=== PATIENT | female | born 1985 | race Caucasian/White ===

== ENCOUNTER 2021-01-24 19:00 | Emergency (ER) | payer MEDICAID, SELFPAY ==
[2021-01-24] VITALS (8 sets, daily range): BP systolic 116–146; BP diastolic 65–97; PULSE 64–110; RESP 13–23; TEMP 36.5; O2SAT 98–100
[2021-01-24] MEDS: Normal Saline 1,000 ML 1000 ML IV ×2 (19:17→20:00)
--- NOTE | 2021-01-24 19:21 | ED.GENADUL_ITS ---
Discharge Plan Disposition Patient Disposition: HOME Condition: Stable Discharge Details Clinical Impression: Vomiting Primary Care Provider: Unknown,Unknown ED Provider: Katiana Adams Home Meds and New Rx's Prescriptions: New ondansetron 4 mg tablet,disintegrating 4 mg PO Q8H PRN5 Days Qty: 15 RF: 0 sucralfate [Carafate] 1 gram tablet 1 g PO QACHS Qty: 7 RF: 0 No Action gabapentin 300 mg Tablet 300 - 900 mg PO DIRECTED RF: 0 lorazepam 0.5 mg Tablet 0.5 mg PO BID PRNRF: 0 metoclopramide HCl [Reglan] 5 mg Tablet 5 mg PO PRN PRNRF: 0 Discharge Instructions Instructions: Dehydration (ED), Gastroparesis (ED) Additional Instructions: Take the medications as directed. Zofran 20 minutes before meals and Carafate before meals. You may alternate the Reglan and Zofran. Follow up with primary care provider in 3-5 days. Return to ED sooner if any worsening or concerns. Increase oral fluids. Medical Decision Making 35-year-old female with history of gastroparesis presents to the ER chief complaint of vomiting which began at 4 this morning. She has not been unable to hold anything down including liquids. She did have an episode of emesis upon arrival after attempting to drink some water and vomited some clear fluid approximately 700 cc. She denies any abdominal pain she does endorse some mild diarrhea and some heartburn-like symptoms with vomiting. Denies any fever or chills. She did take approximately 10 mg of Reglan p.o. prior to arrival but she was unable to hold down. She reports that she has an episode of this nature approximately once a month. At this time work-up ordered including CBC, CMP, magnesium, urinalysis. Normal saline 1 L ordered and 10 mg Reglan IV. CBC shows elevated white blood cell count of 21.04, platelets 417, absolute neutrophils 18.7 anion gap 11.2, urinalysis shows trace protein greater than 160 ketones and many epithelial cells culture is not indicated at this time due to contaminated specimen. Due to elevated white blood cell count will order a CT abdomen pelvis. 2053: Patient returned from CT complaint of increasing nausea and heartburn. Pepcid and Zofran ordered. Imaging protocol: Computed tomography of the abdomen and pelvis with contrast. COMPARISON: No relevant prior studies available. FINDINGS: Mediastinal space: Small sliding hiatal hernia. Liver: Normal. No mass. Gallbladder and bile ducts: Normal. No calcified stones. No ductal dilation. Pancreas: Normal. No ductal dilation. Spleen: Normal. No splenomegaly. Adrenal glands: Normal. No mass. Kidneys and ureters: Punctate non-obstructing left renal calculus. Kidneys and ureters are otherwise unremarkable. Stomach and bowel: Unremarkable. No obstruction. No mucosal thickening. Appendix: Normal appendix. Intraperitoneal space: Unremarkable. No free air. No significant fluid collection. Vasculature: Unremarkable. No abdominal aortic aneurysm. Lymph nodes: Unremarkable. No enlarged lymph nodes. Urinary bladder: Urinary bladder is nondistended. Reproductive: Unremarkable as visualized. Bones/joints: Unremarkable. No acute fracture. Soft tissues: Unremarkable. IMPRESSION: 1. No acute abnormality. 2. Punctate nonobstructing left renal calculus. 3. Small sliding hiatal hernia. Thank you for allowing us to participate in the care of your patient. Dictated and Authenticated by: Broderick Quiñones MD Discussed CT results with patient and family who verbalized understanding. Patient is reporting improvement of her symptoms. Patient was given Zofran and sulcal fate to go. Patient remained hemodynamically stable throughout stay. This text was generated using [employer] dictation system, please disregard any oddities of phrase or misspellings. HPI General Mode of arrival: ambulatory . Date/Time Provider Initiated Documentation: 01/24/21 19:04 . Limitations to Documentation: no limitations . Information obtained by: patient and family (Significant other) . HPI Narrative: 35-year-old female with history of gastroparesis presents to the ER chief complaint of vomiting which began at 4 this morning. She has not been unable to hold anything down including liquids. She did have an episode of emesis upon arrival after attempting to drink some water and vomited some clear fluid approximately 700 cc. She denies any abdominal pain she does endorse some mild diarrhea and some heartburn-like symptoms with vomiting. Denies any fever or chills. She did take approximately 10 mg of Reglan p.o. prior to arrival but she was unable to hold down. She reports that she has an episode of this nature approximately once a month. Related Data Home Medications Medication Instructions Recorded Confirmed gabapentin 300 - 900 mg PO DIRECTED 01/24/21 01/24/21 lorazepam 0.5 mg PO BID PRN 01/24/21 01/24/21 metoclopramide HCl [Reglan] 5 mg PO PRN PRN 01/24/21 01/24/21 ondansetron 4 mg PO Q8H PRN 5 Days #15 tab 01/24/21 sucralfate [Carafate] 1 g PO QACHS #7 tab 01/24/21 Previous Rx's Medication Instructions Recorded ondansetron 4 mg PO Q8H PRN 5 Days #15 tab 01/24/21 sucralfate [Carafate] 1 g PO QACHS #7 tab 01/24/21 Allergies Allergy/AdvReac Type Severity Reaction Status Date / Time ibuprofen [From Advil] Allergy Severe throat Unverified 01/24/21 19:16 closes General Stated Complaint: Nausea/Vomit/Diar ARNOLD: 3 Review of Systems Narrative: Constitutional: Negative for weight loss, alert and oriented, well groomed, normal body habitus, appears comfortable. HEENT: Denies trauma, headaches, blurry vision, nasal discharge, sore throat, trouble swallowing. Chest: Denies chest pain, palpitations, irregular rhythm, hypertension. Respiratory: Denies Shortness of breath, cough, hemoptysis. GI: Denies abdominal pain, constipation. Positive nausea vomiting mild diarrhea. : Denies dysuria, hematuria, flank pain, rectal bleeding. Neuro: Denies dizziness, blurry vision, weakness, syncope, headache or facial numbness. Hematologic: Denies easy bruising, intolerance to heat or cold, hair loss. [facility] Social History Smoking/Tobacco Use Status: Current every day Tobacco Type: cigarettes Smoking risk assessment performed?: Yes Alcohol Intake: never Drug use: Socially Substance use type: marijuana Do you feel safe at home: Yes Do you feel safe in your relationship?: Yes Exam Narrative Exam Narrative: Constitutional: Alert and oriented x3. Appears stated age. Normal body habitus. Head: Normocephalic, no trauma. Eyes: Pupils PERRLA, Red reflex noted, EOM's intact. Eyelids symmetrical without lesions, discharge, or swelling. ENT: Bilateral TM's WNL, External ear normal to inspection, no mastoid TTP, swelling, or erythema, Nasal turbinates WNL, no nasal discharge. Normal dentition, Posterior pharynx WNL, no exudate. Chest: Patient with sinus arrhythmia noted on monitor, normal S1, S2, distal pulses intact. Resp: Lungs clear to auscultation bilaterally, no wheezes, rales, or rhonchi. Abdomen: Soft, nondistended, nontender to palpation all 4 quadrants. Musculoskeletal: Normal gait, 5/5 strength to all four extremities. Skin: No suspicious rashes or lesions. Capillary refill less than 2 sec. Neurologic: Cranial nerves II-XII intact. Alert and oriented x 3. DTR's intact. Hematologic/Lymphatic: No ecchymosis, no lymphadenopathy. Course Vital Signs Vital signs: Vital Signs Temperature 36.5 C 01/24/21 19:06 Pulse 64 01/24/21 19:06 Respiratory Rate 14 01/24/21 19:06 Blood Pressure 116/71 01/24/21 19:06 Pulse Oximetry 100 01/24/21 19:06 Temperature 36.5 C 01/24/21 19:06 Temperature Source Skin 01/24/21 19:06 Pulse 64 01/24/21 19:06 Respiratory Rate 14 01/24/21 19:06 Blood Pressure 116/71 01/24/21 19:06 Pulse Oximetry 100 01/24/21 19:06 Oxygen Delivery Method Room Air 01/24/21 19:06 Oxygen Flow Rate 0 01/24/21 19:06 Pain Level 9 01/24/21 19:06 Comment 01/24/21 19:06
[2021-01-24] MEDS: Metoclopramide 10 MG/2 ML VIAL IVP (19:25)
[2021-01-24 19:30] LABS: Abs Immature Grans 0.09 10^3/uL (0.0-0.06); Absolute Basophil Count 0.04 10^3/uL (0.0-0.2); Absolute Lymphocyte Count 1.54 10^3/uL (1.2-3.4); Absolute Monocyte Count 0.67 10^3/uL (0.1-0.8); Basophils % 0.2; HCT 42.6 % (36.0-46.0); HGB 14.7 g/dL (11.2-15.7); Immature Grans % 0.4; Lymphocytes % 7.3; MCH 31.1 pg (27.0-33.0); MCHC 34.5 % (32.0-36.0); MCV 90.1 fL (80-95); MPV 9.8 fL (8.0-11.0); Monocytes % 3.2; Neutrophils % 88.9; Nucleated RBC 0 %; Platelet Count 417 10^3/uL (130-400); RBC 4.73 10^6/uL (3.93-5.22); RDW 12.1 % (11.7-14.6); WBC 21.04 10^3/uL (4.4-10.8)
[2021-01-24 19:44] LABS: ALT 25 U/L (14-59); AST 11 U/L (15-37); Alkaline Phosphatase 107 U/L (46-116); Anion Gap 11.2 mmol/L (3-11); BUN 16 mg/dL (7-18); Bilirubin, Total 0.4 mg/dL (0.2-1.0); CO2 26.8 mmol/L (21.0-32.0); Calcium 9.6 mg/dL (8.5-10.1); Chloride 102 mmol/L (98-107); Glucose 295 mg/dL (74-106); Magnesium 1.8 mg/dL (1.8-2.4); Potassium 3.7 mmol/L (3.5-5.1); Sodium 140 mmol/L (136-145); Total Protein 8.5 g/dL (6.4-8.2)
[2021-01-24 19:55] LABS: Lipase 105 U/L (73-393)
--- NOTE | 2021-01-24 20:00 | DI.CT_ITS ---
Exam(s) CT ABDOMEN PELVIS W EXAM: CT ABDOMEN PELVIS W CLINICAL HISTORY: Vomiting, hx of gastroparesis,. TECHNIQUE: Imaging Protocol: Axial computed tomography images with coronal and sagittal reformatted images were created and reviewed CONTRAST MATERIAL: Intravenous: Omnipaque 100cc Oral: None COMPARISON: No exams were available for comparison FINDINGS: VISUALIZED LUNG BASES: No nodules nor pleural effusions evident. ABDOMEN: There is no ascites. LIVER: There are no focal hepatic lesions evident . GALLBLADDER/BILIARY: No obvious gallbladder pathology. CBD is not dilated. PANCREAS: No evidence of pancreatic mass nor dilatation of the pancreatic duct. SPLEEN: Spleen is not enlarged. No obvious intrasplenic lesions. Splenic and portal veins are paten t. ADRENALS: There are no significant adrenal masses. KIDNEYS:No cysts evident. No solid renal masses. There is a 3 millimeter nonobstructive calculus in the lower pole of the left kidney. No calculi in the right kidney. No hydronephrosis on either side . No hydroureter. Ureterovesical junctions appear unremarkable. There are no calculi in the nondis tended urinary bladder.. ABDOMINAL AORTA: Abdominal aorta is not enlarged. LYMPH NODES:There is no retroperitineal nor paraaortic adenopathy. ABDOMINAL WALL: No evidence of significant anterior abdominal wall hernia. GI: There is no evidence of bowel obstruction, free air, nor abscess. PELVIS: GI: No evidence of appendicitis.No evidence of sigmoid diverticulitis. LYMPH NODES: There is no intrapelvic nor inguinal adenopathy. REPRODUCTIVE: Uterus and ovaries appear age-appropriate. No free fluid in the pelvis. URINARY BLADDER: No calculi nor obvious masses evident OSSEOUS: No significant osseous lesions. IMPRESSION: 1. There is a nonobstructive 3 millimeter calculus in the lower pole region of the left kidney. The no hydronephrosis. No other significant renal findings. RADIATION DOSE DELIVERED: 1,153.73mGy.cm Total DLP DATA REPOSITORY: All CT scans at this facility are submitted to the National Radiology Data Registry (NRDR) Dose Index Registry (DIR) with the [employer] (ACR). RADIATION OPTIMIZATION: All CT scans at this facility use at least one of these dose optimization te chniques: automated exposure control; mA and/or kV adjustment per patient size (includes targeted exa ms where dose is matched to clinical indication); or iterative reconstruction.
[2021-01-24 20:01] LABS: Bilirubin Negative (Negative); Blood Negative (Negative); Clarity Sl Cloudy (Clear); Glucose 500 mg/dL (Negative); Ketones >=160 mg/dL (Negative); Leukocyte Esterase Negative (Negative); Nitrite Negative (Negative); Specific Gravity >= 1.030 (1.005-1.025); Urobilinogen 0.2 EU/dL (Up TO 0.2); pH 5.5 (5-8)
[2021-01-24 20:07] LABS: Bacteria Many HPF (Negative); C & S Indicated? No/Sq. Contamination; Crystals Negative HPF (Negative); Epithelial Cells Many HPF (Negative); Mucus Negative (Negative); RBC 0-2 HPF (0-2); WBC 0-2 HPF (0-5)
[2021-01-24] MEDS: Omnipaque 350 MG/ML 100 ML BTL IJ (20:34)
[2021-01-24] MEDS: Ondansetron 4 MG/2 ML VIAL IVP (20:57)
[2021-01-24] MEDS: FAMOTIDINE 20 MG/50 ML BAG 200 MG IVPB (20:58)
--- NOTE | 2021-01-24 21:02 | DI.VRAD_ITS ---
PROCEDURE INFORMATION: Exam: CT Abdomen And Pelvis With Contrast Exam date and time: 01/24/2021 8:02 PM Age: 35 years old Clinical indication: Abdominal pain TECHNIQUE: Imaging protocol: Computed tomography of the abdomen and pelvis with contrast. COMPARISON: No relevant prior studies available. FINDINGS: Mediastinal space: Small sliding hiatal hernia. Liver: Normal. No mass. Gallbladder and bile ducts: Normal. No calcified stones. No ductal dilation. Pancreas: Normal. No ductal dilation. Spleen: Normal. No splenomegaly. Adrenal glands: Normal. No mass. Kidneys and ureters: Punctate non-obstructing left renal calculus. Kidneys and ureters are otherwise unremarkable. Stomach and bowel: Unremarkable. No obstruction. No mucosal thickening. Appendix: Normal appendix. Intraperitoneal space: Unremarkable. No free air. No significant fluid collection. Vasculature: Unremarkable. No abdominal aortic aneurysm. Lymph nodes: Unremarkable. No enlarged lymph nodes. Urinary bladder: Urinary bladder is nondistended. Reproductive: Unremarkable as visualized. Bones/joints: Unremarkable. No acute fracture. Soft tissues: Unremarkable. IMPRESSION: 1. No acute abnormality. 2. Punctate nonobstructing left renal calculus. 3. Small sliding hiatal hernia. Dictated and Authenticated by: Broderick Quiñones MD. Ordering:AYANNA Saab MD
[2021-01-24] MEDS: Sucralfate 1 GM TAB PO (21:43)
== END 2021-01-24 21:50 | disposition home or self-care (01) ==
PROVIDERS: Emergency Provider Registered Nurse Emergency
DX: R11.10 Vomiting, unspecified (principal); D72.829 Elevated white blood cell count, unspecified
CPT/HCPCS: 36415; 80053; 81025; 83690; 96361; 96374; 96375; 99285; 74177; 81003; 81015; 83735; 85025; 99284; J2405; J2765; J3490

== ENCOUNTER 2021-01-28 01:52 | Observation (INO) | payer MEDICAID, SELFPAY ==
[2021-01-28] VITALS (9 sets, daily range): BP systolic 117–144; BP diastolic 76–99; PULSE 66–96; RESP 10–24; TEMP 36.1–36.7; O2SAT 97–100
--- NOTE | 2021-01-28 02:00 | DI.CT_ITS ---
Exam(s) CT CHEST/ABD/PEL W EXAM: CT CHEST/ABD/PEL W CLINICAL HISTORY: vomiting, wretching blood, r/o borrahaves. TECHNIQUE: Imaging Protocol: Axial computed tomography images with coronal and sagittal reformatted images were created and reviewed CONTRAST MATERIAL: Intravenous: Omnipaque 350 Contrast volume:100 ml Oral: None COMPARISON: CT CT ABDOMEN PELVIS W from 01/24/2021 FINDINGS: CHEST: LUNGS: Subtle small bilateral nodular infiltrates noted. In the right lung there is a 4 millimeters centrally hypodense nodule in the upper lobe. Another similar centrally hypodense 4 millimeter nodul es noted slightly lower down in the right upper lobe. No findings in the right middle lobe and right lower lobe and no pleural effusion. In the opposite-left lung there is a 3 millimeter nodular infiltrate in the upper lobe, located 7 mil limeters lateral to the distal aorta. There is also a centrally hypodense 6 millimeter nodule latera lly in the upper lobe. Another faint subpleural 2 millimeter nodule is seen in the lateral basal seg ment of the left lower lobe. No pleural effusions on either side. No significant focal findings in trachea and mainstem bronchi. No bronchiectasis.. MEDIASTINUM: There is no hilar nor mediastinal adenopathy. Visualized thyroid unremarkable. CARDIAC: Heart size is normal. There is no pericardial effusion.Caliber of the thoracic aorta is wit hin normal limits. OSSEOUS: No significant osseous lesions.. ABDOMEN: There is no ascites. LIVER: There are no focal hepatic lesions nor dilatation of intrahepatic ducts. GALLBLADDER/BILIARY: No obvious gallbladder pathology. CBD is not dilated. PANCREAS: No evidence of pancreatic mass nor dilatation of the pancreatic duct. SPLEEN: Spleen is not enlarged. There are no intrasplenic lesions. Splenic and portal veins are leiva nt. ADRENALS: There are no significant adrenal masses. KIDNEYS: There is a solitary nonobstructive 2 millimeter calculus in the left kidney. No other renal findings.. No hydronephrosis nor hydroureter. No obvious abnormality in the nondistended urinary b ladder. ABDOMINAL AORTA: Abdominal aorta is not enlarged. LYMPH NODES: There is no retroperitoneal nor paraaortic adenopathy. ABDOMINAL WALL: No evidence of significant anterior abdominal wall hernia. GI: There is no evidence of bowel obstruction. PELVIS: LYMPH NODES: There is no intrapelvic nor inguinal adenopathy. GI: No evidence of appendicitis.No evidence of sigmoid diverticulitis. URINARY BLADDER: No calculi nor masses evident REPRODUCTIVE: Uterus and adnexal regions appear unremarkable. There is a follicular cyst in left ova ry which measures 8-9 millimeters. No free fluid in the pelvis. OSSEOUS: No significant osseous lesions. IMPRESSION: 1. There is a solitary nonobstructive 2 millimeter calculus in left kidney. No other renal findings. 2. Small follicular cyst in left ovary noted. This measures 8-9 millimeters. No extraovarian adnexa l masses nor free fluid in the pelvis. 3. No bowel obstruction. No free air. No abscess. RADIATION DOSE DELIVERED: 1,561.43mGy.cm Total DLP DATA REPOSITORY: All CT scans at this facility are submitted to the National Radiology Data Registry (NRDR) Dose Index Registry (DIR) with the [employer] (ACR). RADIATION OPTIMIZATION: All CT scans at this facility use at least one of these dose optimization te chniques: automated exposure control; mA and/or kV adjustment per patient size (includes targeted exa ms where dose is matched to clinical indication); or iterative reconstruction.
--- NOTE | 2021-01-28 02:00 | RT.EKG_ITS ---
APPROVED REPORT Exam: Resting ECG Reason for Exam: vomiting Patient Location: E HR:64 bpm ECG Measurements Heart Rate 64 AXIS [place] 139 P 41 QRSd 80 QRS 14 QT 398 T 2 QTc 412 Conclusion Sinus arrhythmia...V-rate 51- 78, variation>10% Physician: no stemi
--- NOTE | 2021-01-28 02:00 | DI.CT_ITS ---
Exam(s) CT HEAD WO EXAM: CT HEAD WO CLINICAL HISTORY: vomting 5 days, fhx cancer, r/o mass. TECHNIQUE: Imaging Protocol: Axial computed tomography images with coronal and sagittal reformatted images were created and reviewed COMPARISON: No exams were available for comparison FINDINGS: There are no skull fractures nor fluid in the visualized paranasal sinuses. There is no evidence of intracranial hemorrhage, mass effect, or shift of midline structures. There are no extra-axial fluid collections. The ventricles are not enlarged or shifted and there is no blo od within the ventricular system nor within the basal cisterns. IMPRESSION: No acute intracranial findings on this noninfused CT scan of the brain. RADIATION DOSE DELIVERED: 683.19mGy.cm Total DLP DATA REPOSITORY: All CT scans at this facility are submitted to the National Radiology Data Registry (NRDR) Dose Index Registry (DIR) with the [employer] (ACR). RADIATION OPTIMIZATION: All CT scans at this facility use at least one of these dose optimization te chniques: automated exposure control; mA and/or kV adjustment per patient size (includes targeted exa ms where dose is matched to clinical indication); or iterative reconstruction.
[2021-01-28 02:23] LABS: Abs Immature Grans 0.06 10^3/uL (0.0-0.06); HCT 39.9 % (36.0-46.0); HGB 14.4 g/dL (11.2-15.7); MCH 31.8 pg (27.0-33.0); MCHC 36.1 % (32.0-36.0); MCV 88.1 fL (80-95); MPV 9.5 fL (8.0-11.0); Nucleated RBC 0 %; RBC 4.53 10^6/uL (3.93-5.22); RDW 11.8 % (11.7-14.6); RDW-SD 37.9 fL; WBC 17.21 10^3/uL (4.4-10.8)
[2021-01-28] MEDS: Lactated Ringers 1,000 ML 1000 ML IV (02:23)
[2021-01-28] MEDS: Normal Saline 1,000 ML 1000 ML IV (02:23)
[2021-01-28] MEDS: Ondansetron 4 MG/2 ML VIAL IVP (02:24)
[2021-01-28] MEDS: Pantoprazole 40 MG VIAL IVP ×2 (02:24→07:52)
[2021-01-28] MEDS: FAMOTIDINE 20 MG/50 ML BAG 200 MG IVPB (02:26)
[2021-01-28 02:29] LABS: Absolute Eosinophil Count 0.17 10^3/uL (0.0-0.7)
[2021-01-28 02:34] LABS: Absolute Lymphocyte Count 3.61 10^3/uL (1.2-3.4); Absolute Neutrophil Count 12.22 10^3/uL (1.2-6.7); Atypical Lymphocytes % 4; Diff Comment Manual Differential; RBC Morphology Normal
[2021-01-28 02:35] LABS: Platelet Count 418 10^3/uL (130-400)
[2021-01-28 02:40] LABS: ALT 25 U/L (14-59); AST 25 U/L (15-37); Albumin 3.6 g/dL (3.4-5.0); Alkaline Phosphatase 88 U/L (46-116); Anion Gap 9.9 mmol/L (3-11); BUN 8 mg/dL (7-18); Bilirubin, Total 0.8 mg/dL (0.2-1.0); CO2 29.1 mmol/L (21.0-32.0); CREATININE 0.6 mg/dL (0.55-1.02); Calcium 9.2 mg/dL (8.5-10.1); Chloride 98 mmol/L (98-107); Glucose 216 mg/dL (74-106); Lipase 152 U/L (73-393); Potassium 3.6 mmol/L (3.5-5.1); Sodium 137 mmol/L (136-145); Total Protein 7.5 g/dL (6.4-8.2); Troponin I < 0.05 ng/mL (<0.06)
--- NOTE | 2021-01-28 02:41 | ED.GENADUL_ITS ---
Discharge Plan Disposition Patient Disposition: HOME Condition: Good Discharge Details Clinical Impression: Vomiting, Acute dehydration Primary Care Provider: Unknown,Unknown ED Provider: Mervin Crowell Home Meds and New Rx's Prescriptions: No Action gabapentin 300 mg Tablet 300 - 900 mg PO DIRECTED RF: 0 lorazepam 0.5 mg Tablet 0.5 mg PO BID PRNRF: 0 metoclopramide HCl [Reglan] 5 mg Tablet 5 mg PO PRN PRNRF: 0 ondansetron 4 mg tablet,disintegrating 4 mg PO Q8H PRN5 Days Qty: 15 RF: 0 sucralfate [Carafate] 1 gram tablet 1 g PO QACHS Qty: 7 RF: 0 Lantus U-100 Insulin 100 unit/mL Cartridge 40 unit SUBCUT DAILY RF: 0 Jardiance 10 mg Tablet 10 mg PO DAILY RF: 0 Medical Decision Making 35-year-old female with a past medical history of type 2 diabetes, tubal ligation, and a recent diagnosis of gastroparesis established 1 year ago. Presents today for vomiting. Patient states that for the last 5 days she has been vomiting nonstop, multiple times per day. She was seen here in the emergency department on 01/24/2021. CT scan at that time was unremarkable, she was rehydrated given antiemetics and discharged home. 2 days later she went to the [facility] emergency department was also seen and assessed there for continued vomiting, she was rehydrated and discharged. She presents today f or continued symptoms. She has vomited multiple times throughout the day, she admits to seeing small speckling of blood in her vomit now. She admits to multiple episodes of dry heaving and retching as well. She now states that she is having chest pain in addition to generalized nausea and epigastric pain. She admits to a mild headache. She denies any other complaints at this time. She does admit to a strong family history of breast cancer, but denies any personal history of cancer. She has not yet seen her gastroenterology specialist. Patient has had an episode this severe in the past, and did require admission. No other complaints at this time. No other modifying factors. Physical exam demonstrates mild epigastric tenderness, notably dry mucous membranes. No subcutaneous crepitus of the neck or chest. Differential is concerning for Ericka-Longo tear, less likely for Boerhaave tear. Doubt obstruction especially with negative recent CT scan. I did discuss the risks and benefits of further CT imaging, as well as the fact patient did just have a CAT scan. However patient is notably concerned, and after discussing risks and benefits patient would like to pursue further CT reimaging. We will hydrate, give Protonix and famotidine, plan for admission for failed outpatient management of recurrent vomiting and gastroparesis. Monitor closely and reassess. Screening EKG shows no significant abnormalities. Symptoms inconsistent with ACS. 3:52 AM Patient CAT scans have returned negative for acute process, no evidence of significant abnormality. Nonobstructive bowel gas pattern is noted. Laboratory work-up stable. Patient does have elevated white count likely secondary to vomiting of the reactive process, suspect hemoconcentration with her elevated platelets and white count. Patient is feeling better after fluids and antiemetics. Discussed the case with hospitalist Dr. Davis, she agrees with the assessment and plan. Patient will be admitted for continued IV fluids and antiemetics. I have extensively reviewed the treatment plan with the patient. I have addressed all patient concerns at this time. I have also discussed the plan with the admitting physician and they agree with the current assessment and plan and have agreed to assume responsibility for the patient. All parties demonstrate verbal understanding and agreement with our assessment and plan at this time. The documentation in this chart was dictated using [employer] dictation software. Please excuse any dictation errors. FINDINGS: Brain: Normal. No hemorrhage. Unremarkable white matter. No mass effect. Cerebral ventricles: No ventriculomegaly. Paranasal sinuses: Visualized sinuses are unremarkable. No fluid levels. Mastoid air cells: Visualized mastoid air cells are well aerated. Bones/joints: Unremarkable. No acute fracture. Soft tissues: Unremarkable. IMPRESSION: No acute intracranial abnormality. Thank you for allowing us to participate in the care of your patient. Dictated and Authenticated by: Nomi Martinez MD 01/28/2021 3:15 AM Eastern Time ([place] & [place]) FINDINGS: Liver: Hepatomegaly and diffuse fatty infiltration. No mass. Gallbladder and bile ducts: Normal. No calcified stones. No ductal dilation. Pancreas: Normal. No ductal dilation. Spleen: Normal. No splenomegaly. Adrenal glands: Normal. No mass. Kidneys and ureters: Punctate left renal calculus in the lower pole No hydronephrosis. Stomach and bowel: Unremarkable. No obstruction. No mucosal thickening. Appendix: No evidence of appendicitis. Intraperitoneal space: Unremarkable. No free air. No significant fluid collection. Vasculature: Unremarkable. No abdominal aortic aneurysm. Lymph nodes: Unremarkable. No enlarged lymph nodes. Urinary bladder: Unremarkable as visualized. Reproductive: Unremarkable as visualized. Bones/joints: Mild degenerative changes in the spine. No acute fracture. Soft tissues: Unremarkable. IMPRESSION: Punctate nonobstructing left renal calculus Nonspecific nonobstructed bowel gas pattern Thank you for allowing us to participate in the care of your patient. Dictated and Authenticated by: Nomi Martinez MD 01/28/2021 3:28 AM Eastern Time ([place] & [place]) HPI General Date/Time Provider Initiated Documentation: 01/28/21 01:53 . HPI Narrative: 35-year-old female with a past medical history of type 2 diabetes, tubal ligation, and a recent diagnosis of gastroparesis established 1 year ago. Presents today for vomiting. Patient states that for the last 5 days she has been vomiting nonstop, multiple times per day. She was seen here in the emergency department on 01/24/2021. CT scan at that time was unremarkable, she was rehydrated given antiemetics and discharged home. 2 days later she went to the [facility] emergency department was also seen and assessed there for continued vomiting, she was rehydrated and discharged. She presents today for continued symptoms. She has vomited multiple times throughout the day, she admits to seeing small speckling of blood in her vomit now. She admits to multiple episodes of dry heaving and retching as well. She now states that she is having chest pain in addition to generalized nausea and epigastric pain. She admits to a mild headache. She denies any other complaints at this time. She does admit to a strong family history of breast cancer, but denies any personal history of cancer. She has not yet seen her gastroenterology specialist. Patient has had an episode this severe in the past, and did require admission. No other complaints at this time. No other modifying factors. Related Data Home Medications Medication Instructions Recorded Confirmed gabapentin 300 - 900 mg PO DIRECTED 01/24/21 01/28/21 lorazepam 0.5 mg PO BID PRN 01/24/21 01/28/21 metoclopramide HCl [Reglan] 5 mg PO PRN PRN 01/24/21 01/28/21 ondansetron 4 mg PO Q8H PRN 5 Days #15 tab 01/24/21 01/28/21 sucralfate [Carafate] 1 g PO QACHS #7 tab 01/24/21 01/28/21 empagliflozin [Jardiance] 10 mg PO DAILY 01/28/21 01/28/21 insulin glargine [Lantus U-100 40 unit SUBCUT DAILY 01/28/21 01/28/21 Insulin] Previous Rx's Medication Instructions Recorded ondansetron 4 mg PO Q8H PRN 5 Days #15 tab 01/24/21 sucralfate [Carafate] 1 g PO QACHS #7 tab 01/24/21 Allergies Allergy/AdvReac Type Severity Reaction Status Date / Time ibuprofen [From Advil] Allergy Severe throat Unverified 01/28/21 02:04 closes General Stated Complaint: Nausea/Vomit/Diar ARNOLD: 3 Review of Systems All systems reviewed & are unremarkable except as noted in HPI and below PFSH Medical History Diabetes Gastroparesis Social History Smoking/Tobacco Use Status: Current every day Tobacco Type: cigarettes Smoking risk assessment performed?: Yes Alcohol Intake: never Drug use: Socially Substance use type: marijuana Do you feel safe at home: Yes Do you feel safe in your relationship?: Yes Exam Narrative Exam Narrative: 1.Const: Well-nourished, Well-developed, appearing stated age 2.Eyes: PERRL, no conjunctival injection, and symmetrical lids. 3.ENT: Atraumatic external nose and ears. Notably dry MM. Neck: Symmetric, trachea midline, No thyromegaly. 4.CVS: +S1/S2, No murmurs or gallops. Peripheral pulses 2+ and equal in all extremities. Brisk capillary refill in all extremities. 5.RESP: Unlabored respiratory effort. Clear to auscultation bilaterally. No wheezes rales or rhonchi, no subcutaneous crepitus in the neck or chest. 6.GI: Soft, nondistended, no guarding or rebound. Mild epigastric tenderness. 7.MSK: Normocephalic/Atraumatic, Extremities w/o deformity or ttp No cyanosis or clubbing, Normal movement of all extremities 8.Skin: Warm, Dry. No rashes or lesions. 9.Neuro: merchandiser II-XII grossly intact. Sensation grossly intact, no focal neurologic deficits. 10.Psych: (AAO) x3. Appropriate mood and affect Course Vital Signs Vital signs: Vital Signs Temperature 36.4 C L 01/28/21 02:01 Pulse 71 01/28/21 02:01 Respiratory Rate 18 01/28/21 02:01 Blood Pressure 128/76 01/28/21 02:01 Pulse Oximetry 100 01/28/21 02:01 Temperature 36.4 C L 01/28/21 02:01 Temperature Source Skin 01/28/21 02:01 Pulse 85 01/28/21 02:34 Respiratory Rate 16 01/28/21 02:34 Respiratory Effort Non-Labored 01/28/21 02:08 Blood Pressure 124/81 01/28/21 02:34 Pulse Oximetry 99 01/28/21 02:34 Pain Level 10 01/28/21 02:01 Lab/Test Results Lab/Test Results: Laboratory Tests Range/Units 01/28/21 01/28/21 01/28/21 02:04 02:04 02:04 WBC (4.4-10.8) 10^3/uL 17.21 H RBC (3.93-5.22) 10^6/uL 4.53 Hgb (11.2-15.7) g/dL 14.4 Hct (36.0-46.0) % 39.9 MCV (80-95) fL 88.1 MCH (27.0-33.0) pg 31.8 MCHC (32.0-36.0) % 36.1 H RDW (11.7-14.6) % 11.8 Plt Count (130-400) 10^3/uL 418 H MPV (8.0-11.0) fL 9.5 Immature Gran % 0.0 Neutrophils % 71.0 Lymphocytes % 17.0 Atypical Lymphs % 4 Monocytes % 7.0 Eosinophils % 1.0 Basophils % 0.0 Nucleated RBC % % 0 Absolute Neutrophils (1.2-6.7) 10^3/uL 12.22 H Absolute Lymphocytes (1.2-3.4) 10^3/uL 3.61 H Absolute Monocytes (0.1-0.8) 10^3/uL 1.20 H Absolute Eosinophils (0.0-0.7) 10^3/uL 0.17 Absolute Basophils (0.0-0.2) 10^3/uL 0.00 RBC Morphology Normal VBG Lactate (0.6-1.4) mmol/L 1.0 Sodium (136-145) mmol/L 137 Potassium (3.5-5.1) mmol/L 3.6 Chloride (98-107) mmol/L 98 Carbon Dioxide (21.0-32.0) mmol/L 29.1 Anion Gap (3-11) mmol/L 9.9 BUN (7-18) mg/dL 8 Creatinine (0.55-1.02) mg/dL 0.6 Estimated GFR/1.73 m2 (mL/min/1.73m2) >= 60.00 Glucose (74-106) mg/dL 216 H Calcium (8.5-10.1) mg/dL 9.2 Total Bilirubin (0.2-1.0) mg/dL 0.8 AST (15-37) U/L 25 ALT (14-59) U/L 25 Alkaline Phosphatase (46-116) U/L 88 Troponin I (<0.06) ng/mL < 0.05 Total Protein (6.4-8.2) g/dL 7.5 Albumin (3.4-5.0) g/dL 3.6 Lipase (73-393) U/L 152
[2021-01-28] MEDS: Omnipaque 350 MG/ML 100 ML BTL IJ (03:07)
[2021-01-28 03:13] LABS: Bilirubin Small (Negative); Blood Moderate (Negative); Clarity Clear (Clear); Glucose Negative (Negative); Ketones >=160 mg/dL (Negative); Leukocyte Esterase Negative (Negative); Nitrite Negative (Negative)
--- NOTE | 2021-01-28 03:16 | DI.VRAD_ITS ---
PROCEDURE INFORMATION: Exam: CT Head Without Contrast Exam date and time: 01/28/2021 2:14 AM Age: 35 years old Clinical indication: Patient HX: Vomting 5 days, fhx cancer, R/O mass TECHNIQUE: Imaging protocol: Computed tomography of the head without contrast. Radiation optimization: All CT scans at this facility use at least one of these dose optimization techniques: automated exposure control; mA and/or kV adjustment per patient size (includes targeted exams where dose is matched to clinical indication); or iterative reconstruction. COMPARISON: No relevant prior studies available. FINDINGS: Brain: Normal. No hemorrhage. Unremarkable white matter. No mass effect. Cerebral ventricles: No ventriculomegaly. Paranasal sinuses: Visualized sinuses are unremarkable. No fluid levels. Mastoid air cells: Visualized mastoid air cells are well aerated. Bones/joints: Unremarkable. No acute fracture. Soft tissues: Unremarkable. IMPRESSION: No acute intracranial abnormality. Dictated and Authenticated by: Nomi Martinez MD. Ordering:TRUPTI Jeffries MD
[2021-01-28 03:21] LABS: Bacteria Moderate HPF (Negative); Epithelial Cells Moderate HPF (Negative); WBC 0-2 HPF (0-5)
[2021-01-28 03:22] LABS: C & S Indicated? No; Casts Negative LPF (Negative); Crystals Negative HPF (Negative); Mucus Negative (Negative)
--- NOTE | 2021-01-28 03:28 | DI.VRAD_ITS ---
PROCEDURE INFORMATION: Exam: CT Chest With Contrast; Diagnostic Exam date and time: 01/28/2021 2:14 AM Age: 35 years old Clinical indication: Nausea and vomiting; Abdominal pain; Generalized; Other: Chest discomfort; Other: Not specified; Patient HX: Vomiting, wretching blood, R/O borrahaves TECHNIQUE: Imaging protocol: Diagnostic computed tomography of the chest with contrast. 3D rendering (Not supervised by radiologist): MIP and/or 3D reconstructed images were created by the technologist. Radiation optimization: All CT scans at this facility use at least one of these dose optimization techniques: automated exposure control; mA and/or kV adjustment per patient size (includes targeted exams where dose is matched to clinical indication); or iterative reconstruction. Contrast material: OMNIPAQUE 350; Contrast volume: 100 ml; Contrast route: INTRAVENOUS (IV); COMPARISON: CT ABDOMEN PELVIS W 01/24/2021 8:36 PM FINDINGS: Lungs: Minimal nodule measuring 2 mm in the right upper lobe axial image 25 series 4. No consolidation. No masses. Pleural spaces: Unremarkable. No pneumothorax. No pleural effusion. Heart: Unremarkable. No cardiomegaly. No pericardial effusion. Aorta: Unremarkable. No aortic aneurysm. Lymph nodes: Mild residual thymic tissue in the anterior mediastinum. No enlarged lymph nodes. Bones/joints: Mild degenerative changes in the spine most pronounced at T8-T9. No acute fracture. Soft tissues: Unremarkable. IMPRESSION: No acute findings. Nonurgent findings as described PROCEDURE INFORMATION: Exam: CT Abdomen And Pelvis With Contrast Exam date and time: 01/28/2021 2:14 AM Age: 35 years old Clinical indication: Nausea and vomiting; Abdominal pain; Generalized; Other: Chest discomfort; Other: Not specified; Patient HX: Vomiting, wretching blood, R/O borrahaves TECHNIQUE: Imaging protocol: Computed tomography of the abdomen and pelvis with contrast. 3D rendering (Not supervised by radiologist): MIP and/or 3D reconstructed images were created by the technologist. Contrast material: OMNIPAQUE 350; Contrast volume: 100 ml; Contrast route: INTRAVENOUS (IV); COMPARISON: CT ABDOMEN PELVIS W 01/24/2021 8:36 PM FINDINGS: Liver: Hepatomegaly and diffuse fatty infiltration. No mass. Gallbladder and bile ducts: Normal. No calcified stones. No ductal dilation. Pancreas: Normal. No ductal dilation. Spleen: Normal. No splenomegaly. Adrenal glands: Normal. No mass. Kidneys and ureters: Punctate left renal calculus in the lower pole No hydronephrosis. Stomach and bowel: Unremarkable. No obstruction. No mucosal thickening. Appendix: No evidence of appendicitis. Intraperitoneal space: Unremarkable. No free air. No significant fluid collection. Vasculature: Unremarkable. No abdominal aortic aneurysm. Lymph nodes: Unremarkable. No enlarged lymph nodes. Urinary bladder: Unremarkable as visualized. Reproductive: Unremarkable as visualized. Bones/joints: Mild degenerative changes in the spine. No acute fracture. Soft tissues: Unremarkable. IMPRESSION: Punctate nonobstructing left renal calculus Nonspecific nonobstructed bowel gas pattern Dictated and Authenticated by: Nomi Martinez MD. Ordering:TRUPTI Jeffries MD
[2021-01-28 03:38] LABS: COVID-19 PCR Negative (Negative)
[2021-01-28 04:45] LABS: *AMPHETAMINES SCREEN URINE Negative (Negative); *BARBITURATES SCREEN URINE Negative (Negative); *BENZODIAZEPINES SCREEN URINE Negative (Negative); Cannabinoids THC Positive (Negative); Cocaine Screen,Urine Negative (Negative); METHADONE URINE SCREEN Negative (Negative); OPIATES URINE SCREEN Negative (Negative)
[2021-01-28 04:51] LABS: Tricyclic Antidepressants Negative (Negative)
[2021-01-28] MEDS: Lactated Ringers 1,000 ML 150 ML IV ×2 (05:12→12:04)
--- NOTE | 2021-01-28 06:57 | W.PM.HP.N ---
Date of service: 01/28/21 Time of Service: 06:20 Assessment and Plan Assessment and plan (1) Cannabinoid hyperemesis syndrome: Status: Acute Assessment and plan: Due to patient's description of nausea that gets better with hot showers, I suspect that the patient may have a component of cannabinoid hyperemesis syndrome. Trial ativan prn in addition to the regularly scheduled reglan/prn zofran and showers prn. I had a conversation with the patient in regards to this. (2) Gastroparesis: Status: Chronic Assessment and plan: Increase reglan to 10 mg AC/HS. Referral sent to [facility] per patient's request. (3) Upper GI bleeding: Status: Acute Assessment and plan: Very minimal. Rx protonix IV (40 mg daily) as well as carafate and clear liquids. Avoid chemical DVT ppx. Will need EGD as outpatinet. I think based on the small amount of bleeding described, the patient should be ok to be on clear liquid diet. (4) IDDM (insulin dependent diabetes mellitus): Status: Chronic Assessment and plan: Decrease lantus to 20 units in am. Provide SSI AC/HS. Hold jardiance as it can cause nausea (5) Tobacco abuse: Status: Acute Assessment and plan: Advised to quit. Provide nicotrol inhaler prn. (6) DVT prophylaxis: Status: Acute Assessment and plan: Chemical DVT ppx is contraindicated due to blood in emetic contents (7) Discharge planning issues: Status: Acute Assessment and plan: Full code History of Present Illness History of Present Illness Chief Complaint: intractable nausea/vomiting Narrative: Mr Luo is a 35 year old female with PMHx of IDDM2 with neuropathy and gastroparesis, as well as h/o anxiety/depression w/ h/o suicide attempt in distant past felt to be due to her antidepressant at the time, who presented to [facility] ED this morning with persistent n/v x 5 days. The patient has not been able to eat since Tuesday. She has been trying to drink liquids, but has not been able to keep them down at home either. She normally takes reglan 5 mg AC/HS for her gastroparesis, diagnosed by a gastric emptying study at [facility]. She has not yet had a visit with GI. She describes a feeling of heartburn, but otherwise no abdominal pain. She was just initiated on a PPI by PCP and has taken 2 doses of it so far. Otherwise, she has been relying on tums. There have been small red flecks in her emetic contents which she thought were probably blood.She had an episode of diarrhea on the same day as n/v started, but no BMs since. Endorses chills, but no fevers. No sick contacts. The patient has been seen in our ED on 01/24/21 and discharged home with rx for carafate and zofran. Patient has since been seen at [facility] ED as well and discharged home. She does occasionally smoke marijuana. We discussed that some people can develop n/v due to marijuana use. She does state that hot showers help. Has recently moved to [place] and would like to move all her care as local as possible, including her PCP and referrals to [facility], rather than [facility]. Not vaccinated against COVID-19. COVID-19 PCR negative in the ED. Patient is interested in receiving the vaccine before she leaves the hospital. Review of Systems Narrative: Endorses chronic smoker's cough. Trying to quit. Cough is nonproductive. Denies urinary sx. All systems reviewed & are unremarkable except as noted in HPI and below PFSH Medical History (Updated 01/28/21 @ 07:29 by Yesi Davis MD) Anxiety and depression Diabetes Diabetic neuropathy Gastroparesis Suicide attempt Surgical History (Updated 01/28/21 @ 07:07 by Yesi Davis MD) Amputation of left great toe H/O tubal ligation Family History (Updated 01/28/21 @ 07:09 by Yesi Davis MD) Paternal Grandmother Heart disease Diabetes Maternal Aunt Hypertension Breast cancer maternal great aunt Maternal Grandfather Hypertension Maternal Grandmother Breast cancer Maternal Aunt No problems noted. Maternal Cousin Breast cancer Maternal Cousin Breast cancer Maternal Cousin Breast cancer Social History Smoking/Tobacco Use Status: Current every day Tobacco Type: cigarettes Smoking risk assessment performed?: Yes Alcohol Intake: never Drug use: Socially Substance use type: marijuana Do you feel safe at home: Yes Do you feel safe in your relationship?: Yes Meds Allergies and Home Medications Allergies Allergy/AdvReac Type Severity Reaction Status Date / Time ibuprofen [From Advil] Allergy Severe throat Unverified 01/28/21 02:04 closes Home Medications Medication Instructions Recorded Confirmed Type gabapentin 300 - 900 mg PO DIRECTED 01/24/21 01/28/21 History lorazepam 0.5 mg PO BID PRN 01/24/21 01/28/21 History metoclopramide HCl [Reglan] 5 mg PO PRN PRN 01/24/21 01/28/21 History ondansetron 4 mg PO Q8H PRN 5 Days #15 tab 01/24/21 01/28/21 Rx sucralfate [Carafate] 1 g PO QACHS #7 tab 01/24/21 01/28/21 Rx empagliflozin [Jardiance] 10 mg PO DAILY 01/28/21 01/28/21 History insulin glargine [Lantus U-100 40 unit SUBCUT DAILY 01/28/21 01/28/21 History Insulin] omeprazole 20 mg PO DAILY 01/28/21 01/28/21 History Allergy/Medication Comments:: The patient has not yet picked up her prescription for omeprazole 20 mg but has taken some at home from a family member's prescription for the last two days. Exam Narrative Exam Narrative: General: Pleasant female who does look clinically dehydrated, A&Ox3, cooperative Neurological: A&Ox3, neuropathy B feet - unable to feel touch; no focal deficits noted otherwise Psychiatric: Appropriate speech pattern/content, good mood Skin: Visible skin intact; L great toe amputation site well healed HEENT: Atraumatic, normocephalic, EOMI, dry MM, clear oropharynx, no submandibular or cervical lymphadenopathy, no goiter or JVD Cardiovascular: RRR, no m/r/g Lungs: CTAB Gastrointestinal: soft, nontender, nondistended, + BS Genitourinary: deferred Extremities: no e/c/c BLE's, +1 pedal pulses B, s/p amputation L great toe. No lesions on B feet noted. Results Imaging Additional studies: CT head: No acute intracranial abnormality. CT chest/abdomen/pelvis: No acute findings. Punctate nonobstructing left renal calculus Nonspecific nonobstructed bowel gas pattern Labs Result diagrams: 01/28/21 02:04 01/28/21 02:04 Labs: Laboratory Results - last 24 hr 01/28/21 01/28/21 01/28/21 02:04 02:04 02:04 WBC 17.21 H RBC 4.53 Hgb 14.4 Hct 39.9 MCV 88.1 MCH 31.8 MCHC 36.1 H RDW 11.8 Plt Count 418 H MPV 9.5 Immature Gran % 0.0 Neutrophils % 71.0 Lymphocytes % 17.0 Atypical Lymphs % 4 Monocytes % 7.0 Eosinophils % 1.0 Basophils % 0.0 Nucleated RBC % 0 Absolute Neutrophils 12.22 H Absolute Lymphocytes 3.61 H Absolute Monocytes 1.20 H Absolute Eosinophils 0.17 Absolute Basophils 0.00 RBC Morphology Normal VBG Lactate 1.0 Sodium 137 Potassium 3.6 Chloride 98 Carbon Dioxide 29.1 Anion Gap 9.9 BUN 8 Creatinine 0.6 Estimated GFR/1.73 m2 >= 60.00 Glucose 216 H Calcium 9.2 Total Bilirubin 0.8 AST 25 ALT 25 Alkaline Phosphatase 88 Troponin I < 0.05 Total Protein 7.5 Albumin 3.6 Lipase 152 Urine Color Urine Clarity Urine pH Ur Specific [place] Urine Protein Urine Ketones Urine Blood Urine Nitrite Urine Bilirubin Urine Urobilinogen Ur Leukocyte Esterase Urine RBC Urine WBC Ur Epithelial Cells Urine Crystals Urine Bacteria Urine Casts Urine Mucus Ur Culture Indicated? Urine Glucose Urine Opiates Screen Urine Methadone Screen Ur Barbiturates Screen Ur Tricyclics Screen Ur Amphetamines Screen U Benzodiazepines Scrn Urine Cocaine Screen Ur THC Screen COVID-19 Source SARS-CoV-2 (PCR) 01/28/21 01/28/21 01/28/21 02:40 03:10 03:10 WBC RBC Hgb Hct MCV MCH MCHC RDW Plt Count MPV Immature Gran % Neutrophils % Lymphocytes % Atypical Lymphs % Monocytes % Eosinophils % Basophils % Nucleated RBC % Absolute Neutrophils Absolute Lymphocytes Absolute Monocytes Absolute Eosinophils Absolute Basophils RBC Morphology VBG Lactate Sodium Potassium Chloride Carbon Dioxide Anion Gap BUN Creatinine Estimated GFR/1.73 m2 Glucose Calcium Total Bilirubin AST ALT Alkaline Phosphatase Troponin I Total Protein Albumin Lipase Urine Color Yellow Urine Clarity Clear Urine pH 7.0 Ur Specific [place] 1.020 Urine Protein Negative Urine Ketones >=160 H Urine Blood Moderate H Urine Nitrite Negative Urine Bilirubin Small H Urine Urobilinogen 1.0 H Ur Leukocyte Esterase Negative Urine RBC 3-5 H Urine WBC 0-2 Ur Epithelial Cells Moderate Urine Crystals Negative Urine Bacteria Moderate Urine Casts Negative Urine Mucus Negative Ur Culture Indicated? No Urine Glucose Negative Urine Opiates Screen Negative Urine Methadone Screen Negative Ur Barbiturates Screen Negative Ur Tricyclics Screen Negative Ur Amphetamines Screen Negative U Benzodiazepines Scrn Negative Urine Cocaine Screen Negative Ur THC Screen Positive A COVID-19 Source NASOPHARYX SARS-CoV-2 (PCR) Negative Last Vital Signs Temp 36.7 C 01/28/21 06:52 Pulse 66 01/28/21 06:52 Resp 18 01/28/21 06:52 BP 117/78 01/28/21 06:52 Pulse Ox 98 01/28/21 06:52
[2021-01-28] MEDS: LORazepam 2 MG/ML VIAL 0.5 MG IVP (07:18)
[2021-01-28] MEDS: Sucralfate 1 GM TAB PO ×3 (07:31→16:49)
[2021-01-28] MEDS: Metoclopramide 10 MG TAB PO ×3 (07:31→16:49)
[2021-01-28 07:35] LABS: Abs Immature Grans 0.06 10^3/uL (0.0-0.06); Absolute Basophil Count 0.04 10^3/uL (0.0-0.2); Absolute Eosinophil Count 0.09 10^3/uL (0.0-0.7); Absolute Lymphocyte Count 3.83 10^3/uL (1.2-3.4); Absolute Monocyte Count 1.19 10^3/uL (0.1-0.8); Basophils % 0.3; Eosinophils % 0.6; HCT 35.1 % (36.0-46.0); HGB 12.5 g/dL (11.2-15.7); Immature Grans % 0.4; Lymphocytes % 26.4; MCH 30.9 pg (27.0-33.0); MCHC 35.6 % (32.0-36.0); MCV 86.7 fL (80-95); MPV 9.7 fL (8.0-11.0); Monocytes % 8.2; Neutrophils % 64.1; Nucleated RBC 0 %; Platelet Count 377 10^3/uL (130-400); RBC 4.05 10^6/uL (3.93-5.22); RDW 11.9 % (11.7-14.6); RDW-SD 37.8 fL; WBC 14.51 10^3/uL (4.4-10.8)
[2021-01-28 07:47] LABS: BUN 6 mg/dL (7-18); CREATININE 0.5 mg/dL (0.55-1.02); Calcium 8.3 mg/dL (8.5-10.1); Chloride 100 mmol/L (98-107); Glucose 195 mg/dL (74-106); Lipase 170 U/L (73-393); Sodium 136 mmol/L (136-145)
[2021-01-28] MEDS: Normal Saline Flush 10 ML SYR (07:52)
[2021-01-28 07:57] LABS: Potassium 2.9 mmol/L (3.5-5.1)
[2021-01-28] MEDS: POTASSIUM CHLORIDE 10 MEQ/100 ML BAG 100 MEQ IVPB ×2 (08:18→09:22)
[2021-01-28] MEDS: Insulin Glargine 300 UNITS/3 ML PEN 20 UNITS SC (08:22)
[2021-01-28] MEDS: Insulin Aspart 300 UNITS/3 ML PEN SC ×2 (08:23→11:47)
[2021-01-28 08:35] LABS: HCG Qual (Urine) Negative
--- NOTE | 2021-01-28 08:54 | PDOC.CMIN ---
- If Service Date Differs Date of service: 01/28/21 Time of Service: 08:54 Care Management Initial Assess REASON FOR HOSPITALIZATION:: Intractable n/v, dehydration PAST MEDICAL HISTORY/PAST SURGICAL HISTORY:: Medical History (Updated 01/28/21 @ 07:29 by Yesi Davis MD). Anxiety and depression. Diabetes. Diabetic neuropathy. Gastroparesis. Suicide attempt. Surgical History (Updated 01/28/21 @ 07:07 by Yesi Davis MD). Amputation of left great toe. H/O tubal ligation PREVIOUS FUNCTIONAL STATUS/SOCIAL/FAMILY SUPPORTS:: Cristy recently moved from [place], [place] with her Fermin and 4 children (2 of which are foster children.) They now live in a large [facility] house with her mother in law. 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 Ana is independent at baseline. CURRENT FUNCTIONAL STATUS:: Cristy was sitting up in bed when CM met with her. She denies n/v/d and is tolerating liquids. Cristy is in the process of adopting 2 foster children. She has a virtual adoption appointment with the court tomorrow at 1100 and is really hoping to be discharged home today. ADVANCE DIRECTIVES:: None on file Has patient been provided with info about the portal/API?: Yes Did the patient sign up for the portal?: No CODE STATUS:: Full Code INSURANCE COVERAGE / FINANCIAL ISSUES:: Medicaid CURRENT HOME/COMMUNITY SERVICES/EQUIPMENT:: None PRIMARY CARE PHYSICIAN:: Dr. Bird POTENTIAL DISCHARGE NEEDS:: Cristy would like a referral to [facility]. 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 PATIENT/FAMILY EDUCATION NEEDS:: Review discharge instructions and plan to follow up with outpatient providers, ask me three. ANTICIPATED BARRIERS TO DISCHARGE:: Cristy would like to find a PCP in the area. CM provided patient with a list of local PCP's. TRANSPORTATION:: Via private vehicle with . PLAN:: Discharge home when medically cleared. Follow up with [facility] and out patient providers.
[2021-01-28] MEDS: LORazepam 0.5 MG TAB PO (11:32)
[2021-01-28 12:09] LABS: Magnesium 1.6 mg/dL (1.8-2.4)
--- NOTE | 2021-01-28 16:01 | DSE_ITS ---
Date of service: 01/28/21 Time of Service: 16:02 DS: Diagnosis Discharge Diagnosis (1) Cannabinoid hyperemesis syndrome: Status: Acute (2) Gastroparesis: Status: Chronic (3) Upper GI bleeding: Status: Acute (4) IDDM (insulin dependent diabetes mellitus): Status: Chronic (5) Tobacco abuse: Status: Acute Discharge Plan Disposition Patient Disposition: HOME Condition: Improving Discharge Details Reason For Visit: Intractable N/V,Dehydration Admit Date/Time: 01/28/21 03:51 Admit Provider: Yesi Davis Attending Provider: Yesi Davis Primary Care Provider: Unknown,Unknown Hospital Course Hospital Course: Mr Luo is a 35 year old female with PMHx of IDDM2 with neuropathy and gastroparesis, as well as h/o anxiety/depression w/ h/o suicide attempt in dis tant past felt to be due to her antidepressant at the time, who presented to [facility] ED this morning with persistent n/v x 5 days. The patient has not been able to eat since Tuesday. She has been trying to drink liquids, but has not been able to keep them down at home either. She normally takes reglan 5 mg AC/HS for her gastroparesis, diagnosed by a gastric emptying study at [facility]. She has not yet had a visit with GI. She describes a feeling of heartburn, but otherwise no abdominal pain. She was just initiated on a PPI by PCP and has taken 2 doses of it so far. Otherwise, she has been relying on tums. There have been small red flecks in her emetic contents which she thought were probably blood.She had an episode of diarrhea on the same day as n/v started, but no BMs since. Endorses chills, but no fevers. No sick contacts. The patient has been seen in our ED on 01/24/21 and discharged home with rx for carafate and zofran. Patient has since been seen at [facility] ED as well and discharged home. She does occasionally smoke marijuana. We discussed that some people can develop n/v due to marijuana use. She does state that hot showers help. Has recently moved to [place] and would like to move all her care as local as possible, including her PCP and referrals to [facility], rather than [facility]. She is not vaccinated against COVID-19. COVID-19 PCR negative in the ED. Patient is interested in receiving the vaccine before she leaves the hospital and will receive J&J vaccine as agreed upon. will renew script for zofran and increase omeprazole. she was instructed to avoid THC. she was given referrals to GI, podiatry for neuropathy and endocrine. she was also provided list of local pcp's as this will be imperative to her success in her chronic disease management. discussed with Dr Gay Home Meds and New Rx's Prescriptions: Continued gabapentin 300 mg Tablet 300 - 900 mg PO DIRECTED RF: 0 lorazepam 0.5 mg Tablet 0.5 mg PO BID PRNRF: 0 metoclopramide HCl [Reglan] 5 mg Tablet 5 mg PO PRN PRNRF: 0 sucralfate [Carafate] 1 gram tablet 1 g PO QACHS Qty: 7 RF: 0 insulin glargine 100 unit/mL Cartridge 40 unit SUBCUT DAILY RF: 0 Jardiance 10 mg Tablet 10 mg PO DAILY RF: 0 ondansetron 4 mg tablet,disintegrating 4 mg PO Q8H PRN5 Days Qty: 12 RF: 0 Changed omeprazole 20 mg capsule,delayed release(DR/EC) 40 mg PO DAILY Qty: 60 RF: 0 Discharge Instructions Instructions: Acute Nausea and Vomiting (DC) Additional Instructions: your symptoms are likely due to cannabis use, cannabanoid hyperemesis syndrome. Cannabinoid hyperemesis syndrome (CHS) is a condition that sometimes develops due to the equipment operator [employer] yard use of marijuana (greater than one year typically). The syndrome causes repeated and severe vomiting and nausea, usually relieved by hot showers. These episodes of vomiting can return every few weeks or months. When people with CHS stop using marijuana, their symptoms of nausea and vomiting usually disappear. Nausea and vomiting tend to return if they start using marijuana again. you should establish with primary care provider immediately so you have follow up on your chronic diseases and have access to medication refills and monitoring. Referrals: [facility] [Provider Group] (psychiatric follow up) ENDOCRINOLOGY,[facility] [OTHER] - (T2DM) GASTROENTEROLOGY,[facility] [OTHER] - (gastroparesis) Blake Wright DPM [[facility] STAFF PHYSICIAN] - (diabetic neuropathy) Activity:: Activity as Tolerated Equipment/Supplies:: No Equipment Needed Diet:: Carb Counting Discharge Orders Discharge Orders: Discharge Order (Routine); Ordered 01/28/21 Ordered By: Rosa Rm DS: Summary Time Spent with Patient providing and/or coordinating discharge services: Greater than 30 minutes Status at Discharge Functional status at discharge: independent ambulation Overall status at discharge: patient is back to baseline Mental Status: mental status grossly normal Speech and Movement: speech and movement normal Mood: congruent mood Affect: normal affect Exam Const General: cooperative, comfortable and no acute distress Nutritional Appearance: average body habitus Orientation: alert, awake and oriented x3 HENMT Head: normal to inspection, normocephalic and atraumatic Mouth: oral mucosae normal Resp Effort & Inspection: normal respiratory effort Auscultation: clear to auscultation bilaterally Cardio Rate: regular rate Rhythm: regular rhythm GI Inspection: normal to inspection Palpation: soft Auscultation: normal bowel sounds Skin General skin exam: no rashes or lesions noted Neuro General: patient alert, patient awake and patient oriented x3 Psych Mental Status: mental status grossly normal Speech and Movement: speech and movement normal Affect: normal affect DS: Data Vitals/I&O Vitals and I&O: Vital Signs Temperature 36.6 C 01/28/21 14:31 Temperature Source Tympanic 01/28/21 14:31 Pulse 73 01/28/21 14:31 Pulse Rhythm Regular 01/28/21 08:53 Respiratory Rate 10 L 01/28/21 14:31 Respiratory Effort Non-Labored 01/28/21 08:53 Respiratory Depth Normal 01/28/21 08:53 Respiratory Pattern Normal 01/28/21 08:53 Blood Pressure 144/83 H 01/28/21 14:31 Pulse Oximetry 100 01/28/21 14:31 Oxygen Delivery Method Room Air 01/28/21 14:31 Oxygen Flow Rate 0 01/28/21 14:31 Pain Level 3 01/28/21 14:31 Intake & Output 01/27/21 01/28/21 01/28/21 23:59 11:59 23:59 Intake Total 4150 / 5013 863 / 5013 Balance 4150 / 5013 863 / 5013 Weight 89.358 kg Intake: IV 3260 / 3260 Oral 890 / 1753 863 / 1753 Other: Urine Appearance Clear Stool Characteristics Liquid Emesis Description Bile Data Completed and Pending Labs on day of discharge: Labs from last 24 hours 01/28/21 01/28/21 01/28/21 06:55 06:55 06:55 WBC 14.51 H RBC 4.05 Hgb 12.5 Hct 35.1 L MCV 86.7 MCH 30.9 MCHC 35.6 RDW 11.9 Plt Count 377 MPV 9.7 Immature Gran % 0.4 Neutrophils % 64.1 Lymphocytes % 26.4 Atypical Lymphs % Monocytes % 8.2 Eosinophils % 0.6 Basophils % 0.3 Nucleated RBC % 0 Absolute Neutrophils 9.30 H Absolute Lymphocytes 3.83 H Absolute Monocytes 1.19 H Absolute Eosinophils 0.09 Absolute Basophils 0.04 RBC Morphology VBG Lactate Sodium 136 Potassium 2.9 L Chloride 100 Carbon Dioxide 27.0 Anion Gap 9.0 BUN 6 L Creatinine 0.5 L Estimated GFR/1.73 m2 >= 60.00 Glucose 195 H Calcium 8.3 L Magnesium 1.6 L Total Bilirubin AST ALT Alkaline Phosphatase Troponin I Total Protein Albumin Lipase 170 Urine Color Urine Clarity Urine pH Ur Specific [place] Urine Protein Urine Ketones Urine Blood Urine Nitrite Urine Bilirubin Urine Urobilinogen Ur Leukocyte Esterase Urine RBC Urine WBC Ur Epithelial Cells Urine Crystals Urine Bacteria Urine Casts Urine Mucus Ur Culture Indicated? Urine Glucose Urine HCG, Qual Urine Opiates Screen Urine Methadone Screen Ur Barbiturates Screen Ur Tricyclics Screen Ur Amphetamines Screen U Benzodiazepines Scrn Urine Cocaine Screen Ur THC Screen COVID-19 Source SARS-CoV-2 (PCR) 01/28/21 01/28/21 01/28/21 03:10 03:10 03:10 WBC RBC Hgb Hct MCV MCH MCHC RDW Plt Count MPV Immature Gran % Neutrophils % Lymphocytes % Atypical Lymphs % Monocytes % Eosinophils % Basophils % Nucleated RBC % Absolute Neutrophils Absolute Lymphocytes Absolute Monocytes Absolute Eosinophils Absolute Basophils RBC Morphology VBG Lactate Sodium Potassium Chloride Carbon Dioxide Anion Gap BUN Creatinine Estimated GFR/1.73 m2 Glucose Calcium Magnesium Total Bilirubin AST ALT Alkaline Phosphatase Troponin I Total Protein Albumin Lipase Urine Color Yellow Urine Clarity Clear Urine pH 7.0 Ur Specific [place] 1.020 Urine Protein Negative Urine Ketones >=160 H Urine Blood Moderate H Urine Nitrite Negative Urine Bilirubin Small H Urine Urobilinogen 1.0 H Ur Leukocyte Esterase Negative Urine RBC 3-5 H Urine WBC 0-2 Ur Epithelial Cells Moderate Urine Crystals Negative Urine Bacteria Moderate Urine Casts Negative Urine Mucus Negative Ur Culture Indicated? No Urine Glucose Negative Urine HCG, Qual Negative Urine Opiates Screen Negative Urine Methadone Screen Negative Ur Barbiturates Screen Negative Ur Tricyclics Screen Negative Ur Amphetamines Screen Negative U Benzodiazepines Scrn Negative Urine Cocaine Screen Negative Ur THC Screen Positive A COVID-19 Source SARS-CoV-2 (PCR) 01/28/21 01/28/21 01/28/21 02:40 02:04 02:04 WBC 17.21 H RBC 4.53 Hgb 14.4 Hct 39.9 MCV 88.1 MCH 31.8 MCHC 36.1 H RDW 11.8 Plt Count 418 H MPV 9.5 Immature Gran % 0.0 Neutrophils % 71.0 Lymphocytes % 17.0 Atypical Lymphs % 4 Monocytes % 7.0 Eosinophils % 1.0 Basophils % 0.0 Nucleated RBC % 0 Absolute Neutrophils 12.22 H Absolute Lymphocytes 3.61 H Absolute Monocytes 1.20 H Absolute Eosinophils 0.17 Absolute Basophils 0.00 RBC Morphology Normal VBG Lactate 1.0 Sodium Potassium Chloride Carbon Dioxide Anion Gap BUN Creatinine Estimated GFR/1.73 m2 Glucose Calcium Magnesium Total Bilirubin AST ALT Alkaline Phosphatase Troponin I Total Protein Albumin Lipase Urine Color Urine Clarity Urine pH Ur Specific [place] Urine Protein Urine Ketones Urine Blood Urine Nitrite Urine Bilirubin Urine Urobilinogen Ur Leukocyte Esterase Urine RBC Urine WBC Ur Epithelial Cells Urine Crystals Urine Bacteria Urine Casts Urine Mucus Ur Culture Indicated? Urine Glucose Urine HCG, Qual Urine Opiates Screen Urine Methadone Screen Ur Barbiturates Screen Ur Tricyclics Screen Ur Amphetamines Screen U Benzodiazepines Scrn Urine Cocaine Screen Ur THC Screen COVID-19 Source NASOPHARYX SARS-CoV-2 (PCR) Negative 01/28/21 02:04 WBC RBC Hgb Hct MCV MCH MCHC RDW Plt Count MPV Immature Gran % Neutrophils % Lymphocytes % Atypical Lymphs % Monocytes % Eosinophils % Basophils % Nucleated RBC % Absolute Neutrophils Absolute Lymphocytes Absolute Monocytes Absolute Eosinophils Absolute Basophils RBC Morphology VBG Lactate Sodium 137 Potassium 3.6 Chloride 98 Carbon Dioxide 29.1 Anion Gap 9.9 BUN 8 Creatinine 0.6 Estimated GFR/1.73 m2 >= 60.00 Glucose 216 H Calcium 9.2 Magnesium Total Bilirubin 0.8 AST 25 ALT 25 Alkaline Phosphatase 88 Troponin I < 0.05 Total Protein 7.5 Albumin 3.6 Lipase 152 Urine Color Urine Clarity Urine pH Ur Specific [place] Urine Protein Urine Ketones Urine Blood Urine Nitrite Urine Bilirubin Urine Urobilinogen Ur Leukocyte Esterase Urine RBC Urine WBC Ur Epithelial Cells Urine Crystals Urine Bacteria Urine Casts Urine Mucus Ur Culture Indicated? Urine Glucose Urine HCG, Qual Urine Opiates Screen Urine Methadone Screen Ur Barbiturates Screen Ur Tricyclics Screen Ur Amphetamines Screen U Benzodiazepines Scrn Urine Cocaine Screen Ur THC Screen COVID-19 Source SARS-CoV-2 (PCR) [facility] Medical History (Updated 01/28/21 @ 07:29 by Yesi Davis MD) Anxiety and depression Diabetes Diabetic neuropathy Gastroparesis Suicide attempt Surgical History (Updated 01/28/21 @ 07:07 by Yesi Davis MD) Amputation of left great toe H/O tubal ligation Family History (Updated 01/28/21 @ 07:09 by Yesi Davis MD) Paternal Grandmother Heart disease Diabetes Maternal Aunt Hypertension Breast cancer maternal great aunt Maternal Grandfather Hypertension Maternal Grandmother Breast cancer Maternal Aunt No problems noted. Maternal Cousin Breast cancer Maternal Cousin Breast cancer Maternal Cousin Breast cancer Social History Smoking/Tobacco Use Status: Current every day Tobacco Type: cigarettes Smoking risk assessment performed?: Yes Alcohol Intake: never Drug use: Socially Substance use type: marijuana Do you feel safe at home: Yes Do you feel safe in your relationship?: Yes
--- NOTE | 2021-01-28 16:15 | CMDISCH_ITS ---
- If Service Date Differs Date of service: 01/28/21 Time of Service: 16:15 LACE Index Scoring Tool - Questions: Length of Stay (in days): 2 Acuity (Admit via E.D.?): Yes Comorbidities: Diabetes w/o Complication E.D. Visits: 2 - Answers: Total Score: 8 Risk of Readmission: Low Risk Care Management Discharge Reason for Hospitalization: Intractable n/v, dehydration Discharge Plan: Discharge home with via private vehicle. Cristy should follow up with her PCP and keep her scheduled appontment with [facility]. Referral will also be placed for [facility] (chronic anxiety and depression). Patient/Family Education Needs: Review of discharge instructions and plan to follow up with out patient providers, ask me three.
== END 2021-01-28 17:13 | disposition home or self-care (01) ==
LOC: ER 04:39 → MS 04:41
PROVIDERS: Admitting Provider Internal Medicine; Emergency Provider Student in an Organized Health Care Education/Training Program; Visit Provider Internal Medicine
DX: R11.2 Nausea with vomiting, unspecified (principal); F12.90 Cannabis use, unspecified, uncomplicated; Z20.822 Contact with and (suspected) exposure to COVID-19; K92.0 Hematemesis; E11.43 Type 2 diabetes mellitus with diabetic autonomic (poly)neuropathy; K31.84 Gastroparesis; Z79.4 Long term (current) use of insulin; F17.210 Nicotine dependence, cigarettes, uncomplicated; E11.40 Type 2 diabetes mellitus with diabetic neuropathy, unspecified; F41.9 Anxiety disorder, unspecified; F32.9 Major depressive disorder, single episode, unspecified; Z91.5 Personal history of self-harm
CPT/HCPCS: 36415; 36416; 74177; 80048; 80053; 80307; 82962; 83690; 87635; 93005; 96361; 96365; 96375; 99285; 70450; 71260; 81003; 81015; 81025; 83605; 83735; 84484; 85025; 93010; 99220; J2060; J2405; J3480; J3490

== ENCOUNTER 2021-03-08 12:54 | Emergency (ER) | payer MEDICAID, SELFPAY ==
[2021-03-08 13:18] VITALS: BP 119/79; PULSE 120; RESP 18; TEMP 37.2; O2SAT 98
[2021-03-08] MEDS: Normal Saline 1,000 ML 1000 ML IV ×2 (13:20→14:25)
[2021-03-08 13:34] LABS: Bilirubin Small (Negative); Blood Moderate (Negative); Clarity Cloudy (Clear); Glucose 500 mg/dL (Negative); Ketones >=160 mg/dL (Negative); Leukocyte Esterase Negative (Negative); Nitrite Negative (Negative); Specific Gravity 1.025 (1.005-1.025); Urobilinogen 0.2 EU/dL (Up TO 0.2)
[2021-03-08 13:34] LABS: Abs Immature Grans 0.07 10^3/uL (0.0-0.06); Absolute Basophil Count 0.05 10^3/uL (0.0-0.2); Absolute Eosinophil Count 0.03 10^3/uL (0.0-0.7); Absolute Lymphocyte Count 2.74 10^3/uL (1.2-3.4); Absolute Neutrophil Count 12.08 10^3/uL (1.2-6.7); Basophils % 0.3; Eosinophils % 0.2; HCT 45.8 % (36.0-46.0); HGB 15.6 g/dL (11.2-15.7); Immature Grans % 0.4; Lymphocytes % 16.7; MCH 30.8 pg (27.0-33.0); MCHC 34.1 % (32.0-36.0); MCV 90.5 fL (80-95); MPV 9.7 fL (8.0-11.0); Monocytes % 8.7; Neutrophils % 73.7; Nucleated RBC 0 %; Platelet Count 454 10^3/uL (130-400); RBC 5.06 10^6/uL (3.93-5.22); RDW 12.4 % (11.7-14.6); WBC 16.39 10^3/uL (4.4-10.8)
[2021-03-08 13:37] LABS: Absolute Monocyte Count 1.43 10^3/uL (0.1-0.8)
[2021-03-08 13:50] LABS: WBC >50 HPF (0-5)
[2021-03-08 13:51] LABS: Bacteria Many HPF (Negative); C & S Indicated? Yes
--- NOTE | 2021-03-08 14:00 | RT.EKG_ITS ---
APPROVED REPORT Exam: Resting ECG Reason for Exam: tachycardia Patient Location: E HR:108 bpm ECG Measurements Heart Rate 108 AXIS MD 154 P 79 QRSd 79 QRS 20 QT 350 T -1 QTc 469 Conclusion Sinus tachycardia...rate> 99
[2021-03-08 14:06] LABS: ALT 29 U/L (14-59); AST 27 U/L (15-37); Albumin 4.2 g/dL (3.4-5.0); Alkaline Phosphatase 123 U/L (46-116); Anion Gap 7.8 mmol/L (3-11); BUN 18 mg/dL (7-18); Bilirubin, Total 0.6 mg/dL (0.2-1.0); CO2 34.2 mmol/L (21.0-32.0); CREATININE 0.9 mg/dL (0.55-1.02); Calcium 9.8 mg/dL (8.5-10.1); Chloride 95 mmol/L (98-107); Glucose 310 mg/dL (74-106); Lipase 192 U/L (73-393); Potassium 3.1 mmol/L (3.5-5.1); Sodium 137 mmol/L (136-145)
[2021-03-08 14:18] LABS: BE (Venous) 10 mmol/L (-2-3); HCO3 (Venous) 34 mmol/L (23-28); O2 Sat (Venous) 46 %; TCO2 (Venous) 31 mmol/L (24-29); pCO2 (Venous) 50 mmHg (41-51); pH (Venous) 7.44 (7.31-7.41); pO2 (Venous) 24 mmHg
[2021-03-08 14:18] LABS: HCG Qual (Serum) Negative
[2021-03-08] MEDS: Ondansetron 4 MG/2 ML VIAL IVP (14:25)
[2021-03-08] MEDS: cefTRIAXone 1 GM/50 ML BAG IVPB (14:33)
--- NOTE | 2021-03-08 15:30 | ED.GENADUL_ITS ---
Discharge Plan Disposition Patient Disposition: HOME Condition: Serious Discharge Details Clinical Impression: Vomiting, Acute dehydration, Nausea and vomiting, IDDM (insulin dependent diabetes mellitus), UTI (urinary tract infection) Primary Care Provider: Unknown,Unknown ED Provider: Staci Martin Home Meds and New Rx's Prescriptions: New promethazine 25 mg suppository 25 mg NV ONCE Qty: 12 RF: 0 cephalexin 500 mg tablet 500 mg PO BID 7 Days Qty: 14 RF: 0 potassium chloride 20 mEq tablet extended release 40 meq PO DAILY Qty: 10 RF: 0 Continued gabapentin 300 mg Tablet 300 - 900 mg PO DIRECTED RF: 0 lorazepam 0.5 mg Tablet 0.5 mg PO BID PRNRF: 0 metoclopramide HCl [Reglan] 5 mg Tablet 5 mg PO PRN PRNRF: 0 sucralfate [Carafate] 1 gram tablet 1 g PO QACHS Qty: 7 RF: 0 insulin glargine 100 unit/mL Cartridge 40 unit SUBCUT DAILY RF: 0 Jardiance 10 mg Tablet 10 mg PO DAILY RF: 0 omeprazole 20 mg capsule,delayed release(DR/EC) 40 mg PO DAILY Qty: 60 RF: 0 Discharge Instructions Instructions: Dehydration (ED), Urinary Tract Infection in Women (ED), Acute Nausea and Vomiting (ED) Additional Instructions: Take antibiotics as prescribed, your next dose is in the morning Take potassium as prescribed I am concerned regarding her diabetes and urinary tract infection, you cannot tolerate your oral medication, you must return to the emergency room for reevaluation Take your insulin tonight as prescribed Referrals: Yuridia Jones [Emergency Nurse] - Medical Decision Making Patient a higher risk individual, she has a history of insulin-dependent diabetes although she is alert, oriented of decisional capacity, able to tolerate p.o. I will treat her with 2 L of normal saline, antiemetic, she is feeling symptomatically improved, she is aware that she does have leukocytosis, she is still mildly tachycardic, likely glucose induced, she will take her insulin when she arrives home There is no evidence of diabetic ketoacidosis She is feeling marked improvement I did recommend admission, patient prefers trial at home She was given a dose of IV antibiotics and has prescription for home Have given her suppositories and she have Reglan additionally She is afebrile and otherwise nontoxic in appearance although is mildly persistently tachycardic, she will need close outpatient reassessment given her comorbidities She instructed to take her insulin when she arrives home Low threshold should she have new or worsening complaints, she is discharged home in stable condition at this time potassium supplementation for home, Keflex prescription for home Urine culture pending Phenergan suppository for home She does have greater than 50 white blood cells associated leukocyte esterase and nitrate negative which is interesting, she does have many bacteria, Will Treat with Keflex Medical Records Medical records reviewed: Yes I reviewed the patient's medical records. Lab Data Lab results reviewed: Yes I reviewed the patient's lab results. HPI General Mode of arrival: ambulatory . Date/Time Provider Initiated Documentation: 03/08/21 13:04 . Limitations to Documentation: no limitations . Information obtained by: patient . HPI Narrative: This 35-year-old female presents with nausea and vomiting. She denies any pain complaints. She has a history of insulin-dependent diabetes, long-acting only She is not taking her blood sugar since Tuesday. She states it is a recurrent issue for her. She denies any fever or chills. She denies any pain complaints. She denies any urinary symptoms. She is not been able to hold anything down since Tuesday reportedly. She is not taking her insulin prescribed per patient. Related Data Home Medications Medication Instructions Recorded Confirmed gabapentin 300 - 900 mg PO DIRECTED 01/24/21 03/08/21 lorazepam 0.5 mg PO BID PRN 01/24/21 03/08/21 metoclopramide HCl [Reglan] 5 mg PO PRN PRN 01/24/21 03/08/21 sucralfate [Carafate] 1 g PO QACHS #7 tab 01/24/21 03/08/21 Jardiance 10 mg PO DAILY 01/28/21 03/08/21 insulin glargine 40 unit SUBCUT DAILY 01/28/21 03/08/21 omeprazole 40 mg PO DAILY #60 cap 01/28/21 03/08/21 cephalexin 500 mg PO BID 7 Days #14 tab 03/08/21 potassium chloride 40 meq PO DAILY #10 tab 03/08/21 promethazine 25 mg NV ONCE #12 ea 03/08/21 Previous Rx's Medication Instructions Recorded sucralfate [Carafate] 1 g PO QACHS #7 tab 01/24/21 omeprazole 40 mg PO DAILY #60 cap 01/28/21 cephalexin 500 mg PO BID 7 Days #14 tab 03/08/21 potassium chloride 40 meq PO DAILY #10 tab 03/08/21 promethazine 25 mg NV ONCE #12 ea 03/08/21 Allergies Allergy/AdvReac Type Severity Reaction Status Date / Time ibuprofen [From Advil] Allergy Severe throat Unverified 03/08/21 13:40 closes General Stated Complaint: Nausea/Vomit/Diar ARNOLD: 3 Review of Systems All systems reviewed & are unremarkable except as noted in HPI and below PFSH Medical History (Updated 03/08/21 @ 16:35 by EUNICE Akers) Anxiety and depression Diabetes Diabetic neuropathy Gastroparesis Suicide attempt Surgical History (Updated 01/28/21 @ 07:07 by Yesi Davis MD) Amputation of left great toe H/O tubal ligation Family History (Updated 01/28/21 @ 07:09 by Yesi Davis MD) Paternal Grandmother Heart disease Diabetes Maternal Aunt Hypertension Breast cancer maternal great aunt Maternal Grandfather Hypertension Maternal Grandmother Breast cancer Maternal Aunt No problems noted. Maternal Cousin Breast cancer Maternal Cousin Breast cancer Maternal Cousin Breast cancer Social History Smoking/Tobacco Use Status: Current every day Tobacco Type: cigarettes Smoking risk assessment performed?: Yes Alcohol Intake: never Drug use: Socially Substance use type: marijuana Do you feel safe at home: Yes Do you feel safe in your relationship?: Yes Exam Const General: cooperative and no acute distress HENMT Head: normal to inspection Mouth: oral mucosae normal Other: Moist mucous membrane Eyes Pupils: PERRL Resp Effort & Inspection: normal respiratory effort Auscultation: clear to auscultation bilaterally Cardio Rate: regular rate Rhythm: regular rhythm GI Inspection: normal to inspection Other: No CVA tenderness, nontender abdominal exam Skin General skin exam: no rashes or lesions noted Neuro General: patient alert and patient oriented x3 Extrem General: normal to inspection Other: Distal pulses intact Course Vital Signs Vital signs: Vital Signs Temperature 37.2 C 03/08/21 13:18 Pulse 120 H 03/08/21 13:18 Respiratory Rate 18 03/08/21 13:18 Blood Pressure 119/79 03/08/21 13:18 Pulse Oximetry 98 03/08/21 13:18 Temperature 37.2 C 03/08/21 13:18 Temperature Source Oral 03/08/21 13:18 Pulse 120 H 03/08/21 13:18 Respiratory Rate 18 03/08/21 13:18 Respiratory Effort Non-Labored 03/08/21 13:33 Blood Pressure 119/79 03/08/21 13:18 Blood Pressure Position Supine 03/08/21 13:18 Pulse Oximetry 98 03/08/21 13:18 Lab/Test Results Lab/Test Results: 03/08/21 13:15 Urine - Reflex from Ua Urine Culture - Pending Laboratory Tests Range/Units 03/08/21 03/08/21 03/08/21 13:15 13:20 13:20 WBC (4.4-10.8) 10^3/uL 16.39 H RBC (3.93-5.22) 10^6/uL 5.06 Hgb (11.2-15.7) g/dL 15.6 Hct (36.0-46.0) % 45.8 MCV (80-95) fL 90.5 MCH (27.0-33.0) pg 30.8 MCHC (32.0-36.0) % 34.1 RDW (11.7-14.6) % 12.4 Plt Count (130-400) 10^3/uL 454 H MPV (8.0-11.0) fL 9.7 Immature Gran % 0.4 Neutrophils % 73.7 Lymphocytes % 16.7 Monocytes % 8.7 Eosinophils % 0.2 Basophils % 0.3 Nucleated RBC % % 0 Absolute Neutrophils (1.2-6.7) 10^3/uL 12.08 H Absolute Lymphocytes (1.2-3.4) 10^3/uL 2.74 Absolute Monocytes (0.1-0.8) 10^3/uL 1.43 H Absolute Eosinophils (0.0-0.7) 10^3/uL 0.03 Absolute Basophils (0.0-0.2) 10^3/uL 0.05 VBG pH (7.31-7.41) VBG pCO2 (41-51) mmHg VBG pO2 mmHg VBG HCO3 (23-28) mmol/L VBG Total CO2 (24-29) mmol/L VBG O2 Saturation % VBG Base Excess (-2-3) mmol/L VBG Lactate (0.6-1.4) mmol/L Sodium (136-145) mmol/L 137 Potassium (3.5-5.1) mmol/L 3.1 L Chloride (98-107) mmol/L 95 L Carbon Dioxide (21.0-32.0) mmol/L 34.2 H Anion Gap (3-11) mmol/L 7.8 BUN (7-18) mg/dL 18 Creatinine (0.55-1.02) mg/dL 0.9 Estimated GFR/1.73 m2 (mL/min/1.73m2) >= 60.00 Glucose (74-106) mg/dL 310 H Calcium (8.5-10.1) mg/dL 9.8 Total Bilirubin (0.2-1.0) mg/dL 0.6 AST (15-37) U/L 27 ALT (14-59) U/L 29 Alkaline Phosphatase (46-116) U/L 123 H Total Protein (6.4-8.2) g/dL 9.0 H Albumin (3.4-5.0) g/dL 4.2 Lipase (73-393) U/L 192 Serum HCG, Qual Urine Color (Yellow) Yellow Urine Clarity (Clear) Cloudy Urine pH (5-8) 6.0 Ur Specific [place] (1.005-1.025) 1.025 Urine Protein (Negative) mg/dL 30 H Urine Ketones (Negative) mg/dL >=160 H Urine Blood (Negative) Moderate H Urine Nitrite (Negative) Negative Urine Bilirubin (Negative) Small H Urine Urobilinogen (Up TO 0.2) EU/dL 0.2 Ur Leukocyte Esterase (Negative) Negative Urine RBC (0-2) HPF Urine WBC (0-5) HPF >50 H Ur Epithelial Cells (Negative) HPF Urine Crystals (Negative) HPF Urine Bacteria (Negative) HPF Many Urine Casts (Negative) LPF Urine Mucus (Negative) Ur Culture Indicated? Yes Urine Glucose (Negative) mg/dL 500 H Range/Units 03/08/21 03/08/21 03/08/21 13:20 14:10 14:10 WBC (4.4-10.8) 10^3/uL RBC (3.93-5.22) 10^6/uL Hgb (11.2-15.7) g/dL Hct (36.0-46.0) % MCV (80-95) fL MCH (27.0-33.0) pg MCHC (32.0-36.0) % RDW (11.7-14.6) % Plt Count (130-400) 10^3/uL MPV (8.0-11.0) fL Immature Gran % Neutrophils % Lymphocytes % Monocytes % Eosinophils % Basophils % Nucleated RBC % % Absolute Neutrophils (1.2-6.7) 10^3/uL Absolute Lymphocytes (1.2-3.4) 10^3/uL Absolute Monocytes (0.1-0.8) 10^3/uL Absolute Eosinophils (0.0-0.7) 10^3/uL Absolute Basophils (0.0-0.2) 10^3/uL VBG pH (7.31-7.41) 7.44 H VBG pCO2 (41-51) mmHg 50 VBG pO2 mmHg 24 VBG HCO3 (23-28) mmol/L 34 H VBG Total CO2 (24-29) mmol/L 31 H VBG O2 Saturation % 46 VBG Base Excess (-2-3) mmol/L 10 H VBG Lactate (0.6-1.4) mmol/L 1.0 Sodium (136-145) mmol/L Potassium (3.5-5.1) mmol/L Chloride (98-107) mmol/L Carbon Dioxide (21.0-32.0) mmol/L Anion Gap (3-11) mmol/L BUN (7-18) mg/dL Creatinine (0.55-1.02) mg/dL Estimated GFR/1.73 m2 (mL/min/1.73m2) Glucose (74-106) mg/dL Calcium (8.5-10.1) mg/dL Total Bilirubin (0.2-1.0) mg/dL AST (15-37) U/L ALT (14-59) U/L Alkaline Phosphatase (46-116) U/L Total Protein (6.4-8.2) g/dL Albumin (3.4-5.0) g/dL Lipase (73-393) U/L Serum HCG, Qual Negative Urine Color (Yellow) Urine Clarity (Clear) Urine pH (5-8) Ur Specific [place] (1.005-1.025) Urine Protein (Negative) mg/dL Urine Ketones (Negative) mg/dL Urine Blood (Negative) Urine Nitrite (Negative) Urine Bilirubin (Negative) Urine Urobilinogen (Up TO 0.2) EU/dL Ur Leukocyte Esterase (Negative) Urine RBC (0-2) HPF Urine WBC (0-5) HPF Ur Epithelial Cells (Negative) HPF Urine Crystals (Negative) HPF Urine Bacteria (Negative) HPF Urine Casts (Negative) LPF Urine Mucus (Negative) Ur Culture Indicated? Urine Glucose (Negative) mg/dL POC- Test(urine) Negative
[2021-03-08 15:47] VITALS: BP 141/84; PULSE 111; RESP 18; TEMP 36.8; O2SAT 98
[2021-03-08] MEDS: Ondansetron O.D.T. 4 MG TABEF, 3 TABS/BTL PO (16:45)
[2021-03-08 16:55] VITALS: BP 141/84; PULSE 111; RESP 18; TEMP 36.8; O2SAT 98
== END 2021-03-08 16:53 | disposition home or self-care (01) ==
PROVIDERS: Emergency Provider Physician Assistant
DX: N39.0 Urinary tract infection, site not specified (principal); E86.0 Dehydration; R11.2 Nausea with vomiting, unspecified; E87.6 Hypokalemia; R00.0 Tachycardia, unspecified; E11.9 Type 2 diabetes mellitus without complications; Z79.4 Long term (current) use of insulin
CPT/HCPCS: 36415; 80053; 81025; 82805; 83690; 87077; 93005; 96361; 96365; 96375; 99284; 81003; 81015; 83605; 84703; 85025; 87086; 87186; 93010; J0696; J2405

== ENCOUNTER 2021-03-08 19:39 | Observation (INO) | payer MEDICAID, SELFPAY ==
[2021-03-08 19:47] VITALS: BP 130/81; O2SAT 100
--- NOTE | 2021-03-08 20:00 | DI.RAD_ITS ---
Exam(s) XR ABDOMEN FLAT UPRIGHT EXAM: 2D digital imaging was performed. CLINICAL HISTORY: vomiting, r/o obstruction. COMPARISON: No exams were available for comparison TECHNIQUE: Supine and uprightSupine and Lateral views of the abdomen was performed. FINDINGS: BOWEL GAS PATTERN: Nondistended.No free air. CALCIFICATIONS: No radiopaque calcifications. OSSEOUS STRUCTURES: Normal for age. OTHER FINDINGS: None. Lung bases clear IMPRESSION: 1. Nonobstructive bowel gas pattern. 2. No radiopaque calculi. 3. No free air. DATA REPOSITORY: RADIATION DOSE DELIVERED:
[2021-03-08] MEDS: Lactated Ringers 1,000 ML 1000 ML IV (20:55)
[2021-03-08 20:57] LABS: BE (Venous) 7 mmol/L (-2-3); HCO3 (Venous) 30 mmol/L (23-28); O2 Sat (Venous) 87 %; TCO2 (Venous) 27 mmol/L (24-29); pCO2 (Venous) 41 mmHg (41-51); pH (Venous) 7.47 (7.31-7.41); pO2 (Venous) 49 mmHg
--- NOTE | 2021-03-08 21:19 | DI.VRAD_ITS ---
PROCEDURE INFORMATION: Exam: XR Abdomen Exam date and time: 03/08/2021 8:14 PM Age: 35 years old Clinical indication: Other: Vomiting, R/O obstruction TECHNIQUE: Imaging protocol: XR of the abdomen. Views: 2 Views. Upright and supine views. COMPARISON: CT CHEST/ABD/PEL W 01/28/2021 2:57 AM FINDINGS: Gastrointestinal tract: Normal. No bowel dilation. Intraperitoneal space: Normal. No free air. Bones/joints: Unremarkable for age. IMPRESSION: No acute findings. Dictated and Authenticated by: Josh Miller MD. Ordering:[id number] Jeffries MD
[2021-03-08 21:25] LABS: ALT 25 U/L (14-59); AST 29 U/L (15-37); Albumin 3.6 g/dL (3.4-5.0); Alkaline Phosphatase 104 U/L (46-116); Anion Gap 9.4 mmol/L (3-11); BUN 16 mg/dL (7-18); Bilirubin, Total 0.6 mg/dL (0.2-1.0); CO2 29.6 mmol/L (21.0-32.0); CREATININE 0.6 mg/dL (0.55-1.02); Calcium 8.9 mg/dL (8.5-10.1); Chloride 98 mmol/L (98-107); Glucose 269 mg/dL (74-106); Lipase 130 U/L (73-393); Potassium 3.7 mmol/L (3.5-5.1); Sodium 137 mmol/L (136-145); Total Protein 7.3 g/dL (6.4-8.2)
--- NOTE | 2021-03-08 21:36 | W.ED.GENAD ---
Discharge Plan Disposition Patient Disposition: [facility] INPATIENT Condition: Stable Discharge Details Clinical Impression: Vomiting, Gastroparesis, UTI (urinary tract infection) Primary Care Provider: Unknown,Unknown ED Provider: Mervin Crowell Home Meds and New Rx's Prescriptions: No Action gabapentin 300 mg Tablet 300 - 900 mg PO DIRECTED RF: 0 lorazepam 0.5 mg Tablet 0.5 mg PO BID PRNRF: 0 metoclopramide HCl [Reglan] 5 mg Tablet 5 mg PO PRN PRNRF: 0 sucralfate [Carafate] 1 gram tablet 1 g PO QACHS Qty: 7 RF: 0 insulin glargine 100 unit/mL Cartridge 40 unit SUBCUT DAILY RF: 0 Jardiance 10 mg Tablet 10 mg PO DAILY RF: 0 omeprazole 20 mg capsule,delayed release(DR/EC) 40 mg PO DAILY Qty: 60 RF: 0 promethazine 25 mg suppository 25 mg [place] ONCE Qty: 12 RF: 0 cephalexin 500 mg tablet 500 mg PO BID 7 Days Qty: 14 RF: 0 potassium chloride 20 mEq tablet extended release 40 meq PO DAILY Qty: 10 RF: 0 Medical Decision Making 35-year-old female with a past medical history of gastroparesis, insulin-dependent diabetes, intermittent cannabinoid hyperemesis syndrome, presents for persistent vomiting. Patient has been vomiting for the last day or so, unable to keep anything down. She has also had burning with urination, she was here earlier today and was diagnosed with urinary tract infection stable vital signs. She was rehydrated, no imaging was done at this time as she demonstrated no signs of an acute surgical abdomen or obstruction. Vomiting improved with Zofran, which she has at home as well as Reglan, fortunately at home even with the Zofran and Reglan she had 4-5 more episodes of vomiting and has been unable to keep down any fluids, any pills, issues or she takes Zofran she vomits again. She admits to abdominal nausea, but no significant pain. She denies any fever or chills. No other sick contacts at home. No complaints at this time. She has been also unable to take any of her antibiotics secondary to her vomiting past surgical history is positive for tubal ligation.. Throughout the physical exam demonstrates minimal left upper quadrant upper epigastric tenderness, no pain at McBurney's point, negative Owen sign. Notably dry mucous membranes. Patient is nauseous and dry heaving here. With the patient's failure at home for outpatient management, it was recommended to her by her previous provider that she return if she had persistent vomiting. Patient's laboratory work-up has returned, her electrolytes are stable, renal function good. Glucose stable. No evidence of acidosis, no anion gap. X-ray negative for obstruction. No evidence of an acute surgical abdomen based on exam. No indication for CT scan. Symptoms inconsistent with DKA. The patient's inability to tolerate anything p.o., including her antiemetics or the antibiotics for her infection, I feel that she is appropriate for admission for IV fluids, continued antiemetics, and we will give a dose of IV antibiotics and she has been unable to keep down her Keflex. Discussed the case with Dr. Mccray, he agrees with the assessment and plan. I have extensively reviewed the treatment plan with the patient. I have addressed all patient concerns at this time. I have also discussed the plan with the admitting physician and they agree with the current assessment and plan and have agreed to assume responsibility for the patient. All parties demonstrate verbal understanding and agreement with our assessment and plan at this time. The documentation in this chart was dictated using [employer] dictation software. Please excuse any dictation errors. FINDINGS: Gastrointestinal tract: Normal. No bowel dilation. Intraperitoneal space: Normal. No free air. Bones/joints: Unremarkable for age. IMPRESSION: No acute findings. Thank you for allowing us to participate in the care of your patient. Dictated and Authenticated by: Josh Miller MD 03/08/2021 9:18 PM Eastern Time ([place] & [place]) HPI General Date/Time Provider Initiated Documentation: 03/08/21 19:39. HPI Narrative: 35-year-old female with a past medical history of gastroparesis, insulin-dependent diabetes, intermittent cannabinoid hyperemesis syndrome, presents for persistent vomiting. Patient has been vomiting for the last day or so, unable to keep anything down. She has also had burning with urination, she was here earlier today and was diagnosed with urinary tract infection stable vital signs. She was rehydrated, no imaging was done at this time as she demonstrated no signs of an acute surgical abdomen or obstruction. Vomiting improved with Zofran, which she has at home as well as Reglan, fortunately at home even with the Zofran and Reglan she had 4-5 more episodes of vomiting and has been unable to keep down any fluids, any pills, issues or she takes Zofran she vomits again. She admits to abdominal nausea, but no significant pain. She denies any fever or chills. No other sick contacts at home. No complaints at this time. She has been also unable to take any of her antibiotics secondary to her vomiting past surgical history is positive for tubal ligation.. Related Data Home Medications Medication Instructions Recorded Confirmed gabapentin 300 - 900 mg PO DIRECTED 01/24/21 03/08/21 lorazepam 0.5 mg PO BID PRN 01/24/21 03/08/21 metoclopramide HCl [Reglan] 5 mg PO PRN PRN 01/24/21 03/08/21 sucralfate [Carafate] 1 g PO QACHS #7 tab 01/24/21 03/08/21 Jardiance 10 mg PO DAILY 01/28/21 03/08/21 insulin glargine 40 unit SUBCUT DAILY 01/28/21 03/08/21 omeprazole 40 mg PO DAILY #60 cap 01/28/21 03/08/21 cephalexin 500 mg PO BID 7 Days #14 tab 03/08/21 03/08/21 potassium chloride 40 meq PO DAILY #10 tab 03/08/21 03/08/21 promethazine 25 mg [place] ONCE #12 ea 03/08/21 03/08/21 Previous Rx's Medication Instructions Recorded sucralfate [Carafate] 1 g PO QACHS #7 tab 01/24/21 omeprazole 40 mg PO DAILY #60 cap 01/28/21 cephalexin 500 mg PO BID 7 Days #14 tab 03/08/21 potassium chloride 40 meq PO DAILY #10 tab 03/08/21 promethazine 25 mg AK ONCE #12 ea 03/08/21 Allergies Allergy/AdvReac Type Severity Reaction Status Date / Time ibuprofen [From Advil] Allergy Severe throat Unverified 03/08/21 13:40 closes General Stated Complaint: Nausea/Vomit/Diar ARNOLD: 3 Review of Systems All systems reviewed & are unremarkable except as noted in HPI and below PFSH Medical History Anxiety and depression Diabetes Diabetic neuropathy Gastroparesis Suicide attempt Surgical History Amputation of left great toe H/O tubal ligation Family History Paternal Grandmother Heart disease Diabetes Maternal Aunt Hypertension Breast cancer maternal great aunt Maternal Grandfather Hypertension Maternal Grandmother Breast cancer Maternal Aunt No problems noted. Maternal Cousin Breast cancer Maternal Cousin Breast cancer Maternal Cousin Breast cancer Social History Smoking/Tobacco Use Status: Current every day Tobacco Type: cigarettes Smoking risk assessment performed?: Yes Alcohol Intake: never Drug use: Socially Substance use type: marijuana Do you feel safe at home: Yes Do you feel safe in your relationship?: Yes Exam Narrative Exam Narrative: 1.Const: Well-nourished, Well-developed, appearing stated age 2.Eyes: PERRL, no conjunctival injection, and symmetrical lids. 3.ENT: Atraumatic external nose and ears. Notably dry MM. Neck: Symmetric, trachea midline, No thyromegaly. 4.CVS: +S1/S2, No murmurs or gallops. Peripheral pulses 2+ and equal in all extremities. Brisk capillary refill in all extremities. 5.RESP: Unlabored respiratory effort. Clear to auscultation bilaterally. No wheezes rales or rhonchi 6.GI: Soft, Nontender/Nondistended, No hepatosplenomegaly. No guarding or rebound. Mild left epigastric tenderness which is notably minimal. No evidence of an acute surgical abdomen. Negative Owen sign, no pain at McBurney's point. 7.MSK: Normocephalic/Atraumatic, Extremities w/o deformity or ttp No cyanosis or clubbing, Normal movement of all extremities 8.Skin: Warm, Dry. No rashes or lesions. 9.Neuro: reflow operator II-XII grossly intact. Sensation grossly intact, no focal neurologic deficits. 10.Psych: (AAO) x3. Appropriate mood and affect Course Vital Signs Vital signs: Vital Signs Blood Pressure 130/81 03/08/21 19:47 Pulse Oximetry 100 03/08/21 19:47 Blood Pressure 130/81 03/08/21 19:47 Blood Pressure Position Sitting 10/03/21 19:47 Pulse Oximetry 100 03/08/21 19:47 Oxygen Delivery Method Room Air 03/08/21 19:47 Oxygen Flow Rate 0 03/08/21 19:47 Lab/Test Results Lab/Test Results: Laboratory Tests Range/Units 03/08/21 03/08/21 03/08/21 20:50 20:50 20:50 WBC Cancelled RBC Cancelled Hgb Cancelled Hct Cancelled MCV Cancelled MCH Cancelled MCHC Cancelled RDW Cancelled Plt Count Cancelled MPV Cancelled Immature Gran % Cancelled Neutrophils % Cancelled Band Neutrophils % Cancelled Lymphocytes % Cancelled Atypical Lymphs % Cancelled Monocytes % Cancelled Eosinophils % Cancelled Basophils % Cancelled Metamyelocytes % Cancelled Myelocytes % Cancelled Promyelocytes % Cancelled Other Cells % Cancelled Nucleated RBC % Cancelled Absolute Neutrophils Cancelled Absolute Lymphocytes Cancelled Absolute Monocytes Cancelled Absolute Eosinophils Cancelled Absolute Basophils Cancelled RBC Morphology Cancelled Polychromasia Cancelled Hypochromasia Cancelled Poikilocytosis Cancelled Basophilic Stippling Cancelled Anisocytosis Cancelled Microcytosis Cancelled Macrocytosis Cancelled Spherocytes Cancelled Tear Drop Cells Cancelled Ovalocytes Cancelled Stomatocytes Cancelled [place] Bodies Cancelled Tnea Cells/Echinocytes Cancelled Acanthocytes (Spur) Cancelled Schistocytes Cancelled VBG pH (7.31-7.41) 7.47 H VBG pCO2 (41-51) mmHg 41 VBG pO2 mmHg 49 VBG HCO3 (23-28) mmol/L 30 H VBG Total CO2 (24-29) mmol/L 27 VBG O2 Saturation % 87 VBG Base Excess (-2-3) mmol/L 7 H Sodium (136-145) mmol/L 137 Potassium (3.5-5.1) mmol/L 3.7 Chloride (98-107) mmol/L 98 Carbon Dioxide (21.0-32.0) mmol/L 29.6 Anion Gap (3-11) mmol/L 9.4 BUN (7-18) mg/dL 16 Creatinine (0.55-1.02) mg/dL 0.6 D Estimated GFR/1.73 m2 (mL/min/1.73m2) >= 60.00 Glucose (74-106) mg/dL 269 H Calcium (8.5-10.1) mg/dL 8.9 Total Bilirubin (0.2-1.0) mg/dL 0.6 AST (15-37) U/L 29 ALT (14-59) U/L 25 Alkaline Phosphatase (46-116) U/L 104 Total Protein (6.4-8.2) g/dL 7.3 Albumin (3.4-5.0) g/dL 3.6 Lipase (73-393) U/L 130
[2021-03-08 21:46] LABS: Abs Immature Grans 0.06 10^3/uL (0.0-0.06); Absolute Basophil Count 0.03 10^3/uL (0.0-0.2); Absolute Lymphocyte Count 2.71 10^3/uL (1.2-3.4); Absolute Monocyte Count 1.17 10^3/uL (0.1-0.8); Absolute Neutrophil Count 11.12 10^3/uL (1.2-6.7); Basophils % 0.2; Eosinophils % 0.3; HCT 37.2 % (36.0-46.0); Immature Grans % 0.4; Lymphocytes % 17.9; MCH 31.6 pg (27.0-33.0); MCHC 34.7 % (32.0-36.0); MCV 91.2 fL (80-95); MPV 9.6 fL (8.0-11.0); Monocytes % 7.7; Neutrophils % 73.5; Nucleated RBC 0 %; Platelet Count 364 10^3/uL (130-400); RBC 4.08 10^6/uL (3.93-5.22); RDW 12.4 % (11.7-14.6); RDW-SD 40.9 fL; WBC 15.13 10^3/uL (4.4-10.8)
[2021-03-08 21:47] LABS: Absolute Eosinophil Count 0.05 10^3/uL (0.0-0.7); HGB 12.9 g/dL (11.2-15.7)
--- NOTE | 2021-03-08 21:51 | W.PM.HP.N ---
Date of service: 03/08/21 Time of Service: 21:52 Assessment and Plan Assessment and plan (1) Vomiting: Status: Acute Assessment and plan: Episodic vomiting. Possibly related to cannabis, to gastroparesis, to catamenial migraine equivalent -- or exacerbated by current UTI. Will continue antibiotics, IVF and antiemetics. 1. Vomiting: IVF, prn Zofran or Reglan 2. DM (type 2): SS coverage 3. UTI: Rocephin, await culture History of Present Illness History of Present Illness Chief Complaint: vomiting Narrative: 35 female with h/o episodic vomiting, unclear etiology. Seen here earlier today with several days of vomiting, found to have UTI. Admission advised but declined. After IVF patient sent home on Keflex. Returns with persistent vomiting. No abd pain per se. In ER findings of note for leukocytosis (15), normal electrolytes, negative KUB. Given IVF, Zofran and Reglan. States she feels somewhat better. Is admitted for further management. Interestingly patient notes that at least her most recent episodes seem to correspond with her menstrual period. No BUSH. No h/o migraine. She also does smoke pot regularly. Review of Systems All systems reviewed & are unremarkable except as noted in HPI and below PFSH Medical History Anxiety and depression Diabetes Diabetic neuropathy Gastroparesis Suicide attempt Surgical History Amputation of left great toe H/O tubal ligation Family History Paternal Grandmother Heart disease Diabetes Maternal Aunt Hypertension Breast cancer maternal great aunt Maternal Grandfather Hypertension Maternal Grandmother Breast cancer Maternal Aunt No problems noted. Maternal Cousin Breast cancer Maternal Cousin Breast cancer Maternal Cousin Breast cancer Social History Smoking/Tobacco Use Status: Current every day Tobacco Type: cigarettes Smoking risk assessment performed?: Yes Alcohol Intake: never Drug use: Socially Substance use type: marijuana Do you feel safe at home: Yes Do you feel safe in your relationship?: Yes Meds Allergies and Home Medications Allergies Allergy/AdvReac Type Severity Reaction Status Date / Time ibuprofen [From Advil] Allergy Severe throat Unverified 03/08/21 13:40 closes Home Medications Medication Instructions Recorded Confirmed Type gabapentin 300 - 900 mg PO DIRECTED 01/24/21 03/08/21 History lorazepam 0.5 mg PO BID PRN 01/24/21 03/08/21 History metoclopramide HCl [Reglan] 5 mg PO PRN PRN 01/24/21 03/08/21 History sucralfate [Carafate] 1 g PO QACHS #7 tab 01/24/21 03/08/21 Rx Jardiance 10 mg PO DAILY 01/28/21 03/08/21 History insulin glargine 40 unit SUBCUT DAILY 01/28/21 03/08/21 History omeprazole 40 mg PO DAILY #60 cap 01/28/21 03/08/21 Rx cephalexin 500 mg PO BID 7 Days #14 tab 03/08/21 03/08/21 Rx potassium chloride 40 meq PO DAILY #10 tab 03/08/21 03/08/21 Rx promethazine 25 mg MN ONCE #12 ea 03/08/21 03/08/21 Rx Exam Narrative Exam Narrative: 130/81, 111, 36.8, 18, 100. HEENT atraumatic; neck supple; lungs cleare; heart tachy/regular; abdomen soft with minimal epigastric tenderness; extremities w/o edema; neuro Ox3, moves all 4s Results Labs Result diagrams: 03/08/21 21:37 03/08/21 20:50 Labs: Laboratory Results - last 24 hr 03/08/21 03/08/21 03/08/21 20:50 20:50 20:50 WBC Cancelled RBC Cancelled Hgb Cancelled Hct Cancelled MCV Cancelled MCH Cancelled MCHC Cancelled RDW Cancelled Plt Count Cancelled MPV Cancelled Immature Gran % Cancelled Neutrophils % Cancelled Band Neutrophils % Cancelled Lymphocytes % Cancelled Atypical Lymphs % Cancelled Monocytes % Cancelled Eosinophils % Cancelled Basophils % Cancelled Metamyelocytes % Cancelled Myelocytes % Cancelled Promyelocytes % Cancelled Other Cells % Cancelled Nucleated RBC % Cancelled Absolute Neutrophils Cancelled Absolute Lymphocytes Cancelled Absolute Monocytes Cancelled Absolute Eosinophils Cancelled Absolute Basophils Cancelled RBC Morphology Cancelled Polychromasia Cancelled Hypochromasia Cancelled Poikilocytosis Cancelled Basophilic Stippling Cancelled Anisocytosis Cancelled Microcytosis Cancelled Macrocytosis Cancelled Spherocytes Cancelled Tear Drop Cells Cancelled Ovalocytes Cancelled Stomatocytes Cancelled [place] Bodies Cancelled Tena Cells/Echinocytes Cancelled Acanthocytes (Spur) Cancelled Schistocytes Cancelled VBG pH 7.47 H VBG pCO2 41 VBG pO2 49 VBG HCO3 30 H VBG Total CO2 27 VBG O2 Saturation 87 VBG Base Excess 7 H Sodium 137 Potassium 3.7 Chloride 98 Carbon Dioxide 29.6 Anion Gap 9.4 BUN 16 Creatinine 0.6 D Estimated GFR/1.73 m2 >= 60.00 Glucose 269 H Calcium 8.9 Total Bilirubin 0.6 AST 29 ALT 25 Alkaline Phosphatase 104 Total Protein 7.3 Albumin 3.6 Lipase 130 03/08/21 21:37 WBC 15.13 H RBC 4.08 Hgb 12.9 D Hct 37.2 MCV 91.2 MCH 31.6 MCHC 34.7 RDW 12.4 Plt Count 364 MPV 9.6 Immature Gran % 0.4 Neutrophils % 73.5 Band Neutrophils % Lymphocytes % 17.9 Atypical Lymphs % Monocytes % 7.7 Eosinophils % 0.3 Basophils % 0.2 Metamyelocytes % Myelocytes % Promyelocytes % Other Cells % Nucleated RBC % 0 Absolute Neutrophils 11.12 H Absolute Lymphocytes 2.71 Absolute Monocytes 1.17 H Absolute Eosinophils 0.05 Absolute Basophils 0.03 RBC Morphology Polychromasia Hypochromasia Poikilocytosis Basophilic Stippling Anisocytosis Microcytosis Macrocytosis Spherocytes Tear Drop Cells Ovalocytes Stomatocytes [place] Bodies [place] Cells/Echinocytes Acanthocytes (Spur) Schistocytes VBG pH VBG pCO2 VBG pO2 VBG HCO3 VBG Total CO2 VBG O2 Saturation VBG Base Excess Sodium Potassium Chloride Carbon Dioxide Anion Gap BUN Creatinine Estimated GFR/1.73 m2 Glucose Calcium Total Bilirubin AST ALT Alkaline Phosphatase Total Protein Albumin Lipase Last Vital Signs BP 130/81 03/08/21 19:47 Pulse Ox 100 03/08/21 19:47
[2021-03-08 22:18] LABS: Source Nasal/Nares
[2021-03-08] MEDS: Metoclopramide 10 MG/2 ML VIAL IVP (22:35)
[2021-03-08] MEDS: cefTRIAXone 2 GM/50 ML BAG IVPB (22:37)
[2021-03-08 22:58] VITALS: BP 138/78; PULSE 91; RESP 16; TEMP 36.8; O2SAT 98
[2021-03-08 23:13] VITALS: BP 130/79; PULSE 74; RESP 18; TEMP 36.4; O2SAT 100
[2021-03-08] MEDS: Lactated Ringers 1,000 ML 150 ML IV (23:44)
[2021-03-09] MEDS: Insulin Aspart 300 UNITS/3 ML PEN SC ×3 (00:55→12:45)
[2021-03-09] MEDS: Ondansetron 4 MG/2 ML VIAL IVP (03:19)
[2021-03-09] MEDS: Metoclopramide 10 MG/2 ML VIAL IVP (05:41)
[2021-03-09] MEDS: Lactated Ringers 1,000 ML 150 ML IV (05:41)
[2021-03-09 06:55] LABS: HCT 37.1 % (36.0-46.0); HGB 12.8 g/dL (11.2-15.7); MCH 30.8 pg (27.0-33.0); MCHC 34.5 % (32.0-36.0); MCV 89.4 fL (80-95); MPV 10.9 fL (8.0-11.0); Platelet Count 198 10^3/uL (130-400); RBC 4.15 10^6/uL (3.93-5.22); RDW 12.2 % (11.7-14.6); RDW-SD 39.8 fL; WBC 14.73 10^3/uL (4.4-10.8)
[2021-03-09 07:01] LABS: Anion Gap 11.4 mmol/L (3-11); BUN 14 mg/dL (7-18); CO2 25.6 mmol/L (21.0-32.0); CREATININE 0.6 mg/dL (0.55-1.02); Calcium 8.4 mg/dL (8.5-10.1); Chloride 98 mmol/L (98-107); Glucose 256 mg/dL (74-106); Potassium 3.1 mmol/L (3.5-5.1); Sodium 135 mmol/L (136-145)
[2021-03-09 07:20] VITALS: BP 122/84; PULSE 99; RESP 18; TEMP 36.5; O2SAT 99
[2021-03-09 08:37] LABS: Magnesium 1.7 mg/dL (1.8-2.4)
[2021-03-09] MEDS: MAGNESIUM SULFATE 2 GM/50 ML BAG IVPB (09:10)
[2021-03-09 10:21] LABS: Hemoglobin A1C 8.9 % (<5.7)
--- NOTE | 2021-03-09 10:43 | INITIAL_ITS ---
- If Service Date Differs Date of service: 03/09/21 Time of Service: 10:43 Care Management Initial Assess REASON FOR HOSPITALIZATION:: Vomiting, UTI PAST MEDICAL HISTORY/PAST SURGICAL HISTORY:: Medical History. Anxiety and depression. Diabetes. Diabetic neuropathy. Gastroparesis. Suicide attempt. Surgical History. Amputation of left great toe. H/O tubal ligation PREVIOUS FUNCTIONAL STATUS/SOCIAL/FAMILY SUPPORTS:: Cristy recently moved from [place] to [place], [place] with her Fermin and 4 children (2 of which are foster children.) They now live in a large [facility] house with her mother in law. 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 Cristy is independent at baseline. CURRENT FUNCTIONAL STATUS:: Cristy was sleeping when CM attempted to meet with her. Per report, Cristy's symptoms were managed, and she was able to tolerate food, therefore she will be discharged today. Her will be picking her up. ADVANCE DIRECTIVES:: Not on file. CM will offer forms. Has patient been provided with info about the portal/API?: Yes Did the patient sign up for the portal?: No CODE STATUS:: Full Code INSURANCE COVERAGE / FINANCIAL ISSUES:: [employer] CURRENT HOME/COMMUNITY SERVICES/EQUIPMENT:: No current services or equipment. PRIMARY CARE PHYSICIAN:: Dr. Bird POTENTIAL DISCHARGE NEEDS:: Follow up appointments. PATIENT/FAMILY EDUCATION NEEDS:: Review discharge instructions, discussion of self care needs including ask me three. ANTICIPATED BARRIERS TO DISCHARGE:: None identified at this time. TRANSPORTATION:: Via private vehicle by family. PLAN:: Cristy will return home today, as she has been deemed medically cleared. Her will drive her home via private vehicle. She will follow up with her PCP and discharge plan of care. CM will continue to support discharge planning considerations.
[2021-03-09] MEDS: POTASSIUM CHLORIDE 20 MEQ/100 ML BAG 50 MEQ IVPB ×2 (10:44→12:45)
[2021-03-09] MEDS: Pantoprazole 40 MG VIAL IVP (11:43)
[2021-03-09 15:10] VITALS: BP 144/86; PULSE 101; RESP 18; TEMP 36.9; O2SAT 99
--- NOTE | 2021-03-09 15:15 | W.INDIABCONS ---
Date of service: 03/09/21 Time of Service: 15:16 Diabetes Inpatient Consult DESCRIPTION/ASSESSMENT: 35 year old female admitted with UTI with cannabinoid hyperemesis syndrome with DM, gastroparesis and obesity. Most recent A1C 8.9% indicating poorly controlled DM. Home DM meds include: glargine 40 units qd and 10 mg jardiance qd. Cristy reports blood sugars at home rarely go above 170 mg/dl, however, A1C indicates levels often > 200 mg/dl. Cristy used to have a mitul 2 continuous glucose monitor and is interested in using one again. Provided her with Dexcom 6 free sample, discharge orders to include additional sensors. INTERVENTION: Provided education on how to use Dexcom 6 CGM and encouraged her to follow up in outpatient setting, 10 days after discharge. reviewed carb counting and importance of optimal glycemic control PLAN: Will call Cristy 1 week after discharge. Time Spent in Nutritional Counseling and Treatment: 30
--- NOTE | 2021-03-09 15:21 | PHA.REVIEW ---
Pharmacy Admission Review - Admission Clinical Review (Last Reviewed 03/08/21 @ 21:56 by Broderick Mccray MD) UTI (urinary tract infection) (Acute) Vomiting (Acute) Vomiting (Acute) ibuprofen [From Advil] Allergy (Severe, Unverified 03/08/21 13:40) throat closes Resuscitation Status Full Code Height 5 ft 4 in Weight 90.718 kg - Renal Dosing Renal Dosing: BUN 14 mg/dL (7-18) 03/09/21 06:36 Creatinine 0.6 mg/dL (0.55-1.02) 03/09/21 06:36 Medications needing adjustments: Reviewed (Crcl ~142.8 mL/min using adjusted body weight. Current meds okay.) - Anticoagulation Anticoagulation: Hgb 12.8 g/dL (11.2-15.7) 03/09/21 06:36 Hct 37.1 % (36.0-46.0) 03/09/21 06:36 Plt Count 198 10^3/uL (130-400) D 03/09/21 06:36 Creatinine 0.6 mg/dL (0.55-1.02) 03/09/21 06:36 DVT Prophylaxis: N/A Therapeutic Anticoagulation: N/A - Opiate Usage Evaluate Pain Scale/Pains Meds: N/A - Relevant Labs Sodium 135 mmol/L (136-145) L 03/09/21 06:36 Potassium 3.1 mmol/L (3.5-5.1) L 03/09/21 06:36 Chloride 98 mmol/L (98-107) 03/09/21 06:36 Magnesium 1.7 mg/dL (1.8-2.4) L 03/09/21 06:36 Electrolytes, C-Reactive P, ESR: Reviewed (mag and K+ replacement ordered) - DM Control DM Control: Glucose 256 mg/dL (74-106) H 03/09/21 06:36 Hemoglobin A1c 8.9 % (<5.7) H 03/09/21 06:36 Finger Stick Blood Glucose 264 Finger Stick Blood Glucose 264 Finger Stick Blood Glucose 264 Insulin Dosing: Reviewed (Pt has sliding scale aspart ordered) - Heart Failure/ME EF%, RENAN's, B-Blockers, Diuretics: N/A - BP Control BP Control: Blood Pressure 122/84 If elevated: N/A - Qtc Review If Elevated: N/A - IV to PO Switch IV Medications: Reviewed - Home Meds Home Med List reviewed: Reviewed (It is recommended to avoid using promethazine and metoclopramide together due to increased risk of adverse/toxic effects (such as extrapyramidal reactions or neuroleptic malignant syndrome). Promethazine may increase the ulcerogenic effect of solid potassium dosage forms; consider alternative form.) Relevent Home Meds Not ordered & why?: cephalexin (has other abx ordered), gabapentin, insulin glargine, jardiance, omeprazole, potassium chloride (got IV dose this morning), promethazine (has other antiemetics ordered), sucralfate. - Current meds Current Medication Order Review: Reviewed - Comments Comments/Follow Ups: Watch VS, BG, mag, K+, labs, for culture results and for med changes. Antibiotic Activity - Pharmacy Antibiotic Review Pharmacy Antibiotic Activity: C/S review (Urine culture from 03/08 growing gram negative rods. Ceftriaxone continues (day 2 starts this evening))
[2021-03-09 15:41] LABS: COVID-19 PCR Negative (Negative)
--- NOTE | 2021-03-09 16:10 | DSE_ITS ---
Date of service: 03/09/21 Time of Service: 16:10 DS: Diagnosis Discharge Diagnosis (1) Vomiting: Status: Acute Discharge Plan Disposition Patient Disposition: HOME Condition: Stable Discharge Details Reason For Visit: Vomiting, UTI Admit Date/Time: 03/08/21 22:01 Admit Provider: Broderick Mccray Attending Provider: Broderick Mccray Primary Care Provider: Unknown,Unknown Hospital Course Hospital Course: diabetic patient with history of gastroparesis and cannabinoid use presents with intractable nausea and vomiting for second time to ED for evaluation. she had received IV fluids and emetics earlier in day and was improved and discharged home only to return several hours later with same symptoms. she was given IV fluids again and antiemetics and referred to observation for symptom management. overnight symtpoms improved. in am she was c/o epigastric burning that radiated up her esophagus consistent with history of heartburn. she was given IV pantoprazole and GI cocktail with resolution of those symptoms. Her diet was advanced and she felt well enough for discharge to home. she will continue taking pantoprazole and will f/u with GI specialist at [facility] that was previously scheduled for early April. She is discharged home with no services. discharge discussed with Dr Davis [place] Meds and New Rx's Prescriptions: New pantoprazole [Protonix] 40 mg tablet,delayed release (DR/EC) 40 mg PO DAILY Qty: 30 RF: 0 Continued gabapentin 300 mg Tablet 300 - 900 mg PO DIRECTED RF: 0 lorazepam 0.5 mg Tablet 0.5 mg PO BID PRNRF: 0 metoclopramide HCl [Reglan] 5 mg Tablet 5 mg PO PRN PRNRF: 0 sucralfate [Carafate] 1 gram tablet 1 g PO QACHS Qty: 7 RF: 0 insulin glargine 100 unit/mL Cartridge 40 unit SUBCUT DAILY RF: 0 Jardiance 10 mg Tablet 10 mg PO DAILY RF: 0 omeprazole 20 mg capsule,delayed release(DR/EC) 40 mg PO DAILY Qty: 60 RF: 0 promethazine 25 mg suppository [address] ONCE Qty: 12 RF: 0 potassium chloride 20 mEq tablet extended release 40 meq PO DAILY Qty: 10 RF: 0 Discontinued cephalexin 500 mg tablet 500 mg PO BID 7 Days Qty: 14 RF: 0 Discharge Instructions Instructions: Acute Nausea and Vomiting (DC) Stand Alone Forms: Nursing Discharge Form Referrals: Unknown,Unknown [Primary Care Provider] - (keep scheduled appointment with GI at [facility] for this April as scheduled.) Activity:: Activity as Tolerated Equipment/Supplies:: No Equipment Needed Diet:: As Tolerated Discharge Orders Discharge Orders: Discharge Order (Routine); Ordered 03/09/21 Ordered By: Rosa Rm DS: Summary Time Spent with Patient providing and/or coordinating discharge services: Less than 30 minutes Status at Discharge Functional status at discharge: independent ambulation Overall status at discharge: patient is progressing back to baseline Mental Status: mental status grossly normal Speech and Movement: speech and movement normal Mood: congruent mood Affect: normal affect Exam Const General: cooperative, comfortable and no acute distress Nutritional Appearance: overweight Orientation: alert, awake and oriented x3 HENMT Head: normal to inspection, normocephalic and atraumatic Mouth: oral mucosae normal Resp Effort & Inspection: normal respiratory effort Cardio Rate: regular rate Rhythm: regular rhythm GI Inspection: normal to inspection Palpation: soft and tender in the epigastrum Auscultation: normal bowel sounds Skin General skin exam: no rashes or lesions noted Neuro General: patient alert, patient awake and patient oriented x3 Extrem General: normal to inspection and full ROM Psych Appearance: grossly normal Mental Status: mental status grossly normal Speech and Movement: speech and movement normal Mood: congruent mood Affect: normal affect Attitude: cooperative Thought Process: normal Thought Content: normal Insight: insight good Judgment: judgment good DS: Data Vitals/I&O Vitals and I&O: Vital Signs Temperature 36.5 C 03/09/21 07:20 Temperature Source Tympanic 03/09/21 07:20 Pulse 99 H 03/09/21 07:20 Pulse Rhythm Regular 03/09/21 09:30 Respiratory Rate 18 03/09/21 07:20 Respiratory Effort Non-Labored 03/09/21 09:30 Respiratory Depth Normal 03/09/21 09:30 Respiratory Pattern Normal 03/09/21 09:30 Blood Pressure 122/84 03/09/21 07:20 Blood Pressure Position Sitting 03/08/21 19:47 Pulse Oximetry 99 03/09/21 07:20 Oxygen Delivery Method Room Air 03/09/21 07:20 Oxygen Flow Rate 0 03/09/21 07:20 Pain Level 0 03/09/21 07:20 Intake & Output 03/08/21 03/09/2121 23:59 11:59 23:59 Intake Total 1050 / 1050 892.5 / 1407.5 515 / 1407.5 Output Total 1400 / 1400 Balance 1050 / 1050 -507.5 / 7.5 515 / 7.5 Weight 90.718 kg Intake: IV 1050 / 1050 892.5 / 992.5 100 / 992.5 Oral 415 / 415 Output: Urine 200 / 200 Emesis 1200 / 1200 Other: Urine Color Yellow Urine Appearance Cloudy Urine Odor Normal Comment pT voids independent in toilet Stool Characteristics Liquid Emesis Description Retching Clear/Water Bile Mucous Voiding Methods Toilet Data Completed and Pending Labs on day of discharge: Labs from last 24 hours 03/09/21 03/09/21 03/09/21 06:36 06:36 06:36 WBC 14.73 H RBC 4.15 Hgb 12.8 Hct 37.1 MCV 89.4 MCH 30.8 MCHC 34.5 RDW 12.2 Plt Count 198 D MPV 10.9 Immature Gran % Neutrophils % Band Neutrophils % Lymphocytes % Atypical Lymphs % Monocytes % Eosinophils % Basophils % Metamyelocytes % Myelocytes % Promyelocytes % Other Cells % Nucleated RBC % Absolute Neutrophils Absolute Lymphocytes Absolute Monocytes Absolute Eosinophils Absolute Basophils RBC Morphology Polychromasia Hypochromasia Poikilocytosis Basophilic Stippling Anisocytosis Microcytosis Macrocytosis Spherocytes Tear Drop Cells Ovalocytes Stomatocytes [place] Bodies Tena Cells/Echinocytes Acanthocytes (Spur) Schistocytes VBG pH VBG pCO2 VBG pO2 VBG HCO3 VBG Total CO2 VBG O2 Saturation VBG Base Excess Sodium 135 L Potassium 3.1 L Chloride 98 Carbon Dioxide 25.6 Anion Gap 11.4 H BUN 14 Creatinine 0.6 Estimated GFR/1.73 m2 >= 60.00 Glucose 256 H Hemoglobin A1c 8.9 H Calcium 8.4 L Magnesium 1.7 L Total Bilirubin AST ALT Alkaline Phosphatase Total Protein Albumin Lipase COVID-19 Source SARS-CoV-2 (PCR) 03/08/21 03/08/21 03/08/21 22:15 21:37 20:50 WBC 15.13 H RBC 4.08 Hgb 12.9 D Hct 37.2 MCV 91.2 MCH 31.6 MCHC 34.7 RDW 12.4 Plt Count 364 MPV 9.6 Immature Gran % 0.4 Neutrophils % 73.5 Band Neutrophils % Lymphocytes % 17.9 Atypical Lymphs % Monocytes % 7.7 Eosinophils % 0.3 Basophils % 0.2 Metamyelocytes % Myelocytes % Promyelocytes % Other Cells % Nucleated RBC % 0 Absolute Neutrophils 11.12 H Absolute Lymphocytes 2.71 Absolute Monocytes 1.17 H Absolute Eosinophils 0.05 Absolute Basophils 0.03 RBC Morphology Polychromasia Hypochromasia Poikilocytosis Basophilic Stippling Anisocytosis Microcytosis Macrocytosis Spherocytes Tear Drop Cells Ovalocytes Stomatocytes [place] Bodies Tena Cells/Echinocytes Acanthocytes (Spur) Schistocytes VBG pH 7.47 H VBG pCO2 41 VBG pO2 49 VBG HCO3 30 H VBG Total CO2 27 VBG O2 Saturation 87 VBG Base Excess 7 H Sodium Potassium Chloride Carbon Dioxide Anion Gap BUN Creatinine Estimated GFR/1.73 m2 Glucose Hemoglobin A1c Calcium Magnesium Total Bilirubin AST ALT Alkaline Phosphatase Total Protein Albumin Lipase COVID-19 Source Nasal/Nares SARS-CoV-2 (PCR) Negative 03/08/21 03/08/21 20:50 20:50 WBC Cancelled RBC Cancelled Hgb Cancelled Hct Cancelled MCV Cancelled MCH Cancelled MCHC Cancelled RDW Cancelled Plt Count Cancelled MPV Cancelled Immature Gran % Cancelled Neutrophils % Cancelled Band Neutrophils % Cancelled Lymphocytes % Cancelled Atypical Lymphs % Cancelled Monocytes % Cancelled Eosinophils % Cancelled Basophils % Cancelled Metamyelocytes % Cancelled Myelocytes % Cancelled Promyelocytes % Cancelled Other Cells % Cancelled Nucleated RBC % Cancelled Absolute Neutrophils Cancelled Absolute Lymphocytes Cancelled Absolute Monocytes Cancelled Absolute Eosinophils Cancelled Absolute Basophils Cancelled RBC Morphology Cancelled Polychromasia Cancelled Hypochromasia Cancelled Poikilocytosis Cancelled Basophilic Stippling Cancelled Anisocytosis Cancelled Microcytosis Cancelled Macrocytosis Cancelled Spherocytes Cancelled Tear Drop Cells Cancelled Ovalocytes Cancelled Stomatocytes Cancelled [place] Bodies Cancelled [place] Cells/Echinocytes Cancelled Acanthocytes (Spur) Cancelled Schistocytes Cancelled VBG pH VBG pCO2 VBG pO2 VBG HCO3 VBG Total CO2 VBG O2 Saturation VBG Base Excess Sodium 137 Potassium 3.7 Chloride 98 Carbon Dioxide 29.6 Anion Gap 9.4 BUN 16 Creatinine 0.6 D Estimated GFR/1.73 m2 >= 60.00 Glucose 269 H Hemoglobin A1c Calcium 8.9 Magnesium Total Bilirubin 0.6 AST 29 ALT 25 Alkaline Phosphatase 104 Total Protein 7.3 Albumin 3.6 Lipase 130 COVID-19 Source SARS-CoV-2 (PCR) [facility] Medical History Anxiety and depression Diabetes Diabetic neuropathy Gastroparesis Suicide attempt Surgical History Amputation of left great toe H/O tubal ligation Family History Paternal Grandmother Heart disease Diabetes Maternal Aunt Hypertension Breast cancer maternal great aunt Maternal Grandfather Hypertension Maternal Grandmother Breast cancer Maternal Aunt No problems noted. Maternal Cousin Breast cancer Maternal Cousin Breast cancer Maternal Cousin Breast cancer Social History Smoking/Tobacco Use Status: Current every day Tobacco Type: cigarettes Smoking risk assessment performed?: Yes Alcohol Intake: never Drug use: Socially Substance use type: marijuana Do you feel safe at home: Yes Do you feel safe in your relationship?: Yes
== END 2021-03-09 17:44 | disposition home or self-care (01) ==
LOC: ER 22:15 → MS 23:11
PROVIDERS: Admitting Provider General Practice; Emergency Provider Student in an Organized Health Care Education/Training Program; Visit Provider General Practice
DX: R11.10 Vomiting, unspecified (principal); N39.0 Urinary tract infection, site not specified; F12.90 Cannabis use, unspecified, uncomplicated; F41.8 Other specified anxiety disorders; E11.42 Type 2 diabetes mellitus with diabetic polyneuropathy; E11.43 Type 2 diabetes mellitus with diabetic autonomic (poly)neuropathy; K31.84 Gastroparesis; F17.210 Nicotine dependence, cigarettes, uncomplicated
CPT/HCPCS: 36415; 80048; 80053; 82805; 83690; 85027; 87635; 90686; 96361; 96365; 96375; 99285; 74019; 83036; 83735; 85025; 99217; 99219; G0378; J2405; J2765; J3480

== ENCOUNTER 2021-06-06 10:17 | Emergency (ER) | payer MEDICAID, SELFPAY ==
[2021-06-06 10:35] VITALS: BP 136/101; PULSE 111; RESP 20; TEMP 36.4; O2SAT 98
--- NOTE | 2021-06-06 10:53 | ED.GENADUL_ITS ---
Discharge Plan Disposition Patient Disposition: HOME Condition: Stable Discharge Details Clinical Impression: Gastroparesis, Nausea and vomiting Primary Care Provider: Unknown,Unknown ED Provider: Katiana Adams Home Meds and New Rx's Prescriptions: New ondansetron 4 mg tablet,disintegrating 4 mg PO Q8H PRN (Reason: nausea and vomiting) 5 Days Qty: 15 RF: 0 No Action gabapentin 300 mg Tablet 300 - 900 mg PO DIRECTED RF: 0 lorazepam 0.5 mg Tablet 0.5 mg PO BID PRNRF: 0 metoclopramide HCl [Reglan] 5 mg Tablet 5 mg PO PRN PRNRF: 0 insulin glargine 100 unit/mL Cartridge 40 unit SUBCUT DAILY RF: 0 Jardiance 10 mg Tablet 10 mg PO DAILY RF: 0 omeprazole 20 mg capsule,delayed release(DR/EC) 40 mg PO DAILY Qty: 60 RF: 0 promethazine 25 mg suppository 25 mg AK ONCE Qty: 12 RF: 0 Discharge Instructions Instructions: Acute Nausea and Vomiting (ED) Additional Instructions: Follow up with primary care provider in 3-5 days. Return to ED sooner if any worsening or concerns. Increase oral fluids. Take the nausea medication 20 to 30 minutes prior to eating or drinking anything. Small frequent meals. Try kirsten and or lemon. Discharge Data Discharge Date/Time-TO BE ENTERED AT DEPARTURE: 06/06/21 13:27 Medical Decision Making 36-year-old female presents to the ER with nausea vomiting for the last 2 days. She does have a history of gastroparesis and insulin-dependent diabetes is unable to keep anything down for the last 2 days. She is complaining of some increased acid production. She has had 2 present multiple times to the ER for this intractable vomiting. She reports that she is unable to hold down her home nausea medications. Denies any diarrhea or any other associated symptoms. She is fully vaccinated for Covid. She denies any abdominal pain. CBC shows WBC count of 17.44, Plt 426 1204: Patient reevaluation, reports that nausea slowly getting better. IV is infusing without difficulty. Has received 4 mg of Zofran and 20 mg Pepcid. Will order Reglan. 1245: Patient re-evaluation, reports feeling much better, tolerated PO challenge without vomiting. Requests to be discharged home. Give Zofran ODT to go and discussed follow up and strict return instructions. Lab Data Lab results reviewed: Yes I reviewed the patient's lab results. Lab results narrative: Laboratory Tests Range/Units 06/06/21 06/06/21 06/06/21 10:55 10:55 11:08 WBC Cancelled RBC Cancelled Hgb Cancelled Hct Cancelled MCV Cancelled MCH Cancelled MCHC Cancelled RDW Cancelled Plt Count Cancelled MPV Cancelled Immature Gran % Cancelled Neutrophils % Cancelled Band Neutrophils % Cancelled Lymphocytes % Cancelled Atypical Lymphs % Cancelled Monocytes % Cancelled Eosinophils % Cancelled Basophils % Cancelled Metamyelocytes % Cancelled Myelocytes % Cancelled Promyelocytes % Cancelled Other Cells % Cancelled Nucleated RBC % Cancelled Absolute Neutrophils Cancelled Absolute Lymphocytes Cancelled Absolute Monocytes Cancelled Absolute Eosinophils Cancelled Absolute Basophils Cancelled RBC Morphology Cancelled Polychromasia Cancelled Hypochromasia Cancelled Poikilocytosis Cancelled Basophilic Stippling Cancelled Anisocytosis Cancelled Microcytosis Cancelled Macrocytosis Cancelled Spherocytes Cancelled Tear Drop Cells Cancelled Ovalocytes Cancelled Stomatocytes Cancelled [place] Bodies Cancelled [place] Cells/Echinocytes Cancelled Acanthocytes (Spur) Cancelled Schistocytes Cancelled Sodium Cancelled Potassium Cancelled Chloride Cancelled Carbon Dioxide Cancelled Anion Gap Cancelled BUN Cancelled Creatinine Cancelled Estimated GFR/1.73 m2 Cancelled Glucose Cancelled Calcium Cancelled Magnesium Cancelled Total Bilirubin Cancelled AST Cancelled ALT Cancelled Alkaline Phosphatase Cancelled Total Protein Cancelled Albumin Cancelled Urine Color (Yellow) Yellow Urine Clarity (Clear) Sl Cloudy Urine pH (5-8) 5.5 Ur Specific [place] (1.005-1.025) >= 1.030 H Urine Protein (Negative) mg/dL 30 H Urine Ketones (Negative) mg/dL >=160 H Urine Blood (Negative) Negative Urine Nitrite (Negative) Negative Urine Bilirubin (Negative) Moderate H Urine Urobilinogen (Up TO 0.2) EU/dL 0.2 Ur Leukocyte Esterase (Negative) Negative Urine RBC (0-2) HPF 0-2 Urine WBC (0-5) HPF 0-2 Ur Epithelial Cells (Negative) HPF Moderate Urine Crystals (Negative) HPF Few Amorphous Urine Bacteria (Negative) HPF Few Urine Casts (Negative) LPF 0-2 Hyaline Urine Mucus (Negative) Moderate Ur Culture Indicated? No/Sq. Contamination Urine Glucose (Negative) mg/dL 500 H Range/Units 06/06/21 06/06/21 11:15 11:15 WBC 17.44 H RBC 5.12 Hgb 15.7 Hct 45.0 MCV 87.9 MCH 30.7 MCHC 34.9 RDW 11.7 Plt Count 426 H MPV 9.4 Immature Gran % 0.5 Neutrophils % 67.6 Band Neutrophils % Lymphocytes % 21.0 Atypical Lymphs % Monocytes % 10.4 Eosinophils % 0.2 Basophils % 0.3 Metamyelocytes % Myelocytes % Promyelocytes % Other Cells % Nucleated RBC % 0 Absolute Neutrophils 11.79 H Absolute Lymphocytes 3.66 H Absolute Monocytes 1.81 H Absolute Eosinophils 0.03 Absolute Basophils 0.05 RBC Morphology Normal Polychromasia Hypochromasia Poikilocytosis Basophilic Stippling Anisocytosis Microcytosis Macrocytosis Spherocytes Tear Drop Cells Ovalocytes Stomatocytes [place] Bodies Tena Cells/Echinocytes Acanthocytes (Spur) Schistocytes Sodium 130 L Potassium 3.2 L Chloride 90 L Carbon Dioxide 31.3 Anion Gap 8.7 BUN 18 Creatinine 0.9 Estimated GFR/1.73 m2 >= 60.00 Glucose 318 H Calcium 9.4 Magnesium 1.9 Total Bilirubin 0.7 AST 17 ALT 23 Alkaline Phosphatase 112 Total Protein 8.2 Albumin 4.0 Urine Color (Yellow) Urine Clarity (Clear) Urine pH (5-8) Ur Specific [place] (1.005-1.025) Urine Protein (Negative) mg/dL Urine Ketones (Negative) mg/dL Urine Blood (Negative) Urine Nitrite (Negative) Urine Bilirubin (Negative) Urine Urobilinogen (Up TO 0.2) EU/dL Ur Leukocyte Esterase (Negative) Urine RBC (0-2) HPF Urine WBC (0-5) HPF Ur Epithelial Cells (Negative) HPF Urine Crystals (Negative) HPF Urine Bacteria (Negative) HPF Urine Casts (Negative) LPF Urine Mucus (Negative) Ur Culture Indicated? Urine Glucose (Negative) mg/dL HPI General Mode of arrival: ambulatory . Date/Time Provider Initiated Documentation: 06/06/21 10:46 . Limitations to Documentation: no limitations . Information obtained by: patient, RN notes reviewed and old records reviewed . HPI Narrative: 36-year-old female presents to the ER with nausea vomiting for the last 2 days. She does have a history of gastroparesis and insulin-dependent diabetes is unable to keep anything down for the last 2 days. She is complaining of some increased acid production. She has had 2 present multiple times to the ER for this intractable vomiting. She reports that she is unable to hold down her home nausea medications. Denies any diarrhea or any other associated symptoms. She is fully vaccinated for Covid. She denies any abdominal pain. Related Data Home Medications Medication Instructions Recorded Confirmed gabapentin 300 - 900 mg PO DIRECTED 01/24/21 03/08/21 lorazepam 0.5 mg PO BID PRN 01/24/21 06/06/21 metoclopramide HCl [Reglan] 5 mg PO PRN PRN 01/24/21 06/06/21 Jardiance 10 mg PO DAILY 01/28/21 06/06/21 insulin glargine 40 unit SUBCUT DAILY 01/28/21 06/06/21 omeprazole 40 mg PO DAILY #60 cap 01/28/21 06/06/21 promethazine 25 mg AK ONCE #12 ea 03/08/21 06/06/21 ondansetron 4 mg PO Q8H PRN 5 Days #15 tab 06/06/21 Previous Rx's Medication Instructions Recorded omeprazole 40 mg PO DAILY #60 cap 01/28/21 promethazine 25 mg AK ONCE #12 ea 03/08/21 ondansetron 4 mg PO Q8H PRN 5 Days #15 tab 06/06/21 Allergies Allergy/AdvReac Type Severity Reaction Status Date / Time ibuprofen [From Advil] Allergy Severe throat Unverified 06/06/21 10:37 closes General Stated Complaint: Nausea/Vomit/Diar ARNOLD: 3 Review of Systems All systems reviewed & are unremarkable except as noted in HPI and below Gastrointestinal Gastrointestinal: Denies abdominal pain, Reports nausea and Reports vomiting PFSH All Active Problems (Updated 06/06/21 @ 13:15 by Katiana Adams) UTI (urinary tract infection) (Acute) Gastroparesis (Chronic) Upper GI bleeding (Acute) Discharge planning issues (Acute) DVT prophylaxis (Acute) Cannabinoid hyperemesis syndrome (Acute) Tobacco abuse (Acute) IDDM (insulin dependent diabetes mellitus) (Chronic) Nausea and vomiting (Acute) Vomiting (Acute) Vomiting (Acute) Acute dehydration (Acute) Medical History Anxiety and depression Diabetes Diabetic neuropathy Suicide attempt Surgical History Amputation of left great toe H/O tubal ligation Family History Paternal Grandmother Heart disease Diabetes Maternal Aunt Hypertension Breast cancer maternal great aunt Maternal Grandfather Hypertension Maternal Grandmother Breast cancer Maternal Aunt No problems noted. Maternal Cousin Breast cancer Maternal Cousin Breast cancer Maternal Cousin Breast cancer Social History Smoking/Tobacco Use Status: Current every day Tobacco Type: cigarettes Smoking risk assessment performed?: Yes Alcohol Intake: never Drug use: Socially Substance use type: marijuana Do you feel safe at home: Yes Do you feel safe in your relationship?: Yes Exam Narrative Exam Narrative: Constitutional: Alert and oriented x3. Appears stated age. Normal body habitus. Head: Normocephalic, no trauma. Eyes: Pupils PERRL, Red reflex noted, EOM's intact. Eyelids symmetrical without lesions, discharge, or swelling. ENT: Bilateral TM's WNL, External ear normal to inspection, no mastoid TTP, swelling, or erythema, Nasal turbinates WNL, no nasal discharge. Normal dentition, Posterior pharynx WNL, no exudate. Chest: RRR, Normal S1, S2, distal pulses intact. Resp: Lungs clear to auscultation bilaterally, no wheezes, rales, or rhonchi. Abdomen: Soft, non-distended, Normoactive bowel sounds all 4 quads. Musculoskeletal: Normal gait, 5/5 strength to all four extremities. Skin: No suspicious rashes or lesions. Capillary refill less than 2 sec. Neurologic: Cranial nerves II-XII intact. Alert and oriented x 3. Motor: No deficits noted. Sensory: Intact bilaterally all 4 extremities. Reflexes: DTR's intact bilaterally.. Hematologic/Lymphatic: No ecchymosis, no lymphadenopathy. Course Vital Signs Vital signs: Vital Signs Temperature 36.4 C L 06/06/21 10:35 Pulse 111 H 06/06/21 10:35 Respiratory Rate 20 06/06/21 10:35 Blood Pressure 136/101 H 06/06/21 10:35 Pulse Oximetry 98 06/06/21 10:35 Temperature 36.4 C L 06/06/21 10:35 Temperature Source Temporal Artery Scan 06/06/21 10:35 Pulse 111 H 06/06/21 10:35 Respiratory Rate 20 06/06/21 10:35 Blood Pressure 136/101 H 06/06/21 10:35 Blood Pressure Position Sitting 06/06/21 10:35 Pulse Oximetry 98 06/06/21 10:35 Oxygen Delivery Method Room Air 06/06/21 10:35 Oxygen Flow Rate 0 06/06/21 10:35 Pain Level 0 06/06/21 10:35
[2021-06-06] MEDS: Normal Saline 1,000 ML 1000 ML IV (10:58)
[2021-06-06] MEDS: Ondansetron 4 MG/2 ML VIAL IVP (10:59)
[2021-06-06] MEDS: FAMOTIDINE 20 MG/50 ML BAG 200 MG IVPB (11:14)
[2021-06-06 11:17] LABS: Bilirubin Moderate (Negative); Blood Negative (Negative); Clarity Sl Cloudy (Clear); Glucose 500 mg/dL (Negative); Ketones >=160 mg/dL (Negative); Leukocyte Esterase Negative (Negative); Nitrite Negative (Negative); Specific Gravity >= 1.030 (1.005-1.025); Urobilinogen 0.2 EU/dL (Up TO 0.2); pH 5.5 (5-8)
[2021-06-06 11:23] LABS: Abs Immature Grans 0.08 10^3/uL (0.0-0.06); Absolute Eosinophil Count 0.03 10^3/uL (0.0-0.7); Absolute Monocyte Count 1.81 10^3/uL (0.1-0.8); Absolute Neutrophil Count 11.79 10^3/uL (1.2-6.7); Basophils % 0.3; Eosinophils % 0.2; HGB 15.7 g/dL (11.2-15.7); Immature Grans % 0.5; MCH 30.7 pg (27.0-33.0); MCHC 34.9 % (32.0-36.0); MCV 87.9 fL (80-95); MPV 9.4 fL (8.0-11.0); Monocytes % 10.4; Neutrophils % 67.6; Nucleated RBC 0 %; RBC 5.12 10^6/uL (3.93-5.22); RDW 11.7 % (11.7-14.6); RDW-SD 37.8 fL; WBC 17.44 10^3/uL (4.4-10.8)
[2021-06-06 11:26] LABS: Absolute Basophil Count 0.05 10^3/uL (0.0-0.2); Absolute Lymphocyte Count 3.66 10^3/uL (1.2-3.4)
[2021-06-06 11:28] LABS: Bacteria Few HPF (Negative); Casts 0-2 Hyaline LPF (Negative); Crystals Few Amorphous HPF (Negative); Epithelial Cells Moderate HPF (Negative); Mucus Moderate (Negative); RBC 0-2 HPF (0-2); WBC 0-2 HPF (0-5)
[2021-06-06 11:29] LABS: C & S Indicated? No/Sq. Contamination
[2021-06-06 11:32] LABS: ALT 23 U/L (14-59); AST 17 U/L (15-37); Alkaline Phosphatase 112 U/L (46-116); Anion Gap 8.7 mmol/L (3-11); BUN 18 mg/dL (7-18); Bilirubin, Total 0.7 mg/dL (0.2-1.0); CO2 31.3 mmol/L (21.0-32.0); CREATININE 0.9 mg/dL (0.55-1.02); Calcium 9.4 mg/dL (8.5-10.1); Chloride 90 mmol/L (98-107); Glucose 318 mg/dL (74-106); Magnesium 1.9 mg/dL (1.8-2.4); Potassium 3.2 mmol/L (3.5-5.1); Sodium 130 mmol/L (136-145); Total Protein 8.2 g/dL (6.4-8.2)
[2021-06-06 11:42] LABS: Diff Comment Agrees w/ Instrument; Platelet Count 426 10^3/uL (130-400); RBC Morphology Normal
[2021-06-06] MEDS: Metoclopramide 10 MG/2 ML VIAL IVP (12:10)
[2021-06-06 13:36] VITALS: BP 128/86; PULSE 90; RESP 17; TEMP 36.4; O2SAT 98
[2021-06-06] MEDS: Ondansetron O.D.T. 4 MG TABEF, 3 TABS/BTL PO (13:39)
== END 2021-06-06 13:27 | disposition home or self-care (01) ==
PROVIDERS: Emergency Provider Registered Nurse Emergency
DX: E11.43 Type 2 diabetes mellitus with diabetic autonomic (poly)neuropathy (principal); K31.84 Gastroparesis; Z79.4 Long term (current) use of insulin; R11.2 Nausea with vomiting, unspecified
CPT/HCPCS: 36415; 80053; 81025; 96361; 96374; 96375; 99284; 81003; 81015; 83735; 85025; 99283; J2405; J2765

== ENCOUNTER 2021-09-12 14:00 | Emergency (ER) | payer MEDICAID, SELFPAY ==
[2021-09-12 14:08] VITALS: BP 119/82; PULSE 110; RESP 18; TEMP 36.7; O2SAT 99
--- NOTE | 2021-09-12 14:22 | ED.GENADUL_ITS ---
Discharge Plan Disposition Patient Disposition: HOME Condition: Stable Discharge Details Clinical Impression: Diabetic ulcer of right great toe Primary Care Provider: Unknown,Unknown ED Provider: Katiana Adams Home Meds and New Rx's Prescriptions: New levofloxacin 750 mg tablet 750 mg PO DAILY 7 Days Qty: 7 0RF Rx Instructions: Take with Food Continued gabapentin 300 mg Tablet 300 - 900 mg PO DIRECTED 0RF Rx Instructions: 300 qam 900 hs lorazepam 0.5 mg Tablet 0.5 mg PO BID PRN0RF metoclopramide HCl [Reglan] 5 mg Tablet 5 mg PO DAILY 0RF insulin glargine 100 unit/mL Cartridge 40 unit SUBCUT DAILY 0RF Jardiance 10 mg Tablet 10 mg PO DAILY 0RF omeprazole 20 mg capsule,delayed release(DR/EC) 40 mg PO DAILY Qty: 60 0RF promethazine 25 mg suppository 25 mg SC ONCE Qty: 12 0RF Rx Instructions: may repeat once in 12 hours tramadol 50 mg tablet 50 mg PO PRN PRN0RF Label Comments: TAKE 1 TABLET BY MOUTH EVERY 6 HOURS NEEDED FOR PAIN - DAILY MAX 4 TABLETS (200MG) Discharge Instructions Instructions: Cellulitis (ED), Diabetic Foot Ulcers (ED) Additional Instructions: At this time there is no evidence on the x-rays for bone infection however please discuss obtaining an MRI for further evaluation with your senior technical analyst. Please call your senior technical analyst on Tuesday morning. I did have the x-ray images pushed to [facility]. Please keep clean and dry. Please keep off the foot as much as possible until you are seen by podiatry. Give the antibiotics 3 days. If after 3 days the redness spread or there is any worsening you need to be seen right away. Take the antibiotics once daily as directed for the next 7 days. You were given the first dose here in the department. Follow up with primary care provider/ Cable Assembler in 3-5 days. Return to ED sooner if any worsening or concerns. Increase oral fluids. Please take Tylenol with food every 4-6 hours as needed for pain and swelling. Stand Alone Forms: Work Release Referrals: Elza Navarro [ [facility] STAFF PHYSICIAN] - 3 days (Call Cable Assembler ) Medical Decision Making 36-year-old female with a past medical history of diabetic neuropathy, diabetes, anxiety depression, suicide attempt, amputation of left great toe and history of tubal ligation presents to the ER with chief complaint of right great big toe ulcer which she noted yesterday. Per the he cleaned it today with hydrogen peroxide and dressing and noted that it is draining. Patient has a history of a left great toe amputation approximately 1 year ago. She has not been on antibiotics in the last few months. She does see senior technical analyst in [facility] for stone. She reports that she is able to get in with them within the next week if needed. She denies any fever nausea vomiting diarrhea. Please see physical exam and diagram. 1450: Call made to [facility] transfer center to consult with podiatry if possible. Have images pushed to [facility]. Levofloxacin 750 mg ordered p.o. Received call back from the transfer center they do not have any provider transactional paralegal at this point for podiatry. X-rays show no evidence for osteomyelitis however due to patient's history MRI would be a modality of choice to rule out osteomyelitis. I did discuss follow-up with patient regarding x-ray results recommendation for MRI in the near future. Patient was placed on levofloxacin 750 mg p.o. daily x7 days first dose given here in the ER. Discussed home care, erythema was marked, discussed keeping leg elevated, clean and dry. Instructed patient to stay off the foot as possible. Patient reports she should be continuing with her senior technical analyst. I do recommend that she be seen in the next 3 to 5 days. This text was generated using [employer] dictation system, please disregard any oddities of phrase or misspellings. Medical Records Medical records reviewed: Yes I reviewed the patient's medical records. Imaging Data Radiologic Study: Imaging: X-Ray Radiologist's impression: EXAM: XR FOOT RT COMPLETE CLINICAL HISTORY: Right great toe diabetic ulcer, R/O gas, fluid TECHNIQUE: COMPARISON: No exams were available for comparison FINDINGS: Three views were obtained. Patient reportedly has an ulcer of the great toe. No gross bony defect identified. No gas in the soft tissues. IMPRESSION: No evidence of acute process. If there is a high clinical suspicion of osteomyelitis, additional evaluation with MRI may be considered. HPI General Mode of arrival: ambulatory . Date/Time Provider Initiated Documentation: 09/12/21 14:02 . Limitations to Documentation: no limitations . Information obtained by: patient, family, RN notes reviewed and old records reviewed . HPI Narrative: 36-year-old female with a past medical history of diabetic neuropathy, diabetes, anxiety depression, suicide attempt, amputation of left great toe and history of tubal ligation presents to the ER with chief complaint of right great big toe ulcer which she noted yesterday. Per the he cleaned it today with hydrogen peroxide and dressing and noted that it is draining. Patient has a history of a left great toe amputation approximately 1 year ago. She has not been on antibiotics in the last few months. She does see senior technical analyst in [facility] for stone. She reports that she is able to get in with them within the next week if needed. She denies any fever nausea vomiting diarrhea. Related Data Home Medications Medication Instructions Recorded Confirmed gabapentin 300 mg tablet 300 - 900 mg PO DIRECTED 01/24/21 09/12/21 lorazepam 0.5 mg tablet 0.5 mg PO BID PRN 01/24/21 09/12/21 metoclopramide HCl 5 mg tablet 5 mg PO DAILY 01/24/21 09/12/21 (Reglan) empagliflozin 10 mg tablet 10 mg PO DAILY 01/28/21 09/12/21 (Jardiance) insulin glargine 100 unit/mL 40 unit SUBCUT DAILY 01/28/21 09/12/21 subcutaneous cartridge omeprazole 20 mg capsule,delayed 40 mg PO DAILY #60 cap 01/28/21 09/12/21 release promethazine 25 mg rectal 25 mg SC ONCE #12 ea 03/08/21 09/12/21 suppository levofloxacin 750 mg tablet 750 mg PO DAILY 7 Days #7 tab 09/12/21 tramadol 50 mg tablet 50 mg PO PRN PRN 09/12/21 09/12/21 Previous Rx's Medication Instructions Recorded omeprazole 20 mg capsule,delayed 40 mg PO DAILY #60 cap 01/28/21 release promethazine 25 mg rectal 25 mg SC ONCE #12 ea 03/08/21 suppository levofloxacin 750 mg tablet 750 mg PO DAILY 7 Days #7 tab 09/12/21 Allergies Allergy/AdvReac Type Severity Reaction Status Date / Time ibuprofen [From Advil] Allergy Severe throat Unverified 09/12/21 14:11 closes General Stated Complaint: Cellulitis ARNOLD: 3 Review of Systems All systems reviewed & are unremarkable except as noted in HPI and below Constitutional Constitutional: Denies fever(s) Integumentary/Breasts Skin/Breast: Reports as per HPI, Reports erythema and Reports skin ulcer (Right great toe) PFSH All Active Problems (Updated 09/12/21 @ 15:46 by Katiana Adams) Diabetic ulcer of right great toe (Acute) UTI (urinary tract infection) (Acute) Gastroparesis (Chronic) Upper GI bleeding (Acute) Discharge planning issues (Acute) DVT prophylaxis (Acute) Cannabinoid hyperemesis syndrome (Acute) Tobacco abuse (Acute) IDDM (insulin dependent diabetes mellitus) (Chronic) Nausea and vomiting (Acute) Vomiting (Acute) Vomiting (Acute) Acute dehydration (Acute) Medical History Anxiety and depression Diabetes Diabetic neuropathy Suicide attempt Surgical History Amputation of left great toe H/O tubal ligation Family History Paternal Grandmother Heart disease Diabetes Maternal Aunt Hypertension Breast cancer maternal great aunt Maternal Grandfather Hypertension Maternal Grandmother Breast cancer Maternal Aunt No problems noted. Maternal Cousin Breast cancer Maternal Cousin Breast cancer Maternal Cousin Breast cancer Social History Smoking/Tobacco Use Status: Current every day Tobacco Type: cigarettes Smoking risk assessment performed?: Yes Alcohol Intake: never Drug use: Socially Substance use type: marijuana Do you feel safe at home: Yes Do you feel safe in your relationship?: Yes Exam Extrem Right lower extremity: foot Details: normal capillary refill and warmth Ankle/foot/toe images: 1. Approximately 0.5 x 0.5 cm 2nd stage ulcer noted to bottom of Right Great Toe. 2. Questionable mild erythema, mild warmth Course Vital Signs Vital signs: Vital Signs Temperature 36.7 C 09/12/21 14:08 Pulse 110 H 09/12/21 14:08 Respiratory Rate 18 09/12/21 14:08 Blood Pressure 119/82 09/12/21 14:08 Pulse Oximetry 99 09/12/21 14:08 Temperature 36.7 C 09/12/21 14:08 Temperature Source Temporal Artery Scan 09/12/21 14:08 Pulse 110 H 09/12/21 14:08 Respiratory Rate 18 09/12/21 14:08 Respiratory Effort Non-Labored 09/12/21 14:14 Blood Pressure 119/82 09/12/21 14:08 Blood Pressure Position Sitting 09/12/21 14:08 Pulse Oximetry 99 09/12/21 14:08 Oxygen Delivery Method Room Air 09/12/21 14:08 Oxygen Flow Rate 0 09/12/21 14:08
--- NOTE | 2021-09-12 14:30 | DI.RAD_ITS ---
Exam(s) XR FOOT RT COMPLETE EXAM: XR FOOT RT COMPLETE CLINICAL HISTORY: Right great toe diabetic ulcer, R/O gas, fluid TECHNIQUE: COMPARISON: No exams were available for comparison FINDINGS: Three views were obtained. Patient reportedly has an ulcer of the great toe. No gross bony defect i dentified. No gas in the soft tissues. IMPRESSION: No evidence of acute process. If there is a high clinical suspicion of osteomyelitis, additional elizabeth luation with MRI may be considered. RADIATION DOSE DELIVERED: Total DLP
[2021-09-12] MEDS: levoFLOXacin 500 MG, levoFLOXacin 250 MG 750 MG PO (14:55)
--- NOTE | 2021-09-14 09:12 | NUR.NOTE ---
referral for podiatry sent to [facility] office. DC summary and ed note included. EJC,QUALITY CONTROL SPECIALIST
== END 2021-09-12 16:15 | disposition home or self-care (01) ==
PROVIDERS: Emergency Provider Registered Nurse Emergency
DX: E11.621 Type 2 diabetes mellitus with foot ulcer (principal); L97.519 Non-pressure chronic ulcer of other part of right foot with unspecified severity
CPT/HCPCS: 99283; 73630

== ENCOUNTER 2021-11-16 15:54 | Emergency (ER) | payer MEDICAID, SELFPAY ==
[2021-11-16 16:07] VITALS: BP 136/86; PULSE 125; RESP 20; TEMP 36.9; O2SAT 98
--- NOTE | 2021-11-16 16:34 | ED.GENADUL_ITS ---
Discharge Plan Disposition Patient Disposition: HOME Condition: Improving Discharge Details Clinical Impression: Vomiting, Controlled type 1 diabetes mellitus with cellulitis of toe Primary Care Provider: Unknown,Unknown ED Provider: Katiana Adams Home Meds and New Rx's Prescriptions: New cephalexin 500 mg tablet 500 mg PO BID 10 Days Qty: 20 0RF ondansetron 4 mg tablet,disintegrating 4 mg PO Q8H PRN (Reason: nausea and vomiting) 4 Days Qty: 12 0RF Rx Instructions: Take 20 minutes prior to eating or drinking anything Continued insulin glargine 100 unit/mL Cartridge 40 unit SUBCUT DAILY Jardiance 10 mg Tablet 10 mg PO DAILY omeprazole 20 mg capsule,delayed release(DR/EC) 40 mg PO DAILY Qty: 60 0RF No Action gabapentin 300 mg Tablet 300 - 900 mg PO DIRECTED Rx Instructions: 300 qam 900 hs lorazepam 0.5 mg Tablet 0.5 mg PO BID PRN promethazine 25 mg suppository 25 mg FL ONCE Qty: 12 0RF Rx Instructions: may repeat once in 12 hours tramadol 50 mg tablet 50 mg PO PRN PRN Label Comments: TAKE 1 TABLET BY MOUTH EVERY 6 HOURS NEEDED FOR PAIN - DAILY MAX 4 TABLETS (200MG) Discharge Instructions Instructions: Cellulitis (ED), Gastroparesis (ED) Additional Instructions: Take the nausea vomiting medication as directed. 20 minutes before eating or drinking anything. Then start slow sips of fluid or electrolyte drink of your choice. Advance diet as tolerated slowly with a bland diet. Take the antibiotic as directed with yogurt or probiotics. Please follow-up with podiatry soon as possible. Referrals: Blake Wright DPM [[facility] STAFF PHYSICIAN] - 1 week (Left diabetic toe cellulitis) Discharge Data Discharge Date/Time-TO BE ENTERED AT DEPARTURE: 11/16/21 20:52 Medical Decision Making 36 year old female presents with vomiting for 36 hours, hx of gastroparesis, IDDM, denies fever, Also reports x 2 weeks ago 2nd teonail fell off per with purulent drainage. Now erythema extending to second half of distal digit. Patient actively vomiting upon initial exam, workup ordered to rule out sepsis, gastroparesis flare, DKA, infection, etc Patient had additional episodes of emesis, Zofran 4 mg also ordered for a total of 8 mg She is received a liter of normal saline instruct hospital staff pharmacist to give an additional liter for total of 2 L, Blood cell count shows leukocytosis with a count of 17.33, platelets 438, left shift noted with absolute neutrophils 11.96 potassium 3.0 chloride 94 glucose 290, alk phos is 129, ferritin 160 ketones in the urine small bilirubin, glucose 500 Patient reevaluation, vital signs of improved, she is sleeping she is received a gram of Rocephin and 2 L of saline. We did discuss home care with her and family who verbalized understanding. Patient was given Zofran ODT to go and cephalexin prescription. Referral for podiatry for left diabetic toe cellulitis written. Discussed strict return instructions. This text was generated using [employer] dictation system, please disregard any oddities of phrase or misspellings. Imaging Data Radiologic Study: Imaging: X-Ray Radiologist's impression: Imaging protocol: XR Left foot. Views: 3 or more views. COMPARISON: No relevant prior studies available. FINDINGS: Bones/joints: First toe amputated. No acute bone destruction or lysis. Soft tissues: Soft tissue ulceration distal 2nd toe. No soft tissue gas. IMPRESSION: No evidence of acute osteomyelitis. Thank you for allowing us to participate in the care of your patient. Dictated and Authenticated by: Josh Jordan MD [facility] General Mode of arrival: wheelchair . Date/Time Provider Initiated Documentation: 11/16/21 15:58 . Limitations to Documentation: no limitations . Information obtained by: patient, family (), RN notes reviewed and old records reviewed . HPI Narrative: 36 year old female presents with vomiting for 36 hours, hx of gastroparesis, IDDM, denies fever, Also reports x 2 weeks ago 2nd teonail fell off per with purulent drainage. Now erythema extending to second half of distal digit. Patient actively vomiting upon initial exam. Related Data Home Medications Medication Instructions Recorded Confirmed gabapentin 300 mg tablet 300 - 900 mg PO DIRECTED 01/24/21 11/16/21 lorazepam 0.5 mg tablet 0.5 mg PO BID PRN 01/24/21 11/16/21 empagliflozin 10 mg tablet 10 mg PO DAILY 01/28/21 11/16/21 (Jardiance) insulin glargine 100 unit/mL 40 unit subcut DAILY 01/28/21 11/16/21 subcutaneous cartridge omeprazole 20 mg capsule,delayed 40 mg PO DAILY #60 caps 01/28/21 11/16/21 release promethazine 25 mg rectal 25 mg FL ONCE #12 ea 03/08/21 11/16/21 suppository tramadol 50 mg tablet 50 mg PO PRN PRN 09/12/21 11/16/21 cephalexin 500 mg tablet 500 mg PO BID 10 days #20 tabs 11/16/21 ondansetron 4 mg disintegrating 4 mg PO Q8H PRN nausea and 11/16/21 tablet vomiting 4 days #12 tabs Previous Rx's Medication Instructions Recorded omeprazole 20 mg capsule,delayed 40 mg PO DAILY #60 caps 01/28/21 release promethazine 25 mg rectal 25 mg FL ONCE #12 ea 03/08/21 suppository cephalexin 500 mg tablet 500 mg PO BID 10 days #20 tabs 11/16/21 ondansetron 4 mg disintegrating 4 mg PO Q8H PRN nausea and 11/16/21 tablet vomiting 4 days #12 tabs Allergies Allergy/AdvReac Type Severity Reaction Status Date / Time ibuprofen [From Advil] Allergy Severe throat Unverified 11/16/21 16:11 closes General Stated Complaint: Nausea/Vomit/Diar ARNOLD: 3 Review of Systems All systems reviewed & are unremarkable except as noted in HPI and below Constitutional Constitutional: Reports as per HPI and Reports malaise Cardiovascular Cardiovascular: Denies chest pain and Denies dyspnea Respiratory Respiratory: Denies cough and Denies dyspnea Gastrointestinal Gastrointestinal: Denies abdominal pain, Denies diarrhea, Reports nausea and Reports vomiting Endocrine Endocrine: Reports as per HPI PFSH All Active Problems (Updated 11/16/21 @ 20:24 by Katiana Adams) Controlled type 1 diabetes mellitus with cellulitis of toe (Acute) UTI (urinary tract infection) (Acute) Gastroparesis (Chronic) Upper GI bleeding (Acute) Discharge planning issues (Acute) DVT prophylaxis (Acute) Cannabinoid hyperemesis syndrome (Acute) Tobacco abuse (Acute) IDDM (insulin dependent diabetes mellitus) (Chronic) Nausea and vomiting (Acute) Vomiting (Acute) Vomiting (Acute) Acute dehydration (Acute) Medical History Anxiety and depression Diabetes Diabetic neuropathy Suicide attempt Surgical History Amputation of left great toe H/O tubal ligation Family History Paternal Grandmother Heart disease Diabetes Maternal Aunt Hypertension Breast cancer maternal great aunt Maternal Grandfather Hypertension Maternal Grandmother Breast cancer Maternal Aunt No problems noted. Maternal Cousin Breast cancer Maternal Cousin Breast cancer Maternal Cousin Breast cancer Social History Smoking/Tobacco Use Status: Current every day Tobacco Type: cigarettes Smoking risk assessment performed?: Yes Alcohol Intake: never Drug use: Socially Substance use type: marijuana Do you feel safe at home: Yes Do you feel safe in your relationship?: Yes Exam Narrative Exam Narrative: constitutional: Alert and oriented x3. Appears stated age. Normal body habitus. Patient appears sickly. Uncomfortable. Actively vomiting upon initial examination. Head: Normocephalic, no trauma. Eyes: Pupils PERRL, Red reflex noted, EOM's intact. Eyelids symmetrical without lesions, discharge, or swelling. Chest: RRR, Normal S1, S2, distal pulses intact. Resp: Lungs clear to auscultation bilaterally, no wheezes, rales, or rhonchi. Abdomen: Soft, non-distended, Normoactive bowel sounds all 4 quads. Musculoskeletal: Unable to assess, 5/5 strength to all four extremities. Skin: No suspicious rashes or lesions. Capillary refill less than 2 sec. Neurologic: Cranial nerves II-XII intact. Alert and oriented x 3. Motor: No deficits noted. Sensory: Intact bilaterally all 4 extremities. Hematologic/Lymphatic: No ecchymosis, no lymphadenopathy. Course Vital Signs Vital signs: Vital Signs Temperature 36.9 C 11/16/21 16:07 Pulse 125 H 11/16/21 16:07 Respiratory Rate 20 11/16/21 16:07 Blood Pressure 136/86 11/16/21 16:07 Pulse Oximetry 98 11/16/21 16:07 Temperature 36.9 C 11/16/21 16:07 Pulse 125 H 11/16/21 16:07 Respiratory Rate 20 11/16/21 16:07 Respiratory Effort Non-Labored 11/16/21 16:10 Blood Pressure 136/86 11/16/21 16:07 Blood Pressure Position Sitting 11/16/21 16:07 Pulse Oximetry 98 11/16/21 16:07 Oxygen Delivery Method Room Air 11/16/21 16:07 Oxygen Flow Rate 0 11/16/21 16:07 Pain Level 10 11/16/21 16:07 Lab/Test Results Lab/Test Results: 11/16/21 16:31 Blood Blood Culture - Pending 11/16/21 16:31 Blood Blood Culture - Pending
--- NOTE | 2021-11-16 16:34 | DI.RAD_ITS ---
Exam(s) XR FOOT LT COMPLETE EXAM: XR FOOT LT COMPLETE CLINICAL HISTORY: Left 2nd toe ulcer, wound r/o gas/ osteomyelitis. TECHNIQUE: 2D digital imaging was performed. COMPARISON: CR XR FOOT RT COMPLETE from 09/12/2021 FINDINGS: 3 views There has been amputation of the phalanges of the great toe. There is no gas in the tissues at this level and no radiographic evidence of osteomyelitis in the head of the great toe metatarsal. There i s a skin ulcer over the distal aspect of the 2nd toe. However, the underlying tuft of the distal pha lanx is intact. No radiographic evidence of osteomyelitis incidental note of an ununited apophysis n oted at the navicular tuberosity Large inferior calcaneal spur noted. IMPRESSION: As above but no radiographic evidence of osteomyelitis. Also no soft tissue gas evident DATA REPOSITORY: RADIATION DOSE DELIVERED:
[2021-11-16] MEDS: Ondansetron 4 MG/2 ML VIAL IVP ×2 (17:00→18:45)
[2021-11-16] MEDS: Normal Saline 1,000 ML 1000 ML IV (17:00)
[2021-11-16 17:05] LABS: Bilirubin Small (Negative); Blood Negative (Negative); Clarity Clear (Clear); Glucose 500 mg/dL (Negative); Ketones >=160 mg/dL (Negative); Leukocyte Esterase Negative (Negative); Nitrite Negative (Negative); Specific Gravity 1.025 (1.005-1.025); Urobilinogen 0.2 EU/dL (Up TO 0.2)
[2021-11-16 17:10] LABS: Abs Immature Grans 0.08 10^3/uL (0.0-0.06); Absolute Neutrophil Count 11.96 10^3/uL (1.2-6.7); Basophils % 0.2; HCT 45.7 % (36.0-46.0); HGB 16.2 g/dL (11.2-15.7); Immature Grans % 0.5; Lymphocytes % 20.3; MCH 31.2 pg (27.0-33.0); MCHC 35.4 % (32.0-36.0); MCV 88 fL (80-95); MPV 9.8 fL (8.0-11.0); Platelet Count 438 10^3/uL (130-400); RDW 12.3 % (11.7-14.6); RDW-SD 39.7 fL; WBC 17.33 10^3/uL (4.4-10.8)
[2021-11-16 17:11] LABS: Lactate 1.3 mmol/L (0.6-1.4)
[2021-11-16 17:12] LABS: Bacteria Negative HPF (Negative); C & S Indicated? No; Casts Negative LPF (Negative); Crystals Negative HPF (Negative); Epithelial Cells Few HPF (Negative); Mucus Trace (Negative); RBC 0-2 HPF (0-2); WBC 0-2 HPF (0-5)
[2021-11-16 17:13] LABS: Absolute Basophil Count 0.03 10^3/uL (0.0-0.2); Absolute Lymphocyte Count 3.52 10^3/uL (1.2-3.4); Absolute Monocyte Count 1.73 10^3/uL (0.1-0.8)
[2021-11-16 17:29] LABS: Diff Comment Agrees w/ Instrument; RBC Morphology Normal
--- NOTE | 2021-11-16 17:31 | NUR.NOTE ---
Nursing Note: PT RESTING ON STRETCHER, NO FURTHER VOMITTING SINCE ZOFRAN ADMINISTERED, CONT. TO MONITOR.
[2021-11-16 17:44] LABS: ALT 24 U/L (14-59); AST 20 U/L (15-37); Albumin 4.1 g/dL (3.4-5.0); Alkaline Phosphatase 129 U/L (46-116); BUN 13 mg/dL (7-18); Bilirubin, Total 0.5 mg/dL (0.2-1.0); CREATININE 0.7 mg/dL (0.55-1.02); Calcium 9.8 mg/dL (8.5-10.1); Chloride 94 mmol/L (98-107); Glucose 290 mg/dL (74-106); Magnesium 1.9 mg/dL (1.8-2.4); Sodium 137 mmol/L (136-145); Total Protein 8.6 g/dL (6.4-8.2)
--- NOTE | 2021-11-16 18:01 | DI.VRAD_ITS ---
PROCEDURE INFORMATION: Exam: XR Left Foot Exam date and time: 11/16/2021 5:08 PM Age: 36 years old Clinical indication: Cellulitis; Foot; Prior surgery; Patient HX: Left 2nd toe ulcer, wound R/O gas/ osteomyelitis TECHNIQUE: Imaging protocol: XR Left foot. Views: 3 or more views. COMPARISON: No relevant prior studies available. FINDINGS: Bones/joints: First toe amputated. No acute bone destruction or lysis. Soft tissues: Soft tissue ulceration distal 2nd toe. No soft tissue gas. IMPRESSION: No evidence of acute osteomyelitis. Dictated and Authenticated by: Josh Jordan MD. Ordering:AYANNA Saab MD
[2021-11-16 18:04] VITALS: BP 109/68; PULSE 124; RESP 20; TEMP 36.9; O2SAT 98
[2021-11-16 19:09] VITALS: BP 140/83; PULSE 96; RESP 18; O2SAT 98
--- NOTE | 2021-11-16 20:35 | NUR.NOTE ---
Addendum entered by Mari Ma 11/16/21 20:40: f/u 1-2 weeks. Original Note: Referral faxed to Podiatry Dr. Wright to follow up as soon as possible for diabetic toe cellulitis.Nursing Note:
[2021-11-16] MEDS: Ondansetron O.D.T. 4 MG TABEF, 3 TABS/BTL PO (20:45)
[2021-11-16] MEDS: Cephalexin 500 MG CAP, 2 CAPS/BTL PO (20:45)
== END 2021-11-16 20:52 | disposition home or self-care (01) ==
PROVIDERS: Emergency Provider Registered Nurse Emergency
DX: R11.10 Vomiting, unspecified (principal); E10.628 Type 1 diabetes mellitus with other skin complications; L03.032 Cellulitis of left toe
CPT/HCPCS: 36415; 80053; 87040; 96361; 96365; 96375; 96376; 99284; 73630; 81003; 81015; 83605; 83735; 85025; J0696; J2405

== ENCOUNTER 2021-11-17 19:11 | Emergency (ER) | payer MEDICAID, SELFPAY ==
[2021-11-17] VITALS (17 sets, daily range): BP systolic 125–151; BP diastolic 83–94; PULSE 75–115; RESP 11–28; TEMP 36.8; O2SAT 98–100
--- NOTE | 2021-11-17 19:34 | W.ED.GENAD ---
Discharge Plan Disposition Patient Disposition: HOME Condition: Improving Discharge Details Clinical Impression: Nausea and vomiting, Hypokalemia Primary Care Provider: Unknown,Unknown ED Provider: Mukesh Swift Home Meds and New Rx's Prescriptions: New metoclopramide HCl [Reglan] 10 mg tablet 10 mg PO Q6H PRNQty: 10 0RF Continued gabapentin 300 mg Tablet 300 - 900 mg PO DIRECTED Rx Instructions: 300 qam 900 hs lorazepam 0.5 mg Tablet 0.5 mg PO BID PRN insulin glargine 100 unit/mL Cartridge 40 unit SUBCUT DAILY Jardiance 10 mg Tablet 10 mg PO DAILY omeprazole 20 mg capsule,delayed release(DR/EC) 40 mg PO DAILY Qty: 60 0RF promethazine 25 mg suppository 25 mg AR ONCE Qty: 12 0RF Rx Instructions: may repeat once in 12 hours tramadol 50 mg tablet 50 mg PO PRN PRN Label Comments: TAKE 1 TABLET BY MOUTH EVERY 6 HOURS NEEDED FOR PAIN - DAILY MAX 4 TABLETS (200MG) cephalexin 500 mg tablet 500 mg PO BID 10 Days Qty: 20 0RF ondansetron 4 mg tablet,disintegrating 4 mg PO Q8H PRN (Reason: nausea and vomiting) 4 Days Qty: 12 0RF Rx Instructions: Take 20 minutes prior to eating or drinking anything Discharge Instructions Instructions: Hypokalemia (ED), Acute Nausea and Vomiting (ED) Additional Instructions: Here in the ER today he received potassium supplementation, antiemetics, and IV fluid which you have responded nicely with. You have Zofran at home, I am providing a prescription for Reglan as well to take as directed. During your visit yesterday you were placed on the care management list to help expedite both podiatry and primary care follow-up. Given your low potassium today, be sure over the next couple of days to drink fluids with electrolytes as well as eating bananas which are high in potassium. Please watch for new or worsening symptoms and return to the ER for any concerns. Discharge Data Discharge Date/Time-TO BE ENTERED AT DEPARTURE: 11/17/21 22:40 Medical Decision Making This is a 36-year-old female, past medical history of diabetes, neuropathy, anxiety, depression, gastroparesis, who presents to the ER today for 3-day history of ongoing nausea, vomiting, concern for dehydration. Patient states that she was seen yesterday in the ER for the same, discharged with Keflex for a toe infection as well as Zofran but sometimes she needs both Reglan and Zofran. Clinically she appears well, nontoxic, she has moist mucous membranes, pulse in the 90s, abdomen is soft, nontender and she is afebrile. Plan is to obtain IV access, give IV Zofran, Reglan, GI cocktail as well as 3 L IV fluid, 2 of normal saline, 1 of lactated Ringer's, and obtain routine screening laboratory values. When reviewing her record from yesterday, she presented with tachycardia yesterday and today her heart rate is appropriate. I see no obvious active cellulitis at the site of her toe, she states that she was able to take her Keflex today. Patient tells me that she has gastroparesis and that she does get this fairly regularly, this feels normal for her. She was placed on the care management list to help expedite both primary care follow-up and podiatry follow-up yesterday. Laboratory values reveal a white blood cell count of 15.73 which is actually improving when compared to yesterday. Sodium 132 potassium 2.8, replenished with IV and oral and obtain a EKG. Anion gap minimally elevated 11.2. Glucose of 245, creatinine 0.6 with a GFR greater than 60. LFTs unremarkable lipase 91. Urinalysis reveals greater than 160 ketones, no signs of infection Patient received almost 2 L of IV fluid. She was able to tolerate p.o. intake without difficulty and clinically reports feeling much improved, so much so that she is requesting discharge. I did explain to her that I would like her to receive her third liter of fluid which she does not want to wait for but she is agreeable to awaiting a redraw and recheck of her BMP. Sodium 132, potassium improved to 3.3 anion gap is now normal at 8.5 creatinine 0.6 with a GFR greater than 60. Glucose down to 219. No vomiting while under my care. Based upon her laboratory values and presentation low suspicion for DKA. Patient reports that she is feeling much improved and would like to be discharged. She has a prescription for Zofran and Keflex and I will add on a prescription of the Reglan. Standard discharge and return precautions were provided. Patient understands, is agreeable to this plan, and has no additional questions or concerns upon discharge. This documentation was generated using [employer] system, please disregard any oddities of phrase or misspellings. Medical Records Medical records reviewed: Yes I reviewed the patient's medical records. Lab Data Lab results reviewed: Yes I reviewed the patient's lab results. Labs: Laboratory Tests Range/Units 11/17/21 11/17/21 11/17/21 19:27 19:34 19:34 WBC (4.4-10.8) 10^3/uL 15.73 H RBC (3.93-5.22) 10^6/uL 4.76 Hgb (11.2-15.7) g/dL 14.7 Hct (36.0-46.0) % 41.2 MCV (80-95) fL 87 MCH (27.0-33.0) pg 30.9 MCHC (32.0-36.0) % 35.7 RDW (11.7-14.6) % 12.0 Plt Count (130-400) 10^3/uL 411 H MPV (8.0-11.0) fL 9.6 Immature Gran % 0.4 Neutrophils % 63.0 Lymphocytes % 25.9 Monocytes % 10.0 Eosinophils % 0.3 Basophils % 0.4 Nucleated RBC % (0.0-0.3) % 0.0 Absolute Neutrophils (1.2-6.7) 10^3/uL 9.91 H Absolute Lymphocytes (1.2-3.4) 10^3/uL 4.07 H Absolute Monocytes (0.1-0.8) 10^3/uL 1.57 H Absolute Eosinophils (0.0-0.7) 10^3/uL 0.05 Absolute Basophils (0.0-0.2) 10^3/uL 0.06 RBC Morphology Normal Sodium (136-145) mmol/L 132 L Potassium (3.5-5.1) mmol/L 2.8 L* Chloride (98-107) mmol/L 93 L Carbon Dioxide (21.0-32.0) mmol/L 27.8 Anion Gap (3-11) mmol/L 11.2 H BUN (7-18) mg/dL 10 Creatinine (0.55-1.02) mg/dL 0.6 Estimated GFR/1.73 m2 (mL/min/1.73m2) >= 60.00 Glucose (74-106) mg/dL 245 H Calcium (8.5-10.1) mg/dL 8.9 Total Bilirubin (0.2-1.0) mg/dL 0.7 AST (15-37) U/L 20 ALT (14-59) U/L 28 Alkaline Phosphatase (46-116) U/L 111 Total Protein (6.4-8.2) g/dL 7.5 Albumin (3.4-5.0) g/dL 3.6 Lipase (73-393) U/L 91 Urine Color (Yellow) Yellow Urine Clarity (Clear) Clear Urine pH (5-8) 7.0 Ur Specific [place] (1.005-1.025) 1.020 Urine Protein (Negative) mg/dL Negative Urine Ketones (Negative) mg/dL >=160 H Urine Blood (Negative) Negative Urine Nitrite (Negative) Negative Urine Bilirubin (Negative) Small H Urine Urobilinogen (Up TO 0.2) EU/dL 0.2 Ur Leukocyte Esterase (Negative) Negative Urine Glucose (Negative) mg/dL 500 H Range/Units 11/17/21 22:10 WBC (4.4-10.8) 10^3/uL RBC (3.93-5.22) 10^6/uL Hgb (11.2-15.7) g/dL Hct (36.0-46.0) % MCV (80-95) fL MCH (27.0-33.0) pg MCHC (32.0-36.0) % RDW (11.7-14.6) % Plt Count (130-400) 10^3/uL MPV (8.0-11.0) fL Immature Gran % Neutrophils % Lymphocytes % Monocytes % Eosinophils % Basophils % Nucleated RBC % (0.0-0.3) % Absolute Neutrophils (1.2-6.7) 10^3/uL Absolute Lymphocytes (1.2-3.4) 10^3/uL Absolute Monocytes (0.1-0.8) 10^3/uL Absolute Eosinophils (0.0-0.7) 10^3/uL Absolute Basophils (0.0-0.2) 10^3/uL RBC Morphology Sodium (136-145) mmol/L 132 L Potassium (3.5-5.1) mmol/L 3.3 L Chloride (98-107) mmol/L 96 L Carbon Dioxide (21.0-32.0) mmol/L 27.5 Anion Gap (3-11) mmol/L 8.5 BUN (7-18) mg/dL 8 Creatinine (0.55-1.02) mg/dL 0.6 Estimated GFR/1.73 m2 (mL/min/1.73m2) >= 60.00 Glucose (74-106) mg/dL 219 H Calcium (8.5-10.1) mg/dL 8.4 L Total Bilirubin (0.2-1.0) mg/dL AST (15-37) U/L ALT (14-59) U/L Alkaline Phosphatase (46-116) U/L Total Protein (6.4-8.2) g/dL Albumin (3.4-5.0) g/dL Lipase (73-393) U/L Urine Color (Yellow) Urine Clarity (Clear) Urine pH (5-8) Ur Specific [place] (1.005-1.025) Urine Protein (Negative) mg/dL Urine Ketones (Negative) mg/dL Urine Blood (Negative) Urine Nitrite (Negative) Urine Bilirubin (Negative) Urine Urobilinogen (Up TO 0.2) EU/dL Ur Leukocyte Esterase (Negative) Urine Glucose (Negative) mg/dL ECG Data Attestation: I personally reviewed and interpreted this ECG (s) as follows: Interpretation: Please see official report by Dr. Mera, sinus rhythm, ventricular of 91, no STEMI, no changes consistent with hypokalemia HPI General Mode of arrival: ambulatory. Date/Time Provider Initiated Documentation: 11/17/21 19:16. Limitations to Documentation: no limitations. Information obtained by: patient and family. History of Present Illness 36 year old F presents to the emergency department with the chief complaint of N/V, described as moderate, with intensity rated at 6. Quality is described as burning (acid reflux), and is localized to the abdomen. Patient reports no radiation. Patient started experiencing this day(s) (3) and it has been intermittent. No relieving factors improve symptom(s), Eating worsens symptoms . Patient notes other (dehydration). Patient did receive the following treatments prior to arrival, other (keflex and zofran) Related Data Home Medications Medication Instructions Recorded Confirmed gabapentin 300 mg tablet 300 - 900 mg PO DIRECTED 01/24/21 11/17/21 lorazepam 0.5 mg tablet 0.5 mg PO BID PRN 01/24/21 11/17/21 empagliflozin 10 mg tablet 10 mg PO DAILY 01/28/21 11/17/21 (Jardiance) insulin glargine 100 unit/mL 40 unit subcut DAILY 01/28/21 11/17/21 subcutaneous cartridge omeprazole 20 mg capsule,delayed 40 mg PO DAILY #60 caps 01/28/21 11/17/21 release promethazine 25 mg rectal 25 mg AR ONCE #12 ea 03/08/21 11/17/21 suppository tramadol 50 mg tablet 50 mg PO PRN PRN 09/12/21 11/17/21 cephalexin 500 mg tablet 500 mg PO BID 10 days #20 tabs 11/16/21 11/17/21 ondansetron 4 mg disintegrating 4 mg PO Q8H PRN nausea and 11/16/21 11/17/21 tablet vomiting 4 days #12 tabs metoclopramide HCl 10 mg tablet 10 mg PO Q6H PRN #10 tabs 11/17/21 (Reglan) Previous Rx's Medication Instructions Recorded omeprazole 20 mg capsule,delayed 40 mg PO DAILY #60 caps 01/28/21 release promethazine 25 mg rectal 25 mg AR ONCE #12 ea 03/08/21 suppository cephalexin 500 mg tablet 500 mg PO BID 10 days #20 tabs 11/16/21 ondansetron 4 mg disintegrating 4 mg PO Q8H PRN nausea and 11/16/21 tablet vomiting 4 days #12 tabs metoclopramide HCl 10 mg tablet 10 mg PO Q6H PRN #10 tabs 11/17/21 (Reglan) Allergies Allergy/AdvReac Type Severity Reaction Status Date / Time ibuprofen [From Advil] Allergy Severe throat Unverified 11/17/21 19:20 closes General Stated Complaint: Nausea/Vomit/Diar ARNOLD: 3 Review of Systems Constitutional Constitutional: Denies fever(s) and Denies weakness ENT Ears, Nose, Mouth, and Throat: Denies neck pain Cardiovascular Cardiovascular: Denies chest pain and Denies dyspnea Respiratory Respiratory: Denies cough and Denies dyspnea Gastrointestinal Gastrointestinal: Denies abdominal pain, Reports nausea and Reports vomiting Genitourinary Genitourinary: Denies dysuria Musculoskeletal Musculoskeletal: Denies back pain and Denies neck pain Integumentary/Breasts Skin/Breast: Denies rash Neurologic Neurologic: Denies weakness PFS All Active Problems (Updated 11/17/21 @ 22:31 by EUNICE Mota) Controlled type 1 diabetes mellitus with cellulitis of toe (Acute) Hypokalemia (Acute) UTI (urinary tract infection) (Acute) Gastroparesis (Chronic) Upper GI bleeding (Acute) Discharge planning issues (Acute) DVT prophylaxis (Acute) Cannabinoid hyperemesis syndrome (Acute) Tobacco abuse (Acute) IDDM (insulin dependent diabetes mellitus) (Chronic) Nausea and vomiting (Acute) Vomiting (Acute) Vomiting (Acute) Acute dehydration (Acute) Medical History Anxiety and depression Diabetes Diabetic neuropathy Suicide attempt Surgical History Amputation of left great toe H/O tubal ligation Family History Paternal Grandmother Heart disease Diabetes Maternal Aunt Hypertension Breast cancer maternal great aunt Maternal Grandfather Hypertension Maternal Grandmother Breast cancer Maternal Aunt No problems noted. Maternal Cousin Breast cancer Maternal Cousin Breast cancer Maternal Cousin Breast cancer Social History Smoking/Tobacco Use Status: Current every day Tobacco Type: cigarettes Smoking risk assessment performed?: Yes Alcohol Intake: never Drug use: Socially Substance use type: marijuana Do you feel safe at home: Yes Do you feel safe in your relationship?: Yes Exam Const General: cooperative, healthy appearing, comfortable and no acute distress Orientation: alert and awake [facility] Head: normal to inspection, normocephalic and atraumatic Face and sinus: normal facial exam Mouth: oral mucosae normal and moist mucous membranes Throat: posterior oropharynx normal Eyes General: appearance normal, both eyes and all related structures Conjunctivae: conjunctivae normal Neck Neck: normal visual inspection, full ROM, trachea midline and supple Resp Effort & Inspection: normal respiratory effort and able to speak in complete sentences Auscultation: clear to auscultation bilaterally Cardio Rate: regular rate Rhythm: regular rhythm GI Inspection: normal to inspection and obesity Palpation: soft, not firm, no guarding, no pulsatile masses and nontender Auscultation: normal bowel sounds Back/Spine/Pelvis Back: No back tenderness Skin General skin exam: no rashes or lesions noted Neuro General: patient alert, patient awake, moves all extremities and no focal motor deficits Cognition: normal cognition Speech: speech normal Gait: normal gait Sensory Exam: no sensory deficits noted Psych Appearance: grossly normal Mental Status: mental status grossly normal Course Vital Signs Vital signs: Vital Signs Temperature 36.8 C 11/17/21 19:17 Pulse 96 H 11/17/21 19:17 Blood Pressure 143/87 H 11/17/21 19:17 Pulse Oximetry 98 11/17/21 19:17 Temperature 36.8 C 11/17/21 19:17 Temperature Source Temporal Artery Scan 11/17/21 19:17 Pulse 96 H 11/17/21 19:17 Respiratory Effort Non-Labored 11/17/21 19:22 Blood Pressure 143/87 H 11/17/21 19:17 Blood Pressure Position Sitting 11/17/21 19:17 Pulse Oximetry 98 11/17/21 19:17 Oxygen Delivery Method Room Air 11/17/21 19:17 Oxygen Flow Rate 0 11/17/21 19:17 Lab/Test Results Lab/Test Results: POC- Test(urine) Negative
[2021-11-17 19:37] LABS: Bilirubin Small (Negative); Blood Negative (Negative); Clarity Clear (Clear); Glucose 500 mg/dL (Negative); Ketones >=160 mg/dL (Negative); Leukocyte Esterase Negative (Negative); Nitrite Negative (Negative); Urobilinogen 0.2 EU/dL (Up TO 0.2)
[2021-11-17] MEDS: Ondansetron 4 MG/2 ML VIAL IVP (19:47)
[2021-11-17] MEDS: Normal Saline 1,000 ML 1000 ML IV ×2 (19:47→20:56)
[2021-11-17 19:48] LABS: Abs Immature Grans 0.07 10^3/uL (0.0-0.06); Absolute Basophil Count 0.06 10^3/uL (0.0-0.2); Basophils % 0.4; Eosinophils % 0.3; HCT 41.2 % (36.0-46.0); HGB 14.7 g/dL (11.2-15.7); Immature Grans % 0.4; Lymphocytes % 25.9; MCH 30.9 pg (27.0-33.0); MCHC 35.7 % (32.0-36.0); MCV 87 fL (80-95); MPV 9.6 fL (8.0-11.0); Platelet Count 411 10^3/uL (130-400); RBC 4.76 10^6/uL (3.93-5.22); RDW-SD 38.3 fL; WBC 15.73 10^3/uL (4.4-10.8)
[2021-11-17 19:50] LABS: Absolute Eosinophil Count 0.05 10^3/uL (0.0-0.7); Absolute Lymphocyte Count 4.07 10^3/uL (1.2-3.4); Absolute Monocyte Count 1.57 10^3/uL (0.1-0.8); Absolute Neutrophil Count 9.91 10^3/uL (1.2-6.7)
--- NOTE | 2021-11-17 20:00 | RT.EKG_ITS ---
APPROVED REPORT Exam: Resting ECG Reason for Exam: hypokalemia Patient Location: E HR:91 bpm ECG Measurements Heart Rate 91 AXIS TX 155 P 63 QRSd 88 QRS 15 QT 349 T 4 QTc 430 Conclusion Sinus rhythm...normal P axis, V-rate 60- 99 Probable left atrial enlargement...P >50mS, <-0.10mV V1
[2021-11-17 20:02] LABS: ALT 28 U/L (14-59); AST 20 U/L (15-37); Albumin 3.6 g/dL (3.4-5.0); Alkaline Phosphatase 111 U/L (46-116); Anion Gap 11.2 mmol/L (3-11); BUN 10 mg/dL (7-18); Bilirubin, Total 0.7 mg/dL (0.2-1.0); CO2 27.8 mmol/L (21.0-32.0); CREATININE 0.6 mg/dL (0.55-1.02); Calcium 8.9 mg/dL (8.5-10.1); Chloride 93 mmol/L (98-107); Glucose 245 mg/dL (74-106); Lipase 91 U/L (73-393); Sodium 132 mmol/L (136-145); Total Protein 7.5 g/dL (6.4-8.2)
[2021-11-17 20:04] LABS: Potassium 2.8 mmol/L (3.5-5.1)
--- NOTE | 2021-11-17 20:22 | NUR.NOTE ---
Referral to Care Management establish pcp f/u in 1-2 weeks, diabetic toe cellulitis.Nursing Note:
[2021-11-17] MEDS: Potassium Chloride 20 MEQ TABCR 40 MEQ PO (20:23)
[2021-11-17 20:25] LABS: Diff Comment Agrees w/ Instrument
[2021-11-17] MEDS: POTASSIUM CHLORIDE 10 MEQ/100 ML BAG 100 MEQ IVPB (20:25)
[2021-11-17 20:26] LABS: RBC Morphology Normal
[2021-11-17 22:23] LABS: Anion Gap 8.5 mmol/L (3-11); BUN 8 mg/dL (7-18); CO2 27.5 mmol/L (21.0-32.0); CREATININE 0.6 mg/dL (0.55-1.02); Calcium 8.4 mg/dL (8.5-10.1); Chloride 96 mmol/L (98-107); Glucose 219 mg/dL (74-106); Potassium 3.3 mmol/L (3.5-5.1); Sodium 132 mmol/L (136-145)
--- NOTE | 2021-11-23 16:28 | PDOC.ERCMACT ---
- If Service Date Differs Date of service: 11/23/21 Time of Service: 16:28 Care Management Activity Note Cristy presents in the ED for diabetic toe cellulitis. CM receives a request from ED provider to assist Cristy in establishing care with a PCP. CM telephones Cristy who advises she moved to [place] from [place] approximately one year ago and has not yet transferred her care. She recently went to [facility] to sign releases and complete new patient paperwork. Once her medical records are received, they will be able to schedule her for an appointment. Cristy states she also needs a medical record technician and a therapist. A referral was made to Dr. Wright's office by the ED. CM will follow up on the status of the referral. CM will continue to follow.
== END 2021-11-17 22:40 | disposition home or self-care (01) ==
PROVIDERS: Emergency Provider Physician Assistant
DX: R11.2 Nausea with vomiting, unspecified (principal); E87.6 Hypokalemia
CPT/HCPCS: 36415; 80048; 80053; 81025; 83690; 93005; 96361; 96365; 96375; 99284; 81003; 85025; 93010; J2405; J3480

== ENCOUNTER → 2022-01-13 02:17 | Outpatient (CLI) | payer MEDICAID, SELFPAY ==
--- NOTE | 2022-01-13 | DI.MRI_ITS ---
Exam(s) MR LOWER EXTREMITY LT WO/W EXAM: MR LOWER EXTREMITY LT WO/W CLINICAL HISTORY: DM WITH ULCER L 2ND TOE X 7 MONTHS. TECHNIQUE: Multiplanar multisequence MRI was performed. COMPARISON: No exams were available for comparison FINDINGS: MR examination the forefoot was obtained utilizing multi planar imaging. Additional pre and post con trast multiplanar T1 fat sat imaging was obtained. There is an amputation of the great toe at the 1st MTP joint. Distal phalanx of the 2nd toe shows markedly decreased signal on T1 weighted imaging and increased si gnal on T2 weighted imaging. Although there is no enhancement of the distal phalanx seen on the post contrast imaging, these findings are suggestive of osteomyelitis. No other significant bony signal abnormality seen. No significant ligamentous or tendinous abnormali ty although are there is mild hammertoe deformity of the 2nd through 4th toes. IMPRESSION: The appearance is suggestive of osteomyelitis involving the distal phalanx of the 2nd toe. No other significant findings. DATA REPOSITORY:
[2022-01-13] MEDS: Normal Saline Flush 10 ML SYR 15 ML IVP (08:04)
== END ==
PROVIDERS: Visit Provider Podiatrist
DX: E11.621 Type 2 diabetes mellitus with foot ulcer (principal); M86.8X7 Other osteomyelitis, ankle and foot
CPT/HCPCS: 73720

== ENCOUNTER 2022-01-15 09:25 | Day surgery (SDC) | payer MEDICAID, SELFPAY ==
[2022-01-15 10:15] VITALS: BP 119/85; PULSE 114; RESP 16; TEMP 36.7; O2SAT 100
[2022-01-15] MEDS: Lactated Ringers 1,000 ML 80 ML IV (11:01)
[2022-01-15] MEDS: ceFAZolin 2 GM/50 ML BAG IVPB (11:58)
[2022-01-15] MEDS: Bupivacaine 0.5% Pres-Free 30 ML VIAL (12:10)
--- NOTE | 2022-01-15 12:40 | W.PM.DS.N ---
Date of service: 01/15/22 Time of Service: 12:40 Discharge Plan Disposition Patient Disposition: HOME Condition: Good Discharge Details Reason For Visit: osteomyelitis, left 2nd toe Attending Provider: Blake Wright Primary Care Provider: Jewels,Local Home Meds and New Rx's Prescriptions: New amoxicillin-pot clavulanate 875-125 mg tablet 1 tab PO Q12H Qty: 30 0RF Continued gabapentin 300 mg Tablet 300 - 900 mg PO DIRECTED Rx Instructions: 300 qam 900 hs lorazepam 0.5 mg Tablet 0.5 mg PO BID PRN insulin glargine 100 unit/mL Cartridge 40 unit SUBCUT DAILY Jardiance 10 mg Tablet 10 mg PO DAILY omeprazole 20 mg capsule,delayed release(DR/EC) 40 mg PO DAILY Qty: 60 0RF metoclopramide HCl [Reglan] 10 mg tablet 10 mg PO Q6H PRNQty: 10 0RF sulfamethoxazole-trimethoprim 800-160 mg tablet 1 tab PO Q12H Label Comments: TAKE 1 TABLET BY MOUTH EVERY 12 HOURS UNTIL GONE mupirocin 2 % ointment 1 applic TOPICAL DAILY Label Comments: APPLY OINTMENT TOPICALLY TO AFFECTED TOE ONCE DAILY UNTIL HEALED insulin aspart U-100 [Novolog Flexpen U-100 Insulin] 100 unit/mL (3 mL) insulin pen 9 unit SUBCUT TID Label Comments: INJECT 9 UNITS SUBCUTANEOUSLY THREE TIMES DAILY WITH MEALS insulin glargine [Lantus Solostar U-100 Insulin] 100 unit/mL (3 mL) insulin pen 40 unit SUBCUT HS Label Comments: INJECT 40 UNITS SUBCUTANEOUSLY AT BEDTIME promethazine 25 mg suppository 25 mg NV ONCE Qty: 12 0RF Rx Instructions: may repeat once in 12 hours tramadol 50 mg tablet 50 mg PO PRN PRN Label Comments: TAKE 1 TABLET BY MOUTH EVERY 6 HOURS NEEDED FOR PAIN - DAILY MAX 4 TABLETS (200MG) Discharge Instructions Activity:: Elevate Remove Dressings/Wound Care:: Do Not Remove Shower/Bathe:: Cover Diet:: Carb Counting Discharge Orders Discharge Orders: Discharge Order (Routine); Ordered 01/15/22 Ordered By: Blake Wright DS: Summary Time Spent with Patient providing and/or coordinating discharge services: Less than 30 minutes Status at Discharge Functional status at discharge: independent ambulation Overall status at discharge: patient is back to baseline Mental Status: mental status grossly normal Speech and Movement: speech and movement normal Mood: congruent mood Affect: normal affect Exam Psych Mental Status: mental status grossly normal Speech and Movement: speech and movement normal Mood: congruent mood Affect: normal affect DS: Data Vitals/I&O Vitals and I&O: Vital Signs Temperature 36.7 C 01/15/22 10:15 Pulse 114 H 01/15/22 10:15 Pulse Rhythm Regular 01/15/22 10:15 Respiratory Rate 16 01/15/22 10:15 Respiratory Depth Normal 01/15/22 10:15 Blood Pressure 119/85 01/15/22 10:15 Pulse Oximetry 100 01/15/22 10:15 Oxygen Delivery Method Room Air 01/15/22 10:15 Oxygen Flow Rate 0 01/15/22 10:15 Pain Level 8 01/15/22 10:15 Intake & Output 01/14/22 01/15/22 01/15/22 18:59 06:59 18:59 Weight 94 kg [facility] All Active Problems Vomiting (Acute) Gastroparesis (Chronic) Vomiting (Acute) Acute dehydration (Acute) Nausea and vomiting (Acute) IDDM (insulin dependent diabetes mellitus) (Chronic) Tobacco abuse (Acute) Cannabinoid hyperemesis syndrome (Acute) DVT prophylaxis (Acute) Discharge planning issues (Acute) Upper GI bleeding (Acute) UTI (urinary tract infection) (Acute) Medical History Anxiety and depression Diabetes Type 1 Diabetic neuropathy History of cellulitis toe Suicide attempt Surgical History Amputation of left great toe H/O tubal ligation Family History Paternal Grandmother Heart disease Diabetes Maternal Aunt Hypertension Breast cancer maternal great aunt Maternal Grandfather Hypertension Maternal Grandmother Breast cancer Maternal Aunt No problems noted. Maternal Cousin Breast cancer Maternal Cousin Breast cancer Maternal Cousin Breast cancer Social History Smoking/Tobacco Use Status: Current every day Tobacco Type: cigarettes Smoking risk assessment performed?: Yes Alcohol Intake: never Drug use: Socially Substance use type: marijuana Do you feel safe at home: Yes Do you feel safe in your relationship?: Yes
[2022-01-15 12:43] VITALS: BP 114/77; PULSE 104; RESP 16; TEMP 37; O2SAT 98
--- NOTE | 2022-01-15 12:46 | W.PM.OP ---
Date of service: 01/15/22 Time of Service: 12:46 Operative Note Operative Note DATE OF PROCEDURE: 01/15/22 PRE-OP DIAGNOSIS: Osteomyelitis left second toe PROCEDURE: Amputation left second toe through the proximal phalanx SURGEON: Blake Wright Refer to Anesthesia Record ESTIMATED BLOOD LOSS: 1 PATHOLOGY: none sent COMPLICATIONS: None Patient was transported to: same day Indications: 36-year-old diabetic female with ulceration at the distal tip of the left second toe with radiologic and MRI findings consistent with osteomyelitis affecting the distal phalanx. She is being brought to the OR for amputation of the left second toe. She understands risk and complications of surgery pertaining to pain, scarring, infection, wound dehiscence, neurologic injury, revisional procedures if she fails to thrive. All questions have been answered in detail. Informed consent been obtained. Procedure Description: Girish was brought to the operative suite placed in supine position with a left foot prepped and draped in usual sterile podiatric fashion. Timeout was performed for safe surgery. Anesthesia was achieved with 7 cc 50: 50 mixture 1% lidocaine with epinephrine, 0.5% Marcaine plain. Attention was directed to the second toe where a dorsal and plantar flaps were raised so as to afford an amputation leaving the proximal phalanx. The flaps were raised dorsally and plantarly the extensor and flexor tendons were severed followed by release of the joint capsule at the PIPJ utilizing a #15 scalpel. The distal component of the second toe was removed from the operative field at the level of amputation the tissue appeared healthy there was no purulence identified. The wound was copiously irrigated with normal saline and the extensor and flexor tendons were repaired end-to-end over the proximal phalangeal distal stump with 4-0 Vicryl the skin was then coapted with far near near far suture technique of 3-0 nylon interspersed with simple interrupted suture of 4-0 nylon the skin edges came together nicely without undue stress the wound was subsequently dressed with Xeroform gauze fluff compression dressings. Sharp and sponge counts were correct vital signs remained stable. Cristy left the OR with vital signs stable vascular status intact will be followed by myself in the office next week thank you Dictated with Jany naturally speaking not reviewed for good humor vendor accuracy
--- NOTE | 2022-01-15 13:03 | SUR.INTRAOP ---
pt arrived via stretcher v/s obtained 74 16 96/63 99%RA
== END 2022-01-15 13:14 | disposition home or self-care (01) ==
PROVIDERS: Visit Provider Podiatrist
PROC: (CPT 28825; principal; 2022-01-15 11:00)
DX: E11.621 Type 2 diabetes mellitus with foot ulcer (principal); M86.172 Other acute osteomyelitis, left ankle and foot
CPT/HCPCS: 28825; 81025; J0690

== ENCOUNTER 2022-01-30 06:14 | Emergency (ER) | payer MEDICAID, SELFPAY ==
[2022-01-30 06:21] VITALS: BP 136/73; PULSE 122; RESP 20; TEMP 36.5; O2SAT 96
[2022-01-30] MEDS: Normal Saline Flush 10 ML SYR IVP (06:30)
--- NOTE | 2022-01-30 06:32 | ED.GENADUL_ITS ---
Discharge Plan Disposition Patient Disposition: HOME Condition: Stable Discharge Details Clinical Impression: Nausea and vomiting Primary Care Provider: Unknown,Unknown ED Provider: Carrington Mera Home Meds and New Rx's Prescriptions: Continued gabapentin 300 mg Tablet 300 - 900 mg PO DIRECTED Rx Instructions: 300 qam 900 hs lorazepam 0.5 mg Tablet 0.5 mg PO BID PRN Jardiance 10 mg Tablet 10 mg PO DAILY omeprazole 20 mg capsule,delayed release(DR/EC) 40 mg PO DAILY Qty: 60 0RF metoclopramide HCl [Reglan] 10 mg tablet 10 mg PO Q6H PRNQty: 10 0RF mupirocin 2 % ointment 1 applic TOPICAL DAILY Label Comments: APPLY OINTMENT TOPICALLY TO AFFECTED TOE ONCE DAILY UNTIL HEALED insulin aspart U-100 [Novolog Flexpen U-100 Insulin] 100 unit/mL (3 mL) insulin pen 9 unit SUBCUT TID Label Comments: INJECT 9 UNITS SUBCUTANEOUSLY THREE TIMES DAILY WITH MEALS insulin glargine [Lantus Solostar U-100 Insulin] 100 unit/mL (3 mL) insulin pen 40 unit SUBCUT HS Label Comments: INJECT 40 UNITS SUBCUTANEOUSLY AT BEDTIME amoxicillin-pot clavulanate 875-125 mg tablet 1 tab PO Q12H Qty: 30 0RF promethazine 25 mg suppository 25 mg DE ONCE Qty: 12 0RF Rx Instructions: may repeat once in 12 hours tramadol 50 mg tablet 50 mg PO PRN PRN Label Comments: TAKE 1 TABLET BY MOUTH EVERY 6 HOURS NEEDED FOR PAIN - DAILY MAX 4 TABLETS (200MG) Discharge Instructions Instructions: Acute Nausea and Vomiting (ED) Additional Instructions: follow up with your primary care provider within 1 week if you feel more ill, have severe worsening pain or persistent vomit return to the emergency department Medical Decision Making 36 yo female with hx of iddm, prior frequent episodes of n/v and has been diagnosed with gastroparesis and also in the chart cannabinoid hyperemesis syndrome comes in with n/v since last night around 4pm. She states it feels similar to her prior episodes of n/v. She denies fevers, chest pain, sob. She does have epigastric pain that she has had in the past with similar presentations. She arrives stable, appears tired in no distress. She has a soft abdomen with tenderness to the upper abdomen, no guarding or rebound. Suspect gastroparesis vs cyclic vomit. Has tried taking zofran and reglan at home. Will give ivf and treat with droperidol, and also obtain vbg, cbc, cmp, lipase. Doubt dka but will obtain vbg and urinalysis. She has had similar pain in the past, will hold on ct, if no improvement with droperidol will consider ct to evaluate for surgical pathology such as sbo labs benign other than wbc of 18 and has similar leukocytosis in the past and suspect stress response no acidosis on vbg so doubt dka, no significant electrolyte abnormality, just provided ua. She is feeling better and wants to try taking po, will provide water and reassess. ua still pending but she denies any urinary symptoms, tolerated po and has no n/v requesting d/c. no abdomen tenderness on exam. She is stable for d/c, suspect gastroparesis vs cyclic vomit, advised f/u with pcp and return precautions given Differential Diagnosis Differential Diagnosis: gastroparesis, cyclic vomit Medical Records Medical records reviewed: Yes I reviewed the patient's medical records. Lab Data Lab results reviewed: Yes I reviewed the patient's lab results. HPI General Mode of arrival: ambulatory . Date/Time Provider Initiated Documentation: 01/30/22 06:14 . Limitations to Documentation: no limitations . Information obtained by: patient . History of Present Illness 36 year old F presents to the emergency department with the chief complaint of n/v, described as moderate, Patient started experiencing this day(s) (1) and it has been constant. No relieving factors improve symptom(s), No exacerbating factors reported . Patient notes no other symptoms.. Related Data Home Medications Medication Instructions Recorded Confirmed gabapentin 300 mg tablet 300 - 900 mg PO DIRECTED 01/24/21 01/30/22 lorazepam 0.5 mg tablet 0.5 mg PO BID PRN 01/24/21 01/30/22 empagliflozin 10 mg tablet 10 mg PO DAILY 01/28/21 01/30/22 (Jardiance) omeprazole 20 mg capsule,delayed 40 mg PO DAILY #60 caps 01/28/21 01/30/22 release promethazine 25 mg rectal 25 mg DE ONCE #12 ea 03/08/21 01/30/22 suppository tramadol 50 mg tablet 50 mg PO PRN PRN 09/12/21 01/30/22 metoclopramide HCl 10 mg tablet 10 mg PO Q6H PRN #10 tabs 11/17/21 01/28/22 (Reglan) insulin aspart U-100 100 unit/mL 9 unit subcut TID 01/14/22 01/30/22 (3 mL) subcutaneous pen (Novolog Flexpen U-100 Insulin aspart) insulin glargine 100 unit/mL (3 40 unit subcut HS 01/14/22 01/30/22 mL) subcutaneous pen (Lantus Solostar U-100 Insulin) mupirocin 2 % topical ointment 1 applic topical DAILY 01/14/22 01/28/22 amoxicillin 875 mg-potassium 1 tab PO Q12H infection #30 tabs 01/15/22 01/28/22 clavulanate 125 mg tablet Previous Rx's Medication Instructions Recorded omeprazole 20 mg capsule,delayed 40 mg PO DAILY #60 caps 01/28/21 release promethazine 25 mg rectal 25 mg DE ONCE #12 ea 03/08/21 suppository metoclopramide HCl 10 mg tablet 10 mg PO Q6H PRN #10 tabs 11/17/21 (Reglan) amoxicillin 875 mg-potassium 1 tab PO Q12H infection #30 tabs 01/15/22 clavulanate 125 mg tablet Allergies Allergy/AdvReac Type Severity Reaction Status Date / Time ibuprofen [From Advil] Allergy Severe throat Unverified 01/30/22 06:24 closes pomegranate Allergy Severe Anaphylaxis Verified 01/30/22 06:24 citalopram AdvReac Severe Bodily harm Verified 01/30/22 06:24 General Stated Complaint: Nausea/Vomit/Diar ARNOLD: 3 Review of Systems All systems reviewed & are unremarkable except as noted in HPI and below Constitutional Constitutional: Denies chills, Denies fever(s) and Denies weakness Eyes Eyes: Denies loss of vision ENT Ears, Nose, Mouth, and Throat: Denies change in voice Cardiovascular Cardiovascular: Denies chest pain and Denies dyspnea Respiratory Respiratory: Denies cough and Denies dyspnea Musculoskeletal Musculoskeletal: Denies joint swelling Neurologic Neurologic: Denies loss of vision and Denies weakness PFSH All Active Problems (Updated 01/30/22 @ 07:14 by Carrington Mera MD) Vomiting (Acute) Gastroparesis (Chronic) Vomiting (Acute) Acute dehydration (Acute) Nausea and vomiting (Acute) IDDM (insulin dependent diabetes mellitus) (Chronic) Tobacco abuse (Acute) Cannabinoid hyperemesis syndrome (Acute) DVT prophylaxis (Acute) Discharge planning issues (Acute) Upper GI bleeding (Acute) UTI (urinary tract infection) (Acute) Medical History Anxiety and depression Diabetes Type 1 Diabetic neuropathy History of cellulitis toe Suicide attempt Surgical History Amputation of left great toe H/O tubal ligation Family History Paternal Grandmother Heart disease Diabetes Maternal Aunt Hypertension Breast cancer maternal great aunt Maternal Grandfather Hypertension Maternal Grandmother Breast cancer Maternal Aunt No problems noted. Maternal Cousin Breast cancer Maternal Cousin Breast cancer Maternal Cousin Breast cancer Social History Smoking/Tobacco Use Status: Current every day Tobacco Type: cigarettes Smoking risk assessment performed?: Yes Alcohol Intake: never Drug use: Socially Substance use type: marijuana Do you feel safe at home: Yes Do you feel safe in your relationship?: Yes Exam Const General: no acute distress Orientation: alert HENMT Head: normal to inspection Ears: external ears normal General nose exam: external nose normal Mouth: moist mucous membranes Eyes General: appearance normal, both eyes and all related structures Neck Neck: normal visual inspection Resp Effort & Inspection: normal respiratory effort and able to speak in complete sentences Cardio Rate: regular rate GI Palpation: soft Skin General skin exam: no rashes or lesions noted Neuro General: patient alert and patient oriented x3 Extrem General: normal to inspection Psych Mental Status: mental status grossly normal Course Vital Signs Vital signs: Vital Signs Temperature 36.5 C 01/30/22 06:21 Pulse 122 H 01/30/22 06:21 Respiratory Rate 20 01/30/22 06:21 Blood Pressure 136/73 01/30/22 06:21 Pulse Oximetry 96 01/30/22 06:21 Temperature 36.5 C 01/30/22 06:21 Temperature Source Skin 01/30/22 06:21 Pulse 122 H 01/30/22 06:21 Respiratory Rate 20 01/30/22 06:21 Respiratory Effort Non-Labored 01/30/22 06:27 Blood Pressure 136/73 01/30/22 06:21 Blood Pressure Position Supine 01/30/22 06:21 Pulse Oximetry 96 01/30/22 06:21 Oxygen Delivery Method Room Air 01/30/22 06:21 Oxygen Flow Rate 0 01/30/22 06:21
[2022-01-30] MEDS: Normal Saline 1,000 ML 1000 ML IV (06:40)
[2022-01-30] MEDS: Droperidol 5 MG/2 ML VIAL 2.5 MG IVP (06:40)
[2022-01-30 06:42] LABS: BE (Venous) 8 mmol/L (-2-3); HCO3 (Venous) 32 mmol/L (23-28); O2 Sat (Venous) 80 %; TCO2 (Venous) 27 mmol/L (24-29); pCO2 (Venous) 45 mmHg (41-51); pH (Venous) 7.46 (7.31-7.41); pO2 (Venous) 44 mmHg
[2022-01-30 06:43] LABS: Abs Immature Grans 0.06 10^3/uL (0.0-0.06); Absolute Basophil Count 0.04 10^3/uL (0.0-0.2); Absolute Lymphocyte Count 1.76 10^3/uL (1.2-3.4); Absolute Neutrophil Count 16.13 10^3/uL (1.2-6.7); Basophils % 0.2; HGB 15.7 g/dL (11.2-15.7); Immature Grans % 0.3; Lymphocytes % 9.5; MCHC 34.9 % (32.0-36.0); MCV 89 fL (80-95); MPV 9.6 fL (8.0-11.0); Platelet Count 419 10^3/uL (130-400); RBC 5.06 10^6/uL (3.93-5.22); RDW 11.9 % (11.7-14.6); RDW-SD 38.8 fL; WBC 18.54 10^3/uL (4.4-10.8)
[2022-01-30 06:44] LABS: Absolute Monocyte Count 0.56 10^3/uL (0.1-0.8)
[2022-01-30 06:57] LABS: Lipase 105 U/L (73-393)
[2022-01-30 07:00] LABS: ALT 30 U/L (14-59); AST 14 U/L (15-37); Albumin 4.2 g/dL (3.4-5.0); Alkaline Phosphatase 120 U/L (46-116); Anion Gap 14.2 mmol/L (3-11); BUN 16 mg/dL (7-18); Bilirubin, Total 0.4 mg/dL (0.2-1.0); CO2 30.8 mmol/L (21.0-32.0); CREATININE 0.9 mg/dL (0.55-1.02); Chloride 96 mmol/L (98-107); Glucose 410 mg/dL (74-106); Magnesium 1.9 mg/dL (1.8-2.4); Potassium 3.4 mmol/L (3.5-5.1); Sodium 141 mmol/L (136-145); Total Protein 8.8 g/dL (6.4-8.2)
[2022-01-30 07:29] LABS: Bilirubin Negative (Negative); Blood Negative (Negative); Clarity Sl Cloudy (Clear); Glucose 500 mg/dL (Negative); Ketones >=160 mg/dL (Negative); Leukocyte Esterase Negative (Negative); Nitrite Negative (Negative); Urobilinogen 0.2 EU/dL (Up TO 0.2)
[2022-01-30 07:45] LABS: Bacteria Rare HPF (Negative); C & S Indicated? No/Sq. Contamination; Casts 0-2 Hyaline LPF (Negative); Crystals Negative HPF (Negative); Epithelial Cells Moderate HPF (Negative); Mucus Moderate (Negative); RBC Negative HPF (0-2); WBC Negative HPF (0-5)
[2022-01-30 07:58] VITALS: BP 134/89; PULSE 103; RESP 20; TEMP 36.6
== END 2022-01-30 07:59 | disposition home or self-care (01) ==
PROVIDERS: Emergency Provider Emergency Medicine
DX: E10.43 Type 1 diabetes mellitus with diabetic autonomic (poly)neuropathy (principal); K31.84 Gastroparesis; F12.90 Cannabis use, unspecified, uncomplicated; D72.829 Elevated white blood cell count, unspecified; F17.210 Nicotine dependence, cigarettes, uncomplicated
CPT/HCPCS: 36415; 80053; 81025; 82805; 83690; 96361; 96374; 99284; 81003; 81015; 83735; 85025; J1790

== ENCOUNTER 2022-01-31 21:29 | Inpatient (IN) | payer MEDICAID, SELFPAY ==
[2022-01-31 21:35] VITALS: BP 128/90; PULSE 116; RESP 18; TEMP 37; O2SAT 95
[2022-01-31] MEDS: Normal Saline 1,000 ML 1000 ML IV (21:52)
[2022-01-31 21:58] LABS: Source Nasal/Nares
[2022-01-31 21:58] LABS: Abs Immature Grans 0.09 10^3/uL (0.0-0.06); Absolute Lymphocyte Count 4.06 10^3/uL (1.2-3.4); Absolute Monocyte Count 1.92 10^3/uL (0.1-0.8); Basophils % 0.3; Eosinophils % 0.1; HCO3 (Venous) 39 mmol/L (23-28); HCT 44.6 % (36.0-46.0); HGB 16.1 g/dL (11.2-15.7); Immature Grans % 0.4; Lymphocytes % 19.1; MCH 31.3 pg (27.0-33.0); MCHC 36.1 % (32.0-36.0); MCV 87 fL (80-95); MPV 9.6 fL (8.0-11.0); Neutrophils % 71.1; O2 Sat (Venous) 91 %; Platelet Count 455 10^3/uL (130-400); RBC 5.15 10^6/uL (3.93-5.22); RDW 11.6 % (11.7-14.6); RDW-SD 37.4 fL; TCO2 (Venous) 33 mmol/L (24-29); WBC 21.28 10^3/uL (4.4-10.8); pCO2 (Venous) 46 mmHg (41-51); pH (Venous) 7.54 (7.31-7.41); pO2 (Venous) 57 mmHg
--- NOTE | 2022-01-31 22:00 | DI.CT_ITS ---
Exam(s) CT ABDOMEN PELVIS W EXAM: CT ABDOMEN PELVIS W CLINICAL HISTORY: abdominal pain, n/v TECHNIQUE: Imaging Protocol: Axial computed tomography images with coronal and sagittal reformatted images were created and reviewed CONTRAST MATERIAL: Intravenous: Omnipaque 350 Contrast volume:100 mL COMPARISON: CT CT CHEST/ABD/PEL W from 01/28/2021 FINDINGS: ABDOMEN: Lung Bases: Normal where visualized. There is [id number] thickening of the distal esophagus. Liver: Normal density. No measurable mass. Portal, Superior Mesenteric, and Splenic Veins: Unremarkable. Gallbladder and Biliary Tract: No radiodense calculus or dilation. Pancreas: Normal density, no abnormal calcifications or inflammatory process. Spleen: Normal. Adrenals: No masses seen. Kidneys: Normal size, contour and axis. There is a nonobstructing 2 mm stone in the midpole of the le ft kidney. No masses seen. Abdominal Aorta: Abdominal portion non-dilated. Bowel: No evidence of bowel obstruction. There is mild apparent thickening of the wall of the distal transverse colon. This may be due to underdistention. No significant pericolonic inflammatory haddad ges are seen. Colitis cannot be entirely excluded. Appendix is unremarkable. Peritoneal Cavity: No ascites, collection or mesenteric inflammatory response. No free air. Lymph Nodes: Within normal limits. Bones: Within normal limits for the patient's age. Soft Tissues: Unremarkable. PELVIS: Bladder: Symmetric distention, no gross wall thickening. Reproductive Organs: Unremarkable as visualized. Lymph Nodes: Within normal limits. Bones: Within normal limits for the patient's age. IMPRESSION: 1. Sslr-aj-gbqhojex thickening of the wall of the distal esophagus. This may represent an esophagiti s. Please correlate clinically. 2. Mild thickening of the wall of the distal transverse colon. This may be due to underdistention. Colitis may also be considered. RADIATION DOSE DELIVERED: 1,209.8mGy.cm Total DLP DATA REPOSITORY: All CT scans at this facility are submitted to the National Radiology Data Registry (NRDR) Dose Index Registry (DIR) with the [employer] ([employer]). RADIATION OPTIMIZATION: All CT scans at this facility use at least one of these dose optimization te chniques: automated exposure control; mA and/or kV adjustment per patient size (includes targeted exa ms where dose is matched to clinical indication); or iterative reconstruction.
[2022-01-31 22:02] LABS: Bilirubin Small (Negative); Blood Negative (Negative); Clarity Cloudy (Clear); Glucose 500 mg/dL (Negative); Ketones >=160 mg/dL (Negative); Leukocyte Esterase Negative (Negative); Nitrite Negative (Negative)
--- NOTE | 2022-01-31 22:04 | W.ED.GENAD ---
Discharge Plan Disposition Patient Disposition: [facility] INPATIENT Condition: Stable Discharge Details Clinical Impression: Nausea and vomiting, Hypokalemia, Hypomagnesemia Primary Care Provider: Unknown,Unknown ED Provider: Carrington Mera Home Meds and New Rx's Prescriptions: No Action gabapentin 300 mg Tablet 300 - 900 mg PO DIRECTED Rx Instructions: 300 qam 900 hs lorazepam 0.5 mg Tablet 0.5 mg PO BID PRN Jardiance 10 mg Tablet 10 mg PO DAILY omeprazole 20 mg capsule,delayed release(DR/EC) 40 mg PO DAILY Qty: 60 0RF metoclopramide HCl [Reglan] 10 mg tablet 10 mg PO Q6H PRNQty: 10 0RF mupirocin 2 % ointment 1 applic TOPICAL DAILY Label Comments: APPLY OINTMENT TOPICALLY TO AFFECTED TOE ONCE DAILY UNTIL HEALED insulin aspart U-100 [Novolog Flexpen U-100 Insulin] 100 unit/mL (3 mL) insulin pen 9 unit SUBCUT TID Label Comments: INJECT 9 UNITS SUBCUTANEOUSLY THREE TIMES DAILY WITH MEALS insulin glargine [Lantus Solostar U-100 Insulin] 100 unit/mL (3 mL) insulin pen 40 unit SUBCUT HS Label Comments: INJECT 40 UNITS SUBCUTANEOUSLY AT BEDTIME amoxicillin-pot clavulanate 875-125 mg tablet 1 tab PO Q12H Qty: 30 0RF promethazine 25 mg suppository 25 mg NV ONCE Qty: 12 0RF Rx Instructions: may repeat once in 12 hours tramadol 50 mg tablet 50 mg PO PRN PRN Label Comments: TAKE 1 TABLET BY MOUTH EVERY 6 HOURS NEEDED FOR PAIN - DAILY MAX 4 TABLETS (200MG) Medical Decision Making 36 yo female with hx of iddm and gastroparesis comes in with continued n/v. She has had n/v for several days and was seen yesterday, had labs which showed wbc of 18 and has leukocytosis when she has episodes of n/v and gets this frequently. She felt better after droperidol and was discharged and comes back with return of n/v despite zofran and promethazine. She denies fevers, chills, dyspnea, chest pressure. She denies severe abdominal pain and on exam her abdomen is nondistended but is tender in the mid abdomen, no guarding or rebound. Suspect cyclic vomit vs gastroparesis, will obtain cbc, cmp, lipase and given continued symptoms ct abd/pelvis though suspicion for surgical pathology such as sbo or cholecystitis is low. pt stable though still not tolerating po, labs show k of 2.[address] shows mild colitis, possible esophagitis otherwise no acute findings. Given the electrolyte abnormalities and inability to take po will discuss with hospitalist about admission Differential Diagnosis Differential Diagnosis: gastroparesis, sbo Imaging Data Radiologic Study: Attestation: I personally reviewed and interpreted this imaging study as follows: Imaging: CT Scan Radiologist's impression: IMPRESSION: 1. Suspect mild changes of colitis in the mid and distal colon. No evidence of perforation or abscess. 2. There is moderate distal esophageal wall thickening which could represent reactive changes/edema from clinically described recent vomiting, versus moderate esophagitis. No evidence of perforation. 3. There is a 4 mm nonobstructive left renal stone. No ureteral stones or hydronephrosis. 4. Hepatomegaly and mild fatty infiltration of the liver. 5. Additional nonemergent findings detailed above. Lab Data Lab results reviewed: Yes I reviewed the patient's lab results. HPI General Mode of arrival: ambulatory. Date/Time Provider Initiated Documentation: 01/31/22 21:34. Limitations to Documentation: no limitations. Information obtained by: patient. History of Present Illness 36 year old F presents to the emergency department with the chief complaint of n/v , described as moderate, Patient reports no radiation. Patient started experiencing this day(s) (3) and it has been constant. No relieving factors improve symptom(s), No exacerbating factors reported . Patient notes denies fever/chills. Related Data Home Medications Medication Instructions Recorded Confirmed gabapentin 300 mg tablet 300 - 900 mg PO DIRECTED 01/24/21 01/31/22 lorazepam 0.5 mg tablet 0.5 mg PO BID PRN 01/24/21 01/31/22 empagliflozin 10 mg tablet 10 mg PO DAILY 01/28/21 01/31/22 (Jardiance) omeprazole 20 mg capsule,delayed 40 mg PO DAILY #60 caps 01/28/21 01/31/22 release promethazine 25 mg rectal 25 mg NV ONCE #12 ea 03/08/21 01/31/22 suppository tramadol 50 mg tablet 50 mg PO PRN PRN 09/12/21 01/31/22 metoclopramide HCl 10 mg tablet 10 mg PO Q6H PRN #10 tabs 11/17/21 01/31/22 (Reglan) insulin aspart U-100 100 unit/mL 9 unit subcut TID 01/14/22 01/31/22 (3 mL) subcutaneous pen (Novolog Flexpen U-100 Insulin aspart) insulin glargine 100 unit/mL (3 40 unit subcut HS 01/14/22 01/31/22 mL) subcutaneous pen (Lantus Solostar U-100 Insulin) mupirocin 2 % topical ointment 1 applic topical DAILY 01/14/22 01/31/22 amoxicillin 875 mg-potassium 1 tab PO Q12H infection #30 tabs 01/15/22 01/31/22 clavulanate 125 mg tablet Previous Rx's Medication Instructions Recorded omeprazole 20 mg capsule,delayed 40 mg PO DAILY #60 caps 01/28/21 release promethazine 25 mg rectal 25 mg NV ONCE #12 ea 03/08/21 suppository metoclopramide HCl 10 mg tablet 10 mg PO Q6H PRN #10 tabs 11/17/21 (Reglan) amoxicillin 875 mg-potassium 1 tab PO Q12H infection #30 tabs 01/15/22 clavulanate 125 mg tablet Allergies Allergy/AdvReac Type Severity Reaction Status Date / Time ibuprofen [From Advil] Allergy Severe throat Unverified 01/31/22 21:38 closes pomegranate Allergy Severe Anaphylaxis Verified 01/31/22 21:38 citalopram AdvReac Severe Bodily harm Verified 01/31/22 21:38 General Stated Complaint: Nausea/Vomit/Diar ARNOLD: 3 Review of Systems All systems reviewed & are unremarkable except as noted in HPI and below Constitutional Constitutional: Denies chills, Denies fever(s) and Denies weakness Eyes Eyes: Denies loss of vision Cardiovascular Cardiovascular: Denies chest pain and Denies dyspnea Respiratory Respiratory: Denies cough and Denies dyspnea Genitourinary Genitourinary: Denies dysuria Musculoskeletal Musculoskeletal: Denies joint swelling Integumentary/Breasts Skin/Breast: Denies rash Neurologic Neurologic: Denies loss of vision and Denies weakness PFSH All Active Problems (Updated 01/31/22 @ 23:06 by Carrington Mera MD) Hypokalemia (Acute) Hypomagnesemia (Acute) Vomiting (Acute) Gastroparesis (Chronic) Vomiting (Acute) Acute dehydration (Acute) Nausea and vomiting (Acute) IDDM (insulin dependent diabetes mellitus) (Chronic) Tobacco abuse (Acute) Cannabinoid hyperemesis syndrome (Acute) DVT prophylaxis (Acute) Discharge planning issues (Acute) Upper GI bleeding (Acute) UTI (urinary tract infection) (Acute) Medical History Anxiety and depression Diabetes Type 1 Diabetic neuropathy History of cellulitis toe Suicide attempt Surgical History Amputation of left great toe H/O tubal ligation Family History Paternal Grandmother Heart disease Diabetes Maternal Aunt Hypertension Breast cancer maternal great aunt Maternal Grandfather Hypertension Maternal Grandmother Breast cancer Maternal Aunt No problems noted. Maternal Cousin Breast cancer Maternal Cousin Breast cancer Maternal Cousin Breast cancer Social History Smoking/Tobacco Use Status: Current every day Tobacco Type: cigarettes Smoking risk assessment performed?: Yes Alcohol Intake: never Drug use: Socially Substance use type: marijuana Do you feel safe at home: Yes Do you feel safe in your relationship?: Yes Exam Const General: no acute distress Orientation: alert HENMT Head: normal to inspection Ears: external ears normal General nose exam: external nose normal Mouth: moist mucous membranes Eyes General: appearance normal, both eyes and all related structures Neck Neck: normal visual inspection Resp Effort & Inspection: normal respiratory effort and able to speak in complete sentences Cardio Rate: regular rate GI Palpation: soft, not firm, no guarding and tender Skin General skin exam: no rashes or lesions noted Neuro General: patient alert and patient oriented x3 Extrem General: normal to inspection Psych Mental Status: mental status grossly normal Course Vital Signs Vital signs: Vital Signs Temperature 37.0 C 01/31/22 21:35 Pulse 116 H 01/31/22 21:35 Respiratory Rate 18 01/31/22 21:35 Blood Pressure 128/90 01/31/22 21:35 Pulse Oximetry 95 01/31/22 21:35 Temperature 37.0 C 01/31/22 21:35 Temperature Source Oral 01/31/22 21:35 Pulse 116 H 01/31/22 21:35 Respiratory Rate 18 01/31/22 21:35 Respiratory Effort Non-Labored 01/31/22 21:50 Blood Pressure 128/90 01/31/22 21:35 Pulse Oximetry 95 01/31/22 21:35 Pain Level 8 01/31/22 21:35 Lab/Test Results Lab/Test Results: Laboratory Tests Range/Units 01/31/22 21:56 COVID-19 Source Nasal/Nares
[2022-01-31 22:06] LABS: Absolute Basophil Count 0.06 10^3/uL (0.0-0.2); Absolute Eosinophil Count 0.02 10^3/uL (0.0-0.7); Absolute Neutrophil Count 15.13 10^3/uL (1.2-6.7)
[2022-01-31] MEDS: Ondansetron 4 MG/2 ML VIAL IVP (22:09)
[2022-01-31 22:11] LABS: BE (Venous) > 15 mmol/L (-2-3)
[2022-01-31 22:12] LABS: Bacteria Few HPF (Negative); Casts Negative LPF (Negative); Crystals Negative HPF (Negative); Epithelial Cells Many HPF (Negative); Mucus Negative (Negative); RBC 0-2 HPF (0-2)
[2022-01-31 22:13] LABS: C & S Indicated? No
[2022-01-31 22:23] LABS: Diff Comment Agrees w/ Instrument; RBC Morphology Normal
[2022-01-31 22:28] LABS: ALT 28 U/L (14-59); AST 19 U/L (15-37); Albumin 3.9 g/dL (3.4-5.0); Alkaline Phosphatase 111 U/L (46-116); Anion Gap 8.9 mmol/L (3-11); BUN 17 mg/dL (7-18); Bilirubin, Direct 0.2 mg/dL (0.0-0.2); Bilirubin, Total 0.7 mg/dL (0.2-1.0); CO2 37.1 mmol/L (21.0-32.0); CREATININE 0.9 mg/dL (0.55-1.02); Calcium 9.2 mg/dL (8.5-10.1); Chloride 83 mmol/L (98-107); Glucose 360 mg/dL (74-106); Lipase 135 U/L (73-393); Magnesium 1.5 mg/dL (1.8-2.4); Sodium 129 mmol/L (136-145); TSH (W/Ref FT4) 0.55 uIU/mL (0.36-3.74); Total Protein 8.4 g/dL (6.4-8.2)
[2022-01-31] MEDS: Omnipaque 350 MG/ML 100 ML BTL IJ (22:29)
[2022-01-31 22:32] LABS: Potassium 2.6 mmol/L (3.5-5.1)
[2022-01-31 22:35] LABS: COVID-19 PCR Negative (Negative)
[2022-01-31] MEDS: Normal Saline Flush 10 ML SYR IVP (22:35)
[2022-01-31 22:51] VITALS: BP 128/68; PULSE 88; RESP 16; O2SAT 100
[2022-01-31] MEDS: POTASSIUM CHLORIDE 20 MEQ/100 ML BAG 50 MEQ IVPB (22:52)
[2022-01-31] MEDS: MAGNESIUM SULFATE 2 GM/50 ML BAG IVPB (22:54)
[2022-01-31 23:00] VITALS: BP 132/75; PULSE 115; RESP 16; O2SAT 97
--- NOTE | 2022-01-31 23:02 | DI.VRAD_ITS ---
PROCEDURE INFORMATION: Exam: CT Abdomen And Pelvis With Contrast Exam date and time: 01/31/2022 10:30 PM Age: 36 years old Clinical indication: Abdominal pain; Generalized; Prior surgery; Surgery date: 6+ months; Surgery type: Salpingectomy; Patient HX: Abd pain, nausea and vomiting for several days; Additional info: Diabetic with HX of gastroparesis TECHNIQUE: Imaging protocol: Computed tomography of the abdomen and pelvis with contrast. Radiation optimization: All CT scans at this facility use at least one of these dose optimization techniques: automated exposure control; mA and/or kV adjustment per patient size (includes targeted exams where dose is matched to clinical indication); or iterative reconstruction. Contrast material: OMNIPAQUE 350; Contrast volume: 100 ml; Contrast route: INTRAVENOUS (IV); COMPARISON: CT CHEST/ABD/PEL W 01/28/2021 2:57 AM FINDINGS: Lungs: Visualized lung bases are clear. Heart: Heart size normal. Mediastinal space: Moderate distal esophageal wall thickening which could represent reactive changes from recent vomiting or could represent intrinsic esophagitis. No evidence of perforation. Consider nonemergent endoscopic assessment or esophagram as clinically indicated. Liver: Hepatomegaly measuring 21 cm craniocaudal. Mild generalized fatty infiltration of the liver. Normal contour. No mass lesions. No intrahepatic biliary ductal dilatation. Gallbladder and bile ducts: Normal. No calcified stones. No ductal dilation. Pancreas: Normal. No inflammatory changes or ductal dilation. Spleen: Normal. No splenomegaly. Adrenal glands: Normal. No adrenal mass. Kidneys and ureters: No acute abnormalities. No hydronephrosis or hydroureter. 4 mm nonobstructive left renal stone. No ureteral stones. Stomach and bowel: The stomach is unremarkable. The small bowel is nondilated with no gross abnormality. Question mild colonic wall thickening in the mid and distal colon with faint adjacent stranding, suggesting mild colitis. No evidence of perforation or abscess. Appendix: The appendix is normal in caliber and demonstrates no evidence of appendicitis. Intraperitoneal space: No free fluid or air. Vasculature: No acute process. No abdominal aortic aneurysm. Lymph nodes: No adenopathy. Urinary bladder: Unremarkable as visualized. Reproductive: Unremarkable as visualized. Bones/joints: No acute osseous abnormalities. Chronic broad shallow 4 mm posterior annular protrusion L4-L5 with moderate disc space narrowing and mild canal stenosis unchanged. Soft tissues: Unremarkable. IMPRESSION: 1. Suspect mild changes of colitis in the mid and distal colon. No evidence of perforation or abscess. 2. There is moderate distal esophageal wall thickening which could represent reactive changes/edema from clinically described recent vomiting, versus moderate esophagitis. No evidence of perforation. 3. There is a 4 mm nonobstructive left renal stone. No ureteral stones or hydronephrosis. 4. Hepatomegaly and mild fatty infiltration of the liver. 5. Additional nonemergent findings detailed above. Dictated and Authenticated by: Fermin Marc MD. Ordering:CASS Shultz MD
[2022-01-31 23:30] VITALS: BP 119/68; PULSE 115; RESP 16; O2SAT 96
--- NOTE | 2022-01-31 23:37 | HPE_ITS ---
Date of service: 01/31/22 Time of Service: 23:37 Assessment and Plan Assessment and plan (1) Nausea and vomiting: Start date: 01/31/22 Status: Acute Assessment and plan: Jennifer is a 36-year-old lady with recurrent symptoms of nausea with vomiting with the patient have a history of gastroparesis though she has not had diabetes for very long time by history. She has lost weight and overall is doing well with diabetes control by history. She will have bowel rest with antiemetics and PPI along with IV hydration. She will have her electrolytes repleted. Lab in the morning. (2) Acute dehydration: Start date: 01/31/22 Status: Acute Assessment and plan: IV hydration with normal saline to treat dehydration and hyponatremia. Follow- up labs adjusting as needed. Advance diet from clear fluids as tolerated. (3) Hyponatremia: Start date: 01/31/22 Status: Acute Assessment and plan: IV hydration with normal saline to treat dehydration and hyponatremia. Follow- up labs adjusting as needed. Advance diet from clear fluids as tolerated. (4) Hypokalemia: Start date: 01/31/22 Status: Acute Assessment and plan: Replete with IV supplement and follow-up lab in the morning. (5) Hypomagnesemia: Start date: 01/31/22 Status: Acute Assessment and plan: Replete with IV supplement and follow-up lab in the morning. (6) Type 2 diabetes mellitus: Status: Chronic Assessment and plan: Patient has diagnosis of insulin-dependent diabetes mellitus on her list though she appears to have had pzw-[id number] diabetes mellitus without ketoacidosis and on oral therapy converted to present medical regimen with good control having lost weight. Continue glucometers before meals and at bedtime and short acting insulin coverage while hospitalized and acutely ill. Watch for hypoglycemia. History of Present Illness History of Present Illness Chief Complaint: Nausea and vomiting and unable to keep food or fluids down. Narrative: This is a 36-year-old lady who has flares of nausea and vomiting with fluid loss about every month requiring IV fluids usually in the ED and going home. She has a history of gastroparesis and diabetes which was diagnosed about a year ago with qov-mofocvd-[id number] diabetes mellitus. She lost about 300 pounds weight of 195 pounds presently and is on oral therapy with insulin. She is not truly insulin-dependent. She presented to the ED this time with several days of nausea and vomiting and had leukocytosis which appeared to be worsening. She was seen in the ED prior to admission and was found to have hyponatremia prompting IVF resuscitation with observation. With fluids the patient was feeling slightly better and she was also feeling better with antiemetics. She usually does seem to improve quickly. Patient did receive IV potassium supplement and magnesium supplement in the ED. These labs will be followed up in the morning. She is on clear fluids and this will be advanced as tolerated. Review of Systems Narrative: 13 point review of systems otherwise unrevealing or stable. [facility] All Active Problems (Updated 02/01/22 @ 18:15 by Broderick Rubi) Type 2 diabetes mellitus (Chronic) Hyponatremia (Acute) Hypokalemia (Acute) Hypomagnesemia (Acute) Vomiting (Acute) Gastroparesis (Chronic) Vomiting (Acute) Acute dehydration (Acute) Nausea and vomiting (Acute) IDDM (insulin dependent diabetes mellitus) (Chronic) Tobacco abuse (Acute) Cannabinoid hyperemesis syndrome (Acute) DVT prophylaxis (Acute) Discharge planning issues (Acute) Upper GI bleeding (Acute) UTI (urinary tract infection) (Acute) Medical History Anxiety and depression Diabetes Type 1 Diabetic neuropathy History of cellulitis toe Suicide attempt Surgical History Amputation of left great toe H/O tubal ligation Family History Paternal Grandmother Heart disease Diabetes Maternal Aunt Hypertension Breast cancer maternal great aunt Maternal Grandfather Hypertension Maternal Grandmother Breast cancer Maternal Aunt No problems noted. Maternal Cousin Breast cancer Maternal Cousin Breast cancer Maternal Cousin Breast cancer Social History Smoking/Tobacco Use Status: Current every day Tobacco Type: cigarettes Smoking risk assessment performed?: Yes Alcohol Intake: never Drug use: Socially Substance use type: marijuana Do you feel safe at home: Yes Do you feel safe in your relationship?: Yes Meds Allergies and Home Medications Allergies Allergy/AdvReac Type Severity Reaction Status Date / Time ibuprofen [From Advil] Allergy Severe throat Unverified 01/31/22 21:38 closes pomegranate Allergy Severe Anaphylaxis Verified 01/31/22 21:38 citalopram AdvReac Severe Bodily harm Verified 01/31/22 21:38 Home Medications Medication Instructions Recorded Confirmed Type gabapentin 300 mg tablet 300 - 900 mg PO DIRECTED 01/24/21 01/31/22 History lorazepam 0.5 mg tablet 0.5 mg PO BID PRN 01/24/21 01/31/22 History empagliflozin 10 mg tablet 10 mg PO DAILY 01/28/21 01/31/22 History (Jardiance) omeprazole 20 mg capsule,delayed 40 mg PO DAILY #60 caps 01/28/21 01/31/22 Rx release promethazine 25 mg rectal 25 mg IA ONCE #12 ea 03/08/21 01/31/22 Rx suppository tramadol 50 mg tablet 50 mg PO PRN PRN 09/12/21 01/31/22 History metoclopramide HCl 10 mg tablet 10 mg PO Q6H PRN #10 tabs 11/17/21 01/31/22 Rx (Reglan) insulin aspart U-100 100 unit/mL 9 unit subcut TID 01/14/22 01/31/22 History (3 mL) subcutaneous pen (Novolog Flexpen U-100 Insulin aspart) insulin glargine 100 unit/mL (3 40 unit subcut HS 01/14/22 01/31/22 History mL) subcutaneous pen (Lantus Solostar U-100 Insulin) mupirocin 2 % topical ointment 1 applic topical DAILY 01/14/22 01/31/22 History amoxicillin 875 mg-potassium 1 tab PO Q12H infection #30 tabs 01/15/22 01/31/22 Rx clavulanate 125 mg tablet Exam Narrative Exam Narrative: General: Patient appears appropriate for age moderately obese, in no acute distress, alert and oriented x3. HEENT: Normocephalic, eyes with pupils equal and reactive light symmetrically, extraocular movement intact and sclera anicteric. Neck: Supple without JVD. Lungs: Clear to auscultation and percussion. Back: Stooped posture without CVA tenderness. Breast: Exam deferred. Heart: Regular rate and rhythm with no appreciable murmur or gallop. Abdomen: Obese contour, soft and no focalizing tenderness over the upper abdomen. No palpable hepatosplenomegaly. Bowel sounds positive in all quadrants. Genitalia/rectal: Exam deferred. Extremities: Without clubbing, cyanosis or pitting edema. Skin: Fair turgor, normal color, warm and dry. Neuro: Cranial nerves II through XII grossly intact. No focal motor deficits. Psych: Without abnormal thought processes. Mood slightly depressed and affect flattened. Remote and recent memory intact. Results Imaging Imaging Studies: Exam(s) CT ABDOMEN ? PELVIS W Date of exam: 01/31/2022 EXAM:? CT ABDOMEN ? PELVIS W CLINICAL HISTORY: ? abdominal pain, n/v ? TECHNIQUE:? Imaging Protocol: Axial computed tomography images with coronal and sagittal reformatted images were created and reviewed CONTRAST MATERIAL:? Intravenous: Omnipaque 350 Contrast volume:100 mL COMPARISON:? CT CT CHEST/ABD/PEL W from 01/28/2021 FINDINGS: ABDOMEN: Lung Bases: Normal where visualized. There is [id number] thickening of the distal esophagus. Liver: Normal density. No measurable mass. Portal, Superior Mesenteric, and Splenic Veins: Unremarkable.? Gallbladder and Biliary Tract: No radiodense calculus or dilation. Pancreas: Normal density, no abnormal calcifications or inflammatory process. Spleen: Normal. Adrenals: No masses seen. Kidneys: Normal size, contour and axis. There is a nonobstructing 2 mm stone in the midpole of the left kidney.? No masses seen. Abdominal Aorta: Abdominal portion non-dilated. Bowel: No evidence of bowel obstruction.? There is mild apparent thickening of the wall of the distal transverse colon.? This may be due to underdistention.? No significant pericolonic inflammatory changes are seen.? Colitis cannot be entirely excluded.? Appendix is unremarkable. Peritoneal Cavity: No ascites, collection or mesenteric inflammatory response.? No free air. Lymph Nodes: Within normal limits. Bones: Within normal limits for the patient's age.? Soft Tissues: Unremarkable. PELVIS: Bladder: Symmetric distention, no gross wall thickening. Reproductive Organs: Unremarkable as visualized. Lymph Nodes: Within normal limits. Bones: Within normal limits for the patient's age.? IMPRESSION: 1. Qoya-[id number] thickening of the wall of the distal esophagus.? This may represent an esophagitis.? Please correlate clinically. 2. Mild thickening of the wall of the distal transverse colon.? This may be due to underdistention.? Colitis may also be considered.? Labs Result diagrams: 02/01/22 05:54 02/01/22 14:30 Labs: Laboratory Results - last 24 hr 01/31/22 01/31/22 01/31/22 21:45 21:50 21:50 WBC 21.28 H RBC 5.15 Hgb 16.1 H Hct 44.6 MCV 87 MCH 31.3 MCHC 36.1 H RDW 11.6 L Plt Count 455 H MPV 9.6 Immature Gran % 0.4 Neutrophils % 71.1 Lymphocytes % 19.1 Monocytes % 9.0 Eosinophils % 0.1 Basophils % 0.3 Nucleated RBC % 0.0 Absolute Neutrophils 15.13 H Absolute Lymphocytes 4.06 H Absolute Monocytes 1.92 H Absolute Eosinophils 0.02 Absolute Basophils 0.06 RBC Morphology Normal VBG pH VBG pCO2 VBG pO2 VBG HCO3 VBG Total CO2 VBG O2 Saturation VBG Base Excess Sodium 129 L D Potassium 2.6 L* Chloride 83 L Carbon Dioxide 37.1 H Anion Gap 8.9 BUN 17 Creatinine 0.9 Estimated GFR/1.73 m2 >= 60.00 Glucose 360 H Calcium 9.2 Magnesium 1.5 L Total Bilirubin 0.7 Conjugated Bilirubin 0.2 AST 19 ALT 28 Alkaline Phosphatase 111 Total Protein 8.4 H Albumin 3.9 Lipase 135 TSH 0.55 Urine Color Yellow Urine Clarity Cloudy Urine pH 7.0 Ur Specific [place] 1.020 Urine Protein 30 H Urine Ketones >=160 H Urine Blood Negative Urine Nitrite Negative Urine Bilirubin Small H Urine Urobilinogen 1.0 H Ur Leukocyte Esterase Negative Urine RBC 0-2 Urine WBC 3-5 Ur Epithelial Cells Many Urine Crystals Negative Urine Bacteria Few Urine Casts Negative Urine Mucus Negative Ur Culture Indicated? No Urine Glucose 500 H COVID-19 Source SARS-CoV-2 (PCR) 01/31/22 01/31/22 21:50 21:56 WBC RBC Hgb Hct MCV MCH MCHC RDW Plt Count MPV Immature Gran % Neutrophils % Lymphocytes % Monocytes % Eosinophils % Basophils % Nucleated RBC % Absolute Neutrophils Absolute Lymphocytes Absolute Monocytes Absolute Eosinophils Absolute Basophils RBC Morphology VBG pH 7.54 H VBG pCO2 46 VBG pO2 57 VBG HCO3 39 H VBG Total CO2 33 H VBG O2 Saturation 91 VBG Base Excess > 15 H Sodium Potassium Chloride Carbon Dioxide Anion Gap BUN Creatinine Estimated GFR/1.73 m2 Glucose Calcium Magnesium Total Bilirubin Conjugated Bilirubin AST ALT Alkaline Phosphatase Total Protein Albumin Lipase TSH Urine Color Urine Clarity Urine pH Ur Specific [place] Urine Protein Urine Ketones Urine Blood Urine Nitrite Urine Bilirubin Urine Urobilinogen Ur Leukocyte Esterase Urine RBC Urine WBC Ur Epithelial Cells Urine Crystals Urine Bacteria Urine Casts Urine Mucus Ur Culture Indicated? Urine Glucose COVID-19 Source Nasal/Nares SARS-CoV-2 (PCR) Negative Last Vital Signs Temp 37.0 C 01/31/22 21:35 Pulse 88 01/31/22 22:51 Resp 16 01/31/22 22:51 BP 128/68 01/31/22 22:51 Pulse Ox 100 01/31/22 22:51
[2022-02-01] VITALS (8 sets, daily range): BP systolic 122–135; BP diastolic 83–89; PULSE 93–118; RESP 16–18; TEMP 36.7–37.2; O2SAT 94–100
[2022-02-01] MEDS: MAGNESIUM SULFATE 2 GM/50 ML BAG IVPB (00:42)
[2022-02-01] MEDS: Ondansetron 4 MG/2 ML VIAL IVP (02:26)
[2022-02-01] MEDS: Normal Saline Flush 10 ML SYR IVP ×2 (02:27→07:42)
[2022-02-01] MEDS: Metoclopramide 10 MG TAB PO (02:27)
[2022-02-01] MEDS: LORazepam 0.5 MG TAB PO (02:27)
[2022-02-01] MEDS: Normal Saline 1,000 ML 150 ML IV ×2 (02:59→10:05)
[2022-02-01] MEDS: Pantoprazole 40 MG VIAL IVP ×2 (03:01→07:41)
[2022-02-01] MEDS: Pantoprazole 40 MG VIAL (03:12)
[2022-02-01 06:39] LABS: Abs Immature Grans 0.06 10^3/uL (0.0-0.06); Absolute Lymphocyte Count 4.46 10^3/uL (1.2-3.4); Basophils % 0.3; Eosinophils % 0.5; HCT 39.5 % (36.0-46.0); HGB 14.2 g/dL (11.2-15.7); Immature Grans % 0.4; Lymphocytes % 29.2; MCH 31.1 pg (27.0-33.0); MCHC 35.9 % (32.0-36.0); MCV 86 fL (80-95); MPV 9.6 fL (8.0-11.0); Monocytes % 10.5; Neutrophils % 59.1; Platelet Count 398 10^3/uL (130-400); RBC 4.57 10^6/uL (3.93-5.22); RDW 11.9 % (11.7-14.6); RDW-SD 37.6 fL; WBC 15.28 10^3/uL (4.4-10.8)
[2022-02-01 06:51] LABS: Absolute Basophil Count 0.05 10^3/uL (0.0-0.2); Absolute Eosinophil Count 0.08 10^3/uL (0.0-0.7); Absolute Neutrophil Count 9.03 10^3/uL (1.2-6.7)
[2022-02-01 06:59] LABS: ALT 21 U/L (14-59); AST 13 U/L (15-37); Alkaline Phosphatase 86 U/L (46-116); Anion Gap 6.5 mmol/L (3-11); BUN 10 mg/dL (7-18); Bilirubin, Total 0.5 mg/dL (0.2-1.0); CO2 34.5 mmol/L (21.0-32.0); CREATININE 0.6 mg/dL (0.55-1.02); Calcium 8.2 mg/dL (8.5-10.1); Chloride 93 mmol/L (98-107); Glucose 276 mg/dL (74-106); Magnesium 2.2 mg/dL (1.8-2.4); Sodium 134 mmol/L (136-145); Total Protein 6.7 g/dL (6.4-8.2)
[2022-02-01 07:09] LABS: Potassium 2.6 mmol/L (3.5-5.1)
[2022-02-01] MEDS: Mylanta Suspension 30 ML CUP PO ×2 (07:31→10:11)
[2022-02-01] MEDS: Gabapentin 300 MG CAP PO (07:41)
[2022-02-01] MEDS: Enoxaparin 40 MG/0.4 ML SYR SC (07:42)
[2022-02-01] MEDS: POTASSIUM CHLORIDE 20 MEQ/100 ML BAG 50 MEQ IVPB ×2 (07:54→10:05)
[2022-02-01] MEDS: Insulin Aspart 300 UNITS/3 ML PEN SC ×2 (08:17→11:44)
[2022-02-01 15:25] LABS: Anion Gap 4.8 mmol/L (3-11); BUN 9 mg/dL (7-18); CO2 36.2 mmol/L (21.0-32.0); CREATININE 0.7 mg/dL (0.55-1.02); Calcium 8.4 mg/dL (8.5-10.1); Chloride 96 mmol/L (98-107); Estimated GFR 114.88 (mL/min/1.73m2); Glucose 162 mg/dL (74-106); Potassium 3.1 mmol/L (3.5-5.1); Sodium 137 mmol/L (136-145)
--- NOTE | 2022-02-01 15:30 | DSE_ITS ---
Date of service: 02/01/22 Time of Service: 15:30 DS: Diagnosis Discharge Diagnosis (1) Nausea and vomiting: Status: Acute (2) Acute dehydration: Status: Acute (3) Hyponatremia: Status: Acute (4) Hypokalemia: Status: Acute (5) Hypomagnesemia: Status: Acute (6) Type 2 diabetes mellitus: Status: Chronic Asessment and Plan: on insulin Discharge Plan Disposition Patient Disposition: HOME Condition: Stable Discharge Details Reason For Visit: Hyponatremia,Dehydration,Gastroparesis, N/V Admit Date/Time: 01/31/22 23:39 Admit Provider: Broderick Rubi Attending Provider: Broderick Rubi Primary Care Provider: Unknown,Unknown Hospital Course Hospital Course: This is a 36 year old female with history of type 2 diabetes who is on insulin with history of gastroparesis, cannabinoid hyperemesis syndrome who presents frequently to the ED for intractable nausea and vomiting, typically hydrated and discharged who on this presentation did not respond to normal treatment requiring an observation admission for symptom management and electrolyte repletion. Overnight her symptoms resolved. Her diet was advanced. a recheck of her electrolytes shows they are normalizing. She remains hemodynamically stable and ready for discharge. No new services, no medication changes. discussed Dr Gay. Home Meds and New Rx's Prescriptions: Continued gabapentin 300 mg Tablet 300 - 900 mg PO DIRECTED Rx Instructions: 300 qam 900 hs lorazepam 0.5 mg Tablet 0.5 mg PO BID PRN Jardiance 10 mg Tablet 10 mg PO DAILY omeprazole 20 mg capsule,delayed release(DR/EC) 40 mg PO DAILY Qty: 60 0RF metoclopramide HCl [Reglan] 10 mg tablet 10 mg PO Q6H PRNQty: 10 0RF mupirocin 2 % ointment 1 applic TOPICAL DAILY Label Comments: APPLY OINTMENT TOPICALLY TO AFFECTED TOE ONCE DAILY UNTIL HEALED insulin aspart U-100 [Novolog Flexpen U-100 Insulin] 100 unit/mL (3 mL) insulin pen 9 unit SUBCUT TID Label Comments: INJECT 9 UNITS SUBCUTANEOUSLY THREE TIMES DAILY WITH MEALS insulin glargine [Lantus Solostar U-100 Insulin] 100 unit/mL (3 mL) insulin pen 40 unit SUBCUT HS Label Comments: INJECT 40 UNITS SUBCUTANEOUSLY AT BEDTIME amoxicillin-pot clavulanate 875-125 mg tablet 1 tab PO Q12H Qty: 30 0RF promethazine 25 mg suppository 25 mg NM ONCE Qty: 12 0RF Rx Instructions: may repeat once in 12 hours tramadol 50 mg tablet 50 mg PO PRN PRN Label Comments: TAKE 1 TABLET BY MOUTH EVERY 6 HOURS NEEDED FOR PAIN - DAILY MAX 4 TABLETS (200MG) Discharge Instructions Instructions: Hypokalemia (DC), Acute Nausea and Vomiting (DC) Stand Alone Forms: Nursing Discharge Form Referrals: Jhonatan Joy MD [ [facility] STAFF PHYSICIAN] - 02/12/22 10:30 am Activity:: Activity as Tolerated Equipment/Supplies:: No Equipment Needed Diet:: Carb Counting Discharge Orders Discharge Orders: Discharge Order (Routine); Ordered 02/01/22 Ordered By: Rosa Rm Discharge Data Discharge Date/Time-TO BE ENTERED AT DEPARTURE: 02/01/22 16:25 DS: Summary Time Spent with Patient providing and/or coordinating discharge services: Less than 30 minutes Status at Discharge Functional status at discharge: independent ambulation Overall status at discharge: patient is back to baseline Mental Status: mental status grossly normal Speech and Movement: speech and movement normal Mood: congruent mood Affect: normal affect Exam Const General: cooperative, healthy appearing, comfortable and no acute distress Nutritional Appearance: obese Orientation: alert, awake and oriented x3 HENMT Head: normal to inspection, normocephalic and atraumatic Mouth: oral mucosae normal Neck Neck: normal visual inspection Chest Chest: normal inspection of the chest Resp Effort & Inspection: normal respiratory effort Cardio Rate: regular rate Rhythm: regular rhythm GI Inspection: normal to inspection Auscultation: normal bowel sounds Skin General skin exam: no rashes or lesions noted Neuro General: patient alert, patient awake, patient oriented x3 and no focal motor deficits Extrem General: normal to inspection and full ROM Psych Mental Status: mental status grossly normal Speech and Movement: speech and movement normal Mood: congruent mood Affect: normal affect DS: Data Vitals/I&O Vitals and I&O: Vital Signs Temperature 37.1 C 02/01/22 11:20 Temperature Source Tympanic 02/01/22 11:20 Pulse 101 H 02/01/22 11:20 Pulse Rhythm Regular 02/01/22 07:19 Respiratory Rate 18 02/01/22 11:20 Respiratory Effort Non-Labored 02/01/22 07:19 Respiratory Depth Normal 02/01/22 07:19 Respiratory Pattern Normal 02/01/22 07:19 Blood Pressure 122/84 02/01/22 11:20 Pulse Oximetry 97 02/01/22 11:20 Oxygen Delivery Method Room Air 02/01/22 11:20 Oxygen Flow Rate 0 02/01/22 11:20 Pain Level 0 02/01/22 15:15 Comment 02/01/22 15:15 Intake & Output 01/31/22 02/01/22 02/01/22 23:59 11:59 23:59 Intake Total 51 / 1051 4342.5 / 4682.5 340 / 4682.5 Output Total 1700 / 1800 100 / 1800 Balance 51 / 1051 2642.5 / 2882.5 240 / 2882.5 Weight 88.451 kg 89.1 kg Intake: IV 51 / 1051 2502.5 / 2602.5 100 / 2602.5 Oral 1840 / 2080 240 / 2080 Output: Urine 1700 / 1800 100 / 1800 Other: Urine Color Straw Yellow Urine Appearance Clear Clear Urine Odor Normal Normal Comment pT stated that she had used the toilet. pT goes independently. Void x1 in the toilet. Emesis Description Bile Voiding Methods Toilet Toilet Data Completed and Pending Labs on day of discharge: Labs from last 24 hours 02/01/22 02/01/22 02/01/22 14:30 14:00 05:54 WBC 15.28 H RBC 4.57 Hgb 14.2 Hct 39.5 MCV 86 MCH 31.1 MCHC 35.9 RDW 11.9 Plt Count 398 MPV 9.6 Immature Gran % 0.4 Neutrophils % 59.1 Lymphocytes % 29.2 Monocytes % 10.5 Eosinophils % 0.5 Basophils % 0.3 Nucleated RBC % 0.0 Absolute Neutrophils 9.03 H Absolute Lymphocytes 4.46 H Absolute Monocytes 1.60 H Absolute Eosinophils 0.08 Absolute Basophils 0.05 RBC Morphology VBG pH VBG pCO2 VBG pO2 VBG HCO3 VBG Total CO2 VBG O2 Saturation VBG Base Excess Sodium 137 Potassium 3.1 L Chloride 96 L Carbon Dioxide 36.2 H Anion Gap 4.8 BUN 9 Creatinine 0.7 Estimated GFR/1.73 m2 Pending Est GFR (CKD-EPI 2020) 114.88 Glucose 162 H Calcium 8.4 L Magnesium Total Bilirubin Conjugated Bilirubin AST ALT Alkaline Phosphatase Total Protein Albumin Lipase TSH Urine Color Urine Clarity Urine pH Ur Specific [place] Urine Protein Urine Ketones Urine Blood Urine Nitrite Urine Bilirubin Urine Urobilinogen Ur Leukocyte Esterase Urine RBC Urine WBC Ur Epithelial Cells Urine Crystals Urine Bacteria Urine Casts Urine Mucus Ur Culture Indicated? Urine Glucose COVID-19 Source SARS-CoV-2 (PCR) 02/01/22 01/31/22 01/31/22 05:54 21:56 21:50 WBC RBC Hgb Hct MCV MCH MCHC RDW Plt Count MPV Immature Gran % Neutrophils % Lymphocytes % Monocytes % Eosinophils % Basophils % Nucleated RBC % Absolute Neutrophils Absolute Lymphocytes Absolute Monocytes Absolute Eosinophils Absolute Basophils RBC Morphology VBG pH 7.54 H VBG pCO2 46 VBG pO2 57 VBG HCO3 39 H VBG Total CO2 33 H VBG O2 Saturation 91 VBG Base Excess > 15 H Sodium 134 L Potassium 2.6 L* Chloride 93 L Carbon Dioxide 34.5 H Anion Gap 6.5 BUN 10 Creatinine 0.6 Estimated GFR/1.73 m2 >= 60.00 Est GFR (CKD-EPI 2020) Glucose 276 H Calcium 8.2 L Magnesium 2.2 Total Bilirubin 0.5 Conjugated Bilirubin AST 13 L ALT 21 Alkaline Phosphatase 86 Total Protein 6.7 Albumin 3.0 L Lipase TSH Urine Color Urine Clarity Urine pH Ur Specific [place] Urine Protein Urine Ketones Urine Blood Urine Nitrite Urine Bilirubin Urine Urobilinogen Ur Leukocyte Esterase Urine RBC Urine WBC Ur Epithelial Cells Urine Crystals Urine Bacteria Urine Casts Urine Mucus Ur Culture Indicated? Urine Glucose COVID-19 Source Nasal/Nares SARS-CoV-2 (PCR) Negative 01/31/22 01/31/22 01/31/22 21:50 21:50 21:45 WBC 21.28 H RBC 5.15 Hgb 16.1 H Hct 44.6 MCV 87 MCH 31.3 MCHC 36.1 H RDW 11.6 L Plt Count 455 H MPV 9.6 Immature Gran % 0.4 Neutrophils % 71.1 Lymphocytes % 19.1 Monocytes % 9.0 Eosinophils % 0.1 Basophils % 0.3 Nucleated RBC % 0.0 Absolute Neutrophils 15.13 H Absolute Lymphocytes 4.06 H Absolute Monocytes 1.92 H Absolute Eosinophils 0.02 Absolute Basophils 0.06 RBC Morphology Normal VBG pH VBG pCO2 VBG pO2 VBG HCO3 VBG Total CO2 VBG O2 Saturation VBG Base Excess Sodium 129 L D Potassium 2.6 L* Chloride 83 L Carbon Dioxide 37.1 H Anion Gap 8.9 BUN 17 Creatinine 0.9 Estimated GFR/1.73 m2 >= 60.00 Est GFR (CKD-EPI 2020) Glucose 360 H Calcium 9.2 Magnesium 1.5 L Total Bilirubin 0.7 Conjugated Bilirubin 0.2 AST 19 ALT 28 Alkaline Phosphatase 111 Total Protein 8.4 H Albumin 3.9 Lipase 135 TSH 0.55 Urine Color Yellow Urine Clarity Cloudy Urine pH 7.0 Ur Specific [place] 1.020 Urine Protein 30 H Urine Ketones >=160 H Urine Blood Negative Urine Nitrite Negative Urine Bilirubin Small H Urine Urobilinogen 1.0 H Ur Leukocyte Esterase Negative Urine RBC 0-2 Urine WBC 3-5 Ur Epithelial Cells Many Urine Crystals Negative Urine Bacteria Few Urine Casts Negative Urine Mucus Negative Ur Culture Indicated? No Urine Glucose 500 H COVID-19 Source SARS-CoV-2 (PCR) PFSH All Active Problems (Updated 02/01/22 @ 18:15 by Broderick Rubi) Type 2 diabetes mellitus (Chronic) Hyponatremia (Acute) Hypokalemia (Acute) Hypomagnesemia (Acute) Vomiting (Acute) Gastroparesis (Chronic) Vomiting (Acute) Acute dehydration (Acute) Nausea and vomiting (Acute) IDDM (insulin dependent diabetes mellitus) (Chronic) Tobacco abuse (Acute) Cannabinoid hyperemesis syndrome (Acute) DVT prophylaxis (Acute) Discharge planning issues (Acute) Upper GI bleeding (Acute) UTI (urinary tract infection) (Acute) Medical History Anxiety and depression Diabetes Type 1 Diabetic neuropathy History of cellulitis toe Suicide attempt Surgical History Amputation of left great toe H/O tubal ligation Family History Paternal Grandmother Heart disease Diabetes Maternal Aunt Hypertension Breast cancer maternal great aunt Maternal Grandfather Hypertension Maternal Grandmother Breast cancer Maternal Aunt No problems noted. Maternal Cousin Breast cancer Maternal Cousin Breast cancer Maternal Cousin Breast cancer Social History Smoking/Tobacco Use Status: Current every day Tobacco Type: cigarettes Smoking risk assessment performed?: Yes Alcohol Intake: never Drug use: Socially Substance use type: marijuana Do you feel safe at home: Yes Do you feel safe in your relationship?: Yes
--- NOTE | 2022-02-01 16:57 | PDOC.CMDIS ---
- If Service Date Differs Date of service: 02/01/22 Time of Service: 16:57 LACE Index Scoring Tool - Questions: Length of Stay (in days): 1 Acuity (Admit via E.D.?): Yes E.D. Visits: 8 - Answers: Total Score: 8 Risk of Readmission: Low Risk Care Management Discharge Reason for Hospitalization: Hypokalemia, Dehydration Discharge Plan: Cristy is discharged home via private vehicle with family. Pt with follow up with Dr. Joy on 02/12/22, as scheduled. Cristy will also call to schedule a follow up appointment with the GI specialist in [place] she sees PRN. Patient/Family Education Needs: Review discharge instructions, limitations, medications and plan to follow up with community providers. ask me three.
== END 2022-02-01 16:25 | disposition home or self-care (01) | DRG 74 ==
LOC: ER 02-01 00:37 → MS 02-01 02:00
PROVIDERS: Family Medicine; Admitting Provider Family Medicine; Emergency Provider Emergency Medicine; Visit Provider Family Medicine
DX: E11.43 Type 2 diabetes mellitus with diabetic autonomic (poly)neuropathy (principal); E87.1 Hypo-osmolality and hyponatremia; K31.84 Gastroparesis; E87.6 Hypokalemia; E83.42 Hypomagnesemia; Z79.84 Long term (current) use of oral hypoglycemic drugs; D72.829 Elevated white blood cell count, unspecified; E86.0 Dehydration; F17.210 Nicotine dependence, cigarettes, uncomplicated; F41.8 Other specified anxiety disorders; Z89.412 Acquired absence of left great toe; Z79.4 Long term (current) use of insulin; R11.10 Vomiting, unspecified; F12.90 Cannabis use, unspecified, uncomplicated
CPT/HCPCS: 36415; 80048; 80053; 82805; 83690; 87635; 96361; 96365; 96366; 96367; 96368; 96375; 99285; J1650; 74177; 81003; 81015; 82248; 83735; 84443; 85025; 99223; 99238; J2405; J3480; J3490

== ENCOUNTER 2022-02-06 11:15 | Emergency (ER) | payer MEDICAID, SELFPAY ==
[2022-02-06] VITALS (24 sets, daily range): BP systolic 118–140; BP diastolic 70–87; PULSE 93–122; RESP 10–26; TEMP 36.8; O2SAT 99–100
--- NOTE | 2022-02-06 11:34 | ED.GENADUL_ITS ---
Discharge Plan Disposition Patient Disposition: HOME Condition: Improving Discharge Details Clinical Impression: Nausea and vomiting Primary Care Provider: Unknown,Unknown ED Provider: Katiana Adams Home Meds and New Rx's Prescriptions: New promethazine 25 mg tablet 25 mg PO TID PRN (Reason: nausea and vomiting) Qty: 7 0RF No Action gabapentin 300 mg Tablet 300 - 900 mg PO DIRECTED Rx Instructions: 300 qam 900 hs lorazepam 0.5 mg Tablet 0.5 mg PO BID PRN Jardiance 10 mg Tablet 10 mg PO DAILY omeprazole 20 mg capsule,delayed release(DR/EC) 40 mg PO DAILY Qty: 60 0RF metoclopramide HCl [Reglan] 10 mg tablet 10 mg PO Q6H PRNQty: 10 0RF insulin aspart U-100 [Novolog Flexpen U-100 Insulin] 100 unit/mL (3 mL) insulin pen 9 unit SUBCUT TID Label Comments: INJECT 9 UNITS SUBCUTANEOUSLY THREE TIMES DAILY WITH MEALS insulin glargine [Lantus Solostar U-100 Insulin] 100 unit/mL (3 mL) insulin pen 40 unit SUBCUT HS Label Comments: INJECT 40 UNITS SUBCUTANEOUSLY AT BEDTIME promethazine 25 mg suppository 25 mg [place] ONCE Qty: 12 0RF Rx Instructions: may repeat once in 12 hours tramadol 50 mg tablet 50 mg PO PRN PRN Label Comments: TAKE 1 TABLET BY MOUTH EVERY 6 HOURS NEEDED FOR PAIN - DAILY MAX 4 TABLETS (200MG) Discharge Instructions Instructions: Acute Nausea and Vomiting (ED) Additional Instructions: Take nausea medication as prescribed. Slow small meals. Advance as tolerated. Try lemon or kirsten. Stay away from anything fried fatty or dairy. Follow up with primary care provider in 3-5 days. Return to ED sooner if any worsening or concerns. Increase oral fluids. Discharge Data Discharge Date/Time-TO BE ENTERED AT DEPARTURE: 02/06/22 13:29 Medical Decision Making 36-year-old female presents to the ER with chief complaint of nausea vomiting since being released from the hospital approximately 1 week ago. Patient states that she was released on Tuesday and ever since then over the days she has been throwing up. Labs, liter of normal saline and 12.5 mg Phenergan IV ordered. 1301: Patient re-evaluated she is sleeping upon entering into the room she reports feeling much better after medications and fluids. CBC shows white blood cell count of 14.34, platelets 436, sodium 129 potassium 3.3 chloride 91, glucose 276 magnesium 1.6, urinalysis shows 15 ketones 500 glucose. Patient reports feeling much better after 12 Phenergan IV, a gram of mag and a liter of fluid. Patient is requesting be discharged home. Patient discharged with prescription of Phenergan tablets discussed follow-up care with her PCP. This text was generated using [employer] system, please disregard any oddities of phrase or misspellings. Medical Records Medical records reviewed: Yes I reviewed the patient's medical records. Lab Data Lab results reviewed: Yes I reviewed the patient's lab results. Labs: Laboratory Tests Range/Units 02/06/22 02/06/22 02/06/22 11:41 11:41 12:23 WBC (4.4-10.8) 10^3/uL 14.34 H RBC (3.93-5.22) 10^6/uL 4.70 Hgb (11.2-15.7) g/dL 14.6 Hct (36.0-46.0) % 41.3 MCV (80-95) fL 88 MCH (27.0-33.0) pg 31.1 MCHC (32.0-36.0) % 35.4 RDW (11.7-14.6) % 11.6 L Plt Count (130-400) 10^3/uL 436 H MPV (8.0-11.0) fL 9.2 Immature Gran % 0.4 Neutrophils % 55.1 Lymphocytes % 32.2 Monocytes % 10.5 Eosinophils % 1.5 Basophils % 0.3 Nucleated RBC % (0.0-0.3) % 0.0 Absolute Neutrophils (1.2-6.7) 10^3/uL 7.90 H Absolute Lymphocytes (1.2-3.4) 10^3/uL 4.62 H Absolute Monocytes (0.1-0.8) 10^3/uL 1.51 H Absolute Eosinophils (0.0-0.7) 10^3/uL 0.22 Absolute Basophils (0.0-0.2) 10^3/uL 0.04 RBC Morphology Normal Sodium (136-145) mmol/L 129 L Potassium (3.5-5.1) mmol/L 3.3 L Chloride (98-107) mmol/L 91 L Carbon Dioxide (21.0-32.0) mmol/L 31.5 Anion Gap (3-11) mmol/L 6.5 BUN (7-18) mg/dL 11 Creatinine (0.55-1.02) mg/dL 0.7 Est GFR (CKD-EPI 2020) (mL/min/1.73m2) 114.88 Glucose (74-106) mg/dL 276 H Calcium (8.5-10.1) mg/dL 8.7 Magnesium (1.8-2.4) mg/dL 1.6 L Total Bilirubin (0.2-1.0) mg/dL 0.5 AST (15-37) U/L 12 L ALT (14-59) U/L 23 Alkaline Phosphatase (46-116) U/L 85 Total Protein (6.4-8.2) g/dL 7.3 Albumin (3.4-5.0) g/dL 3.5 Urine Color (Yellow) Yellow Urine Clarity (Clear) Clear Urine pH (5-8) 7.5 Ur Specific [place] (1.005-1.025) 1.015 Urine Protein (Negative) mg/dL Negative Urine Ketones (Negative) mg/dL 15 H Urine Blood (Negative) Negative Urine Nitrite (Negative) Negative Urine Bilirubin (Negative) Negative Urine Urobilinogen (Up TO 0.2) EU/dL 0.2 Ur Leukocyte Esterase (Negative) Negative Urine Glucose (Negative) mg/dL 500 H HPI General Mode of arrival: wheelchair . Date/Time Provider Initiated Documentation: 02/06/22 11:16 . Limitations to Documentation: no limitations . Information obtained by: patient, RN notes reviewed and old records reviewed . HPI Narrative: 36-year-old female presents to the ER with chief complaint of nausea vomiting since being released from the hospital approximately 1 week ago. Patient states that she was released on Tuesday and ever since then over the days she has been throwing up. She denies any fever chills no dysuria or any other associated symptoms. She does have a past medical history of gastroparesis, type 2 diabetes melitis, cannabinoid hyperemesis syndrome. Related Data Home Medications Medication Instructions Recorded Confirmed gabapentin 300 mg tablet 300 - 900 mg PO DIRECTED 01/24/21 02/06/22 lorazepam 0.5 mg tablet 0.5 mg PO BID PRN 01/24/21 02/06/22 empagliflozin 10 mg tablet 10 mg PO DAILY 01/28/21 02/06/22 (Jardiance) omeprazole 20 mg capsule,delayed 40 mg PO DAILY #60 caps 01/28/21 02/06/22 release promethazine 25 mg rectal 25 mg [place] ONCE #12 ea 03/08/21 02/06/22 suppository tramadol 50 mg tablet 50 mg PO PRN PRN 09/12/21 02/06/22 metoclopramide HCl 10 mg tablet 10 mg PO Q6H PRN #10 tabs 11/17/21 02/06/22 (Reglan) insulin aspart U-100 100 unit/mL 9 unit subcut TID 01/14/22 02/06/22 (3 mL) subcutaneous pen (Novolog Flexpen U-100 Insulin aspart) insulin glargine 100 unit/mL (3 40 unit subcut HS 01/14/22 02/06/22 mL) subcutaneous pen (Lantus Solostar U-100 Insulin) promethazine 25 mg tablet 25 mg PO TID PRN nausea and 02/06/22 vomiting #7 tabs Previous Rx's Medication Instructions Recorded omeprazole 20 mg capsule,delayed 40 mg PO DAILY #60 caps 01/28/21 release promethazine 25 mg rectal 25 mg NJ ONCE #12 ea 03/08/21 suppository metoclopramide HCl 10 mg tablet 10 mg PO Q6H PRN #10 tabs 11/17/21 (Reglan) promethazine 25 mg tablet 25 mg PO TID PRN nausea and 02/06/22 vomiting #7 tabs Allergies Allergy/AdvReac Type Severity Reaction Status Date / Time ibuprofen [From Advil] Allergy Severe throat Unverified 02/06/22 11:23 closes pomegranate Allergy Severe Anaphylaxis Verified 02/06/22 11:23 citalopram AdvReac Severe Bodily harm Verified 02/06/22 11:23 General Stated Complaint: Nausea/Vomit/Diar ARNOLD: 3 Review of Systems All systems reviewed & are unremarkable except as noted in HPI and below Gastrointestinal Gastrointestinal: Reports nausea and Reports vomiting Genitourinary Genitourinary: Denies dysuria PFSH All Active Problems (Updated 02/06/22 @ 13:19 by Katiana Adams NP) Type 2 diabetes mellitus (Chronic) Hyponatremia (Acute) Hypokalemia (Acute) Hypomagnesemia (Acute) Vomiting (Acute) Gastroparesis (Chronic) Vomiting (Acute) Acute dehydration (Acute) Nausea and vomiting (Acute) IDDM (insulin dependent diabetes mellitus) (Chronic) Tobacco abuse (Acute) Cannabinoid hyperemesis syndrome (Acute) DVT prophylaxis (Acute) Discharge planning issues (Acute) Upper GI bleeding (Acute) UTI (urinary tract infection) (Acute) Medical History Anxiety and depression Diabetes Type 1 Diabetic neuropathy History of cellulitis toe Suicide attempt Surgical History Amputation of left great toe H/O tubal ligation Family History Paternal Grandmother Heart disease Diabetes Maternal Aunt Hypertension Breast cancer maternal great aunt Maternal Grandfather Hypertension Maternal Grandmother Breast cancer Maternal Aunt No problems noted. Maternal Cousin Breast cancer Maternal Cousin Breast cancer Maternal Cousin Breast cancer Social History Smoking/Tobacco Use Status: Current every day Tobacco Type: cigarettes Smoking risk assessment performed?: Yes Alcohol Intake: never Drug use: Socially Substance use type: marijuana Do you feel safe at home: Yes Do you feel safe in your relationship?: Yes Exam Narrative Exam Narrative: Constitutional: Alert and oriented x3. Appears stated age. Normal body habitus. Head: Normocephalic, no trauma. Eyes: Pupils PERRL, Red reflex noted, EOM's intact. Eyelids symmetrical without lesions, discharge, or swelling. ENT: Bilateral TM's WNL, External ear normal to inspection, no mastoid TTP, swelling, or erythema, Nasal turbinates WNL, no nasal discharge. Normal dentition, Posterior pharynx WNL, no exudate. Chest: RRR, Normal S1, S2, distal pulses intact. Resp: Lungs clear to auscultation bilaterally, no wheezes, rales, or rhonchi. Abdomen: Soft, non-distended, Normoactive bowel sounds all 4 quads. Musculoskeletal: Normal gait, 5/5 strength to all four extremities. Skin: No suspicious rashes or lesions. Capillary refill less than 2 sec. Neurologic: Cranial nerves II-XII intact. Alert and oriented x 3. Motor: No deficits noted. Sensory: Intact bilaterally all 4 extremities. Reflexes: DTR's intact bilaterally.. Hematologic/Lymphatic: No ecchymosis, no lymphadenopathy. Course Vital Signs Vital signs: Vital Signs Temperature 36.8 C 02/06/22 11:20 Pulse 103 H 02/06/22 11:20 Respiratory Rate 18 02/06/22 11:20 Blood Pressure 133/76 02/06/22 11:20 Pulse Oximetry 99 02/06/22 11:20 Temperature 36.8 C 02/06/22 11:20 Temperature Source Temporal Artery Scan 02/06/22 11:20 Pulse 103 H 02/06/22 11:20 Respiratory Rate 18 02/06/22 11:20 Respiratory Effort 02/06/22 11:22 Blood Pressure 133/76 02/06/22 11:20 Blood Pressure Position Sitting 02/06/22 11:20 Pulse Oximetry 99 02/06/22 11:20 Oxygen Delivery Method Room Air 02/06/22 11:20 Oxygen Flow Rate 0 02/06/22 11:20 Pain Level 7 02/06/22 11:20
[2022-02-06 11:48] LABS: Abs Immature Grans 0.06 10^3/uL (0.0-0.06); Absolute Eosinophil Count 0.22 10^3/uL (0.0-0.7); Absolute Lymphocyte Count 4.62 10^3/uL (1.2-3.4); Absolute Monocyte Count 1.51 10^3/uL (0.1-0.8); Basophils % 0.3; Eosinophils % 1.5; HCT 41.3 % (36.0-46.0); HGB 14.6 g/dL (11.2-15.7); Immature Grans % 0.4; Lymphocytes % 32.2; MCH 31.1 pg (27.0-33.0); MCHC 35.4 % (32.0-36.0); MCV 88 fL (80-95); MPV 9.2 fL (8.0-11.0); Monocytes % 10.5; Neutrophils % 55.1; Platelet Count 436 10^3/uL (130-400); RDW 11.6 % (11.7-14.6); RDW-SD 36.9 fL; WBC 14.34 10^3/uL (4.4-10.8)
[2022-02-06 11:53] LABS: Absolute Basophil Count 0.04 10^3/uL (0.0-0.2)
[2022-02-06] MEDS: Normal Saline 1,000 ML 1000 ML IV (11:53)
[2022-02-06 12:02] LABS: ALT 23 U/L (14-59); AST 12 U/L (15-37); Albumin 3.5 g/dL (3.4-5.0); Alkaline Phosphatase 85 U/L (46-116); Anion Gap 6.5 mmol/L (3-11); BUN 11 mg/dL (7-18); Bilirubin, Total 0.5 mg/dL (0.2-1.0); CO2 31.5 mmol/L (21.0-32.0); CREATININE 0.7 mg/dL (0.55-1.02); Calcium 8.7 mg/dL (8.5-10.1); Chloride 91 mmol/L (98-107); Estimated GFR 114.88 (mL/min/1.73m2); Glucose 276 mg/dL (74-106); Magnesium 1.6 mg/dL (1.8-2.4); Potassium 3.3 mmol/L (3.5-5.1); Sodium 129 mmol/L (136-145); Total Protein 7.3 g/dL (6.4-8.2)
[2022-02-06] MEDS: MAGNESIUM SULFATE 1 GM/100 ML BAG IVPB (12:05)
[2022-02-06 12:22] LABS: Diff Comment Agrees w/ Instrument; RBC Morphology Normal
[2022-02-06 12:36] LABS: Bilirubin Negative (Negative); Blood Negative (Negative); Clarity Clear (Clear); Glucose 500 mg/dL (Negative); Ketones 15 mg/dL (Negative); Leukocyte Esterase Negative (Negative); Nitrite Negative (Negative); Specific Gravity 1.015 (1.005-1.025); Urobilinogen 0.2 EU/dL (Up TO 0.2); pH 7.5 (5-8)
== END 2022-02-06 13:29 | disposition home or self-care (01) ==
PROVIDERS: Emergency Provider Registered Nurse Emergency
DX: R11.2 Nausea with vomiting, unspecified (principal); E10.43 Type 1 diabetes mellitus with diabetic autonomic (poly)neuropathy; K31.84 Gastroparesis; E10.40 Type 1 diabetes mellitus with diabetic neuropathy, unspecified; F17.210 Nicotine dependence, cigarettes, uncomplicated; Z79.4 Long term (current) use of insulin
CPT/HCPCS: 36415; 80053; 96361; 96365; 99284; 81003; 83735; 85025; J3475

== ENCOUNTER → 2022-03-18 02:05 | Outpatient (CLI) | payer BC, MEDICAID, SELFPAY ==
--- NOTE | 2022-03-18 | DI.RAD_ITS ---
Exam(s) XR LUMBAR SPINE AP, LAT EXAM: XR LUMBAR SPINE AP, LAT CLINICAL HISTORY: CHRONIC LOW BACK PAIN, NO RESPONSE TO PT,M54.50. TECHNIQUE: 2D digital imaging was performed of the lumbar spine. Two images were obtained. AP and lateral views were obtained. COMPARISON: CR,XR XR ABDOMEN FLAT UPRIGHT from 03/08/2021 FINDINGS: BONES: No fracture or destructive lesion. Endplate osteophytes are seen throughout the lumbar spine. No facet hypertrophy identified. DISKS: Mild disc space narrowing is seen at L4-L5. ALIGNMENT: Lumbar spinal alignment is within normal limits. No spondylolysis or spondylolisthesis. SOFT TISSUE: Normal. IMPRESSION: Moderate lumbar spondylosis. DATA REPOSITORY: RADIATION DOSE DELIVERED:
== END ==
PROVIDERS: Visit Provider Internal Medicine
DX: M47.816 Spondylosis without myelopathy or radiculopathy, lumbar region (principal)
CPT/HCPCS: 72100

== ENCOUNTER 2022-04-09 16:06 | Emergency (ER) | payer BC, MEDICAID, SELFPAY ==
[2022-04-09] VITALS (7 sets, daily range): BP systolic 133–143; BP diastolic 79–97; PULSE 96–111; RESP 10–19; TEMP 36.6–37.5; O2SAT 98–100
--- NOTE | 2022-04-09 16:16 | W.ED.GENAD ---
Discharge Plan Disposition Patient Disposition: HOME Condition: Improving Discharge Details Chief Complaint: Abd Prob Clinical Impression: Nausea and vomiting, Blood glucose elevated Primary Care Provider: Unknown,Unknown ED Provider: Atiya Moody Home Meds and New Rx's Prescriptions: New ondansetron 4 mg tablet,disintegrating 4 mg PO Q6H PRN (Reason: nausea and vomiting) Qty: 10 0RF Continued gabapentin 300 mg Tablet 300 - 900 mg PO DIRECTED Rx Instructions: 300 qam 900 hs lorazepam 0.5 mg Tablet 0.5 mg PO BID PRN Jardiance 10 mg Tablet 10 mg PO DAILY omeprazole 20 mg capsule,delayed release(DR/EC) 40 mg PO DAILY Qty: 60 0RF metoclopramide HCl [Reglan] 10 mg tablet 10 mg PO Q6H PRNQty: 10 0RF insulin aspart U-100 [Novolog Flexpen U-100 Insulin] 100 unit/mL (3 mL) insulin pen 9 unit SUBCUT TID Label Comments: INJECT 9 UNITS SUBCUTANEOUSLY THREE TIMES DAILY WITH MEALS insulin glargine [Lantus Solostar U-100 Insulin] 100 unit/mL (3 mL) insulin pen 40 unit SUBCUT HS Label Comments: INJECT 40 UNITS SUBCUTANEOUSLY AT BEDTIME promethazine 25 mg tablet 25 mg PO TID PRN (Reason: nausea and vomiting) Qty: 7 0RF promethazine 25 mg suppository 25 mg [place] ONCE Qty: 12 0RF Rx Instructions: may repeat once in 12 hours tramadol 50 mg tablet 50 mg PO PRN PRN Label Comments: TAKE 1 TABLET BY MOUTH EVERY 6 HOURS NEEDED FOR PAIN - DAILY MAX 4 TABLETS (200MG) Discharge Instructions Instructions: Ondansetron (By mouth), Acute Nausea and Vomiting (ED), Diabetic Hyperglycemia (ED) Additional Instructions: Please continue to encourage hydration. You may use the Zofran as prescribed to help with any recurrent nausea or vomiting. I am concerned that you continue to have this recurrent issue. Please stop using marijuana as this may be contributing to your recurrent vomiting and abdominal discomfort. I have referred you to general surgery for further evaluation and management. If you develop inability stay hydrated, fever/chills, increased pain or other new/worsening symptoms to seek care urgently with again. Otherwise, please call general surgery to schedule follow-up appointment, number listed below. Referrals: Milvia Collier MD [ [facility] STAFF PHYSICIAN] - Discharge Data Discharge Date/Time-TO BE ENTERED AT DEPARTURE: 04/09/22 19:48 Medical Decision Making Patient is a 37-year-old female, accompanied by significant other, with c/c of nausea and vomiting. Started last night. She has had several recurrent episodes of vomiting for which she has been iseen in the ED. Has had GI bleed historically. She has been taking Pepto today to help with symptoms, no relief. Denies fevers/chills. Past surgical history signifcant for tubal ligation. Denies CP or SOB. States that Zofran typically works well but has run out of this. Has not tried her rectal phenergan. She endorses epigastric and left upper quadrant tenderness. States that she had a few loose stools yesterday but no diarrhea today. These are all nonbloody. The emesis bag that she got on was still obtained for liquid. This was heme-negative. On exam, patient appears uncomfortable. She is questioning emesis bag. Hemodynamically stable, slightly tachycardic with heart rate of 96. Lungs are clear, normal cardiac exam. Abdomen is diffusely tender but no peritoneal or focal area of tenderness. This has been a recurrent issue for the patient, she has had concerns for cannaboid induced hyperemesis in the past. This may be the recurrent iss ue at this time. As she has had multiple imaging in the past and she does not demonstrate any evidence of surgical abdomen at this time. Her hx and exam is not consistent with ACS, dissection. Labs reviewed. Patient does have an elevated white count of 15.8, platelet count of 441. CMP concerning for slight anion gap, glucose of 353. Patient has had elevated glucose historically. Unclear how frequently she checks this. Patient is currently sleeping in the hospital but not sure about this. Her potassium is in the normal limits. She has not yet given a urine suggestive. Lipase within normal limits. We will add on an A1c as well as a VBG as she obtained as symptoms of financial and patient not yet able to give a urine. Urine has no elevated specific gravity. She is not acidotic. While the patient does have ketones, this is likely associated with her nausea/vomiting and limited PO intake. She does not clinically look like DKA, the glucose is baseline for her. As she has normal pH, I do not think she needs to be treated for DKA. However, I did speak with the patient again about the importance fo treating her glucose as she has not been doing this much. We discussed dietary changes, medication management and I encouraged that she discuss this further with her PCP. Reevaluated the patient. Her nausea completely subsided with Zofran. She is drinking kirsten stan currently and able to give a urine. Pain has subsided. She reports that Zofran typically works best for her when she has these recurrent episodes of nausea and vomiting. Will also refer to general surgery. As she has had such an extensive history of nausea/vomiting, unclear if she may benefit from endoscopy for further exploration of her frequent recurrent symptoms. ncouraged hydration. We again discuss the link with the marijuana and encourage that she abstain. Strict return precautions given. All of her queestions and concerns were addressed, sh ei s in agreement with this plan. HPI General Date/Time Provider Initiated Documentation: 04/09/22 16:07. Limitations to Documentation: no limitations. Information obtained by: patient, family, RN notes reviewed and old records reviewed. History of Present Illness 37 year old F presents to the emergency department with the chief complaint of recurrent abdominal pain, nausea/vomiting, described as severe and similar to prior episodes, Quality is described as burning, and is localized to the abdomen. Patient reports no radiation. Patient started experiencing this day(s) and it has been constant. No relieving factors improve symptom(s), No exacerbating factors reported . Patient notes loss of appetite, malaise and nausea/vomiting; denies chest pain, cough, fever/chills, headaches, rash and shortness of breath. Related Data Home Medications Medication Instructions Recorded Confirmed gabapentin 300 mg tablet 300 - 900 mg PO DIRECTED 01/24/21 04/09/22 lorazepam 0.5 mg tablet 0.5 mg PO BID PRN 01/24/21 04/09/22 empagliflozin 10 mg tablet 10 mg PO DAILY 01/28/21 04/09/22 (Jardiance) omeprazole 20 mg capsule,delayed 40 mg PO DAILY #60 caps 01/28/21 04/09/22 release promethazine 25 mg rectal 25 mg [place] ONCE #12 ea 03/08/21 04/09/22 suppository tramadol 50 mg tablet 50 mg PO PRN PRN 09/12/21 04/09/22 metoclopramide HCl 10 mg tablet 10 mg PO Q6H PRN #10 tabs 11/17/21 04/09/22 (Reglan) insulin aspart U-100 100 unit/mL 9 unit subcut TID 01/14/22 04/09/22 (3 mL) subcutaneous pen (Novolog Flexpen U-100 Insulin aspart) insulin glargine 100 unit/mL (3 40 unit subcut HS 01/14/22 04/09/22 mL) subcutaneous pen (Lantus Solostar U-100 Insulin) promethazine 25 mg tablet 25 mg PO TID PRN nausea and 02/06/22 04/09/22 vomiting #7 tabs ondansetron 4 mg disintegrating 4 mg PO Q6H PRN nausea and 04/09/22 tablet vomiting #10 tabs Previous Rx's Medication Instructions Recorded omeprazole 20 mg capsule,delayed 40 mg PO DAILY #60 caps 01/28/21 release promethazine 25 mg rectal 25 mg [place] ONCE #12 ea 03/08/21 suppository metoclopramide HCl 10 mg tablet 10 mg PO Q6H PRN #10 tabs 11/17/21 (Reglan) promethazine 25 mg tablet 25 mg PO TID PRN nausea and 02/06/22 vomiting #7 tabs ondansetron 4 mg disintegrating 4 mg PO Q6H PRN nausea and 04/09/22 tablet vomiting #10 tabs Allergies Allergy/AdvReac Type Severity Reaction Status Date / Time ibuprofen [From Advil] Allergy Severe throat Verified 04/15/22 10:48 closes pomegranate Allergy Severe Anaphylaxis Verified 04/15/22 10:48 citalopram AdvReac Severe Bodily harm Verified 04/15/22 10:48 General ARNOLD: 3 Review of Systems Constitutional Constitutional: Reports as per HPI, Denies chills and Denies fever(s) Cardiovascular Cardiovascular: Reports as per HPI, Denies chest pain and Denies dyspnea Respiratory Respiratory: Reports as per HPI, Denies cough and Denies dyspnea Gastrointestinal Gastrointestinal: Reports as per HPI Musculoskeletal Musculoskeletal: Reports as per HPI and Denies back pain Integumentary/Breasts Skin/Breast: Reports as per HPI and Denies rash Neurologic Neurologic: Reports as per HPI PFSH All Active Problems (Updated 11/04/22 @ 19:32 by EUNICE Butts) Blood glucose elevated (Acute) Infection of toe (Acute) Amputation of toe of left foot (Acute) Ulcer of other part of foot (Acute) Type 2 diabetes mellitus with diabetic neuropathy (Acute) Type 2 diabetes mellitus (Chronic) Hyponatremia (Acute) Hypokalemia (Acute) Hypomagnesemia (Acute) Vomiting (Acute) Gastroparesis (Chronic) Vomiting (Acute) Acute dehydration (Acute) Nausea and vomiting (Acute) IDDM (insulin dependent diabetes mellitus) (Chronic) Tobacco abuse (Acute) Cannabinoid hyperemesis syndrome (Acute) DVT prophylaxis (Acute) Discharge planning issues (Acute) Upper GI bleeding (Acute) UTI (urinary tract infection) (Acute) Medical History Anxiety and depression Diabetes Type 1 Diabetic neuropathy History of cellulitis toe Suicide attempt Surgical History Amputation of left great toe H/O tubal ligation Family History Paternal Grandmother Heart disease Diabetes Maternal Aunt Hypertension Breast cancer maternal great aunt Maternal Grandfather Hypertension Maternal Grandmother Breast cancer Maternal Aunt No problems noted. Maternal Cousin Breast cancer Maternal Cousin Breast cancer Maternal Cousin Breast cancer Social History Smoking/Tobacco Use Status: Current every day Tobacco Type: cigarettes Smoking risk assessment performed?: Yes Alcohol Intake: never Drug use: Socially Substance use type: marijuana Do you feel safe at home: Yes Do you feel safe in your relationship?: Yes Additional Social history: at bedside Exam Const General: cooperative, healthy appearing, uncomfortable, no acute distress and well developed Nutritional Appearance: well nourished and overweight Orientation: alert and awake [facility] Head: normal to inspection Mouth: moist mucous membranes Resp Effort & Inspection: normal respiratory effort, able to speak in complete sentences and no respiratory distress Auscultation: clear to auscultation bilaterally, no rales, no rhonchi and no wheezes Cardio Rate: regular rate Rhythm: regular rhythm Heart Sounds: S1 normal and S2 normal GI Inspection: normal to inspection, no edema and non-distended Palpation: soft, no hepatosplenomegaly and tender (diffusely tender but no peritoneal findigns or focal area of discomfort) Percussion: normal to percussion Auscultation: normal bowel sounds Back/Spine/Pelvis Back: no CVA tenderness Skin General skin exam: no rashes or lesions noted Trauma: no lacerations or abrasions Neuro General: patient alert and patient awake Cognition: normal cognition Speech: speech normal Gait: normal gait Psych Appearance: grossly normal and well kempt Mental Status: mental status grossly normal Speech and Movement: speech and movement normal
--- NOTE | 2022-04-09 16:30 | RT.EKG_ITS ---
APPROVED REPORT Exam: Resting ECG Reason for Exam: N/V Patient Location: E HR:112 bpm ECG Measurements Heart Rate 112 AXIS [place] 171 P 63 QRSd 90 QRS 33 QT 328 T 2 QTc 448 Conclusion Sinus tachycardia...rate> 99 Prominent P waves, nondiagnostic...wide/notched/biphasic P waves Physician: No stemi. Q3T3. Unchanged
[2022-04-09 16:46] LABS: Abs Immature Grans 0.05 10^3/uL (0.0-0.06); Absolute Basophil Count 0.02 10^3/uL (0.0-0.2); Basophils % 0.1; Eosinophils % 0.1; HCT 42.8 % (36.0-46.0); Immature Grans % 0.3; Lymphocytes % 10.9; MCH 31.1 pg (27.0-33.0); MCV 89 fL (80-95); MPV 9.7 fL (8.0-11.0); Monocytes % 6.3; Neutrophils % 82.3; Platelet Count 441 10^3/uL (130-400); RBC 4.82 10^6/uL (3.93-5.22); RDW 12.5 % (11.7-14.6); RDW-SD 41.1 fL
[2022-04-09 16:47] LABS: Absolute Eosinophil Count 0.02 10^3/uL (0.0-0.7); Absolute Lymphocyte Count 1.72 10^3/uL (1.2-3.4)
[2022-04-09] MEDS: Lactated Ringers 1,000 ML 1000 ML IV ×2 (16:48→17:57)
[2022-04-09] MEDS: Ondansetron 4 MG/2 ML VIAL IVP (16:48)
[2022-04-09 17:03] LABS: Troponin I < 50 ng/L (<or=60)
[2022-04-09 17:10] LABS: ALT 20 U/L (14-59); AST 13 U/L (15-37); Albumin 3.9 g/dL (3.4-5.0); Alkaline Phosphatase 104 U/L (46-116); Anion Gap 12.1 mmol/L (3-11); BUN 17 mg/dL (7-18); Bilirubin, Total 0.5 mg/dL (0.2-1.0); CO2 29.9 mmol/L (21.0-32.0); CREATININE 0.9 mg/dL (0.55-1.02); Calcium 9.7 mg/dL (8.5-10.1); Chloride 97 mmol/L (98-107); Estimated GFR 84.44 (mL/min/1.73m2); Glucose 353 mg/dL (74-106); Lipase 115 U/L (73-393); Magnesium 1.7 mg/dL (1.8-2.4); Potassium 3.6 mmol/L (3.5-5.1); Sodium 139 mmol/L (136-145); Total Protein 8.1 g/dL (6.4-8.2)
[2022-04-09 18:00] LABS: BE (Venous) 7 mmol/L (-2-3); HCO3 (Venous) 32 mmol/L (23-28); O2 Sat (Venous) 68 %; TCO2 (Venous) 28 mmol/L (24-29); pCO2 (Venous) 49 mmHg (41-51); pH (Venous) 7.42 (7.31-7.41); pO2 (Venous) 34 mmHg
[2022-04-09 18:12] LABS: Hemoglobin A1C 10.3 % (<5.7)
[2022-04-09 18:45] LABS: Bilirubin Negative (Negative); Blood Negative (Negative); Clarity Clear (Clear); Glucose 500 mg/dL (Negative); Ketones 80 mg/dL (Negative); Leukocyte Esterase Negative (Negative); Nitrite Negative (Negative); Urobilinogen 0.2 EU/dL (Up TO 0.2)
[2022-04-09] MEDS: Pantoprazole 40 MG VIAL IVP (18:56)
[2022-04-09] MEDS: Mylanta Suspension 30 ML CUP PO (18:56)
[2022-04-09 19:02] LABS: *AMPHETAMINES SCREEN URINE Negative (Negative); *BARBITURATES SCREEN URINE Negative (Negative); *BENZODIAZEPINES SCREEN URINE Negative (Negative); Cannabinoids THC Positive (Negative); Cocaine Screen,Urine Negative (Negative); METHADONE URINE SCREEN Negative (Negative); OPIATES URINE SCREEN Negative (Negative); Tricyclic Antidepressants Negative (Negative)
[2022-04-09] MEDS: Sucralfate 1 GM TAB PO (19:22)
--- NOTE | 2022-04-09 19:34 | NUR.NOTE ---
Addendum entered by Mari Ma 04/09/22 19:47: Also referred to Care Management to establish pcp multiple emergency dept visits. Original Note: Referral faxed to [facility] to f/u routinely for recurrent nausea, vomiting, hemetemesis.Nursing Note:
== END 2022-04-09 19:48 | disposition home or self-care (01) ==
PROVIDERS: Emergency Provider Physician Assistant
DX: E10.65 Type 1 diabetes mellitus with hyperglycemia (principal); R11.2 Nausea with vomiting, unspecified
CPT/HCPCS: 36415; 80053; 80307; 82805; 83690; 93005; 96361; 96374; 96375; 99284; 81003; 83036; 83735; 84484; 85025; 93010; 99283; J2405

== ENCOUNTER 2022-04-29 00:02 | Emergency (ER) | payer BC, MEDICAID, SELFPAY ==
[2022-04-29 00:04] VITALS: BP 132/86; PULSE 126; RESP 16; TEMP 36.4; O2SAT 100
--- NOTE | 2022-04-29 00:30 | DI.RAD_ITS ---
Exam(s) XR TOE LT THIRD EXAM: XR TOE LT THIRD CLINICAL HISTORY: distal 3rd toe infection/ulcer, r/o osteomyelitis TECHNIQUE: COMPARISON: CR,XR XR FOOT LT COMPLETE from 11/16/2021 FINDINGS: Three views were obtained. Note is made of prior amputations at the 1st MTP joint and the PIP joint of the 2nd toe. There is reportedly a clinical history suggesting infectious process of the 3rd toe. The tuft of the distal phalanx of the 3rd toe shows significant poorly defined bony resorption cons istent with osteomyelitis. No other significant bony abnormality seen. IMPRESSION: The appearance is suggestive of osteomyelitis of the tuft of the distal phalanx of the 3rd toe. Path ological fracture may be present as well. RADIATION DOSE DELIVERED: Total DLP
--- NOTE | 2022-04-29 00:40 | ED.GENADUL_ITS ---
Discharge Plan Disposition Patient Disposition: Against Medical Advise Condition: Stable Discharge Details Clinical Impression: Cellulitis of third toe, left, Osteomyelitis of third toe of left foot Primary Care Provider: Unknown,Unknown ED Provider: Irene Madden Home Meds and New Rx's Prescriptions: New clindamycin HCl 150 mg capsule 450 mg PO TID 7 Days Qty: 63 0RF Continued gabapentin 300 mg Tablet 300 - 900 mg PO DIRECTED Rx Instructions: 300 qam 900 hs lorazepam 0.5 mg Tablet 0.5 mg PO BID PRN Jardiance 10 mg Tablet 10 mg PO DAILY omeprazole 20 mg capsule,delayed release(DR/EC) 40 mg PO DAILY Qty: 60 0RF metoclopramide HCl [Reglan] 10 mg tablet 10 mg PO Q6H PRNQty: 10 0RF insulin aspart U-100 [Novolog Flexpen U-100 Insulin] 100 unit/mL (3 mL) insulin pen 9 unit SUBCUT TID Label Comments: INJECT 9 UNITS SUBCUTANEOUSLY THREE TIMES DAILY WITH MEALS insulin glargine [Lantus Solostar U-100 Insulin] 100 unit/mL (3 mL) insulin pen 40 unit SUBCUT HS Label Comments: INJECT 40 UNITS SUBCUTANEOUSLY AT BEDTIME promethazine 25 mg tablet 25 mg PO TID PRN (Reason: nausea and vomiting) Qty: 7 0RF promethazine 25 mg suppository 25 mg OR ONCE Qty: 12 0RF Rx Instructions: may repeat once in 12 hours tramadol 50 mg tablet 50 mg PO PRN PRN Label Comments: TAKE 1 TABLET BY MOUTH EVERY 6 HOURS NEEDED FOR PAIN - DAILY MAX 4 TABLETS (200MG) ondansetron 4 mg tablet,disintegrating 4 mg PO Q6H PRN (Reason: nausea and vomiting) Qty: 10 0RF No Action (DME) Dexcom G6 Sensor Device See Rx Instructions .Route Qty: 6 0RF Rx Instructions: As directed Discharge Instructions Instructions: Cellulitis (ED), Osteomyelitis (ED), Abscess (ED) Additional Instructions: You are leaving the hospital AGAINST MEDICAL ADVICE. Your x-ray today shows findings concerning for infection in your bone in your toe. It is recommended to stay in the hospital for IV antibiotics and consideration for possible surgery of your toe. You were given a dose of 3 different IV antibiotics in the emergency department today. You are being sent home with a prescription for oral antibiotics which may not be effective for your toe infection as it is recommended to stay for IV antibiotics. Rest and elevate your left foot as much as possible Stop taking your keflex. Continue to take Tylenol or Tramadol that you have at home as needed and directed for pain. It would be recommended to return to the emergency department tomorrow once you are able to secure childcare for IV antibiotics and likely admission for continued IV antibiotics and involvement of podiatry for possible surgery. Referrals: Ester Gabriel DPM [[facility] STAFF PHYSICIAN] - Discharge Data Discharge Date/Time-TO BE ENTERED AT DEPARTURE: 04/29/22 04:43 Discharge Physician: Irene Madden Medical Decision Making 37-year-old female with a history of obesity and type 2 diabetes presents for worsening left third toe infection for the past 10 days. She has been on Keflex for the past week per podiatry without improvement. Rate 120s on arrival. She appears comfortable and nontoxic. She is afebrile. She has a 1 x 1 cm ulcer on the tip of the left third toe with pus drainage in center and surrounding edema of the toe. There is no significant cellulitis or lymphangitis or evidence of abscess. She is otherwise neurovascular intact. She does have amputation of the left first and second toes. Considering her potential failed outpatient treatment, will obtain screening labs, left foot x- ray and give a dose of IV clindamycin. She would rather go home this evening to spend Thanksgiving with her family tomorrow. Labs and imaging reviewed. White blood cell count 15 which is similar to previous results over the past year. Lactate within normal limits. X-ray notes findings concerning for evidence of osteomyelitis. Results discussed with patient --it is recommended that she stay in the hospital for IV antibiotics but she is declining to stay. it was discussed that the options for oral antibiotics for home may not be effective and she may need surgical amputation of her toe sooner than later. The risks of and disability due to worsening condition such as worsening infection, sepsis, etc. explained and patient understands and would still like to leave. She demonstrates capacity to make decisions. She states she likely can return to the emergency department tomorrow after she is able to secure childcare and will plan to stay for IV antibiotics and likely admission. Discussed with patient that the ideal plan would be for podiatry to evaluate as soon as possible for consideration for amputation. Discussed with the there might be a delay in this plan but she would at minimum stay for IV antibiotics and observation. A dose of IV vancomycin and ceftriaxone ordered to cover for possible osteomyelitis. We will send with clindamycin for home and a prescription for clindamycin sent electronically to her pharmacy if for some reason she is unable to return to the emergency department. We will also place patient on Dr. Gabriel list for evaluation if she does not return tomorrow. Medical Records Medical records reviewed: Yes I reviewed the patient's medical records. Imaging Data Radiologic Study: Radiologist's impression: XR Left Toe(s) Exam date and time: 04/29/2022 12:52 AM Age: 37 years old Clinical indication: Other: Distal 3rd toe infection/ulcer, R/O osteomyelitis; Prior surgery; Surgery date: 6+ months; Surgery type: 1st toe removed TECHNIQUE: Imaging protocol: Radiologic exam of the Left toes. Views: Minimum 2 views. COMPARISON: MR LOWER EXTREMITY LT WO/W 01/13/2022 7:51 AM FINDINGS: Bones/joints:? Patchy lytic changes of the terminal 3rd tuft phalanx possible pathologic fracture 1st phalangeal amputations. Distal? 2nd phalangeal amputation Soft tissues:? Distal 3rd toe swelling and possible ulcer/wound IMPRESSION: Findings suspect for osteomyelitis in the distal 3rd toe/tuft as described.? Underlying pathologic fracture not excluded Lab Data Lab results reviewed: Yes I reviewed the patient's lab results. Labs: Laboratory Tests Range/Units 04/29/22 04/29/22 04/29/22 00:40 00:40 00:40 WBC (4.4-10.8) 10^3/uL 15.24 H RBC (3.93-5.22) 10^6/uL 4.53 Hgb (11.2-15.7) g/dL 14.1 Hct (36.0-46.0) % 41.6 MCV (80-95) fL 92 MCH (27.0-33.0) pg 31.1 MCHC (32.0-36.0) % 33.9 RDW (11.7-14.6) % 12.2 Plt Count (130-400) 10^3/uL 460 H MPV (8.0-11.0) fL 9.2 Immature Gran % 0.0 Neutrophils % 46.0 Lymphocytes % 39.0 Atypical Lymphs % 2 Monocytes % 10.0 Eosinophils % 3.0 Basophils % 0.0 Nucleated RBC % (0.0-0.3) % 0.0 Absolute Neutrophils (1.2-6.7) 10^3/uL 7.01 H Absolute Lymphocytes (1.2-3.4) 10^3/uL 6.25 H Absolute Monocytes (0.1-0.8) 10^3/uL 1.52 H Absolute Eosinophils (0.0-0.7) 10^3/uL 0.46 Absolute Basophils (0.0-0.2) 10^3/uL 0.00 RBC Morphology Normal VBG Lactate (0.6-1.4) mmol/L 0.6 Sodium (136-145) mmol/L 135 L Potassium (3.5-5.1) mmol/L 3.5 Chloride (98-107) mmol/L 98 Carbon Dioxide (21.0-32.0) mmol/L 28.5 Anion Gap (3-11) mmol/L 8.5 BUN (7-18) mg/dL 13 Creatinine (0.55-1.02) mg/dL 0.8 Est GFR (CKD-EPI 2020) (mL/min/1.73m2) 97.26 Glucose (74-106) mg/dL 208 H Calcium (8.5-10.1) mg/dL 9.3 Total Bilirubin (0.2-1.0) mg/dL 0.4 AST (15-37) U/L 14 L ALT (14-59) U/L 21 Alkaline Phosphatase (46-116) U/L 103 Total Protein (6.4-8.2) g/dL 8.1 Albumin (3.4-5.0) g/dL 3.6 Sign Out No HPI General Mode of arrival: ambulatory . Date/Time Provider Initiated Documentation: 04/29/22 00:03 . Limitations to Documentation: no limitations . Information obtained by: patient . HPI Narrative: Patient is a 37-year-old female with history of obesity, diabetes type 2, on oral and insulin medications for her diabetes presents for worsening left third toe infection. Patient states she has bilateral distal lower extremity peripheral neuropathy worse in her feet. She states for the past 10 days she noticed an ulcer on her left third toe which has been progressively worsening. She has had amputation of her left first and second toes previously. She saw her mail order clerk Dr. Gabriel 1 week ago for this left third toe ulcer and was started on Keflex which he has been taking for 1 week. She states the overall swelling and pain around her toe is worsening. She denies any known fever. Related Data Home Medications Medication Instructions Recorded Confirmed gabapentin 300 mg tablet 300 - 900 mg PO DIRECTED 01/24/21 04/29/22 lorazepam 0.5 mg tablet 0.5 mg PO BID PRN 01/24/21 04/29/22 empagliflozin 10 mg tablet 10 mg PO DAILY 01/28/21 04/29/22 (Jardiance) omeprazole 20 mg capsule,delayed 40 mg PO DAILY #60 caps 01/28/21 04/29/22 release promethazine 25 mg rectal 25 mg OR ONCE #12 ea 03/08/21 04/29/22 suppository tramadol 50 mg tablet 50 mg PO PRN PRN 09/12/21 04/29/22 metoclopramide HCl 10 mg tablet 10 mg PO Q6H PRN #10 tabs 11/17/21 04/29/22 (Reglan) insulin aspart U-100 100 unit/mL 9 unit subcut TID 01/14/22 04/29/22 (3 mL) subcutaneous pen (Novolog Flexpen U-100 Insulin aspart) insulin glargine 100 unit/mL (3 40 unit subcut HS 01/14/22 04/29/22 mL) subcutaneous pen (Lantus Solostar U-100 Insulin) promethazine 25 mg tablet 25 mg PO TID PRN nausea and 02/06/22 04/29/22 vomiting #7 tabs ondansetron 4 mg disintegrating 4 mg PO Q6H PRN nausea and 04/09/22 04/29/22 tablet vomiting #10 tabs clindamycin HCl 150 mg capsule 450 mg PO TID 7 days #63 caps 04/29/22 04/29/22 blood-glucose sensor (Dexcom G6 #6 ea 05/03/22 Sensor device) Previous Rx's Medication Instructions Recorded omeprazole 20 mg capsule,delayed 40 mg PO DAILY #60 caps 01/28/21 release promethazine 25 mg rectal 25 mg OR ONCE #12 ea 03/08/21 suppository metoclopramide HCl 10 mg tablet 10 mg PO Q6H PRN #10 tabs 11/17/21 (Reglan) promethazine 25 mg tablet 25 mg PO TID PRN nausea and 02/06/22 vomiting #7 tabs ondansetron 4 mg disintegrating 4 mg PO Q6H PRN nausea and 04/09/22 tablet vomiting #10 tabs clindamycin HCl 150 mg capsule 450 mg PO TID 7 days #63 caps 04/29/22 blood-glucose sensor (Dexcom G6 #6 ea 05/03/22 Sensor device) Allergies Allergy/AdvReac Type Severity Reaction Status Date / Time ibuprofen [From Advil] Allergy Severe throat Verified 04/22/22 13:30 closes pomegranate Allergy Severe Anaphylaxis Verified 04/22/22 13:30 citalopram AdvReac Severe Bodily harm Verified 04/22/22 13:30 General Stated Complaint: GenMedical ARNOLD: 3 Review of Systems All systems reviewed & are unremarkable except as noted in HPI and below Constitutional Constitutional: Reports as per HPI, Denies chills and Denies fever(s) Eyes Eyes: Denies blurry vision ENT Ears, Nose, Mouth, and Throat: Denies dizziness, Denies sore throat and Denies throat swelling Cardiovascular Cardiovascular: Denies chest pain and Denies dyspnea Respiratory Respiratory: Denies cough and Denies dyspnea Gastrointestinal Gastrointestinal: Denies abdominal pain, Denies diarrhea and Denies vomiting Genitourinary Genitourinary: Denies hematuria and Denies dysuria Musculoskeletal Musculoskeletal: Denies back pain and Denies numbness Integumentary/Breasts Skin/Breast: Reports lesions (Left 3rd toe) and Denies rash Neurologic Neurologic: Denies dizziness, Denies localized weakness and Denies numbness Allergic/Immunologic Allergic/Immunologic: Denies throat swelling PFSH All Active Problems (Updated 05/02/22 @ 12:39 by Lara Mcmullen NP) Blood glucose elevated (Acute) Cellulitis of third toe, left (Chronic) Osteomyelitis of third toe of left foot (Acute) Osteomyelitis (Acute) Infection of toe (Acute) Amputation of toe of left foot (Acute) Ulcer of other part of foot (Acute) Type 2 diabetes mellitus with diabetic neuropathy (Chronic) Type 2 diabetes mellitus (Chronic) Hypokalemia (Acute) Hypomagnesemia (Acute) Vomiting (Acute) Gastroparesis (Chronic) Vomiting (Acute) Acute dehydration (Acute) Nausea and vomiting (Acute) IDDM (insulin dependent diabetes mellitus) (Chronic) Tobacco abuse (Acute) Cannabinoid hyperemesis syndrome (Acute) DVT prophylaxis (Acute) Discharge planning issues (Acute) Upper GI bleeding (Acute) UTI (urinary tract infection) (Acute) Medical History Anxiety and depression Diabetes Type 1 Diabetic neuropathy History of cellulitis toe Suicide attempt Surgical History Amputation of left great toe H/O tubal ligation Family History Paternal Grandmother Heart disease Diabetes Maternal Aunt Hypertension Breast cancer maternal great aunt Maternal Grandfather Hypertension Maternal Grandmother Breast cancer Maternal Aunt No problems noted. Maternal Cousin Breast cancer Maternal Cousin Breast cancer Maternal Cousin Breast cancer Social History Smoking/Tobacco Use Status: Current every day Tobacco Type: cigarettes Smoking risk assessment performed?: Yes Alcohol Intake: never Drug use: Socially Substance use type: marijuana Do you feel safe at home: Yes Do you feel safe in your relationship?: Yes Additional Social history: at bedside Exam Const General: cooperative and no acute distress Orientation: alert, awake and oriented x3 HENMT Head: normal to inspection Mouth: oral mucosae normal Eyes General: appearance normal, both eyes and all related structures Neck Neck: normal visual inspection Resp Effort & Inspection: normal respiratory effort and able to speak in complete sentences Auscultation: clear to auscultation bilaterally Cardio Rate: regular rate Rhythm: regular rhythm Skin General skin exam: no rashes or lesions noted Neuro General: patient alert, patient awake and patient oriented x3 Motor: muscle tone normal throughout Extrem Ankle/foot/toe images: 1. 1x1cm ulcer tip of toe with pus drainage within wound. There is scaling of tissue just proximal to ulcer on tip. There is moderate edema of the left third toe. There is no significant surrounding erythema or fluctuance. Other: Left DP/PT pulses intact. Psych Appearance: grossly normal Affect: normal affect Course Vital Signs Vital signs: Vital Signs Temperature 97.5 F L 04/29/22 00:04 Pulse 126 H 04/29/22 00:04 Respiratory Rate 16 04/29/22 00:04 Blood Pressure 132/86 04/29/22 00:04 Pulse Oximetry 100 04/29/22 00:04 Temperature 97.5 F L 04/29/22 00:04 Pulse 126 H 04/29/22 00:04 Respiratory Rate 16 04/29/22 00:04 Respiratory Effort 04/29/22 00:09 Respiratory Depth Normal 04/29/22 00:09 Respiratory Pattern Normal 04/29/22 00:09 Blood Pressure 132/86 04/29/22 00:04 Pulse Oximetry 100 04/29/22 00:04 Oxygen Delivery Method Room Air 04/29/22 00:04 Oxygen Flow Rate 0 04/29/22 00:04 Pain Level 9 04/29/22 00:04
[2022-04-29 00:46] LABS: HCT 41.6 % (36.0-46.0); HGB 14.1 g/dL (11.2-15.7); Lactate 0.6 mmol/L (0.6-1.4); MCH 31.1 pg (27.0-33.0); MCHC 33.9 % (32.0-36.0); MCV 92 fL (80-95); MPV 9.2 fL (8.0-11.0); Platelet Count 460 10^3/uL (130-400); RBC 4.53 10^6/uL (3.93-5.22); RDW 12.2 % (11.7-14.6); RDW-SD 41.2 fL; WBC 15.24 10^3/uL (4.4-10.8)
[2022-04-29] MEDS: ACETAMINOPHEN 1,000 MG/100 ML BTL 400 MG IVPB (00:54)
[2022-04-29] MEDS: Normal Saline 1,000 ML 1000 ML IV (00:54)
[2022-04-29] MEDS: CLINDAMYCIN 600 MG/50 ML BAG 100 MG IVPB (00:54)
[2022-04-29 00:58] LABS: Absolute Eosinophil Count 0.46 10^3/uL (0.0-0.7); Absolute Lymphocyte Count 6.25 10^3/uL (1.2-3.4); Absolute Monocyte Count 1.52 10^3/uL (0.1-0.8); Absolute Neutrophil Count 7.01 10^3/uL (1.2-6.7); Atypical Lymphocytes % 2; Diff Comment Manual Differential; RBC Morphology Normal
[2022-04-29 01:03] LABS: ALT 21 U/L (14-59); AST 14 U/L (15-37); Albumin 3.6 g/dL (3.4-5.0); Alkaline Phosphatase 103 U/L (46-116); Anion Gap 8.5 mmol/L (3-11); BUN 13 mg/dL (7-18); Bilirubin, Total 0.4 mg/dL (0.2-1.0); CO2 28.5 mmol/L (21.0-32.0); CREATININE 0.8 mg/dL (0.55-1.02); Calcium 9.3 mg/dL (8.5-10.1); Chloride 98 mmol/L (98-107); Estimated GFR 97.26 (mL/min/1.73m2); Glucose 208 mg/dL (74-106); Potassium 3.5 mmol/L (3.5-5.1); Sodium 135 mmol/L (136-145); Total Protein 8.1 g/dL (6.4-8.2)
--- NOTE | 2022-04-29 01:39 | DI.VRAD_ITS ---
PROCEDURE INFORMATION: Exam: XR Left Toe(s) Exam date and time: 04/29/2022 12:52 AM Age: 37 years old Clinical indication: Other: Distal 3rd toe infection/ulcer, R/O osteomyelitis; Prior surgery; Surgery date: 6+ months; Surgery type: 1st toe removed TECHNIQUE: Imaging protocol: Radiologic exam of the Left toes. Views: Minimum 2 views. COMPARISON: MR LOWER EXTREMITY LT WO/W 01/13/2022 7:51 AM FINDINGS: Bones/joints: Patchy lytic changes of the terminal 3rd tuft phalanx possible pathologic fracture 1st phalangeal amputations. Distal 2nd phalangeal amputation Soft tissues: Distal 3rd toe swelling and possible ulcer/wound IMPRESSION: Findings suspect for osteomyelitis in the distal 3rd toe/tuft as described. Underlying pathologic fracture not excluded Dictated and Authenticated by: Nomi Martinez MD. Ordering:LUBA Bonilla MD
[2022-04-29] MEDS: cefTRIAXone 2 GM/50 ML BAG IVPB (02:12)
[2022-04-29] MEDS: VANCOMYCIN 2,000 MG in Normal Saline 500 ML 250 MG IVPB (02:35)
[2022-04-29] MEDS: Clindamycin 150 MG CAP, 12 CAPS/BTL 450 MG PO (04:43)
[2022-04-29 04:45] VITALS: BP 142/72; PULSE 93; RESP 12; TEMP 36.3
== END 2022-04-29 04:43 | disposition left against medical advice (07) ==
PROVIDERS: Emergency Provider Physician Assistant
DX: L03.032 Cellulitis of left toe (principal); M86.8X7 Other osteomyelitis, ankle and foot; E11.622 Type 2 diabetes mellitus with other skin ulcer; L97.529 Non-pressure chronic ulcer of other part of left foot with unspecified severity; E11.40 Type 2 diabetes mellitus with diabetic neuropathy, unspecified; F17.210 Nicotine dependence, cigarettes, uncomplicated; Z79.4 Long term (current) use of insulin
CPT/HCPCS: 36415; 80053; 81025; 96361; 96365; 96366; 96367; 96368; 96375; 99284; 73660; 83605; 85025; J0131

== ENCOUNTER 2022-04-29 20:42 | Inpatient (IN) | payer BC, MEDICAID, SELFPAY ==
[2022-04-29 20:46] VITALS: BP 133/81; PULSE 123; RESP 16; TEMP 36.9
--- NOTE | 2022-04-29 21:01 | W.ED.GENAD ---
Discharge Plan Disposition Patient Disposition: Admit to [facility] Condition: Stable Discharge Details Clinical Impression: Osteomyelitis Admit Date/Time: 04/29/22 21:17 Admit Provider: Broderick Rubi Attending Provider: Broderick Rubi Primary Care Provider: Unknown,Unknown ED Provider: Arturo Grigsby Medical Decision Making 37-year-old female seen earlier today for 1 week history of left third toe infection. She has a history of diabetes and earlier this morning was diagnosed with osteomyelitis of the affected toe by x-ray and blood work. Patient has been on Keflex and was given doses of vancomycin and ceftriaxone. She elected to leave AGAINST MEDICAL ADVICE due to childcare considerations and was placed on clindamycin which she has been taking orally. Patient returns now with ongoing pain in the left third toe. She is desirous of admission. She is slightly tachycardic and has an obvious infection of the affected digit, but is otherwise well-appearing. Repeat blood cultures obtained. Lactic acid today is normal at 0.7. Dose of vancomycin ordered. Case discussed with Dr. Rubi and patient to be admitted. Sign Out No HPI General Mode of arrival: ambulatory. Date/Time Provider Initiated Documentation: 04/29/22 20:45. Limitations to Documentation: no limitations. Information obtained by: patient. History of Present Illness 37 year old F presents to the emergency department with the chief complaint of Toe infection, #3 L foot, described as moderate, Quality is described as dull and constant, and is localized to the left and lower extremity. Patient reports no radiation. Patient started experiencing this day(s) and it has been constant. No relieving factors improve symptom(s), No exacerbating factors reported . Patient notes denies fever/chills. Patient did receive the following treatments prior to arrival, none Related Data Home Medications Medication Instructions Recorded Confirmed gabapentin 300 mg tablet 300 - 900 mg PO DIRECTED 01/24/21 04/29/22 lorazepam 0.5 mg tablet 0.5 mg PO BID PRN 01/24/21 04/29/22 empagliflozin 10 mg tablet 10 mg PO DAILY 01/28/21 04/29/22 (Jardiance) omeprazole 20 mg capsule,delayed 40 mg PO DAILY #60 caps 01/28/21 04/29/22 release promethazine 25 mg rectal 25 mg FL ONCE #12 ea 03/08/21 04/29/22 suppository tramadol 50 mg tablet 50 mg PO PRN PRN 09/12/21 04/29/22 metoclopramide HCl 10 mg tablet 10 mg PO Q6H PRN #10 tabs 11/17/21 04/29/22 (Reglan) insulin aspart U-100 100 unit/mL 9 unit subcut TID 01/14/22 04/29/22 (3 mL) subcutaneous pen (Novolog Flexpen U-100 Insulin aspart) insulin glargine 100 unit/mL (3 40 unit subcut HS 01/14/22 04/29/22 mL) subcutaneous pen (Lantus Solostar U-100 Insulin) promethazine 25 mg tablet 25 mg PO TID PRN nausea and 02/06/22 04/29/22 vomiting #7 tabs ondansetron 4 mg disintegrating 4 mg PO Q6H PRN nausea and 04/09/22 04/29/22 tablet vomiting #10 tabs clindamycin HCl 150 mg capsule 450 mg PO TID 7 days #63 caps 04/29/22 04/29/22 Previous Rx's Medication Instructions Recorded omeprazole 20 mg capsule,delayed 40 mg PO DAILY #60 caps 01/28/21 release promethazine 25 mg rectal 25 mg FL ONCE #12 ea 03/08/21 suppository metoclopramide HCl 10 mg tablet 10 mg PO Q6H PRN #10 tabs 11/17/21 (Reglan) promethazine 25 mg tablet 25 mg PO TID PRN nausea and 02/06/22 vomiting #7 tabs ondansetron 4 mg disintegrating 4 mg PO Q6H PRN nausea and 04/09/22 tablet vomiting #10 tabs clindamycin HCl 150 mg capsule 450 mg PO TID 7 days #63 caps 04/29/22 Allergies Allergy/AdvReac Type Severity Reaction Status Date / Time ibuprofen [From Advil] Allergy Severe throat Verified 04/22/22 13:30 closes pomegranate Allergy Severe Anaphylaxis Verified 04/22/22 13:30 citalopram AdvReac Severe Bodily harm Verified 04/22/22 13:30 General Stated Complaint: Diabetes ARNOLD: 3 Review of Systems Narrative: 6 systems reviewed and otherwise negative PFSH All Active Problems Blood glucose elevated (Acute) Cellulitis of third toe, left (Acute) Osteomyelitis of third toe of left foot (Acute) Osteomyelitis (Acute) Infection of toe (Acute) Amputation of toe of left foot (Acute) Ulcer of other part of foot (Acute) Type 2 diabetes mellitus with diabetic neuropathy (Acute) Type 2 diabetes mellitus (Chronic) Hyponatremia (Acute) Hypokalemia (Acute) Hypomagnesemia (Acute) Vomiting (Acute) Gastroparesis (Chronic) Vomiting (Acute) Acute dehydration (Acute) Nausea and vomiting (Acute) IDDM (insulin dependent diabetes mellitus) (Chronic) Tobacco abuse (Acute) Cannabinoid hyperemesis syndrome (Acute) DVT prophylaxis (Acute) Discharge planning issues (Acute) Upper GI bleeding (Acute) UTI (urinary tract infection) (Acute) Medical History Anxiety and depression Diabetes Type 1 Diabetic neuropathy History of cellulitis toe Suicide attempt Surgical History Amputation of left great toe H/O tubal ligation Family History Paternal Grandmother Heart disease Diabetes Maternal Aunt Hypertension Breast cancer maternal great aunt Maternal Grandfather Hypertension Maternal Grandmother Breast cancer Maternal Aunt No problems noted. Maternal Cousin Breast cancer Maternal Cousin Breast cancer Maternal Cousin Breast cancer Social History Smoking/Tobacco Use Status: Current every day Tobacco Type: cigarettes Smoking risk assessment performed?: Yes Alcohol Intake: never Drug use: Socially Substance use type: marijuana Do you feel safe at home: Yes Do you feel safe in your relationship?: Yes Additional Social history: at bedside Exam Narrative Exam Narrative: GEN: awake, alert, oriented 3. Pleasant, well groomed, interactive. HEAD: Normocephalic, atraumatic EYES: PERRL, EOMI NECK: Full ROM, no JULIANNA, no menigismus CHEST/RESP: Nontender, clear to auscultation bilateral, no wheeze/rhonchi/rales CARDIOVASCULAR: Regular and tachycardic, no murmur, rub jessica. 2+ Rad pulse bilateral ABDOMEN: Soft, nontender, no mass. +Bowel sounds EXT: Full ROM, no edema, erosion/ulceration to the distal portion of the left third toe. Surrounding erythema and edema present. Neuro: Grossly normal neurologic exam, conversant, interactive. Psych: Speech fluent, thoughts congruent, affect normal Course Vital Signs Vital signs: Vital Signs Temperature 36.9 C 04/29/22 20:46 Pulse 123 H 04/29/22 20:46 Respiratory Rate 16 04/29/22 20:46 Blood Pressure 133/81 04/29/22 20:46 Temperature 36.9 C 04/29/22 20:46 Temperature Source Tympanic 04/29/22 20:46 Pulse 123 H 04/29/22 20:46 Respiratory Rate 16 04/29/22 20:46 Respiratory Effort 04/29/22 20:50 Blood Pressure 133/81 04/29/22 20:46 Blood Pressure Position Sitting 04/29/22 20:46 Oxygen Delivery Method Room Air 04/29/22 20:46 Oxygen Flow Rate 0 04/29/22 20:46 Pain Level 8 04/29/22 20:46
[2022-04-29 21:15] LABS: Abs Immature Grans 0.04 10^3/uL (0.0-0.06); Absolute Eosinophil Count 0.46 10^3/uL (0.0-0.7); Absolute Lymphocyte Count 5.37 10^3/uL (1.2-3.4); Basophils % 0.5; HCT 38.7 % (36.0-46.0); HGB 13.2 g/dL (11.2-15.7); Immature Grans % 0.3; Lactate 0.7 mmol/L (0.6-1.4); Lymphocytes % 34.9; MCH 31.4 pg (27.0-33.0); MCHC 34.1 % (32.0-36.0); MCV 92 fL (80-95); MPV 9.2 fL (8.0-11.0); Monocytes % 8.1; Neutrophils % 53.2; Platelet Count 435 10^3/uL (130-400); RBC 4.21 10^6/uL (3.93-5.22); RDW 12.2 % (11.7-14.6); RDW-SD 41.2 fL
[2022-04-29 21:24] LABS: Absolute Basophil Count 0.08 10^3/uL (0.0-0.2); Absolute Monocyte Count 1.25 10^3/uL (0.1-0.8); Absolute Neutrophil Count 8.19 10^3/uL (1.2-6.7)
[2022-04-29 21:28] LABS: Source Nasal/Nares
[2022-04-29 21:30] LABS: Anion Gap 3.2 mmol/L (3-11); BUN 11 mg/dL (7-18); CO2 30.8 mmol/L (21.0-32.0); CREATININE 0.8 mg/dL (0.55-1.02); Chloride 98 mmol/L (98-107); Estimated GFR 97.26 (mL/min/1.73m2); Glucose 199 mg/dL (74-106); Potassium 3.5 mmol/L (3.5-5.1); Sodium 132 mmol/L (136-145)
[2022-04-29 21:34] LABS: Diff Comment Agrees w/ Instrument; RBC Morphology Normal
[2022-04-29] MEDS: VANCOMYCIN 1,500 MG in Normal Saline 250 ML 166.6666 MG IVPB (21:36)
[2022-04-29 21:59] LABS: COVID-19 PCR Negative (Negative)
[2022-04-29] MEDS: traMADol 50 MG TAB PO (21:59)
[2022-04-29 22:15] VITALS: BP 115/81; PULSE 107; RESP 16; TEMP 35.4; O2SAT 100
--- NOTE | 2022-04-29 22:51 | HPE_ITS ---
Date of service: 04/29/22 Time of Service: 23:10 Assessment and Plan Assessment and plan (1) Osteomyelitis of third toe of left foot: Start date: 04/29/22 Status: Acute Assessment and plan: This is a 37-year lady with insulin-dependent Type 2 diabetes mellitus and peripheral neuropathy who has recurrent damage to her left foot most likely from trauma. Now she has a left third toe osteomyelitis by plain film imaging and will be seeing podiatry for further evaluation of debridement and possible amputation. She has already had an ablation of her first and second toe in the same foot. She has all of her toes on her right foot. IV antibiotic therapy wi th vancomycin and discontinuation of oral clindamycin. Podiatry consultation for evaluation of wound. (2) Cellulitis of third toe, left: Status: Chronic Assessment and plan: Discontinue oral therapy and start vancomycin/ceftriaxone with evaluation by podiatry for surgical intervention and possible amputation. This is a chronic nonhealing wound. It is most likely being traumatized because of her peripheral neuropathy and she has mild discomfort but not to palpation with tramadol keep ing her comfortable. (3) Type 2 diabetes mellitus with diabetic neuropathy: Status: Chronic Assessment and plan: Patient has had diabetes since age of 15 and is type II but poorly controlled over time with neuropathy. Glucometer will be checked before meals and at bedtime with short acting insulin coverage. (4) Hyponatremia: Status: Chronic Assessment and plan: Possibly associated with acute infection and chronically with hyperglycemia with patient having a history of electrolyte abnormalities as well. IV hydration with normal saline as tolerated and fluid restriction as most of her treatment. Long-term follow-up with PCP on her chronic hyponatremia. History of Present Illness History of Present Illness Chief Complaint: Left third toe swelling with chronic cellulitis Narrative: This is a 37-year-old female patient who was seen earlier the day of admission in the ED with a history of diabetes and left third toe swelling. She was diag nosed with osteomyelitis by plain film imaging and clinical picture. She had been on Keflex as outpatient for treatment and after evaluation in the ED early the day of admission was given a dose of vancomycin and ceftriaxone but left AGAINST MEDICAL ADVICE being given clindamycin for oral therapy. She had to go home to take care of her children. She now returns to the ED for evaluation and initiation of IV antibiotic therapy with podiatry consultation and probable eventual amputation of the third toe. She is not having pain with neuropathy secondary to her diabetes. She denies any fever. She had had slight tachycardia and leukocytosis with elevated WBC as well as mild hyponatremia whic h would be treated with IV fluids. She is a full code. Review of Systems Narrative: 13 point review of systems otherwise unrevealing or stable. FOR[facility]LY [facility] All Active Problems (Updated 04/30/22 @ 07:37 by Broderick Rubi) Blood glucose elevated (Acute) Cellulitis of third toe, left (Chronic) Osteomyelitis of third toe of left foot (Acute) Osteomyelitis (Acute) Infection of toe (Acute) Amputation of toe of left foot (Acute) Ulcer of other part of foot (Acute) Type 2 diabetes mellitus with diabetic neuropathy (Chronic) Type 2 diabetes mellitus (Chronic) Hyponatremia (Chronic) Hypokalemia (Acute) Hypomagnesemia (Acute) Vomiting (Acute) Gastroparesis (Chronic) Vomiting (Acute) Acute dehydration (Acute) Nausea and vomiting (Acute) IDDM (insulin dependent diabetes mellitus) (Chronic) Tobacco abuse (Acute) Cannabinoid hyperemesis syndrome (Acute) DVT prophylaxis (Acute) Discharge planning issues (Acute) Upper GI bleeding (Acute) UTI (urinary tract infection) (Acute) Medical History Anxiety and depression Diabetes Type 1 Diabetic neuropathy History of cellulitis toe Suicide attempt Surgical History Amputation of left great toe H/O tubal ligation Family History Paternal Grandmother Heart disease Diabetes Maternal Aunt Hypertension Breast cancer maternal great aunt Maternal Grandfather Hypertension Maternal Grandmother Breast cancer Maternal Aunt No problems noted. Maternal Cousin Breast cancer Maternal Cousin Breast cancer Maternal Cousin Breast cancer Social History Smoking/Tobacco Use Status: Current every day Tobacco Type: cigarettes Smoking risk assessment performed?: Yes Alcohol Intake: never Drug use: Socially Substance use type: marijuana Do you feel safe at home: Yes Do you feel safe in your relationship?: Yes Additional Social history: at bedside Meds Allergies and Home Medications Allergies Allergy/AdvReac Type Severity Reaction Status Date / Time ibuprofen [From Advil] Allergy Severe throat Verified 04/22/22 13:30 closes pomegranate Allergy Severe Anaphylaxis Verified 04/22/22 13:30 citalopram AdvReac Severe Bodily harm Verified 04/22/22 13:30 Home Medications Medication Instructions Recorded Confirmed Type gabapentin 300 mg tablet 300 - 900 mg PO DIRECTED 01/24/21 04/29/22 History lorazepam 0.5 mg tablet 0.5 mg PO BID PRN 01/24/21 04/29/22 History empagliflozin 10 mg tablet 10 mg PO DAILY 01/28/21 04/29/22 History (Jardiance) omeprazole 20 mg capsule,delayed 40 mg PO DAILY #60 caps 01/28/21 04/29/22 Rx release promethazine 25 mg rectal 25 mg NM ONCE #12 ea 03/08/21 04/29/22 Rx suppository tramadol 50 mg tablet 50 mg PO PRN PRN 09/12/21 04/29/22 History metoclopramide HCl 10 mg tablet 10 mg PO Q6H PRN #10 tabs 11/17/21 04/29/22 Rx (Reglan) insulin aspart U-100 100 unit/mL 9 unit subcut TID 01/14/22 04/29/22 History (3 mL) subcutaneous pen (Novolog Flexpen U-100 Insulin aspart) insulin glargine 100 unit/mL (3 40 unit subcut HS 01/14/22 04/29/22 History mL) subcutaneous pen (Lantus Solostar U-100 Insulin) promethazine 25 mg tablet 25 mg PO TID PRN nausea and 02/06/22 04/29/22 Rx vomiting #7 tabs ondansetron 4 mg disintegrating 4 mg PO Q6H PRN nausea and 04/09/22 04/29/22 Rx tablet vomiting #10 tabs clindamycin HCl 150 mg capsule 450 mg PO TID 7 days #63 caps 04/29/22 04/29/22 Rx Exam Narrative Exam Narrative: General: Patient appears appropriate for age, short stature and moderately obese, alert and oriented x3. She has no acute distress. HEENT: Normocephalic, eyes with pupils equal and react to light symmetrically, extraocular movement intact and sclera anicteric. Oropharynx with moist mucosa. Neck: Supple without JVD. Back: Stooped posture without CVA tenderness. Lungs: Clear to auscultation percussion. Breast: Exam deferred. Heart: Regular rate and rhythm with no appreciable murmur or gallop though at times with fast heart rate she has a slight gallop which appears to be an S4. Abdomen: Obese contour, soft and nontender to palpation with no palpable hepatosplenomegaly. Genitalia/rectal: Exam deferred. Extremity: Moderate nonpitting edema lower extremities with left foot having dry bandage and swollen third toe though not visually inspected without fluctuance to palpation and no tenderness with patient having decreased sensation in both feet. Left first and second toe have been amputated and dressing was not removed to inspect amputation sites. Patient states that these are clean and dry. Fair capillary refill. No clubbing or cyanosis. Skin: Pale, warm and dry. Neuro: Cranial nerves II through XII gross intact, no focalizing motor deficits. Decreased sensation both lower extremities and stocking-like pattern. Psych: Normal affect and mood. Remote and recent memory grossly intact. No abnormal thought processes. Results Imaging Imaging Studies: XR TOE LT THIRD EXAM:? XR TOE LT THIRD CLINICAL HISTORY:? distal 3rd toe infection/ulcer, r/o osteomyelitis TECHNIQUE:? COMPARISON:? CR,XR XR FOOT LT COMPLETE from 11/16/2021 FINDINGS: Three views were obtained.? Note is made of prior amputations at the 1st MTP joint and the PIP joint of the 2nd toe.? There is reportedly a clinical history suggesting infectious process of the 3rd toe.? The tuft of the distal phalanx of the 3rd toe shows significant poorly defined bony resorption consistent with osteomyelitis. No other significant bony abnormality seen. IMPRESSION: The appearance is suggestive of osteomyelitis of the tuft of the distal phalanx of the 3rd toe.? Pathological fracture may be present as well. Labs Result diagrams: 04/29/22 21:10 04/29/22 21:10 Labs: Laboratory Results - last 24 hr 04/29/22 04/29/22 04/29/22 21:10 21:10 21:10 WBC 15.40 H RBC 4.21 Hgb 13.2 Hct 38.7 MCV 92 MCH 31.4 MCHC 34.1 RDW 12.2 Plt Count 435 H MPV 9.2 Immature Gran % 0.3 Neutrophils % 53.2 Lymphocytes % 34.9 Monocytes % 8.1 Eosinophils % 3.0 Basophils % 0.5 Nucleated RBC % 0.0 Absolute Neutrophils 8.19 H Absolute Lymphocytes 5.37 H Absolute Monocytes 1.25 H Absolute Eosinophils 0.46 Absolute Basophils 0.08 RBC Morphology Normal VBG Lactate 0.7 Sodium 132 L Potassium 3.5 Chloride 98 Carbon Dioxide 30.8 Anion Gap 3.2 BUN 11 Creatinine 0.8 Est GFR (CKD-EPI 2020) 97.26 Glucose 199 H Calcium 9.0 COVID-19 Source SARS-CoV-2 (PCR) 04/29/22 21:25 WBC RBC Hgb Hct MCV MCH MCHC RDW Plt Count MPV Immature Gran % Neutrophils % Lymphocytes % Monocytes % Eosinophils % Basophils % Nucleated RBC % Absolute Neutrophils Absolute Lymphocytes Absolute Monocytes Absolute Eosinophils Absolute Basophils RBC Morphology VBG Lactate Sodium Potassium Chloride Carbon Dioxide Anion Gap BUN Creatinine Est GFR (CKD-EPI 2020) Glucose Calcium COVID-19 Source Nasal/Nares SARS-CoV-2 (PCR) Negative Last Vital Signs Temp 35.4 C L 04/29/22 22:15 Pulse 107 H 04/29/22 22:15 Resp 16 04/29/22 22:15 BP 115/81 04/29/22 22:15 Pulse Ox 100 04/29/22 22:15
[2022-04-30] MEDS: Enoxaparin 40 MG/0.4 ML SYR SC ×2 (00:32→21:55)
[2022-04-30] MEDS: Normal Saline 1,000 ML 150 ML IV ×2 (00:32→07:13)
[2022-04-30] MEDS: Normal Saline Flush 10 ML SYR IVP ×3 (00:32→21:56)
[2022-04-30] MEDS: Gabapentin 300 MG CAP 900 MG PO (00:32)
[2022-04-30 02:50] VITALS: BP 106/64; PULSE 76; RESP 18; TEMP 36.1; O2SAT 96
[2022-04-30 07:34] LABS: HCT 36.9 % (36.0-46.0); HGB 12.5 g/dL (11.2-15.7); MCHC 33.9 % (32.0-36.0); MCV 92 fL (80-95); MPV 9.2 fL (8.0-11.0); Platelet Count 408 10^3/uL (130-400); RBC 4.03 10^6/uL (3.93-5.22); RDW 12.1 % (11.7-14.6); WBC 13.35 10^3/uL (4.4-10.8)
[2022-04-30 08:06] VITALS: BP 116/73; PULSE 113; RESP 20; TEMP 36.4; O2SAT 99
[2022-04-30 08:08] LABS: ALT 15 U/L (14-59); AST 10 U/L (15-37); Albumin 2.7 g/dL (3.4-5.0); Alkaline Phosphatase 79 U/L (46-116); BUN 8 mg/dL (7-18); Bilirubin, Total 0.2 mg/dL (0.2-1.0); CREATININE 0.6 mg/dL (0.55-1.02); Calcium 8.4 mg/dL (8.5-10.1); Chloride 104 mmol/L (98-107); Estimated GFR 118.49 (mL/min/1.73m2); Glucose 206 mg/dL (74-106); Magnesium 1.6 mg/dL (1.8-2.4); Potassium 3.8 mmol/L (3.5-5.1); Sodium 137 mmol/L (136-145); Total Protein 6.3 g/dL (6.4-8.2)
[2022-04-30] MEDS: Gabapentin 300 MG CAP PO (08:16)
[2022-04-30] MEDS: Acetaminophen 325 MG TAB PO ×3 (08:16→21:54)
[2022-04-30] MEDS: Omeprazole 20 MG CAPCR 40 MG PO (08:16)
[2022-04-30] MEDS: traMADol 50 MG TAB PO ×3 (08:16→21:54)
[2022-04-30] MEDS: Insulin Aspart 300 UNITS/3 ML PEN SC ×4 (08:16→21:55)
--- NOTE | 2022-04-30 08:42 | PDOC.CMIN ---
- If Service Date Differs Date of service: 04/30/22 Time of Service: 08:42 Care Management Initial Assess REASON FOR HOSPITALIZATION:: osteomyelitis left third toe PAST MEDICAL HISTORY/PAST SURGICAL HISTORY:: All Active Problems (Updated 04/30/22 @ 07:37 by Broderick Rubi). Blood glucose elevated (Acute). Cellulitis of third toe, left (Chronic). Osteomyelitis of third toe of left foot (Acute). Osteomyelitis (Acute). Infection of toe (Acute). Amputation of toe of left foot (Acute). Ulcer of other part of foot (Acute). Type 2 diabetes mellitus with diabetic neuropathy (Chronic). Type 2 diabetes mellitus (Chronic). Hyponatremia (Chronic). Hypokalemia (Acute). Hypomagnesemia (Acute). Vomiting (Acute). Gastroparesis (Chronic). Vomiting (Acute). Acute dehydration (Acute). Nausea and vomiting (Acute). IDDM (insulin dependent diabetes mellitus) (Chronic). Tobacco abuse (Acute). Cannabinoid hyperemesis syndrome (Acute). DVT prophylaxis (Acute). Discharge planning issues (Acute). Upper GI bleeding (Acute). UTI (urinary tract infection) (Acute). Medical History . Anxiety and depression. Diabetes. Type 1. Diabetic neuropathy. History of cellulitis. toe. Suicide attempt. Surgical History . Amputation of left great toe. H/O tubal ligation PREVIOUS FUNCTIONAL STATUS/SOCIAL/FAMILY SUPPORTS:: Stella relocated to [place], [place] from [place] with her Fermin and 4 children about a year ago. They live in a single family [facility] with their children, her [id number] and her [id number]'s sister. Stella has 5 children now. They fostered, then adopted, 7 and 17 year old siblings. They recently took in a 5 year old boy that she is fostering short term and plans to adopt a 13 year old girl she is fostering. She and her have an 11 year old girl of their own. 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 CURRENT FUNCTIONAL STATUS:: Stella was sitting up in bed when CM met with her.She was very pleasant and friendly and engaged easily with CM. Stella talked about her multi-generational family household and the children she has fostered and/or adopted. She shared that she and her were unable to have children on their own and have found fulfillment with fostering and adoption. 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 Stella also talked about her diabetes and challenges with glucose control. She has a CGM but even with that her blood sugars fluctuate from high readings at night to normal or low normal readings during the day. She watches her intake carefully and informed CM that she needs to connect with a new bioinformatics developer for consideration for an insulin pump. ADVANCE DIRECTIVES:: none on file Has patient been provided with info about the portal/API?: Yes Did the patient sign up for the portal?: No CODE STATUS:: Full Code INSURANCE COVERAGE / FINANCIAL ISSUES:: BS. medicaid CURRENT HOME/COMMUNITY SERVICES/EQUIPMENT:: none PRIMARY CARE PHYSICIAN:: None locally. Would like to establish in this area. POTENTIAL DISCHARGE NEEDS:: follow up with PCP and plan of care PATIENT/FAMILY EDUCATION NEEDS:: Review of discharge instructions, medications, glucose monitoring, activity, limitations, follow up gualberto, Ask Me Three TRANSPORTATION:: via private vehicle with family PLAN:: Stella will be discharged home with no new services unless she needs home infusions for IV antibitotics. She will follow up with her PCP and plan of care anfd transport with family. CM will continue to support Stella and assess for ongoing discharge concerns.
[2022-04-30 09:05] LABS: HCG Qual (Serum) Negative
[2022-04-30] MEDS: cefTRIAXone 2 GM/50 ML BAG IVPB (09:22)
[2022-04-30] MEDS: VANCOMYCIN/WATER (PEG) 1.25 GM/250 ML BAG IV ×2 (10:57→18:05)
[2022-04-30 11:19] VITALS: BP 131/89; PULSE 104; RESP 18; TEMP 36.4; O2SAT 96
--- NOTE | 2022-04-30 13:39 | CHAPLAIN ---
I had a brief visit with Cristy who is here with an infected toe. She was sitting up in bed. I introduced myself, explained my role and offered support. According to ED note, Cristy moved to [place] recently with her four children and , and moved into her mother in law's house. Cristy is a stay at home mom for her kids and is independent in the community.
[2022-04-30 15:17] VITALS: BP 119/74; PULSE 95; RESP 16; TEMP 36.6; O2SAT 100
--- NOTE | 2022-04-30 16:48 | W.PM.PROGNOT ---
Date of Service Date of service: 04/30/22 Time of Service: 16:48 Assessment and Plan Assessment and plan (1) Osteomyelitis of third toe of left foot: Start date: 04/29/22 Status: Acute Assessment and plan: failed outpatient treatment now on ceftriaxone and vanco day 2 followed by podiatry follow inflammatory markers (2) Cellulitis of third toe, left: Status: Chronic Assessment and plan: see above (3) Type 2 diabetes mellitus with diabetic neuropathy: Status: Chronic Assessment and plan: poorly controlled over time with neuropathy, A1C 10.3 early April blood sugar checks before meals and at bedtime with short acting insulin coverage. diabetic diet. lantus 10 units at HS (takes 40 units at home), adjust as needed. (4) Hyponatremia: Status: Chronic Assessment and plan: Possibly associated with acute infection and chronically with hyperglycemia with patient having a history of electrolyte abnormalities. resolved after IV hydration. (5) DVT prophylaxis: Status: Acute Assessment and plan: enoxaparin (6) Discharge planning issues: Status: Acute Assessment and plan: home with no services when medically stable. discussed with DR Hodgson Subjective Subjective Patient reports: no new complaints, feels better, tolerating liquids well, tolerating a regular diet, voiding w/o difficulty, bowel movement and afebrile Objective Last Vital Signs Temp 36.6 C 04/30/22 15:17 Pulse 95 H 04/30/22 15:17 Resp 16 04/30/22 15:17 BP 119/74 04/30/22 15:17 Pulse Ox 100 04/30/22 15:17 Laboratory Results - last 24 hr 04/29/22 04/29/22 04/29/22 21:10 21:10 21:10 WBC 15.40 H RBC 4.21 Hgb 13.2 Hct 38.7 MCV 92 MCH 31.4 MCHC 34.1 RDW 12.2 Plt Count 435 H MPV 9.2 Immature Gran % 0.3 Neutrophils % 53.2 Lymphocytes % 34.9 Monocytes % 8.1 Eosinophils % 3.0 Basophils % 0.5 Nucleated RBC % 0.0 Absolute Neutrophils 8.19 H Absolute Lymphocytes 5.37 H Absolute Monocytes 1.25 H Absolute Eosinophils 0.46 Absolute Basophils 0.08 RBC Morphology Normal VBG Lactate 0.7 Sodium 132 L Potassium 3.5 Chloride 98 Carbon Dioxide 30.8 Anion Gap 3.2 BUN 11 Creatinine 0.8 Est GFR (CKD-EPI 2020) 97.26 Glucose 199 H Calcium 9.0 Magnesium Total Bilirubin AST ALT Alkaline Phosphatase Total Protein Albumin Serum HCG, Qual COVID-19 Source SARS-CoV-2 (PCR) 04/29/22 04/30/22 04/30/22 21:25 07:15 07:15 WBC 13.35 H RBC 4.03 Hgb 12.5 Hct 36.9 MCV 92 MCH 31.0 MCHC 33.9 RDW 12.1 Plt Count 408 H MPV 9.2 Immature Gran % Neutrophils % Lymphocytes % Monocytes % Eosinophils % Basophils % Nucleated RBC % Absolute Neutrophils Absolute Lymphocytes Absolute Monocytes Absolute Eosinophils Absolute Basophils RBC Morphology VBG Lactate Sodium 137 Potassium 3.8 Chloride 104 Carbon Dioxide 26.0 Anion Gap 7.0 BUN 8 Creatinine 0.6 Est GFR (CKD-EPI 2020) 118.49 Glucose 206 H Calcium 8.4 L Magnesium 1.6 L Total Bilirubin 0.2 AST 10 L ALT 15 Alkaline Phosphatase 79 Total Protein 6.3 L Albumin 2.7 L Serum HCG, Qual COVID-19 Source Nasal/Nares SARS-CoV-2 (PCR) Negative 04/30/22 07:15 WBC RBC Hgb Hct MCV MCH MCHC RDW Plt Count MPV Immature Gran % Neutrophils % Lymphocytes % Monocytes % Eosinophils % Basophils % Nucleated RBC % Absolute Neutrophils Absolute Lymphocytes Absolute Monocytes Absolute Eosinophils Absolute Basophils RBC Morphology VBG Lactate Sodium Potassium Chloride Carbon Dioxide Anion Gap BUN Creatinine Est GFR (CKD-EPI 2020) Glucose Calcium Magnesium Total Bilirubin AST ALT Alkaline Phosphatase Total Protein Albumin Serum HCG, Qual Negative COVID-19 Source SARS-CoV-2 (PCR)
[2022-04-30 19:05] VITALS: BP 115/73; PULSE 93; RESP 16; TEMP 36.6; O2SAT 93
[2022-04-30] MEDS: LORazepam 0.5 MG TAB PO (21:54)
[2022-04-30 22:55] VITALS: BP 115/76; PULSE 86; RESP 16; TEMP 36.5; O2SAT 97
[2022-05-01] VITALS (7 sets, daily range): BP systolic 103–122; BP diastolic 62–84; PULSE 74–94; RESP 16–20; TEMP 36.3–36.7; O2SAT 98–99
[2022-05-01] MEDS: VANCOMYCIN/WATER (PEG) 1.25 GM/250 ML BAG IV ×3 (01:43→17:35)
[2022-05-01] MEDS: Normal Saline Flush 10 ML SYR IVP ×2 (01:44→21:50)
[2022-05-01] MEDS: Gabapentin 300 MG CAP PO (07:43)
[2022-05-01] MEDS: Omeprazole 20 MG CAPCR 40 MG PO (07:43)
[2022-05-01] MEDS: cefTRIAXone 2 GM/50 ML BAG IVPB (07:43)
[2022-05-01] MEDS: LORazepam 0.5 MG TAB PO ×2 (07:46→21:49)
[2022-05-01] MEDS: Acetaminophen 325 MG TAB PO ×2 (07:46→12:15)
[2022-05-01] MEDS: Insulin Aspart 300 UNITS/3 ML PEN SC ×4 (07:46→21:51)
[2022-05-01] MEDS: traMADol 50 MG TAB PO ×3 (07:46→21:49)
[2022-05-01 09:21] LABS: Vancomycin, Trough 15.7 ug/mL (10.0-20.0)
--- NOTE | 2022-05-01 11:29 | W.PM.PROGNOT ---
Date of Service Date of service: 05/01/22 Time of Service: 11:29 Assessment and Plan Assessment and plan (1) Osteomyelitis of third toe of left foot: Start date: 04/29/22 Status: Acute Assessment and plan: failed outpatient treatment now on ceftriaxone and vanco day 3 followed by podiatry follow inflammatory markers (2) Cellulitis of third toe, left: Status: Chronic Assessment and plan: see above (3) Type 2 diabetes mellitus with diabetic neuropathy: Status: Chronic Assessment and plan: poorly controlled over time with neuropathy, A1C 10.3 early April blood sugar checks before meals and at bedtime with short acting insulin coverage. diabetic diet. lantus 10 units at HS (takes 40 units at home), adjust as needed. (4) Hyponatremia: Status: Chronic Assessment and plan: Possibly associated with acute infection and chronically with hyperglycemia with patient having a history of electrolyte abnormalities. resolved after IV hydration. (5) DVT prophylaxis: Status: Acute Assessment and plan: enoxaparin (6) Discharge planning issues: Status: Acute Assessment and plan: home with no services when medically stable. discussed with DR Hodgson Subjective Subjective Patient reports: no new complaints, feels better, tolerating liquids well, tolerating a regular diet, voiding w/o difficulty and afebrile; denies shortness of breath Exam Const General: cooperative, healthy appearing, comfortable and no acute distress Nutritional Appearance: obese Orientation: alert, awake and oriented x3 HENMT Head: normal to inspection, normocephalic and atraumatic Mouth: oral mucosae normal Neck Neck: normal visual inspection Chest Chest: normal inspection of the chest Resp Effort & Inspection: normal respiratory effort Cardio Rate: regular rate Rhythm: regular rhythm GI Inspection: normal to inspection Auscultation: normal bowel sounds Skin Lesions: lesion noted (distal 3rd toe left foot) Neuro General: patient alert, patient awake, patient oriented x3 and no focal motor deficits Extrem General: normal to inspection and full ROM Psych Mental Status: mental status grossly normal Speech and Movement: speech and movement normal Mood: congruent mood Affect: normal affect Objective Last Vital Signs Temp 36.7 C 05/01/22 11:28 Pulse 91 H 05/01/22 11:28 Resp 16 05/01/22 11:28 BP 103/71 05/01/22 11:28 Pulse Ox 98 05/01/22 11:28 Laboratory Results - last 24 hr 05/01/22 08:57 Vancomycin Trough 15.7
[2022-05-01 11:30] LABS: Abs Immature Grans 0.02 10^3/uL (0.0-0.06); Absolute Basophil Count 0.06 10^3/uL (0.0-0.2); Absolute Eosinophil Count 0.48 10^3/uL (0.0-0.7); Absolute Lymphocyte Count 3.38 10^3/uL (1.2-3.4); Absolute Monocyte Count 0.72 10^3/uL (0.1-0.8); Absolute Neutrophil Count 5.28 10^3/uL (1.2-6.7); Basophils % 0.6; Eosinophils % 4.8; HCT 39.2 % (36.0-46.0); HGB 13.1 g/dL (11.2-15.7); Immature Grans % 0.2; MCH 30.6 pg (27.0-33.0); MCHC 33.4 % (32.0-36.0); MCV 92 fL (80-95); MPV 9.7 fL (8.0-11.0); Monocytes % 7.2; Neutrophils % 53.2; Platelet Count 442 10^3/uL (130-400); RBC 4.28 10^6/uL (3.93-5.22); RDW 12.1 % (11.7-14.6); RDW-SD 40.6 fL; WBC 9.94 10^3/uL (4.4-10.8)
[2022-05-01 11:34] LABS: ESR 38 mm/hr (0-20)
[2022-05-01 11:42] LABS: C-Reactive Protein 0.85 mg/dL (0.0-0.3)
[2022-05-01 11:43] LABS: ALT 15 U/L (14-59); AST 10 U/L (15-37); Alkaline Phosphatase 90 U/L (46-116); BUN 5 mg/dL (7-18); Bilirubin, Total 0.2 mg/dL (0.2-1.0); CREATININE 0.8 mg/dL (0.55-1.02); Calcium 8.9 mg/dL (8.5-10.1); Chloride 102 mmol/L (98-107); Estimated GFR 97.26 (mL/min/1.73m2); Glucose 279 mg/dL (74-106); Magnesium 1.7 mg/dL (1.8-2.4); Potassium 3.9 mmol/L (3.5-5.1); Sodium 136 mmol/L (136-145)
[2022-05-01] MEDS: MAGNESIUM SULFATE 1 GM/100 ML BAG IVPB (16:18)
[2022-05-01] MEDS: Gabapentin 300 MG CAP 900 MG PO (21:49)
[2022-05-01] MEDS: Enoxaparin 40 MG/0.4 ML SYR SC (21:51)
[2022-05-01] MEDS: Insulin Glargine 300 UNITS/3 ML PEN 10 UNITS SC (22:10)
[2022-05-02] MEDS: VANCOMYCIN/WATER (PEG) 1.25 GM/250 ML BAG IV (01:55)
[2022-05-02] MEDS: Normal Saline Flush 10 ML SYR IVP ×2 (01:56→07:45)
[2022-05-02 03:01] VITALS: BP 116/71; PULSE 85; RESP 18; TEMP 36.3; O2SAT 98
[2022-05-02 06:47] VITALS: BP 98/66; PULSE 93; RESP 17; TEMP 36; O2SAT 97
[2022-05-02 06:48] LABS: Abs Immature Grans 0.03 10^3/uL (0.0-0.06); Absolute Basophil Count 0.06 10^3/uL (0.0-0.2); Absolute Eosinophil Count 0.43 10^3/uL (0.0-0.7); Absolute Neutrophil Count 5.91 10^3/uL (1.2-6.7); Basophils % 0.5; Eosinophils % 3.5; HCT 40.1 % (36.0-46.0); HGB 14.1 g/dL (11.2-15.7); Immature Grans % 0.2; Lymphocytes % 40.2; MCH 31.5 pg (27.0-33.0); MCHC 35.2 % (32.0-36.0); MCV 90 fL (80-95); MPV 9.3 fL (8.0-11.0); Monocytes % 7.1; Neutrophils % 48.5; Platelet Count 445 10^3/uL (130-400); RBC 4.47 10^6/uL (3.93-5.22); RDW 12.1 % (11.7-14.6); RDW-SD 39.9 fL; WBC 12.19 10^3/uL (4.4-10.8)
[2022-05-02 06:52] LABS: Absolute Monocyte Count 0.87 10^3/uL (0.1-0.8)
[2022-05-02 07:22] LABS: ALT 18 U/L (14-59); AST 15 U/L (15-37); Albumin 3.2 g/dL (3.4-5.0); Alkaline Phosphatase 87 U/L (46-116); Anion Gap 8.5 mmol/L (3-11); BUN 9 mg/dL (7-18); Bilirubin, Total 0.3 mg/dL (0.2-1.0); CO2 27.5 mmol/L (21.0-32.0); CREATININE 0.6 mg/dL (0.55-1.02); Calcium 9.1 mg/dL (8.5-10.1); Chloride 102 mmol/L (98-107); Estimated GFR 118.49 (mL/min/1.73m2); Glucose 158 mg/dL (74-106); Magnesium 1.7 mg/dL (1.8-2.4); Potassium 4.1 mmol/L (3.5-5.1); Sodium 138 mmol/L (136-145); Total Protein 7.2 g/dL (6.4-8.2)
[2022-05-02] MEDS: Omeprazole 20 MG CAPCR 40 MG PO (07:44)
[2022-05-02] MEDS: Insulin Aspart 300 UNITS/3 ML PEN SC ×4 (07:45→21:59)
[2022-05-02] MEDS: Gabapentin 300 MG CAP PO (07:45)
[2022-05-02] MEDS: cefTRIAXone 2 GM/50 ML BAG IVPB (07:46)
[2022-05-02] MEDS: MAGNESIUM SULFATE 1 GM/100 ML BAG IVPB (09:37)
--- NOTE | 2022-05-02 09:48 | W.PM.PROGNOT ---
Date of Service Date of service: 05/02/22 Time of Service: 09:48 Assessment and Plan Assessment and plan (1) Osteomyelitis of third toe of left foot: Status: Acute Assessment and plan: failed outpatient treatment now on ceftriaxone and vanco day 3 followed by podiatry - will be see on Tuesday05/03/2022 follow inflammatory markers 0.85 05/01/2022 will repeat 05/03/2022 (2) Cellulitis of third toe, left: Status: Chronic Assessment and plan: see above (3) Type 2 diabetes mellitus with diabetic neuropathy: Status: Chronic Assessment and plan: poorly controlled over time with neuropathy, A1C 10.3 early April blood sugar checks before meals and at bedtime with short acting insulin coverage. diabetic diet. lantus 10 units increased to 20 units at HS (takes 40 units at home), adjust as needed; glucose 279, 158, 271, (4) Hyponatremia: Status: Resolved Assessment and plan: Possibly associated with acute infection and chronically with hyperglycemia with patient having a history of electrolyte abnormalities. resolved after IV hydration. (5) Hypomagnesemia: Start date: 05/02/22 Status: Acute Assessment and plan: 1.7 - repleted (6) DVT prophylaxis: Status: Acute Assessment and plan: enoxaparin (7) Discharge planning issues: Status: Acute Assessment and plan: home with no services when medically stable; Infusion center for IV abx per Podiatry discussed with Dr Foley Subjective Subjective Patient reports: no new complaints, tolerating a regular diet, bowel movement and afebrile; denies diarrhea, nausea, vomiting or shortness of breath Interval history since last seen: Cristy states she is feeling better and would like to go home tomorrow with home infusions. Exam Const General: cooperative, healthy appearing, comfortable and no acute distress Nutritional Appearance: obese Orientation: alert, awake and oriented x3 HENMT Head: normal to inspection, normocephalic and atraumatic Mouth: oral mucosae normal Neck Neck: normal visual inspection Chest Chest: normal inspection of the chest Resp Effort & Inspection: normal respiratory effort Cardio Rate: regular rate Rhythm: regular rhythm GI Inspection: normal to inspection Auscultation: normal bowel sounds Skin Lesions: lesion noted (distal 3rd toe left foot) Neuro General: patient alert, patient awake, patient oriented x3 and no focal motor deficits Extrem General: normal to inspection and full ROM Psych Mental Status: mental status grossly normal Speech and Movement: speech and movement normal Mood: congruent mood Affect: normal affect Objective Last Vital Signs Temp 36.0 C L 05/02/22 06:47 Pulse 93 H 05/02/22 06:47 Resp 17 05/02/22 06:47 BP 98/66 L 05/02/22 06:47 Pulse Ox 97 05/02/22 06:47 Laboratory Results - last 24 hr 05/01/22 05/01/22 05/01/22 08:57 08:57 08:57 WBC 9.94 RBC 4.28 Hgb 13.1 Hct 39.2 MCV 92 MCH 30.6 MCHC 33.4 RDW 12.1 Plt Count 442 H MPV 9.7 Immature Gran % 0.2 Neutrophils % 53.2 Lymphocytes % 34.0 Monocytes % 7.2 Eosinophils % 4.8 Basophils % 0.6 Nucleated RBC % 0.0 Absolute Neutrophils 5.28 Absolute Lymphocytes 3.38 Absolute Monocytes 0.72 Absolute Eosinophils 0.48 Absolute Basophils 0.06 ESR Sodium 136 Potassium 3.9 Chloride 102 Carbon Dioxide 25.0 Anion Gap 9.0 BUN 5 L Creatinine 0.8 Est GFR (CKD-EPI 2020) 97.26 Glucose 279 H Calcium 8.9 Magnesium 1.7 L Total Bilirubin 0.2 AST 10 L ALT 15 Alkaline Phosphatase 90 C-Reactive Protein 0.85 H Total Protein 7.0 Albumin 3.0 L 05/01/22 05/02/22 05/02/22 08:57 06:13 06:13 WBC 12.19 H RBC 4.47 Hgb 14.1 Hct 40.1 MCV 90 MCH 31.5 MCHC 35.2 RDW 12.1 Plt Count 445 H MPV 9.3 Immature Gran % 0.2 Neutrophils % 48.5 Lymphocytes % 40.2 Monocytes % 7.1 Eosinophils % 3.5 Basophils % 0.5 Nucleated RBC % 0.0 Absolute Neutrophils 5.91 Absolute Lymphocytes 4.90 H Absolute Monocytes 0.87 H Absolute Eosinophils 0.43 Absolute Basophils 0.06 ESR 38 H Sodium 138 Potassium 4.1 Chloride 102 Carbon Dioxide 27.5 Anion Gap 8.5 BUN 9 Creatinine 0.6 Est GFR (CKD-EPI 2020) 118.49 Glucose 158 H Calcium 9.1 Magnesium 1.7 L Total Bilirubin 0.3 AST 15 ALT 18 Alkaline Phosphatase 87 C-Reactive Protein Total Protein 7.2 Albumin 3.2 L
[2022-05-02] MEDS: VANCOMYCIN 1,250 MG in Normal Saline 250 ML 166.667 MG IV ×2 (10:55→18:22)
[2022-05-02 11:30] VITALS: BP 96/65; PULSE 89; RESP 18; TEMP 37.1; O2SAT 99
[2022-05-02] MEDS: traMADol 50 MG TAB PO (14:18)
[2022-05-02 15:09] VITALS: BP 109/65; PULSE 92; RESP 18; TEMP 35.9; O2SAT 99
[2022-05-02] MEDS: Normal Saline 500 ML 30 ML IV (18:23)
[2022-05-02 19:50] VITALS: BP 104/63; PULSE 88; RESP 18; TEMP 36.7; O2SAT 97
[2022-05-02] MEDS: Enoxaparin 40 MG/0.4 ML SYR SC (21:58)
[2022-05-02] MEDS: Gabapentin 300 MG CAP 900 MG PO (21:59)
[2022-05-02] MEDS: Insulin Glargine 300 UNITS/3 ML PEN 20 UNITS SC (22:00)
[2022-05-02 22:44] VITALS: BP 105/69; PULSE 87; RESP 18; TEMP 36.4; O2SAT 100
[2022-05-03] MEDS: VANCOMYCIN 1,250 MG in Normal Saline 250 ML 166.667 MG IV ×2 (02:20→10:40)
[2022-05-03 03:24] VITALS: BP 107/63; PULSE 85; RESP 18; TEMP 36.7; O2SAT 97
[2022-05-03] MEDS: Normal Saline Flush 10 ML SYR IVP ×2 (04:09→07:51)
[2022-05-03 07:03] VITALS: BP 94/55; PULSE 82; RESP 15; TEMP 36.1; O2SAT 98
[2022-05-03 07:08] LABS: Abs Immature Grans 0.04 10^3/uL (0.0-0.06); Absolute Basophil Count 0.06 10^3/uL (0.0-0.2); Absolute Eosinophil Count 0.43 10^3/uL (0.0-0.7); Absolute Lymphocyte Count 4.39 10^3/uL (1.2-3.4); Absolute Monocyte Count 1.11 10^3/uL (0.1-0.8); Basophils % 0.5; Eosinophils % 3.4; HCT 39.7 % (36.0-46.0); HGB 14.1 g/dL (11.2-15.7); Immature Grans % 0.3; Lymphocytes % 34.4; MCH 31.5 pg (27.0-33.0); MCHC 35.5 % (32.0-36.0); MCV 89 fL (80-95); MPV 9.3 fL (8.0-11.0); Monocytes % 8.7; Neutrophils % 52.7; Platelet Count 450 10^3/uL (130-400); RBC 4.47 10^6/uL (3.93-5.22); RDW 12.2 % (11.7-14.6); RDW-SD 39.7 fL; WBC 12.77 10^3/uL (4.4-10.8)
[2022-05-03 07:10] LABS: Absolute Neutrophil Count 6.73 10^3/uL (1.2-6.7)
[2022-05-03 07:12] LABS: ESR 38 mm/hr (0-20)
[2022-05-03 07:26] LABS: ALT 34 U/L (14-59); AST 30 U/L (15-37); Albumin 3.3 g/dL (3.4-5.0); Alkaline Phosphatase 90 U/L (46-116); Anion Gap 7.9 mmol/L (3-11); BUN 11 mg/dL (7-18); Bilirubin, Total 0.3 mg/dL (0.2-1.0); C-Reactive Protein 0.32 mg/dL (0.0-0.3); CO2 27.1 mmol/L (21.0-32.0); CREATININE 0.7 mg/dL (0.55-1.02); Calcium 9.3 mg/dL (8.5-10.1); Chloride 102 mmol/L (98-107); Estimated GFR 114.16 (mL/min/1.73m2); Glucose 178 mg/dL (74-106); Potassium 4.2 mmol/L (3.5-5.1); Sodium 137 mmol/L (136-145); Total Protein 7.3 g/dL (6.4-8.2)
[2022-05-03] MEDS: Insulin Aspart 300 UNITS/3 ML PEN SC ×2 (07:52→11:42)
[2022-05-03] MEDS: cefTRIAXone 2 GM/50 ML BAG IVPB (07:52)
[2022-05-03] MEDS: Omeprazole 20 MG CAPCR 40 MG PO (07:53)
[2022-05-03] MEDS: Gabapentin 300 MG CAP PO (07:54)
[2022-05-03 10:03] LABS: Vancomycin, Trough 17.4 ug/mL (10.0-20.0)
[2022-05-03 10:54] VITALS: BP 111/67; PULSE 90; RESP 18; TEMP 36.6; O2SAT 99
--- NOTE | 2022-05-03 11:43 | W.INDIABCONS ---
Date of service: 05/03/22 Time of Service: 11:43 Diabetes Inpatient Consult Reason for Visit: DM2 DESCRIPTION/ASSESSMENT: Cristy was admitted with osteo of 3rd left toe- on IV abx. Hx of toe amputations due to same. Has had DM 2 since age 15. Most recent A1C: 10.3% indicates poor glycemic control. Met with Stella today, she reports that she received a dexcom 6 sensors at previous admission but has had no luck getting a script from her PCP in [place]. Home DM meds: 10 mg jardiance, 9 units aspart TID, 40 u glargine HS. Weight stable with BMI of 34. Cristy takes her insulin as prescribed and is knowledgeable about diet and diabetes however continues to have wide fluctuations - would benefit from CGM and endocrinology referral. At high risk for further complications associated with poorly controlled Dm. INTERVENTION: Hospitalist to write scripts for multiple Dexcom 6 sensors at discharge (uses iphone as reader). Referal placed for Lopez Martinez MD at [facility]- Machine Room Operator. PLAN: Provided my contact information if needs further support/education for optimal glycemic management. Time Spent in Nutritional Counseling and Treatment: 20
--- NOTE | 2022-05-03 15:02 | W.ANESVAS ---
Midline Placement Date Performed: 05/03/22 Procedure Time: 14:44 Requesting Provider: Mukesh Foley Procedure Location: Med/Surg Sedation Given (Indicate Dose Given): No Sedation given Patient Mental Status: Awake Sterility: Hand Hygiene, Surgical Cap, Surgical Mask, Sterile Gloves, Sterile Drape/Sheet and Chlorhexidine Laterality: Left Insertion Site: Basilic Midline Device: PowerGlide Pro 18G Catheter Length: 10 cm Midline Procedure Procedure: 1% Lidocaine to skin and subcutaneous tissue with 25g needle, Vessel accessed with catheter over needle, Guidewire placed with ease and Catheter placed without resistance Dressing: Tegaderm Applied and Statlock Applied Blood Return: Present Flushes: Easily Ultrasound: Sterile probe cover and gel used Ultrasound Image Saved?: Yes Number of Attempts (See previous attempts in note section): 1 Procedure Tolerated: No Complications and Patient tolerated well Procedure Outcome: Successful Procedure Comment:: Need vascular access for senior living antibiotics. No difficulty in placement Performed By: Scott Gonzales
[2022-05-03 15:16] VITALS: BP 121/86; PULSE 113; RESP 18; TEMP 36.6; O2SAT 100
--- NOTE | 2022-05-03 16:24 | DSE_ITS ---
Date of service: 05/03/22 Time of Service: 16:00 DS: Diagnosis Discharge Diagnosis (1) Osteomyelitis of third toe of left foot: Status: Acute (2) Type 2 diabetes mellitus with diabetic neuropathy: Status: Chronic Discharge Plan Disposition Patient Disposition: Home Condition: Improving Discharge Details Reason For Visit: Osteomyelitis L 3rd Toe, DM Admit Date/Time: 04/29/22 21:17 Admit Provider: Broderick Rubi Attending Provider: Broderick Rubi Primary Care Provider: Unknown,Unknown Hospital Course Hospital Course: This 37-year-old female patient with a past medical history of insulin-dependent Type 2 diabetes mellitus and peripheral neuropathy who has recurrent damage to her left foot most likely from trauma, presented to the [facility] ED with complaint of possible infected toe. She was diagnosed with osteomyelitis by plain film imaging and clinical picture. Earlier that same day, after evaluation in the ED she was given a dose of vancomycin and ceftriaxone but left AGAINST MEDICAL ADVICE being then given clindamycin for out patient oral thera py.? She had to go home to take care of her children.? She returned to the ED for evaluation and initiation of IV antibiotic therapy with podiatry consultation and probable eventual amputation of the third toe.? She denied pain with the neuropathy she has secondary to her diabetes.? She denied any fever.? She was tachycardic and had leukocytosis with elevated WBC as well as mild hyponatremia which was treated with IV fluids.? She is a full code. She has already had an ablation of her first and second toe on the same foot.? She has all of her toes on her right foot. She was admitted to the medical floor for IV administration. She was evaluated by Podiatry, Dr Gabriel. She has a midline and is being discharged to home with home health services to assist with care of the midline and lab draws. She has had a PICC in the past and did give herself the antibiotics successfully. Daptomycin IV 550mg daily 6 weeks, end date 06/14/22 Ceftriaxone IV 2gm daily 6 weeks, end date 06/14/22 W[address] care orders per Dr. Gabriel Home Meds and New Rx's Prescriptions: New (DME) Dexcom G6 Sensor Device See Rx Instructions .Route Qty: 6 0RF Rx Instructions: As directed tramadol 100 mg tablet 100 mg PO Q12H PRNQty: 60 0RF Continued gabapentin 300 mg Tablet 300 - 900 mg PO DIRECTED Rx Instructions: 300 qam 900 hs lorazepam 0.5 mg Tablet 0.5 mg PO BID PRN Jardiance 10 mg Tablet 10 mg PO DAILY omeprazole 20 mg capsule,delayed release(DR/EC) 40 mg PO DAILY Qty: 60 0RF metoclopramide HCl [Reglan] 10 mg tablet 10 mg PO Q6H PRNQty: 10 0RF insulin aspart U-100 [Novolog Flexpen U-100 Insulin] 100 unit/mL (3 mL) insulin pen 9 unit SUBCUT TID Label Comments: INJECT 9 UNITS SUBCUTANEOUSLY THREE TIMES DAILY WITH MEALS insulin glargine [Lantus Solostar U-100 Insulin] 100 unit/mL (3 mL) insulin pen 40 unit SUBCUT HS Label Comments: INJECT 40 UNITS SUBCUTANEOUSLY AT BEDTIME promethazine 25 mg tablet 25 mg PO TID PRN (Reason: nausea and vomiting) Qty: 7 0RF promethazine 25 mg suppository 25 mg LA ONCE Qty: 12 0RF Rx Instructions: may repeat once in 12 hours tramadol 50 mg tablet 50 mg PO PRN PRN Label Comments: TAKE 1 TABLET BY MOUTH EVERY 6 HOURS NEEDED FOR PAIN - DAILY MAX 4 TABLETS (200MG) ondansetron 4 mg tablet,disintegrating 4 mg PO Q6H PRN (Reason: nausea and vomiting) Qty: 10 0RF Discontinued clindamycin HCl 150 mg capsule 450 mg PO TID 7 Days Qty: 63 0RF Discharge Instructions Instructions: Osteomyelitis (DC), How to Care for Your Midline Catheter (DC) Additional Instructions: Return to the infusion clinic tomorrow, May 04 @ 1 PM for antibiotic infusion. Home Health will contact you to change your midline dressing and draw labs every Tuesday. 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)) Activity:: Activity as Tolerated Equipment/Supplies:: No Equipment Needed Diet:: Carb Counting Discharge Orders Discharge Orders: Discharge Order (Routine); Ordered 05/03/22 Ordered By: Lara Mcmullen Discharge Data Discharge Date/Time-TO BE ENTERED AT DEPARTURE: 05/03/22 17:18 DS: Summary Time Spent with Patient providing and/or coordinating discharge services: Greater than 30 minutes Status at Discharge Functional status at discharge: independent ambulation Overall status at discharge: patient is progressing back to baseline Mental Status: mental status grossly normal Speech and Movement: speech and movement normal Mood: congruent mood Affect: normal affect Exam Const General: cooperative, healthy appearing, comfortable and no acute distress Nutritional Appearance: obese Orientation: alert, awake and oriented x3 HENMT Head: normal to inspection, normocephalic and atraumatic Mouth: oral mucosae normal Neck Neck: normal visual inspection Chest Chest: normal inspection of the chest Resp Effort & Inspection: normal respiratory effort Cardio Rate: regular rate Rhythm: regular rhythm GI Inspection: normal to inspection Auscultation: normal bowel sounds Skin Lesions: lesion noted (distal 3rd toe left foot) Neuro General: patient alert, patient awake, patient oriented x3 and no focal motor deficits Extrem General: normal to inspection and full ROM Psych Mental Status: mental status grossly normal Speech and Movement: speech and movement normal Mood: congruent mood Affect: normal affect DS: Data Vitals/I&O Vitals and I&O: Vital Signs Temperature 36.6 C 05/03/22 15:16 Temperature Source Tympanic 05/03/22 15:16 Pulse 113 H 05/03/22 15:16 Pulse Rhythm Regular 05/03/22 07:15 Respiratory Rate 18 05/03/22 15:16 Respiratory Effort Non-Labored 05/03/22 07:15 Respiratory Depth Normal 05/03/22 07:15 Respiratory Pattern Normal 05/03/22 07:15 Blood Pressure 121/86 05/03/22 15:16 Blood Pressure Position Sitting 04/29/22 20:46 Pulse Oximetry 100 05/03/22 15:16 Oxygen Delivery Method Room Air 05/03/22 10:54 Oxygen Flow Rate 0 05/03/22 10:54 Pain Level 0 05/03/22 03:24 Comment 04/30/22 19:05 Intake & Output 05/02/22 05/03/22 05/03/22 23:59 11:59 23:59 Intake Total 1220 / 1640.000 620 / 800 180 / 800 Balance 1220 / 1640.000 620 / 800 180 / 800 Intake: IV 500 / 920.000 250 / 250 Oral 720 / 720 370 / 550 180 / 550 Other: Urine Color Yellow Urine Appearance Clear Clear Voiding Methods Toilet Toilet Data Completed and Pending Labs on day of discharge: Labs from last 24 hours 05/03/22 05/03/22 05/03/22 09:15 06:30 06:30 WBC 12.77 H RBC 4.47 Hgb 14.1 Hct 39.7 MCV 89 MCH 31.5 MCHC 35.5 RDW 12.2 Plt Count 450 H MPV 9.3 Immature Gran % 0.3 Neutrophils % 52.7 Lymphocytes % 34.4 Monocytes % 8.7 Eosinophils % 3.4 Basophils % 0.5 Nucleated RBC % 0.0 Absolute Neutrophils 6.73 H Absolute Lymphocytes 4.39 H Absolute Monocytes 1.11 H Absolute Eosinophils 0.43 Absolute Basophils 0.06 ESR 38 H Sodium Potassium Chloride Carbon Dioxide Anion Gap BUN Creatinine Est GFR (CKD-EPI 2020) Glucose Calcium Total Bilirubin AST ALT Alkaline Phosphatase C-Reactive Protein Total Protein Albumin Vancomycin Trough 17.4 05/03/22 06:30 WBC RBC Hgb Hct MCV MCH MCHC RDW Plt Count MPV Immature Gran % Neutrophils % Lymphocytes % Monocytes % Eosinophils % Basophils % Nucleated RBC % Absolute Neutrophils Absolute Lymphocytes Absolute Monocytes Absolute Eosinophils Absolute Basophils ESR Sodium 137 Potassium 4.2 Chloride 102 Carbon Dioxide 27.1 Anion Gap 7.9 BUN 11 Creatinine 0.7 Est GFR (CKD-EPI 2020) 114.16 Glucose 178 H Calcium 9.3 Total Bilirubin 0.3 AST 30 ALT 34 Alkaline Phosphatase 90 C-Reactive Protein 0.32 H Total Protein 7.3 Albumin 3.3 L Vancomycin Trough Preliminary micro results at discharge 04/29/22 21:23 Blood Culture - Preliminary Blood NO GROWTH 72 HOURS 04/29/22 21:23 Blood Culture - Preliminary Blood NO GROWTH 72 HOURS PFSH All Active Problems (Updated 05/04/22 @ 00:08 by PHAM JEFFERS) Blood glucose elevated (Acute) Osteomyelitis of third toe of left foot (Acute) Osteomyelitis (Acute) Infection of toe (Acute) Amputation of toe of left foot (Acute) Ulcer of other part of foot (Acute) Type 2 diabetes mellitus with diabetic neuropathy (Chronic) Type 2 diabetes mellitus (Chronic) Hypokalemia (Acute) Vomiting (Acute) Gastroparesis (Chronic) Vomiting (Acute) Acute dehydration (Acute) Nausea and vomiting (Acute) IDDM (insulin dependent diabetes mellitus) (Chronic) Tobacco abuse (Acute) Cannabinoid hyperemesis syndrome (Acute) Upper GI bleeding (Acute) UTI (urinary tract infection) (Acute) Medical History Anxiety and depression Diabetes Type 1 Diabetic neuropathy History of cellulitis toe Suicide attempt Surgical History Amputation of left great toe H/O tubal ligation Family History Paternal Grandmother Heart disease Diabetes Maternal Aunt Hypertension Breast cancer maternal great aunt Maternal Grandfather Hypertension Maternal Grandmother Breast cancer Maternal Aunt No problems noted. Maternal Cousin Breast cancer Maternal Cousin Breast cancer Maternal Cousin Breast cancer Social History Smoking/Tobacco Use Status: Current every day Tobacco Type: cigarettes Smoking risk assessment performed?: Yes Alcohol Intake: never Drug use: Socially Substance use type: marijuana Do you feel safe at home: Yes Do you feel safe in your relationship?: Yes Additional Social history: at bedside
--- NOTE | 2022-05-03 16:59 | CMDISCH_ITS ---
- If Service Date Differs Date of service: 05/03/22 Time of Service: 16:59 LACE Index Scoring Tool - Questions: Length of Stay (in days): 4 - 6 Acuity (Admit via E.D.?): Yes Comorbidities: Diabetes w/o Complication E.D. Visits: 10 - Answers: Total Score: 12 Risk of Readmission: High Risk Care Management Discharge Reason for Hospitalization: osteomyelitis left third toe Discharge Plan: Cristy returned home today with no new services. She will return to the infusion room daily for her IV abx until home IV abx can be coordinated. Podiatry and hospitalist team will determine her antibiotic course. Once this is identified, CM will send the order for home infusion to [facility] and [facility] for consideration. CM contacted [facility] to inform them that she will require HH services for her home IV abx. Stella reported that she has had home IV abx in the past, therefore she is comfortable with the plan, and understands that it can take a few days to coordinate. She is willing to come into the infusion room until this is set up. Her will drive her home via private vehicle. She will follow up with podiatry, her PCP and her discharge plan of care. She is happy to be going home. Patient/Family Education Needs: Review discharge instructions, limitations, and additional needs required for her complex discharge plan. Discussion of self care needs including ask me three. Services Needed at Discharge: Infusion Therapy (Infusion room at [facility] )
--- NOTE | 2022-05-03 17:10 | POCOE_ITS ---
Date of service: 05/03/22 Time of Service: 16:15 Assessment and Plan Assessment and plan (1) Cellulitis of third toe, left: Status: Chronic Assessment and plan: The patient was evaluated at bedside. Treatment options were reviewed: IV Abx vs surgical intervention (distal digital amputation). Being that the toe is with without drainage currently nor signs of deep infection, recommendations were made for continuing with plan made by hospitalist service (IV Abx under the management of [facility] ID). If the toe fails to continue to improve, the distal digital amputation can be scheduled as an outpatient basis. Emphasis was placed on diabetic shoes (she reports she was measured) and avoid walking around the house barefoot. She is to RTC this week for follow up evaluation. Appt will be made tomorrow. All questions were answered (2) Osteomyelitis of third toe of left foot: Status: Acute (3) Type 2 diabetes mellitus with diabetic neuropathy: Status: Chronic History of Present Illness History of Present Illness Chief Complaint: L 3rd toe osteomyelitis Narrative: Cristy is a 37 year old female, with Type II DM, whom I've been asked to evaluate for L 3rd toe wound with concerns present (xray) for underlying osteomyelitis. She is on day 4 of admission, and is scheduled to be discharged home today at 1700 (<1 hour). She was evaluated at bedside with Lara Mcmullen NP who relays a plan of treatment with IV Abx upon discharge, monitored weekly by [facility] Infectious Disease. She was admitted for an infection with cellulitis, but feels the toe looks much improved now. There has been no drainage PFSH All Active Problems (Updated 05/02/22 @ 12:39 by Lara Mcmullen NP) Blood glucose elevated (Acute) Cellulitis of third toe, left (Chronic) Osteomyelitis of third toe of left foot (Acute) Osteomyelitis (Acute) Infection of toe (Acute) Amputation of toe of left foot (Acute) Ulcer of other part of foot (Acute) Type 2 diabetes mellitus with diabetic neuropathy (Chronic) Type 2 diabetes mellitus (Chronic) Hypokalemia (Acute) Hypomagnesemia (Acute) Vomiting (Acute) Gastroparesis (Chronic) Vomiting (Acute) Acute dehydration (Acute) Nausea and vomiting (Acute) IDDM (insulin dependent diabetes mellitus) (Chronic) Tobacco abuse (Acute) Cannabinoid hyperemesis syndrome (Acute) DVT prophylaxis (Acute) Discharge planning issues (Acute) Upper GI bleeding (Acute) UTI (urinary tract infection) (Acute) Medical History Anxiety and depression Diabetes Type 1 Diabetic neuropathy History of cellulitis toe Suicide attempt Surgical History Amputation of left great toe H/O tubal ligation Family History Paternal Grandmother Heart disease Diabetes Maternal Aunt Hypertension Breast cancer maternal great aunt Maternal Grandfather Hypertension Maternal Grandmother Breast cancer Maternal Aunt No problems noted. Maternal Cousin Breast cancer Maternal Cousin Breast cancer Maternal Cousin Breast cancer Social History Smoking/Tobacco Use Status: Current every day Tobacco Type: cigarettes Smoking risk assessment performed?: Yes Alcohol Intake: never Drug use: Socially Substance use type: marijuana Do you feel safe at home: Yes Do you feel safe in your relationship?: Yes Additional Social history: at bedside Exam Cardio Other: DP/PT 2/4, CFT < 3 seconds, pedal hair present Skin Other: L 3rd digit with wound at the distal aspect, and eschar in place today but without erythema, purulence, fluctuance, lymphangitis or signs of deep infection. No probe to bone or exposed bone is noted Neuro Other: protective sensation is absent Extrem Other: L hallux amputation noted with distal L 2nd digital amputation. Remaining digits are with digital contractures Results Last Vital Signs Temp 97.9 F 05/03/22 15:16 Pulse 113 H 05/03/22 15:16 Resp 18 05/03/22 15:16 BP 121/86 05/03/22 15:16 Pulse Ox 100 05/03/22 15:16 Labs Result diagrams: 05/03/22 06:30 05/03/22 06:30 Labs: Laboratory Results - last 24 hr 05/03/22 05/03/22 05/03/22 06:30 06:30 06:30 WBC 12.77 H RBC 4.47 Hgb 14.1 Hct 39.7 MCV 89 MCH 31.5 MCHC 35.5 RDW 12.2 Plt Count 450 H MPV 9.3 Immature Gran % 0.3 Neutrophils % 52.7 Lymphocytes % 34.4 Monocytes % 8.7 Eosinophils % 3.4 Basophils % 0.5 Nucleated RBC % 0.0 Absolute Neutrophils 6.73 H Absolute Lymphocytes 4.39 H Absolute Monocytes 1.11 H Absolute Eosinophils 0.43 Absolute Basophils 0.06 ESR 38 H Sodium 137 Potassium 4.2 Chloride 102 Carbon Dioxide 27.1 Anion Gap 7.9 BUN 11 Creatinine 0.7 Est GFR (CKD-EPI 2020) 114.16 Glucose 178 H Calcium 9.3 Total Bilirubin 0.3 AST 30 ALT 34 Alkaline Phosphatase 90 C-Reactive Protein 0.32 H Total Protein 7.3 Albumin 3.3 L Vancomycin Trough 05/03/22 09:15 WBC RBC Hgb Hct MCV MCH MCHC RDW Plt Count MPV Immature Gran % Neutrophils % Lymphocytes % Monocytes % Eosinophils % Basophils % Nucleated RBC % Absolute Neutrophils Absolute Lymphocytes Absolute Monocytes Absolute Eosinophils Absolute Basophils ESR Sodium Potassium Chloride Carbon Dioxide Anion Gap BUN Creatinine Est GFR (CKD-EPI 2020) Glucose Calcium Total Bilirubin AST ALT Alkaline Phosphatase C-Reactive Protein Total Protein Albumin Vancomycin Trough 17.4
--- NOTE | 2022-05-05 07:09 | PDOC.HHF2F_ITS ---
Home Health Referral Home Health Orders Clinical synopsis of why skilled professionals are needed: This 37-year-old female patient with a past medical history of insulin-dependent Type 2 diabetes mellitus and peripheral neuropathy who has recurrent damage to her left foot most likely from trauma, presented to the [facility] ED with complaint of possible infected toe. She was diagnosed with osteomyelitis by plain film imaging and clinical picture. Earlier that same day, after evaluation in the ED she was given a dose of vancomycin and ceftriaxone but left AGAINST MEDICAL ADVICE being then given clindamycin for out patient oral therapy.? She had to go home to take care of her children.? She returned to the ED for evaluation and initiation of IV antibiotic therapy with podiatry consultation and probable eventual amputation of the third toe.? She denied pain with the neuropathy she has secondary to her diabetes.? She denied any fever.? She was tachycardic and had leukocytosis with elevated WBC as well as mild hyponatremia which was treated with IV fluids.? She is a full code. She has already had an ablation of her first and second toe on the same foot.? She has all of her toes on her right foot. She was admitted to the medical floor for IV administration. She was evaluated by Podiatry, Dr Gabriel. She has a midline and is being discharged to home with home health services to assist with care of the midline and lab draws. She has had a PICC in the past and did give herself the antibiotics IV successfully. She will require wound care; orders per Dr Gabriel. Medical diagnosis necessitation home health referral: Osteomyelitis left foot Registered Nurse: Check all that apply Instruct on new or changed medication(s)/assess compliance: Ordered (IV antibiotic administration; labs; care of midline; wound care) Assess for exacerbation of medical condition, instruct patient/caregivers on signs and symptoms to report for early detection: Ordered IV therapy, consisting of: IV antibiotics: Daptomycin and Ceftriaxone Assess wound for signs and symptoms of infection, instruct on wound care and/or provide skilled wound care consisting of: wound care orders per Dr Gabriel. Construction Economist: Assist with community resources: Ordered (multiple visits to the ED in the past few months) Home Bound Status Use of Special Transportation (Describe transportation and medical necessity): No transportation Describe why leaving home would require a considerable and taxing effort: Safety Concerns: describe (potential for injury; ambulation with toe that has no sensation ) Encounter Date and Reason: I certify that a FTF encounter for this patient was performed on May 05, 2022 and that such encounter was related to the primary reason the patient r equires home health services. The encounter was conducted in the following manner: * By me as the certifying physician, SEPARATOR OPERATOR, PA or * By an inpatient physician, SEPARATOR OPERATOR or PA during an inpatient stay who communicated findings to me, Certification And Authentication I certify that I composed the above information based on my clinical judgment relating to this patient's medical condition and, if applicable, clinical findings communicated to me by the NPP or inpatient physician who performed the FTF encounter. Name of Provider that will be monitoring home health services: Lara Mcmullen
== END 2022-05-03 17:18 | disposition home or self-care (01) | DRG 638 ==
LOC: ER 21:20 → MS 22:09
PROVIDERS: Nurse Practitioner Acute Care; Nurse Practitioner Family; Admitting Provider Family Medicine; Emergency Provider Emergency Medicine; Visit Provider Family Medicine
DX: E11.69 Type 2 diabetes mellitus with other specified complication (principal); E87.1 Hypo-osmolality and hyponatremia; M86.172 Other acute osteomyelitis, left ankle and foot; L03.032 Cellulitis of left toe; E83.42 Hypomagnesemia; E11.42 Type 2 diabetes mellitus with diabetic polyneuropathy; Z79.4 Long term (current) use of insulin; Z89.422 Acquired absence of other left toe(s); E11.65 Type 2 diabetes mellitus with hyperglycemia; E87.6 Hypokalemia; F17.210 Nicotine dependence, cigarettes, uncomplicated; F41.8 Other specified anxiety disorders; R60.0 Localized edema
CPT/HCPCS: 36415; 76942; 80048; 80053; 85027; 85652; 87040; 87635; 96365; 99285; J1650; 80202; 83605; 83735; 84703; 85025; 86140; 99223; 99232; 99233; 99239; J3475

== ENCOUNTER 2022-05-05 03:11 | Outpatient (RCR) | payer BC, MEDICAID, SELFPAY ==
[2022-05-04] MEDS: cefTRIAXone 2 GM/50 ML BAG IVPB (13:24)
[2022-05-04] MEDS: Normal Saline Flush 10 ML SYR IVP (13:25)
[2022-05-04] MEDS: DAPTOmycin 500 MG in Normal Saline 50 ML 100 MG IVPB (14:09)
[2022-05-05] MEDS: cefTRIAXone 2 GM/50 ML BAG IVPB (13:00)
[2022-05-05] MEDS: Normal Saline Flush 10 ML SYR IVP (13:04)
[2022-05-05] MEDS: DAPTOmycin 500 MG in Normal Saline 50 ML 100 MG IVPB (13:36)
== END 2022-05-05 23:59 | disposition home or self-care (01) ==
LOC: INF 03:11
PROVIDERS: Visit Provider Nurse Practitioner Family
DX: M86.172 Other acute osteomyelitis, left ankle and foot (principal)
CPT/HCPCS: 96365; J0878

== ENCOUNTER → 2022-05-26 01:19 | Outpatient (CLI) | payer BC, MEDICAID, SELFPAY ==
--- NOTE | 2022-05-26 07:00 | DI.MRI_ITS ---
Exam(s) MR LOWER EXTREMITY LT WO/W EXAM: MR LOWER EXTREMITY LT WO/W CLINICAL HISTORY: LT 3RD DIGIT OSTEOMYELITIS, INFECTION,L08.9,M86.9 TECHNIQUE: Multiplanar multisequence MRI was performed. Both pre and post contrast infused sequence s were performed. Intravenous contrast injected was 18 mL Dotarem. Field of view of this study was of the distal half of the foot. A single sagittal STIR sequence of t he entire foot was also performed. COMPARISON: MR MR LOWER EXTREMITY LT WO/W from 01/13/2022 CR,XR XR TOE LT THIRD from 04/29/2022 FINDINGS: Plain films of 04/29/2022 reviewed. MARROW: There has been amputation of the phalanges of the great toe as well as the mid and distal pha langes of the 2nd toe. The main finding on today's study is signal abnormality in the distal phalanx of the 3rd-middle toe. On the noninfused non fat sat T1 images there is confluent hypointense signal within the distal phal anx.. There is abnormal bright signal seen within the distal phalanx of this toe evident on the STIR sequence. There is no intraosseous enhancement at this level following contrast injection. There is no abnormal intraosseous signal in the middle and proximal phalanx of the 3rd toe nor in the metatarsal. All the metatarsals appear unremarkable. There are no joint effusions, including the D IP joint of the 3rd toe. Mild increased signal is seen around the head of the remaining proximal pha lanx of the 2nd toe but there is no abnormal hypointense T1 signal seen with in the bone at this leve l and postcontrast enhancement at this level is surrounding but not with in the actual bone itself. Phalanges of the 4th and 5th toes appear unremarkable. MUSCLES: There is no evidence of abnormal signal nor mass in the visualized muscles.No evidence of mu scular abscess. OTHER: On the sagittal STIR sequence of the entire foot we note a multi-septated Ganglion cyst behind the ankle measuring 3 cm length by 1 cm. This appears to be coming off of the p osterior aspect of the tibiotalar joint although this is somewhat difficult to delineate accurately w ith a single Uni planar sequence. There is no signal abnormality in the immediately subjacent superi or aspect of the calcaneus nor in the adjacent posterior aspect of the talus and posterior malleolus of the distal tibia. Some bone edema is noted in the navicular. IMPRESSION: 1. Findings described above are suspicious for osteomyelitis of the distal phalanx of the 3rd toe, de spite absence of intraosseous enhancement at this level. Recommend repeat dedicated plain films of t he 3rd toe to compared to the plain films of 04/29/2022. These most probably will reveal further rad iographic progression of bone resorption. 2. Incidental note of 3 x 1 cm para-articular ganglion cyst off the posterior aspect of the ankle constance nt. 3. Other findings as above. DATA REPOSITORY:
[2022-05-26] MEDS: Gadoterate meglumine 20 ML VIAL 18 ML IVP (10:40)
[2022-05-26] MEDS: Normal Saline Flush 10 ML SYR IVP (10:40)
== END ==
PROVIDERS: Visit Provider Podiatrist Foot & Ankle Surgery
DX: L08.89 Other specified local infections of the skin and subcutaneous tissue (principal); M86.672 Other chronic osteomyelitis, left ankle and foot; M79.675 Pain in left toe(s); M25.872 Other specified joint disorders, left ankle and foot
CPT/HCPCS: 73720

== ENCOUNTER 2022-05-28 06:23 | PSDC | payer BC, MEDICAID, SELFPAY ==
--- NOTE | 2022-05-28 06:28 | W.ANESPRE ---
General Info Date of Service Date Performed: 05/28/22 Height: 5 ft 4 in Weight: 91 kg Body Mass Index (BMI): 34.4 Surgical Procedure: Operation Date: 05/28/22 07:40 Proposed Procedure Side Surgeon p Amputation Distal Lt 3rd Digit Left Ester Gabriel DPM Meds Allergies and Home Medications Allergies Allergy/AdvReac Type Severity Reaction Status Date / Time ibuprofen [From Advil] Allergy Severe throat Verified 05/28/22 06:28 closes pomegranate Allergy Severe Anaphylaxis Verified 05/28/22 06:28 citalopram AdvReac Severe Bodily harm Verified 05/28/22 06:28 Home Medication Medication Instructions Recorded gabapentin 300 mg tablet 300 - 900 mg PO DIRECTED 01/24/21 lorazepam 0.5 mg tablet 0.5 mg PO DAILY 01/24/21 empagliflozin 10 mg tablet 10 mg PO DAILY 01/28/21 (Jardiance) tramadol 50 mg tablet 50 mg PO Q6H PRN 09/12/21 insulin aspart U-100 100 unit/mL 12 unit subcut TID 01/14/22 (3 mL) subcutaneous pen (Novolog Flexpen U-100 Insulin aspart) insulin glargine 100 unit/mL (3 40 unit subcut HS 01/14/22 mL) subcutaneous pen (Lantus Solostar U-100 Insulin) promethazine 25 mg tablet 25 mg PO TID PRN nausea and 02/06/22 vomiting #7 tabs blood-glucose sensor (Dexcom G6 #6 ea 05/03/22 Sensor device) tramadol 100 mg tablet 100 mg PO Q12H PRN #60 tabs 05/03/22 ciprofloxacin HCl 500 mg tablet 500 mg PO BID osteomyelitis 14 05/18/22 days #28 tabs clindamycin HCl 300 mg capsule 300 mg PO Q8H ostemyelitis 14 days 05/18/22 #42 caps lidocaine 5 % topical patch 1 patch topical DIRECTED 05/25/22 (Lidoderm) metoclopramide HCl 10 mg tablet 10 mg PO HS PRN 05/25/22 (Reglan) nicotine 7 mg/24 hr daily 1 patch topical DAILY 05/25/22 transdermal patch nystatin 100,000 unit/gram topical 1 applic topical DAILY 05/25/22 cream omeprazole 20 mg capsule,delayed 20 mg PO DAILY 05/25/22 release ondansetron 4 mg disintegrating 4 mg PO Q8H PRN nausea and vomiting 05/25/22 tablet prochlorperazine 25 mg rectal 25 mg VT Q12H PRN 05/25/22 suppository sitagliptin phosphate 50 mg tablet 50 mg PO DAILY 05/25/22 (Januvia) promethazine 25 mg rectal 25 mg VT ONCE PRN 05/27/22 suppository Current Visit Medications: Current Medications Generic Name Dose Route Start Last Admin Trade Name Bonnie PRN Reason Stop Dose Admin Ringer's Solution 1,000 mls @ 80 mls/hr 05/28/22 06:00 IV 05/28/22 23:59 INFUSION ROXANA Cefazolin Sodium/Dextrose 2 gm in 50 mls @ 100 mls/hr 05/28/22 06:00 Ancef Duplex IVPB 05/28/22 23:59 PREOP ROXANA IV Miscellaneous Supplies 1 each 05/28/22 06:00 Iv Access IV 05/28/22 23:59 DIRECTED ROXANA Sodium Chloride 0 ml 05/28/22 06:00 Normal Saline Flush 10 Ml Syr IV 05/28/22 23:59 PRN PRN Sodium Chloride 0 ml 05/28/22 06:00 Normal Saline 10 Ml Vial IJ 05/28/22 23:59 DIRECTED PRN Sterile Water 0 ml 05/28/22 06:00 Water,Injection,Sterile 10 Ml Vial IJ 05/28/22 23:59 DIRECTED PRN PFSH Active Problems Active Problems: Problem Status Onset Code Vomiting R11.10 Gastroparesis K31.84 Vomiting R11.10 Acute dehydration E86.0 Nausea and vomiting R11.2 IDDM (insulin dependent diabetes mellitus) Tobacco abuse Z72.0 Cannabinoid hyperemesis syndrome R11.2, F12.90 Upper GI bleeding K92.2 UTI (urinary tract infection) N39.0 Diabetic foot ulcer associated with secondary diabetes mellitus E08.621, L97.509 Hypokalemia E87.6 Type 2 diabetes mellitus E11.9 Type 2 diabetes mellitus with diabetic neuropathy E11.40 Ulcer of other part of foot L97.509 Amputation of toe of left foot S98.132A Infection of toe L08.9 Osteomyelitis of third toe of left foot M86.9 Osteomyelitis M86.9 Medical History Medical History Anxiety and depression Back pain Cellulitis of third toe, left Chest pain r/t Anxiety Diabetes Type 1, per patient she said she was told she had diabetes type 2. Diabetic neuropathy History of cellulitis toe History of kidney stones History of osteomyelitis IBS (irritable bowel syndrome) Peripheral neuropathy Suicide attempt Surgical History Surgical History Amputation of left great toe H/O tubal ligation History of amputation 2nd toe left foot Tobacco Smoking/Tobacco Use Status: Current every day Tobacco Type: cigarettes Smoking cigarettes per day: 10 Alcohol Alcohol Intake: never Substance Use Substance use: Socially Substance use type: marijuana Vital Signs and Lab Results Vital Signs Most Recent Vital Signs in EMR: Temp Pulse Resp BP Pulse Ox 36.6 C 105 H 18 109/76 99 05/28/22 06:43 05/28/22 06:43 05/28/22 06:43 05/28/22 06:43 05/28/22 06:43 Lab Results Blood Type / Crossmatch: No Data to Display Complete Blood Count: White Blood Count 12.77 10^3/uL (4.4-10.8) H 05/03/22 06:30 Red Blood Count 4.47 10^6/uL (3.93-5.22) 05/03/22 06:30 Hemoglobin 14.1 g/dL (11.2-15.7) 05/03/22 06:30 Hematocrit 39.7 % (36.0-46.0) 05/03/22 06:30 Platelet Count 450 10^3/uL (130-400) H 05/03/22 06:30 Venous Blood Lactate 0.7 mmol/L (0.6-1.4) 04/29/22 21:10 Complete Metabolic Panel: Sodium 137 mmol/L (136-145) 05/03/22 06:30 Potassium 4.2 mmol/L (3.5-5.1) 05/03/22 06:30 Chloride 102 mmol/L (98-107) 05/03/22 06:30 Carbon Dioxide 27.1 mmol/L (21.0-32.0) 05/03/22 06:30 BUN 11 mg/dL (7-18) 05/03/22 06:30 Creatinine 0.7 mg/dL (0.55-1.02) 05/03/22 06:30 Est GFR (CKD-EPI 2020) 114.16 (mL/min/1.73m2) 05/03/22 06:30 Magnesium 1.7 mg/dL (1.8-2.4) L 05/02/22 06:13 Calcium 9.3 mg/dL (8.5-10.1) 05/03/22 06:30 Albumin 3.3 g/dL (3.4-5.0) L 05/03/22 06:30 Glucose 178 mg/dL (74-106) H 05/03/22 06:30 C-Reactive Protein 0.32 mg/dL (0.0-0.3) H 05/03/22 06:30 Liver Function Panel: Alanine Aminotransferase (ALT/SGPT) 34 U/L (14-59) 05/03/22 06:30 Aspartate Amino Transf (AST/SGOT) 30 U/L (15-37) 05/03/22 06:30 Coagulation Panel: No Data to Display Cardiac Panel: No Data to Display Arterial Blood Gas: No Data to Display Venous Blood Gas: No Data to Display Pancreas Panel: No Data to Display Thyroid Panel: No Data to Display Infectious Disease: Coronavirus (COVID-19)(PCR) Negative (Negative) 04/29/22 21:25 Coronavirus 2019 Source Nasal/Nares 04/29/22 21:25 Blood Cultures: No Data to Display Toxicology Panel: No Data to Display Panel: Serum HCG, Qualitative Negative 04/30/22 07:15 Imaging and Studies Imaging and Studies Study information below may be from another EMR and interpreted by another provider. Please see original notes in EMR for more complete details. EKG Summary: 04/27: sinus tachy. Anesthesia Assessment and Plan Anesthesia History Personal History: No History of Anesthesia Complications Family History: No Family History of Anesthesia Complications Exercise Tolerance Exercise Tolerance: Metabolic Equivalents>4 Cardiac & Pulmonary Exam Cardiac Exam: Normal S1/S2 Heart Sounds Pulmonary Exam: Clear Bilateral Breath Sounds Implantable Cardiac Device Does patient have a Pacemaker or an ICD?: No Airway Exam Known Difficult Airway: No Mallampati Class: 2 Mouth Opening: Normal (> 3cm) Thyromental Distance: Greater than 3 cm Neck Range of Motion: Full ROM Neck Circumference: Normal Teeth Condition: Normal Dentition ASA Classification ASA Score: ASA 3 Emergency Case?: No NPO Status NPO Status: NPO Clears >2 hours, Solids >8 hours Status Status: Negative HCG Anesthesia Plan Resuscitation Status: Full Code Anesthesia Technique: MAC Anesthesia Airway Planned: Natural Airway Monitors Used: Standard Monitors Preoperative Comments:: 37 yo female with osteomyolitis of left 3rd toe. Sig PMHx: gastroparesis/vomiting (metocloprmide, omeprazole, promethazine), poorly controlled DM (with neuropathy (gabapentin), gastroparesis), last A1c 10.3, annetta, melvinginnigel, [place], BS this AM 255), smoker (tobacco/cannabis), anxiety/depression. Appropriatly NPO, but would consider her more on the full stomach side, given her history of gastroparesis. Takes reglan at night feel good and not full this AM. Previous Anes: - [facility] lap salping, mac 3 grade 1. - [facility] toe amp, 100 fent, 50 + 50 prop. Plan: Discussed her risk with her gastroparesis. Plan for light MAC.
[2022-05-28 06:43] VITALS: BP 109/76; PULSE 105; RESP 18; TEMP 36.6; O2SAT 99
[2022-05-28] MEDS: Lactated Ringers 1,000 ML 80 ML IV (06:56)
[2022-05-28 07:17] VITALS: BMI 34.4
[2022-05-28] MEDS: ceFAZolin 2 GM/50 ML BAG IVPB (07:30)
[2022-05-28] MEDS: Bupivacaine 0.5% Pres-Free 30 ML VIAL (07:40)
--- NOTE | 2022-05-28 07:50 | AMP_PTH ---
PATIENT: Cristy Luo LOC: [facility] U#:[id number] AGE/SX: 37/F ROOM: RE05/28/[address]: Ester Gabriel : 1985 BED: DIS: 05/28/2022 SPEC #: [id number] RECD: 05/28/22 12:36 STATUS: SENTHIL REQ #: [id number] CONOR: 05/28/22 07:[address]: Ester Gabriel DEPT: Surgical Specimen RECD BY: Staci Wilburn ENTERED: 05/28/22 12:37 SP TYPE: Amputation OTHR DR: Unknown,Unknown Tissues: 1 - AMPUTATION FINGERS/TOES(NOT TRAUMA) Procedures: GROSS AND MICRO LEVEL 4 DECALCIFICATION Comments: [id number]
[2022-05-28 08:09] VITALS: BP 120/82; PULSE 101; RESP 18; TEMP 36; O2SAT 99
[2022-05-28 08:46] VITALS: BP 120/89; PULSE 101; RESP 18; TEMP 36.6; O2SAT 97
--- NOTE | 2022-05-28 08:50 | W.ANESPOSTOP ---
Postoperative Evaluation Date, Time and Location Date Performed: 05/28/22 Time Performed: 08:50 Patient Location: Day Surgery Unit Vital Signs Most Recent Imported Vital Signs: Most Recent Vital Signs Temp Pulse Resp BP Pulse Ox 36.0 C L 101 H 18 120/82 99 05/28/22 08:09 05/28/22 08:09 05/28/22 08:09 05/28/22 08:09 05/28/22 08:09 Pain Score Most Recent Pain Score: Most Recent Pain Score Pain Level 3 05/28/22 08:09 Assessment Mental Status: Awake (Alert & Oriented to Patient Baseline) Airway and Respiratory Function: Patent airway with normal (patient baseline) respiratory exam Cardiovascular Function: Hemodynamically Stable Hydration Status: Adequately Hydrated Nausea & Vomiting: No Nausea or Vomiting Pain: Pt. Denies Any Pain Peripheral Nerve Block: Patient did not receive a nerve block
--- NOTE | 2022-05-28 15:07 | W.PM.OP ---
Date of service: 05/28/22 Time of Service: 07:30 Operative Note Operative Note DATE OF PROCEDURE: 05/28/22 PRE-OP DIAGNOSIS: osteomyelitis POST-OP DIAGNOSIS: same PROCEDURE: L 3rd digital amputation with disarticulation at the DIPJ SURGEON: Ester Gabriel ANESTHESIA TYPE: Local By Surgeon and MAC Refer to Anesthesia Record ESTIMATED BLOOD LOSS: 5 PATHOLOGY: other COMPLICATIONS: None Patient was transported to: same day Patient's condition: stable Indications: non healing wound, osteomyelitis Procedure Description: The patient was brought in the operating room and placed on the operating table in the supine position. The foot was scrubbed, prepped, and draped. Attention was directed to the L 3rd digit where a modified fishmouth incision was used to disarticulate the distal hallux at the PIPJ. The toe was sent for pathological evaluation. The wound was dressed with sterile normal saline (3 L). Hemostasis was achieved with surgical technique. The incision site was reapproximated with 3-0 and 4-0 nyon, following the use of 3-0 vicryl for deep tissue. The incision site was dressed with xeroform, DSD, well padded RENAN. Instructions were give (as previously discussed with the patient) to keep dressing dry and intact, limit activity, take oral Abx until completion, and follow up with myself in 6 days, sooner as needed
== END 2022-05-28 08:50 | disposition home or self-care (01) ==
PROVIDERS: Visit Provider Podiatrist Foot & Ankle Surgery
PROC: (CPT 28825; principal; 2022-05-28 07:30)
DX: M86.8X8 Other osteomyelitis, other site (principal); E11.40 Type 2 diabetes mellitus with diabetic neuropathy, unspecified; E11.43 Type 2 diabetes mellitus with diabetic autonomic (poly)neuropathy; K31.84 Gastroparesis; Z79.4 Long term (current) use of insulin; M87.378 Other secondary osteonecrosis, left toe(s)
CPT/HCPCS: 28825; 88300; 88305; 88311; J0690; J2250; J2405; J2704

== ENCOUNTER 2022-08-24 16:39 | Outpatient (REF) | payer BC, MEDICAID, SELFPAY | END 2022-08-24 16:40 | disposition home or self-care (01) | LOC: LBN 16:39 | PROVIDERS: Visit Provider Podiatrist Foot & Ankle Surgery | DX: L02.612 Cutaneous abscess of left foot (principal) | CPT/HCPCS: 87077; 87070; 87075; 87186; 87205 ==

== ENCOUNTER 2022-08-24 18:20 | Outpatient (CLI) | payer BC, MEDICAID, SELFPAY ==
[2022-08-24 16:04] LABS: Abs Immature Grans 0.12 10^3/uL (0.0-0.06); Absolute Basophil Count 0.09 10^3/uL (0.0-0.2); Absolute Lymphocyte Count 4.03 10^3/uL (1.2-3.4); Absolute Monocyte Count 2.12 10^3/uL (0.1-0.8); Basophils % 0.4; Eosinophils % 0.8; HCT 41.7 % (36.0-46.0); HGB 14.7 g/dL (11.2-15.7); Immature Grans % 0.5; Lymphocytes % 17.1; MCH 31.4 pg (27.0-33.0); MCHC 35.3 % (32.0-36.0); MCV 89 fL (80-95); MPV 9.3 fL (8.0-11.0); Neutrophils % 72.2; Platelet Count 376 10^3/uL (130-400); RBC 4.68 10^6/uL (3.93-5.22); RDW 12.4 % (11.7-14.6); RDW-SD 40.7 fL; WBC 23.56 10^3/uL (4.4-10.8)
[2022-08-24 16:10] LABS: ESR 50 mm/hr (0-20)
[2022-08-24 16:12] LABS: Absolute Eosinophil Count 0.19 10^3/uL (0.0-0.7); Absolute Neutrophil Count 17.01 10^3/uL (1.2-6.7)
[2022-08-24 16:24] LABS: Anion Gap 8.4 mmol/L (3-11); BUN 7 mg/dL (7-18); C-Reactive Protein 5.53 mg/dL (0.0-0.3); CO2 27.6 mmol/L (21.0-32.0); CREATININE 0.7 mg/dL (0.55-1.02); Calcium 9.2 mg/dL (8.5-10.1); Chloride 100 mmol/L (98-107); Estimated GFR 114.16 (mL/min/1.73m2); Glucose 266 mg/dL (74-106); Sodium 136 mmol/L (136-145)
[2022-08-24 16:32] LABS: Diff Comment Diff Reviewed; RBC Morphology Normal
== END 2022-08-24 18:21 | disposition home or self-care (01) ==
LOC: LBO 18:20
PROVIDERS: Visit Provider Podiatrist Foot & Ankle Surgery
DX: L02.416 Cutaneous abscess of left lower limb (principal); L03.116 Cellulitis of left lower limb; E10.621 Type 1 diabetes mellitus with foot ulcer; R70.0 Elevated erythrocyte sedimentation rate
CPT/HCPCS: 36415; 80048; 85652; 85025; 86140

== ENCOUNTER 2022-08-26 08:22 | Inpatient (IN) | payer BC, MEDICAID, SELFPAY ==
[2022-08-26 08:28] VITALS: BP 119/79; PULSE 116; RESP 18; TEMP 36.5; O2SAT 99
--- NOTE | 2022-08-26 08:30 | RT.EKG_ITS ---
APPROVED REPORT Exam: Resting ECG Reason for Exam: weakness Patient Location: E HR:109 bpm ECG Measurements Heart Rate 109 AXIS KS 158 P 61 QRSd 80 QRS 9 QT 340 T -3 QTc 459 Conclusion Sinus tachycardia...rate> 99 Probable left atrial enlargement...P >50mS, <-0.10mV V1 Borderline T abnormalities, diffuse leads...T flat/neg sinus tachycardia, normal axis, nomral intervals, nonischemic
[2022-08-26 08:34] VITALS: PULSE 93
--- NOTE | 2022-08-26 08:37 | W.ED.GENAD ---
Discharge Plan Disposition Patient Disposition: Admit to [facility] Condition: Serious Discharge Details Clinical Impression: Vomiting, IDDM (insulin dependent diabetes mellitus), Infection of toe, Acute dehydration Admit Date/Time: 08/26/22 11:29 Admit Provider: Mukesh Foley Attending Provider: Mukesh Foley Primary Care Provider: Unknown,Unknown ED Provider: Staci Martin Discharge Data Discharge Date/Time-TO BE ENTERED AT DEPARTURE: 08/26/22 12:06 Medical Decision Making 37-year-old female presents with cellulitic left toe with poorly controlled diabetes, will need diagnostic blood work, diagnostic x-ray imaging, IV fluids, IV antibiotics, and likely admission to the hospital, Labs show evidence of diabetes, hyperglycemia with blood sugar of 340, bicarb elevated, pH within normal limits, ketones in urine, likely dehydration, do not suspect diabetic ketoacidosis clinically, will treat blood sugar 300 with subcutaneous insulin, 10 units We will give 2 L of IV LR resuscitation, IV Vanco, IV Zosyn for suspected sepsis in the presence of infected toe Case was discussed with Dr. Anna, [employer] [facility], where patient is being admitted to the hospital Do not see need for emergent amputation of toe Will need IV antibiotics, Dr. Rogel to admit patient to his service HPI General Date/Time Provider Initiated Documentation: 08/26/22 08:33. HPI Narrative: This insulin-dependent 37-year-old diabetic presents with nausea, vomiting, weakness and infection in left foot. Patient concerned regarding cellulitis and history of prior toe amputations in the past. States her symptoms started 48 hours ago. Denies illicit drug use. Denies blood in vomitus or diarrhea. Denies any chest pain or shortness of breath. States she feels quite weak. Denies chance of . Is not currently on antibiotics per patient. Related Data Home Medications Medication Instructions Recorded Confirmed gabapentin 300 mg tablet 300 - 900 mg PO DIRECTED 01/24/21 08/26/22 lorazepam 0.5 mg tablet 0.5 mg PO DAILY 01/24/21 08/26/22 insulin aspart U-100 100 unit/mL 12 unit subcut TID 01/14/22 08/26/22 (3 mL) subcutaneous pen (Novolog FlexPen U-100 Insulin aspart) insulin glargine 100 unit/mL (3 40 unit subcut HS 01/14/22 08/26/22 mL) subcutaneous pen (Lantus Solostar U-100 Insulin) promethazine 25 mg tablet 25 mg PO TID PRN nausea and 02/06/22 08/25/22 vomiting #7 tabs blood-glucose sensor (Dexcom G6 #6 ea 05/03/22 08/26/22 Sensor device) lidocaine 5 % topical patch 1 patch topical DIRECTED 05/25/22 08/26/22 (Lidoderm) metoclopramide HCl 10 mg tablet 10 mg PO HS PRN 05/25/22 08/26/22 (Reglan) nicotine 7 mg/24 hr daily 1 patch topical DAILY 05/25/22 08/25/22 transdermal patch nystatin 100,000 unit/gram topical 1 applic topical DAILY 05/25/22 08/25/22 cream omeprazole 20 mg capsule,delayed 20 mg PO DAILY 05/25/22 08/25/22 release ondansetron 4 mg disintegrating 4 mg PO Q8H PRN nausea and vomiting 05/25/22 08/26/22 tablet prochlorperazine 25 mg rectal 25 mg VT Q12H PRN 05/25/22 08/26/22 suppository sitagliptin phosphate 50 mg tablet 50 mg PO DAILY 05/25/22 08/26/22 (Januvia) promethazine 25 mg rectal 25 mg VT ONCE PRN 05/27/22 08/26/22 suppository amoxicillin 875 mg-potassium 1 tab PO BID #20 tabs 08/28/22 clavulanate 125 mg tablet empagliflozin 10 mg tablet 10 mg PO DAILY #30 tabs 08/28/22 (Jardiance) tramadol 50 mg tablet 50 mg PO Q6H PRN PRN #30 tabs 08/28/22 Previous Rx's Medication Instructions Recorded promethazine 25 mg tablet 25 mg PO TID PRN nausea and 02/06/22 vomiting #7 tabs blood-glucose sensor (Dexcom G6 #6 ea 05/03/22 Sensor device) amoxicillin 875 mg-potassium 1 tab PO BID #20 tabs 08/28/22 clavulanate 125 mg tablet empagliflozin 10 mg tablet 10 mg PO DAILY #30 tabs 08/28/22 (Jardiance) tramadol 50 mg tablet 50 mg PO Q6H PRN PRN #30 tabs 08/28/22 Allergies Allergy/AdvReac Type Severity Reaction Status Date / Time ibuprofen [From Advil] Allergy Severe throat Verified 08/26/22 08:31 closes pomegranate Allergy Severe Anaphylaxis Verified 08/26/22 08:31 citalopram AdvReac Severe Bodily harm Verified 08/26/22 08:31 General Stated Complaint: Orthopedic ARNOLD: 3 PFSH All Active Problems (Updated 08/31/22 @ 16:04 by EUNICE Akers) Cellulitis of foot (Acute) Diabetic toe ulcer (Acute) Abscess (Acute) Vomiting (Acute) Gastroparesis (Chronic) Vomiting (Acute) Acute dehydration (Acute) Nausea and vomiting (Acute) IDDM (insulin dependent diabetes mellitus) (Chronic) Tobacco abuse (Acute) Cannabinoid hyperemesis syndrome (Acute) Upper GI bleeding (Acute) UTI (urinary tract infection) (Acute) Hypokalemia (Acute) Type 2 diabetes mellitus (Chronic) Type 2 diabetes mellitus with diabetic neuropathy (Chronic) Ulcer of other part of foot (Acute) Amputation of toe of left foot (Acute) Infection of toe (Acute) Osteomyelitis (Acute) Medical History Anxiety and depression Back pain Cellulitis of third toe, left Chest pain r/t Anxiety Diabetes Type 1, per patient she said she was told she had diabetes type 2. Diabetic neuropathy History of cellulitis toe History of kidney stones History of osteomyelitis IBS (irritable bowel syndrome) Peripheral neuropathy Suicide attempt Surgical History Amputation of left great toe H/O tubal ligation History of amputation 2nd toe left foot Family History Paternal Grandmother Heart disease Diabetes Maternal Aunt Hypertension Breast cancer maternal great aunt Maternal Grandfather Hypertension Maternal Grandmother Breast cancer Maternal Aunt No problems noted. Maternal Cousin Breast cancer Maternal Cousin Breast cancer Maternal Cousin Breast cancer Social History Smoking/Tobacco Use Status: Current every day Tobacco Type: cigarettes Smoking risk assessment performed?: Yes Alcohol Intake: former Drug use: Socially Substance use type: former substance user Do you feel safe at home: Yes Do you feel safe in your relationship?: Yes Exam Narrative Exam Narrative: Patient appears chronically unwell, she is alert and oriented, pupils equal round reactive to light and accommodation, no meningismus Rate rhythm regular cardiovascularly, lungs clear to auscultation bilaterally, no abdominal tenderness, left foot with redness at second digit, eschar distally, no open wound, lymphangitis approximately 3 inch region, no crepitus, distal pulses intact, fully alert and oriented, brisk capillary refill distally Course Vital Signs Vital signs: Vital Signs Temperature 36.5 C 08/26/22 08:28 Pulse 116 H 08/26/22 08:28 Respiratory Rate 18 08/26/22 08:28 Blood Pressure 119/79 08/26/22 08:28 Pulse Oximetry 99 08/26/22 08:28 Temperature 36.5 C 08/26/22 08:28 Pulse 93 H 08/26/22 08:34 Respiratory Rate 18 08/26/22 08:28 Respiratory Effort Normal, Non-Labored 08/26/22 08:30 Blood Pressure 119/79 08/26/22 08:28 Pulse Oximetry 99 08/26/22 08:28 Oxygen Delivery Method Room Air 08/26/22 08:28 Oxygen Flow Rate 0 08/26/22 08:28 Critical Care Time Critical Care Time Attestation: Approximately 45 minutes of critical care time with insulin administration, IV antibiotics, IV fluid resuscitation, IV antibiotics, and ultimately admission to the hospital with hospitalist consultation in the presence of an insulin-dependent tabetic with a diabetic toe and hyperglycemia
--- NOTE | 2022-08-26 08:44 | DI.RAD_ITS ---
Exam(s) XR FOOT LT COMPLETE EXAM: XR FOOT LT COMPLETE CLINICAL HISTORY: 2nd toe infection, dm. TECHNIQUE: 2D digital imaging was performed of the left foot. Three images were obtained. AP, obli que and lateral views were obtained. COMPARISON: CR,XR XR FOOT LT COMPLETE from 11/16/2021 CR,XR XR TOE LT THIRD from 04/29/2022 FINDINGS: BONES: No acute fracture is present. No bony destructive lesion is seen. There is a large plantar carin caneal spur. There again seen postsurgical changes of amputation of the distal phalanx of the 3rd to e, the 2nd toe at the level of the PIP joint and the great toe at the level of the MTP joint. No rad iographic findings to suggest osteomyelitis. JOINTS: No dislocation present. SOFT TISSUE: Dystrophic calcifications are seen in the soft tissues. These appear old. IMPRESSION: 1. Postsurgical changes of the left foot. 2. No radiographic evidence to suggest osteomyelitis. DATA REPOSITORY: RADIATION DOSE DELIVERED:
--- NOTE | 2022-08-26 08:45 | DI.RAD_ITS ---
Exam(s) XR CHEST 2V PA LATERAL EXAM: XR CHEST 2V PA LATERAL CLINICAL HISTORY: weakness TECHNIQUE: 2D digital imaging was performed of the chest. Two images were obtained. PA and lateral views were obtained. COMPARISON: No exams were available for comparison FINDINGS: MEDIASTINUM: Normal. HEART: Normal. PULMONARY VASCULATURE: Normal. LUNGS: Clear. PLEURAL SPACE: No pleural effusion or pneumothorax. BONE:Within normal limits for the patient's age. OTHER FINDINGS:Normal. IMPRESSION: No acute pulmonary findings. DATA REPOSITORY: RADIATION DOSE DELIVERED:
[2022-08-26 08:49] LABS: BE (Venous) -1 mmol/L (-2-3); HCO3 (Venous) 25 mmol/L (23-28); O2 Sat (Venous) 68 %; TCO2 (Venous) 22 mmol/L (24-29); pCO2 (Venous) 44 mmHg (41-51); pH (Venous) 7.36 (7.31-7.41); pO2 (Venous) 35 mmHg
[2022-08-26 08:50] LABS: Abs Immature Grans 0.06 10^3/uL (0.0-0.06); Absolute Basophil Count 0.03 10^3/uL (0.0-0.2); Absolute Lymphocyte Count 0.99 10^3/uL (1.2-3.4); Absolute Monocyte Count 0.39 10^3/uL (0.1-0.8); Basophils % 0.2; Eosinophils % 0.1; HCT 43.6 % (36.0-46.0); HGB 15.2 g/dL (11.2-15.7); Immature Grans % 0.4; Lymphocytes % 6.3; MCHC 34.9 % (32.0-36.0); MCV 89 fL (80-95); MPV 9.6 fL (8.0-11.0); Monocytes % 2.5; Neutrophils % 90.5; Platelet Count 359 10^3/uL (130-400); RBC 4.91 10^6/uL (3.93-5.22); RDW 12.3 % (11.7-14.6); RDW-SD 40.3 fL; WBC 15.71 10^3/uL (4.4-10.8)
[2022-08-26 08:51] LABS: Absolute Eosinophil Count 0.02 10^3/uL (0.0-0.7); Absolute Neutrophil Count 14.22 10^3/uL (1.2-6.7)
[2022-08-26 08:52] LABS: Lactate 1.9 mmol/L (0.6-1.4)
[2022-08-26 09:06] LABS: ETHANOL BLOOD < 3.0 mg/dL (<10)
[2022-08-26] MEDS: PIPERACILLIN/TAZO 3.375 GM in Normal Saline 50 ML IVPB (09:07)
[2022-08-26] MEDS: Metoclopramide 10 MG/2 ML VIAL IVP (09:07)
[2022-08-26] MEDS: Lactated Ringers 1,000 ML 1000 ML IV ×2 (09:07→10:35)
[2022-08-26 09:09] LABS: ALT 31 U/L (14-59); AST 25 U/L (15-37); Albumin 3.5 g/dL (3.4-5.0); Alkaline Phosphatase 127 U/L (46-116); Anion Gap 14.5 mmol/L (3-11); BUN 11 mg/dL (7-18); Bilirubin, Total 0.4 mg/dL (0.2-1.0); CO2 25.5 mmol/L (21.0-32.0); CREATININE 0.9 mg/dL (0.55-1.02); Calcium 9.5 mg/dL (8.5-10.1); Chloride 95 mmol/L (98-107); Estimated GFR 84.44 (mL/min/1.73m2); Glucose 384 mg/dL (74-106); Potassium 3.7 mmol/L (3.5-5.1); Sodium 135 mmol/L (136-145); Total Protein 8.5 g/dL (6.4-8.2)
[2022-08-26 09:27] VITALS: BP 150/85; PULSE 115; RESP 18; O2SAT 99
[2022-08-26 09:29] LABS: COVID-19 PCR Negative (Negative); Influenza A PCR Negative (Negative); Influenza B PCR Negative (Negative); RSV PCR Negative (Negative)
[2022-08-26 09:30] LABS: Source Nasopharynx
[2022-08-26 10:12] LABS: Bilirubin Negative (Negative); Blood Trace-lysed (Negative); Clarity Clear (Clear); Glucose 500 mg/dL (Negative); Ketones >=160 mg/dL (Negative); Leukocyte Esterase Negative (Negative); Nitrite Negative (Negative); Specific Gravity >= 1.030 (1.005-1.025); Urobilinogen 0.2 mg/dL (Up to 0.2); pH 5.5 (5-8)
[2022-08-26 10:29] LABS: *AMPHETAMINES SCREEN URINE Negative (Negative); *BARBITURATES SCREEN URINE Negative (Negative); *BENZODIAZEPINES SCREEN URINE Negative (Negative); Cannabinoids THC Positive (Negative); Cocaine Screen,Urine Negative (Negative); METHADONE URINE SCREEN Negative (Negative); OPIATES URINE SCREEN Negative (Negative); RBC 0-2 HPF (0-2); WBC Negative HPF (0-5)
[2022-08-26 10:30] LABS: Bacteria Rare HPF (Negative); C & S Indicated? No; Casts Negative LPF (Negative); Crystals Negative HPF (Negative); Epithelial Cells Few HPF (Negative); Mucus Negative (Negative)
[2022-08-26 10:32] LABS: Tricyclic Antidepressants Negative (Negative)
[2022-08-26] MEDS: FAMOTIDINE 20 MG in Normal Saline 100 ML 400 MG IVPB (11:04)
[2022-08-26] MEDS: Prochlorperazine 10 MG/2 ML VIAL IVP (11:08)
[2022-08-26 11:20] LABS: C-Reactive Protein 9.49 mg/dL (0.0-0.3)
[2022-08-26] MEDS: Insulin REGULAR-Human 100 UNITS/ML UNIT 10 UNITS SC (11:22)
[2022-08-26 11:59] VITALS: BP 115/65; PULSE 116; RESP 18; O2SAT 98
[2022-08-26 12:38] VITALS: BP 101/75; PULSE 118; RESP 16; TEMP 36.4; O2SAT 99
--- NOTE | 2022-08-26 12:52 | HPE_ITS ---
Date of service: 08/26/22 Time of Service: 12:52 Assessment and Plan Assessment and plan (1) Diabetic toe ulcer: Status: Acute Assessment and plan: Broad-spectrum antibiotics including meropenem and vancomycin. Check the sensitivities on her wound cultures from 08/24/2022. Check results of blood cul tures. We will get an MRI scan looking for osteomyelitis of her foot and second toe. We will consult with Dr. Gabriel, podiatry to follow-up with incision and debridement of the left second toe. If the wound cultures do not grow MRSA in her nasal swab for MRSA nares are negative then we could probably discontinue the vancomycin and just treat her with ceftriaxone which would cover both strep and non-MRSA Staph aureus. Patient states that tramadol has been adequate for controlling her pain. (2) Cellulitis of foot: Status: Acute Assessment and plan: As above (3) IDDM (insulin dependent diabetes mellitus): Status: Chronic Assessment and plan: We will treat with basal bolus since. Her on her Jardiance and as well as her Januvia. I talked with her about the need to go on a CGM monitoring as well as insulin pump. Apparently she has been in discussion with her project drilling engineer at [facility] regarding this. She did have a CGM monitor but the new equipment was no longer compatible with her older android phone. History of Present Illness History of Present Illness Chief Complaint: Left foot second toe swelling and pain and drainage Narrative: This 37-year-old female with type 1 diabetes mellitus for last 10 years has been followed by her hand endband cutter Dr. Gabriel for treatment of a diabetic toe ulcer. Patient has previous history of a distal amputation of her left third toe distal phalanx amputation after failure of the toe to improve with antibiotics. This was performed on 05/28/2022. Postoperatively she has been followed by Dr. Gabriel in the office on 06/08/2022 and 06/10/2022. She was then seen in the office on 08/24/2022 and found to have an ulceration with purulence on the left second digit. This was incised and drained and she was put on Augmentin. In spite of that she has had worsening swelling of her foot and left second toe.'s been associated with some fever and chills. Evaluation in the emergency department showed a white count of 15,700 which actually has declined from a high of 23,500 when she was started on antibiotics on 08/24/2022. Patient has had associated nausea and vomiting and generalized weakness. She was directed to the emergency department where she was evaluated and advised to be admitted to the hospital. Hospital service was called to admit the patient for IV antibiotics. Preliminary wound culture from 08/24/2022 demonstrated Staph aureus and group G Streptococcus. Blood cultures were obtained the emergency department and she was given a dose of Zosyn. Patient is admitted to the medical/surgical floor in stable condition. Patient has since been started on meropenem and vancomycin. She did get the first dose of vancomycin in the emergency department. Review of Systems All systems reviewed & are unremarkable except as noted in HPI and below PFSH All Active Problems (Updated 08/26/22 @ 13:15 by Mukesh Foley MD) Cellulitis of foot (Acute) Diabetic toe ulcer (Acute) Abscess (Acute) Vomiting (Acute) Gastroparesis (Chronic) Vomiting (Acute) Acute dehydration (Acute) Nausea and vomiting (Acute) IDDM (insulin dependent diabetes mellitus) (Chronic) Tobacco abuse (Acute) Cannabinoid hyperemesis syndrome (Acute) Upper GI bleeding (Acute) UTI (urinary tract infection) (Acute) Hypokalemia (Acute) Type 2 diabetes mellitus (Chronic) Type 2 diabetes mellitus with diabetic neuropathy (Chronic) Ulcer of other part of foot (Acute) Amputation of toe of left foot (Acute) Infection of toe (Acute) Osteomyelitis (Acute) Medical History Anxiety and depression Back pain Cellulitis of third toe, left Chest pain r/t Anxiety Diabetes Type 1, per patient she said she was told she had diabetes type 2. Diabetic neuropathy History of cellulitis toe History of kidney stones History of osteomyelitis IBS (irritable bowel syndrome) Peripheral neuropathy Suicide attempt Surgical History Amputation of left great toe H/O tubal ligation History of amputation 2nd toe left foot Family History Paternal Grandmother Heart disease Diabetes Maternal Aunt Hypertension Breast cancer maternal great aunt Maternal Grandfather Hypertension Maternal Grandmother Breast cancer Maternal Aunt No problems noted. Maternal Cousin Breast cancer Maternal Cousin Breast cancer Maternal Cousin Breast cancer Social History Smoking/Tobacco Use Status: Current every day Tobacco Type: cigarettes Smoking risk assessment performed?: Yes Alcohol Intake: former Drug use: Socially Substance use type: former substance user Do you feel safe at home: Yes Do you feel safe in your relationship?: Yes Meds Allergies and Home Medications Allergies Allergy/AdvReac Type Severity Reaction Status Date / Time ibuprofen [From Advil] Allergy Severe throat Verified 08/26/22 08:31 closes pomegranate Allergy Severe Anaphylaxis Verified 08/26/22 08:31 citalopram AdvReac Severe Bodily harm Verified 08/26/22 08:31 Home Medications Medication Instructions Recorded Confirmed Type gabapentin 300 mg tablet 300 - 900 mg PO DIRECTED 01/24/21 08/26/22 History lorazepam 0.5 mg tablet 0.5 mg PO DAILY 01/24/21 08/26/22 History empagliflozin 10 mg tablet 10 mg PO DAILY 01/28/21 08/26/22 History (Jardiance) tramadol 50 mg tablet 50 mg PO Q6H PRN 09/12/21 08/26/22 History insulin aspart U-100 100 unit/mL 12 unit subcut TID 01/14/22 08/26/22 History (3 mL) subcutaneous pen (Novolog FlexPen U-100 Insulin aspart) insulin glargine 100 unit/mL (3 40 unit subcut HS 01/14/22 08/26/22 History mL) subcutaneous pen (Lantus Solostar U-100 Insulin) promethazine 25 mg tablet 25 mg PO TID PRN nausea and 02/06/22 08/25/22 Rx vomiting #7 tabs blood-glucose sensor (Dexcom G6 #6 ea 05/03/22 08/26/22 Rx Sensor device) lidocaine 5 % topical patch 1 patch topical DIRECTED 05/25/22 08/26/22 History (Lidoderm) metoclopramide HCl 10 mg tablet 10 mg PO HS PRN 05/25/22 08/26/22 History (Reglan) nicotine 7 mg/24 hr daily 1 patch topical DAILY 05/25/22 08/25/22 History transdermal patch nystatin 100,000 unit/gram topical 1 applic topical DAILY 05/25/22 08/25/22 History cream omeprazole 20 mg capsule,delayed 20 mg PO DAILY 05/25/22 08/25/22 History release ondansetron 4 mg disintegrating 4 mg PO Q8H PRN nausea and vomiting 05/25/22 08/26/22 History tablet prochlorperazine 25 mg rectal 25 mg LA Q12H PRN 05/25/22 08/26/22 History suppository sitagliptin phosphate 50 mg tablet 50 mg PO DAILY 05/25/22 08/26/22 History (Januvia) promethazine 25 mg rectal 25 mg LA ONCE PRN 05/27/22 08/26/22 History suppository amoxicillin 875 mg-potassium 1 tab PO BID L foot infection #20 08/24/22 08/24/22 Rx clavulanate 125 mg tablet tabs Exam Narrative Exam Narrative: Young tattooed female who is alert and oriented person place time circumstance. She does not appear to be in any acute distress. HEENT is unremarkable Neck is supple nontender no JVD normal carotid pulses no bruits Lungs are clear to auscultation Heart is regular rate and rhythm without murmur rub or gallop. Abdomen soft nontender no organomegaly no bruits no masses. Extremities right leg and foot is without edema she has normal pedal pulses left leg shows no calf swelling or tenderness she has some slight edema of the dorsum of her left foot and some slight redness of the dorsal left foot extends down to her left second toe. Tip to the left second toe has a black eschar and is draining some purulent material. She is absent her left great toe which she had previously been amputated and the distal tip of her third toe is also missing. She has palpable pedal pulses. Results Labs 08/26/22 08:42 08/26/22 08:42 Labs: Laboratory Results - last 24 hr 08/26/22 08/26/22 08/26/22 08:42 08:42 08:42 WBC 15.71 H RBC 4.91 Hgb 15.2 Hct 43.6 MCV 89 MCH 31.0 MCHC 34.9 RDW 12.3 Plt Count 359 MPV 9.6 Immature Gran % 0.4 Neutrophils % 90.5 Lymphocytes % 6.3 Monocytes % 2.5 Eosinophils % 0.1 Basophils % 0.2 Nucleated RBC % 0.0 Absolute Neutrophils 14.22 H Absolute Lymphocytes 0.99 L Absolute Monocytes 0.39 Absolute Eosinophils 0.02 Absolute Basophils 0.03 VBG pH VBG pCO2 VBG pO2 VBG HCO3 VBG Total CO2 VBG O2 Saturation VBG Base Excess VBG Lactate 1.9 H Sodium 135 L Potassium 3.7 Chloride 95 L Carbon Dioxide 25.5 Anion Gap 14.5 H BUN 11 Creatinine 0.9 Est GFR (CKD-EPI 2020) 84.44 Glucose 384 H Calcium 9.5 Total Bilirubin 0.4 AST 25 ALT 31 Alkaline Phosphatase 127 H C-Reactive Protein Total Protein 8.5 H Albumin 3.5 Urine Color Urine Clarity Urine pH Ur Specific [place] Urine Protein Urine Ketones Urine Blood Urine Nitrite Urine Bilirubin Urine Urobilinogen Ur Leukocyte Esterase Urine RBC Urine WBC Ur Epithelial Cells Urine Crystals Urine Bacteria Urine Casts Urine Mucus Ur Culture Indicated? Urine Glucose Urine Opiates Screen Urine Methadone Screen Ur Barbiturates Screen Ur Tricyclics Screen Ur Amphetamines Screen U Benzodiazepines Scrn Urine Cocaine Screen Ur THC Screen Ethyl Alcohol COVID-19 Source SARS-CoV-2 (PCR) Influenza Type A (PCR) Influenza Type B (PCR) RSV (PCR) 08/26/22 08/26/22 08/26/22 08:42 08:42 08:42 WBC RBC Hgb Hct MCV MCH MCHC RDW Plt Count MPV Immature Gran % Neutrophils % Lymphocytes % Monocytes % Eosinophils % Basophils % Nucleated RBC % Absolute Neutrophils Absolute Lymphocytes Absolute Monocytes Absolute Eosinophils Absolute Basophils VBG pH 7.36 VBG pCO2 44 VBG pO2 35 VBG HCO3 25 VBG Total CO2 22 L VBG O2 Saturation 68 VBG Base Excess -1 VBG Lactate Sodium Potassium Chloride Carbon Dioxide Anion Gap BUN Creatinine Est GFR (CKD-EPI 2020) Glucose Calcium Total Bilirubin AST ALT Alkaline Phosphatase C-Reactive Protein 9.49 H Total Protein Albumin Urine Color Urine Clarity Urine pH Ur Specific [place] Urine Protein Urine Ketones Urine Blood Urine Nitrite Urine Bilirubin Urine Urobilinogen Ur Leukocyte Esterase Urine RBC Urine WBC Ur Epithelial Cells Urine Crystals Urine Bacteria Urine Casts Urine Mucus Ur Culture Indicated? Urine Glucose Urine Opiates Screen Urine Methadone Screen Ur Barbiturates Screen Ur Tricyclics Screen Ur Amphetamines Screen U Benzodiazepines Scrn Urine Cocaine Screen Ur THC Screen Ethyl Alcohol < 3.0 COVID-19 Source SARS-CoV-2 (PCR) Influenza Type A (PCR) Influenza Type B (PCR) RSV (PCR) 08/26/22 08/26/2208/26/23 08:46 10:04 10:04 WBC RBC Hgb Hct MCV MCH MCHC RDW Plt Count MPV Immature Gran % Neutrophils % Lymphocytes % Monocytes % Eosinophils % Basophils % Nucleated RBC % Absolute Neutrophils Absolute Lymphocytes Absolute Monocytes Absolute Eosinophils Absolute Basophils VBG pH VBG pCO2 VBG pO2 VBG HCO3 VBG Total CO2 VBG O2 Saturation VBG Base Excess VBG Lactate Sodium Potassium Chloride Carbon Dioxide Anion Gap BUN Creatinine Est GFR (CKD-EPI 2020) Glucose Calcium Total Bilirubin AST ALT Alkaline Phosphatase C-Reactive Protein Total Protein Albumin Urine Color Yellow Urine Clarity Clear Urine pH 5.5 Ur Specific [place] >= 1.030 H Urine Protein Negative Urine Ketones >=160 H Urine Blood Trace-lysed H Urine Nitrite Negative Urine Bilirubin Negative Urine Urobilinogen 0.2 Ur Leukocyte Esterase Negative Urine RBC 0-2 Urine WBC Negative Ur Epithelial Cells Few Urine Crystals Negative Urine Bacteria Rare Urine Casts Negative Urine Mucus Negative Ur Culture Indicated? No Urine Glucose 500 H Urine Opiates Screen Negative Urine Methadone Screen Negative Ur Barbiturates Screen Negative Ur Tricyclics Screen Negative Ur Amphetamines Screen Negative U Benzodiazepines Scrn Negative Urine Cocaine Screen Negative Ur THC Screen Positive A Ethyl Alcohol COVID-19 Source Nasopharynx SARS-CoV-2 (PCR) Negative Influenza Type A (PCR) Negative Influenza Type B (PCR) Negative RSV (PCR) Negative Last Vital Signs Temp 36.4 C L 08/26/22 12:38 Pulse 118 H 08/26/22 12:38 Resp 16 08/26/22 12:38 BP 101/75 08/26/22 12:38 Pulse Ox 99 08/26/22 12:38 Time Spent Time spent with Patient: 40-54 minutes Time was spent: preparing to see the patient(eg.review tests), obtaining and/or reviewing separately otained hiistory, ordering medications,tests, procedures, referring, communicating with other health childcare worker, indepentently interpreting results, counseling the patient and care coordination
[2022-08-26 15:16] VITALS: BP 113/75; PULSE 85; RESP 18; TEMP 37.2; O2SAT 100
[2022-08-26] MEDS: traMADol 50 MG TAB PO ×2 (15:21→22:01)
[2022-08-26] MEDS: MEROPENEM 1 GM in Normal Saline 100 ML IVPB (17:13)
[2022-08-26] MEDS: Insulin Aspart 300 UNITS/3 ML PEN SC (17:16)
[2022-08-26] MEDS: Lidocaine 5% Patch 1 PATCH TP (18:12)
[2022-08-26] MEDS: VANCOMYCIN/WATER (PEG) 1 GM/200 ML BAG IVPB (18:24)
[2022-08-26] MEDS: Gabapentin 300 MG CAP 900 MG PO (20:26)
[2022-08-26] MEDS: LORazepam 0.5 MG TAB PO (22:01)
[2022-08-26] MEDS: Insulin Glargine 300 UNITS/3 ML PEN 40 UNITS SC (22:04)
--- NOTE | 2022-08-27 | DI.MRI_ITS ---
Exam(s) MR LOWER EXTREMITY LT WO/W EXAM: MR LOWER EXTREMITY LT WO/W CLINICAL HISTORY: diabetic foot cellulitis, left 2nd toe ulcer. TECHNIQUE: Multiplanar multisequence MRI was performed. CONTRAST MATERIAL: IV Contrast: 18 mL of Dotarem contrast administered. COMPARISON: MR MR LOWER EXTREMITY LT WO/W from 05/26/2022 CR XR FOOT LT COMPLETE from 08/26/2022 FINDINGS: BONES/JOINTS: No evidence of fracture. Postsurgical changes of amputation of the great toe at the le jose of the metatarsophalangeal joint, the 2nd toe at the level of the PIP joint and the 3rd toe at th e level of the DIP joint are noted. There is T1 hypointense and T2 hyperintense signal seen in the p roximal phalanx of the 2nd toe. There is otherwise normal marrow signal. There is edema seen in the soft tissues surrounding the proximal phalanx of the 2nd toe. There is edema seen in the soft tissu es of the 2nd toe which may represent cellulitis. No focal fluid collection is seen to suggest an ab scess. There is fluid seen in the soft tissues around the proximal phalanx. But this shows no perip heral enhancement. MUSCULOTENDINOUS STRUCTURES: Visualized portion of the planar fascia is unremarkable. The visualized intrinsic muscles and tendons of the foot are unremarkable. SOFT TISSUES: There is edema seen in the soft tissues which shows enhancement following contrast admi nistration suggestive of cellulitis. No enhancing focal fluid collection is seen to suggest an absce ss. No soft tissue mass is appreciated. OTHER FINDINGS: None. IMPRESSION: 1. Findings suspicious for osteomyelitis of the proximal phalanx of the 2nd toe. There is associated edema/cellulitis. No enhancing focal fluid collection is seen to suggest an abscess. 2. Postsurgical changes with amputations and partial amputations involving the 1st, 2nd and 3rd toes as described above. DATA REPOSITORY:
[2022-08-27] MEDS: Normal Saline Flush 10 ML SYR IVP ×3 (00:07→12:38)
[2022-08-27] MEDS: MEROPENEM 1 GM in Normal Saline 100 ML IVPB ×3 (00:08→16:09)
[2022-08-27 00:15] VITALS: BP 116/84; PULSE 99; RESP 16; TEMP 36.3; O2SAT 98
[2022-08-27] MEDS: VANCOMYCIN/WATER (PEG) 1 GM/200 ML BAG IVPB ×3 (03:20→18:42)
[2022-08-27 07:06] LABS: Abs Immature Grans 0.03 10^3/uL (0.0-0.06); Absolute Basophil Count 0.05 10^3/uL (0.0-0.2); Absolute Eosinophil Count 0.26 10^3/uL (0.0-0.7); Absolute Lymphocyte Count 4.08 10^3/uL (1.2-3.4); Absolute Monocyte Count 1.61 10^3/uL (0.1-0.8); Basophils % 0.4; Eosinophils % 2.1; HCT 37.7 % (36.0-46.0); HGB 13.2 g/dL (11.2-15.7); Immature Grans % 0.2; Lymphocytes % 33.1; MCV 89 fL (80-95); MPV 9.5 fL (8.0-11.0); Monocytes % 13.1; Neutrophils % 51.1; Platelet Count 326 10^3/uL (130-400); RBC 4.26 10^6/uL (3.93-5.22); RDW 12.1 % (11.7-14.6); RDW-SD 39.3 fL; WBC 12.32 10^3/uL (4.4-10.8)
[2022-08-27 07:12] LABS: Anion Gap 7.2 mmol/L (3-11); BUN 8 mg/dL (7-18); CO2 27.8 mmol/L (21.0-32.0); CREATININE 0.5 mg/dL (0.55-1.02); Calcium 8.6 mg/dL (8.5-10.1); Chloride 98 mmol/L (98-107); Estimated GFR 123.81 (mL/min/1.73m2); Glucose 178 mg/dL (74-106); Magnesium 1.9 mg/dL (1.8-2.4); Potassium 3.4 mmol/L (3.5-5.1); Sodium 133 mmol/L (136-145)
[2022-08-27 07:45] VITALS: BP 102/76; PULSE 92; RESP 18; TEMP 36.4; O2SAT 99
[2022-08-27 08:40] LABS: Diff Comment Diff Reviewed; RBC Morphology Normal
[2022-08-27] MEDS: Empaglifozin 10 MG TAB PO (09:20)
[2022-08-27] MEDS: Gabapentin 300 MG CAP PO (09:21)
[2022-08-27] MEDS: Insulin Aspart 300 UNITS/3 ML PEN SC ×3 (09:23→13:36)
--- NOTE | 2022-08-27 10:43 | PDOC.CMIN ---
- If Service Date Differs Date of service: 08/27/22 Time of Service: 10:43 Care Management Initial Assess REASON FOR HOSPITALIZATION:: Cellulitis, hyperglycemia, IDDM PAST MEDICAL HISTORY/PAST SURGICAL HISTORY:: All Active Problems. Cellulitis of foot (Acute). Diabetic toe ulcer (Acute). Abscess (Acute). Vomiting (Acute). Gastroparesis (Chronic). Vomiting (Acute). Acute dehydration (Acute). Nausea and vomiting (Acute). IDDM (insulin dependent diabetes mellitus) (Chronic). Tobacco abuse (Acute). Cannabinoid hyperemesis syndrome (Acute). Upper GI bleeding (Acute). UTI (urinary tract infection) (Acute). Hypokalemia (Acute). Type 2 diabetes mellitus (Chronic). Type 2 diabetes mellitus with diabetic neuropathy (Chronic). Ulcer of other part of foot (Acute). Amputation of toe of left foot (Acute). Infection of toe (Acute). Osteomyelitis (Acute). Medical History. Anxiety and depression. Back pain. Cellulitis of third toe, left. Chest pain. r/t Anxiety. Diabetes. Type 1, per patient she said she was told she had diabetes type 2. Diabetic neuropathy. History of cellulitis. toe. History of kidney stones. History of osteomyelitis. IBS (irritable bowel syndrome). Peripheral neuropathy. Suicide attempt. Surgical History. Amputation of left great toe. H/O tubal ligation. History of amputation. 2nd toe left foot PREVIOUS FUNCTIONAL STATUS/SOCIAL/FAMILY SUPPORTS:: Stella relocated to [place], [place] from [place] with her Fermin and 4 children about a year ago. They live in a single family [facility] with their children, her [id number] and her [id number]'s sister. Stella has 5 children now. They fostered, then adopted, 7 and 17 year old siblings. They recently took in a 5 year old boy that she is fostering short term and plans to adopt a 13 year old girl she is fostering. She and her have an 11 year old girl of their own. 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 CURRENT FUNCTIONAL STATUS:: Stella was sitting up in bed when CM met with her. She was pleasant and engaged in conversation. She stated that she had an MRI, and is awaiting results. She is also planning to see Dr. Gabriel, who is following her closely. She stated that she may be ready to return home today or tomorrow, depending on the MRI results, and the plan of care. CM will continue to follow. ADVANCE DIRECTIVES:: none on file Has patient been provided with info about the portal/API?: Yes Did the patient sign up for the portal?: No CODE STATUS:: Full Code INSURANCE COVERAGE / FINANCIAL ISSUES:: BCBS/ [employer] CURRENT HOME/COMMUNITY SERVICES/EQUIPMENT:: None. PRIMARY CARE PHYSICIAN:: Stella is currently awaiting an appointment at the [facility]. She is still connected to her PCP in [place], until this change occurs. POTENTIAL DISCHARGE NEEDS:: Follow up appointments PATIENT/FAMILY EDUCATION NEEDS:: Review discharge instructions and limitations, discussion of self care needs including ask me three. ANTICIPATED BARRIERS TO DISCHARGE:: None identified at this time. TRANSPORTATION:: Via private vehicle by family. PLAN:: Anticipate Stella will return home when medically cleared. Her will drive her home via private vehicle. She will follow up with her PCP, if she has established with a local provider, or the computer education professor MD, if not. She will follow her discharge plan of care. CM will continue to follow.
--- NOTE | 2022-08-27 12:12 | W.DIABETESNO ---
Date of service: 08/27/22 Time of Service: 12:12 Diabetes Note Reason for Visit: DM2 NOTE: Diabetes consult received. Will follow up on Tuesday and provide diabetes self management education per need. Time Spent in Nutritional Counseling and Treatment: 0
[2022-08-27] MEDS: Gadoterate meglumine 20 ML SYRINGE 18 ML IVP (12:38)
[2022-08-27] MEDS: traMADol 50 MG TAB PO ×2 (13:34→22:06)
[2022-08-27] MEDS: Enoxaparin 40 MG/0.4 ML SYR SC (13:34)
[2022-08-27] MEDS: Acetaminophen 325 MG TAB PO (13:34)
--- NOTE | 2022-08-27 15:23 | W.PM.PROGNOT ---
Date of Service Date of service: 08/27/22 Time of Service: 15:24 Assessment and Plan Assessment and plan (1) Diabetic toe ulcer: Status: Acute Assessment and plan: Broad-spectrum antibiotics including meropenem and vancomycin. Wound cultures from 08/24/2022 + for staph aureus and group G strep. Neg. blood cultures to date. MRI Left foot: 1. Findings suspicious for osteomyelitis of the proximal phalanx of the 2nd toe.? There is associated edema/cellulitis.? No enhancing focal fluid collection is seen to suggest an abscess. 2. Postsurgical changes with amputations and partial amputations involving the 1st, 2nd and 3rd toes? Consulted Dr. Gabriel, podiatry to follow-up with incision and debridement of the left second toe. If the wound cultures do not grow MRSA and her nasal swab for MRSA nares are negative then we could probably discontinue the vancomycin and just treat her with ceftriaxone which would cover both strep and non-MRSA Staph aureus. Patient states that tramadol has been adequate for controlling her pain. (2) Cellulitis of foot: Status: Acute Assessment and plan: As above (3) IDDM (insulin dependent diabetes mellitus): Status: Chronic Assessment and plan: We will treat with basal bolus since. Cont. Jardiance and as well as her Januvia. Admitting hospitalist discussed CGM monitoring as well as insulin pump. Apparently she has been in discussion with her case management social worker at [facility] regarding this. She did have a CGM monitor but the new equipment was no longer compatible with her older android phone. Subjective Subjective Patient reports: no new complaints, pain is less, tolerating a regular diet and afebrile; denies nausea or vomiting Exam Narrative Exam Narrative: Gen: Pleasant, in NAD. HEENT is unremarkable Lungs are clear to auscultation Heart is regular rate and rhythm without murmur Abdomen soft nontender Extremities right leg and foot is without edema she has normal pedal pulses left leg shows no calf swelling or tenderness. Mild edema of the dorsum of her left foot with mild redness of the dorsal left 2nd toe and foot that has retreated from the proximal line of demarcation. Tip to the left second toe has a black eschar at edges of open area and is draining some nonpurulent material. She is absent her left great toe which she had previously been amputated and the distal tip of her third toe is also missing. She has palpable pedal pulses. Objective Last Vital Signs Temp 36.4 C 08/27/22 07:45 Pulse 92 H 08/27/22 07:45 Resp 18 08/27/22 07:45 BP 102/76 08/27/22 07:45 Pulse Ox 99 08/27/22 07:45 Laboratory Results - last 24 hr 08/27/22 08/27/22 06:36 06:36 WBC 12.32 H RBC 4.26 Hgb 13.2 D Hct 37.7 MCV 89 MCH 31.0 MCHC 35.0 RDW 12.1 Plt Count 326 MPV 9.5 Immature Gran % 0.2 Neutrophils % 51.1 Lymphocytes % 33.1 Monocytes % 13.1 Eosinophils % 2.1 Basophils % 0.4 Nucleated RBC % 0.0 Absolute Neutrophils 6.30 Absolute Lymphocytes 4.08 H Absolute Monocytes 1.61 H Absolute Eosinophils 0.26 Absolute Basophils 0.05 RBC Morphology Normal Sodium 133 L Potassium 3.4 L Chloride 98 Carbon Dioxide 27.8 Anion Gap 7.2 BUN 8 Creatinine 0.5 L Est GFR (CKD-EPI 2020) 123.81 Glucose 178 H Calcium 8.6 Magnesium 1.9 Time Spent with Patient Time Spent with Patient: 25-34 minutes Time was spent: preparing to see the patient(eg.review tests), obtaining and/or reviewing separately otained hiistory, ordering medications,tests, procedures and indepentently interpreting results
[2022-08-27 15:40] VITALS: BP 107/76; PULSE 99; RESP 16; TEMP 36.3; O2SAT 98
[2022-08-27 17:24] LABS: Vancomycin, Trough 13.4 ug/mL (10.0-20.0)
[2022-08-27] MEDS: Lidocaine 5% Patch 1 PATCH TP (18:44)
[2022-08-27] MEDS: LORazepam 0.5 MG TAB PO (22:05)
[2022-08-27] MEDS: Gabapentin 300 MG CAP 900 MG PO (22:06)
[2022-08-27] MEDS: Insulin Glargine 300 UNITS/3 ML PEN 40 UNITS SC (22:06)
[2022-08-28] MEDS: MEROPENEM 1 GM in Normal Saline 100 ML IVPB ×2 (00:53→07:56)
[2022-08-28] MEDS: VANCOMYCIN/WATER (PEG) 1 GM/200 ML BAG IVPB ×2 (01:57→10:36)
[2022-08-28 03:27] VITALS: BP 120/83; PULSE 99; RESP 16; TEMP 36.8; O2SAT 99
[2022-08-28 05:50] VITALS: BP 107/68; PULSE 104; RESP 16; TEMP 36.8; O2SAT 97
[2022-08-28 06:26] LABS: Lactate 0.6 mmol/L (0.6-1.4)
[2022-08-28 06:27] LABS: Abs Immature Grans 0.03 10^3/uL (0.0-0.06); Absolute Basophil Count 0.06 10^3/uL (0.0-0.2); Absolute Eosinophil Count 0.31 10^3/uL (0.0-0.7); Absolute Lymphocyte Count 4.13 10^3/uL (1.2-3.4); Absolute Monocyte Count 1.25 10^3/uL (0.1-0.8); Absolute Neutrophil Count 4.04 10^3/uL (1.2-6.7); Basophils % 0.6; Eosinophils % 3.2; HCT 41.3 % (36.0-46.0); HGB 14.2 g/dL (11.2-15.7); Immature Grans % 0.3; Lymphocytes % 42.1; MCH 31.1 pg (27.0-33.0); MCHC 34.4 % (32.0-36.0); MCV 90 fL (80-95); MPV 9.3 fL (8.0-11.0); Monocytes % 12.7; Neutrophils % 41.1; Platelet Count 320 10^3/uL (130-400); RBC 4.57 10^6/uL (3.93-5.22); RDW 12.5 % (11.7-14.6); RDW-SD 41.2 fL; WBC 9.82 10^3/uL (4.4-10.8)
[2022-08-28 06:49] LABS: Anion Gap 8.1 mmol/L (3-11); BUN 9 mg/dL (7-18); CO2 27.9 mmol/L (21.0-32.0); CREATININE 0.6 mg/dL (0.55-1.02); Calcium 9.2 mg/dL (8.5-10.1); Chloride 104 mmol/L (98-107); Estimated GFR 118.49 (mL/min/1.73m2); Glucose 117 mg/dL (74-106); Potassium 3.9 mmol/L (3.5-5.1); Sodium 140 mmol/L (136-145)
[2022-08-28] MEDS: Empaglifozin 10 MG TAB PO (07:56)
[2022-08-28] MEDS: Gabapentin 300 MG CAP PO (07:56)
[2022-08-28] MEDS: Normal Saline Flush 10 ML SYR IVP (07:57)
[2022-08-28] MEDS: traMADol 50 MG TAB PO (10:27)
[2022-08-28] MEDS: Acetaminophen 325 MG TAB PO (10:27)
--- NOTE | 2022-08-28 10:35 | W.PM.DS.N ---
Date of service: 08/28/22 Time of Service: 10:35 DS: Diagnosis Discharge Diagnosis (1) Diabetic toe ulcer: Status: Acute Asessment and Plan: Follows with Dr Gabriel, Podiatry. See Cellulitis of foot. (2) Cellulitis of foot: Status: Acute Asessment and Plan: The day following admission her cellulitis had improved significantly and there was only serous drainage from the distal toe ulcer. She has an appt with Dr Gabriel this coming week. Growth of staph aureus and Group G strep on tissue culture obtained by Dr Gabriel in her office. MRSA screen (nasal swab) is still pending at time of discharge. Augmentin should cover the above bacteria. This is what she was initiated on and may have just not been given enough time to see improvement before she presented to the ED. Should she see worseing redness, increased purulent drainage, she should return to the ED. MRI of foot showed findings suspicious for osteomyelitis of the proximal phalanx of the 2nd toe.? There is associated edema/cellulitis.? No enhancing focal fluid collection is seen to suggest an abscess. She and Dr Gabriel will decide on amputation, which would likely be curative of the osteomyelitis, or a longer trial of antibiotics, possibly IV. (3) IDDM (insulin dependent diabetes mellitus): Status: Chronic Asessment and Plan: Cont. home regimen. She [place] [facility] [place] Plan Disposition Patient Disposition: Home Condition: Improving Discharge Details Reason For Visit: Cellulitus,Hyperglycemia,IDDM Admit Date/Time: 08/26/22 11:29 Admit Provider: Mukesh Foley Attending Provider: Mukesh Foley Primary Care Provider: Unknown,Unknown Hospital Course Hospital Course: This 37-year-old female with type 1 diabetes mellitus for last 10 years has been followed by her welder assistant Dr. Gabriel for treatment of a diabetic toe ulcer.? Patient has previous history of a distal amputation of her left third toe distal phalanx amputation after failure of the toe to improve with antibiotics.? This was performed on 05/28/2022.? Postoperatively she has been followed by Dr. Gabriel in the office on 06/08/2022 and 06/10/2022.? She was then seen in the office on 08/24/2022 and found to have an ulceration with purulence on the left second digit.? This was incised and drained and she was put on Augmentin.? In spite of that she has had worsening swelling of her foot and left second toe.'s been associated with some fever and chills.? Evaluation in the emergency department showed a white count of 15,700 which actually has declined from a high of 23,500 when she was started on antibiotics on 08/24/2022.? Patient has had associated nausea and vomiting and generalized weakness.? She was directed to the emergency department where she was evaluated and advised to be admitted to the hospital.? Hospital service was called to admit the patient for IV antibiotics.? Preliminary wound culture from 08/24/2022 demonstrated Staph aureus and group G Streptococcus.? Blood cultures were obtained the emergency department and she was given a dose of Zosyn. Her antibiotic coverage was changed to meropenem and vancomycin.? She did get the first dose of vancomycin in the emergency department. See Diagnosis Home Meds and New Rx's Prescriptions: New Jardiance 10 mg Tablet 10 mg PO DAILY Qty: 30 0RF tramadol 50 mg Tablet 50 mg PO Q6H PRN PRNQty: 30 0RF amoxicillin-pot clavulanate 875-125 mg tablet 1 tab PO BID Qty: 20 0RF Continued gabapentin 300 mg Tablet 300 - 900 mg PO DIRECTED Rx Instructions: 300 qam 900 hs lorazepam 0.5 mg Tablet 0.5 mg PO DAILY insulin aspart U-100 [Novolog FlexPen U-100 Insulin] 100 unit/mL (3 mL) insulin pen 12 unit SUBCUT TID Patient Comments: INJECT 9 UNITS SUBCUTANEOUSLY THREE TIMES DAILY WITH MEALS insulin glargine [Lantus Solostar U-100 Insulin] 100 unit/mL (3 mL) insulin pen 40 unit SUBCUT HS Patient Comments: INJECT 40 UNITS SUBCUTANEOUSLY AT BEDTIME promethazine 25 mg tablet 25 mg PO TID PRN (Reason: nausea and vomiting) Qty: 7 0RF Patient Comments: not taking prochlorperazine 25 mg Suppository 25 mg MS Q12H PRN nystatin 100,000 unit/gram Cream 1 applic TOPICAL DAILY Patient Comments: not taking lidocaine [Lidoderm] 5 % adhesive patch,medicated 1 patch topical DIRECTED Patient Comments: PLACE 1 PATCH ONTO THE SKIN DAILY. PATCHE(S) MAY REMAIN IN PLACE FOR UP TO 12 HOURS IN ANY 24-HOUR PERIOD omeprazole 20 mg Capsule,Delayed Release(Dr/Ec) 20 mg PO DAILY Patient Comments: not taking nicotine 7 mg/24 hr patch 24 hour 1 patch topical DAILY Patient Comments: APPLY 1 PATCH DAILY TOPICALLY TO SKIN WITHOUT HAIR. APPLY TO A DIFFERENT SITE AT THE SAME TIME EACH DAY, AFTER COMPLETION OF 14MG PATCHES Januvia 50 mg Tablet 50 mg PO DAILY ondansetron 4 mg tablet,disintegrating 4 mg PO Q8H PRN (Reason: nausea and vomiting) metoclopramide HCl [Reglan] 10 mg tablet 10 mg PO HS PRN promethazine 25 mg suppository 25 mg MS ONCE PRN Rx Instructions: may repeat once in 12 hours Discontinued amoxicillin-pot clavulanate 875-125 mg tablet 1 tab PO BID Qty: 20 0RF Patient Comments: not taking Jardiance 10 mg Tablet 10 mg PO DAILY tramadol 50 mg tablet 50 mg PO Q6H PRN Patient Comments: TAKE 1 TABLET BY MOUTH EVERY 6 HOURS NEEDED FOR PAIN - DAILY MAX 4 TABLETS (200MG) No Action (DME) Dexcom G6 Sensor Device See Rx Instructions .Route Qty: 6 0RF Rx Instructions: As directed Discharge Instructions Instructions: Osteomyelitis (DC) Activity:: Activity as Tolerated Equipment/Supplies:: No Equipment Needed Diet:: Carb Counting Discharge Orders Discharge Orders: Discharge Order (Routine); Ordered 08/28/22 Ordered By: David Gay DS: Summary Time Spent with Patient providing and/or coordinating discharge services: Greater than 30 minutes Status at Discharge Functional status at discharge: independent ambulation Overall status at discharge: patient is progressing back to baseline Mental Status: mental status grossly normal Speech and Movement: speech and movement normal Mood: congruent mood Affect: normal affect Exam Narrative Exam Narrative: Gen: Pleasant, in NAD. Sitting up in bed. HEENT is unremarkable Lungs are clear to auscultation Heart is regular rate and rhythm without murmur Abdomen soft nontender Extremities right leg and foot is without edema she has normal pedal pulses left leg shows no calf swelling or tenderness. Mild edema of the dorsum of her left foot with mild redness of the dorsal left 2nd toe and foot that has retreated from the proximal line of demarcation. Tip to the left second toe has a black eschar at edges of open area and is draining some nonpurulent material. She is absent her left great toe which she had previously been amputated and the distal tip of her third toe is also missing. Psych Mental Status: mental status grossly normal Speech and Movement: speech and movement normal Mood: congruent mood Affect: normal affect DS: Data Vitals/I&O Vitals and I&O: Vital Signs Temperature 36.8 C 08/28/22 05:50 Temperature Source Tympanic 08/28/22 05:50 Pulse 104 H 08/28/22 05:50 Pulse Rhythm Regular 08/27/22 23:23 Respiratory Rate 16 08/28/22 05:50 Respiratory Effort Normal 08/27/22 23:23 Respiratory Depth Normal 08/27/22 23:23 Respiratory Pattern Normal 08/27/22 23:23 Blood Pressure 107/68 08/28/22 05:50 Pulse Oximetry 97 08/28/22 05:50 Oxygen Delivery Method Room Air 08/28/22 05:50 Oxygen Flow Rate 0 08/28/22 05:50 Pain Level 7 08/28/22 10:27 Intake & Output 08/27/22 08/27/22 08/28/22 11:59 23:59 11:59 Intake Total 680 / 980 300 / 980 300 / 300 Balance 680 / 980 300 / 980 300 / 300 Weight 89.9 kg 90.1 kg Intake: IV 680 / 980 300 / 980 300 / 300 Other: Urine Appearance Clear Comment patient voids indendently in br Voiding Methods Toilet Data Completed and Pending Labs on day of discharge: Labs from last 24 hours 08/28/22 08/28/22 08/28/22 06:20 06:20 06:20 WBC 9.82 RBC 4.57 Hgb 14.2 Hct 41.3 MCV 90 MCH 31.1 MCHC 34.4 RDW 12.5 Plt Count 320 MPV 9.3 Immature Gran % 0.3 Neutrophils % 41.1 Lymphocytes % 42.1 Monocytes % 12.7 Eosinophils % 3.2 Basophils % 0.6 Nucleated RBC % 0.0 Absolute Neutrophils 4.04 Absolute Lymphocytes 4.13 H Absolute Monocytes 1.25 H Absolute Eosinophils 0.31 Absolute Basophils 0.06 VBG Lactate 0.6 Sodium 140 Potassium 3.9 Chloride 104 Carbon Dioxide 27.9 Anion Gap 8.1 BUN 9 Creatinine 0.6 Est GFR (CKD-EPI 2020) 118.49 Glucose 117 H Calcium 9.2 Vancomycin Trough 08/27/22 16:59 WBC RBC Hgb Hct MCV MCH MCHC RDW Plt Count MPV Immature Gran % Neutrophils % Lymphocytes % Monocytes % Eosinophils % Basophils % Nucleated RBC % Absolute Neutrophils Absolute Lymphocytes Absolute Monocytes Absolute Eosinophils Absolute Basophils VBG Lactate Sodium Potassium Chloride Carbon Dioxide Anion Gap BUN Creatinine Est GFR (CKD-EPI 2020) Glucose Calcium Vancomycin Trough 13.4 08/27/22 10:30 Nose MRSA Screen - Pending Preliminary micro results at discharge 08/26/22 09:30 Blood Culture - Preliminary Blood NO GROWTH 24 HOURS 08/27/22 10:30 MRSA Screen - Pending Nose 08/26/22 08:42 Blood Culture - Preliminary Blood NO GROWTH 24 HOURS PFSH All Active Problems Cellulitis of foot (Acute) Diabetic toe ulcer (Acute) Abscess (Acute) Vomiting (Acute) Gastroparesis (Chronic) Vomiting (Acute) Acute dehydration (Acute) Nausea and vomiting (Acute) IDDM (insulin dependent diabetes mellitus) (Chronic) Tobacco abuse (Acute) Cannabinoid hyperemesis syndrome (Acute) Upper GI bleeding (Acute) UTI (urinary tract infection) (Acute) Hypokalemia (Acute) Type 2 diabetes mellitus (Chronic) Type 2 diabetes mellitus with diabetic neuropathy (Chronic) Ulcer of other part of foot (Acute) Amputation of toe of left foot (Acute) Infection of toe (Acute) Osteomyelitis (Acute) Medical History Anxiety and depression Back pain Cellulitis of third toe, left Chest pain r/t Anxiety Diabetes Type 1, per patient she said she was told she had diabetes type 2. Diabetic neuropathy History of cellulitis toe History of kidney stones History of osteomyelitis IBS (irritable bowel syndrome) Peripheral neuropathy Suicide attempt Surgical History Amputation of left great toe H/O tubal ligation History of amputation 2nd toe left foot Family History Paternal Grandmother Heart disease Diabetes Maternal Aunt Hypertension Breast cancer maternal great aunt Maternal Grandfather Hypertension Maternal Grandmother Breast cancer Maternal Aunt No problems noted. Maternal Cousin Breast cancer Maternal Cousin Breast cancer Maternal Cousin Breast cancer Social History Smoking/Tobacco Use Status: Current every day Tobacco Type: cigarettes Smoking risk assessment performed?: Yes Alcohol Intake: former Drug use: Socially Substance use type: former substance user Do you feel safe at home: Yes Do you feel safe in your relationship?: Yes Time Spent with Patient Time Spent with Patient: <45 minutes Time was spent: preparing to see the patient(eg.review tests), indepentently interpreting results, counseling the patient and care coordination
--- NOTE | 2022-08-28 19:04 | PDOC.CMDIS ---
- If Service Date Differs Date of service: 08/28/22 Time of Service: 19:04 LACE Index Scoring Tool - Questions: Length of Stay (in days): 2 Acuity (Admit via E.D.?): Yes Comorbidities: Diabetes w/o Complication E.D. Visits: 10 - Answers: Total Score: 10 Risk of Readmission: High Risk Care Management Discharge Reason for Hospitalization: Cellulitis, hyperglycemia, IDDM Discharge Plan: Cristy returned home with no new services. Her picked her up via private vehicle. She will follow up with her PCP, podiatry, and her discharge plan of care. She was happy to be going home. Patient/Family Education Needs: Review discharge instructions and limitations, discussion of self care needs including ask me three.
== END 2022-08-28 12:45 | disposition home or self-care (01) | DRG 638 ==
LOC: ER 11:53 → MS 12:08
PROVIDERS: Family Medicine; Nurse Practitioner Family; Admitting Provider Internal Medicine; Emergency Provider Physician Assistant; Visit Provider Internal Medicine
DX: E10.621 Type 1 diabetes mellitus with foot ulcer (principal); L03.116 Cellulitis of left lower limb; M86.172 Other acute osteomyelitis, left ankle and foot; E10.69 Type 1 diabetes mellitus with other specified complication; Z79.4 Long term (current) use of insulin; E10.628 Type 1 diabetes mellitus with other skin complications; Z89.422 Acquired absence of other left toe(s); L97.529 Non-pressure chronic ulcer of other part of left foot with unspecified severity; B95.61 Methicillin susceptible Staphylococcus aureus infection as the cause of diseases classified elsewhere; B95.4 Other streptococcus as the cause of diseases classified elsewhere; E10.43 Type 1 diabetes mellitus with diabetic autonomic (poly)neuropathy; K31.84 Gastroparesis; R11.2 Nausea with vomiting, unspecified; E86.0 Dehydration; F17.210 Nicotine dependence, cigarettes, uncomplicated; E87.6 Hypokalemia; E10.40 Type 1 diabetes mellitus with diabetic neuropathy, unspecified; F41.8 Other specified anxiety disorders; M54.9 Dorsalgia, unspecified; K58.9 Irritable bowel syndrome, unspecified; Z91.51 Personal history of suicidal behavior
CPT/HCPCS: 36415; 36416; 80048; 80053; 80307; 82805; 82962; 87040; 87081; 87637; 93005; 96365; 96367; 96368; 96372; 96375; 99285; J1650; 71046; 73630; 73720; 80202; 80320; 81003; 81015; 83605; 83735; 85025; 86140; 93010; 99222; 99232; 99239; J0780; J2543; J2765; J3490

== ENCOUNTER 2022-09-10 06:57 | Day surgery (SDC) | payer BC, MEDICAID, SELFPAY ==
[2022-09-10 06:57] VITALS: BP 103/88; PULSE 103; RESP 20; TEMP 36.3; O2SAT 100
[2022-09-10] MEDS: VANCOMYCIN/WATER (PEG) 2 GM/400 ML BAG IVPB (07:20)
[2022-09-10] MEDS: Lactated Ringers 1,000 ML 80 ML IV (07:21)
--- NOTE | 2022-09-10 08:22 | W.ANESPRE ---
General Info Date of Service Date Performed: 09/10/22 Height: 5 ft 4 in Weight: 89.811 kg Body Mass Index (BMI): 34.0 Surgical Procedure: Operation Date: 09/10/22 08:25 Proposed Procedure Side Surgeon p Toe Amputation, 2nd Toe Left Ester Gabriel DPM Meds Allergies and Home Medications Allergies Allergy/AdvReac Type Severity Reaction Status Date / Time ibuprofen [From Advil] Allergy Severe throat Verified 09/10/22 07:03 closes pomegranate Allergy Severe Anaphylaxis Verified 09/10/22 07:03 citalopram AdvReac Severe Bodily harm Verified 09/10/22 07:03 Home Medication Medication Instructions Recorded gabapentin 300 mg tablet 300 - 900 mg PO DIRECTED 01/24/21 lorazepam 0.5 mg tablet 0.5 mg PO DAILY 01/24/21 insulin aspart U-100 100 unit/mL 12 unit subcut TID 01/14/22 (3 mL) subcutaneous pen (Novolog FlexPen U-100 Insulin aspart) insulin glargine 100 unit/mL (3 40 unit subcut HS 01/14/22 mL) subcutaneous pen (Lantus Solostar U-100 Insulin) promethazine 25 mg tablet 25 mg PO TID PRN nausea and 02/06/22 vomiting #7 tabs blood-glucose sensor (Dexcom G6 #6 ea 05/03/22 Sensor device) lidocaine 5 % topical patch 1 patch topical DIRECTED 05/25/22 (Lidoderm) metoclopramide HCl 10 mg tablet 10 mg PO HS PRN 05/25/22 (Reglan) nicotine 7 mg/24 hr daily 1 patch topical DAILY 05/25/22 transdermal patch nystatin 100,000 unit/gram topical 1 applic topical DAILY 05/25/22 cream omeprazole 20 mg capsule,delayed 20 mg PO DAILY 05/25/22 release ondansetron 4 mg disintegrating 4 mg PO Q8H PRN nausea and vomiting 05/25/22 tablet promethazine 25 mg rectal 25 mg HI ONCE PRN 05/27/22 suppository empagliflozin 10 mg tablet 10 mg PO DAILY #30 tabs 08/28/22 (Jardiance) tramadol 50 mg tablet 50 mg PO Q6H PRN PRN #30 tabs 08/28/22 sulfamethoxazole 800 1 tab PO Q12H 10 days #20 tabs 09/01/22 mg-trimethoprim 160 mg tablet (Bactrim DS) Current Visit Medications: Current Medications Generic Name Dose Route Start Last Admin Trade Name Bonnie PRN Reason Stop Dose Admin Ringer's Solution 1,000 mls @ 80 mls/hr 09/10/22 06:00 09/10/22 07:21 IV 10/09/22 23:59 80 mls/hr INFUSION ROXANA Administration Vancomycin/PEG/NADA/Lysine/Water 2 gm in 400 mls @ 200 mls/hr 09/10/22 06:00 09/10/22 07:20 Vancocin Injection IVPB 09/10/22 18:00 200 mls/hr PREOP ROXANA Administration IV Miscellaneous Supplies 1 each 09/10/22 06:00 Iv Access IV 10/09/22 23:59 DIRECTED ROXANA Sodium Chloride 0 ml 09/10/22 06:00 Normal Saline Flush 10 Ml Syr IV 10/09/22 23:59 PRN PRN Sodium Chloride 0 ml 09/10/22 06:00 Normal Saline 10 Ml Vial IJ 10/09/22 23:59 DIRECTED PRN Sterile Water 0 ml 09/10/22 06:00 Water,Injection,Sterile 10 Ml Vial IJ 10/09/22 23:59 DIRECTED PRN PFSH Active Problems Active Problems: Problem Status Onset Code Calf pain M79.669 Cellulitis of foot L03.119 Diabetic toe ulcer E11.621, L97.509 Abscess L02.91 Vomiting R11.10 Gastroparesis K31.84 Vomiting R11.10 Acute dehydration E86.0 Nausea and vomiting R11.2 IDDM (insulin dependent diabetes mellitus) Tobacco abuse Z72.0 Cannabinoid hyperemesis syndrome R11.2, F12.90 Upper GI bleeding K92.2 UTI (urinary tract infection) N39.0 Diabetic foot ulcer associated with secondary diabetes mellitus E08.621, L97.509 Hypokalemia E87.6 Type 2 diabetes mellitus E11.9 Type 2 diabetes mellitus with diabetic neuropathy E11.40 Ulcer of other part of foot L97.509 Amputation of toe of left foot S98.132A Infection of toe L08.9 Osteomyelitis M86.9 Medical History Medical History Anxiety and depression Back pain Cellulitis of third toe, left Chest pain r/t Anxiety Diabetes Type 1, per patient she said she was told she had diabetes type 2. Diabetic neuropathy History of cellulitis toe History of kidney stones History of osteomyelitis IBS (irritable bowel syndrome) Peripheral neuropathy Suicide attempt Surgical History Surgical History Amputation of left great toe H/O tubal ligation History of amputation 2nd toe left foot Tobacco Smoking/Tobacco Use Status: Current every day Tobacco Type: cigarettes Smoking cigarettes per day: 10 Alcohol Alcohol Intake: current Alcohol intake frequency: holidays/special occasions only Substance Use Substance use: Daily Substance use type: marijuana Vital Signs and Lab Results Vital Signs Most Recent Vital Signs in EMR: Most Recent Vital Signs Temp Pulse Resp BP Pulse Ox 36.3 C L 103 H 20 103/88 100 09/10/22 06:57 09/10/22 06:57 09/10/22 06:57 09/10/22 06:57 09/10/22 06:57 Point of Care Results Point of Care Results: POC- Test(urine) Negative 09/10/22 07:33 Finger Stick Blood Glucose 182 09/10/22 07:12 Lab Results Blood Type / Crossmatch: No Data to Display Complete Blood Count: White Blood Count 9.82 10^3/uL (4.4-10.8) 08/28/22 06:20 Red Blood Count 4.57 10^6/uL (3.93-5.22) 08/28/22 06:20 Hemoglobin 14.2 g/dL (11.2-15.7) 08/28/22 06:20 Hematocrit 41.3 % (36.0-46.0) 08/28/22 06:20 Platelet Count 320 10^3/uL (130-400) 08/28/22 06:20 Venous Blood Lactate 0.6 mmol/L (0.6-1.4) 08/28/22 06:20 Complete Metabolic Panel: Sodium 140 mmol/L (136-145) 08/28/22 06:20 Potassium 3.9 mmol/L (3.5-5.1) 08/28/22 06:20 Chloride 104 mmol/L (98-107) 08/28/22 06:20 Carbon Dioxide 27.9 mmol/L (21.0-32.0) 08/28/22 06:20 BUN 9 mg/dL (7-18) 08/28/22 06:20 Creatinine 0.6 mg/dL (0.55-1.02) 08/28/22 06:20 Est GFR (CKD-EPI 2020) 118.49 (mL/min/1.73m2) 08/28/22 06:20 Magnesium 1.9 mg/dL (1.8-2.4) 08/27/22 06:36 Calcium 9.2 mg/dL (8.5-10.1) 08/28/22 06:20 Albumin 3.5 g/dL (3.4-5.0) 08/26/22 08:42 Glucose 117 mg/dL (74-106) H 08/28/22 06:20 C-Reactive Protein 9.49 mg/dL (0.0-0.3) H 08/26/22 08:42 Liver Function Panel: Alanine Aminotransferase (ALT/SGPT) 31 U/L (14-59) 08/26/22 08:42 Aspartate Amino Transf (AST/SGOT) 25 U/L (15-37) 08/26/22 08:42 Coagulation Panel: No Data to Display Cardiac Panel: No Data to Display Arterial Blood Gas: No Data to Display Venous Blood Gas: Venous Blood pH 7.36 (7.31-7.41) 08/26/22 08:42 Venous Blood Partial Pressure O2 35 mmHg 08/26/22 08:42 Venous Blood Partial Pressure CO2 44 mmHg (41-51) 08/26/22 08:42 Venous Blood Oxygen Saturation 68 % 08/26/22 08:42 Venous Blood HCO3 25 mmol/L (23-28) 08/26/22 08:42 Venous Blood Base Excess -1 mmol/L (-2-3) 08/26/22 08:42 Venous Blood Total Carbon Dioxide 22 mmol/L (24-29) L 08/26/22 08:42 Pancreas Panel: No Data to Display Thyroid Panel: No Data to Display Infectious Disease: Coronavirus (COVID-19)(PCR) Negative (Negative) 08/26/22 08:46 Coronavirus 2019 Source Nasopharynx 08/26/22 08:46 Influenza Virus Type A (PCR) Negative (Negative) 08/26/22 08:46 Influenza Virus Type B (PCR) Negative (Negative) 08/26/22 08:46 Respiratory Syncytial Virus (PCR) Negative (Negative) 08/26/22 08:46 Blood Cultures: No Data to Display Toxicology Panel: Ethyl Alcohol Level < 3.0 mg/dL (<10) 08/26/22 08:42 Urine Amphetamines Screen Negative (Negative) 08/26/22 10:04 Urine Benzodiazepines Screen Negative (Negative) 08/26/22 10:04 Urine Barbiturates Screen Negative (Negative) 08/26/22 10:04 Urine Cocaine Screen Negative (Negative) 08/26/22 10:04 Urine Methadone Screen Negative (Negative) 08/26/22 10:04 Urine Opiates Screen Negative (Negative) 08/26/22 10:04 Ur Tricyclic Antidepressants Screen Negative (Negative) 08/26/22 10:04 Ur Tetrahydrocannabinol (THC) Scrn Positive (Negative) A 08/26/22 10:04 Panel: No Data to Display Imaging and Studies Imaging and Studies Study information below may be from another EMR and interpreted by another provider. Please see original notes in EMR for more complete details. EKG Summary: 04/27: sinus tachy. Anesthesia Assessment and Plan Anesthesia History Personal History: No History of Anesthesia Complications Family History: No Family History of Anesthesia Complications Exercise Tolerance Exercise Tolerance: Metabolic Equivalents>4 Cardiac & Pulmonary Exam Cardiac Exam: Normal S1/S2 Heart Sounds Pulmonary Exam: Clear Bilateral Breath Sounds Implantable Cardiac Device Does patient have a Pacemaker or an ICD?: No Airway Exam Known Difficult Airway: No Mallampati Class: 2 Mouth Opening: Normal (> 3cm) Thyromental Distance: Greater than 3 cm Neck Range of Motion: Full ROM Neck Circumference: Normal Teeth Condition: Normal Dentition ASA Classification ASA Score: ASA 2 Emergency Case?: No NPO Status NPO Status: NPO Clears >2 hours, Solids >8 hours Status Status: Negative HCG Anesthesia Plan Resuscitation Status: Full Code Anesthesia Technique: General Anesthesia Airway Planned: Natural Airway Monitors Used: Standard Monitors
[2022-09-10 08:29] VITALS: BMI 34.0
[2022-09-10] MEDS: Bupivacaine 0.5% Pres-Free 30 ML VIAL (09:04)
--- NOTE | 2022-09-10 09:17 | AMP_PTH ---
PATIENT: Cristy Luo LOC: [facility] U#:[id number] AGE/SX: 37/F ROOM: RE09/10/[address]: Ester Gabriel : 1985 BED: DIS: 09/10/2022 SPEC #: [id number] RECD: 09/10/22 12:52 STATUS: SENTHIL RE #: [id number] CONOR: 09/10/22 09:[address]: Ester Gabriel DEPT: Surgical Specimen RECD BY: Staci Wilburn Tissues: 1 - AMPUTATION FINGERS/TOES(NOT TRAUMA) Procedures: GROSS AND MICRO LEVEL 4 DECALCIFICATION Comments: [id number]
[2022-09-10 09:45] VITALS: BP 116/86; PULSE 89; RESP 16; TEMP 36.2; O2SAT 98
--- NOTE | 2022-09-10 09:51 | W.PM.OP ---
Date of service: 09/10/22 Time of Service: 09:15 Operative Note Operative Note DATE OF PROCEDURE: 09/10/22 PRE-OP DIAGNOSIS: L 2nd digit osteomyelitis POST-OP DIAGNOSIS: same PROCEDURE: L 2nd digit amputation with disarticulation at the L 2nd MPJ SURGEON: Ester Gabriel ANESTHESIA TYPE: Local By Surgeon and MAC Refer to Anesthesia Record ESTIMATED BLOOD LOSS: 10 PATHOLOGY: other (L 2nd digit, bone L 2nd metatarsal head sent for microbiological evaluation) COMPLICATIONS: None Patient was transported to: PACU Patient's condition: stable Indications: L 2nd digit osteomyelitis Procedure Description: The patient was brought into the operating room and placed on the operating table in the supine position. Following induction of MAC anesthesia, a local anesthetic block was performed about the L 2nd ray using 10 cc of 0.5 % marcaine plain. The foot was scrubbed, prepped, draped using the usual aseptic manner. Attention was directed to the L 2nd digit where a tennis racquet incision was used, and continued deep to bone, to allow for disarticulation of what remains of the L 2nd digit (proximal phalanx), which was sent for pathological evaluation. The head of the 2nd metatarsal was assessed and noted to be viable, intact and without violation and signs of necrosis. The wound was irrigated with 2.5 L of sterile normal saline and bone ronguer was used to excise a small portion of bone from the dorsolateral L 2nd metatarsal head, and sent for microbiological evalution. The wound was closed using 3-0 vicryl for deep tissue and 3-0 and 4-0 nylon for skin. The wound was dressed with xeroform, DSD, and a well padded Dillon and the patient was transferred to the PACU with vital signs stable and vascular status intact to all remain digits to the left foot. She is to be discharged home with instructions to limit activity, elevate foot, keep dressings intact and follow up with myself next week (pt has appt).
--- NOTE | 2022-09-10 10:00 | W.ANESPOSTOP ---
Postoperative Evaluation Date, Time and Location Date Performed: 09/10/22 Time Performed: 10:00 Patient Location: Day Surgery Unit Vital Signs Most Recent Imported Vital Signs: Most Recent Vital Signs Temp Pulse Resp BP Pulse Ox 36.2 C L 89 16 116/86 98 09/10/22 09:45 09/10/22 09:45 09/10/22 09:45 09/10/22 09:45 09/10/22 09:45 Pain Score Most Recent Pain Score: Most Recent Pain Score Pain Level 0 09/10/22 09:45 Assessment Mental Status: Awake (Alert & Oriented to Patient Baseline) Airway and Respiratory Function: Patent airway with normal (patient baseline) respiratory exam Cardiovascular Function: Hemodynamically Stable Hydration Status: Adequately Hydrated Nausea & Vomiting: No Nausea or Vomiting Pain: Pt. Denies Any Pain Peripheral Nerve Block: Patient did not receive a nerve block
[2022-09-10 10:10] VITALS: BP 128/90; PULSE 83; RESP 18; TEMP 36.2; O2SAT 99
== END 2022-09-10 10:25 | disposition home or self-care (01) ==
PROVIDERS: Visit Provider Podiatrist Foot & Ankle Surgery
PROC: (CPT 28820; principal; 2022-09-10 08:15)
DX: E11.69 Type 2 diabetes mellitus with other specified complication (principal); M86.8X8 Other osteomyelitis, other site; Z79.4 Long term (current) use of insulin; E11.43 Type 2 diabetes mellitus with diabetic autonomic (poly)neuropathy; K31.84 Gastroparesis
CPT/HCPCS: 28820; 81025; 87077; 88300; 88305; 87070; 87075; 87186; 87205; 88311

== ENCOUNTER 2022-09-21 12:13 | Emergency (ER) | payer BC, MEDICAID, SELFPAY ==
[2022-09-21] VITALS (24 sets, daily range): BP systolic 94–158; BP diastolic 49–122; PULSE 71–131; RESP 11–30; TEMP 36.9; O2SAT 89–100
--- NOTE | 2022-09-21 12:15 | RT.EKG_ITS ---
APPROVED REPORT Exam: Resting ECG Reason for Exam: syncope Patient Location: E HR:104 bpm ECG Measurements Heart Rate 104 AXIS AZ 148 P 62 QRSd 90 QRS 14 QT 376 T 5 QTc 495 Conclusion Sinus arrhythmia...V-rate 92-114, variation>10% Atrial premature complex...SV complex w/ short R-R interval Sinus pause...long R-R interval, normal QRSd Note that pauses up to high 40's are new vs. 08/26/22
--- NOTE | 2022-09-21 12:26 | W.ED.GENAD ---
Discharge Plan Disposition Patient Disposition: Home Condition: Good Discharge Details Clinical Impression: Nausea and vomiting, Acute alteration in mental status Primary Care Provider: Unknown,Unknown ED Provider: Angélica Grajeda Home Meds and New Rx's Prescriptions: Continued gabapentin 300 mg Tablet 300 - 900 mg PO DIRECTED Rx Instructions: 300 qam 900 hs lorazepam 0.5 mg Tablet 0.5 mg PO DAILY insulin aspart U-100 [Novolog FlexPen U-100 Insulin] 100 unit/mL (3 mL) insulin pen 12 unit SUBCUT TID Patient Comments: INJECT 9 UNITS SUBCUTANEOUSLY THREE TIMES DAILY WITH MEALS insulin glargine [Lantus Solostar U-100 Insulin] 100 unit/mL (3 mL) insulin pen 40 unit SUBCUT HS Patient Comments: INJECT 40 UNITS SUBCUTANEOUSLY AT BEDTIME promethazine 25 mg tablet 25 mg PO TID PRN (Reason: nausea and vomiting) Qty: 7 0RF Patient Comments: not taking nystatin 100,000 unit/gram Cream 1 applic TOPICAL DAILY Patient Comments: not taking lidocaine [Lidoderm] 5 % adhesive patch,medicated 1 patch topical DIRECTED Patient Comments: PLACE 1 PATCH ONTO THE SKIN DAILY. PATCHE(S) MAY REMAIN IN PLACE FOR UP TO 12 HOURS IN ANY 24-HOUR PERIOD omeprazole 20 mg Capsule,Delayed Release(Dr/Ec) 20 mg PO DAILY Patient Comments: not taking nicotine 7 mg/24 hr patch 24 hour 1 patch topical DAILY Patient Comments: APPLY 1 PATCH DAILY TOPICALLY TO SKIN WITHOUT HAIR. APPLY TO A DIFFERENT SITE AT THE SAME TIME EACH DAY, AFTER COMPLETION OF 14MG PATCHES ondansetron 4 mg tablet,disintegrating 4 mg PO Q8H PRN (Reason: nausea and vomiting) metoclopramide HCl [Reglan] 10 mg tablet 10 mg PO HS PRN promethazine 25 mg suppository 25 mg FL ONCE PRN Rx Instructions: may repeat once in 12 hours (DME) Dexcom G6 Sensor Device See Rx Instructions .Route Qty: 6 0RF Rx Instructions: As directed Jardiance 10 mg Tablet 10 mg PO DAILY Qty: 30 0RF tramadol 50 mg Tablet 50 mg PO Q6H PRN PRNQty: 30 0RF Discharge Instructions Instructions: Acute Nausea and Vomiting (ED), Altered Mental Status (ED) Additional Instructions: Take your Zofran and/or Reglan as needed for nausea and vomiting. Check your fingerstick when you arrive home and also this evening. Clear fluids and bland diet increasing as tolerated. Return to ED for black or bloody stool, fever of 100.4 or above, belly pain localized to 1 area. Recheck with your primary care doctor this week. Stand Alone Forms: Work Release Discharge Data Discharge Date/Time-TO BE ENTERED AT DEPARTURE: 09/21/22 17:38 Medical Decision Making Patient received some IV insulin due to her elevated blood sugar and what I thought was an elevated specific gravity and urine ketones. The elevated specific gravity and urine ketones were from a August 26 UA. Her current UA is pending at this time. Repeat FS is in the 170's. Urine SG from today was identical to prior. Repeat FS after fluids and insulin 175. Suspect elevated WBC related to protracted vomiting. No fever or belly pain. Pt. completely non toxic appearinbg on d/c, taking po, ready to go home. given a work note; they both are under a ton of stress as both his parents are at [facility] and their child is at [facility]. Lab Data Lab results narrative: White blood cell count is 17.2 thousand with 84 polys and 11 lymphs. Platelet count is 427 which is up from normal baseline. Venous blood gas shows a pH of 7.43 with a PCO2 of 43 and bicarb of 28. Lactate is 2.1. 1330 AG is mildly elevated at 12.5 with glucose of 281. Remainder patient's labs are normal except EtOH, ASA, and acetaminophen which are pending. 1430: Salicylate, acetaminophen, and EtOH are all within normal limits. 1605: Urine specific gravity is greater than or equal to 1.030, urine ketones are greater than or equal to 160, and urine glucose is 500 on todays UA. 1625: Pt. is feeling much better and wants to try kirsten stan and crackers. She would like to go home and has Zofran and Reglan at home. She is speaking clearly and acting appropriately. ECG Data Attestation: I personally reviewed and interpreted this ECG (s) as follows: Interpretation: EKG: Sinus arrhythmia at 100 with pauses up to a rate of 50, new vs 08/26/22 HPI General Date/Time Provider Initiated Documentation: 09/21/22 12:22. HPI Narrative: This 37-year-old female patient with a history of gastroparesis presents with a chief complaint of vomiting and diarrhea that began last night. The states that this began on route home from [facility] after dropping her child off. She actually defecated herself in the car and he had to cut her clothes off when they got home. This continued throughout the night and she refused to come to the ED. This morning she finally agreed to come to the ED and on arrival the noticed altered mental status. Patient does shake her head yes or no when I ask her questions. She is at times acting bizarrely. She has had no fever or abdominal pain. She does admit to cramping. She does smoke marijuana and the states she does not have hyperemesis cannabinoid syndrome. She has had issues with dehydration in the past. Patient has not had URI symptoms or chest pain. There has been no difficulty breathing. She is not sure whether she is peeing properly or not. She is retching profusely in front of me. She is a poor historian. Patient is status post recent toe amputation and has a follow-up check tomorrow according to the . There have been no issues from this. Related Data Home Medications Medication Instructions Recorded Confirmed gabapentin 300 mg tablet 300 - 900 mg PO DIRECTED 01/24/21 09/21/22 lorazepam 0.5 mg tablet 0.5 mg PO DAILY 01/24/21 09/21/22 insulin aspart U-100 100 unit/mL 12 unit subcut TID 01/14/22 09/21/22 (3 mL) subcutaneous pen (Novolog FlexPen U-100 Insulin aspart) insulin glargine 100 unit/mL (3 40 unit subcut HS 01/14/22 09/21/22 mL) subcutaneous pen (Lantus Solostar U-100 Insulin) promethazine 25 mg tablet 25 mg PO TID PRN nausea and 02/06/22 09/21/22 vomiting #7 tabs blood-glucose sensor (Dexcom G6 #6 ea 05/03/22 09/13/22 Sensor device) lidocaine 5 % topical patch 1 patch topical DIRECTED 05/25/22 09/21/22 (Lidoderm) metoclopramide HCl 10 mg tablet 10 mg PO HS PRN 05/25/22 09/21/22 (Reglan) nicotine 7 mg/24 hr daily 1 patch topical DAILY 05/25/22 09/13/22 transdermal patch nystatin 100,000 unit/gram topical 1 applic topical DAILY 05/25/22 09/13/22 cream omeprazole 20 mg capsule,delayed 20 mg PO DAILY 05/25/22 09/21/22 release ondansetron 4 mg disintegrating 4 mg PO Q8H PRN nausea and vomiting 05/25/22 09/21/22 tablet promethazine 25 mg rectal 25 mg FL ONCE PRN 05/27/22 09/21/22 suppository empagliflozin 10 mg tablet 10 mg PO DAILY #30 tabs 08/28/22 09/21/22 (Jardiance) tramadol 50 mg tablet 50 mg PO Q6H PRN PRN #30 tabs 08/28/22 09/21/22 Previous Rx's Medication Instructions Recorded promethazine 25 mg tablet 25 mg PO TID PRN nausea and 02/06/22 vomiting #7 tabs blood-glucose sensor (SCRM G6 #6 ea 05/03/22 Sensor device) empagliflozin 10 mg tablet 10 mg PO DAILY #30 tabs 08/28/22 (Jardiance) tramadol 50 mg tablet 50 mg PO Q6H PRN PRN #30 tabs 08/28/22 Allergies Allergy/AdvReac Type Severity Reaction Status Date / Time ibuprofen [From Advil] Allergy Severe throat Verified 09/21/22 13:01 closes pomegranate Allergy Severe Anaphylaxis Verified 09/21/22 13:01 citalopram AdvReac Severe Bodily harm Verified 09/21/22 13:01 General Stated Complaint: Nausea/Vomit/Diar ARNOLD: 3 Review of Systems Constitutional Constitutional: Denies chills, Denies fever(s), Denies headache(s) and Denies weakness Eyes Eyes: Denies diplopia and Reports other (no redness) ENT Ears, Nose, Mouth, and Throat: Denies otalgia, Denies headache(s), Denies nasal congestion, Denies nasal discharge, Denies neck pain and Denies sore throat Cardiovascular Cardiovascular: Denies chest pain, Denies palpitations and Denies dyspnea Respiratory Respiratory: Denies cough and Denies dyspnea Gastrointestinal Gastrointestinal: Denies abdominal pain, Denies diarrhea, Denies nausea and Denies vomiting Genitourinary Genitourinary: Denies dysuria Musculoskeletal Musculoskeletal: Denies myalgias, Denies muscle weakness, Denies neck pain, Denies numbness and Reports other (edema) Integumentary/Breasts Skin/Breast: Denies change in pigmentation and Denies rash Neurologic Neurologic: Reports behavioral changes, Denies headache(s), Denies numbness and Denies weakness Psychiatric Psychiatric: Reports behavioral changes Comments: non verbal but shakes head yes and no, bizarre acting Endocrine Endocrine: Denies palpitations PFSH All Active Problems (Updated 09/21/22 @ 16:57 by Angélica Grajeda MD) Acute alteration in mental status (Acute) Calf pain (Acute) Cellulitis of foot (Acute) Diabetic toe ulcer (Acute) Abscess (Acute) Vomiting (Acute) Gastroparesis (Chronic) Vomiting (Acute) Acute dehydration (Acute) Nausea and vomiting (Acute) IDDM (insulin dependent diabetes mellitus) (Chronic) Tobacco abuse (Acute) Cannabinoid hyperemesis syndrome (Acute) Upper GI bleeding (Acute) UTI (urinary tract infection) (Acute) Hypokalemia (Acute) Type 2 diabetes mellitus (Chronic) Type 2 diabetes mellitus with diabetic neuropathy (Chronic) Ulcer of other part of foot (Acute) Amputation of toe of left foot (Acute) Infection of toe (Acute) Osteomyelitis (Acute) Medical History Anxiety and depression Back pain Cellulitis of third toe, left Chest pain r/t Anxiety Diabetes Type 1, per patient she said she was told she had diabetes type 2. Diabetic neuropathy History of cellulitis toe History of kidney stones History of osteomyelitis IBS (irritable bowel syndrome) Peripheral neuropathy Suicide attempt Surgical History Amputation of left great toe H/O tubal ligation History of amputation 2nd toe left foot Family History Paternal Grandmother Heart disease Diabetes Maternal Aunt Hypertension Breast cancer maternal great aunt Maternal Grandfather Hypertension Maternal Grandmother Breast cancer Maternal Aunt No problems noted. Maternal Cousin Breast cancer Maternal Cousin Breast cancer Maternal Cousin Breast cancer Social History Smoking/Tobacco Use Status: Current every day Tobacco Type: cigarettes Smoking risk assessment performed?: Yes Alcohol Intake: current Alcohol Intake frequency: holidays/special occasions only Drug use: Daily Substance use type: marijuana Do you feel safe at home: Yes Do you feel safe in your relationship?: Yes Exam Const General: no acute distress, well developed and well groomed Nutritional Appearance: well nourished Orientation: alert and awake Other: Will not answer my questions but follows commands and shakes her head yes and no HENMT Head: normocephalic and atraumatic Ears: external ears normal Mouth: oropharynx normal and moist mucous membranes Throat: posterior oropharynx normal Eyes Conjunctivae: conjunctivae normal Neck Neck: full ROM and supple Chest Chest: normal inspection of the chest Resp Effort & Inspection: normal respiratory effort Auscultation: clear to auscultation bilaterally Cardio Rate: regular rate Rhythm: regular rhythm Heart Sounds: no murmurs and no rubs GI Inspection: normal to inspection Palpation: soft, nontender and other (non distended) Auscultation: normal bowel sounds Skin General skin exam: no rashes or lesions noted and other (pink, warm, dry) Neuro General: patient alert, patient awake and patient oriented x3 Cranial Nerves: CN's II-XI intact bilaterally (performed after pt. more appropriate) Speech: speech normal Gait: normal gait (on d/c) Motor: other (MA) Sensory Exam: no sensory deficits noted Pupils: Normal pupillary reactivity/response: bilateral and Mid position: bilateral Extrem General: normal to inspection, full ROM, pedal edema present and other (Left foot with Dillon dressing and splint on status post recent toe amputation) Psych Mental Status: mental status grossly normal Speech and Movement: speech and movement normal Affect: normal affect Course Vital Signs Vital signs: Vital Signs Temperature 36.9 C 09/21/22 12:18 Pulse 97 H 09/21/22 12:18 Respiratory Rate 18 09/21/22 12:18 Blood Pressure 135/82 09/21/22 12:18 Pulse Oximetry 98 09/21/22 12:18 Temperature 36.9 C 09/21/22 12:18 Temperature Source Temporal Artery Scan 09/21/22 12:18 Pulse 97 H 09/21/22 12:18 Respiratory Rate 18 09/21/22 12:18 Blood Pressure 135/82 09/21/22 12:18 Blood Pressure Position Supine 09/21/22 12:18 Pulse Oximetry 98 09/21/22 12:18 Oxygen Delivery Method Room Air 09/21/22 12:18 Oxygen Flow Rate 0 09/21/22 12:18 Pain Level 0 09/21/22 12:18
[2022-09-21 12:42] LABS: Abs Immature Grans 0.08 10^3/uL (0.0-0.06); Absolute Basophil Count 0.05 10^3/uL (0.0-0.2); Absolute Monocyte Count 0.71 10^3/uL (0.1-0.8); Absolute Neutrophil Count 14.48 10^3/uL (1.2-6.7); BE (Venous) 4 mmol/L (-2-3); Basophils % 0.3; HCO3 (Venous) 28 mmol/L (23-28); HCT 44.6 % (36.0-46.0); HGB 15.6 g/dL (11.2-15.7); Immature Grans % 0.5; MCH 31.2 pg (27.0-33.0); MCV 89 fL (80-95); MPV 9.4 fL (8.0-11.0); Monocytes % 4.1; Neutrophils % 84.1; O2 Sat (Venous) 87 %; Platelet Count 427 10^3/uL (130-400); RDW-SD 42.5 fL; TCO2 (Venous) 25 mmol/L (24-29); WBC 17.22 10^3/uL (4.4-10.8); pCO2 (Venous) 43 mmHg (41-51); pH (Venous) 7.43 (7.31-7.41); pO2 (Venous) 50 mmHg
[2022-09-21 12:44] LABS: Absolute Lymphocyte Count 1.89 10^3/uL (1.2-3.4); Lactate 2.1 mmol/L (0.6-1.4)
[2022-09-21] MEDS: Ondansetron 4 MG/2 ML VIAL (12:50)
[2022-09-21] MEDS: Normal Saline 1,000 ML 1000 ML IV ×2 (12:56→14:02)
[2022-09-21 13:02] LABS: ALT 28 U/L (14-59); AST 20 U/L (15-37); Albumin 4.1 g/dL (3.4-5.0); Alkaline Phosphatase 114 U/L (46-116); Anion Gap 12.5 mmol/L (3-11); BUN 13 mg/dL (7-18); Bilirubin, Total 0.4 mg/dL (0.2-1.0); CO2 27.5 mmol/L (21.0-32.0); CREATININE 0.8 mg/dL (0.55-1.02); Calcium 10.1 mg/dL (8.5-10.1); Chloride 98 mmol/L (98-107); Estimated GFR 97.26 (mL/min/1.73m2); Glucose 281 mg/dL (74-106); Magnesium 1.9 mg/dL (1.8-2.4); Potassium 3.7 mmol/L (3.5-5.1); Sodium 138 mmol/L (136-145); Troponin I < 50 ng/L (<or=60)
[2022-09-21 13:03] LABS: ETHANOL BLOOD < 3.0 mg/dL (<10)
[2022-09-21 13:18] LABS: Salicylate 2.8 mg/dL (<2.8)
[2022-09-21 13:20] LABS: Acetaminophen < 2 ug/mL (10-30)
[2022-09-21] MEDS: LORazepam 2 MG/ML VIAL 0.5 MG IVP (13:42)
[2022-09-21] MEDS: Insulin REGULAR-Human 100 UNITS/ML UNIT 8 UNITS IV (13:58)
[2022-09-21 14:31] LABS: Source Nasal/Nares
--- NOTE | 2022-09-21 14:45 | DI.RAD_ITS ---
Exam(s) XR PORTABLE CHEST AP EXAM: XR PORTABLE CHEST AP CLINICAL HISTORY: AMS TECHNIQUE: 2D digital imaging was performed of the chest. One image was obtained. An AP view was ob tained. COMPARISON: CR XR CHEST 2V PA LATERAL from 08/26/2022 FINDINGS: MEDIASTINUM: Normal. HEART: Normal. PULMONARY VASCULATURE: Normal. LUNGS: Clear. PLEURAL SPACE: No pleural effusion or pneumothorax. BONE:Within normal limits for the patient's age. OTHER FINDINGS:Normal. IMPRESSION: No acute pulmonary findings. DATA REPOSITORY: RADIATION DOSE DELIVERED:
--- NOTE | 2022-09-21 15:19 | NUR.NOTE ---
Nursing Note: Report received from Yassine Real
[2022-09-21 15:20] LABS: COVID-19 PCR Negative (Negative)
[2022-09-21 15:34] LABS: *AMPHETAMINES SCREEN URINE Negative (Negative); *BARBITURATES SCREEN URINE Negative (Negative); *BENZODIAZEPINES SCREEN URINE Negative (Negative); Cannabinoids THC Positive (Negative); Cocaine Screen,Urine Negative (Negative); METHADONE URINE SCREEN Negative (Negative); OPIATES URINE SCREEN Negative (Negative)
[2022-09-21 15:35] LABS: Tricyclic Antidepressants Negative (Negative)
[2022-09-21 15:37] LABS: Bilirubin Negative (Negative); Blood Negative (Negative); Clarity Clear (Clear); Glucose 500 mg/dL (Negative); Ketones >=160 mg/dL (Negative); Leukocyte Esterase Negative (Negative); Nitrite Negative (Negative); Specific Gravity >= 1.030 (1.005-1.025); Urobilinogen 0.2 mg/dL (Up to 0.2)
== END 2022-09-21 17:38 | disposition home or self-care (01) ==
PROVIDERS: Emergency Provider Emergency Medicine
DX: R11.2 Nausea with vomiting, unspecified (principal); R41.82 Altered mental status, unspecified; R60.0 Localized edema; E10.65 Type 1 diabetes mellitus with hyperglycemia; E10.42 Type 1 diabetes mellitus with diabetic polyneuropathy; Z79.4 Long term (current) use of insulin; Z20.822 Contact with and (suspected) exposure to COVID-19
CPT/HCPCS: 36415; 36416; 80053; 80307; 81025; 82805; 82962; 87635; 93005; 96361; 96374; 96375; 99284; 71045; 80320; 80329; 81003; 83605; 83735; 84484; 85025; 93010; J2060; J2405

== ENCOUNTER 2022-10-01 09:12 | Emergency (ER) | payer BC, MEDICAID, SELFPAY ==
[2022-10-01] VITALS (30 sets, daily range): BP systolic 119–169; BP diastolic 78–134; PULSE 116–134; RESP 0–26; TEMP 36.8–37.4; O2SAT 98–100
--- NOTE | 2022-10-01 09:15 | RT.EKG_ITS ---
APPROVED REPORT Exam: Resting ECG Reason for Exam: syncope Patient Location: E HR:123 bpm ECG Measurements Heart Rate 123 AXIS NC 145 P 61 QRSd 80 QRS 11 QT 309 T 7 QTc 442 Conclusion Sinus tachycardia...rate> 99 Probable left atrial enlargement...P >50mS, <-0.10mV V1 Narrow complex sinus tachycardia at a rate of 123. Normal axis. Intervals within normal limits. T wave flattening in aVF. No ST segment abnormalities. No acute injury pattern. Appears similar to alvarado burris dated earlier this month.
--- NOTE | 2022-10-01 09:30 | DI.RAD_ITS ---
Exam(s) XR PORTABLE CHEST AP EXAM: XR PORTABLE CHEST AP CLINICAL HISTORY: Chest pain TECHNIQUE: 2D digital imaging was performed. COMPARISON: CR XR PORTABLE CHEST AP from 09/21/2022 FINDINGS: LUNGS: Clear. No pleural abnormality seen. HEART: Normal size. AORTA: Normal diameter. BONES: Unremarkable for age. Soft tissues: Unremarkable. IMPRESSION: No acute findings. DATA REPOSITORY: RADIATION DOSE DELIVERED:
--- NOTE | 2022-10-01 09:32 | ED.GENADUL_ITS ---
Discharge Plan Disposition Patient Disposition: Home Discharge Details Clinical Impression: Nausea and vomiting, Chest pain, unspecified, Sinus tachycardia Primary Care Provider: Unknown,Unknown ED Provider: Fermin Lyons Home Meds and New Rx's Prescriptions: Continued gabapentin 300 mg Tablet 300 - 900 mg PO DIRECTED Rx Instructions: 300 qam 900 hs lorazepam 0.5 mg Tablet 0.5 mg PO DAILY insulin aspart U-100 [Novolog FlexPen U-100 Insulin] 100 unit/mL (3 mL) insulin pen 12 unit SUBCUT TID Patient Comments: INJECT 9 UNITS SUBCUTANEOUSLY THREE TIMES DAILY WITH MEALS insulin glargine [Lantus Solostar U-100 Insulin] 100 unit/mL (3 mL) insulin pe n 40 unit SUBCUT HS Patient Comments: INJECT 40 UNITS SUBCUTANEOUSLY AT BEDTIME promethazine 25 mg tablet 25 mg PO TID PRN (Reason: nausea and vomiting) Qty: 7 0RF Patient Comments: not taking nystatin 100,000 unit/gram Cream 1 applic TOPICAL DAILY Patient Comments: not taking lidocaine [Lidoderm] 5 % adhesive patch,medicated 1 patch topical DIRECTED Patient Comments: PLACE 1 PATCH ONTO THE SKIN DAILY. PATCHE(S) MAY REMAIN IN PLACE FOR UP TO 12 HOURS IN ANY 24-HOUR PERIOD omeprazole 20 mg Capsule,Delayed Release(Dr/Ec) 20 mg PO DAILY Patient Comments: not taking nicotine 7 mg/24 hr patch 24 hour 1 patch topical DAILY Patient Comments: APPLY 1 PATCH DAILY TOPICALLY TO SKIN WITHOUT HAIR. APPLY TO A DIFFERENT SITE AT THE SAME TIME EACH DAY, AFTER COMPLETION OF 14MG PATCHES ondansetron 4 mg tablet,disintegrating 4 mg PO Q8H PRN (Reason: nausea and vomiting) metoclopramide HCl [Reglan] 10 mg tablet 10 mg PO HS PRN promethazine 25 mg suppository 25 mg MA ONCE PRN Rx Instructions: may repeat once in 12 hours (DME) Dexcom G6 Sensor Device See Rx Instructions .Route Qty: 6 0RF Rx Instructions: As directed Jardiance 10 mg Tablet 10 mg PO DAILY Qty: 30 0RF tramadol 50 mg Tablet 50 mg PO Q6H PRN PRNQty: 30 0RF Discharge Instructions Instructions: Acute Nausea and Vomiting (ED) Additional Instructions: Please read all of the information that accompanies these instructions. You were seen in the emergency department for your chest pain. Your blood work showed no sign of heart attack. Please schedule an appointment with your primary care provider next week. Please return to the emergency department if h ave difficulty breathing or chest pain worsens or if you have any other concerns. Medical Decision Making This is a hypertensive and tachycardic but normothermic 37-year-old diabetic with history of gastroparesis and cannabinoid hyperemesis syndrome now with chest pain. Her ECG is nonischemic and given the duration of time since her symptoms began we will be reassured if she has a single negative troponin. There is no tearing quality to the patient's pain to suggest aortic dissection. No rash to chest to suggest zoster. Clear lungs bilaterally so I not concerned for pneumothorax. Furthermore patient has no reported trauma making pneumothorax less likely. Patient has no crepitance so doubt esophageal rupture. Patient is not a dialysis patient nor she is hypotensive to suggest tamponade. No fevers nor cough to suggest pneumonia. Patient did have some hyperglycemia yesterday so we will obtain a venous blood gas to assess for DKA. Will attempt treatment with droperidol, lorazepam, famotidine, and NS bolus. Will obtain chest x-ray to assess for any esophageal abnormalities or abnormalities in the mediastinum. 10 AM CBC showing significant leukocytosis and thrombocytosis but no anemia. Patient did have both leukocytosis and thrombocytosis similar to prior. Venous blood gas without acidemia nor hypercarbia. 10:38 AM Negative troponin. Basic metabolic panel with no anion gap nor any SEAMUS. Mild hyperglycemia but not consistent with DKA given no anion gap. Serum negative. 11:15 AM Patient had had no further emesis in the ED. She requested Mylanta and viscous lidocaine. She still tacky into the low 120s so we will repeat a fluid bolus. She will also begin a p.o. challenge with liquids. 1 PM Patient felt markedly improved in the ED. She was persistently tachycardic in the ED. Her tachycardia was similar to prior episodes of tachycardia. She reports that she is generally tachycardic so I did not give her a third liter of IV fluids as I felt that the risk of iatrogenic harm is greater than the benefit. She is not on a beta-heather. Nor is she on any stimulants. There is certainly possible that her tobacco use and her marijuana use have resulted in her tachycardia. Given that she felt improved I felt that empiric trial of discharge with outpatient expectant management was warranted. I gave patient return indications including any worsening pain, inability to tolerate p.o., or any recurrent nausea or vomiting or fevers. She understood her return indications and I advised PMD follow-up as needed next week. HEART SCORE Chest pain Diagnostic Protocol: - [History/Physical/Gestalt: Slightly Suspicious (0)] - [EKG: Normal and/or unchanged from prior EKG (0)] - [AGE: less than 45 (0)] - [RISK FACTORS: No known risk factors (0)] - [TROPONIN: <= normal limit (0)] - TOTAL SCORE: 0 - Risk Factors: DM, current or recent smoker, HTN, HLD, family hx of CAD, obesity - INTERPRETATION: With a total score of 3 or less, risk of major cardiac event within six weeks 1.7%, likely lower with two negative troponins. [I explained to the patient that the risk of subsequent major cardiac event within 1 month is not 0, however risk predicted to be less than 2%. Patient verbalized understanding, accepts this risk and shared and the decision for discharge with PCP follow-up for further evaluation and management. They understand to return to the ED immediately with any worsening symptoms, new symptoms or other concerns.] Chronic conditions affecting the care of the patient: Gastroparesis diabetes and cannabinoid hyperemesis History obtained from an outside historian: Patient's mother External record review: N/A Diagnostic interpretations performed by me: [Per my independent interpretation chest x-ray shows:] Clear lungs bilaterally. [Per my independent interpretation EKG shows:] Narrow complex sinus tachycardia at a rate of 123. Normal axis. Intervals within normal limits. T wave flattening in aVF. No ST segment abnormalities. No acute injury pattern. Appears similar to prior dated earlier this month. Medications: droperidol, lorazepam, famotidine Social determinants of health affecting disposition: N/A Management discussed with: N/A Treatment/interventions considered: Hospitalization however the patient felt improved Response to therapies provided: [place] improved following treatment in the ED HPI General Date/Time Provider Initiated Documentation: 10/01/22 09:32 . HPI Narrative: This is a 37-year-old female with a history of diabetes gastroparesis and cannabinoid hyperemesis syndrome arriving to the emergency department via private vehicle in the setting of nausea and vomiting. Patient reports that she has been vomiting since last night. She also reports that she has a burning central chest pain which feels similar to prior episodes of acid reflux which have responded well to viscous lidocaine. She has a history of diabetes but denies hyperlipidemia and hypertension. She denies personal history or family history of coronary artery disease. She has not had any cough nor fevers. She is not having any abdominal pain but she has been nauseous and vomiting. She has not taken any falls. She denies dysuria and frequency. She denies rash to her chest. Chest pain occasionally radiates up into her jaw. Related Data Home Medications Medication Instructions Recorded Confirmed gabapentin 300 mg tablet 300 - 900 mg PO DIRECTED 01/24/21 10/01/22 lorazepam 0.5 mg tablet 0.5 mg PO DAILY 01/24/21 10/01/22 insulin aspart U-100 100 unit/mL 12 unit subcut TID 01/14/22 10/01/22 (3 mL) subcutaneous pen (Novolog FlexPen U-100 Insulin aspart) insulin glargine 100 unit/mL (3 40 unit subcut HS 01/14/22 10/01/22 mL) subcutaneous pen (Lantus Solostar U-100 Insulin) promethazine 25 mg tablet 25 mg PO TID PRN nausea and 02/06/22 10/01/22 vomiting #7 tabs blood-glucose sensor (Dexcom G6 #6 ea 05/03/22 10/01/22 Sensor device) lidocaine 5 % topical patch 1 patch topical DIRECTED 05/25/22 10/01/22 (Lidoderm) metoclopramide HCl 10 mg tablet 10 mg PO HS PRN 05/25/22 10/01/22 (Reglan) nicotine 7 mg/24 hr daily 1 patch topical DAILY 05/25/22 10/01/22 transdermal patch nystatin 100,000 unit/gram topical 1 applic topical DAILY 05/25/22 10/01/22 cream omeprazole 20 mg capsule,delayed 20 mg PO DAILY 05/25/22 10/01/22 release ondansetron 4 mg disintegrating 4 mg PO Q8H PRN nausea and vomiting 05/25/22 10/01/22 tablet promethazine 25 mg rectal 25 mg MA ONCE PRN 05/27/22 10/01/22 suppository empagliflozin 10 mg tablet 10 mg PO DAILY #30 tabs 08/28/22 10/01/22 (Jardiance) tramadol 50 mg tablet 50 mg PO Q6H PRN PRN #30 tabs 08/28/22 10/01/22 Previous Rx's Medication Instructions Recorded promethazine 25 mg tablet 25 mg PO TID PRN nausea and 02/06/22 vomiting #7 tabs blood-glucose sensor (Dexcom G6 #6 ea 05/03/22 Sensor device) empagliflozin 10 mg tablet 10 mg PO DAILY #30 tabs 08/28/22 (Jardiance) tramadol 50 mg tablet 50 mg PO Q6H PRN PRN #30 tabs 08/28/22 Allergies Allergy/AdvReac Type Severity Reaction Status Date / Time ibuprofen [From Advil] Allergy Severe throat Verified 10/01/22 09:49 closes pomegranate Allergy Severe Anaphylaxis Verified 10/01/22 09:49 citalopram AdvReac Severe Bodily harm Verified 10/01/22 09:49 General ARNOLD: 3 PFSH All Active Problems (Updated 10/01/22 @ 13:01 by Fermin Lyons MD) Acute alteration in mental status (Acute) Nausea and vomiting (Acute) Chest pain, unspecified (Acute) Sinus tachycardia (Acute) Calf pain (Acute) Cellulitis of foot (Acute) Diabetic toe ulcer (Acute) Abscess (Acute) Vomiting (Acute) Gastroparesis (Chronic) Vomiting (Acute) Acute dehydration (Acute) Nausea and vomiting (Acute) IDDM (insulin dependent diabetes mellitus) (Chronic) Tobacco abuse (Acute) Cannabinoid hyperemesis syndrome (Acute) Upper GI bleeding (Acute) UTI (urinary tract infection) (Acute) Hypokalemia (Acute) Type 2 diabetes mellitus (Chronic) Type 2 diabetes mellitus with diabetic neuropathy (Chronic) Ulcer of other part of foot (Acute) Amputation of toe of left foot (Acute) Infection of toe (Acute) Osteomyelitis (Acute) Medical History Anxiety and depression Back pain Cellulitis of third toe, left Chest pain r/t Anxiety Diabetes Type 1, per patient she said she was told she had diabetes type 2. Diabetic neuropathy History of cellulitis toe History of kidney stones History of osteomyelitis IBS (irritable bowel syndrome) Peripheral neuropathy Suicide attempt Surgical History Amputation of left great toe H/O tubal ligation History of amputation 2nd toe left foot Family History Paternal Grandmother Heart disease Diabetes Maternal Aunt Hypertension Breast cancer maternal great aunt Maternal Grandfather Hypertension Maternal Grandmother Breast cancer Maternal Aunt No problems noted. Maternal Cousin Breast cancer Maternal Cousin Breast cancer Maternal Cousin Breast cancer Social History Smoking/Tobacco Use Status: Current every day Tobacco Type: cigarettes Smoking risk assessment performed?: Yes Alcohol Intake: current Alcohol Intake frequency: holidays/special occasions only Drug use: Daily Substance use type: marijuana Details: last marijuana was last week Do you feel safe at home: Yes Do you feel safe in your relationship?: Yes Exam Narrative Exam Narrative: General: Uncomfortable-appearing in no acute distress speaking in complete sentences. Actively retching. Head: Normocephalic, atraumatic. Eye: Pupils equal, round reactive to light. Extraocular eye movements intact. No conjunctival injection. No scleral icterus. Ear, nose, mouth, throat: Grossly normal inspection. Normal voice, handling secretions normally. Neck: Trachea midline. Cardiovascular: Well-perfused distal extremities. Rapid regular rate. Respiratory: Nonlabored respiration. Clear lungs bilaterally. Gastrointestinal: distended abdomen. Soft. Nontender. Musculoskeletal: No edema. Moving all 4 extremities spontaneously. Skin: Normal for age and race, grossly normal temperature and turgor. No acute rash. Neurologic: Alert and appropriate, no apparent acute deficits. Psychiatric: Mood and manner are appropriate. Grooming and personal hygiene are appropriate.
[2022-10-01 09:57] LABS: BE (Venous) 5 mmol/L (-2-3); HCO3 (Venous) 29 mmol/L (23-28); O2 Sat (Venous) 83 %; TCO2 (Venous) 25 mmol/L (24-29); pCO2 (Venous) 43 mmHg (41-51); pH (Venous) 7.44 (7.31-7.41); pO2 (Venous) 43 mmHg
[2022-10-01 10:00] LABS: Abs Immature Grans 0.12 10^3/uL (0.0-0.06); Absolute Basophil Count 0.04 10^3/uL (0.0-0.2); Absolute Lymphocyte Count 1.89 10^3/uL (1.2-3.4); Absolute Monocyte Count 0.63 10^3/uL (0.1-0.8); Absolute Neutrophil Count 19.81 10^3/uL (1.2-6.7); Basophils % 0.2; HCT 44.1 % (36.0-46.0); HGB 15.2 g/dL (11.2-15.7); Immature Grans % 0.5; Lymphocytes % 8.4; MCH 30.8 pg (27.0-33.0); MCHC 34.5 % (32.0-36.0); MCV 90 fL (80-95); MPV 9.2 fL (8.0-11.0); Monocytes % 2.8; Neutrophils % 88.1; Platelet Count 500 10^3/uL (130-400); RBC 4.93 10^6/uL (3.93-5.22); RDW 12.8 % (11.7-14.6); RDW-SD 42.1 fL; WBC 22.49 10^3/uL (4.4-10.8)
[2022-10-01] MEDS: LORazepam 2 MG/ML VIAL 0.5 MG IVP (10:07)
[2022-10-01] MEDS: Droperidol 5 MG/2 ML VIAL 1.25 MG IVP (10:07)
[2022-10-01] MEDS: Famotidine 20 MG/2 ML VIAL 40 MG IVP (10:07)
[2022-10-01] MEDS: Normal Saline 1,000 ML 1000 ML IV ×2 (10:08→11:15)
[2022-10-01 10:18] LABS: Anion Gap 8.9 mmol/L (3-11); BUN 11 mg/dL (7-18); CO2 29.1 mmol/L (21.0-32.0); CREATININE 0.8 mg/dL (0.55-1.02); Calcium 9.8 mg/dL (8.5-10.1); Chloride 97 mmol/L (98-107); Estimated GFR 97.26 (mL/min/1.73m2); Glucose 260 mg/dL (74-106); Potassium 3.6 mmol/L (3.5-5.1); Sodium 135 mmol/L (136-145); Troponin I < 50 ng/L (<or=60)
[2022-10-01 10:22] LABS: HCG Qual (Serum) Negative
[2022-10-01] MEDS: Lidocaine 2% Viscous 15 ML CUP PO (10:26)
== END 2022-10-01 13:01 | disposition home or self-care (01) ==
PROVIDERS: Emergency Provider Emergency Medicine
DX: R11.2 Nausea with vomiting, unspecified (principal); R07.9 Chest pain, unspecified; R00.0 Tachycardia, unspecified; E10.65 Type 1 diabetes mellitus with hyperglycemia; E10.43 Type 1 diabetes mellitus with diabetic autonomic (poly)neuropathy; E10.40 Type 1 diabetes mellitus with diabetic neuropathy, unspecified; K31.84 Gastroparesis; D72.829 Elevated white blood cell count, unspecified; D75.839 Thrombocytosis, unspecified; Z79.4 Long term (current) use of insulin
CPT/HCPCS: 36415; 80048; 82805; 93005; 96361; 96374; 96375; 99284; 71045; 84484; 84703; 85025; 93010; J1790; J2060

== ENCOUNTER 2022-10-03 00:22 | Emergency (ER) | payer BC, MEDICAID, SELFPAY ==
[2022-10-03] VITALS (8 sets, daily range): BP systolic 132–156; BP diastolic 83–87; PULSE 108–123; RESP 10–22; TEMP 36.7; O2SAT 99–100
--- NOTE | 2022-10-03 00:28 | W.ED.GENAD ---
Discharge Plan Disposition Patient Disposition: Home Condition: Improving Discharge Details Clinical Impression: Chronic vomiting, Right upper quadrant abdominal pain Primary Care Provider: Unknown,Unknown ED Provider: Irene Madden Home Meds and New Rx's Prescriptions: New promethazine 25 mg suppository 25 mg LA Q6H PRN (Reason: nausea and vomiting) Qty: 12 0RF sucralfate [Carafate] 1 gram tablet 1 gm PO QACHS Qty: 14 0RF Continued gabapentin 300 mg Tablet 300 - 900 mg PO DIRECTED Rx Instructions: 300 qam 900 hs lorazepam 0.5 mg Tablet 0.5 mg PO DAILY insulin aspart U-100 [Novolog FlexPen U-100 Insulin] 100 unit/mL (3 mL) insulin pen 12 unit SUBCUT TID Patient Comments: INJECT 9 UNITS SUBCUTANEOUSLY THREE TIMES DAILY WITH MEALS insulin glargine [Lantus Solostar U-100 Insulin] 100 unit/mL (3 mL) insulin pen 40 unit SUBCUT HS Patient Comments: INJECT 40 UNITS SUBCUTANEOUSLY AT BEDTIME promethazine 25 mg tablet 25 mg PO TID PRN (Reason: nausea and vomiting) Qty: 7 0RF Patient Comments: not taking nystatin 100,000 unit/gram Cream 1 applic TOPICAL DAILY Patient Comments: not taking lidocaine [Lidoderm] 5 % adhesive patch,medicated 1 patch topical DIRECTED Patient Comments: PLACE 1 PATCH ONTO THE SKIN DAILY. PATCHE(S) MAY REMAIN IN PLACE FOR UP TO 12 HOURS IN ANY 24-HOUR PERIOD omeprazole 20 mg Capsule,Delayed Release(Dr/Ec) 20 mg PO DAILY Patient Comments: not taking nicotine 7 mg/24 hr patch 24 hour 1 patch topical DAILY Patient Comments: APPLY 1 PATCH DAILY TOPICALLY TO SKIN WITHOUT HAIR. APPLY TO A DIFFERENT SITE AT THE SAME TIME EACH DAY, AFTER COMPLETION OF 14MG PATCHES ondansetron 4 mg tablet,disintegrating 4 mg PO Q8H PRN (Reason: nausea and vomiting) metoclopramide HCl [Reglan] 10 mg tablet 10 mg PO HS PRN promethazine 25 mg suppository 25 mg LA ONCE PRN Rx Instructions: may repeat once in 12 hours (DME) Dexcom G6 Sensor Device See Rx Instructions .Route Qty: 6 0RF Rx Instructions: As directed Jardiance 10 mg Tablet 10 mg PO DAILY Qty: 30 0RF tramadol 50 mg Tablet 50 mg PO Q6H PRN PRNQty: 30 0RF Discharge Instructions Instructions: Acute Nausea and Vomiting (ED), Abdominal Pain (ED) Additional Instructions: Your blood tests today are reassuring and show no evidence of acute concerning or significant findings. Your CT scan today showed that you have thickening of the lower portion of your esophagus which may be from inflammation called esophagitis in addition to inflammation in your small bowel wall called enteritis. These can be reactive in the setting of nausea and vomiting or secondary to a viral process. Drink plenty of fluids and get plenty of rest. Take Tylenol as needed and directed for pain. A prescription for Phenergan suppository for nausea and vomiting and Carafate for your abdominal pain have been sent electronically to your pharmacy to take as directed. Call your chart clerk at [facility] on Tuesday morning to schedule a follow-up appointment for reevaluation. An order for an outpatient gallbladder ultrasound has been placed. You will be contacted by the radiology department for scheduling of this test. Return immediately to the emergency department if you develop any worsening or new concerning symptoms. Discharge Data Discharge Date/Time-TO BE ENTERED AT DEPARTURE: 10/03/22 04:04 Discharge Physician: Irene Madden Medical Decision Making 37-year-old female with a history of obesity, type 2 diabetes, diabetic gastroparesis, cannabinoid hyperemesis syndrome, tubal ligation who presents for nausea and vomiting for the past 2 weeks with right upper quadrant abdominal pain today. Review of records notes that this is patient's fourth visit to the ED in the last month with a complaint of vomiting. She was admitted late last month for vomiting and a left second toe infection and diagnosed with osteomyelitis and treated with IV antibiotics resulting in eventual left 2nd top amputation by Dr. Gabriel on 09/10/22. Patient had been taking antibiotics into the second week of this month. Her heart rate is tachycardic into the 110s. EKG notes a rate of 113, sinus, normal axis and intervals, no acute ischemic findings. Patient initially would not provide history to nursing and would not speak. She is able to answer questions to me but is speaking in a low voice and speaking slowly. She is oriented x3. She answers questions appropriately. Her abdomen is soft, obese, tender in the right upper quadrant. She has no rebound, rigidity or guarding. She has no tearing or ripping sensation, pulsatile mass and has reassuring vital signs so as not to suggest dissection or ruptured aneurysm. Differential diagnosis includes biliary colic, cholecystitis, gastroenteritis, UTI, electrolyte abnormality, dehydration. Review of records notes that her last 2 visits she has had 2 negative chest x-rays. With her right upper quadrant tenderness, will obtain screening labs, CT chest abdomen and pelvis and give IV Tylenol, IV Reglan, IV Ativan and reassess. Urine test negative. Labs and imaging reviewed. White blood cell count 18, this is downtrending from her recent visit with 22. Glucose 302 with normal bicarb and anion gap and normal pH on VBG. Urinalysis notes ketones but no evidence of infection. FLUVID negative. CT chest notes IMPRESSION: 1. ? There is thickening of the distal esophagus consider esophagitis. 2. ? There are diffuse interstitial infiltrates present. This may represent cardiogenic versus noncardiogenic edema. An acute inflammatory process and/or infectious process/pneumonia are not excluded. 3. ? There is no evidence of filling defects within the pulmonary arterial circulation to suggest pulmonary embolism. 4. ? There is heterogeneous attenuation of the pulmonary parenchyma, consistent with air trapping from underlying small airways disease. CT abdomen/pelvis notes: IMPRESSION: Findings are consistent with acute enteritis. She has no fever, hypoxia, cough, shortness of breath, abnormal lung sounds or lower extremity swelling to suggest pneumonia or CHF. Recheck glucose after IV fluids 236. We will give additional IV fluids and attempt p.o. challenge. 0300 --patient reassessed and she states her nausea is improved but still has some right upper quadrant pain. Her heart rate has improved to the low 100s. She appears more comfortable. We will give a dose of Dilaudid and attempt p.o. challenge. If patient continues to improve, will plan for discharge to home. Patient able to tolerate p.o. challenge and pain and nausea improved. Recheck glucose 204. She feels comfortable going home. Outpatient gallbladder ultrasound ordered. Advised to follow up with the primary care doctor for re-evaluation. Usual and customary return precautions given prior to discharge. Medical Records Medical records reviewed: Yes I reviewed the patient's medical records. Imaging Data Radiologic Study: Radiologist's impression: CT Chest With Contrast; Diagnostic Exam date and time: 10/03/2022 1:19 AM Age: 37 years old Clinical indication: Nausea and vomiting; Other: Ruq abd pain, n/v/d, R/O cholecystitis / colitis TECHNIQUE: Imaging protocol: Diagnostic computed tomography of the chest with contrast. 3D rendering (Not supervised by radiologist): MIP and/or 3D reconstructed images were created by the technologist. Contrast material: OMNIPAQUE 350; Contrast volume: 100 ml; Contrast route: INTRAVENOUS (IV);? COMPARISON: CT CHEST/ABD/PEL W 01/28/2021 2:57 AM FINDINGS: Lungs: There is heterogeneous attenuation of the pulmonary parenchyma, consistent with air trapping from underlying small airways disease. There are diffuse interstitial infiltrates present. This may represent cardiogenic versus noncardiogenic edema. An acute inflammatory process and/or infectious process/pneumonia are not excluded. Pleural spaces: There is no evidence of pneumothorax. There are no pleural effusions present. Heart: The cardiac structures are normal. Coronary arteries: No evidence of significant coronary artery atherosclerotic plaque or calcification. Mediastinal space: There is thickening of the distal esophagus consider esophagitis. Lymph nodes: Unremarkable. No enlarged lymph nodes. Vasculature: The aorta is normal. The pulmonary arteries are not enlarged. There is no evidence of filling defects within the pulmonary arterial circulation to suggest pulmonary embolism. Diaphragm: There is a small hiatal hernia present. Intraperitoneal space: Please see CT of the abdomen and pelvis. Bones/joints: Unremarkable. No acute fracture. Soft tissues: Unremarkable. IMPRESSION: 1. ? There is thickening of the distal esophagus consider esophagitis. 2. ? There are diffuse interstitial infiltrates present. This may represent cardiogenic versus noncardiogenic edema. An acute inflammatory process and/or infectious process/pneumonia are not excluded. 3. ? There is no evidence of filling defects within the pulmonary arterial circulation to suggest pulmonary embolism. 4. ? There is heterogeneous attenuation of the pulmonary parenchyma, consistent with air trapping from underlying small airways disease. CT Abdomen And Pelvis With Contrast Exam date and time: 10/03/2022 1:19 AM Age: 37 years old Clinical indication: Nausea and vomiting; Other: Ruq abd pain, n/v/d, R/O cholecystitis / colitis TECHNIQUE: Imaging protocol: Computed tomography of the abdomen and pelvis with contrast. 3D rendering (Not supervised by radiologist): MIP and/or 3D reconstructed images were created by the technologist. Contrast material: OMNIPAQUE 350; Contrast volume: 100 ml; Contrast route: INTRAVENOUS (IV);? COMPARISON: CT ABDOMEN PELVIS W 01/31/2022 10:30 PM FINDINGS: Lungs: The lungs are normal. There is no evidence of focal pulmonary consolidation. Pleural spaces: There is no evidence of pneumothorax. There are no pleural effusions present. Heart: The cardiac structures are normal. Liver: There are no focal liver lesions present. There is no evidence of intrahepatic or extrahepatic biliary ductal dilation. Gallbladder and bile ducts: The gallbladder is normal. There is no cholelitiasis, wall thickening or pericholecystic fluid to suggest cholecystitis. Pancreas: The pancreas is normal. Spleen: The spleen is normal. Adrenal glands: The adrenal glands are normal. Kidneys and ureters: No evidence of hydronephrosis or perinephric fluid collections. The ureters appear normal. Nonobstructing 3 mm calculus present within the inferior pole left kidney. Stomach and bowel: There are fluid-filled loops of small bowel with air-fluid levels. There is mild small bowel wall thickening and mucosal enhancement consistent with inflammatory changes. No evidence of obstruction. Findings are consistent with acute enteritis. There is no evidence of intestinal obstruction. No diverticulitis is present. Appendix: A normal appendix is identified. There is no evidence of distention or periappendiceal inflammation to suggest appendicitis. Intraperitoneal space: There is no free intraperitoneal air. There is no evidence of free intraperitoneal or pelvic fluid. There are no soft tissue masses or fluid collections. Vasculature: The aorta is normal without evidence of significant atherosclerosis or aneurysmal disease. The peripheral arterial vascular system visualized is unremarkable. The portal venous system visualized is unremarkable. The venous system visualized is unremarkable. Lymph nodes: There is no evidence of lymphadenopathy. Urinary bladder: The bladder is normal. Reproductive: The uterus is normal. The ovaries are normal. Bones/joints: The skeletal structures show no evidence of fracture or other acute processes. Soft tissues: The extra-abdominal soft tissues are normal. IMPRESSION: Findings are consistent with acute enteritis. Lab Data Lab results reviewed: Yes I reviewed the patient's lab results. Labs: Laboratory Tests Range/Units 10/03/22 10/03/22 10/03/22 00:30 00:30 00:30 WBC (4.4-10.8) 10^3/uL 18.05 H RBC (3.93-5.22) 10^6/uL 5.26 H Hgb (11.2-15.7) g/dL 16.5 H Hct (36.0-46.0) % 47.5 H MCV (80-95) fL 90 MCH (27.0-33.0) pg 31.4 MCHC (32.0-36.0) % 34.7 RDW (11.7-14.6) % 12.6 Plt Count (130-400) 10^3/uL 508 H MPV (8.0-11.0) fL 9.0 Immature Gran % 0.3 Neutrophils % 79.9 Lymphocytes % 15.6 Monocytes % 3.8 Eosinophils % 0.1 Basophils % 0.3 Nucleated RBC % (0.0-0.3) % 0.0 Absolute Neutrophils (1.2-6.7) 10^3/uL 14.42 H Absolute Lymphocytes (1.2-3.4) 10^3/uL 2.82 Absolute Monocytes (0.1-0.8) 10^3/uL 0.69 Absolute Eosinophils (0.0-0.7) 10^3/uL 0.02 Absolute Basophils (0.0-0.2) 10^3/uL 0.05 VBG pH (7.31-7.41) 7.41 VBG pCO2 (41-51) mmHg 53 H VBG pO2 mmHg 23 VBG HCO3 (23-28) mmol/L 34 H VBG Total CO2 (24-29) mmol/L 30 H VBG O2 Saturation % 46 VBG Base Excess (-2-3) mmol/L 9 H Sodium (136-145) mmol/L 136 Potassium (3.5-5.1) mmol/L 3.5 Chloride (98-107) mmol/L 95 L Carbon Dioxide (21.0-32.0) mmol/L 31.8 Anion Gap (3-11) mmol/L 9.2 BUN (7-18) mg/dL 9 Creatinine (0.55-1.02) mg/dL 0.9 Est GFR (CKD-EPI 2020) (mL/min/1.73m2) 84.44 Glucose (74-106) mg/dL 302 H Calcium (8.5-10.1) mg/dL 9.5 Total Bilirubin (0.2-1.0) mg/dL 0.6 AST (15-37) U/L 17 ALT (14-59) U/L 28 Alkaline Phosphatase (46-116) U/L 98 NT-Pro-B Natriuret Pep (<300) pg/mL Total Protein (6.4-8.2) g/dL 8.1 Albumin (3.4-5.0) g/dL 3.8 Urine Color (Yellow) Urine Clarity (Clear) Urine pH (5-8) Ur Specific [place] (1.005-1.025) Urine Protein (Negative) mg/dL Urine Ketones (Negative) mg/dL Urine Blood (Negative) Urine Nitrite (Negative) Urine Bilirubin (Negative) Urine Urobilinogen (Up to 0.2) mg/dL Ur Leukocyte Esterase (Negative) Urine Glucose (Negative) mg/dL COVID-19 Source SARS-CoV-2 (PCR) (Negative) Influenza Type A (PCR) (Negative) Influenza Type B (PCR) (Negative) RSV (PCR) (Negative) Range/Units 10/03/22 10/03/22 10/03/22 00:30 00:45 00:53 WBC (4.4-10.8) 10^3/uL RBC (3.93-5.22) 10^6/uL Hgb (11.2-15.7) g/dL Hct (36.0-46.0) % MCV (80-95) fL MCH (27.0-33.0) pg MCHC (32.0-36.0) % RDW (11.7-14.6) % Plt Count (130-400) 10^3/uL MPV (8.0-11.0) fL Immature Gran % Neutrophils % Lymphocytes % Monocytes % Eosinophils % Basophils % Nucleated RBC % (0.0-0.3) % Absolute Neutrophils (1.2-6.7) 10^3/uL Absolute Lymphocytes (1.2-3.4) 10^3/uL Absolute Monocytes (0.1-0.8) 10^3/uL Absolute Eosinophils (0.0-0.7) 10^3/uL Absolute Basophils (0.0-0.2) 10^3/uL VBG pH (7.31-7.41) VBG pCO2 (41-51) mmHg VBG pO2 mmHg VBG HCO3 (23-28) mmol/L VBG Total CO2 (24-29) mmol/L VBG O2 Saturation % VBG Base Excess (-2-3) mmol/L Sodium (136-145) mmol/L Potassium (3.5-5.1) mmol/L Chloride (98-107) mmol/L Carbon Dioxide (21.0-32.0) mmol/L Anion Gap (3-11) mmol/L BUN (7-18) mg/dL Creatinine (0.55-1.02) mg/dL Est GFR (CKD-EPI 2020) (mL/min/1.73m2) Glucose (74-106) mg/dL Calcium (8.5-10.1) mg/dL Total Bilirubin (0.2-1.0) mg/dL AST (15-37) U/L ALT (14-59) U/L Alkaline Phosphatase (46-116) U/L NT-Pro-B Natriuret Pep (<300) pg/mL 170 Total Protein (6.4-8.2) g/dL Albumin (3.4-5.0) g/dL Urine Color (Yellow) Yellow Urine Clarity (Clear) Cloudy Urine pH (5-8) 8.5 H Ur Specific [place] (1.005-1.025) 1.020 Urine Protein (Negative) mg/dL Negative Urine Ketones (Negative) mg/dL 80 H Urine Blood (Negative) Negative Urine Nitrite (Negative) Negative Urine Bilirubin (Negative) Negative Urine Urobilinogen (Up to 0.2) mg/dL 0.2 Ur Leukocyte Esterase (Negative) Negative Urine Glucose (Negative) mg/dL 500 H COVID-19 Source Nasopharynx SARS-CoV-2 (PCR) (Negative) Negative Influenza Type A (PCR) (Negative) Negative Influenza Type B (PCR) (Negative) Negative RSV (PCR) (Negative) Negative ECG Data Attestation: I personally reviewed and interpreted this ECG (s) as follows: Interpretation: Rate of 113, sinus, normal axis, normal intervals, no acute ischemic findings, no significant change compared to previous EKG. HPI General Mode of arrival: ambulatory. Date/Time Provider Initiated Documentation: 10/03/22 00:23. Limitations to Documentation: no limitations. Information obtained by: patient. HPI Narrative: Patient is a 37-year-old female with history of obesity, type 2 diabetes, diabetic gastroparesis, tubal ligation presents for nausea and vomiting for the past 2 weeks. She does report loose stools today. Patient has been seen here multiple times recently for the same complaint. She was last seen here 2 days ago for the same complaint and improved with meds and fluids and was discharged home. at bedside reports that patient has had ongoing vomiting for the last 3 years. Patient states she is followed by [facility] gastroenterology for a diagnosis of diabetic gastroparesis treated with Reglan, often in suppository form. She took the Reglan today without significant relief. She also endorses today that she has had intermittent right upper quadrant abdominal pain. Patient cannot describe the quality. She has not taken any medication for pain. She reports that her glucose has both been high and low at times. She has also had a diagnosis of cannabinoid hyperemesis syndrome but she reports she has not smoked any marijuana for the past few weeks. She denies any other drug use. She denies fever, cough, chest pain, difficulty breathing, urinary symptoms, recent travel, recent antibiotics or known sick contacts. She did have a recent surgery when she had her toe amputated on her left foot. Related Data Home Medications Medication Instructions Recorded Confirmed gabapentin 300 mg tablet 300 - 900 mg PO DIRECTED 01/24/21 10/03/22 lorazepam 0.5 mg tablet 0.5 mg PO DAILY 01/24/21 10/03/22 insulin aspart U-100 100 unit/mL 12 unit subcut TID 01/14/22 10/03/22 (3 mL) subcutaneous pen (Novolog FlexPen U-100 Insulin aspart) insulin glargine 100 unit/mL (3 40 unit subcut HS 01/14/22 10/03/22 mL) subcutaneous pen (Lantus Solostar U-100 Insulin) promethazine 25 mg tablet 25 mg PO TID PRN nausea and 02/06/22 10/03/22 vomiting #7 tabs blood-glucose sensor (Dexcom G6 #6 ea 05/03/22 10/01/22 Sensor device) lidocaine 5 % topical patch 1 patch topical DIRECTED 05/25/22 10/03/22 (Lidoderm) metoclopramide HCl 10 mg tablet 10 mg PO HS PRN 05/25/22 10/03/22 (Reglan) nicotine 7 mg/24 hr daily 1 patch topical DAILY 05/25/22 10/03/22 transdermal patch nystatin 100,000 unit/gram topical 1 applic topical DAILY 05/25/22 10/01/22 cream omeprazole 20 mg capsule,delayed 20 mg PO DAILY 05/25/22 10/03/22 release ondansetron 4 mg disintegrating 4 mg PO Q8H PRN nausea and vomiting 05/25/22 10/03/22 tablet promethazine 25 mg rectal 25 mg LA ONCE PRN 05/27/22 10/03/22 suppository empagliflozin 10 mg tablet 10 mg PO DAILY #30 tabs 08/28/22 10/03/22 (Jardiance) tramadol 50 mg tablet 50 mg PO Q6H PRN PRN #30 tabs 08/28/22 10/03/22 promethazine 25 mg rectal 25 mg LA Q6H PRN nausea and 10/03/22 suppository vomiting #12 ea sucralfate 1 gram tablet (Carafate) 1 gm PO QACHS #14 tabs 10/03/22 Previous Rx's Medication Instructions Recorded promethazine 25 mg tablet 25 mg PO TID PRN nausea and 02/06/22 vomiting #7 tabs blood-glucose sensor (Dexcom G6 #6 ea 05/03/22 Sensor device) empagliflozin 10 mg tablet 10 mg PO DAILY #30 tabs 08/28/22 (Jardiance) tramadol 50 mg tablet 50 mg PO Q6H PRN PRN #30 tabs 08/28/22 promethazine 25 mg rectal 25 mg LA Q6H PRN nausea and 10/03/22 suppository vomiting #12 ea sucralfate 1 gram tablet (Carafate) 1 gm PO QACHS #14 tabs 10/03/22 Allergies Allergy/AdvReac Type Severity Reaction Status Date / Time ibuprofen [From Advil] Allergy Severe throat Verified 10/03/22 00:31 closes pomegranate Allergy Severe Anaphylaxis Verified 10/03/22 00:31 citalopram AdvReac Severe Bodily harm Verified 10/03/22 00:31 General Stated Complaint: Nausea/Vomit/Diar ARNOLD: 3 Review of Systems All systems reviewed & are unremarkable except as noted in HPI and below Constitutional Constitutional: Reports as per HPI, Denies chills and Denies fever(s) Eyes Eyes: Denies blurry vision ENT Ears, Nose, Mouth, and Throat: Denies dizziness, Denies sore throat and Denies throat swelling Cardiovascular Cardiovascular: Denies chest pain and Denies dyspnea Respiratory Respiratory: Denies cough and Denies dyspnea Gastrointestinal Gastrointestinal: Reports abdominal pain, Denies diarrhea, Reports nausea and Reports vomiting Genitourinary Genitourinary: Denies hematuria and Denies dysuria Musculoskeletal Musculoskeletal: Denies back pain and Denies numbness Integumentary/Breasts Skin/Breast: Denies lesions and Denies rash Neurologic Neurologic: Denies dizziness, Denies localized weakness and Denies numbness Allergic/Immunologic Allergic/Immunologic: Denies throat swelling PFSH All Active Problems (Updated 10/03/22 @ 03:29 by Irene Madden DO) Acute alteration in mental status (Acute) Nausea and vomiting (Acute) Chest pain, unspecified (Acute) Sinus tachycardia (Acute) Chronic vomiting (Acute) Right upper quadrant abdominal pain (Acute) Calf pain (Acute) Cellulitis of foot (Acute) Diabetic toe ulcer (Acute) Abscess (Acute) Vomiting (Acute) Gastroparesis (Chronic) Vomiting (Acute) Acute dehydration (Acute) Nausea and vomiting (Acute) IDDM (insulin dependent diabetes mellitus) (Chronic) Tobacco abuse (Acute) Cannabinoid hyperemesis syndrome (Acute) Upper GI bleeding (Acute) UTI (urinary tract infection) (Acute) Hypokalemia (Acute) Type 2 diabetes mellitus (Chronic) Type 2 diabetes mellitus with diabetic neuropathy (Chronic) Ulcer of other part of foot (Acute) Amputation of toe of left foot (Acute) Infection of toe (Acute) Osteomyelitis (Acute) Medical History Anxiety and depression Back pain Cellulitis of third toe, left Chest pain r/t Anxiety Diabetes Type 1, per patient she said she was told she had diabetes type 2. Diabetic neuropathy History of cellulitis toe History of kidney stones History of osteomyelitis IBS (irritable bowel syndrome) Peripheral neuropathy Suicide attempt Surgical History Amputation of left great toe H/O tubal ligation History of amputation 2nd toe left foot Family History Paternal Grandmother Heart disease Diabetes Maternal Aunt Hypertension Breast cancer maternal great aunt Maternal Grandfather Hypertension Maternal Grandmother Breast cancer Maternal Aunt No problems noted. Maternal Cousin Breast cancer Maternal Cousin Breast cancer Maternal Cousin Breast cancer Social History Smoking/Tobacco Use Status: Current every day Tobacco Type: cigarettes Smoking risk assessment performed?: Yes Alcohol Intake: current Alcohol Intake frequency: holidays/special occasions only Drug use: Daily Substance use type: marijuana Details: last marijuana was last week Do you feel safe at home: Yes Do you feel safe in your relationship?: Yes Exam Const General: cooperative and no acute distress Orientation: alert, awake and oriented x3 HENMT Head: normal to inspection Face and sinus: normal facial exam Eyes General: appearance normal, both eyes and all related structures Pupils: PERRL EOM: EOM intact bilaterally Neck Neck: normal visual inspection and No submandibular swelling Lymphatic: no lymphadenopathy noted Resp Effort & Inspection: normal respiratory effort and able to speak in complete sentences Auscultation: clear to auscultation bilaterally Cardio Rate: regular rate Rhythm: regular rhythm GI Inspection: normal to inspection and obesity Palpation: soft, not firm, not rigid and tender in the RUQ Auscultation: hypoactive bowel sounds Skin General skin exam: no rashes or lesions noted Neuro General: patient alert, patient awake and patient oriented x3 Cognition: normal cognition Speech: speech normal Motor: muscle tone normal throughout Sensory Exam: no sensory deficits noted Extrem General: normal to inspection, full ROM, capillary refill normal, no calf tenderness bilaterally and no edema Psych Appearance: grossly normal Mental Status: mental status grossly normal Speech and Movement: speech and movement normal Affect: normal affect
--- NOTE | 2022-10-03 00:30 | RT.EKG_ITS ---
APPROVED REPORT Exam: Resting ECG Reason for Exam: lethargic Patient Location: E HR:113 bpm ECG Measurements Heart Rate 113 AXIS [place] 144 P 71 QRSd 81 QRS 48 QT 319 T 33 QTc 439 Conclusion Sinus tachycardia...rate> 99 Abnrm R prog, consider ASMI or lead placement...Q >30mS, diminished R, V1-V2. Sinus. Normal axis. No acute ischemic pattern. No significant change compared to previous EKG dates .
[2022-10-03 00:42] LABS: BE (Venous) 9 mmol/L (-2-3); HCO3 (Venous) 34 mmol/L (23-28); O2 Sat (Venous) 46 %; TCO2 (Venous) 30 mmol/L (24-29); pCO2 (Venous) 53 mmHg (41-51); pH (Venous) 7.41 (7.31-7.41); pO2 (Venous) 23 mmHg
--- NOTE | 2022-10-03 00:45 | DI.CT_ITS ---
Exam(s) CT CHEST/ABD/PEL W EXAM: CT CHEST/ABD/PEL W CLINICAL HISTORY: ruq abd pain,n/v/d,r/o cholecystitis/colitis TECHNIQUE: Imaging Protocol: Axial computed tomography images with coronal and sagittal reformatted images were created and reviewed CONTRAST MATERIAL: Intravenous: Omnipaque 350 contrast volume:100 mL Oral: No COMPARISON: CT CT ABDOMEN PELVIS W from 01/31/2022 FINDINGS: CHEST: Tracheobronchial tree: Patent where visualized. Pulmonary parenchyma: No consolidation or dominant measurable mass. No architectural distortion. Visualized thyroid gland: Unremarkable. Mediastinum and Catalina: No dominant adenopathy or fluid collection. There is mild thickening of the dis zohaib 2/3 of the wall of the esophagus. Pleura: No effusion or pneumothorax. Heart: The heart is not dilated. No coronary artery calcifications are seen. No pericardial effusion. Pulmonary arteries: No large central pulmonary embolus is identified. The segmental and subsegmental pulmonary arteries are poorly opacified. Aorta: Thoracic aorta non-dilated. Lymph nodes: Within normal limits. Soft tissues: Unremarkable. Bones:Within normal limits for the patient's age. ABDOMEN: Liver: Normal density. No measurable mass. Portal, Superior Mesenteric, and Splenic Veins: Unremarkable. Gallbladder and Biliary Tract: No radiodense calculus or dilation. Pancreas: Normal density, no abnormal calcifications or inflammatory process. Spleen: Normal. Adrenals: No masses seen. Kidneys: Normal size, contour and axis. There is a 3 mm nonobstructing stone in the lower pole of the left kidney. There is no hydronephrosis. No masses seen. Abdominal Aorta: Abdominal portion non-dilated. Bowel: There is no evidence of bowel obstruction. There is mild wall thickening seen in the proximal 2/3 of the small bowel which may reflect an enteritis. Appendix is unremarkable. Peritoneal Cavity: No ascites, collection or mesenteric inflammatory response. No free air. Lymph Nodes: Within normal limits. Bones: Within normal limits for the patient's age. Soft Tissues: Unremarkable. PELVIS: Bladder: Symmetric distention, no gross wall thickening. Reproductive Organs: Unremarkable as visualized. Lymph Nodes: Within normal limits. Bones: Within normal limits. IMPRESSION: 1. There is diffuse thickening of the distal 2/3 of the esophagus. Infectious or inflammatory esopha gitis should be considered. Please correlate clinically. 2. No focal consolidating infiltrates. 3. Findings suspicious for an acute enteritis. RADIATION DOSE DELIVERED: 1,659.95mGy.cm Total DLP DATA REPOSITORY: All CT scans at this facility are submitted to the National Radiology Data Registry (NRDR) Dose Index Registry (DIR) with the [employer] (A[employer]). RADIATION OPTIMIZATION: All CT scans at this facility use at least one of these dose optimization te chniques: automated exposure control; mA and/or kV adjustment per patient size (includes targeted exa ms where dose is matched to clinical indication); or iterative reconstruction.
[2022-10-03 00:46] LABS: Abs Immature Grans 0.06 10^3/uL (0.0-0.06); Absolute Basophil Count 0.05 10^3/uL (0.0-0.2); Absolute Eosinophil Count 0.02 10^3/uL (0.0-0.7); Absolute Lymphocyte Count 2.82 10^3/uL (1.2-3.4); Absolute Monocyte Count 0.69 10^3/uL (0.1-0.8); Absolute Neutrophil Count 14.42 10^3/uL (1.2-6.7); Basophils % 0.3; Eosinophils % 0.1; HCT 47.5 % (36.0-46.0); HGB 16.5 g/dL (11.2-15.7); Immature Grans % 0.3; Lymphocytes % 15.6; MCH 31.4 pg (27.0-33.0); MCHC 34.7 % (32.0-36.0); MCV 90 fL (80-95); Monocytes % 3.8; Neutrophils % 79.9; Platelet Count 508 10^3/uL (130-400); RBC 5.26 10^6/uL (3.93-5.22); RDW 12.6 % (11.7-14.6); RDW-SD 41.9 fL; WBC 18.05 10^3/uL (4.4-10.8)
[2022-10-03 00:58] LABS: ALT 28 U/L (14-59); AST 17 U/L (15-37); Albumin 3.8 g/dL (3.4-5.0); Alkaline Phosphatase 98 U/L (46-116); Anion Gap 9.2 mmol/L (3-11); BUN 9 mg/dL (7-18); Bilirubin, Total 0.6 mg/dL (0.2-1.0); CO2 31.8 mmol/L (21.0-32.0); CREATININE 0.9 mg/dL (0.55-1.02); Calcium 9.5 mg/dL (8.5-10.1); Chloride 95 mmol/L (98-107); Estimated GFR 84.44 (mL/min/1.73m2); Glucose 302 mg/dL (74-106); Potassium 3.5 mmol/L (3.5-5.1); Sodium 136 mmol/L (136-145); Total Protein 8.1 g/dL (6.4-8.2)
[2022-10-03] MEDS: Normal Saline 1,000 ML 1000 ML IV ×2 (01:00→02:03)
[2022-10-03 01:02] LABS: Bilirubin Negative (Negative); Blood Negative (Negative); Clarity Cloudy (Clear); Glucose 500 mg/dL (Negative); Ketones 80 mg/dL (Negative); Leukocyte Esterase Negative (Negative); Nitrite Negative (Negative); Urobilinogen 0.2 mg/dL (Up to 0.2); pH 8.5 (5-8)
[2022-10-03] MEDS: ACETAMINOPHEN 1,000 MG/100 ML BTL 400 MG IVPB (01:02)
[2022-10-03] MEDS: Metoclopramide 10 MG/2 ML VIAL IVP (01:03)
[2022-10-03] MEDS: Omnipaque 350 MG/ML 100 ML BTL IJ (01:28)
[2022-10-03] MEDS: Normal Saline - Diluent 50 ML VIAL IJ (01:29)
[2022-10-03] MEDS: Normal Saline Flush 10 ML SYR IVP (01:29)
[2022-10-03] MEDS: LORazepam 2 MG/ML VIAL 0.5 MG IVP (01:29)
[2022-10-03 01:33] LABS: COVID-19 PCR Negative (Negative); Influenza A PCR Negative (Negative); Influenza B PCR Negative (Negative); RSV PCR Negative (Negative)
[2022-10-03 01:41] LABS: Source Nasopharynx
--- NOTE | 2022-10-03 01:55 | DI.VRAD_ITS ---
PROCEDURE INFORMATION: Exam: CT Chest With Contrast; Diagnostic Exam date and time: 10/03/2022 1:19 AM Age: 37 years old Clinical indication: Nausea and vomiting; Other: Ruq abd pain, n/v/d, R/O cholecystitis / colitis TECHNIQUE: Imaging protocol: Diagnostic computed tomography of the chest with contrast. 3D rendering (Not supervised by radiologist): MIP and/or 3D reconstructed images were created by the technologist. Contrast material: OMNIPAQUE 350; Contrast volume: 100 ml; Contrast route: INTRAVENOUS (IV); COMPARISON: CT CHEST/ABD/PEL W 01/28/2021 2:57 AM FINDINGS: Lungs: There is heterogeneous attenuation of the pulmonary parenchyma, consistent with air trapping from underlying small airways disease. There are diffuse interstitial infiltrates present. This may represent cardiogenic versus noncardiogenic edema. An acute inflammatory process and/or infectious process/pneumonia are not excluded. Pleural spaces: There is no evidence of pneumothorax. There are no pleural effusions present. Heart: The cardiac structures are normal. Coronary arteries: No evidence of significant coronary artery atherosclerotic plaque or calcification. Mediastinal space: There is thickening of the distal esophagus consider esophagitis. Lymph nodes: Unremarkable. No enlarged lymph nodes. Vasculature: The aorta is normal. The pulmonary arteries are not enlarged. There is no evidence of filling defects within the pulmonary arterial circulation to suggest pulmonary embolism. Diaphragm: There is a small hiatal hernia present. Intraperitoneal space: Please see CT of the abdomen and pelvis. Bones/joints: Unremarkable. No acute fracture. Soft tissues: Unremarkable. IMPRESSION: 1. There is thickening of the distal esophagus consider esophagitis. 2. There are diffuse interstitial infiltrates present. This may represent cardiogenic versus noncardiogenic edema. An acute inflammatory process and/or infectious process/pneumonia are not excluded. 3. There is no evidence of filling defects within the pulmonary arterial circulation to suggest pulmonary embolism. 4. There is heterogeneous attenuation of the pulmonary parenchyma, consistent with air trapping from underlying small airways disease. PROCEDURE INFORMATION: Exam: CT Abdomen And Pelvis With Contrast Exam date and time: 10/03/2022 1:19 AM Age: 37 years old Clinical indication: Nausea and vomiting; Other: Ruq abd pain, n/v/d, R/O cholecystitis / colitis TECHNIQUE: Imaging protocol: Computed tomography of the abdomen and pelvis with contrast. 3D rendering (Not supervised by radiologist): MIP and/or 3D reconstructed images were created by the technologist. Contrast material: OMNIPAQUE 350; Contrast volume: 100 ml; Contrast route: INTRAVENOUS (IV); COMPARISON: CT ABDOMEN PELVIS W 01/31/2022 10:30 PM FINDINGS: Lungs: The lungs are normal. There is no evidence of focal pulmonary consolidation. Pleural spaces: There is no evidence of pneumothorax. There are no pleural effusions present. Heart: The cardiac structures are normal. Liver: There are no focal liver lesions present. There is no evidence of intrahepatic or extrahepatic biliary ductal dilation. Gallbladder and bile ducts: The gallbladder is normal. There is no cholelitiasis, wall thickening or pericholecystic fluid to suggest cholecystitis. Pancreas: The pancreas is normal. Spleen: The spleen is normal. Adrenal glands: The adrenal glands are normal. Kidneys and ureters: No evidence of hydronephrosis or perinephric fluid collections. The ureters appear normal. Nonobstructing 3 mm calculus present within the inferior pole left kidney. Stomach and bowel: There are fluid-filled loops of small bowel with air-fluid levels. There is mild small bowel wall thickening and mucosal enhancement consistent with inflammatory changes. No evidence of obstruction. Findings are consistent with acute enteritis. There is no evidence of intestinal obstruction. No diverticulitis is present. Appendix: A normal appendix is identified. There is no evidence of distention or periappendiceal inflammation to suggest appendicitis. Intraperitoneal space: There is no free intraperitoneal air. There is no evidence of free intraperitoneal or pelvic fluid. There are no soft tissue masses or fluid collections. Vasculature: The aorta is normal without evidence of significant atherosclerosis or aneurysmal disease. The peripheral arterial vascular system visualized is unremarkable. The portal venous system visualized is unremarkable. The venous system visualized is unremarkable. Lymph nodes: There is no evidence of lymphadenopathy. Urinary bladder: The bladder is normal. Reproductive: The uterus is normal. The ovaries are normal. Bones/joints: The skeletal structures show no evidence of fracture or other acute processes. Soft tissues: The extra-abdominal soft tissues are normal. IMPRESSION: Findings are consistent with acute enteritis. Dictated and Authenticated by: [place] MD. Ordering:LUBA Bonilla MD
[2022-10-03 02:18] LABS: NT-proBNP 170 pg/mL (<300)
[2022-10-03] MEDS: HYDROmorphone 2 MG/ML SYR 0.5 MG IVP (03:26)
--- NOTE | 2022-10-03 03:52 | NUR.NOTE ---
Nursing Note: Pt ambulatory to bathroom without difficulty. Pt provided with food/drink for PO challenge. Pt out of ER ambulatory with discharge papers, all questions answered.
--- NOTE | 2022-10-03 14:35 | NUR.NOTE ---
Accessed chart to determine orders for EKG and to determine whether or not one needs to be cancelled. Nursing Note:
== END 2022-10-03 04:04 | disposition home or self-care (01) ==
PROVIDERS: Emergency Provider Physician Assistant
DX: R10.11 Right upper quadrant pain (principal); R11.2 Nausea with vomiting, unspecified; E11.43 Type 2 diabetes mellitus with diabetic autonomic (poly)neuropathy; R00.0 Tachycardia, unspecified; E66.9 Obesity, unspecified; E11.42 Type 2 diabetes mellitus with diabetic polyneuropathy
CPT/HCPCS: 74177; 80053; 81025; 82805; 87637; 93005; 96361; 96374; 96375; 99284; 99285; 71260; 81003; 83880; 85025; 93010; J0131; J1170; J2060; J2765; J3490

== ENCOUNTER 2022-10-05 04:55 | Emergency (ER) | payer BC, MEDICAID, SELFPAY ==
[2022-10-05 05:01] VITALS: BP 124/91; PULSE 113; RESP 19; TEMP 36.8; O2SAT 99
--- NOTE | 2022-10-05 05:12 | ED.GENADUL_ITS ---
Discharge Plan Disposition Condition: Stable Discharge Details Chief Complaint: Nausea/Vomit/Diar Clinical Impression: Vomiting Primary Care Provider: Unknown,Unknown ED Provider: Carrington Mera Home Meds and New Rx's Prescriptions: No Action gabapentin 300 mg Tablet 300 - 900 mg PO DIRECTED Rx Instructions: 300 qam 900 hs lorazepam 0.5 mg Tablet 0.5 mg PO DAILY insulin aspart U-100 [Novolog FlexPen U-100 Insulin] 100 unit/mL (3 mL) insulin pen 12 unit SUBCUT TID Patient Comments: INJECT 9 UNITS SUBCUTANEOUSLY THREE TIMES DAILY WITH MEALS insulin glargine [Lantus Solostar U-100 Insulin] 100 unit/mL (3 mL) insulin pen 40 unit SUBCUT HS Patient Comments: INJECT 40 UNITS SUBCUTANEOUSLY AT BEDTIME promethazine 25 mg tablet 25 mg PO TID PRN (Reason: nausea and vomiting) Qty: 7 0RF Patient Comments: not taking nystatin 100,000 unit/gram Cream 1 applic TOPICAL DAILY Patient Comments: not taking lidocaine [Lidoderm] 5 % adhesive patch,medicated 1 patch topical DIRECTED Patient Comments: PLACE 1 PATCH ONTO THE SKIN DAILY. PATCHE(S) MAY REMAIN IN PLACE FOR UP TO 12 HOURS IN ANY 24-HOUR PERIOD omeprazole 20 mg Capsule,Delayed Release(Dr/Ec) 20 mg PO DAILY Patient Comments: not taking nicotine 7 mg/24 hr patch 24 hour 1 patch topical DAILY Patient Comments: APPLY 1 PATCH DAILY TOPICALLY TO SKIN WITHOUT HAIR. APPLY TO A DIFFERENT SITE AT THE SAME TIME EACH DAY, AFTER COMPLETION OF 14MG PATCHES ondansetron 4 mg tablet,disintegrating 4 mg PO Q8H PRN (Reason: nausea and vomiting) metoclopramide HCl [Reglan] 10 mg tablet 10 mg PO HS PRN promethazine 25 mg suppository 25 mg DE ONCE PRN Rx Instructions: may repeat once in 12 hours (DME) Dexcom G6 Sensor Device See Rx Instructions .Route Qty: 6 0RF Rx Instructions: As directed Jardiance 10 mg Tablet 10 mg PO DAILY Qty: 30 0RF tramadol 50 mg Tablet 50 mg PO Q6H PRN PRNQty: 30 0RF promethazine 25 mg suppository 25 mg DE Q6H PRN (Reason: nausea and vomiting) Qty: 12 0RF sucralfate [Carafate] 1 gram tablet 1 gm PO QACHS Qty: 14 0RF Medical Decision Making 37 yo female with hx of DM, gastroparesis, recurrent episodes of vomiting, who comes in with continued intermittent vomiting and nausea for 2 weeks despite zofran and promethazine. She was seen last week and had labs and a ct which showed nonspecific inflammation of the esophagus. She states since then she is still vomiting. Denies fevers, chills, chest pain, dyspnea. She can't think of anything that brings the n/v on. She arrives stable caox4 speaking clearly. She has a soft abdomen that is nondistended and has tenderness with palpation to the epigastric region, no rebound or guarding, no lower abdominal tenderness. Suspect cyclic vomiting, will treat with ivf and droperidol, obtain cbc, cmp, lipase, ekg/troponin. Given had a ct last week do not feel repeat CT indicated. If symptoms don't improve will consider ruq u/s. labs show no significant abnormalities from baseline. She states nausea is improved, still has abdominal discomfort now localized to the ruq. Will proceed with ruq u/s Differential Diagnosis Differential Diagnosis: cyclic vomiting, electrolyte abnormality, pancreatitis, cholecystitis Medical Records Medical records reviewed: Yes I reviewed the patient's medical records. Lab Data Lab results reviewed: Yes I reviewed the patient's lab results. HPI General Date/Time Provider Initiated Documentation: 10/05/22 04:56 . Limitations to Documentation: no limitations . Information obtained by: patient and family . History of Present Illness 37 year old F presents to the emergency department with the chief complaint of n/v, described as moderate, and it has been intermittent. No relieving factors improve symptom(s), No exacerbating factors reported . Patient notes denies chest pain and fever/chills. Related Data Home Medications Medication Instructions Recorded Confirmed gabapentin 300 mg tablet 300 - 900 mg PO DIRECTED 01/24/21 10/03/22 lorazepam 0.5 mg tablet 0.5 mg PO DAILY 01/24/21 10/03/22 insulin aspart U-100 100 unit/mL 12 unit subcut TID 01/14/22 10/03/22 (3 mL) subcutaneous pen (Novolog FlexPen U-100 Insulin aspart) insulin glargine 100 unit/mL (3 40 unit subcut HS 01/14/22 10/03/22 mL) subcutaneous pen (Lantus Solostar U-100 Insulin) promethazine 25 mg tablet 25 mg PO TID PRN nausea and 02/06/22 10/03/22 vomiting #7 tabs blood-glucose sensor (Dexcom G6 #6 ea 05/03/22 10/01/22 Sensor device) lidocaine 5 % topical patch 1 patch topical DIRECTED 05/25/22 10/03/22 (Lidoderm) metoclopramide HCl 10 mg tablet 10 mg PO HS PRN 05/25/22 10/03/22 (Reglan) nicotine 7 mg/24 hr daily 1 patch topical DAILY 05/25/22 10/03/22 transdermal patch nystatin 100,000 unit/gram topical 1 applic topical DAILY 05/25/22 10/01/22 cream omeprazole 20 mg capsule,delayed 20 mg PO DAILY 05/25/22 10/03/22 release ondansetron 4 mg disintegrating 4 mg PO Q8H PRN nausea and vomiting 05/25/22 10/03/22 tablet promethazine 25 mg rectal 25 mg DE ONCE PRN 05/27/22 10/03/22 suppository empagliflozin 10 mg tablet 10 mg PO DAILY #30 tabs 08/28/22 10/03/22 (Jardiance) tramadol 50 mg tablet 50 mg PO Q6H PRN PRN #30 tabs 08/28/22 10/03/22 promethazine 25 mg rectal 25 mg DE Q6H PRN nausea and 10/03/22 suppository vomiting #12 ea sucralfate 1 gram tablet (Carafate) 1 gm PO QACHS #14 tabs 10/03/22 Previous Rx's Medication Instructions Recorded promethazine 25 mg tablet 25 mg PO TID PRN nausea and 02/06/22 vomiting #7 tabs blood-glucose sensor (Dexcom G6 #6 ea 05/03/22 Sensor device) empagliflozin 10 mg tablet 10 mg PO DAILY #30 tabs 08/28/22 (Jardiance) tramadol 50 mg tablet 50 mg PO Q6H PRN PRN #30 tabs 08/28/22 promethazine 25 mg rectal 25 mg DE Q6H PRN nausea and 10/03/22 suppository vomiting #12 ea sucralfate 1 gram tablet (Carafate) 1 gm PO QACHS #14 tabs 10/03/22 Allergies Allergy/AdvReac Type Severity Reaction Status Date / Time ibuprofen [From Advil] Allergy Severe throat Verified 10/03/22 00:31 closes pomegranate Allergy Severe Anaphylaxis Verified 10/03/22 00:31 citalopram AdvReac Severe Bodily harm Verified 10/03/22 00:31 General Stated Complaint: Nausea/Vomit/Diar ARNOLD: 3 Review of Systems All systems reviewed & are unremarkable except as noted in HPI and below Constitutional Constitutional: Denies chills and Denies fever(s) Cardiovascular Cardiovascular: Denies chest pain and Denies dyspnea Respiratory Respiratory: Denies cough and Denies dyspnea Gastrointestinal Gastrointestinal: Reports abdominal pain, Reports nausea and Reports vomiting Genitourinary Genitourinary: Denies dysuria Musculoskeletal Musculoskeletal: Denies joint swelling Integumentary/Breasts Skin/Breast: Denies rash PFS All Active Problems (Updated 10/05/22 @ 06:43 by Carrington Mera MD) Acute alteration in mental status (Acute) Nausea and vomiting (Acute) Chest pain, unspecified (Acute) Sinus tachycardia (Acute) Chronic vomiting (Acute) Right upper quadrant abdominal pain (Acute) Calf pain (Acute) Cellulitis of foot (Acute) Diabetic toe ulcer (Acute) Abscess (Acute) Vomiting (Acute) Gastroparesis (Chronic) Vomiting (Acute) Acute dehydration (Acute) Nausea and vomiting (Acute) IDDM (insulin dependent diabetes mellitus) (Chronic) Tobacco abuse (Acute) Cannabinoid hyperemesis syndrome (Acute) Upper GI bleeding (Acute) UTI (urinary tract infection) (Acute) Hypokalemia (Acute) Type 2 diabetes mellitus (Chronic) Type 2 diabetes mellitus with diabetic neuropathy (Chronic) Ulcer of other part of foot (Acute) Amputation of toe of left foot (Acute) Infection of toe (Acute) Osteomyelitis (Acute) Medical History Anxiety and depression Back pain Cellulitis of third toe, left Chest pain r/t Anxiety Diabetes Type 1, per patient she said she was told she had diabetes type 2. Diabetic neuropathy History of cellulitis toe History of kidney stones History of osteomyelitis IBS (irritable bowel syndrome) Peripheral neuropathy Suicide attempt Surgical History Amputation of left great toe H/O tubal ligation History of amputation 2nd toe left foot Family History Paternal Grandmother Heart disease Diabetes Maternal Aunt Hypertension Breast cancer maternal great aunt Maternal Grandfather Hypertension Maternal Grandmother Breast cancer Maternal Aunt No problems noted. Maternal Cousin Breast cancer Maternal Cousin Breast cancer Maternal Cousin Breast cancer Social History Smoking/Tobacco Use Status: Current every day Tobacco Type: cigarettes Smoking risk assessment performed?: Yes Alcohol Intake: current Alcohol Intake frequency: holidays/special occasions only Drug use: Daily Substance use type: marijuana Details: last marijuana was last week Do you feel safe at home: Yes Do you feel safe in your relationship?: Yes Exam Const General: no acute distress Orientation: alert HENMT Head: normal to inspection Ears: external ears normal General nose exam: external nose normal Mouth: moist mucous membranes Eyes General: appearance normal, both eyes and all related structures Neck Neck: normal visual inspection Resp Effort & Inspection: normal respiratory effort and able to speak in complete sentences Cardio Rate: regular rate GI Palpation: soft and tender Skin General skin exam: no rashes or lesions noted Neuro General: patient alert and patient oriented x3 Extrem General: normal to inspection Psych Mental Status: mental status grossly normal Course Vital Signs Vital signs: Vital Signs Temperature 36.8 C 10/05/22 05:01 Pulse 113 H 10/05/22 05:01 Respiratory Rate 19 10/05/22 05:01 Blood Pressure 124/91 H 10/05/22 05:01 Pulse Oximetry 99 10/05/22 05:01 Temperature 36.8 C 10/05/22 05:01 Temperature Source Temporal Artery Scan 10/05/22 05:01 Pulse 113 H 10/05/22 05:01 Respiratory Rate 19 10/05/22 05:01 Respiratory Effort Normal 10/05/22 05:03 Blood Pressure 124/91 H 10/05/22 05:01 Blood Pressure Position Sitting 10/05/22 05:01 Pulse Oximetry 99 10/05/22 05:01 Oxygen Delivery Method Room Air 10/05/22 05:01 Oxygen Flow Rate 0 10/05/22 05:01 Pain Level 0 10/05/22 05:01
[2022-10-05 05:30] LABS: Abs Immature Grans 0.05 10^3/uL (0.0-0.06); Absolute Eosinophil Count 0.08 10^3/uL (0.0-0.7); Absolute Lymphocyte Count 2.85 10^3/uL (1.2-3.4); BE (Venous) 9 mmol/L (-2-3); Basophils % 0.4; Eosinophils % 0.6; HCO3 (Venous) 33 mmol/L (23-28); HCT 45.6 % (36.0-46.0); HGB 16.2 g/dL (11.2-15.7); Immature Grans % 0.4; Lymphocytes % 20.5; MCH 31.3 pg (27.0-33.0); MCHC 35.5 % (32.0-36.0); MCV 88 fL (80-95); MPV 8.7 fL (8.0-11.0); Monocytes % 8.6; Neutrophils % 69.5; O2 Sat (Venous) 52 %; Platelet Count 430 10^3/uL (130-400); RBC 5.18 10^6/uL (3.93-5.22); RDW 12.4 % (11.7-14.6); RDW-SD 40.7 fL; TCO2 (Venous) 29 mmol/L (24-29); WBC 13.91 10^3/uL (4.4-10.8); pCO2 (Venous) 50 mmHg (41-51); pH (Venous) 7.43 (7.31-7.41); pO2 (Venous) 25 mmHg
[2022-10-05 05:31] LABS: Absolute Basophil Count 0.06 10^3/uL (0.0-0.2); Absolute Neutrophil Count 9.67 10^3/uL (1.2-6.7)
[2022-10-05] MEDS: Droperidol 5 MG/2 ML VIAL IVP (05:31)
[2022-10-05] MEDS: Normal Saline 1,000 ML 1000 ML IV (05:32)
[2022-10-05 05:50] LABS: ALT 26 U/L (14-59); AST 13 U/L (15-37); Albumin 3.7 g/dL (3.4-5.0); Alkaline Phosphatase 88 U/L (46-116); Anion Gap 6.3 mmol/L (3-11); BUN 11 mg/dL (7-18); Bilirubin, Direct 0.2 mg/dL (0.0-0.2); Bilirubin, Total 0.5 mg/dL (0.2-1.0); CO2 32.7 mmol/L (21.0-32.0); CREATININE 0.8 mg/dL (0.55-1.02); Calcium 9.3 mg/dL (8.5-10.1); Chloride 95 mmol/L (98-107); Estimated GFR 97.26 (mL/min/1.73m2); Glucose 248 mg/dL (74-106); Lipase 43 U/L (16-77); Magnesium 1.7 mg/dL (1.8-2.4); Potassium 3.4 mmol/L (3.5-5.1); Sodium 134 mmol/L (136-145); Total Protein 7.6 g/dL (6.4-8.2); Troponin I < 50 ng/L (<or=60)
[2022-10-05] MEDS: HYDROmorphone 2 MG/ML SYR 1 MG IVP (06:47)
--- NOTE | 2022-10-05 07:00 | DI.US_ITS ---
Exam(s) US ABDOMEN LIMITED EXAM: US ABDOMEN LIMITED CLINICAL HISTORY: right upper abdominal pain TECHNIQUE: Ultrasound abdomen performed using standard protocol. COMPARISON: US US LOWER EXTREMITY VENOUS LT from 09/06/[address] CHEST/ABD/PEL W from 10/03/2022 FINDINGS: There is no ascites evident. LIVER: There are no hepatic lesions evident nor dilatation of intrahepatic ducts. GALLBLADDER/BILIARY: There are no gallstones. No gallbladder wall edema nor pericholecystic fluid. The common hepatic duct isnot dilated, measuring 3-4mm at the level of ana hepatis. PANCREAS: There is no evidence of pancreatic mass nor dilatation of the pancreatic duct. RIGHT KIDNEY:No evidence of solid mass, calculus, nor hydronephrosis. No cortical cysts evident. Other: Proximal stomach wall appears thickened. IMPRESSION: 1. No evidence of cholelithiasis nor dilatation of the biliary tree. 2. Incidentally noted is thickening the gastric wall. Given this finding on ultrasound plus the rena earance of the lower esophagus-proximal stomach on the recent CT scan, endoscopy is recommended rule out inflammatory versus neoplastic process. 3. There is no ascites. DATA REPOSITORY:
--- NOTE | 2022-10-05 08:19 | ED.PROG_ITS ---
Date of service: 10/05/22 Time of Service: 08:00 Medical Decision Making 0800 --please see Dr. Mera's note for initial presentation, exam and plan. Case endorsed to follow-up on ultrasound and if reassuring and patient able to tolerate p.o., will plan for discharge home. Patient is a 37-year-old female with a history of type 2 diabetes, diabetic gastroparesis, cannabinoid hyperemesis syndrome, irritable bowel syndrome, anxiety and depression who presents with nausea and vomiting for the past 2 weeks. Of note, this is patient's fourth visit in the last month. She was admitted in the end of August for diabetic toe ulcer which was treated with antibiotics. She was last seen here 2 days ago and had a CT abdomen and pelvis which was unremarkable and she was referred for outpatient gallbladder ultrasound. Labs reviewed and noted white blood cell count of 13.91 which has been downtrending over the last few visits. Glucose 248 with no signs of acidosis. Magnesium 1.7, will replete. Troponin and lipase negative. Urine test negative. 0920 --ultrasound reviewed and notes IMPRESSION: 1.? No evidence of cholelithiasis nor dilatation of the biliary tree.? 2.? Incidentally noted is thickening the gastric wall.? Given this finding on ultrasound plus the appearance of the lower esophagus-proximal stomach on the recent CT scan, endoscopy is recommended rule out inflammatory versus neoplastic process. 3.? There is no ascites. Patient is requesting to go home. She was reassessed at bedside and appears comfortable. She denies any nausea or pain and was able to tolerate a p.o. challenge without any further nausea or vomiting. Results of ultrasound discussed with patient. Advised to follow-up with general surgery for reevaluation and for possible endoscopy. Discussed that these findings on ultrasound may be secondary to her chronic vomiting but may need further reassessment. She is requesting additional Phenergan suppository. Patient placed on general surgery follow-up list. Usual and customary return precautions given prior to discharge. Medical Records Medical records reviewed: Yes I reviewed the patient's medical records. Medical records narrative: 10/03/22 CT CHEST/ABD/PEL W -- [facility] CLINICAL HISTORY: ? ruq abd pain,n/v/d,r/o cholecystitis/colitis ? TECHNIQUE:? Imaging Protocol: Axial computed tomography images with coronal and sagittal reformatted images were created and reviewed CONTRAST MATERIAL:? Intravenous: Omnipaque 350 contrast volume:100 mL Oral: No COMPARISON:? CT CT ABDOMEN ? PELVIS W from 01/31/2022 FINDINGS: CHEST: Tracheobronchial tree: Patent where visualized. Pulmonary parenchyma: No consolidation or dominant measurable mass. No architectural distortion. Visualized thyroid gland: Unremarkable. Mediastinum and [place]: No dominant adenopathy or fluid collection. There is mild thickening of the distal 2/3 of the wall of the esophagus.? Pleura: No effusion or pneumothorax. Heart: The heart is not dilated. No coronary artery calcifications are seen. No pericardial effusion. Pulmonary arteries: No large central pulmonary embolus is identified.? The segmental and subsegmental pulmonary arteries are poorly opacified.? Aorta: Thoracic aorta non-dilated. Lymph nodes: Within normal limits. Soft tissues: Unremarkable.? Bones:Within normal limits for the patient's age.? ABDOMEN: Liver: Normal density. No measurable mass. Portal, Superior Mesenteric, and Splenic Veins: Unremarkable.? Gallbladder and Biliary Tract: No radiodense calculus or dilation. Pancreas: Normal density, no abnormal calcifications or inflammatory process. Spleen: Normal. Adrenals: No masses seen. Kidneys: Normal size, contour and axis. There is a 3 mm nonobstructing stone in the lower pole of the left kidney.? There is no hydronephrosis.? No masses seen. Abdominal Aorta: Abdominal portion non-dilated. Bowel: There is no evidence of bowel obstruction.? There is mild wall thickening seen in the proximal 2/3 of the small bowel which may reflect an enteritis.? Appendix is unremarkable. Peritoneal Cavity: No ascites, collection or mesenteric inflammatory response.? No free air.? Lymph Nodes: Within normal limits. Bones: Within normal limits for the patient's age.? Soft Tissues: Unremarkable. PELVIS: Bladder: Symmetric distention, no gross wall thickening. Reproductive Organs: Unremarkable as visualized. Lymph Nodes: Within normal limits. Bones: Within normal limits. IMPRESSION: 1. There is diffuse thickening of the distal 2/3 of the esophagus.? Infectious or inflammatory esophagitis should be considered.? Please correlate clinically. 2. No focal consolidating infiltrates.? 3. Findings suspicious for an acute enteritis.? Imaging Data Radiologic Study: Radiologist's impression: US ABDOMEN LIMITED CLINICAL HISTORY:? right upper abdominal pain TECHNIQUE:? Ultrasound abdomen performed using standard protocol. COMPARISON:? US US LOWER EXTREMITY VENOUS LT from 09/06/[address] CHEST/ABD/PEL W from 10/03/2022 FINDINGS: There is no ascites evident. LIVER: There are no hepatic lesions evident nor dilatation of intrahepatic ducts. GALLBLADDER/BILIARY: There are no gallstones. No gallbladder wall edema nor pericholecystic fluid. The common hepatic duct isnot dilated, measuring 3-4mm at the level of ana hepatis. PANCREAS: There is no evidence of pancreatic mass nor dilatation of the pancreatic duct. RIGHT KIDNEY:No evidence of solid mass, calculus, nor hydronephrosis. No cortical cysts evident. Other: Proximal stomach wall appears thickened. IMPRESSION: 1.? No evidence of cholelithiasis nor dilatation of the biliary tree.? 2.? Incidentally noted is thickening the gastric wall.? Given this finding on ultrasound plus the appearance of the lower esophagus-proximal stomach on the recent CT scan, endoscopy is recommended rule out inflammatory versus neoplastic process. 3.? There is no ascites. Lab Data Lab results reviewed: Yes I reviewed the patient's lab results. Labs: Laboratory Tests Range/Units 10/05/22 10/05/22 10/05/22 05:25 05:25 05:25 WBC (4.4-10.8) 10^3/uL 13.91 H RBC (3.93-5.22) 10^6/uL 5.18 Hgb (11.2-15.7) g/dL 16.2 H Hct (36.0-46.0) % 45.6 MCV (80-95) fL 88 MCH (27.0-33.0) pg 31.3 MCHC (32.0-36.0) % 35.5 RDW (11.7-14.6) % 12.4 Plt Count (130-400) 10^3/uL 430 H MPV (8.0-11.0) fL 8.7 Immature Gran % 0.4 Neutrophils % 69.5 Lymphocytes % 20.5 Monocytes % 8.6 Eosinophils % 0.6 Basophils % 0.4 Nucleated RBC % (0.0-0.3) % 0.0 Absolute Neutrophils (1.2-6.7) 10^3/uL 9.67 H Absolute Lymphocytes (1.2-3.4) 10^3/uL 2.85 Absolute Monocytes (0.1-0.8) 10^3/uL 1.20 H Absolute Eosinophils (0.0-0.7) 10^3/uL 0.08 Absolute Basophils (0.0-0.2) 10^3/uL 0.06 VBG pH (7.31-7.41) 7.43 H VBG pCO2 (41-51) mmHg 50 VBG pO2 mmHg 25 VBG HCO3 (23-28) mmol/L 33 H VBG Total CO2 (24-29) mmol/L 29 VBG O2 Saturation % 52 VBG Base Excess (-2-3) mmol/L 9 H Sodium (136-145) mmol/L 134 L Potassium (3.5-5.1) mmol/L 3.4 L Chloride (98-107) mmol/L 95 L Carbon Dioxide (21.0-32.0) mmol/L 32.7 H Anion Gap (3-11) mmol/L 6.3 BUN (7-18) mg/dL 11 Creatinine (0.55-1.02) mg/dL 0.8 Est GFR (CKD-EPI 2020) (mL/min/1.73m2) 97.26 Glucose (74-106) mg/dL 248 H Calcium (8.5-10.1) mg/dL 9.3 Magnesium (1.8-2.4) mg/dL 1.7 L Total Bilirubin (0.2-1.0) mg/dL 0.5 Conjugated Bilirubin (0.0-0.2) mg/dL 0.2 AST (15-37) U/L 13 L ALT (14-59) U/L 26 Alkaline Phosphatase (46-116) U/L 88 Troponin I (<or=60) ng/L < 50 Total Protein (6.4-8.2) g/dL 7.6 Albumin (3.4-5.0) g/dL 3.7 Lipase (16-77) U/L 43 Urine Color (Yellow) Urine Clarity (Clear) Urine pH (5-8) Ur Specific [place] (1.005-1.025) Urine Protein (Negative) mg/dL Urine Ketones (Negative) mg/dL Urine Blood (Negative) Urine Nitrite (Negative) Urine Bilirubin (Negative) Urine Urobilinogen (Up to 0.2) mg/dL Ur Leukocyte Esterase (Negative) Urine RBC (0-2) HPF Urine WBC (0-5) HPF Ur Epithelial Cells (Negative) HPF Urine Crystals (Negative) HPF Urine Bacteria (Negative) HPF Urine Casts (Negative) LPF Urine Mucus (Negative) Ur Culture Indicated? Urine Glucose (Negative) mg/dL Range/Units 10/05/22 08:26 WBC (4.4-10.8) 10^3/uL RBC (3.93-5.22) 10^6/uL Hgb (11.2-15.7) g/dL Hct (36.0-46.0) % MCV (80-95) fL MCH (27.0-33.0) pg MCHC (32.0-36.0) % RDW (11.7-14.6) % Plt Count (130-400) 10^3/uL MPV (8.0-11.0) fL Immature Gran % Neutrophils % Lymphocytes % Monocytes % Eosinophils % Basophils % Nucleated RBC % (0.0-0.3) % Absolute Neutrophils (1.2-6.7) 10^3/uL Absolute Lymphocytes (1.2-3.4) 10^3/uL Absolute Monocytes (0.1-0.8) 10^3/uL Absolute Eosinophils (0.0-0.7) 10^3/uL Absolute Basophils (0.0-0.2) 10^3/uL VBG pH (7.31-7.41) VBG pCO2 (41-51) mmHg VBG pO2 mmHg VBG HCO3 (23-28) mmol/L VBG Total CO2 (24-29) mmol/L VBG O2 Saturation % VBG Base Excess (-2-3) mmol/L Sodium (136-145) mmol/L Potassium (3.5-5.1) mmol/L Chloride (98-107) mmol/L Carbon Dioxide (21.0-32.0) mmol/L Anion Gap (3-11) mmol/L BUN (7-18) mg/dL Creatinine (0.55-1.02) mg/dL Est GFR (CKD-EPI 2020) (mL/min/1.73m2) Glucose (74-106) mg/dL Calcium (8.5-10.1) mg/dL Magnesium (1.8-2.4) mg/dL Total Bilirubin (0.2-1.0) mg/dL Conjugated Bilirubin (0.0-0.2) mg/dL AST (15-37) U/L ALT (14-59) U/L Alkaline Phosphatase (46-116) U/L Troponin I (<or=60) ng/L Total Protein (6.4-8.2) g/dL Albumin (3.4-5.0) g/dL Lipase (16-77) U/L Urine Color (Yellow) Yellow Urine Clarity (Clear) Sl Cloudy Urine pH (5-8) 7.0 Ur Specific [place] (1.005-1.025) 1.020 Urine Protein (Negative) mg/dL 30 H Urine Ketones (Negative) mg/dL >=160 H Urine Blood (Negative) Negative Urine Nitrite (Negative) Negative Urine Bilirubin (Negative) Small H Urine Urobilinogen (Up to 0.2) mg/dL 1.0 H Ur Leukocyte Esterase (Negative) Negative Urine RBC (0-2) HPF Negative Urine WBC (0-5) HPF Negative Ur Epithelial Cells (Negative) HPF Many Urine Crystals (Negative) HPF Negative Urine Bacteria (Negative) HPF Few Urine Casts (Negative) LPF 0-2 Hyaline Urine Mucus (Negative) Trace Ur Culture Indicated? No Urine Glucose (Negative) mg/dL 500 H Sign Out Sign Out Data: Sign Out Comment: chronic n/v, seen last week with ct showing nonspecific inflammation of the esophagus, pending ruq u/s, feels improved after droperidol Last updated by Carrington Mera MD at 10/05/22 06:44 Discharge Plan Disposition Patient Disposition: Home Condition: Improving Discharge Details Clinical Impression: Chronic vomiting Primary Care Provider: Unknown,Unknown ED Provider: Irene Madden Home Meds and New Rx's Prescriptions: New promethazine 25 mg suppository 25 mg MA Q6H PRN (Reason: nausea and vomiting) Qty: 12 0RF Continued gabapentin 300 mg Tablet 300 - 900 mg PO DIRECTED Rx Instructions: 300 qam 900 hs lorazepam 0.5 mg Tablet 0.5 mg PO DAILY insulin aspart U-100 [Novolog FlexPen U-100 Insulin] 100 unit/mL (3 mL) insulin pen 12 unit SUBCUT TID Patient Comments: INJECT 9 UNITS SUBCUTANEOUSLY THREE TIMES DAILY WITH MEALS insulin glargine [Lantus Solostar U-100 Insulin] 100 unit/mL (3 mL) insulin pen 40 unit SUBCUT HS Patient Comments: INJECT 40 UNITS SUBCUTANEOUSLY AT BEDTIME promethazine 25 mg tablet 25 mg PO TID PRN (Reason: nausea and vomiting) Qty: 7 0RF Patient Comments: not taking nystatin 100,000 unit/gram Cream 1 applic TOPICAL DAILY Patient Comments: not taking lidocaine [Lidoderm] 5 % adhesive patch,medicated 1 patch topical DIRECTED Patient Comments: PLACE 1 PATCH ONTO THE SKIN DAILY. PATCHE(S) MAY REMAIN IN PLACE FOR UP TO 12 HOURS IN ANY 24-HOUR PERIOD omeprazole 20 mg Capsule,Delayed Release(Dr/Ec) 20 mg PO DAILY Patient Comments: not taking nicotine 7 mg/24 hr patch 24 hour 1 patch topical DAILY Patient Comments: APPLY 1 PATCH DAILY TOPICALLY TO SKIN WITHOUT HAIR. APPLY TO A DIFFERENT SITE AT THE SAME TIME EACH DAY, AFTER COMPLETION OF 14MG PATCHES ondansetron 4 mg tablet,disintegrating 4 mg PO Q8H PRN (Reason: nausea and vomiting) metoclopramide HCl [Reglan] 10 mg tablet 10 mg PO HS PRN promethazine 25 mg suppository 25 mg MA ONCE PRN Rx Instructions: may repeat once in 12 hours (DME) Dexcom G6 Sensor Device See Rx Instructions .Route Qty: 6 0RF Rx Instructions: As directed Jardiance 10 mg Tablet 10 mg PO DAILY Qty: 30 0RF tramadol 50 mg Tablet 50 mg PO Q6H PRN PRNQty: 30 0RF promethazine 25 mg suppository 25 mg MA Q6H PRN (Reason: nausea and vomiting) Qty: 12 0RF sucralfate [Carafate] 1 gram tablet 1 gm PO QACHS Qty: 14 0RF Discharge Instructions Instructions: Acute Nausea and Vomiting (ED), Cyclic Vomiting Syndrome (ED) Additional Instructions: Your blood tests today are reassuring and show no evidence of acute concerning findings. Your potassium and magnesium were slightly low which can be seen in the setting of vomiting and decreased oral intake. You can supplement these minerals in the diet with foods such as bananas, spinach, kale, tomatoes, etc. Drink plenty of fluids and get plenty of rest. A prescription for additional Phenergan suppository has been sent electronically to your pharmacy to take as needed and directed for nausea and vomiting. You have been placed on general surgery's follow-up list for reevaluation and for consideration for upper endoscopy for further evaluation of the thickening of your esophagus and stomach wall noted on CAT scan recently and ultrasound today. Follow-up with your primary care doctor in 1 week. Return to the emergency department with any worsening or new concerning symptoms such as fever, persistent vomiting, abdominal pain or any other concerns. Referrals: Tonja Flynn DO [OSTEOPATHIC DOCTOR] - Discharge Data Discharge Physician: Irene Madden
[2022-10-05] MEDS: MAGNESIUM SULFATE 1 GM/100 ML BAG IVPB (08:23)
[2022-10-05 08:32] LABS: Bilirubin Small (Negative); Blood Negative (Negative); Clarity Sl Cloudy (Clear); Glucose 500 mg/dL (Negative); Ketones >=160 mg/dL (Negative); Leukocyte Esterase Negative (Negative); Nitrite Negative (Negative)
[2022-10-05 08:40] LABS: Epithelial Cells Many HPF (Negative); RBC Negative HPF (0-2); WBC Negative HPF (0-5)
[2022-10-05 08:41] LABS: Bacteria Few HPF (Negative); C & S Indicated? No; Casts 0-2 Hyaline LPF (Negative); Crystals Negative HPF (Negative); Mucus Trace (Negative)
--- NOTE | 2022-10-05 09:04 | NUR.NOTE ---
able to tolerate PO intake
[2022-10-05 09:08] VITALS: BP 137/89; PULSE 100; RESP 18; O2SAT 98
== END 2022-10-05 09:52 | disposition home or self-care (01) ==
PROVIDERS: Emergency Medicine; Emergency Provider Physician Assistant
DX: R11.2 Nausea with vomiting, unspecified (principal); E11.9 Type 2 diabetes mellitus without complications; R10.11 Right upper quadrant pain
CPT/HCPCS: 80053; 81025; 82805; 83690; 96361; 96365; 96375; 99284; 76705; 81003; 81015; 82248; 83735; 84484; 85025; 99283; J1170; J1790; J3475

== ENCOUNTER 2022-10-27 09:42 | Day surgery (SDC) | payer BC, MEDICAID, SELFPAY ==
--- NOTE | 2022-10-27 07:11 | PGE_ITS ---
Date of Service Date of service: 10/27/22 Time of Service: 11:03 Assessment and Plan Assessment and plan (1) Chronic nausea: Status: Acute Assessment and plan: Cristy is doing well she has no concerns. She understands the risks and complications. Ms Luo is a pleasant 37-year-old female who was referred by the emergency department to discuss an upper endoscopy.? I suspect that her chronic nausea and vomiting is from her gastroparesis which is not being well treated with the once a day Reglan.? I also think that the abnormalities on the CT scan and ultrasound are from her chronic vomiting, having said that its not unreasonable to do an upper endoscopy to make sure that there is not anything else going on like ulcers.? We discussed the procedure in detail as well as the risks, benefits and complications.? Risks, benefits and complications have been reviewed. Complications include but are not limited to bleeding, pain, perforation, sore throat, aspiration, and adverse reaction to the medications.? Questions were entertained and answered to their satisfaction and they wished to proceed. No guarantees were given or implied. (2) Chronic vomiting: Status: Acute Subjective Subjective Interval history since last seen: Cristy was seen in [facility] prior to her procedure. She has increased her reglan and had no nausea yesterday before dinner. She is hungry this morning. She has no new concerns since I saw her on Tuesday. Exam Resp Effort & Inspection: normal respiratory effort Auscultation: clear to auscultation bilaterally Cardio Rate: regular rate Rhythm: regular rhythm GI Inspection: normal to inspection Palpation: soft and nontender Time Spent with Patient Time Spent with Patient: <25 minutes Time was spent: counseling the patient
--- NOTE | 2022-10-27 07:13 | PDOC.DSDIS_ITS ---
Date of service: 10/27/22 Time of Service: 11:43 Discharge Plan Disposition Patient Disposition: Home Condition: Stable Discharge Details Reason For Visit: Chronic Nausea and Vomiting Attending Provider: Milvia Collier Home Meds and New Rx's Prescriptions: New omeprazole 40 mg capsule,delayed release(DR/EC) 40 mg PO DAILY Qty: 30 0RF metoclopramide HCl [Reglan] 10 mg tablet 10 mg PO Q6H 30 Days Qty: 120 0RF Rx Instructions: take 30 minutes before meals and at bedtime Continued gabapentin 300 mg Tablet 300 - 900 mg PO DIRECTED Rx Instructions: 300 qam 900 hs lorazepam 0.5 mg Tablet 0.5 mg PO DAILY insulin aspart U-100 [Novolog FlexPen U-100 Insulin] 100 unit/mL (3 mL) insulin pen 12 unit SUBCUT TID Patient Comments: INJECT 9 UNITS SUBCUTANEOUSLY THREE TIMES DAILY WITH MEALS insulin glargine [Lantus Solostar U-100 Insulin] 100 unit/mL (3 mL) insulin pen 40 unit SUBCUT HS Patient Comments: INJECT 40 UNITS SUBCUTANEOUSLY AT BEDTIME promethazine 25 mg tablet 25 mg PO TID PRN (Reason: nausea and vomiting) Qty: 7 0RF Patient Comments: not taking lidocaine [Lidoderm] 5 % adhesive patch,medicated 1 patch topical DIRECTED Patient Comments: PLACE 1 PATCH ONTO THE SKIN DAILY. PATCHE(S) MAY REMAIN IN PLACE FOR UP TO 12 HOURS IN ANY 24-HOUR PERIOD nicotine 7 mg/24 hr patch 24 hour 1 patch topical DAILY Patient Comments: APPLY 1 PATCH DAILY TOPICALLY TO SKIN WITHOUT HAIR. APPLY TO A DIFFERENT SITE AT THE SAME TIME EACH DAY, AFTER COMPLETION OF 14MG PATCHES ondansetron 4 mg tablet,disintegrating 4 mg PO Q8H PRN (Reason: nausea and vomiting) metoclopramide HCl [Reglan] 10 mg tablet 10 mg PO HS PRN (DME) Dexcom G6 Sensor Device See Rx Instructions .Route Qty: 6 0RF Rx Instructions: As directed Jardiance 10 mg Tablet 10 mg PO DAILY Qty: 30 0RF tramadol 50 mg Tablet 50 mg PO Q6H PRN PRNQty: 30 0RF promethazine 25 mg suppository 25 mg [place] Q6H PRN (Reason: nausea and vomiting) Qty: 12 0RF Discontinued omeprazole 20 mg Capsule,Delayed Release(Dr/Ec) 20 mg PO BID Patient Comments: not taking sucralfate [Carafate] 1 gram tablet 1 gm PO QACHS Qty: 14 0RF Discharge Instructions Instructions: Esophagitis (DC) Additional Instructions: Findings: inflammation of the small intestine and esophagus Medication: 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 Do not drive or operate dangerous equipment b. Do not drink alcohol beverages or use any recreational drugs for the first 24 hours or while taking pain medications. The medications in your body may have a reaction that can be dangerous. c. Do not make any important decisions or sign any important papers 1. Generally there are no restrictions on your activity after a day or so has gone by, but you may feel a bit fatigued for a few days. 2. After you arrive home you may have a light meal and return to a normal diet as you can tolerate it without feeling sick to your stomach. 3. After surgery, you may feel pain or discomfort. This should be only transient, but if it persists please contact your doctor. 4. If there are any questions regarding the findings of your procedure, please feel free to contact your doctor. 6. If you are unable to contact your doctor with a problem, contact the hospital at [phone]. 7. Continue all your regular medications unless directed otherwise. I understand the above instructions and have no questions. Signature of Patient or Responsible Adult Escort Date/Time Name of Responsible Adult Escort Signature of Nurse Date/Time Referrals: Milvia Collier MD [ [facility] STAFF PHYSICIAN] - 11/09/22 9:00 am Activity:: Activity as Tolerated Diet:: As Tolerated Discharge Orders Discharge Orders: Discharge Order (Routine); Ordered 10/27/22 Ordered By: Milvia Collier DS: Diagnosis Discharge Diagnosis (1) Chronic nausea: Status: Acute Asessment and Plan: Patient is seen and examined after their endoscopy. Patient has minimal sore throat. They have been able to tolerate liquids. They do not have any Nausea or Vomiting. They are not having any chest pain or shortness of breath. They have been able to pass gas and are not having any abdominal pain or distention. they have not vomited any blood. The vital signs have been stable-see nursing notes. We discussed findings on their endoscopy We reviewed the importance of lifestyle modifications- see diet recommendations We reviewed any new medications that the patient may be prescribed- see medicine reconciliation. Patient will either be sent a letter with the biopsy results or follow up in the office- see discharge instructions Patient was given explicit instructions for emergency follow up post endoscopy- see discharge instructions Patient verbalized understanding and was discharged in stable and satisfactory condition. See nursing notes. (2) Chronic vomiting: Status: Acute
--- NOTE | 2022-10-27 07:13 | W.PM.ENDDOP ---
Date of service: 10/27/22 Time of Service: 11:20 Endoscopy Report DATE OF PROCEDURE: 10/27/22 PRE-OP DIAGNOSIS: Chronic Nausea and Vomiting POST-OP DIAGNOSIS: same (and duodenitis and esophagitis) PROCEDURE: EGD with biopsies SURGEON: Milvia Collier ANESTHESIA TYPE: General:No Airway ESTIMATED BLOOD LOSS: 3 PATHOLOGY: other (duodenal bx, stomach bx and GE junction bx) COMPLICATIONS: None DISPOSITION: same day INDICATIONS: Ms Luo is a pleasant 37-year-old female who was referred by the emergency department to discuss an upper endoscopy.? I suspect that her chronic nausea and vomiting is from her gastroparesis which is not being well treated with the once a day Reglan.? I also think that the abnormalities on the CT scan and ultrasound are from her chronic vomiting, having said that its not unreasonable to do an upper endoscopy to make sure that there is not anything else going on like ulcers.? We discussed the procedure in detail as well as the risks, benefits and complications.? Risks, benefits and complications have been reviewed. Complications include but are not limited to bleeding, pain, perforation, sore throat, aspiration, and adverse reaction to the medications.? Questions were entertained and answered to their satisfaction and they wished to proceed. No guarantees were given or implied. FINDINGS: mild duodenitis, reflux esophagitis PROCEDURE DESCRIPTION: After informed consent was obtained the patient was take to the procedure room and placed in a supine position. Monitors were applied and a time out was done. The patients name, date of , procedure type, allergies to medications and metal in their body was reviewed. A bite block was placed and the patient was sedated. Once sedated and comfortable the gastroscope was advanced through the oropharynx which was grossly normal into the esophagus. The proximal and mid-esophagus were normal. In the distal esophagus there was inflammation noted. The scope was advanced into the stomach and through the pylorus into the 3rd portion of the duodenum. The duodenum was noted to bhave some mild inflammation. Biopsies were done. The scope was retracted back into the stomach and biopsies were done to rule out H. pylori. There were no ulcers. The scope was retroflexed. The cardia and fundus were noted to be normal. There was no hiatal hernia noted. The scope was retracted back into the esophagus and biopsies were done of the GE junction to rule out Noyola's. The Z line was regular. The GE junction was at 32 cm. The scope was removed and the patient was woken up and taken back to [facility] in stable condition.
[2022-10-27 09:59] VITALS: BP 110/84; PULSE 112; RESP 16; TEMP 36.1; O2SAT 100
[2022-10-27] MEDS: Lactated Ringers 1,000 ML 80 ML IV (10:14)
--- NOTE | 2022-10-27 10:49 | ANES.PREOP_ITS ---
General Info Date of Service Date Performed: 10/27/22 Height: 5 ft 4 in Weight: 84.2 kg Body Mass Index (BMI): 31.8 Surgical Procedure: Operation Date: 10/27/22 11:05 Proposed Procedure Side Surgeon p Gastroscopy Milvia Collier MD Meds Allergies and Home Medications Allergies Allergy/AdvReac Type Severity Reaction Status Date / Time ibuprofen [From Advil] Allergy Severe throat Verified 10/03/22 00:31 closes pomegranate Allergy Severe Anaphylaxis Verified 10/03/22 00:31 citalopram AdvReac Severe Bodily harm Verified 10/03/22 00:31 Home Medication Medication Instructions Recorded gabapentin 300 mg tablet 300 - 900 mg PO DIRECTED 01/24/21 lorazepam 0.5 mg tablet 0.5 mg PO DAILY 01/24/21 insulin aspart U-100 100 unit/mL 12 unit subcut TID 01/14/22 (3 mL) subcutaneous pen (Novolog FlexPen U-100 Insulin aspart) insulin glargine 100 unit/mL (3 40 unit subcut HS 01/14/22 mL) subcutaneous pen (Lantus Solostar U-100 Insulin) promethazine 25 mg tablet 25 mg PO TID PRN nausea and 02/06/22 vomiting #7 tabs blood-glucose sensor (Dexcom G6 #6 ea 05/03/22 Sensor device) lidocaine 5 % topical patch 1 patch topical DIRECTED 05/25/22 (Lidoderm) metoclopramide HCl 10 mg tablet 10 mg PO HS PRN 05/25/22 (Reglan) nicotine 7 mg/24 hr daily 1 patch topical DAILY 05/25/22 transdermal patch omeprazole 20 mg capsule,delayed 20 mg PO BID 05/25/22 release ondansetron 4 mg disintegrating 4 mg PO Q8H PRN nausea and vomiting 05/25/22 tablet empagliflozin 10 mg tablet 10 mg PO DAILY #30 tabs 08/28/22 (Jardiance) tramadol 50 mg tablet 50 mg PO Q6H PRN PRN #30 tabs 08/28/22 sucralfate 1 gram tablet (Carafate) 1 gm PO QACHS #14 tabs 10/03/22 promethazine 25 mg rectal [address] Q6H PRN nausea and 10/05/22 suppository vomiting #12 ea Current Visit Medications: Current Medications Generic Name Dose Route Start Last Admin Trade Name Freq PRN Reason Stop Dose Admin Ringer's Solution 1,000 mls @ 80 mls/hr 10/27/22 06:00 10/27/22 10:14 IV 11/25/22 23:59 80 mls/hr INFUSION ROXANA Administration IV Miscellaneous Supplies 1 each 10/27/22 06:00 Iv Access IV 11/25/22 23:59 DIRECTED ROXANA Ondansetron HCl 4 mg 10/27/22 07:14 Ondansetron 4 Mg/2 Ml Vial IVP 11/26/22 07:13 Q4H PRN PRN Nausea / Vomiting Sodium Chloride 0 ml 10/27/22 06:00 Normal Saline Flush 10 Ml Syr IV 11/25/22 23:59 PRN PRN Sodium Chloride 0 ml 10/27/22 06:00 Normal Saline 10 Ml Vial IJ 11/25/22 23:59 DIRECTED PRN Sterile Water 0 ml 10/27/22 06:00 Water,Injection,Sterile 10 Ml Vial IJ 11/25/22 23:59 DIRECTED PRN PFSH Active Problems Active Problems: Problem Status Onset Code Chronic nausea R11.0 Nausea and vomiting R11.2 Chest pain, unspecified R07.9 Sinus tachycardia R00.0 Chronic vomiting R11.10 Right upper quadrant abdominal pain R10.11 Calf pain M79.669 Cellulitis of foot L03.119 Diabetic toe ulcer E11.621, L97.509 Abscess L02.91 Vomiting R11.10 Gastroparesis K31.84 Vomiting R11.10 Acute dehydration E86.0 Nausea and vomiting R11.2 IDDM (insulin dependent diabetes mellitus) Tobacco abuse Z72.0 Cannabinoid hyperemesis syndrome R11.2, F12.90 Upper GI bleeding K92.2 UTI (urinary tract infection) N39.0 Diabetic foot ulcer associated with secondary diabetes mellitus E08.621, L97.509 Hypokalemia E87.6 Type 2 diabetes mellitus E11.9 Type 2 diabetes mellitus with diabetic neuropathy E11.40 Ulcer of other part of foot L97.509 Amputation of toe of left foot S98.132A Infection of toe L08.9 Osteomyelitis M86.9 Medical History Medical History Anxiety and depression Back pain Cellulitis of third toe, left Chest pain r/t Anxiety Diabetes Type 1, per patient she said she was told she had diabetes type 2. Diabetic neuropathy History of cellulitis toe History of kidney stones History of osteomyelitis IBS (irritable bowel syndrome) Peripheral neuropathy Suicide attempt Surgical History Surgical History Amputation of left great toe H/O tubal ligation History of amputation 2nd toe left foot Tobacco Smoking/Tobacco Use Status: Current every day Tobacco Type: cigarettes Smoking cigarettes per day: 10 Alcohol Alcohol Intake: current Alcohol intake frequency: holidays/special occasions only Substance Use Substance use: Daily Substance use type: marijuana Details: last marijuana was last week Vital Signs and Lab Results Vital Signs Most Recent Vital Signs in EMR: Most Recent Vital Signs Temp Pulse Resp BP Pulse Ox 36.1 C L 112 H 16 110/84 100 10/27/22 09:59 10/27/22 09:59 10/27/22 09:59 10/27/22 09:59 10/27/22 09:59 Lab Results Blood Type / Crossmatch: No Data to Display Complete Blood Count: White Blood Count 13.91 10^3/uL (4.4-10.8) H 10/05/22 05:25 Red Blood Count 5.18 10^6/uL (3.93-5.22) 10/05/22 05:25 Hemoglobin 16.2 g/dL (11.2-15.7) H 10/05/22 05:25 Hematocrit 45.6 % (36.0-46.0) 10/05/22 05:25 Platelet Count 430 10^3/uL (130-400) H 10/05/22 05:25 Complete Metabolic Panel: Sodium 134 mmol/L (136-145) L 10/05/22 05:25 Potassium 3.4 mmol/L (3.5-5.1) L 10/05/22 05:25 Chloride 95 mmol/L (98-107) L 10/05/22 05:25 Carbon Dioxide 32.7 mmol/L (21.0-32.0) H 10/05/22 05:25 BUN 11 mg/dL (7-18) 10/05/22 05:25 Creatinine 0.8 mg/dL (0.55-1.02) 10/05/22 05:25 Est GFR (CKD-EPI 2020) 97.26 (mL/min/1.73m2) 10/05/22 05:25 Magnesium 1.7 mg/dL (1.8-2.4) L 10/05/22 05:25 Calcium 9.3 mg/dL (8.5-10.1) 10/05/22 05:25 Albumin 3.7 g/dL (3.4-5.0) 10/05/22 05:25 Glucose 248 mg/dL (74-106) H 10/05/22 05:25 Liver Function Panel: Alanine Aminotransferase (ALT/SGPT) 26 U/L (14-59) 10/05/22 05: 25 Aspartate Amino Transf (AST/SGOT) 13 U/L (15-37) L 10/05/22 05: 25 Coagulation Panel: No Data to Display Cardiac Panel: Troponin I < 50 ng/L (<or=60) 10/05/22 NT-Pro-B Natriuret Pep 170 pg/mL (<300) 10/03/22 Arterial Blood Gas: No Data to Display Venous Blood Gas: Venous Blood pH 7.43 (7.31-7.41) H 10/05/22 05:25 Venous Blood Partial Pressure O2 25 mmHg 10/05/22 05:25 Venous Blood Partial Pressure CO2 50 mmHg (41-51) 10/05/22 05:2 5 Venous Blood Oxygen Saturation 52 % 10/05/22 05:25 Venous Blood HCO3 33 mmol/L (23-28) H 10/05/22 05:25 Venous Blood Base Excess 9 mmol/L (-2-3) H 10/05/22 05:25 Venous Blood Total Carbon Dioxide 29 mmol/L (24-29) 10/05/22 05 :25 Pancreas Panel: Lipase 43 U/L (16-77) 10/05/22 05:25 Thyroid Panel: No Data to Display Infectious Disease: Coronavirus (COVID-19)(PCR) Negative (Negative) 10/03/22 00:45 Coronavirus 2019 Source Nasopharynx 10/03/22 00:45 Influenza Virus Type A (PCR) Negative (Negative) 10/03/22 00:4 5 Influenza Virus Type B (PCR) Negative (Negative) 10/03/22 00:4 5 Respiratory Syncytial Virus (PCR) Negative (Negative) 10/03/22 00:45 Blood Cultures: No Data to Display Toxicology Panel: No Data to Display Panel: Serum HCG, Qualitative Negative 10/01/22 09:37 Imaging and Studies Imaging and Studies Study information below may be from another EMR and interpreted by another provider. Please see original notes in EMR for more complete details. EKG Summary: 04/27: sinus tachy. Anesthesia Assessment and Plan Anesthesia History Personal History: No History of Anesthesia Complications Family History: No Family History of Anesthesia Complications Exercise Tolerance Exercise Tolerance: Metabolic Equivalents>4 Pertinent Negatives Pertinent Negatives: No Symptoms of GERD Cardiac & Pulmonary Exam Cardiac Exam: Normal S1/S2 Heart Sounds Pulmonary Exam: Clear Bilateral Breath Sounds Implantable Cardiac Device Does patient have a Pacemaker or an ICD?: No Airway Exam Known Difficult Airway: No Mallampati Class: 2 Mouth Opening: Normal (> 3cm) Thyromental Distance: Greater than 3 cm Neck Range of Motion: Full ROM Neck Circumference: Normal Teeth Condition: Normal Dentition ASA Classification ASA Score: ASA 3 Emergency Case?: No NPO Status NPO Status: NPO Clears >2 hours, Solids >8 hours Status Status: Negative HCG Anesthesia Plan Resuscitation Status: Full Code Anesthesia Technique: General Anesthesia Airway Planned: Natural Airway Monitors Used: Standard Monitors
[2022-10-27 10:51] VITALS: BMI 31.8
--- NOTE | 2022-10-27 11:15 | STOM_PTH ---
PATIENT: Cristy Luo LOC: [facility] U#:[id number] AGE/SX: 37/F ROOM: RE10/27/[address]: Milvia Collier MD : [id number] BED: DIS: 10/27/2022 SPEC #: [id number] RECD: 10/27/22 12:57 STATUS: SENTHIL REAranza #: [id number] CONOR: 10/27/22 11:[address]: Milvia Collier DEPT: Surgical Specimen RECD BY: Staci Wilburn Tissues: 1 - BIOPSY BOWEL 2 - STOMACH BIOPSY 3 - ESOPHAGUS BIOPSY Procedures: GROSS AND MICRO LEVEL 4 SPECIAL STAIN 1 Comments: [id number]
[2022-10-27 11:24] VITALS: BP 102/69; PULSE 104; RESP 20; TEMP 36.1; O2SAT 98
--- NOTE | 2022-10-27 11:35 | W.ANESPOSTOP ---
Postoperative Evaluation Date, Time and Location Date Performed: 10/27/22 Time Performed: 11:35 Patient Location: Day [facility] Unit Vital Signs Most Recent Imported Vital Signs: Most Recent Vital Signs Temp Pulse Resp BP Pulse Ox 36.1 C L 104 H 20 102/69 98 10/27/22 11:24 10/27/22 11:24 10/27/22 11:24 10/27/22 11:24 10/27/22 11:24 Pain Score Most Recent Pain Score: Most Recent Pain Score Pain Level 0 10/27/22 11:24 Assessment Mental Status: Awake (Alert & Oriented to Patient Baseline) Airway and Respiratory Function: Patent airway with normal (patient baseline) respiratory exam Cardiovascular Function: Hemodynamically Stable Hydration Status: Adequately Hydrated Nausea & Vomiting: No Nausea or Vomiting Pain: Pt. Denies Any Pain Peripheral Nerve Block: Patient did not receive a nerve block
[2022-10-27 11:55] VITALS: BP 124/93; PULSE 107; RESP 20; TEMP 36.2; O2SAT 99
== END 2022-10-27 12:30 | disposition home or self-care (01) ==
PROVIDERS: Visit Provider Surgery
PROC: 0DJ68ZZ Inspection of Stomach, Via Natural or Artificial Opening Endoscopic (ICD-10-PCS; CPT 43235; principal; 2022-10-27 11:00)
DX: R11.2 Nausea with vomiting, unspecified; E11.43 Type 2 diabetes mellitus with diabetic autonomic (poly)neuropathy; K31.84 Gastroparesis; Z79.4 Long term (current) use of insulin; K20.90 Esophagitis, unspecified without bleeding; K29.80 Duodenitis without bleeding; K25.9 Gastric ulcer, unspecified as acute or chronic, without hemorrhage or perforation
CPT/HCPCS: 43239; 88305; 88312

== ENCOUNTER 2023-02-18 14:12 | Emergency (ER) | payer BC, MEDICAID, SELFPAY ==
[2023-02-18] VITALS (16 sets, daily range): BP systolic 113–147; BP diastolic 68–84; PULSE 76–123; RESP 12–23; TEMP 36.7; O2SAT 94–100
--- NOTE | 2023-02-18 14:15 | RT.EKG_ITS ---
APPROVED REPORT Exam: Resting ECG Reason for Exam: n/v Patient Location: E HR:89 bpm ECG Measurements Heart Rate 89 AXIS WA 145 P 67 QRSd 90 QRS 35 QT 367 T 34 QTc 446 Conclusion Sinus arrhythmia...V-rate 63-104, variation>10%
[2023-02-18 14:36] LABS: BE (Venous) 7 mmol/L (-2-3); HCO3 (Venous) 31 mmol/L (23-28); O2 Sat (Venous) 51 %; TCO2 (Venous) 28 mmol/L (24-29); pCO2 (Venous) 49 mmHg (41-51); pH (Venous) 7.42 (7.31-7.41); pO2 (Venous) 27 mmHg
[2023-02-18 14:38] LABS: Abs Immature Grans 0.07 10^3/uL (0.0-0.06); Absolute Basophil Count 0.03 10^3/uL (0.0-0.2); Absolute Lymphocyte Count 1.48 10^3/uL (1.2-3.4); Basophils % 0.2; HCT 43.7 % (36.0-46.0); HGB 15.1 g/dL (11.2-15.7); Immature Grans % 0.4; Lymphocytes % 8.6; MCH 30.8 pg (27.0-33.0); MCHC 34.6 % (32.0-36.0); MCV 89 fL (80-95); MPV 9.3 fL (8.0-11.0); Monocytes % 4.1; Neutrophils % 86.7; Platelet Count 439 10^3/uL (130-400); RBC 4.91 10^6/uL (3.93-5.22); RDW 12.3 % (11.7-14.6); WBC 17.25 10^3/uL (4.4-10.8)
[2023-02-18 14:39] LABS: Absolute Monocyte Count 0.71 10^3/uL (0.1-0.8); Absolute Neutrophil Count 14.96 10^3/uL (1.2-6.7)
[2023-02-18] MEDS: Normal Saline 1,000 ML 1000 ML IV (14:40)
--- NOTE | 2023-02-18 14:40 | ED.GENADUL_ITS ---
Discharge Plan Discharge Details Chief Complaint: Nausea/Vomit/Diar Clinical Impression: Vomiting, Abdominal pain Primary Care Provider: None,None ED Provider: Carrington Mera Home Meds and New Rx's Prescriptions: No Action metoclopramide HCl [Reglan] 10 mg tablet 10 mg PO Q6H 30 Days Qty: 120 5RF Rx Instructions: take 30 minutes before meals and at bedtime omeprazole 40 mg capsule,delayed release(DR/EC) 40 mg PO DAILY Qty: 30 5RF gabapentin 300 mg Tablet 300 - 900 mg PO DIRECTED Rx Instructions: 300 qam 900 hs lorazepam 0.5 mg Tablet 0.5 mg PO DAILY insulin aspart U-100 [Novolog FlexPen U-100 Insulin] 100 unit/mL (3 mL) insuli n pen 12 unit SUBCUT TID Patient Comments: INJECT 9 UNITS SUBCUTANEOUSLY THREE TIMES DAILY WITH MEALS insulin glargine [Lantus Solostar U-100 Insulin] 100 unit/mL (3 mL) insulin pen 40 unit SUBCUT HS Patient Comments: INJECT 40 UNITS SUBCUTANEOUSLY AT BEDTIME promethazine 25 mg tablet 25 mg PO TID PRN (Reason: nausea and vomiting) Qty: 7 0RF Patient Comments: not taking lidocaine [Lidoderm] 5 % adhesive patch,medicated 1 patch topical DIRECTED Patient Comments: PLACE 1 PATCH ONTO THE SKIN DAILY. PATCHE(S) MAY REMAIN IN PLACE FOR UP TO 12 HOURS IN ANY 24-HOUR PERIOD nicotine 7 mg/24 hr patch 24 hour 1 patch topical DAILY Patient Comments: APPLY 1 PATCH DAILY TOPICALLY TO SKIN WITHOUT HAIR. APPLY TO A DIFFERENT SITE AT THE SAME TIME EACH DAY, AFTER COMPLETION OF 14MG PATCHES ondansetron 4 mg tablet,disintegrating 4 mg PO Q8H PRN (Reason: nausea and vomiting) metoclopramide HCl [Reglan] 10 mg tablet 10 mg PO HS PRN (DME) Dexcom G6 Sensor Device See Rx Instructions .Route Qty: 6 0RF Rx Instructions: As directed Jardiance 10 mg Tablet 10 mg PO DAILY Qty: 30 0RF tramadol 50 mg Tablet 50 mg PO Q6H PRN PRNQty: 30 0RF promethazine 25 mg suppository 25 mg GA Q6H PRN (Reason: nausea and vomiting) Qty: 12 0RF Medical Decision Making 37 yo female with hx of gastroperesis, dm, frequent marijuana use, who comes in with cc of n/v and abdominal pain since yesterday. Denies fevers, chills, chest pain, has a mild headache. She denies drug use other then marijuana. She is stable on arrival though is drowsy, no focal deficits, soft abdomen with tenderness in the llq and luq. No guarding. Suspect gastroparesis vs cannabinoid hyperemesis, given her abdominal tenderness will proceed with cbc, cmp, lipase and ct abdomen/pelvis and administer iv fluids, dialudid and droperidol. pt signed out to oncoming provider pending ct results and reassessment Differential Diagnosis Differential Diagnosis: sbo, gastoparesis, diverticulitis ECG Data Attestation: I personally reviewed and interpreted this ECG (s) as follows: Prior ECG tracings: available for review Interpretation: sinus rate of 89, pr 145, no stemi HPI General Mode of arrival: ambulatory . Date/Time Provider Initiated Documentation: 02/18/23 14:13 . Limitations to Documentation: no limitations . Information obtained by: patient . History of Present Illness 37 year old F presents to the emergency department with the chief complaint of nause and vomiting, described as moderate, Patient started experiencing this day(s) (1) and it has been constant. No relieving factors improve symptom(s), No exacerbating factors reported . Patient did receive the following treatments prior to arrival, none Related Data Home Medications Medication Instructions Recorded Confirmed gabapentin 300 mg tablet 300 - 900 mg PO DIRECTED 01/24/21 11/09/22 lorazepam 0.5 mg tablet 0.5 mg PO DAILY 01/24/21 11/09/22 insulin aspart U-100 100 unit/mL 12 unit subcut TID 01/14/22 11/09/22 (3 mL) subcutaneous pen (Novolog FlexPen U-100 Insulin aspart) insulin glargine 100 unit/mL (3 40 unit subcut HS 01/14/22 11/09/22 mL) subcutaneous pen (Lantus Solostar U-100 Insulin) promethazine 25 mg tablet 25 mg PO TID PRN nausea and 02/06/22 11/09/22 vomiting #7 tabs blood-glucose sensor (Dexcom G6 #6 ea 05/03/22 11/09/22 Sensor device) lidocaine 5 % topical patch 1 patch topical DIRECTED 05/25/22 11/09/22 (Lidoderm) metoclopramide HCl 10 mg tablet 10 mg PO HS PRN 05/25/22 11/09/22 (Reglan) nicotine 7 mg/24 hr daily 1 patch topical DAILY 05/25/22 11/09/22 transdermal patch ondansetron 4 mg disintegrating 4 mg PO Q8H PRN nausea and vomiting 05/25/22 11/09/22 tablet empagliflozin 10 mg tablet 10 mg PO DAILY #30 tabs 08/28/22 11/09/22 (Jardiance) tramadol 50 mg tablet 50 mg PO Q6H PRN PRN #30 tabs 08/28/22 11/09/22 promethazine 25 mg rectal 25 mg GA Q6H PRN nausea and 10/05/22 11/09/22 suppository vomiting #12 ea metoclopramide HCl 10 mg tablet 10 mg PO Q6H 30 days #120 tabs 11/09/22 11/09/22 (Reglan) omeprazole 40 mg capsule,delayed 40 mg PO DAILY #30 caps 11/09/22 11/09/22 release Previous Rx's Medication Instructions Recorded promethazine 25 mg tablet 25 mg PO TID PRN nausea and 02/06/22 vomiting #7 tabs blood-glucose sensor (Dexcom G6 #6 ea 05/03/22 Sensor device) empagliflozin 10 mg tablet 10 mg PO DAILY #30 tabs 08/28/22 (Jardiance) tramadol 50 mg tablet 50 mg PO Q6H PRN PRN #30 tabs 08/28/22 promethazine 25 mg rectal 25 mg GA Q6H PRN nausea and 10/05/22 suppository vomiting #12 ea metoclopramide HCl 10 mg tablet 10 mg PO Q6H 30 days #120 tabs 11/09/22 (Reglan) omeprazole 40 mg capsule,delayed 40 mg PO DAILY #30 caps 11/09/22 release Allergies Allergy/AdvReac Type Severity Reaction Status Date / Time ibuprofen [From Advil] Allergy Severe throat Verified 11/09/22 09:11 closes pomegranate Allergy Severe Anaphylaxis Verified 11/09/22 09:11 citalopram AdvReac Severe Bodily harm Verified 11/09/22 09:11 General Stated Complaint: Nausea/Vomit/Diar ARNOLD: 3 Review of Systems All systems reviewed & are unremarkable except as noted in HPI and below Constitutional Constitutional: Denies chills, Denies fever(s) and Denies weakness Cardiovascular Cardiovascular: Denies chest pain and Denies dyspnea Respiratory Respiratory: Denies cough and Denies dyspnea Gastrointestinal Gastrointestinal: Reports abdominal pain, Reports nausea and Reports vomiting Musculoskeletal Musculoskeletal: Denies joint swelling Integumentary/Breasts Skin/Breast: Denies rash Neurologic Neurologic: Denies weakness PFSH All Active Problems (Updated 02/18/23 @ 15:04 by Carrington Mera MD) Abdominal pain (Acute) Ulcerative esophagitis (Acute) Chronic nausea (Acute) Calf pain (Acute) Cellulitis of foot (Acute) Diabetic toe ulcer (Acute) Abscess (Acute) Vomiting (Acute) Gastroparesis (Chronic) Vomiting (Acute) Acute dehydration (Acute) Nausea and vomiting (Acute) IDDM (insulin dependent diabetes mellitus) (Chronic) Tobacco abuse (Acute) Cannabinoid hyperemesis syndrome (Acute) Upper GI bleeding (Acute) UTI (urinary tract infection) (Acute) Hypokalemia (Acute) Type 2 diabetes mellitus (Chronic) Type 2 diabetes mellitus with diabetic neuropathy (Chronic) Ulcer of other part of foot (Acute) Amputation of toe of left foot (Acute) Infection of toe (Acute) Osteomyelitis (Acute) Medical History Anxiety and depression Back pain Cellulitis of third toe, left Chest pain r/t Anxiety Diabetes Type 1, per patient she said she was told she had diabetes type 2. Diabetic neuropathy History of cellulitis toe History of kidney stones History of osteomyelitis IBS (irritable bowel syndrome) Peripheral neuropathy Suicide attempt Surgical History Amputation of left great toe H/O tubal ligation History of amputation 2nd toe left foot Family History Paternal Grandmother Heart disease Diabetes Maternal Aunt Hypertension Breast cancer maternal great aunt Maternal Grandfather Hypertension Maternal Grandmother Breast cancer Maternal Aunt No problems noted. Maternal Cousin Breast cancer Maternal Cousin Breast cancer Maternal Cousin Breast cancer Social History Smoking/Tobacco Use Status: Current every day Tobacco Type: cigarettes Smoking risk assessment performed?: Yes Alcohol Intake: current Alcohol Intake frequency: holidays/special occasions only Drug use: Daily Substance use type: marijuana Details: last marijuana was last week Do you feel safe at home: Yes Do you feel safe in your relationship?: Yes Exam Const General: no acute distress Orientation: alert HENMT Head: normal to inspection Ears: external ears normal General nose exam: external nose normal Mouth: moist mucous membranes Eyes General: appearance normal, both eyes and all related structures Neck Neck: normal visual inspection Resp Effort & Inspection: normal respiratory effort and able to speak in complete sentences Auscultation: clear to auscultation bilaterally Cardio Jugular venous pressure: no JVD Rate: regular rate Heart Sounds: no murmurs GI Palpation: soft and tender Skin General skin exam: no rashes or lesions noted Neuro General: patient alert and patient oriented x3 Extrem General: normal to inspection Psych Mental Status: mental status grossly normal Course Vital Signs Vital signs: Vital Signs Temperature 36.7 C 02/18/23 14:18 Pulse 76 02/18/23 14:18 Respiratory Rate 16 02/18/23 14:18 Blood Pressure 147/78 H 02/18/23 14:18 Pulse Oximetry 100 02/18/23 14:18 Temperature 36.7 C 02/18/23 14:18 Temperature Source Skin 02/18/23 14:18 Pulse 76 02/18/23 14:18 Respiratory Rate 16 02/18/23 14:18 Respiratory Effort Normal 02/18/23 14:33 Blood Pressure 147/78 H 02/18/23 14:18 Blood Pressure Position Supine 02/18/23 14:18 Pulse Oximetry 100 02/18/23 14:18 Oxygen Delivery Method Room Air 02/18/23 14:18 Oxygen Flow Rate 0 02/18/23 14:18 Pain Level 6 02/18/23 14:18 Lab/Test Results Lab/Test Results: Laboratory Tests Range/Units 02/18/23 02/18/23 14:25 14:25 WBC (4.4-10.8) 10^3/uL 17.25 H RBC (3.93-5.22) 10^6/uL 4.91 Hgb (11.2-15.7) g/dL 15.1 Hct (36.0-46.0) % 43.7 MCV (80-95) fL 89 MCH (27.0-33.0) pg 30.8 MCHC (32.0-36.0) % 34.6 RDW (11.7-14.6) % 12.3 Plt Count (130-400) 10^3/uL 439 H MPV (8.0-11.0) fL 9.3 Immature Gran % 0.4 Neutrophils % 86.7 Lymphocytes % 8.6 Monocytes % 4.1 Eosinophils % 0.0 Basophils % 0.2 Nucleated RBC % (0.0-0.3) % 0.0 Absolute Neutrophils (1.2-6.7) 10^3/uL 14.96 H Absolute Lymphocytes (1.2-3.4) 10^3/uL 1.48 Absolute Monocytes (0.1-0.8) 10^3/uL 0.71 Absolute Eosinophils (0.0-0.7) 10^3/uL 0.00 Absolute Basophils (0.0-0.2) 10^3/uL 0.03 VBG pH (7.31-7.41) 7.42 H VBG pCO2 (41-51) mmHg 49 VBG pO2 mmHg 27 VBG HCO3 (23-28) mmol/L 31 H VBG Total CO2 (24-29) mmol/L 28 VBG O2 Saturation % 51 VBG Base Excess (-2-3) mmol/L 7 H PAWSS Have you Been Recently Intoxicated or Drunk Within the Last 30 days?: No Result: 0
[2023-02-18] MEDS: Droperidol 5 MG/2 ML VIAL 2.5 MG IVP (14:41)
[2023-02-18 14:53] LABS: PTT Activated 25.6 sec (21.5-31.9); Prothrombin Time 9.8 sec (9.3-11.0)
[2023-02-18 15:04] LABS: Salicylate 3.9 mg/dL (<2.8)
[2023-02-18 15:14] LABS: ALT 24 U/L (14-59); AST 13 U/L (15-37); Acetaminophen < 2 ug/mL (10-30); Albumin 4.2 g/dL (3.4-5.0); Alkaline Phosphatase 116 U/L (46-116); Anion Gap 10.5 mmol/L (3-11); BUN 20 mg/dL (7-18); Bilirubin, Total 0.4 mg/dL (0.2-1.0); CO2 31.5 mmol/L (21.0-32.0); CREATININE 0.9 mg/dL (0.55-1.02); Calcium 10.4 mg/dL (8.5-10.1); Chloride 98 mmol/L (98-107); ETHANOL BLOOD < 3.0 mg/dL (<10); Estimated GFR 84.44 (mL/min/1.73m2); Glucose 335 mg/dL (74-106); Magnesium 1.8 mg/dL (1.8-2.4); Potassium 3.5 mmol/L (3.5-5.1); Sodium 140 mmol/L (136-145); TSH (W/Ref FT4) 0.44 uIU/mL (0.36-3.74); Troponin I < 50 ng/L (<or=60)
[2023-02-18 15:15] LABS: Procalcitonin < 0.1 ng/mL
[2023-02-18] MEDS: Omnipaque 350 MG/ML 100 ML BTL IJ (15:21)
[2023-02-18] MEDS: Normal Saline - Diluent 50 ML VIAL IJ (15:22)
--- NOTE | 2023-02-18 15:33 | DI.CT_ITS ---
Exam(s) CT ABDOMEN PELVIS W EXAM: CT ABDOMEN PELVIS W CLINICAL HISTORY: abdominal pain, n/v TECHNIQUE: Imaging Protocol: Axial computed tomography images with coronal and sagittal reformatted images were created and reviewed CONTRAST MATERIAL: Intravenous: Omnipaque 350 Contrast volume:100 mL Oral: No COMPARISON: CT CT CHEST/ABD/PEL W from 10/03/2022 FINDINGS: The examination is limited due to patient motion artifact. ABDOMEN: Lung Bases: There is fluid seen in the distal esophagus. Liver: Normal density. No measurable mass. Portal, Superior Mesenteric, and Splenic Veins: Unremarkable. Gallbladder and Biliary Tract: No radiodense calculus or dilation. Pancreas: Normal density, no abnormal calcifications or inflammatory process. Spleen: Normal. Adrenals: No masses seen. Kidneys: Normal size, contour and axis. There is again seen a nonobstructing stone in the lower pole of the left kidney. No masses seen. Abdominal Aorta: Abdominal portion non-dilated. Bowel: No obstruction or bowel wall thickening. There is no evidence of appendicitis. Peritoneal Cavity: No ascites, collection or mesenteric inflammatory response. No free air. Lymph Nodes: Within normal limits. Bones: Within normal limits for the patient's age. Soft Tissues: Unremarkable. PELVIS: Bladder: Symmetric distention, no gross wall thickening. Reproductive Organs: Unremarkable as visualized. Lymph Nodes: Within normal limits. Bones: Within normal limits for the patient's age. IMPRESSION: 1. No acute abdominal or pelvic process. 2. Findings were discussed with Dr. Amos at 3:51 p.m. on 02/18/2023. RADIATION DOSE DELIVERED: 1,382.1mGy.cm Total DLP DATA REPOSITORY: All CT scans at this facility are submitted to the National Radiology Data Registry (NRDR) Dose Index Registry (DIR) with the [employer] (A[employer]). RADIATION OPTIMIZATION: All CT scans at this facility use at least one of these dose optimization te chniques: automated exposure control; mA and/or kV adjustment per patient size (includes targeted exa ms where dose is matched to clinical indication); or iterative reconstruction.
[2023-02-18] MEDS: HYDROmorphone 2 MG/ML SYR 1 MG IVP (15:47)
[2023-02-18 17:48] LABS: Troponin I < 50 ng/L (<or=60)
[2023-02-18 17:56] LABS: Bilirubin Negative (Negative); Blood Trace-intact (Negative); Clarity Clear (Clear); Glucose 500 mg/dL (Negative); Ketones 80 mg/dL (Negative); Leukocyte Esterase Negative (Negative); Nitrite Negative (Negative); Urobilinogen 0.2 mg/dL (Up to 0.2)
[2023-02-18 18:03] LABS: Epithelial Cells Many HPF (Negative); WBC 0-2 HPF (0-5)
[2023-02-18 18:04] LABS: Bacteria Rare HPF (Negative); C & S Indicated? No/Sq. Contamination; Casts Negative LPF (Negative); Crystals Negative HPF (Negative); Mucus Negative (Negative)
[2023-02-18 18:11] LABS: *AMPHETAMINES SCREEN URINE Negative (Negative); *BARBITURATES SCREEN URINE Negative (Negative); *BENZODIAZEPINES SCREEN URINE Negative (Negative); Cannabinoids THC Positive (Negative); Cocaine Screen,Urine Negative (Negative); METHADONE URINE SCREEN Negative (Negative); OPIATES URINE SCREEN Positive (Negative); Tricyclic Antidepressants Negative (Negative)
--- NOTE | 2023-02-18 18:20 | W.EDPROG ---
Date of service: 02/18/23 Time of Service: 18:20 Medical Decision Making Patient signed out to me pending CT scan, urine, repeat troponin. She had presented with persistent vomiting, abdominal pain. She is diabetic. While her sugar was elevated her pH was alkalotic and her bicarb was 32 with no anion gap so very unlikely to be DKA. CT scan per radiology negative for any acute pathology. Patient's repeat troponin remains flat. Urinalysis without infection. Urine drug screen positive for THC which she admits to using regularly as well as opiates after receiving Dilaudid here. Patient much better after fluids, droperidol, Dilaudid. She is tolerating p.o. She is comfortable with discharge home at this time. Follow-up with primary care next week. Return precautions provided. Imaging Data Radiologic Study: Imaging: CT Scan (discussed with radiologist - no acute pathology) Lab Data Lab results reviewed: Yes I reviewed the patient's lab results. Sign Out Sign Out Data: Sign Out Comment: n/v and abdominal pain, likely cannabinoid hyperemesis, pending ct Last updated by Carrington Mera MD at 02/18/23 15:21 Discharge Plan Disposition Patient Disposition: Home Discharge Details Chief Complaint: Nausea/Vomit/Diar Clinical Impression: Vomiting, Abdominal pain Primary Care Provider: None,None ED Provider: Rigo Amos [facility] and New Rx's Prescriptions: No Action metoclopramide HCl [Reglan] 10 mg tablet 10 mg PO Q6H 30 Days Qty: 120 5RF Rx Instructions: take 30 minutes before meals and at bedtime omeprazole 40 mg capsule,delayed release(DR/EC) 40 mg PO DAILY Qty: 30 5RF gabapentin 300 mg Tablet 300 - 900 mg PO DIRECTED Rx Instructions: 300 qam 900 hs lorazepam 0.5 mg Tablet 0.5 mg PO DAILY insulin aspart U-100 [Novolog FlexPen U-100 Insulin] 100 unit/mL (3 mL) insulin pen 12 unit SUBCUT TID Patient Comments: INJECT 9 UNITS SUBCUTANEOUSLY THREE TIMES DAILY WITH MEALS insulin glargine [Lantus Solostar U-100 Insulin] 100 unit/mL (3 mL) insulin pen 40 unit SUBCUT HS Patient Comments: INJECT 40 UNITS SUBCUTANEOUSLY AT BEDTIME promethazine 25 mg tablet 25 mg PO TID PRN (Reason: nausea and vomiting) Qty: 7 0RF Patient Comments: not taking lidocaine [Lidoderm] 5 % adhesive patch,medicated 1 patch topical DIRECTED Patient Comments: PLACE 1 PATCH ONTO THE SKIN DAILY. PATCHE(S) MAY REMAIN IN PLACE FOR UP TO 12 HOURS IN ANY 24-HOUR PERIOD nicotine 7 mg/24 hr patch 24 hour 1 patch topical DAILY Patient Comments: APPLY 1 PATCH DAILY TOPICALLY TO SKIN WITHOUT HAIR. APPLY TO A DIFFERENT SITE AT THE SAME TIME EACH DAY, AFTER COMPLETION OF 14MG PATCHES ondansetron 4 mg tablet,disintegrating 4 mg PO Q8H PRN (Reason: nausea and vomiting) metoclopramide HCl [Reglan] 10 mg tablet 10 mg PO HS PRN (DME) Dexcom G6 Sensor Device See Rx Instructions .Route Qty: 6 0RF Rx Instructions: As directed Jardiance 10 mg Tablet 10 mg PO DAILY Qty: 30 0RF tramadol 50 mg Tablet 50 mg PO Q6H PRN PRNQty: 30 0RF promethazine 25 mg suppository 25 mg MS Q6H PRN (Reason: nausea and vomiting) Qty: 12 0RF Discharge Instructions Instructions: Acute Nausea and Vomiting (ED) Additional Instructions: You were seen in the ED for persistent vomiting with abdominal pain. Your work-up overall is reassuring with a CT scan that shows no acute abdominal pathology. Recommend taking it easy over the next day or two, hydrate but stick with clear liquids, bland diet. Follow-up with primary care next week. Return to the ED if you develop fever, recurrent/persistent vomiting, new or worsening abdominal pain, other concerns.
== END 2023-02-18 18:38 | disposition home or self-care (01) ==
PROVIDERS: Emergency Medicine; Emergency Provider Emergency Medicine
DX: R11.10 Vomiting, unspecified (principal); R10.9 Unspecified abdominal pain
CPT/HCPCS: 36416; 80053; 80307; 82805; 82962; 84145; 93005; 96361; 96374; 96375; 99285; 74177; 80320; 80329; 81003; 81015; 83735; 84443; 84484; 85025; 85610; 85730; 93010; 99284; J1170; J1790; J3490

== ENCOUNTER 2023-02-19 20:03 | Inpatient (IN) | payer BC, MEDICAID, SELFPAY ==
[2023-02-19] VITALS (34 sets, daily range): BP systolic 123–153; BP diastolic 70–116; PULSE 85–136; RESP 11–25; TEMP 36.6; O2SAT 76–100
[2023-02-19] MEDS: Normal Saline 1,000 ML 1000 ML IV (20:30)
[2023-02-19] MEDS: Droperidol 5 MG/2 ML VIAL 1.25 MG IVP (20:34)
[2023-02-19 20:42] LABS: Abs Immature Grans 0.08 10^3/uL (0.0-0.06); Absolute Lymphocyte Count 3.14 10^3/uL (1.2-3.4); Basophils % 0.2; Eosinophils % 0.1; HCT 44.2 % (36.0-46.0); HGB 15.6 g/dL (11.2-15.7); Immature Grans % 0.5; Lymphocytes % 18.8; MCH 31.1 pg (27.0-33.0); MCHC 35.3 % (32.0-36.0); MCV 88 fL (80-95); MPV 9.3 fL (8.0-11.0); Monocytes % 7.8; Neutrophils % 72.6; Platelet Count 448 10^3/uL (130-400); RBC 5.02 10^6/uL (3.93-5.22); RDW 12.1 % (11.7-14.6); RDW-SD 39.1 fL; WBC 16.72 10^3/uL (4.4-10.8)
[2023-02-19 20:43] LABS: Absolute Basophil Count 0.03 10^3/uL (0.0-0.2); Absolute Eosinophil Count 0.02 10^3/uL (0.0-0.7); Absolute Neutrophil Count 12.14 10^3/uL (1.2-6.7)
[2023-02-19 20:56] LABS: ALT 21 U/L (14-59); AST 18 U/L (15-37); Albumin 3.9 g/dL (3.4-5.0); Alkaline Phosphatase 103 U/L (46-116); BUN 15 mg/dL (7-18); Bilirubin, Total 0.5 mg/dL (0.2-1.0); CREATININE 0.7 mg/dL (0.55-1.02); Calcium 9.6 mg/dL (8.5-10.1); Chloride 91 mmol/L (98-107); Estimated GFR 114.16 (mL/min/1.73m2); Glucose 267 mg/dL (74-106); Lipase 48 U/L (16-77); Sodium 136 mmol/L (136-145); Total Protein 8.2 g/dL (6.4-8.2)
[2023-02-19 20:58] LABS: Potassium 2.4 mmol/L (3.5-5.1)
[2023-02-19] MEDS: POTASSIUM CHLORIDE 20 MEQ/100 ML BAG 50 MEQ IVPB (21:05)
[2023-02-19 21:16] LABS: HCG Quant, Pregnancy < 1 mIU/mL (1-3)
--- NOTE | 2023-02-19 22:08 | ED.GENADUL_ITS ---
Discharge Plan Disposition Patient Disposition: Admit to [facility] Condition: Serious Discharge Details Chief Complaint: Nausea/Vomit/Diar Clinical Impression: Nausea and vomiting, Hypokalemia Primary Care Provider: None,None ED Provider: Eryn Lamar Home Meds and New Rx's Prescriptions: No Action metoclopramide HCl [Reglan] 10 mg tablet 10 mg PO Q6H 30 Days Qty: 120 5RF Rx Instructions: take 30 minutes before meals and at bedtime omeprazole 40 mg capsule,delayed release(DR/EC) 40 mg PO DAILY Qty: 30 5RF gabapentin 300 mg Tablet 300 - 900 mg PO DIRECTED Rx Instructions: 300 qam 900 hs lorazepam 0.5 mg Tablet 0.5 mg PO DAILY insulin aspart U-100 [Novolog FlexPen U-100 Insulin] 100 unit/mL (3 mL) insulin pen 12 unit SUBCUT TID Patient Comments: INJECT 9 UNITS SUBCUTANEOUSLY THREE TIMES DAILY WITH MEALS insulin glargine [Lantus Solostar U-100 Insulin] 100 unit/mL (3 mL) insulin pen 40 unit SUBCUT HS Patient Comments: INJECT 40 UNITS SUBCUTANEOUSLY AT BEDTIME promethazine 25 mg tablet 25 mg PO TID PRN (Reason: nausea and vomiting) Qty: 7 0RF Patient Comments: not taking lidocaine [Lidoderm] 5 % adhesive patch,medicated 1 patch topical DIRECTED Patient Comments: PLACE 1 PATCH ONTO THE SKIN DAILY. PATCHE(S) MAY REMAIN IN PLACE FOR UP TO 12 HOURS IN ANY 24-HOUR PERIOD nicotine 7 mg/24 hr patch 24 hour 1 patch topical DAILY Patient Comments: APPLY 1 PATCH DAILY TOPICALLY TO SKIN WITHOUT HAIR. APPLY TO A DIFFERENT SITE AT THE SAME TIME EACH DAY, AFTER COMPLETION OF 14MG PATCHES ondansetron 4 mg tablet,disintegrating 4 mg PO Q8H PRN (Reason: nausea and vomiting) metoclopramide HCl [Reglan] 10 mg tablet 10 mg PO HS PRN (DME) Dexcom G6 Sensor Device See Rx Instructions .Route Qty: 6 0RF Rx Instructions: As directed Jardiance 10 mg Tablet 10 mg PO DAILY Qty: 30 0RF tramadol 50 mg Tablet 50 mg PO Q6H PRN PRNQty: 30 0RF promethazine 25 mg suppository 25 mg [place] Q6H PRN (Reason: nausea and vomiting) Qty: 12 0RF Medical Decision Making 37yo F with T2DM, gastroparesis, cannabis use, presenting for 3-4 days of nausea and vomiting. Seen in this ED yesterday for same. History from patient, at bedside; ED visit note reviewed. CT negative yesterday. Unable to keep down fluids at home despite home zofran & reglan, emesis now blood-streaked (likely александр donohue tear). Describes symptoms as similar to prior episodes related to her gastroparesis; may have component of cannaboid hyperemsis as well Reassuring abdominal exam; would not get repeat imaging. Is tachycardiac to 110's and has dry MM; will give fluid bolus, treat with IV droperidol. Labs as below, leukoctyosis to 16, no anemia, markedly hypokalemic to 2.4 and alkalotic to 25 consist with frequent vomiting. Mild hyperglycemia to 267, normal gap; not in DKA. IV and PO potassium ordered; if able to tolerate PO fluids after medication will see if can keep PO potassium down. On reassessment vomiting has improved, still markedly nauseated, able to tolerate sips of fluids but no more. Not likely to be able to tolerate PO potassium. Also complaining of low back pain; palpable left paraspinal spasm on exam, will treat with flexeril and Tylenol. Given degree of hypokalemia, discussed with hospitalist and accepted to the medicine service for overnight hydration, continued IV potassium repletion. Awaiting transfer to the floor. Lab Data Lab results reviewed: Yes I reviewed the patient's lab results. Labs: Laboratory Tests Range/Units 02/19/23 02/19/23 20:22 20:22 WBC (4.4-10.8) 10^3/uL 16.72 H RBC (3.93-5.22) 10^6/uL 5.02 Hgb (11.2-15.7) g/dL 15.6 Hct (36.0-46.0) % 44.2 MCV (80-95) fL 88 MCH (27.0-33.0) pg 31.1 MCHC (32.0-36.0) % 35.3 RDW (11.7-14.6) % 12.1 Plt Count (130-400) 10^3/uL 448 H MPV (8.0-11.0) fL 9.3 Immature Gran % 0.5 Neutrophils % 72.6 Lymphocytes % 18.8 Monocytes % 7.8 Eosinophils % 0.1 Basophils % 0.2 Nucleated RBC % (0.0-0.3) % 0.0 Absolute Neutrophils (1.2-6.7) 10^3/uL 12.14 H Absolute Lymphocytes (1.2-3.4) 10^3/uL 3.14 Absolute Monocytes (0.1-0.8) 10^3/uL 1.30 H Absolute Eosinophils (0.0-0.7) 10^3/uL 0.02 Absolute Basophils (0.0-0.2) 10^3/uL 0.03 Sodium (136-145) mmol/L 136 Potassium (3.5-5.1) mmol/L 2.4 L* D Chloride (98-107) mmol/L 91 L Carbon Dioxide (21.0-32.0) mmol/L 35.0 H Anion Gap (3-11) mmol/L 10.0 BUN (7-18) mg/dL 15 Creatinine (0.55-1.02) mg/dL 0.7 Est GFR (CKD-EPI 2020) (mL/min/1.73m2) 114.16 Glucose (74-106) mg/dL 267 H Calcium (8.5-10.1) mg/dL 9.6 Total Bilirubin (0.2-1.0) mg/dL 0.5 AST (15-37) U/L 18 ALT (14-59) U/L 21 Alkaline Phosphatase (46-116) U/L 103 Total Protein (6.4-8.2) g/dL 8.2 Albumin (3.4-5.0) g/dL 3.9 Lipase (16-77) U/L 48 Beta HCG, Quant (1-3) mIU/mL < 1 L HPI General Mode of arrival: ambulatory . Date/Time Provider Initiated Documentation: 02/19/23 20:04 . Limitations to Documentation: no limitations . Information obtained by: patient and family . HPI Narrative: 37yo F with T2DM, gastroparesis, presenting for 3-4 days of nausea and vomiting. Seen in this ED yesterday for same. Frequent emesis, now streaked with blood. Unable to keep down fluids at home despite home zofran & reglan. Mild diffuse abdominal pain, no focal pain. She is otherwise in her usual state of health with no fevers, chills, rash, dysuria, hematuria, flank pain, headache, recent head injury, or other concerns. Related Data Home Medications Medication Instructions Recorded Confirmed gabapentin 300 mg tablet 300 - 900 mg PO DIRECTED 01/24/21 11/09/22 lorazepam 0.5 mg tablet 0.5 mg PO DAILY 01/24/21 11/09/22 insulin aspart U-100 100 unit/mL 12 unit subcut TID 01/14/22 11/09/22 (3 mL) subcutaneous pen (Novolog FlexPen U-100 Insulin aspart) insulin glargine 100 unit/mL (3 40 unit subcut HS 01/14/22 11/09/22 mL) subcutaneous pen (Lantus Solostar U-100 Insulin) promethazine 25 mg tablet 25 mg PO TID PRN nausea and 02/06/22 11/09/22 vomiting #7 tabs blood-glucose sensor (Dexcom G6 #6 ea 05/03/22 11/09/22 Sensor device) lidocaine 5 % topical patch 1 patch topical DIRECTED 05/25/22 11/09/22 (Lidoderm) metoclopramide HCl 10 mg tablet 10 mg PO HS PRN 05/25/22 11/09/22 (Reglan) nicotine 7 mg/24 hr daily 1 patch topical DAILY 05/25/22 11/09/22 transdermal patch ondansetron 4 mg disintegrating 4 mg PO Q8H PRN nausea and vomiting 05/25/22 11/09/22 tablet empagliflozin 10 mg tablet 10 mg PO DAILY #30 tabs 08/28/22 11/09/22 (Jardiance) tramadol 50 mg tablet 50 mg PO Q6H PRN PRN #30 tabs 08/28/22 11/09/22 promethazine 25 mg rectal 25 mg AK Q6H PRN nausea and 10/05/22 11/09/22 suppository vomiting #12 ea metoclopramide HCl 10 mg tablet 10 mg PO Q6H 30 days #120 tabs 11/09/22 11/09/22 (Reglan) omeprazole 40 mg capsule,delayed 40 mg PO DAILY #30 caps 11/09/22 11/09/22 release Previous Rx's Medication Instructions Recorded promethazine 25 mg tablet 25 mg PO TID PRN nausea and 02/06/22 vomiting #7 tabs blood-glucose sensor (Dexcom G6 #6 ea 05/03/22 Sensor device) empagliflozin 10 mg tablet 10 mg PO DAILY #30 tabs 08/28/22 (Jardiance) tramadol 50 mg tablet 50 mg PO Q6H PRN PRN #30 tabs 08/28/22 promethazine 25 mg rectal 25 mg AK Q6H PRN nausea and 10/05/22 suppository vomiting #12 ea metoclopramide HCl 10 mg tablet 10 mg PO Q6H 30 days #120 tabs 11/09/22 (Reglan) omeprazole 40 mg capsule,delayed 40 mg PO DAILY #30 caps 11/09/22 release Allergies Allergy/AdvReac Type Severity Reaction Status Date / Time ibuprofen [From Advil] Allergy Severe throat Verified 11/09/22 09:11 closes pomegranate Allergy Severe Anaphylaxis Verified 11/09/22 09:11 citalopram AdvReac Severe Bodily harm Verified 11/09/22 09:11 General Stated Complaint: Nausea/Vomit/Diar ARNOLD: 3 Review of Systems Narrative: see HPI PFSH All Active Problems (Updated 02/19/23 @ 23:18 by Eryn Lamar MD) Abdominal pain (Acute) Ulcerative esophagitis (Acute) Chronic nausea (Acute) Calf pain (Acute) Cellulitis of foot (Acute) Diabetic toe ulcer (Acute) Abscess (Acute) Vomiting (Acute) Gastroparesis (Chronic) Vomiting (Acute) Acute dehydration (Acute) Nausea and vomiting (Acute) IDDM (insulin dependent diabetes mellitus) (Chronic) Tobacco abuse (Acute) Cannabinoid hyperemesis syndrome (Acute) Upper GI bleeding (Acute) UTI (urinary tract infection) (Acute) Hypokalemia (Acute) Type 2 diabetes mellitus (Chronic) Type 2 diabetes mellitus with diabetic neuropathy (Chronic) Ulcer of other part of foot (Acute) Amputation of toe of left foot (Acute) Infection of toe (Acute) Osteomyelitis (Acute) Medical History Anxiety and depression Back pain Cellulitis of third toe, left Chest pain r/t Anxiety Diabetes Type 1, per patient she said she was told she had diabetes type 2. Diabetic neuropathy History of cellulitis toe History of kidney stones History of osteomyelitis IBS (irritable bowel syndrome) Peripheral neuropathy Suicide attempt Surgical History Amputation of left great toe H/O tubal ligation History of amputation 2nd toe left foot Family History Paternal Grandmother Heart disease Diabetes Maternal Aunt Hypertension Breast cancer maternal great aunt Maternal Grandfather Hypertension Maternal Grandmother Breast cancer Maternal Aunt No problems noted. Maternal Cousin Breast cancer Maternal Cousin Breast cancer Maternal Cousin Breast cancer Social History Smoking/Tobacco Use Status: Current every day Tobacco Type: cigarettes Smoking risk assessment performed?: Yes Alcohol Intake: current Alcohol Intake frequency: holidays/special occasions only Drug use: Daily Substance use type: marijuana Details: last marijuana was last week Housing: house Do you feel safe at home: Yes Do you feel safe in your relationship?: Yes Exam Narrative Exam Narrative: General: Alert, well appearing, well nourished Head: Normocephalic, atraumatic Neck: Trachea midline, Neck supple. ENT: Dry MM. No oropharygeal lesions or exudate. Cardiac: Tachycardiac, regular,, no murmurs appreciated Resp: No respiratory distress. CTAB. Abd: Soft, non-distended, nontender : No suprapubic tenderness. No CVA tenderness. Extremities: No deformities. No peripheral edema. Neurologic: GCS 15. Moves all extremities freely against gravity Course Vital Signs Vital signs: Vital Signs Temperature 36.6 C 02/19/23 20:06 Pulse 118 H 02/19/23 20:06 Respiratory Rate 16 02/19/23 20:06 Blood Pressure 152/98 H 02/19/23 20:06 Pulse Oximetry 98 02/19/23 20:06 Temperature 36.6 C 02/19/23 20:06 Pulse 118 H 02/19/23 20:06 Respiratory Rate 16 02/19/23 20:06 Respiratory Effort Normal 02/19/23 20:30 Blood Pressure 152/98 H 02/19/23 20:06 Blood Pressure Position Sitting 02/19/23 20:06 Pulse Oximetry 98 02/19/23 20:06 Oxygen Delivery Method Room Air 02/19/23 20:06 Oxygen Flow Rate 0 02/19/23 20:06 Pain Level 8 02/19/23 20:06 Lab/Test Results Lab/Test Results: Laboratory Tests Range/Units 02/19/23 02/19/23 20:22 20:22 WBC (4.4-10.8) 10^3/uL 16.72 H RBC (3.93-5.22) 10^6/uL 5.02 Hgb (11.2-15.7) g/dL 15.6 Hct (36.0-46.0) % 44.2 MCV (80-95) fL 88 MCH (27.0-33.0) pg 31.1 MCHC (32.0-36.0) % 35.3 RDW (11.7-14.6) % 12.1 Plt Count (130-400) 10^3/uL 448 H MPV (8.0-11.0) fL 9.3 Immature Gran % 0.5 Neutrophils % 72.6 Lymphocytes % 18.8 Monocytes % 7.8 Eosinophils % 0.1 Basophils % 0.2 Nucleated RBC % (0.0-0.3) % 0.0 Absolute Neutrophils (1.2-6.7) 10^3/uL 12.14 H Absolute Lymphocytes (1.2-3.4) 10^3/uL 3.14 Absolute Monocytes (0.1-0.8) 10^3/uL 1.30 H Absolute Eosinophils (0.0-0.7) 10^3/uL 0.02 Absolute Basophils (0.0-0.2) 10^3/uL 0.03 Sodium (136-145) mmol/L 136 Potassium (3.5-5.1) mmol/L 2.4 L* D Chloride (98-107) mmol/L 91 L Carbon Dioxide (21.0-32.0) mmol/L 35.0 H Anion Gap (3-11) mmol/L 10.0 BUN (7-18) mg/dL 15 Creatinine (0.55-1.02) mg/dL 0.7 Est GFR (CKD-EPI 2020) (mL/min/1.73m2) 114.16 Glucose (74-106) mg/dL 267 H Calcium (8.5-10.1) mg/dL 9.6 Total Bilirubin (0.2-1.0) mg/dL 0.5 AST (15-37) U/L 18 ALT (14-59) U/L 21 Alkaline Phosphatase (46-116) U/L 103 Total Protein (6.4-8.2) g/dL 8.2 Albumin (3.4-5.0) g/dL 3.9 Lipase (16-77) U/L 48 Beta HCG, Quant (1-3) mIU/mL < 1 L PAWSS Have you Been Recently Intoxicated or Drunk Within the Last 30 days?: No Have you Ever Experienced Previous Episodes of Alcohol Withdrawal?: No Have you ever Experienced Withdrawal Seizures?: No Have you ever Experienced Delirium Tremens(DT)s?: No Have you ever undergone Alcohol Rehabilitation Treatment (i.e, inpt ot outpatient treatment programs)?: No Have you ever Experienced Blackouts?: No Have you ever Combined Alcohol with other Downers within the last 90 days?: No Have you ever Combined Alcohol with any other Substance of Abuse during the last 90 days?: No Positive Blood Alcohol level on Presentation? [PCS.BAL]: No Evidence of Increased Autonomic Activity (i.e. HR>120, tremor, sweating, agitation, nausea)?: No Result: 0
[2023-02-19 23:09] LABS: Bilirubin Negative (Negative); Blood Negative (Negative); Clarity Clear (Clear); Glucose 250 mg/dL (Negative); Ketones >=160 mg/dL (Negative); Leukocyte Esterase Negative (Negative); Nitrite Negative (Negative); Urobilinogen 0.2 mg/dL (Up to 0.2); pH 8.5 (5-8)
[2023-02-19 23:10] LABS: Bacteria Rare HPF (Negative); C & S Indicated? No; Casts Negative LPF (Negative); Crystals Negative HPF (Negative); Epithelial Cells Many HPF (Negative); Mucus Negative (Negative); RBC Negative HPF (0-2); WBC Negative HPF (0-5)
[2023-02-19] MEDS: Acetaminophen 500 MG TAB 1000 MG PO (23:15)
[2023-02-19] MEDS: Cyclobenzaprine 10 MG TAB PO (23:15)
--- NOTE | 2023-02-19 23:20 | W.PM.HP.N ---
Date of service: 02/19/23 Time of Service: 23:20 Assessment and Plan Assessment and plan (1) Emesis, persistent: Start date: 02/19/23 Status: Acute Assessment and plan: Patient does have a history of uncontrolled gastroparesis secondary to diabetes which is poorly controlled. The episodes of emesis and presents with hypokalemia and magnesium will be checked and repleted as well with potassium IV repletion ongoing. Better control diabetes may help this recurrent problem. Maximize symptomatic care with bowel rest and clear fluids while IV hydration take place. Prognosis is poor for improvement unless patient can improve diabetes control and maximize medical therapy for this problem. She is not maximally taken Reglan but her mixture of medications could cause QT prolongation which is a concern. Droperidol was used in the ED and will not be continued because of this concern. Ativan will be maximized to help emesis since he already takes this for anxiety. She is a full code. (2) Hypokalemia: Start date: 02/19/23 Status: Acute Assessment and plan: IV repletion with patient potassium not as severely low with alkalosis and we will watch for over replenishment as we correct her acidosis. (3) Hypochloremic alkalosis: Start date: 02/19/23 Status: Acute Assessment and plan: Secondary to persistent emesis with patient to have IV hydration with normal saline in addition to potassium with normal saline. Follow-up in the morning. (4) Gastroparalysis due to secondary diabetes: Status: Chronic Assessment and plan: Continue follow-up with GI and better control of diabetes. (5) Ulcerative esophagitis: Status: Chronic Assessment and plan: Continue PPI orally. (6) Type 2 diabetes mellitus: Status: Chronic Assessment and plan: Hold outpatient medical regimen with patient to have before meal and bedtime glucometer measurements and moderate dosing of short acting insulin coverage. (7) Diabetic neuropathy: Assessment and plan: Continue gabapentin as at home. Continue tramadol for pain management. (8) Anxiety and depression: Assessment and plan: Ativan will be given more frequently to help with nausea. This is safer than adding other medication which could cause QT prolongation. History of Present Illness History of Present Illness Chief Complaint: Presents with vomiting without diarrhea, history of gastroparesis Narrative: This is a 37-year-old female patient who has severe persistent and recurrent bouts of emesis which is uncontrolled with gastroparesis secondary to poorly controlled diabetes mellitus. Her last diabetic follow-up with hemoglobin A1c revealed a high number and she has not had a recent A1c. This will be repeated. She is overweight and does have psychological issues which may contribute to some of her persistent nausea. She had an ED visit the day prior to admission but failed home therapy with persistent nausea vomiting and presented with hypokalemia and hypochloremic alkalosis needing IV resuscitation. She did receive 1 dose of droperidol which helped her nausea and chronically is on Reglan which could be increased and uses before meals 3 times daily with Zofran usually given in a oral disintegrating tablet which variably works. She also take Compazine suppositories. She is seen by GI and they have done an endoscopy to have not found a medical regimen with help. Control her diabetes would be helpful. She has had sequela of her diabetes with neuropathy and a left large toe amputation secondary to infection with chronic cracks over her feet and poorly controlled diabetes. She has no other new complaints presently and is more comfortable after droperidol. She is on IV fluids. She will receive IV potassium repletion and magnesium will be checked and repleted if low. She is a full code. Review of Systems Narrative: 13 point review of systems otherwise unrevealing or stable. [facility] All Active Problems (Updated 02/20/23 @ 00:03 by Broderick Rubi) Hypochloremic alkalosis (Acute) Emesis, persistent (Acute) Gastroparalysis due to secondary diabetes (Chronic) Abdominal pain (Acute) Ulcerative esophagitis (Chronic) Chronic nausea (Acute) Calf pain (Acute) Cellulitis of foot (Acute) Diabetic toe ulcer (Acute) Abscess (Acute) Vomiting (Acute) Gastroparesis (Chronic) Vomiting (Acute) Acute dehydration (Acute) Nausea and vomiting (Acute) IDDM (insulin dependent diabetes mellitus) (Chronic) Tobacco abuse (Acute) Cannabinoid hyperemesis syndrome (Acute) Upper GI bleeding (Acute) UTI (urinary tract infection) (Acute) Hypokalemia (Acute) Type 2 diabetes mellitus (Chronic) Type 2 diabetes mellitus with diabetic neuropathy (Chronic) Ulcer of other part of foot (Acute) Amputation of toe of left foot (Acute) Infection of toe (Acute) Osteomyelitis (Acute) Medical History Anxiety and depression Back pain Cellulitis of third toe, left Chest pain r/t Anxiety Diabetes Type 1, per patient she said she was told she had diabetes type 2. Diabetic neuropathy History of cellulitis toe History of kidney stones History of osteomyelitis IBS (irritable bowel syndrome) Peripheral neuropathy Suicide attempt Surgical History Amputation of left great toe H/O tubal ligation History of amputation 2nd toe left foot Family History Paternal Grandmother Heart disease Diabetes Maternal Aunt Hypertension Breast cancer maternal great aunt Maternal Grandfather Hypertension Maternal Grandmother Breast cancer Maternal Aunt No problems noted. Maternal Cousin Breast cancer Maternal Cousin Breast cancer Maternal Cousin Breast cancer Social History Smoking/Tobacco Use Status: Current every day Tobacco Type: cigarettes Smoking risk assessment performed?: Yes Alcohol Intake: current Alcohol Intake frequency: holidays/special occasions only Drug use: Daily Substance use type: marijuana Details: last marijuana was last week Housing: house Do you feel safe at home: Yes Do you feel safe in your relationship?: Yes Meds Allergies and Home Medications Allergies Allergy/AdvReac Type Severity Reaction Status Date / Time ibuprofen [From Advil] Allergy Severe throat Verified 11/09/22 09:11 closes pomegranate Allergy Severe Anaphylaxis Verified 11/09/22 09:11 citalopram AdvReac Severe Bodily harm Verified 11/09/22 09:11 Home Medications Medication Instructions Recorded Confirmed Type gabapentin 300 mg tablet 300 - 900 mg PO DIRECTED 01/24/21 11/09/22 History lorazepam 0.5 mg tablet 0.5 mg PO DAILY 01/24/21 11/09/22 History insulin aspart U-100 100 unit/mL 12 unit subcut TID 01/14/22 11/09/22 History (3 mL) subcutaneous pen (Novolog FlexPen U-100 Insulin aspart) insulin glargine 100 unit/mL (3 40 unit subcut HS 01/14/22 11/09/22 History mL) subcutaneous pen (Lantus Solostar U-100 Insulin) promethazine 25 mg tablet 25 mg PO TID PRN nausea and 02/06/22 11/09/22 Rx vomiting #7 tabs blood-glucose sensor (Dexcom G6 #6 ea 05/03/22 11/09/22 Rx Sensor device) lidocaine 5 % topical patch 1 patch topical DIRECTED 05/25/22 11/09/22 History (Lidoderm) metoclopramide HCl 10 mg tablet 10 mg PO HS PRN 05/25/22 11/09/22 History (Reglan) nicotine 7 mg/24 hr daily 1 patch topical DAILY 05/25/22 11/09/22 History transdermal patch ondansetron 4 mg disintegrating 4 mg PO Q8H PRN nausea and vomiting 05/25/22 11/09/22 History tablet empagliflozin 10 mg tablet 10 mg PO DAILY #30 tabs 08/28/22 11/09/22 Rx (Jardiance) tramadol 50 mg tablet 50 mg PO Q6H PRN PRN #30 tabs 08/28/22 11/09/22 Rx promethazine 25 mg rectal 25 mg MS Q6H PRN nausea and 10/05/22 11/09/22 Rx suppository vomiting #12 ea metoclopramide HCl 10 mg tablet 10 mg PO Q6H 30 days #120 tabs 11/09/22 11/09/22 Rx (Reglan) omeprazole 40 mg capsule,delayed 40 mg PO DAILY #30 caps 11/09/22 11/09/22 Rx release Exam Narrative Exam Narrative: General: Patient appears appropriate for age, morbidly obese especially over the trunk, alert and oriented x3 with flattened affect and moderate distress from her nausea. HEENT: Normocephalic, eyes with pupils equal react light symmetrically, extraocular movement tachycardia sclera anicteric. Oropharynx with dry mucosa and poor dentition. Neck: Supple without JVD. Back: Kyphotic without CVA tenderness. Lungs: Fair aeration clear to auscultation and percussion with clear vesicular breath sounds diffusely. Breast: Exam deferred. Heart: Regular rate and rhythm with no murmurs or gallops appreciated. Abdomen: Obese contour, soft nontender to palpation with no palpable hepatosplenomegaly. Bowel sounds positive all quadrants. Genitalia/rectal: Exam deferred. Extremities: Clubbing, cyanosis or pitting edema. Patient does have amputation of her left large toe with clean scar. Cap refill. Skin: Pale, warm and dry. Neuro: Cranial nerves II through XII grossly intact, no focalizing motor deficits. No tremor. Patient does have decreased sensation to fine touch over lower extremities. Psych: Flattened affect with depressed mood. Slow monotonous tone to voice. No abnormal thought processes. Remote and recent memory intact. Results Imaging Imaging Studies: EXAM:? CT ABDOMEN ? PELVIS W CLINICAL HISTORY: ? abdominal pain, n/v ? TECHNIQUE:? Imaging Protocol: Axial computed tomography images with coronal and sagittal reformatted images were created and reviewed CONTRAST MATERIAL:? Intravenous: Omnipaque 350 Contrast volume:100 mL Oral: No COMPARISON:? CT CT CHEST/ABD/PEL W from 10/03/2022 FINDINGS: ?The examination is limited due to patient motion artifact. ABDOMEN: Lung Bases: There is fluid seen in the distal esophagus.? Liver: Normal density. No measurable mass. Portal, Superior Mesenteric, and Splenic Veins: Unremarkable.? Gallbladder and Biliary Tract: No radiodense calculus or dilation. Pancreas: Normal density, no abnormal calcifications or inflammatory process. Spleen: Normal. Adrenals: No masses seen. Kidneys: Normal size, contour and axis. There is again seen a nonobstructing stone in the lower pole of the left kidney.? No masses seen. Abdominal Aorta: Abdominal portion non-dilated. Bowel: No obstruction or bowel wall thickening. There is no evidence of appendicitis.? Peritoneal Cavity: No ascites, collection or mesenteric inflammatory response.? No free air. Lymph Nodes: Within normal limits. Bones: Within normal limits for the patient's age.? Soft Tissues: Unremarkable. PELVIS: Bladder: Symmetric distention, no gross wall thickening. Reproductive Organs: Unremarkable as visualized. Lymph Nodes: Within normal limits. Bones: Within normal limits for the patient's age.? IMPRESSION: 1. No acute abdominal or pelvic process.? Labs 02/19/23 20:22 02/19/23 20:22 Labs: Laboratory Results - last 24 hr 02/19/23 02/19/23 02/19/23 20:22 20:22 22:50 WBC 16.72 H RBC 5.02 Hgb 15.6 Hct 44.2 MCV 88 MCH 31.1 MCHC 35.3 RDW 12.1 Plt Count 448 H MPV 9.3 Immature Gran % 0.5 Neutrophils % 72.6 Lymphocytes % 18.8 Monocytes % 7.8 Eosinophils % 0.1 Basophils % 0.2 Nucleated RBC % 0.0 Absolute Neutrophils 12.14 H Absolute Lymphocytes 3.14 Absolute Monocytes 1.30 H Absolute Eosinophils 0.02 Absolute Basophils 0.03 Sodium 136 Potassium 2.4 L* D Chloride 91 L Carbon Dioxide 35.0 H Anion Gap 10.0 BUN 15 Creatinine 0.7 Est GFR (CKD-EPI 2020) 114.16 Glucose 267 H Calcium 9.6 Total Bilirubin 0.5 AST 18 ALT 21 Alkaline Phosphatase 103 Total Protein 8.2 Albumin 3.9 Lipase 48 Beta HCG, Quant < 1 L Urine Color Yellow Urine Clarity Clear Urine pH 8.5 H Ur Specific [place] 1.020 Urine Protein 100 H Urine Ketones >=160 H Urine Blood Negative Urine Nitrite Negative Urine Bilirubin Negative Urine Urobilinogen 0.2 Ur Leukocyte Esterase Negative Urine RBC Negative Urine WBC Negative Ur Epithelial Cells Many Urine Crystals Negative Urine Bacteria Rare Urine Casts Negative Urine Mucus Negative Ur Culture Indicated? No Urine Glucose 250 H Last Vital Signs Temp 36.6 C 02/19/23 20:06 Pulse 118 H 02/19/23 20:06 Resp 16 02/19/23 20:06 BP 152/98 H 02/19/23 20:06 Pulse Ox 98 02/19/23 20:06 PAWSS Have you Been Recently Intoxicated or Drunk Within the Last 30 days?: No Have you Ever Experienced Previous Episodes of Alcohol Withdrawal?: No Have you ever Experienced Withdrawal Seizures?: No Have you ever Experienced Delirium Tremens(DT)s?: No Have you ever undergone Alcohol Rehabilitation Treatment (i.e, inpt ot outpatient treatment programs)?: No Have you ever Experienced Blackouts?: No Have you ever Combined Alcohol with other Downers within the last 90 days?: No Have you ever Combined Alcohol with any other Substance of Abuse during the last 90 days?: No Positive Blood Alcohol level on Presentation? [PCS.BAL]: No Evidence of Increased Autonomic Activity (i.e. HR>120, tremor, sweating, agitation, nausea)?: No Result: 0 Time Spent Time spent with Patient: >75 minutes Time was spent: preparing to see the patient(eg.review tests), obtaining and/or reviewing separately otained hiistory, ordering medications,tests, procedures, referring, communicating with other health healthcare market consultant, indepentently interpreting results, counseling the patient and care coordination
[2023-02-20] VITALS: BP 132/68; PULSE 113; PULSE 114; RESP 18; O2SAT 99
[2023-02-20 00:02] VITALS: PULSE 109; RESP 23; O2SAT 98
[2023-02-20 00:23] VITALS: BP 137/87; PULSE 109; RESP 16; TEMP 38.2; O2SAT 96
[2023-02-20 00:39] LABS: Magnesium 1.8 mg/dL (1.8-2.4)
[2023-02-20 00:44] LABS: Hemoglobin A1C 8.3 % (<5.7)
[2023-02-20] MEDS: POTASSIUM CHLORIDE 20 MEQ/100 ML BAG 50 MEQ IVPB ×3 (00:55→13:38)
[2023-02-20] MEDS: traMADol 50 MG TAB PO (00:55)
[2023-02-20] MEDS: Patch Removal 1 EACH TP (00:56)
[2023-02-20] MEDS: Enoxaparin 40 MG/0.4 ML SYR SC (01:08)
[2023-02-20] MEDS: POTASSIUM CHLORIDE/0.9% NACL 1,000 ML 150 MEQ IV (03:02)
[2023-02-20 03:23] VITALS: BP 138/85; PULSE 109; RESP 16; TEMP 37.5; O2SAT 96
[2023-02-20 05:40] LABS: COVID-19 PCR Negative (Negative); Influenza A PCR Negative (Negative); Influenza B PCR Negative (Negative); RSV PCR Negative (Negative)
[2023-02-20 05:42] LABS: Source Nasopharynx
[2023-02-20 06:29] VITALS: O2SAT 96
[2023-02-20 07:02] LABS: HCT 40.7 % (36.0-46.0); HGB 14.1 g/dL (11.2-15.7); MCH 30.8 pg (27.0-33.0); MCHC 34.6 % (32.0-36.0); MCV 89 fL (80-95); MPV 9.4 fL (8.0-11.0); Platelet Count 406 10^3/uL (130-400); RBC 4.58 10^6/uL (3.93-5.22); RDW 11.9 % (11.7-14.6); WBC 17.16 10^3/uL (4.4-10.8)
[2023-02-20 07:14] LABS: Lab Add On Test DONE
[2023-02-20] MEDS: Omeprazole 20 MG CAPCR 40 MG PO (07:35)
[2023-02-20] MEDS: Metoclopramide 10 MG TAB PO ×3 (07:35→16:40)
[2023-02-20 07:36] VITALS: BP 132/87; PULSE 96; RESP 16; TEMP 36.9; O2SAT 98
[2023-02-20 07:37] LABS: ALT 24 U/L (14-59); AST 17 U/L (15-37); Albumin 3.4 g/dL (3.4-5.0); Alkaline Phosphatase 94 U/L (46-116); Anion Gap 10.3 mmol/L (3-11); BUN 13 mg/dL (7-18); Bilirubin, Total 0.6 mg/dL (0.2-1.0); CO2 27.7 mmol/L (21.0-32.0); CREATININE 0.7 mg/dL (0.55-1.02); Calcium 8.9 mg/dL (8.5-10.1); Chloride 94 mmol/L (98-107); Estimated GFR 114.16 (mL/min/1.73m2); Glucose 235 mg/dL (74-106); Magnesium 1.6 mg/dL (1.8-2.4); Sodium 132 mmol/L (136-145); Total Protein 7.3 g/dL (6.4-8.2)
[2023-02-20 07:41] LABS: Potassium 2.7 mmol/L (3.5-5.1)
[2023-02-20] MEDS: Gabapentin 300 MG CAP PO (07:46)
[2023-02-20] MEDS: Lidocaine 5% Patch 1 PATCH TP (07:46)
[2023-02-20 07:48] LABS: Procalcitonin < 0.1 ng/mL
[2023-02-20] MEDS: Insulin Aspart 300 UNITS/3 ML PEN SC ×3 (08:15→16:43)
[2023-02-20] MEDS: MAGNESIUM SULFATE 2 GM/50 ML BAG IVPB (08:50)
--- NOTE | 2023-02-20 09:49 | W.PM.PROGNOT ---
Date of Service Date of service: 02/20/23 Time of Service: 09:49 Subjective Subjective Patient reports: no new complaints, pain is less and voiding w/o difficulty; denies diarrhea or vomiting Objective Last Vital Signs Temp 36.9 C 02/20/23 07:36 Pulse 96 H 02/20/23 07:36 Resp 16 02/20/23 07:36 BP 132/87 02/20/23 07:36 Pulse Ox 98 02/20/23 07:36 Laboratory Results - last 24 hr 02/19/23 02/19/23 02/19/23 20:22 20:22 20:22 WBC 16.72 H RBC 5.02 Hgb 15.6 Hct 44.2 MCV 88 MCH 31.1 MCHC 35.3 RDW 12.1 Plt Count 448 H MPV 9.3 Immature Gran % 0.5 Neutrophils % 72.6 Lymphocytes % 18.8 Monocytes % 7.8 Eosinophils % 0.1 Basophils % 0.2 Nucleated RBC % 0.0 Absolute Neutrophils 12.14 H Absolute Lymphocytes 3.14 Absolute Monocytes 1.30 H Absolute Eosinophils 0.02 Absolute Basophils 0.03 Sodium 136 Potassium 2.4 L* D Chloride 91 L Carbon Dioxide 35.0 H Anion Gap 10.0 BUN 15 Creatinine 0.7 Est GFR (CKD-EPI 2020) 114.16 Glucose 267 H Hemoglobin A1c 8.3 H Calcium 9.6 Magnesium Total Bilirubin 0.5 AST 18 ALT 21 Alkaline Phosphatase 103 Total Protein 8.2 Albumin 3.9 Lipase 48 Procalcitonin Beta HCG, Quant < 1 L Urine Color Urine Clarity Urine pH Ur Specific [place] Urine Protein Urine Ketones Urine Blood Urine Nitrite Urine Bilirubin Urine Urobilinogen Ur Leukocyte Esterase Urine RBC Urine WBC Ur Epithelial Cells Urine Crystals Urine Bacteria Urine Casts Urine Mucus Ur Culture Indicated? Urine Glucose COVID-19 Source SARS-CoV-2 (PCR) Influenza Type A (PCR) Influenza Type B (PCR) RSV (PCR) Add-On Test Request 02/19/23 02/19/23 02/20/23 20:22 22:50 04:47 WBC RBC Hgb Hct MCV MCH MCHC RDW Plt Count MPV Immature Gran % Neutrophils % Lymphocytes % Monocytes % Eosinophils % Basophils % Nucleated RBC % Absolute Neutrophils Absolute Lymphocytes Absolute Monocytes Absolute Eosinophils Absolute Basophils Sodium Potassium Chloride Carbon Dioxide Anion Gap BUN Creatinine Est GFR (CKD-EPI 2020) Glucose Hemoglobin A1c Calcium Magnesium 1.8 Total Bilirubin AST ALT Alkaline Phosphatase Total Protein Albumin Lipase Procalcitonin Beta HCG, Quant Urine Color Yellow Urine Clarity Clear Urine pH 8.5 H Ur Specific [place] 1.020 Urine Protein 100 H Urine Ketones >=160 H Urine Blood Negative Urine Nitrite Negative Urine Bilirubin Negative Urine Urobilinogen 0.2 Ur Leukocyte Esterase Negative Urine RBC Negative Urine WBC Negative Ur Epithelial Cells Many Urine Crystals Negative Urine Bacteria Rare Urine Casts Negative Urine Mucus Negative Ur Culture Indicated? No Urine Glucose 250 H COVID-19 Source Nasopharynx SARS-CoV-2 (PCR) Negative Influenza Type A (PCR) Negative Influenza Type B (PCR) Negative RSV (PCR) Negative Add-On Test Request 02/20/23 02/20/23 02/20/23 06:16 06:16 06:16 WBC 17.16 H RBC 4.58 Hgb 14.1 Hct 40.7 MCV 89 MCH 30.8 MCHC 34.6 RDW 11.9 Plt Count 406 H MPV 9.4 Immature Gran % Neutrophils % Lymphocytes % Monocytes % Eosinophils % Basophils % Nucleated RBC % Absolute Neutrophils Absolute Lymphocytes Absolute Monocytes Absolute Eosinophils Absolute Basophils Sodium 132 L Potassium 2.7 L* Chloride 94 L Carbon Dioxide 27.7 Anion Gap 10.3 BUN 13 Creatinine 0.7 Est GFR (CKD-EPI 2020) 114.16 Glucose 235 H Hemoglobin A1c Calcium 8.9 Magnesium 1.6 L Total Bilirubin 0.6 AST 17 ALT 24 Alkaline Phosphatase 94 Total Protein 7.3 Albumin 3.4 Lipase Procalcitonin Beta HCG, Quant Urine Color Urine Clarity Urine pH Ur Specific [place] Urine Protein Urine Ketones Urine Blood Urine Nitrite Urine Bilirubin Urine Urobilinogen Ur Leukocyte Esterase Urine RBC Urine WBC Ur Epithelial Cells Urine Crystals Urine Bacteria Urine Casts Urine Mucus Ur Culture Indicated? Urine Glucose COVID-19 Source SARS-CoV-2 (PCR) Influenza Type A (PCR) Influenza Type B (PCR) RSV (PCR) Add-On Test Request DONE 02/20/23 06:16 WBC RBC Hgb Hct MCV MCH MCHC RDW Plt Count MPV Immature Gran % Neutrophils % Lymphocytes % Monocytes % Eosinophils % Basophils % Nucleated RBC % Absolute Neutrophils Absolute Lymphocytes Absolute Monocytes Absolute Eosinophils Absolute Basophils Sodium Potassium Chloride Carbon Dioxide Anion Gap BUN Creatinine Est GFR (CKD-EPI 2020) Glucose Hemoglobin A1c Calcium Magnesium Total Bilirubin AST ALT Alkaline Phosphatase Total Protein Albumin Lipase Procalcitonin < 0.1 Beta HCG, Quant Urine Color Urine Clarity Urine pH Ur Specific [place] Urine Protein Urine Ketones Urine Blood Urine Nitrite Urine Bilirubin Urine Urobilinogen Ur Leukocyte Esterase Urine RBC Urine WBC Ur Epithelial Cells Urine Crystals Urine Bacteria Urine Casts Urine Mucus Ur Culture Indicated? Urine Glucose COVID-19 Source SARS-CoV-2 (PCR) Influenza Type A (PCR) Influenza Type B (PCR) RSV (PCR) Add-On Test Request PAWSS Have you Been Recently Intoxicated or Drunk Within the Last 30 days?: No Have you Ever Experienced Previous Episodes of Alcohol Withdrawal?: No Have you ever Experienced Withdrawal Seizures?: No Have you ever Experienced Delirium Tremens(DT)s?: No Have you ever undergone Alcohol Rehabilitation Treatment (i.e, inpt ot outpatient treatment programs)?: No Have you ever Experienced Blackouts?: No Have you ever Combined Alcohol with other Downers within the last 90 days?: No Have you ever Combined Alcohol with any other Substance of Abuse during the last 90 days?: No Positive Blood Alcohol level on Presentation? [PCS.BAL]: No Evidence of Increased Autonomic Activity (i.e. HR>120, tremor, sweating, agitation, nausea)?: No Result: 0
[2023-02-20 10:35] LABS: Bilirubin Negative (Negative); Blood Trace-intact (Negative); Clarity Clear (Clear); Glucose >=1000 mg/dL (Negative); Ketones >=160 mg/dL (Negative); Leukocyte Esterase Negative (Negative); Nitrite Negative (Negative); Specific Gravity 1.015 (1.005-1.025); Urobilinogen 0.2 mg/dL (Up to 0.2)
[2023-02-20 10:44] LABS: Bacteria Few HPF (Negative); C & S Indicated? No/Sq. Contamination; Casts Negative LPF (Negative); Crystals Negative HPF (Negative); Epithelial Cells Many HPF (Negative); Mucus Negative (Negative); RBC 0-2 HPF (0-2); WBC 0-2 HPF (0-5)
--- NOTE | 2023-02-20 13:31 | DSE_ITS ---
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 (5) Ulcerative esophagitis: Status: Chronic (6) Type 2 diabetes mellitus: Status: Chronic (7) Diabetic neuropathy: (8) Anxiety and depression: Discharge Plan Disposition Patient Disposition: Home Condition: Improving Discharge Details Reason For Visit: Peristent emesis, Hypokalemia, Diabetic gastropare Admit Date/Time: 02/19/23 23:27 Admit Provider: Broderick Rubi Attending Provider: Broderick Rubi Primary Care Provider: None,None Home Meds and New Rx's Prescriptions: New magnesium chloride 64 mg tablet,delayed release (DR/EC) 64 mg PO DAILY Qty: 30 0RF potassium chloride 20 mEq tablet extended release 20 meq PO BID Qty: 60 0RF Continued metoclopramide HCl [Reglan] 10 mg tablet 10 mg PO Q6H 30 Days Qty: 120 5RF Rx Instructions: take 30 minutes before meals and at bedtime omeprazole 40 mg capsule,delayed release(DR/EC) 40 mg PO DAILY Qty: 30 5RF gabapentin 300 mg Tablet 300 - 900 mg PO DIRECTED Rx Instructions: 300 qam 900 hs lorazepam 0.5 mg Tablet 0.5 mg PO DAILY insulin aspart U-100 [Novolog FlexPen U-100 Insulin] 100 unit/mL (3 mL) insulin pen 12 unit SUBCUT TID Patient Comments: INJECT 9 UNITS SUBCUTANEOUSLY THREE TIMES DAILY WITH MEALS insulin glargine [Lantus Solostar U-100 Insulin] 100 unit/mL (3 mL) insulin pen 40 unit SUBCUT HS Patient Comments: INJECT 40 UNITS SUBCUTANEOUSLY AT BEDTIME promethazine 25 mg tablet 25 mg PO TID PRN (Reason: nausea and vomiting) Qty: 7 0RF Patient Comments: not taking lidocaine [Lidoderm] 5 % adhesive patch,medicated 1 patch topical DIRECTED Patient Comments: PLACE 1 PATCH ONTO THE SKIN DAILY. PATCHE(S) MAY REMAIN IN PLACE FOR UP TO 12 HOURS IN ANY 24-HOUR PERIOD nicotine 7 mg/24 hr patch 24 hour 1 patch topical DAILY Patient Comments: APPLY 1 PATCH DAILY TOPICALLY TO SKIN WITHOUT HAIR. APPLY TO A DIFFERENT SITE AT THE SAME TIME EACH DAY, AFTER COMPLETION OF 14MG PATCHES ondansetron 4 mg tablet,disintegrating 4 mg PO Q8H PRN (Reason: nausea and vomiting) metoclopramide HCl [Reglan] 10 mg tablet 10 mg PO HS PRN (DME) Dexcom G6 Sensor Device See Rx Instructions .Route Qty: 6 0RF Rx Instructions: As directed Jardiance 10 mg Tablet 10 mg PO DAILY Qty: 30 0RF tramadol 50 mg Tablet 50 mg PO Q6H PRN PRNQty: 30 0RF promethazine 25 mg suppository 25 mg FL Q6H PRN (Reason: nausea and vomiting) Qty: 12 0RF Discharge Instructions Stand Alone Forms: Nursing Discharge Form Activity:: Activity as Tolerated Equipment/Supplies:: No Equipment Needed Diet:: Carb Counting DS: Data Vitals/I&O Vitals and I&O: Vital Signs Temperature 36.9 C 02/20/23 07:36 Temperature Source Tympanic 02/20/23 07:36 Pulse 96 H 02/20/23 07:36 Pulse Rhythm Regular 02/20/23 07:30 Pulse 109 H 02/20/23 00:02 Respiratory Rate 16 02/20/23 07:36 Respiratory Effort Normal, Non-Labored 02/20/23 07:30 Respiratory Depth Normal 02/20/23 07:30 Respiratory Pattern Normal 02/20/23 07:30 Blood Pressure 132/87 02/20/23 07:36 Blood Pressure Mean 87 02/20/23 00:00 Blood Pressure Position Sitting 02/19/23 20:06 Pulse Oximetry 98 02/20/23 07:36 Oxygen Delivery Method Room Air 02/20/23 07:36 Oxygen Flow Rate 0 02/20/23 07:36 Pain Level 0 02/20/23 07:36 Intake & Output 02/19/23 02/20/23 02/20/23 23:59 11:59 23:59 Intake Total 1100 / 1100 1495.0 / 1495.0 Balance 1100 / 1100 1495.0 / 1495.0 Weight 83.915 kg 89.811 kg Intake: IV 1100 / 1100 995.0 / 995.0 Oral 500 / 500 Other: Urine Appearance Clear Emesis Description None Data Completed and Pending Labs on day of discharge: Labs from last 24 hours 02/20/23 02/20/23 02/20/23 13:17 10:15 06:16 WBC RBC Hgb Hct MCV MCH MCHC RDW Plt Count MPV Immature Gran % Neutrophils % Lymphocytes % Monocytes % Eosinophils % Basophils % Nucleated RBC % Absolute Neutrophils Absolute Lymphocytes Absolute Monocytes Absolute Eosinophils Absolute Basophils Sodium Potassium Pending Chloride Carbon Dioxide Anion Gap BUN Creatinine Est GFR (CKD-EPI 2020) Glucose Hemoglobin A1c Calcium Magnesium Total Bilirubin AST ALT Alkaline Phosphatase Total Protein Albumin Lipase Procalcitonin < 0.1 Beta HCG, Quant Urine Color Yellow Urine Clarity Clear Urine pH 7.0 Ur Specific [place] 1.015 Urine Protein Negative Urine Ketones >=160 H Urine Blood Trace-intact H Urine Nitrite Negative Urine Bilirubin Negative Urine Urobilinogen 0.2 Ur Leukocyte Esterase Negative Urine RBC 0-2 Urine WBC 0-2 Ur Epithelial Cells Many Urine Crystals Negative Urine Bacteria Few Urine Casts Negative Urine Mucus Negative Ur Culture Indicated? No/Sq. Contamination Urine Glucose >=1000 H COVID-19 Source SARS-CoV-2 (PCR) Influenza Type A (PCR) Influenza Type B (PCR) RSV (PCR) Add-On Test Request 02/20/23 02/20/23 02/20/23 06:16 06:16 06:16 WBC 17.16 H RBC 4.58 Hgb 14.1 Hct 40.7 MCV 89 MCH 30.8 MCHC 34.6 RDW 11.9 Plt Count 406 H MPV 9.4 Immature Gran % Neutrophils % Lymphocytes % Monocytes % Eosinophils % Basophils % Nucleated RBC % Absolute Neutrophils Absolute Lymphocytes Absolute Monocytes Absolute Eosinophils Absolute Basophils Sodium 132 L Potassium 2.7 L* Chloride 94 L Carbon Dioxide 27.7 Anion Gap 10.3 BUN 13 Creatinine 0.7 Est GFR (CKD-EPI 2020) 114.16 Glucose 235 H Hemoglobin A1c Calcium 8.9 Magnesium 1.6 L Total Bilirubin 0.6 AST 17 ALT 24 Alkaline Phosphatase 94 Total Protein 7.3 Albumin 3.4 Lipase Procalcitonin Beta HCG, Quant Urine Color Urine Clarity Urine pH Ur Specific [place] Urine Protein Urine Ketones Urine Blood Urine Nitrite Urine Bilirubin Urine Urobilinogen Ur Leukocyte Esterase Urine RBC Urine WBC Ur Epithelial Cells Urine Crystals Urine Bacteria Urine Casts Urine Mucus Ur Culture Indicated? Urine Glucose COVID-19 Source SARS-CoV-2 (PCR) Influenza Type A (PCR) Influenza Type B (PCR) RSV (PCR) Add-On Test Request DONE 02/20/23 02/19/23 02/19/23 04:47 22:50 20:22 WBC RBC Hgb Hct MCV MCH MCHC RDW Plt Count MPV Immature Gran % Neutrophils % Lymphocytes % Monocytes % Eosinophils % Basophils % Nucleated RBC % Absolute Neutrophils Absolute Lymphocytes Absolute Monocytes Absolute Eosinophils Absolute Basophils Sodium Potassium Chloride Carbon Dioxide Anion Gap BUN Creatinine Est GFR (CKD-EPI 2020) Glucose Hemoglobin A1c Calcium Magnesium 1.8 Total Bilirubin AST ALT Alkaline Phosphatase Total Protein Albumin Lipase Procalcitonin Beta HCG, Quant Urine Color Yellow Urine Clarity Clear Urine pH 8.5 H Ur Specific [place] 1.020 Urine Protein 100 H Urine Ketones >=160 H Urine Blood Negative Urine Nitrite Negative Urine Bilirubin Negative Urine Urobilinogen 0.2 Ur Leukocyte Esterase Negative Urine RBC Negative Urine WBC Negative Ur Epithelial Cells Many Urine Crystals Negative Urine Bacteria Rare Urine Casts Negative Urine Mucus Negative Ur Culture Indicated? No Urine Glucose 250 H COVID-19 Source Nasopharynx SARS-CoV-2 (PCR) Negative Influenza Type A (PCR) Negative Influenza Type B (PCR) Negative RSV (PCR) Negative Add-On Test Request 02/19/23 02/19/23 02/19/23 20:22 20:22 20:22 WBC 16.72 H RBC 5.02 Hgb 15.6 Hct 44.2 MCV 88 MCH 31.1 MCHC 35.3 RDW 12.1 Plt Count 448 H MPV 9.3 Immature Gran % 0.5 Neutrophils % 72.6 Lymphocytes % 18.8 Monocytes % 7.8 Eosinophils % 0.1 Basophils % 0.2 Nucleated RBC % 0.0 Absolute Neutrophils 12.14 H Absolute Lymphocytes 3.14 Absolute Monocytes 1.30 H Absolute Eosinophils 0.02 Absolute Basophils 0.03 Sodium 136 Potassium 2.4 L* D Chloride 91 L Carbon Dioxide 35.0 H Anion Gap 10.0 BUN 15 Creatinine 0.7 Est GFR (CKD-EPI 2020) 114.16 Glucose 267 H Hemoglobin A1c 8.3 H Calcium 9.6 Magnesium Total Bilirubin 0.5 AST 18 ALT 21 Alkaline Phosphatase 103 Total Protein 8.2 Albumin 3.9 Lipase 48 Procalcitonin Beta HCG, Quant < 1 L Urine Color Urine Clarity Urine pH Ur Specific [place] Urine Protein Urine Ketones Urine Blood Urine Nitrite Urine Bilirubin Urine Urobilinogen Ur Leukocyte Esterase Urine RBC Urine WBC Ur Epithelial Cells Urine Crystals Urine Bacteria Urine Casts Urine Mucus Ur Culture Indicated? 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 (Chronic) Abdominal pain (Acute) Ulcerative esophagitis (Chronic) Chronic nausea (Acute) Calf pain (Acute) Cellulitis of foot (Acute) Diabetic toe ulcer (Acute) Abscess (Acute) Vomiting (Acute) Gastroparesis (Chronic) Vomiting (Acute) Acute dehydration (Acute) Nausea and vomiting (Acute) IDDM (insulin dependent diabetes mellitus) (Chronic) Tobacco abuse (Acute) Cannabinoid hyperemesis syndrome (Acute) Upper GI bleeding (Acute) UTI (urinary tract infection) (Acute) Hypokalemia (Acute) Type 2 diabetes mellitus (Chronic) Type 2 diabetes mellitus with diabetic neuropathy (Chronic) Ulcer of other part of foot (Acute) Amputation of toe of left foot (Acute) Infection of toe (Acute) Osteomyelitis (Acute) Medical History Anxiety and depression Back pain Cellulitis of third toe, left Chest pain r/t Anxiety Diabetes Type 1, per patient she said she was told she had diabetes type 2. Diabetic neuropathy History of cellulitis toe History of kidney stones History of osteomyelitis IBS (irritable bowel syndrome) Peripheral neuropathy Suicide attempt Surgical History Amputation of left great toe H/O tubal ligation History of amputation 2nd toe left foot Family History Paternal Grandmother Heart disease Diabetes Maternal Aunt Hypertension Breast cancer maternal great aunt Maternal Grandfather Hypertension Maternal Grandmother Breast cancer Maternal Aunt No problems noted. Maternal Cousin Breast cancer Maternal Cousin Breast cancer Maternal Cousin Breast cancer Social History Smoking/Tobacco Use Status: Current every day Tobacco Type: cigarettes Smoking risk assessment performed?: Yes Alcohol Intake: current Alcohol Intake frequency: holidays/special occasions only Drug use: Daily Substance use type: marijuana Details: last marijuana was last week Housing: house Do you feel safe at home: Yes Do you feel safe in your relationship?: Yes
[2023-02-20 13:35] LABS: Potassium 2.7 mmol/L (3.5-5.1)
--- NOTE | 2023-02-20 13:42 | PDOC.CMIN ---
Date of service: 02/20/23 Time of Service: 13:42 Care Management Initial Assmt Initial Assessment REASON FOR HOSPITALIZATION:: Persistent emesis, hypokalemia, diabetic gastroparalysis PREVIOUS FUNCTIONAL STATUS/SOCIAL/FAMILY SUPPORTS:: Cristy lives in [place] with her , Fermin and their three children. They relocated to [place] from [place] about a year and a half ago. They live in a large [facility] home, which is multi generational, as her mother in law and mother in law's sister also live with them. 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 CURRENT FUNCTIONAL STATUS:: Stella was lying in bed when CM met with her. She stated that things are going well, and she is expecting to be discharged soon. Per report, her potassium remains very low, but Stella is insistent on being discharged as she has plans later this evening. Her potassium is being replaced, and her labs are scheduled to be repeated. CM will continue to follow. ADVANCE DIRECTIVES:: Not on file; CM will offer forms. Has patient been provided with info about the portal/API?: Yes Did the patient sign up for the portal?: No CODE STATUS:: Full Code INSURANCE COVERAGE / FINANCIAL ISSUES:: BC/BS. JYOTI. CURRENT HOME/COMMUNITY SERVICES/EQUIPMENT:: None. PRIMARY CARE PHYSICIAN:: Stella is still connected with her PCP in [place], although she has been trying to get into the [place] [facility]. POTENTIAL DISCHARGE NEEDS:: Follow up appointments. PATIENT/FAMILY EDUCATION NEEDS:: Review discharge instructions and limitations, discussion of self care needs including ask me three. ANTICIPATED BARRIERS TO DISCHARGE:: None. TRANSPORTATION:: Via private vehicle by family. PLAN:: Anticipate Stella will return home once medically cleared. Her will drive her home via private vehicle. She will follow up with her PCP and discharge plan of care. CM will continue to follow. 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 (Chronic) Abdominal pain (Acute) Ulcerative esophagitis (Chronic) Chronic nausea (Acute) Calf pain (Acute) Cellulitis of foot (Acute) Diabetic toe ulcer (Acute) Abscess (Acute) Vomiting (Acute) Gastroparesis (Chronic) Vomiting (Acute) Acute dehydration (Acute) Nausea and vomiting (Acute) IDDM (insulin dependent diabetes mellitus) (Chronic) Tobacco abuse (Acute) Cannabinoid hyperemesis syndrome (Acute) Upper GI bleeding (Acute) UTI (urinary tract infection) (Acute) Hypokalemia (Acute) Type 2 diabetes mellitus (Chronic) Type 2 diabetes mellitus with diabetic neuropathy (Chronic) Ulcer of other part of foot (Acute) Amputation of toe of left foot (Acute) Infection of toe (Acute) Osteomyelitis (Acute) Medical History Anxiety and depression Back pain Cellulitis of third toe, left Chest pain r/t Anxiety Diabetes Type 1, per patient she said she was told she had diabetes type 2. Diabetic neuropathy History of cellulitis toe History of kidney stones History of osteomyelitis IBS (irritable bowel syndrome) Peripheral neuropathy Suicide attempt Surgical History Amputation of left great toe H/O tubal ligation History of amputation 2nd toe left foot Family History Paternal Grandmother Heart disease Diabetes Maternal Aunt Hypertension Breast cancer maternal great aunt Maternal Grandfather Hypertension Maternal Grandmother Breast cancer Maternal Aunt No problems noted. Maternal Cousin Breast cancer Maternal Cousin Breast cancer Maternal Cousin Breast cancer Social History Smoking/Tobacco Use Status: Current every day Tobacco Type: cigarettes Smoking risk assessment performed?: Yes Alcohol Intake: current Alcohol Intake frequency: holidays/special occasions only Drug use: Daily Substance use type: marijuana Details: last marijuana was last week Housing: house Do you feel safe at home: Yes Do you feel safe in your relationship?: Yes
[2023-02-20] MEDS: Potassium Chloride 10 MEQ CAPCR 40 MEQ PO (13:55)
[2023-02-20 17:17] LABS: Potassium 3.4 mmol/L (3.5-5.1)
--- NOTE | 2023-02-20 17:18 | W.PM.DS.N ---
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 (5) Ulcerative esophagitis: Status: Chronic (6) Type 2 diabetes mellitus: Status: Chronic (7) Diabetic neuropathy: (8) Anxiety and depression: Discharge Plan Disposition Patient Disposition: Home Condition: Improving Discharge Details Reason For Visit: Peristent emesis, Hypokalemia, Diabetic gastropare Admit Date/Time: 02/19/23 23:27 Admit Provider: Broderick Rubi Attending Provider: Broderick Rubi Primary Care Provider: None,None Hospital Course Hospital Course: This is a 37 uear old female patient with past medical history of T2DM, gastroparesis, cannabis use, who presented to the [facility] ED for 3-4 days of nausea and vomiting.? She was seen in the [facility] ED yesterday, 02/19, for same. CT of the abdomen on 02/19 negative. Patient reported she was unable? to keep down fluids at home despite home zofran & reglan, question of some small flecks of blood in the emesis.? Described symptoms as similar to prior episodes related to her gastroparesis; may have component of cannaboid hyperemsis as well.? In the ED, patient was in sinus tachycardia to 110's and had dry MM and was given an IV fluid bolus, and IV droperidol for nausea.? Labs: leukoctyosis to 16, no anemia, markedly hypokalemic to 2.4 and alkalotic to 25 consistant with frequent vomiting.? Mild hyperglycemia to 267, normal gap; not in DKA.? IV and PO potassium given in the ED. Patiient was placed on observation status overnight for hydration, continued IV potassium repletion.? Magnesium and potassium were repleted, potassium up to 3.4 on discharge. She was hydrated, taking nourishment, no nausea and no vomiting. She was discharged to home with prescription for potassium 20 meq twice a day, magnesium 64 mg daily with recommendation to have BMP checked in 3 days (results to PCP). Ondansetron per patient request, works for her for nausea. Patient was discharged to home with stable. Home Meds and New Rx's Prescriptions: New magnesium chloride 64 mg tablet,delayed release (DR/EC) 64 mg PO DAILY Qty: 30 0RF potassium chloride 20 mEq tablet extended release 20 meq PO BID Qty: 60 0RF ondansetron 4 mg tablet,disintegrating 4 mg PO Q6H PRNQty: 60 0RF Continued metoclopramide HCl [Reglan] 10 mg tablet 10 mg PO Q6H 30 Days Qty: 120 5RF Rx Instructions: take 30 minutes before meals and at bedtime omeprazole 40 mg capsule,delayed release(DR/EC) 40 mg PO DAILY Qty: 30 5RF gabapentin 300 mg Tablet 300 - 900 mg PO DIRECTED Rx Instructions: 300 qam 900 hs lorazepam 0.5 mg Tablet 0.5 mg PO DAILY insulin aspart U-100 [Novolog FlexPen U-100 Insulin] 100 unit/mL (3 mL) insulin pen 12 unit SUBCUT TID Patient Comments: INJECT 9 UNITS SUBCUTANEOUSLY THREE TIMES DAILY WITH MEALS insulin glargine [Lantus Solostar U-100 Insulin] 100 unit/mL (3 mL) insulin pen 40 unit SUBCUT HS Patient Comments: INJECT 40 UNITS SUBCUTANEOUSLY AT BEDTIME promethazine 25 mg tablet 25 mg PO TID PRN (Reason: nausea and vomiting) Qty: 7 0RF Patient Comments: not taking lidocaine [Lidoderm] 5 % adhesive patch,medicated 1 patch topical DIRECTED Patient Comments: PLACE 1 PATCH ONTO THE SKIN DAILY. PATCHE(S) MAY REMAIN IN PLACE FOR UP TO 12 HOURS IN ANY 24-HOUR PERIOD nicotine 7 mg/24 hr patch 24 hour 1 patch topical DAILY Patient Comments: APPLY 1 PATCH DAILY TOPICALLY TO SKIN WITHOUT HAIR. APPLY TO A DIFFERENT SITE AT THE SAME TIME EACH DAY, AFTER COMPLETION OF 14MG PATCHES ondansetron 4 mg tablet,disintegrating 4 mg PO Q8H PRN (Reason: nausea and vomiting) metoclopramide HCl [Reglan] 10 mg tablet 10 mg PO HS PRN (DME) Dexcom G6 Sensor Device See Rx Instructions .Route Qty: 6 0RF Rx Instructions: As directed Jardiance 10 mg Tablet 10 mg PO DAILY Qty: 30 0RF tramadol 50 mg Tablet 50 mg PO Q6H PRN PRNQty: 30 0RF promethazine 25 mg suppository 25 mg FL Q6H PRN (Reason: nausea and vomiting) Qty: 12 0RF Discharge Instructions Instructions: Hypokalemia (DC), Hypomagnesemia (DC) Stand Alone Forms: Nursing Discharge Form Referrals: None,None [Primary Care Provider] - (Follow up with PCP Hypokalemia/hypomagnesemia - BMP in 3 d results to PCP) Activity:: Activity as Tolerated Equipment/Supplies:: No Equipment Needed Diet:: Carb Counting Discharge Orders Discharge Orders: Discharge Order (Routine); Ordered 02/20/23 Ordered By: Lara Mcmullen Other Ambulatory Orders: Basic Metabolic Panel (Routine) Timeframe: 3 Days Location: None Selected Ordered By: Lara Mcmullen Complete Blood Count w/Diff (Routine) Timeframe: 3 Days Location: None Selected Ordered By: Lara Mcmullen Magnesium (Routine) Timeframe: 3 Days Location: None Selected Ordered By: Lara Mcmullen DS: Summary Time Spent with Patient providing and/or coordinating discharge services: Greater than 30 minutes Status at Discharge Functional status at discharge: independent ambulation Overall status at discharge: patient is back to baseline Mental Status: mental status grossly normal Speech and Movement: speech and movement normal Mood: congruent mood Affect: normal affect Exam Narrative Exam Narrative: General: Patient appears appropriate for age, morbidly obese especially over the trunk, alert and oriented, pleasant HEENT: Normocephalic, eyes with pupils equal react light symmetrically, extraocular movement, sclera anicteric. Oropharynx moist, poor dentition Neck: Supple without JVD. Back: Kyphotic without CVA tenderness. Lungs: Fair aeration clear to auscultation with clear bilat breath sounds Heart: Regular rate and rhythm with no murmurs or gallops appreciated. Abdomen: Obese contour, soft nontender to palpation with no palpable hepatosplenomegaly. Bowel sounds positive all quadrants. Genitalia/rectal: Exam deferred. Extremities: Clubbing, cyanosis or pitting edema. Patient does have amputation of her left large toe with clean scar. Cap refill. Skin: Pale, warm and dry. Neuro: Cranial nerves II through XII grossly intact, no focalizing motor deficits. No tremor. Patient does have decreased sensation to fine touch over lower extremities. Psych: Alert, pleasant, no abnormal thought processes. Remote and recent memory intact. Psych Mental Status: mental status grossly normal Speech and Movement: speech and movement normal Mood: congruent mood Affect: normal affect DS: Data Vitals/I&O Vitals and I&O: Vital Signs Temperature 36.9 C 02/20/23 07:36 Temperature Source Tympanic 02/20/23 07:36 Pulse 96 H 02/20/23 07:36 Pulse Rhythm Regular 02/20/23 16:56 Pulse 109 H 02/20/23 00:02 Respiratory Rate 16 02/20/23 07:36 Respiratory Effort Normal, Non-Labored 02/20/23 16:56 Respiratory Depth Normal 02/20/23 16:56 Respiratory Pattern Normal 02/20/23 16:56 Blood Pressure 132/87 02/20/23 07:36 Blood Pressure Mean 87 02/20/23 00:00 Blood Pressure Position Sitting 02/19/23 20:06 Pulse Oximetry 98 02/20/23 07:36 Oxygen Delivery Method Room Air 02/20/23 07:36 Oxygen Flow Rate 0 02/20/23 07:36 Pain Level 0 02/20/23 07:36 Intake & Output 02/19/23 02/20/23 02/20/23 23:59 11:59 23:59 Intake Total 1100 / 1100 1495.0 / 2090.0 595.0 / 2090.0 Balance 1100 / 1100 1495.0 / 2090.0 595.0 / 2090.0 Weight 83.915 kg 89.811 kg Intake: IV 1100 / 1100 995.0 / 1350.0 355.0 / 1350.0 Oral 500 / 740 240 / 740 Other: Urine Appearance Clear Clear Emesis Description None Data Completed and Pending Labs on day of discharge: Labs from last 24 hours 02/20/23 02/20/23 02/20/23 17:05 13:17 10:15 WBC RBC Hgb Hct MCV MCH MCHC RDW Plt Count MPV Immature Gran % Neutrophils % Lymphocytes % Monocytes % Eosinophils % Basophils % Nucleated RBC % Absolute Neutrophils Absolute Lymphocytes Absolute Monocytes Absolute Eosinophils Absolute Basophils Sodium Potassium 3.4 L 2.7 L* Chloride Carbon Dioxide Anion Gap BUN Creatinine Est GFR (CKD-EPI 2020) Glucose Hemoglobin A1c Calcium Magnesium Total Bilirubin AST ALT Alkaline Phosphatase Total Protein Albumin Lipase Procalcitonin Beta HCG, Quant Urine Color Yellow Urine Clarity Clear Urine pH 7.0 Ur Specific [place] 1.015 Urine Protein Negative Urine Ketones >=160 H Urine Blood Trace-intact H Urine Nitrite Negative Urine Bilirubin Negative Urine Urobilinogen 0.2 Ur Leukocyte Esterase Negative Urine RBC 0-2 Urine WBC 0-2 Ur Epithelial Cells Many Urine Crystals Negative Urine Bacteria Few Urine Casts Negative Urine Mucus Negative Ur Culture Indicated? No/Sq. Contamination Urine Glucose >=1000 H COVID-19 Source SARS-CoV-2 (PCR) Influenza Type A (PCR) Influenza Type B (PCR) RSV (PCR) Add-On Test Request 02/20/23 02/20/23 02/20/23 06:16 06:16 06:16 WBC 17.16 H RBC 4.58 Hgb 14.1 Hct 40.7 MCV 89 MCH 30.8 MCHC 34.6 RDW 11.9 Plt Count 406 H MPV 9.4 Immature Gran % Neutrophils % Lymphocytes % Monocytes % Eosinophils % Basophils % Nucleated RBC % Absolute Neutrophils Absolute Lymphocytes Absolute Monocytes Absolute Eosinophils Absolute Basophils Sodium Potassium Chloride Carbon Dioxide Anion Gap BUN Creatinine Est GFR (CKD-EPI 2020) Glucose Hemoglobin A1c Calcium Magnesium Total Bilirubin AST ALT Alkaline Phosphatase Total Protein Albumin Lipase Procalcitonin < 0.1 Beta HCG, Quant Urine Color Urine Clarity Urine pH Ur Specific [place] Urine Protein Urine Ketones Urine Blood Urine Nitrite Urine Bilirubin Urine Urobilinogen Ur Leukocyte Esterase Urine RBC Urine WBC Ur Epithelial Cells Urine Crystals Urine Bacteria Urine Casts Urine Mucus Ur Culture Indicated? Urine Glucose COVID-19 Source SARS-CoV-2 (PCR) Influenza Type A (PCR) Influenza Type B (PCR) RSV (PCR) Add-On Test Request DONE 02/20/23 02/20/23 02/19/23 06:16 04:47 22:50 WBC RBC Hgb Hct MCV MCH MCHC RDW Plt Count MPV Immature Gran % Neutrophils % Lymphocytes % Monocytes % Eosinophils % Basophils % Nucleated RBC % Absolute Neutrophils Absolute Lymphocytes Absolute Monocytes Absolute Eosinophils Absolute Basophils Sodium 132 L Potassium 2.7 L* Chloride 94 L Carbon Dioxide 27.7 Anion Gap 10.3 BUN 13 Creatinine 0.7 Est GFR (CKD-EPI 2020) 114.16 Glucose 235 H Hemoglobin A1c Calcium 8.9 Magnesium 1.6 L Total Bilirubin 0.6 AST 17 ALT 24 Alkaline Phosphatase 94 Total Protein 7.3 Albumin 3.4 Lipase Procalcitonin Beta HCG, Quant Urine Color Yellow Urine Clarity Clear Urine pH 8.5 H Ur Specific [place] 1.020 Urine Protein 100 H Urine Ketones >=160 H Urine Blood Negative Urine Nitrite Negative Urine Bilirubin Negative Urine Urobilinogen 0.2 Ur Leukocyte Esterase Negative Urine RBC Negative Urine WBC Negative Ur Epithelial Cells Many Urine Crystals Negative Urine Bacteria Rare Urine Casts Negative Urine Mucus Negative Ur Culture Indicated? No Urine Glucose 250 H COVID-19 Source Nasopharynx SARS-CoV-2 (PCR) Negative Influenza Type A (PCR) Negative Influenza Type B (PCR) Negative RSV (PCR) Negative Add-On Test Request 02/19/23 02/19/23 02/19/23 20:22 20:22 20:22 WBC 16.72 H RBC 5.02 Hgb 15.6 Hct 44.2 MCV 88 MCH 31.1 MCHC 35.3 RDW 12.1 Plt Count 448 H MPV 9.3 Immature Gran % 0.5 Neutrophils % 72.6 Lymphocytes % 18.8 Monocytes % 7.8 Eosinophils % 0.1 Basophils % 0.2 Nucleated RBC % 0.0 Absolute Neutrophils 12.14 H Absolute Lymphocytes 3.14 Absolute Monocytes 1.30 H Absolute Eosinophils 0.02 Absolute Basophils 0.03 Sodium Potassium Chloride Carbon Dioxide Anion Gap BUN Creatinine Est GFR (CKD-EPI 2020) Glucose Hemoglobin A1c 8.3 H Calcium Magnesium 1.8 Total Bilirubin AST ALT Alkaline Phosphatase Total Protein Albumin Lipase Procalcitonin Beta HCG, Quant Urine Color Urine Clarity Urine pH Ur Specific [place] Urine Protein Urine Ketones Urine Blood Urine Nitrite Urine Bilirubin Urine Urobilinogen Ur Leukocyte Esterase Urine RBC Urine WBC Ur Epithelial Cells Urine Crystals Urine Bacteria Urine Casts Urine Mucus Ur Culture Indicated? Urine Glucose COVID-19 Source SARS-CoV-2 (PCR) Influenza Type A (PCR) Influenza Type B (PCR) RSV (PCR) Add-On Test Request 02/19/23 20:22 WBC RBC Hgb Hct MCV MCH MCHC RDW Plt Count MPV Immature Gran % Neutrophils % Lymphocytes % Monocytes % Eosinophils % Basophils % Nucleated RBC % Absolute Neutrophils Absolute Lymphocytes Absolute Monocytes Absolute Eosinophils Absolute Basophils Sodium 136 Potassium 2.4 L* D Chloride 91 L Carbon Dioxide 35.0 H Anion Gap 10.0 BUN 15 Creatinine 0.7 Est GFR (CKD-EPI 2020) 114.16 Glucose 267 H Hemoglobin A1c Calcium 9.6 Magnesium Total Bilirubin 0.5 AST 18 ALT 21 Alkaline Phosphatase 103 Total Protein 8.2 Albumin 3.9 Lipase 48 Procalcitonin Beta HCG, Quant < 1 L Urine Color Urine Clarity Urine pH Ur Specific [place] Urine Protein Urine Ketones Urine Blood Urine Nitrite Urine Bilirubin Urine Urobilinogen Ur Leukocyte Esterase Urine RBC Urine WBC Ur Epithelial Cells Urine Crystals Urine Bacteria Urine Casts Urine Mucus Ur Culture Indicated? Urine Glucose COVID-19 Source SARS-CoV-2 (PCR) Influenza Type A (PCR) Influenza Type B (PCR) RSV (PCR) Add-On Test Request PFSH All Active Problems (Updated 02/20/23 @ 17:21 by Lara Mcmullen NP) Leukocytosis (Acute) Hypomagnesemia (Acute) Hypochloremic alkalosis (Acute) Emesis, persistent (Acute) Gastroparalysis due to secondary diabetes (Chronic) Abdominal pain (Acute) Ulcerative esophagitis (Chronic) Chronic nausea (Acute) Calf pain (Acute) Cellulitis of foot (Acute) Diabetic toe ulcer (Acute) Abscess (Acute) Vomiting (Acute) Gastroparesis (Chronic) Vomiting (Acute) Acute dehydration (Acute) Nausea and vomiting (Acute) IDDM (insulin dependent diabetes mellitus) (Chronic) Tobacco abuse (Acute) Cannabinoid hyperemesis syndrome (Acute) Upper GI bleeding (Acute) UTI (urinary tract infection) (Acute) Hypokalemia (Acute) Type 2 diabetes mellitus (Chronic) Type 2 diabetes mellitus with diabetic neuropathy (Chronic) Ulcer of other part of foot (Acute) Amputation of toe of left foot (Acute) Infection of toe (Acute) Osteomyelitis (Acute) Medical History Anxiety and depression Back pain Cellulitis of third toe, left Chest pain r/t Anxiety Diabetes Type 1, per patient she said she was told she had diabetes type 2. Diabetic neuropathy History of cellulitis toe History of kidney stones History of osteomyelitis IBS (irritable bowel syndrome) Peripheral neuropathy Suicide attempt Surgical History Amputation of left great toe H/O tubal ligation History of amputation 2nd toe left foot Family History Paternal Grandmother Heart disease Diabetes Maternal Aunt Hypertension Breast cancer maternal great aunt Maternal Grandfather Hypertension Maternal Grandmother Breast cancer Maternal Aunt No problems noted. Maternal Cousin Breast cancer Maternal Cousin Breast cancer Maternal Cousin Breast cancer Social History Smoking/Tobacco Use Status: Current every day Tobacco Type: cigarettes Smoking risk assessment performed?: Yes Alcohol Intake: current Alcohol Intake frequency: holidays/special occasions only Drug use: Daily Substance use type: marijuana Details: last marijuana was last week Housing: house Do you feel safe at home: Yes Do you feel safe in your relationship?: Yes Time Spent with Patient Time Spent with Patient: 70-84 minutes4 Time was spent: preparing to see the patient(eg.review tests), ordering medications,tests, procedures, referring, communicating with other health district manager primary care sales, indepentently interpreting results, counseling the patient and care coordination
== END 2023-02-20 18:11 | disposition home or self-care (01) | DRG 74 ==
LOC: ER 02-20 → MS 02-20 00:20
PROVIDERS: Internal Medicine; Nurse Practitioner Family; Admitting Provider Family Medicine; Emergency Provider Student in an Organized Health Care Education/Training Program; Visit Provider Family Medicine
DX: E11.43 Type 2 diabetes mellitus with diabetic autonomic (poly)neuropathy (principal); E87.3 Alkalosis; K22.10 Ulcer of esophagus without bleeding; R11.2 Nausea with vomiting, unspecified; E87.6 Hypokalemia; E83.42 Hypomagnesemia; Z79.4 Long term (current) use of insulin; K31.84 Gastroparesis; F12.90 Cannabis use, unspecified, uncomplicated; M54.50 Low back pain, unspecified; E11.65 Type 2 diabetes mellitus with hyperglycemia; F17.210 Nicotine dependence, cigarettes, uncomplicated; E86.0 Dehydration; F41.8 Other specified anxiety disorders; K58.9 Irritable bowel syndrome, unspecified; Z89.422 Acquired absence of other left toe(s); Z87.442 Personal history of urinary calculi; E66.3 Overweight; Z68.34 Body mass index [BMI] 34.0-34.9, adult; D72.829 Elevated white blood cell count, unspecified
CPT/HCPCS: 36415; 80053; 83690; 84145; 85027; 87637; 96361; 96374; 99285; J1650; 81003; 81015; 83036; 83735; 84132; 84702; 85025; 99223; 99239; J1790; J3480; J3490

== ENCOUNTER 2023-02-25 13:15 | Emergency (ER) | payer BC, MEDICAID, SELFPAY ==
--- NOTE | 2023-02-25 13:15 | RT.EKG_ITS ---
APPROVED REPORT Exam: Resting ECG Reason for Exam: chest tightness Patient Location: E HR:106 bpm ECG Measurements Heart Rate 106 AXIS MT 133 P 62 QRSd 83 QRS 25 QT 324 T 37 QTc 430 Conclusion Sinus tachycardia...rate> 99 Narrow complex sinus tachycardia at a rate of 106. Normal axis. Intervals within normal limits. No ST segment abnormalities. No T wave inversions. T wave flattening in lead III. Appears similar to prior with the exception of sinus tachycardia. Prior dated last week. No acute injury pattern.
[2023-02-25 13:37] VITALS: BP 129/95; PULSE 105; RESP 20; O2SAT 100
--- NOTE | 2023-02-25 13:37 | ED.GENADUL_ITS ---
Discharge Plan Discharge Details Chief Complaint: Abd Prob Clinical Impression: Nausea and vomiting, Acute hyponatremia Primary Care Provider: [facility],Local ED Provider: Fermin Lyons [place] Meds and New Rx's Prescriptions: No Action metoclopramide HCl [Reglan] 10 mg tablet 10 mg PO Q6H 30 Days Qty: 120 5RF Rx Instructions: take 30 minutes before meals and at bedtime omeprazole 40 mg capsule,delayed release(DR/EC) 40 mg PO DAILY Qty: 30 5RF gabapentin 300 mg Tablet 300 - 900 mg PO DIRECTED Rx Instructions: 300 qam 900 hs lorazepam 0.5 mg Tablet 0.5 mg PO DAILY insulin aspart U-100 [Novolog FlexPen U-100 Insulin] 100 unit/mL (3 mL) in sulin pen 12 unit SUBCUT TID Patient Comments: INJECT 9 UNITS SUBCUTANEOUSLY THREE TIMES DAILY WITH MEALS insulin glargine [Lantus Solostar U-100 Insulin] 100 unit/mL (3 mL) insulin pen 40 unit SUBCUT HS Patient Comments: INJECT 40 UNITS SUBCUTANEOUSLY AT BEDTIME promethazine 25 mg tablet 25 mg PO TID PRN (Reason: nausea and vomiting) Qty: 7 0RF Patient Comments: not taking lidocaine [Lidoderm] 5 % adhesive patch,medicated 1 patch topical DIRECTED Patient Comments: PLACE 1 PATCH ONTO THE SKIN DAILY. PATCHE(S) MAY REMAIN IN PLACE FOR UP TO 12 HOURS IN ANY 24-HOUR PERIOD nicotine 7 mg/24 hr patch 24 hour 1 patch topical DAILY Patient Comments: APPLY 1 PATCH DAILY TOPICALLY TO SKIN WITHOUT HAIR. APPLY TO A DIFFERENT SITE AT THE SAME TIME EACH DAY, AFTER COMPLETION OF 14MG PATCHES ondansetron 4 mg tablet,disintegrating 4 mg PO Q8H PRN (Reason: nausea and vomiting) metoclopramide HCl [Reglan] 10 mg tablet 10 mg PO HS PRN (DME) Dexcom G6 Sensor Device See Rx Instructions .Route Qty: 6 0RF Rx Instructions: As directed Jardiance 10 mg Tablet 10 mg PO DAILY Qty: 30 0RF tramadol 50 mg Tablet 50 mg PO Q6H PRN PRNQty: 30 0RF promethazine 25 mg suppository 25 mg VT Q6H PRN (Reason: nausea and vomiting) Qty: 12 0RF magnesium chloride 64 mg tablet,delayed release (DR/EC) 64 mg PO DAILY Qty: 30 0RF potassium chloride 20 mEq tablet extended release 20 meq PO BID Qty: 60 0RF ondansetron 4 mg tablet,disintegrating 4 mg PO Q6H PRNQty: 60 0RF Medical Decision Making HPI This is a 37-year-old female with a history of cannabinoid hyperemesis syndrome and diabetes and gastroparesis arrived to the emergency department via private vehicle in the setting of nausea and vomiting. Patient reports that she was hospitalized 8 days ago. She said that she was discharged several days later and was feeling well for several days. 2 nights ago she began vomiting again. She reported that she could not take her potassium and magnesium supplementation. She reports that she has not had anything to eat in the past 2 days. She has been drinking water. She has a discomfort in her throat. She also endorses a squeezing sensation in her chest that feels sharp and burning. She says that she was able to tolerate food earlier this week. She says has not had any fevers burning when she urinates cough nor any shortness of breath. Exam General: Well-appearing in no acute distress speaking in complete sentences. Head: Normocephalic, atraumatic. Eye: Extraocular eye movements intact. No conjunctival injection. No scleral icterus. Ear, nose, mouth, throat: Grossly normal inspection. Normal voice, handling secretions normally. Neck: Trachea midline. Cardiovascular: Well-perfused distal extremities. Rapid regular rate. Respiratory: Nonlabored respiration. Clear lungs bilaterally. Gastrointestinal: Nondistended abdomen. Soft nontender abdomen. Musculoskeletal: No edema. Moving all 4 extremities spontaneously. Skin: Normal for age and race, grossly normal temperature and turgor. No acute rash. Neurologic: Alert and appropriate, no apparent acute deficits. Psychiatric: Mood and manner are appropriate. Grooming and personal hygiene are appropriate. MDM This is a tachycardic 37-year-old female with history of gastroparesis now with nausea vomiting and emesis concerning for recurrent gastroparesis. No epigastric tenderness to suggest pancreatitis. No right upper quadrant tenderness to suggest acute cholecystitis. No right lower quadrant tenderness nor fevers to suggest appendicitis. No left lower quadrant tenderness and no diarrhea so I doubt diverticulitis. No rash to abdomen to suggest zoster. Patient reports that her chest pain is typical with her gastroparesis. Will attempt treatment with viscous lidocaine Mylanta famotidine droperidol and hyd romorphone. No black or bloody stools to suggest GI bleed. Will obtain a single troponin to assess for ACS although patient reports pain is similar to prior episodes of gastroparesis and she has nonischemic twelve-lead ECG. No dysuria no frequency so doubt UTI. I considered PE however the patient is not short of breath and does not have risk factors for PE so I did not send a D- dimer. No fever nor cough to suggest pneumonia. No history of trauma and clear breath sounds so doubt pneumothorax. Given chest discomfort will obtain a two- view chest x-ray. Soft nontender abdomen so doubt SBO. No positional component to chest pain to suggest pericarditis and no recent fevers. 2:47 PM Negative troponin. Comprehensive metabolic panel with no SEAMUS. Hyperglycemia but no anion gap normal bicarbonate. Not consistent with DKA. Hyponatremia more pronounced compared to prior with a serum sodium of 125. Normal potassium. Negative hCG. CBC with leukocytosis and thrombocytosis. No anemia. Reassuring normal lipase. I met with the patient and she was feeling slightly improved. A temperature had not been obtained at triage. We will sign patient out pending repeat sodium level after she passes a p.o. challenge repeat heart rate and assessment of her temperature. I signed patient out to [facility] Rm. Chronic conditions affecting the care of the patient: Cannabinoid hyperemesis syndrome, upper GI bleed and diabetes History obtained from an outside historian: Male support person at bedside External record review: [facility] EMR [Diagnostic interpretations performed by me:] [Per my independent interpretation EKG shows:] Narrow complex sinus tachycardia at a rate of 106. Normal axis. Intervals within normal limits. No ST segment abnormalities. No T wave inversions. T wave flattening in lead III. Appears similar to prior with the exception of sinus tachycardia. Prior dated last week. No acute injury pattern. Medications: Droperidol fluids hydromorphone viscous lidocaine famotidine Mylanta Social determinants of health affecting disposition: N/A Management discussed with: Oncoming EM provider Treatment/interventions considered: Hospitalization but deferred given improving symptoms. Response to therapies provided: Improved following medications HPI General Date/Time Provider Initiated Documentation: 02/25/23 13:31 . Related Data Home Medications Medication Instructions Recorded Confirmed gabapentin 300 mg tablet 300 - 900 mg PO DIRECTED 01/24/21 02/25/23 lorazepam 0.5 mg tablet 0.5 mg PO DAILY 01/24/21 02/25/23 insulin aspart U-100 100 unit/mL 12 unit subcut TID 01/14/22 02/25/23 (3 mL) subcutaneous pen (Novolog FlexPen U-100 Insulin aspart) insulin glargine 100 unit/mL (3 40 unit subcut HS 01/14/22 02/25/23 mL) subcutaneous pen (Lantus Solostar U-100 Insulin) promethazine 25 mg tablet 25 mg PO TID PRN nausea and 02/06/22 02/25/23 vomiting #7 tabs blood-glucose sensor (Dexcom G6 #6 ea 05/03/22 02/20/23 Sensor device) lidocaine 5 % topical patch 1 patch topical DIRECTED 05/25/22 02/25/23 (Lidoderm) metoclopramide HCl 10 mg tablet 10 mg PO HS PRN 05/25/22 02/25/23 (Reglan) nicotine 7 mg/24 hr daily 1 patch topical DAILY 05/25/22 02/20/23 transdermal patch ondansetron 4 mg disintegrating 4 mg PO Q8H PRN nausea and vomiting 05/25/22 02/25/23 tablet empagliflozin 10 mg tablet 10 mg PO DAILY #30 tabs 08/28/22 02/25/23 (Jardiance) tramadol 50 mg tablet 50 mg PO Q6H PRN PRN #30 tabs 08/28/22 02/25/23 promethazine 25 mg rectal 25 mg VT Q6H PRN nausea and 10/05/22 02/25/23 suppository vomiting #12 ea metoclopramide HCl 10 mg tablet 10 mg PO Q6H 30 days #120 tabs 11/09/22 02/25/23 (Reglan) omeprazole 40 mg capsule,delayed 40 mg PO DAILY #30 caps 11/09/22 02/25/23 release magnesium chloride 64 mg 64 mg PO DAILY #30 tabs 02/20/23 02/25/23 (magnesium chloride) tablet,delayed release ondansetron 4 mg disintegrating 4 mg PO Q6H PRN #60 tabs 02/20/23 02/25/23 tablet potassium chloride 20 mEq 20 meq PO BID #60 tabs 02/20/23 02/25/23 tablet,extended release Previous Rx's Medication Instructions Recorded promethazine 25 mg tablet 25 mg PO TID PRN nausea and 02/06/22 vomiting #7 tabs blood-glucose sensor (Dexcom G6 #6 ea 05/03/22 Sensor device) empagliflozin 10 mg tablet 10 mg PO DAILY #30 tabs 08/28/22 (Jardiance) tramadol 50 mg tablet 50 mg PO Q6H PRN PRN #30 tabs 08/28/22 promethazine 25 mg rectal 25 mg VT Q6H PRN nausea and 10/05/22 suppository vomiting #12 ea metoclopramide HCl 10 mg tablet 10 mg PO Q6H 30 days #120 tabs 11/09/22 (Reglan) omeprazole 40 mg capsule,delayed 40 mg PO DAILY #30 caps 11/09/22 release magnesium chloride 64 mg 64 mg PO DAILY #30 tabs 02/20/23 (magnesium chloride) tablet,delayed release ondansetron 4 mg disintegrating 4 mg PO Q6H PRN #60 tabs 02/20/23 tablet potassium chloride 20 mEq 20 meq PO BID #60 tabs 02/20/23 tablet,extended release Allergies Allergy/AdvReac Type Severity Reaction Status Date / Time ibuprofen [From Advil] Allergy Severe throat Verified 02/25/23 13:38 closes pomegranate Allergy Severe Anaphylaxis Verified 02/25/23 13:38 citalopram AdvReac Severe Bodily harm Verified 02/25/23 13:38 General ARNOLD: 3 PFSH All Active Problems (Updated 02/25/23 @ 14:49 by Fermin Lyons MD) Nausea and vomiting (Acute) Acute hyponatremia (Acute) Leukocytosis (Acute) Hypomagnesemia (Acute) Abdominal pain (Acute) Chronic nausea (Acute) Calf pain (Acute) Cellulitis of foot (Acute) Diabetic toe ulcer (Acute) Abscess (Acute) Vomiting (Acute) Gastroparesis (Chronic) Vomiting (Acute) Acute dehydration (Acute) IDDM (insulin dependent diabetes mellitus) (Chronic) Tobacco abuse (Acute) Cannabinoid hyperemesis syndrome (Acute) Upper GI bleeding (Acute) UTI (urinary tract infection) (Acute) Hypokalemia (Acute) Type 2 diabetes mellitus with diabetic neuropathy (Chronic) Ulcer of other part of foot (Acute) Amputation of toe of left foot (Acute) Infection of toe (Acute) Osteomyelitis (Acute) Medical History Anxiety and depression Back pain Cellulitis of third toe, left Chest pain r/t Anxiety Diabetes Type 1, per patient she said she was told she had diabetes type 2. Diabetic neuropathy History of cellulitis toe History of kidney stones History of osteomyelitis IBS (irritable bowel syndrome) Peripheral neuropathy Suicide attempt Surgical History Amputation of left great toe H/O tubal ligation History of amputation 2nd toe left foot Family History Paternal Grandmother Heart disease Diabetes Maternal Aunt Hypertension Breast cancer maternal great aunt Maternal Grandfather Hypertension Maternal Grandmother Breast cancer Maternal Aunt No problems noted. Maternal Cousin Breast cancer Maternal Cousin Breast cancer Maternal Cousin Breast cancer Social History Smoking/Tobacco Use Status: Current every day Tobacco Type: cigarettes Smoking risk assessment performed?: Yes Alcohol Intake: current Alcohol Intake frequency: holidays/special occasions only Drug use: Daily Substance use type: marijuana Details: last marijuana was last week Housing: house Do you feel safe at home: Yes Do you feel safe in your relationship?: Yes
[2023-02-25 14:06] LABS: Abs Immature Grans 0.07 10^3/uL (0.0-0.06); Absolute Monocyte Count 1.54 10^3/uL (0.1-0.8); Basophils % 0.3; Eosinophils % 0.7; HCT 41.4 % (36.0-46.0); HGB 14.4 g/dL (11.2-15.7); Immature Grans % 0.5; Lymphocytes % 23.4; MCH 30.4 pg (27.0-33.0); MCHC 34.8 % (32.0-36.0); MCV 88 fL (80-95); MPV 8.8 fL (8.0-11.0); Monocytes % 10.2; Neutrophils % 64.9; Platelet Count 449 10^3/uL (130-400); RBC 4.73 10^6/uL (3.93-5.22); RDW 11.9 % (11.7-14.6); RDW-SD 38.1 fL; WBC 15.06 10^3/uL (4.4-10.8)
[2023-02-25 14:07] LABS: Absolute Basophil Count 0.05 10^3/uL (0.0-0.2); Absolute Eosinophil Count 0.11 10^3/uL (0.0-0.7); Absolute Lymphocyte Count 3.52 10^3/uL (1.2-3.4); Absolute Neutrophil Count 9.77 10^3/uL (1.2-6.7)
[2023-02-25 14:21] LABS: Diff Comment Agrees w/ Instrument; RBC Morphology Normal
[2023-02-25 14:23] LABS: ALT 21 U/L (14-59); AST 9 U/L (15-37); Albumin 3.6 g/dL (3.4-5.0); Alkaline Phosphatase 94 U/L (46-116); Anion Gap 7.5 mmol/L (3-11); BUN 10 mg/dL (7-18); Bilirubin, Total 0.4 mg/dL (0.2-1.0); CO2 29.5 mmol/L (21.0-32.0); CREATININE 0.7 mg/dL (0.55-1.02); Calcium 9.5 mg/dL (8.5-10.1); Chloride 88 mmol/L (98-107); Estimated GFR 114.16 (mL/min/1.73m2); Glucose 288 mg/dL (74-106); Lipase 71 U/L (16-77); Potassium 3.7 mmol/L (3.5-5.1); Sodium 125 mmol/L (136-145); Total Protein 7.6 g/dL (6.4-8.2); Troponin I < 50 ng/L (<or=60)
--- NOTE | 2023-02-25 14:25 | DI.RAD_ITS ---
Exam(s) XR CHEST 2V PA LATERAL EXAM: XR CHEST 2V PA LATERAL CLINICAL HISTORY: Chest pain TECHNIQUE: 2D digital imaging was performed. COMPARISON: CR XR PORTABLE CHEST AP from 10/01/2022 FINDINGS: HEART: Normal size. Aorta: Not dilated. PULMONARY VASCULATURE: Normal. LUNGS: Clear. PLEURAL SPACE: No pleural effusion or pneumothorax. BONE:Unremarkable for age. IMPRESSION: No acute abnormality. DATA REPOSITORY: RADIATION DOSE DELIVERED:
[2023-02-25 14:27] LABS: HCG Qual (Serum) Negative
[2023-02-25] MEDS: Normal Saline 1,000 ML 1000 ML IV (15:11)
[2023-02-25] MEDS: Droperidol 5 MG/2 ML VIAL 1.25 MG IVP (15:11)
[2023-02-25] MEDS: HYDROmorphone 2 MG/ML SYR 0.5 MG IVP (15:12)
[2023-02-25 15:57] VITALS: TEMP 37.2
[2023-02-25 17:47] LABS: Sodium 129 mmol/L (136-145)
--- NOTE | 2023-02-25 17:59 | ED.GENADUL_ITS ---
Discharge Plan Disposition Patient Disposition: Home Condition: Stable Discharge Details Clinical Impression: Nausea and vomiting, Acute hyponatremia Primary Care Provider: [facility],Local ED Provider: Rosa Rm Home Meds and New Rx's Prescriptions: New prochlorperazine maleate 10 mg tablet 10 mg PO TID PRN (Reason: nausea and vomiting) Qty: 10 0RF Continued metoclopramide HCl [Reglan] 10 mg tablet 10 mg PO Q6H 30 Days Qty: 120 5RF Rx Instructions: take 30 minutes before meals and at bedtime omeprazole 40 mg capsule,delayed release(DR/EC) 40 mg PO DAILY Qty: 30 5RF gabapentin 300 mg Tablet 300 - 900 mg PO DIRECTED Rx Instructions: 300 qam 900 hs lorazepam 0.5 mg Tablet 0.5 mg PO DAILY insulin aspart U-100 [Novolog FlexPen U-100 Insulin] 100 unit/mL (3 mL) insulin pen 12 unit SUBCUT TID Patient Comments: INJECT 9 UNITS SUBCUTANEOUSLY THREE TIMES DAILY WITH MEALS insulin glargine [Lantus Solostar U-100 Insulin] 100 unit/mL (3 mL) insulin pen 40 unit SUBCUT HS Patient Comments: INJECT 40 UNITS SUBCUTANEOUSLY AT BEDTIME promethazine 25 mg tablet 25 mg PO TID PRN (Reason: nausea and vomiting) Qty: 7 0RF Patient Comments: not taking lidocaine [Lidoderm] 5 % adhesive patch,medicated 1 patch topical DIRECTED Patient Comments: PLACE 1 PATCH ONTO THE SKIN DAILY. PATCHE(S) MAY REMAIN IN PLACE FOR UP TO 12 HOURS IN ANY 24-HOUR PERIOD nicotine 7 mg/24 hr patch 24 hour 1 patch topical DAILY Patient Comments: APPLY 1 PATCH DAILY TOPICALLY TO SKIN WITHOUT HAIR. APPLY TO A DIFFERENT SITE AT THE SAME TIME EACH DAY, AFTER COMPLETION OF 14MG PATCHES ondansetron 4 mg tablet,disintegrating 4 mg PO Q8H PRN (Reason: nausea and vomiting) metoclopramide HCl [Reglan] 10 mg tablet 10 mg PO HS PRN (DME) Dexcom G6 Sensor Device See Rx Instructions .Route Qty: 6 0RF Rx Instructions: As directed Jardiance 10 mg Tablet 10 mg PO DAILY Qty: 30 0RF tramadol 50 mg Tablet 50 mg PO Q6H PRN PRNQty: 30 0RF promethazine 25 mg suppository 25 mg [place] Q6H PRN (Reason: nausea and vomiting) Qty: 12 0RF magnesium chloride 64 mg tablet,delayed release (DR/EC) 64 mg PO DAILY Qty: 30 0RF potassium chloride 20 mEq tablet extended release 20 meq PO BID Qty: 60 0RF ondansetron 4 mg tablet,disintegrating 4 mg PO Q6H PRNQty: 60 0RF Discharge Instructions Instructions: Hyponatremia (ED), Acute Nausea and Vomiting (ED) Additional Instructions: Clear liquids advance diet as tolerated Your sodium level has improved. You should follow-up with your primary care provider outpatient. Stand Alone Forms: Work Release Referrals: No,Local [Primary Care Provider] - Discharge Data Discharge Date/Time-TO BE ENTERED AT DEPARTURE: 02/25/23 18:22 Medical Decision Making Medical Records Medical records reviewed: Yes I reviewed the patient's medical records. Medical records narrative: Report and care of patient received from Dr. Lyons. Record has been reviewed patient is tolerating oral intake at this time. Sodium level is repeated and improving from 1 25-1 29. She is stable and ready for discharge to home Lab Data Lab results reviewed: Yes I reviewed the patient's lab results. Lab results narrative: Laboratory Results - last 24 hr 02/25/23 02/25/23 02/25/23 13:58 13:58 13:58 WBC 15.06 H RBC 4.73 Hgb 14.4 Hct 41.4 MCV 88 MCH 30.4 MCHC 34.8 RDW 11.9 Plt Count 449 H MPV 8.8 Immature Gran % 0.5 Neutrophils % 64.9 Lymphocytes % 23.4 Monocytes % 10.2 Eosinophils % 0.7 Basophils % 0.3 Nucleated RBC % 0.0 Absolute Neutrophils 9.77 H Absolute Lymphocytes 3.52 H Absolute Monocytes 1.54 H Absolute Eosinophils 0.11 Absolute Basophils 0.05 RBC Morphology Normal Sodium 125 L Potassium 3.7 Chloride 88 L Carbon Dioxide 29.5 Anion Gap 7.5 BUN 10 Creatinine 0.7 Est GFR (CKD-EPI 2020) 114.16 Glucose 288 H Calcium 9.5 Total Bilirubin 0.4 AST 9 L ALT 21 Alkaline Phosphatase 94 Troponin I < 50 Total Protein 7.6 Albumin 3.6 Lipase 71 Serum HCG, Qual Negative 02/25/23 02/25/23 13:58 17:07 WBC RBC Hgb Hct MCV MCH MCHC RDW Plt Count MPV Immature Gran % Neutrophils % Lymphocytes % Monocytes % Eosinophils % Basophils % Nucleated RBC % Absolute Neutrophils Absolute Lymphocytes Absolute Monocytes Absolute Eosinophils Absolute Basophils RBC Morphology Sodium 129 L Potassium Chloride Carbon Dioxide Anion Gap BUN Creatinine Est GFR (CKD-EPI 2020) Glucose Calcium Total Bilirubin AST ALT Alkaline Phosphatase Troponin I Total Protein Albumin Lipase Cancelled Serum HCG, Qual HPI General Date/Time Provider Initiated Documentation: 02/25/23 13:31 . Related Data Home Medications Medication Instructions Recorded Confirmed gabapentin 300 mg tablet 300 - 900 mg PO DIRECTED 01/24/21 02/25/23 lorazepam 0.5 mg tablet 0.5 mg PO DAILY 01/24/21 02/25/23 insulin aspart U-100 100 unit/mL 12 unit subcut TID 01/14/22 02/25/23 (3 mL) subcutaneous pen (Novolog FlexPen U-100 Insulin aspart) insulin glargine 100 unit/mL (3 40 unit subcut HS 01/14/22 02/25/23 mL) subcutaneous pen (Lantus Solostar U-100 Insulin) promethazine 25 mg tablet 25 mg PO TID PRN nausea and 02/06/22 02/25/23 vomiting #7 tabs blood-glucose sensor (Dexcom G6 #6 ea 05/03/22 02/20/23 Sensor device) lidocaine 5 % topical patch 1 patch topical DIRECTED 05/25/22 02/25/23 (Lidoderm) metoclopramide HCl 10 mg tablet 10 mg PO HS PRN 05/25/22 02/25/23 (Reglan) nicotine 7 mg/24 hr daily 1 patch topical DAILY 05/25/22 02/20/23 transdermal patch ondansetron 4 mg disintegrating 4 mg PO Q8H PRN nausea and vomiting 05/25/22 02/25/23 tablet empagliflozin 10 mg tablet 10 mg PO DAILY #30 tabs 08/28/22 02/25/23 (Jardiance) tramadol 50 mg tablet 50 mg PO Q6H PRN PRN #30 tabs 08/28/22 02/25/23 promethazine 25 mg rectal 25 mg [place] Q6H PRN nausea and 10/05/22 02/25/23 suppository vomiting #12 ea metoclopramide HCl 10 mg tablet 10 mg PO Q6H 30 days #120 tabs 11/09/22 02/25/23 (Reglan) omeprazole 40 mg capsule,delayed 40 mg PO DAILY #30 caps 11/09/22 02/25/23 release magnesium chloride 64 mg 64 mg PO DAILY #30 tabs 02/20/23 02/25/23 (magnesium chloride) tablet,delayed release ondansetron 4 mg disintegrating 4 mg PO Q6H PRN #60 tabs 02/20/23 02/25/23 tablet potassium chloride 20 mEq 20 meq PO BID #60 tabs 02/20/23 02/25/23 tablet,extended release prochlorperazine maleate 10 mg 10 mg PO TID PRN nausea and 02/25/23 tablet vomiting #10 tabs Previous Rx's Medication Instructions Recorded promethazine 25 mg tablet 25 mg PO TID PRN nausea and 02/06/22 vomiting #7 tabs blood-glucose sensor (Dexcom G6 #6 ea 05/03/22 Sensor device) empagliflozin 10 mg tablet 10 mg PO DAILY #30 tabs 08/28/22 (Jardiance) tramadol 50 mg tablet 50 mg PO Q6H PRN PRN #30 tabs 08/28/22 promethazine 25 mg rectal 25 mg [place] Q6H PRN nausea and 10/05/22 suppository vomiting #12 ea metoclopramide HCl 10 mg tablet 10 mg PO Q6H 30 days #120 tabs 11/09/22 (Reglan) omeprazole 40 mg capsule,delayed 40 mg PO DAILY #30 caps 11/09/22 release magnesium chloride 64 mg 64 mg PO DAILY #30 tabs 02/20/23 (magnesium chloride) tablet,delayed release ondansetron 4 mg disintegrating 4 mg PO Q6H PRN #60 tabs 02/20/23 tablet potassium chloride 20 mEq 20 meq PO BID #60 tabs 02/20/23 tablet,extended release prochlorperazine maleate 10 mg 10 mg PO TID PRN nausea and 02/25/23 tablet vomiting #10 tabs Allergies Allergy/AdvReac Type Severity Reaction Status Date / Time ibuprofen [From Advil] Allergy Severe throat Verified 02/25/23 13:38 closes pomegranate Allergy Severe Anaphylaxis Verified 02/25/23 13:38 citalopram AdvReac Severe Bodily harm Verified 02/25/23 13:38 General Stated Complaint: Abd Prob ARNOLD: 3 PFSH All Active Problems (Updated 02/25/23 @ 14:49 by Fermin Lyons MD) Nausea and vomiting (Acute) Acute hyponatremia (Acute) Leukocytosis (Acute) Hypomagnesemia (Acute) Abdominal pain (Acute) Chronic nausea (Acute) Calf pain (Acute) Cellulitis of foot (Acute) Diabetic toe ulcer (Acute) Abscess (Acute) Vomiting (Acute) Gastroparesis (Chronic) Vomiting (Acute) Acute dehydration (Acute) IDDM (insulin dependent diabetes mellitus) (Chronic) Tobacco abuse (Acute) Cannabinoid hyperemesis syndrome (Acute) Upper GI bleeding (Acute) UTI (urinary tract infection) (Acute) Hypokalemia (Acute) Type 2 diabetes mellitus with diabetic neuropathy (Chronic) Ulcer of other part of foot (Acute) Amputation of toe of left foot (Acute) Infection of toe (Acute) Osteomyelitis (Acute) Medical History Anxiety and depression Back pain Cellulitis of third toe, left Chest pain r/t Anxiety Diabetes Type 1, per patient she said she was told she had diabetes type 2. Diabetic neuropathy History of cellulitis toe History of kidney stones History of osteomyelitis IBS (irritable bowel syndrome) Peripheral neuropathy Suicide attempt Surgical History Amputation of left great toe H/O tubal ligation History of amputation 2nd toe left foot Family History Paternal Grandmother Heart disease Diabetes Maternal Aunt Hypertension Breast cancer maternal great aunt Maternal Grandfather Hypertension Maternal Grandmother Breast cancer Maternal Aunt No problems noted. Maternal Cousin Breast cancer Maternal Cousin Breast cancer Maternal Cousin Breast cancer Social History Smoking/Tobacco Use Status: Current every day Tobacco Type: cigarettes Smoking risk assessment performed?: Yes Alcohol Intake: current Alcohol Intake frequency: holidays/special occasions only Drug use: Daily Substance use type: marijuana Details: last marijuana was last week Housing: house Do you feel safe at home: Yes Do you feel safe in your relationship?: Yes Course Vital Signs Vital signs: Vital Signs Pulse 105 H 02/25/23 13:37 Respiratory Rate 20 02/25/23 13:37 Blood Pressure 129/95 H 02/25/23 13:37 Pulse Oximetry 100 02/25/23 13:37 Temperature 37.2 C 02/25/23 15:57 Temperature Source Temporal Artery Scan 02/25/23 15:57 Pulse 105 H 02/25/23 13:37 Respiratory Rate 20 02/25/23 13:37 Respiratory Effort Normal 02/25/23 17:04 Blood Pressure 129/95 H 02/25/23 13:37 Blood Pressure Position Sitting 02/25/23 13:37 Pulse Oximetry 100 02/25/23 13:37 Oxygen Delivery Method Room Air 02/25/23 13:37 Oxygen Flow Rate 0 02/25/23 13:37 Pain Level 8 02/25/23 13:37 Lab/Test Results Lab/Test Results: Laboratory Tests Range/Units 02/25/23 02/25/23 02/25/23 13:58 13:58 13:58 WBC (4.4-10.8) 10^3/uL 15.06 H RBC (3.93-5.22) 10^6/uL 4.73 Hgb (11.2-15.7) g/dL 14.4 Hct (36.0-46.0) % 41.4 MCV (80-95) fL 88 MCH (27.0-33.0) pg 30.4 MCHC (32.0-36.0) % 34.8 RDW (11.7-14.6) % 11.9 Plt Count (130-400) 10^3/uL 449 H MPV (8.0-11.0) fL 8.8 Immature Gran % 0.5 Neutrophils % 64.9 Lymphocytes % 23.4 Monocytes % 10.2 Eosinophils % 0.7 Basophils % 0.3 Nucleated RBC % (0.0-0.3) % 0.0 Absolute Neutrophils (1.2-6.7) 10^3/uL 9.77 H Absolute Lymphocytes (1.2-3.4) 10^3/uL 3.52 H Absolute Monocytes (0.1-0.8) 10^3/uL 1.54 H Absolute Eosinophils (0.0-0.7) 10^3/uL 0.11 Absolute Basophils (0.0-0.2) 10^3/uL 0.05 RBC Morphology Normal Sodium (136-145) mmol/L 125 L Potassium (3.5-5.1) mmol/L 3.7 Chloride (98-107) mmol/L 88 L Carbon Dioxide (21.0-32.0) mmol/L 29.5 Anion Gap (3-11) mmol/L 7.5 BUN (7-18) mg/dL 10 Creatinine (0.55-1.02) mg/dL 0.7 Est GFR (CKD-EPI 2020) (mL/min/1.73m2) 114.16 Glucose (74-106) mg/dL 288 H Calcium (8.5-10.1) mg/dL 9.5 Total Bilirubin (0.2-1.0) mg/dL 0.4 AST (15-37) U/L 9 L ALT (14-59) U/L 21 Alkaline Phosphatase (46-116) U/L 94 Troponin I (<or=60) ng/L < 50 Total Protein (6.4-8.2) g/dL 7.6 Albumin (3.4-5.0) g/dL 3.6 Lipase (16-77) U/L 71 Serum HCG, Qual Negative Range/Units 02/25/23 02/25/23 13:58 17:07 WBC (4.4-10.8) 10^3/uL RBC (3.93-5.22) 10^6/uL Hgb (11.2-15.7) g/dL Hct (36.0-46.0) % MCV (80-95) fL MCH (27.0-33.0) pg MCHC (32.0-36.0) % RDW (11.7-14.6) % Plt Count (130-400) 10^3/uL MPV (8.0-11.0) fL Immature Gran % Neutrophils % Lymphocytes % Monocytes % Eosinophils % Basophils % Nucleated RBC % (0.0-0.3) % Absolute Neutrophils (1.2-6.7) 10^3/uL Absolute Lymphocytes (1.2-3.4) 10^3/uL Absolute Monocytes (0.1-0.8) 10^3/uL Absolute Eosinophils (0.0-0.7) 10^3/uL Absolute Basophils (0.0-0.2) 10^3/uL RBC Morphology Sodium (136-145) mmol/L 129 L Potassium (3.5-5.1) mmol/L Chloride (98-107) mmol/L Carbon Dioxide (21.0-32.0) mmol/L Anion Gap (3-11) mmol/L BUN (7-18) mg/dL Creatinine (0.55-1.02) mg/dL Est GFR (CKD-EPI 2020) (mL/min/1.73m2) Glucose (74-106) mg/dL Calcium (8.5-10.1) mg/dL Total Bilirubin (0.2-1.0) mg/dL AST (15-37) U/L ALT (14-59) U/L Alkaline Phosphatase (46-116) U/L Troponin I (<or=60) ng/L Total Protein (6.4-8.2) g/dL Albumin (3.4-5.0) g/dL Lipase (16-77) U/L Cancelled Serum HCG, Qual Sign Out Sign Out Data: Sign Out Comment: Please follow-up patient and ensure that she is able to tolerate p.o. After she passes a p.o. challenge please order a repeat sodium to ensure that her mild hyponatremia is resolving. Given the patient is not altered no indication for hypertonic saline. Last updated by Fermin Lyons MD at 02/25/23 15:57
[2023-02-25 18:11] VITALS: BP 149/91; PULSE 115; RESP 16; TEMP 36.7; O2SAT 99
== END 2023-02-25 18:22 | disposition home or self-care (01) ==
PROVIDERS: Emergency Medicine; Emergency Provider Nurse Practitioner Acute Care
DX: R11.2 Nausea with vomiting, unspecified (principal); E87.1 Hypo-osmolality and hyponatremia; R00.0 Tachycardia, unspecified; E11.9 Type 2 diabetes mellitus without complications; Z79.4 Long term (current) use of insulin
CPT/HCPCS: 80053; 83690; 93005; 96365; 96366; 96375; 99283; 71046; 84295; 84484; 84703; 85025; 93010; J1170; J1790

== ENCOUNTER 2023-05-24 01:10 | Inpatient (IN) | payer BC, MEDICAID, SELFPAY ==
[2023-05-24] VITALS (45 sets, daily range): BP systolic 115–165; BP diastolic 70–122; PULSE 84–123; RESP 11–23; TEMP 36.7–37.3; O2SAT 92–100
--- NOTE | 2023-05-24 01:23 | ED.GENADUL_ITS ---
Discharge Plan Disposition Patient Disposition: Admit to [facility] Discharge Details Chief Complaint: GenMedical Clinical Impression: Vomiting, Hypomagnesemia, Acute hypokalemia, Hyperglycemia Primary Care Provider: Unknown,Unknown ED Provider: Mervin Crowell Home Meds and New Rx's Prescriptions: No Action metoclopramide HCl [Reglan] 10 mg tablet 10 mg PO Q6H 30 Days Qty: 120 5RF Rx Instructions: take 30 minutes before meals and at bedtime omeprazole 40 mg capsule,delayed release(DR/EC) 40 mg PO DAILY Qty: 30 5RF potassium chloride 20 mEq tablet extended release 20 meq PO BID PRN Rx Instructions: during times of gastroparesis, n/v magnesium chloride 64 mg tablet,delayed release (DR/EC) 64 mg PO DAILY PRN Rx Instructions: during times of gastroparesis, n/v gabapentin 300 mg Tablet 300 - 900 mg PO DIRECTED Rx Instructions: 300 qam 900 hs insulin glargine [Lantus Solostar U-100 Insulin] 100 unit/mL (3 mL) insulin pen 40 unit SUBCUT HS Patient Comments: INJECT 40 UNITS SUBCUTANEOUSLY AT BEDTIME insulin aspart U-100 [Novolog FlexPen U-100 Insulin] 100 unit/mL (3 mL) insulin pen See Rx Instructions SUBCUT TID Patient Comments: adjusted to carbs and pre-meal BS, up to 8u SUBCUTANEOUSLY THREE TIMES DAILY WITH MEALS Rx Instructions: subcutaneously three times a day; promethazine 25 mg tablet 25 mg PO TID PRN (Reason: nausea and vomiting) Qty: 7 0RF Patient Comments: not taking lidocaine [Lidoderm] 5 % adhesive patch,medicated 1 patch topical DIRECTED Patient Comments: PLACE 1 PATCH ONTO THE SKIN DAILY. PATCHE(S) MAY REMAIN IN PLACE FOR UP TO 12 HOURS IN ANY 24-HOUR PERIOD nicotine 7 mg/24 hr patch 24 hour 1 patch topical DAILY Patient Comments: APPLY 1 PATCH DAILY TOPICALLY TO SKIN WITHOUT HAIR. APPLY TO A DIFFERENT SITE AT THE SAME TIME EACH DAY, AFTER COMPLETION OF 14MG PATCHES (DME) Dexcom G6 Sensor Device See Rx Instructions .Route Qty: 6 0RF Rx Instructions: As directed Jardiance 10 mg Tablet 10 mg PO DAILY Qty: 30 0RF tramadol 50 mg Tablet 50 mg PO Q6H PRN PRNQty: 30 0RF promethazine 25 mg suppository 25 mg OK Q6H PRN (Reason: nausea and vomiting) Qty: 12 0RF ondansetron 4 mg tablet,disintegrating 4 mg PO Q6H PRNQty: 60 0RF prochlorperazine maleate 10 mg tablet 10 mg PO TID PRN (Reason: nausea and vomiting) Qty: 10 0RF Medical Decision Making 38-year-old female with a past medical history of insulin-dependent diabetes mellitus, gastroparesis, amputation of her left toe secondary to diabetes and osteomyelitis as well as multiple episodes of vomiting in the past, which they are not certain as to the reason why, who presents today for evaluation of vomiting. Patient and states that she has been vomiting for the last 24 hours. states that it appears that she has vomited around 8 to 10 gallons of fluid. She denies any blood. She admits to feeling generally ill. She denies any focal abdominal pain or headache or neck pain. She admits to feeling extremely weak. She has been taking her medications as directed otherwise. She has been taking the insulin as directed. No other complaints at this time. She states that symptoms feel identical to previous episodes of vomiting that she has had in the past. Exam demonstrates dry mucous membranes, mild tachycardia, slightly groggy but no focal neurologic deficits. GCS still 15. Concern for dehydration, electrolyte abnormality, or potential DKA. Will rehydrate, monitor closely and reassess. Blood sugar over 400. We will give 12 units of subcu insulin. 3:48 AM Laboratory workup shows white count of 17, likely reactive from the vomiting. VBG shows a pH of 7.47, pCO2 53, no evidence of diabetic ketoacidosis. Electrolytes demonstrate a low potassium at 2.9, low magnesium, blood sugar elevated. Lipase normal. Patient is still receiving 40 mg of IV potassium, 2 g of magnesium, and 3 L of fluid total, 2 L of lactated Ringer's and 1 L of normal saline. Despite this and antiemetics patient is still having nausea and gagging. Repeat abdominal exam continues to demonstrate no focal abdominal tenderness. Patient states that symptoms feel identical to previous episodes of cyclic vomiting. Still no current clinical indication of an acute surgical abdomen or evidence of obstruction clinically. No distention. Will hold off on imaging. Patient and also states that she usually does well with admission, however the times that she has been discharged home and scenarios l jessica this that usually come back shortly thereafter with continued vomiting until admission. We will continue to give some additional antiemetics and hydrate with plan for admission for continued electrolyte replacement, fluids and antiemetic use. 4:12 AM Discussed the case with the hospitalist Dr. Stahl, he agrees with the assessment and plan. I have extensively reviewed the treatment plan with the patient. I have addressed all patient concerns at this time. I have also discussed the plan with the admitting physician and they agree with the current assessment and plan and have agreed to assume responsibility for the patient. All parties demonstrate verbal understanding and agreement with our assessment and plan at this time. The documentation in this chart was dictated using Eren[employer] dictation software. Please excuse any dictation errors. I will place bridging orders on his behalf at his request. HPI General Date/Time Provider Initiated Documentation: 05/24/23 01:11 . HPI Narrative: 38-year-old female with a past medical history of insulin-dependent diabetes mellitus, gastroparesis, amputation of her left toe secondary to diabetes and osteomyelitis as well as multiple episodes of vomiting in the past, which they are not certain as to the reason why, who presents today for evaluation of vomiting. Patient and states that she has been vomiting for the last 24 hours. states that it appears that she has vomited around 8 to 10 gallons of fluid. She denies any blood. She admits to feeling generally ill. She denies any focal abdominal pain or headache or neck pain. She admits to feeling extremely weak. She has been taking her medications as directed otherwise. She has been taking the insulin as directed. No other complaints at this time. She states that symptoms feel identical to previous episodes of vomiting that she has had in the past. Related Data Home Medications Medication Instructions Recorded Confirmed gabapentin 300 mg tablet 300 - 900 mg PO DIRECTED 01/24/21 05/24/23 insulin glargine 100 unit/mL (3 40 unit subcut HS 01/14/22 05/24/23 mL) subcutaneous pen (Lantus Solostar U-100 Insulin) promethazine 25 mg tablet 25 mg PO TID PRN nausea and 02/06/22 05/24/23 vomiting #7 tabs blood-glucose sensor (Dexcom G6 #6 ea 05/03/22 05/24/23 Sensor device) lidocaine 5 % topical patch 1 patch topical DIRECTED 05/25/22 05/24/23 (Lidoderm) nicotine 7 mg/24 hr daily 1 patch topical DAILY 05/25/22 05/24/23 transdermal patch empagliflozin 10 mg tablet 10 mg PO DAILY #30 tabs 08/28/22 05/24/23 (Jardiance) tramadol 50 mg tablet 50 mg PO Q6H PRN PRN #30 tabs 08/28/22 05/24/23 promethazine 25 mg rectal 25 mg OK Q6H PRN nausea and 10/05/22 05/24/23 suppository vomiting #12 ea metoclopramide HCl 10 mg tablet 10 mg PO Q6H 30 days #120 tabs 11/09/22 05/24/23 (Reglan) omeprazole 40 mg capsule,delayed 40 mg PO DAILY #30 caps 11/09/22 05/24/23 release ondansetron 4 mg disintegrating 4 mg PO Q6H PRN #60 tabs 02/20/23 05/24/23 tablet prochlorperazine maleate 10 mg 10 mg PO TID PRN nausea and 02/25/23 05/24/23 tablet vomiting #10 tabs insulin aspart U-100 100 unit/mL See Rx Instructions subcut TID 04/14/23 05/24/23 (3 mL) subcutaneous pen (Novolog FlexPen U-100 Insulin aspart) magnesium chloride 64 mg 64 mg PO DAILY PRN 04/14/23 05/24/23 (magnesium chloride) tablet,delayed release potassium chloride 20 mEq 20 meq PO BID PRN 04/14/23 05/24/23 tablet,extended release Previous Rx's Medication Instructions Recorded promethazine 25 mg tablet 25 mg PO TID PRN nausea and 02/06/22 vomiting #7 tabs blood-glucose sensor (Dexcom G6 #6 ea 05/03/22 Sensor device) empagliflozin 10 mg tablet 10 mg PO DAILY #30 tabs 08/28/22 (Jardiance) tramadol 50 mg tablet 50 mg PO Q6H PRN PRN #30 tabs 08/28/22 promethazine 25 mg rectal 25 mg OK Q6H PRN nausea and 10/05/22 suppository vomiting #12 ea metoclopramide HCl 10 mg tablet 10 mg PO Q6H 30 days #120 tabs 11/09/22 (Reglan) omeprazole 40 mg capsule,delayed 40 mg PO DAILY #30 caps 11/09/22 release ondansetron 4 mg disintegrating 4 mg PO Q6H PRN #60 tabs 02/20/23 tablet prochlorperazine maleate 10 mg 10 mg PO TID PRN nausea and 02/25/23 tablet vomiting #10 tabs Allergies Allergy/AdvReac Type Severity Reaction Status Date / Time ibuprofen [From Advil] Allergy Severe throat Verified 05/24/23 01:45 closes pomegranate Allergy Severe Anaphylaxis Verified 05/24/23 01:45 citalopram AdvReac Severe Bodily harm Verified 05/24/23 01:45 General ARNOLD: 3 Review of Systems All systems reviewed & are unremarkable except as noted in HPI and below PFSH All Active Problems (Updated 05/24/23 @ 03:52 by Mervin Crowell DO) Hyperglycemia (Acute) Acute hypokalemia (Acute) Hypomagnesemia (Acute) Corns and callosities (Acute) Leukocytosis (Acute) Hypomagnesemia (Acute) Chronic nausea (Acute) Calf pain (Acute) Cellulitis of foot (Acute) Diabetic toe ulcer (Acute) Abscess (Acute) Vomiting (Acute) Gastroparesis (Chronic) Vomiting (Acute) Acute dehydration (Acute) IDDM (insulin dependent diabetes mellitus) (Chronic) Tobacco abuse (Acute) Cannabinoid hyperemesis syndrome (Acute) Upper GI bleeding (Acute) UTI (urinary tract infection) (Acute) Hypokalemia (Acute) Type 2 diabetes mellitus with diabetic neuropathy (Chronic) Ulcer of other part of foot (Acute) Amputation of toe of left foot (Acute) Infection of toe (Acute) Osteomyelitis (Acute) Medical History Ulcerative esophagitis Peripheral neuropathy History of osteomyelitis IBS (irritable bowel syndrome) History of kidney stones Chest pain r/t Anxiety Back pain Cellulitis of third toe, left Type 2 diabetes mellitus History of cellulitis toe Suicide attempt Anxiety and depression Diabetic neuropathy Diabetes Type 1, per patient she said she was told she had diabetes type 2. 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 Maternal Cousin Breast cancer Maternal Cousin Breast cancer Maternal Cousin Breast cancer Social History Smoking/Tobacco Use Status: Current every day Tobacco Type: cigarettes Smoking risk assessment performed?: Yes Alcohol Intake: current Alcohol Intake frequency: holidays/special occasions only Drug use: Daily Substance use type: marijuana Details: last marijuana was last week Housing: house Do you feel safe at home: Yes Do you feel safe in your relationship?: Yes Exam Narrative Exam Narrative: 1.Const: Well-nourished, Well-developed, appearing stated age 2.Eyes: PERRL, no conjunctival injection, and symmetrical lids. 3.ENT: Atraumatic external nose and ears. Dry MM. Neck: Symmetric, trachea midline, No thyromegaly. 4.CVS: +S1/S2, No murmurs or gallops. Peripheral pulses 2+ and equal in all extremities. Brisk capillary refill in all extremities. 5.RESP: Unlabored respiratory effort. Clear to auscultation bilaterally. No wheezes rales or rhonchi 6.GI: Soft, Nontender/Nondistended, No hepatosplenomegaly. No guarding or rebound. 7.MSK: Normocephalic/Atraumatic, Extremities w/o deformity or ttp No cyanosis or clubbing, Normal movement of all extremities 8.Skin: Warm, Dry. No rashes or lesions. 9.Neuro: finisher special stocks II-XII grossly intact. Sensation grossly intact, no focal neurologic deficits. 10.Psych: (AAO) x3. Appropriate mood and affect, but slightly groggy. GCS 15
[2023-05-24] MEDS: Lactated Ringers 1,000 ML 1000 ML IV ×2 (01:35→02:42)
[2023-05-24] MEDS: Ondansetron 4 MG/2 ML VIAL IVP (01:36)
[2023-05-24 01:39] LABS: Abs Immature Grans 0.08 10^3/uL (0.0-0.06); Absolute Basophil Count 0.04 10^3/uL (0.0-0.2); Absolute Lymphocyte Count 1.93 10^3/uL (1.2-3.4); Absolute Monocyte Count 1.45 10^3/uL (0.1-0.8); BE (Venous) 15 mmol/L (-2-3); Basophils % 0.2; HCO3 (Venous) 38 mmol/L (23-28); Immature Grans % 0.5; MCH 31.3 pg (27.0-33.0); MCHC 34.1 % (32.0-36.0); MCV 92 fL (80-95); MPV 9.4 fL (8.0-11.0); Monocytes % 8.3; O2 Sat (Venous) 57 %; Platelet Count 463 10^3/uL (130-400); RDW 12.6 % (11.7-14.6); RDW-SD 42.9 fL; TCO2 (Venous) 34 mmol/L (24-29); WBC 17.53 10^3/uL (4.4-10.8); pCO2 (Venous) 53 mmHg (41-51); pH (Venous) 7.47 (7.31-7.41); pO2 (Venous) 31 mmHg
[2023-05-24 01:40] LABS: Absolute Neutrophil Count 14.02 10^3/uL (1.2-6.7)
[2023-05-24 01:56] LABS: ALT 22 U/L (14-59); AST 13 U/L (15-37); Albumin 3.9 g/dL (3.4-5.0); Alkaline Phosphatase 114 U/L (46-116); Anion Gap 10.3 mmol/L (3-11); BUN 23 mg/dL (7-18); Bilirubin, Total 0.3 mg/dL (0.2-1.0); CO2 35.7 mmol/L (21.0-32.0); CREATININE 0.9 mg/dL (0.55-1.02); Calcium 10.1 mg/dL (8.5-10.1); Chloride 96 mmol/L (98-107); Estimated GFR 83.92 (mL/min/1.73m2); Glucose 343 mg/dL (74-106); Lipase 31 U/L (16-77); Magnesium 1.7 mg/dL (1.8-2.4); Sodium 142 mmol/L (136-145); Total Protein 8.7 g/dL (6.4-8.2)
[2023-05-24 02:06] LABS: Potassium 2.9 mmol/L (3.5-5.1)
--- OUTSIDE RECORDS SUMMARY | 2023-05-24 02:14 | XMS_ITS | Continuity of Care Document ---
Author Name Unknown Organization [facility] Address [address] [place] [address] [facility] Date[facility] 05/17/22 - 05/17/22 [facility] [address] [place] [address] Discharge Disposition: Home or Self Care Attending Physician: Ester Gabriel DPM Admitting Physician: Ester Gabriel DPM Results Laboratory List Name Date Automated Diff 05/17/22 C-Reactive Protein High Sensitivity 05/06 07/28 CBC w/ Diff 05/17/22 Creatine Kinase 05/17/22 Sedimentation Rate (ESR) 05/17/22 Most recent to oldest [Reference Range]: 1 WBC [5.0-10.0 x10^3/mcL] 12.3 x10^3/mcL *HI* (05/17/22 11:40 AM) RBC [4.1-5.3 x10^6/mcL] 4.5 x10^6/mcL (05/17/22 11:40 AM) Neutro Auto [40.0-75.0 %] 51.3 % (05/17/22 11:40 AM) Lymph Auto [20.0-50.0 %] 36.6 % (05/17/22 11:40 AM) [place] Auto [2.0-15.0 %] 7.5 % (05/17/22 11:40 AM) Basophil Auto [0.0-1.0 %] 0.6 % (05/17/22 11:40 AM) MCV [80.0-96.0] 91.4 (05/17/22 11:40 AM) MCHC [31.0-35.0 g/dL] 34.2 g/dL (05/17/22 11:40 AM) Hct [37.0-47.0 %] 41.2 % (05/17/22 11:40 AM) MCH [26.0-32.0 pg] 31.3 pg (05/17/22 11:40 AM) Neutro Absolute 6.3 x10^3/mcL *NA* (05/17/22 11:40 AM) Hgb [12.0-16.0 g/dL] 14.1 g/dL (05/17/22 11:40 AM) Platelets [130-450 x10^3/mcL] 418 x10^3/ mcL (05/17/22 11:40 AM) RDW-CV [11.7-17.0 %] 12.2 % (05/17/22 11:40 AM) Imm Gran Auto [0.0-0.9 %] 0.2 % (05/17/22 11:40 AM) CRP High Sens [0.00-3.00 mg/L] 5.44 mg/L *HI* (05/17/22 11:40 AM) Eos, Auto [1.0-6.0 %] 3.8 % (05/17/22 11:40 AM) CK [26-192 unit/L] 53 unit/L (05/17/22 11:40 AM) ESR, Westergren [0-30 mm/hr] 42 mm/hr *HI* (05/17/22 11:40 AM) Social History Social History Type Response Sex Female
[2023-05-24] MEDS: MAGNESIUM SULFATE 2 GM/50 ML BAG IVPB (02:16)
[2023-05-24] MEDS: Normal Saline 1,000 ML 1000 ML IV (02:17)
[2023-05-24] MEDS: POTASSIUM CHLORIDE 20 MEQ/100 ML BAG 50 MEQ IVPB ×2 (02:29→02:32)
[2023-05-24] MEDS: Insulin REGULAR-Human 100 UNITS/ML UNIT 10 UNITS SC (02:30)
[2023-05-24 04:01] LABS: Bilirubin Negative (Negative); Blood Negative (Negative); Clarity Sl Cloudy (Clear); Glucose 500 mg/dL (Negative); Ketones 80 mg/dL (Negative); Leukocyte Esterase Negative (Negative); Nitrite Negative (Negative); Urobilinogen 0.2 mg/dL (Up to 0.2)
[2023-05-24] MEDS: Prochlorperazine 10 MG/2 ML VIAL IVP (04:03)
[2023-05-24 04:14] LABS: Bacteria Few HPF (Negative); C & S Indicated? No; Crystals Moderate Amorphous HPF (Negative); Epithelial Cells Moderate HPF (Negative); Mucus Negative (Negative); RBC 0-2 HPF (0-2)
[2023-05-24 04:50] LABS: Abs Immature Grans 0.08 10^3/uL (0.0-0.06); Absolute Basophil Count 0.03 10^3/uL (0.0-0.2); Absolute Lymphocyte Count 2.77 10^3/uL (1.2-3.4); Absolute Monocyte Count 1.66 10^3/uL (0.1-0.8); Basophils % 0.2; Eosinophils % 0.1; HCT 37.1 % (36.0-46.0); HGB 12.6 g/dL (11.2-15.7); Immature Grans % 0.5; Lymphocytes % 16.5; MCH 31.6 pg (27.0-33.0); MCV 93 fL (80-95); MPV 9.5 fL (8.0-11.0); Monocytes % 9.9; Neutrophils % 72.8; Platelet Count 353 10^3/uL (130-400); RBC 3.99 10^6/uL (3.93-5.22); RDW 12.7 % (11.7-14.6); WBC 16.81 10^3/uL (4.4-10.8)
[2023-05-24 04:59] LABS: Absolute Eosinophil Count 0.02 10^3/uL (0.0-0.7); Absolute Neutrophil Count 12.24 10^3/uL (1.2-6.7)
[2023-05-24 05:08] LABS: Anion Gap 6.2 mmol/L (3-11); BUN 17 mg/dL (7-18); CO2 34.8 mmol/L (21.0-32.0); CREATININE 0.9 mg/dL (0.55-1.02); Calcium 8.7 mg/dL (8.5-10.1); Chloride 102 mmol/L (98-107); Estimated GFR 83.92 (mL/min/1.73m2); Glucose 230 mg/dL (74-106); Sodium 143 mmol/L (136-145)
[2023-05-24 05:16] LABS: Diff Comment Agrees w/ Instrument; RBC Morphology Normal
[2023-05-24] MEDS: Normal Saline Flush 10 ML SYR IVP ×2 (05:59→07:55)
--- NOTE | 2023-05-24 06:43 | HPE_ITS ---
Date of service: 05/24/23 Time of Service: 06:43 Assessment and Plan Assessment and plan (1) Acute dehydration: Start date: 05/24/23 Status: Acute Assessment and plan: This is a 38-year-old lady with acute pain and metabolic alkalosis secondary to 12 hours of hyperemesis. She has a history of gastroparesis and possible cannabis hyperemesis though she did have a trial stopping marijuana with continuation of these episodes. Each episode does require hospitalization for rehydration with IV repletion of electrolytes and symptomatic treatment. She is chronically on antiemetics. She does have diabetes which is fairly well- controlled by history. She will be on sliding scale insulin coverage while in the hospital and not on her usual diet. She is a full code. (2) Cannabinoid hyperemesis syndrome: Start date: 05/24/23 Status: Acute Assessment and plan: Patient has stopped marijuana use for 3 months in the past but for episodes of cyclic hyperemesis have not resolved. She will continue follow-up at [facility] with gastroenterology and should long-term avoid marijuana. Continue symptomatic treatment. (3) Hypokalemia due to excessive gastrointestinal loss of potassium: Start date: 05/24/23 Status: Acute Assessment and plan: Continue IV repletion and at discharge will continue potassium orally. (4) Hypomagnesemia: Start date: 05/24/23 Status: Acute Assessment and plan: Continue IV repletion as needed with patient chronically on oral magnesium. (5) Gastroparesis: Status: Chronic Assessment and plan: Recurrent episodes of nausea and vomiting requiring hospitalization for IV rehydration. She may have cannabis hyperemesis and still should avoid smoking marijuana. Continue follow-up with GI at [facility]. (6) IDDM (insulin dependent diabetes mellitus): Status: Chronic Assessment and plan: Patient will be on clear fluids with diabetic diet and sliding scale coverage during her hospital stay. 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 History of Present Illness History of Present Illness Chief Complaint: Vomiting for 24 hours Narrative: This is a 38-year-old lady who has had diabetes for about a decade initially with onset when she weighed 500 pounds but has now lost weight down to 190 pounds. She recently has had episodes of recurrent hyperemesis thought to be cannabis induced and she quit for 3 months but apparently may be still smoking and has recurrent episodes requiring hospitalization for acute dehydration and electrolyte repletion. She presented to the ED with a recurrent episode and was admitted for IV hydration with acute dehydration. She has nausea but not vomiting presently. In the ED she could not stop vomiting requiring IV fluid support. She has no abdominal pain. She is seeing gastroenterology at [facility] and also sees endocrinology at [facility]. She is not on a GLP-1 agonist injection but does take Lantus and NovoLog with Jardiance. She did receive some insulin in the ED. She is tolerating clear fluids presently. She also has a diagnosis of possible gastroparesis which may be secondary to her long-term diabetes. She is not insulin-dependent on her diabetes but this appears to be secondary to her weight but persists even when she lost weight. She did have an elevated WBC but no signs of infection and this may have been reactionary to her distress and vomiting. She was alkalotic which was probably metabolic from her vomiting. She is a full code. Review of Systems Narrative: 13 point review of systems otherwise unrevealing or stable. [facility] All Active Problems (Updated 05/24/23 @ 07:24 by Broderick Rubi) Hypokalemia due to excessive gastrointestinal loss of potassium (Acute) Hyperglycemia (Acute) Acute hypokalemia (Acute) Hypomagnesemia (Acute) Corns and callosities (Acute) Leukocytosis (Acute) Hypomagnesemia (Acute) Chronic nausea (Acute) Calf pain (Acute) Cellulitis of foot (Acute) Diabetic toe ulcer (Acute) Abscess (Acute) Vomiting (Acute) Gastroparesis (Chronic) Vomiting (Acute) Acute dehydration (Acute) IDDM (insulin dependent diabetes mellitus) (Chronic) Tobacco abuse (Acute) Cannabinoid hyperemesis syndrome (Acute) Upper GI bleeding (Acute) UTI (urinary tract infection) (Acute) Hypokalemia (Acute) Type 2 diabetes mellitus with diabetic neuropathy (Chronic) Ulcer of other part of foot (Acute) Amputation of toe of left foot (Acute) Infection of toe (Acute) Osteomyelitis (Acute) Medical History Ulcerative esophagitis Peripheral neuropathy History of osteomyelitis IBS (irritable bowel syndrome) History of kidney stones Chest pain r/t Anxiety Back pain Cellulitis of third toe, left Type 2 diabetes mellitus History of cellulitis toe Suicide attempt Anxiety and depression Diabetic neuropathy Diabetes Type 1, per patient she said she was told she had diabetes type 2. 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 Maternal Cousin Breast cancer Maternal Cousin Breast cancer Maternal Cousin Breast cancer Social History Smoking/Tobacco Use Status: Current every day Tobacco Type: cigarettes Smoking risk assessment performed?: Yes Alcohol Intake: current Alcohol Intake frequency: holidays/special occasions only Drug use: Daily Substance use type: marijuana Details: last marijuana was last week Housing: house Do you feel safe at home: Yes Do you feel safe in your relationship?: Yes Meds Allergies and Home Medications Allergies Allergy/AdvReac Type Severity Reaction Status Date / Time ibuprofen [From Advil] Allergy Severe throat Verified 05/24/23 01:45 closes pomegranate Allergy Severe Anaphylaxis Verified 05/24/23 01:45 citalopram AdvReac Severe Bodily harm Verified 05/24/23 01:45 Home Medications Medication Instructions Recorded Confirmed Type gabapentin 300 mg tablet 300 - 900 mg PO DIRECTED 01/24/21 05/24/23 History insulin glargine 100 unit/mL (3 40 unit subcut HS 01/14/22 05/24/23 History mL) subcutaneous pen (Lantus Solostar U-100 Insulin) promethazine 25 mg tablet 25 mg PO TID PRN nausea and 02/06/22 05/24/23 Rx vomiting #7 tabs blood-glucose sensor (Dexcom G6 #6 ea 05/03/22 05/24/23 Rx Sensor device) lidocaine 5 % topical patch 1 patch topical DIRECTED 05/25/22 05/24/23 History (Lidoderm) nicotine 7 mg/24 hr daily 1 patch topical DAILY 05/25/22 05/24/23 History transdermal patch empagliflozin 10 mg tablet 10 mg PO DAILY #30 tabs 08/28/22 05/24/23 Rx (Jardiance) tramadol 50 mg tablet 50 mg PO Q6H PRN PRN #30 tabs 08/28/22 05/24/23 Rx promethazine 25 mg rectal 25 mg IN Q6H PRN nausea and 10/05/22 05/24/23 Rx suppository vomiting #12 ea metoclopramide HCl 10 mg tablet 10 mg PO Q6H 30 days #120 tabs 11/09/22 05/24/23 Rx (Reglan) omeprazole 40 mg capsule,delayed 40 mg PO DAILY #30 caps 11/09/22 05/24/23 Rx release ondansetron 4 mg disintegrating 4 mg PO Q6H PRN #60 tabs 02/20/23 05/24/23 Rx tablet prochlorperazine maleate 10 mg 10 mg PO TID PRN nausea and 02/25/23 05/24/23 Rx tablet vomiting #10 tabs insulin aspart U-100 100 unit/mL See Rx Instructions subcut TID 04/14/23 05/24/23 History (3 mL) subcutaneous pen (Novolog FlexPen U-100 Insulin aspart) magnesium chloride 64 mg 64 mg PO DAILY PRN 04/14/23 05/24/23 History (magnesium chloride) tablet,delayed release potassium chloride 20 mEq 20 meq PO BID PRN 04/14/23 05/24/23 History tablet,extended release Exam Narrative Exam Narrative: General: Patient is moderately obese, alert and oriented x 3 and in no acute distress. HEENT: Normocephalic, eyes with pupils equal and react to light symmetrically, extraocular movement tachycardia sclera anicteric. Oropharynx with dry mucosa. Neck: Supple without JVD. Back: Stooped posture without CVA tenderness. Lungs: Clear to auscultation percussion. No focalizing rales or rhonchi. Breast: Exam deferred. Heart: Tachycardic rate with regular rhythm with no murmur or gallop appreciated. Abdomen: Obese contour, soft nontender to palpation with no palpable hepatosplenomegaly. Bowel sounds positive in all quadrants. Genitalia/rectal: Exam deferred. Extremities: Without clubbing, cyanosis or pitting edema. Peripheral pulses intact. Patient is status post amputation of toes. Skin: Normal color, warm and dry. Neuro: Cranial nerves II through XII grossly intact, no focal motor deficits. No tremor. Psych: Normal affect and mood. No abnormal thought processes. Remote and recent memory intact. Results Labs 05/24/23 04:45 05/24/23 04:45 Labs: Laboratory Results - last 24 hr 05/24/23 05/24/23 05/24/23 01:35 03:41 04:45 WBC 17.53 H 16.81 H RBC 4.80 3.99 Hgb 15.0 12.6 D Hct 44.0 37.1 MCV 92 93 MCH 31.3 31.6 MCHC 34.1 34.0 RDW 12.6 12.7 Plt Count 463 H 353 MPV 9.4 9.5 Immature Gran % 0.5 0.5 Neutrophils % 80.0 72.8 Lymphocytes % 11.0 16.5 Monocytes % 8.3 9.9 Eosinophils % 0.0 0.1 Basophils % 0.2 0.2 Nucleated RBC % 0.0 0.0 Absolute Neutrophils 14.02 H 12.24 H Absolute Lymphocytes 1.93 2.77 Absolute Monocytes 1.45 H 1.66 H Absolute Eosinophils 0.00 0.02 Absolute Basophils 0.04 0.03 RBC Morphology Normal VBG pH 7.47 H VBG pCO2 53 H VBG pO2 31 VBG HCO3 38 H VBG Total CO2 34 H VBG O2 Saturation 57 VBG Base Excess 15 H Sodium 142 143 Potassium 2.9 L* 3.0 L Chloride 96 L 102 Carbon Dioxide 35.7 H 34.8 H Anion Gap 10.3 6.2 BUN 23 H 17 Creatinine 0.9 0.9 Est GFR (CKD-EPI 2020) 83.92 83.92 Glucose 343 H 230 H Calcium 10.1 8.7 Magnesium 1.7 L Total Bilirubin 0.3 AST 13 L ALT 22 Alkaline Phosphatase 114 Total Protein 8.7 H Albumin 3.9 Lipase 31 Urine Color Yellow Urine Clarity Sl Cloudy Urine pH 8.0 Ur Specific [place] 1.020 Urine Protein 30 H Urine Ketones 80 H Urine Blood Negative Urine Nitrite Negative Urine Bilirubin Negative Urine Urobilinogen 0.2 Ur Leukocyte Esterase Negative Urine RBC 0-2 Urine WBC 3-5 Ur Epithelial Cells Moderate Urine Crystals Moderate Amorphous Urine Bacteria Few Urine Mucus Negative Ur Culture Indicated? No Urine Glucose 500 H Last Vital Signs Temp 37.1 C 05/24/23 05:24 Pulse 111 H 05/24/23 05:24 Resp 16 05/24/23 05:24 BP 127/79 05/24/23 05:24 Pulse Ox 99 05/24/23 05:24 Time Spent Time spent with Patient: >75 minutes Time was spent: preparing to see the patient(eg.review tests), obtaining and/or reviewing separately otained hiistory, ordering medications,tests, procedures, referring, communicating with other health aged or disabled carer, indepentently interpreting results and counseling the patient
[2023-05-24] MEDS: Normal Saline 1,000 ML 150 ML IV ×2 (07:29→14:50)
[2023-05-24] MEDS: Enoxaparin 40 MG/0.4 ML SYR SC (07:53)
[2023-05-24] MEDS: Gabapentin 300 MG CAP PO (07:55)
[2023-05-24] MEDS: traMADol 50 MG TAB PO (07:55)
[2023-05-24] MEDS: Insulin Aspart 300 UNITS/3 ML PEN SC ×2 (08:49→12:56)
--- NOTE | 2023-05-24 10:38 | INITIAL_ITS ---
Date of service: 05/24/23 Time of Service: 10:41 Care Management Initial Assmt Initial Assessment REASON FOR HOSPITALIZATION:: Hyperemesis, hypokalemia PREVIOUS FUNCTIONAL STATUS/SOCIAL/FAMILY SUPPORTS:: Cristy lives in [place] with her , Fermin and their three children. They relocated to [place] from [place] about a year and a half ago. They live in a large [facility] home, which is multi generational, as her mother in law and mother in law's sister also live with them. 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 CURRENT FUNCTIONAL STATUS:: Stella was sitting up in bed when CM met with her. She stated that she is feeling much better today; she reports no nausea or pain. She stated that she is tolerating clear liquids, and she would like to return home. She stated that she is tired from being in the hospital, as she doesn't sleep well here, and would prefer to be home, as her symptoms are resolved. CM discussed this with the MD, who agreed to discharge her home. Stella stated that her would drive her home via private vehicle. CM will continue to follow. ADVANCE DIRECTIVES:: Not of file at [facility]; CM will offer forms. Has patient been provided with info about the portal/API?: Yes Did the patient sign up for the portal?: No CODE STATUS:: Full Code INSURANCE COVERAGE / FINANCIAL ISSUES:: BC/BS. JYOTI. CURRENT HOME/COMMUNITY SERVICES/EQUIPMENT:: None. PRIMARY CARE PHYSICIAN:: Stella is still connected with her PCP in [place], although she has been trying to get into the [place] [facility]. POTENTIAL DISCHARGE NEEDS:: Follow up appointments. PATIENT/FAMILY EDUCATION NEEDS:: Review discharge instructions and limitations, discussion of self care needs including ask me three. ANTICIPATED BARRIERS TO DISCHARGE:: None. TRANSPORTATION:: Via private vehicle by family. PLAN:: Anticipate Stella will return home once medically cleared. Her will drive her home via private vehicle. She will follow up with her PCP and discharge plan of care. CM will continue to follow. PFSH All Active Problems (Updated 05/24/23 @ 07:24 by Broderick Rubi) Hypokalemia due to excessive gastrointestinal loss of potassium (Acute) Hyperglycemia (Acute) Acute hypokalemia (Acute) Hypomagnesemia (Acute) Corns and callosities (Acute) Leukocytosis (Acute) Hypomagnesemia (Acute) Chronic nausea (Acute) Calf pain (Acute) Cellulitis of foot (Acute) Diabetic toe ulcer (Acute) Abscess (Acute) Vomiting (Acute) Gastroparesis (Chronic) Vomiting (Acute) Acute dehydration (Acute) IDDM (insulin dependent diabetes mellitus) (Chronic) Tobacco abuse (Acute) Cannabinoid hyperemesis syndrome (Acute) Upper GI bleeding (Acute) UTI (urinary tract infection) (Acute) Hypokalemia (Acute) Type 2 diabetes mellitus with diabetic neuropathy (Chronic) Ulcer of other part of foot (Acute) Amputation of toe of left foot (Acute) Infection of toe (Acute) Osteomyelitis (Acute) Medical History Ulcerative esophagitis Peripheral neuropathy History of osteomyelitis IBS (irritable bowel syndrome) History of kidney stones Chest pain r/t Anxiety Back pain Cellulitis of third toe, left Type 2 diabetes mellitus History of cellulitis toe Suicide attempt Anxiety and depression Diabetic neuropathy Diabetes Type 1, per patient she said she was told she had diabetes type 2. 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 Maternal Cousin Breast cancer Maternal Cousin Breast cancer Maternal Cousin Breast cancer Social History Smoking/Tobacco Use Status: Current every day Tobacco Type: cigarettes Smoking risk assessment performed?: Yes Alcohol Intake: current Alcohol Intake frequency: holidays/special occasions only Drug use: Daily Substance use type: marijuana Details: last marijuana was last week Housing: house Do you feel safe at home: Yes Do you feel safe in your relationship?: Yes
[2023-05-24 10:48] LABS: ALT 20 U/L (14-59); AST 15 U/L (15-37); Albumin 2.9 g/dL (3.4-5.0); Alkaline Phosphatase 86 U/L (46-116); Anion Gap 5.5 mmol/L (3-11); BUN 13 mg/dL (7-18); Bilirubin, Total 0.3 mg/dL (0.2-1.0); CO2 31.5 mmol/L (21.0-32.0); CREATININE 0.7 mg/dL (0.55-1.02); Calcium 8.5 mg/dL (8.5-10.1); Chloride 99 mmol/L (98-107); Estimated GFR 113.46 (mL/min/1.73m2); Glucose 259 mg/dL (74-106); Sodium 136 mmol/L (136-145); Total Protein 6.6 g/dL (6.4-8.2)
[2023-05-24 10:49] LABS: Potassium 2.9 mmol/L (3.5-5.1)
[2023-05-24] MEDS: Potassium Chloride 20 MEQ TABCR 40 MEQ PO (12:56)
[2023-05-24] MEDS: Metoclopramide 10 MG TAB PO (12:57)
--- NOTE | 2023-05-24 13:45 | PHA.REVIEW2 ---
Pharmacy Admission Review Admission Clinical Review Admission Pharmacy Review: (Updated 05/24/23 @ 07:24 by Broderick Rubi) Hypokalemia due to excessive gastrointestinal loss of potassium (Acute) Hyperglycemia (Acute) Acute hypokalemia (Acute) Hypomagnesemia (Acute) Vomiting (Acute) Acute dehydration (Acute) Cannabinoid hyperemesis syndrome (Acute) ibuprofen [From Advil] Allergy (Severe, Verified 05/24/23 01:45) throat closes pomegranate Allergy (Severe, Verified 05/24/23 01:45) Anaphylaxis citalopram Adverse Reaction (Severe, Verified 05/24/23 01:45) Bodily harm Resuscitation Status Full Code Height 5 ft 4 in Weight 95 kg Pharmacy Admission Review Renal Dosing Renal Dosing: BUN 13 mg/dL (7-18) 05/24/23 10:10 Creatinine 0.7 mg/dL (0.55-1.02) 05/24/23 10:10 Medications needing adjustments: Reviewed (CrCl 121.81 mL/min) Anticoagulation Anticoagulation: Hgb 12.6 g/dL (11.2-15.7) D 05/24/23 04:45 Hct 37.1 % (36.0-46.0) 05/24/23 04:45 Plt Count 353 10^3/uL (130-400) 05/24/23 04:45 Creatinine 0.7 mg/dL (0.55-1.02) 05/24/23 10:10 DVT Prophylaxis: Reviewed Medications: Enoxaparin (40mg q24h) Relevant Labs Relevant Labs: Sodium 136 mmol/L (136-145) 05/24/23 10:10 Potassium 2.9 mmol/L (3.5-5.1) L* 05/24/23 10:10 Chloride 99 mmol/L (98-107) 05/24/23 10:10 Magnesium 1.7 mg/dL (1.8-2.4) L 05/24/23 01:35 Electrolytes, C-Reactive P, ESR: Reviewed (K was 2.9 at 1010, has order for ROXANA potassium 40 MEQ BID and 20 MEQ BID PRN. Repeat labs are pending.) DM Control DM Control: Reviewed Insulin Dosing, Diabetic Medication: Has order for SS insulin. Glucose 222 at 1256 today. Cardiac Review BP, HR, EF%: Reviewed (BP WNL, HR 105) QTc Review QTc: Reviewed (430 EKG on 02/25/23) IV to PO Switch IV Medications: Reviewed Home Meds Home Med List reviewed: Reviewed Relevent Home Meds Not ordered & why?: Patient has multiple antiemetics listed as active on home med list, most of these she has not picked up in quite a while. Discussed with provider, who decided to put patient on Reglan only at this time. Omeprazole and Jardiance (on hold while in hospital) do not have orders. Patient also picked up duloxetine on 04/27/23 but it is not listed as active on med list. Reached out to provider who asked to have orders put in for the omeprazole and duloxetine. Duloxetine was added to patients home med list. Current Meds Current Medication Order Review: Reviewed
--- NOTE | 2023-05-24 16:02 | DSE_ITS ---
Date of service: 05/24/23 Time of Service: 16:20 DS: Diagnosis Discharge Diagnosis (1) Acute dehydration: Status: Acute Asessment and Plan: - Secondary to cannabinoid hyperemesis -Continue home antiemetics at discharge -Was given IV fluids and was able to tolerate liquids prior to discharge (2) Cannabinoid hyperemesis syndrome: Status: Acute Asessment and Plan: - Patient had similar episode in the past -Had stopped for 3 months but may be continuing to use -Recommend continuing to follow-up with [facility] (3) Hypokalemia due to excessive gastrointestinal loss of potassium: Status: Acute Asessment and Plan: - Repleted during hospitalization -Potassium improved -Continue home repletion (4) Hypomagnesemia: Status: Acute Asessment and Plan: - Secondary to hyperemesis as noted above -Repleted during hospitalization, now improved (5) Gastroparesis: Status: Chronic (6) IDDM (insulin dependent diabetes mellitus): Status: Chronic Asessment and Plan: - Continue home insulin regimen Discharge Plan Disposition Patient Disposition: Home Condition: Good Discharge Details Reason For Visit: Hyperemesis, Hypokalemia Admit Date/Time: 05/24/23 04:09 Admit Provider: Broderick Rubi Attending Provider: Broderick Rubi Primary Care Provider: Unknown,Unknown Hospital Course Hospital Course: Patient initially admitted with intractable nausea and vomiting presumed to be secondary to either cyclical vomiting syndrome or marijuana hyperemesis. She was given IV fluids and had electrolytes replaced. However, later in the day the patient stated that she felt significantly better was able to tolerate clear liquids without antiemetics and therefore was determined to be stable for discharge Home Meds and New Rx's Prescriptions: Continued metoclopramide HCl [Reglan] 10 mg tablet 10 mg PO Q6H 30 Days Qty: 120 5RF Rx Instructions: take 30 minutes before meals and at bedtime omeprazole 40 mg capsule,delayed release(DR/EC) 40 mg PO DAILY Qty: 30 5RF potassium chloride 20 mEq tablet extended release 20 meq PO BID PRN Rx Instructions: during times of gastroparesis, n/v magnesium chloride 64 mg tablet,delayed release (DR/EC) 64 mg PO DAILY PRN Rx Instructions: during times of gastroparesis, n/v gabapentin 300 mg Tablet 300 - 900 mg PO DIRECTED Rx Instructions: 300 qam 900 hs insulin glargine [Lantus Solostar U-100 Insulin] 100 unit/mL (3 mL) insulin pen 40 unit SUBCUT HS Patient Comments: INJECT 40 UNITS SUBCUTANEOUSLY AT BEDTIME insulin aspart U-100 [Novolog FlexPen U-100 Insulin] 100 unit/mL (3 mL) insulin pen See Rx Instructions SUBCUT TID Patient Comments: adjusted to carbs and pre-meal BS, up to 8u SUBCUTANEOUSLY THREE TIMES DAILY WITH MEALS Rx Instructions: subcutaneously three times a day; lidocaine [Lidoderm] 5 % adhesive patch,medicated 1 patch topical DIRECTED Patient Comments: PLACE 1 PATCH ONTO THE SKIN DAILY. PATCHE(S) MAY REMAIN IN PLACE FOR UP TO 12 HOURS IN ANY 24-HOUR PERIOD nicotine 7 mg/24 hr patch 24 hour 1 patch topical DAILY Patient Comments: APPLY 1 PATCH DAILY TOPICALLY TO SKIN WITHOUT HAIR. APPLY TO A DIFFERENT SITE AT THE SAME TIME EACH DAY, AFTER COMPLETION OF 14MG PATCHES duloxetine 40 mg capsule,delayed release(DR/EC) 40 mg PO DAILY Patient Comments: TAKE 1 CAPSULE BY MOUTH ONCE DAILY Jardiance 10 mg Tablet 10 mg PO DAILY Qty: 30 0RF tramadol 50 mg Tablet 50 mg PO Q6H PRN PRNQty: 30 0RF ondansetron 4 mg tablet,disintegrating 4 mg PO Q6H PRNQty: 60 0RF Discontinued promethazine 25 mg tablet 25 mg PO TID PRN (Reason: nausea and vomiting) Qty: 7 0RF Patient Comments: not taking promethazine 25 mg suppository 25 mg RI Q6H PRN (Reason: nausea and vomiting) Qty: 12 0RF prochlorperazine maleate 10 mg tablet 10 mg PO TID PRN (Reason: nausea and vomiting) Qty: 10 0RF No Action (DME) Dexcom G6 Sensor Device See Rx Instructions .Route Qty: 6 0RF Rx Instructions: As directed Discharge Instructions Instructions: Hypokalemia (DC), Acute Nausea and Vomiting (DC) Stand Alone Forms: Nursing Discharge Form Referrals: Unknown,Unknown [Primary Care Provider] - (Please call PCP tomorrow to make a follow up appointment for 1-2 week ) Activity:: Activity as Tolerated Equipment/Supplies:: No Equipment Needed Diet:: As Tolerated Discharge Orders Discharge Orders: Discharge Order (Routine); Ordered 05/24/23 Ordered By: Callum Bradford DS: Summary Time Spent with Patient providing and/or coordinating discharge services: Greater than 30 minutes Status at Discharge Functional status at discharge: independent ambulation Overall status at discharge: patient is back to baseline Mental Status: mental status grossly normal Speech and Movement: speech and movement normal Mood: congruent mood Affect: normal affect Exam Narrative Exam Narrative: Well-appearing female sitting up on the edge of the bed in no acute distress, ANO x 4, heart regular rhythm, lungs clear to auscultation bilaterally, abdomen soft, nontender nondistended Psych Mental Status: mental status grossly normal Speech and Movement: speech and movement normal Mood: congruent mood Affect: normal affect DS: Data Vitals/I&O Vitals and I&O: Vital Signs Temperature 98.1 F 05/24/23 15:39 Temperature Source Tympanic 05/24/23 15:39 Pulse 100 H 05/24/23 15:39 Pulse Rhythm Regular 05/24/23 08:54 Pulse 115 H 05/24/23 04:50 Respiratory Rate 18 05/24/23 15:39 Respiratory Effort Normal, Non-Labored 05/24/23 08:54 Respiratory Depth Normal 05/24/23 08:54 Respiratory Pattern Normal 05/24/23 08:54 Blood Pressure 144/93 H 05/24/23 15:39 Blood Pressure Mean 87 05/24/23 04:41 Blood Pressure Position Right Lateral 05/24/23 01:41 Pulse Oximetry 100 05/24/23 15:39 Oxygen Delivery Method Room Air 05/24/23 15:39 Oxygen Flow Rate 0 05/24/23 15:39 Pain Level 0 05/24/23 15:59 Comment vitals called over radio 05/24/23 15:39 Intake & Output 05/23/23 05/24/23 05/24/23 17:59 05:59 17:59 Intake Total 3250 / 3250 3360 / 3360 Balance 3250 / 3250 3360 / 3360 Weight 209 lb 7.026 oz Intake: IV 3250 / 3250 3000 / 3000 Oral 360 / 360 Other: Urine Appearance Clear Comment pt is independent in room, pt denies any issues with voiding at this time Voiding Methods Toilet Data Completed and Pending Labs on day of discharge: Labs from last 24 hours 05/24/23 05/24/23 05/24/23 22:00 16:00 10:10 WBC RBC Hgb Hct MCV MCH MCHC RDW Plt Count MPV Immature Gran % Neutrophils % Lymphocytes % Monocytes % Eosinophils % Basophils % Nucleated RBC % Absolute Neutrophils Absolute Lymphocytes Absolute Monocytes Absolute Eosinophils Absolute Basophils RBC Morphology VBG pH VBG pCO2 VBG pO2 VBG HCO3 VBG Total CO2 VBG O2 Saturation VBG Base Excess Sodium Pending Pending 136 Potassium Pending Pending 2.9 L* Chloride Pending Pending 99 Carbon Dioxide Pending Pending 31.5 Anion Gap Pending Pending 5.5 BUN Pending Pending 13 Creatinine Pending Pending 0.7 Est GFR (CKD-EPI 2020) Pending Pending 113.46 Glucose Pending Pending 259 H Calcium Pending Pending 8.5 Magnesium Total Bilirubin Pending Pending 0.3 AST Pending Pending 15 ALT Pending Pending 20 Alkaline Phosphatase Pending Pending 86 Total Protein Pending Pending 6.6 Albumin Pending Pending 2.9 L Lipase Urine Color Urine Clarity Urine pH Ur Specific [place] Urine Protein Urine Ketones Urine Blood Urine Nitrite Urine Bilirubin Urine Urobilinogen Ur Leukocyte Esterase Urine RBC Urine WBC Ur Epithelial Cells Urine Crystals Urine Bacteria Urine Mucus Ur Culture Indicated? Urine Glucose 05/24/23 05/24/23 05/24/23 04:45 03:41 01:35 WBC 16.81 H 17.53 H RBC 3.99 4.80 Hgb 12.6 D 15.0 Hct 37.1 44.0 MCV 93 92 MCH 31.6 31.3 MCHC 34.0 34.1 RDW 12.7 12.6 Plt Count 353 463 H MPV 9.5 9.4 Immature Gran % 0.5 0.5 Neutrophils % 72.8 80.0 Lymphocytes % 16.5 11.0 Monocytes % 9.9 8.3 Eosinophils % 0.1 0.0 Basophils % 0.2 0.2 Nucleated RBC % 0.0 0.0 Absolute Neutrophils 12.24 H 14.02 H Absolute Lymphocytes 2.77 1.93 Absolute Monocytes 1.66 H 1.45 H Absolute Eosinophils 0.02 0.00 Absolute Basophils 0.03 0.04 RBC Morphology Normal VBG pH 7.47 H VBG pCO2 53 H VBG pO2 31 VBG HCO3 38 H VBG Total CO2 34 H VBG O2 Saturation 57 VBG Base Excess 15 H Sodium 143 142 Potassium 3.0 L 2.9 L* Chloride 102 96 L Carbon Dioxide 34.8 H 35.7 H Anion Gap 6.2 10.3 BUN 17 23 H Creatinine 0.9 0.9 Est GFR (CKD-EPI 2020) 83.92 83.92 Glucose 230 H 343 H Calcium 8.7 10.1 Magnesium 1.7 L Total Bilirubin 0.3 AST 13 L ALT 22 Alkaline Phosphatase 114 Total Protein 8.7 H Albumin 3.9 Lipase 31 Urine Color Yellow Urine Clarity Sl Cloudy Urine pH 8.0 Ur Specific [place] 1.020 Urine Protein 30 H Urine Ketones 80 H Urine Blood Negative Urine Nitrite Negative Urine Bilirubin Negative Urine Urobilinogen 0.2 Ur Leukocyte Esterase Negative Urine RBC 0-2 Urine WBC 3-5 Ur Epithelial Cells Moderate Urine Crystals Moderate Amorphous Urine Bacteria Few Urine Mucus Negative Ur Culture Indicated? No Urine Glucose 500 H PFSH All Active Problems (Updated 05/24/23 @ 07:24 by Broderick Rubi) Hypokalemia due to excessive gastrointestinal loss of potassium (Acute) Hyperglycemia (Acute) Acute hypokalemia (Acute) Hypomagnesemia (Acute) Corns and callosities (Acute) Leukocytosis (Acute) Hypomagnesemia (Acute) Chronic nausea (Acute) Calf pain (Acute) Cellulitis of foot (Acute) Diabetic toe ulcer (Acute) Abscess (Acute) Vomiting (Acute) Gastroparesis (Chronic) Vomiting (Acute) Acute dehydration (Acute) IDDM (insulin dependent diabetes mellitus) (Chronic) Tobacco abuse (Acute) Cannabinoid hyperemesis syndrome (Acute) Upper GI bleeding (Acute) UTI (urinary tract infection) (Acute) Hypokalemia (Acute) Type 2 diabetes mellitus with diabetic neuropathy (Chronic) Ulcer of other part of foot (Acute) Amputation of toe of left foot (Acute) Infection of toe (Acute) Osteomyelitis (Acute) Medical History Ulcerative esophagitis Peripheral neuropathy History of osteomyelitis IBS (irritable bowel syndrome) History of kidney stones Chest pain r/t Anxiety Back pain Cellulitis of third toe, left Type 2 diabetes mellitus History of cellulitis toe Suicide attempt Anxiety and depression Diabetic neuropathy Diabetes Type 1, per patient she said she was told she had diabetes type 2. 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 Maternal Cousin Breast cancer Maternal Cousin Breast cancer Maternal Cousin Breast cancer Social History Smoking/Tobacco Use Status: Current every day Tobacco Type: cigarettes Smoking risk assessment performed?: Yes Alcohol Intake: current Alcohol Intake frequency: holidays/special occasions only Drug use: Daily Substance use type: marijuana Details: last marijuana was last week Housing: house Do you feel safe at home: Yes Do you feel safe in your relationship?: Yes Time Spent with Patient Time Spent with Patient: <45 minutes Time was spent: preparing to see the patient(eg.review tests), obtaining and/or reviewing separately otained hiistory, referring, communicating with other health health care / medical job titles, indepentently interpreting results, counseling the patient and care coordination
[2023-05-24 16:32] LABS: ALT 23 U/L (14-59); AST 23 U/L (15-37); Albumin 3.7 g/dL (3.4-5.0); Alkaline Phosphatase 101 U/L (46-116); Anion Gap 5.2 mmol/L (3-11); BUN 12 mg/dL (7-18); Bilirubin, Total 0.4 mg/dL (0.2-1.0); CO2 30.8 mmol/L (21.0-32.0); CREATININE 0.7 mg/dL (0.55-1.02); Calcium 9.4 mg/dL (8.5-10.1); Chloride 100 mmol/L (98-107); Estimated GFR 113.46 (mL/min/1.73m2); Glucose 144 mg/dL (74-106); Potassium 3.3 mmol/L (3.5-5.1); Sodium 136 mmol/L (136-145); Total Protein 8.1 g/dL (6.4-8.2)
--- NOTE | 2023-05-24 16:45 | CHAPLAIN ---
I had a brief visit with Cristy today. She was resting in bed. She expects her will be in to visit [place]. She was pleasant and polite but did not seem interested in further conversation.
--- NOTE | 2023-05-24 17:51 | CMDISCH_ITS ---
Date of service: 05/24/23 Time of Service: 17:51 LACE Index Scoring Tool Questions: Length of Stay (in days): 1 Was the patient admitted via the E.D.?: Yes Comorbidities: Diabetes w/o Complication E.D. Visits: 8 Answers: Total Score: 9 Risk of Readmission: Low Risk Care Management Discharge Plan Reason for Hospitalization: Hyperemesis, hypokalemia Discharge Plan: Cristy will return home with no new services. Her wi ll drive her home via private vehicle. She will follow up with her PCP and discharge plan of care. She is happy to be going home. Patient/Family Education Needs: Review discharge instructions and limitations, discussion of self care needs including ask me three.
== END 2023-05-24 16:45 | disposition home or self-care (01) | DRG 641 ==
LOC: ER 04:15 → MS 07:01
PROVIDERS: Admitting Provider Family Medicine; Emergency Provider Student in an Organized Health Care Education/Training Program; Visit Provider Family Medicine
DX: E86.0 Dehydration (principal); R11.2 Nausea with vomiting, unspecified; F12.90 Cannabis use, unspecified, uncomplicated; E83.42 Hypomagnesemia; E87.6 Hypokalemia; E11.43 Type 2 diabetes mellitus with diabetic autonomic (poly)neuropathy; K31.84 Gastroparesis; E87.3 Alkalosis; Z79.4 Long term (current) use of insulin; F17.210 Nicotine dependence, cigarettes, uncomplicated; Z89.422 Acquired absence of other left toe(s); E11.42 Type 2 diabetes mellitus with diabetic polyneuropathy; F41.8 Other specified anxiety disorders; Z89.412 Acquired absence of left great toe
CPT/HCPCS: 00123; 36415; 80048; 80053; 82805; 83690; 96365; 96368; 96375; 99285; J1650; 81003; 81015; 83735; 85025; 99236; J0780; J2405; J3480

== ENCOUNTER 2023-05-26 21:52 | Emergency (ER) | payer BC, MEDICAID, SELFPAY ==
[2023-05-26 21:56] VITALS: BP 166/96; PULSE 104; RESP 16; TEMP 37.1; O2SAT 98
[2023-05-26 22:14] VITALS: BP 166/96; PULSE 93; RESP 16; TEMP 37.1; O2SAT 98
--- NOTE | 2023-05-26 22:22 | W.ED.GENAD ---
Discharge Plan Disposition Patient Disposition: Home Condition: Improving Discharge Details Clinical Impression: Gastroenteritis Primary Care Provider: Unknown,Unknown ED Provider: Maulik Monaco Meds and New Rx's Prescriptions: Continued metoclopramide HCl [Reglan] 10 mg tablet 10 mg PO Q6H 30 Days Qty: 120 5RF Rx Instructions: take 30 minutes before meals and at bedtime omeprazole 40 mg capsule,delayed release(DR/EC) 40 mg PO DAILY Qty: 30 5RF magnesium chloride 64 mg tablet,delayed release (DR/EC) 64 mg PO DAILY PRN Rx Instructions: during times of gastroparesis, n/v gabapentin 300 mg Tablet 300 - 900 mg PO DIRECTED Rx Instructions: 300 qam 900 hs insulin glargine [Lantus Solostar U-100 Insulin] 100 unit/mL (3 mL) insulin pen 40 unit SUBCUT HS Patient Comments: INJECT 40 UNITS SUBCUTANEOUSLY AT BEDTIME insulin aspart U-100 [Novolog FlexPen U-100 Insulin] 100 unit/mL (3 mL) insulin pen See Rx Instructions SUBCUT TID Patient Comments: adjusted to carbs and pre-meal BS, up to 8u SUBCUTANEOUSLY THREE TIMES DAILY WITH MEALS Rx Instructions: subcutaneously three times a day; lidocaine [Lidoderm] 5 % adhesive patch,medicated 1 patch topical DIRECTED Patient Comments: PLACE 1 PATCH ONTO THE SKIN DAILY. PATCHE(S) MAY REMAIN IN PLACE FOR UP TO 12 HOURS IN ANY 24-HOUR PERIOD nicotine 7 mg/24 hr patch 24 hour 1 patch topical DAILY Patient Comments: APPLY 1 PATCH DAILY TOPICALLY TO SKIN WITHOUT HAIR. APPLY TO A DIFFERENT SITE AT THE SAME TIME EACH DAY, AFTER COMPLETION OF 14MG PATCHES duloxetine 40 mg capsule,delayed release(DR/EC) 40 mg PO DAILY Patient Comments: TAKE 1 CAPSULE BY MOUTH ONCE DAILY (DME) Dexcom G6 Sensor Device See Rx Instructions .Route Qty: 6 0RF Rx Instructions: As directed Jardiance 10 mg Tablet 10 mg PO DAILY Qty: 30 0RF tramadol 50 mg Tablet 50 mg PO Q6H PRN PRNQty: 30 0RF ondansetron 4 mg tablet,disintegrating 4 mg PO Q6H PRNQty: 60 0RF Discharge Instructions Instructions: Gastroenteritis (ED) Discharge Data Discharge Physician: Maulik Monaco Medical Decision Making MDM: Summary: Patient presents emergency department complaining of nausea and now diarrhea. She was admitted to the hospital 2 days ago with the same symptoms but did not have the diarrhea. In the emergency department she had labs done she has a white count but the patient denies any abdominal pain she received IV fluid hydration and has spent 5 hours in the emergency department feels much improved states that she is not nauseous anymore and would like to be discharged with her . Labs are essentially unremarkable the patient is a type I diabetic but she is not ketotic her blood sugar was mildly elevated and after hydration her vitals are returned to normal Data Review Analysis All the data on this patient was reviewed by me including laboratory and imaging studies as well as bedside studies performed by me Independent review of Studies Imaging No imaging was necessary at this time she denied any abdominal pain Lab: Labs show elevation of the white count but no acidosis no ketosis just hyperglycemia Risk Stratification: Patient who is a diabetic with hyperglycemia and acute diarrheal infection and gastroenteritis who has improved after IV hydration she is no longer nauseous and is able to drink and will be discharged Differential Diagnosis: 1. Acute gastroenteritis 2. Acute diarrheal infection 3. Hyperglycemia 4. DKA 5. Consultants: Shared disposition: Patient states that she is ready to be discharged she spent time in the emergency department with IV fluids and Zofran and as mentioned Impression: Lab Data Lab results reviewed: Yes I reviewed the patient's lab results. HPI General Date/Time Provider Initiated Documentation: 05/26/23 21:53. HPI Narrative: Patient presents emergency department complaining of nausea vomiting diarrhea she was admitted to the hospital for intractable vomiting 2 days ago but went home and states that she was still nauseous presents started having profuse watery diarrhea. She reports cramping and nausea. Denies any significant vomiting. Related Data Home Medications Medication Instructions Recorded Confirmed gabapentin 300 mg tablet 300 - 900 mg PO DIRECTED 01/24/21 05/26/23 insulin glargine 100 unit/mL (3 40 unit subcut HS 01/14/22 05/26/23 mL) subcutaneous pen (Lantus Solostar U-100 Insulin) blood-glucose sensor ([employer] G6 #6 ea 05/03/22 05/26/23 Sensor device) lidocaine 5 % topical patch 1 patch topical DIRECTED 05/25/22 05/26/23 (Lidoderm) nicotine 7 mg/24 hr daily 1 patch topical DAILY 05/25/22 05/26/23 transdermal patch empagliflozin 10 mg tablet 10 mg PO DAILY #30 tabs 08/28/22 05/26/23 (Jardiance) tramadol 50 mg tablet 50 mg PO Q6H PRN PRN #30 tabs 08/28/22 05/26/23 metoclopramide HCl 10 mg tablet 10 mg PO Q6H 30 days #120 tabs 11/09/22 05/26/23 (Reglan) omeprazole 40 mg capsule,delayed 40 mg PO DAILY #30 caps 11/09/22 05/26/23 release ondansetron 4 mg disintegrating 4 mg PO Q6H PRN #60 tabs 02/20/23 05/26/23 tablet insulin aspart U-100 100 unit/mL See Rx Instructions subcut TID 04/14/23 05/26/23 (3 mL) subcutaneous pen (Novolog FlexPen U-100 Insulin aspart) magnesium chloride 64 mg 64 mg PO DAILY PRN 04/14/23 05/26/23 (magnesium chloride) tablet,delayed release duloxetine 40 mg capsule,delayed 40 mg PO DAILY 05/24/23 05/26/23 release Previous Rx's Medication Instructions Recorded blood-glucose sensor (Dexcom G6 #6 ea 05/03/22 Sensor device) empagliflozin 10 mg tablet 10 mg PO DAILY #30 tabs 08/28/22 (Jardiance) tramadol 50 mg tablet 50 mg PO Q6H PRN PRN #30 tabs 08/28/22 metoclopramide HCl 10 mg tablet 10 mg PO Q6H 30 days #120 tabs 11/09/22 (Reglan) omeprazole 40 mg capsule,delayed 40 mg PO DAILY #30 caps 11/09/22 release ondansetron 4 mg disintegrating 4 mg PO Q6H PRN #60 tabs 02/20/23 tablet Allergies Allergy/AdvReac Type Severity Reaction Status Date / Time ibuprofen [From Advil] Allergy Severe throat Verified 05/26/23 22:01 closes pomegranate Allergy Severe Anaphylaxis Verified 05/26/23 22:01 citalopram AdvReac Severe Bodily harm Verified 05/26/23 22:01 General Stated Complaint: Nausea/Vomit/Diar ARNOLD: 3 Review of Systems Narrative: Review of Systems: Constitutional: No fevers, chills, sweats Eye: No recent visual problems ENT: No ear pain, nasal congestion, sore throat Respiratory: No shortness of breath, cough Cardiovascular: No Chest pain, palpitations, syncope Gastrointestinal: No nausea, vomiting, diarrhea Genitourinary: No hematuria Slick/Lymph: Negative for bruising tendency, swollen lymph glands Endocrine: Negative for excessive thirst, excessive hunger Musculoskeletal: No back pain, neck pain, joint pain, muscle pain, decreased range of motion Integumentary: No rash, pruritus, abrasions Neurologic: Alert & oriented X 4 Psychiatric: No anxiety, depression PFSH All Active Problems (Updated 05/27/23 @ 05:52 by Maulik Monaco MD) Gastroenteritis (Acute) Corns and callosities (Acute) Leukocytosis (Acute) Hypomagnesemia (Acute) Chronic nausea (Acute) Calf pain (Acute) Cellulitis of foot (Acute) Diabetic toe ulcer (Acute) Abscess (Acute) Vomiting (Acute) Gastroparesis (Chronic) IDDM (insulin dependent diabetes mellitus) (Chronic) Tobacco abuse (Acute) Cannabinoid hyperemesis syndrome (Acute) Upper GI bleeding (Acute) UTI (urinary tract infection) (Acute) Hypokalemia (Acute) Type 2 diabetes mellitus with diabetic neuropathy (Chronic) Ulcer of other part of foot (Acute) Amputation of toe of left foot (Acute) Infection of toe (Acute) Osteomyelitis (Acute) Medical History Ulcerative esophagitis Peripheral neuropathy History of osteomyelitis IBS (irritable bowel syndrome) History of kidney stones Chest pain r/t Anxiety Back pain Cellulitis of third toe, left Type 2 diabetes mellitus History of cellulitis toe Suicide attempt Anxiety and depression Diabetic neuropathy Diabetes Type 1, per patient she said she was told she had diabetes type 2. 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 Maternal Cousin Breast cancer Maternal Cousin Breast cancer Maternal Cousin Breast cancer Social History Smoking/Tobacco Use Status: Current every day Tobacco Type: cigarettes Smoking risk assessment performed?: Yes Alcohol Intake: current Alcohol Intake frequency: holidays/special occasions only Drug use: Daily Substance use type: marijuana Details: last marijuana was last week Housing: house Do you feel safe at home: Yes Do you feel safe in your relationship?: Yes Exam Narrative Exam Narrative: Exam; vitals signs as reported above normal Constitutional; In no acute distress, afebrile General: cooperative, healthy appearing, comfortable and no acute distress HEENT: Head: normal to inspection, no palpable skull fracture and normocephalic atraumatic Eyes: : appearance normal, both eyes and all related structures EOM intact bilaterally Pupils: PERRL : conjunctiva normal Direct ophthalmoscopy: normal light reflex, normal conjunctiva, normal visual acuity Ears: Normal TM, normal external canal Nose: normal no rhinorreha Neck no JVD, supple non tender Neck: normal visual inspection, full ROM and no lymphadenopathy Chest: normal inspection of the chest Respiratory : normal respiratory effort and able to speak in complete sentences no wheezing no rales Cardio Rate: regular rate, rhythm: regular rhythm normal heart sounds S1 and S2 no murmurs, gallops, or rubs GI : normal to inspection, normal bowel sounds, soft, non tender, non distended, no organomegaly Back/Spine/ no CVA tenderness Thoracic/Lumbar Spine: no tenderness or deformities Skin no rashes or lesions Neuro: patient alert oriented x 4 and no meningeal signs, Cranial Nerves: CN's II-XI intact bilaterally, Cognition: normal cognition, Speech: speech normal, Gait: normal gait, Depp tendon reflexes normal 2+ muscle strength 5/5 bilaterally Extremities, no edema, full range of motion, normal strength Course Vital Signs Vital signs: Vital Signs Temperature 37.1 C 05/26/23 21:56 Pulse 104 H 05/26/23 21:56 Respiratory Rate 16 05/26/23 21:56 Blood Pressure 166/96 H 05/26/23 21:56 Pulse Oximetry 98 05/26/23 21:56 Temperature 37.1 C 05/26/23 22:14 Pulse 93 H 05/26/23 22:14 Respiratory Rate 16 05/26/23 22:14 Respiratory Effort Normal 05/26/23 22:04 Blood Pressure 166/96 H 05/26/23 22:14 Blood Pressure Position Supine 05/26/23 22:14 Pulse Oximetry 98 05/26/23 22:14 Oxygen Delivery Method Room Air 05/26/23 22:14 Pain Level 9 05/26/23 22:14
[2023-05-26] MEDS: Normal Saline 1,000 ML 1000 ML IV ×2 (22:30→23:41)
[2023-05-26] MEDS: Ondansetron 4 MG/2 ML VIAL IVP (22:30)
[2023-05-26 22:36] LABS: Abs Immature Grans 0.08 10^3/uL (0.0-0.06); HCT 42.5 % (36.0-46.0); HGB 14.9 g/dL (11.2-15.7); MCH 31.2 pg (27.0-33.0); MCHC 35.1 % (32.0-36.0); MCV 89 fL (80-95); MPV 9.3 fL (8.0-11.0); Platelet Count 428 10^3/uL (130-400); RBC 4.77 10^6/uL (3.93-5.22); RDW-SD 39.8 fL; WBC 18.82 10^3/uL (4.4-10.8)
[2023-05-26 22:47] LABS: Lipase 37 U/L (16-77)
[2023-05-26 22:50] LABS: Absolute Eosinophil Count 0.19 10^3/uL (0.0-0.7); Absolute Lymphocyte Count 5.83 10^3/uL (1.2-3.4); Absolute Monocyte Count 1.51 10^3/uL (0.1-0.8); Absolute Neutrophil Count 11.29 10^3/uL (1.2-6.7); Atypical Lymphocytes % 5
[2023-05-26 22:51] LABS: Diff Comment Manual Differential; RBC Morphology Normal
[2023-05-26 22:53] LABS: ALT 22 U/L (14-59); AST 14 U/L (15-37); Albumin 3.6 g/dL (3.4-5.0); Alkaline Phosphatase 97 U/L (46-116); Anion Gap 7.1 mmol/L (3-11); BUN 10 mg/dL (7-18); Bilirubin, Total 0.6 mg/dL (0.2-1.0); CO2 32.9 mmol/L (21.0-32.0); CREATININE 0.8 mg/dL (0.55-1.02); Calcium 9.3 mg/dL (8.5-10.1); Chloride 94 mmol/L (98-107); Estimated GFR 96.66 (mL/min/1.73m2); Glucose 302 mg/dL (74-106); Magnesium 1.8 mg/dL (1.8-2.4); Potassium 3.2 mmol/L (3.5-5.1); Sodium 134 mmol/L (136-145); Total Protein 7.6 g/dL (6.4-8.2)
[2023-05-26 22:54] LABS: ETHANOL BLOOD < 3.0 mg/dL (<10)
[2023-05-27] VITALS (50 sets, daily range): BP systolic 116–172; BP diastolic 70–103; PULSE 96–108; O2SAT 93–100
[2023-05-27 00:32] LABS: Bilirubin Negative (Negative); Blood Negative (Negative); Clarity Sl Cloudy (Clear); Glucose 500 mg/dL (Negative); Ketones Negative (Negative); Leukocyte Esterase Negative (Negative); Nitrite Negative (Negative); Specific Gravity 1.015 (1.005-1.025); pH 7.5 (5-8)
[2023-05-27] MEDS: Ondansetron 4 MG/2 ML VIAL IVP (00:52)
[2023-05-27] MEDS: Normal Saline 1,000 ML 1000 ML IV (00:57)
== END 2023-05-27 06:08 | disposition home or self-care (01) ==
PROVIDERS: Emergency Provider Emergency Medicine Emergency Medical Services
DX: K52.9 Noninfective gastroenteritis and colitis, unspecified (principal); R73.09 Other abnormal glucose; R19.7 Diarrhea, unspecified; E11.40 Type 2 diabetes mellitus with diabetic neuropathy, unspecified
CPT/HCPCS: 80053; 82805; 83690; 96361; 96374; 96375; 99284; 80320; 81003; 83735; 85025; 99283; J2405

== ENCOUNTER 2023-08-06 05:46 | Emergency (ER) | payer BC, MEDICAID, SELFPAY ==
--- NOTE | 2023-08-06 05:45 | DI.RAD_ITS ---
Exam(s) XR FOOT LT COMPLETE EXAM: XR FOOT LT COMPLETE CLINICAL HISTORY: eval for osteo at distal 1-3 metatarsals. TECHNIQUE: 2D digital imaging was performed. Three views. COMPARISON: CR XR FOOT LT COMPLETE from 08/26/2022 MR MR LOWER EXTREMITY LT WO/W from 08/27/2022 FINDINGS: BONES: Amputation of the 1st and 2nd toes as well as portion of the 3rd toe again noted. No acute fr acture is present. No bony destructive lesion is seen. Prominent plantar calcaneal spur. JOINTS: No dislocation present. SOFT TISSUE: Soft tissue swelling. No foreign body or gas collection. IMPRESSION: Soft tissue swelling. No bony erosions. DATA REPOSITORY: RADIATION DOSE DELIVERED:
[2023-08-06 05:49] VITALS: BP 110/65; PULSE 94; RESP 20; TEMP 36.6; O2SAT 98
--- NOTE | 2023-08-06 05:56 | W.ED.GENAD ---
Discharge Plan Disposition Patient Disposition: Home Condition: Good Discharge Details Clinical Impression: Cellulitis of foot, left, DVT (deep venous thrombosis) Primary Care Provider: Unknown,Unknown ED Provider: Mervin Crowell Home Meds and New Rx's Prescriptions: New ciprofloxacin HCl [Cipro] 500 mg tablet 500 mg PO BID 14 Days Qty: 28 0RF No Action metoclopramide HCl [Reglan] 10 mg tablet 10 mg PO Q6H 30 Days Qty: 120 5RF Rx Instructions: take 30 minutes before meals and at bedtime omeprazole 40 mg capsule,delayed release(DR/EC) 40 mg PO DAILY Qty: 30 5RF magnesium chloride 64 mg tablet,delayed release (DR/EC) 64 mg PO DAILY PRN Rx Instructions: during times of gastroparesis, n/v gabapentin 300 mg Tablet 300 - 900 mg PO DIRECTED Rx Instructions: 300 qam 900 hs insulin glargine [Lantus Solostar U-100 Insulin] 100 unit/mL (3 mL) insulin pen 40 unit SUBCUT HS Patient Comments: INJECT 40 UNITS SUBCUTANEOUSLY AT BEDTIME insulin aspart U-100 [Novolog FlexPen U-100 Insulin] 100 unit/mL (3 mL) insulin pen See Rx Instructions SUBCUT TID Patient Comments: adjusted to carbs and pre-meal BS, up to 8u SUBCUTANEOUSLY THREE TIMES DAILY WITH MEALS Rx Instructions: subcutaneously three times a day; lidocaine [Lidoderm] 5 % adhesive patch,medicated 1 patch topical DIRECTED Patient Comments: PLACE 1 PATCH ONTO THE SKIN DAILY. PATCHE(S) MAY REMAIN IN PLACE FOR UP TO 12 HOURS IN ANY 24-HOUR PERIOD nicotine 7 mg/24 hr patch 24 hour 1 patch topical DAILY Patient Comments: APPLY 1 PATCH DAILY TOPICALLY TO SKIN WITHOUT HAIR. APPLY TO A DIFFERENT SITE AT THE SAME TIME EACH DAY, AFTER COMPLETION OF 14MG PATCHES duloxetine 40 mg capsule,delayed release(DR/EC) 40 mg PO DAILY Patient Comments: TAKE 1 CAPSULE BY MOUTH ONCE DAILY (DME) Dexcom G6 Sensor Device See Rx Instructions .Route Qty: 6 0RF Rx Instructions: As directed Jardiance 10 mg Tablet 10 mg PO DAILY Qty: 30 0RF tramadol 50 mg Tablet 50 mg PO Q6H PRN PRNQty: 30 0RF ondansetron 4 mg tablet,disintegrating 4 mg PO Q6H PRNQty: 60 0RF Januvia 25 mg tablet 25 mg PO DAILY Discharge Instructions Instructions: Cellulitis (ED), Deep Vein Thrombosis (ED) Additional Instructions: At this time you have 2 main problems that are going on. First: You have an infection in your foot. While there is definitely an infection in the skin, my concern is that there is also an infection in the bone. We are still waiting on the x-ray results, but we will call you later with the findings. In the meantime we are going to start you on the antibiotic that we will treat the organism that you have grown positive cultures for in the past. There is a chance that it could be a different type of skin organism that is causing the infection. If you notice that your symptoms are not improving over the next 72 hours then we will likely need to change the type of antibiotic that you are receiving. If you notice no improvement over the next 72 hours please return immediately for reassessment. Second: You also have evidence of what appears to be a small blood clot in your leg. Please take 10 mg of Eliquis (2 tabs) every 12 hours. Please return here for your ultrasound on Tuesday. Please call them early in the morning at the number provided to schedule the appointment time. Please then follow-up in the ER after the ultrasound for reassessment of your infection, potential discussion of antibiotic change if needed, and discussion on potential anticoagulant needs. If you notice any worsening of your symptoms, or any new symptoms such as vomiting, diarrhea, fever, chills, shortness of breath, chest pain, numbness, weakness, or fainting , please return immediately to the emergency department for reevaluation. Please follow up with your primary care provider as soon as possible for reassessment and reevaluation. As always, it was a pleasure participating in your medical care today. Referrals: Madelin Ojeda DPM [[facility] STAFF PHYSICIAN] - [facility] General Date/Time Provider Initiated Documentation: 08/06/23 05:53. HPI Narrative: 38-year-old female with a past medical history of insulin-dependent diabetes mellitus, previous foot ulcer on the left foot, subsequent osteomyelitis, and eventual amputation of the first second and third toes on the left foot over the last 2 years. She presents today for evaluation of redness tenderness and pain in the left foot. Patient states that for the last 2 to 3 days she has noticed redness and swelling in that area just proximal to the area of amputation. She admits to occasional chills, but denies any fever. Pain is made worse with palpation. It does travel slightly proximally towards the ankle and up towards the calf. She denies any chest pain or shortness of breath. She is notably on any antibiotics. She has not have an appointment with podiatry for until 5 days from now. She has no other complaints at this time. No other modifying factors. Related Data Home Medications Medication Instructions Recorded Confirmed gabapentin 300 mg tablet 300 - 900 mg PO DIRECTED 01/24/21 05/26/23 insulin glargine 100 unit/mL (3 40 unit subcut HS 01/14/22 05/26/23 mL) subcutaneous pen (Lantus Solostar U-100 Insulin) blood-glucose sensor ([employer] G6 #6 ea 05/03/22 05/26/23 Sensor device) lidocaine 5 % topical patch 1 patch topical DIRECTED 05/25/22 05/26/23 (Lidoderm) nicotine 7 mg/24 hr daily 1 patch topical DAILY 05/25/22 05/26/23 transdermal patch empagliflozin 10 mg tablet 10 mg PO DAILY #30 tabs 08/28/22 05/26/23 (Jardiance) tramadol 50 mg tablet 50 mg PO Q6H PRN PRN #30 tabs 08/28/22 05/26/23 metoclopramide HCl 10 mg tablet 10 mg PO Q6H 30 days #120 tabs 11/09/22 05/26/23 (Reglan) omeprazole 40 mg capsule,delayed 40 mg PO DAILY #30 caps 11/09/22 05/26/23 release ondansetron 4 mg disintegrating 4 mg PO Q6H PRN #60 tabs 02/20/23 05/26/23 tablet insulin aspart U-100 100 unit/mL See Rx Instructions subcut TID 04/14/23 05/26/23 (3 mL) subcutaneous pen (Novolog FlexPen U-100 Insulin aspart) magnesium chloride 64 mg 64 mg PO DAILY PRN 04/14/23 05/26/23 (magnesium chloride) tablet,delayed release duloxetine 40 mg capsule,delayed 40 mg PO DAILY 05/24/23 05/26/23 release ciprofloxacin HCl 500 mg tablet 500 mg PO BID 14 days #28 tabs 08/06/23 (Cipro) sitagliptin phosphate 25 mg tablet 25 mg PO DAILY 08/06/23 08/06/23 (Januvia) Previous Rx's Medication Instructions Recorded blood-glucose sensor ([employer] G6 #6 ea 05/03/22 Sensor device) empagliflozin 10 mg tablet 10 mg PO DAILY #30 tabs 08/28/22 (Jardiance) tramadol 50 mg tablet 50 mg PO Q6H PRN PRN #30 tabs 08/28/22 metoclopramide HCl 10 mg tablet 10 mg PO Q6H 30 days #120 tabs 11/09/22 (Reglan) omeprazole 40 mg capsule,delayed 40 mg PO DAILY #30 caps 11/09/22 release ondansetron 4 mg disintegrating 4 mg PO Q6H PRN #60 tabs 02/20/23 tablet ciprofloxacin HCl 500 mg tablet 500 mg PO BID 14 days #28 tabs 08/06/23 (Cipro) Allergies Allergy/AdvReac Type Severity Reaction Status Date / Time ibuprofen [From Advil] Allergy Severe throat Verified 08/06/23 07:27 closes pomegranate Allergy Severe Anaphylaxis Verified 08/06/23 07:27 citalopram AdvReac Severe Bodily harm Verified 08/06/23 07:27 General Stated Complaint: [employer] ARNOLD: 3 Review of Systems All systems reviewed & are unremarkable except as noted in HPI and below Exam Narrative Exam Narrative: 1.Const: Well-nourished, Well-developed, appearing stated age 2.Eyes: PERRL, no conjunctival injection, and symmetrical lids. 3.ENT: Atraumatic external nose and ears. Moist MM. Neck: Symmetric, trachea midline, No thyromegaly. 4.CVS: +S1/S2, No murmurs or gallops. Peripheral pulses 2+ and equal in all extremities. Brisk capillary refill in all extremities. 5.RESP: Unlabored respiratory effort. Clear to auscultation bilaterally. No wheezes rales or rhonchi 6.GI: Soft, Nontender/Nondistended, No hepatosplenomegaly. No guarding or rebound. 7.MSK: Normocephalic. Patient's left foot in the amputation site demonstrates mild redness, mild swelling. Redness travels on the dorsal and medial aspect somewhat proximally towards the heel. Redness stops there, however mild tenderness extends to the medial aspect of the calf. No pitting edema. Capillary refill is brisk. Dorsalis pedis pulse +1 bilaterally. 8.Skin: Warm, please see musculoskeletal. 9.Neuro: cotton weigher II-XII grossly intact. Sensation grossly intact, no focal neurologic deficits. 10.Psych: (AAO) x3. Appropriate mood and affect Course Vital Signs Vital signs: Vital Signs Temperature 36.6 C 08/06/23 05:49 Pulse 94 H 08/06/23 05:49 Respiratory Rate 20 08/06/23 05:49 Blood Pressure 110/65 08/06/23 05:49 Pulse Oximetry 98 08/06/23 05:49 Temperature 36.6 C 08/06/23 05:49 Pulse 94 H 08/06/23 05:49 Respiratory Rate 20 08/06/23 05:49 Respiratory Effort Normal 08/06/23 05:53 Blood Pressure 110/65 08/06/23 05:49 Pulse Oximetry 98 08/06/23 05:49 Lab/Test Results Lab/Test Results: 08/06/23 05:53 Blood Blood Culture - Pending 08/06/23 05:53 Blood Blood Culture - Pending Medical Decision Making 38-year-old female with a past medical history of insulin-dependent diabetes mellitus, previous foot ulcer on the left foot, subsequent osteomyelitis, and eventual amputation of the first second and third toes on the left foot over the last 2 years. She presents today for evaluation of redness tenderness and pain in the left foot. Patient states that for the last 2 to 3 days she has noticed redness and swelling in that area just proximal to the area of amputation. She admits to occasional chills, but denies any fever. Pain is made worse with palpation. It does travel slightly proximally towards the ankle and up towards the calf. She denies any chest pain or shortness of breath. She is notably on any antibiotics. She has not have an appointment with podiatry for until 5 days from now. She has no other complaints at this time. No other modifying factors. Exam demonstrates well-appearing female, mild tachycardia, left foot demonstrates redness and mild swelling to the postoperative area. Suspect potential new underlying infection. Osteomyelitis is certainly on the differential. Pain is not out of proportion. Symptoms appear clinically inconsistent with necrotizing fasciitis. No crepitus. DVT is on the differential as well but less likely due to the location. Will perform portable limited ultrasound. Due to the patient's diabetic nature, and the previous osteomyelitis, slightly elevated heart rate, we will evaluate for infection systemically, will get blood work, gently rehydrate with a liter of normal saline, get an x-ray to rule out osteomyelitis, monitor closely and reassess. Additionally review of the patient's previous cultures from the foot demonstrate that she had staph epidermis that was sensitive to Cipro. We will start treatment with Cipro here IV. 6:19 AM Bedside ultrasound was performed, patient demonstrates evidence of a noncompressible clot and what appears to be the great saphenous vein on the medial aspect of the calf, just distal to the knee. More proximally there does not appear to be any clots, and more distally there also does not appear to be any more clots. It is Tuesday, ultrasound is not available. We will place an order for outpatient ultrasound. Out of an abundance of precaution we will start the patient on anticoagulants until she can get the formal ultrasound. We discussed risks and benefits of anticoagulation, patient understands. She would like to proceed with therapy. Quality:SDOH Health Related Social Needs: No Data to Display PFSH All Active Problems (Updated 08/06/23 @ 07:24 by Mervin Crowell DO) DVT (deep venous thrombosis) (Chronic) Cellulitis of foot, left (Acute) Corns and callosities (Acute) Leukocytosis (Acute) Hypomagnesemia (Acute) Chronic nausea (Acute) Calf pain (Acute) Cellulitis of foot (Acute) Diabetic toe ulcer (Acute) Abscess (Acute) Vomiting (Acute) Gastroparesis (Chronic) IDDM (insulin dependent diabetes mellitus) (Chronic) Tobacco abuse (Acute) Cannabinoid hyperemesis syndrome (Acute) Upper GI bleeding (Acute) UTI (urinary tract infection) (Acute) Hypokalemia (Acute) Type 2 diabetes mellitus with diabetic neuropathy (Chronic) Ulcer of other part of foot (Acute) Amputation of toe of left foot (Acute) Infection of toe (Acute) Osteomyelitis (Acute) Medical History Ulcerative esophagitis Peripheral neuropathy History of osteomyelitis IBS (irritable bowel syndrome) History of kidney stones Chest pain r/t Anxiety Back pain Cellulitis of third toe, left Type 2 diabetes mellitus History of cellulitis toe Suicide attempt Anxiety and depression Diabetic neuropathy Diabetes Type 1, per patient she said she was told she had diabetes type 2. 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 Maternal Cousin Breast cancer Maternal Cousin Breast cancer Maternal Cousin Breast cancer Social History Smoking/Tobacco Use Status: Current every day Tobacco Type: cigarettes Smoking risk assessment performed?: Yes Alcohol Intake: current Alcohol Intake frequency: holidays/special occasions only Drug use: Daily Substance use type: marijuana Details: last marijuana was last week Housing: house Do you feel safe at home: Yes Do you feel safe in your relationship?: Yes POCUS Exam (ED) Limited Vascular Exam DATE OF EXAM: 08/06/23 TIME OF EXAM: 06:16 PROVIDER THAT PERFORMED THE STUDY: Mervin Crowell IS THIS A REPEAT EXAM DURING THIS ENCOUNTER: No Vascular Exam: Left lower extremity REASON FOR EXAM: Concern for DVT left lower extremity VISUALIZED STRUCTURES: Left popliteal vein and Left greater saphenous vein PERTINENT FINDINGS/IMPRESSION: Clot visualized left leg and Left leg DVT Exam Complete
[2023-08-06] MEDS: Normal Saline 1,000 ML 1000 ML IV (06:05)
[2023-08-06] MEDS: CIPROFLOXACIN 400 MG/200 ML BAG 200 MG IVPB (06:06)
[2023-08-06 06:12] LABS: Lactate 0.8 mmol/L (0.6-1.4)
[2023-08-06 06:14] LABS: ESR 33 mm/hr (0-20)
[2023-08-06 06:16] LABS: Abs Immature Grans 0.03 10^3/uL (0.0-0.06); Absolute Basophil Count 0.05 10^3/uL (0.0-0.2); Absolute Eosinophil Count 0.57 10^3/uL (0.0-0.7); Absolute Lymphocyte Count 5.11 10^3/uL (1.2-3.4); Absolute Neutrophil Count 3.85 10^3/uL (1.2-6.7); Basophils % 0.5; Eosinophils % 5.5; HCT 42.4 % (36.0-46.0); HGB 14.3 g/dL (11.2-15.7); Immature Grans % 0.3; Lymphocytes % 49.1; MCH 30.6 pg (27.0-33.0); MCHC 33.7 % (32.0-36.0); MCV 91 fL (80-95); MPV 9.5 fL (8.0-11.0); Monocytes % 7.7; Neutrophils % 36.9; Platelet Count 376 10^3/uL (130-400); RBC 4.67 10^6/uL (3.93-5.22); RDW 12.5 % (11.7-14.6); RDW-SD 41.1 fL; WBC 10.41 10^3/uL (4.4-10.8)
[2023-08-06 06:30] LABS: ALT 23 U/L (14-59); AST 18 U/L (15-37); Albumin 2.8 g/dL (3.4-5.0); Alkaline Phosphatase 108 U/L (46-116); Anion Gap 6.9 mmol/L (3-11); BUN 12 mg/dL (7-18); Bilirubin, Total 0.2 mg/dL (0.2-1.0); C-Reactive Protein 3.13 mg/dL (<or=0.5); CO2 30.1 mmol/L (21.0-32.0); CREATININE 0.6 mg/dL (0.55-1.02); Calcium 9.1 mg/dL (8.5-10.1); Chloride 102 mmol/L (98-107); Estimated GFR 117.75 (mL/min/1.73m2); Glucose 231 mg/dL (74-106); Sodium 139 mmol/L (136-145); Total Protein 7.4 g/dL (6.4-8.2)
[2023-08-06] MEDS: Apixaban 5 MG TAB 60 MG PO (06:32)
[2023-08-06 06:34] LABS: Diff Comment Agrees w/ Instrument; RBC Morphology Normal
[2023-08-06 06:47] LABS: Procalcitonin < 0.1 ng/mL
--- NOTE | 2023-08-06 07:33 | NUR.NOTE ---
Outpatient order to faxed DI for left extremity venous US; evaluation for DVT; to be done EDGARD TuesdayAugust 07; follow up in ED. Nursing Note:
[2023-08-06 07:41] VITALS: BP 139/107; PULSE 83; RESP 18; O2SAT 100
--- NOTE | 2023-08-06 09:06 | DI.VRAD_ITS ---
PROCEDURE INFORMATION: Exam: XR Left Foot Exam date and time: 08/06/2023 6:19 AM Age: 38 years old Clinical indication: Other: Eval for osteo at distal 1-3 metatarsals TECHNIQUE: Imaging protocol: Radiologic exam of the left foot. Views: 3 or more views. COMPARISON: MR LOWER EXTREMITY LT WO/W 08/27/2022 12:21 PM FINDINGS: Bones/joints: Surgical changes of 1st and 2nd metatarsophalangeal joint amputation and 3rd distal interphalangeal joint amputation. No cortical erosions, osteopenia or periosteal reaction to suggest radiographic signs of osteomyelitis. Mild degenerative disease of the midfoot joints with dorsal osteophytes. Tiny linear ossification the dorsal aspect of the metatarsal bones, likely vascular. Inferior calcaneal spur. Achilles enthesophyte. Soft tissues: There soft tissue swelling around the head of the 1st and 2nd metatarsals. IMPRESSION: No radiographic changes osteomyelitis. Dictated and Authenticated by: Gerson Ritchie MD. Ordering:TRUPTI Jeffries MD
== END 2023-08-06 07:43 | disposition home or self-care (01) ==
PROVIDERS: Emergency Provider Student in an Organized Health Care Education/Training Program
DX: L03.116 Cellulitis of left lower limb (principal); E11.40 Type 2 diabetes mellitus with diabetic neuropathy, unspecified; I82.4Z2 Acute embolism and thrombosis of unspecified deep veins of left distal lower extremity; F17.210 Nicotine dependence, cigarettes, uncomplicated; M77.32 Calcaneal spur, left foot; Z79.4 Long term (current) use of insulin; Z89.412 Acquired absence of left great toe; Z89.422 Acquired absence of other left toe(s)
CPT/HCPCS: 36415; 80053; 84145; 85652; 87040; 93971; 96365; 99285; 73630; 83605; 85025; 86140; 99284; J0744

== ENCOUNTER 2023-08-08 12:48 | Emergency (ER) | payer BC, MEDICAID, SELFPAY ==
[2023-08-08 12:51] VITALS: BP 116/87; PULSE 100; RESP 18; TEMP 36.8; O2SAT 98
--- NOTE | 2023-08-08 13:31 | W.ED.GENAD ---
Discharge Plan Disposition Patient Disposition: Home Condition: Good Discharge Details Clinical Impression: Infection of toe Primary Care Provider: CARLY PADGETT ED Provider: Angelika Villar Home Meds and New Rx's Prescriptions: No Action metoclopramide HCl [Reglan] 10 mg tablet 10 mg PO Q6H 30 Days Qty: 120 5RF Rx Instructions: take 30 minutes before meals and at bedtime omeprazole 40 mg capsule,delayed release(DR/EC) 40 mg PO DAILY Qty: 30 5RF magnesium chloride 64 mg tablet,delayed release (DR/EC) 64 mg PO DAILY PRN Rx Instructions: during times of gastroparesis, n/v gabapentin 300 mg Tablet 300 - 900 mg PO DIRECTED Rx Instructions: 300 qam 900 hs insulin glargine [Lantus Solostar U-100 Insulin] 100 unit/mL (3 mL) insulin pen 40 unit SUBCUT HS Patient Comments: INJECT 40 UNITS SUBCUTANEOUSLY AT BEDTIME insulin aspart U-100 [Novolog FlexPen U-100 Insulin] 100 unit/mL (3 mL) insulin pen See Rx Instructions SUBCUT TID Patient Comments: adjusted to carbs and pre-meal BS, up to 8u SUBCUTANEOUSLY THREE TIMES DAILY WITH MEALS Rx Instructions: subcutaneously three times a day; lidocaine [Lidoderm] 5 % adhesive patch,medicated 1 patch topical DIRECTED Patient Comments: PLACE 1 PATCH ONTO THE SKIN DAILY. PATCHE(S) MAY REMAIN IN PLACE FOR UP TO 12 HOURS IN ANY 24-HOUR PERIOD nicotine 7 mg/24 hr patch 24 hour 1 patch topical DAILY Patient Comments: APPLY 1 PATCH DAILY TOPICALLY TO SKIN WITHOUT HAIR. APPLY TO A DIFFERENT SITE AT THE SAME TIME EACH DAY, AFTER COMPLETION OF 14MG PATCHES duloxetine 40 mg capsule,delayed release(DR/EC) 40 mg PO DAILY Patient Comments: TAKE 1 CAPSULE BY MOUTH ONCE DAILY (DME) Dexcom G6 Sensor Device See Rx Instructions .Route Qty: 6 0RF Rx Instructions: As directed Jardiance 10 mg Tablet 10 mg PO DAILY Qty: 30 0RF tramadol 50 mg Tablet 50 mg PO Q6H PRN PRNQty: 30 0RF ondansetron 4 mg tablet,disintegrating 4 mg PO Q6H PRNQty: 60 0RF ciprofloxacin HCl [Cipro] 500 mg tablet 500 mg PO BID 14 Days Qty: 28 0RF Januvia 25 mg tablet 25 mg PO DAILY Discharge Instructions Additional Instructions: Follow-up as scheduled with your supervisor [employer] on for reassessment. You may stop taking the blood thinners, there was no sign of blood clot on ultrasound Continue taking your antibiotics as prescribed. Continue with good wound care and elevation as discussed. Keep good control of your blood sugars and follow up with your diabetes care team for management of your blood sugars. Return to emergency care if you develop new fever/chills, body aches, worsening swelling/redness/pain, pus drainage, or if you are very worried and need to be rechecked again immediately HPI General Date/Time Provider Initiated Documentation: 08/08/23 13:12. HPI Narrative: Cristy is a 38-year-old female with history of T2DM who presents to the emergency department for re-evaluation of the left foot infection. She reports he started with redness and swelling on Tuesday to the distal L foot, was seen in the emergency department and there was concern for possible blood clot as well as infection. She was started on blood thinners and antibiotics, came in today for ultrasound. She reports that she has been elevating her foot over the weekend, has had reduced pain and swelling in the foot. Ultrasound was negative for thrombus. She denies fever/chills, generalized malaise, increasing drainage from wound. She does have scant yellow drainage and occasional blood according to her partner. She has been keeping her blood sugars well-controlled, in the mid 100s controlled with sliding scale insulin. She has had amputation of her first and second toes, as well as half of her third toe. She is followed by podiatry in [facility] Related Data Home Medications Medication Instructions Recorded Confirmed gabapentin 300 mg tablet 300 - 900 mg PO DIRECTED 01/24/21 08/06/23 insulin glargine 100 unit/mL (3 40 unit subcut HS 01/14/22 08/06/23 mL) subcutaneous pen (Lantus Solostar U-100 Insulin) blood-glucose sensor (Dexcom G6 #6 ea 05/03/22 08/06/23 Sensor device) lidocaine 5 % topical patch 1 patch topical DIRECTED 05/25/22 08/06/23 (Lidoderm) nicotine 7 mg/24 hr daily 1 patch topical DAILY 05/25/22 08/06/23 transdermal patch empagliflozin 10 mg tablet 10 mg PO DAILY #30 tabs 03/25/23 03/02/24 (Jardiance) tramadol 50 mg tablet 50 mg PO Q6H PRN PRN #30 tabs 08/28/22 08/06/23 metoclopramide HCl 10 mg tablet 10 mg PO Q6H 30 days #120 tabs 11/09/22 08/06/23 (Reglan) omeprazole 40 mg capsule,delayed 40 mg PO DAILY #30 caps 11/09/22 08/06/23 release ondansetron 4 mg disintegrating 4 mg PO Q6H PRN #60 tabs 02/20/23 08/06/23 tablet insulin aspart U-100 100 unit/mL See Rx Instructions subcut TID 04/14/23 08/06/23 (3 mL) subcutaneous pen (Novolog FlexPen U-100 Insulin aspart) magnesium chloride 64 mg 64 mg PO DAILY PRN 04/14/23 08/06/23 (magnesium chloride) tablet,delayed release duloxetine 40 mg capsule,delayed 40 mg PO DAILY 05/24/23 08/06/23 release ciprofloxacin HCl 500 mg tablet 500 mg PO BID 14 days #28 tabs 08/06/23 (Cipro) sitagliptin phosphate 25 mg tablet 25 mg PO DAILY 08/06/23 08/06/23 (Januvia) Previous Rx's Medication Instructions Recorded blood-glucose sensor ([employer] G6 #6 ea 05/03/22 Sensor device) empagliflozin 10 mg tablet 10 mg PO DAILY #30 tabs 08/28/22 (Jardiance) tramadol 50 mg tablet 50 mg PO Q6H PRN PRN #30 tabs 08/28/22 metoclopramide HCl 10 mg tablet 10 mg PO Q6H 30 days #120 tabs 11/09/22 (Reglan) omeprazole 40 mg capsule,delayed 40 mg PO DAILY #30 caps 11/09/22 release ondansetron 4 mg disintegrating 4 mg PO Q6H PRN #60 tabs 02/20/23 tablet ciprofloxacin HCl 500 mg tablet 500 mg PO BID 14 days #28 tabs 08/06/23 (Cipro) Allergies Allergy/AdvReac Type Severity Reaction Status Date / Time ibuprofen [From Advil] Allergy Severe throat Verified 08/06/23 07:27 closes pomegranate Allergy Severe Anaphylaxis Verified 08/06/23 07:27 citalopram AdvReac Severe Bodily harm Verified 08/06/23 07:27 General Stated Complaint: Cellulitis ARNOLD: 3 Review of Systems Narrative: see HPI Exam Const General: cooperative, healthy appearing, comfortable and no acute distress Resp Effort & Inspection: normal respiratory effort and able to speak in complete sentences Extrem General: full ROM Left lower extremity: foot (amputation offirst two toes plus half of third toe) Details: normal capillary refill, edema (mild) Location: of the dorsal foot and other (wound to plantar aspect of L great toe, no active drainage); no tenderness, no unusual warmth, no lacerations and no ecchymosis Course Vital Signs Vital signs: Vital Signs Temperature 36.8 C 08/08/23 12:51 Pulse 100 H 08/08/23 12:51 Respiratory Rate 18 08/08/23 12:51 Blood Pressure 116/87 08/08/23 12:51 Pulse Oximetry 98 08/08/23 12:51 Temperature 36.8 C 08/08/23 12:51 Temperature Source Temporal Artery Scan 08/08/23 12:51 Pulse 100 H 08/08/23 12:51 Respiratory Rate 18 08/08/23 12:51 Respiratory Effort Normal, Non-Labored 08/08/23 12:55 Blood Pressure 116/87 08/08/23 12:51 Blood Pressure Position Sitting 08/08/23 12:51 Pulse Oximetry 98 08/08/23 12:51 Oxygen Delivery Method Room Air 08/08/23 12:51 Oxygen Flow Rate 0 08/08/23 12:51 Medical Decision Making Cristy is a 38-year-old female with history of T2DM who presents to the emergency department for re-evaluation of the left foot infection. She reports he started with redness and swelling on Tuesday to the distal L foot, was seen in the emergency department and there was concern for possible blood clot as well as infection. She was started on blood thinners and antibiotics, came in today for ultrasound. She reports that she has been elevating her foot over the weekend, has had reduced pain and swelling in the foot. Ultrasound was negative for thrombus. She denies fever/chills, generalized malaise, increasing drainage from wound. She does have scant yellow drainage and occasional blood according to her partner. She has been keeping her blood sugars well-controlled, in the mid 100s controlled with sliding scale insulin. She has had amputation of her first and second toes, as well as half of her third toe. She is followed by podiatry in [facility] Physical exam very reassuring. Patient is alert and interactive, well-appearing. Mild swelling noted to dorsum of left foot, no erythema or warmth. No tenderness to palpation. Ulceration noted on the plantar aspect of great toe, no active drainage. There is no staining on bandage that was replaced this morning. History and presentation consistent with left foot infection that is responding appropriately to treatment. No red flags concerning for treatment resistant infection or extension of infection requiring additional imaging or bloodwork at this time. Reviewed discharge instructions with patient and her partner, including results of ultrasound (negative for DVT), recommendation to continue antibiotics, follow-up with podiatry, and red flags indicate need for return to emergency care. They are agreeable with plan of care Quality:[facility] Health Related Social Needs: No Data to Display PFSH All Active Problems (Updated 08/08/23 @ 13:33 by Angelika Llanos) DVT (deep venous thrombosis) (Chronic) Cellulitis of foot, left (Acute) Corns and callosities (Acute) Leukocytosis (Acute) Hypomagnesemia (Acute) Chronic nausea (Acute) Calf pain (Acute) Cellulitis of foot (Acute) Diabetic toe ulcer (Acute) Abscess (Acute) Vomiting (Acute) Gastroparesis (Chronic) IDDM (insulin dependent diabetes mellitus) (Chronic) Tobacco abuse (Acute) Cannabinoid hyperemesis syndrome (Acute) Upper GI bleeding (Acute) UTI (urinary tract infection) (Acute) Hypokalemia (Acute) Type 2 diabetes mellitus with diabetic neuropathy (Chronic) Ulcer of other part of foot (Acute) Amputation of toe of left foot (Acute) Infection of toe (Acute) Osteomyelitis (Acute) Medical History Ulcerative esophagitis Peripheral neuropathy History of osteomyelitis IBS (irritable bowel syndrome) History of kidney stones Chest pain r/t Anxiety Back pain Cellulitis of third toe, left Type 2 diabetes mellitus History of cellulitis toe Suicide attempt Anxiety and depression Diabetic neuropathy Diabetes Type 1, per patient she said she was told she had diabetes type 2. 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 Maternal Cousin Breast cancer Maternal Cousin Breast cancer Maternal Cousin Breast cancer Social History Smoking/Tobacco Use Status: Current every day Tobacco Type: cigarettes Smoking risk assessment performed?: Yes Alcohol Intake: current Alcohol Intake frequency: holidays/special occasions only Drug use: Daily Substance use type: marijuana Details: last marijuana was last week Housing: house Do you feel safe at home: Yes Do you feel safe in your relationship?: Yes
== END 2023-08-08 13:54 | disposition home or self-care (01) ==
PROVIDERS: Emergency Provider Nurse Practitioner Family; PCP Internal Medicine
DX: L03.116 Cellulitis of left lower limb (principal); E11.40 Type 2 diabetes mellitus with diabetic neuropathy, unspecified
CPT/HCPCS: 99282; 99283

== ENCOUNTER 2023-08-11 15:42 | Outpatient (REF) | payer BC, MEDICAID, SELFPAY | END 2023-08-11 15:43 | disposition home or self-care (01) | LOC: LBN 15:42 | PROVIDERS: PCP Internal Medicine; Visit Provider Podiatrist | DX: L97.522 Non-pressure chronic ulcer of other part of left foot with fat layer exposed (principal); M86.8X8 Other osteomyelitis, other site | CPT/HCPCS: 87077; 87070; 87075; 87186; 87205 ==

== ENCOUNTER → 2023-08-15 02:37 | Outpatient (CLI) | payer BC, MEDICAID, SELFPAY ==
--- NOTE | 2023-08-15 07:30 | DI.RAD_ITS ---
Exam(s) XR FOOT LT COMPLETE EXAM: XR FOOT LT COMPLETE CLINICAL HISTORY: CELLULITIS LT FOOT, OSTEOMYELITIS,L03.116,m86.9. TECHNIQUE: 2D digital imaging was performed of the left foot. Five images were obtained. AP, obliq ue and lateral views were obtained. COMPARISON: CR,XR XR FOOT LT COMPLETE from 08/06/2023 FINDINGS: BONES: No acute fracture is present. No bony destructive lesion is seen. There is again seen an amput ation of the 1st and 2nd toes. There is also been an amputation of the distal phalanx of the 3rd toe . JOINTS: No dislocation present. SOFT TISSUE: Normal. IMPRESSION: No radiographic evidence of osteomyelitis. DATA REPOSITORY: RADIATION DOSE DELIVERED:
== END ==
PROVIDERS: PCP Internal Medicine; Visit Provider Podiatrist
DX: L03.116 Cellulitis of left lower limb
CPT/HCPCS: 73630

== ENCOUNTER 2023-08-23 00:29 | Observation (INO) | payer BC, MEDICAID, SELFPAY ==
[2023-08-23] VITALS (37 sets, daily range): BP systolic 123–197; BP diastolic 84–171; PULSE 83–145; RESP 7–27; TEMP 36.3–37.9; O2SAT 92–100
--- NOTE | 2023-08-23 | DI.US_ITS ---
Exam(s) US ABDOMEN LIMITED EXAM: US ABDOMEN LIMITED CLINICAL HISTORY: Gallblabber sludge on ABD CT TECHNIQUE: Ultrasound abdomen performed using standard protocol. COMPARISON: CT CT ABDOMEN PELVIS WO from 08/23/2023 FINDINGS: LIVER: Mildly enlarged at 18.7 cm in length. Normal echogenicity.. Normalechogenicity. No focal li skyla lesions are seen.. GALLBLADDER: No evidence of cholelithiasis. No sludge visible. No evidence of wall thickening. No p ericholecystic fluid identified. DONALDSON'S SIGN: Negative. BILIARY SYSTEM: No intrahepatic or extrahepatic biliary ductal dilation. RIGHT KIDNEY: Normal size. No evidence of renal calculi. No evidence of hydronephrosis. No suspicious renal mass. No cyst identified. PANCREAS: Normal where visualized. ABDOMINAL AORTA AND IVC: Visualized portions normal caliber. ASCITES: None seen. IMPRESSION: No evidence of gallbladder sludge. No evidence of acute cholecystitis. DATA REPOSITORY:
--- NOTE | 2023-08-23 00:30 | RT.EKG_ITS ---
APPROVED REPORT Exam: Resting ECG Reason for Exam: sob Patient Location: E HR:102 bpm ECG Measurements Heart Rate 102 AXIS VA 145 P 55 QRSd 91 QRS 7 QT 391 T -45 QTc 510 Conclusion Fast sinus arrhythmia...V-rate 80-121, mean> 99 Probable LVH with secondary repol abnrm...multiple LVH criteria I have reviewed and interpreted ECG and agree with software generated interpretation.
--- NOTE | 2023-08-23 00:30 | DI.CT_ITS ---
Exam(s) CT ABDOMEN PELVIS WO EXAM: CT ABDOMEN PELVIS WO CLINICAL HISTORY: vomiting, abdominal pain. TECHNIQUE: Imaging Protocol: Axial computed tomography images with coronal and sagittal reformatted images were created and reviewed CONTRAST MATERIAL: Intravenous: none Oral: None COMPARISON: CT CT ABDOMEN PELVIS W from 02/18/2023 FINDINGS: VISUALIZED LUNG BASES: No nodules nor pleural effusions evident. ABDOMEN: There is circumferential thickening of the lower esophagus. LIVER: There are no obvious focal hepatic lesions evident of this noninfused study. GALLBLADDER/BILIARY: Thin sludge is noted layering in the gallbladder but there are no calcified gall stones nor gallbladder wall edema. No pericholecystic fluid. CBD is not dilated. PANCREAS: No evidence of pancreatic mass nor dilatation of the pancreatic duct. SPLEEN: Spleen is not enlarged. No obvious intrasplenic lesions. ADRENALS: There are no significant adrenal masses. KIDNEYS:No cysts evident. No solid renal masses. No calculi nor hydronephrosis. . ABDOMINAL AORTA: Abdominal aorta is not enlarged. LYMPH NODES: There is no retroperitoneal nor paraaortic adenopathy. ABDOMINAL WALL: No evidence of significant anterior abdominal wall nor inguinal hernia. GI: There is no evidence of bowel obstruction, free air, nor abscess. PELVIS: LYMPH NODES: There is no intrapelvic nor inguinal adenopathy. GI: No evidence of appendicitis.No evidence of sigmoid diverticulitis. URINARY BLADDER: No calculi nor obvious masses evident REPRODUCTIVE: There has an IUD in the uterine canal. Uterus size is normal. No abnormal adnexal mas ses. No free fluid in the pelvis. No ascites. OSSEOUS: No significant osseous lesions. No fractures. Limbus vertebra again noted at the anterosuperior aspect of T12, unchanged. There is moderate disc space narrowing at L4-5 level. IMPRESSION: 1. No significant acute findings in the abdomen pelvis on this noninfused study. 2. IUD is noted to be in satisfactory position in the uterus. 3. Mild sludge noted in the gallbladder. No calcified gallstones nor evidence of acute cholecystitis nor dilatation of the biliary tree. RADIATION DOSE DELIVERED: Total DLP DATA REPOSITORY: All CT scans at this facility are submitted to the National Radiology Data Registry (NRDR) Dose Index Registry (DIR) with the [employer] ([employer]). RADIATION OPTIMIZATION: All CT scans at this facility use at least one of these dose optimization te chniques: automated exposure control; mA and/or kV adjustment per patient size (includes targeted exa ms where dose is matched to clinical indication); or iterative reconstruction.
--- NOTE | 2023-08-23 00:48 | ED.GENADUL_ITS ---
Discharge Plan Disposition Patient Disposition: Admit to [facility] Discharge Details Chief Complaint: GenMedical Clinical Impression: Vomiting, Dehydration Primary Care Provider: CARLY PADGETT ED Provider: Mervin Crowell Home Meds and New Rx's Prescriptions: No Action metoclopramide HCl [Reglan] 10 mg tablet 10 mg PO Q6H 30 Days Qty: 120 5RF Rx Instructions: take 30 minutes before meals and at bedtime omeprazole 40 mg capsule,delayed release(DR/EC) 40 mg PO DAILY Qty: 30 5RF magnesium chloride 64 mg tablet,delayed release (DR/EC) 64 mg PO DAILY PRN Rx Instructions: during times of gastroparesis, n/v ciprofloxacin HCl [Cipro] 500 mg tablet 500 mg PO BID 14 Days Qty: 28 0RF doxycycline hyclate 100 mg capsule 100 mg PO BID Qty: 28 0RF gabapentin 300 mg Tablet 300 - 900 mg PO DIRECTED Rx Instructions: 300 qam 900 hs insulin glargine [Lantus Solostar U-100 Insulin] 100 unit/mL (3 mL) insulin pen 40 unit SUBCUT HS Patient Comments: INJECT 40 UNITS SUBCUTANEOUSLY AT BEDTIME insulin aspart U-100 [Novolog FlexPen U-100 Insulin] 100 unit/mL (3 mL) insulin pen See Rx Instructions SUBCUT TID Patient Comments: adjusted to carbs and pre-meal BS, up to 8u SUBCUTANEOUSLY THREE TIMES DAILY WITH MEALS Rx Instructions: subcutaneously three times a day; lidocaine [Lidoderm] 5 % adhesive patch,medicated 1 patch topical DIRECTED Patient Comments: PLACE 1 PATCH ONTO THE SKIN DAILY. PATCHE(S) MAY REMAIN IN PLACE FOR UP TO 12 HOURS IN ANY 24-HOUR PERIOD nicotine 7 mg/24 hr patch 24 hour 1 patch topical DAILY Patient Comments: APPLY 1 PATCH DAILY TOPICALLY TO SKIN WITHOUT HAIR. APPLY TO A DIFFERENT SITE AT THE SAME TIME EACH DAY, AFTER COMPLETION OF 14MG PATCHES duloxetine 40 mg capsule,delayed release(DR/EC) 40 mg PO DAILY Patient Comments: TAKE 1 CAPSULE BY MOUTH ONCE DAILY (DME) Dexcom G6 Sensor Device See Rx Instructions .Route Qty: 6 0RF Rx Instructions: As directed Jardiance 10 mg Tablet 10 mg PO DAILY Qty: 30 0RF tramadol 50 mg Tablet 50 mg PO Q6H PRN PRNQty: 30 0RF ondansetron 4 mg tablet,disintegrating 4 mg PO Q6H PRNQty: 60 0RF Januvia 25 mg tablet 25 mg PO DAILY HPI General Date/Time Provider Initiated Documentation: 08/23/23 00:30 . HPI Narrative: 38-year-old female with a past medical history of insulin-dependent diabetes mellitus, gastroparesis, amputation of her left toe secondary to diabetes and osteomyelitis as well as multiple episodes of vomiting in the past, which they are not certain as to the reason why, presents today for evaluation of vomiting. Patient was here 2 weeks ago, she did have an infected toe and eventually followed up with podiatry not long after. She is on Cipro and doxycycline and just finishing that prescription at this time. Significant other is at bedside and he states that yesterday the patient began vomiting, she has had 3 to 5 gallons of vomitus over the last 24 hours. She has not been able to keep anything down. The patient significant other is color blind, but states that he thinks he might of seen something that looked like red in the vomitus. Patient states that I feel achy all over, but denies any other complaints. No new medications or changes otherwise. No trauma. No other modifying factors. Patient does not add anything else to the history at this time. Related Data Home Medications Medication Instructions Recorded Confirmed gabapentin 300 mg tablet 300 - 900 mg PO DIRECTED 01/24/21 08/11/23 insulin glargine 100 unit/mL (3 40 unit subcut HS 01/14/22 08/11/23 mL) subcutaneous pen (Lantus Solostar U-100 Insulin) blood-glucose sensor ([employer] G6 #6 ea 05/03/22 08/11/23 Sensor device) lidocaine 5 % topical patch 1 patch topical DIRECTED 05/25/22 08/11/23 (Lidoderm) nicotine 7 mg/24 hr daily 1 patch topical DAILY 05/25/22 08/11/23 transdermal patch empagliflozin 10 mg tablet 10 mg PO DAILY #30 tabs 08/28/22 08/11/23 (Jardiance) tramadol 50 mg tablet 50 mg PO Q6H PRN PRN #30 tabs 08/28/22 08/11/23 metoclopramide HCl 10 mg tablet 10 mg PO Q6H 30 days #120 tabs 11/09/22 08/11/23 (Reglan) omeprazole 40 mg capsule,delayed 40 mg PO DAILY #30 caps 11/09/22 08/11/23 release ondansetron 4 mg disintegrating 4 mg PO Q6H PRN #60 tabs 02/20/23 08/11/23 tablet insulin aspart U-100 100 unit/mL See Rx Instructions subcut TID 04/14/23 08/11/23 (3 mL) subcutaneous pen (Novolog FlexPen U-100 Insulin aspart) magnesium chloride 64 mg 64 mg PO DAILY PRN 04/14/23 08/11/23 (magnesium chloride) tablet,delayed release duloxetine 40 mg capsule,delayed 40 mg PO DAILY 05/24/23 08/11/23 release sitagliptin phosphate 25 mg tablet 25 mg PO DAILY 08/06/23 08/11/23 (Januvia) ciprofloxacin HCl 500 mg tablet 500 mg PO BID 14 days #28 tabs 08/11/23 08/11/23 (Cipro) doxycycline hyclate 100 mg capsule 100 mg PO BID #28 caps 08/11/23 08/11/23 Previous Rx's Medication Instructions Recorded blood-glucose sensor (Dexcom G6 #6 ea 05/03/22 Sensor device) empagliflozin 10 mg tablet 10 mg PO DAILY #30 tabs 08/28/22 (Jardiance) tramadol 50 mg tablet 50 mg PO Q6H PRN PRN #30 tabs 08/28/22 metoclopramide HCl 10 mg tablet 10 mg PO Q6H 30 days #120 tabs 11/09/22 (Reglan) omeprazole 40 mg capsule,delayed 40 mg PO DAILY #30 caps 11/09/22 release ondansetron 4 mg disintegrating 4 mg PO Q6H PRN #60 tabs 02/20/23 tablet ciprofloxacin HCl 500 mg tablet 500 mg PO BID 14 days #28 tabs 08/11/23 (Cipro) doxycycline hyclate 100 mg capsule 100 mg PO BID #28 caps 08/11/23 Allergies Allergy/AdvReac Type Severity Reaction Status Date / Time ibuprofen [From Advil] Allergy Severe throat Verified 08/11/23 14:02 closes pomegranate Allergy Severe Anaphylaxis Verified 08/11/23 14:02 citalopram AdvReac Severe Bodily harm Verified 08/11/23 14:02 General ARNOLD: 3 Review of Systems All systems reviewed & are unremarkable except as noted in HPI and below Exam Narrative Exam Narrative: 1.Const: Well-nourished, Well-developed, appearing stated age 2.Eyes: PERRL, no conjunctival injection, and symmetrical lids. 3.ENT: Atraumatic external nose and ears. Notably dry MM. Neck: Symmetric, trachea midline, No thyromegaly. 4.CVS: +S1/S2, No murmurs or gallops. Peripheral pulses 2+ and equal in all extremities. Brisk capillary refill in all extremities. 5.RESP: Unlabored respiratory effort. Clear to auscultation bilaterally. No wheezes rales or rhonchi 6.GI: Soft, Nontender/Nondistended, No hepatosplenomegaly. No guarding or rebound. 7.MSK: Normocephalic/Atraumatic, Extremities w/o deformity or ttp No cyanosis or clubbing, Normal movement of all extremities 8.Skin: Warm, Dry. No rashes or lesions. 9.Neuro: sheep clipper II-XII grossly intact. Sensation grossly intact, no focal neurologic deficits. 10.Psych: (AAO) x3,, however the patient is notably diminished and affect, it appears extremely weak. t Medical Decision Making 38-year-old female with a past medical history of tubal ligation insulin-dependent diabetes mellitus, gastroparesis, amputation of her left toe secondary to diabetes and osteomyelitis as well as multiple episodes of vomiting in the past, which they are not certain as to the reason why, presents today for evaluation of vomiting. Patient was here 2 weeks ago, she did have an infected toe and eventually followed up with podiatry not long after. She is on Cipro and doxycycline and just finishing that prescription at this time. Significant other is at bedside and he states that yesterday the patient began vomiting, she has had 3 to 5 gallons of vomitus over the last 24 hours. She has not been able to keep anything down. The patient significant other is color blind, but states that he thinks he might of seen something that looked like red in the vomitus. Patient states that I feel achy all over, but denies any other complaints. No new medications or changes otherwise. No trauma. No other modifying factors. Patient does not add anything else to the history at this time. Exam demonstrates extremely dry mucous membranes, patient is notably diminished and affect and energy. She responds to questions, but it is slow and slightly delayed. No evidence of focal neurologic deficits. Concern for DKA/HHNK, severe hydration or electrolyte abnormality. Will evaluate for abnormalities, give Protonix and famotidine for potential upper GI irritation or bleeding, give Zofran, rehydrate with a liter of lactated Ringer's, monitor closely and reassess. 4:26 AM Patient is feeling slightly improved after antiemetics. She was given an additional dose of Zofran and Reglan. Initial labs showed a white count of 21. CT scan was ordered and shows no evidence of acute process per virtual radiology. Electrolytes and VBG showed a metabolic alkalosis, which corresponds with the excessive vomiting. No evidence of diabetic ketoacidosis. Patient has not yet urinated. Blood sugar is 311, 10 units of subcu insulin will be administered. Blood sugar is less than 600, and symptoms appear inconsistent with HHNK initial electrolytes demonstrated stable assessment, however after 2 L of lactated Ringer's repeat assessment shows a dropped potassium to 2.9. Magnesium normal. On reassessment the patient is feeling somewhat better, but still has mild tachycardia and does still appear mildly dehydrated. With a drop in her potassium we will correct this with 20 mill equivalents of IV potassium. No need for magnesium as her magnesium level is normal. With her continued mild nausea, hypokalemia, and her previous episodes where she usually requires prompt return to the ED when discharged with still mild to moderate symptoms, I do feel that overnight observation is indicated. Will continue fluids at 150 an hour of normal saline. I contacted the hospitalist Dr. Rubi, he agrees with the assessment and plan. I have extensively reviewed the treatment plan with the patient. I have addressed all patient concerns at this time. I have also discussed the plan with the admitting physician and they agree with the current assessment and plan and have agreed to assume responsibility for the patient. All parties demonstrate verbal understanding and agreement with our assessment and plan at this time. The documentation in this chart was dictated using hereO dictation software. Please excuse any dictation errors. I will place admission orders on his behalf. FINDINGS: Liver: Normal. No mass. Gallbladder and bile ducts: Large volume gallbladder sludge. No cholecystitis or biliary ductal dilatation. Pancreas: Unremarkable. Spleen: Normal. Adrenal glands: Normal. No mass. Kidneys and ureters: Normal. No hydronephrosis. Stomach and bowel: Unremarkable. No bowel wall thickening or intestinal obstruction. Appendix: Normal appendix. Intraperitoneal space: Unremarkable. No pneumoperitoneum. No abscess. Vasculature: Unremarkable. Lymph nodes: Unremarkable. Urinary bladder: Unremarkable as visualized. Reproductive: IUD in place, appears adequately positioned. Ovaries are normal. Bones/joints: Unremarkable. No acute fracture. Soft tissues: Unremarkable. IMPRESSION: No acute findings. Thank you for allowing us to participate in the care of your patient. Dictated and Authenticated by: Irineo Vanessa MD 08/23/2023 3:05 AM Eastern Time ([place] & [place]) Quality:SDOH Health Related Social Needs: No Data to Display PFSH All Active Problems (Updated 08/23/23 @ 04:31 by Mervin Crowell DO) Dehydration (Acute) Ulcer of left foot with fat layer exposed (Acute) Osteomyelitis of left foot (Acute) DVT (deep venous thrombosis) (Chronic) Cellulitis of foot, left (Acute) Corns and callosities (Acute) Leukocytosis (Acute) Hypomagnesemia (Acute) Chronic nausea (Acute) Calf pain (Acute) Cellulitis of foot (Acute) Diabetic toe ulcer (Acute) Abscess (Acute) Vomiting (Acute) Gastroparesis (Chronic) IDDM (insulin dependent diabetes mellitus) (Chronic) Tobacco abuse (Acute) Cannabinoid hyperemesis syndrome (Acute) Upper GI bleeding (Acute) UTI (urinary tract infection) (Acute) Hypokalemia (Acute) Type 2 diabetes mellitus with diabetic neuropathy (Chronic) Ulcer of other part of foot (Acute) Amputation of toe of left foot (Acute) Infection of toe (Acute) Osteomyelitis (Acute) Medical History Ulcerative esophagitis Peripheral neuropathy History of osteomyelitis IBS (irritable bowel syndrome) History of kidney stones Chest pain r/t Anxiety Back pain Cellulitis of third toe, left Type 2 diabetes mellitus History of cellulitis toe Suicide attempt Anxiety and depression Diabetic neuropathy Diabetes Type 1, per patient she said she was told she had diabetes type 2. 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 Maternal Cousin Breast cancer Maternal Cousin Breast cancer Maternal Cousin Breast cancer Social History Smoking/Tobacco Use Status: Current every day Tobacco Type: cigarettes Smoking risk assessment performed?: Yes Alcohol Intake: current Alcohol Intake frequency: holidays/special occasions only Drug use: Daily Substance use type: marijuana Details: last marijuana was last week Housing: house Do you feel safe at home: Yes Do you feel safe in your relationship?: Yes
[2023-08-23] MEDS: Lactated Ringers 1,000 ML 1000 ML IV ×2 (00:57→02:14)
[2023-08-23] MEDS: Ondansetron 4 MG/2 ML VIAL IVP ×4 (00:57→23:42)
[2023-08-23 01:00] LABS: BE (Venous) 13 mmol/L (-2-3); HCO3 (Venous) 35 mmol/L (23-28); O2 Sat (Venous) 93 %; TCO2 (Venous) 29 mmol/L (24-29); pCO2 (Venous) 37 mmHg (41-51); pH (Venous) 7.57 (7.31-7.41); pO2 (Venous) 68 mmHg
[2023-08-23] MEDS: Pantoprazole 40 MG VIAL IVP (01:01)
[2023-08-23] MEDS: Famotidine 20 MG/2 ML VIAL IVP ×3 (01:02→21:21)
[2023-08-23 01:33] LABS: Abs Immature Grans 0.09 10^3/uL (0.0-0.06); Absolute Basophil Count 0.04 10^3/uL (0.0-0.2); Absolute Monocyte Count 1.67 10^3/uL (0.1-0.8); Basophils % 0.2; HCT 45.1 % (36.0-46.0); HGB 15.8 g/dL (11.2-15.7); Immature Grans % 0.4; Lymphocytes % 13.2; MCH 31.3 pg (27.0-33.0); MCV 89 fL (80-95); MPV 10.3 fL (8.0-11.0); Monocytes % 7.9; Neutrophils % 78.3; Platelet Count 414 10^3/uL (130-400); RBC 5.05 10^6/uL (3.93-5.22); RDW 12.7 % (11.7-14.6); RDW-SD 41.4 fL; WBC 21.09 10^3/uL (4.4-10.8)
[2023-08-23 01:38] LABS: Diff Comment Agrees w/ Instrument; RBC Morphology Normal
[2023-08-23 01:47] LABS: PTT Activated 27.6 sec (23.6-32.8); Prothrombin Time 10.3 sec (9.1-11.1)
[2023-08-23 02:01] LABS: ALT 19 U/L (14-59); AST 30 U/L (15-37); Albumin 3.8 g/dL (3.4-5.0); Alkaline Phosphatase 122 U/L (46-116); Anion Gap 10.7 mmol/L (3-11); BUN 22 mg/dL (7-18); Bilirubin, Total 0.5 mg/dL (0.2-1.0); CO2 33.3 mmol/L (21.0-32.0); CREATININE 0.9 mg/dL (0.55-1.02); Calcium 9.8 mg/dL (8.5-10.1); Chloride 95 mmol/L (98-107); Estimated GFR 83.92 (mL/min/1.73m2); Glucose 332 mg/dL (74-106); Lipase 28 U/L (16-77); Magnesium 1.8 mg/dL (1.8-2.4); Potassium 3.7 mmol/L (3.5-5.1); Sodium 139 mmol/L (136-145); TSH (W/Ref FT4) 0.88 uIU/mL (0.36-3.74); Total Protein 8.8 g/dL (6.4-8.2)
[2023-08-23 02:08] LABS: Absolute Lymphocyte Count 2.78 10^3/uL (1.2-3.4); Absolute Neutrophil Count 16.51 10^3/uL (1.2-6.7)
[2023-08-23] MEDS: Metoclopramide 10 MG/2 ML VIAL IVP (02:45)
--- NOTE | 2023-08-23 03:06 | DI.VRAD_ITS ---
PROCEDURE INFORMATION: Exam: CT Abdomen And Pelvis Without Contrast Exam date and time: 08/23/2023 2:10 AM Age: 38 years old Clinical indication: Abdominal pain; Generalized; Prior surgery; Surgery date: 6+ months; Surgery type: Tubal ligation; Patient HX: Abd pain, vomiting; Additional info: HX of ibs and gastroparesis TECHNIQUE: Imaging protocol: Computed tomography of the abdomen and pelvis without contrast. Radiation optimization: All CT scans at this facility use at least one of these dose optimization techniques: automated exposure control; mA and/or kV adjustment per patient size (includes targeted exams where dose is matched to clinical indication); or iterative reconstruction. COMPARISON: CT ABDOMEN PELVIS W 02/18/2023 3:19 PM FINDINGS: Liver: Normal. No mass. Gallbladder and bile ducts: Large volume gallbladder sludge. No cholecystitis or biliary ductal dilatation. Pancreas: Unremarkable. Spleen: Normal. Adrenal glands: Normal. No mass. Kidneys and ureters: Normal. No hydronephrosis. Stomach and bowel: Unremarkable. No bowel wall thickening or intestinal obstruction. Appendix: Normal appendix. Intraperitoneal space: Unremarkable. No pneumoperitoneum. No abscess. Vasculature: Unremarkable. Lymph nodes: Unremarkable. Urinary bladder: Unremarkable as visualized. Reproductive: IUD in place, appears adequately positioned. Ovaries are normal. Bones/joints: Unremarkable. No acute fracture. Soft tissues: Unremarkable. IMPRESSION: No acute findings. Dictated and Authenticated by: Irineo Vanessa MD. Ordering:[id number] Jeffries MD
[2023-08-23 03:55] LABS: Abs Immature Grans 0.08 10^3/uL (0.0-0.06); Absolute Basophil Count 0.02 10^3/uL (0.0-0.2); Absolute Eosinophil Count 0.02 10^3/uL (0.0-0.7); Absolute Lymphocyte Count 2.51 10^3/uL (1.2-3.4); Absolute Monocyte Count 1.38 10^3/uL (0.1-0.8); Absolute Neutrophil Count 13.69 10^3/uL (1.2-6.7); Basophils % 0.1; Eosinophils % 0.1; HCT 40.7 % (36.0-46.0); HGB 14.1 g/dL (11.2-15.7); Immature Grans % 0.5; Lymphocytes % 14.2; MCH 31.2 pg (27.0-33.0); MCHC 34.6 % (32.0-36.0); MCV 90 fL (80-95); MPV 9.8 fL (8.0-11.0); Monocytes % 7.8; Neutrophils % 77.3; Platelet Count 389 10^3/uL (130-400); RBC 4.52 10^6/uL (3.93-5.22); RDW 12.7 % (11.7-14.6); RDW-SD 41.7 fL; WBC 17.71 10^3/uL (4.4-10.8)
[2023-08-23 04:07] LABS: ALT 16 U/L (14-59); AST 12 U/L (15-37); Albumin 3.4 g/dL (3.4-5.0); Alkaline Phosphatase 107 U/L (46-116); Anion Gap 10.2 mmol/L (3-11); BUN 19 mg/dL (7-18); Bilirubin, Total 0.3 mg/dL (0.2-1.0); CO2 32.8 mmol/L (21.0-32.0); CREATININE 0.9 mg/dL (0.55-1.02); Calcium 8.7 mg/dL (8.5-10.1); Chloride 99 mmol/L (98-107); Estimated GFR 83.92 (mL/min/1.73m2); Glucose 311 mg/dL (74-106); Sodium 142 mmol/L (136-145); Total Protein 6.9 g/dL (6.4-8.2)
[2023-08-23 04:09] LABS: Potassium 2.9 mmol/L (3.5-5.1)
[2023-08-23] MEDS: POTASSIUM CHLORIDE 20 MEQ/100 ML BAG 50 MEQ IVPB ×5 (04:23→23:33)
[2023-08-23] MEDS: Normal Saline 1,000 ML 150 ML IV (04:23)
[2023-08-23 04:49] LABS: Bilirubin Negative (Negative); Blood Negative (Negative); Clarity Sl Cloudy (Clear); Glucose 500 mg/dL (Negative); Ketones >=160 mg/dL (Negative); Leukocyte Esterase Negative (Negative); Nitrite Negative (Negative); Urobilinogen 0.2 mg/dL (Up to 0.2); pH 7.5 (5-8)
[2023-08-23 04:56] LABS: Epithelial Cells Many HPF (Negative); RBC 0-2 HPF (0-2); WBC 0-2 HPF (0-5)
[2023-08-23 04:57] LABS: Bacteria Few HPF (Negative); C & S Indicated? No; Crystals Few Amorphous HPF (Negative); Mucus Negative (Negative)
--- NOTE | 2023-08-23 05:03 | NUR.NOTE ---
report called to [facility] now on med surg
--- NOTE | 2023-08-23 05:58 | HPE_ITS ---
Date of service: 08/23/23 Time of Service: 05:58 Assessment and Plan Assessment and plan (1) Dehydration: Start date: 08/23/23 Status: Acute Assessment and plan: This is a 38-year-old lady with recurrent episodes of intractable emesis and dehydration. She has improved with treatment in the ED but is still dehydrated and requiring IV repletion of potassium. Will continue monitoring lab with IV potassium repletion and magnesium as needed. Continue symptomatic treatment and IV famotidine. She will be on observation with telemetry. She is a full code. (2) Intractable nausea and vomiting: Start date: 08/23/23 Status: Acute Assessment and plan: Continue IV Reglan and Zofran with IV fluid replacement and clear fluid diet. Advance as tolerated. Patient is chronically on these medications orally at home. She does have a history of gastroparesis. (3) Gastroparesis: Status: Chronic Assessment and plan: Recurrent episodes of intractable vomiting with nausea with dehydration. She is seeing GI for this problem. This most likely is secondary to her poorly controlled diabetes. (4) Hypokalemia: Start date: 08/23/23 Status: Acute Assessment and plan: Acute volume loss with hypokalemia and metabolic alkalosis. IV potassium repletion with close monitoring of labs. (5) Diabetic foot ulcer: Start date: 08/23/23 Status: Acute Assessment and plan: Continue oral doxycycline as tolerated and follow-up as scheduled.Blood cultures will be obtained with her acute intractable nausea and vomiting though she has not had a fever, she does have an elevated WBC. Qualifiers: Diabetic foot ulcer location: toe Diabetes mellitus type: type 2 L aterality: left Non-pressure ulcer stage: limited to breakdown of skin Qualified Code(s): E11.621 - Type 2 diabetes mellitus with foot ulcer; L97.521 - Non-pressure chronic ulcer of other part of left foot limited to breakdown of skin (6) Type 2 diabetes mellitus with diabetic neuropathy: Status: Chronic Assessment and plan: Poorly controlled and chronically with peripheral neuropathy and amputations of the left foot. Consider glucometer measurements with moderate sliding scale coverage using correction insulin. Qualifiers: Diabetes mellitus custodial insulin use: with instructional facilitator use Qualified Code(s): E11.40 - Type 2 diabetes mellitus with diabetic neuropathy, unspecified; Z79.4 - shelter (current) use of insulin (7) IBS (irritable bowel syndrome): Assessment and plan: This may be at play with patient's recurrent episodes. Continue to follow-up with GI. Qualifiers: Irritable bowel syndrome type: other Qualified Code(s): K58.8 - Other irritable bowel syndrome (8) Anxiety and depression: Assessment and plan: Continue outpatient medical therapy. History of Present Illness History of Present Illness Chief Complaint: Voluminous, persistent nausea and vomiting day prior to presentation Narrative: This is a 38-year-old female patient who has recurrent episodes of intractable vomiting with fluid loss secondary to gastroparesis and uncontrolled diabetes which she acquired as an adult. She also has peripheral neuropathy with a recurrent ulcer over her left foot status post amputation of the first and second toes and part of the third toe. She has an active ulcer and is on doxycycline actively and was on ciprofloxacin in addition which does not appear on her med list. This regimen should be finishing at the end of this week. She denies any fever or chills and had sudden onset of intractable nausea and vomiting with 3 to 5 gallons of vomitus over the last 24 hours prior to presentation to the ED. did state there may have been some red vomitus but no acute testing was done. This will be done if she vomits and on her stool with patient having a history of DVT and being placed on DVT prophylaxis with enoxaparin, platelet count is normal. She is not having as much nausea and is not vomiting at this time and is now on lactated Ringer's at 150 cc an hour. She had hypokalemia with metabolic alkalosis without vomiting. She has been repleted with potassium IV and follow-up and continue to be repleted with magnesium as needed. She has a history of hypomagnesia in the past as well. These have been recurrent episodes. She is not having abdominal pain at this time and her left foot is not red or swollen. As stated she has not had any fever or chills with her new foot ulcer on the left which is over the sole aspect of the first metatarsal head. Patient is a full code. Review of Systems Narrative: 13 point review of systems otherwise unrevealing or stable. Patient is chronically obese. PFSH All Active Problems (Updated 08/23/23 @ 06:38 by Broderick Rubi) Diabetic foot ulcer (Acute) Intractable nausea and vomiting (Acute) Dehydration (Acute) Ulcer of left foot with fat layer exposed (Acute) Osteomyelitis of left foot (Acute) DVT (deep venous thrombosis) (Chronic) Cellulitis of foot, left (Acute) Corns and callosities (Acute) Leukocytosis (Acute) Hypomagnesemia (Acute) Chronic nausea (Acute) Calf pain (Acute) Cellulitis of foot (Acute) Diabetic toe ulcer (Acute) Abscess (Acute) Vomiting (Acute) Gastroparesis (Chronic) IDDM (insulin dependent diabetes mellitus) (Chronic) Tobacco abuse (Acute) Cannabinoid hyperemesis syndrome (Acute) Upper GI bleeding (Acute) UTI (urinary tract infection) (Acute) Hypokalemia (Acute) Type 2 diabetes mellitus with diabetic neuropathy (Chronic) Ulcer of other part of foot (Acute) Amputation of toe of left foot (Acute) Infection of toe (Acute) Osteomyelitis (Acute) Medical History Ulcerative esophagitis Peripheral neuropathy History of osteomyelitis IBS (irritable bowel syndrome) History of kidney stones Chest pain r/t Anxiety Back pain Cellulitis of third toe, left Type 2 diabetes mellitus History of cellulitis toe Suicide attempt Anxiety and depression Diabetic neuropathy Diabetes Type 1, per patient she said she was told she had diabetes type 2. 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 Maternal Cousin Breast cancer Maternal Cousin Breast cancer Maternal Cousin Breast cancer Social History Smoking/Tobacco Use Status: Current every day Tobacco Type: cigarettes Smoking risk assessment performed?: Yes Alcohol Intake: current Alcohol Intake frequency: holidays/special occasions only Drug use: Daily Substance use type: marijuana Details: last marijuana was last week Housing: house Do you feel safe at home: Yes Do you feel safe in your relationship?: Yes Meds Allergies and Home Medications Allergies Allergy/AdvReac Type Severity Reaction Status Date / Time ibuprofen [From Advil] Allergy Severe throat Verified 08/11/23 14:02 closes pomegranate Allergy Severe Anaphylaxis Verified 08/11/23 14:02 citalopram AdvReac Severe Bodily harm Verified 08/11/23 14:02 Home Medications Medication Instructions Recorded Confirmed Type gabapentin 300 mg tablet 300 - 900 mg PO DIRECTED 01/24/21 08/23/23 History insulin glargine 100 unit/mL (3 40 unit subcut HS 01/14/22 08/23/23 History mL) subcutaneous pen (Lantus Solostar U-100 Insulin) blood-glucose sensor (Dexcom G6 #6 ea 05/03/22 08/23/23 Rx Sensor device) lidocaine 5 % topical patch 1 patch topical DIRECTED 05/25/22 08/23/23 History (Lidoderm) empagliflozin 10 mg tablet 10 mg PO DAILY #30 tabs 08/28/22 08/23/23 Rx (Jardiance) tramadol 50 mg tablet 50 mg PO Q6H PRN PRN #30 tabs 08/28/22 08/23/23 Rx metoclopramide HCl 10 mg tablet 10 mg PO Q6H 30 days #120 tabs 11/09/22 08/23/23 Rx (Reglan) omeprazole 40 mg capsule,delayed 40 mg PO DAILY #30 caps 11/09/22 08/23/23 Rx release ondansetron 4 mg disintegrating 4 mg PO Q6H PRN #60 tabs 02/20/23 08/23/23 Rx tablet insulin aspart U-100 100 unit/mL See Rx Instructions subcut TID 04/14/23 08/23/23 History (3 mL) subcutaneous pen (Novolog FlexPen U-100 Insulin aspart) duloxetine 40 mg capsule,delayed 40 mg PO DAILY 05/24/23 08/23/23 History release sitagliptin phosphate 25 mg tablet 25 mg PO DAILY 08/06/23 08/23/23 History (Januvia) doxycycline hyclate 100 mg capsule 100 mg PO BID #28 caps 08/11/23 08/23/23 Rx Exam Narrative Exam Narrative: General: Patient is moderately obese, alert and oriented x 3 and in no acute distress. She is lying comfortably in bed asleep at the time I approached her for her exam. HEENT: Normocephalic, eyes with pupils equal and reactive light symmetrically, extraocular movement intact and sclera anicteric. Oropharynx with dry mucosa. Neck: Supple without JVD. Back: Stooped posture without CVA tenderness. Lungs: Clear to auscultation percussion with no focalizing rales or rhonchi. No expiratory wheeze. Fair aeration. Breast: Exam deferred. Heart: Tachycardic rate with normal rhythm. No murmurs or gallops appreciated. Abdomen: Obese contour, soft and nontender to palpation of the epigastrium no guarding or rebound. Bowel sounds are active in all quadrants but decreased. No palpable hepatosplenomegaly. Genitalia/rectal: Exam deferred. Extremities: No clubbing, cyanosis or pitting edema. Left foot reveals amputation of the first and second toe at the metatarsal head and partial amputation of left toe. There is a 2 cm dry ulcer through the dermis over the plantar surface of the first metatarsal head. Fair capillary refill. Skin: Normal color, warm and dry. Neuro: Cranial nerves II through XII grossly intact. No focalizing motor deficits. Decreased sensation lower extremities bilaterally, no tremor. Psych: Flattened affect with depressed mood, no normal thought processes. Remote and recent memory intact. Results Imaging Imaging Studies: Exam: CT Abdomen And Pelvis Without Contrast Exam date and time: 08/23/2023 2:10 AM Age: 38 years old Clinical indication: Abdominal pain; Generalized; Prior surgery; Surgery date: 6+ months; Surgery type: Tubal ligation; Patient HX: Abd pain, vomiting; Additional info: HX of ibs and gastroparesis TECHNIQUE: Imaging protocol: Computed tomography of the abdomen and pelvis without contrast. Radiation optimization: All CT scans at this facility use at least one of these dose optimization techniques: automated exposure control; mA and/or kV adjustment per patient size (includes targeted exams where dose is matched to clinical indication); or iterative reconstruction. COMPARISON: CT ABDOMEN PELVIS W 02/18/2023 3:19 PM FINDINGS: Liver: Normal. No mass. Gallbladder and bile ducts: Large volume gallbladder sludge. No cholecystitis or biliary ductal dilatation. Pancreas: Unremarkable. Spleen: Normal. Adrenal glands: Normal. No mass. Kidneys and ureters: Normal. No hydronephrosis. Stomach and bowel: Unremarkable. No bowel wall thickening or intestinal obstruction. Appendix: Normal appendix. Intraperitoneal space: Unremarkable. No pneumoperitoneum. No abscess. Vasculature: Unremarkable. Lymph nodes: Unremarkable. Urinary bladder: Unremarkable as visualized. Reproductive: IUD in place, appears adequately positioned. Ovaries are normal. Bones/joints: Unremarkable. No acute fracture. Soft tissues: Unremarkable. IMPRESSION: No acute findings. Labs 08/23/23 03:45 08/23/23 03:45 Labs: Laboratory Results - last 24 hr 08/23/23 08/23/23 08/23/23 00:55 01:24 03:45 WBC Cancelled 21.09 H 17.71 H RBC Cancelled 5.05 4.52 Hgb Cancelled 15.8 H 14.1 Hct Cancelled 45.1 40.7 MCV Cancelled 89 90 MCH Cancelled 31.3 31.2 MCHC Cancelled 35.0 34.6 RDW Cancelled 12.7 12.7 Plt Count Cancelled 414 H 389 MPV Cancelled 10.3 9.8 Immature Gran % Cancelled 0.4 0.5 Neutrophils % Cancelled 78.3 77.3 Band Neutrophils % Cancelled Lymphocytes % Cancelled 13.2 14.2 Atypical Lymphs % Cancelled Monocytes % Cancelled 7.9 7.8 Eosinophils % Cancelled 0.0 0.1 Basophils % Cancelled 0.2 0.1 Metamyelocytes % Cancelled Myelocytes % Cancelled Promyelocytes % Cancelled Other Cells % Cancelled Nucleated RBC % Cancelled 0.0 0.0 Absolute Neutrophils Cancelled 16.51 H 13.69 H Absolute Lymphocytes Cancelled 2.78 2.51 Absolute Monocytes Cancelled 1.67 H 1.38 H Absolute Eosinophils Cancelled 0.00 0.02 Absolute Basophils Cancelled 0.04 0.02 RBC Morphology Cancelled Normal Polychromasia Cancelled Hypochromasia Cancelled Poikilocytosis Cancelled Basophilic Stippling Cancelled Anisocytosis Cancelled Microcytosis Cancelled Macrocytosis Cancelled Spherocytes Cancelled Tear Drop Cells Cancelled Ovalocytes Cancelled Stomatocytes Cancelled [place] Bodies Cancelled Tena Cells/Echinocytes Cancelled Acanthocytes (Spur) Cancelled Schistocytes Cancelled PT Cancelled 10.3 INR Cancelled 1.0 APTT Cancelled 27.6 VBG pH 7.57 H VBG pCO2 37 L VBG pO2 68 VBG HCO3 35 H VBG Total CO2 29 VBG O2 Saturation 93 VBG Base Excess 13 H Sodium Cancelled 139 142 Potassium Cancelled 3.7 2.9 L* Chloride Cancelled 95 L 99 Carbon Dioxide Cancelled 33.3 H 32.8 H Anion Gap Cancelled 10.7 10.2 BUN Cancelled 22 H 19 H Creatinine Cancelled 0.9 0.9 Est GFR (CKD-EPI 2020) Cancelled 83.92 83.92 Glucose Cancelled 332 H 311 H Calcium Cancelled 9.8 8.7 Magnesium Cancelled 1.8 Total Bilirubin Cancelled 0.5 0.3 AST Cancelled 30 12 L ALT Cancelled 19 16 Alkaline Phosphatase Cancelled 122 H 107 Total Protein Cancelled 8.8 H 6.9 Albumin Cancelled 3.8 3.4 Lipase Cancelled 28 TSH Cancelled 0.88 Urine Color Urine Clarity Urine pH Ur Specific [place] Urine Protein Urine Ketones Urine Blood Urine Nitrite Urine Bilirubin Urine Urobilinogen Ur Leukocyte Esterase Urine RBC Urine WBC Ur Epithelial Cells Urine Crystals Urine Bacteria Urine Mucus Ur Culture Indicated? Urine Glucose 08/23/23 04:43 WBC RBC Hgb Hct MCV MCH MCHC RDW Plt Count MPV Immature Gran % Neutrophils % Band Neutrophils % Lymphocytes % Atypical Lymphs % Monocytes % Eosinophils % Basophils % Metamyelocytes % Myelocytes % Promyelocytes % Other Cells % Nucleated RBC % Absolute Neutrophils Absolute Lymphocytes Absolute Monocytes Absolute Eosinophils Absolute Basophils RBC Morphology Polychromasia Hypochromasia Poikilocytosis Basophilic Stippling Anisocytosis Microcytosis Macrocytosis Spherocytes Tear Drop Cells Ovalocytes Stomatocytes [place] Bodies [place] Cells/Echinocytes Acanthocytes (Spur) Schistocytes PT INR APTT VBG pH VBG pCO2 VBG pO2 VBG HCO3 VBG Total CO2 VBG O2 Saturation VBG Base Excess Sodium Potassium Chloride Carbon Dioxide Anion Gap BUN Creatinine Est GFR (CKD-EPI 2020) Glucose Calcium Magnesium Total Bilirubin AST ALT Alkaline Phosphatase Total Protein Albumin Lipase TSH Urine Color Yellow Urine Clarity Sl Cloudy Urine pH 7.5 Ur Specific [place] 1.020 Urine Protein 30 H Urine Ketones >=160 H Urine Blood Negative Urine Nitrite Negative Urine Bilirubin Negative Urine Urobilinogen 0.2 Ur Leukocyte Esterase Negative Urine RBC 0-2 Urine WBC 0-2 Ur Epithelial Cells Many Urine Crystals Few Amorphous Urine Bacteria Few Urine Mucus Negative Ur Culture Indicated? No Urine Glucose 500 H Last Vital Signs Temp 37.9 C H 08/23/23 05:44 Pulse 100 H 08/23/23 05:44 Resp 18 03/19/24 05:44 BP 137/90 08/23/23 05:44 Pulse Ox 99 08/23/23 05:44 Time Spent Time spent with Patient: >75 minutes Time was spent: preparing to see the patient(eg.review tests), obtaining and/or reviewing separately otained hiistory, ordering medications,tests, procedures, referring, communicating with other health ostomy care nurse, indepentently interpreting results and counseling the patient
[2023-08-23 07:40] LABS: Anion Gap 12.1 mmol/L (3-11); BUN 18 mg/dL (7-18); CO2 31.9 mmol/L (21.0-32.0); CREATININE 0.8 mg/dL (0.55-1.02); Chloride 99 mmol/L (98-107); Estimated GFR 96.66 (mL/min/1.73m2); Glucose 283 mg/dL (74-106); Magnesium 1.6 mg/dL (1.8-2.4); Potassium 3.1 mmol/L (3.5-5.1); Sodium 143 mmol/L (136-145)
[2023-08-23] MEDS: Lidocaine 5% Patch 1 PATCH TP (08:06)
[2023-08-23] MEDS: Insulin Aspart 300 UNITS/3 ML PEN SC ×4 (08:07→23:36)
[2023-08-23] MEDS: Normal Saline Flush 10 ML SYR IVP ×4 (08:07→23:42)
[2023-08-23] MEDS: Doxycycline Hyclate 100 MG CAP PO ×2 (08:08→21:20)
[2023-08-23] MEDS: Gabapentin 300 MG CAP PO (08:08)
[2023-08-23] MEDS: Enoxaparin 40 MG/0.4 ML SYR SC (08:08)
[2023-08-23] MEDS: DULoxetine 20 MG CAP 40 MG PO (08:08)
--- NOTE | 2023-08-23 10:39 | PDOC.CMIN ---
Date of service: 08/23/23 Time of Service: 10:40 Care Management Initial Assmt Initial Assessment REASON FOR HOSPITALIZATION:: dehydration PREVIOUS FUNCTIONAL STATUS/SOCIAL/FAMILY SUPPORTS:: Cristy lives in a large single family home in [place], [place] with her Fermin, 3 children and her [id number]. 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 She is independent at baseline and does not receive any community services. CURRENT FUNCTIONAL STATUS:: Stella was sitting up in bed when CM met with her. She was pleasant and engaged easily with CM. 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 Her middle child is her 's biological child. Stella shared that except for her diabetes and gastroparesis, she is generally in good health. She is feeling somewhat better now and is able to tolerate a clear liquid diet. Stella denied the need for any new services at discharge. ADVANCE DIRECTIVES:: none Has patient been provided with info about the portal/API?: Yes Did the patient sign up for the portal?: No CODE STATUS:: Full Code INSURANCE COVERAGE / FINANCIAL ISSUES:: BC/BS out of state CURRENT HOME/COMMUNITY SERVICES/EQUIPMENT:: none PRIMARY CARE PHYSICIAN:: Carrington Calderon POTENTIAL DISCHARGE NEEDS:: follow up with PCP and 0plan of care PATIENT/FAMILY EDUCATION NEEDS:: Review of discharge instructions, activity, limitations, follow up plan, discuss [employer] TRANSPORTATION:: via private vehicle with family PLAN:: Anticipate Cristy will be discharged home with no new services. She will follow up with her PCP and plan of care and transport with family. CM will follow and continue to assess for discharge needs. PFSH All Active Problems (Updated 08/23/23 @ 15:28 by Cynthia Case APRN) Abnormal CT of the abdomen (Acute) Gallbladder sludge (Acute) Diabetic foot ulcer (Acute) Intractable nausea and vomiting (Acute) Dehydration (Acute) Ulcer of left foot with fat layer exposed (Acute) Osteomyelitis of left foot (Acute) DVT (deep venous thrombosis) (Chronic) Cellulitis of foot, left (Acute) Corns and callosities (Acute) Leukocytosis (Acute) Hypomagnesemia (Acute) Chronic nausea (Acute) Calf pain (Acute) Cellulitis of foot (Acute) Diabetic toe ulcer (Acute) Abscess (Acute) Vomiting (Acute) Gastroparesis (Chronic) IDDM (insulin dependent diabetes mellitus) (Chronic) Tobacco abuse (Acute) Cannabinoid hyperemesis syndrome (Acute) Upper GI bleeding (Acute) UTI (urinary tract infection) (Acute) Hypokalemia (Acute) Type 2 diabetes mellitus with diabetic neuropathy (Chronic) Ulcer of other part of foot (Acute) Amputation of toe of left foot (Acute) Infection of toe (Acute) Osteomyelitis (Acute) Medical History Ulcerative esophagitis Peripheral neuropathy History of osteomyelitis IBS (irritable bowel syndrome) History of kidney stones Chest pain r/t Anxiety Back pain Cellulitis of third toe, left Type 2 diabetes mellitus History of cellulitis toe Suicide attempt Anxiety and depression Diabetic neuropathy Diabetes Type 1, per patient she said she was told she had diabetes type 2. 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 Maternal Cousin Breast cancer Maternal Cousin Breast cancer Maternal Cousin Breast cancer Social History Smoking/Tobacco Use Status: Current every day Tobacco Type: cigarettes Smoking risk assessment performed?: Yes Alcohol Intake: current Alcohol Intake frequency: holidays/special occasions only Drug use: Daily Substance use type: marijuana Details: last marijuana was last week Housing: house Do you feel safe at home: Yes Do you feel safe in your relationship?: Yes SDOH(Care Management) Screening Will the Patient Participate in the Screening?: Yes Do you worry about having a steady place to live?: no In the past 12 months, have you had to go without electric, gas, oil or water in your home?: no Have you or anyone in your house had to go without enough food to eat?: no Has lack of transportation kept you from medical appointments or from doing things needed for daily living?: no Has anyone in your support network made you feel unsafe for any reason?: no
[2023-08-23 13:19] LABS: Anion Gap 11.2 mmol/L (3-11); BUN 15 mg/dL (7-18); CO2 28.8 mmol/L (21.0-32.0); Calcium 8.3 mg/dL (8.5-10.1); Chloride 96 mmol/L (98-107); Estimated GFR 73.95 (mL/min/1.73m2); Glucose 250 mg/dL (74-106); Magnesium 1.6 mg/dL (1.8-2.4); Sodium 136 mmol/L (136-145)
[2023-08-23 13:23] LABS: Potassium 2.8 mmol/L (3.5-5.1)
--- NOTE | 2023-08-23 13:57 | W.PM.PROGNOT ---
Date of Service Date of service: 08/23/23 Time of Service: 15:27 Assessment and Plan Assessment and plan (1) Intractable nausea and vomiting: Status: Acute Assessment and plan: Suspecting gastroparesis on scheduled reglan at home with question of QT prolongation; QTC 0.36 today, will reschedule AC as there is no mechanical obstruction on CT Patient reports having had a diagnosis of gastroparesis but no gastric emptying or scintigraphic gastric emptying to be found Considering the addition of erythromycin with results LFT's pending (2) Abnormal CT of the abdomen: Status: Acute Assessment and plan: The abdominal CT showed gallbladder sludge in the setting of leukocytosis, and low grade fever Limited US abd Considering surgery consult (3) Diabetic foot ulcer: Status: Acute Assessment and plan: On doxycycline oral as per podiatry WBC > 17 on arrival MRI ordered Podiatry consulted Qualifiers: Diabetic foot ulcer location: toe Diabetes mellitus type: type 2 Laterality: left Non-pressure ulcer stage: limited to breakdown of skin Qualified Code(s): E11.621 - Type 2 diabetes mellitus with foot ulcer; L97.521 - Non-pressure chronic ulcer of other part of left foot limited to breakdown of skin (4) Leukocytosis: Status: Acute Assessment and plan: As above procalcitonin added to labs Blood cultures pending CBC in AM Qualifiers: Leukocytosis type: other Qualified Code(s): D72.828 - Other elevated white blood cell count Subjective Subjective Patient reports: pain is less, tolerating liquids well, flatus, no bowel movement, nausea and other (night sweats); denies tolerating a regular diet, diarrhea, vomiting, shortness of breath or fever Exam Resp Effort & Inspection: normal respiratory effort and able to speak in complete sentences Cardio Jugular venous pressure: JVD present Palpation: normal PMI Rate: tachycardic (ST 104 on tele QTC 0.36) Rhythm: regular rhythm Heart Sounds: S1 normal and S2 normal GI Inspection: no edema and large pannus Palpation: soft, no hepatosplenomegaly and tender in the RUQ (right lower epigastric area ) Auscultation: hypoactive bowel sounds Objective Last Vital Signs Temp 37.6 C H 08/23/23 10:49 Pulse 104 H 08/23/23 10:49 Resp 17 08/23/23 10:49 BP 136/87 08/23/23 10:49 Pulse Ox 99 08/23/23 10:49 Laboratory Results - last 24 hr 08/23/23 08/23/23 08/23/23 00:55 01:24 03:45 WBC Cancelled 21.09 H 17.71 H RBC Cancelled 5.05 4.52 Hgb Cancelled 15.8 H 14.1 Hct Cancelled 45.1 40.7 MCV Cancelled 89 90 MCH Cancelled 31.3 31.2 MCHC Cancelled 35.0 34.6 RDW Cancelled 12.7 12.7 Plt Count Cancelled 414 H 389 MPV Cancelled 10.3 9.8 Immature Gran % Cancelled 0.4 0.5 Neutrophils % Cancelled 78.3 77.3 Band Neutrophils % Cancelled Lymphocytes % Cancelled 13.2 14.2 Atypical Lymphs % Cancelled Monocytes % Cancelled 7.9 7.8 Eosinophils % Cancelled 0.0 0.1 Basophils % Cancelled 0.2 0.1 Metamyelocytes % Cancelled Myelocytes % Cancelled Promyelocytes % Cancelled Other Cells % Cancelled Nucleated RBC % Cancelled 0.0 0.0 Absolute Neutrophils Cancelled 16.51 H 13.69 H Absolute Lymphocytes Cancelled 2.78 2.51 Absolute Monocytes Cancelled 1.67 H 1.38 H Absolute Eosinophils Cancelled 0.00 0.02 Absolute Basophils Cancelled 0.04 0.02 RBC Morphology Cancelled Normal Polychromasia Cancelled Hypochromasia Cancelled Poikilocytosis Cancelled Basophilic Stippling Cancelled Anisocytosis Cancelled Microcytosis Cancelled Macrocytosis Cancelled Spherocytes Cancelled Tear Drop Cells Cancelled Ovalocytes Cancelled Stomatocytes Cancelled [place] Bodies Cancelled [place] Cells/Echinocytes Cancelled Acanthocytes (Spur) Cancelled Schistocytes Cancelled PT Cancelled 10.3 INR Cancelled 1.0 APTT Cancelled 27.6 VBG pH 7.57 H VBG pCO2 37 L VBG pO2 68 VBG HCO3 35 H VBG Total CO2 29 VBG O2 Saturation 93 VBG Base Excess 13 H Sodium Cancelled 139 142 Potassium Cancelled 3.7 2.9 L* Chloride Cancelled 95 L 99 Carbon Dioxide Cancelled 33.3 H 32.8 H Anion Gap Cancelled 10.7 10.2 BUN Cancelled 22 H 19 H Creatinine Cancelled 0.9 0.9 Est GFR (CKD-EPI 2020) Cancelled 83.92 83.92 Glucose Cancelled 332 H 311 H Calcium Cancelled 9.8 8.7 Magnesium Cancelled 1.8 Total Bilirubin Cancelled 0.5 0.3 AST Cancelled 30 12 L ALT Cancelled 19 16 Alkaline Phosphatase Cancelled 122 H 107 Total Protein Cancelled 8.8 H 6.9 Albumin Cancelled 3.8 3.4 Lipase Cancelled 28 TSH Cancelled 0.88 Urine Color Urine Clarity Urine pH Ur Specific [place] Urine Protein Urine Ketones Urine Blood Urine Nitrite Urine Bilirubin Urine Urobilinogen Ur Leukocyte Esterase Urine RBC Urine WBC Ur Epithelial Cells Urine Crystals Urine Bacteria Urine Mucus Ur Culture Indicated? Urine Glucose 08/23/23 08/23/23 08/23/23 04:43 06:05 06:55 WBC RBC Hgb Hct MCV MCH MCHC RDW Plt Count MPV Immature Gran % Neutrophils % Band Neutrophils % Lymphocytes % Atypical Lymphs % Monocytes % Eosinophils % Basophils % Metamyelocytes % Myelocytes % Promyelocytes % Other Cells % Nucleated RBC % Absolute Neutrophils Absolute Lymphocytes Absolute Monocytes Absolute Eosinophils Absolute Basophils RBC Morphology Polychromasia Hypochromasia Poikilocytosis Basophilic Stippling Anisocytosis Microcytosis Macrocytosis Spherocytes Tear Drop Cells Ovalocytes Stomatocytes [place] Bodies Tena Cells/Echinocytes Acanthocytes (Spur) Schistocytes PT INR APTT VBG pH VBG pCO2 VBG pO2 VBG HCO3 VBG Total CO2 VBG O2 Saturation VBG Base Excess Sodium 143 Potassium 3.1 L Chloride 99 Carbon Dioxide 31.9 Anion Gap 12.1 H BUN 18 Creatinine 0.8 Est GFR (CKD-EPI 2020) 96.66 Glucose 283 H Calcium 9.0 Magnesium Cancelled 1.6 L Total Bilirubin AST ALT Alkaline Phosphatase Total Protein Albumin Lipase TSH Urine Color Yellow Urine Clarity Sl Cloudy Urine pH 7.5 Ur Specific [place] 1.020 Urine Protein 30 H Urine Ketones >=160 H Urine Blood Negative Urine Nitrite Negative Urine Bilirubin Negative Urine Urobilinogen 0.2 Ur Leukocyte Esterase Negative Urine RBC 0-2 Urine WBC 0-2 Ur Epithelial Cells Many Urine Crystals Few Amorphous Urine Bacteria Few Urine Mucus Negative Ur Culture Indicated? No Urine Glucose 500 H 08/23/23 08/23/23 08/23/23 12:05 13:00 18:05 WBC RBC Hgb Hct MCV MCH MCHC RDW Plt Count MPV Immature Gran % Neutrophils % Band Neutrophils % Lymphocytes % Atypical Lymphs % Monocytes % Eosinophils % Basophils % Metamyelocytes % Myelocytes % Promyelocytes % Other Cells % Nucleated RBC % Absolute Neutrophils Absolute Lymphocytes Absolute Monocytes Absolute Eosinophils Absolute Basophils RBC Morphology Polychromasia Hypochromasia Poikilocytosis Basophilic Stippling Anisocytosis Microcytosis Macrocytosis Spherocytes Tear Drop Cells Ovalocytes Stomatocytes [place] Bodies [place] Cells/Echinocytes Acanthocytes (Spur) Schistocytes PT INR APTT VBG pH VBG pCO2 VBG pO2 VBG HCO3 VBG Total CO2 VBG O2 Saturation VBG Base Excess Sodium 136 Potassium 2.8 L* Chloride 96 L Carbon Dioxide 28.8 Anion Gap 11.2 H BUN 15 Creatinine 1.0 Est GFR (CKD-EPI 2020) 73.95 Glucose 250 H Calcium 8.3 L Magnesium Cancelled 1.6 L Cancelled Total Bilirubin AST ALT Alkaline Phosphatase Total Protein Albumin Lipase TSH Urine Color Urine Clarity Urine pH Ur Specific [place] Urine Protein Urine Ketones Urine Blood Urine Nitrite Urine Bilirubin Urine Urobilinogen Ur Leukocyte Esterase Urine RBC Urine WBC Ur Epithelial Cells Urine Crystals Urine Bacteria Urine Mucus Ur Culture Indicated? Urine Glucose Time Spent with Patient Time Spent with Patient: >50 minutes Time was spent: preparing to see the patient(eg.review tests), obtaining and/or reviewing separately otained hiistory, ordering medications,tests, procedures, referring, communicating with other health director critical care, indepentently interpreting results, counseling the patient and care coordination
[2023-08-23] MEDS: traMADol 50 MG TAB PO (14:27)
[2023-08-23 14:33] LABS: Lab Add On Test DONE
[2023-08-23 14:48] LABS: ALT 17 U/L (14-59); AST 13 U/L (15-37); Alkaline Phosphatase 92 U/L (46-116); Bilirubin, Direct 0.1 mg/dL (0.0-0.2); Bilirubin, Total 0.3 mg/dL (0.2-1.0); Total Protein 6.8 g/dL (6.4-8.2)
[2023-08-23] MEDS: MAGNESIUM SULFATE 4 GM/100 ML BAG IVPB (14:52)
[2023-08-23 15:02] LABS: Procalcitonin < 0.1 ng/mL
--- NOTE | 2023-08-23 15:10 | W.SURGCON ---
Date of service: 08/23/23 Time of Service: 15:10 Assessment and Plan Assessment and plan (1) Gallbladder sludge: Status: Acute Assessment and plan: CT: 08/23/23 Liver: Normal. No mass. Gallbladder and bile ducts: Large volume gallbladder sludge. No cholecystitis or biliary ductal dilatation. Pancreas: Unremarkable. Spleen: Normal. Adrenal glands: Normal. No mass. Kidneys and ureters: Normal. No hydronephrosis. Stomach and bowel: Unremarkable. No bowel wall thickening or intestinal obstruction. Appendix: Normal appendix. US- pd She had an ultrasound done a year ago that was normal. I do not feel that this is her gallbladder.. This is more likely a exacerbation of her gastroparesis. This has been previously diagnosed by GI @ [facility] and managed by them. We are attempting to contact her pharmacy to verify the meds that she is on as the meds she is telling me are inconsistent with a med list that we have [facility] (2) Cannabinoid hyperemesis syndrome: Status: Acute (3) DVT (deep venous thrombosis): Status: Chronic (4) IDDM (insulin dependent diabetes mellitus): Status: Chronic (5) Diabetic foot ulcer associated with secondary diabetes mellitus: Status: Resolved Assessment and plan: MRI foot patient is on oral doxycycline Patient had a wound culture done on 08/11/2023 which did show: Staph aureus and strep B. 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 This document was created with voice activated software and may contain errors. 75 mins spent with the patient today. (10) Infection of toe: Status: Acute (11) Osteomyelitis: Status: Acute (12) Abscess: Status: Acute (13) Osteomyelitis of left foot: Status: Acute (14) Cellulitis of foot, left: Status: Acute (15) Amputation of toe of left foot: Status: Acute (16) Tobacco abuse: Status: Acute (17) Peripheral neuropathy: (18) Diabetic neuropathy: (19) IBS (irritable bowel syndrome): Qualifiers: Irritable bowel syndrome type: other Qualified Code(s): K58.8 - Other irritable bowel syndrome (20) Type 2 diabetes mellitus: (21) Diabetes: (22) Anxiety and depression: History of Present Illness Narrative: Patient is a 38-year-old female well-known to the surgical service. She has a history of poorly controlled diabetes which is resulted in gastroparesis and multiple diabetic foot ulcers. She has had the first and second digits on her left foot amputated. These incision sites have healed well. She has metatarsal ulcer on the bottom of the left foot that has not healed. She has been on chronic doxycycline. She has been having pain and drainage from the ulcer. She has been having fever and chills at home. She has a 17,000 white count and documented fevers. She had wound cultures done on 08/11/2023 that grew out staph and strep B. She has been on chronic doxycycline orally as an outpatient. Her CRP today is 3.3 blood cultures are pending. She has a history of intractable nausea and vomiting. She presented to the ER today chiefly for the nausea and vomiting. She has been diagnosed with gastroparesis by GI at [facility]. She is on daily erythromycin and Zofran for the nausea and as needed Phenergan suppositories for intractable nausea. Her last A1c was 8.1. We only have the liquid EES. Pharmacy is checking on dosing options She presented to the ER today again with intractable nausea and vomiting. She did have a CT scan which showed some mild dilation of her gallbladder. She does have sludge in the gallbladder. There is no pericholecystic fluid, thickened wall or dilated ducts. Her enzymes are normal. She does have an ultrasound that is pending. She having some mild abdominal pain. It is more in the mid anterior abdominal wall. We will see what the ultrasound shows, but I am more concerned that the white count is coming from her foot and not from the gallbladder. US 10/26 MPRESSION: 1. No evidence of cholelithiasis nor dilatation of the biliary tree. 2. Incidentally noted is thickening the gastric wall. Given this finding on ultrasound plus the appearance of the lower esophagus-proximal stomach on the recent CT scan, endoscopy is recommended rule out inflammatory versus neoplastic process. 3. There is no ascites. Endoscopy Report DATE OF PROCEDURE: 10/27/22 PRE-OP DIAGNOSIS: Chronic Nausea and Vomiting POST-OP DIAGNOSIS: same (and duodenitis and esophagitis) PROCEDURE: EGD with biopsies SURGEON: Milvia Collier ANESTHESIA TYPE: General:No Airway ESTIMATED BLOOD LOSS: 3 PATHOLOGY: other (duodenal bx, stomach bx and GE junction bx) COMPLICATIONS: None DISPOSITION: same day INDICATIONS: Ms Luo is a pleasant 37-year-old female who was referred by the emergency department to discuss an upper endoscopy.? I suspect that her chronic nausea and vomiting is from her gastroparesis which is not being well treated with the once a day Reglan.? I also think that the abnormalities on the CT scan and ultrasound are from her chronic vomiting, having said that its not unreasonable to do an upper endoscopy to make sure that there is not anything else going on like ulcers.? We discussed the procedure in detail as well as the risks, benefits and complications.? Risks, benefits and complications have been reviewed. Complications include but are not limited to bleeding, pain, perforation, sore throat, aspiration, and adverse reaction to the medications.? Questions were entertained and answered to their satisfaction and they wished to proceed. No guarantees were given or implied. FINDINGS: mild duodenitis, reflux esophagitis PROCEDURE DESCRIPTION: After informed consent was obtained the patient was take to the procedure room and placed in a supine position. Monitors were applied and a time out was done. The patients name, date of , procedure type, allergies to medications and metal in their body was reviewed. A bite block was placed and the patient was sedated. Once sedated and comfortable the gastroscope was advanced through the oropharynx which was grossly normal into the esophagus. The proximal and mid-esophagus were normal. In the distal esophagus there was inflammation noted. The scope was advanced into the stomach and through the pylorus into the 3rd portion of the duodenum. The duodenum was noted to bhave some mild inflammation. Biopsies were done. The scope was retracted back into the stomach and biopsies were done to rule out H. pylori. There were no ulcers. The scope was retroflexed. The cardia and fundus were noted to be normal. There was no hiatal hernia noted. The scope was retracted back into the esophagus and biopsies were done of the GE junction to rule out Noyola's. The Z line was regular. The GE junction was at 32 cm. The scope was removed and the patient was woken up and taken back to [facility] in stable condition. path: Active esophagitis and esophageal ulcer Review of Systems All systems reviewed & are unremarkable except as noted in HPI and below PFSH All Active Problems (Updated 08/23/23 @ 15:28 by Cynthia Case APRN) Abnormal CT of the abdomen (Acute) Gallbladder sludge (Acute) Diabetic foot ulcer (Acute) Intractable nausea and vomiting (Acute) Dehydration (Acute) Ulcer of left foot with fat layer exposed (Acute) Osteomyelitis of left foot (Acute) DVT (deep venous thrombosis) (Chronic) Cellulitis of foot, left (Acute) Corns and callosities (Acute) Leukocytosis (Acute) Hypomagnesemia (Acute) Chronic nausea (Acute) Calf pain (Acute) Cellulitis of foot (Acute) Diabetic toe ulcer (Acute) Abscess (Acute) Vomiting (Acute) Gastroparesis (Chronic) IDDM (insulin dependent diabetes mellitus) (Chronic) Tobacco abuse (Acute) Cannabinoid hyperemesis syndrome (Acute) Upper GI bleeding (Acute) UTI (urinary tract infection) (Acute) Hypokalemia (Acute) Type 2 diabetes mellitus with diabetic neuropathy (Chronic) Ulcer of other part of foot (Acute) Amputation of toe of left foot (Acute) Infection of toe (Acute) Osteomyelitis (Acute) Medical History Ulcerative esophagitis Peripheral neuropathy History of osteomyelitis IBS (irritable bowel syndrome) History of kidney stones Chest pain r/t Anxiety Back pain Cellulitis of third toe, left Type 2 diabetes mellitus History of cellulitis toe Suicide attempt Anxiety and depression Diabetic neuropathy Diabetes Type 1, per patient she said she was told she had diabetes type 2. 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 Maternal Cousin Breast cancer Maternal Cousin Breast cancer Maternal Cousin Breast cancer Social History Smoking/Tobacco Use Status: Current every day Tobacco Type: cigarettes Smoking risk assessment performed?: Yes Alcohol Intake: current Alcohol Intake frequency: holidays/special occasions only Drug use: Daily Substance use type: marijuana Details: last marijuana was last week Housing: house Do you feel safe at home: Yes Do you feel safe in your relationship?: Yes Exam Narrative Exam Narrative: PHYSICAL EXAM GENERAL APPEARANCE: Alert, healthy appearance, oriented, x 3,? in no acute distress HYDRATION: Well hydrated HEAD, EYES, EARS, NECK, THROAT: Head is normocephalic, pupils equal, round, reactive to light and accommodation, ocular movement intact, sclera clear and no jaundice. ?Dentition - poor LUNGS: normal respiration/normal chest excursion. ?Clear to auscultation bilaterally. ?No wheeze. ?HEART: Regular rate and rhythm. no murmurs EXTREMITY: ? no redness, +swelling she has a 0.5 cm open ulcer on the left #1 metatarsal. It is down to the fat at the minimum. It is draining serous drainage. It does have a significant amount of callus on it. ABIs are unknown ABDOMEN: soft and non-tender to palpation.? Normal bowel sounds. +BS Results Last Vital Signs Temp 36.9 C 08/23/23 15:04 Pulse 110 H 08/23/23 15:04 Resp 17 08/23/23 15:04 BP 139/89 08/23/23 15:04 Pulse Ox 95 08/23/23 15:04 Labs 08/23/23 03:45 08/23/23 13:00 Labs: Laboratory Results - last 24 hr 08/23/23 08/23/23 08/23/23 00:55 01:24 03:45 WBC Cancelled 21.09 H 17.71 H RBC Cancelled 5.05 4.52 Hgb Cancelled 15.8 H 14.1 Hct Cancelled 45.1 40.7 MCV Cancelled 89 90 MCH Cancelled 31.3 31.2 MCHC Cancelled 35.0 34.6 RDW Cancelled 12.7 12.7 Plt Count Cancelled 414 H 389 MPV Cancelled 10.3 9.8 Immature Gran % Cancelled 0.4 0.5 Neutrophils % Cancelled 78.3 77.3 Band Neutrophils % Cancelled Lymphocytes % Cancelled 13.2 14.2 Atypical Lymphs % Cancelled Monocytes % Cancelled 7.9 7.8 Eosinophils % Cancelled 0.0 0.1 Basophils % Cancelled 0.2 0.1 Metamyelocytes % Cancelled Myelocytes % Cancelled Promyelocytes % Cancelled Other Cells % Cancelled Nucleated RBC % Cancelled 0.0 0.0 Absolute Neutrophils Cancelled 16.51 H 13.69 H Absolute Lymphocytes Cancelled 2.78 2.51 Absolute Monocytes Cancelled 1.67 H 1.38 H Absolute Eosinophils Cancelled 0.00 0.02 Absolute Basophils Cancelled 0.04 0.02 RBC Morphology Cancelled Normal Polychromasia Cancelled Hypochromasia Cancelled Poikilocytosis Cancelled Basophilic Stippling Cancelled Anisocytosis Cancelled Microcytosis Cancelled Macrocytosis Cancelled Spherocytes Cancelled Tear Drop Cells Cancelled Ovalocytes Cancelled Stomatocytes Cancelled [place] Bodies Cancelled Tena Cells/Echinocytes Cancelled Acanthocytes (Spur) Cancelled Schistocytes Cancelled PT Cancelled 10.3 INR Cancelled 1.0 APTT Cancelled 27.6 VBG pH 7.57 H VBG pCO2 37 L VBG pO2 68 VBG HCO3 35 H VBG Total CO2 29 VBG O2 Saturation 93 VBG Base Excess 13 H Sodium Cancelled 139 142 Potassium Cancelled 3.7 2.9 L* Chloride Cancelled 95 L 99 Carbon Dioxide Cancelled 33.3 H 32.8 H Anion Gap Cancelled 10.7 10.2 BUN Cancelled 22 H 19 H Creatinine Cancelled 0.9 0.9 Est GFR (CKD-EPI 2020) Cancelled 83.92 83.92 Glucose Cancelled 332 H 311 H Calcium Cancelled 9.8 8.7 Magnesium Cancelled 1.8 Total Bilirubin Cancelled 0.5 0.3 Conjugated Bilirubin AST Cancelled 30 12 L ALT Cancelled 19 16 Alkaline Phosphatase Cancelled 122 H 107 Total Protein Cancelled 8.8 H 6.9 Albumin Cancelled 3.8 3.4 Lipase Cancelled 28 Procalcitonin TSH Cancelled 0.88 Urine Color Urine Clarity Urine pH Ur Specific [place] Urine Protein Urine Ketones Urine Blood Urine Nitrite Urine Bilirubin Urine Urobilinogen Ur Leukocyte Esterase Urine RBC Urine WBC Ur Epithelial Cells Urine Crystals Urine Bacteria Urine Mucus Ur Culture Indicated? Urine Glucose Add-On Test Request 08/23/23 08/23/23 08/23/23 04:43 06:05 06:55 WBC RBC Hgb Hct MCV MCH MCHC RDW Plt Count MPV Immature Gran % Neutrophils % Band Neutrophils % Lymphocytes % Atypical Lymphs % Monocytes % Eosinophils % Basophils % Metamyelocytes % Myelocytes % Promyelocytes % Other Cells % Nucleated RBC % Absolute Neutrophils Absolute Lymphocytes Absolute Monocytes Absolute Eosinophils Absolute Basophils RBC Morphology Polychromasia Hypochromasia Poikilocytosis Basophilic Stippling Anisocytosis Microcytosis Macrocytosis Spherocytes Tear Drop Cells Ovalocytes Stomatocytes [place] Bodies Tena Cells/Echinocytes Acanthocytes (Spur) Schistocytes PT INR APTT VBG pH VBG pCO2 VBG pO2 VBG HCO3 VBG Total CO2 VBG O2 Saturation VBG Base Excess Sodium 143 Potassium 3.1 L Chloride 99 Carbon Dioxide 31.9 Anion Gap 12.1 H BUN 18 Creatinine 0.8 Est GFR (CKD-EPI 2020) 96.66 Glucose 283 H Calcium 9.0 Magnesium Cancelled 1.6 L Total Bilirubin Conjugated Bilirubin AST ALT Alkaline Phosphatase Total Protein Albumin Lipase Procalcitonin TSH Urine Color Yellow Urine Clarity Sl Cloudy Urine pH 7.5 Ur Specific [place] 1.020 Urine Protein 30 H Urine Ketones >=160 H Urine Blood Negative Urine Nitrite Negative Urine Bilirubin Negative Urine Urobilinogen 0.2 Ur Leukocyte Esterase Negative Urine RBC 0-2 Urine WBC 0-2 Ur Epithelial Cells Many Urine Crystals Few Amorphous Urine Bacteria Few Urine Mucus Negative Ur Culture Indicated? No Urine Glucose 500 H Add-On Test Request 08/23/23 08/23/23 08/23/23 12:05 13:00 18:05 WBC RBC Hgb Hct MCV MCH MCHC RDW Plt Count MPV Immature Gran % Neutrophils % Band Neutrophils % Lymphocytes % Atypical Lymphs % Monocytes % Eosinophils % Basophils % Metamyelocytes % Myelocytes % Promyelocytes % Other Cells % Nucleated RBC % Absolute Neutrophils Absolute Lymphocytes Absolute Monocytes Absolute Eosinophils Absolute Basophils RBC Morphology Polychromasia Hypochromasia Poikilocytosis Basophilic Stippling Anisocytosis Microcytosis Macrocytosis Spherocytes Tear Drop Cells Ovalocytes Stomatocytes [place] Bodies [place] Cells/Echinocytes Acanthocytes (Spur) Schistocytes PT INR APTT VBG pH VBG pCO2 VBG pO2 VBG HCO3 VBG Total CO2 VBG O2 Saturation VBG Base Excess Sodium 136 Potassium 2.8 L* Chloride 96 L Carbon Dioxide 28.8 Anion Gap 11.2 H BUN 15 Creatinine 1.0 Est GFR (CKD-EPI 2020) 73.95 Glucose 250 H Calcium 8.3 L Magnesium Cancelled 1.6 L Cancelled Total Bilirubin 0.3 Conjugated Bilirubin 0.1 AST 13 L ALT 17 Alkaline Phosphatase 92 Total Protein 6.8 Albumin 3.0 L Lipase Procalcitonin < 0.1 TSH Urine Color Urine Clarity Urine pH Ur Specific [place] Urine Protein Urine Ketones Urine Blood Urine Nitrite Urine Bilirubin Urine Urobilinogen Ur Leukocyte Esterase Urine RBC Urine WBC Ur Epithelial Cells Urine Crystals Urine Bacteria Urine Mucus Ur Culture Indicated? Urine Glucose Add-On Test Request DONE
--- NOTE | 2023-08-23 15:52 | W.PODCONSULT ---
Date of service: 08/23/23 Time of Service: 15:53 History of Present Illness Narrative: Attempted to see. Patient out for gastric emptying study. Will try again tomorrow PFSH All Active Problems (Updated 08/23/23 @ 15:28 by Cynthia Case APRN) Abnormal CT of the abdomen (Acute) Gallbladder sludge (Acute) Diabetic foot ulcer (Acute) Intractable nausea and vomiting (Acute) Dehydration (Acute) Ulcer of left foot with fat layer exposed (Acute) Osteomyelitis of left foot (Acute) DVT (deep venous thrombosis) (Chronic) Cellulitis of foot, left (Acute) Corns and callosities (Acute) Leukocytosis (Acute) Hypomagnesemia (Acute) Chronic nausea (Acute) Calf pain (Acute) Cellulitis of foot (Acute) Diabetic toe ulcer (Acute) Abscess (Acute) Osteomyelitis (Acute) Infection of toe (Acute) Amputation of toe of left foot (Acute) Ulcer of other part of foot (Acute) Type 2 diabetes mellitus with diabetic neuropathy (Chronic) Hypokalemia (Acute) UTI (urinary tract infection) (Acute) Upper GI bleeding (Acute) Cannabinoid hyperemesis syndrome (Acute) Tobacco abuse (Acute) IDDM (insulin dependent diabetes mellitus) (Chronic) Gastroparesis (Chronic) Vomiting (Acute) Medical History Ulcerative esophagitis Peripheral neuropathy History of osteomyelitis IBS (irritable bowel syndrome) History of kidney stones Chest pain r/t Anxiety Back pain Cellulitis of third toe, left Type 2 diabetes mellitus History of cellulitis toe Suicide attempt Anxiety and depression Diabetic neuropathy Diabetes Type 1, per patient she said she was told she had diabetes type 2. 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 Maternal Cousin Breast cancer Maternal Cousin Breast cancer Maternal Cousin Breast cancer Social History Smoking/Tobacco Use Status: Current every day Tobacco Type: cigarettes Smoking risk assessment performed?: Yes Alcohol Intake: current Alcohol Intake frequency: holidays/special occasions only Drug use: Daily Substance use type: marijuana Details: last marijuana was last week Housing: house Do you feel safe at home: Yes Do you feel safe in your relationship?: Yes Results Last Vital Signs Temp 98.5 F 08/23/23 15:04 Pulse 110 H 08/23/23 15:04 Resp 17 08/23/23 15:04 BP 139/89 08/23/23 15:04 Pulse Ox 95 08/23/23 15:04 Labs 08/23/23 03:45 08/23/23 13:00 Labs: Laboratory Results - last 24 hr 08/23/23 08/23/23 08/23/23 00:55 01:24 03:45 WBC Cancelled 21.09 H 17.71 H RBC Cancelled 5.05 4.52 Hgb Cancelled 15.8 H 14.1 Hct Cancelled 45.1 40.7 MCV Cancelled 89 90 MCH Cancelled 31.3 31.2 MCHC Cancelled 35.0 34.6 RDW Cancelled 12.7 12.7 Plt Count Cancelled 414 H 389 MPV Cancelled 10.3 9.8 Immature Gran % Cancelled 0.4 0.5 Neutrophils % Cancelled 78.3 77.3 Band Neutrophils % Cancelled Lymphocytes % Cancelled 13.2 14.2 Atypical Lymphs % Cancelled Monocytes % Cancelled 7.9 7.8 Eosinophils % Cancelled 0.0 0.1 Basophils % Cancelled 0.2 0.1 Metamyelocytes % Cancelled Myelocytes % Cancelled Promyelocytes % Cancelled Other Cells % Cancelled Nucleated RBC % Cancelled 0.0 0.0 Absolute Neutrophils Cancelled 16.51 H 13.69 H Absolute Lymphocytes Cancelled 2.78 2.51 Absolute Monocytes Cancelled 1.67 H 1.38 H Absolute Eosinophils Cancelled 0.00 0.02 Absolute Basophils Cancelled 0.04 0.02 RBC Morphology Cancelled Normal Polychromasia Cancelled Hypochromasia Cancelled Poikilocytosis Cancelled Basophilic Stippling Cancelled Anisocytosis Cancelled Microcytosis Cancelled Macrocytosis Cancelled Spherocytes Cancelled Tear Drop Cells Cancelled Ovalocytes Cancelled Stomatocytes Cancelled [place] Bodies Cancelled Douglas Cells/Echinocytes Cancelled Acanthocytes (Spur) Cancelled Schistocytes Cancelled PT Cancelled 10.3 INR Cancelled 1.0 APTT Cancelled 27.6 VBG pH 7.57 H VBG pCO2 37 L VBG pO2 68 VBG HCO3 35 H VBG Total CO2 29 VBG O2 Saturation 93 VBG Base Excess 13 H Sodium Cancelled 139 142 Potassium Cancelled 3.7 2.9 L* Chloride Cancelled 95 L 99 Carbon Dioxide Cancelled 33.3 H 32.8 H Anion Gap Cancelled 10.7 10.2 BUN Cancelled 22 H 19 H Creatinine Cancelled 0.9 0.9 Est GFR (CKD-EPI 2020) Cancelled 83.92 83.92 Glucose Cancelled 332 H 311 H Calcium Cancelled 9.8 8.7 Magnesium Cancelled 1.8 Total Bilirubin Cancelled 0.5 0.3 Conjugated Bilirubin AST Cancelled 30 12 L ALT Cancelled 19 16 Alkaline Phosphatase Cancelled 122 H 107 Total Protein Cancelled 8.8 H 6.9 Albumin Cancelled 3.8 3.4 Lipase Cancelled 28 Procalcitonin TSH Cancelled 0.88 Urine Color Urine Clarity Urine pH Ur Specific [place] Urine Protein Urine Ketones Urine Blood Urine Nitrite Urine Bilirubin Urine Urobilinogen Ur Leukocyte Esterase Urine RBC Urine WBC Ur Epithelial Cells Urine Crystals Urine Bacteria Urine Mucus Ur Culture Indicated? Urine Glucose Add-On Test Request 08/23/23 08/23/23 08/23/23 04:43 06:05 06:55 WBC RBC Hgb Hct MCV MCH MCHC RDW Plt Count MPV Immature Gran % Neutrophils % Band Neutrophils % Lymphocytes % Atypical Lymphs % Monocytes % Eosinophils % Basophils % Metamyelocytes % Myelocytes % Promyelocytes % Other Cells % Nucleated RBC % Absolute Neutrophils Absolute Lymphocytes Absolute Monocytes Absolute Eosinophils Absolute Basophils RBC Morphology Polychromasia Hypochromasia Poikilocytosis Basophilic Stippling Anisocytosis Microcytosis Macrocytosis Spherocytes Tear Drop Cells Ovalocytes Stomatocytes [place] Bodies Douglas Cells/Echinocytes Acanthocytes (Spur) Schistocytes PT INR APTT VBG pH VBG pCO2 VBG pO2 VBG HCO3 VBG Total CO2 VBG O2 Saturation VBG Base Excess Sodium 143 Potassium 3.1 L Chloride 99 Carbon Dioxide 31.9 Anion Gap 12.1 H BUN 18 Creatinine 0.8 Est GFR (CKD-EPI 2020) 96.66 Glucose 283 H Calcium 9.0 Magnesium Cancelled 1.6 L Total Bilirubin Conjugated Bilirubin AST ALT Alkaline Phosphatase Total Protein Albumin Lipase Procalcitonin TSH Urine Color Yellow Urine Clarity Sl Cloudy Urine pH 7.5 Ur Specific Fl[place]agan 1.020 Urine Protein 30 H Urine Ketones >=160 H Urine Blood Negative Urine Nitrite Negative Urine Bilirubin Negative Urine Urobilinogen 0.2 Ur Leukocyte Esterase Negative Urine RBC 0-2 Urine WBC 0-2 Ur Epithelial Cells Many Urine Crystals Few Amorphous Urine Bacteria Few Urine Mucus Negative Ur Culture Indicated? No Urine Glucose 500 H Add-On Test Request 08/23/23 08/23/23 08/23/23 12:05 13:00 18:05 WBC RBC Hgb Hct MCV MCH MCHC RDW Plt Count MPV Immature Gran % Neutrophils % Band Neutrophils % Lymphocytes % Atypical Lymphs % Monocytes % Eosinophils % Basophils % Metamyelocytes % Myelocytes % Promyelocytes % Other Cells % Nucleated RBC % Absolute Neutrophils Absolute Lymphocytes Absolute Monocytes Absolute Eosinophils Absolute Basophils RBC Morphology Polychromasia Hypochromasia Poikilocytosis Basophilic Stippling Anisocytosis Microcytosis Macrocytosis Spherocytes Tear Drop Cells Ovalocytes Stomatocytes [place] Bodies Tena Cells/Echinocytes Acanthocytes (Spur) Schistocytes PT INR APTT VBG pH VBG pCO2 VBG pO2 VBG HCO3 VBG Total CO2 VBG O2 Saturation VBG Base Excess Sodium 136 Potassium 2.8 L* Chloride 96 L Carbon Dioxide 28.8 Anion Gap 11.2 H BUN 15 Creatinine 1.0 Est GFR (CKD-EPI 2020) 73.95 Glucose 250 H Calcium 8.3 L Magnesium Cancelled 1.6 L Cancelled Total Bilirubin 0.3 Conjugated Bilirubin 0.1 AST 13 L ALT 17 Alkaline Phosphatase 92 Total Protein 6.8 Albumin 3.0 L Lipase Procalcitonin < 0.1 TSH Urine Color Urine Clarity Urine pH Ur Specific [place] Urine Protein Urine Ketones Urine Blood Urine Nitrite Urine Bilirubin Urine Urobilinogen Ur Leukocyte Esterase Urine RBC Urine WBC Ur Epithelial Cells Urine Crystals Urine Bacteria Urine Mucus Ur Culture Indicated? Urine Glucose Add-On Test Request DONE
[2023-08-23] MEDS: Metoclopramide 10 MG TAB PO ×2 (16:18→21:21)
[2023-08-23 19:27] LABS: Anion Gap 7.8 mmol/L (3-11); BUN 12 mg/dL (7-18); CO2 31.2 mmol/L (21.0-32.0); CREATININE 0.8 mg/dL (0.55-1.02); Calcium 8.7 mg/dL (8.5-10.1); Chloride 97 mmol/L (98-107); Estimated GFR 96.66 (mL/min/1.73m2); Glucose 295 mg/dL (74-106); Magnesium 2.8 mg/dL (1.8-2.4); Potassium 3.3 mmol/L (3.5-5.1); Sodium 136 mmol/L (136-145)
[2023-08-23] MEDS: Gabapentin 300 MG CAP 900 MG PO (21:21)
[2023-08-24 02:14] LABS: HCT 39.5 % (36.0-46.0); HGB 13.7 g/dL (11.2-15.7); MCH 30.8 pg (27.0-33.0); MCHC 34.7 % (32.0-36.0); MCV 89 fL (80-95); Platelet Count 270 10^3/uL (130-400); RBC 4.45 10^6/uL (3.93-5.22); RDW 12.6 % (11.7-14.6); RDW-SD 41.2 fL
[2023-08-24 02:16] LABS: Potassium 4.1 mmol/L (3.5-5.1)
[2023-08-24 03:42] VITALS: BP 143/67; PULSE 104; RESP 18; TEMP 36.7; O2SAT 100
[2023-08-24 07:03] VITALS: BP 136/86; PULSE 110; RESP 24; TEMP 36.2; O2SAT 97
[2023-08-24] MEDS: Lidocaine 5% Patch 1 PATCH TP (07:45)
[2023-08-24] MEDS: Gabapentin 300 MG CAP PO (07:46)
[2023-08-24] MEDS: Enoxaparin 40 MG/0.4 ML SYR SC (07:46)
[2023-08-24] MEDS: Doxycycline Hyclate 100 MG CAP PO (07:46)
[2023-08-24] MEDS: DULoxetine 20 MG CAP 40 MG PO (07:46)
[2023-08-24] MEDS: Metoclopramide 10 MG TAB PO ×2 (07:46→12:16)
[2023-08-24] MEDS: Famotidine 20 MG/2 ML VIAL IVP (07:47)
[2023-08-24] MEDS: Normal Saline Flush 10 ML SYR IVP ×2 (07:47)
[2023-08-24] MEDS: Insulin Aspart 300 UNITS/3 ML PEN SC ×2 (07:58→12:23)
[2023-08-24 08:06] VITALS: PULSE 95
--- NOTE | 2023-08-24 08:19 | PDOC.CMPRO ---
Date of service: 08/24/23 Time of Service: 08:19 Care Management Progress Note Progress Note Text Progress Note Text: S/O; A; Stella is a 38 year old woman admitted on 08/23/23 with dehydration P;Anticipate Cristy will be discharged home with no new services. She will follow up with her PCP and plan of care and transport with family. CM will follow and continue to assess for discharge needs. SDOH(Care Management) Screening Will the Patient Participate in the Screening?: Yes Do you worry about having a steady place to live?: no In the past 12 months, have you had to go without electric, gas, oil or water in your home?: no Have you or anyone in your house had to go without enough food to eat?: no Has lack of transportation kept you from medical appointments or from doing things needed for daily living?: no Has anyone in your support network made you feel unsafe for any reason?: no
--- NOTE | 2023-08-24 08:36 | POCOE_ITS ---
Date of service: 08/24/23 Time of Service: 07:50 Assessment and Plan Assessment and plan (1) Diabetic foot ulcer: Status: Acute Qualifiers: Diabetic foot ulcer location: toe Diabetes mellitus type: type 2 L aterality: left Non-pressure ulcer stage: limited to breakdown of skin Qualified Code(s): E11.621 - Type 2 diabetes mellitus with foot ulcer; L97.521 - Non-pressure chronic ulcer of other part of left foot limited to breakdown of skin (2) Ulcer of left foot with fat layer exposed: Status: Acute (3) Cellulitis of foot: Status: Acute (4) Type 2 diabetes mellitus with diabetic neuropathy: Status: Chronic Qualifiers: Diabetes mellitus salvage determiner insulin use: with salvage determiner use Qualified Code(s): E11.40 - Type 2 diabetes mellitus with diabetic neuropathy, unspecified; 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 X-rays from 3 04/2024 did not demonstrate osteomyelitis at this time. Cultures from left foot wound growing Staph aureus, group B strep, normal candis I recommend an MRI at this time to evaluate for osteomyelitis to the first metatarsal head/sesamoids. Dressings were applied with 4 x 4, Kerlix and an Dillon wrap. Nursing to continue daily dressing changes with 4 x 4, Kerlix and Dillon wrap Will continue to follow and update plan History of Present Illness Narrative: Patient was seen bedside for left foot wound. She presented to the hospital for gastroparesis. States that she has been doing better since she got IV fluids. Denies any pain to her feet since she has neuropathy. States that the right foot second is doing better however she continues to have sanguinous drainage from the wound. Denies any other pedal complaints today. PFSH All Active Problems Abnormal CT of the abdomen (Acute) Gallbladder sludge (Acute) Diabetic foot ulcer (Acute) Intractable nausea and vomiting (Acute) Dehydration (Acute) Ulcer of left foot with fat layer exposed (Acute) Osteomyelitis of left foot (Acute) DVT (deep venous thrombosis) (Chronic) Cellulitis of foot, left (Acute) Corns and callosities (Acute) Leukocytosis (Acute) Hypomagnesemia (Acute) Chronic nausea (Acute) Calf pain (Acute) Cellulitis of foot (Acute) Diabetic toe ulcer (Acute) Abscess (Acute) Osteomyelitis (Acute) Infection of toe (Acute) Amputation of toe of left foot (Acute) Ulcer of other part of foot (Acute) Type 2 diabetes mellitus with diabetic neuropathy (Chronic) Hypokalemia (Acute) UTI (urinary tract infection) (Acute) Upper GI bleeding (Acute) Cannabinoid hyperemesis syndrome (Acute) Tobacco abuse (Acute) IDDM (insulin dependent diabetes mellitus) (Chronic) Gastroparesis (Chronic) Vomiting (Acute) Medical History Ulcerative esophagitis Peripheral neuropathy History of osteomyelitis IBS (irritable bowel syndrome) History of kidney stones Chest pain r/t Anxiety Back pain Cellulitis of third toe, left Type 2 diabetes mellitus History of cellulitis toe Suicide attempt Anxiety and depression Diabetic neuropathy Diabetes Type 1, per patient she said she was told she had diabetes type 2. 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 Maternal Cousin Breast cancer Maternal Cousin Breast cancer Maternal Cousin Breast cancer Social History Smoking/Tobacco Use Status: Current every day Tobacco Type: cigarettes Smoking risk assessment performed?: Yes Alcohol Intake: current Alcohol Intake frequency: holidays/special occasions only Drug use: Daily Substance use type: marijuana Details: last marijuana was last week Housing: house Do you feel safe at home: Yes Do you feel safe in your relationship?: Yes Exam Extrem Other: Cardio Other: DP/PT pulses 2/4 bilaterally, capillary refill time less than 3 seconds, pedal hair present but decreased Musc Other: Left hallux amputation; left second and 3rd digit distal amputation, claw toe deformities noted digits 3 through 5 in the left digits 1 through 5 on the right. Skin Other: Skin is warm dry and supple bilaterally there is heavy hyperkeratotic tissue noted to the first MPJ plantarly bilateral, heavy hyperkeratosis noted to the plantar aspect of the left third metatarsophalangeal joint with an open fissure noted at the plantar sulcus no periwound erythema edema drainage or malodor noted- ulceration is now healed. Full-thickness ulceration noted subleft first metatarsophalangeal joint measuring 14mmx 15mmx 12mm depth, there is no malodor noted there is serosanguineous drainage noted on the dressings, no purulence no fluctuance no crepitus no palpable abscess noted no proximal streaking noted no periwound erythema noted at this time however there is undermining noted circumferentially. Results Last Vital Signs Temp 97.2 F L 08/24/23 07:03 Pulse 95 H 08/24/23 08:06 24 08/24/23 07:03 BP 136/86 08/24/23 07:03 Pulse Ox 97 08/24/23 07:03 Labs 08/24/23 02:00 08/24/23 02:00 Labs: Laboratory Results - last 24 hr 08/23/23 08/23/23 08/24/23 13:00 19:10 02:00 WBC 12.80 H RBC 4.45 Hgb 13.7 Hct 39.5 MCV 89 MCH 30.8 MCHC 34.7 RDW 12.6 Plt Count 270 MPV 10.0 Sodium 136 136 Potassium 2.8 L* 3.3 L 4.1 Chloride 96 L 97 L Carbon Dioxide 28.8 31.2 Anion Gap 11.2 H 7.8 BUN 15 12 Creatinine 1.0 0.8 Est GFR (CKD-EPI 2020) 73.95 96.66 Glucose 250 H 295 H Calcium 8.3 L 8.7 Magnesium 1.6 L 2.8 H Total Bilirubin 0.3 Conjugated Bilirubin 0.1 AST 13 L ALT 17 Alkaline Phosphatase 92 Total Protein 6.8 Albumin 3.0 L Procalcitonin < 0.1 Add-On Test Request DONE
--- NOTE | 2023-08-24 09:21 | DI.RAD_ITS ---
Exam(s) XR FOOT LT COMPLETE EXAM: XR FOOT LT COMPLETE CLINICAL HISTORY: Osteomyelitis left foot. TECHNIQUE: 2D digital imaging was performed. Three views. COMPARISON: CR XR FOOT LT COMPLETE from 08/15/2023 FINDINGS: BONES: Amputation again noted of the 1st and 2nd toes and amputation of the distal phalanx of the 3rd toe. No acute fracture is present. No bony destructive lesion is seen. Prominent heel spur. Acces lc navicular. JOINTS: No dislocation present. SOFT TISSUE: No abnormal gas collection. IMPRESSION: Status post toe amputations. No plain film evidence of osteomyelitis. DATA REPOSITORY: RADIATION DOSE DELIVERED:
[2023-08-24] MEDS: LORazepam 1 MG TAB PO (09:48)
[2023-08-24] MEDS: traMADol 50 MG TAB PO (09:48)
[2023-08-24] MEDS: Gadoterate meglumine 20 ML SYRINGE IVP (11:38)
--- NOTE | 2023-08-24 12:15 | DI.MRI_ITS ---
Exam(s) MR LOWER EXTREMITY LT WO/W CLINICAL HISTORY: non healing diabetic foot ulcer/elevated WBC. TECHNIQUE: Multiplanar multisequence MRI was performed. CONTRAST MATERIAL: IV Contrast: 20 mL of Dotarem contrast administered. COMPARISON: None. FINDINGS: BONES/JOINTS: Amputation of the 1st and 2nd toes. Amputation of the distal phalanx of the 3rd toe. No fracture or contusion pattern. No evidence of osteomyelitis. LIGAMENTS: The tibiofibular, deltoid and calcaneofibular ligaments are intact. The syndesmosis is unr emarkable. Sinus tarsi is normal. MUSCULOTENDINOUS STRUCTURES: The visualized tendons appear intact. No fluid along the tendon sheath or abnormal enhancement. SOFT TISSUES: Wound at plantar aspect of foot beneath the level of the 1st metatarsal head. Soft tis phillip edema with enhancement in the soft tissues adjacent to the 1st and 2nd metatarsal heads, consiste nt with cellulitis.. No drainable abscess or fluid collection. IMPRESSION: Findings consistent with cellulitis around the 1st and 2nd metatarsal heads. No evidence of osteomye litis. DATA REPOSITORY:
[2023-08-24 12:57] VITALS: BP 124/91; PULSE 96; RESP 18; O2SAT 100
--- NOTE | 2023-08-24 14:16 | DSE_ITS ---
Date of service: 08/24/23 Time of Service: 14:16 DS: Diagnosis Discharge Diagnosis (1) Diabetic foot ulcer: Status: Acute (2) Ulcer of left foot with fat layer exposed: Status: Acute (3) Cellulitis of foot: Status: Acute (4) Type 2 diabetes mellitus with diabetic neuropathy: Status: Chronic (5) Diabetic foot ulcer associated with secondary diabetes mellitus: Status: Resolved Discharge Plan Disposition Patient Disposition: Home Condition: Improving Discharge Details Reason For Visit: Dehydration, Intractable nausea and vomiting, Hypo Admit Date/Time: 08/23/23 04:24 Admit Provider: Broderick Rubi Attending Provider: Broderick Rubi Primary Care Provider: CARLY PADGETT Hospital Course Hospital Course: This is a 38-year-old female patient who has recurrent episodes of intractable vomiting with fluid loss secondary to gastroparesis and uncontrolled diabetes which she acquired as an adult. She also has peripheral neuropathy with a recurrent ulcer over her left foot status post amputation of the first and second toes and part of the third toe. She has an active ulcer and being treated with doxycycline and ciprofloxacin. She denies any fever or chills and had sudden onset of intractable nausea and vomiting. She was admitted under hospitalist service for symptom management and IV hydration. Her symptoms slowly improved and diet advanced which she is tolerating well. She was also seen by podiatry for continuity of care. She has been following her diabetic foot ulcer outpatient. She did recommend MRI imaging to evaluate for osteomyelitis. There was no evidence of osteo on scan. Dr Lagos recommends discharge to home with 2 more weeks of antibiotics to complete her course. She will be followed outpatient in the clinic. Prescriptions sent to [facility] patient is discharged to home with no new services Discussed with DR Bradford Home Meds and New Rx's Prescriptions: New sulfamethoxazole-trimethoprim [Bactrim DS] 800-160 mg tablet 1 tab PO BID Qty: 28 0RF amoxicillin-pot clavulanate 875-125 mg tablet 1 tab PO BID Qty: 28 0RF Continued metoclopramide HCl [Reglan] 10 mg tablet 10 mg PO Q6H 30 Days Qty: 120 5RF Rx Instructions: take 30 minutes before meals and at bedtime omeprazole 40 mg capsule,delayed release(DR/EC) 40 mg PO DAILY Qty: 30 5RF gabapentin 300 mg Tablet 300 - 900 mg PO DIRECTED Rx Instructions: 300 qam 900 hs insulin glargine [Lantus Solostar U-100 Insulin] 100 unit/mL (3 mL) insulin pen 40 unit SUBCUT HS Patient Comments: INJECT 40 UNITS SUBCUTANEOUSLY AT BEDTIME insulin aspart U-100 [Novolog FlexPen U-100 Insulin] 100 unit/mL (3 mL) insulin pen See Rx Instructions SUBCUT TID Patient Comments: adjusted to carbs and pre-meal BS, up to 8u SUBCUTANEOUSLY THREE TIMES DAILY WITH MEALS Rx Instructions: subcutaneously three times a day; lidocaine [Lidoderm] 5 % adhesive patch,medicated 1 patch topical DIRECTED Patient Comments: PLACE 1 PATCH ONTO THE SKIN DAILY. PATCHE(S) MAY REMAIN IN PLACE FOR UP TO 12 HOURS IN ANY 24-HOUR PERIOD duloxetine 40 mg capsule,delayed release(DR/EC) 40 mg PO DAILY Patient Comments: TAKE 1 CAPSULE BY MOUTH ONCE DAILY (DME) Dexcom G6 Sensor Device See Rx Instructions .Route Qty: 6 0RF Rx Instructions: As directed Jardiance 10 mg Tablet 10 mg PO DAILY Qty: 30 0RF tramadol 50 mg Tablet 50 mg PO Q6H PRN PRNQty: 30 0RF ondansetron 4 mg tablet,disintegrating 4 mg PO Q6H PRNQty: 60 0RF Januvia 25 mg tablet 25 mg PO DAILY Discontinued doxycycline hyclate 100 mg capsule 100 mg PO BID Qty: 28 0RF Discharge Instructions Instructions: Cellulitis (DC), Acute Nausea and Vomiting (ED) Additional Instructions: dressing to left foot as per podiatry take antibiotics as prescribed for next 2 weeks, please see new prescriptions Stand Alone Forms: Nursing Discharge Form Referrals: CARLY PADGETT MD [Primary Care Provider] - (Please call to make a follow up appointment for 1-2 weeks.) Madelin Ojeda DPM [[facility] STAFF PHYSICIAN] - 09/08/23 10:15 am Activity:: Activity as Tolerated Equipment/Supplies:: No Equipment Needed Diet:: Carb Counting Discharge Orders Discharge Orders: Discharge Order (Routine); Ordered 08/24/23 Ordered By: Rosa Rm Discharge Data Discharge Date/Time-TO BE ENTERED AT DEPARTURE: 08/24/23 16:37 DS: Summary Time Spent with Patient providing and/or coordinating discharge services: Less than 30 minutes Status at Discharge Functional status at discharge: independent ambulation Overall status at discharge: patient is back to baseline Mental Status: mental status grossly normal Speech and Movement: speech and movement normal Mood: congruent mood Affect: normal affect Quality:SDOH Health Related Social Needs: No Data to Display Exam Narrative Exam Narrative: Well-appearing female of stated age in no acute distress head is atraumatic eyes normal appearance noninjected nonicteric oral mucosas moist no exudate neck with full range of motion respirations even and unlabored pulse is strong and regular dressing intact to left lower extremity no erythema extending proximally. There is no drainage on the dressing patient is awake alert oriented no focal deficits Psych Mental Status: mental status grossly normal Speech and Movement: speech and movement normal Mood: congruent mood Affect: normal affect DS: Data Vitals/I&O Vitals and I&O: Vital Signs Temperature 36.2 C L 08/24/23 07:03 Temperature Source Tympanic 08/24/23 07:03 Pulse 96 H 08/24/23 12:57 Pulse Rhythm Regular 08/24/23 10:28 Pulse 94 H 08/23/23 04:20 Respiratory Rate 18 08/24/23 12:57 Respiratory Effort Normal, Non-Labored 08/24/23 10:28 Respiratory Depth Normal 08/24/23 10:28 Respiratory Pattern Normal 08/24/23 10:28 Blood Pressure 124/91 H 08/24/23 12:57 Blood Pressure Mean 178 08/23/23 01:16 Pulse Oximetry 100 08/24/23 12:57 Oxygen Delivery Method Room Air 08/24/23 12:57 Oxygen Flow Rate 0 08/24/23 12:57 Pain Level 6 08/24/23 12:57 Comment Nurse notified about temp. 08/23/23 10:49 Intake & Output 08/23/23 08/24/23 08/24/23 23:59 11:59 23:59 Intake Total 840 / 4440 650 / 871 221 / 871 Balance 840 / 4440 650 / 871 221 / 871 Weight 95.641 kg Intake: IV 300 / 3400 200 / 200 Oral 540 / 1040 450 / 671 221 / 671 Other: Urine Color Yellow Urine Appearance Clear Clear Comment independent to bathroom Voiding Methods Toilet Data Completed and Pending Labs on day of discharge: Labs from last 24 hours 08/24/23 08/23/23 08/23/23 02:00 19:10 13:00 WBC 12.80 H RBC 4.45 Hgb 13.7 Hct 39.5 MCV 89 MCH 30.8 MCHC 34.7 RDW 12.6 Plt Count 270 MPV 10.0 Sodium 136 Potassium 4.1 3.3 L Chloride 97 L Carbon Dioxide 31.2 Anion Gap 7.8 BUN 12 Creatinine 0.8 Est GFR (CKD-EPI 2020) 96.66 Glucose 295 H Calcium 8.7 Magnesium 2.8 H Total Bilirubin 0.3 Conjugated Bilirubin 0.1 AST 13 L ALT 17 Alkaline Phosphatase 92 Total Protein 6.8 Albumin 3.0 L Procalcitonin < 0.1 Add-On Test Request DONE Preliminary micro results at discharge 08/23/23 07:10 Blood Culture - Preliminary Blood NO GROWTH 24 HOURS 08/23/23 06:55 Blood Culture - Preliminary Blood NO GROWTH 24 HOURS PFSH All Active Problems Abnormal CT of the abdomen (Acute) Gallbladder sludge (Acute) Diabetic foot ulcer (Acute) Intractable nausea and vomiting (Acute) Dehydration (Acute) Ulcer of left foot with fat layer exposed (Acute) Osteomyelitis of left foot (Acute) DVT (deep venous thrombosis) (Chronic) Cellulitis of foot, left (Acute) Corns and callosities (Acute) Leukocytosis (Acute) Hypomagnesemia (Acute) Chronic nausea (Acute) Calf pain (Acute) Cellulitis of foot (Acute) Diabetic toe ulcer (Acute) Abscess (Acute) Vomiting (Acute) Gastroparesis (Chronic) IDDM (insulin dependent diabetes mellitus) (Chronic) Tobacco abuse (Acute) Cannabinoid hyperemesis syndrome (Acute) Upper GI bleeding (Acute) UTI (urinary tract infection) (Acute) Hypokalemia (Acute) Type 2 diabetes mellitus with diabetic neuropathy (Chronic) Ulcer of other part of foot (Acute) Amputation of toe of left foot (Acute) Infection of toe (Acute) Osteomyelitis (Acute) Medical History Ulcerative esophagitis Peripheral neuropathy History of osteomyelitis IBS (irritable bowel syndrome) History of kidney stones Chest pain r/t Anxiety Back pain Cellulitis of third toe, left Type 2 diabetes mellitus History of cellulitis toe Suicide attempt Anxiety and depression Diabetic neuropathy Diabetes Type 1, per patient she said she was told she had diabetes type 2. 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 Maternal Cousin Breast cancer Maternal Cousin Breast cancer Maternal Cousin Breast cancer Social History Smoking/Tobacco Use Status: Current every day Tobacco Type: cigarettes Smoking risk assessment performed?: Yes Alcohol Intake: current Alcohol Intake frequency: holidays/special occasions only Drug use: Daily Substance use type: marijuana Details: last marijuana was last week Housing: house Do you feel safe at home: Yes Do you feel safe in your relationship?: Yes Time Spent with Patient Time Spent with Patient: 45-69 minutes Time was spent: preparing to see the patient(eg.review tests), obtaining and/or reviewing separately otained hiistory, ordering medications,tests, procedures, referring, communicating with other health child care lead teacher, indepentently interpreting results and counseling the patient
--- NOTE | 2023-08-24 14:35 | CMDISCH_ITS ---
Date of service: 08/24/23 Time of Service: 14:36 LACE Index Scoring Tool Questions: Length of Stay (in days): 1 Was the patient admitted via the E.D.?: Yes Comorbidities: Diabetes w/o Complication E.D. Visits: 6 Answers: Total Score: 9 Risk of Readmission: Low Risk Care Management Discharge Plan Reason for Hospitalization: dehydration Discharge Plan: Cristy will be discharged home with no new services. She will follow up with her PCP and plan of care and transport with family. Patient/Family Education Needs: Review of discharge instructions, activity, limitations, follow up plan, discuss Ask Me Three [facility] Health Related Social Needs: No Data to Display
--- NOTE | 2023-08-25 12:24 | NUR.NOTE ---
Accessed chart to reconcile EKG orders with EKG's in [facility]. Nursing Note:
== END 2023-08-24 16:37 | disposition home or self-care (01) ==
LOC: ER 05:24 → MS 05:26
PROVIDERS: General Practice; Nurse Practitioner Acute Care; Admitting Provider Family Medicine; Emergency Provider Student in an Organized Health Care Education/Training Program; PCP Internal Medicine; Visit Provider Family Medicine
DX: E86.0 Dehydration (principal); R11.2 Nausea with vomiting, unspecified; E87.6 Hypokalemia; L03.116 Cellulitis of left lower limb; E11.621 Type 2 diabetes mellitus with foot ulcer; E11.65 Type 2 diabetes mellitus with hyperglycemia; E11.42 Type 2 diabetes mellitus with diabetic polyneuropathy; E11.43 Type 2 diabetes mellitus with diabetic autonomic (poly)neuropathy; K31.84 Gastroparesis; L97.521 Non-pressure chronic ulcer of other part of left foot limited to breakdown of skin; Z79.4 Long term (current) use of insulin; F41.9 Anxiety disorder, unspecified; K58.8 Other irritable bowel syndrome; F32.9 Major depressive disorder, single episode, unspecified; R93.5 Abnormal findings on diagnostic imaging of other abdominal regions, including retroperitoneum; K82.8 Other specified diseases of gallbladder; Z79.899 Other long term (current) drug therapy; Z89.422 Acquired absence of other left toe(s); D72.829 Elevated white blood cell count, unspecified; R00.0 Tachycardia, unspecified; F17.210 Nicotine dependence, cigarettes, uncomplicated; R50.9 Fever, unspecified; Z89.412 Acquired absence of left great toe
CPT/HCPCS: 00123; 36410; 36416; 80048; 80053; 80076; 82805; 82962; 83690; 84145; 85027; 87040; 93005; 96361; 96365; 96366; 96367; 96372; 96375; 96376; 99285; J1650; 73630; 73720; 74176; 76705; 81003; 81015; 83735; 84132; 84443; 85025; 85610; 85730; 93010; 99223; 99239; G0378; J1815; J2405; J2470; J2765; J3475; J3480

== ENCOUNTER → 2023-09-08 11:29 | Outpatient (CLI) | payer BC, SELFPAY ==
--- NOTE | 2023-09-08 11:50 | DI.RAD_ITS ---
Exam(s) XR FOOT LT COMPLETE EXAM: XR FOOT LT COMPLETE CLINICAL HISTORY: E11.621, L97.521,M86.9, suspect of osteomyelitis to 1st met-head (ulcer),. TECHNIQUE: 2D digital imaging was performed. Three views. COMPARISON: CR XR FOOT LT COMPLETE from 08/24/2023 MR MR LOWER EXTREMITY LT WO/W from 08/24/2023 FINDINGS: BONES: No acute fracture is present. No bony destructive lesion is seen. Prominent plantar calcaneal spur. Indications of the 1st and 2nd toes. Mutation of the distal phalanx of the 3rd toe. JOINTS: No dislocation present. SOFT TISSUE: Swelling around area 1st metatarsal head. IMPRESSION: No plain film evidence of osteomyelitis. DATA REPOSITORY: RADIATION DOSE DELIVERED:
== END ==
PROVIDERS: PCP Internal Medicine; Visit Provider Podiatrist
DX: M86.8X7 Other osteomyelitis, ankle and foot; E11.621 Type 2 diabetes mellitus with foot ulcer; L97.521 Non-pressure chronic ulcer of other part of left foot limited to breakdown of skin
CPT/HCPCS: 73630

== ENCOUNTER 2023-11-09 08:56 | Outpatient (REF) | payer BC, SELFPAY | END 2023-11-09 08:57 | disposition home or self-care (01) | LOC: LBN 08:56 | PROVIDERS: PCP Internal Medicine; Visit Provider Podiatrist | DX: L97.522 Non-pressure chronic ulcer of other part of left foot with fat layer exposed (principal) | CPT/HCPCS: 87077; 87070; 87075; 87186; 87205 ==

== ENCOUNTER → 2023-11-30 01:11 | Outpatient (CLI) | payer BC, SELFPAY ==
--- NOTE | 2023-11-30 10:25 | DI.RAD_ITS ---
Exam(s) XR FOOT LT COMPLETE EXAM: XR FOOT LT COMPLETE CLINICAL HISTORY: ? OM First metatarsal head/sesamoid.M86.9. TECHNIQUE: 2D digital imaging was performed. Three views. COMPARISON: CR XR FOOT LT COMPLETE from 09/08/2023 FINDINGS: Amputation of the 1st and 2nd toes and portion of the 3rd toe again noted, unchanged. No bony erosio ns. No abnormal gas in the soft tissues. IMPRESSION: No plain film evidence of osteomyelitis. DATA REPOSITORY: RADIATION DOSE DELIVERED:
== END ==
PROVIDERS: PCP Internal Medicine; Visit Provider Podiatrist
DX: M86.9 Osteomyelitis, unspecified (principal)
CPT/HCPCS: 73630

== ENCOUNTER → 2023-12-16 00:16 | Outpatient (CLI) | payer BC, SELFPAY ==
--- OUTSIDE RECORDS SUMMARY | 2023-12-16 00:31 | XMS_ITS | Encounter Summary ---
Author Organization [facility] Address [address] [place] [address] Care Team Providers Care Digital Marketer Name Role Phone Carrington Calderon MD Primary Care Provi anders Abigail Díaz Unavailable [phone] Carmelo Hendrickson Unavailable Unavailable Encounter Details Date Type Department Care Team (Late st Contact Info) Description 12/14/2023 Patient Outreach [facility] Adult Primary Care - [place] [address] [place], [place] [phone] Carmelo Hendrickson Social History Tobacco Use Types Packs/Day Years Used Date Smoking Tobacco: Every Day Cigarettes 0.5 13.1 Started: 11/10/2010 Smokeless Tobacco: Never Comments:06/13/20 actively try ing to quit about 5-8 cigs/day Alcohol Use Standard Drinks/Week Comments Yes 0 (1 standard drink = 0.6 oz pur e alcohol) rarely C Utilities Answer Date Recorded In the past 12 months has [employer], gas, oil, or water [employer] threatened to shut off services in your home? No 11/15/2023 AUDIT-C Answer Date Recorded Q1: How often do you have a drink containing alc ohol? Monthly or less 11/20/2020 Q2: How many drinks containi ng alcohol do you have on a typical day when you are drinking? 1 or 2 11/20/2020 Q3: How often do you have si x or more drinks on one occasion? Never 11/20/2020 Overall Financial Resource Strain (CARDIA) Answe r Date Recorded How hard is it for you to pa y for the very basics like food, housing, medical care, and heating? Hard 11/15/2023 PHQ-2 Answer Date Recorded PHQ-2 SUBTOTAL 2 06/14/2023 Exercise Vital Sign Answer Date Recorde d On average, how many days pe r week do you engage in moderate to strenuous exercise (like a brisk walk)? 3 days 11/15/2023 On average, how many minutes do you engage in exercise at this level? 30 min 11/15/2023 Hunger Vital Sign Answer Date Recorded Within the past 12 months, y ou worried that your food would run out before you got the money to buy more. Never true 11/15/19 24 Within the past 12 months, t he food you bought just didn't last and you didn't have money to get more. Never true 11/15/2023 PRAPARE - Transportation Answer Date Re corded In the past 12 months, has l ack of transportation kept you from medical appointments or from getting medications? No 11/04 In the past 12 months, has l ack of transportation kept you from meetings, work, or from getting things needed for daily living? No 11/15/2023 Housing Stability Vital Sign Answer Norm e Recorded In the last 12 months, was t here a time when you were not able to pay the mortgage or rent on time? No 06/14/2023 In the last 12 months, how many places have you lived? 1 06/14/2023 In the last 12 months, was t here a time when you did not have a steady place to sleep or slept in a correction (including now)? No 06/14/2023 Housing Stability Vital Sign Answer Norm e Recorded In the last 12 months, was t here a time when you were not able to pay the mortgage or rent on time? No 11/15/2023 In the past 12 months, how m any times have you moved where you were living? 1 11/15/2023 At any time in the past 12 m [facility], were you homeless or living in a correction (including now)? No 11/15/2023 Interpersonal Safety Answer Date Record ed How often does anyone, inclu ding family, hit, punch or physically hurt you? 11/15/2023 How often does anyone, inclu ding family, insult, scream, curse or threaten to hurt you? 11/15/2023 Sex and Gender Information Value Date Recorded Sex Assigned at Not on file Gender Identity Female 06/18/2019 8:54 EST Sexual Orientation Not on file documented as of this encounter Functional Status Functional Status Response Date of Assess ment Are you deaf or do you have serious difficulty h earing? No 10/02/2020 Are you blind or do you have serious difficulty seeing, even when wearing glasses? No 10/02/2020 Do you have serious difficul ty walking or climbing stairs? (5 years old or older) No 10/02/2020 Do you have difficulty dress ing or bathing? (5 years old or older) No 10/02/2020 Because of a physical, menta l, or emotional condition, do you have difficulty doing errands alone such as visiting a doctor's office or shopping? (15 years old or older) No 10/02/2020 Cognitive Status Response Date of Assessm ent Because of a physical, menta l, or emotional condition, do you have serious difficulty concentrating, remembering, or making decisions? (5 years old or older) No 10/02/2020 documented as of this encounter Progress Notes * Carmelo Hendrickson - 12/14/2023 1234 EDT [facility] Transporter Driver Follow-up Note Encounter type: Telephone Notes: RC called Stella to follow up again and RC left a voicemail for Stella. Plan / Action Items: RC will send letter to Stella to see if further outreach is desired. RC will follow up in 1 month. Carmelo Hendrickson 12/14/23 12:34 documented in this encounter Plan of Treatment Upcoming Encounters Date Type Department Care Team (Late st Contact Info) Description 02/21/2024 9:45 EDT Office Visit [facility] Adult Primary Care [address] [phone] Carrington Caldreon MD 1 [facility] [address] [place] [phone] 02/27/2024 8:30 EDT Telemedicine [facility] Sleep Program - [address] [phone] Rn, Sleep 02/29/2024 10:30 EDT Appointment [facility] Radiology Nuclear Medicine and PET - [address] [address] 02/29/2024 14:30 EDT Appointment [facility] Radiology Nuclear Medicine and PET - [address] [id number] 03/01/2024 8:00 EDT Appointment [facility] Radiology Nuclear Medicine and PET [address] [phone] 03/01/2024 9:30 EDT Appointment [facility] Radiology Nuclear Medicine and PET [address] [address] documented as of this encounter Visit Diagnoses Not on filedocumented in this encounter Care Teams Digital Marketer Relationship Specialty Start Date End Date Carrington Calderon MD [address] [place] [phone] PCP - General Internal Medicine - Primary Care 12/09/20 Abigail Díaz Genetic Scientist 04/21/23 Carmelo Hendrickson Coordinator 12/01/23 documented as of this encounter
--- OUTSIDE RECORDS SUMMARY | 2023-12-16 00:31 | XMS_ITS | Encounter Summary ---
Author Organization [facility] Address [address] [place] [address] Care Team Providers Care Buckle Stapler Name Role Phone Carrington Calderon MD Primary Care Provi anders Abigail Díaz Unavailable Carmelo Hendrickson Unavailable Unavailable Encounter Details Date Type Department Care Team (Late st Contact Info) Description 12/09/2023 Orders Only [facility] Radiology - [place] [address] [place], [place] [phone] Teresita Fitzpatrick MD [address] [place] [address] Social History Tobacco Use Types Packs/Day Years Used Date Smoking Tobacco: Every Day Cigarettes 0.5 13.1 Started: 11/10/2010 Smokeless Tobacco: Never Comments:06/13/20 actively try ing to quit about 5-8 cigs/day Alcohol Use Standard Drinks/Week Comments Yes 0 (1 standard drink = 0.6 oz pur e alcohol) rarely C Utilities Answer Date Recorded In the past 12 months has [employer], gas, oil, or water company threatened to shut off services in your [...] place to sleep or slept in a halfway (including now)? No 06/14/2023 Housing Stability Vital Sign Answer Norm e Recorded In the last 12 months, was t here a time when you were not able to pay the mortgage or rent on time? No 11/15/2023 In the past 12 months, how m any times have you moved where you were living? 1 11/15/2023 At any time in the past 12 m [facility], were you homeless or living in a halfway (including now)? No 11/15/2023 Interpersonal Safety Answer Date Record ed How often does anyone, audrey waldron family, hit, punch or physically hurt you? 11/15/2023 How often does anyone, audrey waldron family, insult, scream, curse or threaten to [...] No 10/02/2020 documented as of this encounter Plan of Treatment Upcoming Encounters Date Type Department Care Team (Late st Contact Info) Description 02/21/2024 9:45 EDT Office Visit [facility] Adult Primary Care - [address] [phone] Carrington Calderon MD [address] [phone] 02/27/2024 8:30 EDT Telemedicine [facility] Sleep Program - [address] [phone] Rn, Sleep 02/29/2024 10:30 EDT Appointment [facility] Radiology Nuclear Medicine and PET - [address] [phone] 02/29/2024 14:30 EDT Appointment [facility] Radiology Nuclear Medicine and PET - [address] [address] 03/01/2024 8:00 EDT Appointment [facility] Radiology Nuclear Medicine and PET - [address] [address] 03/01/2024 9:30 EDT Appointment [facility] Radiology Nuclear Medicine and PET - [address] [address] documented as of this encounter Visit Diagnoses Not on filedocumented in this encounter Care Teams Buckle Stapler Relationship Specialty Start Date End Date Carrington Calderon MD 1 [facility] [address] [place] [phone] PCP - General Internal Medicine - Primary Care 12/09/20 Abigail Díaz Supervisor [employer]ing [employer] 04/21/23 Carmelo Hendrickson Coordinator 12/01/23 documented as of this encounter
--- OUTSIDE RECORDS SUMMARY | 2023-12-16 00:31 | XMS_ITS | Referral Summary ---
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 Name Role Phone Carrington Calderon MD Primary Care Provi anders Abigail Díaz Unavailable Carmelo Hendrickson Unavailable Unavailable Encounters Date Type Department Care Team Description 12/14/2023 Patient Outreach [facility] [address] [place] [address] Carmelo Hendrickson 12/09/2023 Orders Only [facility] - Main [place] [address] [place] [address] Teresita Fitzpatrick MD 12/07/2023 Patient Outreach [facility] Primary [facility] [address] [place] [address] Carmelo Hendrickson 12/02/2023 Patient Outreach [facility] [address] [place] [address] Carmelo Hendrickson 12/02/2023 Patient Outreach [facility] [address] [place] [address] Abigail Díaz 12/01/2023 Patient Outreach [facility] [address] [place] [address] Carmelo Hendrickson 12/01/2023 15:45 EDT Office Visit [address] [address] Nimisha Clifton NP Neuropathic diabetic ulcer of foot (HCC-CMS) (Primary Dx); Pre-op exam 11/22/[address] [address] Carrington Calderon MD Results 11/18/2023 Community Health Team [address] [address] Care Management, [facility] 11/16/2023 11:00 EDT Telemedicine [facility] Gastroenterology - [address] [address] Scott Arzate MD Cyclic vomiting syndrome (Primary Dx) 11/15/2023 Patient Outreach [address] [address] Abigail Díaz Encounter for screening involving social determinants of health (SDoH) (Primary Dx) 11/11/2023 13:30 EDT Phlebotomy Only [facility] - [address] [address] 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, [facility] Abnormal thyroid blood test; Encounter for screening for other viral diseases 11/11/2023 13:00 EDT Office Visit [address] [address] Carrington Calderon MD Type 2 diabetes mellitus with diabetic polyneuropathy, with long-term current use of insulin (HCC-CMS) (HCC) (Primary Dx); Migraine with aura and without status migrainosus, not intractable; Anxiety and depression; Cyclic vomiting syndrome; Diabetic ulcer of left midfoot associated with type 2 diabetes mellitus, limited to breakdown of skin (HCC-CMS); Primary insomnia; Abnormal thyroid blood test; Encounter for screening for other viral diseases; Primary hypertension; Subclinical hyperthyroidism from Last 3 Months Allergies Active Allergy Reactions Criticality Noted Date Comments Ibuprofen Hives 02/16/2010 Citalopram Other (See Comments) Medium 09/03/2015 suicidal ideation, approx 2013 Other - See Comments Swelling of throat Medium 020 pomergrante Medications Medication Sig Dispensed Refills Start Date End Date Status acetaminophen (TYLENOL) 325 mg tablet Take 2 Tabs by mouth every 4 hours as needed for Pain. 08/20/2020 Active lidocaine 5 % (LIDODERM) 5 % patchIndications:Ch ronic midline low back pain without sciatica Place 1 Patch onto the skin daily. Patch(es) may remain in place for up to 12 hours in any 24-hour period. 30 Patch 2 09/02/2022 Active omeprazole (PRILOSEC) 20 mg capsuleIndications: Gastroparesis Take 1 Capsule by mouth daily. 90 Capsule 3 12/17/2022 Active prochlorperazine (COMPAZINE) 25 mg suppositoryIndicati ons:Cyclic vomiting syndrome Place 1 Suppository rectally every 12 hours as needed for Nausea. 6 Suppository 11 12/17/2022 Active prochlorperazine (COMPAZINE) 10 mg tabletIndications:C yclic vomiting syndrome Take 1 Tablet by mouth every 8 hours as needed for Nausea. 8 Tablet 11 12/17/2022 Active ZOLMitriptan (ZOMIG) 2.5 mg tabletIndications:C atamenial disorder,Migraine with aura and without status migrainosus, not intractable,Cyclic vomiting syndrome Take 1 Tablet by mouth 2 times daily. BID starting 2 days prior to onset of menses, continuing for a total of 5 days (10 doses) 10 Tablet 11 12/17/2022 Active DULoxetine 40 mg capsule,delayed release(DR/EC)Indic ations:Anxiety and depression Take 40 mg by mouth daily. 30 Capsule 11 12/17/2022 Active Blood-Glucose Sensor (DEXCOM G6 SENSOR) deviceIndications:T ype 2 diabetes mellitus with diabetic polyneuropathy, with long-term current use of insulin ([facility]) Inject 1 Each into the skin every 10 days. 9 Each 4 03/16/2023 Active LORazepam (ATIVAN) 0.5 mg tabletIndications:A nxiety Take 1 Tablet by mouth daily as needed for Anxiety. Daily Max: 0.5 mg 30 Tablet 3 06/27/2023 Active ondansetron (ZOFRAN-ODT) 4 mg disintegrating tabletIndications:C yclic vomiting syndrome Take 1 Tablet by mouth every 8 hours as needed for Nausea. 30 Tablet 11 06/27/2023 Active traMADol (ULTRAM) 50 mg tabletIndications:C hronic midline low back pain without sciatica Take 1 Tablet by mouth every 6 hours as needed for Pain. Daily Max: 200 mg 30 Tablet 06/27/2023 Active insulin glargine (LANTUS SOLOSTAR/SEMGLEE) 100 unit/mL (3 mL) injection penIndications:Type 2 diabetes mellitus with diabetic polyneuropathy, with long-term current use of insulin ([facility]) Inject 44 Units into the skin at bedtime. 36 mL 06/27/2023 Active empagliflozin (JARDIANCE) 25 mg tabletIndications:T ype 2 diabetes mellitus with diabetic polyneuropathy, with long-term current use of insulin ([facility]) Take 1 Tablet by mouth daily. 90 Tablet 06/27/2023 Active SITagliptin phosphate (JANUVIA) 100 mg tabletIndications:T ype 2 diabetes mellitus with diabetic polyneuropathy, with long-term current use of insulin ([facility]) Take 1 Tablet by mouth daily. 90 Tablet 06/27/2023 Active metoclopramide HCl (REGLAN) 10 mg tablet Take 1 Tablet by mouth 3 times daily before meals. Starting 3 days before menses and stopping after end of period 270 Tablet 3 06/27/2023 Active gabapentin (NEURONTIN) 300 mg capsuleIndications: Diabetic polyneuropathy associated with type 2 diabetes mellitus ([facility]) Take 1 Capsule by mouth every morning AND 4 Capsules at bedtime. 450 Capsule 06/27/2023 Active SUMAtriptan (IMITREX) 20 mg/actuation nasal spray USE 1 SPRAY(S) INTO RIGHT NOSTRIL NEEDED FOR MIGRAINE HEADACHE 6 Each 06/29/2023 Active Blood-Glucose Transmitter (zandaCOM G6 TRANSMITTER) deviceIndications:T ype 2 diabetes mellitus with diabetic polyneuropathy, with long-term current use of insulin ([facility]) Inject 1 Each into the skin every 3 months. 1 Each 07/07/2023 Active HUMALOG KWIKPEN INSULIN 100 unit/mL injectable penIndications:Type 2 diabetes mellitus with diabetic polyneuropathy, with long-term current use of insulin ([facility]) 8 units with breakfast, 15 units with lunch/dinner 30 mL 11 11/11/2023 Active traZODone (DESYREL) 50 mg tabletIndications:P rimary insomnia Take 1 Tablet by mouth at bedtime. 30 Tablet 4 11/11/2023 Active Hospital, Clinic, or Other Facility Administered Medication Ordered Dose Route Frequency Start Date End Date Status levonorgestreL (MIRENA) 21 mcg/24 hours (8 yrs) 52 mg IUD 1 Each 1 Each INTRAUTERINE CONTINUOUS IUD/LARC 08/05/2023 1 Active Active Problems Patient Care Coordination No te Formatting of this note migh t be different from the original. MFM okay for partner to attend visit on 06/19 Patient has given permission for [facility] to verbally discuss the following information with Fermin Luo who has the following relationship to the patient: Spouse/Partner: Scheduling/Appt/Billing/Payment Information (does not include clinical information unless specifically indicated with separate option) Medical Information including symptoms, diagnosis, medications, test results and treatment plan (does not include Mental Health unless specifically indicated with separate option) Mental Health (Behavioral,Psychiatric,Chemical Dependency) health information, including my symptoms, diagnosis, medications and treatment plan Permission remains in effect until the patient elects to revoke it. Confirmed patient has Traditional Medicaid now. TCN: [id number] Category: P2 Garfield Healy 06/10/2020 19:11 Problem Noted Date Diagnosed Date Tobacco use 12/21/2021 Skin infection 12/21/2021 Pannus, abdominal 12/21/2021 Overview: - as of 01/2022, does not meet criteria for surgical intervention (see 01/29/22 note) Neuropathic diabetic ulcer of foot ([facility]) Gastroparesis 08/10/2020 Overview: - Confirmed on gastric emptying study in 09/2020 -Symptoms reduced from nearly 50% of the time to once every couple of months with addition of daily metoclopramide, avoidance of dietary triggers. - Recommended increasing metoclopramide to TID at symptom recurrence, seek care if persistent N/V x 24+ hours 06/2021 Type 2 diabetes mellitus wit h diabetic polyneuropathy, with long-term current use of insulin ([facility]) 06/05/2020 Overview: - Dx approx age 25, possible mixed physiology (type I/II) - intolerant of MFM (diarrhea) - GLP-1 RA not an option with recurrent gastroparesis Chronic midline low back pain without sciatica 0 11/26/2019 Overview: - Midline low back, no radiation, no response to PT Chronic left ear pain 09/04/2015 Family history of rheumatoid arthritis 6 Overview: Mother, pt with chronic back pain. Told arthritis in spine in teen yrs. Anxiety and depression 05/12/2010 Overview: - Onset teen yrs. Treated with citalopram in approx 2012 - had SI, treated at [facility]. Marijuana prn to help with stress/anxiety sx -Describes paradoxical effect of citalopram, reportedly resulting in the above admission at [facility] Migraine with aura and witho ut status migrainosus, not intractable Overview: Dx approx age 15. Average 2/ month. Chronic left ear ?trigger. Migraine with aura - pt experiences shooting stars mins before onset of leon every time. Resolved Problems Problem Noted Date Diagnosed Date Resolved Date Vomiting 10/03/2020 06/11/2021 Intractable vomiting 10/02/2020 022 Dehydration 08/10/2020 08/10/2020 Abdominal pain 08/09/2020 08/10/2020 Generalized abdominal pain 08/09/2020 0 08/10/2020 Emesis, persistent 08/09/2020 Admission for sterilization 06/27/2020 06/11/2021 Overview: Added automatically from request for surgery [id number] of unknown anatomic location 06/20/2020 06/27/2020 Overview: Clinical Group: MFM Patient HPI: Cristy Luo is an 35 y.o. , patient with history of ectopic and positive HCG during post operative period for unrelated procedure. Reported cramping to [facility] nurse on 06/19. LMP: End of the first week of May Rh status: B- Rhogam: Given by [facility] 06/20/20 Desired : Unknown Ectopic risk factors: hx of ectopic pregnancies and five D&C's . 10/2018: Interstitial treated w/ MTX. HCGs Lab Results Component Value Date HCGPREG 49 (H) 06/25/2020 HCGPREG 111 (H) 06/23/2020 HCGPREG 152 (H) 06/21/2020 HCGPREG 108 (H) 06/19/2020 HCGPREG 2,954 (H) 10/11/2019 HCGPREG 707 (H) 09/02/2019 HCGPREG 316 (H) 08/31/2019 Plan: 06/20/2020: US today and given RhoGham by [facility]. Place in BB per MD Esteban Cade. - Rosa Salazar RN 06/20/20: U/S results: There is no visualized gestational sac either in the uterus or in the adnexa, nor extrauterine mass.The patient does have a hx of a prior interstitial , and there is heterogeneous tissue extending towards the interstitium from the uterine cavity.Clinical correlation is suggested with serial hCG and consider a repeat scan in 5 days and as clinical hx allows.The adnexa appear normal. PLAN: per Dr. Kenyon, repeat HCG 48h (06/21), repeat U/S in 5 days (06/25), give ectopic precautions. Plan (HCG 06/21, U/S 06/25 @ 11am), precautions & contact #'s give to Liz. Suyapa RN 06/23/20: ED today for VB, U/S essentially the same, Plan per Azucena Mederos & Chantale: repeat HCG 06/25 & U/S 06/25 in [facility]. MARCELO Dale 06/25/20: U/S results - 1. of unknown location with findings that are highly suggestive of a failed intrauterine which appears to be passing. There is an area of echogenic and heterogenous material within the uterine cavity which is consistent with material which is being passed. This material is now in the upper cavity and no longer in the angle toward the interstitium. 2. Both ovaries are normal with corpus luteum on the right. 3. No free fluid in cul de sac. PLAN: per Azucena Bran & Felicita - home UPT on Tuesday, if positive then HCG. Results & plan discussed with Stella. MARCELO Dale 06/27/20: Negative home UPT this am, pain & VB improved. Per Dr. Kenyon: no f/u needed, resolve problem & remove from Beta Book. MARCELO Dale Hx of ectopic 06/20/202011/2021 Osteomyelitis of toe of left foot 06/05/2020 06/11/2021 Overview: Added automatically from request for surgery [id number] Type 2 diabetes mellitus wit h left diabetic foot ulcer ([facility]) 05/03/2020 03/27/2021 Osteomyelitis of great toe o f left foot ([facility]) 03/12/2020 06/11/2021 Diabetic foot ulcer associat ed with diabetes mellitus due to underlying condition ([facility]) 03/07/2020 03/27/2021 Diabetic foot infection ([facility]) 03/06/2020 06/11/2021 Diabetic foot ulcer ([facility]) 03/06/2020 06/11/2021 Cellulitis of great toe of left foot 11/26/2019 06/11/2021 Encounter for sterilization 11/20/2019 06/20/2020 Overview: Added automatically from request for surgery [id number] Missed 10/12/2019 10/15/2019 Overview: Clinical Group: ED / UOM HPI: Cristy Luo is an 34 y.o. , presented to the ED with VB, prior US on 09/17/19 with pole and FHR measuring 6+0 (although by LMP would have been 8+3), now with US showing empty gestational sac at 9+4 by prior US dating. LMP: 07/20/19 Rh status: neg Rhogam? Given 10/02 Desired ? Y/N Ectopic risk factors: prior ectopic s/p MTX HCGs Lab Results Component Value Date HCGPREG 2,954 (H) 10/11/2019 HCGPREG 707 (H) 09/02/2019 HCGPREG 316 (H) 08/31/2019 Plan: Patient to discuss expectant mngmt, medication, surgical mngmt with . [ ] RN check in on 10/11- Debi vs. Beta-book RN. 10/12/19: Per Nurse Aiden patient would like in office procedure kimberly & CReid Wolfe is working on scheduling procedure---> procedure scheduled today (10/11) with Dr. Martínez.. Suyapa, MARCELO 10/15/2019 Call to check in with patient just to make sure she is feeling well and then can remove from beta book (sac seen during procedure, no pathology necessary). Nishant Oropeza 10/15/19: Spoke with Catherine, doing well, she is connected to & she will call for talk Appt.. MARCELO Dale with type 2 diabet es mellitus in first trimester 10/01/2019 11/02/2019 Overview: 1. T2DM Datin05/12/2020, by Ultrasound, Patient's last menstrual period was 05/30/2019 (exact date)., not consistent with 6w0d scan labs: Ordered and pending Lab Results Component Value Date BTYP B NEG 02/11/2015 LABANTI Positive 08/31/2015 WBC 10.84 06/18/2019 HGB 14.1 06/18/2019 HCT 40.9 06/18/2019 MCV 89 06/18/2019 PLT 349 06/18/2019 CULTRESULT 11/21/2018 Mod STREPTOCOCCUS, BETA HEMOLYTIC GROUP A (STREPTOCOCCUS PYOGENES) Infection hx: Pap: -/NGCT needs/UCx ordered Screening: CF undecided/Aneuploidy pending Diabetic profile Baseline PreE labs: ordered and pending Lab Results Component Value Date BUN 10 06/18/2019 CREATININE 0.43 (L) 06/18/2019 Lab Results Component Value Date WBC 10.84 06/18/2019 HGB 14.1 06/18/2019 HCT 40.9 06/18/2019 MCV 89 06/18/2019 PLT 349 06/18/2019 Lab Results Component Value Date ALT 22 10/26/2018 AST 14 (L) 10/26/2018 No PCR results found No results found for: [id number] HgA1c [ ] 1T pending [ ] 2T [ ] 3T Fructosamine [ ] 1T pending [ ] 2T [ ] 3T [ ] Optho - Discussed 10/01/19, needs [ ] ASA for preeclampsia prophylaxis - not using due to ibuprofen allergy, description suggestive of anaphylaxis [ ] Flu vax (Apr-October) [ ] 3T TDaP [ ] Early anatomy scan: ordered 10/01/19 [ ] Anatomy scan: needs detailed [ ] echo: need to order [ ] 3T CBC [ ] Rhogam (28w) needed [ ] Growth US [ ] 28w [ ] 32w [ ] 36w [ ] GBS (PCN non-allergic) [ ] HSV ppx? - patient denies history [ ] Contraception Last Assessment & Plan: - We began by discussing the risks of diabetes in . Women with poorly controlled diabetes have an increased risk of miscarriage and increased risk of congenital anomaly, particularly cardiac and neural tube defects, related to the degree of glycemic control. I have prescribed supplemental folic acid 4 mg daily to reduce risk of NTD. Therefore we will plan for a first trimester anatomic survey at 11-13 weeks, detailed anatomy ultrasound at 20 weeks and a echocardiogram at 24 weeks. - Beyond the first trimester, we briefly discussed the implications of poor glycemic control on the . Women with poorly controlled diabetes are at an increased risk of stillbirth later in . We will plan for testing weekly beginning at 32 weeks. We discussed increased risk of macrosomia and associated complications including macrosomia, hypoglycemia, jaundice and trauma, including shoulder dystocia. We will plan for serial monthly growth scans beginning at 28 weeks. We will plan to address issues surrounding third trimester and delivery in more detail at upcoming visits. - We discussed the increased risk of hypertension and in particular, preeclampsia. Typically, her long-standing T2DM and obesity would prompt initiation of prophylactic aspirin according to USPTF guidelines. However, Cristy describes an allergy to Motrin that sounds consistent with anaphylaxis and has avoided aspirin for this reason. It is reasonable to not use aspirin under these circumstances. I have ordered baseline labs including CBC, LFTs, creatinine and 24 hr urine protein to evaluate for underlying nephropathy and establish baseline for future diagnosis. - We discussed the importance of diabetic eye exam. Poor control is associated with proliferative retinopathy. It is believed that tight control will prevent the onset or worsening of retinopathy which has been noted in poorly controlled diabetics during . Paradoxically, during the rapid correction of poorly controlled diabetes is associated with a worsening of retinopathy. We recommended that she schedule an eye exam in the near future. - Her current regimen is Lantus 15 units qhs and metformin 500 mg bid. She describes elevated fastings and pre-prandial glucose levels, not checked consistently, although her highest reported pre-prandial is in the 170s. We reviewed targets for fasting <95 and 2 hr post-prandial <120 and testing recommendations. She will call twice weekly with glucose logs to allow us to quickly optimize her regimen. - Nutrition consult ordered. - HgBA1c and fructosamine ordered with labs. 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 APLS work-up with [facility] was apparently deferred until her comorbid conditions were optimized. Certainly her elevated A1c is her greatest risk factor for miscarriage. However, additional work-up for recurrent loss would be warranted if the current were to conclude in miscarriage. Rh negative status during 10/01/2019 11/02/2019 Last Assessment & Plan: - Precautions for vaginal bleeding reviewed, and reviewed need for Rhogam in the setting of bleeding or miscarriage. Obesity affecting in first trimester 10/01/2019 11/02/2019 High-risk in first trimester 10/01/2019 11/02/2019 Overview: Global updated under problem diabetes. Last Assessment & Plan: - Reviewed MFM group practice and clinic flow. - labs ordered today. - Desires cell free DNA, prior auth submitted today. Undecided on CF/SMA testing. - Patient reports normal Paps but unclear when last performed, will likely need at next visit. Ectopic 10/25/2018 10/12/2019 Overview: Clinical Group: MFM (eg. COGS, ED patient, UOM, MFM, [facility]) HPI: Cristy Luo is an 33 y.o. , 10/14: +home UPT. 10/24: U/S @ E[facility] 10+4 by LMP, + gest/yolk/amnio sacs, no embryo, small gest sac located in right interstitial portion of myometrium & highly concerning for an early interstitial . LMP: 08/11/18 Rh status: Negative Rhogam? Given 10/26 Desired ? Highly desired Ectopic risk factors: none HCGs 10/24/2018: Quant Beta HCG, Preg 1,286 mIU/ml* (Ref range: <5 mIU/ml) 10/26/2018: Quant Beta HCG, Preg 1,531 mIU/ml* (Ref range: <5 mIU/ml) 10/29/2018: Quant Beta HCG, Preg 2,338 mIU/ml* (Ref range: <5 mIU/ml) 11/01/2018: Quant Beta HCG = 1652.8 mIU/ml @ [facility] 11/10/2018: Quant Beta HCG, Preg 1,117 mIU/ml* (Ref range: <5 mIU/ml) 11/21/18: Quant Beta HCG 299.98 mIU/mL at [facility] (ref range <2.39) 12/03/18: Quant Beta HCG, 41.94 mIU/ml at [facility] 12/13/18: Quant Beta HCG, 13.63 mIU/ml at [facility] Plan: 10/24/18: per Dr. Coronado repeat HCG 48hrs (10/26), then 1) if plateaued or rising inappropriately, given location, best to treat with MTX or 2) if rising appropriately, given high concern for interstitial , repeat u/s in one week or less. MARCELO Dale 10/26/18: Per Ivonne/Rina, MTX today. Pt received MTX and rhogam today; will return to lab on day 4 (09/29). MARCELO STOLL 10/29/18: Day 4 s/p MTX - HCG juvencio to 2338, not surprising. Will plan for Day 7 HCG on 11/01/18. Left voicemail for pt to let her know the lab results do not change plan. Deborah Saleh MD 10/29/2018 17:42 11/01/18: HCG 29% drop D4-D7. Plan per Dr. Almeida HCG weekly (next 11/08). Results & plan reviewed with Cristy, will proceed to ER for significant arm pain. MARCELO Dale 11/08/18. Call to pt. Pt states forgot to go to lab 11/08. States will go 11[facility]09/[facility] [place]/10/18: Plan per Dr. Almeida, repeat HCG in 1 week (11/17). Results & plan reviewed with Cristy. MARCELO Dale 11/21/18 Pt plans on going to [facility] today. [facility] 11/21/18. [facility]. Repeat in 1 week. Pt would like to go 11/27/18([facility]) as off from work [facility] 12/01/18: LVM for pt to repeat lab work kimberly. This was the fourth call. MARCELO WEBB 12/03/18: Per Dr. Kenyon, repeat HCG 12/10. LVM for pt with plan (count as 1st attempt). MARCELO WEBB 12/11/18: LVM (second call) re: HCG due. MARCELO Dale 12/12/18: Spoke with Cristy, she will get HCG drawn 7/9 am. NOS MFM consult, will be rescheduled. MARCELO Dale 12/15/18: Plan per Dr. Gill repeat HCG in one week (12/20), MFM CON 03/02/19. LVM for Cristy with plan. MARCELO Dale 12/25/18: Per [facility] [place] last HCG was 710, NOS for 12/20, LVM X3, letter sent, will remove from Beta Book.MARCELO Dale Spontaneous miscarriage 09/04/201510/05 Overview: 02/18, 08/19. Followed by Dr. López/[facility] in [facility] Type 2 diabetes mellitus ([facility]) 09/03/2015 06/11/2021 Overview: - Dx approx age 25, possible mixed physiology (type I/II) - intolerant of MFM (diarrhea) Immunizations Name Administration Dates Next Due Covid-19 Ad26 Vaccine (JANSS EN COVID-19) PF 0.5 ml IM (18 yrs+) 01/28/2021 Covid-19 mRNA Vaccine (MODER NA COVID-19) PF 0.5 ml IM (12 yrs+) 07/06/2021 Covid-19 mRNA-LNP Bivalent V accine (PFIZER BIVALENT VACCINE) PF 0.3 mL IM (12 yrs+) 11/17/2022 Influenza Vaccine Quad (AFLURIA) PF 0.5 ml IM (3 yrs+) 03/09/2021 Pneumococcal Conjugate Vacci ne 20-Valent (PCV20) (PREVNAR-20) 0.5 mL IM (6 wks+) 11/17/2022 Tdap Vaccine =>7YO IM 06/06/2016 Social History Tobacco Use Types Packs/Day Years Used Date Smoking Tobacco: Every Day Cigarettes 0.5 13.1 Started: 11/10/2010 Smokeless Tobacco: Never Tobacco Cessation:Ready to Q uit: Not Asked; Counseling Given: Not Answered Comments:06/13/20 actively trying to quit about 5-8 cigs/day Alcohol Use Standard Drinks/Week Comments Yes 0 (1 standard drink = 0.6 oz pur e alcohol) rarely [employer] Answer Date Recorded In the past 12 months has e [employer], gas, oil, or water [employer] threatened to shut off services in your [...] place to sleep or slept in a intermediate (including now)? No 06/14/2023 Housing Stability Vital Sign Answer Norm e Recorded In the last 12 months, was t here a time when you were not able to pay the mortgage or rent on time? No 11/15/2023 In the past 12 months, how m any times have you moved where you were living? 1 11/15/2023 At any time in the past 12 m [facility], were you homeless or living in a intermediate (including now)? No 11/15/2023 Interpersonal Safety Answer Date Record ed How often does anyone, inclu chivo family, hit, punch or physically hurt you? 11/15/2023 How often does anyone, inclnick waldron family, insult, scream, curse or threaten to hurt you? 11/15/2023 Sex and Gender Information Value Date Recorded Sex Assigned at Not on file Gender Identity Female 06/18/2019 8:54 EST Sexual Orientation Not on file Last Filed Vital Signs Vital Sign Reading Time Taken Comments Blood Pressure 136/80 12/01/2023 1545 EDT Pulse 78 12/01/2023 1545 EDT Temperature 36.9 ??C (98.4 ??F) 12/01/2023 1545 EDT Respiratory Rate 20 12/01/2023 1545 EDT Oxygen Saturation 96% 08/05/2023 1107 EST Inhaled Oxygen Concentration - - Weight 98 kg (216 lb) 12/01/2023 1545 EDT Height 164 cm (5' 4.57) 06/27/2023 1431 EST Body Mass Index 36.43 06/27/2023 1431 EST Functional Status Functional Status Response Date of [...] (5 years old or older) No 10/02/2020 Plan of Treatment Upcoming Encounters Date Type Department Care Team (Late st Contact Info) Description 02/21/2024 9:45 EDT Office Visit [facility] Adult Primary Care - [address] [phone] Carrington Calderon MD [address] [phone] 02/27/2024 8:30 EDT Telemedicine [facility] Sleep Program - [address] [phone] Rn, Sleep 02/29/2024 10:30 EDT [facility] Nuclear Medicine and PET - [place] [address] [place] [address] 02/29/2024 14:30 EDT Appointment [facility] Radiology Nuclear Medicine and [address] [address] 03/01/2024 8:00 EDT Appointment [facility] Radiology Nuclear Medicine and [address] [address] 03/01/2024 9:30 EDT Appointment [facility] Radiology Nuclear Medicine and PET [address] [address] Procedures Procedure Name Priority Date/Time Associated Diagnosis Comments T3, TOTAL Today 11/11/2023 13:53 EDT Abnormal thyroid blood test T4 FREE Today 11/11/2023 13:53 EDT Abnormal thyroid blood test HIV 1/2 ANTIGEN AND ANTIBODY, 4TH GENERATION Routine 11/11/2023 13:53 EDT Encounter for screening for other viral diseases HEPATITIS C AB W REFLEX TO HCV RNA BY PCR Routine 11/11/2023 13:53 EDT Encounter for screening for other viral diseases HEPATITIS B PROFILE Routine 11/11/2023 1 3:53 EDT Encounter for screening for other viral diseases THYROID CASCADE Routine 11/11/2023 13:53 EDT Abnormal thyroid blood test PAP TEST Routine 06/27/2023 16:00 EST Cervical cancer screening HEMOGLOBIN A1C Routine 03/14/2023 15:19 EDT Type 2 diabetes mellitus with diabetic polyneuropathy, with long-term current use of insulin (HCC-CMS) LIPID PROFILE (INCLUDES CHOLESTEROL, TRIGLYCERIDES, HDL, LDL) Routine 11/28/2019 15:56 EDT Type 2 diabetes mellitus with other specified complication, 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 ([facility]) URINE [id number] NE RATIO (ACR) Routine 11/28/2019 15:56 EDT Type 2 diabetes mellitus with other specified complication, 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 Carrington Calderon MD CHEMISTRY & BLOOD GAS ORDERABLES [facility] [address] [place] [address] * HEPATITIS C AB W REFLEX TO HCV RNA BY PCR (11/11/2023 13:53 EDT) [facility] Hep C Antibody Negative Negative 11/11/2023 17:03 EDT [facility] Blood VENOUS BLOOD / Unknown Venipuncture / Unknown 11/11/2023 13:53 EDT 11/11/2023 13:55 EDT Carrington Calderon MD CHEMISTRY & BLOOD GAS ORDERABLES [facility] [address] [place] [address] * HEPATITIS B PROFILE (11/11/2023 13:53 EDT) Pathologist [facility] Hep B Surface Ag Negative Negative 11/11/19 17:04 EDT [facility] Hep B Surface Ab, Quantitative <3.1 See Note mIU/mL 11/11/2023 17:04 EDT [facility] Comment: Reference Range for Hep B Surface Ab, Quant: Positive: >= 10.0 mIU/mL Negative: ??< 10.0 mIU/mL Patient is presumed to not be immune to infection with Hepatitis B Virus. Hep B Surface Ab, Qualitative Negative See Note 11/11/2023 17:04 EDT [facility] Comment: Reference Range for Hep B Surface Ab, Qual: Unvaccinated: ??Negative Vaccinated: ??Positive Hepatitis B Core Ab, Total Negative Negative 11/11/2023 17:04 EDT [facility] Blood VENOUS BLOOD / Unknown Venipuncture / Unknown 11/11/2023 13:53 EDT 11/11/2023 13:55 EDT Carrington Calderon MD CHEMISTRY & BLOOD GAS ORDERABLES Performing Organization Address [facility] Co de Phone Number [facility] [address] [place] [phone] * HIV 1/2 ANTIGEN AND ANTIBODY, 4TH GENERATION (11/11/2023 13:53 EDT) [facility] HIV 1 and 2 Antibody/p24 Antigen, 4th Generation Negative Negative 11/11/2023 17:04 EDT [facility] Comment:If acute HIV-1 infec tion is suspected in a high risk patient, submit plasma specimen for HIV-1 RNA quantitation test. Blood VENOUS BLOOD / Unknown Venipuncture / Unknown 11/11/2023 13:53 EDT 11/11/2023 13:55 EDT Narrative [facility] - 11/11/2023 17:04 EDT Fourth Generation assay performed on the Siemens Adcastaur XPT. Carrington Calderon MD IMMUNOLOGY AND SEROLOGY ORDERABLES Performing Organization Address [facility]/ZIP Co de Phone Number [facility] [address] [place] [phone] * T3, TOTAL (11/11/2023 13:53 EDT) T3, Total 137 97 - 169 ng/dL 11/11/2023 17:27 EDT [facility] Blood VENOUS BLOOD / Unknown Venipuncture / Unknown 11/11/2023 13:53 EDT 11/11/2023 13:55 EDT Carrington Calderon MD CHEMISTRY & BLOOD GAS ORDERABLES Performing Organization Address City/[facility]/ZIP Co de Phone Number [facility] [address] [place] [address] * T4 FREE (11/11/2023 13:53 EDT) T4, Free 1.1 0.8 - 2.2 ng/dL 11/11/2023 16:08 EDT [facility] Blood VENOUS BLOOD / Unknown Venipuncture / Unknown 11/11/2023 13:53 EDT 11/11/2023 13:55 EDT Carrington Calderon MD CHEMISTRY & BLOOD GAS ORDERABLES Performing Organization Address City/[facility]/ZIP Co de Phone Number [facility] [address] [place] [phone] * PAP TEST (06/27/2023 16:00 EST) Specimens A. Cervix and/or Endocervix , ThinPrep Imaging System with Manual Evaluation 07/13/2023 16:25 [facility] Specimen Adequacy Satisfactory for Evaluation - transformation zone component absent 07/13/2023 16:25 EST [facility] General Categorization Negative for intraepithelial lesion or malignancy 07/13/2023 16:25 [facility] Attestation . 07/13/2023 16:25 [facility] at 1625 Clinical History screening 07/13/19 16:25 [facility] HPV The result for the Human Papillomavirus (HPV) Detection-High Risk Types is Negative. No E6 or E7 mRNA is detected from HPV types 16,18,31,33,35,39 ,45,51,52,56,58,5 9,66, and 68 by chemical compounder helper mediated amplification.Lorena ting was performed on specimen [id number] and was resulted on 07/13/2023 1625 EST by JANET, LAB INSTRUMENT RESULTS IN 07/13/2023 16:25 EST [facility] Performing Lab [facility] 07/13/2023 16:25 EST [facility] Scanned Images 07/13/2023 16:25 EST [facility] Pap Test CERVIX UTERI STRUCTURE / Unknown 06/27/2023 16:00 EST 06/27/2023 16:00 EST Carrington Calderon MD PATHOLOGY O RDERABLES Performing Organization Address [facility] Co de Phone Number [facility] [address] [place] [address] * (ABNORMAL) HEMOGLOBIN A1C (03/14/2023 15:19 EDT) Hemoglobin A1c 8.3(H) <5.7 % 03/14/2023 22:02 EDT [facility] Comment: Glycemic Status References: Normal: ??<5.7% Pre-Diabetes: ??5.7% - 6.4% Diagnostic of Diabetes: ??> or = 6.5% (if confirmed) Est Avg Glucose 192 mg/dL 22:02 EDT [facility] Comment:The eAG represents t he A1c result expressed as average glucose in mg/dL. Blood VENOUS BLOOD / Unknown Venipuncture / Unknown 03/14/2023 15:19 EDT 03/14/2023 15:19 EDT Carrington Calderon MD CHEMISTRY & BLOOD GAS ORDERABLES Performing Organization Address [facility] Co de Phone Number [facility] [address] [place] [address] * (ABNORMAL) ALBUMIN, URINE (11/28/2019 15:56 EDT) Albumin, Urine 11.3 See Note mg/dL 2019 16:47 T [facility] Comment: NOTE: Reference range not established Creatinine, Urine 143.1 See Note mg/dL 11/28/2019 16:47 T [facility] Comment: NOTE: Reference range not established Lab Urine Albumin to Creatinine Ratio 79(H) <30 ug/mg Creatinine 11/28/2019 16:47 EDT [facility] Comment: Urine Albumin/Creatinine Ratio: Normal: <30 ug/mg Creatinine Moderately increased albuminuria: 30-300 ug/mg Creatinine Severley increased albuminuria: >300 ug/mg Creatinine Urine URINE SPECIMEN OBTAINED BY CLEAN CATCH PROCEDURE / Unknown Urine Collect / Unknown 11/28/2019 15:56 EDT 11/28/2019 15:56 EDT Tonja Alejandro PA-C CHEMISTRY & BLOOD GAS ORDERABLES [facility] [address] [place] [address] * LIPID PROFILE (INCLUDES CHOLESTEROL, TRIGLYCERIDES, HDL, LDL) (11/28/2019 15:56 EDT) Cholesterol 179 See Note mg/dL 11/28/2019 17:12 T [facility] Comment: Acceptable: ?<200 mg/dL Borderline High: 200-239 mg/dL High: ?> or = 240 mg/dL HDL 38 See Note mg/dL 11/28/2019 17:12 [facility] Comment: Low: ? <40 mg/dL Normal: ??40-60 mg/dL High: ?>60 mg/dL LDL, Calculated 61 See Note mg/dL 11/28/2019 17:12 [facility] Comment: Optimal: ? <100 mg/dL Near Optimal: ?100-129 mg/dL Borderline High: 130-159 mg/dL High: ?160-189 mg/dL Very High: ? > or = 190 mg/dL Triglyceride 398 See Note mg/dL 11/28/2019 17:12 EDT [facility] Comment: Normal: ? <150 mg/dL Borderline High: ??150 - 199 mg/dL High: ? 200 - 499 mg/dL Very High: ?> or = 500 mg/dL Chol/HDL Ratio 4.7 See Note 11/28/2019 17:12 EDT [facility] Comment: No reference range has been established for CHOL/HDL ratio. Non HDL Cholesterol 141 See Note mg/dL 11/28/2019 17:12 EDT [facility] Comment: Desirable: ?<130 mg/dL Borderline High: ??130-159 mg/dL High: ? 160-189 mg/dL Very High: ?> or = 190 mg/dL Blood VENOUS BLOOD / Unknown Venipuncture / Unknown 11/28/2019 15:56 EDT 11/28/2019 15:56 EDT Tonja Alejandro PA-C CHEMISTRY & BLOOD GAS ORDERABLES Performing Organization Address City/State/[facility] Co de Phone Number [facility] [address] [place] [address] from Last 3 Months or Most Recently Relevant to Health Maintenance Administered Medications Advance Directives For more information, please contact: [phone] Documents on File Type Date Recorded Patient Sprinkling System Irrigator Expl anation Advance Directive 11/23/2022 10:36 Appt Of Health Care Agent-Signed * Full Code (Latest Code Status on File) Date Activated Date Inactivated Comments 10/03/2020 0:19 10/03/2020 15:08 Question Answer Comments Reason for decision includes: Full code consistent with overall plan of care Who participated in the discussion? Patient * Full Code Date Activated Date Inactivated Comments 08/20/2020 10:31 08/20/2020 17:45 Question Answer Comments Reason for decision includes: Full code consistent with overall plan of care Who participated in the discussion? Not Discusse d * Full Code Date Activated Date Inactivated Comments 08/09/2020 1:17 08/10/2020 16:01 Question Answer Comments Reason for decision includes: Full code consistent with overall plan of care Who participated in the discussion? Not Discusse d * Full Code Date Activated Date Inactivated Comments 06/16/2020 14:22 06/16/2020 19:10 Question Answer Comments Reason for decision includes: Full code consistent with overall plan of care Who participated in the discussion? Not Discusse d * Full Code Date Activated Date Inactivated Comments 05/04/2020 0:22 05/04/2020 22:33 Question Answer Comments Reason for decision includes: Full code requested by fully informed patient Who participated in the discussion? Patient Care Teams Millinery Salesperson Relationship Specialty Start Date End Date Carrington Calderon MD 1 [facility] 1 [place] [phone] PCP - General Internal Medicine - Primary Care 12/09/20 Abigail Díaz Tool Repairer Bench 04/21/23 Carmelo Hendrickson Coordinator 12/01/23
--- OUTSIDE RECORDS SUMMARY | 2023-12-16 00:31 | XMS_ITS | Encounter Summary ---
Author Organization [facility] Address [address] [place] [address] Care Team Providers Care Mirror Machine Feeder Name Role Phone Carrington Calderon MD Primary Care Provi anders Abigail Díaz Unavailable Carmelo Hendrickson Unavailable Unavailable Encounter Details Date Type Department Care Team (Late st Contact Info) Description 12/02/2023 Patient Outreach [facility] Adult Primary Care - [place] [address] [place], [place] [phone] Carmelo Hendrickson Social History Tobacco Use Types Packs/Day Years Used Date Smoking Tobacco: Every Day Cigarettes 0.5 13.1 Started: 11/10/2010 Smokeless Tobacco: Never Comments:06/13/20 actively try ing to quit about 5-8 cigs/day Alcohol Use Standard Drinks/Week Comments Yes 0 (1 standard drink = 0.6 oz pur e alcohol) rarely C Utilities Answer Date Recorded In the past 12 months has [employer], gas, oil, or water [employer] threatened to shut off services in your [...] any time in the past 12 m [facility], were you homeless or living in a [...] encounter Progress Notes * Carmelo Hendrickson - 12/02/2023 1238 EDT [facility] Salon Customer Experience Specialist Initial Note Referred by: Abigail Díaz [facility] PCP: Carrington Calderon Encounter type: Telephone Reason for Referral: [employer] and other economic programs Notes: This Salon Customer Experience Specialist (RC) called Stella and talked to her about signing up for [employer], as well as about health insurance. Stella reports a change in her family's employment situation and this RC walked her through how to sign up for health insurance through the [place] [employer] website given a potential special enrollment period and ESD website for [employer]. Plan / Action Items: Stella plans to self-attempt signing up for health insurance and [employer] and this RC will call her on 12/07/23 to see if further assistance would be helpful. Carmelo Hendrickson 12/02/23 12:40 documented in this encounter Plan of Treatment Upcoming Encounters Date Type Department Care Team (Late st Contact Info) Description 02/21/2024 9:45 EDT Office Visit [facility] Adult Primary Care - [address] [phone] Carrington Calderon MD [address] [phone] 02/27/2024 8:30 EDT Telemedicine [facility] Sleep Program [address] [phone] Rn, Sleep 02/29/2024 10:30 EDT Appointment [facility] Radiology Nuclear Medicine and PET [address] [phone] 02/29/2024 14:30 EDT Appointment [facility] Radiology Nuclear Medicine and PET [address] [address] 03/01/2024 8:00 EDT Appointment [facility] Radiology Nuclear Medicine and PET [address] [phone] 03/01/2024 9:30 EDT Appointment [facility] Radiology Nuclear Medicine and PET [address] [phone] documented as of this encounter Visit Diagnoses Not on filedocumented in this encounter Care Teams Mirror Machine Feeder Relationship Specialty Start Date End Date Carrington Calderon MD [address] [place] [phone] PCP - General Internal Medicine - Primary Care 12/09/20 Abigail Díaz Compensation Administrator 04/21/23 Carmelo Hendrickson Coordinator 12/01/23 documented as of this encounter
--- OUTSIDE RECORDS SUMMARY | 2023-12-16 00:31 | XMS_ITS | Encounter Summary ---
Author Organization [facility] Address [address] [place] [address] Care Team Providers Care Gis Consultant Name Role Phone Carrington Calderon MD Primary Care Provi anders Abigail Díaz Unavailable Carmelo Hendrickson Unavailable Unavailable Encounter Details Date Type Department Care Team (Late st Contact Info) Description 12/07/2023 Patient Outreach [facility] Adult Primary Care - [place] [address] [place], [place] [phone] Carmelo Hendrickson Social History Tobacco Use Types Packs/Day Years Used Date Smoking Tobacco: Every Day Cigarettes 0.5 13.1 Started: 11/10/2010 Smokeless Tobacco: Never Comments:06/13/20 actively try ing to quit about 5-8 cigs/day Alcohol Use Standard Drinks/Week Comments Yes 0 (1 standard drink = 0.6 oz pur e alcohol) rarely C Utilities Answer Date Recorded In the past 12 months has [employer], gas, oil, or water [employer] threatened to shut off services in your [...] any time in the past 12 m [facility], were you homeless or [...] encounter Progress Notes * Carmelo Hendrickson - 12/07/2023 0957 EDT [facility] Cloud Subject Matter Expert Follow-up Note Encounter type: Telephone Notes: RC left a voicemail for Stella to follow up about resource coordination support. Plan / Action Items: RC will follow up in 1 week. Carmelo Hendrickson 12/07/23 9:57 documented in this encounter Plan of Treatment Upcoming Encounters Date Type Department Care Team (Late st Contact Info) Description 02/21/2024 9:45 EDT Office Visit [facility] Adult Primary Care - [address] [phone] Carrington Calderon MD 1 [facility] [address] [place] [phone] 02/27/2024 8:30 EDT Telemedicine [facility] Sleep Program - [address] [address] Rn, Sleep 02/29/2024 10:30 EDT Appointment [facility] Radiology Nuclear Medicine and PET - [address] [address] 02/29/2024 14:30 EDT Appointment [facility] Radiology Nuclear Medicine and PET - [address] [address] 03/01/2024 8:00 EDT Appointment [facility] Radiology Nuclear Medicine and PET - [address] [address] 03/01/2024 9:30 EDT Appointment [facility] Radiology Nuclear Medicine and PET [address] [address] documented as of this encounter Visit Diagnoses Not on filedocumented in this encounter Care Teams Gis Consultant Relationship Specialty Start Date End Date Carrington Calderon MD [address] [place] [address] 1 [place] [phone] PCP - General Internal Medicine - Primary Care 12/09/20 Abigail Díaz Associate Professor Of Forestry 04/21/23 Carmelo Hendrickson Coordinator 12/01/23 documented as of this encounter
--- OUTSIDE RECORDS SUMMARY | 2023-12-16 00:31 | XMS_ITS | Clinical Summary ---
Author Organization [facility] Address [address] [place] [address] Care Team Providers Care Form Maker Plaster Name Role Phone Carrington Calderon MD Primary Care Provi anders Abigail Díaz Unavailable Carmelo Hendrickson Unavailable Unavailable Allergies Active Allergy Reactions Criticality Noted Date Comments Ibuprofen Hives 02/16/2010 Citalopram Other (See Comments) Medium 09/03/2015 suicidal ideation, approx 2012 Other - See Comments Swelling of throat [...] of 5 days (10 doses) 10 Tablet 12/17/2022 Active DULoxetine 40 mg capsule,delayed release(DR/EC)Indic ations:Anxiety and depression Take 40 mg by mouth daily. 30 Capsule 12/17/2022 Active Blood-Glucose Sensor (DEXCOM G6 SENSOR) deviceIndications:T ype 2 diabetes mellitus with diabetic polyneuropathy, with long-term current use of insulin ([facility]) Inject 1 Each into the [...] hours as needed for Nausea. 30 Tablet 06/27/2023 Active traMADol (ULTRAM) 50 mg tabletIndications:C hronic midline low back pain without sciatica Take 1 Tablet by mouth every 6 hours as needed for Pain. Daily Max: 200 mg 30 Tablet 5 06/27/2023 Active insulin glargine (LANTUS SOLOSTAR/SEMGLEE) 100 unit/mL (3 mL) injection penIndications:Type 2 diabetes mellitus with diabetic polyneuropathy, with long-term current use of insulin ([facility]) Inject 44 Units into the skin at bedtime. 36 mL 4 06/27/2023 Active empagliflozin (JARDIANCE) 25 mg tabletIndications:T ype 2 diabetes mellitus with diabetic polyneuropathy, with long-term current use of insulin ([facility]) Take 1 Tablet by mouth daily. 90 Tablet 4 06/27/2023 Active SITagliptin phosphate (JANUVIA) 100 mg tabletIndications:T ype 2 diabetes mellitus with diabetic polyneuropathy, with long-term current use of insulin ([facility]) Take 1 Tablet by mouth daily. 90 Tablet 4 06/27/2023 Active metoclopramide HCl (REGLAN) 10 mg tablet Take 1 Tablet by mouth 3 times daily before meals. Starting 3 days before menses and stopping after end of period 270 Tablet 3 06/27/2023 Active gabapentin (NEURONTIN) 300 mg capsuleIndications: Diabetic polyneuropathy associated with type 2 diabetes mellitus ([facility]) Take 1 Capsule by mouth every morning AND 4 Capsules at bedtime. 450 Capsule 4 06/27/2023 Active SUMAtriptan (IMITREX) 20 mg/actuation nasal spray USE 1 SPRAY(S) INTO RIGHT NOSTRIL NEEDED FOR MIGRAINE HEADACHE 6 Each 1 06/29/2023 Active Blood-Glucose Transmitter (FEMA Guides G6 TRANSMITTER) deviceIndications:T ype 2 diabetes mellitus with diabetic polyneuropathy, with long-term current use of insulin ([facility]) Inject 1 Each into the skin every 3 months. 1 Each 4 07/07/2023 Active HUMALOG KWIKPEN INSULIN 100 unit/mL injectable penIndications:Type 2 diabetes mellitus with diabetic polyneuropathy, with long-term current use of insulin ([facility]) 8 units with breakfast, 15 [...] 06/19 Patient has given permission for [facility] to verbally discuss the following information with [...] Confirmed patient has Traditional Medicaid now. TCN: [id number] Category: Alla Healy 06/10/2020 19:11 Problem Noted Date Diagnosed Date Tobacco use 12/21/2021 Skin infection 12/21/2021 Pannus, abdominal 12/21/2021 Overview: - as of 01/2022, does not meet criteria for surgical intervention (see 01/29/22 note) Neuropathic diabetic ulcer of foot ([facility]) Gastroparesis 08/10/2020 Overview: - Confirmed on gastric [...] polyneuropathy, with long-term current use of insulin ([facility]) 06/05/2020 Overview: - Dx approx [...] approx 2012 - had SI, treated at [place]. Marijuana prn to help with stress/anxiety sx -Describes paradoxical effect of citalopram, reportedly resulting in the above admission at [place] Migraine with aura and witho ut status [...] Overview: Added automatically from request for surgery [id number] of unknown anatomic location 06/20/2020 06/27/2020 Overview: Clinical Group: [facility] Patient HPI: Cristy Luo is an 35 y.o. , patient with history of ectopic and positive HCG during post operative period for unrelated procedure. Reported cramping to [facility] nurse on 06/19. LMP: End of the first week of May Rh status: B- Rhogam: Given by [facility] 06/20/20 Desired : Unknown Ectopic risk factors: hx of ectopic pregnancies and five D&C's . 10/2018: Interstitial treated w/ MTX. HCGs Lab Results Component Value Date HCGPREG 49 (H) 06/25/2020 HCGPREG 111 (H) 06/23/2020 HCGPREG 152 (H) 06/21/2020 HCGPREG 108 (H) 06/19/2020 HCGPREG 2,954 (H) 10/11/2019 HCGPREG 707 (H) 09/02/2019 HCGPREG 316 (H) 08/31/2019 Plan: 06/20/2020: US today and given RhoGham by [facility]. Place in [place] per MD Esteban [...] repeat HCG 06/25 & U/S 06/25 in [facility]. MARCELO Dale 06/25/20: U/S results - [...] then HCG. Results & plan discussed with Liz. Suyapa RN 06/27/20: Negative home UPT this am, pain & VB improved. Per Dr. Kenyon: no f/u needed, resolve problem & remove from Beta Book. MARCELO Dale Hx of ectopic 06/20/202011/2021 Osteomyelitis of toe of left foot 06/05/2020 06/11/2021 Overview: Added automatically from request for surgery [id number] Type 2 diabetes mellitus wit h left diabetic foot ulcer ([facility]) 05/03/2020 03/27/2021 Osteomyelitis of great toe o f left foot ([facility]) 03/12/2020 06/11/2021 Diabetic foot ulcer associat ed with diabetes mellitus due to underlying condition ([facility]) 03/07/2020 03/27/2021 Diabetic foot infection ([facility]) 03/06/2020 06/11/2021 Diabetic foot ulcer ([facility]) 03/06/2020 06/11/2021 Cellulitis of great toe of left foot 11/26/2019 06/11/2021 Encounter for sterilization 11/20/2019 06/20/2020 Overview: Added automatically from request for surgery [id number] Missed 10/12/2019 10/15/2019 Overview: Clinical Group: ED [...] Debi vs. Beta-book RN. 10/12/19: Per Nurse Wolfe patient would like in office procedure kimberly & CReid Wolfe is working on scheduling procedure---> procedure scheduled today (10/11) with Dr. Martínez.. Suyapa, RN 10/15/2019 Call to check in with patient just to make sure she is feeling well and then can remove from beta book (sac seen during procedure, no pathology necessary). RReid Parad 10/15/19: Spoke with Catherine, doing well, she is connected to & she will call for talk Appt.. 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 Last Assessment & Plan: - Reviewed M group practice and clinic flow. - labs ordered today. - Desires cell free DNA, prior auth submitted today. Undecided on CF/SMA testing. - Patient reports normal Paps but unclear when last performed, will likely need at next visit. Ectopic 10/25/2018 10/12/2019 Overview: Clinical Group: [facility] (eg. COGS, ED patient, UOM, MFM, EDIS) [...] Quant Beta HCG = 1652.8 mIU/ml @ [facility] 11/10/2018: Quant Beta HCG, Preg 1,117 mIU/ml* (Ref range: <5 mIU/ml) 11/21/18: Quant Beta HCG 299.98 mIU/mL at [facility] (ref range <2.39) 12/03/18: Quant Beta HCG, 41.94 mIU/ml at [facility] 12/13/18: Quant Beta HCG, 13.63 mIU/ml at [facility] Plan: 10/24/18: per Dr. Coronado repeat HCG [...] go to lab 11/08. [place] [place]/10/18: Plan per Dr. Almeida, repeat HCG in 1 week (11/17). Results & plan reviewed with Cristy. MARCELO Dale 11/21/18 Pt plans on going to [facility] today. [facility] 11/21/18. BHCG 299.98. Repeat in 1 week. Pt would like to go 11/27/18([facility]) as off from work [facility] 12/01/18: LVM for pt to repeat lab work kimberly. This was the fourth call. JON, RN 12/03/18: Per Dr. Kenyon, repeat HCG 12/10. LVM for pt with plan (count as 1st attempt). JON RN 12/11/18: LVM (second call) re: HCG due. MARCELO Dale 12/12/18: Spoke with Cristy, she will get HCG drawn 7/ am. NOS MFM consult, will be rescheduled. MARCELO Dale 12/15/18: Plan per Dr. Gill repeat HCG in one week (12/20), MFM CON 03/02/19. LVM for Cristy with plan. MARCELO Dale 12/25/18: Per [facility] lab last HCG was 12/13, NOS for 12/20, LVM X3, letter sent, will remove from Beta Book.MARCELO Dale Spontaneous miscarriage 09/04/201510/05 Overview: 02/18, 08/19. Followed by Dr. [facility] in OBGYN Type 2 diabetes mellitus ([facility]) 09/03/2015 06/11/2021 Overview: - Dx approx age 25, possible mixed physiology (type I/II) - intolerant of MFM (diarrhea) Encounters Date Type Department Care Team Description 12/14/2023 Patient Outreach [facility] [address] [place] [address] Carmelo Hendrickson 12/09/2023 Orders Only [facility] Radiology - Main [address] [address] Teresita Fitzpatrick MD 12/07/2023 Patient Outreach [facility] Adult Primary [facility] [address] [place] [address] Carmelo Hendrickson 12/02/2023 Patient Outreach [facility] Adult [facility] [address] [place] [address] Carmelo Hendrickson 12/02/2023 Patient Outreach [facility] [address] [place] [address] Abigail Díaz 12/01/2023 15:45 EDT Office Visit [address] [address] Nimisha Clifton NP Neuropathic diabetic ulcer of foot ([facility]) (Primary Dx); Pre-op exam 12/01/2023 Patient Outreach [address] [address] Carmelo Hendrickson 11/22/[address] [id number] Carrington Calderon MD Results 11/18/2023 Community Health Team [address] [id number] Care Management, [facility] 11/16/2023 11:00 EDT Telemedicine [facility] Gastroenterology - [address] [address] Scott Arzate MD Cyclic vomiting syndrome (Primary Dx) 11/15/2023 Patient Outreach [address] [address] Abigail Díaz Encounter for screening involving social determinants of health (SDoH) (Primary Dx) 11/11/2023 13:30 EDT Phlebotomy Only [facility] Laboratory Services - [address] [address] Buggy Runner, [facility] Abnormal thyroid blood test; Encounter for screening for other viral diseases 11/11/2023 13:00 EDT Office Visit [address] [address] Carrington Calderon MD Type 2 diabetes mellitus with diabetic polyneuropathy, with long-term current use of insulin ([facility]) (HCC) (Primary Dx); Migraine with aura and without status migrainosus, not intractable; Anxiety and depression; Cyclic vomiting syndrome; Diabetic ulcer of left midfoot associated with type 2 diabetes mellitus, limited to breakdown of skin ([facility]); Primary insomnia; Abnormal thyroid blood test; Encounter for screening for other viral diseases; Primary hypertension; Subclinical hyperthyroidism from Last 3 Months Immunizations Name Administration Dates Next Due Covid-19 [...] wks+) 11/17/2022 Tdap Vaccine =>7YO IM 06/06/2016 Surgical History Surgery Date Site/Laterality Comments OTHER SURGICAL HISTORY tailbone (mostlikely pilonidal cyst) DILATION AND CURETTAGE OF UTERUS DILATION AND CURETTAGE OF UTERUS DILATION AND CURETTAGE OF UTERUS DILATION AND CURETTAGE OF UTERUS DILATION AND CURETTAGE OF UTERUS DILATION AND CURETTAGE OF UTERUS PILONIDAL CYST EXCISION unknown was a teenager I think I did fine DILATION AND CURETTAGE OF UTERUS TOE AMPUTATION 06/06/2020 - 07/06/2020 Left Great toe- GA tolerated well. BREAST CYST EXCISION Right lumpectomy- GA tolerated well. Medical History Medical History Date Comments Obesity, unspecified Spontaneous miscarriage 09/04/201502/18, . Followed by Dr. L[facility] in OBGYN History of general anesthesia Osteomyelitis (HCC-CMS) of left great toe-s/p amputation Nausea & vomiting occasionally Diabetes (HCC-CMS) A1c 10.3 on - poorly controlled Hx of ectopic 06/20/2020 Hx of migraines Does not exercise 06/13/2020 due to infecte d toe- typically on a normal basis- walk 3 dogs and hiking- climbing stairs is not an issue. Chest pain r/t anxiety Productive cough pt currently qu itting smoking- clear secretions. Diabetes mellitus, type 2 (HCC-CMS) pt check blood sugars at home- X 7 average BG 95-200- ( was throwing up at the time) Last A1C: History of kidney stones about 1 0 yrs ago- passed on own Irritable bowel syndrome 06/13/2020 Peripheral neuropathy 08/12/20- Bi lateral feet-Takes Gabapentin- pt just started this med. Anxiety comes on fast ty pical c/p CP straight through my back it just happens when it happens - takes Ativan prn Depression pt has a referra l for therapy. Arthritis 12/05/19- Spine- t old years ago Back pain chronic low back pain Abnormal gag reflex pt notes she has a very strong gag reflex Gastroparesis Neuropathic diabetic ulcer o f foot ([facility]) 09/17/2021 Family History Medical History Relation Comments Diabetes Maternal Aunt Cancer Maternal Grandmother Breast Diabetes Paternal Aunt Diabetes Paternal Grandmother Diabetes Paternal Uncle Relation Status Comments Maternal Aunt Maternal Grandmother Paternal Aunt Paternal Grandmother Paternal Uncle Social History Tobacco Use Types Packs/Day Years Used Date Smoking Tobacco: Every Day Cigarettes 0.5 13.1 Started: 11/10/2010 Smokeless Tobacco: Never Tobacco Cessation:Ready to Q uit: Not Asked; Counseling Given: Not Answered Comments:06/13/20 actively trying to quit about 5-8 cigs/day Alcohol Use Standard Drinks/Week Comments Yes 0 (1 standard drink = 0.6 oz pur e alcohol) rarely [employer] Answer Date Recorded In the past 12 months has [employer], gas, oil, or water [employer] threatened to shut off services in your [...] place to sleep or slept in a group home (including now)? No 06/14/2023 Housing Stability Vital Sign Answer Norm e Recorded In the last 12 months, was t here a time when you were not able to pay the mortgage or rent on time? No 11/15/2023 In the past 12 months, how m any times have you moved where you were living? 1 11/15/2023 At any time in the past 12 m [facility], were you homeless or living in a group home (including now)? No 11/15/2023 Interpersonal Safety Answer Date Record ed How often does anyone, inclnick waldron family, hit, punch or physically hurt you? 11/15/2023 How often does anyone, audrey waldron family, insult, scream, curse or threaten to hurt you? 11/15/2023 Sex and Gender Information Value Date Recorded Sex Assigned at Not on file Gender Identity Female 06/18/2019 8:54 EST Sexual Orientation Not on file Obstetrics History Para Term AB IAB SAB Ectopic Multiple Livin g Live Births 9 0 0 0 8 0 7 1 0 0 0 Date Outcome GA Total Labor Labor/2nd/3rd Weight Sex Type Anes PTL Vivian A1 A5 Name Clin 2005 SAB 6w0 d SAB Comments:first pregnan cy; ex ; twin confirmed by US at [facility]; no medical or surgical tx 01/2015 SAB 9w0 d SAB Comments:D&C at [facility]; f irst current 08/2015 SAB 10w 0d SAB Comments:D&C at [facility]; 2 nd with current 02/2017 SAB 6w0 d SAB Comments:D&C at [facility]; t hird with current 06/2017 SAB 6w0 d SAB Comments:D&C at [facility]; nonviable seen on US; fourth with current 01/2018 SAB 6w0 d SAB Comments:D&C at [facility] after nonviable on US; had to have repeat D&C in April for retained POCs 10/2018 Ectopic 10w 4d ECTOPIC Comments:interstitial diagnosed at [facility]; given MTX 10/26/1810/2019 SAB Comments:D+C Last Filed Vital Signs Vital Sign Reading [...] Body Mass Index 36.43 06/27/2023 1431 EST Plan of Treatment Upcoming Encounters Date Type Department Care Team (Late st Contact Info) Description 02/21/2024 9:45 EDT Office Visit [facility] Adult Primary Care - [place] [address] [place], [place] [phone] Carrington Calderon MD [address] [facility] Level [address] [place] [phone] 02/27/2024 8:30 EDT Telemedicine [facility] Sleep Program - [address] [place] [address] [place] [address] Rn, Sleep 02/29/2024 10:[address] [facility] Radiology Nuclear Medicine and PET - [address] [address] 02/29/2024 14:[address] [facility] Radiology Nuclear Medicine and PET - [address] [address] 03/01/2024 8:[address] [facility] Radiology Nuclear Medicine and PET - [address] [address] 03/01/2024 9:[address] [facility] Radiology Nuclear Medicine and PET [address] [address] Health Maintenance Due Date Last Done Comments Hepatitis B Vaccine (1 of 3 - 19+ 3-dose series) 2004 Eye Exam 07/30/2017 07/30/2016 Microalbumin/Creatinine Ratio 11/27/2020 11/28/2019 Lipid Profile Screening (Cholesterol) 11/27/2022 11/28/2019 COVID-19 Vaccine ( season) 2023 11/17/2022, 07/06/2021, 01/28/2021 Hemoglobin A1C (Ha1C) 06/14/2023 03/14/2023 , 07/28/2020, 05/03/2020, Additional history exists Foot Exam 11/18/2023 11/17/2022, 11/04, 09/17/2021 Prescription Agreement 11/18/2023 11/17/2022 Influenza Immunization (Adult) (#1) 2024 03/09/2021 Depression Screening 06/27/2024 06/27/2023, 06/14/2023, 11/17/2022, Additional history exists Social Determinants Of Health (SDOH) 11/14/2024 11/15/2023 Preventive Care Visit 11/17/2024 11/17/2022 Tetanus (Adult) Immunization 06/06/2026 06/06/2016 Pap Smear (Cervical Cancer Screening) 06/27/2026 06/27/2023 Cervical Cancer Screening 06/27/2028 HPV/Cotest (Cervical Cancer Screening) 06/27/2028 06/27/2023, 06/27/2023 Pertussis (Adult) Immunization Completed 06/06/2016 Opioid Informed Consent Discontinued 11/28/2019 Pneumococcal Immunization Completed 11/17/2022 Advance Directive Completed 11/23/2022, 11/17/2022 HIV Screening Completed 11/11/2023 Hepatitis C Screen Completed 11/11/2023 HPV Vaccines Aged Out No longer eligi ble based on patient's age to complete this topic Procedures Procedure Name Priority Date/Time Associated Diagnosis [...] polyneuropathy, with long-term current use of insulin ([facility]) LIPID PROFILE (INCLUDES CHOLESTEROL, TRIGLYCERIDES, HDL, LDL) Routine 11/28/2019 15:56 EDT Type 2 diabetes mellitus with other specified complication, unspecified whether fpc insulin use ([facility]) URINE [id number] NE RATIO (ACR) Routine 11/28/2019 15:56 EDT Type 2 diabetes mellitus with other specified complication, unspecified whether rn long term care insulin use ([facility]) from Last 3 Months or Most Recently Relevant to Health Maintenance Results * (ABNORMAL) THYROID CASCADE (11/11/2023 13:53 EDT) Pathologist [facility] TSH 0.37(L) 0.47 - 4.68 mIU/L 11/11/2023 15:38 EDT [facility] Blood VENOUS BLOOD / Unknown Venipuncture / Unknown 11/11/2023 13:53 EDT 11/11/2023 13:55 EDT Narrative [facility] - 11/11/2023 15:38 EDT NOTE: The results of this assay can be falsely lowered due to the consumption of Biotin. Carrington Calderon MD CHEMISTRY & BLOOD GAS ORDERABLES [facility] [address] [place] [address] * HEPATITIS C AB W REFLEX TO HCV RNA BY PCR (11/11/2023 13:53 EDT) [facility] Hep C Antibody Negative Negative 11/11/2023 17:03 EDT [facility] Blood VENOUS BLOOD / Unknown Venipuncture / Unknown 11/11/2023 13:53 EDT 11/11/2023 13:55 EDT Carrington Calderon MD CHEMISTRY & BLOOD GAS ORDERABLES [facility] [address] [place] [address] * HEPATITIS B PROFILE (11/11/2023 13:53 EDT) [facility] Hep B Surface Ag Negative Negative 11/11/19 17:04 EDT [facility] Hep B Surface Ab, Quantitative <3.1 See Note mIU/mL 11/11/2023 17:04 EDT [facility] Comment: Reference Range for Hep B Surface Ab, Quant: Positive: >= 10.0 mIU/mL Negative: ??< 10.0 mIU/mL Patient is presumed to not be immune to infection with Hepatitis B Virus. Hep B Surface Ab, Qualitative Negative See Note 11/11/2023 17:04 EDT [facility] Comment: Reference Range for Hep B Surface Ab, Qual: Unvaccinated: ??Negative Vaccinated: ??Positive Hepatitis B Core Ab, Total Negative Negative 11/11/2023 17:04 EDT [facility] Blood VENOUS BLOOD / Unknown Venipuncture / Unknown 11/11/2023 13:53 EDT 11/11/2023 13:55 EDT Carrington Calderon MD CHEMISTRY & BLOOD GAS ORDERABLES Performing Organization Address [facility]/ZIP Co de Phone Number [facility] [address] [place] [address] * HIV 1/2 ANTIGEN AND ANTIBODY, 4TH GENERATION (11/11/2023 13:53 EDT) Pathologist [facility] HIV 1 and 2 Antibody/p24 Antigen, 4th Generation Negative Negative 11/11/2023 17:04 EDT [facility] Comment:If acute HIV-1 infec tion is suspected in a high risk patient, submit plasma specimen for HIV-1 RNA quantitation test. Blood VENOUS BLOOD / Unknown Venipuncture / Unknown 11/11/2023 13:53 EDT 11/11/2023 13:55 EDT Narrative [facility] - 11/11/2023 17:04 EDT Fourth Generation assay performed on the Siemens Centaur XPT. Carrington Calderon MD IMMUNOLOGY AND SEROLOGY ORDERABLES Performing Organization Address City/[facility]/ZIP Co de Phone Number [facility] [address] [place], [place] [id number] * T3, TOTAL (11/11/2023 13:53 EDT) T3, Total 137 97 - 169 ng/dL 11/11/2023 17:27 EDT [facility] Blood VENOUS BLOOD / Unknown Venipuncture / Unknown 11/11/2023 13:53 EDT 11/11/2023 13:55 EDT Carrington Calderon MD CHEMISTRY & BLOOD GAS ORDERABLES Performing Organization Address City/[facility]/ZIP Co de Phone Number [facility] [address] [place] [address] * T4 FREE (11/11/2023 13:53 EDT) T4, Free 1.1 0.8 - 2.2 ng/dL 11/11/2023 16:08 EDT [facility] Blood VENOUS BLOOD / Unknown Venipuncture / Unknown 11/11/2023 13:53 EDT 11/11/2023 13:55 EDT Carrington Calderon MD CHEMISTRY & BLOOD GAS ORDERABLES Performing Organization Address City/[facility]/ZIP Co de Phone Number [facility] [address] [place] [address] * PAP TEST (06/27/2023 16:00 EST) Specimens A. Cervix and/or Endocervix , ThinPrep Imaging System with Manual Evaluation 07/13/2023 16:25 EST [facility] Specimen Adequacy Satisfactory for Evaluation - transformation zone component absent 07/13/2023 16:25 EST [facility] General Categorization Negative for intraepithelial lesion or malignancy 07/13/2023 16:25 EST [facility] Attestation . 07/13/2023 16:25 EST [facility] at 1625 Clinical History screening 07/13/19 16:25 EST [facility] HPV The result for the Human Papillomavirus (HPV) Detection-High Risk Types is Negative. No E6 or E7 mRNA is detected from HPV types 16,18,31,33,35,39 ,45,51,52,56,58,5 9,66, and 68 by compressor repairer mediated amplification.Lorena ting was performed on specimen [id number] and was resulted on 07/13/2023 1625 EST by JANET, LAB INSTRUMENT RESULTS IN 07/13/2023 16:25 EST [facility] Performing Lab [facility] 07/13/2023 16:25 EST [facility] Scanned Images 07/13/2023 16:25 EST [facility] Pap Test CERVIX UTERI STRUCTURE / Unknown 06/27/2023 16:00 EST 06/27/2023 16:00 EST Carrington Calderon MD PATHOLOGY O RDERABLES Performing Organization Address [facility] Co de Phone Number [facility] [address] [place] [address] * (ABNORMAL) HEMOGLOBIN A1C (03/14/2023 15:19 EDT) Hemoglobin A1c 8.3(H) <5.7 % 03/14/2023 22:02 EDT [facility] Comment: Glycemic Status References: Normal: ??<5.7% Pre-Diabetes: ??5.7% - 6.4% Diagnostic of Diabetes: ??> or = 6.5% (if confirmed) Est Avg Glucose 192 mg/dL 3 22:02 EDT [facility] Comment:The eAG represents t he A1c result expressed as average glucose in mg/dL. Blood VENOUS BLOOD / Unknown Venipuncture / Unknown 03/14/2023 15:19 EDT 03/14/2023 15:19 EDT Carrington Calderon MD CHEMISTRY & BLOOD GAS ORDERABLES Performing Organization Address [facility] Co de Phone Number [facility] [address] [place] [address] * (ABNORMAL) ALBUMIN, URINE (11/28/2019 15:56 EDT) Albumin, Urine 11.3 See Note mg/dL 2019 16:47 EDT [facility] Comment: NOTE: Reference range not established Creatinine, Urine 143.1 See Note mg/dL 11/28/2019 16:47 T [facility] Comment: NOTE: Reference range not established Lab Urine Albumin to Creatinine Ratio 79(H) <30 ug/mg Creatinine 11/28/2019 16:47 EDT [facility] Comment: Urine Albumin/Creatinine Ratio: Normal: <30 ug/mg Creatinine Moderately increased albuminuria: 30-300 ug/mg Creatinine Severley increased albuminuria: >300 ug/mg Creatinine Urine URINE SPECIMEN OBTAINED BY CLEAN CATCH PROCEDURE / Unknown Urine Collect / Unknown 11/28/2019 15:56 EDT 11/28/2019 15:56 EDT Tonja Alejandro PA-C CHEMISTRY & BLOOD GAS ORDERABLES [facility] [address] [place] [address] * LIPID PROFILE (INCLUDES CHOLESTEROL, TRIGLYCERIDES, HDL, LDL) (11/28/2019 15:56 EDT) Cholesterol 179 See Note mg/dL 11/28/2019 17:12 EDT [facility] Comment: Acceptable: ?<200 mg/dL Borderline High: 200-239 mg/dL High: ?> or = 240 mg/dL HDL 38 See Note mg/dL 11/28/2019 17:12 T [facility] Comment: Low: ? <40 mg/dL Normal: ??40-60 mg/dL High: ?>60 mg/dL LDL, Calculated 61 See Note mg/dL 11/28/2019 17:12 [facility] Comment: Optimal: ? <100 mg/dL Near Optimal: ?100-129 mg/dL Borderline High: 130-159 mg/dL High: ?160-189 mg/dL Very High: ? > or = 190 mg/dL Triglyceride 398 See Note mg/dL 11/28/2019 17:12 EDT [facility] Comment: Normal: ? <150 mg/dL Borderline High: ??150 - 199 mg/dL High: ? 200 - 499 mg/dL Very High: ?> or = 500 mg/dL Chol/HDL Ratio 4.7 See Note 11/28/2019 17:12 EDT [facility] Comment: No reference range has been established for CHOL/HDL ratio. Non HDL Cholesterol 141 See Note mg/dL 11/28/2019 17:12 EDT [facility] Comment: Desirable: ?<130 mg/dL Borderline High: ??130-159 mg/dL High: ? 160-189 mg/dL Very High: ?> or = 190 mg/dL Blood VENOUS BLOOD / Unknown Venipuncture / Unknown 11/28/2019 15:56 EDT 11/28/2019 15:56 EDT Tonja Alejandro PA-C CHEMISTRY & BLOOD GAS ORDERABLES Performing Organization Address [facility] Co de Phone Number [facility] [address] [place] [address] from Last 3 Months or Most Recently Relevant to Health Maintenance Advance Directives For more information, please contact: [phone] Documents on File Type Date Recorded Patient Certified Medical Records Coder Expl anation Advance Directive 11/23/2022 10:36 Appt [...] participated in the discussion? Patient Care Teams Form Maker Plaster Relationship Specialty Start Date End Date Carrington Calderon MD 1 [facility] [address] [place] [phone] PCP - General Internal Medicine - Primary Care 12/09/20 Abigail Díaz Human Resources Consultant 04/21/23 Carmelo Hendrickson Coordinator 12/01/23
--- OUTSIDE RECORDS SUMMARY | 2023-12-16 00:32 | XMS_ITS | Encounter Summary ---
Author Organization [facility] Address [address] [place] [address] Care Team Providers Care Hides Inspector Name Role Phone Carrington Calderon MD Primary Care Provi anders Abigail Díaz Unavailable Carmelo Hendrickson Unavailable Unavailable Reason for Referral * Radiology Services (Routine/Next Available) - Receiving Office to Obtain Authorization Specialty Diagnoses / Procedures Referred By Contac t Referred To Contact Nuclear Medicine Diagnoses Subclinical hyperthyroidism Procedures NM THYROID UPTAKE AND SCAN Carrington Calderon MD [address] [phone] [facility] Referral ID Status Reason Start Date Expiration Date Visits Requested Visits Authorized [id number] Receiving Office to Obtain Authorization 12/06/2023 1 1 Reason for Visit * Reason Onset Date Comments Results 11/22/2023 Encounter Details Date Type Department Care Team (Late st Contact Info) Description 11/22/2023 Telephone [facility] Adult Primary Care - [address] [address] Carrington Calderon MD [address] [phone] Results Social History Tobacco Use Types Packs/Day Years Used Date Smoking Tobacco: Every Day Cigarettes 0.5 13.1 Started: 11/10/2010 Smokeless Tobacco: Never Comments:06/13/20 actively try ing to quit about 5-8 cigs/day Alcohol Use Standard Drinks/Week Comments Yes 0 (1 standard drink = 0.6 oz pur e alcohol) rarely [facility] Utilities Answer Date Recorded In the past 12 months has th e electric, gas, oil, or water company threatened to [...] place to sleep or slept in a nursing home (including now)? No 06/14/2023 Housing Stability [...] any time in the past 12 m ont, were you homeless or living in a nursing home (including now)? No 11/15/2023 Interpersonal Safety [...] No 10/02/2020 documented as of this encounter Miscellaneous Notes * Telephone Encounter - Jackie Madsen RN - 12/02/2023 1420 EDT Pt was actually in the building today and stopped by our office. --she said she does not take any supplements, minerals, vitamins, or biotin Let her know we will have PCP advise what the next step is. Pt was concerned about the abnormal result, let her know generally, a thyroid medication is prescribed, her thyroid may just needs a little help. Pt will call on Tuesday around 4 if she has not heard from us sooner. The patient indicates understanding of these issues and agrees with the plan. No barriers noted. * Telephone Encounter - Jackie Madsen RN - 12/02/2023 1402 EDT Could not reach pt to discuss supplements and labwork. Pt was seen for pre-op yesterday, but does not appear provider knew we were still trying to reach pt regarding if she is taking biotin or mineral supplement. Updating PCP. * Telephone Encounter - Jesi Lua RN - 11/22/2023 1315 EDT ----- Message from Carrington Calderon MD sent at 11/18/2023 15:46 EDT ----- Can someone touch base with Stella to see if she is taking vitamins/supplements that may have biotin? She hasn't responded to my message below. Carrington Calderon MD 11/11/2023 16:13 EDT Stella, Waiting for some of these to come back, but the TSH is low again, which can represent increased/elevated thyroid gland function. Do you take any supplements that might have biotin in them. Most multivitamins have this as well as any B complex. This can throw off the results. If so, we would just want to repeat this without the supplement on board. Enzo Douglas, Waiting for some of these to come back, but the TSH is low again, which can represent increased/elevated thyroid gland function. Do you take any supplements that might have biotin in them. Most multivitamins have this as well as any B complex. This can throw off the results. If so, we would just want to repeat this without the supplement on board. Enzo Written by Carrington Calderon MD on 11/11/2023 16:13 EDT documented in this encounter Plan of Treatment Upcoming Encounters Date Type Department Care Team (Late st Contact Info) Description 02/21/2024 9:45 EDT Office Visit [facility] Adult Primary Care - [address] [phone] Carrington Calderon MD [address] [place] [phone] 02/27/2024 8:30 EDT Telemedicine [facility] Sleep Program - [address] [phone] Rn, Sleep 02/29/2024 10:30 EDT Appointment [facility] Radiology Nuclear Medicine and PET - [address] [id number] 02/29/2024 14:30 EDT Appointment [facility] Radiology Nuclear Medicine and PET [address] [phone] 03/01/2024 8:00 EDT Appointment [facility] Radiology Nuclear Medicine and PET [address] [id number] 03/01/2024 9:30 EDT Appointment [facility] Radiology Nuclear Medicine and PET [address] [phone] Scheduled Orders Name Type Priority Associated Diagnoses Orde r Schedule NM THYROID UPTAKE AND SCAN Imaging Routine Subclinical hyperthyroidism Expected: 12/13/2023 (Approximate), Expires: 06/07/2025 documented as of this encounter Visit Diagnoses Diagnosis Subclinical hyperthyroidism- Primary Thyrotoxicosis without mention of goiter or other cause, without mention of thyrotoxic crisis or storm documented in this encounter Care Teams Hides Inspector Relationship Specialty Start Date End Date Carrington Calderon MD [address] [place] [phone] PCP - General Internal Medicine - Primary Care 12/09/20 Abigail Díaz Office Cleaner 04/21/23 Carmelo Hendrickson Coordinator 12/01/23 documented as of this encounter
--- OUTSIDE RECORDS SUMMARY | 2023-12-16 00:32 | XMS_ITS | Encounter Summary ---
Author Organization [facility] Address [address] [place] [address] Care Team Providers Care Operations Supervisor Name Role Phone Carrington Calderon MD Primary Care Provi anders Abigail Díaz Unavailable [phone] Reason for Visit * Reason Comments Coordination Of Care Encounter Details Date Type Department Care Team (Late st Contact Info) Description 11/18/2023 Community Health Team [facility] Adult Primary Care - [place] [address] [place], [place] [address] Care Management, [facility] Social History Tobacco Use Types Packs/Day Years Used Date Smoking Tobacco: Every Day Cigarettes 0.5 13.1 Started: 11/10/2010 Smokeless Tobacco: Never Comments:06/13/20 actively try ing to quit about 5-8 cigs/day Alcohol Use Standard Drinks/Week Comments Yes 0 (1 standard drink = 0.6 oz pur e alcohol) rarely [facility] Utilities Answer Date Recorded In the past 12 months has [employer], gas, oil, or water [employer] threatened to shut off services in your [...] place to sleep or slept in a [place] health [place] facility (including now)? No 06/14/2023 Housing Stability Vital Sign Answer Norm e Recorded In the last 12 months, was t here a time when you were not able to pay the mortgage or rent on time? No 11/15/2023 In the past 12 months, how m any times have you moved where you were living? 1 11/15/2023 At any time in the past [address] [facility], were you homeless or living in a [place] health [place] facility (including now)? No 11/15/2023 Interpersonal Safety Answer [...] as of this encounter Progress Notes * Nery Stokes - 11/18/2023 0945 EDT [facility] Cornetist Date: 11/18/23 Referred by: Abigail Williamson PCP: Carrington Calderon Encounter type: Phone Reason for Referral: 3 Squ[employer], Financial Notes: This Cornetist called Stella at scheduled date/time and left a voicemail offering to reschedule with direct contact information. Plan / Action Items: This Cornetist sent a [place] message offering to reschedule. Pending reply from Stella. If no response by November 29, this Cornetist will place a call toLiz informing if no reply by 12/16/23, the referral will be closed. Assistance is available with a new referral if the referral is closed. Nery Stokes 11/18/23 9:45 documented in this encounter Plan of Treatment Upcoming Encounters Date Type Department Care Team (Late st Contact Info) Description 02/21/2024 9:45 EDT Office Visit [facility] Adult Primary Care - [address] [phone] Carrington Calderon MD [address] [phone] 02/27/2024 8:30 EDT Telemedicine [facility] Sleep Program - [address] [phone] Rn, Sleep 02/29/2024 10:30 EDT Appointment [facility] Radiology Nuclear Medicine and PET [address] [id number] 02/29/2024 14:30 EDT Appointment [facility] Radiology Nuclear Medicine and PET [address] [id number] 03/01/2024 8:00 EDT Appointment [facility] Radiology Nuclear Medicine and PET [address] [phone] 03/01/2024 9:30 EDT Appointment [facility] Radiology Nuclear Medicine and PET [address] [phone] documented as of this encounter Visit Diagnoses Not on filedocumented in this encounter Care Teams Operations Supervisor Relationship Specialty Start Date End Date Carrington Calderon MD [address] [place] [phone] PCP - General Internal Medicine - Primary Care 12/09/20 Abigail Díaz Torque Tester 04/21/23 documented as of this encounter
--- OUTSIDE RECORDS SUMMARY | 2023-12-16 00:32 | XMS_ITS | Encounter Summary ---
Author Organization [facility] Address [address] [place] [address] Care Team Providers Care Fisher Sponge Hooking Name Role Phone Carrington Calderon MD Primary Care Provi anders Abigail Díaz Unavailable [phone] Carmelo Hendrickson Unavailable Unavailable Reason for Referral * Consult (Routine/Next Available) - Specialty Report Received Specialty Diagnoses / Procedures [facility] Referred To Contact Obstetrics & Gynecology Diagnoses IUD contraception Carrington Calderon MD [address] [phone] [facility] [address] [place] [address] Referral ID Status Reason Start Date Expiration Date Visits Requested Visits Authorized [id number] Specialty Report Received Specialty Services Required 3 1 1 Question Answer Reason for Request: IUD placement Reason for Visit * Reason Onset Date Comments Referral Request 06/01/2023 Encounter Details Date Type Department Care Team (Late st Contact Info) Description 06/01/2023 Telephone [facility] Adult Primary Care - [address] [address] Carrington aClderon MD [address] [phone] Referral Request Social History Tobacco Use Types Packs/Day Years Used Date Smoking Tobacco: Former Cigarettes 0.5 13.1 S tarted: 11/10/2010 Smokeless Tobacco: Never Comments:06/13/20 actively try ing to quit about 5-8 cigs/day Alcohol Use Standard Drinks/Week Comments Yes 0 (1 standard drink = 0.6 oz pur e alcohol) rarely [facility]-[facility] Answer Date Recorded Q1: How often [...] like food, housing, medical care, and heating? Not hard at all 11/17/2022 PHQ-2 Answer Date Recorded PHQ-2 SUBTOTAL 3 11/17/2022 Hunger Vital Sign Answer Date Recorded Within the past 12 months, y ou worried that your food would run out before you got the money to buy more. Never true 11/18/19 23 Within the past 12 months, t he food you bought just didn't last and you didn't have money to get more. Never true 11/17/2022 PRAPARE - Transportation Answer Date Re corded In the past 12 months, has l ack of transportation kept you from medical appointments or from getting medications? No 11/04 In the past 12 months, has l ack of transportation kept you from meetings, work, or from getting things needed for daily living? No 11/17/2022 Housing Stability Vital Sign Answer Norm e Recorded In the last 12 months, was t here a time when you were not able to pay the mortgage or rent on time? No 11/17/2022 Number of Places Lived in the Last Year Not on f ile 11/17/2022 In the last 12 months, was t here a time when you did not have a steady place to sleep or slept in a residential (including now)? No 11/17/2022 Interpersonal Safety Answer Date Record ed How often does anyone, audrey waldron family, hit, punch or physically hurt you? Never 11/17/2022 How often does anyone, audrey waldron family, insult, scream, curse or threaten to hurt you? Never 11/17/2022 Sex and Gender Information Value Date Recorded [...] encounter Miscellaneous Notes * Telephone Encounter - Karen Trujillo - 06/01/2023 1104 EST Patient is calling to get a referral to [facility] for a Kriss placement. documented in this encounter Plan of Treatment Upcoming Encounters Date Type Department Care Team (Late st Contact Info) Description 02/21/2024 9:45 EDT Office Visit [facility] Adult Primary Care - [place] [address] [place], [place] [phone] Carrington Calderon MD 1 [facility] Level [address] [place] [phone] 02/27/2024 8:30 EDT Telemedicine [facility] Sleep Program - [address] [address] Rn, Sleep 02/29/2024 10:30 EDT Appointment [facility] Radiology Nuclear Medicine and PET - [address] [address] 02/29/2024 14:30 EDT Appointment [facility] Radiology Nuclear Medicine and PET [address] [address] 03/01/2024 8:00 EDT Appointment [facility] Radiology Nuclear Medicine and PET [address] [address] 03/01/2024 9:30 EDT Appointment [facility] Radiology Nuclear Medicine and PET [address] [address] Scheduled Referrals Name Type Priority Associated Diagnoses Orde r Schedule AMB CONS/FOLLOW UP GYNECOLOGY Outpatient Referral Routine/Next Available IUD contraception Expected: 06/08/2023 (Approximate), Expires: 06/01/2024 documented as of this encounter Visit Diagnoses Diagnosis IUD contraception- Primary Presence of intrauterine contraceptive device documented in this encounter Care Teams Fisher Sponge Hooking Relationship Specialty Start Date End Date Carrington Calderon MD [address] [place] [phone] PCP - General Internal Medicine - Primary Care 12/09/20 Abigail Díaz Load Dispatcher 04/21/23 Carmelo Hendrickson Coordinator 12/01/23 documented as of this encounter
--- OUTSIDE RECORDS SUMMARY | 2023-12-16 00:32 | XMS_ITS | Encounter Summary ---
Author Organization [facility] Address [address] [place] [address] Care Team Providers Care Immunologist Name Role Phone Carly Calderon MD Primary Care Provi anders Abigail Díaz Unavailable Reason for Referral * Consult (Routine/Next Available) - Closed Specialty Diagnoses / Procedures Referred By Kit goode Referred To Contact Sleep Medicine Diagnoses Primary insomnia Carly Calderon MD [address] [phone] [facility] [address] [place] [address] Referral ID Status Reason Start Date Expiration Date V isits Requested Visits Authorized [id number] Closed Specialty Services Required 06/27/2023 1 1 Question Answer Reason for referral Diffifulty initiating sleep, Difficulty maintaining sleep Patient Type: Adult * Consult (Routine/Next Available) - Specialty Report Received Specialty Diagnoses / Procedures Referred By Kit goode Referred To Contact Hematology Diagnoses Night sweats Lymphocytosis Carly Calderon MD [address] [phone] [facility] Hem/Onc [address] [place] [address] Referral ID Status Reason Start Date Expiration Date Visits Requested Visits Authorized [id number] Specialty Report Received Specialty Services Required 06/27/2023 1 1 Question Answer Reason for Request: night sweats Reason for Visit * Reason Comments Annual Exam Gynecologic Exam Encounter Details Date Type Department Care Team (Late st Contact Info) Description 06/27/2023 14:45 EST Office Visit [facility] Adult Primary Care [facility] [address] [place], [place] [id number] Carly Calderon MD 1 [facility] Level [address] [place] [address] Cyclic vomiting syndrome (Primary Dx); Anxiety; Chronic midline low back pain without sciatica; Type 2 diabetes mellitus with diabetic polyneuropathy, with long-term current use of insulin (HCC-CMS); Primary insomnia; Diabetic polyneuropathy associated with type 2 diabetes mellitus ([facility]-CMS); Night sweats; Lymphocytosis; Cervical cancer screening; Candidal intertrigo Social History Tobacco Use Types Packs/Day Years Used Date Smoking Tobacco: Former Cigarettes 0.5 13.1 S tarted: 11/10/2010 Smokeless Tobacco: Never Tobacco Cessation:Counseling Given: Not Answered Comments:06/13/20 actively trying to [...] care, and heating? Not hard at all 06/14/2023 PHQ-2 Answer Date Recorded PHQ-2 SUBTOTAL 2 06/14/2023 Hunger Vital Sign Answer Date Recorded Within the past 12 months, y ou worried that your food would run out before you got the money to buy more. Never true 06/14/19 24 Within the past 12 months, t he food you bought just didn't last and you didn't have money to get more. Never true 06/14/2023 PRAPARE - Transportation Answer Date Re corded In the past 12 months, has l ack of transportation kept you from medical appointments or from getting medications? No 02/2024 In the past 12 months, has l ack of transportation kept you from meetings, work, or from getting things needed for daily living? No 06/14/2023 Housing Stability Vital Sign Answer [...] place to sleep or slept in a skilled nursing (including now)? No 06/14/2023 Interpersonal Safety Answer Date Record ed How often does anyone, inclu chivo family, hit, punch or physically hurt you? 06/14/2023 How often does anyone, inclu chivo family, insult, scream, curse or threaten to hurt you? 06/14/2023 Sex and Gender Information Value Date Recorded Sex Assigned at Not on file Gender Identity Female 06/18/2019 8:54 EST Sexual Orientation Not on file documented as of this encounter Last Filed Vital Signs Vital Sign Reading Time Taken Comments Blood Pressure 126/87 06/27/2023 1431 EST Pulse 123 06/27/2023 1431 EST Temperature 36.6 ??C (97.8 ??F) 06/27/2023 1431 EST Respiratory Rate 16 06/27/2023 1431 EST Oxygen Saturation - - Inhaled Oxygen Concentration - - Weight 99.8 kg (220 lb) 06/27/2023 1431 EST Height 164 cm (5' 4.57) 06/27/2023 1431 EST Body Mass Index 37.1 06/27/2023 1431 EST documented in this encounter Functional Status Functional Status Response [...] No 10/02/2020 documented as of this encounter Ordered Prescriptions Prescription Sig Dispensed Refills Start Date End Da te gabapentin (NEURONTIN) 300 mg capsuleIndications:Diabe tic polyneuropathy associated with type 2 diabetes mellitus ([facility]) Take 1 Capsule by mouth every morning AND 4 Capsules at bedtime. 450 Capsule 4 06/27/2023 metoclopramide HCl (REGLAN) 10 mg tablet Take 1 Tablet by mouth 3 times daily before meals. Starting 3 days before menses and stopping after end of period 270 Tablet 3 06/27/2023 SITagliptin phosphate (JANUVIA) 100 mg tabletIndications:Type 2 diabetes mellitus with diabetic polyneuropathy, with long-term current use of insulin ([facility]) Take 1 Tablet by mouth daily. 90 Tablet 06/27/2023 empagliflozin (JARDIANCE) 25 mg tabletIndications:Type 2 diabetes mellitus with diabetic polyneuropathy, with long-term current use of insulin ([facility]) Take 1 Tablet by mouth daily. 90 Tablet 06/27/2023 insulin glargine (LANTUS SOLOSTAR/SEMGLEE) 100 unit/mL (3 mL) injection penIndications:Type 2 diabetes mellitus with diabetic polyneuropathy, with long-term current use of insulin ([facility]) Inject 44 Units into the skin at bedtime. 36 mL 06/27/2023 traMADol (ULTRAM) 50 mg tabletIndications:Chroni c midline low back pain without sciatica Take 1 Tablet by mouth every 6 hours as needed for Pain. Daily Max: 200 mg 30 Tablet 5 06/27/2023 ondansetron (ZOFRAN-ODT) 4 mg disintegrating tabletIndications:Cyclic vomiting syndrome Take 1 Tablet by mouth every 8 hours as needed for Nausea. 30 Tablet 11 06/27/2023 LORazepam (ATIVAN) 0.5 mg tabletIndications:Anxiet y Take 1 Tablet by mouth daily as needed for Anxiety. Daily Max: 0.5 mg 30 Tablet 3 06/27/2023 SUMAtriptan (IMITREX) 20 mg/actuation nasal spray Instill 1 Negley into right nostril as needed for Migraine. 6 Each 06/27/2023 06/29/2023 HUMALOG KWIKPEN INSULIN 100 unit/mL injectable penIndications:Type 2 diabetes mellitus with diabetic polyneuropathy, with long-term current use of insulin ([facility]) 8 units with breakfast, 12 units with lunch/dinner 30 mL 11 06/27/2023 11/11/2023 documented in this encounter Progress Notes * Carly Calderno MD - 06/27/2023 9768 EST Images from the original note were not included. Primary Care Office Visit Assessment & Plan Diagnoses and all orders for this visit: Cyclic vomiting syndrome: Symptoms persist. She has not yet tried intranasal sumatriptan. I recommended that she try this at next onset of symptoms. I also recommended that she change her pattern of taking metoclopramide to before and during menses. This may achieve similar results without exposingher unnecessarily to risks and side effects of the medication throughout the month. Tricyclic antidepressant is a consideration and may also provide some benefit for her neuropathy and insomnia. However, this interacts with her tramadol and can increase the risk of seizure or serotonin syndrome. I am reluctant to start this medication today for this reason. I will do some further investigation asto the safety of using this in setting of tramadol use and we can discuss in the next visit. - ondansetron (ZOFRAN-ODT) 4 mg disintegrating tablet Anxiety - LORazepam (ATIVAN) 0.5 mg tablet Chronic midline low back pain without sciatica - traMADol (ULTRAM) 50 mg tablet Type 2 diabetes mellitus with diabetic polyneuropathy, with long-term current use of insulin ([facility]): CGM data reviewed in detail today. GMI is 7.7%, somewhat better than her most recent A1c of 8.3. She has had some low glucose readings, mostly in the middle of the day, but otherwise remains mostly elevated. She does note that her breakfast tends to be light and she sometimes does not eat lunch. In light of this, I recommended that she take 8 units rather than 12 with breakfast, and then 12 units with her other meals, and that she not take short acting insulin if she is not eating a meal, otherwise reduced to 8 if having a light meal other than breakfast. We can increase the glargine to 44 units from 40 units/day, and resume Januvia. She had misunderstood the Januvia was supposed to be stopped when initiating the empagliflozin. Ideally we would consider using a GLP-1 receptor agonist,but with her cyclic vomiting, this could make things worse. If we are ever able to get this under good control, we could consider changing from Sitagliptin to 1 of the more potent GLP-1 receptor agoni sts. - HUMALOG KWIKPEN INSULIN 100 unit/mL injectable pen - insulin glargine (LANTUS SOLOSTAR/SEMGLEE) 100 unit/mL (3 mL) injection pen - empagliflozin (JARDIANCE) 25 mg tablet - SITagliptin phosphate (JANUVIA) 100 mg tablet Primary insomnia: Sleep hygiene discussed in some detail today. Her most significant low hanging fruit is screen time. Even if she is not fully actively watching television, it is likely not helping her sleep to have it on in the background. I suggested that she eliminate any screens within 2 to 3 hours of bedtime. I also suggested that she take no more than 5 mg of melatonin nightly. Mirtazapineis a consideration for the future, which may help with sleep and mood. We did not broach this possibility today. As noted above, TCA is a consideration as well, though presents risks with her tramadol. I recommended she consider referral for CBT. She is amenable. - BEHAVIORAL SLEEP MEDICINE CONSULTATION Diabetic polyneuropathy associated with type 2 diabetes mellitus ([facility]): We discussed considering an increase in her pregabalin dose, she is amenable, prefers to just increase the nighttime dose as that is when she is having symptoms. We can go up from 900 to 1200 mg at night, keep the 300 mg dose in the morning. - gabapentin (NEURONTIN) 300 mg capsule Night sweats: Stella continues to have night sweats, has had persistent lymphocytosis. Flow cytometry somewhat reassuring, though the combination of symptoms and findings is concerning. I recommended that she see hematology. - AMB CONS/FOLLOW UP HEMATOLOGY Lymphocytosis - AMB CONS/FOLLOW UP HEMATOLOGY Cervical cancer screening: Pap done today, Jose Luis Wilson present during the exam as wildland fire operations specialist and physical therapy assistant instructor. - PAP TEST Candidal intertrigo: Rash is not particularly active on today's exam. When she is using nystatin, she only uses it for brief stretches of time. I recommended that she instead use this for 2 to 3 weeks minimum at a time, and that she use it once weekly for suppression otherwise. We can reassess nextvisit. If inadequate response to this, can consider an alternative topical and/or systemic treatment. Other orders - SUMAtriptan (IMITREX) 20 mg/actuation nasal spray - metoclopramide HCl (REGLAN) 10 mg tablet Return in about 8 weeks (around 08/22/2023) for same day ok, F30. Patient education was direct. Barriers were assessed and addressed as needed. I spent a total of 50 minutes on the date of this encounter meeting with the patient and reviewing documentation/coordinating care as described in the above note. Unless otherwise noted, no procedures were performed at the time of the visit. Subjective Stella is a 38 y.o. female presenting with Annual Exam and Gynecologic Exam HPI Last visit with me was in March. Cyclical vomiting had not improved despite trial of abortive migraine therapy. We discussed suppressing menses as the symptoms were very clearly tied to menstrual cycle. She opted to pursue Mirena IUD. She describes night sweats, differential including perimenopause versus thyroid disease or other systemic illness. She was noted to have had lymphocytosis in the past. Repeat CBC at that time was reassuring. She was seen by Dr. Arzate in GI who recommended consideration of TCA if duloxetine ineffective, and for abortive therapy trial of zofran, compazine suppository, sumatriptan nasal. Stella reports that she continues to have episodic vomiting. Her most recent episode was last month with her menses. She has not had any recent menstrual cycles without symptoms. She anticipates menses starting in the next week or so, and that she will have nausea and vomiting with this. She has triedsumatriptan. She was unaware of the nasal sumatriptan and prescription and has not tried this. She continues to take Reglan [id number] and both during and her episodes of menses. Stella today describes that she has had insomnia for years. She takes a cocktail of melatonin 60 mg, NyQuil, and her gabapentin for neuropathy. She has trouble both falling asleep and staying asleep. When she wakes up in the middle of the night, she either finds it difficult or impossible to fall backasleep. Sometimes stress and rumination are contributing. Other times it is less clear that this isthe case. She drinks 1 to 2 cups of coffee in the morning, stopped drinking coffee usually by around 8:30 AM. She drinks alcohol only a few times a year. She has the TV on in her bedroom right up until bedtime most nights or all nights. She states that she is not actively watching this, but it is on the background. Mood lately has been highly variable, though she reports that this seems to have he lped somewhat with her depressed mood. She is doing therapy weekly, makes reference to history of PTSD. She does not have nightmares. She does have significant ongoing stressors with life, health of her , income concerns. Stella reports that her intertrigo has become a real problem. This is flaring up frequently, a few times a month. She will take nystatin topical for a few days, and symptoms will rafal somewhat, and then it will recur. This can be very painful. She finds the pannus to be a nuisance in and of itself, getting in the way, particularly if she is engaging her abdominal muscles at all. She is using the Dexcom. Data is reviewed and on display below. Diabetic neuropathy symptoms have gotten somewhat worse, with increased pain at nighttime. This does not bother her so much during the day. Data reviewed this visit: problem list/past medical history, current medications, and allergies ROS - See HPI Objective BP 126/87 Pulse (!) 123 Temp 36.6 ??C (97.8 ??F) (Tympanic) Resp 16 Ht 164 cm (64.57) Wt99.8 kg (220 lb) BMI 37.10 kg/m?? Physical Exam Constitutional: Appearance: She is well-developed and well-nourished. Genitourinary: Comments: Normal external genitalia. Normal cervical mucus. Cervix appears normal, not friable, oriented downward, making it difficult to fully realize the cervical os Skin: Comments: Intertriginous region with absence of significant erythema. There are scattered areas of very slight irritation with broken skin documented in this encounter Miscellaneous Notes * Result Encounter Note - Carly Calderon MD - 06/27/2023 1445 EST Great news Stella- negative Pap. We can repeat in 5 years. Enzo * Addendum Note - Carly Calderon MD - 06/27/2023 1445 ESTAddended by: CARLY CALDERON on: 06/28/2023 12:47 Modules accepted: Level of Service documented in this encounter Plan of Treatment Upcoming Encounters Date Type Department Care Team (Late st Contact Info) Description 02/21/2024 9:45 EDT Office Visit [facility] Adult Primary Care - [address] [phone] Carly Calderon MD [address] [phone] 02/27/2024 8:30 EDT Telemedicine [facility] Sleep Program - [address] [id number] Rn, Sleep 02/29/2024 10:30 EDT Appointment [facility] Radiology Nuclear Medicine and PET - [address] [phone] 02/29/2024 14:30 EDT Appointment [facility]iology Nuclear Medicine and PET - [address] [id number] 03/01/2024 8:00 EDT Appointment [facility] [address] [place], [place] [phone] 03/01/2024 9:30 EDT Appointment [facility] Nuclear Medicine [facility] [address] [place], [place] [address] Scheduled Referrals Name Type Priority Associated Diagnoses Order Schedule AMB CONS/FOLLOW UP HEMATOLOGY Outpatient Referral Routine/Next Available Night sweats Lymphocytosis Expected: 07/04/2023 (Approximate), Expires: 06/27/2024 BEHAVIORAL SLEEP MEDICINE CONSULTATION Outpatient Referral Routine/Next Available Primary insomnia Expected: 07/04/2023 (Approximate), Expires: 06/27/2024 documented as of this encounter Procedures Procedure Name Priority Date/Time Associated Diagnosis Comments PAP TEST Routine 06/27/2023 16:00 EST Cervical cancer screening HPV DNA DETECTION WITH GENOTYPING, PCR Today 06/27/2023 16:00 EST Cervical cancer screening documented in this encounter Results * HUMAN PAPILLOMAVIRUS (HPV) DETECTION-HIGH RISK TYPES (06/27/2023 16:00 EST) HPV other High Risk types, PCR Negative Negative 07/13/2023 16:25 EST [facility] Comment:No E6 or E7 mRNA is detected from HPV types 16,18,31,33,35,39,45,51,52,56,58,59,66, and 68 by nurse discharge planner mediated amplification. Pap Test CERVIX UTERI STRUCTURE / Unknown 06/27/2023 16:00 EST 07/11/2023 13:44 EST Carly Calderon MD MICROBIOLOG Y - GENERAL ORDERABLES [facility] [address] [place] [address] * PAP TEST (06/27/2023 16:00 EST) Specimens A. Cervix and/or Endocervix , ThinPrep Imaging System with Manual Evaluation 07/13/2023 16:25 [facility] Specimen Adequacy Satisfactory for Evaluation - transformation zone component absent 07/13/2023 16:25 [facility] General Categorization Negative for intraepithelial lesion or malignancy 07/13/2023 16:25 [facility] Attestation . 07/13/2023 16:25 [facility] at 1625 Clinical History screening 07/13/19 16:25 [facility] HPV The result for the Human Papillomavirus (HPV) Detection-High Risk Types is Negative. No E6 or E7 mRNA is detected from HPV types 16,18,31,33,35,39 ,45,51,52,56,58,5 9,66, and 68 by nurse discharge planner mediated amplification.Lorena ting was performed on specimen [id number] and was resulted on 07/13/2023 1625 EST by JANET, LAB INSTRUMENT RESULTS IN 07/13/2023 16:25 [facility] Performing Lab [facility] 07/13/2023 16:25 [facility] Scanned Images 07/13/2023 16:25 [facility] Pap Test CERVIX UTERI STRUCTURE / Unknown 06/27/2023 16:00 EST 06/27/2023 16:00 EST aCrly Calderon MD PATHOLOGY O RDERABLES [facility] [address] [place] [address] documented in this encounter Visit Diagnoses Diagnosis Cyclic vomiting syndrome- Primary Persistent vomiting Anxiety Anxiety state, unspecified Chronic midline low back pain without sciatica Type 2 diabetes mellitus with diabetic polyneuropathy, with long-term current use of insulin (HCC-CMS) Primary insomnia Persistent disorder of initiating or maintaining sleep Diabetic polyneuropathy associated with type 2 diabetes mellitus (HCC-CMS) Night sweats Generalized hyperhidrosis Lymphocytosis Lymphocytosis (symptomatic) Cervical cancer screening Screening for malignant neoplasm of the cervix Candidal intertrigo Candidiasis of skin and nails documented in this encounter Discontinued Medications Medication Sig Discontinue Reason Start Date End Da te LORazepam (ATIVAN) 0.5 mg tabletIndications:Anxi ety Take 1 Tablet by mouth daily as needed for Anxiety. Daily Max: 0.5 mg Reorder 11/17/2022 06/27/2023 ondansetron (ZOFRAN-ODT) 4 mg disintegrating tabletIndications:Warren roparesis Take 1 Tablet by mouth every 8 hours as needed for Nausea. Reorder 11/17/2022 06/27/2023 traMADol (ULTRAM) 50 mg tabletIndications:Box Toe Cementer gordo midline low back pain without sciatica Take 1 Tablet by mouth every 6 hours as needed for Pain. Daily Max: 200 mg Reorder 02/01/2023 06/27/2023 blood glucose test strips One Touch Verio IQ or other brand compatible with meter and covered by patient's insurance. Testing QID. 08/11/2020 06/27/2023 blood glucose test strips Brand: Sante[employer]et Precision [place], use as directed if Freestyle Vignesh censor isnt working 10/06/2020 06/27/2023 blood glucose meterIndications:Type 2 diabetes mellitus with diabetic polyneuropathy, with long-term current use of insulin ([facility]) One Touch Verio Flex meter. 12/21/2021 06/27/2023 empagliflozin (JARDIANCE ORAL) Take by mouth. 06/27/2023 SEMGLEE,INSULIN GLARG-YFGN,PEN 100 unit/mL (3 mL) insulin pen INJECT 40 UNITS SUBCUTANEOUSLY AT BEDTIME 04/01/2023 06/27/2023 SITagliptin phosphate (JANUVIA) 100 mg tabletIndications:Type 2 diabetes mellitus with diabetic polyneuropathy, with long-term current use of insulin ([facility]) Take 1 Tablet by mouth daily. Reorder 11/17/2022 06/27/2023 insulin glargine (LANTUS SOLOSTAR/SEMGLEE) 100 unit/mL (3 mL) injection penIndications:Type 2 diabetes mellitus with diabetic polyneuropathy, with long-term current use of insulin ([facility]) Inject 40 Units into the skin at bedtime. Reorder 11/17/2022 06/27/2023 HUMALOG KWIKPEN INSULIN 100 unit/mL injectable penIndications:Type 2 diabetes mellitus with diabetic polyneuropathy, with long-term current use of insulin ([facility]) Inject 12 Units into the skin 3 times daily with meals. Reorder 04/04/2023 06/27/2023 SUMAtriptan (IMITREX) 20 mg/actuation nasal spray Instill 1 Negley into right nostril as needed for Migraine. Reorder 05/13/2023 06/27/2023 metoclopramide HCl (REGLAN) 10 mg tablet Take 1 Tablet by mouth 3 times daily before meals. Reorder 03/02/2022 06/27/2023 gabapentin (NEURONTIN) 300 mg capsuleIndications:Charo betic polyneuropathy associated with type 2 diabetes mellitus ([facility]) Take 1 Capsule by mouth every morning AND 3 Capsules at bedtime. Reorder 11/17/2022 06/27/2023 documented as of this encounter Care Teams Immunologist Relationship Specialty Start Date End Date Carly Calderon MD 1 [facility] [address] [place] [phone] PCP - General Internal Medicine - Primary Care 12/09/20 Abigail Díaz Director Intelligence Analysis Programs 04/21/23 documented as of this encounter
--- OUTSIDE RECORDS SUMMARY | 2023-12-16 00:32 | XMS_ITS | Encounter Summary ---
Author Organization [facility] Address [address] [place] [address] Care Team Providers Care Certified Diabetes Educator Name Role Phone Carrington Calderon MD Primary Care Provi anders Abigail Díaz Unavailable Reason for Visit * Reason Comments Med Change Request Encounter Details Date Type Department Care Team (Late st Contact Info) Description 06/27/2023 [facility] Adult Primary Care - [address] [address] Carrington Calderon MD [address] [phone] Med Change Request Social History Tobacco Use Types Packs/Day [...] in a intermediate (including now)? No 06/14/2023 Interpersonal Safety Answer Date Record ed How often does anyone, audrey waldron family, hit, punch or physically hurt you? 06/14/2023 How often does anyone, audrey waldron family, [...] encounter Miscellaneous Notes * Telephone Encounter - Sierra Jim, RN - 06/28/2023 1331 EST Medication(s) Requested: sumatriptan Preferred Pharmacy: [facility] Is patient out of medication? No Last Refill Date: 06/27/23 Refills available at pharmacy for requested medication. Request denied. SIERRA JIM RN 06/28/2023 13:31 documented in this encounter Plan of Treatment Upcoming Encounters Date Type Department Care Team (Late st Contact Info) Description 02/21/2024 9:45 EDT Office Visit [facility] Adult Primary Care - [address] [phone] Carrington Calderon MD [address] [phone] 02/27/2024 8:30 EDT Telemedicine [facility] Sleep Program - [address] [phone] Rn, Sleep 02/29/2024 10:30 EDT Appointment [facility] Radiology Nuclear Medicine and PET - [address] [phone] 02/29/2024 14:30 EDT Appointment [facility] Radiology Nuclear Medicine and PET - [address] [id number] 03/01/2024 8:00 EDT Appointment [facility] Radiology Nuclear Medicine and PET - [address] [address] 03/01/2024 9:30 EDT Appointment [facility] Rad[facility] Nuclear Medicine and PET - [address] [address] documented as of this encounter Visit Diagnoses Not on filedocumented in this encounter Care Teams Certified Diabetes Educator Relationship Specialty Start Date End Date Carrington Calderon MD 1 [facility] Level 1 [place] [phone] PCP - General Internal Medicine - Primary Care 12/09/20 Abigail Díaz Trailer Sections Assembler 04/21/23 documented as of this encounter
--- OUTSIDE RECORDS SUMMARY | 2023-12-16 00:32 | XMS_ITS | Encounter Summary ---
Author Organization [facility] Address [address] [place] [address] Care Team Providers Care Solar Photovoltaic Crew Lead Name Role Phone Carrington Calderon MD Primary Care Provi anders Abigail Díaz Unavailable [phone] Carmelo Hendrickson Unavailable Unavailable Reason for Referral * Referral (Routine/Next Available) - Authorization Not Required Specialty Diagnoses / Procedures Referred By Contac t Referred To Contact Multidisciplinary Diagnoses Encounter for screening involving social determinants of health (SDoH) Carrington Calderon MD 1 [facility] 1 [place] [address] [facility] Community Health Team [address] [facility], [address] [place] [address] Referral ID Status Reason Start Date Expiration Date Visits Requested Visits Authorized [id number] Authorization Not Required Specialty Services Required 4 1 1 Question Answer Reason for Request: apply for 3 squares and other relevant economic programs Encounter Details Date Type Department Care Team (Latest Contact Info) Description 11/15/2023 Patient Outreach [facility] Adult Primary Care - [address] [address]71 Abigail Díaz Encounter for screening involving social determinants of health (SDoH) (Primary Dx) Social History Tobacco Use Types Packs/Day Years Used Date Smoking Tobacco: Former Cigarettes 0.5 13.1 S tarted: 11/10/2010 Smokeless Tobacco: Never Comments:06/13/20 actively try ing to quit about 5-8 cigs/day Alcohol Use Standard Drinks/Week Comments Yes 0 (1 standard drink = 0.6 oz pur e alcohol) rarely [facility] Utilities Answer Date Recorded In the past 12 months has th e [employer], gas, oil, or water company threatened to [...] place to sleep or slept in a jail (including now)? No 06/14/2023 Housing Stability Vital Sign Answer Norm e Recorded In the last 12 months, was t here a time when you were not able to pay the mortgage or rent on time? No 11/15/2023 In the past 12 months, how m any times have you moved where you were living? 1 11/15/2023 At any time in the past 12 m [facility], were you homeless or living in a jail (including now)? No 11/15/2023 Interpersonal Safety Answer [...] Info) Description 02/21/2024 9:45 EDT Office Visit [facility] Adult Primary Care - [address] [phone] Carrington Calderon MD [address] [place] [phone] 02/27/2024 8:30 EDT Telemedicine [facility] Sleep Program - [address] [phone] Rn, Sleep 02/29/2024 10:30 EDT Appointment [facility] Radiology Nuclear Medicine and PET [address] [phone] 02/29/2024 14:30 EDT Appointment [facility] Radiology Nuclear Medicine and PET [address] [id number] 03/01/2024 8:00 EDT Appointment [facility] Radiology Nuclear Medicine and PET [address] [id number] 03/01/2024 9:30 EDT Appointment [facility] Radiology Nuclear Medicine and [address] [phone] Scheduled Referrals Name Type Priority Associated Diagnoses Order Schedule AMB CONS/FOLLOW UP OUTPATIENT CARE MANAGEMENT - [facility] Outpatient Referral Routine Consult Encounter for screening involving social determinants of health (SDoH) Expected: 11/22/2023 (Approximate), Expires: 11/14/2024 documented as of this encounter Visit Diagnoses Diagnosis Encounter for screening involving social determinants of health (SDoH)- Primary documented in this encounter Care Teams Solar Photovoltaic Crew Lead Relationship Specialty Start Date End Date Carrington Calderon MD [address] [place] [phone] PCP - General Internal Medicine - Primary Care 12/09/20 Abigail Díaz Living Manager 04/21/23 Carmelo Hendrickson Coordinator 12/01/23 documented as of this encounter
--- OUTSIDE RECORDS SUMMARY | 2023-12-16 00:32 | XMS_ITS | Encounter Summary ---
Author Organization [facility] Address [address] [place] [address] Care Team Providers Care Hematology Nurse Educator Name Role Phone Carrington Calderon MD Primary Care Provi anders Abigail Díaz Unavailable Carmelo Hendrickson Unavailable Unavailable Encounter Details Date Type Department Care Team (Late st Contact Info) Description 12/01/2023 Patient Outreach [facility] Adult Primary Care - [place] 1 [place], [place] [phone] Carmelo Hendrickson Social History Tobacco Use Types Packs/Day Years Used Date Smoking Tobacco: Every Day Cigarettes 0.5 13.1 Started: 11/10/2010 Smokeless Tobacco: Never Comments:06/13/20 actively try ing to quit about 5-8 cigs/day Alcohol Use Standard Drinks/Week Comments Yes 0 (1 standard drink = 0.6 oz pur e alcohol) rarely [facility] Utilities Answer Date Recorded In the past 12 months has [employer], gas, oil, or water [employer] threatened to shut off services in your [...] place to sleep or slept in a detention (including now)? No 06/14/2023 Housing Stability Vital Sign Answer Norm e Recorded In the last 12 months, was t here a time when you were not able to pay the mortgage or rent on time? No 11/15/2023 In the past 12 months, how m any times have you moved where you were living? 1 11/15/2023 At any time in the past 12 m [facility], were you homeless or living in a detention (including now)? No 11/15/2023 Interpersonal Safety Answer [...] encounter Progress Notes * Carmelo Hendrickson - 12/01/2023 1214 EDT [facility] Visual Basic Programmer Initial Note Referred by: Abigail Díaz [facility] PCP: Carrington Calderon Encounter type: Telephone Reason for Referral: Help with [employer] and other economic programs Notes: This head of human resources called Stella who was driving, made plan to call back tomorrow. Plan / Action Items: RC will follow up on 12/02/23 after 11am. Carmelo Hendrickson 12/01/23 12:15 documented in this encounter Plan of Treatment Upcoming Encounters Date Type Department Care Team (Late st Contact Info) Description 02/21/2024 9:45 EDT Office Visit [facility] [place] [address] Carrington Calderon MD 1 [facility] 1 [place] [phone] 02/27/2024 8:30 EDT Telemedicine [facility] Sleep Program - [address] [phone] Rn, Sleep 02/29/2024 10:30 EDT Appointment [facility] Radiology Nuclear Medicine and PET [address] [address] 02/29/2024 14:30 EDT Appointment [facility] Radiology Nuclear Medicine and PET [address] [address] 03/01/2024 8:00 EDT Appointment [facility] Radiology Nuclear Medicine and PET [address] [phone] 03/01/2024 9:30 EDT Appointment [facility] Radiology Nuclear Medicine and PET [address] [address] documented as of this encounter Visit Diagnoses Not on filedocumented in this encounter Care Teams Hematology Nurse Educator Relationship Specialty Start Date End Date Carrington Calderon MD 1 [facility] 1 [place] [phone] PCP - General Internal Medicine - Primary Care 12/09/20 Abigail Díaz Channel Account Manager 04/21/23 Carmelo Hendrickson Coordinator 12/01/23 documented as of this encounter
--- OUTSIDE RECORDS SUMMARY | 2023-12-16 00:32 | XMS_ITS | Encounter Summary ---
Author Organization [facility] Address [address] [place] [address] Care Team Providers Care Horticulture/Floriculture Teacher Name Role Phone Carrington Calderon MD Primary Care Provi anders Abigail Díaz Unavailable Carmelo eHndrickson Unavailable Unavailable Reason for Visit * Reason Comments Pre-op Exam Encounter Details Date Type Department Care Team (Late st Contact Info) Description 12/01/2023 15:45 EDT Office Visit [facility] Adult Primary Care - [place] 1 [place] [address] Nimisha Clifton NP 1 [facility] Level 1 [place] [phone] Neuropathic diabetic ulcer of foot (HCC-CMS) (Primary Dx); Pre-op exam Social History Tobacco Use Types Packs/Day Years Used Date Smoking Tobacco: Every Day Cigarettes 0.5 13.1 Started: 11/10/2010 Smokeless Tobacco: Never Tobacco Cessation:Ready to Q uit: Not Asked; Counseling Given: Not Answered Comments:06/13/20 actively trying to quit about 5-8 cigs/day Alcohol Use Standard Drinks/Week Comments Yes 0 (1 standard drink = 0.6 oz pur e alcohol) rarely [facility] Utilities Answer Date Recorded In the past 12 months has [employer], gas, oil, or water company threatened [...] place to sleep or slept in a fci (including now)? No 06/14/2023 Housing Stability Vital [...] time in the past [address] [facility], were you homeless or living in a fci (including now)? No 11/15/2023 Interpersonal Safety Answer [...] Rate 20 12/01/2023 1545 EDT Oxygen Saturation - - Inhaled Oxygen Concentration - - Weight 98 kg (216 lb) 12/01/2023 1545 EDT Height - - Body Mass Index 36.43 06/27/2023 1431 EST documented in this encounter [...] as of this encounter Progress Notes * Nimisha Clifton NP - 12/01/2023 1545 EDT Preoperative H&P Date of Service: 12/01/2023 Chief Complaint Patient presents with ??? Pre-op Exam Planned Procedure: left foot surgery - bone removal Surgeon: Dr. Ojeda Planned Procedure Date: to be scheduled Problem List Available or Initiated: yes HISTORY OF PRESENT ILLNESS: Cristy Luo is a 38 y.o., female, who presents today for preop exam. Has been followed closely by her court crier for ongoing foot infection, the plan is to try to remove or moved two bones per patient to help with healing of a chronic ulcer. This has not been scheduled, asked to come here forher preop exam first. Anticipate within the next 30 days Alcohol use -none Prior h/o of anesthetic complications no Prior h/o bleeding problems yes -heavy menses bleeding, no postop complications Prior h/o DVT/PE -patient reports blood clot in her leg this past winter, seen at outside emergency room. Believe they were told it was superficial, put on 3 days of anticoagulation with resolutionof symptoms, no follow-up for this. No issues with blood clots in the past related to surgery. Active Problem List Patient Active Problem List Diagnosis ??? Migraine with aura and without status migrainosus, not intractable ??? Anxiety and depression ??? Chronic left ear pain ??? Family history of rheumatoid arthritis ??? Chronic midline low back pain without sciatica ??? Type 2 diabetes mellitus with diabetic polyneuropathy, with long-term current use of insulin ([facility]) ([facility]) ??? Gastroparesis ??? Neuropathic diabetic ulcer of foot ([facility]) ??? Tobacco use ??? Skin infection ??? Pannus, abdominal PMH PSH Past Medical History: Diagnosis Date ??? Abnormal gag reflex pt notes she has a very strong gag reflex ??? Anxiety comes on fast typical c/p CP straight through my back it just happens when it happens - takes Ativan prn ??? Arthritis 12/05/19- Spine- told years ago ??? Back pain chronic low back pain ??? Chest pain r/t anxiety ??? Depression pt has a referral for therapy. ??? Diabetes ([facility]) A1c 10.3 on 11/28/2019 - poorly controlled ??? Diabetes mellitus, type 2 ([facility]) pt check blood sugars at home- X 7 average BG 95-200- ( was throwing up at the time) Last A1C: ??? Does not exercise 06/13/2020 due to infected toe- typically on a normal basis- walk 3 dogs and hiking- climbing stairs is not anissue. ??? Gastroparesis ??? History of general anesthesia ??? History of kidney stones about 10 yrs ago- passed on own ??? Hx of ectopic 06/20/2020 ??? Hx of migraines ??? Irritable bowel syndrome 06/13/2020 ? ? Nausea & vomiting occasionally ??? Neuropathic diabetic ulcer of foot ([facility]) 09/17/2021 ??? Obesity, unspecified ??? Osteomyelitis ([facility]) of left great toe-s/p amputation ??? Peripheral neuropathy 08/12/20- Bilateral feet-Takes Gabapentin- pt just started this med. ??? Productive cough pt currently quitting smoking- clear secretions. ??? Spontaneous miscarriage 09/04/201502/18, 08/19. Followed by Dr. López[facility] Past Surgical History: Procedure Laterality Date ??? BREAST CYST EXCISION Right lumpectomy- GA tolerated well. ??? DILATION AND CURETTAGE OF UTERUS ??? DILATION AND CURETTAGE OF UTERUS ??? DILATION AND CURETTAGE OF UTERUS ??? DILATION AND CURETTAGE OF UTERUS ??? DILATION AND CURETTAGE OF UTERUS ??? DILATION AND CURETTAGE OF UTERUS ??? DILATION AND CURETTAGE OF UTERUS ??? OTHER SURGICAL HISTORY tailbone (mostlikely pilonidal cyst) ??? PILONIDAL CYST EXCISION unknown was a teenager I think I did fine ??? TOE AMPUTATION Left 06/2020 Great toe- GA tolerated well. Social History Family history Social History Tobacco Use ??? Smoking status: Every Day Current packs/day: 0.50 Average packs/day: 0.5 packs/day for 13.1 years (6.5 ttl pk-yrs) Types: Cigarettes Start date: 11/10/2010 ??? Smokeless tobacco: Never ??? Tobacco comments: 06/13/20 actively trying to quit about 5-8 cigs/day Substance Use Topics ??? Alcohol use: Yes Comment: rarely Family History Problem Relation Age of Onset ??? Cancer Maternal Grandmother Breast ??? Diabetes Paternal Grandmother ??? Diabetes Maternal Aunt ??? Diabetes Paternal Aunt ??? Diabetes Paternal Uncle Medications Current Outpatient Medications Medication Sig Dispense Refill ??? acetaminophen (TYLENOL) 325 mg tablet Take 2 Tabs by mouth every 4 hours as needed for Pain. ??? Blood-Glucose Sensor (DEXCOM G6 SENSOR) device Inject 1 Each into the skin every 10 days. 9 Each 4 ??? Blood-Glucose Transmitter (DEXCOM G6 TRANSMITTER) device Inject 1 Each into the skin every 3 months. 1 Each 4 ??? DULoxetine 40 mg capsule,delayed release(DR/EC) Take 40 mg by mouth daily. 30 Capsule 11 ??? empagliflozin (JARDIANCE) 25 mg tablet Take 1 Tablet by mouth daily. 90 Tablet 4 ??? gabapentin (NEURONTIN) 300 mg capsule Take 1 Capsule by mouth every morning AND 4 Capsules at bedtime. 450 Capsule 4 ??? HUMALOG KWIKPEN INSULIN 100 unit/mL injectable pen 8 units with breakfast, 15 units with lunch/dinner 30 mL 11 ??? insulin glargine (LANTUS SOLOSTAR/SEMGLEE) 100 unit/mL (3 mL) injection pen Inject 44 Units into the skin at bedtime. 36 mL 4 ??? lidocaine 5 % (LIDODERM) 5 % patch Place 1 Patch onto the skin daily. Patch(es) may remain in place for up to 12 hours in any 24-hour period. 30 Patch 2 ??? LORazepam (ATIVAN) 0.5 mg tablet Take 1 Tablet by mouth daily as needed for Anxiety. Daily Max:0.5 mg 30 Tablet 3 ??? metoclopramide HCl (REGLAN) 10 mg tablet Take 1 Tablet by mouth 3 times daily before meals. Starting 3 days before menses and stopping after end of period 270 Tablet 3 ??? omeprazole (PRILOSEC) 20 mg capsule Take 1 Capsule by mouth daily. 90 Capsule 3 ??? ondansetron (ZOFRAN-ODT) 4 mg disintegrating tablet Take 1 Tablet by mouth every 8 hours as needed for Nausea. 30 Tablet 11 ??? prochlorperazine (COMPAZINE) 10 mg tablet Take 1 Tablet by mouth every 8 hours as needed for Nausea. 8 Tablet 11 ??? prochlorperazine (COMPAZINE) [address] 1 Suppository rectally every 12 hours as needed for Nausea. 6 Suppository 11 ??? SITagliptin phosphate (JANUVIA) 100 mg tablet Take 1 Tablet by mouth daily. 90 Tablet 4 ??? SUMAtriptan (IMITREX) 20 mg/actuation nasal spray USE 1 SPRAY(S) INTO RIGHT NOSTRIL NEEDED FOR MIGRAINE HEADACHE 6 Each 1 ??? traMADol (ULTRAM) 50 mg tablet Take 1 Tablet by mouth every 6 hours as needed for Pain. Daily Max: 200 mg 30 Tablet 5 ??? traZODone (DESYREL) 50 mg tablet Take 1 Tablet by mouth at bedtime. 30 Tablet 4 ??? ZOLMitriptan (ZOMIG) 2.5 mg tablet Take 1 Tablet by mouth 2 times daily. BID starting 2 days prior to onset of menses, continuing for a total of 5 days (10 doses) 10 Tablet 11 Current Facility-Administered Medications Medication Dose Route Frequency Provider Last Rate Last Admin ??? levonorgestreL (MIRENA) 21 mcg/24 hours (8 yrs) 52 mg IUD 1 Each 1 Each intrauterine CONTINUOUSIUD/LARC Kamini Veag MD 1 Each at 08/05/23 1318 Allergies Allergies Allergen Reactions ??? Citalopram Other (See Comments) suicidal ideation, approx 2012 ??? Other - See Comments Swelling of throat pomergrante ??? Advil [Ibuprofen] Hives Review of Systems Constitutional: Negative. HENT: Negative. Eyes: Negative. Respiratory: Negative. Negative for shortness of breath. Cardiovascular: Negative. Negative for chest pain, palpitations and orthopnea. Gastrointestinal: Negative. Genitourinary: Negative. Musculoskeletal: Negative. Skin: Negative. Neurological: Negative. Negative for loss of consciousness. Endo/Heme/Allergies: Negative. Does not bruise/bleed easily. Psychiatric/Behavioral: Negative. PHYSICAL EXAMINATION: BP 136/80 Pulse 78 Temp 36.9 ??C (98.4 ??F) (Tympanic) Resp 20 Wt 98 kg (216 lb) BMI 36.43 kg/m?? , Body mass index is 36.43 kg/m??. Physical Exam Constitutional: General: She is not in acute distress. HENT: Right Ear: External ear normal. Left Ear: External ear normal. Nose: Nose normal. Eyes: Conjunctiva/sclera: Conjunctivae normal. Pupils: Pupils are equal, round, and reactive to light. Neck: Thyroid: No thyromegaly. Cardiovascular: Rate and Rhythm: Normal rate and regular rhythm. Heart sounds: Normal heart sounds. Pulmonary: Effort: Pulmonary effort is normal. Breath sounds: Normal breath sounds. Abdominal: Palpations: Abdomen is soft. There is no mass. Tenderness: There is no abdominal tenderness. Musculoskeletal: Cervical back: Normal range of motion. Lymphadenopathy: Cervical: No cervical adenopathy. Skin: General: Skin is warm and dry. Neurological: Mental Status: She is alert. EKG: Not repeated IMPRESSION/Plan: Proceed with plan for surgery. Pt instructed to review preop paperwork from surgeon. To call if any questions or new illness symptoms. Nimisha Clifton NP 12/01/2023 16:23 documented in this encounter Plan of Treatment Upcoming Encounters Date Type Department Care Team (Late st Contact Info) Description 02/21/2024 9:45 EDT Office Visit [facility] Adult Primary Care - [address] [phone] Carrington Calderon MD [address] [place] [phone] 02/27/2024 8:30 EDT Telemedicine [facility] Sleep Program - [address] [phone] Rn, Sleep 02/29/2024 10:30 EDT Appointment [facility] Radiology Nuclear Medicine and PET - [address] [phone] 02/29/2024 14:30 EDT Appointment [facility] Radiology Nuclear Medicine and PET [address] [phone] 03/01/2024 8:00 EDT Appointment [facility] Radiology Nuclear Medicine and PET - [address] [address] 03/01/2024 9:30 EDT Appointment [facility] Nuclear Medicine and PET [address] [address] documented as of this encounter Visit Diagnoses Diagnosis Neuropathic diabetic ulcer of foot ([facility])- Primary Type II or unspecified type diabetes mellitus with other specified manifestations, not stated as uncontrolled Pre-op exam Preoperative examination, unspecified documented in this encounter Care Teams Horticulture/Floriculture Teacher Relationship Specialty Start Date End Date Carrington Calderon MD 1 [facility] 1 [place] [phone] PCP - General Internal Medicine - Primary Care 12/09/20 Abigail Díaz Senior Billing Consultant 04/21/23 Carmelo Hendrickson Coordinator 12/01/23 documented as of this encounter
--- OUTSIDE RECORDS SUMMARY | 2023-12-16 00:32 | XMS_ITS | Encounter Summary ---
Author Organization [facility] Address [address] [place] [address] Care Team Providers Care Orchid Grower Name Role Phone Carringotn Calderon MD Primary Care Provi anders Abigail Díaz Unavailable Reason for Visit * Reason Comments New Patient Visit * Consult (Routine/Next Available) - Specialty Report Received Specialty Diagnoses / Procedures [facility] Referred To Contact Hematology Diagnoses Night sweats Lymphocytosis Carrington Calderon MD 1 [facility] 1 [place] [address] [facility] Ep2 Hem/Onc [address] [place] [id number] Referral ID Status Reason Start Date Expiration Date Visits Requested Visits Authorized [id number] Specialty Report Received Specialty Services Required 06/27/2023 1 1 Encounter Details Date Type Department Care Team (Late st Contact Info) Description 08/05/2023 11:00 EST Office Visit [facility] Hematology & Oncology - [address] [phone] Josh Clayton MD 111 [facility] 2 [place] [phone] Bandemia (Primary Dx) Social History Tobacco Use Types [...] place to sleep or slept in a chcf (including now)? No 06/14/2023 Interpersonal Safety Answer Date Record ed How often does anyone, inclu ding family, hit, punch or physically hurt you? 06/14/2023 How often does anyone, inclu ding family, insult, scream, curse or threaten to hurt you? 06/14/2023 Sex and Gender Information Value Date Recorded Sex Assigned at Not on file Gender Identity Female 06/18/2019 8:54 EST Sexual Orientation Not on file documented as of this encounter Last Filed Vital Signs Vital Sign Reading Time Taken Comments Blood Pressure 133/79 08/05/2023 1107 EST Pulse 121 08/05/2023 1107 EST Temperature 36.6 ??C (97.8 ??F) 08/05/2023 1107 EST Respiratory Rate 16 08/05/2023 1107 EST Oxygen Saturation 96% 08/05/2023 1107 EST Inhaled Oxygen Concentration - - Weight 99.2 kg (218 lb 12.8 oz) 08/05/2023 1107 EST Height - - Body Mass Index 36.9 06/27/2023 1431 EST documented in this encounter [...] as of this encounter Progress Notes * Josh Clayton MD - 08/05/2023 1100 EST Patient: Cristy Luo : 1985 AGE: 38 y.o. Chief complaint: consultation for neutrophilia Referring Provider: Carrington Calderon History of present illness: 38 y.o. female who presents for evaluation. The patient is referred for workup of neutrophilia She is referred for the finding of chronically elevated WBC. She notes that she currently has an soft tissue infection in the left foot, with swelling up her leg starting yesterday. 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 In terms of other infections, she has had shingles, pneumonia a few times, and has gotten yeast infections in skin folds multiple times. She reports knee and low back pain from arthritis. ASSESSMENT AND PLAN: #neutrophilia: Review of prior labs shows persistent leukocytosis, neutrophil predominent for years, since 09/30/2020 and largely stable. WBC normal in August of 2020. Platelets flag as abnormal but are < 500 thusstill in the normal range at most labs. Peripheral flow cytometry was negative and smear unrevealing. Of note, she has known poorly controlled diabetes with most recent A1C 8.3, is an active chronic smoker, and has had recurrent diabetic foot ulcers. Medications reviewed, no steroid exposure. Poorly controlled diabetes, smoking, and infections are each independent established causes of leukocytosis and neutrophilia. Given negative flow, I am confident that the cause here is from underlying inflammation from these disorders. No further workup is required. I did encourage her to quit smoking asthis would likely lower the WBC. She also plans to go to urgent care right after this visit for assessment of the diabetic foot ulcer that is active and painful today. The total encounter time was 61 minutes in discussion of the specific disease, discussion of treatment modalities, conversations with collaborating physicians, review of scans and pathology results, and documentation. 08/05/2023 Josh Clayton MD Soda Dry House Operator, Division of Hematology / Oncology [facility] -------- NON FACE TO FACE PROLONGED SERVICES Date of related [id number] encounter 08/05/2023. Pre visit preparation performed on 07/29/23. Amountof Time 37 Minutes. Included: Review of outside records, imaging reports, pathology reports; Coordination of care and discussion with: Dr Calderon PMH, Medications: personally reviewed Family: maternal grandmother: breast cancer; maternal aunts: breast cancer. 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 Current smoker 1/2ppd for 10 years. No etoh. Physical Exam: Patient Vitals for the past 24 hrs: BP Temp Temp src Pulse Resp SpO2 Weight 08/05/23 1107 133/79 36.6 ??C (97.8 ??F) Skin (!) 121 16 96 % 99.2 kg (218 lb 12.8 oz) Gen: NAD HEENT: no oral ulcers Lungs: CTA b/l Heart: RRR Ab: no hepatosplenomegaly Ext: no leg edema Skin: left foot wrapped with pitting edema to ankle documented in this encounter Plan of Treatment Upcoming Encounters Date Type Department Care Team (Late st Contact Info) Description 02/21/2024 9:[address] [facility] Adult Primary Care - [address] [phone] Carrington Calderon MD [address] [place] [phone] 02/27/2024 8:[address] [facility] Sleep Program - [address] [phone] Rn, Sleep 02/29/2024 10:30 EDT Appointment [facility] Radiology Nuclear Medicine and PET [address] [phone] 02/29/2024 14:30 EDT Appointment [facility] Radiology Nuclear Medicine and PET [address] [phone] 03/01/2024 8:00 EDT Appointment [facility] Radiology Nuclear Medicine and PET [address] [phone] 03/01/2024 9:30 EDT Appointment [facility] Radiology Nuclear Medicine and PET [address] [phone] documented as of this encounter Visit Diagnoses Diagnosis Bandemia- Primary documented in this encounter Care Teams Orchid Grower Relationship Specialty Start Date End Date Carrington Calderon MD 1 [facility] 1 [place] [phone] PCP - General Internal Medicine - Primary Care 12/09/20 Abigail Díaz Shellfish Meat Separator Operator 04/21/23 documented as of this encounter
--- OUTSIDE RECORDS SUMMARY | 2023-12-16 00:32 | XMS_ITS | Encounter Summary ---
Author Organization [facility] Address [address] [place] [address] Care Team Providers Care Nurse Instructor Name Role Phone Carrington Calderon MD Primary Care Provi anders Abigail Díaz Unavailable [phone] Reason for Visit * Reason Onset Date Comments Appointment Related 06/20/2023 Encounter Details Date Type Department Care Team (Late st Contact Info) Description 06/20/2023 Telephone [facility] Adult Primary Care - [address] [address] Carrington Calderon MD 1 [facility] Level 1 [place] [phone] Appointment Related Social History Tobacco Use Types Packs/Day Years [...] place to sleep or slept in a fdc (including now)? No 06/14/2023 Interpersonal Safety Answer [...] encounter Miscellaneous Notes * Telephone Encounter - Jose Luis Wilson - 06/20/2023 3475 EST LVM for patient to get blood work done prior to upcoming visit on 06/27/23. Jose Luis Wilson 06/20/2023 15:40 documented in this encounter Plan of Treatment Upcoming Encounters Date Type Department Care Team (Late st Contact Info) Description 02/21/2024 9:45 EDT Office Visit [facility] Adult Primary Care - [address] [phone] Carrington Calderon MD [address] [phone] 02/27/2024 8:30 EDT Telemedicine [facility] Sleep Program - [address] [phone] Rn, Sleep 02/29/2024 10:30 EDT Appointment [facility] Radiology Nuclear Medicine and PET - [address] [address] 02/29/2024 14:30 EDT Appointment [facility] Radiology Nuclear Medicine and PET [address] [phone] 03/01/2024 8:00 EDT Appointment [facility] Radiology Nuclear Medicine and PET [address] [phone] 03/01/2024 9:30 EDT Appointment [facility] Radiology Nuclear Medicine and PET - [address] [phone] documented as of this encounter Visit Diagnoses Not on filedocumented in this encounter Care Teams Nurse Instructor Relationship Specialty Start Date End Date Carrington Calderon MD 1 [facility] 1 [place] [phone] PCP - General Internal Medicine - Primary Care 12/09/20 Abigail Díaz Cruise Consultant 04/21/23 documented as of this encounter
--- OUTSIDE RECORDS SUMMARY | 2023-12-16 00:32 | XMS_ITS | Encounter Summary ---
Author Organization [facility] Address [address] [place] [address] Care Team Providers Care Staff Occupational Therapist Name Role Phone Carrington Calderon MD Primary Care Provi anders Abigail Díaz Unavailable Carmelo Hendrickson Unavailable Unavailable Encounter Details Date Type Department Care Team (Late st Contact Info) Description 12/02/2023 Patient Outreach [facility] Adult Primary Care - [place] 1 [place], [place] [phone] Abigail Díaz Social History Tobacco Use Types Packs/Day Years Used Date Smoking Tobacco: Every Day Cigarettes 0.5 13.1 Started: 11/10/2010 Smokeless Tobacco: Never Comments:06/13/20 actively try ing to quit about 5-8 cigs/day Alcohol Use Standard Drinks/Week Comments Yes 0 (1 standard drink = 0.6 oz pur e alcohol) rarely [facility] Utilities Answer Date Recorded In the past 12 months has [place], gas, oil, or water company threatened to [...] place to sleep or slept in a penitentiary (including now)? No 06/14/2023 Housing Stability Vital Sign Answer Norm e Recorded In the last 12 months, was t here a time when you were not able to pay the mortgage or rent on time? No 11/15/2023 In the past 12 months, how m any times have you moved where you were living? 1 11/15/2023 At any time in the past 12 m [facility], were you homeless or living in a penitentiary (including now)? No 11/15/2023 Interpersonal Safety Answer [...] as of this encounter Progress Notes * Abigail Díaz - 12/02/2023 0905 EDT [facility] Glass Engraver Care Coordination Care management phone consult as scheduled, pt did not answer phone. real estate portfolio manager called and left voicemail requesting call back to reschedule. Additional outreach planned documented in this encounter Plan of Treatment Upcoming Encounters Date Type Department Care Team (Late st Contact Info) Description 02/21/2024 9:45 EDT Office Visit [facility] Adult Primary Care - [address] [phone] Carrington Calderon MD 1 [facility] Level 1 [place] [phone] 02/27/2024 8:30 EDT Telemedicine [facility] Sleep Program - [address] [address] Rn, Sleep 02/29/2024 10:30 EDT Appointment [facility] Radiology Nuclear Medicine and PET - [address] [address] 02/29/2024 14:30 EDT Appointment [facility] Radiology Nuclear Medicine and PET [address] [address] 03/01/2024 8:00 EDT Appointment [facility] Radiology Nuclear Medicine and PET - [address] [address] 03/01/2024 9:30 EDT Appointment [facility] Radiology Nuclear Medicine and PET [address] [phone] documented as of this encounter Visit Diagnoses Not on filedocumented in this encounter Care Teams Staff Occupational Therapist Relationship Specialty Start Date End Date Carrington Calderon MD [address] [place] [address] 1 [place] [phone] PCP - General Internal Medicine - Primary Care 12/09/20 Abigail Díaz Glass Engraver 04/21/23 Carmelo Hendrickson Coordinator 12/01/23 documented as of this encounter
--- OUTSIDE RECORDS SUMMARY | 2023-12-16 00:32 | XMS_ITS | Encounter Summary ---
Author Organization [facility] Address [address] [place] [address] Care Team Providers Care Public Speaking Professor Name Role Phone Carrington Calderon MD Primary Care Provi anders Abigail Díaz Unavailable Reason for Visit * Reason Comments Follow-up EST/ Gastroparesis/ Notes in scans * Consult (Routine) - Receiving Office to Obtain Authorization Specialty Diagnoses / Procedures Referred By Kit goode Referred To Contact Diagnoses Gastroparesis Dale Collier MD [address] [place] [address] [place] [address] [facility] [facility] [address] [place] [id number] Referral ID Status Reason Start Date Expiration Date Visits Requested Visits Authorized [id number] Receiving Office to Obtain Authorization Specialty Services Required 1 1 Encounter Details Date Type Department Care Team (Late st Contact Info) Description 05/13/2023 11:00 EST Office Visit [facility] Gastroenterology - [address] [phone] Scott Arzate MD 111 [facility] Level [address] [place] [phone] Cyclic vomiting syndrome (Primary Dx) Social History Tobacco Use Types [...] slept in a jail (including now)? No 11/17/2022 Interpersonal Safety Answer Date Record ed How often does anyone, inclu ding family, hit, punch or physically hurt you? Never 11/17/2022 How often does anyone, inclu ding family, insult, scream, curse or threaten to hurt you? Never 11/17/2022 Sex and Gender Information Value Date Recorded Sex Assigned at Not on file Gender Identity Female 06/18/2019 8:54 EST Sexual Orientation Not on file documented as of this encounter Last Filed Vital Signs Vital Sign Reading Time Taken Comments Blood Pressure 134/75 05/13/2023 1116 EST Pulse 109 05/13/2023 1116 EST Temperature - - Respiratory Rate - - Oxygen Saturation - - Inhaled Oxygen Concentration - - Weight 98.7 kg (217 lb 9.6 oz) 05/13/[address] Height - - Body Mass Index 35.93 11/17/2022 1026 EDT documented in this encounter Functional Status Functional [...] Dispensed Refills Start Date End Da te SUMAtriptan (IMITREX) 20 mg/actuation nasal spray Instill 1 [place] into right nostril as needed for Migraine. 6 Each 1 05/13/2023 06/27/2023 documented in this encounter Progress Notes * Scott Arzate MD - 05/13/2023 1100 EST Gastroenterology & Hepatology Follow Up Visit Reason for Referral: Chronic vomiting Referring Provider: Carrington Calderon HPI: Cristy Luo is a 36 year old woman with anxiety/depression, migraine, obesity, and diabetes, chronic back pain on tramadol as needed who is seen today in follow up for symptoms that at ourinitial visit sounded most consistent with either [facility] or [facility], in a background of diabetic gastroparesis. Since her last visit she did an extended trial off cannibis but had no improvement in symptoms. Shehas noticed that her symptoms seem to occur in association with menstrual cycles. Essentially she gets sudden vomiting and can't stop. There is really not much of a prodrome. Because of this, at her next appointment she is going to get in IUD. When she has episodes, zofran and the compazine suppository do help but overall it does not stop the cycle. She does not sleep well. She does get migrainesthat are usually associated with the vomiting cycles, where the migraine starts first. She is now on zomig for her migraines around the time of her menstrual cycle but this hasn't had an effect on the vomiting, however she does state it has been a couple of months since her last episode. She is also newly on duloxetine which she is titrating upwards with her PCP. She also has been getting better control of her diabetes recently with a dexcom, and her a1c is coming down. PMH: As stated in HPI. ROS: A 10-point ROS was performed and is negative other than stated in HPI. Current Outpatient Medications: ??? acetaminophen (TYLENOL) 325 mg tablet, Take 2 Tabs by mouth every 4 hours as needed for Pain., Disp: , Rfl: ??? blood glucose meter, One Touch Verio Flex meter., Disp: 1 Each, Rfl: 0 ??? blood glucose test strips, Brand: FreeStyle Precision Cristo, use as directed if Freestyle Vignesh censor isnt working, Disp: 100 Each, Rfl: 3 ??? blood glucose test strips, One Touch Verio IQ or other brand compatible with meter and covered by patient's insurance. Testing QID., Disp: 100 Each, Rfl: 5 ??? Blood-Glucose Sensor (DEXCOM G6 SENSOR) device, Inject 1 Each into the skin every 10 days., Disp: 9 Each, Rfl: 4 ??? Blood-Glucose Transmitter (DEXCOM G6 TRANSMITTER) device, Inject 1 Each into the skin every 3 months., Disp: 1 Each, Rfl: 4 ??? DULoxetine 40 mg capsule,delayed release(DR/EC), Take 40 mg by mouth daily., Disp: 30 Capsule, Rfl: 11 ??? empagliflozin (JARDIANCE ORAL), Take by mouth., Disp: , Rfl: ??? gabapentin (NEURONTIN) 300 mg capsule, Take 1 Capsule by mouth every morning AND 3 Capsules at bedtime., Disp: 360 Capsule, Rfl: 4 ??? HUMALOG KWIKPEN INSULIN 100 unit/mL injectable pen, Inject 12 Units into the skin 3 times dailywith meals., Disp: 30 mL, Rfl: 1 ??? insulin glargine (LANTUS SOLOSTAR/SEMGLEE) 100 unit/mL (3 mL) injection pen, Inject 40 Units into the skin at bedtime., Disp: 36 mL, Rfl: 4 ??? lidocaine 5 % (LIDODERM) 5 % patch, Place 1 Patch onto the skin daily. Patch(es) may remain in place for up to 12 hours in any 24-hour period., Disp: 30 Patch, Rfl: 2 ??? LORazepam (ATIVAN) 0.5 mg tablet, Take 1 Tablet by mouth daily as needed for Anxiety. Daily Max: 0.5 mg, Disp: 30 Tablet, Rfl: 3 ??? metoclopramide HCl (REGLAN) 10 mg tablet, Take 1 Tablet by mouth 3 times daily before meals., Disp: 270 Tablet, Rfl: 3 ??? omeprazole (PRILOSEC) 20 mg capsule, Take 1 Capsule by mouth daily., Disp: 90 Capsule, Rfl: 3 ??? ondansetron (ZOFRAN-ODT) 4 mg disintegrating tablet, Take 1 Tablet by mouth every 8 hours as needed for Nausea., Disp: 30 Tablet, Rfl: 11 ??? prochlorperazine (COMPAZINE) 10 mg tablet, Take 1 Tablet by mouth every 8 hours as needed for Nausea., Disp: 8 Tablet, Rfl: 11 ??? prochlorperazine (COMPAZINE) 25 mg suppository, Place 1 Suppository rectally every 12 hours as needed for Nausea., Disp: 6 Suppository, Rfl: 11 ??? SEMGLEE,INSULIN GLARG-YFGN,PEN 100 unit/mL (3 mL) insulin pen, INJECT 40 UNITS SUBCUTANEOUSLY AT BEDTIME, Disp: 12 mL, Rfl: 3 ??? SITagliptin phosphate (JANUVIA) 100 mg tablet, Take 1 Tablet by mouth daily., Disp: 90 Tablet, Rfl: 4 ??? traMADol (ULTRAM) 50 mg tablet, Take 1 Tablet by mouth every 6 hours as needed for Pain. Daily Max: 200 mg, Disp: 30 Tablet, Rfl: 5 ??? ZOLMitriptan (ZOMIG) 2.5 mg tablet, Take 1 Tablet by mouth 2 times daily. BID starting 2 days prior to onset of menses, continuing for a total of 5 days (10 doses), Disp: 10 Tablet, Rfl: 11 Allergies Allergen Reactions ??? Citalopram Other (See Comments) suicidal ideation, approx 2012 ??? Other - See Comments Swelling of throat pomergrante ??? Advil [Ibuprofen] Hives Social History: Daily use of marijuana, mostly at bedtime Family History: No family history of IBD Physical Exam: VS: BP 134/75 Pulse (!) 109 Wt 98.7 kg (217 lb 9.6 oz) BMI 35.93 kg/m?? General: In NAD, Appropriately conversant HEENT: No scleral icterus, MMM Lungs: Easy work of breathing Extremities: No peripheral edema Skin: No jaundice EKG 12/20/22: QTc 423 Impression: Cristy Luo is a 36 year old woman with uncontrolled diabetes, anxiety/depression. She is seen in follow up for episodic vomiting that is most consistent with cyclic vomiting syndrome. Plan: - Agree with plans for IUD as the symptoms seem to occur around her menstrual cycle - Currently uptitrating duloxetine with PCP. If despite this her symptoms persist then could consider addition of a TCA which has been shown to be effective in [facility] - For aborting an episode recommended taking zofran 8 mg, compazine supp, sumatriptan nasal spray. - Stressed the importance of ongoing good control of diabetes which she is making progress on. - Follow up in 6 months Scott Arzate MD Gastroenterology & Hepatology documented in this encounter Plan of Treatment Upcoming Encounters Date Type Department Care Team (Late st Contact Info) Description 02/21/2024 9:45 EDT Office Visit [facility] Adult Primary Care - [address] [address] Carrington Calderon MD [address] [phone] 02/27/2024 8:30 EDT Telemedicine [facility] Sleep Program - [address] [phone] Rn, Sleep 02/29/2024 10:30 EDT Appointment [facility] Radiology Nuclear Medicine and PET [address] [address] 02/29/2024 14:30 EDT Appointment [facility] Radiology Nuclear Medicine and PET [address] [phone] 03/01/2024 8:00 EDT Appointment [facility] Radiology Nuclear Medicine and PET [address] [phone] 03/01/2024 9:30 EDT Appointment [facility] Radiology Nuclear Medicine and PET [address] [phone] documented as of this encounter Visit Diagnoses Diagnosis Cyclic vomiting syndrome- Primary Persistent vomiting documented in this encounter Care Teams Public Speaking Professor Relationship Specialty Start Date End Date Carrington Calderon MD [address] [phone] PCP - General Internal Medicine - Primary Care 12/09/20 Abigail Díaz Supervisor Fine Grading 04/21/23 documented as of this encounter
--- OUTSIDE RECORDS SUMMARY | 2023-12-16 00:32 | XMS_ITS | Encounter Summary ---
Author Organization [facility] Address [address] [place] [address] Care Team Providers Care Insight Leader Name Role Phone Carrington Calderon MD Primary Care Provi anders Abigail Díaz Unavailable [phone] Carmelo Hendrickson Unavailable Unavailable Reason for Visit * Reason Onset Date Comments Medications Refill 07/06/2023 Encounter Details Date Type Department Care Team (Late st Contact Info) Description 07/06/2023 Refill [facility] Adult Primary Care - [address] [phone] Carrington Calderon MD 1 [facility] Level 1 [place] [phone] Medications Refill Social History Tobacco Use Types Packs/Day Years [...] place to sleep or slept in a alf (including now)? No 06/14/2023 Interpersonal Safety Answer [...] Dispensed Refills Start Date End Da te Blood-Glucose Transmitter (DEXCOM G6 TRANSMITTER) deviceIndications:Type 2 diabetes mellitus with diabetic polyneuropathy, with long-term current use of insulin ([facility]) Inject 1 Each into the skin every 3 months. 1 Each 4 07/07/2023 documented in this encounter Miscellaneous Notes * Telephone Encounter - Berenice Mahan - 07/06/2023 0953 EST Medication(s) Requested/ Last Ordered: Dexcom Transmitter 03/16/23 [address]erred Pharmacy: [facility] [address] [place] [address] Is patient out of medication? Yes Last Visit Date with Ordering Provider: 06/27/2023 Next Non-Acute Visit Date Scheduled with Care Team: 08/15/2023 Berenice Mahan 07/06/2023 9:54 documented in this encounter Plan of Treatment Upcoming Encounters Date Type Department Care Team (Late st Contact Info) Description 02/21/2024 9:45 EDT Office Visit [facility] Adult Primary Care - [address] [phone] Carrington Calderon MD 1 [facility] 1 [place] [phone] 02/27/2024 8:30 EDT Telemedicine [facility] Sleep Program - [address] [phone] Rn, Sleep 02/29/2024 10:30 EDT Appointment [facility] Radiology Nuclear Medicine and PET - [address] [address] 02/29/2024 14:30 EDT Appointment [facility] Radiology Nuclear Medicine and PET - [address] [address] 03/01/2024 8:00 EDT Appointment [facility] Radiology Nuclear Medicine and PET - [address] [address] 03/01/2024 9:30 EDT Appointment [facility] Radiology Nuclear Medicine and PET - [address] [address] documented as of this encounter Visit Diagnoses Diagnosis Type 2 diabetes mellitus with diabetic polyneuropathy, with long-term current use of insulin ([facility]) ([facility]) documented in this encounter Discontinued Medications Medication Sig Discontinue Reason Start Date End Da te Blood-Glucose Transmitter (DEXCOM G6 TRANSMITTER) deviceIndications:Type 2 diabetes mellitus with diabetic polyneuropathy, with long-term current use of insulin ([facility]) Inject 1 Each into the skin every 3 months. Reorder 03/16/2023 07/06/2023 documented as of this encounter Care Teams Insight Leader Relationship Specialty Start Date End Date Carrington Calderon MD 1 [facility] 1 [place] [address] PCP - General Internal Medicine - Primary Care 12/09/20 Abigail Díaz Senior Living Advisor 04/21/23 Carmelo Hendrickson Coordinator 12/01/23 documented as of this encounter
--- OUTSIDE RECORDS SUMMARY | 2023-12-16 00:32 | XMS_ITS | Encounter Summary ---
Author Organization [facility] Address [address] [place] [address] Care Team Providers Care Drum Stenciler Name Role Phone Carrington Calderon MD Primary Care Provi anders Abigail Díaz Unavailable Encounter Details Date Type Department Care Team (Late st Contact Info) Description 05/26/2023 Patient Outreach [facility] Adult Primary Care - [place] 1 [place], [place] [phone] Abigail Díaz Social History Tobacco Use Types [...] place to sleep or slept in a retirement (including now)? No 11/17/2022 Interpersonal Safety Answer [...] encounter Progress Notes * Abigail Díaz - 05/26/2023 1400 EST [facility] Appointment Manager Care Coordination Care management phone consult/visit as scheduled, Stella was not available when called by [facility]. aquaculture farm manager left voicemail requesting call back to reschedule if needed [facility] sent MyCHart Letter, no further outreach will be conducted documented in this encounter Plan of Treatment Upcoming Encounters Date Type Department Care Team (Late st Contact Info) Description 02/21/2024 9:45 EDT Office Visit [facility] Adult Primary Care - [address] [phone] Carrington Calderon MD [address] [phone] 02/27/2024 8:30 EDT Telemedicine [facility] Sleep Program - [address] [address] Rn, Sleep 02/29/2024 10:30 EDT Appointment [facility] Radiology Nuclear Medicine and PET - [address] [address] 02/29/2024 14:30 EDT Appointment [facility] Radiology Nuclear Medicine and PET - [address] [address] 03/01/2024 8:00 EDT Appointment [facility] Radiology Nuclear Medicine and PET - [address] [address] 03/01/2024 9:30 EDT Appointment [facility] Radiology Nuclear Medicine and PET [address] [address] documented as of this encounter Visit Diagnoses Not on filedocumented in this encounter Care Teams Drum Stenciler Relationship Specialty Start Date End Date Carrington Calderon MD 1 [facility] 1 [place] [address] PCP - General Internal Medicine - Primary Care 12/09/20 Abigail Díaz Appointment Manager 04/21/23 documented as of this encounter
--- OUTSIDE RECORDS SUMMARY | 2023-12-16 00:32 | XMS_ITS | Encounter Summary ---
Author Organization [facility] Address [address] [place] [address] Care Team Providers Care Broth Setter Name Role Phone Carrington Calderon MD Primary Care Provi anders NelsyScarsdaleAbigail Unavailable Encounter Details Date Type Department Care Team (Late st Contact Info) Description 11/11/2023 13:30 EDT Phlebotomy Only [facility] Laboratory Services - [address] [address] [employer], [facility] Abnormal thyroid blood test; Encounter for screening for other viral diseases Social History Tobacco Use Types Packs/Day Years Used Date Smoking Tobacco: Former Cigarettes 0.5 13.1 S tarted: 11/10/2010 Smokeless Tobacco: Never Comments:06/13/20 actively try ing to quit about 5-8 cigs/day Alcohol Use Standard Drinks/Week Comments Yes 0 (1 standard drink = 0.6 oz pur e alcohol) rarely [facility] Utilities Answer Date Recorded In the past 12 months has [place], gas, oil, or water [employer] threatened to shut off services in your [...] slept in a residential (including now)? No 06/14/2023 Housing Stability Vital [...] time in the past 12 m [facility], were you homeless or living in a residential (including now)? No 11/15/2023 Interpersonal Safety Answer [...] as of this encounter Miscellaneous Notes * Result Encounter Note - Carrington Calderon MD - 11/11/2023 1330 EDT Stella, Waiting for some of these [...] this without the supplement on board. Enzo * Result Encounter Note - Carrington Calderon MD - 11/11/2023 1330 EDT Can someone touch base with Stella to see if she is taking vitamins/supplements that may have biotin? She hasn't responded to my message below. documented in this encounter Plan of Treatment Upcoming Encounters Date Type Department Care Team (Late st Contact Info) Description 02/21/2024 9:45 EDT Office Visit [facility] Adult Primary Care - [address] [address] Carrington Calderon MD 1 [facility] 1 [place] [address] 02/27/2024 8:30 EDT Telemedicine [facility] Sleep Program - [address] [address] Rn, Sleep 02/29/2024 10:30 EDT Appointment [facility] Radiology Nuclear Medicine and PET [address] [phone] 02/29/2024 14:30 EDT Appointment [facility] Radiology Nuclear Medicine and PET [address] [id number] 03/01/2024 8:00 EDT Appointment [facility] Radiology Nuclear Medicine and PET [address] [address] 03/01/2024 9:30 EDT Appointment [facility] Radiology Nuclear Medicine and PET [address] [address] documented as of this encounter Procedures Procedure Name Priority Date/Time Associated Diagnosis Comments THYROID CASCADE Routine 11/11/2023 13:53 EDT Abnormal thyroid blood test HEPATITIS C AB W REFLEX TO HCV RNA BY PCR Routine 11/11/2023 13:53 EDT Encounter for screening for other viral diseases HEPATITIS B PROFILE Routine 11/11/2023 1 3:53 EDT Encounter for screening for other viral diseases HIV 1/2 ANTIGEN AND ANTIBODY, 4TH GENERATION Routine 11/11/2023 13:53 EDT Encounter for screening for other viral diseases T3, TOTAL Today 11/11/2023 13:53 EDT Abnormal thyroid blood test T4 FREE Today 11/11/2023 13:53 EDT Abnormal thyroid blood test documented in this encounter Results * T3, TOTAL (11/11/2023 13:53 EDT) T3, Total 137 97 - 169 ng/dL 11/11/2023 17:27 EDT [facility] Blood VENOUS BLOOD / Unknown Venipuncture / Unknown 11/11/2023 13:53 EDT 11/11/2023 13:55 EDT Carrington Calderon MD CHEMISTRY & BLOOD GAS ORDERABLES Performing Organization Address City/[facility]/ZIP Co de Phone Number [facility] [address] [place] [address] * T4 FREE (11/11/2023 13:53 EDT) T4, Free 1.1 0.8 - 2.2 ng/dL 11/11/2023 16:08 EDT [facility] Blood VENOUS BLOOD / Unknown Venipuncture / Unknown 11/11/2023 13:53 EDT 11/11/2023 13:55 EDT Carrington Calderon MD CHEMISTRY & BLOOD GAS ORDERABLES [facility] [address] [place] [address] * HIV 1/2 ANTIGEN AND ANTIBODY, 4TH GENERATION (11/11/2023 13:53 EDT) HIV 1 and 2 Antibody/p24 Antigen, 4th Generation Negative Negative 11/11/2023 17:04 EDT [facility] Comment:If acute HIV-1 infec tion is suspected in a high risk patient, submit plasma specimen for HIV-1 RNA quantitation test. Blood VENOUS BLOOD / Unknown Venipuncture / Unknown 11/11/2023 13:53 EDT 11/11/2023 13:55 EDT Narrative [facility] - 11/11/2023 17:04 EDT Fourth Generation assay performed on the Siemens Noahaur XPT. Carrington Calderon MD IMMUNOLOGY AND SEROLOGY ORDERABLES Performing Organization Address City/[facility]/ZIP Co de Phone Number [facility] [address] [place] [address] * HEPATITIS C AB W REFLEX TO HCV RNA BY PCR (11/11/2023 13:53 EDT) Hep C Antibody Negative Negative 11/11/2023 17:03 EDT [facility] Blood VENOUS BLOOD / Unknown Venipuncture / Unknown 11/11/2023 13:53 EDT 11/11/2023 13:55 EDT Carrington Calderon MD CHEMISTRY & BLOOD GAS ORDERABLES Performing Organization Address City/[facility]/ZIP Co de Phone Number [facility] [address] [place] [address] * HEPATITIS B PROFILE (11/11/2023 13:53 EDT) Hep B Surface Ag Negative Negative 11/11/19 17:04 EDT [facility] Hep B Surface Ab, Quantitative <3.1 See Note mIU/mL 11/11/2023 17:04 EDT [facility] Comment: Reference Range for Hep B Surface Ab, Quant: Positive: >= 10.0 mIU/mL Negative: ??< 10.0 mIU/mL Patient is presumed to not be immune to infection with Hepatitis B Virus. Hep B Surface Ab, Qualitative Negative See Note 11/11/2023 17:04 EDT [facility] Comment: Reference Range for Hep B Surface Ab, Qual: Unvaccinated: ??Negative Vaccinated: ??Positive Hepatitis B Core Ab, Total Negative Negative 11/11/2023 17:04 EDT [facility] Blood VENOUS BLOOD / Unknown Venipuncture / Unknown 11/11/2023 13:53 EDT 11/11/2023 13:55 EDT Carrington Calderon MD CHEMISTRY & BLOOD GAS ORDERABLES [facility] [address] [place], [place] [address] * (ABNORMAL) THYROID CASCADE (11/11/2023 13:53 EDT) TSH 0.37(L) 0.47 - 4.68 mIU/L 11/11/2023 15:38 EDT [facility] Blood VENOUS BLOOD / Unknown Venipuncture / Unknown 11/11/2023 13:53 EDT 11/11/2023 13:55 EDT Narrative [facility] - 11/11/2023 15:38 EDT NOTE: The results of this assay can be falsely lowered due to the consumption of Biotin. Carrington Calderon MD CHEMISTRY & BLOOD GAS ORDERABLES Performing Organization Address City/[facility]/ZIP Co de Phone Number [facility] [address] [place], [place] [address] documented in this encounter Visit Diagnoses Diagnosis Abnormal thyroid blood test Nonspecific abnormal results of thyroid function study Encounter for screening for other viral diseases documented in this encounter Care Teams Broth Setter Relationship Specialty Start Date End Date Carrington Calderon MD 1 [facility] 1 [place] [address] PCP - General Internal Medicine - Primary Care 12/09/20 Abigail Díaz Alumni Relations Coordinator 04/21/23 documented as of this encounter
--- OUTSIDE RECORDS SUMMARY | 2023-12-16 00:32 | XMS_ITS | Encounter Summary ---
Author Organization [facility] Address [address] [place] [address] Care Team Providers Care Chief Engineer'S Helper Name Role Phone Carrington Calderon MD Primary Care Provi anders BarahonaJameyOlmitzAbigail Unavailable Reason for Referral * Radiology Services (Routine/Next Available) - Authorization Not Required Specialty Diagnoses / Procedures Referred By Contac t Referred To Contact Diagnoses Pain in right ankle and joints of right foot Procedures XR ANKLE RIGHT 3 OR MORE VIEWS Kylah Vázquez PA [address] [place] [phone] [facility] Referral ID Status Reason Start Date Expiration Date Visits Requested Visits Authorized [id number] Authorization Not Required 07/25/2023 1 1 Reason for Visit * Radiology Services (Routine/Next Available) - Authorization Not Required Specialty Diagnoses / Procedures Referred By Contac t Referred To Contact Diagnoses Pain in right ankle and joints of right foot Procedures XR ANKLE RIGHT 3 OR MORE VIEWS Kylah Vázquez PA [address] [place] [phone] [facility] Referral ID Status Reason Start Date Expiration Date Visits Requested Visits Authorized [id number] Authorization Not Required 07/25/2023 1 1 Encounter Details Date Type Department Care Team (Latest Contact Info) Description 07/25/2023 13:24 EST - 07/25/2023 23:59 EST [facility] Radiology Xray Outpatient - [address] [address] Pain in right ankle and joints of right foot Discharge Disposition: Home or Self Care Social History Tobacco Use Types Packs/Day Years [...] place to sleep or slept in a prison (including now)? No 06/14/2023 Interpersonal Safety Answer [...] No 10/02/2020 documented as of this encounter Medications at Time of Discharge Medication Sig Dispensed Refills Start Date End Date acetaminophen (TYLENOL) 325 mg tablet Take 2 Tabs by mouth every 4 hours as needed for Pain. 08/20/2020 Blood-Glucose Sensor (DEXCOM G6 SENSOR) deviceIndications:Typ e 2 diabetes mellitus with diabetic polyneuropathy, with long-term current use of insulin ([facility]) Inject 1 Each into the skin every 10 days. 9 Each 4 03/16/2023 Blood-Glucose Transmitter (DEXCOM G6 TRANSMITTER) deviceIndications:Typ e 2 diabetes mellitus with diabetic polyneuropathy, with long-term current use of insulin ([facility]) Inject 1 Each into the skin every 3 months. 1 Each 4 07/07/2023 DULoxetine 40 mg capsule,delayed release(DR/EC)Indicat ions:Anxiety and depression Take 40 mg by mouth daily. 30 Capsule 12/17/2022 empagliflozin (JARDIANCE) 25 mg tabletIndications:Typ e 2 diabetes mellitus with diabetic polyneuropathy, with long-term current use of insulin ([facility]) Take 1 Tablet by mouth daily. 90 Tablet 06/27/2023 gabapentin (NEURONTIN) 300 mg capsuleIndications:Di abetic polyneuropathy associated with type 2 diabetes mellitus ([facility]) Take 1 Capsule by mouth every morning AND 4 Capsules at bedtime. 450 Capsule 06/27/2023 insulin glargine (LANTUS SOLOSTAR/SEMGLEE) 100 unit/mL (3 mL) injection penIndications:Type 2 diabetes mellitus with diabetic polyneuropathy, with long-term current use of insulin ([facility]) Inject 44 Units into the skin at bedtime. 36 mL 06/27/2023 lidocaine 5 % (LIDODERM) 5 % patchIndications:Equipment Scheduler gordo midline low back pain without sciatica Place 1 Patch onto the skin daily. Patch(es) may remain in place for up to 12 hours in any 24-hour period. 30 Patch 2 09/02/2022 LORazepam (ATIVAN) 0.5 mg tabletIndications:Anx iety Take 1 Tablet by mouth daily as needed for Anxiety. Daily Max: 0.5 mg 30 Tablet 06/27/2023 metoclopramide HCl (REGLAN) 10 mg tablet Take 1 Tablet by mouth 3 times daily before meals. Starting 3 days before menses and stopping after end of period 270 Tablet 06/27/2023 omeprazole (PRILOSEC) 20 mg capsuleIndications:Ga stroparesis Take 1 Capsule by mouth daily. 90 Capsule 12/17/2022 ondansetron (ZOFRAN-ODT) 4 mg disintegrating tabletIndications:Cyc lic vomiting syndrome Take 1 Tablet by mouth every 8 hours as needed for Nausea. 30 Tablet 06/27/2023 prochlorperazine (COMPAZINE) 10 mg tabletIndications:Cyc lic vomiting syndrome Take 1 Tablet by mouth every 8 hours as needed for Nausea. 8 Tablet 12/17/2022 prochlorperazine (COMPAZINE) 25 mg suppositoryIndication s:Cyclic vomiting syndrome Place 1 Suppository rectally every 12 hours as needed for Nausea. 6 Suppository 11 12/17/2022 SITagliptin phosphate (JANUVIA) 100 mg tabletIndications:Typ e 2 diabetes mellitus with diabetic polyneuropathy, with long-term current use of insulin ([facility]) Take 1 Tablet by mouth daily. 90 Tablet 4 06/27/2023 SUMAtriptan (IMITREX) 20 mg/actuation nasal spray USE 1 SPRAY(S) INTO RIGHT NOSTRIL NEEDED FOR MIGRAINE HEADACHE 6 Each 1 06/29/2023 traMADol (ULTRAM) 50 mg tabletIndications:Chr onic midline low back pain without sciatica Take 1 Tablet by mouth every 6 hours as needed for Pain. Daily Max: 200 mg 30 Tablet 5 06/27/2023 ZOLMitriptan (ZOMIG) 2.5 mg tabletIndications:Cat amenial disorder,Migraine with aura and without status migrainosus, not intractable,Cyclic vomiting syndrome Take 1 Tablet by mouth 2 times daily. BID starting 2 days prior to onset of menses, continuing for a total of 5 days (10 doses) 10 Tablet 11 12/17/2022 HUMALOG KWIKPEN INSULIN 100 unit/mL injectable penIndications:Type 2 diabetes mellitus with diabetic polyneuropathy, with long-term current use of insulin ([facility]) 8 units with breakfast, 12 units with lunch/dinner 30 mL 11 06/27/2023 11/11/2023 documented as of this encounter Discharge Disposition Disposition Code Departure Means Destination Home or Self Care documented in this encounter Plan of Treatment Upcoming Encounters Date Type Department Care Team (Late st Contact Info) Description 02/21/2024 9:45 EDT Office Visit [facility] Adult Primary Care - [address] [phone] Carrington Calderon MD [address] [phone] 02/27/2024 8:30 EDT Telemedicine [facility] Sleep Program - [address] [phone] Rn, Sleep 02/29/2024 10:30 EDT Appointment [facility] Radiology Nuclear Medicine and PET - [address] [address] 02/29/2024 14:30 EDT Appointment [facility] Radiology Nuclear Medicine and PET - [address] [address] 03/01/2024 8:00 EDT Appointment [facility] Radiology Nuclear Medicine and PET - [address] [address] 03/01/2024 9:30 EDT Appointment [facility] Radiology Nuclear Medicine and PET - [address] [address] documented as of this encounter Procedures Procedure Name Priority Date/Time Associated Diagnosis Comments XR ANKLE RIGHT 3 OR MORE VIEWS Routine 07/25/2023 13:43 EST Pain in right ankle and joints of right foot documented in this encounter Results * XR ANKLE RIGHT 3 OR MORE VIEWS (07/25/2023 13:43 EST) Anatomical Region Laterality Modality Lower Extremities, Ankle Right Compute d Radiography 07/25/2023 16:1 2 EST Impressions 07/25/2023 16:12 EST FINDINGS / IMPRESSION: 3 nonweightbearing views of the right ankle show no fracture or malalignment. There are mild degenerative changes and there is a large enthesopathic spur on the plantar surface of the calcaneus. [id number] Narrative 07/25/2023 16:12 EST EXAM/TECHNIQUE: XR ANKLE RIGHT 3 OR MORE VIEWS ??07/25/2023 1:29 PM HISTORY: ?? PAIN IN ANKLE AND JOINTS OF RIGHT FOOT;M25.571:Pain in right ankle and joints of right foot COMPARISON: None. Procedure Note Zak Maya, DO - 07/25/2023 EXAM/TECHNIQUE: XR ANKLE RIGHT 3 OR MORE VIEWS 07/25/2023 1:29 PM HISTORY: PAIN IN ANKLE AND JOINTS OF RIGHT FOOT;M25.571:Pain in right ankle andjoints of right foot COMPARISON: None. IMPRESSION FINDINGS / IMPRESSION: 3 nonweightbearing views of the right ankle show no fracture ormalalignment. There are mild degenerative changes and there is a largeenthesopathic spur on the plantar surface of the calcaneus. [id number] Kylah DAWSON IMG DIAGNOSTIC IMAGI NG ORDERABLES documented in this encounter Visit Diagnoses Diagnosis Pain in right ankle and joints of right foot documented in this encounter Care Teams Chief Engineer'S Helper Relationship Specialty Start Date End Date Carrington Calderon MD 1 [facility] 1 [place] [phone] PCP - General Internal Medicine - Primary Care 12/09/20 Abigail Díaz Toll Collector 04/21/23 documented as of this encounter
--- OUTSIDE RECORDS SUMMARY | 2023-12-16 00:32 | XMS_ITS | Encounter Summary ---
Author Organization [facility] Address [address] [place] [address] Care Team Providers Care Curator [employer] Name Role Phone Carrington Calderon MD Primary Care Provi anders Abigail Díaz Unavailable Reason for Visit * Reason Comments Nicotine Dependence Encounter Details Date Type Department Care Team (Late st Contact Info) Description 05/17/2023 Community Health Team [facility] Adult Primary Care - [place] [address] [place], [place] [phone] Kylah Wilson Social History Tobacco Use Types Packs/Day Years [...] slept in a correction (including now)? No 11/17/2022 Interpersonal Safety Answer [...] No 10/02/2020 Cognitive Status Response Date of Assess ent Because of a physical, menta l, or emotional condition, do you have serious difficulty concentrating, remembering, or making decisions? (5 years old or older) No 10/02/2020 documented as of this encounter Progress Notes * Kylah Wilson - 05/17/2023 0939 EST Outgoing call placed to pt to check in on tobacco cessation support. Stella stated that she was currently with her in the hospital. We agreed to check in next week. Follow up scheduled 05/24/23 documented in this encounter Plan of Treatment Upcoming Encounters Date Type Department Care Team (Late st Contact Info) Description 02/21/2024 9:45 EDT Office Visit [facility] Adult Primary Care - [address] [phone] Carrington Calderon MD [address] [place] [phone] 02/27/2024 8:30 EDT Telemedicine [facility] Sleep Program - [address] [id number] Rn, Sleep 02/29/2024 10:30 EDT Appointment [facility] Radiology Nuclear Medicine and PET [address] [phone] 02/29/2024 14:30 EDT Appointment [facility] Radiology Nuclear Medicine and PET [address] [id number] 03/01/2024 8:00 EDT Appointment [facility] Radiology Nuclear Medicine and [address] [id number] 03/01/2024 9:30 EDT Appointment [facility] Radiology Nuclear Medicine and PET [address] [id number] documented as of this encounter Visit Diagnoses Not on filedocumented in this encounter Care Teams Curator [employer] Relationship Specialty Start Date End Date Carrington Calderon MD 1 [facility] 1 [place] [phone] PCP - General Internal Medicine - Primary Care 12/09/20 Abigail Díaz Global Technical Writer 04/21/23 documented as of this encounter
--- OUTSIDE RECORDS SUMMARY | 2023-12-16 00:32 | XMS_ITS | Encounter Summary ---
Author Organization [facility] Address [address] [place] [address] Care Team Providers Care Tobacco Conditioner Name Role Phone Carrington Calderon MD Primary Care Provi anders Abigail Díaz Unavailable Reason for Visit * Reason Onset Date Comments Master Data Analyst Message 05/26/2023 Encounter Details Date Type Department Care Team (Late st Contact Info) Description 05/26/2023 Telephone [facility] Adult Primary Care - [address] [address] Samantha Hough MD [address] [place] [phone] Master Data Analyst Message Social History Tobacco Use Types Packs/Day Years [...] slept in a alf (including now)? No 11/17/2022 Interpersonal Safety Answer [...] encounter Miscellaneous Notes * Telephone Encounter - Samantha Hough MD - 05/26/20232051 EST Master Data Analyst Provider Documentation Returned to page to mother in law of patient. She states she was not the one who called initially, but probably her son called from work and asked for her to be called. Patient is having uncontrolled vomiting and also defecating on herself repeatedly today. They are wondering if she should got to the hospital. Advised hospital visit given severity of symptoms. Samantha Hough MD * Telephone Encounter - Samantha Hough MD - 05/26/20232022 EST Master Data Analyst Provider Documentation 8:20 pm page to plasma cutting machine operator who states mother in law of patient calling due to concern of patient being sick and vomiting Resistance Welder called back x 2, direct to voicemail with no voicemail set up. Await additional calls. Samantha Hough MD documented in this encounter Plan of Treatment Upcoming Encounters Date Type Department Care Team (Late st Contact Info) Description 02/21/2024 9:45 EDT Office Visit [facility] Adult Primary Care - [place] 1 [place], [place] [address] Carrington Calderon MD 1 [facility] Level 1 [place] [phone] 02/27/2024 8:30 EDT Telemedicine [facility] Sleep Program - [facility] 1 [place], [place] [phone] Rn, Sleep 02/29/2024 10:30 EDT Appointment [facility] Radiology Nuclear Medicine and PET - [address] [address] 02/29/2024 14:30 EDT Appointment [facility] Radiology Nuclear Medicine and PET - [address] [address] 03/01/2024 8:00 EDT Appointment [facility] Radiology Nuclear Medicine and PET - [address] [address] 03/01/2024 9:30 EDT Appointment [facility] Radiology Nuclear Medicine and PET [address] [address] documented as of this encounter Visit Diagnoses Not on filedocumented in this encounter Care Teams Tobacco Conditioner Relationship Specialty Start Date End Date Carrington Calderon MD 1 [facility] 1 [place] [phone] PCP - General Internal Medicine - Primary Care 12/09/20 Abigail Díaz De Icer Installer 04/21/23 documented as of this encounter
--- OUTSIDE RECORDS SUMMARY | 2023-12-16 00:32 | XMS_ITS | Encounter Summary ---
Author Organization [facility] Address [address] [place] [address] Care Team Providers Care Dozer Operator Name Role Phone Carrington Calderon MD Primary Care Provi anders Abigail Díaz Unavailable [phone] Reason for Visit * Reason Comments Follow-up Gastroparesis / 6 Mo [facility] Follow-Up * Consult (Routine) - Receiving Office to Obtain Authorization Specialty Diagnoses / Procedures Referred By Kit goode Referred To Contact Diagnoses Gastroparesis Dale Collier MD [address] [place] [address] [place] [address] [facility] [facility] [address] [place] [id number] Referral ID Status Reason Start Date Expiration Date Visits Requested Visits Authorized [id number] Receiving Office to Obtain Authorization Specialty Services Required 1 1 Encounter Details Date Type Department Care Team (Late st Contact Info) Description 11/16/2023 11:00 EDT Telemedicine [facility] Gastroenterology - [address] [address] Scott Arzate MD 111 [facility], Level [address] [place] [phone] Cyclic vomiting syndrome (Primary Dx) Social History Tobacco Use Types Packs/Day Years Used Date Smoking Tobacco: Every Day Cigarettes 0.5 13.1 Started: 11/10/2010 Smokeless Tobacco: Never Tobacco Cessation:Ready to Q uit: Not Asked; Counseling Given: Not Answered Comments:06/13/20 actively trying to quit about 5-8 cigs/day Alcohol Use Standard Drinks/Week Comments Yes 0 (1 standard drink = 0.6 oz pur e alcohol) rarely [facility] Utilities Answer Date Recorded In the past 12 months has th e [employer], oil, or water [employer] threatened to shut off services in your [...] place to sleep or slept in a custodial (including now)? No 06/14/2023 Housing Stability Vital Sign Answer Norm e Recorded In the last 12 months, was t here a time when you were not able to pay the mortgage or rent on time? No 11/15/2023 In the past 12 months, how m any times have you moved where you were living? 1 11/15/2023 At any time in the past 12 m [facility], were you homeless or living in a custodial (including now)? No 11/15/2023 Interpersonal Safety Answer [...] as of this encounter Progress Notes * Kasi Bishop MA - 11/16/2023 1100 EDT The concept of ???Telemedicine?? has been described to the patient.? Patient has been informed of the anticipated benefits and possible risks.? Patient understands the information provided regardingtelemedicine, has had the opportunity to ask questions about this information, and all questions have been answered to patient???s satisfaction. Patient consents for the use of telemedicine in his/her medical care and authorizes the transmission of any relevant medical information to providers and their staff involved in patient???s medical or mental health care. Patient understands that they maybe responsible for copays, deductible or coinsurance for this service.TELEMEDICINE VIDEO VISIT Today's visit was provided through telemedicine video conferencing: I have reviewed the appropriateness of using video technology with the patient with regards to today's visit. The location of the patient : Home (where patient lives) Patient location state: Visit Location State: [place] The location of the provider: Office Provider location state: Visit Location State: [place] The following people and their roles were present for today's visit: Appointment Provider: Scott Arzate MD BRANDON LAWSON, MA * Myles Reyes DO - 11/16/2023 1100 EDT Gastroenterology & Hepatology Follow Up Visit Reason [...] [facility], in a background of diabetic gastroparesis. She presents for 6 month follow-up. Patient had a mirena IUD placed since last visit with hope that this may help with her symptoms since her symptoms are associated with menstrual cycles. She has noted that she has not recurrent episodes cyclic vomiting episodes since placement IUD. She still uses zofran on occasion. She rarely has to use the compazine suppositories. She continues use cannabis products; she previously tried stopping cannabis products for a while and did not notice any benefit. She recently had a PCP appointment and had some adjustments made to her diabetes management; her A1C has been decreasing over time. She sees a therapist weekly. Her migraines have been reasonably controlled; she has a pending referral to the headache clinic. PMH: As stated in HPI. ROS: A 10-point ROS was performed and is negative other than stated in HPI. Current Outpatient Medications: acetaminophen (TYLENOL) 325 mg tablet, Take 2 Tabs by mouth every 4 hours as needed for Pain., Disp: , Rfl: Blood-Glucose Sensor (DEXCOM G6 SENSOR) device, Inject 1 Each into the skin every 10 days., Disp: 9Each, Rfl: 4 Blood-Glucose Transmitter (DEXCOM G6 TRANSMITTER) device, Inject 1 Each into the skin every 3 months., Disp: 1 Each, Rfl: 4 DULoxetine 40 mg capsule,delayed release(DR/EC), Take 40 mg by mouth daily., Disp: 30 Capsule, Rfl:11 empagliflozin (JARDIANCE) 25 mg tablet, Take 1 Tablet by mouth daily., Disp: 90 Tablet, Rfl: 4 gabapentin (NEURONTIN) 300 mg capsule, Take 1 Capsule by mouth every morning AND 4 Capsules at bedtime., Disp: 450 Capsule, Rfl: 4 HUMALOG KWIKPEN INSULIN 100 unit/mL injectable pen, 8 units with breakfast, 15 units with lunch/dinner, Disp: 30 mL, Rfl: 11 insulin glargine (LANTUS SOLOSTAR/SEMGLEE) 100 unit/mL (3 mL) injection pen, Inject 44 Units into the skin at bedtime., Disp: 36 mL, Rfl: 4 lidocaine 5 % (LIDODERM) 5 % patch, Place 1 Patch onto the skin daily. Patch(es) may remain in place for up to 12 hours in any 24-hour period., Disp: 30 Patch, Rfl: 2 LORazepam (ATIVAN) 0.5 mg tablet, Take 1 Tablet by mouth daily as needed for Anxiety. Daily Max: 0.5 mg, Disp: 30 Tablet, Rfl: 3 metoclopramide HCl (REGLAN) 10 mg tablet, Take 1 Tablet by mouth 3 times daily before meals. Starting 3 days before menses and stopping after end of period, Disp: 270 Tablet, Rfl: 3 omeprazole (PRILOSEC) 20 mg capsule, Take 1 Capsule by mouth daily., Disp: 90 Capsule, Rfl: 3 ondansetron (ZOFRAN-ODT) 4 mg disintegrating tablet, Take 1 Tablet by mouth every 8 hours as neededfor Nausea., Disp: 30 Tablet, Rfl: 11 prochlorperazine (COMPAZINE) 10 mg tablet, Take 1 Tablet by mouth every 8 hours as needed for Nausea., Disp: 8 Tablet, Rfl: 11 prochlorperazine (COMPAZINE) 25 mg suppository, Place 1 Suppository rectally every 12 hours as needed for Nausea., Disp: 6 Suppository, Rfl: 11 SITagliptin phosphate (JANUVIA) 100 mg tablet, Take 1 Tablet by mouth daily., Disp: 90 Tablet, Rfl:4 SUMAtriptan (IMITREX) 20 mg/actuation nasal spray, USE 1 SPRAY(S) INTO RIGHT NOSTRIL NEEDED FOR MIGRAINE HEADACHE, Disp: 6 Each, Rfl: 1 traMADol (ULTRAM) 50 mg tablet, Take 1 Tablet by mouth every 6 hours as needed for Pain. Daily Max:200 mg, Disp: 30 Tablet, Rfl: 5 traZODone (DESYREL) 50 mg tablet, Take 1 Tablet by mouth at bedtime., Disp: 30 Tablet, Rfl: 4 ZOLMitriptan (ZOMIG) 2.5 mg tablet, Take 1 Tablet by mouth 2 times daily. BID starting 2 days priorto onset of menses, continuing for a total of 5 days (10 doses), Disp: 10 Tablet, Rfl: 11 Current Facility-Administered Medications: levonorgestreL (MIRENA) 21 mcg/24 hours (8 yrs) 52 mg IUD 1 Each, 1 Each, intrauterine, CONTINUOUS IUD/LARC, Kamini Vega MD, 1 Each at 08/05/23 1318 Allergies Allergen Reactions Citalopram Other (See Comments) suicidal ideation, approx 2012 Other - See Comments Swelling of throat pomergrante Advil [Ibuprofen] Hives Social History: Daily use of marijuana, mostly at bedtime Family History: No family history of IBD Physical Exam: Well appearing over video feed EKG 12/20/22: QTc 423 Impression: Cristy Luo is a 36 year old woman with uncontrolled diabetes, anxiety/depression. She is seen in follow up for episodic vomiting that is most consistent with cyclic vomiting syndrome. She has had some improvement in symptoms with multi-modal interventions. It seems that recent IUD has been helpful as she hasn't had a severe episode since then. We discussed that she should continue current management. Plan: - continue current therapy as prescribed by her PCP - agree with on-going psychotherapy - agree with evaluation at headache clinic - Stressed the importance of ongoing good control of diabetes which she is making progress on. - Follow up with PCP, can follow-up with our clinic as needed Myles Reyes DO PGY6 Gastroenterology & Hepatology Fellow * Scott Arzate MD - 11/16/2023 1100 EDT Attestation statement: I performed or was present during the pendleton or critical portions of the visit and participated in the management of the patient. I agree with the findings and plan of care documented in the resident's/fellow's note. documented in this encounter Plan of Treatment Upcoming Encounters Date Type Department Care Team (Late st Contact Info) Description 02/21/2024 9:45 EDT Office Visit [facility] Adult Primary Care - [address] [phone] Carrington Calderon MD [address] [place] [phone] 02/27/2024 8:30 EDT Telemedicine [facility] Sleep Program - [address] [phone] Rn, Sleep 02/29/2024 10:30 EDT Appointment [facility] Radiology Nuclear Medicine and PET - [address] [phone] 02/29/2024 14:30 EDT Appointment [facility] Radiology Nuclear Medicine and PET - [address] [phone] 03/01/2024 8:00 EDT Appointment [facility] Radiology Nuclear Medicine and PET - [address] [phone] 03/01/2024 9:30 EDT Appointment [facility] Radiology Nuclear Medicine and PET - [address] [phone] documented as of this encounter Visit Diagnoses Diagnosis Cyclic vomiting syndrome- Primary Persistent vomiting documented in this encounter Care Teams Dozer Operator Relationship Specialty Start Date End Date Carrington Calderon MD 1 [facility] 1 [place] [phone] PCP - General Internal Medicine - Primary Care 12/09/20 Abigail Díaz Net Web Developer 04/21/23 documented as of this encounter
--- OUTSIDE RECORDS SUMMARY | 2023-12-16 00:32 | XMS_ITS | Encounter Summary ---
Author Organization [facility] Address [address] [place] [address] Care Team Providers Care Mining Manager Name Role Phone Carrington Calderon MD Primary Care Provi anders Abigail Díaz Unavailable [phone] Reason for Visit * Reason Comments Consult * Consult (Routine/Next Available) - Specialty Report Received Specialty Diagnoses / Procedures Referred By Kit goode Referred To Contact Obstetrics & Gynecology Diagnoses IUD contraception Carrington Calderon MD 1 [facility] [address] [place] [address] [facility] Obgyn [address] [place] [address] Referral ID Status Reason Start Date Expiration Date Visits Requested Visits Authorized [id number] Specialty Report Received Specialty Services Required 3 1 1 Encounter Details Date Type Department Care Team (Late st Contact Info) Description 08/05/2023 13:00 EST Initial consult [facility] Women's Services - [address] [address] Kamini Vega MD 111 [facility] [address] [place] [address] Encounter for IUD insertion (Primary Dx); Gastroparesis Social History Tobacco Use Types Packs/Day Years [...] in a residential (including now)? No 06/14/2023 Interpersonal Safety Answer [...] as of this encounter Progress Notes * Kamini Vega MD - 08/05/2023 1300 EST Pap normal Jun 2023 Declines STD screen. Discussed IUD benefits and risks. Past Medical History: Diagnosis Date Abnormal gag reflex pt notes she has a very strong gag reflex Anxiety comes on fast typical c/p CP straight through my back it just happens when it happens - takes Ativan prn Arthritis 12/05/19- Spine- told years ago Back pain chronic low back pain Chest pain r/t anxiety Depression pt has a referral for therapy. Diabetes ([facility]) A1c 10.3 on 11/28/2019 - poorly controlled Diabetes mellitus, type 2 ([facility]) pt check blood sugars at home- X 7 average BG 95-200- ( was throwing up at the time) Last A1C: Does not exercise 06/13/2020 due to infected toe- typically on a normal basis- walk 3 dogs and hiking- climbing stairs is not anissue. 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 Productive cough pt currently quitting smoking- clear secretions. Spontaneous miscarriage 09/04/201502/18, 08/19. Followed by Dr. L[facility] Past Surgical History: Procedure Laterality Date BREAST CYST EXCISION Right lumpectomy- GA tolerated well. DILATION AND CURETTAGE OF UTERUS DILATION AND CURETTAGE OF UTERUS DILATION AND CURETTAGE OF UTERUS DILATION AND CURETTAGE OF UTERUS DILATION AND CURETTAGE OF UTERUS DILATION AND CURETTAGE OF UTERUS DILATION AND CURETTAGE OF UTERUS OTHER SURGICAL HISTORY tailbone (mostlikely pilonidal cyst) PILONIDAL CYST EXCISION unknown was a teenager I think I did fine TOE AMPUTATION Left 06/2020 Great toe- GA tolerated well. Current Outpatient Medications on File Prior to Visit Medication Sig Dispense Refill acetaminophen (TYLENOL) 325 mg tablet Take 2 Tabs by mouth every 4 hours as needed for Pain. Blood-Glucose Sensor (DEXCOM G6 SENSOR) device Inject 1 Each into the skin every 10 days. 9 Each 4 Blood-Glucose Transmitter (DEXCOM G6 TRANSMITTER) device Inject 1 Each into the skin every 3 months. 1 Each 4 DULoxetine 40 mg capsule,delayed release(DR/EC) Take 40 mg by mouth daily. 30 Capsule 11 empagliflozin (JARDIANCE) 25 mg tablet Take 1 Tablet by mouth daily. 90 Tablet 4 gabapentin (NEURONTIN) 300 mg capsule Take 1 Capsule by mouth every morning AND 4 Capsules at bedtime. 450 Capsule 4 HUMALOG KWIKPEN INSULIN 100 unit/mL injectable pen 8 units with breakfast, 12 units with lunch/dinner 30 mL 11 insulin glargine (LANTUS SOLOSTAR/SEMGLEE) 100 unit/mL (3 mL) injection pen Inject 44 Units into the skin at bedtime. 36 mL 4 lidocaine 5 % (LIDODERM) 5 % patch Place 1 Patch onto the skin daily. Patch(es) may remain in placefor up to 12 hours in any 24-hour period. 30 Patch 2 LORazepam (ATIVAN) 0.5 mg tablet Take 1 Tablet by mouth daily as needed for Anxiety. Daily Max: 0.5mg 30 Tablet 3 metoclopramide HCl (REGLAN) 10 mg tablet Take 1 Tablet by mouth 3 times daily before meals. Starting 3 days before menses and stopping after end of period 270 Tablet 3 omeprazole (PRILOSEC) 20 mg capsule Take 1 Capsule by mouth daily. 90 Capsule 3 ondansetron (ZOFRAN-ODT) 4 mg disintegrating tablet Take 1 Tablet by mouth every 8 hours as needed for Nausea. 30 Tablet 11 prochlorperazine (COMPAZINE) 10 mg tablet Take 1 Tablet by mouth every 8 hours as needed for Nausea. 8 Tablet 11 prochlorperazine (COMPAZINE) [address] 1 Suppository rectally every 12 hours as needed for Nausea. 6 Suppository 11 SITagliptin phosphate (JANUVIA) 100 mg tablet Take 1 Tablet by mouth daily. 90 Tablet 4 SUMAtriptan (IMITREX) 20 mg/actuation nasal spray USE 1 SPRAY(S) INTO RIGHT NOSTRIL NEEDED FOR MIGRAINE HEADACHE 6 Each 1 traMADol (ULTRAM) 50 mg tablet Take 1 Tablet by mouth every 6 hours as needed for Pain. Daily Max: 200 mg 30 Tablet 5 ZOLMitriptan (ZOMIG) 2.5 mg tablet Take 1 Tablet by mouth 2 times daily. BID starting 2 days prior to onset of menses, continuing for a total of 5 days (10 doses) 10 Tablet 11 No current facility-administered medications on file prior to visit. Allergies Allergen Reactions Citalopram Other (See Comments) suicidal ideation, approx 2012 Other - See Comments Swelling of throat pomergrante Advil [Ibuprofen] Hives Last menstrual period 08/01/2023. A/P) Nausea and vomiting with menses, IUD to help control dysmenorrhea IUD insertion procedure note: Informed written consent obtained Bimanual exam performed to reveal anteverted uterus Speculum inserted, cervix cleansed with betadine x 3 Tenaculum placed on anterior lip of cervix Uterus sounded to 8 cm Mirena IUD package opened. Device prepared. Mirena IUD applicator inserted through os to fundus, withdrawn slightly and arms deployed as per pan washer specifications. Applicator removed Strings trimmed to 3 cm Tenaculum removed. No bleeding from tenaculum sites. Speculum removed. Patient tolerated procedure well. Kamini Vega MD 08/05/2023 13:02 documented in this encounter Plan of Treatment Upcoming Encounters Date Type Department Care Team (Late st Contact Info) Description 02/21/2024 9:45 EDT Office Visit [facility] Adult Primary Care - [address] [id number] Carrington Calderon MD [address] [place] [phone] 02/27/2024 8:30 EDT Telemedicine [facility] Sleep Program - [address] [phone] Rn, Sleep 02/29/2024 10:30 EDT Appointment [facility] Radiology Nuclear Medicine and PET [address] [id number] 02/29/2024 14:30 EDT Appointment [facility] Radiology Nuclear Medicine and PET [address] [id number] 03/01/2024 8:00 EDT Appointment [facility] Radiology Nuclear Medicine and PET [address] [id number] 03/01/2024 9:30 EDT Appointment [facility] Radiology Nuclear Medicine and PET [address] [id number] documented as of this encounter Visit Diagnoses Diagnosis Encounter for IUD insertion- Primary Encounter for insertion of intrauterine contraceptive device Gastroparesis documented in this encounter Administered Medications Active Administered Medications - up to 3 most recent administrations Medication Order MAR Action Action Date Dose Rate Site levonorgestreL (MIRENA) 21 mcg/24 hours (8 yrs) 52 mg IUD 1 Each 1 Each, intrauterine, CONTINUOUS IUD/LARC, Starting on Tue08/05/23 at 1345, Until Tue08/03/30 at 1344, Per [facility] P &T Committee, use is restricted to outpatient clinics and the OR. LARC approved for inpatient use includes Mirena, Nexplanon, and Paragard only for patients covered by [facility] Routine IUD Insertion 08/05/2023 13:18 EST 1 Each documented in this encounter Orders Medications Ordered That Stan ht Not Have Been Administered Count Last Ordered Date First Ordered Date levonorgestreL (MIRENA) 21 m cg/24 hours (8 yrs) 52 mg IUD 1 Each 1 08/05/2023 documented in this encounter Care Teams Mining Manager Relationship Specialty Start Date End Date Carrington Calderon MD 1 [facility] Level [address] [place] [address] PCP - General Internal Medicine - Primary Care 12/09/20 Abigail Díaz Glove Examiner 04/21/23 documented as of this encounter
--- OUTSIDE RECORDS SUMMARY | 2023-12-16 00:32 | XMS_ITS | Encounter Summary ---
Author Organization [facility] Address [address] [place] [address] Care Team Providers Care Information Operator Name Role Phone Carrington Calderon MD Primary Care Provi anders Abigail Díaz Unavailable [phone] Reason for Visit * Reason Comments Nicotine Dependence Encounter Details Date Type Department Care Team (Late st Contact Info) Description 05/24/2023 Community Health Team [facility] Adult Primary Care - [place] [address] [place], [place] [phone] Kylah Wilson Social History Tobacco Use Types [...] slept in a fci (including now)? No 11/17/2022 Interpersonal Safety Answer [...] encounter Progress Notes * Kylah Wilson - 05/24/2023 1040 EST Placed out going call to check in with pt regarding tobacco cessation support. Unable to reach pt by phone LVM will follow up in one week. Follow up call 06/01/23 documented in this encounter Plan of Treatment Upcoming Encounters Date Type Department Care Team (Late st Contact Info) Description 02/21/2024 9:45 EDT Office Visit [facility] Adult Primary Care - [address] [phone] Carrington Calderon MD [address] [place] [phone] 02/27/2024 8:30 EDT Telemedicine [facility] Sleep Program - [address] [phone] Rn, Sleep 02/29/2024 10:30 EDT Appointment [facility] Radiology Nuclear Medicine and [address] [id number] 02/29/2024 14:30 EDT Appointment [facility] Radiology Nuclear Medicine and PET [address] [id number] 03/01/2024 8:00 EDT Appointment [facility] Radiology Nuclear Medicine and [address] [phone] 03/01/2024 9:30 EDT Appointment [facility] Radiology Nuclear Medicine and PET [address] [phone] documented as of this encounter Visit Diagnoses Not on filedocumented in this encounter Care Teams Information Operator Relationship Specialty Start Date End Date Carrington Calderon MD 1 [facility] 1 [place] [address] PCP - General Internal Medicine - Primary Care 12/09/20 Abigail Díaz School Age Program Associate 04/21/23 documented as of this encounter
--- OUTSIDE RECORDS SUMMARY | 2023-12-16 00:32 | XMS_ITS | Encounter Summary ---
Author Organization [facility] Address [address] [place] [address] Care Team Providers Care Wage Adjuster Name Role Phone Carrington Calderon MD Primary Care Provi anders Abigail Díaz Unavailable Reason for Visit * Reason Onset Date Comments Results 07/25/2023 XRAY right ankle Encounter Details Date Type Department Care Team (Late st Contact Info) Description 07/25/2023 Telephone [facility] Adult Primary Care - [address] [address] Carrington Calderon MD 1 [facility] Level [address] [place] [phone] Results (XRAY right ankle) Social History Tobacco Use Types Packs/Day Years [...] place to sleep or slept in a mcc (including now)? No 06/14/2023 Interpersonal Safety Answer Date Record ed How often does anyone, inclu chivo family, hit, punch or physically hurt you? 06/14/2023 How often does anyone, inclnick chivo family, insult, scream, curse or threaten [...] encounter Miscellaneous Notes * Telephone Encounter - Carrington Calderon MD - 07/25/2023 1635 EST No fracture. There is a bone spur on the heel, which can contribute to heel pain, but can be asymptomatic. * Telephone Encounter - Nichole Márquez - 07/25/2023 1357 EST Patient would like to know results of xray taken today of her right ankle. Please advise documented in this encounter Plan of Treatment Upcoming Encounters Date Type Department Care Team (Late st Contact Info) Description 02/21/2024 9:45 EDT Office Visit [facility] Adult Primary Care - [address] [phone] Carrington Calderon MD [address] [phone] 02/27/2024 8:30 EDT Telemedicine [facility] Sleep Program - [address] [phone] Rn, Sleep 02/29/2024 10:30 EDT Appointment [facility] Radiology Nuclear Medicine and PET - [address] [phone] 02/29/2024 14:30 EDT Appointment [facility] Radiology Nuclear Medicine and PET - [address] [address] 03/01/2024 8:00 EDT Appointment [facility] Radiology Nuclear Medicine and PET [address] [address] 03/01/2024 9:30 EDT Appointment [facility] Radiology Nuclear Medicine and PET [address] [address] documented as of this encounter Visit Diagnoses Not on filedocumented in this encounter Care Teams Wage Adjuster Relationship Specialty Start Date End Date Carrington Calderon MD 1 [facility] Level [address] [place] [phone] PCP - General Internal Medicine - Primary Care 12/09/20 Abigail Díaz Blending Kettle Tender 04/21/23 documented as of this encounter
--- OUTSIDE RECORDS SUMMARY | 2023-12-16 00:32 | XMS_ITS | Encounter Summary ---
Author Organization [facility] Address [address] [place] [address] Care Team Providers Care Load Blocker Name Role Phone Carrington Calderon MD Primary Care Provi anders JunJameyAbigail Williamson Unavailable [phone] Reason for Referral * Consult (Routine/Next Available) - Authorization Not Required Specialty Diagnoses / Procedures Referred By Kit goode Referred To Contact Sleep Medicine Diagnoses Primary insomnia Carrington Calderon MD [address] [phone] [facility] [address] [place] [id number] Referral ID Status Reason Start Date Expiration Date Visits Requested Visits Authorized [id number] Authorization Not Required Specialty Services Required 11/11/2023 1 1 Question Answer Reason for referral Diffifulty initiating sleep Patient Type: Adult Comments Schedule via phone, no mychart * Referral (Routine/Next Available) - Specialty Report Received Specialty Diagnoses / Procedures Referred By Kit goode Referred To Contact Multidisciplinary Diagnoses Type 2 diabetes mellitus with diabetic polyneuropathy, with long-term current use of insulin ([facility]) Cyclic vomiting syndrome Carrington Calderon MD [address] [phone] [facility] Team [address] [facility], [address] [place] [address] Referral ID Status Reason Start Date Expiration Date Visits Requested Visits Authorized [id number] Specialty Report Received Specialty Services Required 11/11/2023 1 1 Question Answer Reason for Request: disability paperwork * Referral (Routine/Next Available) - Authorization Not Required Specialty Diagnoses / Procedures Referred By Contac t Referred To Contact Neurology Diagnoses Migraine with aura and without status migrainosus, not intractable Cyclic vomiting syndrome Carrington Calderon MD [address] [address] Kierra lAmeida DO 1 [facility] [address] [place] [address] Referral ID Status Reason Start Date Expiration Date Visits Requested Visits Authorized [id number] Authorization Not Required Specialty Services Required 11/11/2023 1 1 Question Answer Reason for Request: cyclic vomiting and migraine Context of referral: Established Problem Reason for referral: Unsure Is headache attributable to an underlying condition? No Is patient actively missing work or school due to headache? Yes Is patient or lactating? No Has patient had a previous OUTSIDE of [facility] neurology evaluation, neuroimaging (MRI or CT of brain or spine) or electrodiagnostic testing (EMG, NCS, EEG)? No Reason for Visit * Reason Comments Follow-up Foot Pain Encounter Details Date Type Department Care Team (Late st Contact Info) Description 11/11/2023 13:00 EDT Office Visit [facility] Adult Primary [facility] - [place] [address] [place], [place] [address] Carrington Calderon MD [address] [place] [phone] Type 2 diabetes mellitus with diabetic polyneuropathy, with long-term current use of insulin (HCC-CMS) ([facility]) (Primary Dx); Migraine with aura and without status migrainosus, not intractable; Anxiety and depression; Cyclic vomiting syndrome; Diabetic ulcer of left midfoot associated with type 2 diabetes mellitus, limited to breakdown of skin (HCC-CMS); Primary insomnia; Abnormal thyroid blood test; Encounter for screening for other viral diseases; Primary hypertension; Subclinical hyperthyroidism Social History Tobacco Use Types Packs/Day Years [...] in a fci (including now)? No 06/14/2023 Interpersonal Safety Answer [...] Sign Reading Time Taken Comments Blood Pressure 142/90 11/11/2023 1242 EDT Pulse 78 11/11/2023 1242 EDT Temperature 35.9 ??C (96.6 ??F) 11/11/2023 1242 EDT Respiratory Rate 22 11/11/2023 1242 EDT Oxygen Saturation - - Inhaled Oxygen Concentration - - Weight - - Height - - Body Mass Index - - documented in this encounter Functional Status Functional [...] Dispensed Refills Start Date End Da te traZODone (DESYREL) 50 mg tabletIndications:Primary insomnia Take 1 Tablet by mouth at bedtime. 30 Tablet 4 11/11/2023 HUMALOG KWIKPEN INSULIN 100 unit/mL injectable penIndications:Type 2 diabetes mellitus with diabetic polyneuropathy, with long-term current use of insulin ([facility]) 8 units with breakfast, 15 units with lunch/dinner 30 mL 11 11/11/2023 documented in this encounter Progress Notes * Carrington Calderon MD - 11/11/2023 1300 EDT Images from the original note were not included. Primary Care Office Visit Assessment & Plan 1. Type 2 diabetes mellitus with diabetic polyneuropathy, with long-term current use of insulin ([facility]) ([facility]) Reviewed CGM data in detail. GMI reflects good control, though likely with some room for improved numbers in the afternoon. I recommended increasing her lunchtime and dinnertime short acting insulin from 12 units up to 15 units, continue present dose of Lantus, continue the same morning dose of short acting insulin. We discussed eating patterns. I recommended she consider reducing sources of added sugar, but that some foods traditionally labeled as carbohydrate may actually be good for her health (whole grains, legumes etc), and that vegetables are healthy. - HUMALOG KWIKPEN INSULIN 100 unit/mL injectable pen; 8 units with breakfast, 15 units with lunch/dinner Dispense: 30 mL; Refill: 11 - AMB CONS/FOLLOW UP OUTPATIENT CARE MANAGEMENT - [facility]; Future - HEMOGLOBIN A1C; Future - COMPREHENSIVE METABOLIC PANEL (CMP); Future - COMPLETE BLOOD COUNT AND DIFFERENTIAL; Future - LIPID PROFILE (INCLUDES CHOLESTEROL, TRIGLYCERIDES, HDL, LDL); Future - URINE [id number] RATIO (ACR); Future 2. Migraine with aura and without status migrainosus, not intractable Today, I recommended referral to neurology. Unfortunately, abortive therapies that we discussed have not been effective. She may be a candidate for CGRP inhibitor. - AMB CONS/FOLLOW UP HEADACHE; Future 3. Anxiety and depression Duloxetine not changed today. 4. Cyclic vomiting syndrome Headache clinic as advised above. Otherwise, she can continue to try abortive migraine therapies when she experiences this. It is fairly clear that this is catamenial in nature. Stella has not been ableto work for the last couple of years. She is unable to do anything that requires her to be on her feet on a regular basis, and the cyclic vomiting interferes with her ability to work and other capacities. She is interested in applying for temporary disability. I have placed a referral to our socialworker for help with this. - AMB CONS/FOLLOW UP HEADACHE; Future - AMB CONS/FOLLOW UP OUTPATIENT CARE MANAGEMENT - [facility]; Future 5. Diabetic ulcer of left midfoot associated with type 2 diabetes mellitus, limited to breakdown ofskin ([facility]) Continue care with her grain mill products inspector. We did not examine the foot today, as she is getting frequent exams, and we did look at a (albeit low quality) photo from a scanned podiatry note today. 6. Primary insomnia Today I suggested we try trazodone. She is amenable to giving this a try. We also discussed a tricyclic antidepressant, which may help somewhat with sleep, neuropathy and migraine. However, she wouldreally like to prioritize the sleep. We therefore tried the trazodone. Of note, we also discussed the potential interaction between tricyclic antidepressant and tramadol. If we were to pursue this inthe future I think it would be reasonably safe. She only takes the tramadol rarely, 50 mg at a time. - traZODone (DESYREL) 50 mg tablet; Take 1 Tablet by mouth at bedtime. Dispense: 30 Tablet; Refill:4 - BEHAVIORAL SLEEP MEDICINE CONSULTATION; Future 7. Abnormal thyroid blood test Check thyroid cascade - THYROID CASCADE; Future 8. Encounter for screening for other viral diseases Should get hepatitis B vaccine unless she is immune. Hepatitis B profile ordered. - HEPATITIS B PROFILE; Future - HEPATITIS C AB W REFLEX TO HCV RNA BY PCR; Future - HIV 1/2 ANTIGEN AND ANTIBODY, 4TH GENERATION; Future 9. Primary hypertension Blood pressure elevated today. Consider pharmacotherapy for this in future. Other issues prioritized today. Return in about 3 months (around 02/11/2024). Patient education was direct. Barriers were assessed and addressed as needed. I spent a total of 50 minutes on the date of this encounter meeting with the patient and reviewing documentation/coordinating care as described in the above note. Unless otherwise noted, no procedures were performed at the time of the visit. Alejandrina Douglas is a 38 y.o. female presenting with Follow-up and Foot Pain HPI Last visit with me was in June. For cyclic vomiting syndrome I suggested she try intranasal sumatriptan. We discussed the use of tricyclic antidepressant, but preferred to avoid it given risk of lowering seizure threshold when used with tramadol. Januvia was resumed, Lantus was increased from 48up to 44 units daily, and mealtime insulin was reduced for the breakfast dose. For insomnia, I recommended reduction of screen time, and referred for CBT-I. Pregabalin was increased for neuropathy symptoms from 900 mg up to 1200 mg at night, continued 300 mg in the morning. She was seen by Dr. Clayton in the hematology clinic in August for neutrophilia, thought to be from underlying inflammation from various disorders, including smoking, poorly controlled diabetes and diabetic foot ulcer. Today, Stella reports that she has continued to see her grain mill products inspector in [place] every couple of weeks. She has a persistent foot ulcer on the bottom of her left foot at around the level of the first metatarsal head. She expresses frustration around the fact that this has not healed. She has beentold by her grain mill products inspector that it would be hard or impossible for her to work, or that she would have to work remotely. She continues to have intermittent episodes of vomiting. These are still connected Jona poorly with her menses, but are happening less frequently since the IUD was placed. She tried intranasal sumatriptan without any effect. She also continues to have migraine, which is often connected with her episodes of cyclic vomiting, but sometimes happens independently as well. Headaches associate with migraine are in the anterior part of her head, without aura. She does have some photophobia and blurriness of vision. She has been doing well with her glucose management. Dexcom data as below. She has been taking 8 units of short acting insulin with breakfast, 12 units with dinner and lunch. We reviewed her eating patterns. Upon review, there appear to be some significant sources of added sugar, including granola,yogurt, sugar added to coffee, Gatorade in the last 24 hours. She still has trouble sleeping, with difficulty initiating and maintaining sleep. She has significantly reduced her screen time in the evening hours, eliminated it within a few hours of bedtime. Nighttime neuropathic pain symptoms in the feet persist, not noticeably improved with the increase in gabapentin dose. Data reviewed this visit: problem list/past medical history, current medications, and allergies ROS - See HPI Objective BP (!) 142/90 Pulse 78 Temp 35.9 ??C (96.6 ??F) (Tympanic) Resp 22 Physical Exam Constitutional: Appearance: She is well-developed and well-nourished. Psychiatric: Mood and Affect: Mood and affect normal. Behavior: Behavior normal. documented in this encounter Miscellaneous Notes * Addendum Note - Carrington Calderon MD - 11/11/2023 1300 EDTAddended by: CARRINGTON CALDERON on: 11/11/2023 16:12 Modules accepted: Orders documented in this encounter Plan of Treatment Upcoming Encounters Date Type Department Care Team (Late st Contact Info) Description 02/21/2024 9:45 EDT Office Visit [facility] Adult Primary Care - [address] [phone] Carrington Calderon MD [address] [phone] 02/27/2024 8:30 EDT Telemedicine [facility] Sleep Program - [address] [phone] Rn, Sleep 02/29/2024 10:30 EDT Appointment [facility] Radiology Nuclear Medicine and PET [address] [phone] 02/29/2024 14:30 EDT Appointment [facility] Radiology Nuclear Medicine and PET [address] [phone] 03/01/2024 8:00 EDT Appointment [facility] Radiology Nuclear Medicine and PET [address] [phone] 03/01/2024 9:30 EDT Appointment [facility] Radiology Nuclear Medicine and PET [address] [address] Scheduled Orders Name Type Priority Associated Diagnoses Orde r Schedule HEMOGLOBIN A1C Lab Routine Type 2 diabetes mellitus with diabetic polyneuropathy, with long-term current use of insulin ([facility]) ([facility]) Expected: 02/09/2024 (Approximate), Expires: 05/09/2024 COMPREHENSIVE METABOLIC PANEL (CMP) Lab Routine Type 2 diabetes mellitus with diabetic polyneuropathy, with long-term current use of insulin ([facility]) ([facility]) Expected: 02/09/2024 (Approximate), Expires: 05/09/2024 COMPLETE BLOOD COUNT AND DIFFERENTIAL Lab Routine Type 2 diabetes mellitus with diabetic polyneuropathy, with long-term current use of insulin ([facility]) ([facility]) Expected: 02/09/2024 (Approximate), Expires: 05/09/2024 LIPID PROFILE (INCLUDES CHOLESTEROL, TRIGLYCERIDES, HDL, LDL) Lab Routine Type 2 diabetes mellitus with diabetic polyneuropathy, with long-term current use of insulin ([facility]) ([facility]) Expected: 02/09/2024 (Approximate), Expires: 05/09/2024 URINE [id number] RATIO (ACR) Lab Routine Type 2 diabetes mellitus with diabetic polyneuropathy, with long-term current use of insulin ([facility]) ([facility]) Expected: 02/09/2024 (Approximate), Expires: 05/09/2024 THYROID-STIMULATING IMMUNOGLOBULIN (TSI), SERUM Lab Routine Subclinical hyperthyroidism Expected: 11/11/2023 (Approximate), Expires: 11/10/2024 Scheduled Referrals Name Type Priority Associated Diagnoses Order Schedule AMB CONS/FOLLOW UP HEADACHE Outpatient Referral Routine/Next Available Migraine with aura and without status migrainosus, not intractable Cyclic vomiting syndrome Expected: 12/11/2023 (Approximate), Expires: 11/10/2024 AMB [facility] Referral Routine/Next Available Type 2 diabetes mellitus with diabetic polyneuropathy, with long-term current use of insulin ([facility]) ([facility]) Cyclic vomiting syndrome Expected: 11/18/2023 (Approximate), Expires: 11/10/2024 BEHAVIORAL SLEEP MEDICINE CONSULTATION Outpatient Referral Routine/Next Available Primary insomnia Expected: 12/11/2023 (Approximate), Expires: 11/10/2024 documented as of this encounter Results * HIV 1/2 ANTIGEN AND ANTIBODY, 4TH GENERATION (11/11/2023 13:53 EDT) Pathologist [facility] HIV 1 and 2 Antibody/p24 Antigen, 4th Generation Negative Negative 11/11/2023 17:04 EDT [facility] Comment:If acute HIV-1 infec tion is suspected in a high risk patient, submit plasma specimen for HIV-1 RNA quantitation test. Blood VENOUS BLOOD / Unknown Venipuncture / Unknown 11/11/2023 13:53 EDT 11/11/2023 13:55 EDT Narrative [facility] - 11/11/2023 17:04 EDT Fourth Generation assay performed on the [employer] XPT. Carrington Calderon MD IMMUNOLOGY AND SEROLOGY ORDERABLES Performing Organization Address City/[facility]/ZIP Co de Phone Number [facility] [address] [place] [address] * HEPATITIS C AB W REFLEX TO HCV RNA BY PCR (11/11/2023 13:53 EDT) Pathologist [facility] Hep C Antibody Negative Negative 11/11/2023 17:03 EDT [facility] Blood VENOUS BLOOD / Unknown Venipuncture / Unknown 11/11/2023 13:53 EDT 11/11/2023 13:55 EDT Carrington Calderon MD CHEMISTRY & BLOOD GAS ORDERABLES Performing Organization Address City/[facility]/ZIP Co de Phone Number [facility] [address] [place] [address] * HEPATITIS B PROFILE (11/11/2023 13:53 EDT) Pathologist [facility] Hep B Surface Ag Negative Negative 11/11/19 17:04 EDT [facility] Hep B Surface Ab, Quantitative <3.1 See Note mIU/mL 11/11/2023 17:04 EDT [facility] Comment: Reference Range for Hep B Surface Ab, Quant: Positive: >= 10.0 mIU/mL Negative: ??< 10.0 mIU/mL Patient is presumed to not be immune to infection with Hepatitis B Virus. Hep B Surface Ab, Qualitative Negative See Note 11/11/2023 17:04 EDT [facility] Comment: Reference Range for Hep B Surface Ab, Qual: Unvaccinated: ??Negative Vaccinated: ??Positive Hepatitis B Core Ab, Total Negative Negative 11/11/2023 17:04 EDT [facility] Blood VENOUS BLOOD / Unknown Venipuncture / Unknown 11/11/2023 13:53 EDT 11/11/2023 13:55 EDT Carrington Calderon MD CHEMISTRY & BLOOD GAS ORDERABLES Performing Organization Address [facility] Co de Phone Number [facility] [address] [place] [address] * (ABNORMAL) THYROID CASCADE (11/11/2023 13:53 EDT) TSH 0.37(L) 0.47 - 4.68 mIU/L 11/11/2023 15:38 EDT [facility] Blood VENOUS BLOOD / Unknown Venipuncture / Unknown 11/11/2023 13:53 EDT 11/11/2023 13:55 EDT Narrative [facility] - 11/11/2023 15:38 EDT NOTE: The results of this assay can be falsely lowered due to the consumption of Biotin. Carrington Calderon MD CHEMISTRY & BLOOD GAS ORDERABLES Performing Organization Address City/[facility] Co de Phone Number [facility] [address] [place] [address] documented in this encounter Visit Diagnoses Diagnosis Type 2 diabetes mellitus with diabetic polyneuropathy, with long-term current use of insulin ([facility]) ([facility])- Primary Migraine with aura and without status migrainosus, not intractable Migraine with aura, without mention of intractable migraine without mention of status migrainosus Anxiety and depression Dysthymic disorder Cyclic vomiting syndrome Persistent vomiting Diabetic ulcer of left midfoot associated with type 2 diabetes mellitus, limited to breakdown of skin ([facility]) Primary insomnia Persistent disorder of initiating or maintaining sleep Abnormal thyroid blood test Nonspecific abnormal results of thyroid function study Encounter for screening for other viral diseases Primary hypertension Unspecified essential hypertension Subclinical hyperthyroidism Thyrotoxicosis without mention of goiter or other cause, without mention of thyrotoxic crisis or storm documented in this encounter Discontinued Medications Medication Sig Discontinue Reason Start Date End Da te HUMALOG KWIKPEN INSULIN 100 unit/mL injectable penIndications:Type 2 diabetes mellitus with diabetic polyneuropathy, with long-term current use of insulin ([facility]) 8 units with breakfast, 12 units with lunch/dinner 06/27/2023 11/11/2023 documented as of this encounter Care Teams Load Blocker Relationship Specialty Start Date End Date Carrington Calderon MD 1 [facility] Level [address] [place] [phone] PCP - General Internal Medicine - Primary Care 12/09/20 Abigail Díaz Shank Burnisher 04/21/23 documented as of this encounter
--- OUTSIDE RECORDS SUMMARY | 2023-12-16 00:32 | XMS_ITS | Encounter Summary ---
Author Organization [facility] Address [address] [place] [address] Care Team Providers Care Manager Decision Support Name Role Phone Carrington Calderon MD Primary Care Provi anders Abigail Díaz Unavailable [phone] Carmelo Hendrickson Unavailable Unavailable Reason for Visit * Reason Comments Med Change Request Encounter Details Date Type Department Care Team (Late st Contact Info) Description 06/29/2023 [facility] Adult Primary Care - [address] [address] Carrington Calderon MD [address] [phone] Med Change Request Social History [...] place to sleep or slept in a long term (including now)? No 06/14/2023 Interpersonal Safety Answer [...] te SUMAtriptan (IMITREX) 20 mg/actuation nasal spray USE 1 SPRAY(S) INTO RIGHT NOSTRIL NEEDED FOR MIGRAINE HEADACHE 6 Each 1 06/29/2023 documented in this encounter Miscellaneous Notes * Telephone Encounter - Joss Washington RN - 06/29/2023 1619 EST Requested Prescriptions Pending Prescriptions Disp Refills SUMAtriptan (IMITREX) 20 mg/actuation nasal spray [Pharmacy Med Name: SUMATRIPTAN 20MG/ACT RICARDO] 6 Each 1 Sig: USE 1 SPRAY(S) INTO RIGHT NOSTRIL NEEDED FOR MIGRAINE HEADACHE [facility] [address] [place] [address] Confirmed Pharmacy? Yes Patient out of medication? Unknown How many pills does patient have left? unknown Last Refill Date: 06/27/23 Refills left? (explain exceptions requiring early refill) No Recent Visits Date Type Provider Dept 06/27/23 Office Visit Carrington Calderon MD [facility] Adult [facility] 11/17/22 Office Visit Carrington Calderon MD [facility] Adult Prim [facility] 09/02/22 Office Visit Nimisha Clifton NP [facility] Adult Prim [facility] 05/20/22 Office Visit Rachel Stein PA-C [facility] Adult Prim Care Showing recent visits within past 540 days with a meds authorizing provider and meeting all other requirements Future Appointments Date Type Provider Dept 08/15/23 Appointment Carrington Calderon MD [facility] Adult Prim Care Showing future appointments within next 150 days with a meds authorizing provider and meeting all other requirements Future appointment: Already Scheduled JOSS WASHINGTON RN 06/29/2023 16:19 documented in this encounter Plan of Treatment Upcoming Encounters Date Type Department Care Team (Late st Contact Info) Description 02/21/2024 9:45 EDT Office Visit [facility] Adult Primary Care - [address] [phone] Carirngton Calderon MD [address] [place] [phone] 02/27/2024 8:30 EDT Telemedicine [facility] Sleep Program - [address] [phone] Rn, Sleep 02/29/2024 10:30 EDT Appointment [facility] Radiology Nuclear Medicine and PET [address] [phone] 02/29/2024 14:30 EDT Appointment [facility] Radiology Nuclear Medicine and PET [address] [phone] 03/01/2024 8:00 EDT Appointment [facility] Radiology Nuclear Medicine and [address] [phone] 03/01/2024 9:30 EDT Appointment [facility] Radiology Nuclear Medicine and [address] [phone] documented as of this encounter Visit Diagnoses Not on filedocumented in this encounter Discontinued Medications Medication Sig Discontinue Reason Start Date End Da te SUMAtriptan (IMITREX) 20 mg/actuation nasal spray Instill 1 [place] into right nostril as needed for Migraine. 06/27/2023 06/29/2023 documented as of this encounter Care Teams Manager Decision Support Relationship Specialty Start Date End Date Carrington Calderon MD [address] [place] [phone] PCP - General Internal Medicine - Primary Care 12/09/20 Abigail Díaz Nitroglycerin Separator Operator 04/21/23 Carmelo Hendrickson Coordinator 12/01/23 documented as of this encounter
--- OUTSIDE RECORDS SUMMARY | 2023-12-16 00:33 | XMS_ITS | Encounter Summary ---
Author Organization [facility] Address [address] [place] [address] Care Team Providers Care Equipment Installation Professional Name Role Phone Carrington Calderon MD Primary Care Provi anders Amrita Asencio Unavailable [phone] Reason for Referral * Consult (Routine/Next Available) - Closed Specialty Diagnoses / Procedures Referred By Kit goode Referred To Contact Diagnoses Carrington Rothman MD [address] [phone] [facility] Health Team [address] [place] [id number] Referral ID Status Reason Start Date Expiration Date V isits Requested Visits Authorized [id number] Closed Specialty Services Required 04/21/2023 1 0 Question Answer Reason for Request: smoking cessation * Referral (Routine/Next Available) - Authorization Not Required Specialty Diagnoses / Procedures Referred By Kit goode Referred To Contact Multidisciplinary Diagnoses Carrington Rothman MD [address] [phone] [facility] Health Team [address] [facility] [address] [address] Referral ID Status Reason Start Date Expiration Date Visits Requested Visits Authorized [id number] Authorization Not Required Specialty Services Required 04/21/20 23 1 1 Question Answer Reason for Request: tobacco cessation support Encounter Details Date Type Department Care Team (Late st Contact Info) Description 04/21/2023 Patient Outreach [facility] Adult Primary Care [address] [address] Bre Amrita Smoking (Primary Dx) Social History Tobacco Use Types [...] place to sleep or slept in a half-way (including now)? No 11/17/2022 Interpersonal Safety Answer [...] as of this encounter Progress Notes * Amrita Asencio - 04/21/2023 1104 EST [facility] Care Management Assessment and Care Plan Referral Reason: interested in therapy Pertinent medical and behavioral health issues: ENT Chronic left ear pain ?? Infectious Disease Skin infection ?? Endocrine/Metabolic Pannus, abdominal Type 2 diabetes mellitus with diabetic polyneuropathy, with long-term current use of insulin ([facility]) ([facility]) ?? Gastrointestinal/Abdominal Gastroparesis ?? Psychiatric Anxiety and depression ?? Musculoskeletal Chronic midline low back pain without sciatica Neuropathic diabetic ulcer of foot ([facility]) Family history of rheumatoid arthritis ?? Neurological Migraine with aura and without status migrainosus, not intractable ?? Other Tobacco use Has the patient had an inpatient hospitalization or an ED visit within the last year: Yes If yes, what was the patient's primary diagnosis for their hospitalization or ED visit? Non-intractable vomiting with nausea Patient Care Team: Carrington Calderon MD as PCP - General (Internal Medicine - Primary Care) Medications: Current Outpatient Medications: ??? acetaminophen (TYLENOL) 325 [...] (10 doses), Disp: 10 Tablet, Rfl: 11 CM reviewed medication list in the chart Living Arrangement: Patient reports that she lives in a multigenerational home, children, mother and two aunts Social Supports: Patient reports and friends Activities requiring assistance: Independent with ADLs Current plan for assistance with ADLs: n/a Need for caregiver resources in order to meet patient's ADL needs: not applicable Hearing/Vision: wears glasses Cognitive Function: No cognitive impairment identified Health literacy Assessment: patient is able to read/write, appropriate to their developmental age Social Determinants of Health: SDOH screen completed during visit: No Food Insecurity: No Food Insecurity (11/17/2022) Hunger Vital Sign ??? Worried About Running Out of Food in the Last Year: Never true ??? Ran Out of Food in the Last Year: Never true Financial Resource Strain: Low Risk (11/17/2022) Overall Financial Resource Strain (CARDIA) ??? Difficulty of Paying Living Expenses: Not hard at all Housing Stability: Unknown (11/17/2022) Housing Stability Vital Sign ??? Unable to Pay for Housing in the Last Year: No ??? Number of Places Lived in the Last Year: Not on file ??? Unstable Housing in the Last Year: No Transportation Needs: No Transportation Needs (11/17/2022) PRAPARE - Transportation ??? Lack of Transportation (Medical): No ??? Lack of Transportation (Non-Medical): No Depression: At risk (11/17/2022) PHQ-2 ??? PHQ-2 Score: 3 Alcohol Use: Not At Risk (11/20/2020) AUDIT-C ??? Frequency of Alcohol Consumption: Monthly or less ??? Average Number of Drinks: 1 or 2 ??? Frequency of Binge Drinking: Never Tobacco Use: Medium Risk (03/16/2023) Patient History ??? Smoking Tobacco Use: Former ??? Smokeless Tobacco Use: Never ??? Passive Exposure: Not on file Healthcare Insurance: Payer/Plan Subscr Sex Relation Sub. Ins. ID Effective Group Num 1. [place]* ASUNCION LUO 05/08/1986 Male Spouse [id number] 02/14/22 [id number] [place] [address] 2. MEDICAID ACO * CRISTY LUO 1985 Female Self [id number] 06/06/22 [address] Any gaps or barriers with healthcare insurance coverage: No DME: scooter, due to amputee diabetic sensor DME vendor: [employer], [place] secondary insurance covers supplies Barriers to using technology: none identified Preferred method of communication: Text, Phone Call, MyChart Message and Email Cultural, spiritual or language factors affecting health: none identified Existing Community Resources: None reported, patient reports that she is well resource Gaps in Resources Identified: in need of therapy resource Advance Directive on File: Yes Prioritized Patient Identified Goals: (needs to include one self-management goal): 1. Stella will contact mental health resources provided today within 1 week and will contact children's zoo caretaker if additional assistance is needed as discussed. 2. stella will schedule a counseling appointment with at least one of the counselors provided today within 1 week and will follow up with children's zoo caretaker at next scheduled follow up on within 1 month. Assessment/Clinical Summary and Plan: (Address any positive screens, Barriers identified to meetinggoals and follow up plan for communication): ??? Chief complaint: Patient is looking for therapy as her adoptive children's biological parents are becoming a part of her Childrens lives. She also has anxious symptoms arising ??? Seeking counseling for increased skills, a person to review and guide her with managing feelings that are overwhelming ??? History of mental health or substance use treatment: Patient reports that she has a history of counseling ??? Social Determinants Of Health Concerns: none reported ??? Wellness: o Sleep: Patient reports disrupted sleep, 60mg of melatonin and a shot of Nyquil, and continues to have difficulty(4 hours nightly) o Diet: Patient reports inconsistency and has some medical difficulty o Exercise: reports exercise ??? Suicide Screen: Patient reports none at this time, reports 12 years ago she had an attempt and had treatment ??? Substance Use: no illegal use, reports some marijuana use to combat anxiety symptoms imaging center manager reviewed current mental health resources with Stella including local counseling options within their insurance network; online counseling platforms; online therapist directories; self-help resources; support groups; and local and national mental health crisis information. CM will follow-up in one month AMRITA ASENCIO 04/21/2023 11:05 documented in this encounter Plan of Treatment Upcoming Encounters Date Type Department Care Team (Late st Contact Info) Description 02/21/2024 9:45 EDT Office Visit [facility] Adult Primary Care - [address] [phone] Carrington Calderon MD [address] [place] [phone] 02/27/2024 8:30 EDT Telemedicine [facility] Sleep Program - [address] [phone] Rn, Sleep 02/29/2024 10:30 EDT Appointment [facility] Radiology Nuclear Medicine and PET [address] [phone] 02/29/2024 14:30 EDT Appointment [facility] Radiology Nuclear Medicine and PET [address] [phone] 03/01/2024 8:00 EDT Appointment [facility] Radiology Nuclear Medicine and PET [address] [phone] 03/01/2024 9:30 EDT Appointment [facility] Radiology Nuclear Medicine and PET [address] [phone] Scheduled Referrals Name Type Priority Associated Diagnoses Order Schedule AMB CONS/FOLLOW UP OUTPATIENT CARE MANAGEMENT - [facility] Outpatient Referral Routine Consult Smoking Expected: 04/28/2023 (Approximate), Expires: 04/21/2024 AMB CONS/FOLLOW UP SMOKING CESSATION PROGRAM Outpatient Referral Routine Consult Smoking Expected: 04/28/2023 (Approximate), Expires: 04/21/2024 documented as of this encounter Visit Diagnoses Diagnosis Smoking- Primary Tobacco use disorder documented in this encounter Care Teams Equipment Installation Professional Relationship Specialty Start Date End Date Carrington Calderon MD [address] [place] [phone] PCP - General Internal Medicine - Primary Care 12/09/20 Amrita Asencio Commercial Driver'S License Driver 04/21/23 documented as of this encounter
--- OUTSIDE RECORDS SUMMARY | 2023-12-16 00:33 | XMS_ITS | Encounter Summary ---
Author Organization [facility] Address [address] [place] [address] Care Team Providers Care Music Producer Name Role Phone Carrington Caldreon MD Primary Care Provi anders Abigail Díaz Unavailable Carmelo Hendrickson Unavailable Unavailable Reason for Visit * Reason Comments Medications Refill Encounter Details Date Type Department Care Team (Late st Contact Info) Description 03/31/2023 Refill [facility] Adult Primary Care - [address] [phone] Vicki Mosqueda MD [address] [place] [phone] Medications Refill Social History Tobacco Use Types [...] in a skilled nursing (including now)? No 11/17/2022 Interpersonal Safety Answer [...] Dispensed Refills Start Date End Da te SEMGLEE,INSULIN GLARG-YFGN,PEN 100 unit/mL (3 mL) insulin pen INJECT 40 UNITS SUBCUTANEOUSLY AT BEDTIME 12 mL 3 04/01/2023 06/27/2023 documented in this encounter Miscellaneous Notes * Telephone Encounter - Joss Washington RN - 04/01/2023 1043 EDT Requested Prescriptions Pending Prescriptions Disp Refills ??? SEMGLEE,INSULIN GLARG-YFGN,PEN 100 unit/mL (3 mL) insulin pen [Pharmacy Med Name: Semglee (yfgn) 100 UNIT/ML Subcutaneous Solution Pen-injector] 12 mL 0 Sig: INJECT 40 UNITS SUBCUTANEOUSLY AT BEDTIME [facility] [address] [place] [address] Confirmed Pharmacy? Yes Patient out of medication? Unknown How many pills does patient have left? unknown Last Refill Date: 11/17/22 Refills left? (explain exceptions requiring early refill) No Recent Visits Date Type Provider Dept 11/17/22 Office Visit Carrington Calderon MD [facility] Adult Prim Care 09/02/22 Office Visit Nimisha Clifton NP [facility] Adult Prim Care 05/20/22 Office Visit Rachel Stein PA-C [facility] Adult Prim Care Showing recent visits within past 540 days with a meds authorizing provider and meeting all other requirements Future Appointments Date Type Provider Dept 06/27/23 Appointment Carrington Calderon MD [facility] Adult Prim Care Showing future appointments within next 150 days with a meds authorizing provider and meeting all other requirements Future appointment: Already Scheduled JOSS WASHINGTON RN 04/01/2023 10:43 documented in this encounter Plan of Treatment Upcoming Encounters Date Type Department Care Team (Late st Contact Info) Description 02/21/2024 9:45 EDT Office Visit [facility] Adult Primary Care - [address] [phone] Carrington Calderon MD [address] [place] [phone] 02/27/2024 8:30 EDT Telemedicine [facility] Sleep Program [address] [phone] Rn, Sleep 02/29/2024 10:30 EDT Appointment [facility] Radiology Nuclear Medicine and PET [address] [phone] 02/29/2024 14:30 EDT Appointment [facility] Radiology Nuclear Medicine and PET [address] [id number] 03/01/2024 8:00 EDT Appointment [facility] Radiology Nuclear Medicine and PET [address] [id number] 03/01/2024 9:30 EDT Appointment [facility] Radiology Nuclear Medicine and PET [address] [phone] documented as of this encounter Visit Diagnoses Not on filedocumented in this encounter Care Teams Music Producer Relationship Specialty Start Date End Date Carrington Calderon MD [address] [place] [phone] PCP - General Internal Medicine - Primary Care 12/09/20 Abigail Díaz Job Estimator 04/21/23 Carmelo Hendrickson Coordinator 12/01/23 documented as of this encounter
--- OUTSIDE RECORDS SUMMARY | 2023-12-16 00:33 | XMS_ITS | Encounter Summary ---
Author Organization [facility] Address [address] [place] [address] Care Team Providers Care Senior Communications Specialist Name Role Phone Carrington Calderon MD Primary Care Provi anders Reason for Visit * Reason Comments Med Change Request Encounter Details Date Type Department Care Team (Late st Contact Info) Description 01/06/2023 [facility] Adult Primary Care [facility] [address] [place], [place] [phone] Staci Adhikari MD 1 [facility] [address] [place] [phone] Med Change Request Social History Tobacco [...] encounter Miscellaneous Notes * Telephone Encounter - Lynda Henriquez RN - 01/07/2023 0813 EDT Duplicate, refilled 01/06/23 documented in this encounter Plan of Treatment Upcoming Encounters Date Type Department Care Team (Late st Contact Info) Description 02/21/2024 9:45 EDT Office Visit [facility] Adult Primary Care - [address] [phone] Carrington Calderon MD [address] [phone] 02/27/2024 8:30 EDT Telemedicine [facility] Sleep Program - [address] [phone] Rn, Sleep 02/29/2024 10:[address] [facility] Radiology Nuclear Medicine and PET [address] [phone] 02/29/2024 14:[address] [facility] Radiology Nuclear Medicine and PET [address] [id number] 03/01/2024 8:[address] [facility] Radiology Nuclear Medicine and [address] [phone] 03/01/2024 9:[address] [facility] Radiology Nuclear Medicine and PET [address] [phone] documented as of this encounter Visit Diagnoses Diagnosis Chronic midline low back pain without sciatica- Primary documented in this encounter Care Teams Senior Communications Specialist Relationship Specialty Start Date End Date Carrington Calderon MD 1 [facility] [address] [place] [phone] PCP - General Internal Medicine - Primary Care 12/09/20 documented as of this encounter
--- OUTSIDE RECORDS SUMMARY | 2023-12-16 00:33 | XMS_ITS | Encounter Summary ---
Author Organization [facility] Address [address] [place] [address] Care Team Providers Care Milk Collector Name Role Phone Carrington Calderon MD Primary Care Provi anders Reason for Visit * Reason Comments Med Change Request Encounter Details Date Type Department Care Team (Late st Contact Info) Description 12/20/2022 Refill [facility] Adult Primary Care [facility] [address] [place], [place] [phone] Carrington Calderon MD 1 [facility] Level [address] [place] [phone] Med Change Request Social History Tobacco [...] place to sleep or slept in a usp (including now)? No 11/17/2022 Interpersonal Safety Answer [...] encounter Miscellaneous Notes * Telephone Encounter - Eryn Pack RN - 12/20/2022 1215 EDT prochlorperazine (COMPAZINE) 25 mg suppository [[id number]] ?? Order Details Dose: 25 mg Route: rectal Frequency: EVERY 12 HOURS PRN for Nausea Dispense Quantity: 6 Suppository Refills: 11 ?? Sig: Place 1 Suppository rectally every 12 hours as needed for Nausea. ?? Start Date: 12/17/22 End Date: -- Written Date: 12/17/22 Expiration Date: -- ?? documented in this encounter Plan of Treatment Upcoming Encounters Date Type Department Care Team (Late st Contact Info) Description 02/21/2024 9:45 EDT Office Visit [facility] Adult Primary Care - [address] [phone] Carrington Calderon MD 1 [facility] 1 [place] [phone] 02/27/2024 8:30 EDT Telemedicine [facility] Sleep Program - [address] [phone] Rn, Sleep 02/29/2024 10:30 EDT Appointment [facility] Radiology Nuclear Medicine and PET - [address] [phone] 02/29/2024 14:30 EDT Appointment [facility] Radiology Nuclear Medicine and PET - [address] [phone] 03/01/2024 8:00 EDT Appointment [facility] Radiology Nuclear Medicine and PET - [address] [id number] 03/01/2024 9:30 EDT Appointment [facility] Radiology Nuclear Medicine and PET - [address] [phone] documented as of this encounter Visit Diagnoses Diagnosis Cyclic vomiting syndrome- Primary Persistent vomiting documented in this encounter Care Teams Milk Collector Relationship Specialty Start Date End Date Carrington Calderon MD 1 [facility] 1 [place] [phone] PCP - General Internal Medicine - Primary Care 12/09/20 documented as of this encounter
--- OUTSIDE RECORDS SUMMARY | 2023-12-16 00:33 | XMS_ITS | Encounter Summary ---
Author Organization [facility] Address [address] [place] [address] Care Team Providers Care Carbide Operator Name Role Phone Carrington Calderon MD Primary Care Provi anders Reason for Visit * Reason Comments Emesis Reports multiple day s of vomiting. Hx gastroenteritis with similar presentations. Endorses dizziness. Lost consciousness in triage. VSS. Reports pain everywhere. Encounter Details Date Type Department Care Team (Late st Contact Info) Description 12/13/2022 17:42 EDT - 12/13/2022 21:40 EDT Emergency [facility] Emergency Department - [address] [id number] Brijesh Esposito MD [address] [facility], Level [address] [place] [address] Non-intractable vomiting with nausea (Primary Dx) Discharge Disposition: Home or Self Care Social [...] place to sleep or slept in a senior care (including now)? No 11/17/2022 Interpersonal Safety Answer Date Record ed How often does anyone, inclnick chivo family, hit, punch or physically hurt you? Never 11/17/2022 How often does anyone, bennynick chivo family, insult, scream, curse or threaten to hurt you? Never 11/17/2022 Sex and Gender Information Value Date Recorded Sex Assigned at Not on file Gender Identity Female 06/18/2019 8:54 EST Sexual Orientation Not on file documented as of this encounter Last Filed Vital Signs Vital Sign Reading Time Taken Comments Blood Pressure 141/104 12/13/2022 2126 EDT Pulse - - Temperature 37.6 ??C (99.7 ??F) 12/13/20222125 EDT Respiratory Rate 21 12/13/20222125 EDT Oxygen Saturation 100% 12/13/20222125 EDT Inhaled Oxygen Concentration - - Weight - [...] No 10/02/2020 documented as of this encounter Discharge Instructions * Discharge Instructions* Fran Bush MD - 12/13/2022 21:24 EDT You were seen in the ER today for evaluation of nausea, vomiting. I suspect this is a flare of her gastroparesis. Please try to stay hydrated as best you can and use Zofran and Compazine as needed for nausea. Do not exceed the usage as outlined by the pharmacist or by the prescription. Do not hesitate to return if your pain worsens or you are unable to tolerate oral intake. documented in this encounter Medications at Time of Discharge Medication Sig Dispensed Refills Start Date End Date acetaminophen (TYLENOL) 325 mg tablet Take 2 Tabs by mouth every 4 hours as needed for Pain. 08/20/2020 lidocaine 5 % (LIDODERM) 5 % patchIndications:Stem Frazer gordo midline low back pain without sciatica Place 1 Patch onto the skin daily. Patch(es) may remain in place for up to 12 hours in any 24-hour period. 30 Patch 2 09/02/2022 blood glucose meterIndications:Type 2 diabetes mellitus with diabetic polyneuropathy, with long-term current use of insulin ([facility]) One Touch Verio Flex meter. 1 Each 12/21/2021 06/27/2023 blood glucose test strips Brand: FreeStyle Precision Cristo, use as directed if Freestyle Vignesh censor isnt working 100 Each 3 10/06/2020 06/27/2023 blood glucose test strips One Touch Verio IQ or other brand compatible with meter and covered by patient's insurance. Testing QID. 100 Each 5 08/11/2020 06/27/2023 DULoxetine (CYMBALTA) 20 mg delayed release capsuleIndications:An xiety and depression Take 1 Capsule by mouth daily. 30 Capsule 2 11/17/2022 12/17/2022 empagliflozin (JARDIANCE ORAL) Take by mouth. gabapentin (NEURONTIN) 300 mg capsuleIndications:Di abetic polyneuropathy associated with type 2 diabetes mellitus ([facility]) Take 1 Capsule by mouth every morning AND 3 Capsules at bedtime. 360 Capsule 4 11/17/2022 06/27/2023 insulin glargine (LANTUS SOLOSTAR/SEMGLEE) 100 unit/mL (3 mL) injection penIndications:Type 2 diabetes mellitus with diabetic polyneuropathy, with long-term current use of insulin ([facility]) Inject 40 Units into the skin at bedtime. 36 mL 4 11/17/2022 06/27/2023 insulin lispro (HUMALOG KWIKPEN INSULIN) 100 unit/mL injectable penIndications:Type 2 diabetes mellitus with diabetic polyneuropathy, with long-term current use of insulin ([facility]) Inject 8-14 Units into the skin 3 times daily with meals. 15 mL 3 11/18/2022 04/04/2023 insulin pen needles 31G x 5/16Indications:Type 2 diabetes mellitus with hyperglycemia, with long-term current use of insulin ([facility]) Use 1 pen needle as directed 4 times daily. 400 Each 2 09/02/2020 03/16/2023 lancets Brand: Freestyle, use as directed if Freestyle Vignesh censor isnt working 100 Each 3 10/06/2020 03/16/2023 lancets One Touch Delica or other brand compatible with lancing device and covered by patient's insurance. 100 Each 5 10/01/2020 03/16/2023 LORazepam (ATIVAN) 0.5 mg tabletIndications:Anx iety Take 1 Tablet by mouth daily as needed for Anxiety. Daily Max: 0.5 mg 30 Tablet 3 11/17/2022 06/27/2023 metoclopramide HCl (REGLAN) 10 mg tablet Take 1 Tablet by mouth 3 times daily before meals. 270 Tablet 3 03/02/2022 06/27/2023 nystatin (MYCOSTATIN) creamIndications:Skin infection Apply to area under abdominal/groin skin twice daily 30 g 12/21/2021 03/16/2023 nystatin (MYCOSTATIN) powder Apply topically to affected area 2 times daily as needed (rash). 15 g 2 09/02/2022 03/16/2023 omeprazole (PRILOSEC) 20 mg capsuleIndications:Ga stroparesis Take 1 Capsule by mouth daily. 90 Capsule 3 11/17/2022 12/17/2022 ondansetron (ZOFRAN-ODT) 4 mg disintegrating tabletIndications:Gas troparesis Take 1 Tablet by mouth every 8 hours as needed for Nausea. 30 Tablet 11 11/17/2022 06/27/2023 prochlorperazine (COMPAZINE) 10 mg tablet Take 1 Tablet by mouth every 8 hours as needed for Nausea. 8 Tablet 12/13/2022 12/17/2022 prochlorperazine (COMPAZINE) 25 mg suppositoryIndication s:Gastroparesis Place 1 Suppository rectally every 12 hours as needed for Nausea. 6 Suppository 12/21/2021 12/17/2022 SITagliptin phosphate (JANUVIA) 100 mg tabletIndications:Typ e 2 diabetes mellitus with diabetic polyneuropathy, with long-term current use of insulin ([facility]) Take 1 Tablet by mouth daily. 90 Tablet 4 11/17/2022 06/27/2023 traMADol (ULTRAM) 50 mg tabletIndications:Chr onic midline low back pain without sciatica Take 1 Tablet by mouth every 6 hours as needed for Pain. Daily Max: 200 mg 30 Tablet 5 11/17/2022 01/06/2023 documented as of this encounter Ordered Prescriptions Prescription Sig Dispensed Refills Start Date End Da te prochlorperazine (COMPAZINE) 10 mg tablet Take 1 Tablet by mouth every 8 hours as needed for Nausea. 8 Tablet 12/13/2022 12/17/2022 documented in this encounter Discharge Disposition Disposition Code Departure Means Destination Comment s Home or Self Skilled Nursing documented in this encounter ED Notes * Catherine Correia RN - 12/13/20222126 EDT Discharge instructions, printed AVS, and return precautions reviewed with pt and . - pt and verbalizes understanding of teaching. VS reassessed. PIV removed. Pt ambulatory with steady gait. Discharged home. * Margarette Arshad RN - 12/13/2022 2044 EDT Notified EM resident of critical ketone value in urine. * Fran Bush MD - 12/13/2022 1834 EDT Emergency Department Visit This documentation is recorded by Aga Centeno acting as Scribe under the direction and presence of Fran Bush MD, and Brijesh Esposito MD. Fran Bush MD, and Brijesh Esposito MD: I personally performed the services recorded by the scribe in my presence. I confirm the scribe's documentation has been reviewed by me to accurately and completely record my work, treatment, procedures, and medical decision making. Medical Decision Making Patient is a 37 y.o. female with history of type 2 diabetes, migraines, gastroparesis, and tobacco use who presents to the ED for emesis. Patient states this feels like prior gastroparesis flare. Differential includes gastroparesis, gastritis, electrolyte or metabolic abnormality On exam mildly uncomfortable with left upper quadrant tenderness. Suspect this is related to her persistent emesis. Initiating nausea treatment with Zofran, followed by Compazine. Fluid resuscitated with LR. Still with mild nausea so will administer low-dose droperidol. Patient feeling improved so will discharge with Compazine. Return precautions discussed including worsening pain. Considered symptomatic nephrolithiasis as a possible differential, but given patient's improvement with antiemetic control and history of highly similar episodes, think less likely at this time. Relevant Data as of 12/13/222212Dec 13, 20221838 EKG shows sinus rhythm at a rate 85, normal axis, QTc 432 [DP] 1850 WBC(!): 17.27 [JV] 1851 Anion Gap(!): 16 [JV] 1851 Potassium(!): 3.1 [JV] 185 Creatinine(!): 0.43 [JV] Relevant Data User Index [DP] Fran Bush MD [JV] Brijesh Esposito MD EKG shows sinus rhythm at a rate 85, normal axis, QTc 432 An EKG was obtained and independently interpreted. Laboratory data was reviewed. Upon departure from the Emergency Department, the patient's pain seemed to be 5 on a zero to ten scale. Condition at departure from the Emergency Department: Stable Disposition decisions were made weighing risks and benefits of hospitalization vs. outpatient treatment, the risk for further decompensation, and the patient???s wishes. Discharged. The patient was stable, improved, or requested discharge. Prior to discharge my usual and customary return precautions were reviewed with the patient and/or family. This included follow-up instructions and reasons to return to the Emergency Department if condition worsens, does not improve as expected, or other new concerns arise. Medical Decision Making Non-intractable vomiting with nausea: acute illness or injury Amount and/or Complexity of Data Reviewed Labs: ordered. Decision-making details documented in ED Course. Risk OTC drugs. Prescription drug management. Final diagnoses: Non-intractable vomiting with nausea Disposition: Discharged Chief complaint: emesis CINTHYA Huizar Young is a 37 y.o. female with type 2 diabetes, migraines, gastroparesis, and tobacco use whopresents to the ED for emesis. The patient explains 2 days of nausea and vomiting, stating it feelslike a gastroparesis flare. She associates pain in her LUQ that radiates to her back. She denies any hematemesis, diarrhea, fevers, painful urination, changes in diet, fevers, or chills. Lastly, she states that for her gastroparesis she normally takes Zofran, but right now Zofran isn't helping. History was provided by: patient Records reviewed include: Office visit from 11/17/2022 on Prilosec and Zofran for gastroparesis Patient's pertinent PMH, FH, SH were reviewed and edited as necessary. Nursing notes reviewed. A medical screening exam was performed. Physical Exam BP (!) 141/104 (BP Cuff Location: Right arm, BP Patient Position: Lying right side) Temp 37.6 ??C(99.7 ??F) (Oral) Resp 21 SpO2 100% Physical Exam Constitutional: Uncomfortable and stressed appearing. Head: Atraumatic Eyes: EOMI, no scleral icterus Mouth: Moist oral mucosa without apparent lesions Neck: Full ROM Cardiovascular: Tachycardic. Extremities warm and well perfused, no peripheral edema. Respiratory: Normal respiratory effort. Abdomen: Soft, nondistended Back: mild left sided CVAT Skin: No overt rashes on exposed skin Musculoskeletal: Moving extremities spontaneously; no gross deformities Neuro: Grossly neurologically intact with normal speech Psych: No agitation or overt thought disorder. Procedures Procedures Associated attestation - Brijesh Esposito MD - 12/15/2022 0922 EDT I, BRIJESH ESPOSITO MD, performed a history and exam of this patient and discussed the case with the resident. I have reviewed and edited this note, and the documentation is consistent with my findings, assessment and plan. I fully participated in the medical decision making. documented in this encounter Plan of Treatment Upcoming Encounters Date Type Department Care Team (Late st Contact Info) Description 02/21/2024 9:45 EDT Office Visit [facility] Adult Primary Care - [address] [id number] Carrington Calderon MD 1 [facility] 1 [place] [id number] 02/27/2024 8:30 EDT Telemedicine [facility] Sleep Program - [address] [address] Rn, Sleep 02/29/2024 10:30 EDT Appointment [facility] Radiology Nuclear Medicine and PET [address] [address] 02/29/2024 14:30 EDT Appointment [facility] Radiology Nuclear Medicine and PET [address] [address] 03/01/2024 8:00 EDT Appointment [facility] Radiology Nuclear Medicine and PET - [address] [address] 03/01/2024 9:30 EDT Appointment [facility] Radiology Nuclear Medicine and PET [address] [address] documented as of this encounter Procedures Procedure Name Priority Date/Time Associated Diagnosis Comments ECG REPORT - SCANNED 12/20/2022 6:15 EDT ECG REPORT - SCANNED 12/20/2022 6:15 EDT POCT TEST, CLINITEK STAT 12/13/2022 20:26 EDT POCT URINE DIPSTICK, CLINITEK STAT 12/13/2022 20:24 EDT POCT CSN BARCODE URINE PREG TEST STAT 12/13/2022 20:20 EDT POCT TEST, CLINITEK ORDER STAT 12/13/2022 20:20 EDT POCT CSN BARCODE URINE DIPSTICK STAT 12/13/2022 20:20 EDT POCT URINE CLINITEK (DIPSTICK) - DOES NOT REFLEX STAT 12/13/2022 20:20 EDT EKG 12-LEAD STAT 12/13/2022 18:09 EDT COMPLETE BLOOD COUNT AND DIFFERENTIAL STAT 12/13/2022 18:04 EDT COMPREHENSIVE METABOLIC PANEL (CMP) STAT 12/13/2022 18:04 EDT POCT GLUCOSE, INTERFACED Routine 12/13/2022 18:01 EDT documented in this encounter Results * ECG REPORT - SCANNED (12/20/2022 6:15 EDT) 12/20/2022 6:15 EDT Scan 2 Renal Nurse PROCEDURE/MINOR BRAULIO GICAL ORDERABLES * ECG REPORT - SCANNED (12/20/2022 6:15 EDT) 12/20/2022 6:15 EDT Scan 2 Renal Nurse PROCEDURE/MINOR BRAULIO GICAL ORDERABLES * POCT TEST, CLINITEK (12/13/2022 20:26 EDT) UPT Result Negative Negative 12/13/2022 20:32 EDT [facility] HN LAB COMMENT (CLINITEK, UPT) Test performed at Emergency Department 12/13/2022 20:32 EDT [facility] Comment:False negative resul ts may occur in women who are beyond 5-8 weeks gestation. Diagnosis of should be based on a correlation of test results with typical clinical signs and symptoms. Urine URINE SPECIMEN COLLECTION, CLEAN CATCH / Unknown 12/13/2022 20:26 EDT 12/13/2022 20:32 EDT Fran Bush MD POINT OF CARE TEST O RDERABLES [facility] [address] [place] [address] * (ABNORMAL) POCT URINE DIPSTICK, CLINITEK (12/13/2022 20:24 EDT) Color, UA Yellow Yellow 12/13/2022 20:26 EDT [facility] Clarity, UA Clear Clear 12/13/2022 20:26 EDT [facility] Glucose, UA Negative Negative mg/dL 12/13/2022 20:26 [facility] Bilirubin, UA Negative Negative 12/13/2022 20:26 [facility] Ketones, UA 3+(AA) Negative 12/13/2022 20:26 [facility] Specific [place], Urine 1.020 1.001 - 1.035 12/13/2022 20:26 [facility] Blood, UA 3+(A) Negative 12/13/2022 20:26 [facility] pH, UA 7.0 4.6 - 8.0 12/13/2022 20:26 [facility] Protein, UA 1+(A) Negative 12/13/2022 20:26 [facility] Urobilinogen, UA 0.2 0.2 - 1.0 mg/dL 12/13/2022 20:26 [facility] Nitrite, UA Negative Negative 12/13/2022 20:26 [facility] Leuk Esterase Trace(A) Negative 12/13/2022 20:26 [facility] HN LAB COMMENT (CLINITEK, UR) Test performed at Emergency Department 12/13/2022 20:26 [facility] Urine URINE SPECIMEN COLLECTION, CLEAN CATCH / Unknown 12/13/2022 20:24 EDT 12/13/2022 20:26 EDT Fran Bush MD POINT OF CARE TEST O RDERABLES Performing Organization Address [facility] de Phone Number [facility] [address] [place] [address] * POCT CSN BARCODE URINE DIPSTICK (12/13/2022 20:20 EDT) Urine URINE SPECIMEN COLLECTION, CLEAN CATCH / Unknown Urine Collect / Unknown 12/13/2022 20:20 EDT 12/13/2022 20:20 EDT Fran Bush MD LAB INFO SERVICE AND SUPPORT & PHONE RESULT Performing Organization Address [facility] Co de Phone Number [facility] [address] [place] [address] * POCT CSN BARCODE URINE PREG TEST (12/13/2022 20:20 EDT) Urine URINE SPECIMEN COLLECTION, CLEAN CATCH / Unknown Urine Collect / Unknown 12/13/2022 20:20 EDT 12/13/2022 20:20 EDT Fran Bush MD LAB INFO SERVICE AND SUPPORT & PHONE RESULT [facility] [address] [place] [address] * EKG 12-LEAD (12/13/2022 18:09 EDT) 12/13/2022 18:0 9 EDT Narrative [facility] EKG - 12/17/2022 9:43 EDT ?[facility] Emergency ? Test Date: ?2022-12-13 Pat Name: ? CRISTY VALERIO ?Department: ?? ED ? Room: ? AC17 Gender: ? Female ? Manager Civil: ?? [id number] : ?1985 ? Requested By: CATE Zhao Number: [id number] ? Reading : ?? CINDY SNYDER MD ? Measurements Intervals ?[place] ? Rate: ? 85 ? P: ?57 [place]: ? 144 ?QRS: ?5 QRSD: ? 97 ? T: ?-1 QT: ? 363 ? QTc: ?432 ? Interpretive Statements SINUS RHYTHM WITH SINUS ARRHYTHMIA Compared to ECG 05/20/2022 14:39:55 Sinus tachycardia no longer present T-wave abnormality no longer present I reviewed the tracing and have either agreed or edited the findings in this report. Electronically Signed On 12-17-2022 9:43:44 EDT by CINDY SNYDER MD. Procedure Note Cindy Snyder Jr., MD - 12/17/2022 [facility] Emergency Test Date: 2022-12-13 Pat Name: CRISTY LUO Department: ED Room: [facility] Gender: Female Manager Civil: [id number] : 1985 Requested By: CATE COLEY Order Number: [id number] Sammie MD: CINDY SNYDER MD Measurements Intervals [place] Rate: 85 P: 57 [place]: 144 QRS: 5 QRSD: 97 T: -1 QT: 363 QTc: 432 Interpretive Statements SINUS RHYTHM WITH SINUS ARRHYTHMIA Compared to ECG 05/20/2022 14:39:55 Sinus tachycardia no longer present T-wave abnormality no longer present I reviewed the tracing and have either agreed or edited the findings inthis report. Electronically Signed On 12-17-2022 9:43:44 EDT by CINDY SANDOVAL. Brijesh Esposito MD CARDIAC ECG ORDERABL ES [facility] EKG * (ABNORMAL) COMPLETE BLOOD COUNT AND DIFFERENTIAL (12/13/2022 18:04 EDT) WBC 17.27(H) 4.00 - 12.40 K/cmm 12/13/2022 18:17 [facility] RBC 4.72 3.86 - 5.04 M/cmm 12/13/2022 18:17 [facility] Hemoglobin 14.9 11.6 - 15.2 g/dL 12/13/2022 18:17 [facility] HCT 41.3 34.9 - 44.4 % 12/13/2022 18:17 [facility] MCV 88 81 - 98 fL 12/13/2022 18:17 [facility] MCH 31.6 26.7 - 33.3 pg 12/13/2022 18:17 [facility] MCHC 36.1(H) 32.1 - 35.9 g/dL 12/13/2022 18:17 [facility] RDW-CV 13.0 <14.7 % 12/13/2022 18:17 [facility] RDW-SD 41.4 <50.4 fl 12/13/2022 18:17 [facility] PLT 434(H) 141 - 377 K/cmm 12/13/2022 18:17 [facility] MPV 9.3(L) 9.5 - 12.7 fL 12/13/2022 18:17 [facility] % Neutrophils 65.9 % 12/13/2022 18:17 [facility] % Lymphocytes 25.1 % 12/13/2022 18:17 [facility] % Monocytes 8.2 % 12/13/2022 18:17 [facility] % Eosinophils 0.3 % 12/13/2022 18:17 [facility] % Basophils 0.3 % 12/13/2022 18:17 [facility] % Immature Grans 0.2 % 12/14/19 18:17 [facility] Absolute Neutrophils 11.39(H) 2.20 - 8.85 K/cmm 12/13/2022 18:17 [facility] Absolute Lymphocytes 4.33(H) 1.09 - 3.30 K/cmm 12/13/2022 18:17 [facility] Absolute Monocytes 1.41(H) 0.10 - 0.80 K/cmm 12/13/2022 18:17 [facility] Absolute Eosinophils 0.05 0.03 - 0.61 K/cmm 12/13/2022 18:17 [facility] ABS Basophils 0.05 0.01 - 0.11 K/cmm 12/13/2022 18:17 [facility] Absolute Immature Grans 0.04 0.00 - 0.06 K/cmm 12/13/2022 18:17 [facility] Type of Differential: Auto 12/13/2022 18:17 [facility] Blood VENOUS BLOOD / Unknown Venipuncture / Unknown 12/13/2022 18:04 EDT 12/13/2022 18:08 EDT Fran Bush MD PACKAGES & DNA PROBE ORDERABLES [facility] [address] [place] [address] * (ABNORMAL) COMPREHENSIVE METABOLIC PANEL (CMP) (12/13/2022 18:04 EDT) Sodium 138 136 - 145 mmol/L 12/13/2022 18:27 [facility] Potassium 3.1(L) 3.5 - 5.0 mmol/L 12/13/2022 18:27 [facility] Chloride 94(L) 96 - 110 mmol/L 12/13/2022 18:27 [facility] CO2 Total 28 22 - 32 mmol/L 12/13/2022 18:27 [facility] Glucose 220(H) 70 - 99 mg/dl 12/13/2022 18:27 [facility] BUN 17 10 - 26 mg/dL 12/13/2022 18:27 [facility] Creatinine 0.43(L) 0.52 - 1.04 mg/dL 12/13/2022 18:27 [facility] eGFR 128 >60 mL/min/1.7 3m2 12/13/2022 18:27 [facility] Total Protein 7.4 6.3 - 8.2 g/dL 12/13/2022 18:27 [facility] Albumin 4.3 3.4 - 4.9 g/dL 12/13/2022 18:27 [facility] Alkaline Phosphatase 92 38 - 126 U/L 12/13/2022 18:27 [facility] AST 27 15 - 46 U/L 12/13/2022 18:27 [facility] ALT 31 <35 U/L 12/13/2022 18:27 [facility] Bilirubin, Total 0.6 <1.4 mg/dL 12/14/19 18:27 [facility] Calcium 9.8 8.5 - 10.5 mg/dL 12/13/2022 18:27 [facility] Albumin/Globulin Ratio 1.4 1.0 - 2.5 g/dL 12/13/2022 18:27 [facility] Anion Gap 16(H) 5 - 14 mmol/L 12/13/2022 18:27 [facility] Blood VENOUS BLOOD / Unknown Venipuncture / Unknown 12/13/2022 18:04 EDT 12/13/2022 18:08 EDT Fran Bush MD CHEMISTRY & BLOOD GA S ORDERABLES Performing Organization Address City/[facility]/ZIP Co de Phone Number [facility] [address] [place] [address] * (ABNORMAL) POCT GLUCOSE, INTERFACED (12/13/2022 18:01 EDT) Glucose, POC 223(H) 70 - 100 mg/dL 12/13/2022 18:03 EDT [facility] HN LAB POC COMMENT (GLUCOSE) Test Performed by Nursing Services 12/13/2022 18:03 EDT [facility] Blood CAPILLARY BLOOD / Unknown 12/13/2022 18:01 EDT 12/13/2022 18:03 EDT Provider Unknown POINT OF CARE TEST O RDERABLES [facility] [address] [place] [address] documented in this encounter Visit Diagnoses Diagnosis Non-intractable vomiting with nausea- Primary documented in this encounter Administered Medications Inactive Administered Medications - up to 3 most recent administrations Medication Order MAR Action Action Date Dose Rate Site aluminum & magnesium hydroxide-simethicone (MYLANTA-DS) 400-400-40 mg/5 mL suspension 15 mL 15 mL, oral, NOW X1, 1 dose, On Tue12/13/22 at 1845, STAT Given 12/13/2022 18:57 EDT 15 mL droPERidol (INAPSINE) injection 0.625 mg 0.625 mg, intravenous, NOW X1, 1 dose, On Tue12/13/22 at 2030, STAT Given 12/13/2022 20:47 EDT 0.625 mg lactated ringers BOLUS 1,000 mL 1,000 mL, intravenous, NOW X1, 1 dose, On Tue12/13/22 at 1800, STAT New Bag 12/13/2022 18:06 EDT 1,000 mL ondansetron (PF) (ZOFRAN) injection 4 mg 4 mg, intravenous, NOW X1, 1 dose, On Tue12/13/22 at 1800, STAT Given 12/13/2022 18:05 EDT 4 mg prochlorperazine edisylate (COMPAZINE) injection 10 mg 10 mg, intravenous, NOW X1, 1 dose, On Tue12/13/22 at 1845, STAT Given 12/13/2022 18:57 EDT 10 mg documented in this encounter Active and Recently Administered Medications Times are shown in EDT. Scheduled Medication Order 12/11/2022 12/12/2022 12/13/2022 aluminum & magnesium hydroxide-simethicone (MYLANTA-DS) 400-400-40 mg/5 mL suspension 15 mL (COMPLETED)(Linked Group 1) 15 mL, oral, NOW X1, 1 dose, On Tue12/13/22 at 1845, STAT 1857 (Given - Provid er: Margarette Arshad RN) droPERidol (INAPSINE) injection 0.625 mg (COMPLETED) 0.625 mg, intravenous, NOW X1, 1 dose, On Tue12/13/22 at 2030, STAT 2046 (Given - Provid er: Margarette Arshad RN) lactated ringers BOLUS 1,000 mL (COMPLETED) 1,000 mL, intravenous, NOW X1, 1 dose, On Tue12/13/22 at 1800, STAT 1806 (New Bag - Prov ider: Margarette Arshad RN)1915 (IV Stopped - Provider: Margarette Arshad RN) lidocaine (XYLOCAINE) 2 % viscous solution 15 mL(Linked Group 1) 15 mL, oral, NOW X1, 1 dose, On Tue12/13/22 at 1845, STAT 1858 (Not Given - Pr ovider: Margarette Arshad RN - Reason: Other) ondansetron (PF) (ZOFRAN) injection 4 mg (COMPLETED) 4 mg, intravenous, NOW X1, 1 dose, On Tue12/13/22 at 1800, STAT 1805 (Given - Provid er: Margarette Arshad RN) prochlorperazine edisylate (COMPAZINE) injection 10 mg (COMPLETED) 10 mg, intravenous, NOW X1, 1 dose, On Tue12/13/22 at 1845, STAT 1857 (Given - Provid er: Margarette Arshad RN) Linked Groups Order Group 1: lidocaine (XYLOCAINE) 2 % viscous solution 15 mLJump to med 15 mL, oral, NOW X1, 1 dose, On Tue12/13/22 at 1845, STAT And aluminum & magnesium hydroxide-simethicone (MYLANTA-DS) 400-400-40 mg/5 mL suspension 15 mL (COMPLETED)Jump to med 15 mL, oral, NOW X1, 1 dose, On Tue12/13/22 at 1845, STAT documented in this encounter Orders Medications Ordered That Stan ht Not Have Been Administered Count Last Ordered Date First Ordered Date lidocaine (XYLOCAINE) 2 % vi scous solution 15 mL 1 12/13/2022 documented in this encounter Care Teams Carbide Operator Relationship Specialty Start Date End Date Carrington Calderon MD 1 [facility] [address] [place] [phone] PCP - General Internal Medicine - Primary Care 12/09/20 documented as of this encounter
--- OUTSIDE RECORDS SUMMARY | 2023-12-16 00:33 | XMS_ITS | Encounter Summary ---
Author Organization [facility] Address [address] [place] [address] Care Team Providers Care Steamer Tender Name Role Phone Carrington Calderon MD Primary Care Provi anders Reason for Visit * Reason Onset Date Comments Medications Refill 03/16/2023 Encounter Details Date Type Department Care Team (Late st Contact Info) Description 03/16/[address] [facility] Adult Primary Care [address] [id number] Carrington Calderon MD 1 [facility] [address] [place] [phone] Medications Refill Social History Tobacco Use Types [...] slept in a fdc (including now)? No 11/17/2022 Interpersonal Safety Answer [...] Telephone Encounter - Eryn Pack RN - 03/16/2023 0946 EDT omeprazole (PRILOSEC) 20 mg capsule [[id number]] ?? Order Details Dose: 20 mg Route: oral Frequency: DAILY Dispense Quantity: 90 Capsule Refills: 3 ?? Sig: Take 1 Capsule by mouth daily. ?? Start Date: 12/17/22 End Date: -- Written Date: 12/17/22 ondansetron (ZOFRAN-ODT) 4 mg disintegrating tablet [[id number]] ?? Order Details Dose: 4 mg Route: oral Frequency: EVERY 8 HOURS PRN for Nausea Dispense Quantity: 30 Tablet Refills: 11 ?? Sig: Take 1 Tablet by mouth every 8 hours as needed for Nausea. ?? Start Date: 11/17/22 End Date: -- Written Date: 11/17/22 Expiration Date: -- ?? insulin glargine (LANTUS SOLOSTAR/SEMGLEE) 100 unit/mL (3 mL) injection pen [[id number]] ?? Order Details Dose: 40 Units Route: subcutaneous Frequency: AT BEDTIME Dispense Quantity: 36 mL Refills: 4 ?? Sig: Inject 40 Units into the skin at bedtime. ?? Start Date: 11/17/22 End Date: -- Written Date: 11/17/22 LORazepam (ATIVAN) 0.5 mg tablet [[id number]] ?? Order Details Dose: 0.5 mg Route: oral Frequency: DAILY PRN for Anxiety Dispense Quantity: 30 Tablet Refills: 3 ?? Sig: Take 1 Tablet by mouth daily as needed for Anxiety. ??Daily Max: 0.5 mg ?? Start Date: 11/17/22 End Date: -- Written Date: 11/17/22 Expiration Date: 05/16/23 ?? * Telephone Encounter - Eryn Pack RN - 03/16/2023 0945 EDTFrom: Cristy Luo To: Office of Carrington Calderon MD Sent: 03/16/2023 9:35 EDT Subject: Medication Renewal Request Refills have been requested for the following medications: LORazepam (ATIVAN) 0.5 mg tablet [Carrington Calderon] insulin glargine (LANTUS SOLOSTAR/SEMGLEE) 100 unit/mL (3 mL) injection pen [Carrington Calderon] ondansetron (ZOFRAN-ODT) 4 mg disint egrating tablet [Carrington Calderon] omeprazole (PRILOSEC) 20 mg capsule [Carrington Calderon] Preferred pharmacy: [facility] [address] [place] [address] documented in this encounter Plan of Treatment Upcoming Encounters Date Type Department Care Team (Late st Contact Info) Description 02/21/2024 9:45 EDT Office Visit [facility] Adult Primary Care - [address] [phone] Carrington Calderon MD [address] [place] [phone] 02/27/2024 8:30 EDT Telemedicine [facility] Sleep Program - [address] [phone] Rn, Sleep 02/29/2024 10:30 EDT Appointment [facility] Radiology Nuclear Medicine and PET - [address] [id number] 02/29/2024 14:30 EDT Appointment [facility] Radiology Nuclear Medicine and PET - [address] [id number] 03/01/2024 8:00 EDT Appointment [facility] Radiology Nuclear Medicine and PET - [address] [id number] 03/01/2024 9:30 EDT Appointment [facility] Radiology Nuclear Medicine and PET - [address] [id number] documented as of this encounter Visit Diagnoses Diagnosis Anxiety Anxiety state, unspecified Type 2 diabetes mellitus with diabetic polyneuropathy, with long-term current use of insulin ([facility]) Gastroparesis documented in this encounter Care Teams Steamer Tender Relationship Specialty Start Date End Date Carrington Calderon MD 1 [facility] [address] [place] [phone] PCP - General Internal Medicine - Primary Care 12/09/20 documented as of this encounter
--- OUTSIDE RECORDS SUMMARY | 2023-12-16 00:33 | XMS_ITS | Encounter Summary ---
Author Organization [facility] Address [address] [place] [address] Care Team Providers Care House Piping Inspector Name Role Phone Carrington Calderon MD Primary Care Provi anders Reason for Referral * Consult (Routine/Next Available) - Closed Specialty Diagnoses / Procedures Referred By Kit goode Referred To Contact Diagnoses Cyclical vomiting Carrington Calderon MD [address] [place] [phone] Mallorie Martinez MD [address] [place] [phone] Referral ID Status Reason Start Date Expiration Date V isits Requested Visits Authorized [id number] Closed Specialty Services Required 03/16/2023 1 1 Question Answer Reason for Request: cyclic menstrual vomiting- LARC with suppression of menses Practice Site (External Referral Only[facility] Reason for Visit * Reason Comments Follow-up Diabetes Encounter Details Date Type Department Care Team ([facility] st Contact Info) Description 03/16/2023 10:15 EDT Telemedicine [facility] Adult Primary Care - [address] [address] Carrington Calderon MD [address] [phone] Cyclical vomiting (Primary Dx); Anxiety and depression; Type 2 diabetes mellitus with diabetic polyneuropathy, with long-term current use of insulin ([facility]) (HCC); Night sweats; Lymphocytosis; Abnormal TSH Social History Tobacco Use Types Packs/Day Years [...] place to sleep or slept in a assisted (including now)? No 11/17/2022 Interpersonal Safety Answer [...] Refills Start Date End Da te Blood-Glucose Sensor (DEXCOM G6 SENSOR) deviceIndications:Type 2 diabetes mellitus with diabetic polyneuropathy, with long-term current use of insulin (HCC-CMS) Inject 1 Each into the skin every 10 days. 9 Each 4 03/16/2023 Blood-Glucose Transmitter (DEXCOM G6 TRANSMITTER) deviceIndications:Type 2 diabetes mellitus with diabetic polyneuropathy, with long-term current use of insulin (HCC-CMS) Inject 1 Each into the skin every 3 months. 1 Each 4 03/16/2023 07/06/2023 documented in this encounter Progress Notes * Jose Luis Wilson - 03/16/2023 1015 EDT The concept of ???Telemedicine?? has been [...] for copays, deductible or coinsurance for this service. TELEMEDICINE VIDEO VISIT Today's visit was provided through telemedicine video conferencing: I have reviewed the appropriateness of using video technology with the patient with regards to today's visit. The location of the patient : Home Patient location state: Visit Location State: [place] The location of the provider: Office Provider location state: Visit Location State: [place] The following people and their roles were present for today's visit: Appointment Provider: Carrington Calderon MD Sopheab Miles * Carrington Calderon MD - 03/16/2023 1015 EDT Primary Care Video Visit Assessment & Plan Diagnoses and all orders for this visit: Cyclical vomiting: Continues to be symptomatic with menses despite trial of migraine abortive therapy. I suggested we consider suppressing menses. She has had Depo Provera shots in the past, though this preceded her development of the cyclic vomiting symptoms. I discussed options such as resuming Depo-Provera, LNG IUD placement, suppressive oral contraceptive. She prefers the mirena IUD. Anxiety and depression: Appears to have a number of life stressors. She expresses interest in doingtherapy. We can discuss in the next visit whether she has made any progress with connecting with a therapist. Type 2 diabetes mellitus with diabetic polyneuropathy, with long-term current use of insulin ([facility]) ([facility]): Stella is in need of new Dexcom supplies. I sent a prescription to her pharmacy. I will alsosend her an invite through [email or web address] so that I am able to review her numbers online. Night sweats: Broad differential including perimenopause, thyroid disease, systemic illness. RecentCBC with significant lymphocytosis, also smudge cells noted. This is somewhat concerning. Will add on a peripheral smear. Unfortunately flow cytometry cannot be added to the sample that was collected. I will have Stella come in for another blood sample. Thyroid cascade added onto her sample. An exam would be very helpful. I suggested lose get in the next 4 weeks or so for a physical. Lymphocytosis Return for 4-6 weeks, physical, 30 min ok, same day ok. Patient education was direct. Barriers were assessed and addressed as needed. Alejandrina Douglas is a 37 y.o. female presenting with Follow-up and Diabetes HPI Last visit with me was in December. At the time I suggested trial of zolmitriptan for treatment of possible abdominal migraine vs cyclic vomiting syndrome. She reports today that the zolmitriptan was effective in treating migraine/headache symptoms, but that it did not have any impact on the nausea/vomiting. She continues to get these symptoms cyclically with her menses. She continues to have regular menses within a day or two, lasting 2-3 days at a time, heavier bleeding with more intense cramping, but shorter duration than in the past. She Stella reports that she has been having drenching night sweats for the last month or so. She denies chills, cough, fatigue. Symptoms occur 3-4 nights/week. She is also getting some hot flashes during the day lately, with a background of cold intolerance historically. She notes FH of early menopause- mother starting age 35. She notes some changes with her mood recently. She feels more irritable, feeling more sad lately. She notes that she usually feels more blue as the days shorten this time of year, but does not recallbeing quite so irritable. She notes some challenges in the home. She has 2 adopted children who have been living with her for the last 5-6 years. She also has a stepdaughter who she has raised public information relations manager since age 4. All 3 children have had biological parents increasingly attempting to play a role in their lives recently. The children also have challenging behaviors and conditions, including autism and some mental health problems not discussed in greater detail today. Data reviewed this visit: problem list/past medical history, current medications and allergies ROS - See HPI TELEMEDICINE VIDEO VISIT Today's visit was provided through telemedicine video conferencing: The location of the patient : Home The location of the provider: Office The following staff and their role did participate in today's encounter visit: Carrington Calderon MD Objective There were no vitals taken for this visit. Physical Exam documented in this encounter Miscellaneous Notes * Result Encounter Note - Carrington Calderon MD - 03/16/2023 1015 EDT Stella, All of the follow up testing looked mostly good here. The testing to follow up on the elevated lymph cells was normal, which is great news. The thyroid test (TSH) is very mildly abnormal. I think we should repeat this in around 2-3 months. With the result only being mildly off, I think it's unlikely related to your sweats. Let me know if you have any questions/concerns. Enzo * Addendum Note - Carrington Calderon MD - 03/16/2023 1015 EDTAddended by: CARRINGTON CALDERON on: 03/18/2023 16:07 Modules accepted: Orders documented in this encounter Plan of Treatment Upcoming Encounters Date Type Department Care Team (Late st Contact Info) Description 02/21/2024 9:45 EDT Office Visit [facility] Adult Primary Care - [address] [phone] Carrington Calderon MD [address] [place] [phone] 02/27/2024 8:30 EDT Telemedicine [facility] Sleep Program - [address] [id number] Rn, Sleep 02/29/2024 10:30 EDT Appointment [facility] Radiology Nuclear Medicine and PET - [address] [phone] 15 02/29/2024 14:30 EDT Appointment [facility] Radiology Nuclear Medicine and PET [address] [address] 03/01/2024 8:00 EDT Appointment [facility] Radiology Nuclear Medicine and PET [address] [phone] 03/01/2024 9:30 EDT Appointment [facility] Radiology Nuclear Medicine and PET [address] [address] Scheduled Referrals Name Type Priority Associated Diagnoses Order Schedule AMB CONS/FOLLOW UP GYNECOLOGY Outpatient Referral Routine/Next Available Cyclical vomiting Expected: 03/23/2023 (Approximate), Expires: 03/16/2024 documented as of this encounter Procedures Procedure Name Priority Date/Time Associated Diagnosis Comments THYROID CASCADE Add-On 03/14/2023 15:19 EDT Night sweats T3, TOTAL Today 03/14/2023 15:19 EDT Night sweats T4 FREE Today 03/14/2023 15:19 EDT Night sweats documented in this encounter Results * (ABNORMAL) COMPLETE BLOOD COUNT AND DIFFERENTIAL (03/17/2023 13:52 EDT) WBC 16.01(H) 4.00 - 12.40 K/cmm 03/17/2023 14:47 EDT [facility] RBC 4.25 3.86 - 5.04 M/cmm 03/17/2023 14:47 EDT [facility] Hemoglobin 13.8 11.6 - 15.2 g/dL 03/17/2023 14:47 T [facility] HCT 39.0 34.9 - 44.4 % 03/17/2023 14:47 T [facility] MCV 92 81 - 98 fL 03/17/2023 14:47 EDT [facility] MCH 32.5 26.7 - 33.3 pg 03/17/2023 14:47 [facility] MCHC 35.4 32.1 - 35.9 g/dL 03/17/2023 14:47 [facility] RDW-CV 12.7 <14.7 % 03/17/2023 14:47 [facility] RDW-SD 42.2 <50.4 fl 03/17/2023 14:47 [facility] PLT 435(H) 141 - 377 K/cmm 03/17/2023 14:47 [facility] MPV 9.5 9.5 - 12.7 fL 03/17/2023 14:47 [facility] % Neutrophils 44.3 % 03/17/2023 14:47 [facility] % Lymphocytes 44.1 % 03/17/2023 14:47 [facility] % Monocytes 7.4 % 03/17/2023 14:47 [facility] % Eosinophils 3.3 % 03/17/2023 14:47 [facility] % Basophils 0.6 % 03/17/2023 14:47 [facility] % Immature Grans 0.3 % 03/17/20 14:47 [facility] Absolute Neutrophils 7.09 2.20 - 8.85 K/cmm 03/17/2023 14:47 [facility] Absolute Lymphocytes 7.06(H) 1.09 - 3.30 K/cmm 03/17/2023 14:47 [facility] Absolute Monocytes 1.19(H) 0.10 - 0.80 K/cmm 03/17/2023 14:47 [facility] Absolute Eosinophils 0.53 0.03 - 0.61 K/cmm 03/17/2023 14:47 [facility] ABS Basophils 0.09 0.01 - 0.11 K/cmm 03/17/2023 14:47 [facility] Absolute Immature Grans 0.05 0.00 - 0.06 K/cmm 03/17/2023 14:47 [facility] Type of Differential: Auto 03/17/2023 14:47 [facility] Blood VENOUS BLOOD / Unknown Venipuncture / Unknown 03/17/2023 13:52 EDT 03/17/2023 13:52 EDT Carrington Calderon MD PACKAGES & DNA PROBE ORDERABLES [facility] [address] [place] [address] * LEUKEMIA/LYMPHOMA PANEL BY FLOW CYTOMETRY (03/17/2023 13:52 EDT) Final Immunophenotypic Interpretation Peripheral blood, flow cytometric analysis: - No immunophenotypic evidence of a clonal cell population. See comment. 12:55 [facility] Comment The results of flow cytometry show no immunophenotypic evidence of involvement by a clonal lymphoproliferative disorder. Correlation of these findings with morphologic and clinical data is essential. 12:55 [facility] Attestation By the signature below, the attending physician certifies that they have 1) personally conducted a gross and/or microscopic examination of the described specimen(s), and/or personally interpreted the results of laboratory testing of the described specimen(s), and 2) personally rendered or confirmed the above diagnosis. 3 12:55 [facility] at 1255 Clinical History night sweats, lymphocytosis, smudge cells 3 12:55 [facility] Description The specimen consists of peripheral blood that has been prepared using ammonium chloride lysing agent. Gating is performed using CD45 fluorescence and side scatter. Cellular viability (assessed by 7-AAD exclusion) is excellent (99%) among cells with CD45 and side scatter properties typical of lymphocytes and excellent (100%) among CD45+ events overall. Scatter plots incorporating all of the markers have been interpreted and evaluated for the presence or absence of abnormal cell populations. Only pertinent abnormal findings are included. If not otherwise addressed all other markers were normal/negative. A majority of the lymphoid cells are T-lymphocytes (CD3+CD5+) with CD4+ and CD8+ subsets represented. The remaining lymphocytes are B-lymphocytes (CD19+CD20+) and NK-cells (CD3-CD16+CD56+). Among the B-cells, both kappa+ and lambda+ subsets are represented. The remainder of the CD45+ events is predominantly of myeloid lineage. There is no increase in blasts. 3 12:55 EDT [facility] Flow Markers CD10, CD117, CD11c, CD16, CD19, CD20, CD3, CD33, CD34, CD38, CD4, CD45, CD5, CD56, CD8, HLA-DR, [place], and Lambda 3 12:55 EDT [facility] FDA Disclaimer This test was developed and its performance characteristics determined by the Department of Pathology and Laboratory Medicine, [facility], [place], [place]. It has not been cleared or approved by the U.S. Food and Drug Administration. FDA does not require this test to go through premarket FDA review. This test is used for clinical purposes. It should not be regarded as investigational or for research. This laboratory is certified under the Clinical Laboratory Improvement Amendments (CLIA) as qualified to perform high complexity clinical laboratory testing. 3 12:55 T [facility] Sample Analyzed Date and Time 03/18/23 at 1106 3 12:55 T [facility] Scanned Images 3 12:55 [facility] Blood VENOUS BLOOD / Unknown Venipuncture / Unknown 03/17/2023 13:52 EDT 03/17/2023 13:52 EDT Carrington Calderon MD PATHOLOGY O RDERABLES [facility] [address] [place] [address] * THYROID-STIMULATING IMMUNOGLOBULIN (TSI), SERUM (03/14/2023 15:19 EDT) Thyroid-Stimulati ng Immunoglobin, S <1.0 <=1.3 TSI index 03/25/2023 15:55 EDT [facility] Anagran Comment: Test Performed by: [facility] [address] [place] [address] Venue Coordinator: Wiley Fry M.D. Ph.D.; CLIA# [id number] Blood VENOUS BLOOD / Unknown Venipuncture / Unknown 03/14/2023 15:19 EDT 03/18/2023 16:07 EDT Carrington Calderon MD CHEMISTRY & BLOOD GAS ORDERABLES [facility] [address] [place] [address] * T3, TOTAL (03/14/2023 15:19 EDT) Pathologist [facility] T3, Total 143 97 - 169 ng/dL 03/16/2023 15:56 EDT [facility] Blood VENOUS BLOOD / Unknown Venipuncture / Unknown 03/14/2023 15:19 EDT 03/14/2023 15:19 EDT Carrington Calderon MD CHEMISTRY & BLOOD GAS ORDERABLES Performing Organization Address City/[facility]/ZIP Co de Phone Number [facility] [address] [place] [address] * T4 FREE (03/14/2023 15:19 EDT) Pathologist [facility] T4, Free 1.3 0.8 - 2.2 ng/dL 03/16/2023 14:42 EDT [facility] Blood VENOUS BLOOD / Unknown Venipuncture / Unknown 03/14/2023 15:19 EDT 03/14/2023 15:19 EDT Carrington Calderon MD CHEMISTRY & BLOOD GAS ORDERABLES [facility] [address] [place] [address] * (ABNORMAL) THYROID CASCADE (03/14/2023 15:19 EDT) Pathologist [facility] TSH 0.44(L) 0.47 - 4.68 mIU/L 03/16/2023 14:03 EDT [facility] Comment:Turbid sample identi fied, interpret with caution as turbidity may affect result. Blood VENOUS BLOOD / Unknown Venipuncture / Unknown 03/14/2023 15:19 EDT 03/14/2023 15:19 EDT Narrative [facility] - 03/16/2023 14:03 EDT NOTE: The results of this assay can be falsely lowered due to the consumption of Biotin. Carrington Calderon MD CHEMISTRY & BLOOD GAS ORDERABLES [facility] [address] [place] [address] documented in this encounter Visit Diagnoses Diagnosis Cyclical vomiting- Primary Persistent vomiting Anxiety and depression Dysthymic disorder Type 2 diabetes mellitus with diabetic polyneuropathy, with long-term current use of insulin ([facility]) (HCC) Night sweats Generalized hyperhidrosis Lymphocytosis Lymphocytosis (symptomatic) Abnormal TSH Other abnormal clinical finding documented in this encounter Discontinued Medications Medication Sig Discontinue Reason Start Date End Da te nystatin (MYCOSTATIN) creamIndications:Skin infection Apply to area under abdominal/groin skin twice daily 12/21/2021 03/16/2023 nystatin (MYCOSTATIN) powder Apply topically to affected area 2 times daily as needed (rash). 09/02/2022 03/16/2023 lancets One Touch Delica or other brand compatible with lancing device and covered by patient's insurance. 10/01/2020 03/16/2023 lancets Brand: Freestyle, use as directed if Freestyle Vignesh censor isnt working 10/06/2020 03/16/2023 insulin pen needles 31G x 5/16Indications:Type 2 diabetes mellitus with hyperglycemia, with long-term current use of insulin ([facility]) Use 1 pen needle as directed 4 times daily. 09/02/2020 03/16/2023 documented as of this encounter Care Teams House Piping Inspector Relationship Specialty Start Date End Date Carrington Calderon MD 1 [facility] [address] [place] [phone] PCP - General Internal Medicine - Primary Care 12/09/20 documented as of this encounter
--- OUTSIDE RECORDS SUMMARY | 2023-12-16 00:33 | XMS_ITS | Encounter Summary ---
Author Organization [facility] Address [address] [place] [address] Care Team Providers Care Eye Glass Frame Polisher Name Role Phone Carrington Calderon MD Primary Care Provi anders Encounter Details Date Type Department Care Team (Late st Contact Info) Description 03/14/2023 15:15 EDT Phlebotomy Only [facility] Laboratory Services - [address] [address] Supervising Film [facility] Type 2 diabetes mellitus with diabetic polyneuropathy, with long-term current use of insulin ([facility]); Night sweats; Lymphocytosis Social History Tobacco Use Types Packs/Day Years [...] Info) Description 02/21/2024 9:45 EDT Office Visit [facility] Adult Primary Care - [address] [phone] Carrington Calderon MD [address] [phone] 02/27/2024 8:30 EDT Telemedicine [facility] Sleep Program - [address] [phone] Rn, Sleep 02/29/2024 10:30 EDT Appointment [facility] Radiology Nuclear Medicine and PET [address] [phone] 02/29/2024 14:30 EDT Appointment [facility] Radiology Nuclear Medicine and PET [address] [phone] 03/01/2024 8:00 EDT Appointment [facility] Radiology Nuclear Medicine and [address] [phone] 03/01/2024 9:30 EDT Appointment [facility] Radiology Nuclear Medicine and PET [address] [phone] documented as of this encounter Procedures Procedure Name Priority Date/Time Associated Diagnosis Comments PATH REVIEW - HEMATOLOGY Routine 03/14/2023 15:19 EDT Night sweats Lymphocytosis DIFFERENTIAL, AUTOMATED MANUAL Today 03/14/2023 15:19 EDT Type 2 diabetes mellitus with diabetic polyneuropathy, with long-term current use of insulin ([facility]) SLIDE REQUEST Routine 03/14/2023 15:19 EDT Night sweats Lymphocytosis COMPLETE BLOOD COUNT AND DIFFERENTIAL Routine 03/14/2023 15:19 EDT Type 2 diabetes mellitus with diabetic polyneuropathy, with long-term current use of insulin ([facility]) HEMOGLOBIN A1C Routine 03/14/2023 15:19 EDT Type 2 diabetes mellitus with diabetic polyneuropathy, with long-term current use of insulin ([facility]) BASIC METABOLIC PANEL (BMP) Routine 03/14/2023 15:19 EDT Type 2 diabetes mellitus with diabetic polyneuropathy, with long-term current use of insulin ([facility]) documented in this encounter Results * PATH REVIEW - HEMATOLOGY PERFORMABLE (03/14/2023 15:19 EDT) Pathologist Review Comment RBCs: Normocytic normochromic red blood cells without anemia. ??There are no circulating nucleated red cells. ??There is no significant polychromasia. WBCs: There is an absolute lymphocytosis. ??The lymphocytes otherwise appear unremarkable with occasional reactive forms and large granular forms noted. ??There is no significant increase in smudge cells. ??There is no increase circulating blasts or circulating plasma cells noted. ??Hypersegmented neutrophils are not seen. Platelets: There is mild thrombocytosis. ??The platelets are otherwise unremarkable morphologically with occasional large and giant forms noted. 03/16/2023 12:25 EDT [facility] Blood VENOUS BLOOD / Unknown Venipuncture / Unknown 03/14/2023 15:19 EDT 03/16/2023 11:05 EDT Narrative [facility] - 03/16/2023 12:25 EDT -Absolute lymphocytosis with reactive forms. -Mild Thrombocytosis. Comment: Both lymphocytosis and thrombocytosis may be seen in reactive conditions (secondary to infections or inflammation etc.) however if sustained (> 3 months) then consideration of lymphoproliferative disorder or myeloproliferative disorder may be entertained with appropriate further investigations. ??Flow cytometry may be appropriate to rule out clonal disorders. Please consider longitudinal follow-up of this patient. Carrington Calderon MD HEMATOLOGY & PF4 ORDERABLES [facility] [address] [place] [address] * (ABNORMAL) DIFFERENTIAL, AUTOMATED MANUAL (03/14/2023 15:19 EDT) % Neutrophils 48.7 % 03/14/2023 17:23 [facility] % Lymphocytes 44.3 % 03/14/2023 17:23 [facility] % Monocytes 4.4 % 03/14/2023 17:23 [facility] % Eosinophils 1.7 % 03/14/2023 17:23 [facility] % Basophils 0.9 % 03/14/2023 17:23 [facility] Absolute Neutrophils 8.80 2.20 - 8.85 K/cmm 03/14/2023 17:23 [facility] Absolute Lymphocytes 8.01(H) 1.09 - 3.30 K/cmm 03/14/2023 17:23 [facility] Absolute Monocytes 0.80 0.10 - 0.80 K/cmm 03/14/2023 17:23 [facility] Absolute Eosinophils 0.31 0.03 - 0.61 K/cmm 03/14/2023 17:23 [facility] ABS Basophils 0.16(H) 0.01 - 0.11 K/cmm 03/14/2023 17:23 [facility] Smudge Cells 03/14/2023 17:23 [facility] Comment:present Type of Differential: Manual 03/14/2023 17:23 [facility] Blood VENOUS BLOOD / Unknown Venipuncture / Unknown 03/14/2023 15:19 EDT 03/14/2023 15:19 EDT Carrington Calderon MD HEMATOLOGY & PF4 ORDERABLES [facility] [address] [place] [address] * (ABNORMAL) COMPLETE BLOOD COUNT AND DIFFERENTIAL (03/14/2023 15:19 EDT) WBC 18.08(H) 4.00 - 12.40 K/cmm 03/14/2023 16:23 [facility] RBC 4.40 3.86 - 5.04 M/cmm 03/14/2023 16:23 [facility] Hemoglobin 14.0 11.6 - 15.2 g/dL 03/14/2023 16:23 [facility] HCT 40.6 34.9 - 44.4 % 03/14/2023 16:23 [facility] MCV 92 81 - 98 fL 03/14/2023 16:23 [facility] MCH 31.8 26.7 - 33.3 pg 03/14/2023 16:23 [facility] MCHC 34.5 32.1 - 35.9 g/dL 03/14/2023 16:23 [facility] RDW-CV 12.6 <14.7 % 03/14/2023 16:23 [facility] RDW-SD 42.6 <50.4 fl 03/14/2023 16:23 [facility] PLT 412(H) 141 - 377 K/cmm 03/14/2023 16:23 [facility] MPV 9.3(L) 9.5 - 12.7 fL 03/14/2023 16:23 [facility] Blood VENOUS BLOOD / Unknown Venipuncture / Unknown 03/14/2023 15:19 EDT 03/14/2023 15:19 EDT Carrington Calderon MD PACKAGES & DNA PROBE ORDERABLES [facility] [address] [place] [address] * (ABNORMAL) HEMOGLOBIN A1C (03/14/2023 15:19 EDT) Pathologist [facility] Hemoglobin A1c 8.3(H) <5.7 % 03/14/2023 22:02 [facility] Comment: Glycemic Status References: Normal: ??<5.7% Pre-Diabetes: ??5.7% - 6.4% Diagnostic of Diabetes: ??> or = 6.5% (if confirmed) Est Avg Glucose 192 mg/dL 22:02 [facility] Comment:The eAG represents t he A1c result expressed as average glucose in mg/dL. Blood VENOUS BLOOD / Unknown Venipuncture / Unknown 03/14/2023 15:19 EDT 03/14/2023 15:19 EDT Carrington Calderon MD CHEMISTRY & BLOOD GAS ORDERABLES Performing Organization Address City/State/[facility] Co de Phone Number [facility] [address] [place] [address] * (ABNORMAL) BASIC METABOLIC PANEL (BMP) (03/14/2023 15:19 EDT) [facility] Sodium 142 136 - 145 mmol/L 03/14/2023 16:50 [facility] Potassium 4.2 3.5 - 5.0 mmol/L 03/14/2023 16:50 [facility] Chloride 103 96 - 110 mmol/L 03/14/2023 16:50 [facility] CO2 Total 25 22 - 32 mmol/L 03/14/2023 16:50 [facility] Anion Gap 14 5 - 14 mmol/L 03/14/2023 16:50 [facility] Glucose 45(LL) 70 - 99 mg/dl 03/14/2023 16:50 [facility] Calcium 9.9 8.5 - 10.5 mg/dL 03/14/2023 16:50 [facility] BUN 11 10 - 26 mg/dL 03/14/2023 16:50 [facility] Creatinine 0.99 0.52 - 1.04 mg/dL 03/14/2023 16:50 EDT [facility] eGFR 75 >60 mL/min/1.73 m2 03/14/2023 16:50 EDT [facility] Blood VENOUS BLOOD / Unknown Venipuncture / Unknown 03/14/2023 15:19 EDT 03/14/2023 15:19 EDT Carrington Calderon MD CHEMISTRY & BLOOD GAS ORDERABLES [facility] [address] [place] [address] documented in this encounter Visit Diagnoses Diagnosis Type 2 diabetes mellitus with diabetic polyneuropathy, with long-term current use of insulin ([facility]) Night sweats Generalized hyperhidrosis Lymphocytosis Lymphocytosis (symptomatic) documented in this encounter Care Teams Eye Glass Frame Polisher Relationship Specialty Start Date End Date Carrington Calderon MD 1 [facility] [address] [place] [phone] PCP - General Internal Medicine - Primary Care 12/09/20 documented as of this encounter
--- OUTSIDE RECORDS SUMMARY | 2023-12-16 00:33 | XMS_ITS | Encounter Summary ---
Author Organization [facility] Address [address] [place] [address] Care Team Providers Care Automotive Engineering Technician Name Role Phone Carrington Calderon MD Primary Care Provi anders Abigail Díaz Unavailable Carmelo Hendrickson Unavailable Unavailable Reason for Visit * Reason Comments Medications Refill Encounter Details Date Type Department Care Team (Late st Contact Info) Description 03/31/2023 Refill [facility] Adult Primary Care - [address] [address] Carrington Calderon MD [address] [phone] Medications Refill Social History Tobacco Use Types [...] place to sleep or slept in a fpc (including now)? No 11/17/2022 Interpersonal Safety Answer [...] Dispensed Refills Start Date End Da te NOVOLOG FLEXPEN U-100 INSULIN 100 unit/mL (3 mL) injectable penIndications:Type 2 diabetes mellitus with diabetic polyneuropathy, with long-term current use of insulin ([facility]) INJECT 12 UNITS THREE TIMES DAILY WITH MEALS 30 mL 1 04/01/2023 04/04/2023 documented in this encounter Miscellaneous Notes * Telephone Encounter - Joss Washington RN - 04/01/2023 1032 EDT Requested Prescriptions Pending Prescriptions Disp Refills ??? NOVOLOG FLEXPEN U-100 INSULIN 100 unit/mL (3 mL) injectable pen [Pharmacy Med Name: NovoLOG FlexPen ReliOn 100 UNIT/ML Subcutaneous Solution Pen-injector] 30 mL 0 Sig: INJECT 12 UNITS THREE TIMES DAILY WITH MEALS [facility] [address] [place] [address] Confirmed Pharmacy? Yes Patient out of medication? Unknown How many pills does patient have left? unknown Last Refill Date: 11/18/22 Refills left? (explain exceptions requiring early refill) No Recent Visits Date Type Provider Dept 11/17/22 Office Visit Carrington Calderon MD [facility] Adult Prim Care 09/02/22 Office Visit Nimisha Clifton NP [facility] Adult Prim Care 05/20/22 Office Visit Rachel Stein PA-C [facility] Adult Prim Care Showing recent visits within past 540 days with a meds authorizing provider and meeting all other requirements Future Appointments Date Type Provider Dept 06/27/23 Appointment Carrington Calderon MD [facility] Adult Prim Care Showing future appointments within next 150 days with a meds authorizing provider and meeting all other requirements Future appointment: Already Scheduled JOSS WASHINGTON RN 04/01/2023 10:34 documented in this encounter Plan of Treatment Upcoming Encounters Date Type Department Care Team (Late st Contact Info) Description 02/21/2024 9:45 EDT Office Visit [facility] Adult Primary Care - [address] [phone] Carrington Calderon MD [address] [place] [phone] 02/27/2024 8:30 EDT Telemedicine [facility] Sleep Program - [address] [phone] Rn, Sleep 02/29/2024 10:30 EDT Appointment [facility] Radiology Nuclear Medicine and PET - [address] [phone] 02/29/2024 14:30 EDT Appointment [facility] Radiology Nuclear Medicine and PET [address] [phone] 03/01/2024 8:00 EDT Appointment [facility] Radiology Nuclear Medicine and PET [address] [phone] 03/01/2024 9:30 EDT Appointment [facility] Radiology Nuclear Medicine and PET [address] [phone] documented as of this encounter Visit Diagnoses Diagnosis Type 2 diabetes mellitus with diabetic polyneuropathy, with long-term current use of insulin ([facility]) documented in this encounter Care Teams Automotive Engineering Technician Relationship Specialty Start Date End Date Carrington Calderon MD [address] [place] [address] [phone] PCP - General Internal Medicine - Primary Care 12/09/20 Abigail Díaz Resource Teacher 04/21/23 Carmelo Hendrickson Coordinator 12/01/23 documented as of this encounter
--- OUTSIDE RECORDS SUMMARY | 2023-12-16 00:33 | XMS_ITS | Encounter Summary ---
Author Organization [facility] Address [address] [place] [address] Care Team Providers Care Marine Driller Name Role Phone Carrington Calderon MD Primary Care Provi anders Abigail Díaz Unavailable Carmelo Hendrickson Unavailable Unavailable Reason for Visit * Reason Onset Date Comments Appointment Related 05/04/2023 Encounter Details Date Type Department Care Team (Late st Contact Info) Description 05/04/2023 Telephone [facility] Endocrinology - [facility] [address] [place] [address] Amilcar Ortega MD 62 [facility] [address] [place] [phone] Appointment Related Social History Tobacco Use Types [...] place to sleep or slept in a mcfp (including now)? No 11/17/2022 Interpersonal Safety Answer Date Record ed How often does anyone, inclu chivo family, hit, punch or physically hurt you? Never 11/17/2022 How often does anyone, inclnick chivo family, [...] encounter Miscellaneous Notes * Telephone Encounter - Cherie Infante - 05/04/2023 0823 EST Patient accepted zoom [facility] opening with Dr. Ortega today at 4:00. documented in this encounter Plan of Treatment Upcoming Encounters Date Type Department Care Team (Late st Contact Info) Description 02/21/2024 9:45 EDT Office Visit [facility] Adult Primary Care - [address] [phone] Carrington Calderon MD [address] [place] [address] [phone] 02/27/2024 8:30 EDT Telemedicine [facility] Sleep Program - [address] [phone] Rn, Sleep 02/29/2024 10:30 EDT Appointment [facility] Radiology Nuclear Medicine and PET - [address] [address] 02/29/2024 14:30 EDT Appointment [facility] Radiology Nuclear Medicine and PET - [address] [phone] 03/01/2024 8:00 EDT Appointment [facility] Radiology Nuclear Medicine and PET - [address] [phone] 03/01/2024 9:30 EDT Appointment [facility] Radiology Nuclear Medicine and PET - [address] [address] documented as of this encounter Visit Diagnoses Not on filedocumented in this encounter Care Teams Marine Driller Relationship Specialty Start Date End Date Carrington Calderon MD 1 [facility] [address] [place] [phone] PCP - General Internal Medicine - Primary Care 12/09/20 Abigail Díaz Tin Pourer 04/21/23 Carmelo Hendrickson Coordinator 12/01/23 documented as of this encounter
--- OUTSIDE RECORDS SUMMARY | 2023-12-16 00:33 | XMS_ITS | Encounter Summary ---
Author Organization [facility] Address [address] [place] [address] Care Team Providers Care Waste Treatment Operator Name Role Phone Carrington Calderon MD Primary Care Provi anders Encounter Details Date Type Department Care Team (Late st Contact Info) Description 03/17/2023 13:45 EDT Phlebotomy Only [facility] Laboratory Services - [address] [address] [facility] Night sweats; Lymphocytosis Social History Tobacco Use [...] in a long term (including now)? No 11/17/2022 Interpersonal Safety Answer [...] 02/21/2024 9:45 EDT Office Visit [facility] Adult Primary Care - [address] [phone] Carrington Calderon MD [address] [phone] 02/27/2024 8:30 EDT Telemedicine [facility] Sleep Program - [address] [phone] Rn, Sleep 02/29/2024 10:30 EDT Appointment [facility] Radiology Nuclear Medicine and PET [address] [phone] 02/29/2024 14:30 EDT Appointment [facility] Radiology Nuclear Medicine and PET [address] [phone] 03/01/2024 8:00 EDT Appointment [facility] Radiology Nuclear Medicine and PET [address] [phone] 03/01/2024 9:30 EDT Appointment [facility] Radiology Nuclear Medicine and PET [address] [phone] documented as of this encounter Procedures Procedure Name Priority Date/Time Associated Diagnosis Comments LEUKEMIA/LYMPHOMA PANEL BY FLOW CYTOMETRY Routine 03/17/2023 13:52 EDT Night sweats Lymphocytosis COMPLETE BLOOD COUNT AND DIFFERENTIAL Routine 03/17/2023 13:52 EDT Night sweats Lymphocytosis documented in this encounter Results * (ABNORMAL) COMPLETE BLOOD COUNT AND DIFFERENTIAL (03/17/2023 13:52 EDT) WBC 16.01(H) 4.00 - 12.40 K/cmm 03/17/2023 14:47 [facility] RBC 4.25 3.86 - 5.04 M/cmm 03/17/2023 14:47 [facility] Hemoglobin 13.8 11.6 - 15.2 g/dL 03/17/2023 14:47 [facility] HCT 39.0 34.9 - 44.4 % 03/17/2023 14:47 [facility] MCV 92 81 - 98 fL 03/17/2023 14:47 [facility] MCH 32.5 26.7 - 33.3 pg 03/17/2023 14:47 [facility] MCHC 35.4 32.1 - 35.9 g/dL 03/17/2023 14:47 [facility] RDW-CV 12.7 <14.7 % 03/17/2023 14:47 [facility] RDW-SD 42.2 <50.4 fl 03/17/2023 14:47 [facility] PLT 435(H) 141 - 377 K/cmm 03/17/2023 14:47 [facility] MPV 9.5 9.5 - 12.7 fL 03/17/2023 14:47 [facility] % Neutrophils 44.3 % 03/17/2023 14:47 [facility] % Lymphocytes 44.1 % 03/17/2023 14:47 [facility] % Monocytes 7.4 % 03/17/2023 14:47 [facility] % Eosinophils 3.3 % 03/17/2023 14:47 [facility] % Basophils 0.6 % 03/17/2023 14:47 [facility] % Immature Grans 0.3 % 03/17/20 14:47 [facility] Absolute Neutrophils 7.09 2.20 - 8.85 K/cmm 03/17/2023 14:47 [facility] Absolute Lymphocytes 7.06(H) 1.09 - 3.30 K/cmm 03/17/2023 14:47 [facility] Absolute Monocytes 1.19(H) 0.10 - 0.80 K/cmm 03/17/2023 14:47 [facility] Absolute Eosinophils 0.53 0.03 - 0.61 K/cmm 03/17/2023 14:47 [facility] ABS Basophils 0.09 0.01 - 0.11 K/cmm 03/17/2023 14:47 [facility] Absolute Immature Grans 0.05 0.00 - 0.06 K/cmm 03/17/2023 14:47 [facility] Type of Differential: Auto 03/17/2023 14:47 [facility] Blood VENOUS BLOOD / Unknown Venipuncture / Unknown 03/17/2023 13:52 EDT 03/17/2023 13:52 EDT Carrington Calderon MD PACKAGES & DNA PROBE ORDERABLES [facility] [address] [place] [address] * LEUKEMIA/LYMPHOMA PANEL BY FLOW CYTOMETRY (03/17/2023 13:52 EDT) Final Immunophenotypic Interpretation Peripheral blood, flow cytometric analysis: - No immunophenotypic evidence of a clonal cell population. See comment. 12:55 [facility] Comment The results of flow cytometry show no immunophenotypic evidence of involvement by a clonal lymphoproliferative disorder. Correlation of these findings with morphologic and clinical data is essential. 3 12:55 [facility] Attestation By the signature below, the attending physician certifies that they have 1) personally conducted a gross and/or microscopic examination of the described specimen(s), and/or personally interpreted the results of laboratory testing of the described specimen(s), and 2) personally rendered or confirmed the above diagnosis. 3 12:55 [facility] at 1255 Clinical History night sweats, lymphocytosis, smudge cells 3 12:55 [facility] Description The specimen consists of [...] is no increase in blasts. 3 12:55 [facility] Flow Markers CD10, CD117, CD11c, CD16, CD19, CD20, CD3, CD33, CD34, CD38, CD4, CD45, CD5, CD56, CD8, HLA-DR, [place], and Lambda 3 12:55 [facility] FDA Disclaimer This test was developed and its performance characteristics determined by the Department of Pathology and Laboratory Medicine, [facility], [place], [place] It has not been cleared or [...] high complexity clinical laboratory testing. 3 12:55 [facility] Sample Analyzed Date and Time 03/18/23 at 1106 3 12:55 [facility] Scanned Images 3 12:55 [facility] Blood VENOUS BLOOD / Unknown Venipuncture / Unknown 03/17/2023 13:52 EDT 03/17/2023 13:52 EDT Carrington Calderon MD PATHOLOGY O RDERABLES [facility] [address] [place] [address] documented in this encounter Visit Diagnoses Diagnosis Night sweats Generalized hyperhidrosis Lymphocytosis Lymphocytosis (symptomatic) documented in this encounter Care Teams Waste Treatment Operator Relationship Specialty Start Date End Date Carrington Calderon MD 1 [facility] [address] [place] [phone] PCP - General Internal Medicine - Primary Care 12/09/20 documented as of this encounter
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
--- OUTSIDE RECORDS SUMMARY | 2023-12-16 00:33 | XMS_ITS | Encounter Summary ---
Author Organization [facility] Address [address] [place] [address] Care Team Providers Care Referral Specialist Name Role Phone Carrington Calderon MD Primary Care Provi anders Abigial Díaz Unavailable Carmelo Hendrickson Unavailable Unavailable Reason for Visit * Reason Comments Medications Refill Encounter Details Date Type Department Care Team (Late st Contact Info) Description 01/04/2023 Refill [facility] Adult Primary Care - [address] [address] Carrington Calderon MD [address] [phone] Medications Refill Social History Tobacco Use Types [...] Dispensed Refills Start Date End Da te traMADol (ULTRAM) 50 mg tabletIndications:Chronic midline low back pain without sciatica TAKE 1 TABLET BY MOUTH EVERY 6 HOURS NEEDED FOR PAIN. DAILY MAX 200MG 30 Tablet 01/06/2023 02/01/2023 documented in this encounter Miscellaneous Notes * Telephone Encounter - Joss Washington RN - 01/05/2023 0804 EDT Requested Prescriptions Pending Prescriptions Disp Refills ??? traMADol (ULTRAM) 50 mg tablet [Pharmacy Med Name: traMADol HCl 50 MG Oral Tablet] 30 Tablet 0 Sig: TAKE 1 TABLET BY MOUTH EVERY 6 HOURS NEEDED FOR PAIN. DAILY MAX 200MG [facility] [address] [place] [address] Confirmed Pharmacy? Yes Patient out of medication? Unknown Last Refill Date: 11/17/22 Refills left? (explain exceptions requiring early refill) No Recent Visits Date Type Provider Dept 11/17/22 Office Visit Carrington Calderon MD [facility] Adult Prim Care 09/02/22 Office Visit Nimisha Clifotn NP [facility] Adult Prim Care 05/20/22 Office Visit Rachel Stein PA-C [facility] Adult Prim Care Showing recent visits within past 540 days with a meds authorizing provider and meeting all other requirements Future Appointments Date Type Provider Dept 03/16/23 Appointment Carrington Calderon MD [facility] Adult Prim Care Showing future appointments within next 150 days with a meds authorizing provider and meeting all other requirements Future appointment: Already Scheduled JOSS WASHINGTON RN 01/05/2023 8:04 documented in this encounter Plan of Treatment Upcoming Encounters Date Type Department Care Team (Late st Contact Info) Description 02/21/2024 9:45 EDT Office Visit [facility] Adult Primary Care - [address] [phone] Carrington Calderon MD [address] [place] [phone] 02/27/2024 8:30 EDT Telemedicine [facility] Sleep Program - [address] [phone] Rn, Sleep 02/29/2024 10:30 EDT Appointment [facility] Radiology Nuclear Medicine and PET [address] [address] 02/29/2024 14:30 EDT Appointment [facility] Radiology Nuclear Medicine and PET [address] [address] 03/01/2024 8:00 EDT Appointment [facility] Radiology Nuclear Medicine and [address] [phone] 03/01/2024 9:30 EDT Appointment [facility] Radiology Nuclear Medicine and [address] [phone] documented as of this encounter Visit Diagnoses Diagnosis Chronic midline low back pain without sciatica documented in this encounter Discontinued Medications Medication Sig Discontinue Reason Start Date End Da te traMADol (ULTRAM) 50 mg tabletIndications:Chroni c midline low back pain without sciatica Take 1 Tablet by mouth every 6 hours as needed for Pain. Daily Max: 200 mg 11/17/2022 01/06/2023 documented as of this encounter Care Teams Referral Specialist Relationship Specialty Start Date End Date Carrington Calderon MD [address] [place] [phone] PCP - General Internal Medicine - Primary Care 12/09/20 Abigail Díaz Heater Mechanic 04/21/23 Carmelo Hendrickson Coordinator 12/01/23 documented as of this encounter
--- OUTSIDE RECORDS SUMMARY | 2023-12-16 00:33 | XMS_ITS | Encounter Summary ---
Author Organization [facility] Address [address] [place] [address] Care Team Providers Care Medical Diagnostic Radiographer Name Role Phone Carrington Calderon MD Primary Care Provi anders Reason for Visit * Reason Comments Medication Management Encounter Details Date Type Department Care Team (Late st Contact Info) Description 12/17/2022 14:45 EDT Telemedicine [facility] Adult Primary Care - [address] [phone] Carrington Calderon MD 1 [facility] Level [address] [place] [phone] Type 2 diabetes mellitus with diabetic polyneuropathy, with long-term current use of insulin ([facility]) (Primary Dx); Anxiety and depression; Gastroparesis; Catamenial disorder; Migraine with aura and without status migrainosus, not intractable; Cyclic vomiting syndrome Social History Tobacco Use Types Packs/Day Years [...] Dispensed Refills Start Date End Da te DULoxetine 40 mg capsule,delayed release(DR/EC)Indicat ions:Anxiety and depression Take 40 mg by mouth daily. 30 Capsule 11 12/17/2022 ZOLMitriptan (ZOMIG) 2.5 mg tabletIndications:Cat amenial disorder,Migraine with aura and without status migrainosus, not intractable,Cyclic vomiting syndrome Take 1 Tablet by mouth 2 times daily. BID starting 2 days prior to onset of menses, continuing for a total of 5 days (10 doses) 10 Tablet 12/17/2022 prochlorperazine (COMPAZINE) 10 mg tabletIndications:Cyc lic vomiting syndrome Take 1 Tablet by mouth every 8 hours as needed for Nausea. 8 Tablet 12/17/2022 prochlorperazine (COMPAZINE) 25 mg suppositoryIndication s:Cyclic vomiting syndrome Place 1 Suppository rectally every 12 hours as needed for Nausea. 6 Suppository 11 12/17/2022 omeprazole (PRILOSEC) 20 mg capsuleIndications:Ga stroparesis Take 1 Capsule by mouth daily. 90 Capsule 3 12/17/2022 documented in this encounter Progress Notes * Carrington Calderon MD - 12/17/2022 4230 EDT Primary Care Video Visit Assessment & Plan Diagnoses and all orders for this visit: Type 2 diabetes mellitus with diabetic polyneuropathy, with long-term current use of insulin ([facility]) ([facility]): No change made today. Will inquire regarding whether she was able to get the Dexcom up and running again in the next visit. Depending on treatment response to cyclic vomiting, a GLP-1 receptor agonist may actually be an option to reconsider for Stella. Anxiety and depression: Stella is happy with her response so far, but would like to see if she has more response to a slightly higher dose. I suggested increasing the duloxetine to 40 mg daily. This is still a relatively low dose. There is an alert for interaction between duloxetine and Compazine/metoclopramide. The potential risk is extraparametal side effects. I recommended that she monitor for any changes such as this, and I am hopeful that at some point we may be able to back off on the metoclopramide. - DULoxetine 40 mg capsule,delayed release(DR/EC) Gastroparesis: Stella has previously been presumed to have gastroparesis based on a gastric emptying study showing delayed gastric emptying, as well as long standing history of diabetes. However, findings of gastric emptying studies are not thought to be particularly reliable, and she now presents some additional history that suggest she may actually have a cyclic vomiting or catamenial migraine disorder. Based on her description today, in fact, there are other features of migraine that accompany her vomiting such as aura and, with this most recent episode, headache. In light of this, I suggested that we treat for catamenial migraine/cyclic vomiting with a preventative medication. She confirmed today that she has history of hives with Advil. In light of this, will avoid NSAIDs. Instead, willtrial zolmitriptan 2.5 mg twice daily starting 2 days prior to menses and continuing for a total of5 days. Reassess next visit. - omeprazole (PRILOSEC) 20 mg capsule Catamenial disorder - ZOLMitriptan (ZOMIG) 2.5 mg tablet Migraine with aura and without status migrainosus, not intractable - ZOLMitriptan (ZOMIG) 2.5 mg tablet Cyclic vomiting syndrome - prochlorperazine (COMPAZINE) 25 mg suppository - prochlorperazine (COMPAZINE) 10 mg tablet - ZOLMitriptan (ZOMIG) 2.5 mg tablet Return in about 12 weeks (around 03/11/2023). Patient education was direct. Barriers were assessed and addressed as needed. Subjective Stella is a 37 y.o. female presenting with Medication Management HPI Last visit with me was in early November. Depression and anxiety symptoms were increased from baseline.Duloxetine initiated. For diabetes, I recommended increasing her Januvia, and increasing mealtime insulin from 0 to 6 units as a sliding scale to 8 units plus the sliding scale. Stella was seen in the ED on 12/13 for nausea/vomiting. Blood work notable for leukocytosis, mild AG elevation, low potassium. Stella reports that she recently became aware that her episodes of nausea and vomiting. She has not typically had headache associated with this but she did have a headache with this most recent episode.She has history of migraine diagnosed in her teens. She has described aura with migraine in the past as shooting stars and notes that she has had similar phenomena when in the midst of a vomiting episodes. Menstrual cycle is 28 days consistently, typically lasting 3 days. Vomiting starts right atthe time of menses onset. Mood is overall described as improved on the duloxetine. She feels mood is much clearer. She continues on metoclopramide TID. She takes compazine much more rarely for more severe symptoms. Data reviewed this visit: problem list/past medical [...] vitals taken for this visit. Physical Exam * Jose Luis Wilson - 12/17/2022 1445 EDT The concept of ???Telemedicine?? has been [...] Home Patient location state: Visit Location State: [place] The location of the provider: Office Provider location state: Visit Location State: [place] The following people and their roles were present for today's visit: Appointment Provider: Carrington Calderon MD Sopheab Miles documented in this encounter Plan of Treatment Upcoming Encounters Date Type Department Care Team (Late st Contact Info) Description 02/21/2024 9:45 EDT Office Visit [facility] Adult Primary Care - [address] [phone] Carrington Calderon MD [address] [place] [phone] 02/27/2024 8:30 EDT Telemedicine [facility] Sleep Program - [address] [address] Rn, Sleep 02/29/2024 10:30 EDT Appointment [facility] Radiology Nuclear Medicine and PET [address] [phone] 02/29/2024 14:30 EDT Appointment [facility] Radiology Nuclear Medicine and PET [address] [address] 03/01/2024 8:00 EDT Appointment [facility] Radiology Nuclear Medicine and PET [address] [address] 03/01/2024 9:30 EDT Appointment [facility] Radiology Nuclear Medicine and PET [address] [phone] documented as of this encounter Visit Diagnoses Diagnosis Type 2 diabetes mellitus with diabetic polyneuropathy, with long-term current use of insulin ([facility])- Primary Anxiety and depression Dysthymic disorder Gastroparesis Catamenial disorder Unspecified disorder of menstruation and other abnormal bleeding from female genital tract Migraine with aura and without status migrainosus, not intractable Migraine with aura, without mention of intractable migraine without mention of status migrainosus Cyclic vomiting syndrome Persistent vomiting documented in this encounter Discontinued Medications Medication Sig Discontinue Reason Start Date End Da prochlorperazine (COMPAZINE) 25 mg suppositoryIndications :Gastroparesis Place 1 Suppository rectally every 12 hours as needed for Nausea. Reorder 12/21/2021 12/17/2022 omeprazole (PRILOSEC) 20 mg capsuleIndications:Gas troparesis Take 1 Capsule by mouth daily. Reorder 11/17/2022 12/17/2022 DULoxetine (CYMBALTA) 20 mg delayed release capsuleIndications:Anx iety and depression Take 1 Capsule by mouth daily. 11/17/2022 12/17/2022 prochlorperazine (COMPAZINE) 10 mg tablet Take 1 Tablet by mouth every 8 hours as needed for Nausea. Reorder 12/13/2022 12/17/2022 documented as of this encounter Care Teams Medical Diagnostic Radiographer Relationship Specialty Start Date End Date Carrington Calderon MD 1 [facility] Level [address] [place] [phone] PCP - General Internal Medicine - Primary Care 12/09/20 documented as of this encounter
--- OUTSIDE RECORDS SUMMARY | 2023-12-16 00:33 | XMS_ITS | Encounter Summary ---
Author Organization [facility] Address [address] [place] [address] Care Team Providers Care Music Engineer Name Role Phone Carrington Calderon MD Primary Care Provi anders Reason for Referral * Referral (Routine/Next Available) - Specialty Report Received Specialty Diagnoses / Procedures [facility] Referred To Contact Multidisciplinary Diagnoses Adjustment reaction with anxiety and depression Carrington Calderon MD [address] [place] [phone] [facility] Community Health Team [address] [facility] [address] [place] [address] Referral ID Status Reason Start Date Expiration Date Visits Requested Visits Authorized [id number] Specialty Report Received Specialty Services Required 3 1 1 Question Answer Reason for Request: community therapist Reason for Visit * Reason Onset Date Comments Referral Request 03/28/2023 Encounter Details Date Type Department Care Team (Late st Contact Info) Description 03/28/2023 Telephone [facility] Adult Primary Care - [address] [phone] Carrington Calderon MD [address] [phone] Referral Request Social History Tobacco Use Types [...] place to sleep or slept in a care home (including now)? No 11/17/2022 Interpersonal Safety [...] Miscellaneous Notes * Telephone Encounter - Eryn Navarrete RN - 03/30/2023 1136 EDT Spoke with patient and confirmed she does intend to locate a community therapist for longer term therapy Reviewed [facility] process/referral Patient agreed with this plan of care and verbalized understanding with no barriers noted. * Telephone Encounter - Carrington Calderon MD - 03/29/2023 1100 EDT According to my most recent discussions with Stella, she was interested in finding a therapist in the community for long-term therapy, rather than the short-term targeted therapy available through our [facility]. With this in mind, I have signed a medical home/care management referral so that she can be connected with a older adult social work specialist to help her through this process. If I am mistaken and she is interested in short-term therapy through this office, happy to sign a [facility] referral. Please double check with her. Thanks. * Telephone Encounter - Eryn Navrarete RN - 03/28/2023 1606 EDT Reviewed 03/16/ notes Pended referral and routed to PCP for review and completion * Telephone Encounter - Misty Barahona - 03/28/2023 1347 EDT Stella is calling requesting a referral for a phychiatrist / counselor. She states it was discussed ather last appointment on 03/16/2023. documented in this encounter Plan of Treatment Upcoming Encounters Date Type Department Care Team (Late st Contact Info) Description 02/21/2024 9:45 EDT Office Visit [facility] Adult Primary Care - [address] [phone] Carrington Calderon MD [address] [phone] 02/27/2024 8:30 EDT Telemedicine [facility] Sleep Program - [address] [address] Rn, Sleep 02/29/2024 10:30 EDT [facility] and PET - [address] [phone] 02/29/2024 14:30 EDT Appointment [facility] Radiology Nuclear Medicine and PET [address] [phone] 03/01/2024 8:00 EDT Appointment [facility] Radiology Nuclear Medicine and PET [address] [phone] 03/01/2024 9:30 EDT Appointment [facility] Radiology Nuclear Medicine and PET - [address] [address] Scheduled Referrals Name Type Priority Associated Diagnoses Order Schedule AMB CONS/FOLLOW UP OUTPATIENT CARE MANAGEMENT - [facility] Outpatient Referral Routine/Next Available Adjustment reaction with anxiety and depression Expected: 04/05/2023 (Approximate), Expires: 03/29/2024 documented as of this encounter Visit Diagnoses Diagnosis Adjustment reaction with anxiety and depression- Primary Adjustment disorder with mixed anxiety and depressed mood documented in this encounter Care Teams Music Engineer Relationship Specialty Start Date End Date Carrington Calderon MD 1 [facility] Level [address] [place] [phone] PCP - General Internal Medicine - Primary Care 12/09/20 documented as of this encounter
--- OUTSIDE RECORDS SUMMARY | 2023-12-16 00:33 | XMS_ITS | Encounter Summary ---
Author Organization [facility] Address [address] [place] [address] Care Team Providers Care Hand Marker Name Role Phone Carrington Calderon MD Primary Care Provi anders Reason for Visit * Reason Onset Date Comments Coordination Of Care 03/30/2023 Encounter Details Date Type Department Care Team (Late st Contact Info) Description 03/30/2023 Telephone [facility] Adult Primary Care [facility] 1 [place], [place] [address] Carrington Calderon MD [address] [facility] Level 1 [place] [address] Coordination Of Care Social History Tobacco Use Types Packs/Day [...] * Telephone Encounter - Karen Trujillo - 03/30/2023 1452 EDT Patient has been scheduled for a physical/F/U. * Telephone Encounter - Carrington Calderon MD - 03/30/2023 1431 EDT Call to Stella this afternoon. Lymphocytosis is persistent. Finding of normal leukemia/lymphoma panel is reassuring. Cause is unclear. When I spoke to her this afternoon, she brought up that she had notpreviously mentioned a number of active areas of dental infection, for which she is likely going toget a number of extractions. She sees a dental specialist next week or the week after. She also notes that she has major anxiety around dental work. She is interested in taking somethingfor this. Impression: Lymphocytosis: Possibly reactive, versus low-grade lymphoproliferative disorder. Recommended that we check an LDH, HIV. We should also repeat thyroid cascade as hyperthyroidism can be associated witha reactive lymphocytosis. She does take a vitamin supplement daily, so I recommended that she not take this in the week prior to getting repeat blood work done. I read him and that she and I see each other in a couple of months, and that she get blood work a few days before she sees me, again with no vitamin supplementation in the run up to the blood draw. Anxiety: I advised that she can take an additional dose of lorazepam if needed prior to dental work. documented in this encounter Plan of Treatment Upcoming Encounters Date Type Department Care Team (Late st Contact Info) Description 02/21/2024 9:45 EDT Office Visit [facility] Adult Primary Care - [address] [address] Carrington Calderon MD [address] [phone] 02/27/2024 8:30 EDT Telemedicine [facility] Sleep Program - [address] [address] Rn, Sleep 02/29/2024 10:30 EDT Appointment [facility] Radiology Nuclear Medicine and PET [address] [phone] 02/29/2024 14:30 EDT Appointment [facility] Radiology Nuclear Medicine and PET [address] [address] 03/01/2024 8:00 EDT Appointment [facility] Radiology Nuclear Medicine and PET [address] [address] 03/01/2024 9:30 EDT Appointment [facility] Radiology Nuclear Medicine and PET [address] [address] Scheduled Orders Name Type Priority Associated Diagnoses Orde r Schedule COMPLETE BLOOD COUNT AND DIFFERENTIAL Lab Routine Lymphocytosis Expected: 03/30/2023 (Approximate), Expires: 03/30/2024 HIV 1/2 ANTIGEN AND ANTIBODY, 4TH GENERATION Lab Routine Lymphocytosis Expected: 03/30/2023 (Approximate), Expires: 03/30/2024 LDH Lab Routine Lymphocytosis Expected: 03/30/2023 (Approximate), Expires: 03/30/2024 THYROID CASCADE Lab Routine Abnormal thyroid function test Expected: 03/30/2023 (Approximate), Expires: 03/30/2024 HEMOGLOBIN A1C Lab Routine Type 2 diabetes mellitus with diabetic polyneuropathy, with long-term current use of insulin ([facility]) ([facility]) Expected: 03/30/2023 (Approximate), Expires: 03/30/2024 documented as of this encounter Visit Diagnoses Diagnosis Lymphocytosis- Primary Lymphocytosis (symptomatic) Abnormal thyroid function test Nonspecific abnormal results of thyroid function study Type 2 diabetes mellitus with diabetic polyneuropathy, with long-term current use of insulin ([facility]) ([facility]) documented in this encounter Care Teams Hand Marker Relationship Specialty Start Date End Date Carrington Calderon MD [address] [facility] 1 [place] [address] PCP - General Internal Medicine - Primary Care 12/09/20 documented as of this encounter
--- OUTSIDE RECORDS SUMMARY | 2023-12-16 00:33 | XMS_ITS | Encounter Summary ---
Author Organization [facility] Address [address] [place] [address] Care Team Providers Care Straightening Press Operator Name Role Phone Carrington Calderon MD Primary Care Provi anders Abigail Díaz Unavailable [phone] Carmelo Hendrickson Unavailable Unavailable Encounter Details Date Type Department Care Team (Late st Contact Info) Description 03/18/2023 Orders Only [facility] Adult Primary Care - [place] [address] [place], [place] [address] Ratna Latham Abnormal TSH Social History Tobacco Use Types [...] slept in a detention (including now)? No 11/17/2022 Interpersonal Safety Answer [...] Info) Description 02/21/2024 9:45 EDT Office Visit [facility] Adult Primary Care - [address] [phone] Carrington Calderon MD [address] [place] [phone] 02/27/2024 8:30 EDT Telemedicine [facility] Sleep Program - [address] [phone] Rn, Sleep 02/29/2024 10:30 EDT Appointment [facility] Radiology Nuclear Medicine and PET [address] [phone] 02/29/2024 14:30 EDT Appointment [facility] Radiology Nuclear Medicine and [address] [phone] 03/01/2024 8:00 EDT Appointment [facility] Radiology Nuclear Medicine and [address] [phone] 03/01/2024 9:30 EDT Appointment [facility] Radiology Nuclear Medicine and PET [address] [phone] documented as of this encounter Procedures Procedure Name Priority Date/Time Associated Diagnosis Comments THYROID-STIMULATING IMMUNOGLOBULIN (TSI), SERUM Routine 03/14/2023 15:19 EDT Abnormal TSH documented in this encounter Results * THYROID-STIMULATING IMMUNOGLOBULIN (TSI), SERUM (03/14/2023 15:19 EDT) Thyroid-Stimulati ng Immunoglobin, S <1.0 <=1.3 TSI index 03/25/2023 15:55 EDT [facility] Comment: Test Performed by: [facility] [address] [place] [address] Fish Technologist: Wiley Fry M.D. Ph.D.; CLIA# [id number] Blood VENOUS BLOOD / Unknown Venipuncture / Unknown 03/14/2023 15:19 EDT 03/18/2023 16:07 EDT Carrington Calderon MD CHEMISTRY & BLOOD GAS ORDERABLES [facility] [address] [place] [address] documented in this encounter Visit Diagnoses Diagnosis Abnormal TSH Other abnormal clinical finding documented in this encounter Care Teams Straightening Press Operator Relationship Specialty Start Date End Date Carrington Calderon MD 1 [facility] Level 1 [place] [phone] PCP - General Internal Medicine - Primary Care 12/09/20 Abiagil Díaz Protective Service Specialist 04/21/23 Carmelo Hendrickson Coordinator 12/01/23 documented as of this encounter
--- OUTSIDE RECORDS SUMMARY | 2023-12-16 00:33 | XMS_ITS | Encounter Summary ---
Author Organization [facility] Address [address] [place] [address] Care Team Providers Care Fur Stretcher Name Role Phone Carrington Calderon MD Primary Care Provi anders Reason for Visit * Reason Onset Date Comments Critical Value 03/14/2023 Encounter Details Date Type Department Care Team (Late st Contact Info) Description 03/14/2023 Telephone [facility] Adult Primary Care - [place] 1 [place], [place] [address] Carrington Calderon MD 1 [facility] Level 1 [place] [address] Critical Value Social History Tobacco Use Types Packs/Day Years [...] encounter Miscellaneous Notes * Telephone Encounter - Vasiliy Yi PA-C - 03/14/20231706 EDT Agree with plan to re ceck her glucose Thank you * Telephone Encounter - Benita Thompson RN - 03/14/20231656 EDT Clinical Staff notified with Critical Results Provider Notified: Provider Name: Hola Yi PA-C Date: 03/14/23 Time: 1701 Treatment Plan: Patient Notified: yes Spoke to patient regarding serum glucose of 45. She did report that she was feeling shaky at the time of this phone call. Just prior to eating her lunch this afternoon her glucose was 125, she held her Novolog because she felt that her glucose was too low. She is drinking OJ during this call and will recheck her glucose again in 20 minutes. She was instructed to call the consultant in ergonomics and safety MD if it was not going up or if she still felt symptomatic. Confirmed that she did take her Jardiance and Janvia today, but did not take her afternoon Novolog. BENITA THOMPSON RN * Telephone Encounter - Karen Trujillo - 03/14/20231651 EDT Non Clinical Staff notified with Critical Results Ordering Provider: Carrington Calderon MD Date and Time Test was Performed: 03/14/2023 @ 15:19 PM Results: Glucose 45 Result Read Back and Verified: yes Nursing/Provider Notified: Nursing/Provider Name: Madelin Thompson RN Date: 03/14/2023 Time: 4:54 PM documented in this encounter Plan of Treatment Upcoming Encounters Date Type Department Care Team (Late st Contact Info) Description 02/21/2024 9:45 EDT Office Visit [facility] Adult Primary Care - [address] [address] Carrington Calderon MD [address] [place] [phone] 02/27/2024 8:30 EDT Telemedicine [facility] Sleep Program - [address] [address] Rn, Sleep 02/29/2024 10:30 EDT Appointment [facility] Radiology Nuclear Medicine and PET [address] [phone] 02/29/2024 14:30 EDT Appointment [facility] Radiology Nuclear Medicine and PET [address] [phone] 03/01/2024 8:00 EDT Appointment [facility] Radiology Nuclear Medicine and PET [address] [phone] 03/01/2024 9:30 EDT Appointment [facility] Radiology Nuclear Medicine and PET [address] [phone] documented as of this encounter Visit Diagnoses Not on filedocumented in this encounter Care Teams Fur Stretcher Relationship Specialty Start Date End Date Carrington Calderon MD [address] [place] [phone] PCP - General Internal Medicine - Primary Care 12/09/20 documented as of this encounter
--- OUTSIDE RECORDS SUMMARY | 2023-12-16 00:33 | XMS_ITS | Encounter Summary ---
Author Organization [facility] Address [address] [place] [address] Care Team Providers Care Karate Instructor Name Role Phone Carrington Calderon MD Primary Care Provi anders Reason for Visit * Reason Onset Date Comments Prior Auth, Medication 04/03/2023 Encounter Details Date Type Department Care Team (Late st Contact Info) Description 04/03/2023 Telephone [facility] Adult Primary Care [address] [phone] Carrington Calderon MD 1 [facility] Level 1 [place] [address] Prior Auth, Medication Social History Tobacco Use Types Packs/Day Years [...] slept in a halfway (including now)? No 11/17/2022 Interpersonal Safety Answer [...] Dispensed Refills Start Date End Da te HUMALOG KWIKPEN INSULIN 100 unit/mL injectable penIndications:Type 2 diabetes mellitus with diabetic polyneuropathy, with long-term current use of insulin ([facility]) Inject 12 Units into the skin 3 times daily with meals. 30 mL 1 04/04/2023 06/27/2023 documented in this encounter Miscellaneous Notes * Telephone Encounter - Carrington Calderon MD - 04/04/2023 0908 EDT OK to switch to humalog qwikpen, same dose as present novolog dose. Thanks. * Telephone Encounter - Karen Trujillo - 04/03/2023 1229 EDT Fax received stating Novolog needs authorization. Preferred medications are Admelog Solostar Humalog Humalog Kwikpen Insulin Aspart Insulin Lispro Can this be changed? documented in this encounter Plan of Treatment Upcoming Encounters Date Type Department Care Team (Late st Contact Info) Description 02/21/2024 9:45 EDT Office Visit [facility] Adult Primary Care - [address] [phone] Carrington Calderon MD [address] [phone] 02/27/2024 8:30 EDT Telemedicine [facility] Sleep Program - [address] [address] Rn, Sleep 02/29/2024 10:30 EDT Appointment [facility] Radiology Nuclear Medicine and PET - [address] [address] 02/29/2024 14:30 EDT Appointment [facility] Radiology Nuclear Medicine and PET [address] [address] 03/01/2024 8:00 EDT Appointment [facility] Radiology Nuclear Medicine and PET - [address] [address] 03/01/2024 9:30 EDT Appointment [facility] Radiology Nuclear Medicine and [address] [address] documented as of this encounter Visit Diagnoses Diagnosis Type 2 diabetes mellitus with diabetic polyneuropathy, with long-term current use of insulin ([facility])- Primary documented in this encounter Discontinued Medications Medication Sig Discontinue Reason Start Date End Da te NOVOLOG FLEXPEN U-100 INSULIN 100 unit/mL (3 mL) injectable penIndications:Type 2 diabetes mellitus with diabetic polyneuropathy, with long-term current use of insulin ([facility]) INJECT 12 UNITS THREE TIMES DAILY WITH MEALS Insurance does not cover 04/01/2023 04/04/2023 insulin lispro (HUMALOG KWIKPEN INSULIN) 100 unit/mL injectable penIndications:Type 2 diabetes mellitus with diabetic polyneuropathy, with long-term current use of insulin ([facility]) Inject 8-14 Units into the skin 3 times daily with meals. Reorder 11/18/2022 04/04/2023 documented as of this encounter Care Teams Karate Instructor Relationship Specialty Start Date End Date Carrington Calderon MD 1 [facility] 1 [place] [address] PCP - General Internal Medicine - Primary Care 12/09/20 documented as of this encounter
--- OUTSIDE RECORDS SUMMARY | 2023-12-16 00:33 | XMS_ITS | Encounter Summary ---
Author Organization [facility] Address [address] [place] [address] Care Team Providers Care Security Support Analyst Name Role Phone Carrington Calderon MD Primary Care Provi anders Reason for Referral * Consult (Routine/Next Available) - Specialty Report Received Specialty Diagnoses / Procedures Referred By Kit goode Referred To Contact Endocrinology Diagnoses Type 2 diabetes mellitus with diabetic polyneuropathy, with long-term current use of insulin ([facility]) Fermin Skinner MD [address] [phone] Harjinder Azevedo, DO [address] [place] [address] [place] [phone] Referral ID Status Reason Start Date Expiration Date Visits Requested Visits Authorized [id number] Specialty Report Received Specialty Services Required 04/14/2023 1 1 Question Answer Reason for Request: Type II DM Reason for Visit * Reason Onset Date Comments Referral Request 04/14/2023 Encounter Details Date Type Department Care Team (Late st Contact Info) Description 04/14/2023 Telephone [facility] Adult Primary Care - [address] [phone] Carrington Calderon MD [address] [phone] Referral Request Social History Tobacco Use Types [...] encounter Miscellaneous Notes * Telephone Encounter - Eulalia Mccall RN - 04/14/2023 1419 EST Spoke with pt who reports her yarn wrapper recommended she see Dr Azevedo for diabetes. Referral pended for review. * Telephone Encounter - Misty Barahona - 04/14/2023 1308 EST Stella came up to the front office coordinator today (Spouse has an appointment) and is requesting a referral to Nathanael Azevedo, Staff Radiation Therapist. documented in this encounter Plan of Treatment Upcoming Encounters Date Type Department Care Team (Late st Contact Info) Description 02/21/2024 9:45 EDT Office Visit [facility] Adult Primary Care - [address] [address] Carrington Calderon MD [address] [phone] 02/27/2024 8:30 EDT Telemedicine [facility] Sleep Program - [address] [address] Rn, Sleep 02/29/2024 10:30 EDT Appointment [facility] Radiology Nuclear Medicine and PET [address] [address] 02/29/2024 14:30 EDT Appointment [facility] Radiology Nuclear Medicine and PET [address] [address] 03/01/2024 8:00 EDT Appointment [facility] Radiology Nuclear Medicine and PET [address] [address] 03/01/2024 9:30 EDT Appointment [facility] Radiology Nuclear Medicine and PET [address] [address] Scheduled Referrals Name Type Priority Associated Diagnoses Order Schedule AMB CONS/FOLLOW UP ENDOCRINOLOGY Outpatient Referral Routine/Next Available Type 2 diabetes mellitus with diabetic polyneuropathy, with long-term current use of insulin ([facility]) ([facility]) Expected: 04/21/2023 (Approximate), Expires: 04/14/2024 documented as of this encounter Visit Diagnoses Diagnosis Type 2 diabetes mellitus with diabetic polyneuropathy, with long-term current use of insulin ([facility]) ([facility])- Primary documented in this encounter Care Teams Security Support Analyst Relationship Specialty Start Date End Date Carrington Calderon MD [address] [place] [phone] PCP - General Internal Medicine - Primary Care 12/09/20 documented as of this encounter
--- OUTSIDE RECORDS SUMMARY | 2023-12-16 00:33 | XMS_ITS | Encounter Summary ---
Author Organization [facility] Address [address] [place] [address] Care Team Providers Care National Service Officer Name Role Phone Carrington Calderon MD Primary Care Provi anders Bre Abigail Unavailable [phone] Carmelo Hendrickson Unavailable Unavailable Reason for Visit * Reason Onset Date Comments Coordination Of Care 02/17/2023 Encounter Details Date Type Department Care Team (Late st Contact Info) Description 02/17/2023 Telephone [facility] Adult Primary Care - [address] [address] Carrington Calderon MD 1 [facility] Level 1 [place] [address] Coordination Of Care Social History [...] slept in a intermediate (including now)? No 11/17/2022 Interpersonal Safety Answer Date Record ed How often does anyone, inclu chivo family, hit, punch or physically hurt you? Never 11/17/2022 How often does anyone, inclu chivo family, [...] Info) Description 02/21/2024 9:45 EDT Office Visit [facility] Adult Primary Care - [address] [phone] Carrington Calderon MD [address] [place] [phone] 02/27/2024 8:30 EDT Telemedicine [facility] Sleep Program - [address] [phone] Rn, Sleep 02/29/2024 10:30 EDT Appointment [facility] Radiology Nuclear Medicine and [address] [phone] 02/29/2024 14:30 EDT Appointment [facility] Radiology Nuclear Medicine and PET [address] [phone] 03/01/2024 8:00 EDT Appointment [facility] Radiology Nuclear Medicine and PET [address] [phone] 03/01/2024 9:30 EDT Appointment [facility] Radiology Nuclear Medicine and PET [address] [phone] documented as of this encounter Results * (ABNORMAL) COMPLETE BLOOD COUNT AND DIFFERENTIAL (03/14/2023 15:19 EDT) [facility] Signature WBC 18.08(H) 4.00 - 12.40 K/cmm 03/14/2023 16:23 [facility] RBC 4.40 3.86 - 5.04 M/cmm 03/14/2023 16:23 [facility] Hemoglobin 14.0 11.6 - 15.2 g/dL 03/14/2023 16:23 [facility] HCT 40.6 34.9 - 44.4 % 03/14/2023 16:23 [facility] MCV 92 81 - 98 fL 03/14/2023 16:23 [facility] MCH 31.8 26.7 - 33.3 pg 03/14/2023 16:23 [facility] MCHC 34.5 32.1 - 35.9 g/dL 03/14/2023 16:23 [facility] RDW-CV 12.6 <14.7 % 03/14/2023 16:23 [facility] RDW-SD 42.6 <50.4 fl 03/14/2023 16:23 [facility] PLT 412(H) 141 - 377 K/cmm 03/14/2023 16:23 [facility] MPV 9.3(L) 9.5 - 12.7 fL 03/14/2023 16:23 [facility] Blood VENOUS BLOOD / Unknown Venipuncture / Unknown 03/14/2023 15:19 EDT 03/14/2023 15:19 EDT Carrington Calderon MD PACKAGES & DNA PROBE ORDERABLES [facility] [address] [place] [address] * (ABNORMAL) HEMOGLOBIN A1C (03/14/2023 15:19 EDT) Hemoglobin A1c 8.3(H) <5.7 % 03/14/2023 22:02 [facility] Comment: Glycemic Status References: Normal: ??<5.7% Pre-Diabetes: ??5.7% - 6.4% Diagnostic of Diabetes: ??> or = 6.5% (if confirmed) Est Avg Glucose 192 mg/dL 22:02 EDT [facility] Comment:The eAG represents t he A1c result expressed as average glucose in mg/dL. Blood VENOUS BLOOD / Unknown Venipuncture / Unknown 03/14/2023 15:19 EDT 03/14/2023 15:19 EDT Carrington Calderon MD CHEMISTRY & BLOOD GAS ORDERABLES Performing Organization Address City/State/[facility] Co de Phone Number [facility] [address] [place] [address] * (ABNORMAL) BASIC METABOLIC PANEL (BMP) (03/14/2023 15:19 EDT) Sodium 142 136 - 145 mmol/L 03/14/2023 16:50 [facility] Potassium 4.2 3.5 - 5.0 mmol/L 03/14/2023 16:50 [facility] Chloride 103 96 - 110 mmol/L 03/14/2023 16:50 [facility] CO2 Total 25 22 - 32 mmol/L 03/14/2023 16:50 [facility] Anion Gap 14 5 - 14 mmol/L 03/14/2023 16:50 [facility] Glucose 45(LL) 70 - 99 mg/dl 03/14/2023 16:50 [facility] Calcium 9.9 8.5 - 10.5 mg/dL 03/14/2023 16:50 [facility] BUN 11 10 - 26 mg/dL 03/14/2023 16:50 [facility] Creatinine 0.99 0.52 - 1.04 mg/dL 03/14/2023 16:50 [facility] eGFR 75 >60 mL/min/1.73 m2 03/14/2023 16:50 [facility] Blood VENOUS BLOOD / Unknown Venipuncture / Unknown 03/14/2023 15:19 EDT 03/14/2023 15:19 EDT Carrington Calderon MD CHEMISTRY & BLOOD GAS ORDERABLES [facility] [address] [place] [address] documented in this encounter Visit Diagnoses Diagnosis Type 2 diabetes mellitus with diabetic polyneuropathy, with long-term current use of insulin ([facility] Primary documented in this encounter Care Teams National Service Officer Relationship Specialty Start Date End Date Carrington Calderon MD 1 [facility] Level 1 [place] [phone] PCP - General Internal Medicine - Primary Care 12/09/20 Abigail Díaz Inside Sales Coordinator 04/21/23 Carmelo Hendrickson Coordinator 12/01/23 documented as of this encounter
--- OUTSIDE RECORDS SUMMARY | 2023-12-16 00:33 | XMS_ITS | Encounter Summary ---
Author Organization [facility] Address [address] [place] [address] Care Team Providers Care Marketing Ambassador Name Role Phone Carrington Calderon MD Primary Care Provi anders Reason for Visit * Reason Onset Date Comments Medications Refill 02/01/2023 Encounter Details Date Type Department Care Team (Late st Contact Info) Description 02/01/2023 Refill [facility] Adult Primary Care [address] [phone] Carrington Calderon MD 1 [facility] Level 1 [place] [phone] Medications Refill Social History Tobacco [...] in a nursing home (including now)? No 11/17/2022 Interpersonal Safety [...] tabletIndications:Chronic midline low back pain without sciatica Take 1 Tablet by mouth every 6 hours as needed for Pain. Daily Max: 200 mg 30 Tablet 5 02/01/2023 06/27/2023 documented in this encounter Miscellaneous Notes * Telephone Encounter - Nelly Jain - 02/01/2023 0843 EDT Medication(s) Requested: Tramadol Preferred Pharmacy: [facility] Is patient out of medication? No Last Refill Date: 01/06/2023 Last Visit Date with Ordering Provider: 11/17/2022 physical Next Non-Acute Visit Date Scheduled with Care Team: 03/16/2023 office visit Going out of town . Would like to pick this up before she leaves. Nelly Jain 02/01/2023 8:43 documented in this encounter Plan of Treatment Upcoming Encounters Date Type Department Care Team (Late st Contact Info) Description 02/21/2024 9:45 EDT Office Visit [facility] Adult Primary Care - [address] [phone] Carrington Calderon MD [address] [phone] 02/27/2024 8:30 EDT Telemedicine [facility] Sleep Program - [address] [address]231 Rn, Sleep 02/29/2024 10:30 EDT Appointment [facility] Radiology Nuclear Medicine and PET - [address] [address] 02/29/2024 14:30 EDT Appointment [facility] Radiology Nuclear Medicine and PET [address] [address] 03/01/2024 8:00 EDT Appointment [facility] Radiology Nuclear Medicine and PET [address] [address] 03/01/2024 9:30 EDT Appointment [facility] Radiology Nuclear Medicine and PET [address] [address] documented as of this encounter Visit Diagnoses Diagnosis Chronic midline low back pain without sciatica- Primary documented in this encounter Discontinued Medications Medication Sig Discontinue Reason Start Date End Da te traMADol (ULTRAM) 50 mg tabletIndications:Chroni c midline low back pain without sciatica TAKE 1 TABLET BY MOUTH EVERY 6 HOURS NEEDED FOR PAIN. DAILY MAX 200MG Reorder 01/06/2023 02/01/2023 documented as of this encounter Care Teams Marketing Ambassador Relationship Specialty Start Date End Date Carrington Calderon MD 1 [facility] Level 1 [place] [phone] PCP - General Internal Medicine - Primary Care 12/09/20 documented as of this encounter
--- OUTSIDE RECORDS SUMMARY | 2023-12-16 00:34 | XMS_ITS | Encounter Summary ---
Author Organization [facility] Address [address] [place] [address] Care Team Providers Care Gasoline Locomotive Crane Operator Name Role Phone Carrington Calderon MD Primary Care Provi anders Abigail Díaz Unavailable Cramelo Hendrickson Unavailable Unavailable Reason for Visit * Reason Onset Date Comments Prior Auth, Medication 11/18/2022 Encounter Details Date Type Department Care Team (Late st Contact Info) Description 11/18/2022 Telephone [facility] Adult Primary Care - [address] [address] Carrington Calderon MD 1 [facility] Level 1 [place] [address] Prior Auth, Medication Social History [...] Dispensed Refills Start Date End Da te insulin lispro (HUMALOG KWIKPEN INSULIN) 100 unit/mL injectable penIndications:Type 2 diabetes mellitus with diabetic polyneuropathy, with long-term current use of insulin ([facility]) Inject 8-14 Units into the skin 3 times daily with meals. 15 mL 3 11/18/2022 04/04/2023 documented in this encounter Miscellaneous Notes * Telephone Encounter - Fermin Skinner MD - 11/18/2022 1600 EDT humalog kwikpen ordered * Telephone Encounter - Berenice Mahan - 11/18/2022 1437 EDT The preferred alternatives include the following: HUMALOG KWIKPEN U-100,LYUMJEV KWIKPEN U-100? Does not appear that patient and tried and failed Humalog. Is script able to be changed? * Telephone Encounter - Kamini Raya - 11/18/2022 1248 EDT Medication Name: insulin aspart U-100 (NOVOLOG FLEXPEN) 100 unit/mL (3 mL) injectable pen Mejia: [id number] documented in this encounter Plan of Treatment Upcoming Encounters Date Type Department Care Team (Late st Contact Info) Description 02/21/2024 9:45 EDT Office Visit [facility] Adult Primary Care - [address] [phone] Carrington Calderon MD [address] [phone] 02/27/2024 8:30 EDT Telemedicine [facility] Sleep Program - [address] [phone] Rn, Sleep 02/29/2024 10:30 EDT Appointment [facility] Radiology Nuclear Medicine and PET [address] 177691 02/29/2024 14:30 EDT Appointment [facility] Radiology Nuclear Medicine and PET [address] 899111 03/01/2024 8:00 EDT Appointment [facility] Radiology Nuclear Medicine and PET [address] 812351 03/01/2024 9:30 EDT Appointment [facility] Radiology Nuclear Medicine and [address] 0837[address] documented as of this encounter Visit Diagnoses Diagnosis Type 2 diabetes mellitus with diabetic polyneuropathy, with long-term current use of insulin ([facility])- Primary documented in this encounter Discontinued Medications Medication Sig Discontinue Reason Start Date End Da te insulin aspart U-100 (NOVOLOG FLEXPEN) 100 unit/mL (3 mL) injectable penIndications:type 2 diabetes mellitus,as needed with meals. Inject 8-14 Units into the skin 3 times daily with meals. Sliding scale- 8+(2-6) units premeal Insurance does not cover 11/17/2022 11/18/2022 documented as of this encounter Care Teams Gasoline Locomotive Crane Operator Relationship Specialty Start Date End Date Carrington Calderon MD [address] [place] [phone] PCP - General Internal Medicine - Primary Care 12/09/20 Abigail Díaz Powertrain Design Engineer 04/21/23 Carmelo Hendrickson Coordinator 12/01/23 documented as of this encounter
--- OUTSIDE RECORDS SUMMARY | 2023-12-16 00:34 | XMS_ITS | Encounter Summary ---
Author Organization [facility] Address [address] [place] [address] Care Team Providers Care Truss Puller Helper Name Role Phone Carrington Calderon MD Primary Care Provi anders Reason for Visit * Reason Onset Date Comments Results 03/30/2022 Encounter Details Date Type Department Care Team (Late st Contact Info) Description 03/30/2022 Telephone [facility] Adult Primary Care [facility] 1 [place], [place] [address] Carrington Calderon MD 1 [facility] Level [address] [place] [phone] Results Social History Tobacco Use Types Packs/Day Years Used Date Smoking Tobacco: Former Cigarettes 0.3 13.1 S tarted: 11/10/2010 Smokeless Tobacco: Never [...] care, and heating? Not hard at all 01/13/2022 PHQ-2 Answer Date Recorded PHQ-2 SUBTOTAL 2 01/13/2022 Hunger Vital Sign Answer Date Recorded Within the past 12 months, y ou worried that your food would run out before you got the money to buy more. Never true 01/14/20 22 Within the past 12 months, t he food you bought just didn't last and you didn't have money to get more. Never true 01/13/2022 PRAPARE - Transportation Answer Date Re corded In the past 12 months, has l ack of transportation kept you from medical appointments or from getting medications? No 01/04 In the past 12 months, has l ack of transportation kept you from meetings, work, or from getting things needed for daily living? No 01/13/2022 Housing Stability Vital Sign Answer Norm e Recorded Unable to Pay for Housing in the Last Year Not o n file 01/13/2022 Number of Places Lived in the Last Year Not on f ile 01/13/2022 In the last 12 months, was t here a time when you did not have a steady place to sleep or slept in a assisted (including now)? No 01/13/2022 Interpersonal Safety Answer Date Record ed How often does anyone, audrey waldron family, hit, punch or physically hurt you? Never 01/13/2022 How often does anyone, bennynick chivo family, insult, scream, curse or threaten to hurt you? Never 01/13/2022 Sex and Gender Information Value Date Recorded [...] encounter Miscellaneous Notes * Telephone Encounter - Tyrell Elkins RN - 04/07/2022 1053 EDT Letter sent with results * Telephone Encounter - Kamini Raya - 04/02/2022 0928 EDT Patient was a no show for her appointment on 04/01/[address] Calderon. * Telephone Encounter - Jesi Lua RN - 03/30/2022 1050 EDT Left message for pt to call back to discuss message, if she doesn't call back she does have appt on04/01/[address] Calderon * Telephone Encounter - Carrington Calderon MD - 03/30/2022 0934 EDT Please let Stella know that her lumbar spine x-ray done at [facility] shows some mild arthritis throughout the lower spine. This is a fairly typical finding. We can discuss her back symptoms in greater detail at her next visit. She can schedule sooner appointment if she has questions or concerns about this. documented in this encounter Plan of Treatment Upcoming Encounters Date Type Department Care Team (Late st Contact Info) Description 02/21/2024 9:45 EDT Office Visit [facility] Adult Primary Care - [address] [address] Carrington Calderon MD [address] [phone] 02/27/2024 8:30 EDT Telemedicine [facility] Sleep Program - [address] [address] Rn, Sleep 02/29/2024 10:30 EDT Appointment [facility] Radiology Nuclear Medicine and PET - [address] [address] 02/29/2024 14:30 EDT Appointment [facility] Radiology Nuclear Medicine and PET [address] [address] 03/01/2024 8:00 EDT Appointment [facility] Radiology Nuclear Medicine and PET [address] [address] 03/01/2024 9:30 EDT Appointment [facility] Radiology Nuclear Medicine and PET - [address] [address] documented as of this encounter Visit Diagnoses Not on filedocumented in this encounter Care Teams Truss Puller Helper Relationship Specialty Start Date End Date Carrington Calderon MD [address] [place] [phone] PCP - General Internal Medicine - Primary Care 12/09/20 documented as of this encounter
--- OUTSIDE RECORDS SUMMARY | 2023-12-16 00:34 | XMS_ITS | Encounter Summary ---
Author Organization [facility] Address [address] [place] [address] Care Team Providers Care Research Test Engine Evaluator Name Role Phone Carrington Calderon MD Primary Care Provi anders Reason for Visit * Reason Comments Medications Refill Encounter Details Date Type Department Care Team (Late st Contact Info) Description 02/26/2022 Refill [facility] Adult Primary Care [facility] 1 [place], [place] [address] Tonja Alejandro PA-C [address] [place] [address] [place] [phone] Medications Refill Social History Tobacco Use Types [...] [place] [facility] (including now)? No 01/13/2022 Interpersonal Safety Answer [...] Dispensed Refills Start Date End Da te metoclopramide HCl (REGLAN) 10 mg tablet Take 1 Tablet by mouth 3 times daily before meals. 270 Tablet 3 03/02/2022 06/27/2023 documented in this encounter Miscellaneous Notes * Telephone Encounter - Nichole Márquez - 03/01/2022927 EDT Medication(s) Requested: METOCLOPRAMIDE HCI 10 MG Preferred Pharmacy: [facility] Is patient out of medication? Unknown Last Refill Date: 02.18.21 Last Visit Date with Ordering Provider: 01.29.22 Next Non-Acute Visit Date Scheduled with Care Team: Yes.04.01.22 Nichole Márquez 03/01/2022 9:28 documented in this encounter Plan of Treatment Upcoming Encounters Date Type Department Care Team (Late st Contact Info) Description 02/21/2024 9:45 EDT Office Visit [facility] Adult Primary Care - [address] [phone] Carrington Calderon MD 1 [facility] 1 [place] [phone] 02/27/2024 8:30 EDT Telemedicine [facility] Sleep Program - [address] [phone] Rn, Sleep 02/29/2024 10:30 EDT Appointment [facility] Radiology Nuclear Medicine and PET - [address] [address] 02/29/2024 14:30 EDT Appointment [facility] Radiology Nuclear Medicine and PET - [address] [address] 03/01/2024 8:00 ED[facility] Nuclear Medicine and PET - [address] [address] 03/01/2024 9:30 EDT [facility] Radiology Nuclear Medicine and PET - [address] [address] documented as of this encounter Visit Diagnoses Not on filedocumented in this encounter Discontinued Medications Medication Sig Discontinue Reason Start Date End Da te metoclopramide HCl (REGLAN) 10 mg tablet Take 1 Tablet by mouth 3 times daily before meals for 90 days. 11/20/2020 03/02/2022 documented as of this encounter Care Teams Research Test Engine Evaluator Relationship Specialty Start Date End Date Carrington Calderon MD 1 [facility] 1 [place] [phone] PCP - General Internal Medicine - Primary Care 12/09/20 documented as of this encounter
--- OUTSIDE RECORDS SUMMARY | 2023-12-16 00:34 | XMS_ITS | Encounter Summary ---
Author Organization [facility] Address [address] [place] [address] Care Team Providers Care Merchandising Professor Name Role Phone Carrington Calderon MD Primary Care Provi anders BreAlvaradodi Unavailable Carmelo Hendrickson Unavailable Unavailable Encounter Details Date Type Department Care Team (Late st Contact Info) Description 01/26/2022 Orders Only [facility] [place] [facility] Adult Primary Care - [place] [address] [place] [address] Carrington Calderon MD 1 [facility] Level 1 [place] [phone] Type 2 diabetes mellitus with diabetic polyneuropathy, with long-term current use of insulin ([facility]) ([facility]) (Primary Dx) Social History Tobacco Use Types [...] slept in a half-way (including now)? No 01/13/2022 Interpersonal Safety Answer Date Record ed How often does anyone, bennynick chivo family, hit, punch or physically hurt [...] as of this encounter Progress Notes * Carrington Calderon MD - 01/26/2022 0815 EDT All set. Thanks. documented in this encounter Plan of Treatment Upcoming Encounters Date Type Department Care Team (Late st Contact Info) Description 02/21/2024 9:45 EDT Office Visit [facility] [place] [facility] Adult Primary Care - [address] [phone] Carrington Calderon MD [address] [phone] 02/27/2024 8:30 EDT Telemedicine [facility] Sleep Program - [address] [phone] Rn, Sleep 02/29/2024 10:30 EDT Appointment [facility] Radiology Nuclear Medicine and PET - [address] [address] 02/29/2024 14:30 EDT Appointment [facility] Radiology Nuclear Medicine and PET [address] [address]60[address] 03/01/2024 8:00 EDT Appointment [facility] Radiology Nuclear Medicine and PET [address] [address]131 03/01/2024 9:30 EDT Appointment [facility] Radiology Nuclear Medicine and PET [address] [address] documented as of this encounter Visit Diagnoses Diagnosis Type 2 diabetes mellitus with diabetic polyneuropathy, with long-term current use of insulin ([facility])- Primary documented in this encounter Care Teams Merchandising Professor Relationship Specialty Start Date End Date Carrington Calderon MD 1 [facility] 1 [place] [phone] PCP - General Internal Medicine - Primary Care 12/09/20 Abigail Díaz Train Gateman 04/21/23 Carmelo Hendrickson Coordinator 12/01/23 documented as of this encounter
--- OUTSIDE RECORDS SUMMARY | 2023-12-16 00:34 | XMS_ITS | Encounter Summary ---
Author Organization [facility] Address [address] [place] [address] Care Team Providers Care Secondary Market Manager Name Role Phone Carrington Calderon MD Primary Care Provi anders Abigail Díaz Unavailable [phone] Carmelo Hendrickson Unavailable Unavailable Reason for Visit * Reason Onset Date Comments Appointment Related 03/30/2022 Encounter Details Date Type Department Care Team (Late st Contact Info) Description 03/30/2022 Telephone [facility] Endocrinology - [address] [address] Lizette Veloz RPH Appointment Related Social History Tobacco Use Types [...] slept in a penitentiary (including now)? No 01/13/2022 Interpersonal Safety Answer Date Record ed How often does anyone, audrey waldron family, hit, punch or physically hurt you? Never 01/13/2022 How often does anyone, audrey waldron family, [...] encounter Miscellaneous Notes * Telephone Encounter - Cristy Murcia - 04/09/2022 1418 EDT LMOM for patient to call back to schedule with Lizette - see prior note below. * Telephone Encounter - Cristy Murcia - 04/05/2022 1047 EDT Pt phone not able to accept vm. Will attempt again. * Telephone Encounter - Cristy Murcia - 03/30/2022 1318 EDT LMOM x1 to schedule in office visit with Lizette Veloz. 60 min * Telephone Encounter - Cristy Murcia - 03/30/2022 1317 EDT ----- Message from Lizette Veloz [facility] sent at 03/16/2022 14:47 EDT ----- Dr. Mims referral. Can we get her scheduled with me 1-2 weeks after she restarts her sensor? In- person preferred if she is not data sharing. If she has data sharing, zoom or phone OK. 30 minutes OK. Thank you! -Lizette documented in this encounter Plan of Treatment Upcoming Encounters Date Type Department Care Team (Late st Contact Info) Description 02/21/2024 9:45 EDT Office Visit [facility] Adult Primary Care - [address] [address] Carrington Calderon MD [address] [phone] 02/27/2024 8:30 EDT Telemedicine [facility] Sleep Program - [address] [address] Rn, Sleep 02/29/2024 10:30 EDT Appointment [facility] Radiology Nuclear Medicine and PET - [address] [address] 02/29/2024 14:30 EDT Appointment [facility] Radiology Nuclear Medicine and PET [address] 793241 03/01/2024 8:00 EDT Appointment [facility] Radiology Nuclear Medicine and PET [address] [address]461 03/01/2024 9:30 EDT Appointment [facility] Radiology Nuclear Medicine and PET [address] [address] documented as of this encounter Visit Diagnoses Not on filedocumented in this encounter Care Teams Secondary Market Manager Relationship Specialty Start Date End Date Carrington Calderon MD [address] [place] [phone] PCP - General Internal Medicine - Primary Care 12/09/20 Abigail Díaz Superintendent Electric Power 04/21/23 Carmelo Hendrickson Coordinator 12/01/23 documented as of this encounter
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
--- OUTSIDE RECORDS SUMMARY | 2023-12-16 00:34 | XMS_ITS | Encounter Summary ---
Author Organization [facility] Address [address] [place] [address] Care Team Providers Care Mushroom Packer Name Role Phone Carrington Calderon MD Primary Care Provi anders Reason for Visit * Reason Comments Diabetes * Consult (See Order Priority) - Specialty Report Received Specialty Diagnoses / Procedures Referred By Kit goode Referred To Contact Endocrinology Diagnoses Type 2 diabetes mellitus with diabetic polyneuropathy, with long-term current use of insulin ([facility]) Carrington Calderon MD 1 [facility] Level 1 [place] [address] [facility] Endocrinology [address] [place] [id number] Referral ID Status Reason Start Date Expiration Date Visits Requested Visits Authorized [id number] Specialty Report Received Specialty Services Required 01/29/2022 1 1 Encounter Details Date Type Department Care Team (Late st Contact Info) Description 03/15/2022 8:40 EDT Telemedicine [facility] Endocrinology - [address] [address] Eryn Mims DO [address] [place] [address] [address] [place] [address] Type 2 diabetes mellitus with diabetic polyneuropathy, with long-term current use of insulin (HCC-CMS) (Primary Dx) Social History Tobacco Use Types [...] slept in a alf (including now)? No 01/13/2022 Interpersonal Safety Answer [...] Dispensed Refills Start Date End Da te SITagliptin (JANUVIA) 50 mg tablet Take 1 Tablet by mouth daily. 90 Tablet 3 03/15/2022 11/17/2022 flash glucose sensor (FREESTYLE VIGNESH 2 SENSOR) kit 1 Device by misc (non-drug; combo route) route continuous. 6 Kit 3 03/15/2022 05/21/2022 documented in this encounter Progress Notes * Eryn Mims, - 03/15/2022 0840 EDT Today's visit was provided through telemedicine video conferencing: The patient was located at home. I was located at home. Consent was obtained. The patient is seen for follow up of type 2 DM. She was first diagnosed around 10 years ago. She was over 500 pounds at that time. She left her and lost 300 pounds. She is hoping to get her A1c levels to goal to be able to have skin removal surgery. She has been having yeast infections in these areas. She was last seen here in 08/24 by Mary Zafar. She denies any problems with low blood sugars. She takes Lantus 40 units at bed, Novolog 12 units at meals TID, along with Januvia 50 mg daily. She typically tests multiple times a day using the Vignesh 2. She has been having supply problems with her sensors. She has not been able to test in the past 4 weeks. Because of this, she has only been taking 4-6 units of Novolog at meals because she is fearful of lows. She has gastroparesis, she has met with GI. She is taking Reglan at bed. She has been on this medication for over one year. Her symptoms vary. She watches her diet in this regard. She denies problemswith low blood sugars and can recognize the symptoms. She recently had COVID and recovered from this well. She last saw the eye doctor over one year ago and will make an appointment. She overall feels well in general and denies any new chest pain, palpitations, trouble breathing, bowel movement changes, new painful neuropathy or any other new complaints. She takes Neurontin for neuropathy that occurs atnight. The remainder of review of systems is unremarkable. Her menses and regular, she has had a tubal removal. The patient's medications, social history and allergies were reviewed. Current Outpatient Medications Medication Sig Dispense Refill ??? acetaminophen (TYLENOL) 325 mg tablet Take 2 Tabs by mouth every 4 hours as needed for Pain. ??? blood glucose meter One Touch Verio Flex meter. 1 Each 0 ??? blood glucose test strips Brand: [employer] [place], use as directed if Freestyle Vignesh censor isnt working (Patient not taking: Reported on 10/09/2021) 100 Each 3 ??? blood glucose test strips One Touch Verio IQ or other brand compatible with meter and covered by patient's insurance. Testing QID. (Patient not taking: Reported on 10/09/2021) 100 Each 5 ??? flash glucose scanning reader (FREESTYLE VIGNESH 2 READER) misc [address] [facility] (non-drug; comboroute) route continuous. 1 Each 0 ??? flash glucose sensor (FREESTYLE VIGNESH 14 DAY SENSOR) kit Inject 1 Kit into the skin every 14 days. 6 Kit 3 ??? flash glucose sensor (FREESTYLE VIGNESH 2 SENSOR) kit [address] [facility] (non- drug; combo route) route continuous. 6 Kit 3 ??? gabapentin (NEURONTIN) 300 mg capsule Take 300mg in the morning and 900mg in the evening 120 capsule 11 ??? insulin aspart U-100 (NOVOLOG FLEXPEN) 100 unit/mL (3 mL) injectable pen Inject 12 Units into the skin 3 times daily with meals. 30 mL 2 ??? insulin glargine (LANTUS SOLOSTAR/SEMGLEE) 100 unit/mL (3 mL) injection pen Inject 40 Units into the skin at bedtime for 90 days. 36 mL 4 ??? insulin pen needles 31G x 5/16 Use 1 pen needle as directed 4 times daily. 400 Each 2 ??? lancets Brand: Freestyle, use as directed if Freestyle Vignesh censor isnt working (Patient not taking: Reported on 10/09/2021) 100 Each 3 ??? lancets One Touch Delica or other brand compatible with lancing device and covered by patient'sinsurance. (Patient not taking: Reported on 12/21/2021) 100 Each 5 ??? lidocaine 5 % (LIDODERM) 5 % patch Place 1 Patch onto the skin daily. Patch(es) may remain in place for up to 12 hours in any 24-hour period. 30 Patch 0 ??? LORazepam (ATIVAN) 0.5 mg tablet Take 1 Tablet by mouth daily as needed for Anxiety. Daily Max:0.5 mg 30 Tablet 3 ??? metoclopramide HCl (REGLAN) 10 mg tablet Take 1 Tablet by mouth 3 times daily before meals. 270Tablet 3 ??? nicotine (NICODERM CQ) 14 mg/24 hr patch Apply one patch only daily on skin without hair. Applyto a different skin site at the same time each day. 42 Patch 0 ??? nicotine (NICODERM CQ) 7 mg/24 hr patch Apply one patch only daily on skin without hair. Apply to a different skin site at the same time each day. 14 Patch 0 ??? nystatin (MYCOSTATIN) cream Apply to area under abdominal/groin skin twice daily (Patient not taking: Reported on 02/26/2022) 30 g 0 ??? omeprazole (PRILOSEC) 20 mg capsule Take 1 capsule by mouth daily. 90 capsule 3 ??? ondansetron (ZOFRAN-ODT) 4 mg disintegrating tablet Take 1 Tablet by mouth every 8 hours as needed for Nausea. 30 Tablet 11 ??? prochlorperazine (COMPAZINE) [address] 1 Suppository rectally every 12 hours as needed for Nausea. 6 Suppository 0 ??? SITagliptin (JANUVIA) 50 mg tablet Take 1 Tab by mouth daily. 90 Tab 3 ??? TENS unit and electrodes combo pack 1 Each by misc (non-drug; combo route) route daily. (Patient not taking: Reported on 10/09/2021) 1 Each 0 ??? traMADol (ULTRAM) 50 mg tablet Take 1 Tablet by mouth every 6 hours as needed for Pain. Daily Max: 200 mg 30 Tablet 5 No current facility-administered medications for this visit. Physical Exam: Not performed due to nature of telehealth visit. General: pleasant, alert, no acute distress. Lab Results Component Value Date HGBA1C 9.7 (H) 07/28/2020 Lab Results Component Value Date CHOL 179 11/28/2019 TRIG 398 11/28/2019 HDL 38 11/28/2019 LDLBASE 61 11/28/2019 CHOLHDL 4.7 11/28/2019 No recent labs or blood sugars to review. Assessment/Plan: 1. Type 2 DM with poor glycemic control. The patient was advised that her A1c levels have been highand above goal. She will have updated labs performed soon near her home and I sent lab orders to a nearby hospital today. We reviewed the goals for good glycemic control and the symptoms of low bloodsugar. I have renewed her sensors. She was asked to return her typically insulin regimen. She will test her blood sugar at least 4-5 times a day and will contact my office with her readings for further adjustments. I will ask our pharmacist to reach out to her later this week. She will remain on Januvia at this time. I advised that her current dose is for someone with renal insufficiency. Her GFR will be tested with her upcoming labs. I will adjust her dose if needed. We discussed balancing her diet between carbs and what is best for gastroparesis. She will schedule an eye exam. We discussed proper foot care. Labs will be tested soon. Her blood pressure will be monitored over time. Her last lipids were reviewed and will be tested fasting with her upcoming labs. She will return here in 3 months and was encouraged to follow up here on a regular basis. Thank youfor allowing me to participate in her care. The concept of ???Telemedicine?? has been described [...] copays, deductible or coinsurance for this service. documented in this encounter Plan of Treatment Upcoming Encounters Date Type Department Care Team (Late st Contact Info) Description 02/21/2024 9:45 EDT Office Visit [facility] Adult Primary Care - [address] [phone] Carrington Calderon MD [address] [place] [phone] 02/27/2024 8:30 EDT Telemedicine [facility] Sleep Program - [address] [address] Rn, Sleep 02/29/2024 10:30 EDT Appointment [facility] Radiology Nuclear Medicine and PET - [address] [phone] 02/29/2024 14:30 EDT Appointment [facility] Radiology Nuclear Medicine and PET [address] [id number] 03/01/2024 8:00 EDT Appointment [facility] Radiology Nuclear Medicine and PET [address] [id number] 03/01/2024 9:30 EDT Appointment [facility] Radiology Nuclear Medicine and PET - [address] [address] documented as of this encounter Visit Diagnoses Diagnosis Type 2 diabetes mellitus with diabetic polyneuropathy, with long-term current use of insulin ([facility])- Primary documented in this encounter Discontinued Medications Medication Sig Discontinue Reason Start Date End Da te flash glucose sensor (FREESTYLE VIGNESH 2 SENSOR) kit 1 Device by misc (non-drug; combo route) route continuous. Reorder 10/01/2020 03/15/2022 SITagliptin (JANUVIA) 50 mg tablet Take 1 Tab by mouth daily. Reorder 09/02/2020 03/15/2022 documented as of this encounter Care Teams Mushroom Packer Relationship Specialty Start Date End Date Carrington Calderon MD [address] [facility] 1 [place] [address] PCP - General Internal Medicine - Primary Care 12/09/20 documented as of this encounter
--- OUTSIDE RECORDS SUMMARY | 2023-12-16 00:34 | XMS_ITS | Encounter Summary ---
Author Organization [facility] Address [address] [place] [address] Care Team Providers Care Implementation Analyst Name Role Phone Carrignton Calderon MD Primary Care Provi anders Reason for Visit * Reason Comments Medications Refill Encounter Details Date Type Department Care Team (Late st Contact Info) Description 02/28/2022 Refill [facility] Adult Primary Care [facility] 1 [place], [place] [phone] Kylah Weiner MD 1 [facility] Level 1 [place] [address] Medications Refill Social History Tobacco [...] slept in a halfway (including now)? No 01/13/2022 Interpersonal Safety Answer [...] Dispensed Refills Start Date End Da te omeprazole (PRILOSEC) 20 mg capsule Take 1 capsule by mouth daily. 90 capsule 3 03/02/2022 11/17/2022 documented in this encounter Miscellaneous Notes * Telephone Encounter - Jesi Love RN - 03/02/2022 0852 EDT Medication(s) Requested: omeprazole Preferred Pharmacy: [facility] Is patient out of medication? Unknown Last Refill Date: 01/26/21 Last Visit Date with Ordering Provider: 01/29/22 Next Non-Acute Visit Date Scheduled with Care Team: 04/01/2022 JESI LOVE RN 03/02/2022 8:53 documented in this encounter Plan of Treatment Upcoming Encounters Date Type Department Care Team (Late st Contact Info) Description 02/21/2024 9:45 EDT Office Visit [facility] Adult Primary Care - [address] [phone] Carrington Calderon MD 1 [facility] 1 [place] [address] 02/27/2024 8:30 EDT Telemedicine [facility] Sleep Program - [address] [phone] Rn, Sleep 02/29/2024 10:[address] [facility] Radiology Nuclear Medicine and PET - [address] [phone] 02/29/2024 14:[address] [facility] Radiology Nuclear Medicine and PET - [address] [phone] 03/01/2024 8:[address] [facility] Radiology Nuclear Medicine and PET - [address] [address] 03/01/2024 9:[address] [facility] Radiology Nuclear Medicine and PET - [address] [address] documented as of this encounter Visit Diagnoses Not on filedocumented in this encounter Discontinued Medications Medication Sig Discontinue Reason Start Date End Da te omeprazole (PRILOSEC) 20 mg capsule Take 1 capsule by mouth daily. 01/26/2021 03/02/2022 documented as of this encounter Care Teams Implementation Analyst Relationship Specialty Start Date End Date Carrington Calderon MD [address] [facility] 1 [place] [address] PCP - General Internal Medicine - Primary Care 12/09/20 documented as of this encounter
--- OUTSIDE RECORDS SUMMARY | 2023-12-16 00:34 | XMS_ITS | Encounter Summary ---
Author Organization [facility] Address [address] [place] [address] Care Team Providers Care Review Manager Name Role Phone Carrington Calderon MD Primary Care Provi anders Reason for Visit * Reason Onset Date Comments Medication Problem 01/14/2022 Encounter Details Date Type Department Care Team (Late st Contact Info) Description 01/14/2022 Telephone [facility] Adult Primary Care [facility] 1 [place], [place] [address] Carrington Calderon MD 1 [facility] Level 1 [place] [address] Medication Problem Social History Tobacco Use Types Packs/Day Years [...] slept in a jail (including now)? No 01/13/2022 Interpersonal Safety Answer [...] * Telephone Encounter - Karen Trujillo - 01/15/2022 0636 EDT Call to Luda MCINTYRE with Dx code M54.50, G89.29. * Telephone Encounter - Kamini Raya - 01/14/2022 1556 EDT [facility]on Pharmacist-Deonna called in regards to prescription for Tramadol sent 01/12/2022. She needs a diagnosis code before they can fill script. documented in this encounter Plan of Treatment Upcoming Encounters Date Type Department Care Team (Late st Contact Info) Description 02/21/2024 9:45 EDT Office Visit [facility] Adult Primary Care - [address] [phone] Carrington Calderon MD [address] [phone] 02/27/2024 8:30 EDT Telemedicine [facility] Sleep Program - [address] [phone] Rn, Sleep 02/29/2024 10:30 EDT Appointment [facility] Radiology Nuclear Medicine and PET - [address] [id number] 02/29/2024 14:30 EDT Appointment [facility] Radiology Nuclear Medicine and PET - [address] [phone] 03/01/2024 8:00 EDT Appointment [facility] Radiology Nuclear Medicine and PET - [address] [phone] 03/01/2024 9:30 EDT Appointment [facility] Radiology Nuclear Medicine and PET - [address] [id number] documented as of this encounter Visit Diagnoses Not on filedocumented in this encounter Care Teams Review Manager Relationship Specialty Start Date End Date Carrington Calderon MD 1 [facility] 1 [place] [address] PCP - General Internal Medicine - Primary Care 12/09/20 documented as of this encounter
--- OUTSIDE RECORDS SUMMARY | 2023-12-16 00:34 | XMS_ITS | Encounter Summary ---
Author Organization [facility] Address [address] [place] [address] Care Team Providers Care Spd Manager Name Role Phone Carrington Calderon MD Primary Care Provi anders Reason for Visit * Reason Onset Date Comments Medications Refill 01/11/2022 Encounter Details Date Type Department Care Team (Late st Contact Info) Description 01/11/2022 Refill [facility] Adult Primary Care [address] [phone] Carrington Calderon MD 1 [employer] Level 1 [place] [address] Medications Refill Social History Tobacco [...] End Da te traMADol (ULTRAM) 50 mg tablet TAKE 1 TABLET BY MOUTH EVERY 6 HOURS NEEDED FOR PAIN - DAILY MAX 4 TABLETS (200MG) 30 Tablet 01/12/2022 01/29/2022 flash glucose sensor (FREESTYLE FLORA 14 DAY SENSOR) kit Inject 1 Kit into the skin every 14 days. 6 Kit 3 01/11/2022 01/29/2022 documented in this encounter Miscellaneous Notes * Telephone Encounter - Nichole Márquez - 01/12/2022 0918 EDT Patient scheduled to see Dr Calderon 8.26.22 @ 11:00 * Telephone Encounter - Arturo Lea MD MPH - 01/12/2022 0749 EDT Patient needs to see Dr. Calderon every 3 months to get refills of tramadol Last seen in June by him. I will refill since she got a physical with a resident in December * Telephone Encounter - Karen Trujillo - 01/11/2022 1021 EDT Medication(s) Requested: Tramadol, Free Style Nissa sensor Preferred Pharmacy: [facility] Is patient out of medication? Yes Last Refill Date: 10/01/2020, 12/04/2021 Last Visit Date with Ordering Provider: 12/21/2021 Next Non-Acute Visit Date Scheduled with Care Team: No. Karen Trujillo 01/11/2022 10:22 documented in this encounter Plan of Treatment Upcoming Encounters Date Type Department Care Team (Late st Contact Info) Description 02/21/2024 9:45 EDT Office Visit [facility] Adult Primary Care - [address] [phone] Carrington Calderon MD [address] [phone] 02/27/2024 8:30 EDT Telemedicine [facility] Sleep Program - [address] [phone] Rn, Sleep 02/29/2024 10:30 EDT Appointment [facility] Radiology Nuclear Medicine and PET [address] [phone] 02/29/2024 14:30 EDT Appointment [facility] Radiology Nuclear Medicine and PET [address] [id number] 03/01/2024 8:00 EDT Appointment [facility] Radiology Nuclear Medicine and PET [address] [id number] 03/01/2024 9:30 EDT Appointment [facility] Radiology Nuclear Medicine and PET [address] [phone] documented as of this encounter Visit Diagnoses Not on filedocumented in this encounter Discontinued Medications Medication Sig Discontinue Reason Start Date End Da te traMADol (ULTRAM) 50 mg tablet TAKE 1 TABLET BY MOUTH EVERY 6 HOURS NEEDED FOR PAIN - DAILY MAX 4 TABLETS (200MG) Reorder 12/04/2021 01/11/2022 documented as of this encounter Care Teams Spd Manager Relationship Specialty Start Date End Date Carrington Calderon MD [address] [place] [phone] PCP - General Internal Medicine - Primary Care 12/09/20 documented as of this encounter
--- OUTSIDE RECORDS SUMMARY | 2023-12-16 00:34 | XMS_ITS | Encounter Summary ---
Author Organization [facility] Address [address] [place] [address] Care Team Providers Care Psychologist Military Personnel Name Role Phone Carrington Calderon MD Primary Care Provi anders Reason for Visit * Reason Comments Medications Refill Encounter Details Date Type Department Care Team (Late st Contact Info) Description 10/15/[address] [facility] Adult Primary Care [facility] 1 [place], [place] [phone] Carrington Calderon MD 1 [facility] Level 1 [place] [phone] Medications Refill Social History Tobacco [...] slept in a intermediate (including now)? No 01/13/2022 Interpersonal Safety Answer [...] associated with type 2 diabetes mellitus (HCC-CMS) TAKE 1 CAPSULE BY MOUTH IN THE MORNING AND 3 IN THE EVENING 120 Capsule 10/15/2022 11/17/2022 documented in this encounter Miscellaneous Notes * Telephone Encounter - Cortney Juarez RN - 10/15/2022 1331 EDT Medication(s) Requested: Gabapentin 300 mg Preferred Pharmacy: [facility] Is patient out of medication? unknown Last Refill Date: 08/25/21 Last Visit Date: 09/02/22 Next Non-Acute Visit Date Scheduled with Care Team: 11/17/22 CORTNEY JUAREZ RN 10/15/2022 13:31 documented in this encounter Plan of Treatment Upcoming Encounters Date Type Department Care Team (Late st Contact Info) Description 02/21/2024 9:45 EDT Office Visit [facility] Adult Primary Care - [address] [phone] Carrington Calderon MD [address] [place] [address] 1 [place] [phone] 02/27/2024 8:30 EDT Telemedicine [facility] Sleep Program - [address] [phone] Rn, Sleep 02/29/2024 10:30 EDT Appointment [facility] Radiology Nuclear Medicine and PET - [address] [phone] 02/29/2024 14:30 EDT Appointment [facility] Radiology Nuclear Medicine and PET - [address] [phone] 03/01/2024 8:00 EDT Appointment [facility] Radiology Nuclear Medicine and PET - [address] [address] 03/01/2024 9:30 EDT Appointment [facility] Radiology Nuclear Medicine and PET - [address] [address] documented as of this encounter Visit Diagnoses Diagnosis Diabetic polyneuropathy associated with type 2 diabetes mellitus (HCC-CMS)- Primary documented in this encounter Discontinued Medications Medication Sig Discontinue Reason Start Date End Da te gabapentin (NEURONTIN) 300 mg capsuleIndications:Diabeti c polyneuropathy associated with type 2 diabetes mellitus (HCC-CMS) Take 300mg in the morning and 900mg in the evening 08/25/2021 10/15/2022 documented as of this encounter Care Teams Psychologist Military Personnel Relationship Specialty Start Date End Date Carrington Calderon MD 1 [facility] 1 [place] [phone] PCP - General Internal Medicine - Primary Care 12/09/20 documented as of this encounter
--- OUTSIDE RECORDS SUMMARY | 2023-12-16 00:34 | XMS_ITS | Encounter Summary ---
Author Organization [facility] Address [address] [place] [address] Care Team Providers Care Currency Exchange Specialist Name Role Phone Carrington Calderon MD Primary Care Provi anders Abigail Díaz Unavailable [phone] Carmelo Hendrickson Unavailable Unavailable Encounter Details Date Type Department Care Team (Late st Contact Info) Description 06/01/[address] [facility] Pathology & Laboratory Medicine - [facility] [address] [place] [address] Ester Gabriel [address] [facility] [address] [place] [address] Encounter for other general examination Social History Tobacco Use Types Packs/Day Years [...] slept in a residential (including now)? No 01/13/2022 Interpersonal Safety Answer [...] Description 02/21/2024 9:[address] [facility] Adult Primary Care - [address] [phone] Carrington Calderon MD [address] [place] [phone] 02/27/2024 8:[address] [facility] Sleep Program - [address] [address] Rn, Sleep 02/29/2024 10:30 EDT Appointment [facility] Radiology Nuclear Medicine and PET [address] [id number] 02/29/2024 14:30 EDT Appointment [facility] Radiology Nuclear Medicine and [address] [address] 03/01/2024 8:00 EDT Appointment [facility] Radiology Nuclear Medicine and [address] [id number] 03/01/2024 9:30 EDT Appointment [facility] Radiology Nuclear Medicine and PET [address] [phone] documented as of this encounter Procedures Procedure Name Priority Date/Time Associated Diagnosis Comments SURGICAL PATHOLOGY Today 05/28/2022 7: 50 EST Encounter for other general examination documented in this encounter Results * SURGICAL PATHOLOGY (05/28/2022 7:50 EST) Note to Patient The following pathology results have been interpreted by your pathologist and may be available to you before your health provider has had the opportunity to review them. Please allow time for your provider to receive these results and explore management options, if applicable. 06/15/2022 11:18 [facility] Final Diagnosis A. 3RD TOE, LEFT FOOT, ? DISTAL? , AMPUTATION: - Skin with ulceration and gangrenous necrosis. - Bone with remodeling changes and patchy chronic inflammation. See comment. 06/15/2022 11:18 [facility] Diagnosis Comment Overall, the findings are nonspecific but could be compatible with chronic osteomyelitis in the appropriate clinical setting. The disarticulation margin is grossly unremarkable. Histologic features diagnostic of acute osteomyelitis are not seen in the small business sales representative sections submitted. 06/15/2022 11:18 [facility] Attestation There was significant resident/fellow involvement in the diagnostic evaluation of this case. By the signature below, the attending physician certifies that they have personally conducted a gross and/or microscopic examination of the described specimens and rendered or confirmed the above diagnosis. 06/15/2022 11:18 [facility] at 1118 Clinical History Osteomyelitis 06/15/2022 11:18 [facility] Gross Description A. Received in formalin labelled with proper patient identification (initials Y, L) and 3rd left digit distal (toe) is a toe amputation (1.5 cm from proximal to distal x 2.0 cm from medial to lateral x 1.5 cm from dorsal to plantar), that has been disarticulated. On the distal surface there is a red-brown eschar. The underlying bone appears uninvolved. The eschar is 1.0 cm from the proximal soft tissue margin. There is no nail. The remaining skin is unremarkable. The bone at the proximal margin is smooth and white and the bone and soft tissue at the margin appear viable. The proximal margin is inked blue. Line Maintenance Supervisor sections are submitted following acid decalcification as follows: BLOCK SHIELDS A1- bone underlying eschar A2- proximal soft tissue margin Carrington Bravo MD 06/01/2022 15:00 06/15/2022 11:18 [facility] Resident/Cash w: Carrignton Bravo MD 06/15/2022 11:18 EST [facility] Performing Lab [facility] 11:18 EST [facility] Scanned Images 06/15/2022 11:18 EST [facility] Tissue TRAUMATIC AMPUTATION OF UPPER LIMB / Unknown 05/28/2022 7:50 EST 06/01/2022 8:27 EST Ester Tirado Harvey PATHOLOGY ORDERABLES [facility] [address] [place] [address] documented in this encounter Visit Diagnoses Diagnosis Encounter for other general examination documented in this encounter Care Teams Currency Exchange Specialist Relationship Specialty Start Date End Date Carrington Calderon MD 1 [facility] 1 [place] [address] PCP - General Internal Medicine - Primary Care 12/09/20 Abigail Díaz Commodity Industry Analyst 04/21/23 Carmelo Hendrickson Coordinator 12/01/23 documented as of this encounter
--- OUTSIDE RECORDS SUMMARY | 2023-12-16 00:34 | XMS_ITS | Encounter Summary ---
Author Organization [facility] Address [address] [place] [address] Care Team Providers Care Label Folder Name Role Phone Carrington Calderon MD Primary Care Provi anders Abigail Díaz Unavailable Carmelo Hendrickson Unavailable Unavailable Encounter Details Date Type Department Care Team (Late st Contact Info) Description 10/27/2022 Lab Requisition [facility] Pathology & Laboratory Medicine - [facility] [address] [place] [address] Dale Collier MD [address] [place] [address] [place] [id number] Nausea; Vomiting, unspecified Social History Tobacco Use Types Packs/Day Years [...] in a long term (including now)? No 01/13/2022 Interpersonal Safety Answer [...] Info) Description 02/21/2024 9:45 EDT Office Visit [facility] Adult Primary Care - [address] [phone] Carrington Calderon MD [address] [place] [phone] 02/27/2024 8:30 EDT Telemedicine [facility] Sleep Program - [address] [address] Rn, Sleep 02/29/2024 10:30 EDT Appointment [facility] Radiology Nuclear Medicine and PET [address] [phone] 02/29/2024 14:30 EDT Appointment [facility] Radiology Nuclear Medicine and PET [address] [address] 03/01/2024 8:00 EDT Appointment [facility] Radiology Nuclear Medicine and PET [address] [address] 03/01/2024 9:30 EDT Appointment [facility] Radiology Nuclear Medicine and PET [address] 047251 documented as of this encounter Procedures Procedure Name Priority Date/Time Associated Diagnosis Comments SURGICAL PATHOLOGY Today 10/27/2022 11 :15 EDT Nausea Vomiting, unspecified documented in this encounter Results * SURGICAL PATHOLOGY (10/27/2022 11:15 EDT) Note to Patient The following pathology results have been interpreted by your pathologist and may be available to you before your health provider has had the opportunity to review them. Please allow time for your provider to receive these results and explore management options, if applicable. 11/02/2022 17:09 [facility] Final Diagnosis A. DUODENUM, BIOPSY: - Enteric mucosa with no significant diagnostic abnormality. B. STOMACH, ANTRUM, BIOPSY: - Antral-type mucosa with chemical (reactive) gastropathy. C. GASTROESOPHAGEAL JUNCTION, BIOPSY: - Active esophagitis with ulcer. - GMS stain is negative for fungal hyphae within squamous epithelium. - Negative for viral cytopathic effect. - No pill fragments identified. - See comment. 11/02/2022 17:09 [facility] Diagnosis Comment Bathhouse Keeper slides of this case were reviewed at the gastrointestinal/[facility] intradepartmental consultation conference. (, KT, RW) 11/02/2022 17:09 [facility] Attestation By the signature below, the attending physician certifies that they have 1) personally conducted a gross and/or microscopic examination of the described specimen(s), and/or personally interpreted the results of laboratory testing of the described specimen(s), and 2) personally rendered or confirmed the above diagnosis. 11/02/2022 17:09 [facility] at 1709 Clinical History Nausea and vomiting, history of gastroparesis; duodenitis, esophagitis 11/02/2022 17:09 [facility] Gross Description A. Received in formalin labelled with proper patient identification (initials Y, E) and duodenum biopsy x1 is a colunga-pink tissue measuring 0.3 x 0.2 x 0.1 cm. Submitted intact in A1. B. Received in formalin labelled with proper patient identification (initials Y, E) and antrum biopsy x1 is a colunga-pink tissue measuring 0.4 x 0.3 x 0.1 cm. Submitted intact in B1. C. Received in formalin labelled with proper patient identification (initials Y, E) and GE junction biopsy x1 are 3 pink white tissues ranging in size from 0.2 x 0.1 x 0.1 cm up to 0.6 x 0.2 x 0.1 cm. Submitted intact in C1. EUNICE GEE(ASCP) 10/27/2022 18:08 11/02/2022 17:09 EDT [facility] Performing Lab [facility] 11/02/2022 17:09 EDT [facility] Scanned Images 11/02/2022 17:09 EDT [facility] Tissue ENTIRE ESOPHAGUS / Unknown 10/27/2022 11:15 EDT 10/27/2022 16:58 EDT Tissue specimen (specimen) STOMACH STRUCTURE / Unknown 10/27/2022 11:15 EDT 10/27/2022 16:58 EDT Tissue specimen (specimen) ESOPHAGEAL STRUCTURE / Unknown 10/27/2022 11:15 EDT 10/27/2022 16:58 EDT Dale Collier MD PATHOLOGY ORDERA DONALDO [facility] [address] [place] [address] documented in this encounter Visit Diagnoses Diagnosis Nausea Nausea alone Vomiting, unspecified documented in this encounter Care Teams Label Folder Relationship Specialty Start Date End Date Carrington Calderon MD 1 [facility] 1 [place] [address] PCP - General Internal Medicine - Primary Care 12/09/20 Abigail Díaz Tumbler Machine Operator Helper 04/21/23 Carmelo Hendrickson Coordinator 12/01/23 documented as of this encounter
--- OUTSIDE RECORDS SUMMARY | 2023-12-16 00:34 | XMS_ITS | Encounter Summary ---
Author Organization [facility] Address [address] [place] [address] Care Team Providers Care Senior Cytotechnologist Name Role Phone Carrington Calderon MD Primary Care Provi anders Reason for Visit * Reason Onset Date Comments Prior Auth, Medication 09/04/2022 Encounter Details Date Type Department Care Team (Late st Contact Info) Description 09/04/2022 Telephone [facility] Adult Primary Care [address] [phone] Carrington Calderon MD 1 [facility] Level [address] [place] [phone] Prior Auth, Medication Social History Tobacco [...] place to sleep or slept in a snf (including now)? No 01/13/2022 Interpersonal Safety Answer [...] * Telephone Encounter - Karen Trujillo - 09/04/2022 0902 EDT Authorized from August 05, 2022 to September 04, 2023 Patient notified. * Telephone Encounter - Karen Trujillo - 09/04/2022 0848 EDT lidocaine 5 % (LIDODERM) 5 % patch Place 1 Patch onto the skin daily. Patch(es) may remain in place for up to 12 hours in any 24-hour period. Dispense: 30 Patch Refills: 2 Group ID: [id number] Group name: [employer] BIN: [id number] PCN: PA has been completed via ePa Awaiting reply documented in this encounter Plan of Treatment Upcoming Encounters Date Type Department Care Team (Late st Contact Info) Description 02/21/2024 9:45 EDT Office Visit [facility] Adult Primary Care - [address] [phone] Carrington Calderon MD [address] [place] [phone] 02/27/2024 8:30 EDT Telemedicine [facility] Sleep Program - [address] [phone] Rn, Sleep 02/29/2024 10:30 EDT Appointment [facility] Radiology Nuclear Medicine and PET - [address] [phone] 02/29/2024 14:30 EDT Appointment [facility] Radiology Nuclear Medicine and PET - [address] [address] 03/01/2024 8:00 EDT Appointment [facility] Radiology Nuclear Medicine and PET [address] [address] 03/01/2024 9:30 EDT Appointment [facility] Radiology Nuclear Medicine and PET - [address] [address] documented as of this encounter Visit Diagnoses Not on filedocumented in this encounter Care Teams Senior Cytotechnologist Relationship Specialty Start Date End Date Carrington Calderon MD 1 [facility] 1 [place] [phone] PCP - General Internal Medicine - Primary Care 12/09/20 documented as of this encounter
--- OUTSIDE RECORDS SUMMARY | 2023-12-16 00:34 | XMS_ITS | Encounter Summary ---
Author Organization [facility] Address [address] [place] [address] Care Team Providers Care Clinical Medical Assistant Name Role Phone Carrington Calderon MD Primary Care Provi anders Abigail Díaz Unavailable Carmelo Hendrickson Unavailable Unavailable Reason for Visit * Reason Onset Date Comments Appointment Related 03/17/2022 Encounter Details Date Type Department Care Team (Late st Contact Info) Description 03/17/2022 Telephone [facility] Endocrinology - [facility] [address] [place] [address] Zulma Cross, GUSTAVO [address] [facility] [address] [place] [address] Appointment Related Social History Tobacco [...] in a skilled nursing (including now)? No 01/13/2022 Interpersonal Safety Answer Date Record ed How often does anyone, inclu chivo family, hit, punch or physically hurt you? Never 01/13/2022 How often does anyone, inclnick waldron family, [...] encounter Miscellaneous Notes * Telephone Encounter - Mica Gaona - 03/17/2022 1616 EDT Left voicemail to schedule 3 month Follow Up appointment with Zulma Cross NP Patient is due anytime after 06/16/22 Recall Letter Sent thru [facility] Also: Left voicemail to schedule 6 month Follow Up appointment with Dr. Eryn Mims Patient is due anytime after 09/14/22 Recall Letter Sent thru [employer] Please schedule both appointments documented in this encounter Plan of Treatment Upcoming Encounters Date Type Department Care Team (Late st Contact Info) Description 02/21/2024 9:45 EDT Office Visit [facility] Adult Primary Care - [address] [phone] Carrington Calderon MD [address] [place] [address] [address] [place] [phone] 02/27/2024 8:30 EDT Telemedicine [facility] Sleep Program - [address] [phone] Rn, Sleep 02/29/2024 10:30 EDT Appointment [facility] Radiology Nuclear Medicine and PET - [address] [phone] 02/29/2024 14:30 EDT Appointment [facility] Radiology Nuclear Medicine and PET - [address] [phone] 03/01/2024 8:00 EDT Appointment [facility] Radiology Nuclear Medicine and PET - [address] [address] 03/01/2024 9:30 EDT Appointment [facility] Radiology Nuclear Medicine and PET [address] [address] documented as of this encounter Visit Diagnoses Not on filedocumented in this encounter Care Teams Clinical Medical Assistant Relationship Specialty Start Date End Date Carrington Calderon MD 1 [facility] 1 [place] [phone] PCP - General Internal Medicine - Primary Care 12/09/20 Abigail Díaz Family Specialist 04/21/23 Carmelo Hendrickson Coordinator 12/01/23 documented as of this encounter
--- OUTSIDE RECORDS SUMMARY | 2023-12-16 00:34 | XMS_ITS | Encounter Summary ---
Author Organization [facility] Address [address] [place] [address] Care Team Providers Care Zone Manager Name Role Phone Carrington Calderon MD Primary Care Provi anders Reason for Referral * Consult (See Order Priority) - Specialty Report Received Specialty Diagnoses / Procedures Referred By Kit goode Referred To Contact Endocrinology Diagnoses Type 2 diabetes mellitus with diabetic polyneuropathy, with long-term current use of insulin ([facility]) Carrington Calderon MD [address] [place] [phone] [facility] [address] [place] [id number] Referral ID Status Reason Start Date Expiration Date Visits Requested Visits Authorized [id number] Specialty Report Received Specialty Services Required 01/29/2022 1 1 Question Answer Reason for Request: uncontrolled diabetes Reason for Visit * Reason Comments Medication Management Follow-up Encounter Details Date Type Department Care Team ([facility] st Contact Info) Description 01/29/2022 11:00 EDT Telemedicine [facility] Adult Primary Care - [address] [phone] Carrington Calderon MD [address] [phone] Gastroparesis (Primary Dx); Tobacco use; Type 2 diabetes mellitus with diabetic polyneuropathy, with long-term current use of insulin ([facility]) (HCC); Chronic midline low back pain without sciatica; Abdominal pannus Social History Tobacco Use Types Packs/Day Years [...] in a group home (including now)? No 01/13/2022 Interpersonal Safety Answer [...] Dispensed Refills Start Date End Da te nicotine (NICODERM CQ) 14 mg/24 hr patchIndications:Tobacc o use Apply one patch only daily on skin without hair. Apply to a different skin site at the same time each day. 42 Patch 01/29/2022 09/02/2022 nicotine (NICODERM CQ) 7 mg/24 hr patchIndications:Tobacc o use Apply one patch only daily on skin without hair. Apply to a different skin site at the same time each day. 14 Patch 01/29/2022 09/02/2022 traMADol (ULTRAM) 50 mg tabletIndications:Chron ic midline low back pain without sciatica Take 1 Tablet by mouth every 6 hours as needed for Pain. Daily Max: 200 mg 30 Tablet 5 01/29/2022 09/03/2022 insulin aspart U-100 (NOVOLOG FLEXPEN) 100 unit/mL (3 mL) injectable penIndications:type 2 diabetes mellitus,as needed with meals. Inject 12 Units into the skin 3 times daily with meals. 30 mL 2 01/29/2022 09/02/2022 nicotine (NICODERM CQ) 14 mg/24 hr patchIndications:Tobacc o use Apply one patch only daily on skin without hair. Apply to a different skin site at the same time each day. 14 Patch 01/29/2022 01/29/2022 flash glucose sensor (FREESTYLE MITUL 14 DAY SENSOR) kitIndications:Type 2 diabetes mellitus with diabetic polyneuropathy, with long-term current use of insulin ([facility]) Inject 1 Kit into the skin every 14 days. 6 Kit 3 01/29/2022 05/21/2022 documented in this encounter Progress Notes * Carrington Calderon MD - 01/29/2022 1100 EDT Primary Care Video Visit Assessment & Plan Diagnoses and all orders for this visit: Gastroparesis: Seems to be doing well with her nutritional supplement and present regimen. No change made today. Tobacco use: Discussed nicotine replacement. She plans to start taking the patch sometime soon. Sheis smoking under one half of a pack per day, and so the 14 mg patch is appropriate. She should use this for 6 weeks and then the 7 mg patch for 2 weeks and then stop. 3 minutes spent in counseling onthis issue. - nicotine (NICODERM CQ) 14 mg/24 hr patch Type 2 diabetes mellitus with diabetic polyneuropathy, with long-term current use of insulin ([facility]) ([facility]): Diabetes remains uncontrolled per her most recent A1C of 9.7. According to her description, I am concerned that an increase in her Lantus dose could lead to dangerous hypoglycemia. I asked that she post her freestyle mitul data on iRule for my review. She states that she will do this today. I would like to see Stella with greater frequency. I have suggested we make a number of every 8-week appointments in order to stay on top of her diabetes care until we are able to reach acceptable control. I have also placed a referral to endocrinology, since this remains uncontrolled. In the meantime, there seems to be enough evidence to suggest she could use better mealtime control, and so I recommended increasing her mealtime insulin from 9 units to 12 units 3 times per day with meals. - flash glucose sensor (FREESTYLE MITUL 14 DAY SENSOR) kit - insulin aspart U-100 (NOVOLOG FLEXPEN) 100 unit/mL (3 mL) injectable pen - AMB CONS/FOLLOW UP ENDOCRINOLOGY Chronic midline low back pain without sciatica: Counseled on the importance of maintaining every 12-week appointments since she takes a controlled substance. Refilled today. She has not been able to get the x-rays that I ordered, stating that these were evidently not in the system when she attempted to go at [facility]. I have asked my staff to follow-up on this. - traMADol (ULTRAM) 50 mg tablet Abdominal pannus: I reviewed the referral. She does not meet a number of the internal requirements as outlined below. Will need to prioritize diabetes control first, and then consider intervention. - BMI of 33 or under - At least 100lbs weight loss - Two failed ten-day courses of antibiotics to treat yeast infections/skin breakdown between folds - Pannus hangs below pubis - A1C below 6.8 if diabetic - Non-nicotine user in any form including replacement therapy Return for q8 week appointments x 4. Patient education was direct. Barriers were assessed and addressed as needed. Subjective Stella is a 36 y.o. female presenting with Medication Management and Follow-up HPI I saw Stella for the first time in early June of this year. At the time, she described improved glycemic control. I recommended blood work including hemoglobin A1c. I also made some recommendations for reduction of suppressive treatment for gastroparesis symptoms. She was seen in September in [facility] emergency department for diabetic foot infection. She was referred to podiatry, and saw Letty Barahona September 17. Offloading was recommended, as well as topical antibiotic. She saw Dr. Scott Vásquez in gastroenterology in October, where it was recommended she continue to wean down Reglan, and she was referred to nutrition. Lastly, it was suggested that she pursue better anxiety control in order to possibly reduce her eliminate her need for marijuana use, which could contribute to nausea symptoms. She was seen in resident clinic last month, where she opted to pursue seeing a therapist rather than medication for her anxiety. Today: Stella reports that the toe infection for which she was treated in September resolved over time. She was seen for a gastroparesis flare in October, where it was noticed that a different toe was infected. She was referred to a surveillance systems analyst up in the [facility] and was treated with topical and oral antibiotics. She was found eventually to have osteomyelitis in the distal phalanx and underwent partial toeamputation 2 weeks ago. She reports that her glucose tends to be very high in the morning when she first wakes up, and thenthe number drops, sometimes to below 100, without any administration of insulin. She had another gastroparesis flare in December and was recommended to use a nutritional supplement for breakfast and lunch rather than solid food, in order to reduce gastroparesis symptoms. Stella has not heard from the plastic surgery department for pannus removal. She notes significant panus associated with weight loss (has lost > 300 lbs on her own). She smokes 10 or fewer cigarettes per day. Data reviewed this visit: problem list/past medical history, current medications, allergies, last visit note, health maintenance items, recent labs and recent specialist documentation ROS - See HPI Objective There were no vitals taken for this visit. Physical Exam documented in this encounter Plan of Treatment Upcoming Encounters Date Type Department Care Team (Late st Contact Info) Description 02/21/2024 9:45 EDT Office Visit [facility] Adult Primary Care - [address] [phone] Carrington Calderon MD [address] [place] [address] [address] [place] [phone] 02/27/2024 8:30 EDT Telemedicine [facility] Sleep Program - [address] [phone] Rn, Sleep 02/29/2024 10:30 EDT Appointment [facility] Radiology Nuclear Medicine and PET - [address] [phone] 02/29/2024 14:30 EDT Appointment [facility] Radiology Nuclear Medicine and PET - [address] [phone] 03/01/2024 8:00 EDT Appointment [facility] Radiology Nuclear Medicine and PET [address] [address] 03/01/2024 9:30 EDT Appointment [facility] Radiology Nuclear Medicine and PET [address] [phone] Scheduled Referrals Name Type Priority Associated Diagnoses Order Schedule AMB CONS/FOLLOW UP ENDOCRINOLOGY Outpatient Referral Routine/Next Available Type 2 diabetes mellitus with diabetic polyneuropathy, with long-term current use of insulin ([facility]) ([facility]) Expected: 02/05/2022 (Approximate), Expires: 01/29/2023 documented as of this encounter Visit Diagnoses Diagnosis Gastroparesis- Primary Tobacco use Tobacco use disorder Type 2 diabetes mellitus with diabetic polyneuropathy, with long-term current use of insulin ([facility]) Chronic midline low back pain without sciatica Abdominal pannus Localized adiposity documented in this encounter Discontinued Medications Medication Sig Discontinue Reason Start Date End Da te Miscellaneous Medication - See Admin Instructions Dispense one lancing device, generic brand as covered by insurance. 10/07/2020 01/29/2022 insulin aspart U-100 (NOVOLOG FLEXPEN) 100 unit/mL (3 mL) injectable penIndications:type 2 diabetes mellitus,as needed with meals. Inject 9 Units into the skin 3 times daily with meals. 12/21/2021 01/29/2022 nicotine (NICODERM CQ) 14 mg/24 hr patchIndications:Tobacco use Apply one patch only daily on skin without hair. Apply to a different skin site at the same time each day. Reorder 12/21/2021 01/29/2022 flash glucose sensor (FREESTYLE MITUL 14 DAY SENSOR) kit Inject 1 Kit into the skin every 14 days. Reorder 01/11/2022 01/29/2022 traMADol (ULTRAM) 50 mg tablet TAKE 1 TABLET BY MOUTH EVERY 6 HOURS NEEDED FOR PAIN - DAILY MAX 4 TABLETS (200MG) Reorder 01/12/2022 01/29/2022 nicotine (NICODERM CQ) 14 mg/24 hr patchIndications:Tobacco use Apply one patch only daily on skin without hair. Apply to a different skin site at the same time each day. 01/29/2022 01/29/2022 documented as of this encounter Care Teams Zone Manager Relationship Specialty Start Date End Date Carrington Calderon MD 1 [facility] [address] [place] [phone] PCP - General Internal Medicine - Primary Care 12/09/20 documented as of this encounter
--- OUTSIDE RECORDS SUMMARY | 2023-12-16 00:34 | XMS_ITS | Encounter Summary ---
Author Organization [facility] Address [address] [place] [address] Care Team Providers Care Children'S Entertainer Name Role Phone Carrington Calderon MD Primary Care Provi anders Reason for Visit * (Routine/Next Available) - Receiving Office to Obtain Authorization Specialty Diagnoses / Procedures Referred By Kit goode Referred To Contact Procedures XR OUTSIDE IMAGES NEURO Imaging, External Referral ID Status Reason Start Date Expiration Date Visits Requested Visits Authorized [id number] Receiving Office to Obtain Authorization 2 1 1 Encounter Details Date Type Department Care Team (Latest Contact Info) Description 03/18/2022 - 03/18/2022 23:59 EDT Hospital Encounter [facility] Secondary Reads [place] Discharge Disposition: Home or Self Care Social [...] 4 hours as needed for Pain. 08/20/2020 blood glucose meterIndications:Type 2 diabetes mellitus with diabetic polyneuropathy, with long-term current use of insulin ([facility]) One Touch Verio Flex meter. 1 Each 12/21/2021 06/27/2023 blood glucose test strips Brand: Appetizer MobileStyle Precision Cristo, use as directed if Freestyle Vignesh censor isnt working 100 Each 3 10/06/2020 06/27/2023 blood glucose test strips One Touch Verio IQ or other brand compatible with meter and covered by patient's insurance. Testing QID. 100 Each 5 08/11/2020 06/27/2023 flash glucose scanning reader (FREESTYLE VIGNESH 2 READER) misc 1 Device by misc (non-drug; combo route) route continuous. 1 Each 10/01/2020 05/21/2022 flash glucose sensor (FREESTYLE VIGNESH 14 DAY SENSOR) kitIndications:Type 2 diabetes mellitus with diabetic polyneuropathy, with long-term current use of insulin ([facility]) Inject 1 Kit into the skin every 14 days. 6 Kit 3 01/29/2022 05/21/2022 flash glucose sensor (FREESTYLE VIGNESH 2 SENSOR) kit 1 Device by misc (non-drug; combo route) route continuous. 6 Kit 3 03/15/2022 05/21/2022 gabapentin (NEURONTIN) 300 mg capsuleIndications:Di abetic polyneuropathy associated with type 2 diabetes mellitus ([facility]) Take 300mg in the morning and 900mg in the evening 120 capsule 11 08/25/2021 10/15/2022 insulin aspart U-100 (NOVOLOG FLEXPEN) 100 unit/mL (3 mL) injectable penIndications:type 2 diabetes mellitus,as needed with meals. Inject 12 Units into the skin 3 times daily with meals. 30 mL 2 01/29/2022 09/02/2022 insulin glargine (LANTUS SOLOSTAR/SEMGLEE) 100 unit/mL (3 mL) injection penIndications:Type 2 diabetes mellitus with diabetic polyneuropathy, with long-term current use of insulin ([facility]) Inject 40 Units into the skin at bedtime for 90 days. 36 mL 4 12/21/2021 11/17/2022 insulin pen needles 31G x 5/16Indications:Type 2 diabetes mellitus with hyperglycemia, with long-term current use of insulin ([facility]) Use 1 pen needle as directed 4 times daily. 400 Each 2 09/02/2020 03/16/2023 lancets Brand: Freestyle, use as directed if Freestyle Vignesh censor isnt working 100 Each 3 10/06/2020 03/16/2023 lancets One Touch Delica or other brand compatible with lancing device and covered by patient's insurance. 100 Each 5 10/01/2020 03/16/2023 lidocaine 5 % (LIDODERM) 5 % patchIndications:Cook Helper Pastry gordo midline low back pain without sciatica Place 1 Patch onto the skin daily. Patch(es) may remain in place for up to 12 hours in any 24-hour period. 30 Patch 12/21/2021 09/02/2022 LORazepam (ATIVAN) 0.5 mg tabletIndications:Anx iety Take 1 Tablet by mouth daily as needed for Anxiety. Daily Max: 0.5 mg 30 Tablet 3 10/30/2021 11/17/2022 metoclopramide HCl (REGLAN) 10 mg tablet Take 1 Tablet by mouth 3 times daily before meals. 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 Apply to a different skin site at the same time each day. 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 Apply to a different skin site at the same time each day. 14 Patch 01/29/2022 09/02/2022 nystatin (MYCOSTATIN) creamIndications:Skin infection Apply to area under abdominal/groin skin twice daily 30 g 12/21/2021 03/16/2023 omeprazole (PRILOSEC) 20 mg capsule Take 1 capsule by mouth daily. 90 capsule 3 03/02/2022 11/17/2022 ondansetron (ZOFRAN-ODT) 4 mg disintegrating tabletIndications:Gas troparesis Take 1 Tablet by mouth every 8 hours as needed for Nausea. 30 Tablet 11 12/21/2021 11/17/2022 prochlorperazine (COMPAZINE) 25 mg suppositoryIndication s:Gastroparesis Place 1 Suppository rectally every 12 hours as needed for Nausea. 6 Suppository 12/21/2021 12/17/2022 SITagliptin (JANUVIA) 50 mg tablet Take 1 Tablet by mouth daily. 90 Tablet 3 03/15/2022 11/17/2022 TENS unit and electrodes combo pack 1 Each by misc (non-drug; combo route) route daily. 1 Each 08/01/2020 05/21/2022 traMADol (ULTRAM) 50 mg tabletIndications:Chr onic midline low back pain without sciatica Take 1 Tablet by mouth every 6 hours as needed for Pain. Daily Max: 200 mg 30 Tablet 5 01/29/2022 09/03/2022 documented as of this encounter Discharge Disposition Disposition Code Departure Means Destination Home or Self Care documented in this encounter Plan of Treatment Upcoming Encounters Date Type Department Care Team (Late st Contact Info) Description 02/21/2024 9:45 EDT Office Visit [facility] Adult Primary Care - [address] [phone] Carrington Claderon MD [address] [phone] 02/27/2024 8:30 EDT Telemedicine [facility] Sleep Program - [address] [phone] Rn, Sleep 02/29/2024 10:30 ED[facility] - [address] [phone] 02/29/2024 14:30 EDT Appointment [facility] Radiology Nuclear Medicine and PET [address] [address] 03/01/2024 8:00 EDT Appointment [facility] Radiology Nuclear Medicine and PET [address] [address] 03/01/2024 9:30 EDT Appointment [facility] Radiology Nuclear Medicine and PET [address] [phone] documented as of this encounter Procedures Procedure Name Priority Date/Time Associated Diagnosis Comments XR OUTSIDE IMAGES NEURO Routine 03/18/2022 8:25 EDT documented in this encounter Results * XR OUTSIDE IMAGES NEURO (03/18/2022 8:25 EDT) Narrative 03/19/2022 8:25 EDT This is a non-reportable exam. External Imaging IMG OTHER IMAGING OR DERABLES documented in this encounter Visit Diagnoses Not on filedocumented in this encounter Care Teams Children'S Entertainer Relationship Specialty Start Date End Date Carrington Calderon MD 1 [facility] [address] [place] [phone] PCP - General Internal Medicine - Primary Care 12/09/20 documented as of this encounter
--- OUTSIDE RECORDS SUMMARY | 2023-12-16 00:34 | XMS_ITS | Encounter Summary ---
Author Organization [facility] Address [address] [place] [address] Care Team Providers Care Physical Sciences Professor Name Role Phone Carrington Calderon MD Primary Care Provi anders Reason for Visit * Reason Comments Pre-op Exam Toe amputation Encounter Details Date Type Department Care Team (Late st Contact Info) Description 05/20/2022 13:45 EST Office Visit [facility] Adult Primary Care - [address] [place], [place] [id number] Rachel Stein PA-C 1 [facility] [address] [place] [address] Type 2 diabetes mellitus with diabetic polyneuropathy, with long-term current use of insulin ([facility]) (Primary Dx); Preop examination Social History Tobacco Use Types Packs/Day [...] slept in a ch[facility] (including now)? No 01/13/2022 Interpersonal Safety Answer [...] Sign Reading Time Taken Comments Blood Pressure 112/80 05/20/2022 1351 EST Pulse 120 05/20/2022 1351 EST Temperature 35.9 ??C (96.6 ??F) 05/20/2022 1351 EST Respiratory Rate 18 05/20/2022 1351 EST Oxygen Saturation - - Inhaled Oxygen Concentration - - Weight 91.6 kg (202 lb) 05/20/2022 1351 EST Height - - Body Mass Index 34.66 10/09/2021 1127 EDT documented in this encounter Functional Status [...] No 10/02/2020 documented as of this encounter Patient Instructions * Patient Instructions* Rachel Stein PA-C - 05/20/2022 13:45 EST acetaminophen (TYLENOL) 325 mg tablet Continue gabapentin (NEURONTIN) 300 mg capsule Continue insulin aspart U-100 (NOVOLOG FLEXPEN) 100 unit/mL (3 mL) injectable pen Night before surgery: Takenormal amount the evening prior (will be 12U) Morning of surgery: Hold the morning of surgery insulin glargine (LANTUS SOLOSTAR/SEMGLEE) 100 unit/mL (3 mL) injection pen Night before surgery: 80% usual dose the evening prior to surgery- eat dinner as instructed otherwise by surgeon- This would be 32U the night before surgery. Morning of surgery- Following fasting instructions with 80% of usual dose (32U) lidocaine 5 % (LIDODERM) 5 % patch Continue LORazepam (ATIVAN) 0.5 mg tablet Continue metoclopramide HCl (REGLAN) 10 mg tablet Hold nicotine (NICODERM CQ) 14 mg/24 hr patch Continue nicotine (NICODERM CQ) 7 mg/24 hr patch Continue omeprazole (PRILOSEC) 20 mg capsule Continue ondansetron (ZOFRAN-ODT) 4 mg disintegrating tablet Continue SITagliptin (JANUVIA) 50 mg tablet Hold januvia the day of surgery traMADol (ULTRAM) 50 mg tablet Continue Pre Operative Advice All Surgery Has Risk of Complications Besides the specific details of your surgical problem, which were discussed with you verbally, there is another set factors that you must consider before agreeing to undergo a surgical procedure. We call these factors complications. They are rare and probably will have no effect on you or your surgery. However, due to the fact that it is impossible to predict who will develop complications, or to prevent their occasional occurrence, you must be aware of the relative risk that they add to yoursurgery. Infection Infection following elective ioen surgery of the joints is rare. In open surgery, it is approximately 1:500. In arthroscopic procedures, it is more in the range of 1:5000. Even when they develop, most infections can be controlled with little or no adverse effect on the ultimate result. However, if an infection develops, the hospitalization may need to be longer than originally planned. The required treatment may consist of antibiotics, and in a few cases, may even require re-opening of the surgical wound. Needless to say, this can be an alarming experience for anyone. More rarely, a severe post-operative infection in a joint could lead to complete failure of the surgery. In a worse case scenario, the organism (infection) might not respond to the antibiotics, which could lead to destruction of the joint or even loss of the limb. Such infections are extremely rare, but they do occur. Fortunately, most infections do not result in any significant alteration in outcome. Blood Clots Thrombophlebitits (blood clot in the vein) occurs relatively rarely following extremity surgery. However, it can occur even with relatively minor surgery to the joints or bones in the arms or legs. If the clot remains local in the arm or leg vein, it can produce swelling of the involved limb, alongwith pain and an elevated temperature. If the clot remains in the vein, this problem is usually short lived and reversible. However, if a piece of the clot breaks free within the vein, and migrates back up to lodge in the heart or lung, the flow of blood around the clot becomes impossible. If the clot is large enough, theflow of blood through the heart or lung will then stop. Understandably, this is a life-threatening situation. Usually, when an embolism or clot occurs, it is small enough to clog up only relatively small arteries. In such cases, although symptoms of chest pain, cough, or shortness of breath occur, the effects are not permanent and normal health can be restored. If a clot is discovered in a vein of an extremity, we will promptly administer medication to anti-coagulate (thin your blood), so that the clot does not break off and present a risk to the heart or lung. Drug Reactions Drug Reactions also occur as a complication of surgery. Needless to say, if you have a known allergy to a specific drug, this drug will not be given to you. However, it is possible to become allergicto any drug at any time. You may also encounter drugs during your surgery that you have never had before, which could produce an allergic reaction. Most allergies are not dangerous, producing nausea,vomiting, or skin reactions, which clear quickly when the drug eliminated. However, some drug reactions can be devastating to various body organs, such as liver or kidneys, and produce extremely grave illness. The chance of catastrophic drug reaction is extremely rare, probably in the range of 1:100,000. Avoid taking ibuprofen or aspirin at least three days before your procedure unless directed otherwise. * Attachments The following attachments cannot be sent through Care Everywhere. * Surgery Prep: General Info (Wallisian) documented in this encounter Progress Notes * Rachel Stein PA-C - 05/20/2022 9407 EST Subjective: Cristy Luo is a 37 y.o. female who presents to the office today for a preoperative consultation at the request of Dr. Ester Gabriel, who will perform a L third [facility] [place]. Current Complaints: Failure of IV abx [place] SURGEON: Dr. Prudence Gabriel PROCEDURE: toe amputation [phone] Office name: [facility] Prior h/o of anesthetic complications: denies Prior h/o bleeding problems: denies Prior h/o DVT/PE: Denies Family history of anesthetic complications, bleeding problems or DVT/PE: none, no prior anesthetic complications Cardiovascular or pulmonary risk factors: DM Daytime glucose runs between 90-155 per patient report. She feels well today, denies chest pain, difficulty breathing, shortness of breath. Denies exertionCP or SOB. Denies fevers, chills, nausea, vomiting. Reports loose stool associated from IV abx course, denies profuse diarrhea, abdominal pain. Past Medical History: Diagnosis Date ??? Abnormal [...] has a referral for therapy. ??? Diabetes ([facility]) A1c 10.3 on 11/28/2019 - poorly controlled ??? Diabetes mellitus, type 2 ([facility]) pt check blood sugars at home- [...] occasionally ??? Neuropathic diabetic ulcer of foot ([facility]) 09/17/2021 ??? Obesity, unspecified ??? Osteomyelitis ([facility]) of left great toe-s/p amputation ??? Peripheral neuropathy 08/12/20- Bilateral feet-Takes Gabapentin- pt just started this med. ??? Productive cough pt currently quitting smoking- clear secretions. ??? Spontaneous miscarriage 09/04/201502/18, 08/19. Followed by Dr. L[facility] Family History Problem Relation Age of Onset ??? Cancer Maternal Grandmother Breast ??? Diabetes Paternal Grandmother ??? Diabetes Maternal Aunt ??? Diabetes Paternal Aunt ??? Diabetes Paternal Uncle Current Outpatient Medications Medication Sig Dispense Refill ??? acetaminophen (TYLENOL) 325 mg tablet Take 2 Tabs by mouth every 4 hours as needed for Pain. ??? blood glucose meter One Touch Verio Flex meter. 1 Each 0 ??? blood glucose test strips Brand: FreeStyle Precision Cristo, use as directed if Freestyle Vignesh censor isnt working 100 Each 3 ??? blood glucose test strips One Touch Verio IQ or other brand compatible with meter and covered by patient's insurance. Testing QID. 100 Each 5 ??? gabapentin (NEURONTIN) 300 mg capsule Take [...] daily. 400 Each 2 ??? lancets Brand: VivaRay, use as directed if Freestyle Vignesh censor isnt working 100 Each 3 ??? lancets One Touch Delica or other brand compatible with lancing device and covered by patient'sinsurance. 100 Each 5 ??? lidocaine 5 % [...] abdominal/groin skin twice daily (Patient not taking: No sig reported) 30 g 0 ??? omeprazole (PRILOSEC) 20 [...] Tablet by mouth daily. 90 Tablet 3 ??? traMADol (ULTRAM) 50 mg tablet Take 1 Tablet by mouth every 6 hours as needed for Pain. Daily Max: 200 mg 30 Tablet 5 No current facility-administered medications for this visit. Allergies Allergen Reactions ??? Citalopram Other (See Comments) suicidal ideation, approx 2012 ??? Other - See Comments Swelling of throat pomergrante ??? Advil [Ibuprofen] Hives Social History Socioeconomic History ??? Marital status: Spouse name: Fermin Luo ??? Number of children: Not on file ??? Years of education: Not on file ??? Highest education level: Not on file Occupational History ??? Not on file Tobacco Use ??? Smoking status: Former Packs/day: 0.25 Years: 10.00 Pack years: 2.50 Types: Cigarettes Start date: 11/10/2010 ??? Smokeless tobacco: Never ??? Tobacco comments: 06/13/20 actively trying to quit about 5-8 cigs/day Substance and Sexual Activity ??? Alcohol use: Yes Comment: rarely ??? Drug use: Yes Types: Marijuana Comment: 1X/DAY FOR ANXIETY ??? Sexual activity: Yes Partners: Male Other Topics Concern ??? Not on file Social History Narrative ??? Not on file Social Determinants of Health Financial Resource Strain: Low Risk ??? Difficulty of Paying Living Expenses: Not hard at all Food Insecurity: No Food Insecurity ??? Worried About Running Out of Food in the Last Year: Never true ??? Ran Out of Food in the Last Year: Never true Transportation Needs: No Transportation Needs ??? Lack of Transportation (Medical): No ??? Lack of Transportation (Non-Medical): No Physical Activity: Not on file Stress: Not on file Social Connections: Not on file Housing Stability: Unknown ??? Unable to Pay for Housing in the Last Year: Not on file ??? Number of Places Lived in the Last Year: Not on file ??? Unstable Housing in the Last Year: No Review of Systems A ten point review of systems was performed and was negative except for pertinent positives noted in the HPI Objective: General appearance: alert Head: Normocephalic, without obvious abnormality, atraumatic Eyes: conjunctivae/corneas clear. PERRL, EOM's intact. Fundi benign Throat/Mouth: normal findings: lips normal without lesions, buccal mucosa normal, palate normal, tongue midline and normal and soft palate, uvula, and tonsils normal and lips, mucosa, and tongue normal; teeth and gums normal Neck: supple, symmetrical, trachea midline and no adenopathy Lungs: clear to auscultation bilaterally, non labored breathing Heart: regular rate and rhythm, S1, S2 normal, no murmur, click, rub or gallop Neurologic: Grossly normal Pulses: 2+ and symmetric Assessment: 1. Type 2 diabetes mellitus with diabetic polyneuropathy, with long-term current use of insulin ([facility]) ([facility]) 2. Preop examination No contraindications to planned surgery Plan: Patient requires endocarditis prophylaxis: no. Recommend perioperative beta-heather: no. Proceed with surgery as planned. Sinus tachycardia on EKG, she has history of tachycardia in the clinic during prior visits. She reports being very anxious in medical offices. Denies chest pain, SOB, dizziness. I discussed with endocrinology to verify that dosage of insulin are correct. acetaminophen (TYLENOL) 325 mg tablet Continue gabapentin (NEURONTIN) 300 mg capsule Continue insulin aspart U-100 (NOVOLOG FLEXPEN) 100 unit/mL (3 mL) injectable pen Night before surgery: Takenormal amount the evening prior (will be 12U) Morning of surgery: Hold the morning of surgery insulin glargine (LANTUS SOLOSTAR/SEMGLEE) 100 unit/mL (3 mL) injection pen Night before surgery: 80% usual dose the evening prior to surgery- eat dinner as instructed otherwise by surgeon- This would be 32U the night before surgery. Morning of surgery- Following fasting instructions with 80% of usual dose (32U) lidocaine 5 % (LIDODERM) 5 % patch Continue LORazepam (ATIVAN) 0.5 mg tablet Continue metoclopramide HCl (REGLAN) 10 mg tablet Hold nicotine (NICODERM CQ) 14 mg/24 hr patch Continue nicotine (NICODERM CQ) 7 mg/24 hr patch Continue omeprazole (PRILOSEC) 20 mg capsule Continue ondansetron (ZOFRAN-ODT) 4 mg disintegrating tablet Continue SITagliptin (JANUVIA) 50 mg tablet Hold januvia the day of surgery traMADol (ULTRAM) 50 mg tablet Continue documented in this encounter Plan of Treatment Upcoming Encounters Date Type Department Care Team (Late st Contact Info) Description 02/21/2024 9:45 EDT Office Visit [facility] Adult Primary Care - [address] [id number] Carrington Calderon MD [address] [place] [phone] 02/27/2024 8:30 EDT Telemedicine [facility] Sleep Program - [address] [id number] Rn, Sleep 02/29/2024 10:30 EDT Appointment [facility] Radiology Nuclear Medicine and PET [address] [id number] 02/29/2024 14:30 EDT Appointment [facility] Radiology Nuclear Medicine and PET [address] [phone] 03/01/2024 8:00 EDT Appointment [facility] Radiology Nuclear Medicine and PET [address] [phone] 03/01/2024 9:30 EDT Appointment [facility] Radiology Nuclear Medicine and PET [address] [phone] documented as of this encounter Procedures Procedure Name Priority Date/Time Associated Diagnosis Comments ECG REPORT - SCANNED 05/21/2022 11:24 EST ECG REPORT - SCANNED 05/21/2022 11:24 EST EKG 12-LEAD Routine 05/20/2022 14:39 EST Type 2 diabetes mellitus with diabetic polyneuropathy, with long-term current use of insulin ([facility]) Preop examination documented in this encounter Results * ECG REPORT - SCANNED (05/21/2022 11:24 EST) 05/21/2022 11:2 4 EST Scan 2 Physical Sciences Professor PROCEDURE/MINOR BRAULIO GICAL ORDERABLES * ECG REPORT - SCANNED (05/21/2022 11:24 EST) 05/21/2022 11:2 4 EST Scan 2 Physical Sciences Professor PROCEDURE/MINOR BRAULIO GICAL ORDERABLES * EKG 12-LEAD (05/20/2022 14:39 EST) 05/20/2022 14:3 9 EST Narrative [facility] EKG - 05/20/2022 14:56 EST ? PC Site ? Test Date: ?2022-05-20 Pat Name: ? CRISTY LUO ?Department: ?? [facility] ? Room: ? Gender: ? Female ? Machine Installer: ?? [id number] : ?1985 ? Requested By: GARRISON KIRBY Order Number: [id number] ? Reading MD: ?? Rachel Shannon ? Measurements Intervals ?Mayer ? Rate: ? 114 ?P: ?57 VT: ? 141 ?QRS: ?17 QRSD: ? 88 ? T: ?28 QT: ? 306 ? QTc: ?422 ? Interpretive Statements SINUS TACHYCARDIA NONSPECIFIC T-WAVE ABNORMALITY ABNORMAL RHYTHM ECG Automated Interpretation. ??Provider Interpretation to follow. Compared to ECG 01/25/2021 21:12:12 T-wave abnormality now present Sinus rhythm no longer present Sinus arrhythmia no longer present Reviewed-sinus tachcyardia, artifact present in V5/V6 I reviewed the tracing and have either agreed or edited the findings in this report. Electronically Signed On 05-20-2022 14:56:11 EST by Rachel Stein PA-C. Procedure Note Rachel Stein PA-C - 05/20/2022 PC Site Test Date: 2022-05-20 Pat Name: CRISTY LUO Department: [facility] Room: Gender: Female Machine Installer: [id number] : 1985 Requested By: GARRISON KIRBY Order Number: [id number] Reading MD: Rachel Colon Measurements Intervals Mayer Rate: 114 P: 57 VT: 141 QRS: 17 QRSD: 88 T: 28 QT: 306 QTc: 422 Interpretive Statements SINUS TACHYCARDIA NONSPECIFIC T-WAVE ABNORMALITY ABNORMAL RHYTHM ECG Automated Interpretation. Provider Interpretation to follow. Compared to ECG 01/25/2021 21:12:12 T-wave abnormality now present Sinus rhythm no longer present Sinus arrhythmia no longer present Reviewed-sinus tachcyardia, artifact present in V5/V6 I reviewed the tracing and have either agreed or edited the findings inthis report. Electronically Signed On 05-20-2022 14:56:11 EST by Vladimir HERNANDEZ. Rachel Stein PA-C CARDIAC ECG ORDERA BLES [facility] EKG documented in this encounter Visit Diagnoses Diagnosis Type 2 diabetes mellitus with diabetic polyneuropathy, with long-term current use of insulin ([facility])- Primary Preop examination Preoperative examination, unspecified documented in this encounter Discontinued Medications Medication Sig Discontinue Reason Start Date End Da te flash glucose scanning reader (FREESTYLE VIGNESH 2 READER) misc 1 Device by misc (non-drug; combo route) route continuous. Patient Stopped Taking 10/01/2020 05/21/2022 flash glucose sensor (FREESTYLE VIGNESH 14 DAY SENSOR) kitIndications:Type 2 diabetes mellitus with diabetic polyneuropathy, with long-term current use of insulin ([facility]) Inject 1 Kit into the skin every 14 days. Patient Stopped Taking 01/29/2022 05/21/2022 flash glucose sensor (FREESTYLE VIGNESH 2 SENSOR) kit 1 Device by misc (non-drug; combo route) route continuous. Patient Stopped Taking 03/15/2022 05/21/2022 TENS unit and electrodes combo pack 1 Each by misc (non-drug; combo route) route daily. Patient Stopped Taking 08/01/2020 05/21/2022 documented as of this encounter Care Teams Physical Sciences Professor Relationship Specialty Start Date End Date Carrington Calderon MD 1 [facility] [address] [place] [phone] PCP - General Internal Medicine - Primary Care 12/09/20 documented as of this encounter
--- OUTSIDE RECORDS SUMMARY | 2023-12-16 00:34 | XMS_ITS | Encounter Summary ---
Author Organization [facility] Address [address] [place] [address] Care Team Providers Care Wheel Press Operator Name Role Phone Carrington Calderon MD Primary Care Provi anders Reason for Visit * Reason Onset Date Comments COVID-19 Positive Patient Outreach 02/25/2022 Encounter Details Date Type Department Care Team (Late st Contact Info) Description 02/25/2022 Telephone [facility] Adult Primary Care [address] [phone] Carrington Calderon MD [address] [phone] COVID-19 Positive Patient Outreach Social History Tobacco Use Types Packs/Day Years [...] Dispensed Refills Start Date End Da te nirmatrelvir-ritonavir (PAXLOVID 300-100, EUA,) 300 mg (150 mg x 2)-100 mg tabletIndications:COVID- 19 virus infection Take 3 Tablets by mouth 2 times daily for 5 days. 30 Tablet 02/26/2022 03/03/2022 documented in this encounter Miscellaneous Notes * Telephone Encounter - Benita Thompson RN - 02/26/2022 1541 EDT Patient has been informed of Dr. Calderon's response. BENITA THOMPSON RN * Telephone Encounter - Jesi Lua RN - 02/26/2022 1444 EDT Left message for pt to call back and review PCP note Med list/GFR faxed to [facility] * Telephone Encounter - Carrington Calderon MD - 02/26/2022 1341 EDT Med list reviewed. No need to stop any of her medications. She should watch closely for any signs of sedation with use of lorazepam and tramadol in conjunction with the paxlovid. * Telephone Encounter - Benita Thompson RN - 02/26/2022 0935 EDT Patient tested positive for covid 19 on 02/24/22 pm Symptoms started on 02/24/22 in the morning What is the patient requesting? Current symptoms: cough described as occational productive clear sputum, headache, nasal congestionand purulent nasal discharge At onset of symptoms she does report having subjective sx of fever (hot/cold chills) but did not check her temperature. Today she is not experiencing this. Fatigue, congestion worse when laying down at night to sleep which is affecting her breathing Screening for Vaccination Status: 1. Is patient vaccinated against COVID? yes 2. Have they received their third dose Vish 01/28/21, Moderna 07/06/21 3. Is patient immunocompromised none 4. Risk factors: Obesity (BMI>30) and Diabetes 5. Reviewed medication list with patient and updated in Epic Yes Reviewed with patient. The prn Tramadol she takes ~2 / day 2-3 times/ week. Prn compazine suppositories and Ondansetron takes when sheis experiencing gastroparesis 6. Renal disease No GFR 130, drawn on 12/06/20 7. Medication list and creatinine (for renal inpaired patients) faxed to pharmacy. No, Medication list to be faxed after reviewed with PCP and if Paxlovid is prescribed 8. Patient Education provided. verbally reviewed with patient ???We are obligated to tell you that Paxlovid is medicine that the FDA has given emergency use authorization to treat mild to moderate COVID-19 in patients 12 year of age and older (weighing at least40 kg) who are at high risk for severe COVID* including hospitalization. This medication is under an emergency use designation because it has not been studied extensively. Patients have generally tolerated it well with most side effects being GI in nature (diarrhea). As with any medicine, there is a chance for an allergic reaction. There are many medication interactions and your medications will be reviewed prior to this medicine being prescribed to you. If you meet the criteria to receive Paxlovid you will get a fact sheet from the pharmacy when the medication is picked up at the pharmacy. We encourage you to read the packet insert for more information on the medication. It is also recommended that you isolate for at least 5 days, stay hydrated, wear a mask if you haveto be around others inside or outside, clean frequently touched surfaces and wash your hands often. Rx pended with [facility] pharmacy loaded. Patient lives in [place] but says that her [id number] will be in [place] this afternoon and will be able to pick this up for her. BENITA THOMPSON, RN * Telephone Encounter - Berenice Mahan - 02/25/2022 0912 EDT COVID POSITIVE TEST RESULT Date Tested Positive: Yesterday (Tuesday) Date Symptoms Started: Yesterday (Tuesday) Symptoms: - Headache - Fatigue - Stuffy nose - Sneezing - Coughing Patient would like a call back to discuss possible paxlovid treatment. documented in this encounter Plan of Treatment Upcoming Encounters Date Type Department Care Team (Late st Contact Info) Description 02/21/2024 9:45 EDT Office Visit [facility] Adult Primary Care - [address] [phone] Carrington Calderon MD [address] [place] [phone] 02/27/2024 8:30 EDT Telemedicine [facility] Sleep Program - [address] [phone] Rn, Sleep 02/29/2024 10:30 EDT Appointment [facility] Radiology Nuclear Medicine and PET - [address] [phone] 02/29/2024 14:30 EDT Appointment [facility] Radiology Nuclear Medicine and PET - [address] [id number] 03/01/2024 8:00 EDT Appointment [facility] Radiology Nuclear Medicine and PET [address] [phone] 03/01/2024 9:30 EDT Appointment [facility] Radiology Nuclear Medicine and PET [address] [phone] documented as of this encounter Visit Diagnoses Diagnosis COVID-19 virus infection- Primary documented in this encounter Care Teams Wheel Press Operator Relationship Specialty Start Date End Date Carrington Calderon MD 1 [facility] 1 [place] [phone] PCP - General Internal Medicine - Primary Care 12/09/20 documented as of this encounter
--- OUTSIDE RECORDS SUMMARY | 2023-12-16 00:34 | XMS_ITS | Encounter Summary ---
Author Organization [facility] Address [address] [place] [address] Care Team Providers Care Teacher Kindergarten Name Role Phone Carrington Calderon MD Primary Care Provi anders Reason for Referral * Medication Prior Authorization - Authorized Specialty Diagnoses / Procedures Referred By Kit goode Referred To Contact Diagnoses Chronic midline low back pain without sciatica Nimisha Clifton NP [address] [phone] Referral ID Status Reason Start Date Expiration Date V isits Requested Visits Authorized [id number] Authorized 08/05/2022 09/04/2023 1 1 Reason for Visit * Reason Comments Pre-op Exam Toe amputation Encounter Details Date Type Department Care Team (Late st Contact Info) Description 09/02/2022 11:15 EDT Office Visit [facility] Adult Primary Care - [address] [address] Nimisha Clifton NP [address] [phone] Osteomyelitis of left foot, unspecified type (HCC-CMS) (Primary Dx); Type 2 diabetes mellitus with diabetic polyneuropathy, with long-term current use of insulin (HCC-CMS); Chronic midline low back pain without sciatica; Preop examination Social History Tobacco Use Types [...] to sleep or slept in a senior living (including now)? No 01/13/2022 Interpersonal Safety Answer Date Record ed How often does anyone, inclu ding family, hit, punch or physically hurt you? Never 01/13/2022 How often does anyone, inclu ding family, insult, scream, curse or threaten to hurt you? Never 01/13/2022 Sex and Gender Information Value Date Recorded Sex Assigned at Not on file Gender Identity Female 06/18/2019 8:54 EST Sexual Orientation Not on file documented as of this encounter Last Filed Vital Signs Vital Sign Reading Time Taken Comments Blood Pressure 120/88 09/02/2022 1117 EDT Pulse 92 09/02/2022 1117 EDT Temperature 36.3 ??C (97.4 ??F) 09/02/2022 1117 EDT Respiratory Rate 20 09/02/2022 1117 EDT Oxygen Saturation - - Inhaled Oxygen Concentration - - Weight 93.4 kg (206 lb) 09/02/2022 1117 EDT Height - - Body Mass Index 35.34 10/09/2021 1127 EDT documented in this encounter [...] Dispensed Refills Start Date End Da te lidocaine 5 % (LIDODERM) 5 % patchIndications:Chroni c midline low back pain without sciatica Place 1 Patch onto the skin daily. Patch(es) may remain in place for up to 12 hours in any 24-hour period. 30 Patch 2 09/02/2022 traMADol (ULTRAM) 50 mg tabletIndications:Chron ic midline low back pain without sciatica Take 1 Tablet by mouth every 6 hours as needed for Pain. Daily Max: 200 mg 30 Tablet 2 09/03/2022 11/17/2022 nystatin (MYCOSTATIN) powder Apply topically to affected area 2 times daily as needed (rash). 15 g 2 09/02/2022 03/16/2023 insulin aspart U-100 (NOVOLOG FLEXPEN) 100 unit/mL (3 mL) injectable penIndications:type 2 diabetes mellitus,as needed with meals. Inject 12 Units into the skin 3 times daily with meals. 30 mL 2 09/02/2022 11/17/2022 documented in this encounter Progress Notes * Nimisha Clifton, GUSTAVO - 09/02/2022 1115 EDT Preoperative H&P Date of Service: 09/02/2022 Chief Complaint Patient presents with ??? Pre-op Exam Toe amputation Planned Procedure: Left foot 2nd toe amputation Surgeon: Planned Procedure Date: 09/10/22 Problem List Available or Initiated: yes HISTORY OF PRESENT ILLNESS: Cristy Luo is a 37 y.o., female, who presents today for preop. Surgery in [facility]. Hospitalized last week for infection tue-tue. Saw surgeon yesterday. Reports this will be her third amputation since December, had the tip of this toe amputated initially and now having to have the entire toe removed. She has a new diabetic shoes, developed a small ulcer on the top of this toe that quicklyprogressed to a large area and redness, she was hospitalized last week, treated with IV antibiotics. Feeling better now, shares that she follows with endocrine in [facility], next visit in September. Believes her last A1c was at 10.6%. Recently started on empagliflozin, she reports ongoingintermittent itching and yeast symptoms under her pannus, believes she has used nystatin powder before, currently fairly quiet. Alcohol use -none Prior h/o of anesthetic complications no Prior h/o bleeding problems no Prior h/o DVT/PE no Active Problem List Patient Active Problem List Diagnosis ??? Migraine with aura and without status migrainosus, not intractable ??? Anxiety and depression ??? Chronic left ear pain ??? Family history of rheumatoid arthritis ??? Chronic midline low back pain without sciatica ??? Type 2 diabetes mellitus with diabetic polyneuropathy, with long-term current use of insulin ([facility]) ([facility]) ??? Gastroparesis ??? Neuropathic diabetic ulcer of foot ([facility]) ??? Tobacco use ??? Skin infection ??? [...] has a referral for therapy. ??? Diabetes ([facility]) ([facility]) A1c 10.3 on 11/28/2019 - poorly controlled ??? Diabetes mellitus, type 2 ([facility]) ([facility]) pt check blood sugars at home- [...] occasionally ??? Neuropathic diabetic ulcer of foot ([facility]) 09/17/2021 ??? Obesity, unspecified ??? Osteomyelitis ([facility]) ([facility]) of left great toe-s/p amputation ??? [...] Social History Tobacco Use ??? Smoking status: Former Packs/day: 0.50 Years: 10.00 Pack years: 5.00 Types: Cigarettes Start date: 11/10/2010 ??? Smokeless [...] 0 ??? blood glucose test strips Brand: Trapster Precision Cristo, use as directed if Freestyle [...] daily. 400 Each 2 ??? lancets Brand: Kenzei, use as directed if Freestyle Vignesh roy isnt working (Patient not taking: Reported on 09/02/2022) 100 Each 3 ??? lancets One Touch [...] site at the same time each day. (Patient not taking: Reported on 09/02/2022) 42 Patch 0 ??? nicotine (NICODERM CQ) 7 mg/24 hr patch Apply one patch only daily on skin without hair. Apply to a different skin site at the same time each day. (Patient not taking: Reported on 09/02/2022) 14 Patch 0 ??? nystatin (MYCOSTATIN) cream [...] current facility-administered medications for this visit. Allergies Allergies Allergen Reactions ??? Citalopram Other (See Comments) suicidal ideation, approx 2012 ??? Other - See Comments Swelling of throat pomergrante ??? Advil [Ibuprofen] Hives Review of Systems Constitutional: Negative. HENT: Negative. Eyes: Negative. Respiratory: Negative. Negative for shortness of breath. Cardiovascular: Negative. Negative for chest pain. Gastrointestinal: Negative. Genitourinary: Negative. Musculoskeletal: Per HPI Skin: Negative. Neurological: Negative. Endo/Heme/Allergies: Negative. Psychiatric/Behavioral: Negative. PHYSICAL EXAMINATION: BP 120/88 Pulse 92 Temp 36.3 ??C (97.4 ??F) (Tympanic) Resp 20 Wt 93.4 kg (206 lb) LMP 08/19/2022 (Approximate) BMI 35.34 kg/m?? , Body mass index is 35.34 kg/m??. Physical Exam Constitutional: General: She is [...] Skin: General: Skin is warm and dry. Comments: Left foot wrapped and in boot, did not reexamine today, saw surgeon yesterday. Neurological: Mental Status: She is alert. EKG: not indicated IMPRESSION/Plan: Proceed with plan for surgery. Pt instructed to review preop paperwork from surgeon. To call if any questions or new illness symptoms. Advised not to take ibuprofen or other nsaids within one week of surgery or as otherwise instructed. Reviewed that the empagliflozin could worsen her yeast infections, her A1c remains very high as well. She will follow-up with endocrine next month as scheduled. I have ordered nystatin powder for herto use. Proceed with surgery as scheduled for amputation secondary to osteomyelitis of the second toe left foot. She will follow-up with Dr. Calderon her PCP in November as scheduled. Requested refill on her tramadol, using typically not more than 1 tab every 1-2 days. Has about 10 pills left. Anticipates she willneed before November visit. Nimisha Clifton NP 09/02/2022 11:49 documented in this encounter Plan of Treatment Upcoming Encounters Date Type Department Care Team (Late st Contact Info) Description 02/21/2024 9:45 EDT Office Visit [facility] Adult Primary Care - [address] [phone] Carrington Calderon MD [address] [place] [phone] 02/27/2024 8:30 EDT Telemedicine [facility] Sleep Program - [address] [phone] Rn, Sleep 02/29/2024 10:30 EDT Appointment [facility] Radiology Nuclear Medicine and PET [address] [phone] 02/29/2024 14:30 EDT Appointment [facility] Radiology Nuclear Medicine and PET [address] [phone] 03/01/2024 8:00 EDT Appointment [facility] Radiology Nuclear Medicine and PET [address] [phone] 03/01/2024 9:30 EDT Appointment [facility] Radiology Nuclear Medicine and PET [address] [phone] documented as of this encounter Visit Diagnoses Diagnosis Osteomyelitis of left foot, unspecified type ([facility])- Primary Type 2 diabetes mellitus with diabetic polyneuropathy, with long-term current use of insulin ([facility]) Chronic midline low back pain without sciatica Preop examination Preoperative examination, unspecified documented in this encounter Discontinued Medications Medication Sig Discontinue Reason Start Date End Da te lidocaine 5 % (LIDODERM) 5 % patchIndications:Chroni c midline low back pain without sciatica Place 1 Patch onto the skin daily. Patch(es) may remain in place for up to 12 hours in any 24-hour period. Reorder 12/21/2021 09/02/2022 insulin aspart U-100 (NOVOLOG FLEXPEN) 100 unit/mL (3 mL) injectable penIndications:type 2 diabetes mellitus,as needed with meals. Inject 12 Units into the skin 3 times daily with meals. Reorder 01/29/2022 09/02/2022 nicotine (NICODERM CQ) 14 mg/24 hr patchIndications:Tobacc o use Apply one patch only daily on skin without hair. Apply to a different skin site at the same time each day. 01/29/2022 09/02/2022 nicotine (NICODERM CQ) 7 mg/24 hr patchIndications:Tobacc o use Apply one patch only daily on skin without hair. Apply to a different skin site at the same time each day. 01/29/2022 09/02/2022 traMADol (ULTRAM) 50 mg tabletIndications:Chron ic midline low back pain without sciatica Take 1 Tablet by mouth every 6 hours as needed for Pain. Daily Max: 200 mg Reorder 01/29/2022 09/03/2022 documented as of this encounter Historical Medications * This list may reflect changes made after this encounter. Medication Sig Dispensed Refills Start Date End Date empagliflozin (JARDIANCE ORAL) Take by mouth. 06/27/2023 added in this encounter Care Teams Teacher Kindergarten Relationship Specialty Start Date End Date Carrington Calderon MD 1 [facility] Level [address] [place] [phone] PCP - General Internal Medicine - Primary Care 12/09/20 documented as of this encounter
--- OUTSIDE RECORDS SUMMARY | 2023-12-16 00:34 | XMS_ITS | Encounter Summary ---
Author Organization [facility] Address [address] [place] [address] Care Team Providers Care Actuarial Manager Name Role Phone Carrington Calderon MD Primary Care Provi anders Reason for Visit * Reason Onset Date Comments Prior Auth, Medication 01/29/2022 Encounter Details Date Type Department Care Team (Late st Contact Info) Description 01/29/2022 Telephone [facility] Adult Primary Care [address] [phone] Carrington Calderon MD 1 [facility] Level [address] [place] [phone] Prior Auth, Medication Social History Tobacco [...] No 01/13/2022 Housing Stability Vital Sign Answer Nomr e Recorded Unable to Pay for Housing in the Last Year Not o n file 01/13/2022 Number of Places Lived in the Last Year Not on f ile 01/13/2022 In the last 12 months, was t here a time when you did not have a steady place to sleep or slept in a fdc (including now)? No 01/13/2022 Interpersonal Safety Answer [...] encounter Miscellaneous Notes * Telephone Encounter - Blanquita Jaimes - 02/26/2022 1654 EDT PA has been approved from 02/26/2022 to 08/26/2022 Patient has been notified. * Telephone Encounter - Karen Trujillo - 02/26/2022 1518 EDT Call to [facility] to check and see what is going on with the patients sensors at the patientis all out and needs these EDGARD. Per [facility] Azra, when this is ran it states drug therapy is not on file. OV notes and completed form have been faxed to [facility] for approval. * Telephone Encounter - Satinder Thompson, RN - 02/26/2022 1020 EDT While on the phone with the patient regarding her Covid symptoms. She requested an update on the status of the approval for her Vignesh sensors as she does not have anymore. She says that she did upload what was requested but is unsure if it was done correctly. Routing to [facility] to follow up with patient about this. SATINDER THOMPSON RN * Telephone Encounter - Berenice Mahan - 01/29/2022 1706 EDT Waiting for patient to upload freestyle vignesh report for reauthorization submission. * Telephone Encounter - Karen Trujillo - 01/29/2022 1630 EDT Medication Name: Free style Nissa 14 day sensor Mejia: [id number] documented in this encounter Plan of Treatment Upcoming Encounters Date Type Department Care Team (Late st Contact Info) Description 02/21/2024 9:45 EDT Office Visit [facility] Adult Primary Care - [address] [phone] Carrington Calderon MD [address] [place] [phone] 02/27/2024 8:30 EDT Telemedicine [facility] Sleep Program - [address] [phone] Rn, Sleep 02/29/2024 10:[address] [facility] Radiology Nuclear Medicine and PET [address] [phone] 02/29/2024 14:[address] [facility] Radiology Nuclear Medicine and PET [address] [phone] 03/01/2024 8:[address] [facility] Radiology Nuclear Medicine and PET [address] [phone] 03/01/2024 9:[address] [facility] Radiology Nuclear Medicine and PET [address] [phone] documented as of this encounter Visit Diagnoses Not on filedocumented in this encounter Care Teams Actuarial Manager Relationship Specialty Start Date End Date Carrington Calderon MD [address] [place] [phone] PCP - General Internal Medicine - Primary Care 12/09/20 documented as of this encounter
--- OUTSIDE RECORDS SUMMARY | 2023-12-16 00:34 | XMS_ITS | Encounter Summary ---
Author Organization [facility] Address [address] [place] [address] Care Team Providers Care Cloth Shearer Name Role Phone Carrington Calderon MD Primary Care Provi anders Reason for Visit * Reason Comments Med Change Request Encounter Details Date Type Department Care Team (Late st Contact Info) Description [facility] 1 [place], [place] [phone] Nimisha Clifton, GUSTAVO 1 [facility] Level 1 [place] [phone] Med Change Request Social History [...] slept in a fpc (including now)? No 01/13/2022 Interpersonal Safety Answer [...] Telephone Encounter - Eryn Pack RN - 09/15/2022 1014 EDT insulin aspart U-100 (NOVOLOG FLEXPEN) 100 unit/mL (3 mL) injectable pen [[id number]] ?? Order Details Dose: 12 Units Route: subcutaneous Frequency: 3 TIMES DAILY WITH MEALS Dispense Quantity: 30 mL Refills: 2 Indications of Use: type 2 diabetes mellitus, as needed with meals. ?? Sig: Inject 12 Units into the skin 3 times daily with meals. ?? Start Date: 09/02/22 End Date: -- Written Date: 09/02/22 Expiration Date: -- ?? Next visit- 11/17/22 Last visit- 09/02/22 documented in this encounter Plan of Treatment Upcoming Encounters Date Type Department Care Team (Late st Contact Info) Description 02/21/2024 9:45 EDT Office Visit [facility] Adult Primary Care - [address] [phone] Carrington Calderon MD 1 [facility] 1 [place] [phone] 02/27/2024 8:30 EDT Telemedicine [facility] Sleep Program - [address] [phone] Rn, Sleep 02/29/2024 10:30 EDT Appointment [facility] Radiology Nuclear Medicine and PET - [address] [phone] 02/29/2024 14:30 EDT Appointment [facility] Radiology Nuclear Medicine and PET - [address] [address] 03/01/2024 8:00 ED[facility] and PET - [address] [address] 03/01/2024 9:30 EDT Appointment [facility] Radiology Nuclear Medicine and PET - [address] [phone] documented as of this encounter Visit Diagnoses Diagnosis Type 2 diabetes mellitus with diabetic polyneuropathy, with long-term current use of insulin ([facility])- Primary documented in this encounter Care Teams Cloth Shearer Relationship Specialty Start Date End Date Carrington Calderon MD 1 [facility] 1 [place] [phone] PCP - General Internal Medicine - Primary Care 12/09/20 documented as of this encounter
--- OUTSIDE RECORDS SUMMARY | 2023-12-16 00:34 | XMS_ITS | Encounter Summary ---
Author Organization [facility] Address [address] [place] [address] Care Team Providers Care [employer] Name Role Phone Carrington Calderon MD Primary Care Provi anders Reason for Referral * PT/OT/ST (Routine/Next Available) - Closed Specialty Diagnoses / Procedures Referred By Kit goode Referred To Contact Rehab Therapies Diagnoses Bilateral chronic knee pain Chronic low back pain, unspecified back pain laterality, unspecified whether sciatica present Carrington Calderon MD [address] [phone] Referral ID Status Reason Start Date Expiration Date V isits Requested Visits Authorized [id number] Closed Specialty Services Required 11/17/2022 1 1 Question Answer Reason for Request: bilateral knee and low back pain Practice Site (External Referral Only): [facility] in [place] Reason for Visit * Reason Comments Annual Exam Encounter Details Date Type Department Care Team (Late st Contact Info) Description 11/17/2022 10:30 EDT Office Visit [facility] Adult Primary Care - [address] [address] Carrington Calderon MD [address] [phone] Visit for preventive health examination (Primary Dx); Anxiety; Need for pneumococcal vaccination; Type 2 diabetes mellitus with diabetic polyneuropathy, with long-term current use of insulin (HCC-CMS); Gastroparesis; Diabetic polyneuropathy associated with type 2 diabetes mellitus (HCC-CMS); Chronic midline low back pain without sciatica; Anxiety and depression; Psychophysiological insomnia; Bilateral chronic knee pain; Chronic low back pain, unspecified back pain laterality, unspecified whether sciatica present; Encounter for screening for other viral diseases [...] slept in a prison (including now)? No 11/17/2022 Interpersonal Safety Answer [...] Sign Reading Time Taken Comments Blood Pressure 122/76 11/17/2022 1026 EDT Pulse 74 11/17/2022 1026 EDT Temperature 36.6 ??C (97.8 ??F) 11/17/2022 1026 EDT Respiratory Rate 20 11/17/2022 1026 EDT Oxygen Saturation - - Inhaled Oxygen Concentration - - Weight 84.4 kg (186 lb) 11/17/2022 1026 EDT Height 165.7 cm (5' 5.25) 11/17/2022 1026 EDT Body Mass Index 30.72 11/17/2022 1026 EDT documented in this encounter [...] Dispensed Refills Start Date End Da te ondansetron (ZOFRAN-ODT) 4 mg disintegrating tabletIndications:Gastro paresis Take 1 Tablet by mouth every 8 hours as needed for Nausea. 30 Tablet 11 11/17/2022 06/27/2023 DULoxetine (CYMBALTA) 20 mg delayed release capsuleIndications:Anxie ty and depression Take 1 Capsule by mouth daily. 30 Capsule 2 11/17/2022 12/17/2022 traMADol (ULTRAM) 50 mg tabletIndications:Chroni c midline low back pain without sciatica Take 1 Tablet by mouth every 6 hours as needed for Pain. Daily Max: 200 mg 30 Tablet 5 11/17/2022 01/06/2023 insulin glargine (LANTUS SOLOSTAR/SEMGLEE) 100 unit/mL (3 mL) injection penIndications:Type 2 diabetes mellitus with diabetic polyneuropathy, with long-term current use of insulin ([facility]) Inject 40 Units into the skin at bedtime. 36 mL 4 11/17/2022 06/27/2023 insulin aspart U-100 (NOVOLOG FLEXPEN) 100 unit/mL (3 mL) injectable penIndications:type 2 diabetes mellitus,as needed with meals. Inject 8-14 Units into the skin 3 times daily with meals. Sliding scale- 8+(2-6) units premeal 30 mL 4 11/17/2022 11/18/2022 gabapentin (NEURONTIN) 300 mg capsuleIndications:Diabe tic polyneuropathy associated with type 2 diabetes mellitus ([facility]) Take 1 Capsule by mouth every morning AND 3 Capsules at bedtime. 360 Capsule 4 11/17/2022 06/27/2023 SITagliptin phosphate (JANUVIA) 100 mg tabletIndications:Type 2 diabetes mellitus with diabetic polyneuropathy, with long-term current use of insulin ([facility]) Take 1 Tablet by mouth daily. 90 Tablet 4 11/17/2022 06/27/2023 omeprazole (PRILOSEC) 20 mg capsuleIndications:Gastr oparesis Take 1 Capsule by mouth daily. 90 Capsule 3 11/17/2022 12/17/2022 LORazepam (ATIVAN) 0.5 mg tabletIndications:Anxiet y Take 1 Tablet by mouth daily as needed for Anxiety. Daily Max: 0.5 mg 30 Tablet 3 11/17/2022 06/27/2023 documented in this encounter Progress Notes * Carrington Calderon MD - 11/17/2022 1030 EDT Primary Care Office Visit Assessment & Plan Diagnoses and all orders for this visit: Visit for preventive health examination: We addressed quite a wide range of concerns today. We addressed numerous health maintenance items. She is due for cervical cancer screening, but is just at the tail end of menses and would prefer to have this done at a different time. We can do this at our next in person visit. - LIPID PROFILE (INCLUDES CHOLESTEROL, TRIGLYCERIDES, HDL, LDL) - COMPREHENSIVE METABOLIC PANEL (CMP) - COMPLETE BLOOD COUNT AND DIFFERENTIAL Anxiety: Depression and anxiety symptoms are increased. We discussed her prior episode of suicidality in the setting of taking citalopram. She agrees with and acknowledges the fact that this may havebeen a medication effect but also consistently have been a reflection of the severity of her condition at the time. She is amenable to another attempt at a first-line antidepressant/antianxiety medication, preferring to avoid an agent in the same drug class, which is very reasonable. I suggested today that she may benefit from trying duloxetine, which can impact pain especially neuropathic pain, and also benefit her mood. She is amenable to trying this. I suggested we start at a low dose and move very slowly in light of her previous symptoms. She also plans to stop this immediately if she experiences any worsening of her mood. Will reassess in around 4 weeks. - LORazepam (ATIVAN) 0.5 mg tablet Need for pneumococcal vaccination - PNEUMOCOCCAL CONJUGATE VACCINE 20-VALENT (PCV20) (PREVNAR-20) 0.5 ML IM (18 YRS+) Type 2 diabetes mellitus with diabetic polyneuropathy, with long-term current use of insulin ([facility]) ([facility]): Empagliflozin was stopped recently in the setting of an episode of gastroparesis. There is ongoing room for improvement in control. I suggested we keep things relatively simple goal by increasing the Januvia dose, and making an adjustment to her mealtime insulin. She is presently taking asliding scale of 2 to 6 units. I recommended that she start taking a minimum of 8 units for any substantial meal, with 2-6 on top of this as a sliding scale for elevated readings. She is comfortable with this. Unfortunately, she is not a candidate for a GLP-1 receptor agonist because of her recurrent gastroparesis. No change to Lantus dose. - SITagliptin phosphate (JANUVIA) 100 mg tablet - insulin aspart U-100 (NOVOLOG FLEXPEN) 100 unit/mL (3 mL) injectable pen - insulin glargine (LANTUS SOLOSTAR/SEMGLEE) 100 unit/mL (3 mL) injection pen - HEMOGLOBIN A1C - THYROID CASCADE - URINE [id number] RATIO (ACR) Gastroparesis: Refilled omeprazole and ondansetron. - omeprazole (PRILOSEC) 20 mg capsule - ondansetron (ZOFRAN-ODT) 4 mg disintegrating tablet Diabetic polyneuropathy associated with type 2 diabetes mellitus ([facility]) ([facility]): Continue gabapentin. She is comfortable with this dose, and finds that the heavier weight on the evening dose is effective for when her symptoms are most active. She has a rash on the foot that could be consistent with either shingles or eczema. I suggested she keep an eye on this rash and let me know if it evolves further. Otherwise, will stick with her intuition that this was an injury. - gabapentin (NEURONTIN) 300 mg capsule Chronic midline low back pain without sciatica: Continue tramadol. Prescription agreement signed today. - traMADol (ULTRAM) 50 mg tablet Anxiety and depression - DULoxetine (CYMBALTA) 20 mg delayed release capsule Psychophysiological insomnia: Today we talked about sleep hygiene considerations. Her habits are fairly good without any significant low hanging fruit. I suggested she consider becoming more consistent with meditation and a routine of winding down at the end of the day. I also suggested that we follow her response to the duloxetine to see if this helps address her insomnia which I suspect likely has a significant anxiety component considering her other described symptoms. Bilateral chronic knee pain: Offered PT. She would like to try this out. - AMB CONS/FOLLOW UP PHYSICAL THERAPY - OUTSIDE OF NETWORK Chronic low back pain, unspecified back pain laterality, unspecified whether sciatica present - AMB CONS/FOLLOW UP PHYSICAL THERAPY - OUTSIDE OF NETWORK Encounter for screening for other viral diseases - HEPATITIS C AB W REFLEX TO HCV RNA BY PCR - HEPATITIS B SURFACE ANTIBODY - HIV 1/2 ANTIGEN AND ANTIBODY, 4TH GENERATION Other orders - COVID-19 MRNA-LNP BIVALENT VACCINE (PFIZER BIVALENT BOOSTER) PF 0.3 ML IM (12 YRS+) I spent a total of 50 minutes today in chart review, care coordination, [id number] time with the patient independent of preventive care. Return for 1 month, diabetes and mood, 3 months, diabetes and mood , vid or FTF OK, same day ok. Patient education was direct. Barriers were assessed and addressed as needed. Subjective Stella is a 37 y.o. female presenting with Annual Exam HPI Last visit with me was in January of last year via televideo. NicoDerm patch was prescribed to assist with tobacco cessation. Diabetes was noted to be persistently uncontrolled with an A1c of 9.7. I prescribed the freestyle mitul, did not make changes to long-acting insulin in light of lower fastinglevels, recommended increasing mealtime insulin from 9 units to 12 units. I also suggested making appointments every 8 weeks to help get her diabetes under better control. She was seen by Dr. Mims in endocrinology in March, recommended to check glucose 4-5 times per day and check back to make adj ustments. She was seen for preop visits in May and then August for planned amputations of portions of the left foot for osteomyelitis in the setting of diabetic foot infection. Today, Stella and I covered a number of issues: -Depression and anxiety symptoms have been increased in the recent past. She reports that she parted ways with 2 foster children recently and her to adopted children who she had previously fostered have had their biological parents attempt to reenter the picture. She also notes that she has had some deaths in her family. She has found counseling helpful in the past, has not done this recently as her prior therapist is retired. She denies any thoughts of self- harm. She has taken citalopram in the past, and either coincidentally or as a result experienced increased suicidality resulting in a hospital admission at that time. She has not had any panic attacks. She uses marijuana, which helps inconsistently. She has cut back as this has not been a consistent benefit. She has been taking lorazepam more frequently, on the order of daily lately. -Stella also has some significant insomnia. She has trouble falling and staying asleep. She takes melatonin as well as ZzzQuil for this. She occasionally has racing thoughts when she is trying to sleep,but does not note this as a norm. She drinks 1 cup of coffee in the morning, occasionally 2 cups. She sometimes watches TV in the evening, but not routinely. She uses a meditation rena at bedtime. Shenotes that sometimes, pain is a contributor to her difficulty falling asleep. -She was using a Dexcom up until around 2 weeks ago. However it turns out that the Dexcom 6 is no longer supported by or syncs with her phone. She does not have a backup glucometer at this time. She reports that prior to having his labs and data, her readings were often in the 170-180 range, with arecent max of 220 and the lowest she has recently seen around 06 30-07 05. She had a recent gastroparesis flare, and has stopped temporarily administering mealtime insulin as her p.o. intake has been reduced. Just in the last day or so she has started to eat meals of regular size. -In terms of pain, she has some bilateral knee pain that has crept up in the recent past, continuesto suffer from low back pain. She finds alternating lidocaine patches with tramadol to be an effective balance for treating her pain. -Stella has noted that her heart rate is sometimes elevated. She notices this tracks with her anxiety symptoms. -She monitors her feet regularly as her sensation is very diminished. She has noticed a new erythematous lesion on her left arch, which she thinks came from stepping on something. 10-point review of systems performed and was negative aside from what is mentioned above. Data reviewed this visit: problem list/past medical history, current medications and allergies ROS - See HPI Objective BP 122/76 Pulse 74 Temp 36.6 ??C (97.8 ??F) (Tympanic) Resp 20 Ht 165.7 cm (65.25) Wt 84.4 kg (186 lb) BMI 30.72 kg/m?? Physical Exam Constitutional: Appearance: She is well-developed and well-nourished. Cardiovascular: Heart sounds: No murmur heard. No friction rub. No gallop. Pulmonary: Effort: Pulmonary effort is normal. Breath sounds: Normal breath sounds. No wheezing, rhonchi or rales. Abdominal: General: There is no distension. Neurological: Comments: Diabetic foot exam: Monofilament sensation absent in both feet with sensation beginning around the low-mid castellanos on the left and just above the ankle on the right. Vibratory sensation absent. Pedal pulses 2+ bilaterally.There is a section of erythema on the left arch with a vesicular/pustular appearance on an erythematous base Psychiatric: Mood and Affect: Mood and affect normal. Behavior: Behavior normal. documented in this encounter Plan of Treatment Upcoming Encounters Date Type Department Care Team (Late st Contact Info) Description 02/21/2024 9:45 EDT Office Visit [facility] Adult Primary Care - [address] [id number] Carrington Calderon MD [address] [place] [phone] 02/27/2024 8:30 EDT Telemedicine [facility] Sleep Program - [address] [address] Rn, Sleep 02/29/2024 10:30 EDT Appointment [facility] Radiology Nuclear Medicine and PET [address] [address] 02/29/2024 14:30 EDT Appointment [facility] Radiology Nuclear Medicine and PET [address] [address] 03/01/2024 8:00 EDT Appointment [facility] Radiology Nuclear Medicine and PET [address] [address] 03/01/2024 9:30 EDT Appointment [facility] Radiology Nuclear Medicine and PET [address] [phone] Scheduled Referrals Name Type Priority Associated Diagnoses Order Schedule AMB CONS/FOLLOW UP PHYSICAL THERAPY - OUTSIDE OF NETWORK Outpatient Referral Routine/Next Available Bilateral chronic knee pain Chronic low back pain, unspecified back pain laterality, unspecified whether sciatica present Expected: 11/24/2022 (Approximate), Expires: 11/18/2023 documented as of this encounter Visit Diagnoses Diagnosis Visit for preventive health examination- Primary Routine general medical examination at a health care facility Anxiety Anxiety state, unspecified Need for pneumococcal vaccination Need for prophylactic vaccination against streptococcus pneumoniae (pneumococcus) Type 2 diabetes mellitus with diabetic polyneuropathy, with long-term current use of insulin ([facility]) Gastroparesis Diabetic polyneuropathy associated with type 2 diabetes mellitus ([facility]) Chronic low back pain, unspecified back pain laterality, unspecified whether sciatica present Anxiety and depression Dysthymic disorder Psychophysiological insomnia Persistent disorder of initiating or maintaining sleep Bilateral chronic knee pain Pain in joint, lower leg Encounter for screening for other viral diseases documented in this encounter Discontinued Medications Medication Sig Discontinue Reason Start Date End Da te LORazepam (ATIVAN) 0.5 mg tabletIndications:Anxiety Take 1 Tablet by mouth daily as needed for Anxiety. Daily Max: 0.5 mg Reorder 10/30/2021 11/17/2022 insulin glargine (LANTUS SOLOSTAR/SEMGLEE) 100 unit/mL (3 mL) injection penIndications:Type 2 diabetes mellitus with diabetic polyneuropathy, with long-term current use of insulin ([facility]) Inject 40 Units into the skin at bedtime for 90 days. 12/21/2021 11/17/2022 ondansetron (ZOFRAN-ODT) 4 mg disintegrating tabletIndications:Gastropa resis Take 1 Tablet by mouth every 8 hours as needed for Nausea. Reorder 12/21/2021 11/17/2022 omeprazole (PRILOSEC) 20 mg capsule Take 1 capsule by mouth daily. Reorder 03/02/2022 11/17/2022 SITagliptin (JANUVIA) 50 mg tablet Take 1 Tablet by mouth daily. 03/15/2022 11/17/2022 insulin aspart U-100 (NOVOLOG FLEXPEN) 100 unit/mL (3 mL) injectable penIndications:type 2 diabetes mellitus,as needed with meals. Inject 12 Units into the skin 3 times daily with meals. 09/02/2022 11/17/2022 traMADol (ULTRAM) 50 mg tabletIndications:Chronic midline low back pain without sciatica Take 1 Tablet by mouth every 6 hours as needed for Pain. Daily Max: 200 mg Reorder 09/03/2022 11/17/2022 gabapentin (NEURONTIN) 300 mg capsuleIndications:Diabeti c polyneuropathy associated with type 2 diabetes mellitus (HCC-CMS) TAKE 1 CAPSULE BY MOUTH IN THE MORNING AND 3 IN THE EVENING 10/15/2022 11/17/2022 documented as of this encounter Orders Immunization/Injection Count Last Ordered Date First Ordered Date COVID-19 MRNA-LNP BIVALENT V ACCINE (PFIZER BIVALENT BOOSTER) PF 0.3 ML IM (12 YRS+) 1 11/17/2022 PNEUMOCOCCAL CONJUGATE VACCI NE 20-VALENT (PCV20) (PREVNAR-20) 0.5 ML IM (18 YRS+) 1 11/17/2022 documented in this encounter Care Teams Director [employer] Relationship Specialty Start Date End Date Carrington Calderon MD 1 [facility] [address] [place] [phone] PCP - General Internal Medicine - Primary Care 12/09/20 documented as of this encounter
--- OUTSIDE RECORDS SUMMARY | 2023-12-16 00:34 | XMS_ITS | Encounter Summary ---
Author Organization [facility] Address [address] [place] [address] Care Team Providers Care Tray Drier Operator Name Role Phone Carrington Calderon MD Primary Care Provi anders Encounter Details Date Type Department Care Team (Late st Contact Info) Description 12/04/2021 Orders Only [facility] Adult Primary Care - [place] [address] [place], [place] [phone] Carrington Calderon MD 1 [facility] Level [address] [place] [phone] Social History Tobacco Use Types Packs/Day Years [...] more drinks on one occasion? Never 11/20/2020 PHQ-2 Answer Date Recorded PHQ-2 SUBTOTAL 0 10/02/2020 Hunger Vital Sign Answer Date Recorded Within the past 12 months, y ou worried that your food would run out before you got the money to buy more. Never true 11/26/19 20 Within the past 12 months, t he food you bought just didn't last and you didn't have money to get more. Never true 11/26/2019 Interpersonal Safety Answer Date Record ed Physically Hurt Never 01/06/2020 Verbally Threaten Never 01/06/2020 Sex and Gender Information Value Date Recorded [...] DAILY MAX 4 TABLETS (200MG) 30 Tablet 12/04/2021 01/11/2022 documented in this encounter Plan of Treatment Upcoming Encounters Date Type Department Care Team (Late st Contact Info) Description 02/21/2024 9:45 EDT Office Visit [facility] Adult Primary Care - [place] [address] [place], [place] [phone] Carrington Calderon MD 1 [facility] [address] [place] [phone] 02/27/2024 8:30 EDT Telemedicine [facility] Sleep Program - [address] [phone] Rn, Sleep 02/29/2024 10:30 EDT Appointment [facility] Radiology Nuclear Medicine and PET - [address] [address] 02/29/2024 14:30 EDT Appointment [facility] Radiology Nuclear Medicine and PET [address] [address] 03/01/2024 8:00 EDT Appointment [facility] Radiology Nuclear Medicine and PET [address] [address] 03/01/2024 9:30 EDT Appointment [facility] Radiology Nuclear Medicine and PET [address] [address] documented as of this encounter Visit Diagnoses Not on filedocumented in this encounter Discontinued Medications Medication Sig Discontinue Reason Start Date End Da te traMADol (ULTRAM) 50 mg tablet TAKE 1 TABLET BY MOUTH EVERY 6 HOURS NEEDED FOR PAIN - DAILY MAX 4 TABLETS (200MG) Reorder 10/30/2021 12/04/2021 documented as of this encounter Care Teams Tray Drier Operator Relationship Specialty Start Date End Date Carrington Calderon MD [address] [place] [phone] PCP - General Internal Medicine - Primary Care 12/09/20 documented as of this encounter
--- OUTSIDE RECORDS SUMMARY | 2023-12-16 00:34 | XMS_ITS | Encounter Summary ---
Author Organization [facility] Address [address] [place] [address] Care Team Providers Care Mental Health Unit Lead Psychologist Name Role Phone Carrington Calderon MD Primary Care Provi anders Abigail Díaz Unavailable Carmelo Hendrickson Unavailable Unavailable Encounter Details Date Type Department Care Team (Late st Contact Info) Description 09/13/2022 Lab Requisition [facility] Pathology & Laboratory Medicine - [facility] [address] [place] [address] Ester Gabriel 175 [facility] [address] [place] [address] Encounter for other general examination [...] slept in a prison (including now)? No 01/13/2022 Interpersonal Safety Answer [...] Description 02/21/2024 9:45 EDT Office Visit [facility] Adult Primary Care - [address] [address]131 Carrington Calderon MD [address] [place] [phone] 02/27/2024 8:30 EDT Telemedicine [facility] Sleep Program - [address] [address] Rn, Sleep 02/29/2024 10:30 EDT Appointment [facility] Radiology Nuclear Medicine and [address] [phone] 02/29/2024 14:30 EDT Appointment [facility] Radiology Nuclear Medicine and [address] [address] 03/01/2024 8:00 EDT Appointment [facility] Radiology Nuclear Medicine and [address] [address] 03/01/2024 9:30 EDT Appointment [facility] Radiology Nuclear Medicine and PET [address] [phone] documented as of this encounter Procedures Procedure Name Priority Date/Time Associated Diagnosis Comments SURGICAL PATHOLOGY Today 09/10/2022 9: 17 EDT Encounter for other general examination documented in this encounter Results * SURGICAL PATHOLOGY (09/10/2022 9:17 EDT) Note to Patient The following pathology results have been interpreted by your pathologist and may be available to you before your health provider has had the opportunity to review them. Please allow time for your provider to receive these results and explore management options, if applicable. 09/20/2022 10:01 [facility] Final Diagnosis A. TOE, LEFT 2ND, AMPUTATION: - Acute osteomyelitis. - Disarticulated joint margin negative for acute osteomyelitis. - Skin with ulceration, cellulitis and dermal fibrosis. 09/20/2022 10:01 [facility] Attestation By the signature below, the attending physician certifies that they have 1) personally conducted a gross and/or microscopic examination of the described specimen(s), and/or personally interpreted the results of laboratory testing of the described specimen(s), and 2) personally rendered or confirmed the above diagnosis. 09/20/2022 10:01 [facility] at 1001 Clinical History Osteomyelitis 09/20/2022 10:01 [facility] Gross Description A. Received in formalin labelled with proper patient identification (initials Y, E) and left second toe is a 3.5 cm in length digit disarticulated through the interphalangeal joint. A small amount of overlying included skin is present, 2.5 x 1.6 cm. An attached nail is not identified. The distal skin surface shows a 0.7 cm area of ulceration located 0.1 cm from the skin and soft tissue resection margin. Sections through the area of ulceration show slight softening of the underlying phalangeal bone. The bone articular surface at the resection margin is without gross lesions. Cold Roll Catcher sections are submitted following acid decalcification as follows: BLOCK SHIELDS A1- perpendicular sections ulceration to include nearest skin and soft tissue margin A2- bone margin EUNICE RILEY(ASCP) 09/13/2022 13:00 09/20/2022 10:01 [facility] Performing Lab [facility] 10:01 [facility] Scanned Images 09/20/2022 10:01 [facility] Tissue TRAUMATIC AMPUTATION OF UPPER LIMB / Unknown 09/10/2022 9:17 EDT 09/13/2022 8:56 EDT Ester Gabriel PATHOLOGY ORDERABLES [facility] [address] [place] [address] documented in this encounter Visit Diagnoses Diagnosis Encounter for other general examination documented in this encounter Care Teams Mental Health Unit Lead Psychologist Relationship Specialty Start Date End Date Carrington Calderon MD 1 [facility] 1 [place] [phone] PCP - General Internal Medicine - Primary Care 12/09/20 Abigail Díaz Shipyard Painting Supervisor 04/21/23 Carmelo Hendrickson Coordinator 12/01/23 documented as of this encounter
--- OUTSIDE RECORDS SUMMARY | 2023-12-16 00:34 | XMS_ITS | Encounter Summary ---
Author Organization [facility] Address [address] [place] [address] Care Team Providers Care Medical Administrative Assistant Name Role Phone Carrington Calderon MD Primary Care Provi anders Reason for Visit * Reason Onset Date Comments No Show 04/02/2022 Encounter Details Date Type Department Care Team (Late st Contact Info) Description 04/02/2022 Telephone [facility] Adult Primary Care [facility] 1 [place], [place] [phone] Carrington Calderon MD 1 [facility] Level [address] [place] [address] No Show Social History Tobacco Use Types Packs/Day Years [...] slept in a [facility] (including now)? No 01/13/2022 Interpersonal Safety Answer [...] encounter Miscellaneous Notes * Telephone Encounter - Kamini Raya - 04/02/2022 0930 EDT 04/01/2022 Patient was a no show for a f/u for chronic pain/DM with Dr. Calderon. Called patient, but VM was full and could not leave a message. Also sent a [email or web address] message to contact the office to reschedule missed appt if she would like. 1st no show letter sent. Patient has had 2 missed no show appointments in last 12 months. 04/01/2022, 12/21/2021 and 09/28/2021. documented in this encounter Plan of Treatment Upcoming Encounters Date Type Department Care Team (Late st Contact Info) Description 02/21/2024 9:45 EDT Office Visit [facility] Adult Primary Care - [address] [address] Carrington Calderon MD [address] [phone] 02/27/2024 8:30 EDT Telemedicine [facility] Sleep Program - [address] [phone] Rn, Sleep 02/29/2024 10:30 EDT Appointment [facility] Radiology Nuclear Medicine and PET - [address] [id number] 02/29/2024 14:30 EDT Appointment [facility] Radiology Nuclear Medicine and PET - [address] 046691 03/01/2024 8:00 EDT Appointment [facility] Radiology Nuclear Medicine and PET - [address] [address] 03/01/2024 9:30 EDT Appointment [facility] Radiology Nuclear Medicine and PET - [address] [phone] documented as of this encounter Visit Diagnoses Not on filedocumented in this encounter Care Teams Medical Administrative Assistant Relationship Specialty Start Date End Date Carrington Calderon MD 1 [facility] 1 [place] [address] PCP - General Internal Medicine - Primary Care 12/09/20 documented as of this encounter
--- OUTSIDE RECORDS SUMMARY | 2023-12-16 00:34 | XMS_ITS | Encounter Summary ---
Author Organization [facility] Address [address] [place] [address] Care Team Providers Care Bar Captain Name Role Phone Carrington Calderon MD Primary Care Provi anders Abigail íDaz Unavailable Carmelo Hendrickson Unavailable Unavailable Reason for Visit * Reason Onset Date Comments Appointment Related 02/05/2022 LVM in regar ds to zomm appt. Adivised to call back for any questions or concerns. x2 Encounter Details Date Type Department Care Team (Late st Contact Info) Description 02/05/[address] [facility] Gastroenterology - [address] [phone] Scott Arzate MD 111 [facility], Level [address] [place] [address] Appointment Related (LVM in regards to zomm appt. Adivised to call back for any questions or concerns. x2) Social History Tobacco Use Types Packs/Day Years [...] 9:45 EDT Office Visit [facility] Adult Primary Care - [address] [phone] Carrington Calderon MD [address] [place] [phone] 02/27/2024 8:30 EDT Telemedicine [facility] Sleep Program - [address] [phone] Rn, Sleep 02/29/2024 10:30 EDT Appointment [facility] Radiology Nuclear Medicine and PET [address] [phone] 02/29/2024 14:30 EDT Appointment [facility] Radiology Nuclear Medicine and PET [address] [id number] 03/01/2024 8:00 EDT Appointment [facility] Radiology Nuclear Medicine and PET [address] 665781 03/01/2024 9:30 EDT Appointment [facility] Radiology Nuclear Medicine and PET [address] 909161 documented as of this encounter Visit Diagnoses Not on filedocumented in this encounter Care Teams Bar Captain Relationship Specialty Start Date End Date Carrington Calderon MD 1 [facility] 1 [place] [phone] PCP - General Internal Medicine - Primary Care 12/09/20 Abigail Díaz Collet Making Machine Operator 04/21/23 Carmelo Hendrickson Coordinator 12/01/23 documented as of this encounter
--- OUTSIDE RECORDS SUMMARY | 2023-12-16 00:35 | XMS_ITS | Encounter Summary ---
Author Organization [facility] Address [address] [place] [address] Care Team Providers Care Title Closer Name Role Phone Carrington Calderon MD Primary Care Provi anders Reason for Visit * Reason Comments Skin Ulcer * Consult (Routine) - Authorization Not Required Specialty Diagnoses / Procedures Referred By Kit goode Referred To Contact Orthopedic Surgery Diagnoses Diabetic ulcer of right great toe (HCC-CMS) Katiana Adams NP [address] [place] [address] Elza Navarro DPM [address] [place] [phone] Referral ID Status Reason Start Date Expiration Date Visits Requested Visits Authorized [id number] Authorization Not Required 1 1 Encounter Details Date Type Department Care Team (Late Contact Info) Description 09/17/2021 15:00 EDT Office Visit [facility] Foot & Ankle Program - [address] [place] [address] Fadi Barahona NP [address] [place] [address] Neuropathic diabetic ulcer of foot (HCC) (Primary Dx); Type 2 diabetes mellitus with diabetic polyneuropathy, with long-term current use of insulin (HCC-CMS) (HCC) Social History Tobacco Use Types Packs/Day Years [...] as of this encounter Progress Notes * Jun Fadi GUSTAVO Saenz - 09/17/2021 1500 EDT Images from the original note were not included. Diagnosis: ICD-10-CM ICD-9-CM 1. Neuropathic diabetic ulcer of foot ([facility]) E11.40 250.60 OFFLOADING SURGICAL SHOE (L3260) E11.621 250.80 L97.509 357.2 707.15 right great toe 2. Type 2 diabetes mellitus with diabetic polyneuropathy, with long-term current use of insulin ([facility]) ([facility]) E11.42 250.60 OFFLOADING SURGICAL SHOE (L3260) Z79.4 357.2 V58.67 Cristy Luo is being seen today for Skin Ulcer of the Right Great Toe We have been asked to see her in consultation by Dr. Adams HPI: Cristy Luo is a 36 y.o. female patient who presents with complaint of an open sore on her right plantar great toe. She states that, on 09/09/2021, her who checks her feet every day because she has diabetes noticed that her right foot and right ankle were swollen. 2 days later he noticed the ulcer so the next morning they went to the [facility] in [place], [place] where she was prescribed antibiotics. She does not know the name but states that she tookone a day for 7 days. Her cleans the foot with bacterial dish soap and water and then he applies a dry dressing. He states that the ulcer has improved. She was referred to this clinic for further evaluation and management of the symptoms. She has type 2 diabetes with neuropathy. It used to be managed by Mary Zafar NP, at the [facility] but, ever since Mary retired, she has had no follow-ups. She states that her hemoglobin A1c was last checked in March and was found to be high. She does not remember what it was but states that it was lower than the previous 12.5. She is really concerned about this ulcer because she underwent a left great toe amputation in July 2020 after an ulcer got infected. Work: [employer] Foot & Ankle Pain Assessment: Pain Orientation : Right Pain Location: Toe (GRT) Numeric Pain Level (Scale 1-10): 0 Pain in another site? : No Past medical history, medications and allergies were noted in [facility]. The patient did not fill out the intake form Patient Active Problem List Diagnosis Date Noted ??? Neuropathic diabetic ulcer of foot ([facility]) 09/17/2021 ??? Chronic midline low back pain without sciatica 11/26/2019 ??? Chronic left ear pain 09/04/2015 ??? Gastroparesis 08/10/2020 ??? Type 2 diabetes mellitus with diabetic polyneuropathy, with long-term current use of insulin ([facility]) ([facility]) 06/05/2020 ??? Family history of rheumatoid arthritis 09/04/2015 ??? Anxiety and depression 05/12/2010 ??? Migraine with aura and without status migrainosus, not intractable Past Medical History: Diagnosis Date ??? Abnormal [...] has a referral for therapy. ??? Diabetes ([facility]) A1c 10.3 on 11/28/2019 - poorly controlled ??? Diabetes mellitus, type 2 ([facility]) pt check blood sugars at home- [...] occasionally ??? Neuropathic diabetic ulcer of foot ([facility]) 09/17/2021 ??? Obesity, unspecified ??? Osteomyelitis ([facility]) of left great toe-s/p amputation ??? [...] Great toe- GA tolerated well. Social History Tobacco Use ??? Smoking status: Former Smoker Packs/day: 0.25 Years: 10.00 Pack years: 2.50 Types: Cigarettes Start date: 11/10/2010 ??? Smokeless tobacco: Never Used ??? Tobacco comment: 06/13/20 actively trying to quit about 5-8 [...] insurance. Testing QID. 100 Each 5 ??? flash glucose scanning reader (FREESTYLE VIGNESH 2 READER) misc 1 Device by mis (non-drug; comboroute) route continuous. 1 Each 0 ??? flash glucose sensor (FREESTYLE VIGNESH 2 SENSOR) kit 1 Device by misc (non- drug; combo route) route continuous. 6 Kit 3 ??? gabapentin (NEURONTIN) 300 mg capsule Take 300mg in the morning and 900mg in the evening 120 capsule 11 ??? insulin aspart U-100 (NOVOLOG FLEXPEN) 100 unit/mL (3 mL) injectable pen Inject 9 Units into the skin 3 times daily with meals. 30 mL 2 ??? insulin glargine (LANTUS SOLOSTAR) 100 unit/mL (3 mL) injection pen Inject 30 Units into the skin at bedtime for 90 days. (Patient taking differently: Inject 40 Units into the skin at bedtime. ) 27 mL 3 ??? insulin pen needles 31G x 5/16 [...] Daily Max:0.5 mg 30 Tablet 3 ??? Miscellaneous Medication - See Admin Instructions Dispense one lancing device, generic brand ascovered by insurance. 1 Each 0 ??? omeprazole (PRILOSEC) 20 mg capsule Take 1 capsule by mouth daily. 90 capsule 3 ??? ondansetron (ZOFRAN-ODT) 4 mg disintegrating tablet Take 1 Tablet by mouth every 8 hours as needed for Nausea. 30 Tablet 11 ??? SITagliptin (JANUVIA) 50 mg tablet Take 1 Tab by mouth daily. 90 Tab 3 ??? TENS unit and electrodes combo pack 1 Each by misc (non-drug; combo route) route daily. 1 Each 0 ??? traMADol (ULTRAM) 50 mg tablet TAKE 1 TABLET BY MOUTH EVERY 6 HOURS NEEDED FOR PAIN, DAILY MAX: 200MG 30 Tablet 0 No current facility-administered medications for this visit. Allergies Allergen Reactions ??? Citalopram Other (See Comments) suicidal ideation, approx 2012 ??? Other - See Comments Swelling of throat pomergrante ??? Advil [Ibuprofen] Hives Review of Systems A ten point review of systems was performed. Pertinent positives are listed below, all others are negative: Musculoskeletal: positive for as per HPI Vital signs: vitals were not taken for this visit. The patient reports a height of 5' 4 and a weight of 200 lbs PHYSICAL EXAM: Constitutional: NAD, Psychiatric: alert and oriented x3. Mood and affect appropriate. Good historian. Eyes: EOM are grossly normal ENT: lips are soft and moist; hearing appears intact at conversational levels Pulmonary: respiratory effort is normal Exam of the right foot/ankle: Cardiovascular: pedal pulses are palpable Neurological: epicritic sensations are markedly decreased Musculoskeletal: gait is slow and cautious; ROM about the ankle is intact; motor strength about theankle is intact Swelling: none Tenderness: none Skin exam: Ulcer on plantar great toe pad measures 0.5 x 0.2 cm; it is dry with no signs or symptoms of infection; surrounded by light callus that was gently scraped away; see picture below Prior workup of the patient: none Xrays obtained today: none ASSESSMENT: 1. Neuropathic diabetic ulcer of foot (HCC) OFFLOADING SURGICAL SHOE (L3260) right great toe 2. Type 2 diabetes mellitus with diabetic polyneuropathy, with long-term current use of insulin ([facility]) ([facility]) OFFLOADING SURGICAL SHOE (L3260) Other Orders Placed This Visit Procedures ??? Offloading Surgical Shoe (L3260) PLAN: -Wound care: antibiotic ointment followed by nonstick pad and light Kerlix gauze; she will remove the dressing at night and place a new one in the morning. She was advised to avoid washing the foot with antibacterial soap which can be very drying -Immobilization: offloading Darco shoe -Activity: weightbearing as tolerated -Comfort: rest as needed -Medications: none prescribed -Test prior to next visit: none -X-rays for next visit: none -Follow up: Return in about 2 weeks (around 10/01/2021). Signs and symptoms of skin infection for which to seek emergent care were reviewed and discussed. All the questions were answered and the patient was encouraged to call the clinic with any questions / concerns. The patient voices understanding and agrees with the plan. Dr. Kemar Lovett MD, was the attending physician in the clinic today but was not consulted duringthis visit. Cc: Requesting Provider - Dr. Adams PCP - Carrington Calderon Portions of this document have been prepared with speech recognition software or keyboard pharmacy data analyst techniques. Minor irregularities or keyboarding misprints may be present documented in this encounter Plan of Treatment Upcoming Encounters Date Type Department Care Team (Late st Contact Info) Description 02/21/2024 9:45 EDT Office Visit [facility] Adult Primary Care - [address] [address] Carrington Calderon MD [address] [phone] 02/27/2024 8:30 EDT Telemedicine [facility] Sleep Program - [address] [phone] Rn, Sleep 02/29/2024 10:30 EDT Appointment [facility] Radiology Nuclear Medicine and PET - [address] [phone] 02/29/2024 14:30 EDT Appointment [facility] Radiology Nuclear Medicine and PET - [address] [address] 03/01/2024 8:00 EDT Appointment [facility] Radiology Nuclear Medicine and PET [address] [address]851 03/01/2024 9:30 EDT Appointment [facility] Radiology Nuclear Medicine and PET - [address] [phone] documented as of this encounter Visit Diagnoses Diagnosis Neuropathic diabetic ulcer of foot (HCC-CMS)- Primary Type II or unspecified type diabetes mellitus with other specified manifestations, not stated as uncontrolled Type 2 diabetes mellitus with diabetic polyneuropathy, with long-term current use of insulin (HCC-CMS) documented in this encounter Orders Equipment Count Last Ordered Date First Orde red Date OFFLOADING SURGICAL SHOE (L3260) 1 09/18/19 22 documented in this encounter Care Teams Title Closer Relationship Specialty Start Date End Date Carrington Calderon MD 1 [facility] 1 [place] [phone] PCP - General Internal Medicine - Primary Care 12/09/20 documented as of this encounter
--- OUTSIDE RECORDS SUMMARY | 2023-12-16 00:35 | XMS_ITS | Encounter Summary ---
Author Organization [facility] Address [address] [place] [address] Care Team Providers Care [employer] Auto Rep[employer] Teacher Name Role Phone Carrington Calderon MD Primary Care Provi anders Reason for Visit * Reason Onset Date Comments Medications Refill 10/30/2021 tramadol / lo razepam Encounter Details Date Type Department Care Team (Late st Contact Info) Description 10/30/2021 Refill [facility] Adult Primary Care - [address] [phone] Carrington Calderon MD 1 [facility] Level 1 [place] [address] Medications Refill (tramadol / lorazepam) Social History Tobacco Use Types Packs/Day Years [...] Dispensed Refills Start Date End Da te LORazepam (ATIVAN) 0.5 mg tabletIndications:Anxiet y Take 1 Tablet by mouth daily as needed for Anxiety. Daily Max: 0.5 mg 30 Tablet 3 10/30/2021 11/17/2022 traMADol (ULTRAM) 50 mg tablet TAKE 1 TABLET BY MOUTH EVERY 6 HOURS NEEDED FOR PAIN - DAILY MAX 4 TABLETS (200MG) 30 Tablet 10/30/2021 12/04/2021 documented in this encounter Miscellaneous Notes * Telephone Encounter - Ethan Aquino - 10/30/2021 1008 EDT Medication(s) Requested: Lorazepam / Tramadol Preferred Pharmacy: [facility] Is patient out of medication? Yes Last Refill Date: 06.11.21 / 09.19.21 Last Visit Date with Ordering Provider: 06.11.21 Next Non-Acute Visit Date Scheduled with Care Team: No. Ethan Aquino 10/30/2021 10:09 documented in this encounter Plan of Treatment Upcoming Encounters Date Type Department Care Team (Late st Contact Info) Description 02/21/2024 9:45 EDT Office Visit [facility] Adult Primary Care [address] [address] Carrington Calderon MD [address] [place] [phone] 02/27/2024 8:30 EDT Telemedicine [facility] Sleep Program - [address] [address] Rn, Sleep 02/29/2024 10:30 EDT Appointment [facility] Radiology Nuclear Medicine and PET [address] [phone] 02/29/2024 14:30 EDT Appointment [facility] Radiology Nuclear Medicine and PET [address] 654121 03/01/2024 8:00 EDT Appointment [facility] Radiology Nuclear Medicine and PET [address] [address] 03/01/2024 9:30 EDT Appointment [facility] Radiology Nuclear Medicine and PET [address] 615221 documented as of this encounter Visit Diagnoses Diagnosis Anxiety- Primary Anxiety state, unspecified documented in this encounter Discontinued Medications Medication Sig Discontinue Reason Start Date End Da te traMADol (ULTRAM) 50 mg tablet TAKE 1 TABLET BY MOUTH EVERY 6 HOURS NEEDED FOR PAIN - DAILY MAX 4 TABLETS (200MG) Reorder 09/20/2021 10/30/2021 LORazepam (ATIVAN) 0.5 mg tabletIndications:Anxiet y Take 1 Tablet by mouth daily as needed for Anxiety. Daily Max: 0.5 mg Reorder 06/11/2021 10/30/2021 documented as of this encounter Care Teams [employer] Teacher Relationship Specialty Start Date End Date Carrington Calderon MD 1 [facility] 1 [place] [address] PCP - General Internal Medicine - Primary Care 12/09/20 documented as of this encounter
--- OUTSIDE RECORDS SUMMARY | 2023-12-16 00:35 | XMS_ITS | Encounter Summary ---
Author Organization [facility] Address [address] [place] [address] Care Team Providers Care Road Supervisor Of Engines Name Role Phone Carrington Calderon MD Primary Care Provi anders Reason for Visit * Reason Comments Medications Refill Diabetes Encounter Details Date Type Department Care Team (Late st Contact Info) Description 03/27/2021 13:30 EDT Office Visit [facility] Adult Primary Care - [address] [id number] Avelino Dowling MD [address] [place] [phone] Diabetes 1.5, managed as type 2 (HCC) (Primary Dx); Anxiety Social History Tobacco Use Types Packs/Day Years [...] Sign Reading Time Taken Comments Blood Pressure 120/62 03/27/2021 1345 EDT Pulse 112 03/27/2021 1345 EDT Temperature 36.1 ??C (97 ??F) 03/27/2021 1345 EDT Respiratory Rate 20 03/27/2021 1345 EDT Oxygen Saturation - - Inhaled Oxygen Concentration - - Weight 96 kg (211 lb 12 oz) 03/27/2021 1345 EDT Height - - Body Mass Index 36.35 11/04/2020 1406 EDT documented in this encounter Functional Status [...] End Da te gabapentin (NEURONTIN) 300 mg capsule Take 300mg in the morning and 900mg in the evening 120 capsule 1 03/27/2021 06/11/2021 lidocaine 5 % (LIDODERM) 5 % patch Place 1 Patch onto the skin daily. Patch(es) may remain in place for up to 12 hours in any 24-hour period. 30 Patch 03/27/2021 12/21/2021 LORazepam (ATIVAN) 0.5 mg tabletIndications:Anxie ty Take 1 Tablet by mouth daily as needed for Anxiety. Daily Max: 0.5 mg 30 Tablet 03/27/2021 06/11/2021 documented in this encounter Progress Notes * Avelino Dowling MD - 03/27/2021 1330 EDT [facility] DEPARTMENT OF INTERNAL MEDICINE [facility] DATE: 03/27/2021 PATIENT NAME: Cristy Luo AGE: 36 y.o. SEX: female REASON FOR OFFICE VISIT: Chief Complaint Patient presents with ??? Medications Refill ??? Diabetes SUBJECTIVE: INTERVAL HISTORY: Stella Luo is a 36-year-old female with a PMH of migraine with aura, anxiety, depression, type 2 diabetes with diabetic foot ulcer, hx of ectopic , osteomyelitis of great toe of left foot, chronic midline low back pain without sciatica for medication refill. No acute complains. Patient came to clinic and requested for refill for medications including Lorazepam 0.5 mg PO whichshe takes as needed for anxiety due to quitting marijuana, and Tramadol 50 mg once a day (which sheuses for chronic back pain). On chart review and as per pt, she has not been using tramadol consistently. She also reports that she uses lorazepam as needed for her anxiety. Patient's PCP has changed and She will meet her new PCP on 05/04 to establish care. Her PCP orderedlorazepam for 4 days on mar 17. We discussed that lorazepam and tramadol(opioids) are controlled substances and cannot prescribed together unless PCP decides to do so, and that lidocaine patch can be prescribed for back pain. Patient agreed that she will use lidocaine patch for back pain. Patient's gabapentin was changed in the chart as she takes 1 tablet (300 mg) in the morning and 3 tablets (900 mg) at night Hb A1C is pending for the last 4 months. Patient agreed to have the lab drawn today. Denies chest pain, shortness of breath, palpitations pr dizziness, fever, chills, N/V, or any pain. ROS: A 10-point review of systems was performed. The patient answered negative to all questions with the exceptions of those explicitly detailed as positives in the HPI. Pertinent negatives are also explicitly stated in the HPI. Patient Active Problem List Diagnosis ??? Migraine with aura and without status migrainosus, not intractable ??? Anxiety and depression ??? Type 2 diabetes mellitus (HCC) ??? Chronic left ear pain ??? Family history of rheumatoid arthritis ??? Cellulitis of great toe of left foot ??? Chronic midline low back pain without sciatica ??? Diabetic foot infection (HCC-CMS) ([facility]) ??? Diabetic foot ulcer (HCC-CMS) ([facility]) ??? Diabetic foot ulcer associated with diabetes mellitus due to underlying condition (HCC-CMS) ([facility]) ??? Osteomyelitis of great toe of left foot (HCC-CMS) ([facility]) ??? 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 (HCC-CMS) ([facility]) ??? Osteomyelitis of toe of left foot (HCC) ??? Type 2 diabetes mellitus with diabetic polyneuropathy, with long-term current use of insulin (HCC-CMS) ([facility]) ??? Hx of ectopic ??? Admission for sterilization ??? Gastroparesis ??? Intractable vomiting ??? Vomiting Medications Prior to Today's Visit Medication Sig ??? acetaminophen (TYLENOL) 325 mg tablet Take 2 Tabs by mouth every 4 hours as needed for Pain. ??? blood glucose meter One Touch Verio Flex meter. ??? blood glucose test strips Brand: FreeStyle Precision Cristo, use as directed if Freestyle Vignesh censor isnt working ??? blood glucose test strips One Touch Verio IQ or other brand compatible with meter and covered by patient's insurance. Testing QID. ??? capsaicin (ZOSTRIX) 0.025 % topical cream Apply up to 2 times daily over abdomen, shoulders andarms as needed for abdominal pain and nausea (Patient not taking: Reported on 10/22/2020) ??? flash glucose scanning reader (FREESTYLE VIGNESH 2 READER) misc 1 Device by misc (non-drug; comboroute) route continuous. ??? flash glucose sensor (FREESTYLE VIGNESH 2 SENSOR) kit 1 Device by [facility] [place] (non- drug; combo route) route continuous. ??? gabapentin (NEURONTIN) 100 mg capsule Take 1 capsule by mouth 2 times daily before breakfast and lunch. (Patient not taking: Reported on 03/27/2021) ??? gabapentin (NEURONTIN) 300 mg capsule Take 1 capsule by mouth daily. Take 1 cap in the evening.(In addition to 100mg gabapentin twice daily) (Patient taking differently: Take 300 mg by mouth daily. 900 mg at night and 300 mg in am) ??? insulin aspart U-100 (NOVOLOG FLEXPEN) 100 unit/mL (3 mL) injectable pen Inject 9 Units into the skin 3 times daily with meals. ??? insulin glargine (LANTUS SOLOSTAR) 100 unit/mL (3 mL) injection pen Inject 30 Units into the skin at bedtime for 90 days. (Patient taking differently: Inject 40 Units into the skin at bedtime. ) ??? insulin glargine (LANTUS SOLOSTAR/SEMGLEE) 100 unit/mL (3 mL) injection pen Inject into the skin at bedtime. 40 units at bedtime ??? insulin pen needles 31G x 5/16 Use 1 pen needle as directed 4 times daily. ??? lancets Brand: Freestyle, use as directed if Freestyle Vignesh censor isnt working ??? lancets One Touch Delica or other brand compatible with lancing device and covered by patient'sinsurance. ??? lidocaine 5 % (LIDODERM) 5 % patch Place 1 Patch onto the skin daily. Patch(es) may remain in place for up to 12 hours in any 24-hour period. (Patient not taking: Reported on 11/04/2020) ??? LORazepam (ATIVAN) 0.5 mg tablet Take 1 Tablet by mouth 3 times daily as needed for Anxiety. Daily Max: 1.5 mg ??? mirtazapine (REMERON) 15 mg tablet Take 1 Tab by mouth at bedtime. (Patient not taking: Reported on 03/27/2021) ??? Miscellaneous Medication - See Admin Instructions Dispense one lancing device, generic brand ascovered by insurance. (Patient not taking: Reported on 03/27/2021) ??? nicotine (NICODERM CQ) 7 mg/24 hr patch Apply one patch only daily on skin without hair. Apply to a different skin site at the same time each day. (Patient not taking: Reported on 11/20/2020) ??? omeprazole (PRILOSEC) 20 mg capsule Take 1 capsule by mouth daily. ??? SITagliptin (JANUVIA) 50 mg tablet Take 1 Tab by mouth daily. ??? TENS unit and electrodes combo pack 1 Each by misc (non-drug; combo route) route daily. ??? traMADol (ULTRAM) 50 mg tablet Take 1 Tab by mouth every 6 hours as needed for Pain. Daily Max:200 mg No facility-administered medications prior to visit. OBJECTIVE: BP 120/62 Pulse (!) 112 Temp 36.1 ??C (97 ??F) (Tympanic) Resp 20 Wt 96 kg (211 lb 12 oz) BMI 36.35 kg/m?? Estimated body mass index is 36.35 kg/m?? as calculated from the following: Height as of 11/04/20: 162.6 cm (64). Weight as of this encounter: 96 kg (211 lb 12 oz). VITALS: Reviewed General: Comfortable, cooperative and in no apparent distress HEENT: PERRLA, EOMI, no conjunctival icterus, oral mucosa is moist without apparent lesions LYMPH: No cervical, supraclavicular lymphadenopathy CARDIOVASCULAR: Regular rate and rhythm, S1S2, no murmurs, rubs or gallops; radial, dorsalis pedis and posterior tibial pulses strong and equal bilaterally LUNGS: No accessory muscle use on respiration, clear to auscultation bilaterally ABDOMEN: Soft, non-tender, non distended, no hepatosplenomegaly appreciated EXTREMITIES, SKIN: No edema, no discoloration or apparent lesions, no calf tenderness NEURO: Alert and oriented x3, normal gait PSYCH: Normal mood, congruent affect. Answers questions appropriately. ASSESSMENT AND PLAN: Miss Luo is a 36-year-old female with a PMH of migraine with aura, anxiety, depression, type 2 diabetes with diabetic foot ulcer, hx of ectopic , osteomyelitis of great toe of left foot, chronic midline low back pain without sciatica here for medication refill. She has not been using tramadol consistently and takes it as needed. She also reports that she useslorazepam as needed for her anxiety. -HbA1C -Provided 30 day supply of lorazepam 0.5 mg -Lidocaine patch for 30 days -Follow up with PCP, already scheduled in 5 weeks (05/04) There are no diagnoses linked to this encounter. HEALTH MAINTENANCE: DISPOSITION: in 5 weeks with PCP (already scheduled) Patient staffed with Dr. Brandon Dowling MD Internal Medicine, PGY-1 Pager: *[phone] or cortex I spent a total of 50 minutes on the date of this encounter meeting with the patient and reviewing documentation/coordinating care as described in the above note. No procedures were performed at the time of the visit. * Catherine Liz MD - 03/27/2021 3699 EDT I have discussed and seen the patient with Dr. Dowling at the time of the visit. I agree with the findings and the plan of care. D/w her that we will only Rx short fill of lorazepam with the expectationthis will take her through until she sees her new PCP to establish care in a month. I CC'd her new PCP a copy of the note as well. Since the tramadol had not been filled since November and she was only gi shena 30 days supply will hold off on refilling this since she was not taking this regularly. Catherine Taylor MD 04/03/2021 11:56 documented in this encounter Plan of Treatment Upcoming Encounters Date Type Department Care Team (Late st Contact Info) Description 02/21/2024 9:45 EDT Office Visit [facility] Adult Primary Care - [address] [phone] Carrington Calderon MD [address] [place] [phone] 02/27/2024 8:30 [address] [facility] Sleep Program - [address] [phone] Rn, Sleep 02/29/2024 10:30 EDT Appointment [facility] Radiology Nuclear Medicine and PET [address] [id number] 02/29/2024 14:30 EDT Appointment [facility] Radiology Nuclear Medicine and PET [address] [address] 03/01/2024 8:00 EDT Appointment [facility] Radiology Nuclear Medicine and PET [address] [id number] 03/01/2024 9:30 EDT Appointment [facility] Radiology Nuclear Medicine and PET [address] [id number] documented as of this encounter Visit Diagnoses Diagnosis Diabetes 1.5, managed as type 2 ([facility])- Primary Type II or unspecified type diabetes mellitus without mention of complication, not stated as uncontrolled Anxiety Anxiety state, unspecified documented in this encounter Discontinued Medications Medication Sig Discontinue Reason Start Date End Da te capsaicin (ZOSTRIX) 0.025 % topical cream Apply up to 2 times daily over abdomen, shoulders and arms as needed for abdominal pain and nausea Side effects 10/01/2020 03/27/2021 lidocaine 5 % (LIDODERM) 5 % patch Place 1 Patch onto the skin daily. Patch(es) may remain in place for up to 12 hours in any 24-hour period. Therapy completed 10/22/2020 03/27/2021 mirtazapine (REMERON) 15 mg tablet Take 1 Tab by mouth at bedtime. Alternate therapy 10/10/2020 03/27/2021 nicotine (NICODERM CQ) 7 mg/24 hr patch Apply one patch only daily on skin without hair. Apply to a different skin site at the same time each day. Therapy completed 06/13/2020 03/27/2021 gabapentin (NEURONTIN) 100 mg capsule Take 1 capsule by mouth 2 times daily before breakfast and lunch. Alternate therapy 12/04/2020 03/27/2021 gabapentin (NEURONTIN) 300 mg capsule Take 1 capsule by mouth daily. Take 1 cap in the evening. (In addition to 100mg gabapentin twice daily) 12/04/2020 03/27/2021 LORazepam (ATIVAN) 0.5 mg tabletIndications:Anxi ety Take 1 Tablet by mouth 3 times daily as needed for Anxiety. Daily Max: 1.5 mg Reorder 03/17/2021 03/27/2021 documented as of this encounter Historical Medications * This list may reflect changes made after this encounter. Medication Sig Dispensed Refills Start Date End Date insulin glargine (LANTUS SOLOSTAR/SEMGLEE) 100 unit/mL (3 mL) injection pen Inject into the skin at bedtime. 40 units at bedtime 06/11/2021 added in this encounter Care Teams Road Supervisor Of Engines Relationship Specialty Start Date End Date Carrington Calderon MD [address] [facility] [address] [place] [phone] PCP - General Internal Medicine - Primary Care 12/09/20 documented as of this encounter
--- OUTSIDE RECORDS SUMMARY | 2023-12-16 00:35 | XMS_ITS | Encounter Summary ---
Author Organization [facility] Address [address] [place] [address] Care Team Providers Care Lithopone Charger Name Role Phone Carrington Calderon MD Primary Care Provi anders Reason for Visit * Reason Comments Medication Management Encounter Details Date Type Department Care Team (Late st Contact Info) Description 06/11/2021 9:45 EST Office Visit [facility] - [place] [address] [place], [place] [phone] Carrington Calderon MD 1 [facility] Level 1 [place] [phone] Type 2 diabetes mellitus with hyperosmolarity without coma, with long-term current use of insulin ([facility]) ([facility]) (Primary Dx); Anxiety; Chronic midline low back pain without sciatica; Anxiety and depression; Gastroparesis; Diabetic polyneuropathy associated with type 2 diabetes mellitus ([facility]) (HCC); Mid back pain Social History Tobacco Use Types Packs/Day Years [...] Sign Reading Time Taken Comments Blood Pressure 118/70 06/11/2021 0951 EST Pulse 70 06/11/2021 0951 EST Temperature 36.4 ??C (97.5 ??F) 06/11/2021 0951 EST Respiratory Rate 20 06/11/2021 0951 EST Oxygen Saturation - - Inhaled Oxygen Concentration - - Weight 95.7 kg (211 lb) 06/11/2021 0951 EST Height 162.6 cm (5' 4) 06/11/2021 0951 EST Body Mass Index 36.22 06/11/2021 0951 EST documented in this encounter Functional Status [...] this encounter Patient Instructions * Patient Instructions* Carrington Calderon MD - 06/11/2021 9:45 EST For the gastroparesis: -Continue taking Reglan once per day -At the first sign of any symptoms of nausea or vomiting, increase this to 3 times a day -In addition, you can take Zofran as needed -If symptoms do not respond within 24 hours, seek care in the emergency department For the diabetes -Down the [employer] [facility] -If you have trouble using this to connect to your device, let me know documented in this encounter Ordered Prescriptions Prescription Sig Dispensed Refills Start Date End Da te ondansetron (ZOFRAN-ODT) 4 mg disintegrating tabletIndications:Gastro paresis Take 1 Tablet by mouth every 8 hours as needed for Nausea. 30 Tablet 11 06/11/2021 12/21/2021 LORazepam (ATIVAN) 0.5 mg tabletIndications:Anxiet y Take 1 Tablet by mouth daily as needed for Anxiety. Daily Max: 0.5 mg 30 Tablet 3 06/11/2021 10/30/2021 gabapentin (NEURONTIN) 300 mg capsuleIndications:Diabe tic polyneuropathy associated with type 2 diabetes mellitus (HCC-CMS) Take 300mg in the morning and 900mg in the evening 120 capsule 1 06/11/2021 08/25/2021 documented in this encounter Progress Notes * Carrington Calderon MD - 06/11/2021 0945 EST Primary Care Office Visit Assessment & Plan Diagnoses and all orders for this visit: Type 2 diabetes mellitus with hyperosmolarity without coma, with long-term current use of insulin (HCC-CMS) ([facility]): By description, it sounds like glucose is responding well to the changes that were made last year. However, she does not have her freestyle mitul readings available today, and we do not have a recent A1c. I recommended getting an A1c as soon as she is able. I have sent an order to [place]. - HEMOGLOBIN A1C Anxiety: Continue lorazepam for now. Will discuss treatment options in future visits. We will have to approach antidepressant therapy with caution given her prior response to citalopram. - LORazepam (ATIVAN) 0.5 mg tablet Chronic midline low back pain without sciatica: No response to PT. Certainly her very high weight in the past could contribute to arthritis or listhesis. Exaggerated lordosis brings to mind the possibility of listhesis. Recommended x- rays of the lumbar spine. Order sent to [place]. - XR LUMBAR SPINE 2-3 VIEWS Anxiety and depression Gastroparesis: The addition of Zofran 3 times a day regardless of symptoms is possibly excessive. Having gone for 2 months without any symptoms I would think it is a relative indicator of success of her suppressive treatment. We may not be able to prevent flares completely. I advised that, instead of taking Zofran 3 times a day every day, that she continue her metoclopramide daily, and that she increase this to 3 times a day if symptoms begin to flare. She can take Zofran as needed on top of this. If symptoms do not respond within 24 hours, she should be seen in the emergency department. - ondansetron (ZOFRAN-ODT) 4 mg disintegrating tablet - AMB CONS/FOLLOW UP GASTROENTEROLOGY Diabetic polyneuropathy associated with type 2 diabetes mellitus (HCC-CMS) ([facility]): Symptoms persist.Continue gabapentin. - gabapentin (NEURONTIN) 300 mg capsule Mid back pain - XR THORACIC SPINE 2 VIEWS Return for 6-8 wks, DM, anxiety, back pain. Patient education was direct. Barriers were assessed and addressed as needed. I spent a total of 45 minutes on the date of this encounter meeting with the patient and reviewing documentation/coordinating care as described in the above note. Unless otherwise noted, no procedures were performed at the time of the visit. Subjective Stella is a 36 y.o. female presenting with Medication Management HPI This is my first visit with Stella. She previously saw Tonja Alejandro. She has history of diabetes, which has been described as type II versus type 1.5. Her last visit with Tonja Alejandro was in November of this year for acute on chronic low back pain. Today, we discussed several issues. -Stella has chronic gastroparesis symptoms. This was confirmed with a nuclear medicine study earlier this year. Symptoms had previously been characterized by nausea and vomiting nearly 50% of the time. She was started on metoclopramide daily, as well as instructed to avoid dietary triggers. With this combination of interventions, her symptoms reduced significantly, with an initial 50% reduction or so and frequency of symptoms, and then eventually reduction to having no symptoms between March and. Last week, she was seen in the emergency department in [place] for recurrence ofintractable nausea and vomiting with severe dehydration. She had continue to take her metoclopramide, and took some Zofran when symptoms began. However, symptoms persisted. On day 3, she was eventually seen. At the time, she was prescribed Zofran standing 3 times a day with meals. -For her diabetes, she was diagnosed at age 25. She has been on insulin for quite a long time. She has lost a total of around 300 pounds with lifestyle interventions, with some improvement. However, she remains insulin-dependent. Last year, Januvia and mealtime NovoLog were added to her regimen in response to an A1c of 9.7 in July. She has not had an A1c since. She uses a freestyle mitul, gets readings in the 110s to 150s usually. -She has chronic midline low back pain, which she attributes possibly to having excess skin around her midsection from her weight loss. She has no radiation into the legs. She feels that she has an exaggerated lordosis in the lower spine. Pain is exacerbated by twisting. She has done PT, pool therapy, without significant response. Tramadol in the evening has been helpful, especially in combination with Tylenol. Nonetheless, she has pain more or less 75% of the time. She avoids NSAIDs because ofa stated allergy. -She has history of toe amputation in the setting with diabetic foot infection last year. This has healed. -She also has chronic anxiety. She has taken citalopram in the past, which which she reports seemedto paradoxically make her symptoms worse, resulting in an admission for severe depression. She takes lorazepam daily for this. Data reviewed this visit: problem list/past medical history, current medications, allergies, last visit note and recent labs ROS - See HPI Objective BP 118/70 Pulse 70 Temp 36.4 ??C (97.5 ??F) (Tympanic) Resp 20 Ht 162.6 cm (64) Wt 95.7 kg (211 lb) BMI 36.22 kg/m?? Physical Exam Constitutional: Appearance: She is well-developed and well-nourished. Cardiovascular: Rate and Rhythm: Normal rate and regular rhythm. Heart sounds: No murmur heard. No friction rub. No gallop. Pulmonary: Effort: Pulmonary effort is normal. Breath sounds: Normal breath sounds. No wheezing, rhonchi or rales. Musculoskeletal: Comments: Diffuse midline and paraspinal low spine tenderness. Psychiatric: Mood and Affect: Mood and affect normal. Behavior: Behavior normal. documented in this encounter Plan of Treatment Upcoming Encounters Date Type Department Care Team (Late st Contact Info) Description 02/21/2024 9:45 EDT Office Visit [facility] - [address] [phone] Carrington Calderon MD [address] [place] [phone] 02/27/2024 8:30 EDT Telemedicine [facility] Sleep Program - [address] [phone] Rn, Sleep 02/29/2024 10:30 EDT Appointment [facility] Radiology Nuclear Medicine and PET [address] [id number] 02/29/2024 14:30 EDT Appointment [facility] Radiology Nuclear Medicine and PET - [address] [id number] 03/01/2024 8:00 EDT Appointment [facility] Radiology Nuclear Medicine and PET [address] [phone] 03/01/2024 9:30 EDT Appointment [facility] Radiology Nuclear Medicine and PET [address] [phone] documented as of this encounter Visit Diagnoses Diagnosis Type 2 diabetes mellitus with hyperosmolarity without coma, with long-term current use of insulin ([facility])- Primary Anxiety Anxiety state, unspecified Chronic midline low back pain without sciatica Anxiety and depression Dysthymic disorder Gastroparesis Diabetic polyneuropathy associated with type 2 diabetes mellitus ([facility]) Mid back pain Backache, unspecified documented in this encounter Discontinued Medications Medication Sig Discontinue Reason Start Date End Da te insulin glargine (LANTUS SOLOSTAR/SEMGLEE) 100 unit/mL (3 mL) injection pen Inject into the skin at bedtime. 40 units at bedtime 06/11/2021 LORazepam (ATIVAN) 0.5 mg tabletIndications:Anxiety Take 1 Tablet by mouth daily as needed for Anxiety. Daily Max: 0.5 mg Reorder 03/27/2021 06/11/2021 gabapentin (NEURONTIN) 300 mg capsule Take 300mg in the morning and 900mg in the evening Reorder 03/27/2021 06/11/2021 ondansetron (ZOFRAN-ODT) 4 mg disintegrating tablet Take 4 mg by mouth every 8 hours as needed for Nausea. Reorder 06/11/2021 documented as of this encounter Historical Medications * This list may reflect changes made after this encounter. Medication Sig Dispensed Refills Start Date End Date ondansetron (ZOFRAN-ODT) 4 mg disintegrating tablet Take 4 mg by mouth every 8 hours as needed for Nausea. 06/11/2021 added in this encounter Care Teams Lithopone Charger Relationship Specialty Start Date End Date Carrington Calderon MD 1 [facility] Level [address] [place] [phone] PCP - General Internal Medicine - Primary Care 12/09/20 documented as of this encounter
--- OUTSIDE RECORDS SUMMARY | 2023-12-16 00:35 | XMS_ITS | Encounter Summary ---
Author Organization [facility] Address [address] [place] [address] Care Team Providers Care Assistant Distribution Manager Name Role Phone Carrington Calderon MD Primary Care Provi anders Reason for Visit * Reason Onset Date Comments Medications Refill 11/30/2021 Encounter Details Date Type Department Care Team (Late st Contact Info) Description 11/30/2021 Refill [facility] Adult Primary [facility] [address] [phone] Carrington Calderon MD 1 [facility] Level 1 [place] [phone] Medications Refill Social History Tobacco [...] Telephone Encounter - Carrington Calderon MD - 12/04/2021 1312 EDT Prescription filled. Needs to be seen before next fill. * Telephone Encounter - Landon Alma Rosa - 12/04/2021 0918 EDT Patient called back to check on this, patient is going on vacation tomorrow 12/05 and gets back on 12/19. Patient is willing to schedule an appointment but we do not have anything today. Patient states she is going to be in a car for 4 days and she really needs this medication for her back while traveling. Please advise, patient is scheduled for 12/21. * Telephone Encounter - Carrington Calderon MD - 12/02/2021 1516 EDT Unfortunately we cannot continue to fill this. I have only seen her once and she no-showed her onlysubsequent visit. She will need to be seen here for further prescription of this controlled substance. Thanks. * Telephone Encounter - Alma Rosa Navarrete - 11/30/2021 1035 EDT Medication(s) Requested: Tramadol 50mg Preferred Pharmacy: [facility] Is patient out of medication? No Last Refill Date: 10/30/21 Last Visit Date with Ordering Provider: 06/11/21 Next Non-Acute Visit Date Scheduled with Care Team: No. Alma Rosa Navarrete 11/30/2021 10:35 documented in this encounter Plan of Treatment Upcoming Encounters Date Type Department Care Team (Late st Contact Info) Description 02/21/2024 9:45 EDT Office Visit [facility] Adult Primary [facility] - [address] [phone] Carrington Calderon MD 1 [facility] 1 [place] [phone] 02/27/2024 8:30 EDT Telemedicine [facility] Sleep Program - [address] [phone] Rn, Sleep 02/29/2024 10:30 EDT Appointment [facility] Radiology Nuclear Medicine and PET - [address] [phone] 02/29/2024 14:30 EDT Appointment [facility] Radiology Nuclear Medicine and PET - [address] [id number] 03/01/2024 8:00 EDT Appointment [facility] Radiology Nuclear Medicine and PET - [address] [address] 03/01/2024 9:30 EDT Appointment [facility] Radiology Nuclear Medicine and PET - [address] [phone] documented as of this encounter Visit Diagnoses Not on filedocumented in this encounter Care Teams Assistant Distribution Manager Relationship Specialty Start Date End Date Carrington Calderon MD 1 [facility] 1 [place] [phone] PCP - General Internal Medicine - Primary Care 12/09/20 documented as of this encounter
--- OUTSIDE RECORDS SUMMARY | 2023-12-16 00:35 | XMS_ITS | Encounter Summary ---
Author Organization [facility] Address [address] [place] [address] Care Team Providers Care Oil Prospecting Observer Name Role Phone Carrington Calderon MD Primary Care Provi anders Reason for Visit * Reason Onset Date Comments No Show 09/28/2021 Encounter Details Date Type Department Care Team (Late st Contact Info) Description 09/28/2021 Telephone [facility] Adult Primary Care [address] [phone] Carrington Calderon MD 1 [facility] Level 1 [place] [phone] No Show Social History Tobacco [...] * Telephone Encounter - Karen Trujillo - 09/29/2021 0717 EDT Patient has had 3 no shows. Patient received no show letter 1. No show letter 2 mailed. * Telephone Encounter - Nichole Márquez - 09/28/2021 1503 EDT Patient No Showed appointment today with Dr Calderon documented in this encounter Plan of Treatment Upcoming Encounters Date Type Department Care Team (Late st Contact Info) Description 02/21/2024 9:45 EDT Office Visit [facility] Adult Primary Care - [address] [phone] Carrington Calderon MD [address] [phone] 02/27/2024 8:30 EDT Telemedicine [facility] Sleep Program - [address] [phone] Rn, Sleep 02/29/2024 10:30 EDT Appointment [facility] Radiology Nuclear Medicine and PET [address] [phone] 02/29/2024 14:30 EDT Appointment [facility] Radiology Nuclear Medicine and PET [address] [id number] 03/01/2024 8:00 EDT Appointment [facility] Radiology Nuclear Medicine and PET [address] [id number] 03/01/2024 9:30 EDT Appointment [facility] Radiology Nuclear Medicine and PET [address] [phone] documented as of this encounter Visit Diagnoses Not on filedocumented in this encounter Care Teams Oil Prospecting Observer Relationship Specialty Start Date End Date Carrington Calderon MD [address] [place] [phone] PCP - General Internal Medicine - Primary Care 12/09/20 documented as of this encounter
--- OUTSIDE RECORDS SUMMARY | 2023-12-16 00:35 | XMS_ITS | Encounter Summary ---
Author Organization [facility] Address [address] [place] [address] Care Team Providers Care Wildlife Ecology Professor Name Role Phone Carrington Calderon MD Primary Care Provi anders Reason for Visit * Reason Comments Other Encounter Details Date Type Department Care Team (Late st Contact Info) Description 03/16/2021 [facility] Adult Primary Care [facility] 1 [place], [place] [address] Carrington Calderon MD 1 [facility] Level 1 [place] [phone] Other Social History Tobacco Use Types Packs/Day Years [...] 02/21/2024 9:45 EDT Office Visit [facility] Adult Primary Care - [address] [phone] Carrington Calderon MD 1 [facility] 1 [place] [phone] 02/27/2024 8:30 EDT Telemedicine [facility] Sleep Program - [address] [phone] Rn, Sleep 02/29/2024 10:30 EDT Appointment [facility] Radiology Nuclear Medicine and PET - [address] [address] 02/29/2024 14:30 EDT [facility] Radiology Nuclear Medicine and PET - [address] [address] 03/01/2024 8:00 EDT [facility] Radiology Nuclear Medicine and PET - [address] [address] 03/01/2024 9:30 EDT Appointment [facility] Radiology Nuclear Medicine and PET - [address] [address] documented as of this encounter Visit Diagnoses Not on filedocumented in this encounter Care Teams Wildlife Ecology Professor Relationship Specialty Start Date End Date Carrington Calderon MD 1 [facility] 1 [place] [phone] PCP - General Internal Medicine - Primary Care 12/09/20 documented as of this encounter
--- OUTSIDE RECORDS SUMMARY | 2023-12-16 00:35 | XMS_ITS | Encounter Summary ---
Author Organization [facility] Address [address] [place] [address] Care Team Providers Care Vp Strategic Planning Name Role Phone Carrington Calderon MD Primary Care Provi anders Reason for Visit * Reason Onset Date Comments Emesis 11/16/2021 24 hours- vomitt ing/ toe infection Encounter Details Date Type Department Care Team (Late st Contact Info) Description 11/16/2021 Telephone [facility] Adult Primary Care - [address] [phone] Carrington Calderon MD 1 [facility] Level 1 [place] [phone] Emesis (24 hours- vomitting/ toe infection) Social History Tobacco Use Types Packs/Day Years [...] Telephone Encounter - Carrington Calderon MD - 11/16/2021 1538 EDT OK. Thanks. * Telephone Encounter - Jackie Madsen RN - 11/16/2021 1339 EDT Spoke with Fermin, he reports pt has not improved and he is going home to take her to the [facility] ED. Let him know that PCP's last OV note stated that pt should be seen in an OV if vomiting for more than 24 hours. He reports they would like a referral to the foot Dr, normally goes to [facility]. (Looks like pt missed OV.)They will call them to schedule OV. Instructed to call back and schedule f/u OV and to have foot assessed after ED visit. She is overdue for OV, he reports understanding and that they will call to schedule. The patient's indicates understanding of these issues and agrees with the plan. No barriersnoted. Updating PCP, of note pt has missed OV here, last seen 06/11/21. Also missed OV at [facility]. * Telephone Encounter - Olive Munguia - 11/16/2021 1033 EDT Reason for Call: Emesis (24 hours- vomitting/ toe infection) Summary/Symptoms: Vomitting for 24 hours, dehydrated, toe infection- doesn't know if fever Onset and Duration? 11/15/21- vomitting Toe issue started 1.5-2 weeks ongoing Appointment Offered? N/A No same day available- would like advice- they live 2 hours away. is calling - she is resting now, please call Fermin back Olive Munguia 11/16/2021 10:34 documented in this encounter Plan of Treatment Upcoming Encounters Date Type Department Care Team (Late st Contact Info) Description 02/21/2024 9:45 EDT Office Visit [facility] Adult Primary Care - [address] [phone] Carrington Calderon MD [address] [place] [address] 1 [place] [phone] 02/27/2024 8:30 EDT Telemedicine [facility] Sleep Program - [address] [phone] Rn, Sleep 02/29/2024 10:30 EDT Appointment [facility] Radiology Nuclear Medicine and PET - [address] [phone] 02/29/2024 14:30 EDT [facility] Radiology Nuclear Medicine and PET - [address] [address] 03/01/2024 8:00 EDT Appointment [facility] Radiology Nuclear Medicine and PET - [address] [address] 03/01/2024 9:30 EDT Appointment [facility] Radiology Nuclear Medicine and PET - [address] [address] documented as of this encounter Visit Diagnoses Not on filedocumented in this encounter Care Teams Vp Strategic Planning Relationship Specialty Start Date End Date Carrington Calderon MD 1 [facility] 1 [place] [phone] PCP - General Internal Medicine - Primary Care 12/09/20 documented as of this encounter
--- OUTSIDE RECORDS SUMMARY | 2023-12-16 00:35 | XMS_ITS | Encounter Summary ---
Author Organization [facility] Address [address] [place] [address] Care Team Providers Care Motor Rebuilder Name Role Phone Carrington Calderon MD Primary Care Provi anders Reason for Visit * Reason Onset Date Comments Medications Refill 08/25/2021 Encounter Details Date Type Department Care Team (Late st Contact Info) Description 08/25/2021 Refill [facility] Adult Primary Care [address] [phone] Carrington Calderon MD 1 [facility] Level 1 [place] [phone] Medications Refill Social History Tobacco Use Types [...] FOR PAIN, DAILY MAX: 200MG 30 Tablet 08/25/2021 09/20/2021 gabapentin (NEURONTIN) 300 mg capsuleIndications:Diabe tic polyneuropathy associated with type 2 diabetes mellitus (HCC-CMS) Take 300mg in the morning and 900mg in the evening 120 capsule 11 08/25/2021 10/15/2022 documented in this encounter Miscellaneous Notes * Telephone Encounter - Karen Trujillo - 08/25/2021 0836 EDT Medication(s) Requested: Gabapentin, Tramadol Preferred Pharmacy: [facility] Is patient out of medication? Yes Last Refill Date: 06/11/2021, 07/10/2021 Last Visit Date with Ordering Provider: 06/11/2021 Next Non-Acute Visit Date Scheduled with Care Team: Yes. Karen Trujillo 08/25/2021 8:36 documented in this encounter Plan of Treatment Upcoming Encounters Date Type Department Care Team (Late st Contact Info) Description 02/21/2024 9:45 EDT Office Visit [facility] Adult Primary Care - [address] [address] Carrington Calderon MD [address] [place] [phone] 02/27/2024 8:30 EDT Telemedicine [facility] Sleep Program - [address] [address] Rn, Sleep 02/29/2024 10:30 EDT Appointment [facility] Radiology Nuclear Medicine and PET [address] [address] 02/29/2024 14:30 EDT Appointment [facility] Radiology Nuclear Medicine and PET [address] [address] 03/01/2024 8:00 EDT Appointment [facility] Radiology Nuclear Medicine and PET [address] [address] 03/01/2024 9:30 EDT Appointment [facility] Radiology Nuclear Medicine and PET [address] [phone] documented as of this encounter Visit Diagnoses Diagnosis Diabetic polyneuropathy associated with type 2 diabetes mellitus (HCC-CMS)- Primary documented in this encounter Discontinued Medications Medication Sig Discontinue Reason Start Date End Da te gabapentin (NEURONTIN) 300 mg capsuleIndications:Diabeti c polyneuropathy associated with type 2 diabetes mellitus (HCC-CMS) Take 300mg in the morning and 900mg in the evening Reorder 06/11/2021 08/25/2021 traMADol (ULTRAM) 50 mg tablet TAKE 1 TABLET BY MOUTH EVERY 6 HOURS NEEDED FOR PAIN, DAILY MAX: 200MG Reorder 07/10/2021 08/25/2021 documented as of this encounter Care Teams Motor Rebuilder Relationship Specialty Start Date End Date Carrington Calderon MD 1 [facility] 1 [place] [phone] PCP - General Internal Medicine - Primary Care 12/09/20 documented as of this encounter
--- OUTSIDE RECORDS SUMMARY | 2023-12-16 00:35 | XMS_ITS | Encounter Summary ---
Author Organization [facility] Address [address] [place] [address] Care Team Providers Care Yard Switcher Name Role Phone Carrington Calderon MD Primary Care Provi anders Reason for Visit * Reason Onset Date Comments Medications Refill 06/17/2021 Encounter Details Date Type Department Care Team (Late st Contact Info) Description 06/17/2021 Telephone [facility] Adult Primary Care [address] [phone] Carrington Calderon MD 1 [facility] Level 1 [place] [phone] Medications Refill Social History Tobacco Use Types [...] Da te traMADol (ULTRAM) 50 mg tablet Take 1 Tablet by mouth every 6 hours as needed for Pain. Daily Max: 200 mg 30 Tablet 06/17/2021 07/10/2021 documented in this encounter Miscellaneous Notes * Telephone Encounter - Karen Trujillo - 06/17/2021 1113 EST Patient notified via voicemail. * Telephone Encounter - Carrington Calderon MD - 06/17/2021 1046 EST Refilled. Thanks. * Telephone Encounter - Bettyleny Karen - 06/17/2021 0928 EST Patient was seen and asked about this at her appointment. Medication(s) Requested: Tramadol [place] Pharmacy: [place] Is patient out of medication? Yes Last Refill Date: 11/04/2020 Last Visit Date with Ordering Provider: 06/11/2021 Next Non-Acute Visit Date Scheduled with Care Team: Yes. Karen Trujillo 06/17/2021 9:28 documented in this encounter Plan of Treatment Upcoming Encounters Date Type Department Care Team (Late st Contact Info) Description 02/21/2024 9:45 EDT Office Visit [facility] Adult Primary Care - [address] [phone] Carrington Calderon MD [address] [phone] 02/27/2024 8:30 EDT Telemedicine [facility] Sleep Program - [address] [phone] Rn, Sleep 02/29/2024 10:30 EDT Appointment [facility] Radiology Nuclear Medicine and PET - [address] [phone] 02/29/2024 14:30 EDT Appointment [facility] Radiology Nuclear Medicine and PET - [address] [phone] 03/01/2024 8:00 EDT Appointment [facility] Radiology Nuclear Medicine and PET [address] [phone] 03/01/2024 9:30 EDT Appointment [facility] Radiology Nuclear Medicine and PET [address] 318161 documented as of this encounter Visit Diagnoses Not on filedocumented in this encounter Discontinued Medications Medication Sig Discontinue Reason Start Date End Da te traMADol (ULTRAM) 50 mg tablet Take 1 Tab by mouth every 6 hours as needed for Pain. Daily Max: 200 mg Reorder 11/04/2020 06/17/2021 documented as of this encounter Care Teams Yard Switcher Relationship Specialty Start Date End Date Carrington Calderon MD 1 [facility] Level 1 [place] [phone] PCP - General Internal Medicine - Primary Care 12/09/20 documented as of this encounter
--- OUTSIDE RECORDS SUMMARY | 2023-12-16 00:35 | XMS_ITS | Encounter Summary ---
Author Organization [facility] Address [address] [place] [address] Care Team Providers Care Assistant Oceanographer Name Role Phone Carrington Calderon MD Primary Care Provi anders Encounter Details Date Type Department Care Team (Latest Contact Info) Description 01/25/2021 Travel Social History Tobacco Use Types Packs/Day Years [...] 8:54 EST Sexual Orientation Not on file COVID-19 Exposure Response Date Recorded In the last month, have you been in contact with someone who was confirmed or suspected to have Coronavirus / COVID-19? No / Unsure 01/25/2021 21:05 EDT documented as of this encounter Functional Status [...] 02/21/2024 9:45 EDT Office Visit [facility] Adult Primary Care - [address] [phone] Carrington Calderon MD [address] [place] [phone] 02/27/2024 8:30 EDT Telemedicine [facility] Sleep Program - [address] [phone] Rn, Sleep 02/29/2024 10:30 EDT Appointment [facility] Radiology Nuclear Medicine and PET - [address] [phone] 02/29/2024 14:30 EDT Appointment [facility] Radiology Nuclear Medicine and PET - [address] [address] 03/01/2024 8:00 EDT Appointment [facility] Radiology Nuclear Medicine and PET [address] [address] 03/01/2024 9:30 EDT Appointment [facility] Radiology Nuclear Medicine and PET [address] 278901 documented as of this encounter Visit Diagnoses Not on filedocumented in this encounter Care Teams Assistant Oceanographer Relationship Specialty Start Date End Date Carrington Calderon MD 1 [facility] Level 1 [place] [phone] PCP - General Internal Medicine - Primary Care 12/09/20 documented as of this encounter
--- OUTSIDE RECORDS SUMMARY | 2023-12-16 00:35 | XMS_ITS | Encounter Summary ---
Author Organization [facility] Address [address] [place] [address] Care Team Providers Care Box Maker Wood Name Role Phone Carrington Calderon MD Primary Care Provi anders Abigail Díaz Unavailable Carmelo Hendrickson Unavailable Unavailable Reason for Visit * Reason Onset Date Comments Medications Refill 12/31/2020 Encounter Details Date Type Department Care Team (Late st Contact Info) Description 12/31/[address] [facility] Adult Primary Care - [address] [phone] Carrington Calderon MD 1 [facility] Level 1 [place] [phone] Medications Refill Social History Tobacco Use Types [...] have Coronavirus / COVID-19? No / Unsure 12/06/2020 21:16 EDT documented as of this encounter Functional [...] End Da te LORazepam (ATIVAN) 0.5 mg tablet Take 1 Tablet by mouth 3 times daily as needed for Anxiety. Daily Max: 1.5 mg 30 Tablet 12/31/2020 03/12/2021 documented in this encounter Miscellaneous Notes * Telephone Encounter - Rosalina Quezada - 12/31/2020 1038 EDT Medication(s) Requested: LORazepam (ATIVAN) 0.5 mg Preferred Pharmacy: [facility] Is patient out of medication? Yes Last Refill Date: 12.05.20 Last Visit Date with Ordering Provider: 11.04.20 Next Non-Acute Visit Date Scheduled with Care Team: Yes.02.18.21 Rosalina Quezada 12/31/2020 10:39 documented in this encounter Plan of Treatment Upcoming Encounters Date Type Department Care Team (Late st Contact Info) Description 02/21/2024 9:[address] [facility] Adult Primary Care - [address] [phone] Carrington Calderon MD [address] [place] [phone] 02/27/2024 8:[address] [facility] Sleep Program - [address] 1839[address] Rn, Sleep 02/29/2024 10:30 EDT Appointment [facility] Radiology Nuclear Medicine and [address] 627181 02/29/2024 14:30 EDT Appointment [facility] Radiology Nuclear Medicine and [address] [address] 03/01/2024 8:00 EDT Appointment [facility] Radiology Nuclear Medicine and PET [address] [address] 03/01/2024 9:30 EDT Appointment [facility] Radiology Nuclear Medicine and [address] 4077[address] documented as of this encounter Visit Diagnoses Not on filedocumented in this encounter Discontinued Medications Medication Sig Discontinue Reason Start Date End Da te LORazepam (ATIVAN) 0.5 mg tablet Take 1 Tablet by mouth 3 times daily as needed for up to 14 days for Anxiety. Daily Max: 1.5 mg Reorder 12/05/2020 12/31/2020 documented as of this encounter Care Teams Box Maker Wood Relationship Specialty Start Date End Date Carrington Calderon MD 1 [facility] 1 [place] [phone] PCP - General Internal Medicine - Primary Care 12/09/20 Abigail Díaz Ui Designer 04/21/23 Carmelo Hendrickson Coordinator 12/01/23 documented as of this encounter
--- OUTSIDE RECORDS SUMMARY | 2023-12-16 00:35 | XMS_ITS | Encounter Summary ---
Author Organization [facility] Address [address] [place] [address] Care Team Providers Care Instructor Physical Education Name Role Phone Carrington Calderon MD Primary Care Provi anders Reason for Visit * Reason Onset Date Comments No Show 02/18/2021 Encounter Details Date Type Department Care Team (Late st Contact Info) Description 02/18/2021 Telephone [facility] Adult Primary Care - [address] [phone] Carrington Calderon MD 1 [facility] Level 1 [place] [phone] No Show Social History Tobacco [...] * Telephone Encounter - Karen Trujillo - 02/19/2021 1047 EDT Patient has had 3 no shows in the past 12 months. No show letter 1 mailed to the patient. * Telephone Encounter - Dayana Cosme - 02/18/2021 1501 EDT Patient no showed apt today with Dr Calderon. GI Referral and meet New PCP documented in this encounter Plan of Treatment Upcoming Encounters Date Type Department Care Team (Late st Contact Info) Description 02/21/2024 9:45 EDT Office Visit [facility] Adult Primary Care - [address] [address] Carrington Calderon MD [address] [phone] 02/27/2024 8:30 EDT Telemedicine [facility] Sleep Program - [address] [phone] Rn, Sleep 02/29/2024 10:30 EDT Appointment [facility] Radiology Nuclear Medicine and PET [address] 635791 02/29/2024 14:30 EDT Appointment [facility] Radiology Nuclear Medicine and PET [address] 264371 03/01/2024 8:00 EDT Appointment [facility] Radiology Nuclear Medicine and PET [address] 876341 03/01/2024 9:30 EDT Appointment [facility] Radiology Nuclear Medicine and PET [address] 841861 documented as of this encounter Visit Diagnoses Not on filedocumented in this encounter Care Teams Instructor Physical Education Relationship Specialty Start Date End Date Carrington Calderon MD [address] [place] [phone] PCP - General Internal Medicine - Primary Care 12/09/20 documented as of this encounter
--- OUTSIDE RECORDS SUMMARY | 2023-12-16 00:35 | XMS_ITS | Encounter Summary ---
Author Organization [facility] Address [address] [place] [address] Care Team Providers Care Ventilating Equipment Installer Name Role Phone Carrington Calderon MD Primary Care Provi anders Reason for Visit * Reason Comments Nutrition Counseling * Consult (See Order Priority) - Order Cancelled Specialty Diagnoses / Procedures Referred By Contact Referred To Contact Nutrition / Gastroenterology and Hepatology Diagnoses Gastroparesis Scott Arzate MD 111 [facility] Level 5 [place] [phone] [facility] [address] [place] [address] Referral ID Status Reason Start Date Expiration Date Visits Requested Visits Authorized [id number] Order Cancelled Specialty Services Required 10/09/2021 1 1 Encounter Details Date Type Department Care Team (Late st Contact Info) Description 10/14/2021 11:00 EDT Nutrition [facility] Gastroenterology - [facility] [address] [place], [place] [phone] Savita Curtis [address] [place] [address] Gastroparesis; Type 2 diabetes mellitus with diabetic polyneuropathy, with long-term current use of insulin ([facility]) ([facility]) Social History Tobacco Use Types Packs/Day Years [...] as of this encounter Progress Notes * Savita Curtis RD - 10/14/2021 1100 EDT Nutrition Services Medical Nutrition Therapy Initial Nutrition Assessment SUBJECTIVE: Cristy Luo is 36 y.o. female here for medical nutrition therapy for diabetes (insulin requiring), and gastroparesis. Recently moved to [place], [place]. Reports frequent nausea, early satiety. Has been working on eating smaller, more frequent meals (grazing). Worried about long-term effects on blood glucose, weight, and overall health. Currently can't find her meter after her move, so has been unable to check/monitor blood glucose levels. TELEMEDICINE VIDEO VISIT Today's visit was provided through Zoom telemedicine video conferencing: I have reviewed the appropriateness of using video technology with the patient with regards to today's visit. The location of the patient : Home Patient location state: Visit Location State: [place] The location of the provider: Office Provider location state: Visit Location State: [place] The following people and their roles were present for today's visit: Appointment Provider: Savita Curtis RD Nutrition/diet history: Food allergies, intolerances, dislikes: other: some texture issues, does not like beans Appetite: poor Number of meals/day: 2 Number of snacks/day: 2 Servings dairy/day: 1-2 Type of dairy: yogurt and cheese Servings of fruits/day: 1 Servings of vegetables/day: 2 Family/other support system: spouse Menu planning/shopping:patient and spouse Who does the cooking:spouse Current Exercise: planned exercise occasionally- not as much as in the past, recent amputation of great toe. Walks with dogs, uses exercise bike Reasons for limited exercise: medical issues OBJECTIVE: Height and Weight 06/11/2021 10/09/2021 Height 162.6 cm 162.6 cm Weight 95.709 kg 93.26 kg BSA (Calculated - sq m) 2.08 m2 2.05 m2 BMI 36.294 kg/m2 35.347 kg/m2 Provides weight history of 300lb weight loss over 3 years in past achieved by diet and exercise. Lab Results Component Value Date HGBA1C 9.7 (H) 07/28/2020 Pertinent Medical History: Past Medical History: Diagnosis Date ??? Anxiety ??? Arthritis ??? Back pain chronic low back pain ??? Depression pt has a referral for therapy. ??? Diabetes (HCC) A1c 10.3 on 11/28/2019 - poorly controlled ??? Gastroparesis ??? Neuropathic diabetic ulcer of foot (HCC) 09/17/2021 ??? Obesity, unspecified ??? Osteomyelitis (HCC) of left great toe-s/p amputation ??? Peripheral neuropathy 08/12/20- Bilateral feet-Takes Gabapentin- pt just started this med. Current Outpatient Medications Medication ??? acetaminophen (TYLENOL) 325 mg tablet ??? blood glucose meter ??? blood glucose test strips ??? flash glucose sensor ([employer] FLORA 2 SENSOR) kit ??? gabapentin (NEURONTIN) 300 mg capsule ??? insulin aspart U-100 (NOVOLOG FLEXPEN) 100 unit/mL (3 mL) injectable pen ??? insulin glargine (LANTUS SOLOSTAR) 100 unit/mL (3 mL) injection pen ??? insulin pen needles 31G x 5/16 ??? lancets ??? lidocaine 5 % (LIDODERM) 5 % patch ??? LORazepam (ATIVAN) 0.5 mg tablet ??? omeprazole (PRILOSEC) 20 mg capsule ??? ondansetron (ZOFRAN-ODT) 4 mg disintegrating tablet ??? SITagliptin (JANUVIA) 50 mg tablet ??? TENS unit and electrodes combo pack ??? traMADol (ULTRAM) 50 mg tablet No current facility-administered medications for this visit. ASSESSMENT: Current weight status noted, some weight loss over past several months which may be related to decreased PO intake, nausea and gastroparesis symptoms. Has been working on eating smaller, frequent meals/snacks, meal size at times limited to a few bites. Reviewed diet strategies for gastroparesis, including softer/blended/pureed foods, strategies for including fruits/veggies, and small frequent meals. Provided handout via My Chart, and web resources for gastroparesis ([employer]) Stella has recently moved to [place], and is in the process of establishing a PCP and third steel pourer. Encouraged obtaining new meter for closer monitoring of blood glucose levels. Encouraged activity/movement on a daily basis, especially after eating. PLAN: Nutrition Recommendations and Goals: 1. Diet for gastroparesis- lower fat, modified textures to soft/blended, modified high fiber foods 2. Continue to follow diet guidelines for DM, re-establish care w/ third steel pourer, perhaps at Exercise/Activity Recommendations: exercise/activity as tolerated Educational materials provided: Diet for Gastroparesis Method: Handout and Verbal Taught to: Patient Barriers: None Outcomes: verbalized understanding I spent a total of 45 minutes with Cristy Luo today and 40 minutes of that time was spent incounseling and coordination of care as described in the progress note. Savita Curtis RD [phone] documented in this encounter Plan of Treatment Upcoming Encounters Date Type Department Care Team (Late st Contact Info) Description 02/21/2024 9:45 EDT Office Visit [facility] Adult Primary Care - [address] [phone] Carrington Calderon MD [address] [place] [phone] 02/27/2024 8:30 EDT Telemedicine [facility] Sleep Program - [address] [phone] Rn, Sleep 02/29/2024 10:30 EDT Appointment [facility] Radiology Nuclear Medicine and PET [address] [phone] 02/29/2024 14:30 EDT Appointment [facility] Radiology Nuclear Medicine and PET [address] 794001 03/01/2024 8:00 EDT Appointment [facility] Radiology Nuclear Medicine and [address] [phone] 03/01/2024 9:30 EDT Appointment [facility] Radiology Nuclear Medicine and PET [address] 918061 documented as of this encounter Visit Diagnoses Diagnosis Gastroparesis Type 2 diabetes mellitus with diabetic polyneuropathy, with long-term current use of insulin ([facility]) documented in this encounter Care Teams Ventilating Equipment Installer Relationship Specialty Start Date End Date Carrington Calderon MD 1 [facility] 1 [place] [phone] PCP - General Internal Medicine - Primary Care 12/09/20 documented as of this encounter
--- OUTSIDE RECORDS SUMMARY | 2023-12-16 00:35 | XMS_ITS | Encounter Summary ---
Author Organization [facility] Address [address] [place] [address] Care Team Providers Care Quality Control Lab Tech Name Role Phone Carrington Calderon MD Primary Care Provi anders Abigail Díaz Unavailable [phone] Carmelo Hendrickson Unavailable Unavailable Reason for Visit * Reason Onset Date Comments Appointment Related 04/06/2021 Appointment reminder Encounter Details Date Type Department Care Team (Late st Contact Info) Description 04/06/2021 Telephone [facility] General Surgery - [facility] [address] [place], [place] [phone] Britta Cox, SLACK COOPER 111 [facility], Level 5 [place] [address] Appointment Related (Appointment reminder ) Social History Tobacco Use Types Packs/Day Years [...] encounter Miscellaneous Notes * Telephone Encounter - Daniella Batista MA - 04/06/2021 1352 EDT Called pt. 2x and left message at 1:35pm w/ televideo appt. reminder documented in this encounter Plan of Treatment Upcoming Encounters Date Type Department Care Team (Late st Contact Info) Description 02/21/2024 9:45 EDT Office Visit [facility] Adult Primary Care - [address] [address] Carrintgon Calderon MD [address] [phone] 02/27/2024 8:30 EDT Telemedicine [facility] Sleep Program - [address] [address] Rn, Sleep 02/29/2024 10:30 EDT Appointment [facility] Radiology Nuclear Medicine and PET [address] [address] 02/29/2024 14:30 EDT Appointment [facility] Radiology Nuclear Medicine and PET [address] [phone] 03/01/2024 8:00 EDT Appointment [facility] Radiology Nuclear Medicine and PET [address] 818681 03/01/2024 9:30 EDT Appointment [facility] Radiology Nuclear Medicine and PET [address] [phone] documented as of this encounter Visit Diagnoses Not on filedocumented in this encounter Care Teams Quality Control Lab Tech Relationship Specialty Start Date End Date Carrington Calderon MD [address] [phone] PCP - General Internal Medicine - Primary Care 12/09/20 Abigail Díaz Pc Analyst 04/21/23 Carmelo Hendrickson Coordinator 12/01/23 documented as of this encounter
--- OUTSIDE RECORDS SUMMARY | 2023-12-16 00:35 | XMS_ITS | Encounter Summary ---
Author Organization [facility] Address [address] [place] [address] Care Team Providers Care Biometrician Name Role Phone Carrington Calderon MD [facility] Reason for Referral * Consult (Routine) - Closed Specialty Diagnoses / Procedures Referred By Contact Referred To Contact Gastroenterology and Hepatology Diagnoses Nausea Gastroparesis Yue Hamilton MD [address] [place] [phone] [facility] [address] [place] [address] Referral ID Status Reason Start Date Expiration Date V isits Requested Visits Authorized [id number] Closed Specialty Services Required 12/09/2020 1 1 Question Answer Reason for Request: gastroparesis, nausea per Tonja DAWSON To the best of your knowledge, does this patient have known or suspected inflammatory bowel disease (Crohn's disease, ulerative colitis, indeterminate colitis)? No To the best of your knowledge, does this patient have any of the following symptoms or other clinical findings? (check all that apply) None present Reason for Visit * Reason Onset Date Comments Referral Request 12/09/2020 GI Encounter Details Date Type Department Care Team (Late Contact Info) Description 12/09/2020 Telephone [facility] Adult Primary Care [place] [phone] Tonja Alejandro PA-C [address] [place] [phone] Referral Request (GI) Social History Tobacco Use Types Packs/Day Years [...] * Telephone Encounter - Rosalina Quezada - 12/09/2020 1521 EDT Patient made aware * Telephone Encounter - Yue Hamilton MD - 12/09/2020 1125 EDT GI referral has been placed -- as best I could tell from chart review looks like the indication is persistent nausea/gastroparesis? * Telephone Encounter - Dayana Cosme - 12/09/2020 1004 EDT Reason for Call: Referral Request (GI) Summary/Symptoms: Patient called requesting a Referral to GI. Patient stated she was seen at again over the weekend.Patient would like to see a Specialist. Patient also requested decision of reassignment of PCP due to her on going current issues. Onset and Duration? On going Appointment Offered? No Dayana Cosme 12/09/2020 10:08 documented in this encounter Plan of Treatment Upcoming Encounters Date Type Department Care Team (Late st Contact Info) Description 02/21/2024 9:45 EDT Office Visit [facility] Adult Primary Care - [address] [address] Carrington Calderon MD [address] [place] [address] [phone] 02/27/2024 8:30 EDT Telemedicine [facility] Sleep Program - [address] [address] Rn, Sleep 02/29/2024 10:30 EDT Appointment [facility] Radiology Nuclear Medicine and PET - [address] [address] 02/29/2024 14:30 EDT Appointment [facility] Radiology Nuclear Medicine and PET [address] [address] 03/01/2024 8:00 EDT Appointment [facility] Radiology Nuclear Medicine and PET [address] [phone] 03/01/2024 9:30 EDT Appointment [facility] Radiology Nuclear Medicine and PET [address] [address] Scheduled Referrals Name Type Priority Associated Diagnoses Order Schedule AMB CONS/FOLLOW UP GASTROENTEROLOGY Outpatient Referral Routine Nausea Gastroparesis Expected: 01/09/2021 (Approximate) documented as of this encounter Visit Diagnoses Diagnosis Nausea- Primary Nausea alone Gastroparesis documented in this encounter Care Teams Biometrician Relationship Specialty Start Date End Date Carrington Calderon MD [address] [place] [phone] PCP - General Internal Medicine - Primary Care 12/09/20 documented as of this encounter
--- OUTSIDE RECORDS SUMMARY | 2023-12-16 00:35 | XMS_ITS | Encounter Summary ---
Author Organization [facility] Address [address] [place] [address] Care Team Providers Care Long Term Name Role Phone Carrington Calderon MD Primary Care [facility] Reason for Visit * Reason Comments Other Encounter Details Date Type Department Care Team (Late st Contact Info) Description 09/13/2021 [facility] Adult Primary Care [facility] [address] [place], [place] [id number] Carrington Calderon MD 1 [facility] Level [address] [place] [phone] Other Social History Tobacco Use [...] DAILY MAX 4 TABLETS (200MG) 30 Tablet 09/20/2021 10/30/2021 documented in this encounter Miscellaneous Notes * Telephone Encounter - Eryn Pack RN - 09/14/2021 0971 EDT traMADol (ULTRAM) 50 mg tablet [[id number]] ?? Order Details Dose, Route, Frequency: As Directed Dispense Quantity: 30 Tablet Refills: 0 ?? Sig: TAKE 1 TABLET BY MOUTH EVERY 6 HOURS NEEDED FOR PAIN, DAILY MAX: 200MG ?? Start Date: 08/25/21 End Date: -- Written Date: 08/25/21 Next visit- 09/28/21 Last visit- 06/11/21 documented in this encounter Plan of Treatment Upcoming Encounters Date Type Department Care Team (Late st Contact Info) Description 02/21/2024 9:45 EDT Office Visit [facility] Adult Primary Care - [address] [phone] Carrington Calderon MD [address] [place] [phone] 02/27/2024 8:30 EDT Telemedicine [facility] Sleep Program - [address] [phone] Rn, Sleep 02/29/2024 10:30 EDT Appointment [facility] Radiology Nuclear Medicine and PET [address] [phone] 02/29/2024 14:30 EDT Appointment [facility] Radiology Nuclear Medicine and PET [address] [phone] 03/01/2024 8:00 EDT Appointment [facility] Radiology Nuclear Medicine and PET [address] [id number] 03/01/2024 9:30 EDT Appointment [facility] Radiology Nuclear Medicine and PET [address] [phone] documented as of this encounter Visit Diagnoses Not on filedocumented in this encounter Discontinued Medications Medication Sig Discontinue Reason Start Date End Da te traMADol (ULTRAM) 50 mg tablet TAKE 1 TABLET BY MOUTH EVERY 6 HOURS NEEDED FOR PAIN, DAILY MAX: 200MG 08/25/2021 09/20/2021 documented as of this encounter Care Teams Long Term Relationship Specialty Start Date End Date Carrington Calderon MD [address] [place] [address] [phone] PCP - General Internal Medicine - Primary Care 12/09/20 documented as of this encounter
--- OUTSIDE RECORDS SUMMARY | 2023-12-16 00:35 | XMS_ITS | Encounter Summary ---
Author Organization [facility] Address [address] [place] [address] Care Team Providers Care Grinder Set Up Operator Gear Tool Name Role Phone Carrington Calderon MD Primary Care [facility] Encounter Details Date Type Department Care Team (Late st Contact Info) Description 04/22/2021 Orders Only [facility] Adult Primary Care - [place] [address] [place], [place] [phone] Carrington Calderon MD 1 [facility] Level [address] [place] [phone] Type 2 diabetes mellitus with hyperosmolarity without coma, with long-term current use of insulin (HCC-CMS) (HCC) (Primary Dx); Screening for hepatitis C declined; Encounter for hepatitis C screening test for low risk patient Social History Tobacco Use Types Packs/Day Years [...] Progress Notes * Carrington Calderon MD - 04/22/2021 1553 EST I think we can skip lipids. If you look at the HM, she's due for an A1C, albumin/creatinine ratio and a hep C screen. Can you order those? Thanks. * Carrington Calderon MD - 04/22/2021 1555 EST All set. Thanks. documented in this encounter Plan of Treatment Upcoming Encounters Date Type Department Care Team (Late st Contact Info) Description 02/21/2024 9:45 EDT Office Visit [facility] Adult Primary Care [address] [phone] Carrington Calderon MD [address] [phone] 02/27/2024 8:30 EDT Telemedicine [facility] Sleep Program - [address] [phone] Rn, Sleep 02/29/2024 10:30 EDT Appointment [facility] Radiology Nuclear Medicine and PET [address] [phone] 02/29/2024 14:30 EDT Appointment [facility] Radiology Nuclear Medicine and PET [address] [phone] 03/01/2024 8:00 EDT Appointment [facility] Radiology Nuclear Medicine and PET [address] [phone] 03/01/2024 9:30 EDT Appointment [facility] Radiology Nuclear Medicine and PET [address] [phone] documented as of this encounter Visit Diagnoses Diagnosis Type 2 diabetes mellitus with hyperosmolarity without coma, with long-term current use of insulin ([facility])- Primary Screening for hepatitis C declined Encounter for hepatitis C screening test for low risk patient documented in this encounter Care Teams Grinder Set Up Operator Gear Tool Relationship Specialty Start Date End Date Carrington Calderon MD [address] [place] [address] [phone] PCP - General Internal Medicine - Primary Care 12/09/20 documented as of this encounter
--- OUTSIDE RECORDS SUMMARY | 2023-12-16 00:35 | XMS_ITS | Encounter Summary ---
Author Organization [facility] Address [address] [place] [address] Care Team Providers Care Mental Health Orderly Name Role Phone Carrington Calderon MD Primary Care Provi anders Reason for Visit * Reason Comments Emesis Pt arrives via EMS c /o n/v x 2 days. Bile only noted by EMS. Abnormal EKG reported by EMS. BS = 285. Pt rec'd 1LNS and 4mg IV zofran enroute. Encounter Details Date Type Department Care Team (Late st Contact Info) Description 01/25/2021 20:55 EDT - 01/26/2021 1:16 EDT Emergency [facility] Emergency Department - [address] [id number] Mark Thibodeaux PA-C [address] [place] [phone] Siobhan Hare PA-C [address] [place] [phone] Non-intractable vomiting with nausea, unspecified vomiting type (Primary Dx) Discharge Disposition: Home or Self [...] 21:05 EDT documented as of this encounter Last Filed Vital Signs Vital Sign Reading Time Taken Comments Blood Pressure 119/77 01/26/2021 0115 EDT Pulse 78 01/26/2021 0115 EDT Temperature 36.4 ??C (97.5 ??F) 01/26/2021 0115 EDT Respiratory Rate 18 01/26/2021 0115 EDT Oxygen Saturation 100% 01/25/20212103 EDT Inhaled Oxygen Concentration - - Weight 95.3 kg (210 lb) 01/25/20212103 EDT Height - - Body Mass Index 36.05 11/04/2020 1406 EDT documented in this encounter [...] this encounter Discharge Instructions * Discharge Instructions* Siobhan Hare PA-C - 01/26/2021 1:10 EDT Please continue your daily medications as directed Continue to rest and drink plenty of fluids If you are unable to tolerate your daily medications, have further uncontrolled vomiting, other worsening symptoms then please return to the ED for further evaluation * Attachments The following attachments cannot be sent through Care Everywhere. * Nausea and Vomiting ([place] Verdean) documented in this encounter Medications at Time of Discharge Medication Sig Dispensed Refills Start Date End Date acetaminophen (TYLENOL) 325 mg tablet Take 2 Tabs by mouth every 4 hours as needed for Pain. 08/20/2020 blood glucose meter One Touch Verio Flex meter. 1 Each 10/04/2019 12/21/2021 blood glucose test strips Brand: FreeStyle Precision Cristo, use as directed if Freestyle Vignesh censor isnt working 100 Each 3 10/06/2020 06/27/2023 blood glucose test strips One Touch Verio IQ or other brand compatible with meter and covered by patient's insurance. Testing QID. 100 Each 5 08/11/2020 06/27/2023 capsaicin (ZOSTRIX) 0.025 % topical cream Apply up to 2 times daily over abdomen, shoulders and arms as needed for abdominal pain and nausea 1 Tube 1 10/01/2020 03/27/2021 flash glucose scanning reader (FREESTYLE VIGNESH 2 READER) misc 1 Device by [facility] (non-drug; combo route) route continuous. 1 Each 10/01/2020 05/21/2022 flash glucose sensor (FREESTYLE VIGNESH 2 SENSOR) kit 1 Device by [facility] (non-drug; combo route) route continuous. 6 Kit 3 10/01/2020 03/15/2022 gabapentin (NEURONTIN) 100 mg capsule Take 1 capsule by mouth 2 times daily before breakfast and lunch. 180 capsule 1 12/04/2020 03/27/2021 gabapentin (NEURONTIN) 300 mg capsule Take 1 capsule by mouth daily. Take 1 cap in the evening. (In addition to 100mg gabapentin twice daily) 90 capsule 2 12/04/2020 03/27/2021 insulin aspart U-100 (NOVOLOG FLEXPEN) 100 unit/mL (3 mL) injectable penIndications:type 2 diabetes mellitus,as needed with meals. Inject 9 Units into the skin 3 times daily with meals. 30 mL 2 03/21/2020 12/21/2021 insulin glargine (LANTUS SOLOSTAR) 100 unit/mL (3 mL) injection pen Inject 30 Units into the skin at bedtime for 90 days. 27 mL 3 12/04/2019 12/21/2021 insulin pen needles 31G x 16Indications:Type 2 diabetes mellitus with hyperglycemia, with long-term current use of insulin ([facility]) Use 1 pen needle as directed 4 times daily. 400 Each 2 09/02/2020 03/16/2023 lancets Brand: Freestyle, use as directed if Freestyle Vignesh censor isnt working 100 Each 3 10/06/2020 03/16/2023 lancets One Touch Delica or other brand compatible with lancing device and covered by patient's insurance. 100 Each 5 10/01/2020 03/16/2023 lidocaine 5 % (LIDODERM) 5 % patch Place 1 Patch onto the skin daily. Patch(es) may remain in place for up to 12 hours in any 24-hour period. 10 Patch 10/22/2020 03/27/2021 LORazepam (ATIVAN) 0.5 mg tablet Take 1 Tablet by mouth 3 times daily as needed for Anxiety. Daily Max: 1.5 mg 30 Tablet 12/31/2020 03/12/2021 metoclopramide HCl (REGLAN) 10 mg tablet Take 1 Tablet by mouth 3 times daily before meals for 90 days. 270 Tablet 3 11/20/2020 03/02/2022 mirtazapine (REMERON) 15 mg tablet Take 1 Tab by mouth at bedtime. 30 Tab 2 10/10/2020 03/27/2021 Miscellaneous Medication - See Admin Instructions Dispense one lancing device, generic brand as covered by insurance. 1 Each 10/07/2020 01/29/2022 nicotine (NICODERM CQ) 7 mg/24 hr patch Apply one patch only daily on skin without hair. Apply to a different skin site at the same time each day. 14 Patch 06/13/2020 03/27/2021 SITagliptin (JANUVIA) 50 mg tablet Take 1 Tab by mouth daily. 90 Tab 3 09/02/2020 03/15/2022 TENS unit and electrodes combo pack 1 Each by misc (non-drug; combo route) route daily. 1 Each 08/01/2020 05/21/2022 traMADol (ULTRAM) 50 mg tablet Take 1 Tab by mouth every 6 hours as needed for Pain. Daily Max: 200 mg 30 Tab 11/04/2020 06/17/2021 documented as of this encounter Discharge Disposition Disposition Code Departure Means Destination Home or Self Fpc documented in this encounter ED Notes * Mignon Young RN - 01/26/2021 0116 EDT Pt and spouse verbalized understanding of d/c paperwork and deny questions at this time. Pt and spouse ambulated out of ED * Mignon Young RN - 01/26/2021 0110 EDT MIGNON Valenzuela RN, notified EUNICE Sands of 4+ Ketones in urine on 01/26/2021 at 0110. * Siobhan Hare PA-C - 01/26/2021 0030 EDT This documentation is recorded by Christopher Paulino acting as Scribe under the direction and presence of Siobhan Hare PA-C. Siobhan Hare PA-C I personally performed the services recorded by the scribe in my presence. I confirm the scribe's documentation has been reviewed by me to accurately and completely record my work, treatment, procedures, and medical decision making. Dr. Kemar Hurley was available for supervision. Stella Luo is a 35 y.o Female who presents with nausea and vomiting. The plan for the patient is to reevaluate with a PO challenge after administration of IV Zofran. 0109: The patient passed her PO challenge and states that she would like to be discharged. At this time, the patient was stable for discharge home due to her stable labs and successful PO challange. Prior to discharge usual and customary precautions were reviewed with the patient and/or family including follow-up instructions and reasons to return to the Emergency Department if conditionworsens, does not improve as expected, or other new concerns arise. Final diagnoses: Non-intractable vomiting with nausea, unspecified vomiting type * Mark Thibodeaux PA-C - 01/25/2021 2016 EDT DOS: 01/25/2021 Chief Complaint Patient presents with ??? Emesis Pt arrives via EMS c/o n/v x 2 days. Bile only noted by EMS. Abnormal EKG reported by EMS. BS = 285. Pt rec'd 1LNS and 4mg IV zofran enroute. HPI The patient is a 35 y.o. female who presents today with Emesis (Pt arrives via EMS c/o n/v x 2 days. Bile only noted by EMS. Abnormal EKG reported by EMS. BS = 285. Pt rec'd 1LNS and 4mg IV zofran enroute. ) 35-year-old diabetic female presents with complaints of nausea and vomiting. She has had symptoms for the past 2 days. She denies diarrhea. Notes some abdominal pain, attributed to vomiting. Denies any fever, chills, shortness of breath or cough. Denies urinary symptoms. She has a history of similar with numerous presentations for the same. Was recently treated at an outside hospital for the same. Denies any suspicious food intake. Review of Systems Review of Systems Constitutional: Negative for chills and fever. Respiratory: Negative for cough and shortness of breath. Cardiovascular: Negative for chest pain. Gastrointestinal: Positive for abdominal pain, nausea and vomiting. Negative for diarrhea. Genitourinary: Negative for dysuria. All other systems reviewed and are negative. The patient's past medical, family and social history was reviewed and updated as needed. Allergies Allergen Reactions ??? Citalopram Other (See Comments) suicidal ideation, approx 2012 ??? Other - See Comments Swelling of throat pomergrante ??? Advil [Ibuprofen] Hives Vital Signs Vitals Reassessment?: Yes Temp: 36.4 ??C (97.5 ??F) Temp src: Oral Pulse: 78 Resp: 18 SpO2: 100 % BP: 119/77 BP Device: BP Machine BP Patient Position: Lying left side BP Cuff Location: Right arm O2 Device: None (Room air) Physical Exam Vitals and nursing note reviewed. Constitutional: General: She is not in acute distress. Appearance: She is well-developed. She is ill-appearing. She is not toxic- appearing or diaphoretic. HENT: Head: Atraumatic. Mouth/Throat: Mouth: Mucous membranes are dry. Cardiovascular: Rate and Rhythm: Normal rate. Pulmonary: Effort: Pulmonary effort is normal. No respiratory distress. Abdominal: Palpations: Abdomen is soft. Tenderness: There is no abdominal tenderness. There is no right CVA tenderness, left CVA tenderness, guarding or rebound. Musculoskeletal: Cervical back: Normal range of motion. Skin: General: Skin is warm and dry. Neurological: Mental Status: She is alert and oriented to person, place, and time. Motor: Motor function is intact. Coordination: Coordination is intact. RESULTS EKG orders: EKG 12-LEAD Radiology orders: None Procedures ED COURSE A medical screening exam was performed. Patient presents with complaints of nausea and vomiting. Has numerous presentations for similar with recurrent episodes, also treated at outside facilities. She is nontoxic-appearing. No abdominal tenderness. Labs obtained, discussed with the ED attending. Mild elevation of beta hydroxybutyrate. Does not appear to be in DKA. Was given IV fluid. Care transferred to plan to recheck though hopefully she can go home. Final diagnoses: Non-intractable vomiting with nausea, unspecified vomiting type DISPOSITION: Discharged The patient's pain was managed to an adequate level weighing risk vs. benefit of further medications. Upon departure from the Emergency Department, the patient's pain was 0 on a zero to ten scale. Any further pain treatment will be at the discretion of the provider following up with the patient based on their clinical assessment. Condition at departure from the Emergency Department: Stable PCP: Carrington Barbosa was available for supervision. 01/28/2021 18:24 No flowsheet data found. documented in this encounter Plan of Treatment Upcoming Encounters Date Type Department Care Team (Late st Contact Info) Description 02/21/2024 9:45 EDT Office Visit [facility] Adult Primary Care - [address] [phone] Carrington Calderon MD [address] [phone] 02/27/2024 8:30 EDT Telemedicine [facility] Sleep Program - [address] [phone] Rn, Sleep 02/29/2024 10:30 EDT Appointment [facility] Radiology Nuclear Medicine and PET - [address] [phone] 02/29/2024 14:30 EDT Appointment [facility] Radiology Nuclear Medicine and PET [address] [phone] 03/01/2024 8:00 EDT Appointment [facility] Radiology Nuclear Medicine and PET [address] [phone] 03/01/2024 9:30 EDT Appointment [facility] Radiology Nuclear Medicine and PET [address] [id number] documented as of this encounter Procedures Procedure Name Priority Date/Time Associated Diagnosis Comments ECG REPORT - SCANNED 02/17/2021 18:18 EDT POCT URINE DIPSTICK, CLINITEK STAT 01/26/2021 0:21 EDT POCT TEST, CLINITEK STAT 01/26/2021 0:16 EDT POCT CSN BARCODE URINE PREG TEST STAT 01/26/2021 0:01 EDT POCT TEST, CLINITEK ORDER STAT 01/26/2021 0:01 EDT POCT CSN BARCODE URINE DIPSTICK STAT 01/26/2021 0:01 EDT POCT URINE CLINITEK (DIPSTICK) - DOES NOT REFLEX STAT 01/26/2021 0:01 EDT BETA HYDROXYBUTYRATE STAT 01/25/2021 21:55 EDT BASIC METABOLIC PANEL (BMP) STAT 01/25/2021 21:55 EDT EKG 12-LEAD STAT 01/25/2021 21:12 EDT documented in this encounter Results * ECG REPORT - SCANNED (02/17/2021 18:18 EDT) 02/17/2021 18:1 8 EDT Scan 2 Re Etcher PROCEDURE/MINOR BRAULIO GICAL ORDERABLES * (ABNORMAL) POCT URINE DIPSTICK, CLINITEK (01/26/2021 0:21 EDT) Color, UA Yellow Yellow 01/26/2021 0:23 EDT [facility] Clarity, UA Clear Clear 01/26/2021 0:23 EDT [facility] Glucose, UA 2+(A) Negative mg/dL 01/26/2021 0:23 EDT [facility] Bilirubin, UA Negative Negative 01/26/2021 0:23 T [facility] Ketones, UA 4+(AA) Negative mg/dL 01/26/2021 0:23 T [facility] Specific [place], Urine >=1.030 1.001 - 1.035 01/26/2021 0:23 EDT [facility] Blood, UA Negative Negative 01/26/2021 0:23 T [facility] pH, UA 6.0 <=8 01/26/2021 0:23 T [facility] Protein, UA Negative Negative mg/dL 01/26/2021 0:23 [facility] Urobilinogen, UA 0.2 0.2 - 1.0 EU/dL 01/26/2021 0:23 [facility] Nitrite, UA Negative Negative 01/26/2021 0:23 [facility] Leuk Esterase Negative Negative 01/26/2021 0:23 [facility] HN LAB COMMENT (CLINITEK, UR) Test performed at Emergency Department 01/26/2021 0:23 T [facility] Urine URINE SPECIMEN COLLECTION, CLEAN CATCH / Unknown 01/26/2021 0:21 EDT 01/26/2021 0:23 EDT Mark Thibodeaux PA-C POINT OF CARE TEST O RDERABLES [facility] [address] [place] [address] * POCT TEST, CLINITEK (01/26/2021 0:16 EDT) UPT Result Negative Negative 01/26/2021 0:23 T [facility] HN LAB COMMENT (CLINITEK, UPT) Test performed at Emergency Department 01/26/2021 0:23 EDT [facility] Comment:False negative resul ts may occur in women who are beyond 5-8 weeks gestation. Diagnosis of should be based on a correlation of test results with typical clinical signs and symptoms. Urine URINE SPECIMEN COLLECTION, CLEAN CATCH / Unknown 01/26/2021 0:16 EDT 01/26/2021 0:23 EDT Mark Thibodeaux PA-C POINT OF CARE TEST O RDERABLES Performing Organization Address City/[facility]/ZIP Co de Phone Number [facility] [address] [place] [address] * POCT CSN BARCODE URINE PREG TEST (01/26/2021 0:01 EDT) Urine URINE SPECIMEN COLLECTION, CLEAN CATCH / Unknown Urine Collect / Unknown 01/26/2021 0:01 EDT 01/26/2021 0:01 EDT Mark Thibodeaux PA-C LAB INFO SERVICE AND SUPPORT & PHONE RESULT Performing Organization Address [facility] Co de Phone Number [facility] [address] [place] [phone] * POCT CSN BARCODE URINE DIPSTICK (01/26/2021 0:01 EDT) Urine URINE SPECIMEN COLLECTION, CLEAN CATCH / Unknown Urine Collect / Unknown 01/26/2021 0:01 EDT 01/26/2021 0:01 EDT Mark Thibodeaux PA-C LAB INFO SERVICE AND SUPPORT & PHONE RESULT Performing Organization Address [facility] Co de Phone Number [facility] [address] [place] [phone] * (ABNORMAL) BETA HYDROXYBUTYRATE (01/25/2021 21:55 EDT) Beta Hydroxybutyrate 2.2(H) <0.4 mmol/L 01/25/2021 22:23 EDT [facility] Blood VENOUS BLOOD / Unknown Venipuncture / Unknown 01/25/2021 21:55 EDT 01/25/2021 21:57 EDT Mark Thibodeaux PA-C CHEMISTRY & BLOOD GA S ORDERABLES Performing Organization Address [facility]/ZIP Co de Phone Number [facility] [address] [place] [address] * (ABNORMAL) BASIC METABOLIC PANEL (BMP) (01/25/2021 21:55 EDT) Sodium 139 136 - 145 mmol/L 01/25/2021 22:18 [facility] Potassium 3.7 3.5 - 5.0 mEq/L 01/25/2021 22:18 [facility] Chloride 103 96 - 110 mEq/L 01/25/2021 22:18 [facility] CO2 Total 22 22 - 32 mEq/L 01/25/2021 22:18 [facility] Glucose 246(H) 70 - 100 mg/dL 01/25/2021 22:18 [facility] Calcium 8.8 8.5 - 10.5 mg/dL 01/25/2021 22:18 [facility] Calculated Calcium 8.9 8.5 - 10.5 mg/dL 01/25/2021 22:18 [facility] BUN 11 10 - 26 mg/dL 01/25/2021 22:18 [facility] Creatinine 0.48(L) 0.52 - 1.04 mg/dL 01/25/2021 22:18 [facility] eGFR 127 >60 mL/min/1.7 3m2 01/25/2021 22:18 [facility] Comment:eGFR calculated gil curtis CKD-EPI equation for non- Americans. Multiply eGFR by 1.16 for patients. Blood VENOUS BLOOD / Unknown Venipuncture / Unknown 01/25/2021 21:55 EDT 01/25/2021 21:57 EDT Mark Thibodeaux PA-C CHEMISTRY & BLOOD GA S ORDERABLES [facility] [address] [place] [address] * EKG 12-LEAD (01/25/2021 21:12 EDT) 01/25/2021 21:1 2 EDT Narrative [facility] - 02/17/2021 18:13 EDT ?[facility] Emergency ? Test Date: ?2021-01-25 Pat Name: ? CRISTY LUO ?Department: ?? ED ? Room: ? WB05 Gender: ? Female ? 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 : ?1985 ? Requested By: ANA ALAS M Order Number: [id number] ? Reading MD: ?? AGA ZEGLIN MD ? Measurements Intervals ?[place] ? Rate: ? 66 ? P: ?74 CA: ? 136 ?QRS: ?5 QRSD: ? 98 ? T: ?-4 QT: ? 410 ? QTc: ?430 ? Interpretive Statements SINUS RHYTHM WITH MARKED SINUS ARRHYTHMIA Automated Interpretation. ??Provider Interpretation to follow. Compared to ECG 12/06/2020 21:43:43 T-wave abnormality no longer present I reviewed the tracing and have either agreed or edited the findings in this report. Electronically Signed On 02-17-2021 18:13:34 EDT by AGA FAIRCHILD MD. Procedure Note Aga Fairchild MD - 02/17/2021 [facility] Emergency Test Date: 2021-01-25 Pat Name: CRISTY LUO Department: ED Room: [facility] Gender: Female City Superintendent: : 1985 Requested By: ANA Forman Order Number: [id number] Reading MD: AGA FAIRCHILD MD Measurements Intervals [place] Rate: 66 P: 74 CA: 136 QRS: 5 QRSD: 98 T: -4 QT: 410 QTc: 430 Interpretive Statements SINUS RHYTHM WITH MARKED SINUS ARRHYTHMIA Automated Interpretation. Provider Interpretation to follow. Compared to ECG 12/06/2020 21:43:43 T-wave abnormality no longer present I reviewed the tracing and have either agreed or edited the findings inthis report. Electronically Signed On 02-17-2021 18:13:34 EDT by DAVID MARTÍNEZ. Mark Thibodeaux PA-C CARDIAC ECG ORDERABL ES [facility] EKG documented in this encounter Visit Diagnoses Diagnosis Non-intractable vomiting with nausea, unspecified vomiting type- Primary documented in this encounter Administered Medications Inactive Administered Medications - up to 3 most recent administrations Medication Order MAR Action Action Date Dose Rate Site diphenhydrAMINE (BENADRYL) injection 12.5 mg 12.5 mg, intravenous, NOW X1, 1 dose, On 01/25/21 at 2145, STAT Given 01/25/2021 22:00 EDT 12.5 mg lactated ringers BOLUS 1,000 mL 1,000 mL, intravenous, NOW X1, 1 dose, On 01/25/21 at 2145, STAT New Bag 01/25/2021 22:00 EDT 1,000 mL metoclopramide (REGLAN) injection 10 mg 10 mg, intravenous, NOW X1, 1 dose, On 01/25/21 at 2145, STAT Given 01/25/2021 22:00 EDT 10 mg ondansetron (PF) (ZOFRAN) injection 4 mg 4 mg, intravenous, NOW X1, 1 dose, On 01/25/21 at 2315, STAT Given 01/25/2021 23:40 EDT 4 mg documented in this encounter Active and Recently Administered Medications Times are shown in EDT. Scheduled Medication Order 01/24/2021 01/25/2021 01/26/2021 capsaicin (CAPZASIN-HP) 0.1 % cream topical, NOW X1, 1 dose, On 01/25/21 at 2315 2340 (Not Given - Provider: Nanda Gibson, MARCELO - Reason: Patient/family refused) diphenhydrAMINE (BENADRYL) injection 12.5 mg (COMPLETED) 12.5 mg, intravenous, NOW X1, 1 dose, On 01/25/21 at 2145, STAT 2200 (Given - Provider: Mignon Young, MARCELO) lactated ringers BOLUS 1,000 mL (COMPLETED) 1,000 mL, intravenous, NOW X1, 1 dose, On 01/25/21 at 2145, STAT 2200 (New Bag - Provider: Mignon Young, RN)2339 (Completed - Provider: Nanda Gibson, MARCELO) metoclopramide (REGLAN) injection 10 mg (COMPLETED) 10 mg, intravenous, NOW X1, 1 dose, On 01/25/21 at 2145, STAT 2200 (Given - Provider: Mignon Young, MARCELO) ondansetron (PF) (ZOFRAN) injection 4 mg (COMPLETED) 4 mg, intravenous, NOW X1, 1 dose, On 01/25/21 at 2315, STAT 2340 (Given - Provider: Wan Gibson, MARCELO) documented in this encounter Orders Medications Ordered That Stan ht Not Have Been Administered Count Last Ordered Date First Ordered Date capsaicin (CAPZASIN-HP) 0.1 % cream 1 01/25 documented in this encounter Care Teams Mental Health Orderly Relationship Specialty Start Date End Date Carrington Calderon MD [address] [facility] Level [address] [place] [phone] PCP - General Internal Medicine - Primary Care 12/09/20 documented as of this encounter
--- OUTSIDE RECORDS SUMMARY | 2023-12-16 00:35 | XMS_ITS | Encounter Summary ---
Author Organization [facility] Address [address] [place] [address] Care Team Providers Care Mold Dresser Name Role Phone Carrington Calderon MD Primary Care Provi anders Reason for Visit * (Routine/Next Available) - Receiving Office to Obtain Authorization Specialty Diagnoses / Procedures Referred By Kit goode Referred To Contact Procedures XR OUTSIDE IMAGES MSK Unknown, Provider, Referral ID Status Reason Start Date Expiration Date Visits Requested Visits Authorized [id number] Receiving Office to Obtain Authorization 09/12/2021 1 1 Encounter Details Date Type Department Care Team (Latest Contact Info) Description 09/12/2021 16:35 EDT - 09/12/2021 23:59 EDT Hospital Encounter [facility] Secondary Reads [place] Discharge Disposition: Home or [...] VIGNESH 2 READER) misc 1 Device by [facility] (non-drug; combo route) route continuous. 1 Each 10/01/2020 05/21/2022 flash glucose sensor (FREESTYLE VIGNESH 2 SENSOR) kit 1 Device by [facility] (non-drug; combo route) route continuous. 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 270 Tablet 3 11/20/2020 03/02/2022 Miscellaneous Medication - See Admin Instructions Dispense one lancing device, generic brand as covered by insurance. 1 Each 10/07/2020 01/29/2022 omeprazole (PRILOSEC) 20 mg capsule Take 1 capsule by mouth daily. 90 capsule 3 01/26/2021 03/02/2022 ondansetron (ZOFRAN-ODT) 4 mg disintegrating tabletIndications:Gastr oparesis Take 1 Tablet by mouth every 8 hours as needed for Nausea. 30 Tablet 11 06/11/2021 12/21/2021 SITagliptin (JANUVIA) 50 mg tablet Take 1 Tab by mouth daily. 90 Tab 3 09/02/2020 03/15/2022 TENS unit and electrodes combo pack 1 Each by misc (non-drug; combo route) route daily. 1 Each 08/01/2020 05/21/2022 traMADol (ULTRAM) 50 mg tablet TAKE 1 TABLET BY MOUTH EVERY 6 HOURS NEEDED FOR PAIN, DAILY MAX: 200MG 30 Tablet 08/25/2021 09/20/2021 documented as of this encounter Discharge Disposition Disposition Code Departure Means Destination Home or Self Care documented in this encounter Plan of Treatment Upcoming Encounters Date Type Department Care Team (Late st Contact Info) Description 02/21/2024 9:45 EDT Office Visit [facility] Adult Primary Care - [address] [phone] Carrington Calderon MD [address] [place] [address] 1 [place] [phone] 02/27/2024 8:30 EDT Telemedicine [facility] Sleep Program - [address] [phone] Rn, Sleep 02/29/2024 10:30 EDT Appointment [facility] Radiology Nuclear Medicine and PET - [address] [phone] 02/29/2024 14:30 EDT Appointment [facility] Radiology Nuclear Medicine and PET - [address] [address] 03/01/2024 8:00 EDT Appointment [facility] Radiology Nuclear Medicine and PET [address] [address] 03/01/2024 9:30 EDT Appointment [facility] Radiology Nuclear Medicine and PET [address] [address] documented as of this encounter Procedures Procedure Name Priority Date/Time Associated Diagnosis Comments XR OUTSIDE IMAGES MSK Routine 09/12/2021 16:35 EDT documented in this encounter Results * XR OUTSIDE IMAGES MSK (09/12/2021 16:35 EDT) Narrative 09/12/2021 16:35 EDT This is a non-reportable exam. Provider Unknown [facility] OTHER IMAGING OR DERABLES documented in this encounter Visit Diagnoses Not on filedocumented in this encounter Care Teams Mold Dresser Relationship Specialty Start Date End Date Carrington Calderon MD 1 [facility] Level [address] [place] [phone] PCP - General Internal Medicine - Primary Care 12/09/20 documented as of this encounter
--- OUTSIDE RECORDS SUMMARY | 2023-12-16 00:35 | XMS_ITS | Encounter Summary ---
Author Organization [facility] Address [address] [place] [address] Care Team Providers Care Diamond Expert Name Role Phone Carrington Calderon MD Primary Care Provi anders Encounter Details Date Type Department Care Team (Late st Contact Info) Description 02/12/2021 Orders Only [facility] Adult Primary Care - [place] 1 [place], [place] [address] Carrington Calderon MD 1 [facility] Level 1 [place] [phone] Osteomyelitis of great toe of left foot (HCC-CMS) (Primary Dx) Social History Tobacco Use [...] Info) Description 02/21/2024 9:45 EDT Office Visit [facility] Adult Primary Care - [address] [phone] Carrington Calderon MD 1 [facility] Level 1 [place] [phone] 02/27/2024 8:30 EDT Telemedicine [facility] Sleep Program - [address] [place] [address] [place] [address] Rn, Sleep 02/29/2024 10:30 EDT Appointment [facility] Radiology Nuclear Medicine and PET - [address] [address] 02/29/2024 14:30 EDT Appointment [facility] Radiology Nuclear Medicine and PET - [address] [address] 03/01/2024 8:00 EDT Appointment [facility] Radiology Nuclear Medicine and PET - [address] [phone] 03/01/2024 9:30 EDT Appointment [facility] Radiology Nuclear Medicine and PET [address] [phone] documented as of this encounter Visit Diagnoses Diagnosis Osteomyelitis of great toe of left foot (HCC-CMS)- Primary documented in this encounter Care Teams Diamond Expert Relationship Specialty Start Date End Date Carrington Calderon MD 1 [facility] Level 1 [place] [phone] PCP - General Internal Medicine - Primary Care 12/09/20 documented as of this encounter
--- OUTSIDE RECORDS SUMMARY | 2023-12-16 00:35 | XMS_ITS | Encounter Summary ---
Author Organization [facility] Address [address] [place] [address] Care Team Providers Care Etl Analyst Developer Name Role Phone Carrington Calderon MD Primary Care Provi anders Reason for Visit * Reason Onset Date Comments Heartburn 01/26/2021 Encounter Details Date Type Department Care Team (Late st Contact Info) Description 01/26/2021 Telephone [facility] Adult Primary Care - [place] 1 [place], [place] [phone] Carrington Calderon MD 1 [facility] Level 1 [place] [phone] Heartburn Social History Tobacco Use Types Packs/Day Years [...] mouth daily. 90 capsule 3 01/26/2021 03/02/2022 documented in this encounter Miscellaneous Notes * Telephone Encounter - Eryn Navarrete RN - 01/26/2021 4921 EDT Spoke with patient and reviewed She confirmed she is not currently taking any medications for heartburn Sent Rx for omeprazole 20 mg daily to pharmacy per provider documentation, below. Patient agreed with this plan of care and verbalized understanding with no barriers noted. * Telephone Encounter - Kylah Weiner MD - 01/26/2021 1554 EDT Note is not completed. Can you call patient and get more info. Does she need follow up appointmetn with us? Is she already taking any heartburn medications? Could do [id number] daily if not. * Telephone Encounter - Marina Zamudio - 01/26/2021 1053 EDT Reason for Call: Heartburn Summary/Symptoms: Last night patient went ER for heartburn gastric pain. Patient was advised by theER that primary care doctor would prescribe medication for heartburn. Pt is looking for prescription to be sent to her pharmacy for heartburn Onset and Duration? Last night Appointment Offered? No. Marina Zamudio 01/26/2021 10:54 documented in this encounter Plan of Treatment Upcoming Encounters Date Type Department Care Team (Late st Contact Info) Description 02/21/2024 9:45 EDT Office Visit [facility] Adult Primary Care - [address] [phone] Carrington Calderon MD 1 [facility] 1 [place] [phone] 02/27/2024 8:30 EDT Telemedicine [facility] Sleep Program - [address] [phone] Rn, Sleep 02/29/2024 10:30 EDT Appointment [facility] Radiology Nuclear Medicine and PET - [address] [phone] 02/29/2024 14:30 EDT Appointment [facility] Radiology Nuclear Medicine and PET - [address] [address] 03/01/2024 8:00 EDT [facility] Rad[facility] Nuclear Medicine and PET - [address] [address] 03/01/2024 9:30 EDT Appointment [facility] Radiology Nuclear Medicine and PET - [address] [phone] documented as of this encounter Visit Diagnoses Not on filedocumented in this encounter Care Teams Etl Analyst Developer Relationship Specialty Start Date End Date Carrington Calderon MD 1 [facility] Level 1 [place] [phone] PCP - General Internal Medicine - Primary Care 12/09/20 documented as of this encounter
--- OUTSIDE RECORDS SUMMARY | 2023-12-16 00:35 | XMS_ITS | Encounter Summary ---
Author Organization [facility] Address [address] [place] [address] Care Team Providers Care Flight Communications Specialist Name Role Phone Carrington Calderon MD Primary Care Provi anders Reason for Visit * Reason Onset Date Comments Medications Refill 03/12/2021 Encounter Details Date Type Department Care Team (Late st Contact Info) Description 03/12/2021 Telephone [facility] Adult Primary Care - [place] 1 [place], [place] [address] Carrington Calderon MD 1 [facility] Level 1 [place] [address] Medications Refill Social History Tobacco [...] mg tabletIndications:Anxiety Take 1 Tablet by mouth 3 times daily as needed for Anxiety. Daily Max: 1.5 mg 10 Tablet 03/17/2021 03/27/2021 LORazepam (ATIVAN) 0.5 mg tabletIndications:Anxiety Take 1 Tablet by mouth 3 times daily as needed for Anxiety. Daily Max: 1.5 mg 30 Tablet 03/17/2021 03/17/2021 documented in this encounter Miscellaneous Notes * Telephone Encounter - Mily Torres - 03/19/2021 0819 EDT Patient has been scheduled for 10/22 * Telephone Encounter - Jesi Lua RN - 03/17/2021 1005 EDT Images from the original note were not included. Carrington Calderon MD Given Hugo Richards Rn 55 minutes ago (9:09) Chart reviewed. ??No showed a recent visit with me. ??Has not been seen in his office since November. ??I refilled 10 tablets, needs to be seen before this runs out if she wants additional refills. * Telephone Encounter - Karen Trujillo - 03/12/2021 0914 EDT Medication(s) Requested: Lorazepam Preferred Pharmacy: [facility] Is patient out of medication? Yes Last Refill Date: 12/31/2020 Last Visit Date with Ordering Provider: 11/04/2020 Next Non-Acute Visit Date Scheduled with Care Team: No. Karen Trujillo 03/12/2021 9:15 documented in this encounter Plan of Treatment Upcoming Encounters Date Type Department Care Team (Late st Contact Info) Description 02/21/2024 9:45 EDT Office Visit [facility] Adult Primary Care - [address] [phone] Carrington Calderon MD [address] [phone] 02/27/2024 8:30 EDT Telemedicine [facility] Sleep Program - [address] [phone] Rn, Sleep 02/29/2024 10:[address] [facility] Radiology Nuclear Medicine and PET - [address] [address] 02/29/2024 14:[address] [facility] Radiology Nuclear Medicine and PET - [address] [address] 03/01/2024 8:[address] [facility] Radiology Nuclear Medicine and PET [address] [address] 03/01/2024 9:[address] [facility] Radiology Nuclear Medicine and PET [address] [address] documented as of this encounter Visit Diagnoses Diagnosis Anxiety- Primary Anxiety state, unspecified documented in this encounter Discontinued Medications Medication Sig Discontinue Reason Start Date End Da te LORazepam (ATIVAN) 0.5 mg tablet Take 1 Tablet by mouth 3 times daily as needed for Anxiety. Daily Max: 1.5 mg Reorder 12/31/2020 03/12/2021 LORazepam (ATIVAN) 0.5 mg tabletIndications:Anxiet y Take 1 Tablet by mouth 3 times daily as needed for Anxiety. Daily Max: 1.5 mg 03/17/2021 03/17/2021 documented as of this encounter Care Teams Flight Communications Specialist Relationship Specialty Start Date End Date Carrington Calderon MD 1 [facility] 1 [place] [phone] PCP - General Internal Medicine - Primary Care 12/09/20 documented as of this encounter
--- OUTSIDE RECORDS SUMMARY | 2023-12-16 00:35 | XMS_ITS | Encounter Summary ---
Author Organization [facility] Address [address] [place] [address] Care Team Providers Care House Shorer Name Role Phone Carrington Calderon MD Primary Care Provi anders Reason for Visit * Reason Comments Other Encounter Details Date Type Department Care Team (Late st Contact Info) Description 07/09/2021 [facility] Adult Primary Care [facility] 1 [place], [place] [address] Carrington Calderon MD 1 [facility] Level 1 [place] [address] Other Social History Tobacco Use [...] FOR PAIN, DAILY MAX: 200MG 30 Tablet 07/10/2021 08/25/2021 documented in this encounter Miscellaneous Notes * Telephone Encounter - Jesi Love RN - 07/10/2021 1539 EST Dx Chronic midline low back pain without sciatica- M54.50, G89.29 Reviewed chart and pt has been taking both lorazepam and tramadol throughout 2020 Pharmacy notified about this info * Telephone Encounter - Berenice Mahan - 07/10/2021 1226 EST Sydnee from [facility] pharmacy calling to requestion some information. 1)She would like to know the associated diagnosis with the tramadol for their records. 2)She is also wondering if provider is aware she is taking tramadol and lorazepam. * Telephone Encounter - Jesi Love RN - 07/10/2021 1122 EST Medication(s) Requested: tramadol Preferred Pharmacy: [facility] Is patient out of medication? Unknown Last Refill Date: 06/17/21 Last Visit Date with Ordering Provider: 05/13/21 Next Non-Acute Visit Date Scheduled with Care Team: Yes. 08/25/21 JESI LOVE RN 07/10/2021 11:25 documented in this encounter Plan of Treatment Upcoming Encounters Date Type Department Care Team (Late st Contact Info) Description 02/21/2024 9:45 EDT Office Visit [facility] Adult Primary Care - [address] [address] Carrington Calderon MD [address] [place] [phone] 02/27/2024 8:30 EDT Telemedicine [facility] Sleep Program - [address] [address] Rn, Sleep 02/29/2024 10:30 EDT Appointment [facility] [place] Radiology Nuclear Medicine and PET - [address] [address] 02/29/2024 14:30 EDT [facility] Rad[facility] Nuclear Medicine and PET - [address] [address] 03/01/2024 8:00 EDT Appointment [facility] Radiology Nuclear Medicine and PET - [address] [address] 03/01/2024 9:30 EDT Appointment [facility] Radiology Nuclear Medicine and PET - [address] [phone] documented as of this encounter Visit Diagnoses Not on filedocumented in this encounter Discontinued Medications Medication Sig Discontinue Reason Start Date End Da te traMADol (ULTRAM) 50 mg tablet Take 1 Tablet by mouth every 6 hours as needed for Pain. Daily Max: 200 mg 06/17/2021 07/10/2021 documented as of this encounter Care Teams House Shorer Relationship Specialty Start Date End Date Carrington Calderon MD 1 [facility] Level 1 [place] [phone] PCP - General Internal Medicine - Primary Care 12/09/20 documented as of this encounter
--- OUTSIDE RECORDS SUMMARY | 2023-12-16 00:35 | XMS_ITS | Encounter Summary ---
Author Organization [facility] Address [address] [place] [address] Care Team Providers Care Family Service Counselor Name Role Phone Carrington Calderon MD Primary Care Provi anders Reason for Visit * Reason Comments New Patient Visit Gastroparesis * Consult (Routine/Next Available) - Order Cancelled Specialty Diagnoses / Procedures Referred By Contact Referred To Contact Gastroenterology and Hepatology Diagnoses Gastroparesis Carrington Calderon MD [address] [place] [phone] [facility] [place] [address] Referral ID Status Reason Start Date Expiration Date Visits Requested Visits Authorized [id number] Order Cancelled Specialty Services Required 06/11/2021 1 1 Encounter Details Date Type Department Care Team (Late st Contact Info) Description 10/09/2021 11:20 EDT Office Visit [facility] Gastroenterology - [facility] [address] [place], [place] [phone] Scott Arzate MD [address] [facility] [address] [place] [address] Gastroparesis (Primary Dx) Social History Tobacco Use Types [...] Sign Reading Time Taken Comments Blood Pressure 117/96 10/09/2021 1127 EDT Pulse 131 10/09/2021 1127 EDT Temperature - - Respiratory Rate - - Oxygen Saturation - - Inhaled Oxygen Concentration - - Weight 93.3 kg (205 lb 9.6 oz) 10/09/2021 1127 E DT Height 162.6 cm (5' 4.02) 10/09/2021 1127 EDT Body Mass Index 35.27 10/09/2021 1127 EDT documented in this encounter [...] as of this encounter Progress Notes * Scott Arzate MD - 10/09/2021 1120 EDT Gastroenterology & Hepatology Initial Visit Reason for Referral: Gastroparesis Referring Provider: Carrington Calderon HPI: Cristy Luo is a 36 year old woman with anxiety/depression, migraine, obesity, and diabetes, chronic back pain on tramadol as needed who is seen today for gastroparesis. The patient reports that about a year ago she started developing nausea and early satiety. She has since developed discrete episodes of severe nausea and uncontrolled vomiting that have brought her into the emergency department. In between these episodes she mostly just has early satiety and nausea. She was started on Reglan by her PCP about a year ago and initially was taking this three times per day, but is now down to once per day. Her last episode where she presented with uncontrolled vomiting was about 2 months ago. When these episodes occur she feels much better in a hot both or shower.In general she has to eat small frequent meals, rarely is she able to clear her plate. She intentionally lost about 300 pounds. She smokes marijuana daily for many years which is very helpful with treating her symptoms of anxiety, and she also does think it helps with her nausea. She takes lorazepam as well on a daily basis usually in the evening for her severe anxiety. She has not noticed any abnormal muscle movements. PMH: As stated in HPI. ROS: A [...] QID., Disp: 100 Each, Rfl: 5 ??? flash glucose scanning reader (FREESTYLE VIGNESH 2 READER) misc, 1 Device by misc (non-drug; combo route) route continuous., Disp: 1 Each, Rfl: 0 ??? flash glucose sensor (FREESTYLE VIGNESH 2 SENSOR) kit, 1 Device by misc (non- drug; combo route) route continuous., Disp: 6 Kit, Rfl: 3 ??? gabapentin (NEURONTIN) 300 mg capsule, Take 300mg in the morning and 900mg in the evening, Disp: 120 capsule, Rfl: 11 ??? insulin aspart U-100 (NOVOLOG FLEXPEN) 100 unit/mL (3 mL) injectable pen, Inject 9 Units into the skin 3 times daily with meals., Disp: 30 mL, Rfl: 2 ??? insulin glargine (LANTUS SOLOSTAR) 100 unit/mL (3 mL) injection pen, Inject 30 Units into the skin at bedtime for 90 days. (Patient taking differently: Inject 40 Units into the skin at bedtime. ), Disp: 27 mL, Rfl: 3 ??? insulin pen needles 31G x 5/16, Use 1 pen needle as directed 4 times daily., Disp: 400 Each, Rfl: 2 ??? lancets, Brand: Freestyle, use as directed if Freestyle Vignesh censor isnt working, Disp: 100 Each, Rfl: 3 ??? lancets, One Touch Delica or other brand compatible with lancing device and covered by patient's insurance., Disp: 100 Each, Rfl: 5 ??? lidocaine 5 % (LIDODERM) 5 % patch, Place 1 Patch onto the skin daily. Patch(es) may remain in place for up to 12 hours in any 24-hour period., Disp: 30 Patch, Rfl: 0 ??? LORazepam (ATIVAN) 0.5 mg tablet, Take 1 Tablet by mouth daily as needed for Anxiety. Daily Max: 0.5 mg, Disp: 30 Tablet, Rfl: 3 ??? Miscellaneous Medication - See Admin Instructions, Dispense one lancing device, generic brand as covered by insurance., Disp: 1 Each, Rfl: 0 ??? omeprazole (PRILOSEC) 20 mg capsule, Take 1 capsule by mouth daily., Disp: 90 capsule, Rfl: 3 ??? ondansetron (ZOFRAN-ODT) 4 mg disintegrating tablet, Take 1 Tablet by mouth every 8 hours as needed for Nausea., Disp: 30 Tablet, Rfl: 11 ??? SITagliptin (JANUVIA) 50 mg tablet, Take 1 Tab by mouth daily., Disp: 90 Tab, Rfl: 3 ??? TENS unit and electrodes combo pack, 1 Each by misc (non-drug; combo route) route daily., Disp:1 Each, Rfl: 0 ??? traMADol (ULTRAM) 50 mg tablet, TAKE 1 TABLET BY MOUTH EVERY 6 HOURS NEEDED FOR PAIN - DAILYMAX 4 TABLETS (200MG), Disp: 30 Tablet, Rfl: 0 Allergies Allergen Reactions ??? Citalopram Other (See Comments) suicidal ideation, approx 2012 ??? Other - See Comments Swelling of throat pomergrante ??? Advil [Ibuprofen] Hives Social History: Daily use of marijuana, mostly at bedtime Family History: No family history of IBD Physical Exam: VS: BP (!) 117/96 Pulse (!) 131 Ht 162.6 cm (64.02) Wt 93.3 kg (205 lb 9.6 oz) BMI 35.27 kg/m?? General: In NAD, Appropriately conversant HEENT: No scleral icterus, MMM Lungs: Easy work of breathing Extremities: No peripheral edema Skin: No jaundice Labs and Imaging: Lab Results Component Value Date ALT 21 12/06/2020 AST 22 12/06/2020 ALKPHOS 105 12/06/2020 TBIL <0.5 12/06/2020 Lab Results Component Value Date WBC 14.54 (H) 12/06/2020 HGB 15.5 (H) 12/06/2020 HCT 42.8 12/06/2020 MCV 86 12/06/2020 PLT 383 (H) 12/06/2020 CT A/P 10/02/20: IMPRESSION ?? 1. No acute inflammatory process identified in the abdomen and pelvis. 2. Nonobstructing left renal calculus, unchanged. Gastric emptying study 09/09/2020: Retention at 30 minutes: 97 %. ( Rapid under 70% ) Retention at 60 minutes: 88 %. ( Rapid under 30%, Delayed over 90% ) Retention at 120 minutes: 75 %. ( Delayed over 60% ) Retention at 180 minutes: 73 %. Retention at 240 minutes: 38 %. ( Delayed over 10% ) IMPRESSION Delayed gastric emptying for solid food. Impression: Cristy Luo is a 36 year old woman with uncontrolled diabetes (A1c 9.7), anxiety/depression, and daily marijuana use who is seen today for chronic nausea. The differential includes gastroparesis, particularly given her abnormal gastric emptying study and history of uncontrolled diabetes, as well as cannabis hyperemesis syndrome and cyclic vomiting syndrome. I also think it is possible that she has a background of gastroparesis and then also has either CHS or CVS superimposed. We discussed the mainstays of therapy for gastroparesis which are control of blood sugars and small frequent meals. I do think there is a role for medical therapy but she has been on Reglan for an extended period of time and I am hesitant to recommend that she continues this without at least a drug holiday due to the risk of irreversible tardive dyskinesia. Reassuringly there has been no sign of this and she has self tapered to just once daily without ill-effect. I would continue to try to taperthis to the lowest effective dose, and even stop for a period of time if able. Her intermittent episodes of uncontrolled emesis are suggestive of CHS or CVS. Her daily cannabis use and relief with hot showers argues strongly in favor of CHS. We discussed that there is no testing for this, other than to have an extended period off of all cannabis products. She is willing to try this, but wanted to meet again with her PCP to discuss alternative ways of managing her anxiety. If an extended cannabis free trial fails to resolve these episodes, then I think a trial of amitriptyline would be a reasonable next step to prevent CVS episodes. Recent EKG shows normal QTc. Plan: - Patient is going to re-engage with endocrinology regarding better control of her diabetes - I have referred her to see our GI dietitian here to help with ideas for dietary interventions forgastroparesis - She will try to slowly wean down her Reglan - Patient will discuss with her PCP regarding control of her anxiety so that she can do a trial offof cannabis products. We discussed that this has to be complete strict cessation in order to be effective - Follow up in about 3-4 months to discuss how she is doing with the above. If she continues to have episodes of uncontrolled vomiting will consider starting amitriptyline I spent a total of 52 minutes on the date of this encounter meeting with the patient and reviewing documentation/coordinating care as described in the above note. No procedures were performed at the time of the visit. Scott Arzate MD Gastroenterology & Hepatology documented in this encounter Plan of Treatment Upcoming Encounters Date Type Department Care Team (Late st Contact Info) Description 02/21/2024 9:45 EDT Office Visit [facility] Adult Primary Care - [address] [phone] Carrington Calderon MD [address] [phone] 02/27/2024 8:30 EDT Telemedicine [facility] Sleep Program - [address] [phone] Rn, Sleep 02/29/2024 10:30 EDT Appointment [facility] Radiology Nuclear Medicine and PET - [address] [phone] 02/29/2024 14:30 EDT Appointment [facility] Radiology Nuclear Medicine and PET - [address] [phone] 03/01/2024 8:00 EDT Appointment [facility] Radiology Nuclear Medicine and PET - [address] [phone] 03/01/2024 9:30 EDT Appointment [facility] Radiology Nuclear Medicine and PET - [address] [phone] documented as of this encounter Visit Diagnoses Diagnosis Gastroparesis- Primary documented in this encounter Care Teams Family Service Counselor Relationship Specialty Start Date End Date Carrington Calderon MD 1 [facility] 1 [place] [address] PCP - General Internal Medicine - Primary Care 12/09/20 documented as of this encounter
--- OUTSIDE RECORDS SUMMARY | 2023-12-16 00:36 | XMS_ITS | Encounter Summary ---
Author Organization [facility] Address [address] [place] [address] Care Team Providers Care Language Pathologist Name Role Phone Unavailable Primary Care Provider Unavailabl e Reason for Visit * Reason Onset Date Comments Back Pain 10/21/2020 Encounter Details Date Type Department Care Team (Late st Contact Info) Description 10/21/2020 Telephone [facility] Adult Primary Care - [address] [phone] Caroline Skinner MD [address] [place] [address] Back Pain Social History Tobacco Use Types Packs/Day Years Used Date Smoking Tobacco: Every Day Cigarettes 0.3 10 Started: 11/10/2010; Last attempted to quit: 08/07/2019 Smokeless Tobacco: Never Comments:06/13/20 actively try ing to quit about 5-8 cigs/day Alcohol Use Standard Drinks/Week Comments Yes 0 (1 standard drink = 0.6 oz pur e alcohol) rarely AUDIT-C Answer Date Recorded Frequency of Alcohol Consumption Monthly or less 11/03/2018 Average Number of Drinks 1 or 2 019 Frequency of Binge Drinking Never 10/06 PHQ-2 Answer Date Recorded PHQ-2 SUBTOTAL 0 [...] have Coronavirus / COVID-19? No / Unsure 10/02/2020 18:50 EDT documented as of this encounter Functional [...] Miscellaneous Notes * Telephone Encounter - Kamini Whittaker - 10/22/2020 0913 EDT Spoke with patient. She had called the other day as PCP has put in an XR for her for her back, but this was apparently not actually ordered so she didn't get this done. Can't move from sitting to standing easily. Laying down, if straightening leg, causes lightening bolt pain to the tips of her toes. Hurt so bad last night and this morning almost vomited from the pain. Taking extra strength tylenol but not touching the pain. The right side of back is quite swollen compared to the left side as well. Scheduled with Vicki Mosqueda at 10am, in office visit. will drive her to the office but wait in the parking lot. Patient verbalized understanding and agrees with plan. No barriers to learning identified. * Telephone Encounter - Kamini Whittaker - 10/22/2020 0905 EDT LM for patient to call back to discuss. * Telephone Encounter - Tonja Alejandro PA-C - 10/22/2020 0900 EDT Can you call patient and see how she is doing? Does she still have the acute back pain? Is this different than the chronic pain? I would recommend either urgent care or office visit. thanks * Telephone Encounter - Caroline Skinner MD - 10/21/2020 1910 EDT personnel generalist manager message: arnold calling on her behalf. Severe back pain. Swelling on one side of low back. Patient has AODM. Has h/o back pain. Pain is shooting down leg. No fever. No leg weakness. No bowelor bladder changes. Patient is on oxycodone and gabapentin. Patient reports they called office today but I do not see any record. is wondering if they should bring her to the ED tonight or try to make an appointment at the office tomorrow. I advised that they try to make an appointment at the office tomorrow as there are not red flag symptoms present. I will forward this message to her provider. documented in this encounter Plan of Treatment Upcoming Encounters Date Type Department Care Team (Late st Contact Info) Description 02/21/2024 9:45 EDT Office Visit [facility] Adult Primary Care - [address] [address] Carrington Calderon MD 1 [facility] 1 [place] [address] 02/27/2024 8:30 EDT Telemedicine [facility] Sleep Program - [address] [address] Rn, Sleep 02/29/2024 10:30 EDT Appointment [facility] Radiology Nuclear Medicine and PET - [address] [phone] 02/29/2024 14:30 EDT Appointment [facility] Radiology Nuclear Medicine and PET - [address] [phone] 03/01/2024 8:00 EDT Appointment [facility] Radiology Nuclear Medicine and PET - [address] [phone] 03/01/2024 9:30 EDT Appointment [facility] Radiology Nuclear Medicine and PET [address] [phone] documented as of this encounter Visit Diagnoses Not on filedocumented in this encounter
--- OUTSIDE RECORDS SUMMARY | 2023-12-16 00:36 | XMS_ITS | Encounter Summary ---
Author Organization [facility] Address [address] [place] [address] Care Team Providers Care Station Tender Name Role Phone Unavailable Primary Care Provider Unavailabl e Reason for Visit * Reason Comments Back Pain Encounter Details Date Type Department Care Team (Late st Contact Info) Description 11/04/2020 14:15 EDT Office Visit [facility] Adult Primary Care - [address] [phone] Tonja Alejandro PA-C [address] [place] [address] [place] [phone] Chronic midline low back pain with right-sided sciatica (Primary Dx) Social History Tobacco Use Types Packs/Day Years Used Date Smoking Tobacco: Every Day Cigarettes 0.3 10 Started: 11/10/2010; Last attempted to quit: 08/07/2019 Smokeless Tobacco: Never Tobacco Cessation:Ready to Q uit: Yes Comments:06/13/20 actively trying to quit about 5-8 [...] have Coronavirus / COVID-19? No / Unsure 11/04/2020 14:00 EDT documented as of this encounter Last Filed Vital Signs Vital Sign Reading Time Taken Comments Blood Pressure 124/70 11/04/2020 1406 EDT Pulse 84 11/04/2020 1406 EDT Temperature 36.9 ??C (98.4 ??F) 11/04/2020 1406 EDT Respiratory Rate 20 11/04/2020 1406 EDT Oxygen Saturation - - Inhaled Oxygen Concentration - - Weight 95.3 kg (210 lb) 11/04/2020 1406 EDT Height 162.6 cm (5' 4) 11/04/2020 1406 EDT Body Mass Index 36.05 11/04/2020 1406 EDT [...] HCl (REGLAN) 10 mg tablet Take 1 Tab by mouth 3 times daily before meals for 30 days. 90 Tab 11/04/2020 11/20/2020 traMADol (ULTRAM) 50 mg tablet Take 1 Tab by mouth every 6 hours as needed for Pain. Daily Max: 200 mg 30 Tab 11/04/2020 06/17/2021 documented in this encounter Progress Notes * Tonja Alejandro PA-C - 11/04/2020 1415 EDT Internal Medicine Primary Care Follow up Service Date: 11/04/2020 CC: follow up Acute on chronic back pain -started 2 weeks ago - got up out of bed and felt like she was getting electrocuted on the right lower side. She got up and fell to her knee multiple times. -was seen in the clinic a couple weeks ago and given muscle relaxant- no improvement --she starts physical therapy next week ( [facility]) -unable to sleep due to pain -any physical activity makes her pain worse -transitioning from sitting to standing makes it worse -burning sharp and aching pain in right buttock and down posterior right leg stopping at the knee -no saddle paresthesia or change in bowel habits Past Medical and Surgical History, Family History, Social History, Problem list, Medication list and Allergies were reviewed in [facility] and updated as appropriate. Vitals BP 124/70 Pulse 84 Temp 36.9 ??C (98.4 ??F) (Tympanic) Resp 20 Ht 162.6 cm (64) Wt 95.3 kg (210 lb) BMI 36.05 kg/m?? General: Alert, cooperative, no distress Head: normocephalic, without obvious abnormality Neuro: alert and oriented x 3, antalgic gait, positive straight leg test on right, strength 3/5 on right hip flexion and knee extension due to pain Musculoskeletal: No joint swelling, effusion, or redness. Psychological: well groomed, communicating fluently, alert, good eye contact. No cognitive distortions. Normal mood, normal affect, no evidence of hallucinations or delusions. Recent Labs/Imaging were reviewed in the EMR. A/P Acute on chronic low back pain -Patient has a history of chronic low back pain however, she now has pain to the point where it is debilitating and she is unable to function throughout the day. A lot of her pain is neuropathic and she has most difficulty sleeping at night. She is already on gabapentin. -Patient is not responding to muscle relaxants. Will use tramadol as needed for pain -We will also get imaging as this is been greater than 6 weeks.-I have ordered an MRI of the lumbarspine. We will get done at [place] [facility] -Continue physical therapy Tonja Alejandro PA-C [facility] 11/04/2020 14:45 I spent a total of 20 minutes on the date of this encounter meeting with the patient and reviewing documentation/coordinating care as described in the above note. No procedures were performed at the time of the visit. I was directly supervised by . documented in this encounter Plan of Treatment Upcoming Encounters Date Type Department Care Team (Late st Contact Info) Description 02/21/2024 9:45 EDT Office Visit [facility] Adult Primary Care [address] [address] Carrington Calderon MD [address] [place] [phone] 02/27/2024 8:30 EDT Telemedicine [facility] Sleep Program - [address] [address] Rn, Sleep 02/29/2024 10:30 EDT Appointment [facility] Radiology Nuclear Medicine and PET - [address] [address] 02/29/2024 14:30 EDT Appointment [facility] Radiology Nuclear Medicine and PET [address] [address] 03/01/2024 8:00 EDT Appointment [facility] Radiology Nuclear Medicine and PET [address] [address] 03/01/2024 9:30 EDT Appointment [facility] Radiology Nuclear Medicine and PET - [address] [address] documented as of this encounter Visit Diagnoses Diagnosis Chronic midline low back pain with right-sided sciatica- Primary documented in this encounter Discontinued Medications Medication Sig Discontinue Reason Start Date End Da te oxyCODONE (ROXICODONE) 5 mg immediate release tablet Take 1 Tab by mouth every 4 hours as needed for Pain. Daily Max: 30 mg Therapy completed 08/20/2020 11/04/2020 metoclopramide HCl (REGLAN) 10 mg tablet Take 1 Tab by mouth 3 times daily before meals for 30 days. Reorder 10/03/2020 11/04/2020 documented as of this encounter
--- OUTSIDE RECORDS SUMMARY | 2023-12-16 00:36 | XMS_ITS | Encounter Summary ---
Author Organization [facility] Address [address] [place] [address] Care Team Providers Care Preservative Filler Machine Operator Name Role Phone Unavailable Primary Care Provider Unavailabl e Reason for Visit * Reason Onset Date Comments Back Pain 10/29/2020 Encounter Details Date Type Department Care Team (Late st Contact Info) Description 10/29/2020 Telephone [facility] Adult Primary Care - [address] [phone] Tonja Alejandro PA-C [facility] [address] [place] [phone] Back Pain Social History Tobacco Use Types [...] have Coronavirus / COVID-19? No / Unsure 10/22/2020 10:18 EDT documented as of this encounter Functional [...] * Telephone Encounter - Ethan Aquino - 10/30/2020 1002 EDT Patient called back to say that she can wait until Tuesday of next week to see EUNICE Alejandro. * Telephone Encounter - Jesi Love RN - 10/30/2020 0937 EDT Images from the original note were not included. Left message for pt stating provider has advised she should be seen for re-eval and possible imaging. Pt has appt 11/04/20, asked her to call back if she feels she cannot wait until that time and we can see about getting her in sooner. JESI LOVE RN 10/30/2020 9:46 Moshe Ferrer MD Gay, Cristine, MARCELO ?? Dr. Luo's plan was for a visit to re-eval and consider imaging. Please get her back in with any provider. Thanks * Telephone Encounter - Jesi Love RN - 10/29/2020 1052 EDT Spoke with pt, she states her back pain is not improved from OV last week. She feels the methocarbamol and lidocaine are not helping. She states back pain was so bad yesterday she was in tears. She states pain still is on the right side and radiates down her right leg, she also said she was having numbness in her calf which she was thinking was related her her neuropathy in feet but now numbness has gone up to her thigh. She is voiding fine and has a little constipation. Will check with provider and call her back with plan. * Telephone Encounter - Rosalina Quezada - 10/29/2020 1012 EDT Patient called because she was prescribed lidocaine and methocarbamol for back pain after a visit 10/22, which she feels is not helping. She is hoping another medication can be prescribed. documented in this encounter Plan of Treatment Upcoming Encounters Date Type Department Care Team (Late st Contact Info) Description 02/21/2024 9:45 EDT Office Visit [facility] Adult Primary Care - [address] [phone] Carrington Calderon MD [address] [place] [address] 1 [place] [phone] 02/27/2024 8:30 EDT Telemedicine [facility] Sleep Program - [address] [place] [address] Rn, Sleep 02/29/2024 10:30 ED[facility] Nuclear Medicine and PET - [address] [address] 02/29/2024 14:30 EDT [facility] Radiology Nuclear Medicine and PET - [address] [address] 03/01/2024 8:00 EDT [facility] Radiology Nuclear Medicine and PET - [address] [address] 03/01/2024 9:30 EDT [facility] [address] [address] documented as of this encounter Visit Diagnoses Not on filedocumented in this encounter
--- OUTSIDE RECORDS SUMMARY | 2023-12-16 00:36 | XMS_ITS | Encounter Summary ---
Author Organization [facility] Address [address] [place] [address] Care Team Providers Care Blueprint Processor Name Role Phone Unavailable Primary Care Provider Unavailabl e Reason for Visit * Reason Onset Date Comments Emesis 11/20/2020 Encounter Details Date Type Department Care Team (Late st Contact Info) Description 11/20/2020 Telephone [facility] Adult Primary Care - [address] [phone] Tonja Alejandro PA-C [address] [place] [address] [place] [phone] Emesis Social History Tobacco Use Types Packs/Day Years [...] have Coronavirus / COVID-19? No / Unsure 11/20/2020 9:23 EDT documented as of this encounter Functional [...] 90 days. 270 Tablet 3 11/20/2020 03/02/2022 metoclopramide HCl (REGLAN) 10 mg tablet Take 1 Tablet by mouth 3 times daily before meals for 30 days. 90 Tablet 11/20/2020 11/20/2020 documented in this encounter Miscellaneous Notes * Addendum Note - Roseline Whaley, MARCELO - 11/20/2020 1004 EDTAddended by: ROSELINE WHALEY on: 11/20/2020 10:04 Modules accepted: Orders * Telephone Encounter - Roseline Whaley RN - 11/20/2020 0957 EDT I reordered reglan with no refills, it looks like she has been receiving a short supply. ??Please resend with refills if you are okay with giving a 90 day supply. THank you Routing comment You 1 hour ago (8:54) Late entry: from my routing message to Tonja DAWSON. * Telephone Encounter - Tonja Alejandro PA-C - 11/20/2020 0944 EDT Agree with refills, but would recommend evaluation at if the reglan doesn't help. * Telephone Encounter - Roseline Whaley RN - 11/20/2020 0841 EDT Spoke with : He reports pt has been out of her stomach medication, she started vomiting during the night and is getting to the point that she is not able to stop, when this has happened in the past she has gottenseverely dehydrated. He wanted to know if she should come here or ED. Recommended if she has gotten into the cycle again and needs fluids we cannot give them here, she would need to go to UC/ED. THey would prefer . Cautioned him that if she needs to be admitted she may need to be brought over to the hospital via ambulance, but can talk to triage nurse at [facility]. Called and spoke briefly with pt: She endorsed husbands assessment that she has gotten into a cycle of vomiting and starting to get dehydrated. Denies lightheaded, dizzy or other symptoms at this time. She knows she needs to stop the vomiting and replace her fluids. She agreed with going to UC/ED. She also said that the pharmacy did not receive previous reglan script. Resending to [facility]. The patient indicates understanding of these issues and agrees with the plan. No barriers noted. Called [facility] and gave report to charge nurse. * Telephone Encounter - Mily Torres - 11/20/2020 0817 EDT Reason for Call: Emesis Summary/Symptoms: Patient's is calling to state that the patient has been without her stomach medication for a few days. Patient's is not sure of the name of the medication. Patient'shusband states that when the patient starts vomiting it's hard for her to stop and she gets dehydrated and usually ends up in the ED. Patient's wanted to speak with a nurse EDGARD as to what they should do. Onset and Duration? Yesterday Appointment Offered? No Mily Torres 11/20/2020 8:18 documented in this encounter Plan of Treatment Upcoming Encounters Date Type Department Care Team (Late st Contact Info) Description 02/21/2024 9:45 EDT Office Visit [facility] Adult Primary Care - [address] [phone] Carrington Calderon MD [address] [place] [phone] 02/27/2024 8:30 EDT Telemedicine [facility] Sleep Program - [address] 112261 Rn, Sleep 02/29/2024 10:30 EDT Appointment [facility] Radiology Nuclear Medicine and PET - [address] [id number] 02/29/2024 14:30 EDT Appointment [facility] Radiology Nuclear Medicine and PET - [address] [phone] 03/01/2024 8:00 EDT Appointment [facility] Radiology Nuclear Medicine and PET - [address] [address] 03/01/2024 9:30 EDT Appointment [facility] Radiology Nuclear Medicine and PET - [address] [address] documented as of this encounter Visit Diagnoses Not on filedocumented in this encounter Discontinued Medications Medication Sig Discontinue Reason Start Date End Da te metoclopramide HCl (REGLAN) 10 mg tablet Take 1 Tab by mouth 3 times daily before meals for 30 days. Reorder 11/04/2020 11/20/2020 metoclopramide HCl (REGLAN) 10 mg tablet Take 1 Tablet by mouth 3 times daily before meals for 30 days. Reorder 11/20/2020 11/20/2020 documented as of this encounter
--- OUTSIDE RECORDS SUMMARY | 2023-12-16 00:36 | XMS_ITS | Encounter Summary ---
Author Organization [facility] Address [address] [place] [address] Care Team Providers Care Paper Rewinder Name Role Phone Unavailable Primary Care Provider Unavailabl e Encounter Details Date Type Department Care Team (Latest Contact Info) Description 12/06/2020 Travel Social History Tobacco Use Types Packs/Day [...] [facility] Adult Primary Care - [address] [phone] Carrington Calderon MD 1 [facility] 1 [place] [phone] 02/27/2024 8:30 EDT Telemedicine [facility] Sleep Program - [address] [phone] Rn, Sleep 02/29/2024 10:30 EDT Appointment [facility] Radiology Nuclear Medicine and PET - [address] [phone] 02/29/2024 14:30 EDT Appointment [facility] Radiology Nuclear Medicine and PET - [address] [phone] 03/01/2024 8:00 EDT Appointment [facility] Radiology Nuclear Medicine and PET - [address] [phone] 03/01/2024 9:30 EDT Appointment [facility] Radiology Nuclear Medicine and PET - [address] [address] documented as of this encounter Visit Diagnoses Not on filedocumented in this encounter
--- OUTSIDE RECORDS SUMMARY | 2023-12-16 00:36 | XMS_ITS | Encounter Summary ---
Author Organization [facility] Address [address] [place] [address] Care Team Providers Care District Sales Leader Name Role Phone Unavailable Primary Care Provider Unavailabl e Encounter Details Date Type Department Care Team (Latest Contact Info) Description 10/02/2020 Travel Social History Tobacco Use Types Packs/Day [...] you have serious difficulty h earing? No 08/09/2020 Are you blind or do you have serious difficulty seeing, even when wearing glasses? No 08/09/2020 Do you have serious difficul ty walking or climbing stairs? (5 years old or older) No 08/09/2020 Do you have difficulty dress ing or bathing? (5 years old or older) No 08/09/2020 Because of a physical, menta l, or emotional condition, do you have difficulty doing errands alone such as visiting a doctor's office or shopping? (15 years old or older) No 08/09/2020 Cognitive Status Response Date of Assessm ent Because of a physical, menta l, or emotional condition, do you have serious difficulty concentrating, remembering, or making decisions? (5 years old or older) No 08/09/2020 documented as of this encounter Plan of Treatment Upcoming Encounters Date Type Department Care Team (Late st Contact Info) Description 02/21/2024 9:45 EDT Office Visit [facility] Adult Primary Care - [address] [phone] Carrington Calderon MD [address] [place] [phone] 02/27/2024 8:30 EDT Telemedicine [facility] Sleep Program - [address] [address] Rn, Sleep 02/29/2024 10:[address] [facility] Radiology Nuclear Medicine and PET - [address] [phone] 02/29/2024 14:[address] [facility] Radiology Nuclear Medicine and PET - [address] [phone] 03/01/2024 8:[address] [facility] Radiology Nuclear Medicine and PET - [address] [phone] 03/01/2024 9:30 EDT Appointment [facility] Radiology Nuclear Medicine and PET - [address] [address] documented as of this encounter Visit Diagnoses Not on filedocumented in this encounter
--- OUTSIDE RECORDS SUMMARY | 2023-12-16 00:36 | XMS_ITS | Encounter Summary ---
Author Organization [facility] Address [address] [place] [address] Care Team Providers Care Filling Hauler Name Role Phone Unavailable Primary Care Provider Unavailabl e Encounter Details Date Type Department Care Team (Latest Contact Info) Description 11/04/2020 Travel Social History Tobacco Use Types Packs/Day [...] 14:00 EDT documented as of this encounter Functional [...] 9:45 EDT Office Visit [facility] Adult Primary Care - [address] [phone] Carrington Calderon MD [address] [place] [phone] 02/27/2024 8:30 EDT Telemedicine [facility] Sleep Program - [address] [address] Rn, Sleep 02/29/2024 10:30 EDT Appointment [facility] Radiology Nuclear Medicine and PET - [address] [phone] 02/29/2024 14:30 EDT Appointment [facility] Radiology Nuclear Medicine and PET - [address] [phone] 03/01/2024 8:00 EDT Appointment [facility] Radiology Nuclear Medicine and PET - [address] [phone] 03/01/2024 9:30 EDT Appointment [facility] Radiology Nuclear Medicine and PET - [address] [address] documented as of this encounter Visit Diagnoses Not on filedocumented in this encounter
--- OUTSIDE RECORDS SUMMARY | 2023-12-16 00:36 | XMS_ITS | Encounter Summary ---
Author Organization [facility] Address [address] [place] [address] Care Team Providers Care Television Engineering Teacher Name Role Phone Unavailable Primary Care Provider Unavailabl e Reason for Visit * Reason Onset Date Comments Medications Refill 10/07/2020 Encounter Details Date Type Department Care Team (Late st Contact Info) Description 10/07/2020 Telephone [facility] Endocrinology - [facility] [address] [place] [address] Sara Zafar NP [address] [facility] [address] [place] [phone] Medications Refill Social History Tobacco Use [...] Dispensed Refills Start Date End Da te Miscellaneous Medication - See Admin Instructions Dispense one lancing device, generic brand as covered by insurance. 1 Each 10/07/2020 01/29/2022 documented in this encounter Miscellaneous Notes * Telephone Encounter - Ariana Lowe - 10/07/2020 1359 EDT Pharmacy called to request new lancing device prescription for patient as patients lancing device broke. Per pharmacy it can be generic lancing device as pharmacy is checking if insurance will cover.Please call pharmacy with questions/concerns. documented in this encounter Plan of Treatment Upcoming Encounters Date Type Department Care Team (Late st Contact Info) Description 02/21/2024 9:45 EDT Office Visit [facility] Adult Primary Care - [address] [phone] Carrington Calderon MD 1 [facility] 1 [place] [phone] 02/27/2024 8:30 EDT Telemedicine [facility] Sleep Program - [address] [address] Rn, Sleep 02/29/2024 10:30 EDT Appointment [facility] Radiology Nuclear Medicine and PET [address] [phone] 02/29/2024 14:30 EDT Appointment [facility] Radiology Nuclear Medicine and PET [address] [phone] 03/01/2024 8:00 EDT Appointment [facility] Radiology Nuclear Medicine and PET - [address] [phone] 03/01/2024 9:30 EDT Appointment [facility] Radiology Nuclear Medicine and PET [address] [phone] documented as of this encounter Visit Diagnoses Not on filedocumented in this encounter
--- OUTSIDE RECORDS SUMMARY | 2023-12-16 00:36 | XMS_ITS | Encounter Summary ---
Author Organization [facility] Address [address] [place] [address] Care Team Providers Care Traffic Recorder Name Role Phone Unavailable Primary Care Provider Unavailabl e Reason for Visit * Reason Onset Date Comments Medication Problem 10/06/2020 Encounter Details Date Type Department Care Team (Late st Contact Info) Description 10/06/2020 Telephone [facility] Adult Primary Care - [address] 100781 Tonja Alejandro PA-C [address] [place] [address] [place] [phone] Medication Problem Social History Tobacco Use Types [...] Dispensed Refills Start Date End Da te lancets Brand: Freestyle, use as directed if Freestyle Vignesh censor isnt working 100 Each 3 10/06/2020 03/16/2023 blood glucose test strips Brand: FreeStyle Precision Cristo, use as directed if Freestyle Vignesh censor isnt working 100 Each 3 10/06/2020 06/27/2023 documented in this encounter Miscellaneous Notes * Telephone Encounter - Tonja Alejandro PA-C - 10/06/2020 1611 EDT Orders have been signed * Telephone Encounter - Jesi Lua RN - 10/06/2020 1540 EDT Spoke with pharmacist, they state they have been having issues with the sensor and would like test strips to use as back up. (Freestyle Precision Cristo test strips can be used with the reader) will pend scripts. The Lancing device is a DME that will need to be signed and faxed * Telephone Encounter - Rosalina Quezada - 10/06/2020 1453 EDT Incoming fax from [facility] states the rx for lancets does not have how many times a day the patient would be using this. Pharmacy adds note, 'Patient needs test strips, lancets, and Lancing devicethat are compatible with Freestyle Vignesh in case sensor goes down. documented in this encounter Plan of Treatment Upcoming Encounters Date Type Department Care Team (Late st Contact Info) Description 02/21/2024 9:45 EDT Office Visit [facility] Adult Primary Care - [address] [phone] Carrington Calderon MD 1 [facility] 1 [place] [phone] 02/27/2024 8:30 EDT Telemedicine [facility] Sleep Program - [address] [phone] Rn, Sleep 02/29/2024 10:30 EDT Appointment [facility] Radiology Nuclear Medicine and PET - [address] [phone] 02/29/2024 14:30 EDT Appointment [facility] Radiology Nuclear Medicine and PET - [address] [phone] 03/01/2024 8:00 EDT Appointment [facility] Radiology Nuclear Medicine and PET - [address] [address] 03/01/2024 9:30 EDT Appointment [facility] Radiology Nuclear Medicine and PET - [address] [address] documented as of this encounter Visit Diagnoses Diagnosis 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
--- OUTSIDE RECORDS SUMMARY | 2023-12-16 00:36 | XMS_ITS | Encounter Summary ---
Author Organization [facility] Address [address] [place] [address] Care Team Providers Care Tissue Technician Name Role Phone Unavailable Primary Care Provider Unavailabl e Reason for Visit * Reason Comments Chest Pain pt has been feeling palpitations since tuesday and vomiting bright red blood since tuesday. Has had general malaise sincetuesday as well. pt vomits 20min after of consumption. had 4mg zofran and 250ml of NS * Auth/Cert Specialty Diagnoses / Procedures Referred By Contac t Referred To Contact Diagnoses Intractable vomiting Vomiting Referral ID Status Reason Start Date Expiration Date Visits Re quested Visits Authorized [id number] 1 1 Encounter Details Date Type Department Care Team (Late st Contact Info) Description 10/02/2020 18:44 EDT - 10/03/2020 12:37 EDT Hospital Encounter [facility] [address] [place] [address] Jonas Ambrosio MD [address] [facility], [address] [place] [address] Bonita See MD [address] [id number] Intractable vomiting (Primary Dx); Intractable vomiting with nausea, unspecified vomiting type; Diabetic foot infection (HCC-CMS); 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, 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 (HCC-CMS) Discharge Disposition: Home-Health Care Svc Social History Tobacco Use Types Packs/Day Years [...] 18:50 EDT documented as of this encounter Last Filed Vital Signs Vital Sign Reading Time Taken Comments Blood Pressure 151/96 10/03/2020 0836 EDT Pulse 79 10/03/2020 0836 EDT Temperature 36.8 ??C (98.2 ??F) 10/03/2020 0836 EDT Respiratory Rate 16 10/03/2020 0559 EDT Oxygen Saturation 95% 10/03/2020 0836 EDT Inhaled Oxygen Concentration - - Weight 91.6 kg (201 lb 14.4 oz) 10/02/2020 2350 EDT Height 164.6 cm (5' 4.8) 10/02/2020 2350 EDT Body Mass Index 33.81 10/02/2020 2350 EDT documented in this encounter Functional Status [...] 10/02/2020 documented as of this encounter Discharge Summaries * Carrington Padilla MD - 10/03/2020 0831 EDT Medicine Discharge Summary Primary Care Provider: Tonja Alejandro Attending Physician: Bonita See MD Admit Date: 10/02/2020 Discharge Date: 10/03/20 Disposition: Home or self care Reason for Admission: Intractable Vomiting Principal/Final Diagnosis: Intractable vomiting Additional Problems Managed in the Hospital Active Hospital Problems Diagnosis Date Noted ??? *Intractable vomiting 10/02/2020 ??? Vomiting 10/03/2020 Resolved Hospital Problems No resolved problems to display. Hospital Course: Patient is a 35-year-old female with past medical history of type 2 diabetes, gastroparesis, migraines, frequent marijuana use, status post salpingectomy 08/24 who admitted to the [facility] with intractable nausea and vomiting. Patient has had frequent nauseaat baseline was admitted emergency department 1 month ago with the same, at which point she was diagnosed with gastroparesis by gastric emptying study and started on metoclopramide. Patient ran out of her metoclopramide over the weekend and was unable to fill medication. In emergency department shewas given IV Zofran, capsaicin cream, 1 L Plasma-Lyte, EKG normal. CT abdomen pelvis showed small hi atal hernia otherwise no acute pathology. Patient responded well to Zofran and metoclopramide. Patient reported symptoms of cannabinoid hyperemesis syndrome, including nausea possibly brought onby smoking cannabis, relief via hot showers, and long history of cannabis use. She expressed interest in stopping cannabis use, but feels it is useful for her anxiety. Patient reported significant anxiety symptoms and dislikes taking Xanax for her symptoms. She askedabout other options and we discussed some pharmacologic options and psychology services for CBT. By the morning of 10/03/2020 patient's vital signs within normal limits, labs within normal limits, patient was tolerating regular diet and discharged home with prescription for reglan. Condition at Discharge: Good Clinical Issues Needing Follow-up: - Intractable N/V: dc'd with reglan prescription - Anxiety: follow up with PCP - Possible Cannabinoid hyperemesis syndrome: follow up with PCP - Non-healing left toe wound: follow up with Podiatry (referral placed) Allergies Allergen Reactions ??? Citalopram Other (See Comments) suicidal ideation, approx 2012 ??? Other - See Comments Swelling of throat pomergrante ??? Advil [Ibuprofen] Hives Immunization History Administered Date(s) Administered ??? Rho(D) Immune Globulin IM 10/26/2018, 10/03/2019, 06/20/2020 ? ? Tdap Vaccine =>7YO IM 06/06/2016 Results Pending at Discharge Test results still pending from this admission None Follow-up appointments and procedures Amb Consult/Follow Up Podiatry Reason for Request: Non-healing left toe wound Authorizing Provider: Myles Bennett MD Amb Consult/Follow Up Primary Care Physician Reason for Request: Recent admission for intractable N/V Authorizing Provider: Myles Bennett MD Discharge Handoff Communication Contact was not made at the time of discharge Discharge Summary Completed By: Manuela Bennett MD Patient seen and examined. I agree with resident note including physical exam and assessment and plan. Greater than 30 minutes was spent coordinating discharge including reviewing the discharge summary and counseling the patient. Enzo Padilla MD Internal Medicine Hospitalist documented in this encounter Medications at Time of Discharge Medication Sig Dispensed Refills Start Date End Date acetaminophen (TYLENOL) 325 mg tablet Take 2 Tabs by mouth every 4 hours as needed for Pain. 08/20/2020 blood glucose meter One Touch Verio Flex meter. 1 Each 10/04/2019 12/21/2021 blood glucose test strips One Touch Verio [...] VIGNESH 2 SENSOR) kit 1 Device by mis (non-drug; combo route) route continuous. 6 Kit 3 10/01/2020 03/15/2022 gabapentin (NEURONTIN) 100 mg capsule Take 100 mg by mouth 2 times daily before breakfast and lunch. 10/22/2020 gabapentin (NEURONTIN) 300 mg capsule Take 1 Cap by mouth 3 times daily. 90 Cap 2 08/01/2020 10/22/2020 haloperidoL (HALDOL) 5 mg tablet Take 1 Tab by mouth daily as needed for Nausea. 10 Tab 10/01/2020 10/10/2020 insulin aspart U-100 (NOVOLOG FLEXPEN) 100 unit/mL [...] 12/04/2019 12/21/2021 insulin pen needles 31G x 10/19Indications:Type 2 diabetes mellitus with hyperglycemia, with long-term current use of insulin ([facility]) Use 1 pen needle as directed 4 times daily. 400 Each 2 09/02/2020 03/16/2023 lancets One Touch Delica or other brand compatible with lancing device and covered by patient's insurance. 100 Each 5 10/01/2020 03/16/2023 LORazepam (ATIVAN) 0.5 mg tablet Take 1 Tab by mouth 3 times daily as needed for up to 14 days for Anxiety. Daily Max: 1.5 mg 30 Tab 10/01/2020 10/22/2020 metoclopramide HCl (REGLAN) 10 mg tablet Take 1 Tab by mouth 3 times daily before meals for 30 days. 90 Tab 10/03/2020 11/04/2020 nicotine (NICODERM CQ) 7 mg/24 hr patch Apply one patch only daily on skin without hair. Apply to a different skin site at the same time each day. 14 Patch 06/13/2020 03/27/2021 oxyCODONE (ROXICODONE) 5 mg immediate release tablet Take 1 Tab by mouth every 4 hours as needed for Pain. Daily Max: 30 mg 5 Tab 08/20/2020 11/04/2020 SITagliptin (JANUVIA) 50 mg tablet Take 1 Tab by mouth daily. 90 Tab 3 09/02/2020 03/15/2022 TENS unit and electrodes combo pack 1 Each by misc (non-drug; combo route) route daily. 1 Each 08/01/2020 05/21/2022 documented as of this encounter Ordered Prescriptions Prescription Sig Dispensed Refills Start Date End Da te metoclopramide HCl (REGLAN) 10 mg tablet Take 1 Tab by mouth 3 times daily before meals for 30 days. 90 Tab 10/03/2020 11/04/2020 documented in this encounter Discharge Disposition Disposition Code Departure Means Destination Home-Health [facility] documented in this encounter Progress Notes * Carlos Gabriel - 10/03/2020 1237 EDT Case Management Note: Patient was discharged home to self care prior to initial CM assessment. This gag writer reviewed the patient's chart and discussed the patient's situation with the medical team. No case management dc needs were identified. Carlos Gabriel RN, DENTAL TECHNICIAN APPRENTICE, [facility] Pager # [phone] * Shirley Monte RN - 10/03/2020 0679 EDT Admission Note D - 35 y.o. female admitted from the ED for evaluation of emesis and palpitations. A+Ox3, independent in the room. VSS, RA. Lesion inferior to L 2nd toe present on admission. A - Vital signs taken. Patient oriented to unit and room. Call light and bed use reviewed. Home meds sent to pharmacy. Allowed pt time to rest. Hourly checks done for pt safety. R - Pt rested well once oriented to unit. States N and pain is better after PRN meds. Currently resting in bed, will continue to monitor. 10/03/2020 6:26 SHIRLEY MONTE RN documented in this encounter H&P Notes * Bonita See MD - 10/03/2020 0144 EDT Admission H+P Admit Date: 10/02/2020 Date of Service: 10/03/2020 PCP: Tonja Alejandro Chief Complaint: Intractable vomiting HPI: Crisyt Luo is a 35 y.o. female with a past history of T2DM, gastroparesis, migraines, s/p salpingectomy in 08/24, and frequent marijuana use presents with 5 days of intractable nausea and vomiting. Ms. Luo has frequent nausea at baseline and was recently in the ED 1 month ago with vomiting.She was subsequently diagnosed with gastroparesis via gastric emptying study and started on metoclopramide. Her symptoms began this past weekend after eating a salad. Since then, she has been unable to keep fluids or food down. Emesis is clear aside from several episodes of blood in her vomit of unknown amount (blood tinged/streaked). No one else has been sick. She denies fevers, chills. She endorses mild RLQ pain that she thinks is because shes not eating. She had diarrhea yesterday and is still passing gas. She is urinating less than usual. She has presented to the ED 2 other times this week, and her nausea responded well to IV zofran but had rapid relapse of her symptoms when she gets home. Her home medications have not helped--however, she ran out of metoclopramide over the weekend and was unable to fill the medication this week. In the ED today she received IV zofran, capsaicin cream and 1L of plasmalyte. She had a normal EKG and CT abdomen that showed a small hiatal hernia and Upon meeting. Ms Luo, she says that her nausea has improved with the medication. She says she is exhausted and feels a migraine coming on. She endorses frequent marijuana use for anxiety and smokes several times a week, last on Tuesday. She has not smoked this week since the nausea began. She endorses rare alcohol usage. Unclear if hot showers help the nausea. Of note, she had a recent amputation of her L great toe, and her boyfriend had noted a small lesionon the base of the 2nd toe. XR imaging 09/30 showed no signs of osteo with remark to seek MRI if ongoing concern. She denies pain (lack of sensation chronically). Review Of Systems: Full 10 point ROS obtained, pertinent findings noted in HPI. PMH PSH Past Medical History: Diagnosis Date [...] has a referral for therapy. ??? Diabetes ([facility]) A1c 10.3 on 11/28/2019 - poorly controlled ??? Diabetes mellitus, type 2 ([facility]) pt check blood sugars at home- X [...] ? ? Nausea & vomiting occasionally ??? Obesity, unspecified ??? Osteomyelitis ([facility]) of left great toe-s/p amputation ??? Peripheral neuropathy 3/9/21- Bilateral feet-Takes Gabapentin- pt just started this [...] toe- GA tolerated well. Social History Family History Social History Tobacco Use ??? Smoking status: Current Every Day Smoker Packs/day: 0.25 Years: 10.00 Pack years: 2.50 Types: Cigarettes Start date: 11/10/2010 Last attempt to quit: 08/07/2019 Years since quittin.1 ??? Smokeless tobacco: Never Used ??? Tobacco comment: 06/13/20 actively trying to quit about 5-8 cigs/day Substance Use Topics ??? Alcohol use: Yes Frequency: Monthly or less Drinks per session: 1 or 2 Binge frequency: Never Comment: rarely Family History Problem Relation Age of Onset ??? Cancer Maternal Grandmother Breast ??? Diabetes Paternal Grandmother ??? Diabetes Maternal Aunt ??? Diabetes Paternal Aunt ??? Diabetes Paternal Uncle Medications Medications Prior to Admission Medication Sig Dispense Refill Last Dose ??? acetaminophen (TYLENOL) 325 mg tablet Take 2 Tabs by mouth every 4 hours as needed for Pain. Past Week ??? blood glucose meter One Touch Verio Flex meter. 1 Each 0 10/02/2020 ??? blood glucose test strips One Touch Verio IQ or other brand compatible with meter and covered by patient's insurance. Testing QID. 100 Each 5 10/02/2020 ??? capsaicin (ZOSTRIX) 0.025 % topical cream Apply up to 2 times daily over abdomen, shoulders andarms as needed for abdominal pain and nausea 1 Tube 1 10/02/2020 ??? flash glucose scanning reader (FREESTYLE VIGNESH 2 READER) misc 1 Device by [facility] (non-drug; comboroute) route continuous. 1 Each 0 10/02/2020 ??? flash glucose sensor (FREESTYLE VIGNESH 2 SENSOR) kit 1 Device by [facility] (non- drug; combo route) route continuous. 6 Kit 3 10/02/2020 ??? gabapentin (NEURONTIN) 100 mg capsule Take 100 mg by mouth 2 times daily before breakfast and lunch. 10/02/2020 ??? gabapentin (NEURONTIN) 300 mg capsule Take 1 Cap by mouth 3 times daily. 90 Cap 2 10/02/2020 ??? haloperidoL (HALDOL) 5 mg tablet Take 1 Tab by mouth daily as needed for Nausea. 10 Tab 0 Unknown ??? insulin aspart U-100 (NOVOLOG FLEXPEN) 100 unit/mL (3 mL) injectable pen Inject 9 Units into the skin 3 times daily with meals. 30 mL 2 Past Week ??? insulin glargine (LANTUS SOLOSTAR) 100 unit/mL (3 mL) injection pen Inject 30 Units into the skin at bedtime for 90 days. (Patient taking differently: Inject 40 Units into the skin at bedtime. ) 27 mL 3 Past Week ??? insulin pen needles 31G x 5/16 Use 1 pen needle as directed 4 times daily. 400 Each 2 10/02/2020 ??? lancets One Touch Delica or other brand compatible with lancing device and covered by patient'sinsurance. 100 Each 5 10/02/2020 ??? LORazepam (ATIVAN) 0.5 mg tablet Take 1 Tab by mouth 3 times daily as needed for up to 14 days for Anxiety. Daily Max: 1.5 mg 30 Tab 0 Past Week ??? nicotine (NICODERM CQ) 7 mg/24 hr patch Apply one patch only daily on skin without hair. Apply to a different skin site at the same time each day. 14 Patch 0 Past Week ??? oxyCODONE (ROXICODONE) 5 mg immediate release tablet Take 1 Tab by mouth every 4 hours as needed for Pain. Daily Max: 30 mg (Patient not taking: Reported on 08/27/2020) 5 Tab 0 ??? SITagliptin (JANUVIA) 50 mg tablet Take 1 Tab by mouth daily. 90 Tab 3 10/02/2020 ??? TENS unit and electrodes combo pack 1 Each by misc (non-drug; combo route) route daily. 1 Each 0 Past Week Allergies Allergies Allergen Reactions ??? Citalopram Other (See Comments) suicidal ideation, approx 2012 ??? Other - See Comments Swelling of throat pomergrante ??? Advil [Ibuprofen] Hives Objective/Physical Exam: VS: Temp: [36.8 ??C (98.2 ??F)-36.8 ??C (98.3 ??F)] Heart Rate: [70 BPM-90 BPM] Resp: [18] BP: (136-145)/(85-92) SpO2: [96 %-98 %] Physical exam: General: No acute distress, comfortable, answering questions appropriately HEENT: Head atraumatic and normocephalic. EOMI. Moist mucous membranes. Sclera/conjunctiva and oropharynx clear. Neck: Supple. Trachea midline. CV: RRR; Normal S1 and S2, No murmurs, rubs or gallops appreciated. Respiratory: CTAB, No crackles or wheezing Abdomen: Soft, quiet BS, mild tenderness in RLQ with no rebound/guarding, no masses, no distension. Extremities: Pulses 2+ bilaterally, no LE edema. Neuro: Alert and oriented x 3. CN and strength grossly intact with no focal deficit. Psych: Appropriate mood and affect. Skin: No rashes, lesions, or excoriations. Left second toe cracked open on the plantar surface without erythema or drainage Data Review: Labs: CBC: Recent Labs 09/30/20 0740 10/01/20 1151 10/02/20 1910 WBC 15.61* 14.04* 13.29* RBC 4.40 4.42 4.09 HGB 13.7 14.1 12.7 HCT 38.6 38.2 36.1 MCV 88 86 88 MCH 31.1 31.9 31.1 MCHC 35.5 36.9* 35.2 PLT 391* 380* 355 NEUTROABS 13.61* 9.97* 7.62 BMP: Recent Labs 09/30/20 0845 10/01/20 1151 10/02/201909 NA 144 139 138 132* K 4.0 3.5 3.5 3.4* CL 104 97 98 95* CO2 24 23 27 30 BUN 16 13 13 6* CREATININE 0.43* 0.50* 0.52 0.45* CALCIUM -- 9.6 9.4 -- CALCCA -- 9.5 9.3 -- MG 1.6* -- 1.8 LABALBU -- 4.1 -- LFT: Recent Labs 09/30/20 0845 10/01/20 1151 TBIL -- 0.5 ALKPHOS -- 86 AST -- 31 ALT -- 24 LIPASE 108 174 Cardiac Markers: Recent Labs 09/30/20 0855 10/02/201909 TROPONINI <0.034 <0.034 negative HCG Other Studies: CT abdomen w IMPRESSION 1. No acute inflammatory process identified in the abdomen and pelvis. 2. Nonobstructing left renal calculus. 3. Small hiatal hernia. EKG NSR QTc <450 Assessment/Plan: Cristy Luo is a 35 y.o. female with a past history of T2DM, gastroparesis, migraines, s/p salpingectomy in 08/24, and frequent marijuana use presents with 5 days of intractable nausea and vomiting for 1 week. In the ED, she was found to have a leukocytosis but has remained afebrile and had normal CT imaging. Her symptoms are likely due to under-treatment of her gastroparesis as she was unable to fill her rx this week. Ddx includes cannabinoid hyperemesis syndrome as she has frequent marijuana use and responded well to the capsaicin cream. She is having bowel movements and passing gas, thus bowel obstruction unlikely. Her nausea is currently resolved s/p IV zofran and fluids. She will be admitted to the medicine service and treated with antiemetics, fluid and electrolyte repletion and will likely discharge home tomorrow is she is medically stable. Nausea/vomiting - s/p 1 L bolus - IV zofran q4 PRN - metoclopramide 10 mg with meals needs prescription/refill - KCl and Mg repletion -counseling on cannabinoid usage and hyperemesis did not tolerate capsaicin with burning IDDM2 c/b neuropathy - SSI - restart POOL FINISHER lantis 42 U and aspart 9 U TID once resumes eating (hold and use SSI until see trend considering glucose values overnight and recurrent N/V after arrival to floor) - held sitagliptin Counseled on monitoring left second digit Back pain - POOL FINISHER gabapentin Anxiety - POOL FINISHER lorazepam Diet: Consistent carb diet VTE Prophylaxis: lovenox Consults: none CODE STATUS: Full Prognosis/Disposition: likely discharge home tomorrow is she is medically stable. Admission Status Inpatient. Anticipated duration of hospitalization is greater than two midnights due to intractablevomiting. Keerthi Alejandro, MS 4 Acting [employer] 10/03/2020 1:45 Cortex; Pager #[phone] Attending Attestation Date of service: 10/03/20 I was present with the medical student for the history, exam, and medical decision making documented. I have personally performed my own physical exam and medical decision making. I have verified andagree with (or have edited in blue) the medical student's documentation. Bonita See MD 10/03/2020 5:10 Hospitalist documented in this encounter ED Notes * Levi Jasso MA - 10/02/2020 1914 EDT Blood drawn via saline lock per protocol, blue, green and purple tube(s) sent to lab per order. * Beverly Marvin MD - 10/02/2020 1854 EDT This patient received an evaluation and medical screening exam for emergent medical conditions at the [facility] on 10/02/2020 This note was created and authored by Beverly Marvin MD working under the supervision of Jonas Ambrosio MD. This documentation is recorded by Lynn Mancuso acting as Scribe under the direction and presence of Jonas Ambrosio MD and Beverly Marvin MD. Jonas Ambrosio MD and Beverly Marvin MD: We personally performed the services recorded by the scribe in our presence. We confirm the scribe's documentation has been reviewed by us to accurately and completely record our work, treatment, procedures, and medical decision making. ED Attending's Supervisory Statement I, Jonas Ambrosio MD, performed a history and exam of this patient and discussed the case with the resident. I have reviewed and edited this note, and the documentation is consistent with my findings, assessment and plan. I fully participated in the medical decision making. HPI Cristy Luo is a 35 y.o. female with a history significant for T2DM, migraine, anxiety, and depression who presents to the ED via EMS for evaluation of emesis and palpitations. She states that she has had frequent episodes of emesis starting three days ago. She reports that her last meal was four evenings ago and that she has not been able to tolerate PO intake since. She states that she developed mild hematemesis and has had more than 16 episodes in the past 24 hours. She endorses associated intermittent nausea, dry heaving, mild abdominal pain, one episode of diarrhea, upper extremityweakness, palpitations (worse when changing positions), and anxiety. She reports that she has been evaluated in the ED twice so far this week. She states that her nausea has improved after receiving Zofran en route. She reports that she has urinated twice since her ED visit yesterday. She denies any personal known history of liver disease. SH: The patient reports that she does not drink alcohol. She states that she typically smokes 1-2 hits of marijuana per day but has not smoked in one week. History was provided by: the patient, EMS, and medical records Patient's pertinent PMH, FH, SH were reviewed and updated PRN. ROS ROS A 10-point review of systems was performed. The patient answered negative to all questions with theexceptions of those explicitly detailed as positives in the HPI. Pertinent negatives are also explicitly stated. Physical Exam Vital Signs Temp: 36.8 ??C (98.2 ??F) Temp src: Oral Heart Rate: 90 BPM Resp: 18 SpO2: 96 % BP: (!) 145/92 BP MAP: 105 mm Hg BP Device: BP Machine BP Patient Position: Sitting BP Cuff Location: Right arm Nursing notes and vital signs were reviewed. Constitutional: Uncomfortable appearing NAD HEENT: Clear conjunctivae. Conjugate gaze. Mouth: Dry oral mucosa without apparent lesions Neck: Full ROM. Trachea midline Heart: RRR. No MRG. 2+ symmetric radial pulses. Extremities well perfused Lungs: No evidence of respiratory distress. CTAB. Symmetric chest rise. Abdomen: Positive bowel sounds, soft, right lower quadrant tenderness to palpation, positive Rovsing sign Skin: Warm and dry. No overt rashes or lesions on exposed skin Extremities: Moving spontaneously, warm Neuro: CN grossly intact, normal speech. Psych: AAOx3. Appropriate mood and affect. Medical Decision Making Cristy Luo is a 35 y.o. female with history significant for T2DM, migraine, anxiety, and depression who presents to the ED for vomiting. Differential diagnosis includes but is not limited to: Gastroparesis, hyperemesis syndrome, ACS, toxic ingestion, bowel obstruction. Patient was recently admitted in early August for similar presentation and was subsequently identified with gastroparesis. She is presented to the ED multiple times in the past several days for intractable vomiting. In my discussion with her and her she is unable to tolerate any oral intake.Patient was hemodynamically stable here in the emergency department and we were unable to get control of her vomiting with standard therapeutics. She was administered IV fluids for volume resuscitation. The medicine service was consulted and accepted the patient for admission. Procedures Procedures ED Course A medical screening was performed. An EKG was obtained and independently interpreted: Sinus, 92, intervals within normal limits with no signs of ischemia no ST elevations or depressions. Imaging obtained was reviewed and independently interpreted: CT abdomen and pelvis: No acute pathology in the abdomen and pelvis, nonobstructing left renal calculus, small hiatal hernia Laboratory results independently reviewed, significant for: Lactate 1.2, sodium 132, chloride 95 bicarb of 30, white count 13.29 Clinical Impression Final diagnoses: Intractable vomiting Disposition Condition at departure from the Emergency Department: [...] as expected, or other new concerns arise. documented in this encounter Miscellaneous Notes * Plan of Care - Carie Cook RN - 10/03/2020 1237 EDT Nursing Discharge Note D: Patient noted with discharge orders to home. A: Prescriptions faxed to pharmacy. Reviewed discharge instructions and prescriptions with Patient IV d/c'd. Belongings collected and sent home with patient. R: Patient verbalized understanding of discharge instructions and denied further questions. CARIE COOK RN 10/03/2020 12:37 * Diabetes Education - Vicki Phan RN - 10/03/2020 1114 EDT Diabetes Nurse Clinician Note: Current A1C 9.7 07/27 SMBG: has a freestyle Vignesh has had for 5 weeks. Medications: Novolog SSI Lantus: 42 units Q Pm Andie Chandra Diabetes Provider: Mary Miller Dr Assessment/Education/Recommendations: Stella tells me that she is really liking her Vignesh sensor has alittle trouble sometimes with adherence to skin. Is unable to get it to stick to left arm. Encouraged her to reach out on next appointment at [facility] for suggestions. She does hold for 10-15 seconds. Reports her sugars have been good prior to recent last two weeks they have been off the wall. >300's. Reports injecting in her arms and rotates. Reviewed sick day management with Stella reinforcingimportance of checking BG more often when having vomiting diarrhea hydration and taking her medications and when to call when her BG are out of range and she is unable to get them down. Sick Day Management Handout Review: ??? Why worry about sick days? High blood sugars may occur when you???re sick or stressed ??? Examples of a sick day - Illness - Infection - Surgery - Injury - Major emotional stress ??? Sick Day Plan - Take your diabetes medication - Check your blood sugar before meals and bedtime - If you have T1DM, check urine ketones when blood sugar is 250 or higher ??? If you can eat your meals: Every 1-2 hours drink 6-8 ounces of fluids ( sugar and caffeine free) ??? If you are unable to eat your usual meal plan: Replace the carbohydrates in your meal plan by eating small amounts of the list of items provided on the handout. (15 grams of carbohydrate) ??? REST! ??? When to call your health provider ??? BG goals Has next appointment with her endo in November. Vicki CLARKE wall steamer Nurse Clinician #[id number] documented in this encounter Plan of Treatment Upcoming Encounters Date Type Department Care Team (Late st Contact Info) Description 02/21/2024 9:45 EDT Office Visit [facility] Adult Primary Care - [address] [phone] Carrington Calderon MD [address] [place] [address] [phone] 02/27/2024 8:30 EDT Telemedicine [facility] Sleep Program - [address] [id number] Rn, Sleep 02/29/2024 10:30 EDT Appointment [facility] Radiology Nuclear Medicine and PET [address] [id number] 02/29/2024 14:30 EDT Appointment [facility] Radiology Nuclear Medicine and PET [address] [id number] 03/01/2024 8:00 EDT Appointment [facility] Radiology Nuclear Medicine and PET [address] [id number] 03/01/2024 9:30 EDT Appointment [facility] Radiology Nuclear Medicine and PET [address] [phone] documented as of this encounter Procedures Procedure Name Priority Date/Time Associated Diagnosis Comments ECG REPORT - SCANNED 10/27/2020 16:38 EDT COMPLETE BLOOD COUNT Routine 10/03/2020 7:15 EDT BUN Routine 10/03/2020 7:15 EDT CREATININE Routine 10/03/2020 7:15 EDT ELECTROLYTES Routine 10/03/2020 7:15 EDT POCT GLUCOSE, INTERFACED Routine 10/03/2020 6:02 EDT ZZCOVID-19 TEST [facility] PCR Today 10/02/2020 22:44 EDT COVID-19 TESTING Routine 10/02/2020 22:[address] ABDOMEN PELVIS W CONTRAST STAT 10/02/2020 20:45 EDT QUANT BETA HCG, STAT 10/02/2020 19:51 EDT HOLD BLUE TOP STAT 10/02/2020 19:10 EDT SCREENING GLUCOSE STAT 10/02/2020 19: 10 EDT TROPONIN I STAT 10/02/2020 19:10 EDT LACTIC ACID STAT 10/02/2020 19:10 EDT COMPLETE BLOOD COUNT AND DIFFERENTIAL STAT 10/02/2020 19:10 EDT BUN STAT 10/02/2020 19:10 EDT MAGNESIUM STAT 10/02/2020 19:10 EDT CREATININE STAT 10/02/2020 19:10 EDT ELECTROLYTES STAT 10/02/2020 19:10 EDT EKG 12-LEAD STAT 10/02/2020 19:04 EDT LIPASE Add-On 10/01/2020 11:51 EDT COMPREHENSIVE METABOLIC PANEL (CMP) STAT Add-on 10/01/2020 11:51 EDT documented in this encounter Results * ECG REPORT - SCANNED (10/27/2020 16:38 EDT) 10/27/2020 16:3 8 EDT Scan 2 Crematorium Operator PROCEDURE/MINOR BRAULIO GICAL ORDERABLES * (ABNORMAL) COMPLETE BLOOD COUNT (10/03/2020 7:15 EDT) WBC 12.78(H) 4.00 - 12.40 K/cmm 10/03/2020 8:32 [facility] RBC 4.06 3.86 - 5.04 M/cmm 10/03/2020 8:32 [facility] Hemoglobin 13.1 11.6 - 15.2 gm/dL 10/03/2020 8:32 [facility] HCT 35.2 34.9 - 44.4 % 10/03/2020 8:32 [facility] MCV 87 81 - 98 fl 10/03/2020 8:32 [facility] MCH 32.3 26.7 - 33.3 pg 10/03/2020 8:32 [facility] MCHC 37.2(H) 32.1 - 35.9 gm/dL 10/03/2020 8:32 [facility] RDW-CV 12.2 <14.7 % 10/03/2020 8:32 [facility] RDW-SD 38.9 <50.4 fl 10/03/2020 8:32 [facility] PLT 372 141 - 377 K/cmm 10/03/2020 8:32 [facility] MPV 9.4(L) 9.5 - 12.7 fl 10/03/2020 8:32 [facility] Blood VENOUS BLOOD / Unknown Venipuncture / Unknown 10/03/2020 7:15 EDT 10/03/2020 8:21 EDT Bonita See MD HEMATOLOGY & PF4 ORD ERABLES [facility] [address] [place] [address] * (ABNORMAL) BUN (10/03/2020 7:15 EDT) BUN 6(L) 10 - 26 mg/dL 10/03/2020 9:[address] [facility] Blood VENOUS BLOOD / Unknown Venipuncture / Unknown 10/03/2020 7:15 EDT 10/03/2020 8:23 EDT Bonita See MD CHEMISTRY & BLOOD GA S ORDERABLES Performing Organization Address [facility] de Phone Number [facility] [address] [place] [address] * (ABNORMAL) CREATININE (10/03/2020 7:15 EDT) Creatinine 0.43(L) 0.52 - 1.04 mg/dL 10/03/2020 9:[address] [facility] eGFR 132 >60 mL/min/1.7 3m2 10/03/2020 9:[address] [facility] Comment:eGFR calculated gil curtis CKD-EPI equation for non- Americans. Multiply eGFR by 1.16 for patients. Blood VENOUS BLOOD / Unknown Venipuncture / Unknown 10/03/2020 7:15 EDT 10/03/2020 8:23 EDT Bonita See MD CHEMISTRY & BLOOD GA S ORDERABLES Performing Organization Address [facility] Co de Phone Number [facility] [address] [place] [address] * (ABNORMAL) ELECTROLYTES (10/03/2020 7:15 EDT) Sodium 135(L) 136 - 145 mEq/L 10/03/2020 9:[address] [facility] Potassium 3.7 3.5 - 5.0 mEq/L 10/03/2020 9:[address] [facility] Chloride 98 96 - 110 mEq/L 10/03/2020 9:[address] [facility] CO2 Total 23 22 - 32 mEq/L 10/03/2020 9:[address] [facility] Blood VENOUS BLOOD / Unknown Venipuncture / Unknown 10/03/2020 7:15 EDT 10/03/2020 8:23 EDT Bonita See MD CHEMISTRY & BLOOD GA S ORDERABLES Performing Organization Address [facility] Co de Phone Number [facility] [address] [place] [address] * (ABNORMAL) POCT GLUCOSE, INTERFACED (10/03/2020 6:02 EDT) Glucose, POC 177(H) 70 - 100 mg/dL 10/03/2020 6:[address] [facility] doll eye setter ID [id number] 10/03/2020 6:[address] [facility] HN LAB POC COMMENT (GLUCOSE) Test Performed by Nursing Services 10/03/2020 6:[address] [facility] Blood CAPILLARY BLOOD / Unknown 10/03/2020 6:02 EDT 10/03/2020 6:08 EDT Bonita See MD POINT OF CARE TEST O RDERABLES Performing Organization Address City/[facility] Co de Phone Number [facility] [address] [place] [address] * COVID-19 TEST [facility] PCR (10/02/2020 22:44 EDT) Swab ENTIRE NASOPHARYNX / Unknown Swab / Unknown 10/02/2020 22:44 EDT 10/02/2020 22:46 EDT Beverly Marvin MD MICROBIOL OGY - GENERAL ORDERABLES Performing Organization Address City/[facility]/ZIP Co de Phone Number [facility] [address] [place] [address] * COVID-19 TESTING (10/02/2020 22:44 EDT) COVID-19 rt-PCR Result Negative Negative 10/03/2020 1:[address] [facility] Comment: This test has not been FDA cleared or approved. This test has been authorized by FDA under an EUA for use by authorized laboratories. This test has been authorized only for detection of nucleic acid from 2019-nCoV, not for any other viruses or pathogens. This test is only authorized for the duration of the declaration that circumstances exist justifying the authorization of emergency use of in vitro diagnostic tests for detection and/or diagnosis of 2019-nCoV under section 564(b)(1) of Act, 21 U.S.C ?? 360bbb-3(b) (1), unless the authorization is terminated or revoked sooner. Negative results do not preclude 2019-nCoV infection and should not be used as the sole basis for treatment or other patient management decisions. Negative results must be combined with clinical observations, patient history, and epidemiological information. Performed on the [employer] [place] Fusion instrument Performing Lab [place] [facility] 10/03/2020 1:[address] [facility] Swab ENTIRE NASOPHARYNX / Unknown Swab / Unknown 10/02/2020 22:44 EDT 10/02/2020 22:46 EDT Beverly Marvin MD MICROBIOL OGY - GENERAL ORDERABLES [facility] [address] [place] [address] * CT ABDOMEN PELVIS W CONTRAST (10/02/2020 20:45 EDT) Anatomical Region Laterality Modality Body, Abdomen, Pelvis, Abdomen and Pelvis Computed Tomography 10/03/2020 9:27 EDT Impressions 10/03/2020 9:27 EDT 1. No acute inflammatory process identified in the abdomen and pelvis. 2. Nonobstructing left renal calculus, unchanged. I have personally reviewed the images and the above interpretation and agree with the findings. Narrative 10/03/2020 9:[address] ABDOMEN PELVIS W CONTRAST ??10/02/2020 8:35 PM Signs and Symptoms/Comments: ?? Abdominal pain, RLQ Technique: CT of the abdomen and pelvis was performed following the administration intravenous contrast; coronal and sagittal multiplanar reconstructions generated. Comparison: CT abdomen and pelvis 08/06/2020 Findings: Lower chest: The lung bases are clear. Hepatobiliary: No focal hepatic lesion is identified. The gallbladder is unremarkable. There is no intra or extrahepatic biliary ductal dilatation. Spleen, pancreas, adrenal glands: The spleen, adrenal glands, and pancreas are unremarkable. There is no pancreatic ductal dilatation. Kidneys, ureters, bladder: The kidneys enhance symmetrically without focal renal lesion. A 4 mm nonobstructing left lower pole (axial 142) is unchanged. The ureters and urinary bladder are unremarkable. Uterus, ovaries: The uterus is normal for age. No suspicious adnexal lesion is identified. Bowel: There is no evidence of acute inflammation or obstruction. The appendix is normal. Peritoneal cavity / Subperitoneal space: No free air or free fluid. Lymphovascular: No lymphadenopathy is appreciated. The abdominal aorta is normal in course and caliber. Abdominal wall: No bowel containing hernia. Musculoskeletal: No acute fracture or suspicious osseous lesion. Multilevel discogenic endplate changes. Automatic Splicing Machine Operator: No additional findings. Procedure Note Wilian Wellington MD - 10/03/2020 CT ABDOMEN PELVIS W CONTRAST 10/02/2020 8:35 PM Signs and Symptoms/Comments: Abdominal pain, RLQ Technique: CT of the abdomen and pelvis was performed following the administrationintravenous contrast; coronal and sagittal multiplanar reconstructionsgenerated. Comparison: CT abdomen and pelvis 08/06/2020 Findings: Lower chest: The lung bases are clear. Hepatobiliary: No focal hepatic lesion is identified. The gallbladder isunremarkable. There is no intra or extrahepatic biliary ductaldilatation. Spleen, pancreas, adrenal glands: The spleen, adrenal glands, and pancreasare unremarkable. There is no pancreatic ductal dilatation. Kidneys, ureters, bladder: The kidneys enhance symmetrically without focalrenal lesion. A 4 mm nonobstructing left lower pole (axial 142) isunchanged. The ureters and urinary bladder are unremarkable. Uterus, ovaries: The uterus is normal for age. No suspicious adnexallesion is identified. Bowel: There is no evidence of acute inflammation or obstruction. Theappendix is normal. Peritoneal cavity / Subperitoneal space: No free air or free fluid. Lymphovascular: No lymphadenopathy is appreciated. The abdominal aorta isnormal in course and caliber. Abdominal wall: No bowel containing hernia. Musculoskeletal: No acute fracture or suspicious osseous lesion.Multilevel discogenic endplate changes. Automatic Splicing Machine Operator: No additional findings. IMPRESSION 1. No acute inflammatory process identified in the abdomen and pelvis. 2. Nonobstructing left renal calculus, unchanged. I have personally reviewed the images and the above interpretation andagree with the findings. Beverly Marvin MD IMG CT OR DERABLES * QUANT BETA HCG, (10/02/2020 19:51 EDT) Beta HCG Quant, <5 <5 mIU/ml 10/02/2020 20:[address] [facility] Comment: NOTE: : Negative: Less than 5mIU/mL Indeterminant: Between 5 and 25 mIU/mL, recommend repeat testing in 48 hours Positive: Greater than 25 mIU/mL The results of this assay can be falsely lowered due to the consumption of Biotin. Blood VENOUS BLOOD / Unknown Venipuncture / Unknown 10/02/2020 19:51 EDT 10/02/2020 19:54 EDT Beverly Marvin MD CHEMISTRY & BLOOD GAS ORDERABLES [facility] [address] [place] [address] * LACTIC ACID (10/02/2020 19:10 EDT) Lactic Acid 1.2 <=2.0 mmol/L 10/02/2020 19:[address] [facility] Blood VENOUS BLOOD / Unknown Venipuncture / Unknown 10/02/2020 19:10 EDT 10/02/2020 19:16 EDT Beverly Marvin MD CHEMISTRY & BLOOD GAS ORDERABLES [facility] [address] [place] [address] * HOLD BLUE TOP (10/02/2020 19:10 EDT) Hold Hold 10/02/2020 20:[address] [facility] Blood VENOUS BLOOD / Unknown Venipuncture / Unknown 10/02/2020 19:10 EDT 10/02/2020 19:15 EDT Jonas Ambrosio MD LAB INFO SERVICE AND SUPPORT & PHONE RESULT Performing Organization Address [facility] Co de Phone Number [facility] [address] [place] [address] * (ABNORMAL) SCREENING GLUCOSE (10/02/2020 19:10 EDT) Glucose, Screening 189(H) 70 - 100 mg/dL 10/02/2020 19:[address] [facility] Comment:Elevated screening g lucose value greater than 180 mg/dl, please order follow up Hemoglobin A1C. Blood VENOUS BLOOD / Unknown Venipuncture / Unknown 10/02/2020 19:10 EDT 10/02/2020 19:16 EDT Jonas Ambrosio MD CHEMISTRY & BLOOD GA S ORDERABLES Performing Organization Address City/[facility]/ZIP Co de Phone Number [facility] [address] [place] [address] * MAGNESIUM (10/02/2020 19:10 EDT) Magnesium 1.8 1.7 - 2.8 mg/dL 10/02/2020 19:[address] [facility] Blood VENOUS BLOOD / Unknown Venipuncture / Unknown 10/02/2020 19:10 EDT 10/02/2020 19:16 EDT Jonas Ambrosio MD CHEMISTRY & BLOOD GA S ORDERABLES Performing Organization Address City/[facility]/ZIP Co de Phone Number [facility] [address] [place] [address] * TROPONIN I (10/02/2020 19:10 EDT) [facility] Troponin I (ng/mL) <0.034 <0.034 ng/mL 10/02/2020 19:[address] [facility] Blood VENOUS BLOOD / Unknown Venipuncture / Unknown 10/02/2020 19:10 EDT 10/02/2020 19:[address] [facility] - 10/02/2020 19:40 EDT The results of this assay can be falsely lowered due to the consumption of Biotin. Jonas Ambrosio MD CHEMISTRY & BLOOD GA S ORDERABLES Performing Organization Address [facility] de Phone Number [facility] [address] [place] [address] * (ABNORMAL) ELECTROLYTES (10/02/2020 19:10 EDT) [facility] Sodium 132(L) 136 - 145 mEq/L 10/02/2020 19:[address] [facility] Potassium 3.4(L) 3.5 - 5.0 mEq/L 10/02/2020 19:[address] [facility] Chloride 95(L) 96 - 110 mEq/L 10/02/2020 19:[address] [facility] CO2 Total 30 22 - 32 mEq/L 10/02/2020 19:[address] [facility] Blood VENOUS BLOOD / Unknown Venipuncture / Unknown 10/02/2020 19:10 EDT 10/02/2020 19:16 EDT Jonas Ambrosio MD CHEMISTRY & BLOOD GA S ORDERABLES Performing Organization Address [facility]/ZIP Co de Phone Number [facility] [address] [place] [address] * (ABNORMAL) CREATININE (10/02/2020 19:10 EDT) Creatinine 0.45(L) 0.52 - 1.04 mg/dL 10/02/2020 19:[address] [facility] eGFR 130 >60 mL/min/1.7 3m2 10/02/2020 19:[address] [facility] Comment:eGFR calculated gil curtis CKD-EPI equation for non- Americans. Multiply eGFR by 1.16 for patients. Blood VENOUS BLOOD / Unknown Venipuncture / Unknown 10/02/2020 19:10 EDT 10/02/2020 19:16 EDT Jonas Ambrosio MD CHEMISTRY & BLOOD GA S ORDERABLES Performing Organization Address City/[facility]/ZIP Co de Phone Number [facility] [address] [place] [address] * (ABNORMAL) BUN (10/02/2020 19:10 EDT) Pathologist [facility] BUN 6(L) 10 - 26 mg/dL 10/02/2020 19:[address] [facility] Blood VENOUS BLOOD / Unknown Venipuncture / Unknown 10/02/2020 19:10 EDT 10/02/2020 19:16 EDT Jonas Ambrosio MD CHEMISTRY & BLOOD GA S ORDERABLES Performing Organization Address City/[facility]/ZIP Co de Phone Number [facility] [address] [place] [address] * (ABNORMAL) COMPLETE BLOOD COUNT AND DIFFERENTIAL (10/02/2020 19:10 EDT) Pathologist [facility] WBC 13.29(H) 4.00 - 12.40 K/cmm 10/02/2020 19:[address] [facility] RBC 4.09 3.86 - 5.04 M/cmm 10/02/2020 19:32 [facility] Hemoglobin 12.7 11.6 - 15.2 gm/dL 10/02/2020 19:[address] [facility] HCT 36.1 34.9 - 44.4 % 10/02/2020 19:[address] [facility] MCV 88 81 - 98 fl 10/02/2020 19:32 [facility] MCH 31.1 26.7 - 33.3 pg 10/02/2020 19:32 [facility] MCHC 35.2 32.1 - 35.9 gm/dL 10/02/2020 19:32 [facility] RDW-CV 12.3 <14.7 % 10/02/2020 19:32 [facility] RDW-SD 39.6 <50.4 fl 10/02/2020 19:32 [facility] PLT 355 141 - 377 K/cmm 10/02/2020 19:32 [facility] MPV 9.2(L) 9.5 - 12.7 fl 10/02/2020 19:32 [facility] % Neutrophils 57.2 % 10/02/2020 19:32 [facility] % Lymphocytes 32.1 % 10/02/2020 19:32 [facility] % Monocytes 9.0 % 10/02/2020 19:32 [facility] % Eosinophils 0.8 % 10/02/2020 19:32 [facility] % Basophils 0.5 % 10/02/2020 19:32 [facility] % Immature Grans 0.4 % 10/03/19 19:32 [facility] Absolute Neutrophils 7.62 2.20 - 8.85 K/cmm 10/02/2020 19:32 [facility] Absolute Lymphocytes 4.27(H) 1.09 - 3.30 K/cmm 10/02/2020 19:32 [facility] Absolute Monocytes 1.19(H) 0.10 - 0.80 K/cmm 10/02/2020 19:32 [facility] Absolute Eosinophils 0.10 0.03 - 0.61 K/cmm 10/02/2020 19:32 [facility] ABS Basophils 0.06 0.01 - 0.11 K/cmm 10/02/2020 19:[address] [facility] Absolute Immature Grans 0.05 0.00 - 0.06 K/cmm 10/02/2020 19:[address] [facility] Type of Differential: Auto 10/02/2020 19:[address] [facility] Blood VENOUS BLOOD / Unknown Venipuncture / Unknown 10/02/2020 19:10 EDT 10/02/2020 19:15 EDT Jonas Ambrosio MD PACKAGES & DNA PROBE ORDERABLES [facility] [address] [place] [address] * EKG 12-LEAD (10/02/2020 19:04 EDT) 10/02/2020 19:[address] [facility] - 10/27/2020 16:30 EDT ?[facility] Emergency ? Test Date: ?2020-10-02 Pat Name: ? CRISTY LUO ?Department: ?? ED ? Room: ? AC06 Gender: ? Female ? Safety Sealer: ?? [id number] : ?1985 ? Requested By: BO Santizo Order Number: [id number] ? Reading MD: ?? CINDY SNYDER MD ? Measurements Intervals ?[place] ? Rate: ? 92 ? P: ?59 WV: ? 155 ?QRS: ?10 QRSD: ? 91 ? T: ?0 QT: ? 356 ? QTc: ?442 ? Interpretive Statements SINUS RHYTHM Compared to ECG 10/02/2020 19:04:21 No significant changes I reviewed the tracing and have either agreed or edited the findings in this report. Electronically Signed On 10-27-2020 16:30:39 EDT by CINDY SNYDER MD. Procedure Note Cindy Snyder Jr., MD - 10/27/2020 [facility] Emergency Test Date: 2020-10-02 Pat Name: CRISTY LUO Department: ED Room: [facility] Gender: Female Safety Sealer: [id number] : 1985 Requested By: BO Santizo Order Number: [id number] Reading MD: CINDY SNYDER MD Measurements Intervals [place] Rate: 92 P: 59 WV: 155 QRS: 10 QRSD: 91 T: 0 QT: 356 QTc: 442 Interpretive Statements SINUS RHYTHM Compared to ECG 10/02/2020 19:04:21 No significant changes I reviewed the tracing and have either agreed or edited the findings inthis report. Electronically Signed On 10-27-2020 16:30:39 EDT by CINDY SANDOVAL. Jonas Ambrosio MD CARDIAC ECG ORDERABL ES [facility] EKG * (ABNORMAL) COMPREHENSIVE METABOLIC PANEL (CMP) (10/01/2020 11:51 EDT) Sodium 139 136 - 145 mEq/L 10/02/2020 19:47 [facility] Potassium 3.5 3.5 - 5.0 mEq/L 10/02/2020 19:47 [facility] Comment: NOTE: Interpret with caution. Prolonged sample storage may alter the result. Chloride 97 96 - 110 mEq/L 10/02/2020 19:47 [facility] CO2 Total 23 22 - 32 mEq/L 10/02/2020 19:47 [facility] Comment: NOTE: Interpret with caution. Prolonged sample storage may alter the result. Glucose 221(H) 70 - 100 mg/dL 10/02/2020 19:47 [facility] BUN 13 10 - 26 mg/dL 10/02/2020 19:47 [facility] Creatinine 0.50(L) 0.52 - 1.04 mg/dL 10/02/2020 19:47 [facility] eGFR 126 >60 mL/min/1.7 3m2 10/02/2020 19:47 [facility] Comment:eGFR calculated gil curtis CKD-EPI equation for non- Americans. Multiply eGFR by 1.16 for patients. Total Protein 6.6 6.3 - 8.2 g/dL 10/02/2020 19:47 [facility] Albumin 4.1 3.4 - 4.9 g/dL 10/02/2020 19:47 [facility] Alkaline Phosphatase 86 38 - 126 U/L 10/02/2020 19:47 [facility] AST 31 15 - 46 U/L 10/02/2020 19:47 [facility] ALT 24 <35 U/L 10/02/2020 19:47 [facility] Bilirubin, Total 0.5 <1.4 mg/dL 10/03/19 19:47 [facility] Calcium 9.6 8.5 - 10.5 mg/dL 10/02/2020 19:47 [facility] Calculated Calcium 9.5 8.5 - 10.5 mg/dL 10/02/2020 19:47 [facility] Blood VENOUS BLOOD / Unknown Venipuncture / Unknown 10/01/2020 11:51 EDT 10/01/2020 11:57 EDT Beverly Marvin MD CHEMISTRY & BLOOD GAS ORDERABLES Performing Organization Address City/[facility] [facility] Co de Phone Number [facility] [address] [place] [address] * LIPASE (10/01/2020 11:51 EDT) Lipase 174 <251 U/L 10/02/2020 19:[address] [facility] Blood VENOUS BLOOD / Unknown Venipuncture / Unknown 10/01/2020 11:51 EDT 10/01/2020 11:57 EDT Beverly Marvin MD CHEMISTRY & BLOOD GAS ORDERABLES Performing Organization Address City/[facility] Co de Phone Number 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 ([facility]) Vomiting Vomiting alone documented in this encounter Admitting Diagnoses Diagnosis Vomiting Vomiting alone documented in this encounter Administered Medications Inactive Administered Medications - up to 3 most recent administrations Medication Order MAR Action Action Date Dose Rate Site capsaicin (CAPZASIN-HP) 0.1 % cream 1 application 1 application, topical, NOW X1, 1 dose, On Tue10/02/20 at 2145 Given 10/02/2020 21:51 EDT 1 application dextrose 50 % solution 12.5 g 12.5 g (25 mL), intravenous, PRN, Starting on Tue10/03/20 at 0348, Until Tue10/03/20 at 1503, Low Blood Sugar, Routine electrolyte-A (PLASMALYTE-A) bolus 1,000 mL 1,000 mL, intravenous, NOW X1, 1 dose, On Tue10/02/20 at 1915 New Bag 10/02/2020 19:18 EDT 1,000 mL gabapentin (NEURONTIN) capsule 100 mg 100 mg, oral, 2 TIMES DAILY BEFORE BREAKFAST & LUNCH, First dose on Tue10/03/20 at 0700, Until Discontinued, Routine Given 10/03/2020 12:00 EDT 100 mg Given 10/03/2020 6:00 EDT 100 mg glucagon injection 1 mg 1 mg, intramuscular, PRN, Starting on Tue10/03/20 at 0348, Until Tue10/03/20 at 1503, Other, Low blood sugar, Routine insulin aspart U-100 (NOVOLOG FLEXPEN) injection subcutaneous, EVERY 6 HOURS, First dose on Tue10/03/20 at 0600, Until Discontinued, Routine, Indications: SUPPLEMENTAL INSULIN Given 10/03/2020 7:05 EDT 2 Units iohexoL (OMNIPAQUE 350) solution 100 mL 100 mL, intravenous, Once in imaging, 1 dose, Starting on Tue10/02/20 at 2034, Until Tue10/02/20 at 204, Routine, Imaging Protocol Orders Given 10/02/2020 20:47 EDT 95 mL LORazepam (ATIVAN) injection 0.5 mg 0.5 mg, intravenous, NOW X1, 1 dose, On Tue10/03/20 at 0530, Routine Given 10/03/2020 5:33 EDT 0.5 mg LORazepam (ATIVAN) tablet 0.5 mg 0.5 mg, oral, 3 TIMES DAILY PRN, Starting on Tue10/03/20 at 0018, Until Tue10/03/20 at 1503, Anxiety, Routine Given 10/03/2020 4:06 EDT 0.5 mg metoclopramide HCl (REGLAN) tablet 10 mg 10 mg, oral, 3 TIMES DAILY BEFORE MEALS, First dose on Tue10/03/20 at 0700, Until Discontinued, Routine Given 10/03/2020 12:00 EDT 10 mg Given 10/03/2020 6:01 EDT 10 mg ondansetron (PF) (ZOFRAN) injection 4 mg 4 mg, intravenous, NOW X1, 1 dose, On Tue10/02/20 at 2130, STAT Given 10/02/2020 21:23 EDT 4 mg ondansetron (PF) (ZOFRAN) injection 4 mg 4 mg, intravenous, EVERY 4 HOURS PRN, Starting on Tue10/03/20 at 0018, Until Tue10/03/20 at 1503, Nausea, Routine Given 10/03/2020 4:01 EDT 4 mg ondansetron (PF) (ZOFRAN) injection 4 mg 4 mg, intravenous, NOW X1, 1 dose, On Tue10/03/20 at 0530, Routine Given 10/03/2020 5:33 EDT 4 mg potassium chloride SA (K-DUR) tablet 40 mEq 40 mEq, oral, Once (Without Time Specified), 1 dose, Starting on Tue10/04/20 at 0600, Until Tue10/03/20 at 1503, Routine documented in this encounter Active and Recently Administered Medications Times are shown in EDT. Scheduled Medication Order 10/01/2020 10/02/2020 10/03/2020 capsaicin (CAPZASIN-HP) 0.1 % cream 1 application (COMPLETED) 1 application, topical, NOW X1, 1 dose, On Tue10/02/20 at 2145 2151 (Given - Provider: Fermin Ramirez RN) electrolyte-A (PLASMALYTE-A) bolus 1,000 mL (COMPLETED) 1,000 mL, intravenous, NOW X1, 1 dose, On Tue10/02/20 at 1915 1918 (New Bag - Provider: Levi Jasso MA)2138 (Completed - Provider: Fermin Ramirez RN) gabapentin (NEURONTIN) capsule 100 mg 100 mg, oral, 2 TIMES DAILY BEFORE BREAKFAST & LUNCH, First dose on Tue10/03/20 at 0700, Until Discontinued, Routine 0600 (Given - Provid er: Shirley Monte RN)1200 (Given - Provider: Carie Cook RN) gabapentin (NEURONTIN) capsule 300 mg 300 mg, oral, AT BEDTIME, First dose on Tue10/03/20 at 0045, Until Discontinued, Routine 0148 (Not Given - Provider: Shirley Monte RN - Reason: Other - Comment: pt sleeping) insulin aspart U-100 (NOVOLOG FLEXPEN) injection subcutaneous, EVERY 6 HOURS, First dose on Tue10/03/20 at 0600, Until Discontinued, Routine, Indications: SUPPLEMENTAL INSULIN 0705 (Given - Provid er: Shirley Monte RN)1200 (Canceled Entry - Provider: Batch Job User Admin - Comment: Automatically canceled at discontinue of medication order) iohexoL (OMNIPAQUE 350) solution 100 mL (COMPLETED) 100 mL, intravenous, Once in imaging, 1 dose, Starting on Tue10/02/20 at 2033, Until Tue10/02/20 at 2046, Routine, Imaging Protocol Orders 2046 (Given - Provider: Aide Leonard) LORazepam (ATIVAN) injection 0.5 mg (COMPLETED) 0.5 mg, intravenous, NOW X1, 1 dose, On Tue10/03/20 at 0530, Routine 0533 (Given - Provid er: Shirley Monte RN) metoclopramide HCl (REGLAN) tablet 10 mg 10 mg, oral, 3 TIMES DAILY BEFORE MEALS, First dose on Tue10/03/20 at 0700, Until Discontinued, Routine 0601 (Given - Provid er: Shirley Monte RN)1200 (Given - Provider: Carie Cook RN) ondansetron (PF) (ZOFRAN) injection 4 mg (COMPLETED) 4 mg, intravenous, NOW X1, 1 dose, On Tue10/02/20 at 2130, STAT 2122 (Given - Provider: Lily Petersen) ondansetron (PF) (ZOFRAN) injection 4 mg (COMPLETED) 4 mg, intravenous, NOW X1, 1 dose, On Tue10/03/20 at 0530, Routine 0533 (Given - Provid er: Shirley Monte RN) potassium chloride SA (K-DUR) tablet 40 mEq 40 mEq, oral, Once (Without Time Specified), 1 dose, Starting on Tue10/04/20 at 0600, Until Tue10/03/20 at 1503, Routine PRN Medication Order 10/01/2020 10/02/2020 10/03/2020 acetaminophen (TYLENOL) tablet 650 mg 650 mg, oral, EVERY 6 HOURS PRN, Starting on Tue10/03/20 at 0018, Until Tue10/03/20 at 1503, Pain, Fever, Routine capsaicin (CAPZASIN-HP) 0.1 % cream topical, 2 TIMES DAILY PRN, Starting on Tue10/03/20 at 0900, Until Tue10/03/20 at 1503, pain and nausea dextrose 50 % solution 12.5 g 12.5 g (25 mL), intravenous, PRN, Starting on Tue10/03/20 at 0348, Until Tue10/03/20 at 1503, Low Blood Sugar, Routine glucagon injection 1 mg 1 mg, intramuscular, PRN, Starting on Tue10/03/20 at 0348, Until Tue10/03/20 at 1503, Other, Low blood sugar, Routine LORazepam (ATIVAN) tablet 0.5 mg 0.5 mg, oral, 3 TIMES DAILY PRN, Starting on Tue10/03/20 at 0018, Until Tue10/03/20 at 1503, Anxiety, Routine 0406 (Given - Provid er: Shirley Monte RN) ondansetron (PF) (ZOFRAN) injection 4 mg 4 mg, intravenous, EVERY 4 HOURS PRN, Starting on Tue10/03/20 at 0018, Until Tue10/03/20 at 1503, Nausea, Routine 0401 (Given - Provid er: Shirley Monte RN) polyethylene glycol 3350 (MIRALAX) packet 17 g 17 g, oral, DAILY PRN, Starting on Tue10/03/20 at 0018, Until Tue10/03/20 at 1503, Constipation, Routine ramelteon (ROZEREM) tablet 8 mg 8 mg, oral, AT BEDTIME PRN, Starting on Tue10/03/20 at 0018, Until Tue10/03/20 at 1503, Sleep, Routine documented in this encounter Orders Medications Ordered That Stan ht Not Have Been Administered Count Last Ordered Date First Ordered Date acetaminophen (TYLENOL) tablet 650 mg 1 capsaicin (CAPZASIN-HP) 0.1 % cream 1 10/03 dextrose 50 % solution 12.5 g 1 10/03/2020 gabapentin (NEURONTIN) capsule 300 mg 1 glucagon injection 1 mg 1 10/03/2020 haloperidoL (HALDOL) tablet 5 mg 1 10/04/19 insulin aspart U-100 (NOVOLO G FLEXPEN) injection 1 10/03/2020 polyethylene glycol 3350 (CA RALAX) packet 17 g 1 10/03/2020 potassium chloride SA (K-DUR ) tablet 40 mEq 1 10/03/2020 ramelteon (ROZEREM) tablet 8 mg 1 Diet Count Last Ordered Date First Orde red Date DISCHARGE DIET 1 10/03/2020 Nursing Count Last Ordered Date First Orde red Date ACTIVITY INSTRUCTIONS 1 10/03/2020 BATHING INSTRUCTIONS 1 10/03/2020 DRIVING INSTRUCTIONS 1 10/03/2020 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
--- OUTSIDE RECORDS SUMMARY | 2023-12-16 00:36 | XMS_ITS | Encounter Summary ---
Author Organization [facility] Address [address] [place] [address] Care Team Providers Care Office Electrician Name Role Phone Unavailable Primary Care Provider Unavailabl e Reason for Visit * Reason Onset Date Comments No Show 11/24/2020 Encounter Details Date Type Department Care Team (Late st Contact Info) Description 11/24/2020 Telephone [facility] Adult Primary Care - [address] [phone] Tonja Alejandro PA-C [address] [place] [address] [place] [phone] No Show Social History Tobacco Use Types [...] encounter Miscellaneous Notes * Telephone Encounter - Dayana Cosme - 11/24/2020 1631 EDT Call to Pt LMOVM inviting Pt to call and reschedule. Also apt was from today 11.24.20 * Telephone Encounter - Kamini Raya - 11/24/2020 1024 EDT Patient was no show for a f/u 10/22/[address] Mosqueda documented in this encounter Plan of Treatment Upcoming Encounters Date Type Department Care Team (Late st Contact Info) Description 02/21/2024 9:45 EDT Office Visit [facility] Adult Primary Care - [address] [address] Carrington Calderon MD [address] [phone] 02/27/2024 8:30 EDT Telemedicine [facility] Sleep Program - [address] [phone] Rn, Sleep 02/29/2024 10:[address] [facility] Radiology Nuclear Medicine and PET [address] [phone] 02/29/2024 14:[address] [facility] Radiology Nuclear Medicine and PET [address] [phone] 03/01/2024 8:[address] [facility] Radiology Nuclear Medicine and PET [address] [phone] 03/01/2024 9:[address] [facility] Radiology Nuclear Medicine and PET [address] [phone] documented as of this encounter Visit Diagnoses Not on filedocumented in this encounter
--- OUTSIDE RECORDS SUMMARY | 2023-12-16 00:36 | XMS_ITS | Encounter Summary ---
Author Organization [facility] Address [address] [place] [address] Care Team Providers Care Tanker Driver Name Role Phone Unavailable Primary Care Provider Unavailabl e Encounter Details Date Type Department Care Team (Latest Contact Info) Description 11/20/2020 Travel Social History Tobacco Use Types Packs/Day [...] [facility] - [address] [phone] Carrington Calderon MD [address] [place] [address] [address] [place] [phone] 02/27/2024 8:30 EDT Telemedicine [facility] Sleep Program - [address] [phone] Rn, Sleep 02/29/2024 10:30 EDT Appointment [facility] Radiology Nuclear Medicine and PET - [address] [phone] 02/29/2024 14:30 EDT Appointment [facility] Radiology Nuclear Medicine and PET - [address] [phone] 03/01/2024 8:00 EDT Appointment [facility] Radiology Nuclear Medicine and PET - [address] [phone] 03/01/2024 9:30 EDT Appointment [facility] Radiology Nuclear Medicine and PET - [address] [phone] documented as of this encounter Visit Diagnoses Not on filedocumented in this encounter
--- OUTSIDE RECORDS SUMMARY | 2023-12-16 00:36 | XMS_ITS | Encounter Summary ---
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 Name Role Phone Unavailable Primary Care Provider Unavailabl e Reason for Visit * Reason Onset Date Comments Prior Auth, Medication 10/23/2020 Encounter Details Date Type Department Care Team (Late st Contact Info) Description 10/23/2020 Telephone [facility] Adult Primary Care [address] [phone] Tonja Alejandro PA-C [address] [place] [address] [place] [phone] Prior Auth, Medication Social History Tobacco Use [...] * Telephone Encounter - Mily Torres - 10/23/2020 0844 EDT Auth needed for Lidocaine 5% Patches Mejia: [id number] PA has been completed via iodine. Awaiting decision Medication does not require a PA. Pharmacy notified documented in this encounter Plan of Treatment Upcoming Encounters Date Type Department Care Team (Late st Contact Info) Description 02/21/2024 9:45 EDT Office Visit [facility] Adult Primary Care [address] [address] Carrington Calderon MD [address] [facility] [address] [place] [phone] 02/27/2024 8:30 EDT Telemedicine [facility] Sleep Program - [address] [phone] Rn, Sleep 02/29/2024 10:30 EDT [facility] Nuclear Medicine and PET - [address] [phone] 02/29/2024 14:30 EDT [facility]ointment [facility] Nuclear Medicine and PET - [address] [phone] 03/01/2024 8:00 EDT Appointment [facility] Radiology Nuclear Medicine and PET - [address] [phone] 03/01/2024 9:30 EDT Appointment [facility] Radiology Nuclear Medicine and PET - [address] [phone] documented as of this encounter Visit Diagnoses Not on filedocumented in this encounter
--- OUTSIDE RECORDS SUMMARY | 2023-12-16 00:36 | XMS_ITS | Encounter Summary ---
Author Organization [facility] Address [address] [place] [id number] Care Team Providers Care Hide Buyer Name Role Phone Unavailable Primary Care Provider Unavailabl e Reason for Visit * Reason Comments Dehydration needs rehydration an d nausea meds per PCP Encounter Details Date Type Department Care Team (Latest Contact Info) Description 11/20/2020 9:58 EDT - 11/20/2020 12:29 EDT Hospital Encounter [facility] - [address] [address] Fran Blanco MD [address] [place] [phone] Nausea and vomiting, intractability of vomiting not specified, unspecified vomiting type (Primary Dx); Intractable vomiting with nausea, unspecified vomiting type Discharge Disposition: Home or Self Care Social [...] 9:23 EDT documented as of this encounter Last Filed Vital Signs Vital Sign Reading Time Taken Comments Blood Pressure 149/65 11/20/2020 0956 EDT Pulse 58 11/20/2020 0956 EDT Temperature 36.1 ??C (97 ??F) 11/20/2020 0956 EDT Respiratory Rate 24 11/20/2020 0956 EDT Oxygen Saturation 100% 11/20/2020 0956 EDT Inhaled Oxygen Concentration - - Weight [...] encounter Discharge Instructions * Discharge Instructions* Fran Blanco MD - 11/20/2020 12:26 EDT Reglan as needed and follow up with your PCP if having difficulty staying hydrated or worsening. * Attachments The following attachments cannot be sent through Care Everywhere. * Nausea and Vomiting (Macedonian) documented in this encounter Medications at Time of Discharge Medication Sig Dispensed Refills Start Date End Date acetaminophen (TYLENOL) 325 mg tablet Take 2 Tabs by mouth every 4 hours as needed for Pain. 08/20/2020 blood glucose meter One Touch Verio Flex meter. 1 Each 10/04/2019 12/21/2021 blood glucose test strips Brand: Contix Precision Cristo, use as directed if Freestyle [...] 3 10/01/2020 03/15/2022 gabapentin (NEURONTIN) 300 mg capsule Take 1 Cap by mouth daily. Take 1 cap in the evening. (In addition to 100mg gabapentin twice daily) 90 Cap 1 10/22/2020 12/04/2020 insulin aspart U-100 (NOVOLOG FLEXPEN) 100 unit/mL [...] hyperglycemia, with long-term current use of insulin ([facility]) Use 1 pen needle as directed [...] Anxiety. Daily Max: 1.5 mg 30 Tab 10/22/2020 12/05/2020 metoclopramide HCl (REGLAN) 10 mg tablet Take [...] Code Departure Means Destination Home or Self Mcfp documented in this encounter ED Notes * Harini Castaneda RN - 11/20/2020 1229 EDT Pt alert/oriented/ambulatory with steady gait. Discharged to home. Discharge instructions reviewed,emphasis on the importance of appropriate follow up care. Patient verbalized understanding Patient tolerating PO * Fran Blanco MD - 11/20/2020 1227 EDT DOS: 11/20/2020 Chief Complaint: Chief Complaint Patient presents with ??? Dehydration needs rehydration and nausea meds per PCP Assessment and Plan S/p reglan and 1 L NS pt felt much improved, she feels back to baseline. No further emesis. Drank 12+ oz water at with no issues. She has a new prescription for reglan. She will monitor her blood sugars. If return of sx or not feeling well she will be in touch with her PCP/go to the ED. Final diagnoses: Nausea and vomiting, intractability of vomiting not specified, unspecified vomiting type Procedures Results for orders placed or performed during the hospital encounter of 11/20/20 COMPREHENSIVE METABOLIC PANEL (CMP) Result Value Ref Range Sodium 143 136 - 145 mEq/L Potassium 4.0 3.5 - 5.0 mEq/L Chloride 97 96 - 110 mEq/L CO2 Total 28 22 - 32 mEq/L Glucose 307 (H) 70 - 100 mg/dL BUN 12 10 - 26 mg/dL Creatinine 0.49 (L) 0.52 - 1.04 mg/dL eGFR 127 >60 mL/min/1.73m2 Total Protein 7.6 6.3 - 8.2 g/dL Albumin 4.6 3.4 - 4.9 g/dL Alkaline Phosphatase 113 38 - 126 U/L AST 23 15 - 46 U/L ALT 21 <35 U/L Bilirubin, Total <0.5 <1.4 mg/dL Calcium 10.3 8.5 - 10.5 mg/dL Calculated Calcium 9.8 8.5 - 10.5 mg/dL COMPLETE BLOOD COUNT AND DIFFERENTIAL Result Value Ref Range WBC 14.78 (H) 4.00 - 12.40 K/cmm RBC 4.65 3.86 - 5.04 M/cmm Hemoglobin 14.1 11.6 - 15.2 gm/dL HCT 40.7 34.9 - 44.4 % MCV 88 81 - 98 fl MCH 30.3 26.7 - 33.3 pg MCHC 34.6 32.1 - 35.9 gm/dL RDW-CV 12.5 <14.7 % RDW-SD 39.7 <50.4 fl PLT 385 (H) 141 - 377 K/cmm MPV 10.2 9.5 - 12.7 fl Neutrophils 84.6 % Lymphocytes 10.4 % Monocytes 4.3 % Eosinophils 0.0 % Basophils 0.2 % Immature Grans 0.5 % Absolute Neutrophils 12.51 (H) 2.20 - 8.85 K/cmm Absolute Lymphocytes 1.53 1.09 - 3.30 K/cmm Absolute Monocytes 0.64 0.10 - 0.80 K/cmm Absolute Eosinophils 0.00 (L) 0.03 - 0.61 K/cmm Absolute Basophils 0.03 0.01 - 0.11 K/cmm Absolute Immature Grans 0.07 (H) 0.00 - 0.06 K/cmm Type of Differential: Auto URINE SEDIMENT (MICRO) WITH REFLEX TO CULTURE Specimen: Urine, Clean Catch Result Value Ref Range Urine RBC Count, Auto 3 - 10 (A) 0 - 2 Cells/HPF Urine WBC Count, Auto 11 - 50 (A) 0 - 3 Cells/HPF Urine Squamous Count, Auto Many (A) None Seen Cells/HPF Urine Hyaline Cast Count, Auto <=10 <=10 Casts/LPF Urine Bacteria Count, Auto Moderate (A) None Seen Bacteria/HPF POCT URINE DIPSTICK, CLINITEK Result Value Ref Range Color, UA Yellow Yellow Clarity, UA Cloudy (A) Clear Glucose, UA 2+ (A) Negative mg/dL Bilirubin, UA Negative Negative Ketones, UA 3+ (AA) Negative mg/dL Specific Nabb, Urine 1.025 1.001 - 1.035 Blood, UA Trace (A) Negative pH, UA 7.0 <=8 Protein, UA 1+ (A) Negative mg/dL Urobilinogen, UA 0.2 0.2 - 1.0 EU/dL Nitrite, UA Negative Negative Leuk Esterase Negative Negative HN LAB COMMENT (CLINITEK, UR) Test performed at Urgent Care Radiology orders: None Consult orders: None Imaging Results None No orders to display The patient is a 35 y.o. female who presents today with Dehydration (needs rehydration and nausea meds per PCP) Cc emesis 35 yo IDDM with gastroparesis presents with emesis that began last night. This is not uncommon, andshe usually manages well with reglan, but is out. Her PCP office sent a new prescription, but she has had episodes where once she begins to vomit she can't keep the medication down, and she came intoUC. She urinated once overnight, and feels dehydrated. No fevers/chills. No diarrhea or constipation. She's been in her usual lexae of health prior to this. No URI sx. No dysuria. FSBS have been in 200 range. Review of Systems Constitutional: Negative for chills and fever. HENT: Negative. Eyes: Negative for visual disturbance. Respiratory: Negative for cough and shortness of breath. Cardiovascular: Negative for chest pain and palpitations. Gastrointestinal: Positive for nausea and vomiting. Negative for abdominal pain and diarrhea. Genitourinary: Negative for dysuria and flank pain. Musculoskeletal: Negative for arthralgias and myalgias. Skin: Negative for rash. Neurological: Negative for dizziness and light-headedness. Psychiatric/Behavioral: Negative for confusion. No current facility-administered medications for this encounter. Current Outpatient Medications Medication Sig Dispense Refill ??? acetaminophen (TYLENOL) 325 mg tablet Take 2 Tabs by mouth every 4 hours as needed for Pain. ??? blood glucose meter One Touch Verio Flex meter. 1 Each 0 ??? blood glucose test strips Brand: [employer] Precision Cristo, use as directed if Freestyle Vignesh censor isnt working 100 Each 3 ??? blood glucose test strips One Touch Verio IQ or other brand compatible with meter and covered by patient's insurance. Testing QID. 100 Each 5 ??? capsaicin (ZOSTRIX) 0.025 % topical cream Apply up to 2 times daily over abdomen, shoulders andarms as needed for abdominal pain and nausea (Patient not taking: Reported on 10/22/2020) 1 Tube 1 ??? flash glucose scanning reader (FREESTYLE VIGNESH 2 READER) misc 1 Device by [employer] (non-drug; comboroute) route continuous. 1 Each 0 ??? flash glucose sensor (FREESTYLE VIGNESH 2 SENSOR) kit 1 Device by [employer] (non- drug; combo route) route continuous. 6 Kit 3 ??? gabapentin (NEURONTIN) 300 mg capsule Take 1 Cap by mouth daily. Take 1 cap in the evening. (Inaddition to 100mg gabapentin twice daily) 90 Cap 1 ??? insulin aspart U-100 (NOVOLOG FLEXPEN) 100 [...] period. (Patient not taking: Reported on 11/04/2020) 10 Patch 0 ??? metoclopramide HCl (REGLAN) 10 mg tablet Take 1 Tablet by mouth 3 times daily before meals for 90 days. 270 Tablet 3 ??? mirtazapine (REMERON) 15 mg tablet Take 1 Tab by mouth at bedtime. 30 Tab 2 ??? Miscellaneous Medication - See Admin Instructions Dispense one lancing device, generic brand ascovered by insurance. 1 Each 0 ??? nicotine (NICODERM CQ) 7 mg/24 hr patch Apply one patch only daily on skin without hair. Apply to a different skin site at the same time each day. (Patient not taking: Reported on 11/20/2020) 14 Patch 0 ??? SITagliptin (JANUVIA) 50 mg tablet Take 1 Tab by mouth daily. 90 Tab 3 ??? TENS unit and electrodes combo pack 1 Each by misc (non-drug; combo route) route daily. 1 Each 0 ??? traMADol (ULTRAM) 50 mg tablet Take 1 Tab by mouth every 6 hours as needed for Pain. Daily Max:200 mg 30 Tab 0 Allergies Allergen Reactions ??? Citalopram Other (See Comments) suicidal ideation, approx 2012 ??? Other - See Comments Swelling of throat pomergrante ??? Advil [Ibuprofen] Hives Patient Active Problem List Diagnosis Date Noted ??? Vomiting 10/03/2020 ??? Intractable vomiting 10/02/2020 ??? Hx of ectopic 06/20/2020 ??? 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 ([facility]) 05/03/2020 ??? Osteomyelitis of great toe of left foot ([facility]) 03/12/2020 ??? Diabetic foot ulcer associated with diabetes mellitus due to underlying condition ([facility]) 03/07/2020 ??? Diabetic foot infection ([facility]) 03/06/2020 ??? Diabetic foot ulcer ([facility]) 03/06/2020 ??? Cellulitis of great toe of left foot 11/26/2019 ??? Chronic midline low back pain without sciatica 11/26/2019 ??? Chronic left ear pain 09/04/2015 ??? Gastroparesis 08/10/2020 SUSPECTED - still needs to be eval with gastric emptying study (as of 08/10/20) ??? Admission for sterilization 06/27/2020 Added automatically from request for surgery [id number] ??? Osteomyelitis of toe of left foot ([facility] 06/05/2020 Added automatically from request for surgery [id number] ??? Type 2 diabetes mellitus with diabetic polyneuropathy, with long-term current use of insulin ([facility]) 06/05/2020 Added automatically from request for surgery [id number] ??? Family history of rheumatoid arthritis 09/04/2015 Mother, pt with chronic back pain. Told arthritis in spine in teen yrs. ??? Type 2 diabetes mellitus ([facility]) 09/03/2015 Dx approx age 25. Controlled with lifestyle behaviors, wt loss. Had taken lantus in past 80u, Followed by endocrine in [facility]. Stopped few yrs ago until this past month. ??? Anxiety and depression 05/12/2010 Onset teen yrs. Treated with citalopram in approx 2012 - had SI, treated at [facility]. Marijuana prn to help with stress/anxiety sx. ??? Migraine with aura and without status migrainosus, not intractable Dx approx age 15. Average 2/ month. Chronic left ear ?trigger. Migraine with aura - pt experiences shooting stars mins before onset of leon every time. Past Medical History: Diagnosis Date ??? Abnormal [...] has a referral for therapy. ??? Diabetes ([facility]) A1c 10.3 on 11/28/2019 - poorly controlled ??? Diabetes mellitus, type 2 ([facility]) pt check blood sugars at home- [...] vomiting occasionally ??? Obesity, unspecified ??? Osteomyelitis ([facility]) of left great toe-s/p amputation ??? Peripheral neuropathy 3/9/21- Bilateral feet-Takes Gabapentin- pt just started this med. ??? Productive cough pt currently quitting smoking- clear secretions. ??? Spontaneous miscarriage 09/04/201502/18, 08/19. Followed by Dr. L[facility] Social History Tobacco Use ??? Smoking status: Former Smoker Packs/day: 0.25 Years: 10.00 Pack years: 2.50 Types: Cigarettes Start date: 11/10/2010 ??? Smokeless tobacco: Never Used ??? Tobacco comment: 06/13/20 actively trying to quit about 5-8 cigs/day Substance Use Topics ??? Alcohol use: Yes Comment: rarely ??? Drug use: Yes Types: Marijuana Comment: 1X/DAY FOR ANXIETY Family History Problem Relation Age of Onset ??? Cancer Maternal Grandmother Breast ??? Diabetes Paternal Grandmother ??? Diabetes Maternal Aunt ??? Diabetes Paternal Aunt ??? Diabetes Paternal Uncle BP (!) 149/65 Pulse 58 Temp 97 ??F (36.1 ??C) Resp 24 SpO2 100% Physical Exam Vitals and nursing note reviewed. Constitutional: Appearance: She is well-developed. HENT: Head: Normocephalic and atraumatic. Right Ear: External ear normal. Left Ear: External ear normal. Cardiovascular: Rate and Rhythm: Normal rate and regular rhythm. Heart sounds: Normal heart sounds. No murmur heard. No friction rub. No gallop. Pulmonary: Effort: Pulmonary effort is normal. No respiratory distress. Breath sounds: Normal breath sounds. No wheezing. Abdominal: General: Bowel sounds are normal. Palpations: Abdomen is soft. Tenderness: There is no abdominal tenderness. There is no guarding or rebound. Musculoskeletal: General: No tenderness. Normal range of motion. Cervical back: Normal range of motion and neck supple. Skin: General: Skin is warm and dry. Findings: No erythema or rash. Neurological: Mental Status: She is alert and oriented to person, place, and time. Psychiatric: Behavior: Behavior normal. PCP: Tonja Alejandro No supervision required. Urgent Care Course A medical screening exam was performed. DISPOSITION: Discharged The patient's pain was managed to an adequate level weighing risk vs. benefit of further medications. Upon departure from [facility], the patient's pain was 0 on a zero to ten scale. Any further pain treatment will be at the discretion of the provider following up with the patient based on their clinical assessment . Condition at departure from the [facility] : Stable MDM 11/20/2020 17:40 * Harini Castaneda RN - 11/20/2020 1115 EDT Patient encouraged to give urine sample when able. Pt states that she is feeling moderately better after fluids and Reglan * Harini Castaneda RN - 11/20/2020 1016 EDT Denies abdominal pain. Denies diarrhea * Harini Castaneda RN - 11/20/2020 1012 EDT Pt presents to urgent care with persistent vomiting since yesterday. Followed up with PCP, states to go to urgent care for IV fluids. Past Medical History: Diagnosis Date ??? Abnormal [...] has a referral for therapy. ??? Diabetes ([facility]) A1c 10.3 on 11/28/2019 - poorly controlled ??? Diabetes mellitus, type 2 ([facility]) pt check blood sugars at home- [...] vomiting occasionally ??? Obesity, unspecified ??? Osteomyelitis ([facility]) of left great toe-s/p amputation ??? Peripheral neuropathy 08/12/20- Bilateral feet-Takes Gabapentin- pt just started this med. ??? Productive cough pt currently quitting smoking- clear secretions. ??? Spontaneous miscarriage 09/04/201502/18, 08/19. Followed by Dr. L[facility] in [facility] documented in this encounter Plan of Treatment Upcoming Encounters Date Type Department Care Team (Late st Contact Info) Description 02/21/2024 9:45 EDT Office Visit [facility] Primary [facility] - [address] [phone] Carrington Calderon MD [address] [phone] 02/27/2024 8:30 EDT Telemedicine [facility] Sleep Program - [address] [phone] Rn, Sleep 02/29/2024 10:30 EDT Appointment [facility] Radiology Nuclear Medicine and PET - [address] [id number] 02/29/2024 14:30 EDT [facility] - [address] [id number] 03/01/2024 8:00 EDT Appointment [facility] Radiology Nuclear Medicine and PET [address] [id number] 03/01/2024 9:30 EDT Appointment [facility] Radiology Nuclear Medicine and PET [address] [phone] documented as of this encounter Procedures Procedure Name Priority Date/Time Associated Diagnosis Comments UA SEDIMENT + REFLEX TO CULTURE STAT 11/20/2020 11:48 EDT Intractable vomiting with nausea, unspecified vomiting type BACTERIAL CULTURE, URINE Today 11/20/2020 11:48 EDT Intractable vomiting with nausea, unspecified vomiting type POCT CSN BARCODE URINE DIPSTICK STAT 11/20/2020 11:47 EDT Nausea and vomiting, intractability of vomiting not specified, unspecified vomiting type POCT URINE CLINITEK (DIPSTICK) - DOES NOT REFLEX STAT 11/20/2020 11:44 EDT Nausea and vomiting, intractability of vomiting not specified, unspecified vomiting type POCT URINE DIPSTICK, CLINITEK STAT 11/20/2020 11:44 EDT Nausea and vomiting, intractability of vomiting not specified, unspecified vomiting type COMPLETE BLOOD COUNT AND DIFFERENTIAL STAT 11/20/2020 10:35 EDT Nausea and vomiting, intractability of vomiting not specified, unspecified vomiting type COMPREHENSIVE METABOLIC PANEL (CMP) STAT 11/20/2020 10:35 EDT Nausea and vomiting, intractability of vomiting not specified, unspecified vomiting type documented in this encounter Results * BACTERIAL CULTURE, URINE (11/20/2020 11:48 EDT) Organism ID Mixed organisms, culture interpretation is difficult. Multiple bacterial morphotypes present. Suggest appropriate recollection with timely delivery to the laboratory if clinically indicated. 11/21/2020 12:11 EDT [facility] Urine URINE SPECIMEN COLLECTION, CLEAN CATCH / Unknown Urine Collect / Unknown 11/20/2020 11:48 EDT 11/20/2020 12:45 EDT Fran Blanco MD MICROBIOLOGY - G ENERAL ORDERABLES [facility] [address] [place] [address] * (ABNORMAL) URINE SEDIMENT (MICRO) WITH REFLEX TO CULTURE (11/20/2020 11:48 EDT) Urine RBC Count, Auto 3 - 10(A) 0 - 2 Cells/HPF 11/20/2020 12:45 EDT [facility] Urine WBC Count, Auto 11 - 50(A) 0 - 3 Cells/HPF 11/20/2020 12:45 EDT [facility] Urine Squamous Count, Auto Many(A) None Seen Cells/HPF 11/20/2020 12:45 EDT [facility] Urine Hyaline Cast Count, Auto <=10 <=10 Casts/LPF 11/20/2020 12:45 EDT [facility] Urine Bacteria Count, Auto Moderate(A ) None Seen Bacteria/H PF 11/20/2020 12:45 EDT [facility] Urine URINE SPECIMEN COLLECTION, CLEAN CATCH / Unknown Urine Collect / Unknown 11/20/2020 11:48 EDT 11/20/2020 12:25 EDT Narrative [facility] - 11/20/2020 12:45 EDT A Urine Culture test has been reflexively ordered based on result criteria from the Urine Sediment Analysis. Urine Sediment Analysis results are unreliable on urines that are unrefrigerated for >2 hrs or refrigerated >8 hrs. Fran Blanco MD URINALYSIS ORDER [place] Performing Organization Address [facility] Co de Phone Number [facility] [address] [place] [id number] * POCT CSN BARCODE URINE DIPSTICK (11/20/2020 11:47 EDT) Urine URINE SPECIMEN COLLECTION, CLEAN CATCH / Unknown Urine Collect / Unknown 11/20/2020 11:47 EDT 11/20/2020 11:47 EDT Fran Blanco MD LAB INFO SERVICE AND SUPPORT & PHONE RESULT Performing Organization Address [facility] Co de Phone Number [facility] [address] [place] [address] * (ABNORMAL) POCT URINE DIPSTICK, CLINITEK (11/20/2020 11:44 EDT) Color, UA Yellow Yellow 11/20/2020 11:46 [facility] Clarity, UA Cloudy(A) Clear 11/20/2020 11:46 [facility] Glucose, UA 2+(A) Negative mg/dL 11/20/2020 11:46 [facility] Bilirubin, UA Negative Negative 11/20/2020 11:46 [facility] Ketones, UA 3+(AA) Negative mg/dL 11/20/2020 11:46 [facility] Specific Nabb, Urine 1.025 1.001 - 1.035 11/20/2020 11:46 [facility] Blood, UA Trace(A) Negative 11/20/2020 11:46 [facility] pH, UA 7.0 <=8 11/20/2020 11:46 [facility] Protein, UA 1+(A) Negative mg/dL 11/20/2020 11:46 [facility] Urobilinogen, UA 0.2 0.2 - 1.0 EU/dL 11/20/2020 11:46 [facility] Nitrite, UA Negative Negative 11/20/2020 11:46 [facility] Leuk Esterase Negative Negative 11/20/2020 11:46 [facility] HN LAB COMMENT (CLINITEK, UR) Test performed at Urgent Care 11/20/2020 11:46 [facility] Urine URINE SPECIMEN COLLECTION, CLEAN CATCH / Unknown 11/20/2020 11:44 EDT 11/20/2020 11:46 EDT Fran Blanco MD POINT OF CARE [facility] ORDERABLES [facility] [address] [place] [address] * (ABNORMAL) COMPLETE BLOOD COUNT AND DIFFERENTIAL (11/20/2020 10:35 EDT) WBC 14.78(H) 4.00 - 12.40 K/cmm 11/20/2020 11:51 [facility] RBC 4.65 3.86 - 5.04 M/cmm 11/20/2020 11:51 [facility] Hemoglobin 14.1 11.6 - 15.2 gm/dL 11/20/2020 11:51 [facility] HCT 40.7 34.9 - 44.4 % 11/20/2020 11:51 [facility] MCV 88 81 - 98 fl 11/20/2020 11:51 [facility] MCH 30.3 26.7 - 33.3 pg 11/20/2020 11:51 [facility] MCHC 34.6 32.1 - 35.9 gm/dL 11/20/2020 11:51 [facility] RDW-CV 12.5 <14.7 % 11/20/2020 11:51 [facility] RDW-SD 39.7 <50.4 fl 11/20/2020 11:51 [facility] PLT 385(H) 141 - 377 K/cmm 11/20/2020 11:51 [facility] MPV 10.2 9.5 - 12.7 fl 11/20/2020 11:51 [facility] % Neutrophils 84.6 % 11/20/2020 11:51 [facility] % Lymphocytes 10.4 % 11/20/2020 11:51 [facility] % Monocytes 4.3 % 11/20/2020 11:51 [facility] % Eosinophils 0.0 % 11/20/2020 11:51 [facility] % Basophils 0.2 % 11/20/2020 11:51 [facility] % Immature Grans 0.5 % 11/21/19 11:51 [facility] Absolute Neutrophils 12.51(H) 2.20 - 8.85 K/cmm 11/20/2020 11:51 [facility] Absolute Lymphocytes 1.53 1.09 - 3.30 K/cmm 11/20/2020 11:51 [facility] Absolute Monocytes 0.64 0.10 - 0.80 K/cmm 11/20/2020 11:51 [facility] Absolute Eosinophils 0.00(L) 0.03 - 0.61 K/cm 11/20/2020 11:51 [facility] ABS Basophils 0.03 0.01 - 0.11 K/cm 11/20/2020 11:51 [facility] Absolute Immature Grans 0.07(H) 0.00 - 0.06 K/cm 11/20/2020 11:51 [facility] Type of Differential: Auto 11/20/2020 11:51 [facility] Blood VENOUS BLOOD / Unknown Venipuncture / Unknown 11/20/2020 10:35 EDT 11/20/2020 11:37 EDT Fran Blanco MD PACKAGES & DNA P ROBE ORDERABLES [facility] [address] [place] [address] * (ABNORMAL) COMPREHENSIVE METABOLIC PANEL (CMP) (11/20/2020 10:35 EDT) Sodium 143 136 - 145 mEq/L 11/20/2020 12:01 [facility] Potassium 4.0 3.5 - 5.0 mEq/L 11/20/2020 12:01 [facility] Chloride 97 96 - 110 mEq/L 11/20/2020 12:01 [facility] SERVICES CO2 Total 28 22 - 32 mEq/L 11/20/2020 12:01 [facility] Glucose 307(H) 70 - 100 mg/dL 11/20/2020 12:01 [facility] BUN 12 10 - 26 mg/dL 11/20/2020 12:01 [facility] Creatinine 0.49(L) 0.52 - 1.04 mg/dL 11/20/2020 12:01 [facility] eGFR 127 >60 mL/min/1.7 3m2 11/20/2020 12:01 [facility] Comment:eGFR calculated gil curtis CKD-EPI equation for non- Americans. Multiply eGFR by 1.16 for patients. Total Protein 7.6 6.3 - 8.2 g/dL 11/20/2020 12:01 [facility] Albumin 4.6 3.4 - 4.9 g/dL 11/20/2020 12:01 [facility] Alkaline Phosphatase 113 38 - 126 U/L 11/20/2020 12:01 [facility] AST 23 15 - 46 U/L 11/20/2020 12:01 [facility] ALT 21 <35 U/L 11/20/2020 12:01 [facility] Bilirubin, Total <0.5 <1.4 mg/dL 11/21/19 21 12:01 [facility] Calcium 10.3 8.5 - 10.5 mg/dL 11/20/2020 12:01 [facility] Calculated Calcium 9.8 8.5 - 10.5 mg/dL 11/20/2020 12:01 [facility] Blood VENOUS BLOOD / Unknown Venipuncture / Unknown 11/20/2020 10:35 EDT 11/20/2020 11:37 EDT Fran Blanco MD CHEMISTRY & BLOO D GAS ORDERABLES [facility] [address] [place] [address] documented in this encounter Visit Diagnoses Diagnosis Nausea and vomiting, intractability of vomiting not specified, unspecified vomiting type- Primary Intractable vomiting with nausea, unspecified vomiting type documented in this encounter Administered Medications Inactive Administered Medications - up to 3 most recent administrations Medication Order MAR Action Action Date Dose Rate Site metoclopramide (REGLAN) injection 10 mg 10 mg, intravenous, NOW X1, 1 dose, On Renee 11/20/20 at 1030, Routine Given 11/20/2020 10:38 EDT 10 mg sodium chloride 0.9 % BOLUS 1,000 mL 1,000 mL, intravenous, NOW X1, 1 dose, On Renee 11/20/20 at 1030, Routine New Bag 11/20/2020 10:35 EDT 1,000 mL documented in this encounter Discontinued Medications Medication Sig Discontinue Reason Start Date End Da te gabapentin (NEURONTIN) 100 mg capsule Take 1 Cap by mouth 2 times daily before breakfast and lunch. 10/22/2020 11/20/2020 documented as of this encounter Active and Recently Administered Medications Times are shown in EDT. Scheduled Medication Order 11/18/2020 11/19/2020 11/20/2020 metoclopramide (REGLAN) injection 10 mg (COMPLETED) 10 mg, intravenous, NOW X1, 1 dose, On Reene 11/20/20 at 1030, Routine 1038 (Given - Provid er: Harini Castaneda RN) sodium chloride 0.9 % BOLUS 1,000 mL (COMPLETED) 1,000 mL, intravenous, NOW X1, 1 dose, On Renee 11/20/20 at 1030, Routine 1035 (New Bag - Prov ider: Harini Castaneda RN) documented in this encounter
--- OUTSIDE RECORDS SUMMARY | 2023-12-16 00:36 | XMS_ITS | Encounter Summary ---
Author Organization [facility] Address [address] [place] [address] Care Team Providers Care Hand Washer Name Role Phone Unavailable Primary Care Provider Unavailabl e Reason for Visit * Reason Onset Date Comments Medications Refill 12/05/2020 Encounter Details Date Type Department Care Team (Late st Contact Info) Description 12/05/2020 Refill [facility] Adult Primary Care - [address] [phone] Tonja Alejandro PA-C [address] [place] [address] [place] [phone] Medications Refill Social History Tobacco Use [...] Anxiety. Daily Max: 1.5 mg 30 Tablet 12/05/2020 12/31/2020 documented in this encounter Miscellaneous Notes * Telephone Encounter - Ethan Aquino - 12/05/2020 0823 EDT Medication(s) Requested: Lorazepam Preferred Pharmacy: [facility] Is patient out of medication? Yes Last Refill Date: 10.22.20 Last Visit Date with Ordering Provider: 11.04.20 Next Non-Acute Visit Date Scheduled with Care Team: No. Ethan Aquino 12/05/2020 8:23 documented in this encounter Plan of Treatment Upcoming Encounters Date Type Department Care Team (Late st Contact Info) Description 02/21/2024 9:45 EDT Office Visit [facility] Adult Primary Care - [address] [address] Carrington Calderon MD [address] [place] [phone] 02/27/2024 8:30 EDT Telemedicine [facility] Sleep Program - [address] [phone] Rn, Sleep 02/29/2024 10:30 EDT Appointment [facility] Radiology Nuclear Medicine and PET [address] [id number] 02/29/2024 14:30 EDT Appointment [facility] Radiology Nuclear Medicine and PET [address] [phone] 03/01/2024 8:00 EDT Appointment [facility] Radiology Nuclear Medicine and PET [address] [phone] 03/01/2024 9:30 EDT Appointment [facility] Radiology Nuclear Medicine and PET [address] [phone] documented as of this encounter Visit Diagnoses Not on filedocumented in this encounter Discontinued Medications Medication Sig Discontinue Reason Start Date End Da te LORazepam (ATIVAN) 0.5 mg tablet Take 1 Tab by mouth 3 times daily as needed for up to 14 days for Anxiety. Daily Max: 1.5 mg Reorder 10/22/2020 12/05/2020 documented as of this encounter
--- OUTSIDE RECORDS SUMMARY | 2023-12-16 00:36 | XMS_ITS | Encounter Summary ---
Author Organization [facility] Address [address] [place] [address] Care Team Providers Care Engraving Plate Maker Name Role Phone Unavailable Primary Care Provider Unavailabl e Encounter Details Date Type Department Care Team (Late st Contact Info) Description 10/10/2020 Orders Only [facility] Adult Primary Care - [address] [phone] Tonja Alejandro PA-C [address] [place] [address] [place] [phone] Social History Tobacco Use Types Packs/Day Years [...] 9:45 EDT Office Visit [facility] Adult Primary Care - [address] [phone] Carrington Calderon MD 1 [facility] [address] [place] [phone] 02/27/2024 8:30 EDT Telemedicine [facility] Sleep Program - [address] [phone] Rn, Sleep 02/29/2024 10:30 EDT Appointment [facility] Radiology Nuclear Medicine and PET - [address] [address] 02/29/2024 14:30 EDT Appointment [facility] Radiology Nuclear Medicine and PET - [address] [address] 03/01/2024 8:00 EDT Appointment [facility] Radiology Nuclear Medicine and PET - [address] [address] 03/01/2024 9:[address] [facility] Radiology Nuclear Medicine and PET - [address] [address] documented as of this encounter Visit Diagnoses Not on filedocumented in this encounter Discontinued Medications Medication Sig Discontinue Reason Start Date End Da te haloperidoL (HALDOL) 5 mg tablet Take 1 Tab by mouth daily as needed for Nausea. Alternate therapy 10/01/2020 10/10/2020 documented as of this encounter
--- OUTSIDE RECORDS SUMMARY | 2023-12-16 00:36 | XMS_ITS | Encounter Summary ---
Author Organization [facility] Address [address] [place] [address] Care Team Providers Care Christian Counselor Name Role Phone Unavailable Primary Care Provider Unavailabl e Encounter Details Date Type Department Care Team (Latest Contact Info) Description 10/22/2020 Travel Social History Tobacco Use Types Packs/Day [...] 02/21/2024 9:45 EDT Office Visit [facility] Adult Primary Care - [address] [phone] Carrington Calderon MD [address] [place] [phone] 02/27/2024 8:30 EDT Telemedicine [facility] Sleep Program - [address] [phone] Rn, Sleep 02/29/2024 10:30 EDT Appointment [facility] Radiology Nuclear Medicine and PET - [address] [phone] 02/29/2024 14:30 EDT Appointment [facility] Radiology Nuclear Medicine and PET - [address] [phone] 03/01/2024 8:00 EDT Appointment [facility] Radiology Nuclear Medicine and PET - [address] [phone] 03/01/2024 9:30 EDT Appointment [facility] Radiology Nuclear Medicine and PET - [address] [address] documented as of this encounter Visit Diagnoses Not on filedocumented in this encounter
--- OUTSIDE RECORDS SUMMARY | 2023-12-16 00:36 | XMS_ITS | Encounter Summary ---
Author Organization [facility] Address [address] [place] [address] Care Team Providers Care Blood Collector Name Role Phone Unavailable Primary Care Provider Unavailabl e Reason for Visit * Reason Onset Date Comments Medication Questions 10/09/2020 Encounter Details Date Type Department Care Team (Late st Contact Info) Description 10/09/[address] [facility] Adult Primary Care - [address] [phone] Tonja Alejandro PA-C [address] [place] [address] [address] [place] [phone] Medication Questions Social History Tobacco Use Types Packs/Day Years [...] Dispensed Refills Start Date End Da te mirtazapine (REMERON) 15 mg tablet Take 1 Tab by mouth at bedtime. 30 Tab 2 10/10/2020 03/27/2021 documented in this encounter Miscellaneous Notes * Telephone Encounter - Tonja Alejandro PA-C - 10/21/2020 7544 EDT See previous notes. Spoke with patient regarding this. * Telephone Encounter - Tonja Alejandro PA-C - 10/10/2020 1327 EDT I called and left a message for Stella. Haldol and reglan have a serious interaction so I would advise that she stop the haldol. We can try mirtazapine 15mg at bedtime. This should help with appetite and should help her sleep aswell. * Telephone Encounter - Karen Trujillo - 10/09/2020 1657 EDT Patient would like to know if she can get a refill on Haldol as this is the ida thing that works for her nausea and her sleeping. documented in this encounter Plan of Treatment Upcoming Encounters Date Type Department Care Team (Late st Contact Info) Description 02/21/2024 9:45 EDT Office Visit [facility] Adult Primary Care - [address] [phone] Carrington Calderon MD [address] [phone] 02/27/2024 8:[address] [facility] Sleep Program - [address] [address] Rn, Sleep 02/29/2024 10:30 EDT Appointment [facility] Radiology Nuclear Medicine and PET - [address] [address] 02/29/2024 14:30 EDT Appointment [facility] Radiology Nuclear Medicine and PET - [address] [address] 03/01/2024 8:00 EDT Appointment [facility] Radiology Nuclear Medicine and PET - [address] [address] 03/01/2024 9:30 EDT Appointment [facility] Radiology Nuclear Medicine and PET - [address] [address] documented as of this encounter Visit Diagnoses Not on filedocumented in this encounter
--- OUTSIDE RECORDS SUMMARY | 2023-12-16 00:36 | XMS_ITS | Encounter Summary ---
Author Organization [facility] Address [address] [place] [address] Care Team Providers Care Process Improvement Specialist Name Role Phone Unavailable Primary Care Provider Unavailabl e Reason for Visit * Reason Comments Emesis Pt arrives to triage endorsing nausea since yesterday, emesis all day today. Endorses abd pain. Per Fermin, pt more lethargic and confused. Pt not answering many quesyions in triage. Tachy, otherwise VSS, FS 306. Has hs of DM and gastroperesis . Endorses marijuana daily. Encounter Details Date Type Department Care Team (Late st Contact Info) Description 12/06/2020 21:17 EDT - 12/07/2020 1:52 EDT Emergency [facility] Emergency Department - [address] [address] Fran Barbosa MD [address] [place] [address], [address] [place] [address] Andrés Garcia MD [address] [place] [phone] Nausea and vomiting, intractability of vomiting not specified, unspecified vomiting type (Primary Dx) Discharge Disposition: [...] 21:16 EDT documented as of this encounter Last Filed Vital Signs Vital Sign Reading Time Taken Comments Blood Pressure 112/76 12/07/2020135 EDT Pulse 89 12/07/2020 013 EDT Temperature 37.1 ??C (98.7 ??F) 12/07/2020 013 EDT Respiratory Rate 16 12/07/2020135 EDT Oxygen Saturation 98% 12/07/2020 013 EDT Inhaled Oxygen Concentration - - Weight 95.3 kg (210 lb) 12/06/20202115 EDT Height - - Body Mass Index [...] this encounter Discharge Instructions * Discharge Instructions* Andrés Garcia MD - 12/07/2020 0:58 EDT Drink plenty of fluids to stay well-hydrated. Continue regular medications. Follow up with PCP. Return to the Emergency Department (ED) if your condition worsens, does not improve as expected, orother new concerns arise. Specifically return if you have new or uncontrolled pain, high fever, difficulty breathing, vomiting and unable to keep down fluids or medications, or any other concerns. * Attachments The following attachments cannot be sent through Care Everywhere. * Nausea and Vomiting (Greenlandic) documented in this encounter Medications at Time [...] VIGNESH 2 READER) misc 1 Device by [facility] (non-drug; combo route) route continuous. 1 Each 10/01/2020 05/21/2022 flash glucose sensor (FREESTYLE VIGNESH 2 SENSOR) kit 1 Device by [facility] (non-drug; combo route) route continuous. 6 Kit [...] 12/04/2019 12/21/2021 insulin pen needles 31G x /16Indications:Type 2 diabetes mellitus with hyperglycemia, with long-term current use of insulin ([facility]) Use 1 pen needle as directed [...] Max: 1.5 mg 30 Tablet 12/05/2020 12/31/2020 metoclopramide HCl (REGLAN) 10 mg tablet Take [...] Code Departure Means Destination Home or Self Nursing Home documented in this encounter ED Notes * Andrés Garcia MD - 12/07/2020 0105 EDT I, Chrystal Brown, am scribing for Andrés Garcia MD while he/she is personally performing the service. Chrystal Brown 12/07/2020 1:05 This documentation is recorded by Chrystal Brown acting as Scribe under the direction and presence of Andrés Garcia MD. Andrés Garcia MD: I personally performed the services recorded by the scribe in my presence. I confirm the scribe's documentation has been reviewed by me to accurately and completely record my work, treatment, procedures, and medical decision making. Cristy Luo is a 35 y.o. female with a history of T2DM and gastroparesis who presents to the ED with nausea and vomiting. The patient states that beginning this morning (12/06) she began havingfrequent episodes have emesis that have been consistent since their onset. The patient's states that she has been unable to tolerate any PO intake or fluids. Care and work-up prior to sign out includes labs significant for glucose of 304, WBC of 14.54, creatinine of 0.45, and a beta hydroxybutyrate of 2.0, EKG which was normal and medication administration. I assumed care of patient from Fran Barbosa MD with repeat labs and medication completion pending. After I assumed care the patient had: Repeat metabolic panel was normal with 4+ ketones in the UA. 2345: Patient was treated with 1L LR IV. 0021: Patient was treated with 5 units regular insulin injection. 0057: Patient states that she is feeling much better and is requesting discharge. She tolerated a PO challenge. Repeat metabolic panel looked improved so I am comfortable with discharge at this time.I instructed the patient to follow-up with her PCP to improve her management of her diabetes and return to the ED for any new concerns. Prior to discharge usual and customary precautions were reviewed with the patient and/or family including follow-up instructions and reasons to return to the Emergency Department if condition worsens, does not improve as expected, or other new concerns arise. Final diagnoses: Nausea and vomiting, intractability of vomiting not specified, unspecified vomiting type This documentation is recorded by Chrystal Brown acting as Scribe under the direction and presence of Andrés Garcia MD. Andrés Garcia MD: I personally performed the services recorded by the scribe in my presence. I confirm the scribe's documentation has been reviewed by me to accurately and completely record my work, treatment, procedures, and medical decision making. * Brenda Irby - 12/07/2020 0025 EDT I, BRENDA IRBY, notified Dr Garcia of 4 + ketones on 12/07/2020 at 0026. * Megha Dc RN - 12/06/20208 EDT 22:08 Pt arrives to ED via walk-in from home with c/o NV since this morning. Pt's reports pt withhx gastroparesis. On arrival, pt responsive to sternal rub. Then opens eyes and answers questions appropriately. Pt with episode of emesis 10 minutes after arrival, emesis watery in nature. Pt able to state she has been trying to stay hydrated with water. PIV placed. Pt reports sternal chest pain, EKG obtained and shown to MD Barbosa. Pt on full cardiac and SpO2 monitoring. Fluids and medicationsgiven as per AUG. Pt reports hx DM, sugar in 300s at triage. Also reports daily marijuana use, reports pt worked up for hyperemesis cannabis and that this is not what it is. Resp even and un labored. Pt aware of need for urine sample. 23:47 Additional 2L LR infusing. Pending verification on insulin from pharmacy. No acute distress noted. Resp even and unlabored. Pt reminded of need for urine sample. 0:23 Pt ambulated to bathroom with steady gait. Urine sample collected. Reports good effect with medications, I feel better and think I want to go home now. 3rd liter LR continuing to infuse. VSS on room air. 5 units of insulin given as per MAR. Pt speaking in full sentences. Resp even and unlabored. No acute distress noted. Pending results and disposition. 0:28 MD Garcia made aware of +4 ketones in pt's urine. * Fran Barbosa MD - 12/06/20202135 EDT DOS: 12/06/2020 Scribe Attestation: This documentation is recorded by Carole Patton acting as Scribe under the direction and presence of Fran Barbosa MD. Fran Barbosa MD: I personally performed the services recorded by the scribe in my presence. Iconfirm the scribe's documentation has been reviewed by me to accurately and completely record my work, treatment, procedures, and medical decision making. Chief Complaint Chief Complaint Patient presents with ??? Emesis Pt arrives to triage endorsing nausea since yesterday, emesis all day today. Endorses abd pain. Perhusbenito Christensen, pt more lethargic and confused. Pt not answering many quesyions in triage. Tachy, otherwise VSS, FS 306. Has hs of DM and gastroperesis . Endorses marijuana daily. HPI Cristy Luo is a pleasant 35 y.o. female who presents to the ED today with a chief complaint of emesis. The patient has past medical history significant for type II diabetes, gastroparesis, and daily marijuana. Patient presents to the ED with complaints of a prolonged period of emesis that started yesterday morning. Her reports that she is disoriented and can not intake solids or liquids PO. These episodes are not abnormal for Stella. She is noted by her to visit the ED for an episode about once a month. He says that she generally will start to feel better upon treatment in the ED, but when they return home she starts to feel worse causing her to return to the ED. She has been using marijuana lugo, which has been a daily habit for a long time according to her . Patient denies fever, chest pain, or SOB. History was provided by: patient, patient's medical record and patient's . Patient's pertinent PMH, FH, and SH were reviewed and updated PRN. ROS Review of Systems Constitutional: Negative for fever. Respiratory: Negative for shortness of breath. Cardiovascular: Negative for chest pain. Gastrointestinal: Positive for nausea and vomiting. Psychiatric/Behavioral: Positive for confusion. All other systems reviewed and are negative. The patient???s past medical, family, and social history was reviewed and updated as needed. Allergies Allergen Reactions ??? Citalopram Other (See Comments) suicidal ideation, approx 2012 ??? Other - See Comments Swelling of throat pomergrante ??? Advil [Ibuprofen] Hives Physical Exam Vital Signs Vitals Reassessment?: Yes Temp: 36.9 ??C (98.5 ??F) Temp src: Oral Pulse: 104 Heart Rate: (!) 115 BPM Resp: 16 SpO2: 97 % BP: 130/87 BP Device: BP Machine Nunez Agitation Sedation Scale: - 1 O2 Device: None (Room air) Physical Exam Vitals and nursing note reviewed. Constitutional: Appearance: She is well-developed. She is ill-appearing. HENT: Mouth/Throat: Mouth: Mucous membranes are dry. Eyes: General: No scleral icterus. Extraocular Movements: Extraocular movements intact. Pupils: Pupils are equal, round, and reactive to light. Cardiovascular: Rate and Rhythm: Regular rhythm. Tachycardia present. Heart sounds: Normal heart sounds. Pulmonary: Effort: Pulmonary effort is normal. Breath sounds: Normal breath sounds. Abdominal: Palpations: Abdomen is soft. Tenderness: There is no abdominal tenderness. There is no guarding. Musculoskeletal: General: Normal range of motion. Cervical back: Normal range of motion and neck supple. Skin: General: Skin is warm and dry. Findings: No rash. Neurological: Mental Status: She is oriented to person, place, and time. She is lethargic. Psychiatric: Speech: Speech is delayed. Behavior: Behavior is slowed. Comments: Slightly somnolent, but answered questions appropriately. Laboratory Results Labs were reviewed independently and contemporaneously by me. Patient had labs that were reviewed independently by myself, significant for WBC leucocytosis 14.54baseline, electrolytes are normal, glucose 288. Naion gap was 19. LFTs and Lipase normal. BHOB 2.0 slightly elevated. Procedures Procedures ED Course A medical screening was performed. The patient is a 35 y.o. female with a history of type II diabetes, gastroparesis, and daily marijuana who presents to the ED with emesis that started yesterday morning. Her notes that she isprogressively more disoriented. Physical exam was significant for tachycardia, slightly somnolent, slow to respond, but answered questions appropriatly, dry mucous membranes. Differential diagnosis includes but is not limited to nausea and vomiting, hyperemesis cannabis syndrome, dehydration, DKA, or Gastroparesis. The EKG was independently reviewed and interpreted by me. Patient has a normal sinus rhythm of 86, with a non specific t wave abnormality. 21:49 Patient was given Reglan 10mg and Denadryl 25mg intravenously 21:53 Patient was hydrated with Bolus 1000mL intravenously 22:38 Reevaluated patient who was observed to have improved. 23:43 Patient was hydrated with Bolus 1000mL intravenously Patient signed out to Dr. Garcia at change of shift pending completion of evaluation and treatment. Case was discussed and care transferred. Final diagnoses: Nausea and vomiting, intractability of vomiting not specified, unspecified vomiting type [facility] Number of Diagnoses or Management Options Nausea and vomiting, intractability of vomiting not specified, unspecified vomiting type Diagnosis management comments: 4 Amount and/or Complexity of Data Reviewed Clinical lab tests: ordered and reviewed Tests in the medicine section of CPT??: reviewed and ordered Obtain history from someone other than the patient: yes Patient Progress Patient progress: stable Disposition No disposition on file The patient's pain was managed to an adequate level weighing risk vs. Benefit of further medications. At the end of my care of this patient, the patient's pain was 2 on a zero to ten scale. Any further pain treatment will be at the discretion of the provider following up with the patient based on their clinical assessment. The patient's condition at the end of my care: Improved documented in this encounter Plan of Treatment Upcoming Encounters Date Type Department Care Team (Late st Contact Info) Description 02/21/2024 9:45 EDT Office Visit [facility] Adult Primary Care - [address] [id number] Carrington Calderon MD [address] [place] [phone] 02/27/2024 8:30 EDT Telemedicine [facility] Sleep Program - [address] [address] Rn, Sleep 02/29/2024 10:30 EDT Appointment [facility] Radiology Nuclear Medicine and PET - [address] [address] 02/29/2024 14:30 EDT Appointment [facility] Radiology Nuclear Medicine and PET [address] [id number] 03/01/2024 8:00 EDT Appointment [facility] Radiology Nuclear Medicine and PET - [address] [address] 03/01/2024 9:30 EDT Appointment [facility] Radiology Nuclear Medicine and PET - [address] [address] documented as of this encounter Procedures Procedure Name Priority Date/Time Associated Diagnosis Comments ECG REPORT - SCANNED 12/11/2020 16:37 EDT POCT URINE DIPSTICK, CLINITEK STAT 12/07/2020 0:20 EDT POCT TEST, CLINITEK STAT 12/07/2020 0:08 EDT POCT CSN BARCODE URINE PREG TEST STAT 12/07/2020 0:06 EDT POCT TEST, CLINITEK ORDER STAT 12/07/2020 0:06 EDT POCT CSN BARCODE URINE DIPSTICK STAT 12/07/2020 0:06 EDT POCT URINE CLINITEK (DIPSTICK) - DOES NOT REFLEX STAT 12/07/2020 0:06 EDT BASIC METABOLIC PANEL (BMP) STAT 12/06/2020 23:42 EDT EKG 12-LEAD STAT 12/06/2020 21:43 EDT HOLD SST STAT 12/06/2020 21:30 EDT HOLD LAVENDER TOP STAT 12/06/2020 21: 30 EDT HOLD GREEN TOP STAT 12/06/2020 21:30 EDT HOLD BLUE TOP STAT 12/06/2020 21:30 EDT BETA HYDROXYBUTYRATE STAT Add-on 12/06/2020 21:30 EDT COMPLETE BLOOD COUNT AND DIFFERENTIAL STAT Add-on 12/06/2020 21:30 EDT BLOOD BANK HOLD STAT 12/06/2020 21:30 EDT LIPASE STAT Add-on 12/06/2020 21:30 EDT COMPREHENSIVE METABOLIC PANEL (CMP) STAT Add-on 12/06/2020 21:30 EDT POCT GLUCOSE, INTERFACED Routine 12/06/2020 21:13 EDT documented in this encounter Results * ECG REPORT - SCANNED (12/11/2020 16:37 EDT) 12/11/2020 16:3 7 EDT Scan 2 Technical Agronomist PROCEDURE/MINOR BRAULIO GICAL ORDERABLES * (ABNORMAL) POCT URINE DIPSTICK, CLINITEK (12/07/2020 0:20 EDT) Color, UA Yellow Yellow 12/07/2020 0:26 [facility] Clarity, UA Clear Clear 12/07/2020 0:26 [facility] Glucose, UA 2+(A) Negative mg/dL 12/07/2020 0:26 [facility] Bilirubin, UA Negative Negative 12/07/2020 0:26 [facility] Ketones, UA 4+(AA) Negative mg/dL 12/07/2020 0:26 [facility] Specific [place], Urine 1.025 1.001 - 1.035 12/07/2020 0:26 [facility] Blood, UA Negative Negative 12/07/2020 0:26 [facility] pH, UA 7.0 <=8 12/07/2020 0:26 [facility] Protein, UA Negative Negative mg/dL 12/07/2020 0:26 [facility] Urobilinogen, UA 0.2 0.2 - 1.0 EU/dL 12/07/2020 0:26 [facility] Nitrite, UA Negative Negative 12/07/2020 0:26 EDT [facility] Leuk Esterase Negative Negative 12/07/2020 0:26 EDT [facility] HN LAB COMMENT (CLINITEK, UR) Test performed at Emergency Department 12/07/2020 0:26 EDT [facility] Urine URINE SPECIMEN COLLECTION, CLEAN CATCH / Unknown 12/07/2020 0:20 EDT 12/07/2020 0:26 EDT Fran Barbosa MD POINT OF CARE TEST ORDERABLES Performing Organization Address [facility] de Phone Number [facility] [address] [place] [address] * POCT TEST, CLINITEK (12/07/2020 0:08 EDT) [facility] UPT Result Negative Negative 12/07/2020 0:14 EDT [facility] HN LAB COMMENT (CLINITEK, UPT) Test performed at Emergency Department 12/07/2020 0:14 EDT [facility] Comment:False negative resul ts may occur in women who are beyond 5-8 weeks gestation. Diagnosis of should be based on a correlation of test results with typical clinical signs and symptoms. Urine URINE SPECIMEN COLLECTION, CLEAN CATCH / Unknown 12/07/2020 0:08 EDT 12/07/2020 0:14 EDT Fran Barbosa MD POINT OF CARE TEST ORDERABLES Performing Organization Address [facility] Co de Phone Number [facility] [address] [place] [address] * POCT CSN BARCODE URINE PREG TEST (12/07/2020 0:06 EDT) Urine URINE SPECIMEN COLLECTION, CLEAN CATCH / Unknown Urine Collect / Unknown 12/07/2020 0:06 EDT 12/07/2020 0:06 EDT Fran Barbosa MD LAB INFO SERV ICE AND SUPPORT & PHONE RESULT [facility] [address] [place] [address] * POCT CSN BARCODE URINE DIPSTICK (12/07/2020 0:06 EDT) Urine URINE SPECIMEN COLLECTION, CLEAN CATCH / Unknown Urine Collect / Unknown 12/07/2020 0:06 EDT 12/07/2020 0:06 EDT Fran Barbosa MD LAB INFO SERV ICE AND SUPPORT & PHONE RESULT [facility] [address] [place] [address] * (ABNORMAL) BASIC METABOLIC PANEL (BMP) (12/06/2020 23:42 EDT) Sodium 141 136 - 145 mEq/L 12/07/2020 0:08 [facility] Potassium 4.0 3.5 - 5.0 mEq/L 12/07/2020 0:08 [facility] Chloride 99 96 - 110 mEq/L 12/07/2020 0:08 [facility] CO2 Total 29 22 - 32 mEq/L 12/07/2020 0:08 [facility] Glucose 248(H) 70 - 100 mg/dL 12/07/2020 0:08 [facility] Calcium 9.8 8.5 - 10.5 mg/dL 12/07/2020 0:08 [facility] Calculated Calcium 9.9 8.5 - 10.5 mg/dL 12/07/2020 0:08 [facility] BUN 11 10 - 26 mg/dL 12/07/2020 0:08 [facility] Creatinine 0.45(L) 0.52 - 1.04 mg/dL 12/07/2020 0:08 [facility] eGFR 130 >60 mL/min/1.7 3m2 12/07/2020 0:08 [facility] Comment:eGFR calculated gil curtis CKD-EPI equation for non- Americans. Multiply eGFR by 1.16 for patients. Blood VENOUS BLOOD / Unknown Venipuncture / Unknown 12/06/2020 23:42 EDT 12/06/2020 23:45 EDT Fran Barbosa MD CHEMISTRY & B LOOD GAS ORDERABLES Performing Organization Address [facility]/State/ZIP Co de Phone Number [facility] [address] [place] [address] * EKG 12-LEAD (12/06/2020 21:43 EDT) 12/06/2020 21:4 3 EDT Narrative [facility] EKG - 12/11/2020 16:34 EDT ?[facility] Emergency ? Test Date: ?2020-12-06 Pat Name: ? CRISTY LUO ?Department: ?? ED ? Room: ? AC07 Gender: ? Female ? 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 : ?1985 ? Requested By: DARÍO GAYLE Order Number: [id number] ? Sammie MARTÍNEZ: ?? TRACE SHAUN MARTÍNEZ ? Measurements Intervals ?Cross ? Rate: ? 86 ? P: ?8 PA: ? 132 ?QRS: ?15 QRSD: ? 92 ? T: ?-8 QT: ? 347 ? QTc: ?417 ? Interpretive Statements SINUS RHYTHM WITH MARKED SINUS ARRHYTHMIA NONSPECIFIC T-WAVE ABNORMALITY Compared to ECG 10/02/2020 19:04:59 Sinus arrhythmia now prsent I reviewed the tracing and have either agreed or edited the findings in this report. Electronically Signed On 12-11-2020 16:34:31 EDT by CAROLINA NOYOLA MD. 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 Electronically Signed On 12-11-2020 16:34:31 EDT by CAROLINA RICHTER. Fran Barbosa MD CARDIAC ECG O RDERABLES Performing Organization Address City/[facility] Co de Phone Number [facility] EKG * (ABNORMAL) BETA HYDROXYBUTYRATE (12/06/2020 21:30 EDT) Beta Hydroxybutyrate 2.0(H) <0.4 mmol/L 12/06/2020 22:19 EDT [facility] Blood VENOUS BLOOD / Unknown Venipuncture / Unknown 12/06/2020 21:30 EDT 12/06/2020 21:35 EDT Fran Barbosa MD CHEMISTRY & B LOOD GAS ORDERABLES Performing Organization Address [facility] Co de Phone Number [facility] [address] [place] [address] * LIPASE (12/06/2020 21:30 EDT) Lipase 97 <251 U/L 12/06/2020 22:06 EDT [facility] Blood VENOUS BLOOD / Unknown Venipuncture / Unknown 12/06/2020 21:30 EDT 12/06/2020 21:35 EDT Fran Barbosa MD CHEMISTRY & B LOOD GAS ORDERABLES Performing Organization Address [facility] de Phone Number [facility] [address] [place] [address] * (ABNORMAL) COMPREHENSIVE METABOLIC PANEL (CMP) (12/06/2020 21:30 EDT) Sodium 142 136 - 145 mEq/L 12/06/2020 22:06 EDT [facility] Potassium 3.8 3.5 - 5.0 mEq/L 12/06/2020 22:06 EDT [facility] Chloride 97 96 - 110 mEq/L 12/06/2020 22:06 [facility] CO2 Total 26 22 - 32 mEq/L 12/06/2020 22:06 [facility] Glucose 288(H) 70 - 100 mg/dL 12/06/2020 22:06 [facility] BUN 12 10 - 26 mg/dL 12/06/2020 22:06 [facility] Creatinine 0.50(L) 0.52 - 1.04 mg/dL 12/06/2020 22:06 [facility] eGFR 126 >60 mL/min/1.7 3m2 12/06/2020 22:06 [facility] Comment:eGFR calculated gil curtis CKD-EPI equation for non- Americans. Multiply eGFR by 1.16 for patients. Total Protein 7.7 6.3 - 8.2 g/dL 12/06/2020 22:06 [facility] Albumin 4.9 3.4 - 4.9 g/dL 12/06/2020 22:06 [facility] Alkaline Phosphatase 105 38 - 126 U/L 12/06/2020 22:06 [facility] AST 22 15 - 46 U/L 12/06/2020 22:06 [facility] ALT 21 <35 U/L 12/06/2020 22:06 [facility] Bilirubin, Total <0.5 <1.4 mg/dL 12/07/19 22:06 [facility] Calcium 10.6(H) 8.5 - 10.5 mg/dL 12/06/2020 22:06 [facility] Calculated Calcium 9.9 8.5 - 10.5 mg/dL 12/06/2020 22:06 [facility] Blood VENOUS BLOOD / Unknown Venipuncture / Unknown 12/06/2020 21:30 EDT 12/06/2020 21:35 EDT Fran Barbosa MD CHEMISTRY & B LOOD GAS ORDERABLES [facility] [address] [place] [address] * (ABNORMAL) COMPLETE BLOOD COUNT AND DIFFERENTIAL (12/06/2020 21:30 EDT) WBC 14.54(H) 4.00 - 12.40 K/cmm 12/06/2020 21:47 [facility] RBC 4.97 3.86 - 5.04 M/cmm 12/06/2020 21:47 [facility] Hemoglobin 15.5(H) 11.6 - 15.2 gm/dL 12/06/2020 21:47 [facility] HCT 42.8 34.9 - 44.4 % 12/06/2020 21:47 [facility] MCV 86 81 - 98 fl 12/06/2020 21:47 [facility] MCH 31.2 26.7 - 33.3 pg 12/06/2020 21:47 [facility] MCHC 36.2(H) 32.1 - 35.9 gm/dL 12/06/2020 21:47 [facility] RDW-CV 12.2 <14.7 % 12/06/2020 21:47 [facility] RDW-SD 38.5 <50.4 fl 12/06/2020 21:47 [facility] PLT 383(H) 141 - 377 K/cmm 12/06/2020 21:47 [facility] MPV 9.7 9.5 - 12.7 fl 12/06/2020 21:47 [facility] % Neutrophils 84.9 % 12/06/2020 21:47 [facility] % Lymphocytes 10.7 % 12/06/2020 21:47 [facility] % Monocytes 4.0 % 12/06/2020 21:47 [facility] % Eosinophils 0.0 % 12/06/2020 21:47 [facility] % Basophils 0.1 % 12/06/2020 21:47 [facility] % Immature Grans 0.3 % 12/07/19 21:47 EDT [facility] Absolute Neutrophils 12.34(H) 2.20 - 8.85 K/cmm 12/06/2020 21:47 T [facility] Absolute Lymphocytes 1.55 1.09 - 3.30 K/cmm 12/06/2020 21:47 EDT [facility] Absolute Monocytes 0.58 0.10 - 0.80 K/cmm 12/06/2020 21:47 T [facility] Absolute Eosinophils 0.00(L) 0.03 - 0.61 K/cmm 12/06/2020 21:47 [facility] ABS Basophils 0.02 0.01 - 0.11 K/cmm 12/06/2020 21:47 [facility] Absolute Immature Grans 0.05 0.00 - 0.06 K/cmm 12/06/2020 21:47 T [facility] Type of Differential: Auto 12/06/2020 21:47 EDT [facility] Blood VENOUS BLOOD / Unknown Venipuncture / Unknown 12/06/2020 21:30 EDT 12/06/2020 21:35 EDT Fran Barbosa MD PACKAGES & DN A PROBE ORDERABLES Performing Organization Address City/[facility]/ZIP Co de Phone Number [facility] [address] [place] [address] * BLOOD BANK HOLD (12/06/2020 21:30 EDT) Hold BB Spec will exp at 23:59, 3 days from collect date 12/06/2020 21:54 EDT [facility] Blood VENOUS BLOOD / Unknown Venipuncture / Unknown 12/06/2020 21:30 EDT 12/06/2020 21:37 EDT Fran Barbosa MD BLOOD BANK TE STS Performing Organization Address City/[facility] Co de Phone Number [facility] [address] [place] [address] * HOLD SST (12/06/2020 21:30 EDT) Hold Hold 12/06/2020 22:45 EDT [facility] Blood VENOUS BLOOD / Unknown Venipuncture / Unknown 12/06/2020 21:30 EDT 12/06/2020 21:35 EDT Fran Barbosa MD LAB INFO SERV ICE AND SUPPORT & PHONE RESULT [facility] [address] [place] [address] * HOLD LAVENDER TOP (12/06/2020 21:30 EDT) Hold Hold 12/06/2020 22:45 EDT [facility] Blood VENOUS BLOOD / Unknown Venipuncture / Unknown 12/06/2020 21:30 EDT 12/06/2020 21:35 EDT Fran Barbosa MD LAB INFO SERV ICE AND SUPPORT & PHONE RESULT [facility] [address] [place] [address] * HOLD GREEN TOP (12/06/2020 21:30 EDT) Hold Hold 12/06/2020 22:45 EDT [facility] Blood VENOUS BLOOD / Unknown Venipuncture / Unknown 12/06/2020 21:30 EDT 12/06/2020 21:35 EDT Fran Barbosa MD LAB INFO SERV ICE AND SUPPORT & PHONE RESULT Performing Organization Address City/[facility]/ZIP Co de Phone Number [facility] [address] [place] [address] * HOLD BLUE TOP (12/06/2020 21:30 EDT) Hold Hold 12/06/2020 22:45 EDT [facility] Blood VENOUS BLOOD / Unknown Venipuncture / Unknown 12/06/2020 21:30 EDT 12/06/2020 21:35 EDT Fran Barbosa MD LAB INFO SERV ICE AND SUPPORT & PHONE RESULT Performing Organization Address [facility] Co de Phone Number [facility] [address] [place] [address] * (ABNORMAL) POCT GLUCOSE, INTERFACED (12/06/2020 21:13 EDT) Glucose, POC 304(H) 70 - 100 mg/dL 12/06/2020 21:17 EDT [facility] HN LAB POC COMMENT (GLUCOSE) Test Performed by Nursing Services 12/06/2020 21:17 EDT [facility] Blood CAPILLARY BLOOD / Unknown 12/06/2020 21:13 EDT 12/06/2020 21:17 EDT Provider Unknown POINT OF CARE TEST O RDERABLES Performing Organization Address [facility] Co de Phone Number [facility] [address] [place] [address] documented in this encounter Visit Diagnoses Diagnosis Nausea and vomiting, intractability of vomiting not specified, unspecified vomiting type- Primary documented in this encounter Administered Medications Inactive Administered Medications - up to 3 most recent administrations Medication Order MAR Action Action Date Dose Rate Site diphenhydrAMINE (BENADRYL) injection 25 mg 25 mg, intravenous, NOW X1, 1 dose, On 12/06/20 at 2145, STAT Given 12/06/2020 21:49 EDT 25 mg insulin regular (NOVOLIN R) injection 5 Units 5 Units, subcutaneous, NOW X1, 1 dose, On 12/07/20 at 0000 Given 12/07/2020 0:21 EDT 5 Units lactated ringers BOLUS 1,000 mL 1,000 mL, intravenous, NOW X1, 1 dose, On 12/06/20 at 2145, STAT New Bag 12/06/2020 21:48 EDT 1,000 mL lactated ringers BOLUS 1,000 mL 1,000 mL, intravenous, NOW X1, 1 dose, On 12/06/20 at 2245, STAT New Bag 12/06/2020 22:50 EDT 1,000 mL lactated ringers BOLUS 1,000 mL 1,000 mL, intravenous, NOW X1, 1 dose, On 12/06/20 at 2330, STAT New Bag 12/06/2020 23:45 EDT 1,000 mL lidocaine (PF) 10 mg/mL (1 %) injection 2 mg 2 mg, intradermal, PRN, 4 doses, Starting on 12/06/20 at 2129, Until 12/07/20 at 0352, peripheral intravenous catheter placement, STAT metoclopramide (REGLAN) injection 10 mg 10 mg, intravenous, NOW X1, 1 dose, On 12/06/20 at 2145, STAT Given 12/06/2020 21:49 EDT 10 mg ondansetron (PF) (ZOFRAN) injection 4 mg 4 mg, intravenous, NOW X1, 1 dose, On 12/07/20 at 0100, STAT Given 12/07/2020 1:37 EDT 4 mg documented in this encounter Active and Recently Administered Medications Times are shown in EDT. Scheduled Medication Order 12/05/2020 12/06/2020 12/07/2020 diphenhydrAMINE (BENADRYL) injection 25 mg (COMPLETED) 25 mg, intravenous, NOW X1, 1 dose, On 12/06/20 at 2145, STAT 2149 (Given - Provider: Megha Dc RN) insulin regular (NOVOLIN R) injection 5 Units (COMPLETED) 5 Units, subcutaneous, NOW X1, 1 dose, On 12/07/20 at 0000 0021 (Given - Provid er: Megha Dc RN) lactated ringers BOLUS 1,000 mL (COMPLETED) 1,000 mL, intravenous, NOW X1, 1 dose, On 12/06/20 at 2145, STAT 2148 (New Bag - Provider: Megha Dc RN)2153 (Completed - Provider: Megha Dc RN) lactated ringers BOLUS 1,000 mL (COMPLETED) 1,000 mL, intravenous, NOW X1, 1 dose, On 12/06/20 at 2245, STAT 2250 (New Bag - Provider: Megha Dc RN)2343 (Completed - Provider: Leidy Martínez RN) lactated ringers BOLUS 1,000 mL (COMPLETED) 1,000 mL, intravenous, NOW X1, 1 dose, On 12/06/20 at 2330, STAT 2345 (New Bag - Provider: Leidy Martínez RN) 0137 (Completed - Provider: Megha Dc RN) metoclopramide (REGLAN) injection 10 mg (COMPLETED) 10 mg, intravenous, NOW X1, 1 dose, On 12/06/20 at 2145, STAT 2149 (Given - Provider: Megha Dc RN) ondansetron (PF) (ZOFRAN) injection 4 mg (COMPLETED) 4 mg, intravenous, NOW X1, 1 dose, On 12/07/20 at 0100, STAT 0137 (Given - Provid er: Megha Dc RN) PRN Medication Order 12/05/2020 12/06/2020 12/07/2020 lidocaine (PF) 10 mg/mL (1 %) injection 2 mg 2 mg, intradermal, PRN, 4 doses, Starting on 12/06/20 at 2129, Until 12/07/20 at 0352, peripheral intravenous catheter placement, STAT documented in this encounter Orders Medications Ordered That Stan ht Not Have Been Administered Count Last Ordered Date First Ordered Date lidocaine (PF) 10 mg/mL (1 % ) injection 2 mg 1 12/06/2020 documented in this encounter
--- OUTSIDE RECORDS SUMMARY | 2023-12-16 00:36 | XMS_ITS | Encounter Summary ---
Author Organization [facility] Address [address] [place] [address] Care Team Providers Care Occupational Therapy Asst Name Role Phone Unavailable Primary Care Provider Unavailabl e Reason for Referral * PT/OT/ST (Routine) - Closed Specialty Diagnoses / Procedures Referred By Contac t Referred To Contact Diagnoses Acute right-sided low back pain with sciatica, sciatica laterality unspecified Moshe Ferrer MD [address] [place] [phone] Gay Hyman, PT [id number] [place] [address] Referral ID Status Reason Start Date Expiration Date V isits Requested Visits Authorized [id number] Closed Specialty Services Required 10/22/2020 1 1 Question Answer Reason for Request: acute on chronic low back pain, history of emotional trauma Reason for Visit * Reason Comments Back Pain right lower back kuldeep n radiating down right lower limb. Encounter Details Date Type Department Care Team (Late st Contact Info) Description 10/22/2020 10:00 EDT Office Visit [facility] Adult Primary [facility] - [place] [address] [place], [place] [phone] Linnea Patel MD [address] [place] [id number] Acute right-sided low back pain with sciatica, sciatica laterality unspecified (Primary Dx) Social History Tobacco Use Types [...] 10:18 EDT documented as of this encounter Last Filed Vital Signs Vital Sign Reading Time Taken Comments Blood Pressure 96/78 10/22/2020 1023 EDT Pulse 104 10/22/2020 1023 EDT Temperature 35.8 ??C (96.5 ??F) 10/22/2020 1023 EDT Respiratory Rate 16 10/22/2020 1023 EDT Oxygen Saturation - - Inhaled Oxygen Concentration - - Weight 90.7 kg (200 lb) 10/22/2020 1023 EDT per patient Height - - Body Mass Index 33.49 10/02/2020 2350 EDT documented in this encounter [...] te lidocaine 5 % (LIDODERM) 5 % patch Place 1 Patch onto the skin daily. Patch(es) may remain in place for up to 12 hours in any 24-hour period. 10 Patch 10/22/2020 03/27/2021 methocarbamoL (ROBAXIN) 500 mg tablet Take 2 Tabs by mouth 4 times daily for 10 days. 80 Tab 10/22/2020 11/01/2020 LORazepam (ATIVAN) 0.5 mg tablet Take 1 Tab by mouth 3 times daily as needed for up to 14 days for Anxiety. Daily Max: 1.5 mg 30 Tab 10/22/2020 12/05/2020 gabapentin (NEURONTIN) 100 mg capsule Take 1 Cap by mouth 2 times daily before breakfast and lunch. 60 Cap 5 10/22/2020 11/20/2020 documented in this encounter Progress Notes * Linnea Patel MD - 10/22/2020 1000 EDT [place] [facility] Patient Name: Cristy Luo Appointment Date: 10/22/20 Chief Complaint Patient presents with ??? Back Pain right lower back pain radiating down right lower limb. Assessment: Cristy Luo is a 35 y.o. female with past medical history of type 2 diabetes, gastroparesis, migraines, frequent marijuana use, status post salpingectomy 08/24 who presents today foracute on chronic low back pain. Differential includes herniated disc, paraspinous muscle strain or compression fracture. Although she does endorse sciatica it appears less likely herniated disc due to paraspinal muscle tenderness on the right side, although difficult to assess weakness due to pain or numbness and tingling in her feet given underlying neuropathy. Also less likely compression fracture because there is no spinal processes tenderness to palpation. No concern for cauda equina syndrome at this time given no numbness or tingling in the genital region or loss of bowel or bladder function/incontinence. We plan to treat with muscle relaxants, heat and ice packs, acetaminophen and physical therapy. If no improvement she was counseled to come back in, we could consider imaging, further work up. Plan: Cristy was seen today for back pain. Diagnoses and all orders for this visit: Acute right-sided low back pain with sciatica, sciatica laterality unspecified - AMB CONS/FOLLOW UP PHYSICAL THERAPY - methocarbamoL (ROBAXIN) 500 mg tablet; Take 2 Tabs by mouth 4 times daily for 10 days. - lidocaine 5 % (LIDODERM) 5 % patch; Place 1 Patch onto the skin daily. Patch(es) may remain in place for up to 12 hours in any 24-hour period. Other orders//refills - gabapentin (NEURONTIN) 100 mg capsule; Take 1 Cap by mouth 2 times daily before breakfast and lunch. - LORazepam (ATIVAN) 0.5 mg tablet; Take 1 Tab by mouth 3 times daily as needed for up to 14 days for Anxiety. Daily Max: 1.5 mg Patient Active Problem List Diagnosis ??? Migraine with aura and without status migrainosus, not intractable ??? Anxiety and depression ??? Type 2 diabetes mellitus (HCC-CMS) ??? Chronic left ear pain ??? Family history of rheumatoid arthritis ??? Cellulitis of great toe of left foot ??? Chronic midline low back pain without sciatica ??? Diabetic foot infection (HCC-CMS) ??? Diabetic foot ulcer (HCC-CMS) ??? Diabetic foot ulcer associated with diabetes mellitus due to underlying condition (HCC-CMS) ??? Osteomyelitis of great toe of left foot (HCC-CMS) ??? 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 (HCC-CMS) ??? Osteomyelitis of toe of left foot (HCC-CMS) ??? Type 2 diabetes mellitus with diabetic polyneuropathy, with long-term current use of insulin (HCC-CMS) ??? Hx of ectopic ??? Admission for sterilization ??? Gastroparesis ??? Intractable vomiting ??? Vomiting Subjective: Cristy Luo is a 35 y.o. female pw with acute on chronic low back pain. Has had back pain since her weight loss of around 300 lbs. Onset: 3-4 days ago sat up in bed felt a twinge, stood and felt her right leg give out Duration: constant pain Quality: burning, numbness, danyell horse x1000 Radiation, severity: radiates down the right leg, severe Palliating factors: ice and heating pad did help a little bit but not much, extra strength tylenol 4x this AM, standing is better, took zofran from associated nausea Provoking factors: transition from sitting to standing, walking, night time rolling over Associated symptoms: no fevers, some chills and nausea, no urine/stool accidents/incontinence, pressure relief with BMs. 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 Pertinent positives and negatives are noted in the HPI, all others are negative. Objective: BP 96/78 Pulse 104 Temp 35.8 ??C (96.5 ??F) (Tympanic) Resp 16 Wt 90.7 kg (200 lb) Comment:per patient BMI 33.49 kg/m?? General appearance: alert, cooperative, in moderate distress Skin: Skin color, temperature, turgor normal. No rashes or lesions HEENT: MMM, Sclera anicteric and non-injected Lungs: CTAB, Good air movement throughout Heart: RRR, nl. S1/S2 normal, No MRG Abdomen: Soft, NTND, nl BS Neurologic: AAOx3. Moving all extremities. Able to ambulate to exam chair with difficulty. Full strength bilateral lower extremities although notably exam limited due to pain. Lower Extremities: no swelling bilaterally, sensation diminished in feet bilaterally, normal temperature Back: straight leg raise test positive on right leg, significant right Paraspinous muscle tenderness, no spinal processes tenderness to palpation Labs: reviewed Medications: reviewed with patient. Imaging: no new imaging. Linnea Patel MD PGY1 10/22/20 Patient was staffed by Aba Ferrer MD 10/22/20 * Moshe Ferrer MD - 10/22/2020 1000 EDT Attestation statement: I discussed and examined Ms. Luo with LINNEA PATEL MD at the time of her visit on 10/22/2020. I spent a total of 10 minutes on the date of this encounter conferring with the resident, meeting the patient, reviewing documentation, and coordinating care. I agree with the plan of care documented in the resident's note. Moshe Ferrer MD [facility] full service supervisor documented in this encounter Plan of Treatment Upcoming Encounters Date Type Department Care Team (Late st Contact Info) Description 02/21/2024 9:45 EDT Office Visit [facility] Adult Primary Care - [address] [phone] Carrington Calderon MD [address] [place] [address] [address] [place] [phone] 02/27/2024 8:30 EDT Telemedicine [facility] Sleep Program - [address] [phone] Rn, Sleep 02/29/2024 10:30 EDT Appointment [facility] Radiology Nuclear Medicine and PET - [address] [phone] 02/29/2024 14:30 EDT Appointment [facility] Radiology Nuclear Medicine and PET [address] [phone] 03/01/2024 8:00 EDT Appointment [facility] Radiology Nuclear Medicine and PET - [address] [phone] 03/01/2024 9:30 EDT Appointment [facility] Radiology Nuclear Medicine and PET [address] [phone] Scheduled Referrals Name Type Priority Associated Diagnoses Orde r Schedule AMB CONS/FOLLOW UP PHYSICAL THERAPY Outpatient Referral Routine Acute right-sided low back pain with sciatica, sciatica laterality unspecified Ordered: 10/22/2020 documented as of this encounter Visit Diagnoses Diagnosis Acute right-sided low back pain with sciatica, sciatica laterality unspecified- Primary documented in this encounter Discontinued Medications Medication Sig Discontinue Reason Start Date End Da te gabapentin (NEURONTIN) 100 mg capsule Take 100 mg by mouth 2 times daily before breakfast and lunch. Reorder 10/22/2020 LORazepam (ATIVAN) 0.5 mg tablet Take 1 Tab by mouth 3 times daily as needed for up to 14 days for Anxiety. Daily Max: 1.5 mg Reorder 10/01/2020 10/22/2020 documented as of this encounter
--- OUTSIDE RECORDS SUMMARY | 2023-12-16 00:36 | XMS_ITS | Encounter Summary ---
Author Organization [facility] Address [address] [place] [address] Care Team Providers Care Mannequin Wig Maker Name Role Phone Carrington Calderon MD Primary Care Provi anders Reason for Visit * Reason Onset Date Comments Medications Refill 12/04/2020 Medications Refill 12/05/2020 Encounter Details Date Type Department Care Team (Late st Contact Info) Description 12/04/2020 Refill [facility] Adult Primary Care - [address] [phone] Tonja Alejandro PA-C [address] [place] [phone] Medications Refill; Medications Refill Social History Tobacco Use Types [...] twice daily) 90 capsule 2 12/04/2020 03/27/2021 documented in this encounter Miscellaneous Notes * Telephone Encounter - Eryn Gutierrez, MARCELO - 12/04/2020 1650 EDT Spoke with pharmacy. Gabapentin orders have been de-activated because of incorrect instructions. After chart review, 11/24/20 AVS visit notes Which instructions should I use? on Gabapentin. Will reorder both scripts and route to provider for review and approval * Telephone Encounter - Dayana Cosme - 12/04/2020 1621 EDT Medication(s) Requested: gabapentin (NEURONTIN) 300 mg capsule Preferred Pharmacy: 10.22.20 Is patient out of medication? Yes Last Refill Date: 10.22.20 Last Visit Date with Ordering Provider: 11.04.20 Next Non-Acute Visit Date Scheduled with Care Team: No. Dayana Cosme 12/04/2020 16:23 documented in this encounter Plan of Treatment Upcoming Encounters Date Type Department Care Team (Late st Contact Info) Description 02/21/2024 9:45 EDT Office Visit [facility] Adult Primary Care - [address] [phone] Carrington Calderon MD 1 [facility] [address] [place] [phone] 02/27/2024 8:30 EDT Telemedicine [facility] Sleep Program - [address] [phone] Rn, Sleep 02/29/2024 10:30 EDT Appointment [facility] Radiology Nuclear Medicine and PET - [address] [phone] 02/29/2024 14:30 EDT Appointment [facility] Radiology Nuclear Medicine and PET - [address] [phone] 03/01/2024 8:00 EDT Appointment [facility] Radiology Nuclear Medicine and PET - [address] [id number] 03/01/2024 9:30 EDT Appointment [facility] Radiology Nuclear Medicine and PET - [address] [phone] documented as of this encounter Visit Diagnoses Not on filedocumented in this encounter Discontinued Medications Medication Sig Discontinue Reason Start Date End Da te gabapentin (NEURONTIN) 300 mg capsule Take 1 Cap by mouth daily. Take 1 cap in the evening. (In addition to 100mg gabapentin twice daily) Reorder 10/22/2020 12/04/2020 documented as of this encounter Care Teams Mannequin Wig Maker Relationship Specialty Start Date End Date Carrington Calderon MD 1 [facility] [address] [place] [phone] PCP - General Internal Medicine - Primary Care 12/09/20 documented as of this encounter
--- OUTSIDE RECORDS SUMMARY | 2023-12-16 00:36 | XMS_ITS | Encounter Summary ---
Author Organization [facility] Address [address] [place] [address] Care Team Providers Care Tunnel Elastic Operator Lockstitch Name Role Phone Unavailable Primary Care Provider Unavailabl e Reason for Visit * Reason Onset Date Comments Medication Questions 10/22/2020 Encounter Details Date Type Department Care Team (Late st Contact Info) Description 10/22/2020 Telephone [facility] Adult Primary Care - [address] [phone] Tonja Alejandro PA-C [address] [place] [address] [place] [phone] Medication Questions Social History Tobacco Use [...] twice daily) 90 Cap 1 10/22/2020 12/04/2020 documented in this encounter Miscellaneous Notes * Telephone Encounter - Kamini Whittaker - 10/22/2020 4925 EDT Call to pharmacy to clarify the orders for gabapentin. Pharmacist said that lidocaine patches required a PA so she has sent that along to [facility] to get that process underway. * Telephone Encounter - Tonja Alejandro PA-C - 10/22/2020 1447 EDT Script signed * Telephone Encounter - Kamini Whittaker - 10/22/2020 1414 EDT Patient takes 100mg gabapentin BID - in the morning and at lunch time. She also takes 300mg every day at nighttime. She says the pharmacy also needs our confirmation on the lidocaine patches. Call to pharmacy - the pharmacist is on lunch, tech not able to take a message. Will call them back. * Telephone Encounter - Tonja Alejandro PA-C - 10/22/2020 1357 EDT Can you please call patient as clarify what she is taking for gabapentin? I think we just need someclarification. * Telephone Encounter - Rosalina Quezada - 10/22/2020 1151 EDT Pharmacist with [facility] called because they received two prescriptions of different strengths for gabapentin for this patient; one from Dr. Mosqueda and one from patients PCP. They are wondering which Gabapentin they are filling. documented in this encounter Plan of Treatment Upcoming Encounters Date Type Department Care Team (Late st Contact Info) Description 02/21/2024 9:45 EDT Office Visit [facility] Adult Primary Care - [address] [phone] Carrington Calderon MD 1 [facility] Level [address] [place] [phone] 02/27/2024 8:30 EDT Telemedicine [facility] Sleep Program - [place] [address] [place] [address] Rn, Sleep 02/29/2024 10:30 EDT Appointment [facility] Radiology Nuclear Medicine and PET - [address] [address] 02/29/2024 14:30 EDT Appointment [facility] Radiology Nuclear Medicine and PET - [address] [address] 03/01/2024 8:00 EDT Appointment [facility] Radiology Nuclear Medicine and PET - [address] [address] 03/01/2024 9:30 EDT Appointment [facility] Radiology Nuclear Medicine and PET [address] [address] documented as of this encounter Visit Diagnoses Not on filedocumented in this encounter Discontinued Medications Medication Sig Discontinue Reason Start Date End Da te gabapentin (NEURONTIN) 300 mg capsule Take 1 Cap by mouth 3 times daily. Reorder 08/01/2020 10/22/2020 documented as of this encounter
--- OUTSIDE RECORDS SUMMARY | 2023-12-16 00:37 | XMS_ITS | Encounter Summary ---
Author Organization [facility] Address [address] [place] [address] Care Team Providers Care Urogynaecologist Name Role Phone Unavailable Primary Care Provider Unavailabl e Encounter Details Date Type Department Care Team (Latest Contact Info) Description 09/30/2020 Travel Social History Tobacco Use Types Packs/Day [...] Never 10/06 PHQ-2 Answer Date Recorded PHQ-2 Score 0 03/04/2020 Hunger Vital Sign Answer Date Recorded Within [...] have Coronavirus / COVID-19? No / Unsure 09/30/2020 7:27 EDT documented as of this encounter Functional [...] Info) Description 02/21/2024 9:45 EDT Office Visit [facility] Adult Primary Care - [address] [phone] Carrington Calderon MD [address] [phone] 02/27/2024 8:30 EDT Telemedicine [facility] Sleep Program - [address] [address] Rn, Sleep 02/29/2024 10:30 EDT Appointment [facility] Radiology Nuclear Medicine and PET - [address] [phone] 02/29/2024 14:30 EDT Appointment [facility] Radiology Nuclear Medicine and PET - [address] 622811 03/01/2024 8:00 EDT Appointment [facility] Radiology Nuclear Medicine and PET - [address] 779481 03/01/2024 9:30 EDT Appointment [facility] Radiology Nuclear Medicine and PET - [address] [phone] documented as of this encounter Visit Diagnoses Not on filedocumented in this encounter
--- OUTSIDE RECORDS SUMMARY | 2023-12-16 00:37 | XMS_ITS | Encounter Summary ---
Author Organization [facility] Address [address] [place] [address] Care Team Providers Care Gear Machinist Name Role Phone Unavailable Primary Care Provider Unavailabl e Reason for Visit * Reason Onset Date Comments Hospital Discharge Follow Up 08/21/2020 Encounter Details Date Type Department Care Team (Late st Contact Info) Description 08/21/2020 Telephone [facility] Adult Primary Care - [address] [phone] Benita Thompson, MARCELO Hospital Discharge Follow Up Social History Tobacco Use Types Packs/Day Years Used Date Smoking Tobacco: Every Day Cigarettes 0.3 10 Started: 11/10/2010; Last attempted to quit: 08/07/2019 Smokeless Tobacco: Never Comments:06/13/20 actively try ing to quit about 5-8 cigs/day Alcohol Use Standard Drinks/Week Comments Not Currently 0 (1 standard drink = 0.6 oz pur e alcohol) AUDIT-C Answer Date Recorded Frequency of Alcohol [...] have Coronavirus / COVID-19? No / Unsure 08/20/2020 9:59 EDT documented as of this encounter Functional [...] No 08/09/2020 documented as of this encounter Miscellaneous Notes * Telephone Encounter - Benita Thompson RN - 08/21/2020 9287 EDT Hospital Discharge Follow Up: Same Day Surgery 08/20/20 Risk Assessment: high 44 Reason for admission: Laparoscopic bilateral salpingectomy Symptoms improving? Pain level 8.5-9/10. She only tolerates OTC Tylenol. Patient is aware to contact OBGYN for pain management. Discharge instructions available? yes Medications Reviewed/prescriptions filled? yes -BAD CLOTH CHECKER medications resumed Support at home? Yes-spouse Home health service/issues? no - Questions about discharge instructions? no - Follow-up visit scheduled? Yes- 09/04/20- Post Op follow up with OBGYN 09/15/20- f/u with PCP-MARY Perdomo (patient to call back if she needs a sooner appointment) Education/Plan: Patient asked for an update regarding the referral she had requested for counseling? Chart reviewed, referral was done on 08/04/20 for [facility]. Per referral documentation- phone messages were left and a letter sent on 08/11/20. Patient has been informed of this and the phone number to [facility] provided. BENITA THOMPSON, RN 08/21/2020 documented in this encounter Plan of Treatment Upcoming Encounters Date Type Department Care Team (Late st Contact Info) Description 02/21/2024 9:45 EDT Office Visit [facility] Adult Primary Care - [address] [address] Carrington Calderon MD [address] [place] [phone] 02/27/2024 8:30 EDT Telemedicine [facility] Sleep Program - [address] [address] Rn, Sleep 02/29/2024 10:30 EDT Appointment [facility] Radiology Nuclear Medicine and PET [address] [address] 02/29/2024 14:30 EDT Appointment [facility] Radiology Nuclear Medicine and PET [address] [address] 03/01/2024 8:00 EDT Appointment [facility] Radiology Nuclear Medicine and PET [address] [address] 03/01/2024 9:30 EDT Appointment [facility] Radiology Nuclear Medicine and PET [address] 100361 documented as of this encounter Visit Diagnoses Not on filedocumented in this encounter
--- OUTSIDE RECORDS SUMMARY | 2023-12-16 00:37 | XMS_ITS | Encounter Summary ---
Author Organization [facility] Address [address] [place] [address] Care Team Providers Care Tax Technician Name Role Phone Unavailable Primary Care Provider Unavailabl e Reason for Visit * Reason Onset Date Comments Results 09/12/2020 Encounter Details Date Type Department Care Team (Late st Contact Info) Description 09/12/2020 Telephone [facility] OBGYN [address] [place], [place] [phone] [place] [address] [place] [phone] Results Social History Tobacco Use Types Packs/Day [...] have Coronavirus / COVID-19? No / Unsure 09/09/2020 8:26 EDT documented as of this encounter Functional [...] encounter Miscellaneous Notes * Telephone Encounter - Clarke Joseph MD - 09/12/2020 0942 EDT Called patient to inform her of negative urine culture. No treatment or follow up indicated at thistime. Pt without concern or question. Clarke Joseph MD Obstetrics and Gynecology, PGY-2 Pager #[phone] 09/12/20 9:42 documented in this encounter Plan of Treatment Upcoming Encounters Date Type Department Care Team (Late st Contact Info) Description 02/21/2024 9:45 EDT Office Visit [facility] Adult Primary Care - [address] [address] Carrington Calderon MD [address] [phone] 02/27/2024 8:30 EDT Telemedicine [facility] Sleep Program - [address] [address] Rn, Sleep 02/29/2024 10:30 ED[facility] Nuclear Medicine and PET - [address] [phone] 02/29/2024 14:30 [facility] [address] [phone] 03/01/2024 8:00 EDT Appointment [facility] Radiology Nuclear Medicine and PET - [address] 8[address] 03/01/2024 9:30 EDT Appointment [facility] Radiology Nuclear Medicine and PET - [address] [address] documented as of this encounter Visit Diagnoses Not on filedocumented in this encounter
--- OUTSIDE RECORDS SUMMARY | 2023-12-16 00:37 | XMS_ITS | Encounter Summary ---
Author Organization [facility] Address [address] [place] [address] Care Team Providers Care Button Maker And Installer Name Role Phone Unavailable Primary Care Provider Unavailabl e Reason for Visit * Reason Onset Date Comments Coordination Of Care 10/01/2020 Patient arturo ding to ED Encounter Details Date Type Department Care Team (Late st Contact Info) Description 10/01/2020 Telephone [facility] Adult Primary Care - [address] [address] Tonja Alejandro PA-C [address] [place] [address] [place] [phone] Coordination Of Care (Patient heading to ED) Social History Tobacco Use Types Packs/Day Years [...] or suspected to have Coronavirus / COVID-19? Unable to assess 10/01/2020 11:09 EDT documented as of this encounter Functional [...] No 08/09/2020 documented as of this encounter Ordered Prescriptions Prescription Sig Dispensed Refills Start Date End Da te lancets One Touch Delica or other brand compatible with lancing device and covered by patient's insurance. 100 Each 5 10/01/2020 03/16/2023 flash glucose scanning reader (FREESTYLE FLORA 2 READER) misc 1 Device by misc (non-drug; combo route) route continuous. 1 Each 10/01/2020 05/21/2022 flash glucose sensor (FREESTYLE FLORA 2 SENSOR) kit 1 Device by misc (non-drug; combo route) route continuous. 6 Kit 3 10/01/2020 03/15/2022 LORazepam (ATIVAN) 0.5 mg tablet Take 1 Tab by mouth 3 times daily as needed for up to 14 days for Anxiety. Daily Max: 1.5 mg 30 Tab 10/01/2020 10/22/2020 documented in this encounter Miscellaneous Notes * Telephone Encounter - Tonja Alejandro PA-C - 10/01/2020 1249 EDT Spoke with patients on the phone. He tells me that Stella has not been doing well. She did fly out to [place] to visit her family and came back. She went to the ER yesterday and has been back in the ER today. She is unable to keep any foodor liquid down. It does seem like an exacerbation of her gastroparesis. Her anxiety has been also increased because of this. I encouraged him to continue care at the ER department. She is getting IV fluids which is helping some. I think she should try eating in the ER to make sure that she can keep things down. Patient also does need some refills. * Telephone Encounter - Dayana Cosme - 10/01/2020 1042 EDT Patients called stating was at ED yesterday vomiting, exhaustion, fatigue and chills. wanted to speak with Patient PCP right away. states he's bringing Patient back to EDright now. Patient is still not improving. Time sensitive, very concerned for his . documented in this encounter Plan of Treatment Upcoming Encounters Date Type Department Care Team (Late st Contact Info) Description 02/21/2024 9:45 EDT Office Visit [facility] Adult Primary Care - [address] [phone] Carrington Calderon MD [address] [phone] 02/27/2024 8:30 EDT Telemedicine [facility] Sleep Program - [address] [address] Rn, Sleep 02/29/2024 10:30 EDT [facility] Radiology Nuclear Medicine and PET - [address] [address] 02/29/2024 14:30 EDT Appointment [facility] Radiology Nuclear Medicine and PET - [address] [address] 03/01/2024 8:00 EDT Appointment [facility] Radiology Nuclear Medicine and PET - [address] [address] 03/01/2024 9:30 EDT Appointment [facility] Radiology Nuclear Medicine and PET [address] [address] documented as of this encounter Visit Diagnoses Not on filedocumented in this encounter Discontinued Medications Medication Sig Discontinue Reason Start Date End Da te lancets One Touch Delica or other brand compatible with lancing device and covered by patient's insurance. Reorder 10/01/2019 10/01/2020 flash glucose sensor (FREESTYLE FLORA 2 SENSOR) kit 1 Device by misc (non-drug; combo route) route continuous. Reorder 09/02/2020 10/01/2020 flash glucose scanning reader (FREESTYLE FLORA 2 READER) misc 1 Device by misc (non-drug; combo route) route continuous. Reorder 09/02/2020 10/01/2020 documented as of this encounter
--- OUTSIDE RECORDS SUMMARY | 2023-12-16 00:37 | XMS_ITS | Encounter Summary ---
Author Organization [facility] Address [address] [place] [address] Care Team Providers Care Slab Lifting Supervisor Name Role Phone Unavailable Primary Care Provider Unavailabl e Encounter Details Date Type Department Care Team (Latest Contact Info) Description 08/20/2020 Travel Social History Tobacco Use Types Packs/Day [...] Info) Description 02/21/2024 9:45 EDT Office Visit [facility] Adult Primary Care - [address] [phone] Carrington Calderon MD [address] [phone] 02/27/2024 8:30 EDT Telemedicine [facility] Sleep Program - [address] [address] Rn, Sleep 02/29/2024 10:30 EDT Appointment [facility] Radiology Nuclear Medicine and PET - [address] 6[address] 02/29/2024 14:30 EDT Appointment [facility] Radiology Nuclear Medicine and PET - [address] [phone] 03/01/2024 8:00 EDT Appointment [facility] Radiology Nuclear Medicine and PET - [address] [address]27[address] 03/01/2024 9:30 EDT Appointment [facility] Radiology Nuclear Medicine and PET - [address] [phone] documented as of this encounter Visit Diagnoses Not on filedocumented in this encounter
--- OUTSIDE RECORDS SUMMARY | 2023-12-16 00:37 | XMS_ITS | Encounter Summary ---
Author Organization [facility] Address [address] [place] [address] Care Team Providers Care Game Producer Name Role Phone Unavailable Primary Care Provider Unavailabl e Encounter Details Date Type Department Care Team (Late st Contact Info) Description 09/11/2020 Community Health Team [facility] [address], [address] [place], [place] [phone] Briana Larson Social History Tobacco Use Types Packs/Day Years [...] No 08/09/2020 documented as of this encounter Progress Notes * Briana Larson - 09/11/2020 0750 EDT ..Community Health Team Social Work Encounter Date of visit: 09/11/2020 Social Work initial encounter with Stella for counseling referral, original referral from Tonja DAWSON. TOPIC OF CONVERSATION: Engaged patient in conversation related to positive behavior change, self- management, goal setting and action planning using motivational interviewing and active listening. ?? [facility] social work phone consult with patient who is seeking counseling ?? Status post hysterectomy with depression/anxiety ?? Some big life events coming up per patient ?? No SDOH concerns ?? Denies SI STAGE OF CHANGE: Action PATIENT IDENTIFIED GOALS: Outpatient counseling PLAN: SW referred patient to Alaina Watts who can see her in October or Juany Márquez who has openings now. Emailed their information to patient as discussed. .. Adult Primary Care [place], [address] [place] [address] Total Time: 15 min phone, 20 min care coordination, 10 min charting Referral: Counseling Follow up: Consult only Status: Graduated documented in this encounter Plan of Treatment Upcoming Encounters Date Type Department Care Team (Late st Contact Info) Description 02/21/2024 9:45 EDT Office Visit [facility] Adult Primary Care - [address] [address] Carrington Calderon MD [address] [phone] 02/27/2024 8:30 EDT Telemedicine [facility] Sleep Program - [address] [phone] Rn, Sleep 02/29/2024 10:[address] [facility] Radiology Nuclear Medicine and PET [address] [address] 02/29/2024 14:[address] [facility] Radiology Nuclear Medicine and PET [address] [address] 03/01/2024 8:[address] [facility] Radiology Nuclear Medicine and PET [address] [address]751 03/01/2024 9:[address] [facility] Radiology Nuclear Medicine and PET [address] [address]24[address] documented as of this encounter Visit Diagnoses Not on filedocumented in this encounter
--- OUTSIDE RECORDS SUMMARY | 2023-12-16 00:37 | XMS_ITS | Encounter Summary ---
Author Organization [facility] Address [address] [place] [id number] Care Team Providers Care Diving Board Assembler Name Role Phone Unavailable Primary Care Provider Unavailabl e Reason for Visit * Auth/Cert Specialty Diagnoses / Procedures Referred By Contac t Referred To Contact Diagnoses Unwanted fertility Procedures [place] LAP,RMV ADNEXAL STRUCTURE Nimisha Bay MD [address] [place] [address] Medical Office Building, [address] [place] [address] Referral ID Status Reason Start Date Expiration Date Visits Re quested Visits Authorized [id number] 06/30/2020 1 1 Encounter Details Date Type Department Care Team (Late st Contact Info) Description 08/20/2020 12:00 EDT - 08/20/2020 14:55 EDT Surgery [facility] OR [address] [place] [id number] Nimisha Bay MD [address] [place] [address] Medical Office Building, [address] [place] [address] Laparoscopic Bilateral Salpingectomy [48432 (CPT??)] Surgery Details Date/Time Status Location OR Service Patient Class Case Cl ass Case Type Trauma Case? 08/20/20 1200 Posted [facility] - Elective Panel 1 Procedure LRB Anes Op Region Wound Class Comments Laparoscopic Bilateral Salpingectomy Bilateral General Abdomen Class II/ Clean Contaminated Surgeon Surgeon Role Service Panel Fernanda Egan DO Resident - Assisting Gynecolo gy 1 Jackie Oropeza MD Resident - Assisting Gynecology 1 Nimisha Bay MD Primary Gynecology 1 documented in this encounter Social History Tobacco Use Types Packs/Day Years [...] 9:59 EDT documented as of this encounter Last Filed Vital Signs Vital Sign Reading Time Taken Comments Blood Pressure 116/78 08/20/2020 1445 EDT Pulse - - Temperature 36.8 ??C (98.2 ??F) 08/20/2020 1443 EDT Respiratory Rate 20 08/20/2020 1445 EDT Oxygen Saturation 100% 08/20/2020 1445 EDT Inhaled Oxygen Concentration - - Weight 91.8 kg (202 lb 6.1 oz) 08/20/2020 1019 E DT Height 162.6 cm (5' 4) 08/20/2020 1019 EDT Body Mass Index 34.74 08/20/2020 1019 EDT documented in this encounter Functional Status [...] No 08/09/2020 documented as of this encounter Medications at [...] Testing QID. 100 Each 5 08/11/2020 06/27/2023 gabapentin (NEURONTIN) 300 mg capsule Take 1 Cap by mouth 3 times daily. 90 Cap 2 08/01/2020 10/22/2020 insulin aspart U-100 (NOVOLOG FLEXPEN) 100 unit/mL (3 mL) injectable penIndications:type 2 diabetes mellitus,as needed with meals. Inject 9 Units into the skin 3 times daily with meals. 30 mL 2 03/21/2020 12/21/2021 insulin glargine (LANTUS SOLOSTAR) 100 unit/mL (3 mL) injection pen Inject 30 Units into the skin at bedtime for 90 days. 27 mL 3 12/04/2019 12/21/2021 lancets One Touch Delica or other brand compatible with lancing device and covered by patient's insurance. 100 Each 5 10/01/2019 10/01/2020 LORazepam (ATIVAN) 0.5 mg tablet Take 1 Tab by mouth 2 times daily as needed for up to 28 days for Anxiety. Daily Max: 1 mg 56 Tab 08/19/2020 09/16/2020 metoclopramide HCl (REGLAN) 10 mg tablet Take 1 Tab by mouth 4 times daily as needed for up to 23 days for Nausea. 90 Tab 08/11/2020 09/03/2020 nicotine (NICODERM CQ) 7 mg/24 hr patch Apply one patch only daily on skin without hair. Apply to a different skin site at the same time each day. 14 Patch 06/13/2020 03/27/2021 ondansetron (ZOFRAN-ODT) 4 mg disintegrating tablet Take 1 Tab by mouth every 8 hours as needed for up to 30 days for Nausea. 90 Tab 08/07/2020 09/06/2020 oxyCODONE (ROXICODONE) 5 mg immediate release tablet Take 1 Tab by mouth every 4 hours as needed for Pain. Daily Max: 30 mg 5 Tab 08/20/2020 11/04/2020 TENS unit and electrodes combo pack 1 Each by misc (non-drug; combo route) route daily. 1 Each 08/01/2020 05/21/2022 documented as of this encounter Ordered Prescriptions Prescription Sig Dispensed Refills Start Date End Da te acetaminophen (TYLENOL) 325 mg tablet Take 2 Tabs by mouth every 4 hours as needed for Pain. 08/20/2020 oxyCODONE (ROXICODONE) 5 mg immediate release tablet Take 1 Tab by mouth every 4 hours as needed for Pain. Daily Max: 30 mg 5 Tab 08/20/2020 11/04/2020 documented in this encounter Discharge Disposition Disposition Code Departure Means Destination Home or Self [facility] documented in this encounter Progress Notes * Siobhan Chavez, MARCELO - 08/20/2020 1102 EDT Preop Covid DOS screening questionnaire Please document by exception (only check those that apply). Have you had any of the following symptoms recently? Pt denies Yes Chronic ? Cough Shortness of breath or difficulty breathing Fever Chills Fatigue Muscle or body aches Severe Headache New loss of taste or smell Sore throat Congestion or runny nose Rash Nausea, vomiting, or diarrhea (rare in adults. More common in children) Were you covid tested? yes When: 08/18/20 Results: negative If yes, have you self-isolated/quarantined since your test? yes See admission vital signs documentation for admission temperature. * Jackie Oropeza MD - 08/18/2020 1425 EDT Patient mixed up the date of her COVID-19 test, thinking it was today instead. Discussed with the lab and requested expedited test so that she can keep her surgery date. Patient will get testing today URGENTLY so that she can proceed with scheduled surgery tomorrow. Jackie Oropeza MD 08/18/2020 14:27 PGY-4 Obstetrics and Gynecology Pager #[phone] documented in this encounter H&P Notes * Fernanda Egan MD - 08/20/2020 1113 EDT The preoperative history and physical which was performed within 30 days of this procedure has been reviewed and the clinically appropriate elements of the physical examination have been repeated. There are no changes to the documented history and physical or if so such changes are documented below CV: RRR Resp: CTAB Took 2 units of novolog this morning. FERNANDA EGAN MD 08/20/2020 11:13 Source Note - Fernanda Egan MD - 07/28/2020 10:30 EST COGS Pre-Op H+P Subjective: HPI: Cristy Luo is an 35 y.o. presenting today for a pre-op visit for bilateral salpingectomy on 08/20. She is feeling well today, denies CP, SOB, BUSH, dizziness. She is excited to proceed with the procedure after having 8 miscarriages. She states she is emotionally done. She has a history of anxiety and depression, no medications right now but her PCP is setting her up with an appointment with a new counselor soon. Per Dr. Coronado's note 06/25/20: She desires permanent sterilization. She is very clear on this and has been consistently requested this since last year. I briefly reviewed procedure and alternatives which she is aware of. She signed the Medicaid tubal form today. Objective: BP 114/68 Wt 92.5 kg (204 lb) BMI 33.99 kg/m?? Physical Exam: GEN: NAD, cooperative, alert, A&O x 3 PSYCH: euthymic affect, normal thought content CV: RRR, normal S1,S2 PULM: good inspiratory effort bilaterally, CTAB EXT: normal gait PELVIC: not indicated Assesment: Cristy Luo is an 35 y.o. who presents for pre-op visit for bilateral salpingectomy on 08/20. AVSS and feeling well. Plan to proceed with procedure. Plan: Encounter for sterilization: - Discussed contraceptive options including OCPs, depo provera, IUDs, and continuation of nexplanon. The patient would like a permanent contraceptive option and has expressed this desire for at leasta year now. - Reviewed that vasectomy is a much safer procedure with fewer risks than a tubal ligation/salpingectomy and the patient is aware of this. - Reviewed methods of sterilization and risks/benefits of each. The patient opts for laparoscopic bilateral salpingectomy. - Medicaid consent was signed. Reviewed basic risks of surgery and of tubal regret which she accepts. - She is clear in her decision without evidence of coersion and the point was stressed again that the procedure is intended to be permanent. Medical Considerations: - Performance Status: Good - Comorbidities: DM2, anxiety, depression - Medications: novolog 9 U SSI TID with meals, Lantus 40 U at bedtime - Anticoagulation: NA Surgical Considerations: - PSH: 2002 tailbone cyst, toe amputation 2020, 7 D+C. - Body mass index is 33.9 Lashawn-operative Considerations: - Consent: [facility] and medicaid consent signed today - Health Maintenance: continue exercise and diet - Labs: a1C 05/03/2020 was 9.1. Repeat today - Other Studies: none - ABx: not indicated - VTE PPx: SCDs - Glucose Protocol: POCT on arrival day of surgery and a1C done today - Beta-blockade: NA - Blood products: willing to accept all blood products; no refusal - Preprocedure orders placed and reviewed - Instructions reviewed, including NPO after midnight. The patient has been informed and understands the information and situation provided to them about the procedure. They have capacity and ability to weigh risks, goals and benefits as well as the alternatives of proposed treatments including the option of not undergoing the procedure. The patient has expressed their rationale and executed the choice to proceed forward with the procedure with no undue influence or coercion. If the patient is DNR, a required reconsideration has been completed? N/A Patient discussed with Dr. Butch Egan D.O. 07/28/2020 11:05 Obstetrics/Gynecology PGY-1 Pager #[phone] documented in this encounter OR Notes * OR Surgeon - Nimisha Bay MD - 08/20/2020 1436 EDT Name: Cristy Luo :1985 Date of Service:@08/20/2020?? Surgeon: Dr. Nimisha Bay Flange Machine Operator:Tonja Egan D.O., Jackie Oropeza M.D. Procedure: Laparoscopy bilateral salpingectomy Anesthesia: general Preoperative Diagnosis: 1. Desires permanent sterilization Postoperative Diagnosis: Same ?? Indications: 35 y.o. who desires permanent sterilization. Risks/benefits of procedure discussed with patient including risk of failure and increased risk of ectopic gestation if occurs. ?? Findings: 1. Normal appearing external genitalia, vagina and cervix 2. Anteverted uterus without adnexal masses 3. Normal appearing uterus, tubes, and ovaries 4. Hemostasis at end of cases and at tenaculum sites ?? Narrative: The patient was taken to the operating room where the general anesthesia was found to be sufficient. The patient was then examined under anesthesia and found to have a normal-sized anteverted uterus with normal adnexa. She was then placed in the dorsal lithotomy position in Trendelenburg and prepared and draped in the normal sterile fashion. A speculum was then placed in the patient's vagina and t he anterior lip of the cervix grasped with the Hulka tenaculum. ?? Attention was then turned to the patient's abdomen where two towel clamps were used to tent the skin and a 5mm skin incision was made within the umbilical fold. The veres needle was introduced into the incision to enter the abdomen. An attempt at placing the veres needle was made three times with this technique without success. A cj was used to dissect down to the fascia and the fascia was then lifted with cj clamps and a small incision was made in the fascia with the scalpel. The varusneedle was then introduced into the peritoneum by lacing it directly on the fascia. Three attempts were made with this technique, the last of which was successful. Intraperitoneal placement was confirmed by use of a water-filled syringe and drop in intraabdominal pressure with insuflation of CO2 gas. The laparoscopic camera was introduced into the trocar and sleeve and all were advanced into the abdomen under video guidance with confirmation of intraabdominal placement. Pneumoperitoneum was obtained with CO2 gas to 15 mmHg. A second skin incision was made 3cm anteromedial to the right anterior superior iliac spine. The second trocar and sleeve were then advanced under direct visualization. A third skin incision was made 3cm anteromedial to the right anterior superior iliac spine. The third trocar and sleeve were then advanced under direct visualization. ?? A survey of the patient's pelvis and abdomen revealed a normal uterus and adnexa. The patient's left fallopian tube was identified and followed out to the fimbreated end. This tube was stabilized using a grasper and a Ligasure scalpel was used to dissect the tube away from the mesosalpinx and the ovary, and was then ligated across the tubal insertion into the uterus. The operative site was examined and found to be hemostatic. The left tube was the stabilized using a grasper and the ligasure scalpel was used to dissect the tube away from the mesosalpinx and the ovary, and was then ligated across the tubal insertion into the uterus. The operative site was examined and found to be hemostatic. The fallopian tubes were removed through the laparoscopic port site. The intraabdominal pressure wasdropped and hemostasis was confirmed visually. The appendix was noted to be normal appearing. The procedure was then terminated. ?? The instruments and trocars were removed from the patient's abdomen and CO2 gas was expressed from the abdomen. Port sites were sutured with 4-0 monocryl and sealed with dermabond. The manipulator was then removed from the cervix and vagina. The tenaculum site were hemostatic. The patient toleratedthe procedure well. All counts were correct. The patient was taken to the recovery room in stable condition. Dr. Nimisha Bay was present throughout the entire procedure. ?? Estimated blood loss: none IV fluids: 600 cc Urine Output: 75 cc Specimens Sent: bilateral fallopian tubes Retained Materials: none Complications: none Disposition: PACU -> home Fernanda Egan D.O. 08/20/2020 15:22 Obstetrics/Gynecology PGY-1 Pager #[phone] ?? Attending note: I was present for the entire procedure. No complications. Nimisha Bay MD ? documented in this encounter Plan of Treatment Upcoming Encounters Date Type Department Care Team (Late st Contact Info) Description 02/21/2024 9:45 EDT Office Visit [facility] Adult Primary [facility] - [address] [id number] Carrington Calderon MD [address] [place] [phone] 02/27/2024 8:30 EDT Telemedicine [facility] Sleep Program - [address] [id number] Rn, Sleep 02/29/2024 10:30 EDT Appointment [facility] Radiology Nuclear Medicine and PET [address] [id number] 02/29/2024 14:30 EDT Appointment [facility] Radiology Nuclear Medicine and PET [address] [id number] 03/01/2024 8:00 EDT Appointment [facility] Radiology Nuclear Medicine and [address] [id number] 03/01/2024 9:30 EDT Appointment [address] [address] Scheduled Referrals Name Type Priority Associated Diagnoses Order Schedule PROVIDER FOLLOW-UP INSTRUCTIONS Outpatient Referral Routine Ordered: 08/20/2020 PROVIDER FOLLOW-UP INSTRUCTIONS Outpatient Referral Routine Ordered: 08/20/2020 documented as of this encounter Procedures Procedure Name Priority Date/Time Associated Diagnosis Comments SURGICAL PATHOLOGY Routine 08/20/2020 13 :15 EDT LAPAROSCOPY, WITH ADNEXAL STRUCTURE EXCISION 08/20/2020 12:54 EDT Unwanted fertility POCT GLUCOSE, INTERFACED Routine 08/20/2020 11:26 EDT TEST, URINE STAT 08/20/2020 10:42 EDT documented in this encounter Results * SURGICAL PATHOLOGY (08/20/2020 13:15 EDT) Final Diagnosis A. FALLOPIAN TUBES, BILATERAL SALPINGECTOMY: - Fallopian tubes with paratubal cysts (0.3 cm in greatest dimension); full cross sections identified. 08/29/2020 7:12 T [facility] Attestation There was significant resident/fellow involvement in the diagnostic evaluation of this case. By the signature below, the attending physician certifies that they have personally conducted a gross and/or microscopic examination of the described specimens and rendered or confirmed the above diagnosis. 08/29/2020 7:12 T [facility] at 0712 Clinical History Unwanted fertility 08/29/2020 7:12 [facility] Gross Description A. Received in normal saline labelled with proper patient identification (initials Y, E) and bilateral fallopian tubes are 2 unoriented, fimbriated fallopian tubes (4.5 cm in length by 0.5 cm in diameter and 6.0 cm in length by 0.5 cm in diameter). Both tubes have dusky purple serosal surfaces with multiple clear fluid-filled paratubal cysts (ranging up to 0.3 cm in greatest dimension). No excrescences identified within the cyst spear. Sectioning reveals patent, unremarkable cut surfaces. Bee Robber sections, to include the bisected fimbria, are submitted in A1 (shorter tube) and A2 (longer tube). EUNICE BAEZ(ASCP) 08/21/2020 9:18 08/29/2020 7:12 EDT [facility] Resident/Cash w: KvngreJohn ley MD 08/29/2020 7:12 EDT [facility] Performing Lab [facility] 08/29/2020 7:12 EDT [facility] Scanned Images 08/29/2020 7:12 EDT [facility] Tissue BOTH FALLOPIAN TUBES / Unknown 08/20/2020 13:15 EDT 08/20/2020 15:16 EDT Nimisha Bay MD PATHOLOGY ORDERABLE S Performing Organization Address City/[facility] Co de Phone Number [facility] [address] [place] [address] * (ABNORMAL) POCT GLUCOSE, INTERFACED (08/20/2020 11:26 EDT) Glucose, POC 119(H) 70 - 100 mg/dL 08/20/2020 11:26 EDT [facility] c.o.d. biller ID [id number] 08/20/2020 11:26 EDT [facility] HN LAB POC COMMENT (GLUCOSE) Test Performed by Nursing Services 08/20/2020 11:26 EDT [facility] Blood CAPILLARY BLOOD / Unknown 08/20/2020 11:26 EDT 08/20/2020 11:26 EDT Whit Rae MD POINT OF CARE TEST O RDERABLES Performing Organization Address [facility]/ZIP Co de Phone Number [facility] [address] [place] [address] * TEST, URINE (08/20/2020 10:42 EDT) Test, Urine Negative Negative 08/20/2020 10:59 EDT [facility] Comment:False negative resul ts may occur in women who are beyond 5-8 weeks gestation. Diagnosis of should be based on a correlation of test results with typical clinical signs and symptoms. 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 (HCC-CMS) Type II or unspecified type diabetes mellitus with other specified manifestations, not stated as uncontrolled Unwanted fertility documented in this encounter Admitting Diagnoses Diagnosis Unwanted fertility documented in this encounter Administered Medications Inactive Administered Medications - up to 3 most recent administrations Medication Order MAR Action Action Date Dose Rate Site acetaminophen (TYLENOL) tablet 1,000 mg 1,000 mg, oral, PRN, 1 dose, Starting on Tue08/20/20 at 1425, Until Tue08/20/20 at 1501, Pain, Routine, Recovery (only) Given 08/20/2020 15:01 EDT 1,000 mg atropine 0.1 mg/mL syringe 0.5 mg 0.5 mg, intravenous, PRN, Starting on Tue08/20/20 at 1425, Until Tue08/20/20 at 1745, Symptomatic HR < 50, Routine, Recovery (only) bupivacaine (PF) (MARCAINE) 0.25 % (2.5 mg/mL) injection As needed, Starting on Tue08/20/20 at 1437, Until Tue08/20/20 at 1438, Routine, Intraprocedure Given 08/20/2020 14:37 EDT 6 mL chlorhexidine gluconate 2 % cloth 1 Each 1 Each, topical, DAILY, 1 dose, First dose on Tue08/20/20 at 1100, Routine, Preprocedure Given 08/20/2020 11:10 EDT 1 Each diphenhydrAMINE (BENADRYL) injection 12.5 mg 12.5 mg, intravenous, PRN, 1 dose, Starting on Tue08/20/20 at 1425, Until Tue08/20/20 at 1745, nausea, Routine, Recovery (only) fentaNYL citrate (PF) injection 25-50 mcg 25-50 mcg, intravenous, EVERY 5 MIN PRN, Starting on Tue08/20/20 at 1425, Until Tue08/20/20 at 1745, Pain, Routine, Recovery (only) Given 08/20/2020 15:03 EDT 50 mcg HYDROmorphone (DILAUDID) tablet 2-4 mg 2-4 mg, oral, EVERY 30 MINUTES PRN, 2 doses, Starting on Tue08/20/20 at 1425, Until Tue08/20/20 at 1745, Pain, Routine, Recovery (only) Given 08/20/2020 15:01 EDT 2 mg HYDROmorphone (PF) (DILAUDID) 0.5 mg/0.5 mL syringe 0.3-0.5 mg 0.3-0.5 mg, intravenous, EVERY 10 MINUTES PRN, Starting on Tue08/20/20 at 1425, Until Tue08/20/20 at 1745, Pain, Routine, Recovery (only) lactated ringers (LR) infusion at 25 mL/hr, intravenous, CONTINUOUS, Starting on Tue08/20/20 at 1100, Until Tue08/20/20 at 1745, Routine, Preprocedure Continued by Anesthesia 08/20/2020 13:05 EDT New Bag 08/20/2020 11:39 EDT 25 mL/hr lactated ringers (LR) infusion at 75 mL/hr, intravenous, PACU CONTINUOUS, Starting on Tue08/20/20 at 1445, Until Tue08/20/20 at 1745, Routine, Recovery (only) naloxone (NARCAN) injection 0.2 mg 0.2 mg, intravenous, PRN, Starting on Tue08/20/20 at 1425, Until Tue08/20/20 at 1745, Opioid Reversal, Routine, Recovery (only) ondansetron (PF) (ZOFRAN) injection 4 mg 4 mg, intravenous, PRN, 1 dose, Starting on Tue08/20/20 at 1425, Until Tue08/20/20 at 1745, Nausea, Vomiting, Routine, Recovery (only) sodium chloride 0.9 % irrigation As needed, Starting on Tue08/20/20 at 1410, Until Tue08/20/20 at 1410, Routine, Intraprocedure Given 08/20/2020 14:10 EDT 1,000 mL documented in this encounter Active and Recently Administered Medications Times are shown in EDT. Scheduled Medication Order 08/18/2020 08/19/2020 08/20/2020 chlorhexidine gluconate 2 % cloth 1 Each (COMPLETED) 1 Each, topical, DAILY, 1 dose, First dose on Tue08/20/20 at 1100, Routine, Preprocedure 1110 (Given - Provid er: Siobhan Chavez RN) Continuous Medication Order 08/18/2020 08/19/2020 08/20/2020 lactated ringers (LR) infusion at 25 mL/hr, intravenous, CONTINUOUS, Starting on Tue08/20/20 at 1100, Until Tue08/20/20 at 1745, Routine, Preprocedure 1139 (New Bag - Prov ider: Siobhan Chavez RN)1305 (Continued by Anesthesia - Provider: RICA Edwards) lactated ringers (LR) infusion at 75 mL/hr, intravenous, PACU CONTINUOUS, Starting on Tue08/20/20 at 1445, Until Tue08/20/20 at 1745, Routine, Recovery (only) 1454 (Continued Infu kedar - Provider: Savita Langston RN) PRN Medication Order 08/18/2020 08/19/2020 08/20/2020 acetaminophen (TYLENOL) tablet 1,000 mg (COMPLETED)(Linked Group 1) 1,000 mg, oral, PRN, 1 dose, Starting on Tue08/20/20 at 1425, Until Tue08/20/20 at 1501, Pain, Routine, Recovery (only) 1501 (Given - Provid er: Savita Langston RN) atropine 0.1 mg/mL syringe 0.5 mg 0.5 mg, intravenous, PRN, Starting on Tue08/20/20 at 1425, Until Tue08/20/20 at 1745, Symptomatic HR < 50, Routine, Recovery (only) bupivacaine (PF) (MARCAINE) 0.25 % (2.5 mg/mL) injection (CANCELED) As needed, Starting on Tue08/20/20 at 1437, Until Tue08/20/20 at 1438, Routine, Intraprocedure 1437 (Given - Provid er: Fernanda Egan MD) diphenhydrAMINE (BENADRYL) injection 12.5 mg 12.5 mg, intravenous, PRN, 1 dose, Starting on Tue08/20/20 at 1425, Until Tue08/20/20 at 1745, nausea, Routine, Recovery (only) fentaNYL citrate (PF) injection 25-50 mcg 25-50 mcg, intravenous, EVERY 5 MIN PRN, Starting on Tue08/20/20 at 1425, Until Tue08/20/20 at 1745, Pain, Routine, Recovery (only) 1503 (Given - Provid er: Savita Langston RN) HYDROmorphone (DILAUDID) tablet 2-4 mg 2-4 mg, oral, EVERY 30 MINUTES PRN, 2 doses, Starting on Tue08/20/20 at 1425, Until Tue08/20/20 at 1745, Pain, Routine, Recovery (only) 1501 (Given - Provid er: Savita Langston RN) HYDROmorphone (PF) (DILAUDID) 0.5 mg/0.5 mL syringe 0.3-0.5 mg 0.3-0.5 mg, intravenous, EVERY 10 MINUTES PRN, Starting on Tue08/20/20 at 1425, Until Tue08/20/20 at 1745, Pain, Routine, Recovery (only) naloxone (NARCAN) injection 0.2 mg 0.2 mg, intravenous, PRN, Starting on Tue08/20/20 at 1425, Until Tue08/20/20 at 1745, Opioid Reversal, Routine, Recovery (only) ondansetron (PF) (ZOFRAN) injection 4 mg 4 mg, intravenous, PRN, 1 dose, Starting on Tue08/20/20 at 1425, Until Tue08/20/20 at 1745, Nausea, Vomiting, Routine, Recovery (only) sodium chloride 0.9 % irrigation (CANCELED) As needed, Starting on Tue08/20/20 at 1410, Until Tue08/20/20 at 1410, Routine, Intraprocedure 1410 (Given - Provid er: Fernanda Egan MD) Linked Groups Order Group 1: acetaminophen (TYLENOL) solution unit dose cup 995 mg (COMPLETED) 995 mg (rounded from 1,000 mg), oral, PRN, 1 dose, Starting on Tue08/20/20 at 1425, Until Tue08/20/20 at 1501, Pain, Routine, Recovery (only) Or acetaminophen (TYLENOL) tablet 1,000 mg (COMPLETED)Jump to med 1,000 mg, oral, PRN, 1 dose, Starting on Tue08/20/20 at 1425, Until Tue08/20/20 at 1501, Pain, Routine, Recovery (only) documented in this encounter Orders Medications Ordered That Stan ht Not Have Been Administered Count Last Ordered Date First Ordered Date acetaminophen (TYLENOL) solu tion unit dose cup 995 mg 1 08/20/2020 atropine 0.1 mg/mL syringe 0.5 mg 1 chlorhexidine gluconate 2 % cloth 1 Each 1 08/20/2020 diphenhydrAMINE (BENADRYL) i njection 12.5 mg 1 08/20/2020 HYDROmorphone (PF) (DILAUDID ) 0.5 mg/0.5 mL syringe 0.3-0.5 mg 1 08/20/2020 lactated ringers (LR) infusion 1 08/20/2020 lidocaine (PF) 10 mg/mL (1 % ) injection 2 mg 1 08/20/2020 naloxone (NARCAN) injection 0.2 mg 1 2020 ondansetron (PF) (ZOFRAN) injection 4 mg 1 08/20/2020 Diet Count Last Ordered Date First Orde red Date DISCHARGE DIET 1 08/20/2020 Nursing Count Last Ordered Date First Orde red Date ACTIVITY INSTRUCTIONS 3 08/20/2020 BATHING INSTRUCTIONS 1 08/20/2020 WOUND CARE INSTRUCTIONS 3 08/20/2020 Transfer Count Last Ordered Date First Orde red Date TEACHING SERVICE 1 08/20/2020 Discharge Count Last Ordered Date First Orde red Date DISCHARGE PATIENT 1 08/20/2020 Legal Count Last Ordered Date First Orde red Date MISCELLANEOUS DISCHARGE INSTRUCTIONS 1 08/04 documented in this encounter
--- OUTSIDE RECORDS SUMMARY | 2023-12-16 00:37 | XMS_ITS | Encounter Summary ---
Author Organization [facility] Address [address] [place] [address] Care Team Providers Care Mapping Specialist Name Role Phone Unavailable Primary Care Provider Unavailabl e Reason for Visit * Reason Comments Follow-up Encounter Details Date Type Department Care Team (Latest Contact Info) Description 09/15/2020 9:45 EDT Office Visit [facility] Adult Primary Care - [address] [phone] Tonja Alejandro PA-C [address] [place] [address] [address] [place] [phone] Type 2 diabetes mellitus with hyperosmolarity without coma, with long-term current use of insulin ([facility]) (Primary Dx); Gastroparesis; Chronic bilateral thoracic back pain; Lumbar pain Social History Tobacco Use Types Packs/Day [...] have Coronavirus / COVID-19? No / Unsure 09/15/2020 9:19 EDT documented as of this encounter Last Filed Vital Signs Vital Sign Reading Time Taken Comments Blood Pressure 110/66 09/15/2020 0937 EDT Pulse 84 09/15/2020 0937 EDT Temperature 36.2 ??C (97.2 ??F) 09/15/2020 0937 EDT Respiratory Rate 18 09/15/2020 0937 EDT Oxygen Saturation - - Inhaled Oxygen Concentration - - Weight 93.3 kg (205 lb 12 oz) 09/15/2020 0937 ED T Height - - Body Mass Index 35.3 08/27/2020 1032 EDT documented in this encounter Functional Status [...] as of this encounter Progress Notes * Tonja Alejandro PA-C - 09/15/2020 0945 EDT Internal Medicine Primary Care Follow up Service Date: 09/15/2020 CC: follow up Patient reports that she followed up with [facility] and underwent a laparoscopic bilateral salpingectomy on 08/20/2020. She is very happy that this was done. She also recently got a tattoo on her left leg with butterflies representing the miscarriages that she had. She feels like she finally has closure which has been helpful for her depression as well. Patient has also been following up with endocrinology. She was recently started on Januvia 50 mg once daily. She has been taking Lantus 42 units at bedtime. She is also using a sliding scale throughout the day but is slowly decreasing this since Januvia was added. She tells me that her numbers havebeen all over the place. She reports that some of the very high and some of been very low. We also discussed her gastric emptying study. She states that overall she has been doing pretty well since her last discharge from the hospital. She had a gastric emptying study that was consistent with gastroparesis. She continues to take Reglan twice a day. She reports that this last Tuesday was a rough day. She was in bed all day with vomiting. However, she has more good days versus bad days. She also wanted to rediscuss her back pain. She has been having thoracic and lower back pain for over 20 years. The pain sometimes radiates into the hips and occasionally down the right leg stopping at the knee. She feels that her symptoms are getting progressively worse. She has done physical therapy in [place] specifically pool therapy in the past. She also reports that she has a lot of excessive skin from her weight loss. She thinks that these pulls on the back muscles. She is interested in the future of possibly getting skin removal. Patient reports that on Tuesday she is traveling out to [place] prior self. She has severe anxiety whenit comes to flying. She wants to know what to do with her lorazepam to help. Past Medical and Surgical History, Family History, Social History, Problem list, Medication list and Allergies were reviewed in [facility] and updated as appropriate. Vitals BP 110/66 Pulse 84 Temp 36.2 ??C (97.2 ??F) (Tympanic) Resp 18 Wt 93.3 kg (205 lb 12 oz) BMI 35.30 kg/m?? General: Alert, cooperative, no distress Head: normocephalic, without obvious abnormality Neck: supple, trachea midline, no adenopathy, thyroid: no enlargement, tenderness, or nodules, no carotid bruit Respiratory: lungs are clear to auscultation bilaterally. Cardiovascular: regular rate and rhythm, S1, S2 normal, no murmurs, rubs or gallops. Gastrointestinal: positive bowel sounds, non-tender, non-distended, no hepatosplenomegaly or massesappreciated, no bruits Neuro: alert and oriented x 3, normal gait, CNII-XII intact, normal strength, sensation, and reflexes throughout Musculoskeletal: + Pain with lumbar flexion and extension. More with flexion. Positive tenderness on thoracic and lumbar paraspinal muscles. Extra skin noted in these areas Psychological: well groomed, communicating fluently, alert, good eye contact. No cognitive distortions. Normal mood, normal affect, no evidence of hallucinations or delusions. A/P Anxiety regarding this upcoming airplane flight to [place] -patient already has a prescription for lorazepam, recommend that she take 1 tab up to 3 times the day of her flight. She may be due for an early refill after which is fine. No concerns. Type 2 diabetes -Continue follow-up with endocrinology -Continue Januvia 50 mg once daily -Continue Lantus 42 units at bedtime -Continue sliding scale at meals -Continue healthy diet and exercise Gastroparesis -Continue Reglan twice daily -Have discussed gastroparesis diet. Consider nutrition referral Thoracic and low back pain -Patient has done physical therapy in the past -Recommend proceeding with x-rays first followed by MRI -Continue to use TENS unit -I think pain is more musculoskeletal due to the excessive skin on the area however, will rule out degenerative disc disease and look for possible place for injection therapy. Tonja Alejandro PA-C [facility] Adult Primary [facility] 09/15/2020 9:59 I spent a total of 30 minutes on the date of this encounter [...] [facility] [address] [address] Carrington Calderon MD [address] [phone] 02/27/2024 8:30 EDT Telemedicine [facility] Sleep Program - [address] [phone] Rn, Sleep 02/29/2024 10:30 EDT Appointment [facility] Radiology Nuclear Medicine and PET [address] [id number] 02/29/2024 14:30 EDT Appointment [facility] Radiology Nuclear Medicine and PET [address] [id number] 03/01/2024 8:00 EDT Appointment [facility] Radiology Nuclear Medicine and PET [address] [id number] 03/01/2024 9:30 EDT Appointment [facility] Radiology Nuclear Medicine and PET [address] [phone] documented as of this encounter Visit Diagnoses Diagnosis Type 2 diabetes mellitus with hyperosmolarity without coma, with long-term current use of insulin ([facility])- Primary Gastroparesis Chronic bilateral thoracic back pain Lumbar pain Lumbago documented in this encounter
--- OUTSIDE RECORDS SUMMARY | 2023-12-16 00:37 | XMS_ITS | Encounter Summary ---
Author Organization [facility] Address [address] [place] [address] Care Team Providers Care Printing Equipment Mechanic Name Role Phone Unavailable Primary Care Provider Unavailabl e Reason for Visit * Reason Onset Date Comments Paperwork request 08/29/2020 paperwork for adoption Encounter Details Date Type Department Care Team (Late st Contact Info) Description 08/29/2020 Telephone [facility] Adult Primary Care - [address] [phone] Tonja Alejandro PA-C [address] [place] [address] [place] [phone] Paperwork request (paperwork for adoption) Social History Tobacco Use Types Packs/Day Years [...] * Telephone Encounter - Dayana Cosme - 09/02/2020 1558 EDT Call to Patient. Patient stated her has an apt scheduled tomorrow [place] side of clinic. will orange picking supervisor paperwork then for both. * Telephone Encounter - Tonja Alejandro PA-C - 08/29/2020 1611 EDT Form filled out. Will [address] in [facility] box to be sent out. * Telephone Encounter - Jesi Lua RN - 08/29/2020 1028 EDT Form put in Tonja DAWSON's mailbox. * Telephone Encounter - Sangita George - 08/29/2020 0910 EDT Ms. Luo's leaves adoption paperwork to be completed. This will be placed in the [facility] mailbox. documented in this encounter Plan of Treatment Upcoming Encounters Date Type Department Care Team (Late st Contact Info) Description 02/21/2024 9:45 EDT Office Visit [facility] Adult Primary Care - [address] [phone] Carrington Calderon MD [address] [phone] 02/27/2024 8:30 EDT Telemedicine [facility] Sleep Program - [address] [phone] Rn, Sleep 02/29/2024 10:30 EDT Appointment [facility] Radiology Nuclear Medicine and PET [address] [phone] 02/29/2024 14:30 EDT Appointment [facility] Radiology Nuclear Medicine and PET - [address] [id number] 03/01/2024 8:00 EDT Appointment [facility] Radiology Nuclear Medicine and PET [address] [id number] 03/01/2024 9:30 EDT Appointment [facility] Radiology Nuclear Medicine and PET [address] [phone] documented as of this encounter Visit Diagnoses Not on filedocumented in this encounter
--- OUTSIDE RECORDS SUMMARY | 2023-12-16 00:37 | XMS_ITS | Encounter Summary ---
Author Organization [facility] Address [address] [place] [address] Care Team Providers Care Home Health Speech Therapist Name Role Phone Unavailable Primary Care Provider Unavailabl e Encounter Details Date Type Department Care Team (Latest Contact Info) Description 09/15/2020 Travel Social History Tobacco Use Types Packs/Day [...] 9:19 EDT documented as of this encounter Functional [...] 02/21/2024 9:45 EDT Office Visit [facility] Adult Primary Care - [address] [phone] Carrington Calderon MD [address] [phone] 02/27/2024 8:30 EDT Telemedicine [facility] Sleep Program - [address] [address] Rn, Sleep 02/29/2024 10:30 EDT Appointment [facility] Radiology Nuclear Medicine and PET - [address] [phone] 02/29/2024 14:30 EDT Appointment [facility] Radiology Nuclear Medicine and PET - [address] [id number] 03/01/2024 8:00 EDT Appointment [facility] Radiology Nuclear Medicine and PET - [address] [phone] 03/01/2024 9:30 EDT Appointment [facility] Radiology Nuclear Medicine and PET - [address] [phone] documented as of this encounter Visit Diagnoses Not on filedocumented in this encounter
--- OUTSIDE RECORDS SUMMARY | 2023-12-16 00:37 | XMS_ITS | Encounter Summary ---
Author Organization [facility] Address [address] [place] [address] Care Team Providers Care Special Warfare Combatant Crewman Name Role Phone Unavailable Primary Care Provider Unavailabl e Reason for Visit * Reason Onset Date Comments Labs Only 09/12/2020 Encounter Details Date Type Department Care Team (Late st Contact Info) Description 09/12/2020 Telephone [facility] Adult Primary Care - [address] [phone] James Partida, RN Labs Only Social History Tobacco Use Types Packs/Day Years [...] encounter Miscellaneous Notes * Telephone Encounter - James Partida - 09/12/2020 1653 EDT Incoming call from Relayed Tonja Alejandro's message below Patient verbalized understanding with no barriers to learning and agrees with plan of care. JAMES PARTIDA RN 09/12/2020 16:53 * Telephone Encounter - James Partida - 09/12/2020 1649 EDT Outgoing call to Left message to call back to discuss. JAMES PARTIDA RN 09/12/2020 16:49 * Telephone Encounter - James Partida - 09/12/2020 1647 EDT ----- Message from Tonja Alejandro PA-C sent at 09/11/2020 10:04 EDT ----- I tried calling Stella to give her results but no answer. I had left a message with her yesterday to call back. Unable to leave message today. Gastric emptying results are consistent with gastroparesis , most likely from diabetes. Recommend that she continue reglan for now. Thanks, Tonja Alejandro PA-C documented in this encounter Plan of Treatment Upcoming Encounters Date Type Department Care Team (Late st Contact Info) Description 02/21/2024 9:45 EDT Office Visit [facility] Adult Primary Care - [address] [phone] Carrington Calderon MD [address] [place] [phone] 02/27/2024 8:30 EDT Telemedicine [facility] Sleep Program - [address] [address] Rn, Sleep 02/29/2024 10:30 EDT Appointment [facility] Radiology Nuclear Medicine and PET [address] [id number] 02/29/2024 14:30 EDT Appointment [facility] Radiology Nuclear Medicine and PET [address] [id number] 03/01/2024 8:00 EDT Appointment [facility] Radiology Nuclear Medicine and PET [address] [id number] 03/01/2024 9:30 EDT Appointment [facility] Radiology Nuclear Medicine and PET [address] [phone] documented as of this encounter Visit Diagnoses Not on filedocumented in this encounter
--- OUTSIDE RECORDS SUMMARY | 2023-12-16 00:37 | XMS_ITS | Encounter Summary ---
Author Organization [facility] Address [address] [place] [address] Care Team Providers Care Kitchen Steward/Stewardess Name Role Phone Unavailable Primary Care Provider Unavailabl e Reason for Visit * Reason Comments Post-OP Follow Up Encounter Details Date Type Department Care Team (Late st Contact Info) Description 09/04/2020 16:15 EDT Post-op Visit [facility] [address] [address] [place] [address] [place] [phone] Dysuria (Primary Dx) Social History Tobacco Use Types [...] have Coronavirus / COVID-19? No / Unsure 09/04/2020 16:24 EDT documented as of this encounter Last Filed Vital Signs Vital Sign Reading Time Taken Comments Blood Pressure 102/52 09/04/2020 1625 EDT Pulse - - Temperature - - Respiratory Rate - - Oxygen Saturation - - Inhaled Oxygen Concentration - - Weight 94.3 kg (208 lb) 09/04/2020 1625 EDT Height - - Body Mass Index 35.69 08/27/2020 1032 EDT documented in this encounter [...] as of this encounter Progress Notes * Clarke Joseph MD - 09/04/2020 1615 EDT Department of Obstetrics and Gynecology [facility] Clinic CC: Postop follow-up Procedure: Laparoscopic bilateral salpingectomy Procedure date: 08/20/20 Subjective: Cristy Luo 2 weeks post op from laparoscopic bilateral salpingectomy for desired sterilization. Since surgery she is feeling well overall. Pain is well controlled now, reports initially experiencing abdominal pain and incisional pain that was well controlled with medication. She is not longer requiring any pain medications for the last week. Appetite is improving with time, tolerating PO with rare nausea and denies vomiting. She is passing bowel movements similar to her baseline. Reportsdysuria initially after surgery that is no longer present. States it feels similar to yeast infections she had in the past that she previously treated with over the counter monostat. Symptoms are no longer present x last several days. Incisions are well healing, denies redness or swelling. Denies CP, SOB, cough, fevers, chills, LE pain. Objective: BP 102/52 Wt 94.3 kg (208 lb) BMI 35.69 kg/m?? General: no acute distress CV: regular rate and rhythm or S1S2 present Respiratory: clear to auscultation, no wheezes, rales or rhonchi, symmetric air entry Abdomen: soft, non-tender, non-distended Incisions: clean, dry, no drainage Extremities: wwp Assessment/Plan: Cristy Luo is a 35 y.o. who is 2 weeks post op from laparoscopic bilateral salpingectomy for desired sterilization. Appropriate post-op course, recovering well. Dysuria - UA with reflex collected today, will call with results Postoperative care - Meeting all postoperative milestones and recovering well - Has routine care established with PCP - No concerns or questions Routine/Preventative care - Pt well established with PCP but interested in annual DESCRIPTIVE CATALOG LIBRARIAN with [facility] clinic - Recommend scheduling visit for annual in [address] Alfonso. Clarke Joseph MD Obstetrics and Gynecology, PGY-2 Pager #[phone] 09/04/20 16:35 * Cristy Alfonso MD MPH - 09/04/2020 1755 EDT Attestation statement: I discussed the patient with the resident/fellow at the time of the visit. Iagree with the findings and the plan of care documented in the resident's/fellow's note. documented in this encounter Plan of Treatment Upcoming Encounters Date Type Department Care Team (Late st Contact Info) Description 02/21/2024 9:45 EDT Office Visit [facility] Adult Primary Care - [address] [phone] Carrington Calderon MD [address] [place] [phone] 02/27/2024 8:30 EDT Telemedicine [facility] Sleep Program - [address] [phone] Rn, Sleep 02/29/2024 10:30 EDT Appointment [facility] Radiology Nuclear Medicine and PET [address] [phone] 02/29/2024 14:30 EDT Appointment [facility] Radiology Nuclear Medicine and PET [address] [phone] 03/01/2024 8:00 EDT Appointment [facility] Radiology Nuclear Medicine and [address] [phone] 03/01/2024 9:30 EDT Appointment [facility] Radiology Nuclear Medicine and [address] [phone] documented as of this encounter Procedures Procedure Name Priority Date/Time Associated Diagnosis Comments URINE CHEMICAL (DIP) & SEDIMENT (MICRO) WITH REFLEX TO CULTURE Routine 09/04/2020 16:57 EDT Dysuria BACTERIAL CULTURE, URINE Today 09/04/2020 16:57 EDT Dysuria documented in this encounter Results * BACTERIAL CULTURE, URINE (09/04/2020 16:57 EDT) Organism ID Less than 10,000 CFU/ml Usual urogenital candis. 09/06/2020 10:45 [facility] Urine URINE SPECIMEN COLLECTION, CLEAN CATCH / Unknown Urine Collect / Unknown 09/04/2020 16:57 EDT 09/04/2020 17:53 EDT Cristy Alfonso MD MPH MICROBIOLOGY - GENERAL ORDERABLES [facility] [address] [place] [address] * (ABNORMAL) URINE CHEMICAL (DIP) & SEDIMENT (MICRO) WITH REFLEX TO CULTURE (09/04/2020 16:57 EDT) Color UA Yellow Colorless, Yellow 09/04/2020 17:53 [facility] Clarity UA Clear Clear 09/04/2020 17:53 [facility] Glucose UA Negative Negative 09/04/2020 17:53 [facility] Bilirubin UA Negative Negative 09/04/2020 17:53 [facility] Ketones UA Trace(A) Negative 09/04/2020 17:53 [facility] Specific [place], Urine 1.032 1.001 - 1.035 09/04/2020 17:53 [facility] Blood UA Negative Negative 09/04/2020 17:53 [facility] Urobilinogen UA 3(A) Normal mg/dL 09/04/2020 17:53 [facility] Nitrite UA Negative Negative 09/04/2020 17:53 [facility] Leukocyte Esterase UA Trace(A) Negative 09/04/2020 17:53 [facility] Protein UA 1+(A) Negative 09/04/2020 17:53 [facility] pH, UA 6.5 4.6 - 8.0 09/04/2020 17:53 [facility] Urine RBC Count, Auto 3 - 10(A) 0 - 2 Cells/HPF 09/04/2020 17:53 [facility] Urine WBC Count, Auto 11 - 50(A) 0 - 3 Cells/HPF 09/04/2020 17:[address] [facility] Urine Squamous Count, Auto Many(A) None Seen Cells/HPF 09/04/2020 17:[address] [facility] Urine Hyaline Cast Count, Auto <=10 <=10 Casts/LPF 09/04/2020 17:[address] [facility] Urine Bacteria Count, Auto Few(A) None Seen Bacteria/HP F 09/04/2020 17:[address] [facility] Urine URINE SPECIMEN COLLECTION, CLEAN CATCH / Unknown Urine Collect / Unknown 09/04/2020 16:57 EDT 09/04/2020 17:03 EDT [address]arrative [facility] - 09/04/2020 17:53 EDT A Urine Culture test has been reflexively ordered based on result criteria from the Urine Sediment Analysis. Urine Sediment Analysis results are unreliable on urines that are unrefrigerated for >2 hrs or refrigerated >8 hrs. Cristy Alfonso MD MPH URINALYSIS ORD ERABLES [facility] [address] [place] [address] documented in this encounter Visit Diagnoses Diagnosis Dysuria- Primary documented in this encounter
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
--- OUTSIDE RECORDS SUMMARY | 2023-12-16 00:37 | XMS_ITS | Encounter Summary ---
Author Organization [facility] Address [address] [place] [address] Care Team Providers Care Senior Electronics Technician Name Role Phone Unavailable Primary Care Provider Unavailabl e Reason for Visit * Reason Onset Date Comments Medications Refill 09/02/2020 Encounter Details Date Type Department Care Team (Late st Contact Info) Description 09/02/2020 Refill [facility] Endocrinology - [facility] [address] [place], [place] [phone] Sara Zafar NP [address] [facility] [address] [place] [address] Medications Refill Social History Tobacco [...] Refills Start Date End Da te insulin pen needles 31G x 16Indications:Type 2 diabetes mellitus with hyperglycemia, with long-term current use of insulin ([facility]) Use 1 pen needle as directed 4 times daily. 400 Each 2 09/02/2020 03/16/2023 documented in this encounter Miscellaneous Notes * Telephone Encounter - Valencia Correia - 09/02/2020 1244 EDT Medication(s) Requested patient was supposed to have 8mm (31g) pen needles called s/p her last appointment. Screw on tips. Pharmacy [id number] - [place], [place] - [facility] [address]?[phone] Next Visit Date Visit date not found Out of Medication? Yes none left Valencia Correia 09/02/2020 12:44 documented in this encounter Plan of Treatment Upcoming Encounters Date Type Department Care Team (Late st Contact Info) Description 02/21/2024 9:45 EDT Office Visit [facility] Adult Primary Care - [address] [address] Carrington Calderon MD [address] [phone] 02/27/2024 8:30 EDT Telemedicine [facility] Sleep Program - [address] [address] Rn, Sleep 02/29/2024 10:30 EDT Appointment [facility] Radiology Nuclear Medicine and PET - [address] [id number] 02/29/2024 14:30 EDT Appointment [facility] Radiology Nuclear Medicine and PET [address] [phone] 03/01/2024 8:00 EDT Appointment [facility] Radiology Nuclear Medicine and PET [address] [phone] 03/01/2024 9:30 EDT Appointment [facility] Radiology Nuclear Medicine and PET [address] [phone] documented as of this encounter Visit Diagnoses Diagnosis Type 2 diabetes mellitus with hyperglycemia, with long-term current use of insulin ([facility])- Primary documented in this encounter
--- OUTSIDE RECORDS SUMMARY | 2023-12-16 00:37 | XMS_ITS | Encounter Summary ---
Author Organization [facility] Address [address] [place] [address] Care Team Providers Care Quality Technician Name Role Phone Unavailable Primary Care Provider Unavailabl e Reason for Visit * Reason Comments Emesis Pt with vomiting sin ce 1600 yesterday, reports pain everywhere, blood sugar 323 per EMS. Per EMS pt had similar episode one month ago that was a diabetic emergency Chest Pain midsternal Encounter Details Date Type Department Care Team (Late st Contact Info) Description 09/30/2020 7:17 EDT - 09/30/2020 12:[address] [facility] Emergency Department - Main [address] [id number] Doris Moreno MD [address] [facility], Level [address] [place] [address] Gastroparesis (Primary Dx); Non-intractable vomiting, presence of nausea not specified, unspecified vomiting type; Hypomagnesemia Discharge Disposition: Home or Self Care Social [...] 7:27 EDT documented as of this encounter Last Filed Vital Signs Vital Sign Reading Time Taken Comments Blood Pressure 128/75 09/30/2020 1000 EDT Pulse 81 09/30/2020 0724 EDT Temperature - - Respiratory Rate 29 09/30/2020 1000 EDT Oxygen Saturation 97% 09/30/2020 1000 EDT Inhaled Oxygen Concentration - - Weight 90.7 kg (200 lb) 09/30/2020 0724 EDT Height 162.6 cm (5' 4) 09/30/2020 0724 EDT Body Mass Index 34.33 09/30/2020 0724 EDT documented in this encounter Functional Status [...] No 08/09/2020 documented as of this encounter Discharge Instructions * Discharge Instructions* Doris Moreno MD - 09/30/2020 12:34 EDT Thank you for coming to the emergency department today. You are improved after fluids hydration magnesium and insulin. There were no significant findings in regards to illness I do think this is likely one of your typical flares that you get into. I certainly would like you to continue your usual medications. Please follow-up with your primary care physician in regards to further medications and refills. Please make sure you continue taking your insulin today in the emergency department you received insulin Reglan , Ativan, and magnesium. Please take the rest of your usual medications when you returnhome. Please make sure you monitor your blood sugar for the next few days closely. Certainly return to emergency department there is any new symptoms change in symptoms or concern In regards to magnesium please increase magnesium in your diet I would suspect that spinach is an excellent source of magnesium as well as things like fresh veggies peppers salad greens etc. * Attachments The following attachments cannot be sent through Care Everywhere. * Gastroparesis (Latvian) * Nausea and Vomiting (Latvian) documented in this encounter Medications at Time [...] 08/11/2020 06/27/2023 flash glucose scanning reader (FREESTYLE FLORA 2 READER) mis 1 Device by [facility] (non-drug; combo route) route continuous. 1 Each 09/02/2020 10/01/2020 flash glucose sensor (FREESTYLE FLORA 2 SENSOR) kit 1 Device by misc (non-drug; combo route) route continuous. 6 Kit 3 09/02/2020 10/01/2020 gabapentin (NEURONTIN) 100 mg capsule Take 100 [...] hyperglycemia, with long-term current use of insulin ([facility]) Use 1 pen needle as directed 4 times daily. 400 Each 2 09/02/2020 03/16/2023 lancets One Touch Delica or other brand compatible with lancing device and covered by patient's insurance. 100 Each 5 10/01/2019 10/01/2020 nicotine (NICODERM CQ) 7 mg/24 hr patch [...] 08/01/2020 05/21/2022 documented as of this encounter Discharge Disposition Disposition Code Departure Means Destination Home or Self Penitentiary documented in this encounter ED Notes * Kemar Vang, RN - 09/30/2020 1243 EDT NAD at time of d/c, breathing even and unlabored, gait steady to ED exit. * Hayley Telles RN - 09/30/[address] Moreno at bedside for re-eval. Pt resting, at bedside, on monitor * Felicita De La Rosa RN - 09/30/2020 0855 EDT Blood drawn via saline lock per protocol, green tube(s) sent to lab per order. * Hayley Telles RN - 09/30/2020 0845 EDT Blood drawn via venipuncture from right hand per protocol, SST tube sent to lab per order. * Hayley Telles RN - 09/30/2020 0811 EDT X ray at bedside for chest and foot x ray. Pt resting comfortably, at bedside, on monitor * Hayley Telles RN - 09/30/2020 0740 EDT Pt became anxious, at bedside, pt stating I have to go home, its too much. Pt given verbal reassurance by staff and , medication requested from MD. * Hayley Telles RN - 09/30/2020 0720 EDT Pt brought by EMS for vomiting since last night, blood sugar in 300s. Pt had similar episode one month ago that was due to her diabetes. PT drowsy upon arrival, complaining of midsternal chest pain and pain everywhere. 18g IV in place in LAC per medics; labs drawn from PIV and sent, pt placed on monitor, EKG done, Dr Moreno at bedside. Fluids hung; received ~100mL per medics. * Doris Moreno MD - 09/30/2020 0718 EDT This patient received an evaluation and medical screening exam for emergent medical conditions at the [facility] on 09/30/2020 Scribe attestation: This documentation is recorded by Jordyn Schaefer acting as Scribe under the direction and presence of Doris Moreno MD. Doris Moreno MD: I personally performed the services recorded by the scribe in my presence. I confirm the scribe's documentation has been reviewed by me to accurately and completely record my work, treatment, procedures, and medical decision making. HPI Cristy Luo is a 35 y.o. female with PMH including type 2 diabetes mellitus, osteomyelitis ofgreat toe of left foot, migraine, gastroparesis, and s/p permanent sterilization (08/20/2020) who presents to the ED via EMS for altered mental status. EMS report she has been unable to tolerate PO intake since 1600 yesterday afternoon. Per EMS, her blood sugar was 330 en route. She had similar symptoms approximately one month ago, and at that time was found to be having a diabetic emergency, possibly gastroparesis. She endorses shortness of breath, substernal chest pain and abdominal pain. Her pain is 9/10. She reports bloody, bilious vomiting since yesterday afternoon. History was provided by: Patient, EMS, medical records. Patient's pertinent PMH, FH, SH were reviewed and updated PRN. ROS A 10-point review of systems was performed. The patient answered negative to all questions with theexceptions of those explicitly detailed as positives in the HPI. Pertinent negatives are also explicitly stated. Physical Exam Vital Signs Temp src: Oral Pulse: 81 Resp: 21 SpO2: 100 % BP: 126/82 BP Device: BP Machine BP Patient Position: Sitting BP Cuff Location: Right arm Nunez Agitation Sedation Scale: - 2 O2 Device: None (Room air) Nursing notes and vital signs were reviewed. Constitutional: Awake, alert. Responds, but slowly. Eyes: Pupils equal and reactive to light, no scleral icterus Mouth: Dry oral mucosa without apparent lesions Neck: Full ROM, no cervical LAD Heart: Sinus arrhythmia on the monitor. Without MRG Lungs: Clear to auscultation Abdomen: Soft NT, hypoactive BS Skin: No overt rashes on exposed skin Extremities: Moving spontaneously, warm and well perfused. S/p amputation of left great toe. Band-aid on left second toe, lesion on plantar surface with a crack Neuro: Grossly neurologically intact with normal speech Psych: No agitation or overt thought disorder Laboratory Results Labs Reviewed COMPLETE BLOOD COUNT AND DIFFERENTIAL - Abnormal Result Value Status WBC 15.61 (*) Final RBC 4.40 Final Hemoglobin 13.7 Final HCT 38.6 Final MCV 88 Final MCH 31.1 Final MCHC 35.5 Final RDW-CV 12.6 Final RDW-SD 40.1 Final PLT 391 (*) Final MPV 10.0 Final Neutrophils 87.2 Final Lymphocytes 9.6 Final Monocytes 2.6 Final Eosinophils 0.0 Final Basophils 0.2 Final Immature Grans 0.4 Final Absolute Neutrophils 13.61 (*) Final Absolute Lymphocytes 1.50 Final Absolute Monocytes 0.41 Final Absolute Eosinophils 0.00 (*) Final Absolute Basophils 0.03 Final Absolute Immature Grans 0.06 Final Type of Differential: Auto Final CREATININE - Abnormal Creatinine 0.43 (*) Final eGFR 132 Final MAGNESIUM - Abnormal Magnesium 1.6 (*) Final SCREENING GLUCOSE - Abnormal Glucose, Screening 268 (*) Final BETA HYDROXYBUTYRATE - Abnormal Beta Hydroxybutyrate 0.7 (*) Final POCT GLUCOSE, INTERFACED - Abnormal Glucose, POC 316 (*) Final Tech ID [id number] Final HN LAB POC COMMENT (GLUCOSE) Test Performed by Nursing Services Final POCT BLOOD GAS, EG6 I-STAT - Abnormal pH, i-STAT 7.53 (*) Final pCO2, i-STAT 35 Final pO2, i-STAT 34 (*) Final TCO2, i-STAT 30 (*) Final O2 Saturation, i-STAT 74 (*) Final Base Excess, i-STAT 6 (*) Final Sample Source VENOUS Final Tech ID [id number] Final Comment (EG6) Final Value: Test Performed by Respiratory. For non-arterial reference ranges, please see ISTAT procedure POCT GLUCOSE, INTERFACED - Abnormal Glucose, POC 210 (*) Final Tech ID [id number] Final HN LAB POC COMMENT (GLUCOSE) Test Performed by Nursing Services Final POCT GLUCOSE, INTERFACED - Abnormal Glucose, POC 202 (*) Final Tech ID [id number] Final HN LAB POC COMMENT (GLUCOSE) Test Performed by Nursing Services Final BUN - Normal BUN 16 Final ELECTROLYTES - Normal Sodium 144 Final Potassium 4.0 Final Chloride 104 Final CO2 Total 24 Final TROPONIN I - Normal Troponin I <0.034 Final Narrative: The results of this assay can be falsely lowered due to the consumption of Biotin. LIPASE - Normal Lipase 108 Final HOLD BLUE TOP Hold Hold Final Procedures Procedures Data Interpretation An EKG was obtained an independently interpreted: sinus rhythm sinus arrhythmia at 70 BPM. Normal intervals. No ST elevations appreciated. No overt peaked T waves. Imaging obtained was reviewed and independently interpreted: Chest xray: No pneumomediastinum or evidence of aspiration identified. Left foot xray: No radiographic evidence of osteomyelitis. If there is persistent clinical concern,recommend obtaining a dedicated MRI which is more sensitive to early osteomyelitis. Laboratory results independently reviewed, significant for: magnesium 1.6 was replenished, blood gases during hyperventilation showed pH of 7.5 which I suspect auto-corrected. ED Course/Medical Decision Making A medical screening was performed. The patient is a 35 y.o. female with a history of including type 2 diabetes mellitus, osteomyelitisof great toe of left foot, migraine, gastroparesis, and s/p permanent sterilization (08/20/2020) whopresents to the ED via EMS for altered mental status. Physical exam was significant for: s/p amputation of left great toe, band-aid on left second toe, lesion on plantar surface with a crack, hypoactive bowel sounds, abdomen soft and non-tender. Sinus arrhythmia on the monitor. Awake, alert. Dry mucous membranes. Responds, but slowly. Differential diagnosis includes but is not limited to: DKA versus gastroparesis with vomiting and metabolic derangement. Labs showed: magnesium 1.6, which was replenished, blood gases during hyperventilation showed pH of7.5 which I suspect auto-corrected. EKG showed: sinus rhythm sinus arrhythmia at 70 BPM. Normal intervals. No ST elevations appreciated. No overt peaked T waves. 0749: Administered 1 L IV normal saline and 1 mg IV Ativan. 0753: Administered 5 mg IV Reglan. 0926: Reassessed the patient. She states her nausea is somewhat improved. Stella reports she has not yet taken her Novolog this morning. 0939: Administered 1 L IV Plasmalyte-A. 0941: Administered 2 g IV magnesium sulfate. Her chest and left foot xrays returned, and were unremarkable. 1053: Administered 9 units IV Novolog Flexpen. Rechecked her blood glucose, which was better controlled at 202. At this time, the patient was stable for discharge home due to the replenishment of her electrolytes, her controlled blood sugar, her reassuring EKG and imaging, and her plan to follow-up as needed with her PCP. While under my care in the Emergency Department, the patient's pain was managed to an adequate level weighing risk vs. benefit of medication. Clinical Impression Final diagnoses: Gastroparesis Non-intractable vomiting, presence of nausea not specified, unspecified vomiting type Hypomagnesemia - mild Pain Management The patient's pain was managed to an [...] departure from the Emergency Department: Stable Disposition Disposition decisions were made weighing risks and benefits of hospitalization vs. outpatient treatment, the risk for further decompensation, and the patient???s wishes. -If discharged: the patient was stable, improved, or requested discharge. Prior to discharge my usual and customary return precautions were reviewed with the patient and/or family. This included follow-up instructions and reasons to return to the Emergency Department if condition worsens, does not improve as expected, or other new concerns arise. -If admitted: the patient???s condition was severe enough to require additional inpatient evaluation and treatment, or the patient was at risk of sudden decompensation. documented in this encounter Plan of Treatment Upcoming Encounters Date Type Department Care Team (Late st Contact Info) Description 02/21/2024 9:[address] [facility] Adult Primary Care [address] [address] Carrington Calderon MD [address] [place] [address] 1 [place] [phone] 02/27/2024 8:[address] [facility] Sleep Program - [address] [address] Rn, Sleep 02/29/2024 10:30 EDT Appointment [facility] Nuclear Medicine and PET - [address] [id number] 02/29/2024 14:30 EDT Appointment [facility] Nuclear Medicine and PET [address] [id number] 03/01/2024 8:00 EDT Appointment [facility] Nuclear Medicine and PET [address] [id number] 03/01/2024 9:30 EDT Appointment [facility] Nuclear Medicine and PET [address] [id number] documented as of this encounter Procedures Procedure Name Priority Date/Time Associated Diagnosis Comments ECG REPORT - SCANNED 10/04/2020 16:29 EDT POCT GLUCOSE, INTERFACED Routine 09/30/2020 11:30 EDT POCT GLUCOSE, INTERFACED STAT 09/30/2020 10:48 EDT TROPONIN I STAT 09/30/2020 8:55 EDT BETA HYDROXYBUTYRATE STAT 09/30/2020 8:45 EDT SCREENING GLUCOSE STAT 09/30/2020 8:4 5 EDT BUN STAT 09/30/2020 8:45 EDT MAGNESIUM STAT 09/30/2020 8:45 EDT LIPASE STAT 09/30/2020 8:45 EDT CREATININE STAT 09/30/2020 8:45 EDT ELECTROLYTES STAT 09/30/2020 8:45 EDT XR FOOT LEFT 1-2 VIEWS STAT 8:21 EDT XR CHEST PORTABLE 1 VIEW STAT 09/30/2020 8:21 EDT HOLD BLUE TOP STAT 09/30/2020 7:40 EDT COMPLETE BLOOD COUNT AND DIFFERENTIAL STAT 09/30/2020 7:40 EDT POCT BLOOD GAS, EG6 I-STAT Routine 09/30/2020 7:34 EDT EKG 12-LEAD STAT 09/30/2020 7:29 EDT POCT GLUCOSE, INTERFACED Routine 09/30/2020 7:25 EDT documented in this encounter Results * ECG REPORT - SCANNED (10/04/2020 16:29 EDT) 10/04/2020 16:2 9 EDT Scan [address] [employer] PROCEDURE/MINOR BRAULIO GICAL ORDERABLES * (ABNORMAL) POCT GLUCOSE, INTERFACED (09/30/2020 11:30 EDT) Glucose, POC 202(H) 70 - 100 mg/dL 09/30/2020 11:[address] [facility] claim clinician ID [id number] 09/30/2020 11:[address] [facility] HN LAB POC COMMENT (GLUCOSE) Test Performed by Nursing Services 09/30/2020 11:[address] [facility] Blood CAPILLARY BLOOD / Unknown 09/30/2020 11:30 EDT 09/30/2020 11:31 EDT Doris Moreno MD POINT OF CARE TEST O MARILIA Performing Organization Address [facility]/ZIP Co de Phone Number [facility] [address] [place] [address] * (ABNORMAL) POCT GLUCOSE, INTERFACED (09/30/2020 10:48 EDT) [facility] Glucose, POC 210(H) 70 - 100 mg/dL 09/30/2020 11:[address] [facility] claim clinician ID [id number] 09/30/2020 11:[address] [facility] HN LAB POC COMMENT (GLUCOSE) Test Performed by Nursing Services 09/30/2020 11:[address] [facility] Blood CAPILLARY BLOOD / Unknown 09/30/2020 10:48 EDT 09/30/2020 11:31 EDT Doris Moreno MD POINT OF CARE TEST O MARILIA Performing Organization Address [facility] Co de Phone Number [facility] [address] [place] [address] * TROPONIN I (09/30/2020 8:55 EDT) [facility] Troponin I (ng/mL) <0.034 <0.034 ng/mL 09/30/2020 9:[address] [facility] Blood VENOUS BLOOD / Unknown Venipuncture / Unknown 09/30/2020 8:55 EDT 09/30/2020 8:[address] [facility] - 09/30/2020 9:24 EDT The results of this assay can be falsely lowered due to the consumption of Biotin. Doris Moreno MD CHEMISTRY & BLOOD GA S ORDERABLES Performing Organization Address [facility]/ZIP Co de Phone Number [facility] [address] [place] [address] * (ABNORMAL) BETA HYDROXYBUTYRATE (09/30/2020 8:45 EDT) Beta Hydroxybutyrate 0.7(H) <0.4 mmol/L 09/30/2020 9:[address] [facility] Blood VENOUS BLOOD / Unknown Venipuncture / Unknown 09/30/2020 8:45 EDT 09/30/2020 8:50 EDT Doris Moreno MD CHEMISTRY & BLOOD GA S ORDERABLES Performing Organization Address [facility] Co de Phone Number [facility] [address] [place] [address] * LIPASE (09/30/2020 8:45 EDT) Pathologist [facility] Lipase 108 <251 U/L 09/30/2020 9:[address] [facility] Blood VENOUS BLOOD / Unknown Venipuncture / Unknown 09/30/2020 8:45 EDT 09/30/2020 8:50 EDT Doris Moreno MD CHEMISTRY & BLOOD GA S ORDERABLES Performing Organization Address [facility] de Phone Number [facility] [address] [place] [address] * (ABNORMAL) SCREENING GLUCOSE (09/30/2020 8:45 EDT) Pathologist [facility] Glucose, Screening 268(H) 70 - 100 mg/dL 09/30/2020 9:[address] [facility] Comment:Elevated screening g lucose value greater than 180 mg/dl, please order follow up Hemoglobin A1C. Blood VENOUS BLOOD / Unknown Venipuncture / Unknown 09/30/2020 8:45 EDT 09/30/2020 8:50 EDT Doris Moreno MD CHEMISTRY & BLOOD GA S ORDERABLES Performing Organization Address [facility] de Phone Number [facility] [address] [place] [address] * (ABNORMAL) MAGNESIUM (09/30/2020 8:45 EDT) Pathologist [facility] Magnesium 1.6(L) 1.7 - 2.8 mg/dL 09/30/2020 9:[address] [facility] Blood VENOUS BLOOD / Unknown Venipuncture / Unknown 09/30/2020 8:45 EDT 09/30/2020 8:50 EDT Doris Moreno MD CHEMISTRY & BLOOD GA S ORDERABLES Performing Organization Address [facility] Co de Phone Number [facility] [address] [place] [address] * ELECTROLYTES (09/30/2020 8:45 EDT) Sodium 144 136 - 145 mEq/L 09/30/2020 9:[address] [facility] Potassium 4.0 3.5 - 5.0 mEq/L 09/30/2020 9:[address] [facility] Chloride 104 96 - 110 mEq/L 09/30/2020 9:[address] [facility] CO2 Total 24 22 - 32 mEq/L 09/30/2020 9:[address] [facility] Blood VENOUS BLOOD / Unknown Venipuncture / Unknown 09/30/2020 8:45 EDT 09/30/2020 8:50 EDT Doris Moreno MD CHEMISTRY & BLOOD GA S ORDERABLES Performing Organization Address [facility] de Phone Number [facility] [address] [place] [address] * (ABNORMAL) CREATININE (09/30/2020 8:45 EDT) Creatinine 0.43(L) 0.52 - 1.04 mg/dL 09/30/2020 9:[address] [facility] eGFR 132 >60 mL/min/1.7 3m2 09/30/2020 9:[address] [facility] Comment:eGFR calculated gil curtis CKD-EPI equation for non- Americans. Multiply eGFR by 1.16 for patients. Blood VENOUS BLOOD / Unknown Venipuncture / Unknown 09/30/2020 8:45 EDT 09/30/2020 8:50 EDT Doris Moreno MD CHEMISTRY & BLOOD GA S ORDERABLES [facility] [address] [place] [address] * BUN (09/30/2020 8:45 EDT) BUN 16 10 - 26 mg/dL 09/30/2020 9:[address] [facility] Blood VENOUS BLOOD / Unknown Venipuncture / Unknown 09/30/2020 8:45 EDT 09/30/2020 8:50 EDT Doris Moreno MD CHEMISTRY & BLOOD GA S ORDERABLES Performing Organization Address [facility] Co de Phone Number [facility] [address] [place] [address] * XR FOOT LEFT 1-2 VIEWS (09/30/2020 8:21 EDT) Anatomical Region Laterality Modality Lower Extremities Left Computed Radio graphy 09/30/2020 8:43 EDT Impressions 09/30/2020 8:43 EDT No radiographic evidence of osteomyelitis. If there is persistent clinical concern, recommend obtaining a dedicated MRI which is more sensitive to early osteomyelitis. I have personally reviewed the images and the above interpretation and agree with the findings. Narrative 09/30/2020 8:43 EDT XR FOOT LEFT 1-2 VIEWS ??09/30/2020 7:40 AM Signs And Symptoms/Comments: ?? Diabetic, loss of great toe to osteo, now with lesion on left 2nd toe and here altered and ill, concern for osteo Comparison: ?? Left foot MRI 05/04/2020. Left foot radiographs 03/07/2020. Technique: AP and lateral views of the left foot. Findings: No acute fracture or malalignment is identified. The patient is status post amputation of the great toe. A soft tissue defect along the plantar surface of the facet likely corresponds to the patient's known ulcer. No periostitis, regional osteopenia, or cortical erosion is appreciated. Again seen is an os tibiale externum adjacent to the tarsal navicular. A well-corticated osseous body adjacent to the distal fibula may reflect sequelae of remote trauma. calcaneal bone spur is present at the insertion site of the plantar fascia. Soft tissue edema is present. Procedure Note Erick Baltazar MD - 09/30/2020 XR FOOT LEFT 1-2 VIEWS 09/30/2020 7:40 AM Signs And Symptoms/Comments: Diabetic, loss of great toe to osteo, now with lesion on left 2nd toe andhere altered and ill, concern for osteo Comparison: Left foot MRI 05/04/2020. Left foot radiographs 03/07/2020. Technique: AP and lateral views of the left foot. Findings: No acute fracture or malalignment is identified. The patient is statuspost amputation of the great toe. A soft tissue defect along the plantarsurface of the facet likely corresponds to the patient's known ulcer. Noperiostitis, regional osteopenia, or cortical erosion is appreciated.Again seen is an os tibiale externum adjacent to the tarsal navicular. Awell-corticated osseous body adjacent to the distal fibula may reflectsequelae of remote trauma. calcaneal bone spur is present at the insertionsite of the plantar fascia. Soft tissue edema is present. IMPRESSION No radiographic evidence of osteomyelitis. If there is persistent clinicalconcern, recommend obtaining a dedicated MRI which is more sensitive toearly osteomyelitis. I have personally reviewed the images and the above interpretation andagree with the findings. Doris Moreno MD IMG DIAGNOSTIC IMAGI NG ORDERABLES * XR CHEST PORTABLE 1 VIEW (09/30/2020 8:21 EDT) Anatomical Region Laterality Modality Computed Radiogr aphy 09/30/2020 9:20 EDT Impressions 09/30/2020 9:20 EDT 1. ??No pneumomediastinum or evidence of aspiration identified. Narrative 09/30/2020 9:20 EDT XR CHEST PORTABLE 1 VIEW ??09/30/2020 7:40 AM CLINICAL HISTORY/COMMENTS: vomiting since yesterday with pain in chest, pt is altered, - assess for pneumomediastinum, aspiration COMPARISON: June 18, 2019. FINDINGS: Single portable AP view of the chest. The patient is 75 degrees toward upright and rotated toward the right Lines/tubes: ??None Soft tissues, bones and extrathoracic findings: No significant abnormalities. Cardiac and mediastinal contours: Normal. Lungs: Clear. Pleura: No visible pleural abnormalities. Procedure Note Ismael Guadalupe MD - 09/30/2020 XR CHEST PORTABLE 1 VIEW 09/30/2020 7:40 AM CLINICAL HISTORY/COMMENTS: vomiting since yesterday with pain in chest, pt is altered, - assess forpneumomediastinum, aspiration COMPARISON: June 18, 2019. FINDINGS: Single portable AP view of the chest. The patient is 75 degrees towardupright and rotated toward the right Lines/tubes: None Soft tissues, bones and extrathoracic findings: No significantabnormalities. Cardiac and mediastinal contours: Normal. Lungs: Clear. Pleura: No visible pleural abnormalities. IMPRESSION 1. No pneumomediastinum or evidence of aspiration identified. Doris Moreno MD IMG DIAGNOSTIC IMAGI NG ORDERABLES * HOLD BLUE TOP (09/30/2020 7:40 EDT) Hold Hold 09/30/2020 8:[address] [facility] Blood VENOUS BLOOD / Unknown Venipuncture / Unknown 09/30/2020 7:40 EDT 09/30/2020 7:45 EDT Doris Moreno MD LAB INFO SERVICE AND SUPPORT & PHONE RESULT [facility] [address] [place] [phone] * (ABNORMAL) COMPLETE BLOOD COUNT AND DIFFERENTIAL (09/30/2020 7:40 EDT) WBC 15.61(H) 4.00 - 12.40 K/cmm 09/30/2020 8:[address] [facility] RBC 4.40 3.86 - 5.04 M/cmm 09/30/2020 8:[address] [facility] Hemoglobin 13.7 11.6 - 15.2 gm/dL 09/30/2020 8:01 [facility] HCT 38.6 34.9 - 44.4 % 09/30/2020 8:01 [facility] MCV 88 81 - 98 fl 09/30/2020 8:01 [facility] MCH 31.1 26.7 - 33.3 pg 09/30/2020 8:01 [facility] MCHC 35.5 32.1 - 35.9 gm/dL 09/30/2020 8:01 [facility] RDW-CV 12.6 <14.7 % 09/30/2020 8:01 [facility] RDW-SD 40.1 <50.4 fl 09/30/2020 8:01 [facility] PLT 391(H) 141 - 377 K/cmm 09/30/2020 8:01 [facility] MPV 10.0 9.5 - 12.7 fl 09/30/2020 8:01 [facility] % Neutrophils 87.2 % 09/30/2020 8:01 [facility] % Lymphocytes 9.6 % 09/30/2020 8:01 [facility] % Monocytes 2.6 % 09/30/2020 8:01 [facility] % Eosinophils 0.0 % 09/30/2020 8:01 [facility] % Basophils 0.2 % 09/30/2020 8:01 [facility] % Immature Grans 0.4 % 10/01/19 8:01 [facility] Absolute Neutrophils 13.61(H) 2.20 - 8.85 K/cmm 09/30/2020 8:01 [facility] Absolute Lymphocytes 1.50 1.09 - 3.30 K/cmm 09/30/2020 8:01 [facility] Absolute Monocytes 0.41 0.10 - 0.80 K/cmm 09/30/2020 8:01 [facility] Absolute Eosinophils 0.00(L) 0.03 - 0.61 K/cmm 09/30/2020 8:01 [facility] ABS Basophils 0.03 0.01 - 0.11 K/cmm 09/30/2020 8:01 [facility] Absolute Immature Grans 0.06 0.00 - 0.06 K/cmm 09/30/2020 8:01 [facility] Type of Differential: Auto 09/30/2020 8:01 [facility] Blood VENOUS BLOOD / Unknown Venipuncture / Unknown 09/30/2020 7:40 EDT 09/30/2020 7:45 EDT Doris Moreno MD PACKAGES & DNA PROBE ORDERABLES [facility] [address] [place] [address] * (ABNORMAL) POCT BLOOD GAS, EG6 I-STAT (09/30/2020 7:34 EDT) iSTAT pH 7.53(H) 7.35 - 7.45 09/30/2020 7:38 [facility] iSTAT pCO2 35 35 - 45 mmHg 09/30/2020 7:38 [facility] i-STAT pO2 34(L) 80 - 105 mmHg 09/30/2020 7:38 [facility] iSTAT TCO2 30(H) 23 - 27 mmol/L 09/30/2020 7:38 [facility] i-STAT O2 Saturation 74(L) 95 - 98 % 09/30/2020 7:38 [facility] Base Excess 6(H) -2 - 3 mmol/L 09/30/2020 7:38 [facility] Sample Source VENOUS 09/30/2020 7:38 [facility] claim clinician ID [id number] 09/30/2020 7:38 [facility] Comment (EG6) Test Performed by Respiratory. For non-arterial reference ranges, please see ISTAT procedure 09/30/2020 7:[address] [facility] Comment:For arterial collect ion, the Laboratory recommends that the Modified Obi test be performed to determine that collateral circulation is present from the ulnar artery in the event that thrombosis of the radial artery should occur. Performance of the Modified Obi test should be documented in the patients' chart Blood VENOUS BLOOD / Unknown 09/30/2020 7:34 EDT 09/30/2020 7:38 EDT Doris Moreno MD POINT OF CARE TEST O RDERABLES [facility] [address] [place] [address] * EKG 12-LEAD (09/30/2020 7:29 EDT) 09/30/2020 7:[address] [facility] - 10/04/2020 16:24 EDT ?[facility] ? Test Date: ?2020-09-30 Pat Name: ? CRISTY LUO ?Department: ?? ED ? Room: ? AC17 Gender: ? Female ? Operation Specialist: ?? [id number] : ?1985 ? Requested By: DIAN Zhao Number: [id number] ? Sammie MARTÍNEZ: ?? TRACE SHAUN MARTÍNEZ ? Measurements Intervals ?[place] ? Rate: ? 70 ? P: ?36 SD: ? 139 ?QRS: ?10 QRSD: ? 88 ? T: ?3 QT: ? 418 ? QTc: ?452 ? Interpretive Statements SINUS RHYTHM WITH MARKED SINUS ARRHYTHMIA Compared to ECG 08/08/2020 19:04:21 SINUS ARRHYTHMIA now present I reviewed the tracing and have either agreed or edited the findings in this report. Electronically Signed On 10-04-2020 16:24:06 EDT by CAROLINA NOYOLA MD. Procedure Note Carolina Noyola MD - 10/04/2020 [facility] Test Date: 2020-09-30 Pat Name: CRISTY LUO Department: ED Room: [facility] Gender: Female Operation Specialist: [id number] : 1985 Requested By: DIAN Huizar Order Number: [id number] Reading MD: CAROLINA NOYOLA MD Measurements Intervals [place] Rate: 70 P: 36 SD: 139 QRS: 10 QRSD: 88 T: 3 QT: 418 QTc: 452 Interpretive Statements SINUS RHYTHM WITH MARKED SINUS ARRHYTHMIA Compared to ECG 08/08/2020 19:04:21 SINUS ARRHYTHMIA now present I reviewed the tracing and have either agreed or edited the findings inthis report. Electronically Signed On 10-04-2020 16:24:06 EDT by CAROLINA RICHTER. Doris Moreno MD CARDIAC ECG ORDERABL ES Performing Organization Address [facility] Co de Phone Number [facility] * (ABNORMAL) POCT GLUCOSE, INTERFACED (09/30/2020 7:25 EDT) Glucose, POC 316(H) 70 - 100 mg/dL 09/30/2020 7:[address] [facility] claim clinician ID [id number] 09/30/2020 7:[address] [facility] HN LAB POC COMMENT (GLUCOSE) Test Performed by Nursing Services 09/30/2020 7:[address] [facility] Blood CAPILLARY BLOOD / Unknown 09/30/2020 7:25 EDT 09/30/2020 7:29 EDT Doris Moreno MD POINT OF CARE TEST O RDERABLES Performing Organization Address [facility] Co de Phone Number [facility] [address] [place] [address] documented in this encounter Visit Diagnoses Diagnosis Gastroparesis- Primary Non-intractable vomiting, presence of nausea not specified, unspecified vomiting type Hypomagnesemia Disorders of magnesium metabolism documented in this encounter Administered Medications Inactive Administered Medications - up to 3 most recent administrations Medication Order MAR Action Action Date Dose Rate Site electrolyte-A (PLASMALYTE-A) bolus 1,000 mL 1,000 mL, intravenous, NOW X1, 1 dose, On Tue09/30/20 at 0930 New Bag 09/30/2020 9:39 EDT 1,000 mL insulin aspart U-100 (NOVOLOG FLEXPEN) injection 9 Units 9 Units, subcutaneous, NOW X1, 1 dose, On Tue09/30/20 at 0930, STAT Given 09/30/2020 10:53 EDT 9 Units Left Ar m LORazepam (ATIVAN) injection 1 mg 1 mg, intravenous, NOW X1, 1 dose, On Tue09/30/20 at 0745, STAT Given 09/30/2020 7:50 EDT 1 mg magnesium sulfate 2g in D5W 50 ml 2 g, intravenous, Administer over 30 Minutes, NOW X1, 1 dose, On Tue09/30/20 at 0930, STAT New Bag 09/30/2020 9:41 EDT 2 g metoclopramide (REGLAN) injection 5 mg 5 mg, intravenous, EVERY 6 HOURS, First dose on Tue09/30/20 at 0745, Until Discontinued, STAT Given 09/30/2020 7:53 EDT 5 mg sodium chloride 0.9 % BOLUS 1,000 mL 1,000 mL, intravenous, NOW X1, 1 dose, On Tue09/30/20 at 0745, STAT New Bag 09/30/2020 7:49 EDT 1,000 mL documented in this encounter Active and Recently Administered Medications Times are shown in EDT. Scheduled Medication Order 09/28/2020 09/29/2020 09/30/2020 electrolyte-A (PLASMALYTE-A) bolus 1,000 mL (COMPLETED) 1,000 mL, intravenous, NOW X1, 1 dose, On Tue09/30/20 at 0930 0939 (New Bag - Prov ider: Hayley Telles RN) insulin aspart U-100 (NOVOLOG FLEXPEN) injection 9 Units (COMPLETED) 9 Units, subcutaneous, NOW X1, 1 dose, On Tue09/30/20 at 0930, STAT 1053 (Given - Provid er: Hayley Telles RN) LORazepam (ATIVAN) injection 1 mg (COMPLETED) 1 mg, intravenous, NOW X1, 1 dose, On Tue09/30/20 at 0745, STAT 0750 (Given - Provid er: Hayley Telles RN) magnesium sulfate 2g in D5W 50 ml (COMPLETED) 2 g, intravenous, Administer over 30 Minutes, NOW X1, 1 dose, On Tue09/30/20 at 0930, STAT 0941 (New Bag - Prov ider: Hayley Telles RN)1025 (Completed - Provider: Hayley Koki, RN) metoclopramide (REGLAN) injection 5 mg 5 mg, intravenous, EVERY 6 HOURS, First dose on Tue09/30/20 at 0745, Until Discontinued, STAT 0753 (Given - Provid er: Hayley Telles RN)1200 (Canceled Entry - Provider: Batch Job User Admin - Comment: Automatically canceled at discontinue of medication order) sodium chloride 0.9 % BOLUS 1,000 mL (COMPLETED) 1,000 mL, intravenous, NOW X1, 1 dose, On Tue09/30/20 at 0745, STAT 0749 (New Bag - Prov ider: Hayley Telles RN)0846 (Completed - Provider: Hayley Telles RN) documented in this encounter
--- OUTSIDE RECORDS SUMMARY | 2023-12-16 00:37 | XMS_ITS | Encounter Summary ---
Author Organization [facility] Address [address] [place] [address] Care Team Providers Care Short Goods Drier Name Role Phone Unavailable Primary Care Provider Unavailabl e Reason for Visit * Auth/Cert Specialty Diagnoses / Procedures Referred By Contlesli t Referred To Contact Diagnoses Unwanted fertility Procedures [place] LAP,RMV ADNEXAL STRUCTURE Nimisha Bay MD [address] [facility], [address] [place] [address] Referral ID Status Reason Start Date Expiration Date Visits Re quested Visits Authorized [id number] 06/30/2020 1 1 Encounter Details Date Type Department Care Team (Late st Contact Info) Description 08/20/2020 13:05 EDT Anesthesia Event [facility] [place] [address] [place] [address] Cece Marrufo MD [address] [phone] Jhonatan Peterson, RICA [address] [facility], [address] [place] [address] Anesthesia Record Procedure Summary Procedure Name Responsible Anesthesiologist Anesthesia Start Time Anesthesia Stop Time Laparoscopic Bilateral Salpingectomy (Bilateral: Abdomen) Cece Marrufo MD 08/20/20 1305 08/20/20 1443 Events Date Time Event Comment 08/20/2020 1305 An Start The patient was re-evaluated immediately before moderate or deep sedation use, before anesthesia induction, or before the anesthesia procedure. 1305 An Start Data 1311 An Induction The patient was reevaluated immediately before moderate or deep sedation use and before anesthesia induction. 1312 an zandra now 1317 An Intubation 1324 Anesthesia Ready 1438 An Extubation 1439 an stop data 1443 Handoff to RN I completed my handoff to the receiving nurse during which we: 1. Identified the patient 2. Identified the responsible provider 3. Reviewed the pertinent medical history 4. Discussed the surgical course 5. Reviewed intra-op anesthesia management and issues during anesthesia 6. Set expectations for post-procedure period 7. Allowed opportunity for questions and acknowledgement of understanding. 1443 An Stop Meds Name Total fentanyl citrate (PF) injection 100 mcg HYDROmorphone vial 2 mg/mL 0.6 mg lidocaine 2% (PF) injection glass vial 6 0 mg midazolam 1 mg/mL 2 mL vial 2 mg ondansetron (PF) (ZOFRAN) injection 4 mg phenylephrine pre-filled syringe 200 mcg propOFol (DIPRIVAN) injection 240 mg propofol (DIPRIVAN) 500 mg in 50 mL infu kedar 697,680 mcg rocuronium 10 mg/mL vial 70 mg sugammadex 100 mg/mL 2 mL vial 200 mg dexmedetomidine injection - vial 40 mcg lactated ringers (LR) infusion 0 mL * Agents Name Insp Sevoflurane Exp Sevoflurane O2 N2O Air * Blood No blood administrations on file. Lines, Drains, and Airways Type Details Placement Removal Peripheral IV 08/20/20; 1138; 20; 1.25; B Briseno Introcan; Anterior, Right; Forearm; Inserted by RN; 2 (x1 Siobhan Chavez x1 Rand Xavier); None; 3.15% Chlorhexidine with IPA; 08/20/20; 1544; Therapy completed; No complications, Catheter intact, Dressing applied 08/20/20 1138 by Siobhan Chavez RN 08/20/20 1544 by Savita Langston RN Wound 08/20/20; 1419; Inci kedar; Abdomen; laparoscopy trocar sites x3; Full thickness; 01/25/21; 210508/20/20 1419 by Marychuy Brown RN 01/25/212105 by Nanda Gibson RN documented in this encounter Social History Tobacco [...] No 08/09/2020 documented as of this encounter OR Notes * Anesthesia Postprocedure Evaluation - Jhonatna Peterson AA - 08/20/2020 1445 EDT Patient: Stella Huizar Young Vital signs were reviewed with the recovery nurse. Complete vitals history is available in the [facility]. Vitals Value Taken Time BP 130/73 08/20/20 1442 Temp 36.8 08/20/20 1445 Resp 19 08/20/20 1445 Pulse From Oximetry 96 BPM 08/20/20 1445 SpO2 100 % 08/20/20 1445 Vitals shown include unvalidated device data. Last Pain Score - Numeric Pain Level (Scale 1-10): 8 Type of Anesthesia - general Anesthesia Post Evaluation Level of consciousness: alert and oriented Temperature status: normothermia Respiratory status: airway patent and nasal cannula Cardiovascular status: acceptable Hydration status: adequate Nausea/Vomiting: none Pain management: adequate Post-Op Assessment: patient tolerated procedure well with no complications Patient participation: able to participate Disposition: outpatient/home Anesthesia Complications: No apparent anesthesia complications * Anesthesia Preprocedure Evaluation - Jhonatan Peterson AA - 08/20/2020 1444 EDT Anesthesia Preprocedure Evaluation Patient Medical History, including Anesthesia History reviewed. Chart and Nursing Notes reviewed, including NPO status and Medication History. Additional ROS/History Findings: Allergies Allergen Reactions ??? Citalopram Other (See Comments) suicidal ideation, approx 2012 ??? Other - See Comments Swelling of throat pomergrante ??? Advil [Ibuprofen] Hives Review of Systems Past Medical History: Diagnosis Date ??? Abnormal [...] has a referral for therapy. ??? Diabetes ([facility]) A1c 10.3 on 11/28/2019 - poorly controlled ??? Diabetes mellitus, type 2 ([facility]) pt check blood sugars at home- X 7 average BG 95-200- ( was throwing up at the time) Last A1C: ??? Does not exercise 06/13/2020 due to infected toe- typically on a normal basis- walk 3 dogs and hiking- climbing stairs is not anissue. ??? History of general anesthesia ??? History of kidney stones about 10 yrs ago- passed on own ??? Hx of ectopic 06/20/2020 ??? Hx of migraines ??? Irritable bowel syndrome 06/13/2020 ? ? Nausea & vomiting occasionally ??? Obesity, unspecified ??? Osteomyelitis ([facility]) of left great toe-s/p amputation ??? Peripheral neuropathy 08/12/20- Bilateral feet-Takes Gabapentin- pt just started this med. ??? Productive cough pt currently quitting smoking- clear secretions. ??? Spontaneous miscarriage 09/04/201502/18, 08/19. Followed by Dr. López/[facility] Relevant Problems Neuro/Psych (+) Hx of ectopic CARDIOVASCULAR (+) Migraine with aura and without status migrainosus, not intractable ENDO/GI (+) Type 2 diabetes mellitus ([facility]) (+) Type 2 diabetes mellitus with diabetic polyneuropathy, with long-term current use of insulin ([facility]) (+) 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 ([facility]) Other (+) Osteomyelitis of great toe of left foot ([facility]) (+) Osteomyelitis of toe of left foot ([facility]) Physical Exam Airway Mallampati: I TM distance: >3 FB Neck ROM: full Cardiovascular - normal exam Dental Pulmonary - normal exam Abdominal Anesthesia Plan ASA 2 Anesthesia Type - general, to include TIVA. Anesthesia plan and risks discussed. Informed consent obtained from patient. PAT Note (Notes from 07/21/20 through 08/20/20) No notes of this type exist for this encounter. * Anesthesia Procedure Notes - Jhonatan Peterson AA - 08/20/2020 1323 EDTAssociated Order(s): Airway Airway Date/Time: 08/20/2020 13:17 Urgency: elective General Information and Staff Patient location during procedure: OR Resident/CARE MANAGEMENT ASSISTANT: Jhonatan Peterson AA Performed: resident/CARE MANAGEMENT ASSISTANT/AA Indications and Patient Condition Indications for airway management: anesthesia Sedation level: GA Preoxygenated: yes Patient position: sniffing Ventilation assessment: 1 - Easy Final Airway Details Final airway type: endotracheal airway Successful airway: ETT Cuffed: yes Successful intubation technique: direct laryngoscopy Endotracheal tube insertion site: oral Blade: Lucrecia Blade size: #3 ETT size (mm): 7.5 Cormack-Lehane Classification: grade I - full view of glottis Placement verified by: capnometry Measured from: lips ETT to lips (cm): 21 Number of attempts at approach: 1 documented in this encounter Plan of Treatment Upcoming Encounters Date Type Department Care Team (Late st Contact Info) Description 02/21/2024 9:45 EDT Office Visit [facility] - [address] [phone] Carrington Calderon MD [address] [place] [phone] 02/27/2024 8:30 EDT Telemedicine [facility] [address] [phone] Rn, Sleep 02/29/2024 10:30 EDT Appointment [facility] Radiology Nuclear Medicine and PET - [address] [phone] 02/29/2024 14:30 EDT Appointment [facility] Radiology Nuclear Medicine and PET - [address] [phone] 03/01/2024 8:00 EDT Appointment [facility] Radiology Nuclear Medicine and [address] [phone] 03/01/2024 9:30 EDT Appointment [address] [address] documented as of this encounter Procedures Procedure Name Priority Date/Time Associated Diagnosis Comments ANESTHESIA INTUBATION Routine 08/20/2020 13:23 EDT documented in this encounter Results * Airway (08/20/2020 13:23 EDT) Narrative Jhonatan Peterson AA - 08/20/2020 13:23 EDT Jhonatan Peterson AA ? 08/20/2020 13:24 Airway Date/Time: 08/20/2020 13:17 Urgency: elective General Information and Staff Patient location during procedure: OR Resident/CARE MANAGEMENT ASSISTANT: Jhonatan Peterson AA Performed: resident/CARE MANAGEMENT ASSISTANT/RICA Indications and Patient Condition Indications for airway management: anesthesia Sedation level: GA Preoxygenated: yes Patient position: sniffing Ventilation assessment: 1 - Easy Final Airway Details Final airway type: endotracheal airway Successful airway: ETT Cuffed: yes Successful intubation technique: direct laryngoscopy Endotracheal tube insertion site: oral Blade: Lucrecia Blade size: #3 ETT size (mm): 7.5 Cormack-Lehane Classification: grade I - full view of glottis Placement verified by: capnometry Measured from: lips ETT to lips (cm): 21 Number of attempts at approach: 1 Cece Marrufo MD ANESTHESIA ORDERABLE S documented in this encounter Visit Diagnoses Not on filedocumented in this encounter Administered Medications Inactive Administered Medications - up to 3 most recent administrations Medication Order MAR Action Action Date Dose Rate Site dexmedeTOMIDine (PRECEDEX) injection PRN, Starting on Tue08/20/20 at 1321, Until Tue08/20/20 at 1443, Routine, Anesthesia Intraprocedure Given 08/20/2020 13:21 EDT 20 mcg Given 08/20/2020 13:18 EDT 20 mcg fentaNYL citrate (PF) injection PRN, Starting on Tue08/20/20 at 1315, Until Tue08/20/20 at 1443, Routine, Anesthesia Intraprocedure Given 08/20/2020 13:15 EDT 100 mcg HYDROmorphone (DILAUDUD) 2 mg/mL injection PRN, Starting on Tue08/20/20 at 1335, Until Tue08/20/20 at 1443, Routine, Anesthesia Intraprocedure Given 08/20/2020 14:04 EDT 0.2 mg Given 08/20/2020 13:35 EDT 0.4 mg lactated ringers (LR) infusion at 25 mL/hr, intravenous, CONTINUOUS, Starting on Tue08/20/20 at 1100, Until Tue08/20/20 at 1745, Routine, Preprocedure Continued by Anesthesia 08/20/2020 13:05 EDT New Bag 08/20/2020 11:39 EDT 25 mL/hr lidocaine (PF) 20 mg/mL (2 %) injection PRN, Starting on Tue08/20/20 at 1314, Until Tue08/20/20 at 1443, Routine, Anesthesia Intraprocedure Given 08/20/2020 13:14 EDT 60 mg midazolam (PF) (VERSED) injection PRN, Starting on Tue08/20/20 at 1309, Until Tue08/20/20 at 1443, Routine, Anesthesia Intraprocedure Given 08/20/2020 13:09 EDT 2 mg ondansetron (PF) (ZOFRAN) injection PRN, Starting on Tue08/20/20 at 1422, Until Tue08/20/20 at 1443, Routine, Anesthesia Intraprocedure Given 08/20/2020 14:22 EDT 4 mg phenylephrine HCl in 0.9% NaCl injection PRN, Starting on Tue08/20/20 at 1341, Until Tue08/20/20 at 1443, Routine, Anesthesia Intraprocedure Given 08/20/2020 14:23 EDT 100 mcg Given 08/20/2020 13:41 EDT 100 mcg propOFol (DIPRIVAN) 500 mg in 50 mL infusion FA IP EQF CONTINUOUS PRN FOR ONE STEP MEDS, Starting on Tue08/20/20 at 1312, Until Tue08/20/20 at 1443, Routine, Anesthesia Intraprocedure Rate Change 08/20/2020 14:23 EDT 50 mcg/kg/min 27.5 mL/hr New Bag 08/20/2020 13:12 EDT 100 mcg/kg/min 55.1 mL/hr propOFol (DIPRIVAN) injection PRN, Starting on Tue08/20/20 at 1315, Until Tue08/20/20 at 1443, Routine, Anesthesia Intraprocedure Given 08/20/2020 14:31 EDT 40 mg Given 08/20/2020 13:17 EDT 100 mg Given 08/20/2020 13:15 EDT 100 mg rocuronium (ZEMURON) injection PRN, Starting on Tue08/20/20 at 1315, Until Tue08/20/20 at 1443, Routine, Anesthesia Intraprocedure Given 08/20/2020 13:55 EDT 20 mg Given 08/20/2020 13:15 EDT 50 mg sugammadex (BRIDION) injection PRN, Starting on Tue08/20/20 at 1429, Until Tue08/20/20 at 1443, Routine, Anesthesia Intraprocedure Given 08/20/2020 14:29 EDT 200 mg documented in this encounter
--- OUTSIDE RECORDS SUMMARY | 2023-12-16 00:37 | XMS_ITS | Encounter Summary ---
Author Organization [facility] Address [address] [place] [address] Care Team Providers Care Professor Of Rhetoric Name Role Phone Unavailable Primary Care Provider Unavailabl e Reason for Visit * Reason Onset Date Comments Medications Refill 10/01/2020 Encounter Details Date Type Department Care Team (Late st Contact Info) Description 10/01/2020 Refill [facility] Primary [facility] - [address] [address] Tonja Alejandro PA-C [address] [place] [address] [place] [phone] Medications Refill Social History Tobacco Use [...] * Telephone Encounter - Kamini Raya - 10/02/2020 1547 EDT Medication(s) Requested: metoclopramide HCI Preferred Pharmacy: [id number] Is patient out of medication? Unknown Last Refill Date: 08/11/2020 Last Visit Date with Ordering Provider: 09/15/2020 Next Non-Acute Visit Date Scheduled with Care Team: No. Kamini Raya 10/02/2020 15:47 documented in this encounter Plan of Treatment Upcoming Encounters Date Type Department Care Team (Late st Contact Info) Description 02/21/2024 9:45 EDT Office Visit [facility] Primary [facility] - [address] [id number] Carrington Calderon MD 1 [facility] [address] [place] [address] 02/27/2024 8:30 EDT Telemedicine [facility] Sleep Program - [address] [id number] Rn, Sleep 02/29/2024 10:30 EDT Appointment [facility] Radiology Nuclear Medicine and PET [address] [id number] 02/29/2024 14:30 EDT Appointment [facility] Radiology Nuclear Medicine and PET [address] [phone] 03/01/2024 8:00 EDT Appointment [facility] Radiology Nuclear Medicine and PET - [address] [phone] 03/01/2024 9:30 EDT Appointment [facility] Radiology Nuclear Medicine and PET [address] [id number] documented as of this encounter Visit Diagnoses Not on filedocumented in this encounter
--- OUTSIDE RECORDS SUMMARY | 2023-12-16 00:37 | XMS_ITS | Encounter Summary ---
Author Organization [facility] Address [address] [place] [address] Care Team Providers Care Program Director Scouting Name Role Phone Unavailable Primary Care Provider Unavailabl e Encounter Details Date Type Department Care Team (Latest Contact Info) Description 10/01/2020 Travel Social History Tobacco Use Types Packs/Day [...] Description 02/21/2024 9:45 EDT Office Visit [facility] Adult Primary Care - [address] [address]251 Carrington Calderon MD [address] [phone] 02/27/2024 8:30 EDT Telemedicine [facility] Sleep Program - [address] [phone] Rn, Sleep 02/29/2024 10:30 EDT Appointment [facility] Radiology Nuclear Medicine and PET - [address] [phone] 02/29/2024 14:30 EDT Appointment [facility] Radiology Nuclear Medicine and PET [address] [phone] 03/01/2024 8:00 EDT Appointment [facility] Radiology Nuclear Medicine and PET - [address] [address] 03/01/2024 9:30 EDT Appointment [facility] Radiology Nuclear Medicine and PET - [address] [address] documented as of this encounter Visit Diagnoses Not on filedocumented in this encounter
--- OUTSIDE RECORDS SUMMARY | 2023-12-16 00:37 | XMS_ITS | Encounter Summary ---
Author Organization [facility] Address [address] [place] [address] Care Team Providers Care Fabric Machine Operator Name Role Phone Unavailable Primary Care Provider Unavailabl e Encounter Details Date Type Department Care Team (Latest Contact Info) Description 09/09/2020 Travel Social History Tobacco Use Types Packs/Day [...] Description 02/21/2024 9:45 EDT Office Visit [facility] Adult Primary Care - [address] [address]301 Carrington Calderon MD [address] [phone] 02/27/2024 8:30 EDT Telemedicine [facility] Sleep Program - [address] [address] Rn, Sleep 02/29/2024 10:30 EDT Appointment [facility] Radiology Nuclear Medicine and PET - [address] [phone] 02/29/2024 14:30 EDT Appointment [facility] Radiology Nuclear Medicine and PET - [address] [id number] 03/01/2024 8:00 EDT Appointment [facility] Radiology Nuclear Medicine and PET - [address] [phone] 03/01/2024 9:30 EDT Appointment [facility] Radiology Nuclear Medicine and PET - [address] [phone] documented as of this encounter Visit Diagnoses Not on filedocumented in this encounter
--- OUTSIDE RECORDS SUMMARY | 2023-12-16 00:37 | XMS_ITS | Encounter Summary ---
Author Organization Health system Address [address] [place] [address] Care Team Providers Care Supervisor Seaming Name Role Phone Unavailable Primary Care Provider Unavailabl e Reason for Referral * Radiology Services (Routine) - Closed Specialty Diagnoses / Procedures Referred By Kit goode Referred To Contact Nuclear Medicine Diagnoses Generalized abdominal pain Emesis, persistent Type 2 diabetes mellitus with hyperosmolarity without coma, with long-term current use of insulin ([facility]) Procedures NM GASTRIC EMPTYING SOLID Broderick Irene MD [address] [place] [address] Referral ID Status Reason Start Date Expiration Date Visits Re quested Visits Authorized [id number] Closed 08/10/2020 1 1 Reason for Visit * Radiology Services (Routine) - Closed Specialty Diagnoses / Procedures [facility] Referred To Contact Nuclear Medicine Diagnoses Generalized abdominal pain Emesis, persistent Type 2 diabetes mellitus with hyperosmolarity without coma, with long-term current use of insulin ([facility]) Procedures NM GASTRIC EMPTYING SOLID Broderick Irene MD [address] [place] [address] Referral ID Status Reason Start Date Expiration Date Visits Re quested Visits Authorized [id number] Closed 08/10/2020 1 1 Encounter Details Date Type Department Care Team (Latest Contact Info) Description 09/09/2020 8:27 EDT - 09/09/2020 23:59 EDT Hospital Encounter [facility] Radiology Nuclear Medicine and PET - [address] [address] Generalized abdominal pain; Emesis, persistent; Type 2 diabetes mellitus with hyperosmolarity without coma, with long-term current use of insulin ([facility]) Discharge Disposition: Home or Self Care Social [...] hyperglycemia, with long-term current use of insulin ([facility]) Use 1 pen needle as directed [...] Max: 1 mg 56 Tab 08/19/2020 09/16/2020 nicotine (NICODERM CQ) 7 mg/24 hr patch [...] Clinic [facility] Adult Primary Care - [address] [phone] Carrington Calderon MD [address] [phone] 02/27/2024 8:30 EDT Telemedicine [facility] Sleep Program - [address] [phone] Rn, Sleep 02/29/2024 10:30 EDT [facility] - [address] [phone] 02/29/2024 14:30 EDT Appointment [facility] Radiology Nuclear Medicine and PET [address] [address] 03/01/2024 8:00 EDT Appointment [facility] Radiology Nuclear Medicine and PET [address] [address] 03/01/2024 9:30 EDT Appointment [facility] Radiology Nuclear Medicine and PET [address] [address] documented as of this encounter Procedures Procedure Name Priority Date/Time Associated Diagnosis Comments NM GASTRIC EMPTYING SOLID Routine 09/09/2020 15:05 EDT Generalized abdominal pain Emesis, persistent Type 2 diabetes mellitus with hyperosmolarity without coma, with long-term current use of insulin ([facility]) POCT GLUCOSE, INTERFACED Routine 09/09/2020 8:47 EDT documented in this encounter Results * NM GASTRIC EMPTYING SOLID (09/09/2020 15:05 EDT) Anatomical Region Laterality Modality Body Nuclear Medicine 09/09/2020 16:1 0 EDT Impressions 09/09/2020 16:10 EDT Delayed gastric emptying for solid food. References: Manny et al. [place] Journal of Gastroenterology 2000. Kev et al. Gastroenterology 2006 Roshni et al. [place] Journal of Gastroenterology 2006. Narrative 09/09/2020 16:10 EDT NM GASTRIC EMPTYING SOLID ??09/09/2020 9:00 AM Signs and Symptoms/Comments: ?? Eval for gastroparesis. Technique: 0.5 mCi Tc-99m Sulfur Colloid tagged with egg whites with 2 slices of white bread, 30 grams of jam, and 120 ml of water was ingested by the patient. ??1 minute anterior and posterior mages were obtained immediately after completion of the meal, at 30 minutes, 60 minutes, 90 minutes, 120 minutes, 180 minutes and 240 minutes or upto 90 % of gastric emptying. ??Percent gastric emptying was calculated for each time point. T1/2 of gastric emptying was calculated using a geometric mean curve fit method. Findings: Time to half emptyin minutes. Retention at ??30 minutes: 97 %. ?( Rapid under 70% ) Retention at ??60 minutes: 88 %. ?( Rapid under 30%, Delayed over 90% ) Retention at 120 minutes: 75 %. ? ( Delayed over 60% ) Retention at 180 minutes: 73 %. Retention at 240 minutes: 38 %. ? ( Delayed over 10% ) Procedure Note Pelon Thayer MD - 09/09/2020 NM GASTRIC EMPTYING SOLID 09/09/2020 9:00 AM Signs and Symptoms/Comments: Eval for gastroparesis. Technique: 0.5 mCi Tc-99m Sulfur Colloid tagged with egg whites with 2 slices ofwhite bread, 30 grams of jam, and 120 ml of water was ingested by thepatient. 1 minute anterior and posterior mages were obtained immediatelyafter completion of the meal, at 30 minutes, 60 minutes, 90 minutes, 120minutes, 180 minutes and 240 minutes or upto 90 % of gastric emptying.Percent gastric emptying was calculated for each time point. T1/2 ofgastric emptying was calculated using a geometric mean curve fit method. Findings: Time to half emptyin minutes. Retention at 30 minutes: 97 %. ( Rapid under 70% ) Retention at 60 minutes: 88 %. ( Rapid under 30%, Delayed over 90%) Retention at 120 minutes: 75 %. ( Delayed over 60% ) Retention at 180 minutes: 73 %. Retention at 240 minutes: 38 %. ( Delayed over 10% ) IMPRESSION Delayed gastric emptying for solid food. References: Toapurvas et al. [place] Journal of Gastroenterology 2000. Kev et al. Gastroenterology 2006 Roshni et al. [place] Journal of Gastroenterology 2006. Broderick Irene MD [facility] ORDERABLES * (ABNORMAL) POCT GLUCOSE, INTERFACED (09/09/2020 8:47 EDT) Glucose, POC 107(H) 70 - 100 mg/dL 09/10/2020 6:44 EDT [facility] manager integrity ID [id number] 09/10/2020 6:44 EDT [facility] HN LAB POC COMMENT (GLUCOSE) Test performed by Nuclear Medicine 09/10/2020 6:44 EDT [facility] Blood CAPILLARY BLOOD / Unknown 09/09/2020 8:47 EDT 09/10/2020 6:44 EDT Provider Unknown MD POINT OF CARE TEST O RDERABLES [facility] [address] [place] [address] documented in this encounter Visit Diagnoses Diagnosis Generalized abdominal pain Abdominal pain, generalized Emesis, persistent Persistent vomiting Type 2 diabetes mellitus with hyperosmolarity without coma, with long-term current use of insulin ([facility]) documented in this encounter Administered Medications Inactive Administered Medications - up to 3 most recent administrations Medication Order MAR Action Action Date Dose Rate Site technetium (Tc-99m) sulfur colloid injection 0.5 millicurie 0.5 millicurie, oral, NOW X1, 1 dose, On Tue09/09/20 at 0930, Routine, Imaging Protocol Orders Given 09/09/2020 9:02 EDT 0.54 millicuries documented in this encounter
--- OUTSIDE RECORDS SUMMARY | 2023-12-16 00:37 | XMS_ITS | Encounter Summary ---
Author Organization [facility] Address [address] [place] [address] Care Team Providers Care Property Consultant Name Role Phone Unavailable Primary Care Provider Unavailabl e Reason for Visit * Reason Comments Emesis Pt arrives to triage with significant other - seen here yesterday for body aches and persistent nausea/vomiting; sx did not improve overnight, unable to hold self upright in wheelchair in triage Encounter Details Date Type Department Care Team (Late st Contact Info) Description 10/01/2020 11:05 EDT - 10/01/2020 15:04 EDT Emergency [facility] Emergency Department - Main [place] [address], [place] [id number] Aubrey Javed, MARY [address] [place], [place] [id number] Non-intractable vomiting with nausea, unspecified vomiting type [...] 11:09 EDT documented as of this encounter Last Filed Vital Signs Vital Sign Reading Time Taken Comments Blood Pressure 119/83 10/01/2020 1400 EDT Pulse 90 10/01/2020 1109 EDT Temperature 36.9 ??C (98.5 ??F) 10/01/2020 1400 EDT Respiratory Rate 26 10/01/2020 1400 EDT Oxygen Saturation 98% 10/01/2020 1400 EDT Inhaled Oxygen Concentration - - Weight [...] this encounter Discharge Instructions * Discharge Instructions* Aubrey Javed PA-C - 10/01/2020 14:56 EDT Exam today showed active vomiting initially with significant abdominal pain and tenderness. Labs today including CBC, BMP are normal except for a mildly elevated WBC of 14 and a glucose of 218. You are given IV fluids, IV lorazepam and Haldol in the emergency room with very good relief of your symptoms. You were able to eat and drink afterwards. 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 Consider stopping THC for the next several months to see if symptoms resolve. In the meantime, try capsaicin and Haldol 5 mg once daily if needed for nausea and vomiting at home. Okay to use Ativan as well if needed, but both of these medications are sedating. If you find Haldol helpful, talk to your PCP about additional prescriptions. Return immediately forworsening or uncontrolled symptoms, otherwise followup with your PCP. documented in this encounter Medications at Time [...] 10/01/2020 03/27/2021 flash glucose scanning reader (FREESTYLE FLORA 2 [...] hyperglycemia, with long-term current use of insulin ([facility]) Use 1 pen needle as directed 4 [...] Max: 1.5 mg 30 Tab 10/01/2020 10/22/2020 nicotine (NICODERM CQ) 7 mg/24 hr patch [...] Dispensed Refills Start Date End Da te capsaicin (ZOSTRIX) 0.025 % topical cream Apply up to 2 times daily over abdomen, shoulders and arms as needed for abdominal pain and nausea 1 Tube 1 10/01/2020 03/27/2021 haloperidoL (HALDOL) 5 mg tablet Take 1 Tab by mouth daily as needed for Nausea. 10 Tab 10/01/2020 10/10/2020 documented in this encounter Discharge Disposition Disposition Code Departure Means Destination Home or Self Shelter documented in this encounter ED Notes * Aubrey Javed PA-C - 10/01/2020 4200 EDT DOS: 10/01/2020 Chief Complaint Patient presents with ??? Emesis Pt arrives to triage with significant other - seen here yesterday for body aches and persistent nausea/vomiting; sx did not improve overnight, unable to hold self upright in wheelchair in triage HPI The patient is a 35 y.o. female who presents today with Emesis (Pt arrives to triage with significant other - seen here yesterday for body aches and persistent nausea/vomiting; sx did not improve overnight, unable to hold self upright in wheelchair in triage) Chief complaint of abdominal pain, nausea and vomiting. Patient initially in great distress, actively vomiting, history from . Patient was in the emergency room yesterday with similar symptoms, and had an extensive work-up with Doris Moreno. She had moderate hyperglycemia , but no apparent DKA. She was given numerous IV medications and fluids and eventually felt better. At home, she has lorazepam to use for the symptoms, and Reglan. She has been told she might have gastroparesis related to her diabetes. Patient felt better for a couple of hours at home, then started getting same symptoms in the evening, worsening overnight, becoming severe today. She complains of severe generalized abdominal pain and pain in her back as well. Patient denies diarrhea or constipation. Denies chest pain or shortness of breath. Denies fever or chills, cough or cold symptoms. notes that she only gets relief from hot showers, but is too weak to publishing editor the shower for very long today. Patient does smoke cigarettes and cannabis every day, except none in the last couple of days. Denies alcohol or other drugs. The history is provided by the patient. Emesis Review of Systems Review of Systems Gastrointestinal: Positive for vomiting. The patient's past medical, family and social history was reviewed and updated as needed. Allergies Allergen Reactions ??? Citalopram Other (See Comments) suicidal ideation, approx 2012 ??? Other - See Comments Swelling of throat pomergrante ??? Advil [Ibuprofen] Hives Vital Signs Vitals Reassessment?: Yes Temp: 36.9 ??C (98.5 ??F) Temp src: Oral Pulse: 90 Heart Rate: 97 BPM Cardiac Rhythm: Normal sinus rhythm Resp: 26 SpO2: 98 % BP: 119/83 BP MAP: 90 mm Hg O2 Device: None (Room air) Physical Exam Vitals signs and nursing note reviewed. Constitutional: General: She is in acute distress. Appearance: She is well-developed. She is obese. She is ill-appearing. HENT: Mouth/Throat: Mouth: Mucous membranes are moist. Pharynx: Oropharynx is clear. Eyes: Conjunctiva/sclera: Conjunctivae normal. Pupils: Pupils are equal, round, and reactive to light. Cardiovascular: Rate and Rhythm: Normal rate and regular rhythm. Pulmonary: Effort: Pulmonary effort is normal. Abdominal: Palpations: Abdomen is soft. Tenderness: There is abdominal tenderness ( Diffuse moderate). There is no right CVA tenderness, left CVA tenderness, guarding or rebound. Hernia: No hernia is present. Skin: General: Skin is warm and dry. Neurological: Mental Status: She is alert and oriented to person, place, and time. Psychiatric: Behavior: Behavior normal. Thought Content: Thought content normal. Judgment: Judgment normal. RESULTS EKG orders: None Radiology orders: None Procedures ED COURSE A medical screening exam was performed. On exam, patient initially writhing and vomiting actively, with severe abdominal tenderness. No flank tenderness. Normal exam otherwise. Patient received significant relief from IV fluids, Ativan and Haldol. She was observed in the emergency room for another couple of hours, was able to eat and drink, felt much better. The fact that patient has been a daily cannabis user for years and has had a largely negative work-up so far for her cyclical vomiting symptoms, and gets significant relief from her symptoms with hotshowers raise the possibility of cannabis hyperemesis syndrome. With her diabetes, she may also be suffering from gastroparesis, or symptoms made be the result of a combination of these issues. Based on research today, some patients have gotten relief with outpatient oral Haldol from [facility]. patient is currently not vomiting and tolerating p.o. intake. Although she is nervous about going home and having to come back, she agrees to try oral Haldol at home. She will continue to work on eliminating THC. We discussed the fact that this would probably have to be for several months before we would expect her symptoms to resolve if this is [facility]. She will return for uncontrolled symptoms. Final diagnoses: Non-intractable vomiting with nausea, unspecified [...] departure from the Emergency Department: Stable PCP: Tonja Alejandro [facility] Number of Diagnoses or Management Options Amount and/or Complexity of Data Reviewed Clinical lab tests: ordered Tests in the medicine section of CPT??: ordered Alessandro Delgadillo 10/03/2020 8:15 No flowsheet data found. * Diego Casas RN - 10/01/2020 1355 EDT PO fluids provided for PO challenge. * Diego Casas RN - 10/01/2020 1239 EDT Pt resting with eyes closed, emesis and nausea have currently resolved. No other needs at this time. No distress. Vss. Call Ford in reach. documented in this encounter Plan of Treatment Upcoming Encounters Date Type Department Care Team (Late st Contact Info) Description 02/21/2024 9:45 EDT Office Visit [facility] Adult Primary Care [address] [address] Carrington Calderon MD 1 [facility] [address] [place] [phone] 02/27/2024 8:30 EDT Telemedicine [facility] Sleep Program - [address] [phone] Rn, Sleep 02/29/2024 10:30 EDT Appointment [facility] Radiology Nuclear Medicine and PET [address] [phone] 02/29/2024 14:30 EDT Appointment [facility] Radiology Nuclear Medicine and PET [address] [phone] 03/01/2024 8:00 EDT Appointment [facility] Radiology Nuclear Medicine and PET [address] [address] 03/01/2024 9:30 EDT Appointment [facility] Radiology Nuclear Medicine and PET [address] [phone] documented as of this encounter Procedures Procedure Name Priority Date/Time Associated Diagnosis Comments COMPLETE BLOOD COUNT AND DIFFERENTIAL STAT 10/01/2020 11:51 EDT BASIC METABOLIC PANEL (BMP) STAT 10/01/2020 11:51 EDT POCT GLUCOSE, INTERFACED Routine 10/01/2020 11:14 EDT documented in this encounter Results * (ABNORMAL) COMPLETE BLOOD COUNT AND DIFFERENTIAL (10/01/2020 11:51 EDT) WBC 14.04(H) 4.00 - 12.40 K/cmm 10/01/2020 12:28 EDT [facility] RBC 4.42 3.86 - 5.04 M/cmm 10/01/2020 12:28 EDT [facility] Hemoglobin 14.1 11.6 - 15.2 gm/dL 10/01/2020 12:28 [facility] HCT 38.2 34.9 - 44.4 % 10/01/2020 12:28 [facility] MCV 86 81 - 98 fl 10/01/2020 12:28 [facility] MCH 31.9 26.7 - 33.3 pg 10/01/2020 12:28 [facility] MCHC 36.9(H) 32.1 - 35.9 gm/dL 10/01/2020 12:28 [facility] RDW-CV 12.4 <14.7 % 10/01/2020 12:28 [facility] RDW-SD 39.3 <50.4 fl 10/01/2020 12:28 [facility] PLT 380(H) 141 - 377 K/cmm 10/01/2020 12:28 [facility] MPV 9.6 9.5 - 12.7 fl 10/01/2020 12:28 [facility] % Neutrophils 71.0 % 10/01/2020 12:28 [facility] % Lymphocytes 21.1 % 10/01/2020 12:28 [facility] % Monocytes 6.9 % 10/01/2020 12:28 [facility] % Eosinophils 0.2 % 10/01/2020 12:28 [facility] % Basophils 0.4 % 10/01/2020 12:28 [facility] % Immature Grans 0.4 % 10/02/19 12:28 [facility] Absolute Neutrophils 9.97(H) 2.20 - 8.85 K/cmm 10/01/2020 12:28 [facility] Absolute Lymphocytes 2.96 1.09 - 3.30 K/cmm 10/01/2020 12:28 [facility] Absolute Monocytes 0.97(H) 0.10 - 0.80 K/cmm 10/01/2020 12:28 [facility] Absolute Eosinophils 0.03 0.03 - 0.61 K/cmm 10/01/2020 12:28 [facility] ABS Basophils 0.06 0.01 - 0.11 K/cmm 10/01/2020 12:28 [facility] Absolute Immature Grans 0.05 0.00 - 0.06 K/cmm 10/01/2020 12:28 [facility] Type of Differential: Auto 10/01/2020 12:28 [facility] Blood VENOUS BLOOD / Unknown Venipuncture / Unknown 10/01/2020 11:51 EDT 10/01/2020 11:57 EDT Aubrey Javed PA-C PACKAGES & DNA PROBE ORDERABLES Performing Organization Address City/State/[facility] Co de Phone Number [facility] [address] [place] [address] * (ABNORMAL) BASIC METABOLIC PANEL (BMP) (10/01/2020 11:51 EDT) Sodium 138 136 - 145 mEq/L 10/01/2020 12:23 [facility] Potassium 3.5 3.5 - 5.0 mEq/L 10/01/2020 12:23 [facility] Chloride 98 96 - 110 mEq/L 10/01/2020 12:23 [facility] CO2 Total 27 22 - 32 mEq/L 10/01/2020 12:23 [facility] Glucose 218(H) 70 - 100 mg/dL 10/01/2020 12:23 [facility] Calcium 9.4 8.5 - 10.5 mg/dL 10/01/2020 12:23 [facility] Calculated Calcium 9.3 8.5 - 10.5 mg/dL 10/01/2020 12:23 [facility] BUN 13 10 - 26 mg/dL 10/01/2020 12:23 [facility] Creatinine 0.52 0.52 - 1.04 mg/dL 10/01/2020 12:23 EDT [facility] eGFR 124 >60 mL/min/1.7 3m2 10/01/2020 12:23 EDT [facility] Comment:eGFR calculated gil curtis CKD-EPI equation for non- Americans. Multiply eGFR by 1.16 for patients. Blood VENOUS BLOOD / Unknown Venipuncture / Unknown 10/01/2020 11:51 EDT 10/01/2020 11:57 EDT Aubrey Javed PA-C CHEMISTRY & BLOOD GA S ORDERABLES Performing Organization Address [facility] Co de Phone Number [facility] [address] [place] [address] * (ABNORMAL) POCT GLUCOSE, INTERFACED (10/01/2020 11:14 EDT) Glucose, POC 167(H) 70 - 100 mg/dL 10/01/2020 11:15 EDT [facility] [place] [id number] 10/01/2020 11:15 EDT [facility] HN LAB POC COMMENT (GLUCOSE) Test Performed by Nursing Services 10/01/2020 11:15 EDT [facility] Blood CAPILLARY BLOOD / Unknown 10/01/2020 11:14 EDT 10/01/2020 11:15 EDT Aubrey Javed PA-C POINT OF CARE TEST O RDERABLES Performing Organization Address [facility] Co de Phone Number [facility] [address] [place] [address] documented in this encounter Visit Diagnoses Diagnosis Non-intractable vomiting with nausea, unspecified vomiting type- Primary documented in this encounter Administered Medications Inactive Administered Medications - up to 3 most recent administrations Medication Order MAR Action Action Date Dose Rate Site haloperidol lactate (HALDOL) injection 3 mg 3 mg, intravenous, NOW X1, 1 dose, On Tue10/01/20 at 1145, STAT Given 10/01/2020 11:53 EDT 3 mg LORazepam (ATIVAN) injection 0.5 mg 0.5 mg, intravenous, NOW X1, 1 dose, On Tue10/01/20 at 1145, STAT Given 10/01/2020 11:53 EDT 0.5 mg sodium chloride 0.9 % BOLUS 1,000 mL 1,000 mL, intravenous, Once (Without Time Specified), 1 dose, Starting on Tue10/01/20 at 1126, Until Tue10/01/20 at 1238, STAT New Bag 10/01/2020 11:59 EDT 1,000 mL documented in this encounter Active and Recently Administered Medications Times are shown in EDT. Scheduled Medication Order 09/29/2020 09/30/2020 10/01/2020 haloperidol lactate (HALDOL) injection 3 mg (COMPLETED) 3 mg, intravenous, NOW X1, 1 dose, On Tue10/01/20 at 1145, STAT 1153 (Given - Provid er: Diego Casas RN) LORazepam (ATIVAN) injection 0.5 mg (COMPLETED) 0.5 mg, intravenous, NOW X1, 1 dose, On Tue10/01/20 at 1145, STAT 1153 (Given - Provid er: Diego Casas RN) sodium chloride 0.9 % BOLUS 1,000 mL (COMPLETED) 1,000 mL, intravenous, Once (Without Time Specified), 1 dose, Starting on Tue10/01/20 at 1126, Until Tue10/01/20 at 1238, STAT 1159 (New Bag - Prov ider: Diego Casas RN)1238 (Completed - Provider: Diego Casas RN) documented in this encounter Orders Medications Ordered That Stan ht Not Have Been Administered Count Last Ordered Date First Ordered Date metoclopramide (REGLAN) injection 10 mg 1 0 10/01/2020 documented in this encounter
--- OUTSIDE RECORDS SUMMARY | 2023-12-16 00:37 | XMS_ITS | Encounter Summary ---
Author Organization [facility] Address [address] [place] [address] Care Team Providers Care Group Director Name Role Phone Unavailable Primary Care Provider Unavailabl e Encounter Details Date Type Department Care Team (Latest Contact Info) Description 09/04/2020 Travel Social History Tobacco Use Types Packs/Day [...] 16:24 EDT documented as of this encounter Functional [...] Office Visit [facility] Adult Primary Care - [address] [phone] Carrington Calderon MD [address] [phone] 02/27/2024 8:30 EDT Telemedicine [facility] Sleep Program - [address] [address] Rn, Sleep 02/29/2024 10:30 EDT Appointment [facility] Radiology Nuclear Medicine and PET - [address] [phone] 02/29/2024 14:30 EDT Appointment [facility] Radiology Nuclear Medicine and PET - [address] [phone] 03/01/2024 8:00 EDT Appointment [facility] Radiology Nuclear Medicine and PET - [address] [phone] 03/01/2024 9:30 EDT Appointment [facility] Radiology Nuclear Medicine and PET - [address] [phone] documented as of this encounter Visit Diagnoses Not on filedocumented in this encounter
--- OUTSIDE RECORDS SUMMARY | 2023-12-16 00:37 | XMS_ITS | Encounter Summary ---
Author Organization [facility] Address [address] [place] [address] Care Team Providers Care Diamond Selector Name Role Phone Unavailable Primary Care Provider Unavailabl e Encounter Details Date Type Department Care Team (Late st Contact Info) Description 09/02/2020 Orders Only [facility] Endocrinology - [facility] [address] [place] [address] Sara Zafar, GUSTAVO [address] [facility] [address] [place] [address] Type 2 diabetes mellitus with hyperglycemia, with long-term current use of insulin ([facility]) (Primary Dx) Social History Tobacco Use Types [...] [facility] Adult Primary Care - [address] [phone] Carrington Calderon MD [address] [phone] 02/27/2024 8:30 EDT Telemedicine [facility] Sleep Program - [address] [phone] Rn, Sleep 02/29/2024 10:30 EDT Appointment [facility] Radiology Nuclear Medicine and PET - [address] [address] 02/29/2024 14:30 EDT [facility] Radiology Nuclear Medicine and PET - [address] [address] 03/01/2024 8:00 EDT [facility] Radiology Nuclear Medicine and PET - [address] [address] 03/01/2024 9:30 EDT [facility] PET - [address] [address] documented as of this encounter Visit Diagnoses Diagnosis Type 2 diabetes mellitus with hyperglycemia, with long-term current use of insulin ([facility])- Primary documented in this encounter
--- OUTSIDE RECORDS SUMMARY | 2023-12-16 00:38 | XMS_ITS | Encounter Summary ---
Author Organization [facility] Address [address] [place] [address] Care Team Providers Care Process Checker Name Role Phone Unavailable Primary Care Provider Unavailabl e Encounter Details Date Type Department Care Team (Latest Contact Info) Description 08/08/2020 Travel Social History Tobacco Use Types Packs/Day Years Used Date Smoking Tobacco: Every Day Cigarettes 0.3 10 Started: 11/10/2010; Last attempted to quit: 08/07/2019 Smokeless Tobacco: Never Comments:06/13/20 actively try ing to quit Alcohol Use Standard Drinks/Week Comments Not Currently [...] have Coronavirus / COVID-19? No / Unsure 08/08/2020 18:56 EST documented as of this encounter Functional Status Functional Status Response Date of Assess ment Are you deaf or do you have serious difficulty h earing? No 05/04/2020 Are you blind or do you have serious difficulty seeing, even when wearing glasses? No 05/04/2020 Do you have serious difficul ty walking or climbing stairs? (5 years old or older) No 05/04/2020 Do you have difficulty dress ing or bathing? (5 years old or older) No 05/04/2020 Because of a physical, menta l, or emotional condition, do you have difficulty doing errands alone such as visiting a doctor's office or shopping? (15 years old or older) No 05/04/2020 Cognitive Status Response Date of Assessm ent Because of a physical, menta l, or emotional condition, do you have serious difficulty concentrating, remembering, or making decisions? (5 years old or older) No 05/04/2020 documented as of this encounter Plan of Treatment Upcoming Encounters Date Type Department Care Team (Late st Contact Info) Description 02/21/2024 9:45 EDT Office Visit [facility] Adult Primary Care - [address] [phone] Carrington Calderon MD [address] [place] [phone] 02/27/2024 8:30 EDT Telemedicine [facility] Sleep Program - [address] [address] Rn, Sleep 02/29/2024 10:30 EDT Appointment [facility] Radiology Nuclear Medicine and PET - [address] [phone] 02/29/2024 14:30 EDT Appointment [facility] Radiology Nuclear Medicine and PET - [address] [phone] 03/01/2024 8:00 EDT Appointment [facility] Radiology Nuclear Medicine and PET - [address] [phone] 03/01/2024 9:30 EDT Appointment [facility] Radiology Nuclear Medicine and PET - [address] [address] documented as of this encounter Visit Diagnoses Not on filedocumented in this encounter
--- OUTSIDE RECORDS SUMMARY | 2023-12-16 00:38 | XMS_ITS | Encounter Summary ---
Author Organization [facility] Address [address] [place] [address] Care Team Providers Care Real Estate Photographer Name Role Phone Unavailable Primary Care Provider Unavailabl e Encounter Details Date Type Department Care Team (Latest Contact Info) Description 08/12/2020 10:30 EST - 08/12/2020 23:59 EST Hospital Encounter [facility] Pre-Surgical Testing [address] [place] [address], [place] [id number] Discharge Disposition: Home or Self Care Social [...] 18:56 EST documented as of this encounter Last Filed Vital Signs Vital Sign Reading Time Taken Comments Blood Pressure - - Pulse - - Temperature - - Respiratory Rate - - Oxygen Saturation - - Inhaled Oxygen Concentration - - Weight 88.5 kg (195 lb) 08/12/2020 1017 EST Height 162.6 cm (5' 4) 08/12/2020 1017 EST Body Mass Index 33.47 08/12/2020 1017 EST documented in this encounter Functional Status [...] mL 3 12/04/2019 12/21/2021 lancets One Touch DelRuffaloCODY or other brand compatible with lancing device and covered by patient's insurance. 100 Each 5 10/01/2019 10/01/2020 LORazepam (ATIVAN) 0.5 mg tablet Take 1 Tab by mouth 3 times daily as needed for Anxiety. Daily Max: 1.5 mg 30 Tab 08/07/2020 08/14/2020 metoclopramide HCl (REGLAN) 10 mg tablet Take [...] or Self Care documented in this encounter Progress Notes * Peyton Mendieta RN - 08/12/2020 1030 EST COVID 19 Screening Perioperative at time of PAT Please document by exception (only check those that apply). Have you had any of the following symptoms recently? Pt denies except Yes Chronic ? Cough x X pt attempting to quit smoking Shortness of breath or difficulty breathing Fever Chills Fatigue Muscle or body aches x X chronic low back pain Severe Headache New loss of taste or smell Sore throat Congestion or runny nose Rash Nausea, vomiting, or diarrhea (rare in adults. More common in children) Please elaborate if yes: If a chronic symptom is reported use your judgement if an anesthesia review is needed. Have you been in close contact with someone who has been diagnosed with Covid 19? Pt denies (close contact, within 6 feet of any person known to have Coronavirus in the past 14 days) If past COVID + test results in chart: ??? Complete call, Place for Anesthesia Review ??? Do not give COVID+ DOS arrival instructions unless anes review deems necessary Negative COVID screen: Please file negative COVID screening under a progress note Negative screening is no symptoms or patient reporting a chronic symptom that does not need an anesthesia review Positive COVID screen: Patient answers yes to the question(s) and it is not a chronic symptom RN to flag this chart for anesthesia review and complete call Please file positive COVID screening under a PAT note If patient develops any of these symptoms between now and their surgery date instruct them to call us back at [phone] to report symptoms (If patient is in Surgical Admissions and answers yes, please notify Surgery and Anesthesia team). Follow proper precautions- yellow mask to patient/family. Visitor Policy: -IP or OP PeriOp visitors: ??? One non sick visitor may accompany patient to surgical wait area ??? No visitors to PreOp or PACU o Exceptions: special needs and pediatrics ??? Support person can remain with the patient until they are called to Preop ??? The support person has the choice to leave at that time and get a phone update from the surgeonor remain in the surgical waiting area for an in person update from the surgeon in one of our consult rooms ??? Once they have been updated by the surgeon, they may exit the building for inpatients. Outpatient visitor can wait in the surgical wait area until patient is ready for discharge. -IP: Inpatient unit: ??? No visitors at this time -Pediatric patient: ??? One parent can come with child DOS, and is allowed with child in PreOp/PACU ??? Due to COVID 19 no parents are allowed to go back to OR. ??? Pediatric inpatients: one caregiver at bedside and one overnight -Children under age of 16 y.o. are not permitted. -Only ADA service animals are permitted into the hospital. All other animals, including previously approved therapy/support animals, are not allowed at this time. (No animals will be allowed into Preop, OR, or PACU) PEYTON MENDIETA RN documented in this encounter OR Notes * Preprocedure Instructions - Peyton Mendieta RN - 08/12/2020 1030 EST Cristy Luo has been instructed as follows regarding medication administration for the day ofthe scheduled procedure. Date of Surgery: 08/20/20 Instructions for Taking Medications Day of Surgery Medication Sig Last Dose Hold DOS Take DOS blood glucose meter One Touch Verio Flex meter. Yes blood glucose test strips One Touch Verio IQ or other brand compatible with meter and covered by patient's insurance. Testing QID. Yes gabapentin (NEURONTIN) 300 mg capsule Take 1 Cap by mouth 3 times daily. Yes insulin aspart U-100 (NOVOLOG FLEXPEN) 100 unit/mL (3 mL) injectable pen Inject 9 Units into the skin 3 times daily with meals. yes insulin glargine (LANTUS SOLOSTAR) 100 unit/mL (3 mL) injection pen Inject 30 Units into the skin at bedtime for 90 days. Patient taking differently: Inject 40 Units into the skin at bedtime. Pt will take 32 units eveningprior to surgery lancets One Touch Delica or other brand compatible with lancing device and covered by patient's insurance. Yes LORazepam (ATIVAN) 0.5 mg tablet Take 1 Tab by mouth 3 times daily as needed for Anxiety. Daily Max: 1.5 mg Yes-prn metoclopramide HCl (REGLAN) 10 mg tablet Take 1 Tab by mouth 4 times daily as needed for up to 23 days for Nausea. 09/03/20 Yes-prn nicotine (NICODERM CQ) 7 mg/24 hr patch Apply one patch only daily on skin without hair. Apply to adifferent skin site at the same time each day. Yes for post op use ondansetron (ZOFRAN-ODT) 4 mg disintegrating tablet Take 1 Tab by mouth every 8 hours as needed forup to 30 days for Nausea. 09/06/20 Yes-prn TENS unit and electrodes combo pack 1 Each by misc (non-drug; combo route) route daily. Yes Pt instructed as noted above. Pt verbalized understanding at this time. Pt has allergy to NSAIDS PEYTON MENDIETA RN documented in this encounter Plan of Treatment Upcoming Encounters Date Type Department Care Team (Late st Contact Info) Description 02/21/2024 9:45 EDT Office Visit [facility] Adult Primary Care - [address] [phone] Carrington Calderon MD [address] [place] [phone] 02/27/2024 8:30 EDT Telemedicine [facility] Sleep Program - [address] [phone] Rn, Sleep 02/29/2024 10:30 EDT Appointment [facility] Radiology Nuclear Medicine and PET [address] [id number] 02/29/2024 14:30 EDT Appointment [facility] Radiology Nuclear Medicine and PET [address] [id number] 03/01/2024 8:00 EDT Appointment [facility] Radiology Nuclear Medicine and PET [address] [id number] 03/01/2024 9:30 EDT Appointment [facility] Radiology Nuclear Medicine and PET [address] [id number] documented as of this encounter Visit Diagnoses Not on filedocumented in this encounter
--- OUTSIDE RECORDS SUMMARY | 2023-12-16 00:38 | XMS_ITS | Encounter Summary ---
Author Organization [facility] Address [address] [place] [address] Care Team Providers Care Community Case Manager Name Role Phone Unavailable Primary Care Provider Unavailabl e Reason for Referral * (Routine) - Receiving Office to Obtain Authorization Specialty Diagnoses / Procedures Referred By Contac t Referred To Contact [facility] [address] [place] [address] Referral ID Status Reason Start Date Expiration Date Visits Requested Visits Authorized [id number] Receiving Office to Obtain Authorization Specialty Services Required 1 1 1 * (Routine) - Receiving Office to Obtain Authorization Specialty Diagnoses / Procedures Referred By Contac t Referred To Contact [facility] Or [address] [place] [address] Referral ID Status Reason Start Date Expiration Date Visits Requested Visits Authorized [id number] Receiving Office to Obtain Authorization Specialty Services Required 1 1 1 Comments Call 911 anytime you think you may need emergency care. For example, call if: - You passed out (lost consciousness). - You have severe trouble breathing. - You have sudden chest pain and shortness of breath, or you cough up blood. Call your doctor now or seek immediate medical care if: - You have bright red vaginal bleeding that soaks one or more pads in an hour for two consecutive hours, or you have large clots. - You have foul-smelling discharge from your vagina. - You are sick to your stomach or cannot keep fluids down. - You have pain that does not get better after you take pain medicine. - You have loose stitches, or your incision comes open. - You have signs of infection, such as: - Increased pain, swelling, warmth, or redness. - Red streaks leading from the incision. - Pus draining from the incision. - A fever greater than 100.4 degrees F (38 degrees C). - You have signs of a blood clot, such as: - Pain in your calf, back of the knee, thigh, or groin. - Redness and swelling in your leg or groin. - You have trouble passing urine or stool, especially if you have pain or swelling in your lower belly. Watch closely for changes in your health, and be sure to contact your doctor if: - You do not have a bowel movement after taking a laxative. - You have hot flashes, sweating, flushing, or a fast heartbeat, but no fever. Reason for Visit * Auth/Cert Specialty Diagnoses / Procedures Referred By Kit t Referred To Contact Diagnoses Unwanted fertility Procedures WA LAP,RMV ADNEXAL STRUCTURE Nimisha Bay MD [address] [facility] Medical Office Building, [address] [place] [phone] Referral ID Status Reason Start Date Expiration Date Visits Re quested Visits Authorized [id number] 06/30/2020 1 1 Encounter Details Date Type Department Care Team (Latest Contact Info) Description 08/20/2020 9:59 EDT - 08/20/2020 15:35 EDT Hospital Encounter [facility] [place] OR [address] [place] [phone] Nimisha Bay MD [address] [place] [address] Medical Office Building, [address] [place] [phone] Discharge Disposition: Home or Self Care Social [...] Sign Reading Time Taken Comments Blood Pressure 134/61 08/20/2020 1515 EDT Pulse - - Temperature 36.2 ??C (97.2 ??F) 08/20/2020 1515 EDT Respiratory Rate 19 08/20/2020 1515 EDT Oxygen Saturation 100% 08/20/2020 1515 EDT Inhaled Oxygen Concentration - - Weight [...] No 05/04/2020 documented as of this encounter Medications at [...] or Self Mcfp documented in this encounter Progress Notes * [...] 08/18/2020 14:27 PGY-4 Obstetrics and Gynecology Pager #[phone] documented in this encounter H&P Notes * [...] Egan D.O. 07/28/2020 11:05 Obstetrics/Gynecology PGY-1 Pager #[phone] documented in this encounter OR Notes * OR Surgeon - Nimisha Bay MD - 08/20/2020 1436 EDT Name: Cristy Luo :1985 Date of Service:@08/20/2020?? Surgeon: Dr. Nimisha Bay Truck Spotter:Tonja Egan D.O., Jackie Oropeza M.D. Procedure: Laparoscopy [...] Egan D.O. 08/20/2020 15:22 Obstetrics/Gynecology PGY-1 Pager #[phone] ?? Attending note: I was present for the entire procedure. No complications. Nimisha Bay MD ? documented in this encounter Plan of Treatment Upcoming Encounters Date Type Department Care Team (Late st Contact Info) Description 02/21/2024 9:45 EDT Office Visit [facility] Adult Primary Care - [address] [address] Carrington Calderon MD [address] [place] [phone] 02/27/2024 8:30 EDT Telemedicine [facility] Sleep Program - [address] [phone] Rn, Sleep 02/29/2024 10:[address] [facility] Radiology Nuclear Medicine and PET [address] [phone] 02/29/2024 14:[address] [facility] Radiology Nuclear Medicine and PET [address] [phone] 03/01/2024 8:[address] [facility] Radiology Nuclear Medicine and PET [address] [phone] 03/01/2024 9:[address] [facility] Radiology Nuclear Medicine and PET [address] [phone] Scheduled Referrals Name Type Priority Associated Diagnoses [...] dimension); full cross sections identified. 08/29/2020 7:12 [facility] Attestation There was significant resident/fellow involvement in the diagnostic evaluation of this case. By the signature below, the attending physician certifies that they have personally conducted a gross and/or microscopic examination of the described specimens and rendered or confirmed the above diagnosis. 08/29/2020 7:12 [facility] at 0712 Clinical History Unwanted fertility 08/29/2020 7:12 [facility] Gross Description A. [...] spear. Sectioning reveals patent, unremarkable cut surfaces. Fire Equipment Repairer Inspector sections, to include the bisected fimbria, are submitted in A1 (shorter tube) and A2 (longer tube). EUNICE BAEZ(ASCP) 08/21/2020 9:18 08/29/2020 7:12 EDT [facility] Resident/Cash w: John Smith MD 08/29/2020 7:12 EDT [facility] Performing Lab [facility] 08/29/2020 7:12 EDT [facility] Scanned Images 08/29/2020 7:12 EDT [facility] Tissue BOTH FALLOPIAN TUBES / Unknown 08/20/2020 13:15 EDT 08/20/2020 15:16 EDT Nimisha Bay MD PATHOLOGY ORDERABLE S [facility] [address] [place] [address] * (ABNORMAL) POCT GLUCOSE, INTERFACED (08/20/2020 11:26 EDT) Glucose, POC 119(H) 70 - 100 mg/dL 08/20/2020 11:26 EDT [facility] easement worker ID [id number] 08/20/2020 11:26 EDT [facility] HN LAB POC COMMENT (GLUCOSE) Test Performed by Nursing Services 08/20/2020 11:26 EDT [facility] Blood CAPILLARY BLOOD / Unknown 08/20/2020 11:26 EDT 08/20/2020 11:26 EDT Whit Rae MD POINT OF CARE TEST O RDERABLES Performing Organization Address City/[facility]/ZIP Co de Phone Number [facility] [address] [place] [address] * TEST, URINE (08/20/2020 10:42 EDT) Test, Urine Negative Negative 08/20/2020 10:59 EDT [facility] Comment:False negative resul ts may occur in women who are beyond 5-8 weeks gestation. Diagnosis of should be based on a correlation of test results with typical clinical signs and symptoms. Urine VOIDED URINE SPECIMEN / Unknown Urine Collect / Unknown 08/20/2020 10:42 EDT 08/20/2020 10:46 EDT Whti Rae MD URINALYSIS ORDERABLE S 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 ([facility]) Type II or unspecified type diabetes mellitus with other specified manifestations, not stated as uncontrolled documented in this encounter Admitting Diagnoses Diagnosis [...] Symptomatic HR < 50, Routine, Recovery (only) chlorhexidine gluconate 2 % cloth 1 Each [...] at 1745, Nausea, Vomiting, Routine, Recovery (only) documented in this encounter Active and Recently [...] 1454 (Continued Infu kedar - Provider: Savita Langston, MARCELO) PRN Medication Order 08/18/2020 08/19/2020 08/20/2020 acetaminophen [...] atropine 0.1 mg/mL syringe 0.5 mg 1 bupivacaine (PF) (MARCAINE) 0.25 % (2.5 mg/mL) injection 1 08/20/2020 chlorhexidine gluconate 2 % cloth 1 Each 1 08/20/2020 diphenhydrAMINE (BENADRYL) i njection 12.5 mg 1 08/20/2020 HYDROmorphone (PF) (DILAUDID ) 0.5 mg/0.5 mL syringe 0.3-0.5 mg 1 08/20/2020 lactated ringers (LR) infusion 1 08/20/2020 lidocaine (PF) 10 mg/mL (1 % ) injection 2 mg 1 08/20/2020 naloxone (NARCAN) injection 0.2 mg 1 2020 ondansetron (PF) (ZOFRAN) injection 4 mg 1 08/20/2020 sodium chloride 0.9 % irrigation 1 08/21/19 21 Diet Count Last Ordered Date First Orde [...]
--- OUTSIDE RECORDS SUMMARY | 2023-12-16 00:38 | XMS_ITS | Encounter Summary ---
Author Organization [facility] Address [address] [place] [address] Care Team Providers Care Surgical Dressing Maker Name Role Phone Unavailable Primary Care Provider Unavailabl e Encounter Details Date Type Department Care Team (Latest Contact Info) Description 08/06/2020 Travel Social History Tobacco Use Types Packs/Day [...] have Coronavirus / COVID-19? No / Unsure 08/06/2020 3:57 EST documented as of this encounter Functional [...] [facility] Adult Primary Care - [address] [phone] Carrington Calderon MD [address] [place] [phone] 02/27/2024 8:30 EDT Telemedicine [facility] Sleep Program - [address] [address] Rn, Sleep 02/29/2024 10:30 EDT Appointment [facility] Radiology Nuclear Medicine and PET - [address] [id number] 02/29/2024 14:30 EDT Appointment [facility] Radiology Nuclear Medicine and PET - [address] [id number] 03/01/2024 8:00 EDT Appointment [facility] Radiology Nuclear Medicine and PET - [address] [phone] 03/01/2024 9:30 EDT Appointment [facility] Radiology Nuclear Medicine and PET - [address] [address] documented as of this encounter Visit Diagnoses Not on filedocumented in this encounter
--- OUTSIDE RECORDS SUMMARY | 2023-12-16 00:38 | XMS_ITS | Encounter Summary ---
Author Organization [facility] Address [address] [place] [address] Care Team Providers Care Blade Aligner Name Role Phone Unavailable Primary Care Provider Unavailabl e Reason for Visit * Reason Comments Hospital Discharge Follow Up Encounter Details Date Type Department Care Team (Latest Contact Info) Description 08/14/2020 9:00 EST Office Visit [facility] Adult Primary Care - [address] [phone] Tonja Alejandro PA-C [address] [place] [address] [address] [place] [phone] Type 2 diabetes mellitus with hyperosmolarity without coma, with long-term current use of insulin ([facility]) (Primary Dx); Gastroparesis Social History Tobacco Use [...] Sign Reading Time Taken Comments Blood Pressure 130/62 08/14/2020 0900 EST Pulse 84 08/14/2020 0900 EST Temperature 36.2 ??C (97.1 ??F) 08/14/2020 0900 EST Respiratory Rate 16 08/14/2020 0900 EST Oxygen Saturation - - Inhaled Oxygen Concentration - - Weight 92.5 kg (204 lb) 08/14/2020 0900 EST Height - - Body Mass Index 35.02 08/12/2020 1017 EST documented in this encounter [...] Max: 1 mg 56 Tab 08/19/2020 09/16/2020 documented in this encounter Progress Notes * FlaviaTonja chew PA-C - 08/14/2020 0900 EST Internal Medicine Primary Care Follow up Service Date: 08/14/2020 CC: follow up Presents for follow-up. She is really been struggling in regards to her chronic nausea and vomiting. Is gone to the ER a couple different times due to the severe nausea, vomiting, and dehydration. Itis suspected that she has gastroparesis. When I had spoke to her last week, she reported signs and s ymptoms of some mild blood in her vomit. This is most likely due to the retching. It was recommended for further work-up including a possible EGD and gastric emptying study. Patient is scheduled for gastric emptying study on 09/09/2020. Another issue has been patient's glucose levels. Her numbers were running in the 200/ 300s for fasting. The problem was that she was not eating due to the above symptoms. She did increase her Lantus to 42 units at night. She actually states that over the last couple days her fasting glucose has been around 120. One morning it was 100. Another morning it was 130. Over the last couple days she has actually been able to eat some. She has been taking Reglan 10 mg 4 times daily as needed. Patient reports that she does smoke marijuana as needed. Of note, patient does have a follow-up with endocrinology on 08/27/2020. Patient is also scheduled for a hysterectomy with Dr. Bay next week. She is looking forward to this she thinks that this will help her anxiety improve things at home. Past Medical and Surgical History, Family History, Social History, Problem list, Medication list and Allergies were reviewed in [facility] and updated as appropriate. Vitals BP 130/62 Pulse 84 Temp 36.2 ??C (97.1 ??F) (Tympanic) Resp 16 Wt 92.5 kg (204 lb) LMP 07/15/2020 BMI 35.02 kg/m?? General: Alert, cooperative, no distress Head: normocephalic, without obvious abnormality Respiratory: lungs are clear to auscultation bilaterally. Cardiovascular: regular rate and rhythm, S1, S2 normal, no murmurs, rubs or gallops. Gastrointestinal: positive bowel sounds, non-tender, non-distended, no hepatosplenomegaly or massesappreciated, no bruits Skin: There are no concerning rashes or abnormal skin findings. Neuro: alert and oriented x 3, normal gait Extremities: No peripheral edema. Psychological: well groomed, communicating fluently, alert, good eye contact. No cognitive distortions. Normal mood, normal affect, no evidence of hallucinations or delusions. Recent Labs/Imaging were reviewed in the EMR. A/P Chronic nausea and vomiting -Most likely gastroparesis however, other etiologies need to be ruled out. -Encouraged follow-up with GI as symptoms have been uncontrolled -Continue Reglan 10 mg up to 4 times daily as needed -Discussed gastroparesis diet -Also encouraged patient to refrain from using marijuana as sometimes this can contribute to a cyclic vomiting syndrome picture. Generalized anxiety -Patient has been under a high amount of stress in regards to everything that has been happening. -She has been using lorazepam 0.5 milligrams up to 2 times daily as needed -Explained to her that if we need to continue using this, would consider SSRI or SNRI Follow Up 1 month Tonja Alejandro PA-C [facility] 08/19/2020 9:13 I spent a total of 30 minutes [...] Info) Description 02/21/2024 9:45 EDT Office Visit [facility] Adult Primary Care [address] [phone] Carrington Calderon MD [address] [facility] [address] [place] [phone] 02/27/2024 8:30 EDT Telemedicine [facility] Sleep Program - [address] [place] [address] Rn, Sleep 02/29/2024 10:30 EDT Appointment [facility] Radiology Nuclear Medicine and PET - [address] [phone] 02/29/2024 14:30 EDT Appointment [facility] Radiology Nuclear Medicine and PET - [address] [address] 03/01/2024 8:00 EDT Appointment [facility] Radiology Nuclear Medicine and PET - [address] [address] 03/01/2024 9:30 EDT Appointment [facility] Radiology Nuclear Medicine and PET [address] [address] documented as of this encounter Visit Diagnoses Diagnosis Type 2 diabetes mellitus with hyperosmolarity without coma, with long-term current use of insulin ([facility])- Primary Gastroparesis documented in this encounter Discontinued Medications Medication Sig Discontinue Reason Start Date End Da te LORazepam (ATIVAN) 0.5 mg tablet Take 1 Tab by mouth 3 times daily as needed for Anxiety. Daily Max: 1.5 mg Reorder 08/07/2020 08/14/2020 documented as of this encounter
--- OUTSIDE RECORDS SUMMARY | 2023-12-16 00:38 | XMS_ITS | Encounter Summary ---
Author Organization [facility] Address [address] [place] [address] Care Team Providers Care Web Developer Name Role Phone Unavailable Primary Care Provider Unavailabl e Encounter Details Date Type Department Care Team (Late st Contact Info) Description 08/14/2020 Orders Only [facility] Women's Services - [address] [address] Rosa Chang RN Pre-procedure lab exam (Primary Dx) Social History Tobacco Use Types [...] as of this encounter Progress Notes * Rosa Salazar RN - 08/14/2020 1102 EST Pre-procedure COVID order placed for 08/20 documented in this encounter Plan of Treatment Upcoming Encounters Date Type Department Care Team (Late st Contact Info) Description 02/21/2024 9:45 EDT Office Visit [facility] Adult Primary Care - [address] [phone] Carrington Calderon MD [address] [phone] 02/27/2024 8:30 EDT Telemedicine [facility] Sleep Program - [address] [phone] Rn, Sleep 02/29/2024 10:30 EDT Appointment [facility] Radiology Nuclear Medicine and PET [address] [address] 02/29/2024 14:30 EDT Appointment [facility] Radiology Nuclear Medicine and PET [address] [address] 03/01/2024 8:00 EDT Appointment [facility] Radiology Nuclear Medicine and PET [address] [address] 03/01/2024 9:30 EDT Appointment [facility] Radiology Nuclear Medicine and PET [address] [address] documented as of this encounter Visit Diagnoses Diagnosis Pre-procedure lab exam- Primary Pre-procedural laboratory examination documented in this encounter
--- OUTSIDE RECORDS SUMMARY | 2023-12-16 00:38 | XMS_ITS | Encounter Summary ---
Author Organization [facility] Address [address] [place] [address] Care Team Providers Care Antitank Assault Gunner Name Role Phone Unavailable Primary Care Provider Unavailabl e Reason for Visit * Reason Onset Date Comments Surgery Scheduling 08/19/2020 Encounter Details Date Type Department Care Team (Late st Contact Info) Description 08/19/2020 Telephone [facility] Women's Services [facility] [address] [place], [place] [phone] Nimisha Bay MD 2 [facility] Medical Office Building, [address] [place] [address] Surgery Scheduling Social History Tobacco Use Types Packs/Day Years [...] encounter Miscellaneous Notes * Telephone Encounter - Mere Hanna - 08/19/2020 1607 EDT Called pt to let them know covid results came back and we're good to proceed with surgery tomorrow.Check in at 10a for surgery start time of 12p. No food after midnight and clear liquids ok until 9a. Confirmed pt's will take them home. Pt has no questions and is in agreement with plan. documented in this encounter Plan of Treatment Upcoming Encounters Date Type Department Care Team (Late st Contact Info) Description 02/21/2024 9:45 EDT Office Visit [facility] Adult Primary Care - [address] [address] Carrington Calderon MD [address] [phone] 02/27/2024 8:30 EDT Telemedicine [facility] Sleep Program - [address] [address] Rn, Sleep 02/29/2024 10:30 [facility] - [address] [phone] 02/29/2024 14:30 EDT Appointment [facility] Radiology Nuclear Medicine and PET - [address] [phone] 03/01/2024 8:00 EDT Appointment [facility] Radiology Nuclear Medicine and PET - [address] [address] 03/01/2024 9:30 EDT Appointment [facility] Radiology Nuclear Medicine and PET - [address] [phone] documented as of this encounter Visit Diagnoses Not on filedocumented in this encounter
--- OUTSIDE RECORDS SUMMARY | 2023-12-16 00:38 | XMS_ITS | Encounter Summary ---
Author Organization [facility] Address [address] [place] [address] Care Team Providers Care Dye Boarding Machine Operator Name Role Phone Unavailable Primary Care Provider Unavailabl e Encounter Details Date Type Department Care Team (Latest Contact Info) Description 08/18/2020 16:20 EDT Phlebotomy Only [facility] - [facility] [address] [place] [address] Encounter for preprocedure screening laboratory testing for COVID-19 Social History Tobacco Use Types Packs/Day Years [...] Info) Description 02/21/2024 9:45 EDT Office Visit [facility] Adult Primary Care - [address] [phone] Carrington Calderon MD 1 [facility] [address] [place] [phone] 02/27/2024 8:30 EDT Telemedicine [facility] Sleep Program - [address] [phone] Rn, Sleep 02/29/2024 10:30 EDT Appointment [facility] Radiology Nuclear Medicine and PET - [address] [phone] 02/29/2024 14:30 EDT Appointment [facility] Radiology Nuclear Medicine and [address] [address] 03/01/2024 8:00 EDT Appointment [facility] Radiology Nuclear [facility] and [address] [address] 03/01/2024 9:30 EDT Appointment [facility] Radiology Nuclear [facility] and [address] [address] documented as of this encounter Procedures Procedure Name Priority Date/Time Associated Diagnosis Comments ZZCOVID-19 TEST [facility] LAB PCR STAT 08/18/2020 16:23 EDT Encounter for preprocedure screening laboratory testing for COVID-19 COVID-19 TESTING STAT 08/18/2020 16:2 3 EDT Encounter for preprocedure screening laboratory testing for COVID-19 documented in this encounter Results * COVID-19 [facility] (08/18/2020 16:23 EDT) Swab ENTIRE NASOPHARYNX / Unknown Swab / Unknown 08/18/2020 16:23 EDT 08/18/2020 16:23 EDT Nimisha Bay MD MICROBIOLOGY - [facility] ORDERABLES [facility] LABORATORY SERVICES [address] [place] [id number] * COVID-19 TESTING (08/18/2020 16:23 EDT) COVID-19 rt-PCR Result Negative Negative 08/19/2020 15:57 EDT [facility] Comment: This test has not [...] clinical observations, patient history, and epidemiological information. This test was developed and its performance characteristics determined by [facility]. It has not been cleared or approved by the [place] Food and Drug Administration. FDA does not require this test to go through premarket FDA review. This test is used for clinical purposes. It should not be regarded as investigational or for research. This laboratory is certified under the Clinical Laboratory Improvement Amendments (CLIA) as qualified to perform high complexity clinical laboratory testing. This test is based on the [facility] COVID-19 Emergency Use Authorization (EUA) assay, with minor modification as defined by the FDA Performed on the MV [employer] 7 Flex RT-PCR System. Performing Lab [facility] 08/19/2020 15:57 EDT [facility] Swab ENTIRE NASOPHARYNX / Unknown Swab / Unknown 08/18/2020 16:23 EDT 08/18/2020 16:23 EDT Nimisha Bay MD MICROBIOLOGY - [facility] ORDERABLES [facility]OR[facility]ORY SERVICES [address] [place] [address] documented in this encounter Visit Diagnoses Diagnosis Encounter for preprocedure screening laboratory testing for COVID-19 documented in this encounter
--- OUTSIDE RECORDS SUMMARY | 2023-12-16 00:38 | XMS_ITS | Encounter Summary ---
Author Organization [facility] Address [address] [place] [address] Care Team Providers Care Medical Records Analyst Name Role Phone Unavailable Primary Care Provider Unavailabl e Reason for Referral * Radiology Services (Routine) - Closed Specialty Diagnoses / Procedures Referred By Contac t Referred To Contact Nuclear Medicine Diagnoses Generalized abdominal pain Emesis, persistent Type 2 diabetes mellitus with hyperosmolarity without coma, with long-term current use of insulin ([facility]) Procedures NM GASTRIC EMPTYING SOLID Broderick Irnee MD [address] [place] [address] Referral ID Status Reason Start Date Expiration Date Visits Re quested Visits Authorized [id number] Closed 08/10/2020 1 1 Reason for Visit * Reason Comments Dehydration Pt wheeled into tria ge with mother c/o unable to keep anything down x4 days. Endorsing CP, hx anxiety. Seen here 3x in 4 days for similar. BG 213mg/dL. * Auth/Cert Specialty Diagnoses / Procedures Referred By Contac t Referred To Contact Diagnoses Abdominal pain Generalized abdominal pain Emesis, persistent Referral ID Status Reason Start Date Expiration Date Visits Re quested Visits Authorized [id number] 1 1 Encounter Details Date Type Department Care Team (Late st Contact Info) Description 08/08/2020 18:57 EST - 08/10/2020 13:56 EST Hospital Encounter [facility] General Medicine Unit [address] [place] [address] Elise Charles MD [address] [facility], Level [address] [place] [address] Keshav Dumont MD [address] [address] Bouchra Costello MD [address] [address] Generalized abdominal pain (Primary Dx); Emesis, persistent; Type 2 diabetes mellitus with hyperosmolarity without coma, with long-term current use of insulin ([facility]); Dehydration; Gastroparesis Discharge Disposition: Home or Self Care Social [...] Sign Reading Time Taken Comments Blood Pressure 109/75 08/10/2020 0535 EST Pulse 84 08/09/2020 1347 EST Temperature 36.7 ??C (98.1 ??F) 08/10/2020 0535 EST Respiratory Rate 19 08/10/2020 0535 EST Oxygen Saturation 98% 08/10/2020 0535 EST Inhaled Oxygen Concentration - - Weight 87 kg (191 lb 12.8 oz) 08/09/2020 0058 ES T Height 162.6 cm (5' 4) 08/09/2020 0058 EST Body Mass Index 32.92 08/09/2020 0058 EST documented in this encounter Functional Status [...] 08/09/2020 documented as of this encounter Discharge Summaries * Bouchra Costello MD - 08/10/2020 1114 EST Medicine Discharge Summary Primary Care Provider: Tonja Alejandro Attending Physician: Bouchra Costello MD Admit Date: 08/08/2020 Discharge Date: 08/10/20 Disposition: Home or self care Reason for Admission: nausea / vomiting, abd pain, dehydration Principal/Final Diagnosis: Generalized abdominal pain, dehydration, suspected gastroparesis Additional Problems Managed in the Hospital Active Hospital Problems Diagnosis Date Noted ??? Gastroparesis 08/10/2020 SUSPECTED - still needs to be eval with gastric emptying study (as of 08/10/20) Resolved Hospital Problems Diagnosis Date Noted Date Resolved ??? *Generalized abdominal pain 08/09/2020 08/10/2020 ??? Dehydration 08/10/2020 08/10/2020 ??? Abdominal pain 08/09/2020 08/10/2020 ??? Emesis, persistent 08/09/2020 08/10/2020 Hospital Course: 35 y.o. female with relevant PMH of anxiety, prior morbid obesity s/p weight loss, poorly controlled T2DM c/b osteomyelitis s/p left toe amputation in late 2019 and a recent miscarriage who presentedto the ED with nausea, vomiting, abdominal pain, poor PO intake, and possible altered mental status. In the ED patient was afebrile with a HR of 89, BP of 103/64, Spo2 100%. Labs showed a Na 136, K 3.7, Bicarb 12, Cr 0.59. WBC 16, Hgb 15.3, plt 416. U/a showed 3+ ketones. LP was obtained and showed a glucose of 126, total protein 55, < [address] head was unremarkable and CT A/P was unremarkable. She was given IV dilaudid, IV ativan, reglan, zofran, and several liters of LR. 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 Possible EGD was therefore deferred to outpatient setting and GI was not involved in her care during this admit. Suspected driving factor was gastroparesis in the setting of poorly controlled diabetes. She improved drastically s/p IVF and was able to eat the following day without any e/o N/V. There was no further e/o AMS after she was admitted. We attempted to get a gastric emptying study performed while she was here however unfortunately they are not offered on weekends so that was also deferred to outpatient setting. This study was ordered prior to d/c. She was d/c to home / self care on 08/10/20. She is to follow up with her PCP and endocrinology. Condition at Discharge: Improved Clinical Issues Needing Follow-up: - Consider EGD - F/u Gastric emptying study - F/u with endocrinology - F/u pending blood cultures - Please confirm with pt the need to be NPO prior to gastric emptying study (she was told this prior to d/c as well) Results Pending at Discharge Test results still pending from this admission Procedure Component Value Units Date/Time Bacterial Culture, Blood [[id number]] Collected: 08/08/202058 Lab Status: In process Specimen: Blood, Venous Updated: 08/08/202116 Bacterial Culture, Blood [[id number]] Collected: 08/08/202099 Lab Status: In process Specimen: Blood, Venous Updated: 08/08/202116 Upcoming Appointments Aug 12, 2020 10:30 PAT Call with [facility] PAT CALL ROOM 4 [facility] Pre-Surgical Testing (--) [address] [facility] [address] Aug 17, 2020 9:00 Mobile Lab Testing with [facility] Through [facility] ([facility] All Departments) [address] [place] [id number] Diabetes Specialist: Review appointment date and time above. Arrival Instructions: Before I let you go, I need to read you a set of instructions. Please provide me with your full attention. The testing site is located at [address] [place] [address]. When you pull into the entrance stay to the left. Once you arrive follow the signs posted. Please arrive no later than 10 minutes before your appointment. Being punctual is crucial to ensureall patient???s are seen in a safe and timely manner. You are required to arrive in a closed vehicle, please do not arrive on foot or on a bicycle/motorcycle. Please stay in your car with your windows rolled up and with the recirculating air on unless instructed otherwise. Please be sure to bring an ID with you and your mobile phone. If you don???t have an ID try your best to find something that identifies you. Whenever possible please come alone. Please do not bring pets. If having a pet with you is unavoidable, please be prepared to have them secured within a pet carrier or with a harness/seatbelt throughout the entire testing process. This will ensure your safety as well as the safety of staff performing the procedure. After testing, you should plan to self isolate until your procedure or you are directed otherwise. Aug 27, 2020 10:30 Follow Up Visit with Sara Zafar APRN [facility] Endocrinology - [place] (--) [address] [place] [facility] [address] Sep 04, 2020 16:15 (Arrive by 16:00) Post Op Visit with Clarke Joseph MD [facility] Women's Services [facility] (--) [address] [facility] [address] Sep 10, 2020 15:00 Office Visit with Elza Navarro DPM [facility] Foot & Ankle Program - [facility] (--) [address] [facility] [address] [facility] [address] Follow-up appointments and procedures Amb Consult/Follow Up Primary Care Physician Reason for Request: Hospital f/u Authorizing Provider: Broderick Irene MD Follow-up labs and tests NM GASTRIC EMPTYING SOLID Complete by: Aug 17, 2020 (Approximate) Comments: Pt with poorly controlled T2DM and symptoms c/w gastroparesis. Looking to do GASTRIC EMPTYING study. There were three options (Solid, with small bowel transit, with small bowel and colon) so if I picked the incorrect one please change Process Instructions: NPO after midnight for adults. Authorizing Provider: Broderick Irene MD Discharge Handoff Communication Contact was not made at the time of discharge Discharge Summary Completed By: Broderick Irene DO Internal Medicine PGY-1 Cortext preferred, #[id number] (via PAS) 08/10/20 11:11 Attestation: Pt seen and examined. I have reviewed Dr. Irene's note and agree with his summary asoutlined above. DOS 08/10/2020. Bouchra Costello MD, MPH documented in this encounter Discharge Instructions * Discharge Instr - AVS First Page* Broderick Irene MD - 08/10/2020 8:24 EST Please follow-up with your PCP as soon as able Please follow-up with your experimental assembler We have ordered you a Gastric Emptying study. Expect a call to schedule it. You will only be able to have WATER and BLACK COFFEE / TEA starting at MIDNIGHT on the day of the exam. Please call your primary care physician with any questions or concerns. Please return or seek urgent care if you experience any chest pain, shortness of breath, abdominal pain, black/tarry or bloody stools, bloody or red-tinged vomit, fevers/chills, intractable nausea, or any other concerns. Thank you for choosing [facility] for your care! documented in this encounter Medications at Time [...] patient's insurance. Testing QID. 100 Each 5 10/01/2019 08/11/2020 gabapentin (NEURONTIN) 300 mg capsule Take 1 [...] mouth 4 times daily as needed for Nausea. 15 Tab 08/06/2020 08/11/2020 nicotine (NICODERM CQ) 7 mg/24 hr patch [...] Departure Means Destination Home or Self Care Car Home documented in this encounter Progress Notes * Peggy Lamas - 08/09/2020 1444 EST Initial Case Management/Social Work Assessment and Discharge Plan/Readmission Risk Assessment REASON FOR ADMISSION: Generalized abdominal pain Patient understands reason for admission: Yes PATIENT INFO VERIFIED: PCP Type of housing (single family, condo, apartment, intermediate, single room occupancy, [facility] funded hotel room, group usp) - duplex Who does the patient live with? Spouse and roommate Does the patient have access to their own bedroom/bathroom/kitchen - or is it shared with others? shared Name of housing complex (ex [facility], [facility], etc)- N/A Housing Authority/Managing Organization - N/A Community Care Providers (insurance case manager, [facility] nurse, etc) name and contact information- none LIVING ARRANGEMENTS AND ACCESSIBILITY ISSUES: Living Arrangements: The patient lives in a duplex with her spouse and roommate. Levels: 2 Stairs to enter: 4 or more Handicap access: Railings into home, Railings to upstairs, Railings to downstairs Bathroom located on bedroom level?: Yes What in home social supports are available to the patient? Spouse / significant other(roommate) Is 27/12 care available? No ADVANCED DIRECTIVES, POA &/or COLST IN PLACE: Healthcare Directive: No, patient does not have advance directive for healthcare treatment Information Provided on Healthcare Directives: No Information on Healthcare Directives Requested: No DIRECTIVES FOR FINANCES: Directive For Finances: No TRANSPORTATION: Transportation: Family CULTURAL, NONDENOMINATIONAL and/or LANGUAGE factors affecting health care/discharge planning: Spiritual/Cultural Requests: None Insurance Information: Medical Insurance: Yes Type of insurance: Medicaid Medicaid Type: Community Referred to patient financial services: No Nutrition: Diabetic diet DISCHARGE RISK ASSESSMENT: History of mental illness;Polypharmacy, > 7 medications;Repeat hospitalizations/ED visits;Diagnosis of Diabetes;Requires assistance with ADLs/IADLs Total # selected above: Score > or equal to 5: This patient is HIGH RISK for re-hospitalization Tentative plan to address the risk of re-hospitalization for those at HIGH MODERATE RISK: Increasedcommunity/outpatient support RAPT TOOL: Gender: Female Ambulation distance: 2 or more blocks (600ft) Gait device: None Community Services: Home health, MOW, SAS-none of one time a week Will you live with someone who will care for you?: Yes RAPT Tool Score: 9 SBIRT: SASQ (Single Alcohol Screening Question) How many times in the past year have you had 4 or more drinks in a single day?: Never How many times in the past year have you used an illegal drug or used a prescription medication fornon-medical reasons?: Never Intervention in place/initiated?: No, not indicated FUNCTIONAL STATUS: Activities patient requires assistance: Unable to assess Assistive Device: None COMMUNITY RESOURCES/SUPPORTS: Primary Care Provider: Tonja Alejandro PCP Verified: Specialists: Endocrinology Type of Home Health Services: None DME Provider: None Pharmacy: [id number] - [facility] [address] [facility] [address] [facility] ([facility]) - [address] [address] Home Health: not prior to admission Other: none POST HOSPITAL TRANSITION PLAN: Home with support from spouse District Plant Supervisor spoke to the patient's spouse. No home health needs identified at this time. Her spouse can transport her home when she is medically ready for discharge. PEGGY LAMAS RN CM MSN 08/09/2020 14:44 restaurant front manager * Bouchra Costello MD - 08/09/2020 0956 EST Medicine Progress Note Service Date: 08/09/2020 Admit Date: 08/08/2020 18:57 Reason for Admission: 35 y.o. female with relevant PMH of anxiety, prior morbid obesity s/p weight loss, poorly controlled T2DM c/b osteomyelitis s/p left toe amputation in late 2019 and a recent miscarriage who presented to the ED with nausea, vomiting, abdominal pain, poor PO intake, and possiblealtered mental status. Fortunately CT head, LP, and CT A/P were unremarkable and she is much improved s/p IVF. Suspect driving factor is gastroparesis in the setting of poorly controlled diabetes. 24 Hour Events: - Admitted Subjective/Objective Subjective Cristy Luo feels well overall this morning. Able to eat for the first time in too long this morning. Tolerated a couple bites of sami muffin as well as taking liquid PO without nausea or vomiting. She clarifies that she has not had any blood in her vomitus since Tuesday at which time she had a little bit. She had more red in her vomit that prior Tuesday. Otherwise, denies any chest pain, SOB, palpitations, dizziness/lightheadedness, abdominal pain, N/V, diarrhea, constipation, or headache. Review of Systems: As above Objective Vital Signs: Patient Vitals for the past 24 hrs: BP Temp Temp src Pulse Resp SpO2 Height Weight 08/09/20 0514 104/63 36.6 ??C (97.9 ??F) Tympanic -- 17 97 % -- -- 08/09/20 0058 -- -- -- -- -- -- 162.6 cm (64) 87 kg (191 lb 12.8 oz) 08/09/20 005 123/74 36.6 ??C (97.9 ??F) Tympanic -- 16 98 % -- -- 08/09/20 0000 103/64 -- -- -- 16 -- -- -- 08/08/20 2300 101/71 -- -- -- -- -- -- -- 08/08/202199 123/78 -- -- -- -- 100 % -- -- 08/08/202114 126/75 -- -- -- -- 99 % -- -- 08/08/201999 136/77 -- -- -- -- 98 % -- -- 08/08/20 1930 -- -- -- -- 12 100 % -- -- 08/08/201901 137/78 -- -- -- 16 100 % -- -- 08/08/201899 127/80 -- -- -- 21 -- -- -- 08/08/20 1855 (!) 148/105 37.3 ??C (99.1 ??F) Temporal 82 18 100 % -- 90.7 kg (200 lb) I&O: Intake/Output Summary (Last 24 hours) at 08/09/2020 0956 Last data filed at 08/08/2020 2230 Gross per 24 hour Intake 1000 ml Output -- Net 1000 ml Physical Exam: General: Alert & awake,sitting upright in bed in NAD. HEENT: NCAT, MMM. Resp: Normal WOB, CTAB to anterior auscultation. No supplemental oxygen in place. CV: RRR, no extra heart sounds. Abdominal: Non-distended, BS +, soft, non-TTP. Extr: Pulses 2+ x 4 extremities, No peripheral edema. L great toe s/p amputation. Neuro: No focal deficits, A&O x 4/4, moves all 4 extremities against gravity, responds appropriately. Medications: Current Facility-Administered Medications Medication Route Frequency ??? dextrose 5 % in lactated ringers infusion intravenous CONTINUOUS ??? dextrose 50 % solution 12.5 g intravenous PRN ??? enoxaparin (LOVENOX) injection 40 mg subcutaneous DAILY ??? gabapentin (NEURONTIN) capsule 100 mg oral BID (BREAKFAST/LUNCH) ??? gabapentin (NEURONTIN) capsule 300 mg oral QHS ??? glucagon injection 1 mg intramuscular PRN ??? insulin aspart U-100 (NOVOLOG FLEXPEN) injection subcutaneous TID WC ??? [START ON 08/10/2020] insulin glargine (LANTUS SOLOSTAR) injection pen 30 Units subcutaneous DAILY L.A. INSULIN ??? lidocaine (PF) 10 mg/mL (1 %) injection 2 mg intradermal PRN ??? LORazepam (ATIVAN) tablet 0.5 mg oral TID PRN ??? metoclopramide HCl (REGLAN) tablet 10 mg oral QID PRN ??? ondansetron (ZOFRAN-ODT) disintegrating tablet 4 mg oral Q8H PRN ??? pantoprazole (PROTONIX) injection 40 mg intravenous BID Labs: CBC: Recent Labs 08/08/20190608/09/20 0704 WBC 16.16* 11.82 HGB 15.3* 13.3 HCT 41.4 36.3 MCV 84 84 PLT 416* 340 BMP: Recent Labs 08/08/20 19008/09/20 0704 NA 136 134* K 3.7 3.4* CL 91* 95* CO2 28 30 BUN 12 -- CREATININE 0.59 0.47* CALCIUM 10.5 -- CALCCA 9.8 -- SERGLU 224* -- Lactic Acid: Recent Labs 08/08/20 2100 LACTICACID 1.2 LFTs: Recent Labs 08/08/20 190 ALT 23 AST 29 ALKPHOS 97 TBIL 1.0 TP 7.8 LABALBU 4.9 Hemoglobin A1C: Lab Results Component Value Date HGBA1C 9.7 (H) 07/28/2020 BGLs: Recent Labs 08/08/20 1854 08/09/20 0147 08/09/20 0421 08/09/20 0923 GLUCOSEPOC 213* 173* 219* 179* UA: Recent Labs 08/08/20 2232 COLOR Yellow CLARITYU Hazy* GLUCOSEU Trace* BILIRUBINUR Negative KETONES 3+* LABSPEC 1.024 PHUR 7.5 PROTEINUA 1+* UROBILINOGEN 4 * NITRITE Negative LEUKESTER Negative WBCU 0 - 3 RBCU 0 - 2 BACTERIA None Seen LABCAST <=10 Imaging: CT A/P 08/06 1. No acute abnormality identified in the abdomen or pelvis. 2. Small nonobstructing left intrarenal calculus. 3. Small hiatal hernia. ?? CT head 08/08/20 No evidence of recent intracranial hemorrhage, acute infarction, or mass. Micro: - COVID negative Assessment/Plan Assessment 35 y.o. female with PMHx of anxiety, prior morbid obesity s/p weight loss, poorly controlled T2DM c/b osteomyelitis s/p left toe amputation in late 2019 and a recent miscarriage who presented to the ED with nausea, vomiting, abdominal pain, poor PO intake, and possible altered mental status. Fortunately CT head, LP, and CT A/P were unremarkable and she is much improved s/p IVF. Suspect driving factor is gastroparesis in the setting of poorly controlled diabetes. Plan #Nausea/Vomiting/Abdominal Pain Dehydration Possible gastroparesis Chest pain could be concerning for possible small александр donohue vs esophageal irritation from vomiting although less likely clinically significant even if present as she has not had any blood in her vomitus at all for several days now. Her symptoms are much improved s/p IVF. --Consider GI consult for consideration of endoscopy +/- gastric emptying study -- d/c D5 LR for 1L @ 100 cc/hr as she is eating / drinking now - Push PO fluids --[place] 10 QID prn --Zofran 4 mg Q 8 prn - Consider outpatient EGD - Would likely benefit from gastric emptying study however unfortunately they are not offered on the weekends. If she continues to improve at her current rate will likely defer to outpatient. ?? #T2DM: A1c 9.7 07/28/20 --Continue dose reduced glargine 30 (from field captain 40) --Hold mealtime insulin while not taking PO --SSI --Gabapentin 100 BID and 300 at bedtime ?? #Anxiety: --field captain lorazepam 0.5 mg TID prn Code status: Full Code Diet: DIET CONSISTENT CARBOHYDRATE VTE Prophylaxis: Enoxaparin (Lovenox) 40 mg SQ daily Consults: None Discharge Plan: unclear at this time, pending improvement of above. Possibly tomorrow if she continues to improve vs early next week if she plateaus or worsens and will need further w/u such as gastric emptying study Broderick Irene, DO Internal Medicine PGY-1, #[id number] 08/09/20 9:56 Attestation: Pt seen and examined; I have reviewed Dr. Irene's note and agree with his findings, A and P as outlined above, with my additions in blue. I have personally reviewed the laboratory and radiology results. I have personally spoken with cadetaallan and Dr. Dumont ( Hosp). DOS 08/09/2020. Bouchra Costello MD, MPH * Kylah Owen RN - 08/09/[address] second peripheral line per blue slip. Pt has 18G in right a/c that was placed by ED 08/08/20. Last assessment performed, documented 08/09/20 @ 1:24. Upon arrival this VAT RN told that the request was intended for a replacement of the current piv due to location. Attempted new IV insertion x 1 without success. Pt declined second attempt, stating she did not want the current PIV replaced at this time. documented in this encounter H&P Notes * Mervin Kamara MD - 08/09/2020 0029 EST Medicine Admission History & Physical Service Date: 08/09/2020 Admit Date: 08/08/2020 18:57 Primary Care Provider: Tonja Alejandro Chief Complaint: Abdominal Pain HPI Cristy Luo is a 35 y.o. female with a PMHx of T2DM, osteomyelitis s/p left toe amputation inJanuary of and a recent miscarriage who presented to the ED with nausea, vomiting, abdominal pain, and poor PO intake. Ms. Luo was admitted with osteomyelitis in April of this year. She ultimately underwent amputation of the left great toe. Since that time, she has been struggling with intermittent abdominal pain, nausea, and vomiting. She has been working with her PCP who was planning tostart further workup for gastroparesis including an emptying study and possible endoscopy. However,over the last week, she has had intractable nausea and vomiting with an inability to keep anything down at all. She has also developed substernal chest pain which she attributes both to the retching and anxiety. She has been trying to take zofran and reglan without any significant relief. She has noted occasional flecks of blood in her vomit but no glen hematemesis. She denies melena or hematochezia. She also describes a diffuse abdominal discomfort which she thinks may be from hunger since she hasn't been eating. Since she hasn't been eating anything she stopped taking her insulin over the past few days and her blood sugars have been running in the 200s. Yesterday morning, she had one episode of diarrhea but has not had any fever or chills. ED course: Upon presentation, patient was afebrile with a HR of 89, BP of 103/64, Spo2 100%. Labs showed a Na 136, K 3.7, Bicarb 12, Cr 0.59. WBC 16, Hgb 15.3, plt 416. U/a showed 3+ ketones. LP was obtained and showed a glucose of 126, total protein 55, < [address] head was unremarkable and CT A/P was unremarkable. She was given IV dilaudid, IV ativan, reglan, zofran, and 1L of LR. Review of Systems A complete 10 point ROS was performed and pertinent positive and negative findings listed in HPI, otherwise negative. Past Medical History: Diagnosis Date ??? Anxiety ??? Arthritis 12/05/19- Spine- told years ago ??? Depression ??? Diabetes ([facility]) A1c 10.3 on 11/28/2019 - poorly controlled ??? Difficulty opening mouth 06/13/2020 pain with opening mouth wide ??? Does not exercise 06/13/2020 due to infected toe ??? History of general anesthesia ??? Hx of ectopic 06/20/2020 ??? Irritable bowel syndrome 06/13/2020 ? ? Nausea & vomiting occasionally ??? Obesity, unspecified ??? Osteomyelitis ([facility]) of left great toe ??? Peripheral neuropathy 12/05/19- Bilateral feet ??? Skin problem 11/28/19- Per MD notes, left foot with redness and swelling, and open wound. WBC count 14.38. MRI today to rule out osteomyelitis. ??? Spontaneous miscarriage 09/04/201502/18, 08/19. Followed by Dr. López/[facility] in O[facility] Past Surgical History: Procedure Laterality Date ??? BREAST CYST EXCISION lumpectomy ??? DILATION AND CURETTAGE OF UTERUS ??? DILATION AND CURETTAGE OF UTERUS ??? DILATION AND CURETTAGE OF UTERUS ??? DILATION AND CURETTAGE OF UTERUS ??? DILATION AND CURETTAGE OF UTERUS ??? DILATION AND CURETTAGE OF UTERUS ??? DILATION AND CURETTAGE OF UTERUS ??? OTHER SURGICAL HISTORY tailbone (mostlikely pilonidal cyst) ??? PILONIDAL CYST EXCISION Social History Tobacco Use ??? Smoking status: Current Every Day Smoker Packs/day: 0.25 Years: 10.00 Pack years: 2.50 Types: Cigarettes Start date: 11/10/2010 Last attempt to quit: 08/07/2019 Years since quittin.0 ??? Smokeless tobacco: Never Used ??? Tobacco comment: 06/13/20 actively trying to quit Substance Use Topics ??? Alcohol use: Not Currently Alcohol/week: 0.0 standard drinks Frequency: Monthly or less Drinks per session: 1 or 2 Binge frequency: Never Family History Problem Relation Age of Onset ??? Cancer Maternal Grandmother Breast ??? Diabetes Paternal Grandmother ??? Diabetes Maternal Aunt ??? Diabetes Paternal Aunt ??? Diabetes Paternal Uncle Medications Prior to Admission Medication Sig ??? blood glucose meter One Touch Verio Flex meter. ??? blood glucose test strips One Touch Verio IQ or other brand compatible with meter and covered by patient's insurance. Testing QID. ??? gabapentin (NEURONTIN) 300 mg capsule Take 1 Cap by mouth 3 times daily. ??? insulin aspart U-100 (NOVOLOG FLEXPEN) 100 unit/mL (3 mL) injectable pen Inject 9 Units into the skin 3 times daily with meals. ??? insulin glargine (LANTUS SOLOSTAR) 100 unit/mL (3 mL) injection pen Inject 30 Units into the skin at bedtime for 90 days. (Patient taking differently: Inject 40 Units into the skin at bedtime. ) ??? lancets One Touch Delica or other brand compatible with lancing device and covered by patient'sinsurance. ??? LORazepam (ATIVAN) 0.5 mg tablet Take 1 Tab by mouth 3 times daily as needed for Anxiety. DailyMax: 1.5 mg ??? metoclopramide HCl (REGLAN) 10 mg tablet Take 1 Tab by mouth 4 times daily as needed for Nausea. ??? nicotine (NICODERM CQ) 7 mg/24 hr patch Apply one patch only daily on skin without hair. Apply to a different skin site at the same time each day. (Patient not taking: Reported on 07/28/2020) ??? ondansetron (ZOFRAN-ODT) 4 mg disintegrating tablet Take 1 Tab by mouth every 8 hours as neededfor up to 30 days for Nausea. ??? TENS unit and electrodes combo pack 1 Each by misc (non-drug; combo route) route daily. Allergies Allergen Reactions ??? Citalopram Other (See Comments) suicidal ideation, approx 2012 ??? Other - See Comments Swelling of throat pomergrante ??? Advil [Ibuprofen] Hives Objective Vitals Temp: [37.3 ??C (99.1 ??F)] , Heart Rate: [72 BPM-103 BPM] , Pulse: [82] , Resp: [12-21] , BP: (101-148)/(64-105) , SpO2: [98 %-100 %] , Numeric Pain Level (Scale 1-10): 2 Weight: Weight : 90.7 kg (200 lb) Body mass index is 34.33 kg/m??. Physical Exam VS: BP 123/74 (BP Cuff Location: Right arm, BP Patient Position: Semi fowlers) Pulse 82 Temp 36.6 ??C (97.9 ??F) (Tympanic) Resp 16 Ht 162.6 cm (64) Wt 87 kg (191 lb 12.8 oz) SpO2 98% BMI 32.92 kg/m?? General: Pleasant female patient in NAD HEENT: NCAT, no scleral icterus Neck: Supple, no carotid bruit CVS: Normal S1, S2, RRR, no m/r/g Chest: Chest CTA b/l with good air movement, no rales, no wheezing Abdomen: Soft, NT, ND, BS+ Extremities: No LE edema Skin: No rashes or lesions on exposed skin Neuro: No focal deficits appreciated Psych: Affect appropriate Pressure Ulcer Present on admission? No Labs I have personally reviewed Recent Labs 08/08/201906 WBC 16.16* RBC 4.94 HGB 15.3* HCT 41.4 MCV 84 MCH 31.0 MCHC 37.0* PLT 416* NEUTROABS 10.63* SEDRATE 12 Recent Labs 08/08/201906 NA 136 K 3.7 CL 91* CO2 28 BUN 12 CREATININE 0.59 CALCIUM 10.5 LABALBU 4.9 Recent Labs 08/08/20 1907 TBIL 1.0 ALKPHOS 97 AST 29 ALT 23 LIPASE 194 Recent Labs 08/08/20 2232 COLOR Yellow CLARITYU Hazy* GLUCOSEU Trace* BILIRUBINUR Negative KETONES 3+* LABSPEC 1.024 PHUR 7.5 PROTEINUA 1+* UROBILINOGEN 4 * NITRITE Negative LEUKESTER Negative WBCU 0 - 3 RBCU 0 - 2 BACTERIA None Seen LABCAST <=[address] A/P 08/06 IMPRESSION 1. No acute abnormality identified in the abdomen or pelvis. 2. Small nonobstructing left intrarenal calculus. 3. Small hiatal hernia. CT head 08/08/20 IMPRESSION No evidence of recent intracranial hemorrhage, acute infarction, or mass. Assessment Cristy Luo is a 35 y.o. female with a PMHx significant for T2DM, osteomyelitis s/p left toe amputation in June and a recent miscarriage who presented to the ED with nausea, vomiting, abdominal pain, poor PO intake, and possible altered mental status. Fortunately CT head, LP, and CT A/P were unremarkable. Given the patient's poor PO intake will admit for hydration and further monitoring. I suspect that her symptoms could be due to severe gastroparesis given her poorly controlled diabetes. Plan #Nausea/Vomiting/Abdominal Pain: ?Possible gastroparesis. Chest pain concerning for possible small александр donohue vs esophageal irritation from vomiting --Consider GI consult for consideration of endoscopy +/- gastric emptying study --D5 LR for 1L @ 100 cc/hr --[place] 10 QID prn --Zofran 4 mg Q 8 prn #T2DM: A1c 9.7 07/28/20 --Dose reduce glargine to 30 from field captain 40 --Hold mealtime insulin while not taking PO --SSI --Gabapentin 100 BID and 300 at bedtime #Anxiety: --field captain lorazepam 0.5 mg TID prn VTE Prophylaxis Pharmacologic Prophylaxis: Enoxaparin (Lovenox) 40 mg SQ daily Code: Full Discharge Plan Uncertain at this time Consults None Admission Status Observation. Anticipated duration of hospitalization is less than two midnights. Mervin Kamara MD 08/09/2020 0:29 Associated attestation - Keshav Dumont MD - 08/09/2020 0247 EST ATTENDING ATTESTATION: I have interviewed and examined the patient on 08/09/2020. I have personally reviewed the ECG, laboratory data, imaging studies, and prior records. I have discussed the case with Dr. Telles (EM resident) and Dr. Kamara (IM resident). I agree with the findings and plan of care as documented in the resident's note. 35 yo woman with a PMH as outlined below, admitted for worsening N/V/abdominal pain; concerning forgastroparesis. Would discuss with GI tomorrow regarding further workup, including possible EGD. Will start IV PPI for now and IV fluids. UA consistent with starvation ketosis. Will decrease CONSTRUCTION QUALITY CONTROL MANAGER insulin. Initially concern for AMS but LP not consistent with infection and patient alert and oriented during my evaluation. Will need to follow up final read imaging studies. Keshav Dumont MD 08/09/2020 2:42 documented in this encounter ED Notes * Fran Ding - 08/08/2020 2301 EST I, Fran Ding, notified of KETONES 3+ on 08/08/2020 at 23:01. * Elise Charles MD - 08/08/2020 1921 ESTAssociated Order(s): Lumbar Puncture This patient received an evaluation and medical screening exam for emergent medical conditions at the [facility] on 08/08/2020. This note was created and authored by ASUNCION TELLES MD working under the supervision of Elise Charles MD. This documentation is recorded by Lena Echols acting as Scribe under the direction and presence ofElise Charles MD and ASUNCION TELLES MD. Elise Charles MD and ASUNCION TELLES MD: We personally performed the services recorded by carter in our presence. We confirm the scribe's documentation has been reviewed by us to accuratelyand completely record our work, treatment, procedures, and medical decision making. ED Attending's Supervisory Statement I, Elise Charles MD, performed a history and exam of this patient and discussed the case with the resident. I have reviewed and edited this note, and the documentation is consistent with my findings, assessment and plan. I fully participated in the medical decision making. HPI Cristy Luo is a 35 y.o. female with a history significant for type 2 diabetes mellitus, osteomyelitis w/left toe amputation (06/2020), and recent miscarriage (06/2020) who presents to the ED forabdominal pain and emesis. Per the patient, she has been experiencing abdominal pain accompanied bynausea w/emesis, diarrhea, and weakness since Tuesday (08/04). She has had two visits to the [facility] ED prior to today for similar symptoms. Outpatient treatment with antiemetics has not improved her symptoms. The patient states that she has been unable to tolerate p.o. intake since Tuesday. Per her mother, the patient has been confused and disoriented over the past approximately 24 hours. The patient has had 4X episodes of blood-tinged, bilious emesis today. She also reports several episodes of diarrhea, including one that was noted to be bloody. The patient has not had recent antibiotic use, travel, or known sick contacts. During her previous visits this week, the patient has had an extensive work-up including CT of the abdomen and pelvis with no significant findings. The patient endorses marijuana use for anxiety. History was provided by: The patient and prior medical records Patient's pertinent PMH, FH, SH were reviewed and updated PRN. ROS A 10-point review of systems was performed. The patient answered negative to all questions with theexceptions of those explicitly detailed as positives in the HPI. Pertinent negatives are also explicitly stated. Physical Exam Vital Signs Vitals Reassessment?: Yes Temp: 37.3 ??C (99.1 ??F) Temp src: Temporal Pulse: 82 Heart Rate: 98 BPM Resp: 16 SpO2: 100 % BP: 137/78 BP MAP: 92 mm Hg BP Device: BP Machine BP Patient Position: Sitting BP Cuff Location: Left arm Nunez Agitation Sedation Scale: 0 O2 Device: None (Room air) Nursing notes and vital signs were reviewed. Constitutional: In moderate distress due to pain. Awake and alert during interview and examination,though patient continues to state that she feels dizzy and confused. Patient observed to have bilious emesis prior to examination. HEENT: PEERL, EOMI, clear conjunctivae. Mouth: Moist oral mucosa without apparent lesions. Neck: Full ROM, no cervical LAD. Heart: Tachycardic, appears well perfused; no abnormal heart sounds on auscultation. Lungs: No audible airway noises. Bilateral chest rise. No respiratory distress or accessory muscle use. Lungs clear to auscultation bilaterally. Abdomen: Diffuse abdominal tenderness to palpation without rebound or guarding. GI: Hemoccult negative, no glen blood noted on rectal examination. Skin: No overt rashes or lesions on exposed skin. MSK: Moving extremities spontaneously, warm, radial/DP/PT pulses 2+ b/l. Neuro: CN 3, 4, 6, 7 evaluated and intact. Normal speech, strength and sensation to light touch wnlin UE/LE/b/l. Results An EKG was obtained and independently interpreted: EKG shows normal sinus rhythm at 86 bpm. Regular. Normal axis. Normal Intervals. No ST elevations or depressions. Diffuse T wave flattening. Laboratory results independently reviewed, significant for: -Chloride: 91 -Glucose: 224 -Beta hydroxybutyrate: 2.7 -WBC: 16.16 -Absolute neutrophils: 10.63 -LFTs wnl -CRP, ESR wnl -Lactate wnl -Urinalysis: 3+ ketones, negative nitrite, negative leukocyte esterase no bacteria Imaging obtained was reviewed and independently interpreted: CT HEAD WO CONTRAST IMPRESSION: No evidence of recent intracranial hemorrhage, acute infarction, or mass. Procedures Lumbar Puncture Date/Time: 08/08/2020 22:31 Performed by: Asuncion Telles MD Authorized by: Elise Charles MD Consent: Consent obtained: Verbal Consent given by: Patient Risks discussed: Bleeding, headache, nerve damage, infection, pain and repeat procedure Alternatives discussed: No treatment Clinton protocol: Procedure explained and questions answered to patient or proxy's satisfaction: yes Relevant documents present and verified: yes Test results available and properly labeled: yes Imaging studies available: yes Required blood products, implants, devices, and special equipment available: yes Immediately prior to procedure a time out was called: yes Site/side marked: yes Patient identity confirmed: Verbally with patient and arm band Pre-procedure details: Procedure purpose: Diagnostic Preparation: Patient was prepped and draped in usual sterile fashion Anesthesia (see MAR for exact dosages): Anesthesia method: Local infiltration Local anesthetic: Lidocaine 1% w/o epi Procedure details: Lumbar space: L4-L5 interspace Patient position: Sitting Needle gauge: 22 Needle type: Spinal needle - Quincke tip Needle length (in): 3.5 Ultrasound guidance: no Number of attempts: 1 Fluid appearance: Clear Tubes of fluid: 4 Total volume (ml): 4 Post-procedure: Puncture site: Adhesive bandage applied Patient tolerance of procedure: Tolerated well, no immediate complications Comments: I personally supervised the procedure performed and was physically present at the bedside for the entirety of the procedure. The patient has been informed and understands [...] a required reconsideration has been completed? N/A Medical Decision Making / ED Course Cristy Luo is a 35 y.o. female with history significant for type 2 diabetes mellitus, osteomyelitis w/left toe amputation (06/2020), and recent miscarriage (06/2020) who presents to the ED for abdominal pain and nausea with emesis. Differential diagnosis on arrival includes but is not limited to DKA, UTI, osteomyelitis, sepsis, meningitis, gastroenteritis, and gastroparesis. Plan of care includes CBC to evaluate for evidence of anemia and/or acute infection, CMP to evaluate for evidence ofelectrolyte abnormality and/or abdominal organ dysfunction, lumbar puncture with CSF analysis to evaluate for evidence of meningitis/encephalitis and urinalysis evaluate for UTI. The patient presents to the [facility] ED endorsing abdominal pain accompanied by nausea w/emesis since early Tuesday morning. Of note, the patient has been evaluated at the [facility] ED twice this week prior to the current visit. Outpatient treatment with antiemetics and analgesics has not provided relief, and the patient endorses inability to tolerate p.o. intake. She endorses continuing bilious emesis and diarrhea. Per the patient's mother, the patient has been confused over the past approximately 24-48 hours. On physical examination, diffuse abdominal tenderness without rebound or guarding was noted. Rectal examination revealed no glen or occult blood. Given the patient's persistence symptoms and increased WBC, there is concern for infection. No evidence of infection was apparent near the patient's recent amputation site. Additionally, ESR and CRP were within normal limits, suggesting that osteomyelitis is less likely at this time. Blood cultures were collected to evaluate for bacteremia. C SF was collected to evaluate for meningitis/encephalitis and showed no abnormalities. Urinalysis showed no evidence of UTI. LFTs and lipase were within normal limits, making acute hepatitis and pancreatitis less likely. During ED course, the patient was administered IV metoclopramide and ondansetron for nausea. IV hydromorphone was administered for pain. The patient was administered IV lactated Ringer solution. The patient's case was discussed with the internal medicine service, and she was admitted under Dr. Dumont for further care and evaluation. Please see the procedure note entered by the Emergency Medicine resident. I personally supervised the Lumbar Puncture performed and was physically present at the bedside for the pendleton and critical portions of the procedure. Clinical Impression Final diagnoses: Generalized abdominal pain Emesis, persistent Disposition Upon departure from the Emergency Department, the patient's pain seemed to be 1 on a zero to ten scale. Condition at departure from the Emergency Department: Stable Disposition decisions were made weighing risks and benefits of hospitalization vs. outpatient treatment, the risk for further decompensation, and the patient's wishes. Admitted * Latasha Kiran - 08/08/20201906 EST 12 Lead EKG Performed by LATASHA KIRAN and shown to Elise Charles MD. * Olive Echavarria RN - 08/08/20201900 EST Per mother, took ativan at 1600. Full assist from wheelchair to stretcher, minimally responsive. Soon after laying flat, pt awoke, anxious, tearful. * Nahum Alanis RN - 08/08/2020 1857 EST Pt unable to maintain seated position in triage, falling asleep mid sentence. documented in this encounter Miscellaneous Notes * Plan of Care - Fawn Sheth RN - 08/10/2020 1302 EST Problem: Daily Care Plan Goals Goal: Care Plan Documentation Flowsheets (Taken 08/10/2020 0728) Area of Focus: Pain/ Comfort Goal This Shift: no abd pain Note: Data: HD # 2 for abdominal pain with N/V. Patient reported no abdominal pain or nausea this shift. She consumed all meals. FS have been under 200. Action: Insulin coverage. Discharge instructions Response: pt signed dc instructions. She understands to follow up with PCP DC home at 1230 FAWN SHETH RN 08/10/2020 12:58 * Plan of Care - Katie Quesada RN - 08/10/2020 0556 EST Problem: Daily Care Plan Goals Goal: Care Plan Documentation 08/10/2020 0557 by Katie Quesada RN Outcome: Ongoing Flowsheets (Taken 08/10/2020 0005) Area of Focus: Sleep Goal This Shift: Patient will have an adequate amount of sleep this shift Data: Assumed care 2300. Admitted with abdominal pain. A&Ox3. Independent in room. Action: Hourly checks. Clustered care to promote rest. Response: Patient resting in bed, call calloway is within reach. Will continue to monitor. KATIE QUESADA RN 08/10/2020 5:58 * Plan of Care - Eryn Goss RN - 08/09/2020 2200 EST Pt in tears at shift change d/t anxiety. Provided with TID PRN lorazepam per request. Pt able to eat 50% of salmon, dinner roll, broccoli and diet gingerale this evening. Denies nausea at this time, WCTM * Plan of Care - Vinicius Blood RN - 08/09/2020 1532 EST Care plan focus: Pt will tolerate food. Data: Pt denies n/v this morning and is feeling hungry. Action: Meds per MD order. Glucose monitoring. Response: Pt tolerated crackers, then breakfast, then lunch. VINICIUS BLOOD RN 08/09/2020 15:32 * Plan of Care - Jayne Perera RN - 08/09/2020 0544 EST Data: admitted around 1am from home. Having nausea and vomiting and abdl pain. Ox3. On room air. Known diabetic, feeling nauseous. Not eating or keeping much. Able to walk to the bathroom. No complaints of pain. Action: oriented to the khanna. Hourly rounding done. Due meds given as per AUG. Lantus pen has not come from pharmacy. Called then 3 times but no syringe came to the khanna.doctor was informed of situation and happy for the lantus to be changed for 9am - msg left for pharmacist. Response: Stella would want to try and eat. No vomiting overnight. Doctor informed and novolog orders changed. JAYNE PERERA RN 08/09/2020 5:44 documented in this encounter Plan of Treatment Upcoming Encounters Date Type Department Care Team (Late st Contact Info) Description 02/21/2024 9:45 EDT Office Visit [facility] [place] [address] Carrington Calderon MD 1 [facility] [address] [place] [address] 02/27/2024 8:30 EDT Telemedicine [facility] Sleep Program - [address] [place] [address] Rn, Sleep 02/29/2024 10:30 EDT Appointment [facility] Radiology Nuclear Medicine and PET - [address] [address] 02/29/2024 14:30 EDT Appointment [facility] Radiology Nuclear Medicine and PET - [address] [address] 03/01/2024 8:00 EDT Appointment [facility] Radiology Nuclear Medicine and PET - [address] [address] 03/01/2024 9:30 EDT Appointment [facility] Radiology Nuclear Medicine and PET [address] [address] documented as of this encounter Procedures Procedure Name Priority Date/Time Associated Diagnosis Comments ECG REPORT - SCANNED 08/25/2020 13:23 EDT POCT GLUCOSE, INTERFACED Routine 08/10/2020 11:56 EST POCT GLUCOSE, INTERFACED Routine 08/10/2020 7:13 EST COMPLETE BLOOD COUNT Routine 08/10/2020 6:39 EST CREATININE Routine 08/10/2020 6:39 EST ELECTROLYTES Routine 08/10/2020 6:39 EST POCT GLUCOSE, INTERFACED Routine 08/09/2020 20:46 EST POCT GLUCOSE, INTERFACED Routine 08/09/2020 17:06 EST POCT GLUCOSE, INTERFACED Routine 08/09/2020 13:22 EST POCT GLUCOSE, INTERFACED Routine 08/09/2020 9:23 EST COMPLETE BLOOD COUNT Routine 08/09/2020 7:04 EST CREATININE Routine 08/09/2020 7:04 EST ELECTROLYTES Routine 08/09/2020 7:04 EST POCT GLUCOSE, INTERFACED Routine 08/09/2020 4:21 EST POCT GLUCOSE, INTERFACED Routine 08/09/2020 1:47 EST CELL COUNT, CSF Routine 08/08/2020 23:12 EST BACTERIAL CULTURE/SMEAR Routine 08/09/19 23:12 EST CELL COUNT TUBE 1, CSF - RBC ONLY, INDICATED FOR A BLOODY TAP Routine 08/08/2020 23:12 EST CELL COUNT,CSF Routine 08/08/2020 23:12 EST TOTAL PROTEIN, CSF Routine 08/08/2020 23 :12 EST GLUCOSE CSF Routine 08/08/2020 23:12 EST URINE CHEMICAL (DIP) & SEDIMENT (MICRO) WITH REFLEX TO CULTURE STAT 08/08/2020 22:32 EST TEST, URINE Add-On 08/08/2020 22:[address] HEAD WO CONTRAST STAT 08/08/2020 2 1:15 EST ZZCOVID-19 TEST [facility] PCR Today 08/08/2020 21:00 EST COVID-19 TESTING Routine 08/08/2020 21:0 0 EST BACTERIAL CULTURE, BLOOD Routine 08/08/2020 21:00 EST LACTIC ACID STAT 08/08/2020 21:00 EST BACTERIAL CULTURE, BLOOD Routine 08/08/2020 20:59 EST ED LUMBAR PUNCTURE BEDSIDE OR CLINIC PERFORMED Routine 08/08/2020 19:21 EST HOLD SST STAT 08/08/2020 19:07 EST HOLD LAVENDER TOP STAT 08/08/2020 19: 07 EST HOLD GREEN TOP STAT 08/08/2020 19:07 EST HOLD BLUE TOP STAT 08/08/2020 19:07 EST BETA HYDROXYBUTYRATE STAT Add-on 08/08/2020 19:07 EST SED RATE Add-On 08/08/2020 19:07 EST COMPLETE BLOOD COUNT AND DIFFERENTIAL STAT Add-on 08/08/2020 19:07 EST C REACTIVE PROTEIN Add-On 08/08/2020 19 :07 EST LIPASE STAT Add-on 08/08/2020 19:07 EST COMPREHENSIVE METABOLIC PANEL (CMP) STAT Add-on 08/08/2020 19:07 EST EKG 12-LEAD STAT 08/08/2020 19:04 EST POCT GLUCOSE, INTERFACED Routine 08/08/2020 18:54 EST documented in this encounter Results * NM GASTRIC EMPTYING SOLID (09/09/2020 15:05 EDT) Anatomical Region Laterality Modality Body Nuclear Medicine 09/09/2020 16:1 0 EDT Impressions 09/09/2020 16:10 EDT Delayed gastric emptying for solid food. References: Manny et al. [place] Journal of Gastroenterology 2000. Kev et al. Gastroenterology 2006 Roshni et al. [place] Journal of Gastroenterology 2006. Narrative 09/09/2020 16:10 [...] for solid food. References: Manny et al. [place] Journal of Gastroenterology 2000. Kev et al. Gastroenterology 2006 Roshni et al. [place] Journal of Gastroenterology 2006. Broderick Irene MD IMG NM ORDERABLES * ECG REPORT - SCANNED (08/25/2020 13:23 EDT) 08/25/2020 13:2 3 EDT Scan 2 Buckler And Lacer PROCEDURE/MINOR BRAULIO GICAL ORDERABLES * (ABNORMAL) POCT GLUCOSE, INTERFACED (08/10/2020 11:56 EST) Glucose, POC 157(H) 70 - 100 mg/dL 08/10/2020 12:01 [facility] medical advisor ID [id number] 08/10/2020 12:01 EST [facility] HN LAB POC COMMENT (GLUCOSE) Test Performed by Nursing Services 08/10/2020 12:01 [facility] Blood CAPILLARY BLOOD / Unknown 08/10/2020 11:56 EST 08/10/2020 12:01 EST Mervin Kamara MD POINT OF CARE TEST O RDERABLES [facility] [address] [place] [address] * (ABNORMAL) POCT GLUCOSE, INTERFACED (08/10/2020 7:13 EST) Glucose, POC 195(H) 70 - 100 mg/dL 08/10/2020 7:15 EST [facility] medical advisor ID [id number] 08/10/2020 7:15 [facility] HN LAB POC COMMENT (GLUCOSE) Test Performed by Nursing Services 08/10/2020 7:15 [facility] Blood CAPILLARY BLOOD / Unknown 08/10/2020 7:13 EST 08/10/2020 7:15 EST Mervin Kamara MD POINT OF CARE TEST O RDERABLES [facility] [address] [place] [address] * CREATININE (08/10/2020 6:39 EST) Creatinine 0.60 0.52 - 1.04 mg/dL 08/10/2020 7:52 EST [facility] eGFR 118 >60 mL/min/1.7 3m2 08/10/2020 7:52 EST [facility] Comment:eGFR calculated gil curtis CKD-EPI equation for non- Americans. Multiply eGFR by 1.16 for patients. Blood VENOUS BLOOD / Unknown Venipuncture / Unknown 08/10/2020 6:39 EST 08/10/2020 7:22 EST Mervin Kamara MD CHEMISTRY & BLOOD GA S ORDERABLES Performing Organization Address [facility] Co de Phone Number [facility] [address] [place] [address] * ELECTROLYTES (08/10/2020 6:39 EST) Sodium 138 136 - 145 mEq/L 08/10/2020 7:52 [facility] Potassium 3.7 3.5 - 5.0 mEq/L 08/10/2020 7:52 [facility] Chloride 96 96 - 110 mEq/L 08/10/2020 7:52 [facility] CO2 Total 31 22 - 32 mEq/L 08/10/2020 7:52 [facility] Blood VENOUS BLOOD / Unknown Venipuncture / Unknown 08/10/2020 6:39 EST 08/10/2020 7:22 EST Mervin Kamara MD CHEMISTRY & BLOOD GA S ORDERABLES Performing Organization Address City/[facility]/ZIP Co de Phone Number [facility] [address] [place] [address] * (ABNORMAL) COMPLETE BLOOD COUNT (08/10/2020 6:39 EST) WBC 10.21 4.00 - 12.40 K/cmm 08/10/2020 7:13 [facility] RBC 4.70 3.86 - 5.04 M/cmm 08/10/2020 7:13 [facility] Hemoglobin 14.6 11.6 - 15.2 gm/dL 08/10/2020 7:13 [facility] HCT 40.3 34.9 - 44.4 % 08/10/2020 7:13 [facility] MCV 86 81 - 98 fl 08/10/2020 7:13 [facility] MCH 31.1 26.7 - 33.3 pg 08/10/2020 7:13 [facility] MCHC 36.2(H) 32.1 - 35.9 gm/dL 08/10/2020 7:13 [facility] RDW-CV 12.0 <14.7 % 08/10/2020 7:13 [facility] RDW-SD 37.5 <50.4 fl 08/10/2020 7:13 [facility] PLT 343 141 - 377 K/cmm 08/10/2020 7:13 [facility] MPV 9.8 9.5 - 12.7 fl 08/10/2020 7:13 [facility] Blood VENOUS BLOOD / Unknown Venipuncture / Unknown 08/10/2020 6:39 EST 08/10/2020 7:00 EST Mervin Kamara MD HEMATOLOGY & PF4 ORD ERABLES [facility] [address] [place] [address] * (ABNORMAL) POCT GLUCOSE, INTERFACED (08/09/2020 20:46 EST) Glucose, POC 218(H) 70 - 100 mg/dL 08/09/2020 20:54 [facility] medical advisor ID [id number] 08/09/2020 20:54 EST [facility] HN LAB POC COMMENT (GLUCOSE) Test Performed by Nursing Services 08/09/2020 20:54 EST [facility] Blood CAPILLARY BLOOD / Unknown 08/09/2020 20:46 EST 08/09/2020 20:54 EST Mervin Kamara MD POINT OF CARE TEST O RDERADONALDO Performing Organization Address City/[facility]/ZIP Co de Phone Number [facility] [address] [place] [address] * (ABNORMAL) POCT GLUCOSE, INTERFACED (08/09/2020 17:06 EST) Glucose, POC 209(H) 70 - 100 mg/dL 08/09/2020 17:11 EST [facility] medical advisor ID [id number] 08/09/2020 17:11 EST [facility] HN LAB POC COMMENT (GLUCOSE) Test Performed by Nursing Services 08/09/2020 17:11 EST [facility] Blood CAPILLARY BLOOD / Unknown 08/09/2020 17:06 EST 08/09/2020 17:10 EST Mervin Kamara MD POINT OF CARE TEST O MARILIA Performing Organization Address [facility] Co de Phone Number [facility] [address] [place] [address] * (ABNORMAL) POCT GLUCOSE, INTERFACED (08/09/2020 13:22 EST) Glucose, POC 244(H) 70 - 100 mg/dL 08/09/2020 13:24 EST [facility] medical advisor ID [id number] 08/09/2020 13:24 EST [facility] HN LAB POC COMMENT (GLUCOSE) Test Performed by Nursing Services 08/09/2020 13:24 EST [facility] Blood CAPILLARY BLOOD / Unknown 08/09/2020 13:22 EST 08/09/2020 13:24 EST Mervin Kamara MD POINT OF CARE TEST O RDERABLES Performing Organization Address [facility]/ZIP Co de Phone Number [facility] [address] [place] [address] * (ABNORMAL) POCT GLUCOSE, INTERFACED (08/09/2020 9:23 EST) Glucose, POC 179(H) 70 - 100 mg/dL 08/09/2020 9:24 EST [facility] medical advisor ID [id number] 08/09/2020 9:24 EST [facility] HN LAB POC COMMENT (GLUCOSE) Test Performed by Nursing Services 08/09/2020 9:24 EST [facility] Blood CAPILLARY BLOOD / Unknown 08/09/2020 9:23 EST 08/09/2020 9:24 EST Keshav Dumont MD POINT OF CARE TEST ORDERABLES Performing Organization Address [facility] Co de Phone Number [facility] [address] [place] [address] * (ABNORMAL) CREATININE (08/09/2020 7:04 EST) Creatinine 0.47(L) 0.52 - 1.04 mg/dL 08/09/2020 8:32 EST [facility] eGFR 128 >60 mL/min/1.7 3m2 08/09/2020 8:32 EST [facility] Comment:eGFR calculated gil curtis CKD-EPI equation for non- Americans. Multiply eGFR by 1.16 for patients. Blood VENOUS BLOOD / Unknown Venipuncture / Unknown 08/09/2020 7:04 EST 08/09/2020 7:58 EST Mervin Kamara MD CHEMISTRY & BLOOD GA S ORDERABLES Performing Organization Address [facility]/ZIP Co de Phone Number [facility] [address] [place] [address] * (ABNORMAL) ELECTROLYTES (08/09/2020 7:04 EST) Sodium 134(L) 136 - 145 mEq/L 08/09/2020 8:32 [facility] Potassium 3.4(L) 3.5 - 5.0 mEq/L 08/09/2020 8:32 [facility] Chloride 95(L) 96 - 110 mEq/L 08/09/2020 8:32 [facility] CO2 Total 30 22 - 32 mEq/L 08/09/2020 8:32 [facility] Blood VENOUS BLOOD / Unknown Venipuncture / Unknown 08/09/2020 7:04 EST 08/09/2020 7:58 EST Mervin Kamara MD CHEMISTRY & BLOOD GA S ORDERABLES Performing Organization Address City/State/[facility] Co de Phone Number [facility] [address] [place] [address] * (ABNORMAL) COMPLETE BLOOD COUNT (08/09/2020 7:04 EST) WBC 11.82 4.00 - 12.40 K/cmm 08/09/2020 7:42 [facility] RBC 4.31 3.86 - 5.04 M/cmm 08/09/2020 7:42 [facility] Hemoglobin 13.3 11.6 - 15.2 gm/dL 08/09/2020 7:42 [facility] HCT 36.3 34.9 - 44.4 % 08/09/2020 7:42 [facility] MCV 84 81 - 98 fl 08/09/2020 7:42 [facility] MCH 30.9 26.7 - 33.3 pg 08/09/2020 7:42 [facility] MCHC 36.6(H) 32.1 - 35.9 gm/dL 08/09/2020 7:42 [facility] RDW-CV 11.9 <14.7 % 08/09/2020 7:42 [facility] RDW-SD 36.4 <50.4 fl 08/09/2020 7:42 [facility] PLT 340 141 - 377 K/cmm 08/09/2020 7:42 [facility] MPV 9.7 9.5 - 12.7 fl 08/09/2020 7:42 EST [facility] Blood VENOUS BLOOD / Unknown Venipuncture / Unknown 08/09/2020 7:04 EST 08/09/2020 7:29 EST Mervin Kamara MD HEMATOLOGY & PF4 ORD ERABLES Performing Organization Address City/[facility]/ZIP Co de Phone Number [facility] [address] [place] [address] * (ABNORMAL) POCT GLUCOSE, INTERFACED (08/09/2020 4:21 EST) Glucose, POC 219(H) 70 - 100 mg/dL 08/09/2020 7:22 [facility] medical advisor ID [id number] 08/09/2020 7:22 EST [facility] HN LAB POC COMMENT (GLUCOSE) Test Performed by Nursing Services 08/09/2020 7:22 EST [facility] Blood CAPILLARY BLOOD / Unknown 08/09/2020 4:21 EST 08/09/2020 7:22 EST Keshav Dumont MD POINT OF CARE TEST ORDERABLES Performing Organization Address City/[facility]/ZIP Co de Phone Number [facility] [address] [place] [address] * (ABNORMAL) POCT GLUCOSE, INTERFACED (08/09/2020 1:47 EST) Glucose, POC 173(H) 70 - 100 mg/dL 08/09/2020 7:16 EST [facility] medical advisor ID [id number] 08/09/2020 7:16 EST [facility] HN LAB POC COMMENT (GLUCOSE) Test Performed by Nursing Services 08/09/2020 7:16 [facility] Blood CAPILLARY BLOOD / Unknown 08/09/2020 1:47 EST 08/09/2020 7:16 EST Mervin Kamara MD POINT OF CARE TEST O RDERABLES [facility] [address] [place] [address] * HN LAB CELL COUNT, CSF (08/08/2020 23:12 EST) RBC, CSF <1 /cmm 08/08/2020 23:43 [facility] Nucleated Cells, CSF <1 0 - 5 /cmm 08/08/2020 23:43 [facility] Total Volume CSF 4.8 ml 08/08/2020 23:43 [facility] Tube Cntd. 4 08/08/2020 23:43 [facility] Comment, CSF Clear and colorless 08/08/2020 23:43 [facility] Tube Vol. 1.2 ml 08/08/2020 23:43 [facility] Fluid CEREBROSPINAL FLUID SPECIMEN / Unknown 08/08/2020 23:12 EST 08/08/2020 23:22 EST Elise Charles MD HEMATOLOGY & PF4 O RDERABLES Performing Organization Address City/[facility]/ZIP Co de Phone Number [facility] [address] [place] [address] * BACTERIAL CULTURE/SMEAR (08/08/2020 23:12 EST) Organism ID No Growth 08/10/2020 8:49 [facility] Smear No Neutrophils Seen 08/10/2020 8:49 [facility] Smear No bacteria seen 08/10/2020 8:49 [facility] Fluid CEREBROSPINAL FLUID SPECIMEN / Unknown 08/08/2020 23:12 EST 08/08/2020 23:22 EST Elise Charles MD MICROBIOLOGY - GEN ERAL ORDERABLES Performing Organization Address City/[facility]/ZIP Co de Phone Number [facility] [address] [place] [address] * (ABNORMAL) TOTAL PROTEIN, CSF (08/08/2020 23:12 EST) Pathologist [facility] Total Protein, CSF 55(H) 12 - 45 mg/dL 08/09/2020 0:00 EST [facility] Fluid CEREBROSPINAL FLUID SPECIMEN / Unknown 08/08/2020 23:12 EST 08/08/2020 23:22 EST Elise Charles MD GEN LAB UNIT COLLE CT ORDERABLES Performing Organization Address [facility]/ZIP Co de Phone Number [facility] [address] [place] [address] * GLUCOSE CSF (08/08/2020 23:12 EST) [facility] Glucose, CSF 126 See Note mg/dL 08/09/2020 0:00 EST [facility] Comment: NOTE: Reference range for Glucose in CSF: 60% - 80% of the Serum/Plasma Glucose Fluid CEREBROSPINAL FLUID SPECIMEN / Unknown 08/08/2020 23:12 EST 08/08/2020 23:22 EST Elise Charles MD GEN LAB UNIT COLLE CT ORDERABLES Performing Organization Address [facility] Co de Phone Number [facility] [address] [place] [address] * CELL COUNT TUBE 1, CSF - RBC ONLY, INDICATED FOR A BLOODY TAP (08/08/2020 23:12 EST) [facility] RBC, CSF Tube#1 <1 /cmm 08/08/2020 23:43 EST [facility] Specimen Volume 1.2 ml 08/08/2020 23:43 EST [facility] Fluid CEREBROSPINAL FLUID SPECIMEN / Unknown 08/08/2020 23:12 EST 08/08/2020 23:22 EST Elise Charles MD GEN LAB UNIT COLLE CT ORDERABLES Performing Organization Address [facility]/ZIP Co de Phone Number [facility] [address] [place] [address] * TEST, URINE (08/08/2020 22:32 EST) Test, Urine Negative Negative 08/09/2020 1:36 [facility] Comment:False negative resul ts may occur in women who are beyond 5-8 weeks gestation. Diagnosis of should be based on a correlation of test results with typical clinical signs and symptoms. Urine URINE SPECIMEN COLLECTION, CLEAN CATCH / Unknown Urine Collect / Unknown 08/08/2020 22:32 EST 08/08/2020 22:34 EST Keshav Dumont MD URINALYSIS ORDERABL ES [facility] [address] [place] [address] * (ABNORMAL) URINE CHEMICAL (DIP) & SEDIMENT (MICRO) WITH REFLEX TO CULTURE (08/08/2020 22:32 EST) Color UA Yellow Colorless, Yellow 08/08/2020 23:01 [facility] Clarity UA Hazy(A) Clear 08/08/2020 23:01 [facility] Glucose UA Trace(A) Negative 08/08/2020 23:01 [facility] Bilirubin UA Negative Negative 08/08/2020 23:01 [facility] Ketones UA 3+(AA) Negative 08/08/2020 23:01 [facility] Specific [place], Urine 1.024 1.001 - 1.035 08/08/2020 23:01 [facility] Blood UA Negative Negative 08/08/2020 23:01 [facility] Urobilinogen UA 4(A) Normal mg/dL 08/08/2020 23:01 [facility] Nitrite UA Negative Negative 08/08/2020 23:01 [facility] Leukocyte Esterase UA Negative Negative 08/08/2020 23:01 [facility] Protein UA 1+(A) Negative 08/08/2020 23:01 [facility] pH, UA 7.5 4.6 - 8.0 08/08/2020 23:01 [facility] Urine RBC Count, Auto 0 - 2 0 - 2 Cells/HPF 08/08/2020 23:01 [facility] Urine WBC Count, Auto 0 - 3 0 - 3 Cells/HPF 08/08/2020 23:01 [facility] Urine Squamous Count, Auto Moderate(A) None Seen Cells/HPF 08/08/2020 23:01 [facility] Urine Hyaline Cast Count, Auto <=10 <=10 Casts/LPF 08/08/2020 23:01 [facility] Urine Bacteria Count, Auto None Seen None Seen Bacteria/HP F 08/08/2020 23:01 [facility] Urine Crystals Amorphous Phosphates Present(A) None Seen 08/08/2020 23:01 [facility] Urine URINE SPECIMEN COLLECTION, CLEAN CATCH / Unknown Urine Collect / Unknown 08/08/2020 22:32 EST 08/08/2020 22:34 EST Narrative [facility] - 08/08/2020 23:01 EST NOTE: Reflex to Urine Culture test is not indicated based on Urine Sediment Analysis results. Urine Sediment Analysis results are unreliable on urines that are unrefrigerated for >2 hrs or refrigerated >8 hrs. Asuncion Telles MD URINALYSIS ORDERABLE S Performing Organization Address City/State/[facility] Co de Phone Number [facility] [address] [place] [address] * CT HEAD WO CONTRAST (08/08/2020 21:15 EST) Anatomical Region Laterality Modality Head Computed Tomogra phy 08/09/2020 11:3 9 EST Impressions 08/09/2020 11:39 EST No evidence of recent intracranial hemorrhage, acute infarction, or mass. I have personally reviewed the images and the above interpretation and agree with the findings. Narrative 08/09/2020 11:39 EST EXAM: CT HEAD WO CONTRAST HISTORY: general weakness; recent weakness, nausea/vomiting ?? TECHNIQUE: CT head without contrast. Structured report code: NR.CT01 COMPARISON: Brain MRI 08/23/2007. FINDINGS: PARENCHYMA: No evidence of infarction. No parenchymal hemorrhage. No mass or midline shift. EXTRA-AXIAL SPACES: No extra-axial collection or mass. VENTRICULAR SYSTEM: Normal size and configuration. No obstructive hydrocephalus. VESSELS: Limited evaluation without IV contrast. Normal density in the dural venous sinuses. BONES: No concerning lesions. No evidence of fracture. ORBITS: No abnormality. PARANASAL SINUSES/MASTOID AIR CELLS: Predominantly clear. EXTRACRANIAL SOFT TISSUES: Unremarkable. Procedure Note Carrington Smith MD - 08/09/2020 EXAM: CT HEAD WO CONTRAST HISTORY: general weakness; recent weakness, nausea/vomiting TECHNIQUE: CT head without contrast. Structured report code: NR.CT01 COMPARISON: Brain MRI 08/23/2007. FINDINGS: PARENCHYMA: No evidence of infarction. No parenchymal hemorrhage. No mass or midlineshift. EXTRA-AXIAL SPACES: No extra-axial collection or mass. VENTRICULAR SYSTEM: Normal size and configuration. No obstructive hydrocephalus. VESSELS: Limited evaluation without IV contrast. Normal density in the dural venoussinuses. BONES: No concerning lesions. No evidence of fracture. ORBITS: No abnormality. PARANASAL SINUSES/MASTOID AIR CELLS: Predominantly clear. EXTRACRANIAL SOFT TISSUES: Unremarkable. IMPRESSION No evidence of recent intracranial hemorrhage, acute infarction, ormass. I have personally reviewed the images and the above interpretation andagree with the findings. Asuncion Telles MD IMG CT ORDERABLES * COVID-19 TEST [facility] PCR (08/08/2020 21:00 EST) Swab ENTIRE NASOPHARYNX / Unknown Swab / Unknown 08/08/2020 21:00 EST 08/08/2020 21:04 EST Asuncion Telles MD MICROBIOLOGY - GENER AL ORDERABLES [facility] [address] [place] [address] * COVID-19 TESTING (08/08/2020 21:00 EST) COVID-19 rt-PCR Result Negative Negative 08/08/2020 23:52 EST [facility] Comment: This test [...] history, and epidemiological information. Performed on the [employer] Fusion instrument Performing Lab [place] [facility] 08/08/2020 23:52 EST [facility] Swab ENTIRE NASOPHARYNX / Unknown Swab / Unknown 08/08/2020 21:00 EST 08/08/2020 21:04 EST Asuncion Telles MD MICROBIOLOGY - GENER AL ORDERABLES Performing Organization Address City/[facility]/ZIP Co de Phone Number [facility] [address] [place] [address] * LACTIC ACID (08/08/2020 21:00 EST) Lactic Acid 1.2 <=2.0 mmol/L 08/08/2020 21:17 EST [facility] Blood VENOUS BLOOD / Unknown Venipuncture / Unknown 08/08/2020 21:00 EST 08/08/2020 21:05 EST Asuncion Telles MD CHEMISTRY & BLOOD GA S ORDERABLES Performing Organization Address City/[facility] Co de Phone Number [facility] [address] [place] [address] * BACTERIAL CULTURE, BLOOD (08/08/2020 21:00 EST) Organism ID No Growth at 5 days 08/13/2020 21:30 EST [facility] Blood VENOUS BLOOD / Unknown Blood Culture / Unknown 08/08/2020 21:00 EST 08/08/2020 21:17 EST Asuncion Telles MD MICROBIOLOGY - GENER AL ORDERABLES Performing Organization Address [facility] Co de Phone Number [facility] [address] [place] [address] * BACTERIAL CULTURE, BLOOD (08/08/2020 20:59 EST) Organism ID No Growth at 5 days 08/13/2020 21:30 EST [facility] Blood VENOUS BLOOD / Unknown Blood Culture / Unknown 08/08/2020 20:59 EST 08/08/2020 21:17 EST Asuncion Telles MD MICROBIOLOGY - GENER AL ORDERABLES Performing Organization Address [facility] de Phone Number [facility] [address] [place] [address] * ED LUMBAR PUNCTURE BEDSIDE OR CLINIC PERFORMED (08/08/2020 19:21 EST) Narrative [facility] EKG - 08/08/2020 19:21 EST Elise Charles MD ? 08/09/2020 ??9:40 Lumbar Puncture Date/Time: 08/08/2020 22:31 Performed by: Asuncion Telles MD Authorized by: Elise Charles MD Consent: ??Consent obtained: ??Verbal ??Consent given by: ??Patient ??Risks discussed: ??Bleeding, headache, nerve damage, infection, pain and repeat procedure ??Alternatives discussed: ??No treatment [place] protocol: ??Procedure explained and questions answered to patient or proxy's satisfaction: yes ?Relevant documents present and verified: yes ?Test results available and properly labeled: yes ?Imaging studies available: yes ?Required blood products, implants, devices, and special equipment available: yes ?Immediately prior to procedure a time out was called: yes ?Site/side marked: yes ?Patient identity confirmed: ??Verbally with patient and arm band Pre-procedure details: ??Procedure purpose: ??Diagnostic ??Preparation: Patient was prepped and draped in usual sterile fashion ?? Anesthesia (see MAR for exact dosages): ??Anesthesia method: ??Local infiltration ??Local anesthetic: ??Lidocaine 1% w/o epi Procedure details: ??Lumbar space: ??L4-L5 interspace ??Patient position: ??Sitting ??Needle gauge: ??22 ??Needle type: ??Spinal needle - Quincke tip ??Needle length (in): ??3.5 ??Ultrasound guidance: no ?Number of attempts: ??1 ??Fluid appearance: ??Clear ??Tubes of fluid: ??4 ??Total volume (ml): ??4 Post-procedure: ??Puncture site: ??Adhesive bandage applied ??Patient tolerance of procedure: ??Tolerated well, no immediate complications Comments: ?? I personally supervised the procedure performed and was physically present at the bedside for the entirety of the procedure. Elise Charles MD PROCEDURE/MINOR GOLDMAN RGICAL ORDERABLES Performing Organization Address [facility] de Phone Number [facility] EKG * C REACTIVE PROTEIN (08/08/2020 19:07 EST) C-Reactive Protein <7.0 <10.0 mg/L 08/08/2020 21:11 EST [facility] Blood VENOUS BLOOD / Unknown Venipuncture / Unknown 08/08/2020 19:07 EST 08/08/2020 19:12 EST Asuncion Telles MD CHEMISTRY & BLOOD GA S ORDERABLES Performing Organization Address [facility] de Phone Number [facility] [address] [place] [address] * SED. RATE:WESTERGREN (08/08/2020 19:07 EST) Sed Rate 12 0 - 20 mm/hr 08/08/2020 21:15 EST [facility] Blood VENOUS BLOOD / Unknown Venipuncture / Unknown 08/08/2020 19:07 EST 08/08/2020 19:12 EST Asuncion Telles MD HEMATOLOGY & PF4 ORD ERABLES Performing Organization Address [facility] de Phone Number [facility] [address] [place] [address] * (ABNORMAL) BETA HYDROXYBUTYRATE (08/08/2020 19:07 EST) Beta Hydroxybutyrate 2.7(H) <0.4 mmol/L 08/08/2020 20:43 [facility] Blood VENOUS BLOOD / Unknown Venipuncture / Unknown 08/08/2020 19:07 EST 08/08/2020 19:12 EST Elise Charles MD CHEMISTRY & BLOOD GAS ORDERABLES Performing Organization Address [facility] [place]/ZIP Co de Phone Number [facility] [address] [place] [address] * LIPASE (08/08/2020 19:07 EST) Pathologist [facility] Lipase 194 <251 U/L 08/08/2020 19:35 [facility] Blood VENOUS BLOOD / Unknown Venipuncture / Unknown 08/08/2020 19:07 EST 08/08/2020 19:12 EST Asuncion Telles MD CHEMISTRY & BLOOD GA S ORDERABLES Performing Organization Address [facility] [place]/ZIP Co de Phone Number [facility] [address] [place] [address] * (ABNORMAL) COMPREHENSIVE METABOLIC PANEL (CMP) (08/08/2020 19:07 EST) Sodium 136 136 - 145 mEq/L 08/08/2020 19:38 [facility] Potassium 3.7 3.5 - 5.0 mEq/L 08/08/2020 19:38 [facility] Comment: NOTE: Interpret with caution. Prolonged sample storage may alter the result. Chloride 91(L) 96 - 110 mEq/L 08/08/2020 19:38 [facility] CO2 Total 28 22 - 32 mEq/L 08/08/2020 19:38 [facility] Comment: NOTE: Interpret with caution. Prolonged sample storage may alter the result. Glucose 224(H) 70 - 100 mg/dL 08/08/2020 19:38 [facility] BUN 12 10 - 26 mg/dL 08/08/2020 19:38 [facility] Creatinine 0.59 0.52 - 1.04 mg/dL 08/08/2020 19:38 [facility] eGFR 119 >60 mL/min/1.7 3m2 08/08/2020 19:38 [facility] Comment:eGFR calculated gil curtis CKD-EPI equation for non- Americans. Multiply eGFR by 1.16 for patients. Total Protein 7.8 6.3 - 8.2 g/dL 08/08/2020 19:38 [facility] Albumin 4.9 3.4 - 4.9 g/dL 08/08/2020 19:38 [facility] Alkaline Phosphatase 97 38 - 126 U/L 08/08/2020 19:38 [facility] AST 29 15 - 46 U/L 08/08/2020 19:38 [facility] ALT 23 <35 U/L 08/08/2020 19:38 [facility] Bilirubin, Total 1.0 <1.4 mg/dL 08/09/19 19:38 [facility] Calcium 10.5 8.5 - 10.5 mg/dL 08/08/2020 19:38 [facility] Calculated Calcium 9.8 8.5 - 10.5 mg/dL 08/08/2020 19:38 [facility] Blood VENOUS BLOOD / Unknown Venipuncture / Unknown 08/08/2020 19:07 EST 08/08/2020 19:12 EST Asuncion Telles MD CHEMISTRY & BLOOD GA S ORDERABLES [facility] [address] [place] [address] * (ABNORMAL) COMPLETE BLOOD COUNT AND DIFFERENTIAL (08/08/2020 19:07 EST) WBC 16.16(H) 4.00 - 12.40 K/cmm 08/08/2020 19:33 [facility] RBC 4.94 3.86 - 5.04 M/cmm 08/08/2020 19:33 [facility] Hemoglobin 15.3(H) 11.6 - 15.2 gm/dL 08/08/2020 19:33 [facility] HCT 41.4 34.9 - 44.4 % 08/08/2020 19:33 [facility] MCV 84 81 - 98 fl 08/08/2020 19:33 [facility] MCH 31.0 26.7 - 33.3 pg 08/08/2020 19:33 [facility] MCHC 37.0(H) 32.1 - 35.9 gm/dL 08/08/2020 19:33 [facility] RDW-CV 11.9 <14.7 % 08/08/2020 19:33 [facility] RDW-SD 36.2 <50.4 fl 08/08/2020 19:33 [facility] PLT 416(H) 141 - 377 K/cmm 08/08/2020 19:33 [facility] MPV 9.7 9.5 - 12.7 fl 08/08/2020 19:33 [facility] % Neutrophils 65.9 % 08/08/2020 19:33 [facility] % Lymphocytes 25.0 % 08/08/2020 19:33 [facility] % Monocytes 8.1 % 08/08/2020 19:33 [facility] % Eosinophils 0.4 % 08/08/2020 19:33 [facility] % Basophils 0.4 % 08/08/2020 19:33 [facility] % Immature Grans 0.2 % 08/09/19 19:33 [facility] Absolute Neutrophils 10.63(H) 2.20 - 8.85 K/cmm 08/08/2020 19:33 [facility] Absolute Lymphocytes 4.04(H) 1.09 - 3.30 K/cmm 08/08/2020 19:33 [facility] Absolute Monocytes 1.31(H) 0.10 - 0.80 K/cmm 08/08/2020 19:33 EST [facility] Absolute Eosinophils 0.07 0.03 - 0.61 K/cmm 08/08/2020 19:33 EST [facility] ABS Basophils 0.07 0.01 - 0.11 K/cmm 08/08/2020 19:33 [facility] Absolute Immature Grans 0.04 0.00 - 0.06 K/cmm 08/08/2020 19:33 [facility] Type of Differential: Auto 08/08/2020 19:33 EST [facility] Blood VENOUS BLOOD / Unknown Venipuncture / Unknown 08/08/2020 19:07 EST 08/08/2020 19:12 EST Asuncion Telles MD PACKAGES & DNA PROBE ORDERABLES Performing Organization Address [facility] [place]/[facility] Co de Phone Number [facility] [address] [place] [address] * HOLD SST (08/08/2020 19:07 EST) Hold Hold 08/08/2020 20:15 EST [facility] Blood VENOUS BLOOD / Unknown Venipuncture / Unknown 08/08/2020 19:07 EST 08/08/2020 19:12 EST Elise Charles MD LAB INFO SERVICE A ND SUPPORT & PHONE RESULT Performing Organization Address [place]/[facility] [place]/ZIP Co de Phone Number [facility] [address] [place] [address] * HOLD LAVENDER TOP (08/08/2020 19:07 EST) Hold Hold 08/08/2020 20:15 EST [facility] Blood VENOUS BLOOD / Unknown Venipuncture / Unknown 08/08/2020 19:07 EST 08/08/2020 19:12 EST Elise Charles MD LAB INFO SERVICE A ND SUPPORT & PHONE RESULT Performing Organization Address [place]/[facility] [place]/ZIP Co de Phone Number [facility] [address] [place] [address] * HOLD GREEN TOP (08/08/2020 19:07 EST) Hold Hold 08/08/2020 20:15 EST [facility] Blood VENOUS BLOOD / Unknown Venipuncture / Unknown 08/08/2020 19:07 EST 08/08/2020 19:12 EST Elise Charles MD LAB INFO SERVICE A ND SUPPORT & PHONE RESULT Performing Organization Address [facility] [place]/ZIP Co de Phone Number [facility] [address] [place] [address] * HOLD BLUE TOP (08/08/2020 19:07 EST) Hold Hold 08/08/2020 20:15 EST [facility] Blood VENOUS BLOOD / Unknown Venipuncture / Unknown 08/08/2020 19:07 EST 08/08/2020 19:12 EST Elise Charles MD LAB INFO SERVICE A ND SUPPORT & PHONE RESULT Performing Organization Address [facility] [place]/ZIP Co de Phone Number [facility] [address] [place] [address] * EKG 12-LEAD (08/08/2020 19:04 EST) 08/08/2020 19:0 4 EST Narrative [facility] EKG - 08/25/2020 13:16 EDT ?[facility] Emergency ? Test Date: ?2020-08-08 Pat Name: ? CRISTY LUO ?Department: ?? ED ? Room: ? AC14 Gender: ? Female ? Economic Adviser: ?? [id number] : ?1985 ? Requested By: SUSANNE Huizar Order Number: [id number] ? Reading MD: ?? CINDY GARCIA MD ? Measurements Intervals ?[place] ? Rate: ? 86 ? P: ?65 FL: ? 139 ?QRS: ?48 QRSD: ? 93 ? T: ?20 QT: ? 347 ? QTc: ?417 ? Interpretive Statements SINUS RHYTHM NONSPECIFIC T-WAVE ABNORMALITY Compared to ECG 08/04/2020 07:08:03 T-wave abnormality now present Sinus bradycardia no longer present Edited by ZE ROBERSON MD on 08-21-2020 10:16:15 EDT. I reviewed the tracing and have either agreed or edited the findings in this report. Electronically Signed On 08-25-2020 13:16:31 EDT by CINDY GARCIA MD. Procedure Note Cindy Garcia MD - 08/25/2020 [facility] Emergency Test Date: 2020-08-08 Pat Name: CRISTY LUO Department: ED Room: [facility] Gender: Female Economic Adviser: [id number] : 1985 Requested By: SUSANNE Huizar Order Number: [id number] Reading MD: CINDY GARCIA MD Measurements Intervals [place] Rate: 86 P: 65 FL: 139 QRS: 48 QRSD: 93 T: 20 QT: 347 QTc: 417 Interpretive Statements SINUS RHYTHM NONSPECIFIC T-WAVE ABNORMALITY Compared to ECG 08/04/2020 07:08:03 T-wave abnormality now present Sinus bradycardia no longer present Edited by ZE ROBERSON MD on 08-21-2020 10:16:15 EDT. I reviewed the tracing and have either agreed or edited the findings inthis report. Electronically Signed On 08-25-2020 13:16:31 EDT by CINDY ODELL. Alessandro Delgadillo MD CARDIAC ECG ORDERABL ES [facility] EKG * (ABNORMAL) POCT GLUCOSE, INTERFACED (08/08/2020 18:54 EST) Glucose, POC 213(H) 70 - 100 mg/dL 08/08/2020 18:55 EST [facility] LABORATORY medical advisor ID [id number] 08/08/2020 18:55 EST [facility] SERVICES HN LAB POC COMMENT (GLUCOSE) Test Performed by Nursing Services 08/08/2020 18:55 EST [facility] Blood CAPILLARY BLOOD / Unknown 08/08/2020 18:54 EST 08/08/2020 18:55 EST Provider Unknown MD POINT OF CARE TEST O RDERABLES [facility] [address] [place] [address] documented in this encounter Visit Diagnoses Diagnosis Generalized abdominal pain- Primary Abdominal pain, generalized Generalized abdominal pain Abdominal pain, generalized Emesis, persistent Persistent vomiting Type 2 diabetes mellitus with hyperosmolarity without coma, with long-term current use of insulin ([facility]) Dehydration Gastroparesis Abdominal pain Abdominal pain, unspecified site Emesis, persistent Persistent vomiting Dehydration Gastroparesis Generalized abdominal pain Abdominal pain, generalized Emesis, persistent Persistent vomiting Type 2 diabetes mellitus with hyperosmolarity without coma, with long-term current use of insulin ([facility]) documented in this encounter Administered Medications Inactive Administered Medications - up to 3 most recent administrations Medication Order MAR Action Action Date Dose Rate Site dextrose 5 % in lactated ringers infusion at 100 mL/hr, 1,000 mL, intravenous, CONTINUOUS, Starting on 08/09/20 at 0200, Until 08/09/20 at 1152, Routine New Bag 08/09/2020 1:53 EST 1,000 mL 100 mL/hr enoxaparin (LOVENOX) injection 40 mg 40 mg, subcutaneous, DAILY, First dose on 08/09/20 at 0900, Until Discontinued, Routine Given 08/10/2020 8:55 EST 40 mg Given 08/09/2020 9:20 EST 40 mg gabapentin (NEURONTIN) capsule 100 mg 100 mg, oral, 2 TIMES DAILY WITH BREAKFAST & LUNCH, First dose on 08/09/20 at 0800, Until Discontinued, Routine Given 08/10/2020 12:01 EST 100 mg Given 08/10/2020 7:37 EST 100 mg Given 08/09/2020 13:33 EST 100 mg gabapentin (NEURONTIN) capsule 300 mg 300 mg, oral, AT BEDTIME, First dose on 08/09/20 at 0200, Until Discontinued, Routine Given 08/09/2020 20:30 EST 30 0 mg Given 08/09/2020 1:53 EST 300 mg HYDROmorphone (PF) (DILAUDID) 0.5 mg/0.5 mL syringe 0.5 mg 0.5 mg, intravenous, NOW X1, 1 dose, On Tue08/08/20 at 1930, STAT Given 08/08/2020 19:22 EST 0.5 mg HYDROmorphone (PF) (DILAUDID) 0.5 mg/0.5 mL syringe 0.5 mg 0.5 mg, intravenous, NOW X1, 1 dose, On Tue08/08/20 at 2200, STAT Given 08/08/2020 21:55 EST 0.5 mg insulin aspart U-100 (NOVOLOG FLEXPEN) injection subcutaneous, EVERY 6 HOURS, First dose on Tue08/09/20 at 0230, Until Discontinued, Routine, Indications: SUPPLEMENTAL INSULIN Given 08/09/2020 4:23 EST 5 Units insulin aspart U-100 (NOVOLOG FLEXPEN) injection subcutaneous, 3 TIMES DAILY WITH MEALS, First dose on Tue08/09/20 at 0800, Until Discontinued, Routine Given 08/10/2020 12:01 EST 2 Units Given 08/10/2020 7:29 EST 3 Units Given 08/09/2020 17:17 EST 3 Units insulin glargine (LANTUS SOLOSTAR) injection pen 30 Units 30 Units, subcutaneous, ONCE DAILY L.A. INSULIN, First dose (after last modification) on Tue08/10/20 at 0900, Until Discontinued, Routine Given 08/10/2020 8:55 EST 30 Units lactated ringers BOLUS 1,000 mL 1,000 mL, intravenous, NOW X1, 1 dose, On Tue08/08/20 at 1930, STAT New Bag 08/08/2020 19:22 EST 1,000 mL LORazepam (ATIVAN) injection 1 mg 1 mg, intravenous, NOW X1, 1 dose, On Tue08/08/20 at 2200, STAT Given 08/08/2020 22:43 EST 1 mg LORazepam (ATIVAN) tablet 0.5 mg 0.5 mg, oral, 3 TIMES DAILY PRN, Starting on Tue08/09/20 at 0133, Until Tue08/10/20 at 1556, Anxiety, Routine Given 08/09/2020 20:30 EST 0.5 mg Given 08/09/2020 15:28 EST 0.5 mg metoclopramide (REGLAN) injection 10 mg 10 mg, intravenous, NOW X1, 1 dose, On Tue08/08/20 at 1930, STAT Given 08/08/2020 19:22 EST 10 mg ondansetron (PF) (ZOFRAN) 4 mg/2 mL injection 1 dose, Starting on Tue08/08/20 at 2157, Until Tue08/08/20 at 2200 ondansetron (PF) (ZOFRAN) injection 4 mg 4 mg, intravenous, NOW X1, 1 dose, On Tue08/08/20 at 2200, STAT Given 08/08/2020 22:00 EST 4 mg pantoprazole (PROTONIX) injection 40 mg 40 mg, intravenous, 2 TIMES DAILY, First dose on 08/09/20 at 0300, Until Discontinued, Routine Given 08/10/2020 8:55 EST 40 mg Given 08/09/2020 4:22 EST 40 mg documented in this encounter Active and Recently Administered Medications Times are shown in EST. Scheduled Medication Order 08/08/2020 08/09/2020 08/10/2020 enoxaparin (LOVENOX) injection 40 mg 40 mg, subcutaneous, DAILY, First dose on 08/09/20 at 0900, Until Discontinued, Routine 0920 (Given - Provider: Vinicius Blood RN) 0855 (Given - Provider: Fawn Sheth RN) gabapentin (NEURONTIN) capsule 100 mg 100 mg, oral, 2 TIMES DAILY WITH BREAKFAST & LUNCH, First dose on 08/09/20 at 0800, Until Discontinued, Routine 0920 (Given - Provider: Vinicius Blood RN)1333 (Given - Provider: Vinicius Blood RN) 0737 (Given - Provider: Fawn Sheth RN)1201 (Given - Provider: Fawn Sheth RN) gabapentin (NEURONTIN) capsule 300 mg 300 mg, oral, AT BEDTIME, First dose on 08/09/20 at 0200, Until Discontinued, Routine 0153 (Given - Provider: Jayne Perera RN)2030 (Given - Provider: Eryn Goss RN) HYDROmorphone (PF) (DILAUDID) 0.5 mg/0.5 mL syringe 0.5 mg (COMPLETED) 0.5 mg, intravenous, NOW X1, 1 dose, On Tue08/08/20 at 1930, STAT 1922 (Given - Provider: Kayleigh Bernal RN) HYDROmorphone (PF) (DILAUDID) 0.5 mg/0.5 mL syringe 0.5 mg (COMPLETED) 0.5 mg, intravenous, NOW X1, 1 dose, On Tue08/08/20 at 2200, STAT 2155 (Given - Provider: Kayleigh Bernal RN) insulin aspart U-100 (NOVOLOG FLEXPEN) injection (CANCELED) subcutaneous, EVERY 6 HOURS, First dose on Tue08/09/20 at 0230, Until Discontinued, Routine, Indications: SUPPLEMENTAL INSULIN 0423 (Given - Provider: Jayne Perera RN - Comment: [phone] (Not Given - Provider: Vinicius Blood RN - Reason: Discontinued) insulin aspart U-100 (NOVOLOG FLEXPEN) injection subcutaneous, 3 TIMES DAILY WITH MEALS, First dose on Tue08/09/20 at 0800, Until Discontinued, Routine 0941 (Given - Provider: Vinicius Blood RN)1240 (Given - Provider: Vinicius Blood RN - Comment: [phone] glucose)1717 (Given - Provider: Eryn Goss RN) 0729 (Given - Provider: Fawn Sheth, MARCELO)1201 (Given - Provider: Fawn Sheth RN) insulin glargine (LANTUS SOLOSTAR) injection pen 30 Units 30 Units, subcutaneous, ONCE DAILY L.A. INSULIN, First dose (after last modification) on Tue08/10/20 at 0900, Until Discontinued, Routine 0855 (Given - Provider: Fawn Sheth, MARCELO) lactated ringers BOLUS 1,000 mL (COMPLETED) 1,000 mL, intravenous, NOW X1, 1 dose, On Tue08/08/20 at 1930, STAT 1922 (New Bag - Provider: Kayleigh Bernal, MARCELO)2229 (Completed - Provider: Kayleigh Bernal RN) LORazepam (ATIVAN) injection 1 mg (COMPLETED) 1 mg, intravenous, NOW X1, 1 dose, On Tue08/08/20 at 2200, STAT 2243 (Given - Provider: Kayleigh Bernal, MARCELO) metoclopramide (REGLAN) injection 10 mg (COMPLETED) 10 mg, intravenous, NOW X1, 1 dose, On Tue08/08/20 at 1930, STAT 1922 (Given - Provider: Kayleigh Bernal, RN) ondansetron (PF) (ZOFRAN) injection 4 mg (COMPLETED) 4 mg, intravenous, NOW X1, 1 dose, On Tue08/08/20 at 2200, STAT 2200 (Given - Provider: Kayleigh Bernal, MARCELO) pantoprazole (PROTONIX) injection 40 mg 40 mg, intravenous, 2 TIMES DAILY, First dose on 08/09/20 at 0300, Until Discontinued, Routine 0422 (Given - Provider: Jayne Perera RN)0900 (Canceled Entry - Provider: Rivera Kerr [facility])2100 (Not Given - Provider: Eryn Goss RN - Reason: Medication not available) 0855 (Given - Provider: Fawn Sheth RN) Continuous Medication Order 08/08/2020 08/09/2020 08/10/2020 dextrose 5 % in lactated ringers infusion (CANCELED) at 100 mL/hr, 1,000 mL, intravenous, CONTINUOUS, Starting on 08/09/20 at 0200, Until 08/09/20 at 1152, Routine 0153 (New Bag - Provider: Jayne Perera RN)1141 (Completed - Provider: Vinicius Blood RN) PRN Medication Order 08/08/2020 08/09/2020 08/10/2020 dextrose 50 % solution 12.5 g 12.5 g (25 mL), intravenous, PRN, Starting on 08/09/20 at 0131, Until 08/10/20 at 1556, Low Blood Sugar, Routine glucagon injection 1 mg 1 mg, intramuscular, PRN, Starting on 08/09/20 at 0131, Until 08/10/20 at 1556, Other, Low blood sugar, Routine lidocaine (PF) 10 mg/mL (1 %) injection 2 mg 2 mg, intradermal, PRN, 4 doses, Starting on 08/09/20 at 0117, Until 08/10/20 at 1556, peripheral intravenous catheter placement, Routine LORazepam (ATIVAN) tablet 0.5 mg 0.5 mg, oral, 3 TIMES DAILY PRN, Starting on 08/09/20 at 0133, Until 08/10/20 at 1556, Anxiety, Routine 1528 (Given - Provider: Eryn Goss, RN)2030 (Given - Provider: Eryn Goss, MARCELO) metoclopramide HCl (REGLAN) tablet 10 mg 10 mg, oral, 4 TIMES DAILY PRN, Starting on 08/09/20 at 0133, Until 08/10/20 at 1556, Nausea, Routine ondansetron (ZOFRAN-ODT) disintegrating tablet 4 mg 4 mg, oral, EVERY 8 HOURS PRN, Starting on 08/09/20 at 0133, Until 08/10/20 at 1556, Nausea, Routine documented in this encounter Orders Medications Ordered That Stan ht Not Have Been Administered Count Last Ordered Date First Ordered Date dextrose 50 % solution 12.5 g 1 08/09/2020 glucagon injection 1 mg 1 08/09/2020 insulin glargine (LANTUS RICARDO OSTAR) injection pen 30 Units 1 08/09/2020 lidocaine (PF) 10 mg/mL (1 % ) injection 2 mg 1 08/09/2020 metoclopramide HCl (REGLAN) tablet 10 mg 1 08/09/2020 ondansetron (ZOFRAN-ODT) dis integrating tablet 4 mg 1 08/09/2020 Diet Count Last Ordered Date First Orde red Date DISCHARGE DIET 2 08/10/2020 Nursing Count Last Ordered Date First Orde red Date ACTIVITY INSTRUCTIONS 1 08/10/2020 IV Count Last Ordered Date First Orde red Date IV REQUEST 1 08/09/2020 Admission Count Last Ordered Date First Orde red Date ADMIT TO INPATIENT 1 08/09/2020 INITIATE OBSERVATION STATUS 1 08/09/2020 Transfer Count Last Ordered Date First Orde red Date ED BED REQUEST 1 08/08/2020 Discharge Count Last Ordered Date First Orde red Date DISCHARGE PATIENT 1 08/10/2020 documented in this encounter
--- OUTSIDE RECORDS SUMMARY | 2023-12-16 00:38 | XMS_ITS | Encounter Summary ---
Author Organization [facility] Address [address] [place] [address] Care Team Providers Care Lens Block Gauger Name Role Phone Unavailable Primary Care Provider Unavailabl e Reason for Visit * Reason Onset Date Comments New/Evolving Symptoms 08/07/2020 Encounter Details Date Type Department Care Team (Late st Contact Info) Description 08/07/2020 Telephone [facility] Adult Primary Care [address] [id number] Tonja Alejandro PA-C [address] [place] [address] [place] [phone] New/Evolving Symptoms Social History Tobacco Use Types Packs/Day Years [...] No 05/04/2020 documented as of this encounter Ordered Prescriptions Prescription Sig Dispensed Refills Start Date End Da te ondansetron (ZOFRAN-ODT) 4 mg disintegrating tablet Take 1 Tab by mouth every 8 hours as needed for up to 30 days for Nausea. 90 Tab 08/07/2020 09/06/2020 LORazepam (ATIVAN) 0.5 mg tablet Take 1 Tab by mouth 3 times daily as needed for Anxiety. Daily Max: 1.5 mg 30 Tab 08/07/2020 08/14/2020 documented in this encounter Miscellaneous Notes * Telephone Encounter - Angelica Blanco, - 08/07/2020 1916 EST medical center representative message: Patient's Fermin called several hours after below message from Tonja Alejandro PA-C. Stella has taken one dose each of the Zofran ODT and the lorazepam. She drank 4 to 8 oz of a protein drink but then vomited 15-20 min later. The lorazepam did help decrease some of her anxiety. They are calling because Stella cannot get comfortable, and she can't keep po down. I advised they could either wait to try a second dose of the above meds in a few hours, or they could, if they felt she could not safely remain at home, go back to the ED. They understand the plan and were going to consider options. * Telephone Encounter - Tonja Alejandro PA-C - 08/07/2020 1510 EST I called patient and spoke with her on the phone. Patient has gone to the ER a couple times over the last week. She states that her symptoms started around a month ago and have progressively gotten worse. She has chronic nausea and vomiting on a daily basis. She states that the last time she ate was Tuesday. Today she tried drinking chicken broth and kirsten stan and unfortunately vomited this back up. She does have occasional diarrhea but describes it as bright green. She also has occasional blood in her vomit. She denies any trouble swallowing. I spoke with GI attending communications project lead. Recommendations included going to the ER if she continues to have blood in her vomit due to questionable Ericka Longo tear due to ongoing vomiting. She may need anEGD. She also should have a gastric emptying study for gastroparesis as this is most likely the diagnosis the patient has. Patient has been taking Reglan at least a couple times a day. She has not tried Zofran. Zofran was recommended by GI. I will send in a prescription for Zofran 4 mg rapid dissolve up to 3 times daily. Patient was very tearful and crying on the phone with me today. She states that her anxiety has gone to an all-time high. Sometimes when she is in a vomiting episode she feels like she cannot breathe and then has a panic attack. I will also prescribe her lorazepam 0.5 mg up to 3 times daily as needed for her anxiety. I will check in with her next week and if she is doing well I will order a gastric emptying study. I also informed her that she needs to follow-up with endocrinology. I spoke with Mary Zafar NP in endocrinology and she recommended to follow-up. documented in this encounter Plan of Treatment Upcoming Encounters Date Type Department Care Team (Late st Contact Info) Description 02/21/2024 9:45 EDT Office Visit [facility] Adult Primary Care - [address] [address] Carrington Calderon MD [address] [place] [phone] 02/27/2024 8:30 EDT Telemedicine [facility] Sleep Program - [address] [id number] Rn, Sleep 02/29/2024 10:30 EDT Appointment [facility] Radiology Nuclear Medicine and PET - [address] [id number] 02/29/2024 14:30 EDT Appointment [facility] Radiology Nuclear Medicine and PET - [address] [phone] 03/01/2024 8:00 EDT Appointment [facility] Radiology Nuclear Medicine and PET - [address] [id number] 03/01/2024 9:30 EDT Appointment [facility] Radiology Nuclear Medicine and PET - [address] [id number] documented as of this encounter Visit Diagnoses Not on filedocumented in this encounter
--- OUTSIDE RECORDS SUMMARY | 2023-12-16 00:38 | XMS_ITS | Encounter Summary ---
Author Organization [facility] Address [address] [place] [address] Care Team Providers Care Shape Hand Name Role Phone Unavailable Primary Care Provider Unavailabl e Reason for Visit * Reason Onset Date Comments Advice Only 08/07/2020 Encounter Details Date Type Department Care Team (Late st Contact Info) Description 08/07/2020 Telephone [facility] Endocrinology - [facility] [address] [place] [address] Sara Zafar NP [address] [facility] [address] [place] [address] Advice Only Social History Tobacco Use Types Packs/Day [...] No 05/04/2020 documented as of this encounter Miscellaneous Notes * Telephone Encounter - Cristy Murcia - 08/08/2020 1114 EST Patient scheduled for 08/27 in office. * Telephone Encounter - Valencia Correia - 08/07/2020 1330 EST Patient's PCP calling to speak to the provider regarding patients insulin. Asked advertising copy writer to zandra [employer]. PCP paged Sara Zafar thru [facility] with no response documented in this encounter Plan of Treatment Upcoming Encounters Date Type Department Care Team (Late st Contact Info) Description 02/21/2024 9:45 EDT Office Visit [facility] Adult Primary Care - [address] [address] Carrington Calderon MD [address] [phone] 02/27/2024 8:30 EDT Telemedicine [facility] Sleep Program - [address] [address] Rn, Sleep 02/29/2024 10:30 EDT Appointment [facility] Radiology Nuclear Medicine and PET - [address] [phone] 02/29/2024 14:30 EDT Appointment [facility] Radiology Nuclear Medicine and PET [address] [id number] 03/01/2024 8:00 EDT Appointment [facility] Radiology Nuclear Medicine and PET - [address] [phone] 03/01/2024 9:30 EDT Appointment [facility] Radiology Nuclear Medicine and PET [address] [id number] documented as of this encounter Visit Diagnoses Not on filedocumented in this encounter
--- OUTSIDE RECORDS SUMMARY | 2023-12-16 00:38 | XMS_ITS | Encounter Summary ---
Author Organization [facility] Address [address] [place] [address] Care Team Providers Care Absence Management Consultant Name Role Phone Unavailable Primary Care Provider Unavailabl e Reason for Visit * Reason Onset Date Comments Hospital Discharge Follow Up 08/11/2020 Encounter Details Date Type Department Care Team (Late st Contact Info) Description 08/11/2020 Telephone [facility] Adult Primary Care [address] [phone] Tonja Alejandro PA-C [address] [place] [address] [place] [phone] Hospital Discharge Follow Up Social History Tobacco [...] days for Nausea. 90 Tab 08/11/2020 09/03/2020 metoclopramide HCl (REGLAN) 10 mg tablet Take 1 Tab by mouth 4 times daily as needed for up to 23 days for Nausea. 90 Tab 08/11/2020 08/11/2020 blood glucose test strips One Touch Verio IQ or other brand compatible with meter and covered by patient's insurance. Testing QID. 100 Each 5 08/11/2020 06/27/2023 documented in this encounter Miscellaneous Notes * Telephone Encounter - Tonja Alejandro PA-C - 08/11/2020 1034 EST Medications sent in. * Telephone Encounter - Jesi Love RN - 08/11/2020 1006 EST Hospital Discharge Follow Up: admitted 08/08-08/10/20 Risk Assessment: high 44 Reason for admission: gastroparesis Symptoms improving? Yes, pt states she is doing well, eating and drinking Discharge instructions available? yes Medications Reviewed/prescriptions filled? yes Support at home? yes Home health service/issues? no - Questions about discharge instructions? Yes- needs refill of metoclopramide and test strips-pended for provider Follow-up visit scheduled? Yes, 08/14/20- 899, Tonja DAWSON Education/Plan: advised to call if she needs anything before appt JESI LOVE RN 08/11/2020 documented in this encounter Plan of Treatment Upcoming Encounters Date Type Department Care Team (Late st Contact Info) Description 02/21/2024 9:45 EDT Office Visit [facility] Adult Primary Care - [address] [phone] Carrington Calderon MD [address] [facility] [place] [place] [address] [place] [address] 02/27/2024 8:30 EDT Telemedicine [facility] Sleep Program - [address] [phone] Rn, Sleep 02/29/2024 10:30 EDT Appointment [facility] Radiology Nuclear Medicine and PET - [address] [phone] 02/29/2024 14:30 EDT Appointment [facility] Radiology Nuclear Medicine and PET - [address] [phone] 03/01/2024 8:00 EDT Appointment [facility] Radiology Nuclear Medicine and PET - [address] [address] 03/01/2024 9:30 EDT Appointment [facility] Nuclear Medicine and PET [address] [address] documented as of this encounter Visit Diagnoses Not on filedocumented in this encounter Discontinued Medications Medication Sig Discontinue Reason Start Date End Da te blood glucose test strips One Touch Verio IQ or other brand compatible with meter and covered by patient's insurance. Testing QID. Reorder 10/01/2019 08/11/2020 metoclopramide HCl (REGLAN) 10 mg tablet Take 1 Tab by mouth 4 times daily as needed for Nausea. Reorder 08/06/2020 08/11/2020 metoclopramide HCl (REGLAN) 10 mg tablet Take 1 Tab by mouth 4 times daily as needed for up to 23 days for Nausea. Reorder 08/11/2020 08/11/2020 documented as of this encounter
--- OUTSIDE RECORDS SUMMARY | 2023-12-16 00:38 | XMS_ITS | Encounter Summary ---
Author Organization [facility] Address [address] [place] [address] Care Team Providers Care Maintenance Equipment Operator Name Role Phone Unavailable Primary Care Provider Unavailabl e Reason for Visit * Reason Onset Date Comments Procedure 08/18/2020 Encounter Details Date Type Department Care Team (Late st Contact Info) Description 08/18/2020 Orders Only [facility] Women's Services - [facility] [address] [place], [place] [address] Nimisha Bay MD 2 [facility] Medical Office Building, [address] [place] [address] Encounter for preprocedure screening laboratory testing for COVID-19 (Primary Dx) Social History Tobacco Use Types [...] Info) Description 02/21/2024 9:45 EDT Office Visit [facility] Adult Primary Care - [address] [phone] Carrington Calderon MD 1 [facility] [address] [place] [phone] 02/27/2024 8:30 EDT Telemedicine [facility] Sleep Program - [address] [id number] Rn, Sleep 02/29/2024 10:30 EDT Appointment [facility] Radiology Nuclear Medicine and PET [address] [address] 02/29/2024 14:30 EDT Appointment [facility] Radiology Nuclear Medicine and PET [address] [address] 03/01/2024 8:00 EDT Appointment [facility] Radiology Nuclear Medicine and PET [address] [address] 03/01/2024 9:30 EDT Appointment [facility] and [address] [address] documented as of this encounter Results * COVID-19 TESTING (08/18/2020 16:23 EDT) [facility] Signature COVID-19 rt-PCR Result Negative Negative 08/19/2020 15:57 EDT [facility] Comment: This test has not [...] developed and its performance characteristics determined by [facility]. It has not been cleared or [...] testing. This test is based on the [facility] COVID-19 Emergency Use Authorization (EUA) assay, with minor modification as defined by the FDA Performed on the MySQL 7 Flex RT-PCR System. Performing Lab [facility] Lab 08/19/2020 15:57 EDT [facility] Swab ENTIRE NASOPHARYNX / Unknown Swab / Unknown 08/18/2020 16:23 EDT 08/18/2020 16:23 EDT Nimisha Bay MD MICROBIOLOGY - [facility] ORDERABLES [facility] [address] [place] [address] documented in this encounter Visit Diagnoses Diagnosis Encounter for preprocedure screening laboratory testing for COVID-19- Primary documented in this encounter
--- OUTSIDE RECORDS SUMMARY | 2023-12-16 00:38 | XMS_ITS | Encounter Summary ---
Author Organization [facility] Address [address] [place] [address] Care Team Providers Care Buckle Sewer Machine Name Role Phone Unavailable Primary Care Provider Unavailabl e Encounter Details Date Type Department Care Team (Latest Contact Info) Description 08/04/2020 Travel Social History Tobacco Use Types Packs/Day [...] have Coronavirus / COVID-19? No / Unsure 08/04/2020 7:19 EST documented as of this encounter Functional [...] [facility] Adult Primary Care - [address] [phone] Carrington Calderon MD [address] [place] [phone] 02/27/2024 8:30 EDT Telemedicine [facility] Sleep Program - [address] [address] Rn, Sleep 02/29/2024 10:30 EDT Appointment [facility] Radiology Nuclear Medicine and PET - [address] [phone] 02/29/2024 14:30 EDT Appointment [facility] Radiology Nuclear Medicine and PET - [address] [phone] 03/01/2024 8:00 EDT Appointment [facility] Radiology Nuclear Medicine and PET - [address] [address]681 03/01/2024 9:30 EDT Appointment [facility] Radiology Nuclear Medicine and PET - [address] [address] documented as of this encounter Visit Diagnoses Not on filedocumented in this encounter Additional Health Concerns Infection Onset Date Last Indicated Resolved Time R/O COVID-19 08/04/2020 08/04/2020 08/04/2020 11:4 0 EST documented as of this encounter
--- OUTSIDE RECORDS SUMMARY | 2023-12-16 00:38 | XMS_ITS | Encounter Summary ---
Author Organization [facility] Address [address] [place] [address] Care Team Providers Care Forestry Workers Name Role Phone Unavailable Primary Care Provider Unavailabl e Reason for Visit * Reason Comments Emesis Seen tuesday for n/v/ d back tonight for continued n/v/d, her pcp recommended she come in for reeval and possible scan. Pt reports diffuse abdominal pain. Encounter Details Date Type Department Care Team (Late st Contact Info) Description 08/06/2020 3:57 EST - 08/06/2020 8:59 EST Emergency [facility] Emergency Department - [facility] [address] [place] [address] Kylah Whitaker PA-C [address] [facility], [address] [place] [phone] Jeremiah Hein PA-C [address] [place] [phone] Non-intractable vomiting with nausea, unspecified vomiting type [...] 3:57 EST documented as of this encounter Last Filed Vital Signs Vital Sign Reading Time Taken Comments Blood Pressure 120/69 08/06/2020 0813 EST Pulse 94 08/06/2020 0813 EST Temperature 36.5 ??C (97.7 ??F) 08/06/2020 0356 EST Respiratory Rate 14 08/06/2020 0813 EST Oxygen Saturation 98% 08/06/2020 0813 EST Inhaled Oxygen Concentration - - Weight 90.7 kg (200 lb) 08/06/2020 0356 EST Height - - Body Mass Index 34.33 08/04/2020 0650 EST documented in this encounter Functional Status [...] No 05/04/2020 documented as of this encounter Discharge Instructions * Discharge Instructions* Jeremiah Hein PA-C - 08/06/2020 8:56 EST Your CAT scan was reassuring as well as the rest of your work-up. You are tolerating clear liquids. I did refill your Reglan prescription. Please follow-up with primary care. Please return for any worsening symptoms * Attachments The following attachments cannot be sent through Care Everywhere. * Nausea and Vomiting (Icelandic) documented in this encounter Medications at Time [...] patient's insurance. 100 Each 5 10/01/2019 10/01/2020 metoclopramide HCl (REGLAN) 10 mg tablet Take [...] needed for Nausea. 15 Tab 08/06/2020 08/11/2020 documented in this encounter Discharge Disposition Disposition Code Departure Means Destination Comment s Home or Self Alf driving. documented in this encounter ED Notes * Jeremiah Hein PA-C - 08/06/2020 0853 EST Assumed care from Kylah Whitaker CT ABDOMEN PELVIS W CONTRAST Final Result 1. No acute abnormality identified in the abdomen or pelvis. 2. Small nonobstructing left intrarenal calculus. 3. Small hiatal hernia. I have personally reviewed the images and the above interpretation and agree with the findings. Labs Reviewed COMPLETE BLOOD COUNT AND DIFFERENTIAL - Abnormal Result Value Status WBC 13.81 (*) Final RBC 4.57 Final Hemoglobin 14.0 Final HCT 39.4 Final MCV 86 Final MCH 30.6 Final MCHC 35.5 Final RDW-CV 12.1 Final RDW-SD 38.3 Final PLT 427 (*) Final MPV 9.9 Final Neutrophils 51.5 Final Lymphocytes 36.1 Final Monocytes 9.1 Final Eosinophils 2.2 Final Basophils 0.7 Final Immature Grans 0.4 Final Absolute Neutrophils 7.11 Final Absolute Lymphocytes 4.98 (*) Final Absolute Monocytes 1.26 (*) Final Absolute Eosinophils 0.31 Final Absolute Basophils 0.10 Final Absolute Immature Grans 0.05 Final Type of Differential: Auto Final COMPREHENSIVE METABOLIC PANEL (CMP) - Abnormal Sodium 139 Final Potassium 3.4 (*) Final Chloride 99 Final CO2 Total 25 Final Glucose 255 (*) Final BUN 12 Final Creatinine 0.52 Final eGFR 124 Final Total Protein 7.0 Final Albumin 4.2 Final Alkaline Phosphatase 92 Final AST 29 Final ALT 23 Final Bilirubin, Total 0.6 Final Calcium 9.4 Final Calculated Calcium 9.2 Final LIPASE - Normal Lipase 141 Final LACTIC ACID - Normal Lactic Acid 1.5 Final HOLD BLUE TOP Hold Hold Final HOLD GREEN TOP Hold Hold Final HOLD LAVENDER TOP Hold Hold Final HOLD SST Hold Hold Final POCT URINE CLINITEK (DIPSTICK) - DOES NOT REFLEX Narrative: The following orders were created for panel order POCT URINE CLINITEK (DIPSTICK) - DOES NOT REFLEX. Procedure Abnormality Status --------- ------ POCT URINE DIPSTICK, CLI...[[id number]] POCT CSN BARCODE URINE D...[[id number]] Please view results for these tests on the individual orders. POCT TEST, CLINITEK ORDER Narrative: The following orders were created for panel order POCT TEST, CLINITEK ORDER. Procedure Abnormality Status --------- ------ POCT TEST, CLI...[[id number]] POCT CSN BARCODE URINE P...[[id number]] Please view results for these tests on the individual orders. POCT CSN BARCODE URINE DIPSTICK POCT CSN BARCODE URINE PREG TEST POCT URINE DIPSTICK, CLINITEK POCT TEST, CLINITEK Patient reports she has been taking sips and is actually feeling quite a bit better. She states that she needs a refill of her Reglan that she was prescribed by primary care for home. She would like discharge. We did discuss the work-up and CT results. * Angelica Stone RN - 08/06/2020 1414 EST I assumed care of pt at this time, the pt is sleeping. Visitor at the bedside. * Mignon Young RN - 08/06/2020 0658 EST Report given MARCELO Dominguez * Kylah Whitaker PA-C - 08/06/2020 0443 EST This patient received an evaluation and medical screening exam for emergent medical conditions at the [facility] on 08/06/2020 Scribe attestation: This documentation is recorded by Devorah Green acting as Scribe under the direction and presence of Kylah Whitaker PA-C. Kylah Whitaker PA-C: I personally performed the services recorded by the scribe in my presence. I confirm the scribe's documentation has been reviewed by me to accurately and completely record my work, treatment, procedures, and medical decision making. Chief Complaint Emesis HPI Cristy Luo is a 35 y.o. female with PMH including insulin dependent type 2 diabetes mellitus, migraine, osteomyelitis w/left toe amputation, and recent miscarriage (06/2020) who presents to theED for emesis. Patient's boyfriend reports that the patient's symptoms began on Tuesday morning when she came in via ambulance for vomiting. She states that she was recently diagnosed with gastroparesis. She denies any abdominal medical history however her boyfriend notes that she has had 7 miscarriages and a multitude of D&Cs. She denies any fevers but endorses some anxiety, chest pain and shortness of breat h. She endorses emesis and diarrhea but denies any blood in her stool or melena. Per chart review, patient was evaluated at this ED on 08/04/2020 where she had a negative HCG. ED bedside ultrasound was collected at that time and demonstrated no free fluid, no evidence of cholecystitis but unable to visualize appendicitis. AST of 62, Blood sugar at 325. SHx: Patient states that she smokes cigarettes and marijuana. History was provided by: Patient and medical records. Patient's pertinent PMH, FH, SH were reviewed and updated PRN. ROS Review of Systems Review of Systems Constitutional: Negative for fever. Respiratory: Positive for shortness of breath. Cardiovascular: Positive for chest pain. Gastrointestinal: Positive for abdominal pain, diarrhea and vomiting. Negative for blood in stool. Musculoskeletal: Positive for back pain. Psychiatric/Behavioral: The patient is nervous/anxious. All other systems reviewed and are negative. Physical Exam Vital Signs Temp: 36.5 ??C (97.7 ??F) Pulse: 94 Heart Rate: 92 BPM Resp: 14 SpO2: 98 % BP: 120/69 BP MAP: 87 mm Hg O2 Device: None (Room air) Physical Exam Vitals signs and nursing note reviewed. Constitutional: Appearance: She is well-developed. Comments: appears anxious, look uncomfortable and pale. HENT: Head: Normocephalic and atraumatic. Neck: Musculoskeletal: Normal range of motion and neck supple. Cardiovascular: Rate and Rhythm: Normal rate and regular rhythm. Heart sounds: No murmur. Pulmonary: Effort: Pulmonary effort is normal. No respiratory distress. Breath sounds: Normal breath sounds. No wheezing. Abdominal: General: There is no distension. Palpations: Abdomen is soft. Tenderness: There is abdominal tenderness (diffuse). Comments: Hypoactive bowel sounds. Musculoskeletal: Normal range of motion. Skin: General: Skin is warm and dry. Capillary Refill: Capillary refill takes less than 2 seconds. Neurological: Mental Status: She is alert and oriented to person, place, and time. Psychiatric: Behavior: Behavior normal. Laboratory Results Labs Reviewed COMPLETE BLOOD COUNT AND DIFFERENTIAL - Abnormal Result Value Status WBC 13.81 (*) Final RBC 4.57 Final Hemoglobin 14.0 Final HCT 39.4 Final MCV 86 Final MCH 30.6 Final MCHC 35.5 Final RDW-CV 12.1 Final RDW-SD 38.3 Final PLT 427 (*) Final MPV 9.9 Final Neutrophils 51.5 Final Lymphocytes 36.1 Final Monocytes 9.1 Final Eosinophils 2.2 Final Basophils 0.7 Final Immature Grans 0.4 Final Absolute Neutrophils 7.11 Final Absolute Lymphocytes 4.98 (*) Final Absolute Monocytes 1.26 (*) Final Absolute Eosinophils 0.31 Final Absolute Basophils 0.10 Final Absolute Immature Grans 0.05 Final Type of Differential: Auto Final COMPREHENSIVE METABOLIC PANEL (CMP) - Abnormal Sodium 139 Final Potassium 3.4 (*) Final Chloride 99 Final CO2 Total 25 Final Glucose 255 (*) Final BUN 12 Final Creatinine 0.52 Final eGFR 124 Final Total Protein 7.0 Final Albumin 4.2 Final Alkaline Phosphatase 92 Final AST 29 Final ALT 23 Final Bilirubin, Total 0.6 Final Calcium 9.4 Final Calculated Calcium 9.2 Final LIPASE - Normal Lipase 141 Final LACTIC ACID - Normal Lactic Acid 1.5 Final HOLD BLUE TOP Hold Hold Final HOLD GREEN TOP Hold Hold Final HOLD LAVENDER TOP Hold Hold Final HOLD SST Hold Hold Final Data Interpretation Imaging obtained was reviewed and independently interpreted: CT abdomen pelvis w contrast pending at change of shift. Laboratory results independently reviewed, significant for: LFTs and lipase are normal. Glucose at 255. WBC of 13.8. Procedures Procedures None ED Course/Medical Decision Making A medical screening was performed. The patient is a 35 y.o. female with PMH including type 2 diabetes mellitus, migraine, osteomyelitis w/left toe amputation, and recent miscarriage (06/2020) who presents to the ED for emesis. Physical exam was significant for appears anxious, look uncomfortable and pale. Hypoactive bowel sounds. Diffuse abdominal pain. Soft abdomen. Differential diagnosis includes but is not limited to DKA, newly diagnosed gastroparesis, enteritis, colitis, appendicitis, diverticulitis. 0417 Patient administered 4 mg injection Zofran. 0506 Patient administered injection Ativan 0.5 mg, 25 mg injection Benadryl, 10 mg injection Reglanand 1L IV LR. 0628 Patient administered 5 mg injection haldol. The patient was signed out to AM MARY with PO challenge and CT pending. Please refer to progress notes. Clinical Impression Final diagnoses: Non-intractable vomiting with nausea, unspecified vomiting type Disposition Signed out The patient's pain was managed to an adequate level weighing risk vs. benefit of further medications. Any further pain treatment will be at the discretion of the provider following up with the patient based on their clinical assessment. While under my care in the Emergency Department, the patient's pain was managed to an adequate level weighing risk vs. benefit of medication. Dr. Garcia was available for supervision. * Nanda Gibson RN - 08/06/2020 0442 EST Pt w ongoing n/v upon arrival. Pt incontinent of diarrhea. documented in this encounter Plan of Treatment Upcoming Encounters Date Type Department Care Team (Late st Contact Info) Description 02/21/2024 9:45 EDT Office Visit [facility] - [address] [id number] Carrington Calderon MD [address] [place] [phone] 02/27/2024 8:30 EDT Telemedicine [facility] Sleep [facility] - [address] [id number] Rn, Sleep 02/29/2024 10:30 EDT Appointment [facility] Radiology Nuclear Medicine and PET [address] [id number] 02/29/2024 14:30 EDT Appointment [facility] Radiology Nuclear Medicine and PET [address] [id number] 03/01/2024 8:00 EDT Appointment [facility] Radiology Nuclear Medicine and PET [address] [id number] 03/01/2024 9:30 EDT Appointment [facility] Radiology Nuclear Medicine and PET [address] [id number] documented as of this encounter Procedures Procedure Name Priority Date/Time Associated Diagnosis Comments CT ABDOMEN PELVIS W CONTRAST STAT 08/06/2020 6:53 EST LACTIC ACID STAT 08/06/2020 5:06 EST HOLD SST STAT 08/06/2020 4:13 EST HOLD LAVENDER TOP STAT 08/06/2020 4:1 3 EST HOLD GREEN TOP STAT 08/06/2020 4:13 EST HOLD BLUE TOP STAT 08/06/2020 4:13 EST COMPLETE BLOOD COUNT AND DIFFERENTIAL STAT Add-on 08/06/2020 4:13 EST LIPASE STAT Add-on 08/06/2020 4:13 EST COMPREHENSIVE METABOLIC PANEL (CMP) STAT Add-on 08/06/2020 4:13 EST documented in this encounter Results * CT ABDOMEN PELVIS W CONTRAST (08/06/2020 6:53 EST) Anatomical Region Laterality Modality Body, Abdomen, Pelvis, Abdomen and Pelvis Computed Tomography 08/06/2020 8:44 EST Impressions 08/06/2020 8:44 EST 1. No acute abnormality identified in the abdomen or pelvis. 2. Small nonobstructing left intrarenal calculus. 3. Small hiatal hernia. I have personally reviewed the images and the above interpretation and agree with the findings. Narrative 08/06/2020 8:[address] ABDOMEN PELVIS W CONTRAST ??08/06/2020 6:35 AM Signs and Symptoms/Comments: ?? Abdominal pain, acute, nonlocalized Technique: CT of the abdomen and pelvis was performed following the administration intravenous contrast; coronal and sagittal multiplanar reconstructions generated. Comparison: None available. Findings: Lower chest: No significant abnormality. Clear lungs Hepatobiliary: No significant abnormality. Normal gallbladder Spleen, pancreas, adrenal glands: Unremarkable. No peripancreatic fat stranding. Kidneys, ureters, bladder: The kidneys enhance symmetrically. No suspicious renal lesions. A small nonobstructing intrarenal calculus on the left. No hydronephrosis. The ureters and urinary bladder are unremarkable. Uterus, ovaries: Unremarkable. No adnexal mass. Bowel: No evidence of obstruction or acute inflammation. Normal appendix. Small hiatal hernia. No diverticular disease. Peritoneal cavity / Subperitoneal space: No free fluid. No free air. Lymphovascular: No lymphadenopathy. Normal caliber abdominal aorta. Abdominal wall: No bowel containing hernia. Musculoskeletal: No acute fracture or suspicious osseous lesion. Oscillograph Technician: No additional pathology identified. Procedure Note [place], Broderick Moises, MD - 08/06/2020 CT ABDOMEN PELVIS W CONTRAST 08/06/2020 6:35 AM Signs and Symptoms/Comments: Abdominal pain, acute, nonlocalized Technique: CT of the abdomen and pelvis was performed following the administrationintravenous contrast; coronal and sagittal multiplanar reconstructionsgenerated. Comparison: None available. Findings: Lower chest: No significant abnormality. Clear lungs Hepatobiliary: No significant abnormality. Normal gallbladder Spleen, pancreas, adrenal glands: Unremarkable. No peripancreatic fatstranding. Kidneys, ureters, bladder: The kidneys enhance symmetrically. Nosuspicious renal lesions. A small nonobstructing intrarenal calculus onthe left. No hydronephrosis. The ureters and urinary bladder areunremarkable. Uterus, ovaries: Unremarkable. No adnexal mass. Bowel: No evidence of obstruction or acute inflammation. Normal appendix.Small hiatal hernia. No diverticular disease. Peritoneal cavity / Subperitoneal space: No free fluid. No free air. Lymphovascular: No lymphadenopathy. Normal caliber abdominal aorta. Abdominal wall: No bowel containing hernia. Musculoskeletal: No acute fracture or suspicious osseous lesion. Oscillograph Technician: No additional pathology identified. IMPRESSION 1. No acute abnormality identified in the abdomen or pelvis. 2. Small nonobstructing left intrarenal calculus. 3. Small hiatal hernia. I have personally reviewed the images and the above interpretation andagree with the findings. Kylah Whitaker PA-C IMG CT ORDERABLES * LACTIC ACID (08/06/2020 5:06 EST) Lactic Acid 1.5 <=2.0 mmol/L 08/06/2020 5:29 EST [facility] Blood VENOUS BLOOD / Unknown Venipuncture / Unknown 08/06/2020 5:06 EST 08/06/2020 5:17 EST Kylah Whitaker PA-C CHEMISTRY & BLOOD GA S ORDERABLES [facility] [address] [place] [address] * LIPASE (08/06/2020 4:13 EST) Lipase 141 <251 U/L 08/06/2020 5:00 [facility] Blood VENOUS BLOOD / Unknown Venipuncture / Unknown 08/06/2020 4:13 EST 08/06/2020 4:19 EST Kylah Whitaker PA-C CHEMISTRY & BLOOD GA S ORDERABLES [facility] [address] [place] [address] * (ABNORMAL) COMPREHENSIVE METABOLIC PANEL (CMP) (08/06/2020 4:13 EST) Sodium 139 136 - 145 mEq/L 08/06/2020 5:00 [facility] Potassium 3.4(L) 3.5 - 5.0 mEq/L 08/06/2020 5:00 [facility] Comment: NOTE: Interpret with caution. Prolonged sample storage may alter the result. Chloride 99 96 - 110 mEq/L 08/06/2020 5:00 [facility] CO2 Total 25 22 - 32 mEq/L 08/06/2020 5:00 [facility] Comment: NOTE: Interpret with caution. Prolonged sample storage may alter the result. Glucose 255(H) 70 - 100 mg/dL 08/06/2020 5:00 [facility] BUN 12 10 - 26 mg/dL 08/06/2020 5:00 [facility] Creatinine 0.52 0.52 - 1.04 mg/dL 08/06/2020 5:00 [facility] eGFR 124 >60 mL/min/1.7 3m2 08/06/2020 5:00 [facility] Comment:eGFR calculated gil curtis CKD-EPI equation for non- Americans. Multiply eGFR by 1.16 for patients. Total Protein 7.0 6.3 - 8.2 g/dL 08/06/2020 5:00 [facility] Albumin 4.2 3.4 - 4.9 g/dL 08/06/2020 5:00 [facility] Alkaline Phosphatase 92 38 - 126 U/L 08/06/2020 5:00 [facility] AST 29 15 - 46 U/L 08/06/2020 5:00 [facility] ALT 23 <35 U/L 08/06/2020 5:00 [facility] Bilirubin, Total 0.6 <1.4 mg/dL 08/07/19 5:00 [facility] Calcium 9.4 8.5 - 10.5 mg/dL 08/06/2020 5:00 [facility] Calculated Calcium 9.2 8.5 - 10.5 mg/dL 08/06/2020 5:00 [facility] Blood VENOUS BLOOD / Unknown Venipuncture / Unknown 08/06/2020 4:13 EST 08/06/2020 4:19 EST Kylah Whitaker PA-C CHEMISTRY & BLOOD GA S ORDERABLES Performing Organization Address [facility]/State/[facility] Co de Phone Number [facility] [address] [place] [address] * (ABNORMAL) COMPLETE BLOOD COUNT AND DIFFERENTIAL (08/06/2020 4:13 EST) WBC 13.81(H) 4.00 - 12.40 K/cmm 08/06/2020 5:13 [facility] RBC 4.57 3.86 - 5.04 M/cmm 08/06/2020 5:13 [facility] Hemoglobin 14.0 11.6 - 15.2 gm/dL 08/06/2020 5:13 [facility] HCT 39.4 34.9 - 44.4 % 08/06/2020 5:13 [facility] MCV 86 81 - 98 fl 08/06/2020 5:13 [facility] MCH 30.6 26.7 - 33.3 pg 08/06/2020 5:13 [facility] MCHC 35.5 32.1 - 35.9 gm/dL 08/06/2020 5:13 [facility] RDW-CV 12.1 <14.7 % 08/06/2020 5:13 [facility] RDW-SD 38.3 <50.4 fl 08/06/2020 5:13 [facility] PLT 427(H) 141 - 377 K/cmm 08/06/2020 5:13 [facility] MPV 9.9 9.5 - 12.7 fl 08/06/2020 5:13 [facility] % Neutrophils 51.5 % 08/06/2020 5:13 [facility] % Lymphocytes 36.1 % 08/06/2020 5:13 [facility] % Monocytes 9.1 % 08/06/2020 5:13 [facility] % Eosinophils 2.2 % 08/06/2020 5:13 [facility] % Basophils 0.7 % 08/06/2020 5:13 [facility] % Immature Grans 0.4 % 08/07/19 5:13 [facility] Absolute Neutrophils 7.11 2.20 - 8.85 K/cmm 08/06/2020 5:13 [facility] Absolute Lymphocytes 4.98(H) 1.09 - 3.30 K/cmm 08/06/2020 5:13 [facility] Absolute Monocytes 1.26(H) 0.10 - 0.80 K/cmm 08/06/2020 5:13 [facility] Absolute Eosinophils 0.31 0.03 - 0.61 K/cmm 08/06/2020 5:13 [facility] ABS Basophils 0.10 0.01 - 0.11 K/cmm 08/06/2020 5:13 [facility] Absolute Immature Grans 0.05 0.00 - 0.06 K/cmm 08/06/2020 5:13 [facility] Type of Differential: Auto 08/06/2020 5:13 [facility] Blood VENOUS BLOOD / Unknown Venipuncture / Unknown 08/06/2020 4:13 EST 08/06/2020 4:19 EST Kylah Julianne PA-C PACKAGES & DNA PROBE ORDERABLES Performing Organization Address City/[facility]/ZIP Co de Phone Number [facility] [address] [place] [address] * HOLD SST (08/06/2020 4:13 EST) Hold Hold 08/06/2020 5:32 EST [facility] Blood VENOUS BLOOD / Unknown Venipuncture / Unknown 08/06/2020 4:13 EST 08/06/2020 4:19 EST Kyalh Larow PA-C LAB INFO SERVICE AND SUPPORT & PHONE RESULT Performing Organization Address City/[facility]/ZIP Co de Phone Number [facility] [address] [place] [phone] * HOLD LAVENDER TOP (08/06/2020 4:13 EST) Hold Hold 08/06/2020 5:32 EST [facility] Blood VENOUS BLOOD / Unknown Venipuncture / Unknown 08/06/2020 4:13 EST 08/06/2020 4:19 EST Kylah Larow PA-C LAB INFO SERVICE AND SUPPORT & PHONE RESULT Performing Organization Address City/[facility]/ZIP Co de Phone Number [facility] [address] [place] [phone] * HOLD GREEN TOP (08/06/2020 4:13 EST) Hold Hold 08/06/2020 5:32 EST [facility] Blood VENOUS BLOOD / Unknown Venipuncture / Unknown 08/06/2020 4:13 EST 08/06/2020 4:19 EST Kylah Larow PA-C LAB INFO SERVICE AND SUPPORT & PHONE RESULT Performing Organization Address City/[facility]/ZIP Co de Phone Number [facility] [address] [place] [phone] * HOLD BLUE TOP (08/06/2020 4:13 EST) Hold Hold 08/06/2020 5:32 EST [facility] Blood VENOUS BLOOD / Unknown Venipuncture / Unknown 08/06/2020 4:13 EST 08/06/2020 4:19 EST Kylah Whitaker PA-C LAB INFO SERVICE AND SUPPORT & PHONE RESULT [facility] [address] [place] [address] documented in this encounter Visit Diagnoses Diagnosis Non-intractable vomiting with nausea, unspecified vomiting type- Primary documented in this encounter Administered Medications Inactive Administered Medications - up to 3 most recent administrations Medication Order MAR Action Action Date Dose Rate Site diphenhydrAMINE (BENADRYL) injection 25 mg 25 mg, intravenous, NOW X1, 1 dose, On Tue08/06/20 at 0500, STAT Given 08/06/2020 5:06 EST 25 mg haloperidol lactate (HALDOL) 5 mg/mL injection 1 dose, Starting on Tue08/06/20 at 0624, Until Tue08/06/20 at 0628 haloperidol lactate (HALDOL) injection 5 mg 5 mg, intravenous, NOW X1, 1 dose, On Tue08/06/20 at 0630, STAT Given 08/06/2020 6:28 EST 5 mg iohexoL (OMNIPAQUE 350) solution 100 mL 100 mL, intravenous, Once in imaging, 1 dose, Starting on Tue08/06/20 at 0652, Until Tue08/06/20 at 0653, Routine, Imaging Protocol Orders Given 08/06/2020 6:53 EST 95 mL lactated ringers BOLUS 1,000 mL 1,000 mL, intravenous, NOW X1, 1 dose, On Tue08/06/20 at 0500, STAT New Bag 08/06/2020 5:07 EST 1,000 mL LORazepam (ATIVAN) injection 0.5 mg 0.5 mg, intravenous, NOW X1, 1 dose, On Tue08/06/20 at 0500, STAT Given 08/06/2020 5:06 EST 0.5 mg metoclopramide (REGLAN) injection 10 mg 10 mg, intravenous, NOW X1, 1 dose, On Tue08/06/20 at 0500, STAT Given 08/06/2020 5:06 EST 10 mg ondansetron (PF) (ZOFRAN) 4 mg/2 mL injection 1 dose, Starting on Tue08/06/20 at 0409, Until Tue08/06/20 at 0417 ondansetron (PF) (ZOFRAN) injection 4 mg 4 mg, intravenous, NOW X1, 1 dose, On Tue08/06/20 at 0415, STAT Given 08/06/2020 4:17 EST 4 mg documented in this encounter Discontinued Medications Medication Sig Discontinue Reason Start Date End Da te metoclopramide HCl (REGLAN) 10 mg tablet Take 1 Tab by mouth 4 times daily as needed for up to 14 days for Nausea. Reorder 08/04/2020 08/06/2020 documented as of this encounter Active and Recently Administered Medications Times are shown in EST. Scheduled Medication Order 08/04/2020 08/05/2020 08/06/2020 diphenhydrAMINE (BENADRYL) injection 25 mg (COMPLETED) 25 mg, intravenous, NOW X1, 1 dose, On Tue08/06/20 at 0500, STAT 0506 (Given - Provid er: Mignon Young RN) haloperidol lactate (HALDOL) injection 5 mg (COMPLETED) 5 mg, intravenous, NOW X1, 1 dose, On Tue08/06/20 at 0630, STAT 0628 (Given - Provid er: Mignon Young RN) iohexoL (OMNIPAQUE 350) solution 100 mL (COMPLETED) 100 mL, intravenous, Once in imaging, 1 dose, Starting on Tue08/06/20 at 0652, Until Tue08/06/20 at 0653, Routine, Imaging Protocol Orders 0653 (Given - Provid er: Rosa Berry - Comment: 95@3cc/sec.) lactated ringers BOLUS 1,000 mL (COMPLETED) 1,000 mL, intravenous, NOW X1, 1 dose, On Tue08/06/20 at 0500, STAT 0507 (New Bag - Prov ider: Mignon Young RN)0625 (Completed - Provider: Mignon Young RN) LORazepam (ATIVAN) injection 0.5 mg (COMPLETED) 0.5 mg, intravenous, NOW X1, 1 dose, On Tue08/06/20 at 0500, STAT 0506 (Given - Provid er: Mignon Young, MARCELO) metoclopramide (REGLAN) injection 10 mg (COMPLETED) 10 mg, intravenous, NOW X1, 1 dose, On Tue08/06/20 at 0500, STAT 0506 (Given - Provid er: Mignon Young, MARCELO) ondansetron (PF) (ZOFRAN) injection 4 mg (COMPLETED) 4 mg, intravenous, NOW X1, 1 dose, On Tue08/06/20 at 0415, STAT 0417 (Given - Provid er: Mignon Young, MARCELO) documented in this encounter
--- OUTSIDE RECORDS SUMMARY | 2023-12-16 00:39 | XMS_ITS | Encounter Summary ---
Author Organization [facility] Address [address] [place] [address] Care Team Providers Care Motion Picture Narrator Name Role Phone Unavailable Primary Care Provider Unavailabl e Encounter Details Date Type Department Care Team (Late st Contact Info) Description 06/26/2020 Documentation Visit [facility] Obstetrics & Midwifery - [address] [phone] Nohemy Sales MD [address] [facility], Level 4 [place] [address] Social History Tobacco Use Types [...] have Coronavirus / COVID-19? No / Unsure 06/25/2020 10:36 EST documented as of this encounter Functional [...] No 05/04/2020 documented as of this encounter Progress Notes * Nohemy Sales MD - 06/26/2020 1437 EST MFM Attg Received call from PA in PCP office-this pt called stating having SAB with bleeding 1 pad/hr and 10/10 pain. Will have RETAIL MERCHANDISING MANAGER RN call today Nohemy Sales MD documented in this encounter Plan of Treatment Upcoming Encounters Date Type Department Care Team (Late st Contact Info) Description 02/21/2024 9:45 EDT Office Visit [facility] [place] [address] Carrington Calderon MD [address] [facility] 1 [place] [address] 02/27/2024 8:30 EDT Telemedicine [facility] Sleep Program - [place] [address] [place] [phone] Rn, Sleep 02/29/2024 10:30 EDT Appointment [facility] Radiology Nuclear Medicine and PET - [address] [id number] 02/29/2024 14:30 EDT Appointment [facility] Radiology Nuclear Medicine and PET - [address] [id number] 03/01/2024 8:00 EDT Appointment [facility] Radiology Nuclear Medicine and PET - [address] [phone] 03/01/2024 9:30 EDT Appointment [facility] Radiology Nuclear Medicine and PET - [address] [id number] documented as of this encounter Visit Diagnoses Not on filedocumented in this encounter
--- OUTSIDE RECORDS SUMMARY | 2023-12-16 00:39 | XMS_ITS | Encounter Summary ---
Author Organization [facility] Address [address] [place] [address] Care Team Providers Care Airdox Fitter Name Role Phone Unavailable Primary Care Provider Unavailabl e Encounter Details Date Type Department Care Team (Latest Contact Info) Description 06/23/2020 Travel Social History Tobacco Use Types Packs/Day [...] have Coronavirus / COVID-19? No / Unsure 06/23/2020 8:22 EST documented as of this encounter Functional [...] Info) Description 02/21/2024 9:45 EDT Office Visit [facility] Adult Primary Care - [address] [phone] Carrington Calderon MD [address] [place] [phone] 02/27/2024 8:30 EDT Telemedicine [facility] Sleep Program - [address] [address] Rn, Sleep 02/29/2024 10:30 EDT Appointment [facility] Radiology Nuclear Medicine and PET - [address] [id number] 02/29/2024 14:30 EDT Appointment [facility] Radiology Nuclear Medicine and PET - [address] [id number] 03/01/2024 8:00 EDT Appointment [facility] Radiology Nuclear Medicine and PET - [address] [phone] 03/01/2024 9:30 EDT Appointment [facility] Radiology Nuclear Medicine and PET - [address] [id number] documented as of this encounter Visit Diagnoses Not on filedocumented in this encounter
--- OUTSIDE RECORDS SUMMARY | 2023-12-16 00:39 | XMS_ITS | Encounter Summary ---
Author Organization [facility] Address [address] [place] [address] Care Team Providers Care Furnace Mason Name Role Phone Unavailable Primary Care Provider Unavailabl e Reason for Visit * Reason Comments Problem Encounter Details Date Type Department Care Team (Late st Contact Info) Description 06/25/2020 9:00 EST Office Visit [facility] Women's Services - [address] [phone] Ana Coronado MD [address] [place] [address], [address] 4 [place] [address] Unwanted fertility (Primary Dx) Social History Tobacco Use Types [...] Refills Start Date End Da te ondansetron (ZOFRAN) 4 mg tablet Take 1 Tab by mouth every 8 hours as needed for Nausea. 8 Tab 06/25/2020 08/01/2020 documented in this encounter Progress Notes * Ana Coronado MD - 06/25/2020 0900 EST Chief Complaint Patient presents with ??? Problem HPI: Patient is a 35 y.o., , female, seen in ultrasound clinic to follow- up on of unknown location that was diagnosed in the emergency room on June 23. See that note for details. Patient is having increased bleeding and significant cramping. Her hCGs are falling. e also has somenausea with painful cramps. She reports an allergy to ibuprofen, but she did take some because the p ain was so significant. Patient reports diabetes with much improved control. She thinks that her most recent hemoglobin A1c was in the 8 range. She has been working very hard with endocrinology to improve glycemic control in order to proceed with her tubal procedure and permanent sterilization. Sherequests that her tubal be scheduled in the next several months if possible. She previously was counseled extensively on all of her options and of the different procedures and ultimately she has chosen to have both her fallopian tubes removed. It is clear she does not want any future pregnancies and wishes to avoid another miscarriage or interstitial . PMH PSH Past Medical History: Diagnosis Date ??? Anxiety ??? Arthritis 12/05/19- Spine- told years ago ??? Depression ??? Diabetes ([facility]) A1c 10.3 on 11/28/2019 - poorly controlled ??? Difficulty opening mouth 06/13/2020 pain with opening mouth wide ??? Does not exercise 06/13/2020 due to infected toe ??? History of general anesthesia ??? Hx of ectopic 06/20/2020 ??? Irritable bowel syndrome 06/13/2020 ? ? Nausea & vomiting occasionally ??? Obesity, unspecified ??? Osteomyelitis ([facility]) of left great toe ??? Peripheral neuropathy [...] cyst) ??? PILONIDAL CYST EXCISION Social History Family History Social History Tobacco Use ??? Smoking status: Current Every Day Smoker Packs/day: 0.25 Years: 10.00 Pack years: 2.50 Types: Cigarettes Start date: 11/10/2010 Last attempt to quit: 08/07/2019 Years since quittin.8 ??? Smokeless tobacco: Never Used ??? Tobacco [...] ??? Diabetes Paternal Uncle Medications Current Outpatient Medications: ??? blood glucose meter, One Touch Verio Flex meter., Disp: 1 Each, Rfl: 0 ??? blood glucose test strips, One Touch Verio IQ or other brand compatible with meter and covered by patient's insurance. Testing QID., Disp: 100 Each, Rfl: 5 ??? gabapentin (NEURONTIN) 100 mg capsule, Take 1 Cap by mouth 3 times daily. 1 tab AM, noon, 3 tabs in fiordaliza, Disp: 400 Cap, Rfl: 0 ??? insulin aspart U-100 (NOVOLOG FLEXPEN) 100 [...] ), Disp: 27 mL, Rfl: 3 ??? lancets, One Touch Delica or other brand compatible with lancing device and covered by patient's insurance., Disp: 100 Each, Rfl: 5 ??? nicotine (NICODERM CQ) 7 mg/24 hr patch, Apply one patch only daily on skin without hair. Applyto a different skin site at the same time each day., Disp: 14 Patch, Rfl: 0 ??? ondansetron (ZOFRAN) 4 mg tablet, Take 1 Tab by mouth every 8 hours as needed for Nausea., Disp: 8 Tab, Rfl: 0 Allergies Allergies Allergen Reactions ??? Citalopram Other (See Comments) suicidal ideation, approx 2012 ??? Other - See Comments Swelling of throat pomergrante ??? Advil [Ibuprofen] Hives Review of Systems: A ten point review of systems was performed and was negative except for pertinent positives noted in the HPI Objective/Physical Exam: There were no vitals taken for this visit. Exam: General appearance: alert, cooperative US OB FIRST TRIMESTER (LESS THAN 14 WEEKS) TRANSVAGINAL Indication Heavy vaginal bleeding with of unknown location. Falling HCGs. History ======= General History Height 163 cm Height (ft) 5 ft Height (in) 4 in Previous Outcomes 8 Para 0 Hopkins children born (T) 0 Hopkins children born (P) 0 Abortions (A) 7 Hopkins living children (L) 0 Maternal Assessment Height 163 cm Height (ft) 5 ft Height (in) 4 in Physical Exam Initial weight 91 kg Initial weight (lb) 200 lb Initial BMI 34.33 kg/m?? Number of gestational sacs: 1. Dating ======= LMP on: 05/06/2020 Cycle: regular cycle GA by LMP 7 w + 1 d IVAN by LMP : 02/10/2021 Method of dating: Restore dating from previous exam Previous dating: Dating performed on 06/20/2020 Based on the LMP Assigned GA of previous dating 7 w + 1 d Agreed IVAN of previous datin02/10/2021 Assigned: Dating performed on 06/20/2020, based on the LMP Assigned GA 7 w + 1 d Assigned IVAN: 02/10/2021 Assessment Gestational sac: Not visualized. Location: Uncertain. Maternal Structures Uterus / Cervix Uterus: Appears normal Uterus position: Anteverted Uterus other findings: Area of echogenic and heterogenous material within the uterine cavity which is consistent with material which is being passed. This material is now in the upper cavity and no longer in the angle toward the interstitium. Cervix: Appears normal Cervix details: Normal with Nabothian cysts Ovaries / Tubes / Adnexa Rt ovary: Normal with Corpus luteum Rt ovary morphology: Normal physiologic changes Rt ovary D1 3.5 cm Rt ovary D2 1.5 cm Rt ovary D3 2.1 cm Rt ovary mean 2.4 cm Rt ovary vol 5.9 cm cubed Lt ovary: Visualized, normal appearance Lt ovary morphology: normal physiologic changes Lt ovary D1 2.1 cm Lt ovary D2 1.5 cm Lt ovary D3 2.0 cm Lt ovary mean 1.9 cm Lt ovary vol 3.2 cm cubed Pouch of Nicola / Other Structures Cul de Sac: Appears normal Free fluid: No free fluid visualized Method ======== Transvaginal ultrasound examination, probe # 8. View: Sufficient. Impression OB Transvaginal - 95917. 1. of unknown location with findings that [...] No free fluid in cul de sac. Follow-up see office note. Comment ========= O36.80X0 of unknown anatomic location. Ultrasound findings discussed w/patient. Prior ultrasounds reviewed and compared to today's ultrasound. DATE OF SERVICE: 06/25/2020 RH neg - got rhogam in ED 06/23/19 Assessment/Plan: 1. Technically the patient has a of unknown location but ultrasound is highly consistent with a failed intrauterine that is now in the midst of passing. The area of material consistent with tissue is no longer towards the interstitium but is in the uterine cavity and likely will pass in the near future. Patient was advised to use a heating pad I did give her some Zofran for her nausea but otherwise advised that we do not usually use narcotics, as she reports sensitivity to Motrin she should continue with Tylenol. HCGs need to be followed to negative - weekly are fine. 2. She desires permanent sterilization. She is very clear on this and has been consistently requested this since last year. I briefly reviewed procedure and alternatives which she is aware of. She signed the Medicaid tubal form today. I spoke with Dr. Mims, the benign supply specialist chief resident, and I will place a case request for her surgery on the resident OR schedule which she originally was on last summer. Given that she is working with endocrine and has had markedly improved sugars per her, with the last documented hemoglobin A1c of 9 in February, it seems reasonable to move forward to get herbilateral salpingectomy in order to avoid future pregnancies which she strongly wants to do. She will be called with date of surgery and the need to get a preoperative visit. I spent a total of 30 minutes on the date of this encounter as indicated in the above progress note. Ana Coronado MD 06/25/2020 12:46 documented in this encounter Plan of Treatment Upcoming Encounters Date Type Department Care Team (Late st Contact Info) Description 02/21/2024 9:45 EDT Office Visit [facility] Adult Primary Care - [address] [phone] Carrington Calderon MD [address] [phone] 02/27/2024 8:30 EDT Telemedicine [facility] Sleep Program - [address] [address] Rn, Sleep 02/29/2024 10:30 EDT Appointment [facility] Radiology Nuclear Medicine and PET - [address] [phone] 02/29/2024 14:30 EDT Appointment [facility] Radiology Nuclear Medicine and PET - [address] [address] 03/01/2024 8:00 EDT Appointment [facility] Radiology Nuclear Medicine and PET - [address] [phone] 03/01/2024 9:30 EDT Appointment [facility] Radiology Nuclear Medicine and PET - [address] [address] documented as of this encounter Visit Diagnoses Diagnosis Unwanted fertility- Primary documented in this encounter Discontinued Medications Medication Sig Discontinue Reason Start Date End Da te amoxicillin-clavulanate (AUGMENTIN) 875-125 mg per tablet Take 1 Tab by mouth every 12 hours. 06/25/2020 documented as of this encounter Orders Case Request Count Last Ordered Date First Orde red Date CASE REQUEST OPERATING ROOM 1 06/25/2020 documented in this encounter
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
--- OUTSIDE RECORDS SUMMARY | 2023-12-16 00:39 | XMS_ITS | Encounter Summary ---
Author Organization [facility] Address [address] [place] [address] Care Team Providers Care Skiving Machine Operator Name Role Phone Unavailable Primary Care Provider Unavailabl e Reason for Visit * Reason Onset Date Comments Other 06/26/2020 Encounter Details Date Type Department Care Team (Late st Contact Info) Description 06/26/2020 Telephone [facility] Women's Services [address] [address] Rosa Chang, MARCELO Other Social History Tobacco Use Types Packs/Day [...] encounter Miscellaneous Notes * Telephone Encounter - Jenny Heart RN - 06/26/2020 1607 EST Phone call to Stella - she states she did not realize her made phone calls today. She statesshe has been switching between the shower and the toilet all day today. She indicates that bleedingis roughly the same as yesterday, but she is now having pieces of tissue and string clots when she wipes. She states the hard part for her is the excrutiating cramping and the lower back pain th at occur right before she passes tissue/clots, and the vomiting that she has at the same time. She states she has taken a lot of tylenol and is hesitant to take anymore. Has also been using heatingpad, showering, hot water back, changing positions. Bleeding is soaking the center part of her pad about every 1.5 hours (overnight pad), not the front or back is getting soaked d/t patient position she is in. Cramping and pain is the same as when it started on Tuesday/; the clotting/tissueshe only noticed yesterday afternoon. She states with her previous spontaneous abortions, she has had 1 expectant mgmt miscarriage (herfirst one) that ended up in an emergency D&C, and then the rest of her miscarriages she had a D&C. She states they decided yesterday to not do a D&C d/t risk of infection and her recent infection hx (and recent surgery). Patient is just hoping to discuss a way to get some relief from pain and nausea/vomiting and to be able to get some rest since sx have been persisting for a few days now. Is aware of bleeding precautions. Has HOME FURNISHINGS SALES REPRESENTATIVE on-call number as well. Will route to beta book team to please advise further/follow up. * Telephone Encounter - Rosa Salazar RN - 06/26/2020 7068 EST Non-identified VM, left general message: nurse calling from [facility] clinic, calling to check in as we were notified your PCP in regards to a change in your symptoms. Bleeding/pain precautions: If you have vaginal bleeding that soaks 1 maxipad (or superplus tampon)/hr >2hrs in a row, pass blood clots >= size of rema, experience dizziness, lightheadedness, SOB, or severe abdominal pain not helped with medication, then you should have someone take you to the ER.Please call the HOME FURNISHINGS SALES REPRESENTATIVE nurses at [phone] when you receive this message. documented in this encounter Plan of Treatment Upcoming Encounters Date Type Department Care Team (Late st Contact Info) Description 02/21/2024 9:45 EDT Office Visit [facility] Adult Primary Care - [address] [phone] Carrington Calderon MD 1 [facility] Level 1 [place] [phone] 02/27/2024 8:30 EDT Telemedicine [facility] Sleep Program - [address] [place], [place] [address] Rn, Sleep 02/29/2024 10:30 EDT Appointment [facility] Radiology Nuclear Medicine and PET - [address] [id number] 02/29/2024 14:30 EDT Appointment [facility] Radiology Nuclear Medicine and PET - [address] [id number] 03/01/2024 8:00 EDT Appointment [facility] Radiology Nuclear Medicine and PET - [address] [id number] 03/01/2024 9:30 EDT Appointment [facility] Radiology Nuclear Medicine and PET - [address] [phone] documented as of this encounter Visit Diagnoses Not on filedocumented in this encounter
--- OUTSIDE RECORDS SUMMARY | 2023-12-16 00:39 | XMS_ITS | Encounter Summary ---
Author Organization [facility] Address [address] [place] [address] Care Team Providers Care Compensator Name Role Phone Unavailable Primary Care Provider Unavailabl e Encounter Details Date Type Department Care Team (Late st Contact Info) Description 06/21/2020 9:15 EST Phlebotomy Only [facility] ED Center 2 Phlebotomy [address] [place] [address] Lathe Scalper Operator, Acc Phlebotomy of unknown anatomic location Social History Tobacco Use Types Packs/Day Years [...] [facility] Adult Primary Care - [address] [phone] Carrington Calderon MD [address] [place] [phone] 02/27/2024 8:30 EDT Telemedicine [facility] Sleep Program - [address] [phone] Rn, Sleep 02/29/2024 10:30 EDT Appointment [facility] Radiology Nuclear Medicine and PET - [address] [phone] 02/29/2024 14:30 EDT Appointment [facility] Radiology Nuclear Medicine and PET - [address] [phone] 03/01/2024 8:00 EDT Appointment [facility] Radiology Nuclear Medicine and PET [address] [phone] 03/01/2024 9:30 EDT Appointment [facility] Radiology Nuclear Medicine and PET [address] [address] documented as of this encounter Procedures Procedure Name Priority Date/Time Associated Diagnosis Comments QUANT BETA HCG, Routine 06/21/2020 9:14 EST of unknown anatomic location documented in this encounter Results * (ABNORMAL) QUANT BETA HCG, (06/21/2020 9:14 EST) Beta HCG Quant, 152(H) <5 mIU/ml 06/21/2020 11:01 EST [facility] Comment: NOTE: : Negative: Less than 5mIU/mL Indeterminant: Between 5 and 25 mIU/mL, recommend repeat testing in 48 hours Positive: Greater than 25 mIU/mL The results of this assay can be falsely lowered due to the consumption of Biotin. Blood VENOUS BLOOD / Unknown Venipuncture / Unknown 06/21/2020 9:14 EST 06/21/2020 10:14 EST David Martínez MD CHEMISTRY & BLOOD GAS ORDERABLES [facility] [address] [place] [address] documented in this encounter Visit Diagnoses Diagnosis of unknown anatomic location state, incidental documented in this encounter
--- OUTSIDE RECORDS SUMMARY | 2023-12-16 00:39 | XMS_ITS | Encounter Summary ---
Author Organization [facility] Address [address] [place] [address] Care Team Providers Care Casino Enforcement Agent Name Role Phone Unavailable Primary Care Provider Unavailabl e Encounter Details Date Type Department Care Team (Latest Contact Info) Description 07/02/2020 Travel Social History Tobacco Use Types Packs/Day [...] 02/21/2024 9:45 EDT Office Visit [facility] Adult Primary Care - [address] [phone] Carrington Calderon MD [address] [place] [phone] 02/27/2024 8:30 EDT Telemedicine [facility] Sleep Program - [address] [address] Rn, Sleep 02/29/2024 10:30 EDT Appointment [facility] Radiology Nuclear Medicine and PET - [address] [phone] 02/29/2024 14:30 EDT Appointment [facility] Radiology Nuclear Medicine and PET - [address] [phone] 03/01/2024 8:00 EDT Appointment [facility] Radiology Nuclear Medicine and PET [address] [phone] 03/01/2024 9:30 EDT Appointment [facility] Radiology Nuclear Medicine and PET - [address] [address] documented as of this encounter Visit Diagnoses Not on filedocumented in this encounter
--- OUTSIDE RECORDS SUMMARY | 2023-12-16 00:39 | XMS_ITS | Encounter Summary ---
Author Organization [facility] Address [address] [place] [address] Care Team Providers Care Personnel Representative Name Role Phone Unavailable Primary Care Provider Unavailabl e Reason for Visit * Reason Onset Date Comments Follow-up 06/21/2020 Encounter Details Date Type Department Care Team (Late st Contact Info) Description 06/21/2020 Telephone [facility] Women's Services [facility] [address] [place], [place] [phone] Mackenzie Kenyon MD [address] [phone] Follow-up Social History Tobacco Use Types Packs/Day Years [...] have Coronavirus / COVID-19? No / Unsure 06/21/2020 9:01 EST documented as of this encounter Functional [...] encounter Miscellaneous Notes * Telephone Encounter - Mackenzie Kenyon MD - 06/21/2020 1205 EST TC to follow up HCG. Patient reports no vaginal bleeding since last evening. She reports in the morning she was changinga pad every few hours for comfort, not because it was soaked. She denies abdominal pain or cramping. Patient has had multiple prior miscarriages, and reports she can not answer if this would be a desired due to her history. Cristy Luo is a 35 yo with hx interstitial treated with MTX who had incidental pos UPT on 06/16 followed by vaginal bleeding this week. On 06/19, she had HCG 108. On 06/20, she had US at 6+2 by certain LMP showing small amount of heterogeneous material in the uterus with tissue extending into the left cornua but no clear interstitial --no clear sac, no adnexal masses and no significant fluid collection in the pelvis. Today, HCG was 152, which is a 41% rise. We discussed that this rise is less than what would be typically expected for a normally progressing , but is not completely outside the realm of what has been reported in what resulted in anormal and is not diagnostic of a non-viable at this time. - Ectopic precautions reviewed - Repeat HCG Friday 06/23. Discussed with Dr. Kevon Kenyon MD 06/21/2020 12:12 PGY4, OBGYN Pager #[phone] documented in this encounter Plan of Treatment Upcoming Encounters Date Type Department Care Team (Late st Contact Info) Description 02/21/2024 9:45 EDT Office Visit [facility] Adult Primary Care - [address] [phone] Carrington Calderon MD [address] [place] [phone] 02/27/2024 8:30 EDT Telemedicine [facility] Sleep Program - [address] [phone] Rn, Sleep 02/29/2024 10:30 EDT Appointment [facility] Radiology Nuclear Medicine and PET [address] [id number] 02/29/2024 14:30 EDT Appointment [facility] Radiology Nuclear Medicine and PET - [address] [phone] 03/01/2024 8:00 EDT Appointment [facility] Radiology Nuclear Medicine and PET [address] [phone] 03/01/2024 9:30 EDT Appointment [facility] Radiology Nuclear Medicine and PET [address] [phone] documented as of this encounter Visit Diagnoses Diagnosis of unknown anatomic location- Primary state, incidental documented in this encounter
--- OUTSIDE RECORDS SUMMARY | 2023-12-16 00:39 | XMS_ITS | Encounter Summary ---
Author Organization [facility] Address [address] [place] [address] Care Team Providers Care Coremaker Supervisor Name Role Phone Unavailable Primary Care Provider Unavailabl e Reason for Visit * Reason Onset Date Comments No Show 07/16/2020 [place] 07/15/20 Encounter Details Date Type Department Care Team (Late st Contact Info) Description 07/16/2020 Telephone [facility] Endocrinology - [address] [address] [address] CDE 62 [facility] [address] [place] [address] No Show (Yohannes 07/15/20) Social History Tobacco Use Types Packs/Day Years [...] encounter Miscellaneous Notes * Telephone Encounter - Natasha Burris - 07/16/2020 0908 EST Reason for Call: No Show Call to patient re: no show appt 07/15/20 with Luciana Sheffield. Natasha Burris 07/16/2020 9:08 documented in this encounter Plan of Treatment Upcoming Encounters Date Type Department Care Team (Late st Contact Info) Description 02/21/2024 9:45 EDT Office Visit [facility] Adult Primary Care [address] [address] Carrington Calderon MD [address] [place] [address] 1 [place] [phone] 02/27/2024 8:30 EDT Telemedicine [facility] Sleep Program - [address] [address] Rn, Sleep 02/29/2024 10:30 EDT Appointment [facility] Radiology Nuclear Medicine and PET - [address] [phone] 02/29/2024 14:30 EDT Appointment [facility] Radiology Nuclear Medicine and PET - [address] [phone] 03/01/2024 8:00 EDT Appointment [facility] Radiology Nuclear Medicine and PET - [address] [phone] 03/01/2024 9:30 EDT Appointment [facility] Radiology Nuclear Medicine and PET [address] [phone] documented as of this encounter Visit Diagnoses Not on filedocumented in this encounter
--- OUTSIDE RECORDS SUMMARY | 2023-12-16 00:39 | XMS_ITS | Encounter Summary ---
Author Organization [facility] Address [address] [place] [address] Care Team Providers Care Specimen Processor Name Role Phone Unavailable Primary Care Provider Unavailabl e Encounter Details Date Type Department Care Team (Late st Contact Info) Description 07/28/2020 11:15 EST Phlebotomy Only [facility] ED Center 2 Phlebotomy [address] [place] [address] Commercial Internship, Acc Phlebotomy Encounter for sterilization Social History Tobacco Use Types Packs/Day Years [...] have Coronavirus / COVID-19? No / Unsure 07/28/2020 10:21 EST documented as of this encounter Functional [...] Info) Description 02/21/2024 9:45 EDT Office Visit [facility] Adult Primary Care - [address] [phone] Carrington Calderon MD 1 [facility] 1 [place] [phone] 02/27/2024 8:30 EDT Telemedicine [facility] Sleep Program - [address] [phone] Rn, Sleep 02/29/2024 10:30 EDT Appointment [facility] Radiology Nuclear Medicine and PET - [address] [phone] 02/29/2024 14:30 EDT Appointment [facility] Radiology Nuclear Medicine and PET - [address] [phone] 03/01/2024 8:00 EDT Appointment [facility] Radiology Nuclear Medicine and PET [facility] [address] [place] [address] 03/01/2024 9:30 EDT Appointment [facility] Radiology Nuclear Medicine and PET [facility] [address] [place] [address] documented as of this encounter Procedures Procedure Name Priority Date/Time Associated Diagnosis Comments SCREENING GLUCOSE Routine 07/28/2020 11: 25 EST Encounter for sterilization documented in this encounter Results * (ABNORMAL) SCREENING GLUCOSE (07/28/2020 11:25 EST) Glucose, Screening 260(H) 70 - 100 mg/dL 07/28/2020 12:39 EST [facility] Comment:Elevated screening g lucose value greater than 180 mg/dl, please order follow up Hemoglobin A1C. Blood VENOUS BLOOD / Unknown Venipuncture / Unknown 07/28/2020 11:25 EST 07/28/2020 12:04 EST Whit Rae MD CHEMISTRY & BLOOD GA S ORDERABLES [facility] [address] [place] [address] documented in this encounter Visit Diagnoses Diagnosis Encounter for sterilization Sterilization documented in this encounter
--- OUTSIDE RECORDS SUMMARY | 2023-12-16 00:39 | XMS_ITS | Encounter Summary ---
Author Organization [facility] Address [address] [place] [address] Care Team Providers Care Corporate Travel Agent Name Role Phone Unavailable Primary Care Provider Unavailabl e Reason for Visit * Reason Onset Date Comments No Show 06/27/2020 Encounter Details Date Type Department Care Team (Late st Contact Info) Description 06/27/2020 Telephone [facility] Adult Primary Care - [address] [phone] Tonja Alejandro PA-C [address] [place] [address] [place] [phone] No Show Social History Tobacco Use [...] * Telephone Encounter - Karen Trujillo - 07/04/2020 1114 EST Patient was unaware that this appointment was scheduled for her. * Telephone Encounter - Krystal Wang - 06/27/2020 1428 EST Pt no showed appt today. documented in this encounter Plan of Treatment Upcoming Encounters Date Type Department Care Team (Late st Contact Info) Description 02/21/2024 9:45 EDT Office Visit [facility] Adult Primary Care - [address] [address] Carrington Calderon MD [address] [phone] 02/27/2024 8:30 EDT Telemedicine [facility] Sleep Program - [address] [address] Rn, Sleep 02/29/2024 10:30 EDT Appointment edical [place] Radiology Nuclear Medicine and PET - [address] [phone] 02/29/2024 14:30 [facility] [address] [phone] 03/01/2024 8:00 EDT Appointment edical [place] Radiology Nuclear Medicine and PET - [address] [phone] 03/01/2024 9:30 EDT Appointment [facility] Radiology Nuclear Medicine and PET - [address] 190621 documented as of this encounter Visit Diagnoses Not on filedocumented in this encounter
--- OUTSIDE RECORDS SUMMARY | 2023-12-16 00:39 | XMS_ITS | Encounter Summary ---
Author Organization [facility] Address [address] [place] [address] Care Team Providers Care Floral Arranger Name Role Phone Unavailable Primary Care Provider Unavailabl e Reason for Visit * Reason Onset Date Comments Surgery Scheduling 06/30/2020 Encounter Details Date Type Department Care Team (Late st Contact Info) Description 06/30/2020 Telephone [facility] Women's Services [address] [phone] Charu Flynn MD 111 [facility], Level 4 [place] [address] Surgery Scheduling Social History Tobacco Use Types [...] * Telephone Encounter - Mere Hanna - 06/30/2020 1536 EST Called pt and scheduled surgery for 08/20. Pt aware they need covid test 5-7 days prior followed by quarantine until surgery date. Pre-op, PAT, and POV scheduled. Will mail surgery packet to confirmedaddress. Tentative surgery time 3p. No further questions and pt in agreement with plan. documented in this encounter Plan of Treatment Upcoming Encounters Date Type Department Care Team (Late st Contact Info) Description 02/21/2024 9:45 EDT Office Visit [facility] Adult Primary Care - [address] [address] Carrington Calderon MD 1 [facility] 1 [place] [phone] 02/27/2024 8:30 EDT Telemedicine [facility] Sleep Program - [address] [address] Rn, Sleep 02/29/2024 10:30 EDT [facility]ment [facility] Radiology Nuclear Medicine and PET - [address] [phone] 02/29/2024 14:30 ED[facility] [address] [id number] 03/01/2024 8:00 EDT Appointment [facility] Radiology Nuclear Medicine and PET - [address] [phone] 03/01/2024 9:30 EDT Appointment [facility] Radiology Nuclear Medicine and PET - [address] [phone] documented as of this encounter Visit Diagnoses Not on filedocumented in this encounter
--- OUTSIDE RECORDS SUMMARY | 2023-12-16 00:39 | XMS_ITS | Encounter Summary ---
Author Organization [facility] Address [address] [place] [address] Care Team Providers Care Deputy Brand Inspector Name Role Phone Unavailable Primary Care Provider Unavailabl e Reason for Visit * Reason Comments Telemedicine Video Visit Encounter Details Date Type Department Care Team (Late st Contact Info) Description 07/02/2020 11:30 EST Telemedicine [facility] Infectious Disease - [address] [id number] Mushtaq Light, DO [address] [facility], [address] [place] [address] Osteomyelitis of left foot, unspecified type (HCC-CMS) (Primary Dx) Social History Tobacco Use [...] as of this encounter Progress Notes * Mushtaq Light, - 07/02/2020 1130 EST I spent a total of 30 minutes on the date of this encounter meeting with the patient and reviewing documentation/coordinating care as described in the above note. No procedures were performed at the time of the visit. Division of Infectious Disease Follow up/Progress Note 07/02/20 13:12 TELEMEDICINE VIDEO VISIT Today's visit was provided through telemedicine video conferencing: The location of the patient : [facility] The location of the provider: Office The following staff and their role did participate in today's encounter visit: Mushtaq Light, DO The concept of ???Telemedicine?? has been described [...] in patient???s medical or mental health care. Prior antibiotics: Ancef 2 g IV every 8 start day??4??March, stop day 20 April Flagyl 500 p.o. 3 times daily start day??4??March, stop day 20 April. ??Vancomycin started 03 May, stop day 04 May when she signed out AMA due to childcare concerns. ?? Current antibiotics: Augmentin 875 p.o. twice daily started 05 May until 24 June 2020. ?? HISTORY OF PRESENT ILLNESS:?? Ms.??Young?is a 35 y.o.??woman??with past medical history significant for poorly controlled??T2DM??c/b neuropathy (Hgb A1c 10 in November), morbid obesity,??and??tobacco??dependence who was seen via Zoom visit as she is status post left great toe amputation performed on 16 June 2020 for chronic os teomyelitis. Surgeons obtained clean clinical margins from histo path standpoint, we had planned oncontinuing her antibiotics for a total of 1 week postop and then stopping. Since stopping her antibiotic on 24 June, patient states she is doing well. She is scheduled for a follow-up visit with podiatry today for a wound check/suture removal. No diarrhea with the antibiotics but she does admit to some nausea which could be related to her new diagnosis of . ?? For background: ?? Initially admitted 03/06 - 03/12/2020 for left great toe osteomyelitis and associated left lower extremity SSTI. Bone biopsy was polymicrobial (MSSA,??GBS,??S.??anginosus, prevotella) and??MRI [id number] distal phalanx osteomyelitis with possible early proximal involvement.?No surgical interventions were performed at the time. ??She was discharged to complete 6 weeks of cefazolin 2gm q8h and??PO metronidazole 500mg q8h, with dressing changes and short-interval podiatry follow-up.?Per notes, she missed several of her follow-up appointments. ??Her initial stop date was 20 April and PICC line was pulled ?? In follow-up w/ podiatry on 04/25/2020, noted to have decrease in size of ulcer and no longer probed to bone. Inflammatory markers were normal on several occasions (03/18, 03/25, 04/01). Follow-up w/podiatry again on 04/30 without evidence of active infection but did probe deep.? Readmitted briefly in late April due to increased drainage from the ulcer of her left plantar great toe, increasing pain and swelling in the region. In the ER, her CRP was 39.2 and WBC 17. She wasgiven a dose of vancomycin, blood cultures were drawn, and she was admitted to medicine. An MRI done the following day showed??Interval progression of osteomyelitis in the first proximal phalanx and??Interval improvement of osteomyelitis in the first distal phalanx. Patient was going to be evaluated by podiatry the following day but had to sign out AMA that evening as she had no one to take care of her children. ?? We contacted patient the following day and arrange for podiatry follow-up and started her on Augmentin which she was on from 05 May until more recently stopping on 24 June 2020. Patient had same day surgery on 16 June 2020 where she had her left great toe amputated. Cultures collected intraoperatively are growing polymicrobial organisms (see below) but the histopathology revealed a clear margin. Per patient report, she is feeling very well postoperatively. She has some nausea that probably is related to the new diagnosis of but she denies diarrhea. Her left great toe still has the dressing intact and she is going to podiatry today to have suture removal was but denies any significant foot pain. ?? REVIEW OF SYSTEMS: 10-point review of systems is negative except as mentioned in the HPI and as noted here. ?? PAST MEDICAL ? Past Medical History: Diagnosis Date ??? Anxiety ? Arthritis ? 12/05/19- Spine- told years ago ??? Diabetes ([facility]) ? A1c 10.3 on 11/28/2019 ??? History of general anesthesia ? Nausea & vomiting ? Obesity, unspecified ? Peripheral neuropathy ? 12/05/19- Bilateral feet ??? Skin problem ? 11/28/19- Per MD notes, left foot with redness and swelling, and open wound. WBC count 14.38. MRItoday to rule out osteomyelitis. ??? Spontaneous miscarriage 09/04/2015 ?? 02/18, 08/19. ??Followed by Dr. López[facility] in OBGYN ? SURGICAL HISTORY:? Past Surgical History: Procedure Laterality Date ??? 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 DILATION AND CURETTAGE OF UTERUS ? DILATION AND CURETTAGE OF UTERUS ? DILATION AND CURETTAGE OF UTERUS ? DILATION AND CURETTAGE OF UTERUS ? DILATION AND CURETTAGE OF UTERUS ? DILATION AND CURETTAGE OF UTERUS ? OTHER SURGICAL HISTORY ? tailbone (mostlikely pilonidal cyst) ??? PILONIDAL CYST EXCISION ? FOREIGN BODIES:??None ?? SOCIAL HISTORY:? 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 ?? Social History ? Socioeconomic History ??? Marital status: ? Spouse name: Fermin Luo ??? Number of children: Not on file ??? Years of education: Not on file ??? Highest education level: Not on file Occupational History ??? Not on file Social Needs ??? Financial resource strain: Not on file ??? Food insecurity ? Worry: Never true ? Inability: Never true ??? Transportation needs ? Medical: Not on file ? Non-medical: Not on file Tobacco Use ??? Smoking status: Current Every Day Smoker ? Packs/day: 0.02 ? Years: 8.00 ? Pack years: 0.16 ? Types: Cigarettes ? Start date: 11/10/2010 ? Last attempt to quit: 08/07/2019 ? Years since quittin.7 ??? Smokeless tobacco: Never Used Substance and Sexual Activity ??? Alcohol use: Not Currently ? Alcohol/week: 0.0 standard drinks ? Frequency: Monthly or less ? Drinks per session: 1 or 2 ? Binge frequency: Never ? Comment: very rare ??? Drug use: Yes ? Types: Marijuana ? Comment: 1X/DAY FOR ANXIETY ??? Sexual activity: Yes ? Partners: Male Lifestyle ??? Physical activity ? Days per week: Not on file ? Minutes per session: Not on file ??? Stress: Not on file Relationships ??? Social connections ? Talks on phone: Not on file ? Gets together: Not on file ? Attends anabaptism service: Not on file ? Active member of club or organization: Not on file ? Attends meetings of clubs or organizations: Not on file ? Relationship status: Not on file ??? Intimate partner violence ? Fear of current or ex partner: Not on file ? Emotionally abused: Not on file ? Physically abused: Not on file ? Forced sexual activity: Not on file Other Topics Concern ??? Not on file Social History Narrative ??? Not on file ? FAMILY HISTORY:? Problem Relation Name Comments Diabetes Mother ? Diabetes Maternal Grandmother ? Diabetes Maternal Grandfather ? Diabetes Paternal Grandmother ? Diabetes Paternal Grandfather ? The Family History was reviewed and is non-contributory for a past history of infection or immunocompromised state. ?? ALLERGIES: ? Allergies Allergen Reactions ??? Citalopram Other (See Comments) ? suicidal ideation, approx 2012 ??? Other - See Comments Swelling of throat ? pomergrante ??? Advil [Ibuprofen] Hives ? PHYSICAL EXAM: ?? Deferred as this is a Zoom visit and patient was evaluated while she was walking around the mall. ?? LABORATORY: Reviewed in detail in [facility]ISM. 04 May ESR 36, CRP 39, WBC 13.4 ? MICROBIOLOGY DATA: Reviewed in detail in [facility]ISM. Pertinent for: ?? 03/07 left toe (bone): few polys, few MSSA, few GBS, few strep anginosus, moderate prevotella 05/03 covid-19 BATTERY RECHARGER swab: negative 05/04 blood cultures:06/09 bottles growing corynebacterium (presumed contaminant) 06/16/2020 left great toe histopathology: A. TOE, LEFT GREAT, AMPUTATION: - Acute osteomyelitis. - Disarticulated joint with no gross evidence of acute osteomyelitis. - Skin with ulceration and acute cellulitis. 06/16/2020 left great toe culture: MSSA, Prevotella,anaerococcus, Streptococcus agalactiae. IMAGING DATA: ??personally reviewed 03 May x-ray:??AP,??oblique, and lateral radiographs of the??left foot??demonstrate no acute fracture or dislocation, no evidence of osteolysis, small amount of soft tissue swelling on the medial aspect of the ankle. 04 May 2020 MRI left foot: 1. ??Interval progression of osteomyelitis in the first proximal phalanx. 2. ??Interval improvement of osteomyelitis in the first distal phalanx. 3. ??Diffuse soft tissue swelling with an ulcer on the plantar aspect of the first great toe. ??No significant fluid collection. ?? ASSESSMENT: ?? 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 ?? Patient then developed drainage from the same left toe plantar ulcer noted 2 weeks later and an MRI performed 04 [place] interval progression of osteomyelitis in the first proximal phalanx. Patient restarted on a course of p.o. Augmentin which eventually led her to a left great toe amputation on 16 June 2020 with what looks like clean margins based on histo path. Cultures are polymicrobial but suspect this is not clinically relevant at this point. Review of systems negative except for some nausea that is probably related to her . Patient had a scheduled stop of her Augmentin 1 week postop and is doing very well off her antibiotics. She sees podiatry later on today for a wound check. 2. diagnosed June 2020, patient being followed by obstetrics 3. Corynebacterium noted in blood cultures from April, presumed contaminant. 4. Diabetes 5. Obesity 6. Some challenges with childcare back in April 2020 that led to her signing out AMA. 7. Smoking cigarettes. 8. Frequent clinic no-shows for endocrinology, ID and podiatry. ?? RECOMMENDATIONS:? 1. Will communicate with Dr. Navarro as she is seeing the patient later on today. As long as the wound continues to look good, we will just keep her off antibiotics and focus on good diabetes management. 2. Optimize diabetes management 3. Smoking cessation 4. Obstetrical follow-up already scheduled. ?? NICOLE Light staff documented in this encounter Plan of Treatment Upcoming Encounters Date Type Department Care Team (Late st Contact Info) Description 02/21/2024 9:45 EDT Office Visit [facility] Adult Primary Care - [address] [phone] Carrington Calderon MD [address] [facility] [address] [place] [id number] 02/27/2024 8:30 EDT Telemedicine [facility] Sleep Program - [address] [phone] Rn, Sleep 02/29/2024 10:30 EDT Appointment [facility] Radiology Nuclear Medicine and PET - [address] [phone] 02/29/2024 14:30 EDT Appointment [facility] Radiology Nuclear Medicine and PET - [address] [phone] 03/01/2024 8:00 EDT [facility] Rad[facility] Nuclear Medicine and PET - [address] [id number] 03/01/2024 9:30 EDT Appointment [facility] Radiology Nuclear Medicine and PET - [address] [id number] documented as of this encounter Visit Diagnoses Diagnosis Osteomyelitis of left foot, unspecified type ([facility])- Primary documented in this encounter
--- OUTSIDE RECORDS SUMMARY | 2023-12-16 00:39 | XMS_ITS | Encounter Summary ---
Author Organization [facility] Address [address] [place] [address] Care Team Providers Care Custom Grinder Name Role Phone Unavailable Primary Care Provider Unavailabl e Reason for Visit * Reason Comments Emesis BIBEMS for emesis, r eports it happens everyday but today is worse, c/o chest pain, dyspnea, black stools. Clear vomit with pink/brown/red tinge in a bag, blood sugar in the 300s by EMS. Left great toe amputation in Jun with subsequent osteo, also hx of 8 miscarriages, due for hysterectomy in 2 weeks Encounter Details Date Type Department Care Team (Late st Contact Info) Description 08/04/2020 6:47 EST - 08/04/2020 11:43 EST Emergency [facility] Emergency Department - [address] [address] Benita Sol MD [address] [place] [address], [address] [place] [address] Non-intractable vomiting with nausea, unspecified vomiting type (Primary Dx); Generalized abdominal pain; Diarrhea, unspecified type Discharge Disposition: Home or Self Care [...] 7:19 EST documented as of this encounter Last Filed Vital Signs Vital Sign Reading Time Taken Comments Blood Pressure 123/66 08/04/2020 1135 EST Pulse 70 08/04/2020 0650 EST Temperature 35.8 ??C (96.4 ??F) 08/04/2020 0650 EST Respiratory Rate 18 08/04/2020 1135 EST Oxygen Saturation 98% 08/04/2020 1135 EST Inhaled Oxygen Concentration - - Weight 90.7 kg (200 lb) 08/04/2020 0650 EST Height 162.6 cm (5' 4) 08/04/2020 0650 EST Body Mass Index 34.33 08/04/2020 0650 EST [...] this encounter Discharge Instructions * Discharge Instructions* Asuncion Telles MD - 08/04/2020 11:31 EST -Thank you for choosing [facility] for your medical care today. You were evaluated today for abdominal pain, nausea, vomiting, and diarrhea. Your laboratory analysis showed no significant abnormalities, though it was suggestive of possible infection. It is likely that a viral illness is responsible for your vomiting and diarrhea. Additionally, your ultrasound imaging showed no abnormalities. -You are being prescribed metoclopramide (Reglan) for nausea. You may take this medication up to 4 times daily as needed for nausea. -Please continue to drink clear fluids for hydration. -It is recommended that you follow-up with your primary care provider for further evaluation of your chronic nausea, as this may be related to your diabetes. Cessation of marijuana use may also be beneficial for your nausea/vomiting. -Please return to the emergency department if you experience worsening pain, uncontrolled vomiting or diarrhea, weakness/dizziness, loss of consciousness, fever, chest pain, shortness of breath or other concerning symptoms. documented in this encounter Medications at Time [...] for up to 14 days for Nausea. 14 Tab 08/04/2020 08/06/2020 nicotine (NICODERM CQ) 7 mg/24 hr patch [...] for up to 14 days for Nausea. 14 Tab 08/04/2020 08/06/2020 documented in this encounter Discharge Disposition Disposition Code Departure Means Destination Home or Self Usp documented in this encounter ED Notes * Valencia Red RN - 08/04/2020 1140 EST AVS and prescriptions reviewed w/ Pt's mother, no further questions at this time. Pt left on foot. * Valencia Red RN - 08/04/2020 0926 EST Pt resting comfortably in stretcher at this time * Valencia Red RN - 08/04/2020 0730 EST Pt incontinent of soft dark brown stool. Pt OOB to commode, medium BM. This RN and mother assisted with hygiene, and linen change. Pt endorsing anxiety, CP, abd pain. Fluids and zofran administered. Pt refusing COVID swab at this time. * Benita Sol MD - 08/04/2020 0714 EST This patient received an evaluation and medical screening exam for emergent medical conditions at the [facility] on 08/04/2020. This note was created and authored by ASUNCION TELLES MD working under the supervision of Benita Sol MD. This documentation is recorded by Toro Rubin acting as Scribe under the direction and presence ofBenita Sol MD and ASUNCION TELLES MD. Benita Sol MD and ASUNCION TELLES MD: We personally performed the services recorded by the scribe in our presence. We confirm the scribe's documentation has been reviewed by us to accurately and completely record our work, treatment, procedures, and medical decision making. ED Attending's Supervisory Statement I, Benita Sol MD, performed a history and exam of this patient and discussed the case with the resident. I have reviewed and edited this note, and the documentation is consistent with my findings, assessment and plan. I fully participated in the medical decision making. CINTHYA Luo is a 35 y.o. female with a history significant for type 2 diabetes mellitus, osteomyelitis w/left toe amputation, and recent miscarriage (06/2020) who presents to the ED for emesis. Per the patient and her mother, she awoke at approximately 0300 this morning with nausea, emesis, and diarrhea. The patient symptoms have been accompanied by diffuse abdominal pain, and chest pain. The patient's mother notes seeing blood in the patient's emesis and dark stools. The patient also endorses daily nausea, emesis, and diarrhea that has been persistent for the past 2-3 months. She statesthat symptoms typically resolve throughout the day, and that today's emesis and abdominal pain are much worse as compared to prior events. The patient denies recent travel, antibiotic use, and known sick contacts. She endorses daily marijuana use for anxiety. She did not take pain medication or antiemetics prior to arrival to the ED this morning. History was provided by: The patient, the patient's mother and prior medical records Patient's pertinent PMH, FH, SH were reviewed and updated PRN. ROS A 10-point review of systems was performed. The patient answered negative to all questions with theexceptions of those explicitly detailed as positives in the HPI. Pertinent negatives are also explicitly stated. Physical Exam Vital Signs Vitals Reassessment?: Yes Temp: 35.8 ??C (96.4 ??F) Temp src: Oral Pulse: 70 Heart Rate: 60 BPM Resp: 18 SpO2: 98 % BP: 123/66 BP MAP: 74 mm Hg BP Device: BP Machine BP Patient Position: Semi fowlers BP Cuff Location: Right arm O2 Device: None (Room air) Nursing notes and vital signs were reviewed. Constitutional: Patient in moderate distress due to pain, observed to have emesis and diarrhea during interview and examination. HEENT: PEERL, EOMI, clear conjunctivae. Mouth: Moist oral mucosa without apparent lesions. Neck: Full ROM, no cervical LAD. Heart: Bradycardic, appears well perfused; no abnormal heart sounds on auscultation. Lungs: No audible airway noises. Bilateral chest rise. No respiratory distress or accessory muscle use. Lungs clear to auscultation bilaterally. Abdomen: Nondistended, diffuse tenderness to palpation without rebound or guarding. Skin: No overt rashes or lesions on exposed skin. MSK: Moving extremities spontaneously, warm, radial/DP/PT pulses 2+ b/l. Neuro: CN 3, 4, 6, 7 evaluated and intact. Normal speech, gait wnl, strength and sensation to lighttouch wnl in UE/LE/b/l. Results An EKG was obtained and independently interpreted: Rate of 56, normal axis, no ST or T wave changessuggestive of acute cardiac ischemia, no evidence of cardiac dysrhythmia Laboratory results independently reviewed, significant for: -Glucose: 325 -AST/ALT: 62/16 -Lipase: 131 -WBC: 16.23 -Hemoglobin/HCT: 14.1/39.2 -Platelets: 395 -Absolute neutrophils: 11.51 -Troponin <0.034 -Quant beta hCG <5 I, ED RESIDENT, ASUNCION TELLES MD, performed the limited Abdomen Bedside Ultrasound: Findings include no gallstones. Normal gallbladder size. No pericystic fluid. Appendix not visualized. No peritoneal free fluid visualized. Study performed and images reviewed and interpreted under supervision of ED attending, Benita Sol MD. Please see formal report in the EPIC Images section. Images savedin PACS. I, ED ATTENDING, Benita Sol MD, attest to the limited Abdomen Bedside Ultrasound: Findings as noted above. I was present for and supervised during pendleton and critical portions of the procedure. Images reviewed and independently interpreted by myself. I agree with the findings noted above. Procedures Procedures Medical Decision Making / ED Course Cristy uLo is a 35 y.o. female with history significant for type 2 diabetes mellitus, osteomyelitis w/left toe amputation, and recent miscarriage (06/2020) who presents to the ED for emesis. Differential diagnosis on arrival includes but is not limited to DKA, acute cholecystitis, acute appendicitis, SBO, Ericka-Longo tear, Boerhaave's syndrome, UTI, electrolyte abnormality, COVID-19 and gastroenteritis. Plan of care includes CBC to evaluate for evidence of infection and/or anemia, CMP and lipase to evaluate for electrolyte abnormality and/or abdominal organ dysfunction, and urinalysisto evaluate for UTI. The patient presented to the [facility] ED endorsing nausea with emesis. Per the patient, she has experienced several months of daily nausea/vomiting, though she notes that the most recent episode this morning is more severe than usual. Nausea, emesis, and diarrhea began at approximately 0300. Laboratory analysis was significant for hyperglycemia (325) and leukocytosis (16.23). Elevated neutrophils are also present (11.51). Upon evaluation of LFTs and lipase there is no evidence of hepatitis or pancreatitis. Normal bilirubin levels suggest no evidence of biliary obstruction. On evaluation of the patient's stool and vomitus, no glen blood was noted. There was less concern for a significant GI bleed, including Boerhaave syndrome and Ericka-Longo tear, due to the patient's emesis. Thepatient's chest pain is likely attributable to her frequent emesis. No evidence of ischemia was noted on troponin or EKG. it is likely that the patient's presenting symptoms are attributable to a viral gastrointestinal illness. During ED course, the patient was administered a 1 L IV bolus of lactated Ringer solution. Prior toarrival to the ED, the patient was administered IV normal saline by EMS. She was also given 4 mg IVondansetron for nausea, 0.5 mg IV Ativan for anxiety, and 1 gram IV acetaminophen for abdominal pain. On reevaluation, the patient endorsed continuing nausea/emesis and anxiety. She was administered an additional 0.5 mg dose of IV Ativan as well as 10 mg IV Reglan. On reexamination, the patient reported an improvement in her abdominal pain and nausea. She was able to tolerate p.o. intake of ice water without difficulty. Nupol-up-hxfy ultrasound was performed and showed no evidence of cholecystitis. The appendix was not visualized. No evidence of free peritoneal fluid was apparent. The patient expressed a desire to be discharged due to improvement in symptoms. She was provided with a prescription for metoclopramide for continuing nausea/vomiting at home. She was advised to follow-up with her PCP for further evaluation of her chronic nausea, vomiting, and diarrhea. She was advised on marijuana cessation, as this may be contributing to her chronic symptoms. She was instructedto return to the emergency department should she experience worsening abdominal pain, intractable emesis, worsening diarrhea, fever, chest pain, shortness of breath, loss of consciousness, weakness/dizziness or other concerning symptoms. Clinical Impression Final diagnoses: Non-intractable vomiting with nausea, unspecified vomiting type Generalized abdominal pain Diarrhea, unspecified type Disposition Upon departure from the Emergency Department, the patient's pain seemed to be 0 on a zero to ten scale. Condition at departure from the Emergency Department: Improved Disposition decisions were made weighing risks and benefits of hospitalization vs. outpatient treatment, the risk for further decompensation, and the patient's wishes. Discharged * Tonja Rand RN - 08/04/2020 0705 EST Blood drawn via saline lock per protocol, tiger, blue, red, green and purple tube(s) sent to lab per order. documented in this encounter Plan of Treatment Upcoming Encounters Date Type Department Care Team (Late st Contact Info) Description 02/21/2024 9:45 EDT Office Visit [facility] Adult Primary Care - [address] [id number] Carrington Calderon MD [address] [place] [phone] 02/27/2024 8:30 EDT Telemedicine [facility] Sleep Program - [address] [phone] Rn, Sleep 02/29/2024 10:30 EDT Appointment [facility]iology Nuclear Medicine and PET [address] [id number] 02/29/2024 14:30 EDT Appointment [facility] Nuclear Medicine and PET [address] [phone] 03/01/2024 8:00 EDT Appointment [facility] Nuclear Medicine and PET [address] [id number] 03/01/2024 9:30 EDT Appointment [facility] Nuclear Medicine and PET [address] [phone] documented as of this encounter Procedures Procedure Name Priority Date/Time Associated Diagnosis Comments ECG REPORT - SCANNED 08/06/2020 10:30 EST POCT US ED ABDOMEN STAT 08/04/2020 11 :01 EST HOLD SST Routine 08/04/2020 7:18 EST QUANT BETA HCG, STAT Add-on 08/04/2020 7:18 EST EKG 12-LEAD STAT 08/04/2020 7:08 EST SCREENING GLUCOSE STAT 08/04/2020 7:0 2 EST TROPONIN I STAT 08/04/2020 7:02 EST LACTIC ACID STAT 08/04/2020 7:02 EST COMPLETE BLOOD COUNT AND DIFFERENTIAL STAT 08/04/2020 7:02 EST BUN STAT 08/04/2020 7:02 EST MAGNESIUM STAT 08/04/2020 7:02 EST LIPASE STAT Add-on 08/04/2020 7:02 EST CREATININE STAT 08/04/2020 7:02 EST HEPATIC FUNCTION PANEL (ALB,ALK PHOS,ALT,AST,DBIL,TO T SAL,TOT PROT) STAT Add-on 08/04/2020 7:02 EST ELECTROLYTES STAT 08/04/2020 7:02 EST POCT GLUCOSE, INTERFACED Routine 08/04/2020 6:59 EST documented in this encounter Results * ECG REPORT - SCANNED (08/06/2020 10:30 EST) 08/06/2020 10:3 0 EST Scan 2 Germ Drier PROCEDURE/MINOR BRAULIO GICAL ORDERABLES * POCT US ED ABDOMEN (08/04/2020 11:01 EST) Anatomical Region Laterality Modality Ultrasound 08/04/2020 11:0 5 EST Narrative 08/04/2020 19:[address] [facility] - Ultrasound Exam Date: 08/04/2020 Exam Type: POCT US ED ABDOMEN Lawn Mower Mechanic: Asuncion Telles Attending: Benita Sol MD Worksheet: [id number] (POCT US ED ABDOMEN) Exam Type: ?? Clinically indicated Exam Information: ?? The following spaces were examined as part of the FAST exam: RUQ/Guevara's pouch, LUQ/splenorenal ?? Other views: biliary, RLQ Indication(s) for Exam: ?? The exam was performed with the following indications: Abdominal pain ?? Other Indication(s): Performed under the supervision of Dr. Sol Findings:: ?? Morison's pouch (RUQ): Fluid absent ?? Splenorenal space (LUQ): Fluid absent ?? RLQ: Appendix not visualized ?? Other findings: no evidence of cholelithiasis Interpretation: ?? No pathologic free fluid ?? Acute appendicitis: Indeterminate ?? Other: no evidence cholecystitis Confirmatory study: ?? What confirmatory study was done?: No additional imaging ordered during ED evaluation US POCUS Preliminary Signature: ?? POCUS Preliminary Signature: Signed by Asuncion Telles on Tuesday, August 04, 2020 at 4:51:50 PM Physician Signature: ?? I review and approve of the documentation above.: Signed by Ismael Ji MD on Tuesday, August 04, 2020 at 7:06:36 PM This exam was performed and interpreted by the [facility] ED Staff Procedure Note Ismael Ji MD - 08/04/2020 [facility] - Ultrasound Exam Date: 08/04/2020 Exam Type: POCT US ED ABDOMEN Lawn Mower Mechanic: Asuncion Telles Attending: Benita Sol MD Worksheet: [id number] (POCT US ED ABDOMEN) Exam Type: Clinically indicated Exam Information: The following spaces were examined as part of the FAST exam:RUQ/Guevara's pouch, LUQ/splenorenal Other views: biliary, RLQ Indication(s) for Exam: The exam was performed with the following indications: Abdominal pain Other Indication(s): Performed under the supervision of Dr. Sol Findings:: Morison's pouch (RUQ): Fluid absent Splenorenal space (LUQ): Fluid absent RLQ: Appendix not visualized Other findings: no evidence of cholelithiasis Interpretation: No pathologic free fluid Acute appendicitis: Indeterminate Other: no evidence cholecystitis Confirmatory study: What confirmatory study was done?: No additional imaging ordered duringED evaluation US POCUS Preliminary Signature: POCUS Preliminary Signature: Signed by Asuncion Telles on 2020 at 4:51:50 PM Physician Signature: I review and approve of the documentation above.: Signed by Inder MARTÍNEZ on Tuesday, August 04, 2020 at 7:06:36 PM This exam was performed and interpreted by the [facility] ED Staff Asuncion Telles MD IMG POCT US ORDERABL ES * HOLD SST (08/04/2020 7:18 EST) Hold Hold 08/04/2020 8:32 EST [facility] Blood VENOUS BLOOD / Unknown 08/04/2020 7:18 EST 08/04/2020 7:18 EST Benita Sol MD LAB INFO SERVICE AND SUPPORT & PHONE RESULT Performing Organization Address [facility] de Phone Number [facility] [address] [place] [address] * QUANT BETA HCG, (08/04/2020 7:18 EST) Beta HCG Quant, <5 <5 mIU/ml 08/04/2020 8:58 EST [facility] Comment: NOTE: : Negative: Less than 5mIU/mL Indeterminant: Between 5 and 25 mIU/mL, recommend repeat testing in 48 hours Positive: Greater than 25 mIU/mL The results of this assay can be falsely lowered due to the consumption of Biotin. Blood VENOUS BLOOD / Unknown 08/04/2020 7:18 EST 08/04/2020 7:18 EST Benita Sol MD CHEMISTRY & BLOOD GA S ORDERABLES Performing Organization Address [facility] Co de Phone Number [facility] [address] [place] [address] * EKG 12-LEAD (08/04/2020 7:08 EST) 08/04/2020 7:08 EST Narrative [facility] EKG - 08/06/2020 10:26 EST ?[facility] Emergency ? Test Date: ?2020-08-04 Pat Name: ? CRISTY LUO ?Department: ?? ED ? Room: ? AC16 Gender: ? Female ? Vending Machine Host/Hostess: ?? [id number] : ?1985 ? Requested By: GILDA Forman Order Number: [id number] ? Reading MD: ?? LORI MARY MD ? Measurements Intervals ?Hamer ? Rate: ? 56 ? P: ?4 PA: ? 135 ?QRS: ?14 QRSD: ? 92 ? T: ?7 QT: ? 447 ? QTc: ?433 ? Interpretive Statements SINUS BRADYCARDIA WITH OCCASIONAL SUPRAVENTRICULAR PREMATURE COMPLEXES Compared to ECG 06/13/2020 15:41:07 Sinus rhythm no longer present I reviewed the tracing and have either agreed or edited the findings in this report. Electronically Signed On 08-06-2020 10:26:58 EST by LORI MARY MD. Procedure Note Lori Mary MD - 08/06/2020 [facility] Emergency Test Date: 2020-08-04 Pat Name: CRISTY LUO Department: ED Room: [facility] Gender: Female Vending Machine Host/Hostess: [id number] : 1985 Requested By: GILDA Forman Order Number: [id number] Reading MD: LORI MARY MD Measurements Intervals Hamer Rate: 56 P: 4 PA: 135 QRS: 14 QRSD: 92 T: 7 QT: 447 QTc: 433 Interpretive Statements SINUS BRADYCARDIA WITH OCCASIONAL SUPRAVENTRICULAR PREMATURE COMPLEXES Compared to ECG 06/13/2020 15:41:07 Sinus rhythm no longer present I reviewed the tracing and have either agreed or edited the findings inthis report. Electronically Signed On 08-06-2020 10:26:58 EST by LORI VALLE. Benita Sol MD CARDIAC ECG ORDERABL ES [facility] EKG * LIPASE (08/04/2020 7:02 EST) Lipase 131 <251 U/L 08/04/2020 8:55 [facility] Blood VENOUS BLOOD / Unknown Venipuncture / Unknown 08/04/2020 7:02 EST 08/04/2020 7:05 EST Asuncion Telles MD CHEMISTRY & BLOOD GA S ORDERABLES Performing Organization Address [facility] de Phone Number [facility] [address] [place] [address] * (ABNORMAL) HEPATIC FUNCTION PANEL (ALB,ALK PHOS,ALT,AST,DBIL,TOT SAL,TOT PROT) (08/04/2020 7:02 EST) Total Protein 7.0 6.3 - 8.2 g/dL 08/04/2020 8:55 [facility] Albumin 4.1 3.4 - 4.9 g/dL 08/04/2020 8:55 [facility] Bilirubin, Total <0.5 <1.4 mg/dL 08/05/19 8:55 [facility] Conjugated Bilirubin 0.0 0.0 - 0.3 mg/dL 08/04/2020 8:55 [facility] Unconjugated Bilirubin 0.2 0.0 - 1.1 mg/dL 08/04/2020 8:55 [facility] Alkaline Phosphatase 99 38 - 126 U/L 08/04/2020 8:55 [facility] ALT 16 <35 U/L 08/04/2020 8:55 [facility] AST 62(H) 15 - 46 U/L 08/04/2020 8:55 [facility] Blood VENOUS BLOOD / Unknown Venipuncture / Unknown 08/04/2020 7:02 EST 08/04/2020 7:05 EST Asuncion Telles MD CHEMISTRY & BLOOD GA S ORDERABLES Performing Organization Address [facility]/ZIP Co de Phone Number [facility] [address] [place] [address] * LACTIC ACID (08/04/2020 7:02 EST) Lactic Acid 1.9 <=2.0 mmol/L 08/04/2020 7:31 EST [facility] Blood VENOUS BLOOD / Unknown Venipuncture / Unknown 08/04/2020 7:02 EST 08/04/2020 7:05 EST Andrés Garcia MD CHEMISTRY & BLOOD GA S ORDERABLES Performing Organization Address City/[facility]/ZIP Co de Phone Number [facility] [address] [place] [address] * (ABNORMAL) SCREENING GLUCOSE (08/04/2020 7:02 EST) Glucose, Screening 325(H) 70 - 100 mg/dL 08/04/2020 7:34 EST [facility] Comment:Elevated screening g lucose value greater than 180 mg/dl, please order follow up Hemoglobin A1C. Blood VENOUS BLOOD / Unknown Venipuncture / Unknown 08/04/2020 7:02 EST 08/04/2020 7:05 EST Andrés Garcia MD CHEMISTRY & BLOOD GA S ORDERABLES [facility] [address] [place] [address] * MAGNESIUM (08/04/2020 7:02 EST) Pathologist [facility] Magnesium 1.7 1.7 - 2.8 mg/dL 08/04/2020 7:31 EST [facility] Blood VENOUS BLOOD / Unknown Venipuncture / Unknown 08/04/2020 7:02 EST 08/04/2020 7:05 EST Andrés Garcia MD CHEMISTRY & BLOOD GA S ORDERABLES [facility] [address] [place] [address] * TROPONIN I (08/04/2020 7:02 EST) Troponin I (ng/mL) <0.034 <0.034 ng/mL 08/04/2020 7:43 [facility] Blood VENOUS BLOOD / Unknown Venipuncture / Unknown 08/04/2020 7:02 EST 08/04/2020 7:05 EST Narrative [facility] - 08/04/2020 7:43 EST The results of this assay can be falsely lowered due to the consumption of Biotin. Andrés Garcia MD CHEMISTRY & BLOOD GA S ORDERABLES Performing Organization Address [facility] de Phone Number [facility] [address] [place] [address] * ELECTROLYTES (08/04/2020 7:02 EST) Sodium 138 136 - 145 mEq/L 08/04/2020 7:31 [facility] Potassium 4.1 3.5 - 5.0 mEq/L 08/04/2020 7:31 [facility] Chloride 103 96 - 110 mEq/L 08/04/2020 7:31 [facility] CO2 Total 24 22 - 32 mEq/L 08/04/2020 7:31 [facility] Blood VENOUS BLOOD / Unknown Venipuncture / Unknown 08/04/2020 7:02 EST 08/04/2020 7:05 EST Andrés Garcia MD CHEMISTRY & BLOOD GA S ORDERABLES Performing Organization Address [facility] de Phone Number [facility] [address] [place] [address] * CREATININE (08/04/2020 7:02 EST) Creatinine 0.55 0.52 - 1.04 mg/dL 08/04/2020 7:31 [facility] LABORATORY SERVICES eGFR 122 >60 mL/min/1.7 3m2 08/04/2020 7:31 [facility] Comment:eGFR calculated usin g CKD-EPI equation for non- Americans. Multiply eGFR by 1.16 for patients. Blood VENOUS BLOOD / Unknown Venipuncture / Unknown 08/04/2020 7:02 EST 08/04/2020 7:05 EST Andrés Garcia MD CHEMISTRY & BLOOD GA S ORDERABLES [facility] [address] [place] [address] * BUN (08/04/2020 7:02 EST) BUN 12 10 - 26 mg/dL 08/04/2020 7:31 [facility] Blood VENOUS BLOOD / Unknown Venipuncture / Unknown 08/04/2020 7:02 EST 08/04/2020 7:05 EST Andrés Garcia MD CHEMISTRY & BLOOD GA S ORDERABLES Performing Organization Address City/[facility] Co de Phone Number [facility]OR[facility]ORY [facility] [address] [place] [address] * (ABNORMAL) COMPLETE BLOOD COUNT AND DIFFERENTIAL (08/04/2020 7:02 EST) WBC 16.23(H) 4.00 - 12.40 K/cmm 08/04/2020 7:23 [facility] RBC 4.57 3.86 - 5.04 M/cmm 08/04/2020 7:23 [facility] Hemoglobin 14.1 11.6 - 15.2 gm/dL 08/04/2020 7:23 [facility] HCT 39.2 34.9 - 44.4 % 08/04/2020 7:23 [facility] MCV 86 81 - 98 fl 08/04/2020 7:23 [facility] MCH 30.9 26.7 - 33.3 pg 08/04/2020 7:23 [facility] MCHC 36.0(H) 32.1 - 35.9 gm/dL 08/04/2020 7:23 [facility] RDW-CV 12.1 <14.7 % 08/04/2020 7:23 [facility] RDW-SD 37.6 <50.4 fl 08/04/2020 7:23 [facility] PLT 395(H) 141 - 377 K/cmm 08/04/2020 7:23 [facility] MPV 10.0 9.5 - 12.7 fl 08/04/2020 7:23 [facility] % Neutrophils 70.8 % 08/04/2020 7:23 [facility] % Lymphocytes 20.3 % 08/04/2020 7:23 [facility] % Monocytes 6.0 % 08/04/2020 7:23 [facility] % Eosinophils 1.8 % 08/04/2020 7:23 [facility] % Basophils 0.5 % 08/04/2020 7:23 [facility] % Immature Grans 0.6 % 08/05/19 7:23 [facility] Absolute Neutrophils 11.51(H) 2.20 - 8.85 K/cmm 08/04/2020 7:23 [facility] Absolute Lymphocytes 3.29 1.09 - 3.30 K/cmm 08/04/2020 7:23 [facility] Absolute Monocytes 0.97(H) 0.10 - 0.80 K/cmm 08/04/2020 7:23 [facility] Absolute Eosinophils 0.29 0.03 - 0.61 K/cmm 08/04/2020 7:23 [facility] ABS Basophils 0.08 0.01 - 0.11 K/cmm 08/04/2020 7:23 [facility] Absolute Immature Grans 0.09(H) 0.00 - 0.06 K/cmm 08/04/2020 7:23 [facility] Type of Differential: Auto 08/04/2020 7:23 [facility] Blood VENOUS BLOOD / Unknown Venipuncture / Unknown 08/04/2020 7:02 EST 08/04/2020 7:05 EST Andrés Garcia MD PACKAGES & DNA PROBE ORDERABLES [facility] [address] [place] [address] * (ABNORMAL) POCT GLUCOSE, INTERFACED (08/04/2020 6:59 EST) Glucose, POC 328(H) 70 - 100 mg/dL 08/04/2020 7:02 EST [facility] LABORATORY laundry operator ID [id number] 08/04/2020 7:02 EST [facility] HN LAB POC COMMENT (GLUCOSE) Test Performed by Nursing Services 08/04/2020 7:02 EST [facility] Blood CAPILLARY BLOOD / Unknown 08/04/2020 6:59 EST 08/04/2020 7:02 EST Provider Unknown MD POINT OF CARE TEST O RDERABLES Performing Organization Address City/State/[facility] Co de Phone Number [facility] [address] [place] [address] documented in this encounter Visit Diagnoses Diagnosis Non-intractable vomiting with nausea, unspecified vomiting type- Primary Generalized abdominal pain Abdominal pain, generalized Diarrhea, unspecified type documented in this encounter Administered Medications Inactive Administered Medications - up to 3 most recent administrations Medication Order MAR Action Action Date Dose Rate Site acetaminophen (OFIRMEV) IV solution 1,000 mg 1,000 mg, intravenous, NOW X1, 1 dose, On Tue08/04/20 at 0815, Is the patient NPO? If No, state reason why oral acetaminophen cannot be used in Comment field. No, Is this patient nothing by rectum? If No, state why rectal acetaminophen cannot be used in the Comment field. No, Are NSAIDs contraindicated in this patient? Yes, Is the patient in ED, PACU or ICU? Yes, STAT Given 08/04/2020 9:13 EST 1,000 mg lactated ringers BOLUS 1,000 mL 1,000 mL, intravenous, NOW X1, 1 dose, On Tue08/04/20 at 0730, STAT New Bag 08/04/2020 8:04 EST 1,000 mL LORazepam (ATIVAN) injection 0.5 mg 0.5 mg, intravenous, NOW X1, 1 dose, On Tue08/04/20 at 0800, STAT Given 08/04/2020 8:04 EST 0.5 mg metoclopramide (REGLAN) 5 mg/mL injection 1 dose, Starting on Tue08/04/20 at 0911, Until Tue08/04/20 at 0923 metoclopramide (REGLAN) injection 10 mg 10 mg, intravenous, NOW X1, 1 dose, On Tue08/04/20 at 0915, STAT Given 08/04/2020 9:23 EST 10 mg ondansetron (PF) (ZOFRAN) 4 mg/2 mL injection 1 dose, Starting on Tue08/04/20 at 0711, Until Tue08/04/20 at 0715 ondansetron (PF) (ZOFRAN) injection 4 mg 4 mg, intravenous, NOW X1, 1 dose, On Tue08/04/20 at 0815, STAT Given 08/04/2020 7:15 EST 4 mg documented in this encounter Active and Recently Administered Medications Times are shown in EST. Scheduled Medication Order 08/02/2020 08/03/2020 08/04/2020 acetaminophen (OFIRMEV) IV solution 1,000 mg (COMPLETED) 1,000 mg, intravenous, NOW X1, 1 dose, On Tue08/04/20 at 0815, Is the patient NPO? If No, state reason why oral acetaminophen cannot be used in Comment field. No, Is this patient nothing by rectum? If No, state why rectal acetaminophen cannot be used in the Comment field. No, Are NSAIDs contraindicated in this patient? Yes, Is the patient in ED, PACU or ICU? Yes, STAT 0913 (Given - Provid er: Valencia Red RN) lactated ringers BOLUS 1,000 mL (COMPLETED) 1,000 mL, intravenous, NOW X1, 1 dose, On Tue08/04/20 at 0730, STAT 0804 (New Bag - Prov ider: Valencia Red RN)0959 (Completed - Provider: Valencia Red RN) LORazepam (ATIVAN) injection 0.5 mg (COMPLETED) 0.5 mg, intravenous, NOW X1, 1 dose, On Tue08/04/20 at 0800, STAT 0804 (Given - Provid er: Valencia Red RN) metoclopramide (REGLAN) injection 10 mg (COMPLETED) 10 mg, intravenous, NOW X1, 1 dose, On Tue08/04/20 at 0915, STAT 0923 (Given - Provid er: Valencia Red RN) ondansetron (PF) (ZOFRAN) injection 4 mg (COMPLETED) 4 mg, intravenous, NOW X1, 1 dose, On Tue08/04/20 at 0815, STAT 0715 (Given - Provid er: Valencia Red RN) documented in this encounter Additional Health Concerns Infection Onset Date Last Indicated Resolved Time R/O COVID-19 08/04/2020 08/04/2020 08/04/2020 11:4 0 EST documented as of this encounter
--- OUTSIDE RECORDS SUMMARY | 2023-12-16 00:39 | XMS_ITS | Encounter Summary ---
Author Organization [facility] Address [address] [place] [address] Care Team Providers Care Interactive Media Designer Name Role Phone Unavailable Primary Care Provider Unavailabl e Encounter Details Date Type Department Care Team (Late st Contact Info) Description 06/26/2020 Orders Only [facility] Women's Services - [facility] [address] [place], [place] [phone] Marisa Tony MD [address] [place] [phone] Social History Tobacco Use Types Packs/Day Years [...] needed for Pain. Daily Max: 200 mg 3 Tab 06/26/2020 08/01/2020 documented in this encounter Progress Notes * Marisa Tony MD - 06/26/2020 1706 EST Asked by Gy nurses to call patient who is undergoing expectant management of EPL. She is passing tissue and clots, but is struggling to cope with pain from lower abdominal and lower back cramps. She has hives and questionable anaphylaxis with ibuprofen so is taking tylenol. Reports she is changing a pad every 1.5 hours but not completely saturating the pad. Has emesis when pain is intense but does not have nausea. Is able to tolerate liquids. Denies light headedness, fever, chills Rx sent for tramadol 50mg. Instructed patient to call insurance consultant number if sx worsen. Marisa Tony MD Under Seal Operator PGY-1 Pager [phone] documented in this encounter Plan of Treatment Upcoming Encounters Date Type Department Care Team (Late st Contact Info) Description 02/21/2024 9:45 EDT Office Visit [facility] Adult Primary Care - [address] [phone] Carrington Calderon MD [address] [place] [phone] 02/27/2024 8:30 EDT Telemedicine [facility] Sleep Program - [address] [phone] Rn, Sleep 02/29/2024 10:30 EDT Appointment [facility] Radiology Nuclear Medicine and PET - [address] [id number] 02/29/2024 14:30 EDT Appointment [facility] Radiology Nuclear Medicine and PET - [address] [phone] 03/01/2024 8:00 EDT Appointment [facility] Radiology Nuclear Medicine and PET - [address] [phone] 03/01/2024 9:30 EDT Appointment [facility] Radiology Nuclear Medicine and PET - [address] [id number] documented as of this encounter Visit Diagnoses Not on filedocumented in this encounter
--- OUTSIDE RECORDS SUMMARY | 2023-12-16 00:39 | XMS_ITS | Encounter Summary ---
Author Organization [facility] Address [address] [place] [address] Care Team Providers Care Tribal Council Member Name Role Phone Unavailable Primary Care Provider Unavailabl e Reason for Visit * Reason Comments Foot Problem Encounter Details Date Type Department Care Team (Latest Contact Info) Description 07/02/2020 14:30 EST Office Visit [facility] Foot & Ankle Program - [address] [address] Elza Navarro DPM [address] [place] [phone] Osteomyelitis of left foot, unspecified type ([facility]) (Primary Dx); Type 2 diabetes mellitus with diabetic polyneuropathy, with long-term current use of insulin ([facility]) Social History Tobacco Use Types Packs/Day Years [...] as of this encounter Progress Notes * Elza Navarro, DPM - 07/02/2020 1430 EST HPI: Cristy Luo is a 35 y.o. female patient who presents for follow up 2 weeks status post left great toe amputation. She reports that she has been doing well. She has been keeping the dressing clean and dry. She has been wearing the surgical shoe and elevating her foot. Occasional phantom pain in the amputation site, though this is improving. Overall pain has improved. Overall she is feeling well today and denies nausea, vomiting, fever, chills. Did have some recent nausea due to her , but reports that this is getting better. Review of Systems A ten point review of systems was performed. Pertinent positives are listed below, all others are negative. Vital signs: vitals were not taken for this visit. PHYSICAL EXAM: General: AO x 3, NAD Lower extremity: LLE: Palpable pedal pulses. Skin temperature gradient within normal limits. Capillary filling time less than 3 seconds to all toes. Status post left great toe amputation. Sutures intact in place. Skin well coapted. Very minimal postoperative edema. No erythema. No drainage, malodor, necrosis. No pain on palpation. Gross protective sensation diminished to the forefoot. ASSESSMENT: 1. Osteomyelitis of left foot, unspecified type ([facility]) 2. Type 2 diabetes mellitus with diabetic polyneuropathy, with long-term current use of insulin ([facility]) No orders of the defined types were placed in this encounter. PLAN: Ms. Luo presents today for follow-up 2 weeks status post left great toe amputation. This has healed well. Sutures were removed today. No signs of infection. She can start showering tomorrow. She isgoing to continue the surgical shoe through the end of the week then can start transitioning into a sneaker over the weekend. She can slowly start increasing her activity. We discussed types of shoesto wear-shoes with a wide toe box and good support. I wrote her a note to return to work on 07/14. I am going to see her back in 3 months for diabetic foot care. She knows to call before then if any problems arise and is happy with this plan. Portions of this document have been prepared with speech recognition software or keyboard data assistant techniques. Minor irregularities or keyboarding misprints may be present documented in this encounter Plan of Treatment Upcoming Encounters Date Type Department Care Team (Late st Contact Info) Description 02/21/2024 9:45 EDT Office Visit [facility] Adult Primary Care - [address] [phone] Carrington Calderon MD 1 [facility] Level [address] [place] [phone] 02/27/2024 8:30 EDT Telemedicine [facility] Sleep Program - [address] [place] [address] Rn, Sleep 02/29/2024 10:30 EDT Appointment [facility] Radiology Nuclear Medicine and PET - [address] [address] 02/29/2024 14:30 EDT Appointment [facility] Radiology Nuclear Medicine and PET - [address] [address] 03/01/2024 8:00 EDT Appointment [facility] Radiology Nuclear Medicine and PET - [address] [phone] 03/01/2024 9:30 EDT Appointment [facility] Radiology Nuclear Medicine and PET - [address] [phone] documented as of this encounter Visit Diagnoses Diagnosis Osteomyelitis of left foot, unspecified type ([facility])- Primary Type 2 diabetes mellitus with diabetic polyneuropathy, with long-term current use of insulin ([facility]) documented in this encounter
--- OUTSIDE RECORDS SUMMARY | 2023-12-16 00:39 | XMS_ITS | Encounter Summary ---
Author Organization [facility] Address [address] [place] [address] Care Team Providers Care Speeder Worker Name Role Phone Unavailable Primary Care Provider Unavailabl e Encounter Details Date Type Department Care Team (Late st Contact Info) Description 07/02/2020 Orders Only [facility] Endocrinology - [facility] [address] [place] [address] Sara Zafar, GUSTAVO [address] [facility] [address] [place] [phone] Type 2 diabetes mellitus with hyperglycemia, with long-term current use of insulin ([facility]) (Primary Dx) Social History Tobacco Use [...] Description 02/21/2024 9:45 EDT Office Visit [facility] Adult Primary Care - [address] [phone] Carrington Calderon MD 1 [facility] [address] [place] [phone] 02/27/2024 8:30 EDT Telemedicine [facility] Sleep Program - [address] [phone] Rn, Sleep 02/29/2024 10:30 EDT Appointment [facility] Radiology Nuclear Medicine and PET - [address] [address] 02/29/2024 14:30 ED[facility] Medicine and PET - [address] [id number] 03/01/2024 8:00 EDT Appointment [facility] Radiology Nuclear Medicine and PET - [address] [address] 03/01/2024 9:30 EDT Appointment [facility] Radiology Nuclear Medicine and PET - [address] [phone] documented as of this encounter Visit Diagnoses Diagnosis Type 2 diabetes mellitus with hyperglycemia, with long-term current use of insulin ([facility])- Primary documented in this encounter
--- OUTSIDE RECORDS SUMMARY | 2023-12-16 00:39 | XMS_ITS | Encounter Summary ---
Author Organization [facility] Address [address] [place] [address] Care Team Providers Care Acid Tank Cleaner Name Role Phone Unavailable Primary Care Provider Unavailabl e Reason for Visit * Reason Comments Follow-up Encounter Details Date Type Department Care Team (Latest Contact Info) Description 08/01/2020 15:00 EST Office Visit [facility] Adult Primary Care - [address] [address] Tonja Alejandro PA-C [address] [place] [address] [place] [phone] Musculoskeletal pain (Primary Dx); Type 2 diabetes mellitus with hyperosmolarity without coma, with long-term current use of insulin ([facility]); Neuropathy; Depression, unspecified depression type; Chronic bilateral thoracic back pain; Lumbar pain [...] 10:21 EST documented as of this encounter Last Filed Vital Signs Vital Sign Reading Time Taken Comments Blood Pressure 122/82 08/01/2020 1455 EST Pulse 68 08/01/2020 1455 EST Temperature 36.2 ??C (97.2 ??F) 08/01/2020 1455 EST Respiratory Rate 18 08/01/2020 1455 EST Oxygen Saturation - - Inhaled Oxygen Concentration - - Weight 90.8 kg (200 lb 4 oz) 08/01/2020 1455 EST Height - - Body Mass Index 33.36 06/23/2020 0821 EST documented in this encounter Functional Status [...] Dispensed Refills Start Date End Da te TENS unit and electrodes combo pack 1 Each by misc (non-drug; combo route) route daily. 1 Each 08/01/2020 05/21/2022 TENS unit and electrodes combo pack 1 Each by misc (non-drug; combo route) route daily. 1 Each 08/01/2020 08/01/2020 gabapentin (NEURONTIN) 300 mg capsule Take 1 Cap by mouth 3 times daily. 90 Cap 2 08/01/2020 10/22/2020 documented in this encounter Progress Notes * Tonja Alejandro PA-C - 08/01/2020 1500 EST Internal Medicine Primary Care Follow up Service Date: 08/01/2020 CC: follow up This presents for follow-up on a couple different things. 1. Patient recently had a left toe amputation due to osteomyelitis. This was done by Dr. Elza Navarro. Patient has been doing well with this aspect. She is no longer on antibiotics. She does occasionally get some phantom pain and also has ongoing neuropathy due to her diabetes. She is on gabapentin 100 mg in the a.m., 100 mg in the afternoon, and 200 mg at bedtime. 2. Patient is a type II diabetic. She is currently taking NovoLog 9 units at mealtimes 3 times a day and 40 units of Lantus. She is working with endocrinology and it is recommended that she have a continuous glucose monitor. She tells me that her fasting glucose have been 280 in the morning. Her last A1c was 9.7. She has been trying really hard with nutrition. She wants to try to get her A1c downso she can have surgery next month. 3. In regards with nutrition, she has been having some issues eating. She says very often she will start eating and feel very full quickly. On top of this, she will feel very sick when she eats. She denies any concerns for ulcers as she denies any NSAID or ibuprofen use. She denies any alcohol use.She denies any black or tarry stools. 4. She would like to get in touch with a therapist. 5. She also reports chronic thoracic and low back pain. She is not sure if this is due to the weight in her front abdomen due to extra skin from the weight loss she had previously. She does have painin the thoracic area that wraps around to her chest. She also has pain in the low back that radiates to her right hip. 6. Recent miscarriage. Patient reports that she recently had a miscarriage about a month ago. Unfortunately, this is the patient's eighth miscarriage. She has been following up with LICENSED MASTER SOCIAL WORKER and is ultimately scheduled for hysterectomy. This is one of her top priority is as she feels that her qualityof life would be much better. She is not able to do control. She is scheduled next month for h ysterectomy although this has been rescheduled a couple times due to her uncontrolled diabetes. Past Medical and Surgical History, Family History, Social History, Problem list, Medication list and Allergies were reviewed in [facility] and updated as appropriate. Vitals BP 122/82 Pulse 68 Temp 36.2 ??C (97.2 ??F) (Tympanic) Resp 18 Wt 90.8 kg (200 lb 4 oz) BMI 33.36 kg/m?? General: Alert, cooperative, no distress Head: normocephalic, without obvious abnormality Eyes: PERRL, EOMS intact Neck: supple, trachea midline, no adenopathy, thyroid: no enlargement, tenderness, or nodules Respiratory: lungs are clear to auscultation bilaterally. Cardiovascular: regular rate and rhythm, S1, S2 normal, no murmurs, rubs or gallops. Gastrointestinal: positive bowel sounds, non-tender, non-distended, no hepatosplenomegaly or massesappreciated Skin: There are no concerning rashes or abnormal skin findings. Neuro: alert and oriented x 3, normal gait, CNII-XII intact, normal strength, sensation, and reflexes throughout Musculoskeletal: + paraspinal muscle tenderness Extremities: No peripheral edema. Psychological: well groomed, communicating fluently, alert, good eye contact. No cognitive distortions. Normal mood, normal affect, no evidence of hallucinations or delusions. Recent Labs/Imaging were reviewed in the EMR. A/P Type 2 diabetes -We will contact endocrinology for further recommendations -Consider increasing her Lantus by 2 units every 3 days to try to bring her fasting glucose down toaround 130. -Encouraged exercise and healthy eating -Continue to follow-up with a translation director History of multiple miscarriages -Continue follow-up with EXTRACTIONS TECHNOLOGIST -Plan for hysterectomy next month Left toe amputation/neuropathy -Increase gabapentin to 300 mg 3 times daily -Continue follow-up with podiatry Abdominal discomfort -Symptoms are consistent with gastroparesis. -We will try gastroparesis diet. Some recommendations include eating 5-6 small meals per day and avoiding certain foods. We will see if this helps her symptoms. She has no risk factors for peptic ulcer disease. Depression -Due to multiple life events and health, patient is interested in seeing a social sciences research scientist. Will order this. Chronic back pain -Start with x-rays of thoracic and lumbar spine. -Consider MRI of thoracic spine/lumbar spine due to radicular pain Will call patient on Tuesday for further insulin instructions. Tonja Alejandro [facility]-C [facility]01/2020 16:34 I spent a total of 30 minutes [...] Description 02/21/2024 9:45 EDT Office Visit [facility] Adult Primary Care - [address] [phone] Carrington Calderon MD [address] [place] [phone] 02/27/2024 8:30 EDT Telemedicine [facility] Sleep Program - [address] [address] Rn, Sleep 02/29/2024 10:30 EDT Appointment [facility] Radiology Nuclear Medicine and PET - [address] [phone] 02/29/2024 14:30 EDT Appointment [facility] Radiology Nuclear Medicine and PET - [address] [address] 03/01/2024 8:00 EDT Appointment [facility] Radiology Nuclear Medicine and PET [address] [address] 03/01/2024 9:30 EDT Appointment [facility] Radiology Nuclear Medicine and PET - [address] [address] documented as of this encounter Visit Diagnoses Diagnosis Musculoskeletal pain- Primary Mylagia and myositis, unspecified Type 2 diabetes mellitus with hyperosmolarity without coma, with long-term current use of insulin ([facility]) Neuropathy Mononeuritis of unspecified site Depression, unspecified depression type Chronic bilateral thoracic back pain Lumbar pain Lumbago documented in this encounter Discontinued Medications Medication Sig Discontinue Reason Start Date End Da te gabapentin (NEURONTIN) 100 mg capsule Take 1 Cap by mouth 3 times daily. 1 tab AM, noon, 3 tabs in fiordaliza Therapy completed 06/05/2020 08/01/2020 ondansetron (ZOFRAN) 4 mg tablet Take 1 Tab by mouth every 8 hours as needed for Nausea. Therapy completed 06/25/2020 08/01/2020 traMADol (ULTRAM) 50 mg tablet Take 1 Tab by mouth every 6 hours as needed for Pain. Daily Max: 200 mg Therapy completed 06/26/2020 08/01/2020 TENS unit and electrodes combo pack 1 Each by misc (non-drug; combo route) route daily. 08/01/2020 08/01/2020 documented as of this encounter
--- OUTSIDE RECORDS SUMMARY | 2023-12-16 00:39 | XMS_ITS | Encounter Summary ---
Author Organization [facility] Address [address] [place] [address] Care Team Providers Care Electronic Component Processor Name Role Phone Unavailable Primary Care Provider Unavailabl e Reason for Visit * Reason Onset Date Comments Follow-up 06/27/2020 Encounter Details Date Type Department Care Team (Late st Contact Info) Description 06/27/2020 Telephone [facility] Women's Services [facility] [address] [place] [address] Susana Tomlinson, RN Follow-up Social History Tobacco Use Types Packs/Day [...] encounter Miscellaneous Notes * Telephone Encounter - Susana Tomlinson RN - 06/27/2020 0917 EST Spoke with Stella: feeling better, used Tramadol 730-8pm last night & again at 2am, does not thinkshe will need to use the 3rd tramadol, may use tylenol if needed. She passed more tissue, pain is better, now with mild back pain & mild cramping, feels pressure lower in pelvis & vagina, thinks this is because she will soon pass more clots/tissue. Home UPT was negative this am---> advised loss complete, likely no further f/u needed,will review with MD team & I will call if they think otherwise. Stella reports spoke with PCP who placed a MH referral for emotional support. She said she is aware ofprecautions. Encouraged to call with any questions or concerns. documented in this encounter Plan of Treatment Upcoming Encounters Date Type Department Care Team (Late st Contact Info) Description 02/21/2024 9:45 EDT Office Visit [facility] Adult Primary Care - [address] [address] Carrington Calderon MD 1 [facility] [address] [place] [phone] 02/27/2024 8:30 EDT Telemedicine [facility] Sleep Program - [address] [phone] Rn, Sleep 02/29/2024 10:30 EDT Appointment [facility] Radiology Nuclear Medicine and PET - [address] [phone] 02/29/2024 14:30 EDT Appointment [facility] Radiology Nuclear Medicine and PET - [address] [phone] 03/01/2024 8:00 EDT Appointment [facility] Radiology Nuclear Medicine and PET - [address] [phone] 03/01/2024 9:30 EDT Appointment [facility] Radiology Nuclear Medicine and PET - [address] [phone] documented as of this encounter Visit Diagnoses Not on filedocumented in this encounter
--- OUTSIDE RECORDS SUMMARY | 2023-12-16 00:39 | XMS_ITS | Encounter Summary ---
Author Organization [facility] Address [address] [place] [address] Care Team Providers Care Bread Wrapper Name Role Phone Unavailable Primary Care Provider Unavailabl e Encounter Details Date Type Department Care Team (Latest Contact Info) Description 06/25/2020 Travel Social History Tobacco Use Types Packs/Day [...] Description 02/21/2024 9:45 EDT Office Visit [facility] Adult Primary Care - [address] [address]231 Carrington Calderon MD [address] [place] [phone] 02/27/2024 8:30 EDT Telemedicine [facility] Sleep Program - [address] [address] Rn, Sleep 02/29/2024 10:30 EDT Appointment [facility] Radiology Nuclear Medicine and PET - [address] [phone] 02/29/2024 14:30 EDT Appointment [facility] Radiology Nuclear Medicine and PET - [address] [phone] 03/01/2024 8:00 EDT Appointment [facility] Radiology Nuclear Medicine and PET [address] [phone] 03/01/2024 9:30 EDT Appointment [facility] Radiology Nuclear Medicine and PET - [address] [address] documented as of this encounter Visit Diagnoses Not on filedocumented in this encounter
--- OUTSIDE RECORDS SUMMARY | 2023-12-16 00:39 | XMS_ITS | Encounter Summary ---
Author Organization [facility] Address [address] [place] [address] Care Team Providers Care Statistics Teacher Name Role Phone Unavailable Primary Care Provider Unavailabl e Encounter Details Date Type Department Care Team (Latest Contact Info) Description 06/21/2020 Travel Social History Tobacco Use Types Packs/Day [...] Info) Description 02/21/2024 9:45 EDT Office Visit [facility] Adult Primary Care - [address] [address] Carrington Calderon MD [address] [place] [phone] 02/27/2024 8:30 EDT Telemedicine [facility] Sleep Program - [address] [address] Rn, Sleep 02/29/2024 10:30 EDT Appointment [facility] Radiology Nuclear Medicine and PET - [address] [phone] 02/29/2024 14:30 EDT Appointment [facility] Radiology Nuclear Medicine and PET - [address] [id number] 03/01/2024 8:00 EDT Appointment [facility] Radiology Nuclear Medicine and PET [address] [phone] 03/01/2024 9:30 EDT Appointment [facility] Radiology Nuclear Medicine and PET - [address] [address] documented as of this encounter Visit Diagnoses Not on filedocumented in this encounter
--- OUTSIDE RECORDS SUMMARY | 2023-12-16 00:39 | XMS_ITS | Encounter Summary ---
Author Organization [facility] Address [address] [place] [address] Care Team Providers Care Clinical Abstractor Name Role Phone Unavailable Primary Care Provider Unavailabl e Reason for Visit * Reason Onset Date Comments Appointment Related 07/30/2020 Encounter Details Date Type Department Care Team (Late st Contact Info) Description 07/30/[address] [facility] Women's Services [facility] [address] [place], [place] [address] Nimisha Bay MD 2 [facility] Medical Office Building, [address] [place] [phone] Appointment Related Social History Tobacco Use Types [...] encounter Miscellaneous Notes * Telephone Encounter - Rosa Salazar RN - 07/30/2020 1110 EST Call to patient w/ results. Discussed she should reach out to her PCP, she has an appointment laterthis week. * Telephone Encounter - Peyton Hatch - 07/30/2020 0922 EST PT called looking for lab results from yesterday 07/29. Surgery with Shanique on 08/20. documented in this encounter Plan of Treatment Upcoming Encounters Date Type Department Care Team (Late st Contact Info) Description 02/21/2024 9:[address] [facility] Adult Primary Care - [address] [phone] Carrington Calderon MD [address] [phone] 02/27/2024 8:[address] [facility] Sleep Program - [address] [address] Rn, Sleep 02/29/2024 10:30 EDT Appointment [facility] Radiology Nuclear Medicine and PET - [address] [phone] 02/29/2024 14:30 EDT Appointment [facility] Radiology Nuclear Medicine and PET [address] [phone] 03/01/2024 8:00 EDT Appointment [facility] Radiology Nuclear Medicine and PET - [address] [phone] 03/01/2024 9:30 EDT Appointment [facility] Radiology Nuclear Medicine and PET [address] [phone] documented as of this encounter Visit Diagnoses Not on filedocumented in this encounter
--- OUTSIDE RECORDS SUMMARY | 2023-12-16 00:39 | XMS_ITS | Encounter Summary ---
Author Organization [facility] Address [address] [place] [address] Care Team Providers Care Hat Liner Name Role Phone Unavailable Primary Care Provider Unavailabl e Reason for Visit * Reason Onset Date Comments COVID-19 06/30/2020 Encounter Details Date Type Department Care Team (Late st Contact Info) Description 06/30/2020 Orders Only [facility] Women's Services [address] [address] Susana Tomlinson, RN Sterilization (Primary Dx) Social History Tobacco Use Types [...] as of this encounter Progress Notes * Susana Tomlinson, RN - 06/30/2020 1550 EST COVID screening ordered for Sterilization on 08/20/[address] Flynn. documented in this encounter Plan of Treatment Upcoming Encounters Date Type Department Care Team (Late st Contact Info) Description 02/21/2024 9:45 EDT Office Visit [facility] Adult Primary Care - [address] [phone] Carrington Calderon MD [address] [phone] 02/27/2024 8:30 EDT Telemedicine [facility] Sleep Program - [address] [address] Rn, Sleep 02/29/2024 10:30 ED[facility] Medicine and PET - [address] [address] 02/29/2024 14:30 EDT [facility] Nuclear Medicine and PET [address] [address] 03/01/2024 8:00 EDT [facility] Nuclear Medicine and PET - [address] [address] 03/01/2024 9:30 EDT Appointment [facility] Nuclear Medicine and PET [address] [address] documented as of this encounter Visit Diagnoses Diagnosis Sterilization- Primary documented in this encounter
--- OUTSIDE RECORDS SUMMARY | 2023-12-16 00:39 | XMS_ITS | Encounter Summary ---
Author Organization [facility] Address [address] [place] [address] Care Team Providers Care Surgical Instrument Mechanic Name Role Phone Unavailable Primary Care Provider Unavailabl e Reason for Referral * AUTO BODY STRAIGHTENER (Routine) - Specialty Report Received Specialty Diagnoses / Procedures Referred By Annetteac t Referred To Contact Diagnoses of unknown anatomic location Procedures US OB FIRST TRIMESTER (LESS THAN 14 WEEKS) TRANSVAGINAL Charu Flynn MD [address] [place] [phone] Referral ID Status Reason Start Date Expiration Date V isits Requested Visits Authorized [id number] Specialty Report Received 06/20/2020 1 1 Reason for Visit * AUTO BODY STRAIGHTENER (Routine) - Specialty Report Received Specialty Diagnoses / Procedures Referred By Contac t Referred To Contact Diagnoses of unknown anatomic location Procedures US OB FIRST TRIMESTER (LESS THAN 14 WEEKS) TRANSVAGINAL Charu Flynn MD [address] [phone] Referral ID Status Reason Start Date Expiration Date V isits Requested Visits Authorized [id number] Specialty Report Received 06/20/2020 1 1 Encounter Details Date Type Department Care Team (Latest Contact Info) Description 06/25/2020 10:51 EST - 06/25/2020 23:59 EST Hospital Encounter [facility] Women's Services - [address] [address] of unknown anatomic location Discharge Disposition: Home or Self Care Social [...] Sig Dispensed Refills Start Date End Date blood glucose meter One Touch Verio Flex meter. 1 Each 10/04/2019 12/21/2021 blood glucose test strips One Touch Verio IQ or other brand compatible with meter and covered by patient's insurance. Testing QID. 100 Each 5 10/01/2019 08/11/2020 gabapentin (NEURONTIN) 100 mg capsule Take 1 Cap by mouth 3 times daily. 1 tab AM, noon, 3 tabs in fiordaliza 400 Cap 06/05/2020 08/01/2020 insulin aspart U-100 (NOVOLOG FLEXPEN) 100 unit/mL [...] each day. 14 Patch 06/13/2020 03/27/2021 ondansetron (ZOFRAN) 4 mg tablet Take 1 Tab by mouth every 8 hours as needed for Nausea. 8 Tab 06/25/2020 08/01/2020 documented as of this encounter Discharge Disposition Disposition Code Departure Means Destination Home or Self Care documented in this encounter Plan of Treatment Upcoming Encounters Date Type Department Care Team (Late st Contact Info) Description 02/21/2024 9:45 EDT Office Visit [facility] Adult Primary Care [facility] [address] [place], [place] [phone] Carrington Calderon MD [address] [place] [address] 1 [place] [phone] 02/27/2024 8:30 EDT Telemedicine [facility] Sleep Program - [address] [address] Rn, Sleep 02/29/2024 10:30 [facility] - [address] [address] 02/29/2024 14:30 EDT Appointment [facility] Radiology Nuclear Medicine and PET [address] [phone] 03/01/2024 8:00 EDT Appointment [facility] Radiology Nuclear Medicine and PET [address] [phone] 03/01/2024 9:30 EDT Appointment [facility] Radiology Nuclear Medicine and PET [address] [address] documented as of this encounter Procedures Procedure Name Priority Date/Time Associated Diagnosis Comments US OB FIRST TRIMESTER (LESS THAN 14 WEEKS) TRANSVAGINAL Routine 06/25/2020 11:01 EST of unknown anatomic location documented in this encounter Results * US OB FIRST TRIMESTER (LESS THAN 14 WEEKS) TRANSVAGINAL (06/25/2020 11:01 EST) Anatomical Region Laterality Modality Pelvis Ultrasound 06/25/2020 8:47 EST Narrative 06/25/2020 11:58 EST Indication Heavy vaginal bleeding with of unknown location. Falling HCGs. History ======= General History Height 163 cm Height (ft) ?5 ft Height (in) ?4 in Previous Outcomes ?8 Para ?? 0 Hopkins children born (T) ?0 [facility] children born (P) ?0 Abortions (A) ??7 [facility] living children (L) ??0 Maternal Assessment Height 163 cm Height (ft) ?5 ft Height (in) ?4 in Physical Exam Initial weight 91 kg Initial weight (lb) ?200 lb Initial BMI ?34.33 kg/m?? Number of gestational sacs: 1. Dating ======= LMP on: ?05/06/2020 Cycle: regular cycle GA by LMP ??7 w + 1 d IVAN by LMP : ? 02/10/2021 Method of dating: ??Restore dating from previous exam Previous dating: ?? Dating performed on 06/20/2020 Based on the LMP Assigned GA of previous dating 7 w + 1 d Agreed IVAN of previous datin02/10/2021 Assigned: ??Dating performed on 06/20/2020, based on the LMP Assigned GA ?7 w + 1 d Assigned IVAN: ??02/10/2021 Assessment Gestational sac: Not visualized. Location: Uncertain. Maternal Structures Uterus / Cervix Uterus: ?Appears normal Uterus position: ?? Anteverted Uterus other findings: Area of echogenic and heterogenous material within the uterine cavity which is consistent with material which is being passed. This material is now in the upper cavity and no longer in the angle toward the interstitium. Cervix: ?Appears normal Cervix details: ?Normal with Nabothian cysts Ovaries / Tubes / Adnexa Rt ovary: ??Normal with Corpus luteum Rt ovary morphology: ?? Normal physiologic changes Rt ovary D1 ?3.5 cm Rt ovary D2 ?1.5 cm Rt ovary D3 ?2.1 cm Rt ovary mean ??2.4 cm Rt ovary vol ?? 5.9 cm cubed Lt ovary: ??Visualized, normal appearance Lt ovary morphology: ?? normal physiologic changes Lt ovary D1 ?2.1 cm Lt ovary D2 ?1.5 cm Lt ovary D3 ?2.0 cm Lt ovary mean ??1.9 cm Lt ovary vol ?? 3.2 cm cubed Pouch of Nicola / Other Structures Cul de Sac: ?Appears normal Free fluid: ?No free fluid visualized Method ======== Transvaginal ultrasound examination, probe # 8. View: Sufficient. Impression OB Transvaginal - 31623. 1. of unknown location with findings that [...] to today's ultrasound. DATE OF SERVICE: 06/25/2020 Procedure Note Ana Coronado MD - 06/25/2020 Indication Heavy vaginal bleeding with of unknown [...] findings: Area of echogenic and heterogenous material withinthe uterine cavity which is consistent with material which isbeing passed. This material is now in the upper cavity and no longer inthe angle toward the interstitium. Cervix: Appears normal [...] 8. View: Sufficient. Impression OB Transvaginal - [id number]. 1. of unknown location with findings that are highly suggestiveof a failed intrauterine which appears to be passing. There isan area of echogenic and heterogenous material within the uterine cavitywhich is consistent with material which is being passed. Thismaterial is now in the upper cavity and no longer in the angle toward theinterstitium. 2. Both ovaries are normal with corpus luteum on the right. 3. No free fluid in cul de sac. Follow-up see office note. Comment ========= O36.80X0 of unknown anatomic location. Ultrasound findingsdiscussed w/patient. Prior ultrasounds reviewed and compared to today'sultrasound. DATE OF SERVICE: 06/25/2020 Charu Flynn MD IMG US OB ORDERA BLES documented in this encounter Visit Diagnoses Diagnosis of unknown anatomic location state, incidental documented in this encounter
--- OUTSIDE RECORDS SUMMARY | 2023-12-16 00:39 | XMS_ITS | Encounter Summary ---
Author Organization [facility] Address [address] [place] [address] Care Team Providers Care Reception Name Role Phone Unavailable Primary Care Provider Unavailabl e Encounter Details Date Type Department Care Team (Latest Contact Info) Description 07/28/2020 Travel Social History Tobacco Use Types Packs/Day [...] Info) Description 02/21/2024 9:45 EDT Office Visit [facility] Adult Primary Care - [address] [phone] Carrington Calderon MD [address] [place] [phone] 02/27/2024 8:30 EDT Telemedicine [facility] Sleep Program - [address] [address] Rn, Sleep 02/29/2024 10:[address] [facility] Radiology Nuclear Medicine and PET - [address] [phone] 02/29/2024 14:[address] [facility] Radiology Nuclear Medicine and PET - [address] [phone] 03/01/2024 8:[address] [facility] Radiology Nuclear Medicine and PET - [address] [phone] 03/01/2024 9:30 EDT Appointment [facility] Radiology Nuclear Medicine and PET - [address] [address] documented as of this encounter Visit Diagnoses Not on filedocumented in this encounter
--- OUTSIDE RECORDS SUMMARY | 2023-12-16 00:39 | XMS_ITS | Encounter Summary ---
Author Organization [facility] Address [address] [place] [address] Care Team Providers Care Job Placement Officer Name Role Phone Unavailable Primary Care Provider Unavailabl e Reason for Visit * Reason Onset Date Comments Follow-up 06/25/2020 Encounter Details Date Type Department Care Team (Late st Contact Info) Description 06/25/2020 Telephone [facility] Women's Services [facility] [address] [place], [place] [phone] Susana Tomlinson, RN Follow-up Social History Tobacco [...] Telephone Encounter - Susana Tomlinson RN - 06/25/2020 1248 EST Spoke with Stella: advised HCG result today = 49, down from 111 on 06/23, is resolving, reviewed HCG & U/S results with MD team: plan is home UPT on Tuesday (first void of the morning) &call us with results, if positive then will repeat HCG. She reports she signed consent to tubal this am. When I asked how she & were doing emotionally, as this is her 9th loss, she said it is emotional & it doesn't get any easier. Reviewed EPL support at our clinic: [facility] specializes in EPL & MH. She said she & PCP have discussed locating her a counselor & will discuss this again with PCP in near future. Encouraged her to call if she thinks would like to meet with our clinic staff. Stella voices understanding and is agreeable to this plan. No further questions or concerns at this time. documented in this encounter Plan of Treatment Upcoming Encounters Date Type Department Care Team (Late st Contact Info) Description 02/21/2024 9:45 EDT Office Visit [facility] Adult Primary Care - [address] [address] Carrington Calderon MD [address] [place] [phone] 02/27/2024 8:30 EDT Telemedicine [facility] Sleep Program - [address] [phone] Rn, Sleep 02/29/2024 10:30 EDT Appointment [facility] Radiology Nuclear Medicine and PET - [address] [phone] 02/29/2024 14:30 EDT Appointment [facility] Radiology Nuclear Medicine and PET - [address] [phone] 03/01/2024 8:00 EDT Appointment [facility] Radiology Nuclear Medicine and PET [address] [phone] 03/01/2024 9:30 EDT Appointment [facility] Radiology Nuclear Medicine and PET [address] [phone] documented as of this encounter Visit Diagnoses Not on filedocumented in this encounter
--- OUTSIDE RECORDS SUMMARY | 2023-12-16 00:39 | XMS_ITS | Encounter Summary ---
Author Organization [facility] Address [address] [place] [address] Care Team Providers Care Nutritional Assistant Name Role Phone Unavailable Primary Care Provider Unavailabl e Reason for Visit * Reason Comments Pre-op Exam Encounter Details Date Type Department Care Team (Late st Contact Info) Description 07/28/2020 10:30 EST Office Visit [facility] Women's Services - [facility] [address] [place] [address] Fernanda Egan, DO [address] [place] [phone] Encounter for sterilization (Primary Dx) Social History Tobacco Use Types [...] Sign Reading Time Taken Comments Blood Pressure 114/68 07/28/2020 1022 EST Pulse - - Temperature - - Respiratory Rate - - Oxygen Saturation - - Inhaled Oxygen Concentration - - Weight 92.5 kg (204 lb) 07/28/2020 1022 EST Height - - Body Mass Index 33.99 06/23/2020 0821 EST documented in this encounter [...] as of this encounter Progress Notes * Fernanda Egan MD - 07/28/2020 1030 EST COGS Pre-Op H+P Subjective: HPI: Cristy [...] Egan D.O. 07/28/2020 11:05 Obstetrics/Gynecology PGY-1 Pager #[phone] * Whit Rae MD - 07/28/2020 1030 EST Attestation statement: I discussed the patient with the resident at the time of the visit. I agree with the findings and the plan of care documented in the resident's note. Whit Rae MD 10/28/2020 18:45 documented in this encounter Plan of Treatment Upcoming Encounters Date Type Department Care Team (Late st Contact Info) Description 02/21/2024 9:45 EDT Office Visit [facility] Adult Primary Care - [address] [phone] Carrington Calderon MD [address] [phone] 02/27/2024 8:30 EDT Telemedicine [facility] Sleep Program - [address] [phone] Rn, Sleep 02/29/2024 10:30 EDT Appointment [facility] Radiology Nuclear Medicine and PET [address] [address] 02/29/2024 14:30 EDT Appointment [facility] Radiology Nuclear Medicine and PET [address] [address] 03/01/2024 8:00 EDT Appointment [facility] Radiology Nuclear Medicine and [address] [address] 03/01/2024 9:30 EDT Appointment [facility] Nuclear [facility] and [address] [address] documented as of this encounter Procedures Procedure Name Priority Date/Time Associated Diagnosis Comments HEMOGLOBIN A1C Routine 07/28/2020 11:25 EST Encounter for sterilization documented in this encounter Results * (ABNORMAL) SCREENING GLUCOSE (07/28/2020 11:25 EST) Glucose, Screening 260(H) 70 - 100 mg/dL 07/28/2020 12:39 EST [facility] Comment:Elevated screening g lucose value greater than 180 mg/dl, please order follow up Hemoglobin A1C. Blood VENOUS BLOOD / Unknown Venipuncture / Unknown 07/28/2020 11:25 EST 07/28/2020 12:04 EST Whit Rae MD CHEMISTRY & BLOOD GA S ORDERABLES [facility] [address] [place] [address] * (ABNORMAL) HEMOGLOBIN A1C (07/28/2020 11:25 EST) Hemoglobin A1c 9.7(H) <5.7 % 07/28/2020 14:20 EST [facility] Comment: Glycemic Status References: Normal: ??<5.7% Pre-Diabetes: ??5.7% - 6.4% Diagnostic of Diabetes: ??> or = 6.5% (if confirmed) Goals for glycemic control in diabetics (ADA 2017): <7.0% target for non adults with diabetes. <7.5% target for children and adolescents with Type I Diabetes. More or less stringent targets may be appropriate for individual patients. Est Avg Glucose 232 mg/dL 14:20 EST [facility] Comment:The eAG represents t he A1c result expressed as average glucose in mg/dL. Blood VENOUS BLOOD / Unknown Venipuncture / Unknown 07/28/2020 11:25 EST 07/28/2020 11:50 EST Whit Rae MD CHEMISTRY & BLOOD GA S ORDERABLES [facility] [address] [place] [address] documented in this encounter Visit Diagnoses Diagnosis Encounter for sterilization- Primary Sterilization documented in this encounter
--- OUTSIDE RECORDS SUMMARY | 2023-12-16 00:39 | XMS_ITS | Encounter Summary ---
Author Organization [facility] Address [address] [place] [address] Care Team Providers Care Industrial Editor Name Role Phone Unavailable Primary Care Provider Unavailabl e Encounter Details Date Type Department Care Team (Late st Contact Info) Description 06/25/2020 11:45 EST Phlebotomy Only [facility] 2 Phlebotomy [address] [place] [address] Dialysis Tech, Acc Phlebotomy of unknown anatomic location Social [...] 02/21/2024 9:45 EDT Office Visit [facility] Adult Primary Care - [address] [phone] Carrington Calderon MD [address] [place] [phone] 02/27/2024 8:30 EDT Telemedicine [facility] Sleep Program - [address] [phone] Rn, Sleep 02/29/2024 10:30 EDT Appointment [facility] Radiology Nuclear Medicine and PET - [address] [phone] 02/29/2024 14:30 EDT Appointment [facility] Radiology Nuclear Medicine and PET - [address] [phone] 03/01/2024 8:00 EDT Appointment [facility] Radiology Nuclear Medicine and PET [address] [address] 03/01/2024 9:30 EDT Appointment [facility] Radiology Nuclear Medicine and PET [facility] [address] [place] [address] documented as of this encounter Procedures Procedure Name Priority Date/Time Associated Diagnosis Comments QUANT BETA HCG, Routine 06/25/2020 10:45 EST of unknown anatomic location documented in this encounter Results * (ABNORMAL) QUANT BETA HCG, (06/25/2020 10:45 EST) Beta HCG Quant, 49(H) <5 mIU/ml 06/25/2020 12:28 EST [facility] Comment: NOTE: : Negative: Less than 5mIU/mL Indeterminant: Between 5 and 25 mIU/mL, recommend repeat testing in 48 hours Positive: Greater than 25 mIU/mL The results of this assay can be falsely lowered due to the consumption of Biotin. Blood VENOUS BLOOD / Unknown Venipuncture / Unknown 06/25/2020 10:45 EST 06/25/2020 11:43 EST Charu Flynn MD CHEMISTRY & BLOO D GAS ORDERABLES [facility] [address] [place] [address] documented in this encounter Visit Diagnoses Diagnosis of unknown anatomic location state, incidental documented in this encounter
--- OUTSIDE RECORDS SUMMARY | 2023-12-16 00:39 | XMS_ITS | Encounter Summary ---
Author Organization [facility] Address [address] [place] [address] Care Team Providers Care Getter Operator Name Role Phone Unavailable Primary Care Provider Unavailabl e Reason for Visit * Reason Comments Foot Problem Encounter Details Date Type Department Care Team (Latest Contact Info) Description 06/25/2020 15:00 EST Post-op Visit [facility] Foot & Ankle Program - [address] [address] [address]za Navarro [address] [phone] Osteomyelitis of left foot, unspecified type ([facility]) (Primary Dx); Type 2 diabetes mellitus with diabetic polyneuropathy, with long-term current use of insulin ([facility]) Social History Tobacco Use Types Packs/Day Years [...] Progress Notes * Elza Navarro, DPM - 06/25/2020 1500 EST HPI: Cristy Luo is a 35 y.o. female patient who presents for follow up 1 week status post left great toe amputation. She reports that her foot has been doing well. She has been keeping the dressingclean and dry. She has been taking the antibiotics without any issues and is on her last day of these. She has been wearing the surgical shoe and limiting her activity. Ms. Luo is unfortunately undergoing a miscarriage currently and is having some cramping and discomfort from this. Review of Systems A ten point review [...] 1. Osteomyelitis of left foot, unspecified type ([facility]) 2. Type 2 diabetes mellitus with diabetic polyneuropathy, with long-term current use of insulin ([facility]) No orders of the defined types were placed in this encounter. PLAN: Ms. Luo presents today for follow-up 1 week status post left great toe amputation. This is healing well with no signs of infection. We reviewed her pathology results which showed clean margins. Sheis going to finish her antibiotics. No need for renewal. I did apply new dressing to the foot today. She is going to keep this clean, dry, intact for 1 more week. To continue on the surgical shoe andlimit her activity for 1 more week. I will see her back next week for suture removal. She knows to call with any questions or concerns prior to follow-up and is happy this plan. Portions of this document have been prepared with speech recognition software or keyboard senior database engineer techniques. Minor irregularities or keyboarding misprints may be present documented in this encounter Plan of Treatment Upcoming Encounters Date Type Department Care Team (Late st Contact Info) Description 02/21/2024 9:45 EDT Office Visit [facility] Adult Primary Care - [address] [phone] Carrington Calderon MD [address] [place] [phone] 02/27/2024 8:30 EDT Telemedicine [facility] Sleep Program - [address] [phone] Rn, Sleep 02/29/2024 10:[address] [facility] Radiology Nuclear Medicine and PET - [address] [address] 02/29/2024 14:[address] [facility] Radiology Nuclear Medicine and PET - [address] [address] 03/01/2024 8:[address] [facility] Radiology Nuclear Medicine and PET - [address] [address] 03/01/2024 9:[address] [facility] Radiology Nuclear Medicine and PET [address] [address] documented as of this encounter Visit Diagnoses Diagnosis Osteomyelitis of left foot, unspecified type ([facility])- Primary Type 2 diabetes mellitus with diabetic polyneuropathy, with long-term current use of insulin ([facility]) documented in this encounter
--- OUTSIDE RECORDS SUMMARY | 2023-12-16 00:39 | XMS_ITS | Encounter Summary ---
Author Organization [facility] Address [address] [place] [address] Care Team Providers Care Combination Operator Name Role Phone Unavailable Primary Care Provider Unavailabl e Reason for Visit * Reason Onset Date Comments Miscarriage 06/26/2020 Nausea 06/26/2020 Abdominal Pain 06/26/2020 Encounter Details Date Type Department Care Team (Late st Contact Info) Description 06/26/2020 Telephone [facility] Adult Primary Care [address] [address] Tonja Alejandro PA-C [address] [place] [address] [place] [phone] Miscarriage; Nausea; Abdominal Pain Social History Tobacco Use Types Packs/Day [...] Telephone Encounter - Tonja Alejandro PA-C - 06/26/2020 1607 EST Spoke with Stella. She has had multiple miscarriages so is very well aware of all of the symptoms. Hersymptoms have been intermittent with severe pain and bleeding/passing tissue. She did okay yesterday afternoon and then her symptoms got worse again. They seem to be fluctuating. She is having a lot of bleeding although no recent increase in bleeding. I encouraged her to call MARINE ENGINEERING PROFESSOR office back for further recommendations. She really would like to try to stay out of the ER department as they have not been helpful the last time they went there. I did explain to her there can be serious risk with miscarriages with increase pain and bleeding. She understands this and will call MARINE ENGINEERING PROFESSOR. * Telephone Encounter - Jesi Lua RN - 06/26/2020 1537 EST Spoke with . He states keno dealer got to wifes phone and told her to go to ER. He states he is not bringing her back to the ER. He states she is not comfortable bringing her there and having them sitthere for 6hrs like they did the other day and them not do anything. He is not happy with [employer] office and states that is why he called us. Will forward message to Tonja DAWSON * Telephone Encounter - Tonja Alejandro PA-C - 06/26/2020 1525 EST Looks like someone from [employer] tried calling her. Patient needs to return phone call to them. * Telephone Encounter - Eryn Navarrete RN - 06/26/2020 1517 EST Reviewed response with patient's . He is still concerned about her pain management Will review with provider. * Telephone Encounter - Tonja Alejandro PA-C - 06/26/2020 1435 EST Please let patient know that I called over to her REST ROOM MAID office/attending application developer. The doctor had put in a message for someone to contact her shortly to review symptoms which are concerning. * Telephone Encounter - Jesi Lua RN - 06/26/2020 1408 EST Spoke with , he states pain and bleeding has not increased from OB appt yesterday. Its as just as bad as it was when they refused to give pain meds. is frustrated she is suffering in pain. She is soaking the middle of an overnight pad with blood and changing every 1- 1.5 hours, she is also lying down most of time with foot elevated due to amputation therefore gravity not helping. When she goes to bathroom she does soak the toilet paper. Denies fevers, she says she is cold but doesn't feel warm to touch. * Telephone Encounter - Tonja Alejandro PA-C - 06/26/2020 1346 EST Has she talked with her back up worker? im concerned regarding her symptoms especially if she has a retained clot. I also worry about possible hemorrhage ( if she is severely bleeding, any increased bleedingsince yesterday? ). Has the pain changed since yesterday? Any fevers? I really think she needs to let keno dealer know whats going on today . I have seen her a couple times in the office and if she is in that much pain where her has to talk with you, that makes me pretty concerned that she may needfurther work up. * Telephone Encounter - Jesi Lua RN - 06/26/2020 1316 EST Spoke with pt and . Mostly because pt is in severe pain, 10 on 0- 10 scale and the severe pain is causing her to vomit. Has pain in any position, lying,sitting etc. He states they were in the ER on 06/23/19 and they only gave fluids, and kirstin blood. They opted not to do a D&C because she felt the whole thing last time. She is opting to let the miscarriage happen naturally. She saw OB yesterday and he states they saw a clot that needs to pass. He states he feels she is in the last stages but she is in so much pain she cant eat and is vomiting. Cant take ibuprofen and tylenol and heating pad not helping. Advised him I will discuss w/ PCP to see if she would prescribe something and if so can we cancel appt tomorrow. (this is not her amputated toe, saw Paul provider yesterday and things were fine) Uses [employer] in [place]. * Telephone Encounter - Dayana Cosme - 06/26/2020 1252 EST Reason for Call: Miscarriage, Nausea, and Abdominal Pain Summary/Symptoms: Patients called stating Patient had her toe amputated approximently 2 weeks ago, during this Patient was alerted she was . Patient then had a Miscarriage, this is Patients 8th Miscarriage. stated Patient was in ED and released. stated ED wouldn't prescribe Pt any Pain Medication. Patient is Vomiting due to the Pain. I schedule Pt for tomorrow morning. requesting to speak with a Nurse or Provider. Onset and Duration? 2 wks, on going Appointment Offered? Yes, scheduled Tomorrow Dayana Cosme 06/26/2020 12:52 documented in this encounter Plan of Treatment Upcoming Encounters Date Type Department Care Team (Late st Contact Info) Description 02/21/2024 9:45 EDT Office Visit [facility] Adult Primary Care - [address] [phone] Carrington Calderon MD [facility] [address] [place] [phone] 02/27/2024 8:30 EDT Telemedicine [facility] Sleep Program - [address] [phone] Rn, Sleep 02/29/2024 10:30 EDT Appointment [facility] Rad[facility] Nuclear Medicine and PET - [address] [id number] 02/29/2024 14:30 EDT Appointment [facility] Radiology Nuclear Medicine and PET - [address] [id number] 03/01/2024 8:00 EDT Appointment [facility] Radiology Nuclear Medicine and PET - [address] [id number] 03/01/2024 9:30 EDT Appointment [facility] Radiology Nuclear Medicine and PET - [address] [id number] documented as of this encounter Visit Diagnoses Not on filedocumented in this encounter Additional Health Concerns Infection Onset Date Last Indicated Resolved Time R/O COVID-19 08/04/2020 08/04/2020 08/04/2020 11:4 0 EST documented as of this encounter
--- OUTSIDE RECORDS SUMMARY | 2023-12-16 00:39 | XMS_ITS | Encounter Summary ---
Author Organization [facility] Address [address] [place] [address] Care Team Providers Care Mold Engraver Name Role Phone Unavailable Primary Care Provider Unavailabl e Reason for Visit * Reason Comments Vaginal Bleeding Vaginal bleeding, ba ck pain, and cramping since tuesday, not soaking pads, only when wiping. seen here previously for toe amputation. Encounter Details Date Type Department Care Team (Late st Contact Info) Description 06/23/2020 8:23 EST - 06/23/2020 14:10 EST Emergency [facility] Emergency Department - [address] [address] Siobhan Hare PA-C [address] [place] [address], Level 1 [place] [address] of unknown anatomic location (Primary Dx) Discharge Disposition: Home or Self [...] 8:22 EST documented as of this encounter Last Filed Vital Signs Vital Sign Reading Time Taken Comments Blood Pressure 115/66 06/23/2020 1400 EST Pulse - - Temperature - - Respiratory Rate 16 06/23/2020 1400 EST Oxygen Saturation 99% 06/23/2020 1400 EST Inhaled Oxygen Concentration - - Weight 90 kg (198 lb 6.6 oz) 06/23/2020 0821 EST Height 165 cm (5' 4.96) 06/23/2020 0821 EST Body Mass Index 33.06 06/23/2020 0821 EST documented in this encounter [...] * Discharge Instructions* Siobhan Hare PA-C - 06/23/2020 14:01 EST You were evaluated for vaginal bleeding in You need your labs rechecked on Tuesday as well as a repeat ultrasound Rest, drink plenty of fluids. Take Tylenol as needed for pain If your pain is not controlled, if you feel dizzy or lightheaded or have a fainting episode, if youdevelop a fever, or if any other concerning symptoms occur, please return to the ED immediately forreevaluation. documented in this encounter Medications at Time of Discharge Medication Sig Dispensed Refills Start Date End Date amoxicillin-clavulanat e (AUGMENTIN) 875-125 mg per tablet Take 1 Tab by mouth 2 times daily for 7 days. 14 Tab 06/16/2020 06/23/2020 amoxicillin-clavulanat e (AUGMENTIN) 875-125 mg per tablet Take 1 Tab by mouth every 12 hours. 06/25/2020 blood glucose meter One Touch Verio Flex [...] time each day. 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 Patient found out she was on 06/16 with incidentally positive UPT, and had light bleeding Tuesday, Tuesday with associated pelvic pressure. She had HCG on 06/19 of . She had an US on 06/20 at6+2 by LMP which showed heterogeneous tissue extending towards the interstitium from the uterine cavity. Then on 06/21 HCG was 152 (42% rise). Patient today reports waking up at 0300 this morning with lower back pain, and vomited three times (last at 0600). She has had VB which fills half a pad or so in an hour. She also reports cramping uterine pain. She denies current nausea or dizziness. Past OBHx: OB History Para Term AB Living 9 0 0 0 8 0 SAB TAB Ectopic Multiple Live Births 7 0 1 0 0 # Outcome Date GA Lbr Partha/2nd Weight Sex Delivery Anes PTL Lv 9 10/2019 Comments: D+C 8 Ectopic 10/2018 10w4d ECTOPIC Comments: interstitial diagnosed at [facility]; given MTX 10/26/18 7 SAB 01/2018 6w0d SAB Comments: D&C at [facility] after nonviable on US; had to have repeat D&Bhavna April for retained POCs 6 06/2017 6w0d SAB Comments: D&C at [facility]; nonviable seen on US; fourth with current 5 SAB 02/2017 6w0d SAB Comments: D&C at [facility]; third with current 4 SAB 08/2015 10w0d SAB Comments: D&C at [facility]; 2nd with current 3 SAB 01/2015 9w0d SAB Comments: D&C at [facility]; first current 2 SAB 2005 6w0d SAB Comments: first ; ex ; twin confirmed by US at [facility]; no medical or surgical tx 1 Past GynHx: MTX given 10/26/2018 for interstitial . See above. PMedHx: Past Medical History: Diagnosis Date ??? Anxiety ??? Arthritis 12/05/19- Spine- told years ago ??? Depression ??? Diabetes ([facility]) A1c 10.3 on 11/28/2019 - poorly controlled ??? Difficulty opening mouth 06/13/2020 pain with opening mouth wide ??? Does not exercise 06/13/2020 due to infected toe ??? History of general anesthesia ??? Hx of ectopic 06/20/2020 ??? Irritable bowel syndrome 06/13/2020 ? ? Nausea & vomiting occasionally ??? Obesity, unspecified ??? Osteomyelitis ([facility]) of left great toe ??? Peripheral neuropathy 12/05/19- Bilateral feet ??? Skin problem 11/28/19- Per MD notes, left foot with redness and swelling, and open wound. WBC count 14.38. MRI today to rule out osteomyelitis. ??? Spontaneous miscarriage 09/04/201502/18, 08/19. Followed by Dr. López[facility] in OBGYN PSurgHx: Past Surgical History: Procedure Laterality Date ??? [...] (mostlikely pilonidal cyst) ??? PILONIDAL CYST EXCISION Meds: No current facility-administered medications on file prior to encounter. Current Outpatient Medications on File Prior to Encounter Medication Sig Dispense Refill ??? amoxicillin-clavulanate (AUGMENTIN) 875-125 mg per tablet Take 1 Tab by mouth 2 times daily for7 days. 14 Tab 0 ??? amoxicillin-clavulanate (AUGMENTIN) 875-125 mg per tablet Take 1 Tab by mouth every 12 hours. ??? blood glucose meter One Touch Verio Flex meter. 1 Each 0 ??? blood glucose test strips One Touch Verio IQ or other brand compatible with meter and covered by patient's insurance. Testing QID. 100 Each 5 ??? gabapentin (NEURONTIN) 100 mg capsule Take 1 Cap by mouth 3 times daily. 1 tab AM, noon, 3 tabsin fiordaliza 400 Cap 0 ??? insulin aspart U-100 (NOVOLOG FLEXPEN) [...] covered by patient'sinsurance. 100 Each 5 ??? nicotine (NICODERM CQ) 7 mg/24 hr patch Apply one patch only daily on skin without hair. Apply to a different skin site at the same time each day. 14 Patch 0 Allergies: Allergies Allergen Reactions ??? Citalopram Other (See Comments) suicidal ideation, approx 2012 ??? Other - See Comments Swelling of throat pomergrante ??? Advil [Ibuprofen] Hives Social Hx: Social History Socioeconomic History ??? Marital status: Spouse name: Fermin Luo ??? Number of children: Not on file ??? Years of education: Not on file ??? Highest education level: Not on file Occupational History ??? Not on file Social Needs ??? Financial resource strain: Not on file ??? Food insecurity Worry: Never true Inability: Never true ??? Transportation needs Medical: Not on file Non-medical: Not on file Tobacco Use ??? Smoking status: Current Every Day Smoker Packs/day: 0.25 Years: 10.00 Pack years: 2.50 Types: Cigarettes Start date: 11/10/2010 Last attempt to quit: 08/07/2019 Years since quittin.8 ??? Smokeless tobacco: Never Used ??? Tobacco comment: 06/13/20 actively trying to quit Substance and Sexual Activity ??? Alcohol use: Not Currently Alcohol/week: 0.0 standard drinks Frequency: Monthly or less Drinks per session: 1 or 2 Binge frequency: Never ??? Drug use: Yes Types: Marijuana Comment: 1X/DAY FOR ANXIETY ??? Sexual activity: Yes Partners: Male Lifestyle ??? Physical activity Days per week: Not on file Minutes per session: Not on file ??? Stress: Not on file Relationships ??? Social connections Talks on phone: Not on file Gets together: Not on file Attends mu-ism service: Not on file Active member of club or organization: Not on file Attends meetings of clubs or organizations: Not on file Relationship status: Not on file ??? Intimate partner violence Fear of current or ex partner: Not on file Emotionally abused: Not on file Physically abused: Not on file Forced sexual activity: Not on file Other Topics Concern ??? Not on file Social History Narrative ??? Not on file Family Hx: Family History Problem Relation Age of Onset ??? Cancer Maternal Grandmother Breast ??? Diabetes Paternal Grandmother ??? Diabetes Maternal Aunt ??? Diabetes Paternal Aunt ??? Diabetes Paternal Uncle Objective: Vitals: 06/23/20 0821 06/23/20 1120 BP: (!) 124/91 107/60 BP Cuff Location: Right arm BP Patient Position: Sitting Semi fowlers Resp: 18 18 SpO2: 100% 98% Weight: 90 kg (198 lb 6.6 oz) Height: 165 cm (64.96) Body mass index is 33.06 kg/m??. Gen: NAD Psych: AAOx3 CV: RRR Lungs: CTAB Abd: soft, NT, ND Ext: NT, WWP, no edema PE: Normal external genitalia, normal vaginal mucosa, cervix appears nulliparous. Dark red VB in the vaginal vault. On bimanual exam, uterus is small, mobile, tenderness to palpation of right adnexa,no left adnexal tenderness. No cervical motion tenderness. Labs: Results for DENNIS LUO ( ) as of 06/23/2020 13:38 06/23/2020 08:53 Sodium 143 Potassium 5.0 Chloride 101 CO2 28 BUN 12 Creatinine 0.44 (L) Glucose, Serum 249 (H) Calcium 10.2 Calculated Calcium 9.5 Total Protein 8.5 (H) Albumin 4.9 AST 36 ALT 20 Bilirubin, Total 0.7 Total Alkaline Phosphatase 118 GFR, Calculated 131 Quant Beta HCG, Preg 111 (H) WBC 6.42 RBC 4.96 Hemoglobin 15.4 (H) HCT 43.6 MCV 88 MCH 31.0 MCHC 35.3 RDW-CV 12.0 RDW-SD 38.6 Imagin06/20/2020: There is no visualized gestational sac either in the uterus or in the adnexa, nor extrauterine mass. The patient does have a hx of a prior interstitial , and there is heterogeneous tissue extending towards the interstitium from the uterine cavity. Clinical correlation is suggested with serial hCG and consider a repeat scan in 5 days and as clinical hx allows. 06/23/2020: of unknown location/status with no gestational sac notified in the uterus. Heterogeneous material is again noted in the left cornua of the uterus extending towards the interstitium which may represent residual blood products/products of conception. Findings may represent or less likely interstitial ectopic . Early intrauterine is also felt to be less likely. 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 Patient has normal vitals, and mild tenderness with palpation of her right adnexa. She has a normal Hct at 43. Her HCG did not rise normally from 06/19 to 06/21 (108 --> 152, 42% rise), and now is decreased at 111. Her ultrasound continues to show heterogeneous tissue within the uterus and extending to the left interstitium. We discussed with the patient that this is most likely a nonviable , and that she could be spontaneously miscarrying given her HCG trend. We also discussed this could be an interstitial or ectopic . Plan: - For management, we discussed close observation with HCG trend, and we also discussed option of diagnostic / therapeutic manual vacuum aspiration vs D+C to evaluate if patient has intrauterine tissue via this method. Patient would like to try to avoid a procedure at this time given downtrending HCG, which is reasonable. - Repeat HCG 06/25 - Repeat US in our clinic 06/25 is scheduled - Patient received rhogam 06/20 - Instructed to call if worsening abdominal pain, unable to tolerate PO, or VB soaking > 1 pad per hour for more than 2 hours Patient seen, images reviewed, and discussed with Dr. Mederos. Mackenzie Kenyon MD 06/23/2020 13:39 PGY4, OBGYN Pager #[phone] documented in this encounter ED Notes * Siobhan Hare PA-C - 06/23/2020 1410 EST DOS: 06/23/2020 Chief Complaint Patient presents with ??? Vaginal Bleeding Vaginal bleeding, back pain, and cramping since tuesday, not soaking pads, only when wiping. seen here previously for toe amputation. HPI The patient is a 35 y.o. female who presents today with Vaginal Bleeding (Vaginal bleeding, back pain, and cramping since tuesday, not soaking pads, only when wiping. seen here previously for toe amputation. ) HPI Patient is a 35-year-old female, -0-8-0, with past medical history significant for insulin-dependent diabetes, migraine, general anxiety disorder, recent diabetic foot infection with subsequent amputation, prior interstitial , who presents to the ED for evaluation of vaginal bleeding in . Patient states that during a preoperative visit last week, she found out that she was . Her last menstrual period was 05/06/2020. On 06/19/20 she had an hCG that was 108, on 06/20/20 and ultrasound demonstrated a heterogenous material with no gestational sac, no mass. Her hCG on 06/21/2020 was 152, only a 41% increase. She states that last night she developed some low back pain and some uterine cramping, which feels like her prior miscarriages. She has had some dark bleeding from the vagina. No fevers or chills, headache or dizziness, chest pain, shortness of breath, or urinary symptoms. She is following with maternal- medicine. Review of Systems Review of Systems See above, otherwise my standard 10 point ROS is negative. The patient's past medical, family and social history was reviewed and updated as needed. Allergies Allergen Reactions ??? Citalopram Other (See Comments) suicidal ideation, approx 2012 ??? Other - See Comments Swelling of throat pomergrante ??? Advil [Ibuprofen] Hives Vital Signs Vitals Reassessment?: Yes Heart Rate: 82 BPM Resp: 16 SpO2: 99 % BP: 115/66 BP MAP: 69 mm Hg BP Device: BP Machine BP Patient Position: Semi fowlers BP Cuff Location: Right arm O2 Device: None (Room air) Physical Exam Constitutional: Appearance: Normal appearance. She is well-developed. HENT: Head: Normocephalic and atraumatic. Mouth/Throat: Mouth: Mucous membranes are moist. Eyes: Comments: pink Neck: Musculoskeletal: Normal range of motion. Cardiovascular: Rate and Rhythm: Tachycardia present. Comments: HR low 100's Pulmonary: Effort: Pulmonary effort is normal. Breath sounds: Normal breath sounds. Abdominal: Tenderness: There is abdominal tenderness (mild suprapubic ttp). There is no right CVA tenderness, left CVA tenderness, guarding or rebound. Genitourinary: Comments: Deferred to gynecology Musculoskeletal: Comments: Foot in splint Skin: General: Skin is warm and dry. Neurological: Mental Status: She is alert and oriented to person, place, and time. Psychiatric: Mood and Affect: Mood normal. RESULTS EKG orders: None Radiology orders: US OB FIRST TRIMESTER (LESS THAN 14 WEEKS) TRANSVAGINAL Imaging Reviewed. I have independently reviewed the images. Results are notable for no gestational sac, heterogenous material in cornua of uterus Procedures ED COURSE A medical screening exam was performed. Patient is a 35-year-old female, -0-8-0, with past medical history significant for insulin-dependent diabetes, migraine, general anxiety disorder, recent diabetic foot infection with subsequent amputation, prior interstitial , who presents to the ED for evaluation of vaginal bleeding in Vital signs reveal tachycardia, blood pressure is stable, she is resting the stretcher in no acute distress. She has some suprapubic tenderness to palpation without rebound or guarding, no CVA tenderness. Her foot is splinted post toe amputation Patient feels that her symptoms are consistent with her multiple prior miscarriages. hCG today is 111, down from 152 She is known to be Rh-, received a full dose RhoGam on Thursday Ultrasound is consistent with of unknown location, there is no gestational sac, there is some heterogenous material in the left cornua Spoke with gynecology, who kindly evaluated patient in the emergency department, performed a pelvicexam which showed some dark blood in the vaginal vault and some right adnexal tenderness. Plan at this time is to trend her hCG again, she was discharged with ectopic precautions, and will continue to follow closely in the gynecology office. VSS, afebrile. PE concerning for of unknown location. Pt rating pain at 4/10, is well-appearing and resting in NAD. Discussed symptomatic measures and discharged to home with detailed instructions and closely recommended follow-up. Supervising Physician: Anthony Final diagnoses: of unknown anatomic location DISPOSITION: Discharged The patient's pain was managed to an adequate level weighing risk vs. benefit of further medications. Upon departure from the Emergency Department, the patient's pain was 4 on a zero to ten scale. Any further pain treatment will be at the discretion of the provider following up with the patient based on their clinical assessment. Condition at departure from the Emergency Department: Good PCP: Tonja Alejandro [facility] 06/28/2020 17:56 No flowsheet data found. * Madelin Ma RN - 06/23/2020 1230 EST GRANITE INSTALLER at bedside * Marychuy Kaufman - 06/23/2020 0905 EST Blood drawn via saline lock per protocol, tiger and purple tube(s) sent to lab per order. documented in this encounter Plan of Treatment Upcoming Encounters Date Type Department Care Team (Late st Contact Info) Description 02/21/2024 9:45 EDT Office Visit [facility] Adult Primary Care - [address] [id number] Carrington Calderon MD 1 [facility] 1 [place] [phone] 02/27/2024 8:30 EDT Telemedicine [facility] Sleep Program - [address] [place] [address] [place] [address] Rn, Sleep 02/29/2024 10:30 EDT Appointment [facility] Radiology Nuclear Medicine and PET - [address] [address] 02/29/2024 14:30 EDT Appointment [facility] Radiology Nuclear Medicine and PET - [address] [address] 03/01/2024 8:00 EDT Appointment [facility] Radiology Nuclear Medicine and PET [address] [address] 03/01/2024 9:30 EDT Appointment [facility] Radiology Nuclear Medicine and PET [address] [address] documented as of this encounter Procedures Procedure Name Priority Date/Time Associated Diagnosis Comments US OB FIRST TRIMESTER (LESS THAN 14 WEEKS) TRANSVAGINAL STAT 06/23/2020 9:55 EST HN LAB CBC SMEAR REVIEW Today 06/23/2020 8:53 EST COMPLETE BLOOD COUNT AND DIFFERENTIAL STAT 06/23/2020 8:53 EST QUANT BETA HCG, STAT 06/23/2020 8:53 EST COMPREHENSIVE METABOLIC PANEL (CMP) STAT 06/23/2020 8:53 EST documented in this encounter Results * US OB FIRST TRIMESTER (LESS THAN 14 WEEKS) TRANSVAGINAL (06/23/2020 9:55 EST) Anatomical Region Laterality Modality Pelvis Ultrasound 06/23/2020 10:5 3 EST Impressions 06/23/2020 10:53 EST of unknown location/status with no gestational sac notified in the uterus. Heterogeneous material is again noted in the left cornua of the uterus extending towards the interstitium which may represent residual blood products/products of conception. Findings may represent or less likely interstitial ectopic . Early intrauterine is also felt to be less likely. Follow- up with obstetrics/gynecology is suggested. Reference: Ismael Ramsey, et al. Diagnostic criteria for nonviable early in the first trimester. [place] Journal of Medicine 369.15 (2013): 5240-3054. I have personally reviewed the images and the above interpretation and agree with the findings. Narrative 06/23/2020 10:53 EST US OB FIRST TRIMESTER (LESS THAN 14 WEEKS) TRANSVAGINAL ??06/23/2020 9:35 AM SIGNS AND SYMPTOMS/COMMENTS: ?? of unknown location, LMP 05/06, HCG 156 two days ago, not doubling appropriately COMPARISON: Obstetric ultrasound from 06/20/2020. TECHNIQUE: Grayscale and color/spectral Doppler ultrasound of the pelvis was performed, first transabdominally, and then transvaginally.. MATERNAL STRUCTURES: Uterus: The anteverted uterus measures 7.3 x 3.8 x 4.7 cm in size. Fluid collections within uterus: There is material of mixed internal echogenicity identified along the left cornua of the uterus which measures 1.5 x 1.1 cm. This is similar in size and appearance compared to ultrasound from 06/20/2020. In addition, predominantly hypoechoic/anechoic material extends towards the uterine body, likely additional intrauterine blood products. Right ovary: The right ovary measures 3.1 x 1.9 x 1.5 cm in size, for an estimated right ovarian volume of 4.5 mL. Arterial and venous Doppler waveforms and color flow are present in the right ovary. A 1.5 x 1.5 x 1.3 likely corpus luteum is present. Left ovary: The left ovary measures 2.1 x 2 x 1.7 cm in size, for an estimated left ovarian volume of 5.5 mL. Arterial and venous Doppler waveforms and color flow are present in the left ovary. Other adnexal masses: Absent Cervix: Anechoic nabothian cyst is present in the cervix. Free fluid: No significant free fluid. BIOMETRY/MEASUREMENTS: Last menstrual period: 05/06/2021 = 6 weeks, 6 days Prior ultrasound dating: Not available. Procedure Note Zac Benjamin MD - 06/23/2020 US OB FIRST TRIMESTER (LESS THAN 14 WEEKS) TRANSVAGINAL 06/23/2020 9:35AM SIGNS AND SYMPTOMS/COMMENTS: of unknown location, LMP 05/06, [id number] two days ago, not doubling appropriately COMPARISON: Obstetric ultrasound from 06/20/2020. TECHNIQUE: Grayscale and color/spectral Doppler ultrasound of the pelviswas performed, first transabdominally, and then transvaginally.. MATERNAL STRUCTURES: Uterus: The anteverted uterus measures 7.3 x 3.8 x 4.7 cm in size. Fluid collections within uterus: There is material of mixed internalechogenicity identified along the left cornua of the uterus which measures1.5 x 1.1 cm. This is similar in size and appearance compared toultrasound from 06/20/2020. In addition, predominantly hypoechoic/anechoicmaterial extends towards the uterine body, likely additional intrauterineblood products. Right ovary: The right ovary measures 3.1 x 1.9 x 1.5 cm in size, for anestimated right ovarian volume of 4.5 mL. Arterial and venous Dopplerwaveforms and color flow are present in the right ovary. A 1.5 x 1.5 x 1.3likely corpus luteum is present. Left ovary: The left ovary measures 2.1 x 2 x 1.7 cm in size, for anestimated left ovarian volume of 5.5 mL. Arterial and venous Dopplerwaveforms and color flow are present in the left ovary. Other adnexal masses: Absent Cervix: Anechoic nabothian cyst is present in the cervix. Free fluid: No significant free fluid. BIOMETRY/MEASUREMENTS: Last menstrual period: 05/06/2021 = 6 weeks, 6 days Prior ultrasound dating: Not available. IMPRESSION of unknown location/status with no gestational sac notified inthe uterus. Heterogeneous material is again noted in the left cornua ofthe uterus extending towards the interstitium which may represent residualblood products/products of conception. Findings may represent orless likely interstitial ectopic . Early intrauterine pregnancyis also felt to be less likely. Follow-up with obstetrics/gynecology issuggested. Reference: Ismael Ramsey et al. Diagnostic criteria for nonviablepregnancy early in the first trimester. [place] Journal of Jymzavln749.15 (2013): 4248-2062. I have personally reviewed the images and the above interpretation andagree with the findings. Siobhan Hare PA-C IMG US OB OR DERABLES * HN LAB CBC SMEAR REVIEW (06/23/2020 8:53 EST) Differential Comment Slide was examined by a technologist to verify the WBC and/or platelet count. 06/23/2020 9:44 EST [facility] Blood VENOUS BLOOD / Unknown Venipuncture / Unknown 06/23/2020 8:53 EST 06/23/2020 9:06 EST Siobhan Hare PA-C HEMATOLOGY & PF4 ORDERABLES Performing Organization Address City/State/[facility] Co de Phone Number [facility] [address] [place] [phone] * (ABNORMAL) COMPLETE BLOOD COUNT AND DIFFERENTIAL (06/23/2020 8:53 EST) WBC 6.42 4.00 - 12.40 K/cmm 06/23/2020 9:45 [facility] RBC 4.96 3.86 - 5.04 M/cmm 06/23/2020 9:45 [facility] Hemoglobin 15.4(H) 11.6 - 15.2 gm/dL 06/23/2020 9:45 [facility] HCT 43.6 34.9 - 44.4 % 06/23/2020 9:45 [facility] MCV 88 81 - 98 fl 06/23/2020 9:45 [facility] MCH 31.0 26.7 - 33.3 pg 06/23/2020 9:45 [facility] [facility] MCHC 35.3 32.1 - 35.9 gm/dL 06/23/2020 9:45 [facility] RDW-CV 12.0 <14.7 % 06/23/2020 9:45 [facility] RDW-SD 38.6 <50.4 fl 06/23/2020 9:45 [facility] PLT 06/23/2020 9:45 [facility] Comment:Unreportable due to presence of platelet clumps. MPV 06/23/2020 9:45 [facility] Comment:Not Available % Neutrophils 52.1 % 06/23/2020 9:45 [facility] % Lymphocytes 41.0 % 06/23/2020 9:45 [facility] % Monocytes 4.7 % 06/23/2020 9:45 [facility] % Eosinophils 1.7 % 06/23/2020 9:45 [facility] % Basophils 0.3 % 06/23/2020 9:45 [facility] % Immature Grans 0.2 % 06/23/19 9:45 [facility] Absolute Neutrophils 3.35 2.20 - 8.85 K/cmm 06/23/2020 9:45 [facility] Absolute Lymphocytes 2.63 1.09 - 3.30 K/cmm 06/23/2020 9:45 [facility] Absolute Monocytes 0.30 0.10 - 0.80 K/cmm 06/23/2020 9:45 [facility] Absolute Eosinophils 0.11 0.03 - 0.61 K/cmm 06/23/2020 9:45 [facility] ABS Basophils 0.02 0.01 - 0.11 K/cmm 06/23/2020 9:45 [facility] Absolute Immature Grans 0.01 0.00 - 0.06 K/cmm 06/23/2020 9:45 [facility] Type of Differential: Auto 06/23/2020 9:45 [facility] Blood VENOUS BLOOD / Unknown Venipuncture / Unknown 06/23/2020 8:53 EST 06/23/2020 9:06 EST Siobhan Hare PA-C PACKAGES & D NA PROBE ORDERABLES [facility] [address] [place] [address] * (ABNORMAL) COMPREHENSIVE METABOLIC PANEL (CMP) (06/23/2020 8:53 EST) Sodium 143 136 - 145 mEq/L 06/23/2020 9:24 [facility] Potassium 5.0 3.5 - 5.0 mEq/L 06/23/2020 9:24 [facility] Comment:Slight hemolysis chica ntified, interpret with caution as hemolysis will elevate potassium result. Chloride 101 96 - 110 mEq/L 06/23/2020 9:24 [facility] CO2 Total 28 22 - 32 mEq/L 06/23/2020 9:24 [facility] Glucose 249(H) 70 - 100 mg/dL 06/23/2020 9:24 [facility] BUN 12 10 - 26 mg/dL 06/23/2020 9:24 [facility] Comment: Slight hemolysis identified, interpret with caution as results may be affected due to hemolysis. Creatinine 0.44(L) 0.52 - 1.04 mg/dL 06/23/2020 9:24 [facility] eGFR 131 >60 mL/min/1.7 3m2 06/23/2020 9:24 [facility] Comment:eGFR calculated usin g CKD-EPI equation for non- Americans. Multiply eGFR by 1.16 for patients. Total Protein 8.5(H) 6.3 - 8.2 g/dL 06/23/2020 9:24 [facility] Comment:Slight hemolysis chica ntified, interpret with caution as results may be affected due to hemolysis. Albumin 4.9 3.4 - 4.9 g/dL 06/23/2020 9:24 [facility] Comment:Slight hemolysis chica ntified, interpret with caution as results may be affected due to hemolysis. Alkaline Phosphatase 118 38 - 126 U/L 06/23/2020 9:24 [facility] Comment:Slight hemolysis chica ntified, hemolysis will decrease ALKP result. Interpret with caution as results may be affected due to hemolysis. AST 36 15 - 46 U/L 06/23/2020 9:24 EST [facility] Comment:Slight hemolysis chica ntified, interpret with caution as results may be affected due to hemolysis. ALT 20 <35 U/L 06/23/2020 9:24 [facility] Bilirubin, Total 0.7 <1.4 mg/dL 06/23/19 9:24 [facility] Calcium 10.2 8.5 - 10.5 mg/dL 06/23/2020 9:24 [facility] Calculated Calcium 9.5 8.5 - 10.5 mg/dL 06/23/2020 9:24 [facility] Comment:Slight hemolysis chica ntified, interpret with caution as results may be affected due to hemolysis. Blood VENOUS BLOOD / Unknown Venipuncture / Unknown 06/23/2020 8:53 EST 06/23/2020 9:06 EST Siobhan Hare PA-C CHEMISTRY & BLOOD GAS ORDERABLES Performing Organization Address City/[facility]/ZIP Co de Phone Number [facility] [address] [place] [address] * (ABNORMAL) QUANT BETA HCG, (06/23/2020 8:53 EST) Beta HCG Quant, 111(H) <5 mIU/ml 06/23/2020 9:38 EST [facility] Comment: NOTE: : Negative: Less than 5mIU/mL Indeterminant: Between 5 and 25 mIU/mL, recommend repeat testing in 48 hours Positive: Greater than 25 mIU/mL The results of this assay can be falsely lowered due to the consumption of Biotin. Blood VENOUS BLOOD / Unknown Venipuncture / Unknown 06/23/2020 8:53 EST 06/23/2020 9:06 EST Siobhan Hare PA-C CHEMISTRY & BLOOD GAS ORDERABLES Performing Organization Address [facility]/ZIP Co de Phone Number [facility] [address] [place] [address] documented in this encounter Visit Diagnoses Diagnosis of unknown anatomic location- Primary state, incidental documented in this encounter
--- OUTSIDE RECORDS SUMMARY | 2023-12-16 00:40 | XMS_ITS | Encounter Summary ---
Author Organization [facility] Address [address] [place] [address] Care Team Providers Care Graphic Engineer Name Role Phone Unavailable Primary Care Provider Unavailabl e Encounter Details Date Type Department Care Team (Latest Contact Info) Description 06/05/2020 Travel Social History Tobacco Use Types Packs/Day Years Used Date Smoking Tobacco: Every Day Cigarettes 0 8.7 Started: 11/10/2010; Last attempted to quit: 08/07/2019 Smokeless Tobacco: Never Alcohol Use Standard Drinks/Week Comments Not Currently 0 (1 standard drink = 0.6 oz pur e alcohol) very rare AUDIT-C Answer Date Recorded Frequency of Alcohol [...] have Coronavirus / COVID-19? No / Unsure 06/05/2020 10:23 EST documented as of this encounter Functional [...] [facility] Adult Primary Care - [address] [address] Carrington Calderon MD [address] [phone] 02/27/2024 8:30 EDT Telemedicine [facility] Sleep Program - [address] [address] Rn, Sleep 02/29/2024 10:30 EDT Appointment [facility] Radiology Nuclear Medicine and PET - [address] [address] 02/29/2024 14:30 EDT Appointment [facility] Radiology Nuclear Medicine and PET [address] [phone] 03/01/2024 8:00 EDT Appointment [facility] Radiology Nuclear Medicine and PET [address] [id number] 03/01/2024 9:30 EDT [facility] Nuclear Medicine and PET - [address] [address] documented as of this encounter Visit Diagnoses Not on filedocumented in this encounter
--- OUTSIDE RECORDS SUMMARY | 2023-12-16 00:40 | XMS_ITS | Encounter Summary ---
Author Organization [facility] Address [address] [place] [address] Care Team Providers Care Jewelry Casting Model Maker Apprentice Name Role Phone Unavailable Primary Care Provider Unavailabl e Encounter Details Date Type Department Care Team (Late st Contact Info) Description 06/13/[address] [facility] Adult Primary Care - [address] [phone] Tonja lAejandro PA-C [address] [place] [address] [place] [phone] Tobacco abuse (Primary Dx) Social History Tobacco Use Types [...] have Coronavirus / COVID-19? No / Unsure 06/13/2020 15:18 EST documented as of this encounter Functional [...] Date End Da te nicotine (NICODERM CQ) 7 mg/24 hr patch Apply one patch only daily on skin without hair. Apply to a different skin site at the same time each day. 14 Patch 06/13/2020 03/27/2021 documented in this encounter Plan of Treatment Upcoming Encounters Date Type Department Care Team (Late st Contact Info) Description 02/21/2024 9:[address] [facility] Adult Primary Care - [place] [address] [place], [place] [phone] Carrington Calderon MD 1 [facility] Level [address] [place] [phone] 02/27/2024 8:[address] [facility] Sleep Program - [place] [address] [place] [address] Rn, Sleep 02/29/2024 10:30 EDT [facility] PET - [address] [address] 02/29/2024 14:30 EDT Appointment [facility] Radiology Nuclear Medicine and PET - [address] [address] 03/01/2024 8:00 EDT Appointment [facility] Radiology Nuclear Medicine and PET - [address] [address] 03/01/2024 9:30 EDT Appointment [facility] Radiology Nuclear Medicine and PET [address] [address] documented as of this encounter Visit Diagnoses Diagnosis Tobacco abuse- Primary Tobacco use disorder documented in this encounter
--- OUTSIDE RECORDS SUMMARY | 2023-12-16 00:40 | XMS_ITS | Encounter Summary ---
Author Organization [facility] Address [address] [place] [address] Care Team Providers Care Assembler Equipment Name Role Phone Unavailable Primary Care Provider Unavailabl e Reason for Referral * FILM LOADER (Routine) - Specialty Report Received Specialty Diagnoses / Procedures Referred By Kit t Referred To Contact Diagnoses of unknown anatomic location Procedures OB FIRST TRIMESTER (LESS THAN 14 WEEKS) TRANSVAGINAL David Martínez MD [address] [place] [phone] Referral ID Status Reason Start Date Expiration Date V isits Requested Visits Authorized [id number] Specialty Report Received 06/19/2020 1 1 Reason for Visit * FILM LOADER (Routine) - Specialty Report Received Specialty Diagnoses / Procedures Referred By Kit goode Referred To Contact Diagnoses of unknown anatomic location Procedures US OB FIRST TRIMESTER (LESS THAN 14 WEEKS) TRANSVAGINAL David Martínez MD [address] [place] [phone] Referral ID Status Reason Start Date Expiration Date V isits Requested Visits Authorized [id number] Specialty Report Received 06/19/2020 1 1 Encounter Details Date Type Department Care Team (Latest Contact Info) Description 06/20/2020 9:00 EST - 06/20/2020 23:59 EST Hospital Encounter [facility] [address] [address] of unknown anatomic location Discharge Disposition: Home [...] have Coronavirus / COVID-19? No / Unsure 06/16/2020 13:35 EST documented as of this encounter Functional [facility] [address] [address] Carrington Calderon MD [address] [phone] 02/27/2024 8:30 EDT Telemedicine [facility] Sleep Program - [address] [phone] Rn, Sleep 02/29/2024 10:30 [facility] [address] [phone] 02/29/2024 14:30 EDT Appointment [facility] Radiology Nuclear Medicine and PET [address] [phone] 03/01/2024 8:00 EDT Appointment [facility] Radiology Nuclear Medicine and PET [address] [address] 03/01/2024 9:30 EDT Appointment [facility] Radiology Nuclear Medicine and PET [address] [address] documented as of this encounter Procedures Procedure Name Priority Date/Time Associated Diagnosis Comments US OB FIRST TRIMESTER (LESS THAN 14 WEEKS) TRANSVAGINAL Routine 06/20/2020 9:44 EST of unknown anatomic location documented in this encounter Results * US OB FIRST TRIMESTER (LESS THAN 14 WEEKS) TRANSVAGINAL (06/20/2020 9:44 EST) Anatomical Region Laterality Modality Pelvis Ultrasound 06/20/2020 9:33 EST Addenda Addendum by Cielo Duggan MD on 06/30/2020 14:59 EST Indication Early Assessment. History ======= General History Height 163 cm Height (ft) ?5 ft Height (in) ?4 in Previous Outcomes ?6 Para ?? 0 [facility] children born (T) ?0 [facility] children born (P) ?0 Abortions (A) ??5 [facility] living children (L) ??0 Maternal Assessment Height 163 cm Height (ft) ?5 ft Height (in) ?4 in Physical Exam Initial weight 91 kg Initial weight (lb) ?200 lb Initial BMI ?34.33 kg/m?? Number of gestational sacs: 1. Dating ======= Method of dating: ??based on the LMP LMP on: ?05/06/2020 Cycle: regular cycle GA by LMP ??6 w + 3 d IVAN by LMP : ? 02/10/2021 Assigned: ??Dating performed on 06/20/2020 Based on the LMP Assigned GA ?6 w + 3 d Assigned IVAN: ??02/10/2021 Assessment Gestational sac: Not visualized. Maternal Structures Uterus / Cervix Uterus: ?Anteverted Uterus details: ?No abnormalities detected. Appears normal Endometrial thickness, total ?? 13.8 mm Cervix: ?Appears normal Ovaries / Tubes / Adnexa Rt ovary: ??Normal with Corpus luteum Rt ovary D1 ?3.5 cm Rt ovary D2 ?1.7 cm Rt ovary D3 ?1.7 cm Rt ovary mean ??2.3 cm Rt ovary vol ?? 5.3 cm cubed Lt ovary: ??Normal with Corpus luteum Lt ovary D1 ?2.8 cm Lt ovary D2 ?1.7 cm Lt ovary D3 ?1.4 cm Lt ovary mean ??2.0 cm Lt ovary vol ?? 3.6 cm cubed Pouch of Nicola / Other Structures Cul de Sac: ?Normal Free fluid: ?No free fluid visualized Method ======== Transvaginal ultrasound examination. View: Sufficient. Impression 1st Trimester OB scan ,transvaginal +[id number] There is no visualized gestational sac either in the uterus or in the adnexa, nor extrauterine mass. The patient does have a hx of a prior interstitial , and there is heterogeneous tissue extending towards the interstitium from the uterine cavity. Clinical correlation is suggested with serial hCG and consider a repeat scan in 5 days and as clinical hx allows. The adnexa appear normal. Follow-up Per the FIELD AIDE service. Comment ========= Results discussed w/patient. DATE OF SERVICE: 06/20/2020 Narrative 06/20/2020 12:40 EST Indication Early Assessment. History ======= General History Height 163 cm Height (ft) ?5 ft Height (in) ?4 in Previous Outcomes ?6 Para ?? 0 [facility] children born (T) ?0 [facility] children born (P) ?0 Abortions (A) ??5 [facility] living children (L) ??0 Maternal Assessment Height 163 cm Height (ft) ?5 ft Height (in) ?4 in Physical Exam Initial weight 91 kg Initial weight (lb) ?200 lb Initial BMI ?34.33 kg/m?? Number of gestational sacs: 1. Dating ======= Method of dating: ??based on the LMP LMP on: ?05/06/2020 Cycle: regular cycle GA by LMP ??6 w + 3 d IVAN by LMP : ? 02/10/2021 Assigned: ??Dating performed on 06/20/2020 Based on the LMP Assigned GA ?6 w + 3 d Assigned IVAN: ??02/10/2021 Assessment Gestational sac: Not visualized. Maternal Structures Uterus / Cervix Uterus: ?Anteverted Uterus details: ?No abnormalities detected. Appears normal Endometrial thickness, total ?? 13.8 mm Cervix: ?Appears normal Ovaries / Tubes / Adnexa Rt ovary: ??Normal with Corpus luteum Rt ovary D1 ?3.5 cm Rt ovary D2 ?1.7 cm Rt ovary D3 ?1.7 cm Rt ovary mean ??2.3 cm Rt ovary vol ?? 5.3 cm cubed Lt ovary: ??Normal with Corpus luteum Lt ovary D1 ?2.8 cm Lt ovary D2 ?1.7 cm Lt ovary D3 ?1.4 cm Lt ovary mean ??2.0 cm Lt ovary vol ?? 3.6 cm cubed Pouch of Nicola / Other Structures Cul de Sac: ?Normal Free fluid: ?No free fluid visualized Method ======== Transvaginal ultrasound examination. View: Sufficient. Impression 1st Trimester OB scan ,transvaginal +[id number] There is no visualized gestational sac either in the uterus or in the adnexa, nor extrauterine mass. The patient does have a hx of a prior interstitial , and there is heterogeneous tissue extending towards the interstitium from the uterine cavity. Clinical correlation is suggested with serial hCG and consider a repeat scan in 5 days and as clinical hx allows. The adnexa appear normal. Follow-up Per the FIELD AIDE service. Comment ========= Results discussed w/patient. DATE OF SERVICE: 06/20/2020 Procedure Note Cielo Duggan MD - 06/20/2020 Indication Early Assessment. History ======= General History Height 163 cm Height (ft) 5 ft Height (in) 4 in Previous Outcomes 6 Para 0 [facility] children born (T) 0 [facility] children born (P) 0 Abortions (A) 5 [facility] living children (L) 0 Maternal Assessment Height 163 cm Height (ft) 5 ft Height (in) 4 in Physical Exam Initial weight 91 kg Initial weight (lb) 200 lb Initial BMI 34.33 kg/m?? Number of gestational sacs: 1. Dating ======= Method of dating: based on the LMP LMP on: 05/06/2020 Cycle: regular cycle GA by LMP 6 w + 3 d IVAN by LMP : 02/10/2021 Assigned: Dating performed on 06/20/2020 Based on the LMP Assigned GA 6 w + 3 d Assigned IVAN: 02/10/2021 Assessment Gestational sac: Not visualized. Maternal Structures Uterus / Cervix Uterus: Anteverted Uterus details: No abnormalities detected. Appears normal Endometrial thickness, total 13.8 mm Cervix: Appears normal Ovaries / Tubes / Adnexa Rt ovary: Normal with Corpus luteum Rt ovary D1 3.5 cm Rt ovary D2 1.7 cm Rt ovary D3 1.7 cm Rt ovary mean 2.3 cm Rt ovary vol 5.3 cm cubed Lt ovary: Normal with Corpus luteum Lt ovary D1 2.8 cm Lt ovary D2 1.7 cm Lt ovary D3 1.4 cm Lt ovary mean 2.0 cm Lt ovary vol 3.6 cm cubed Pouch of Nicola / Other Structures Cul de Sac: Normal Free fluid: No free fluid visualized Method ======== Transvaginal ultrasound examination. View: Sufficient. Impression 1st Trimester OB scan ,transvaginal +[id number] There is no visualized gestational sac either in the uterus or in theadnexa, nor extrauterine mass. The patient does have a hx of a prior interstitial , and there isheterogeneous tissue extending towards the interstitium from the uterinecavity. Clinical correlation is suggested with serial hCG and consider a repeatscan in 5 days and as clinical hx allows. The adnexa appear normal. Follow-up Per the FIELD AIDE service. Comment ========= Results discussed w/patient. DATE OF SERVICE: 06/20/2020 David Martínez MD [facility] OB ORDERAB LES documented in this encounter Visit Diagnoses Diagnosis of unknown anatomic location state, incidental documented in this encounter
--- OUTSIDE RECORDS SUMMARY | 2023-12-16 00:40 | XMS_ITS | Encounter Summary ---
Author Organization [facility] Address [address] [place] [address] Care Team Providers Care Chainstitch Tunnel Elastic Operator Name Role Phone Unavailable Primary Care Provider Unavailabl e Encounter Details Date Type Department Care Team ([facility] Contact Info) Description 05/12/2020 Documentation Visit [facility] - [address] [place], [place] [address] Marcel Bustamante Social History Tobacco Use Types Packs/Day Years [...] have Coronavirus / COVID-19? No / Unsure 05/03/2020 21:18 EST documented as of this encounter Functional [...] as of this encounter Progress Notes * Marcel Bustamante - 05/12/2020 1616 EST Patient: Cristy Luo is a 35 y.o. female. Allergies: Citalopram, Other - see comments, and Advil [ibuprofen] LDA: Peripheral IV 05/03/20 2155 Left Antecubital (Active) Assessment: Discharge Date: 04/16/20 Admission date: 03/12/20 Reason for transfer or discharge: Therapy complete and met goals of treatment plan Provider aware and agrees to discharge/transfer (send summary upon request): Yes Patient aware and agrees to discharge/transfer : Yes Discharge/transfer needs shared with patient/caregiver(s), reason for discharge/transfer, alternatives to transfer, how to obtain continuing care, discharge instructions provided: Yes Medication Order Review Plan: Ms. Luo discharged from home infusion program. Her PICC line was dc'd By the [facility] on 04/21/2020 Documentation from 04/02/20 to 04/27/20 is on paper due to system outage. MARCEL BUSTAMANTE 05/12/2020 16:17 documented in this encounter Plan of Treatment Upcoming Encounters Date Type Department Care Team (Late st Contact Info) Description 02/21/2024 9:45 EDT Office Visit [facility] Adult Primary Care - [address] [address] Carrington Calderon MD [address] [phone] 02/27/2024 8:30 EDT Telemedicine [facility] Sleep Program - [address] [address] Rn, Sleep 02/29/2024 10:30 EDT Appointment [facility] Radiology Nuclear Medicine and PET [address] [address] 02/29/2024 14:30 EDT Appointment [facility] Radiology Nuclear Medicine and PET [address] [address] 03/01/2024 8:00 EDT Appointment [facility] Radiology Nuclear Medicine and PET [address] [address] 03/01/2024 9:30 EDT Appointment [facility] Radiology Nuclear Medicine and PET [address] [address] documented as of this encounter Visit Diagnoses Not on filedocumented in this encounter Discontinued Medications Medication Sig Discontinue Reason Start Date End Da te diphenhydrAMINE (BENADRYL) 50 mg capsule Take 1 Cap by mouth as needed for up to 1 dose (hives). Therapy completed 03/12/2020 05/12/2020 sodium chloride 0.9 %, flush, flush syringe For valved catheters (Groshong, Vaxcel, Solo PICC, Mid-line, and Groshong Chest Port): Flush all lumens with 10 mL every week if not in use. Flush 10 mL before and 10 mL after each medication dose (20 mL after vancomycin doses). Flush with 20 mL after blood draws. Dispense quantity sufficient. Therapy completed 03/12/2020 05/12/2020 documented as of this encounter
--- OUTSIDE RECORDS SUMMARY | 2023-12-16 00:40 | XMS_ITS | Encounter Summary ---
Author Organization [facility] Address [address] [place] [address] Care Team Providers Care Nps Name Role Phone Unavailable Primary Care Provider Unavailabl e Reason for Visit * Reason Onset Date Comments Other 06/17/2020 Encounter Details Date Type Department Care Team (Late st Contact Info) Description 06/17/2020 Telephone [facility] Foot & Ankle Program - [address] [address] Elza Navarro [address] [place] [phone] Other Social History Tobacco Use Types Packs/Day [...] encounter Miscellaneous Notes * Telephone Encounter - Swathi Tesfaye LPN - 06/17/2020 1011 EST Per direction of Dr. Navarro a call was made to Stella advising she continue the augmentin until she comes for her post op appointment on 06.25.20. SWATHI TESFAYE LPN documented in this encounter Plan of Treatment Upcoming Encounters Date Type Department Care Team (Late st Contact Info) Description 02/21/2024 9:45 EDT Office Visit [facility] [place] [address] Carrington Calderon MD [address] [phone] 02/27/2024 8:30 EDT Telemedicine [facility] Sleep Program - [address] [address] Rn, Sleep 02/29/2024 10:30 ED[facility] Nuclear Medicine and PET - [address] [phone] 02/29/2024 14:30 EDT Appointment [facility] Nuclear Medicine and PET - [address] [phone] 03/01/2024 8:00 EDT Appointment [facility] Radiology Nuclear Medicine and PET - [address] [phone] 03/01/2024 9:30 EDT Appointment [facility] Radiology Nuclear Medicine and PET - [address] [phone] documented as of this encounter Visit Diagnoses Not on filedocumented in this encounter
--- OUTSIDE RECORDS SUMMARY | 2023-12-16 00:40 | XMS_ITS | Encounter Summary ---
Author Organization [facility] Address [address] [place] [address] Care Team Providers Care Major Assembly Lineman Name Role Phone Unavailable Primary Care Provider Unavailabl e Reason for Visit * Reason Onset Date Comments Labs Only 06/05/2020 covid pre op scr eening Encounter Details Date Type Department Care Team (Late st Contact Info) Description 06/05/2020 Orders Only [facility] Foot & Ankle Program - [address] [address] Elza Navarro DPM [address] [place] [phone] Osteomyelitis of left foot, unspecified type ([facility]-CMS) (Primary Dx) Social History Tobacco Use Types [...] [facility] Adult Primary Care - [address] [phone] Carrington Calderon MD 1 [facility] [address] [place] [phone] 02/27/2024 8:30 EDT Telemedicine [facility] Sleep Program - [address] [phone] Rn, Sleep 02/29/2024 10:30 EDT Appointment [facility] Radiology Nuclear Medicine and PET - [address] [address] 02/29/2024 14:30 EDT Appointment [facility] Radiology Nuclear [facility] and [address] [address] 03/01/2024 8:00 EDT Appointment [facility] Nuclear [facility] and [address] [address] 03/01/2024 9:30 EDT Appointment [facility] and PET [address] [address] documented as of this encounter Results * COVID-19 TESTING (06/09/2020 9:28 EST) COVID-19 rt-PCR Result Negative Negative 06/09/2020 16:34 EST [facility] [...] history, and epidemiological information. Performed on the Regal[employer] Fusion instrument Performing Lab [place] [facility] Lab 06/09/2020 16:34 EST [facility] Swab ENTIRE NASOPHARYNX / Unknown Swab / Unknown 06/09/2020 9:28 EST 06/09/2020 9:28 EST Elza Navarro DPM MICROBIOLOGY - GENER AL ORDERABLES [facility] [address] [place] [address] documented in this encounter Visit Diagnoses Diagnosis Osteomyelitis of left foot, unspecified type (HCC-CMS)- Primary documented in this encounter
--- OUTSIDE RECORDS SUMMARY | 2023-12-16 00:40 | XMS_ITS | Encounter Summary ---
Author Organization [facility] Address [address] [place] [address] Care Team Providers Care Wigs Salesperson Name Role Phone Unavailable Primary Care Provider Unavailabl e Encounter Details Date Type Department Care Team (Latest Contact Info) Description 05/14/2020 Travel Social History Tobacco Use Types Packs/Day [...] have Coronavirus / COVID-19? No / Unsure 05/14/2020 14:17 EST documented as of this encounter Functional [...] Info) Description 02/21/2024 9:45 EDT Office Visit [facility] Adult Primary Care - [address] [phone] Carrington Calderon MD [address] [phone] 02/27/2024 8:30 EDT Telemedicine [facility] Sleep Program - [address] [address] Rn, Sleep 02/29/2024 10:30 EDT Appointment [facility] Radiology Nuclear Medicine and PET - [address] [address] 02/29/2024 14:30 EDT Appointment [facility] Radiology Nuclear Medicine and PET [address] [address] 03/01/2024 8:00 EDT Appointment [facility] Radiology Nuclear Medicine and PET [address] [phone] 03/01/2024 9:30 EDT [facility] and PET - [address] [address] documented as of this encounter Visit Diagnoses Not on filedocumented in this encounter
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
--- OUTSIDE RECORDS SUMMARY | 2023-12-16 00:40 | XMS_ITS | Encounter Summary ---
Author Organization [facility] Address [address] [place] [address] Care Team Providers Care Clothing Room Supervisor Name Role Phone Unavailable Primary Care Provider Unavailabl e Reason for Visit * Auth/Cert Specialty Diagnoses / Procedures Referred By Kit t Referred To Contact Diagnoses Encounter for sterilization Procedures RI LAP,RMV ADNEXAL STRUCTURE Laparoscopic Bilateral Salpingectomy Referral ID Status Reason Start Date Expiration Date Visits Re quested Visits Authorized [id number] 1 1 Encounter Details Date Type Department Care Team (Late st Contact Info) Description 06/16/2020 16:00 EST Anesthesia Event [facility] OR [address], [place] [id number] Mushtaq Vuong MD [address] [facility], [address] [place] [phone] Elliott Skinner MD Anesthesia Record Procedure Summary Procedure Name Responsible Anesthesiologist Anesthesia Start Time Anesthesia Stop Time Left great toe amputation (Left: First Toe) Mushtaq Vuong MD 06/16/20 1600 06/16/20 1644 Events Date Time Event Comment 06/16/2020 1600 An Start The patient was re-evaluated immediately before moderate or deep sedation use, before anesthesia induction, or before the anesthesia procedure. 1602 An Start Data 1604 Anesthesia Ready 1618 An Tourn Inflated Tourniquet Inflated - Location = lle, Pressure = 250 mmHg 1620 Po Pt c/o intolera ble pain with tourniquet inflation 1633 An Tourn Deflated Tourniquet Deflated - Duration = 17 minutes 1639 an stop data 1644 Handoff to RN I completed my handoff to the receiving nurse during which we: 1. Identified the patient 2. Identified the responsible provider 3. Reviewed the pertinent medical history 4. Discussed the surgical course 5. Reviewed intra-op anesthesia management and issues during anesthesia 6. Set expectations for post-procedure period 7. Allowed opportunity for questions and acknowledgement of understanding. 1644 An Stop Meds Name Total fentanyl citrate (PF) injection 100 mcg lidocaine 2% (PF) injection glass vial 6 0 mg propOFol (DIPRIVAN) injection 100 mg ceFAZolin (ANCEF) syringe 2 g 2,000 mg lactated ringers (LR) infusion 700 mL * Agents Name O2 N2O Air * Blood No blood administrations on file. Lines, Drains, and Airways Type Details Placement Removal Wound 03/06/20; 2300; Diab eti ul; Left, Posterior; Toe (Comment which one) (Big toe); Circular wound with red periwound. Tender and painful. Yellow/white wound bed. Serous drainage noted. SAMI.; Y; Partial thickness; 08/06/20; 0414 03/06/20 2300 by Marisa Barahona RN 08/06/20 0414 by Nanda Gibson, electric meter repairer apprentice 03/10/20; Abrasion; Right, Plantar; N; Partial thickness; 08/06/20; 0414 03/10/20 0000 by Mallorie Hayward RN 08/06/20 0414 by Nanda Gibson, MARCELO Peripheral IV 05/03/20; 2155; 20; Left; Antecubital; Inserted by RN; 1; 3.15% Chlorhexidine with IPA; 06/23/20; 0854; Removing documentation only, patient arrived without; No complications 05/03/20 215 by Ministerio Crowley RN 06/23/20 0854 by Marychuy Kaufman Wound 05/04/20; 0020; [place] eti ul; Left, Plantar; Toe (Comment which one) (left great toe); circular wound with white tissue in the middle of the wound bed; Y; 08/06/20; 0414 05/04/20 0020 by Sylvia Ruiz RN 08/06/20 0414 by Nanda Gibson RN Wound 06/16/20; 1630; Inci kedar; Left; Toe (Comment which one) (great toe); N; 08/06/20; 0414 06/16/20 1630 by Cherie Mayes RN 08/06/20 0414 by Nanda Gibson RN documented in this [...] No 05/04/2020 documented as of this encounter OR Notes * Anesthesia Postprocedure Evaluation - Carrington Pete CRNA - 06/16/2020 1644 EST Patient: Stella Luo Vital signs were reviewed with the recovery nurse. [facility] Vitals Value Taken Time BP 06/16/20 1644 Temp 06/16/20 1644 Resp 06/16/20 1644 Pulse From Oximetry 06/16/20 1644 SpO2 06/16/20 1644 Last Pain Score - Numeric Pain Level (Scale 1-10): 9 Type of Anesthesia - MAC Anesthesia Post Evaluation Level of consciousness: alert and oriented and awake Temperature status: normothermia Respiratory status: airway patent Cardiovascular status: acceptable Hydration status: adequate Nausea/Vomiting: none Pain management: adequate Post-Op Assessment: patient tolerated procedure well with no complications Patient participation: able to participate Disposition: outpatient/home Anesthesia Complications: No apparent anesthesia complications * Anesthesia Preprocedure Evaluation - Elliott Skinner MD - 06/16/2020 1550 EST Anesthesia Preprocedure Evaluation Patient Medical History, including Anesthesia History reviewed. Chart and Nursing Notes reviewed, including NPO status and Medication History. Additional ROS/History Findings: Allergies Allergen Reactions ??? Citalopram Other (See Comments) suicidal ideation, approx 2012 ??? Other - See Comments Swelling of throat pomergrante ??? Advil [Ibuprofen] Hives Review of Systems Constitutional: Negative. All other systems reviewed and are negative. Past Medical History: Diagnosis Date ??? Anxiety ??? Arthritis 12/05/19- Spine- told years ago ??? Depression ??? Diabetes ([facility]) A1c 10.3 on 11/28/2019 - poorly controlled ??? Difficulty opening mouth 06/13/2020 pain with opening mouth wide ??? Does not exercise 06/13/2020 due to infected toe ??? History of general anesthesia ??? Irritable bowel syndrome 06/13/2020 ? ? Nausea & vomiting occasionally ??? Obesity, unspecified ??? Osteomyelitis (HCC-CMS) of left great toe ??? Peripheral neuropathy 12/05/19- Bilateral feet ??? Skin problem 11/28/19- Per MD notes, left foot with redness and swelling, and open wound. WBC count 14.38. MRI today to rule out osteomyelitis. ??? Spontaneous miscarriage 09/04/201502/18, 08/19. Followed by Dr. López/[facility] in OBGYN Relevant Problems CARDIOVASCULAR (+) Migraine with aura and without status migrainosus, not intractable ENDO/GI (+) Type 2 diabetes mellitus (HCC-CMS) (+) Type 2 diabetes mellitus with diabetic polyneuropathy, with long-term current use of insulin (HCC-CMS) (+) 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 (HCC-CMS) Other (+) Osteomyelitis of great toe of left foot (HCC-CMS) (+) Osteomyelitis of toe of left foot (HCC-CMS) Physical Exam Airway Mallampati: II TM distance: >3 FB Neck ROM: full Cardiovascular Rhythm: regular Rate: normal Dental Pulmonary Breath sounds clear to auscultation Abdominal Anesthesia Plan ASA 2 Anesthesia Type - MAC Block for post-op pain? No Anesthesia plan and risks discussed. Informed consent obtained from patient. Code status discussed? No The preoperative history and physical which was performed within 30 days of this procedure, has been reviewed and the clinically appropriate elements of the physical examination have been repeated. There are no changes to the documented history and physical or, if so, such changes are documented inthis note According to hcg results the patient is . Reviewing her last menstrual cycle, it is likely that she is fewer than 6 weeks (last period was early May), so FHR will not be attainable. We discussed the risks and benefits, including the low risk of sedation while avoiding benzodiazipines and nitrous oxide and the fact that the surgery is low risk due to being far removed from her abdomen. Additionally, she has had poorly controlled DM that can worsen or may be more difficultto control while , which may contribute to worsening her toe infection. After discussing with her family, the anesthesia and surgical team, the patient decided to have the surgery. PAT Note (Notes from 05/17/20 through 06/16/20) PAT Note by Naomi Nava RN at 06/13/2020 9:49 Version 1 of 1 Cristy Luo has been instructed as follows regarding medication administration for the day ofthe scheduled procedure. Date of Surgery: 06/16/20 Instructions for Taking Medications Day of Surgery Medication Sig Last Dose Hold DOS Take DOS amoxicillin-clavulanate (AUGMENTIN) 875-125 mg per tablet Take 1 Tab by mouth every 12 hours. Yes gabapentin (NEURONTIN) 100 mg capsule Take 1 Cap by mouth 3 times daily. 1 tab AM, noon, 3 tabs in fiordaliza Yes insulin aspart U-100 (NOVOLOG FLEXPEN) 100 unit/mL (3 mL) injectable pen Inject 9 Units into the skin 3 times daily with meals. XX insulin glargine (LANTUS SOLOSTAR) 100 unit/mL (3 mL) injection pen Inject 30 Units into the skin at bedtime for 90 days. See note Yes Patient takes 40 units at bedtime. Instructed to take 32 units (80% of regular dose) the night before surgery per anesthesia protocol. Patient will call GUSTAVO Collado (Diabetes SAW OPERATOR) for any further questions regarding diabetes management pre op NAOMI NAVA RN PAT Note by Naomi Nava RN at 06/13/2020 9:47 Version 1 of 1 COVID 19 Screening Perioperative at time of PAT Please document by exception (only check those that apply). Have you had any of the following symptoms recently? Yes Yes Chronic ? Cough XX XX (due to decreasing smoking) Shortness of breath or difficulty breathing Fever [...] who has been diagnosed with Covid 19? No (close contact, within 6 feet of any [...] instruct them to call us back at [phone] to report symptoms (If patient is in [...] be allowed into Preop, OR, or PACU) documented in this encounter Plan of Treatment Upcoming Encounters Date Type Department Care Team (Late st Contact Info) Description 02/21/2024 9:45 EDT Office Visit [facility] Adult Primary Care - [address] [id number] Carrington Calderon MD [address] [phone] 02/27/2024 8:30 EDT Telemedicine [facility] Sleep Program - [address] [id number] Rn, Sleep 02/29/2024 10:30 EDT Appointment [facility] Nuclear Medicine and PET [address] [address] 02/29/2024 14:30 EDT Appointment [facility] Nuclear Medicine and PET [address] [id number] 03/01/2024 8:00 EDT Appointment [facility] Nuclear Medicine and PET [address] [address] 03/01/2024 9:30 EDT Appointment [facility] Nuclear Medicine and PET [address] [phone] documented as of this encounter Visit Diagnoses Not on filedocumented in this encounter Administered Medications Inactive Administered Medications - up to 3 most recent administrations Medication Order MAR Action Action Date Dose Rate Site ceFAZolin (ANCEF) syringe 2 g 2 g, intravenous, Administer over 10 Minutes, PRE-OP ONCE, 1 dose, On Tue06/16/20 at 1445, Routine, Preprocedure Given 06/16/2020 16:13 EST 2,000 mg fentaNYL citrate (PF) injection PRN, Starting on Tue06/16/20 at 1619, Until Tue06/16/20 at 1644, Routine, Anesthesia Intraprocedure Given 06/16/2020 16:19 EST 100 mcg lactated ringers (LR) infusion at 25 mL/hr, intravenous, CONTINUOUS, Starting on Tue06/16/20 at 1445, Until Tue06/16/20 at 1910, Routine, Preprocedure Continued by Anesthesia 06/16/2020 16:17 EST lidocaine (PF) 20 mg/mL (2 %) injection PRN, Starting on Tue06/16/20 at 1604, Until Tue06/16/20 at 1644, Routine, Anesthesia Intraprocedure Given 06/16/2020 16:04 EST 60 mg propOFol (DIPRIVAN) injection PRN, Starting on Tue06/16/20 at 1607, Until Tue06/16/20 at 1644, Routine, Anesthesia Intraprocedure Given 06/16/2020 16:10 EST 50 mg Given 06/16/2020 16:07 EST 50 mg documented in this encounter
--- OUTSIDE RECORDS SUMMARY | 2023-12-16 00:40 | XMS_ITS | Encounter Summary ---
Author Organization [facility] Address [address] [place] [address] Care Team Providers Care Brazer Helper Induction Name Role Phone Unavailable Primary Care Provider Unavailabl e Reason for Visit * Auth/Cert Specialty Diagnoses / Procedures Referred By Kit t Referred To Contact Diagnoses Encounter for sterilization Procedures CO LAP,RMV ADNEXAL STRUCTURE Laparoscopic Bilateral Salpingectomy Referral ID Status Reason Start Date Expiration Date Visits Re quested Visits Authorized [id number] 1 1 Encounter Details Date Type Department Care Team (Late st Contact Info) Description 06/16/2020 15:25 EST - 06/16/2020 16:40 EST Surgery [facility] [place] [facility] [address] [place] [id number] Elza Navarro DPM [address] [place] [phone] Left great toe amputation [88958 (CPT??)] Surgery Details Date/Time Status Location OR Service Patient Class Case Cl ass Case Type Trauma Case? 06/16/20 1525 Posted [facility] Outpatient Surgery H - Elective Panel 1 Procedure LRB Anes Op Region Wound Class Comments Left great toe amputation Left Monitored Anesthesia Care First Toe Class IV/ Dirty or Infected Surgeon Surgeon Role Service Panel Elza Navarro DPM Primary Orthopedics 1 Special Needs Foot Set, Patient already has surgical shoe documented in this encounter Social History Tobacco [...] 13:35 EST documented as of this encounter Last Filed Vital Signs Vital Sign Reading Time Taken Comments Blood Pressure 117/87 06/16/2020 1432 EST Pulse - - Temperature 36.5 ??C (97.7 ??F) 06/16/2020 1432 EST Respiratory Rate 16 06/16/2020 1432 EST Oxygen Saturation 100% 06/16/2020 1432 EST Inhaled Oxygen Concentration - - Weight 95.4 kg (210 lb 5.1 oz) 06/16/[address] Height 162.6 cm (5' 4) 06/16/2020 1432 EST Body Mass Index 36.1 06/16/2020 1432 EST documented in this encounter Functional Status [...] this encounter Discharge Instructions * Discharge Instructions* Elza Navarro, DPM - 06/16/2020 16:47 EST Patient Postoperative Care Instructions The following instructions should be followed in order to achieve the best potential outcome from your foot or ankle surgery and to keep you as comfortable as possible during the post-operative period. Ice and Elevation Icing and elevating your foot following surgery can have a direct effect on the amount of swelling and pain you experience. Ice can be used over the top of the foot/ankle (over the surgical dressing)or behind the knee. Do not apply directly to the skin. Ice should be applied 20 minutes at a time, in a 20 minutes on 20 minutes off cycle. Elevation simply means having your foot/ankle at or above the level of your heart. This will avoid pooling of surgical swelling in the foot/ankle, which decreases pain and improves healing time. Pain Control Although each patient handles pain differently, it is expected that most patients will have mild tomoderate pain following their foot/ankle surgery. Local anesthetic is commonly used during the surgery. Typically, the effect of the local anesthesia will last for a number of hours following the surgery as well. Your surgeon will provide you with medication to control pain after the local anesthetic wears off. Compliance with icing and elevation can significantly decrease postoperative pain. Rest Depending on the procedure performed, your surgeon will outline how long you will have to rest and/or stay off your feet. Some surgeries may allow for early activity while others will require strict non-weight bearing for a number of weeks. Plan on taking it easy. Ask friends and family to help youout and give your foot/ankle a chance to rest. Always remember that your ability to be compliant with rest can influence the final outcome of your foot/ankle surgery. Clean and Dry Dressings Your surgeon will perform all the surgical site dressing changes. When bathing, make every effort to keep you dressing dry. A wet dressing may increase the likelihood of infection. It goes without saying that your dressing should be kept as clean as possible. In general, the dressing will no longerbe utilized once your sutures are removed. Additional Instructions - 1. Weight bearing to left foot in surgical shoe. 2. Elevate left lower extremity on two pillows. 3. Leave dressing clean, dry, intact until follow up appointment with Dr. Navarro. 4. Continue antibiotics- augmentin- as instructed. Renewal sent to pharmacy today. 5. Take over the counter pain medications- tylenol- as needed and as instructed for pain. When should I contact my surgeon? ?? It is not unusual to see some blood penetrate the bandage. However, if the dressing becomes saturated, call your surgeon. ?? If your bandage gets wet by accident, it should be changed by your surgeon. ?? As described before, it is normal to have some postoperative pain. However, if the pain is not being controlled well enough with icing, elevation and/or medication, call your surgeon. ?? If you are not tolerating the postoperative medication as prescribed. If you have questions regarding your foot surgery, Dr. Navarro can be contacted during weekday officehours at [phone]. If there is an emergency, Dr. Navarro may also be contacted via pager by calling the [facility] at [phone] or [phone] (pager # [phone]). documented in this encounter Medications at Time [...] 06/13/2020 03/27/2021 documented as of this encounter Ordered Prescriptions Prescription Sig Dispensed Refills Start Date End Da te amoxicillin-clavulanate (AUGMENTIN) 875-125 mg per tablet Take 1 Tab by mouth 2 times daily for 7 days. 14 Tab 06/16/2020 06/23/2020 documented in this encounter Discharge Disposition Disposition Code Departure Means Destination Home or Self Care Wheelchair Home documented in this encounter Progress Notes * Silvia Mcdaniel RN - 06/16/2020 1444 EST Preop Covid DOS screening questionnaire Please document by exception (only check those that apply). Have you had any of the following symptoms recently?NO Yes Chronic ? Cough Shortness of breath or difficulty breathing Fever Chills Fatigue Muscle or body aches Severe Headache New loss of taste or smell Sore throat Congestion or runny nose Rash Nausea, vomiting, or diarrhea (rare in adults. More common in children) Were you covid tested?yes When: 06-09-2020 Results: negative If yes, have you self-isolated/quarantined since your test?no See admission vital signs documentation for admission temperature. documented in this encounter H&P Notes * Elza Navarro DPM - 06/16/2020 1552 EST The preoperative history and physical which was performed within 30 days of this procedure has been reviewed and the clinically appropriate elements of the physical examination have been repeated. There are no changes to the documented history and physical or if so such changes are documented below. Reviewed positive urine test- x 2, with Ms. Luo and anesthesia. Discussed risks and benefits of proceeding with surgery. She talked with her family and has decided to go ahead with surgery. Elza Navarro DPM 06/16/2020 15:52 Source Note - Tonja Alejandro PA-C - 06/13/2020 15:30 EST Images from the original note were not included. Preoperative H&P Date of Service: 06/13/2020 Chief Complaint Patient presents with ??? Pre-op Exam toe Planned Procedure: Left great toe amputation Surgeon: Dr. Navarro Planned Procedure Date: 06/16/2020 Problem List Available or Initiated: yes HISTORY OF PRESENT ILLNESS: Cristy Luo is a 35 y.o., female, who presents for preop evaluation for a left great toe amputation. She has a past medical history of poorly controlled type 2 diabetes, morbid obesity, and tobacco dependence. Patient was admitted in early March for great toe osteomyelitis. She had a bone biopsy completed which was polymicrobial ( MSSA,??GBS,??S.??anginosus, prevotella). She also had imaging which included an MRI which revealed first distal phalanx osteomyelitis and possible early proximal involvement.She was discharged on oral and IV antibiotics along. She actually did well during the month of April however, late April she was admitted again due to increasing pain and swelling in the region. Her CRP and white count was elevated. She was given a dose of Vanco and blood cultures were done and she was admitted to the hospital. She left AMA as she had to take care of one of her children. She then was started on Augmentin. Her last follow-up with podiatry was on 06/05/2020. Unfortunately the wound had gotten larger and does probe deep again. She recommended surgery for further management. Patient continues to follow-up with endocrine and last saw them on 06/05/2020. Her last A1c was 9.1. According to her lens grinder and polisher, patient is instructed to take 32 units which is 80% of her regular dose the night before surgery per anesthesia protocol. Prior h/o of anesthetic complications: no Prior h/o bleeding problems: no Prior h/o DVT/PE: no Family history of anesthetic complications, bleeding problems or DVT/PE: no. Cardiovascular or pulmonary risk factors: Diabetes Mellitus Active Problem List Patient Active Problem List [...] with long-term current use of insulin (HCC-CMS) PMH PSH Past Medical History: Diagnosis Date ??? Anxiety ??? Arthritis 12/05/19- Spine- told years ago ??? Depression ??? Diabetes (HCC-CMS) A1c 10.3 on 11/28/2019 - poorly controlled [...] ??? PILONIDAL CYST EXCISION Social History Family history Social History Tobacco [...] Outpatient Medications Medication Sig Dispense Refill ??? amoxicillin-clavulanate (AUGMENTIN) [...] 100 Each 5 No current facility-administered medications for this visit. Allergies Allergies Allergen Reactions ??? Citalopram Other (See Comments) suicidal ideation, approx 2012 ??? Other - See Comments Swelling of throat pomergrante ??? Advil [Ibuprofen] Hives Review of systems Negative Positive Details Constitutional X Cardiovascular X Respiratory X Gastrointestinal x Intermittent nausea from antibiotics CATTYMAN x History of multiple miscarriages Musculoskeletal x Great left toe infection Neurological X Psychiatric X Hematological/Lymphatic x Endocrine X Eyes X Ears,nose, mouth,throat, X Integumentary X Allergic/Immunologic X PHYSICAL EXAMINATION: BP 124/70 Pulse 68 Temp 36.4 ??C (97.6 ??F) (Tympanic) Resp 18 Wt 90.7 kg (200 lb) BMI 34.33 kg/m?? , Body mass index is 34.33 kg/m??. Organ system Negative Positive Not examined Details Constitution/General x EENT & Mouth x Neck/Thyroid x Skins,nodes, glands x Respiratory x Heart x Peripheral Vascular x Wound on great left toe Breasts and Axillae x Abdomen x Scrotum/testes x Pelvic x Rectal x Musculoskeletal x Neurologic x EKG: sinus rhythm. No ischemic changes IMPRESSION: No contraindications to planned surgery This is a 35-year-old female who presents for preop evaluation for a left great toe amputation. Patient has type 2 diabetes that is uncontrolled. Last hemoglobin A1c was 9.2. She is on insulin therapy for this. She was instructed to reduce her insulin to 32 units the night before her surgery. Patient also is down to smoking tobacco 4 cigarettes/day. EKG was within normal limits today and overall the patient has been feeling well. Patient will proceed with surgery as planned. Revised Cardiac Risk Index: 1 risk factors. Rate of cardiac and nonfatal myocardial infarction, cardiac arrest or ventricular fibrillation, pulmonary edema, and complete heart block: 2.2 to 6.6% PLAN: Patient requires endocarditis prophylaxis (see guideline summary below): not applicable. Perioperative beta-heather recommendation (see guideline summary below): no - betablocker not indicated. Proceed with surgery as planned. No food or liquids the morning of surgery. Call surgeon if develops respiratory illness, fever, or other illness. Stop all NSAID's 1 week prior to surgery. Stop all supplements 1 week prior to surgery. Continue all of your other medications as prescribed. Patient understands and agrees with the plan. Tonja Alejandro PA-C 06/13/2020 16:30 Revised Cardiac Risk Index (Martinez - six independent predictors of cardiac complications): 1. High risk surgery (vascular, intraperitoneal, intrathoracic) 2. History of CAD (history of NH or a positive ETT, current ischemic chest pain, use of nitrates, or Q waves on ECG with pathological Q waves. (Don't count previous CABG unless another of the factorsis present)) 3. Hx CHF 4. Hx Stroke 5. Cr >2.0 mg/dl 6. DM on insulin No risk factors 0.4 to 1.0% vs <1% when treated with beta blockers One to two risk factors 2.2 to 6.6% vs 0.8 to 1.6% when treated with beta blockers Three or more risk factors ----- >9% vs >3% when treated with beta blockers documented in this encounter Nursing Notes * Mallorie Marcial RN - 06/16/2020 5376 EST The Patient's Pre-Surgical/ Procedure test result is Positive. The Surgeon Dr. Navarro and the Anesthesiologist Have been Notified of the result. The Patient was counseled by anesthesia and Dr. Navarro regarding the Risks and Benefits of proceeding with the Surgery/ Procedure and Anesthesia. documented in this encounter OR Notes * OR Surgeon - Elza Navarro DPM - 06/16/2020 1335 EST OPERATIVE REPORT SERVICE DATE: 06/16/2020 SURGEON: Elza Navarro DPM COOKER HELPER: None. PREOPERATIVE DIAGNOSIS: Left great toe osteomyelitis. POSTOPERATIVE DIAGNOSIS: Left great toe osteomyelitis. PROCEDURE: Left great toe amputation. PATHOLOGY: 1. Left great toe, sent to pathology. 2. Left great toe bone, sent for culture. ANESTHESIA: MAC plus local consisting of a 1:1 mixture of 0.5% Marcaine plain and 1% lidocaine plain, given as a digital block. HEMOSTASIS: Pneumatic ankle tourniquet at 250 mmHg for 17 minutes. ESTIMATED BLOOD LOSS: Less than 5 mL MATERIALS: None. INJECTABLES: None. COMPLICATIONS: None. INDICATIONS: Ms Luo presents with a chronic ulcer on her left great toe, with a history of osteomyelitis. She has failed long-term courses of both IV and p.o. antibiotics as well as offloading and wound care and has elected to proceed with amputation of the toe at this time. We discussed all risks and benefits of this as well as the expected postoperative course. It should be noted that, in thepreoperative area, she did have a positive urine test prior to surgery on the day of surgery, and this was discussed at length with Stella as well as the anesthesiologist on the case. The risks and benefits of proceeding with surgery were discussed at length with her, and she elected to proceed with amputation of the toe at this time. Consent was obtained. She was taken to the operating room. NARRATIVE: Under mild sedation, the patient was brought into the operating room and placed on the operative table in the supine position. A pneumatic ankle tourniquet was placed about the left ankle.Following IV sedation, local anesthesia was obtained about the left foot utilizing a 1:1 mixture of0.5% Marcaine plain and 1% lidocaine plain. The foot was then scrubbed, prepped and draped in the usual aseptic manner. An Esmarch bandage was not used due to the presence of infection. The foot was elevated and the tourniquet was inflated at this time. Attention was directed to the left foot. A skin marker was used to zandra the incision, making a racquet-type incision just distal to the metatarsophalangeal joint. This was made directly down to bone.The toe was disarticulated at the metatarsophalangeal joint and passed from the operative field. A sample was taken of the underlying bone for culture, and the remainder of the toe was sent to pathology. The amputation site was then evaluated. The metatarsal head appeared viable, and all proximal tissue appeared viable, with good bleeding tissue noted. There were no proximal signs of infection. The area was then flushed with copious amounts of normal sterile saline. The deep tissue was reapproximated and coapted utilizing 3-0 and 4-0 Vicryl suture, and the skin was reapproximated and coapted utilizing nylon suture. The tourniquet was let down prior to skin closure, with 17 minutes noted to have elapsed. A Xeroform dressing was applied to the incision line. A dry, sterile gauze dressing was applied, and a light Dillon bandage was applied. The patient tolerated the procedure and anesthesia well. She was transferred to the recovery room, with vital signs stable and vascular status intact to all remaining toes of the left foot. Followinga period of postoperative monitoring, she will be discharged home with written and oral postoperative instructions. Her antibiotic course was discussed with her infectious disease doctor, Dr Light,to confirmed appropriateness of continuing her on Augmentin for 1 week postoperatively, given her , and this was continued. We also discussed postoperative pain management, and I advised Ms Luo to avoid any medications for pain. However, if having uncontrolled pain, it is okay to take Tylenol as instructed. Unless otherwise noted, there were no complications, no blood loss, no cultures obtained, no specimens removed, and no drains retained. Elza Navarro DPM / DC Confirmation: [id number] Dictation ID: [id number] cc: documented in this encounter Miscellaneous Notes * Brief Op Note - Elza Navarro DPM - 06/16/2020 1644 EST Date: 06/16/2020 Location: [facility] OR Name: Cristy Luo, : 1985, Diagnosis Pre-op Diagnosis * Osteomyelitis of toe of left foot ([facility]) [M86.9] * Type 2 diabetes mellitus with diabetic polyneuropathy, with long-term current use of insulin ([facility]) [E11.42, Z79.4] Post-op Diagnosis * Osteomyelitis of toe of left foot ([facility]) [M86.9] * Type 2 diabetes mellitus with diabetic polyneuropathy, with long-term current use of insulin ([facility]) [E11.42, Z79.4] Procedures Left great toe amputation 29141 - CO AMPUTATION TOE,MT-P JT Surgeons * Elza Navarro DPM - Primary Procedure Summary Anesthesia: Monitor Anesthesia Care ASA: ASA status not filed in the log. Estimated Blood Loss: < 5 cc Total IV Fluids: per anesthesia Staff: Inter Fold Roll Cutter: Cherie Mayes RN Scrub Person: Arturo Pelletier Patient Split Leather Department Supervisor: Carlita Charles Indications: Stella Luo is an 35 y.o. female who is having surgery for left great toe osteomyelitis. Findings: Tolerated procedure and anesthesia well. Transferred to recovery room with vital signs stable and vascular status intact. See op report for full details. Complications: None; patient tolerated the procedure well. Disposition: PACU - hemodynamically stable. Condition: stable Specimens Collected: Order Name Source Comment Collection Info Order Time ANAEROBE CULTURE/SMEAR(INC. AEROBES), OTHER Soft Tissue Left great toe osteomyelitis Collected By: Elza Navarro DPM 06/16/2020 16:27 POCT TEST, CLINITEK ORDER Urine, Clean Catch 06/16/2020 14:22 Attending Attestation: I was present and scrubbed for the entire procedure Elza Navarro DPM * PAT Note - Naomi Nava RN - 06/13/2020 0949 EST Cristy Luo has been instructed as [...] protocol. Patient will call GUSTAVO Collado (Diabetes [place]) for any further questions regarding diabetes management pre op NAOMI NAVA RN * PAT Note - Naomi Nava RN - 06/13/2020 09 EST COVID 19 Screening Perioperative at time [...] instruct them to call us back at [phone] to report symptoms (If patient is in [...] [facility] - [address] [id number] Carrington Calderon MD 1 [facility] [address] [place] [phone] 02/27/2024 8:30 EDT Telemedicine [facility] Sleep Program - [address] [phone] Rn, Sleep 02/29/2024 10:30 EDT Appointment [facility] Radiology Nuclear Medicine and PET - [address] [address] 02/29/2024 14:30 EDT Appointment [facility] Nuclear Medicine and PET [address] [address] 03/01/2024 8:00 EDT Appointment [facility] Nuclear Medicine and PET [address] [address] 03/01/2024 9:30 EDT Appointment [facility] Nuclear Medicine and PET [address] [address] Pending Results Name Type Priority Associated Diagnoses Date /Time POCT TEST, CLINITE K ORDER Lab STAT 06/16/2020 14:22 EST documented as of this encounter Procedures Procedure Name Priority Date/Time Associated Diagnosis Comments PATHOLOGY - SCANNED 06/20/2020 11:10 EST SURGICAL PATHOLOGY Routine 06/16/2020 16 :21 EST ANAEROBE CULTURE/SMEAR(INC. AEROBES), OTHER Routine 06/16/2020 16:21 EST AMPUTATION, TOE, AT MTP JOINT 06/16/2020 15:49 EST Osteomyelitis of toe of left foot ([facility]) Type 2 diabetes mellitus with diabetic polyneuropathy, with long-term current use of insulin ([facility]) Special Needs Foot Set, Patient already has surgical shoe POCT GLUCOSE, INTERFACED Routine 06/16/2020 14:40 EST POCT CSN BARCODE URINE PREG TEST STAT 06/16/2020 14:22 EST documented in this encounter Results * PATHOLOGY - SCANNED (06/20/2020 11:10 EST) 06/20/2020 11:1 0 EST Scan 2 [employer] Wire Finisher LAB INFO SERVICE AN D SUPPORT & PHONE RESULT * SURGICAL PATHOLOGY (06/16/2020 16:21 EST) Final Diagnosis A. TOE, LEFT GREAT, AMPUTATION: - Acute osteomyelitis. - Disarticulated joint with no gross evidence of acute osteomyelitis. - Skin with ulceration and acute cellulitis. 06/19/2020 15:19 [facility] Attestation There was significant resident/fellow involvement in the diagnostic evaluation of this case. By the signature below, the attending physician certifies that they have personally conducted a gross and/or microscopic examination of the described specimens and rendered or confirmed the above diagnosis. 06/19/2020 15:19 [facility] at 1519 Clinical History Left great toe osteomyelitis 06/19/2020 15:19 [facility] Gross Description A. Received in normal saline labelled with proper patient identification (initials Y, E) and left great toe is a single digit (6.5 x 3.2 x 2.4 cm) that has been disarticulated from the metatarsophalangea l joint. At the plantar, proximal aspect of the skin is a 1.0 x 0.9 x 0.5 cm defect, at the skin and soft tissue margins, inked black. The epidermal surface is colunga-pink and wrinkled with a minimal amount of skin desquamation at the distal lateral aspect. The unguis is pale yellow firm and unremarkable. Environmental Compliance Technician sections are submitted as follows: BLOCK SHIELDS A1-A2- underlying bone, acid decalcification A3- defect to skin and soft tissue margins EUNICE GUAJARDO(ASCP) 06/17/2020 11:11 06/19/2020 15:19 [facility] Resident/Cash w: Emory Nazario DO 06/19/2020 15:19 [facility] Performing Lab [facility] 15:19 [facility] Scanned Images 06/19/2020 15:19 [facility] Tissue AMPUTATION / Unknown 06/16/2020 16:21 EST 06/16/2020 21:33 EST Comment:Left great toe osteo myelitis Elza M Stone DPM PATHOLOGY ORDERABLES Performing Organization Address [facility]/ZIP Co de Phone Number [facility] [address] [place] [address] * (ABNORMAL) ANAEROBE CULTURE/SMEAR(INC. AEROBES), OTHER (06/16/2020 16:21 EST) Organism ID Moderate Streptococcus agalactiae(A) 1 8:41 [facility] Comment:Penicillin and ampic illin are drugs of choice for treatment of beta hemolytic streptococcal infections. Organism ID Few Staphylococcus aureus(A) VITEK SUSCEPTIBILITY 1 8:41 [facility] Comment:Susceptible to nafci llin, cephalosporins and other beta lactam antibiotics (mecA gene product absent). Organism ID Few Gram-Positive Rods Aerobic (Group) 1 8:41 [facility] Organism ID Rare Prevotella bivia(A) 1 8:41 [facility] Organism ID Few Anaerococcus tetradius(A) 1 8:41 [facility] Smear Many Neutrophils Present 1 8:41 [facility] Smear Moderate Gram Positive Cocci 1 8:41 [facility] Bone ENTIRE TOE / Unknown 06/16/2020 16:21 EST 06/16/2020 17:07 EST Comment:Left great toe osteo myelitis Narrative Organism Antibiotic Method Susceptibility Staphylococcus aureus Cefazolin VITEK SUSCEPTIBILIT Y Deduced Susceptible Staphylococcus aureus Clindamycin VITEK SUSCEPTIBILIT Y 0.25 ug/mL: Susceptible Staphylococcus aureus Erythromycin VITEK SUSCEPTIBILIT Y >=8 ug/mL: Resistant Staphylococcus aureus Oxacillin VITEK SUSCEPTIBILIT Y 1 ug/mL: Susceptible Staphylococcus aureus Trimethoprim-Sulfa me thoxazole VITEK SUSCEPTIBILITY <=10 ug/mL: Susceptible Staphylococcus aureus Tetracycline VITEK SUSCEPTIBILIT Y <=1 ug/mL: Susceptible Staphylococcus aureus Vancomycin VITEK SUSCEPTIBILIT Y <=0.5 ug/mL: Susceptible Elza Navarro DPM MICROBIOLOGY - GENER AL ORDERABLES [facility] [address] [place] [address] * (ABNORMAL) POCT GLUCOSE, INTERFACED (06/16/2020 14:40 EST) Glucose, POC 166(H) 70 - 100 mg/dL 06/16/2020 14:43 EST [facility] oceanographer geological ID [id number] 06/16/2020 14:43 EST [facility] HN LAB POC COMMENT (GLUCOSE) Test Performed by Nursing Services 06/16/2020 14:43 EST [facility] Blood CAPILLARY BLOOD / Unknown 06/16/2020 14:40 EST 06/16/2020 14:43 EST Elza Navarro DPM POINT OF CARE TEST O RDERABLES Performing Organization Address City/[facility]/ZIP Co de Phone Number [facility] [address] [place] [address] * POCT CSN BARCODE URINE PREG TEST (06/16/2020 14:22 EST) Hold Hold 06/16/2020 16:30 EST [facility] Urine URINE SPECIMEN COLLECTION, CLEAN CATCH / Unknown 06/16/2020 14:22 EST 06/16/2020 14:22 EST Tiff Salcedo MD LAB INFO SERVICE AND SUPPORT & PHONE RESULT [facility] [address] [place] [address] documented in this encounter Visit Diagnoses Diagnosis Osteomyelitis of left foot, unspecified type (HCC-CMS) Osteomyelitis of toe of left foot (HCC-CMS) Unspecified osteomyelitis, ankle and foot Type 2 diabetes mellitus with diabetic polyneuropathy, with long-term current use of insulin (HCC-CMS) Osteomyelitis of toe of left foot (HCC-CMS) Unspecified osteomyelitis, ankle and foot Type 2 diabetes mellitus with diabetic polyneuropathy, with long-term current use of insulin ([facility]) documented in this encounter Admitting Diagnoses Diagnosis Osteomyelitis of toe of left foot (HCC-CMS) Unspecified osteomyelitis, ankle and foot Type 2 diabetes mellitus with diabetic polyneuropathy, with long-term current use of insulin ([facility]) documented in this encounter Administered Medications Inactive Administered Medications - up to 3 most recent administrations Medication Order MAR Action Action Date Dose Rate Site lactated ringers (LR) infusion at 25 mL/hr, intravenous, CONTINUOUS, Starting on Tue06/16/20 at 1445, Until Tue06/16/20 at 1910, Routine, Preprocedure Continued by Anesthesia 06/16/2020 16:17 EST lidocaine 1 % 30 mL, bupivacaine (PF) (MARCAINE) 30 mL As needed, Starting on Tue06/16/20 at 1611, Until Tue06/16/20 at 1619, Routine, Intraprocedure Given 06/16/2020 16:11 EST 8 mL Other documented in this encounter Active and Recently Administered Medications Times are shown in EST. Scheduled Medication Order 06/14/2020 06/15/2020 06/16/2020 ceFAZolin (ANCEF) syringe 2 g (COMPLETED) 2 g, intravenous, Administer over 10 Minutes, PRE-OP ONCE, 1 dose, On Tue06/16/20 at 1445, Routine, Preprocedure 1613 (Given - Provid er: Carrington Pete CRNA) Continuous Medication Order 06/14/2020 06/15/2020 06/16/2020 lactated ringers (LR) infusion at 25 mL/hr, intravenous, CONTINUOUS, Starting on Tue06/16/20 at 1445, Until Tue06/16/20 at 1910, Routine, Preprocedure 1445 (Canceled Entry - Provider: Scott Job User Admin - Comment: Automatically canceled at discontinue of medication order)1617 (Continued by Anesthesia - Provider: Carrington Pete CRNA)1644 (Anesthesia Volume Adjustment - Provider: Carrington Pete CRNA) PRN Medication Order 06/14/2020 06/15/2020 06/16/2020 lidocaine 1 % 30 mL, bupivacaine (PF) (MARCAINE) 30 mL (CANCELED) As needed, Starting on Tue06/16/20 at 1611, Until Tue06/16/20 at 1619, Routine, Intraprocedure 1611 (Given - Provid er: Elza Navarro DPM - Comment: Left foot) documented in this encounter Orders Medications Ordered That Stan ht Not Have Been Administered Count Last Ordered Date First Ordered Date ceFAZolin (ANCEF) syringe 2 g 1 06/16/2020 dextrose 50 % solution 12.5 g 1 06/16/2020 glucagon injection 1 mg 1 06/16/2020 lactated ringers (LR) infusion 1 06/16/2020 lidocaine (PF) 10 mg/mL (1 % ) injection 2 mg 1 06/16/2020 Transfer Count Last Ordered Date First Orde red Date TEACHING SERVICE 1 06/16/2020 Discharge Count Last Ordered Date First Orde red Date DISCHARGE PATIENT 1 06/16/2020 documented in this encounter
--- OUTSIDE RECORDS SUMMARY | 2023-12-16 00:40 | XMS_ITS | Encounter Summary ---
Author Organization [facility] Address [address] [place] [address] Care Team Providers Care Automobile Bumper Straightener Name Role Phone Unavailable Primary Care Provider Unavailabl e Reason for Visit * Auth/Cert Specialty Diagnoses / Procedures Referred By Contac t Referred To Contact Diagnoses Encounter for sterilization Procedures NE LAP,RMV ADNEXAL STRUCTURE Laparoscopic Bilateral Salpingectomy Referral ID Status Reason Start Date Expiration Date Visits Re quested Visits Authorized [id number] 1 1 Encounter Details Date Type Department Care Team (Latest Contact Info) Description 06/16/2020 13:35 EST - 06/16/2020 17:05 [facility] Hospital Encounter [facility] [place] [address] [place] [address] Elza Navarro DPDickson [address] [place] [phone] Osteomyelitis of left foot, unspecified type ([facility]) Discharge Disposition: Home or Self Care [...] Sign Reading Time Taken Comments Blood Pressure 108/72 06/16/2020 1647 EST Pulse - - Temperature 36.1 ??C (97 ??F) 06/16/2020 1647 EST Respiratory Rate 16 06/16/2020 1432 EST Oxygen Saturation 100% 06/16/2020 1647 EST Inhaled Oxygen Concentration - - Weight [...] Discharge Instructions * Discharge Instructions* Elza Navarro, KIRILL - 06/16/2020 16:47 EST Patient Postoperative Care [...] can be contacted during weekday officehours at [phone]. If there is an emergency, Dr. Navarro may also be contacted via pager by calling the [facility] at [phone] or [phone] (pager # [phone]). documented in this encounter Medications at Time [...] last A1c was 9.1. According to her director of analytics, patient is instructed to take 32 units [...] with long-term current use of insulin (HCC-CMS) H PSH Past Medical History: Diagnosis Date ??? Anxiety ??? Arthritis 12/05/19- Spine- told years ago ??? Depression ??? Diabetes ([facility]) A1c 10.3 on 11/28/2019 - poorly [...] to rule out osteomyelitis. ??? Spontaneous miscarriage 09/04/201515, 08/19. Followed by Dr. López[facility] in OBGYN [...] X Gastrointestinal x Intermittent nausea from antibiotics NURSE TRANSPLANT x History of multiple miscarriages Musculoskeletal x [...] intrathoracic) 2. History of CAD (history of MO or a positive ETT, current ischemic chest [...] Notes * Mallorie Marcial RN - 06/16/2020 1545 EST The Patient's Pre-Surgical/ Procedure test result [...] SERVICE DATE: 06/16/2020 SURGEON: Elza Navarro DPM [place]: None. PREOPERATIVE DIAGNOSIS: Left great toe osteomyelitis. [...] retained. Elza Navarro DPM / DC Confirmation: [id number] Dictation ID: [id number] cc: documented in this encounter Miscellaneous Notes * Brief Op Note - Elza Navarro DPM - 06/16/2020 1644 EST Date: 06/16/2020 Location: [facility] OR Name: Cristy Luo, : 1985, Diagnosis Pre-op Diagnosis * Osteomyelitis of toe of left foot ([facility]) [M86.9] * Type 2 diabetes mellitus with diabetic polyneuropathy, with long-term current use of insulin ([facility]) [E11.42, Z79.4] Post-op Diagnosis * Osteomyelitis of toe of left foot ([facility]) [M86.9] * Type 2 diabetes mellitus with diabetic polyneuropathy, with long-term current use of insulin ([facility]) [E11.42, Z79.4] Procedures Left great toe amputation 11828 - NE AMPUTATION TOE,MT-P JT Surgeons * Elza Navarro DPM - Primary Procedure Summary Anesthesia: Monitor Anesthesia Care ASA: ASA status not filed in the log. Estimated Blood Loss: < 5 cc Total IV Fluids: per anesthesia Staff: Eyeglass Lens Cutter: Cherie Mayes RN Scrub Person: Arturo Pelletier Patient Bag Printer: Carlita Charles Indications: Stella Luo is an [...] protocol. Patient will call GUSTAVO Collado (Diabetes MANAGER TRANSITION) for any further questions regarding diabetes management pre op NAOMI NAVA RN * PAT Note - Naomi Nava RN - 06/13/2020 9817 EST COVID 19 Screening Perioperative at time [...] instruct them to call us back at [phone] to report symptoms (If patient is in [...] [facility] - [address] [id number] Carrington Calderon MD [address] [phone] 02/27/2024 8:30 EDT Telemedicine [facility] Sleep Program - [address] [address] Rn, Sleep 02/29/2024 10:30 EDT Appointment [facility] Radiology Nuclear Medicine and PET - [address] [phone] 02/29/2024 14:30 EDT Appointment [facility] Radiology Nuclear Medicine and PET - [address] [id number] 03/01/2024 8:00 EDT Appointment [facility] Radiology Nuclear Medicine and PET - [address] [address] 03/01/2024 9:30 EDT Appointment [facility] Radiology Nuclear Medicine and PET - [address] [address] Pending Results Name Type Priority Associated Diagnoses [...] EST Osteomyelitis of toe of left foot ([facility]) Type 2 diabetes mellitus with diabetic polyneuropathy, with long-term current use of insulin ([facility]) Special Needs Foot Set, Patient already has surgical shoe POCT GLUCOSE, INTERFACED Routine 06/16/2020 14:40 EST POCT CSN BARCODE URINE PREG TEST STAT 06/16/2020 14:22 EST documented in this encounter Results * PATHOLOGY - SCANNED (06/20/2020 11:10 EST) 06/20/2020 11:1 0 EST Scan 2 [employer] LAB INFO SERVICE AN D SUPPORT & PHONE RESULT * SURGICAL PATHOLOGY (06/16/2020 16:21 EST) Final Diagnosis A. TOE, LEFT GREAT, AMPUTATION: - Acute osteomyelitis. - Disarticulated joint with no gross evidence of acute osteomyelitis. - Skin with ulceration and acute cellulitis. 06/19/2020 15:19 EST [facility] Attestation There was significant resident/fellow involvement in the diagnostic evaluation of this case. By the signature below, the attending physician certifies that they have personally conducted a gross and/or microscopic examination of the described specimens and rendered or confirmed the above diagnosis. 06/19/2020 15:19 [facility] at 1519 Clinical History Left great toe osteomyelitis 06/19/2020 15:19 [facility] Gross Description A. Received [...] unguis is pale yellow firm and unremarkable. Cosmetics Demonstrator sections are submitted as follows: BLOCK SHIELDS A1-A2- underlying bone, acid decalcification A3- defect to skin and soft tissue margins EUNICE GUAJARDO(ASCP) 06/17/2020 11:11 06/19/2020 15:19 [facility] Resident/Cash w: Emory Nazario DO 06/19/2020 15:19 [facility] Performing Lab [facility] 15:19 [facility] Scanned Images 06/19/2020 15:19 [facility] Tissue AMPUTATION / Unknown 06/16/2020 16:21 EST 06/16/2020 21:33 EST Comment:Left great toe osteo myelitis Elza Navarro DPDickson PATHOLOGY ORDERABLES [facility] [address] [place] [address] * (ABNORMAL) ANAEROBE CULTURE/SMEAR(INC. AEROBES), OTHER (06/16/2020 16:21 EST) Organism ID Moderate Streptococcus agalactiae(A) 8:41 [facility] Comment:Penicillin and ampic illin are drugs of choice for treatment of beta hemolytic streptococcal infections. Organism ID Few Staphylococcus aureus(A) VITEK SUSCEPTIBILITY 1 8:41 [facility] Comment:Susceptible to nafci llin, cephalosporins and other beta lactam antibiotics (mecA gene product absent). Organism ID Few Gram-Positive Rods Aerobic (Group) 1 8:41 [facility] Organism ID Rare Prevotella bivia(A) 1 8:41 [facility] Organism ID Few Anaerococcus tetradius(A) 1 8:41 [facility] Smear Many Neutrophils Present 1 8:41 [facility] Smear Moderate Gram Positive Cocci 1 8:41 [facility] Bone ENTIRE TOE / Unknown [...] Navarro DPM MICROBIOLOGY - GENER AL ORDERABLES [facility] [address] [place] [address] * (ABNORMAL) POCT GLUCOSE, INTERFACED (06/16/2020 14:40 EST) Glucose, POC 166(H) 70 - 100 mg/dL 06/16/2020 14:43 [facility] sports medicine masseur ID [id number] 06/16/2020 14:43 [facility] HN LAB POC COMMENT (GLUCOSE) Test Performed by Nursing Services 06/16/2020 14:43 EST [facility] Blood CAPILLARY BLOOD / Unknown 06/16/2020 14:40 EST 06/16/2020 14:43 EST Elza Forman Ramon DPM POINT OF CARE TEST O RDERABLES Performing Organization Address [facility] Co de Phone Number [facility] [address] [place] [address] * POCT CSN BARCODE URINE PREG TEST (06/16/2020 14:22 EST) Hold Hold 06/16/2020 16:30 EST [facility] Urine URINE SPECIMEN COLLECTION, CLEAN CATCH / Unknown 06/16/2020 14:22 EST 06/16/2020 14:22 EST Tiff Salcedo MD LAB INFO SERVICE AND SUPPORT & PHONE RESULT Performing Organization Address City/[facility] Co de Phone Number [facility] [address] [place] [address] documented in this encounter Visit Diagnoses Diagnosis Osteomyelitis of left foot, unspecified type (HCC-CMS) Osteomyelitis of toe of left foot (HCC-CMS) Unspecified osteomyelitis, ankle and foot Type 2 diabetes mellitus with diabetic polyneuropathy, with long-term current use of insulin ([facility]) documented in this encounter Admitting Diagnoses Diagnosis [...] Preprocedure Continued by Anesthesia 06/16/2020 16:17 EST documented in this encounter Active and Recently [...] % ) injection 2 mg 1 06/16/2020 lidocaine 1 % 30 mL, bupivac nancy (PF) (MARCAINE) 30 mL 1 06/16/2020 Transfer Count Last Ordered Date First Orde red Date TEACHING SERVICE 1 06/16/2020 Discharge Count Last Ordered Date First Orde red Date DISCHARGE PATIENT 1 06/16/2020 documented in this encounter
--- OUTSIDE RECORDS SUMMARY | 2023-12-16 00:40 | XMS_ITS | Encounter Summary ---
Author Organization [facility] Address [address] [place] [address] Care Team Providers Care Irradiated Fuel Handler Name Role Phone Unavailable Primary Care Provider Unavailabl e Encounter Details Date Type Department Care Team (Latest Contact Info) Description 05/06/2020 Travel Social History Tobacco Use Types Packs/Day [...] [facility] - [address] [phone] Carrington Calderon MD [address] [phone] 02/27/2024 8:30 EDT Telemedicine [facility] Sleep Program - [address] [address] Rn, Sleep 02/29/2024 10:30 EDT Appointment [facility] Radiology Nuclear Medicine and PET - [address] [phone] 02/29/2024 14:30 EDT Appointment [facility] Radiology Nuclear Medicine and PET [address] [phone] 03/01/2024 8:00 EDT Appointment [facility] Radiology Nuclear Medicine and PET [address] [phone] 03/01/2024 9:30 EDT [facility] Nuclear Medicine and PET - [address] [address] documented as of this encounter Visit Diagnoses Not on filedocumented in this encounter
--- OUTSIDE RECORDS SUMMARY | 2023-12-16 00:40 | XMS_ITS | Encounter Summary ---
Author Organization [facility] Address [address] [place] [address] Care Team Providers Care Metallographic Technician Name Role Phone Unavailable Primary Care Provider Unavailabl e Reason for Visit * Reason Comments Foot Problem Encounter Details Date Type Department Care Team (Latest Contact Info) Description 06/05/2020 10:30 EST Office Visit [facility] Foot & Ankle Program - [address] [place] [address] Elza Navarro DPM [address] [place] [phone] Osteomyelitis of toe of left foot ([facility]) (Primary Dx); Type 2 diabetes mellitus with diabetic polyneuropathy, with long-term current use of insulin ([facility]) Social History Tobacco Use Types Packs/Day Years [...] as of this encounter Progress Notes * Brynn Lopez LPN - 06/05/2020 1030 EST Patient Education Topic: Pre-op and Post-op care for left great toe amputation Method: Handout and Verbal Taught to: Patient Barriers: None Outcomes: independent and verbalized understanding Brynn Lopez LPN * Elza Navarro DPM - 06/05/2020 1030 EST Cristy Luo is a very pleasant 35 y.o. female patient who presents for follow up chronic leftgreat toe ulcer with history of osteomyelitis. She reports that over the last week she has had someincreased drainage off and on as well as increased swelling. This has gotten better today. She believes the wound has gotten larger as well. She has been taking the Augmentin. She reports that she has been using the knee scooter and staying off the foot mostly. Overall she is feeling well today denies nausea, vomiting, fever, chills. Patient Active Problem List Diagnosis Date Noted ??? 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 ([facility]) 05/03/2020 Priority: Medium ??? Osteomyelitis of great toe of left foot ([facility]) 03/12/2020 Priority: Medium ??? Diabetic foot ulcer associated with diabetes mellitus due to underlying condition ([facility]) 03/07/2020 Priority: Medium ??? Diabetic foot infection ([facility]) 03/06/2020 Priority: Medium ??? Diabetic foot ulcer ([facility]) 03/06/2020 Priority: Medium ??? Cellulitis of great toe of left foot 11/26/2019 Priority: Medium ??? Chronic midline low back pain without sciatica 11/26/2019 Priority: Medium ??? Chronic left ear pain 09/04/2015 Priority: Medium ??? Encounter for sterilization 11/20/2019 ??? Family history of rheumatoid arthritis 09/04/2015 ??? Type 2 diabetes mellitus ([facility]) 09/03/2015 ??? Anxiety and depression 05/12/2010 ??? Migraine with aura and without status migrainosus, not intractable Past Medical History: Diagnosis Date ??? Anxiety ??? Arthritis 12/05/19- Spine- told years ago ??? Diabetes ([facility]) A1c 10.3 on 11/28/2019 ??? History of general anesthesia ? ? Nausea & vomiting ??? Obesity, unspecified ??? Peripheral neuropathy 12/05/19- Bilateral feet ??? Skin problem 11/28/19- Per MD notes, left foot with redness and swelling, and open wound. WBC count 14.38. MRI today to rule out osteomyelitis. ??? Spontaneous miscarriage 09/04/201502/18, 08/19. Followed by Dr. López[facility] in O[facility] Past Surgical History: Procedure Laterality Date ??? 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 DILATION AND CURETTAGE OF UTERUS ??? [...] 2 Binge frequency: Never Comment: very rare Family History Problem Relation Age of Onset ??? Diabetes Mother ??? Diabetes Maternal Grandmother ??? Diabetes Maternal Grandfather ??? Diabetes Paternal Grandmother ??? Diabetes Paternal Grandfather Current Outpatient Medications Medication Sig Dispense Refill [...] not taken for this visit. PHYSICAL EXAM: General:??AO x 3, NAD Lower extremity:??LLE:??Palpable pedal pulses. ??Skin temperature gradient within normal limits. ??Capillary filling time less than 3 seconds to all toes. ??Ulcer plantar left great toe.??Measures??5x 5 x 5 mm. Moderate surrounding hyperkeratotic tissue.??Probes deep with question of probe to bone.??Granular wound base. ??No undermining. ??No purulence. ??No surrounding erythema. Very mild edema. No pain on probing.??No malodor. ??No necrosis. ??Able to extend the toe. ??Unable to flex the toe. ??Protective sensation diminished. ASSESSMENT: 1. Osteomyelitis of toe of left foot ([facility]) CASE REQUEST OPERATING ROOM 2. Type 2 diabetes mellitus with diabetic polyneuropathy, with long-term current use of insulin ([facility]) CASE REQUEST OPERATING ROOM No orders of the defined types were placed in this encounter. PLAN: Ms. Luo presents today for follow-up chronic left great toe ulcer with history of osteomyelitis. I debrided the wound today-she had a good amount of callus tissue here. Wound has unfortunately gotten larger and does probe deep again. No purulence. No erythema. Systemically she is feeling well today. We discussed these findings. Due to worsening of wound despite offloading, IV and oral antibiotics, wound care, recommend surgical intervention at this time and she would like to proceed with this. We discussed that this would involve amputation of the left great toe. This will be done as an outpatient under IV sedation with local anesthesia. She will be in a surgical shoe for 2 to 3 weeks post operatively. We discussed the risk and benefits of the surgery including infection, problems with healing, need for further surgery, transfer lesions, blood clot. She noted understanding consent was obtained. We discussed postoperative pain medications. We will plan to have her take Tylenol postoper atively. She is going to meet with our nurse today to get further set up for surgery. We will try to do this in the next couple weeks. I would like her to stay on her antibiotics until the surgery and will discuss with Dr. Light. She is going to continue with the dressing changes daily until the surgery. She is also going to continue with the knee scooter and offloading until the surgery. She knows to call with any questions prior to surgery and is happy with this plan. Portions of this document have been prepared with speech recognition software or keyboard data processing operator techniques. Minor irregularities or keyboarding misprints may be present documented in this encounter Plan of Treatment Upcoming Encounters Date Type Department Care Team (Late st Contact Info) Description 02/21/2024 9:45 EDT Office Visit [facility] Adult Primary Care - [address] [phone] Carrington Calderon MD [address] [place] [phone] 02/27/2024 8:30 EDT Telemedicine [facility] Sleep Program - [address] [address] Rn, Sleep 02/29/2024 10:30 EDT Appointment [facility] Radiology Nuclear Medicine and PET [address] [address] 02/29/2024 14:30 EDT Appointment [facility] Radiology Nuclear Medicine and PET [address] [address] 03/01/2024 8:00 EDT Appointment [facility] Radiology Nuclear Medicine and PET [address] [address] 03/01/2024 9:30 EDT Appointment [facility] Radiology Nuclear Medicine and PET [address] [phone] documented as of this encounter Visit Diagnoses Diagnosis Osteomyelitis of toe of left foot (HCC-CMS)- Primary Unspecified osteomyelitis, ankle and foot Type 2 diabetes mellitus with diabetic polyneuropathy, with long-term current use of insulin ([facility]) documented in this encounter Orders Case Request Count Last Ordered Date First Orde red Date CASE REQUEST OPERATING ROOM 1 06/05/2020 documented in this encounter
--- OUTSIDE RECORDS SUMMARY | 2023-12-16 00:40 | XMS_ITS | Encounter Summary ---
Author Organization [facility] Address [address] [place] [address] Care Team Providers Care Paper Feeder Name Role Phone Unavailable Primary Care Provider Unavailabl e Encounter Details Date Type Department Care Team (Latest Contact Info) Description 06/13/2020 Travel Social History Tobacco Use Types Packs/Day [...] Info) Description 02/21/2024 9:45 EDT Office Visit [facility] Adult Primary Care - [address] [phone] Carrington Calderon MD [address] [place] [phone] 02/27/2024 8:30 EDT Telemedicine [facility] Sleep Program - [address] [address] Rn, Sleep 02/29/2024 10:30 EDT Appointment [facility] Radiology Nuclear Medicine and PET - [address] [phone] 02/29/2024 14:30 EDT Appointment [facility] Radiology Nuclear Medicine and PET - [address] 939171 03/01/2024 8:00 EDT Appointment [facility] Radiology Nuclear Medicine and PET - [address] 225431 03/01/2024 9:30 EDT Appointment [facility] Radiology Nuclear Medicine and PET - [address] [address] documented as of this encounter Visit Diagnoses Not on filedocumented in this encounter
--- OUTSIDE RECORDS SUMMARY | 2023-12-16 00:40 | XMS_ITS | Encounter Summary ---
Author Organization [facility] Address [address] [place] [address] Care Team Providers Care Hydro Station Supervisor Name Role Phone Unavailable Primary Care Provider Unavailabl e Encounter Details Date Type Department Care Team (Latest Contact Info) Description 06/10/2020 Travel Social History Tobacco Use Types Packs/Day [...] have Coronavirus / COVID-19? No / Unsure 06/10/2020 19:09 EST documented as of this encounter Functional [...] 02/21/2024 9:45 EDT Office Visit [facility] Adult Primary Care - [address] [address] Carrington Calderon MD [address] [phone] 02/27/2024 8:30 EDT Telemedicine [facility] Sleep Program - [address] [address] Rn, Sleep 02/29/2024 10:30 EDT Appointment [facility] Radiology Nuclear Medicine and PET - [address] [address] 02/29/2024 14:30 EDT Appointment [facility] Radiology Nuclear Medicine and PET [address] [address] 03/01/2024 8:00 EDT Appointment [facility] Radiology Nuclear Medicine and PET [address] [address] 03/01/2024 9:30 EDT [facility]ment [facility] Radiology Nuclear [place] [address] documented as of this encounter Visit Diagnoses Not on filedocumented in this encounter
--- OUTSIDE RECORDS SUMMARY | 2023-12-16 00:40 | XMS_ITS | Encounter Summary ---
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 Martníez to discuss Hcg (108). documented in this encounter Plan of Treatment Upcoming Encounters Date Type Department Care Team (Late st Contact Info) Description 02/21/2024 9:45 EDT Office Visit [facility] Adult Primary Care - [address] [phone] Carrington Calderon MD [address] [phone] 02/27/2024 8:30 EDT Telemedicine [facility] Sleep Program - [address] [phone] Rn, Sleep 02/29/2024 10:30 EDT Appointment [facility] Radiology Nuclear Medicine and PET - [address] [address] 02/29/2024 14:30 EDT Appointment [facility] Radiology Nuclear Medicine and PET [address] [address] 03/01/2024 8:00 EDT Appointment [facility] Radiology Nuclear Medicine and PET [address] [address] 03/01/2024 9:30 EDT Appointment [facility] Radiology Nuclear Medicine and PET [address] [address] documented as of this encounter Procedures Procedure Name Priority Date/Time Associated Diagnosis Comments QUANT BETA HCG, Routine 06/19/2020 13:07 EST of unknown anatomic location documented in this encounter Results * (ABNORMAL) QUANT BETA HCG, (06/19/2020 13:07 EST) Beta HCG Quant, 108(H) <5 mIU/ml 06/19/2020 14:38 EST [facility] Comment: NOTE: : Negative: Less than 5mIU/mL Indeterminant: Between 5 and 25 mIU/mL, recommend repeat testing in 48 hours Positive: Greater than 25 mIU/mL The results of this assay can be falsely lowered due to the consumption of Biotin. Blood VENOUS BLOOD / Unknown Venipuncture / Unknown 06/19/2020 13:07 EST 06/19/2020 13:54 EST David Martínez MD CHEMISTRY & BLOOD GAS ORDERABLES [facility] [address] [place] [address] documented in this encounter Visit Diagnoses Diagnosis of unknown anatomic location- Primary state, incidental documented in this encounter
--- OUTSIDE RECORDS SUMMARY | 2023-12-16 00:40 | XMS_ITS | Encounter Summary ---
Author Organization [facility] Address [address] [place] [address] Care Team Providers Care Asphalt Distributor Operator Name Role Phone Unavailable Primary Care Provider Unavailabl e Reason for Visit * Reason Onset Date Comments Pre-procedure 06/05/2020 Encounter Details Date Type Department Care Team (Latest Contact Info) Description 06/05/2020 Prep for Procedure [facility] Foot & Ankle Program - [address] [phone] Elza Navarro DPM [address] [place] [phone] Osteomyelitis of left foot, unspecified type (HCC-CMS) [...] [facility] - [address] [phone] Carrington Calderon MD 1 [facility] [address] [place] [phone] 02/27/2024 8:30 EDT Telemedicine [facility] Sleep Program - [address] [phone] Rn, Sleep 02/29/2024 10:30 EDT Appointment [facility] Radiology Nuclear Medicine and PET - [address] [address] 02/29/2024 14:30 EDT [facility]ointment [facility] Radiology Nuclear Medicine and PET - [address] [address] 03/01/2024 8:00 EDT [facility]ointment [facility] Radiology Nuclear Medicine and PET - [address] [address] 03/01/2024 9:30 EDT Appointment [facility] Radiology Nuclear Medicine and PET - [address] [address] documented as of this encounter Visit Diagnoses Diagnosis Osteomyelitis of left foot, unspecified type (HCC-CMS)- Primary documented in this encounter
--- OUTSIDE RECORDS SUMMARY | 2023-12-16 00:40 | XMS_ITS | Encounter Summary ---
Author Organization [facility] Address [address] [place] [address] Care Team Providers Care Set Up Person Name Role Phone Unavailable Primary Care Provider Unavailabl e Encounter Details Date Type Department Care Team (Latest Contact Info) Description 06/09/2020 9:35 EST Phlebotomy Only [facility] - [employer] [address] [place] [address] Osteomyelitis of left foot, unspecified type ([facility]) Social History Tobacco Use Types Packs/Day Years [...] Info) Description 02/21/2024 9:45 EDT Office Visit [facility] Adult Primary Care - [address] [phone] Carrington Calderon MD [address] [place] [phone] 02/27/2024 8:30 EDT Telemedicine [facility] Sleep Program - [address] [phone] Rn, Sleep 02/29/2024 10:30 EDT Appointment [facility] Radiology Nuclear Medicine and PET - [address] [phone] 02/29/2024 14:30 EDT Appointment [facility] Radiology Nuclear Medicine and PET - [address] 975371 03/01/2024 8:00 EDT Appointment [facility] Radiology Nuclear Medicine and PET [address] [address] 03/01/2024 9:30 EDT Appointment [facility] Radiology Nuclear Medicine and [address] [address] documented as of this encounter Procedures Procedure Name Priority Date/Time Associated Diagnosis Comments [facility]COVID-19 TEST [facility] Today 06/09/2020 9:28 EST Osteomyelitis of left foot, unspecified type (HCC-CMS) COVID-19 TESTING Routine 06/09/2020 9:28 EST Osteomyelitis of left foot, unspecified type (HCC-CMS) documented in this encounter Results * COVID-19 TEST [facility] PCR (06/09/2020 9:28 EST) Swab ENTIRE NASOPHARYNX / Unknown Swab / Unknown 06/09/2020 9:28 EST 06/09/2020 9:28 EST Elza Navarro DPM MICROBIOLOGY - GENER AL ORDERABLES [facility] [address] [place] [id number] * COVID-19 TESTING (06/09/2020 9:28 EST) COVID-19 rt-PCR Result Negative Negative 06/09/2020 16:34 EST [facility] Comment: This test has [...] history, and epidemiological information. Performed on the [employer] [place] Fusion instrument Performing Lab [facility] 06/09/2020 16:34 EST [facility] Swab ENTIRE NASOPHARYNX / Unknown Swab / Unknown 06/09/2020 9:28 EST 06/09/2020 9:28 EST Elza Navarro DPM MICROBIOLOGY - GENER AL ORDERABLES [facility] [address] [place] [address] documented in this encounter Visit Diagnoses Diagnosis Osteomyelitis of left foot, unspecified type (HCC-CMS) documented in this encounter
--- OUTSIDE RECORDS SUMMARY | 2023-12-16 00:40 | XMS_ITS | Encounter Summary ---
Author Organization [facility] Address [address] [place] [address] Care Team Providers Care Production Laborer Name Role Phone Unavailable Primary Care Provider Unavailabl e Encounter Details Date Type Department Care Team (Latest Contact Info) Description 06/16/2020 Travel Social History Tobacco Use Types Packs/Day [...] [facility] Adult Primary Care - [address] [phone] Carrington Calderon MD [address] [place] [phone] 02/27/2024 8:30 EDT Telemedicine [facility] Sleep Program - [address] [address] Rn, Sleep 02/29/2024 10:30 EDT Appointment [facility] Radiology Nuclear Medicine and PET - [address] [address]128[address] 02/29/2024 14:30 EDT Appointment [facility] Radiology Nuclear Medicine and PET - [address] [address]47[address] 03/01/2024 8:00 EDT Appointment [facility] Radiology Nuclear Medicine and PET [address] [address]33711 03/01/2024 9:[address] [facility] Radiology Nuclear Medicine and PET - [address] [address] documented as of this encounter Visit Diagnoses Not on filedocumented in this encounter
--- OUTSIDE RECORDS SUMMARY | 2023-12-16 00:40 | XMS_ITS | Encounter Summary ---
Author Organization [facility] Address [address] [place] [address] Care Team Providers Care Supervisor Fur Dressing Name Role Phone Unavailable Primary Care Provider Unavailabl e Reason for Visit * Reason Onset Date Comments Medication Management 06/13/2020 Encounter Details Date Type Department Care Team (Late st Contact Info) Description 06/13/2020 Telephone [facility] Endocrinology - [facility] [address] [place] [address] Sara Zafar NP 62 [facility] [address] [place] [phone] Medication Management Social History Tobacco Use Types Packs/Day Years [...] encounter Miscellaneous Notes * Telephone Encounter - Post, MARCELO Ramos - 06/13/2020 1143 EST 1. Collect and document the following information: a. Type 2 DM b. Date and time of surgery: 06/16/2020, 1:3-PM c. What type of surgery: Left great toe amputation d. Outpatient or inpatient: Outpatient e. Duration of surgery: 35 minutes f. When will the pt be NPO: Midnight . Clear liquids from midnight-10AM of surgical day. g. Any dietary restrictions following surgery: no 2. If pt is on pump please refer to CDE/provider: N/A 3. Current insulin doses a. Basal insulin: Lantus 40 units PM b. Bolus insulin: Novolog 9 breakfast , 9 units lunch, 9 units supper. Pt has a sliding scale . 9 units is her base. c. 4. Current Oral Hypoglycemic Agents: N/A 5. 6. Insulin Adjustment a. Basal adjustment: i. If pt takes basal in the PM have pt reduce basal by 20%-30% the night before surgery = 32 units ii. If pt takes basal in the AM have pt reduce dose by 20%- 30% the morning of surgery: N/A b. Bolus adjustment: i. No bolus insulin for meals since NPO ii. If pt is > 250 they can use a 50% correction dose iii. If pt is > 250 and they have no correction factor have them call clinic for correction iv. 7. Oral Hypoglycemic Agents should be held while NPO 8. 9. If patient becomes hypoglycemic while NPO they can have some clear juice to treat hypoglycemia Barriers to education: None Pt verbalized understanding:Yes Pt called to alert office that she will be having her Left Great toe amputated on 06/16/2020, and she was calling to verify directions for managing her insulins. Reviewed with pt the above protocols. Patient verbalized understanding. No barriers to learning noted. Rachel Hilton RN Endocrinology * Telephone Encounter - Nicole Mandujano - 06/13/2020 0959 EST Patient has surgery on 06/16/2020. Pre OP wants patient to take 32 units at bedtime the night beforesince she can not eat anything after midnight till surgery. Please advise. documented in this encounter Plan of Treatment Upcoming Encounters Date Type Department Care Team (Late st Contact Info) Description 02/21/2024 9:45 EDT Office Visit [facility] Adult Primary Care - [address] [phone] Carrington Calderon MD 1 [facility] [address] [place] [phone] 02/27/2024 8:30 EDT Telemedicine [facility] Sleep Program - [address] [address] Rn, Sleep 02/29/2024 10:30 EDT [facility] Radiology Nuclear Medicine and PET - [address] [address] 02/29/2024 14:30 EDT Appointment [facility] Radiology Nuclear Medicine and PET - [address] [address] 03/01/2024 8:00 EDT Appointment [facility] Radiology Nuclear Medicine and PET - [address] [address] 03/01/2024 9:30 EDT Appointment [facility] Radiology Nuclear Medicine and PET [address] [address] documented as of this encounter Visit Diagnoses Not on filedocumented in this encounter
--- OUTSIDE RECORDS SUMMARY | 2023-12-16 00:40 | XMS_ITS | Encounter Summary ---
Author Organization [facility] Address [address] [place] [address] Care Team Providers Care Automotive Painter Helper Name Role Phone Unavailable Primary Care Provider Unavailabl e Reason for Visit * Reason Comments Pre-op Exam toe Encounter Details Date Type Department Care Team (Latest Contact Info) Description 06/13/2020 15:30 EST Office Visit [facility] Adult Primary Care - [address] [address] Teodoro Alejandro PA-C [address] [place] [address] [address] [place] [address] Osteomyelitis of great toe of left foot (HCC-CMS) (Primary Dx); Pre-op examination Social History Tobacco Use Types Packs/Day [...] the money to buy more. Never true 06/22/20 20 Within the past 12 months, t [...] 15:18 EST documented as of this encounter Last Filed Vital Signs Vital Sign Reading Time Taken Comments Blood Pressure 124/70 06/13/2020 1521 EST Pulse 68 06/13/2020 1521 EST Temperature 36.4 ??C (97.6 ??F) 06/13/2020 1521 EST Respiratory Rate 18 06/13/2020 1521 EST Oxygen Saturation - - Inhaled Oxygen Concentration - - Weight 90.7 kg (200 lb) 06/13/2020 1521 EST Height - - Body Mass Index 34.33 06/13/2020 0929 EST documented in this encounter Functional Status [...] as of this encounter Progress Notes * Teodoro Alejandro PA-C - 06/13/2020 1530 EST Images from the original note were [...] last A1c was 9.1. According to her nurse anesthesia program director, patient is instructed to take 32 units [...] told years ago ??? Depression ??? Diabetes ([facility]-CMS) A1c 10.3 on 11/28/2019 - poorly controlled [...] 27 mL 3 ??? 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 Teodoro Alejandro PA-C 06/13/2020 16:30 Revised Cardiac Risk Index (Martinez - six independent predictors of cardiac complications): 1. High risk surgery (vascular, intraperitoneal, intrathoracic) 2. History of CAD (history of AL or a positive ETT, current ischemic chest [...] with beta blockers documented in this encounter Plan of Treatment Upcoming Encounters Date Type Department Care Team (Late st Contact Info) Description 02/21/2024 9:45 EDT Office Visit [facility] Adult Primary Care - [address] [phone] Carrington Calderon MD [address] [place] [phone] 02/27/2024 8:30 EDT Telemedicine [facility] Sleep Program - [address] [phone] Rn, Sleep 02/29/2024 10:30 EDT Appointment [facility] Radiology Nuclear Medicine and PET [address] [id number] 02/29/2024 14:30 EDT Appointment [facility] Radiology Nuclear Medicine and PET [address] [id number] 03/01/2024 8:00 EDT Appointment [facility] Radiology Nuclear Medicine and PET [address] [phone] 03/01/2024 9:30 EDT Appointment [facility] Radiology Nuclear Medicine and PET [address] [phone] documented as of this encounter Procedures Procedure Name Priority Date/Time Associated Diagnosis Comments ECG REPORT - SCANNED 06/13/2020 15:53 EST EKG 12-LEAD Routine 06/13/2020 15:41 EST Pre-op examination Osteomyelitis of great toe of left foot (HCC-CMS) documented in this encounter Results * ECG REPORT - SCANNED (06/13/2020 15:53 EST) 06/13/2020 15:5 3 EST Scan 2 Chute Builder PROCEDURE/MINOR BRAULIO GICAL ORDERABLES * EKG 12-LEAD (06/13/2020 15:41 EST) 06/13/2020 15:4 1 EST Narrative [facility] EKG - 06/13/2020 15:48 EST ? PC Site ? Test Date: ?2020-06-13 Pat Name: ? CRISTY LUO ?Department: ?? [facility] ? Room: ? Gender: ? Female ? Audio Video Technician: ?? [id number] : ?1985 ? Requested By: HUBERT Forman Order Number: [id number] ? Reading : ?? TEODORO ALEJANDRO PA-C ? Measurements Intervals ?[place] ? Rate: ? 94 ? P: ?59 NE: ? 156 ?QRS: ?34 QRSD: ? 89 ? T: ?13 QT: ? 335 ? QTc: ?420 ? Interpretive Statements SINUS RHYTHM Automated Interpretation. ??Provider Interpretation to follow. Compared to ECG 06/18/2019 08:28:09 No significant changes I reviewed the tracing and have either agreed or edited the findings in this report. Electronically Signed On 06-13-2020 15:48:18 EST by TEODORO ALEJANDRO PA-C. Procedure Note Teodoro Alejandro PA-C - 06/13/2020 Site Test Date: 2020-06-13 Pat Name: CRISTY LUO Department: [facility] Room: Gender: Female Audio Video Technician: [id number] : 1985 Requested By: HUBERT Forman Order Number: [id number] Reading MD: TEODORO ALEJANDRO PA-C Measurements Intervals [place] Rate: 94 P: 59 NE: 156 QRS: 34 QRSD: 89 T: 13 QT: 335 QTc: 420 Interpretive Statements SINUS RHYTHM Automated Interpretation. Provider Interpretation to follow. Compared to ECG 06/18/2019 08:28:09 No significant changes I reviewed the tracing and have either agreed or edited the findings inthis report. Electronically Signed On 06-13-2020 15:48:18 EST by TEODORO AMES. Teodoro Alejandro PA-C CARDIAC ECG ORDERABLES [facility] EKG documented in this encounter Visit Diagnoses Diagnosis Osteomyelitis of great toe of left foot (HCC-CMS)- Primary Pre-op examination Preoperative examination, unspecified documented in this encounter
--- OUTSIDE RECORDS SUMMARY | 2023-12-16 00:40 | XMS_ITS | Encounter Summary ---
Author Organization [facility] Address [address] [place] [address] Care Team Providers Care Job Development Specialist Name Role Phone Unavailable Primary Care Provider Unavailabl e Reason for Referral * CLOTH SPONGER (Routine) - Specialty Report Received Specialty Diagnoses / Procedures [facility]erred To Contact Diagnoses of unknown anatomic location Procedures US OB FIRST TRIMESTER (LESS THAN 14 WEEKS) TRANSVAGINAL David Martínez MD [address] [place] [phone] Referral ID Status Reason Start Date Expiration Date V isits Requested Visits Authorized [id number] Specialty Report Received 06/19/2020 1 1 Reason for Visit * Reason Onset Date Comments 06/18/2020 Encounter Details Date Type Department Care Team (Late st Contact Info) Description 06/18/2020 Telephone [facility] Women's Services - [address] [address] Nohemy Sales MD [address] [place] [phone] Social History Tobacco Use Types Packs/Day [...] encounter Miscellaneous Notes * Telephone Encounter - Kylah Jimenes RN - 06/19/2020 1624 EST HCG back at 108. Discussed with Dr. Martínez. Plan to come in for ultrasound tomorrow to r/o ectopic (Pt has h/o ectopic). Booked Pt at 0900. Pt to get Rhogam tomorrow as well per Dr. Martínez. Will administer after ultrasound. * Addendum Note - Maryann Heart RN - 06/19/2020 1612 ESTAddended by: MARYANN HEART on: 06/19/2020 16:12 Modules accepted: Orders * Telephone Encounter - Maryann Heart RN - 06/19/2020 1030 EST Phone call to Stella - -she had surgery (toe amputation d/t infection in left big toe) on Friday 06/16 and anesthesia performed a urine test that came back as positive x 2. Did proceed with surgery. 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 No symptoms since positive test. This cramping and bleeding does not feel like any of her other past pregnancies that she has miscarried. -Did take a repeat home test last night and had a positive test again. -Prior LMP was beginning of May (end of first week of May) - ~3 day period at this time. -Blood type B neg. Reviewed with Stella that nurse will check in regarding plan for her and call her back. Discussed with Dr. Almonte - ideally should be SUPERVISOR PHOSPHORUS PROCESSING provider managing at this time. Dr. Martínez was present with Dr. Almonte so reviewed patient case with Dr. Martínez - plan is to get a bHCG today (and order a repeat in 48 hrs), see what that lab level comes back with and depending on number may try to get patient in for ultrasound tomorrow (and possible rhogam too). Phone call to Stella - reviewed plan for bHCG today, she is able to come down to [facility] lab for this lab draw and understands plan. She had no further questions and verbalized understanding of plan. Will follow up when [facility] [place] back. * Telephone Encounter - Elza Nieves - 06/18/2020 0821 EST Have you been seen here before for OB care? Yes If yes, who did you see (Refer to [facility] if can???t remember)? [facility]. Reason for Call as described by patient Patient had surgery, test at time of surgery cameback positive. Patient unsure if they're , has history of several miscarriages. Had 2 UPTs done at time of procedure. Patient has not taken a repeat test since their procedure. What is the first day of your last period? LMP: 05/19/2020 Bleeding/Pain? Yes, wasn't bleeding at time of their surgery but after going home from surgery theyexperienced dark red blood and yesterday bright red period blood Not concerned about the volume, has not been soaking pads, describes it as a light period What is the best phone number for us to reach you back at? [phone] What time of day is the best to call you back? Any For your awareness, this will be a 5-10 minute intake discussion with your nurse. Is it ok to leave a detailed message? Yes Elza Nieves 06/18/2020 8:21 documented in this encounter Plan of Treatment Upcoming Encounters Date Type Department Care Team (Late st Contact Info) Description 02/21/2024 9:45 EDT Office Visit [facility] Adult Primary Care - [address] [phone] Carrington Calderon MD 1 [facility] 1 [place] [phone] 02/27/2024 8:30 EDT Telemedicine [facility] Sleep Program - [address] [phone] Rn, Sleep 02/29/2024 10:30 EDT Appointment [facility] Radiology Nuclear Medicine and PET [address] [phone] 02/29/2024 14:30 EDT Appointment [facility] Radiology Nuclear Medicine and PET [address] [address] 03/01/2024 8:00 EDT Appointment [facility] Radiology Nuclear Medicine and PET [address] [address] 03/01/2024 9:30 EDT Appointment [facility] Nuclear Medicine and PET [address] [phone] documented as of this encounter Results * (ABNORMAL) QUANT BETA HCG, (06/21/2020 9:14 EST) [facility] Signature Beta HCG Quant, 152(H) <5 mIU/ml 06/21/2020 11:01 EST [facility] Comment: NOTE: : Negative: [...] Martínez MD CHEMISTRY & BLOOD GAS ORDERABLES [facility] [address] [place] [phone] * US OB FIRST TRIMESTER (LESS THAN [...] Sufficient. Impression 1st Trimester OB scan ,transvaginal +[id number] There is no visualized gestational sac either [...] The adnexa appear normal. Follow-up Per the SUPERVISOR PHOS[employer]ESSING service. Comment ========= Results discussed w/patient. DATE [...] Sufficient. Impression 1st Trimester OB scan ,transvaginal +[id number] There is no visualized gestational sac either [...] The adnexa appear normal. Follow-up Per the SUPERVISOR PHOS[employer] PROCESSING service. Comment ========= Results discussed w/patient. DATE [...] Sufficient. Impression 1st Trimester OB scan ,transvaginal +[id number] There is no visualized gestational sac either [...] The adnexa appear normal. Follow-up Per the SUPERVISOR PHOS[employer] PROCESSING service. Comment ========= Results discussed w/patient. DATE OF SERVICE: 06/20/2020 David Martínez MD [facility] US OB ORDERAB LES * (ABNORMAL) QUANT BETA HCG, (06/19/2020 13:07 EST) Beta HCG Quant, 108(H) <5 mIU/ml 06/19/2020 14:38 EST [facility] Comment: NOTE: : Negative: [...] Martínez MD CHEMISTRY & BLOOD GAS ORDERABLES [facility] [address] [place] [address] documented in this encounter Visit Diagnoses Diagnosis of unknown anatomic location- Primary state, incidental of unknown anatomic location state, incidental documented in this encounter
--- OUTSIDE RECORDS SUMMARY | 2023-12-16 00:40 | XMS_ITS | Encounter Summary ---
Author Organization [facility] Address [address] [place] [address] Care Team Providers Care Hair Assistant Name Role Phone Unavailable Primary Care Provider Unavailabl e Reason for Visit * Reason Onset Date Comments Appointment Related 06/12/2020 Encounter Details Date Type Department Care Team (Late st Contact Info) Description 06/12/2020 Telephone [facility] Endocrinology - [address] [facility] [address] [place] [address] Appointment Related Social History Tobacco [...] * Telephone Encounter - Mica Gaona - 06/12/2020 1133 EST LMOM regarding 05/22/20 No Show. Calling off the Bump List. documented in this encounter Plan of Treatment Upcoming Encounters Date Type Department Care Team (Late st Contact Info) Description 02/21/2024 9:45 EDT Office Visit [facility] Adult Primary Care - [address] [phone] Carrington Calderon MD [address] [facility] Level 1 [place] [phone] 02/27/2024 8:30 EDT Telemedicine [facility] Sleep Program - [address] [place] [address] Rn, Sleep 02/29/2024 10:30 ED[facility] Nuclear Medicine and PET - [address] [address] 02/29/2024 14:30 EDT Appointment [facility] Radiology Nuclear Medicine and PET - [address] [address] 03/01/2024 8:00 EDT Appointment [facility] [place] Radiology Nuclear Medicine and PET - [address] [address] 03/01/2024 9:30 EDT Appointment [facility] Radiology Nuclear Medicine and PET - [address] [address] documented as of this encounter Visit Diagnoses Not on filedocumented in this encounter
--- OUTSIDE RECORDS SUMMARY | 2023-12-16 00:40 | XMS_ITS | Encounter Summary ---
Author Organization [facility] Address [address] [place] [address] Care Team Providers Care Certified Personal Trainer Name Role Phone Unavailable Primary Care Provider Unavailabl e Reason for Visit * Reason Onset Date Comments Other 06/13/2020 Encounter Details Date Type Department Care Team (Late st Contact Info) Description 06/13/2020 Telephone [facility] Foot & Ankle Program - [address] [address] Elza Navarro [address] [place] [address] Other Social History Tobacco Use [...] Telephone Encounter - Swathi Tesfaye LPN - 06/13/2020 1003 EST Patient was contacted w/ preop information. Patient was told to arrive @1:30 on 06.16.20 @ [facility], nothing to eat or drink after midnight, no makeup/jewelry/nailpolish/perfumes, to shower the night before and morning of surgery with an antibacterial soap, to wear appropriate attire (baggy, loose fitting, etc), to leave all valuables at home. Post op visit is 06.25.20 @3pm. Patient verbalized understanding of instructions. SWATHI TESFAYE LPN documented in this encounter Plan of Treatment Upcoming Encounters Date Type Department Care Team (Late st Contact Info) Description 02/21/2024 9:45 EDT Office Visit [facility] Adult Primary Care - [address] [phone] Carrington Calderon MD 1 [facility] 1 [place] [address] 02/27/2024 8:30 EDT Telemedicine [facility] Sleep Program - [address] [phone] Rn, Sleep 02/29/2024 10:30 EDT Appointment [facility] Radiology Nuclear Medicine and PET - [address] [phone] 02/29/2024 14:30 EDT Appointment [facility] Radiology Nuclear Medicine and PET - [address] [phone] 03/01/2024 8:00 [facility] [address] [phone] 03/01/2024 9:30 EDT Appointment [facility] Radiology Nuclear Medicine and PET - [address] [phone] documented as of this encounter Visit Diagnoses Not on filedocumented in this encounter
--- OUTSIDE RECORDS SUMMARY | 2023-12-16 00:40 | XMS_ITS | Encounter Summary ---
Author Organization [facility] Address [address] [place] [address] Care Team Providers Care Surgery Consultant Name Role Phone Unavailable Primary Care Provider Unavailabl e Reason for Visit * Reason Comments Telemedicine Video Visit Encounter Details Date Type Department Care Team (Late st Contact Info) Description 06/04/2020 12:00 EST Telemedicine [facility] Infectious Disease - [address] [phone] Mushtaq Light, DO 111 [facility], Level 5 [place] [address] Osteomyelitis of great toe of left foot [...] encounter Progress Notes * Mushtaq Light, - 06/04/2020 1200 EST CHIEF COMPLAINT: Worsening drainage from plantar ulcer ?? Prior antibiotics: Ancef 2 g IV every 8 start day 09 March, stop day 20 April Flagyl 500 p.o. 3 times daily start day 09 March, stop day 20 April. ??Vancomycin started 03 May, stop day 04 May when she signed out AMA due to childcare concerns. Current antibiotics: Augmentin 875 p.o. twice daily started 05 May until present. HISTORY OF PRESENT ILLNESS: Ms. Luo is a 35 y.o. woman with past medical history significant for poorly controlled T2DM c/b neuropathy (Hgb A1c 10 in November), morbid obesity, and tobacco dependence who was scheduled to for a zoom visit with me today but she forgot so we had a brief Zoom visit while she was walking in a store. For background: ?? Initially admitted 03/06 - 03/12 for left great toe osteomyelitis and associated left lower extremitySSTI. Bone biopsy was polymicrobial (MSSA, GBS, S. anginosus, prevotella) and MRI revealed 1st distal phalanx osteomyelitis with possible early proximal involvement. No surgical interventions were performed at the time. She was discharged to complete 6 weeks of cefazolin 2gm q8h and PO metronidazole 500mg q8h, with dressing changes and short-interval podiatry follow-up. Per notes, she missed several of her follow-up appointments. Her initial stop date was 20 April and PICC line was pulled ?? In follow-up w/ podiatry on 03/25, noted to have decrease in size of ulcer and no longer probed to bone. Inflammatory markers were normal on several occasions (03/18, 03/25, 04/01). Follow-up w/ podiatry again on 04/30 without evidence of active infection but did probe deep. Readmitted briefly in late April due to increased drainage from the ulcer of her left plantar great toe, increasing pain and swelling in the region. In the ER, her CRP was 39.2 and WBC 17. She wasgiven a dose of vancomycin, blood cultures were drawn, and she was admitted to medicine. An MRI done the following day showed Interval progression of osteomyelitis in the first proximal phalanx and Interval improvement of osteomyelitis in the first distal phalanx. Patient was going to be evaluated by podiatry the following day but had to sign out AMA that evening as she had no one to take care ofher children. ?? We contacted patient the following day and arrange for podiatry follow-up and started her on Augmentin. Since discharge, she was seen by podiatry on 14 May at which time the chronic ulcer on her plantar aspect of her left great toe had improved significantly in size and appearance. She did no-show for 1 endocrinology appointment and on her follow-up podiatry appointment yesterday. Patient notes in the past few days that there is been increased drainage from the plantar ulcer on her foot. She denies fevers but she admits to some nausea. She is currently walking on her foot. Review of systems: ?? REVIEW OF SYSTEMS: 10-point review of systems is negative except as mentioned in the HPI and as noted here. ?? PAST MEDICAL ?? Past Medical History: Diagnosis Date ??? Anxiety ? Arthritis ? 12/05/19- Spine- told years ago ??? Diabetes ([facility]) ? A1c 10.3 on 11/28/2019 ??? History of general anesthesia ? Nausea & vomiting ? Obesity, unspecified ? Peripheral neuropathy ? 12/05/19- Bilateral feet ??? Skin problem ? 11/28/19- Per MD notes, left foot with redness and swelling, and open wound. WBC count 14.38. MRItoday to rule out osteomyelitis. ??? Spontaneous miscarriage 09/04/2015 ?? 02/18, 08/19. Followed by Dr. López[facility] in OBGYN ? SURGICAL HISTORY: ?? Past Surgical History: Procedure Laterality Date ??? 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 DILATION AND CURETTAGE OF UTERUS ? DILATION AND CURETTAGE OF UTERUS ? DILATION AND CURETTAGE OF UTERUS ? DILATION AND CURETTAGE OF UTERUS ? DILATION AND CURETTAGE OF UTERUS ? DILATION AND CURETTAGE OF UTERUS ? OTHER SURGICAL HISTORY ? tailbone (mostlikely pilonidal cyst) ??? PILONIDAL CYST EXCISION ? FOREIGN BODIES: None ?? 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 ?? Social History ?? Socioeconomic History ??? Marital status: ? Spouse [...] Gets together: Not on file ? Attends druze service: Not on file ? Active member [...] Narrative ??? Not on file ? FAMILY HISTORY: ?? Problem Relation Name Comments Diabetes Mother ? Diabetes Maternal Grandmother ? Diabetes Maternal Grandfather ? Diabetes Paternal Grandmother ? Diabetes Paternal Grandfather ? The Family History was reviewed and is non-contributory for a past history of infection or immunocompromised state. ALLERGIES: Allergies Allergen Reactions ??? Citalopram Other (See Comments) ? suicidal ideation, approx 2012 ??? Other - See Comments Swelling of throat ? pomergrante ??? Advil [Ibuprofen] Hives ?? PHYSICAL EXAM: Deferred as this is a Zoom visit and patient was evaluated while she was walking around the mall. ?? LABORATORY: Reviewed in detail in PRISM. 04 May ESR 36, CRP 39, WBC 13.4 MICROBIOLOGY DATA: Reviewed in detail in [facility]ISM. Pertinent for: ?? 03/07 left toe (bone): few polys, few MSSA, few GBS, few strep anginosus, moderate prevotella 05/03 covid-19 DB2 DBA swab: negative 05/04 blood cultures:06/09 bottles growing corynebacterium (presumed contaminant) ?? IMAGING DATA: personally reviewed 03 May x-ray: AP,??oblique, and lateral radiographs of the??left foot??demonstrate no acute fracture or dislocation, no evidence of osteolysis, small amount of soft tissue swelling on the medialaspect of the ankle. 04 May 2020 MRI left foot: 1. Interval progression of osteomyelitis in the first proximal phalanx. 2. Interval improvement of osteomyelitis in the first distal phalanx. 3. Diffuse soft tissue swelling with an ulcer on the plantar aspect of the first great toe. No significant fluid collection. ?? ASSESSMENT: 1. 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 Patient then developed drainage from the same left toe plantar ulcer noted 2 weeks later and an MRI performed 04 May showed interval progression of osteomyelitis in the first proximal phalanx. Patient signed out AMA on the same day so we contacted her via phone call and started her on a prolonged course of Augmentin. Patient seemed to be doing okay on her most recent visit with podiatry on 14 May, but it appears that her drainage is returned. From a review of systems standpoint, she sounds clinically stable. Most recent labs date back to 04 May when she had a WBC of 13.4. 2. Elevated inflammatory markers back in late April 3. Corynebacterium noted in blood cultures from April, presumed contaminant. 4. Diabetes 5. Obesity 6. Some challenges with childcare back in April. 7. Smoking cigarettes. 8. Frequent clinic no-shows for endocrinology, ID and podiatry. ?? RECOMMENDATIONS: 1. Will communicate with Dr. Navarro as she will be seeing her in clinic later on tomorrow to get a sense of what the wound looks like. If there is concern for continued infection after 6 weeks of Ancef/Flagyl, a 2-week break and now 4 weeks of Augmentin, with known osteomyelitis in the first proximal phalanx seen on MRI back in Nov, patient may be a surgical candidate at this point. 2. Optimize diabetes management 3. Smoking cessation NICOLE Light staff ?? documented in this encounter Plan of Treatment Upcoming Encounters Date Type Department Care Team (Late st Contact Info) Description 02/21/2024 9:45 EDT Office Visit [facility] Adult Primary Care - [address] [phone] Carrington Calderon MD [address] [phone] 02/27/2024 8:30 EDT Telemedicine [facility] Sleep Program - [address] [phone] Rn, Sleep 02/29/2024 10:30 EDT Appointment [facility] Radiology Nuclear Medicine and PET - [address] [phone] 02/29/2024 14:30 EDT Appointment [facility] Radiology Nuclear Medicine and PET [address] [phone] 03/01/2024 8:00 EDT Appointment [facility] Radiology Nuclear Medicine and PET - [address] [phone] 03/01/2024 9:30 EDT Appointment [facility] Radiology Nuclear Medicine and PET [address] [phone] documented as of this encounter Visit Diagnoses Diagnosis Osteomyelitis of great toe of left foot (HCC-CMS)- Primary documented in this encounter
--- OUTSIDE RECORDS SUMMARY | 2023-12-16 00:40 | XMS_ITS | Encounter Summary ---
Author Organization [facility] Address [address] [place] [address] Care Team Providers Care Client Technologies Specialist Name Role Phone Unavailable Primary Care Provider Unavailabl e Reason for Visit * Reason Comments Encounter Details Date Type Department Care Team (Late st Contact Info) Description 06/20/2020 9:45 EST Office Visit [facility] Reproductive Medicine & Infertility Center - [address] [phone] Cielo Duggan MD 111 [facility], Level 4 [place] [address] of unknown anatomic location (Primary Dx); Blood type, Rh negative; Hx of ectopic Social History Tobacco Use Types Packs/Day Years [...] as of this encounter Progress Notes * Cielo Duggan MD - 06/20/2020 0971 EST Images from the original note were not included. [facility]-Level 4 [facility] FIRST TRIMESTER ULTRASOUND Reason for Visit: First trimester US with hx of previous interstitial Hx of recurrent loss RH negative Subjective: Ms. Cristy Luo is a 35 y.o. At 6+2 weeks by certain LMP who was placed in US schedule by the OB service for an evaluation for a positive test in the setting of vaginal bleeding and a hx of a prior ectopic . The patient reports she had a recent (Tuesday) toe amputation for infection related to diabetic footchanges and had a urine test the day of surgery that was positive. She also did a home test that evening as she was not aware she was . Her last menstrual period is certain at May was normal in timing, but a bit shorter in duration (2 1/2 days instead fo 5). She has been having left sided lower back and kidney pain that has radiated into the bilateral lower pelvis. Pain is better today than last night. She was treated in 2019 for an ectopic , by records she was treated for a suspected interstitial . She has had some intermittent vaginal bleeding over the last several days. She did pass a few clotsstarting Tuesday. Her hx is a bit blurry to her due to the stress of surgery, ongoing phantom toe pain, and the recent events. Objective: See US report B hCG 06/19/2020 108 RH negative (patient received Rhogam today) See US report: A small amount of heterogeneous material in the uterus with tissue extending into the left cornua but no clear interstitial --no clear sac, no adnexal masses and no significant fluid collection in the pelvis. Assessment: of uncertain location Hx of previous interstitial Recent surgery for diabetic foot changes and infection Hx of recurrent loss I had a 25 minute face to face conversation with the patient, 100% in face to face consultation. Wereviewed the findings of her US-- location, growth and findings of her ovaries. . Recommendations: 1.) Call with accelerating abdominal pain/ectopic precaustions 2.) hcg am of 06/21 with AEROSPACE MANAGER service to follow documented in this encounter Plan of Treatment Upcoming Encounters Date Type Department Care Team (Late st Contact Info) Description 02/21/2024 9:45 EDT Office Visit [facility] Adult Primary Care - [address] [address] Carrington Calderon MD 1 [facility] Level 1 [place] [address] 02/27/2024 8:30 EDT Telemedicine [facility] Sleep Program - [address] [place] [phone] Rn, Sleep 02/29/2024 10:30 EDT Appointment [facility] Radiology Nuclear Medicine and PET [address] [phone] 02/29/2024 14:30 EDT Appointment [facility] Radiology Nuclear Medicine and PET [address] [phone] 03/01/2024 8:00 EDT Appointment [facility] Radiology Nuclear Medicine and PET [address] [phone] 03/01/2024 9:30 EDT Appointment [facility] Radiology Nuclear Medicine and PET [address] [phone] documented as of this encounter Visit Diagnoses Diagnosis of unknown anatomic location- Primary state, incidental Blood type, Rh negative Other specified conditions influencing health status Hx of ectopic Personal history of other genital system and obstetric disorders documented in this encounter Administered Medications Administered Medications Medication Order MAR Action Action Date Dose Rate Site Rho(D) Immune Globulin IM Intramuscular Given 06/20/2020 10:34 EST 300 mcg Left Gl uteus Medius/Ventroglutea l documented in this encounter
--- OUTSIDE RECORDS SUMMARY | 2023-12-16 00:40 | XMS_ITS | Encounter Summary ---
Author Organization [facility] Address [address] [place] [address] Care Team Providers Care Resolution Specialist Name Role Phone Unavailable Primary Care Provider Unavailabl e Reason for Visit * Reason Comments Foot Problem * Follow Up (Routine/Next Available) - Receiving Office to Obtain Authorization Specialty Diagnoses / Procedures Referred By Kit goode Referred To Contact Podiatry Diagnoses Diabetic foot ulcer ([facility]) Carrington Mari MD [address] [place] [address] [facility] [address] [place] [address] Referral ID Status Reason Start Date Expiration Date Visits Requested Visits Authorized [id number] Receiving Office to Obtain Authorization Specialty Services Required 0 1 1 Encounter Details Date Type Department Care Team (Late st Contact Info) Description 05/14/2020 14:30 EST Office Visit [facility] Foot & Ankle Program - [address] [place] [address] Elza Navarro DPM [address] [place] [phone] Ulcer of great toe, left, with necrosis of bone ([facility]) (Primary Dx); Type 2 diabetes mellitus with diabetic polyneuropathy, with long-term current use of insulin ([facility]) Social History Tobacco Use Types Packs/Day Years [...] Progress Notes * Elza Navarro, DPM - 05/14/2020 7610 EST Images from the original note were not included. Cristy Luo is a very pleasant 35 y.o. female patient who presents for follow up chronic leftgreat toe ulcer with history of osteomyelitis. She reports that she has been doing well. She has been using the knee scooter and has felt comfortable with this. She also wears the offloading shoe andinsole. She has been taking the ihixikzquyk-Kjwiqkquf-kzwnmap any issues. She has been changing thedressing daily. Overall she is feeling well today. She denies pain in the toe. She denies nausea, vomiting, fever, chills. Patient Active Problem List Diagnosis Date Noted ??? 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 ([facility]) 05/03/2020 Priority: Medium ??? Osteomyelitis of great toe of left foot ([facility]) 03/12/2020 Priority: Medium ??? Diabetic foot ulcer associated with diabetes mellitus due to underlying condition ([facility]) 03/07/2020 Priority: Medium ??? Diabetic foot infection ([facility]) 03/06/2020 Priority: Medium ??? Diabetic foot ulcer ([facility]) 03/06/2020 Priority: Medium ??? Cellulitis of great toe of left foot 11/26/2019 Priority: Medium ??? Chronic midline low back pain without sciatica 11/26/2019 Priority: Medium ??? Chronic left ear pain 09/04/2015 Priority: Medium ??? Encounter for sterilization 11/20/2019 ??? Family history of rheumatoid arthritis 09/04/2015 ??? Type 2 diabetes mellitus ([facility]) 09/03/2015 ??? Anxiety and depression 05/12/2010 ??? Migraine with aura and without status migrainosus, not intractable Past Medical History: Diagnosis Date ??? Anxiety ??? Arthritis 12/05/19- Spine- told years ago ??? Diabetes ([facility]) A1c 10.3 on 11/28/2019 ??? History of [...] Last attempt to quit: 08/07/2019 Years since quittin.7 ??? Smokeless tobacco: Never Used Substance Use [...] to all toes. ??Ulcer plantar left great toe.??Measures??3x 3 x 2 mm. Minimal surrounding hyperkeratotic tissue.??Probes deep but not to bone. Granular woundbase. ??No undermining. ??No purulence. ??No surrounding erythema. No edema. No pain on probing.??No malodor. ??No necrosis. ??Able to extend the toe. ??Unable to flex the toe. ??Protective sensationdiminished. ASSESSMENT: 1. Ulcer of great toe, left, with necrosis of bone ([facility]) 2. Type 2 diabetes mellitus with diabetic polyneuropathy, with long-term current use of insulin ([facility]) No orders of the defined types were placed in this encounter. PLAN: Ms. Luo presents today for follow-up left great toe ulcer with history area of osteomyelitis. I lightly pared down the callus today. This has improved significantly in size and appearance. I pared down the callus today. She is going to continue with the daily dressing changes. She is going to continue with the knee scooter and offloading shoe and insole. She is going to continue with antibiotics. I am going to see her back in 2 to 3 weeks. She knows to call before then if any problems arise and is happy with this plan. Portions of this document have been prepared with speech recognition software or keyboard big data analytics lead techniques. Minor irregularities or keyboarding misprints may be present documented in this encounter Plan of Treatment Upcoming Encounters Date Type Department Care Team (Late st Contact Info) Description 02/21/2024 9:45 EDT Office Visit [facility] Adult Primary Care - [address] [phone] Carrington Calderon MD [address] [facility] 1 [place] [phone] 02/27/2024 8:30 EDT Telemedicine [facility] Sleep Program - [address] [phone] Rn, Sleep 02/29/2024 10:30 EDT Appointment [facility] Radiology Nuclear Medicine and PET [address] [phone] 02/29/2024 14:30 EDT Appointment [facility] Radiology Nuclear Medicine and PET [address] [phone] 03/01/2024 8:00 EDT Appointment [facility] Radiology Nuclear Medicine and PET [address] [phone] 03/01/2024 9:30 EDT Appointment [facility] Radiology Nuclear Medicine and PET [address] [phone] documented as of this encounter Visit Diagnoses Diagnosis Ulcer of great toe, left, with necrosis of bone ([facility])- Primary Type 2 diabetes mellitus with diabetic polyneuropathy, with long-term current use of insulin ([facility]) documented in this encounter
--- OUTSIDE RECORDS SUMMARY | 2023-12-16 00:40 | XMS_ITS | Encounter Summary ---
Author Organization [facility] Address [address] [place] [address] Care Team Providers Care Driller Multiple Spindle Name Role Phone Unavailable Primary Care Provider Unavailabl e Reason for Referral * HYDRAULIC BILLET MAKER (Routine) - Specialty Report Received Specialty Diagnoses / Procedures Referred By Contac t Referred To Contact Diagnoses of unknown anatomic location Procedures US OB FIRST TRIMESTER (LESS THAN 14 WEEKS) TRANSVAGINAL Charu Flynn MD [address] [place] [address] [address] [place] [address] Referral ID Status Reason Start Date Expiration Date V isits Requested Visits Authorized [id number] Specialty Report Received 06/20/2020 1 1 Reason for Visit * Reason Onset Date Comments Follow-up 06/20/2020 Encounter Details Date Type Department Care Team (Late st Contact Info) Description 06/20/2020 Telephone [facility] Women's Services [address] [address] Susana Tomlinson RN Follow-up Social History Tobacco Use Types [...] Telephone Encounter - Susana Tomlinson RN - 06/20/2020 2703 EST Spoke Stella: advised plan per MD team is repeat HCG in 48hrs (06/21), lab closes at 1pm, so go ~1130am, repeat U/S scheduled 06/25/20 @ 11am, will get call for 9am consult, just come at 1045 (U/S & CON (if needed) happen at same time). Ectopic precautions: If you have vaginal bleeding that soaks 1 maxipad (or superplus tampon)/hr >2hrs in a row, pass blood clots >= size of rema, experience dizziness, lightheadedness, SOB, severe abdominal pain not helped with medication, or new onset shoulder or back pain, then you shouldhave someone take you to the ER. Please call us with any concerns or questions. SOUND SYSTEM INSTALLER nurse line [phone], or after hours MD line [phone]. documented in this encounter Plan of Treatment Upcoming Encounters Date Type Department Care Team (Late st Contact Info) Description 02/21/2024 9:45 EDT Office Visit [facility] Adult Primary Care - [address] [phone] Carrington Calderon MD [address] [phone] 02/27/2024 8:30 EDT Telemedicine [facility] Sleep Program - [address] [phone] Rn, Sleep 02/29/2024 10:30 EDT Appointment [facility] Radiology Nuclear Medicine and PET - [address] [phone] 02/29/2024 14:30 EDT Appointment [facility] Radiology Nuclear Medicine and PET [address] [phone] 03/01/2024 8:00 EDT Appointment [facility] Radiology Nuclear Medicine and PET [address] [phone] 03/01/2024 9:30 EDT Appointment [facility] Radiology Nuclear Medicine and PET [address] [phone] documented as of this encounter Results * US OB FIRST [...] 8. View: Sufficient. Impression OB Transvaginal - [id number]. 1. of unknown location with findings that [...] 8. View: Sufficient. Impression OB Transvaginal - [id number]. 1. of unknown location with findings that [...] OF SERVICE: 06/25/2020 Charu Flynn MD IMG OB ORDERA BLES documented in this encounter Visit Diagnoses Diagnosis of unknown anatomic location- Primary state, incidental of unknown anatomic location state, incidental documented in this encounter
--- OUTSIDE RECORDS SUMMARY | 2023-12-16 00:41 | XMS_ITS | Encounter Summary ---
Author Organization [facility] Address [address] [place] [address] Care Team Providers Care Ventilated Rib Fitter Name Role Phone Unavailable Primary Care Provider Unavailabl e Reason for Visit * Reason Onset Date Comments Follow-up 05/05/2020 Encounter Details Date Type Department Care Team (Late st Contact Info) Description 05/05/2020 Telephone [facility] Infectious Disease - [address] [id number] Mushtaq Light, DO 111 [facility], Level [address] [place] [address] Follow-up Social History Tobacco Use Types Packs/Day [...] encounter Miscellaneous Notes * Telephone Encounter - Mushtaq Light, - 05/05/2020 1217 EST Patient had to sign out AMA last evening as she needed assistance with childcare. She is currently back home in [place] is clinically stable. Unfortunately her MRI showed osteomyelitis by report of the great toe. I called in a prescription for Augmentin 875 p.o. twice daily to her pharmacy in [place] and she will pick it up later on today to hold her over until she can be seen by podiatry later on this week to consider possible wound debridement/source control. Patient comfortable with plan. I will set patient up with a formal ID visit once we develop a more long-term plan of what to do for herosteomyelitis which appears to have failed a 6-week course of Ancef/Flagyl. Case discussed with hospitalist this morning and podiatry as well. NICOLE Light staff. documented in this encounter Plan of Treatment Upcoming Encounters Date Type Department Care Team (Late st Contact Info) Description 02/21/2024 9:45 EDT Office Visit [facility] Adult Primary Care - [address] [id number] Carrington Calderon MD [address] [place] [phone] 02/27/2024 8:30 EDT Telemedicine [facility] Sleep Program - [address] [id number] Rn, Sleep 02/29/2024 10:30 EDT Appointment [facility] Radiology Nuclear Medicine and PET [address] [id number] 02/29/2024 14:30 EDT Appointment [facility] Radiology Nuclear Medicine and PET [address] [phone] 03/01/2024 8:00 EDT Appointment [facility] Radiology Nuclear Medicine and PET [address] [phone] 03/01/2024 9:30 EDT Appointment [facility] Radiology Nuclear Medicine and PET [address] [phone] documented as of this encounter Visit Diagnoses Not on filedocumented in this encounter
--- OUTSIDE RECORDS SUMMARY | 2023-12-16 00:41 | XMS_ITS | Encounter Summary ---
Author Organization [facility] Address [address] [place] [address] Care Team Providers Care Plug Grower Name Role Phone Unavailable Primary Care Provider Unavailabl e Reason for Visit * Reason Comments Follow-up Encounter Details Date Type Department Care Team (Late st Contact Info) Description 04/03/2020 13:30 EDT Telemedicine [facility] Infectious Disease - [address] [phone] Tonja Plascencia NP 111 [facility], Level [address] [place] [address] Osteomyelitis of great toe of [...] you have serious difficulty h earing? No 03/06/2020 Are you blind or do you have serious difficulty seeing, even when wearing glasses? No 03/06/2020 Do you have serious difficul ty walking or climbing stairs? (5 years old or older) No 03/06/2020 Because of a physical, menta l, or emotional condition, do you have difficulty doing errands alone such as visiting a doctor's office or shopping? (15 years old or older) No 03/06/2020 Cognitive Status Response Date of Assessm ent Because of a physical, menta l, or emotional condition, do you have serious difficulty concentrating, remembering, or making decisions? (5 years old or older) No 03/06/2020 documented as of this encounter Progress Notes * Tonja Plascencia APRN - 04/03/2020 1330 EDT Due to computer system disruption, additional clinical information for this visit is Scanned Note. For patients, please refer to guidance in [employer] on how to locate information. Generally this information will appear as a scanned documents saved in My Documents activity. documented in this encounter Plan of Treatment Upcoming Encounters Date Type Department Care Team (Late st Contact Info) Description 02/21/2024 9:45 EDT Office Visit [facility] Adult Primary Care - [address] [phone] Carrington Calderon MD 1 [facility] 1 [place] [address] 02/27/2024 8:30 EDT Telemedicine [facility] Sleep Program - [address] [place] [address] Rn, Sleep 02/29/2024 10:30 EDT Appointment [facility] Radiology Nuclear Medicine and PET [address] [phone] 02/29/2024 14:30 EDT Appointment [facility] Radiology Nuclear Medicine and PET - [address] [phone] 03/01/2024 8:00 EDT Appointment [facility] Radiology Nuclear Medicine and PET [address] [phone] 03/01/2024 9:30 EDT Appointment [facility] Radiology Nuclear Medicine and PET [address] [id number] documented as of this encounter Visit Diagnoses Diagnosis Osteomyelitis of great toe of left foot (HCC-CMS)- Primary documented in this encounter
--- OUTSIDE RECORDS SUMMARY | 2023-12-16 00:41 | XMS_ITS | Encounter Summary ---
Author Organization [facility] Address [address] [place] [address] Care Team Providers Care Credit Associate Name Role Phone Unavailable Primary Care Provider Unavailabl e Reason for Visit * Reason Onset Date Comments Home Health 03/25/2020 Encounter Details Date Type Department Care Team (Late st Contact Info) Description 03/25/2020 Telephone [facility] Adult Primary Care - [address] [phone] Tonja Alejandro PA-C [facility] [address] [place] [phone] Home Health Social History Tobacco Use Types Packs/Day Years [...] No 03/06/2020 documented as of this encounter Miscellaneous Notes * Telephone Encounter - Dayana Cosme - 03/25/2020 1606 EDT Kylah called from [facility] stating Patients Heart Rate has been elevated at 100-120 per min documented in this encounter Plan of Treatment Upcoming Encounters Date Type Department Care Team (Late st Contact Info) Description 02/21/2024 9:45 EDT Office Visit [facility] Adult Primary Care - [address] [phone] Carrington Calderon MD [address] [phone] 02/27/2024 8:30 EDT Telemedicine [facility] Sleep Program - [address] [address] Rn, Sleep 02/29/2024 10:30 ED[facility] Rad[facility] Nuclear Medicine and PET - [address] [address] 02/29/2024 14:30 EDT Appointment [facility] Radiology Nuclear Medicine and PET - [address] [address] 03/01/2024 8:00 EDT [facility] Rad[facility] Nuclear Medicine and PET - [address] [address] 03/01/2024 9:30 EDT [facility] Rad[facility] Nuclear Medicine and PET [address] [address] documented as of this encounter Visit Diagnoses Not on filedocumented in this encounter
--- OUTSIDE RECORDS SUMMARY | 2023-12-16 00:41 | XMS_ITS | Encounter Summary ---
Author Organization [facility] Address [address] [place] [address] Care Team Providers Care Relationship Specialist Name Role Phone Unavailable Primary Care Provider Unavailabl e Reason for Visit * Reason Onset Date Comments Abnormal Lab 05/05/2020 Encounter Details Date Type Department Care Team ([facility] st Contact Info) Description 05/05/2020 Telephone [facility] Medicine [address] [address] Shari Grider, DO [address] [place] [address] Abnormal Lab Social History Tobacco Use Types Packs/Day Years [...] encounter Miscellaneous Notes * Telephone Encounter - Shari Grider DO - 05/05/2020 7487 EST Lab called with critical result - blood culture positive for gram positive bacilli at 37 hours in 1/2 aerobic bottles. Case discussed with Dr. You who notes patient was well-appearing when she left AMA last night. Will check in with her tomorrow AM and let her outpatient care team know. Shari Grider DO 05/05/20 22:20 Family Medicine PGY-3 Pager #[phone] documented in this encounter Plan of Treatment Upcoming Encounters Date Type Department Care Team (Late st Contact Info) Description 02/21/2024 9:45 EDT Office Visit [facility] Adult Primary Care - [address] [address] Carrington Calderon MD 1 [facility] 1 [place] [phone] 02/27/2024 8:30 EDT Telemedicine [facility] Sleep Program - [address] [address] Rn, Sleep 02/29/2024 10:30 ED[facility] Radiology Nuclear Medicine and PET - [address] [phone] 02/29/2024 14:30 EDT Appointment [facility] Radiology Nuclear Medicine and PET - [address] [phone] 03/01/2024 8:00 EDT Appointment [facility] Radiology Nuclear Medicine and PET - [address] [phone] 03/01/2024 9:30 EDT Appointment [facility] Radiology Nuclear Medicine and PET - [address] [phone] documented as of this encounter Visit Diagnoses Not on filedocumented in this encounter
--- OUTSIDE RECORDS SUMMARY | 2023-12-16 00:41 | XMS_ITS | Encounter Summary ---
Author Organization [facility] Address [address] [place] [address] Care Team Providers Care Miller Wood Flour Name Role Phone Unavailable Primary Care Provider Unavailabl e Reason for Visit * Reason Comments Foot Problem Encounter Details Date Type Department Care Team (Late st Contact Info) Description 03/25/2020 8:30 EDT Office Visit [facility] Foot & Ankle Program - [address] [address] Elza Navarro DPM [address] [place] [phone] Ulcer of great toe, left, with necrosis of bone ([facility]) (Primary Dx); Type 2 diabetes mellitus with diabetic polyneuropathy, with long-term current use of insulin ([facility]) Social History Tobacco Use Types Packs/Day Years [...] have Coronavirus / COVID-19? No / Unsure 03/25/2020 8:35 EDT documented as of this encounter Functional [...] Progress Notes * Elza Navarro, DPM - 03/25/2020 0830 EDT Images from the original note were not included. Cristy Luo is a very pleasant 35 y.o. female patient who presents for follow up left great toe ulcer, osteomyelitis. She reports that she has been doing well. Pain in the toe has resolved, andshe has been very pleased with its. She believes the wound is getting smaller. DNA has been coming once a week and her has been doing the dressing changes the other days of the week. She has been wearing the surgical shoe. She has been trying to limit her activity- she has been out of work. Overall she is feeling well denies any nausea, vomiting, fever, chills. Patient Active Problem List Diagnosis Date Noted ??? Osteomyelitis of great toe of left foot ([facility]) 03/12/2020 Priority: Medium ??? Diabetic foot ulcer associated with diabetes mellitus due to underlying condition ([facility]) 03/07/2020 Priority: Medium ??? Diabetic foot infection ([facility]) 03/06/2020 Priority: Medium ??? Diabetic foot ulcer ([facility]) 03/06/2020 Priority: Medium ??? Cellulitis of great toe of left foot 11/26/2019 Priority: Medium ??? Chronic midline low back pain without sciatica 11/26/2019 Priority: Medium ??? Chronic left ear pain 09/04/2015 Priority: Medium ??? Encounter for sterilization 11/20/2019 ??? Family history of rheumatoid arthritis 09/04/2015 ??? Type 2 diabetes mellitus ([facility]) 09/03/2015 ??? Anxiety and depression 05/12/2010 ??? Migraine with aura and without status migrainosus, not intractable Past Medical History: Diagnosis Date ??? Anxiety ??? Arthritis 12/05/19- Spine- told years ago ??? Diabetes ([facility]) A1c 10.3 on 11/28/2019 ??? History of [...] Last attempt to quit: 08/07/2019 Years since quittin.6 ??? Smokeless tobacco: Never Used Substance Use [...] Outpatient Medications Medication Sig Dispense Refill ??? blood glucose meter One Touch Verio Flex meter. 1 Each 0 ??? blood glucose test strips One Touch Verio IQ or other brand compatible with meter and covered by patient's insurance. Testing QID. 100 Each 5 ??? ceFAZolin 2,000 mg in sodium chloride 0.9 % 50 mL Inject 2,000 mg into the vein every 8 hours for 40 days. Or continue until follow-up appointment with ID. Compound in patient ready to use form. Pharmacy may adjust diluent and/or volume. 0 ??? diphenhydrAMINE (BENADRYL) 50 mg capsule Take 1 Cap by mouth as needed for up to 1 dose (hives). (Patient not taking: Reported on 03/13/2020) 2 Cap 0 ??? insulin aspart U-100 (NOVOLOG FLEXPEN) 100 unit/mL (3 mL) injectable pen Inject 9 Units into the skin 3 times daily with meals. 30 mL 2 ??? insulin glargine (LANTUS SOLOSTAR) 100 unit/mL (3 mL) injection pen Inject 30 Units into the skin at bedtime for 90 days. 27 mL 3 ??? IV Infusion Pump Accessory infusion set Use as directed. Order includes administration suppliesand pump (if required), and catheter care supplies for home IV therapy. 0 ??? lancets One Touch Delica or other brand compatible with lancing device and covered by patient'sinsurance. 100 Each 5 ??? metroNIDAZOLE (FLAGYL) 500 mg tablet Take 1 Tab by mouth every 8 hours for 42 days. 126 Tab 0 ??? sodium chloride 0.9 %, flush, flush syringe For valved catheters (Groshong, Vaxcel, Solo PICC, Mid-line, and Groshong Chest Port): Flush all lumens with 10 mL every week if not in use. Flush 10 mL before and 10 mL after each medication dose (20 mL after vancomycin doses). Flush with 20 mL afterblood draws. Dispense quantity sufficient. 1 Box PRN No current facility-administered medications for this visit. [...] less than 3 seconds to all toes. Ulcer plantar left great toe, as below. Measures 5x 5 mm. Probes deep but no probe to bone. Granular wound base. No undermining. No purulence. No surrounding erythema. No pain on probing. No malodor. No necrosis. Able to extend the toe. Unable to flex the toe. Protective sensation diminished. Left great toe ulcer after debridement: ASSESSMENT: 1. Ulcer of great toe, left, with necrosis of bone ([facility]) 2. Type 2 diabetes mellitus with diabetic polyneuropathy, with long-term current use of insulin ([facility]) No orders of the defined types were placed in this encounter. PLAN: Ms. Luo presents today for follow-up left great toe ulcer, osteomyelitis. This has improved in size and appearance since I saw her in the hospital. No longer probes to bone, though does still probedeep. No signs of acute infection. We discussed these findings. She is going to continue with the daily packing changes. She is going to continue to limit her activity and wear the surgical shoe. A note was written to stay out of work until her next appointment with me. She is going to continue to work on her blood glucose levels-we reviewed how these affect wound healing. I am going to see her back in approximately 2 weeks. She knows to call before then if any problems arise and is happy at this point. Instructions for [facility]: Change dressing to left foot daily. Okay to share responsibilities with . Pack left great toe wound with 1/4 inch plain packing. Applied well-padded gauze dressing. Applylight Dillon bandage. She is to follow-up with me on 04/08/20. Portions of this document have been prepared with speech recognition software or keyboard sap data architect techniques. Minor irregularities or keyboarding misprints may be present * Swathi Tesfaye LPN - 03/25/2020 0830 EDT Call to [facility] with wound care orders. SWATHI TESFAYE LPN documented in this encounter Plan of Treatment Upcoming Encounters Date Type Department Care Team (Late st Contact Info) Description 02/21/2024 9:45 EDT Office Visit [facility] Adult Primary Care - [address] [phone] Carrington Calderon MD [address] [place] [phone] 02/27/2024 8:30 EDT Telemedicine [facility] Sleep Program - [address] [phone] Rn, Sleep 02/29/2024 10:30 EDT Appointment [facility] Radiology Nuclear Medicine and PET [address] [phone] 02/29/2024 14:30 EDT Appointment [facility] Radiology Nuclear Medicine and PET [address] [phone] 03/01/2024 8:00 EDT Appointment [facility] Radiology Nuclear Medicine and [address] [phone] 03/01/2024 9:30 EDT Appointment [facility] Radiology Nuclear Medicine and PET [address] [phone] documented as of this encounter Visit Diagnoses Diagnosis Ulcer of great toe, left, with necrosis of bone (HCC-CMS)- Primary Type 2 diabetes mellitus with diabetic polyneuropathy, with long-term current use of insulin (HCC-CMS) documented in this encounter
--- OUTSIDE RECORDS SUMMARY | 2023-12-16 00:41 | XMS_ITS | Encounter Summary ---
Author Organization [facility] Address [address] [place] [address] Care Team Providers Care Reset Merchandiser Name Role Phone Unavailable Primary Care Provider Unavailabl e Encounter Details Date Type Department Care Team ([facility] Contact Info) Description 03/21/2020 Documentation Visit [facility] - [address] [place] [address] Karthikeyan Crook, RN [address] [place] [address] Social History Tobacco Use Types Packs/Day Years [...] have Coronavirus / COVID-19? No / Unsure 03/06/2020 18:09 EDT documented as of this encounter Functional [...] as of this encounter Progress Notes * Karthikeyan Crook, MARCELO - 03/21/2020 8854 EDT Patient: Cristy Luo is a 35 y.o. female. Allergies: Citalopram, Other - see comments, and Advil [ibuprofen] LDA: PICC Single Lumen 03/11/20 Basilic CAJ with 3CG Valved Power Inject (Active) Assessment: Medication Order Review Response to therapy?: Improving Change in therapy/dose/frequency: No Side effects or intolerance: None Administration or equipment issues: No IV Assessment: Within defined limits Stella c/o that the Flagyl po tastes terrible and makes her nauseous. We recommended that she take themedication with food or take a lozenge. If she continues to have issues she will call ID. Plan: Patient has nearly exhausted all drug/supplies at home. We will send out next shipment of abx and supplies on 03/25/20. KARTHIKEYAN CROOK RN 03/21/2020 14:10 * [place], [facility] - 03/21/2020 5109 EDT Patient: Cristy Luo is a 35 y.o. female. Allergies: Citalopram, Other - see comments, and Advil [ibuprofen] Care Plan: Cefazolin Agent Generation Dosing Range CrCl 30-50ml/min CrCl 10-30ml/min CrCl <10ml/min Cefazolin 1 1 - 2g q8h 100 % q12h 50 % q12h 50 % q24h Ceftazidime 3 1 - 2g q8h 100 % q12h 100 % q24h 50 % q24 h Ceftriaxone 3 1 - 2g q24h 100% 100% 100% Cefepime 4 0.5 - 2g q8-12h 0.5 - 2g q12-24h 0.5 - 2g q24h 0.25 - 1 g q24h Therapy Related Problem List Goals of therapy Initial 7-14 Days Monitoring/Interventions Potential for failure to respond to therapy Eradicate / Suppress Infection Appropriate Dose X Dose / frequency checked X X S&S of infection: fever, pain, redness, swelling X X Assess compliance. Re-assess as needed. X X WBC, CRP, CRPP, sed rate, per ID X Wound healing, if applicable Potential for Adverse Reaction GI Upset Hypersensitivity Neutropenia / leucopenia Hepatotoxicity (rare) Drug / food, drug / drug, drug / disease interactions Reduce potential for possible allergic reaction. Avoid hematologic effects w/prolonged treatment Avoid liver damage w/prolonged therapy. Minimize potential interactions X Assess for nausea, vomiting, or diarrhea X Obtain allergy history. Review for history of penicllin reaction. Assess for rash. Provide anaphylaxis kit. Instruct patient to seek medical attention if necessary, and/or notify MD office & HIstaff X X Contact MD for significant changes in serum creatinine X X CBC w/differential. Contact MD if abnormal X X Liver function tests, protracted therapy. Assess signs of liver toxicity (jaundice). Contact MD. X X Drug interactions: Warfarin Other: Potential for catheter related events Phlebitis, loss of patency, injection site reaction, line sepsis Minimize catheter related events for duration of therapy X Monitor for signs of catheter problems (sluggishness, migration, redness, itching, inflammation, pain, fever). Instruct patient to contact nurse and/or MD. Contact MD. Subjective: Response to therapy?: Improving Change in therapy/dose/frequency: No Side effects or intolerance: None Administration or equipment issues: No IV Assessment: Within defined limits Objective: Labs: Creatinine Date Value Ref Range Status 03/18/2020 0.41 (L) 0.52 - 1.04 mg/dL Final 03/10/2020 0.50 (L) 0.52 - 1.04 mg/dL Final 03/08/2020 0.42 (L) 0.52 - 1.04 mg/dL Final C-Reactive Protein Date Value Ref Range Status 03/18/2020 <7.0 <10.0 mg/L Final 03/06/2020 27.7 (H) <10.0 mg/L Final 03/04/2020 33.5 (H) <10.0 mg/L Final WBC Date Value Ref Range Status 03/18/2020 11.64 4.00 - 12.40 K/cmm Final 03/10/2020 12.33 4.00 - 12.40 K/cmm Final 03/08/2020 11.24 4.00 - 12.40 K/cmm Final Sed. Rate Westergren Date Value Ref Range Status 03/18/2020 37 (H) 0 - 20 mm/hr Final Comment: Note: Sample greater than 4 hours old (but less than 12 hours) when tested. If refrigerated, sampleis stable when tested within 12 hours of collection. 03/06/2020 25 (H) 0 - 20 mm/hr Final 03/04/2020 54 (H) 0 - 20 mm/hr Final Neutrophils Date Value Ref Range Status 03/18/2020 55.0 % Final 03/06/2020 62.7 % Final 11/28/2019 45.7 % Final Eosinophils Date Value Ref Range Status 03/18/2020 3.4 % Final 03/06/2020 2.2 % Final 11/28/2019 2.6 % Final Total Alkaline Phosphatase Date Value Ref Range Status 03/08/2016 122 38 - 126 U/L Final Alkaline Phosphatase Date Value Ref Range Status 03/06/2020 108 38 - 126 U/L Final 11/28/2019 100 38 - 126 U/L Final ALT Date Value Ref Range Status 03/06/2020 12 <35 U/L Final 11/28/2019 14 <35 U/L Final 10/26/2018 22 <53 U/L Final AST Date Value Ref Range Status 03/06/2020 18 15 - 46 U/L Final 11/28/2019 17 15 - 46 U/L Final 10/26/2018 14 (L) 15 - 46 U/L Final Microbiology: Other: Assessment: Medication Order Review Allergies/Sensitivities Reviewed: Yes Appropriateness of Med, Dose, Frequency, Route of Admin Reviewed: Yes Relevant Labs Reviewed: Yes Therapeutic Duplication Review: Yes Drug-Drug Interaction Review: Yes Drug/Food Interaction Review: No Contraindication Review: Yes Reviewed home infusion nurse assessment. Labs reviewed from 03/18/20. Patient has nearly exhausted all remaining drug and supplies in the home. Plan: Continue current home infusion therapy with cefazolin 2gm IV every 8 hours for total duration of 6 weeks. Anticipated end date 04/21/20. Mixed and sent enough drug and supplies through 04/02/20. Delivery to pt's home tomorrow. Monitor labs per care plan. PENNY GROVE RPH 03/24/2020 9:22 documented in this encounter Plan of Treatment Upcoming Encounters Date Type Department Care Team (Late st Contact Info) Description 02/21/2024 9:45 EDT Office Visit [facility] - [address] [id number] Carrington Calderon MD 1 [facility] 1 [place] [address] 02/27/2024 8:30 EDT Telemedicine [facility] Sleep Program - [address] [phone] Rn, Sleep 02/29/2024 10:30 EDT Appointment [facility] Radiology Nuclear Medicine and PET - [address] [phone] 02/29/2024 14:30 EDT Appointment [facility] Radiology Nuclear Medicine and PET - [address] [id number] 03/01/2024 8:00 EDT Appointment [facility] Radiology Nuclear Medicine and PET - [address] [id number] 03/01/2024 9:30 EDT Appointment [facility] Radiology Nuclear Medicine and PET - [address] [phone] documented as of this encounter Visit Diagnoses Not on filedocumented in this encounter
--- OUTSIDE RECORDS SUMMARY | 2023-12-16 00:41 | XMS_ITS | Encounter Summary ---
Author Organization [facility] Address [address] [place] [address] Care Team Providers Care Process Lead Name Role Phone Unavailable Primary Care Provider Unavailabl e Encounter Details Date Type Department Care Team (Latest Contact Info) Description 03/27/2020 Travel Social History Tobacco Use Types Packs/Day [...] No 03/06/2020 documented as of this encounter Plan of Treatment Upcoming Encounters Date Type Department Care Team (Late st Contact Info) Description 02/21/2024 9:45 EDT Office Visit [facility] Adult Primary Care - [address] [phone] Carrington Calderon MD [address] [phone] 02/27/2024 8:30 EDT Telemedicine [facility] Sleep Program - [address] [address] Rn, Sleep 02/29/2024 10:30 EDT Appointment [facility] Radiology Nuclear Medicine and PET - [address] [phone] 02/29/2024 14:30 EDT Appointment [facility] Radiology Nuclear Medicine and PET [address] [id number] 03/01/2024 8:00 EDT Appointment [facility] Radiology Nuclear Medicine and PET [address] [phone] 03/01/2024 9:30 EDT Appointment [facility] Radiology Nuclear Medicine and PET - [address] [address] documented as of this encounter Visit Diagnoses Not on filedocumented in this encounter
--- OUTSIDE RECORDS SUMMARY | 2023-12-16 00:41 | XMS_ITS | Encounter Summary ---
Author Organization [facility] Address [address] [place] [address] Care Team Providers Care Drivers License Examiner Name Role Phone Unavailable Primary Care Provider Unavailabl e Reason for Visit * Reason Comments Follow-up Encounter Details Date Type Department Care Team (Late st Contact Info) Description 04/18/2020 10:30 EST Office Visit [facility] Foot & Ankle Program - [address] [address] Elza Navarro DPM [address] [place] [phone] Ulcer of great toe, left, with necrosis of bone ([facility]) (Primary Dx); Type 2 diabetes mellitus with diabetic polyneuropathy, with long-term current use of insulin ([facility]) Social History Tobacco Use Types Packs/Day [...] Progress Notes * Elza Navarro, DPM - 04/18/2020 0000 EST [facility] FOOT AND ANKLE PROGRAM PROGRESS / FOLLOWUP NOTE - 04/18/2020 REASON FOR VISIT: This was orthopedic foot and ankle podiatry progress note. HISTORY OF PRESENT ILLNESS: Ms Luo presents today for followup chronic ulcer, left great toe withhistory of osteomyelitis. She reports she believes the toe has been doing well. She has been doing the dressing changes in combination with visiting nursing. She has been wearing her surgical shoe. 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 She is due to finish her antibiotics on Tuesday or Tuesday. She saw Dr Light for this earlier this week. Overall, she is feelingwell today. REVIEW OF SYSTEMS: Denies nausea, vomiting, fever or chills. PHYSICAL EXAMINATION: General: Alert, oriented x3, in no acute distress. Lower extremity problem focused: Left lower extremity palpable pedal pulses. Skin temperature gradient within normal limits. Capillary filling time less than 3 seconds to all toes. Ulcer, plantar left great toe measuring 8 x 5 mm. Moderate surrounding hyperkeratotic tissue. Probes deep, but no probe to bone. No purulence expressed. No erythema or edema to the toe. No drainage, malodor, necrosis. Weakness with plantar flexion of the great toe. Protective sensation absent. ASSESSMENT: Left great toe ulcer with history of osteomyelitis. PLAN: Ms Luo presents today for followup chronic ulcer, left great toe with osteomyelitis. Wound is no longer probes to bone; however, still probes deep and is larger in size since last visit. We discussed that this needs regular debridement and better offloading to heal. I did debride the wound today, skin and subcutaneous tissue, less than 20 cm2. She is going to continue with the dressing changes. She is going to get fitted for an offloading diabetic PegAssist insole for surgical shoe today. She is going to continue to out of work. I wrote a note for work. I discussed her case with Dr Light and yolis to stop the IV antibiotics as scheduled over the weekend. We will monitor off antibiotics for now. We discussed if she notices any signs of infection or worsening to call the office immediately. I am going to see her back in approximately 2 weeks. She knows to call before then if any problems arise and is happy with this plan. Elza Navarro DPM / SWAPNIL Dictation ID: [id number] cc: documented in this encounter Plan of Treatment Upcoming Encounters Date Type Department Care Team (Late st Contact Info) Description 02/21/2024 9:45 EDT Office Visit [facility] Adult Primary Care [address] [address] Carrington Calderon MD 1 [facility] Level 1 [place] [phone] 02/27/2024 8:30 EDT Telemedicine [facility] Sleep Program - [address] [place] [address] [place] [address] Rn, Sleep 02/29/2024 10:30 EDT Appointment [facility] Radiology Nuclear Medicine and PET [address] [id number] 02/29/2024 14:30 ED[facility] - [address] [id number] 03/01/2024 8:00 EDT Appointment [facility] Radiology Nuclear Medicine and PET - [address] [phone] 03/01/2024 9:30 EDT Appointment [facility] Radiology Nuclear Medicine and PET [address] [phone] documented as of this encounter Visit Diagnoses Diagnosis Ulcer of great toe, left, with necrosis of bone ([facility])- Primary Type 2 diabetes mellitus with diabetic polyneuropathy, with long-term current use of insulin ([facility]) documented in this encounter
--- OUTSIDE RECORDS SUMMARY | 2023-12-16 00:41 | XMS_ITS | Encounter Summary ---
Author Organization [facility] Address [address] [place] [address] Care Team Providers Care Registered Client Associate Name Role Phone Carrington Calderon MD Primary Care Provi anders Abigail Díaz Unavailable [phone] Carmelo Hendrickson Unavailable Unavailable Encounter Details Date Type Department Care Team (Late st Contact Info) Description 04/01/2020 Lab Requisition [facility] Pathology & Laboratory Medicine - [address] [address] Mushtaq Light, DO 111 [facility], Level [address] [place] [phone] Encounter for other general examination Social History [...] Info) Description 02/21/2024 9:45 EDT Office Visit [facility] Adult Primary Care - [address] [phone] Carrington Calderon MD [address] [facility] 1 [place] [phone] 02/27/2024 8:30 EDT Telemedicine [facility] Sleep Program - [address] [phone] Rn, Sleep 02/29/2024 10:30 EDT Appointment [facility] Radiology Nuclear Medicine and PET - [address] [address] 02/29/2024 14:30 EDT Appointment [facility] Radiology Nuclear [facility] and [address] [address] 03/01/2024 8:00 EDT Appointment [facility] Radiology Nuclear [facility] and [address] [address] 03/01/2024 9:30 EDT Appointment [facility] Radiology Nuclear [facility] and [address] [address] documented as of this encounter Procedures Procedure Name Priority Date/Time Associated Diagnosis Comments SED RATE Today 04/01/2020 10:10 EDT Encounter for other general examination COMPLETE BLOOD COUNT AND DIFFERENTIAL Today 04/01/2020 10:10 EDT Encounter for other general examination C REACTIVE PROTEIN Today 04/01/2020 10 :10 EDT Encounter for other general examination CREATININE Today 04/01/2020 10:10 EDT Encounter for other general examination documented in this encounter Results * (ABNORMAL) SED. RATE:ILEANAERGREN (04/01/2020 10:10 EDT) Sed Rate 30(H) 0 - 20 mm/hr 04/01/2020 20:32 EDT [facility] Comment:Note: Sample greater than 4 hours old (but less than 12 hours) when tested. If refrigerated, sample is stable when tested within 12 hours of collection. Blood VENOUS BLOOD / Unknown Non-Lab Collect / Unknown 04/01/2020 10:10 EDT 04/01/2020 18:42 EDT Mushtaq Light DO HEMATOLOGY & PF4 OR DERABLES [facility] [address] [place] [address] * (ABNORMAL) COMPLETE BLOOD COUNT AND DIFFERENTIAL (04/01/2020 10:10 EDT) WBC 10.42 4.00 - 12.40 K/cmm 04/01/2020 19:15 [facility] RBC 4.54 3.86 - 5.04 M/cmm 04/01/2020 19:15 [facility] Hemoglobin 13.7 11.6 - 15.2 gm/dL 04/01/2020 19:15 [facility] HCT 40.9 34.9 - 44.4 % 04/01/2020 19:15 [facility] MCV 90 81 - 98 fl 04/01/2020 19:15 [facility] MCH 30.2 26.7 - 33.3 pg 04/01/2020 19:15 [facility] MCHC 33.5 32.1 - 35.9 gm/dL 04/01/2020 19:15 [facility] RDW-CV 12.4 <14.7 % 04/01/2020 19:15 [facility] RDW-SD 40.9 <50.4 fl 04/01/2020 19:15 [facility] PLT 336 141 - 377 K/cmm 04/01/2020 19:15 [facility] MPV 10.5 9.5 - 12.7 fl 04/01/2020 19:15 [facility] % Neutrophils 48.0 % 04/01/2020 19:15 [facility] % Lymphocytes 38.5 % 04/01/2020 19:15 [facility] % Monocytes 8.1 % 04/01/2020 19:15 [facility] % Eosinophils 4.5 % 04/01/2020 19:15 [facility] % Basophils 0.7 % 04/01/2020 19:15 [facility] % Immature Grans 0.2 % 04/01/20 20 19:15 [facility] Absolute Neutrophils 5.01 2.20 - 8.85 K/cmm 04/01/2020 19:15 [facility] Absolute Lymphocytes 4.01(H) 1.09 - 3.30 K/cmm 04/01/2020 19:15 [facility] Absolute Monocytes 0.84(H) 0.10 - 0.80 K/cmm 04/01/2020 19:15 [facility] Absolute Eosinophils 0.47 0.03 - 0.61 K/cmm 04/01/2020 19:15 [facility] ABS Basophils 0.07 0.01 - 0.11 K/cmm 04/01/2020 19:15 [facility] Absolute Immature Grans 0.02 0.00 - 0.06 K/cmm 04/01/2020 19:15 [facility] Type of Differential: Auto 04/01/2020 19:15 [facility] Blood VENOUS BLOOD / Unknown Non-Lab Collect / Unknown 04/01/2020 10:10 EDT 04/01/2020 18:42 EDT Mushtaq Light DO PACKAGES & DNA PROB E ORDERABLES Performing Organization Address [facility] de Phone Number [facility] [address] [place] [address] * (ABNORMAL) CREATININE (04/01/2020 10:10 EDT) Creatinine 0.37(L) 0.52 - 1.04 mg/dL 04/01/2020 19:10 EDT [facility] eGFR 139 >60 mL/min/1.7 3m2 04/01/2020 19:10 T [facility] Comment:eGFR calculated gil curtis CKD-EPI equation for non- Americans. Multiply eGFR by 1.16 for patients. Blood VENOUS BLOOD / Unknown Non-Lab Collect / Unknown 04/01/2020 10:10 EDT 04/01/2020 18:42 EDT Mushtaq Light DO CHEMISTRY & BLOOD G ORDERABLES Performing Organization Address [facility] Co de Phone Number [facility] [address] [place] [address] * C REACTIVE PROTEIN (04/01/2020 10:10 EDT) C-Reactive Protein <7.0 <10.0 mg/L 04/01/2020 19:10 EDT [facility] Blood VENOUS BLOOD / Unknown Non-Lab Collect / Unknown 04/01/2020 10:10 EDT 04/01/2020 18:42 EDT Mushtaq Light DO CHEMISTRY & BLOOD G ORDERABLES [facility] [address] [place] [address] documented in this encounter Visit Diagnoses Diagnosis Encounter for other general examination documented in this encounter Additional Health Concerns Infection Onset Date Last Indicated Resolved Time R/O COVID-19 08/04/2020 08/04/2020 08/04/2020 11:4 0 EST documented as of this encounter Care Teams Registered Client Associate Relationship Specialty Start Date End Date Carrington Calderon MD [address] [facility] 1 [place] [phone] PCP - General Internal Medicine - Primary Care 12/09/20 Abigail Díaz Master Rigger 04/21/23 Carmelo Hendrickson Coordinator 12/01/23 documented as of this encounter
--- OUTSIDE RECORDS SUMMARY | 2023-12-16 00:41 | XMS_ITS | Encounter Summary ---
Author Organization [facility] Address [address] [place] [address] Care Team Providers Care Radiator Mechanic Name Role Phone Carrington Calderon MD Primary Care Provi anders Abigail Díaz Unavailable Carmelo Hendrickson Unavailable Unavailable Encounter Details Date Type Department Care Team (Late st Contact Info) Description 06/19/2020 Lab Requisition [facility] Pathology & Laboratory Medicine - [address] [address] Mushtaq Light, DO 111 [facility], Level 5 [place] [address] Other acute osteomyelitis, left ankle and foot (HCC-CMS) Social History Tobacco Use Types Packs/Day Years [...] [facility] Adult Primary Care - [address] [phone] Carrington Calderon MD [address] [phone] 02/27/2024 8:30 EDT Telemedicine [facility] Sleep Program - [address] [phone] Rn, Sleep 02/29/2024 10:30 EDT Appointment [facility] Radiology Nuclear Medicine and PET [address] [address] 02/29/2024 14:30 EDT Appointment [facility] Radiology Nuclear Medicine and PET [address] [address] 03/01/2024 8:00 EDT Appointment [facility] Radiology Nuclear Medicine and PET [address] [address] 03/01/2024 9:30 EDT Appointment [facility] Radiology Nuclear Medicine and PET [address] [address] documented as of this encounter Procedures Procedure Name Priority Date/Time Associated Diagnosis Comments SED RATE After X-Ray 04/08/2020 12:00 EST Other acute osteomyelitis, left ankle and foot ([facility]) COMPLETE BLOOD COUNT AND DIFFERENTIAL After X-Ray 04/08/2020 12:00 EST Other acute osteomyelitis, left ankle and foot ([facility]) C REACTIVE PROTEIN After X-Ray 04/08/2020 12 :00 EST Other acute osteomyelitis, left ankle and foot ([facility]) CREATININE After X-Ray 04/08/2020 12:00 EST Other acute osteomyelitis, left ankle and foot ([facility]) documented in this encounter Results * (ABNORMAL) SED. RATE:DANEREN (04/08/2020 12:00 EST) Sed Rate 29(H) 0 - 20 mm/hr 07/01/2020 9:21 EST [facility] Blood VENOUS BLOOD / Unknown 04/08/2020 12:00 EST 06/19/2020 10:05 EST Mushtaq Light DO HEMATOLOGY & PF4 OR DERABLES [facility] [address] [place] [address] * (ABNORMAL) COMPLETE BLOOD COUNT AND DIFFERENTIAL (04/08/2020 12:00 EST) WBC 13.10(H) 4.00 - 12.40 K/cmm 07/01/2020 9:20 [facility] RBC 4.42 3.86 - 5.04 M/cmm 07/01/2020 9:20 [facility] Hemoglobin 13.3 11.6 - 15.2 gm/dL 07/01/2020 9:20 [facility] HCT 38.1 34.9 - 44.4 % 07/01/2020 9:20 [facility] MCV 86 81 - 98 fl 07/01/2020 9:20 [facility] MCH 30.1 26.7 - 33.3 pg 07/01/2020 9:20 [facility] MCHC 34.9 32.1 - 35.9 gm/dL 07/01/2020 9:20 [facility] RDW-CV 12.5 <14.7 % 07/01/2020 9:20 [facility] RDW-SD 39.4 <50.4 fl 07/01/2020 9:20 [facility] PLT 336 141 - 377 K/cmm 07/01/2020 9:20 [facility] MPV 10.1 9.5 - 12.7 fl 07/01/2020 9:20 [facility] % Neutrophils 54.3 % 07/01/2020 9:20 [facility] % Lymphocytes 34.2 % 07/01/2020 9:20 [facility] % Monocytes 7.4 % 07/01/2020 9:20 [facility] % Eosinophils 3.4 % 07/01/2020 9:20 [facility] % Basophils 0.5 % 07/01/2020 9:20 [facility] % Immature Grans 0.2 % 07/01/19 9:20 [facility] Absolute Neutrophils 7.10 2.20 - 8.85 K/cmm 07/01/2020 9:20 [facility] Absolute Lymphocytes 4.48(H) 1.09 - 3.30 K/cmm 07/01/2020 9:20 [facility] Absolute Monocytes 0.97(H) 0.10 - 0.80 K/cmm 07/01/2020 9:20 [facility] Absolute Eosinophils 0.45 0.03 - 0.61 K/cmm 07/01/2020 9:20 [facility] ABS Basophils 0.07 0.01 - 0.11 K/cmm 07/01/2020 9:20 [facility] Absolute Immature Grans 0.03 0.00 - 0.06 K/cmm 07/01/2020 9:20 [facility] Type of Differential: Auto 07/01/2020 9:20 [facility] Blood VENOUS BLOOD / Unknown 04/08/2020 12:00 EST 06/19/2020 10:05 EST Mushtaq Light DO PACKAGES & DNA PROB E ORDERABLES Performing Organization Address [facility] de Phone Number [facility] [address] [place] [address] * (ABNORMAL) CREATININE (04/08/2020 12:00 EST) Creatinine 0.42(L) 0.52 - 1.04 mg/dL 06/30/2020 12:00 [facility] eGFR 133 >60 mL/min/1.7 3m2 06/30/2020 12:00 [facility] Comment:eGFR calculated gil curtis CKD-EPI equation for non- Americans. Multiply eGFR by 1.16 for patients. Blood VENOUS BLOOD / Unknown 04/08/2020 12:00 EST 06/19/2020 10:05 EST Mushtaq Light DO CHEMISTRY & BLOOD G ORDERABLES Performing Organization Address [facility] Co de Phone Number [facility] [address] [place] [address] * C REACTIVE PROTEIN (04/08/2020 12:00 EST) C-Reactive Protein 7.7 <10.0 mg/L 06/30/2020 12:00 EST [facility] Blood VENOUS BLOOD / Unknown 04/08/2020 12:00 EST 06/19/2020 10:05 EST Mushtaq Light DO CHEMISTRY & BLOOD G ORDERABLES [facility] [address] [place] [address] documented in this encounter Visit Diagnoses Diagnosis Other acute osteomyelitis, left ankle and foot (HCC-CMS) documented in this encounter Additional Health Concerns Infection Onset Date Last Indicated Resolved Time R/O COVID-19 08/04/2020 08/04/2020 08/04/2020 11:4 0 EST documented as of this encounter Care Teams Radiator Mechanic Relationship Specialty Start Date End Date Carrington Calderon MD 1 [facility] 1 [place] [address] PCP - General Internal Medicine - Primary Care 12/09/20 Abigail Díaz Door Tender 04/21/23 Carmelo Hendrickson Coordinator 12/01/23 documented as of this encounter
--- OUTSIDE RECORDS SUMMARY | 2023-12-16 00:41 | XMS_ITS | Encounter Summary ---
Author Organization [facility] Address [address] [place] [address] Care Team Providers Care Rehabilitation Services Manager Name Role Phone Unavailable Primary Care Provider Unavailabl e Reason for Visit * Reason Onset Date Comments Medications Refill 03/21/2020 Encounter Details Date Type Department Care Team (Late st Contact Info) Description 03/21/2020 Refill [facility] Endocrinology - [facility] [address] [place], [place] [phone] Sara Zafar NP 62 [facility] [address] [place] [address] Medications Refill Social History Tobacco [...] No 03/06/2020 documented as of this encounter Ordered Prescriptions Prescription Sig Dispensed Refills Start Date End Da te insulin aspart U-100 (NOVOLOG FLEXPEN) 100 unit/mL (3 mL) injectable penIndications:type 2 diabetes mellitus,as needed with meals. Inject 9 Units into the skin 3 times daily with meals. 30 mL 2 03/21/2020 12/21/2021 documented in this encounter Miscellaneous Notes * Telephone Encounter - Foreign Parr - 03/21/2020 0828 EDT Medication(s) Requested Novolog 9 units after every meal Pharmacy: [facility] Next Visit Date Visit date not found Out of Medication? Yes, totally out of refills per pharmacy. [facility] 03/21/2020 8:28 Has not had any this morning documented in this encounter Plan of Treatment Upcoming Encounters Date Type Department Care Team (Late st Contact Info) Description 02/21/2024 9:45 EDT Office Visit [facility] Adult Primary Care - [address] [address] Carrington Calderon MD [address] [phone] 02/27/2024 8:30 EDT Telemedicine [facility] Sleep Program - [address] [address] Rn, Sleep 02/29/2024 10:[address] [facility] Radiology Nuclear Medicine and PET [address] [phone] 02/29/2024 14:[address] [facility] Radiology Nuclear Medicine and PET [address] [phone] 03/01/2024 8:[address] [facility] Radiology Nuclear Medicine and PET [address] [phone] 03/01/2024 9:[address] [facility] Radiology Nuclear Medicine and [address] [phone] documented as of this encounter Visit Diagnoses Not on filedocumented in this encounter Discontinued Medications Medication Sig Discontinue Reason Start Date End Da te insulin aspart U-100 (NOVOLOG FLEXPEN) 100 unit/mL (3 mL) injectable penIndications:type 2 diabetes mellitus,as needed with meals. Inject 4-6 Units into the skin 3 times daily with meals. Reorder 03/21/2020 documented as of this encounter
--- OUTSIDE RECORDS SUMMARY | 2023-12-16 00:41 | XMS_ITS | Encounter Summary ---
Author Organization [facility] Address [address] [place] [address] Care Team Providers Care Handkerchief Folder Name Role Phone Unavailable Primary Care Provider Unavailabl e Reason for Visit * Reason Comments Telemedicine Video Visit Encounter Details Date Type Department Care Team (Late st Contact Info) Description 03/27/2020 13:30 EDT Telemedicine [facility] Infectious Disease - [address] [phone] Tonja Plascencia NP 111 [facility], Level [address] [place] [address] Osteomyelitis of great toe of [...] of this encounter Progress Notes * Tonja Plascencia, DIRECTOR OF OUTREACH - 03/27/2020 1330 EDT Infectious Disease Clinic OPAT Progress Note Today's Date: 03/27/2020 Visit via: VIDEO. The concept of Telemedicine has been described to the patient. Patient has beeninformed of the anticipated benefits and possible risks. Patient understands the information provided regarding telemedicine, has had the opportunity to ask questions about this information, and all questions have been answered to patient's satisfaction. Patient consents for the use of telemedicinein his/her medical care and authorizes the transmission of any relevant medical information to providers and their staff involved in patient's medical or mental health care. Today's visit was provided through telemedicine video conferencing: The location of the patient : Home The location of the provider: Clinic Exam Room The following staff and their role did participate in today's encounter visit: Tonja Plascencia ?? Patient location: [facility] City/town, State: [place] Estimated driving distance from [place]: 25 miles. Demographics HPI: Cristy Luo is a 35 y.o. year old female following up for OPAT. Patient is a 34. Y.o female who has a past medical history that is significant Type 2 Diabetes, neuropathy, past history morbid obesity. Recently hospitalized with osteomyelitis with a diabetic foot infection. A bone biopsy was performed. Cultures grew staph aureus, strep agalactiae, strep anginosus, and prevotella. MRI confirmed osteomyelitis without any fluid collections. She was d/c to home onIV Cefazolin 2gm q 8 hrs and Metronidazole 500mg q8hrs. She has been performing daily dressing changes and has notice a decrease in the size. Per. Dr Navarro note on 03/25/2020 ulcer is improving in size. No longer probes to the bone, althoughdoes have deep probing. She is tolerating the antibiotics well. She denies any diarrhea, fever, rash. She has not missed any doses. ROS: a 10 point ROS is otherwise negative. Social History: Cristy Luo reports that she has been smoking cigarettes. She started smokingabout 9 years ago. She has a 0.16 pack-year smoking history. She has never used smokeless tobacco. She reports previous alcohol use. She reports current drug use. Drug: Marijuana.. Family History: Reviewed and is non-contributory for a past history of infection or immunocompromised state. Physical Exam: Gen a x 3 in no acute distress ?? Clinical Data Current antimicrobials: Parenteral: cefazolin Oral: Metronidazole Indication: osteomyelitis Start date: 03/12/2020 Planned Stop date: April 202019 Is the stop date contingent on further clinical data? no Is there plan to convert to PO antibiotics upon completion of IV antibiotics: Unclear Microbiology: Blood cultures 03/06: negative to date Bone culture 03/07: Few PMN, few GPC--culture thus far with MSSA, beta strep(formal ID pending) and possibly two other organisms. Other: Left great toe bone culture 03/07: MSSA, strep agalactiae, strep anginosus, prevotella biva Blood cx 03/04: No growth ?? X-ray foot 03/07: No radiographic evidence of osteomyelitis; no soft tissue emphysema MRI foot 03/09: Osteomyelitis distal phalanx, possible proximal phalanx head; rupture of the FHL tendon; no abscess 03/25/2020 Sed rate 40 WBC 13.46 Creatinine 0.44 C-reactive protein <7.0 Adverse Events Adverse symptoms from antibiotics: None Central line type: PICC Central line complications: None ?? Are weekly labs available for review today? Yes. Clinically significant new abnormalities: No Specific lab abnormalities: None Other data reviewed: Assessment/Plan Diabetic Foot Ostemoylitis- Currently on six weeks of IV antibiotics plan is to continue Cefazolin 2g q8 hours and Flagyl 500mg PO q8 hours till April 20. Tolerating antibiotics well. Dressing changes occurring daily. Follow up with Dr Navarro 04/08/2020 Will continue weekly zoom check ins. Follow up Is this the final visit specifically for OPAT? No. Next visit date: 03/27/2020. Does patient need alonger than expected course of OPAT? no documented in this encounter Plan of Treatment Upcoming Encounters Date Type Department Care Team (Late st Contact Info) Description 02/21/2024 9:45 EDT Office Visit [facility] Adult Primary Care - [address] [phone] Carrington Calderon MD [address] [place] [phone] 02/27/2024 8:30 EDT Telemedicine [facility] Sleep Program - [address] [address] Rn, Sleep 02/29/2024 10:30 EDT Appointment [facility] Radiology Nuclear Medicine and PET [address] [phone] 02/29/2024 14:30 EDT Appointment [facility] Radiology Nuclear Medicine and PET [address] [address] 03/01/2024 8:00 EDT Appointment [facility] Radiology Nuclear Medicine and PET [address] [phone] 03/01/2024 9:30 EDT Appointment [facility] Radiology Nuclear Medicine and PET - [address] [address] documented as of this encounter Visit Diagnoses Diagnosis Osteomyelitis of great toe of left foot (HCC-CMS)- Primary documented in this encounter
--- OUTSIDE RECORDS SUMMARY | 2023-12-16 00:41 | XMS_ITS | Encounter Summary ---
Author Organization [facility] Address [address] [place] [address] Care Team Providers Care Curber Name Role Phone Unavailable Primary Care Provider Unavailabl e Encounter Details Date Type Department Care Team (Latest Contact Info) Description 05/03/2020 Travel Social History Tobacco Use Types Packs/Day [...] [facility] Adult Primary Care - [address] [phone] Carrington Calderon MD [address] [phone] 02/27/2024 8:30 EDT Telemedicine [facility] Sleep Program - [address] [phone] Rn, Sleep 02/29/2024 10:30 EDT Appointment [facility] Radiology Nuclear Medicine and PET - [address] [address] 02/29/2024 14:30 EDT Appointment [facility] Radiology Nuclear Medicine and PET [address] [phone] 03/01/2024 8:00 EDT Appointment [facility] Radiology Nuclear Medicine and PET [address] [address] 03/01/2024 9:30 EDT Appointment [facility] Radiology Nuclear Medicine and PET - [address] [address] documented as of this encounter Visit Diagnoses Not on filedocumented in this encounter
--- OUTSIDE RECORDS SUMMARY | 2023-12-16 00:41 | XMS_ITS | Encounter Summary ---
Author Organization [facility] Address [address] [place] [address] Care Team Providers Care Principal Research Economist Name Role Phone Unavailable Primary Care Provider Unavailabl e Reason for Visit * Reason Comments Follow-up Encounter Details Date Type Department Care Team (Latest Contact Info) Description 04/07/2020 10:00 EST Office Visit [facility] [place] [address] Nurse, Id, RN Osteomyelitis of great toe of left foot [...] as of this encounter Progress Notes * Siobhan Bullard RN - 04/07/2020 1000 EST [facility] was unavailable on 04/07/2020. All [facility] clinical notes for this encounter were written on paper and scanned into [facility]. * Patrice Wakefield RN - 04/07/2020 1000 EST Patient arrived 04/07/2020 for a PICC dressing change during Epic downtime during 2019. No note available. PATRICE WAKEFIELD RN documented in this encounter Plan of Treatment Upcoming Encounters Date Type Department Care Team (Late st Contact Info) Description 02/21/2024 9:45 EDT Office Visit [facility] Adult Primary Care - [address] [phone] Carrington Calderon MD 1 [facility] 1 [place] [address] 02/27/2024 8:30 EDT Telemedicine [facility] Sleep Program - [place] [address] [place] [phone] Rn, Sleep 02/29/2024 10:30 EDT Appointment [facility] Radiology Nuclear Medicine and PET [address] [address] 02/29/2024 14:30 EDT Appointment [facility] Radiology Nuclear Medicine and PET - [address] [phone] 03/01/2024 8:00 EDT Appointment [facility] Radiology Nuclear Medicine and PET [address] [phone] 03/01/2024 9:30 EDT Appointment [facility] Radiology Nuclear Medicine and PET [address] [phone] documented as of this encounter Visit Diagnoses Diagnosis Osteomyelitis of great toe of left foot (HCC-CMS)- Primary documented in this encounter
--- OUTSIDE RECORDS SUMMARY | 2023-12-16 00:41 | XMS_ITS | Encounter Summary ---
Author Organization [facility] Address [address] [place] [address] Care Team Providers Care Mortgage Counselor Name Role Phone Carrington Calderon MD Primary Care Provi anders Abigail Díaz Unavailable [phone] Carmelo Hendrickson Unavailable Unavailable Encounter Details Date Type Department Care Team (Late st Contact Info) Description 06/23/2020 Lab Requisition [facility] Pathology & Laboratory Medicine - [facility] [address] [place] [address] Mushtaq Light, DO [address] [facility], [address] [place] [address] Other chronic hematogenous osteomyelitis, left ankle and foot (HCC-CMS) Social [...] 02/21/2024 9:45 EDT Office Visit [facility] Adult Primary Care - [address] [phone] Carrington Calderon MD [address] [facility] [address] [place] [phone] 02/27/2024 8:30 EDT Telemedicine [facility] Sleep Program - [address] [phone] Rn, Sleep 02/29/2024 10:30 EDT Appointment [facility] Radiology Nuclear Medicine and PET [address] [address] 02/29/2024 14:30 EDT Appointment [facility] Radiology Nuclear Medicine and PET [address] [address] 03/01/2024 8:00 EDT Appointment [facility] Radiology Nuclear Medicine and PET [address] [address] 03/01/2024 9:30 EDT Appointment [facility] Radiology Nuclear Medicine and PET [address] [address] documented as of this encounter Procedures Procedure Name Priority Date/Time Associated Diagnosis Comments DIFFERENTIAL MANUAL Today 04/15/2020 1 1:28 EST Other chronic hematogenous osteomyelitis, left ankle and foot ([facility]-CMS) SED RATE After X-Ray 04/15/2020 11:28 EST Other chronic hematogenous osteomyelitis, left ankle and foot (HCC-CMS) COMPLETE BLOOD COUNT AND DIFFERENTIAL After X-Ray 04/15/2020 11:28 EST Other chronic hematogenous osteomyelitis, left ankle and foot (HCC-CMS) C REACTIVE PROTEIN After X-Ray 04/15/2020 11 :28 EST Other chronic hematogenous osteomyelitis, left ankle and foot ([facility]-CMS) CREATININE After X-Ray 04/15/2020 11:28 EST Other chronic hematogenous osteomyelitis, left ankle and foot ([facility]-CMS) documented in this encounter Results * (ABNORMAL) DIFFERENTIAL MANUAL (04/15/2020 11:28 EST) % Neutrophils 48.0 % 07/03/2020 12:50 EST [facility] % Bands 1.0 % 07/03/2020 12:50 EST [facility] % Lymphocytes 40.0 % 07/03/2020 12:50 [facility] % Atypical Lymphocytes 4.0 % 07/03/2020 12:50 [facility] % Monocytes 5.0 % 07/03/2020 12:50 [facility] % Eosinophils 1.0 % 07/03/2020 12:50 [facility] % Basophils 1.0 % 07/03/2020 12:50 [facility] Absolute Neutrophils 6.40 2.20 - 8.85 K/cmm 07/03/2020 12:50 [facility] Absolute Bands 0.13 K/cmm 07/03/2020 12:50 [facility] Absolute Lymphocytes 5.33(H) 1.09 - 3.30 K/cmm 07/03/2020 12:50 [facility] Absolute Atypical Lymphocytes 0.53 K/cmm 07/03/2020 12:50 [facility] Absolute Monocytes 0.67 0.10 - 0.80 K/cmm 07/03/2020 12:50 [facility] Absolute Eosinophils 0.13 0.03 - 0.61 K/cmm 07/03/2020 12:50 [facility] ABS Basophils 0.13(H) 0.01 - 0.11 K/cmm 07/03/2020 12:50 [facility] Blood VENOUS BLOOD / Unknown 04/15/2020 11:28 EST 06/23/2020 15:27 EST Mushtaq Light DO HEMATOLOGY & PF4 OR DERABLES [facility] [address] [place] [address] * (ABNORMAL) SED. RATE:MARLYN (04/15/2020 11:28 EST) Sed Rate 25(H) 0 - 20 mm/hr 07/03/2020 12:51 [facility] Blood VENOUS BLOOD / Unknown 04/15/2020 11:28 EST 06/23/2020 15:27 EST Mushtaq Light DO HEMATOLOGY & PF4 OR DERABLES Performing Organization Address City/[facility]/ZIP Co de Phone Number [facility] [address] [place] [address] * (ABNORMAL) COMPLETE BLOOD COUNT AND DIFFERENTIAL (04/15/2020 11:28 EST) WBC 13.33(H) 4.00 - 12.40 K/cmm 07/03/2020 12:50 [facility] RBC 4.38 3.86 - 5.04 M/cmm 07/03/2020 12:50 [facility] Hemoglobin 13.5 11.6 - 15.2 gm/dL 07/03/2020 12:50 [facility] HCT 38.6 34.9 - 44.4 % 07/03/2020 12:50 [facility] MCV [id number] [phone] - 98 fl 07/03/2020 12:50 [facility] MCH 30.8 26.7 - 33.3 pg 07/03/2020 12:50 [facility] MCHC 35.0 32.1 - 35.9 gm/dL 07/03/2020 12:50 [facility] RDW-CV 12.5 <14.7 % 07/03/2020 12:50 [facility] RDW-SD 40.6 <50.4 fl 07/03/2020 12:50 [facility] PLT [id number] - 377 K/cmm 07/03/2020 12:50 [facility] MPV 9.8 9.5 - 12.7 fl 07/03/2020 12:50 [facility] Type of Differential: Manual 07/03/2020 12:50 [facility] Blood VENOUS BLOOD / Unknown 04/15/2020 11:28 EST 06/23/2020 15:27 EST Mushtaq Light DO PACKAGES & DNA PROB E ORDERABLES Performing Organization Address City/[facility]/ZIP Co de Phone Number [facility] [address] [place] [address] * (ABNORMAL) CREATININE (04/15/2020 11:28 EST) Creatinine 0.43(L) 0.52 - 1.04 mg/dL 06/30/2020 12:01 EST [facility] eGFR 132 >60 mL/min/1.7 3m2 06/30/2020 12:01 EST [facility] Comment:eGFR calculated gil curtis CKD-EPI equation for non- Americans. Multiply eGFR by 1.16 for patients. Blood VENOUS BLOOD / Unknown 04/15/2020 11:28 EST 06/23/2020 15:27 EST Mushtaq Light DO CHEMISTRY & BLOOD G ORDERABLES [facility] [address] [place] [address] * C REACTIVE PROTEIN (04/15/2020 11:28 EST) C-Reactive Protein <7.0 <10.0 mg/L 06/30/2020 12:01 EST [facility] Blood VENOUS BLOOD / Unknown 04/15/2020 11:28 EST 06/23/2020 15:27 EST Mushtaq Light DO CHEMISTRY & BLOOD G ORDERABLES [facility] [address] [place] [address] documented in this encounter Visit Diagnoses Diagnosis Other chronic hematogenous osteomyelitis, left ankle and foot (HCC-CMS) documented in this encounter Additional Health Concerns Infection Onset Date Last Indicated Resolved Time R/O COVID-19 08/04/2020 08/04/2020 08/04/2020 11:4 0 EST documented as of this encounter Care Teams Mortgage Counselor Relationship Specialty Start Date End Date Carrington Calderon MD [address] [facility] [address] [place] [phone] PCP - General Internal Medicine - Primary Care 12/09/20 Abigail Díaz Councilor 04/21/23 Carmelo Hendrickson Coordinator 12/01/23 documented as of this encounter
--- OUTSIDE RECORDS SUMMARY | 2023-12-16 00:41 | XMS_ITS | Encounter Summary ---
Author Organization [facility] Address [address] [place] [address] Care Team Providers Care Hourly Shift Manager Name Role Phone Unavailable Primary Care Provider Unavailabl e Reason for Visit * Reason Comments Follow-up Encounter Details Date Type Department Care Team (Late st Contact Info) Description 04/16/2020 9:30 EST Telemedicine [facility] Infectious Disease - [address] [phone] Mushtaq Light, DO 111 [facility], [address] [place] [address] Osteomyelitis of great toe of [...] of this encounter Progress Notes * Mushtaq Light DO - 04/16/2020 0930 EST Due to computer system disruption, additional clinical information for this visit is Scanned Note. For patients, please refer to guidance in [employer] on how to locate information. Generally this information will appear as a scanned documents saved in My Documents activity. documented in this encounter Plan of Treatment Upcoming Encounters Date Type Department Care Team (Late st Contact Info) Description 02/21/2024 9:45 EDT Office Visit [facility] Adult Primary Care - [address] [phone] Carrington Calderon MD 1 [facility] 1 [place] [phone] 02/27/2024 8:30 EDT Telemedicine [facility] Sleep Program - [address] [place] [address] [place] [address] Rn, Sleep 02/29/2024 10:30 EDT Appointment [facility] Radiology Nuclear Medicine and PET [address] [address] 02/29/2024 14:30 EDT Appointment [facility] Radiology Nuclear Medicine and PET - [address] [phone] 03/01/2024 8:00 EDT Appointment [facility] Radiology Nuclear Medicine and PET [address] [phone] 03/01/2024 9:30 EDT Appointment [facility] Radiology Nuclear Medicine and PET [address] [phone] documented as of this encounter Visit Diagnoses Diagnosis Osteomyelitis of great toe of left foot (HCC-CMS)- Primary documented in this encounter
--- OUTSIDE RECORDS SUMMARY | 2023-12-16 00:41 | XMS_ITS | Encounter Summary ---
Author Organization [facility] Address [address] [place] [address] Care Team Providers Care Alloy Weigher Name Role Phone Unavailable Primary Care Provider Unavailabl e Encounter Details Date Type Department Care Team (Latest Contact Info) Description 04/30/2020 Travel Social History Tobacco Use Types Packs/Day [...] have Coronavirus / COVID-19? No / Unsure 04/30/2020 8:41 EST documented as of this encounter Functional [...] Info) Description 02/21/2024 9:45 EDT Office Visit [facility] Adult Primary Care - [address] [phone] Carrington Calderon MD [address] [phone] 02/27/2024 8:30 EDT Telemedicine [facility] Sleep Program - [address] [phone] Rn, Sleep 02/29/2024 10:30 EDT Appointment [facility] Radiology Nuclear Medicine and PET - [address] [phone] 02/29/2024 14:30 EDT Appointment [facility] Radiology Nuclear Medicine and PET [address] [phone] 03/01/2024 8:00 EDT Appointment [facility] Radiology Nuclear Medicine and PET [address] [address] 03/01/2024 9:30 EDT Appointment [facility] Radiology Nuclear Medicine and PET - [address] [address] documented as of this encounter Visit Diagnoses Not on filedocumented in this encounter
--- OUTSIDE RECORDS SUMMARY | 2023-12-16 00:41 | XMS_ITS | Encounter Summary ---
Author Organization [facility] Address [address] [place] [address] Care Team Providers Care Biological Aide Name Role Phone Unavailable Primary Care Provider Unavailabl e Reason for Visit * Reason Comments Toe Injury diabetic foot ulcer on right great toe. admitted in march for IV abx x1week and then d/c with PO abx [id number]. last night noticed swelling, increased pain, redness and drainage from ulcer. dressed prior to arrival. unable to bear weight * Auth/Cert Specialty Diagnoses / Procedures Referred By Contac t Referred To Contact Diagnoses Diabetic foot infection ([facility]) 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 ([facility]) Referral ID Status Reason Start Date Expiration Date Visits Re quested Visits Authorized [id number] 1 1 Encounter Details Date Type Department Care Team (Late st Contact Info) Description 05/03/2020 21:20 EST - 05/04/2020 20:27 [facility] Hospital Encounter [facility] [address] [id number] Fran Barbosa MD 111 [facility], [address] [place] [address] Lalito You MD MPH [address] [phone] Obi Hancock MD [address] [phone] Diabetic foot infection (HCC-CMS) (Primary Dx); 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 (HCC-CMS); Sepsis without acute organ dysfunction, due to unspecified organism (HCC-CMS) Discharge Disposition: Left Against Medical Advice Social History Tobacco Use Types Packs/Day Years [...] 21:18 EST documented as of this encounter Last Filed Vital Signs Vital Sign Reading Time Taken Comments Blood Pressure 120/81 05/04/2020 1722 EST Pulse 106 05/03/2020 2231 EST Temperature 36.8 ??C (98.2 ??F) 05/04/2020 1722 EST Respiratory Rate 16 05/04/2020 1722 EST Oxygen Saturation 98% 05/04/2020 1722 EST Inhaled Oxygen Concentration - - Weight 89.8 kg (198 lb) 05/04/2020 0028 EST Height 162.6 cm (5' 4.02) 05/04/2020 0028 EST Body Mass Index 33.97 05/04/2020 0028 EST documented in this encounter Functional Status [...] 05/04/2020 documented as of this encounter Discharge Summaries * Obi Hancock MD - 05/04/2020 1849 EST Medicine Discharge Summary Primary Care Provider: Tonja Alejandro Attending Physician: Obi Hancock MD Admit Date: 05/03/2020 Discharge Date: 05/04/20 Disposition: Home Reason for Admission: left foot pain Principal/Final Diagnosis: Sepsis secondary to diabetic foot infection ([facility]) with osteomyelitis Additional Problems Managed in the Hospital Active Hospital Problems Diagnosis Date Noted ??? *Diabetic foot infection ([facility]) 03/06/2020 ??? 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 ([facility]) 05/03/2020 Resolved Hospital Problems No resolved problems to display. Principal Procedure: MRI left ankle Secondary Procedures: none Clinical Issues Needing Follow-up: # Sepsis # Diabetic foot infection - FU blood cultures - Follow-up with Infectious Diseases (Dr. Light) and Podiatry (Dr. Navarro) as soon as possible - Non-weight bearing left foot # Poorly Controlled Type 2 Diabetes 03/2020 A1c 10.4. Home regimen is 40U Lantus at bedtime and 6-8U aspart with meals. 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 Cristy Luo??is a 35 year old??female??with a past medical history notable for insulin-dependent T2DM (c/b peripheral neuropathy and diabetic foot ulcer), recurrent migraine, TERI/MDD admitted 05/03/20 for worsening left foot pain, suspicious for recurrent diabetic foot infection. Of note, patient was recent admitted to [facility] for management of left great toe osteomyelitis between 03/06/20 to 03/12/20. During that time, she was started on cefazolin IV and metronidazole for six weeks. She completed her antibiotic course outpatient on 04/20/20. She complained of no symptoms during that time. On the night of 05/02/20, she noted worsening left foot pain and swelling after spending the day decorating her home for [employer]. She subsequently went to the [facility] ED for further evaluation. On admission, she was notably tachycardic. Labs were notable for leukocytosis of 16.98, CRP 39.2, and ESR36. XR of left foot reportedly did not show evidence of osteomyelitis. Orthopedic surgery service wa s consulted, recommending no surgical management. She was given one dose of vancomycin in the ED. She was subsequently admitted to Adult Medicine for further evaluation. During her 1 day hospital course, labs revealed downtrending leukocytosis of 13.43. MRI of the L ankle revealed osteomyelitis of the proximal left phalanx. ID was consulted, recommending to restart vancomycin, optimizing diabetes management and smoking cessation. However, on the night of 05/04 the patient left AMA for childcare concerns before the primary team had an opportunity to restart antibiotics. She stated that she had to leave within the hour because her childcare arrangements had fallen through. We discussed the risks and benefits of leaving and itwas discussed that from a medical standpoint the medical team did not recommend discharge. The patient demonstrated an understanding of the risks and benefits. She provided her logic for wishing to leave. AMA paperwork was signed. We discussed how to minimize any negative impact of leaving prior tobeing medically stable including what signs and symptoms should prompt urgent return to the hospital as well as next steps to take with regards to her care. It was reiterated that she would be able to return to the emergency room for further care if she was willing. She was not discharged with antibiotics overnight and was instructed to call her outpatient doctor in the morning for further recomme ndations of antibiotics and pain control which she was agreeable to. Condition at Discharge: unstable Allergies Allergen Reactions ??? Citalopram Other (See Comments) suicidal ideation, approx 2012 ??? Other - See Comments Swelling of throat pomergrante ??? Advil [Ibuprofen] Hives Immunization History Administered Date(s) Administered ??? Rho(D) Immune Globulin IM 10/26/2018, 10/03/2019 ? ? Tdap Vaccine =>7YO IM 06/06/2016 Results Pending at Discharge Test results still pending from this admission Procedure Component Value Units Date/Time Bacterial Culture, Blood [[id number]] Collected: 05/04/2040 Lab Status: In process Specimen: Blood, Venous Updated: 05/04/20 0733 Bacterial Culture, Blood [[id number]] Collected: 05/04/2047 Lab Status: In process Specimen: Blood, Venous Updated: 05/04/20 0733 Hemoglobin A1c [[id number]] Collected: 05/03/208 Lab Status: In process Specimen: Blood, Venous Updated: 05/04/20 0043 Upcoming Appointments May 14, 2020 14:30 Office Visit with Elza Navarro DPM [facility] - [place] (--) [facility] [id number] Follow-up appointments and procedures Amb Consult/Follow Up Podiatry Reason for Request: f/u hospitalization for left big toe osteomyelitis Authorizing Provider: Sourav Gilbert MD Amb Consult/Follow Up Primary Care Physician Reason for Request: F/u hospitalization for osteomyelitis of left big toe Authorizing Provider: Sourav Gilbert MD Discharge Handoff Communication Contact was not made at the time of discharge Discharge Summary Completed By: Sourav Gilbert MD ATTENDING ATTESTATION: Date of service: 05/04/2020 I interviewed and examined the patient earlier on the day of discharge (see my attestation to progress note); reviewed interval labs, events, and notes; and discussed the case with the medicine housestaff team. On 05/05/[address] Light (ID) and Tonja Alejandro PA-C (the patient's primary care provider) and discussed the patient's AMA discharge and plan of care. Dr. Light will coordinate with the Dr. Elza Navarro (podiatry) to develop a care plan for the patient and communicate with the patient. Following information conveyed to Tonja Alejandro PA-C, by Obi Hancock MD: ?? Reason for admission and final diagnosis ?? Next steps in post-discharge care Total unit time I spent in the care of the patient today: >30 Minutes Obi Hancock MD Division of Hospital Medicine 05/05/2020 8:45 documented in this encounter Medications at Time of Discharge Medication Sig Dispensed Refills Start Date End Date blood glucose meter One Touch Verio Flex meter. 1 Each 10/04/2019 12/21/2021 blood glucose test strips One Touch Verio IQ or other brand compatible with meter and covered by patient's insurance. Testing QID. 100 Each 5 10/01/2019 08/11/2020 diphenhydrAMINE (BENADRYL) 50 mg capsule Take 1 Cap by mouth as needed for up to 1 dose (hives). 2 Cap 03/12/2020 05/12/2020 gabapentin (NEURONTIN) 100 mg capsule Take 100 mg by mouth 3 times daily. 06/05/2020 insulin aspart U-100 (NOVOLOG FLEXPEN) 100 unit/mL [...] patient's insurance. 100 Each 5 10/01/2019 10/01/2020 sodium chloride 0.9 %, flush, flush syringe For valved catheters (Groshong, Vaxcel, Solo PICC, Mid-line, and Groshong Chest Port): Flush all lumens with 10 mL every week if not in use. Flush 10 mL before and 10 mL after each medication dose (20 mL after vancomycin doses). Flush with 20 mL after blood draws. Dispense quantity sufficient. 1 Box 03/12/2020 05/12/2020 documented as of this encounter Discharge Disposition Disposition Code Departure Means Destination Left Against Medical Advice Home documented in this encounter Progress Notes * Obi Hancock MD - 05/04/2020 0707 EST Images from the original note were not included. Medicine Progress Note Service Date: 05/04/2020 Admit Date: 05/03/2020 21:20 Reason for Admission: Mrs. Cristy Luo is a 35 year old female with a past medical history notable for insulin-dependent T2DM (c/b peripheral neuropathy and diabetic foot ulcer), recurrent migraine, TERI/MDD admitted 05/03/20 who presented worsening left foot pain, suspicious for recurrent diabetic foot infection. 24 Hour Events: - Admitted overnight Subjective When we spoke, patient was lying comfortably in bed. She noted that the swelling and tenderness in her left foot had already improved since admission. She noted that her symptoms worsened on the night of 05/02/20, noting that she developed worsening left foot pain and swelling after spending the day decorating her home for [employer]. On further ROS, she denied F/C/S, N/V/D, chest pain, shortness of breath, abdominal pain, headache,or vision changes. Objective Vital Signs Temp: [36.1 ??C (97 ??F)-36.7 ??C (98.1 ??F)] , Heart Rate: --, Resp: [16-20] , BP: (107-126)/(69-84) , SpO2: [96 %-100 %] Physical Exam ?? General: Alert and oriented x3, NAD, cooperative ?? HEENT: Normocephalic/atraumatic, MMM, no scleral icterus, EOMI ?? CVS: RRR, S1S2 normal, no murmurs/rubs/gallop appreciated ?? Resp: Clear to ausculation bilaterally, no crackles or wheeze ?? Abdomen: Soft, non-tender, non distended. Bowel sounds present and normal. ?? Extremities: mild swelling and tenderness to palpation of her left ankle, unable to assess left foot ulcer given wrapping, bilateral pulses intact, diminished sensation of the soles of her feet bilaterally ?? Musculoskeletal: No joint tenderness or effusions on palpation ?? Neuro: AOx3, no focal sensory or motor neurological deficits appreciated Is PICC or central line present? No Medications Reviewed Labs Imaging 05/04/20 Left Ankle XR: no evidence of osteomyelitis. Medial soft tissue swelling ankle and hindfoot. 05/04/20 MRI Left Ankle (final read): worsening osteomyelitis of the proximal phalanx of the left ankle Assessment Mrs. Cristy Luo is a 35 year old female with a past medical history notable for insulin-dependent T2DM (c/b peripheral neuropathy and diabetic foot ulcer), recurrent migraine, TERI/MDD admitted 05/03/20 who presented worsening left foot pain, suspicious for recurrent diabetic foot infection. Physical exam notable for lower left extremity and swelling. Labs revealed leukocytosis and an elevated CRP, concerning for sepsis. Plan # Sepsis # Diabetic foot infection Patient admitted 03/06-03/12 for left great toe osteomyelitis. Patient was discharged on a 6 week course of IV cefazolin and PO metronidazole (completed 04/21/20). Patient received a dose of vancomycinin the ED. 05/03/20 L ankle XR revealed no signs of osteomyelitis. - FU blood cultures - FU Infectious Disease recs - Orthopedics recommended no surgery - Resume vanco per ID recs - MRI left foot obtained today - follow-up results # Poorly Controlled Type 2 Diabetes 03/2020 Hemoglobin A1c 10.4. Home regimen is 40U Lantus at bedtime and 6-8U aspart with meals. 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 Refused patches or gum. ?? # Safety Planning - VTE Prophylaxis: Enoxaparin 40mg daily - Code: Full, discussed w patient - Discharge: home - Consults: Infectious Disease SUSHILA BELL MD 05/04/2020 7:07 ATTENDING ATTESTATION: Date of service: 05/04/2020 I interviewed and examined the patient; reviewed records and laboratory studies; and discussed the case with Dr. Bell & Dr. Rick (medicine housestaff team), and Dr. You (night hospitalist). I agree with and addended (in blue) the findings and plan of care as documented in the note above. Additionally: Dr. Betty Lazcano will assume the care of the patient tomorrow, 05/05/2020. Obi Hancock MD Internal Medicine Hospitalist Service 05/04/2020 16:55 documented in this encounter H&P Notes * Sara Banks MD - 05/03/2020 0276 EST Medicine Admission History & Physical Service Date: 05/04/2020 Admit Date: 05/03/2020 21:20 Primary Care Provider: Tonja Alejandro Chief Complaint: Foot pain, left HPI Cristy Luo is a 35 y.o. female with a PMHx of T2DM, diabetic foot ulcers (s/p recent hospitalization for IV abx), migraine, anxiety and depression who presented to ED tonight for worsening diabetic foot ulcer. She was hospitalized from 03/06-03/12 this year and diagnosed with osteomyelitis of the great toe of the left foot and treated with IV cefazolin and metronidazole, which she continued at home x total course of 6 weeks. She presents to ED with worsening of her ulcer in the setting of recently completing her abx course. In ED: Afebrile, HR 125, RR 20, BP 126/84, sats 99% on RA Labs significant for WBC 16.98, CRP 39.2, ESR 36. XR of left foot reportedly did not show evidence of osteo. Ortho consulted in ED and does not feel there is a need for acute surgical/orthopaedic intervention at this time. They rec minimized weight bearing, surgical shoe, offloading, daily dressing changes, aggressive elevation and antibiotics. Patient treated in ED with vancomycin 1750mg x1. Patient reports that her last day of IV antibiotics at home was 04/20. Since then she has been feeling totally fine and has not had foot pain. However, starting last night she had significant pain inher left foot and ankle. She also noticed a lot of swelling of her foot and ankle. It was extremelypainful to the touch and she noted clear discharge from the ulcer. She elevated the foot all night.This morning and today the pain and swelling were worse. She noted that the discharge from the wound changed from clear to yellow. She denies fevers today but did feel colder than usual. She has not had body aches or fatigue associated, nor has she had N/V/D, chest pain, cough, sob. She does endorse a mild headache tonight. She is allergic to advil and citalopram. She lives at home with her and 4 children. She does not use alcohol or drugs beyond occasional MJ. Review of Systems A complete 10 point ROS was performed and pertinent positive and negative findings listed in HPI, otherwise negative. Past Medical History: Diagnosis Date ??? Anxiety ??? Arthritis 12/05/19- Spine- told years ago ??? Diabetes ([facility]) A1c 10.3 on 11/28/2019 ??? History of [...] Paternal Grandfather Current Outpatient Medications Medication Sig ??? blood glucose meter One Touch Verio Flex meter. ??? blood glucose test strips One Touch Verio IQ or other brand compatible with meter and covered by patient's insurance. Testing QID. ??? diphenhydrAMINE (BENADRYL) 50 mg capsule Take 1 Cap by mouth as needed for up to 1 dose (hives). (Patient not taking: Reported on 03/13/2020) ??? gabapentin (NEURONTIN) 100 mg capsule Take 100 mg by mouth 3 times daily. ??? insulin aspart U-100 (NOVOLOG FLEXPEN) 100 unit/mL (3 mL) injectable pen Inject 9 Units into the skin 3 times daily with meals. ??? insulin glargine (LANTUS SOLOSTAR) 100 unit/mL (3 mL) injection pen Inject 30 Units into the skin at bedtime for 90 days. ??? lancets One Touch Delica or other brand compatible with lancing device and covered by patient'sinsurance. ??? sodium chloride 0.9 %, flush, flush syringe For valved catheters (Groshong, Vaxcel, Solo PICC, Mid-line, and Groshong Chest Port): Flush all lumens with 10 mL every week if not in use. Flush 10 mL before and 10 mL after each medication dose (20 mL after vancomycin doses). Flush with 20 mL afterblood draws. Dispense quantity sufficient. Allergies Allergen Reactions ??? Citalopram Other (See Comments) suicidal ideation, approx 2012 ??? Other - See Comments Swelling of throat pomergrante ??? Advil [Ibuprofen] Hives Objective Vitals Temp: [36.1 ??C (97 ??F)-36.4 ??C (97.5 ??F)] , Heart Rate: --, Pulse: [106-125] , Resp: [20] , BP:(107-126)/(69-84) , SpO2: [99 %-100 %] , Numeric Pain Level (Scale 1-10): 8 Weight: Weight : 89.8 kg (198 lb) Body mass index is 33.99 kg/m??. Physical Exam Physical Exam Vitals signs and nursing note reviewed. Constitutional: General: She is not in acute distress. Appearance: Normal appearance. She is obese. She is not ill-appearing or toxic-appearing. HENT: Head: Normocephalic and atraumatic. Nose: Nose normal. No congestion. Mouth/Throat: Mouth: Mucous membranes are moist. Neck: Musculoskeletal: Normal range of motion and neck supple. Cardiovascular: Heart sounds: No murmur. Comments: Mild tachycardia. Regular rhythm. Pulmonary: Effort: Pulmonary effort is normal. No respiratory distress. Breath sounds: Normal breath sounds. No stridor. No wheezing. Abdominal: General: There is no distension. Musculoskeletal: Comments: Swelling of left foot and ankle. Mild non-pitting edema of left foot and ankle. See ortho note for photo of wound. Skin: General: Skin is warm and dry. Capillary Refill: Capillary refill takes less than 2 seconds. Comments: Left foot, ankle, and lower leg warmer to the touch than right leg. No streaking or erythema noted. Neurological: General: No focal deficit present. Mental Status: She is alert and oriented to person, place, and time. Mental status is at baseline. Psychiatric: Mood and Affect: Mood normal. Behavior: Behavior normal. Pressure Ulcer Present on admission? No Labs I have personally reviewed Recent Labs 05/03/20 2138 WBC 16.98* RBC 4.38 HGB 13.7 HCT 38.9 MCV 89 MCH 31.3 MCHC 35.2 PLT 365 NEUTROABS 9.61* SEDRATE 36* Imaging Per report patient had foot xr that did not show evidence of osteo Assessment Cristy Luo is a 35 y.o. female with a PMHx significant for T2DM, diabetic foot ulcers (s/p recent hospitalization for IV abx), migraine, anxiety and depression who is admitted for treatment ofa recurrent diabetic foot ulcer infection. She is s/p 6 weeks IV antibiotic therapy, last dose 04/20. She is s/p on dose vancomycin in ED. S/p ortho consult in ED; no acute intervention; they will follow along and we appreciate their recs. Plan for consultation with ID tomorrow for guidance on appropriate therapy. Plan Diabetic foot infection: left great toe. No current evidence of osteo though xr is low sensitivity. - ortho consult, no surgical intervention, appreciate recs - minimized weight bearing - aggressive elevation - surgical shoe - daily dressing changes - ID consult in AM - s/p 1 dose vancomycin in ED. Will hold off on further abx for now until ID/day team discuss - blood cultures - Tylenol for pain for now Type 2 Diabetes: HbA1c in 03/25 was >10. Home regimen is 40U Lantus at bedtime and 6-8U aspart with meals. - repeat A1c. - weight based dosing for lantus and aspart for now: 22U Lantus at bedtime. 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 Anticipated duration of hospitalization is greater than two midnights due to diabetic foot infection. Discussed with Dr. Avelino Banks MD 05/04/2020 0:11 Associated attestation - Lalito You MD MPH - 05/04/2020 0208 EST Attending Attestation I have interviewed and examined the patient. I personally reviewed laboratories studies, radiographic studies, ECG, and prior records. I discussed the case with: Dr. Banks. I agree with the findingsand plan of care as documented in the note above. Admitted primarily because of significantly elevated leukocytosis, rising inflammatory markers, andtachycardia (which has somewhat improved) and concern about the adequacy of PO abx if we were to discharge home, as well as to have ID weigh in. Prior bone cultures showing staph which is deduced susceptible to Ancef (in addition to being positive for S. Agalactiae, strep anginosus and P bivia) -clinical significance of deduced susceptibility is unclear. Was given dose of Vanco in ED, there could be a superimposed cellulitic process here as well, will hold off on further abx pending ID consultation and blood cultures (which unfortunately were drawn after Vanco was given). Appreciate ortho recs, no plans for surgical intervention for now. Renal function and lytes not drawn in ED, pending accucheck. If accucheck significantly elevated will obtain labs tonight, otherwise can wait until AM. Lalito You MD 05/03/2020 1130pm documented in this encounter Consult Notes * Pickens, Mushtaq J, DO - 05/04/2020 1059 EST INFECTIOUS DISEASES INITIAL CONSULT Patient: Cristy Luo : 1985 Service: Medicine Date of Admission: 05/03/2020 Date of Consultation: 05/04/20; 11:00 Requested by: Lalito You MD Reason for consult: diabetic foot infection CHIEF COMPLAINT: Left great toe pain, drainage from plantar ulcer Prior antibiotics: Ancef 2 g IV every 8 start day 09 March, stop day 20 April Flagyl 500 p.o. 3 times daily start day 09 March, stop day 20 April. Current antibiotics: Vancomycin started 03 May HISTORY OF PRESENT ILLNESS: Ms. Luo is a 35 y.o. woman with past medical history significant for poorly controlled T2DM c/b neuropathy (Hgb A1c 10 in November), morbid obesity, and tobacco dependence who presented with worsening left great toe pain and drainage. Recently admitted 03/06 - 03/12 for left great toe osteomyelitis and associated left lower extremity SSTI. Bone biopsy was polymicrobial (MSSA, GBS, S. anginosus, prevotella) and MRI revealed 1st distal phalanx osteomyelitis with possible early proximal involvement. No surgical interventions were performed at the time. She was discharged to complete 6 weeks of cefazolin 2gm q8h and PO [id number] q8h, with dressing changes and short-interval podiatry follow-up. Per notes, she missed several of her follow-up appointments. Her stop date was 20 April. In follow-up w/ podiatry on 03/25, noted to have decrease in size of ulcer and no longer probed to bone. Inflammatory markers were normal on several occasions (03/18, 03/25, 04/01). She completed antibiotics on 04/20. Follow-up w/ podiatry again on 04/30 without evidence of active infection but didprobe deep. Over past few days, she has noticed increased drainage from the ulcer of her left plantar great toe, increasing pain and swelling in the region so presented back to the ER. On arrival in the ER, afebrile and work-up notable for elevated inflammatory markers (CRP 39.2) andleukocytosis (17). Left foot plain films reportedly with small amount of soft tissue swelling on medial ankle. She was given a dose of vancomycin, blood cultures were drawn, and she was admitted to medicine. Orthopedics evaluated her and determined that there is no operative debridement necessary at this time. ID has been consulted for antibiotic management. Review of systems: Besides the drainage from the plantar aspect of the left toe, patient denies nausea, vomiting, diarrhea, fevers, chills or night sweats. No difficulties with the PICC line which has since been pulled. REVIEW OF SYSTEMS: 10-point review of systems is negative except as mentioned in the HPI and as noted here. PAST MEDICAL Past Medical History: Diagnosis Date ??? Anxiety ??? Arthritis 12/05/19- Spine- told years ago ??? Diabetes ([facility]) A1c 10.3 on 11/28/2019 ??? History of general anesthesia ? ? Nausea & vomiting ??? Obesity, unspecified ??? Peripheral neuropathy 12/05/19- Bilateral feet ??? Skin problem 11/28/19- Per MD notes, left foot with redness and swelling, and open wound. WBC count 14.38. MRI today to rule out osteomyelitis. ??? Spontaneous miscarriage 09/04/201502/18, 08/19. Followed by Dr. López[facility] O[facility]YN SURGICAL HISTORY: Past Surgical History: Procedure Laterality Date ??? 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 DILATION AND CURETTAGE OF UTERUS ??? DILATION AND CURETTAGE OF UTERUS ??? DILATION AND CURETTAGE OF UTERUS ??? DILATION AND CURETTAGE OF UTERUS ??? DILATION AND CURETTAGE OF UTERUS ??? DILATION AND CURETTAGE OF UTERUS ??? OTHER SURGICAL HISTORY tailbone (mostlikely pilonidal cyst) ??? 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 Social History Socioeconomic History ??? Marital status: [...] file Gets together: Not on file Attends yarsani service: Not on file Active member of [...] Social History Narrative ??? Not on file FAMILY HISTORY: Problem Relation Name Comments Diabetes Mother Diabetes Maternal Grandmother Diabetes Maternal Grandfather Diabetes Paternal Grandmother Diabetes Paternal Grandfather The Family History was reviewed and is non-contributory for a past history of infection or immunocompromised state. ALLERGIES: Allergies Allergen Reactions ??? Citalopram Other (See Comments) suicidal ideation, approx 2012 ??? Other - See Comments Swelling of throat pomergrante ??? Advil [Ibuprofen] Hives MEDICATIONS: Reviewed in AUG. Anti-infectives: Vancomycin 05/03 PHYSICAL EXAM: VS: BP 114/72 (BP Cuff Location: Right arm, BP Patient Position: Semi fowlers) Pulse (!) 106 Temp 36.8 ??C (98.3 ??F) (Oral) Resp 16 Ht 162.6 cm (64.02) Wt 89.8 kg (198 lb) SpO2 96% BMI 33.97 kg/m?? GENL: Very pleasant, NAD ABDM: Obese, non-distended, soft, non-tender MSK: no joint swelling or erythema. Small, nontender, nondraining ulcer on the plantar aspect of her left great toe. EXTR: warm and well perfused, no edema SKIN: no rashes, no jaundice, peripheral IV without concern for infection. NEURO: awake, alert and oriented x3l PSYCH: non-anxious, normal affect ACCESS: L AC pIV LABORATORY: Reviewed in detail in PRISM. WBC/RBC/HGB/HCT/PLT/ANC13.43/4.27/13.1/38.3/335/-- (05/04 0532) Estimated Creatinine Clearance: 185.1 mL/min (A) (by C-G formula based on SCr of 0.46 mg/dL (L)). MICROBIOLOGY DATA: Reviewed in detail in PRISM. Pertinent for: 03/07 left toe (bone): few polys, few MSSA, few GBS, few strep anginosus, moderate prevotella 05/03 covid-19 TRAFFIC REPRESENTATIVE swab: negative 05/04 blood: NGTD IMAGING DATA: personally reviewed 03 May x-ray: AP, oblique, and lateral radiographs of the left foot demonstrate no acute fracture or dislocation, no evidence of osteolysis, small amount of soft tissue swelling on the medial aspect of the ankle. ASSESSMENT: 1. Left hallux plantar diabetic foot infection, recently completed 6 weeks of cefazolin and PO metronidazole for polymicrobial infection. Now with return of drainage from the same left toe plantar ulcer for the past few days. Patient is otherwise clinically very well-appearing. Orthopedic has seen patient and determined no interventions are needed. An MRI read is pending. Patient is afebrile witha mild leukocytosis of 13.4. 2. Elevated inflammatory markers RECOMMENDATIONS: 1. MRI left foot with emphasis on great toe to better evaluate for osteomyelitis/necrotic bone is the patient appears to have failed a 6-week course of adequate antibiotics. 2. Optimize diabetes management 3. Smoking cessation 4. Patient is clinically very well-appearing, is afebrile and with only minimal drainage from the prior toe ulcer but I think it is reasonable to continue vancomycin for now as we await results of the MRI. Thank you for asking us to participate in this patient's care. Please call with questions or concerns. I will try to connect with Dr. Navarro tomorrow and relay the results of the MRI. NICOLE Light staff. * Ursula Martinez MD - 05/03/2020 2222 EST Images from the original note were not included. Orthopaedic Surgery Consultation Consultation requested by: Dr. Barbosa for: Left plantar great toe ulcer with increased drainage HPI: Cristy Luo is a 35 y.o. female with PMH significant for DM, tobacco use, and depression/anxiety who is here with increased drainage from her left plantar toe ulcer. Patient was admitted from 03 06-03 12 with left toe ulcer and was treated with antibiotics. She was discharged home on 6 weeks ofIV cefazolin and metronidazole. These antibiotics were completed approximately 2 half weeks ago. She followed up with Dr. Navarro, most recently on 04/30. At that time the left great toe plantar ulcer looked much better. She has been doing dressing changes at home. She noticed last night (04/01) thatafter she had been on her feet more all day yesterday, she had some increased drainage from the ulcer. Overnight and into today she had increasing pain in her left lower extremity extending from the left great toe to the medial mid calf. Patient states she has had this pain in the past and was previously being worked up for tendinitis. Denies fevers. Has had chills overnight last night. Ambulatory status: Ambulates independently at baseline. Currently is supposed to be minimizing weightbearing on the right lower extremity. PMH: DM, tobacco use disorder, depression/anxiety, chronic left great toe plantar ulcer PSH: Sacral cyst removal (2001), D&C x7 for miscarriage Medications: Gabapentin 100 mg 3 times daily, 40 units of Lantus at night, sliding scale NovoLog with meals Allergies: Advil (throat swelling), citalopram (opposite effect) Social history: Lives in [place] with her , 3 foster kids, 1 stepdaughter, and her mother whohas been living with them and helping since patient was discharged from the hospital. Previously smoked several packs of cigarettes per day for 6-8 years, in the past 6 months has cut back to half pack per day. No alcohol use. Smokes marijuana on some nights for nerve pain, denies other drug use. 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 Review of Systems: A 10-point review of systems was obtained and pertinent positives are included in the HPI. All others are negative. Physical Exam: BP 107/69 Pulse (!) 106 Temp 36.1 ??C (97 ??F) (Oral) Resp 20 Ht 162.6 cm (64) Wt 89.8 kg (198 lb) SpO2 100% BMI 33.99 kg/m?? General: alert, awake, no apparent distress Respiratory: non labored breathing Focused Musculoskeletal and Neurovascular Examination Left lower extremity: -1 cm x 1 cm ulcer on the plantar aspect of the great toe that does not probe to bone. Scant purulent drainage, fibrinous tissue within the ulcer has a whitish coloration. Sharply debrided edges are still without necrotic skin.. -No surrounding erythema. No erythema tracking up the leg. Hyperesthetic to the touch at the skin on the medial side of the foot and calf. No pain with palpation of the calf. Extends the great toe, but minimal flexion of the great toe (baseline per Dr. Navarro's most recent note). Sensation diffuselydecreased at the entirety of the foot. -2+ DP pulse Labs: WBC/Hgb/Hct/Plts: 16.98/13.7/38.9/365 (05/03 2138) ESR: 36 CRP: 39.2 HgbA1c: 10.4 (03/06/2020) Diagnostic Imaging: - AP, oblique, and lateral radiographs of the left foot demonstrate no acute fracture or dislocation, no evidence of osteolysis, small amount of soft tissue swelling on the medial aspect of the ankle. Left foot radiographs from 04/25/2020 Assessment: Cristy Luo [id number] Cristy Luo is a 35 y.o. female with PMH difficult for DM, depression/anxiety, and tobacco use disorder who is here with increased drainage and pain associated with a left plantar great toe ulcer. No debridement was required today. Patient would likely benefit from antibiotics. Given tachycardia and leukocytosis, would recommend medicine evaluation for determination the appropriateness of admission for observation IV antibiotics versus discharge on oral antibiotics. Plan: 1. No further acute orthopaedic intervention. No operative debridement necessary at this time. 2. Minimize weightbearing to the left lower extremity. Surgical shoe and offloading. 3. Dressing changes: Daily dry dressing changes with packing as patient has been doing at home. If patient is admitted, I will place these orders. 4. Aggressive elevation 5. Recommend antibiotics whether that is p.o. or IV. Recommend medicine evaluation for appropriateness of admission first discharge given leukocytosis and tachycardia. Will discuss with Dr. Charles in the AM Ursula Martinez MD 05/03/20 22:37 documented in this encounter ED Notes * Aurelia Gray RN - 05/03/20202125 EST 2125: Patient reports pain and swelling started last night with some clear discharge. Tonight, noted to have increased pain and yellow drainage from bottom of great toe wound. Foot is warm and swollen, L great toe is red and swollen. L foot is tender to light palpation. Patient states pain is 9/10.Patient also stated BG has been high today without any known reason 2130: MD at bedside 2138: Patient off floor to xray * Fran Barbosa MD - 05/03/20202121 EST DOS: 05/03/2020 Scribe Attestation: This documentation is recorded by Rosemarie Doherty acting as Scribe under the direction and presence of Fran Barbosa MD. Fran Barbosa MD: I personally performed the services recorded by the scribe in my presence. Iconfirm the scribe's documentation has been reviewed by me to accurately and completely record my work, treatment, procedures, and medical decision making. Chief Complaint Chief Complaint Patient presents with ??? Toe Injury diabetic foot ulcer on right great toe. admitted in march for IV abx x1week and then d/c with PO abx [id number]. last night noticed swelling, increased pain, redness and drainage from ulcer. dressed prior to arrival. unable to bear weight HPI Cristy Luo is a pleasant 35 y.o. female who presents to the ED today with a chief complaint of toe injury. The patient has past medical history significant for cellulitis of great toe of left foot, diabeticfoot infection and ulcer, anxiety, depression, and T2DM. Patient presents to the ED with complaints of toe injury with onset last night. Patient reports a diabetic foot ulcer on the L great toe beginning in August. She was admitted in March for IV antibiotics for 1 week with PO antibiotics for 6 weeks afterwards. 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 Last night, patient noticed swelling, increased 9/10 pain, redness, and yellow discharge from ulcer . Ulcer dressed prior to arrival. She is not currently taking an antibiotic. Patient notes she was hyperglycemic today. Associated symptoms include chills. Seen by Podiatry on 04/30. Debrided. Probeddeep but not to bone. Now she has purulent discharge and new surrounding erythema. Patient denies fever. Social Hx. Patient is a current tobacco user (0.02 ppd, 0.16 pack-years). Denies EtOH use. History was provided by: patient and medical records Patient's pertinent PMH, FH, and SH were reviewed and updated PRN. ROS Review of Systems Constitutional: Positive for chills. Negative for fever. Musculoskeletal: Positive for a diabetic foot ulcer on the L great toe, swelling, increased pain, redness, and yellow discharge from ulcer. Skin: Positive for wound. All other systems reviewed and are negative. The patient???s past medical, family, and social history was reviewed and updated as needed. Allergies Allergen Reactions ??? Citalopram Other (See Comments) suicidal ideation, approx 2012 ??? Other - See Comments Swelling of throat pomergrante ??? Advil [Ibuprofen] Hives Physical Exam Vital Signs Vitals Reassessment?: Yes Temp: 36.1 ??C (97 ??F) Temp src: Oral Pulse: (!) 106 Resp: 20 SpO2: 100 % BP: 107/69 BP MAP: 78 mm Hg O2 Device: None (Room air) Physical Exam Vitals signs and nursing note reviewed. Constitutional: General: She is not in acute distress. Appearance: Normal appearance. She is well-developed. HENT: Head: Normocephalic and atraumatic. Eyes: General: No scleral icterus. Extraocular Movements: Extraocular movements intact. Pupils: Pupils are equal, round, and reactive to light. Neck: Musculoskeletal: Normal range of motion and neck supple. Cardiovascular: Rate and Rhythm: Regular rhythm. Tachycardia present. Heart sounds: Normal heart sounds. Pulmonary: Effort: Pulmonary effort is normal. Breath sounds: Normal breath sounds. Abdominal: General: Abdomen is flat. Palpations: Abdomen is soft. Tenderness: There is no abdominal tenderness. There is no guarding. Musculoskeletal: Normal range of motion. Comments: Tender to mid calf. Skin: General: Skin is warm and dry. Findings: No rash. Comments: Base of L great toe with redness that extends to dorsum of foot. No streaking. Purulent exudate. Neurological: General: No focal deficit present. Mental Status: She is alert and oriented to person, place, and time. Psychiatric: Mood and Affect: Mood normal. Behavior: Behavior normal. Thought Content: Thought content normal. Judgment: Judgment normal. Laboratory Results Labs Reviewed COMPLETE BLOOD COUNT AND DIFFERENTIAL - Abnormal Result Value Status WBC 16.98 (*) Final RBC 4.38 Final Hemoglobin 13.7 Final HCT 38.9 Final MCV 89 Final MCH 31.3 Final MCHC 35.2 Final RDW-CV 12.5 Final RDW-SD 41.1 Final PLT 365 Final MPV 9.7 Final Neutrophils 56.7 Final Lymphocytes 29.4 Final Monocytes 8.8 Final Eosinophils 4.4 Final Basophils 0.5 Final Immature Grans 0.2 Final Absolute Neutrophils 9.61 (*) Final Absolute Lymphocytes 5.00 (*) Final Absolute Monocytes 1.49 (*) Final Absolute Eosinophils 0.75 (*) Final Absolute Basophils 0.09 Final Absolute Immature Grans 0.04 Final Type of Differential: Auto Final C REACTIVE PROTEIN - Abnormal C-Reactive Protein 39.2 (*) Final SED. RATE:WESTERGREN - Abnormal Sed. Rate Westergren 36 (*) Final Procedures Procedures None ED Course A medical screening was performed. Patient presents to the ED with complaints of toe injury with onset last night when she noticed swelling, increased pain, redness, and yellow discharge from ulcer. Patient reports a diabetic foot ulcer on the L great toe beginning in 08/23. Physical exam was significant for base of L great toe shows redness that extends to dorsum of foot.No streaking. Purulent exudate. Tender to mid calf. Tachycardic. Differential diagnosis includes but is not limited to diabetic foot infection and osteomyelitis. (6328) Paged Orthopedic resident. The patient had a L Foot X-Ray which was significant for no evidence of osteomyelitis. No fracture.See full radiology report. Patient had X-Ray that was obtained, reviewed, and interpreted by myselfalong with a radiologist. Please see radiology report for further details. (2145) Consultation obtained from Orthopedics. They agreed to evaluate the patient. Patient had labs that were reviewed independently by myself, significant for 16.98 WBC, Sed. Rate of 36, and C- Reactive Protein 39.2. (2216) Consultation obtained from Orthopedics. No surgical intervention needed at this time. They recommended to discuss with Medicine due to tachycardia and elevated WBC. (2220) Paged hospitalist. (2229) Patient re-evaluated. Plan to recheck vital signs. (2239) Discussed patient's case with hospitalist. They agreed to admit the patient and recommended vancomycin. (2240) Patient re-evaluated. Patient was still tachycardic at 108 bpm. We discussed plan for admission and treatment with 20 mg/kg X 89.8 kg IV vancomycin. Patient was agreeable with plan. Patient was admitted to Medicine under the care of Dr. Lalito You. Final diagnoses: Diabetic foot infection ([facility]) MDM MDM Number of Diagnoses or Management Options Diabetic foot infection ([facility]) Diagnosis management comments: 5 Amount and/or Complexity of Data Reviewed Clinical lab tests: ordered and reviewed Tests in the radiology section of CPT??: ordered and reviewed Discussion of test results with the performing providers: yes Decide to obtain previous medical records or to obtain history from someone other than the patient:yes Review and summarize past medical records: yes Discuss the patient with other providers: yes Independent visualization of images, tracings, or specimens: yes Patient Progress Patient progress: stable Disposition Admitted The patient's pain was managed to an adequate level weighing risk vs. Benefit of further medications. At the end of my care of this patient, the patient's pain was 9 on a zero to ten scale. Any further pain treatment will be at the discretion of the provider following up with the patient based on their clinical assessment. The patient's condition at the end of my care: Stable documented in this encounter Miscellaneous Notes * Result Encounter Note - Obi Hancock MD - 05/04/20202026 EST I reviewed results. This was communicated to Dr. Jona Light (ID) personally via phone by me. GPBs in 1/ bottles at 37 hours, suspect contaminant. Dr. Light will review with microbiology lab. 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 Action: notified and spoke to the pt. Response: Pt signed AMA paperwork, left the unit at 2009. LIZZ RUIZ RN 05/04/2020 20:12 * Plan of Care - Jonelle Sun RN - 05/04/2020 1410 EST Problem: Daily Care Plan Goals Goal: Care Plan Documentation Flowsheets (Taken 05/04/2020 4940) Area of Focus: Discharge Plan Goal This Shift: Discharge Note: Data: Pt admitted overnight for recurrent osteomyelitis of L first toe. Pain 8/10 in toe, described as sharp and aching; pt states baseline neuropathy pain in toe 5/10. FSBGL mid 200's during shift. MRI of L toe performed. Pt hopeful to discharge home today. She willingly participates in education, expressing eagerness to learn. Action: Pt medicated for pain per eMAR. Limb elevated and repositioned for comfort. Insulin administered for elevated FSBGL, see eMAR. Unclear at this time if patient will d/c today. Education provided and verbalized back to this customs entry writer by pt, expressing understanding of teaching. Response: Pt updated on unclear plan for d/c. Pain decreased with medication and elevation. JONELLE SUN RN 05/04/2020 14:00 * Plan of Care - Lizz Ruiz RN - 05/04/2020 0229 EST Data: Pt admitted d/t increased clear/purulent drainage from the plantar aspect of left great toe, redness and swelling noted, reports 9/10 throbbing, sharp, I can't describe it Pain from left great toe up to the medial aspect of ankle, tachycardic, ..Blood pressure 119/71, pulse (!) 106, temperature 36.7 ??C (98.1 ??F), temperature source Oral, resp. rate 19, height 162.6 cm (64), weight 89.8 kg (198 lb), SpO2 96 %. Action: Completed Vanco IV ix1, area covered with dry dressing, encouraged aggressive elevation to LLE, promoted rest, clustered care, meds given as ordered. Response: Pt resting, remains tachycardic, denies chest pain or feeling that heart is beating fast,anticipating discharge home today (familiar with her wound care). LIZZ RUIZ RN 05/04/2020 2:29 documented in this encounter Plan of Treatment Upcoming Encounters Date Type Department Care Team (Late st Contact Info) Description 02/21/2024 9:45 EDT Office Visit [facility] Adult Primary Care - [address] [id number] Carrington Calderon MD [address] [place] [address] [phone] 02/27/2024 8:30 EDT Telemedicine [facility] Sleep Program - [address] [id number] Rn, Sleep 02/29/2024 10:30 EDT Appointment [facility] Radiology Nuclear Medicine and PET - [address] [id number] 02/29/2024 14:30 EDT Appointment [facility] Radiology Nuclear Medicine and PET - [address] [id number] 03/01/2024 8:00 EDT Appointment [facility] Radiology Nuclear Medicine and PET - [address] [id number] 03/01/2024 9:30 EDT Appointment [facility] Radiology Nuclear Medicine and PET - [address] [id number] documented as of this encounter Procedures Procedure Name Priority Date/Time Associated Diagnosis Comments MR FOOT W WO CONTRAST LEFT Routine 05/04/2020 13:26 EST BACTERIAL CULTURE, BLOOD Routine 05/04/2020 5:47 EST BACTERIAL CULTURE, BLOOD Routine 05/04/2020 5:40 EST COMPLETE BLOOD COUNT Routine 05/04/2020 5:32 EST BUN Routine 05/04/2020 5:32 EST CREATININE Routine 05/04/2020 5:32 EST ELECTROLYTES Routine 05/04/2020 5:32 EST ZZCOVID-19 TEST [facility] PCR STAT 05/03/2020 23:59 EST COVID-19 TESTING STAT 05/03/2020 23:5 9 EST XR FOOT LEFT 3 OR MORE VIEWS STAT 05/03/2020 21:48 EST SED RATE STAT 05/03/2020 21:38 EST COMPLETE BLOOD COUNT AND DIFFERENTIAL STAT 05/03/2020 21:38 EST C REACTIVE PROTEIN STAT 05/03/2020 21 :38 EST HEMOGLOBIN A1C Add-On 05/03/2020 21:38 EST documented in this encounter Results * MR FOOT W WO CONTRAST LEFT (05/04/2020 13:26 EST) Anatomical Region Laterality Modality Lower Extremities Left Magnetic Reson ance 06/20/2020 16:0 2 EST Impressions 06/20/2020 16:02 EST 1. ??Interval progression of osteomyelitis in the first proximal phalanx. 2. ??Interval improvement of osteomyelitis in the first distal phalanx. 3. ??Diffuse soft tissue swelling with an ulcer on the plantar aspect of the first great toe. ??No significant fluid collection. Findings were communicated to Dr. Bell by Dr. Florez on 05/04/2020 at 2:55 PM via telephone. Exam originally read on backup PACS at time of cyber attack, above report is transcribed without change from original typed or written report. After repeat review at time of finalization, including review of any relevant prior exams and pertinent medical record, no changes are necessary. Final report delayed by downtime. No significant changes to preliminary report. I have personally reviewed the images and the above interpretation and agree with the findings. Narrative 06/20/2020 16:02 EST MRI left foot with and without contrast on 05/04/2020 at 12:06 PM Clinical Indication: Concern for osteomyelitis of the left great toe. Comparison: Right foot radiographs on 05/03/2020 and MRI left foot on 03/09/2020. Findings: Compared to 03/19/2020, there has been interval increase in T1 hypointensity in the first proximal phalanx. ??There is also associated increased STIR signal likely representing bone marrow edema, associated with enhancement on postcontrast series. There has been interval improvement in T1 hypointensity in the first distal phalanx. ??There is a residual increased STIR signal in the distal phalanx from bone marrow edema, and diminished enhancement. There is increased STIR signal in the soft tissue of the great toe along the plantar aspect compatible with soft tissue swelling, associated with diffuse enhancement. ??There is also a soft tissues ulcer on the plantar aspect of the great toe over the interphalangeal joint. No significant fluid collection. Procedure Note Broderick Rossi MD - 06/20/2020 MRI left foot with and without contrast on 05/04/2020 at 12:06 PM Clinical Indication: Concern for osteomyelitis of the left great toe. Comparison: Right foot radiographs on 05/03/2020 and MRI left foot on03/09/2020. Findings: Compared to 03/19/2020, there has been interval increase in [id number] in the first proximal phalanx. There is also associatedincreased STIR signal likely representing bone marrow edema, associatedwith enhancement on postcontrast series. There has been interval improvement in T1 hypointensity in the firstdistal phalanx. There is a residual increased STIR signal in the distalphalanx from bone marrow edema, and diminished enhancement. There is increased STIR signal in the soft tissue of the great toe alongthe plantar aspect compatible with soft tissue swelling, associated withdiffuse enhancement. There is also a soft tissues ulcer on the plantaraspect of the great toe over the interphalangeal joint. No significant fluid collection. IMPRESSION 1. Interval progression of osteomyelitis in the first proximal phalanx. 2. Interval improvement of osteomyelitis in the first distal phalanx. 3. Diffuse soft tissue swelling with an ulcer on the plantar aspect ofthe first great toe. No significant fluid collection. Findings were communicated to Dr. Bell by Dr. Florez on 05/04/2020 at2:55 PM via telephone. Exam originally read on backup PACS at time of cyber attack, above reportis transcribed without change from original typed or written report. Afterrepeat review at time of finalization, including review of any relevantprior exams and pertinent medical record, no changes are necessary. Final report delayed by downtime. No significant changes to preliminaryreport. I have personally reviewed the images and the above interpretation andagree with the findings. Gerry Muller MD IMG MRI ORDERA BLES * BACTERIAL CULTURE, BLOOD (05/04/2020 5:47 EST) Organism ID No Growth at 5 days 05/09/2020 7:45 EST [facility] Blood VENOUS BLOOD / Unknown Blood Culture / Unknown 05/04/2020 5:47 EST 05/04/2020 7:33 EST Sara Banks MD MICROBIOLOGY - GENER AL ORDERABLES [facility] [address] [place] [address] * (ABNORMAL) BACTERIAL CULTURE, BLOOD (05/04/2020 5:40 EST) Organism ID Corynebacterium species(AA) 05/06/2020 14:29 EST [facility] Comment:Detected in the aero bic bottle at 37 hours Blood VENOUS BLOOD / Unknown Blood Culture / Unknown 05/04/2020 5:40 EST 05/04/2020 7:33 EST Sara Banks MD MICROBIOLOGY - GENER AL ORDERABLES [facility] [address] [place] [address] * (ABNORMAL) COMPLETE BLOOD COUNT (05/04/2020 5:32 EST) WBC 13.43(H) 4.00 - 12.40 K/cmm 05/04/2020 6:24 [facility] RBC 4.27 3.86 - 5.04 M/cmm 05/04/2020 6:24 [facility] Hemoglobin 13.1 11.6 - 15.2 gm/dL 05/04/2020 6:24 [facility] HCT 38.3 34.9 - 44.4 % 05/04/2020 6:24 [facility] MCV 90 81 - 98 fl 05/04/2020 6:24 [facility] MCH 30.7 26.7 - 33.3 pg 05/04/2020 6:24 [facility] MCHC 34.2 32.1 - 35.9 gm/dL 05/04/2020 6:24 [facility] RDW-CV 12.4 <14.7 % 05/04/2020 6:24 [facility] RDW-SD 40.6 <50.4 fl 05/04/2020 6:24 [facility] PLT 335 141 - 377 K/cmm 05/04/2020 6:24 [facility] MPV 10.0 9.5 - 12.7 fl 05/04/2020 6:24 [facility] Blood VENOUS BLOOD / Unknown Venipuncture / Unknown 05/04/2020 5:32 EST 05/04/2020 6:11 EST Lalito You MD MPH HEMATOLOGY & PF4 OR DERABLES [facility] [address] [place] [address] * (ABNORMAL) CREATININE (05/04/2020 5:32 EST) Creatinine 0.46(L) 0.52 - 1.04 mg/dL 05/04/2020 6:52 [facility] eGFR 129 >60 mL/min/1.7 3m2 05/04/2020 6:52 [facility] Comment:eGFR calculated gil curtis CKD-EPI equation for non- Americans. Multiply eGFR by 1.16 for patients. Blood VENOUS BLOOD / Unknown Venipuncture / Unknown 05/04/2020 5:32 EST 05/04/2020 6:22 EST Lalito You MD MPH CHEMISTRY & BLOOD G ORDERABLES Performing Organization Address [facility] Co de Phone Number [facility] [address] [place] [address] * BUN (05/04/2020 5:32 EST) BUN 17 10 - 26 mg/dL 05/04/2020 6:52 [facility] Blood VENOUS BLOOD / Unknown Venipuncture / Unknown 05/04/2020 5:32 EST 05/04/2020 6:22 EST Lalito You MD MPH CHEMISTRY & BLOOD G ORDERABLES Performing Organization Address City/[facility] de Phone Number [facility] [address] [place] [address] * ELECTROLYTES (05/04/2020 5:32 EST) Sodium 137 136 - 145 mEq/L 05/04/2020 6:52 [facility] Potassium 4.4 3.5 - 5.0 mEq/L 05/04/2020 6:52 [facility] Chloride 104 96 - 110 mEq/L 05/04/2020 6:52 [facility] CO2 Total 24 22 - 32 mEq/L 05/04/2020 6:52 [facility] Blood VENOUS BLOOD / Unknown Venipuncture / Unknown 05/04/2020 5:32 EST 05/04/2020 6:22 EST Lalito You MD MPH CHEMISTRY & BLOOD G ORDERABLES Performing Organization Address [facility] Co de Phone Number [facility] [address] [place] [phone] * COVID-19 TEST [facility] PCR (05/03/2020 23:59 EST) Swab ENTIRE NASOPHARYNX / Unknown Swab / Unknown 05/03/2020 23:59 EST 05/04/2020 0:01 EST Fran Barbosa MD MICROBIOLOGY - GENERAL ORDERABLES Performing Organization Address [facility] Co de Phone Number [facility] [address] [place] [phone] * COVID-19 TESTING (05/03/2020 23:59 EST) COVID-19 rt-PCR Result Negative Negative 05/04/2020 9:49 EST [facility] Comment: This test has [...] history, and epidemiological information. Performed on the [employer] Fusion instrument Performing Lab [place] [facility] 05/04/2020 9:49 EST [facility] Swab ENTIRE NASOPHARYNX / Unknown Swab / Unknown 05/03/2020 23:59 EST 05/04/2020 0:01 EST Fran Barbosa MD MICROBIOLOGY - GENERAL ORDERABLES [facility] [address] [place] [address] * XR FOOT LEFT 3 OR MORE VIEWS (05/03/2020 21:48 EST) Anatomical Region Laterality Modality Lower Extremities Left Computed Radio graphy 05/26/2020 11:2 4 EST Narrative 05/26/2020 11:24 EST Clinical Indication: Diabetic foot Examination: Left foot 3 views 04/25/2020 at 2137 hours Technique: AP, oblique, and lateral views of the left foot were obtained. Comparisons: None available at this time. Subsequent comparison films made available March 07, 2020. Findings: ??There is a rounded calcification within the dorsal soft tissues of the left foot at the level of the second to third intermetatarsal region. ??There is some soft tissue swelling over the medial ankle and hindfoot region. ??There is no evidence of bone or joint space abnormality to suggest osteomyelitis. ??A normal osseous tibiale externum is noted as a normal variant adjacent to the tarsal navicular. Summary: No evidence of osteomyelitis. ??Medial soft tissue swelling ankle and hindfoot. Final report delayed by downtime. No significant changes to preliminary report. Procedure Note Irineo Guevara MD - 05/26/2020 Clinical Indication: Diabetic foot Examination: Left foot 3 views 04/25/2020 at 2137 hours Technique: AP, oblique, and lateral views of the left foot wereobtained. Comparisons: None available at this time. Subsequent comparison films madeavailable March 07, 2020. Findings: There is a rounded calcification within the dorsal soft tissuesof the left foot at the level of the second to third intermetatarsalregion. There is some soft tissue swelling over the medial ankle andhindfoot region. There is no evidence of bone or joint space abnormalityto suggest osteomyelitis. A normal osseous tibiale externum is noted as anormal variant adjacent to the tarsal navicular. Summary: No evidence of osteomyelitis. Medial soft tissue swelling ankleand hindfoot. Final report delayed by downtime. No significant changes to preliminaryreport. Fran Barbosa MD IMG DIAGNOSTI C IMAGING ORDERABLES * (ABNORMAL) HEMOGLOBIN A1C (05/03/2020 21:38 EST) Hemoglobin A1c 9.1(H) <5.7 % 05/05/2020 8:32 EST [facility] Comment: Glycemic Status References: Normal: ??<5.7% Pre-Diabetes: ??5.7% - 6.4% Diagnostic of Diabetes: ??> or = 6.5% (if confirmed) Goals for glycemic control in diabetics (ADA 2017): <7.0% target for non adults with diabetes. <7.5% target for children and adolescents with Type I Diabetes. More or less stringent targets may be appropriate for individual patients. Est Avg Glucose 214 mg/dL 0 8:32 EST [facility] Comment:The eAG represents t he A1c result expressed as average glucose in mg/dL. Blood VENOUS BLOOD / Unknown Venipuncture / Unknown 05/03/2020 21:38 EST 05/03/2020 21:55 EST Sara Banks MD CHEMISTRY & BLOOD GA S ORDERABLES [facility] [address] [place] [phone] * (ABNORMAL) SED. RATE:WESTERGREN (05/03/2020 21:38 EST) Sed Rate 36(H) 0 - 20 mm/hr 05/03/2020 22:09 EST [facility] Blood VENOUS BLOOD / Unknown Venipuncture / Unknown 05/03/2020 21:38 EST 05/03/2020 21:55 EST Fran Barbosa MD HEMATOLOGY & PF4 ORDERABLES Performing Organization Address City/[facility]/ZIP Co de Phone Number [facility] [address] [place] [address] * (ABNORMAL) C REACTIVE PROTEIN (05/03/2020 21:38 EST) Pathologist [facility] C-Reactive Protein 39.2(H) <10.0 mg/L 05/03/2020 22:19 EST [facility] Blood VENOUS BLOOD / Unknown Venipuncture / Unknown 05/03/2020 21:38 EST 05/03/2020 21:55 EST Fran Barbosa MD CHEMISTRY & B LOOD GAS ORDERABLES Performing Organization Address [facility] Co de Phone Number [facility] [address] [place] [address] * (ABNORMAL) COMPLETE BLOOD COUNT AND DIFFERENTIAL (05/03/2020 21:38 EST) Pathologist [facility] WBC 16.98(H) 4.00 - 12.40 K/cmm 05/03/2020 22:03 [facility] RBC 4.38 3.86 - 5.04 M/cmm 05/03/2020 22:03 [facility] Hemoglobin 13.7 11.6 - 15.2 gm/dL 05/03/2020 22:03 [facility] HCT 38.9 34.9 - 44.4 % 05/03/2020 22:03 [facility] MCV 89 81 - 98 fl 05/03/2020 22:03 [facility] MCH 31.3 26.7 - 33.3 pg 05/03/2020 22:03 [facility] MCHC 35.2 32.1 - 35.9 gm/dL 05/03/2020 22:03 [facility] RDW-CV 12.5 <14.7 % 05/03/2020 22:03 [facility] RDW-SD 41.1 <50.4 fl 05/03/2020 22:03 [facility] PLT 365 141 - 377 K/cmm 05/03/2020 22:03 [facility] MPV 9.7 9.5 - 12.7 fl 05/03/2020 22:03 [facility] % Neutrophils 56.7 % 05/03/2020 22:03 [facility] % Lymphocytes 29.4 % 05/03/2020 22:03 [facility] % Monocytes 8.8 % 05/03/2020 22:03 [facility] % Eosinophils 4.4 % 05/03/2020 22:03 [facility] % Basophils 0.5 % 05/03/2020 22:03 [facility] % Immature Grans 0.2 % 05/03/20 20 22:03 [facility] Absolute Neutrophils 9.61(H) 2.20 - 8.85 K/cmm 05/03/2020 22:03 [facility] Absolute Lymphocytes 5.00(H) 1.09 - 3.30 K/cmm 05/03/2020 22:03 [facility] Absolute Monocytes 1.49(H) 0.10 - 0.80 K/cmm 05/03/2020 22:03 [facility] Absolute Eosinophils 0.75(H) 0.03 - 0.61 K/cmm 05/03/2020 22:03 [facility] ABS Basophils 0.09 0.01 - 0.11 K/cmm 05/03/2020 22:03 [facility] Absolute Immature Grans 0.04 0.00 - 0.06 K/cmm 05/03/2020 22:03 [facility] Type of Differential: Auto 05/03/2020 22:03 [facility] Blood VENOUS BLOOD / Unknown Venipuncture / Unknown 05/03/2020 21:38 EST 05/03/2020 21:55 EST Fran Barbosa MD PACKAGES & DN A PROBE ORDERABLES [facility] [address] [place] [address] documented in this encounter Visit Diagnoses Diagnosis Diabetic foot infection (HCC-CMS)- Primary Type II or unspecified type diabetes mellitus with other specified manifestations, not stated as uncontrolled Diabetic foot infection (HCC-CMS) Type II or unspecified type diabetes mellitus with other specified manifestations, not stated as uncontrolled 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 (HCC-CMS) Type II or unspecified type diabetes mellitus with other specified manifestations, not stated as uncontrolled Sepsis without acute organ dysfunction, due to unspecified organism (HCC-CMS) 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 (HCC-CMS) Type II or unspecified type diabetes mellitus with other specified manifestations, not stated as uncontrolled documented in this encounter Administered Medications Inactive Administered Medications - up to 3 most recent administrations Medication Order MAR Action Action Date Dose Rate Site acetaminophen (TYLENOL) tablet 650 mg 650 mg, oral, EVERY 6 HOURS PRN, Starting on 05/04/20 at 0022, Until 05/04/20 at 2228, Pain, Fever, Routine Given 05/04/2020 18:08 EST 650 mg Given 05/04/2020 12:13 EST 650 mg Given 05/04/2020 1:17 EST 650 mg enoxaparin (LOVENOX) injection 40 mg 40 mg, subcutaneous, DAILY, First dose on 05/04/20 at 0900, Until Discontinued, Routine Given 05/04/2020 10:04 EST 40 mg gabapentin (NEURONTIN) capsule 100 mg 100 mg, oral, 3 TIMES DAILY, First dose on 05/04/20 at 0900, Until Discontinued, Routine Given 05/04/2020 13:[address] 100 mg Given 05/04/2020 10:04 EST 100 mg gadobutroL (GADAVIST PFS) solution solution 1-15 mmol 1-15 mmol (1-15 mL), intravenous, Once in imaging, 1 dose, Starting on 05/04/20 at 1241, Until 05/04/20 at 1327, Routine, Imaging Protocol Orders Given 05/04/2020 13:27 EST 9 mmol insulin aspart U-100 (NOVOLOG FLEXPEN) injection subcutaneous, 3 TIMES DAILY WITH MEALS, First dose on 05/04/20 at 0800, Until Discontinued, Routine Given 05/04/2020 13:41 EST 5 Units Given 05/04/2020 7:29 EST 5 Units insulin glargine (LANTUS SOLOSTAR) injection pen 22 Units 22 Units (rounded from 22.45 Units = 0.25 Units/kg/day ? 89.8 kg), subcutaneous, AT BEDTIME, First dose on 05/04/20 at 0045, Until Discontinued, Routine Given 05/04/2020 1:16 EST 22 Units oxyCODONE (ROXICODONE) immediate release tablet 5 mg 5 mg, oral, EVERY 4 HOURS PRN, Starting on 05/04/20 at 0555, Until 05/04/20 at 2228, Pain, Routine Given 05/04/2020 12:13 EST 5 mg Given 05/04/2020 6:15 EST 5 mg vancomycin (VANCOCIN) 1,750 mg in dextrose 5% (D5W) 500 mL IVPB 1,750 mg (rounded from 1,796 mg = 20 mg/kg ? 89.8 kg), intravenous, Administer over 105 Minutes, NOW X1, 1 dose, On 05/03/20 at 2245, Type of Therapy: Empiric, Suspected Indication (Select all that apply): Moderate or severe diabetic foot infection, ID Consult: No, STAT Given 05/03/2020 23:06 EST 1,750 mg documented in this encounter Active and Recently Administered Medications Times are shown in EST. Scheduled Medication Order 05/02/2020 05/03/2020 05/04/2020 enoxaparin (LOVENOX) injection 40 mg 40 mg, subcutaneous, DAILY, First dose on 05/04/20 at 0900, Until Discontinued, Routine 1004 (Given - Provid er: Jonelle Sun RN) gabapentin (NEURONTIN) capsule 100 mg 100 mg, oral, 3 TIMES DAILY, First dose on 05/04/20 at 0900, Until Discontinued, Routine 1004 (Given - Provid er: Jonelle Sun RN)1344 (Given - Provider: Jonelle Sun RN)2100 (Canceled Entry - Provider: Batch Job User Admin - Comment: Automatically canceled at discontinue of medication order) gadobutroL (GADAVIST PFS) solution solution 1-15 mmol (COMPLETED) 1-15 mmol (1-15 mL), intravenous, Once in imaging, 1 dose, Starting on 05/04/20 at 1241, Until 05/04/20 at 1327, Routine, Imaging Protocol Orders 1327 (Given - Provid er: Brynn Kenny) insulin aspart U-100 (NOVOLOG FLEXPEN) injection subcutaneous, 3 TIMES DAILY WITH MEALS, First dose on 05/04/20 at 0800, Until Discontinued, Routine 0729 (Given - Provid er: Jonelle Sun RN - Comment: BGL 248)1341 (Given - Provider: Jonelle Sun RN - Comment: FS 220)1803 (Not Given - Provider: Konrad Dumont, RN - Reason: Patient/family refused - Comment: fs 168, not hungry) insulin aspart U-100 (NOVOLOG FLEXPEN) injection subcutaneous, AT BEDTIME, First dose on 05/04/20 at 0045, Until Discontinued, Routine 0043 (Hold - Provide r: Lizz Ruiz RN - Reason: Order parameters not met)2100 (Canceled Entry - Provider: Batch Job User Admin - Comment: Automatically canceled at discontinue of medication order) insulin glargine (LANTUS SOLOSTAR) injection pen 22 Units 22 Units (rounded from 22.45 Units = 0.25 Units/kg/day ? 89.8 kg), subcutaneous, AT BEDTIME, First dose on 05/04/20 at 0045, Until Discontinued, Routine 0116 (Given - Provid er: Lizz Ruiz RN)2100 (Canceled Entry - Provider: Batch Job User Admin - Comment: Automatically canceled at discontinue of medication order) vancomycin (VANCOCIN) 1,750 mg in dextrose 5% (D5W) 500 mL IVPB (COMPLETED) 1,750 mg (rounded from 1,796 mg = 20 mg/kg ? 89.8 kg), intravenous, Administer over 105 Minutes, NOW X1, 1 dose, On 05/03/20 at 2245, Type of Therapy: Empiric, Suspected Indication (Select all that apply): Moderate or severe diabetic foot infection, ID Consult: No, STAT 2306 (Given - Provider: Mar Aguirre, MARCELO) PRN Medication Order 05/02/2020 05/03/2020 05/04/2020 acetaminophen (TYLENOL) tablet 650 mg 650 mg, oral, EVERY 6 HOURS PRN, Starting on 05/04/20 at 0022, Until 05/04/20 at 2228, Pain, Fever, Routine 0117 (Given - Provid er: Lizz Ruiz RN - Comment: left foot)1213 (Given - Provider: Jonelle Sun RN)1808 (Given - Provider: Konrad Dumont, RN) dextrose 50 % solution 12.5 g 12.5 g (25 mL), intravenous, PRN, Starting on 05/04/20 at 0022, Until 05/04/20 at 2228, Low Blood Sugar, Routine glucagon injection 1 mg 1 mg, intramuscular, PRN, Starting on 05/04/20 at 0022, Until 05/04/20 at 2228, Other, Low blood sugar, Routine lidocaine (PF) 10 mg/mL (1 %) injection 2 mg 2 mg, intradermal, PRN, 4 doses, Starting on 05/04/20 at 0022, Until 05/04/20 at 2228, peripheral intravenous catheter placement, Routine oxyCODONE (ROXICODONE) immediate release tablet 5 mg 5 mg, oral, EVERY 4 HOURS PRN, Starting on 05/04/20 at 0555, Until 05/04/20 at 2228, Pain, Routine 0615 (Given - Provid er: Lizz Ruiz RN)1213 (Given - Provider: Jonelle Sun RN) polyethylene glycol 3350 (MIRALAX) packet 17 g 17 g, oral, DAILY PRN, Starting on 05/04/20 at 0022, Until 05/04/20 at 2228, Constipation, Routine documented in this encounter Orders Medications Ordered That Stan ht Not Have Been Administered Count Last Ordered Date First Ordered Date dextrose 50 % solution 12.5 g 1 05/04/2020 glucagon injection 1 mg 1 05/04/2020 insulin aspart U-100 (NOVOLO G FLEXPEN) injection 1 05/04/2020 lidocaine (PF) 10 mg/mL (1 % ) injection 2 mg 1 05/04/2020 polyethylene glycol 3350 (TX RALAX) packet 17 g 1 05/04/2020 Admission Count Last Ordered Date First Orde red Date ADMIT TO INPATIENT 1 05/03/2020 Transfer Count Last Ordered Date First Orde red Date TEACHING SERVICE 1 05/04/2020 ED BED REQUEST 1 05/03/2020 Discharge Count Last Ordered Date First Orde red Date DISCHARGE PATIENT 1 05/04/2020 documented in this encounter
--- OUTSIDE RECORDS SUMMARY | 2023-12-16 00:41 | XMS_ITS | Encounter Summary ---
Author Organization [facility] Address [address] [place] [address] Care Team Providers Care Commercial Real Estate Associate Name Role Phone Unavailable Primary Care Provider Unavailabl e Reason for Visit * Reason Comments Pain Follow-up Encounter Details Date Type Department Care Team (Late st Contact Info) Description 04/30/2020 8:30 EST Office Visit [facility] Foot & Ankle Program - [address] [address] Elza Navarro DPM [address] [place] [address] Ulcer of great toe, left, with necrosis of bone ([facility]) (Primary Dx); Type 2 diabetes mellitus with diabetic polyneuropathy, with long-term current use of insulin ([facility]) Social History Tobacco Use Types Packs/Day [...] Progress Notes * Elza Navarro, DPM - 04/30/2020 0830 EST Images from the original note were not included. Cristy Luo is a very pleasant 35 y.o. female patient who presents for follow up chronic leftgreat toe ulcer, osteomyelitis. She reports that she has been doing well. She and her have been doing the dressing changes- packing the wound twice a day. She has been wearing the surgical shoe with the offloading insole. It has been comfortable. She has been off antibiotics for about 2 weeks now. No nausea, vomiting, fever, chills. No pain in the foot. She does notice that when she is on the foot more, the foot does swell slightly. Patient Active Problem List Diagnosis Date Noted ??? Osteomyelitis of great toe of left foot ([facility]) 03/12/2020 Priority: Medium ??? Diabetic foot ulcer associated with diabetes mellitus due to underlying condition ([facility]) 03/07/2020 Priority: Medium ??? Diabetic foot infection ([facility]) 03/06/2020 Priority: Medium ??? Diabetic foot ulcer ([facility]) 03/06/2020 Priority: Medium ??? Cellulitis of great toe of left foot 11/26/2019 Priority: Medium ??? Chronic midline low back pain without sciatica 11/26/2019 Priority: Medium ??? Chronic left ear pain 09/04/2015 Priority: Medium ??? Encounter for sterilization 11/20/2019 ??? Family history of rheumatoid arthritis 09/04/2015 ??? Type 2 diabetes mellitus ([facility]) 09/03/2015 ??? Anxiety and depression 05/12/2010 ??? Migraine with aura and without status migrainosus, not intractable Past Medical History: Diagnosis Date ??? Anxiety ??? Arthritis 12/05/19- Spine- told years ago ??? Diabetes ([facility]) A1c 10.3 on 11/28/2019 ??? History [...] insurance. Testing QID. 100 Each 5 ??? diphenhydrAMINE (BENADRYL) 50 mg capsule Take [...] covered by patient'sinsurance. 100 Each 5 ??? sodium chloride 0.9 %, flush, flush [...] plantar left great toe, as below. Measures 6x mm. Probes deep but no probe to bone. Granular wound base. No undermining. No purulence. No surrounding erythema. No pain on probing. No malodor. No necrosis. Able to extend the toe. Unable to flexthe toe. Protective sensation diminished. Left great toe ulcer, after debridement: ASSESSMENT: 1. Ulcer of great toe, left, with necrosis of bone ([facility]) 2. Type 2 diabetes mellitus with diabetic polyneuropathy, with long-term current use of insulin ([facility]) No orders of the defined types were placed in this encounter. PLAN: Ms. Luo presents today for follow-up left great toe ulcer, osteomyelitis. Wound has improved since I last saw her, in terms of size. No size of infection. Probes deep but no probe to bone. I did debride the wound today, skin and subcutaneous tissue, less than 20 cm??. We discussed these findings.We discussed treatment options at this point to get this to heal. More she can be off of it, more likely it is to heal. She is going to look into using crutches at home. We discussed the possibility of a knee scooter, however given that she has 4 kids at home, would likely be difficult. I will put an order for crutches if she cannot find the crutches she has at home. She is going to continue to stay out of work. She is going to continue the surgical shoe and offloading insole. She is going to continue with the daily dressing changes with a packing. I am going to see her back in 2 weeks. She knows to call before then if any problems arise and is happy with this plan. Portions of this document have been prepared with speech recognition software or keyboard senior database administrator techniques. Minor irregularities or keyboarding misprints may be present documented in this encounter Plan of Treatment Upcoming Encounters Date Type Department Care Team (Late st Contact Info) Description 02/21/2024 9:45 EDT Office Visit [facility] Adult Primary Care - [address] [address] Carrington Calderon MD 1 [facility] 1 [place] [address] 02/27/2024 8:30 EDT Telemedicine [facility] Sleep Program - [address] [address] Rn, Sleep 02/29/2024 10:[address] [facility] Radiology Nuclear Medicine and PET [address] [address] 02/29/2024 14:[address] [facility] Radiology Nuclear Medicine and PET [address] [address] 03/01/2024 8:[address] [facility] Radiology Nuclear Medicine and PET [address] [address] 03/01/2024 9:[address] [facility] Radiology Nuclear Medicine and [address] [id number] documented as of this encounter Visit Diagnoses Diagnosis Ulcer of great toe, left, with necrosis of bone ([facility])- Primary Type 2 diabetes mellitus with diabetic polyneuropathy, with long-term current use of insulin ([facility]) documented in this encounter Historical Medications * This list may reflect changes made after this encounter. Medication Sig Dispensed Refills Start Date End Date gabapentin (NEURONTIN) 100 mg capsule Take 100 mg by mouth 3 times daily. 06/05/2020 added in this encounter Orders Equipment Count Last Ordered Date First Orde red Date GENERIC ORTHO VENDOR DME 1 04/30/2020 documented in this encounter
--- OUTSIDE RECORDS SUMMARY | 2023-12-16 00:41 | XMS_ITS | Encounter Summary ---
Author Organization [facility] Address [address] [place] [address] Care Team Providers Care Medical Assistant Ob Gyn Name Role Phone Carrington Calderon MD Primary Care Provi anders Abigail Díaz Unavailable [phone] Carmelo Hendrickson Unavailable Unavailable Encounter Details Date Type Department Care Team (Late st Contact Info) Description 03/25/2020 Lab Requisition [facility] Pathology & Laboratory Medicine - [address] [address] Mushtaq Light, DO [address] [facility], [address] [place] [address] Encounter for other general examination [...] Info) Description 02/21/2024 9:45 EDT Office Visit [facility] Adult Primary Care - [address] [phone] Carrington Calderon MD 1 [facility] 1 [place] [phone] 02/27/2024 8:30 EDT Telemedicine [facility] Sleep Program - [address] [phone] Rn, Sleep 02/29/2024 10:30 EDT Appointment [facility] Radiology Nuclear Medicine and PET - [address] [address] 02/29/2024 14:30 EDT Appointment [facility] Radiology Nuclear [facility] and [address] [address] 03/01/2024 8:00 EDT Appointment [facility] Radiology Nuclear Medicine and [address] [address] 03/01/2024 9:30 EDT Appointment [facility] Radiology Nuclear Medicine and PET [address] [address] documented as of this encounter Procedures Procedure Name Priority Date/Time Associated Diagnosis Comments SED RATE Today 03/25/2020 13:25 EDT Encounter for other general examination COMPLETE BLOOD COUNT AND DIFFERENTIAL Today 03/25/2020 13:25 EDT Encounter for other general examination C REACTIVE PROTEIN Today 03/25/2020 13 :25 EDT Encounter for other general examination CREATININE Today 03/25/2020 13:25 EDT Encounter for other general examination documented in this encounter Results * (ABNORMAL) SED. RATE:DANEREN (03/25/2020 13:25 EDT) Sed Rate 40(H) 0 - 20 mm/hr 03/25/2020 20:19 EDT [facility] Comment:Note: Sample greater than 4 hours old (but less than 12 hours) when tested. If refrigerated, sample is stable when tested within 12 hours of collection. Blood VENOUS BLOOD / Unknown 03/25/2020 13:25 EDT 03/25/2020 19:10 EDT Mushtaq Light DO HEMATOLOGY & PF4 OR DERABLES [facility] [address] [place] [address] * (ABNORMAL) COMPLETE BLOOD COUNT AND DIFFERENTIAL (03/25/2020 13:25 EDT) WBC 13.46(H) 4.00 - 12.40 K/cmm 03/25/2020 19:49 [facility] RBC 4.59 3.86 - 5.04 M/cmm 03/25/2020 19:49 [facility] Hemoglobin 13.8 11.6 - 15.2 gm/dL 03/25/2020 19:49 [facility] HCT 40.3 34.9 - 44.4 % 03/25/2020 19:49 [facility] MCV 88 81 - 98 fl 03/25/2020 19:49 [facility] MCH 30.1 26.7 - 33.3 pg 03/25/2020 19:49 [facility] MCHC 34.2 32.1 - 35.9 gm/dL 03/25/2020 19:49 [facility] RDW-CV 12.4 <14.7 % 03/25/2020 19:49 [facility] RDW-SD 40.0 <50.4 fl 03/25/2020 19:49 [facility] PLT 357 141 - 377 K/cmm 03/25/2020 19:49 [facility] MPV 10.1 9.5 - 12.7 fl 03/25/2020 19:49 [facility] % Neutrophils 52.3 % 03/25/2020 19:49 [facility] % Lymphocytes 36.8 % 03/25/2020 19:49 [facility] % Monocytes 7.3 % 03/25/2020 19:49 [facility] % Eosinophils 2.9 % 03/25/2020 19:49 [facility] % Basophils 0.5 % 03/25/2020 19:49 [facility] % Immature Grans 0.2 % 03/25/20 19:49 [facility] Absolute Neutrophils 7.04 2.20 - 8.85 K/cmm 03/25/2020 19:49 [facility] Absolute Lymphocytes 4.95(H) 1.09 - 3.30 K/cmm 03/25/2020 19:49 T [facility] Absolute Monocytes 0.98(H) 0.10 - 0.80 K/cmm 03/25/2020 19:49 T [facility] Absolute Eosinophils 0.39 0.03 - 0.61 K/cmm 03/25/2020 19:49 [facility] ABS Basophils 0.07 0.01 - 0.11 K/cmm 03/25/2020 19:49 T [facility] Absolute Immature Grans 0.03 0.00 - 0.06 K/cmm 03/25/2020 19:49 [facility] Type of Differential: Auto 03/25/2020 19:49 [facility] Blood VENOUS BLOOD / Unknown 03/25/2020 13:25 EDT 03/25/2020 19:10 EDT Mushtaq Light DO PACKAGES & DNA PROB E ORDERABLES Performing Organization Address [facility] de Phone Number [facility] [address] [place] [address] * (ABNORMAL) CREATININE (03/25/2020 13:25 EDT) [facility] Signature Creatinine 0.44(L) 0.52 - 1.04 mg/dL 03/25/2020 19:46 EDT [facility] eGFR 131 >60 mL/min/1.7 3m2 03/25/2020 19:46 EDT [facility] Comment:eGFR calculated usbrie g CKD-EPI equation for non- Americans. Multiply eGFR by 1.16 for patients. Blood VENOUS BLOOD / Unknown 03/25/2020 13:25 EDT 03/25/2020 19:10 EDT Mushtaq Light DO CHEMISTRY & BLOOD G ORDERABLES Performing Organization Address [facility] Co de Phone Number [facility] [address] [place] [address] * C REACTIVE PROTEIN (03/25/2020 13:25 EDT) C-Reactive Protein <7.0 <10.0 mg/L 03/25/2020 19:46 EDT [facility] Blood VENOUS BLOOD / Unknown 03/25/2020 13:25 EDT 03/25/2020 19:10 EDT Mushtaq Light DO CHEMISTRY & BLOOD G ORDERABLES [facility] [address] [place] [address] documented in this encounter Visit Diagnoses Diagnosis Encounter for other general examination documented in this encounter Additional Health Concerns Infection Onset Date Last Indicated Resolved Time R/O COVID-19 08/04/2020 08/04/2020 08/04/2020 11:4 0 EST documented as of this encounter Care Teams Medical Assistant Ob Gyn Relationship Specialty Start Date End Date Carrington Calderon MD 1 [facility] Level [address] [place] [address] PCP - General Internal Medicine - Primary Care 12/09/20 Abigail Díaz Kettle Operator Head 04/21/23 Carmelo Hendrickson Coordinator 12/01/23 documented as of this encounter
--- OUTSIDE RECORDS SUMMARY | 2023-12-16 00:41 | XMS_ITS | Encounter Summary ---
Author Organization [facility] Address [address] [place] [address] Care Team Providers Care Wallpaper Embosser Helper Name Role Phone Unavailable Primary Care Provider Unavailabl e Reason for Visit * Reason Comments Foot Problem Encounter Details Date Type Department Care Team (Late st Contact Info) Description 05/06/2020 10:30 EST Office Visit [facility] Foot & Ankle Program - [address] [place] [address] Elza Navarro DPM [address] [place] [phone] Ulcer of great toe, left, with necrosis of bone ([facility]) (Primary Dx); Type 2 diabetes mellitus with diabetic polyneuropathy, with long-term current use of insulin ([facility]) Social History Tobacco Use Types [...] Progress Notes * Elza Navarro, DPM - 05/06/2020 1030 EST Cristy Luo is a very pleasant 35 y.o. female patient who presents for follow up left great toe ulcer, osteomyelitis. She is here today for an acute visit due to recent hospitalization for the toe. She reports that she went into the hospital at the end of last week after noticing some purulent drainage, increased redness, swelling, pain. She does report that prior to admission, she had beenon her foot a good bit more. She did have work-up in the hospital including an x-ray and MRI which showed osteomyelitis of the great toe. She had to leave [place] due to childcare issues at home. She hassince been started back on p.o. antibiotics-Augmentin. She had her first dose yesterday. She has been changing the dressing herself at home. She reports that the toe has been looking better since admission-decreased redness and swelling. No purulent drainage over the last few days. Overall she has been feeling well and denies nausea, vomiting, fever, chills. She does report that she is picking upher knee scooter today. She also is getting some help at home from her mom and some help with taking care of the kids so that she can be off the foot more. Patient Active Problem List Diagnosis Date Noted ??? 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 ([facility]) 05/03/2020 Priority: Medium ??? Osteomyelitis of great toe of left foot ([facility]) 03/12/2020 Priority: Medium ??? Diabetic foot ulcer associated with diabetes mellitus due to underlying condition ([facility]) 03/07/2020 Priority: Medium ??? Diabetic foot infection ([facility]) 03/06/2020 Priority: Medium ??? Diabetic foot ulcer ([facility]) 03/06/2020 Priority: Medium ??? Cellulitis of great toe of left foot 11/26/2019 Priority: Medium ??? Chronic midline low back pain without sciatica 11/26/2019 Priority: Medium ??? Chronic left ear pain 09/04/2015 Priority: Medium ??? Encounter for sterilization 11/20/2019 ??? Family history of rheumatoid arthritis 09/04/2015 ??? Type 2 diabetes mellitus ([facility]) 09/03/2015 ??? Anxiety and depression 05/12/2010 ??? Migraine with aura and without status migrainosus, not intractable Past Medical History: Diagnosis Date ??? Anxiety ??? Arthritis 12/05/19- Spine- told years ago ??? Diabetes ([facility]) A1c 10.3 on 11/28/2019 ??? History [...] Reported on 03/13/2020) 2 Cap 0 ??? gabapentin (NEURONTIN) 100 mg capsule Take [...] EXAM: General: AO x 3, NAD Lower extremity:??LLE:??Palpable pedal pulses. ??Skin temperature gradient within normal limits. ??Capillary filling time less than 3 seconds to all toes. ??Ulcer plantar left great toe.??Measures 6 x 8 mm. ??Probes to bone. Fibrogranular wound base. ??No undermining. ??No purulence. ??No surrounding erythema. No pain on probing.??No malodor. ??No necrosis. ??Able to extend the toe. ??Unable to flex the toe. ??Protective sensation diminished. ASSESSMENT: 1. Ulcer of great toe, left, with necrosis of bone ([facility]) 2. Type 2 diabetes mellitus with diabetic polyneuropathy, with long-term current use of insulin ([facility]) No orders of the defined types were placed in this encounter. PLAN: Ms. Luo presents today for follow-up chronic left great toe ulcer with history of osteomyelitis. Recent worsening of the ulcer and recurrence of the infection here. On exam today, wound does probe to bone again. Redness and swelling have improved since hospitalization. No purulent drainage today.I did debride the wound, skin and subcutaneous tissue, less than 20 cm??. I also reviewed her x-rayand MRI. We discussed treatment options at this point including trial of another round of antibiotics with continued wound care and more aggressive offloading, versus amputation of the toe. I discussed this with Dr. Light with infectious disease. We will give this another trial of wound care and a ntibiotics given that she has improved her blood glucose control and has some support at home as well as a knee scooter to stay off the foot more. She is going to be on Augmentin for 6 weeks and thiswill be managed by Dr. Light. She is going to continue with the dressing changes at home with thepacking and feels comfortable doing these. She is going to stay off the foot is much as she is able. I will see her back in 1 to 2 weeks. We did discuss that if this does not show improvement on follow-up appointments or if any concern for reasoning, would recommend amputation of the toe at that point. She knows to call with any questions prior to follow-up and is happy with this plan. Portions of this document have been prepared with speech recognition software or keyboard data integration analyst techniques. Minor irregularities or keyboarding misprints may be present documented in this encounter Plan of Treatment Upcoming Encounters Date Type Department Care Team (Late st Contact Info) Description 02/21/2024 9:45 EDT Office Visit [facility] Adult Primary Care - [address] [address] Carrington Calderon MD [address] [place] [phone] 02/27/2024 8:30 EDT Telemedicine [facility] Sleep Program - [address] [address] Rn, Sleep 02/29/2024 10:30 EDT Appointment [facility] Radiology Nuclear Medicine and PET - [address] [phone] 02/29/2024 14:30 EDT Appointment [facility] Radiology Nuclear Medicine and PET - [address] [address] 03/01/2024 8:00 EDT Appointment [facility] Radiology Nuclear Medicine and PET [address] [address] 03/01/2024 9:30 EDT Appointment [facility] Radiology Nuclear Medicine and PET [address] [address] documented as of this encounter Visit Diagnoses Diagnosis Ulcer of great toe, left, with necrosis of bone ([facility])- Primary Type 2 diabetes mellitus with diabetic polyneuropathy, with long-term current use of insulin ([facility]) documented in this encounter Discontinued Medications Medication Sig Discontinue Reason Start Date End Da te AMOXICILLIN ORAL Take by mouth 2 times daily. Error 05/06/2020 documented as of this encounter Historical Medications * This list may reflect changes made after this encounter. Medication Sig Dispensed Refills Start Date End Date amoxicillin-clavulanate (AUGMENTIN) 875-125 mg per tablet Take 1 Tab by mouth every 12 hours. 06/25/2020 AMOXICILLIN ORAL Take by mouth 2 times daily. 05/06/2020 added in this encounter
--- OUTSIDE RECORDS SUMMARY | 2023-12-16 00:41 | XMS_ITS | Encounter Summary ---
Author Organization [facility] Address [address] [place] [address] Care Team Providers Care Adult Literacy Teacher Name Role Phone Unavailable Primary Care Provider Unavailabl e Encounter Details Date Type Department Care Team ([facility] Contact Info) Description 03/31/2020 Documentation Visit [facility] - [address] [place], [place] [id number] Mina Peng RN Social History Tobacco Use Types Packs/Day Years [...] as of this encounter Progress Notes * Mina Peng, MARCELO - 03/31/2020 0917 EDT Patient: Cristy Luo is a 35 y.o. female. Allergies: Citalopram, Other - see comments, and Advil [ibuprofen] LDA: PICC Single Lumen 03/11/20 Basilic CAJ with 3CG Valved Power Inject (Active) Assessment: Medication Order Review Response to therapy?: Improving Change in therapy/dose/frequency: No Side effects or intolerance: None Administration or equipment issues: No IV Assessment: Within defined limits Plan: Patient has nearly exhausted all drug/supplies at home. Delivery of antibiotics and supplies on 04/01. MINA PENG RN 03/31/2020 10:11 * Guido Li [facility] - 03/31/2020 0991 EDT Patient: Cristy Luo is a 35 [...] Labs: Creatinine Date Value Ref Range Status 03/25/2020 0.44 (L) 0.52 - 1.04 mg/dL Final 03/18/2020 0.41 (L) 0.52 - 1.04 mg/dL Final 03/10/2020 0.50 (L) 0.52 - 1.04 mg/dL Final C-Reactive Protein Date Value Ref Range Status 03/25/2020 <7.0 <10.0 mg/L Final 03/18/2020 <7.0 <10.0 mg/L Final 03/06/2020 27.7 (H) <10.0 mg/L Final WBC Date Value Ref Range Status 03/25/2020 13.46 (H) 4.00 - 12.40 K/cmm Final 03/18/2020 11.64 4.00 - 12.40 K/cmm Final 03/10/2020 12.33 4.00 - 12.40 K/cmm Final Sed. Rate Westergren Date Value Ref Range Status 03/25/2020 40 (H) 0 - 20 mm/hr Final Comment: Note: Sample greater than 4 hours old (but less than 12 hours) when tested. If refrigerated, sampleis stable when tested within 12 hours of collection. 03/18/2020 37 (H) 0 - 20 mm/hr Final Comment: Note: Sample greater than 4 hours old (but less than 12 hours) when tested. If refrigerated, sampleis stable when tested within 12 hours of collection. 03/06/2020 25 (H) 0 - 20 mm/hr Final Neutrophils Date Value Ref Range Status 03/25/2020 52.3 % Final 03/18/2020 55.0 % Final 03/06/2020 62.7 % Final Eosinophils Date Value Ref Range Status 03/25/2020 2.9 % Final 03/18/2020 3.4 % Final 03/06/2020 2.2 % Final Total Alkaline Phosphatase Date Value [...] Drug/Food Interaction Review: No Contraindication Review: Yes Stella has exhausted a majority of her medication and supplies that she has at home. Current IV ABX regimen is Cefazolin 2 Grams IV q8h through 04/20/20 for a plantar toe ulcer complicated by osteomyelitis. Plan: Prepared medication and supplies today for 04/03 - 04/09. Will deliver to patients home tomorrow via [employer] express. Will continue to monitor per care plan and reassess next week. GUIDO LI RPH 03/31/2020 16:11 documented in this encounter Plan of Treatment Upcoming Encounters Date Type Department Care Team (Late st Contact Info) Description 02/21/2024 9:45 EDT Office Visit [facility] Adult Primary [facility] - [address] [phone] Carrington Calderon MD [address] [phone] 02/27/2024 8:30 EDT Telemedicine [facility] Sleep Program - [address] [address] Rn, Sleep 02/29/2024 10:30 ED[facility] - [address] [phone] 02/29/2024 14:30 EDT Appointment [facility] Radiology Nuclear Medicine and PET - [address] [address] 03/01/2024 8:00 EDT Appointment [facility] Radiology Nuclear Medicine and PET [address] [phone] 03/01/2024 9:30 EDT [facility] [place] [address] documented as of this encounter Visit Diagnoses Not on filedocumented in this encounter
--- OUTSIDE RECORDS SUMMARY | 2023-12-16 00:41 | XMS_ITS | Encounter Summary ---
Author Organization [facility] Address [address] [place] [address] Care Team Providers Care Overhead Foreman Name Role Phone Unavailable Primary Care Provider Unavailabl e Encounter Details Date Type Department Care Team (Latest Contact Info) Description 03/25/2020 Travel Social History Tobacco Use Types Packs/Day [...] Info) Description 02/21/2024 9:45 EDT Office Visit [facility] Adult Primary Care - [address] [phone] Carrington Calderon MD [address] [phone] 02/27/2024 8:30 EDT Telemedicine [facility] Sleep Program - [address] [address] Rn, Sleep 02/29/2024 10:30 EDT Appointment [facility] Radiology Nuclear Medicine and PET - [address] [id number] 02/29/2024 14:30 EDT Appointment [facility] Radiology Nuclear Medicine and PET [address] [address] 03/01/2024 8:00 EDT Appointment [facility] Radiology Nuclear Medicine and PET [address] [address]12201 03/01/2024 9:30 EDT Appointment [facility] Radiology Nuclear Medicine and PET - [address] [address] documented as of this encounter Visit Diagnoses Not on filedocumented in this encounter
--- OUTSIDE RECORDS SUMMARY | 2023-12-16 00:41 | XMS_ITS | Encounter Summary ---
Author Organization [facility] Address [address] [place] [address] Care Team Providers Care Affirmative Action Specialist Name Role Phone Unavailable Primary Care Provider Unavailabl e Reason for Visit * Reason Comments Diabetes Encounter Details Date Type Department Care Team (Latest Contact Info) Description 04/14/2020 13:30 EST Telemedicine [facility] Adult Primary Care - [address] [address] Tonja Alejandro PA-C [address] [place] [address] [place] [phone] Polyneuropathy associated with underlying disease (HCC-CMS) (Primary Dx); Osteomyelitis of great toe of left foot (HCC-CMS); 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 (HCC-CMS) Social History Tobacco Use Types Packs/Day [...] as of this encounter Progress Notes * Zak Hall - 04/14/2020 1330 EST Due to computer system disruption, additional clinical information for this visit is Dictated Note. For patients, please refer to guidance in iPerceptions on how to locate information. Generally this information will appear as a scanned documents saved in My Documents activity. * Tonja Alejandro PA-C - 04/14/2020 1330 EST [facility] ADULT PRIMARY CARE DOR[facility] PROGRESS / FOLLOWUP NOTE - 04/14/2020 CONSENT: This is a televideo visit. The patient is at home and provider is in the office. Televideoconsent obtained. Concepts of telemedicine have been described to the patient. The patient has beeninformed of the anticipated benefits and possible risks. The patient understands the information provided regarding telemedicine, has had the opportunity to ask questions about this information and all questions have been answered to the patient's satisfaction. The patient consents for the use of telemedicine and her medical care and authorizes the transmission of any medical information to providers and her staff involved in the patient's medical or mental health care. CHIEF COMPLAINT: Neuropathy pain and tingling in feet. HISTORY OF PRESENT ILLNESS: This is a 35-year-old female with a past medical history of type 2 diabetes, neuropathy and past history of morbid obesity. The patient recently was in the hospital due toosteomyelitis with a diabetic foot infection of her left toe. A bone biopsy was done and cultures grew MSSA, GBS, S. anginosus, prevotella. MRI also confirmed osteomyelitis. The patient was discharged home on IV cefazolin 2 g every 8 hours and metronidazole 500 mg every 8 hours. The patient states that this has actually been going really well. She is supposed to go to infectious disease appointment this Tuesday and she is hoping she can be off of antibiotics by Tuesday. She does have some neuropathy issues that has been going on for some time, but has been increasing since August. She states that the right foot is actually worse. She has constant cramping up, severe pain in the bottom of her feet, numbing and tingling, and then she continues to have some tingling and sharp pain in the left foot. She also has some ankle swelling and bruising as well. She has never been treated for this. She tells me that in the past she was on gabapentin for shingles of the eye and that was not helpfulfor her, although she was on a really low dose at that time. The patient states overall her diabetes has been well controlled. She follows up with Mary Zafar and her fasting sugars have been around 120. Midday sugars have ranged from 117-150. She reports that ever since being home, she has a much easier time controlling her sugars. Past medical history, surgical history, family history, social history, problem list, meds were reviewed. OBJECTIVE: This is a telemedicine visit. ASSESSMENT AND PLAN: 1. Neuropathy. The patient does report a neuropathy in bilateral feet, which is most likely due to type 2 diabetes. At this time, I recommend that she start gabapentin. We discussed the side effects of the medication including drowsiness and sedation; however, we will start the patient at 300 mg at night for 1 week, then increase to 300 mg b.i.d. x1 week and then increase to 300 mg t.i.d. I recommend that she follow up in 6 weeks after this. 2. Type 2 diabetes. I encouraged the patient to continue keeping track of her sugars as she has been doing really well with this. Continue healthy diet and exercise. Continue followup with endocrinology. Followup in 6 weeks. 3. Osteomyelitis -continue antibiotics -follow up with ID I spent a total of 20 minutes on the phone via Zoom with this patient and greater than half that time was spent discussing the clinical objective findings, coordination of care and treatment recommendations that were considered and reviewed above. I was directly supervised by Dr. Flower, who was immediately available during the entire patient encounter. Tonja Alejandro PA-C / DB Dictation ID: [id number] cc: documented in this encounter Plan of Treatment Upcoming Encounters Date Type Department Care Team (Late st Contact Info) Description 02/21/2024 9:45 EDT Office Visit [facility] Adult Primary Care - [address] [phone] Carrington Calderon MD [address] [place] [address] [address] [place] [phone] 02/27/2024 8:30 EDT Telemedicine [facility] Sleep Program - [address] [phone] Rn, Sleep 02/29/2024 10:30 EDT Appointment [facility] Radiology Nuclear Medicine and PET - [address] [phone] 02/29/2024 14:30 EDT Appointment [facility] Radiology Nuclear Medicine and PET - [address] [phone] 03/01/2024 8:00 EDT [facility] Nuclear Medicine and PET - [address] [address] 03/01/2024 9:30 EDT [facility] Rad[facility] Nuclear Medicine and PET - [address] [address] documented as of this encounter Visit Diagnoses Diagnosis Polyneuropathy associated with underlying disease ([facility])- Primary Osteomyelitis of great toe of left foot ([facility]) 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 ([facility]) Type II or unspecified type diabetes mellitus with other specified manifestations, not stated as uncontrolled documented in this encounter
--- OUTSIDE RECORDS SUMMARY | 2023-12-16 00:41 | XMS_ITS | Encounter Summary ---
Author Organization [facility] Address [address] [place] [address] Care Team Providers Care Double Cut Sawyer Name Role Phone Unavailable Primary Care Provider Unavailabl e Reason for Visit * Reason Onset Date Comments Home Health 04/01/2020 Telemedicine Video Visit 04/01/2020 Encounter Details Date Type Department Care Team (Late st Contact Info) Description 04/01/2020 Telephone [facility] Adult Primary Care [address] [phone] Tonja Alejandro PA-C [address] [place] [address] [place] [phone] Home Health; Telemedicine Video Visit Social History Tobacco Use Types Packs/Day Years [...] encounter Miscellaneous Notes * Telephone Encounter - Janette Littlejohn - 04/02/2020 1120 EDT Patient's televideo information sent to patient. Zoom appt ID: [id number] pw: [id number] * Telephone Encounter - Jesi Lua RN - 04/02/2020 1102 EDT Left message for pt that PCP would like to do video visit. No appt's left this week and provider out next week so set her up for video visit on 04/14/20 at 1330. Will have PSS send pt the video link. Advised pt that if she wants to talk to someone sooner then please call us back to change appt. * Telephone Encounter - Tonja Alejandro PA-C - 04/02/2020 1002 EDT Yes, video visit will be great and then we can discuss nerve pain medications. Thanks! * Telephone Encounter - Jesi Lua RN - 04/02/2020 0910 EDT Spoke with pt, she states she has mixed up our phone number since her discharge on 03/12/20. She sawRenataura Ramon DPM on 03/25/20 and pt states she told her to contact PCP to discuss options for her neuropathy in her feet. Lt worse than right, pt describes pain and tingling constantly and it is 6-7 on 0-10 scale. Sometimes worse at night. I suggested a video visit but PCP only has possible slot on 04/07/20. (two 15min slots in afternoon that can be used). Will discuss w/ PCP and get back to pt. She states ok to leave message on voicemail and email address in chart is accurate if we make video visit. * Telephone Encounter - Karen Trujillo - 04/01/2020 1635 EDT Kylah is calling from [facility] to state patient is frustrated because she stated she has been calling our office Regarding her neuropathy pain and would like to speak to someone regarding this. Looks like patient was calling the wrong office for this. documented in this encounter Plan of Treatment Upcoming Encounters Date Type Department Care Team (Late st Contact Info) Description 02/21/2024 9:45 EDT Office Visit [facility] Adult Primary Care - [address] [phone] Carrington Calderon MD 1 [facility] Level [address] [place] [phone] 02/27/2024 8:30 EDT Telemedicine [facility] Sleep Program - [place] [address] [place], [place] [address] Rn, Sleep 02/29/2024 10:30 EDT Appointment [facility] Radiology Nuclear Medicine and PET - [address] [phone] 02/29/2024 14:30 EDT Appointment [facility] Radiology Nuclear Medicine and PET - [address] [phone] 03/01/2024 8:00 EDT Appointment [facility] Radiology Nuclear Medicine and PET - [address] [phone] 03/01/2024 9:30 EDT Appointment [facility] Radiology Nuclear Medicine and PET - [address] [phone] documented as of this encounter Visit Diagnoses Not on filedocumented in this encounter
--- OUTSIDE RECORDS SUMMARY | 2023-12-16 00:41 | XMS_ITS | Encounter Summary ---
Author Organization [facility] Address [address] [place] [address] Care Team Providers Care Edge Stitcher Name Role Phone Unavailable Primary Care Provider Unavailabl e Reason for Visit * Reason Onset Date Comments Home Health 04/01/2020 Encounter Details Date Type Department Care Team (Late st Contact Info) Description 04/01/2020 Telephone [facility] Infectious Disease - [address] [phone] Mushtaq Light, DO [address] [facility], [address] [place] [phone] Home Health Social History Tobacco Use Types [...] encounter Miscellaneous Notes * Telephone Encounter - Smita Green - 04/01/2020 3500 EDT Kylah from [facility] states that she did picc dressing change and clave, but was not able to get the extension tubing off. Would like a call back with plan. [phone]. documented in this encounter Plan of Treatment Upcoming Encounters Date Type Department Care Team (Late st Contact Info) Description 02/21/2024 9:45 EDT Office Visit [facility] Adult Primary Care - [place] [address] [place], [place] [phone] Carrington Calderon MD 1 [facility] Level [address] [place] [phone] 02/27/2024 8:30 EDT Telemedicine [facility] Sleep Program - [place] [address] [place] [phone] Rn, Sleep 02/29/2024 10:30 EDT Appointment [facility] Radiology Nuclear Medicine and PET - [address] [phone] 02/29/2024 14:30 EDT Appointment [facility] Radiology Nuclear Medicine and PET - [address] [phone] 03/01/2024 8:00 EDT Appointment [facility] Radiology Nuclear Medicine and PET - [address] [phone] 03/01/2024 9:30 EDT Appointment [facility] Radiology Nuclear Medicine and PET - [address] [phone] documented as of this encounter Visit Diagnoses Not on filedocumented in this encounter
--- OUTSIDE RECORDS SUMMARY | 2023-12-16 00:42 | XMS_ITS | Encounter Summary ---
Author Organization [facility] Address [address] [place] [address] Care Team Providers Care Smoke Jumper Name Role Phone Unavailable Primary Care Provider Unavailabl e Encounter Details Date Type Department Care Team (Late st Contact Info) Description 03/18/2020 Orders Only [facility] Endocrinology - [facility] [address] [place] [address] Sara Zafar, GUSTAVO [address] [facility] [address] [place] [phone] Type 2 diabetes mellitus with hyperglycemia, with long-term current use of insulin ([facility]) (Primary Dx) Social History Tobacco Use [...] No 03/06/2020 Cognitive Status Response Date of Assess ent Because of a physical, menta l, or emotional condition, do you have serious difficulty concentrating, remembering, or making decisions? (5 years old or older) No 03/06/2020 documented as of this encounter Plan of Treatment Upcoming Encounters Date Type Department Care Team (Late st Contact Info) Description 02/21/2024 9:45 EDT Office Visit [facility] Adult Primary Care - [address] [phone] Carrington Calderon MD [address] [place] [address] 1 [place] [phone] 02/27/2024 8:30 EDT Telemedicine [facility] Sleep Program - [address] [phone] Rn, Sleep 02/29/2024 10:30 EDT Appointment [facility] Radiology Nuclear Medicine and PET - [address] [phone] 02/29/2024 14:30 EDT Appointment [facility] Radiology Nuclear Medicine and PET - [address] [address] 03/01/2024 8:00 EDT Appointment [facility] Radiology Nuclear Medicine and PET [address] [address] 03/01/2024 9:30 EDT Appointment [facility] Radiology Nuclear Medicine and PET [address] [address] documented as of this encounter Visit Diagnoses Diagnosis Type 2 diabetes mellitus with hyperglycemia, with long-term current use of insulin ([facility])- Primary documented in this encounter
--- OUTSIDE RECORDS SUMMARY | 2023-12-16 00:42 | XMS_ITS | Encounter Summary ---
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 Role Phone Unavailable Primary Care Provider Unavailabl e Reason for Referral * Laboratory Services (Routine/Next Available) - New Request Specialty Diagnoses / Procedures Referred By Contac t Referred To Contact Diagnoses Diabetic foot ulcer ([facility]) Procedures C REACTIVE PROTEIN Mushtaq Light DO [address] [phone] Referral ID Status Reason Start Date Expiration Date V isits Requested Visits Authorized [id number] New Request 03/12/2020 1 1 * Laboratory Services (Routine/Next Available) - New Request Specialty Diagnoses / Procedures Referred By Contac t Referred To Contact Diagnoses Diabetic foot ulcer ([facility]) Procedures SED. RATE:Mushtaq Peoples DO [address] [phone] Referral ID Status Reason Start Date Expiration Date V isits Requested Visits Authorized [id number] New Request 03/12/2020 1 1 * Laboratory Services (Routine/Next Available) - New Request Specialty Diagnoses / Procedures Referred By Contac t Referred To Contact Diagnoses Diabetic foot ulcer ([facility]) Procedures CREATININE Mushtaq Light DO [address] [address] Referral ID Status Reason Start Date Expiration Date V isits Requested Visits Authorized [id number] New Request 03/12/2020 1 1 * Laboratory Services (Routine/Next Available) - New Request Specialty Diagnoses / Procedures Referred By Kit goode Referred To Contact Diagnoses Diabetic foot ulcer ([facility]) Procedures COMPLETE BLOOD COUNT AND DIFFERENTIAL Mushtaq Light DO [address] [address] Referral ID Status Reason Start Date Expiration Date V isits Requested Visits Authorized [id number] New Request 03/12/2020 1 1 * Follow Up (Routine/Next Available) - Receiving Office to Obtain Authorization Specialty Diagnoses / Procedures Referred By Kit goode Referred To Contact Podiatry Diagnoses Diabetic foot ulcer ([facility]) Carrington Mari MD [address] [place] [address] [facility] Podiatry [address] [place] [address] Referral ID Status Reason Start Date Expiration Date Visits Requested Visits Authorized [id number] Receiving Office to Obtain Authorization Specialty Services Required 0 1 1 Question Answer Reason for Request: follow up with Dr. Navarro for diabetic great toe ulcer Reason for Visit * Reason Comments Toe Pain pt arrives with infe ction to L big toe. describes it as a hole with serosanguinous drainage. hx DM. denies fevers at home. endorses vomiting and some chills today at work. see tcall. tachycardic. afebrile. * Auth/Cert Specialty Diagnoses / Procedures Referred By Kit t Referred To Contact Diagnoses Diabetic foot ulcer (HCC-CMS) Diabetic foot infection (HCC-CMS) Diabetic foot ulcer associated with diabetes mellitus due to underlying condition, unspecified laterality, unspecified part of foot, unspecified ulcer stage ([facility]) Referral ID Status Reason Start Date Expiration Date Visits Re quested Visits Authorized [id number] 1 1 Encounter Details Date Type Department Care Team (Late st Contact Info) Description 03/06/2020 18:11 EDT - 03/12/2020 12:07 EDT Hospital Encounter [place] [id number] General Medicine Telemetry Unit [address] [place] [address] [id number] Siobhan Hare PA-C [address] [place] [phone] Elise Charles MD [address] [place] [phone] Carrington Padilla MD [address] [place] [phone] Cal Jenkins MBBS [address] [place] [phone] Nate Henderson MD [address] [place] [phone] Diabetic foot ulcer ([facility]) (Primary Dx); Diabetic foot infection (HCC-CMS); Osteomyelitis of great toe of left foot (HCC-CMS); 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, 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 ([facility]) Discharge Disposition: Home-Health Care Svc Social History [...] 18:09 EDT documented as of this encounter Last Filed Vital Signs Vital Sign Reading Time Taken Comments Blood Pressure 128/60 03/12/2020 1001 EDT Pulse 88 03/11/20202034 EDT Temperature 35.6 ??C (96.1 ??F) 03/12/2020 1001 EDT Respiratory Rate 17 03/12/2020 1001 EDT Oxygen Saturation 97% 03/12/2020 1001 EDT Inhaled Oxygen Concentration - - Weight 98.1 kg (216 lb 3.2 oz) 03/10/2020 0532 E DT Height 162.6 cm (5' 4) 03/06/2020 1808 EDT Body Mass Index 37.11 03/06/2020 1808 EDT documented in this encounter Functional Status [...] No 03/06/2020 documented as of this encounter Discharge Summaries * Nate Henderson MD - 03/12/2020 1000 EDT Images from the original note were not included. Medicine Discharge Summary Primary Care Provider: Tonja Alejandro Attending Physician: Nate Henderson MD Admit Date: 03/06/2020 Discharge Date: 03/12/20 Disposition: Home with home health Reason for Admission: Foot ulcer Principal/Final Diagnosis: Osteomyelitis of great toe of left foot ([facility]) Additional Problems Managed in the Hospital Active Hospital Problems Diagnosis Date Noted ??? *Osteomyelitis of great toe of left foot ([facility]) 03/12/2020 ??? Diabetic foot ulcer ([facility]) 03/06/2020 Resolved Hospital Problems No resolved problems to display. Principal Procedure: 03/07/20 Non-excisional debridement of left great toe ulcer Hospital Course: 34 y.o. female with a PMHx including poorly controlled type 2 diabetes c/b neuropathy (Hgb A1c 11/23), past history morbid obesity (weighed >500lb 2010, improved with lifestyle changes), tobaccouse disorder presenting after failed outpatient antibiotic treatment of diabetic foot infection. The patient had a known left great toe ulcer for about three months and had previously been seen by podiatry. In November an MRI was performed and did not show osteomyelitis. The patient presented to the EDas the foot had become red, swollen, and painful and this was ascending into the leg. Orthopedics and ID were consulted. A bone biopsy was performed. Cultures grew staph aureus, strep agalactiae, strep anginosus, and prevotella. MRI confirmed osteomyelitis without any fluid collections. The plan ismedical management with six weeks of antibiotics. The patient is discharged on IV Cefazolin 2gm q8hand Metronidazole 500mg q8h. The patient is to perform dressing changes to the ulcer daily. She will follow-up with podiatry about two weeks after discharge. The patient is to be limited weight bearing in a surgical shoe and remain out of work. Condition at Discharge: Stable Clinical Issues Needing Follow-up: -follow for adverse effects from cefazolin and metronidazole -attention to good glucose management and follow-up with endocrinology Allergies Allergen Reactions ??? Citalopram Other (See Comments) suicidal ideation, approx 2012 ??? Other - See Comments Swelling of throat pomergrante ??? Advil [Ibuprofen] Hives Immunization History Administered Date(s) Administered ??? Rho(D) Immune Globulin IM 10/26/2018, 10/03/2019 ? ? Tdap Vaccine =>7YO IM 06/06/2016 Results Pending at Discharge Test results still pending from this admission Procedure Component Value Units Date/Time Anaerobe Culture/Smear (inc. aerobes), Other [[id number]] (Abnormal) (Susceptibility) Collected: 03/07/20 1421 Lab Status: Preliminary result Specimen: Bone from Toe Updated: 03/10/20 1751 Organism ID Few Staphylococcus aureus Few Streptococcus agalactiae Few Streptococcus anginosus Moderate Prevotella bivia Smear Few Neutrophils Present Few Gram Positive Cocci Upcoming Appointments 2020 9:30 Office Visit with Elza Navarro DPM [facility] - [place] (--) [address] [facility] [phone] 2020 13:00 Televideo Short with Tonja Plascencia APRN [facility] Infectious Disease [facility] (--) [address] [facility] [address] Mar 27, 2020 13:30 Televideo Short with Tonja Plascencia [facility] Infectious Disease [facility] (--) [address] [address] Apr 03, 2020 13:30 Televideo Short with Tonja Plascencia [facility] Infectious Disease [facility] (--) [address] [address] Apr 10, 2020 13:30 Televideo Short with Tonja Plascencia APRN [facility] Infectious Disease [facility] (--) [address] [address] Apr 16, 2020 9:30 Televideo Short with Mushtaq Light DO [facility] Infectious Disease [facility] (--) [address] [phone] Discharge Handoff Communication Following information conveyed to Eulalia at office of Tonja Alejandro, by Jarrett Gutierrez PA-C: ?? Reason for admission and final diagnosis ?? Medication changes ?? Appointments and tests needed after discharge (includes repeat studies and at what interval) ?? Tests (laboratory, pathology, etc.) pending at discharge ?? Anticoagulation plan if applicable (including medications and next blood draw) Discharge Summary Completed By: Jarrett Gutierrez PA-C ATTENDING ATTESTATION: Patient was seen and examined on the day of discharge. I personally reviewed the hospital course and diagnostic testing. I discussed the case with the resident/SANDIP. I agree with and edited (in blue) the findings and plan of care as documented in the note above. Plans at the time of discharge were discussed with the patient and will be forwarded to their PCP. Any questions were answered and there were no barriers to care. I personally spent a total of 20 minutes on this discharge and in the care of this patient today with >50% on the unit in counseling and coordinating care as described above. Nate Henderson MD Internal Medicine Hospitalist 03/12/2020 12:32 documented in this encounter Medications at Time of Discharge Medication Sig Dispensed Refills Start Date End Date blood glucose meter One Touch Verio Flex meter. 1 Each 10/04/2019 12/21/2021 blood glucose test strips One Touch Verio IQ or other brand compatible with meter and covered by patient's insurance. Testing QID. 100 Each 5 10/01/2019 08/11/2020 ceFAZolin 2,000 mg in sodium chloride 0.9 % 50 mL Inject 2,000 mg into the vein every 8 hours for 40 days. Or continue until follow-up appointment with ID. Compound in patient ready to use form. Pharmacy may adjust diluent and/or volume. 0 03/12/2020 0 diphenhydrAMINE (BENADRYL) 50 mg capsule Take 1 Cap by mouth as needed for up to 1 dose (hives). 2 Cap 03/12/2020 05/12/2020 insulin aspart U-100 (NOVOLOG FLEXPEN) 100 unit/mL (3 mL) injectable penIndications:type 2 diabetes mellitus,as needed with meals. Inject 4-6 Units into the skin 3 times daily with meals. 03/21/2020 insulin glargine (LANTUS SOLOSTAR) 100 unit/mL (3 mL) injection pen Inject 30 Units into the skin at bedtime for 90 days. 27 mL 3 12/04/2019 12/21/2021 IV Infusion Pump Accessory infusion set Use as directed. Order includes administration supplies and pump (if required), and catheter care supplies for home IV therapy. 0 03/11/2020 04/20/2020 lancets One Touch Delica or other brand compatible with lancing device and covered by patient's insurance. 100 Each 5 10/01/2019 10/01/2020 metroNIDAZOLE (FLAGYL) 500 mg tablet Take 1 Tab by mouth every 8 hours for 42 days. 126 Tab 03/12/2020 04/23/2020 sodium chloride 0.9 %, flush, flush syringe [...] 03/12/2020 05/12/2020 documented as of this encounter Ordered Prescriptions Prescription Sig Dispensed Refills Start Date End Da te metroNIDAZOLE (FLAGYL) 500 mg tablet Take 1 Tab by mouth every 8 hours for 42 days. 126 Tab 03/12/2020 04/23/2020 ceFAZolin 2,000 mg in sodium chloride 0.9 % 50 mL Inject 2,000 mg into the vein every 8 hours for 40 days. Or continue until follow-up appointment with ID. Compound in patient ready to use form. Pharmacy may adjust diluent and/or volume. 0 03/12/2020 04/21/2020 sodium chloride 0.9 %, flush, flush syringe For valved catheters (Groshong, Vaxcel, Solo PICC, Mid-line, and Groshong Chest Port): Flush all lumens with 10 mL every week if not in use. Flush 10 mL before and 10 mL after each medication dose (20 mL after vancomycin doses). Flush with 20 mL after blood draws. Dispense quantity sufficient. 1 Box 03/12/2020 05/12/2020 diphenhydrAMINE (BENADRYL) 50 mg capsule Take 1 Cap by mouth as needed for up to 1 dose (hives). 2 Cap 03/12/2020 05/12/2020 IV Infusion Pump Accessory infusion set Use as directed. Order includes administration supplies and pump (if required), and catheter care supplies for home IV therapy. 0 03/11/2020 04/20/2020 documented in this encounter Discharge Disposition Disposition Code Departure Means Destination Home-Health Care [facility] documented in this encounter Progress Notes * Nate Henderson MD - 03/11/2020 9840 EDT Medicine Progress Note Admit Date: 03/06/2020 18:11 Date of Service: 03/11/2020 Reason for Admit/CC: Foot pain and ulceration 24 Hour Events/Subjective: No new adverse events. Patient reports that she is feeling much better. She feels decreased pain inthe foot. She denies fever, chills, nausea, vomiting, diarrhea, rash. Review of Systems: A ten point review of systems was performed and was negative except for pertinent positives noted in the HPI Medications: Reviewed and documented in the medical record: No changes Objective: VS: Temp: [35.8 ??C (96.4 ??F)-36.5 ??C (97.7 ??F)] , Pulse: --, Resp: [15-18] , BP: (105-135)/(69-77) , SpO2: [97 %-99 %] Physical Exam: General appearance: alert, cooperative, no distress Skin: Foot dressing clean and dry, did not open that this encounter, no other rash noted Lungs: clear to auscultation bilaterally Heart: regular rate and rhythm, S1, S2 normal, no murmur, click, rub or gallop Abdomen: soft, non-tender; bowel sounds normal; no masses, no organomegaly Labs: Reviewed: No significant findings. Micro: Reviewed New Imaging: Results notable for MRI foot with osteomyelitis of the first distal phalanx and no fluid collection. Assessment/Plan: 34 y.o.??female??with a PMHx significant for??poorly controlled type 2 diabetes c/b neuropathy and foot ulcer,??prior??morbid obesity, and??tobacco use disorder who??presented to the ED for worseningtoe pain and swelling. 1. Osteomyelitis of the left first distal phalanx -Imaging with MRI confirmed osteomyelitis and did not show any drainable fluid collection -ID and ortho/podiatry have been consulted--plan for medical management with six weeks of IV ABX--plan for Cefazolin 2gm q8h plus oral metronidazole -Place PICC today -Final cultures with staph aureus, strep agalactiae, strep anginosus, and prevotella -Hopeful for discharge to home tomorrow if teaching can be done and ABX approved for home 2. Uncontrolled insulin-dependent diabetes mellitus -Most recent globin A1c is 10 -Currently on Lantus 30 units at bedtime plus aspart 9 units with meals plus sliding scale -Glucose values here consistently under 200 VTE Prophylaxis: Pharmacologic Prophylaxis: Enoxaparin (Lovenox) 40 mg SQ daily Disposition: Home with home health Diet: Diabetic Code Status: Full Code Jarrett Gutierrez PA-C Attending physician Nate Henderson MD was on site and available for consultation. Attending Physician Kian I did not see the patient on the day of service but I was present and available to discuss the patient's care with the physician credit assistant. Nate Henderson MD 03/24/2020 12:46 * Elza Navarro DPM - 03/11/2020 0737 EDT S: Saw Ms. Luo at bedside this am. Resting comfortably. Reports feeling much better since being in the hospital. Swelling to left foot and leg much improved- still with some mild swelling in the toe. Currently denies pain in the toe. Denies nausea, vomiting, fever, chills. Vitals: 03/10/20 0532 03/10/20 1339 03/10/20 2123 03/11/20 0730 BP: 105/59 105/69 134/69 105/69 BP Cuff Location: Left arm Right arm Right arm Right arm BP Patient Position: Semi fowlers Semi fowlers Semi fowlers Semi fowlers Resp: 16 18 Temp: 37.1 ??C (98.8 ??F) 36.7 ??C (98.1 ??F) 36.1 ??C (97 ??F) 35.8 ??C (96.4 ??F) TempSrc: Tympanic Tympanic Tympanic Tympanic SpO2: 97% 97% 99% 99% Weight: 98.1 kg (216 lb 3.2 oz) Height: Objective: General: AO x 3, NAD Lower Extremity Problem Focused Exam: LLE: Palpable pedal pulses. Skin temperature gradient WNL. CFT < 3 sec to all toes. Ulcer plantar left great toe. (+) probe to bone. Probes proximally ~ 4 mm. Scant purulent drainage from proximalaspect. No fluctuance. No malodor. Wound base granular. No necrosis. Mild edema to the great toe. No pain with ROM 1st MTPJ. Weakness with plantarflexion of the great toe. Protective sensation intact but diminished to toes. Labs: Lab Results Component Value Date WBC 12.33 03/10/2020 HGB 14.1 03/10/2020 HCT 41.4 03/10/2020 MCV 90 03/10/2020 PLT 424 (H) 03/10/2020 Lab Results Component Value Date SEDRATE 25 (H) 03/06/2020 Lab Results Component Value Date CRP 27.7 (H) 03/06/2020 Imaging/Micro/Path: Left great toe bone culture 03/07: MSSA, strep agalactiae, strep anginosus, prevotella biva Blood cx 03/04: No growth X-ray foot 03/07: No radiographic evidence of osteomyelitis; no soft tissue emphysema MRI foot 03/09: Osteomyelitis distal phalanx, possible proximal phalanx head; rupture of the FHL tendon; no abscess Assessment/Plan: 34 yo female with poorly controlled DM with neuropathy, obesity, with chronic left great toe ulcer now with osteomyelitis. -Reviewed MRI with Ms. Luo, as above. -Reviewed cultures. -Reviewed treatment options for osteomyelitis- antibiotics vs amputation. Do think this has a good chance of healing with antibiotics, wound care, offloading and she would like to pursue this. -Antibiotics per ID recs. -Limited weight bearing to left foot in surgical shoe (has at bedside). -Continue elevation of left leg. -Will need VNA for dressing changes on discharge: Please change dressing daily. Pack wound with 1/4in plain packing- wound probes proximally. Apply DSD, kerlix, light RENAN bandage. -Will need follow up with me within 2 weeks of discharge- will arrange. -Will need note for work- out of work for 6 weeks, to be reassessed at outpatient follow up visits with me. -Please page with any questions. * Nate Henderson MD - 03/10/2020 4865 EDT Medicine Progress Note Admit Date: 03/06/2020 18:11 Date of Service: 03/10/2020 Reason for Admit/CC: Foot pain and ulceration 24 Hour Events/Subjective: No new adverse events. Patient reports that she is feeling much better. She feels decreased pain inthe foot. She denies fever, chills, nausea, vomiting, diarrhea, rash. Review of Systems: A ten point review of systems was performed and was negative except for pertinent positives noted in the HPI Medications: Reviewed and documented in the medical record: No changes Objective: VS: Temp: [36.7 ??C (98.1 ??F)-37.1 ??C (98.8 ??F)] , Pulse: --, Resp: [16-18] , BP: (105-110)/(59-71) , SpO2: [97 %-100 %] Physical Exam: General appearance: alert, cooperative, no distress Skin: Foot dressing clean and dry, did not open that this encounter, no other rash noted Lungs: clear to auscultation bilaterally Heart: regular rate and rhythm, S1, S2 normal, no murmur, click, rub or gallop Abdomen: soft, non-tender; bowel sounds normal; no masses, no organomegaly Labs: Reviewed: No significant findings. Micro: Reviewed New Imaging: Results notable for MRI foot with osteomyelitis of the first distal phalanx and no fluid collection. Assessment/Plan: 34 y.o.??female??with a PMHx significant for??poorly controlled type 2 diabetes c/b neuropathy and foot ulcer,??prior??morbid obesity, and??tobacco use disorder who??presented to the ED for worseningtoe pain and swelling. 1. Osteomyelitis of the left first distal phalanx -Imaging with MRI confirmed osteomyelitis and did not show any drainable fluid collection -Continue cefazolin as well as oral metronidazole -Follow-up final cultures -We will discuss further with ID to coordinate final discharge planning which will likely be placement of a PICC line and extended course of IV antibiotics at home--discussed with case management today to begin preparing this process 2. Uncontrolled insulin-dependent diabetes mellitus -Most recent globin A1c is 10 -Currently on Lantus 30 units at bedtime plus aspart 9 units with meals -Glucose values here consistently under 200 VTE Prophylaxis: Pharmacologic Prophylaxis: Enoxaparin (Lovenox) 40 mg SQ daily Disposition: Home with home health Diet: Diabetic Code Status: Full Code Jarrett Gutierrez PA-C Attending physician Nate Henderson MD was on site and available for consultation. Attending Physician Kian I did not see the patient on the day of service but I was present and available to discuss the patient's care with the physician credit assistant. Nate Henderson MD 03/24/2020 12:48 * Ranulfo Valverde RN - 03/10/2020 6770 EDT Patient for home on IV antibiotic for a long course. Had discussed this with the pt and her spouse as a possibility last week. As of this time the pt isstill in agreement with home IV medication. She has chosen the [facility] and I have called to the Liaison for the [facility] to give a heads up as they will come into the home for reinforcement of teaching of self administration and will also change the dressing on the PICC line as per their agency protocol. Call to the [facility] and they have confirmed that the pt has 100% coverage from Medicaid. No prior auth needed. Awaiting PICC placement and initial infusion of medication and teaching from [facility] once the pt is ready to go back to home. Case Management will follow to transition. Ranulfo Valverde RN [facility] 0430 * Taj Paolmares MD - 03/10/2020 0203 EDT Orthopedic Surgery Progress Note Diagnosis: Left great toe diabetic foot wound Procedure: Bedside debridement on 03/07/2020 24hr: DARIUS Subjective: Doing well today. Pain is significantly decreased, as has the swelling. Noticed that it looks much better too. Able to ambulate with heel weight bearing. Objective: Temp: [36.5 ??C (97.7 ??F)-37 ??C (98.6 ??F)] , Pulse: --, Resp: [16-17] , BP: (109-120)/(66-74) , SpO2: [98 %-100 %] Focused MSK: LLE Inspection: Skin without erythema, bullae, rashes, ecchymoses Vascular: 2+ distal pulses, Cap Refill <2 sec, Warm Sensation: Intact in Sural, Tibial, Sup & Deep Peroneal, Saphenous distributions Wound: Dressing over left big toe plantar surface with minimal drainage. Wound base is clean without purulence. Motor: 5/5 GSC/TA/EHL/FHL; 5 quad/ham/IP Labs: WBC/Hgb/Hct/Plts: 11.24/13.2/37.9/406 (03/08 720) Na/K/Cl/CO2: 139/4.6/105/25 (03/08 720) BUN/Cr/glu/ALT/AST/amyl/lip: --/0.42/--/--/--/--/-- (03/08 720) Assessment: Cristy Luo is a 34 y.o. female with a history of type 2 diabetes (hemoglobin A1c 10.4), neuropathy, obesity, tobacco use who presents with a diabetic foot wound over the plantar aspect of the great toe that probes to bone distally. The wound was debrided at bedside with bone cultures sent for analysis on 03/07/2020. No further orthopedic intervention is planned at this time Plan: ?? No further orthopedic intervention at this time ?? Agree with multimodal pain control ?? Recommended dressing changes: Daily with 4 x 4's and Kerlix ?? Weight Bearing: Nonweightbearing left lower extremity with Darco shoe otherwise activity as tolerated ?? Follow-up final cultures ?? Antibiotics: Agree with continuing antibiotics ?? Follow-up in orthopedic podiatry clinic. We will place referral ?? Remainder of care per primary team This patient will be signed out to the orthopaedics foot and ankle service for the above injuries. Please contact the resident on that service for further questions. TAJ PALOMARES MD * Stacie Salazar RN - 03/10/2020 0136 EDT Data: Client is A&Ox3. VSS. Client denies pain. Darco boot in place. Dressing clean, dry, and intact. New skin tear to right foot covered with mepilex. No drainage noted. HS BG 150. Action: Meds per order, clustered care, hourly rounding. Response: Client resting comfrotably with no complaints. Call calloway in reach. STACIE SALAZAR RN 03/10/2020 1:36 * Valencia Antunez - 03/09/2020 0926 EDT Medicine Progress Note Service Date: 03/09/2020 Admit Date: 03/06/2020 18:11 Reason for Admission: 34 y.o. female admitted with a chief complaint of left great toe pain and swelling and now with a principal diagnosis of diabetic foot ulcer. 24 Hour Events: No new events Subjective/Objective Subjective Patient is feeling well today and is anxious to be home. She notes many home stresses including a court date on Tuesday regarding adopting two of the children she cares for at home. She slept well and otherwise has no complaints. She is moving her bowels and urinating well. She states her pain and swelling continue to improve. She denies nausea, vomiting, fever, chills, chest pain, or SOB. Review of Systems A ten point review of systems was performed and was negative except for pertinent positives noted in the HPI Objective Vital Signs Temp: [35.2 ??C (95.4 ??F)-37 ??C (98.6 ??F)] , Heart Rate: [72 BPM-87 BPM] , Resp: [18] , BP: (108-136)/(66-72) , SpO2: [98 %-100 %] Physical Exam General appearance: alert, cooperative, no distress Head: Normocephalic, without obvious abnormality, atraumatic Eyes: conjunctivae/corneas clear. PERRL, EOM's intact. Neck: supple, symmetrical, trachea midline and no JVD Lungs: clear to auscultation bilaterally, non labored breathing Heart: regular rate and rhythm, S1, S2 normal, no murmur, click, rub or gallop Abdomen: soft, non-tender; bowel sounds normal; no masses, no organomegaly Extremities: all extremities warm and well perfused. Left LE mildly edematous. Dressing present from ankle distally and hard sole shoe present. Pulses: 2+ and symmetric UE and LE. Skin: Skin color, temperature, turgor normal. No rashes or lesions Is PICC or central line present? No, PICC/Central line not present. Medications Reviewed: Changes notable for stopped vanco. Changed flagyl to 500 mg PO BID. Started cefazolin 2g q8h Labs Reviewed: No new labs. Results: Anaerobe Culture/Smear (inc. aerobes), Other (Order [id number]) Abnormal Status: Preliminary result (Collected: 03/07/2020 14:21) Specimen Information: Toe; Bone Organism ID Few Staphylococcus aureus Abnormal Susceptible to nafcillin, cephalosporins and other beta lactam antibiotics (mecA gene product absent). Few Streptococcus agalactiae Abnormal Penicillin and ampicillin are drugs of choice for treatment of beta hemolytic streptococcal infections. Smear Abnormal Few Neutrophils Present Few Gram Positive Cocci Imaging Reviewed: No new imaging. Assessment/Plan Assessment Cristy Luo is a 34 y.o. female with a PMHx significant for poorly controlled type 2 diabetesc/b neuropathy and foot ulcer, prior morbid obesity, and tobacco use disorder who presented to the ED for worsening toe pain and swelling. Patient was initially seen in the ED on 03/04 and failed outpatient treatment with Augmentin and Bactrim. Patient presented afebrile, tachycardic, and hypertensive. The ulcer initially did not appear to probe to bone however ortho was able to debride callous and probe to bone to obtain biopsy. Patient remains afebrile, is now normotensive, with an improved WBC of 11.24. Remains on metronidazole 500mg IV q8h, now with cefazolin 2g q8h with culture results pos itive for s. aureus and s. agalactiae. Although looking clinically improved, purulent material is expressed with palpation proximal to ulcer and continues to drain from the wound. MRI of foot to assess for deeper infection or joint space involvement, awaiting results. Plan # Diabetic left foot ulcer with evidence of infection: left great toe, probes to bone. Xray does not demonstrate bony involvement. Blood culture drawn last ED visit 03/04 pending. - Culture positive for MSSA and beta strep - ID following, recommends PICC with IV cefazolin 2g q8h, transition to PO metronidazole, MRI of foot - Discontinue vancomycin - Transition from IV to PO metronidazole 500mg BID - Add cefazolin 2g q8h - f/u blood culture 03/04, NGTD - repeat blood cultures if patient becomes febrile - Ortho recs NWB, AAT - tylenol PRN - Zofran PRN - f/u with Dr. Navarro on discharge, referral placed by ortho # Diabetes mellitus type II - Continue decreased home lantus of 30U at bedtime - Continue decreased home novolog of 9U TID with meals - Sliding scale insulin - Consistent carb diet - Hgb A1c 10.4, fructosamine 360 (orded as outpatient by Endocrinology) # Thrombocytosis - First noted 10/2019 with the emergence of her foot ulcer so likely related - Stable # Tobacco dependence - encourage abstinence - NRT VTE Prophylaxis Pharmacologic Prophylaxis: Enoxaparin (Lovenox) 40 mg SQ daily Discharge Plan Home or self care Consults Infectious Disease VALENCIA ROSE 03/09/2020 9:27 Associated attestation - Adair Martinez PA-C - 03/09/2020 1843 EDT I attest that I have reviewed the student note and that the components of the history of the present illness, the physical exam, and the assessment and plan documented were performed by me or were performed in my presence by the student and verified by me. In short, this is a 34 y.o. female with PMHx of uncontrolled T2DM complicated by peripheral neuropathy and foot ulcer, morbid obesity, tobacco use disorder who presents with worsening left great toe infection while on oral antibiotics. Orthopedics obtained bone biopsy and edema appeared to improve on IV vanco and flagyl. Culture with gram + cocci suggesting osteomyelitis. In spite of apparent clinical stability, ID noted ongoing purulent drainage concerning for possible extension of infection thus MRI of left foot warranted to guide therapy. In the mean time, antiinfective adjusted to cefazolin and PO flagyl per recommendations. * Dian Leonard RN - 03/09/2020 0011 EDT Data: A&OX4, denies pain but states having neuropathy in BLLE. Dressing to foot and big toe CDI, VSWNL Action: medicated per AUG. Pt showered, IV and foot wrapped and foot outside shower. Hourly safety checks. Response: Tolerated IV abx well. Stated eagerness to return home. Slept through shift in between care. DIAN LEONARD RN 03/09/2020 0:12 * Cal Jenkins MBBS - 03/08/2020 0933 EDT Medicine Progress Note Service Date: 03/08/2020 Admit Date: 03/06/2020 18:11 Reason for Admission: 34 y.o. female admitted with a chief complaint of left great toe pain and swelling and now with a principal diagnosis of diabetic foot ulcer. 24 Hour Events: Bone culture prelim results of few gram + cocci Subjective/Objective Subjective Patient feels that her condition has tremendously improved and she is feeling well. She reports nearly absent pain in the left lower leg and ankle. Persistent pain is localized to the left great toe, 7/10 in severity. She feels that her swelling has significantly decreased. She denies fever, chills, nausea, vomiting, chest pain, SOB. Review of Systems A ten point review of systems was performed and was negative except for pertinent positives noted in the HPI Objective Vital Signs Temp: [36.1 ??C (97 ??F)-36.4 ??C (97.5 ??F)] , Heart Rate: [81 BPM-84 BPM] , Resp: [18-20] , BP: (108-116)/(63-66) , SpO2: [98 %-100 %] Physical Exam General appearance: alert, cooperative, no distress Head: Normocephalic, without obvious abnormality, atraumatic Eyes: conjunctivae/corneas clear. PERRL, EOM's intact. Neck: supple, symmetrical, trachea midline and no JVD Lungs: clear to auscultation bilaterally, non labored breathing Heart: regular rate and rhythm, S1, S2 normal, no murmur, click, rub or gallop Abdomen: soft, non-tender; bowel sounds normal; no masses, no organomegaly Extremities: all extremities warm and well perfused. Left LE mildly edematous. Dressing present from ankle distally. Pulses: 2+ and symmetric UE and LE Skin: Skin color, temperature, turgor normal. No rashes or lesions Is PICC or central line present? No, PICC/Central line not present. Medications Reviewed: No changes Labs Reviewed: Results notable for Platelet 406, Cr 0.42.. 03/07 Bone culture: few gram positive cocci Imaging Reviewed: No new imaging. Assessment/Plan Assessment Cristy Luo is a 34 y.o. female with a PMHx significant for poorly controlled type 2 diabetesc/b neuropathy and foot ulcer, prior morbid obesity, and tobacco use disorder who presented to the ED for worsening toe pain and swelling. Patient was initially seen in the ED on 03/04 and failed outpatient treatment with Augmentin and Bactrim. Patient presented afebrile, tachycardic, and hypertensive. The ulcer initially did not appear to probe to bone however ortho was able to debride callous and probe to bone to obtain biopsy. Patient remains afebrile, is now normotensive, with an improved WBC of 11.24. Remains on vancomycin 1.5g IV q8h and metronidazole 500mg IV q8h. Plan # Diabetic left foot ulcer with evidence of infection: left great toe, did not probe to bone in ED.Xray does not demonstrate bony involvement. Blood culture drawn last ED visit 03/04 pending. - continue vancomycin and metronidazole IV - f/u blood culture 03/04, NGTD - Repeat blood cultures if patient becomes febrile - Ortho recs NWB, AAT and continue current abx, did not recommend MR foot - ID consult recs awaiting final culture results to tailor abx regimen, continue current empiric regimen - tylenol PRN - Zofran PRN - avoid NSAIDs while on vanco # Diabetes mellitus type II - Continue decreased home lantus of 30U at bedtime - Continue decreased home novolog of 9U TID with meals - Sliding scale insulin - Consistent carb diet - Hgb A1c 10.4, f/u fructosamine results (orded as outpatient by Endocrinology) # Thrombocytosis - First noted 10/2019 with the emergence of her foot ulcer so presume related to that. - stable # Tobacco dependence - encourage abstinence - NRT VTE Prophylaxis Pharmacologic Prophylaxis: Enoxaparin (Lovenox) 40 mg SQ daily Discharge Plan Home or self care Consults Infectious Disease VALENCIA ROSE 03/08/2020 9:34 * Carrington Mari MD - 03/08/2020 0927 EDT Orthopaedic Progress Note for 03/08/20 Pt Name: Cristy Luo Problem: left great toe diabetic foot wound 24 Hr Admitted IV vanc Debrided. Bone culture collected with few gram + cocci S- Doing better this morning. Says the swelling has improved. Her pain has also improved. Denies chestpain or shortness of breath O: Blood pressure 108/63, temperature 36.1 ??C (97 ??F), temperature source Tympanic, resp. rate 18, height 162.6 cm (64), weight 93 kg (205 lb 0.4 oz), SpO2 100 %. Gen: NAD Cards: RR as judged by dp pulse Pulm: Non-labored breathing Focused MSK: LLE Ulceration present on the dorsal great toe diminished sensation over the plantar foot otherwise SILT dp/sp/s/s/t FHL strength improved to 4/5. 5/5 TA, GSC, EHL +2dp/pt Labs: WBC/Hgb/Hct/Plts: 11.29/13.0/37.2/387 (03/07 702) Na/K/Cl/CO2: 138/4.2/103/27 (03/07 702) BUN/Cr/glu/ALT/AST/amyl/lip: 10/0.44/--/--/--/--/-- (03/07 702) A: Cristy Luo is a 34 y.o. who is here for a diabetic foot wound on her great toe. Bone cultures positive for gram positive cocci. She is on vanco and improving clinically. Agree with plan for continued management of osteomyelitics of the great toe P: - WB: NWB LLE. AAT - Pain control: multimodal - Aggressive IS - Diet: okay from ortho perspective - Abx: vancomycin - PT - Dvt ppx: ambulate, scd - Dispo per primary - plan to follow up as outpatient with Dr. Navarro. A referral has been placed Carrington Mari MD 7:57 03/08/2020 I am post-call today and will not be able to answer calls. Please direct calls to orthopaedics supervisor ordnance truck installation resident for further questions. * Aliya Santizo, [facility] - 03/07/2020 4200 EDT Pharmacy Note: Vancomycin Monitoring Cristy Luo is a 34 y.o. female receiving Vancomycin 1500 mg IV q8h for the treatment of diabetic foot infection. Other antibiotics include: metronidazole 500 mg IV q8h. 24 hour vitals and labs: Temp (24hrs), Av.3 ??C (97.4 ??F), Min:36 ??C (96.8 ??F), Max:36.7 ??C (98.1 ??F) Recent Labs 03/06/20 1926 03/07/20 0702 CREATININE 0.49* 0.44* BUN 13 10 Vancomycin steady state trough concentration drawn on 03/07 @ 2129 = 13 mcg/ml. Assessment and Plan: 1). Vancomycin trough concentration is within the goal range of 10-15 mcg/ml. 2). Will continue with current regimen. 3). Pharmacy will order subsequent vancomycin concentrations and adjust accordingly. 4). Please continue to monitor renal function. Aliya Santizo PharmD, BRIANDA, BCPS Pharmacist (Night) Lead - Emergency Medicine/Critical Care * Ranulfo Valverde RN - 03/07/2020 1613 EDT Initial Case Management/Social Work Assessment and Discharge Plan/Readmission Risk Assessment REASON FOR ADMISSION: Diabetic foot ulcer ([facility]) Patient understands reason for admission: Yes PATIENT CONTACT INFO VERIFIED: Yes PATIENT ADDRESS VERIFIED: Yes Patient lives with her and their four children: three foster, (soon two are to be adopted),and one bilogical. LIVING ARRANGEMENTS AND ACCESSIBILITY ISSUES: Living Arrangements: Spouse / significant other, Children Levels: 3 Stairs to enter: (unknown) Bathroom located on bedroom level?: (unknown) What in home social supports are available to the patient? Friends / neighbors, Children, Spouse / significant other Is 24/7 care available? Yes ADVANCED DIRECTIVES, POA &/or COLST IN PLACE: Healthcare Directive: No, patient does not have advance directive for healthcare treatment Information Provided on Healthcare Directives: No Information on Healthcare Directives Requested: No DIRECTIVES FOR FINANCES: TRANSPORTATION: Transportation: Family, Self CULTURAL, HOAHAOISM and/or LANGUAGE factors affecting health care/discharge planning: Spiritual/Cultural Requests: None Insurance in Place: Yes Medical Insurance: Yes Type of insurance: Medicaid Medicaid Type: Community Referred to patient financial services: No Nutrition: DISCHARGE RISK ASSESSMENT: Diagnosis of Diabetes Total # selected above: Score of 1 - 2: This patient is at LOW RISK for re-hospitalization Tentative plan to address the risk of re-hospitalization for those at HIGH MODERATE RISK: Bring risk factors to attention of team to be addressed RAPT TOOL: Patient expects to be discharged to: home SBIRT: SASQ (Single Alcohol Screening Question) How many times in the past year have you had 4 or more drinks in a single day?: Never How many times in the past year have you used an illegal drug or used a prescription medication fornon-medical reasons?: Never Intervention in place/initiated?: No, not indicated FUNCTIONAL STATUS: Activities patient requires assistance: None Assistive Device: None COMMUNITY RESOURCES/SUPPORTS: Primary Care Provider: Tonja Alejandro PCP Verified: Yes Specialists: Type of Home Health Services: None DME Provider: Pharmacy: [id number] - [facility] [address] [facility] [address] Home Health: Other: POST HOSPITAL TRANSITION PLAN: Have met with the pt and her this day. She just had a debridement and BX. Awaiting results. Pt and her are both working and raising children. 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 Will await results of the BX and the determination regarding need for medication and specifics related to type, and duration and recommendations for mode of delivery. Case Management will follow for transition. This pt has Medicaid and is capable to having home IV medication if needed. Specifics for finances would need to be confirmed [facility] if IV is indicated. RANULFO VALVERDE RN CCM 0430 03/07/2020 16:13 * Vicki Phan RN - 03/07/2020 0867 EDT Diabetes Nurse clinician met with tSella for review of SDM handout and diabetes management. SMBG: Checks 3-6 times a day Medications: Lantus and Novolog Diabetes Provider:Sara Bryanello Tells me that she has had Diabetes for 9-10 years.Has hx of morbid obesity where weight was >500lbs and she reports to me that with diet and lifestyle changes her current wt is 205 lbs. Stella reports to me that she is fearful of regaining this weight back and is eager to learn more about what healthy eating looks like.Would highly encourage to seek nutritional counseling with RD/CDE. She also reports many reproductive issues and this has been a very big stressor on her overall health. We discussed SDM an how she is interested in moving forward with possibly a CGM to gain better glucose control. Tells me 150's are low for her and she feels symptomatic at this range. Is really encouraged by time spent at outpatient endocrinology and is hopeful to learn neil about helpful ways to manage her diabetes care. Provided her meal planning and carb counting booklet as well as a planning healthy meals folder. Vicki CLARKE nib finisher Nurse Clinician #[id number] * Valencia Antunez - 03/07/2020 0952 EDT Medicine Progress Note Service Date: 03/07/2020 Admit Date: 03/06/2020 18:11 Reason for Admission: 34 y.o. female admitted with a chief complaint of left great toe pain and swelling and now with a principal diagnosis of diabetic foot ulcer. 24 Hour Events: No new events Subjective/Objective Subjective Patient states she is fatigued this morning, did not sleep well overnight. She reports increased nausea without vomiting and had difficulty eating this morning. She is urinating well, has not yet hada bowel movement. She denies fever, chills, chest pain, SOB, lightheadedness, vomiting. She feels her swelling has gone down significantly since starting IV antibiotics. Review of Systems A ten point review of systems was performed and was negative except for pertinent positives noted in the HPI Objective Vital Signs Temp: [36 ??C (96.8 ??F)-37.1 ??C (98.7 ??F)] , Heart Rate: [89 BPM-120 BPM] , Resp: [18-20] , BP: (101-127)/(58-101) , SpO2: [98 %-100 %] Physical Exam General appearance: alert, cooperative, no distress Head: Normocephalic, without obvious abnormality, atraumatic Eyes: conjunctivae/corneas clear. PERRL, EOM's intact. Fundi benign Neck: supple, symmetrical, trachea midline and no JVD Lungs: clear to auscultation bilaterally, non labored breathing Heart: regular rate and rhythm, S1, S2 normal, no murmur, click, rub or gallop Abdomen: soft, non-tender; bowel sounds normal; no masses, no organomegaly Extremities: all extremities warm and well perfused. TTP from mid-calf distally of left LE, pain with AROM of ankle, limited AROM of digits. Left foot and ankle mildly edematous, pink, and warm to the touch. Diabetic ulcer present on plantar surface of left great toe, surrounding local erythema, and seropurulent drainage. Pulses: 2+ and symmetric UE and LE Skin: Skin color, temperature, turgor normal. No rashes or lesions Is PICC or central line present? No, PICC/Central line not present. Medications Reviewed: Changes notable for zofran 4mg q4h PRN. Labs Reviewed: Results notable for Platelets 387, Cr 0.44, HA1c 10.4. Imaging Xr Foot Left 3 Or More Views Result Date: 03/04/2020 XR FOOT LEFT 3 OR MORE VIEWS Findings/ Impression: No fracture or focal osseous lesion. Diffuse soft tissue swelling. Enthesopathic spurring at the origin of the plantar fascia. Type II os naviculare. Xr Toe Left 2 Or More Views Result Date: 03/04/2020 XR TOE LEFT 2 OR MORE VIEWS Findings/ Impression: No fracture or malalignment. Soft tissue defect is present at the plantar aspect of the distal phalanx of the great toe. No associated osseous erosion. Minimal osteoarthrosis ofthe interphalangeal joint. Swelling of the great toe noted. Assessment/Plan Assessment Cristy Luo is a 34 y.o. female with a PMHx significant for poorly controlled type 2 diabetesc/b neuropathy and foot ulcer, prior morbid obesity, and tobacco use disorder who presented to the ED for worsening toe pain and swelling. Patient was initially seen in the ED on 03/04 and failed outpatient treatment with Augmentin and Bactrim. Patient presented afebrile, tachycardic, and hypertensive. The ulcer did not probe to bone. Patient remains afebrile, is now normotensive, with an improvedWBC of 11.29. Remains on vancomycin 1.5g IV q8h and metronidazole 500mg IV q8h. Awaiting MR of the foot to assess for osteomyelitis. Plan # Diabetic left foot ulcer with evidence of infection: left great toe, did not probe to bone in ED.Xray does not demonstrate bony involvement. Blood culture drawn last ED visit 03/04 pending. - continue vancomycin and metronidazole IV - f/u blood culture 03/04 - Repeat blood cultures if patient becomes febrile - Awaiting MR left foot w/ w/o contrast, f/u results - tylenol PRN - Zofran PRN - avoid NSAIDs while on vanco - orthopedics consult # Diabetes mellitus type II - Continue decreased home lantus of 30U at bedtime - Continue decreased home novolog of 9U TID with meals - Sliding scale insulin - Consistent carb diet - Hgb A1c 10.4, f/u fructosamine results (orded as outpatient by Endocrinology) VTE Prophylaxis Pharmacologic Prophylaxis: Enoxaparin (Lovenox) 40 mg SQ daily Discharge Plan Home or self care Consults None VALENCIA ROSE 03/07/2020 9:52 Associated attestation - Adair Martinez PA-C - 03/07/2020 5947 EDT I attest that I have reviewed the student note and that the components of the history of the present illness, the physical exam, and the assessment and plan documented were performed by me or were performed in my presence by the student and verified by me. In short, this is a 34 y.o. female with PMHx of uncontrolled T2DM complicated by peripheral neuropathy and foot ulcer, morbid obesity, tobacco use disorder who presents with worsening left great toe infection while on oral antibiotics. She appears to be improving on IV antibiotics. Await orthopedics follow-up. documented in this encounter H&P Notes * Carrington Padilla MD - 03/06/2020 5984 EDT Images from the original note were not included. Medicine Admission History & Physical Service Date: 03/06/2020 Admit Date: 03/06/2020 18:11 Primary Care Provider: Tonja Alejandro Chief Complaint: Diabetic foot HPI Cristy Luo is a 34 y.o. female with a PMHx including poorly controlled type 2 diabetes c/b neuropathy (Hgb A1c 10 11/23), past history morbid obesity (weighed >500lb 2010, improved with lifestyle changes), tobacco use disorder presenting after failed outpatient antibiotic treatment of diabetic foot infection. Has had left great toe ulcer ~3 months, followed by podiatry (Dr. Navarro). Presented initially to the ED 2 days ago with great toe pain and swelling Became infected: red, swollen, painful. Started on Augmentin and Bactrim and discharged home. Since then, foot pain/swelling/redness has gotten worse and today she was feeling feverish and nauseous with vomiting despite the treatment. Foot has become much more painful over the past month to the point over the past week where it is difficult for her to ambulate due to pain. She was seen by Dr. Navarro in December, callus was debrided, and wound did not probe to bone. She also had MR in November which did not show evidence of osteo. In the ED, afebrile, initially tachy to 120 and BP 127/101. Ulcer did not probe to bone. Given morphine IV 5mg x1 and vancomycin IV x1. WBC 16.8, CRP 27.7. CMP unremarkable, glucose 186. Denies pain in the calf, trouble breathing, dizziness, headache, nausea at current. Ongoing toe pain which makes it hard to walk. Counseled patient and partner on what to expect with hospitalization. Review of Systems A complete 10 point ROS was performed and pertinent positive and negative findings listed in HPI, otherwise negative. Past Medical History: Diagnosis Date ??? Anxiety ??? Arthritis 12/05/19- Spine- told years ago ??? Diabetes ([facility]) A1c 10.3 on 11/28/2019 ??? History of [...] Last attempt to quit: 08/07/2019 Years since quittin.5 ??? Smokeless tobacco: Never Used Substance Use Topics ??? Alcohol use: Not Currently Alcohol/week: 0.0 standard drinks Frequency: Monthly or less Drinks per session: 1 or 2 Binge frequency: Never Comment: very rare Family History Problem Relation Age of Onset ??? Diabetes Mother ??? Diabetes Maternal Grandmother ??? Diabetes Maternal Grandfather ??? Diabetes Paternal Grandmother ??? Diabetes Paternal Grandfather Medications Prior to Admission Medication Sig ??? amoxicillin-clavulanate (AUGMENTIN) 875-125 mg per tablet Take 1 Tab by mouth 2 times daily for10 days. ??? blood glucose meter One Touch Verio Flex meter. ??? blood glucose test strips One Touch Verio IQ or other brand compatible with meter and covered by patient's insurance. Testing QID. ??? insulin aspart U-100 (NOVOLOG FLEXPEN) 100 unit/mL (3 mL) injectable pen Inject 4-6 Units into the skin 3 times daily with meals. ??? insulin glargine (LANTUS SOLOSTAR) 100 unit/mL (3 mL) injection pen Inject 30 Units into the skin at bedtime for 90 days. ??? lancets One Touch Delica or other brand compatible with lancing device and covered by patient'sinsurance. ??? sulfamethoxazole-trimethoprim (BACTRIM/CO-TRIMOXAZOLE DS) 800-160 mg per tablet Take 1 Tab by mouth every 12 hours for 10 days. Allergies Allergen Reactions ??? Citalopram Other (See Comments) suicidal ideation, approx 2012 ??? Other - See Comments Swelling of throat pomergrante ??? Advil [Ibuprofen] Hives Objective Vitals Temp: [36.7 ??C (98.1 ??F)-37.1 ??C (98.7 ??F)] , Heart Rate: [94 BPM-120 BPM] , Pulse: --, Resp: [18-20] , BP: (107-127)/(58-101) , SpO2: [98 %-100 %] , Numeric Pain Level (Scale 1-10): 9 Weight: Weight : 89.8 kg (198 lb) Body mass index is 33.99 kg/m??. Physical Exam: General: Alert and oriented, responding appropriately, mildly anxious appearing HEENT: Normocephalic, atraumatic, oropharynx clear, mucous membranes moist Lungs: Clear to auscultation bilaterally, no wheezes, rales, or rhonchi Heart: Regular rate and rhythm, no murmur, click, rub or gallop Abdomen: Normoactive bowel sounds. Soft, non-tender, non-distended; no masses, no organomegaly : No Owens Extremities: Warm, well perfused. Left great toe with clean based ulcer. Left foot and ankle swollen and mildly erythematous tracking up foot. See pictures below. L great toe significantly more swollen than right, significant pain elicited with minor passive movement. Pulses: 2+ and symmetric DP and PT Skin: Skin color, texture, turgor normal. No rashes or lesions Neurologic: Alert and oriented x 3. Grossly intact Pressure Ulcer Present on admission? No Labs I have personally reviewed Recent Labs 03/04/20 1503 03/06/201925 WBC 14.64* 16.83* RBC 4.58 4.66 HGB 14.1 14.1 HCT 40.0 40.6 MCV 87 87 MCH 30.8 30.3 MCHC 35.3 34.7 PLT 414* 458* NEUTROABS -- 10.55* SEDRATE 54* -- Recent Labs 03/06/201925 NA 139 K 4.2 CL 101 CO2 27 BUN 13 CREATININE 0.49* CALCIUM 9.9 LABALBU 4.2 Recent Labs 03/06/201925 TBIL <0.5 ALKPHOS 108 AST 18 ALT 12 Blood culture 03/04 pending Imaging XR FOOT LEFT 3 OR MORE VIEWS 03/04/2020 3:30 PM?? IMPRESSION Findings/ Impression: No fracture or focal osseous lesion. Diffuse soft tissue swelling. Enthesopathic spurring at the origin of the plantar fascia. Type II os naviculare. Assessment Cristy Luo is a 34 y.o. female with a PMHx significant for poorly controlled type 2 diabetesc/b neuropathy (Hgb A1c 10 11/23) and foot ulcer, past history morbid obesity (weighed >500lb 2010, improved with lifestyle changes), tobacco use disorder presenting after failed outpatient antibiotic treatment of diabetic foot infection. Begun on vancomycin and metronidazole. Monitoring overnight, plan for MR foot to evaluate for osteomyelitis. Plan Diabetic left foot infection: left great toe, did not probe to bone in ED. Xray without bony lesion. Blood culture drawn last ED visit 03/04 pending, no blood culture drawn prior to administration of vanco in the ED. - continue vancomycin and metronidazole IV, would broaden to cover pseudomonas if pt deteriorates clinically - f/u blood culture 03/04 - if becomes febrile, repeat blood cultures - MR left foot w/ w/o contrast, consult Ortho in am pending results - tylenol PRN - avoid NSAIDs while on vanco - additional morphine 5mg IV x1 Diabetes mellitus type 2: - home lantus decreased from 40U to 30U at bedtime - home novolog decreased from 10U to 9U TID with meals - SSI - CC diet - f/u Hgb A1c and fructosamine (orded as outpatient by Endocrinology) VTE Prophylaxis Pharmacologic Prophylaxis: Enoxaparin (Lovenox) 40 mg SQ daily Code: Full Discharge Plan Home or self care Consults None Admission Status Observation. Anticipated duration of hospitalization is less than two midnights. Catherine Booth MD 03/06/2020 21:46 I have personally seen and examined the patient. I reviewed the laboratory and radiographic results. The case was discussed with the medicine house staff and I agree with the findings above and plan of care documented. Please see my additional comments in [place]. Enzo Padilla MD Internal Medicine Hospitalist documented in this encounter Procedure Notes * Nory Ware, RN - 03/11/2020 1400 EDTAssociated Order(s): INSERT PICC LINE Central Catheter Insertion First Catheter This Session assistant district attorney: Patient Location: M606/M606-02 Preliminary Data: Insertion Date: 03/11/20 Insertion Time: 1353 First Data Warehousing Specialist: Nory Ware RN RN/SANDOR Documenting Procedure: Jessika Mcdonald RN Pre-procedure: Time Out / Final Moment Performed: Yes Hand Hygiene Immediately Prior To Procedure: Yes Site Disinfected-2% Chlorhex/70% Alcohol: Yes Procedure Site Completely Dry: Yes Entire Patient Draped in Sterile Fashion: Yes Intra-procedure: Sterile Gloves Used: Yes Cap, Mask, and Sterile Gown - Operators: Yes Sterile Field Maintained: Yes Cap and Mask Worn - All Personnel: Yes Post-procedure: Sterile Dressing Applied - Sterile Technique: Yes Dressing Dated And Timed: Yes Needle Passes: PADILLA RN Makes 2 Or Fewer Needle Passes: 2 or fewer passes Physician Documentation Pre-Procedure: Procedure To Be Performed: New central line placement Indication: New indication Line Priority: Routine Tip Confirmation: 3CG Consent Obtained: Yes The patient and/or family have been provided education/training to minimize the risk of central line-associated bloodstream infections. Central Line Type: Central Catheter Type: PICC PICC Type: Solo PICC Central Line Details: Line Location: Right Final Tip Location: Other (Comment)(CAJ with 3 CG) Line Lumens (#): Single Central Line Size: 4 Fr Line Coating: Non-antimicrobial coated Vessel Size: (.30) Vein Depth (cm): 0.5 cm Line Trim Length: 40 cm Line External Length: 1 cm Line Securement Device: Statlock device Catheter Secured At (cm):: (1) Responsible Service / IR Details: Responsible Service: PADILLA RN Lidocaine 1% - Route/Dose (cc's): Intradermal;1 Central Line Materials and Methods: Number of Attempts: 1 Number of Sites Attempted: 1 Number of Kits Used: 1 Location Device Used: Ultrasound;3CG;Sherlock Central Line Operators: Number Of Operators: 1 First Data Warehousing Specialist's Name: Nory Ware RN First Data Warehousing Specialist's Title: Vascular respiratory therapy instructor Unless otherwise noted, there were no complications, no blood loss and no cultures obtained. NORY WARE RN 03/11/2020 14:01 documented in this encounter Consult Notes * Zoe Murray MD - 03/09/2020 1203 EDT Infectious Disease Consult Note Admit Date: 03/06/2020 Date of Service: 03/09/2020 Requesting Physician: Dr. Jenkins Reason for Consult: DM foot infection complicated by osteomyelitis HPI: (include onset, location, quality, severity, duration, timing, associating symptoms) 34 y/o female with DM presents with worsening wound drainage, malodor, pain, edema, chills, vomiting, now with evidence of osteomyelitis. Patient has a history of DM complicated by neuropathy. Also with past history of morbid obesity though has lost over 200 pounds. Despite this A1C remains 10%. Developed a left plantar great toe ulcer in ~ early November. She thinks related to callous formation, which has been a chronic problem. Treated with keflex X 1 week early December though no improvement. MRI atthat time revealed no evidence of osteomyelitis. Seen by podiatry 12/31. Callous formation around the ulcer noted as well as tendinopathy in the ankle for which a walking boot was prescribed. Patient reports since that time the ulcer has increased in size. In the last few weeks there has been markedincrease in pain and in the several days prior to admission, malodorous drainage. Was seen in the ED on 03/04. No cultures obtained. CRP elevated to 33. Treated empirically with Augmentin and bactrim.On 03/06 developed acute onset chills, nausea, vomiting and worsening pain and edema [facility] given concern for evolving deep space infection. Started empirically on vanco and flagyl. Ortho consulted who performed debridement. Ulcer noted to probe to bone. Bone specimen obtained for g/s which revealed few PMN, few GPC. Cultures now with MSSA and beta strep organism. ID asked to comment on additional therapeutics and diagnostics. Currently, patient reports she's feeling much better. Foot pain radiating to lower leg is no longerpresent. Pain in left toe persists. Edema has also receded, now involving her toe only. No fevers. Intermittent nausea, though not new. No diarrhea. Unsure if the antibiotics prior to admit caused side effects--she took about 3 doses prior to admit. Does not recall any trauma to her foot but admitslimited sensation. No past history of repeated infections. 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 Review of Systems: Remainder of a ten point review of systems was performed and negative. Past Medical History: has a past medical history of Anxiety, Arthritis, Diabetes ([facility]), Historyof general anesthesia, Nausea & vomiting, Obesity, unspecified, Peripheral neuropathy, Skin problem, and Spontaneous miscarriage (09/04/2015). Past Surgical History: has a past surgical history that includes other surgical history; Breast cyst excision; Dilation and curettage of uterus; Dilation and curettage of uterus; Dilation and curettage of uterus; Dilation and curettage of uterus; Dilation and curettage of uterus; Dilation and curettage of uterus; and Pilonidal cyst excision. Medications: MAR reviewed. Anti-infectives: vanco day 4; flagyl IV Q 8 day 3 Prior to this received three doses each of Augmentin/bactrim. Allergies: Citalopram, Other - see comments, and Advil [ibuprofen] Family History: family history includes Diabetes in her maternal grandfather, maternal grandmother,mother, paternal grandfather, and paternal grandmother. Social History: . Lives with her and children. 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 Vital Signs: BP 109/66 (BP Cuff Location: Right arm, BP Patient Position: Sitting) Temp 37 ??C (98.6 ??F) (Tympanic) Resp 18 Ht 162.6 cm (64) Wt 93 kg (205 lb 0.4 oz) SpO2 99% BMI 35.19 kg/m?? Exam: Gen: Alert, interactive. NAD. Non toxic appearing. On RA. Head/Neck: Anicteric, no subconjunctival hemorrhage. Oral mucosa moist. No thrush. Heart: Tachycardic, regular. No murmer. Lungs: CTA. Abdomen: soft, ND. : No owens. Lymph Nodes: No cervical, supraclavicular, left inguinal or popliteal adenopathy. Skin: Left great toe ulcer inspected. Ulcer is on proximal aspect of plantar great toe (though distal to MTP joint). There is copious purulent drainage pooling at ulcer base. I am easily able to probe to bone. Palpation over MTP (proximal to ulcer) increases purulent drainage at site of ulcer. MTP joint ROM not painful. The toe with fusiform edema. Toes 2-5 without edema or erythema. Left foot with warmth though no edema. Musculoskeletal: MTP ROM left great toe limited but pain-free. Left ankle ROM is pain-free. No effusion. Extremities: 2+ DP pulse on left. Neuro: Sensation intact to deep pressure but not to LT left foot. Catheters: PIV Data Review: Laboratory data reviewed. Pertinent positives include: Labs: WBC/RBC/HGB/HCT/PLT/ANC11.24/4.29/13.2/37.9/406/-- (03/08 0720) Cr 0.42 CRP on 03/04 33.5 Microbiology: Blood cultures 03/06: negative to date Bone culture 03/07: Few PMN, few GPC--culture thus far with MSSA, beta strep(formal ID pending) and possibly two other organisms. Other: Radiological Studies: I have independently visualized the toe xray. No obvious erosions. MRI form 12/04 without bone involvement. Assessment: 1. Purulent plantar toe ulcer complicated by osteomyelitis. Purulence expressed with palpation proximal to ulcer (overlying MTP) suggests possible ascending infection with deeper structure involvement, such as flexor tendon. Although ROM of MTP is not painful it is limited and she is quite insensate, thus joint involvement not excluded. Systemic symptoms at time of presentation suggest acute process that was progressing despite initiating antibiotics, suggesting persistent focus of infection. At this time, would favor MRI of foot with focus on distal foot, left great toe. If she has a collection or has developed a sequestrum or septic arthritis, would favor drainage, as this will hasten her recovery. Given appearance today, I suspect she will need a PICC and IV antibiotics. Based on current micro (at least MSSA and beta strep recovered thus far) would d/c vancomycin, would transition tocefazolin. Would continue anaerobic coverage though would change her IV flagyl TID to PO flagyl BID. 2. DM. Complicated by neuropathy. AIC not well controlled. Endocrine involved. Recommendations: 1. MRI left foot, with emphasis on great toe and associated structures. 2. D/c vanco. 3. Cefazolin 2 grams IV Q 8 hours. 4. D/c IV flagyl. Transition to flagyl 500 mg PO BID. 5. Follow cultures and clinical exam. 6. I suspect she will need a PICC and IV therapy. Discussed with primary care team and orthopedics. Zoe Murray MD 03/09/2020 12:03 * Carrington Mari MD - 03/07/2020 1144 EDT Images from the original note were not included. Orthopaedic Surgery Consultation Consultation requested by: Adair Martinez for: left great toe diabetic foot wound HPI: Cristy Luo is a 34 y.o. female with history of type 2 diabetes (hemoglobin A1c 10.4), neuropathy, obesity, tobacco use who originally presented to the emergency department on 03/04 for diabeticfoot wound. She was prescribed Augmentin and Bactrim however she saw her PCP who noted pain, swelling, and purulent drainage from that left great toe along with nausea and emesis and re- presented to the emergency department at his request on 03/06. The patient has had this ulcer since October, and notedworsening left foot pain and swelling in . She was placed in a walking boot in early January by her PCP for suspected tendonitis and noted worsening pain with increased discharge since that time. She did not recall any trauma or change in activity around that time when it had started however had progressively worsened the point where she was unable to put weight on it at that time. There is no pain when she was resting however she endorses a burning sensation along the medial midfoot extending up to the calf which prevented her from sleeping. She also notes recent aching pain extending from her foot to her knee on the left leg. She notes chills, malaise and emesis occurring since yesterday but no systemic symptoms prior to that. Bilateral tingling is present on the plantar surfaces and is unchanged since her baseline neuropathy. Since her admission she was placed on vancomycin and has been off loading the left foot. The patient noted that she feels much better since being onantibiotics. Her swelling has improved, her nausea has also improved. Of note the patient was seen by Dr. Navarro on 12/24/2019 for this left great toe ulcer as well as left ankle pain. At that time there was excessive callus buildup along the plantar aspect of her great toe which was pared down and also discussed that her left ankle pain was consistent with a tendinitis and a partial tear in the setting of not having any trauma. She was placed in a walking boot and recommended for her to follow-up in 2 weeks however she was lost to follow-up. 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 She is a current smoker and endorses occasional alcohol and marijuana use. Ambulatory status: ambulates without assistive devices Last meal: 12:30 03/07/20 Past Medical History: Diagnosis Date ??? Anxiety ??? Arthritis 12/05/19- Spine- told years ago ??? Diabetes ([facility]) A1c 10.3 on 11/28/2019 ??? History of [...] (mostlikely pilonidal cyst) ??? PILONIDAL CYST EXCISION Prior to Admission medications Medication Sig Start Date End Date Taking? Authorizing Provider amoxicillin-clavulanate (AUGMENTIN) 875-125 mg per tablet Take 1 Tab by mouth 2 times daily for 10 days. 03/04/20 03/14/20 Mayank Cruz MD blood glucose meter One Touch Verio Flex meter. 10/04/19 Mayra Lund MD blood glucose test strips One Touch Verio IQ or other brand compatible with meter and covered by patient's insurance. Testing QID. 10/01/19 Mayra Lund MD insulin aspart U-100 (NOVOLOG FLEXPEN) 100 unit/mL (3 mL) injectable pen Inject 4-6 Units into the skin 3 times daily with meals. Provider, MD Brittany insulin glargine (LANTUS SOLOSTAR) 100 unit/mL (3 mL) injection pen Inject 30 Units into the skin at bedtime for 90 days. 12/04/19 03/06/21 Sara Zafar APRN lancets One Touch Delica or other brand compatible with lancing device and covered by patient's insurance. 10/01/19 Mayra Lund MD sulfamethoxazole-trimethoprim (BACTRIM/CO-TRIMOXAZOLE DS) 800-160 mg per tablet Take 1 Tab by mouthevery 12 hours for 10 days. 03/04/20 03/14/20 Mayank Cruz MD Allergies Allergen Reactions ??? Citalopram Other (See Comments) suicidal ideation, approx 2012 ??? Other - See Comments Swelling of throat pomergrante ??? Advil [Ibuprofen] Hives Family History Problem Relation Age of Onset ??? Diabetes Mother ??? Diabetes Maternal Grandmother ??? Diabetes Maternal Grandfather ??? Diabetes Paternal Grandmother ??? Diabetes Paternal Grandfather Social History: reports that she has been smoking cigarettes. She started smoking about 9 years ago. She has a 0.16pack-year smoking history. She has never used smokeless tobacco. She reports previous alcohol use. She reports current drug use. Drug: Marijuana. 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 All others are negative. Physical Exam: BP 106/59 (BP Cuff Location: Right arm, BP Patient Position: Semi fowlers) Temp 36.2 ??C (97.2 ??F) (Tympanic) Resp 18 Ht 162.6 cm (64) Wt 93 kg (205 lb 0.4 oz) SpO2 99% BMI 35.19 kg/m?? General: alert, awake, no apparent distress; patient sitting comfortably in her bed prior to and during examination Respiratory: non labored breathing CV: regular rate and rhythm as judged by distal pulses Focused Musculoskeletal and Neurovascular Examination Left lower extremity: - An approx. 0.5 x 0.5 ulcer noted on the plantar surface of the 1st digit. Surrounding callous noted. Probes to bone in the distal segment but not on the margins. Central fibrinous tissue noted. - Tenderness to palpation at the plantar aspect of the great toe. Otherwise, no tenderness to palpation of the forefoot, midfoot, hindfoot, ankle, leg, knee, thigh. No pain with active plantar or dorsi flexion - Sensation slightly diminished over the plantar foot but otherwise intact to light touch in sural,saphenous, superficial peroneal, deep peroneal, and tibial nerve distributions diminished but intact - 5/5 strength in tibialis anterior, gastroc soleus complex, 4/5 EHL, 1/5 FHL; - 2+ DP pulse, 2+ PTpulse Labs: WBC/Hgb/Hct/Plts: 11.29/13.0/37.2/387 (03/07 702) Na/K/Cl/CO2: 138/4.2/103/27 (03/07 702) BUN/Cr/glu/ALT/AST/amyl/lip: 10/0.44/--/--/--/--/-- (03/07 702) ESR: 25 CRP: 27 HgbA1c: 10.4 Diagnostic Imaging: - AP,lateral, and oblique radiographs of the left foot demonstrate no osseous erosions. There is soft tissue swelling around the great toe but otherwise no change from imaging obtained in February or December Procedure: Obtained verbal consent. Risks, benefits, and alternatives discussed. Patient elected to proceed with non-excisional debridement of the left great toe. 10cc of 1% lidocaine without epi and 0.25% bupivacaine in a 1:1 raitio was injected as a digital block. Patient was prepped and draped in standard sterile fashion. Wound was debrided to healthy bleeding tissue to subcutaneous tissue. 1cm by 1cm area was debrided. Wound did probed to bone distally. A rongeur was used to collected a bone culture. Wound was irrigated with 500cc of sterile normal saline. Wound was dressed with 4x4s and kerlix. Post-procedure exam unchanged. The patient tolerated the procedure well Assessment: Cristy Luo [id number] 1985 Cristy Luo is a 34 y.o. female history of type 2 diabetes (hemoglobin A1c 10.4), neuropathy,obesity, tobacco use who presents with a diabetic foot wound over the plantar aspect of her great toe that probed to bone distally. The callus was debrided and a bone culture was obtained. No furtherorthopedic intervention planned at this time. Plan: 1. No further acute orthopaedic intervention 2. NWB LLE with darco shoe, otherwise AAT 3. Dressing changes: daily with 4x4s and kerlix 4. Follow up final culture 5. Agree with antibiotics 6. Follow-up in orthopedics podiatry clinic. We will place referral. 7. Aggressive elevation 8. Pain management per emergency department provider Discussed with: Dr. Ramon Mari MD 03/07/20 11:44 documented in this encounter ED Notes * Catherine Luis, RN - 03/06/20202101 EDT 2030: Per MD Charles patient OK to eat and drink. Pt provided with a sandwich. * Elise Charles MD - 03/06/20202012 EDT I, Celestina Francis, am scribing for Miley Charles MD, while she is personally performing the service. Celestina Francis 03/06/2020 20:13 I performed a history and exam of this patient and discussed the case with the PA. I reviewed this individual's note and I concur with the documented findings and plan of care except as documented differently. ROS as per PA chart. Please see primary note by the PA. Nursing notes reviewed and vital signs reviewed. A medical screening exam was performed. Cristy Luo is a 34 y.o. female with a history of T2DM with neuropathy who presents to the [facility] PCP's reccomendation, with increased swelling and pain of the left great toe. Patient presented to the ED two days ago, 03/04/2020, with chronic cellulitis of the left great toe, managed with amoxicillin clavulanate and trimethoprim sulfa. She met with Dr. Moshe Ferrer (PCP) today, who noted increased pain, swelling, and purulent drainage of the left great toe, in addition to patient's report of occasional nausea and one episode of emesis. Dr. Ferrer was concerned for abscess formation or joint space invasion, given worsening edema and pain even with antibiotics onboard. It is notable that X-Ray on 03/04/2020 revealed no evidence of osteomyelitis. Today, patient describes her pain as electrifying, and similar to previous neuropathy pain. She recalls recently wearing a boot, and wonders if her pain is due to a pressure ulcer. She is afebrile,though endorses emesis and chills today while at work. She was given morphine 5 mg IV for pain management. Upon exam, the patient is noted to have a swollen, erythematous left great toe with an ulcer on theplantar surface . Differential diagnoses includes diabetic foot ulcer, cellulitis of the left greattoe, abscess formation, osteomyelitis or joint space invasion. I believe the patient is failing outpatient antibiotics. Patient is failing outpatient antibiotics. Patient was started on vancomycin 1.75 g IV, and she wasadmitted to Internal Medicine under the care of Carrington Padilla MD for IV antibiotic therapy. Please refer to notes provided by Internal Medicine for details of further care. Final diagnoses: Diabetic foot ulcer (FORMERLY [facility]) This documentation is recorded by Celestina Francis acting as Scribe under the direction and presence of Elise Charles MD. Elise Charles MD. I personally performed the services recorded by the scribe in my presence. Iconfirm the scribe's documentation has been reviewed by me to accurately and completely record my work, treatment, procedures, and medical decision making. * Siobhan Hare PA-C - 03/06/20201955 EDT Images from the original note were not included. DOS: 03/06/2020 Chief Complaint Patient presents with ??? Toe Pain pt arrives with infection to L big toe. describes it as a hole with serosanguinous drainage. hx DM. denies fevers at home. endorses vomiting and some chills today at work. see tcall. tachycardic. afebrile. HPI The patient is a 34 y.o. female who presents today with Toe Pain (pt arrives with infection to L big toe. describes it as a hole with serosanguinous drainage. hx DM. denies fevers at home. endorsesvomiting and some chills today at work. see tcall. tachycardic. afebrile.) HPI Patient is a 34-year-old female past medical history significant for insulin- dependent diabetes, migraines, anxiety depression, and a persistent wound to the plantar surface of left great toe, who presents to the ED for evaluation of worsening wound. Patient states that her urine glucose is between1 7300s recently. She has had 2 months of a wound to the plantar surface of her left great toe, which has become quite painful. She was seen in the ED 2 days ago, had labs notable for CRP of 33, white blood cell count of 14, and an x-ray which demonstrated diffuse soft tissue swelling. She was prescribed Augmentin and Bactrim and discharged home. She states that she has been taking Augmentin and B actrim as directed, however despite this is developed chills, vomiting, fatigue, and increased painin her foot making ambulation difficult. She has continued wet-to-dry dressings, states that she believes there is more erythema to the dorsum of the foot that was not present previously, as well as increased swelling. 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 She had a telehealth visit with her PCP today, was directed to the ED for further evaluation Review of Systems Review of Systems See above, otherwise my standard 10 point ROS is negative. The patient's past medical, family and social history was reviewed and updated as needed. Allergies Allergen Reactions ??? Citalopram Other (See Comments) suicidal ideation, approx 2012 ??? Other - See Comments Swelling of throat pomergrante ??? Advil [Ibuprofen] Hives Vital Signs Vitals Reassessment?: Yes Temp: 36.2 ??C (97.2 ??F) Temp src: Tympanic Heart Rate: 89 BPM Resp: 18 SpO2: 99 % BP: 106/59 BP MAP: 74 mm Hg BP Device: BP Machine BP Patient Position: Semi fowlers BP Cuff Location: Right arm O2 Device: None (Room air) Physical Exam Vitals signs and nursing note reviewed. Constitutional: Appearance: Normal appearance. She is well-developed. HENT: Head: Normocephalic and atraumatic. Eyes: Conjunctiva/sclera: Conjunctivae normal. Neck: Musculoskeletal: Normal range of motion. Cardiovascular: Rate and Rhythm: Normal rate. Pulses: Normal pulses. Comments: Neurovascularly intact bilaterally, less than 3 second cap refill Pulmonary: Effort: Pulmonary effort is normal. No respiratory distress. Breath sounds: No wheezing or rales. Musculoskeletal: Normal range of motion. Feet: Skin: General: Skin is warm and dry. Neurological: Mental Status: She is alert and oriented to person, place, and time. RESULTS EKG orders: None Radiology orders: MR FOOT W WO CONTRAST LEFT XR FOOT LEFT 3 OR MORE VIEWS Procedures ED COURSE A medical screening exam was performed. Patient is a 34-year-old female past medical history significant for insulin-dependent diabetes, migraines, anxiety depression, and a persistent wound to the plantar surface of left great toe, who presents to the ED for evaluation of worsening wound Patient arrives tachycardic, hypertensive, yet afebrile. The wound to the plantar surface of her left great toe does not obviously track to bone, there is a foul odor, there is some erythema and swelling to the dorsum of the foot, she is exquisitely tender throughout Plan for repeat inflammatory markers, repeat labs, her leukocytosis is now 16,000, CRP is 27, her tachycardia has improved somewhat with hydration She has failed outpatient management of her foot ulcer with increased swelling and redness - plan to admit, given IV vanco, and plan for MR of the foot to further evaluate for osteomyelitis Supervising physician: Araceli Final diagnoses: Diabetic foot ulcer ([facility]) DISPOSITION: Admitted The patient's pain was managed to an adequate level weighing risk vs. benefit of further medications. Upon departure from the Emergency Department, the patient's pain was 8 on a zero to ten scale. Any further pain treatment will be at the discretion of the provider following up with the patient based on their clinical assessment. Condition at departure from the Emergency Department: Good PCP: Tonja Alejandro [facility] 03/07/2020 12:09 No flowsheet data found. * Leila Biggs RN - 03/06/2020 1849 EDT TCALL: Stella Luo 10-15-85 Dr. Ferrer refers pt to e.d for eval. CC: Infected toe, possible closed space infection. Seen here 2 days ago for same, put on abx. Now worse. Hx: DM. (GMD) documented in this encounter Miscellaneous Notes * Plan of Care - Jesica Sandy RN - 03/12/2020 1207 EDT Nursing Discharge Note D: Patient noted with discharge orders to: home. A: Prescriptions e-scripted. Reviewed discharge instructions and prescriptions with Patient PICC left in place and flushed per protocol. Education of taking care of PICC line given and patient demonstrated it. Belongings collected and sent home with patient. R: Patient verbalized understanding of discharge instructions and denied further questions. JESICA SANDY RN 03/12/2020 12:14 * Plan of Care - Quincy Huston RN - 03/11/2020 1734 EDT 03/11/20 Skin - R plantar lac Data: pt reports a new R plantar lac...currently has a mepilex drsg over it. This is a wound which pt was unaware of until her did a routine check of her feet..the patient has neuropathies soshe did not feel when it first occurred. The wound is approx 1 long and about 1/4 inch in width, there is no drng, no swelling, but the skin around the wound looks sl macerated. It does not appear infected. Action: suggested pt give this wound some open to air drying time when lying in bed, but to place new mepilex over it once out of bed. Provided pt w/a few new mepilexes. Response: pt allowed this wound air time at the time of the above review/discussion. Continue to monitor. QUINCY HUSTON RN 03/11/2020 17:34 * Plan of Care - Aden Sanz RN - 03/11/2020 9777 EDT Problem: GLYCEMIA IMBALANCE Goal: Clinical Indication Of Glycemia Balance Is Achieved Outcome: Ongoing Goal: Patient's Continuum Of Care Needs Are Met Outcome: Ongoing Problem: Impaired Skin Integrity Goal: Signs of wound healing will improve Outcome: Ongoing Goal: Care Plan Documentation Flowsheets (Taken 03/11/2020 0800) Area of Focus: Psychosocial Goal This Shift: provide emotional support and decrease anxiety level Data: Admitted with diabetic foot ulcer L great toe. I&D done in er. Alert & oriented x3. Up independently, uses wheelchair and has surgical shoe. C/o pain 7/10 in left great toe, declines pain medication. Pt states feeling anxious this morning, awaiting zoom call for her kids. Action: Surgery changed dressing on left foot this morning, c/d/I. PICC line placed in RUE. Provided emotional support and time alone in the conference room to make her call. Response: Pt states her anxiety is decreased, feeling better after her phone call. Continue to monitor and provide support. ADEN SANZ RN 03/11/2020 15:48 * Plan of Care - Aden Sanz RN - 03/10/2020 1555 EDT Problem: INFECTION Goal: Signs & Symptoms Of Infections Are Decreased Or Avoided Outcome: Ongoing Goal: Care Plan Documentation Flowsheets (Taken 03/10/2020 0830) Area of Focus: Discharge Plan Goal This Shift: go home or find out discharge plan Data: Pt admitted with left big toe diabetic ulcer. alert & oriented x3. Up independently. Denies pain. ACHS blood sugar checks. Dry dressing to left foot, c/d/I. Cut to the underside of right foot. Receiving po & iv antibiotics. Action: new mepilex applied to right foot. Medications received per AUG. Hourly rounding performed.Pt took wheelchair outside today. Response: Will continue to monitor. Call light within reach. Discharge plan is to place PICC and gohome with iv abx. ADEN SANZ RN 03/10/2020 15:55 * Plan of Care - Roscoe Stern RN - 03/09/2020 1233 EDT Data: The pt is alert and oriented X 3, calm and cooperative. Independent ot RR. PIV in right wrist. L great toe is bandaged. Dressing CDI. No order for changes. Done by surgery. Pt denies pain. Darco boot in place. WCTM. Action: Meds per order, frequent checks, EDU as needed, call calloway belongings within reach. Response:Pt remained safe on the unit this shift. ROSCOE STERN RN 03/09/2020 12:33 * Plan of Care - Ze Talley RN - 03/08/2020 1312 EDT Goal: Care Plan Documentation Flowsheets (Taken 03/08/2020 0830) Area of Focus: Discharge Plan Goal This Shift: pt will be discharged today Note: Data: Assumed care of pt at 0700, pt is A/Ox3, admitted with diabetic foot ulcer. Denies pain, independent and goes off the floor with her . Action: Administered scheduled antibiotics and insulin, hourly checks, dressing changed by this am. Response: Pt resting in bed visiting with , will ctm. ZE TALLEY RN 03/08/2020 13:08 * Plan of Care - Mignon Locke RN - 03/08/2020 0520 EDT Problem: INFECTION Goal: Signs & Symptoms Of Infections Are Decreased Or Avoided Outcome: Ongoing Data: Patient A/Ox3. Reports 4/10 pain to her left great toe, declines any PRN pain medication or intervention. Dressing to left great toe intact, no drainage. HS blood sugar 105, patient reports this is a low blood sugar for her, but is asymptomatic. VSS. Action: HS snack provided. Continue IV antibiotics as ordered. Encourage elevation of LLE. Monitor VS. Pain management. Dressing changed after original dressing fell off, small amount of red tinged purulent drainage on old dressing. Response: Patient resting comfortably throughout the night, without the need for any PRN pain medication. No acute changes this shift. MIGNON LOCKE RN 03/08/2020 5:20 * Plan of Care - Savita Brown RN - 03/07/2020 1703 EDT D: Received patient at 0700, AAOx3. Patient reporting discomfort from left great toe to lower castellanos.Denies pain/discomfort anywhere else. Patient receiving IV abx, due for MRI. Monitor blood sugar, and vitals. Patient ambulatory OOB to bathroom. A: Patient received XRAY of LEFT foot. Debridement of diabetic ulcer under left great toe done at bedside, dressing clean and intact. IV abx continued, monitor IV access site for complications. R: Patient VSS stable, IV access site flushed and free from complications during shift. Will continue to monitor diabetic ulcer wound. Problem: High Fall Risk: Goal: Patient Will Remain Free from Fall-Related Injury 03/07/20201702 by Savita Brown RN Outcome: Ongoing 03/07/20201701 by Savita Brown RN Outcome: Ongoing Problem: Daily Care Plan Goals Description: D: Patient admitted to [facility] @ 2300. Patient's chief complaint is a diabetic foot ulcer on left big toe. Pt c/o 11/13 pain upon arrival to unit. A: Admission assessment complete. Oriented pt to unit. Pain medication (see MAR) ordered and administered. R: Patient is resting in bed. Call calloway is within reach. No current needs expressed. MARISA BARAHONA RN 03/07/2020 2:55 Goal: Care Plan Documentation 03/07/20201702 by Savita Brown RN Outcome: Ongoing 03/07/20201701 by Savita Brown RN Outcome: Ongoing Problem: GLYCEMIA IMBALANCE Goal: Clinical Indication Of Glycemia Balance Is Achieved 03/07/20201702 by Savita Brown RN Outcome: Ongoing 03/07/20201701 by Savita Brown RN Outcome: Ongoing Goal: Patient's Continuum Of Care Needs Are Met 03/07/20201702 by Savita Brown RN Outcome: Ongoing 03/07/20201701 by Savita Brown RN Outcome: Ongoing Problem: INFECTION Goal: Signs & Symptoms Of Infections Are Decreased Or Avoided Outcome: Ongoing Problem: Impaired Skin Integrity Goal: Signs of wound healing will improve Outcome: Ongoing * Plan of Care - Carrington Mari MD - 03/07/2020 1157 EDT Consulted by medicine to evaluate the patient for diabetic foot wound. The patient was not in her room. According to nursing the patient and her went outside to get fresh air. Orthopedics will evaluate the patient at a later time Carrington Mari * Plan of Care - Marisa Barahona RN - 03/07/2020 0305 EDT D: Patient admitted to [facility] @ 2300. Patient's chief complaint is a diabetic foot ulcer on left big toe. Pt c/o 11/13 pain upon arrival to unit. A: Admission assessment complete. Oriented pt to unit. Pain medication (see MAR) ordered and administered. R: Patient is resting in bed. Call calloway is within reach. No current needs expressed. MARISA BARAHONA RN 03/07/2020 2:55 documented in this encounter Plan of Treatment Upcoming Encounters Date Type Department Care Team (Late st Contact Info) Description 02/21/2024 9:45 EDT Office Visit [facility] Adult Primary Care - [address] [id number] Carrington Calderon MD 1 [facility] [address] [place] [phone] 02/27/2024 8:30 EDT Telemedicine [facility] Sleep Program - [address] [id number] Rn, Sleep 02/29/2024 10:30 EDT Appointment [facility] Radiology Nuclear Medicine and PET - [address] [phone] 02/29/2024 14:30 EDT Appointment [facility] Radiology Nuclear Medicine and PET - [address] [phone] 03/01/2024 8:00 EDT Appointment [facility] Radiology Nuclear Medicine and PET [address] [address] 03/01/2024 9:30 EDT Appointment [facility] Radiology Nuclear Medicine and PET [address] [address] Scheduled Orders Name Type Priority Associated Diagnoses Orde r Schedule COMPLETE BLOOD COUNT AND DIFFERENTIAL Lab Routine Diabetic foot ulcer ([facility]) Ordered: 03/12/2020 CREATININE Lab Routine Diabetic foot ulcer ([facility]) Ordered: 03/12/2020 SED. RATE:WESTERGREN Lab Routine Diabetic foot ulcer ([facility]) Ordered: 03/12/2020 C REACTIVE PROTEIN Lab Routine Diabetic foot ulcer ([facility]) Ordered: 03/12/2020 Scheduled Referrals Name Type Priority Associated Diagnoses Orde r Schedule AMB CONS/FOLLOW UP PODIATRY Outpatient Referral Routine Diabetic foot ulcer ([facility]) Ordered: 03/07/2020 documented as of this encounter Procedures Procedure Name Priority Date/Time Associated Diagnosis Comments ECG REPORT - SCANNED 03/18/2020 10:51 EDT ORDERS - SCANNED 03/14/2020 7:54 EDT POCT GLUCOSE, INTERFACED Routine 03/12/2020 7:40 EDT POCT GLUCOSE, INTERFACED Routine 03/11/2020 21:39 EDT POCT GLUCOSE, INTERFACED Routine 03/11/2020 17:49 EDT INSERT PICC LINE Routine 03/11/2020 14:0 0 EDT POCT GLUCOSE, INTERFACED Routine 03/11/2020 11:57 EDT POCT GLUCOSE, INTERFACED Routine 03/11/2020 8:06 EDT POCT GLUCOSE, INTERFACED Routine 03/10/2020 21:23 EDT POCT GLUCOSE, INTERFACED Routine 03/10/2020 18:42 EDT POCT GLUCOSE, INTERFACED Routine 03/10/2020 12:24 EDT POCT GLUCOSE, INTERFACED Routine 03/10/2020 8:33 EDT COMPLETE BLOOD COUNT Routine 03/10/2020 7:01 EDT CREATININE Routine 03/10/2020 7:01 EDT ELECTROLYTES Routine 03/10/2020 7:01 EDT POCT GLUCOSE, INTERFACED Routine 03/09/2020 22:50 EDT MR FOOT W WO CONTRAST LEFT STAT 03/09/2020 22:38 EDT POCT GLUCOSE, INTERFACED Routine 03/09/2020 17:21 EDT POCT GLUCOSE, INTERFACED Routine 03/09/2020 13:23 EDT POCT GLUCOSE, INTERFACED Routine 03/09/2020 8:38 EDT POCT GLUCOSE, INTERFACED Routine 03/08/2020 20:52 EDT POCT GLUCOSE, INTERFACED Routine 03/08/2020 17:44 EDT POCT GLUCOSE, INTERFACED Routine 03/08/2020 13:15 EDT POCT GLUCOSE, INTERFACED Routine 03/08/2020 7:45 EDT COMPLETE BLOOD COUNT Routine 03/08/2020 7:20 EDT CREATININE Routine 03/08/2020 7:20 EDT ELECTROLYTES Routine 03/08/2020 7:20 EDT VANCOMYCIN TROUGH Routine 03/07/2020 21: 29 EDT POCT GLUCOSE, INTERFACED Routine 03/07/2020 21:25 EDT POCT GLUCOSE, INTERFACED Routine 03/07/2020 17:40 EDT ANAEROBE CULTURE/SMEAR(INC. AEROBES), OTHER Routine 03/07/2020 14:21 EDT XR FOOT LEFT 3 OR MORE VIEWS STAT 03/07/2020 13:38 EDT POCT GLUCOSE, INTERFACED Routine 03/07/2020 12:23 EDT POCT GLUCOSE, INTERFACED Routine 03/07/2020 11:11 EDT POCT GLUCOSE, INTERFACED Routine 03/07/2020 7:37 EDT COMPLETE BLOOD COUNT Routine 03/07/2020 7:02 EDT BUN Routine 03/07/2020 7:02 EDT CREATININE Routine 03/07/2020 7:02 EDT ELECTROLYTES Routine 03/07/2020 7:02 EDT POCT GLUCOSE, INTERFACED Routine 03/06/2020 23:53 EDT ZZCOVID-19 TEST [facility] PCR STAT 03/06/2020 22:00 EDT COVID-19 TESTING STAT 03/06/2020 22:0 0 EDT FRUCTOSAMINE Add-On 03/06/2020 19:26 EDT SED RATE Routine 03/06/2020 19:26 EDT COMPLETE BLOOD COUNT AND DIFFERENTIAL STAT 03/06/2020 19:26 EDT C REACTIVE PROTEIN Routine 03/06/2020 19 :26 EDT HEMOGLOBIN A1C Add-On 03/06/2020 19:26 EDT COMPREHENSIVE METABOLIC PANEL (CMP) STAT 03/06/2020 19:26 EDT documented in this encounter Results * ECG REPORT - SCANNED (03/18/2020 10:51 EDT) 03/18/2020 10:5 1 EDT Scan 2 [employer] PROCEDURE/MINOR BRAULIO GICAL ORDERABLES * ORDERS - SCANNED (03/14/2020 7:54 EDT) 03/14/2020 7:54 EDT Scan 2 [employer] ADMISSION ORDERABLE S * (ABNORMAL) POCT GLUCOSE, INTERFACED (03/12/2020 7:40 EDT) Glucose, POC 144(H) 70 - 100 mg/dL 03/12/2020 7:41 EDT [facility] basic sciences professor ID [id number] 03/12/2020 7:41 EDT [facility] HN LAB POC COMMENT (GLUCOSE) Test Performed by Nursing Services 03/12/2020 7:41 EDT [facility] Blood CAPILLARY BLOOD / Unknown 03/12/2020 7:40 EDT 03/12/2020 7:41 EDT Catherine Booth MD POINT OF CARE TEST ORDERABLES [facility] [address] [place] [address] * (ABNORMAL) POCT GLUCOSE, INTERFACED (03/11/2020 21:39 EDT) Glucose, POC 210(H) 70 - 100 mg/dL 03/11/2020 21:42 EDT [facility] basic sciences professor ID [id number] 03/11/2020 21:42 EDT [facility] HN LAB POC COMMENT (GLUCOSE) Test Performed by Nursing Services 03/11/2020 21:42 EDT [facility] Blood CAPILLARY BLOOD / Unknown 03/11/2020 21:39 EDT 03/11/2020 21:42 EDT Catherine Booth MD POINT OF CARE TEST ORDERABLES Performing Organization Address City/[facility]/ZIP Co de Phone Number [facility] [address] [place] [address] * (ABNORMAL) POCT GLUCOSE, INTERFACED (03/11/2020 17:49 EDT) Glucose, POC 151(H) 70 - 100 mg/dL 03/11/2020 17:53 EDT [facility] basic sciences professor ID [id number] 03/11/2020 17:53 EDT [facility] HN LAB POC COMMENT (GLUCOSE) Test Performed by Nursing Services 03/11/2020 17:53 EDT [facility] Blood CAPILLARY BLOOD / Unknown 03/11/2020 17:49 EDT 03/11/2020 17:53 EDT Catherine Booth MD POINT OF CARE TEST ORDERABLES Performing Organization Address [facility] Co de Phone Number [facility] [address] [place] [address] * INSERT PICC LINE (03/11/2020 14:00 EDT) Narrative Nory Ware RN - 03/11/2020 14:00 EDT Nory Ware RN ? 03/11/2020 14:03 Central Catheter Insertion First Catheter This Session ?assistant district attorney: Patient Location: [id number]/M606-02 Preliminary Data: Insertion Date: 03/11/20 Insertion Time: 1353 First [employer] Warehousing Specialist: Nory Ware RN RN/MA Documenting Procedure: Jessika Mcdonald RN Pre-procedure: Time Out / Final Moment Performed: Yes Hand Hygiene Immediately Prior To Procedure: Yes Site Disinfected-2% Chlorhex/70% Alcohol: Yes Procedure Site Completely Dry: Yes Entire Patient Draped in Sterile Fashion: Yes Intra-procedure: Sterile Gloves Used: Yes Cap, Mask, and Sterile Gown - Operators: Yes Sterile Field Maintained: Yes Cap and Mask Worn - All Personnel: Yes Post-procedure: Sterile Dressing Applied - Sterile Technique: Yes Dressing Dated And Timed: Yes Needle Passes: [facility] RN Makes 2 Or Fewer Needle Passes: 2 or fewer passes ?Physician Documentation Pre-Procedure: Procedure To Be Performed: New central line placement Indication: New indication Line Priority: Routine Tip Confirmation: 3CG Consent Obtained: Yes The patient and/or family have been provided education/training to minimize the risk of central line-associated bloodstream infections. Central Line Type: Central Catheter Type: PICC PICC Type: Solo PICC Central Line Details: Line Location: Right Final Tip Location: Other (Comment)(CAJ with 3 CG) Line Lumens (#): Single Central Line Size: 4 Fr Line Coating: Non-antimicrobial coated Vessel Size: (.30) Vein Depth (cm): 0.5 cm Line Trim Length: 40 cm Line External Length: 1 cm Line Securement Device: Statlock device Catheter Secured At (cm):: (1) Responsible Service / IR Details: Responsible Service: [facility] RN Lidocaine 1% - Route/Dose (cc's): Intradermal;1 Central Line Materials and Methods: Number of Attempts: 1 Number of Sites Attempted: 1 Number of Kits Used: 1 Location Device Used: Ultrasound;3CG;Sherlock Central Line Operators: Number Of Operators: 1 [employer] Warehousing Specialist's Name: Nory Ware RN First [employer] Warehousing Specialist's Title: Vascular respiratory therapy instructor Unless otherwise noted, there were no complications, no blood loss and no cultures obtained. NORY WARE RN ?? 03/11/2020 ?? 14:01 Jarrett Gutierrez PAIrene IV THERAPY ORDERABL ES * (ABNORMAL) POCT GLUCOSE, INTERFACED (03/11/2020 11:57 EDT) Glucose, POC 185(H) 70 - 100 mg/dL 03/11/2020 12:16 EDT [facility] basic sciences professor ID [id number] 03/11/2020 12:16 EDT [facility] HN LAB POC COMMENT (GLUCOSE) Test Performed by Nursing Services 03/11/2020 12:16 EDT [facility] Blood CAPILLARY BLOOD / Unknown 03/11/2020 11:57 EDT 03/11/2020 12:16 EDT Catherine Booth MD POINT OF CARE TEST ORDERABLES [facility] [address] [place] [address] * (ABNORMAL) POCT GLUCOSE, INTERFACED (03/11/2020 8:06 EDT) Glucose, POC 110(H) 70 - 100 mg/dL 03/11/2020 14:30 EDT [facility] basic sciences professor ID [id number] 03/11/2020 14:30 EDT [facility] HN LAB POC COMMENT (GLUCOSE) Test Performed by Nursing Services 03/11/2020 14:30 EDT [facility] Blood CAPILLARY BLOOD / Unknown 03/11/2020 8:06 EDT 03/11/2020 14:30 EDT Catherine Booth MD POINT OF CARE TEST ORDERABLES Performing Organization Address City/[facility]/ZIP Co de Phone Number [facility] [address] [place] [address] * (ABNORMAL) POCT GLUCOSE, INTERFACED (03/10/2020 21:23 EDT) Glucose, POC 185(H) 70 - 100 mg/dL 03/10/2020 21:26 EDT [facility] basic sciences professor ID [id number] 03/10/2020 21:26 EDT [facility] HN LAB POC COMMENT (GLUCOSE) Test Performed by Nursing Services 03/10/2020 21:26 EDT [facility] Blood CAPILLARY BLOOD / Unknown 03/10/2020 21:23 EDT 03/10/2020 21:26 EDT Catherine Booth MD POINT OF CARE TEST ORDERABLES [facility] [address] [place] [address] * (ABNORMAL) POCT GLUCOSE, INTERFACED (03/10/2020 18:42 EDT) Glucose, POC 154(H) 70 - 100 mg/dL 03/10/2020 18:47 EDT [facility] basic sciences professor ID [id number] 03/10/2020 18:47 EDT [facility] HN LAB POC COMMENT (GLUCOSE) Test Performed by Nursing Services 03/10/2020 18:47 EDT [facility] Blood CAPILLARY BLOOD / Unknown 03/10/2020 18:42 EDT 03/10/2020 18:47 EDT Catherine Booth MD POINT OF CARE TEST ORDERABLES Performing Organization Address City/[facility]/ZIP Co de Phone Number [facility] [address] [place] [address] * (ABNORMAL) POCT GLUCOSE, INTERFACED (03/10/2020 12:24 EDT) Glucose, POC 149(H) 70 - 100 mg/dL 03/10/2020 12:26 EDT [facility] basic sciences professor ID [id number] 03/10/2020 12:26 EDT [facility] HN LAB POC COMMENT (GLUCOSE) Test Performed by Nursing Services 03/10/2020 12:26 EDT [facility] Blood CAPILLARY BLOOD / Unknown 03/10/2020 12:24 EDT 03/10/2020 12:26 EDT Catherine Booth MD POINT OF CARE TEST ORDERABLES Performing Organization Address [facility]/ZIP Co de Phone Number [facility] [address] [place] [address] * (ABNORMAL) POCT GLUCOSE, INTERFACED (03/10/2020 8:33 EDT) Glucose, POC 126(H) 70 - 100 mg/dL 03/10/2020 8:39 EDT [facility] basic sciences professor ID [id number] 03/10/2020 8:39 EDT [facility] HN LAB POC COMMENT (GLUCOSE) Test Performed by Nursing Services 03/10/2020 8:39 EDT [facility] Blood CAPILLARY BLOOD / Unknown 03/10/2020 8:33 EDT 03/10/2020 8:39 EDT Catherine Booth MD POINT OF CARE TEST ORDERABLES Performing Organization Address [facility]/ZIP Co de Phone Number [facility] [address] [place] [address] * ELECTROLYTES (03/10/2020 7:01 EDT) Sodium 141 136 - 145 mEq/L 03/10/2020 8:04 EDT [facility] Potassium 4.6 3.5 - 5.0 mEq/L 03/10/2020 8:04 EDT [facility] Chloride 103 96 - 110 mEq/L 03/10/2020 8:04 EDT [facility] CO2 Total 29 22 - 32 mEq/L 03/10/2020 8:04 EDT [facility] Blood VENOUS BLOOD / Unknown Venipuncture / Unknown 03/10/2020 7:01 EDT 03/10/2020 7:35 EDT Adair Martinez PA-C CHEMISTRY & BLOOD GA S ORDERABLES Performing Organization Address [facility] Co de Phone Number [facility] [address] [place] [address] * (ABNORMAL) COMPLETE BLOOD COUNT (03/10/2020 7:01 EDT) WBC 12.33 4.00 - 12.40 K/cmm 03/10/2020 7:42 EDT [facility] RBC 4.61 3.86 - 5.04 M/cmm 03/10/2020 7:42 EDT [facility] Hemoglobin 14.1 11.6 - 15.2 gm/dL 03/10/2020 7:42 T [facility] HCT 41.4 34.9 - 44.4 % 03/10/2020 7:42 T [facility] MCV 90 81 - 98 fl 03/10/2020 7:42 EDT [facility] MCH 30.6 26.7 - 33.3 pg 03/10/2020 7:42 EDT [facility] MCHC 34.1 32.1 - 35.9 gm/dL 03/10/2020 7:42 EDT [facility] RDW-CV 12.3 <14.7 % 03/10/2020 7:42 EDT [facility] RDW-SD 40.3 <50.4 fl 03/10/2020 7:42 EDT [facility] PLT 424(H) 141 - 377 K/cmm 03/10/2020 7:42 EDT [facility] MPV 9.8 9.5 - 12.7 fl 03/10/2020 7:42 EDT [facility] Blood VENOUS BLOOD / Unknown Venipuncture / Unknown 03/10/2020 7:01 EDT 03/10/2020 7:35 EDT Adair Martinez PA-C HEMATOLOGY & PF4 ORD ERABLES Performing Organization Address [facility] Co de Phone Number [facility] [address] [place] [address] * (ABNORMAL) CREATININE (03/10/2020 7:01 EDT) Creatinine 0.50(L) 0.52 - 1.04 mg/dL 03/10/2020 8:04 EDT [facility] eGFR 127 >60 mL/min/1.7 3m2 03/10/2020 8:04 EDT [facility] Comment:eGFR calculated usbrie g CKD-EPI equation for non- Americans. Multiply eGFR by 1.16 for patients. Blood VENOUS BLOOD / Unknown Venipuncture / Unknown 03/10/2020 7:01 EDT 03/10/2020 7:35 EDT Adair Martinez PA-C CHEMISTRY & BLOOD GA S ORDERABLES Performing Organization Address [facility] Co de Phone Number [facility] [address] [place] [address] * (ABNORMAL) POCT GLUCOSE, INTERFACED (03/09/2020 22:50 EDT) Glucose, POC 150(H) 70 - 100 mg/dL 03/09/2020 22:51 EDT [facility] basic sciences professor ID [id number] 03/09/2020 22:51 EDT [facility] HN LAB POC COMMENT (GLUCOSE) Test Performed by Nursing Services 03/09/2020 22:51 EDT [facility] Blood CAPILLARY BLOOD / Unknown 03/09/2020 22:50 EDT 03/09/2020 22:51 EDT Catherine Booth MD POINT OF CARE TEST ORDERABLES [facility] [address] [place] [address] * MR FOOT W WO CONTRAST LEFT (03/09/2020 22:38 EDT) Anatomical Region Laterality Modality Lower Extremities Left Magnetic Reson ance 03/10/2020 9:18 EDT Impressions 03/10/2020 9:18 EDT 1. ??Soft tissue ulceration on the plantar aspect of the great toe with evidence of osteomyelitis in the 1st distal phalanx and possibly early osteomyelitis in the head of the 1st proximal phalanx as well. 2. ??Mild cellulitis in the soft tissues in this region without organizing or drainable fluid collection. 3. ??Complete tear of the flexor hallucis longus tendon from its distal attachment with retraction to the level of the mid shaft of the 1st proximal phalanx. 4. ??Subacute on chronic denervation changes in the imaged intrinsic musculature of the left forefoot. I have personally reviewed the images and the above interpretation and agree with the findings. Narrative 03/10/2020 9:18 EDT MR FOOT W WO CONTRAST LEFT ??03/09/2020 9:10 PM SIGNS AND SYMPTOMS/COMMENTS: Diabetic foot infection. ongoing purulent drainage. Rule out abscess / extension COMPARISON: Radiographs of the left foot from 03/07/2020 TECHNIQUE: Multiplanar, multisequence MR images of the left forefoot were obtained with and without contrast. FINDINGS: There is a small ulceration on the plantar aspect of the great toe approximating the level of the interphalangeal joint. There is susceptibility artifact in this region presumably related to micrometallic debris from recent debridement. There is edematous thickening of underlying and adjacent soft tissues compatible with cellulitis. No organizing or drainable fluid collection is identified. There is edema-like marrow signal change throughout the proximal and distal phalanges of the great toe. Additionally, there is loss of the cortex and small area of hypointense T1 signal in the marrow along the plantar base of the 1st distal phalanx, findings compatible with osteomyelitis. Assessment of the distal aspect of the toe is limited on the postcontrast sequences due to artifact, however there is evidence of enhancement in the distal phalanx and the distal aspect of the proximal phalanx. Assessment of remaining osseous structures demonstrates scattered degenerative changes. These changes are severe in the 1st MTP joint and there is a chronic osteochondral lesion on the head of the 1st metatarsal. There is edema-like marrow signal in the tarsal navicular, middle cuneiform, and in the bases of the 2nd and 3rd metatarsals which may be reactive due to arthritic changes or corresponding to stress related injury in these locations. No discrete fracture line is identified. Assessment of the intrinsic musculature in the imaged portion of the forefoot demonstrates diffusely increased intramuscular T2 signal on a background of mild diffuse atrophy and fatty infiltration, findings compatible with subacute on chronic denervation changes in the setting of diabetic neuropathy. The flexor tendon to the great toe is noted to be completely torn and retracted to the level of the mid shaft of the proximal phalanx (sagittal #8). There is reactive flexor hallux longus tenosynovitis. Procedure Note Zak Maya, DO - 03/10/2020 MR FOOT W WO CONTRAST LEFT 03/09/2020 9:10 PM SIGNS AND SYMPTOMS/COMMENTS: Diabetic foot infection. ongoing purulentdrainage. Rule out abscess / extension COMPARISON: Radiographs of the left foot from 03/07/2020 TECHNIQUE: Multiplanar, multisequence MR images of the left forefoot wereobtained with and without contrast. FINDINGS: There is a small ulceration on the plantar aspect of the great toeapproximating the level of the interphalangeal joint. There issusceptibility artifact in this region presumably related to micrometallicdebris from recent debridement. There is edematous thickening ofunderlying and adjacent soft tissues compatible with cellulitis. Noorganizing or drainable fluid collection is identified. There is edema-like marrow signal change throughout the proximal anddistal phalanges of the great toe. Additionally, there is loss of thecortex and small area of hypointense T1 signal in the marrow along theplantar base of the 1st distal phalanx, findings compatible withosteomyelitis. Assessment of the distal aspect of the toe is limited onthe postcontrast sequences due to artifact, however there is evidence ofenhancement in the distal phalanx and the distal aspect of the proximalphalanx. Assessment of remaining osseous structures demonstrates scattereddegenerative changes. These changes are severe in the 1st MTP joint andthere is a chronic osteochondral lesion on the head of the 1st metatarsal.There is edema-like marrow signal in the tarsal navicular, middlecuneiform, and in the bases of the 2nd and 3rd metatarsals which may bereactive due to arthritic changes or corresponding to stress relatedinjury in these locations. No discrete fracture line is identified. Assessment of the intrinsic musculature in the imaged portion of theforefoot demonstrates diffusely increased intramuscular T2 signal on abackground of mild diffuse atrophy and fatty infiltration, findingscompatible with subacute on chronic denervation changes in the setting ofdiabetic neuropathy. The flexor tendon to the great toe is noted to be completely torn andretracted to the level of the mid shaft of the proximal phalanx (sagittal#8). There is reactive flexor hallux longus tenosynovitis. IMPRESSION 1. Soft tissue ulceration on the plantar aspect of the great toe withevidence of osteomyelitis in the 1st distal phalanx and possibly earlyosteomyelitis in the head of the 1st proximal phalanx as well. 2. Mild cellulitis in the soft tissues in this region without organizingor drainable fluid collection. 3. Complete tear of the flexor hallucis longus tendon from its distalattachment with retraction to the level of the mid shaft of the 1stproximal phalanx. 4. Subacute on chronic denervation changes in the imaged intrinsicmusculature of the left forefoot. I have personally reviewed the images and the above interpretation andagree with the findings. Adair Martinez PA-C IMG MRI ORDERABLES * (ABNORMAL) POCT GLUCOSE, INTERFACED (03/09/2020 17:21 EDT) Glucose, POC 201(H) 70 - 100 mg/dL 03/09/2020 17:22 EDT [facility] basic sciences professor ID [id number] 03/09/2020 17:22 EDT [facility] HN LAB POC COMMENT (GLUCOSE) Test Performed by Nursing Services 03/09/2020 17:22 EDT [facility] Blood CAPILLARY BLOOD / Unknown 03/09/2020 17:21 EDT 03/09/2020 17:22 EDT Catherine Booth MD POINT OF CARE TEST ORDERABLES Performing Organization Address City/[facility]/ZIP Co de Phone Number [facility] [address] [place] [address] * (ABNORMAL) POCT GLUCOSE, INTERFACED (03/09/2020 13:23 EDT) Glucose, POC 178(H) 70 - 100 mg/dL 03/09/2020 13:24 EDT [facility] basic sciences professor ID [id number] 03/09/2020 13:24 EDT [facility] HN LAB POC COMMENT (GLUCOSE) Test Performed by Nursing Services 03/09/2020 13:24 EDT [facility] Blood CAPILLARY BLOOD / Unknown 03/09/2020 13:23 EDT 03/09/2020 13:24 EDT Catherine Booth MD POINT OF CARE TEST ORDERABLES Performing Organization Address [facility] Co de Phone Number [facility] [address] [place] [id number] * (ABNORMAL) POCT GLUCOSE, INTERFACED (03/09/2020 8:38 EDT) Glucose, POC 108(H) 70 - 100 mg/dL 03/09/2020 8:43 EDT [facility] basic sciences professor ID [id number] 03/09/2020 8:43 EDT [facility] HN LAB POC COMMENT (GLUCOSE) Test Performed by Nursing Services 03/09/2020 8:43 EDT [facility] Blood CAPILLARY BLOOD / Unknown 03/09/2020 8:38 EDT 03/09/2020 8:43 EDT Catherine Booth MD POINT OF CARE TEST ORDERABLES [facility] [address] [place] [address] * (ABNORMAL) POCT GLUCOSE, INTERFACED (03/08/2020 20:52 EDT) Glucose, POC 122(H) 70 - 100 mg/dL 03/08/2020 20:58 EDT [facility] basic sciences professor ID [id number] 03/08/2020 20:58 EDT [facility] HN LAB POC COMMENT (GLUCOSE) Test Performed by Nursing Services 03/08/2020 20:58 EDT [facility] Blood CAPILLARY BLOOD / Unknown 03/08/2020 20:52 EDT 03/08/2020 20:58 EDT Catherine Booth MD POINT OF CARE TEST ORDERABLES Performing Organization Address [facility]/ZIP Co de Phone Number [facility] [address] [place] [address] * POCT GLUCOSE, INTERFACED (03/08/2020 17:44 EDT) Glucose, POC 99 70 - 100 mg/dL 03/08/2020 17:44 EDT [facility] basic sciences professor ID [id number] 03/08/2020 17:44 EDT [facility] HN LAB POC COMMENT (GLUCOSE) Test Performed by Nursing Services 03/08/2020 17:44 EDT [facility] Blood CAPILLARY BLOOD / Unknown 03/08/2020 17:44 EDT 03/08/2020 17:44 EDT Catherine Booth MD POINT OF CARE TEST ORDERABLES [facility] [address] [place] [address] * (ABNORMAL) POCT GLUCOSE, INTERFACED (03/08/2020 13:15 EDT) Glucose, POC 142(H) 70 - 100 mg/dL 03/08/2020 13:16 EDT [facility] basic sciences professor ID [id number] 03/08/2020 13:16 EDT [facility] HN LAB POC COMMENT (GLUCOSE) Test Performed by Nursing Services 03/08/2020 13:16 EDT [facility] Blood CAPILLARY BLOOD / Unknown 03/08/2020 13:15 EDT 03/08/2020 13:16 EDT Catherine Booth MD POINT OF CARE TEST ORDERABLES Performing Organization Address City/[facility]/ZIP Co de Phone Number [facility] [address] [place] [address] * (ABNORMAL) POCT GLUCOSE, INTERFACED (03/08/2020 7:45 EDT) Glucose, POC 176(H) 70 - 100 mg/dL 03/08/2020 7:47 EDT [facility] basic sciences professor ID [id number] 03/08/2020 7:47 EDT [facility] HN LAB POC COMMENT (GLUCOSE) Test Performed by Nursing Services 03/08/2020 7:47 EDT [facility] Blood CAPILLARY BLOOD / Unknown 03/08/2020 7:45 EDT 03/08/2020 7:47 EDT Catherine Booth MD POINT OF CARE TEST ORDERABLES Performing Organization Address City/[facility] Co de Phone Number [facility] [address] [place] [phone] * (ABNORMAL) CREATININE (03/08/2020 7:20 EDT) Creatinine 0.42(L) 0.52 - 1.04 mg/dL 03/08/2020 9:12 EDT [facility] eGFR 134 >60 mL/min/1.7 3m2 03/08/2020 9:12 EDT [facility] Comment:eGFR calculated gil curtis CKD-EPI equation for non- Americans. Multiply eGFR by 1.16 for patients. Blood VENOUS BLOOD / Unknown Venipuncture / Unknown 03/08/2020 7:20 EDT 03/08/2020 8:43 EDT Adair Martinez PA-C CHEMISTRY & BLOOD GA S ORDERABLES Performing Organization Address [facility] Co de Phone Number [facility] [address] [place] [address] * ELECTROLYTES (03/08/2020 7:20 EDT) Sodium 139 136 - 145 mEq/L 03/08/2020 9:12 EDT [facility] Potassium 4.6 3.5 - 5.0 mEq/L 03/08/2020 9:12 EDT [facility] Chloride 105 96 - 110 mEq/L 03/08/2020 9:12 EDT [facility] CO2 Total 25 22 - 32 mEq/L 03/08/2020 9:12 EDT [facility] Blood VENOUS BLOOD / Unknown Venipuncture / Unknown 03/08/2020 7:20 EDT 03/08/2020 8:43 EDT Adair Martinez PA-C CHEMISTRY & BLOOD GA S ORDERABLES Performing Organization Address [facility] Co de Phone Number [facility] [address] [place] [address] * (ABNORMAL) COMPLETE BLOOD COUNT (03/08/2020 7:20 EDT) WBC 11.24 4.00 - 12.40 K/cmm 03/08/2020 8:25 EDT [facility] RBC 4.29 3.86 - 5.04 M/cmm 03/08/2020 8:25 EDT [facility] Hemoglobin 13.2 11.6 - 15.2 gm/dL 03/08/2020 8:25 EDT [facility] HCT 37.9 34.9 - 44.4 % 03/08/2020 8:25 EDT [facility] MCV 88 81 - 98 fl 03/08/2020 8:25 EDT [facility] MCH 30.8 26.7 - 33.3 pg 03/08/2020 8:25 EDT [facility] MCHC 34.8 32.1 - 35.9 gm/dL 03/08/2020 8:25 EDT [facility] RDW-CV 12.3 <14.7 % 03/08/2020 8:25 EDT [facility] RDW-SD 39.5 <50.4 fl 03/08/2020 8:25 EDT [facility] PLT 406(H) 141 - 377 K/cmm 03/08/2020 8:25 EDT [facility] MPV 9.9 9.5 - 12.7 fl 03/08/2020 8:25 EDT [facility] Blood VENOUS BLOOD / Unknown Venipuncture / Unknown 03/08/2020 7:20 EDT 03/08/2020 8:11 EDT Adair Martinez PA-C HEMATOLOGY & PF4 ORD ERABLES Performing Organization Address City/[facility]/ZIP Co de Phone Number [facility] [address] [place] [address] * VANCOMYCIN TROUGH (03/07/2020 21:29 EDT) Pathologist [facility] Vancomycin Trough 13.0 10.0 - 20.0 ug/mlL 03/07/2020 22:02 EDT [facility] Draw Type Not Given 03/07/2020 22:02 EDT [facility] Blood VENOUS BLOOD / Unknown Venipuncture / Unknown 03/07/2020 21:29 EDT 03/07/2020 21:33 EDT Cal Jenkins [facility] CHEMISTRY & BLOOD GAS ORDERABLES [facility] [address] [place] [address] * (ABNORMAL) POCT GLUCOSE, INTERFACED (03/07/2020 21:25 EDT) Glucose, POC 105(H) 70 - 100 mg/dL 03/07/2020 21:30 EDT [facility] basic sciences professor ID [id number] 03/07/2020 21:30 EDT [facility] HN LAB POC COMMENT (GLUCOSE) Test Performed by Nursing Services 03/07/2020 21:30 EDT [facility] Blood CAPILLARY BLOOD / Unknown 03/07/2020 21:25 EDT 03/07/2020 21:30 EDT Catherine Booth MD POINT OF CARE TEST ORDERABLES Performing Organization Address [facility] Co de Phone Number [facility] [address] [place] [address] * (ABNORMAL) POCT GLUCOSE, INTERFACED (03/07/2020 17:40 EDT) Glucose, POC 196(H) 70 - 100 mg/dL 03/07/2020 18:59 EDT [facility] basic sciences professor ID [id number] 03/07/2020 18:59 EDT [facility] HN LAB POC COMMENT (GLUCOSE) Test Performed by Nursing Services 03/07/2020 18:59 EDT [facility] Blood CAPILLARY BLOOD / Unknown 03/07/2020 17:40 EDT 03/07/2020 18:59 EDT Catherine Booth MD POINT OF CARE TEST ORDERABLES Performing Organization Address [facility] Co de Phone Number [facility] [address] [place] [address] * (ABNORMAL) ANAEROBE CULTURE/SMEAR(INC. AEROBES), OTHER (03/07/2020 14:21 EDT) Organism ID Few Staphylococcus aureus(A) 03/13/2020 7:50 EDT [facility] Comment:Susceptible to nafci llin, cephalosporins and other beta lactam antibiotics (mecA gene product absent). Organism ID Few Streptococcus agalactiae(A) 03/13/2020 7:50 EDT [facility] Comment:Penicillin and ampic illin are drugs of choice for treatment of beta hemolytic streptococcal infections. Organism ID Few Streptococcus anginosus(A) 03/13/2020 7:50 EDT [facility] Organism ID Moderate Prevotella bivia(A) 03/13/2020 7:50 EDT [facility] Smear Few Neutrophils Present(A) 03/13/2020 7:50 EDT [facility] Smear Few Gram Positive Cocci(A) 03/13/2020 7:50 EDT [facility] Bone ENTIRE TOE / Unknown 03/07/2020 14:21 EDT 03/07/2020 18:33 EDT Narrative Organism Antibiotic Method Susceptibility Staphylococcus aureus Cefazolin VITEK SUSCEPTIBILIT Y Deduced Susceptible Staphylococcus aureus Clindamycin VITEK SUSCEPTIBILIT Y 0.25 ug/mL: Susceptible Staphylococcus aureus Erythromycin VITEK SUSCEPTIBILIT Y >=8 ug/mL: Resistant Staphylococcus aureus Oxacillin VITEK SUSCEPTIBILIT Y 0.5 ug/mL: Susceptible Staphylococcus aureus Trimethoprim-Sulfa me thoxazole VITEK SUSCEPTIBILITY <=10 ug/mL: Susceptible Staphylococcus aureus Tetracycline VITEK SUSCEPTIBILIT Y <=1 ug/mL: Susceptible Staphylococcus aureus Vancomycin VITEK SUSCEPTIBILIT Y 1 ug/mL: Susceptible Adair Martinez PA-C MICROBIOLOGY - GENER AL ORDERABLES [facility] [address] [place] [address] * XR FOOT LEFT 3 OR MORE VIEWS (03/07/2020 13:38 EDT) Anatomical Region Laterality Modality Lower Extremities Left Computed Radio graphy 03/07/2020 15:3 5 EDT Impressions 03/07/2020 15:35 EDT 1. No radiographic evidence of osteomyelitis. If there is clinical concern for osteomyelitis, an MRI should be obtained for further evaluation. I have personally reviewed the images and the above interpretation and agree with the findings. Narrative 03/07/2020 15:35 EDT XR FOOT LEFT 3 OR MORE VIEWS 03/07/2020 12:55 PM History: great toe swelling with purulent drainage Technique: 3 views of the left foot were obtained. Comparisons: X-rays from March 04, 2020 and January 01, 2020 Findings: 3 views of the left foot show no evidence of acute fracture or dislocation. The location of the patient's soft tissue ulceration is partially obscured by the overlying digits on lateral view. No clear cortical erosion is identified. Calcification overlying the dorsum of the ureter foot, likely vascular in nature. There are enthesopathic changes, predominantly along the insertion site of the plantar fascia. Note of a type II os navicularis is made. Procedure Note Rigo Hightower MD - 03/07/2020 XR FOOT LEFT 3 OR MORE VIEWS 03/07/2020 12:55 PM History: great toe swelling with purulent drainage Technique: 3 views of the left foot were obtained. Comparisons: X-rays from March 04, 2020 and January 01, 2020 Findings: 3 views of the left foot show no evidence of acute fracture ordislocation. The location of the patient's soft tissue ulceration ispartially obscured by the overlying digits on lateral view. No clearcortical erosion is identified. Calcification overlying the dorsum of theureter foot, likely vascular in nature. There are enthesopathic changes,predominantly along the insertion site of the plantar fascia. Note of atype II os navicularis is made. IMPRESSION 1. No radiographic evidence of osteomyelitis. If there is clinical concernfor osteomyelitis, an MRI should be obtained for further evaluation. I have personally reviewed the images and the above interpretation andagree with the findings. Carrington Mari MD IMG DIAGNOSTIC IMAGI NG ORDERABLES * (ABNORMAL) POCT GLUCOSE, INTERFACED (03/07/2020 12:23 EDT) Glucose, POC 186(H) 70 - 100 mg/dL 03/07/2020 12:26 EDT [facility] basic sciences professor ID [id number] 03/07/2020 12:26 EDT [facility] HN LAB POC COMMENT (GLUCOSE) Test Performed by Nursing Services 03/07/2020 12:26 EDT [facility] Blood CAPILLARY BLOOD / Unknown 03/07/2020 12:23 EDT 03/07/2020 12:26 EDT Cal GARIBAY POINT OF CAR E TEST ORDERABLES [facility] [address] [place] [address] * (ABNORMAL) POCT GLUCOSE, INTERFACED (03/07/2020 11:11 EDT) Glucose, POC 187(H) 70 - 100 mg/dL 03/07/2020 11:21 EDT [facility] basic sciences professor ID [id number] 03/07/2020 11:21 EDT [facility] HN LAB POC COMMENT (GLUCOSE) Test Performed by Nursing Services 03/07/2020 11:21 EDT [facility] Blood CAPILLARY BLOOD / Unknown 03/07/2020 11:11 EDT 03/07/2020 11:21 EDT Catherine Booth MD POINT OF CARE TEST ORDERABLES Performing Organization Address City/[facility]/ZIP Co de Phone Number [facility] [address] [place] [address] * (ABNORMAL) POCT GLUCOSE, INTERFACED (03/07/2020 7:37 EDT) Glucose, POC 157(H) 70 - 100 mg/dL 03/07/2020 7:41 EDT [facility] basic sciences professor ID [id number] 03/07/2020 7:41 EDT [facility] HN LAB POC COMMENT (GLUCOSE) Test Performed by Nursing Services 03/07/2020 7:41 EDT [facility] Blood CAPILLARY BLOOD / Unknown 03/07/2020 7:37 EDT 03/07/2020 7:41 EDT Catherine Booth MD POINT OF CARE TEST ORDERABLES Performing Organization Address City/[facility]/ZIP Co de Phone Number [facility] [address] [place] [address] * ELECTROLYTES (03/07/2020 7:02 EDT) Sodium 138 136 - 145 mEq/L 03/07/2020 8:22 EDT [facility] Potassium 4.2 3.5 - 5.0 mEq/L 03/07/2020 8:22 EDT [facility] Chloride 103 96 - 110 mEq/L 03/07/2020 8:22 EDT [facility] CO2 Total 27 22 - 32 mEq/L 03/07/2020 8:22 EDT [facility] Blood VENOUS BLOOD / Unknown Venipuncture / Unknown 03/07/2020 7:02 EDT 03/07/2020 7:46 EDT Catherine Booth MD CHEMISTRY & BLOOD GAS ORDERABLES Performing Organization Address City/[facility]/ZIP Co de Phone Number [facility] [address] [place] [address] * (ABNORMAL) CREATININE (03/07/2020 7:02 EDT) Creatinine 0.44(L) 0.52 - 1.04 mg/dL 03/07/2020 8:22 EDT [facility] eGFR 132 >60 mL/min/1.7 3m2 03/07/2020 8:22 EDT [facility] Comment:eGFR calculated gil curtis CKD-EPI equation for non- Americans. Multiply eGFR by 1.16 for patients. Blood VENOUS BLOOD / Unknown Venipuncture / Unknown 03/07/2020 7:02 EDT 03/07/2020 7:46 EDT Catherine Booth MD CHEMISTRY & BLOOD GAS ORDERABLES Performing Organization Address City/[facility]/ZIP Co de Phone Number [facility] [address] [place] [phone] * BUN (03/07/2020 7:02 EDT) BUN 10 10 - 26 mg/dL 03/07/2020 8:22 EDT [facility] Blood VENOUS BLOOD / Unknown Venipuncture / Unknown 03/07/2020 7:02 EDT 03/07/2020 7:46 EDT Catherine Booth MD CHEMISTRY & BLOOD GAS ORDERABLES [facility] [address] [place] [address] * (ABNORMAL) COMPLETE BLOOD COUNT (03/07/2020 7:02 EDT) WBC 11.29 4.00 - 12.40 K/cmm 03/07/2020 7:55 [facility] RBC 4.29 3.86 - 5.04 M/cmm 03/07/2020 7:55 [facility] Hemoglobin 13.0 11.6 - 15.2 gm/dL 03/07/2020 7:55 [facility] HCT 37.2 34.9 - 44.4 % 03/07/2020 7:55 [facility] MCV 87 81 - 98 fl 03/07/2020 7:55 [facility] MCH 30.3 26.7 - 33.3 pg 03/07/2020 7:55 [facility] MCHC 34.9 32.1 - 35.9 gm/dL 03/07/2020 7:55 [facility] RDW-CV 12.2 <14.7 % 03/07/2020 7:55 [facility] RDW-SD 38.5 <50.4 fl 03/07/2020 7:55 [facility] PLT 387(H) 141 - 377 K/cmm 03/07/2020 7:55 [facility] MPV 10.0 9.5 - 12.7 fl 03/07/2020 7:55 [facility] Blood VENOUS BLOOD / Unknown Venipuncture / Unknown 03/07/2020 7:02 EDT 03/07/2020 7:49 EDT Catherine Booth MD HEMATOLOGY & PF4 O RDERABLES [facility] [address] [place] [address] * (ABNORMAL) POCT GLUCOSE, INTERFACED (03/06/2020 23:53 EDT) Glucose, POC 262(H) 70 - 100 mg/dL 03/06/2020 23:57 EDT [facility] basic sciences professor ID [id number] 03/06/2020 23:57 [facility] HN LAB POC COMMENT (GLUCOSE) Test Performed by Nursing Services 03/06/2020 23:57 EDT [facility] Blood CAPILLARY BLOOD / Unknown 03/06/2020 23:53 EDT 03/06/2020 23:57 EDT Carrington Padilla MD POINT OF CARE TEST ORDERABLES Performing Organization Address [facility]/ZIP Co de Phone Number [facility] [address] [place] [address] * COVID-19 TEST [facility] PCR (03/06/2020 22:00 EDT) Swab ENTIRE NASOPHARYNX / Unknown Swab / Unknown 03/06/2020 22:00 EDT 03/06/2020 22:05 EDT Siobhan Hare PA-C MICROBIOLOGY - GENERAL ORDERABLES Performing Organization Address [facility]/ZIP Co de Phone Number [facility] [address] [place] [phone] * COVID-19 TESTING (03/06/2020 22:00 EDT) COVID-19 rt-PCR Result Negative Negative 03/07/2020 1:27 EDT [facility] Comment: This test has [...] history, and epidemiological information. Performed on the Footfall123 Fusion instrument Performing Lab [place] [facility] 03/07/2020 1:27 EDT [facility] Swab ENTIRE NASOPHARYNX / Unknown Swab / Unknown 03/06/2020 22:00 EDT 03/06/2020 22:05 EDT Siobhan Hare PA-C MICROBIOLOGY - GENERAL ORDERABLES Performing Organization Address City/[facility]/ZIP Co de Phone Number [facility] [address] [place] [address] * (ABNORMAL) FRUCTOSAMINE (03/06/2020 19:26 EDT) Fructosamine, S 360(H) 200 - 285 mcmol/L 03/09/2020 8:44 EDT [facility] Comment: Test Performed by: [facility] [address] [address] [facility]: Wiley Fry M.D. Ph.D.; CLIA# [id number] Blood VENOUS BLOOD / Unknown Venipuncture / Unknown 03/06/2020 19:26 EDT 03/06/2020 19:48 EDT Catherine Booth MD CHEMISTRY & BLOOD GAS ORDERABLES Performing Organization Address [facility] Co de Phone Number [facility] [address] [place] [phone] * (ABNORMAL) HEMOGLOBIN A1C (03/06/2020 19:26 EDT) Hemoglobin A1c 10.4(H) <5.7 % 03/07/2020 8:23 EDT [facility] Comment: Glycemic Status References: Normal: ??<5.7% Pre-Diabetes: ??5.7% - 6.4% Diagnostic of Diabetes: ??> or = 6.5% (if confirmed) Goals for glycemic control in diabetics (ADA 2017): <7.0% target for non adults with diabetes. <7.5% target for children and adolescents with Type I Diabetes. More or less stringent targets may be appropriate for individual patients. Est Avg Glucose 252 mg/dL 0 8:23 EDT [facility] Comment:The eAG represents t he A1c result expressed as average glucose in mg/dL. Blood VENOUS BLOOD / Unknown Venipuncture / Unknown 03/06/2020 19:26 EDT 03/06/2020 19:48 EDT Catherine Booth MD CHEMISTRY & BLOOD GAS ORDERABLES Performing Organization Address City/[facility]/ZIP Co de Phone Number [facility] [address] [place] [address] * (ABNORMAL) SED. RATE:WESTERGREN (03/06/2020 19:26 EDT) Sed Rate 25(H) 0 - 20 mm/hr 03/06/2020 23:03 EDT [facility] Blood VENOUS BLOOD / Unknown Venipuncture / Unknown 03/06/2020 19:26 EDT 03/06/2020 19:48 EDT Siobhan Hare PA-C HEMATOLOGY & PF4 ORDERABLES Performing Organization Address [facility] Co de Phone Number [facility] [address] [place] [address] * (ABNORMAL) C REACTIVE PROTEIN (03/06/2020 19:26 EDT) C-Reactive Protein 27.7(H) <10.0 mg/L 03/06/2020 20:12 EDT [facility] Blood VENOUS BLOOD / Unknown Venipuncture / Unknown 03/06/2020 19:26 EDT 03/06/2020 19:48 EDT Siobhan Hare PA-C CHEMISTRY & BLOOD GAS ORDERABLES Performing Organization Address City/[facility]/ZIP Co de Phone Number [facility] [address] [place] [address] * (ABNORMAL) COMPREHENSIVE METABOLIC PANEL (CMP) (03/06/2020 19:26 [facility]) Sodium 139 136 - 145 mEq/L 03/06/2020 20:12 [facility] Potassium 4.2 3.5 - 5.0 mEq/L 03/06/2020 20:12 [facility] Chloride 101 96 - 110 mEq/L 03/06/2020 20:12 [facility] CO2 Total 27 22 - 32 mEq/L 03/06/2020 20:12 [facility] Glucose 186(H) 70 - 100 mg/dL 03/06/2020 20:12 [facility] BUN 13 10 - 26 mg/dL 03/06/2020 20:12 [facility] Creatinine 0.49(L) 0.52 - 1.04 mg/dL 03/06/2020 20:12 [facility] eGFR 128 >60 mL/min/1.7 3m2 03/06/2020 20:12 [facility] Comment:eGFR calculated gil curtis CKD-EPI equation for non- Americans. Multiply eGFR by 1.16 for patients. Total Protein 7.4 6.3 - 8.2 g/dL 03/06/2020 20:12 [facility] Albumin 4.2 3.4 - 4.9 g/dL 03/06/2020 20:12 [facility] Alkaline Phosphatase 108 38 - 126 U/L 03/06/2020 20:12 [facility] AST 18 15 - 46 U/L 03/06/2020 20:12 [facility] ALT 12 <35 U/L 03/06/2020 20:12 [facility] Bilirubin, Total <0.5 <1.4 mg/dL 03/06/20 20:12 [facility] Calcium 9.9 8.5 - 10.5 mg/dL 03/06/2020 20:12 [facility] Calculated Calcium 9.7 8.5 - 10.5 mg/dL 03/06/2020 20:12 [facility] Blood VENOUS BLOOD / Unknown Venipuncture / Unknown 03/06/2020 19:26 EDT 03/06/2020 19:48 EDT Siobhan Hare PA-C CHEMISTRY & BLOOD GAS ORDERABLES [facility] [address] [place] [address] * (ABNORMAL) COMPLETE BLOOD COUNT AND DIFFERENTIAL (03/06/2020 19:26 EDT) WBC 16.83(H) 4.00 - 12.40 K/cmm 03/06/2020 19:57 EDT [facility] RBC 4.66 3.86 - 5.04 M/cmm 03/06/2020 19:57 [facility] Hemoglobin 14.1 11.6 - 15.2 gm/dL 03/06/2020 19:57 [facility] HCT 40.6 34.9 - 44.4 % 03/06/2020 [facility] MCV 87 81 - 98 fl 03/06/2020 19:57 [facility] MCH 30.3 26.7 - 33.3 pg 03/06/2020 19:57 EDT [facility] MCHC 34.7 32.1 - 35.9 gm/dL 03/06/2020 19:57 [facility] RDW-CV 12.2 <14.7 % 03/06/2020 19:57 T [facility] RDW-SD 39.2 <50.4 fl 03/06/2020 19:57 T [facility] PLT 458(H) 141 - 377 K/cmm 03/06/2020 19:57 [facility] MPV 9.7 9.5 - 12.7 fl 03/06/2020 19:57 [facility] % Neutrophils 62.7 % 03/06/2020 19:57 [facility] % Lymphocytes 27.5 % 03/06/2020 19:57 [facility] % Monocytes 6.8 % 03/06/2020 19:57 [facility] % Eosinophils 2.2 % 03/06/2020 19:57 [facility] % Basophils 0.4 % 03/06/2020 19:57 [facility] % Immature Grans 0.4 % 03/06/20 19:57 [facility] Absolute Neutrophils 10.55(H) 2.20 - 8.85 K/cmm 03/06/2020 19:57 [facility] Absolute Lymphocytes 4.62(H) 1.09 - 3.30 K/cmm 03/06/2020 19:57 [facility] Absolute Monocytes 1.15(H) 0.10 - 0.80 K/cmm 03/06/2020 19:57 [facility] Absolute Eosinophils 0.37 0.03 - 0.61 K/cmm 03/06/2020 19:57 [facility] ABS Basophils 0.07 0.01 - 0.11 K/cmm 03/06/2020 19:57 [facility] Absolute Immature Grans 0.07(H) 0.00 - 0.06 K/cmm 03/06/2020 19:57 [facility] Type of Differential: Auto 03/06/2020 19:57 [facility] Blood VENOUS BLOOD / Unknown Venipuncture / Unknown 03/06/2020 19:26 EDT 03/06/2020 19:48 EDT Siobhan Hare PA-C PACKAGES & D NA PROBE ORDERABLES [facility] [address] [place] [address] documented in this encounter Visit Diagnoses Diagnosis Osteomyelitis of great toe of left foot (HCC-CMS)- Primary Diabetic foot ulcer (HCC-CMS) Type II or unspecified type diabetes mellitus with other specified manifestations, not stated as uncontrolled Diabetic foot infection (HCC-CMS) Type II or unspecified type diabetes mellitus with other specified manifestations, not stated as uncontrolled Osteomyelitis of great toe of left foot (HCC-CMS) 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, 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 (HCC-CMS) Diabetic foot ulcer (HCC-CMS) Type II or unspecified type diabetes mellitus with other specified manifestations, not stated as uncontrolled documented in this encounter Administered Medications Inactive Administered Medications - up to 3 most recent administrations Medication Order MAR Action Action Date Dose Rate Site alteplase (CATHFLO ACTIVASE) injection 2 mg 2 mg, intercatheter, PRN, Starting on Tu03/11/20 at 0954, Until Tue03/12/20 at 1407, Line Care, Routine ceFAZolin in dextrose (iso-os) piggyback 2 g/100 mL 2,000 mg, intravenous, Administer over 30 Minutes, EVERY 8 HOURS, 21 doses, First dose on Tue03/09/20 at 1230, Last dose on Tue03/16/20 at 0800, Type of Therapy: Empiric, Suspected Indication (Select all that apply): Purulent cellulitis (no history of MRSA), ID Consult: Yes, ID Consult Type: Formal ID Consult, ID Provider Consulted: Zoe Murray MD, Routine Given 03/12/2020 8:37 EDT 2,000 mg Given 03/12/2020 1:03 EDT 2,000 mg Given 03/11/2020 16:08 EDT 2,000 mg enoxaparin (LOVENOX) injection 30 mg 30 mg, subcutaneous, EVERY 12 HOURS, First dose on Renee 03/06/20 at 2245, Until Discontinued, Routine Given 03/07/2020 0:03 EDT 30 mg enoxaparin (LOVENOX) injection 40 mg 40 mg, subcutaneous, DAILY, First dose (after last modification) on Tue03/07/20 at 0900, Until Discontinued, Routine Given 03/12/2020 8:38 EDT 40 mg Given 03/11/2020 8:44 EDT 40 mg Given 03/10/2020 8:59 EDT 40 mg gadobutroL (GADAVIST PFS) solution solution 1-15 mmol 1-15 mmol (1-15 mL), intravenous, Once in imaging, 1 dose, Starting on Tue03/09/20 at 2229, Until 03/09/20 at 2229, Routine, Imaging Protocol Orders Given 03/09/2020 22:29 EDT 9 mL insulin aspart U-100 (NOVOLOG FLEXPEN) injection 9 Units 9 Units (rounded from 8.98 Units = 0.1 Units/kg ? 89.8 kg), subcutaneous, 3 TIMES DAILY WITH MEALS, First dose on Tue03/07/20 at 0800, Until Discontinued, Routine Given 03/12/2020 8:52 EDT 9 Units Given 03/11/2020 18:00 EDT 9 Units Given 03/11/2020 12:16 EDT 9 Units insulin aspart U-100 (NOVOLOG FLEXPEN) injection subcutaneous, 3 TIMES DAILY WITH MEALS, First dose on Tue03/07/20 at 0800, Until Discontinued, Routine Given 03/12/2020 8:52 EDT 2 Units Given 03/11/2020 17:58 EDT 2 Units Given 03/11/2020 12:13 EDT 3 Units insulin glargine (LANTUS SOLOSTAR) injection pen 30 Units 30 Units, subcutaneous, AT BEDTIME, First dose on Tue03/07/20 at 0000, Until Discontinued, Routine Given 03/11/2020 22:35 EDT 30 Units Given 03/10/2020 21:29 EDT 30 Units Given 03/09/2020 22:51 EDT 30 Units lidocaine (PF) 10 mg/mL (1 %) injection 5 mg 5 mg, intradermal, PRN, 2 doses, Starting on Tue03/11/20 at 0954, Until Tue03/12/20 at 1407, line placement, Routine lidocaine 1 % injection 2 mg 2 mg, intradermal, PRN, 2 doses, Starting on Tue03/11/20 at 1007, Until Tue03/12/20 at 1407, Other, central line access, Routine metronidazole (FLAGYL) infusion 500 mg 500 mg, intravenous, Administer over 30 Minutes, EVERY 8 HOURS, 21 doses, First dose on Tue03/07/20 at 0000, Last dose on Tue03/13/20 at 1600, Routine Given 03/09/2020 8:18 EDT 500 mg Given 03/09/2020 0:20 EDT 500 mg Given 03/08/2020 17:36 EDT 500 mg metroNIDAZOLE (FLAGYL) tablet 500 mg 500 mg, oral, EVERY 12 HOURS, 11 doses, First dose on Tue03/09/20 at 2100, Last dose on Tue03/14/20 at 2100, Routine Given 03/11/2020 8:43 EDT 500 mg Given 03/10/2020 21:29 EDT 500 mg Given 03/10/2020 8:57 EDT 500 mg metroNIDAZOLE (FLAGYL) tablet 500 mg 500 mg, oral, EVERY 8 HOURS, 21 doses, First dose (after last modification) on Tue03/11/20 at 1600, Last dose on Tue03/18/20 at 0800, Routine Given 03/12/2020 8:35 EDT 500 mg Given 03/11/2020 22:37 EDT 500 mg Given 03/11/2020 16:07 EDT 500 mg morphine injection 1 mg 1 mg, intravenous, NOW X1, 1 dose, On Tue03/07/20 at 0200, Routine Given 03/07/2020 1:46 EDT 1 mg morphine injection 5 mg 5 mg, intravenous, NOW X1, 1 dose, On Tue03/06/20 at 1930, STAT Given 03/06/2020 19:41 EDT 5 mg morphine injection 5 mg 5 mg, intravenous, NOW X1, 1 dose, On Tue03/07/20 at 0100, Routine Given 03/07/2020 1:44 EDT 4 mg ondansetron (ZOFRAN-ODT) disintegrating tablet 4 mg 4 mg, oral, EVERY 4 HOURS PRN, Starting on Tue03/07/20 at 0838, Until Tue03/12/20 at 1407, Nausea, Routine sodium chloride 0.9 % (flush) flush 10 mL 10 mL, intercatheter, WEEKLY, First dose on Tue03/11/20 at 1430, Until Discontinued, Routine Given 03/11/2020 16:12 EDT 10 mL sodium chloride 0.9 % (flush) flush 10 mL 10 mL, intercatheter, PRN, Starting on Tue03/11/20 at 1400, Until Tue03/12/20 at 1407, Line Care, Routine Given 03/11/2020 16:08 EDT 10 mL sodium chloride 0.9 % (flush) flush 20 mL 20 mL, intercatheter, PRN, Starting on Tue03/11/20 at 1400, Until Tue03/12/20 at 1407, Line Care, Routine vancomycin (VANCOCIN) 1,500 mg in sodium chloride (NS) 0.9 % 500 mL IVPB 1,500 mg (rounded from 1,395 mg = 15 mg/kg ? 93 kg), intravenous, Administer over 90 Minutes, EVERY 8 HOURS, 21 doses, First dose on Tue03/07/20 at 0600, Last dose on Renee 03/13/20 at 2200, Type of Therapy: Empiric, Suspected Indication (Select all that apply): Moderate or severe diabetic foot infection, ID Consult: No, Routine Given 03/09/2020 6:16 EDT 1,500 mg Given 03/08/2020 21:51 EDT 1,500 mg Given 03/08/2020 15:05 EDT 1,500 mg vancomycin (VANCOCIN) 1,750 mg in dextrose 5% (D5W) 500 mL IVPB 1,750 mg (rounded from 1,796 mg = 20 mg/kg ? 89.8 kg), intravenous, Administer over 105 Minutes, NOW X1, 1 dose, On Renee 03/06/20 at 2115, Type of Therapy: Empiric, Suspected Indication (Select all that apply): Moderate or severe diabetic foot infection, ID Consult: No, STAT Given 03/06/2020 21:47 EDT 1,750 mg documented in this encounter Discontinued Medications Medication Sig Discontinue Reason Start Date End Da te amoxicillin-clavulanate (AUGMENTIN) 875-125 mg per tablet Take 1 Tab by mouth 2 times daily for 10 days. 03/04/2020 03/12/2020 sulfamethoxazole-trimetho prim (BACTRIM/CO-TRIMOXAZOLE DS) 800-160 mg per tablet Take 1 Tab by mouth every 12 hours for 10 days. 03/04/2020 03/12/2020 documented as of this encounter Active and Recently Administered Medications Times are shown in EDT. Scheduled Medication Order 03/10/2020 03/11/2020 03/12/2020 ceFAZolin in dextrose (iso-os) piggyback 2 g/100 mL 2,000 mg, intravenous, Administer over 30 Minutes, EVERY 8 HOURS, 21 doses, First dose on 03/09/20 at 1230, Last dose on 03/16/20 at 0800, Type of Therapy: Empiric, Suspected Indication (Select all that apply): Purulent cellulitis (no history of MRSA), ID Consult: Yes, ID Consult Type: Formal ID Consult, ID Provider Consulted: Zoe Murray MD, Routine 0900 (Given - Provider: Aden Sanz RN)1614 (Given - Provider: Aden Sanz RN) 0038 (Given - Provider: Mallorie Hayward RN)0844 (Given - Provider: Aden Sanz RN)1608 (Given - Provider: Quincy Huston RN) 0103 (Given - Provider: Mallorie Hayward RN)0837 (Given - Provider: Jesica Sandy RN) enoxaparin (LOVENOX) injection 40 mg 40 mg, subcutaneous, DAILY, First dose (after last modification) on Tue03/07/20 at 0900, Until Discontinued, Routine 0859 (Given - Provider: Aden Sanz RN) 0844 (Given - Provider: Aden Sanz RN) 0838 (Given - Provider: Jesica Sandy RN) insulin aspart U-100 (NOVOLOG FLEXPEN) injection 9 Units 9 Units (rounded from 8.98 Units = 0.1 Units/kg ? 89.8 kg), subcutaneous, 3 TIMES DAILY WITH MEALS, First dose on Tue03/07/20 at 0800, Until Discontinued, Routine 0857 (Given - Provider: Aden Sanz RN)1305 (Given - Provider: Aden Sanz RN)1856 (Given - Provider: Aden Sanz RN) 0842 (Given - Provider: Aden Sanz RN - Comment: bg 110)1216 (Given - Provider: Aden Sanz RN)1800 (Given - Provider: Quincy Huston RN) 0852 (Given - Provider: Jesica Sandy RN)1200 (Canceled Entry - Provider: Batch Job User Admin - Comment: Automatically canceled at discontinue of medication order) insulin aspart U-100 (NOVOLOG FLEXPEN) injection subcutaneous, 3 TIMES DAILY WITH MEALS, First dose on Tue03/07/20 at 0800, Until Discontinued, Routine 0856 (Not Given - Provider: Aden Sanz RN - Reason: Order parameters not met)1307 (Given - Provider: Aden Sanz RN)1854 (Given - Provider: Aden Sanz RN) 0900 (Not Given - Provider: Aden Sanz RN - Reason: Order parameters not met - Comment: bg 110)1213 (Given - Provider: Aden Sanz RN - Comment: bg 185)1758 (Given - Provider: Quincy Huston RN) 0852 (Given - Provider: Jesica Sandy, MARCELO)1200 (Canceled Entry - Provider: Batch Job User Admin - Comment: Automatically canceled at discontinue of medication order) insulin aspart U-100 (NOVOLOG FLEXPEN) injection subcutaneous, AT BEDTIME, First dose on Tue03/07/20 at 0000, Until Discontinued, Routine 2128 (Not Given - Provider: Mallorie Hayward RN - Reason: Order parameters not met) 2234 (Not Given - Provider: Mallorie Hayward RN - Reason: Order parameters not met) insulin glargine (LANTUS SOLOSTAR) injection pen 30 Units 30 Units, subcutaneous, AT BEDTIME, First dose on Tue03/07/20 at 0000, Until Discontinued, Routine 2128 (Given - Provider: Mallorie Hayward RN) 223 (Given - Provider: Mallorie Hayward RN) metroNIDAZOLE (FLAGYL) tablet 500 mg (CANCELED) 500 mg, oral, EVERY 12 HOURS, 11 doses, First dose on Tue03/09/20 at 2100, Last dose on Tue03/14/20 at 2100, Routine 0857 (Given - Provider: Aden Sanz, MARCELO)212 (Given - Provider: Mallorie Hayward RN) 0843 (Given - Provider: Aden Sanz, MARCELO) metroNIDAZOLE (FLAGYL) tablet 500 mg 500 mg, oral, EVERY 8 HOURS, 21 doses, First dose (after last modification) on Tue03/11/20 at 1600, Last dose on Tue03/18/20 at 0800, Routine 1607 (Given - Provider: Quincy Huston RN)2237 (Given - Provider: Mallorie Hayward RN) 0835 (Given - Provider: Jesica Sandy, RN) sodium chloride 0.9 % (flush) flush 10 mL 10 mL, intercatheter, WEEKLY, First dose on Tue03/11/20 at 1430, Until Discontinued, Routine 1612 (Given - Provider: Quincy Huston RN) PRN Medication Order 03/10/2020 03/11/2020 03/12/2020 acetaminophen (TYLENOL) tablet 650 mg 650 mg, oral, EVERY 4 HOURS PRN, Starting on Tue03/06/20 at 2242, Until Tue03/12/20 at 1407, Pain, Routine alteplase (CATHFLO ACTIVASE) injection 2 mg 2 mg, intercatheter, PRN, Starting on Tue03/11/20 at 0954, Until Tue03/12/20 at 1407, Line Care, Routine dextrose 50 % solution 12.5 g 12.5 g (25 mL), intravenous, PRN, Starting on Renee 03/06/20 at 2334, Until Tue03/12/20 at 1407, Low Blood Sugar, Routine glucagon injection 1 mg 1 mg, intramuscular, PRN, Starting on Renee 03/06/20 at 2334, Until Tue03/12/20 at 1407, Low blood sugar, Routine lidocaine (PF) 10 mg/mL (1 %) injection 5 mg 5 mg, intradermal, PRN, 2 doses, Starting on Tue03/11/20 at 0954, Until Tue03/12/20 at 1407, line placement, Routine lidocaine 1 % injection 2 mg 2 mg, intradermal, PRN, 2 doses, Starting on Tue03/11/20 at 1007, Until Tue03/12/20 at 1407, Other, central line access, Routine ondansetron (ZOFRAN-ODT) disintegrating tablet 4 mg 4 mg, oral, EVERY 4 HOURS PRN, Starting on Tue03/07/20 at 0838, Until Tue03/12/20 at 1407, Nausea, Routine sodium chloride 0.9 % (flush) flush 10 mL 10 mL, intercatheter, PRN, Starting on Tue03/11/20 at 1400, Until Tue03/12/20 at 1407, Line Care, Routine 1608 (Given - Provider: Quincy Huston RN) sodium chloride 0.9 % (flush) flush 20 mL 20 mL, intercatheter, PRN, Starting on Tue03/11/20 at 1400, Until Tue03/12/20 at 1407, Line Care, Routine documented in this encounter Orders Medications Ordered That Stan ht Not Have Been Administered Count Last Ordered Date First Ordered Date alteplase (CATHFLO ACTIVASE) injection 2 mg 1 03/11/2020 lidocaine (PF) 10 mg/mL (1 % ) injection 5 mg 1 03/11/2020 lidocaine 1 % injection 2 mg 1 03/11/2020 sodium chloride 0.9 % (flush) flush 20 mL 1 03/11/2020 ondansetron (ZOFRAN-ODT) dis integrating tablet 4 mg 1 03/07/2020 acetaminophen (TYLENOL) tablet 650 mg 1 06/2019 dextrose 50 % solution 12.5 g 1 03/06/2020 glucagon injection 1 mg 1 03/06/2020 insulin aspart U-100 (NOVOLO G FLEXPEN) injection 1 03/06/2020 vancomycin (VANCOCIN) 1,500 mg in dextrose 5% (D5W) 500 mL IVPB 1 03/06/2020 Diet Count Last Ordered Date First Orde red Date DISCHARGE DIET 1 03/12/2020 Nursing Count Last Ordered Date First Orde red Date ACCESS CENTRAL LINE CATHETER 2 03/12/2020 BATHING INSTRUCTIONS 1 03/12/2020 CHECK CENTRAL LINE 1 03/12/2020 DRIVING INSTRUCTIONS 1 03/12/2020 INFECTIOUS DISEASE CLINIC CO MMUNICATION ORDER 1 03/12/2020 LAB INSTRUCTIONS 1 03/12/2020 NURSING IV THERAPY - MISCELLANEOUS 1 2019 WOUND CARE INSTRUCTIONS 1 03/12/2020 IV Count Last Ordered Date First Orde red Date BLOOD DRAW/ADMIN OF CONTRAST PER CVAD PROTOCOL 1 03/12/2020 IV REQUEST 1 03/08/2020 Admission Count Last Ordered Date First Orde red Date ADMIT TO INPATIENT 1 03/07/2020 INITIATE OBSERVATION STATUS 1 03/06/2020 Transfer Count Last Ordered Date First Orde red Date ED BED REQUEST 1 03/06/2020 TEACHING SERVICE 1 03/06/2020 Discharge Count Last Ordered Date First Orde red Date DISCHARGE PATIENT 1 03/12/2020 Legal Count Last Ordered Date First Orde red Date MISCELLANEOUS DISCHARGE INSTRUCTIONS 1 12/2019 documented in this encounter
--- OUTSIDE RECORDS SUMMARY | 2023-12-16 00:42 | XMS_ITS | Encounter Summary ---
Author Organization [facility] Address [address] [place] [address] Care Team Providers Care Manager Biologics Name Role Phone Unavailable Primary Care Provider Unavailabl e Reason for Visit * Reason Comments Telemedicine Video Visit Sore left great toe Foot Swelling Encounter Details Date Type Department Care Team (Late st Contact Info) Description 03/06/2020 16:00 EDT Telemedicine [facility] Adult Primary Care - [address] [address] Moshe Ferrer MD 1 [facility] Level [address] [place] [phone] Cellulitis of great toe of left foot (Primary Dx) Social History Tobacco Use Types Packs/Day Years Used Date Smoking Tobacco: Every Day Cigarettes 0 8.7 Started: 11/10/2010; Last attempted to quit: 08/07/2019 Smokeless Tobacco: Never Tobacco Cessation:Ready to Q uit: Yes; Counseling Given: Yes Alcohol Use Standard Drinks/Week Comments Not Currently [...] Functional Status Response Date of Assess ment Because of a physical, menta l, or emotional condition, does this person have difficulty doing errands alone such as visiting a doctor's office or shopping? No 11/10/2018 Cognitive Status Response Date of Assessm ent Because of a physical, menta l, or emotional condition, does this person have serious difficulty concentrating, remembering, or making decisions? No 11/10/2018 documented as of this encounter Patient Instructions * Patient Instructions* Mallorie Granados LPN - 03/06/2020 16:00 EDT Quitting smoking Stopping smoking is the best step you can take to improve your own health and lengthen your life. Quitting smoking will lower your risk for heart attacks, lung problems, and many forms of cancer. When you stop smoking, your loved ones will breathe less smoke from the air. That will lower their riskfor asthma, lung infections, heart attacks, and lung cancer. You will also save money, look and smell better, and feel good about what you've done. Many people have quit smoking. The best way to quit is to be clear on your reasons for quitting, set a quit date, use medication, and work with a trained counselor. Tobacco Counseling in [facility] offers free counseling services to residents who are ready to cut back or quit using tobacco. Services include: phone coaching (5-325-FBKM-NOW), online tools and support for those who would like to make changes on their own (www.Qinec.org), as well as in-person group workshops. Free nicotine replacement therapy is available through all of these resources. To learn more about your options visit www.WeeleoQuCONSTRVCT.org or call 9-411-UOQB-NOW ( ). To speak with an in-person tobacco counselor in [facility] call, [phone]. [place] Resident, please visit: https://www.MomentFeed/ I hope you quit smoking. I think it's the best thing you can do for your health. Please call our office if you have any questions. documented in this encounter Progress Notes * Moshe Ferrer MD - 03/06/2020 1600 EDT Televideo visit - 03/06/2020 Cristy Luo is a 34 y.o. year old female who was seen today to address Telemedicine Video Visit, Sore (left great toe), and Foot Swelling. SUBJECTIVE She was seen in the emergency room 2 days ago for a a chronic cellulitis of her left great toe. An x-ray did not reveal osteomyelitis. Lab tests showed persistent inflammation. She was prescribed amoxicillin clavulanate and trimethoprim sulfa. Since that time, she has been occasionally nauseated and vomited once. She believes she has been keeping most of the antibiotics down. However, the toe is dramatically more painful and swollen and she is no longer able to bend the the joint. There has been a substantial increase in the amount of purulent drainage from the open wound. Review of Systems Constitutional: No fevers. Cardiovascular: No chest pain. No palpitations. Respiratory: No cough. No shortness of breath. No sputum. No hemoptysis. Gastrointestinal: No abdominal pain. No diarrhea. No constipation. No blood in the stool. No black or tarry stools. Skin: There are some new red spots on the anterior aspect of the right foot that are slightly raised and tender. Current Outpatient Medications on File Prior to Visit Medication Sig Dispense Refill ??? amoxicillin-clavulanate (AUGMENTIN) 875-125 mg per tablet Take 1 Tab by mouth 2 times daily for10 days. 20 Tab 0 ??? blood glucose meter One Touch Verio Flex meter. 1 Each 0 ??? blood glucose test strips One Touch Verio IQ or other brand compatible with meter and covered by patient's insurance. Testing QID. 100 Each 5 ??? insulin aspart U-100 (NOVOLOG FLEXPEN) 100 [...] covered by patient'sinsurance. 100 Each 5 ??? sulfamethoxazole-trimethoprim (BACTRIM/CO-TRIMOXAZOLE DS) 800-160 mg per tablet Take 1 Tab by mouth every 12 hours for 10 days. 20 Tab 0 No current facility-administered medications on file prior to visit. Patient Active Problem List Diagnosis ??? Migraine with aura and without status migrainosus, not intractable ??? Anxiety and depression ??? Type 2 diabetes mellitus ([facility]) ??? Chronic left ear pain ??? Family history of rheumatoid arthritis ??? Encounter for sterilization ??? Left foot pain ??? Chronic midline low back pain without sciatica Social History Social History Narrative ??? Not on file She reports that she has been smoking cigarettes. She started smoking about 9 years ago. She has a 0.16 pack-year smoking history. She has never used smokeless tobacco. She reports previous alcohol use. She reports current drug use. Drug: Marijuana. She reports being sexually active and has had partner(s) who are Male. OBJECTIVE There were no vitals taken for this visit. Physical Exam Constitutional: She is well-developed, well-nourished, and in no distress. Non- toxic appearance. She does not have a sickly appearance. Pulmonary/Chest: Effort normal. No respiratory distress. Speaks in full sentences without breathlessness. Neurological: She is alert. Psychiatric: Mood, memory, affect and judgment normal. Substantial drainage visible. The wound is about the size of a quarter overall with the open area about the size of a nickel. The red spots on the foot are perhaps 1 cm across and irregular in shape. Results for orders placed or performed during the hospital encounter of 03/04/20 (from the past 672hour(s)) HOLD BLUE TOP Collection Time: 03/04/20 15:03 Result Value Ref Range Hold Hold HOLD GREEN TOP Collection Time: 03/04/20 15:03 Result Value Ref Range Hold Hold HOLD LAVENDER TOP Collection Time: 03/04/20 15:03 Result Value Ref Range Hold Hold HOLD SST Collection Time: 03/04/20 15:03 Result Value Ref Range Hold Hold COMPLETE BLOOD COUNT Collection Time: 03/04/20 15:03 Result Value Ref Range WBC 14.64 (H) 4.00 - 12.40 K/cmm RBC 4.58 3.86 - 5.04 M/cmm Hemoglobin 14.1 11.6 - 15.2 gm/dL HCT 40.0 34.9 - 44.4 % MCV 87 81 - 98 fl MCH 30.8 26.7 - 33.3 pg MCHC 35.3 32.1 - 35.9 gm/dL RDW-CV 12.3 <14.7 % RDW-SD 39.5 <50.4 fl PLT 414 (H) 141 - 377 K/cmm MPV 9.8 9.5 - 12.7 fl C REACTIVE PROTEIN Collection Time: 03/04/20 15:03 Result Value Ref Range C-Reactive Protein 33.5 (H) <10.0 mg/L SED. RATE:WESTERGREN Collection Time: 03/04/20 15:03 Result Value Ref Range Sed. Rate Westergren 54 (H) 0 - 20 mm/hr ELECTROLYTES Collection Time: 03/04/20 15:03 Result Value Ref Range Sodium 140 136 - 145 mEq/L Potassium 4.3 3.5 - 5.0 mEq/L Chloride 99 96 - 110 mEq/L CO2 Total 30 22 - 32 mEq/L BUN Collection Time: 03/04/20 15:03 Result Value Ref Range BUN 13 10 - 26 mg/dL CREATININE Collection Time: 03/04/20 15:03 Result Value Ref Range Creatinine 0.41 (L) 0.52 - 1.04 mg/dL eGFR 135 >60 mL/min/1.73m2 GLUCOSE, SERUM Collection Time: 03/04/20 15:03 Result Value Ref Range Glucose 273 (H) 70 - 100 mg/dL ASSESSMENT and PLAN Cellulitis. X-ray done 2 days ago showed no evidence of osteomyelitis. However the dramatic worsening with swelling and increased pain in the face of new antibiotics suggest the possibility of an abscess formation or joint space invasion. I have advised her to go to the emergency room for reevaluation and possible drainage if a closed space infection can be identified. Moshe Ferrer MD link trainer maintenance worker The concept of ???Telemedicine?? has been described [...] in patient???s medical or mental health care. Moshe Ferrer MD link trainer maintenance worker documented in this encounter Plan of Treatment Upcoming Encounters Date Type Department Care Team (Late st Contact Info) Description 02/21/2024 9:45 EDT Office Visit [facility] Adult Primary Care - [address] [phone] Carrington Calderon MD [address] [place] [phone] 02/27/2024 8:30 EDT Telemedicine [facility] Sleep Program - [address] [address] Rn, Sleep 02/29/2024 10:30 EDT Appointment [facility] Radiology Nuclear Medicine and PET - [address] [phone] 02/29/2024 14:30 EDT Appointment [facility] Radiology Nuclear Medicine and PET [address] [phone] 03/01/2024 8:00 EDT Appointment [facility] Radiology Nuclear Medicine and PET [address] [phone] 03/01/2024 9:30 EDT Appointment [facility] Radiology Nuclear Medicine and PET [address] [phone] documented as of this encounter Visit Diagnoses Diagnosis Cellulitis of great toe of left foot- Primary Cellulitis and abscess of toe, unspecified documented in this encounter
--- OUTSIDE RECORDS SUMMARY | 2023-12-16 00:42 | XMS_ITS | Encounter Summary ---
Author Organization [facility] Address [address] [place] [address] Care Team Providers Care Dyeing Machine Tender Name Role Phone Unavailable Primary Care Provider Unavailabl e Encounter Details Date Type Department Care Team ([facility] Contact Info) Description 03/11/2020 Documentation Visit [facility] Home Infusion Pharmacy - [address] [place], [place] [id number] Marcel Bustamante Social History Tobacco Use Types [...] encounter Progress Notes * Marcel Bustamante - 03/11/2020 1505 EDT Patient: Cristy Luo is a 34 y.o. female. Allergies: Citalopram, Other - see comments, and Advil [ibuprofen] LDA: Peripheral IV 03/08/20 1410 Right;Lateral;Distal Forearm (Active) Criteria to continue met? (chart all reasons) Antibiotics administered IV 03/11/20 1135 Date Dressing Changed 03/08/20 03/11/20 1135 Dressing date clearly marked on PIV site? Yes 03/11/20 1135 Site Assessment Clean/Dry/Intact 03/11/20 1135 Line Status Flushed;Clear 03/11/20 1135 Dressing Status/Care Clean/Dry/Intact 03/11/20 1135 Dressing Type Transparent 03/11/20 1135 PICC Single Lumen 03/11/20 Basilic CAJ with 3CG Valved Power Inject (Active) Site Assessment Clean/Dry/Intact 03/11/20 1355 Primary Lumen Status Blood returned;Capped;Flushed 03/11/20 1355 Dressing Status/Care Changed/New 03/11/20 1355 Dressing Type Antimicrobial Disk;Securing Device;Sorbaview 03/11/20 1355 Dressing Change Due 03/18/20 03/11/20 1355 Needleless Connector Changed 03/11/20 03/11/20 135 Exposed Catheter (cm) 1 cm 03/11/20 135 Assessment: Cristy Luo is a new patient coming on home infusion service. Medication Order Review Admission Criteria: Cultural/mosque barriers to home infusion therapy: No Language other than Singaporean: No Vision, speech, hearing, or cognitive impairment: No Clinically unstable and difficult to manage or not safe in the home setting: No History of drug abuse : No History of noncompliance with home infusion therapies: No Dwelling/living situation unsuitable for home infusion (e.g. unsanitary, lacks electricity or refrigeration): No Declined home health services: No Declined regular follow up visit with physician provider: No Home infusion service provided will meet patient's needs: Yes Rights & Responsibilities: Patient Information & Assignment Agreement: Yes Advanced Beneficiary Notification: No Rent versus Purchase Agreement: No Pharmacy/providers contact information including assistance when organization is closed: Yes Scope of Services/Hours of Operation: Yes Product Administration Education: Education tailored to meet needs of patients language and learning preferences: Yes Written information provided: Yes Verbal instructions provided: Yes Review of care plan: Yes Administration method and medical equipment : Yes Drug education: Yes Parenteral access device care and maintenance: Yes Enteral nutrition education: No Aseptic Technique: Yes Hand Hygiene: Yes Pain Control: Yes Natural Disaster: Yes Medication management/reconciliation/MyHealth Online: Yes Food/Drug Interactions: No Hazardous Drugs and Spill Kit: No Home Infusion Education and Evaluation: Fall risk screening was completed during this visit.The patient is considered to be at high risk for falls for the reasons listed below. - patient has had a previous fall within the past 12 months - patient has IV access Follow-up actions discussed with the patient are listed below. - Discussed fall risk. Education provided on fall risk awareness. - Discussed with patient/family fall risks associated with use of durable medical equipment. - Patient/Family verbalized understanding if fall risk education. Home infusion education provided: Yes Home infusion education recipient: Patient ;Family Home Infusion Education: Verbal - talking points;Material provided Home infusion education evaluation: Independent - Returned demonstration General Information: Home Health Contacted?: Yes Delivery process: Yes Home Health Agency Contact Info: DANAY Reardon ([phone] or [phone]) Laboratory Contacts: [facility] [phone] Referral Source: Nurse/Car Repairer Plan: Initial teach completed with Stella for home Cefazolin IV Push, via a single lumen PICC. Discussed diagnosis and goals of therapy. Stella verbalized understanding of all teaching including the care, handling, how to inspect before using, refrigeration and storage of medication and supplies. Stella also verbalized proper set up, cleaning practices, and safe disposal of medication and supplies. Stella confirmed that they have proper refrigeration capacity at home. Stella instructed on flushing PICC, IV push administration over 6 to 10 minutes, potential problems and actions to take. Stella was able to demonstrate flushing PICC and IV push administration with practice equipment. Instructed in physical characteri stic/appearance of medication provided. If a problem is noted Stella was instructed to call the pharmacy and to return questionable product to the pharmacy. Stella was instructed to report any redness, drainage or pain at PICC site, and fever over 100 degrees. Teaching packet, including information on drug side effects, reviewed and sent home with patient. Patient has contact information for Home Infusion Pharmacy and Provider if questions or concerns arise and knows when to call 911. Home Health will see patient on 03/12. We will follow up with patient via phone on 03/13. MARCEL BUSTAMANTE 03/11/2020 15:07 * Mily Ovalle, [facility] - 03/11/2020 8385 EDT Patient: Cristy Luo is a 34 y.o. female. Allergies: Citalopram, Other - see [...] inflammation, pain, fever). Instruct patient to contact HH nurse and/or MD. Contact MD. Subjective: Objective: Labs: Creatinine Date Value Ref Range Status 03/10/2020 0.50 (L) 0.52 - 1.04 mg/dL Final 03/08/2020 0.42 (L) 0.52 - 1.04 mg/dL Final 03/07/2020 0.44 (L) 0.52 - 1.04 mg/dL Final C-Reactive Protein Date Value Ref Range Status 03/06/2020 27.7 (H) <10.0 mg/L Final 03/04/2020 33.5 (H) <10.0 mg/L Final 11/28/2019 10.6 (H) <10.0 mg/L Final WBC Date Value Ref Range Status 03/10/2020 12.33 4.00 - 12.40 K/cmm Final 03/08/2020 11.24 4.00 - 12.40 K/cmm Final 03/07/2020 11.29 4.00 - 12.40 K/cmm Final Sed. Rate Westergren Date Value Ref Range Status 03/06/2020 25 (H) 0 - 20 mm/hr Final 03/04/2020 54 (H) 0 - 20 mm/hr Final 09/27/2006 47 (H) 0 - 20 mm/hr Final Comment: Note: Sample greater than 4 hrs old (but less than 12 hrs) when tested. If refrigerated, sample is stable when tested within 12 hours of collection. Neutrophils Date Value Ref Range Status 03/06/2020 62.7 % Final 11/28/2019 45.7 % Final 10/11/2019 52.6 % Final Eosinophils Date Value Ref Range Status 03/06/2020 2.2 % Final 11/28/2019 2.6 % Final 10/11/2019 5.2 % Final Total Alkaline Phosphatase Date Value [...] Drug/Food Interaction Review: No Contraindication Review: Yes Admitted to home infusion treated with Cefazolin 2G IV every 8 hours for 40 days for purulent plantar toe ulcer complicated by osteomyelitis. Reviewed home infusion nurse assessment. Plan: Begin home infusion therapy. CRIMPING MACHINE OPERATOR FOR METAL nurse to see patient for administration of first home dose. Mixed and sent enough drug and supplies through 03/19/20. Delivery to [facility] for patient to diamond picker at discharge. Anticipated end date 04/20/20. Follow up with patient via telephone within first week of therapy. Monitor labs per care plan weekly. MILY OVALLE RPH 03/17/2020 15:00 documented in this encounter Plan of Treatment Upcoming Encounters Date Type Department Care Team (Late st Contact Info) Description 02/21/2024 9:45 EDT Office Visit [facility] Adult Primary Care - [address] [address] Carrington Calderon MD [address] [phone] 02/27/2024 8:30 EDT Telemedicine [facility] Sleep Program - [address] [address] Rn, Sleep 02/29/2024 10:30 EDT Appointment [facility] Radiology Nuclear Medicine and PET - [address] [phone] 02/29/2024 14:30 EDT Appointment [facility] Radiology Nuclear Medicine and PET [address] [id number] 03/01/2024 8:00 EDT Appointment [facility] Radiology Nuclear Medicine and PET [address] [phone] 03/01/2024 9:30 EDT Appointment [facility] Radiology Nuclear Medicine and PET [address] [phone] documented as of this encounter Visit Diagnoses Not on filedocumented in this encounter
--- OUTSIDE RECORDS SUMMARY | 2023-12-16 00:42 | XMS_ITS | Encounter Summary ---
Author Organization [facility] Address [address] [place] [address] Care Team Providers Care Computer Mechanic Name Role Phone Unavailable Primary Care Provider Unavailabl e Encounter Details Date Type Department Care Team ([facility] Contact Info) Description 03/13/2020 Documentation Visit [facility] Home Infusion Pharmacy - [address] [place] [address] Natasha Crook, RN [address] [place] [address] Social History Tobacco Use Types Packs/Day Years [...] as of this encounter Progress Notes * Natasha Crook, RN - 03/13/2020 1137 EDT Call to patient discharged yesterday on IV Abx. She reports that she is independent with infusions and feels comfortable with the process. She does report a slight headache after the infusions. [facility] is aware. She will let them know if the headache worsens or persists. They are seeing her again todayat 1300. She is tired and has a hx of migraine so it is difficult for her to determine what is causing the issue. I completed a medication reconciliation.She has our contact number to call with any questions or concerns. documented in this encounter Plan of Treatment Upcoming Encounters Date Type Department Care Team (Late st Contact Info) Description 02/21/2024 9:45 EDT Office Visit [facility] Adult Primary Care - [address] [phone] Carrington Calderon MD 1 [facility] 1 [place] [phone] 02/27/2024 8:30 EDT Telemedicine [facility] Sleep Program - [address] [place] [address] Rn, Sleep 02/29/2024 10:30 EDT Appointment [facility] Radiology Nuclear Medicine and PET [address] [phone] 02/29/2024 14:30 EDT Appointment [facility] Radiology Nuclear Medicine and PET - [address] [phone] 03/01/2024 8:00 EDT Appointment [facility] Radiology Nuclear Medicine and PET [address] [id number] 03/01/2024 9:30 EDT Appointment [facility] Radiology Nuclear Medicine and PET [address] [phone] documented as of this encounter Visit Diagnoses Not on filedocumented in this encounter
--- OUTSIDE RECORDS SUMMARY | 2023-12-16 00:42 | XMS_ITS | Encounter Summary ---
Author Organization [facility] Address [address] [place] [address] Care Team Providers Care Tool And Die Repairer Name Role Phone Carrington Calderon MD Primary Care Provi anders Abigail Díaz Unavailable Carmelo Hendrickson Unavailable Unavailable Encounter Details Date Type Department Care Team (Late st Contact Info) Description 03/18/2020 Lab Requisition [facility] Pathology & Laboratory Medicine - [address] [address] Mushtaq Light, DO [address] [facility], Level [address] [place] [address] Encounter for other general examination [facility] [address] [phone] Carrington Calderon MD 1 [facility] 1 [place] [phone] 02/27/2024 8:30 EDT Telemedicine [facility] Sleep Program - [address] [phone] Rn, Sleep 02/29/2024 10:30 EDT Appointment [facility] Radiology Nuclear Medicine and PET - [address] [address] 02/29/2024 14:30 EDT Appointment [facility] Radiology Nuclear [facility] and [address] [address] 03/01/2024 8:00 EDT Appointment [facility] Radiology Nuclear Medicine and [address] [address] 03/01/2024 9:30 EDT Appointment [facility] Radiology Nuclear [facility] and [address] [address] documented as of this encounter Procedures Procedure Name Priority Date/Time Associated Diagnosis Comments SED RATE Today 03/18/2020 10:35 EDT Encounter for other general examination COMPLETE BLOOD COUNT AND DIFFERENTIAL Today 03/18/2020 10:35 EDT Encounter for other general examination C REACTIVE PROTEIN Today 03/18/2020 10 :35 EDT Encounter for other general examination CREATININE Today 03/18/2020 10:35 EDT Encounter for other general examination documented in this encounter Results * (ABNORMAL) SED. RATE:DANEREN (03/18/2020 10:35 EDT) Sed Rate 37(H) 0 - 20 mm/hr 03/18/2020 18:51 EDT [facility] Comment:Note: Sample greater than 4 hours old (but less than 12 hours) when tested. If refrigerated, sample is stable when tested within 12 hours of collection. Blood VENOUS BLOOD / Unknown Non-Lab Collect / Unknown 03/18/2020 10:35 EDT 03/18/2020 16:41 EDT Mushtaq Light DO HEMATOLOGY & PF4 OR DERABLES [facility] [address] [place] [address] * (ABNORMAL) COMPLETE BLOOD COUNT AND DIFFERENTIAL (03/18/2020 10:35 EDT) WBC 11.64 4.00 - 12.40 K/cmm 03/18/2020 17:17 [facility] RBC 4.54 3.86 - 5.04 M/cmm 03/18/2020 17:17 [facility] Hemoglobin 13.9 11.6 - 15.2 gm/dL 03/18/2020 17:17 [facility] HCT 40.9 34.9 - 44.4 % 03/18/2020 17:17 [facility] MCV 90 81 - 98 fl 03/18/2020 17:17 [facility] MCH 30.6 26.7 - 33.3 pg 03/18/2020 17:17 [facility] MCHC 34.0 32.1 - 35.9 gm/dL 03/18/2020 17:17 [facility] RDW-CV 12.4 <14.7 % 03/18/2020 17:17 [facility] RDW-SD 40.8 <50.4 fl 03/18/2020 17:17 [facility] PLT 462(H) 141 - 377 K/cmm 03/18/2020 17:17 [facility] MPV 10.5 9.5 - 12.7 fl 03/18/2020 17:17 [facility] % Neutrophils 55.0 % 03/18/2020 17:17 [facility] % Lymphocytes 33.0 % 03/18/2020 17:17 [facility] % Monocytes 7.4 % 03/18/2020 17:17 [facility] % Eosinophils 3.4 % 03/18/2020 17:17 [facility] % Basophils 0.7 % 03/18/2020 17:17 [facility] % Immature Grans 0.5 % 03/18/20 20 17:17 [facility] Absolute Neutrophils 6.41 2.20 - 8.85 K/cmm 03/18/2020 17:17 [facility] Absolute Lymphocytes 3.84(H) 1.09 - 3.30 K/cmm 03/18/2020 17:17 [facility] Absolute Monocytes 0.86(H) 0.10 - 0.80 K/cmm 03/18/2020 17:17 [facility] Absolute Eosinophils 0.39 0.03 - 0.61 K/cmm 03/18/2020 17:17 [facility] ABS Basophils 0.08 0.01 - 0.11 K/cmm 03/18/2020 17:17 [facility] Absolute Immature Grans 0.06 0.00 - 0.06 K/cmm 03/18/2020 17:17 [facility] Type of Differential: Auto 03/18/2020 17:17 [facility] Blood VENOUS BLOOD / Unknown Non-Lab Collect / Unknown 03/18/2020 10:35 EDT 03/18/2020 16:41 EDT Mushtaq Light DO PACKAGES & DNA PROB E ORDERABLES Performing Organization Address [facility] de Phone Number [facility] [address] [place] [address] * (ABNORMAL) CREATININE (03/18/2020 10:35 EDT) Creatinine 0.41(L) 0.52 - 1.04 mg/dL 03/18/2020 17:17 T [facility] eGFR 135 >60 mL/min/1.7 3m2 03/18/2020 17:17 [facility] Comment:eGFR calculated gil curtis CKD-EPI equation for non- Americans. Multiply eGFR by 1.16 for patients. Blood VENOUS BLOOD / Unknown Non-Lab Collect / Unknown 03/18/2020 10:35 EDT 03/18/2020 16:41 EDT Mushtaq Light DO CHEMISTRY & BLOOD G ORDERABLES Performing Organization Address [facility] Co de Phone Number [facility] [address] [place] [address] * C REACTIVE PROTEIN (03/18/2020 10:35 EDT) C-Reactive Protein <7.0 <10.0 mg/L 03/18/2020 17:17 EDT [facility] Blood VENOUS BLOOD / Unknown Non-Lab Collect / Unknown 03/18/2020 10:35 EDT 03/18/2020 16:41 EDT Mushtaq Light DO CHEMISTRY & BLOOD G ORDERABLES [facility] [address] [place] [address] documented in this encounter Visit Diagnoses Diagnosis Encounter for other general examination documented in this encounter Additional Health Concerns Infection Onset Date Last Indicated Resolved Time R/O COVID-19 08/04/2020 08/04/2020 08/04/2020 11:4 0 EST documented as of this encounter Care Teams Tool And Die Repairer Relationship Specialty Start Date End Date Carrington Calderon MD 1 [facility] 1 [place] [address] PCP - General Internal Medicine - Primary Care 12/09/20 Abigail Díaz Edger Machine Setter 04/21/23 Carmelo Hendrickson Coordinator 12/01/23 documented as of this encounter
--- OUTSIDE RECORDS SUMMARY | 2023-12-16 00:42 | XMS_ITS | Encounter Summary ---
Author Organization [facility] Address [address] [place] [address] Care Team Providers Care Medical Information Officer Name Role Phone Unavailable Primary Care Provider Unavailabl e Encounter Details Date Type Department Care Team (Latest Contact Info) Description 01/01/2020 8:37 EDT - 01/01/2020 23:59 EDT Hospital Encounter [facility] [address] [place], [place] [phone] Discharge Disposition: Home or Self Care Social History Tobacco Use Types Packs/Day Years Used Date Smoking Tobacco: Former Cigarettes 0.3 8.7 0 11/10/2010 - 08/07/2019 Smokeless Tobacco: Never Alcohol Use Standard Drinks/Week Comments Not Currently 0 (1 standard drink = 0.6 oz pur e alcohol) very rare AUDIT-C Answer Date Recorded Frequency of Alcohol Consumption Monthly or less 11/03/2018 Average Number of Drinks 1 or 2 019 Frequency of Binge Drinking Never 10/06 Hunger Vital Sign Answer Date Recorded Within the past 12 months, y ou worried that your food would run out before you got the money to buy more. Never true 11/26/19 20 Within the past 12 months, t he food you bought just didn't last and you didn't have money to get more. Never true 11/26/2019 Sex and Gender Information Value Date Recorded Sex Assigned at Not on file Gender Identity Female 06/18/2019 8:54 EST Sexual Orientation Not on file COVID-19 Exposure Response Date Recorded In the last month, have you been in contact with someone who was confirmed or suspected to have Coronavirus / COVID-19? No / Unsure 12/04/2019 15:26 EDT documented as of this encounter Functional [...] No 11/10/2018 documented as of this encounter Medications at Time of Discharge Medication Sig Dispensed Refills Start Date End Date blood glucose meter One Touch Verio Flex meter. 1 Each 10/04/2019 12/21/2021 blood glucose test strips One Touch Verio IQ or other brand compatible with meter and covered by patient's insurance. Testing QID. 100 Each 5 10/01/2019 08/11/2020 HYDROcodone-acetaminop hen (NORCO) 5-325 mg tablet Take 1 Tab by mouth at bedtime as needed for up to 7 days for Pain. Daily Max: 1 Tab 7 Tab 12/28/2019 01/03/2020 insulin aspart U-100 (NOVOLOG FLEXPEN) 100 unit/mL [...] patient's insurance. 100 Each 5 10/01/2019 10/01/2020 metFORMIN (GLUCOPHAGE) 500 mg tablet Take 2 Tabs by mouth daily for 90 days. 180 Tab 1 11/26/2019 01/08/2020 documented as of this encounter Discharge Disposition Disposition Code Departure Means Destination Home or Self Care documented in this encounter Plan of Treatment Upcoming Encounters Date Type Department Care Team (Late st Contact Info) Description 02/21/2024 9:45 EDT Office Visit [facility] Adult Primary Care [address] [address] Carrington Calderon MD [address] [place] [address] 1 [place] [address] 02/27/2024 8:30 EDT Telemedicine [facility] Sleep Program - [address] [address] Rn, Sleep 02/29/2024 10:30 EDT Appointment [facility] Radiology Nuclear Medicine and PET - [address] [address] 02/29/2024 14:30 EDT Appointment [facility] Radiology Nuclear Medicine and PET [address] [address] 03/01/2024 8:00 EDT Appointment [facility] Radiology Nuclear Medicine and PET [address] [phone] 03/01/2024 9:30 EDT Appointment [facility] Radiology Nuclear Medicine and [address] [address] documented as of this encounter Procedures Procedure Name Priority Date/Time Associated Diagnosis Comments XR FOOT LEFT 3 OR MORE VIEWS Routine 01/01/2020 8:52 EDT Ulcerated, foot, left, with fat layer exposed ([facility]) Type 2 diabetes mellitus with diabetic polyneuropathy, with long-term current use of insulin ([facility]) documented in this encounter Results * XR ANKLE LEFT 3 OR MORE VIEWS (01/01/2020 8:53 EDT) Anatomical Region Laterality Modality Lower Extremities, Ankle Left Compute d Radiography 01/01/2020 9:50 EDT Impressions 01/01/2020 9:50 EDT FINDINGS / IMPRESSION: 3 weightbearing views of the left ankle and 3 weightbearing views of the left foot were obtained. There is no evidence of acute fracture or dislocation. No discrete erosions are identified to suggest osteomyelitis. There is an accessory os navicularis. Scattered mainly mild degenerative changes are seen and there is a large plantar calcaneal spur. There is soft tissue swelling along the dorsum of the foot and around the ankle. Narrative 01/01/2020 9:50 EDT EXAM/TECHNIQUE: XR FOOT LEFT 3 OR MORE VIEWS, XR ANKLE LEFT 3 OR MORE VIEWS ??01/01/2020 8:45 AM HISTORY: ?? 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 IMPRESSION FINDINGS / IMPRESSION: 3 weightbearing views of the left ankle and 3 weightbearing views of theleft foot were obtained. There is no evidence of acute fracture ordislocation. No discrete erosions are identified to suggest osteomyelitis.There is an accessory os navicularis. Scattered mainly mild degenerativechanges are seen and there is a large plantar calcaneal spur. There issoft tissue swelling along the dorsum of the foot and around the ankle. Elza Navarro DPM IMG DIAGNOSTIC IMAGI NG ORDERABLES * XR FOOT LEFT 3 OR MORE VIEWS (01/01/2020 8:52 EDT) Anatomical Region Laterality Modality Lower Extremities Left Computed Radio graphy 01/01/2020 9:50 EDT Impressions 01/01/2020 9:50 EDT FINDINGS / IMPRESSION: 3 weightbearing views of the left ankle and 3 weightbearing views of the left foot were obtained. There is no evidence of acute fracture or dislocation. No discrete erosions are identified to suggest osteomyelitis. There is an accessory os navicularis. Scattered mainly mild degenerative changes are seen and there is a large plantar calcaneal spur. There is soft tissue swelling along the dorsum of the foot and around the ankle. Narrative 01/01/2020 9:50 EDT EXAM/TECHNIQUE: XR FOOT LEFT 3 OR MORE VIEWS, XR ANKLE LEFT 3 OR MORE VIEWS ??01/01/2020 8:45 AM HISTORY: ?? 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 IMPRESSION FINDINGS / IMPRESSION: 3 weightbearing views of the left ankle and 3 weightbearing views of theleft foot were obtained. There is no evidence of acute fracture ordislocation. No discrete erosions are identified to suggest osteomyelitis.There is an accessory os navicularis. Scattered mainly mild degenerativechanges are seen and there is a large plantar calcaneal spur. There issoft tissue swelling along the dorsum of the foot and around the ankle. Elza Navarro DPM IMG DIAGNOSTIC IMAGI NG ORDERABLES documented in this encounter Visit Diagnoses Not on filedocumented in this encounter
--- OUTSIDE RECORDS SUMMARY | 2023-12-16 00:42 | XMS_ITS | Encounter Summary ---
Author Organization [facility] Address [address] [place] [address] Care Team Providers Care County Health Officer Name Role Phone Unavailable Primary Care Provider Unavailabl e Encounter Details Date Type Department Care Team (Latest Contact Info) Description 03/06/2020 Travel Social History Tobacco Use Types Packs/Day [...] No 11/10/2018 documented as of this encounter Plan of Treatment Upcoming Encounters Date Type Department Care Team (Late st Contact Info) Description 02/21/2024 9:45 EDT Office Visit [facility] Adult Primary Care - [address] [phone] Carrington Calderon MD [address] [place] [phone] 02/27/2024 8:30 EDT Telemedicine [facility] Sleep Program - [address] [address] Rn, Sleep 02/29/2024 10:30 EDT Appointment [facility] Radiology Nuclear Medicine and PET [address] [phone] 02/29/2024 14:30 EDT Appointment [facility] Radiology Nuclear Medicine and PET [address] [phone] 03/01/2024 8:00 EDT Appointment [facility] Radiology Nuclear Medicine and PET [address] [address] 03/01/2024 9:30 EDT Appointment [facility] Radiology Nuclear Medicine and PET [address] [phone] documented as of this encounter Visit Diagnoses Not on filedocumented in this encounter
--- OUTSIDE RECORDS SUMMARY | 2023-12-16 00:42 | XMS_ITS | Encounter Summary ---
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 No / Unsure 03/04/2020 13:09 EDT documented as of this encounter Last Filed Vital Signs Vital Sign Reading Time Taken Comments Blood Pressure 121/78 03/04/2020 1625 EDT Pulse 118 03/04/2020 1309 EDT Temperature 37.1 ??C (98.8 ??F) 03/04/2020 1309 EDT Respiratory Rate 14 03/04/2020 1625 EDT Oxygen Saturation 98% 03/04/2020 1625 EDT Inhaled Oxygen Concentration - - Weight [...] No 11/10/2018 documented as of this encounter Discharge Instructions * Discharge Instructions* Mayank Cruz MD - 03/04/2020 16:13 EDT The x-ray of your foot does not demonstrate bone involvement there is no evidence of osteomyelitis. Return to the emergency department if symptoms worsen or new symptoms develop. You will need close follow-up with your primary care provider. Take antibiotics as prescribed. * Attachments The following attachments cannot be sent through Care Everywhere. * Diabetic Foot Ulcer (Peruvian) documented in this encounter Medications at Time of Discharge Medication Sig Dispensed Refills Start Date End Date amoxicillin-clavulanat e (AUGMENTIN) 875-125 mg per tablet Take 1 Tab by mouth 2 times daily for 10 days. 20 Tab 03/04/2020 03/12/2020 blood glucose meter One Touch Verio Flex meter. 1 Each 10/04/2019 12/21/2021 blood glucose test strips One Touch Verio IQ or other brand compatible with meter and covered by patient's insurance. Testing QID. 100 Each 5 10/01/2019 08/11/2020 insulin aspart U-100 (NOVOLOG FLEXPEN) 100 unit/mL [...] patient's insurance. 100 Each 5 10/01/2019 10/01/2020 sulfamethoxazole-trime thoprim (BACTRIM/CO-TRIMOXAZOL E DS) 800-160 mg per tablet Take 1 Tab by mouth every 12 hours for 10 days. 20 Tab 03/04/2020 03/12/2020 documented as of this encounter Ordered Prescriptions Prescription Sig Dispensed Refills Start Date End Da te sulfamethoxazole-trimethop rim (BACTRIM/CO-TRIMOXAZOLE DS) 800-160 mg per tablet Take 1 Tab by mouth every 12 hours for 10 days. 20 Tab 03/04/2020 03/12/2020 amoxicillin-clavulanate (AUGMENTIN) 875-125 mg per tablet Take 1 Tab by mouth 2 times daily for 10 days. 20 Tab 03/04/2020 03/12/2020 documented in this encounter Discharge Disposition Disposition Code Departure Means Destination Home or Self [facility]pc documented in this encounter ED Notes * Eryn Lunsford RN - 03/04/[address] Cruz at bedside. * Eryn Lunsford RN - 03/04/2020 1545 EDT Patient given pain medication per MD orders, tolerated well. NAD noted at this time. Denies any further needs. Awaiting results and further orders. * Eryn Lunsford RN - 03/04/[address] Cruz at bedside. * Mayank Cruz MD - 03/04/2020 1513 EDT This patient received an evaluation and medical screening exam for emergent medical conditions at the [facility] on 03/04/2020 Scribe Attestation: This documentation is recorded by Elise Prabhakar acting as Scribe under the direction and presence of Mayank Cruz MD. Mayank Cruz MD: I personally performed the services recorded by the scribe in my presence. I confirm the scribe's documentation has been reviewed by me to accurately and completely record my work, treatment, procedures, and medical decision making. I performed a history and exam of this patient and discussed the case with the resident. I reviewedthis individual's note and I concur with the documented findings and plan of care except as documented differently. Chief Complaint Chief Complaint Patient presents with ??? Foot Ulcer pt has had foot ulcer for 2.5 mo on left great toe, sent here by primary HPI Cristyrut Luo is a 34 y.o. female with a history of T2DM, anxiety, depression, and obesity reporting to the ED with left foot pain. The patient endorses severe left foot pain related to a foot ulcer just below her big toe. Patient reports that the pain began X2 months ago but has progressively w orsened. Patient states that she has difficulty bearing weight secondary to pain. Patient also endorses tingling to the foot although she states that she has baseline neuropathy. Patient reports thatshe has been seen by here PCP for this and completed a round of antibiotics. Patient reports that she has been trying to keep it clean but she notes a foul smell coming from the ulcer. Patient denies cough, fever, chills, shortness of breath, dysuria, or hematuria. Patient now presents for further evaluation and treatment. Social History- The patient is a current everyday smoker. She denies current alcohol use. She smokes marijuana. History was provided by: The patient and medical records. Patient's pertinent PMH, FH, and SH were reviewed and updated PRN. ROS Review of Systems Constitutional: Negative for chills, diaphoresis, fatigue and fever. HENT: Negative. Eyes: Negative for visual disturbance. Respiratory: Negative for cough and shortness of breath. Cardiovascular: Negative for chest pain and leg swelling. Gastrointestinal: Negative for abdominal pain, nausea and vomiting. Endocrine: Negative for cold intolerance, heat intolerance and polydipsia. Genitourinary: Negative for dysuria. Musculoskeletal: Positive for arthralgias and gait problem. Negative for back pain. Left foot pain Skin: Positive for wound. Allergic/Immunologic: Negative for immunocompromised state. Neurological: Positive for numbness. Negative for dizziness, weakness and light-headedness. Hematological: Does not bruise/bleed easily. Psychiatric/Behavioral: Negative for agitation and confusion. The patient is not nervous/anxious. All other systems reviewed and are negative. Allergies Allergen Reactions ??? Citalopram Other (See Comments) suicidal ideation, approx 2012 ??? Other - See Comments Swelling of throat pomergrante ??? Advil [Ibuprofen] Hives Physical Exam Vital Signs Temp: 37.1 ??C (98.8 ??F) Temp src: Oral Pulse: (!) 118 Resp: 18 SpO2: 100 % BP: 124/86 BP Device: BP Machine BP Patient Position: Held Physical Exam Vitals signs and nursing note reviewed. Constitutional: General: She is not in acute distress. Appearance: She is well-developed. She is not ill-appearing or toxic-appearing. HENT: Head: Normocephalic and atraumatic. Eyes: Pupils: Pupils are equal, round, and reactive to light. Neck: Musculoskeletal: Normal range of motion and neck supple. Cardiovascular: Rate and Rhythm: Regular rhythm. No extrasystoles are present. Pulses: Normal pulses. Pulmonary: Effort: Pulmonary effort is normal. No accessory muscle usage or respiratory distress. Breath sounds: Normal breath sounds. No stridor. Abdominal: General: There is no distension. Palpations: Abdomen is soft. Tenderness: There is no abdominal tenderness. Musculoskeletal: Normal range of motion. General: Tenderness present. Right lower leg: No edema. Left lower leg: No edema. Skin: General: Skin is warm and dry. Findings: No erythema. Comments: Base of the left great toe has a ulcer 1.5 cm in diameter No purulent drainage Foul smelling No bone in the base of the ulcer No lymphangitic streaking Diminished sensation to light touch Neurological: Mental Status: She is alert and oriented to person, place, and time. She is not disoriented. Cranial Nerves: No cranial nerve deficit. Sensory: Sensory deficit present. Psychiatric: Mood and Affect: Mood normal. Procedures Procedures ED Course A medical screening was performed. The patient is a 34 y.o. female with a history of T2DM reporting to the ED with a diabetic foot ulcer and associated pain. Vital Signs: BP 124/86 (BP Patient Position: Held) Pulse (!) 118 Temp 37.1 ??C (98.8 ??F) (Oral) Resp 18 SpO2 100% Physical exam as above. Base of the left great toe has a 1.5 cm ulcer without purulent drainage. Itis foul smelling. There is no bone in the base of the ulcer and no lymphangitis streaking. Patient exhibited diminished sensation to light touch in the left foot. Differential diagnosis includes but is not limited to: uncontrolled diabetes, diabetic foot ulcer, foot abscess cellulitis, osteomyelitis. Patient's past medical record reviewed by myself. The patient had a left toe X-Ray which was significant for no fracture or malalignment. Soft tissuedefect is present at the plantar aspect of the distal phalanx of the great toe. No associated osseous erosion. Minimal osteoarthrosis of the interphalangeal joint. Swelling of the great toe noted. Patient had X-Ray that was obtained, reviewed, and interpreted by myself along with a radiologist. Please see radiology report for further details. The patient had a left foot X-Ray which was significant for no fracture or focal osseous lesion. Diffuse soft tissue swelling. Enthesopathic spurring at the origin of the plantar fascia. Type II os naviculare. Patient had X-Ray that was obtained, reviewed, and interpreted by myself along with a radiologist. Please see radiology report for further details. Patient's pain was managed with 5 mg of IV morphine. Labs-Glucose of 273, CRP 33.5, Creatinine of 0.4, WBC 14.6, Hematocrit of 40.0. Patient had labs that were reviewed independently by myself. Spoke with the patient who felt reassured by her imaging and lab results. She felt comfortable going home at this time with antibiotics. Discussed Abx with the Pharmacist. The patient was discharged in stable condition with a Rx for Augmentin and Bactrim. Prior to discharge usual and customary precautions were reviewed with the patient and/or family including follow-upinstructions and reasons to return to the Emergency Department if condition worsens, does not improve as expected, or other new concerns arise. 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, with necrosis of muscle (HCC-CMS): new, needed workup Amount and/or Complexity of Data Reviewed Clinical lab tests: ordered and reviewed Tests in the radiology section of CPT??: ordered and reviewed Independent visualization of images, tracings, or specimens: yes (Foot x-ray laboratory tests) Risk of Complications, Morbidity, and/or Mortality Presenting problems: moderate Diagnostic procedures: moderate Management options: moderate General comments: 4 Patient Progress Patient progress: stable Clinical Impression Final diagnoses: 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 Benefit of further medications. At the end of my care of this patient, the patient's pain was 3 on a zero to ten scale. Any further pain treatment will be at the discretion of the provider following up with the patient based on their clinical assessment. The patient's condition at the end of my care: Stable * Eryn Lunsford RN - 03/04/2020 5562 EDT Patient to ED with c/o worsening of diabetic ulcer to left great toe. Pt. Noted to have open wound to toe, reports has seen PCP and completed a round of antibiotics. Pt. Reports wound has been draining saturating through dressing and her socks. Pt. Noted to have swelling to left foot and toes. Pedal pluses present and strong bilaterally. Pt. With NAD not at this time. Resident to bedside. Awaiting orders. documented in this encounter Plan of Treatment Upcoming Encounters Date Type Department Care Team (Late st Contact Info) Description 02/21/2024 9:45 EDT Office Visit [facility] Adult Primary Care - [address] [phone] Carrington Calderon MD [address] [place] [phone] 02/27/2024 8:30 EDT Telemedicine [facility] Sleep Program - [address] [address] Rn, Sleep 02/29/2024 10:30 EDT Appointment [facility] Nuclear Medicine and PET [address] [phone] 02/29/2024 14:30 EDT Appointment [facility] Nuclear Medicine and PET [address] [phone] 03/01/2024 8:00 EDT Appointment [facility] Nuclear Medicine and PET [address] [phone] 03/01/2024 9:30 EDT Appointment [facility] Nuclear Medicine and PET [address] [phone] documented as of this encounter Procedures Procedure Name Priority Date/Time Associated Diagnosis Comments XR FOOT LEFT 3 OR MORE VIEWS STAT 03/04/2020 15:39 EDT XR TOE LEFT 2 OR MORE VIEWS STAT 03/04/2020 15:30 EDT BACTERIAL CULTURE, BLOOD Routine 03/04/2020 15:20 EDT HOLD SST STAT 03/04/2020 15:03 EDT HOLD LAVENDER TOP STAT 03/04/2020 15: 03 EDT HOLD GREEN TOP STAT 03/04/2020 15:03 EDT HOLD BLUE TOP STAT 03/04/2020 15:03 EDT SED RATE Add-On 03/04/2020 15:03 EDT COMPLETE BLOOD COUNT Add-On 03/04/2020 15:03 EDT C REACTIVE PROTEIN Add-On 03/04/2020 15 :03 EDT BUN Add-On 03/04/2020 15:03 EDT GLUCOSE, SERUM STAT Add-on 03/04/2020 15:03 EDT CREATININE Add-On 03/04/2020 15:03 EDT ELECTROLYTES Add-On 03/04/2020 15:03 EDT documented in this encounter Results * XR FOOT LEFT 3 OR MORE VIEWS (03/04/2020 15:39 EDT) Anatomical Region Laterality Modality Lower Extremities Left Computed Radio graphy 03/04/2020 15:4 9 EDT Impressions 03/04/2020 15:49 EDT Findings/ Impression: No fracture or focal osseous lesion. Diffuse soft tissue swelling. Enthesopathic spurring at the origin of the plantar fascia. Type II os naviculare. Narrative 03/04/2020 15:49 EDT XR FOOT LEFT 3 OR MORE VIEWS ??03/04/2020 3:30 PM Clinical History/Comments: Chronic L great toe diabetic foot ulcer, now infected, question osteomyelitis, assess for gas formation in tissues of foot Comparison: None relevant Technique: 3 views of the left foot Procedure Note Wilian Wellington MD - 03/04/2020 XR FOOT LEFT 3 OR MORE VIEWS 03/04/2020 3:30 PM Clinical History/Comments: Chronic L great toe diabetic foot ulcer, now infected, questionosteomyelitis, assess for gas formation in tissues of foot Comparison: None relevant Technique: 3 views of the left foot IMPRESSION Findings/ Impression: No fracture or focal osseous lesion. Diffuse soft tissue swelling.Enthesopathic spurring at the origin of the plantar fascia. Type II osnaviculare. Scott Harrington MD [facility] ORDERABLES * XR TOE LEFT 2 OR MORE VIEWS (03/04/2020 15:30 EDT) Anatomical Region Laterality Modality Lower Extremities Left Computed Radio graphy 03/04/2020 15:4 4 EDT Impressions 03/04/2020 15:44 EDT Findings/ Impression: No fracture or malalignment. Soft tissue defect is present at the plantar aspect of the distal phalanx of the great toe. No associated osseous erosion. Minimal osteoarthrosis of the interphalangeal joint. Swelling of the great toe noted. Narrative 03/04/2020 15:44 EDT XR TOE LEFT 2 OR MORE VIEWS ??03/04/2020 3:25 PM Clinical History/Comments: Chronic Diabetic ulcer with infection; questioning osteomyelitis Comparison: None relevant Technique: 3 views of the left great toe. Procedure Note Wilian Wellington MD - 03/04/2020 XR TOE LEFT 2 OR MORE VIEWS 03/04/2020 3:25 PM Clinical History/Comments: Chronic Diabetic ulcer with infection; questioning osteomyelitis Comparison: None relevant Technique: 3 views of the left great toe. IMPRESSION Findings/ Impression: No fracture or malalignment. Soft tissue defect is present at the plantaraspect of the distal phalanx of the great toe. No associated osseouserosion. Minimal osteoarthrosis of the interphalangeal joint. Swelling ofthe great toe noted. Scott Harrington MD [facility] ORDERABLES * BACTERIAL CULTURE, BLOOD (03/04/2020 15:20 EDT) Organism ID No Growth at 5 days 03/09/2020 15:45 EDT [facility] Blood VENOUS BLOOD / Unknown Blood Culture / Unknown 03/04/2020 15:20 EDT 03/04/2020 15:38 EDT Scott Harrington MD MICROBIOLOGY - GENER AL ORDERABLES Performing Organization Address [facility] [[email or web address]] Co de Phone Number [facility] [address] [place] [address] * (ABNORMAL) GLUCOSE, SERUM (03/04/2020 15:03 EDT) Glucose 273(H) 70 - 100 mg/dL 03/04/2020 15:40 EDT [facility] Blood VENOUS BLOOD / Unknown Venipuncture / Unknown 03/04/2020 15:03 EDT 03/04/2020 15:11 EDT Scott Harrington MD CHEMISTRY & BLOOD GA S ORDERABLES Performing Organization Address [facility] de Phone Number [facility] [address] [place] [address] * (ABNORMAL) CREATININE (03/04/2020 15:03 EDT) Creatinine 0.41(L) 0.52 - 1.04 mg/dL 03/04/2020 15:40 EDT [facility] eGFR 135 >60 mL/min/1.7 3m2 03/04/2020 15:40 EDT [facility] Comment:eGFR calculated usin g CKD-EPI equation for non- Americans. Multiply eGFR by 1.16 for patients. Blood VENOUS BLOOD / Unknown Venipuncture / Unknown 03/04/2020 15:03 EDT 03/04/2020 15:11 EDT Scott Harrington MD CHEMISTRY & BLOOD GA S ORDERABLES Performing Organization Address [facility]/ZIP Co de Phone Number [facility] [address] [place] [address] * BUN (03/04/2020 15:03 EDT) BUN 13 10 - 26 mg/dL 03/04/2020 15:43 EDT [facility] Comment: Slight hemolysis identified, interpret with caution as results may be affected due to hemolysis. Blood VENOUS BLOOD / Unknown Venipuncture / Unknown 03/04/2020 15:03 EDT 03/04/2020 15:11 EDT Scott Harrington MD CHEMISTRY & BLOOD GA S ORDERABLES Performing Organization Address [facility] de Phone Number [facility] [address] [place] [address] * ELECTROLYTES (03/04/2020 15:03 EDT) Sodium 140 136 - 145 mEq/L 03/04/2020 15:43 EDT [facility] Potassium 4.3 3.5 - 5.0 mEq/L 03/04/2020 15:43 EDT [facility] Comment: Slight hemolysis identified, interpret with caution as hemolysis will elevate potassium result. NOTE: Interpret with caution. Prolonged sample storage may alter the result. Chloride 99 96 - 110 mEq/L 03/04/2020 15:43 EDT [facility] CO2 Total 30 22 - 32 mEq/L 03/04/2020 15:43 EDT [facility] Comment: NOTE: Interpret with caution. Prolonged sample storage may alter the result. Blood VENOUS BLOOD / Unknown Venipuncture / Unknown 03/04/2020 15:03 EDT 03/04/2020 15:11 EDT Scott Harrington MD CHEMISTRY & BLOOD GA S ORDERABLES Performing Organization Address [facility] [[email or web address]] Co de Phone Number [facility] [address] [place] [address] * (ABNORMAL) SED. RATE:WESTERGREN (03/04/2020 15:03 EDT) Sed Rate 54(H) 0 - 20 mm/hr 03/04/2020 16:19 EDT [facility] Blood VENOUS BLOOD / Unknown Venipuncture / Unknown 03/04/2020 15:03 EDT 03/04/2020 15:11 EDT Scott Harrington MD HEMATOLOGY & PF4 ORD ERABLES Performing Organization Address City/[facility]/ZIP Co de Phone Number [facility] [address] [place] [address] * (ABNORMAL) C REACTIVE PROTEIN (03/04/2020 15:03 EDT) Pathologist [facility] C-Reactive Protein 33.5(H) <10.0 mg/L 03/04/2020 15:40 EDT [facility] Blood VENOUS BLOOD / Unknown Venipuncture / Unknown 03/04/2020 15:03 EDT 03/04/2020 15:11 EDT Scott Harrington MD CHEMISTRY & BLOOD GA S ORDERABLES Performing Organization Address [facility] [[email or web address]] Co de Phone Number [facility] [address] [place] [address] * (ABNORMAL) COMPLETE BLOOD COUNT (03/04/2020 15:03 EDT) [facility] WBC 14.64(H) 4.00 - 12.40 K/cmm 03/04/2020 15:30 [facility] RBC 4.58 3.86 - 5.04 M/cmm 03/04/2020 15:30 [facility] Hemoglobin 14.1 11.6 - 15.2 gm/dL 03/04/2020 15:30 [facility] HCT 40.0 34.9 - 44.4 % 03/04/2020 15:30 [facility] MCV 87 81 - 98 fl 03/04/2020 15:30 [facility] MCH 30.8 26.7 - 33.3 pg 03/04/2020 15:30 [facility] MCHC 35.3 32.1 - 35.9 gm/dL 03/04/2020 15:30 [facility] RDW-CV 12.3 <14.7 % 03/04/2020 15:30 [facility] RDW-SD 39.5 <50.4 fl 03/04/2020 15:30 [facility] PLT 414(H) 141 - 377 K/cmm 03/04/2020 15:30 EDT [facility] MPV 9.8 9.5 - 12.7 fl 03/04/2020 15:30 EDT [facility] Blood VENOUS BLOOD / Unknown Venipuncture / Unknown 03/04/2020 15:03 EDT 03/04/2020 15:11 EDT Scott Harrington MD HEMATOLOGY & PF4 ORD ERABLES [facility] [address] [place] [address] * HOLD SST (03/04/2020 15:03 EDT) Hold Hold 03/04/2020 16:15 EDT [facility] Blood VENOUS BLOOD / Unknown Venipuncture / Unknown 03/04/2020 15:03 EDT 03/04/2020 15:11 EDT Mayank Cruz MD LAB INFO SERVICE AND SUPPORT & PHONE RESULT Performing Organization Address City/[facility]/ZIP Co de Phone Number [facility] [address] [place] [address] * HOLD LAVENDER TOP (03/04/2020 15:03 EDT) Hold Hold 03/04/2020 16:15 EDT [facility] Blood VENOUS BLOOD / Unknown Venipuncture / Unknown 03/04/2020 15:03 EDT 03/04/2020 15:11 EDT Mayank Cruz MD LAB INFO SERVICE AND SUPPORT & PHONE RESULT [facility] [address] [place] [address] * HOLD GREEN TOP (03/04/2020 15:03 EDT) Hold Hold 03/04/2020 16:15 EDT [facility] Blood VENOUS BLOOD / Unknown Venipuncture / Unknown 03/04/2020 15:03 EDT 03/04/2020 15:11 EDT Mayank Cruz MD LAB INFO SERVICE AND SUPPORT & PHONE RESULT Performing Organization Address City/[facility]/ZIP Co de Phone Number [facility] [address] [place] [address] * HOLD BLUE TOP (03/04/2020 15:03 EDT) Hold Hold 03/04/2020 16:15 EDT [facility] Blood VENOUS BLOOD / Unknown Venipuncture / Unknown 03/04/2020 15:03 EDT 03/04/2020 15:11 EDT Mayank Cruz MD LAB INFO SERVICE AND SUPPORT & PHONE RESULT Performing Organization Address [facility] [[email or web address]] Co de Phone Number [facility] [address] [place] [address] documented in this encounter Visit Diagnoses Diagnosis 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, with necrosis of muscle ([facility])- Primary documented in this encounter Administered Medications Inactive Administered Medications - up to 3 most recent administrations Medication Order MAR Action Action Date Dose Rate Site amoxicillin-clavulanate (AUGMENTIN) 875-125 mg per tablet 1 Tab 1 Tablet, oral, NOW X1, 1 dose, On Tue03/04/20 at 1615, STAT Given 03/04/2020 16:27 EDT 1 Tablet morphine injection 5 mg 5 mg, intravenous, NOW X1, 1 dose, On Tue03/04/20 at 1530, STAT Given 03/04/2020 15:41 EDT 5 mg sulfamethoxazole-trimethoprim (BACTRIM/CO-TRIMOXAZOLE DS) 800-160 mg per tablet 1 Tab 1 Tablet, oral, NOW X1, 1 dose, On Tue03/04/20 at 1615, STAT Given 03/04/2020 16:27 EDT 1 Tablet documented in this encounter Active and Recently Administered Medications Times are shown in EDT. Scheduled Medication Order 03/02/2020 03/03/2020 03/04/2020 amoxicillin-clavulanate (AUGMENTIN) 875-125 mg per tablet 1 Tab (COMPLETED) 1 Tablet, oral, NOW X1, 1 dose, On Tue03/04/20 at 1615, STAT 1627 (Given - Provid er: Eryn Lunsford, RN) morphine injection 5 mg (COMPLETED) 5 mg, intravenous, NOW X1, 1 dose, On Tue03/04/20 at 1530, STAT 1541 (Given - Provid er: Eryn Lunsford, RN) sulfamethoxazole-trimethoprim (BACTRIM/CO-TRIMOXAZOLE DS) 800-160 mg per tablet 1 Tab (COMPLETED) 1 Tablet, oral, NOW X1, 1 dose, On Tue03/04/20 at 1615, STAT 1627 (Given - Provid er: Eryn Lunsford, MARCELO) documented in this encounter Orders Medications Ordered That Stan ht Not Have Been Administered Count Last Ordered Date First Ordered Date morphine (MS IR) tablet 15 mg 1 03/04/2020 documented in this encounter
--- OUTSIDE RECORDS SUMMARY | 2023-12-16 00:42 | XMS_ITS | Encounter Summary ---
Author Organization [facility] Address [address] [place] [address] Care Team Providers Care Budder Name Role Phone Unavailable Primary Care Provider Unavailabl e Reason for Visit * Reason Onset Date Comments Coordination Of Care 03/12/2020 Encounter Details Date Type Department Care Team (Late st Contact Info) Description 03/12/2020 Telephone [facility] Adult Primary Care - [address] [phone] Tonja [facility]C [facility] [address] [place] [phone] Coordination Of Care Social History Tobacco Use [...] Miscellaneous Notes * Telephone Encounter - Eulalia Landers RN - 03/12/2020 1120 EDT Per Jarrett DAWSON pt was admitted s/p failing tx for foot ulcer of left great toe. 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 Options discussed with pt were either amputation or med management. Pt opted to try med management first. She is being discharge on 6 weeks of IV cefazolin and oral flagyl. She was taught how to self administer the cefazolin. She will have weekly labs and referral to home health was placed for them to assist initially with daily dressing changes. Pt will follow up with Dr Navarro in podiatry. No changes otherwise to meds. Pt should also follow up with pcp within the next 1 month. Will notify provider. * Telephone Encounter - Mari Parker - 03/12/2020 1116 EDT Jarrett Dotson called to do a hospital discharge with the office. documented in this encounter Plan of Treatment Upcoming Encounters Date Type Department Care Team (Late st Contact Info) Description 02/21/2024 9:45 EDT Office Visit [facility] Adult Primary Care - [address] [phone] Carrington Calderon MD [address] [phone] 02/27/2024 8:30 EDT Telemedicine [facility] Sleep Program - [address] [phone] Rn, Sleep 02/29/2024 10:30 EDT Appointment [facility] Radiology Nuclear Medicine and PET - [address] [phone] 02/29/2024 14:30 EDT Appointment [facility] Radiology Nuclear Medicine and PET - [address] [phone] 03/01/2024 8:00 EDT Appointment [facility] Radiology Nuclear Medicine and PET - [address] [phone] 03/01/2024 9:30 EDT Appointment [facility] Radiology Nuclear Medicine and PET - [address] [phone] documented as of this encounter Visit Diagnoses Not on filedocumented in this encounter
--- OUTSIDE RECORDS SUMMARY | 2023-12-16 00:42 | XMS_ITS | Encounter Summary ---
Author Organization [facility] Address [address] [place] [address] Care Team Providers Care Sort Manager Name Role Phone Unavailable Primary Care Provider Unavailabl e Encounter Details Date Type Department Care Team ([facility] Contact Info) Description 03/17/2020 Documentation Visit [facility] - [address] [place], [place] [address] Marcel Bustamante Social History Tobacco Use Types [...] encounter Progress Notes * Marcel Bustamante - 03/17/2020 1217 EDT Patient: Cristy Luo is a 34 y.o. female. Allergies: Citalopram, Other - see comments, and Advil [ibuprofen] LDA: PICC Single Lumen 03/11/20 Basilic CAJ with 3CG Valved Power Inject (Active) Assessment: Medication Order Review Plan: Regarding home infusion patient therapy, supplies and follow up. Attempted to contact patient for assessment. Voice mail left. Awaiting return call. MARCEL BUSTAMANTE 03/17/2020 12:17 * Yohana Morales RN - 03/17/2020 1217 EDT Patient: Cristy Luo is a 34 [...] Patient has nearly exhausted all drug/supplies at home Will send more medication and supplies for delivery tomorrow YOHANA MORALES RN 03/17/2020 14:59 * [place], [facility] - 03/17/2020 1217 EDT Patient: Cristy Luo is a 34 [...] home infusion nurse assessment. Labs reviewed from 03/10/20. Patient has nearly exhausted all remaining drug and supplies in the home. Plan: Continue current home infusion therapy with cefazolin 2gm IV every 8 hours for total duration of 6 weeks. Anticipated end date 04/21/20. Mixed and sent enough drug and supplies through 03/26/20. Delivery to pt's home tomorrow. Monitor labs per care plan. PENNY GROVE RPH 03/17/2020 15:07 documented in this encounter Plan of Treatment Upcoming Encounters Date Type Department Care Team (Late st Contact Info) Description 02/21/2024 9:45 EDT Office Visit [facility] Adult Primary Care - [address] [phone] Carrington Calderon MD [address] [phone] 02/27/2024 8:30 EDT Telemedicine [facility] Sleep Program - [address] [phone] Rn, Sleep 02/29/2024 10:30 EDT [facility] - [address] [address] 02/29/2024 14:30 EDT Appointment [facility] Radiology Nuclear Medicine and PET [address] [address] 03/01/2024 8:00 EDT Appointment [facility] Radiology Nuclear Medicine and PET [address] [address] 03/01/2024 9:30 EDT Appointment [facility] Radiology Nuclear Medicine and PET [address] [address] documented as of this encounter Visit Diagnoses Not on filedocumented in this encounter
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
--- OUTSIDE RECORDS SUMMARY | 2023-12-16 00:42 | XMS_ITS | Encounter Summary ---
Author Organization [facility] Address [address] [place] [address] Care Team Providers Care Membership Solicitor Name Role Phone Unavailable Primary Care Provider Unavailabl e Encounter Details Date Type Department Care Team (Late st Contact Info) Description 01/03/2020 Orders Only [facility] Adult Primary Care - [address] [phone] Tonja Alejandro PA-C [address] [place] [address] [place] [phone] Social History Tobacco Use Types Packs/Day [...] No 11/10/2018 documented as of this encounter Ordered Prescriptions Prescription Sig Dispensed Refills Start Date End Da te HYDROcodone-acetaminophen (NORCO) 5-325 mg tablet Take 1 Tab by mouth at bedtime as needed for up to 7 days for Pain. Daily Max: 1 Tab 7 Tab 01/04/2020 01/11/2020 documented in this encounter Progress Notes * Tonja Alejandro PA-C - 01/03/2020 0157 EDT Spoke with patient. She will get a CBC tomorrow morning. Patient has been sleeping much better at night with the hydrocodone. I will send in 1 more prescription for 7 nights. I advised that she should take it only if needed. We will then re-talk next week and we could consider gabapentin for longer term use. She agrees with the plan. She has a follow-up with endocrine in January. documented in this encounter Plan of Treatment Upcoming Encounters Date Type Department Care Team (Late st Contact Info) Description 02/21/2024 9:45 EDT Office Visit [facility] Adult Primary Care - [address] [phone] Carrington Calderon MD 1 [facility] 1 [place] [phone] 02/27/2024 8:30 EDT Telemedicine [facility] Sleep Program - [address] [phone] Rn, Sleep 02/29/2024 10:30 EDT Appointment [facility] Radiology Nuclear Medicine and PET [address] [address] 02/29/2024 14:30 EDT Appointment [facility] Radiology Nuclear Medicine and PET [address] [address] 03/01/2024 8:00 EDT Appointment [facility] Radiology Nuclear Medicine and PET [address] [address] 03/01/2024 9:30 EDT Appointment [facility] Radiology Nuclear Medicine and PET [address] [address] documented as of this encounter Visit Diagnoses Not on filedocumented in this encounter Discontinued Medications Medication Sig Discontinue Reason Start Date End Da te HYDROcodone-acetaminophe n (NORCO) 5-325 mg tablet Take 1 Tab by mouth at bedtime as needed for up to 7 days for Pain. Daily Max: 1 Tab Reorder 12/28/2019 01/03/2020 documented as of this encounter
--- OUTSIDE RECORDS SUMMARY | 2023-12-16 00:42 | XMS_ITS | Encounter Summary ---
Author Organization [facility] Address [address] [place] [address] Care Team Providers Care Air Brake Tester Name Role Phone Unavailable Primary Care Provider Unavailabl e Reason for Visit * Reason Onset Date Comments Wound Infection 03/04/2020 Toe Pain 03/04/2020 Encounter Details Date Type Department Care Team (Late st Contact Info) Description 03/04/2020 Telephone [facility] Adult Primary Care [address] [address] Tonja Alejandro PA-C [address] [place] [address] [place] [phone] Wound Infection; Toe Pain Social History Tobacco Use Types Packs/Day [...] No 11/10/2018 documented as of this encounter Miscellaneous Notes * Telephone Encounter - Jesi Lua RN - 03/04/2020 1115 EDT Spoke with pt, she states she thinks she has an infection in the same whole on toe that she had before. The whole is bigger, deeper and has foul smelling drainage coming from it. She states her wholefoot is swollen, painful and discolored. Advised her to go to the ER for evaluation and will update PCP. Pt agreed with plan and verbalized understanding with no barriers noted. * Telephone Encounter - Janette Littlejohn - 03/04/2020 0940 EDT Reason for Call: Wound Infection and Toe Pain Summary/Symptoms: Patient's called to discuss patient's infected toe. He reports she left avoicemail this morning, but he wanted to call as well, as he is very concerned. Patient is diabetic. Onset and Duration? Unknown Appointment Offered? No, did not have patient on the phone and unclear if she is willing to schedule Janette Littlejohn 03/04/2020 9:40 documented in this encounter Plan of Treatment Upcoming Encounters Date Type Department Care Team (Late st Contact Info) Description 02/21/2024 9:45 EDT Office Visit [facility] Adult Primary Care - [address] [address] Carrington Calderon MD 1 [facility] 1 [place] [phone] 02/27/2024 8:30 EDT Telemedicine [facility] Sleep Program - [address] [address] Rn, Sleep 02/29/2024 10:30 EDT Appointment [facility] Radiology Nuclear Medicine and PET - [address] [phone] 02/29/2024 14:30 EDT Appointment [facility] Radiology Nuclear Medicine and PET - [address] [phone] 03/01/2024 8:00 EDT Appointment [facility] Radiology Nuclear Medicine and PET - [address] [phone] 03/01/2024 9:30 EDT Appointment [facility] Radiology Nuclear Medicine and PET - [address] 648211 documented as of this encounter Visit Diagnoses Not on filedocumented in this encounter
--- OUTSIDE RECORDS SUMMARY | 2023-12-16 00:42 | XMS_ITS | Encounter Summary ---
Author Organization [facility] Address [address] [place] [address] Care Team Providers Care Hone Operator Name Role Phone Unavailable Primary Care Provider Unavailabl e Reason for Visit * Reason Onset Date Comments Follow-up 03/05/2020 Encounter Details Date Type Department Care Team (Late st Contact Info) Description 03/05/2020 Telephone [facility] Adult Primary Care - [address] 922791 Tonja Alejandro PA-C [facility] [address] [place] [phone] Follow-up Social History Tobacco Use Types Packs/Day [...] 13:09 EDT documented as of this encounter Functional [...] * Telephone Encounter - Karen Trujillo - 03/06/2020 1617 EDT Zoom link has been sent to the patient. * Telephone Encounter - Benita Thompson RN - 03/06/2020 1613 EDT Spoke to the patient. She says that she has had to change the dressing on her left toe 3 times today. The pain is much worse today which she says was so bad that she vomited. Patient scheduled for a Televideo for right now with Dr. Ferrer. BENITA THOMPSON RN * Telephone Encounter - Mari Parker - 03/06/2020 1515 EDT Pt cb Gave permission for office to speak to about care. Pt awaiting call back about current symptoms vomiting * Telephone Encounter - Karen Trujillo - 03/06/2020 1507 EDT Spoke to Fermin patients and advised him we are unable to discuss anything with him and the patient needs to call us directly. * Telephone Encounter - Dayana Cosme - 03/06/2020 1254 EDT Patient called stating is in a lot of pain due to ulcer on toe. requesting Pain medication to hold her to the apt next week. * Telephone Encounter - Benita Thompson RN - 03/05/2020 1607 EDT Spoke to patient regarding her ED visit yesterday. She was seen for left foot pain due to her GreatToe ulcer, (onset 2 mo ago). Xray obtained, no fracture; swelling and soft tissue defect present per ED documentation. She was prescribed Augmentin and Bactrim which she is taking. She has noticed more bright red bleeding from her ulcer mostly when she gets up to walk to the bathroom. She does not always have it covered as she had been told by the ED to leave it open to air and elevate during the day. F/U ED visit has been scheduled with MARY Perdomo to further discuss her toe ulcer and pain management. She currently is only taking Tylenol ES 1,000 mg 4 times daily for pain control. Tramadol didnot help in the past. Patient is aware to call for a sooner appointment this week or seek care with the weekend clinic ifthe pain or swelling worsens or if the wound drainage becomes worse. Patient verbalized understanding, no barriers present. MARY Perdomo updated. BENITA THOMPSON RN * Telephone Encounter - Janette Littlejohn - 03/05/2020 1308 EDT Patient called to follow up on ED discharge. She reports she was given antibiotics, and she was hoping to discuss these and instructions going forward. documented in this encounter Plan of Treatment Upcoming Encounters Date Type Department Care Team (Late st Contact Info) Description 02/21/2024 9:45 EDT Office Visit [facility] Adult Primary Care - [address] [address] Carrington Calderon MD 1 [facility] 1 [place] [address] 02/27/2024 8:30 EDT Telemedicine [facility] Sleep Program - [address] 164201 Rn, Sleep 02/29/2024 10:30 EDT Appointment [facility] Radiology Nuclear Medicine and PET - [address] [id number] 02/29/2024 14:30 EDT Appointment [facility] Radiology Nuclear Medicine and PET - [address] [id number] 03/01/2024 8:00 EDT Appointment [facility] Radiology Nuclear Medicine and PET - [address] [phone] 03/01/2024 9:30 EDT Appointment [facility] Radiology Nuclear Medicine and PET - [address] [phone] documented as of this encounter Visit Diagnoses Not on filedocumented in this encounter
--- OUTSIDE RECORDS SUMMARY | 2023-12-16 00:42 | XMS_ITS | Encounter Summary ---
Author Organization [facility] Address [address] [place] [address] Care Team Providers Care Survey Field Technician Name Role Phone Carrington Calderon MD Primary Care Provi anders Reason for Visit * Reason Onset Date Comments Blood Sugar Problem 03/18/2020 low;75 Medication Questions 03/18/2020 insulin Encounter Details Date Type Department Care Team (Late st Contact Info) Description 03/18/2020 Telephone [facility] Endocrinology - [facility] [address] [place] [address] Sara Zafar NP 62 [facility] [address] [place] [address] Blood Sugar Problem (low;75); Medication Questions (insulin) Social History Tobacco Use Types Packs/Day Years Used Date Smoking Tobacco: Every Day Cigarettes 0 8.7 Started: 11/10/2010; Last attempted to quit: 08/07/2019 Smokeless Tobacco: Never Alcohol Use Standard Drinks/Week Comments Not Currently 0 (1 standard drink = 0.6 oz pur e alcohol) very rare AUDIT-C Answer Date Recorded Q1: How often [...] Miscellaneous Notes * Telephone Encounter - Valencia Mancilla, CDE - 03/18/2020 1349 EDT Novolog after meals. Date Fasting Lunch Dinner HS Other 10.13 119 75 10.12 115 120 125 10.11 112 150 117 Type: Type 2 Insulin: novolog 9 units after meal plus sliding scale 170 Lantus 30 units Recently discharged from the hospital. Diet: trying to be very consistent with diet. Raisin bran and a bannana Exercise: was more active around the house this am. She is interested in meeting with an RD via zoom for help with diet and carb counting. * Telephone Encounter - MattshashankZaida - 03/18/2020 1325 EDT Reason for Call: Blood Sugar Problem (low;75) and Medication Questions (insulin) Summary/Symptoms: Per patient, she is Type II. Requesting a call back today to discuss how and whenshe should be adjusting insulin. Per patient, takes Novolog after every meal. Per patient, just finished lunch. Per patient, checked prior to eating and it was 75. Zaida Owens 03/18/2020 13:26 documented in this encounter Plan of Treatment Upcoming Encounters Date Type Department Care Team (Late st Contact Info) Description 02/21/2024 9:45 EDT Office Visit [facility] Adult Primary Care - [address] [phone] Carrington Calderon MD [address] [address] 02/27/2024 8:30 EDT Telemedicine [facility] Sleep Program - [address] [address] Rn, Sleep 02/29/2024 10:30 EDT Appointment [facility] Radiology Nuclear Medicine and PET - [address] [phone] 02/29/2024 14:30 EDT Appointment [facility] Radiology Nuclear Medicine and PET - [address] 934751 03/01/2024 8:00 EDT Appointment [facility] Radiology Nuclear Medicine and PET - [address] 470651 03/01/2024 9:30 EDT Appointment [facility] Radiology Nuclear Medicine and PET - [address] [id number] documented as of this encounter Visit Diagnoses Not on filedocumented in this encounter Additional Health Concerns Infection Onset Date Last Indicated Resolved Time R/O COVID-19 08/04/2020 08/04/2020 08/04/2020 11:4 0 EST documented as of this encounter Care Teams Survey Field Technician Relationship Specialty Start Date End Date Carrington Calderon MD 1 [facility] 1 [place] [address] PCP - General Internal Medicine - Primary Care 12/09/20 documented as of this encounter
--- OUTSIDE RECORDS SUMMARY | 2023-12-16 00:42 | XMS_ITS | Encounter Summary ---
Author Organization [facility] Address [address] [place] [address] Care Team Providers Care Simulation Specialist Name Role Phone Unavailable Primary Care Provider Unavailabl e Reason for Visit * Reason Comments Telemedicine Video Visit Encounter Details Date Type Department Care Team (Late st Contact Info) Description 2020 13:00 EDT Telemedicine [facility] Infectious Disease - [address] [phone] Tonja Plascencia, GUSTAVO [address] [facility], [address] [place] [address] Diabetic foot infection ([facility]) (Primary Dx) Social History Tobacco Use Types [...] this encounter Progress Notes * Tonja Plascencia, WENDY - 2020 1300 EDT Infectious Disease Clinic OPAT Progress Note Today's Date: 2020 Visit via: VIDEO. The concept of Telemedicine [...] encounter visit: Tonja Plascencia ?? Patient location: [facility]/town, State: [place] Estimated driving distance from [place]: 25 miles. Demographics HPI: Cristy Luo [...] has notice a decrease in the size. She did have a follow up appointment with Dr. Navarro today but was not aware of this and missed thatappointment. She is tolerating the antibiotics well. She [...] rupture of the FHL tendon; no abscess 03/18/2020 Sed rate 37 WBC 11.64 Creatinine 0.41 C-reactive protein <7.0 Adverse Events Adverse symptoms [...] Tolerating antibiotics well. Dressing changes occurring daily. Missed her appointment with Dr. Navarro today, she will call to set that up again. Will continue weekly zoom check ins. Follow up Is this the final visit specifically for OPAT? No. Next visit date: 03/27/2020. Does patient need alonger than expected course of OPAT? no documented in this encounter Plan of Treatment Upcoming Encounters Date Type Department Care Team (Late st Contact Info) Description 02/21/2024 9:45 EDT Office Visit [facility] Adult Primary Care - [address] [address]301 Carrington Calderon MD [address] [place] [phone] 02/27/2024 8:30 EDT Telemedicine [facility] Sleep Program - [address] [address] Rn, Sleep 02/29/2024 10:30 EDT Appointment [facility] Radiology Nuclear Medicine and PET [address] 078671 02/29/2024 14:30 EDT Appointment [facility] Radiology Nuclear Medicine and PET [address] [address] 03/01/2024 8:00 EDT Appointment [facility] Radiology Nuclear Medicine and PET [address] [address] 03/01/2024 9:30 EDT Appointment [facility] Radiology Nuclear Medicine and PET - [address] [address] documented as of this encounter Visit Diagnoses Diagnosis Diabetic foot infection (HCC-CMS)- Primary Type II or unspecified type diabetes mellitus with other specified manifestations, not stated as uncontrolled documented in this encounter
--- OUTSIDE RECORDS SUMMARY | 2023-12-16 00:42 | XMS_ITS | Encounter Summary ---
Author Organization [facility] Address [address] [place] [address] Care Team Providers Care Automotive Repair Technician Name Role Phone Unavailable Primary Care Provider Unavailabl e Encounter Details Date Type Department Care Team (Latest Contact Info) Description 03/04/2020 Travel Social History Tobacco Use Types Packs/Day [...] Info) Description 02/21/2024 9:45 EDT Office Visit [facility] Adult Primary Care - [address] [phone] Carrington Calderon MD [address] [address] 02/27/2024 8:30 EDT Telemedicine [facility] Sleep Program - [address] [address] Rn, Sleep 02/29/2024 10:30 EDT Appointment [facility] Radiology Nuclear Medicine and PET [address] [id number] 02/29/2024 14:30 EDT Appointment [facility] Radiology Nuclear Medicine and PET [address] [id number] 03/01/2024 8:00 EDT Appointment [facility] Radiology Nuclear Medicine and PET [address] [address] 03/01/2024 9:30 EDT Appointment [facility] Radiology Nuclear Medicine and PET [address] 702141 documented as of this encounter Visit Diagnoses Not on filedocumented in this encounter
--- OUTSIDE RECORDS SUMMARY | 2023-12-16 00:43 | XMS_ITS | Encounter Summary ---
Author Organization [facility] Address [address] [place] [address] Care Team Providers Care Reimbursement Auditor Name Role Phone None, Provider Primary Care Provider Unavailabl e Encounter Details Date Type Department Care Team (Latest Contact Info) Description 10/28/2019 Travel Social History Tobacco Use Types Packs/Day [...] 019 Frequency of Binge Drinking Never 10/06 Comments Yes Sex and Gender Information Value Date Recorded Sex Assigned at Not on file Gender Identity Female 06/18/2019 8:54 EST Sexual Orientation Not on file COVID-19 Exposure Response Date Recorded In the last month, have you been in contact with someone who was confirmed or suspected to have Coronavirus / COVID-19? No / Unsure 10/28/2019 14:22 EDT documented as of this encounter Functional [...] Description 02/21/2024 9:45 EDT Office Visit [facility] Adult Primary Care - [address] [address]251 Carrington Calderon MD 1 [facility] 1 [place] [address] 02/27/2024 8:30 EDT Telemedicine [facility] Sleep Program - [address] [address] Rn, Sleep 02/29/2024 10:30 EDT Appointment [facility] Radiology Nuclear Medicine and PET [address] [id number] 02/29/2024 14:30 EDT Appointment [facility] Radiology Nuclear Medicine and PET [address] [phone] 03/01/2024 8:00 EDT Appointment [facility] Radiology Nuclear Medicine and PET [address] [id number] 03/01/2024 9:30 EDT Appointment [facility] Radiology Nuclear Medicine and PET [address] 161151 documented as of this encounter Visit Diagnoses Not on filedocumented in this encounter Care Teams Reimbursement Auditor Relationship Specialty Start Date End Date None, Provider PCP - General 06/18/19 11/25/19 documented as of this encounter
--- OUTSIDE RECORDS SUMMARY | 2023-12-16 00:43 | XMS_ITS | Encounter Summary ---
Author Organization [facility] Address [address] [place] [address] Care Team Providers Care Quartz Orientator Name Role Phone None, Provider Primary Care Provider Unavailabl e Reason for Visit * Reason Onset Date Comments Surgery Scheduling 11/20/2019 Encounter Details Date Type Department Care Team (Late st Contact Info) Description 11/20/2019 Telephone [facility] Women's Services [facility] [address] [place], [place] [phone] Pamela Sifuentes MD [address] [place] [phone] Surgery Scheduling Social History Tobacco Use Types [...] 019 Frequency of Binge Drinking Never 10/06 Sex and Gender Information Value Date Recorded Sex Assigned at Not on file Gender Identity Female 06/18/2019 8:54 EST Sexual Orientation Not on file COVID-19 Exposure Response Date Recorded In the last month, have you been in contact with someone who was confirmed or suspected to have Coronavirus / COVID-19? No / Unsure 11/02/2019 8:05 EDT documented as of this encounter Functional [...] * Telephone Encounter - Mere Hanna - 11/20/2019 1136 EDT Called pt to schedule surgery. No answer and VMB full. documented in this encounter Plan of Treatment Upcoming Encounters Date Type Department Care Team (Late st Contact Info) Description 02/21/2024 9:45 EDT Office Visit [facility] Adult Primary Care - [address] [phone] Carrington Calderon MD [address] [place] [phone] 02/27/2024 8:30 EDT Telemedicine [facility] Sleep Program - [address] [phone] Rn, Sleep 02/29/2024 10:30 EDT Appointment [facility] Radiology Nuclear Medicine and PET [address] [phone] 02/29/2024 14:30 EDT Appointment [facility] Radiology Nuclear Medicine and PET - [address] 077531 03/01/2024 8:00 EDT Appointment [facility] Radiology Nuclear Medicine and PET [address] [id number] 03/01/2024 9:30 EDT Appointment [facility] Radiology Nuclear Medicine and PET [address] 149031 documented as of this encounter Visit Diagnoses Not on filedocumented in this encounter Care Teams Quartz Orientator Relationship Specialty Start Date End Date None, Provider PCP - General 06/18/19 11/25/19 documented as of this encounter
--- OUTSIDE RECORDS SUMMARY | 2023-12-16 00:43 | XMS_ITS | Encounter Summary ---
Author Organization [facility] Address [address] [place] [address] Care Team Providers Care Assistant Scientist Name Role Phone Unavailable Primary Care Provider Unavailabl e Reason for Visit * Reason Onset Date Comments Medication Problem 11/27/2019 Encounter Details Date Type Department Care Team (Late st Contact Info) Description 11/27/2019 Telephone [facility] Adult Primary Care - [address] [address]301 Tonja Alejandro PA-C [facility] [address] [place] [phone] Medication Problem Social History Tobacco Use [...] Refills Start Date End Da te insulin glargine (LANTUS SOLOSTAR) 100 unit/mL (3 mL) injection pen Inject 25 Units into the skin at bedtime for 90 days. 15 mL 3 11/27/2019 12/04/2019 documented in this encounter Miscellaneous Notes * Telephone Encounter - Donna Porras - 11/27/2019 0903 EDT [facility] states insulin glargine is dispensed in 15 ml quantities. Currently prescription is written for 7.5 ml with 2 refills. [facility] requests clarification of quantity and refills. documented in this encounter Plan of Treatment Upcoming Encounters Date Type Department Care Team (Late st Contact Info) Description 02/21/2024 9:45 EDT Office Visit [facility] Adult Primary Care - [address] [address]591 Carrington Calderon MD 1 [facility] 1 [place] [address] 02/27/2024 8:30 EDT Telemedicine [facility] Sleep Program - [address] 987411 Rn, Sleep 02/29/2024 10:30 EDT Appointment [facility] Radiology Nuclear Medicine and PET - [address] [address] 02/29/2024 14:30 EDT Appointment [facility] Radiology Nuclear Medicine and [address] [address] 03/01/2024 8:00 EDT Appointment [facility] Radiology Nuclear Medicine and PET [address] [address] 03/01/2024 9:30 EDT Appointment [facility] Radiology Nuclear Medicine and PET [address] [address] documented as of this encounter Visit Diagnoses Not on filedocumented in this encounter Discontinued Medications Medication Sig Discontinue Reason Start Date End Da te insulin glargine (LANTUS SOLOSTAR) 100 unit/mL (3 mL) injection pen Inject 25 Units into the skin at bedtime for 90 days. Reorder 11/26/2019 11/27/2019 documented as of this encounter
--- OUTSIDE RECORDS SUMMARY | 2023-12-16 00:43 | XMS_ITS | Encounter Summary ---
Author Organization [facility] Address [address] [place] [address] Care Team Providers Care Technology Analyst Name Role Phone None, Provider Primary Care Provider Unavailabl e Reason for Visit * Reason Onset Date Comments Other 10/16/2019 Follow up. Encounter Details Date Type Department Care Team (Late st Contact Info) Description 10/16/2019 Telephone [facility] Women's Services [address] [address] Jordyn Wolfe, MARCELO Other (Follow up.) Social History Tobacco Use Types Packs/Day Years Used Date Smoking Tobacco: Every Day Cigarettes 0.3 13.1 Started: 11/10/2010 Smokeless Tobacco: Never Alcohol Use Standard Drinks/Week [...] have Coronavirus / COVID-19? No / Unsure 10/11/2019 20:53 EDT documented as of this encounter Functional [...] encounter Miscellaneous Notes * Telephone Encounter - Jordyn Wolfe RN - 10/22/2019 1769 EDT Call to patient. This was a follow-up call after patient miscarriage. Patient did speak to social media marketer Elo Diaz who reached out to me to speak to patient about dates of past miscarriages. Patient had wanted the dates as she wished to have a small ceremony in her process for closure of current miscarriage. She feels well supported by her partner who is part of this process. Reviewed dates as per her appointment with Dr. Lund 10/01/19. Patient has an appointment with Dr. Metcalf on November 02, 2019 to discuss possible tubal ligation. Statesthat she has spent a lot of time considering this with her partner. Patient aware to call back if she needs to speak to nurse or social media marketer. Patient states currently feels well supported and expressed gratitude towards our staff for supporting her also. * Telephone Encounter - Jordyn Wolfe RN - 10/16/2019 1427 EDT Call to social media marketer Lopez Diaz.Asked best number/time to call. documented in this encounter Plan of Treatment Upcoming Encounters Date Type Department Care Team (Late st Contact Info) Description 02/21/2024 9:45 EDT Office Visit [facility] Adult Primary Care - [address] [address]111 Carrington Calderon MD 1 [facility] 1 [place] [phone] 02/27/2024 8:30 EDT Telemedicine [facility] Sleep Program - [address] 075531 Rn, Sleep 02/29/2024 10:30 EDT Appointment [facility] Radiology Nuclear Medicine and PET [address] [address] 02/29/2024 14:30 EDT Appointment [facility] Radiology Nuclear Medicine and PET [address] [address] 03/01/2024 8:00 EDT Appointment [facility] Radiology Nuclear Medicine and PET [address] [address] 03/01/2024 9:30 EDT Appointment [facility] Radiology Nuclear Medicine and PET [address] [address] documented as of this encounter Visit Diagnoses Not on filedocumented in this encounter Care Teams Technology Analyst Relationship Specialty Start Date End Date None, Provider PCP - General 06/18/19 11/25/19 documented as of this encounter
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
--- OUTSIDE RECORDS SUMMARY | 2023-12-16 00:43 | XMS_ITS | Encounter Summary ---
Author Organization [facility] Address [address] [place] [address] Care Team Providers Care Automotive Service Advisor Name Role Phone None, Provider Primary Care Provider Unavailabl e Reason for Visit * Reason Onset Date Comments Pharmacy 10/29/2019 Encounter Details Date Type Department Care Team (Late st Contact Info) Description 10/29/2019 Telephone [facility] Urgent Care - [facility] [address] [place] [address] Monique Gramajo, GUSTAVO [address] [place] [address] Pharmacy Social History Tobacco Use Types Packs/Day Years [...] encounter Miscellaneous Notes * Telephone Encounter - Madeline Phelps RN - 10/29/2019 1154 EDT I spoke with the pharmacy and the patient. Insurance will not cover the magic mouthwash as it is a compound. They can run it through as just lidocaine and the patient can purchase the OTC products and mix it herself in equal parts. The patient was agreeable with this plan. Discussed with Roxanne Marie who agrees with plan of care. * Telephone Encounter - Mark Keane - 10/29/2019 1141 EDT Patient also called wanting to know what was going on. Patient stated Pharmacy closes at 2pm today. * Telephone Encounter - Mark Keane - 10/29/2019 0947 EDT Patient seen 5.24.20 Prescription Regenecare not covered by Insurance. Pharmacy unaware of an alternative. Insurance wouldn't cover because of a compound. documented in this encounter Plan of Treatment Upcoming Encounters Date Type Department Care Team (Late st Contact Info) Description 02/21/2024 9:45 EDT Office Visit [facility] Adult Primary Care - [place] [address] [place] [address] Carrington Calderon MD 1 [facility] 1 [place] [phone] 02/27/2024 8:30 EDT Telemedicine [facility] Sleep Program - [address] [place] [address] Rn, Sleep 02/29/2024 10:30 EDT Appointment [facility] Radiology Nuclear Medicine and PET - [address] [address] 02/29/2024 14:30 EDT Appointment [facility] Radiology Nuclear Medicine and PET - [address] [address] 03/01/2024 8:00 EDT Appointment [facility] Radiology Nuclear Medicine and PET - [address] [address] 03/01/2024 9:30 EDT Appointment [facility] Radiology Nuclear Medicine and PET [address] [address] documented as of this encounter Visit Diagnoses Not on filedocumented in this encounter Care Teams Automotive Service Advisor Relationship Specialty Start Date End Date None, Provider PCP - General 06/18/19 11/25/19 documented as of this encounter
--- OUTSIDE RECORDS SUMMARY | 2023-12-16 00:43 | XMS_ITS | Encounter Summary ---
Author Organization [facility] Address [address] [place] [address] Care Team Providers Care Logistics Research Engineer Name Role Phone None, Provider Primary Care Provider Unavailabl e Encounter Details Date Type Department Care Team (Latest Contact Info) Description 11/02/2019 Travel Social History Tobacco Use Types Packs/Day [...] Info) Description 02/21/2024 9:45 EDT Office Visit [facility] Adult Primary Care - [address] [phone] Carrington Calderon MD 1 [facility] 1 [place] [address] 02/27/2024 8:30 EDT Telemedicine [facility] Sleep Program - [address] [phone] Rn, Sleep 02/29/2024 10:30 EDT Appointment [facility] Radiology Nuclear Medicine and PET [address] [phone] 02/29/2024 14:30 EDT Appointment [facility] Radiology Nuclear Medicine and PET [address] [phone] 03/01/2024 8:00 EDT Appointment [facility] Radiology Nuclear Medicine and PET [address] [phone] 03/01/2024 9:30 EDT Appointment [facility] Radiology Nuclear Medicine and PET [address] [phone] documented as of this encounter Visit Diagnoses Not on filedocumented in this encounter Care Teams Logistics Research Engineer Relationship Specialty Start Date End Date None, Provider PCP - General 06/18/19 11/25/19 documented as of this encounter
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
--- OUTSIDE RECORDS SUMMARY | 2023-12-16 00:43 | XMS_ITS | Encounter Summary ---
Author Organization [facility] Address [address] [place] [address] Care Team Providers Care Merchandise Worker Name Role Phone None, Provider Primary Care Provider Unavailabl e Reason for Visit * Reason Onset Date Comments Other 10/15/2019 Encounter Details Date Type Department Care Team (Late st Contact Info) Description 10/15/2019 Telephone [facility] Women's Services - [address] [address] Jordyn Wolfe, MARCELO Other Social History Tobacco Use Types [...] Telephone Encounter - Jordyn Wolfe RN - 10/15/2019 1039 EDT Call from patient. Patient states that she would like to set up appointment with provider that does tubal surgery. documented in this encounter Plan of Treatment Upcoming Encounters Date Type Department Care Team (Late st Contact Info) Description 02/21/2024 9:45 EDT Office Visit [facility] Adult Primary Care - [address] [phone] Carrington Calderon MD [address] [phone] 02/27/2024 8:30 EDT Telemedicine [facility] Sleep Program - [address] [phone] Rn, Sleep 02/29/2024 10:30 EDT Appointment [facility] Radiology Nuclear Medicine and PET [address] [phone] 02/29/2024 14:30 EDT Appointment [facility] Radiology Nuclear Medicine and PET [address] [phone] 03/01/2024 8:00 EDT Appointment [facility] Radiology Nuclear Medicine and PET [address] [phone] 03/01/2024 9:30 EDT Appointment [facility] Radiology Nuclear Medicine and PET [address] [phone] documented as of this encounter Visit Diagnoses Not on filedocumented in this encounter Care Teams Merchandise Worker Relationship Specialty Start Date End Date None, Provider PCP - General 06/18/19 11/25/19 documented as of this encounter
--- OUTSIDE RECORDS SUMMARY | 2023-12-16 00:43 | XMS_ITS | Encounter Summary ---
Author Organization [facility] Address [address] [place] [address] Care Team Providers Care Broadcast Operations Director Name Role Phone Unavailable Primary Care Provider Unavailabl e Reason for Visit * Reason Comments Social Work Encounter Details Date Type Department Care Team (Late st Contact Info) Description 12/19/2019 Community Health Team [facility] - [address] [address] Eryn Diaz Social History Tobacco Use Types [...] encounter Progress Notes * Eryn Diaz - 12/19/2019 1053 EDT Provided telethx via zoom, though cut session short d/t pt camping with her family ATT. Disc cancellation of pt's tubal procedure that had been sched for 12/13. Pt very upset about this and c/o not feeling heard by Women's Health providers she talked with about reasons for cancellation. Pt rep she was told her A1C levels are too high - c/o not being able to try new med endocronologist rec d/t endocronologist's concerns about defects the med could cause. Pt frustrated because she and her Fermin have been abstaining from sex d/t clearly I'm really fertile and we don't want to go through another loss. Pt said 4 of her past 7 pregnancies were conceived while on control and taking reg (ex: 2 different types bc pills, depo, and nova ring), so she doesn't believe bc is an appro course of action for her. Couple disc Fermin getting a vasectomy, but haven't yet pursued; SW will revisit this possibility. Actively listened to pt's expression and provided validation, support, and safe space. Engaged pt in problem-solving. ATT pt planning to cont abstaining from sex, but I don't want to not be intimatewith my partner for 3 months! Pt c/o not feeling heard and asked how to advocate for herself; SW provided # for Patient and Family Advocacy. Pt will f/u with SW to sched next SW appt once she returns home. [facility] Total Time: 50 min total 35 min via zoom with pt 15 min charting Referral: Patient and Family Advocacy Follow up: Ongoing - pt will f/u with SW to sched SW appt Status: Active documented in this encounter Plan of Treatment Upcoming Encounters Date Type Department Care Team (Late st Contact Info) Description 02/21/2024 9:45 EDT Office Visit [facility] - [address] [address] Carrington Calderon MD [address] [phone] 02/27/2024 8:30 EDT Telemedicine [facility] Sleep Program - [address] [phone] Rn, Sleep 02/29/2024 10:30 EDT Appointment [facility] Radiology Nuclear Medicine and PET [address] [id number] 02/29/2024 14:30 EDT Appointment [facility] Radiology Nuclear Medicine and PET [address] [id number] 03/01/2024 8:00 EDT Appointment [facility] Radiology Nuclear Medicine and PET [address] [address] 03/01/2024 9:30 EDT Appointment [facility] Radiology Nuclear Medicine and PET [address] [id number] documented as of this encounter Visit Diagnoses Not on filedocumented in this encounter
--- OUTSIDE RECORDS SUMMARY | 2023-12-16 00:43 | XMS_ITS | Encounter Summary ---
Author Organization [facility] Address [address] [place] [address] Care Team Providers Care Hairspring Assembler Name Role Phone Unavailable Primary Care Provider Unavailabl e Reason for Visit * Reason Onset Date Comments Ankle Pain 12/04/2019 Encounter Details Date Type Department Care Team (Late st Contact Info) Description 12/04/2019 Telephone [facility] Adult Primary Care - [address] [phone] Tonja Alejandro PA-C [facility] [address] [place] [phone] Ankle Pain Social History Tobacco Use Types Packs/Day [...] Telephone Encounter - Tonja Alejandro PA-C - 12/04/2019 3065 EDT Spoke with patient on the phone. Her MRI for her foot is scheduled in January. I did call over to the MRI department and requested that this be done much sooner as I am trying to rule out osteomyelitis. They are going to get back to me with a sooner date. I called the patient to let her know this. The patient is concerned as she has more swelling in herfoot and leg along with more redness. I told her to keep it elevated. I also told her to zandra wherethe redness stops. If it gets worse, I do think that she needs evaluation in the ED. She denies anysystemic symptoms of infection including fevers or chills. documented in this encounter Plan of Treatment Upcoming Encounters Date Type Department Care Team (Late st Contact Info) Description 02/21/2024 9:45 EDT Office Visit [facility] Adult Primary Care - [address] [phone] Carrington Calderon MD 1 [facility] 1 [place] [phone] 02/27/2024 8:30 EDT Telemedicine [facility] Sleep Program - [address] [address] Rn, Sleep 02/29/2024 10:30 ED[facility] Rad[facility] Nuclear Medicine and PET - [address] [address] 02/29/2024 14:30 EDT Appointment [facility] Radiology Nuclear Medicine and PET - [address] [address] 03/01/2024 8:00 EDT Appointment [facility] Radiology Nuclear Medicine and PET - [address] [address] 03/01/2024 9:30 EDT Appointment [facility] Radiology Nuclear Medicine and PET [address] [address] documented as of this encounter Visit Diagnoses Not on filedocumented in this encounter
--- OUTSIDE RECORDS SUMMARY | 2023-12-16 00:43 | XMS_ITS | Encounter Summary ---
Author Organization [facility] Address [address] [place] [address] Care Team Providers Care Welfare Interviewer Name Role Phone Unavailable Primary Care Provider Unavailabl e Reason for Referral * Radiology Services (Routine) - Closed Specialty Diagnoses / Procedures Referred By Contac t Referred To Contact Radiology Diagnoses Left foot pain Sore on toe Procedures MR FOOT W WO CONTRAST LEFT Tonja Alejandro PA-C [address] [employer] [address] [place] [phone] Referral ID Status Reason Start Date Expiration Date Visits Re quested Visits Authorized [id number] Closed 11/28/2019 1 1 Reason for Visit * Radiology Services (Routine) - Closed Specialty Diagnoses / Procedures Referred By Contac t Referred To Contact Radiology Diagnoses Left foot pain Sore on toe Procedures MR FOOT W WO CONTRAST LEFT Tonja Alejandro PA-C [address] [employer] [address] [place] [phone] Referral ID Status Reason Start Date Expiration Date Visits Re quested Visits Authorized [id number] Closed 11/28/2019 1 1 Encounter Details Date Type Department Care Team (Latest Contact Info) Description 12/05/2019 6:33 EDT - 12/05/2019 10:29 EDT [facility] - [facility] [place] [address] [place] [address] Left foot pain; Sore on toe Discharge Disposition: Home or Self Care Social [...] 90 days. 180 Tab 1 11/26/2019 01/08/2020 traMADoL (ULTRAM) 50 mg tablet Take 1 Tab by mouth every 6 hours as needed for up to 7 days for Pain. Daily Max: 200 mg 28 Tab 11/28/2019 12/05/2019 documented as of this encounter Discharge Disposition Disposition Code Departure Means Destination Home or Self Care documented in this encounter Plan of Treatment Upcoming Encounters Date Type Department Care Team (Late st Contact Info) Description 02/21/2024 9:45 EDT Office Visit [facility] Adult Primary Care - [address] [phone] Carrington Calderon MD [address] [phone] 02/27/2024 8:30 EDT Telemedicine [facility] Sleep Program - [address] [phone] Rn, Sleep 02/29/2024 10:30 EDT Appointment [facility] Radiology Nuclear Medicine and PET [address] [phone] 02/29/2024 14:30 EDT Appointment [facility] Radiology Nuclear Medicine and PET [address] [address] 03/01/2024 8:00 EDT Appointment [facility] Radiology Nuclear Medicine and PET [address] [address] 03/01/2024 9:30 EDT Appointment [facility] Radiology Nuclear Medicine and PET - [address] [address] documented as of this encounter Procedures Procedure Name Priority Date/Time Associated Diagnosis Comments MR FOOT W WO CONTRAST LEFT Routine 12/05/2019 8:09 EDT Left foot pain Sore on toe documented in this encounter Results * MR FOOT W WO CONTRAST LEFT (12/05/2019 8:09 EDT) Anatomical Region Laterality Modality Lower Extremities Left Magnetic Reson ance 12/05/2019 14:5 1 EDT Impressions 12/05/2019 14:51 EDT 1. Superficial ulcer in the plantar soft tissues of the left great toe at the level of the 1st proximal phalanx. No organized or drainable fluid collection or abscess formation seen. 2. No bone marrow signal abnormalities are identified either to suggest osteomyelitis. 3. 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 No intramuscular abscess seen to suggest pyomyositis. 4. Incidental note made of fluid distending the intermetatarsal bursae between the 1st and 2nd, 2nd and 3rd, 3rd and 4th metatarsal head, please correlate clinically for intermetatarsal bursitis. 5. Small focal area of subchondral bone marrow edema in the mid aspect of the 1st metatarsal head which may be on a degenerative or posttraumatic basis. 6. Area of nonspecific bone marrow edema in the lateral aspect of the distal portion of the middle cuneiform, may be stress-related or due to altered biomechanics. 7. Mild cellulitis in the dorsal and medial aspects of the forefoot. Narrative 12/05/2019 14:51 EDT EXAM: FOOT W WO CONTRAST LEFT ??12/05/2019 7:00 AM HISTORY: Open wound on left big toe ( due to diabetes type 2) presenting with left foot/ankle pain- sudden onset. Rule out osteomyelitis COMPARISON: Left foot radiographs dated January 01, 2015. No more recent studies of the left foot are available in our PACS for comparison. TECHNIQUE: Routine multiplanar and multisequence MR images of the left forefoot were obtained before and after the intravenous administration of contrast without complications. FINDINGS: There is a superficial ulcer in the plantar soft tissues of the left great toe at the level of the 1st proximal phalanx, better seen on the sagittal images. No organized or drainable fluid collection or abscess formation seen. No bone marrow signal abnormalities are identified either to suggest osteomyelitis. Specifically, no areas of low T1 signal high T2/STIR signal or areas of abnormal enhancement seen after intravenous contrast administration. 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 No intramuscular abscess seen to suggest pyomyositis. Incidental note made of fluid distending the intermetatarsal bursae between the 1st and 2nd, 2nd and 3rd, 3rd and 4th metatarsal head, please correlate clinically for intermetatarsal bursitis. No discrete Plasencia's neuroma seen. No evidence of fracture, avascular necrosis, or Freiberg's infraction either. There is a small focal area of subchondral bone marrow edema in the mid aspect of the 1st metatarsal head which may be on a degenerative or posttraumatic basis. Likewise, there is an area of nonspecific bone marrow edema in the lateral aspect of the distal portion of the middle cuneiform, may be stress-related or due to altered biomechanics. There is mild cellulitis in the dorsal and medial aspects of the forefoot. Procedure Note Daniel Thompson MD - 12/05/2019 EXAM: MR FOOT W WO CONTRAST LEFT 12/05/2019 7:00 AM HISTORY: Open wound on left big toe ( due to diabetes type 2) presentingwith left foot/ankle pain- sudden onset. Rule out osteomyelitis COMPARISON: Left foot radiographs dated January 01, 2015. No more recentstudies of the left foot are available in our PACS for comparison. TECHNIQUE: Routine multiplanar and multisequence MR images of the leftforefoot were obtained before and after the intravenous administration ofcontrast without complications. FINDINGS: There is a superficial ulcer in the plantar soft tissues of the left greattoe at the level of the 1st proximal phalanx, better seen on the sagittalimages. No organized or drainable fluid collection or abscess formationseen. No bone marrow signal abnormalities are identified either to suggestosteomyelitis. Specifically, no areas of low T1 signal high T2/STIR signalor areas of abnormal enhancement seen after intravenous contrastadministration. There is nonspecific edema in the plantar muscles of theright foot with varying degrees of atrophy and fatty infiltration, likelydue to diabetes-related myositis. No intramuscular abscess seen to suggestpyomyositis. Incidental note made of fluid distending the intermetatarsalbursae between the 1st and 2nd, 2nd and 3rd, 3rd and 4th metatarsal head,please correlate clinically for intermetatarsal bursitis. No discreteMorton's neuroma seen. No evidence of fracture, avascular necrosis, orFreiberg's infraction either. There is a small focal area of subchondral bone marrow edema in the mid aspect of the 1stmetatarsal head which may be on a degenerative or posttraumatic basis.Likewise, there is an area of nonspecific bone marrow edema in the lateralaspect of the distal portion of the middle cuneiform, may bestress-related or due to altered biomechanics. There is mild cellulitis inthe dorsal and medial aspects of the forefoot. IMPRESSION 1. Superficial ulcer in the plantar soft tissues of the left great toe atthe level of the 1st proximal phalanx. No organized or drainable fluidcollection or abscess formation seen. 2. No bone marrow signal abnormalities are identified either to suggestosteomyelitis. 3. 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 No intramuscular abscess seen to suggest pyomyositis. 4. Incidental note made of fluid distending the intermetatarsal bursaebetween the 1st and 2nd, 2nd and 3rd, 3rd and 4th metatarsal head, pleasecorrelate clinically for intermetatarsal bursitis. 5. Small focal area of subchondral bone marrow edema in the mid aspect ofthe 1st metatarsal head which may be on a degenerative or posttraumaticbasis. 6. Area of nonspecific bone marrow edema in the lateral aspect of thedistal portion of the middle cuneiform, may be stress-related or due toaltered biomechanics. 7. Mild cellulitis in the dorsal and medial aspects of the forefoot. Tonja Alejandro PA-C [facility] documented in this encounter Visit Diagnoses Diagnosis Left foot pain Pain in limb Sore on toe documented in this encounter Administered Medications Inactive Administered Medications - up to 3 most recent administrations Medication Order MAR Action Action Date Dose Rate Site gadobutroL (GADAVIST PFS) solution solution 1-15 mmol 1-15 mmol (1-15 mL), intravenous, Once in imaging, 1 dose, Starting on Tue12/05/19 at 0758, Until Tue12/05/19 at 0758, Routine, Imaging Protocol Orders Given 12/05/2019 7:58 EDT 9 mmol documented in this encounter
--- OUTSIDE RECORDS SUMMARY | 2023-12-16 00:43 | XMS_ITS | Encounter Summary ---
Author Organization [facility] Address [address] [place] [address] Care Team Providers Care Enterprise Resource Planner Name Role Phone Unavailable Primary Care Provider Unavailabl e Reason for Referral * Radiology Services (Routine) - Closed Specialty Diagnoses / Procedures Referred By Contac t Referred To Contact Radiology Diagnoses Left foot pain Sore on toe Procedures MR FOOT W WO CONTRAST LEFT Tonja Alejandro PA-C [address] [employer] [address] [place] [address] Referral ID Status Reason Start Date Expiration Date Visits Re quested Visits Authorized [id number] Closed 11/28/2019 1 1 Reason for Visit * Reason Comments Foot Pain left Encounter Details Date Type Department Care Team (Late st Contact Info) Description 11/28/2019 14:30 EDT Office Visit [facility] Adult Primary Care [facility] [address] [place] [address] Tonja Alejandro PA-C [address] [employer] [address] [place] [address] Left foot pain (Primary Dx); Type 2 diabetes mellitus with other specified complication, unspecified whether manager long term care insulin use ([facility]); Sore on toe Social History Tobacco Use Types Packs/Day Years [...] 14:31 EDT documented as of this encounter Last Filed Vital Signs Vital Sign Reading Time Taken Comments Blood Pressure 116/68 11/28/2019 1435 EDT Pulse 88 11/28/2019 1435 EDT Temperature 36.6 ??C (97.9 ??F) 11/28/2019 1435 EDT Respiratory Rate 20 11/28/2019 1435 EDT Oxygen Saturation - - Inhaled Oxygen Concentration - - Weight 93.9 kg (207 lb) 11/28/2019 1435 EDT Height - - Body Mass Index 35.53 10/12/2019 1512 EDT documented in this encounter [...] Dispensed Refills Start Date End Da te traMADoL (ULTRAM) 50 mg tablet Take 1 Tab by mouth every 6 hours as needed for up to 7 days for Pain. Daily Max: 200 mg 28 Tab 11/28/2019 12/05/2019 documented in this encounter Progress Notes * Tnoja Alejandro PA-C - 11/28/2019 1430 EDT Images from the original note were not included. [facility] Primary Care Acute Visit Service Date: 11/28/2019 Patient Profile: Cristy Luo is a 34 y.o. female . Chief Complaint Patient presents with ??? Foot Pain left Subjective Left foot pain Cristy states that 2 weeks ago she developed acute left foot pain. The pain is located on the medial aspect of her ankle. Some the pain radiates into the dorsal part of the foot. She describes thepain as a severe sharp and burning sensation. She also reports throbbing especially when she lays down at night. She denies any injury or trauma. Initially, the foot was more swollen and warm to touch. She has been using a brace. She does have type 2 diabetes that is poorly controlled right now. She reports severe neuropathy in the bilateral feet. She also states that her left foot has an open sore on the great toe. She denies any fevers or chills. Of note, she did go to urgent care at [facility] and had x-rays done and was told that they were normal. Review of Systems: Pertinent positives and negatives noted in HPI. Objective Vitals BP 116/68 Pulse 88 Temp 36.6 ??C (97.9 ??F) (Tympanic) Resp 20 Wt 93.9 kg (207 lb) BMI 35.53 kg/m?? Physical Exam Physical Exam Constitutional: She is oriented to person, place, and time. She appears well- developed and well-nourished. HENT: Head: Normocephalic and atraumatic. Neck: Normal range of motion. Cardiovascular: Normal rate, regular rhythm and normal heart sounds. Pulmonary/Chest: Effort normal and breath sounds normal. Neurological: She is alert and oriented to person, place, and time. Psychiatric: She has a normal mood and affect. Left toe: no drainage, +open sore, decreased sensation to pin prick and light touch on entire left and right bottom of feet. Left ankle: + allodynia, no erythema or swelling noted. Medications Current Medications and allergies were reviewed and updated as appropriate in the EMR Assessment/Plan Cristy was seen today for foot pain. Diagnoses and all orders for this visit: Type 2 diabetes mellitus with other specified complication, unspecified whether manager long term care insulin use ([facility]) Sore on toe/left foot pain This is a 34-year-old female type II diabetic poorly controlled who presents with 2-week history ofsudden onset left ankle pain. She also has a sore on her toe that is deep along with severe peripheral neuropathy of her bilateral feet. Recommend MRI of the foot to rule out osteomyelitis. I also recommend that she have a referral to podiatry as she may need debridement of her lesion of her big toe. The patient is unable to take NSAIDs due to an allergy and has been taking Tylenol with little relief. I will prescribe her a short course of tramadol 50 mg to take up to 4 times daily as needed for 7 days. -CBC and sed rate ordered. - MR FOOT W WO CONTRAST LEFT; Future - AMB CONS/FOLLOW UP PODIATRY; Future - traMADoL (ULTRAM) 50 mg tablet; Take 1 Tab by mouth every 6 hours as needed for up to 7 days for Pain. Daily Max: 200 mg Follow Up- keep follow up as scheduled Tonja Alejandro PA-C 11/29/2019 15:32 I spent a total of 30 minutes in the office with this patient today and greater than half of that time was spent discussing the clinical, objective findings, coordination of care, and treatment recommendations that were considered and reviewed above. Case discussed with Dr. Flower. documented in this encounter Plan of Treatment Upcoming Encounters Date Type Department Care Team (Late st Contact Info) Description 02/21/2024 9:45 EDT Office Visit [facility] Adult Primary Care - [address] [phone] Carrington Calderon MD 1 [facility] 1 [place] [phone] 02/27/2024 8:30 EDT Telemedicine [facility] Sleep Program - [address] [phone] Rn, Sleep 02/29/2024 10:30 EDT Appointment [facility] Radiology Nuclear Medicine and PET - [address] [address] 02/29/2024 14:30 EDT Appointment [facility] Radiology Nuclear Medicine and PET - [address] [address] 03/01/2024 8:00 EDT Appointment [facility] Radiology Nuclear Medicine and PET - [address] [address] 03/01/2024 9:30 EDT Appointment [facility] Radiology Nuclear Medicine and PET - [address] [address] documented as of this encounter Results * MR FOOT W [...] the forefoot. Narrative 12/05/2019 14:51 EDT EXAM: MR FOOT W WO CONTRAST LEFT ??12/05/2019 7:00 [...] aspects of the forefoot. Tonja Alejandro PA-C IMG MRI MURPHYRashaad IBRAHIMNOBLE documented in this encounter Visit Diagnoses Diagnosis Left foot pain- Primary Pain in limb Type 2 diabetes mellitus with other specified complication, unspecified whether manager long term care insulin use ([facility]) Sore on toe Left foot pain Pain in limb Sore on toe documented in this encounter
--- OUTSIDE RECORDS SUMMARY | 2023-12-16 00:43 | XMS_ITS | Encounter Summary ---
Author Organization [facility] Address [address] [place] [address] Care Team Providers Care Aerial Photograph Interpreter Name Role Phone None, Provider Primary Care Provider Unavailabl e Reason for Visit * Reason Comments Advice Only patient states I w ant a tubal, cut, tie, burn. I want no more chances of or miscarriage Encounter Details Date Type Department Care Team (Latest Contact Info) Description 11/02/2019 8:15 EDT Initial consult [facility] Women's Services - [facility] [address] [place] [address] Patricia Sifuentes MD [address] [place] [phone] Consultation for female sterilization (Primary Dx) Social History Tobacco Use [...] Sign Reading Time Taken Comments Blood Pressure 130/90 11/02/2019 0806 EDT Pulse - - Temperature - - Respiratory Rate - - Oxygen Saturation - - Inhaled Oxygen Concentration - - Weight 94.3 kg (207 lb 12.8 oz) 11/02/2019 0806 EDT Height - - Body Mass Index 35.67 10/12/2019 1512 EDT documented in this encounter [...] as of this encounter Progress Notes * Patricia Alvarez MD - 11/02/2019 0815 EDT Department of Gynecology Consultation CC: Desiring permanent sterilization Subjective: Cristy Luo is a 34 y.o. y/o with recurrent miscarriage desiring permanent sterilization. Discussed she has struggled with the losses emotionally and has tried multiple contraception options which have failed for her. Most recently she had a manual evacuation after being diagnosed with amiscarriage at 9w4d on 10/12/2019. She currently fosters 3 children and has a step child. She does not desire future fertility. Reports she has had long discussions with her about other optionsincluding partner vasectomy and LARC options. She firmly desires permanent sterilization with a tubal. She has conceived while on the depo shot, nuva ring and on OCPs and reports she has had infertilityworkups including blood work and ultrasounds. They have not found a cause for her recurrent losses.Denies personal or family history of blood clots. Has history of T2DM with history of morbid obesity weighing >500 lbs, lost 300. Currently on lantus and metformin and reports good control. Discussed LARCs and she declines this. Cut, tie, burn, whatever you have to do I am ready. Past OBHx: G8 P 0080 Ectopic in 2019 treated with MTX D&C or MUAs after each loss Past GynHx: Menses at age 10 Regular cycles at 28 days, 5 days in duration with 3 days of heavy bleeding Denies abnml Paps Denies h/o STIs Denies h/o sexual assault PMedHx: Past Medical History: Diagnosis Date ??? Depression ??? Diabetes mellitus (HCC-CMS) ??? Migraine, unspecified, without mention of intractable migraine without mention of status migrainosus ??? Obesity, unspecified ??? Rh negative state in antepartum period ??? Spontaneous miscarriage 09/04/201502/18, 08/19. Followed by [...] pilonidal cyst) ??? PILONIDAL CYST EXCISION Meds: Current Outpatient Medications on File Prior to Visit Medication Sig Dispense Refill ??? blood glucose meter One Touch Verio Flex meter. 1 Each 0 ??? blood glucose test strips One Touch Verio IQ or other brand compatible with meter and covered by patient's insurance. Testing QID. 100 Each 5 ??? clindamycin (CLEOCIN) 300 mg capsule Take 1 Cap by mouth every 6 hours for 5 days. 20 Cap 0 ??? folic acid (FOLVITE) 1 mg tablet Take 4 Tabs by mouth daily. (Patient not taking: Reported on 11/02/2019) 100 Tab 3 ??? insulin glargine (LANTUS SOLOSTAR) 100 unit/mL (3 mL) injection pen Inject 16 Units into the skin at bedtime. ??? lancets One Touch Delica or other brand compatible with lancing device and covered by patient'sinsurance. 100 Each 5 ??? metFORMIN (GLUCOPHAGE) 500 mg tablet Take 1,000 mg by mouth BID. No current facility-administered medications on file prior to visit. Allergies: Allergies Allergen Reactions ??? Citalopram Other (See Comments) suicidal ideation, approx 2012 ??? Advil [Ibuprofen] Hives Social Hx: Social History Tobacco Use ??? Smoking status: Former Smoker Packs/day: 0.25 Years: 8.00 Pack years: 2.00 Types: Cigarettes Start date: 11/10/2010 Last attempt to quit: 08/07/2019 Years since quittin.2 ??? Smokeless tobacco: Never Used Substance Use Topics ??? Alcohol use: Not Currently Alcohol/week: 0.0 standard drinks Frequency: Monthly or less Drinks per session: 1 or 2 Binge frequency: Never Comment: very rare ??? Drug use: Not Currently Types: Marijuana Comment: 1X/DAY FOR ANXIETY Family Hx: Family History Problem Relation Age of Onset ??? Diabetes Mother ??? Diabetes Maternal Grandmother ??? Diabetes Maternal Grandfather ??? Diabetes Paternal Grandmother ??? Diabetes Paternal Grandfather Objective: Vitals: 11/02/19 0806 BP: 130/90 Weight: 94.3 kg (207 lb 12.8 oz) Body mass index is 35.67 kg/m??. Gen: NAD Psych: AAOx3 CV: RRR Lungs: CTAB Abd: soft, NT, ND +BS Labs: None Imaging: None Assessment: Cristy Luo is a 34 y.o. y/o with recurrent miscarriages desiring permanent sterilization. Discussed other options for contraception and partner vasectomy. Discussed types of sterilizationincluding tubal ligation and laparoscopic bilateral salpingectomy which she desires. Discussed thatthis does not protect again STIs in the future. Patient confirms she understands this is permanent and non-reversible. Reviewed risks/benefits/alternatives of procedure and signed medicaid and [facility] paper consents in clinic today. Plan: - Medicaid and [facility] paper consent signed - Procedure request placed for next OR day after 30 days from now - Will schedule for pre-op appointment if able, otherwise will need consent and H&P on day of surgery Discussed with Dr. Callejas. PATRICIA ALVAREZ MD 11/02/2019 9:08 Obstetrics & Gynecology, PGY-1 Pager [phone] * Callum Callejas MD - 11/02/2019 0815 EDT Attestation statement: I discussed the patient with the resident at the time of the visit. I agree with the findings and the plan of care documented in the resident's note. Callum Callejas MD 11/05/2019 8:11 documented in this encounter Plan of Treatment Upcoming Encounters Date Type Department Care Team (Late st Contact Info) Description 02/21/2024 9:45 EDT Office Visit [facility] Adult Primary Care - [address] [address] Carrington Calderon MD [address] [place] [phone] 02/27/2024 8:30 EDT Telemedicine [facility] Sleep Program - [address] [phone] Rn, Sleep 02/29/2024 10:30 EDT Appointment [facility] Radiology Nuclear Medicine and PET [address] [phone] 02/29/2024 14:30 EDT Appointment [facility] Radiology Nuclear Medicine and PET [address] [phone] 03/01/2024 8:00 EDT Appointment [facility] Radiology Nuclear Medicine and PET [address] [phone] 03/01/2024 9:30 EDT Appointment [facility] Radiology Nuclear Medicine and PET [address] [phone] documented as of this encounter Visit Diagnoses Diagnosis Consultation for female sterilization- Primary Other general counseling and advice for contraceptive management documented in this encounter Discontinued Medications Medication Sig Discontinue Reason Start Date End Da te lidocaine (LIDOCAINE) 2 % solution Mix with equal amount of benadryl and maalox; swish and spit the formula 3-4 times a day 10/28/2019 11/02/2019 documented as of this encounter Care Teams Aerial Photograph Interpreter Relationship Specialty Start Date End Date None, Provider PCP - General 06/18/19 11/25/19 documented as of this encounter
--- OUTSIDE RECORDS SUMMARY | 2023-12-16 00:43 | XMS_ITS | Encounter Summary ---
Author Organization [facility] Address [address] [place] [address] Care Team Providers Care Certified Flight Instructor Name Role Phone Unavailable Primary Care Provider Unavailabl e Encounter Details Date Type Department Care Team (Latest Contact Info) Description 12/04/2019 Travel Social History Tobacco Use Types Packs/Day [...] No 11/10/2018 Cognitive Status Response Date of Assess ent Because of a physical, menta l, or emotional condition, does this person have serious difficulty concentrating, remembering, or making decisions? No 11/10/2018 documented as of this encounter Plan of Treatment Upcoming Encounters Date Type Department Care Team (Late st Contact Info) Description 02/21/2024 9:45 EDT Office Visit [facility] Adult Primary Care - [address] [address] Carrington Calderon MD [address] [phone] 02/27/2024 8:30 EDT Telemedicine [facility] Sleep Program - [address] [phone] Rn, Sleep 02/29/2024 10:30 EDT Appointment [facility] Radiology Nuclear Medicine and PET - [address] [phone] 02/29/2024 14:30 EDT Appointment [facility] Radiology Nuclear Medicine and PET [address] [phone] 03/01/2024 8:00 EDT Appointment [facility] Radiology Nuclear Medicine and PET [address] [phone] 03/01/2024 9:30 EDT Appointment [facility] Radiology Nuclear Medicine and PET - [address] [phone] documented as of this encounter Visit Diagnoses Not on filedocumented in this encounter
--- OUTSIDE RECORDS SUMMARY | 2023-12-16 00:43 | XMS_ITS | Encounter Summary ---
Author Organization [facility] Address [address] [place] [address] Care Team Providers Care Manager Core Name Role Phone None, Provider Primary Care Provider Unavailabl e Reason for Visit * Reason Onset Date Comments COVID-19 11/22/2019 Encounter Details Date Type Department Care Team (Late st Contact Info) Description 11/22/2019 Orders Only [facility] Women's Services [address] [address] Susana Tomlinson, RN Sterilization (Primary Dx) Social [...] of this encounter Progress Notes * Susana Tomlinson RN - 11/22/2019 1151 EDT COVID19 screening ordered for surgery 12/[address] Bran for sterilization. * Mackenzie Kenyon MD - 11/22/2019 1151 EDT Procedure canceled; COVID19 test canceled. documented in this encounter Miscellaneous Notes * Addendum Note - Mackenzie Kenyon MD - 11/22/2019 1151 EDTAddended by: MACKENZIE KENYON on: 12/06/2019 13:49 Modules accepted: Orders documented in this encounter Plan of Treatment Upcoming Encounters Date Type Department Care Team (Late st Contact Info) Description 02/21/2024 9:45 EDT Office Visit [facility] Adult Primary Care - [address] [phone] Carrington Calderon MD [address] [phone] 02/27/2024 8:30 EDT Telemedicine [facility] Sleep Program - [address] [phone] Rn, Sleep 02/29/2024 10:30 EDT Appointment [facility] Radiology Nuclear Medicine and PET [address] [address] 02/29/2024 14:30 EDT Appointment [facility] Radiology Nuclear Medicine and PET [address] [address] 03/01/2024 8:00 EDT Appointment [facility] Radiology Nuclear Medicine and PET [address] [address] 03/01/2024 9:30 EDT Appointment [facility] Radiology Nuclear Medicine and PET [address] [address] documented as of this encounter Visit Diagnoses Diagnosis Sterilization- Primary documented in this encounter Care Teams Manager Core Relationship Specialty Start Date End Date None, Provider PCP - General 06/18/19 11/25/19 documented as of this encounter
--- OUTSIDE RECORDS SUMMARY | 2023-12-16 00:43 | XMS_ITS | Encounter Summary ---
Author Organization [facility] Address [address] [place] [id number] Care Team Providers Care Agriculture Department Chair Name Role Phone None, Provider Primary Care Provider Unavailabl e Reason for Visit * Reason Comments Dental Pain inside lower abscess near gum.bilateral Encounter Details Date Type Department Care Team (Latest Contact Info) Description 10/28/2019 14:26 EDT - 10/28/2019 15:11 EDT Hospital Encounter [facility] [address] [place] [address] Monique Gramajo, GUSTAVO [address] [place] [phone] Gingivitis (Primary Dx) Discharge Disposition: Home or Self Care Social History Tobacco Use Types Packs/Day Years Used Date Smoking Tobacco: Former Cigarettes 0.3 8.7 0 11/10/2010 - 08/07/2019 Smokeless Tobacco: Never Tobacco Cessation:Counseling Given: No Alcohol Use Standard Drinks/Week Comments Not Currently [...] 14:22 EDT documented as of this encounter Last Filed Vital Signs Vital Sign Reading Time Taken Comments Blood Pressure 124/72 10/28/2019 1423 EDT Pulse 90 10/28/2019 1510 EDT Temperature 36.4 ??C (97.5 ??F) 10/28/2019 1423 EDT Respiratory Rate 14 10/28/2019 1423 EDT Oxygen Saturation 100% 10/28/2019 1423 EDT Inhaled Oxygen Concentration - - Weight [...] as of this encounter Discharge Instructions * Attachments The following attachments cannot be sent through Care Everywhere. * Periodontal Conditions (Bengali) documented in this encounter Medications at Time of Discharge Medication Sig Dispensed Refills Start Date End Date blood glucose meter One Touch Verio Flex meter. 1 Each 10/04/2019 12/21/2021 blood glucose test strips One Touch Verio IQ or other brand compatible with meter and covered by patient's insurance. Testing QID. 100 Each 5 10/01/2019 08/11/2020 clindamycin (CLEOCIN) 300 mg capsule Take 1 Cap by mouth every 6 hours for 5 days. 20 Cap 10/28/2019 11/02/2019 folic acid (FOLVITE) 1 mg tablet Take 4 Tabs by mouth daily. 100 Tab 3 10/01/2019 12/05/2019 insulin glargine (LANTUS SOLOSTAR) 100 unit/mL (3 mL) injection pen Inject 10 Units into the skin at bedtime. 11/26/2019 lancets One Touch Delica or other brand compatible with lancing device and covered by patient's insurance. 100 Each 5 10/01/2019 10/01/2020 lidocaine (LIDOCAINE) 2 % solution Mix with equal amount of benadryl and maalox; swish and spit the formula 3-4 times a day 100 mL 10/28/2019 11/02/2019 metFORMIN (GLUCOPHAGE) 500 mg tablet Take 1,000 mg by mouth daily. 11/26/2019 documented as of this encounter Ordered Prescriptions Prescription Sig Dispensed Refills Start Date End Da te lidocaine (LIDOCAINE) 2 % solution Mix with equal amount of benadryl and maalox; swish and spit the formula 3-4 times a day 100 mL 10/28/2019 11/02/2019 clindamycin (CLEOCIN) 300 mg capsule Take 1 Cap by mouth every 6 hours for 5 days. 20 Cap 10/28/2019 11/02/2019 documented in this encounter Discharge Disposition Disposition Code Departure Means Destination Home or Self Mcfp documented in this encounter ED Notes * Monique Gramajo, MANAGER UTILIZATION MANAGEMENT - 10/28/2019 1500 EDT DOS: 10/28/2019 Chief Complaint Patient presents with ??? Dental Pain inside lower abscess near gum.bilateral The patient is a 34 y.o. female who presents today with Dental Pain (inside lower abscess near gum.bilateral) Onset a few days ago her gums became very inflamed. She has a gum disorder where her gums are deteriorating and she is under the care of a dentist. She was recently pregant but miscarried about 2 weeks ago. The swelling and tenderness started the next week or so. She denies any fever or chills, no drainage, has not tried any treatment. Did [facility] but they can't see her until Tuesday. She is type 2 diabetic. On insulin and metformin. Review of Systems Constitutional: Negative for chills, fatigue and fever. HENT: Positive for dental problem and mouth sores. Negative for congestion, facial swelling, sore throat and trouble swallowing. Eyes: Negative. Respiratory: Negative. Cardiovascular: Negative. Endocrine: Negative. Genitourinary: Negative. Musculoskeletal: Negative. Skin: Negative. Allergic/Immunologic: Positive for immunocompromised state (just from diabetes). Neurological: Negative for dizziness and headaches. Hematological: Negative. Psychiatric/Behavioral: Negative. No current facility-administered medications for this encounter. [...] tablet Take 4 Tabs by mouth daily. 100 Tab 3 ??? insulin glargine (LANTUS SOLOSTAR) 100 unit/mL (3 mL) injection pen Inject 10 Units into the skin at bedtime. ??? lancets One Touch Delica or other brand compatible with lancing device and covered by patient'sinsurance. 100 Each 5 ??? lidocaine (LIDOCAINE) 2 % solution Mix with equal amount of benadryl and maalox; swish and spitthe formula 3-4 times a day 100 mL 0 ??? metFORMIN (GLUCOPHAGE) 500 mg tablet Take 1,000 mg by mouth daily. Allergies Allergen Reactions ??? Citalopram Other (See Comments) suicidal ideation, approx 2012 ??? Advil [Ibuprofen] Hives Patient Active Problem List Diagnosis Date Noted ??? with type 2 diabetes mellitus in first trimester 10/01/2019 1. T2DM Datin05/12/2020, by Ultrasound, Patient's last menstrual period was 05/30/2019 (exact date)., notconsistent with 6w0d scan labs: Ordered and pending [...] PCR results found No results found for: [id number] HgA1c [ ] 1T pending [ ] [...] - patient denies history [ ] Contraception ??? complicated by previous recurrent miscarriages in first trimester 10/01/2019 ??? Rh negative status during 10/01/2019 ??? Obesity affecting in first trimester 10/01/2019 ??? High-risk in first trimester 10/01/2019 Global updated under problem diabetes. ??? Chronic left ear pain 09/04/2015 ??? Family history of rheumatoid arthritis 09/04/2015 Mother, pt with chronic back pain. Told arthritis in spine in teen yrs. ??? Type 2 diabetes mellitus (HCC-CMS) 09/03/2015 Dx approx age 25. Controlled with lifestyle behaviors, wt loss. Had taken lantus in past 80u, Followed by endocrine in [facility]. Stopped few yrs ago until this past month. ??? Anxiety and depression 05/12/2010 Onset teen yrs. Treated with citalopram in approx 2012 - had SI, treated at [facility]. Marijuana prn to help with stress/anxiety sx. ??? Obesity ICD10 Update Auto Replacement ??? Migraine with aura and without status migrainosus, not intractable Dx approx age 15. Average 2/ month. Chronic left ear ?trigger. Migraine with aura - pt experiences shooting stars mins before onset of leon every time. Past Medical History: Diagnosis Date ??? Depression [...] Diabetes Paternal Grandmother ??? Diabetes Paternal Grandfather BP 124/72 Pulse 90 Temp 97.5 ??F (36.4 ??C) Resp 14 LMP 05/30/2019 (Exact Date) SpO2 100% Physical Exam Constitutional: She is oriented to person, place, and time. She appears well- developed and well-nourished. No distress. HENT: Nose: Nose normal. Gums in all areas swollen, red, very tender; did not see ulcerations, but she does have areas wheregums are receding, exposing the dentin of her teeth; Face is very tender bilaterally over the teeth, but she does not have any swelling, no lymphadenopathy; Pulmonary/Chest: Effort normal. Lymphadenopathy: She has no cervical adenopathy. Neurological: She is alert and oriented to person, place, and time. Skin: Skin is warm and dry. Psychiatric: She has a normal mood and affect. Nursing note and vitals reviewed. Consult orders: None PCP: Provider None No results found for this visit on 10/28/19. Radiology orders: None Imaging Results None No orders to display Procedures URGENT CARE COURSE A medical screening exam was performed. Patient with a history of gum disease (patient does not know the diagnosis) with inflammation/swelling/pain of her gums with some blistering/drainage Will treat for possible necrotizing gingivitis with clinda 300qid x 5 days and magic mouthwash for the pain. She will see her dentist kimberly for further eval and treatment ASSESSMENT AND PLAN Final diagnoses: Gingivitis Dr. Fran Blanco was available for consultation during my care of this patient. DISPOSITION: Discharged The patient's pain was managed to an adequate level weighing risk vs. benefit of further medications. Upon departure from [facility], the patient's pain was 6 on a zero to ten scale. Any further pain treatment will be at the discretion of the provider following up with the patient based on their clinical assessment . Condition at departure from the [facility] : Stable MDM 10/28/2019 15:46 * Jeanne Presley LPN - 10/28/2019 1431 EDT Pt identified by name and , Pt reports abscess on lower right and left side. Left side has been draining clear liquid. No fever or chills. Pt reports it feels like a blister. * Mica Narayanan RN - 10/28/2019 1426 EDT Negative covid screening documented in this encounter Plan of Treatment Upcoming Encounters Date Type Department Care Team (Late st Contact Info) Description 02/21/2024 9:45 EDT Office Visit [facility] Adult Primary Care - [address] [phone] Carrington Calderon MD [address] [phone] 02/27/2024 8:30 EDT Telemedicine [facility] Sleep Program - [address] [phone] Rn, Sleep 02/29/2024 10:30 EDT Appointment [facility] Radiology Nuclear Medicine and PET - [address] [address] 02/29/2024 14:30 EDT Appointment [facility] Radiology Nuclear Medicine and PET [address] [address] 03/01/2024 8:00 EDT Appointment [facility] Radiology Nuclear Medicine and PET [address] [address] 03/01/2024 9:30 EDT Appointment [facility] Radiology Nuclear Medicine and PET [address] [address] documented as of this encounter Visit Diagnoses Diagnosis Gingivitis- Primary Chronic gingivitis, plaque induced documented in this encounter Care Teams Agriculture Department Chair Relationship Specialty Start Date End Date None, Provider PCP - General 06/18/19 11/25/19 documented as of this encounter
--- OUTSIDE RECORDS SUMMARY | 2023-12-16 00:43 | XMS_ITS | Encounter Summary ---
Author Organization [facility] Address [address] [place] [address] Care Team Providers Care Catalogue Compiler Name Role Phone Unavailable Primary Care Provider Unavailabl e Encounter Details Date Type Department Care Team (Late st Contact Info) Description 11/28/2019 Orders Only [facility] Radiology - Main [place] [address] [place] [address] Tracey Veloz MD [address] [place], [place] [phone] Social History Tobacco Use Types Packs/Day Years [facility] [address] [address] Carrington Calderon MD [address] [phone] 02/27/2024 8:30 EDT Telemedicine [facility] Sleep Program - [address] [address] Rn, Sleep 02/29/2024 10:30 EDT Appointment [facility] Radiology Nuclear Medicine and PET [address] [phone] 02/29/2024 14:30 EDT Appointment [facility] Radiology Nuclear Medicine and PET [address] [address] 03/01/2024 8:00 EDT Appointment [facility] Radiology Nuclear Medicine and PET [address] [phone] 03/01/2024 9:30 EDT Appointment [facility] Radiology Nuclear Medicine and PET [address] [phone] documented as of this encounter Visit Diagnoses Not on filedocumented in this encounter
--- OUTSIDE RECORDS SUMMARY | 2023-12-16 00:43 | XMS_ITS | Encounter Summary ---
Author Organization [facility] Address [address] [place] [address] Care Team Providers Care Welding Machine Operator Submerged Arc Name Role Phone Unavailable Primary Care Provider Unavailabl e Reason for Visit * Reason Onset Date Comments Results 12/05/2019 Encounter Details Date Type Department Care Team (Late st Contact Info) Description 12/05/2019 Telephone [facility] Adult Primary Care - [address] [phone] Tonja Alejandro PA-C [address] [place] [address] [place] [phone] Results Social History Tobacco Use Types Packs/Day [...] Dispensed Refills Start Date End Da te cephALEXin (KEFLEX) 500 mg capsule Take 1 Cap by mouth 4 times daily for 7 days. 28 Cap 12/05/2019 12/12/2019 documented in this encounter Miscellaneous Notes * Telephone Encounter - Tonja Alejandro PA-C - 12/05/2019 4978 EDT I spoke with patient regarding MRI results. IMPRESSION ?? 1. Superficial ulcer in the plantar soft tissues of the left great toe at the level of the 1st proximal phalanx. No organized or drainable fluid collection or abscess formation seen. ?? 2. No bone marrow signal abnormalities are identified either to suggest osteomyelitis. ?? 3. 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 No intramuscular abscess seen to suggestpyomyositis. ?? 4. Incidental note made of fluid distending the intermetatarsal bursae between the 1st and 2nd, 2ndand 3rd, 3rd and 4th metatarsal head, please correlate clinically for intermetatarsal bursitis. ?? 5. Small focal area of subchondral bone marrow edema in the mid aspect of the 1st metatarsal head which may be on a degenerative or posttraumatic basis. ?? 6. Area of nonspecific bone marrow edema in the lateral aspect of the distal portion of the middle cuneiform, may be stress-related or due to altered biomechanics. ?? 7. Mild cellulitis in the dorsal and medial aspects of the forefoot. Plan: I will send in a course of antibiotics, Keflex 500 mg 4 times daily for 7 days to treat the mild cellulitis. She will contact her HANDCREW FOREMAN and inform this of them as she is supposed to have surgery on 12/14/2019. She will follow-up with me on December 27. A podiatry referral is already in. Could consider orthopedic referral as well. documented in this encounter Plan of Treatment Upcoming Encounters Date Type Department Care Team (Late st Contact Info) Description 02/21/2024 9:45 EDT Office Visit [facility] Adult Primary Care - [address] [address] Carrington Calderon MD [address] [place] [phone] 02/27/2024 8:30 EDT Telemedicine [facility] Sleep Program - [address] [address] Rn, Sleep 02/29/2024 10:30 EDT Appointment [facility] Radiology Nuclear Medicine and PET [address] 130751 02/29/2024 14:30 EDT Appointment [facility] Radiology Nuclear Medicine and PET [address] [id number] 03/01/2024 8:00 EDT Appointment [facility] Radiology Nuclear Medicine and PET [address] [address] 03/01/2024 9:30 EDT Appointment [facility] Radiology Nuclear Medicine and PET [address] [phone] documented as of this encounter Visit Diagnoses Not on filedocumented in this encounter
--- OUTSIDE RECORDS SUMMARY | 2023-12-16 00:43 | XMS_ITS | Encounter Summary ---
Author Organization [facility] Address [address] [place] [address] Care Team Providers Care Booth Usher Name Role Phone Unavailable Primary Care Provider Unavailabl e Encounter Details Date Type Department Care Team (Latest Contact Info) Description 11/28/2019 Travel Social History Tobacco Use Types Packs/Day [...] [facility] Adult Primary Care - [address] [address] Carrington Calderon MD [address] [phone] 02/27/2024 8:30 EDT Telemedicine [facility] Sleep Program - [address] [phone] Rn, Sleep 02/29/2024 10:30 EDT Appointment [facility] Radiology Nuclear Medicine and PET - [address] [phone] 02/29/2024 14:30 EDT Appointment [facility] Radiology Nuclear Medicine and PET [address] [phone] 03/01/2024 8:00 EDT Appointment [facility] Radiology Nuclear Medicine and PET [address] [phone] 03/01/2024 9:30 EDT Appointment [facility] Radiology Nuclear Medicine and PET - [address] [phone] documented as of this encounter Visit Diagnoses Not on filedocumented in this encounter
--- OUTSIDE RECORDS SUMMARY | 2023-12-16 00:43 | XMS_ITS | Encounter Summary ---
Author Organization [facility] Address [address] [place] [address] Care Team Providers Care Supervisor Concrete Stone Finishing Name Role Phone Unavailable Primary Care Provider Unavailabl e Reason for Visit * Reason Onset Date Comments Labs Only 12/05/2019 Encounter Details Date Type Department Care Team (Late st Contact Info) Description 12/05/[address] [facility] Women's Services - [address] [phone] Charu Flynn MD [address] [facility], [address] [place] [address] Labs Only Social History Tobacco Use Types [...] encounter Miscellaneous Notes * Telephone Encounter - Debi Tapia - 12/05/2019 1018 EDT Pre Op calling before they do Cristy's pre op call. Wanted to check in with the office in regards to some abnormal lab results they are seeing in Cristy's chart. Wanting to relay that information to make sure our team was aware. If needed you can call Pre Op back at [phone]. documented in this encounter Plan of Treatment Upcoming Encounters Date Type Department Care Team (Late st Contact Info) Description 02/21/2024 9:45 EDT Office Visit [facility] Adult Primary Care - [address] [phone] Carrington Calderon MD [address] [phone] 02/27/2024 8:30 EDT Telemedicine [facility] Sleep Program - [address] [phone] Rn, Sleep 02/29/2024 10:[address] [facility] Radiology Nuclear Medicine and PET - [address] [phone] 02/29/2024 14:30 ED[facility] Radiology Nuclear Medicine and PET - [address] [address] 03/01/2024 8:00 EDT Appointment [facility] Radiology Nuclear Medicine and PET - [address] [address] 03/01/2024 9:[address] [facility] Radiology Nuclear Medicine and PET - [address] [phone] documented as of this encounter Visit Diagnoses Not on filedocumented in this encounter
--- OUTSIDE RECORDS SUMMARY | 2023-12-16 00:43 | XMS_ITS | Encounter Summary ---
Author Organization [facility] Address [address] [place] [address] Care Team Providers Care Liability Claims Manager Name Role Phone Unavailable Primary Care Provider Unavailabl e Encounter Details Date Type Department Care Team (Latest Contact Info) Description 12/05/2019 10:30 EDT - 12/05/2019 23:59 EDT Hospital Encounter [facility] Pre-Surgical Testing [address] [place], [place] [phone] Discharge Disposition: Home or Self Care Social [...] 15:26 EDT documented as of this encounter Last Filed Vital Signs Vital Sign Reading Time Taken Comments Blood Pressure - - Pulse - - Temperature - - Respiratory Rate - - Oxygen Saturation - - Inhaled Oxygen Concentration - - Weight 89.8 kg (198 lb) 12/05/2019 1037 EDT Height 162.6 cm (5' 4) 12/05/2019 1037 EDT Body Mass Index 33.99 12/05/2019 1037 EDT documented in this encounter Functional Status [...] by patient's insurance. Testing QID. 100 Each 10/01/2019 08/11/2020 cephALEXin (KEFLEX) 500 mg capsule Take 1 Cap by mouth 4 times daily for 7 days. 28 Cap 12/05/2019 12/12/2019 insulin aspart U-100 (NOVOLOG FLEXPEN) 100 unit/mL [...] and covered by patient's insurance. 100 Each 10/01/2019 10/01/2020 metFORMIN (GLUCOPHAGE) 500 mg tablet Take 2 Tabs by mouth daily for 90 days. 180 Tab 1 11/26/2019 01/08/2020 documented as of this encounter Discharge Disposition Disposition Code Departure Means Destination Home or Self Care documented in this encounter Progress Notes * Thomas Plascencia, RN - 12/05/2019 1058 EDT COVID 19 Screening Perioperative at time of PAT Please document by exception (only check those that apply). Have you had any of the following symptoms recently? Yes Chronic ? Cough yes Yes- smokers cough Shortness of breath or difficulty breathing Fever Chills Fatigue Muscle or body aches Headache New loss of taste or smell Sore throat Congestion or runny nose Rash Nausea, vomiting, or diarrhea (rare in adults. More common in children) Please elaborate if yes: If a chronic symptom is reported use your judgement if an anesthesia review is needed. Have you been in close contact with someone who has been diagnosed with Covid 19?no (close contact, within 6 feet of any [...] instruct them to call us back at [phone] to report symptoms (If patient is in Surgical Admissions and answers yes, please notify Surgery and Anesthesia team). Follow proper precautions- yellow mask to patient/family. [place]: Visitor Policy: OP- one non-sick escort in waiting room, no visitors/escort in PeriOp Exceptions: Child-1 parent, special needs- 1 caregiver For safety concerns on ride home: second parent or caregiver may come to hospital but will have to wait in cell phone lot IP- One non-sick visitor/escort in waiting room, no visitors/escort in PeriOp. One designated visitor is allowed to visit the patient on the in patient unit. Pediatric patient: ??? Both parents can come with child DOS, one is allowed with child in PreOp/PACU, one has to wait in the waiting room ??? Due to COVID 19 no parents are allowed to go back to OR. ??? Explain IV/Mask induction. IV or mask will be available for pedi patients who are asymptomatic and test COVID negative. ??? If parent declines or no test results, Pt will get IV in PreOp, except PE tubes. For State tracking purposes, the parents of these children will be asked to consent to having their child COVID tested under anesthesia. ??? Unsedated children will be allowed one parents in the OR room for support. ??? RN to provide education on IV's and request Emla to be placed (RX from PCP) prior to coming in with them. ? ? Patient > 1 yo: Emla takes one hour to work, place quarter size amount on 4 places - top of hands and inner elbow, cover with tegaderm or saran wrap. Children under age of 16 y.o. are not permitted. Only ADA service animals are permitted into the hospital. All other animals, including previously approved therapy/support animals, are not allowed at this time. (No animals will be allowed into Preop, OR, or PACU) Visitor Policy Janet Crocker: - No visitors - Patients should be dropped at the front door - Same exceptions apply as main campus: children and special needs - Visitors/rides home are to wait in the parking lot or be within 15 mins away - Visitors must have mask for pickup. TOOLING SUPERVISOR will provide pick up man instructions when Pt is ready for DC. documented in this encounter OR Notes * Preprocedure Instructions - Thomas Plascencia RN - 12/05/2019 1100 EDT Cristy Luo has been instructed as follows regarding medication administration for the day ofthe scheduled procedure. Date of Surgery: 12/14/19 Instructions for Taking Medications Day of Surgery Medication Sig Last Dose Hold DOS Take DOS blood glucose meter One Touch Verio Flex meter. blood glucose test strips One Touch Verio IQ or other brand compatible with meter and covered by patient's insurance. Testing QID. insulin aspart U-100 (NOVOLOG FLEXPEN) 100 unit/mL (3 mL) injectable pen Inject 4-6 Units into the skin 3 times daily with meals. x insulin glargine (LANTUS SOLOSTAR) 100 unit/mL (3 mL) injection pen Inject 30 Units into the skin at bedtime for 90 days. Take 80%, 24units night before- Yes lancets One Touch Delica or other brand compatible with lancing device and covered by patient's insurance. metFORMIN (GLUCOPHAGE) 500 mg tablet Take 2 Tabs by mouth daily for 90 days. Patient taking differently: Take 1,000 mg by mouth 2 times daily. x traMADoL (ULTRAM) 50 mg tablet Take 1 Tab by mouth every 6 hours as needed for up to 7 days for Pain. Daily Max: 200 mg Yes documented in this encounter Miscellaneous Notes * PAT Note - Thomas Plascencia RN - 12/05/2019 1102 EDT Pt with left foot erythema and swelling. Has open area to left toe as well. MRI completed today perpt to rule out osteomyelitis of foot. 11/27- Labs concerning for: HgA1c 10.3 WBC 14.38 documented in this encounter Plan of Treatment Upcoming Encounters Date Type Department Care Team (Late st Contact Info) Description 02/21/2024 9:45 EDT Office Visit [facility] Adult Primary Care - [address] [phone] Carrington Calderon MD [address] [place] [phone] 02/27/2024 8:30 EDT Telemedicine [facility] Sleep Program - [address] [phone] Rn, Sleep 02/29/2024 10:30 EDT Appointment [facility] Radiology Nuclear Medicine and PET - [address] [phone] 02/29/2024 14:30 EDT Appointment [facility] Radiology Nuclear Medicine and PET - [address] [address] 03/01/2024 8:00 EDT Appointment [facility] Radiology Nuclear Medicine and PET [address] [address] 03/01/2024 9:30 EDT Appointment [facility] Radiology Nuclear Medicine and PET [address] [address] documented as of this encounter Visit Diagnoses Not on filedocumented in this encounter Discontinued Medications Medication Sig Discontinue Reason Start Date End Da te folic acid (FOLVITE) 1 mg tablet Take 4 Tabs by mouth daily. Therapy completed 10/01/2019 12/05/2019 documented as of this encounter
--- OUTSIDE RECORDS SUMMARY | 2023-12-16 00:43 | XMS_ITS | Encounter Summary ---
Author Organization [facility] Address [address] [place] [address] Care Team Providers Care Traffic Control Technician Name Role Phone Unavailable Primary Care Provider Unavailabl e Reason for Visit * Reason Comments Telemedicine Video Visit Foot Pain Ankle Pain Encounter Details Date Type Department Care Team (Latest Contact Info) Description 12/28/2019 10:45 EDT Telemedicine [facility] Adult Primary Care - [address] [phone] Teodoro Alejandro PA-C [address] [facility] [address] [place] [phone] Encounter for sterilization (Primary Dx); Type 2 diabetes mellitus with hyperosmolarity without coma, with long-term current use of insulin ([facility]); Left foot pain Social History Tobacco Use Types Packs/Day [...] Max: 1 Tab 7 Tab 12/28/2019 01/03/2020 documented in this encounter Progress Notes * Teodoro Lovett LPN - 12/28/2019 1045 EDT The concept of ???Telemedicine?? has been [...] LOVETT LPN * Teodoro Alejandro PA-C - 12/28/2019 1045 EDT Internal Medicine Primary Care Follow up 12/28/2019 Patient Profile: Cristy Luo is a 34 y.o. female . Chief Complaint Patient presents with ??? Telemedicine Video Visit ??? Foot Pain ??? Ankle Pain Subjective Left foot pain: Patient continues to have left foot pain. Her pain started in the beginning of November. She denies any trauma to the area. She states that it is still difficult to walk or do any physical activity. She is not sleeping well at night. She has to take care of her kids during the day and has been struggling she has not been sleeping very well. The pain keeps her up at night. She tried tramadol however, this made her feel extremely groggy and did not help with the pain at all. She did have an MRI of her foot which showed multiple findings. There is also some mild cellulitis noted and she did complete a course of Keflex. She has a follow-up appointment on Tuesday with Ortho foot and ankle. OBGYN: Patient followed up with [employer] on 11/02/2019 and a discussion was placed in regards to permanent sterilization including tubal ligation and laparoscopic bilateral salpingectomy. Of note, the patient has been on numerous controls in the past which have not worked well for her. She also hashad numerous miscarriages and previous D&Cs. She was supposed to undergo surgery 2 weeks ago. However, she received a call last minute stating that her diabetes is not well controlled. Therefore rescheduling the surgery until her sugars are better controlled. Unfortunately, she followed up withendocrine who recommended that she had the surgery first before changing her diabetic regimen. Patient was frustrated by all of the changes in little communication. Diabetes: Cristy had followed up with endocrinology. The plan was to start semaglutide after surgery. Patient is currently taking Lantus 30 units at bedtime and NovoLog 1 to 2 units to 5 to 6 units with meals. The plan was to eventually have her off of insulin. Now that the surgery has been postponed, sheneeds to follow back up with endocrinology. Review of Systems: Pertinent positives and negatives noted in HPI. Objective Vitals There were no vitals taken for this visit. Physical Exam Physical Exam Telemedicine visit Recent Labs/Imaging were reviewed in the EMR. Medications Current Medications and allergies were reviewed and updated as appropriate in the EMR Current Outpatient Medications Medication Sig Note Dispense Refill ??? blood glucose meter One [...] the skin 3 times daily with meals. 12/05/2019: 8 units with meals ??? insulin glargine (LANTUS SOLOSTAR) 100 unit/mL [...] was seen today for telemedicine video visit, foot pain and ankle pain. Diagnoses and all orders for this visit: Encounter for sterilization Patient will follow-up with [employer] regarding sterilization. Also discussed with patient about possiblevasectomy for her partner. Type 2 diabetes mellitus with hyperosmolarity without coma, with long-term current use of insulin ([facility]) Continue Lantus 30 mg daily. Continue aspart with meals 1-2units up to 5-6units Needs to follow-up with endocrine regarding plan as the patient did not have any recent surgery. Left foot pain The patient's biggest complaint today was her left foot pain. She is not sleeping well and is getting about 1 to 2 hours asleep at a time. The pain is been keeping her awake. Tramadol was not successful as it did not help her pain and she only experienced side effects with it. I will give her a 7-day course of hydrocodone to just try and help her get some sleep. She will be following up with orthopedics on Tuesday to get their input. - HYDROcodone-acetaminophen (NORCO) 5-325 mg tablet; Take 1 Tab by mouth at bedtime as needed for up to 7 days for Pain. Daily Max: 1 Tab Follow Up in 1 month Teodoro Alejandro PA-C 12/31/2019 10:13 I spent a total of 30 minutes on the phone via zoom with [...] [facility] Adult Primary Care - [address] [phone] Carrington Calderon MD [address] [place] [phone] 02/27/2024 8:30 EDT Telemedicine [facility] Sleep Program - [address] [phone] Rn, Sleep 02/29/2024 10:30 EDT Appointment [facility] Radiology Nuclear Medicine and PET [address] [phone] 02/29/2024 14:30 EDT Appointment [facility] Radiology Nuclear Medicine and PET [address] 148661 03/01/2024 8:00 EDT Appointment [facility] Radiology Nuclear Medicine and PET [address] [phone] 03/01/2024 9:30 EDT Appointment [facility] Radiology Nuclear Medicine and PET [address] [phone] documented as of this encounter Visit Diagnoses Diagnosis Encounter for sterilization- Primary Sterilization Type 2 diabetes mellitus with hyperosmolarity without coma, with long-term current use of insulin ([facility]) Left foot pain Pain in limb documented in this encounter
--- OUTSIDE RECORDS SUMMARY | 2023-12-16 00:43 | XMS_ITS | Encounter Summary ---
Author Organization [facility] Address [address] [place] [address] Care Team Providers Care Ambulatory Care Name Role Phone Unavailable Primary Care Provider Unavailabl e Reason for Visit * Reason Onset Date Comments Results 11/30/2019 Encounter Details Date Type Department Care Team (Late st Contact Info) Description 11/30/2019 Telephone [facility] Adult Primary Care - [address] [phone] Tonja Alejandro PA-C [address] [place] [address] [place] [phone] Results Social History Tobacco Use Types [...] Telephone Encounter - Tonja Alejandro PA-C - 01/03/2020 1417 EDT Called patient and she will get cbc done. * Telephone Encounter - Jesi Lua RN - 11/30/2019 0900 EDT ----- Message from Tonja Alejandro PA-C sent at 11/29/2019 16:10 EDT ----- Called patient and left message for her to call us back. There are abnormal lab findings. Some are stable but will need to be addressed at her next office visit that she already has scheduled with me. She does have an elevated white count and I would like to repeat a CBC with differential in 2 weeks.thanks documented in this encounter Plan of Treatment Upcoming Encounters Date Type Department Care Team (Late st Contact Info) Description 02/21/2024 9:45 EDT Office Visit [facility] Adult Primary Care - [address] [phone] Carrington Calderon MD 1 [facility] Level [address] [place] [phone] 02/27/2024 8:30 EDT Telemedicine [facility] Sleep Program - [address] [place] [address] [place] [address] Rn, Sleep 02/29/2024 10:30 EDT Appointment [facility] Radiology Nuclear Medicine and PET - [address] [address] 02/29/2024 14:30 EDT Appointment [facility] Radiology Nuclear Medicine and PET - [address] [address] 03/01/2024 8:00 EDT Appointment [facility] Radiology Nuclear Medicine and PET - [address] [address] 03/01/2024 9:30 EDT Appointment [facility] Radiology Nuclear Medicine and PET - [address] [address] documented as of this encounter Visit Diagnoses Diagnosis Leukocytosis, unspecified type- Primary documented in this encounter
--- OUTSIDE RECORDS SUMMARY | 2023-12-16 00:43 | XMS_ITS | Encounter Summary ---
Author Organization 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 Name Role Phone Unavailable Primary Care Provider Unavailabl e Reason for Visit * Reason Comments Foot Problem * Consult (Routine/Next Available) - Order Cancelled Specialty Diagnoses / Procedures Referred By Kit goode Referred To Contact Orthopedic Surgery Diagnoses Left foot pain Sore on toe Tonja Alejandro PA-C [address] [place] [address] [facility] Foot [facility] Ankle [address] [place] [address] Referral ID Status Reason Start Date Expiration Date Visits Requested Visits Authorized [id number] Order Cancelled Specialty Services Required 11/28/2019 1 1 Encounter Details Date Type Department Care Team (Late st Contact Info) Description 01/01/2020 8:00 EDT Office Visit [facility] Center Foot & Ankle Program - [facility] [place] [address] Elza Navarro DPM [address] [place] [address] Chronic pain of left ankle (Primary Dx); Ulcerated, foot, left, with fat layer exposed ([facility]); Type 2 diabetes mellitus with diabetic polyneuropathy, with long-term current use of insulin ([facility]) Social History Tobacco Use Types Packs/Day [...] Progress Notes * Elza Navarro, DPM - 01/01/2020 0800 EDT Images from the original note were not included. HPI: Cristy Luo is a very pleasant 34 y.o. female patient who presents with complaint of left great toe ulcer, left foot and ankle pain. She reports that she has had the ulcer for about 2 months. She gets a lot of dry skin and fissuring, and believes that this is how it started. She has been putting antibiotic ointment and a bandage on it. She soaks her feet 3 times a week. Her checks her feet every day. She hears her feet out at night. She was on one course of antibiotics for this back in the beginning of November-. She has not been on any since. She did have an MRI recently to rule out bone involvement here. This did not show any signs of osteomyelitis. She was referred here for further treatment. Ms. Luo also reports pain and swelling in the left foot and ankle. This started sometime around October. She does not recall any trauma or changes in shoe gear or activity around the time it started. It has gotten progressively worse. She has trouble putting weight on the area at times. She has pain whenever she is walking or standing. No pain when she is resting. She also feels like she has a burning sensation that starts on the medial midfoot and extends up to the calf. It is sensitive to touch. It has gotten to the point where she has trouble sleeping due to pain. Her primary care doctor gave her tramadol and hydrocodone. The hydrocodone has been the most helpful. Ms. Luo is diabetic. She follows with endocrinology for this. Her last hemoglobin A1c was 10.3. She has a history of neuropathy-she reports she is numb on the bottoms of both feet. She has a history of dry skin and skin fissures, though this is her first foot ulcer. Ms. Luo has 4 kids at home, and 2 dogs. She is active and on her feet a lot with this. Past medical history, medications, allergies, past surgical, social and family history were reviewed and noted in [facility]. The intake form was reviewed and signed. Patient Active Problem List Diagnosis Date Noted ??? Left foot pain 11/26/2019 Priority: Medium ??? Chronic midline low back pain without sciatica 11/26/2019 Priority: Medium ??? Chronic left ear pain 09/04/2015 Priority: Medium ??? Encounter for sterilization 11/20/2019 ??? Family history of rheumatoid arthritis 09/04/2015 ??? Type 2 diabetes mellitus ([facility]) 09/03/2015 ??? Anxiety and depression 05/12/2010 ??? Migraine with aura and without status migrainosus, not intractable Past Medical History: Diagnosis Date ??? Anxiety ??? Arthritis 12/05/19- Spine- told years ago ??? Diabetes ([facility]) A1c 10.3 on 11/28/2019 ??? History [...] Last attempt to quit: 08/07/2019 Years since quittin.4 ??? Smokeless tobacco: [...] 27 mL 3 ??? lancets One Touch DelKontera or other brand compatible with lancing device [...] General: AO x 3, NAD Lower extremity: Palpable pedal pulses. Skin temperature gradient within normal limits. Capillary filling time less than 3 seconds to all toes. Ulcer plantar left great toe, over the proximal phalanx. Significant hyperkeratotic tissue. On paring down, ulcer noted, as below. Ulcer measures 1 x 1 cm.Probes deep but no probe to bone. No probe to tendon. Granular wound base. No surrounding erythema. No drainage or malodor. No pain on probing. Able to flex and extend the great toe at the MTPJ. Edema to the left ankle and foot. Pain on palpation medial ankle over the posterior tibial tendon coursebehind the medial malleolus and into the midfoot. Pain with resisted plantarflexion and inversion. Unable to do single leg heel raise due to pain. Mild pain on palpation of the navicular. No pain laterally. No pain with range of motion of the ankle joint. No pain on palpation of the great toe around the ulcer. Protective sensation absent via [place] monofilament 0 out of 10. Left plantar great toe ulcer after debridement: ASSESSMENT: 1. Chronic pain of left ankle XR ANKLE LEFT 3 OR MORE VIEWS 2. Ulcerated, foot, left, with fat layer exposed ([facility]) XR FOOT LEFT 3 OR MORE VIEWS 3. Type 2 diabetes mellitus with diabetic polyneuropathy, with long-term current use of insulin ([facility]) XR FOOT LEFT 3 OR MORE VIEWS Other Orders Placed This Visit Procedures ??? XR ANKLE LEFT 3 OR MORE VIEWS ??? XR FOOT LEFT 3 OR MORE VIEWS PLAN: Ms. Luo presents today with 2 pedal complaints. She has an ulcer that has been present for approximately 2 months, plantar left great toe. We obtained some x- rays today. No accessory bone here. No erosive changes. I also reviewed her MRI. No evidence of bone involvement. No abscess. We discussed these findings. She did have significant callus buildup today, which I pared down. We discussed that this can prevent the ulcer from healing and make the ulcer get larger. She will likely need to havethis done regularly. No signs of infection. I advised her to quit the foot soaks, as this can lead to an infection and can also dry out the skin. She is going to continue with daily dressing changes with antibiotic ointment, gauze, wrap. I showed her how to do this. I did encourage her to use moisturizing lotion and pumice stone to the other dry areas on the feet. We also discussed her left ankle pain-over the course of the posterior tibial tendon, consistent with tendinitis, possible partial tear. No history of trauma. She is very tender over the course and is edematous here. Also unable to perform heel raise due to pain and pain with manual muscle testing.We did obtain ankle x-rays today. No underlying bone involvement. No abnormalities in the ankle. NoCharcot. Of note is an accessory navicular. She is mildly tender over this area. We discussed thesefindings. She is going to go into a tall walking boot today. This will also help offload the ulcer,as above. Anticipate that she will be in this for approximately 6 weeks. We discussed rest, ice, elevation. If she continues to have pain despite offloading and rest, would consider an ankle MRI. I am going to see Ms. Luo back in 2 weeks for the ulcer. We will also check in and see how her ankle is doing at that appointment. She knows to call with any questions prior to follow-up and is happy with this plan. All the questions were answered and the patient was encouraged to call the clinic with any questions / concerns. Patient voices understanding and agrees with the plan. Cc: Requesting Provider - Dr. Alejandro PCP - Tonja Alejandro Portions of this document have been prepared with speech recognition software or keyboard marketing database consultant techniques. Minor irregularities or keyboarding misprints may be present documented in this encounter Plan of Treatment Upcoming Encounters Date Type Department Care Team (Late st Contact Info) Description 02/21/2024 9:45 EDT Office Visit [facility] Adult Primary Care - [address] [phone] Carrington Calderon MD [address] [phone] 02/27/2024 8:30 EDT Telemedicine [facility] Sleep Program - [address] [phone] Rn, Sleep 02/29/2024 10:[address] [facility] Radiology Nuclear Medicine and PET [address] [address] 02/29/2024 14:[address] [facility] Radiology Nuclear Medicine and PET [address] [address] 03/01/2024 8:[address] [facility] Radiology Nuclear Medicine and PET [address] [address] 03/01/2024 9:[address] [facility] Radiology Nuclear Medicine and PET [address] [id number] documented as of this encounter Procedures Procedure Name Priority Date/Time Associated Diagnosis Comments XR ANKLE LEFT 3 OR MORE VIEWS Routine 01/01/2020 8:53 EDT Chronic pain of left ankle XR FOOT LEFT 3 OR MORE VIEWS Routine 01/01/2020 8:52 EDT Ulcerated, foot, left, with fat layer exposed ([facility]) Type 2 diabetes mellitus with diabetic polyneuropathy, with long-term current use of insulin ([facility]) documented in this encounter Results * XR [...] documented in this encounter Visit Diagnoses Diagnosis Chronic pain of left ankle- Primary Ulcerated, foot, left, with fat layer exposed ([facility]) Type 2 diabetes mellitus with diabetic polyneuropathy, with long-term current use of insulin ([facility]) documented in this encounter Orders Equipment Count Last Ordered Date First Orde red Date GENERIC ORTHO VENDOR DME 1 01/01/2020 documented in this encounter
--- OUTSIDE RECORDS SUMMARY | 2023-12-16 00:43 | XMS_ITS | Encounter Summary ---
Author Organization [facility] Address [address] [place] [address] Care Team Providers Care Grades 1 Thru 5 Teacher Name Role Phone Unavailable Primary Care Provider Unavailabl e Encounter Details Date Type Department Care Team (Late st Contact Info) Description 11/28/2019 16:00 EDT Phlebotomy Only [facility] Laboratory Services - [address] [address] [facility] Type 2 diabetes mellitus with other specified complication, unspecified whether chcf insulin use ([facility]); Anxiety and depression; Left foot pain Social History Tobacco Use [...] Description 02/21/2024 9:45 EDT Office Visit [facility] Adult Primary Care - [address] [phone] Carrington Calderon MD [address] [place] [phone] 02/27/2024 8:30 EDT Telemedicine [facility] Sleep Program - [address] [phone] Rn, Sleep 02/29/2024 10:30 EDT Appointment [facility] Radiology Nuclear Medicine and PET [address] [phone] 02/29/2024 14:30 EDT Appointment [facility] Radiology Nuclear Medicine and PET [address] [phone] 03/01/2024 8:00 EDT Appointment [facility] Radiology Nuclear Medicine and PET [address] [phone] 03/01/2024 9:30 EDT Appointment [facility] Radiology Nuclear Medicine and PET [address] [phone] documented as of this encounter Procedures Procedure Name Priority Date/Time Associated Diagnosis Comments DIFFERENTIAL, AUTOMATED MANUAL Today 11/28/2019 15:56 EDT Left foot pain THYROID CASCADE Routine 11/28/2019 15:56 EDT Anxiety and depression URINE [id number] RATIO (ACR) Routine 11/28/2019 15:56 EDT Type 2 diabetes mellitus with other specified complication, unspecified whether chorus master insulin use ([facility]) COMPLETE BLOOD COUNT AND DIFFERENTIAL Routine 11/28/2019 15:56 EDT Left foot pain C REACTIVE PROTEIN Routine 11/28/2019 15 :56 EDT Left foot pain HEMOGLOBIN A1C Routine 11/28/2019 15:56 EDT Type 2 diabetes mellitus with other specified complication, unspecified whether chcf insulin use ([facility]) LIPID PROFILE (INCLUDES CHOLESTEROL, TRIGLYCERIDES, HDL, LDL) Routine 11/28/2019 15:56 EDT Type 2 diabetes mellitus with other specified complication, unspecified whether chorus master insulin use ([facility]) COMPREHENSIVE METABOLIC PANEL (CMP) Routine 11/28/2019 15:56 EDT Type 2 diabetes mellitus with other specified complication, unspecified whether chcf insulin use ([facility]) documented in this encounter Results * (ABNORMAL) DIFFERENTIAL, AUTOMATED MANUAL (11/28/2019 15:56 EDT) % Neutrophils 45.7 % 11/28/2019 17:50 [facility] % Banded Neutrophils 0.9 % 11/28/2019 17:50 [facility] % Lymphocytes 37.1 % 11/28/2019 17:50 [facility] % Atypical Lymphocytes 7.7 % 11/28/2019 17:50 [facility] % Monocytes 4.3 % 11/28/2019 17:50 [facility] % Eosinophils 2.6 % 11/28/2019 17:50 [facility] % Basophils 1.7 % 11/28/2019 17:50 [facility] Absolute Neutrophils 6.57 2.20 - 8.85 K/cmm 11/28/2019 17:50 T [facility] Absolute Bands 0.13 K/cmm 11/28/2019 17:50 T [facility] Absolute Lymphocytes 5.33(H) 1.09 - 3.30 K/cmm 11/28/2019 17:50 T [facility] Absolute Atypical Lymphocytes 1.11 K/cmm 11/28/2019 17:50 T [facility] Absolute Monocytes 0.62 0.10 - 0.80 K/cmm 11/28/2019 17:50 T [facility] Absolute Eosinophils 0.37 0.03 - 0.61 K/cmm 11/28/2019 17:50 T [facility] ABS Basophils 0.24(H) 0.01 - 0.11 K/cmm 11/28/2019 17:50 EDT [facility] Blood VENOUS BLOOD / Unknown Venipuncture / Unknown 11/28/2019 15:56 EDT 11/28/2019 15:56 EDT Tonja Alejandro PA-C HEMATOLOGY & PF4 ORDERABLES [facility] [address] [place] [address] * (ABNORMAL) C REACTIVE PROTEIN (11/28/2019 15:56 EDT) C-Reactive Protein 10.6(H) <10.0 mg/L 11/28/2019 17:12 EDT [facility] Blood VENOUS BLOOD / Unknown Venipuncture / Unknown 11/28/2019 15:56 EDT 11/28/2019 15:56 EDT Tonja Alejandro PA-C CHEMISTRY & BLOOD GAS ORDERABLES [facility] [address] [place] [address] * (ABNORMAL) COMPREHENSIVE METABOLIC PANEL (CMP) (11/28/2019 15:56 EDT) Sodium 134(L) 136 - 145 mEq/L 11/28/2019 17:12 [facility] Potassium 4.2 3.5 - 5.0 mEq/L 11/28/2019 17:12 [facility] Chloride 100 96 - 110 mEq/L 11/28/2019 17:12 [facility] CO2 Total 28 22 - 32 mEq/L 11/28/2019 17:12 [facility] Glucose 301(H) 70 - 100 mg/dL 11/28/2019 17:12 [facility] BUN 14 10 - 26 mg/dL 11/28/2019 17:12 [facility] Creatinine 0.57 0.52 - 1.04 mg/dL 11/28/2019 17:12 [facility] eGFR 121 >60 mL/min/1.7 3m2 11/28/2019 17:12 [facility] Comment:eGFR calculated gil curtis CKD-EPI equation for non- Americans. Multiply eGFR by 1.16 for patients. Total Protein 7.0 6.3 - 8.2 g/dL 11/28/2019 17:12 [facility] Albumin 3.9 3.4 - 4.9 g/dL 11/28/2019 17:12 [facility] Alkaline Phosphatase 100 38 - 126 U/L 11/28/2019 17:12 [facility] AST 17 15 - 46 U/L 11/28/2019 17:12 [facility] ALT 14 <35 U/L 11/28/2019 17:12 [facility] Bilirubin, Total <0.5 <1.4 mg/dL 11/28/19 20 17:12 [facility] Calcium 9.8 8.5 - 10.5 mg/dL 11/28/2019 17:12 [facility] Calculated Calcium 9.9 8.5 - 10.5 mg/dL 11/28/2019 17:12 [facility] Blood VENOUS BLOOD / Unknown Venipuncture / Unknown 11/28/2019 15:56 EDT 11/28/2019 15:56 EDT Tonja Alejandro PA-C CHEMISTRY & BLOOD GAS ORDERABLES [facility] [address] [place] [address] * (ABNORMAL) COMPLETE BLOOD COUNT AND DIFFERENTIAL (11/28/2019 15:56 EDT) WBC 14.38(H) 4.00 - 12.40 K/cmm 11/28/2019 17:04 EDT [facility] RBC 4.69 3.86 - 5.04 M/cmm 11/28/2019 17:04 [facility] Hemoglobin 14.3 11.6 - 15.2 gm/dL 11/28/2019 17:04 T [facility] HCT 40.8 34.9 - 44.4 % 11/28/2019 17:04 [facility] MCV 87 81 - 98 fl 11/28/2019 17:04 [facility] MCH 30.5 26.7 - 33.3 pg 11/28/2019 17:04 [facility] MCHC 35.0 32.1 - 35.9 gm/dL 11/28/2019 17:04 [facility] RDW-CV 12.0 <14.7 % 11/28/2019 17:04 [facility] RDW-SD 38.4 <50.4 fl 11/28/2019 17:04 [facility] PLT 414(H) 141 - 377 K/cmm 11/28/2019 17:04 T [facility] MPV 10.1 9.5 - 12.7 fl 11/28/2019 17:04 [facility] Type of Differential: Manual 11/28/2019 17:04 [facility] Blood VENOUS BLOOD / Unknown Venipuncture / Unknown 11/28/2019 15:56 EDT 11/28/2019 15:56 EDT Tonja Alejandro PA-C PACKAGES & D NA PROBE ORDERABLES Performing Organization Address [facility]/ZIP Co de Phone Number [facility] [address] [place] [address] * (ABNORMAL) HEMOGLOBIN A1C (11/28/2019 15:56 EDT) Hemoglobin A1c 10.3(H) <5.7 % 11/29/2019 9:15 EDT [facility] Comment: Glycemic Status References: Normal: [...] Avg Glucose 249 mg/dL 0 9:15 EDT [facility] Comment: The eAG represents the A1c result expressed as average glucose in mg/dL. Blood VENOUS BLOOD / Unknown Venipuncture / Unknown 11/28/2019 15:56 EDT 11/28/2019 15:56 EDT Tonja Alejandro PA-C CHEMISTRY & BLOOD GAS ORDERABLES [facility] [address] [place] [address] * THYROID CASCADE (11/28/2019 15:56 EDT) TSH 0.64 0.47 - 4.68 uIU/mL 11/28/2019 17:44 EDT [facility] Blood VENOUS BLOOD / Unknown Venipuncture / Unknown 11/28/2019 15:56 EDT 11/28/2019 15:56 EDT Narrative [facility] - 11/28/2019 17:44 EDT NOTE: TSH [place] is not recommended for patients in which pituitary or hypothalamic disorders are suspected. The results of this assay can be falsely lowered due to the consumption of Biotin. Tonja Alejandro PA-C CHEMISTRY & BLOOD GAS ORDERABLES [facility] [address] [place] [address] * LIPID PROFILE (INCLUDES CHOLESTEROL, TRIGLYCERIDES, HDL, LDL) (11/28/2019 15:56 EDT) [facility] Signature Cholesterol 179 See Note mg/dL 11/28/2019 17:12 [facility] Comment: Acceptable: ?<200 mg/dL Borderline High: 200-239 mg/dL High: ?> or = 240 mg/dL HDL 38 See Note mg/dL 11/28/2019 17:12 [facility] Comment: Low: ? <40 mg/dL Normal: ??40-60 mg/dL High: ?>60 mg/dL LDL, Calculated 61 See Note mg/dL 11/28/2019 17:12 [facility] Comment: Optimal: ? <100 mg/dL Near Optimal: ?100-129 mg/dL Borderline High: 130-159 mg/dL High: ?160-189 mg/dL Very High: ? > or = 190 mg/dL Triglyceride 398 See Note mg/dL 11/28/2019 17:12 [facility] Comment: Normal: ? <150 mg/dL Borderline High: ??150 - 199 mg/dL High: ? 200 - 499 mg/dL Very High: ?> or = 500 mg/dL Chol/HDL Ratio 4.7 See Note 11/28/2019 17:12 [facility] Comment: No reference range has been established for CHOL/HDL ratio. Non HDL Cholesterol 141 See Note mg/dL 11/28/2019 17:12 EDT [facility] Comment: Desirable: ?<130 mg/dL Borderline High: ??130-159 mg/dL High: ? 160-189 mg/dL Very High: ?> or = 190 mg/dL Blood VENOUS BLOOD / Unknown Venipuncture / Unknown 11/28/2019 15:56 EDT 11/28/2019 15:56 EDT Tonja Alejandro PA-C CHEMISTRY & BLOOD GAS ORDERABLES Performing Organization Address [facility] Co de Phone Number [facility] [address] [place] [address] * (ABNORMAL) ALBUMIN, URINE (11/28/2019 15:56 EDT) Albumin, Urine 11.3 See Note mg/dL 2019 16:47 EDT [facility] Comment: NOTE: Reference range not established Creatinine, Urine 143.1 See Note mg/dL 11/28/2019 16:47 EDT [facility] Comment: NOTE: Reference range not established Lab Urine Albumin to Creatinine Ratio 79(H) <30 ug/mg Creatinine 11/28/2019 16:47 EDT [facility] Comment: Urine Albumin/Creatinine Ratio: Normal: <30 ug/mg Creatinine Moderately increased albuminuria: 30-300 ug/mg Creatinine [place] increased albuminuria: >300 ug/mg Creatinine Urine URINE SPECIMEN OBTAINED BY CLEAN CATCH PROCEDURE / Unknown Urine Collect / Unknown 11/28/2019 15:56 EDT 11/28/2019 15:56 EDT Tonja Alejandro PA-C CHEMISTRY & BLOOD GAS ORDERABLES Performing Organization Address [facility] Co de Phone Number [facility] [address] [place] [address] documented in this encounter Visit Diagnoses Diagnosis Type 2 diabetes mellitus with other specified complication, unspecified whether chcf insulin use ([facility]) Anxiety and depression Dysthymic disorder Left foot pain Pain in limb documented in this encounter
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
--- OUTSIDE RECORDS SUMMARY | 2023-12-16 00:43 | XMS_ITS | Encounter Summary ---
Author Organization [facility] Address [address] [place] [address] Care Team Providers Care Liquor Runner Name Role Phone None, Provider Primary Care Provider Unavailabl e Reason for Visit * Reason Comments Social Work Encounter Details Date Type Department Care Team (Late st Contact Info) Description 11/05/2019 Community Health Team [facility] Women's Services - [address] [address] Eryn Diaz Social History Tobacco Use Types [...] encounter Progress Notes * Eryn Diaz - 11/05/2019 0954 EDT SW providing short-term couns related to pt's recent miscarriage which was her 7th - spoke with pt via zoom - met for the first time. Pt rep her mo, sis, Fermin, and 4 children have cont to be very supportive of her and her grieving process. Pt lives in [place] with Fermin, her 8 yo step francois (his bio) Emiliana, and their 3 foster children: 4 yo francois Sparkle, 12 yo francois Cassie, and 14 yo son Miky. Couple planning to adopt Sparkle and Miky who are sibs; unsure plan for Cassie - would like to adopt if possible. Pt working with DCF DOTTIE Bonilla with whom she has a good relationship. Pt disc being uncomfortable accepting financial support from DCF and SW enc pt to accept anything offered and ask for what omi cage needs! Pt rec'd COVID EBT card which has helped with groceries and pt glad Fermin's unemployment pay finally came through. Pt disc Emiliana's bio mo Mikey who hasn't been a great Mom to her - has had over a dozen boyfriendsin the 5 years I've been with Fermin. No custody arrangement in place - Fermin worried paternity may not be a match. DOTTIE rec paternity testing and pursuing agreement via court. Actively listened to pt's expression and provided validation, support, and safe space. Focused on rapport-building and redirected to grieving process and self-care. Re. Miscarriage / next steps: - Pt rep 11/01 appt re tubal procedure consult went well - Drs supportive of couple's decision - nowwaiting 30 days as req by ins co - doesn't yet have surgery date - Pt grateful for dates provided by MARCELO Wolfe (of 7 miscarriages) - Planning ceremonial events to close this chapter of her life - will frame u/s pics and dates, then release balloons, and plans to get 8 dragonfly tattoos for birthday - Checked out [facility] thx practice that SW had rec - declines being connected with a thx ATT, but open to it if needed - rep very self-aware and knows resources - Pt participating in a loss support group on facebook that has been helpful - Pt req short term couns with this SW - planned for an appt before her tubal procedure and 1 after SW mailed pt a gas card and contact info. Next SW appt 11/25 via zoom - emailed pt link. [facility] Total Time: 1.5 hours total 1 hour, 5 min via zoom with pt 5 min via email with pt 20 min charting Referral: [facility] Follow up: Date: Tuesday, November 26, 2019 Time: 10 AM With: Eryn Diaz Metal Neutralizer Location: zoom Status: Active documented in this encounter Plan of Treatment Upcoming Encounters Date Type Department Care Team (Late st Contact Info) Description 02/21/2024 9:45 EDT Office Visit [facility] Adult Primary Care - [address] [phone] Carrington Calderon MD [address] [place] [phone] 02/27/2024 8:30 EDT Telemedicine [facility] Sleep Program - [address] [address] Rn, Sleep 02/29/2024 10:30 EDT Appointment [facility] Radiology Nuclear Medicine and PET - [address] [phone] 02/29/2024 14:30 EDT Appointment [facility] Radiology Nuclear Medicine and PET [address] [phone] 03/01/2024 8:00 EDT Appointment [facility] Radiology Nuclear Medicine and PET [address] [phone] 03/01/2024 9:30 EDT Appointment [facility] Radiology Nuclear Medicine and PET - [address] [address] documented as of this encounter Visit Diagnoses Not on filedocumented in this encounter Care Teams Liquor Runner Relationship Specialty Start Date End Date None, Provider PCP - General 06/18/19 11/25/19 documented as of this encounter
--- OUTSIDE RECORDS SUMMARY | 2023-12-16 00:43 | XMS_ITS | Encounter Summary ---
Author Organization [facility] Address [address] [place] [address] Care Team Providers Care Set Up Machinist Name Role Phone Unavailable Primary Care Provider Unavailabl e Encounter Details Date Type Department Care Team (Latest Contact Info) Description 01/01/2020 8:37 EDT - 01/01/2020 23:59 EDT Hospital Encounter [facility] [address] [place], [place] [phone] Discharge Disposition: Home or Self Care Social [...] Visit [facility] Adult Primary Care [address] [address] Carrington Calderon MD [address] [place] [address] [address] [place] [phone] 02/27/2024 8:30 EDT Telemedicine [facility] Sleep Program - [address] [address] Rn, Sleep 02/29/2024 10:30 ED[facility] - [address] [address] 02/29/2024 14:[address] [facility] Radiology Nuclear Medicine and PET [address] [address] 03/01/2024 8:[address] [facility] Radiology Nuclear Medicine and PET [address] [phone] 03/01/2024 9:[address] [facility] Radiology Nuclear Medicine and PET [address] [address] documented as of this encounter Procedures Procedure Name Priority Date/Time Associated Diagnosis Comments XR ANKLE LEFT 3 OR MORE VIEWS Routine 01/01/2020 8:53 EDT Chronic pain of left ankle documented in this encounter Results * XR [...]
--- OUTSIDE RECORDS SUMMARY | 2023-12-16 00:43 | XMS_ITS | Encounter Summary ---
Author Organization [facility] Address [address] [place] [address] Care Team Providers Care Master Esthetician Name Role Phone Unavailable Primary Care Provider Unavailabl e Reason for Visit * Reason Onset Date Comments Update 12/06/2019 Encounter Details Date Type Department Care Team (Late st Contact Info) Description 12/06/2019 Telephone [facility] Gynecologic Oncology - [address] [phone] Charu Flynn MD [address] [facility], [address] [place] [phone] Update Social History Tobacco Use Types Packs/Day Years [...] encounter Miscellaneous Notes * Telephone Encounter - Taj Plascencia - 12/06/2019 1413 EDT Surgery that was scheduled for 12/13 has been cancelled due to abnormal lab results needing attention. Cancellation confirmed with OR Scheduling. Place call to patient regarding cancellation of other appointments scheduled regarding procedure that those have also been cancelled. Asked her to please reach out to us in the clinic to get scheduled for a 3 month follow up with providers to address things. documented in this encounter Plan of Treatment Upcoming Encounters Date Type Department Care Team (Late st Contact Info) Description 02/21/2024 9:45 EDT Office Visit [facility] Adult Primary Care - [address] [phone] Carrington Calderon MD 1 [facility] 1 [place] [phone] 02/27/2024 8:30 EDT Telemedicine [facility] Sleep Program - [address] [phone] Rn, Sleep 02/29/2024 10:30 EDT Appointment [facility] Radiology Nuclear Medicine and PET - [address] [phone] 02/29/2024 14:30 EDT Appointment [facility] Radiology Nuclear Medicine and PET - [address] [address] 03/01/2024 8:00 EDT Appointment [facility] Radiology Nuclear Medicine and PET - [address] [address] 03/01/2024 9:30 EDT Appointment [facility] Radiology Nuclear Medicine and PET - [address] [phone] documented as of this encounter Visit Diagnoses Not on filedocumented in this encounter
--- OUTSIDE RECORDS SUMMARY | 2023-12-16 00:43 | XMS_ITS | Encounter Summary ---
Author Organization [facility] Address [address] [place] [address] Care Team Providers Care Nurse Prn Name Role Phone None, Provider Primary Care Provider Unavailabl e Encounter Details Date Type Department Care Team (Late st Contact Info) Description 11/20/2019 Prep for Procedure [facility] [address] [place], [place] [phone] Pamela Sifuentes MD [address] [place] [phone] Social History Tobacco Use Types Packs/Day Years [...] [facility] Adult [facility] - [address] [address] Carrington Calderon MD [address] [phone] 02/27/2024 8:30 EDT Telemedicine [facility] Sleep Program - [address] [phone] Rn, Sleep 02/29/2024 10:30 EDT Appointment [facility] Radiology Nuclear Medicine and PET - [address] [phone] 02/29/2024 14:30 EDT Appointment [facility] Radiology Nuclear Medicine and PET [address] [phone] 03/01/2024 8:00 EDT Appointment [facility] Radiology Nuclear Medicine and PET [address] 610421 03/01/2024 9:30 EDT Appointment [facility] Radiology Nuclear Medicine and PET - [address] [phone] documented as of this encounter Visit Diagnoses Not on filedocumented in this encounter Care Teams Nurse Prn Relationship Specialty Start Date End Date None, Provider PCP - General 06/18/19 11/25/19 documented as of this encounter
--- OUTSIDE RECORDS SUMMARY | 2023-12-16 00:44 | XMS_ITS | Encounter Summary ---
Author Organization [facility] Address [address] [place] [address] Care Team Providers Care Bus Greaser Name Role Phone None, Provider Primary Care Provider Unavailabl e Reason for Visit * Reason Onset Date Comments Follow-up 10/15/2019 Encounter Details Date Type Department Care Team (Late st Contact Info) Description 10/15/2019 Telephone [facility] Women's Services [facility] [address] [place] [address] Susana Tomlinson, RN Follow-up Social History Tobacco [...] Miscellaneous Notes * Telephone Encounter - Susana Tomlinson, RN - 10/15/2019 0901 EDT Spoke with Cristy: her cramping is uncomfortable, but tolerable, taking tylenol (cannot take Ibuprofen), reached max tylenol does yesterday---> encouraged resting, warm packs to belly & timing meds when will be most active. Denies VB--> advised may have some bleeding, but typically is less after procedure. When asked how she is emotionally, she said her took kids so she could have time to rest & recover, said she is okay, with seven miscarriages, I want a tubal, can not go thru this again. She [facility] at [phone] to set up a Control talk to discuss tubal. She spoke with DOTTIE on Tuesday & will get a call from her tomorrow, discussed DOTTIE may recommend appt. with Denita Brantley CNM who specializes in Loss. Encouraged her to call us if she has any concerns or questions. documented in this encounter Plan of Treatment Upcoming Encounters Date Type Department Care Team (Late st Contact Info) Description 02/21/2024 9:45 EDT Office Visit [facility] Adult Primary Care - [address] [phone] Carrington Calderon MD 1 [facility] 1 [place] [phone] 02/27/2024 8:30 EDT Telemedicine [facility] Sleep Program - [address] [phone] Rn, Sleep 02/29/2024 10:30 EDT Appointment [facility] Radiology Nuclear Medicine and PET - [address] [address] 02/29/2024 14:30 EDT Appointment [facility] Radiology Nuclear Medicine and PET [address] [address] 03/01/2024 8:00 EDT Appointment [facility] Radiology Nuclear Medicine and PET [address] [address] 03/01/2024 9:30 EDT Appointment [facility] Radiology Nuclear Medicine and PET [address] [address] documented as of this encounter Visit Diagnoses Not on filedocumented in this encounter Care Teams Bus Greaser Relationship Specialty Start Date End Date None, Provider PCP - General 06/18/19 11/25/19 documented as of this encounter
--- OUTSIDE RECORDS SUMMARY | 2023-12-16 00:44 | XMS_ITS | Encounter Summary ---
Author Organization [facility] Address [address] [place] [address] Care Team Providers Care Trouble Operator Name Role Phone None, Provider Primary Care Provider Unavailabl e Encounter Details Date Type Department Care Team (Latest Contact Info) Description 08/31/2019 Travel Social History Tobacco Use Types Packs/Day Years Used Date Smoking Tobacco: Every Day Cigarettes 0.3 13.1 Started: 11/10/2010 Smokeless Tobacco: Never Alcohol Use Standard Drinks/Week Comments Yes 0 [...] have Coronavirus / COVID-19? No / Unsure 08/31/2019 8:40 EDT documented as of this encounter Functional [...] 02/21/2024 9:45 EDT Office Visit [facility] Adult Primary Care - [address] [phone] Carrington Calderon MD [address] [phone] 02/27/2024 8:30 EDT Telemedicine [facility] Sleep Program - [address] [address] Rn, Sleep 02/29/2024 10:30 ED[facility] [address] [phone] 02/29/2024 14:30 EDT Appointment [facility] Radiology Nuclear Medicine and PET [address] [phone] 03/01/2024 8:00 EDT Appointment [facility] Radiology Nuclear Medicine and PET [address] [phone] 03/01/2024 9:30 EDT Appointment [facility] Radiology Nuclear Medicine and PET [address] [phone] documented as of this encounter Visit Diagnoses Not on filedocumented in this encounter Care Teams Trouble Operator Relationship Specialty Start Date End Date None, Provider PCP - General 06/18/19 11/25/19 documented as of this encounter
--- OUTSIDE RECORDS SUMMARY | 2023-12-16 00:44 | XMS_ITS | Encounter Summary ---
Author Organization [facility] Address [address] [place] [address] Care Team Providers Care Booth Supervisor Name Role Phone None, Provider Primary Care Provider Unavailabl e Reason for Visit * Reason Onset Date Comments Vaginal Bleeding 10/11/2019 Encounter Details Date Type Department Care Team (Late st Contact Info) Description 10/11/2019 Telephone [facility] OBGYN [address] [place], [place] [phone] Mayra Lund MD [address] [place] [phone] Vaginal Bleeding Social History Tobacco Use Types Packs/Day Years [...] have Coronavirus / COVID-19? No / Unsure 09/17/2019 9:08 EDT documented as of this encounter Functional [...] encounter Miscellaneous Notes * Telephone Encounter - Mayra Lund MD - 10/11/20192004 EDT 34 yo at 9.3 wk GA calls with spotting since last night, bright red on TP and pantyliner. Some mild cramping. Denies provocation. Has history of 6 prior miscarriages and is really anxious. Last scan 09/16 consistent with IUP at 6 wk with HR 105. Advised to present to ED for eval of spotting,discussed risk of possible miscarriage. ED Triage updated with information, reviewed plan for CBC, T&S, HCG and TVUS. Patient is on her way. Of note, pt is Rh neg and received Rhogam 1 week ago for spotting. Mayra Lund MD PhD M Fellow, PGY5 Pager #[phone] documented in this encounter Plan of Treatment Upcoming Encounters Date Type Department Care Team (Late st Contact Info) Description 02/21/2024 9:45 EDT Office Visit [facility] Adult Primary Care - [address] [phone] Carrington Calderon MD [address] [phone] 02/27/2024 8:30 EDT Telemedicine [facility] Sleep Program - [address] [phone] Rn, Sleep 02/29/2024 10:30 EDT Appointment [facility] Radiology Nuclear Medicine and PET - [address] [phone] 02/29/2024 14:30 EDT Appointment [facility] Radiology Nuclear Medicine and PET - [address] [address] 03/01/2024 8:00 EDT Appointment [facility] Radiology Nuclear Medicine and PET [address] [address] 03/01/2024 9:30 EDT Appointment [facility] Radiology Nuclear Medicine and PET - [address] [address] documented as of this encounter Visit Diagnoses Not on filedocumented in this encounter Care Teams Booth Supervisor Relationship Specialty Start Date End Date None, Provider PCP - General 06/18/19 11/25/19 documented as of this encounter
--- OUTSIDE RECORDS SUMMARY | 2023-12-16 00:44 | XMS_ITS | Encounter Summary ---
Author Organization [facility] Address [address] [place] [address] Care Team Providers Care Car Head Liner Installer Name Role Phone None, Provider Primary Care Provider Unavailabl e Reason for Visit * Reason Onset Date Comments Other 10/12/2019 Follow up call , seen in ED with vaginal bleeding, miscarriage. Encounter Details Date Type Department Care Team (Late st Contact Info) Description 10/12/[address] [facility] Women's Services - [address] [address] Jordyn Wolfe, MARCELO Other (Follow up call , seen in ED with vaginal bleeding, miscarriage.) Social History Tobacco Use Types Packs/Day Years [...] Telephone Encounter - Jordyn Wolfe RN - 10/12/[address] David Martínez. I spoke to Dr. Martínez. Reviewed that patient would like to have office D&C today if possible. Dr. Martínez will review patient's chart and contact patient if staffing is available to do this today. Per communication with nurse branch operations manager Mary, will be able to staff procedure today. Appointment set up for [address] Martínez will call patient to confirm plan. * Telephone Encounter - Jordyn Wolfe RN - 10/12/2019 1027 EDT Call to child protective services social worker Niru Diaz. Niru will call patient as follow up guidance counselor to miscarriage. * Telephone Encounter - Jordyn Wolfe RN - 10/12/2019 0917 EDT Call to patient. I spoke to patient. Call patient as follow-up call from her visit in the emergency room for miscarriage yesterday. Patient states that she decided that she would like to come in for a D&C in the clinic. States that she would like this done as soon as possible. States is able to come in today. Will also be available early next week. Patient denies pain. States bleeding is like a regular period. Denies heavy vaginal bleeding as identified for her saturating through a maxi pad for 1 hour for more than 2 hours. Patient states that she feels like she is supported by her partner and this loss. States however that she currently does not have a counselor, has had one in the past. States also do not have a PCP . Patient states that she is trying to process everything . Patient given information regarding support systems available to her. Informed her that we have social workers that could reach out to her and also have provider Jessenia Brantley who is a loss /mood specialist. Patient states she is interested in the supports and she would like me to move forward to see about setting up contact. Informed patient that I will let her know next steps, I will reach out to scheduling team/provider for procedure. Patient states she does not have a preference of providers. States she is fine to have a male provider. Okay per patient to leave detailed message on her voicemail. Okay per patient to reach out to her contact emergency who is her spouse who has been supportive for her at all of this. I did cancel labs that were ordered by Dr. Lund. documented in this encounter Plan of Treatment Upcoming Encounters Date Type Department Care Team (Late st Contact Info) Description 02/21/2024 9:[address] [facility] Adult Primary Care - [address] [phone] Carrington Calderon MD [address] [phone] 02/27/2024 8:[address] [facility] Sleep Program - [address] [address] Rn, Sleep 02/29/2024 10:[address] [facility] Radiology Nuclear Medicine and PET - [address] [phone] 02/29/2024 14:30 EDT Appointment [facility] Radiology Nuclear Medicine and PET - [address] [id number] 03/01/2024 8:[address] [facility] Radiology Nuclear Medicine and PET - [address] [phone] 03/01/2024 9:[address] [facility] Radiology Nuclear Medicine and PET [address] [phone] documented as of this encounter Visit Diagnoses Not on filedocumented in this encounter Care Teams Car Head Liner Installer Relationship Specialty Start Date End Date None, Provider PCP - General 06/18/19 11/25/19 documented as of this encounter
--- OUTSIDE RECORDS SUMMARY | 2023-12-16 00:44 | XMS_ITS | Encounter Summary ---
Author Organization [facility] Address [address] [place] [address] Care Team Providers Care Management Recruiter Name Role Phone None, Provider Primary Care Provider Unavailabl e Encounter Details Date Type Department Care Team (Latest Contact Info) Description 09/02/2019 Travel Social History Tobacco Use Types Packs/Day [...] have Coronavirus / COVID-19? No / Unsure 09/02/2019 9:34 EDT documented as of this encounter Functional [...] System [facility] Adult Primary Care - [address] [phone] Carrington Calderon MD [address] [phone] 02/27/2024 8:30 EDT Telemedicine [facility] Sleep Program - [address] [address] Rn, Sleep 02/29/2024 10:30 [facility] [address] [phone] 02/29/2024 14:30 EDT Appointment [facility] Radiology Nuclear Medicine and PET [address] [phone] 03/01/2024 8:00 EDT Appointment [facility] Radiology Nuclear Medicine and PET [address] [phone] 03/01/2024 9:30 EDT Appointment [facility] Radiology Nuclear Medicine and PET [address] [phone] documented as of this encounter Visit Diagnoses Not on filedocumented in this encounter Care Teams Management Recruiter Relationship Specialty Start Date End Date None, Provider PCP - General 06/18/19 11/25/19 documented as of this encounter
--- OUTSIDE RECORDS SUMMARY | 2023-12-16 00:44 | XMS_ITS | Encounter Summary ---
Author Organization [facility] Address [address] [place] [address] Care Team Providers Care Business Communications Instructor Name Role Phone None, Provider Primary Care Provider Unavailabl e Encounter Details Date Type Department Care Team (Late st Contact Info) Description 09/02/2019 9:45 EDT Phlebotomy Only [facility] 2 Phlebotomy [address] [place] [address] Gravedigger, Acc Phlebotomy affected by previous ectopic (Primary Dx) Social History Tobacco Use Types [...] have Coronavirus / COVID-19? No / Unsure 09/05/2019 10:25 EDT documented as of this encounter Functional [...] [facility] - [address] [address] Carrington Calderon MD [address] [place] [phone] 02/27/2024 8:30 EDT Telemedicine [facility] Sleep Program - [address] [phone] Rn, Sleep 02/29/2024 10:30 EDT Appointment [facility] Radiology Nuclear Medicine and PET [address] [id number] 02/29/2024 14:30 EDT Appointment [facility] Radiology Nuclear Medicine and PET [address] [id number] 03/01/2024 8:00 EDT Appointment [facility] Radiology Nuclear Medicine and PET [address] [id number] 03/01/2024 9:30 EDT Appointment [facility] Radiology Nuclear Medicine and PET [address] [id number] documented as of this encounter Procedures Procedure Name Priority Date/Time Associated Diagnosis Comments QUANT BETA HCG, Routine 09/02/2019 9:42 EDT affected by previous ectopic documented in this encounter Results * (ABNORMAL) QUANT BETA HCG, (09/02/2019 9:42 EDT) Beta HCG Quant, 707(H) <5 mIU/ml 09/02/2019 10:30 EDT [facility] Comment: NOTE: : Negative: Less than 5mIU/mL Indeterminant: Between 5 and 25 mIU/mL, recommend repeat testing in 48 hours Positive: Greater than 25 mIU/mL The results of this assay can be falsely lowered due to the consumption of Biotin. Blood VENOUS BLOOD / Unknown Venipuncture / Unknown 09/02/2019 9:42 EDT 09/02/2019 9:45 EDT Charu Flynn MD CHEMISTRY & BLOO D GAS ORDERABLES [facility] [address] [place] [address] documented in this encounter Visit Diagnoses Diagnosis affected by previous ectopic - Primary documented in this encounter Care Teams Business Communications Instructor Relationship Specialty Start Date End Date None, Provider PCP - General 06/18/19 11/25/19 documented as of this encounter
--- OUTSIDE RECORDS SUMMARY | 2023-12-16 00:44 | XMS_ITS | Encounter Summary ---
Author Organization [facility] Address [address] [place] [address] Care Team Providers Care Pull Worker Name Role Phone None, Provider Primary Care Provider Unavailabl e Reason for Visit * Reason Onset Date Comments 08/30/2019 Encounter Details Date Type Department Care Team (Late st Contact Info) Description 08/30/2019 Telephone [facility] Women's Services - [address] [address] Nilda Parisi RN Social History Tobacco Use Types Packs/Day [...] encounter Miscellaneous Notes * Telephone Encounter - Nilda Parisi RN - 08/30/2019 1150 EDT VM from patient to state that she has a + UPT. Reports that her most recent was considered high risk Requests call back to establish care. documented in this encounter Plan of Treatment Upcoming Encounters Date Type Department Care Team (Late st Contact Info) Description 02/21/2024 9:45 EDT Office Visit [facility] Adult Primary Care - [address] [phone] Carrington Calderon MD [address] [place] [phone] 02/27/2024 8:30 EDT Telemedicine [facility] Sleep Program - [address] [phone] Rn, Sleep 02/29/2024 10:30 EDT Appointment [facility] Radiology Nuclear Medicine and PET [address] [id number] 02/29/2024 14:30 EDT Appointment [facility] Radiology Nuclear Medicine and PET [address] [phone] 03/01/2024 8:00 EDT Appointment [facility] Radiology Nuclear Medicine and PET [address] [phone] 03/01/2024 9:30 EDT Appointment [facility] Radiology Nuclear Medicine and PET [address] [phone] documented as of this encounter Visit Diagnoses Not on filedocumented in this encounter Care Teams Pull Worker Relationship Specialty Start Date End Date None, Provider PCP - General 06/18/19 11/25/19 documented as of this encounter
--- OUTSIDE RECORDS SUMMARY | 2023-12-16 00:44 | XMS_ITS | Encounter Summary ---
Author Organization [facility] Address [address] [place] [address] Care Team Providers Care Card Mounter Name Role Phone None, Provider Primary Care Provider Unavailabl e Reason for Visit * Reason Onset Date Comments Results 08/31/2019 Encounter Details Date Type Department Care Team (Late st Contact Info) Description 08/31/2019 Telephone [facility] Women's Services - [address] [address] Susana Tomlinson, RN Results Social History Tobacco Use Types Packs/Day [...] Telephone Encounter - Susana Tomlinson RN - 08/31/2019 8157 EDT Spoke with Cristy: advised HCG from this morning = 316, plan per Dr. Bran is repeat HCG in 48hrs. Tuesday morning (09/01) & residents will call with results & next steps. One HCG value not so helpful, will know more with repeat HCG, plan moving forward may vary but likely to include an early u/s to determine if is in uterus. When asked how she feels she said she feels very different than last summer, more morning sickness& breast tenderness. Denies VB---> advised if has any VB need to call right away so can getRhogam. Ectopic precautions: If you have vaginal bleeding that soaks 1 maxipad (or superplus tampon)/hr >2hrs in a row, pass blood clots >= size of rema, experience dizziness, lightheadedness, SOB, severe abdominal pain not helped with medication, or new onset shoulder or back pain, then you shouldhave someone take you to the ER. Please call us with any concerns or questions. SCRAP DROP ENGINEER nurse line [phone], or after hours MD line [phone]. documented in this encounter Plan of Treatment Upcoming Encounters Date Type Department Care Team (Late st Contact Info) Description 02/21/2024 9:45 EDT Office Visit [facility] Adult Primary Care - [address] [address] Carrington Calderon MD [address] [phone] 02/27/2024 8:30 EDT Telemedicine [facility] Sleep Program - [address] [address] Rn, Sleep 02/29/2024 10:30 EDT Appointment [facility] Radiology Nuclear Medicine and PET [address] [address] 02/29/2024 14:30 EDT Appointment [facility] Radiology Nuclear Medicine and PET [address] [address] 03/01/2024 8:00 EDT Appointment [facility] Radiology Nuclear Medicine and PET [address] [address] 03/01/2024 9:30 EDT Appointment [facility] Radiology Nuclear Medicine and PET [address] [address] documented as of this encounter Visit Diagnoses Not on filedocumented in this encounter Care Teams Card Mounter Relationship Specialty Start Date End Date None, Provider PCP - General 06/18/19 11/25/19 documented as of this encounter
--- OUTSIDE RECORDS SUMMARY | 2023-12-16 00:44 | XMS_ITS | Encounter Summary ---
Author Organization [facility] Address [address] [place] [address] Care Team Providers Care Organ Assembler Name Role Phone None, Provider Primary Care Provider Unavailabl e Reason for Visit * Reason Comments Social Work Encounter Details Date Type Department Care Team (Late st Contact Info) Description 10/12/2019 Community Health Team [facility] Women's Services - [address] [address] Eryn Diaz Social History Tobacco Use Types [...] encounter Progress Notes * Eryn Diaz - 10/12/2019 1318 EDT SW rec'd call from RN Jordyn Wolfe who is going to submit [facility] referral. Disc pt's need for care coord support to connect her with a therapist in the community and for imminent emo support related tomiscarriage. SW spoke with pt - intro SW role and supports, assessed pt's needs, and worked to build initial rapport. Pt rep this is her 7th miscarriage and it doesn't get any easier. Pt lives with her Fermin, 8yo step francois, and 3 foster children in [place]. Pt grateful Fermin took the children to a family member's for the weekend for her to have some space / time to grieve. Top 3 supports: My Fermin, my Mom, and my sister. Pt's mo and sis are with her currently and her mo will be attending her appt later today with Dr. David Martínez. Pt referenced she has 2 dogsand 1 is a service dog. Self-care plans for the weekend inc puppy love and I want to get some sleep - I haven't been sleeping. SW pos reinforced. Addressed the following re care coordination: - Disc [facility] therapeutic group practice in [place] that specializes in working with women who have exp losses - Disc psychiatric and add'l loss support that can be provided via [facility] Denita Brantley or Dr. 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 Fermin is a shaft mechanic ($15/hour) and still working. SW disc it's highly likely family would be elig for both 3 Squares and unemployment benefits - explained eligcriteria has been relaxed and more folks are rec benefits d/t crisis - SW will revisit.) SW and pt made plans to disc further next week because Everything's a blur right now. Pt prefers ph to video call. Next SW appt 10/15 - SW will connect pt with thx in the community and can provide short-term couns in the interim. SW will copy Jordyn and David as a fyi. [facility] Total Time: 55 min total 20 min via ph with pt 20 min care coord 15 min charting Referral: n/a Follow up: Date: Wednesday, October 16, 2019 Time: 11:30 AM With: Eryn Diaz X Ray Technologist Location: ph Status: Active documented in this encounter Plan of Treatment Upcoming Encounters Date Type Department Care Team (Late st Contact Info) Description 02/21/2024 9:45 EDT Office Visit [facility] Adult Primary Care [address] [phone] Carrington Calderon MD [address] [place] [phone] 02/27/2024 8:30 EDT Telemedicine [facility] Sleep Program - [address] [phone] Rn, Sleep 02/29/2024 10:30 EDT Appointment [facility] Radiology Nuclear Medicine and PET [address] [phone] 02/29/2024 14:30 EDT Appointment [facility] Radiology Nuclear Medicine and PET [address] [phone] 03/01/2024 8:00 EDT Appointment [facility] Radiology Nuclear Medicine and PET [address] [id number] 03/01/2024 9:30 EDT Appointment [facility] Radiology Nuclear Medicine and PET [address] [phone] documented as of this encounter Visit Diagnoses Not on filedocumented in this encounter Care Teams Organ Assembler Relationship Specialty Start Date End Date None, Provider PCP - General 06/18/19 11/25/19 documented as of this encounter
--- OUTSIDE RECORDS SUMMARY | 2023-12-16 00:44 | XMS_ITS | Encounter Summary ---
Author Organization [facility] Address [address] [place] [address] Care Team Providers Care Principal Java Software Engineer Name Role Phone None, Provider Primary Care Provider Unavailabl e Reason for Visit * Reason Comments Nutrition Counseling Type 2 DM first tri mester * Consult (Routine) - Order Cancelled Specialty Diagnoses / Procedures Referred By Kit goode Referred To Contact Obstetrics Diagnoses with type 2 diabetes mellitus in first trimester Mayra Lund MD [address] [place] [phone] [facility] Ep4 Ob/Mfm [address] [place] [id number] Referral ID Status Reason Start Date Expiration Date Visits Requested Visits Authorized [id number] Order Cancelled Specialty Services Required 10/01/2019 1 1 Encounter Details Date Type Department Care Team (Late st Contact Info) Description 10/08/2019 14:00 EDT Nutrition [facility] Obstetrics & Midwifery - [facility] [address] [place], [place] [phone] Construction Or Leak Gang Laborer, [facility] Obgyn Class 2 severe obesity due to excess calories with serious comorbidity in adult, unspecified BMI ([facility]); Type 2 diabetes mellitus with other specified complication, unspecified whether terminal block assembler insulin use ([facility]) Social History Tobacco Use Types Packs/Day [...] as of this encounter Progress Notes * Carline Weathers, RD - 10/08/2019 1400 EDT staff physical therapist Clinic Initial Nutrition Assessment Form Attempted Telehealth visit, but Telehealth is not available (for me or for the patient). Obtained verbal consent from patient or the patient's adult independent sales representative for use of the telephone to conductan office visit. Advised pt that this visit will be billed to Medicaid. Subjective: Patient is 34 y.o. female here for a follow-up visit for medical nutrition therapy for Type II DM. 9w. Referring Provider: Mayra Muniz endorses history of significant weight loss (~300 lbs) with diet and exercise several years ago. She states general idea of healthy eating, including portion sizes, increasing fruits and vegetables, and physical activity. She is not eating particularly different to how she usually does, but perhaps more mindful of portions. doing grocery shopping/cooking. Diet Recall: Breakfast: whole grain toast + butter + oatmeal/cheerios; cup of coffee w/ creamer Lunch: fruit or salad Dinner: chix/steak/salmon + vegetable +sometimes starch Beverages: water through the day, warm gingerale to settle stomach Snacks: AM/PM: nuts+cheese+dry fruit Social: Marital Status: Working: no Job: Staying at home Exercise: hurt ankle recently; hiking/working out Patient was accompanied by: patient Objective: Height: 64 Pre- Weight: 195 lb Pre- BMI: 33.5 kg/m2 Current Weight: 207lb Weight Gain: 5-9 kg//11-20 lb recommended based on prepreg BMI Wt Readings from Last 12 Encounters: 11/02/19 94.3 kg (207 lb 12.8 oz) 10/12/19 88.5 kg (195 lb) 10/11/19 88.5 kg (195 lb) 11/10/18 95.7 kg (211 lb) 10/26/18 96.1 kg (211 lb 13.8 oz) 09/03/15 (!) 109.8 kg (242 lb) 05/12/10 (!) 138.8 kg (306 lb) Past Medical History: Diagnosis Date ??? Depression ??? Diabetes mellitus ([facility]) ??? Migraine, unspecified, without mention of intractable migraine without mention of status migrainosus ??? Obesity, unspecified ??? Rh negative state in antepartum period ??? Spontaneous miscarriage 09/04/201502/18, 08/19. Followed by Dr. López/Affiliates in [place] Labs: Lab Results Component Value Date/Time HGBA1C 10.9 11/03/2018 10:47 GLUCOSEPOC 221 (A) 07/15/2016 12:28 Last week high 200s, Tuesday higher 100s, Tuesday/Tuesday: 155mg/dL Current Outpatient Medications: blood glucose meter blood glucose test strips folic acid (FOLVITE) 1 mg tablet insulin glargine (LANTUS SOLOSTAR) 100 unit/mL (3 mL) injection pen lancets metFORMIN (GLUCOPHAGE) 500 mg tablet Assessment: Patient seen for complicated by type 2 diabetes. She reports overall ability to make healthful meal choices and feels her typical meals are pretty similar to the recommendations for type 2 diabetes through . Reviewed carbohydrate sources, target carbs per meal, importance of balanced meals/adequate nutrition, and benefits of exercise. Patient expressed understanding of topics reviewed. Educational materials provided: Gestational Diabetes Nutrition Therapy, Diabetes and Carbohydrate Counting, Method: Handout and Verbal Taught to: Patient Barriers: None Outcomes: independent and verbalized understanding Plan: Recommendations: Carbohydrates per meal: Breakfast: 30 g, Snacks: AM and PM 0-30 g, Lunch: 45-60 g and Supper: 45-60g Other: Label reading for carbs, monitor portion sizes, balanced meals, exercise as able Consent: The concept of ???Telemedicine?? has been described [...] in patient???s medical or mental health care. Today's visit was provided via telephone: The location of the patient: Home The location of the provider: Home The following people (and their respective roles) participated in today's encounter: Cristy Lou, patient Carline Weathers RD,CD, dietitian This visit was conducted by telephone. I spent a total of 33 minutes in discussion with the patientas described in the progress note. Handouts were provided to patient via email. Carline Weathers RD, CD documented in this encounter Plan of Treatment Upcoming Encounters Date Type Department Care Team (Late st Contact Info) Description 02/21/2024 9:45 EDT Office Visit [facility] Adult Primary Care - [address] [phone] Carrington Calderon MD 1 [facility] [address] [place] [phone] 02/27/2024 8:30 EDT Telemedicine [facility] Sleep Program - [address] [address] Rn, Sleep 02/29/2024 10:30 EDT Appointment [facility] Radiology Nuclear Medicine and PET - [address] [address] 02/29/2024 14:30 EDT Appointment [facility] Radiology Nuclear Medicine and PET - [address] [address] 03/01/2024 8:00 EDT Appointment [facility] Radiology Nuclear Medicine and PET - [address] [address] 03/01/2024 9:30 EDT Appointment [facility] Radiology Nuclear Medicine and PET - [address] [address] documented as of this encounter Visit Diagnoses Diagnosis Class 2 severe obesity due to excess calories with serious comorbidity in adult, unspecified BMI ([facility]) Type 2 diabetes mellitus with other specified complication, unspecified whether terminal block assembler insulin use ([facility]) documented in this encounter Care Teams Principal Java Software Engineer Relationship Specialty Start Date End Date None, Provider PCP - General 06/18/19 11/25/19 documented as of this encounter
--- OUTSIDE RECORDS SUMMARY | 2023-12-16 00:44 | XMS_ITS | Encounter Summary ---
Author Organization [facility] Address [address] [place] [address] Care Team Providers Care Trainer Name Role Phone None, Provider Primary Care Provider Unavailabl e Reason for Visit * Reason Onset Date Comments Advice Only 10/02/2019 Encounter Details Date Type Department Care Team (Late st Contact Info) Description 10/02/2019 Telephone [facility] Women's Services [address] [phone] Deepali Le MD [address] [facility], Level [address] [place] [address] Advice Only Social History Tobacco Use Types [...] encounter Miscellaneous Notes * Telephone Encounter - Mary Regalado RN - 10/02/2019 1021 EDT Return call to patient- no answer, left msg. Advised patient that per Dr. Lund' note from yesterday, plan was for NIPT testing which is done around 12 weeks. Advised we could coordinate this for when she returns to clinic for US and APV at the end of October (October 29). Asked that patient call back to clarify/confirm this was her intention before scheduling. PA pending per MD note. Also- is she interested in CF/SMA testing? [facility] phone number left and requested patient call back. * Telephone Encounter - Cynthia Costello - 10/02/2019 0809 EDT I called pt this morning to inform her of 3 scheduled appts (1 nutrition, 1 ultrasound and 1 routine ). She said yes to all three but asked if she would be getting bloodwork done at the visit(s) at the end on October, around her 12wk zandra. She would like to discuss this with a nurse. She can be reached at: [phone] documented in this encounter Plan of Treatment Upcoming Encounters Date Type Department Care Team (Late st Contact Info) Description 02/21/2024 9:45 EDT Office Visit [facility] Adult Primary Care - [address] [phone] Carrington Calderon MD 1 [facility] Level 1 [place] [phone] 02/27/2024 8:30 EDT Telemedicine [facility] Sleep Program - [address] [place] [address] [place] [address] Rn, Sleep 02/29/2024 10:30 EDT Appointment [facility] Radiology Nuclear Medicine and PET - [address] [address] 02/29/2024 14:30 EDT Appointment [facility] Radiology Nuclear Medicine and PET - [address] [address] 03/01/2024 8:00 EDT Appointment [facility] Radiology Nuclear Medicine and PET [address] 780721 03/01/2024 9:30 EDT Appointment [facility] Radiology Nuclear Medicine and PET [address] [id number] documented as of this encounter Visit Diagnoses Not on filedocumented in this encounter Care Teams Trainer Relationship Specialty Start Date End Date None, Provider PCP - General 06/18/19 11/25/19 documented as of this encounter
--- OUTSIDE RECORDS SUMMARY | 2023-12-16 00:44 | XMS_ITS | Encounter Summary ---
Author Organization [facility] Address [address] [place] [address] Care Team Providers Care Strap Stitcher Name Role Phone None, Provider Primary Care Provider Unavailabl e Encounter Details Date Type Department Care Team (Latest Contact Info) Description 10/11/2019 Travel Social History Tobacco Use Types Packs/Day [facility] - [address] [address] Carrington Calderon MD [address] [facility] 1 [place] [address] 02/27/2024 8:30 EDT Telemedicine [facility] Sleep Program - [address] [address] Rn, Sleep 02/29/2024 10:30 EDT Appointment [facility] Radiology Nuclear Medicine and PET [address] 694991 02/29/2024 14:30 EDT Appointment [facility] Radiology Nuclear Medicine and PET [address] [phone] 03/01/2024 8:00 EDT Appointment [facility] Radiology Nuclear Medicine and PET [address] 387491 03/01/2024 9:30 EDT Appointment [facility] Radiology Nuclear Medicine and PET [address] 307811 documented as of this encounter Visit Diagnoses Not on filedocumented in this encounter Care Teams Strap Stitcher Relationship Specialty Start Date End Date None, Provider PCP - General 06/18/19 11/25/19 documented as of this encounter
--- OUTSIDE RECORDS SUMMARY | 2023-12-16 00:44 | XMS_ITS | Encounter Summary ---
Author Organization [facility] Address [address] [place] [address] Care Team Providers Care Ui Software Developer Name Role Phone None, Provider Primary Care Provider Unavailabl e Reason for Visit * Reason Onset Date Comments 08/30/2019 Encounter Details Date Type Department Care Team (Late st Contact Info) Description 08/30/2019 Telephone [facility] Obstetrics & Midwifery - [facility] [address] [place] [address] Kylah Jimenes RN Social History Tobacco Use Types Packs/Day [...] Telephone Encounter - Kylah Jimenes RN - 08/30/2019 1551 EDT [facility] Initial Appt Screening Form Best Contact Number: [phone] [facility] Provider: HUGO Previous [facility] Patient: YES: No Referred by: self High Risk Indication: T2DM LMP/Pt estimate gestational age: 0207/23/19 - one day, 06/25/19 -seven days Date of Positive Test: 08/24/19 Cycle Length: 28 G 6 P 0050 -- per Pt Height: 64 Weight At LMP: 195lb Blood type: Lab Results Component Value Date/Time BTYP B NEG 02/11/2015 14:34 Current medications/supplements: metformin 1000mg daily, lantus 15 units QHS Do you smoke, drink or use other drugs: none Have you had problems with any prior pregnancies: ectopic Other medical conditions: none Vaginal bleeding since LMP: No Cramping since LMP: No Prior US with heartbeat, or showing normal inside the uterus?: No Risk factors for ectopic ? Has had previous tubal or ectopic Ultrasound scheduled: not yet -- pending HCGs Plan: HCGs x2 episode opened: No New patient packet mailed to confirmed address in PRISM: No Other comments: Has seen Endo, but not since 11/22. Previous ectopic -- notes in [facility]. HCG orders placed. Pt aware to get drawn 48 hours apart. She isaware that she will get a call from a nurse with a plan after the results are in. She is agreeable to this. Message routed to BOB[employer] CLEANER HAND team to get into [employer]. documented in this encounter Plan of Treatment Upcoming Encounters Date Type Department Care Team (Late st Contact Info) Description 02/21/2024 9:45 EDT Office Visit [facility] Adult Primary Care - [address] [address] Carrington Calderon MD 1 [facility] Level 1 [place] [address] 02/27/2024 8:30 EDT Telemedicine [facility] Sleep Program - [address] [place] [address] [place], [place] [phone] Rn, Sleep 02/29/2024 10:30 EDT Appointment [facility] Radiology Nuclear Medicine and PET [address] [address] 02/29/2024 14:30 EDT Appointment [facility] Radiology Nuclear Medicine and PET - [address] [address] 03/01/2024 8:00 EDT Appointment [facility] Radiology Nuclear Medicine and PET [address] 345041 03/01/2024 9:30 EDT Appointment [facility] Radiology Nuclear Medicine and [address] [phone] documented as of this encounter Results * (ABNORMAL) QUANT BETA HCG, (09/02/2019 9:42 EDT) [facility] Signature Beta HCG Quant, 707(H) <5 mIU/ml 09/02/2019 10:30 EDT [facility] Comment: NOTE: : Negative: [...] MD CHEMISTRY & BLOO D GAS ORDERABLES [facility] [address] [place] [address] documented in this encounter Visit Diagnoses Diagnosis affected by previous ectopic - Primary documented in this encounter Care Teams Ui Software Developer Relationship Specialty Start Date End Date None, Provider PCP - General 06/18/19 11/25/19 documented as of this encounter
--- OUTSIDE RECORDS SUMMARY | 2023-12-16 00:44 | XMS_ITS | Encounter Summary ---
Author Organization [facility] Address [address] [place] [address] Care Team Providers Care Photogrammetric Surveyor Name Role Phone None, Provider Primary Care Provider Unavailabl e Reason for Visit * Reason Onset Date Comments Vaginal Bleeding 10/02/2019 Encounter Details Date Type Department Care Team (Late st Contact Info) Description 10/02/2019 Telephone [facility] Obstetrics & Midwifery - [facility] [address] [place] [address] Jenny Heart, RN Vaginal Bleeding Social History Tobacco Use Types [...] Telephone Encounter - Jenny Heart RN - 10/02/2019 1532 EDT Phone call to rCisty ([id number]) - she has a confirmed IUP via first trimester early dating scan. Shestates that mid-day today she noticed a very little bit of blood on her underwear and then when shewent to wipe after using the bathroom she had some dark red blood. The next 2 time she used bathroom she had some brighter red blood w/ wiping (little amount per patient); and then since then she hashad the spotting with every other time she uses the restroom. Has not noticed any more blood on her underwear and notes that it stops when she is resting/not active. Denies abdominal cramping/pain.Did have vaginal intercourse yesterday. Blood type B negative. Discussed with Dr. Duvall - should administer RhoGAM, okay to schedule tomorrow. Phone call to Cristy and scheduled her for RhoGAM tomorrow. Reviewed to call if bleeding gets heavier or if she starts having any cramping/pain. Cristy verbalized understanding and was okay with plan. * Telephone Encounter - Jenny Heart RN - 10/02/2019 1502 EDT Voicemail from Cristy stating she had some bloody-like discharge today and wanting to speak to anurse about this. She is also blood type B negative. documented in this encounter Plan of Treatment Upcoming Encounters Date Type Department Care Team (Late st Contact Info) Description 02/21/2024 9:45 EDT Office Visit [facility] Adult Primary Care - [address] [address] Carrington Calderon MD [address] [place] [address] 1 [place] [address] 02/27/2024 8:30 EDT Telemedicine [facility] Sleep Program - [address] [address] Rn, Sleep 02/29/2024 10:30 EDT Appointment [facility] Radiology Nuclear Medicine and PET - [address] [address] 02/29/2024 14:30 EDT Appointment [facility] Radiology Nuclear Medicine and PET [address] [phone] 03/01/2024 8:00 EDT Appointment [facility] Radiology Nuclear Medicine and PET [address] [phone] 03/01/2024 9:30 EDT Appointment [facility] Radiology Nuclear Medicine and PET [address] 561281 documented as of this encounter Visit Diagnoses Not on filedocumented in this encounter Care Teams Photogrammetric Surveyor Relationship Specialty Start Date End Date None, Provider PCP - General 06/18/19 11/25/19 documented as of this encounter
--- OUTSIDE RECORDS SUMMARY | 2023-12-16 00:44 | XMS_ITS | Encounter Summary ---
Author Organization [facility] Address [address] [place] [address] Care Team Providers Care Wood Treating Inspector Name Role Phone None, Provider Primary Care Provider Unavailabl e Encounter Details Date Type Department Care Team (Late st Contact Info) Description 08/31/2019 8:45 EDT Phlebotomy Only [facility] Center 2 Phlebotomy [address] [place] [address] Grease And Tallow Pumper, Acc Phlebotomy Ectopic , unspecified location, unspecified whether intrauterine present; affected by previous ectopic Social History Tobacco Use Types Packs/Day [...] Visit [facility] Adult Primary Care - [address] [phone] Carrington Calderon MD [address] [address] 02/27/2024 8:30 EDT Telemedicine [facility] Sleep Program - [address] [phone] Rn, Sleep 02/29/2024 10:30 EDT Appointment [facility] Radiology Nuclear Medicine and PET [address] 988491 02/29/2024 14:30 EDT Appointment [facility] Radiology Nuclear Medicine and PET [address] [phone] 03/01/2024 8:00 EDT Appointment [facility] Radiology Nuclear Medicine and PET [address] [id number] 03/01/2024 9:30 EDT Appointment [facility] Radiology Nuclear Medicine and PET [address] [phone] documented as of this encounter Procedures Procedure Name Priority Date/Time Associated Diagnosis Comments QUANT BETA HCG, Routine 08/31/2019 8:45 EDT Ectopic , unspecified location, unspecified whether intrauterine present documented in this encounter Results * (ABNORMAL) QUANT BETA HCG, (08/31/2019 8:45 EDT) Beta HCG Quant, 316(H) <5 mIU/ml 08/31/2019 11:17 EDT [facility] Comment: NOTE: : Negative: Less than 5mIU/mL Indeterminant: Between 5 and 25 mIU/mL, recommend repeat testing in 48 hours Positive: Greater than 25 mIU/mL The results of this assay can be falsely lowered due to the consumption of Biotin. Blood 08/31/2019 8:45 EDT 08/31/2019 10:29 EDT Charu Flynn MD CHEMISTRY & BLOO D GAS ORDERABLES [facility] [address] [place] [address] documented in this encounter Visit Diagnoses Diagnosis Ectopic , unspecified location, unspecified whether intrauterine present affected by previous ectopic documented in this encounter Care Teams Wood Treating Inspector Relationship Specialty Start Date End Date None, Provider PCP - General 06/18/19 11/25/19 documented as of this encounter
--- OUTSIDE RECORDS SUMMARY | 2023-12-16 00:44 | XMS_ITS | Encounter Summary ---
Author Organization [facility] Address [address] [place] [address] Care Team Providers Care Coffee Brewer Name Role Phone None, Provider Primary Care Provider Unavailabl e Reason for Visit * Reason Onset Date Comments Coordination Of Care 09/18/2019 Encounter Details Date Type Department Care Team (Late st Contact Info) Description 09/18/2019 Telephone [facility] Women's Services [facility] [address] [place] [address] Cristy Richmond, RN Coordination Of Care Social History Tobacco Use [...] Miscellaneous Notes * Telephone Encounter - Cristy Richmond RN - 09/18/2019 0828 EDT episode created. documented in this encounter Plan of Treatment Upcoming Encounters Date Type Department Care Team (Late st Contact Info) Description 02/21/2024 9:45 EDT Office Visit [facility] Adult Primary Care - [address] [phone] Carrington Calderon MD [address] [place] [phone] 02/27/2024 8:30 EDT Telemedicine [facility] Sleep Program - [address] 934391 Rn, Sleep 02/29/2024 10:30 EDT Appointment [facility] Radiology Nuclear Medicine and [address] [phone] 02/29/2024 14:30 EDT Appointment [facility] Radiology Nuclear Medicine and PET [address] [address] 03/01/2024 8:00 EDT Appointment [facility] Radiology Nuclear Medicine and PET [address] [address] 03/01/2024 9:30 EDT Appointment [facility] Radiology Nuclear Medicine and PET [address] 861731 documented as of this encounter Visit Diagnoses Not on filedocumented in this encounter Care Teams Coffee Brewer Relationship Specialty Start Date End Date None, Provider PCP - General 06/18/19 11/25/19 documented as of this encounter
--- OUTSIDE RECORDS SUMMARY | 2023-12-16 00:44 | XMS_ITS | Encounter Summary ---
Author Organization [facility] Address [address] [place] [address] Care Team Providers Care Chief Nurse Name Role Phone None, Provider Primary Care Provider Unavailabl e Encounter Details Date Type Department Care Team (Latest Contact Info) Description 09/17/2019 Travel Social History Tobacco Use Types Packs/Day [...] Description 02/21/2024 9:45 EDT Office Visit [facility] Adult Primary Care - [address] 726331 Carrington Calderon MD [address] [address] 02/27/2024 8:30 EDT Telemedicine [facility] Sleep Program - [address] [address] Rn, Sleep 02/29/2024 10:30 EDT [facility] [address] [address] 02/29/2024 14:30 EDT Appointment [facility] Radiology Nuclear Medicine and PET [address] [phone] 03/01/2024 8:00 EDT Appointment [facility] Radiology Nuclear Medicine and PET [address] [id number] 03/01/2024 9:30 EDT Appointment [facility] Radiology Nuclear Medicine and PET [address] [phone] documented as of this encounter Visit Diagnoses Not on filedocumented in this encounter Care Teams Chief Nurse Relationship Specialty Start Date End Date None, Provider PCP - General 06/18/19 11/25/19 documented as of this encounter
--- OUTSIDE RECORDS SUMMARY | 2023-12-16 00:44 | XMS_ITS | Encounter Summary ---
Author Organization [facility] Address [address] [place] [address] Care Team Providers Care Print Binding And Finishing Worker Name Role Phone Benita Shafer GUSTVAO Primary Care Provider [phone] Reason for Visit * Reason Onset Date Comments Appointment Related 03/02/2019 Encounter Details Date Type Department Care Team (Late st Contact Info) Description 03/02/2019 Telephone [facility] Obstetrics & Midwifery - [facility] [address] [place], [place] [phone] Deborah Prakash MD 111 [facility], Level [address] [place] [address] Appointment Related Social History Tobacco Use Types [...] Miscellaneous Notes * Telephone Encounter - Mere Alexander - 03/02/2019 1602 EDT Reason for appointment or cancellation as described by patient: I called the patient to reschedule her [facility] CON appointment. Her phone number had calling restrictions and the call could not be completed. Date of appointment: 03/02 Mere Alexander 03/02/2019 16:02 documented in this encounter Plan of Treatment Upcoming Encounters Date Type Department Care Team (Late st Contact Info) Description 02/21/2024 9:45 EDT Office Visit [facility] Adult Primary Care - [address] [phone] Carrington Calderon MD [address] [place] [phone] 02/27/2024 8:30 EDT Telemedicine [facility] Sleep Program - [address] [address] Rn, Sleep 02/29/2024 10:30 EDT Appointment [facility] Radiology Nuclear Medicine and PET - [address] 1775[address] 02/29/2024 14:30 EDT Appointment [facility] Radiology Nuclear Medicine and PET - [address] [phone] 03/01/2024 8:00 EDT Appointment [facility] Radiology Nuclear Medicine and PET [address] 439931 03/01/2024 9:30 EDT Appointment [facility] Radiology Nuclear Medicine and PET [address] 705581 documented as of this encounter Visit Diagnoses Not on filedocumented in this encounter Care Teams Print Binding And Finishing Worker Relationship Specialty Start Date End Date Benita Shafer NP PCP - General 08/22/18 06/17/19 documented as of this encounter
--- OUTSIDE RECORDS SUMMARY | 2023-12-16 00:44 | XMS_ITS | Encounter Summary ---
Author Organization [facility] Address [address] [place] [address] Care Team Providers Care Patient Relations Liaison Name Role Phone None, Provider Primary Care Provider Unavailabl e Reason for Visit * Reason Comments Initial Visit Encounter Details Date Type Department Care Team (Late st Contact Info) Description 10/01/2019 15:00 EDT Telemedicine [facility] Obstetrics & Midwifery - [address] [phone] Deepali Le MD [address] [facility], [address] [place] [address] with type 2 diabetes mellitus in first trimester (Primary Dx); complicated by previous recurrent miscarriages in first trimester; Rh negative status during in first trimester; Obesity affecting in first trimester; High-risk in first trimester Social History Tobacco Use Types Packs/Day Years [...] by patient's insurance. 100 Each 10/01/2019 10/01/2020 blood glucose test strips One Touch Verio IQ or other brand compatible with meter and covered by patient's insurance. Testing QID. 100 Each 10/01/2019 08/11/2020 folic acid (FOLVITE) 1 mg tablet Take 4 Tabs by mouth daily. 100 Tab 3 10/01/2019 12/05/2019 documented in this encounter Progress Notes * Mayra Lund MD - 10/01/2019 1500 EDT [facility] Maternal Medicine History & Physical Cristy Luo is a 34 y.o. at 7w5d based on first trimester ultrasound not consistent with LMP who presents for care. She was seen today by telemedicine video visit. This is complicated by: 1. T2DM, poorly controlled and previously managed through her PCP office - Most recently A1c available October 2018 10.9. In the last few years it has ranged from 8.8-11.2. Hasn't seen an forest products gatherer in about a year due to some insurance issues. - Current regimen: Metformin 500 mg bid, and Lantus 15 units qhs. Previously used log sliding scalewith meals. - Hasn't checked glucose in over a week because ran out of test strips, but prior to this fastings average 125. Middle of the day average 145-170, typically pre-lunch. Evening before dinner and then before dinner <140. - Diagnosed 10 years ago. - Denies renal disease, thyroid disease, or chronic hypertension. - Eye Left - both related to shingles in left eye (twice) and hyperglycemia. Eye doctor November 2018 but doesn't think it was fundoscopic. - Grandfather with diabetes. 2. Recurrent first trimester miscarriage - She has seen [facility] for this issue. She was advised to get her diabetes under optimal control. Thyroid function panel was normal. Antiphospholipid syndrome testing was not performed as the plan initially was to optimize the patient's chronic health conditions first. She was recommended to have SHG but this has not occurred. She has had normal anatomy on first trimester pelvic ultrasounds. 3. Obesity - Current BMI 36 - Patient reports a history of weighing >500lb back in 2010, significant weight loss with diet and exercise. 4. Anxiety and depression - Not on medications for the last 10 years or so, was briefly on citalopram and it resulted in 3 suicide attempts while on medication, was inpatient during this time. Denies current issues. She is over-all feeling well today. Having some daily nausea, not much vomiting. Breast tenderness.Denies cramping or bleeding. OB History Para Term AB Living 8 0 0 0 7 0 SAB TAB Ectopic Multiple Live Births 6 0 1 0 0 # Outcome Date GA Lbr Partha/2nd Weight Sex Delivery Anes PTL Lv 8 Current 7 Ectopic 10/2018 10w4d ECTOPIC Comments: interstitial diagnosed at [facility]; given MTX 10/26/18 6 SAB 01/2018 6w0d SAB Comments: D&C at [facility] after nonviable on US; had to have repeat D&Bhavna November for retained POCs 5 06/2017 6w0d SAB Comments: D&C at [facility]; nonviable seen on US; fourth with current 4 SAB 02/2017 6w0d SAB Comments: D&C at [facility]; third with current 3 SAB 08/2015 10w0d SAB Comments: D&C at [facility]; 2nd with current 2 SAB 01/2015 9w0d SAB Comments: D&C at [facility]; first current 1 SAB 2005 6w0d SAB Comments: first ; ex ; twin confirmed by US at [facility]; no medical or surgical tx Past gynecological history: Regular monthly periods. Last Pap in January 2019 reports normal, never had abnormal Pap. No STIs. Past medical history: Cristy has a past medical history of Depression, Diabetes mellitus ([facility]), Migraine, unspecified, without mention of intractable migraine without mention of status migrainosus, Obesity, unspecified, Rh negative state in antepartum period, and Spontaneous miscarriage (09/04/2015). Current medications: Current Outpatient Medications: ??? blood glucose test strips, One Touch Verio IQ or other brand compatible with meter and covered by patient's insurance. Testing QID., Disp: 100 Each, Rfl: 5 ??? folic acid (FOLVITE) 1 mg tablet, Take 4 Tabs by mouth daily., Disp: 100 Tab, Rfl: 3 ??? insulin glargine (LANTUS SOLOSTAR) 100 unit/mL (3 mL) injection pen, Inject 10 Units into the skin at bedtime. , Disp: , Rfl: ??? lancets, One Touch Delica or other brand compatible with lancing device and covered by patient's insurance., Disp: 100 Each, Rfl: 5 ??? metFORMIN (GLUCOPHAGE) 500 mg tablet, Take 1,000 mg by mouth daily. , Disp: , Rfl: Past surgical history: Cristy has a past surgical history that includes other surgical history; Breast cyst excision; Dilation and curettage of uterus; Dilation and curettage of uterus; Dilation and curettage of uterus;Dilation and curettage of uterus; Dilation and curettage of uterus; Dilation and curettage of uterus; and Pilonidal cyst excision. Family history: Half-sister with hole in her heart and a leaking valve, had surgery when she was 5, her father's family had a lot of heart conditions, but Cristy is not related to that side of the family. FOB great uncles all had CA under age 35. FOB twin brother at 14 days of unclear reasons. Otherwise, Cristy is not aware of any history of defects, congenital anomalies or syndromic disordersin either her family or that of the father. Social history: Cristy lives with and his daughter, and they have three foster childrens. Quit smoking at the beginning of , prior to that was smoking 1/2-1ppd. Denies alcohol. Denies drugs. Stopped marijuana when she was diagnosed with . Allergies: Allergies Allergen Reactions ??? Citalopram Other (See Comments) suicidal ideation, approx 2012 ??? Advil [Ibuprofen] Hives With ibuprofen reports throat swells, SOB, rash, hot flushes. Has never tried aspirin. Objective: Last menstrual period 05/30/2019, unknown if currently . Pregravid BMI Could not be calculated General: Comfortable, NAD The remainder of physical exam was deferred for video consultation as the primary purpose of today's visit was for discussion. US: 09/17/2019: CRL 3.8 mm, FHR 105 bpm. 6w0d, not consistent with LMP. Otherwise normal US. Assessment & Recommendations: Cristy Luo is a 34 y.o. at 7w5d with complicated by: with type 2 diabetes mellitus in first trimester - We began by discussing the risks of diabetes in . Women with poorly controlled diabetes have an increased risk of miscarriage and increased risk of congenital anomaly, particularly cardiacand neural tube defects, related to the degree of glycemic control. I have prescribed supplemental folic acid 4 mg daily to reduce risk of NTD. Therefore we will plan for a first trimester anatomic mendez rvey at 11-13 weeks, detailed anatomy ultrasound at 20 weeks and a echocardiogram at 24 weeks. - Beyond the first trimester, we briefly discussed the implications of poor glycemic control on thepregnancy. Women with poorly controlled diabetes are at [...] and fructosamine ordered with labs. complicated by previous recurrent miscarriages in first trimester - Aside from normal first trimester ultrasounds [...] conclude in miscarriage. Rh negative status during - Precautions for vaginal bleeding reviewed, and reviewed need for Rhogam in the setting of bleeding or miscarriage. High-risk in first trimester - Reviewed [facility] group practice and clinic flow. - labs ordered today. - Desires cell free DNA, prior auth submitted today. Undecided on CF/SMA testing. - Patient reports normal Paps but unclear when last performed, will likely need at next visit. Precautions reviewed, all questions answered. We will plan for an TC part 2 visit when she presents for scheduled first trimester anatomic survey. She will have her labs done at that time. Seen and evaluated with Dr. Le. Mayra Lund MD PhD MFM Fellow, PGY5 Pager #[phone] Today's visit was provided through telemedicine audio-visual conferencing: Consent: The concept of telemedicine?? has been described to the patient. Patient has been informed of theanticipated benefits and possible risks. Patient understands the information provided regarding telemedicine, has had the opportunity to ask questions about this information, and all questions have been answered to patient's satisfaction. Patient consents for the use of telemedicine in his/her medical care and authorizes the transmission of any relevant medical information to providers and their staff involved in patient's medical or mental health care. The location of the patient : Home The location of the provider: Clinic Exam Room The following people (and their respective roles) participated in today's encounter: Cristy Huizar Valerio, patient Deepali Le MD, attending Mayra Lund MD, provider The audio-video application used to conduct the visit was [employer]. I spent a total of 15 minutes with Cristy Luo today and 15 minutes of that time was spent incounseling and coordination of care as described in the progress note. I saw and discussed the patient with the fellow at the time of her visit and agree with the above assessment and plan of care. No recent assessment of HbA1C. Continue metformin and lantus at this time, instructed on blood sugar monitoring and to communicate at least weekly. May benefit from endocrinology consult given long history of poor control. Deepali Le MD documented in this encounter Miscellaneous Notes * Assessment & Plan Note - Mayra Lund MD - 10/01/2019 1648 EDT Associated Problem(s): High-risk in first trimester (Resolved 11/02/2019) - Reviewed [facility] group practice and clinic flow. - labs ordered today. - Desires cell free DNA, prior auth submitted today. Undecided on CF/SMA testing. - Patient reports normal Paps but unclear when last performed, will likely need at next visit. * Assessment & Plan Note - Mayra Lund MD - 10/01/2019 1646 EDT Associated Problem(s): Rh negative status during (Resolved 11/02/2019) - Precautions for vaginal bleeding reviewed, and reviewed need for Rhogam in the setting of bleeding or miscarriage. 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 APLS work-up with [facility] was apparently deferred until her comorbid conditions were optimized. Certainly her elevated A1c is her greatest risk factor for miscarriage. However, additional work-up for recurrent loss would be warranted if the current were to conclude in miscarriage. * Assessment & Plan Note - Mayra Lund MD - 10/01/2019 1634 EDT Associated Problem(s): with type 2 diabetes mellitus in first trimester (Resolved 11/02/2019) - We began by discussing the risks of diabetes in . Women with poorly controlled diabetes have an increased risk of miscarriage and increased risk of congenital anomaly, particularly cardiacand neural tube defects, related to the degree of glycemic control. I have prescribed supplemental folic acid 4 mg daily to reduce risk of NTD. Therefore we will plan for a first trimester anatomic mendez rvey at 11-13 weeks, detailed anatomy ultrasound at 20 weeks and a echocardiogram at 24 weeks. - Beyond the first trimester, we briefly discussed the implications of poor glycemic control on thepregnancy. Women with poorly controlled diabetes are at [...] - HgBA1c and fructosamine ordered with labs. documented in this encounter Plan of Treatment Upcoming Encounters Date Type Department Care Team (Late st Contact Info) Description 02/21/2024 9:45 EDT Office Visit [facility] Adult Primary Care - [address] [phone] Carrington Calderon MD [address] [phone] 02/27/2024 8:30 EDT Telemedicine [facility] Sleep Program - [address] [address] Rn, Sleep 02/29/2024 10:30 EDT Appointment [facility] Radiology Nuclear Medicine and PET - [address] [id number] 02/29/2024 14:30 EDT Appointment [facility] Radiology Nuclear Medicine and PET - [address] [id number] 03/01/2024 8:00 EDT Appointment [facility] Radiology Nuclear Medicine and PET - [address] [address] 03/01/2024 9:30 EDT Appointment [facility] Radiology Nuclear Medicine and PET [address] [address] documented as of this encounter Visit Diagnoses Diagnosis with type 2 diabetes mellitus in first trimester- Primary complicated by previous recurrent miscarriages in first trimester Rh negative status during in first trimester Obesity affecting in first trimester High-risk in first trimester documented in this encounter Discontinued Medications Medication Sig Discontinue Reason Start Date End Da te insulin aspart U-100 (NOVOLOG FLEXPEN) 100 unit/mL injectable pen Inject 2-4 Units into the skin 3 times daily with meals. Sliding scale 10/01/2019 oxyCODONE (ROXICODONE) 5 mg/5 mL solution Take 5 mL by mouth every 4 hours as needed for Pain. Daily Max: 30 mg 11/21/2018 10/01/2019 pseudoephedrine (SUDAFED) 30 mg tablet Take 60 mg by mouth every 4 hours. 10/01/2019 UNKNOWN TO PATIENTIndications:bir th control Take by mouth. 10/01/2019 blood glucose test strips One Touch Verio IQ or other brand compatible with meter and covered by patient's insurance. Testing QID. Reorder 10/19/2018 10/01/2019 lancets One Touch Delica or other brand compatible with lancing device and covered by patient's insurance. Reorder 10/19/2018 10/01/2019 documented as of this encounter Care Teams Patient Relations Liaison Relationship Specialty Start Date End Date None, Provider PCP - General 06/18/19 11/25/19 documented as of this encounter
--- OUTSIDE RECORDS SUMMARY | 2023-12-16 00:44 | XMS_ITS | Encounter Summary ---
Author Organization 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) - Specialty Report Received Specialty Diagnoses / Procedures Referred By Contac t Referred To Contact Diagnoses of unknown anatomic location Procedures US OB FIRST TRIMESTER (LESS THAN 14 WEEKS) TRANSVAGINAL Charu Flynn MD [address] [place] [address] [address] [place] [address] Referral ID Status Reason Start Date Expiration Date V isits Requested Visits Authorized [id number] Specialty Report Received 09/03/2019 1 1 Reason for Visit * Reason Onset Date Comments Results 09/03/2019 Encounter Details Date Type Department Care Team (Late st Contact Info) Description 09/03/2019 Telephone [facility] Women's Services [address] [address] Susana Tomlinson, MARCELO Results Social History Tobacco Use Types Packs/Day [...] Telephone Encounter - Susana Tomlinson RN - 09/03/2019 1218 EDT Cristy [facility]: asking if blood work results are back. Spoke with Cristy: advised HCG on 09/01 = 707, increase from 316 on 08/30, appropriate rise, discussed with Dr. Oropeza, plan is u/s this week. U/S scheduled for 09/05/19 @ 1100am. Reviewed COVI19 screening will happen at both 3rd & 4th floors. Cristy said she quit smoking on 08/24 when had +home UPT, she has had a smokers cough since then, states has phlegm with cough, only coughed a few time yesterday & today only coughed once when woke up & none since. Denies fever, chills, SOB, runny nose, BUSH & diarrhea. States has not left her house in 3 weeks,children are at home with her, has been using Lysol on everything & using hand talent acquisition specialist. Advsied should put on a mask when arrives, tell screeners about cough, & will be directed appropriate. We will call her if there are any other directions. documented in this encounter Plan of Treatment Upcoming Encounters Date Type Department Care Team (Late st Contact Info) Description 02/21/2024 9:45 EDT Office Visit [facility] Adult Primary Care - [address] [phone] Carrington Calderon MD [address] [place] [phone] 02/27/2024 8:30 EDT Telemedicine [facility] Sleep Program - [address] [phone] Rn, Sleep 02/29/2024 10:30 EDT [facility] [address] [phone] 02/29/2024 14:30 EDT Appointment [facility] Radiology Nuclear Medicine and PET [address] [phone] 03/01/2024 8:00 EDT Appointment [facility] Radiology Nuclear Medicine and PET [address] [phone] 03/01/2024 9:30 EDT Appointment [facility] Radiology Nuclear Medicine and PET [address] [phone] documented as of this encounter Results * US OB FIRST TRIMESTER (LESS THAN 14 WEEKS) TRANSVAGINAL (09/05/2019 11:20 EDT) Anatomical Region Laterality Modality Pelvis Ultrasound 09/05/2019 11:0 7 EDT Narrative 09/05/2019 11:31 EDT Indication Early Assessment. History ======= Previous Outcomes ?6 Para ?? 0 Hopkins children born (T) ?0 [facility] children born (P) ?0 Abortions (A) ??5 Hopkins living children (L) ??0 Number of gestational sacs: 1. Dating ======= Method of dating: ??based on the LMP LMP on: ?07/23/2019 GA by LMP ??6 w + 2 d IVAN by LMP : ? 04/28/2020 Assigned: ??Dating performed on 09/05/2019 Based on the LMP Assigned GA ?6 w + 2 d Assigned IVAN: ??04/28/2020 Assessment Gestational sac: ?? Visualized Location: ??Intrauterine GS mean ?4.5 mm ??4% 5w 2d Rempen Yolk sac: ??Visualized Amniotic sac: ??Uncertain Embryo: ?Not visualized Maternal Structures Uterus / Cervix Uterus: ?Anteverted Uterus details: ?No abnormalities detected. Appears normal Cervix: ?Appears normal Ovaries / Tubes / Adnexa Rt ovary: ??Visualized, normal appearance Rt ovary D1 ?2.6 cm Rt ovary D2 ?1.2 cm Rt ovary D3 ?1.0 cm Rt ovary mean ??1.6 cm Rt ovary vol ?? 1.6 cm cubed Lt ovary: ??Normal with Corpus luteum Lt ovary D1 ?3.8 cm Lt ovary D2 ?1.7 cm Lt ovary D3 ?1.7 cm Lt ovary mean ??2.4 cm Lt ovary vol ?? 5.6 cm cubed Method ======== Transvaginal ultrasound examination. View: Sufficient. Impression 1st Trimester OB scan ,transvaginal +[id number] Single intrauterine gestational sac and yolk sac. A pole cannot be clearly identified on today's examination. Follow-up follow up US in 2 weeks. Comment ========= Z34.8 encounter for supervision of other normal . Results discussed w/patient. DATE OF SERVICE: 09/05/2019 Procedure Note Jonas Ojeda MD - 09/05/2019 Indication Early Assessment. History ======= Previous Outcomes 6 Para 0 Hopkins children born (T) 0 [facility] children born (P) 0 Abortions (A) 5 Hopkins living children (L) 0 Number of gestational sacs: 1. Dating ======= Method of dating: based on the LMP LMP on: 07/23/2019 GA by LMP 6 w + 2 d IVAN by LMP : 04/28/2020 Assigned: Dating performed on 09/05/2019 Based on the LMP Assigned GA 6 w + 2 d Assigned IVAN: 04/28/2020 Assessment Gestational sac: Visualized Location: Intrauterine GS mean 4.5 mm 4% 5w 2d Rempen Yolk sac: Visualized Amniotic sac: Uncertain Embryo: Not visualized Maternal Structures Uterus / Cervix Uterus: Anteverted Uterus details: No abnormalities detected. Appears normal Cervix: Appears normal Ovaries / Tubes / Adnexa Rt ovary: Visualized, normal appearance Rt ovary D1 2.6 cm Rt ovary D2 1.2 cm Rt ovary D3 1.0 cm Rt ovary mean 1.6 cm Rt ovary vol 1.6 cm cubed Lt ovary: Normal with Corpus luteum Lt ovary D1 3.8 cm Lt ovary D2 1.7 cm Lt ovary D3 1.7 cm Lt ovary mean 2.4 cm Lt ovary vol 5.6 cm cubed Method ======== Transvaginal ultrasound examination. View: Sufficient. Impression 1st Trimester OB scan ,transvaginal +[id number] Single intrauterine gestational sac and yolk sac. A pole cannot beclearly identified on today's examination. Follow-up follow up US in 2 weeks. Comment ========= Z34.8 encounter for supervision of other normal . Resultsdiscussed w/patient. DATE OF SERVICE: 09/05/2019 Charu Flynn MD IMG US OB ORDERA BLES documented in this encounter Visit Diagnoses Diagnosis of unknown anatomic location- Primary state, incidental of unknown anatomic location state, incidental documented in this encounter Care Teams Spindle Sander Relationship Specialty Start Date End Date None, Provider PCP - General 06/18/19 11/25/19 documented as of this encounter
--- OUTSIDE RECORDS SUMMARY | 2023-12-16 00:44 | XMS_ITS | Encounter Summary ---
Author Organization [facility] Address [address] [place] [address] Care Team Providers Care Auction Assistant Name Role Phone None, Provider Primary Care Provider Unavailabl e Encounter Details Date Type Department Care Team (Late st Contact Info) Description 09/05/2019 Orders Only [facility] Women's Services - [address] [address] Jonas Ojeda MD [address] [place] [address] [phone] Less than 8 weeks gestation of (Primary Dx) Social History Tobacco Use Types [...] [facility] Adult Primary Care - [address] [address] Carrington Calderon MD [address] [place] [phone] 02/27/2024 8:30 EDT Telemedicine [facility] Sleep Program - [address] [address] Rn, Sleep 02/29/2024 10:30 EDT Appointment [facility] Radiology Nuclear Medicine and PET [address] [address] 02/29/2024 14:30 EDT Appointment [facility] Radiology Nuclear Medicine and PET [address] [address] 03/01/2024 8:00 EDT Appointment [facility] Radiology Nuclear Medicine and PET [address] [phone] 03/01/2024 9:30 EDT Appointment [facility] Radiology Nuclear Medicine and PET [address] [phone] documented as of this encounter Visit Diagnoses Diagnosis Less than 8 weeks gestation of - Primary state, incidental documented in this encounter Care Teams Auction Assistant Relationship Specialty Start Date End Date None, Provider PCP - General 06/18/19 11/25/19 documented as of this encounter
--- OUTSIDE RECORDS SUMMARY | 2023-12-16 00:44 | XMS_ITS | Encounter Summary ---
Author Organization [facility] Address [address] [place] [address] Care Team Providers Care Medical Van Driver Name Role Phone None, Provider Primary Care Provider Unavailabl e Reason for Visit * Reason Comments Chest Pain Right side chest and back pain for 3 weeks, +pain with inspiration. Has had cold with nasal congestion and cough Headache Daily frontal headac he with photophobia. Encounter Details Date Type Department Care Team (Late st Contact Info) Description 06/18/2019 8:19 EST - 06/18/2019 15:19 EST Emergency [facility] Emergency Department - Main Nathalie [address] [place] [address] [phone] Omayra Schuler PA-C [address] [place] [address], [address] [place] [id number] Acute non-recurrent maxillary sinusitis (Primary Dx); Acute nonintractable headache, unspecified headache type; Hyperglycemia Discharge Disposition: Home or Self Care Social [...] Sign Reading Time Taken Comments Blood Pressure 105/66 06/18/2019 0900 EST Pulse 117 06/18/2019 0811 EST Temperature 36.6 ??C (97.9 ??F) 06/18/2019 0900 EST Respiratory Rate 14 06/18/2019 0811 EST Oxygen Saturation 100% 06/18/2019 0811 EST Inhaled Oxygen Concentration - - Weight - [...] this encounter Discharge Instructions * Discharge Instructions* Omayra Carrillo PA - 06/18/2019 9:55 EST You were seen in the ER with headaches and chest pain and in the setting of other cold symptoms. Like we discussed, your symptoms are most consistent with a sinus infection causing your headache. We will start you on an antibiotic (Augmentin) which should be taken twice per day for 10 days. Take this medication with food and full glass of water. You should plan to follow up with your PCP in 3-5 days for recheck. Come back to the ER if any significant worsening including severe worsening headache, worsening chest pain, difficulty breathing, or any new/concerning symptoms. * Attachments The following attachments cannot be sent through Care Everywhere. * Sinusitis (Cameroonian) documented in this encounter Medications at Time of Discharge Medication Sig Dispensed Refills Start Date End Date amoxicillin-clavulanat e (AUGMENTIN) 875-125 mg per tablet Take 1 Tab by mouth 2 times daily for 10 days. 20 Tab 06/18/2019 06/28/2019 blood glucose test strips One Touch Verio IQ or other brand compatible with meter and covered by patient's insurance. Testing QID. 100 Each 2 10/19/2018 10/01/2019 insulin aspart U-100 (NOVOLOG FLEXPEN) 100 unit/mL injectable pen Inject 2-4 Units into the skin 3 times daily with meals. Sliding scale 10/01/2019 insulin glargine (LANTUS SOLOSTAR) 100 unit/mL (3 mL) injection pen Inject 10 Units into the skin at bedtime. 11/26/2019 lancets One Touch Delica or other brand compatible with lancing device and covered by patient's insurance. 100 Each 2 10/19/2018 10/01/2019 metFORMIN (GLUCOPHAGE) 500 mg tablet Take 1,000 mg by mouth daily. 11/26/2019 oxyCODONE (ROXICODONE) 5 mg/5 mL solution Take 5 mL by mouth every 4 hours as needed for Pain. Daily Max: 30 mg 75 mL 11/21/2018 10/01/2019 pseudoephedrine (SUDAFED) 30 mg tablet Take 60 mg by mouth every 4 hours. 10/01/2019 UNKNOWN TO PATIENTIndications:bir th control Take by mouth. 10/01/2019 documented as of this encounter Ordered Prescriptions Prescription Sig Dispensed Refills Start Date End Da te amoxicillin-clavulanate (AUGMENTIN) 875-125 mg per tablet Take 1 Tab by mouth 2 times daily for 10 days. 20 Tab 06/18/2019 06/28/2019 documented in this encounter Discharge Disposition Disposition Code Departure Means Destination Home or Self Jail documented in this encounter ED Notes * Omayra Carrillo PA - 06/18/2019 0855 EST DOS: 06/18/2019 Chief Complaint Patient presents with ??? Chest Pain Right side chest and back pain for 3 weeks, +pain with inspiration. Has had cold with nasal congestion and cough ??? Headache Daily frontal headache with photophobia. HPI The patient is a 34 y.o. female who presents today with Chest Pain (Right side chest and back pain for 3 weeks, +pain with inspiration. Has had cold with nasal congestion and cough) and Headache (Daily frontal headache with photophobia.) HPI Patient is a 34-year-old female with history of type 2 diabetes, migraine headaches, chronic left ear pain, who presents the emergency department with URI symptoms and headaches. Patient states for the last 3 weeks she has had URI symptoms including nasal congestion, rhinorrhea, has also developed cough. Has had worsening right-sided thoracic pain started as right mid back pain, now has pain on the right anterior chest wall and parasternal area that wraps around to the right back, worsened withdeep inspiration. Cough is been primarily dry, has not had much sputum production or hemoptysis. Also reports a frontal headache, bitemporal, constant, pressure-like in quality, associated with photophobia. Endorses worsening of headache with forward bending. Symptoms not relieved with Sudafed or Tylenol. Denies fever and chills. Denies history of blood clot, chronically has some trace swelling in legs but not worsened lately, denies recent long-distance travel or immobilizations. 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 Review of Systems Review of Systems Constitutional: Negative for chills and fever. HENT: Positive for congestion, ear pain, rhinorrhea and sinus pressure. Negative for trouble swallowing and voice change. Respiratory: Positive for cough and shortness of breath. Cardiovascular: Positive for chest pain. Negative for palpitations. Gastrointestinal: Positive for nausea. Negative for abdominal pain, diarrhea and vomiting. Musculoskeletal: Negative for gait problem. Skin: Negative for pallor, rash and wound. Neurological: Positive for headaches. Negative for syncope. The patient's past medical, family and social history was reviewed and updated as needed. Allergies Allergen Reactions ??? Citalopram Other (See Comments) suicidal ideation, approx 2012 ??? Advil [Ibuprofen] Hives Vital Signs Vitals Reassessment?: Yes Temp: 36.6 ??C (97.9 ??F) Temp src: Temporal Pulse: (!) 117 Resp: 14 SpO2: 100 % BP: 105/66 Physical Exam Constitutional: She is oriented to person, place, and time. She appears well- developed and well-nourished. No distress. Nontoxic, sitting upright on stretcher, answering questions appropriately, no conversational dyspnea, no increased work of breathing HENT: Head: Normocephalic and atraumatic. Mouth/Throat: Oropharynx is clear and moist. EACs clear bilaterally. TMs diop and flat, normal bony landmarks. Nose clear. MMM. +Tenderness across bilateral maxillary sinuses. Eyes: Pupils are equal, round, and reactive to light. EOM are normal. Neck: Normal range of motion. Neck supple. Cardiovascular: Normal rate, regular rhythm and normal heart sounds. Exam reveals no gallop and no friction rub. No murmur heard. Pulmonary/Chest: Effort normal and breath sounds normal. No respiratory distress. She has no wheezes. She has no rales. She exhibits tenderness (Right anterior and lateral chest wall tenderness inferiorly). Abdominal: Soft. Bowel sounds are normal. There is no tenderness. Musculoskeletal: She exhibits no edema. No edema to bilateral lower extremities Neurological: She is alert and oriented to person, place, and time. No cranial nerve deficit or sensory deficit. She exhibits normal muscle tone. Skin: Skin is warm and dry. No rash noted. She is not diaphoretic. Psychiatric: She has a normal mood and affect. Vitals reviewed. RESULTS EKG orders: EKG 12-LEAD ECG Reviewed: Findings include: normal EKG, normal sinus rhythm. The study has been independently viewed by me. The study has been interpreted independently and contemporaneously by me. The EKG appears to be a good tracing. Attending distribution coordinator not immediately available for acute interpretation. Radiology orders: XR CHEST 2 VIEWS Imaging Reviewed. I have independently reviewed the images. There are no significant abnormalities Procedures ED COURSE A medical screening exam was performed. 34-year-old female with history of type 2 diabetes, migraine headaches, presenting to the emergencydepartment with cough, chest pain, and bifrontal headache in the setting of 3 weeks of URI symptoms. On exam she does have some tenderness over her bilateral maxillary sinuses. Her neurologic exam is unremarkable. There is also some tenderness over the right chest wall with palpation. In setting of protracted course of URI sx and cough, tenderness to palpation, and PERC negative less likely to be PE. Do not suspect ACS. Chest x-ray unremarkable. Labs notable only for hyperglycemia, states she has not taken her metformin today. At this point, work-up most consistent with sinusitis, for which patient will be started on oral antibiotics. Recommended follow-up with primary care physician and discussed [id number]-[id number] medications for pain control. Patient and family at bedside voiced understanding and agreement with this plan. Final diagnoses: Acute non-recurrent maxillary sinusitis Acute nonintractable headache, unspecified headache type Hyperglycemia DISPOSITION: Discharged The patient's pain was managed to an adequate level weighing risk vs. benefit of further medications. Upon departure from the Emergency Department, the patient's pain was 6 on a zero to ten scale. Any further pain treatment will be at the discretion of the provider following up with the patient based on their clinical assessment. Condition at departure from the Emergency Department: Good PCP: Provider None RAHEEM Gr was available for supervision. 06/18/2019 14:44 No flowsheet data found. * Judi Merrill RN - 06/18/2019 0837 EST 12 Lead EKG Performed by JUDI MERRILL RN and shown to Omayra Schuler PA. documented in this encounter Plan of Treatment Upcoming Encounters Date Type Department Care Team (Late st Contact Info) Description 02/21/2024 9:45 EDT Office Visit [facility] - [address] [id number] Carrington Calderon MD [address] [place] [phone] 02/27/2024 8:30 EDT Telemedicine [facility] Sleep Program - [address] [id number] Rn, Sleep 02/29/2024 10:30 EDT Appointment [facility] Radiology Nuclear Medicine and PET - [address] [address] 02/29/2024 14:30 EDT Appointment [facility] Radiology Nuclear Medicine and PET - [address] [address] 03/01/2024 8:00 EDT Appointment [facility] Radiology Nuclear Medicine and PET - [address] [address] 03/01/2024 9:30 EDT Appointment [facility] Radiology Nuclear Medicine and PET - [address] [address] documented as of this encounter Procedures Procedure Name Priority Date/Time Associated Diagnosis Comments ECG REPORT - SCANNED 06/18/2019 16:21 EST XR CHEST 2 VIEWS STAT 06/18/2019 9:31 EST COMPLETE BLOOD COUNT AND DIFFERENTIAL STAT 06/18/2019 9:01 EST BASIC METABOLIC PANEL (BMP) STAT 06/18/2019 9:01 EST EKG 12-LEAD STAT 06/18/2019 8:28 EST documented in this encounter Results * ECG REPORT - SCANNED (06/18/2019 16:21 EST) 06/18/2019 16:2 1 EST Scan 2 Relationship Management Lead PROCEDURE/MINOR BRAULIO GICAL ORDERABLES * XR CHEST 2 VIEWS (06/18/2019 9:31 EST) Anatomical Region Laterality Modality Computed Radiogr aphy 06/18/2019 10:2 1 EST Impressions 06/18/2019 10:21 EST No abnormality. I have personally reviewed the images and the above interpretation and agree with the findings. Narrative 06/18/2019 10:21 EST XR CHEST 2 VIEWS ??06/18/2019 9:16 AM CLINICAL HISTORY/COMMENTS: URI sx x 3 weeks and right sided chest pain, r/o PNA COMPARISON: 03/08/2016. TECHNIQUE: Frontal and lateral views of the chest were performed. FINDINGS: Soft tissues and extrathoracic findings: ??No significant abnormality. Bones: Unremarkable for age. Cardiac and mediastinal contours: Normal. Lungs: Pulmonary vasculature is normal. No consolidation is seen. ?? Pleura/diaphragms: No pneumothorax or pleural effusion is seen. Procedure Note Irineo Guevara MD - 06/18/2019 XR CHEST 2 VIEWS 06/18/2019 9:16 AM CLINICAL HISTORY/COMMENTS: URI sx x 3 weeks and right sided chest pain, r/o PNA COMPARISON: 03/08/2016. TECHNIQUE: Frontal and lateral views of the chest were performed. FINDINGS: Soft tissues and extrathoracic findings: No significant abnormality. Bones: Unremarkable for age. Cardiac and mediastinal contours: Normal. Lungs: Pulmonary vasculature is normal. No consolidation is seen. Pleura/diaphragms: No pneumothorax or pleural effusion is seen. IMPRESSION No abnormality. I have personally reviewed the images and the above interpretation andagree with the findings. Omayra Wrangell PA-C IMG DIAGNOSTIC IMAGING ORDERABLES * (ABNORMAL) BASIC METABOLIC PANEL (BMP) (06/18/2019 9:01 EST) Sodium 136 136 - 145 mEq/L 06/18/2019 9:25 [facility] Potassium 4.6 3.5 - 5.0 mEq/L 06/18/2019 9:25 [facility] Chloride 102 96 - 110 mEq/L 06/18/2019 9:25 [facility] CO2 Total 27 22 - 32 mEq/L 06/18/2019 9:25 [facility] Glucose 256(H) 70 - 100 mg/dL 06/18/2019 9:25 [facility] Calcium 9.2 8.5 - 10.5 mg/dL 06/18/2019 9:25 [facility] Calculated Calcium 9.4 8.5 - 10.5 mg/dL 06/18/2019 9:25 [facility] BUN 10 10 - 26 mg/dL 06/18/2019 9:25 [facility] Creatinine 0.43(L) 0.52 - 1.04 mg/dL 06/18/2019 9:25 [facility] eGFR 133 >60 mL/min/1.7 3m2 06/18/2019 9:25 [facility] Comment:eGFR calculated gil curtis CKD-EPI equation for non- Americans. Multiply eGFR by 1.16 for patients. Blood VENOUS BLOOD / Unknown Venipuncture / Unknown 06/18/2019 9:01 EST 06/18/2019 9:09 EST Omayra Wrangell PA-C CHEMISTRY & BLO OD GAS ORDERABLES [facility] [address] [place] [address] * (ABNORMAL) COMPLETE BLOOD COUNT AND DIFFERENTIAL (06/18/2019 9:01 [facility]) WBC 10.84 4.00 - 12.40 K/cmm 06/18/2019 9:15 [facility] RBC 4.58 3.86 - 5.04 M/cmm 06/18/2019 9:15 [facility] Hemoglobin 14.1 11.6 - 15.2 gm/dL 06/18/2019 9:15 [facility] HCT 40.9 34.9 - 44.4 % 06/18/2019 9:15 [facility] MCV 89 81 - 98 fl 06/18/2019 9:15 [facility] MCH 30.8 26.7 - 33.3 pg 06/18/2019 9:15 [facility] MCHC 34.5 32.1 - 35.9 gm/dL 06/18/2019 9:15 [facility] RDW-CV 12.2 <14.7 % 06/18/2019 9:15 [facility] RDW-SD 39.5 <50.4 fl 06/18/2019 9:15 [facility] PLT 349 141 - 377 K/cmm 06/18/2019 9:15 [facility] MPV 9.6 9.5 - 12.7 fl 06/18/2019 9:15 [facility] % Neutrophils 51.3 % 06/18/2019 9:15 [facility] % Lymphocytes 33.8 % 06/18/2019 9:15 [facility] % Monocytes 9.9 % 06/18/2019 9:15 [facility] % Eosinophils 4.2 % 06/18/2019 9:15 [facility] % Basophils 0.5 % 06/18/2019 9:15 [facility] % Immature Grans 0.3 % 06/18/19 20 9:15 [facility] Absolute Neutrophils 5.57 2.20 - 8.85 K/cmm 06/18/2019 9:15 [facility] Absolute Lymphocytes 3.66(H) 1.09 - 3.30 K/cmm 06/18/2019 9:15 [facility] Absolute Monocytes 1.07(H) 0.10 - 0.80 K/cmm 06/18/2019 9:15 [facility] Absolute Eosinophils 0.46 0.03 - 0.61 K/cmm 06/18/2019 9:15 [facility] ABS Basophils 0.05 0.01 - 0.11 K/cmm 06/18/2019 9:15 [facility] Absolute Immature Grans 0.03 0.00 - 0.06 K/cmm 06/18/2019 9:15 [facility] Type of Differential: Auto 06/18/2019 9:15 [facility] Blood VENOUS BLOOD / Unknown Venipuncture / Unknown 06/18/2019 9:01 EST 06/18/2019 9:09 EST Omayra Schuler PA-C PACKAGES & DNA PROBE ORDERABLES Performing Organization Address City/State/[facility] Co de Phone Number [facility] [address] [place] [address] * EKG 12-LEAD (06/18/2019 8:28 EST) 06/18/2019 8:28 EST Narrative [facility] EKG - 06/18/2019 14:05 EST ?[facility] Emergency ? Test Date: ?2019-06-18 Pat Name: ? CRISTY LUO ?Department: ?? ED ? Room: ? GT33 Gender: ? Female ? [employer]or [employer]: ?? [id number] : ?1985 ? Requested By: Reid OKEEFE Order Number: [id number] ? Reading MD: ?? FRAN LUCIANO SA MD ? Measurements Intervals ?[place] ? Rate: ? 94 ? P: ?51 NE: ? 138 ?QRS: ?8 QRSD: ? 88 ? T: ?1 QT: ? 335 ? QTc: ?421 ? Interpretive Statements SINUS RHYTHM Automated Interpretation. ??Provider Interpretation to follow. Compared to ECG 03/08/2016 16:14:31 Sinus tachycardia no longer present T-wave abnormality no longer present I reviewed the tracing and have either agreed or edited the findings in this report. Electronically Signed On 06-18-2019 14:05:54 EST by FRAN LUCIANO SA, MD. Procedure Note Fran Dowling Sa, MD - 06/18/[address] [facility] Emergency Test Date: 2019-06-18 Pat Name: CRISTY LUO Department: ED Room: [facility] Gender: Female [employer]: [id number] : [id number] Requested By: [facility] RANDI OKEEFE Order Number: [id number] Reading MD: FRAN GRAYSON Measurements Intervals [place] Rate: 94 P: 51 NE: 138 QRS: 8 QRSD: 88 T: 1 QT: 335 QTc: 421 Interpretive Statements SINUS RHYTHM Automated Interpretation. Provider Interpretation to follow. Compared to ECG 03/08/2016 16:14:31 Sinus tachycardia no longer present T-wave abnormality no longer present I reviewed the tracing and have either agreed or edited the findings inthis report. Electronically Signed On 06-18-2019 14:05:54 EST by FRAN PALACIOS SA, MD. Omayra Schuler PA-C CARDIAC ECG ORD ERABLES [facility] EKG documented in this encounter Visit Diagnoses Diagnosis Acute non-recurrent maxillary sinusitis- Primary Acute nonintractable headache, unspecified headache type Hyperglycemia Other abnormal glucose documented in this encounter Administered Medications Inactive Administered Medications - up to 3 most recent administrations Medication Order MAR Action Action Date Dose Rate Site lactated ringers BOLUS 1,000 mL 1,000 mL, intravenous, NOW X1, 1 dose, On 06/18/19 at 0900, STAT New Bag 06/18/2019 9:06 EST 1,000 mL documented in this encounter Discontinued Medications Medication Sig Discontinue Reason Start Date End Da te cyclobenzaprine (FLEXERIL) 5 mg tablet Take 2 Tabs by mouth 3 times daily. Therapy completed 11/01/2018 06/18/2019 folic acid (FOLVITE) 1 mg tablet Take 3 Tabs by mouth daily. Through first trimester Therapy completed 10/19/2018 06/18/2019 lidocaine 5 % (LIDODERM) 5 % patch To area of pain, apply for 12 hours on, then 12 hours off. Some insurance companies do not cover this medication. There is an eszv-umi-lrshwhd cream or an flqb-ybk-xtlqeoa patch with a lower concentration that is available. Please substitute this if your insurance company does not cover this m Therapy completed 11/01/2018 06/18/2019 VIT 91/IRON/FOLIC/DHA ( + DHA ORAL) Take by mouth. Therapy completed 06/18/19 20 documented as of this encounter Historical Medications * This list may reflect changes made after this encounter. Medication Sig Dispensed Refills Start Date End Date pseudoephedrine (SUDAFED) 30 mg tablet Take 60 mg by mouth every 4 hours. 10/01/2019 added in this encounter Active and Recently Administered Medications Times are shown in EST. Scheduled Medication Order 06/16/2019 06/17/2019 06/18/2019 lactated ringers BOLUS 1,000 mL (COMPLETED) 1,000 mL, intravenous, NOW X1, 1 dose, On 06/18/19 at 0900, STAT 0906 ([facility] ider: Judi Merrill RN) documented in this encounter Care Teams Medical Van Driver Relationship Specialty Start Date End Date None, Provider PCP - General 06/18/19 11/25/19 documented as of this encounter
--- OUTSIDE RECORDS SUMMARY | 2023-12-16 00:44 | XMS_ITS | Encounter Summary ---
Author Organization [facility] Address [address] [place] [address] Care Team Providers Care Senior Hris Analyst Name Role Phone None, Provider Primary Care Provider Unavailabl e Reason for Referral * TECHNOLOGY TRAINING ASSOCIATE (Routine) - Specialty Report Received Specialty Diagnoses / Procedures Referred By Contac t Referred To Contact Diagnoses of unknown anatomic location Procedures US OB FIRST TRIMESTER (LESS THAN 14 WEEKS) TRANSVAGINAL Charu Flynn MD [address] [place] [phone] Referral ID Status Reason Start Date Expiration Date V isits Requested Visits Authorized [id number] Specialty Report Received 09/03/2019 1 1 Reason for Visit * TECHNOLOGY TRAINING ASSOCIATE (Routine) - Specialty Report Received Specialty Diagnoses / Procedures Referred By Contac t Referred To Contact Diagnoses of unknown anatomic location Procedures US OB FIRST TRIMESTER (LESS THAN 14 WEEKS) TRANSVAGINAL Charu Flynn MD [address] [phone] Referral ID Status Reason Start Date Expiration Date V isits Requested Visits Authorized [id number] Specialty Report Received 09/03/2019 1 1 Encounter Details Date Type Department Care Team (Latest Contact Info) Description 09/05/2019 10:26 EDT - 09/06/2019 23:59 EDT Hospital Encounter [facility] Women's Services [address] [address] of unknown anatomic location Discharge Disposition: Home [...] Refills Start Date End Date blood glucose test strips One Touch Verio [...] mouth. 10/01/2019 documented as of this encounter Discharge Disposition Disposition Code Departure Means Destination Home or Self Care documented in this encounter Plan of Treatment Upcoming Encounters Date Type Department Care Team (Late st Contact Info) Description 02/21/2024 9:45 EDT Office Visit [facility] Adult Primary Care - [address] [phone] Carrington Calderon MD [address] [place] [phone] 02/27/2024 8:30 EDT Telemedicine [facility] Sleep Program - [address] [phone] Rn, Sleep 02/29/2024 10:30 EDT Appointment [facility] Radiology Nuclear Medicine and PET [address] [id number] 02/29/2024 14:30 EDT Appointment [facility] Radiology Nuclear Medicine and PET [address] [id number] 03/01/2024 8:00 EDT Appointment [facility] Radiology Nuclear Medicine and PET [address] [id number] 03/01/2024 9:30 EDT Appointment [facility] Radiology Nuclear Medicine and PET [address] [id number] documented as of this encounter Procedures Procedure Name Priority Date/Time Associated Diagnosis Comments US OB FIRST TRIMESTER (LESS THAN 14 WEEKS) TRANSVAGINAL Routine 09/05/2019 11:20 EDT of unknown anatomic location documented in this [...] Sufficient. Impression 1st Trimester OB scan ,transvaginal +[id number] Single intrauterine gestational sac and yolk sac. [...] Sufficient. Impression 1st Trimester OB scan ,transvaginal +[id number] Single intrauterine gestational sac and yolk sac. A pole cannot beclearly identified on today's examination. Follow-up follow up US in 2 weeks. Comment ========= Z34.8 encounter for supervision of other normal . Resultsdiscussed w/patient. DATE OF SERVICE: 09/05/2019 Charu Flynn MD [facility] OB ORDERA BLES documented in this encounter Visit Diagnoses Diagnosis of unknown anatomic location state, incidental documented in this encounter Care Teams Senior Hris Analyst Relationship Specialty Start Date End Date None, Provider PCP - General 06/18/19 11/25/19 documented as of this encounter
--- OUTSIDE RECORDS SUMMARY | 2023-12-16 00:44 | XMS_ITS | Encounter Summary ---
Author Organization [facility] Address [address] [place] [address] Care Team Providers Care Watch Dial Stoner Name Role Phone None, Provider Primary Care Provider Unavailabl e Reason for Visit * Reason Comments Procedure SARAH * Consult (3 - 10 Business Days) - Closed Specialty Diagnoses / Procedures Referred By Contac t Referred To Contact Diagnoses in first trimester Andrés Mcfarlane MD 111 [facility] 1 [place] [address] [facility] Ep4 Ob/Mfm [address] [place] [address] Referral ID Status Reason Start Date Expiration Date V isits Requested Visits Authorized [id number] Closed Specialty Services Required 10/11/2019 1 1 Encounter Details Date Type Department Care Team (Late st Contact Info) Description 10/12/2019 15:00 EDT Initial consult [facility] Women's Services - [address] [address] David Martínez MD 111 [facility] 4 [place] [address] Missed (Primary Dx) Social History Tobacco Use Types [...] 20:53 EDT documented as of this encounter Last Filed Vital Signs Vital Sign Reading Time Taken Comments Blood Pressure 110/72 10/12/2019 1512 EDT Pulse - - Temperature - - Respiratory Rate - - Oxygen Saturation - - Inhaled Oxygen Concentration - - Weight 88.5 kg (195 lb) 10/12/2019 1512 EDT Height 162.6 cm (5' 4) 10/12/2019 1512 EDT Body Mass Index 33.47 10/12/2019 1512 EDT [...] as of this encounter Progress Notes * David Martínez MD - 10/12/2019 1500 EDT This is a 34-year-old 8 para 0 currently 9 weeks and 4 days gestation based on early ultrasound dating. The patient presented to the emergency room yesterday with some bleeding and had ultrasound that showed an embryonic gestational sac. Given that she had previously had an ultrasound scan showing a viable embryo, yesterday's scan constitutes definitive evidence of failed . The patient was offered options for management and elected to do nothing for the time being. However she called in today asking for office termination. I reviewed the process with her including a discussion of its risks of bleeding infection and uterine perforation. We also discussed the alternatives of home treatment and management under anesthesiain the operating room. At the end of this discussion the patient was satisfied that her choice was to do an office procedure and she signed the consent. HPI: As above, this patient had early ultrasound imaging on 413 that put her at 6 weeks. She then returned for further evaluation yesterday. OB history: This patient reports a total of 7 another early losses. These are detailed inthe MFM note from September. Medical history: This patient has very significant type 2 diabetes with very poor control and hemoglobin A1c's that are typically 8-11. Otherwise she reports reasonably normal health. She is morbidlyobese. Surgical history: Patient reports no major surgeries. Exam: A pelvic exam on this patient was not attempted because of her morbid obesity. I did perform a bedside ultrasound with a transvaginal probe that showed a mid position uterus with a gestational sac and no apparent embryo present. Assessment: As per procedure note, her procedure was uncomplicated and follow-up ultrasound showed that the gestational sac and trophoblast tissue had been adequately removed from the uterus. Plan: The patient is Rh- but had RhoGam 3 days ago. In the setting of an embryonic and a recent RhoGam shot, repeat was deemed unnecessary. The patient was treated with a 200 mg one-time dose of doxycycline. She was provided with instructions for follow-up. Because the embryonic tissue had apparently been nonviable for many weeks, I did not send a chromosome analysis. The patient has instructions to call with any problems with bleeding infection or other concerns. documented in this encounter Procedure Notes * David Martínez MD - 10/12/2019 1500 EDT Procedure: Manual uterine evacuation Procedures: After review of procedure and informed consent, the patient was placed on the BURGLAR ALARM INSPECTOR exam table and a bedside ultrasound performed. This showed a midposition uterus with a empty gestational sac present. The approximate sac dimensions are 2 x 3 cm. Following this, a speculum was placed and the cervix was prepped with Betadine and a paracervical block with 1% lidocaine was placed. Then thecervix was easily dilated to 8 mm with Denniston dilators and an 8 mm cannula was used for manual evacuation. Following the evacuation procedure bleeding was noted to be minimal, and the ultrasound was repeated and now shows that the uterus is empty. There were no complications in the procedure andthe estimated blood loss was minimal. She was treated with doxycycline and Tylenol. No RhoGam shot was given. documented in this encounter Plan of Treatment Upcoming Encounters Date Type Department Care Team (Late st Contact Info) Description 02/21/2024 9:45 EDT Office Visit [facility] Adult Primary Care - [address] [address] Carrington Calderon MD [address] [place] [phone] 02/27/2024 8:30 EDT Telemedicine [facility] Sleep Program - [address] [phone] Rn, Sleep 02/29/2024 10:30 EDT Appointment [facility] Radiology Nuclear Medicine and PET - [address] [id number] 02/29/2024 14:30 EDT Appointment [facility] Radiology Nuclear Medicine and PET [address] [id number] 03/01/2024 8:00 EDT Appointment [facility] Radiology Nuclear Medicine and PET [address] [id number] 03/01/2024 9:30 EDT Appointment [facility] Radiology Nuclear Medicine and PET [address] [id number] documented as of this encounter Visit Diagnoses Diagnosis Missed - Primary documented in this encounter Care Teams Watch Dial Stoner Relationship Specialty Start Date End Date None, Provider PCP - General 06/18/19 11/25/19 documented as of this encounter
--- OUTSIDE RECORDS SUMMARY | 2023-12-16 00:44 | XMS_ITS | Encounter Summary ---
Author Organization [facility] Address [address] [place] [address] Care Team Providers Care Garbage Collector Driver Name Role Phone Benita Shafer RADIO INTERFERENCE TROUBLE SHOOTER Primary Care Provider [phone] Reason for Visit * Reason Comments Social Work Encounter Details Date Type Department Care Team (Late st Contact Info) Description 01/03/2019 Community Health Team [facility] Women's Services - [address] [address] Eryn Diaz Social History Tobacco Use Types [...] as of this encounter Progress Notes * Mirian Diazfer - 01/03/2019 1021 EDT Care coord with RN Susana Tomlinson re SW referral for pt. Disc pt needs / ways SW can offer support. Pt sometimes doesn't attend appts and SW was split between sites today, so SW called pt to see if she was planning to attend her appt at [address] Pierce Ojeda today. Spoke with pt who said she didn't know about the appt and said she has one 01/12 at 10:30. SW intro role and supports, and offered to tag onto appt, which pt agreed to. SW called pt back later in day however to inform her that her next sched [facility] appts are on 01/10 and03/02 (left vm). SW not avail 01/10, so enc pt to call or text SW to sched SW appt. SW will zandra pt asinactive for now. [facility] Total Time: 20 min total 5 min care coord 10 min via ph with pt 5 min charting Referral: n/a Follow up: pt to contact SW to sched SW appt Status: Inactive documented in this encounter Plan of Treatment Upcoming Encounters Date Type Department Care Team (Late st Contact Info) Description 02/21/2024 9:45 EDT Office Visit [facility] Adult Primary Care - [address] [phone] Carrington Calderon MD [address] [place] [address] 1 [place] [phone] 02/27/2024 8:30 EDT Telemedicine [facility] Sleep Program - [address] [phone] Rn, Sleep 02/29/2024 10:30 EDT Appointment [facility] Radiology Nuclear Medicine and PET - [address] [phone] 02/29/2024 14:30 EDT Appointment [facility] Radiology Nuclear Medicine and PET - [address] [phone] 03/01/2024 8:00 EDT Appointment [facility] Radiology Nuclear Medicine and PET - [address] [address] 03/01/2024 9:30 EDT Appointment [facility] Radiology Nuclear Medicine and PET - [address] [address] documented as of this encounter Visit Diagnoses Not on filedocumented in this encounter Care Teams Garbage Collector Driver Relationship Specialty Start Date End Date Benita Shafer NP PCP - General 08/22/18 06/17/19 documented as of this encounter
--- OUTSIDE RECORDS SUMMARY | 2023-12-16 00:44 | XMS_ITS | Encounter Summary ---
Author Organization [facility] Address [address] [place] [address] Care Team Providers Care Contracting Support Specialist Name Role Phone None, Provider Primary Care Provider Unavailabl e Encounter Details Date Type Department Care Team (Latest Contact Info) Description 09/05/2019 Travel Social History Tobacco Use Types Packs/Day [...] [facility] Adult Primary Care - [address] [phone] Carrington Calderon MD [address] [phone] 02/27/2024 8:30 EDT Telemedicine [facility] Sleep Program - [address] [address] Rn, Sleep 02/29/2024 10:30 EDT [facility] [address] [id number] 02/29/2024 14:30 EDT Appointment [facility] Radiology Nuclear Medicine and PET [address] [phone] 03/01/2024 8:00 EDT Appointment [facility] Radiology Nuclear Medicine and PET [address] [id number] 03/01/2024 9:30 EDT Appointment [facility] Radiology Nuclear Medicine and PET [address] [phone] documented as of this encounter Visit Diagnoses Not on filedocumented in this encounter Care Teams Contracting Support Specialist Relationship Specialty Start Date End Date None, Provider PCP - General 06/18/19 11/25/19 documented as of this encounter
--- OUTSIDE RECORDS SUMMARY | 2023-12-16 00:44 | XMS_ITS | Encounter Summary ---
Author Organization [facility] Address [address] [place] [address] Care Team Providers Care Handle Finisher Name Role Phone None, Provider Primary Care Provider Unavailabl e Reason for Visit * GEOPHYSICAL OPERATOR (Routine) - Order Cancelled Specialty Diagnoses / Procedures Referred By Contac t Referred To Contact Diagnoses Less than 8 weeks gestation of Procedures US OB FIRST TRIMESTER (LESS THAN 14 WEEKS) TRANSVAGINAL Jonas Ojeda MD [address] [place] [address] [phone] Referral ID Status Reason Start Date Expiration Date V isits Requested Visits Authorized [id number] Order Cancelled 09/05/2019 1 1 Encounter Details Date Type Department Care Team (Latest Contact Info) Description 09/17/2019 9:09 EDT - 09/18/2019 23:59 EDT Hospital Encounter [facility] Women[facility] Services - [address] [phone] Less than 8 weeks gestation of Discharge Disposition: Home or Self Care Social [...] Info) Description 02/21/2024 9:45 EDT Office Visit [facility] Adult Primary Care - [address] [address] Carrington Calderon MD [address] [phone] 02/27/2024 8:30 EDT Telemedicine [facility] Sleep Program - [address] [phone] Rn, Sleep 02/29/2024 10:30 ED[facility] - [address] [id number] 02/29/2024 14:30 EDT Appointment [facility] Radiology Nuclear Medicine and PET [address] [phone] 03/01/2024 8:00 EDT Appointment [facility] Radiology Nuclear Medicine and PET [address] [phone] 03/01/2024 9:30 EDT Appointment [facility] Radiology Nuclear Medicine and PET [address] [phone] documented as of this encounter Procedures Procedure Name Priority Date/Time Associated Diagnosis Comments US OB LIMITED Routine 09/17/2019 9:33 EDT Less than 8 weeks gestation of documented in this encounter Results * US OB LIMITED (09/17/2019 9:33 EDT) Anatomical Region Laterality Modality Pelvis Ultrasound 09/17/2019 9:25 EDT Addenda Addendum by Cielo Duggan MD on 09/17/2019 11:02 EDT History ======= Previous Outcomes ?6 Para ?? 0 Hopkins children born (T) ?0 Hopkins children born (P) ?0 Abortions (A) ??5 Hopkins living children (L) ??0 Number of gestational sacs: 1. Dating ======= LMP on: ?07/20/2019 GA by LMP ??8 w + 3 d IVAN by LMP : ? 04/25/2020 Method of dating: ??based on ultrasound Ultrasound examination on: 09/17/2019 GA by U/S based upon: ??CRL GA by U/S ??6 w + 0 d IVAN by U/S: ?05/12/2020 Previous dating: ?? Dating performed on 09/05/2019 Based on the LMP Assigned GA of previous dating 8 w + 0 d Agreed IVAN of previous datin04/28/2020 Assigned: ??Dating performed on 09/17/2019, based on ultrasound (CRL) Assigned GA ?6 w + 0 d Assigned IVAN: ??05/12/2020 Assessment Gestational sac: ?? Visualized Location: ??Intrauterine Yolk sac: ??Visualized Amniotic sac: ??Uncertain Embryo: ?Visualized CRL ?3.8 mm ??5% 6w 0d Hadlock Cardiac activity: ??Present FHR ?105 bpm Maternal Structures Ovaries / Tubes / Adnexa Rt ovary: ??Visualized, normal appearance Rt ovary morphology: ?? Normal Lt ovary: ??Visualized Lt ovary morphology: ?? normal physiologic changes Lt ovarian corpus luteum: ??collapsed Impression OB Transvaginal - [address] Hopkins viable intrauterine with dating to be based on ultrasound, as above for dating. Follow-up Establish OB care. Comment ========= Results discussed with patient. DATE OF SERVICE: 09/17/2019 Narrative 09/17/2019 9:51 EDT History ======= Previous Outcomes ?6 Para ?? 0 Hopkins children born (T) ?0 Hopkins children born (P) ?0 Abortions (A) ??5 Hopkins living children (L) ??0 Number of gestational sacs: 1. Dating ======= LMP on: ?07/20/2019 GA by LMP ??8 w + 3 d IVAN by LMP : ? 04/25/2020 Method of dating: ??based on ultrasound Ultrasound examination on: 09/17/2019 GA by U/S based upon: ??CRL GA by U/S ??6 w + 0 d IVAN by U/S: ?05/12/2020 Previous dating: ?? Dating performed on 09/05/2019 Based on the LMP Assigned GA of previous dating 8 w + 0 d Agreed IVAN of previous datin04/28/2020 Assigned: ??Dating performed on 09/17/2019, based on ultrasound (CRL) Assigned GA ?6 w + 0 d Assigned IVAN: ??05/12/2020 Assessment Gestational sac: ?? Visualized Location: ??Intrauterine Yolk sac: ??Visualized Amniotic sac: ??Uncertain Embryo: ?Visualized CRL ?3.8 mm ??5% 6w 0d [place] Cardiac activity: ??Present FHR ?105 bpm Maternal Structures Ovaries / Tubes / Adnexa Rt ovary: ??Visualized, normal appearance Rt ovary morphology: ?? Normal Lt ovary: ??Visualized Lt ovary morphology: ?? normal physiologic changes Lt ovarian corpus luteum: ??collapsed Impression OB Transvaginal - [address] Hopkins viable intrauterine with dating to be based on ultrasound, as above for dating. Follow-up Establish OB care. Comment ========= Results discussed with patient. DATE OF SERVICE: 09/17/2019 Procedure Note Cielo Duggan MD - 09/17/2019 History ======= Previous Outcomes 6 Para 0 Hopkins children born (T) 0 Hopkins children born (P) 0 Abortions (A) 5 Hopkins living children (L) 0 Number of gestational sacs: 1. Dating ======= LMP on: 07/20/2019 GA by LMP 8 w + 3 d IVAN by LMP : 04/25/2020 Method of dating: based on ultrasound Ultrasound examination on: 09/17/2019 GA by U/S based upon: CRL GA by U/S 6 w + 0 d IVAN by U/S: 05/12/2020 Previous dating: Dating performed on 09/05/2019 Based on the LMP Assigned GA of previous dating 8 w + 0 d Agreed IVAN of previous datin04/28/2020 Assigned: Dating performed on 09/17/2019, based on ultrasound (CRL) Assigned GA 6 w + 0 d Assigned IVAN: 05/12/2020 Assessment Gestational sac: Visualized Location: Intrauterine Yolk sac: Visualized Amniotic sac: Uncertain Embryo: Visualized CRL 3.8 mm 5% 6w 0d [place]lock Cardiac activity: Present FHR 105 bpm Maternal Structures Ovaries / Tubes / Adnexa Rt ovary: Visualized, normal appearance Rt ovary morphology: Normal Lt ovary: Visualized Lt ovary morphology: normal physiologic changes Lt ovarian corpus luteum: collapsed Impression OB Transvaginal - 12583 Hopkins viable intrauterine with dating to be based onultrasound, as above for dating. Follow-up Establish OB care. Comment ========= Results discussed with patient. DATE OF SERVICE: 09/17/2019 Jonas Ojeda MD [facility] OB ORDERABLES documented in this encounter Visit Diagnoses Diagnosis Less than 8 weeks gestation of state, incidental documented in this encounter Care Teams Handle Finisher Relationship Specialty Start Date End Date None, Provider PCP - General 06/18/19 11/25/19 documented as of this encounter
--- OUTSIDE RECORDS SUMMARY | 2023-12-16 00:44 | XMS_ITS | Encounter Summary ---
Author Organization [facility] Address [address] [place] [address] Care Team Providers Care Railway Switch Operator Name Role Phone None, Provider Primary Care Provider Unavailabl e Reason for Visit * Reason Onset Date Comments Appointment Related 10/12/2019 Encounter Details Date Type Department Care Team (Late st Contact Info) Description 10/12/2019 Telephone [facility] Women's Services [facility] [address] [place] [address] Karoline Wolfe, MARCELO Appointment Related Social History Tobacco Use Types [...] as of this encounter Miscellaneous Notes * Addendum Note - Karoline Wolfe RN - 10/18/2019 1117 EDTAddended by: KAROLINE WOLFE on: 10/18/2019 11:17 Modules accepted: Orders * Telephone Encounter - Karoline Wolfe RN - 10/12/2019 1131 EDT Call to patient. I spoke to patient. manager studio Mary Hurtado and Dr. Martínez approve if patient has her mother(Doris Kirby) with her for her appointment today. Advised that both patient and mother wear cough mask. Notified that they will be screened at the entrance. I will call security ahead of time to let them know. Patient states mother has been staying with her and has been practicing social distancing i.e. staying home. Denies having respiratory symptoms or being tested for COVID 19 documented in this encounter Plan of Treatment Upcoming Encounters Date Type Department Care Team (Late st Contact Info) Description 02/21/2024 9:45 EDT Office Visit [facility] Adult Primary Care - [address] [phone] Carrington Calderon MD 1 [facility] 1 [place] [phone] 02/27/2024 8:30 EDT Telemedicine [facility] Sleep Program - [address] [phone] Rn, Sleep 02/29/2024 10:30 EDT Appointment [facility] Radiology Nuclear Medicine and PET - [address] [phone] 02/29/2024 14:30 EDT Appointment [facility] Radiology Nuclear Medicine and PET - [address] [address] 03/01/2024 8:[address] [facility] Radiology Nuclear Medicine and PET - [address] [address] 03/01/2024 9:30 EDT Appointment [facility] Radiology Nuclear Medicine and PET - [address] [address] documented as of this encounter Visit Diagnoses Diagnosis Recurrent loss- Primary documented in this encounter Care Teams Railway Switch Operator Relationship Specialty Start Date End Date None, Provider PCP - General 06/18/19 11/25/19 documented as of this encounter
--- OUTSIDE RECORDS SUMMARY | 2023-12-16 00:44 | XMS_ITS | Encounter Summary ---
Author Organization [facility] Address [address] [place] [address] Care Team Providers Care Janitor Cleaner Name Role Phone None, Provider Primary Care Provider Unavailabl e Reason for Referral * Consult (3 - 10 Business Days) - Closed Specialty Diagnoses / Procedures Referred By Contac t Referred To Contact Diagnoses in first trimester Andrés Mcfarlane MD [address] [facility], Level [address] [place] [address] [facility] Ep4 Ob/Mfm [address] [place] [address] Referral ID Status Reason Start Date Expiration Date V isits Requested Visits Authorized [id number] Closed Specialty Services Required 10/11/2019 1 1 Question Answer Reason for Request: Failed Reason for Visit * Reason Comments Vaginal Bleeding see tcall. Ambulator y into triage, 9.5wks , last night started with bright red bleeding I've changed the panty liner a few times since last night. Followed by [facility] campus aide highrisk. Intermittent cramping. Hx 6 miscarriages. Encounter Details Date Type Department Care Team (Late st Contact Info) Description 10/11/2019 20:54 EDT - 10/12/2019 0:13 EDT Emergency [facility] Emergency Department - [address] [address] Kylah Whitaker PA-C [address] [facility], [facility] 1 [place] [address] Alessandro Delgadillo MD [address] [facility], [facility] 1 [place] [address] in first trimester (Primary Dx) Discharge Disposition: Home or Self [...] Sign Reading Time Taken Comments Blood Pressure 102/63 10/11/20192200 EDT Pulse 120 10/11/20192051 EDT Temperature 36.5 ??C (97.7 ??F) 10/11/20192051 EDT Respiratory Rate 18 10/11/20192051 EDT Oxygen Saturation 100% 10/11/20192200 EDT Inhaled Oxygen Concentration - - Weight 88.5 kg (195 lb) 10/11/20192051 EDT Height 162.6 cm (5' 4) 10/11/20192051 EDT Body Mass Index 33.47 10/11/20192051 EDT documented in this encounter Functional Status [...] encounter Discharge Instructions * Discharge Instructions* Andrés Mcfarlane MD - 10/11/2019 23:55 EDT Thank you for coming to the ED at [facility] for your medical care. Whenever we see you in the emergency department we are getting a snapshot of your medical condition. Things can change and even small changes might alter how we care for you. If your symptoms change in a way that concerns you or makes you unsure, please return for re-evaluation. We are here 24 hours a day, every day of the year, so donot hesitate to return. 1) You were seen for vaginal bleeding. Unfortunately it was determined that the cause of your bleeding is a failed . 2) Please follow-up with DIRECTOR SHIP. They should call you within 48 hours to make an appointment however if they do not, please call them. 3) Please return to the emergency room if you develop any new or worsening symptoms. Specifically if you develop heavy bleeding, feel lightheaded, feel weak, having shortness of breath, fevers, chills, or any other concerning symptom. documented in this encounter Medications at Time of Discharge Medication Sig Dispensed Refills Start Date End Date blood glucose meter One Touch Verio Flex meter. 1 Each 10/04/2019 12/21/2021 blood glucose test strips One Touch Verio IQ or other brand compatible with meter and covered by patient's insurance. Testing QID. 100 Each 5 10/01/2019 08/11/2020 folic acid (FOLVITE) 1 mg [...] 10/01/2020 metFORMIN (GLUCOPHAGE) 500 mg tablet Take 1,000 mg by mouth daily. 11/26/2019 documented as of this encounter Discharge Disposition Disposition Code Departure Means Destination Home or Self Custodial documented in this encounter Consult Notes * Elise Larson MD - 10/11/2019 5608 EDT Department of Gynecology History & Physical CC: Pt is a 34 y.o. at 9w3d by first trimester ultrasound with vaginal spotting Subjective: Cristy is a at 9w3d by 6w U/S with history of interstitial in 2017 s/p MTX andrecurrent loss 2/2 poor glycemic control and morbid obesity presents today for vaginal spotting x 24 hours. Last ultrasound was on 09/16, which showed IUP measuring at 6w0d (while LMP datingwould have been 8w3d). S/p Rhogam on 09/22 for spotting in the setting of her RH negative status. In regards to her spotting, Cristy reports that she was wearing a pantyliner that required change 3-4 times through the day, never saturated or requiring thicker pads. Did not resolve. Accompaniedby mild cramping. In the ED, TVUS performed that shows nonviable - empty gestational sac.She has been hemodynamically stable with Hct at 41.9 but has had runs of tachycardia (max HR of 120). Her antibody screen is appropriately positive s/p Rhogam. Her history is notable for: 1. Recurrent loss: S/p EDIS consult. Advised to optimize glycemic control and have a sonohysterogram to evaluate cavity. 2. T2DM: Poorly controlled. Last A1c 10/2018 was 10.9. Hasn't seen an endocrinology in a year due toinsurance issues. Takes Metformin 500 BID + Lantus 15u qHS. Denies renal or thyroid disease. No cHTN. 3. Anxiety and Depression: Uses marijuana PRN. Hx of citalopram (3 suicide attempts while on meds);no current mood issues. 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 PMedHx: Past Medical History: Diagnosis Date ??? Depression ??? Diabetes mellitus (HCC-CMS) ??? Migraine, unspecified, without mention of intractable migraine without mention of status migrainosus ??? Obesity, unspecified ??? Rh negative state in antepartum period ??? Spontaneous miscarriage 09/04/201502/18, 08/19. Followed by Dr. López/[facility] in OBGYN PSurgx: Past Surgical History: Procedure Laterality Date ??? [...] to Encounter Medication Sig Dispense Refill ??? blood glucose [...] tablet Take 1,000 mg by mouth daily. Allergies: Allergies Allergen Reactions ??? Citalopram Other [...] resource strain: Not on file ??? Food insecurity: Worry: Not on file Inability: Not on file ??? Transportation needs: Medical: Not on file Non-medical: Not on file Tobacco Use ??? Smoking status: Current Every Day Smoker Packs/day: 0.25 Years: 8.00 Pack years: 2.00 Types: Cigarettes Start date: 11/10/2010 ??? Smokeless tobacco: Never Used Substance and Sexual Activity ??? Alcohol use: Not Currently Alcohol/week: 0.0 standard drinks Frequency: Monthly or less Drinks per session: 1 or 2 Binge frequency: Never Comment: very rare ??? Drug use: Not Currently Types: Marijuana Comment: 1X/DAY FOR ANXIETY ??? Sexual activity: Yes Partners: Male Lifestyle ??? Physical activity: Days per week: Not on file Minutes per session: Not on file ??? Stress: Not on file Relationships ??? Social connections: Talks on phone: Not on file Gets together: Not on file Attends zoroastrianism service: Not on file Active member of club or organization: Not on file Attends meetings of clubs or organizations: Not on file Relationship status: Not on file ??? Intimate partner violence: Fear of current or ex partner: Not [...] Grandmother ??? Diabetes Paternal Grandfather Objective: Vitals: 10/11/19205110/11/19 2100 10/11/19 2201 BP: 126/77 125/59 102/63 Pulse: (!) 120 Resp: 18 Temp: 36.5 ??C (97.7 ??F) SpO2: 100% 100% 100% Weight: 88.5 kg (195 lb) Height: 162.6 cm (64) Body mass index is 33.47 kg/m??. Gen: NAD Psych: AAOx3 CV: Tachycardic Lungs: CTAB Abd: soft, NT, ND +BS Ext: NT, WWP, no edema PE: Deferred. Labs: CBC: Recent Labs 10/11/199 WBC 17.66* RBC 4.70 HGB 14.4 HCT 41.9 MCV 89 MCH 30.6 MCHC 34.4 PLT 443* NEUTROABS 9.29* Imaging: US OB FIRST TRIMESTER (LESS THAN 14 WEEKS) TRANSVAGINAL 10/11/2019 10:10 PM ?? SIGNS AND SYMPTOMS/COMMENTS: bleeding, 9 weeks ?? COMPARISON: OB ultrasound and 09/05/2019 ?? TECHNIQUE: Grayscale and color/spectral Doppler ultrasound of the pelvis was performed. ?? MATERNAL STRUCTURES: ?? Uterus: The anteverted uterus measures approximately 7.4 x 6.0 x 4.1 cm cm in size. ?? Fluid collections within uterus: There is a fluid collection within the uterus measuring 2.2 x 3.4 x 1.4 cm composed of anechoic fluid. ?? Right ovary: The right ovary measures 2.6 x 1.2 x 1.2 cm in size, for an estimated right ovarian volume of 2.0 mL. A venous Doppler waveform is identified in the right ovary, without a convincing arterial waveform. There is no asymmetric enlargement of the right ovary, surrounding fluid, or focal mass to serve as a lead point. ?? Left ovary: The left ovary measures 3.9 x 1.7 x 1.6 cm in size, for an estimated left ovarian volume of 5.7 mL. Arterial and venous Doppler waveforms and color flow are present in the left ovary. There is a thick-walled 7 x 4 x 7 mm hypoechoic structure in the left ovary, favored to reflect a corpus luteum. ?? Other adnexal masses: None. ?? Free fluid: None. ?? A nabothian cyst is incidentally noted within the cervix. ?? BIOMETRY/MEASUREMENTS: ?? Last menstrual period: Per discussion with the nurse's aides teacher, patient is unsure. Per the most recent OB examination, last menstrual period is reported as 07/20/2019, gestational age is therefore 12 weeks zero days by LMP. ?? Prior ultrasound dating: Gestational age today is 11 weeks 3 days by prior ultrasound dating ?? No pole or yolk sac is identified. ?? IMPRESSION 1. No pole identified in this patient with prior ultrasound showing a gestational sac with a yolk sac 24 days prior. Findings are diagnostic of failure. ?? These findings were discussed with ANDRÉS MCFARLANE by Dr. Magnus Doll at 10/11/2019 11:17 PM. ?? Reference: Ismael Ramsey et al. Diagnostic criteria for nonviable early in the first trimester. [employer] Journal of Medicine 369.15 (2013): 3978-0960. ?? Assessment: Pt is a 34 y.o. at 9w4d by 6w ultrasound with new diagnosis of missed - no pole visualized today with known prior IUP. Bleeding scant. Hct stable at 41. Plan: We reviewed that at this time, it is safe to discuss three management options for missed -expectant, medical, or surgical. 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 She is not interested in expectant or medical management. Regarding surgical management, we discussed the option of an MVA under conscious sedation in the ED; MVA in clinic; or a D&C in the operating room. She declined a procedure tonight, which is reasonable given her clinical stability. She is undecided on pursuing a clinic procedure [facility] We discussed that if she wants a D&C in the main OR, she will have to be conscious of her NPO status tomorrow for an add on procedure. Alternatively, we can schedule her procedure for Tue. She confirms understanding. Will plan to let [facility] team and clinic staff know about our discussion. Cristy was advised to callclinic tomorrow if she has reached a decision prior to hearing from our team. She should also call us back tonight if she has increased discomfort or heavy bleeding. We do anticipate that if she wereto spontaneously abort the , there would be heavy bleeding with resolution. She knows to call with any questions or concerns. Patient seen and discussed with Dr. Lund. Elise Larson MD PGY-3, DIRECTOR SHIP Pager [phone] 10/12/2019 1:22 Associated attestation - Mayra Lund MD - 10/12/2019 3122 EDT Attestation: I saw and examined the patient 10/12/2019. I agree with the resident's/fellow's findingsand plans as documented except as noted here. In sum, patient is a 34-year-old -0-7-0 at 9 weeks 4 days x 6-week ultrasound with new diagnosis of missed in the setting of known prior IUP. Unfortunately she has had 6 prior first trimester miscarriages. On evaluation she has minimal bleeding and is comfortable. We reviewed expectant, medical and surgical management of missed . She is most comfortable with a procedure but following counseling remains undecided if she would like this to take place under sedation in the clinic or with D&C in the operating room. She declined a procedure in the emergency department, which is reasonable given her clinical stability and minimal bleeding. Of note she is Rh+ and received RhoGam for spotting last week. Messages were sent to clinic staff to follow-up with the patient andarrange for procedure scheduling. Instructions and precautions were reviewed as above and contact information was reviewed. She was subsequently discharged home from the emergency department in good condition. Mayra Lund MD PhD MFM Fellow, PGY5 Pager #[phone] Mayra Lund MD 10/12/2019 7:55 documented in this encounter ED Notes * Ann Giang RN - 10/12/2019 0012 EDT Ordered for discharge. Aftercare instructions, follow up, s/s to return reviewed with pt. IV removed, VSS, ambulatory upon discharge. * Ann Giang RN - 10/11/2019 2232 EDT Ultrasound at bedside. * Alessandro Delgadillo MD - 10/11/2019 2217 EDT This patient received an evaluation and medical screening exam for emergent medical conditions at the [facility] on 10/11/2019. This note was created and authored by ANDRÉS MCFARLANE MD working under the supervision of Alessandro Delgadillo MD. CINTHYA Luo is a 34 y.o. female with a history significant for 6 miscarriages who presents tot ED for vaginal bleeding in the setting of being about 10 weeks . Patient states she noticed some spotting last night however has had continued heavy bleeding throughout the day so decidedto present here. Patient denies any other symptoms such as chest pain, shortness of breath, fevers,chills, nausea, vomiting, or abdominal pain. Patient called the on-call DIRECTOR SH[facility] and they instructed her to come here to get a CBC, type and screen, beta quant, and a transvaginal ultrasound. On presentation patient is comfortable however appears anxious. She states that she has had 6 previous miscarriages and this is her and her 's last attempt. She also states that she got RhoGama couple weeks ago and she is Rh negative. History was provided by: Patient and medical record Patient's pertinent PMH, FH, SH were reviewed and updated PRN. ROS A 10-point review of systems was performed. The patient answered negative to all questions with theexceptions of those explicitly detailed as positives in the HPI. Pertinent negatives are also explicitly stated. Physical Exam Vital Signs Temp: 36.5 ??C (97.7 ??F) Pulse: (!) 120 Resp: 18 SpO2: 100 % BP: 126/77 O2 Device: None (Room air) Nursing notes an vital signs were reviewed. Constitutional: Well appearing, in no acute distress HEENT: clear conjunctivae Mouth: Moist oral mucosa without apparent lesions Neck: Full ROM Heart: Warm and well perfused Lungs: No increased work of breathing, no respiratory distress Abdomen: Soft NT/ND Skin: No overt rashes or lesions on exposed skin Extremities: Moving spontaneously, warm Neuro: CN grossly intact, normal speech, gait wnl : Normal female external genitalia, speculum exam demonstrated a closed office with bloody mucus discharge Medical Decision Making/ED Course Cristy Luo is a 34 y.o. female with history significant for 6 miscarriages who presents to the ED for vaginal bleeding during the first trimester . Patient has has a history of miscarriages and now presents with a threatened , on my speculum exam no signs of parts and the os is closed. Bedside ultrasound demonstrated a yolk sac however unable to visualize the itself. Plan to follow DIRECTOR SHIP recommendations with CBC, type and screen, beta quant, transvaginalultrasound. Will consult DIRECTOR SHIP with the results and asked further direction. An EKG was obtained and independenly interpreted: NA Laboratory results independently reviewed, significant for: Quant beta 2954, leukocytosis of 17.66, antibody screen positive Imaging obtained was reviewed and independently interpreted: Transvaginal ultrasound demonstrated a failed intrauterine DIRECTOR SHIP was consulted when I was informed of patient failed demonstrated on transvaginal ultrasound. They came down and evaluated patient at bedside. They agree to follow-up with patient tomorrow morning and states she can be discharged home today. No need for Rhogam as patient is antibodypositive. Patient remained stable and was discharged home with instructions to come back to the emergency room if he develops any new or worsening symptoms such as worse vaginal bleeding, symptomaticanemia, fever, chest pain, shortness of breath, or any other concerning symptoms. Patient expressedunderstanding. Procedures Procedures ED Attending's Supervisory Statement IElie Skyler A, MD, performed a history and exam of this patient and discussed the case with the resident. I have reviewed and edited this note, and the documentation is consistent with my findings, assessment, and plan. I fully participated in the medical decision making. I, Sangita Goldstein, am scribing for Alessandro Delgadillo MD while he/she is personally performing the service. Sangita Goldstein 10/11/2019 23:30 I performed a history and exam of this patient and discussed the case with the resident. I reviewedthis individual's note and I concur with the documented findings and plan of care except as documented differently. ROS as per resident chart. Cristy Luo is a 34 y.o. female with a history of 6 miscarriages who presents to the ED for vaginal bleeding. She is currently 9.5 weeks . Upon my evaluation the patient endorses nauseaand a headache has spotting. She has no fevers, or significant abdominal pain Exam: Patient Vitals for the past 24 hrs: BP Temp Pulse Resp SpO2 Height Weight 10/11/192051 126/77 36.5 ??C (97.7 ??F) (!) 120 18 100 % 162.6 cm (64) 88.5 kg (195 lb) Nursing notes and vital signs were reviewed. She is in no distress, well-appearing The patient's beside physical exam was significant for abdomen soft, non-tender. No respiratory distress, normal pulses Labs, Imaging reviewed See above for details. MDM: Cristy Luo is a 34 y.o. female a failed based on ultrasound, history. DIRECTOR SHIP was consulted who thought that she could be discharged home for definitive management in the clinic or ORtomorrow with D&C or medical expulsion therapy. Patient is very comfortable with this plan, herlabs are reassuring. She was discharged in stable condition with close OB follow-up; the RhoGam is l ikely still active from her last one as antibodies are noted ED Course: (4276) I evaluated the patient. Wine Maker was at bedside discussing the results of the imaging with the patient. They discussed the plan to follow up with her in the clinic tomorrow. This documentation is recorded by Sangita Goldstein acting as Scribe under the direction and presence of Alessandro Delgadillo MD. Alessandro Delgadillo MD: I personally performed the services recorded by the scribe in my presence. I confirm the scribe's documentation has been reviewed by me to accurately and completely record my work, treatment, procedures, and medical decision making. Clinical Impression Final diagnoses: None Disposition Upon departure from the Emergency Department, the patient's pain seemed to be 0 on a zero to ten scale. Condition at departure from the Emergency Department: Stable Disposition decisions were made weighing risks and benefits of hospitalization vs. outpatient treatment, the risk for further decompensation, and the patient's wishes. Discharged * Cedric Petersen - 10/11/20192045 EDT TCALL: Cristy Luo [birth year] OB in L&D refers pt to e.d for eval. CC: 9.5 wks , 1 day of bright red spotting. Hx of 6 miscarriages. RH neg, got Rhogam last week. Needs transvaginal ultrasound, HCG. (GMD) documented in this encounter Plan of Treatment Upcoming Encounters Date Type Department Care Team (Late st Contact Info) Description 02/21/2024 9:45 EDT Office Visit [facility] Adult Primary Care [address] [address] Carrington Calderon MD 1 [facility] 1 [place] [id number] 02/27/2024 8:30 EDT Telemedicine [facility] Sleep Program - [address] [address] Rn, Sleep 02/29/2024 10:30 EDT Appointment [facility] Radiology Nuclear Medicine and PET - [address] [address] 02/29/2024 14:30 EDT Appointment [facility] Radiology Nuclear Medicine and PET [address] [address] 03/01/2024 8:00 EDT Appointment [facility] Radiology Nuclear Medicine and PET [address] [phone] 03/01/2024 9:30 EDT Appointment [facility] Radiology Nuclear Medicine and PET [address] [phone] Pending Results Name Type Priority Associated Diagnoses Date /Time POCT US ED ABDOMEN Imaging STAT 2019 21:27 EDT Scheduled Orders Name Type Priority Associated Diagnoses Orde r Schedule POCT US ED ABDOMEN Imaging STAT One Ti me for 1 Occurrences starting 10/11/2019 until 10/11/2019 Scheduled Referrals Name Type Priority Associated Diagnoses Order Schedule AMB CONS/FOLLOW UP OBSTETRICS Outpatient Referral Routine in first trimester Ordered: 10/11/2019 documented as of this encounter Procedures Procedure Name Priority Date/Time Associated Diagnosis Comments US OB FIRST TRIMESTER (LESS THAN 14 WEEKS) TRANSVAGINAL STAT 10/11/2019 22:49 EDT PATH REVIEW - HEMATOLOGY Today 10/11/2019 21:09 EDT DIFFERENTIAL, AUTOMATED MANUAL Today 10/11/2019 21:09 EDT HOLD SST STAT 10/11/2019 21:09 EDT HOLD LAVENDER TOP STAT 10/11/2019 21: 09 EDT HOLD GREEN TOP STAT 10/11/2019 21:09 EDT HOLD BLUE TOP STAT 10/11/2019 21:09 EDT ANTIBODY IDENTIFICATION Today 10/11/2019 21:09 EDT COMPLETE BLOOD COUNT AND DIFFERENTIAL STAT Add-on 10/11/2019 21:09 EDT BLOOD BANK HOLD STAT 10/11/2019 21:09 EDT TYPE AND SCREEN Today 10/11/2019 21:09 EDT QUANT BETA HCG, STAT Add-on 10/11/2019 21:09 EDT documented in this encounter Results * US OB FIRST TRIMESTER (LESS THAN 14 WEEKS) TRANSVAGINAL (10/11/2019 22:49 EDT) Anatomical Region Laterality Modality Pelvis Ultrasound 10/12/2019 8:11 EDT Impressions 10/12/2019 8:11 EDT No pole identified in this patient with prior ultrasound showing a gestational sac with a yolk sac 24 days prior. Findings are diagnostic of failure. These findings were discussed with ANDRÉS MCFARLANE MD by Dr. Magnus Doll at 10/11/2019 11:17 PM. Reference: Ismael Ramsey, et al. Diagnostic criteria for nonviable early in the first trimester. [employer] Journal of Medicine 369.15 (2013): 3790-3556. I have personally reviewed the images and the above interpretation and agree with the findings. Narrative 10/12/2019 8:11 EDT US OB FIRST TRIMESTER (LESS THAN 14 WEEKS) TRANSVAGINAL ??10/11/2019 10:10 PM SIGNS AND SYMPTOMS/COMMENTS: ??bleeding, 9 weeks COMPARISON: OB ultrasound and 09/05/2019 TECHNIQUE: Grayscale and color/spectral Doppler transabdominal and transvaginal ultrasound of the pelvis was performed. MATERNAL STRUCTURES: Uterus: The anteverted uterus measures approximately 7.4 x 6.0 x 4.1 cm cm in size. Fluid collections within uterus: There is a fluid collection within the uterus measuring 2.2 x 3.4 x 1.4 cm composed of anechoic fluid. Right ovary: The right ovary measures 2.6 x 1.2 x 1.2 cm in size, for an estimated right ovarian volume of 2.0 mL. A venous Doppler waveform is identified in the right ovary, without a convincing arterial waveform. There is no asymmetric enlargement of the right ovary, surrounding fluid, or focal mass to serve as a lead point. Left ovary: The left ovary measures 3.9 x 1.7 x 1.6 cm in size, for an estimated left ovarian volume of 5.7 mL. Arterial and venous Doppler waveforms and color flow are present in the left ovary. There is a thick-walled 7 x 4 x 7 mm hypoechoic structure in the left ovary, favored to reflect a corpus luteum. Other adnexal masses: None. Free fluid: None. Cervix: A nabothian cyst is incidentally noted within the cervix. Fluid is present within the cervical cavity. BIOMETRY/MEASUREMENTS: Last menstrual period: Per discussion with the nurse's aides teacher, patient is unsure. Per the most recent OB examination, last menstrual period is reported as 07/20/2019, gestational age is therefore 12 weeks zero days by LMP. Prior ultrasound dating: Gestational age today is 11 weeks 3 days by prior ultrasound dating No definite pole or yolk sac is identified within the gestational sac. Thin internal septation is present within the gestational sac. Echogenic focus measuring 2 mm along the anterior aspect of the gestational sac does not demonstrate motion and is favored to represent minimal debris. Procedure Note Zac Benjamin MD - 10/12/2019 US OB FIRST TRIMESTER (LESS THAN 14 WEEKS) TRANSVAGINAL 10/11/2019 10:10PM SIGNS AND SYMPTOMS/COMMENTS: bleeding, 9 weeks COMPARISON: OB ultrasound and 09/05/2019 TECHNIQUE: Grayscale and color/spectral Doppler transabdominal andtransvaginal ultrasound of the pelvis was performed. MATERNAL STRUCTURES: Uterus: The anteverted uterus measures approximately 7.4 x 6.0 x 4.1 cm cmin size. Fluid collections within uterus: There is a fluid collection within theuterus measuring 2.2 x 3.4 x 1.4 cm composed of anechoic fluid. Right ovary: The right ovary measures 2.6 x 1.2 x 1.2 cm in size, for anestimated right ovarian volume of 2.0 mL. A venous Doppler waveform isidentified in the right ovary, without a convincing arterial waveform.There is no asymmetric enlargement of the right ovary, surrounding fluid,or focal mass to serve as a lead point. Left ovary: The left ovary measures 3.9 x 1.7 x 1.6 cm in size, for anestimated left ovarian volume of 5.7 mL. Arterial and venous Dopplerwaveforms and color flow are present in the left ovary. There is athick-walled 7 x 4 x 7 mm hypoechoic structure in the left ovary, favoredto reflect a corpus luteum. Other adnexal masses: None. Free fluid: None. Cervix: A nabothian cyst is incidentally noted within the cervix. Fluid ispresent within the cervical cavity. BIOMETRY/MEASUREMENTS: Last menstrual period: Per discussion with the nurse's aides teacher, patient isunsure. Per the most recent OB examination, last menstrual period isreported as 07/20/2019, gestational age is therefore 12 weeks zero days byLM. Prior ultrasound dating: Gestational age today is 11 weeks 3 days by priorultrasound dating No definite pole or yolk sac is identified within the gestationalsac. Thin internal septation is present within the gestational sac.Echogenic focus measuring 2 mm along the anterior aspect of thegestational sac does not demonstrate motion and is favored to representminimal debris. IMPRESSION No pole identified in this patient with prior ultrasound showing agestational sac with a yolk sac 24 days prior. Findings are diagnostic ofpregnancy failure. These findings were discussed with ANDRÉS MCFARLANE MD by Dr. Perla at 10/11/2019 11:17 PM. Reference: Ismael Ramsey et al. Diagnostic criteria for nonviablepregnancy early in the first trimester. [place] Journal of Dwvurseg691.15 (2013): 0407-6991. I have personally reviewed the images and the above interpretation andagree with the findings. Andrés Mcfarlane MD IMG US OB ORDERAB LES * ANTIBODY IDENTIFICATION (10/11/2019 21:09 EDT) Antibody Identification Anti-D; patient recd RhIg 10/11/2019 23:41 EDT [facility] BLOOD BANK Blood VENOUS BLOOD / Unknown Venipuncture / Unknown 10/11/2019 21:09 EDT 10/11/2019 21:16 EDT Elise Charles MD BLOOD BANK TESTS [facility] BLOOD BANK [address] [place] [address] * HN LAB DIFF PATH REVIEW - HEME (10/11/2019 21:09 EDT) Pathologist Review Comment 10/12/19 13:41 ?? Elise Hightower MD 10/12/2019 13:41 EDT [facility] Blood VENOUS BLOOD / Unknown Venipuncture / Unknown 10/11/2019 21:09 EDT 10/11/2019 21:13 EDT Andrés Mcfarlane MD HEMATOLOGY & PF4 ORDERABLES [facility] [address] [place] [address] * TYPE AND SCREEN (10/11/2019 21:09 EDT) ABO B 10/11/2019 22:43 EDT [facility] BLOOD B[facility] Rh Factor Negative 10/11/2019 22:43 EDT [facility] BLOOD BANK Antibody Screen Positive 10/11/2019 22:43 EDT [facility] BLOOD BANK Specimen Expires: 10/14/2019 @ 23:59 10/11/2019 22:43 EDT [facility] BLOOD BANK Blood VENOUS BLOOD / Unknown Venipuncture / Unknown 10/11/2019 21:09 EDT 10/11/2019 21:16 EDT Elise Charles MD BLOOD BANK TESTS [facility] BLOOD BANK [address] [place] [address] * (ABNORMAL) DIFFERENTIAL, AUTOMATED MANUAL (10/11/2019 21:09 EDT) % Neutrophils 52.6 % 10/11/2019 23:25 EDT [facility] % Lymphocytes 25.0 % 10/11/2019 23:25 EDT [facility] % Atypical Lymphocytes 6.9 % 10/11/2019 23:25 EDT [facility] % Monocytes 8.6 % 10/11/2019 23:25 [facility] % Eosinophils 5.2 % 10/11/2019 23:25 [facility] % Basophils 1.7 % 10/11/2019 23:25 [facility] Absolute Neutrophils 9.29(H) 2.20 - 8.85 K/cmm 10/11/2019 23:25 EDT [facility] Absolute Lymphocytes 4.42(H) 1.09 - 3.30 K/cmm 10/11/2019 23:25 [facility] Absolute Atypical Lymphocytes 1.22 K/cmm 10/11/2019 23:25 [facility] Absolute Monocytes 1.52(H) 0.10 - 0.80 K/cmm 10/11/2019 23:25 [facility] Absolute Eosinophils 0.92(H) 0.03 - 0.61 K/cmm 10/11/2019 23:25 [facility] ABS Basophils 0.30(H) 0.01 - 0.11 K/cmm 10/11/2019 23:25 [facility] Blood VENOUS BLOOD / Unknown Venipuncture / Unknown 10/11/2019 21:09 EDT 10/11/2019 21:13 EDT Andrés Mcfarlane MD HEMATOLOGY & PF4 ORDERABLES [facility] [address] [place] [address] * (ABNORMAL) QUANT BETA HCG, (10/11/2019 21:09 EDT) Pathologist [facility] Beta HCG Quant, 2,954(H) <5 mIU/ml 10/11/2019 22:54 [facility] Comment: NOTE: : Negative: Less than 5mIU/mL Indeterminant: Between 5 and 25 mIU/mL, recommend repeat testing in 48 hours Positive: Greater than 25 mIU/mL The results of this assay can be falsely lowered due to the consumption of Biotin. Blood VENOUS BLOOD / Unknown Venipuncture / Unknown 10/11/2019 21:09 EDT 10/11/2019 21:13 EDT Andrés Mcfarlane MD CHEMISTRY & BLOOD GAS ORDERABLES Performing Organization Address City/State/[facility] Co de Phone Number [facility] [address] [place] [address] * (ABNORMAL) COMPLETE BLOOD COUNT AND DIFFERENTIAL (10/11/2019 21:09 EDT) [facility] WBC 17.66(H) 4.00 - 12.40 K/cmm 10/11/2019 22:16 [facility] RBC 4.70 3.86 - 5.04 M/cmm 10/11/2019 22:16 [facility] Hemoglobin 14.4 11.6 - 15.2 gm/dL 10/11/2019 22:16 [facility] HCT 41.9 34.9 - 44.4 % 10/11/2019 22:16 [facility] MCV 89 81 - 98 fl 10/11/2019 22:16 [facility] MCH 30.6 26.7 - 33.3 pg 10/11/2019 22:16 [facility] MCHC 34.4 32.1 - 35.9 gm/dL 10/11/2019 22:16 [facility] RDW-CV 12.1 <14.7 % 10/11/2019 22:16 [facility] RDW-SD 39.5 <50.4 fl 10/11/2019 22:16 EDT [facility] PLT 443(H) 141 - 377 K/cmm 10/11/2019 22:16 EDT [facility] MPV 9.5 9.5 - 12.7 fl 10/11/2019 22:16 EDT [facility] Type of Differential: Manual 10/11/2019 22:16 EDT [facility] Blood VENOUS BLOOD / Unknown Venipuncture / Unknown 10/11/2019 21:09 EDT 10/11/2019 21:13 EDT Andrés Mcfarlane MD PACKAGES & DNA WA OBE ORDERABLES Performing Organization Address City/[facility]/ZIP Co de Phone Number [facility] [address] [place] [address] * BLOOD BANK HOLD (10/11/2019 21:09 EDT) Hold BB Spec will exp at 23:59, 3 days from collect date 10/11/2019 21:31 EDT [facility] BLOOD BANK Blood VENOUS BLOOD / Unknown Venipuncture / Unknown 10/11/2019 21:09 EDT 10/11/2019 21:16 EDT Elise Charles MD BLOOD BANK TESTS Performing Organization Address City/[facility]/ZIP Co de Phone Number [facility] BLOOD BANK [address] [place] [phone] * HOLD SST (10/11/2019 21:09 EDT) Hold Hold 10/11/2019 22:16 EDT [facility] Blood VENOUS BLOOD / Unknown Venipuncture / Unknown 10/11/2019 21:09 EDT 10/11/2019 21:13 EDT Elise Charles MD LAB INFO SERVICE A ND SUPPORT & PHONE RESULT Performing Organization Address City/[facility]/ZIP Co de Phone Number [facility] [address] [place] [address] * HOLD LAVENDER TOP (10/11/2019 21:09 EDT) Hold Hold 10/11/2019 22:16 EDT [facility] Blood VENOUS BLOOD / Unknown Venipuncture / Unknown 10/11/2019 21:09 EDT 10/11/2019 21:13 EDT Elise Charles MD LAB INFO SERVICE A ND SUPPORT & PHONE RESULT [facility] [address] [place] [address] * HOLD GREEN TOP (10/11/2019 21:09 EDT) Hold Hold 10/11/2019 22:16 EDT [facility] Blood VENOUS BLOOD / Unknown Venipuncture / Unknown 10/11/2019 21:09 EDT 10/11/2019 21:13 EDT Elise Charles MD LAB INFO SERVICE A ND SUPPORT & PHONE RESULT [facility] [address] [place] [address] * HOLD BLUE TOP (10/11/2019 21:09 EDT) Hold Hold 10/11/2019 22:16 EDT [facility] Blood VENOUS BLOOD / Unknown Venipuncture / Unknown 10/11/2019 21:09 EDT 10/11/2019 21:13 EDT Elise Charles MD LAB INFO SERVICE A ND SUPPORT & PHONE RESULT [facility] [address] [place] [address] documented in this encounter Visit Diagnoses Diagnosis in first trimester- Primary Unspecified , without mention of complication, unspecified documented in this encounter Administered Medications Inactive Administered Medications - up to 3 most recent administrations Medication Order MAR Action Action Date Dose Rate Site acetaminophen (TYLENOL) tablet 1,000 mg 1,000 mg, oral, NOW X1, 1 dose, On Renee 10/11/19 at 2345, STAT Given 10/12/2019 0:08 EDT 1,000 mg ondansetron (ZOFRAN-ODT) disintegrating tablet 4 mg 4 mg, oral, NOW X1, 1 dose, On Renee 10/11/19 at 2345, STAT Given 10/12/2019 0:08 EDT 4 mg documented in this encounter Active and Recently Administered Medications Times are shown in EDT. Scheduled Medication Order 10/10/2019 10/11/2019 10/12/2019 acetaminophen (TYLENOL) tablet 1,000 mg (COMPLETED) 1,000 mg, oral, NOW X1, 1 dose, On Renee 10/11/19 at 2345, STAT 0008 (Given - Provid er: Ann Giang RN) ondansetron (ZOFRAN-ODT) disintegrating tablet 4 mg (COMPLETED) 4 mg, oral, NOW X1, 1 dose, On Renee 10/11/19 at 2345, STAT 0008 (Given - Provid er: Ann Giang RN) documented in this encounter Care Teams Janitor Cleaner Relationship Specialty Start Date End Date None, Provider PCP - General 06/18/19 11/25/19 documented as of this encounter
--- OUTSIDE RECORDS SUMMARY | 2023-12-16 00:44 | XMS_ITS | Encounter Summary ---
Author Organization [facility] Address [address] [place] [address] Care Team Providers Care Room Cooler Installer Name Role Phone None, Provider Primary Care Provider Unavailabl e Encounter Details Date Type Department Care Team (Late st Contact Info) Description 10/04/2019 Orders Only [facility] Obstetrics & Midwifery - [address] [address] Kylah Jimenes, RN Social History Tobacco Use Types Packs/Day [...] Dispensed Refills Start Date End Da te blood glucose meter One Touch Verio Flex meter. 1 Each 10/04/2019 12/21/2021 documented in this encounter Plan of Treatment Upcoming Encounters Date Type Department Care Team (Late st Contact Info) Description 02/21/2024 9:45 EDT Office Visit [facility] Adult Primary Care - [address] [address] Carrington Calderon MD [address] [phone] 02/27/2024 8:30 EDT Telemedicine [facility] Sleep Program - [address] [phone] Rn, Sleep 02/29/2024 10:30 EDT Appointment [facility] Radiology Nuclear Medicine and PET - [address] [phone] 02/29/2024 14:30 EDT Appointment [facility] Radiology Nuclear Medicine and PET [address] [phone] 03/01/2024 8:00 EDT Appointment [facility] Radiology Nuclear Medicine and PET [address] [phone] 03/01/2024 9:30 EDT Appointment [facility] Radiology Nuclear Medicine and PET - [address] [phone] documented as of this encounter Visit Diagnoses Not on filedocumented in this encounter Care Teams Room Cooler Installer Relationship Specialty Start Date End Date None, Provider PCP - General 06/18/19 11/25/19 documented as of this encounter
--- OUTSIDE RECORDS SUMMARY | 2023-12-16 00:44 | XMS_ITS | Encounter Summary ---
Author Organization [facility] Address [address] [place] [address] Care Team Providers Care Steam Shovel Runner Name Role Phone None, Provider Primary Care Provider Unavailabl e Reason for Visit * Reason Comments Injections RhoGAM Encounter Details Date Type Department Care Team (Late st Contact Info) Description 10/03/2019 10:30 EDT Office Visit [facility] Obstetrics & Midwifery - [facility] [address] [place] [address] Nurse, Mfm First trimester bleeding (Primary Dx) Social History Tobacco Use Types [...] as of this encounter Progress Notes * Maryann Heart RN - 10/03/2019 1030 EDT Patient Education Topic: Rhogam Injection Method: Verbal Taught to: Patient Barriers: None Outcomes: independent and verbalized understanding Cristy called in yesterday with first trimester spotting. Blood type B negative. Discussed with Dr. Duvall - should adminster RhoGAM today. Cristy states she is feeling better today and that bleeding has subsided, so she is reassured about that. Reviewed that RhoGAM shot is not harmful to and reviewed the mechanisms of how it works. Patient verbalized understanding and is agreeable to get RhoGAM injection today. See MAR for more details. Cristy also states her pharmacist recommended that she gets a new glucometer since hers is very old. Glucometer from office supply provided to patient - she has a prescription for lancets and teststrips at the pharmacy already. Signature: I was supervised by Dr. Prakash and Dr. Duvall who was present via on-call pager. MARYANN HEART RN 10/03/2019 11:13 documented in this encounter Plan of Treatment Upcoming Encounters Date Type Department Care Team (Late st Contact Info) Description 02/21/2024 9:45 EDT Office Visit [facility] Adult Primary Care - [address] [phone] Carrington Calderon MD [address] [place] [address] [address] [place] [phone] 02/27/2024 8:30 EDT Telemedicine [facility] Sleep Program - [address] [phone] Rn, Sleep 02/29/2024 10:30 EDT Appointment [facility] Radiology Nuclear Medicine and PET - [address] [address] [phone] 02/29/2024 14:30 EDT Appointment [facility] Radiology Nuclear Medicine and PET [address] [address] 03/01/2024 8:00 EDT Appointment [facility] Radiology Nuclear Medicine and PET [address] [address] 03/01/2024 9:30 EDT Appointment [facility] Radiology Nuclear Medicine and PET [address] [address] documented as of this encounter Visit Diagnoses Diagnosis First trimester bleeding- Primary Unspecified hemorrhage in early , antepartum documented in this encounter Administered Medications Administered Medications Medication Order MAR Action Action Date Dose Rate Site Rho(D) Immune Globulin IM Intramuscular Given 10/03/2019 10:56 EDT 300 mcg Right D eltoid documented in this encounter Care Teams Steam Shovel Runner Relationship Specialty Start Date End Date None, Provider PCP - General 06/18/19 11/25/19 documented as of this encounter
--- OUTSIDE RECORDS SUMMARY | 2023-12-16 00:45 | XMS_ITS | Encounter Summary ---
Author Organization [facility] Address [address] [place] [address] Care Team Providers Care Tour Director Name Role Phone Benita Shafer GUSTAVO Primary Care Provider [phone] Encounter Details Date Type Department Care Team (Late st Contact Info) Description 11/10/2018 Phlebotomy Only [address] [address] Podiatric Physician, Outpatient Ectopic without intrauterine , unspecified location (Primary Dx) Social History Tobacco Use [...] EDT Office Visit [facility] Adult Primary Care - [address] [phone] Carrington Calderon MD 1 [facility] [address] [place] [phone] 02/27/2024 8:30 EDT Telemedicine [facility] Sleep Program - [address] [phone] Rn, Sleep 02/29/2024 10:30 EDT Appointment [facility] Radiology Nuclear Medicine and PET [address] [phone] 02/29/2024 14:30 EDT Appointment [facility] Radiology Nuclear Medicine and PET [address] [phone] 03/01/2024 8:00 EDT Appointment [facility] Radiology Nuclear Medicine and PET [address] [phone] 03/01/2024 9:30 EDT Appointment [facility] Radiology Nuclear Medicine and PET [address] [phone] documented as of this encounter Procedures Procedure Name Priority Date/Time Associated Diagnosis Comments QUANT BETA HCG, Routine 11/10/2018 8:52 EDT Ectopic without intrauterine , unspecified location documented in this encounter Results * (ABNORMAL) QUANT BETA HCG, (11/10/2018 8:52 EDT) Quant Beta HCG, Preg 1,117(H) <5 mIU/ml 11/10/2018 9:47 EDT [facility] Comment: Reference Range: Negative = <5 Indeterminate = 5-25 recommend repeat in 48 hours. Positive = >25 The results of this assay can be falsely lowered due to the consumption of Biotin. Blood specimen (specimen) BLOOD SPECIMEN / Unknown 11/10/2018 8:52 EDT 11/10/2018 9:00 EDT Charu Flynn MD CHEMISTRY & BLOO D GAS ORDERABLES [facility] [address] [place] [address] documented in this encounter Visit Diagnoses Diagnosis Ectopic without intrauterine , unspecified location- Primary documented in this encounter Care Teams Tour Director Relationship Specialty Start Date End Date Benita Shafer NP PCP - General 08/22/18 06/17/19 documented as of this encounter
--- OUTSIDE RECORDS SUMMARY | 2023-12-16 00:45 | XMS_ITS | Encounter Summary ---
Author Organization [facility] Address [address] [place] [address] Care Team Providers Care Lead Web Developer Name Role Phone Benita Shafer NEW CAR DRIVER Primary Care Provider Encounter Details Date Type Department Care Team (Late st Contact Info) Description 10/29/2018 Phlebotomy Only [facility] - [address] [address] Dowel Sticker Operator, Outpatient 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 (Primary Dx) Social History Tobacco Use Types Packs/Day Years Used Date Smoking Tobacco: Every Day Cigarettes Smokeless Tobacco: Never Alcohol Use Standard Drinks/Week [...] on file documented as of this encounter Plan of Treatment Upcoming Encounters Date Type Department Care Team (Late st Contact Info) Description 02/21/2024 9:45 EDT Office Visit [facility] Adult Primary Care - [address] [address] Carrington Calderon MD 1 [facility] Level [address] [place] [address] 02/27/2024 8:30 EDT Telemedicine [facility] Sleep Program - [address] [place] [address] Rn, Sleep 02/29/2024 10:[address] [facility] Radiology Nuclear Medicine and PET - [address] [address] 02/29/2024 14:[address] [facility] Radiology Nuclear Medicine and PET [address] [address] 03/01/2024 8:[address] [facility] Radiology Nuclear Medicine and PET [address] [phone] 03/01/2024 9:[address] [facility] Radiology Nuclear [place] [address] documented as of this encounter Procedures Procedure Name Priority Date/Time Associated Diagnosis Comments QUANT BETA HCG, Routine 10/29/2018 9:20 EDT 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 documented in this encounter Results * (ABNORMAL) QUANT BETA HCG, (10/29/2018 9:20 EDT) Quant Beta HCG, Preg 2,338(H) <5 mIU/ml 10/29/2018 10:12 EDT [facility] Comment: Reference Range: Negative = <5 Indeterminate = 5-25 recommend repeat in 48 hours. Positive = >25 The results of this assay can be falsely lowered due to the consumption of Biotin. Blood specimen (specimen) BLOOD SPECIMEN / Unknown 10/29/2018 9:20 EDT 10/29/2018 9:38 EDT Charu Flynn MD CHEMISTRY & BLOO D GAS ORDERABLES [facility] [address] [place] [address] documented in this encounter Visit Diagnoses Diagnosis 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 - Primary documented in this encounter Care Teams Lead Web Developer Relationship Specialty Start Date End Date Benita Shafer NP PCP - General 08/22/18 06/17/19 documented as of this encounter
--- OUTSIDE RECORDS SUMMARY | 2023-12-16 00:45 | XMS_ITS | Encounter Summary ---
Author Organization [facility] Address [address] [place] [address] Care Team Providers Care Watchguard Name Role Phone Benita Shafer GUSTAVO Primary Care Provider [phone] Reason for Visit * Reason Onset Date Comments Labs Only 11/01/2018 Encounter Details Date Type Department Care Team (Late st Contact Info) Description 11/01/2018 Telephone [facility] Women's Services - [address] [phone] Charu Flynn MD 111 [facility], Level [address] [place] [address] Labs Only Social History Tobacco [...] on file documented as of this encounter Miscellaneous Notes * Telephone Encounter - Susana Tomlinson RN - 11/02/2018 1019 EDT External results entered from faxed documentation, will have this documentation scanned. * Telephone Encounter - Susana Tomlinson RN - 11/01/2018 1606 EDT Spoke with [facility] BHCG today = 1652.8. Cristy ANDERSON: said she is having some symptoms, wants to discuss with nurse, concerned that may berelated to medication she was given last week. Spoke with Cristy:On afternoon began getting danyell horse in right upper arm, on Tuesday noticed pain like a pulled muscle in shoulder & arm, then Tuesday/Tuesday pain & throbbing was also in elbow down to wrist, now entire arm is throbbing, cannot lift things, was up all night unable to sleep, taking tylenol 1000mg last night & did not help at all. Call interupted by return MD page---> advised will call her back. Spoke with Dr. Almeida: Based on 29% drop D4 to D7, MTX effective & does not need another dose of MTX, plan weekly HCG. Also discussed above conversation with Cristy---> Cristy to go to ER, can go to [facility]. Spoke with Cristy: she denies SOB, but reports arm hurts when she coughs or moves, does not think her arm is swollen, reports had mild intermittent 4/10 cramping over weekend, no VB. Advised as HCG dropped appropriately will not need another MTX. She will proceed to [facility] ER. Spoke with ER triage: gave summary & Cristy ETA 5:30-6pm. * Telephone Encounter - Susana Tomlinson RN - 11/01/2018 1415 EDT Spoke with Radha @ [facility], she could see [facility] lab orders for quant HCG and SST. They only kirstin on [facility].After patient left they received faxed orders for HCG/CBC/creat/BUN/ALT/AST (all exceptCBC can be done from one tiger [facility]). Advised only labs needed were quant HCG, and then if < 15% drop from prior HCG on 10/29, will have them run creat, ALT & AST. Unfortunately, CBC (if needed) cannot be run from [facility]. RTCB to [phone] with quant HCG results. * Telephone Encounter - Miley Wolff - 11/01/2018 1400 EDT Radha from the outpatient lab at [facility] has some questions about the labwork for this patient. documented in this encounter Plan of Treatment Upcoming Encounters Date Type Department Care Team (Late st Contact Info) Description 02/21/2024 9:45 EDT Office Visit [facility] Adult Primary Care - [address] [phone] Carrington Calderon MD [address] [place] [phone] 02/27/2024 8:30 EDT Telemedicine [facility] Sleep Program - [address] [phone] Rn, Sleep 02/29/2024 10:[address] [facility] Radiology Nuclear Medicine and PET [address] [phone] 02/29/2024 14:[address] [facility] Radiology Nuclear Medicine and PET [address] [id number] 03/01/2024 8:[address] [facility] Radiology Nuclear Medicine and PET [address] [id number] 03/01/2024 9:[address] [facility] Radiology Nuclear Medicine and PET [address] [phone] documented as of this encounter Procedures Procedure Name Priority Date/Time Associated Diagnosis Comments QUANT BETA HCG, Routine 11/01/2018 11:09 EDT documented in this encounter Results * QUANT BETA HCG, (11/01/2018 11:09 EDT) HCG, External 1,652.8 2.39 - 1,500 mIU/mL [facility] Blood specimen (specimen) 11/01/2018 11:09 EDT Charu Flynn MD CHEMISTRY & BLOO D GAS ORDERABLES [facility] documented in this encounter Visit Diagnoses Not on filedocumented in this encounter Care Teams Watchguard Relationship Specialty Start Date End Date Benita Shafer NP PCP - General 08/22/18 06/17/19 documented as of this encounter
--- OUTSIDE RECORDS SUMMARY | 2023-12-16 00:45 | XMS_ITS | Encounter Summary ---
Author Organization [facility] Address [address] [place] [address] Care Team Providers Care Director Of Resource Development Name Role Phone Benita Shafer CELL OPERATION SUPERVISOR Primary Care Provider Reason for Visit * Reason Onset Date Comments Labs Only 11/07/2018 Encounter Details Date Type Department Care Team (Late st Contact Info) Description 11/07/2018 Telephone [facility] Women's Services - [address] [address] Michelle Sanchez, MARCELO Labs Only Social History Tobacco Use Types Packs/Day Years Used Date Smoking Tobacco: Every Day Cigarettes 0.5 8 Smokeless Tobacco: Never Alcohol Use Standard Drinks/Week [...] Telephone Encounter - Jordyn Wolfe RN - 11/08/2018 1910 EDT Call to patient. I spoke to patient. Patient states that she to go in today for blood work for beta-hCG. States that she will try to go in tomorrow. Patient given lab hours at [facility]. Lab opens up at 6. Patient states she will try to go in the morning if not she will try to go in the afternoon. Reiterated the importance of getting the blood work drawn tomorrow. Patient states that bleeding has lightened up . Denies any pain at this time. Reviewed pelvic rest precautions. Patient informed nurse will call her tomorrow with test results. * Telephone Encounter - Jordyn Wolfe RN - 11/08/2018 1901 EDT Call [facility] lab. Patient had not gone into the lab as of now which is 1900. * Telephone Encounter - Michelle Sanchez RN - 11/07/2018 0945 EDT TC to Cristy to remind to go to lab for HCG tomorrow (11/08). Pt states she will go to [facility] lab in evening; advised we will be in touch with results/plan on . Pt states she continues to have heavy bleeding which has begun to decrease. Today flow is similar to heavy period. Advised that length/severity of bleeding varies by woman and depends on many factors, including length of . Expect bleeding to be gradually decreasing, and pt should expect bleeding to resolve 2-3 weeks following MTX administration. Reiterated bleeding precautions and REGISTERED NURSE STEP DOWN triage number if pt has questions/concerns. documented in this encounter Plan of Treatment Upcoming Encounters Date Type Department Care Team (Late st Contact Info) Description 02/21/2024 9:45 EDT Office Visit [facility] Adult Primary Care - [address] [phone] Carrington Calderon MD 1 [facility] 1 [place] [phone] 02/27/2024 8:30 EDT Telemedicine [facility] Sleep Program - [address] [phone] Rn, Sleep 02/29/2024 10:30 EDT Appointment [facility] Radiology Nuclear Medicine and PET [address] [address] 02/29/2024 14:30 EDT Appointment [facility] Radiology Nuclear Medicine and PET [address] [address] 03/01/2024 8:00 EDT Appointment [facility] Radiology Nuclear Medicine and PET [address] [address] 03/01/2024 9:30 EDT Appointment [facility] Radiology Nuclear Medicine and PET [address] [address] documented as of this encounter Results * (ABNORMAL) QUANT BETA HCG, (11/10/2018 8:52 EDT) Quant Beta HCG, Preg 1,117(H) <5 mIU/ml 11/10/2018 9:47 EDT [facility] Comment: Reference Range: Negative = <5 Indeterminate = 5-25 recommend repeat in 48 hours. Positive = >25 The results of this assay can be falsely lowered due to the consumption of Biotin. Blood specimen (specimen) BLOOD SPECIMEN / Unknown 11/10/2018 8:52 EDT 11/10/2018 9:00 EDT Charu Flynn MD CHEMISTRY & BLOO D GAS ORDERABLES [facility] [address] [place] [address] documented in this encounter Visit Diagnoses Diagnosis Ectopic without intrauterine , unspecified location- Primary documented in this encounter Care Teams Director Of Resource Development Relationship Specialty Start Date End Date Benita Shafer NP PCP - General 08/22/18 06/17/19 documented as of this encounter
--- OUTSIDE RECORDS SUMMARY | 2023-12-16 00:45 | XMS_ITS | Encounter Summary ---
Author Organization [facility] Address [address] [place] [address] Care Team Providers Care Web Programmer Name Role Phone Benita Shafer SIDING COREBOARD INSPECTOR Primary Care Provider [phone] Encounter Details Date Type Department Care Team (Late st Contact Info) Description 11/03/2018 Orders Only [facility] Women's Services - [facility] [address] [place], [place] [address] Charu Flynn MD 111 [facility] 4 [place] [address] Social History Tobacco Use Types [...] 02/21/2024 9:45 EDT Office Visit [facility] Adult Primary Care - [address] [phone] Carrington Calderon MD [address] [place] [address] 1 [place] [phone] 02/27/2024 8:30 EDT Telemedicine [facility] Sleep Program - [address] [address] Rn, Sleep 02/29/2024 10:30 EDT Appointment [facility] Radiology Nuclear Medicine and PET [address] [id number] 02/29/2024 14:30 EDT Appointment [facility] Radiology Nuclear Medicine and PET [address] [phone] 03/01/2024 8:00 EDT Appointment [facility] Radiology Nuclear Medicine and PET [address] [phone] 03/01/2024 9:30 EDT Appointment [facility] Radiology Nuclear Medicine and PET [address] [address] documented as of this encounter Procedures Procedure Name Priority Date/Time Associated Diagnosis Comments QUANT BETA HCG, Routine 11/01/2018 11:09 EDT documented in this encounter Results * QUANT BETA HCG, (11/01/2018 11:09 EDT) HCG, External 1,652.8 2.39 - 15,000 mIU/mL [facility] Comment:Please see the scann ed report in EPIC for further interpretation. Blood specimen (specimen) 11/01/2018 11:09 EDT Charu Flynn MD CHEMISTRY & BLOO D GAS ORDERABLES [facility] documented in this encounter Visit Diagnoses Not on filedocumented in this encounter Care Teams Web Programmer Relationship Specialty Start Date End Date Benita Shafer NP PCP - General 08/22/18 06/17/19 documented as of this encounter
--- OUTSIDE RECORDS SUMMARY | 2023-12-16 00:45 | XMS_ITS | Encounter Summary ---
Author Organization [facility] Address [address] [place] [address] Care Team Providers Care Chef Passenger Vessel Name Role Phone Benita Shafer NITROGLYCERIN DISTRIBUTOR Primary Care Provider Reason for Visit * Reason Onset Date Comments Results 11/21/2018 Encounter Details Date Type Department Care Team (Late st Contact Info) Description 11/21/2018 Telephone [facility] Women's Services - [address] [address] Jordyn Wolfe, MARCELO Results Social History Tobacco Use Types [...] encounter Miscellaneous Notes * Telephone Encounter - Lisseth Briscoe RN - 12/04/2018 1114 EDT Called [facility] lab to see if there were any recent betas, they state pt had been seen in there ED last night for unrelated problem. Asked them if they could run a Beta HCG off of what they collected lastnight 12/03. Called [facility] lab to see if they were able to run the HCG and asked them to fax results to [phone]. They state they will call and fax results. * Telephone Encounter - Lisseth Briscoe RN - 12/01/2018 1152 EDT Call to [facility] lab who states pt has not been in since 11/21 for another CG. LVM for pt stating this is a nurse from your providers office calling to let you know to please go today and get your blood drawn (kimberly is preferable). We are hoping to check in with you and see how you are doing, would like to discuss with you about the importance of getting this f/u lab work. Also want to remind you of your upcoming appt 12/08 @ 3693 for a consult. If you are not able to get yourlab work done, or if you cannot keep that 12/08 appt please call [phone] to let us know. Attempted to reach pt 2 more times with no answer, no further msg left. * Telephone Encounter - Jordyn Wolfe RN - 11/30/2018 1031 EDT Call to [facility] lab. Patient has not gone in for blood work beta-hCG since 2018. Plan was for patient to have blood drawn on November 27, 2018. * Telephone Encounter - Jordyn Wolfe RN - 11/29/2018 0924 EDT Call to patient. Left message for her to call office in regards to follow up blood work. This is the second call to patient. Patient was supposed to have a beta-hCG drawn on November 28, 2018. * Telephone Encounter - Jordyn Wolfe RN - 11/29/2018 0917 EDT Call to [facility] lab. Patient has not gone in for blood work yet. Will call patient. * Telephone Encounter - Jordyn Wolfe RN - 11/28/2018 1517 EDT Call to patient. Left message that the plan is for her to go to the lab for blood work( beta-hCG) retesting which she would be due today. Order is good at [facility] in [facility]. * Telephone Encounter - Jordyn Wolfe RN - 11/28/2018 1121 EDT Call to [facility] lab. Patient has not gone in for blood work at. Plan was for patient to get beta-hCG drawn on 11/27/2018. * Telephone Encounter - Jordyn Wolfe RN - 11/21/2018 1717 EDT Call to patient. I spoke to patient. Reviewed test results from today. Beta-hCG level was 299.98. Plan is to repeat beta-hCG in 1 week. Patient states that she would like to go in for her blood work on November 27, 2018 as she is off that day. Patient will go to [facility]. Patient with no questions at this time. documented in this encounter Plan of Treatment Upcoming Encounters Date Type Department Care Team (Late st Contact Info) Description 02/21/2024 9:45 EDT Office Visit [facility] Adult Primary Care - [address] [address] Carrington Calderon MD [address] [phone] 02/27/2024 8:30 EDT Telemedicine [facility] Sleep Program - [address] [address] Rn, Sleep 02/29/2024 10:30 EDT Appointment [facility] Radiology Nuclear Medicine and PET [address] [phone] 02/29/2024 14:30 EDT Appointment [facility] Radiology Nuclear Medicine and PET [address] [address] 03/01/2024 8:00 EDT Appointment [facility] Radiology Nuclear Medicine and PET [address] [address] 03/01/2024 9:30 EDT Appointment [facility] Radiology Nuclear Medicine and PET [address] [phone] documented as of this encounter Visit Diagnoses Not on filedocumented in this encounter Care Teams Chef Passenger Vessel Relationship Specialty Start Date End Date Benita Shafer NP PCP - General 08/22/18 06/17/19 documented as of this encounter
--- OUTSIDE RECORDS SUMMARY | 2023-12-16 00:45 | XMS_ITS | Encounter Summary ---
Author Organization [facility] Address [address] [place] [address] Care Team Providers Care Conventional Underwriter Name Role Phone Benita Shafer MOLD RUNNER Primary Care Provider [phone] Reason for Visit * Reason Onset Date Comments Labs Only 12/12/2018 Encounter Details Date Type Department Care Team (Late st Contact Info) Description 12/12/2018 Telephone [facility] Women's Services - [address] [address] Ssuana Tomlinson, RN Labs Only Social History Tobacco Use [...] Telephone Encounter - Susana Tomlinson, RN - 12/12/2018 1002 EDT Spoke with [facility]: last HCG blood draw @ their lab was 12/03/18. Spoke with Cristy, she says she did not know she needed to repeat her blood on 12/10 ---> I explained that we need to follow this to zero, very important to have this follow-up. She will get her blood done early tomorrow am. Also discussed NOS for consult last Tuesday, she said she was unable to come to consult because her daughter was sick, but would like to recheduled for a Tuesday, as this is her day off. documented in this encounter Plan of Treatment Upcoming Encounters Date Type Department Care Team (Late st Contact Info) Description 02/21/2024 9:45 EDT Office Visit [facility] Adult Primary Care - [address] [phone] Carrington Calderon MD [address] [phone] 02/27/2024 8:30 EDT Telemedicine [facility] Sleep Program - [address] [address] Rn, Sleep 02/29/2024 10:30 ED[facility] Nuclear Medicine and PET - [address] [phone] 02/29/2024 14:[address] [facility] Radiology Nuclear Medicine and PET - [address] [address] 03/01/2024 8:00 EDT Appointment [facility] Radiology Nuclear Medicine and PET - [address] [address] 03/01/2024 9:30 EDT Appointment [facility] Radiology Nuclear Medicine and PET - [address] [address] documented as of this encounter Visit Diagnoses Not on filedocumented in this encounter Care Teams Conventional Underwriter Relationship Specialty Start Date End Date Benita Shafer NP PCP - General 08/22/18 06/17/19 documented as of this encounter
--- OUTSIDE RECORDS SUMMARY | 2023-12-16 00:45 | XMS_ITS | Encounter Summary ---
Author Organization [facility] Address [address] [place] [address] Care Team Providers Care Rotary Lithographic Press Operator Name Role Phone Benita Shafer GUSTAVO Primary Care Provider Reason for Referral * Consult (3 - 10 Business Days) - Closed Specialty Diagnoses / Procedures [facility] To Contact [facility] Team / Obstetrics & Gynecology Diagnoses Ectopic , unspecified location, unspecified whether intrauterine present History of recurrent miscarriages Charu Flynn MD 111 [facility], [facility] 4 [place] [address] [facility] [address] [place] [address] Referral ID Status Reason Start Date Expiration Date V isits Requested Visits Authorized [id number] Closed Specialty Services Required 11/10/2018 1 1 Question Answer What areas would you like the C[facility] to focus on? Women's Health Initiative Comments As we discussed in your visit today, someone will be contacting you from the Community Health Team to schedule an appointment with you. If you do not hear from the CHT within a week please call the Community Health Team at [phone]. Reason for Visit * Reason Onset Date Comments Labs Only 11/10/2018 Encounter Details Date Type Department Care Team (Late st Contact Info) Description 11/10/2018 Telephone [facility] Women's Services [address] [address] Susana Busby, RN Labs Only Social History Tobacco Use [...] encounter Miscellaneous Notes * Addendum Note - Susana Busby RN - 11/10/2018 1153 EDTAddended by: SUSANA BUSBY on: 11/10/2018 11:53 Modules accepted: Orders * Telephone Encounter - Susana Busby RN - 11/10/2018 0850 EDT 0850: Spoke with Cristy, she went to [facility] lab last night but it was too late to get blood drawn, currently at [facility] lab. When asked how she is doing she said physically I'm doing fine, reports bleeding has stopped & denies pain. When asked how she is doing emotionally she said getting better, says it has been a long road. Still has Loss flyer that was previously given to her. O ffered a referral to our SW & she accepted---> advised will place referral & Sw Kylah or Niru will reach out to her & will TCB to her with HCG results. CHT SW referral placed. 11:42: Spoke with Cristy: advised HCG result today =1117, down from 1652 on 11/01, plan is repeatHCG in one week 11/17. Advised will call her next week, when results are available. She prefers to go to [facility] for blood work, but may go to [facility] as is closer. I told her if [facility] registration says they do not have an order tell them to call the lab, as they can see [facility] order. When asked if she has any questions about precautions (when to go to ER), she said all her questions have been answered & she knows what to do. HCG standing order placed, 4 occurrences. documented in this encounter Plan of Treatment Upcoming Encounters Date Type Department Care Team (Late st Contact Info) Description 02/21/2024 9:45 EDT Office Visit [facility] Adult Primary Care - [address] [phone] Carrington Calderon MD [address] [phone] 02/27/2024 8:30 EDT Telemedicine [facility] Sleep Program - [address] [phone] Rn, Sleep 02/29/2024 10:[address] [facility] Radiology Nuclear Medicine and PET - [address] [phone] 02/29/2024 14:[address] [facility] Radiology Nuclear Medicine and PET [address] [phone] 03/01/2024 8:[address] [facility] Radiology Nuclear Medicine and PET [address] [address] 03/01/2024 9:[address] [facility] Radiology Nuclear Medicine and PET - [address] [address] Scheduled Referrals Name Type Priority Associated Diagnoses Orde r Schedule AMB CONS/FOLLOW UP [facility] TEAM Outpatient Referral Routine Ectopic , unspecified location, unspecified whether intrauterine present History of recurrent miscarriages Ordered: 11/10/2018 documented as of this encounter Visit Diagnoses Diagnosis Ectopic , unspecified location, unspecified whether intrauterine present- Primary History of recurrent miscarriages documented in this encounter Care Teams Rotary Lithographic Press Operator Relationship Specialty Start Date End Date Benita Shafer NP PCP - General 08/22/18 06/17/19 documented as of this encounter
--- OUTSIDE RECORDS SUMMARY | 2023-12-16 00:45 | XMS_ITS | Encounter Summary ---
Author Organization [facility] Address [address] [place] [address] Care Team Providers Care Scrum Product Owner Name Role Phone Benita Shfaer POWERPLANT OPERATOR Primary Care Provider [phone] Encounter Details Date Type Department Care Team (Late st Contact Info) Description 11/21/2018 Orders Only [facility] Women's Services - [address] [id number] Charu Flynn MD [address] [facility], Level [address] [place] [address] Social History Tobacco Use Types [...] Info) Description 02/21/2024 9:45 EDT Office Visit [facility] Adult Primary Care - [address] [id number] Carrington Calderon MD [address] [phone] 02/27/2024 8:30 EDT Telemedicine [facility] Sleep Program - [address] [phone] Rn, Sleep 02/29/2024 10:30 EDT Appointment [facility] Radiology Nuclear Medicine and PET [address] [phone] 02/29/2024 14:30 EDT Appointment [facility] Radiology Nuclear Medicine and PET [address] [phone] 03/01/2024 8:00 EDT Appointment [facility] Radiology Nuclear Medicine and PET [address] [phone] 03/01/2024 9:30 EDT Appointment [facility] Radiology Nuclear Medicine and PET [address] [phone] documented as of this encounter Procedures Procedure Name Priority Date/Time Associated Diagnosis Comments QUANT BETA HCG, Routine 11/21/2018 11:23 EDT documented in this encounter Results * QUANT BETA HCG, (11/21/2018 11:23 EDT) HCG, External 299.98 2.39 - 15,000 mIU/mL [facility] Comment:Please see the scann ed report in EPIC for further interpretation. Blood specimen (specimen) 11/21/2018 11:23 EDT Charu Flynn MD CHEMISTRY & BLOO D GAS ORDERABLES [facility] documented in this encounter Visit Diagnoses Not on filedocumented in this encounter Care Teams Scrum Product Owner Relationship Specialty Start Date End Date Benita Shafer NP PCP - General 08/22/18 06/17/19 documented as of this encounter
--- OUTSIDE RECORDS SUMMARY | 2023-12-16 00:45 | XMS_ITS | Encounter Summary ---
Author Organization [facility] Address [address] [place] [address] Care Team Providers Care Pump Station Operator Name Role Phone Benita Shafer KEY ACCOUNT COORDINATOR Primary Care Provider [phone] Reason for Visit * Reason Onset Date Comments Results 11/19/2018 Encounter Details Date Type Department Care Team (Late st Contact Info) Description 11/19/2018 Telephone [facility] [place] [facility] [address] [place] [address] Jackie Almeida MD Results Social History Tobacco Use Types Packs/Day [...] Miscellaneous Notes * Telephone Encounter - Jackie Almeida MD - 11/19/2018 0932 EDT Telephone Note: Called patient to discuss planned lab test. Originally was supposed to come in for beta-HCG on 11/17but was unable to leave work. Had plan to come yesterday but also did not come for lab draw. Left message requesting call back. If patient calls back, will request that she come in today for lab as she is being treated for ectopic and needs to have her beta-HCG's followed to zero to ensure adequate resolution. Jackie Almeida MD 11/19/2018 9:33 PGY-1 Obstetrics and Gynecology Pager #[phone] documented in this encounter Plan of Treatment Upcoming Encounters Date Type Department Care Team (Late st Contact Info) Description 02/21/2024 9:45 EDT Office Visit [facility] Adult Primary Care - [address] [phone] Carrington Calderon MD [address] [phone] 02/27/2024 8:30 EDT Telemedicine [facility] Sleep Program - [address] [address] Rn, Sleep 02/29/2024 10:30 EDT Appointment [facility] Radiology Nuclear Medicine and PET - [address] [phone] 02/29/2024 14:30 EDT Appointment [facility] Radiology Nuclear Medicine and PET [address] [id number] 03/01/2024 8:00 EDT Appointment [facility] Radiology Nuclear Medicine and PET - [address] [phone] 03/01/2024 9:30 EDT Appointment [facility] Radiology Nuclear Medicine and PET - [address] [address] documented as of this encounter Visit Diagnoses Not on filedocumented in this encounter Care Teams Pump Station Operator Relationship Specialty Start Date End Date Benita Shafer NP PCP - General 08/22/18 06/17/19 documented as of this encounter
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
--- OUTSIDE RECORDS SUMMARY | 2023-12-16 00:45 | XMS_ITS | Encounter Summary ---
Author Organization [facility] Address [address] [place] [address] Care Team Providers Care Auto Wash Buffer Name Role Phone Benita Shafer UNDERCOVER OPERATOR Primary Care Provider [phone] Reason for Visit * Reason Onset Date Comments Labs Only 10/29/2018 Encounter Details Date Type Department Care Team (Late st Contact Info) Description 10/29/2018 Telephone [facility] Women's Services - [address] [address] Deborah Saleh MD [address] [place] [address] Labs Only Social History Tobacco Use Types [...] encounter Miscellaneous Notes * Telephone Encounter - Deborah Saleh MD - 10/29/2018 9902 EDT Left voicemail indicating we received Day 4 HCG s/p MTX. No changes to plan. Next lab draw on Day 7. Deborah Saleh MD 10/29/2018 17:50 Obstetrics & Gynecology, PGY-4 Pager [phone] documented in this encounter Plan of Treatment Upcoming Encounters Date Type Department Care Team (Late st Contact Info) Description 02/21/2024 9:45 EDT Office Visit [facility] Adult Primary Care - [address] [address] Carrington Calderon MD 1 [facility] 1 [place] [address] 02/27/2024 8:30 EDT Telemedicine [facility] Sleep Program - [address] [address] Rn, Sleep 02/29/2024 10:30 EDT Appointment [facility] Radiology Nuclear Medicine and PET - [address] [id number] 02/29/2024 14:30 EDT Appointment [facility] Radiology Nuclear Medicine and PET [address] [id number] 03/01/2024 8:00 EDT Appointment [facility] Radiology Nuclear Medicine and PET - [address] [phone] 03/01/2024 9:30 EDT Appointment [facility] Radiology Nuclear Medicine and PET - [address] [phone] documented as of this encounter Visit Diagnoses Diagnosis Ectopic , unspecified location, unspecified whether intrauterine present- Primary documented in this encounter Care Teams Auto Wash Buffer Relationship Specialty Start Date End Date Benita Shafer NP PCP - General 08/22/18 06/17/19 documented as of this encounter
--- OUTSIDE RECORDS SUMMARY | 2023-12-16 00:45 | XMS_ITS | Encounter Summary ---
Author Organization [facility] Address [address] [place] [address] Care Team Providers Care Shared Services Manager Name Role Phone Benita Shafer GUEST SERVICE HOST Primary Care Provider [phone] Encounter Details Date Type Department Care Team (Late Contact Info) Description 11/01/2018 Orders Only [facility] Women's Services - [facility] [address] [place] [address] Lara Serrano RN [address] [place] [address] Right tubal without intrauterine (Primary Dx) Social History Tobacco [...] on file documented as of this encounter Progress Notes * Susana Tomlinson RN - 11/01/2018 1053 EDT Orders entered in error on 11/02/18. Cancelled SST HOLD, as unnecessary, HCG decreased by >15%. documented in this encounter Plan of Treatment Upcoming Encounters Date Type Department Care Team (Late Contact Info) Description 02/21/2024 9:45 EDT Office Visit [facility] Adult Primary Care - [address] [phone] Carrington Calderon MD [address] [phone] 02/27/2024 8:30 EDT Telemedicine [facility] Sleep Program - [address] [address] Rn, Sleep 02/29/2024 10:30 EDT Appointment [facility] Radiology Nuclear Medicine and PET [address] [id number] 02/29/2024 14:30 EDT Appointment [facility] Radiology Nuclear Medicine and PET [address] [phone] 03/01/2024 8:00 EDT Appointment [facility] Radiology Nuclear Medicine and PET [address] [id number] 03/01/2024 9:30 EDT Appointment [facility] Radiology Nuclear Medicine and PET [address] [address] documented as of this encounter Visit Diagnoses Diagnosis Right tubal without intrauterine - Primary documented in this encounter Care Teams Shared Services Manager Relationship Specialty Start Date End Date Benita Shafer NP PCP - General 08/22/18 06/17/19 documented as of this encounter
--- OUTSIDE RECORDS SUMMARY | 2023-12-16 00:45 | XMS_ITS | Encounter Summary ---
Author Organization [facility] Address [address] [place] [address] Care Team Providers Care Beautician Apprentice Name Role Phone Benita Shafer CHEMICAL STRENGTH TESTER Primary Care Provider [phone] Reason for Visit * Reason Comments Sore Throat I think I have stre p, my body aches, I think I have a fever. Pt reports feeling like this x 24 hours. 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 Encounter Details Date Type Department Care Team (Late st Contact Info) Description 11/21/2018 8:50 EDT - 11/21/2018 10:09 EDT Emergency [facility] Emergency Department - [address] [address] Josh Coelho, PA-C 111 [facility], Level [address] [place] [phone] Emergency, MD Ekaterina Pharyngitis, unspecified etiology (Primary Dx) Discharge Disposition: Home or Self [...] Sign Reading Time Taken Comments Blood Pressure 120/60 11/21/2018 1000 EDT Pulse 88 11/21/2018 1000 EDT Temperature 37 ??C (98.6 ??F) 11/21/2018 1000 EDT Respiratory Rate 18 11/21/2018 1000 EDT Oxygen Saturation 99% 11/21/2018 1000 EDT Inhaled Oxygen Concentration - - [...] 11/10/2018 documented as of this encounter Discharge Diagnoses Diagnosis J02.9 Acute pharyngitis, unspecified-J02.9[ICD-10-CM] R53.83 Other fatigue-R53.83[ICD-10-CM] R13.10 Dysphagia, unspecified-R13.10[ICD-10-CM] E11.9 Type 2 diabetes mellitus without complications-E11.9[ICD-10-CM] F17.210 Nicotine dependence, cigarettes, uncomplicated-F17.210[ICD-10-CM] Z88.6 Allergy status to analgesic agent status-Z88.6[ICD-10-CM] documented in this encounter Discharge Instructions * Discharge Instructions* Josh Rasheed PA - 11/21/2018 9:36 EDT Recommend gargling with salt water try using throat lozenges such as Cepacol you could use 5 mg of oxycodone every 4-6 hours with or without Tylenol to help control pain. Strep culture is pending we will treat as probable strep throat at this time * Attachments The following attachments cannot be sent through Care Everywhere. * SORE THROAT (NORWEGIAN) * STREP THROAT (NORWEGIAN) documented in this encounter Medications at Time [...] not cover this medication. There is an nmke-gua-ycaavzy cream or an aeow-sol-kszzccj patch with a lower concentration that is available. Please substitute this if your insurance company does not cover this m 30 Patch 11/01/2018 06/18/2019 metFORMIN (GLUCOPHAGE) 500 mg tablet Take 1,000 mg by mouth daily. 11/26/2019 oxyCODONE (ROXICODONE) 5 mg/5 mL solution Take 5 mL by mouth every 4 hours as needed for Pain. Daily Max: 30 mg 75 mL 11/21/2018 10/01/2019 penicillin v potassium (VEETID) 500 mg tablet Take 1 Tab by mouth 3 times daily for 7 days. 21 Tab 11/21/2018 11/28/2018 VIT 91/IRON/FOLIC/DHA ( + DHA ORAL) Take by mouth. 06/06 UNKNOWN TO PATIENTIndications:bi rth control Take by mouth. 10/01/2019 documented as of this encounter Ordered Prescriptions Prescription Sig Dispensed Refills Start Date End Da te oxyCODONE (ROXICODONE) 5 mg/5 mL solution Take 5 mL by mouth every 4 hours as needed for Pain. Daily Max: 30 mg 75 mL 11/21/2018 10/01/2019 penicillin v potassium (VEETID) 500 mg tablet Take 1 Tab by mouth 3 times daily for 7 days. 21 Tab 11/21/2018 11/28/2018 documented in this encounter Discharge Disposition Disposition Code Departure Means Destination Home or Self Care Car Home documented in this encounter ED Notes * Laquita Sheikh, Josh Cali, EUNICE - 11/21/2018 0948 EDT DOS: 11/21/2018 Chief Complaint Patient presents with ??? Sore Throat I think I have strep, my body aches, I think I have a fever. Pt reports feeling like this x 24 hours. 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 HPI The patient is a 33 y.o. female who presents today with Sore Throat (I think I have strep, my bodyaches, I think I have a fever. Pt reports feeling like this x 24 hours. 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 She feels rundown and painful scratchy throat Review of Systems Review of Systems Constitutional: Positive for appetite change and fever. Negative for chills and diaphoresis. HENT: Positive for sore throat and trouble swallowing. Negative for congestion and voice change. Eyes: Negative. Negative for visual disturbance. Respiratory: Negative. Negative for chest tightness and shortness of breath. Cardiovascular: Negative. Negative for chest pain, palpitations and leg swelling. Gastrointestinal: Negative. Negative for abdominal distention and abdominal pain. Endocrine: Negative. Genitourinary: Negative. Negative for dysuria and frequency. Musculoskeletal: Negative. Negative for arthralgias. Skin: Negative. Negative for rash. Allergic/Immunologic: Negative. Negative for immunocompromised state. Neurological: Negative. Negative for dizziness and headaches. Hematological: Negative. Negative for adenopathy. Does not bruise/bleed easily. Psychiatric/Behavioral: Negative. Negative for confusion. All other systems reviewed and are negative. Allergies Allergen Reactions ??? Citalopram Other (See Comments) suicidal ideation, approx 2012 ??? Advil [Ibuprofen] Hives Vital Signs Temp: 37.1 ??C (98.8 ??F) Temp src: Temporal Pulse: (!) 125 Resp: 20 SpO2: 99 % BP: 126/62 BP Device: BP Machine Patient Position: Sitting BP Cuff Location: Right arm Physical Exam Constitutional: She appears well-developed and well-nourished. Patient appears fatigued uncomfortable but nontoxic HENT: Head: Normocephalic and atraumatic. Right Ear: Hearing and external ear normal. Left Ear: Hearing and external ear normal. Nose: Nose normal. Mouth/Throat: Uvula is midline. Uvula swelling present. Posterior oropharyngeal erythema present. No oropharyngeal exudate, posterior oropharyngeal edema or tonsillar abscesses. Eyes: Pupils are equal, round, and reactive to light. Right eye exhibits no discharge. Left eye exhibits no discharge. Neck: Normal range of motion. Neck supple. No tracheal deviation present. Submandibular and tonsillar anterior multiple nodes approximately 1 cm bilateral Cardiovascular: Normal rate, regular rhythm and normal heart sounds. Pulmonary/Chest: Breath sounds normal. No respiratory distress. Abdominal: Soft. There is no tenderness. Musculoskeletal: Normal range of motion. Lymphadenopathy: She has cervical adenopathy. Neurological: She is alert. She has normal strength. No sensory deficit. Skin: Skin is warm. No rash noted. Psychiatric: She has a normal mood and affect. Nursing note and vitals reviewed. RESULTS EKG orders: None Radiology orders: None Procedures ED COURSE A medical screening exam was performed. Strep culture sent we will treat as possible strep with penicillin oxycodone elixir and PCP follow-up as needed Final diagnoses: Pharyngitis, unspecified etiology DISPOSITION: Discharged The patient's pain was managed to an adequate level weighing risk vs. benefit of further medications. Upon departure from the Emergency Department, the patient's pain was on a zero to ten scale. Any further pain treatment will be at the discretion of the provider following up with the patient based on their clinical assessment. Condition at departure from the Emergency Department: Good PCP: Benita Sol was available for supervision. 11/21/2018 9:48 No flowsheet data found. * Judi Gomes, RN - 11/21/2018 0928 EDT Culture obtained and sent to lab for analysis. Pt offered hurricane spray. Two sprays to throat to ease pain. documented in this encounter Plan of Treatment Upcoming Encounters Date Type Department Care Team (Late st Contact Info) Description 02/21/2024 9:45 EDT Office Visit [facility] Adult Primary Care - [address] [phone] Carrington Calderon MD [address] [place] [phone] 02/27/2024 8:30 EDT Telemedicine [facility] Sleep Program - [address] [phone] Rn, Sleep 02/29/2024 10:30 EDT Appointment [facility] Radiology Nuclear Medicine and PET [address] [phone] 02/29/2024 14:30 EDT Appointment [facility] Radiology Nuclear Medicine and [address] [phone] 03/01/2024 8:00 EDT Appointment [facility] Radiology Nuclear Medicine and [address] [id number] 03/01/2024 9:30 EDT Appointment [facility] Radiology Nuclear Medicine and PET [address] [phone] documented as of this encounter Procedures Procedure Name Priority Date/Time Associated Diagnosis Comments GROUP A STREP CULTURE Routine 11/21/2018 9:25 EDT documented in this encounter Results * PHARYNGITIS CULTURE (11/21/2018 9:25 EDT) Result Mod STREPTOCOCCUS, BETA HEMOLYTIC GROUP A (STREPTOCOCCUS PYOGENES) 11/22/2018 13:12 EDT [facility] Specimen of unknown material (specimen) ENTIRE THROAT / Unknown 11/21/2018 9:25 EDT 11/21/2018 10:17 EDT Comment:Specimen submitted o n a flocked swab. Benita Sol MD MICROBIOLOGY - GENER AL ORDERABLES [facility] [address] [place] [address] documented in this encounter Visit Diagnoses Diagnosis Pharyngitis, unspecified etiology- Primary documented in this encounter Administered Medications Inactive Administered Medications - up to 3 most recent administrations Medication Order MAR Action Action Date Dose Rate Site dexaMETHasone (DECADRON) injection 10 mg 10 mg, oral, NOW X1, 1 dose, On 11/21/18 at 0945, STAT Given 11/21/2018 9:43 EDT 10 mg oxyCODONE (ROXICODONE) solution 5 mg 5 mg, oral, NOW X1, 1 dose, On 11/21/18 at 0945, STAT Given 11/21/2018 9:43 EDT 5 mg documented in this encounter Active and Recently Administered Medications Times are shown in EDT. Scheduled Medication Order 11/19/2018 11/20/2018 11/21/2018 dexaMETHasone (DECADRON) injection 10 mg (COMPLETED) 10 mg, oral, NOW X1, 1 dose, On 11/21/18 at 0945, STAT 0943 (Given - Provid er: Judi Gomes RN) oxyCODONE (ROXICODONE) solution 5 mg (COMPLETED) 5 mg, oral, NOW X1, 1 dose, On 11/21/18 at 0945, STAT 0943 (Given - Provid er: Judi Gomes RN) documented in this encounter Care Teams Beautician Apprentice Relationship Specialty Start Date End Date Benita Shafer NP PCP - General 08/22/18 06/17/19 documented as of this encounter
--- OUTSIDE RECORDS SUMMARY | 2023-12-16 00:45 | XMS_ITS | Encounter Summary ---
Author Organization [facility] Address [address] [place] [address] Care Team Providers Care Site Supervising Technical Operator Name Role Phone Benita Shafer GREEN TIRE INSPECTOR Primary Care Provider [phone] Reason for Visit * Reason Onset Date Comments Labs Only 11/09/2018 Encounter Details Date Type Department Care Team (Late st Contact Info) Description 11/09/2018 Telephone [facility] Women's Services - [address] [address] Susana Tomlinson, RN Labs Only Social History Tobacco [...] Telephone Encounter - Susana Tomlinson, RN - 11/09/2018 1318 EDT Non-identified VM, left general message: Nurse calling from [facility] RESIDENTIAL INTERIOR DESIGNER clinic, calling to check in & see how you are doing, also to remind you to get your blood work done, ok to get it drawn at [facility] to let us know when done & how you are doing. documented in this encounter Plan of Treatment Upcoming Encounters Date Type Department Care Team (Late st Contact Info) Description 02/21/2024 9:45 EDT Office Visit [facility] Adult Primary Care - [address] [address] Carrington Calderon MD [address] [phone] 02/27/2024 8:30 EDT Telemedicine [facility] Sleep Program - [address] [address] Rn, Sleep 02/29/2024 10:30 EDT Appointment [facility] Radiology Nuclear Medicine and PET [address] [id number] 02/29/2024 14:30 EDT Appointment [facility] Radiology Nuclear Medicine and PET [address] [id number] 03/01/2024 8:00 EDT Appointment [facility] Radiology Nuclear Medicine and PET [address] [phone] 03/01/2024 9:30 EDT Appointment [facility] Radiology Nuclear Medicine and PET [address] [phone] documented as of this encounter Visit Diagnoses Not on filedocumented in this encounter Care Teams Site Supervising Technical Operator Relationship Specialty Start Date End Date Benita Shafer NP PCP - General 08/22/18 06/17/19 documented as of this encounter
--- OUTSIDE RECORDS SUMMARY | 2023-12-16 00:45 | XMS_ITS | Encounter Summary ---
Author Organization [facility] Address [address] [place] [address] Care Team Providers Care Web Content Manager Name Role Phone Benita Shafer GUSTAVO Primary Care Provider [phone] Encounter Details Date Type Department Care Team (Late st Contact Info) Description 11/10/2018 8:38 EDT - 11/10/2018 23:59 EDT Hospital Encounter [facility] [address] [place] [address] Charu Flynn MD 111 [facility], Level 4 [place] [address] Discharge Disposition: Auto Discharge Social History Tobacco Use Types Packs/Day Years [...] as of this encounter Discharge Diagnoses Diagnosis O00.90 Unspecified ectopic without intrauterine -O00.90[ICD-10-CM] documented in this encounter Medications at Time [...] skin at bedtime. 11/26/2019 lancets One Touch DelyoubeQ - Maps [employer] Life or other brand compatible with lancing device and covered by patient's insurance. 100 Each 2 10/19/2018 10/01/2019 lidocaine 5 % (LIDODERM) 5 % patch To area of pain, apply for 12 hours on, then 12 hours off. Some insurance companies do not cover this medication. There is an ljrj-nnd-xrucluw cream or an agrg-wdn-bqrlwxu patch with a lower concentration that is [...] Discharge Disposition Disposition Code Departure Means Destination Auto Discharge Home documented in this encounter Plan of Treatment Upcoming Encounters Date Type Department Care Team (Late st Contact Info) Description 02/21/2024 9:45 EDT Office Visit [facility] Adult Primary Care - [address] [address] Carrington Calderon MD [address] [phone] 02/27/2024 8:30 EDT Telemedicine [facility] Sleep Program - [address] [phone] Rn, Sleep 02/29/2024 10:30 EDT Appointment [facility] Radiology Nuclear Medicine and PET [address] [phone] 02/29/2024 14:30 EDT Appointment [facility] Radiology Nuclear Medicine and PET [address] [phone] 03/01/2024 8:00 EDT Appointment [facility] Radiology Nuclear Medicine and PET [address] [id number] 03/01/2024 9:30 EDT Appointment [facility] Radiology Nuclear Medicine and PET [address] [phone] documented as of this encounter Visit Diagnoses Not on filedocumented in this encounter Care Teams Web Content Manager Relationship Specialty Start Date End Date Benita Shafer NP PCP - General 08/22/18 06/17/19 documented as of this encounter
--- OUTSIDE RECORDS SUMMARY | 2023-12-16 00:45 | XMS_ITS | Encounter Summary ---
Author Organization [facility] Address [address] [place] [address] Care Team Providers Care Reconciliation Clerk Name Role Phone Benita Shafer SMOKING PIPE REPAIRER Primary Care Provider [phone] Reason for Visit * Reason Onset Date Comments Results 12/04/2018 Encounter Details Date Type Department Care Team (Late st Contact Info) Description 12/04/2018 Orders Only [facility] Women's Services - [address] [address] Lisseth Valdez RN Social History Tobacco Use Types Packs/Day [...] as of this encounter Progress Notes * Lisseth Briscoe, MARCELO - 12/04/2018 1407 EDT Received Fax from [facility], results entered, will have faxed document scanned. documented in this encounter Plan of Treatment Upcoming Encounters Date Type Department Care Team (Late st Contact Info) Description 02/21/2024 9:45 EDT Office Visit [facility] Adult Primary Care - [address] [address] Carrington Calderon MD [address] [place] [phone] 02/27/2024 8:30 EDT Telemedicine [facility] Sleep Program - [address] [phone] Rn, Sleep 02/29/2024 10:[address] [facility] Radiology Nuclear Medicine and PET [address] [phone] 02/29/2024 14:[address] [facility] Radiology Nuclear Medicine and PET [address] [phone] 03/01/2024 8:[address] [facility] Radiology Nuclear Medicine and PET [address] [phone] 03/01/2024 9:[address] [facility] Radiology Nuclear Medicine and PET [address] [phone] documented as of this encounter Procedures Procedure Name Priority Date/Time Associated Diagnosis Comments QUANT BETA HCG, Routine 12/03/2018 documented in this encounter Results * QUANT BETA HCG, (12/03/2018) HCG, External 41.94 mIU/ml [facility] Comment:non- <5 Blood specimen (specimen) 12/03/2018 Historical Provider MD CHEMISTRY & BLOOD GAS ORDERABLES [facility] documented in this encounter Visit Diagnoses Not on filedocumented in this encounter Care Teams Reconciliation Clerk Relationship Specialty Start Date End Date Benita Shafer NP PCP - General 08/22/18 06/17/19 documented as of this encounter
--- OUTSIDE RECORDS SUMMARY | 2023-12-16 00:45 | XMS_ITS | Encounter Summary ---
Author Organization [facility] Address [address] [place] [address] Care Team Providers Care Inside Sales Consultant Name Role Phone Benita Shafer DIRECTOR OPERATIONS Primary Care Provider [phone] Reason for Visit * Reason Onset Date Comments Problem 10/31/2018 Encounter Details Date Type Department Care Team (Late st Contact Info) Description 10/31/2018 Orders Only [facility] Women's Services - [facility] [address] [place] [address] Susana Tomlinson RN 10 weeks gestation of (Primary Dx) Social History [...] Progress Notes * Susana Tomlinson, RN - 10/31/2018 1110 EDT HOLD lav ordered documented in this encounter Plan of Treatment Upcoming Encounters Date Type Department Care Team (Late st Contact Info) Description 02/21/2024 9:45 EDT Office Visit [facility] Adult Primary Care - [address] [address] Carrington Calderon MD [address] [phone] 02/27/2024 8:30 EDT Telemedicine [facility] Sleep Program - [address] [address] Rn, Sleep 02/29/2024 10:30 EDT Appointment [facility] Radiology Nuclear Medicine and PET - [address] [address] 02/29/2024 14:30 EDT Appointment [facility] Radiology Nuclear Medicine and PET - [address] [phone] 03/01/2024 8:00 EDT Appointment [facility] Radiology Nuclear Medicine and PET [address] [phone] 03/01/2024 9:30 EDT Appointment [facility] Radiology Nuclear Medicine and PET [address] [address] documented as of this encounter Visit Diagnoses Diagnosis 10 weeks gestation of - Primary state, incidental documented in this encounter Care Teams Inside Sales Consultant Relationship Specialty Start Date End Date Benita Shafer NP PCP - General 08/22/18 06/17/19 documented as of this encounter
--- OUTSIDE RECORDS SUMMARY | 2023-12-16 00:45 | XMS_ITS | Encounter Summary ---
Author Organization [facility] Address [address] [place] [address] Care Team Providers Care Promotion Specialist Name Role Phone Benita Shafer INFORMATION MANAGEMENT SPECIALIST Primary Care Provider [phone] Reason for Visit * Reason Onset Date Comments Results 12/13/2018 Encounter Details Date Type Department Care Team (Late st Contact Info) Description 12/13/2018 Telephone [facility] Women's Services - [address] [address] Susana Tomlinson, RN Results Social History Tobacco [...] Telephone Encounter - Susana Tomlinson RN - 12/13/2018 1013 EDT Spoke with [facility] lab: Cristy got her blood drawn thsi am, however the machine that is used to process BHCG is not working, they anticipate that it will be fixed tomorrow. documented in this encounter Plan of Treatment Upcoming Encounters Date Type Department Care Team (Late st Contact Info) Description 02/21/2024 9:45 EDT Office Visit [facility] Adult Primary Care - [address] [phone] Carrington Calderon MD [address] [place] [address] [phone] 02/27/2024 8:30 EDT Telemedicine [facility] Sleep Program - [address] [phone] Rn, Sleep 02/29/2024 10:[address] [facility] Radiology Nuclear Medicine and [address] [phone] 02/29/2024 14:[address] [facility] Radiology Nuclear Medicine and [address] [phone] 03/01/2024 8:[address] [facility] Radiology Nuclear Medicine and PET [address] [phone] 03/01/2024 9:[address] [facility] Radiology Nuclear Medicine and [address] [phone] documented as of this encounter Visit Diagnoses Not on filedocumented in this encounter Care Teams Promotion Specialist Relationship Specialty Start Date End Date Benita Shafer NP PCP - General 08/22/18 06/17/19 documented as of this encounter
--- OUTSIDE RECORDS SUMMARY | 2023-12-16 00:45 | XMS_ITS | Encounter Summary ---
Author Organization [facility] Address [address] [place] [address] Care Team Providers Care After School Caregiver Name Role Phone Benita Shafer PATRON ATTENDANT Primary Care Provider [phone] Reason for Visit * Reason Onset Date Comments Results 12/04/2018 Encounter Details Date Type Department Care Team (Late st Contact Info) Description 12/04/2018 Telephone [facility] Women's Services - [address] [address] Lisseth Valdez, MARCELO Results Social History Tobacco Use Types [...] Miscellaneous Notes * Telephone Encounter - Lisseth Briscoe, MARCELO - 12/04/2018 1415 EDT LVM for Cristy (unidentified). This is a nurse calling from your providers office, we would liketo check in with you and see how you are doing, we got a result of your blood work and a plan for moving forward, it is still very important that we keep communicating with you about results and plans. we have your appt's scheduled for 12/08 CON @ 0915, 01/03 @ 1300 F/U w/ dr beckwith. Please call us at [phone]. LVM for Cristy stating this is the nurse again, I forgot to tell you that based on your new result we would like for you to repeat your blood work on 12/10. documented in this encounter Plan of Treatment Upcoming Encounters Date Type Department Care Team (Late st Contact Info) Description 02/21/2024 9:45 EDT Office Visit [facility] Adult Primary Care - [address] [phone] Carrington Calderon MD [address] [phone] 02/27/2024 8:30 EDT Telemedicine [facility] Sleep Program - [address] 450991 Rn, Sleep 02/29/2024 10:30 EDT Appointment [facility] Radiology Nuclear Medicine and PET - [address] [phone] 02/29/2024 14:30 EDT Appointment [facility] Radiology Nuclear Medicine and PET [address] 908441 03/01/2024 8:00 EDT Appointment [facility] Radiology Nuclear Medicine and PET [address] 824296 [phone] 03/01/2024 9:30 EDT Appointment [facility] Radiology Nuclear Medicine and PET - [address] [address] documented as of this encounter Visit Diagnoses Not on filedocumented in this encounter Care Teams After School Caregiver Relationship Specialty Start Date End Date Benita Shafer NP PCP - General 08/22/18 06/17/19 documented as of this encounter
--- OUTSIDE RECORDS SUMMARY | 2023-12-16 00:45 | XMS_ITS | Encounter Summary ---
Author Organization [facility] Address [address] [place] [address] Care Team Providers Care Rn Patient Care Name Role Phone Benita Shafer SALES REPRESENTATIVE ADVERTISING Primary Care Provider [phone] Reason for Visit * Reason Onset Date Comments Results 12/25/2018 Encounter Details Date Type Department Care Team (Late st Contact Info) Description 12/25/[address] [facility] Women's Services - [address] [address] Susana Tomlinson, RN Results Social History Tobacco [...] Telephone Encounter - Susana Tomlinson, RN - 12/25/2018 0955 EDT Spoke with [facility] lab, Cristy has not has HCG blood draw sine 12/13/18. Letter sent, removed from [employer]. documented in this encounter Plan of Treatment Upcoming Encounters Date Type Department Care Team (Late st Contact Info) Description 02/21/2024 9:45 EDT Office Visit [facility] Adult Primary Care - [address] 401771 Carrington Calderon MD [address] [phone] 02/27/2024 8:[address] [facility] Sleep Program - [address] [address] Rn, Sleep 02/29/2024 10:30 EDT Appointment [facility] Radiology Nuclear Medicine and PET [address] [address] 02/29/2024 14:30 EDT Appointment [facility] Radiology Nuclear Medicine and PET [address] [phone] 03/01/2024 8:00 EDT Appointment [facility] Radiology Nuclear Medicine and PET [address] 030671 03/01/2024 9:30 EDT Appointment [facility] Radiology Nuclear Medicine and PET [address] 044731 documented as of this encounter Visit Diagnoses Not on filedocumented in this encounter Care Teams Rn Patient Care Relationship Specialty Start Date End Date Benita Shafer NP PCP - General 08/22/18 06/17/19 documented as of this encounter
--- OUTSIDE RECORDS SUMMARY | 2023-12-16 00:45 | XMS_ITS | Encounter Summary ---
Author Organization [facility] Address [address] [place] [address] Care Team Providers Care Dry Press Operator Helper Name Role Phone Benita Shafer INTERNAL MEDICINE HOSPITALIST Primary Care Provider [phone] Encounter Details Date Type Department Care Team (Latest Contact Info) Description 11/03/2018 10:39 EDT - 11/03/2018 23:59 EDT Hospital Encounter [facility] [place] [address] [place] [address] Jonas Ojeda MD [address] [place] [address] [phone] Discharge Disposition: Auto Discharge Social History Tobacco [...] on file documented as of this encounter Discharge Diagnoses Diagnosis N96 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 11/26/2019 lancets One Touch DelAdiCyte or other brand compatible with lancing device and covered by patient's insurance. 100 Each 2 10/19/2018 10/01/2019 lidocaine 5 % (LIDODERM) 5 % patch To area of pain, apply for 12 hours on, then 12 hours off. Some insurance companies do not cover this medication. There is an prfo-fzz-eckjqnt cream or an bzbl-hjr-qhpxmar patch with a lower concentration that is [...] [facility] - [address] [phone] Carrington Calderon MD [address] [phone] 02/27/2024 8:30 EDT Telemedicine [facility] Sleep Program - [address] [phone] Rn, Sleep 02/29/2024 10:30 EDT Appointment [facility] Radiology Nuclear Medicine and PET [address] [address] 02/29/2024 14:30 EDT Appointment [facility] Radiology Nuclear Medicine and PET [address] [address] 03/01/2024 8:00 EDT Appointment [facility] Radiology Nuclear Medicine and PET [address] [address] 03/01/2024 9:30 EDT Appointment [facility] Radiology Nuclear Medicine and PET [address] [address] documented as of this encounter Procedures Procedure Name Priority Date/Time Associated Diagnosis Comments T4, FREE REFLEX Routine 11/03/2018 10:47 EDT T3, TOTAL Routine 11/03/2018 10:47 EDT documented in this encounter Results * T3, TOTAL (11/03/2018 10:47 EDT) T3, Total 111 97 - 169 ng/dl 11/03/2018 14:02 EDT [facility] BLOOD SPECIMEN / Unknown 11/03/2018 10:47 EDT 11/03/2018 11:17 EDT Jonas Ojeda MD CHEMISTRY & BLOOD GA S ORDERABLES [facility] [address] [place] [address] * T4, FREE REFLEX (11/03/2018 10:47 EDT) T4, Free Reflex 1.2 0.8 - 2.2 ng/dl 11/03/2018 13:02 EDT [facility] BLOOD SPECIMEN / Unknown 11/03/2018 10:47 EDT 11/03/2018 11:17 EDT Jonas Ojeda MD CHEMISTRY & BLOOD GA S ORDERABLES [facility] [address] [place] [address] documented in this encounter Visit Diagnoses Not on filedocumented in this encounter Care Teams Dry Press Operator Helper Relationship Specialty Start Date End Date Benita Shafer NP PCP - General 08/22/18 06/17/19 documented as of this encounter
--- OUTSIDE RECORDS SUMMARY | 2023-12-16 00:45 | XMS_ITS | Encounter Summary ---
Author Organization [facility] Address [address] [place] [address] Care Team Providers Care Windows Vmware Administrator Name Role Phone Benita Shafer RETAIL COSMETICS SALES BEAUTY ADVISOR Primary Care Provider Encounter Details Date Type Department Care Team (Late st Contact Info) Description 12/25/2018 Orders Only [facility] Women's Services - [address] 480891 Charu Flynn MD 111 [facility], Level [address] [place] [address] Social History Tobacco Use Types [...] 9:45 EDT Office Visit [facility] Adult Primary Care - [address] [phone] Carrington Calderon MD [address] [phone] 02/27/2024 8:30 EDT Telemedicine [facility] Sleep Program - [address] [phone] Rn, Sleep 02/29/2024 10:30 EDT Appointment [facility] Radiology Nuclear Medicine and PET [address] [phone] 02/29/2024 14:30 EDT Appointment [facility] Radiology Nuclear Medicine and PET [address] 367491 03/01/2024 8:00 EDT Appointment [facility] Radiology Nuclear Medicine and PET [address] 595241 03/01/2024 9:30 EDT Appointment [facility] Radiology Nuclear Medicine and PET [address] [phone] documented as of this encounter Procedures Procedure Name Priority Date/Time Associated Diagnosis Comments QUANT BETA HCG, Routine 12/13/2018 6:27 EDT documented in this encounter Results * QUANT BETA HCG, (12/13/2018 6:27 EDT) HCG, External 13.63 2.39 - 15,000 mIU/mL [facility] Comment:Please see the scann ed report in EPIC for further interpretation. Blood specimen (specimen) 12/13/2018 6:27 EDT Charu Flynn MD CHEMISTRY & BLOO D GAS ORDERABLES [facility] documented in this encounter Visit Diagnoses Not on filedocumented in this encounter Care Teams Windows Vmware Administrator Relationship Specialty Start Date End Date Benita Shafer NP PCP - General 08/22/18 06/17/19 documented as of this encounter
--- OUTSIDE RECORDS SUMMARY | 2023-12-16 00:45 | XMS_ITS | Encounter Summary ---
Author Organization [facility] Address [address] [place] [address] Care Team Providers Care Gift Wrapper Name Role Phone Benita Shafer AUTO TRANSPORT DRIVER Primary Care Provider [phone] Reason for Visit * Reason Onset Date Comments Labs Only 11/17/2018 Encounter Details Date Type Department Care Team (Late st Contact Info) Description 11/17/2018 Telephone [facility] Women's Services - [address] [address] Jordyn Wolfe, RN Labs Only Social History Tobacco Use [...] Telephone Encounter - Jordyn Wolfe RN - 11/20/2018 1042 EDT Call to patient. Left message follow-up leading her know the importance of having her beta-hCG level drawn. Patient was supposed to go to the lab on November 17, 2018 and did not go. I spoke to patient on November 17 and patient stated was good to go to the lab on November 18. Patient has not gone to either [facility] lab or [facility] lab. * Telephone Encounter - Jordyn Wolfe RN - 11/17/2018 1202 EDT Call to patient. I spoke to patient. Patient states that she does not think she will be to get to the lab today but she plans on going to the lab tomorrow morning. . States has to work until 515 today and lab closes at 6 PM. Patient plans to go to the [facility] lab tomorrow morning around 9 AM. She would like to be called with results from the resident team tomorrow. Patient denies any pelvic or abdominal pain at this time. Patient states continues to have small amount of vaginal bleeding. States like a light period . Reviewed that she should either go to the emergency room or call on-call provider if she does develop any pain. * Telephone Encounter - Jordyn Wolfe RN - 11/17/2018 1145 EDT Call to patient has not gone in for her beta-hCG blood work. documented in this encounter Plan of Treatment Upcoming Encounters Date Type Department Care Team (Late st Contact Info) Description 02/21/2024 9:45 EDT Office Visit [facility] Adult Primary Care - [address] [address] Carrington Calderon MD 1 [facility] Level 1 [place] [phone] 02/27/2024 8:30 EDT Telemedicine [facility] Sleep Program - [address] [place] [address] Rn, Sleep 02/29/2024 10:30 EDT Appointment [facility] Radiology Nuclear Medicine and PET [address] [phone] 02/29/2024 14:30 EDT Appointment [facility] Radiology Nuclear Medicine and PET [address] [phone] 03/01/2024 8:00 EDT Appointment [facility] Radiology Nuclear Medicine and PET [address] [phone] 03/01/2024 9:30 EDT Appointment [facility] Radiology Nuclear Medicine and PET [address] [phone] documented as of this encounter Visit Diagnoses Not on filedocumented in this encounter Care Teams Gift Wrapper Relationship Specialty Start Date End Date Benita Shafer NP PCP - General 08/22/18 06/17/19 documented as of this encounter
--- OUTSIDE RECORDS SUMMARY | 2023-12-16 00:45 | XMS_ITS | Encounter Summary ---
Author Organization [facility] Address [address] [place] [address] Care Team Providers Care Night Shift Supervisor Name Role Phone Benita Shafer SENIOR ACCOUNTING SPECIALIST Primary Care Provider [phone] Encounter Details Date Type Department Care Team (Late st Contact Info) Description 12/11/2018 Orders Only [facility] Women's Services - [address] [phone] Charu Flynn MD 111 [facility], Level 4 [phone] Social History Tobacco Use Types Packs/Day [...] [facility] Adult [facility] - [address] [address] Carrington Calderon MD [address] [phone] 02/27/2024 8:30 EDT Telemedicine [facility] Sleep Program - [address] [phone] Rn, Sleep 02/29/2024 10:30 EDT Appointment [facility] Radiology Nuclear Medicine and PET [address] [phone] 02/29/2024 14:30 EDT Appointment [facility] Radiology Nuclear Medicine and PET [address] [phone] 03/01/2024 8:00 EDT Appointment [facility] Radiology Nuclear Medicine and PET [address] [phone] 03/01/2024 9:30 EDT Appointment [facility] Radiology Nuclear Medicine and PET [address] 053261 documented as of this encounter Visit Diagnoses Not on filedocumented in this encounter Care Teams Night Shift Supervisor Relationship Specialty Start Date End Date Benita Shafer NP PCP - General 08/22/18 06/17/19 documented as of this encounter
--- OUTSIDE RECORDS SUMMARY | 2023-12-16 00:45 | XMS_ITS | Encounter Summary ---
Author Organization [facility] Address [address] [place] [address] Care Team Providers Care Prospect Manager Name Role Phone Benita Shafer CHANGE ROOM ATTENDANT Primary Care Provider [phone] Encounter Details Date Type Department Care Team (Latest Contact Info) Description 11/21/2018 Travel Social History Tobacco Use Types Packs/Day [...] Visit [facility] Adult Primary Care [facility] [address] [place] [address] Carrington Calderon MD 1 [facility] 1 [place] [phone] 02/27/2024 8:30 EDT Telemedicine [facility] Sleep Program - [address] [address] Rn, Sleep 02/29/2024 10:30 EDT [facility] - [address] [phone] 02/29/2024 14:30 EDT Appointment [facility] Radiology Nuclear Medicine and PET [address] 674451 03/01/2024 8:00 EDT Appointment [facility] Radiology Nuclear Medicine and PET [address] [phone] 03/01/2024 9:30 EDT Appointment [facility] Radiology Nuclear Medicine and PET [address] [phone] documented as of this encounter Visit Diagnoses Not on filedocumented in this encounter Care Teams Prospect Manager Relationship Specialty Start Date End Date Benita Shafer NP PCP - General 08/22/18 06/17/19 documented as of this encounter
--- OUTSIDE RECORDS SUMMARY | 2023-12-16 00:45 | XMS_ITS | Encounter Summary ---
Author Organization [facility] Address [address] [place] [address] Care Team Providers Care Rn Ent Name Role Phone Benita Shafer GUM REMOVER Primary Care Provider [phone] Encounter Details Date Type Department Care Team (Late st Contact Info) Description 11/03/2018 Phlebotomy Only [facility] - [address] [phone] Adjustment Examiner, Outpatient Recurrent loss; 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 Social History Tobacco Use Types Packs/Day Years [...] 02/21/2024 9:45 EDT Office Visit [facility] Adult Primary Care - [address] [phone] Carrington Calderon MD 1 [facility] Level 1 [place] [phone] 02/27/2024 8:30 EDT Telemedicine [facility] Sleep Program - [address] [place] [address] Rn, Sleep 02/29/2024 10:30 EDT Appointment [facility] Radiology Nuclear Medicine and PET - [address] [address] 02/29/2024 14:30 EDT Appointment [facility] Radiology Nuclear Medicine and PET - [address] [address] 03/01/2024 8:00 EDT Appointment [facility] Radiology Nuclear Medicine and PET - [address] [address] 03/01/2024 9:30 EDT Appointment [facility] Radiology Nuclear Medicine and PET [address] [address] documented as of this encounter Procedures Procedure Name Priority Date/Time Associated Diagnosis Comments THYROID CASCADE Routine 11/03/2018 10:47 EDT Recurrent loss PROLACTIN Routine 11/03/2018 10:47 EDT Recurrent loss HEMOGLOBIN A1C Routine 11/03/2018 10:47 EDT Recurrent loss documented in this encounter Results * HEMOGLOBIN A1C (11/03/2018 10:47 EDT) Hemoglobin A1C 10.9 % 11/03/2018 15:[address] [facility] Comment: Reference Range: <5.7% Normal 5.7-6.4% Prediabetes =>6.5% Diagnostic for diabetes (if confirmed) Goals for glycemic control in diabetes ADA 2017 For non adults with diabetes: ?? Target <7.0% For children and adolescents with type 1 diabetes: ?? Target <7.5% More or less stringent targets may be appropriate for individual patients. Est Avg Glucose 266 mg/dl 9 15:[address] [facility] Comment: eAG represents the A1c result expressed as average glucose in mg/dl. Blood specimen (specimen) BLOOD SPECIMEN / Unknown 11/03/2018 10:47 EDT 11/03/2018 11:17 EDT Jonas Ojeda MD CHEMISTRY & BLOOD GA S ORDERABLES Performing Organization Address [facility] Co de Phone Number [facility] [address] [place] [address] * PROLACTIN (11/03/2018 10:47 EDT) Prolactin 5.4 ng/ml 11/03/2018 13:[address] [facility] Comment: Non-: 2.8-29.2 : 9.7-208.5 Post Menopausal: 1.8-20.3 Blood specimen (specimen) BLOOD SPECIMEN / Unknown 11/03/2018 10:47 EDT 11/03/2018 11:17 EDT Jonas Ojeda MD CHEMISTRY & BLOOD GA S ORDERABLES Performing Organization Address [facility] de Phone Number [facility] [address] [place] [address] * (ABNORMAL) THYROID CASCADE (11/03/2018 10:47 EDT) TSH 0.40(L) 0.47 - 4.68 uIU/ml 11/03/2018 12:[address] [facility] Comment: TSH cascade is not recommended for patients in which pituitary or hypothalamic disorders are suspected. The results of this assay can be falsely lowered due to the consumption of Biotin. Blood specimen (specimen) BLOOD SPECIMEN / Unknown 11/03/2018 10:47 EDT 11/03/2018 11:17 EDT Jonas Ojeda MD CHEMISTRY & BLOOD GA S ORDERABLES Performing Organization Address [facility] Co de Phone Number [facility] [address] [place] [address] documented in this encounter Visit Diagnoses Diagnosis Recurrent loss 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 documented in this encounter Care Teams Rn Ent Relationship Specialty Start Date End Date Benita Shafer NP PCP - General 08/22/18 06/17/19 documented as of this encounter
--- OUTSIDE RECORDS SUMMARY | 2023-12-16 00:45 | XMS_ITS | Encounter Summary ---
Author Organization [facility] Address [address] [place] [address] Care Team Providers Care Lump Maker Name Role Phone Benita Shafer AUTOMOTIVE FLEET SUPERVISOR Primary Care Provider [phone] Reason for Visit * Reason Onset Date Comments Results 12/15/2018 Encounter Details Date Type Department Care Team (Late st Contact Info) Description 12/15/2018 Telephone [facility] Women's Services - [address] [address] Susana Tomlinson, RN Results Social History Tobacco [...] Telephone Encounter - Susana Tomlinson RN - 12/15/2018 0859 EDT Non-identified VM, left general message: nurse calling from [facility] Women???s clinic, re: blood work results, level has decreased, plan per MD team is to repeat blood work in one week from last (12/20). Also reminder that you have an appt scheduled for 02/24/19 @ 9am, also appt on 01/03 but will will check with provider to determine if appropriate. Please call the HIM CLERK nurses at [phone]. When Cristy calls will give details: HCG 12/13/18 = 13.63, down from 41.94 on 12/03. Will reach out to Dr. Ojeda to determine if should keep appt with him on 01/03, as has not yet had M consult (missed 12/08 appt, now rescheduled for 03/02/19 @ 9am with Dr. Prakash). External results entered from faxed documentation, will have documentation scanned. documented in this encounter Plan of Treatment Upcoming Encounters Date Type Department Care Team (Late st Contact Info) Description 02/21/2024 9:45 EDT Office Visit [facility] Adult Primary Care - [address] [phone] Carrington Calderon MD 1 [facility] [address] [place] [phone] 02/27/2024 8:30 EDT Telemedicine [facility] Sleep Program - [address] [phone] Rn, Sleep 02/29/2024 10:[address] [facility] Radiology Nuclear Medicine and PET - [address] [phone] 02/29/2024 14:[address] [facility] Radiology Nuclear Medicine and PET - [address] [phone] 03/01/2024 8:[address] [facility] Radiology Nuclear Medicine and PET [address] [phone] 03/01/2024 9:[address] [facility] Radiology Nuclear Medicine and PET [address] [address] documented as of this encounter Procedures Procedure Name Priority Date/Time Associated Diagnosis Comments QUANT BETA HCG, Routine 12/13/2018 6:27 EDT documented in this encounter Results * QUANT BETA HCG, (12/13/2018 6:27 EDT) HCG, External 13.63 2.39 - 15,000 mIU/mL [facility] Blood specimen (specimen) 12/13/2018 6:27 EDT Charu Flynn MD CHEMISTRY & BLOO D GAS ORDERABLES [facility] documented in this encounter Visit Diagnoses Not on filedocumented in this encounter Care Teams Lump Maker Relationship Specialty Start Date End Date Benita Shafer NP PCP - General 08/22/18 06/17/19 documented as of this encounter
--- OUTSIDE RECORDS SUMMARY | 2023-12-16 00:45 | XMS_ITS | Encounter Summary ---
Author Organization [facility] Address [address] [place] [address] Care Team Providers Care Consumer Safety Officer Name Role Phone Benita Shafer FRONT MAN Primary Care Provider [phone] Reason for Visit * Reason Onset Date Comments Other 11/21/2018 Encounter Details Date Type Department Care Team (Late st Contact Info) Description 11/21/2018 Telephone [facility] Women's Services - [address] [address] Jordyn Wolfe, MARCELO Other Social History Tobacco [...] Encounter - Jordyn Wolfe RN - 11/21/2018 1029 EDT Call to patient. I spoke to patient. Patient states that she has been sick with possible strep throat and had forgotten to go in for her blood work. Patient states that she will go in to have her beta-hCG checked today at [facility]. I will ensure that the order is in place. documented in this encounter Plan of Treatment Upcoming Encounters Date Type Department Care Team (Late st Contact Info) Description 02/21/2024 9:45 EDT Office Visit [facility] Adult Primary Care - [address] [phone] Carrington Calderon MD [address] [place] [phone] 02/27/2024 8:30 EDT Telemedicine [facility] Sleep Program - [address] [phone] Rn, Sleep 02/29/2024 10:30 EDT Appointment [facility] Radiology Nuclear Medicine and PET - [address] [phone] 02/29/2024 14:30 EDT Appointment [facility] Radiology Nuclear Medicine and PET [address] [phone] 03/01/2024 8:00 EDT Appointment [facility] Radiology Nuclear Medicine and PET [address] [phone] 03/01/2024 9:30 EDT Appointment [facility] Radiology Nuclear Medicine and PET [address] [phone] documented as of this encounter Visit Diagnoses Not on filedocumented in this encounter Care Teams Consumer Safety Officer Relationship Specialty Start Date End Date Benita Shafer NP PCP - General 08/22/18 06/17/19 documented as of this encounter
--- OUTSIDE RECORDS SUMMARY | 2023-12-16 00:45 | XMS_ITS | Encounter Summary ---
Author Organization [facility] Address [address] [place] [address] Care Team Providers Care Coil Cleaner Name Role Phone Benita Shafer MC KAY STITCHER Primary Care Provider [phone] Reason for Visit * Reason Onset Date Comments Labs Only 12/11/2018 Encounter Details Date Type Department Care Team (Late st Contact Info) Description 12/11/[address] [facility] Women's Services - [address] [address] Susana Tomlinson, RN Labs Only Social History [...] Telephone Encounter - Susana Tomlinson, RN - 12/11/2018 1108 EDT Non-identified VM, left general message: nurse calling from [facility] Women???s clinic, re: blood work, were able to have blood work done last week from labs drawn at [facility], plan was repeat blood work yesterday 12/10, need to follow this to zero, very important to have this follow-up. Please call the REAL ESTATE COORDINATOR nurses at [phone]. documented in this encounter Plan of Treatment Upcoming Encounters Date Type Department Care Team (Late st Contact Info) Description 02/21/2024 9:[address] [facility] Adult Primary Care - [address] [phone] Carrington Calderon MD [address] [phone] 02/27/2024 8:[address] [facility] Sleep Program - [address] [phone] Rn, Sleep 02/29/2024 10:30 EDT Appointment [facility] Radiology Nuclear Medicine and PET [address] [phone] 02/29/2024 14:30 EDT Appointment [facility] Radiology Nuclear Medicine and PET - [address] [phone] 03/01/2024 8:00 EDT Appointment [facility] Radiology Nuclear Medicine and PET [address] [phone] 03/01/2024 9:30 EDT Appointment [facility] Radiology Nuclear Medicine and PET [address] [phone] documented as of this encounter Visit Diagnoses Not on filedocumented in this encounter Care Teams Coil Cleaner Relationship Specialty Start Date End Date Benita Shafer NP PCP - General 08/22/18 06/17/19 documented as of this encounter
--- OUTSIDE RECORDS SUMMARY | 2023-12-16 00:45 | XMS_ITS | Encounter Summary ---
Author Organization [facility] Address [address] [place] [address] Care Team Providers Care Manganese Breaker Name Role Phone Benita Shafer SENIOR CLINICAL DATA ANALYST Primary Care Provider [phone] Reason for Visit * Reason Comments Social Work Encounter Details Date Type Department Care Team (Late st Contact Info) Description 12/15/2018 Community Health Team [facility] Women's Services - [address] [address] Kylah Bose Social History Tobacco Use Types Packs/Day Years [...] of this encounter Progress Notes * Kylah Bose - 12/15/2018 0937 EDT Patient referred to I by Dr. Ojeda. Patient did not respond to Admins attempts to schedule initial visit. SW called patient with the goal of scheduling a phone consult. Patient was at work and couldn't talk. SW attempted to text patient with SW contact info and text repeatedly came back as unde liverable. DOTTIE Diaz will check in with patient during her next Return To Factory Clerk appointment with Dr. Ojeda on 01/03. [facility] Total Time: 5 minutes phone, 5 minutes charting Referral: n/a Follow up: n/a Status: pending documented in this encounter Plan of Treatment Upcoming Encounters Date Type Department Care Team (Steph st Contact Info) Description 02/21/2024 9:45 EDT Office Visit [facility] Adult Primary Care - [address] [phone] Carrington Calderon MD [address] [place] [phone] 02/27/2024 8:30 EDT Telemedicine [facility] Sleep Program - [address] [phone] Rn, Sleep 02/29/2024 10:30 EDT Appointment [facility] Radiology Nuclear Medicine and PET [address] [phone] 02/29/2024 14:30 EDT Appointment [facility] Radiology Nuclear Medicine and PET - [address] [phone] 03/01/2024 8:00 EDT Appointment [facility] Radiology Nuclear Medicine and PET [address] [phone] 03/01/2024 9:30 EDT Appointment [facility] Radiology Nuclear Medicine and PET [address] [phone] documented as of this encounter Visit Diagnoses Not on filedocumented in this encounter Care Teams Manganese Breaker Relationship Specialty Start Date End Date Benita Shafer NP PCP - General 08/22/18 06/17/19 documented as of this encounter
--- OUTSIDE RECORDS SUMMARY | 2023-12-16 00:45 | XMS_ITS | Encounter Summary ---
Author Organization [facility] Address [address] [place] [address] Care Team Providers Care Crab Butcher Name Role Phone Benita Shafer GUSTAVO Primary Care Provider [phone] Reason for Visit * Reason Onset Date Comments Appointment Related 12/11/2018 Encounter Details Date Type Department Care Team (Late st Contact Info) Description 12/11/2018 Telephone [facility] Obstetrics & Midwifery - [facility] [address] [place], [place] [phone] Nohemy Sales MD [address] [facility], [address] [place] [phone] Appointment Related Social History Tobacco [...] encounter Miscellaneous Notes * Telephone Encounter - HobsonDonna - 12/11/2018 1429 EDT LVM for patient offering to reschedule no showed appt. documented in this encounter Plan of Treatment Upcoming Encounters Date Type Department Care Team (Late st Contact Info) Description 02/21/2024 9:45 EDT Office Visit [facility] Adult Primary Care - [address] [phone] Carrington Calderon MD [address] [place] [phone] 02/27/2024 8:30 EDT Telemedicine [facility] Sleep Program - [address] [phone] Rn, Sleep 02/29/2024 10:30 EDT Appointment [facility] Radiology Nuclear Medicine and [address] [phone] 02/29/2024 14:30 EDT Appointment [facility] Radiology Nuclear Medicine and PET [address] [phone] 03/01/2024 8:00 EDT Appointment [facility] Radiology Nuclear Medicine and PET [address] [phone] 03/01/2024 9:30 EDT Appointment [facility] Radiology Nuclear Medicine and PET [address] [phone] documented as of this encounter Visit Diagnoses Not on filedocumented in this encounter Care Teams Crab Butcher Relationship Specialty Start Date End Date Benita Shafer NP PCP - General 08/22/18 06/17/19 documented as of this encounter
--- OUTSIDE RECORDS SUMMARY | 2023-12-16 00:45 | XMS_ITS | Encounter Summary ---
Author Organization [facility] Address [address] [place] [address] Care Team Providers Care Director Of Customer Service Name Role Phone Benita Shafer CUSTOMS DIRECTOR Primary Care Provider [phone] Reason for Visit * Reason Onset Date Comments Labs Only 12/20/2018 Encounter Details Date Type Department Care Team (Late st Contact Info) Description 12/20/2018 Telephone [facility] Women's Services - [address] [address] Susana Tomlinson, RN Labs Only Social History [...] Telephone Encounter - Susana Tomlinson RN - 12/22/2018 0931 EDT Non-identified VM, left general message: nurse calling from [facility] Women???s clinic, re: bloodwork that was due Wednesday 12/20, spoke with lab last bloodwork was done 12/13, very important to get the blood work done, can change day of blood draw if would be better to get this done on . Please call the PHARMACIST'S AIDE nurses at [phone]. This is the 3rd call to her. * Telephone Encounter - Michelle Sanchez RN - 12/21/2018 0904 EDT LM asking pt to call PHARMACIST'S AIDE triage to f/u. If calls back, will discuss moving blood draw for HCG to Tuesday, as pt is off work on that day. TC to [facility]; confirmed that pt has not come to lab as of 1. * Telephone Encounter - Jordyn Wolfe RN - 12/20/2018 1653 EDT Call to [facility] lab. Patient has not gone in for blood work as of yet. Will have nurse call her tomorrow to follow-up if she has not gone in today. * Telephone Encounter - Susana Tomlinson RN - 12/20/2018 1326 EDT Spoke with lab @ [facility]: Crist[facility]. documented in this encounter Plan of Treatment Upcoming Encounters Date Type Department Care Team (Late st Contact Info) Description 02/21/2024 9:45 EDT Office Visit [facility] Adult Primary Care - [address] [address] Carrington Calderon MD [address] [phone] 02/27/2024 8:30 EDT Telemedicine [facility] Sleep Program - [address] [phone] Rn, Sleep 02/29/2024 10:30 EDT Appointment [facility] Radiology Nuclear Medicine and PET - [address] [phone] 02/29/2024 14:30 EDT Appointment [facility] Radiology Nuclear Medicine and PET [address] [phone] 03/01/2024 8:00 EDT Appointment [facility] Radiology Nuclear Medicine and PET [address] [phone] 03/01/2024 9:30 EDT Appointment [facility] Radiology Nuclear Medicine and PET [address] [phone] documented as of this encounter Visit Diagnoses Not on filedocumented in this encounter Care Teams Director Of Customer Service Relationship Specialty Start Date End Date Benita Shafer NP PCP - General 08/22/18 06/17/19 documented as of this encounter
--- OUTSIDE RECORDS SUMMARY | 2023-12-16 00:46 | XMS_ITS | Encounter Summary ---
Author Organization [facility] Address [address] [place] [address] Care Team Providers Care Human Resources Training Manager Name Role Phone None, Provider Primary Care Provider Unavailabl e Reason for Visit * Reason Comments Eye Problem Corneal abrasion rig ht eye, happened Tuesday morning upon awakening. No CL wear. No trauma recalled. Started eymycin ointment QID night in ER. Reduced pain, VA still blurred. Encounter Details Date Type Department Care Team (Late st Contact Info) Description 07/30/2016 12:30 EST Office Visit [facility] Ophthalmology - [address] [address] Broderick Schwartz MD [address] [place] [address], [address] [place] [phone] Social History Tobacco Use Types Packs/Day Years Used Date Smoking Tobacco: Every Day Cigarettes Smokeless Tobacco: Never Alcohol Use Standard Drinks/Week Comments No 0 (1 standard drink = 0.6 oz pur e alcohol) very rare Sex and Gender Information Value Date Recorded Sex Assigned at Not on file Gender Identity Female 06/18/2019 8:54 EST Sexual Orientation Not on file documented as of this encounter Progress Notes * Broderick Schwartz MD - 07/30/2016 1230 EST Chief Complaint Patient presents with ??? Eye Problem Corneal abrasion right eye, happened Tuesday morning upon awakening. No CL wear. No trauma recalled. Started eymycin ointment QID night in ER. Reduced pain, VA still blurred. HPI :The patient is a 31 y.o. female Right Eye: Blurred Vision, Eyelid Swelling, Redness Left Eye: NL Visual Aid: Glasses Current Rx Age Location: Right eye Pain: 0 - No pain Quality: Severity: Duration: Days Timing: Constant Lasts: Continuous Context: K abrasion right eye Modifying factors: Began emycin QID right eye on night Associated Signs & Symptoms: Attestation: ROS Constitutional: NL ENT/Mouth NL Cardiovascular: NL Respiratory: NL Gastrointestinal: NL Genitourinary: NL Musculoskeletal: NL Integumentary: NL Neurologic: NL Psychiatric: NL Endocrine: Diabetes Hematologic: NL Immunologic: Director Export: Exposures: Other: Attestation: Allergies include: Citalopram and Advil [ibuprofen] Patient Active Problem List Diagnosis ??? Obesity ??? Migraine with aura and without status migrainosus, not intractable ??? Anxiety and depression ??? Type 2 diabetes mellitus ??? Spontaneous miscarriage ??? Chronic left ear pain ??? Family history of rheumatoid arthritis Outpatient Prescriptions Marked as Taking for the 07/30/16 encounter (Office Visit) with Maribell Schwartz MD Medication Sig ??? metFORMIN (GLUCOPHAGE) 500 mg tablet Take 1 Tab by mouth 2 times daily. Past Medical History: Diagnosis Date ??? Depression ??? Diabetes ??? Diabetes mellitus ??? Migraine, unspecified, without mention of intractable migraine without mention of status migrainosus ??? Obesity, unspecified ??? Rh negative state in antepartum period Past Surgical History: Procedure Laterality Date ??? 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 OTHER SURGICAL HISTORY tailbone (mostlikely pilonidal cyst) Family History Problem Relation Age of Onset ??? Diabetes Mother ??? Diabetes Maternal Grandmother ??? Diabetes Maternal Grandfather ??? Diabetes Paternal Grandmother ??? Diabetes Paternal Grandfather Patient reports that she has been smoking Cigarettes. She has been smoking about 0.25 packs per day. She has never used smokeless tobacco. She reports that she uses illicit drugs, including Marijuana. She reports that she does not drink alcohol. Recent HbA1c: Lab Results Component Value Date HGBA1C 11.2 07/15/2016 Base Eye Exam Visual Acuity (Snellen - Linear) Right Left Dist cc 20/70 20/25 Dist ph cc 20/60 Correction: Glasses Tonometry (Applanation, 12:48) Right Left Pressure 22 Pupils Dark Light Right 5 4 Left 5 4 Extraocular Movement Right Left Result Full Full Neuro/Psych Oriented x3: Yes Mood/Affect: Normal Slit Lamp and Fundus Exam External Exam Right Left External Normal, no adenopathy Normal Slit Lamp Exam Right Left Lids/Lashes Normal, UL everted with no FB noted Normal Conjunctiva/Sclera White and quiet White and quiet Cornea Scattered epi defects in peripheral zone, nasal > temp, no infiltrate, no dendrite Clear Anterior Chamber Deep and quiet Deep and quiet Iris Round and reactive Round and reactive Lens Clear Clear Vitreous Clear Clear Fundus Exam Right Left C/D Ratio 0.25 0.2 Macula Normal Normal Vessels Normal Normal IMPRESSION & PLAN: 1. 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 I have reviewed the meds, allergies, and problem list. I performed my own HPI and reviewed the ROS. I personally completed the exam. The patient was instructed to call our office or go to emergency room if worse vision, worse symptoms, or new/other concerns arise. Broderick Schwartz MD I am scribing for Dr. Schwartz, while he is performing the service. Broderick Schwartz MD documented in this encounter Plan of Treatment Upcoming Encounters Date Type Department Care Team (Late st Contact Info) Description 02/21/2024 9:45 EDT Office Visit [facility] Adult Primary Care - [address] [phone] Carrington Calderon MD 1 [facility] Level [address] [place] [phone] 02/27/2024 8:30 EDT Telemedicine [facility] Sleep Program - [address] [place] [address] [place] [address] Rn, Sleep 02/29/2024 10:30 EDT Appointment [facility] Radiology Nuclear Medicine and PET [address] [address] 02/29/2024 14:30 EDT Appointment [facility] Radiology Nuclear Medicine and PET - [address] [address] 03/01/2024 8:00 EDT Appointment [facility] Radiology Nuclear Medicine and PET [address] [phone] 03/01/2024 9:30 EDT Appointment [facility] Radiology Nuclear [facility] and PET [address] [address] documented as of this encounter Visit Diagnoses Diagnosis Cornea abrasion, right, initial encounter- Primary documented in this encounter Eye Exam Visual Acuity (Snellen - Linear) Right eye Left eye Dist cc 20/70 20/25 Dist ph cc 20/60 Correction: Glasses Tonometry (Applanation, 12:48) Right eye Left eye Pressure 22 Pupils Dark Light Right eye 5 4 Left eye 5 4 Extraocular Movement Right eye Left eye Full Full Neuro/Psych Oriented x3: Yes Mood/Affect: Normal External Exam Right eye Left eye External Normal, no adenopathy Normal Slit Lamp Exam Right eye Left eye Lids/Lashes Normal, UL everted with no FB no sharyn Normal Conjunctiva/Sclera White and quiet White and genoveva et Cornea Scattered epi defect s in peripheral zone, nasal > temp, no infiltrate, no dendrite Clear Anterior Chamber Deep and quiet Deep and quiet Iris Round and reactive Round and elise ctive Lens Clear Clear Vitreous Clear Clear Fundus Exam Right eye Left eye C/D Ratio 0.25 0.2 Macula Normal Normal Vessels Normal Normal Care Teams Human Resources Training Manager Relationship Specialty Start Date End Date None, Provider PCP - General 03/08/16 08/21/18 documented as of this encounter
--- OUTSIDE RECORDS SUMMARY | 2023-12-16 00:46 | XMS_ITS | Encounter Summary ---
Author Organization [facility] Address [address] [place] [address] Care Team Providers Care Ross Furnace Operator Name Role Phone None, Provider Primary Care Provider Unavailabl e Reason for Visit * Reason Comments Otalgia pt c/o left sided ea r pain and headache. has tried tylenol OTC without relief. Hyperglycemia patient reports her last FS was 369, takes metformin but is out now. she states she is supposed to take insulin but im workin gwith my insurance for it right now. Encounter Details Date Type Department Care Team (Late st Contact Info) Description 12/04/2016 20:46 EDT - 12/05/2016 2:52 EDT Emergency [facility] Emergency Department - [address] [address] Benita Sol MD [address] [place] [address], [address] [place] [address] Emergency, MD Ekaterina Type 2 diabetes mellitus with hyperglycemia, with long-term current use of insulin ([facility]) (Primary Dx) Discharge Disposition: Home or Self [...] Sign Reading Time Taken Comments Blood Pressure 102/74 12/04/20160 EDT Pulse 98 12/04/20162329 EDT Temperature 36.4 ??C (97.5 ??F) 12/04/20162052 EDT Respiratory Rate 18 12/04/20162329 EDT Oxygen Saturation 100% 12/04/20162329 EDT Inhaled Oxygen Concentration - - Weight 106.6 kg (235 lb) 12/04/20162052 EDT Height 162.6 cm (5' 4) 12/04/20162052 EDT Body Mass Index 40.34 12/04/20162052 EDT documented in this encounter Discharge Diagnoses Diagnosis H66.002 Acute suppurative otitis media without spontaneous rupture of ear drum, left ear-H66.002[ICD-10-CM] F17.210 Nicotine dependence, cigarettes, uncomplicated-F17.210[ICD-10-CM] E11.65 Type 2 diabetes mellitus with hyperglycemia-E11.65[ICD-10-CM] Z91.14 Patient's other noncompliance with medication regimen-Z91.14[ICD-10-CM] Z88.6 Allergy status to analgesic agent status-Z88.6[ICD-10-CM] Z79.4 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 Please see a primary care doctor [facility]. You can call from our list of accepting providers. Continue to take your Lantus. This is very important. * Attachments The following attachments cannot be sent through Care Everywhere. * DIABETES: TYPE 2: METFORMIN: GENERAL INFO ([facility]) * DIABETES DIET GUIDELINES: GENERAL INFO ([employer]MRO) documented in this encounter Medications at Time of Discharge Medication Sig Dispensed Refills Start Date End Date amoxicillin (AMOXIL) 500 mg capsule Take 1 Cap by mouth 3 times daily for 10 days. 30 Cap 12/05/2016 12/15/2016 metFORMIN (GLUCOPHAGE) 500 mg tablet Take 1 Tab by mouth 2 times daily for 30 days. 180 Tab 1 12/05/2016 01/04/2017 documented as of this encounter Ordered Prescriptions Prescription Sig Dispensed Refills Start Date End Da te metFORMIN (GLUCOPHAGE) 500 mg tablet Take 1 Tab by mouth 2 times daily for 30 days. 180 Tab 1 12/05/2016 01/04/2017 amoxicillin (AMOXIL) 500 mg capsule Take 1 Cap by mouth 3 times daily for 10 days. 30 Cap 12/05/2016 12/15/2016 documented in this encounter Discharge Disposition Disposition Code Departure Means Destination Home or Self Care documented in this encounter ED Notes * Radha Ritchie, MARCELO - 12/05/2016 0251 EDT Discharge instructions reviewed with pt and their family. No question/concerns re: discharge education. Pt aware of s/s to return to ER for re-eval. Pt ambulated out without incident. * Benita Sol MD - 12/05/2016 0045 EDT DOS: 12/04/2016 Chief Complaint Patient presents with ??? Otalgia pt c/o left sided ear pain and headache. has tried tylenol OTC without relief. ??? Hyperglycemia patient reports her last FS was 369, takes metformin but is out now. she states she is supposed totake insulin but im workin gwith my insurance for it right now. HPI The history is provided by the patient and medical records. Otalgia Associated symptoms: headaches Associated symptoms: no abdominal pain, no congestion, no fever, no rash and no sore throat Hyperglycemia Associated symptoms: dizziness and nausea Associated symptoms: no abdominal pain, no chest pain, no confusion, no dysuria, no fever and no shortness of breath Madhuri Valenzuela, am scribing for Benita Sol MD while he/she is personally performing the service. Madhuri Manuel 12/05/2016 0:46 Cristy Montelongo is a 31 y.o. female with a history of Type 2 DM, anxiety, depression, and migraine who presents with otalgia and hyperglycemia. Pt states she hasn't taken her metformin for the past few months because her insurance ran out and she hasn't been able to afford her medication. Pt also complains of left ear pain, which she feels is causing her to have a migraine, dizziness, and nausea. Denies any skin infections. Review of Systems Review of Systems Constitutional: Negative. Negative for chills and fever. HENT: Positive for ear pain. Negative for congestion, sore throat and trouble swallowing. Eyes: Negative. Negative for visual disturbance. Respiratory: Negative. Negative for chest tightness and shortness of breath. Cardiovascular: Negative. Negative for chest pain, palpitations and leg swelling. Gastrointestinal: Positive for nausea. Negative for abdominal distention and abdominal pain. Endocrine: Negative. Genitourinary: Negative. Negative for dysuria and frequency. Musculoskeletal: Negative. Negative for arthralgias. Skin: Negative. Negative for rash. Allergic/Immunologic: Negative. Negative for immunocompromised state. Neurological: Positive for dizziness and headaches. Hematological: Negative. Negative [...] Temp: 36.4 ??C (97.5 ??F) Temp src: Temporal Pulse: 98 Resp: 18 SpO2: 100 % BP: 102/74 BP MAP: 84 mm Hg BP Device: BP Machine Patient Position: Sitting BP Cuff Location: Left arm O2 Flow Rate (L/min): 0 l/min O2 Device: None (Room air) Physical Exam Constitutional: She is oriented to person, place, and time. She appears well- developed and well-nourished. No distress. HENT: Head: Normocephalic and atraumatic. Layer of purulence over left TM, right is normal. Eyes: Conjunctivae are normal. Neck: Neck supple. Cardiovascular: Normal rate, regular rhythm and normal heart sounds. No murmur heard. Pulmonary/Chest: Effort normal. No respiratory distress. She has no wheezes. Abdominal: Soft. She exhibits no distension. There is no tenderness. There is no rebound. Musculoskeletal: Normal range of motion. Neurological: She is alert and oriented to person, place, and time. Skin: Skin is warm and dry. Psychiatric: She has a normal mood and affect. Her behavior is normal. Nursing note and vitals reviewed. RESULTS EKG orders: None Radiology orders: None ED Lab Results Labs Reviewed GLUCOSE, GLUCOMETER - Abnormal Result Value Status Glucose, Fingerstick 350 (*) Final Reproduction Machine Loader ID [id number] Final GLUCOSE, GLUCOMETER - Abnormal Glucose, Fingerstick 316 (*) Final Reproduction Machine Loader ID [id number] Final HEMAGRAM AND DIFFERENTIAL - Abnormal WBC 16.71 (*) Final RBC 5.08 (*) Final Hemoglobin 15.6 (*) Final PLT 415 (*) Final HCT 43.8 Final MCV 86 Final MCH 30.7 Final MCHC 35.6 Final RDW-CV 12.2 Final RDW-SD 38.3 Final MPV 9.6 Final Neutrophils PENDING Incomplete BASIC METABOLIC PANEL - Abnormal Creatinine 0.48 (*) Final Glucose, Serum 295 (*) Final Sodium 140 Final Potassium 4.4 Final Chloride 101 Final CO2 26 Final BUN 14 Final GFR, Calculated 131 Final Calcium 9.9 Final Calculated Calcium 9.7 Final Fasting? Unknown Final POCT URINE DIPSTICK - Abnormal Glucose 3+ (*) Final Blood 2+ (*) Final Color YELLOW Final Clarity, UA Clear Final Bilirubin Neg Final Ketones Neg Final Specific [place] 1.020 Final pH 6.0 Final Protein Neg Final Urobilinogen 0.2 Final Nitrite Neg Final Leuk Esterase Neg Final Tech ID [id number] Final POCT TEST, CLINITEK UPT Result Neg Final Tech ID [id number] Final POCT GLUCOSE Relevant Data Procedures ED COURSE A medical screening exam was performed. The patient is a 31 y.o. female, who presents with otalgia and hyperglycemia. On exam, pt had a layer of purulence over left TM, right is normal. Multiple etiologies were considered for this patient's symptoms including DKA, HHS, or otitis. At 0100, pt was given 500 mg of amoxil. Patient had labs that were reviewed independently by myself, significant for a reassuring serum bicarbonate of 26, nl renal function, serum glucose of 295 within range of multiple prior sets of bloodwork done over the past year. Has persistent leukocytosis which is not a new finding. Uranalysis ispositive for glucose, and negative for ketones. At 0200, pt was given her usual dose of Lantus as well as 1 L NS bolus and 500 mg metformin. Pt was discharged with instructions to follow up with her PCP. Prior to discharge usual and customary precautions were reviewed with the patient and/or family including follow-up instructions and reasons to return to the Emergency Department if condition worsens, does not improve as expected, or other new concerns arise. ASSESSMENT AND PLAN Final diagnoses: Type 2 diabetes mellitus with hyperglycemia, with long-term current use of insulin acute otitis media, left DISPOSITION: Discharged The patient's pain was managed [...] at departure from the Emergency Department: Improved PCP: Provider None [facility] 12/05/2016 9:25 No flowsheet data found. This documentation is recorded by Madhuri Manuel acting as Scribe under the direction and presence ofBenita Sol MD. Benita Sol MD: I personally performed the services recorded by the scribe in my presence. I confirm the scribe's documentation has been reviewed by me to accurately and completely record my work, treatment, procedures, and medical decision making. * Marisa Christianson RN - 12/04/20162058 EDT Chief Complaint Patient presents with ??? Otalgia pt c/o left sided ear pain and headache. has tried tylenol OTC without relief. ??? Hyperglycemia patient reports her last FS was 369, takes metformin but is out now. she states she is supposed totake insulin but im workin gwith my insurance for it right now. Fingerstick in triage = 350 documented in this encounter Plan of Treatment Upcoming Encounters Date Type Department Care Team (Late st Contact Info) Description 02/21/2024 9:45 EDT Office Visit [facility] Adult Primary Care - [place] [address] [place], [place] [address] Carrington Calderon MD [address] [place] [address] [address] [place] [address] 02/27/2024 8:30 EDT Telemedicine [facility] Sleep Program - [address] [address] Rn, Sleep 02/29/2024 10:30 EDT Appointment [facility] Radiology Nuclear Medicine and PET - [address] [address] 02/29/2024 14:30 EDT Appointment [facility] Radiology Nuclear Medicine and PET [address] [id number] 03/01/2024 8:00 EDT Appointment [facility] Radiology Nuclear Medicine and PET [address] [phone] 03/01/2024 9:30 EDT Appointment [facility] Radiology Nuclear Medicine and PET [address] [address] documented as of this encounter Procedures Procedure Name Priority Date/Time Associated Diagnosis Comments POCT URINE DIPSTICK, CLINITEK Routine 12/05/2016 1:16 EDT POCT TEST, CLINITEK STAT 12/05/2016 1:14 EDT COMPLETE BLOOD COUNT AND DIFFERENTIAL STAT 12/05/2016 1:03 EDT BASIC METABOLIC PANEL (BMP) STAT 12/05/2016 1:03 EDT GLUCOSE, GLUCOMETER Routine 12/05/2016 0 :32 EDT GLUCOSE, GLUCOMETER Routine 12/04/2016 2 0:58 EDT documented in this encounter Results * (ABNORMAL) POCT URINE DIPSTICK (12/05/2016 1:16 EDT) [facility] Color YELLOW 12/05/2016 1:24 EDT [facility] Clarity, UA Clear 12/05/2016 1:24 EDT [facility] Glucose 3+(A) Neg 12/05/2016 1:24 EDT [facility] Bilirubin Neg Neg 12/05/2016 1:24 EDT [facility] Ketones Neg Neg 12/05/2016 1:24 EDT [facility] Specific [place] 1.020 1.001 - 1.035 12/05/2016 1:24 EDT [facility] Blood 2+(A) Neg 12/05/2016 1:24 EDT [facility] pH 6.0 4.6 - 8.0 12/05/2016 1:24 EDT [facility] Protein Neg Neg 12/05/2016 1:24 EDT [facility] Urobilinogen 0.2 0.2 - 1.0 E.U./dl 12/05/2016 1:24 EDT [facility] Nitrite Neg Neg 12/05/2016 1:24 EDT [facility] Leuk Esterase Neg Neg 12/05/2016 1:24 T [facility] rivet passer ID [id number] 12/05/2016 1:24 EDT [facility] Comment:Test performed at [facility] Urine specimen (specimen) URINE / Unknown 12/05/2016 1:16 EDT 12/05/2016 1:24 EDT Benita Sol MD POINT OF CARE TEST O RDERABLES [facility] [address] [place] [address] * POCT TEST, CLINITEK (12/05/2016 1:14 EDT) UPT Result Neg Neg 12/05/2016 1:27 T [facility] rivet passer ID [id number] 12/05/2016 1:27 EDT [facility] Comment:Test performed at [facility] Urine specimen (specimen) URINE / Unknown 12/05/2016 1:14 EDT 12/05/2016 1:27 EDT Benita Sol MD POINT OF CARE TEST O RDERABLES [facility] [address] [place] [address] * (ABNORMAL) BASIC METABOLIC PANEL (12/05/2016 1:03 EDT) Sodium 140 136 - 145 mEq/L 12/05/2016 1:41 T [facility] Potassium 4.4 3.5 - 5.0 mEq/L 12/05/2016 1:41 [facility] Chloride 101 96 - 110 mEq/L 12/05/2016 1:41 [facility] CO2 26 22 - 32 mEq/L 12/05/2016 1:41 [facility] BUN 14 10 - 26 mg/dl 12/05/2016 1:41 [facility] Creatinine 0.48(L) 0.52 - 1.04 mg/dl 12/05/2016 1:41 [facility] GFR, Calculated 131 >60 ml/min/1.7 3m2 12/05/2016 1:41 [facility] Comment: eGFR calculated using CKD-EPI equation for non Americans. Multiply eGFR by 1.16 for Americans. Calcium 9.9 8.5 - 10.5 mg/dl 12/05/2016 1:41 [facility] Calculated Calcium 9.7 8.5 - 10.5 mg/dl 12/05/2016 1:41 [facility] Glucose, Serum 295(H) 70 - 100 mg/dl 12/05/2016 1:41 [facility] Fasting? Unknown 12/05/2016 1:17 [facility] Blood specimen (specimen) BLOOD SPECIMEN / Unknown 12/05/2016 1:03 EDT 12/05/2016 1:17 EDT Benita Sol MD CHEMISTRY & BLOOD GA S ORDERABLES [facility] [address] [place] [address] * (ABNORMAL) HEMAGRAM AND DIFFERENTIAL (12/05/2016 1:03 EDT) WBC 16.71(H) 4.0 - 12.4 K/cmm 12/05/2016 1:22 [facility] RBC 5.08(H) 3.86 - 5.04 M/cmm 12/05/2016 1:22 [facility] Hemoglobin 15.6(H) 11.6 - 15.2 gm/dl 12/05/2016 1:22 [facility] HCT 43.8 34.9 - 44.4 % 12/05/2016 1:22 [facility] MCV 86 81 - 98 fl 12/05/2016 1:22 [facility] MCH 30.7 26.7 - 33.3 pg 12/05/2016 1:22 [facility] MCHC 35.6 32.1 - 35.9 gm/dl 12/05/2016 1:22 [facility] RDW-CV 12.2 <14.7 % 12/05/2016 1:22 [facility] RDW-SD 38.3 <50.4 fl 12/05/2016 1:22 [facility] PLT 415(H) 141 - 377 K/cmm 12/05/2016 1:22 [facility] MPV 9.6 9.5 - 12.7 fl 12/05/2016 1:22 [facility] Neutrophils 54.0 % 12/05/2016 2:05 [facility] Lymphocytes 34.0 % 12/05/2016 2:05 [facility] Monocytes 7.0 % 12/05/2016 2:05 [facility] Eosinophils 3.0 % 12/05/2016 2:05 [facility] Basophils 2.0 % 12/05/2016 2:05 [facility] ABS Neutrophils 9.03(H) 2.20 - 8.85 K/cmm 12/05/2016 2:05 EDT [facility] ABS Lymphs 5.68(H) 1.09 - 3.30 K/[facility] 12/05/2016 2:05 EDT [facility] ABS Monocytes 1.17(H) 0.1 - 0.8 K/[facility] 12/05/2016 2:05 T [facility] ABS Eosinophils 0.50 0.03 - 0.61 K/[facility] 12/05/2016 2:05 T [facility] ABS Basophils 0.33(H) 0.01 - 0.11 K/[facility] 12/05/2016 2:05 T [facility] Type of Diff: Manual 12/05/2016 2:05 [facility] Blood specimen (specimen) BLOOD SPECIMEN / Unknown 12/05/2016 1:03 EDT 12/05/2016 1:18 EDT Benita Sol MD PACKAGES & DNA PROBE ORDERABLES Performing Organization Address City/[facility] Co de Phone Number [facility] [address] [place] [address] * (ABNORMAL) GLUCOSE, GLUCOMETER (12/05/2016 0:32 EDT) Glucose, Fingerstick 316(H) 70 - 100 mg/dl 12/05/2016 0:32 EDT [facility] Reproduction Machine Loader ID [id number] 12/05/2016 0:32 EDT [facility] Comment:Test Performed by [employer] BLOOD SPECIMEN / Unknown 12/05/2016 0:32 EDT 12/05/2016 0:33 EDT Provider Unknown CHEMISTRY & BLOOD GA S ORDERABLES Performing Organization Address [facility]/ZIP Co de Phone Number [facility] [address] [place] [address] * (ABNORMAL) GLUCOSE, GLUCOMETER (12/04/2016 20:58 EDT) Glucose, Fingerstick 350(H) 70 - 100 mg/dl 12/04/2016 21:02 EDT [facility] Reproduction Machine Loader ID [id number] 12/04/2016 21:02 EDT [facility] Comment:Test Performed by [employer] BLOOD SPECIMEN / Unknown 12/04/2016 20:58 EDT 12/04/2016 21:02 EDT Provider Unknown CHEMISTRY & BLOOD GA S ORDERABLES [facility] [address] [place] [address] documented in this encounter Visit Diagnoses Diagnosis Type 2 diabetes mellitus with hyperglycemia, with long-term current use of insulin ([facility])- Primary documented in this encounter Administered Medications Inactive Administered Medications - up to 3 most recent administrations Medication Order MAR Action Action Date Dose Rate Site amoxicillin (AMOXIL) capsule 500 mg 500 mg, oral, NOW X1, 1 dose, On 12/05/16 at 0100, STAT Given 12/05/2016 1:17 EDT 500 mg insulin glargine (LANTUS SOLOSTAR) injection pen 40 Units 40 Units, subcutaneous, NOW X1, 1 dose, On 12/05/16 at 0200, STAT Given 12/05/2016 2:00 EDT 40 Units metFORMIN (GLUCOPHAGE) tablet 500 mg 500 mg, oral, NOW X1, 1 dose, On 12/05/16 at 0200, STAT Given 12/05/2016 2:51 EDT 500 mg sodium chloride 0.9 % BOLUS 1,000 mL 1,000 mL, intravenous, NOW X1, 1 dose, On 12/05/16 at 0200, STAT New Bag 12/05/2016 1:57 EDT 1,000 mL documented in this encounter Discontinued Medications Medication Sig Discontinue Reason Start Date End Da te metFORMIN (GLUCOPHAGE) 500 mg tablet Take 1 Tab by mouth 2 times daily. 07/15/2016 12/05/2016 documented as of this encounter Active and Recently Administered Medications Times are shown in EDT. Scheduled Medication Order 12/03/2016 12/04/2016 12/05/2016 amoxicillin (AMOXIL) capsule 500 mg (COMPLETED) 500 mg, oral, NOW X1, 1 dose, On 12/05/16 at 0100, STAT 0117 (Given - Provid er: Radha Ritchie RN) insulin glargine (LANTUS SOLOSTAR) injection pen 40 Units (COMPLETED) 40 Units, subcutaneous, NOW X1, 1 dose, On 12/05/16 at 0200, STAT 0200 (Given - Provid er: Radha Ritchie, MARCELO) metFORMIN (GLUCOPHAGE) tablet 500 mg (COMPLETED) 500 mg, oral, NOW X1, 1 dose, On 12/05/16 at 0200, STAT 0251 (Given - Provid er: Radha Ritchie, MARCELO) sodium chloride 0.9 % BOLUS 1,000 mL (COMPLETED) 1,000 mL, intravenous, NOW X1, 1 dose, On 12/05/16 at 0200, STAT 0157 (New Bag - Prov ider: Radha Ritchie, RN)[id number] (Completed - Provider: Radha Ritchie, MARCELO) documented in this encounter Orders Medications Ordered That Stan ht Not Have Been Administered Count Last Ordered Date First Ordered Date insulin glargine (LANTUS RICARDO OSTAR) injection pen 40 Units 1 12/05/2016 Lab Orders Without Results Count Last Ordered D ate First Ordered Date POCT GLUCOSE 1 12/04/2016 Nursing Count Last Ordered Date First Orde red Date INSERT PERIPHERAL IV 1 12/05/2016 documented in this encounter Care Teams Ross Furnace Operator Relationship Specialty Start Date End Date None, Provider PCP - General 03/08/16 08/21/18 documented as of this encounter
--- OUTSIDE RECORDS SUMMARY | 2023-12-16 00:46 | XMS_ITS | Encounter Summary ---
Author Organization [facility] Address [address] [place] [id number] Care Team Providers Care Forensics Team Director Name Role Phone Benita Shafer GUSTAVO Primary Care Provider [phone] Reason for Visit * Reason Comments Eye Problem Left eye lid pain an d swelling, onset Tuesday fiordaliza. recent shingle in that eye Encounter Details Date Type Department Care Team (Latest Contact Info) Description 09/06/2018 8:37 EDT - 09/06/2018 10:13 EDT Hospital Encounter [facility] - [address] [address] Fran Blanco MD [address] [place] [phone] Unknown, ProviderMD Hordeolum externum of left upper eyelid (Primary Dx); Herpes zoster with ophthalmic complication, unspecified herpes zoster eye disease Discharge Disposition: Home or Self Care Social [...] Sign Reading Time Taken Comments Blood Pressure 140/84 09/06/2018 0855 EDT Pulse 114 09/06/2018 0855 EDT Temperature 36.7 ??C (98.1 ??F) 09/06/2018 0855 EDT Respiratory Rate 16 09/06/2018 0855 EDT Oxygen Saturation - - Inhaled Oxygen Concentration - - Weight - - Height - - Body Mass Index - - documented in this encounter Discharge Instructions * Discharge Instructions* Fran Blanco MD, MD - 09/06/2018 10:58 EDT We were unable to reach Dr. Levine's office to arrange the follow-up for you. Please go directly there now as you planned for a follow-up evaluation today. documented in this encounter Medications at Time of Discharge Medication Sig Dispensed Refills Start Date End Date insulin aspart U-100 (NOVOLOG FLEXPEN) 100 unit/mL injectable pen Inject 2-4 Units into the skin 3 times daily with meals. Sliding scale 10/01/2019 insulin glargine (LANTUS SOLOSTAR) 100 unit/mL (3 mL) injection pen Inject 10 Units into the skin at bedtime. 11/26/2019 metFORMIN (GLUCOPHAGE) 500 mg tablet Take 1,000 mg by mouth daily. 11/26/2019 VIT 91/IRON/FOLIC/DHA ( + DHA ORAL) Take by mouth. 06/06 UNKNOWN TO PATIENTIndications: control Take by mouth. 10/01/2019 documented as of this encounter Discharge Disposition Disposition Code Departure Means Destination Home or Self Care Walk-out Home documented in this encounter ED Notes * Valencia Davila RN - 09/06/2018 1052 EDT Attempted to call Dr Srikanth Levine at [facility] to request patient have follow up appointment today, no answer, left voicemail message requesting them to return my call or call patientdirectly, no call back, patient will go directly to office from here. Dr Blanco aware * Fran Blanco MD, MD - 09/06/2018 1013 EDT DOS: 09/06/2018 Chief Complaint Patient presents with ??? Eye Problem Left eye lid pain and swelling, onset Tuesday fiordaliza. recent shingle in that eye The patient is a 33 y.o. female who presents today with Eye Problem (Left eye lid pain and swelling, onset Tuesday fiordaliza. recent shingle in that eye) Chief complaint left eye pain and lid swelling 33-year-old insulin-dependent diabetic was diagnosed with shingles at the beginning of August. She was seen in [place] and had follow-up with the camera repairer, Dr. Jerad Cruz. She reports that her symptoms completely resolved with the initial treatment. However around August 22 she had a rec urrence of the symptoms and was seen in the [facility] ED. 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 2 days ago she noted some discharge and crusting out of the left eye in the morning and some swelling of the left upper lid. She has had some pain in the area that has waxed and waned since herinitial diagnosis and that remains true with no distinct worsening. She has had some visual blurring since the diagnosis as well and that has not worsened either. 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 She does not wear contact lenses. Review of Systems Constitutional: Negative for chills and fever. HENT: Negative for sinus pain. Eyes: Negative for photophobia. Gastrointestinal: Negative for nausea and vomiting. Skin: Negative for rash. No current facility-administered medications for this encounter. Current Outpatient Medications Medication Sig Dispense Refill ??? insulin aspart U-100 (NOVOLOG FLEXPEN) 100 unit/mL injectable pen Inject into the skin 3 times daily with meals. ??? insulin glargine (LANTUS SOLOSTAR) 100 unit/mL (3 mL) injection pen Inject 8 Units into the skin at bedtime. ??? metFORMIN (GLUCOPHAGE) 500 mg tablet Take 500 mg by mouth 2 times daily. ??? VIT 91/IRON/FOLIC/DHA ( + DHA ORAL) Take by mouth. ??? UNKNOWN TO PATIENT Take by mouth. Allergies Allergen Reactions ??? Citalopram Other (See Comments) suicidal ideation, approx 2012 ??? Advil [Ibuprofen] Hives Patient Active Problem List Diagnosis Date Noted ??? Chronic left ear pain 09/04/2015 ??? Spontaneous miscarriage 09/04/201515, 08/19. Followed by Dr. López[facility] in [facility] ??? Family history of rheumatoid arthritis 09/04/2015 Mother, pt with chronic back pain. Told arthritis in spine in teen yrs. ??? Type 2 diabetes mellitus (HCC-CMS) 09/03/2015 Dx approx age 25. Controlled with lifestyle behaviors, wt loss. Had taken lantus in past 80u, Followed by endocrine in [facility]. Stopped few yrs ago until this past month. ??? Anxiety and depression 05/12/2010 Onset teen yrs. Treated with citalopram in approx 2012 - had SI, treated at [place]. Marijuana prn to help with stress/anxiety sx. [...] ??? Rh negative state in antepartum period Social History Tobacco Use ??? Smoking status: [...] Paternal Grandmother ??? Diabetes Paternal Grandfather BP 140/84 Pulse (!) 114 Temp 98.1 ??F (36.7 ??C) Resp 16 Physical Exam Constitutional: She appears well-developed and well-nourished. HENT: Head: Normocephalic. Right Ear: External ear normal. Left Ear: External ear normal. There are no lesions on her face. She has some mild erythema and edema of the left upper lid. Thereis a visible stye on the lid margin. She has no conjunctival injection. There is no discharge. Consult orders: None PCP: Benita Shafer No results found for this visit on 09/06/18. Radiology orders: None Imaging Results None No orders to display Procedures URGENT CARE COURSE A medical screening exam was performed. ASSESSMENT AND PLAN Final diagnoses: Hordeolum externum of left upper eyelid Herpes zoster with ophthalmic complication, unspecified herpes zoster eye disease Most likely a stye/conjunctival irritation associated with that, and she has not had any worsening vision or pain nor new discrete lesions as she did with her previous reactivation, but given her complicated hx I recommended close f/u with ophthalmology for a recheck. Pt left to go to Dr. Cruz's office as we had not yet reached them. I talked with Dr Cruz after she left - he'll see her tomorrow and they will schedule that with her. She had no-showed for her last appointment. I was unable to reach her at her cell number (not available) and home number (not active number) to discuss antibiotic drop treatment recommended by Dr. Cruz. I had mentioned warm compresses. We'll contact his office again to try and close the loop. No supervision required. DISPOSITION: Discharged The patient's pain was managed to an adequate level weighing risk vs. benefit of further medications. Upon departure from [facility], the patient's pain was 8 on a zero to ten scale. Any further pain treatment will be at the discretion of the provider following up with the patient based on their clinical assessment . Condition at departure from the [facility] : Stable MDM 09/06/2018 11:31 * Valencia Davila, MARCELO - 09/06/2018 0906 EDT Verified name and Patient reports 3 weeks ago she had shingles in her left eye and was treated by an Eye MD in [facility], she has completed her treatment, all symptoms resolved, developed righteye upper lid swelling Tuesday, no recent injury, area is painful and red documented in this encounter Plan of Treatment Upcoming Encounters Date Type Department Care Team (Late st Contact Info) Description 02/21/2024 9:45 EDT Office Visit [facility] - [address] [address] Carrington Calderon MD [address] [place] [phone] 02/27/2024 8:30 EDT Telemedicine [facility] Sleep Program - [address] [address] Rn, Sleep 02/29/2024 10:30 EDT Appointment [facility] Nuclear Medicine and PET [address] [address] 02/29/2024 14:30 EDT Appointment [facility] Nuclear Medicine and PET [address] [id number] 03/01/2024 8:00 EDT Appointment [facility] Nuclear Medicine and PET [address] [address] 03/01/2024 9:30 EDT Appointment [facility] Nuclear Medicine and PET [address] [id number] documented as of this encounter Visit Diagnoses Diagnosis Hordeolum externum of left upper eyelid- Primary Hordeolum externum Herpes zoster with ophthalmic complication, unspecified herpes zoster eye disease documented in this encounter Orders Nursing Count Last Ordered Date First Orde red Date VISUAL ACUITY SCREENING 1 09/06/2018 documented in this encounter Care Teams Forensics Team Director Relationship Specialty Start Date End Date Benita Shafer NP PCP - General 08/22/18 06/17/19 documented as of this encounter
--- OUTSIDE RECORDS SUMMARY | 2023-12-16 00:46 | XMS_ITS | Encounter Summary ---
Author Organization [facility] Address [address] [place] [id number] Care Team Providers Care Electronics System Mechanic Name Role Phone None, Provider Primary Care Provider Unavailabl e Reason for Visit * Reason Comments Abscess Encounter Details Date Type Department Care Team (Latest Contact Info) Description 07/15/2016 11:37 EST - 07/15/2016 14:25 EST Hospital Encounter [facility] Urgent Care - [address] [id number] Moy Marquez MD [address] [place] [phone] Unknown, Provider, Perianal abscess (Primary Dx); Nausea and vomiting, intractability of vomiting not specified, unspecified vomiting type; Type 2 diabetes mellitus with complication, unspecified exterminator termite insulin use status ([facility]) Discharge Disposition: Home or Self Care Social [...] Sign Reading Time Taken Comments Blood Pressure 114/73 07/15/2016 1158 EST Pulse 100 07/15/2016 1420 EST Temperature 36.6 ??C (97.9 ??F) 07/15/2016 1158 EST Respiratory Rate 18 07/15/2016 1158 EST Oxygen Saturation - - Inhaled Oxygen Concentration - - Weight - - Height - - Body Mass Index - - documented in this encounter Discharge Diagnoses Diagnosis K61.0 Anal abscess-K61.0[ICD-10-CM] documented in this encounter Discharge Instructions * Discharge Instructions* Callum Vicente MD - 07/15/2016 14:19 EST For your perianal abscess, take [id number] Tylenol (acetaminophen) as needed for pain. Keep the area clean. If significant swelling returns without drainage or you experience increased fever, please seek medical attention. Please see a doctor if this keeps happening. For your diabetes, you will likely need closer follow-up. You have been prescribed metformin today for diabetes. Take this twice a day for your diabetes. * Attachments The following attachments cannot be sent through Care Everywhere. * PERIRECTAL ABSCESS (NAURUAN) documented in this encounter Medications at Time of Discharge Medication Sig Dispensed Refills Start Date End Date metFORMIN (GLUCOPHAGE) 500 mg tablet Take 1 Tab by mouth 2 times daily. 180 Tab 3 07/15/2016 12/05/2016 documented as of this encounter Ordered Prescriptions Prescription Sig Dispensed Refills Start Date End Da te metFORMIN (GLUCOPHAGE) 500 mg tablet Take 1 Tab by mouth 2 times daily. 180 Tab 3 07/15/2016 12/05/2016 documented in this encounter Discharge Disposition Disposition Code Departure Means Destination Home or Self Care Walk-out Home documented in this encounter ED Notes * Nomi Gallegos MA - 07/15/2016 1333 EST Blood drawn via butterfly needle per protocol, tiger and purple tube(s) sent to lab per order. * Moy Marquez MD - 07/15/2016 1301 EST Attestation statement I saw and examined the patient on the day of this service and agree with the findings and plan of care documented in the resident's (Callum Vicente MD PGY-1) note, except where noted. 31 year old with one day history of buttocks abscess, that does not look to track deeper, that has opened and started to drain. Nontoxic. After discussion, we opt to perform I and D although little further drainage occurs. I was present for the entire procedure. Basic blood work is performed given patient's history of diabetes, and evidence of glucosuria. Blood work is unremarkable. She has no leukocytosis or anion gap. Discussed with patient that symptoms of nausea and vomiting could have been related to the cyst although could also be separate viral gastroenteritis. Those symptoms are improved. She is to stay well hydrated. We also discussed treatment options for diabetes. She had been on insulin as much as 40 units per day, but this was when she weighed much more. She has since lost a lot of weight. It is unclear what the status of her diabetes is, but she does continue with elevated sugars. Discussed options and will restart metformin, which is available inexpensively. May need titration and another agent. Discussed that she does need close follow-up. She will look into following up at the [facility]. Certainly follow up acutely as needed otherwise. Questions and concerns were answered. Patient expressed understanding of plan. Patient appreciative of care. Signed: Moy Marquez MD 07/15/2016 20:55 * Misty Morocho RN - 07/15/2016 1205 EST Pt has not taken her diabetes medicine in over a year due to cost. Has not been followed by her PCPand has not had a glucose reading recently. * Misty Morocho RN - 07/15/2016 1202 EST Py C/O abscess on left buttock at crease of leg. Abscess is red, swollen and painful. Some drainagetoday. Also fever of 102.1 last night with nausea and vomiting. Has been tolerating kirsten stan PO today without vomiting. documented in this encounter Miscellaneous Notes * ED Resident - Callum Vicente MD - 07/15/2016 1227 EST Images from the original note were not included. DOS: 07/15/2016 Chief Complaint Patient presents with ??? Abscess HPI The patient is a 31 y.o. female who presents today with Abscess Abscess Associated symptoms: fever, nausea and vomiting Cristy Montelongo is a 31 y.o. female history of DM 2 and obesity who presents complaining of one day's history of cyst on her left thigh/buttock. She first noticed this yesterday morning in the shower as it was painful. She was feeling nausea at that time with some vomiting of post and clear fluid. She denies blood or coffee-ground emesis. She continued to feel bad with a fever overnight and a ssociated headache. This morning, she felt the cyst start to drain. Drain bloody and purulent fluidwhich she describes as maroon colored. She does not think that the drainage is feculent in nature. She states that the pain has improved slightly since it has began to drain. However, it is still painful to her with palpation or sitting. She took some Tylenol this morning, and she felt like her fever broke she had sweats and is feeling less febrile. She denies coughing, sore throat, or nasal drainage. Review of Systems Review of Systems Constitutional: Positive for fever. Cardiovascular: Negative for chest pain. Gastrointestinal: Positive for nausea and vomiting. Negative for abdominal pain, constipation and diarrhea. Skin: Positive for rash and wound. Painful on left thigh/buttock The patient's past medical, family and social history was reviewed and updated as needed. Allergies Allergen Reactions ??? Citalopram Other (See Comments) suicidal ideation, approx 2012 ??? Advil [Ibuprofen] Hives Vital Signs Temp: 97.9 ??F (36.6 ??C) Pulse: (!) 109 Resp: 18 BP: 114/73 Physical Exam Constitutional: She appears well-developed. Obese HENT: Head: Normocephalic. Eyes: Conjunctivae are normal. Cardiovascular: Normal rate, regular rhythm and normal heart sounds. Pulmonary/Chest: Effort normal and breath sounds normal. Genitourinary: RESULTS EKG orders: None Radiology orders: None ED Lab Results Labs Reviewed URINALYSIS MICROSCOPIC ONLY - Abnormal Result Value Status Squam Epithel, UA Many (*) Final Bacteria, UA Rare (*) Final WBC, UA less than 1 Final RBC, UA 1 to 5 Final Renal Epithel, UA None seen Final Crystals, UA None seen Final Casts, UA None seen Final UA Comment Microscopic results Final Mucus, UA Present Final BASIC METABOLIC PANEL - Abnormal BUN 9 (*) Final Creatinine 0.40 (*) Final Glucose, Serum 246 (*) Final Sodium 138 Final Potassium 4.2 Final Chloride 101 Final CO2 27 Final GFR, Calculated 139 Final Calcium 9.2 Final Calculated Calcium 9.4 Final Fasting? Unknown Final HEMAGRAM AND DIFFERENTIAL - Abnormal MCHC 36.1 (*) Final ABS Neutrophils 8.93 (*) Final ABS Monocytes 0.96 (*) Final WBC 12.30 Final RBC 4.88 Final Hemoglobin 15.2 Final HCT 42.1 Final MCV 86 Final MCH 31.1 Final RDW-CV 12.5 Final RDW-SD 38.5 Final PLT 331 Final MPV 9.5 Final Neutrophils 72.6 Final Lymphocytes 18.7 Final Monocytes 7.8 Final Eosinophils 0.7 Final Basophils 0.2 Final ABS Lymphs 2.30 Final ABS Eosinophils 0.09 Final ABS Basophils 0.02 Final Type of Diff: Automated Final POCT URINE DIPSTICK - Abnormal Glucose 2+ (*) Final Ketones 1+ (*) Final Blood 3+ (*) Final Protein Trace (*) Final Leuk Esterase Trace (*) Final Color YELLOW Final Clarity, UA Clear Final Bilirubin Neg Final Specific [place] 1.015 Final pH 5.5 Final Urobilinogen 0.2 Final Nitrite Neg Final Tech ID [id number] Final POCT GLUCOSE - Normal Glucose, POC 221 (*) Final TEST, URINE Result- Test, Ur Neg Final HEMOGLOBIN A1C Relevant Data Procedures Procedure: I&D Consent: Verbal. Risks/benefits discussed. Pre-proc dx: perianal abscess Post-proc dx: same Procedure: Left gluteal perianal abscess area was disinfected with iodine swabs. 4 mL of lidocaine with epi was injected abscess. Area of induration was palpated with no appreciation of fluctuance. Half centimeter deep incision was made with scalpel in center of abscess at area of skin breakdown. Small amount of glen blood was expressed with no purulent discharge. Bleeding was controlled with pressure. EBL of 3 mL. Wound was dressed with Telfa pad and Tegaderm. Patient tolerated procedure well. ED COURSE A medical screening exam was performed. ASSESSMENT AND PLAN Final diagnoses: Perianal abscess Patient with perirectal abscess that has self drained prior. Currently afebrile with no leukocytosis or bandemia. Patient is well-appearing and suspicion for sepsis at this point is low. No remainingfluid collection is appreciated on exam or with I&D. Patient does not or antibiotics. In addition patient's diabetes is poorly controlled. Will need connection to a primary care doctor; recommenda tion for [facility] was made which the patient was amenable to. Plan: Perirectal abscess - s/p I&D with no purulence expressed - CBC and Diff Diabetes, type 2 - Hemoglobin A1C - BMP - metformin 500 mg BID Follow-up with [facility] DISPOSITION: Discharged The patient's pain was managed to an adequate level weighing risk vs. benefit of further medications. Upon departure from the Emergency Department, the patient's pain was 2 on a zero to ten scale. Condition at departure from the Emergency Department: Stable PCP: Provider None [facility] 07/15/2016 14:10 No flowsheet data found. Callum Vicente MD, 07/15/2016 14:35 Family Medicine PGY 1, Page #[id number] documented in this encounter Plan of Treatment Upcoming Encounters Date Type Department Care Team (Late st Contact Info) Description 02/21/2024 9:45 EDT Office Visit [facility] Adult Primary Care - [address] [phone] Carrington Calderon MD [address] [phone] 02/27/2024 8:30 EDT Telemedicine [facility] Sleep Program - [address] [phone] Rn, Sleep 02/29/2024 10:30 EDT Appointment [facility] Radiology Nuclear Medicine and PET - [address] [phone] 02/29/2024 14:30 EDT Appointment [facility] Radiology Nuclear Medicine and PET [address] [address] 03/01/2024 8:00 EDT Appointment [facility] Radiology Nuclear Medicine and PET [address] [address] 03/01/2024 9:30 EDT Appointment [facility] Radiology Nuclear Medicine and PET [address] [address] documented as of this encounter Procedures Procedure Name Priority Date/Time Associated Diagnosis Comments HEMOGLOBIN A1C STAT 07/15/2016 13:18 EST Type 2 diabetes mellitus with complication, unspecified exterminator termite [place] COMPLETE BLOOD COUNT AND DIFFERENTIAL STAT 07/15/2016 13:11 EST Type 2 diabetes mellitus with complication, unspecified retirement insulin use status [place] BASIC METABOLIC PANEL (BMP) STAT 07/15/2016 13:11 EST Nausea and vomiting, intractability of vomiting not specified, unspecified vomiting type POCT GLUCOSE, INTERFACED STAT 07/15/2016 12:28 EST Type 2 diabetes mellitus with complication, unspecified exterminator termite insulin use status [place] URINE SEDIMENT (MICRO) WITHOUT REFLEX TO CULTURE STAT 07/15/2016 12:06 EST Nausea and vomiting, intractability of vomiting not specified, unspecified vomiting type TEST, URINE STAT 07/15/2016 12:06 EST Nausea and vomiting, intractability of vomiting not specified, unspecified vomiting type POCT URINE DIPSTICK, CLINITEK STAT 07/15/2016 12:06 EST Nausea and vomiting, intractability of vomiting not specified, unspecified vomiting type documented in this encounter Results * HEMOGLOBIN A1C (07/15/2016 13:18 EST) Hemoglobin A1C 11.2 % 07/16/2016 11:24 [facility] Comment: Reference Range: <5.7% Normal 5.7-6.4% Increased risk for diabetes =>6.5% Diagnostic for diabetes (if confirmed) The A1c goal for non adults in general is <7%. The A1c goal for selected patients may be significantly lower than 7% if this can be achieved without significant hypoglycemia or other adverse effects of treatment. Est Avg Glucose 275 mg/dl 7 11:24 [facility] Comment: eAG represents the A1c result expressed as average glucose in mg/dl. Blood specimen (specimen) BLOOD SPECIMEN / Unknown 07/15/2016 13:18 EST 07/15/2016 13:28 EST Callum Vicente MD MPH CHEMISTRY & BLOOD GAS ORDERABLES Performing Organization Address City/State/[facility] Co de Phone Number [facility] [address] [place] [address] * (ABNORMAL) HEMAGRAM AND DIFFERENTIAL (07/15/2016 13:11 EST) WBC 12.30 4.0 - 12.4 K/cmm 07/15/2016 13:30 [facility] RBC 4.88 3.86 - 5.04 M/cmm 07/15/2016 13:30 [facility] Hemoglobin 15.2 11.6 - 15.2 gm/dl 07/15/2016 13:30 [facility] HCT 42.1 34.9 - 44.4 % 07/15/2016 13:30 [facility] MCV 86 81 - 98 fl 07/15/2016 13:30 [facility] MCH 31.1 26.7 - 33.3 pg 07/15/2016 13:30 [facility] MCHC 36.1(H) 32.1 - 35.9 gm/dl 07/15/2016 13:30 [facility] RDW-CV 12.5 11.7 - 14.6 % 07/15/2016 13:30 [facility] RDW-SD 38.5 37.6 - 50.3 fl 07/15/2016 13:30 [facility] PLT 331 141 - 377 K/cmm 07/15/2016 13:30 [facility] MPV 9.5 9.5 - 12.7 fl 07/15/2016 13:30 [facility] % Neutrophils 72.6 % 07/15/2016 13:30 [facility] % Lymphocytes 18.7 % 07/15/2016 13:30 [facility] % Monocytes 7.8 % 07/15/2016 13:30 [facility] % Eosinophils 0.7 % 07/15/2016 13:30 [facility] % Basophils 0.2 % 07/15/2016 13:30 [facility] ABS Neutrophils 8.93(H) 2.20 - 8.85 K/cmm 07/15/2016 13:30 [facility] ABS Lymphs 2.30 1.09 - 3.30 K/cmm 07/15/2016 13:30 [facility] ABS Monocytes 0.96(H) 0.1 - 0.8 K/cmm 07/15/2016 13:30 [facility] ABS Eosinophils 0.09 0.03 - 0.61 K/cmm 07/15/2016 13:30 [facility] ABS Basophils 0.02 0.01 - 0.11 K/cmm 07/15/2016 13:30 [facility] Type of Diff: Automated 07/15/2016 13:30 [facility] Comment:[place] Blood specimen (specimen) BLOOD SPECIMEN / Unknown 07/15/2016 13:11 EST 07/15/2016 13:27 EST Callum Vicente MD MPH PACKAGES & DNA [place] OBE ORDERABLES [facility] [address] [place] [address] * (ABNORMAL) BASIC METABOLIC PANEL (07/15/2016 13:11 EST) Sodium 138 136 - 145 mEq/L 07/15/2016 14:01 [facility] Potassium 4.2 3.5 - 5.0 mEq/L 07/15/2016 14:01 [facility] Chloride 101 96 - 110 mEq/L 07/15/2016 14:01 [facility] CO2 27 22 - 32 mEq/L 07/15/2016 14:01 [facility] Comment:Note new reference r masoud 03/23/16 BUN 9(L) 10 - 26 mg/dl 07/15/2016 14:01 [facility] Creatinine 0.40(L) 0.52 - 1.04 mg/dl 07/15/2016 14:01 [facility] GFR, Calculated 139 >60 ml/min/1.7 3m2 07/15/2016 14:01 [facility] Comment: eGFR calculated using CKD-EPI equation for non Americans. Multiply eGFR by 1.16 for Americans. Calcium 9.2 8.5 - 10.5 mg/dl 07/15/2016 14:01 [facility] Calculated Calcium 9.4 8.5 - 10.5 mg/dl 07/15/2016 14:01 [facility] Comment: Note new formula for calculation in use 03/10/2016 Glucose, Serum 246(H) 70 - 100 mg/dl 07/15/2016 14:01 [facility] Fasting? Unknown 07/15/2016 13:27 [facility] Comment:Performed at [place], [place] Blood specimen (specimen) BLOOD SPECIMEN / Unknown 07/15/2016 13:11 EST 07/15/2016 13:27 EST Callum Vicente MD MPH CHEMISTRY & BLOOD GAS ORDERABLES [facility] [address] [place] [address] * (ABNORMAL) POCT GLUCOSE (07/15/2016 12:28 EST) [facility] Signature Glucose, POC 221(A) 70 - 100 mg/dL [facility] Blood specimen (specimen) 07/15/2016 12:28 EST Callum Vicente MD MPH POINT OF CARE [place] T ORDERABLES [facility] [address] [place] [address] * (ABNORMAL) URINALYSIS MICROSCOPIC ONLY (07/15/2016 12:06 EST) WBC, UA less than 1 0 - 5 /HPF 07/15/2016 12:43 EST [facility] RBC, UA 1 to 5 0 - 5 /HPF 07/15/2016 12:43 [facility] Squam Epithel, UA Many(A) None seen /HPF 07/15/2016 12:43 [facility] Renal Epithel, UA None seen None seen /HPF 07/15/2016 12:43 [facility] Bacteria, UA Rare(A) None seen /HPF 07/15/2016 12:43 [facility] Crystals, UA None seen /HPF 07/15/2016 12:43 [facility] Hyaline Casts, UA None seen /LPF 07/15/2016 12:43 [facility] UA Comment Microscopic results 07/15/2016 12:13 [facility] Comment: are unreliable on urines unrefrig >2hrs or refrig >8hrs. Mucus, UA Present 07/15/2016 12:43 [facility] Comment:Performed at [place], [place] Urine specimen (specimen) URINE / Unknown 07/15/2016 12:06 EST 07/15/2016 12:17 EST Moy Marquez MD URINALYSIS ORDERAB LES [facility] [address] [place] [address] * TEST, URINE (07/15/2016 12:06 EST) Result- Test, Ur Neg Neg 07/15/2016 12:40 [facility] Comment: NOTE: False negative results may occur in women who are beyond 5-8 weeks gestation. Diagnosis of should be based on a correlation of test results with typical clinical signs and symptoms. Performed at [facility], [place], [place] Urine specimen (specimen) URINE / Unknown 07/15/2016 12:06 EST 07/15/2016 12:16 EST Moy Marquez MD URINALYSIS ORDERAB LES [facility] [address] [place] [address] * (ABNORMAL) POCT URINE DIPSTICK (07/15/2016 12:06 EST) Color YELLOW 07/15/2016 12:11 [facility] Clarity, UA Clear 07/15/2016 12:11 [facility] Glucose 2+(A) Neg 07/15/2016 12:11 [facility] Bilirubin Neg Neg 07/15/2016 12:11 [facility] Ketones 1+(A) Neg 07/15/2016 12:11 [facility] Specific [place] 1.015 1.001 - 1.035 07/15/2016 12:11 [facility] Blood 3+(A) Neg 07/15/2016 12:11 [facility] pH 5.5 4.6 - 8.0 07/15/2016 12:11 [facility] Protein Trace(A) Neg 07/15/2016 12:11 [facility] Urobilinogen 0.2 0.2 - 1.0 E.U./dl 07/15/2016 12:11 [facility] Nitrite Neg Neg 07/15/2016 12:11 [facility] Leuk Esterase Trace(A) Neg 07/15/2016 12:11 [facility] oracle soa architect ID [id number] 07/15/2016 12:11 [facility] Comment:Test performed at [facility] Urine specimen (specimen) URINE / Unknown 07/15/2016 12:06 EST 07/15/2016 12:11 EST Moy Marquez MD POINT OF CARE TEST ORDERABLES [facility] [address] [place] [address] documented in this encounter Visit Diagnoses Diagnosis Perianal abscess- Primary Abscess of anal and rectal regions Nausea and vomiting, intractability of vomiting not specified, unspecified vomiting type Type 2 diabetes mellitus with complication, unspecified retirement insulin use status documented in this encounter Discontinued Medications Medication Sig Discontinue Reason Start Date End Da te insulin glargine (LANTUS SOLOSTAR) 100 unit/mL (3 mL) injection pen Inject 30 Units into the skin once daily. Patient Stopped Taking 03/08/2016 07/15/2016 insulin glargine (LANTUS SOLOSTAR) 100 unit/mL (3 mL) injection pen Inject 30 Units into the skin at bedtime. Therapy completed 03/08/2016 07/15/2016 glimepiride (AMARYL) 2 mg tablet Take 1 Tab by mouth every morning. 05/12/2010 07/15/2016 documented as of this encounter Care Teams Electronics System Mechanic Relationship Specialty Start Date End Date None, Provider PCP - General 03/08/16 08/21/18 documented as of this encounter
--- OUTSIDE RECORDS SUMMARY | 2023-12-16 00:46 | XMS_ITS | Encounter Summary ---
Author Organization [facility] Address [address] [place] [address] Care Team Providers Care Engineer First Assistant Name Role Phone Benita Shafer OCEAN IMPORT REPRESENTATIVE Primary Care Provider Encounter Details Date Type Department Care Team (Late st Contact Info) Description 10/24/2018 Orders Only [facility] Women's Services - [address] [phone] Ana Coronado MD 111 [facility] 4 [place] [address] Complication of in first trimester (Primary Dx) Social History Tobacco Use Types [...] Info) Description 02/21/2024 9:45 EDT Office Visit [facility] Adult Primary Care - [address] [phone] Carrington Calderon MD 1 [facility] 1 [place] [phone] 02/27/2024 8:30 EDT Telemedicine [facility] Sleep Program - [address] [place] [address] Rn, Sleep 02/29/2024 10:30 EDT Appointment [facility] Radiology Nuclear Medicine and PET - [address] [address] 02/29/2024 14:30 EDT Appointment [facility] Radiology Nuclear Medicine and PET [address] [address] 03/01/2024 8:00 EDT Appointment [facility] Radiology Nuclear Medicine and PET [address] [address] 03/01/2024 9:30 EDT Appointment [facility] Radiology Nuclear Medicine and PET [address] [address] documented as of this encounter Results * (ABNORMAL) QUANT BETA HCG, (10/24/2018 14:42 EDT) [facility] Quant Beta HCG, Preg 1,286(H) <5 mIU/ml 10/24/2018 15:40 EDT [facility] Comment: Reference Range: Negative = <5 Indeterminate = 5-25 recommend repeat in 48 hours. Positive = >25 The results of this assay can be falsely lowered due to the consumption of Biotin. Blood specimen (specimen) BLOOD SPECIMEN / Unknown 10/24/2018 14:42 EDT 10/24/2018 14:54 EDT Ana Coronado MD CHEMISTRY & BLOOD GAS ORDERABLES [facility] [address] [place] [address] documented in this encounter Visit Diagnoses Diagnosis Complication of in first trimester- Primary documented in this encounter Care Teams Engineer First Assistant Relationship Specialty Start Date End Date Benita Shafer NP PCP - General 08/22/18 06/17/19 documented as of this encounter
--- OUTSIDE RECORDS SUMMARY | 2023-12-16 00:46 | XMS_ITS | Encounter Summary ---
Author Organization [facility] Address [address] [place] [address] Care Team Providers Care Automotive Design Drafter Name Role Phone Benita Shafer SEARCH LEAD Primary Care Provider [phone] Reason for Visit * Reason Onset Date Comments Follow-up 09/06/2018 Encounter Details Date Type Department Care Team (Late st Contact Info) Description 09/06/2018 Telephone [facility] Urgent Care - [address] [address] Valencia Davila, RN [address] [address] Follow-up Social History Tobacco Use Types Packs/Day [...] encounter Miscellaneous Notes * Telephone Encounter - Luciana Baron RN - 09/07/2018 0916 EDT Reached pt by phone. Name and verified. Pt currently at Dr. Cruz's office and states she hasalready had eye drops called in and will continue care as directed by ophthalmology. * Telephone Encounter - Valencia Davila RN - 09/06/2018 1251 EDT Patient seen this morning 09/06/2018, discharged with the plan to follow up with her Opthalmologist in [facility], Per Dr Balnco we would like to start patient on eye drops and she will see Opthalmology tomorrow, attempted to reach patient on both numbers listed, left generic voicemail on patientscell, as we had discussed I would be calling her with any further information, requested she returnmy call EDGARD. Left message on Opthalmology voicemail Dr Srikanth Cruz, Requesting to ask patient to call this clinic for further instructions if they here from her documented in this encounter Plan of Treatment Upcoming Encounters Date Type Department Care Team (Late st Contact Info) Description 02/21/2024 9:45 EDT Office Visit [facility] Adult Primary Care - [address] [phone] Carrington Calderon MD [address] [phone] 02/27/2024 8:30 EDT Telemedicine [facility] Sleep Program - [address] [address] Rn, Sleep 02/29/2024 10:30 EDT Appointment [facility] Radiology Nuclear Medicine and PET - [address] [phone] 02/29/2024 14:30 EDT Appointment [facility] Radiology Nuclear Medicine and PET - [address] [id number] 03/01/2024 8:00 EDT Appointment [facility] Radiology Nuclear Medicine and PET - [address] [address] 03/01/2024 9:30 EDT Appointment [facility] Radiology Nuclear Medicine and PET - [address] [address] documented as of this encounter Visit Diagnoses Not on filedocumented in this encounter Care Teams Automotive Design Drafter Relationship Specialty Start Date End Date Benita Shafer NP PCP - General 08/22/18 06/17/19 documented as of this encounter
--- OUTSIDE RECORDS SUMMARY | 2023-12-16 00:46 | XMS_ITS | Encounter Summary ---
Author Organization [facility] Address [address] [place] [address] Care Team Providers Care Plastic Roller Name Role Phone None, Provider Primary Care Provider Unavailabl e Reason for Visit * Reason Comments Back Pain Low back pain that s tarted a few days ago. Hurt it a month ago after her daughter jumped on her back. H/o arthritis in spine. Encounter Details Date Type Department Care Team (Late st Contact Info) Description 09/28/2016 20:10 EDT - 09/28/2016 21:29 EDT Emergency [facility] Emergency Department - Main [address] [address] Benita Sol MD [address] [place] [address], Level [address] [place] [phone] Emergency, MD Ekaterina Acute bilateral low back pain without sciatica (Primary Dx) Discharge Disposition: Home or Self [...] Sign Reading Time Taken Comments Blood Pressure 134/99 09/28/20162052 EDT Pulse 115 09/28/20162052 EDT Temperature 36.7 ??C (98.1 ??F) 09/28/20162014 EDT Respiratory Rate 18 09/28/20162052 EDT Oxygen Saturation 98% 09/28/20162052 EDT Inhaled Oxygen Concentration - - Weight - - Height - - Body Mass Index - - documented in this encounter Discharge Diagnoses Diagnosis M54.5 Low back pain-M54.5[ICD-10-CM] E11.9 Type 2 diabetes mellitus without complications-E11.9[ICD-10-CM] F17.210 Nicotine dependence, cigarettes, uncomplicated-F17.210[ICD-10-CM] Z79.84 residential (current) use of oral hypoglycemic drugs-Z79.84[ICD-10-CM] Z88.6 Allergy status to analgesic agent status-Z88.6[ICD-10-CM] documented in this encounter Discharge Instructions * Discharge Instructions* Benita Sol MD - 09/28/2016 21:09 EDT Take Flexeril, one tablet before bed for muscle spasms/back pain as needed. * Attachments The following attachments cannot be sent through Care Everywhere. * LUMBAR PAIN: ACUTE: EXERCISES (AMHARIC) documented in this encounter Medications at Time of Discharge Medication Sig Dispensed Refills Start Date End Date metFORMIN (GLUCOPHAGE) 500 mg tablet Take 1 Tab by mouth 2 times daily. 180 Tab 3 07/15/2016 12/05/2016 documented as of this encounter Discharge Disposition Disposition Code Departure Means Destination Home or Self Care Walk-out Home documented in this encounter ED Notes * Niesha Trejo RN - 09/28/20162127 EDT D/c paperwork reviewed and copy provided. Left the ED ambulatory in no acute distress with . * Niesha Trejo, MARCELO - 09/28/20162057 EDT supportive at BS. Awaiting provider eval. Call light within reach. * Niesha Trejo RN - 09/28/20162055 EDT Sitting up on edge of bed, reports lower back pain x 1 month and worsening. Reports this is her first visit to a provider for this complaint. * Doris Redd RN - 09/28/20162033 EDT Physician at bedside * Benita Sol MD - 09/28/20162033 EDT DOS: 09/28/2016 Chief Complaint Patient presents with ??? Back Pain Low back pain that started a few days ago. Hurt it a month ago after her daughter jumped on her back. H/o arthritis in spine. HPI HPI I, Bartolo Ambrosio, am scribing for Benita Sol MD while he/she is personally performing the service. Bartolo Ambrosio 09/28/2016 20:34 Cristy Montelongo is a 31 y.o. female with a history of obesity, anxiety and depression who presents to the ED with acute on chronic lower back pain. Patient explains that her daughter wanted to give her a massage around a month ago and jumped on her back. Patient explains that a few days ago, herback pain became really uncomfortable and painful. She states that she couldn't sleep because of this. 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 She denies any tingling or numbness in legs. She explains that during/after her bowelmovement, her back pain is worsened. She also reports that walking is tolerable but she cannot walkfast, bend over or turn sharply. Patient explains that she took Tylenol and Excedrin (which made her stomach nauseous) with no relief. Review of Systems Review of Systems Musculoskeletal: Positive for back pain. Neurological: Negative for numbness. The patient's past medical, family and social history was reviewed and updated as needed. Allergies Allergen Reactions ??? Citalopram Other (See Comments) suicidal ideation, approx 2012 ??? Advil [Ibuprofen] Hives Vital Signs Temp: 36.7 ??C (98.1 ??F) Temp src: Temporal Pulse: (!) 115 Resp: 18 SpO2: 98 % BP: (!) 134/99 BP MAP: 108 mm Hg BP Device: BP Machine Patient Position: Sitting BP Cuff Location: Left arm O2 Device: None (Room air) Physical Exam Constitutional: She is oriented to person, place, and time. She appears well- developed and well-nourished. She is cooperative. No distress. HENT: Head: Normocephalic and atraumatic. Nose: Nose normal. Eyes: Conjunctivae and EOM are normal. Pupils are equal, round, and reactive to light. Neck: Neck supple. Cardiovascular: Normal rate, regular rhythm, S1 normal and S2 normal. Exam reveals no friction rub. No murmur heard. Pulmonary/Chest: Effort normal and breath sounds normal. No respiratory distress. Abdominal: Soft. Bowel sounds are normal. There is no tenderness. There is no guarding. Musculoskeletal: Normal range of motion. She exhibits no edema or tenderness. No midline step offs, deformities 5/5 strength. Neurological: She is alert and oriented to person, place, and time. No cranial nerve deficit or sensory deficit. Coordination normal. Skin: Skin is warm and dry. No erythema. No pallor. Psychiatric: She has a normal mood and affect. Her behavior is normal. Thought content normal. Nursing note and vitals reviewed. RESULTS EKG orders: None Radiology orders: None ED Lab Results Labs Reviewed - No data to display Relevant Data Procedures ED COURSE A medical screening exam was performed. Cristy Montelongo is a 31 y.o. female with a history of obesity, anxiety and depression who presents to the ED with acute on chronic lower back pain. Patient appears better and feels comfortable with plans to discharge to home. She was instructed totake Flexeril for her muscle spasms. Prior to discharge usual and customary precautions were reviewed with the patient and/or family including follow-up instructions and reasons to return to the Emergency Department if condition worsens, does not improve as expected, or other new concerns arise. ASSESSMENT AND PLAN Final diagnoses: Acute bilateral low back pain without sciatica DISPOSITION: Discharged The patient's pain was managed to an adequate level weighing risk vs. benefit of further medications. Upon departure from the Emergency Department, the patient's pain was 0 on a zero to ten scale. Condition at departure from the Emergency Department: Improved PCP: Provider None MDM This documentation is recorded by Bartolo Ambrosio acting as Scribe under the direction and presenceof Benita Sol MD. Benita Sol MD: I personally performed the services recorded by the scribe in my presence. I confirm the scribe's documentation has been reviewed by me to accurately and completely record my work, treatment, procedures, and medical decision making. 09/28/2016 21:11 No flowsheet data found. documented in this encounter Plan of Treatment Upcoming Encounters Date Type Department Care Team (Late st Contact Info) Description 02/21/2024 9:45 EDT Office Visit [facility] Adult Primary Care - [address] [address] Carrington Calderon MD [address] [place] [phone] 02/27/2024 8:30 EDT Telemedicine [facility] Sleep Program - [address] [phone] Rn, Sleep 02/29/2024 10:30 EDT Appointment [facility] Radiology Nuclear Medicine and PET [address] [phone] 02/29/2024 14:30 EDT Appointment [facility] Radiology Nuclear Medicine and PET [address] [address] 03/01/2024 8:00 EDT Appointment [facility] Radiology Nuclear Medicine and PET [address] [address] 03/01/2024 9:30 EDT Appointment [facility] Radiology Nuclear Medicine and PET [address] [address] documented as of this encounter Visit Diagnoses Diagnosis Acute bilateral low back pain without sciatica- Primary documented in this encounter Administered Medications Inactive Administered Medications - up to 3 most recent administrations Medication Order MAR Action Action Date Dose Rate Site Cyclobenzaprine 10 mg Tab STARTER PACK 1 Package, oral, NOW X1, 1 dose, On Tue09/28/16 at 2115, STAT Given 09/28/2016 21:17 EDT 1 Package lidocaine 5 % (LIDODERM) patch 1 Patch 1 Patch, transdermal, Administer over 12 Hours, DAILY, First dose on Tue09/28/16 at 2130, Until Discontinued, STAT Patch Applied 09/28/2016 21:28 EDT 1 Patch Back documented in this encounter Active and Recently Administered Medications Times are shown in EDT. Scheduled Medication Order 09/26/2016 09/27/2016 09/28/2016 Cyclobenzaprine 10 mg Tab STARTER PACK (COMPLETED) 1 Package, oral, NOW X1, 1 dose, On Tue09/28/16 at 2115, STAT 2116 (Given - Provid er: Niesha Trejo RN) lidocaine 5 % (LIDODERM) patch 1 Patch 1 Patch, transdermal, Administer over 12 Hours, DAILY, First dose on Tue09/28/16 at 2130, Until Discontinued, STAT 2127 (Patch Applied - Provider: Niesha Trejo RN - Comment: left lower back) documented in this encounter Care Teams Plastic Roller Relationship Specialty Start Date End Date None, Provider PCP - General 03/08/16 08/21/18 documented as of this encounter
--- OUTSIDE RECORDS SUMMARY | 2023-12-16 00:46 | XMS_ITS | Encounter Summary ---
Author Organization [facility] Address [address] [place] [address] Care Team Providers Care Investigations Director Name Role Phone Benita Shafer GUSTAVO Primary Care Provider [phone] Reason for Visit * Reason Comments Problem Encounter Details Date Type Department Care Team (Late st Contact Info) Description 10/24/2018 13:00 EDT Initial consult [facility] Women's Services - [address] [phone] Ana Coronado MD 111 [facility], Level 4 [place] [address] Complication of in first trimester (Primary Dx) Discharge Disposition: Auto Discharge Social History Tobacco [...] file documented as of this encounter Discharge Disposition Disposition Code Departure Means Destination Auto Discharge documented in this encounter Progress Notes * Ana Coronado MD, - 10/24/2018 1300 EDT S: Patient is a 33-year-old -0-5-0 woman with an LMP of August 11 giving her an estimated stational age of 10 weeks 4 days. She has type 2 diabetes and history of recurrent miscarriages and is here today for ultrasound evaluation found to have a possible interstitial . Patient reports no pain or significant bleeding. She reports that she has had 4 D&Cs for most of her other losses, last procedure was in the early fall and this was a repeat procedure because initially tissue was not removed fully with the prior procedure. Reports her hCG was followed to negative. She is here today with her mother she is quite frustrated and upset with her losses. She previously reported on the phone with her last hemoglobin A1c being over 10. She would like to get all of her future care here at [facility]. Is planning to see the maternal- medicine doctors for her . 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 Type II DM. Recurrent miscarriages. History ======= Previous Outcomes 6 Para 0 Hopkins children born (T) 0 [facility] children born (P) 0 Abortions (A) 5 Hopkins living children (L) 0 Number of fetuses: 1. Dating ======= Method of dating: based on the LMP LMP on: 08/11/2018 GA by LMP 10 w + 4 d IVAN by LMP : 05/18/2019 Assigned: Dating performed on 10/24/2018 Based on the LMP Assigned GA 10 w + 4 d Assigned IVAN: 05/18/2019 Assessment Gestational sac: Visualized. Location: Interstitial . Yolk sac: Visualized. Amniotic sac: Visualized. Embryo: Not visualized. Impression OB transvaginal [id number] 1. Small gestational sac with a yolk sac seen in the right interstitial portion of the myometrium and highly concerning for an early interstitial . 2. Size not consistent with menstrual dating due either to later ovulation and conception verses abnormal failing or failed . 3. Myometrium with evidence of cystic adenomyosis. 4. Ovaries and adnexa appear normal, right ovary with two corpus lutea. Follow-up See office note. Comment ========= Ultrasound findings discussed w/patient. DATE OF SERVICE: 10/24/2018 A/P: 1. Currently with a possible early interstitial . Ultrasound is highly suspicious for this. As this is a strongly desired . US size does not match her menstrual datingand so this could be a failing and so she is being sent for hCG level which will then be r epeated in 1 to 2 days. If this is falling then that would be consistent with a failed and we would follow her hCGs to negative and look for resolution on ultrasound of her sac. If the hCG is plateaued or is rising inappropriately that would be consistent with an abnormal , but given its location she probably would be best served with treatment with methotrexate. If her hCG is rising appropriately and given the high concern for interstitial she would need to get back in for repeat ultrasound in one week or less to see if this is expanding inward towards the endometrial cavity or outward towards the outer uterus in which case then she would need to be counseled about treatment with either systemic therapy or even cornual surgery. I counseled the patient extensively about the findings and my concerns. Given the current location I am not worried aboutrupture in the near future but if this grew normally and rapidly she could end up with rupturing and internal hemorrhaging if this becomes more clearly an interstitial . She was counseled that if she has any significant abdominal pain or other concerning symptoms she should call or go to ED. She is being put into the beta book. If we confirm this is a failed she will need RhoGam given she is Rh-. After resolution of this she will need follow-up with [facility] because of her recurrent loss and preconception counseling with M given her diabetes. I would strongly recommend bettercontrol of her glucose as this may be contributing to her recurrent miscarriage which she was told. I spent 30 minutes [id number] with the patient of which more than 50% of this time was spent counseling her about above documented issues and discussion. documented in this encounter Plan of Treatment Upcoming Encounters Date Type Department Care Team (Late st Contact Info) Description 02/21/2024 9:45 EDT Office Visit [facility] Adult Primary Care - [address] [address] Carrington Calderon MD [address] [phone] 02/27/2024 8:30 EDT Telemedicine [facility] Sleep Program - [address] [address] Rn, Sleep 02/29/2024 10:30 EDT Appointment [facility] Radiology Nuclear Medicine and PET - [address] [address] 02/29/2024 14:30 EDT Appointment [facility] Radiology Nuclear Medicine and PET - [address] [phone] 03/01/2024 8:00 EDT Appointment [facility] Radiology Nuclear Medicine and PET [address] [phone] 03/01/2024 9:30 EDT Appointment [facility] Radiology Nuclear Medicine and PET [address] [address] documented as of this encounter Visit Diagnoses Diagnosis Complication of in first trimester- Primary documented in this encounter Care Teams Investigations Director Relationship Specialty Start Date End Date Benita Shafer NP PCP - General 08/22/18 06/17/19 documented as of this encounter
--- OUTSIDE RECORDS SUMMARY | 2023-12-16 00:46 | XMS_ITS | Encounter Summary ---
Author Organization [facility] Address [address] [place] [address] Care Team Providers Care Rn L And D Name Role Phone Benita Shafer SUPERVISOR STERILE PROCESSING Primary Care Provider [phone] Reason for Visit * Reason Onset Date Comments Results 10/24/2018 Encounter Details Date Type Department Care Team (Late st Contact Info) Description 10/24/2018 Telephone [facility] Women's Services - [address] [phone] Ana Coronado MD 111 [facility], Level 4 [place] [address] Results Social History Tobacco Use Types Packs/Day [...] encounter Miscellaneous Notes * Telephone Encounter - Ana Coronado MD, MD - 10/24/2018 5527 EDT Patient called with hCG level and told her that it was not significantly elevated or very low and we need a repeat in 2 days to see if it is plateauing or rising or falling in order to determine nextstep. She will come to the lab in the early afternoon and I am ordering blood test. documented in this encounter Plan of Treatment Upcoming Encounters Date Type Department Care Team (Late st Contact Info) Description 02/21/2024 9:45 EDT Office Visit [facility] Adult Primary Care - [address] [address] Carrington Calderon MD [address] [phone] 02/27/2024 8:30 EDT Telemedicine [facility] Sleep Program - [address] [phone] Rn, Sleep 02/29/2024 10:30 EDT Appointment [facility] Radiology Nuclear Medicine and [address] [phone] 02/29/2024 14:30 EDT Appointment [facility] Radiology Nuclear Medicine and PET [address] [phone] 03/01/2024 8:00 EDT Appointment [facility] Radiology Nuclear Medicine and [address] [phone] 03/01/2024 9:30 EDT Appointment [facility] Radiology Nuclear Medicine and [address] [phone] documented as of this encounter Results * (ABNORMAL) QUANT BETA HCG, (10/26/2018 8:48 EDT) Quant Beta HCG, Preg 1,531(H) <5 mIU/ml 10/26/2018 9:52 EDT [facility] Comment: Reference Range: Negative = <5 Indeterminate = 5-25 recommend repeat in 48 hours. Positive = >25 The results of this assay can be falsely lowered due to the consumption of Biotin. Blood specimen (specimen) BLOOD SPECIMEN / Unknown 10/26/2018 8:48 EDT 10/26/2018 9:00 EDT Ana Coronado MD CHEMISTRY & BLOOD GAS ORDERABLES [facility] [address] [place] [address] documented in this encounter Visit Diagnoses Diagnosis Complication of in first trimester- Primary documented in this encounter Care Teams Rn L And D Relationship Specialty Start Date End Date Benita Shafer NP PCP - General 08/22/18 06/17/19 documented as of this encounter
--- OUTSIDE RECORDS SUMMARY | 2023-12-16 00:46 | XMS_ITS | Encounter Summary ---
Author Organization [facility] Address [address] [place] [address] Care Team Providers Care Television Analyzer Name Role Phone Benita Shafer BIOMETRIC TECHNICIAN Primary Care Provider Encounter Details Date Type Department Care Team (Late st Contact Info) Description 10/26/[address] [facility] Women's Services - [facility] [address] [place], [place] [address] Charu Flynn MD 111 [facility] 4 [place] [phone] Social History Tobacco Use Types Packs/Day Years [...] Description 02/21/2024 9:[address] [facility] Adult Primary Care - [address] [phone] Carrington Calderon MD 1 [facility] 1 [place] [phone] 02/27/2024 8:[address] [facility] Sleep Program - [address] [place] [address] Rn, Sleep 02/29/2024 10:30 EDT Appointment [facility] Radiology Nuclear Medicine and PET - [address] [address] 02/29/2024 14:30 EDT Appointment [facility] Radiology Nuclear Medicine and PET - [address] [address] 03/01/2024 8:00 EDT Appointment [facility] Radiology Nuclear Medicine and PET - [address] [address] 03/01/2024 9:30 EDT Appointment [facility] Radiology Nuclear Medicine and PET [address] [address] documented as of this encounter Visit Diagnoses Not on filedocumented in this encounter Care Teams Television Analyzer Relationship Specialty Start Date End Date Benita Shafer NP PCP - General 08/22/18 06/17/19 documented as of this encounter
--- OUTSIDE RECORDS SUMMARY | 2023-12-16 00:46 | XMS_ITS | Encounter Summary ---
Author Organization [facility] Address [address] [place] [address] Care Team Providers Care Legal Collector Name Role Phone None, Provider Primary Care Provider Unavailabl e Reason for Visit * Reason Onset Date Comments Eye Problem 07/29/2016 Encounter Details Date Type Department Care Team (Late st Contact Info) Description 07/29/2016 Telephone [facility] Ophthalmology - [address] [phone] Unknown, Provider, Eye Problem Social History Tobacco Use Types Packs/Day [...] encounter Miscellaneous Notes * Telephone Encounter - Catherine Dhillon RN - 07/29/[address] Schwartz he will see pt tomorrow. Catherine Alonzo ([facility]) calling pt to schedule. * Telephone Encounter - Catherine Dhillon RN - 07/29/2016 1601 EST As of 07/29/2016 16:01: Nature of problem? Seen in ER yesterday. Rt eye Corneal abrasion and was told to call to get an appt. Pt is diabetic. Woke up tu morning and eye was swollen shut. Blurry, wears glasses but no contacts. Still having pain and very sore. Around eye is purplish/red. Eye is pretty much swollen shut. Wanted an appt for tomorrow is at work now. States ok to leave Message with info since she is at work. Onset and Duration? Is this an injury? no Pain? Hurts when moves eye, joan since really swollen; has a BUSH since Have you recently had eye surgery?no Are you having flashes/and or floaters? no Any sensitivity to light? Yes Any loss of vision/curtain/darkness/veil? Hard to open eye Any change in vision/double vision/blurred? Yes blurry Any redness? Eye itself is not but eyelid and around eye Do you wear contact lenses? No Who is your usual eye doctor? Phone Number of Eye Doctor (if not FACP) Any other pertinent information? (Please remember that a physician must approve if you are telling the patient to wait for an appointment.) Where are you now? (i.e. home/close to our office/out of town, etc.) NA If the MD needs to see you today, how long would it take you to get to our office? NA What is the best phone number for us to speak to you in the next two hours? [phone], can leavea message (VERIFY THE PHONE NUMBERS REGARDLESS OF WHAT IS IN THE SYSTEM.) (Please remember to ask the MD what he/she needs from the paper chart.) * Telephone Encounter - Catherine Donald - 07/29/2016 0177 EST Pt was seen at ed. documented in this encounter Plan of Treatment Upcoming Encounters Date Type Department Care Team (Late st Contact Info) Description 02/21/2024 9:45 EDT Office Visit [facility] Adult Primary Care - [address] [address] Carrington Calderon MD [address] [place] [address] 1 [place] [address] 02/27/2024 8:30 EDT Telemedicine [facility] Sleep Program - [address] [address] Rn, Sleep 02/29/2024 10:30 EDT Appointment [facility] Radiology Nuclear Medicine and PET - [address] [phone] 02/29/2024 14:30 EDT Appointment [facility] Radiology Nuclear Medicine and PET [address] [phone] 03/01/2024 8:00 EDT Appointment [facility] Radiology Nuclear Medicine and PET [address] [phone] 03/01/2024 9:30 EDT Appointment [facility] Radiology Nuclear Medicine and PET [address] [phone] documented as of this encounter Visit Diagnoses Not on filedocumented in this encounter Care Teams Legal Collector Relationship Specialty Start Date End Date None, Provider PCP - General 03/08/16 08/21/18 documented as of this encounter
--- OUTSIDE RECORDS SUMMARY | 2023-12-16 00:46 | XMS_ITS | Encounter Summary ---
Author Organization [facility] Address [address] [place] [address] Care Team Providers Care Liberal Arts Dean Name Role Phone None, Provider Primary Care Provider Unavailabl e Reason for Visit * Reason Comments Cough Sent from [facility], for cough, fever, sore throat x three day, cough in dry, c/o chest pain and headache due to the cough. aox3 lungs sound diminished t/o Encounter Details Date Type Department Care Team (Late st Contact Info) Description 03/08/2016 17:09 EDT - 03/08/2016 23:11 EDT Emergency [facility] Emergency Department - [address] [phone] Broderick Foster MD 111 [facility], Level 1 [place] [phone] Emergency, MD Ekaterina Acute bronchitis, unspecified organism (Primary Dx); Type 2 diabetes mellitus not at goal ([facility]) Discharge Disposition: Home or Self Care Social [...] Sign Reading Time Taken Comments Blood Pressure 102/66 03/08/2016 2203 EDT Pulse 108 03/08/20162202 EDT Temperature 36.8 ??C (98.3 ??F) 03/08/20161717 EDT Respiratory Rate 18 03/08/20162202 EDT Oxygen Saturation 95% 03/08/20162202 EDT Inhaled Oxygen Concentration - - Weight 106.6 kg (235 lb) 03/08/20161717 EDT Height 162.6 cm (5' 4) 03/08/20161717 EDT Body Mass Index 40.34 03/08/2016 171 EDT documented in this encounter Discharge Diagnoses Diagnosis J20.9 Acute bronchitis, unspecified-J20.9[ICD-10-CM] R11.0 Nausea-R11.0[ICD-10-CM] E11.9 Type 2 diabetes mellitus without complications-E11.9[ICD-10-CM] K21.9 Gastro-esophageal reflux disease without esophagitis-K21.9[ICD-10-CM] E66.9 Obesity, unspecified-E66.9[ICD-10-CM] F17.210 Nicotine dependence, cigarettes, uncomplicated-F17.210[ICD-10-CM] Z88.6 Allergy status to analgesic agent status-Z88.6[ICD-10-CM] documented in this encounter Discharge Instructions * Discharge Instructions* Broderick Foster MD - 03/08/2016 22:46 EDT Resume use of your Lantus insulin 30 units by subcutaneous injection at bedtime each night. Take the azithromycin 250 mg 1 time each day for 4 more days. Use Robitussin-DM cough syrup as needed. Call [facility] primary care, [phone], to arrange for an appointment as soon as possible to resume appropriate care of your diabetes. Call sooner or return to this emergency department as needed if symptoms worsen or change in character. documented in this encounter Medications at Time of Discharge Medication Sig Dispensed Refills Start Date End Date azithromycin (ZITHROMAX) 250 mg tablet Take 1 Tab by mouth daily for 4 days. 4 Tab 03/08/2016 03/12/2016 glimepiride (AMARYL) 2 mg tablet Take 1 Tab by mouth every morning. 30 Tab 12 05/12/2010 07/15/2016 insulin glargine (LANTUS SOLOSTAR) 100 unit/mL (3 mL) injection pen Inject 30 Units into the skin once daily. 15 mL 03/08/2016 07/15/2016 insulin glargine (LANTUS SOLOSTAR) 100 unit/mL (3 mL) injection pen Inject 30 Units into the skin at bedtime. 15 mL 1 03/08/2016 07/15/2016 documented as of this encounter Ordered Prescriptions Prescription Sig Dispensed Refills Start Date End Da te azithromycin (ZITHROMAX) 250 mg tablet Take 1 Tab by mouth daily for 4 days. 4 Tab 03/08/2016 03/12/2016 insulin glargine (LANTUS SOLOSTAR) 100 unit/mL (3 mL) injection pen Inject 30 Units into the skin at bedtime. 15 mL 1 03/08/2016 07/15/2016 insulin glargine (LANTUS SOLOSTAR) 100 unit/mL (3 mL) injection pen Inject 30 Units into the skin once daily. 15 mL 03/08/2016 07/15/2016 documented in this encounter Discharge Disposition Disposition Code Departure Means Destination Home or Self Care Car documented in this encounter ED Notes * Nini Schultz RN - 03/08/2016 2311 EDT AVS reviewed, asked to f/u with pcp and to return to ed for worsening s/s * Nini Schultz RN - 03/08/2016 2228 EDT Provider at the bedside * Nini Schultz RN - 03/08/2016 1904 EDT Patient ambulatory to bathroom with steady gait * Nini Schultz RN - 03/08/2016 5817 EDT Blood drawn via butterfly needle per protocol, cultures tube(s) sent to lab per order. * Nini Schultz RN - 03/08/2016 1855 EDT Blood drawn via saline lock per protocol, cultures tube(s) sent to lab per order. * Nini Schultz RN - 03/08/2016 1726 EDT Med student at the bedside for H&P * Catherine Osullivan - 03/08/2016 1721 EDT TCALL: CRISTY TALBOT, 85, 30YO FEMALE, DMII, NO MEDS X4 MONTHS, NOW RESP. INFECTION, WBC 21,000 GLUC. 273, CXR NEG., HR-120, BP-90/50, NOTE TAKEN BY DR. FOSTER ([facility]) * Catherine Osullivan - 03/08/2016 1720 EDT TCALL: CRISTY TALBOT, 85, 30YO FEMALE, DMII, NO MEDS X4 MONTHS, NOW RESP. INFECTION, WBC 21,000 GLUC. 273, CXR NEG., HR-120, BP-90/50, NOTE TAKEN BY DR. FOSTER ([facility]) * Catherine Osullivan - 03/08/2016 1720 EDT TCALL: CRISTY TALBOT, 85, 30YO FEMALE, DMII, NO MEDS X4 MONTHS, NOW RESP. INFECTION, WBC 21,000 GLUC. 273, CXR NEG., HR-120, BP-90/50, NOTE TAKEN BY DR. FOSTER ([facility]) * Broderick Foster MD - 03/08/2016 1716 EDT DOS: 03/08/2016 Chief Complaint Patient presents with ??? Cough Sent from [facility], for cough, fever, sore throat x three day, cough in dry, c/o chest pain and headache due to the cough. aox3 lungs sound diminished t/o HPI HPI Comments: I, Miley Lopez, am scribing for Broderick Foster MD while he is personally performing the service. Miley Lopez 03/08/2016 18:15 Cristy Talbot is a 30 y.o. female with a history of obesity, migraine, type 2 DM (pt states she has not used her medication for approximately 6 months), GERD, anxiety, and depression who presents with dry, nonproductive cough that brought up a small amount of blood that began yesterday. Pt reports 3 days of sore throat with 9/10 pain which brought on the cough. She describes associated symptoms of shortness of breath, fever, headache above her left eye, increased urinary frequency, and severe fatigue. Pt denies dysuria, diarrhea, and constipation. She reports going to [facility] who sent her here due to elevated blood sugar and WBC. Pt reports daily tobacco use stating she is truing to quit, and reports mild marijuana use. She denies IV drug use. The history is provided by the patient and medical records. Cough Cough characteristics: Non-productive and dry Sputum characteristics: Bloody (Slightly bloody) Duration: 1 day Smoker: yes Associated symptoms: fever, headaches (Above the left eye), shortness of breath and sore throat Review of Systems Review of Systems Constitutional: Positive for fatigue and fever. HENT: Positive for sore throat. Respiratory: Positive for cough and shortness of breath. Genitourinary: Positive for frequency. Neurological: Positive for headaches (Above the left eye). All other systems reviewed and are negative. The patient's past medical, family and social history was reviewed and updated as needed. Allergies Allergen Reactions ??? Citalopram Other (See Comments) suicidal ideation, approx 2012 ??? Advil [Ibuprofen] Hives Vital Signs Temp: 36.8 ??C (98.3 ??F) Temp src: Oral Pulse: (!) 108 Resp: 18 SpO2: 95 % BP: 102/66 BP MAP: 74 mm Hg BP Device: BP Machine Patient Position: Sitting BP Cuff Location: Right arm O2 Device: None (Room air) Physical Exam Constitutional: She is oriented to person, place, and time. She appears well- developed and well-nourished. She is cooperative. No distress. HENT: Head: Normocephalic. Nose: Nose normal. Eyes: Conjunctivae and EOM are normal. Pupils are equal, round, and reactive to light. Cardiovascular: Normal rate, regular rhythm, S1 normal and S2 normal. Exam reveals no friction rub. No murmur heard. Pulmonary/Chest: Effort normal. No respiratory distress. She has wheezes (Scattered inspiratory andexpiratory). She has rales (Few). Coarse rhonchi in the bases bilaterally Abdominal: Soft. Bowel sounds are normal. There is no tenderness. There is no guarding. Musculoskeletal: Normal range of motion. She exhibits no edema or tenderness. Neurological: She is alert and oriented to person, place, and time. No cranial nerve deficit or sensory deficit. Coordination normal. Skin: Skin is warm and dry. No erythema. No pallor. Psychiatric: She has a normal mood and affect. Her behavior is normal. Thought content normal. Nursing note and vitals reviewed. RESULTS Patient had labs that were reviewed independently by myself, as below. ED Lab Results Labs Reviewed GLUCOSE, GLUCOMETER - Abnormal Result Value Status Glucose, Fingerstick 163 (*) Final Belt Picker ID [id number] Final GLUCOSE, GLUCOMETER - Abnormal Glucose, Fingerstick 239 (*) Final Belt Picker ID [id number] Final BACTERIAL CULTURE, BLOOD BACTERIAL CULTURE, BLOOD POCT GLUCOSE Relevant Data Procedures ED COURSE A medical screening exam was performed. Pt was administered 1000mg IV Rocephin, 500mg IV Zithromax, and 2000mL IV Fluids. 19:30 ED RN informed me pt was nauseous. Pt was administered 4mg IV Zofran. Pt was administered 10mL Robitussin syrup and 1 lozenge Cepacol. 22:28 Pt reevaluation. Pt reported significant improvement in symptoms and less coughing. I discussed the importance of handling her diabetes better which pt understood. Pt was discharged home with Lantus Solostart injection pen and instructions to take azithromycin and Robitussin-DM. Pt was instruction to follow up at [facility]. Prior to discharge usual and customary precautions were reviewed with the patient and family including follow-up instr uctions and reasons to return to the Emergency Department if condition worsens, does not improve asexpected, or other new concerns arise. ASSESSMENT AND PLAN Final diagnoses: Acute bronchitis, unspecified organism Type 2 diabetes mellitus not at goal DISPOSITION: Discharged The patient's pain was managed to an adequate level weighing risk vs. benefit of further medications. Upon departure from the Emergency Department, the patient's pain was 6 on a zero to ten scale. Condition at departure from the Emergency Department: Improved PCP: Provider None MDM Number of Diagnoses or Management Options Acute bronchitis, unspecified organism: Type 2 diabetes mellitus not at goal: Amount and/or Complexity of Data Reviewed Clinical lab tests: ordered and reviewed Tests in the radiology section of CPT??: reviewed Review and summarize past medical records: yes Independent visualization of images, tracings, or specimens: yes This documentation is recorded by Miley Lopez acting as Scribe under the direction and presence of Broderick Foster MD. Broderick Foster MD: I personally performed the services recorded by the scribe in my presence. I confirm the scribe's documentation has been reviewed by me to accurately and completely record my work, treatment, procedures, and medical decision making. 03/09/2016 21:14 No flowsheet data found. documented in this encounter Plan of Treatment Upcoming Encounters Date Type Department Care Team (Late st Contact Info) Description 02/21/2024 9:45 EDT Office Visit [facility] Adult Primary Care - [address] [phone] Carrington Calderon MD [address] [place] [address] Level 1 [place] [phone] 02/27/2024 8:30 EDT Telemedicine [facility] Sleep Program - [address] [place] [address] Rn, Sleep 02/29/2024 10:30 EDT Appointment [facility] Radiology Nuclear Medicine and PET - [address] [address] 02/29/2024 14:30 EDT Appointment [facility] Radiology Nuclear Medicine and PET [address] [address] 03/01/2024 8:00 EDT Appointment [facility] Radiology Nuclear Medicine and PET [address] [address] 03/01/2024 9:30 EDT Appointment [facility] Radiology Nuclear Medicine and PET [address] [address] documented as of this encounter Procedures Procedure Name Priority Date/Time Associated Diagnosis Comments GLUCOSE, GLUCOMETER Routine 03/08/2016 2 1:11 EDT BACTERIAL CULTURE, BLOOD Routine 03/08/2016 18:47 EDT BACTERIAL CULTURE, BLOOD Routine 03/08/2016 18:47 EDT GLUCOSE, GLUCOMETER Routine 03/08/2016 1 7:24 EDT documented in this encounter Results * (ABNORMAL) GLUCOSE, GLUCOMETER (03/08/2016 21:11 EDT) Glucose, Fingerstick 239(H) 70 - 100 mg/dl 03/08/2016 21:12 EDT [facility] Belt Picker ID [id number] 03/08/2016 21:12 EDT [facility] Comment:[facility] BLOOD SPECIMEN / Unknown 03/08/2016 21:11 EDT 03/08/2016 21:12 EDT Provider Unknown CHEMISTRY & BLOOD GA S ORDERABLES [facility] [address] [place] [address] * BACTERIAL CULTURE, BLOOD (03/08/2016 18:47 EDT) Result No growth 03/13/2016 8:26 EDT [facility] Blood specimen (specimen) BLOOD SPECIMEN / Unknown 03/08/2016 18:47 EDT 03/08/2016 20:07 EDT Comment:Left~Antecubital Broderick Foster MD MICROBIOLOGY - GENE RAL ORDERABLES Performing Organization Address [facility]/ZIP Co de Phone Number [facility] [address] [place] [address] * BACTERIAL CULTURE, BLOOD (03/08/2016 18:47 EDT) Result No growth 03/13/2016 8:26 EDT [facility] Blood specimen (specimen) BLOOD SPECIMEN / Unknown 03/08/2016 18:47 EDT 03/08/2016 20:05 EDT Comment:Right~Antecubital Broderick Foster MD MICROBIOLOGY - GENE RAL ORDERABLES Performing Organization Address [facility] Co de Phone Number [facility] [address] [place] [address] * (ABNORMAL) GLUCOSE, GLUCOMETER (03/08/2016 17:24 EDT) Glucose, Fingerstick 163(H) 70 - 100 mg/dl 03/08/2016 17:26 EDT [facility] Belt Picker ID [id number] 03/08/2016 17:26 EDT [facility] Comment:Test Performed by [facility] BLOOD SPECIMEN / Unknown 03/08/2016 17:24 EDT 03/08/2016 17:26 EDT Provider Unknown CHEMISTRY & BLOOD GA S ORDERABLES Performing Organization Address [facility]/ZIP Co de Phone Number [facility] [address] [place] [address] documented in this encounter Visit Diagnoses Diagnosis Acute bronchitis, unspecified organism- Primary Type 2 diabetes mellitus not at goal ([facility]) Type II or unspecified type diabetes mellitus without mention of complication, not stated as uncontrolled documented in this encounter Administered Medications Inactive Administered Medications - up to 3 most recent administrations Medication Order MAR Action Action Date Dose Rate Site azithromycin (ZITHROMAX) 500 mg in dextrose 5% (D5W) 250 mL IVPB 500 mg, intravenous, Administer over 60 Minutes, NOW X1, 1 dose, On Tue03/08/16 at 1845, STAT New Bag 03/08/2016 19:17 EDT 500 mg benzocaine-menthol (CEPACOL) 15-3.6 mg per lozenge 1 Lozenge 1 Lozenge, buccal, NOW X1, 1 dose, On Tue03/08/16 at 2145, STAT Given 03/08/2016 22:06 EDT 1 Lozenge cefTRIAXone (ROCEPHIN) 1,000 mg in sodium chloride (NS MBP) 0.9 % 50 mL IVPB 1,000 mg, intravenous, Administer over 30 Minutes, NOW X1, 1 dose, On Tue03/08/16 at 1845, STAT New Bag 03/08/2016 19:08 EDT 1,000 mg dextromethorphan-guaifenesin (ROBITUSSIN DM) 10-100 mg/5 mL syrup 10 mL 10 mL, oral, NOW X1, 1 dose, On Tue03/08/16 at 2145, STAT Given 03/08/2016 22:06 EDT 10 mL HYDROmorphone (PF) (DILAUDID) 1 mg/mL injection 1 mg 1 mg, intravenous, NOW X1, 1 dose, On Tue03/08/16 at 2030, STAT Given 03/08/2016 20:23 EDT 1 mg insulin glargine (LANTUS SOLOSTAR) injection pen 30 Units 30 Units, subcutaneous, NOW X1, 1 dose, On Tue03/08/16 at 2245, STAT Given 03/08/2016 23:06 EDT 30 Units ondansetron (PF) (ZOFRAN) injection 4 mg 4 mg, intravenous, NOW X1, 1 dose, On Tue03/08/16 at 1930, STAT Given 03/08/2016 19:55 EDT 4 mg sodium chloride 0.9 % BOLUS 2,000 mL 2,000 mL, intravenous, NOW X1, 1 dose, On 03/08/16 at 1845, STAT New Bag 03/08/2016 19:08 EDT 2,000 mL documented in this encounter Discontinued Medications Medication Sig Discontinue Reason Start Date End Da te insulin glargine (LANTUS SOLOSTAR) 100 unit/mL (3 mL) injection pen Inject into the skin at bedtime. 03/08/2016 documented as of this encounter Active and Recently Administered Medications Times are shown in EDT. Scheduled Medication Order 03/06/2016 03/07/2016 03/08/2016 azithromycin (ZITHROMAX) 500 mg in dextrose 5% (D5W) 250 mL IVPB (COMPLETED) 500 mg, intravenous, Administer over 60 Minutes, NOW X1, 1 dose, On Tue03/08/16 at 1845, STAT 1917 (New Bag - Prov ider: Nini Schultz RN)2019 (Completed - Provider: Nini Schultz RN) benzocaine-menthol (CEPACOL) 15-3.6 mg per lozenge 1 Lozenge (COMPLETED) 1 Lozenge, buccal, NOW X1, 1 dose, On 03/08/16 at 2145, STAT 2206 (Given - Provid er: Nini Schultz RN) cefTRIAXone (ROCEPHIN) 1,000 mg in sodium chloride (NS MBP) 0.9 % 50 mL IVPB (COMPLETED) 1,000 mg, intravenous, Administer over 30 Minutes, NOW X1, 1 dose, On 03/08/16 at 1845, STAT 1908 (New Bag - Prov ider: Nini Schultz RN)191 (Completed - Provider: Nini Schultz RN) dextromethorphan-guaifenesin (ROBITUSSIN DM) 10-100 mg/5 mL syrup 10 mL (COMPLETED) 10 mL, oral, NOW X1, 1 dose, On 03/08/16 at 2145, STAT 2206 (Given - Provid er: Nini Schultz RN) HYDROmorphone (PF) (DILAUDID) 1 mg/mL injection 1 mg (COMPLETED) 1 mg, intravenous, NOW X1, 1 dose, On Tue03/08/16 at 2030, STAT 2022 (Given - Provid er: Nini Schultz, MARCELO) insulin glargine (LANTUS SOLOSTAR) injection pen 30 Units (COMPLETED) 30 Units, subcutaneous, NOW X1, 1 dose, On Tue03/08/16 at 2245, STAT 2306 (Given - Provid er: Jose Thompson, MARCELO) ondansetron (PF) (ZOFRAN) injection 4 mg (COMPLETED) 4 mg, intravenous, NOW X1, 1 dose, On Tue03/08/16 at 1930, STAT 1955 (Given - Provid er: Nini Schultz, MARCELO) sodium chloride 0.9 % BOLUS 2,000 mL (COMPLETED) 2,000 mL, intravenous, NOW X1, 1 dose, On Tue03/08/16 at 1845, STAT 1908 (New Bag - Prov ider: Nini Schultz RN)2209 (Completed - Provider: Nini Schultz RN) documented in this encounter Orders Lab Orders Without Results Count Last Ordered D ate First Ordered Date POCT GLUCOSE 1 03/08/2016 documented in this encounter Care Teams Liberal Arts Dean Relationship Specialty Start Date End Date None, Provider PCP - General 03/08/16 08/21/18 documented as of this encounter
--- OUTSIDE RECORDS SUMMARY | 2023-12-16 00:46 | XMS_ITS | Encounter Summary ---
Author Organization [facility] Address [address] [place] [address] Care Team Providers Care Sap Technical Developer Name Role Phone Benita Shafer GUSTAVO Primary Care Provider [phone] Encounter Details Date Type Department Care Team (Late st Contact Info) Description 10/24/2018 14:34 EDT - 10/24/2018 23:59 EDT Hospital Encounter [facility] [address] [place] [address] Ana Coronado MD [address] [facility], [address] [place] [address] Discharge Disposition: Auto Discharge Social [...] as of this encounter Discharge Diagnoses Diagnosis O26.91 related conditions, unspecified, first trimester-O26.91[ICD-10-CM] documented in this encounter Medications at Time of Discharge Medication Sig Dispensed Refills Start Date End Date blood glucose test strips One Touch Verio IQ or other brand compatible with meter and covered by patient's insurance. Testing QID. 100 Each 2 10/19/2018 10/01/2019 folic acid (FOLVITE) 1 mg tablet Take [...] ORAL) Take by mouth. 06/06 UNKNOWN TO PATIENTIndications:bir th control Take by mouth. 10/01/2019 documented as of this encounter Discharge Disposition Disposition Code Departure Means Destination Auto Discharge Home documented in this encounter Plan of Treatment Upcoming Encounters Date Type Department Care Team (Late st Contact Info) Description 02/21/2024 9:45 EDT Office Visit [facility] Adult Primary Care - [address] [address] Carrington Calderon MD 1 [facility] 1 [place] [address] 02/27/2024 8:30 EDT Telemedicine [facility] Sleep Program - [address] [address] Rn, Sleep 02/29/2024 10:30 EDT Appointment [facility] Nuclear Medicine and PET - [address] [address] 02/29/2024 14:30 EDT Appointment [facility] Radiology Nuclear Medicine and PET - [address] [address] 03/01/2024 8:00 EDT Appointment [facility] Radiology Nuclear Medicine and PET [address] [address] 03/01/2024 9:30 EDT [facility]ment [facility] [place] [address] documented as of this encounter Visit Diagnoses Not on filedocumented in this encounter Care Teams Sap Technical Developer Relationship Specialty Start Date End Date Benita Shafer NP PCP - General 08/22/18 06/17/19 documented as of this encounter
--- OUTSIDE RECORDS SUMMARY | 2023-12-16 00:46 | XMS_ITS | Encounter Summary ---
Author Organization [facility] Address [address] [place] [address] Care Team Providers Care Weapons And Tactics Instructor Name Role Phone Benita Shafer DAILY RELEASE AND DUPE PRINTER Primary Care Provider [phone] Reason for Visit * Reason Comments Shingles States that she thin ks she is having a shingles flare on face and head, states had outbreak 3 weeks ago in same areas Encounter Details Date Type Department Care Team (Late st Contact Info) Description 08/22/2018 9:08 EDT - 08/22/2018 12:20 EDT Emergency [facility] Emergency Department - [address] [address] Doris Moreno MD [address] [place] [address], [address] 1 [place] [phone] Emergency, MD Ekaterina Trigeminal herpes zoster (Primary Dx) Discharge Disposition: Home or Self [...] Sign Reading Time Taken Comments Blood Pressure 111/91 08/22/2018 1217 EDT Pulse 75 08/22/2018 1217 EDT Temperature 36.6 ??C (97.9 ??F) 08/22/2018 0912 EDT Respiratory Rate 20 08/22/2018 1217 EDT Oxygen Saturation 100% 08/22/2018 1217 EDT Inhaled Oxygen Concentration - - Weight - - Height - - Body Mass Index - - documented in this encounter Discharge Diagnoses Diagnosis B02.22 Postherpetic trigeminal neuralgia-B02.22[ICD-10-CM] R51 Headache-R51[ICD-10-CM] R20.2 Paresthesia of skin-R20.2[ICD-10-CM] E66.9 Obesity, unspecified-E66.9[ICD-10-CM] F41.8 Other specified anxiety disorders-F41.8[ICD-10-CM] E11.9 Type 2 diabetes mellitus without complications-E11.9[ICD-10-CM] 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 However, due to the symptoms the slight erythema that I am seeing the distribution of your discomfort as it does seem like you are heading for another flare therefore we will go ahead and start Valtrex twice a day for 7 days. We will also give you gabapentin 100 mg to take every 8 hours to start treating any possible neuropathic pain. Please continue your acyclovir ophthalmic drops although you are not experiencing any eye discomfort continuing that to completion of therapy is very important. Please follow-up with your nuclear chemistry technician as previously scheduled. Please contact your primary care physician to let them know that you are back on treatment and for follow-up in the office at the end of the week to recheck you for any signs of vesicles Oertli return to the emergency department at any time if new symptoms changes symptoms or concern * Attachments The following attachments cannot be sent through Care Everywhere. * SHINGLES (BRAZILIAN) * NEUROPATHIC PAIN (BRAZILIAN) documented in this encounter Medications at Time of Discharge Medication Sig Dispensed Refills Start Date End Date gabapentin (NEURONTIN) 100 mg capsule Take 1 capsule by mouth 3 times daily for 7 days. 21 capsule 08/22/2018 08/29/2018 insulin aspart U-100 (NOVOLOG FLEXPEN) 100 unit/mL [...] ORAL) Take by mouth. 06/06 UNKNOWN TO PATIENTIndications:mehdi h control Take by mouth. 10/01/2019 valACYclovir (VALTREX) 500 mg tablet Take 2 tablets by mouth 3 times daily for 7 days. 42 tablet 08/22/2018 08/29/2018 documented as of this encounter Ordered Prescriptions Prescription Sig Dispensed Refills Start Date End Da te valACYclovir (VALTREX) 500 mg tablet Take 2 tablets by mouth 3 times daily for 7 days. 42 tablet 08/22/2018 08/29/2018 gabapentin (NEURONTIN) 100 mg capsule Take 1 capsule by mouth 3 times daily for 7 days. 21 capsule 08/22/2018 08/29/2018 documented in this encounter Discharge Disposition Disposition Code Departure Means Destination Home or Self Care Walk-out Home documented in this encounter ED Notes * Baldemar Beckham, RN - 08/22/2018 1205 EDT POCT Glucose 234 * Doris Moreno MD, MD - 08/22/2018 1146 EDT This patient received an evaluation and medical screening exam for emergent medical conditions at the [facility] on 08/22/2018 Scribe attestation: This documentation is recorded by Mary Phelan acting as Scribe under the direction and presence of Doris Moreno MD. Doris Moreno MD: I personally performed the services recorded by the scribe in my presence. I confirm the scribe's documentation has been reviewed by me to accurately and completely record my work, treatment, procedures, and medical decision making. HPI Cristy Luo is a 33 y.o. female with PMH including obesity, migraine with aura, anxiety, depression, and type 2 DM who presents to the ED for shingles. Patient reports she was diagnosed with shingles in the trigeminal distribution involving her eye three weeks ago and successfully completed treatment. She notes she was cleared s/p treatment for two weeks. Patient reports she is continually taking the steroid eye drops she was prescribed by Ophthalmology and that she has a follow up once she completes the bottle of drops. Patient endorses tenderness around her eye and on her head. She further endorses chills, a tingling sensation on her head and pressure in her eye. Patient denies eye p ain, fever, or a rash. Patient notes her sugars have been running high since her shingles diagnosis. History was provided by: the patient and medical records Patient's pertinent PMH, FH, SH were reviewed and updated PRN. ROS A 10-point review of systems was performed. The patient answered negative to all questions with theexceptions of those explicitly detailed as positives in the HPI. Pertinent negatives are also explicitly stated. Physical Exam Vital Signs Vitals Reassessment?: Yes Temp: 36.6 ??C (97.9 ??F) Temp src: Oral Pulse: 75 Resp: 20 SpO2: 100 % BP: (!) 111/91 BP Device: BP Machine Patient Position: Sitting BP Cuff Location: Right arm O2 Device: None (Room air) Nursing notes and vital signs were reviewed. Constitutional: Well appearing in no acute distress Head: 1cm erythematous spots on cheek and forehead. 0.5 cm erythematous spots on scalp. No lesions,crusting, or vesicles. Eyes: Pupils equal and reactive to light, no scleral icterus. Mildly swollen left eyelid. Mouth: Moist oral mucosa without apparent lesions Neck: Full ROM, no cervical LAD Heart: RRR without MRG Lungs: Clear to auscultation Abdomen: Soft NT/ND, positive BS Skin: No overt rashes on exposed skin Extremities: Moving spontaneously, warm and well perfused. Neuro: Grossly neurologically intact with normal speech Psych: No agitation or overt thought disorder Laboratory Results Labs Reviewed GLUCOSE, GLUCOMETER - Abnormal Result Value Status Glucose, Fingerstick 234 (*) Final Bathhouse Attendant ID [id number] Final POCT GLUCOSE Procedures Procedures ED course/Medical Decision Making A medical screening exam was performed. The patient is a 33 y.o. female with a history of obesity, migraine with aura, anxiety, depression,and type 2 DM who presents to the ED with suspected shingles flare. Patient reports being diagnosedwith shingles three weeks ago involving her eye and feels as if she having another flare. Physical exam was significant for 1 cm spots of erythema on cheek and forehead, 0.5 cm sports of erythema on scalp, no lesions, crusting, or vesicles, and mild left eyelid welling. Patient had labs that were reviewed independently by myself, significant for a glucose of 234. Patient was discharged home with a prescription for Valtrex and Gabapentin. MDM: post herpetic neuralgia vs. reactivation. Due to the fact that she had a period of being pain free we will treat for reactivation but also consider the possibility of trigeminal neuralgia by prescribing Gabapentin. Pain management The patient's pain was managed to an adequate level weighing risk vs. benefit of further medications. Upon departure from the Emergency Department, the patient's pain was 7 on a zero to ten scale. Any [...] was at risk of sudden decompensation. * Gala Ma RN - 08/22/2018 1115 EDT Faint red Pinpoint rash scattered to Rt side of head and forehead Did not see rash or lesions on scalp PERRLA: 3mm documented in this encounter Plan of Treatment Upcoming Encounters Date Type Department Care Team (Late st Contact Info) Description 02/21/2024 9:45 EDT Office Visit [facility] Adult Primary Care - [address] [phone] Carrington Calderon MD [address] [place] [phone] 02/27/2024 8:30 EDT Telemedicine [facility] Sleep Program - [address] [address] Rn, Sleep 02/29/2024 10:30 EDT Appointment [facility] Radiology Nuclear Medicine and PET [address] [address] 02/29/2024 14:30 EDT Appointment [facility] Radiology Nuclear Medicine and PET [address] [phone] 03/01/2024 8:00 EDT Appointment [facility] Radiology Nuclear Medicine and PET [address] [phone] 03/01/2024 9:30 EDT Appointment [facility] Radiology Nuclear Medicine and PET [address] [phone] documented as of this encounter Procedures Procedure Name Priority Date/Time Associated Diagnosis Comments GLUCOSE, GLUCOMETER Routine 08/22/2018 1 2:04 EDT documented in this encounter Results * (ABNORMAL) GLUCOSE, GLUCOMETER (08/22/2018 12:04 EDT) Glucose, Fingerstick 234(H) 70 - 100 mg/dl 08/22/2018 12:06 EDT [facility] Bathhouse Attendant ID [id number] 08/22/2018 12:06 EDT [facility] Comment:Test Performed by Nu ing Services BLOOD SPECIMEN / Unknown 08/22/2018 12:04 EDT 08/22/2018 12:06 EDT Provider Unknown MD CHEMISTRY & BLOOD GA S ORDERABLES [facility] [address] [place] [address] documented in this encounter Visit Diagnoses Diagnosis Trigeminal herpes zoster- Primary Postherpetic trigeminal neuralgia documented in this encounter Historical Medications * This list may reflect changes made after this encounter. Medication Sig Dispensed Refills Start Date End Date UNKNOWN TO PATIENTIndications: control Take by mouth. 10/01/2019 insulin aspart U-100 (NOVOLOG FLEXPEN) 100 unit/mL injectable pen Inject 2-4 Units into the skin 3 times daily with meals. Sliding scale 10/01/2019 insulin glargine (LANTUS SOLOSTAR) 100 unit/mL (3 mL) injection pen Inject 10 Units into the skin at bedtime. 11/26/2019 added in this encounter Orders Lab Orders Without Results Count Last Ordered D ate First Ordered Date POCT GLUCOSE 1 08/22/2018 documented in this encounter Care Teams Weapons And Tactics Instructor Relationship Specialty Start Date End Date Benita Shafer NP PCP - General 08/22/18 06/17/19 documented as of this encounter
--- OUTSIDE RECORDS SUMMARY | 2023-12-16 00:46 | XMS_ITS | Encounter Summary ---
Author Organization [facility] Address [address] [place] [address] Care Team Providers Care Wireworker Name Role Phone None, Provider Primary Care Provider Unavailabl e Reason for Visit * Reason Onset Date Comments Follow-up 07/20/2016 Results 07/20/2016 Encounter Details Date Type Department Care Team (Late st Contact Info) Description 07/20/2016 Telephone [facility] Urgent Care - [address] [phone] Moy Marquez MD 0 [place] [phone] Follow-up; Results Social History Tobacco Use Types Packs/Day [...] encounter Miscellaneous Notes * Telephone Encounter - Moy Marquez MD - 07/24/2016 0026 EST Called and spoke to patient follow up with recent visit. She notes that cyst has improved. I discussed that her hemoglobin A1c is quite elevated at 11.2, indicating that she does have poorlycontrolled diabetes. 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 She will likely need further agents. She does have a follow-up appointment in three days with the [facility] to establish care. I strongly encouraged her to keep this appointment. She looks forward to getting better control of her diabetes. She certainly should follow-up acutely change or worsening symptoms. She may always call if she needs help arranging appointments. Questions and concerns were answered. Patient expressed understanding of plan. Patient appreciative of call. Signed: Moy Marquez MD 07/24/2016 10:55 * Telephone Encounter - Moy Marquez MD - 07/20/2016 1202 EST Attempted to contact patient regarding elevated hemoglobin A1c, indicating uncontrolled diabetes, to discuss follow up. No answer, generic voicemail. Will try back. Signed: Moy Marquez MD 07/20/2016 12:04 documented in this encounter Plan of Treatment Upcoming Encounters Date Type Department Care Team (Late st Contact Info) Description 02/21/2024 9:45 EDT Office Visit [facility] Adult Primary Care - [address] [phone] Carrington Calderon MD [address] [place] [phone] 02/27/2024 8:30 EDT Telemedicine [facility] Sleep Program - [address] [address] Rn, Sleep 02/29/2024 10:30 EDT Appointment [facility] Radiology Nuclear Medicine and PET - [address] [address] 02/29/2024 14:30 EDT Appointment [facility] Radiology Nuclear Medicine and PET - [address] [address] 03/01/2024 8:00 EDT Appointment [facility] Radiology Nuclear Medicine and PET - [address] [address] 03/01/2024 9:30 EDT Appointment [facility] Radiology Nuclear [place] [address] documented as of this encounter Visit Diagnoses Not on filedocumented in this encounter Care Teams Wireworker Relationship Specialty Start Date End Date None, Provider PCP - General 03/08/16 08/21/18 documented as of this encounter
--- OUTSIDE RECORDS SUMMARY | 2023-12-16 00:46 | XMS_ITS | Encounter Summary ---
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 OPERATOR (Routine) - New Request Specialty Diagnoses / Procedures Referred By Kit t Referred To Contact Diagnoses Missed menses Procedures BLEACH TESTER US OB FIRST TRIMESTER TRANSVAGINAL Nohemy Sales MD [address] [place] [address], [address] [place] [address] Referral ID Status Reason Start Date Expiration Date V isits Requested Visits Authorized [id number] New Request 10/19/2018 1 1 Reason for Visit * Reason Onset Date Comments 10/19/2018 Encounter Details Date Type Department Care Team (Late st Contact Info) Description 10/19/2018 Telephone [facility] Obstetrics & Midwifery [address] [address] Mary Regalado RN Social History Tobacco Use Types Packs/Day [...] on file documented as of this encounter Ordered Prescriptions Prescription Sig Dispensed Refills Start Date End Da te blood glucose test strips One Touch Verio IQ or other brand compatible with meter and covered by patient's insurance. Testing QID. 100 Each 2 10/19/2018 10/01/2019 lancets One Touch Delica or other brand compatible with lancing device and covered by patient's insurance. 100 Each 2 10/19/2018 10/01/2019 folic acid (FOLVITE) 1 mg tablet Take 3 Tabs by mouth daily. Through first trimester 150 Tab 10/19/2018 06/18/2019 documented in this encounter Miscellaneous Notes * Telephone Encounter - Mary Regalado RN - 10/19/2018 1019 EDT .Initial Appt Screening Form Best Contact Number: [phone] [facility] Provider: HUGO for Type 2 diabetes LMP/Pt estimate gestational age: LMP: 3-8-19, now 9 weeks +6 days, missed cycle in September, reports regular cycles. +UPT at home on Sat G/P: P: 0 0 5 0 HEIGHT: 64 WEIGHT AT LMP: 215lbs Blood type : B- Current medications (prescribed and not prescribed): Lantus QHS, Novolog TID w/ meals, 500mg Metformin BID, PNV. Advised Folic acid and e-scribed to patient's preferred pharmacy Are you a smoker?: Quit with +UPT, in the past would smoke up to 1/2 PPD. Occasional MJ Prior US with heartbeat? yes ___x__no Risk Factors: YES NO Abd pain or vag bleeding? x Prior pelvic/tubal surgery or ruptured appendix? x History of PID/GC/Chlamydia? x Prior tubal ? x Do you have an IUD in place now? x Do you have a history of infertility for >1 year? x Do you have a chronic medical illness: explain Type 2 diabetes, depression (treating occasionally with MJ) Prior outcomes: Have you had problems with any prior pregnancies? 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 All except 1 required D&C Ultrasound scheduled: ___x___yes: Date: October 24 at 1:45pm Patient calling to establish OB care. She reports h/o 5 miscarriages and traumatic experience with [facility] OB and would like to come here. Type 2 diabetic on Metformin and insulin- would likely get care with MFM. She notes poor control of her blood sugars and working closely with PCP on getting her BS within range. Most recent HgbA1c by her report was 10.6% about 5 months ago. Reviewed combined MFM/Endo clinic and patient would prefer to follow with her PCP for diabetes care. Advised patient OB providers would like to see her BS to assess control throughout and reviewed taking blood sugars QID and use of log book. She needs refill on test strips and lancets and these were e-sc ribed to her pharmacy per her request. Additionally, 3mg Folic acid was also e- scribed to patient'spharmacy. Scheduled for first trimester BLEACH TESTER US for October 24 at 1:45pm- she would like to wait to schedule initial visit given her anxiety and taking things a day at a time. If viable- will need to schedule CT at check out. packet reviewed and mailed to patient with blood sugar log book. Total time spent: 20 minutes documented in this encounter Plan of Treatment Upcoming Encounters Date Type Department Care Team (Late st Contact Info) Description 02/21/2024 9:45 EDT Office Visit [facility] Adult Primary Care - [address] [phone] Carrington Calderon MD 1 [facility] 1 [place] [phone] 02/27/2024 8:30 EDT Telemedicine [facility] Sleep Program - [address] [phone] Rn, Sleep 02/29/2024 10:30 EDT Appointment [facility] Radiology Nuclear Medicine and PET - [address] [phone] 02/29/2024 14:30 EDT Appointment [facility] Radiology Nuclear Medicine and PET - [address] [phone] 03/01/2024 8:00 EDT Appointment [facility] Radiology Nuclear Medicine and PET [address] [phone] 03/01/2024 9:30 EDT Appointment [facility] Radiology Nuclear [facility] and PET [address] [phone] documented as of this encounter Procedures Procedure Name Priority Date/Time Associated Diagnosis Comments BLEACH TESTER US OB FIRST TRIMESTER TRANSVAGINAL Routine 10/24/2018 13:58 EDT Missed menses documented in this encounter Results * BLEACH TESTER US OB FIRST TRIMESTER TRANSVAGINAL (10/24/2018 13:58 EDT) Anatomical Region Laterality Modality Other 10/24/2018 13:5 8 EDT 10/24/2018 17:08 EDT Narrative 10/24/2018 17:08 EDT Indication Early monitoring. Type II DM. Recurrent miscarriages. History ======= Previous Outcomes ?6 Para ?? 0 [facility] children born (T) ?0 [facility] children born (P) ?0 Abortions (A) ??5 [facility] living children (L) ??0 Number of fetuses: 1. Dating ======= Method of dating: ??based on the LMP LMP on: ?08/11/2018 [place] by LMP ??10 w + 4 d IVAN by LMP : ? 05/18/2019 Assigned: ??Dating performed on 10/24/2018 Based on the LMP Assigned GA ?10 w + 4 d Assigned IVAN: ??05/18/2019 Assessment Gestational sac: Visualized. Location: Interstitial . Yolk sac: Visualized. Amniotic sac: Visualized. Embryo: Not visualized. Impression OB transvaginal [id number] 1. Small gestational sac with a yolk [...] findings discussed w/patient. DATE OF SERVICE: 10/24/2018 Procedure Note Ana Coronado MD, MD - 10/24/2018 Indication Early monitoring. Type II DM. Recurrent [...] Visualized. Embryo: Not visualized. Impression OB transvaginal [id number] 1. Small gestational sac with a yolk [...] findings discussed w/patient. DATE OF SERVICE: 10/24/2018 Nohemy Sales MD IMG US BLEACH TESTER ORDERABLE S documented in this encounter Visit Diagnoses Diagnosis Missed menses- Primary Absence of menstruation documented in this encounter Care Teams Securities Trader Relationship Specialty Start Date End Date Benita Shafer NP PCP - General 08/22/18 06/17/19 documented as of this encounter
--- OUTSIDE RECORDS SUMMARY | 2023-12-16 00:46 | XMS_ITS | Encounter Summary ---
Author Organization [facility] Address [address] [place] [address] Care Team Providers Care Assisted Living Executive Director Name Role Phone None, Provider Primary Care Provider Unavailabl e Reason for Visit * Reason Onset Date Comments Other 07/30/2016 Encounter Details Date Type Department Care Team (Late st Contact Info) Description 07/30/2016 Telephone [facility] Ophthalmology - [facility] [address] [place], [place] [id number] Broderick Schwartz MD [address] [facility], Level [address] [place] [address] Other Social History Tobacco Use Types Packs/Day [...] Miscellaneous Notes * Telephone Encounter - Catherine Dhillon, MARCELO - 07/30/2016 1609 EST Tried one more time, still no go. Placed letter in mail today. [phone] Called pt. She states if fax will not go through can mail to her. Verified address. Stated will try one more time but if it does not go through will place in mail today. She verbalized understanding and had no further questions. Faxed letter to # below. Tried two times however fax will not go through. * Telephone Encounter - Julio Naomi - 07/30/2016 1417 EST Patient was seen today and needs a letter faxed to work: [phone]. Just needs to state she had an appointment here today with Dr Schwartz @ 12:30. documented in this encounter Plan of Treatment Upcoming Encounters Date Type Department Care Team (Late st Contact Info) Description 02/21/2024 9:45 EDT Office Visit [facility] Adult Primary Care - [address] [id number] Carrington Calderon MD [address] [place] [phone] 02/27/2024 8:30 EDT Telemedicine [facility] Sleep Program - [address] [address] Rn, Sleep 02/29/2024 10:30 EDT Appointment [facility] Radiology Nuclear Medicine and PET [address] [phone] 02/29/2024 14:30 EDT Appointment [facility] Radiology Nuclear Medicine and PET [address] [id number] 03/01/2024 8:00 EDT Appointment [facility] Radiology Nuclear Medicine and PET [address] [id number] 03/01/2024 9:30 EDT Appointment [facility] Radiology Nuclear Medicine and PET [address] [id number] documented as of this encounter Visit Diagnoses Not on filedocumented in this encounter Care Teams Assisted Living Executive Director Relationship Specialty Start Date End Date None, Provider PCP - General 03/08/16 08/21/18 documented as of this encounter
--- OUTSIDE RECORDS SUMMARY | 2023-12-16 00:46 | XMS_ITS | Encounter Summary ---
Author Organization [facility] Address [address] [place] [address] Care Team Providers Care Trap Operator Name Role Phone Benita Shafer CLIENT DEVELOPMENT CONSULTANT Primary Care Provider [phone] Encounter Details Date Type Department Care Team (Late st Contact Info) Description 10/26/2018 Phlebotomy Only [facility] - [address] [address] Slot Floor Attendant, Outpatient 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 (Primary Dx) [...] Visit [facility] Adult Primary Care - [address] [address] Carrington Calderon MD 1 [facility] Level 1 [place] [address] 02/27/2024 8:30 EDT Telemedicine [facility] Sleep Program - [address] [place] [address] Rn, Sleep 02/29/2024 10:30 EDT Appointment [facility] Radiology Nuclear Medicine and PET - [address] [address] 02/29/2024 14:30 EDT Appointment [facility] Radiology Nuclear Medicine and PET [address] [address] 03/01/2024 8:00 EDT Appointment [facility] Radiology Nuclear Medicine and PET [address] [address] 03/01/2024 9:30 EDT Appointment [facility] Radiology Nuclear Medicine and PET [address] [address] documented as of this encounter Procedures Procedure Name Priority Date/Time Associated Diagnosis Comments COMPLETE BLOOD COUNT Routine 10/26/2018 12:28 EDT 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 BUN Routine 10/26/2018 12:28 EDT 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 ALT Routine 10/26/2018 12:28 EDT 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 AST Routine 10/26/2018 12:28 EDT 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 CREATININE Routine 10/26/2018 12:28 EDT 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 documented in this encounter Results * BUN (10/26/2018 12:28 EDT) BUN 11 10 - 26 mg/dl 10/26/2018 13:09 EDT [facility] Blood specimen (specimen) BLOOD SPECIMEN / Unknown 10/26/2018 12:28 EDT 10/26/2018 12:42 EDT Charu Flynn MD CHEMISTRY & BLOO D GAS ORDERABLES [facility] [address] [place] [address] * (ABNORMAL) CREATININE (10/26/2018 12:28 EDT) Creatinine 0.44(L) 0.52 - 1.04 mg/dl 10/26/2018 13:09 EDT [facility] GFR, Calculated 133 >60 ml/min/1.7 3m2 10/26/2018 13:09 EDT [facility] Comment: eGFR calculated using CKD-EPI equation for non Americans. Multiply eGFR by 1.16 for Americans. Blood specimen (specimen) BLOOD SPECIMEN / Unknown 10/26/2018 12:28 EDT 10/26/2018 12:42 EDT Charu Flynn MD CHEMISTRY & BLOO D GAS ORDERABLES Performing Organization Address [facility] Co de Phone Number [facility] [address] [place] [phone] * ALT (10/26/2018 12:28 EDT) ALT 22 <53 U/L 10/26/2018 13:09 EDT [facility] Blood specimen (specimen) BLOOD SPECIMEN / Unknown 10/26/2018 12:28 EDT 10/26/2018 12:42 EDT Charu Flynn MD CHEMISTRY & BLOO D GAS ORDERABLES Performing Organization Address [facility] Co de Phone Number [facility] [address] [place] [phone] * (ABNORMAL) AST (10/26/2018 12:28 EDT) AST 14(L) 15 - 46 U/L 10/26/2018 13:09 EDT [facility] Blood specimen (specimen) BLOOD SPECIMEN / Unknown 10/26/2018 12:28 EDT 10/26/2018 12:42 EDT Charu Flynn MD CHEMISTRY & BLOO D GAS ORDERABLES Performing Organization Address [facility]/ZIP Co de Phone Number [facility] [address] [place] [address] * COMPLETE BLOOD COUNT (10/26/2018 12:28 EDT) WBC 11.89 4.0 - 12.4 K/cmm 10/26/2018 13:06 EDT [facility] RBC 4.82 3.86 - 5.04 M/cmm 10/26/2018 13:06 EDT [facility] Hemoglobin 15.0 11.6 - 15.2 gm/dl 10/26/2018 13:06 T [facility] HCT 42.5 34.9 - 44.4 % 10/26/2018 13:06 [facility] MCV 88 81 - 98 fl 10/26/2018 13:06 T [facility] MCH 31.1 26.7 - 33.3 pg 10/26/2018 13:06 T [facility] MCHC 35.3 32.1 - 35.9 gm/dl 10/26/2018 13:06 T [facility] RDW-CV 11.9 <14.7 % 10/26/2018 13:06 [facility] RDW-SD 38.2 <50.4 fl 10/26/2018 13:06 [facility] PLT 358 141 - 377 K/cmm 10/26/2018 13:06 [facility] MPV 10.0 9.5 - 12.7 fl 10/26/2018 13:06 [facility] Blood specimen (specimen) BLOOD SPECIMEN / Unknown 10/26/2018 12:28 EDT 10/26/2018 12:42 EDT Charu Flynn MD HEMATOLOGY & PF4 ORDERABLES Performing Organization Address City/[facility]/ZIP Co de Phone Number [facility] [address] [place] [address] documented in this encounter Visit Diagnoses Diagnosis 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 - Primary documented in this encounter Care Teams Trap Operator Relationship Specialty Start Date End Date Benita Shafer NP PCP - General 08/22/18 06/17/19 documented as of this encounter
--- OUTSIDE RECORDS SUMMARY | 2023-12-16 00:46 | XMS_ITS | Encounter Summary ---
Author Organization [facility] Address [address] [place] [address] Care Team Providers Care Space Scheduler Name Role Phone Benita Shafer FISH SKINNING MACHINE FEEDER Primary Care Provider [phone] Encounter Details Date Type Department Care Team (Late st Contact Info) Description 10/26/2018 Phlebotomy Only [facility] - [address] [address] Police Liaison, Outpatient Complication of in first trimester (Primary Dx) [...] Info) Description 02/21/2024 9:45 EDT Office Visit [facility] Adult Primary Care - [address] [phone] Carrington Calderon MD 1 [facility] Level 1 [place] [address] 02/27/2024 8:30 EDT Telemedicine [facility] Sleep Program - [address] [place] [address] Rn, Sleep 02/29/2024 10:30 EDT Appointment [facility] Radiology Nuclear Medicine and PET - [address] [address] 02/29/2024 14:30 EDT Appointment [facility] Radiology Nuclear Medicine and PET [address] [address] 03/01/2024 8:00 EDT Appointment [facility] Radiology Nuclear Medicine and PET [address] [phone] 03/01/2024 9:30 EDT Appointment [facility] Radiology Nuclear Medicine and PET [address] [address] documented as of this encounter Procedures Procedure Name Priority Date/Time Associated Diagnosis Comments QUANT BETA HCG, Routine 10/26/2018 8:48 EDT Complication of in first trimester documented in this encounter Results * (ABNORMAL) QUANT BETA HCG, (10/26/2018 8:48 EDT) Quant Beta HCG, Preg 1,531(H) <5 mIU/ml 10/26/2018 9:52 EDT [facility] Comment: Reference Range: Negative = <5 Indeterminate = 5-25 recommend repeat in 48 hours. Positive = >25 The results of this assay can be falsely lowered due to the consumption of Biotin. Blood specimen (specimen) BLOOD SPECIMEN / Unknown 10/26/2018 8:48 EDT 10/26/2018 9:00 EDT Ana Coronado MD CHEMISTRY & BLOOD GAS ORDERABLES [facility] [address] [place] [address] documented in this encounter Visit Diagnoses Diagnosis Complication of in first trimester- Primary documented in this encounter Care Teams Space Scheduler Relationship Specialty Start Date End Date Benita Shafer NP PCP - General 08/22/18 06/17/19 documented as of this encounter
--- OUTSIDE RECORDS SUMMARY | 2023-12-16 00:46 | XMS_ITS | Encounter Summary ---
Author Organization [facility] Address [address] [place] [address] Care Team Providers Care Record Searcher Name Role Phone None, Provider Primary Care Provider Unavailabl e Reason for Visit * Reason Comments Threatened Miscarriage 6 weeks , started with brown discharge Cher, saw OB said it could be normal spotting. Tonight started with bright red vaginal bleeding. Problem Encounter Details Date Type Department Care Team (Late st Contact Info) Description 02/24/2017 22:50 EDT - 02/25/2017 3:35 EDT Emergency [facility] Emergency Department - [place] [address] [place] [id number] Kylah Whitaker PA-C [address] [place] [address], Level [address] [place] [address] Emergency, MD Ekaterina Vaginal bleeding (Primary Dx); Miscarriage Discharge Disposition: Home or Self Care Social [...] Sign Reading Time Taken Comments Blood Pressure 112/70 02/25/2017 0307 EDT Pulse 98 02/25/2017 0307 EDT Temperature 36.2 ??C (97.2 ??F) 02/24/2017 2255 EDT Respiratory Rate 20 02/25/2017 0307 EDT Oxygen Saturation 99% 02/25/2017 0307 EDT Inhaled Oxygen Concentration - - Weight - - Height - - Body Mass Index - - documented in this encounter Discharge Diagnoses Diagnosis O03.9 Complete or unspecified spontaneous without complication-O03.9[ICD-10-CM] Z3A.01 Less than 8 weeks gestation of -Z3A.01[ICD-10-CM] N93.9 Abnormal uterine and vaginal bleeding, unspecified-N93.9[ICD-10-CM] O24.111 Pre-existing type 2 diabetes, in , first trimester-O24.111[ICD-10-CM] E11.8 Type 2 diabetes mellitus with unspecified complications-E11.8[ICD-10-CM] O99.341 Other mental disorders complicating , first trimester-O99.341[ICD-10-CM] F41.8 Other specified anxiety disorders-F41.8[ICD-10-CM] O99.331 Smoking (tobacco) complicating , first trimester-O99.331[ICD-10-CM] F17.210 Nicotine dependence, cigarettes, uncomplicated-F17.210[ICD-10-CM] Z88.6 Allergy status to analgesic agent status-Z88.6[ICD-10-CM] documented in this encounter Discharge Instructions * Discharge Instructions* Kylah Whitaker PA - 02/25/2017 3:25 EDT Follow up with Affiliates call tomorrow for next available appointment Ibuprofen and or tylenol for pain as needed Return for pain, fever, vomiting, increased bleeding (consistently going through a pad per hour) Rest, elevate feet, and activity as tolerated * Attachments The following attachments cannot be sent through Care Everywhere. * MISCARRIAGE (ETHIOPIAN) * VAGINAL BLEEDING (ETHIOPIAN) documented in this encounter Medications at Time of Discharge Medication Sig Dispensed Refills Start Date End Date metFORMIN (GLUCOPHAGE) 500 mg tablet Take 1,000 mg by mouth daily. 11/26/2019 VIT 91/IRON/FOLIC/DHA ( + DHA ORAL) Take by mouth. 06/06 documented as of this encounter Discharge Disposition Disposition Code Departure Means Destination Home or Self Care Walk-out documented in this encounter ED Notes * Fran Diaz RN - 02/25/2017 0112 EDT Ultrasound at the bedside. * Fran Diaz RN - 02/25/2017 0111 EDT Blood drawn via saline lock per protocol, tiger and purple tube(s) sent to lab per order. * Kylah Whitaker PA - 02/25/2017 0038 EDT DOS: 02/24/2017 Chief Complaint Patient presents with ??? Threatened Miscarriage 6 weeks , started with brown discharge Tuesday, saw OB said it could be normal spotting. Tonight started with bright red vaginal bleeding. ??? Problem HPI HPI Comments: IAudie, am scribing for Kylah Whitaker PA while he/she is personally performing the service. Audie Aguirre 02/25/2017 0:39 Cristy Luo is a 31 y.o. female with a history of type 2 diabetes mellitus, spontaneous miscarriage, anxiety, and depression presenting with vaginal bleeding and cramping abdominal pain. Patient is 6 weeks and had an US at her OB Tuesday confirming the . Patient reports she was spotting with dark brown blood at the time of the US. She reports the bleeding increased yesterday and she began passing clots this morning. She reports the bleeding became worse this afternoon and she is currently bleeding heavily and passing large clots. She endorses chills, nausea, and vomiting but denies fever, chest pain, shortness of breath, or urinary dysfunction. She reports this is her third but she has had two previous miscarriages. Patient is a current every-day smoker (0.25 ppd) and does not currently drink ETOH. The history is provided by the patient, medical records, the spouse and a relative. Review of Systems Review of Systems Constitutional: Positive for chills. Negative for fever. Respiratory: Negative for shortness of breath. Cardiovascular: Negative for chest pain. Gastrointestinal: Positive for abdominal pain, nausea and vomiting. Genitourinary: Negative for dysuria, frequency and urgency. Skin: Negative for wound. All other systems reviewed and are negative. The patient's past medical, family and social history was reviewed and updated as needed. Allergies Allergen Reactions ??? Citalopram Other (See Comments) suicidal ideation, approx 2012 ??? Advil [Ibuprofen] Hives Vital Signs Temp: 36.2 ??C (97.2 ??F) Temp src: Temporal Pulse: (!) 128 Resp: 20 SpO2: 99 % BP: 129/85 BP Device: BP Machine O2 Device: None (Room air) Physical Exam Constitutional: She is oriented to person, place, and time. She appears well- developed and well-nourished. HENT: Head: Normocephalic and atraumatic. Right Ear: External ear normal. Left Ear: External ear normal. Mouth/Throat: Oropharynx is clear and moist. Eyes: Conjunctivae are normal. Neck: Normal range of motion. Cardiovascular: Normal rate, regular rhythm and normal heart sounds. No murmur heard. Pulmonary/Chest: Effort normal and breath sounds normal. No respiratory distress. She has no wheezes. She has no rales. Abdominal: Soft. She exhibits no distension. There is tenderness ( LLQ, suprapubic, and RLQ). Genitourinary: Genitourinary Comments: Female script supervisor was present Multiple clots in the vaginal vault with a small amount of bleeding Could not visual the os of the cervix Neurological: She is alert and oriented to person, place, and time. Skin: Skin is warm and dry. Psychiatric: She has a normal mood and affect. Nursing note and vitals reviewed. RESULTS EKG orders: None Radiology orders: None ED Lab Results Labs Reviewed HCG FOR - Abnormal Result Value Status HCG 1604 (*) Final HEMAGRAM AND DIFFERENTIAL - Abnormal WBC 18.10 (*) Final MCHC 36.5 (*) Final MPV 9.4 (*) Final ABS Neutrophils 11.22 (*) Final ABS Lymphs 5.25 (*) Final ABS Monocytes 1.09 (*) Final RBC 4.45 Final Hemoglobin 13.9 Final HCT 38.1 Final MCV 86 Final MCH 31.2 Final RDW-CV 11.9 Final RDW-SD 37.2 Final PLT 341 Final Neutrophils 62.0 Final Lymphocytes 29.0 Final Monocytes 6.0 Final Eosinophils 3.0 Final ABS Eosinophils 0.54 Final Type of Diff: Manual Final GLUCOSE, SERUM - Abnormal Glucose, Serum 280 (*) Final ED/URGENT CARE ADD-ON Tests to be added GLUCOSE, SERUM Final Number for problems [id number] (ED) Final Relevant Data Procedures ED COURSE A medical screening exam was performed. Patient is a 31 year old female with a history of type 2 diabetes mellitus, spontaneous miscarriage, anxiety, and depression presenting with vaginal bleeding and cramping abdominal pain for 2 days. Patient reports she saw her OB on Tuesday and had an US confirming the . She reports she hascurrent active and heavy vaginal bleeding with large clots. She reports she has had two previous pregnancies which both resulted in miscarriage. Patient received a Rhogam injection at OB on Tuesday. She reports her blood type is B negative. On exam, patient had LLQ, suprapubic, and RLQ abdominal pain on palpation. Heart had regular rate and rhythm and lungs were clear to auscultation. On vaginal exam, patient had multiple clots in the vaginal vault with a small amount of bleeding. Could not visual the os of the cervix. (00:55) Patient received 325 mg Percocet PO. (01:59) Patient received 2 mg Dilaudid po (02:03) Patient had a pelvis transabdominal and transvaginal ultrasound, significant for no gestational sac identified to indicate viable . Heterogeneous contents without internal vascularity are present within the endometrial canal and cervix. Correlate with beta-hCG levels. Obtained, revi ewed, and interpreted by the radiologist. Please see radiology report for further details. (02:06) Patient had labs that were reviewed independently by myself, significant for WBC of 18.10, H&H stable at 13.9 and 38.1, and HCG of 1604. (02:35) Discussed the patient with UNDERWRITING ANALYST. (03:07) Reevaluation. Patient endorsed continued pain but was comfortable with discharge. (03:18) Patient received 2 mg Dilaudid Po (03:28) Discussed the patient with Dr. Mayer. Prior to discharge usual and customary precautions were reviewed with the patient and/or family including follow-up instructions and reasons to return to the Emergency Department if condition worsens, does not improve as expected, or other new concerns arise. ASSESSMENT AND PLAN Final diagnoses: Vaginal bleeding Miscarriage DISPOSITION: Discharged The patient's pain was managed to an adequate level weighing risk vs. benefit of further medications. Upon departure from the Emergency Department, the patient's pain was 3 on a zero to ten scale. Any further pain treatment will be at the discretion of the provider following up with the patient based on their clinical assessment. Condition at departure from the Emergency Department: Improved PCP: Provider None MDM Number of Diagnoses or Management Options Miscarriage: Vaginal bleeding: Diagnosis management comments: Vaginal bleeding, miscarriage, lower abdominal cramping, gastritis 5 Amount and/or Complexity of Data Reviewed Clinical lab tests: ordered and reviewed Tests in the radiology section of CPT??: ordered and reviewed Review and summarize past medical records: yes Discuss the patient with other providers: yes 02/25/2017 0:38 No flowsheet data found. This documentation is recorded by Audie Aguirre acting as Scribe under the direction and presence of Kylah Whitaker PA. Kylah Whitaker PA: I personally performed the services recorded by the scribe in my presence. I confirm the scribe's documentation has been reviewed by me to accurately and completely record my work, treatment, procedures, and medical decision making. Dr. Sol was available for supervision. documented in this encounter Plan of Treatment Upcoming Encounters Date Type Department Care Team (Late st Contact Info) Description 02/21/2024 9:45 EDT Office Visit [facility] Adult Primary Care - [address] [phone] Carrington Calderon MD [address] [place] [phone] 02/27/2024 8:30 EDT Telemedicine [facility] Sleep Program - [address] [phone] Rn, Sleep 02/29/2024 10:30 EDT Appointment [facility] Radiology Nuclear Medicine and PET - [address] [address] 02/29/2024 14:30 EDT Appointment [facility] Radiology Nuclear Medicine and PET [address] [address] 03/01/2024 8:00 EDT Appointment [facility] Radiology Nuclear Medicine and PET [address] [address] 03/01/2024 9:30 EDT Appointment [facility] Radiology Nuclear Medicine and PET [address] [address] documented as of this encounter Procedures Procedure Name Priority Date/Time Associated Diagnosis Comments ED/URGENT CARE ADD-ON STAT 02/25/2017 2:45 EDT RAD US PELVIS TRANSABDOMINAL AND TRANSVAGINAL STAT 02/25/2017 1:42 EDT COMPLETE BLOOD COUNT AND DIFFERENTIAL STAT 02/25/2017 0:52 EDT QUANT BETA HCG, STAT 02/25/2017 0:52 EDT GLUCOSE, SERUM Routine 02/25/2017 0:52 EDT documented in this encounter Results * ED/URGENT CARE ADD-ON (02/25/2017 2:45 EDT) Tests to be added GLUCOSE, SERUM 02/25/2017 2:40 EDT [facility] Number for problems [id number] (ED) 02/25/2017 2:40 EDT [facility] TOPOGRAPHY UNKNOWN / Unknown 02/25/2017 2:45 EDT 02/25/2017 2:46 EDT Kylah Whitaker PA-C HEMATOLOGY & PF4 ORD ERABLES [facility] [address] [place] [address] * RAD US PELVIS TRANSABDOMINAL AND TRANSVAGINAL (02/25/2017 1:42 EDT) Anatomical Region Laterality Modality Other 02/25/2017 1:42 EDT 02/25/2017 9:29 EDT Narrative 02/25/2017 9:29 EDT RAD US PELVIS TRANSABDOMINAL AND TRANSVAGINAL ??02/25/2017 1:42 AM Clinical History/Comments: vaginal bleeding Comparison: Per patient, ultrasound examination was obtained February 22, 2017 at her coiler's office. This is not available for review. Technique: Grayscale, cinematic, and slightly color Doppler images of the pelvis were obtained using a transabdominal and transvaginal approach. Examination is limited due to patient body habitus and significant shadowing from adjacent bowel gas. MATERNAL STRUCTURES: The ovaries are not identified There is no free fluid in the pelvis. Uterus: The uterus measures 7.8 x 3.6 x 3.9 cm in size and is normal in echotexture. Heterogeneous contents are identified within the endometrial canal extending into the cervix distending the endometrial canal up to 12 mm. The double endometrial stripe at the fundus measures 7.5 mm.. No internal vascularity is identified within these contents. A small nabothian cyst is identified in the cervix posteriorly. Gestational sac: No gestational sac is identified. Yolk sac: No yolk sac is identified. No pole is identified. BIOMETRY: LMP: 12/17/2016 Prior ultrasound dating: Outside ultrasound completed on 02/22/2017, not available for review at the time of this interpretation. Patient states gestational age is 6 weeks. IMPRESSION: No gestational sac identified to indicate viable . Heterogeneous contents without internal vascularity are present within the lower endometrial canal and cervix which may represent clot, decidual reaction or conception products. Correlate with serial beta-hCG levels and if needed repeat ultrasound. The ovaries were not identified. Dr. Severino Cope discussed these findings with KYLAH DAWSON at 02/25/2017 2:03 AM. I have personally reviewed the images and the above interpretation and agree with the findings. Procedure Note Pelon Thayer MD - 02/25/2017 RAD US PELVIS TRANSABDOMINAL AND TRANSVAGINAL 02/25/2017 1:42 AM Clinical History/Comments: vaginal bleeding Comparison: Per patient, ultrasound examination was obtained February 22, 2017 at her coiler's office. This is not available for review. Technique: Grayscale, cinematic, and slightly color Doppler images of the pelvis were obtained using a transabdominal and transvaginal approach. Examination is limited due to patient body habitus and significant shadowing from adjacent bowel gas. MATERNAL STRUCTURES: The ovaries are not identified There is no free fluid in the pelvis. Uterus: The uterus measures 7.8 x 3.6 x 3.9 cm in size and is normal in echotexture. Heterogeneous contents are identified within the endometrial canal extending into the cervix distending the endometrial canal up to 12 mm. The double endometrial stripe at the fundus measures 7.5 mm.. No internal vascularity is identified within these contents. A small nabothian cyst is identified in the cervix posteriorly. Gestational sac: No gestational sac is identified. Yolk sac: No yolk sac is identified. No pole is identified. BIOMETRY: LMP: 12/17/2016 Prior ultrasound dating: Outside ultrasound completed on 02/22/2017, not available for review at the time of this interpretation. Patient states gestational age is 6 weeks. IMPRESSION: No gestational sac identified to indicate viable . Heterogeneous contents without internal vascularity are present within the lower endometrial canal and cervix which may represent clot, decidual reaction or conception products. Correlate with serial beta-hCG levels and if needed repeat ultrasound. The ovaries were not identified. Dr. Severino Coep discussed these findings with KYLAH DAWSON at 02/25/2017 2:03 AM. I have personally reviewed the images and the above interpretation and agree with the findings. Kylah Whitaker PA-C IMG US ORDERABLES * (ABNORMAL) GLUCOSE, SERUM (02/25/2017 0:52 EDT) Glucose, Serum 280(H) 70 - 100 mg/dl 02/25/2017 3:22 EDT [facility] BLOOD SPECIMEN / Unknown 02/25/2017 0:52 EDT 02/25/2017 1:11 EDT Kylah Whitaker PA-C CHEMISTRY & BLOOD GA S ORDERABLES [facility] [address] [place] [address] * (ABNORMAL) HEMAGRAM AND DIFFERENTIAL (02/25/2017 0:52 EDT) WBC 18.10(H) 4.0 - 12.4 K/cmm 02/25/2017 1:16 [facility] RBC 4.45 3.86 - 5.04 M/cmm 02/25/2017 1:16 [facility] Hemoglobin 13.9 11.6 - 15.2 gm/dl 02/25/2017 1:16 [facility] HCT 38.1 34.9 - 44.4 % 02/25/2017 1:16 [facility] MCV 86 81 - 98 fl 02/25/2017 1:16 [facility] MCH 31.2 26.7 - 33.3 pg 02/25/2017 1:16 [facility] MCHC 36.5(H) 32.1 - 35.9 gm/dl 02/25/2017 1:16 [facility] RDW-CV 11.9 <14.7 % 02/25/2017 1:16 [facility] RDW-SD 37.2 <50.4 fl 02/25/2017 1:16 [facility] PLT 341 141 - 377 K/cmm 02/25/2017 1:16 [facility] MPV 9.4(L) 9.5 - 12.7 fl 02/25/2017 1:16 [facility] Neutrophils 62.0 % 02/25/2017 1:38 [facility] Lymphocytes 29.0 % 02/25/2017 1:38 [facility] Monocytes 6.0 % 02/25/2017 1:38 [facility] Eosinophils 3.0 % 02/25/2017 1:38 [facility] ABS Neutrophils 11.22(H) 2.20 - 8.85 K/cmm 02/25/2017 1:38 [facility] ABS Lymphs 5.25(H) 1.09 - 3.30 K/cmm 02/25/2017 1:38 [facility] ABS Monocytes 1.09(H) 0.1 - 0.8 K/cmm 02/25/2017 1:38 EDT [facility] ABS Eosinophils 0.54 0.03 - 0.61 K/cmm 02/25/2017 1:38 EDT [facility] Type of Diff: Manual 02/25/2017 1:38 EDT [facility] Blood specimen (specimen) BLOOD SPECIMEN / Unknown 02/25/2017 0:52 EDT 02/25/2017 1:11 EDT Kylah Whitaker PA-C PACKAGES & DNA PROBE ORDERABLES Performing Organization Address [facility] Co de Phone Number [facility] [address] [place] [address] * (ABNORMAL) HCG FOR (02/25/2017 0:52 EDT) Quant Beta HCG, Preg 1,604(H) <5 mIU/ml 02/25/2017 2:06 EDT [facility] Comment: Reference Range: Negative = <5 Indeterminate = 5-25 recommend repeat in 48 hours. Positive = >25 Blood specimen (specimen) BLOOD SPECIMEN / Unknown 02/25/2017 0:52 EDT 02/25/2017 1:11 EDT Kylah Whitaker PA-C CHEMISTRY & BLOOD GA S ORDERABLES Performing Organization Address [facility] Co de Phone Number [facility] [address] [place] [address] documented in this encounter Visit Diagnoses Diagnosis Vaginal bleeding- Primary Other specified noninflammatory disorder of vagina Miscarriage Unspecified spontaneous without mention of complication documented in this encounter Administered Medications Inactive Administered Medications - up to 3 most recent administrations Medication Order MAR Action Action Date Dose Rate Site HYDROmorphone (DILAUDID) tablet 2 mg 2 mg, oral, NOW X1, 1 dose, On Tue02/25/17 at 0200, STAT Given 02/25/2017 1:59 EDT 2 mg HYDROmorphone (DILAUDID) tablet 2 mg 2 mg, oral, NOW X1, 1 dose, On Tue02/25/17 at 0315, STAT Given 02/25/2017 3:18 EDT 2 mg oxyCODONE-acetaminophen (PERCOCET) 5-325 mg per tablet 1 Tab 1 Tablet, oral, NOW X1, 1 dose, On Tue02/25/17 at 0100, STAT Given 02/25/2017 0:55 EDT 1 Tablet documented in this encounter Historical Medications * This list may reflect changes made after this encounter. Medication Sig Dispensed Refills Start Date End Date VIT 91/IRON/FOLIC/DHA ( + DHA ORAL) Take by mouth. 06/06 metFORMIN (GLUCOPHAGE) 500 mg tablet Take 1,000 mg by mouth daily. 11/26/2019 added in this encounter Active and Recently Administered Medications Times are shown in EDT. Scheduled Medication Order 02/23/2017 02/24/2017 02/25/2017 HYDROmorphone (DILAUDID) tablet 2 mg (COMPLETED) 2 mg, oral, NOW X1, 1 dose, On Tue02/25/17 at 0200, STAT 0159 (Given - Provid er: Fran Diaz RN) HYDROmorphone (DILAUDID) tablet 2 mg (COMPLETED) 2 mg, oral, NOW X1, 1 dose, On Tue02/25/17 at 0315, STAT 0318 (Given - Provid er: Fran Diaz, RN) oxyCODONE-acetaminophen (PERCOCET) 5-325 mg per tablet 1 Tab (COMPLETED) 1 Tablet, oral, NOW X1, 1 dose, On Tue02/25/17 at 0100, STAT 0055 (Given - Provid er: Fran Diaz RN) documented in this encounter Care Teams Record Searcher Relationship Specialty Start Date End Date None, Provider PCP - General 03/08/16 08/21/18 documented as of this encounter
--- OUTSIDE RECORDS SUMMARY | 2023-12-16 00:46 | XMS_ITS | Encounter Summary ---
Author Organization [facility] Address [address] [place] [address] Care Team Providers Care Change Management Specialist Name Role Phone Benita Shafer WEB PRODUCER Primary Care Provider [phone] Encounter Details Date Type Department Care Team (Late st Contact Info) Description 10/24/2018 Phlebotomy Only [facility] - [address] [address] Train Operator, Outpatient Complication of in first trimester (Primary [...] Info) Description 02/21/2024 9:45 EDT Office Visit [facility] Adult Primary Care - [address] [phone] Carrington Calderon MD [address] [facility] Level [address] [place] [address] 02/27/2024 8:30 EDT Telemedicine [facility] Sleep Program - [address] [place] [address] Rn, Sleep 02/29/2024 10:30 EDT Appointment [facility] Radiology Nuclear Medicine and PET - [address] [address] 02/29/2024 14:30 EDT Appointment [facility] Radiology Nuclear Medicine and PET [address] [address] 03/01/2024 8:00 EDT Appointment [facility] Radiology Nuclear Medicine and PET [address] [address] 03/01/2024 9:30 EDT Appointment [facility] Radiology Nuclear Medicine and PET [address] [address] documented as of this encounter Procedures Procedure Name Priority Date/Time Associated Diagnosis Comments QUANT BETA HCG, Routine 10/24/2018 14:42 EDT Complication of in first trimester documented in this encounter Results * (ABNORMAL) QUANT BETA HCG, (10/24/2018 14:42 EDT) Quant Beta HCG, Preg 1,286(H) <5 mIU/ml 10/24/2018 15:[address] [facility] Comment: Reference Range: Negative = <5 Indeterminate = 5-25 recommend repeat in 48 hours. Positive = >25 The results of this assay can be falsely lowered due to the consumption of Biotin. Blood specimen (specimen) BLOOD SPECIMEN / Unknown 10/24/2018 14:42 EDT 10/24/2018 14:54 EDT Ana Coronado MD CHEMISTRY & BLOOD GAS ORDERABLES [facility] [address] [place] [address] documented in this encounter Visit Diagnoses Diagnosis Complication of in first trimester- Primary documented in this encounter Care Teams Change Management Specialist Relationship Specialty Start Date End Date Benita Shafer NP PCP - General 08/22/18 06/17/19 documented as of this encounter
--- OUTSIDE RECORDS SUMMARY | 2023-12-16 00:46 | XMS_ITS | Encounter Summary ---
Author Organization [facility] Address [address] [place] [address] Care Team Providers Care Atomizer Assembler Name Role Phone None, Provider Primary Care Provider Unavailabl e Reason for Visit * Reason Comments Eye Problem woke yesterday am wi th right eye lid swelling, worsening today, now with blurred vision. denies drainage. Encounter Details Date Type Department Care Team (Late st Contact Info) Description 07/28/2016 20:50 EST - 07/28/2016 22:56 EST Emergency [facility] Emergency Department - Main [address] [address] Fran Barbosa MD [address] [place] [address], Level [address] [place] [address] Emergency, MD Ekaterina Corneal abrasion, right, initial encounter (Primary Dx) Discharge Disposition: Home or Self [...] Sign Reading Time Taken Comments Blood Pressure 125/68 07/28/20162052 EST Pulse 110 07/28/20162052 EST Temperature 36.4 ??C (97.5 ??F) 07/28/20162052 EST Respiratory Rate 18 07/28/20162052 EST Oxygen Saturation 100% 07/28/20162052 EST Inhaled Oxygen Concentration - - Weight 108.9 kg (240 lb) 07/28/20162052 EST Height - - Body Mass Index 41.2 03/08/2016 1718 EDT documented in this encounter Discharge Diagnoses Diagnosis S05.01XA Injury of conjunctiva and corneal abrasion without foreign body, right eye, initial encounter-S05.01XA[ICD-10-CM] X58.XXXA Exposure to other specified factors, initial encounter-X58.XXXA[ICD-10-CM] E11.9 Type 2 diabetes mellitus without complications-E11.9[ICD-10-CM] F17.210 Nicotine dependence, cigarettes, uncomplicated-F17.210[ICD-10-CM] 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 Follow up with ophthalmology tomorrow if not improving. Return to the Emergency Department (ED) if your condition worsens, does not improve as expected, orother new concerns arise. Specifically return if you have new or uncontrolled pain, high fever, difficulty breathing, vomiting and unable to keep down fluids or medications, or any other concerns. * Attachments The following attachments cannot be sent through Care Everywhere. * CORNEAL SCRATCHES (POLISH) documented in this encounter Medications at Time of Discharge Medication Sig Dispensed Refills Start Date End Date metFORMIN (GLUCOPHAGE) 500 mg tablet Take 1 Tab by mouth 2 times daily. 180 Tab 3 07/15/2016 12/05/2016 documented as of this encounter Discharge Disposition Disposition Code Departure Means Destination Home or Self Care Walk-out Home documented in this encounter ED Notes * Ann Martínez RN - 07/28/2016 8241 EST Ordered for discharge. Aftercare instructions, follow up, s/s to return and antibiotic ointment usereviewed with pt. Pt stable and ambulatory upon discharge. * Fran Barbosa MD - 07/28/2016 2226 EST DOS: 07/28/2016 Chief Complaint Patient presents with ??? Eye Problem woke yesterday am with right eye lid swelling, worsening today, now with blurred vision. denies drainage. HPI HPI Comments: I, Jackie Oswaldradha, am scribing for Fran Barbosa MD while he is personally performing the service. Jackie Karly 07/28/2016 22:26 Cristy Montelongo is a 31 y.o. female who presents to the ED today with a chief complaint of righteyelid swelling. The patient has past medical history significant for DM. Patient presents to the ED with complaints of worsening right eyelid swelling that started yesterday morning when she woke from sleep. She states that the eye initially slightly swollen and with mildirritation, so she applied a warm compress throughout the day yesterday. Today she woke to increased eyelid swelling and pain that increased throughout the day. She states that while she was at work her vision became blurry and the symptoms were not alleviated with a warm compress. She states that the right side of her eye hurts when she looks to the left. She denies wearing contacts. She states that she does not think that anything has gotten into her eye and it does not feel like she has a for eign body in her eye. Patient denies drainage from the eye. Social history: the patient endorses smoking and alcohol consumption. The history is provided by the patient and medical records. Eye Problem Location: Right eye Severity: Moderate Onset quality: Sudden Timing: Constant Progression: Worsening Chronicity: New Context: not contact lens problem Ineffective treatments: Heat and pressure Associated symptoms: blurred vision and swelling Associated symptoms: no discharge Risk factors: no previous injury to eye Review of Systems Review of Systems Eyes: Positive for blurred vision, pain and visual disturbance. Negative for discharge. All other systems reviewed and are negative. The patient's past medical, family and social history was reviewed and updated as needed. Allergies Allergen Reactions ??? Citalopram Other (See Comments) suicidal ideation, approx 2012 ??? Advil [Ibuprofen] Hives Vital Signs Temp: 36.4 ??C (97.5 ??F) Temp src: Temporal Pulse: (!) 110 Resp: 18 SpO2: 100 % BP: 125/68 BP Device: BP Machine Patient Position: Sitting BP Cuff Location: Right arm O2 Device: None (Room air) Physical Exam Constitutional: She is oriented to person, place, and time. She appears well- developed and well-nourished. No distress. HENT: Head: Normocephalic and atraumatic. Eyes: Conjunctivae are normal. Right eye exhibits no discharge. Left eye exhibits no discharge. Fundoscopic exam: The right eye shows no papilledema. Slit lamp exam: The right eye shows corneal abrasion and fluorescein uptake. The right eye shows no corneal flare, no corneal ulcer, no foreign body, no hyphema and no hypopyon. Neck: Normal range of motion. Pulmonary/Chest: Effort normal. No respiratory distress. Abdominal: She exhibits no distension. Musculoskeletal: Normal range of motion. She exhibits no edema. Neurological: She is alert and oriented to person, place, and time. She exhibits normal muscle tone. Skin: No rash noted. Psychiatric: She has a normal mood and affect. Nursing note and vitals reviewed. RESULTS EKG orders: None Radiology orders: None ED Lab Results Labs Reviewed - No data to display Relevant Data Procedures ED COURSE A medical screening exam was performed. The patient is a 31 y.o. female with a history of diabetes messlitus who presents to the ED with right eyelid swelling and pain with associated blurry vision. Physical exam was significant for right eye corneal abrasion and fluorescence uptake with no corneal flare, no corneal ulcer, no foreign body, no hyphema and no hypopyon. Differential diagnosis includes but is not limited to corneal abrasion and infection. The patient was discharged with instructions to take erythromycin as prescribed, contact opthalmology if not improved tomorrow, and to return with any new or worsening symptoms ASSESSMENT AND PLAN Final diagnoses: Corneal abrasion, right, initial encounter DISPOSITION: Discharged The patient's pain was managed to an adequate level weighing risk vs. benefit of further medications. Upon departure from the Emergency Department, the patient's pain was 2 on a zero to ten scale. Condition at departure from the Emergency Department: Good PCP: Provider None MDM Number of Diagnoses or Management Options Corneal abrasion, right, initial encounter: Diagnosis management comments: 3 Patient Progress Patient progress: improved This documentation is recorded by Jackie Brandt acting as Scribe under the direction and presence of Fran Barbosa MD. Fran Barbosa MD: I personally performed the services recorded by the scribe in my presence. Iconfirm the scribe's documentation has been reviewed by me to accurately and completely record my work, treatment, procedures, and medical decision making. 07/29/2016 22:13 No flowsheet data found. documented in this encounter Plan of Treatment Upcoming Encounters Date Type Department Care Team (Late st Contact Info) Description 02/21/2024 9:45 EDT Office Visit [facility] Adult Primary Care - [address] [id number] Carrington Calderon MD [address] [place] [phone] 02/27/2024 8:30 EDT Telemedicine [facility] Sleep Program - [address] [id number] Rn, Sleep 02/29/2024 10:30 EDT Appointment [facility] Radiology Nuclear Medicine and [facility] - [address] [id number] 02/29/2024 14:30 EDT Appointment [facility] Radiology Nuclear Medicine and [address] [id number] 03/01/2024 8:00 EDT Appointment [facility] Radiology Nuclear Medicine and [address] 7[address]171 03/01/2024 9:30 EDT Appointment [facility] Radiology Nuclear Medicine and [address] [address]851 documented as of this encounter Visit Diagnoses Diagnosis Corneal abrasion, right, initial encounter- Primary documented in this encounter Administered Medications Inactive Administered Medications - up to 3 most recent administrations Medication Order MAR Action Action Date Dose Rate Site erythromycin (ROMYCIN) 5 mg/gram (0.5 %) ophthalmic ointment right eye, NOW X1, 1 dose, On Tue07/28/16 at 2245 Given 07/28/2016 22:55 EST 1 Strip documented in this encounter Active and Recently Administered Medications Times are shown in EST. Scheduled Medication Order 07/26/2016 07/27/2016 07/28/2016 erythromycin (ROMYCIN) 5 mg/gram (0.5 %) ophthalmic ointment (COMPLETED) right eye, NOW X1, 1 dose, On Tue07/28/16 at 2245 2255 (Given - Provid er: Ann Martínez RN) documented in this encounter Care Teams Atomizer Assembler Relationship Specialty Start Date End Date None, Provider PCP - General 03/08/16 08/21/18 documented as of this encounter
--- OUTSIDE RECORDS SUMMARY | 2023-12-16 00:46 | XMS_ITS | Encounter Summary ---
Author Organization [facility] Address [address] [place] [address] Care Team Providers Care Liaison Planner Name Role Phone Benita Shafer GUSTAVO Primary Care Provider [phone] Encounter Details Date Type Department Care Team (Late st Contact Info) Description 10/29/2018 9:12 EDT - 10/29/2018 23:59 EDT Hospital Encounter [facility] [address] [place] [address] Charu Flynn MD 111 [facility], [address] [place] [address] Discharge Disposition: Home or Self Care Social [...] as of this encounter Discharge Diagnoses Diagnosis 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 -O00.80[ICD-10-CM] documented in this encounter Medications at Time [...] or Self Fpc documented in this encounter Plan of Treatment Upcoming Encounters Date Type Department Care Team (Late st Contact Info) Description 02/21/2024 9:45 EDT Office Visit [facility] Adult Primary Care - [address] [address] Carrington Calderon MD 1 [facility] 1 [place] [address] 02/27/2024 8:30 EDT Telemedicine [facility] Sleep Program - [address] [address] Rn, Sleep 02/29/2024 10:30 [facility] - [address] [address] 02/29/2024 14:30 EDT Appointment [facility] Radiology Nuclear Medicine and PET - [address] [address] 03/01/2024 8:00 EDT Appointment [facility] Radiology Nuclear Medicine and PET [address] [address] 03/01/2024 9:30 EDT [facility] Nuclear [place] [address] documented as of this encounter Visit Diagnoses Not on filedocumented in this encounter Care Teams Liaison Planner Relationship Specialty Start Date End Date Benita Shafer NP PCP - General 08/22/18 06/17/19 documented as of this encounter
--- OUTSIDE RECORDS SUMMARY | 2023-12-16 00:46 | XMS_ITS | Encounter Summary ---
Author Organization [facility] Address [address] [place] [address] Care Team Providers Care Linotype Machinist Name Role Phone Benita Shafer GUSTAVO Primary Care Provider [phone] Encounter Details Date Type Department Care Team (Late st Contact Info) Description 10/26/2018 11:36 EDT - 10/26/2018 23:59 EDT Hospital Encounter [facility] [place] [address] [place] [address] Charu Flynn MD 111 [facility], Level 4 [place] [address] Discharge Disposition: Home or Self [...] Code Departure Means Destination Home or Self [facility] documented in this encounter Plan of Treatment Upcoming Encounters Date Type Department Care Team (Late st Contact Info) Description 02/21/2024 9:45 EDT Office Visit [facility] Adult Primary Care - [address] [address] Carrington Calderon MD 1 [facility] 1 [place] [address] 02/27/2024 8:30 EDT Telemedicine [facility] Sleep Program - [address] [address] Rn, Sleep 02/29/2024 10:30 [facility] [address] [address] 02/29/2024 14:30 EDT Appointment [facility] Radiology Nuclear Medicine and PET - [address] [address] 03/01/2024 8:00 EDT Appointment [facility] Emergency Department Radiology Nuclear Medicine and PET [address] [address] 03/01/2024 9:30 EDT [facility]ment [facility] Nuclear Medicine [place] [address] documented as of this encounter Visit Diagnoses Not on filedocumented in this encounter Care Teams Linotype Machinist Relationship Specialty Start Date End Date Benita Shafer NP PCP - General 08/22/18 06/17/19 documented as of this encounter
--- OUTSIDE RECORDS SUMMARY | 2023-12-16 00:46 | XMS_ITS | Encounter Summary ---
Author Organization [facility] Address [address] [place] [address] Care Team Providers Care Hairspring Inspector Name Role Phone Benita Shafer GUSTAVO Primary Care Provider [phone] Encounter Details Date Type Department Care Team (Late st Contact Info) Description 10/26/2018 8:34 EDT - 10/26/2018 11:35 EDT Hospital Encounter [facility] [address] [place] [address] Ana Coronado MD 111 [facility], [address] [place] [address] Discharge Disposition: Auto Discharge Social [...] 9:45 EDT Office Visit [facility] Adult Primary Care - [address] [address] Carrington Calderon MD 1 [facility] 1 [place] [address] 02/27/2024 8:30 EDT Telemedicine [facility] Sleep Program - [address] [address] Rn, Sleep 02/29/2024 10:30 EDT Appointment [facility] Nuclear Medicine and PET - [address] [address] 02/29/2024 14:30 EDT Appointment [facility] Radiology Nuclear Medicine and PET - [address] [address] 03/01/2024 8:00 EDT Appointment [facility] Radiology Nuclear Medicine and PET [address] [address] 03/01/2024 9:30 EDT [facility]ment [facility] Nuclear Medicine [place] [address] documented as of this encounter Visit Diagnoses Not on filedocumented in this encounter Care Teams Hairspring Inspector Relationship Specialty Start Date End Date Benita Shafer NP PCP - General 08/22/18 06/17/19 documented as of this encounter
--- OUTSIDE RECORDS SUMMARY | 2023-12-16 00:46 | XMS_ITS | Encounter Summary ---
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 Type 2 diabetes mellitus without complication, with long-term current use of insulin ([facility]) Abnormal human chorionic gonadotropin (hCG) Charu Flynn MD [address] [facility], [facility] [address] [place] [address] [facility] Ep4 Ob/Mfm [address] [place] [address] Referral ID Status Reason Start Date Expiration Date V isits Requested Visits Authorized [id number] Closed Specialty Services Required 10/26/2018 1 1 Question Answer Reason for Request: Prepregnancy consultation, Type 2 Diabetes, Recurrent loss x6, 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 (Primary Dx); Recurrent loss; Type 2 diabetes mellitus without complication, with long-term current use of insulin ([facility]); Abnormal human chorionic gonadotropin (hCG) Social History Tobacco Use Types Packs/Day Years [...] Sign Reading Time Taken Comments Blood Pressure 106/64 10/26/2018 1352 EDT Pulse - - Temperature - - Respiratory Rate - - Oxygen Saturation - - Inhaled Oxygen Concentration - - Weight 96.1 kg (211 lb 13.8 oz) 10/26/2018 1052 EDT Height 162.6 cm (5' 4) 10/26/2018 1052 EDT Body Mass Index 36.37 10/26/2018 1052 EDT documented in this encounter Progress Notes * Charu Flynn MD, - 10/26/2018 1100 EDT CC; Interstitial , abnormally rising HCG HCGs 10/24/2018: Quant Beta HCG, Preg 1,286 mIU/ml* (Ref range: <5 mIU/ml) 10/26/2018: Quant Beta HCG, Preg 1,531 mIU/ml* (Ref range: <5 mIU/ml) 19% rise over 48 hours Patient presented to clinic after follow-up HCG demonstrated abnormally rising HCG. Previously counseled extensively by Dr. Coronado about course of action given location of . Discussed that rise of only 19% will not result in a viable and would recommend proceeding with treatment now given concern for rupture if continues to grow. Discussed plan for MTX after additional bloodwork. Reviewed side effects and potential complications of MTX, including potential for rupture of interstitium/tube if continues to grow. Reviewed warning symptoms to look out for and to call with concerns about pain, bleeding or other concerning symptoms. Reviewed that if surgery was indicated, depending on location of rupture, may require repair of the uterus versus salpingectomy versus hysterectomy. Stressed the importance of ongoing HCG monitoring to ensure response to MTX and complete resolution. Will repeat HCG on day 4 and 7 and then weekly until <5. Finally, reviewed longer term plans including preconception counseling with MFM regarding diabetes in and [facility] to discuss recurrent loss. Stressed the importance of getting diabetes under optimal control. Pt has a new PCP and is working with her, but feels that she would benefit from a more thorough approach and would like to see endocrinology if possible as her diabetes regimen has been adjusted multiple times without good results. I encouraged her to request a referral to endocrinology from her PCP to get care established. Patient had an opportunity to ask many questions, which I answered to the best of my ability. 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 She will go tothe lab now for kidney/liver function testing and return to clinic for her MTX injection. I have placed referrals for EDIS and MFM and she will see them in the coming months. We discussed the recommendation to avoid another for a few months prior to conception given the potential for MTX to remain in her system for a period of time. We discussed that this will also allow her the opportunity to get her diabetes under better control which can increase her changes for a successful . The patient was agreeable to this discussion, all questions answered. Charu Flynn MD * Michelle Flores RN - 10/26/2018 1100 EDT I. Patient here for injection of methotrexate and rhogam per orders from Dr. Flynn and Dr. Moya/t nonviable, likely interstitial with plateauing HCG levels. Patient Education Topic: Methotrexate - discussed methotrexate protocol per information sheet; provided with education sheet on methotrexate. Provided with information sheet on group session for loss, as well as lab hours and [employer] triage phone number. Method: Handout and Verbal Taught to: Family and Patient Barriers: None Outcomes: verbalized understanding Signature: I was supervised by Dr. Perales who was present and immediately available in the office suite. Michelle Flores RN 10/26/2018 14:37 documented in this encounter Miscellaneous Notes * Addendum Note - Michelle Flores RN - 10/26/2018 1100 EDTAddended by: MICHELLE FLORES on: 10/26/2018 15:08 Modules accepted: Orders documented in this encounter Plan of Treatment Upcoming Encounters Date Type Department Care Team (Late st Contact Info) Description 02/21/2024 9:45 EDT Office Visit [facility] Adult Primary Care - [address] [id number] Carrington Calderon MD [address] [place] [address] [address] [place] [phone] 02/27/2024 8:30 EDT Telemedicine [facility] Sleep Program - [address] [address] Rn, Sleep 02/29/2024 10:30 EDT Appointment [facility] Radiology Nuclear Medicine and PET [address] [address] 02/29/2024 14:30 EDT Appointment [facility] Radiology Nuclear Medicine and PET [address] [address] 03/01/2024 8:00 EDT Appointment [facility] Radiology Nuclear Medicine and PET [address] [address] 03/01/2024 9:30 EDT Appointment [facility] Radiology Nuclear Medicine and PET [address] [address] Scheduled Referrals Name Type Priority Associated Diagnoses Orde r Schedule AMB CONS/FOLLOW UP INFERTILITY Outpatient Referral Routine Recurrent loss Type 2 diabetes mellitus without complication, with long-term current use of insulin ([facility]) Abnormal human chorionic gonadotropin (hCG) 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 Ordered: 10/26/2018 AMB CONS/FOLLOW UP MATERNAL MEDICINE Outpatient Referral Routine 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 Positive = >25 The results of this assay can be falsely lowered due to the consumption of Biotin. Blood specimen (specimen) BLOOD SPECIMEN / Unknown 10/29/2018 9:20 EDT 10/29/2018 9:38 EDT Charu Flynn MD CHEMISTRY & BLOO D GAS ORDERABLES [facility] [address] [place] [address] * COMPLETE BLOOD COUNT (10/26/2018 12:28 EDT) WBC 11.89 4.0 - 12.4 K/cmm 10/26/2018 13:06 [facility] RBC 4.82 3.86 - 5.04 M/cmm 10/26/2018 13:06 [facility] Hemoglobin 15.0 11.6 - 15.2 gm/dl 10/26/2018 13:06 [facility] HCT 42.5 34.9 - 44.4 % 10/26/2018 13:06 [facility] MCV 88 81 - 98 fl 10/26/2018 13:06 [facility] MCH 31.1 26.7 - 33.3 pg 10/26/2018 13:06 [facility] MCHC 35.3 32.1 - 35.9 gm/dl 10/26/2018 13:06 [facility] RDW-CV 11.9 <14.7 % 10/26/2018 13:06 [facility] RDW-SD 38.2 <50.4 fl 10/26/2018 13:06 [facility] PLT 358 141 - 377 K/cmm 10/26/2018 13:06 [facility] MPV 10.0 9.5 - 12.7 fl 10/26/2018 13:06 [facility] Blood specimen (specimen) BLOOD SPECIMEN / Unknown 10/26/2018 12:28 EDT 10/26/2018 12:42 EDT Charu Flynn MD HEMATOLOGY & PF4 ORDERABLES [facility] [address] [place] [address] * (ABNORMAL) AST (10/26/2018 12:28 EDT) AST 14(L) 15 - 46 U/L 10/26/2018 13:09 [facility] Blood specimen (specimen) BLOOD SPECIMEN / Unknown 10/26/2018 12:28 EDT 10/26/2018 12:42 EDT Charu Flynn MD CHEMISTRY & BLOO D GAS ORDERABLES Performing Organization Address City/[facility] Co de Phone Number [facility] [address] [place] [address] * ALT (10/26/2018 12:28 EDT) ALT 22 <53 U/L 10/26/2018 13:09 EDT [facility] Blood specimen (specimen) BLOOD SPECIMEN / Unknown 10/26/2018 12:28 EDT 10/26/2018 12:42 EDT Charu Flynn MD CHEMISTRY & BLOO D GAS ORDERABLES Performing Organization Address [facility] de Phone Number [facility] [address] [place] [address] * (ABNORMAL) CREATININE (10/26/2018 12:28 EDT) Creatinine 0.44(L) 0.52 - 1.04 mg/dl 10/26/2018 13:09 EDT [facility] GFR, Calculated 133 >60 ml/min/1.7 3m2 10/26/2018 13:09 EDT [facility] Comment: eGFR calculated using CKD-EPI equation for non Americans. Multiply eGFR by 1.16 for Americans. Blood specimen (specimen) BLOOD SPECIMEN / Unknown 10/26/2018 12:28 EDT 10/26/2018 12:42 EDT Charu Flynn MD CHEMISTRY & BLOO D GAS ORDERABLES Performing Organization Address City/[facility] Co de Phone Number [facility] [address] [place] [address] * BUN (10/26/2018 12:28 EDT) BUN 11 10 - 26 mg/dl 10/26/2018 13:09 EDT [facility] Blood specimen (specimen) BLOOD SPECIMEN / Unknown 10/26/2018 12:28 EDT 10/26/2018 12:42 EDT Charu Flynn MD CHEMISTRY & BLOO D GAS ORDERABLES [facility] [address] [place] [address] documented in this encounter Visit Diagnoses Diagnosis 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 2.08 m2), intramuscular, NOW X1, 1 dose, On Renee 10/26/18 at 1115, Routine Given 10/26/2018 14:19 EDT 104 mg Left Gluteus Medius/Ventrogluteal Additional Administered Medications Medication Order MAR Action Action Date Dose Rate Site Rho(D) Immune Globulin IM Intramuscular Given 10/26/2018 14:02 EDT 300 mcg Left De ltoid documented in this encounter Care Teams Visitor Use Assistant Relationship Specialty Start Date End Date Benita Shafer NP PCP - General 08/22/18 06/17/19 documented as of this encounter
--- OUTSIDE RECORDS SUMMARY | 2023-12-16 00:47 | XMS_ITS | Encounter Summary ---
Author Organization [facility] Address [address] [place] [address] Care Team Providers Care Administrative Technician Name Role Phone Unavailable Primary Care Provider Unavailabl e Encounter Details Date Type Department Care Team (Late st Contact Info) Description 06/22/2006 Before PRISM Converted Visit (Maple) [facility] - Maple conversion [address] [place] [address] Broderick Ross MD Social History Tobacco Use Types Packs/Day Years Used Date Smoking Tobacco: Never Assessed Sex and Gender Information Value Date Recorded Sex Assigned at Not on file Gender Identity Female 06/18/2019 8:54 EST Sexual Orientation Not on file documented as of this encounter Progress Notes * Broderick Ross MD - 06/10/2009 0357 EST OF PLASTIC RECONSTRUCTIVE SURGERY PROGRESS/FOLLOWUP NOTE - 06/22/2006 PROBLEM: Bilateral breast enlargement, grade 3 breast ptosis, neck/back/shoulder pain. PROVIDER REQUESTING CONSULTATION: JUNE Plata/Fermin Lovett MD HISTORY: [facility], ???to see about a breast reduction.?? The patients history is such that she indicated that, ???currently I am a 36 G (bra size) and I have a hard time breathing at night since I cancontrol where they are (i.e., breasts). They keep me from breathing well because of the pressure. I have been big ever since I was in seventh grade when I was a DDD. I kind of have a hunch back around my neck because it is just so heavy and they pull on myback and shoulders. [facility] I saw her initially because I had a couple little lumps. They found that the lumps werenanything to worry about and she suggested that Isee you. I saw her for the breast lumps because I have a high family history of breast cancer. The other thing about my breast size is that buying bras is really expensive when you get to the size I need.?? The patient denies any history of nipple discharge, she has had no breast surgery, she doeshave breast pain. She describes this as, ???it goes from under my arms to right around the nipples.?? The patient has not been . The patients family history is such that she indicated that, ???a few of the members of my family (i.e., female) have big breasts, but not necessarily all the women.?? The patientfamily history is extensive in regards to breast cancer. The patients Health History Form was filled out and is noted on the chart. The patient has no knowndrug allergies, she has no chronic medical conditions, she has had surgery on her, tailbone?? (most likely pilonidal cyst), and she takes no medications. The patient has no history of any mental illness issues, she has not had any blood transfusions, she has not been , she does not smoke, a nd she has no history of any bleeding problems. An introductory letter regarding the patient, from Bethanie Hernandez, was reviewed and placed on the chart.In summary, she has had a maternal grandmother with breast cancer, two maternal aunts with breast cancer in their 50and two maternal cousins with breast cancer. An ultrasound was done by Bethanienigel Hernandez, which was found to be normal. Bethanie Hernandez, in her note, indicated that, ???it is noted she (i.e., the patient) is unable to lye flat on her back for the clinical breast exam as her breasts interfere withher normal breathing pattern. 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 For hobbies, she enjoys walking, singing, and working with children. Sheindicated that her breasts impair her ability to do lifting and thus she has to avoid activities and hobbies which require this. EXAMINATION: On physical examination, the patient was a healthy appearing 21-year-old female who was pleasant, cooperative, and in no acute distress. Her height was 5 feet 4 inches and her weight [id number]. On examination of the patients anterior chest, she had relatively symmetrical breasts which were very large. Sternal to nipple distance was 36.5 cm. There were no signs of any inflammatory disease processes of the breast nor any evidence of skin retraction. The nipples were everted. There were no signs of any intertrigo. To palpation, the patientbreasts were soft and there were no dominant massesnor tenderness. The patient had no supraclavicular/infraclavicular/axillary adenopathy to palpation. Were the patient to have a bilateral reduction mammoplasty, I would estimate that approximately 800-1000 grams of tissue would be removed from each side, although I could not guarantee this. MEDICAL DECISION MAKING: By clinical history and physical examination, the patient, in my opinion, would be a candidate for bilateral reduction mammoplasties. I told the patient that in my hands, given the patientoverall body size and breast size that I would do a nipple grafting technique. I told t he patient that if a nipple grafting technique were done, she would lose the ability to breast feed, have no nipple erectility, and have no erogenous stimulation of the nipple areolar complex with contact. She indicated that she understood and could accept this. In addition, the patient is obese and I recommended that she try tolose weight before she had a breast reduction. She indicated that sheunderstood this and would try to do so. discussed the basic elements of a bilateral reduction mammoplasty with the patient and she was given an ASPRS booklet. The patient is awareof the location of the scars from the bilateral breast reduction as a result of this discussion. I told the patient that the procedure was done as a [id number] admission with general anesthesia and that the hospitalization would be a minimum one night following the procedure. I then discussed the immediate and long-term follow-up with the patient and told her that the immediate postoperative follow- up was approximately 4-6 weeks or longer if there wereany complications, including, but not limited to, infection, postoperative bleeding, hypertrophic or keloid scar formation, permanent pain in the area of the operative dissection sites, possible wound separation, possible loss of skin of the breasts and/or nipple-areolar complex, possible loss of sensibility in the nipple (which would mean that the patient could not nurse and there would be no erogenous stimulation with contact), and residual asymmetry of the breasts, all of which could necessitate further surgery. I told the patient that I could not guarantee the bra cup size following reduction, but did feel that there was a reasonable expectation that she would have a significant elevation of the nipple areolar complexes as well as a reduction in the volume of her breasts. I told the pa tient that she would probably not see the final size and shape of her breasts for at least 6-12 months following the procedure since there would be scar maturation and some stretching of the skin thereafter. The patient indicated that she understood and appreciated the above discussion. She asked that I submit her case to her insurance carrier for prior approval. I told her that I would do so. PLAN: 1. MARCELO Casillas, took photographs of the patients anterior chest. 2. The patients case will be submitted to her insurance carrier and, should she receive approval, she will not only be scheduled for surgery but a preoperative consultation as well. 3. She will call the office prior to that time if she has any problems or questions. Signed by Broderick Ross MD 06/28/2006 08:28 Kristina Joy MD Broderick Ross MD - Erich Ross MD A - [facility] Job ID: [id number] Document ID: [id number] cc: JUNE Plata MD documented in this encounter Plan of Treatment Upcoming Encounters Date Type Department Care Team (Late st Contact Info) Description 02/21/2024 9:45 EDT Office Visit [facility] Adult Primary Care - [address] [address] Carrington Calderon MD [address] [address] 02/27/2024 8:30 EDT Telemedicine [facility] Sleep Program - [address] [address] Rn, Sleep 02/29/2024 10:30 EDT [facility] Radiology Nuclear Medicine and PET - [address] [id number] 02/29/2024 14:30 EDT Appointment [facility] Radiology Nuclear Medicine and PET - [address] [id number] 03/01/2024 8:00 EDT Appointment [facility] Radiology Nuclear Medicine and PET - [address] [phone] 03/01/2024 9:30 EDT Appointment [facility] Radiology Nuclear Medicine and PET - [address] [id number] documented as of this encounter Visit Diagnoses Not on filedocumented in this encounter
--- OUTSIDE RECORDS SUMMARY | 2023-12-16 00:47 | XMS_ITS | Encounter Summary ---
Author Organization [facility] Address [address] [place] [address] Care Team Providers Care Circuit Design Engineer Name Role Phone None, Provider Primary Care Provider Unavailabl e Encounter Details Date Type Department Care Team (Late st Contact Info) Description 08/01/2015 10:45 EST - 08/01/2015 10:46 EST Hospital Encounter [address] [address] Kamini Vega MD 111 [facility] [address] [place] [phone] Discharge Disposition: Home or Self Care Social History Tobacco Use Types Packs/Day Years Used Date Smoking Tobacco: Every Day Cigarettes Alcohol Use Standard Drinks/Week Comments No 0 (1 standard drink = 0.6 oz pur e alcohol) very rare Sex and Gender Information Value Date Recorded Sex Assigned at Not on file Gender Identity Female 06/18/2019 8:54 EST Sexual Orientation Not on file documented as of this encounter Discharge Diagnoses Diagnosis N91.5 Oligomenorrhea, unspecified-N91.5[ICD-10-CM] documented in this encounter Medications at Time of Discharge Medication Sig Dispensed Refills Start Date End Date glimepiride (AMARYL) 2 mg tablet Take 1 Tab by mouth every morning. 30 Tab 12 05/12/2010 07/15/2016 documented as of this encounter Discharge Disposition Disposition Code Departure Means Destination Home or Self Care documented in this encounter Plan of Treatment Upcoming Encounters Date Type Department Care Team (Late st Contact Info) Description 02/21/2024 9:45 EDT Office Visit [facility] Adult Primary Care - [address] [address] Carrington Calderon MD [address] [phone] 02/27/2024 8:30 EDT Telemedicine [facility] Sleep Program - [address] [address] Rn, Sleep 02/29/2024 10:30 [facility] [address] [phone] 02/29/2024 14:30 EDT Appointment [facility] Radiology Nuclear Medicine and PET [address] [phone] 03/01/2024 8:00 EDT Appointment [facility] Radiology Nuclear Medicine and PET [address] [phone] 03/01/2024 9:30 EDT Appointment [facility] Radiology Nuclear Medicine and PET [address] [phone] documented as of this encounter Visit Diagnoses Not on filedocumented in this encounter Care Teams Circuit Design Engineer Relationship Specialty Start Date End Date None, Provider PCP - General 01/01/15 08/27/15 documented as of this encounter
--- OUTSIDE RECORDS SUMMARY | 2023-12-16 00:47 | XMS_ITS | Encounter Summary ---
Author Organization [facility] Address [address] [place] [address] Care Team Providers Care Credit Control Administrator Name Role Phone None, Provider Primary Care Provider Unavailabl e Encounter Details Date Type Department Care Team (Latest Contact Info) Description 02/11/2015 13:08 EDT - 02/11/2015 13:09 EDT Hospital Encounter [facility] - [address] [address] Alaina Miranda, [address] [phone] Sunday Miranda MD [address] [phone] Discharge Disposition: Home or Self Care Social History Tobacco Use Types Packs/Day Years Used Date Smoking Tobacco: Never Alcohol Use Standard Drinks/Week Comments No 0 (1 standard drink = 0.6 oz pur e alcohol) very rare Sex and Gender Information Value Date Recorded Sex Assigned at Not on file Gender Identity Female 06/18/2019 8:54 EST Sexual Orientation Not on file documented as of this encounter Discharge Diagnoses Diagnosis 634.90 SPON ABORT [id number][ICD-9-CM] documented in this encounter Medications at Time [...] Visit [facility] Adult Primary Care - [address] [address] Carrington Calderon MD 1 [facility] 1 [place] [phone] 02/27/2024 8:30 EDT Telemedicine [facility] Sleep Program - [address] [phone] Rn, Sleep 02/29/2024 10:30 EDT Appointment [facility] Radiology Nuclear Medicine and PET [address] [phone] 02/29/2024 14:30 EDT Appointment [facility] Radiology Nuclear Medicine and PET [address] [phone] 03/01/2024 8:00 EDT Appointment [facility] Radiology Nuclear Medicine and PET [address] [phone] 03/01/2024 9:30 EDT Appointment [facility] Radiology Nuclear Medicine and PET [address] [phone] documented as of this encounter Visit Diagnoses Not on filedocumented in this encounter Care Teams Credit Control Administrator Relationship Specialty Start Date End Date None, Provider PCP - General 01/01/15 08/27/15 documented as of this encounter
--- OUTSIDE RECORDS SUMMARY | 2023-12-16 00:47 | XMS_ITS | Encounter Summary ---
Author Organization [facility] Address [address] [place] [address] Care Team Providers Care Justice [employer] Name Role Phone None, Provider Primary Care Provider Unavailabl e Encounter Details Date Type Department Care Team (Late st Contact Info) Description 08/01/2015 Results Only [facility] [phone] Kamini Vega MD [address] [place] [phone] Social History Tobacco Use Types Packs/Day Years [...] [facility] [address] [phone] Carrington Calderon MD [address] [place] [phone] 02/27/2024 8:30 EDT Telemedicine [facility] Sleep Program - [address] [phone] Rn, Sleep 02/29/2024 10:30 EDT Appointment [facility] Radiology Nuclear Medicine and PET [address] [phone] 02/29/2024 14:30 EDT Appointment [facility] Radiology Nuclear Medicine and PET [address] [address] 03/01/2024 8:00 EDT Appointment [facility] Radiology Nuclear Medicine and [address] [address] 03/01/2024 9:30 EDT Appointment [facility] Radiology Nuclear Medicine and [address] [address] documented as of this encounter Procedures Procedure Name Priority Date/Time Associated Diagnosis Comments PROGESTERONE Routine 08/01/2015 9:38 EST documented in this encounter Results * PROGESTERONE (08/01/2015 9:38 EST) Progesterone 9.7 ng/ml 08/01/2015 19:37 EST [facility] Comment: NON- FEMALES: follicular phase: ??<0.2-1.4 ng/mL luteal phase: 3.3-25.6 ng/ml postmenopausal: ??<0.2-0.7 ng/mL FEMALES: first trimester: 11.2-90.0 ng/ml second trimester: 25.6-89.4 ng/ml third trimester: 48.4-422.5 ng/ml ECTOPIC PREGNANCIES: consult pathologist BLOOD SPECIMEN / Unknown 08/01/2015 9:38 EST 08/01/2015 17:36 EST Kamini Vega MD CHEMISTRY & BLOOD GA S ORDERABLES [facility] [address] [place] [address] documented in this encounter Visit Diagnoses Not on filedocumented in this encounter Care Teams Justice [employer] Relationship Specialty Start Date End Date None, Provider PCP - General 01/01/15 08/27/15 documented as of this encounter
--- OUTSIDE RECORDS SUMMARY | 2023-12-16 00:47 | XMS_ITS | Encounter Summary ---
Author Organization [facility] Address [address] [place] [address] Care Team Providers Care Measurement Department Chief Clerk Name Role Phone Unavailable Primary Care Provider Unavailabl e Encounter Details Date Type Department Care Team (Latest Contact Info) Description 08/23/2007 10:09 EDT - 08/23/2007 11:59 EDT Hospital Encounter [facility] - [address] [phone] Emergency, MD Ekaterina Discharge Disposition: Home or Self Care Social [...] Office Visit [facility] Adult Primary Care - [address] [phone] Carrington Calderon MD [address] [phone] 02/27/2024 8:30 EDT Telemedicine [facility] - [address] [phone] Rn, Sleep 02/29/2024 10:[address] [facility] Radiology Nuclear Medicine and PET - [address] [address] 02/29/2024 14:[address] [facility] Radiology Nuclear Medicine and [address] [address] 03/01/2024 8:[address] [facility] Radiology Nuclear Medicine and PET [address] [address] 03/01/2024 9:[address] [facility] Radiology Nuclear Medicine and PET [address] [address] documented as of this encounter Procedures Procedure Name Priority Date/Time Associated Diagnosis Comments MR BRAIN AND C-SPINE WO CONTRAST 08/23/2007 18:32 EDT HOLD BLUE TOP Routine 08/23/2007 14:50 EDT COMPLETE BLOOD COUNT AND DIFFERENTIAL Routine 08/23/2007 14:50 EDT BUN Routine 08/23/2007 14:50 EDT PHOSPHORUS Routine 08/23/2007 14:50 EDT MAGNESIUM Routine 08/23/2007 14:50 EDT GLUCOSE, SERUM Routine 08/23/2007 14:50 EDT FOLATE Routine 08/23/2007 14:50 EDT CREATININE Routine 08/23/2007 14:50 EDT CK Routine 08/23/2007 14:50 EDT CALCIUM Routine 08/23/2007 14:50 EDT ELECTROLYTES Routine 08/23/2007 14:50 EDT documented in this encounter Results * MR BRAIN AND C-SPINE WO CONTRAST (08/23/2007 18:32 EDT) Anatomical Region Laterality Modality Other 08/23/2007 18:3 2 EDT Narrative 11/17/2008 13:26 EDT pt presents with neck pain radiating to upper extremities r/o cranial/cervical abnormalities Brain MR without contrast and cervical spine MR without contrast Clinical indication: Neck pain radiating to upper extremities and also sensory deficits. Cervical spine MR technique: Sagittal T1, sagittal T2, transaxial T2 and bilateral sagittal T2 oblique imaging is obtained. There are no prior studies. Findings: Examination of the cervical spine demonstrates unremarkable alignment. There is no significant foraminal narrowing on the bilateral oblique sagittal images. Spinal cord is unremarkable with respect to size, position and signal intensity. No disc herniation or foraminal stenosis is identified. Impression: Unremarkable cervical spine MR. Brain MR technique: Sagittal T1, axial T1, T2, FLAIR, gradient-echo, diffusion-weighted imaging of the brain is obtained. No contrast was given, and there are no prior studies. Findings: No parenchymal mass or extra-axial fluid collection is seen. No midline shift or focal mass effect is present. There is mucosal thickening in the ethmoid air cells bilaterally and left maxillary antrum with a fluid level on the left and a minor degree of mucosal thickening within the left frontal sinus. In general, frontal sinuses are hypoplastic in this patient, a normal developmental variant. There is one nonspecific focus of hyperintense signal in the left parietal subcortical white matter, a nonspecific finding. On the diffusion-weighted image, no acute infarct is seen. On the gradient-echo sequence, no significant susceptibility effects are present. Impression: 1. No MR evidence of demyelinating disease or intracranial mass lesion or acute infarct. 2. Acute on chronic left maxillary sinusitis and chronic ethmoid, left more than right, and left frontal sinus inflammatory disease. Procedure Note Zak Marsh MD - 11/17/2008 pt presents with neck pain radiating to upper extremities r/o cranial/cervical abnormalities Brain MR without contrast and cervical spine MR without contrast Clinical indication: Neck pain radiating to upper extremities and also sensory deficits. Cervical spine MR technique: Sagittal T1, sagittal T2, transaxial T2 and bilateral sagittal T2 oblique imaging is obtained. There are no prior studies. Findings: Examination of the cervical spine demonstrates unremarkable alignment. There is no significant foraminal narrowing on the bilateral oblique sagittal images. Spinal cord is unremarkable with respect to size, position and signal intensity. No disc herniation or foraminal stenosis is identified. Impression: Unremarkable cervical spine MR. Brain MR technique: Sagittal T1, axial T1, T2, FLAIR, gradient-echo, diffusion-weighted imaging of the brain is obtained. No contrast was given, and there are no prior studies. Findings: No parenchymal mass or extra-axial fluid collection is seen. No midline shift or focal mass effect is present. There is mucosal thickening in the ethmoid air cells bilaterally and left maxillary antrum with a fluid level on the left and a minor degree of mucosal thickening within the left frontal sinus. In general, frontal sinuses are hypoplastic in this patient, a normal developmental variant. There is one nonspecific focus of hyperintense signal in the left parietal subcortical white matter, a nonspecific finding. On the diffusion-weighted image, no acute infarct is seen. On the gradient-echo sequence, no significant susceptibility effects are present. Impression: 1. No MR evidence of demyelinating disease or intracranial mass lesion or acute infarct. 2. Acute on chronic left maxillary sinusitis and chronic ethmoid, left more than right, and left frontal sinus inflammatory disease. Subharadha Aguilar MD [facility] MRI ORDERABLES * (ABNORMAL) GLUCOSE, SERUM (08/23/2007 14:50 EDT) Glucose, Serum 124(H) 70 - 100 mg/dl [facility] 08/23/2007 14:5 0 EDT 08/23/2007 15:01 EDT Default Emergency CHEMISTRY & BLOOD G ORDERABLES Performing Organization Address [facility] Co de Phone Number [facility] [address] [place] [address] * PHOSPHORUS (08/23/2007 14:50 EDT) Phosphorus 3.1 2.5 - 4.5 mg/dl [facility] 08/23/2007 14:5 0 EDT 08/23/2007 15:01 EDT Default Emergency CHEMISTRY & BLOOD G ORDERABLES Performing Organization Address City/[facility] de Phone Number [facility] [address] [place] [address] * MAGNESIUM (08/23/2007 14:50 EDT) Magnesium 1.9 1.7 - 2.8 mg/dl [facility] 08/23/2007 14:5 0 EDT 08/23/2007 15:01 EDT Default Emergency MD CHEMISTRY & BLOOD G ORDERABLES Performing Organization Address [facility] de Phone Number [facility] [address] [place] [address] * ELECTROLYTES (08/23/2007 14:50 EDT) Pathologist [facility] Sodium 142 136 - 145 mEq/L [facility] Potassium 4.2 3.5 - 5.0 mEq/L [facility] Chloride 105 96 - 110 mEq/L [facility] CO2 25 24 - 32 mEq/L [facility] 08/23/2007 14:5 0 EDT 08/23/2007 15:01 EDT Default Emergency MD CHEMISTRY & BLOOD G ORDERABLES Performing Organization Address [facility] de Phone Number [facility] [address] [place] [address] * HOLD BLUE TOP (08/23/2007 14:50 EDT) Hold Blue Top Sample for coagulation will be discarded after 4 hours [facility] 08/23/2007 14:5 0 EDT 08/23/2007 15:01 EDT Default Emergency MD LAB INFO SERVICE AN D SUPPORT & PHONE RESULT Performing Organization Address [facility] de Phone Number [facility] [address] [place] [address] * FOLATE (08/23/2007 14:50 EDT) Folate >24.0 ng/mL [facility] Comment: Deficient: ??Less than 3.4 ng/mL Indeterminate: ??3.4-5.4 ng/mL Normal: ??Greater than 5.4 ng/mL 08/23/2007 14:5 0 EDT 08/23/2007 15:01 EDT Default Emergency MD CHEMISTRY & BLOOD G ORDERABLES Performing Organization Address [facility] de Phone Number [facility] [address] [place] [address] * (ABNORMAL) CREATININE (08/23/2007 14:50 EDT) Creatinine 0.66(L) 0.7 - 1.5 mg/dl [facility] GFR, Calculated >60 ml/min/1.7 3m2 [facility] 08/23/2007 14:5 0 EDT 08/23/2007 15:01 EDT Default Emergency MD CHEMISTRY & BLOOD G ORDERABLES Performing Organization Address [facility] Phone Number [facility] [address] [place] [address] * CK (08/23/2007 14:50 EDT) CK 68 30 - 135 U/L [facility] 08/23/2007 14:5 0 EDT 08/23/2007 15:01 EDT Default Emergency MD CHEMISTRY & BLOOD G ORDERABLES Performing Organization Address [facility] Phone Number [facility] [address] [place] [address] * (ABNORMAL) HEMAGRAM AND DIFFERENTIAL (08/23/2007 14:50 EDT) WBC 11.97 4.0 - 12.4 K/cmm [facility] RBC 4.54 3.86 - 5.04 M/cmm [facility] Hemoglobin 13.4 11.6 - 15.2 gm/dl [facility] HCT 38.9 34.9 - 44.4 % [facility] MCV 86 81 - 98 fl [facility] MCH 29.6 26.7 - 33.3 pg [facility] MCHC 34.6 32.1 - 35.9 gm/dl [facility] PLT 416(H) 141 - 320 K/cmm [facility] RDW-CV 13.0 11.7 - 14.6 % [facility] % Neutrophils 72.6 45.5 - 79.7 % [facility] % Lymphocytes 21.2 15.0 - 46.8 % [facility] % Monocytes 4.9 1.8 - 12.0 % [facility] % Eosinophils 1.0 0.6 - 6.9 % [facility] % Basophils 0.3 0.2 - 1.4 % [facility] ABS Neutrophils 8.69 2.20 - 8.85 K/cmm [facility] ABS Lymphs 2.53 1.09 - 3.30 K/cmm [facility] ABS Monocytes 0.59 0.1 - 0.8 K/cmm [facility] ABS Eosinophils 0.12 0.03 - 0.61 K/cmm [facility] ABS Basophils 0.04 0.01 - 0.11 K/cmm [facility] Type of Diff: Automated [facility] 08/23/2007 14:5 0 EDT 08/23/2007 15:01 EDT Default Emergency MD PACKAGES & DNA PROB E ORDERABLES Performing Organization Address City/[facility] Co de Phone Number [facility] [address] [place] [address] * CALCIUM (08/23/2007 14:50 EDT) Calcium 10.0 8.5 - 10.5 mg/dl [facility] Calculated Calcium 10.0 8.5 - 10.5 mg/dl [facility] 08/23/2007 14:5 0 EDT 08/23/2007 15:01 EDT Default Emergency CHEMISTRY & BLOOD G ORDERABLES Performing Organization Address City/[facility] Co de Phone Number [facility] [address] [place] [address] * BUN (08/23/2007 14:50 EDT) BUN 12 10 - 26 mg/dl [facility] 08/23/2007 14:5 0 EDT 08/23/2007 15:01 EDT Default Emergency MD CHEMISTRY & BLOOD G ORDERABLES [facility] [address] [place] [address] documented in this encounter Visit Diagnoses Not on filedocumented in this encounter
--- OUTSIDE RECORDS SUMMARY | 2023-12-16 00:47 | XMS_ITS | Encounter Summary ---
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 Name Role Phone None, Provider Primary Care Provider Unavailabl e Reason for Visit * Reason Comments Cough Encounter Details Date Type Department Care Team (Latest Contact Info) Description 03/08/2016 14:28 EDT - 03/08/2016 16:55 EDT Hospital Encounter [facility] - [address] [address] Scar Marquez MD [address] [place] [phone] Unknown, ProviderMD Leukocytosis, unspecified type (Primary Dx); Sore throat; Cough; Tachycardia Discharge Disposition: Home or Self Care Social [...] Sign Reading Time Taken Comments Blood Pressure 92/50 03/08/2016 1626 EDT Pulse 126 03/08/2016 1626 EDT Temperature 37.8 ??C (100.1 ??F) 03/08/2016 1626 EDT Respiratory Rate 26 03/08/2016 1626 EDT Oxygen Saturation 96% 03/08/2016 1626 EDT Inhaled Oxygen Concentration - - Weight - - Height - - Body Mass Index - - documented in this encounter Discharge Diagnoses Diagnosis N30.01 Acute cystitis with hematuria-N30.01[ICD-10-CM] documented in this encounter Medications at Time of Discharge Medication Sig Dispensed Refills Start Date End Date glimepiride (AMARYL) 2 mg tablet Take 1 Tab by mouth every morning. 30 Tab 12 05/12/2010 07/15/2016 documented as of this encounter Discharge Disposition Disposition Code Departure Means Destination Home or Self Care documented in this encounter ED Notes * Naomi Ferrer RN - 03/08/2016 1654 EDT Report given to [facility] patient transported to [facility] ED for further evaluation IV infusing. * Olive Tristan MA - 03/08/2016 1616 EDT 12 Lead EKG Performed by Olive Tristan MA and shown to Scar Marquez MD. * Nicole Castellanos LPN - 03/08/2016 1530 EDT Blood drawn via butterfluper protocol,sst,lav,blue tube(s) sent to lab per order. * Scar Marquez MD - 03/08/2016 1454 EDT DOS: 03/08/2016 Chief Complaint Patient presents with ??? Cough The patient is a 30 y.o. female who presents today with Cough HPI Comments: Cristy presents today for concern of sore throat that initially started three daysago. She then developed some sinus symptoms and soreness in the throat as well as the upper chest. She notes that she has have been some trouble catching her breath. She has frequent coughing that makes it difficult to take a deep breath. She has had cough productive of yellow greenish mucus yesterday and also noticed some blood-tinged sputum today. She has also felt fatigued. She has some low back discomfort. She has also felt chills and sweats. He has not been eating as much. She denies any chronic lung problems. She has not had asthma in the past. She denies history of blood clots in the legs or lungs. She has used [id number]-[id number] Robitussin and Tylenol with little improvement. She notes that there are aunts, uncles as well as grandparents with history of blood clots. She currently has no insurance. She had been on insulin as well as glimepiride for diabetes. She stopped these in September of this year due to loss of insurance. She had been started in July on those medications. There were continued from her . She is currently on her period, so she thinks she is having some abdominal cramping from this. She denies any recent immobilization. She did take a plane ride to [place] in January of this year. She has no specific sick contacts. She denies IV drug use. Occasionally smokes marijuana for anxiety. The history is provided by the patient. Cough Cough characteristics: Productive Sputum characteristics: A littel bit of blood today. Yelloe phlegm yesterday. Chronicity: New Smoker: yes (Currently 1/2 ppd) Context: upper respiratory infection Context: not sick contacts Associated symptoms: chest pain (upper chest), chills, diaphoresis, fever (subjective), headaches, shortness of breath (trouble takign a deep breath), sore throat and wheezing (at times) Associated symptoms: no ear pain and no rash Review of Systems Constitutional: Positive for chills, diaphoresis, fatigue and fever (subjective). HENT: Positive for congestion and sore throat. Negative for ear pain. Respiratory: Positive for cough, chest tightness, shortness of breath (trouble takign a deep breath) and wheezing (at times). Cardiovascular: Positive for chest pain (upper chest). Gastrointestinal: Negative for nausea and vomiting. Abdominal cramping Genitourinary: Negative for dysuria. Musculoskeletal: Positive for back pain (aching). Skin: Negative for rash. Neurological: Positive for headaches. Hematological: Denies history of blood clots Psychiatric/Behavioral: Denies drug use other than marujuana No current facility-administered medications for this encounter. Current Outpatient Prescriptions Medication Sig Dispense Refill ??? glimepiride (AMARYL) 2 mg tablet Take 1 Tab by mouth every morning. 30 Tab 12 ??? insulin glargine (LANTUS SOLOSTAR) 100 unit/mL (3 mL) injection pen Inject into the skin at bedtime. Allergies Allergen Reactions ??? Citalopram Other (See Comments) suicidal ideation, approx 2012 ??? Advil [Ibuprofen] Hives Patient Active Problem List Diagnosis Date Noted ??? Chronic left ear pain 09/04/2015 ??? Spontaneous miscarriage 09/04/201502/18, 08/19. [facility] ??? Family history of rheumatoid arthritis 09/04/2015 Mother, pt with chronic back pain. Told arthritis in spine in teen yrs. ??? Type 2 diabetes mellitus 09/03/2015 Dx approx age 25. Controlled with lifestyle behaviors, wt loss. Had taken lantus in past 80u, Followed by endocrine in [facility]. Stopped few yrs ago until this past month. ??? Anxiety and depression 05/12/2010 Onset teen yrs. Treated with citalopram in approx 2012 - had SI, treated at [facility]. Marijuana prn to help with stress/anxiety sx. ??? Obesity ICD10 Update Auto Replacement ??? Migraine with aura and without status migrainosus, not intractable Dx approx age 15. Average 2/ month. Chronic left ear ?trigger. Migraine with aura - pt experiences shooting stars mins before onset of leon every time. Past Medical History Diagnosis Date ??? Depression ??? Diabetes ??? Diabetes mellitus ??? Migraine, unspecified, without mention of intractable migraine without mention of status migrainosus ??? Obesity, unspecified ??? Rh negative state in antepartum period Social History Substance Use Topics ??? Smoking status: Current Every Day Smoker Packs/day: 0.50 Types: Cigarettes ??? Smokeless tobacco: Never Used ??? Alcohol use No Comment: very rare Family History Problem Relation Age of Onset ??? Diabetes Mother ??? Diabetes Maternal Grandmother ??? Diabetes Maternal Grandfather ??? Diabetes Paternal Grandmother ??? Diabetes Paternal Grandfather BP 128/68 Pulse (!) 130 Temp 98.6 ??F (37 ??C) Resp 22 LMP 06/17/2015 SpO2 94% Is currently on her period. Physical Exam Constitutional: She is oriented to person, place, and time. She appears well- developed and well-nourished. She is active and cooperative. Non-toxic appearance. She does not have a sickly appearance. Here with her partner. She is coughing frequently. She has elevated pulse. Slight increased work of breathing. Obese HENT: Head: Normocephalic and atraumatic. Right Ear: Hearing, tympanic membrane, external ear and ear canal normal. Left Ear: Tympanic membrane is scarred. No middle ear effusion. Nose: Nose normal. Mouth/Throat: Uvula is midline, oropharynx is clear and moist and mucous membranes are normal. No oropharyngeal exudate, posterior oropharyngeal edema or posterior oropharyngeal erythema. No oropharyngeal edema or midline shift or structures Eyes: Conjunctivae are normal. Neck: Neck supple. Cardiovascular: Normal rate, regular rhythm and normal heart sounds. Exam reveals no gallop and no friction rub. No murmur heard. Pulses: Radial pulses are 2+ on the right side, and 2+ on the left side. Dorsalis pedis pulses are 2+ on the right side, and 2+ on the left side. Pulmonary/Chest: Effort normal. No accessory muscle usage. No respiratory distress. She has decreased breath sounds. She has wheezes (few scattered in lower lung jett). She has no rhonchi. She has no rales. Distant lung sounds Scattered coarse breath sounds in both lung bases. Abdominal: Soft. Normal appearance and bowel sounds are normal. There is no tenderness. Obese abdomen Musculoskeletal: Right lower leg: Normal. Left lower leg: Normal. No swelling, tenderness, cords or masses in either lower extremity Neurological: She is alert and oriented to person, place, and time. She is not disoriented. Gait normal. GCS eye subscore is 4. GCS verbal subscore is 5. GCS motor subscore is 6. Skin: Skin is warm and dry. No rash noted. She is not diaphoretic. Slightly flushed skin with coughing Psychiatric: She has a normal mood and affect. Her speech is normal and behavior is normal. Pleasant, calm Nursing note and vitals reviewed. Consult orders: None PCP: Provider None Results for orders placed or performed during the hospital encounter of 03/08/16 RAPID STREP Result Value Ref Range Rapid Strep A Screen Neg HEMAGRAM AND DIFFERENTIAL Result Value Ref Range WBC 21.39 (H) 4.0 - 12.4 K/cmm RBC 4.87 3.86 - 5.04 M/cmm Hemoglobin 15.2 11.6 - 15.2 gm/dl HCT 42.5 34.9 - 44.4 % MCV 87 81 - 98 fl MCH 31.2 26.7 - 33.3 pg MCHC 35.8 32.1 - 35.9 gm/dl RDW-CV 12.4 11.7 - 14.6 % RDW-SD 39.1 37.6 - 50.3 fl PLT 407 (H) 141 - 377 K/cmm MPV 10.2 9.5 - 12.7 fl Neutrophils 71.0 % Bands 3.0 % Lymphocytes 19.0 % Atyp Lymphs 1.0 % Monocytes 4.0 % Eosinophils 2.0 % ABS Neutrophils 15.19 (H) 2.20 - 8.85 K/cmm ABS Bands 0.64 K/cmm ABS Lymphs 4.06 (H) 1.09 - 3.30 K/cmm ABS Atyp Lymphs 0.21 K/cmm ABS Monocytes 0.86 (H) 0.1 - 0.8 K/cmm ABS Eosinophils 0.43 0.03 - 0.61 K/cmm Type of Diff: Manual COMPREHENSIVE METABOLIC PANEL (CMP) Result Value Ref Range Potassium 4.5 3.5 - 5.0 mEq/L Sodium 137 136 - 145 mEq/L Chloride 99 96 - 110 mEq/L CO2 27 24 - 32 mEq/L Total Alkaline Phosphatase 122 38 - 126 U/L Bilirubin, Total <0.5 <1.4 mg/dl AST 16 15 - 46 U/L ALT 17 <53 U/L Albumin 3.9 3.4 - 4.9 g/dl Total Protein 7.1 6.3 - 8.2 g/dl Creatinine 0.50 (L) 0.52 - 1.04 mg/dl GFR, Calculated 130 >60 ml/min/1.73m2 BUN 9 (L) 10 - 26 mg/dl Calcium 9.7 8.5 - 10.5 mg/dl Calculated Calcium 10.2 8.5 - 10.5 mg/dl Glucose, Serum 278 (H) 70 - 100 mg/dl Fasting? Unknown D-DIMER Result Value Ref Range D-Dimer <200 <230 ng/mL POCT URINE DIPSTICK Result Value Ref Range Color DARK YELLOW Clarity, UA Clear Glucose 2+ (A) Neg Bilirubin Neg Neg Ketones Trace (A) Neg Specific [place] >=1.030 1.001 - 1.035 Blood 1+ (A) Neg pH 5.5 4.6 - 8.0 Protein Trace (A) Neg Urobilinogen 0.2 0.2 - 1.0 E.U./dl Nitrite Neg Neg Leuk Esterase Neg Neg Tech ID [id number] Radiology orders: None Imaging Results CHEST PA AND LATERAL (Final result) Result time: 03/08/16 15:33:05 Final result Narrative: CHEST PA AND LATERAL 03/08/2016 3:21 PM Clinical History/Comments: COUGH, Three days of productive cough, blood tinged sputum Comparison: None. Technique: Frontal and lateral views of the chest were performed utilizing dual-energy technique. Findings: Soft tissues: Normal. Bones: Normal. Cardiac and mediastinal contours:Normal. Lungs: There is a small linear region of scarring within the inferior retrosternal region on the lateral view. The lungs are otherwise clear. Pleura/diaphragms:Normal. Impression: 1. No acute disease. This is a preliminary report dictated by Dr. Madhuri Wolf, interventional radiology tech, and has not been finalized by an attending radiologist. I have personally reviewed the images and the above interpretation and agree with the findings. Preliminary result Narrative: PRELIMINARY RESIDENT REPORT CHEST PA AND LATERAL 03/08/2016 3:21 PM Clinical History/Comments: COUGH, Three days of productive cough, blood tinged sputum Comparison: None. Technique: Frontal and lateral views of the chest were performed utilizing dual-energy technique. Findings: Soft tissues: Normal. Bones: Normal. Cardiac and mediastinal contours:Normal. Lungs: There is a small linear region of scarring within the inferior retrosternal region on the lateral view. The lungs are otherwise clear. Pleura/diaphragms:Normal. Impression: 1. No acute disease. This is a preliminary report dictated by Dr. Madhuri Wolf, interventional radiology tech, and has not been finalized by an attending radiologist. I have personally reviewed the images and the above interpretation and agree with the findings. Preliminary result Narrative: PRELIMINARY RESIDENT REPORT CHEST PA AND LATERAL 03/08/2016 3:21 PM Clinical History/Comments: COUGH, Three days of productive cough, blood tinged sputum Comparison: None. Technique: Frontal and lateral views of the chest were performed utilizing dual-energy technique. Findings: Soft tissues: Normal. Bones: Normal. Cardiac and mediastinal contours:Normal. Lungs: Normal. Pleura/diaphragms:Normal. Impression: 1. Normal chest x-ray. This is a preliminary report dictated by Dr. Madhuri Wolf, interventional radiology tech, and has not been finalized by an attending radiologist. No orders to display Relevant Data Procedures URGENT CARE COURSE A medical screening exam was performed. Patient is a 30-year-old female, recently on, but stopped insulin and glyburide for diabetes, who presents with three days of upper respiratory illness, sore throat, chest tightness. Initially, symptoms most concerning for upper respiratory illness, pharyngitis. She had nebulized albuterol which did help slightly to reduce work of breathing. X-ray is performed which is unremarkable. Blood work is performed that is significant for leukocytosis to 21,000 with bandemia. Normal electrolytes. D-dimer is negative. EKG shows no pattern of pathologic t-wave, st change. She developed low-grade fever and remained tachycardic and has lowered blood pressure. Given abnormal vital signs, leukocytosis in light of clinical history, she does merit further evaluation and monitoring. Discussed differential with patient. Consider pneumonia in light of dehydration. Also considered isendocarditis, pulmonary embolism (although negative d-dimer). Could also represent viral illness, considered among other diagnoses. She is transferred to the [facility] emergency department now in stable condition. IV inserted and normal saline is started. Attempted to collect blood cultures, but unable to do so as a set of bottles not available in our clinic at this moment. Spoke to Dr. Blanton to notify that patient will be arriving soon. Questions and concerns were answered. Patient expressed understanding of plan. Patient appreciative of care. ASSESSMENT AND PLAN Final diagnoses: Sore throat Cough Leukocytosis, unspecified type Tachycardia No supervision required. DISPOSITION: Transfered to Another Facility The patient's pain was managed to an adequate level weighing risk vs. benefit of further medications. Upon departure from [facility], the patient's pain was 9 on a zero to ten scale. Condition at departure from the [facility] : Stable MDM Signed: Scar Marquez MD 03/08/2016 16:48 * Naomi Ferrer, RN - 03/08/2016 1442 EDT Patient reports sore throat, dry cough with intermittent bloody sputum,body aches, sinus pain/pressure, sob,low back pain,sweats and chills, fatigue, decreased appetite, starting 03/05 and worsening since then. Using OTC robitussin, and tylenol with no improvement. Denies ear pain, nausea,vomiting,di arrhea. IDDM, reports has not checked blood sugar or been able to take insulin or glimeperide sinceSeptember 2015 due to loss of insurance. * Jeanne Shea RN - 03/08/2016 143 EDT Bed: [facility] Expected date: Expected time: Means of arrival: Comments: HOLD documented in this encounter Plan of Treatment Upcoming Encounters Date Type Department Care Team (Late st Contact Info) Description 02/21/2024 9:45 EDT Office Visit [facility] Adult Primary Care - [address] [phone] Carrington Calderon MD [address] [place] [phone] 02/27/2024 8:30 EDT Telemedicine [facility] Sleep Program - [address] [phone] Rn, Sleep 02/29/2024 10:30 EDT Appointment [facility] Radiology Nuclear Medicine and PET - [address] [phone] 02/29/2024 14:30 EDT Appointment [facility] Radiology Nuclear Medicine and PET [address] [phone] 03/01/2024 8:00 EDT Appointment [facility] Radiology Nuclear Medicine and PET [address] [address] 03/01/2024 9:30 EDT Appointment [facility] Radiology Nuclear Medicine and PET [address] [address] documented as of this encounter Procedures Procedure Name Priority Date/Time Associated Diagnosis Comments ECG REPORT - SCANNED 03/10/2016 9:47 EDT ED/URGENT CARE ADD-ON STAT 03/09/2016 13:00 EDT Leukocytosis, unspecified type URINE SEDIMENT (MICRO) WITHOUT REFLEX TO CULTURE STAT 03/08/2016 16:25 EDT Cough TEST, URINE Routine 03/08/2016 16:25 EDT POCT URINE DIPSTICK, CLINITEK STAT 03/08/2016 16:25 EDT Cough EKG 12-LEAD STAT 03/08/2016 16:14 EDT CHEST PA AND LATERAL STAT 03/08/2016 15:21 EDT D-DIMER STAT 03/08/2016 15:10 EDT Cough COMPLETE BLOOD COUNT AND DIFFERENTIAL STAT 03/08/2016 15:10 EDT Cough COMPREHENSIVE METABOLIC PANEL (CMP) STAT 03/08/2016 15:10 EDT Cough GROUP A STREP CULTURE STAT 03/08/2016 14:40 EDT Sore throat RAPID STREP STAT 03/08/2016 14:40 EDT Sore throat documented in this encounter Results * ECG REPORT - SCANNED (03/10/2016 9:47 EDT) 03/10/2016 9:47 EDT 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/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 BRAULIO GICAL ORDERABLES * ED/URGENT CARE ADD-ON (03/09/2016 13:00 EDT) Tests to be added URINE TEST 03/09/2016 12:58 EDT [facility] Number for problems [id number] (URGENT CARE) 03/09/2016 12:58 EDT [facility] Comment:Performed at [facility] [address], [place] TOPOGRAPHY UNKNOWN / Unknown 03/09/2016 13:00 EDT 03/09/2016 13:07 EDT cSar Marquez MD HEMATOLOGY & PF4 O RDERABLES Performing Organization Address [facility] Co de Phone Number [facility] [address] [place] [address] * TEST, URINE (03/08/2016 16:25 EDT) Result- Test, Ur Neg Neg 03/09/2016 13:15 EDT [facility] Comment: NOTE: False negative results may occur in women who are beyond 5-8 weeks gestation. Diagnosis of should be based on a correlation of test results with typical clinical signs and symptoms. Performed at [place] URINE / Unknown 03/08/2016 1 6:25 EDT 03/09/2016 13:06 EDT Scar Marquez MD URINALYSIS ORDERAB LES Performing Organization Address [facility] Co de Phone Number [facility] [address] [place] [address] * (ABNORMAL) URINE MICROSCOPIC ONLY (03/08/2016 16:25 EDT) WBC, UA less than 1 0 - 5 /HPF 03/08/2016 17:24 EDT [facility] RBC, UA less than 1 0 - 5 /HPF 03/08/2016 17:24 EDT [facility] Squam Epithel, UA Many(A) None seen /HPF 03/08/2016 17:24 EDT [facility] Renal Epithel, UA None seen None seen /HPF 03/08/2016 17:24 T [facility] Bacteria, UA None seen None seen /HPF 03/08/2016 17:24 EDT [facility] Crystals, UA None seen /HPF 03/08/2016 17:24 T [facility] Hyaline Casts, UA None seen /LPF 03/08/2016 17:24 [facility] UA Comment Microscopic results 03/08/2016 16:31 [facility] Comment: are unreliable on urines unrefrig >2hrs or refrig >8hrs. Mucus, UA Present 03/08/2016 17:24 [facility] Comment:Performed at [facility] [place], [place] Urine specimen (specimen) URINE / Unknown 03/08/2016 16:25 EDT 03/08/2016 16:57 EDT Scar Marquez MD URINALYSIS ORDERAB LES Performing Organization Address City/State/[facility] Co de Phone Number [facility] [address] [place] [address] * (ABNORMAL) POCT URINE DIPSTICK (03/08/2016 16:25 EDT) Color DARK YELLOW 03/08/2016 16:27 T [facility] Clarity, UA Clear 03/08/2016 16:27 T [facility] Glucose 2+(A) Neg 03/08/2016 16:27 T [facility] Bilirubin Neg Neg 03/08/2016 16:27 [facility] Ketones Trace(A) Neg 03/08/2016 16:27 T [facility] Specific [place] >=1.030 1.001 - 1.035 03/08/2016 16:27 T [facility] Blood 1+(A) Neg 03/08/2016 16:27 EDT [facility] pH 5.5 4.6 - 8.0 03/08/2016 16:27 EDT [facility] Protein Trace(A) Neg 03/08/2016 16:27 EDT [facility] Urobilinogen 0.2 0.2 - 1.0 E.U./dl 03/08/2016 16:27 EDT [facility] Nitrite Neg Neg 03/08/2016 16:27 EDT [facility] Leuk Esterase Neg Neg 03/08/2016 16:27 EDT [facility] pickup driver ID [id number] 03/08/2016 16:27 EDT [facility] Comment:Test performed at [facility] Urine specimen (specimen) URINE / Unknown 03/08/2016 16:25 EDT 03/08/2016 16:27 EDT Scar Marquez MD POINT OF CARE TEST ORDERABLES Performing Organization Address [facility]/State/[facility] Co de Phone Number [facility] [address] [place] [address] * EKG 12-LEAD (03/08/2016 16:14 EDT) 03/08/2016 16:1 4 EDT Narrative [facility] EKG - 03/08/2016 16:24 EDT ? PC Site ? Test Date: ?2016-03-08 Pat Name: ? CRISTY TALBOT ? Department: ?? [facility] ? Room: ? 06 Gender: ? 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 : ?1985 ? Requested By: JOHNNY Alonzo Order Number: [id number] ? Reading MD: ?? SCAR MARQUEZ MD ? Measurements Intervals ?Leighton ? Rate: ? 124 ?P: ?50 MA: ? 130 ?QRS: ?27 QRSD: ? 92 ? T: ?-14 QT: ? 336 ? QTc: ?483 ? Interpretive Statements SINUS TACHYCARDIA NONSPECIFIC T-WAVE ABNORMALITY ABNORMAL RHYTHM ECG Automated Interpretation. ??Provider Interpretation to follow. No previous ECG available for comparison No comparison. No pathologic ST t-wave change pattern. I reviewed the tracing and have either agreed or edited the findings in this report. Electronically Signed On 03-08-16 16:24:00 EDT by SCAR MARQUEZ MD. 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 Provider Interpretation to follow. No previous ECG available for comparison No comparison. No pathologic ST t-wave change pattern. I reviewed the tracing and have either agreed or edited the findings inthis report. Electronically Signed On 03-08-16 16:24:00 EDT by SCAR DEJESUS. Scar Marquez MD CARDIAC ECG ORDERA BLES [facility] EKG * CHEST PA AND LATERAL (03/08/2016 15:21 EDT) Anatomical Region Laterality Modality Other 03/08/2016 15:2 1 EDT 03/08/2016 15:33 EDT Narrative 03/08/2016 15:33 EDT CHEST PA AND LATERAL ??03/08/2016 3:21 PM Clinical History/Comments: COUGH, Three days of productive cough, blood tinged sputum Comparison: None. Technique: Frontal and lateral views of the chest were performed utilizing dual-energy technique. Findings: Soft tissues: ??Normal. Bones: Normal. Cardiac and mediastinal contours:Normal. Lungs: There is a small linear region of scarring within the inferior retrosternal region on the lateral view. The lungs are otherwise clear. ?? Pleura/diaphragms:Normal. Impression: 1. ??No acute disease. This is a preliminary report dictated by Dr. Madhuri Wolf, interventional radiology tech, and has not been finalized by an attending radiologist. I have personally reviewed the images and the above interpretation and agree with the findings. Procedure Note Babatunde Arshad MD - 03/08/2016 CHEST PA AND LATERAL 03/08/2016 3:21 PM Clinical History/Comments: COUGH, Three days of productive cough, blood tinged sputum Comparison: None. Technique: Frontal and lateral views of the chest were performed utilizing dual-energy technique. Findings: Soft tissues: Normal. Bones: Normal. Cardiac and mediastinal contours:Normal. Lungs: There is a small linear region of scarring within the inferior retrosternal region on the lateral view. The lungs are otherwise clear. Pleura/diaphragms:Normal. Impression: 1. No acute disease. This is a preliminary report dictated by Dr. Madhuri Wolf, interventional radiology tech, and has not been finalized by an attending radiologist. I have personally reviewed the images and the above interpretation and agree with the findings. Scar Marquez MD IMG DIAGNOSTIC [place] ORDERABLES * D-DIMER (03/08/2016 15:10 EDT) Pathologist [facility] D-Dimer <200 <230 ng/mL 03/08/2016 15:50 EDT [facility] Comment: CUTOFF VALUE FOR THE EXCLUSION OF DVT and PE: 230 ng/mL D-dimer units Any use of the age-adjusted cutoff value is a post-analytic modification of this FDA-approved test and is considered off-label use of the test result. [facility] laboratory does not have literature to support the validity of an age-adjusted cutoff for our specific assay. Performed at [place], [place] Blood specimen (specimen) BLOOD SPECIMEN / Unknown 03/08/2016 15:10 EDT 03/08/2016 15:38 EDT Scar Marquez MD HEMATOLOGY & PF4 O RDERABLES [facility] [address] [place] [address] * (ABNORMAL) COMPREHENSIVE METABOLIC PANEL (CMP) (03/08/2016 15:10 EDT) Pathologist [facility] Potassium 4.5 3.5 - 5.0 mEq/L 03/08/2016 16:07 [facility] Sodium 137 136 - 145 mEq/L 03/08/2016 16:07 [facility] Chloride 99 96 - 110 mEq/L 03/08/2016 16:07 [facility] CO2 27 24 - 32 mEq/L 03/08/2016 16:07 [facility] Total Alkaline Phosphatase 122 38 - 126 U/L 03/08/2016 16:07 [facility] Bilirubin, Total <0.5 <1.4 mg/dl 03/08/20 16 16:07 [facility] AST 16 15 - 46 U/L 03/08/2016 16:07 [facility] ALT 17 <53 U/L 03/08/2016 16:07 [facility] Albumin 3.9 3.4 - 4.9 g/dl 03/08/2016 16:07 [facility] Total Protein 7.1 6.3 - 8.2 g/dl 03/08/2016 16:07 [facility] Creatinine 0.50(L) 0.52 - 1.04 mg/dl 03/08/2016 16:07 [facility] GFR, Calculated 130 >60 ml/min/1.7 3m2 03/08/2016 16:07 [facility] Comment: eGFR calculated using CKD-EPI equation for non Americans. Multiply eGFR by 1.16 for Americans. BUN 9(L) 10 - 26 mg/dl 03/08/2016 16:07 [facility] Calcium 9.7 8.5 - 10.5 mg/dl 03/08/2016 16:07 [facility] Calculated Calcium 10.2 8.5 - 10.5 mg/dl 03/08/2016 16:07 [facility] Glucose, Serum 278(H) 70 - 100 mg/dl 03/08/2016 16:07 [facility] Fasting? Unknown 03/08/2016 15:39 [facility] Comment:Performed at [facility], [place], [place] Blood specimen (specimen) BLOOD SPECIMEN / Unknown 03/08/2016 15:10 EDT 03/08/2016 15:38 EDT Scar Marquez MD CHEMISTRY & BLOOD GAS ORDERABLES [facility] [address] [place] [address] * (ABNORMAL) HEMAGRAM AND DIFFERENTIAL (03/08/2016 15:10 EDT) WBC 21.39(H) 4.0 - 12.4 K/cmm 03/08/2016 15:50 [facility] RBC 4.87 3.86 - 5.04 M/cmm 03/08/2016 15:50 [facility] Hemoglobin 15.2 11.6 - 15.2 gm/dl 03/08/2016 15:50 [facility] HCT 42.5 34.9 - 44.4 % 03/08/2016 15:50 [facility] MCV 87 81 - 98 fl 03/08/2016 15:50 [facility] MCH 31.2 26.7 - 33.3 pg 03/08/2016 15:50 [facility] MCHC 35.8 32.1 - 35.9 gm/dl 03/08/2016 15:50 [facility] RDW-CV 12.4 11.7 - 14.6 % 03/08/2016 15:50 [facility] RDW-SD 39.1 37.6 - 50.3 fl 03/08/2016 15:50 [facility] PLT 407(H) 141 - 377 K/cmm 03/08/2016 15:50 [facility] MPV 10.2 9.5 - 12.7 fl 03/08/2016 15:50 [facility] Neutrophils 71.0 % 03/08/2016 16:07 [facility] % Bands 3.0 % 03/08/2016 16:07 [facility] Lymphocytes 19.0 % 03/08/2016 16:07 [facility] % Atyp Lymphs 1.0 % 03/08/2016 16:07 [facility] Monocytes 4.0 % 03/08/2016 16:07 [facility] Eosinophils 2.0 % 03/08/2016 16:07 [facility] ABS Neutrophils 15.19(H) 2.20 - 8.85 K/cmm 03/08/2016 16:07 [facility] ABS Bands 0.64 K/cmm 03/08/2016 16:07 [facility] ABS Lymphs 4.06(H) 1.09 - 3.30 K/cmm 03/08/2016 16:07 [facility] ABS Atyp Lymphs 0.21 K/cmm 6 16:07 [facility] ABS Monocytes 0.86(H) 0.1 - 0.8 K/cmm 03/08/2016 16:07 [facility] ABS Eosinophils 0.43 0.03 - 0.61 K/cmm 03/08/2016 16:07 [facility] Type of Diff: Manual 03/08/2016 16:07 [facility] Comment:Performed at [place], [place] Blood specimen (specimen) BLOOD SPECIMEN / Unknown 03/08/2016 15:10 EDT 03/08/2016 15:38 EDT Scar Marquez MD PACKAGES & DNA PRO BE ORDERABLES [facility] [address] [place] [address] * RAPID STREP (03/08/2016 14:40 EDT) Rapid Strep A Screen Neg 03/08/2016 15:09 T [facility] Comment:Performed at [place], [place] Specimen of unknown material (specimen) TOPOGRAPHY UNKNOWN / Unknown 03/08/2016 14:40 EDT 03/08/2016 14:58 EDT Scar Marquez MD MICROBIOLOGY - GEN ERAL ORDERABLES [facility] [address] [place] [address] * PHARYNGITIS CULTURE (03/08/2016 14:40 EDT) Result No group A beta streptococci isolated. Usual devin-pharyngeal candis. 03/10/2016 8:14 EDT [facility] Specimen of unknown material (specimen) ENTIRE THROAT / Unknown 03/08/2016 14:40 EDT 03/08/2016 19:07 EDT Comment:Specimen submitted o n a flocked swab. Scar Marquez MD MICROBIOLOGY - GEN ERAL ORDERABLES Performing Organization Address City/[facility] Co de Phone Number [facility] [address] [place] [address] documented in this encounter Visit Diagnoses Diagnosis Leukocytosis, unspecified type- Primary Sore throat Acute pharyngitis Cough Tachycardia Tachycardia, unspecified documented in this encounter Administered Medications Inactive Administered Medications - up to 3 most recent administrations Medication Order MAR Action Action Date Dose Rate Site acetaminophen (TYLENOL) tablet 650 mg 650 mg, oral, NOW X1, 1 dose, On Tue03/08/16 at 1645, Routine Given 03/08/2016 16:50 EDT 650 mg albuterol (ACCUNEB) nebulizer solution 2.5 mg 2.5 mg, nebulization, NOW X1, 1 dose, On Tue03/08/16 at 1515, Routine Given 03/08/2016 15:24 EDT 2.5 mg sodium chloride 0.9 % BOLUS 1,000 mL 1,000 mL, intravenous, NOW X1, 1 dose, On Tue03/08/16 at 1645, Routine New Bag 03/08/2016 16:56 EDT 1,000 mL documented in this encounter Discontinued Medications Medication Sig Discontinue Reason Start Date End Da te ferrous sulfate 324 mg (65 mg iron) tablet,delayed release (DR/EC) Take 324 mg by mouth daily with breakfast. Therapy completed 03/08/2016 oxyCODONE-acetaminophen (PERCOCET) 5-325 mg per tablet Take 1-2 Tabs by mouth every 6 hours as needed for Pain. Earliest Fill Date: 08/31/15 Daily Max: 8 Tabs Therapy completed 08/31/2015 03/08/2016 PROGESTERONE MISC by misc (non-drug; combo route) route. Therapy completed 03/08/2016 documented as of this encounter Active and Recently Administered Medications Times are shown in EDT. Scheduled Medication Order 03/06/2016 03/07/2016 03/08/2016 acetaminophen (TYLENOL) tablet 650 mg (COMPLETED) 650 mg, oral, NOW X1, 1 dose, On 03/08/16 at 1645, Routine 1650 (Given - Provid er: Genie Crowley, MARCELO) albuterol (ACCUNEB) nebulizer solution 2.5 mg (COMPLETED) 2.5 mg, nebulization, NOW X1, 1 dose, On Tue03/08/16 at 1515, Routine 1524 (Given - Provid er: Nicole Castellanos LPN) sodium chloride 0.9 % BOLUS 1,000 mL (COMPLETED) 1,000 mL, intravenous, NOW X1, 1 dose, On 03/08/16 at 1645, Routine 1656 (New Bag - Prov ider: Naomi Ferrer RN) documented in this encounter Orders Nursing Count Last Ordered Date First Orde red Date PULSE OXIMETRY 1 03/08/2016 documented in this encounter Care Teams Tree Surgeon Helper Relationship Specialty Start Date End Date None, Provider PCP - General 03/08/16 08/21/18 documented as of this encounter
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
--- OUTSIDE RECORDS SUMMARY | 2023-12-16 00:47 | XMS_ITS | Encounter Summary ---
Author Organization [facility] Address [address] [place] [address] Care Team Providers Care Ic Design Engineer Name Role Phone Jasmin Jara Primary Care Provider Unavail able Encounter Details Date Type Department Care Team (Late st Contact Info) Description 02/16/2010 Abstract Used for ABSTRACTING Data [phone] Jasmin Jara PA Social History Tobacco Use Types Packs/Day [...] [facility] - [address] [id number] Carrington Calderon MD [address] [place] [phone] 02/27/2024 8:30 EDT Telemedicine [facility] Sleep Program - [address] [id number] Rn, Sleep 02/29/2024 10:30 EDT Appointment [facility] Radiology Nuclear Medicine and PET - [address] [phone] 02/29/2024 14:30 EDT Appointment [facility] Radiology Nuclear Medicine and PET - [address] [phone] 03/01/2024 8:00 EDT [facility] Nuclear Medicine and PET - [address] [address] 03/01/2024 9:30 EDT [facility] Rad[facility] Nuclear Medicine and PET - [address] [phone] documented as of this encounter Visit Diagnoses Not on filedocumented in this encounter Historical Medications * This list may reflect changes made after this encounter. Medication Sig Dispensed Refills Start Date End Date acetaminophen (APAP) 500 mg tablet Take 1,000 mg by mouth every 6 hours. 01/01/2015 topiramate (TOPAMAX) 25 mg tablet Take 25 mg by mouth 2 times daily. 05/10/2010 added in this encounter Care Teams Ic Design Engineer Relationship Specialty Start Date End Date Jasmin Jara PA PCP - General 10/06/09 05/09/10 documented as of this encounter
--- OUTSIDE RECORDS SUMMARY | 2023-12-16 00:47 | XMS_ITS | Encounter Summary ---
Author Organization [facility] Address [address] [place] [address] Care Team Providers Care Looper Operator Name Role Phone Nimisha Clifton [address]IGHW[address] SAFETY ENGINEER Primary Care Provider [phone] Encounter Details Date Type Department Care Team (Late st Contact Info) Description 09/03/2015 Results Only [facility] Adult Primary Care - [address] [phone] Nimisha Clifton, GUSTAVO [address] [phone] Social History Tobacco Use Types Packs/Day Years [...] Visit [facility] Adult Primary Care [address] [phone] Carrington Calderon MD [address] [phone] 02/27/2024 8:30 EDT Telemedicine [facility] Sleep Program - [address] [place] [address] Rn, Sleep 02/29/2024 10:30 EDT Appointment [facility] Radiology Nuclear Medicine and PET [address] [address] 02/29/2024 14:30 EDT Appointment [facility] Radiology Nuclear Medicine and PET [address] [address] 03/01/2024 8:00 EDT Appointment [facility] Radiology Nuclear Medicine and PET [address] [address] 03/01/2024 9:30 EDT Appointment [facility] Radiology Nuclear Medicine and [address] [address] documented as of this encounter Procedures Procedure Name Priority Date/Time Associated Diagnosis Comments T4, FREE REFLEX Routine 09/03/2015 12:33 EDT documented in this encounter Results * T4, FREE REFLEX (09/03/2015 12:33 EDT) Free T4 1.3 0.8 - 1.8 ng/dl 09/03/2015 18:43 EDT [facility] BLOOD SPECIMEN / Unknown 09/03/2015 12:33 EDT 09/03/2015 13:37 EDT Nimisha Clifton NP CHEMISTRY & BLOOD GAS ORDERABLES [facility] [address] [place] [address] documented in this encounter Visit Diagnoses Not on filedocumented in this encounter Care Teams Looper Operator Relationship Specialty Start Date End Date Nimisha Clifton NP 1 [facility] 1 [place] [address] PCP - General 08/28/15 03/07/16 documented as of this encounter
--- OUTSIDE RECORDS SUMMARY | 2023-12-16 00:47 | XMS_ITS | Encounter Summary ---
Author Organization [facility] Address [address] [place] [address] Care Team Providers Care Manager Office Services Name Role Phone Madeline Caputo Primary Care Provider [phone] Reason for Visit * Reason Comments Blood Sugar Problem NPD Encounter Details Date Type Department Care Team (Latest Contact Info) Description 05/12/2010 15:00 EST Office Visit [facility] Endocrinology - [facility] [address] [place], [place] [phone] Fermin Srinivasan MD [address] [place] [address] [address] [place] [address] Diabetes (CMS-HCC) ([facility]) (Primary Dx); Obesity, unspecified Social History Tobacco Use Types Packs/Day [...] Sign Reading Time Taken Comments Blood Pressure 116/84 05/12/2010 1549 EST Pulse 88 05/12/2010 1549 EST Temperature - - Respiratory Rate - - Oxygen Saturation - - Inhaled Oxygen Concentration - - Weight 138.8 kg (306 lb) 05/12/2010 1549 EST Height 162.6 cm (5' 4) 05/12/2010 1549 EST Body Mass Index 52.52 05/12/2010 1549 EST documented in this encounter Patient Instructions * Patient Instructions* Fermin Srinivasan MD - 05/12/2010 17:03 EST Recent A1c from [facility] 7.7%. Goal will be less than 7%. To get there, fasting BG less than 130. 1) Stop metformin 2) Start glimepiride 2 mg each morning 3) Minimum 2 BG tests daily - fasting and either presuppeer (goal less than 130) or 2 hours post supper (goal less than 160) 4) Mett with dietition 5) Regular physical activity. 6) RTC med June. documented in this encounter Ordered Prescriptions Prescription Sig Dispensed Refills Start Date End Da te glimepiride (AMARYL) 2 mg tablet Take 1 Tab by mouth every morning. 30 Tab 12 05/12/2010 07/15/2016 documented in this encounter Progress Notes * Fermin Srinivasan MD - 05/12/2010 1808 EST Subjective: Patient ID: Cristy Montelongo is an 25 y.o. female. Chief Complaint Patient presents with ??? Blood Sugar Problem NPD HPI 25 y.o female seen in consultation for Dr. Ramos for newly identified type 2 diabetes of background morbid obesity. Patient reports day before , family was playing with a blood glucose meter. She measured her value: was 300+. Saw PCP and blood testing 04/25 2010, and A1c 7.9%. Apparently was told that review of glucose testing from earlier that year showed high glucose - don't have those results. Was placed on metformin 500 mg BID. Also has made some diet changes in last year with a 50 lb weight reduction (cut out soda). Measuring 2 BG daily - fasting 200+ and other times similar or higher. Went to [facility] 05/10/10 because of BG 335. C/o chronic migraines, blurred vision, arthritis in legs and back. Has not changed since going on metformin. Also has chronic diarrhea that is episodic. That clearly has worsened with metformin- persisted for a month, and hurts ability for daily function. Denies shortness of breath, chest pain, dysuria, yeast infections but skin redness and itching around that area near fat/skin flaps. Has regular periods without hormones. Has achy legs and thighs, but no loss of feeling or tingling. Rare nocturia. No hypoglycemia. PMH: Depression (no medication) Morbid obesity Arthritis - unclear of details. FH: DM in all grandparents, ? Mother. Doesn't know about biologic father. 4 siblings, knows about 2, noDM. 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 Very unusual alcohol Activity - busy at school. Lives with in laws. Trying to control portions. Food choices difficult. Patient Active Problem List Diagnoses Code ??? Obesity, unspecified 278.00 ??? Migraine NOS/not intrcbl 346.90 ??? Depression 311L Past Medical History Diagnosis Date ??? Obesity, unspecified ??? Migraine NOS/not intrcbl ??? Diabetes mellitus Past Surgical History Procedure Date ??? Other surgical history tailbone (mostlikely pilonidal cyst) Family History Problem Relation Age of Onset ??? Diabetes Mother ??? Diabetes Maternal Grandmother ??? Diabetes Maternal Grandfather ??? Diabetes Paternal Grandmother ??? Diabetes Paternal Grandfather Social History Substance Use Topics ??? Tobacco Use: Never ??? Alcohol Use: No very rare Current outpatient prescriptions ordered prior to encounter Medication Sig Dispense Refill ??? glimepiride (AMARYL) 2 mg tablet Take 1 Tab by mouth every morning. 30 Tab 12 ??? metformin (GLUCOPHAGE) 500 mg tablet Take 500 mg by mouth 2 times daily. ??? azithromycin (ZITHROMAX Z-GEORGINA) 250 mg tablet Take 1 Tab by mouth SEE ADMIN INSTRUCTIONS for 5 days. Take 2 tabs today and 1 tab on days 2 through 5 4 Tab 0 ??? acetaminophen (APAP) 500 mg tablet Take 1,000 mg by mouth every 6 hours. Allergies Allergen Reactions ??? Percocet (Oxycodone-acetaminophen) Swelling of throat ??? Advil (Ibuprofen) Hives ROS - See HPI Objective: BP 116/84 Pulse 88 Ht 162.6 cm (64) Wt 138.801 kg (306 lb) LMP 05/10/2010 Physical Exam Constitutional: She is oriented to person, place, and time. She appears well- developed and well-nourished. HENT: Head: Normocephalic. Mouth/Throat: Oropharynx is clear and moist. Eyes: Conjunctivae are normal. Pupils are equal, round, and reactive to light. Neck: No thyromegaly present. Cardiovascular: Normal rate and normal heart sounds. Pulmonary/Chest: Breath sounds normal. Abdominal: She exhibits no mass. No tenderness. Musculoskeletal: She exhibits no edema. Neurological: She is alert and oriented to person, place, and time. She has normal reflexes. No cranial nerve deficit. Psychiatric: She has a normal mood and affect. Her behavior is normal. No acanthosis, stria, acromegaloid features Feet normal anatomy, no lesions, intact sensation monofilament and vibration. Review lab testing 04/25/2010 WBC 11.88, H/Hct 13.4/39.8 [place] Cr 0.72 AST 33, ALT 27 TC 140, TG 206, HDL 41, LDL 58 TSH 1.66 Assessment: 1) New onset type 2 DM on background of profound obesity and strong family history. Surprising thatBP and lipids generally very good without need for any medication. A1c 7.9%. Of concern that no clear response to starting metformin, plus she can't tolerate even 500 mg BID of that medication. Has made modest diet changes. Best plan for now is to stop metformin, replace with an GOLDMAN, and let her tryand work on lifestyle. Seeing dietition ion [facility] next week. Will come back in June. If continues with inadequate control, will consider GLP-1 receptor agonist versus basal insulin. Would not suggest TZD, as potential for weight gain in her is considerable. Plan: Recent A1c from [facility] 7.7%. Goal will be less than 7%. To get there, fasting BG less than 130. 1) Stop metformin 2) Start glimepiride 2 mg each morning 3) Minimum 2 BG tests daily - fasting and either presuppeer (goal less than 130) or 2 hours post supper (goal less than 160) 4) Meet with dietition 5) Regular physical activity. 6) RTC mid June. Cristy was seen today for blood sugar problem. Diagnoses and associated orders for this visit: Diabetes - POCT Hemoglobin A1c Other Orders - glimepiride (AMARYL) 2 mg tablet; Take 1 Tab by mouth every morning. documented in this encounter Plan of Treatment Upcoming Encounters Date Type Department Care Team (Late st Contact Info) Description 02/21/2024 9:45 EDT Office Visit [facility] Adult Primary Care - [address] [address] Carrington Calderon MD 1 [facility] [place] [address] 02/27/2024 8:30 EDT Telemedicine [facility] Sleep Program - [address] [address] Rn, Sleep 02/29/2024 10:30 EDT Appointment [facility] Radiology Nuclear Medicine and PET [address] [address] 02/29/2024 14:30 EDT Appointment [facility] Radiology Nuclear Medicine and PET [address] [address] 03/01/2024 8:00 EDT Appointment [facility] Radiology Nuclear Medicine and PET [address] [address] 03/01/2024 9:30 EDT Appointment [facility] Radiology Nuclear Medicine and PET [address] [phone] Scheduled Orders Name Type Priority Associated Diagnoses Orde r Schedule POCT HEMOGLOBIN A1C Point of Care Testing Routine Diabetes ([facility]-HCC) ([facility]) Ordered: 05/12/2010 documented as of this encounter Visit Diagnoses Diagnosis Diabetes ([facility])- Primary Type II or unspecified type diabetes mellitus without mention of complication, not stated as uncontrolled Obesity, unspecified documented in this encounter Care Teams Manager Office Services Relationship Specialty Start Date End Date Madeline Caputo PA [address] [place] [address] PCP - General 05/10/10 12/31/14 documented as of this encounter
--- OUTSIDE RECORDS SUMMARY | 2023-12-16 00:47 | XMS_ITS | Encounter Summary ---
Author Organization [facility] Address [address] [place] [address] Care Team Providers Care Operations Leader Name Role Phone Peytonjuan Nimisha Kelly MEDICAL CLAIMS ASSISTANT Primary Care Provider [phone] Encounter Details Date Type Department Care Team (Late st Contact Info) Description 09/03/2015 Phlebotomy Only [facility] - [address] [phone] It Infrastructure Manager, Outpatient Type 2 diabetes mellitus without complication (CMS-HCC) (HCC-CMS); Tachycardia; Depression, unspecified depression type Social History Tobacco Use Types Packs/Day Years [...] Description 02/21/2024 9:45 EDT Office Visit [facility] Adult Primary Care - [address] [phone] Carrington Calderon MD [address] [phone] 02/27/2024 8:30 EDT Telemedicine [facility] Sleep Program - [address] [phone] Rn, Sleep 02/29/2024 10:30 EDT Appointment [facility] Radiology Nuclear Medicine and PET [address] [address] 02/29/2024 14:30 EDT Appointment [facility] Radiology Nuclear Medicine and PET [address] [address] 03/01/2024 8:00 EDT Appointment [facility] Radiology Nuclear Medicine and PET [address] [address] 03/01/2024 9:30 EDT Appointment [facility] Radiology Nuclear Medicine and PET [address] [address] documented as of this encounter Procedures Procedure Name Priority Date/Time Associated Diagnosis Comments THYROID CASCADE Routine 09/03/2015 12:33 EDT Tachycardia Depression, unspecified depression type HEMOGLOBIN A1C Routine 09/03/2015 12:33 EDT Type 2 diabetes mellitus without complication ([facility]-HCC) ([facility]) COMPREHENSIVE METABOLIC PANEL (CMP) Routine 09/03/2015 12:33 EDT Type 2 diabetes mellitus without complication ([facility]) ([facility]) documented in this encounter Results * (ABNORMAL) THYROID CASCADE (09/03/2015 12:33 EDT) TSH 0.48(L) 0.55 - 4.78 uIU/ml 09/03/2015 18:19 EDT [facility] Comment: TSH cascade is not recommended for patients in which pituitary or hypothalamic disorders are suspected. Blood specimen (specimen) BLOOD SPECIMEN / Unknown 09/03/2015 12:33 EDT 09/03/2015 13:37 EDT Nimisha Clifton NP CHEMISTRY & BLOOD GAS ORDERABLES [facility] [address] [place] [phone] * HEMOGLOBIN A1C (09/03/2015 12:33 EDT) Hemoglobin A1C 8.8 % 09/03/2015 14:56 [facility] Comment: Reference Range: <5.7% Normal 5.7-6.4% Increased risk for diabetes =>6.5% Diagnostic for diabetes (if confirmed) The A1c goal for non adults in general is <7%. The A1c goal for selected patients may be significantly lower than 7% if this can be achieved without significant hypoglycemia or other adverse effects of treatment. Est Avg Glucose 206 mg/dl 6 14:56 [facility] Comment: eAG represents the A1c result expressed as average glucose in mg/dl. Blood specimen (specimen) BLOOD SPECIMEN / Unknown 09/03/2015 12:33 EDT 09/03/2015 13:37 EDT Nimisha Clifton NP CHEMISTRY & BLOOD GAS ORDERABLES Performing Organization Address City/State/[facility] Co de Phone Number [facility] [address] [place] [address] * (ABNORMAL) COMPREHENSIVE METABOLIC PANEL (CMP) (09/03/2015 12:33 EDT) Pathologist [facility] Potassium 4.1 3.5 - 5.0 mEq/L 09/03/2015 14:15 [facility] Sodium 141 136 - 145 mEq/L 09/03/2015 14:15 [facility] Chloride 101 96 - 110 mEq/L 09/03/2015 14:15 [facility] CO2 29 24 - 32 mEq/L 09/03/2015 14:15 [facility] Total Alkaline Phosphatase 84 38 - 126 U/L 09/03/2015 14:15 [facility] Bilirubin, Total <0.5 <1.4 mg/dl 09/03/19 16 14:15 [facility] AST 19 15 - 46 U/L 09/03/2015 14:15 [facility] ALT 33 <53 U/L 09/03/2015 14:15 [facility] Albumin 3.9 3.4 - 4.9 g/dl 09/03/2015 14:15 [facility] Total Protein 6.6 6.3 - 8.2 g/dl 09/03/2015 14:15 [facility] Creatinine 0.48(L) 0.52 - 1.04 mg/dl 09/03/2015 14:15 [facility] GFR, Calculated 132 >60 ml/min/1.7 3m2 09/03/2015 14:15 [facility] Comment: eGFR calculated using CKD-EPI equation for non Americans. Multiply eGFR by 1.16 for Americans. BUN 11 10 - 26 mg/dl 09/03/2015 14:15 [facility] Calcium 9.8 8.5 - 10.5 mg/dl 09/03/2015 14:15 [facility] Calculated Calcium 10.3 8.5 - 10.5 mg/dl 09/03/2015 14:15 [facility] Glucose, Serum 205(H) 70 - 100 mg/dl 09/03/2015 14:15 [facility] Fasting? No 09/03/2015 12:23 [facility] Blood specimen (specimen) BLOOD SPECIMEN / Unknown 09/03/2015 12:33 EDT 09/03/2015 13:37 EDT Nimisha Clifton NP CHEMISTRY & BLOOD GAS ORDERABLES [facility] [address] [place] [address] documented in this encounter Visit Diagnoses Diagnosis Type 2 diabetes mellitus without complication ([facility]) Type II or unspecified type diabetes mellitus without mention of complication, not stated as uncontrolled Tachycardia Tachycardia, unspecified Depression, unspecified depression type documented in this encounter Care Teams Operations Leader Relationship Specialty Start Date End Date Nimisha Clifton NP 1 [facility] 1 [place] [address] PCP - General 08/28/15 03/07/16 documented as of this encounter
--- OUTSIDE RECORDS SUMMARY | 2023-12-16 00:47 | XMS_ITS | Encounter Summary ---
Author Organization [facility] Address [address] [place] [address] Care Team Providers Care Travel Services Professional Name Role Phone Jasmin Jara Primary Care Provider Unavail able Encounter Details Date Type Department Care Team (Late st Contact Info) Description 10/20/2009 Abstract [facility] Plastic, Reconstructive & Cosmetic Surgery - [address], [address] [place] [address] Jasmin Jara PA Social History Tobacco Use [...] [facility] - [address] [phone] Carrington Calderon MD [address] [place] [phone] 02/27/2024 8:30 EDT Telemedicine [facility] Sleep Program - [address] [phone] Rn, Sleep 02/29/2024 10:30 EDT [facility] Radiology Nuclear Medicine and PET - [facility] [address] [place], [place] [phone] 02/29/2024 14:30 EDT Appointment [facility] Radiology Nuclear Medicine and PET - [address] [address] 03/01/2024 8:00 EDT Appointment [facility] Radiology Nuclear Medicine and PET [address] [address] 03/01/2024 9:30 EDT Appointment [facility] Radiology Nuclear Medicine and PET [address] [address] documented as of this encounter Visit Diagnoses Not on filedocumented in this encounter Care Teams Travel Services Professional Relationship Specialty Start Date End Date Jasmin Jara PA PCP - General 10/06/09 05/09/10 documented as of this encounter
--- OUTSIDE RECORDS SUMMARY | 2023-12-16 00:47 | XMS_ITS | Encounter Summary ---
Author Organization [facility] Address [address] [place] [address] Care Team Providers Care Pediatric Clinical Dietician Name Role Phone Unavailable Primary Care Provider Unavailabl e Encounter Details Date Type Department Care Team (Late st Contact Info) Description 09/27/2006 9:23 EDT Hospital Encounter [facility] - Maple conversion [address] [place] [address] Fermin Lovett MD Social History Tobacco Use Types Packs/Day Years Used Date Smoking Tobacco: Every Day Cigarettes 0.5 13.1 Started: 11/10/2010 Smokeless Tobacco: Never Comments:06/13/20 actively try ing to quit about 5-8 cigs/day Alcohol Use Standard Drinks/Week Comments Yes 0 (1 standard drink = 0.6 oz pur e alcohol) rarely C Utilities Answer Date Recorded In the past 12 months has [employer], gas, oil, or water [employer] threatened to shut off services in your [...] any time in the past 12 m [facility], were you homeless or [...] 21:05 EDT documented as of this encounter Plan of Treatment Upcoming Encounters Date Type Department Care Team (Late st Contact Info) Description 02/21/2024 9:45 EDT Office Visit [facility] Adult Primary Care - [address] [id number] Carrington Calderon MD [address] [place] [address] [phone] 02/27/2024 8:30 EDT Telemedicine [facility] Sleep Program - [address] [phone] Rn, Sleep 02/29/2024 10:30 EDT Appointment [facility] Radiology Nuclear Medicine and PET [address] [phone] 02/29/2024 14:30 EDT Appointment [facility] Radiology Nuclear Medicine and PET [address] [id number] 03/01/2024 8:00 EDT Appointment [facility] Radiology Nuclear Medicine and PET [address] [phone] 03/01/2024 9:30 EDT Appointment [facility] Radiology Nuclear Medicine and PET [address] [id number] documented as of this encounter Procedures Procedure Name Priority Date/Time Associated Diagnosis Comments SED RATE Routine 09/27/2006 10:36 EDT COMPLETE BLOOD COUNT AND DIFFERENTIAL Routine 09/27/2006 10:36 EDT COMPREHENSIVE METABOLIC PANEL (CMP) Routine 09/27/2006 10:36 EDT documented in this encounter Results * (ABNORMAL) SED. RATE:ILEANAJUANABIEL (09/27/2006 10:36 EDT) Sed. Rate Lilian 47(H) 0 - 20 mm/hr [facility] Comment: Note: Sample greater than 4 hrs old (but less than 12 hrs) when tested. If refrigerated, sample is stable when tested within 12 hours of collection. 09/27/2006 10:3 6 EDT 09/27/2006 16:29 EDT Fermin Lovett MD HEMATOLOGY & P F4 ORDERABLES [facility] [address] [place] [address] * (ABNORMAL) COMPREHENSIVE METABOLIC PANEL (09/27/2006 10:36 EDT) Potassium 4.3 3.5 - 5.0 mEq/L [facility] Sodium 141 136 - 145 mEq/L [facility] Chloride 105 96 - 110 mEq/L [facility] CO2 29 24 - 32 mEq/L [facility] Total Alkaline Phosphatase 113 38 - 126 U/L [facility] Bilirubin, Total <0.5 0.2 - 1.3 mg/dl [facility] AST 38 15 - 46 U/L [facility] ALT 65(H) 9 - 52 U/L [facility] Albumin 4.5 3.4 - 4.9 g/dl [facility] Total Protein 7.4 6.5 - 8.3 g/dl [facility] Creatinine 0.81 0.7 - 1.5 mg/dl [facility] GFR, Calculated >60 ml/min/1.7 3m2 [facility] BUN 10 10 - 26 mg/dl [facility] Calcium 10.5 8.5 - 10.5 mg/dl [facility] Calculated Calcium 10.4 8.5 - 10.5 mg/dl [facility] Glucose, Serum 98 70 - 100 mg/dl [facility] Fasting? Yes [facility] Albumin/Globulin Ratio 1.6 [facility] 09/27/2006 10:3 6 EDT 09/27/2006 16:29 EDT Fermin Lovett MD CHEMISTRY & BL OOD GAS ORDERABLES [facility] [address] [place] [address] * (ABNORMAL) HEMAGRAM AND DIFFERENTIAL (09/27/2006 10:36 EDT) WBC 8.21 4.0 - 12.4 K/cmm [facility] RBC 4.65 3.86 - 5.04 M/cmm [facility] Hemoglobin 14.0 11.6 - 15.2 gm/dl [facility] HCT 40.5 34.9 - 44.4 % [facility] MCV 87 81 - 98 fl [facility] MCH 30.1 26.7 - 33.3 pg [facility] MCHC 34.5 32.1 - 35.9 gm/dl [facility] PLT 441(H) 141 - 320 K/cmm [facility] RDW-CV 13.8 11.7 - 14.6 % [facility] % Neutrophils 59.5 45.5 - 79.7 % [facility] % Lymphocytes 31.4 15.0 - 46.8 % [facility] % Monocytes 7.4 1.8 - 12.0 % [facility] % Eosinophils 1.2 0.6 - 6.9 % [facility] % Basophils 0.5 0.2 - 1.4 % [facility] ABS Neutrophils 4.89 2.20 - 8.85 K/cmm [facility] ABS Lymphs 2.58 1.09 - 3.30 K/cmm [facility] ABS Monocytes 0.60 0.1 - 0.8 K/cmm [facility] ABS Eosinophils 0.10 0.03 - 0.61 K/cmm [facility] ABS Basophils 0.04 0.01 - 0.11 K/cmm [facility] Type of Diff: Automated [facility] 09/27/2006 10:3 6 EDT 09/27/2006 16:29 EDT Fermin Lovett MD PACKAGES & DNA PROBE ORDERABLES Performing Organization Address City/State/[facility] Co de Phone Number [facility] [address] [place] [phone] documented in this encounter Visit Diagnoses Not on filedocumented in this encounter Additional Health Concerns Infection Onset Date Last Indicated Resolved Time R/O COVID-19 08/04/2020 08/04/2020 08/04/2020 11:4 0 EST documented as of this encounter
--- OUTSIDE RECORDS SUMMARY | 2023-12-16 00:47 | XMS_ITS | Encounter Summary ---
Author Organization [facility] Address [address] [place] [address] Care Team Providers Care Graphics Manager Name Role Phone None, Provider Primary Care Provider Unavailabl e Encounter Details Date Type Department Care Team (Late st Contact Info) Description 08/22/2015 Documentation Visit [facility] - [address] [phone] Broderick Wolff MD [address] [facility], Level [address] [place] [phone] Social History Tobacco Use Types Packs/Day Years Used Date Smoking Tobacco: Every Day Cigarettes Alcohol Use Standard Drinks/Week Comments No 0 (1 standard drink = 0.6 oz pur e alcohol) very rare Comments Yes Sex and Gender Information Value Date Recorded Sex Assigned at Not on file Gender Identity Female 06/18/2019 8:54 EST Sexual Orientation Not on file documented as of this encounter Progress Notes * Mary Whitney - 08/22/2015 1035 EDT episode and dating added for consult on 08.26.15 Mary Whitney documented in this encounter Plan of Treatment Upcoming Encounters Date Type Department Care Team (Late st Contact Info) Description 02/21/2024 9:45 EDT Office Visit [facility] Adult Primary [facility] - [place] [address] [place] [address] Carrington Calderon MD [address] [place] [address] 1 [place] [phone] 02/27/2024 8:30 EDT Telemedicine [facility] Sleep Program - [address] [address] Rn, Sleep 02/29/2024 10:[address] [facility] Radiology Nuclear Medicine and PET - [address] [phone] 02/29/2024 14:30 EDT Appointment [facility] Radiology Nuclear Medicine and PET [address] [phone] 03/01/2024 8:00 EDT Appointment [facility] Radiology Nuclear Medicine and PET [address] [phone] 03/01/2024 9:30 EDT Appointment [facility] Radiology Nuclear Medicine and PET [address] [phone] documented as of this encounter Visit Diagnoses Not on filedocumented in this encounter Care Teams Graphics Manager Relationship Specialty Start Date End Date None, Provider PCP - General 01/01/15 08/27/15 documented as of this encounter
--- OUTSIDE RECORDS SUMMARY | 2023-12-16 00:47 | XMS_ITS | Encounter Summary ---
Author Organization [facility] Address [address] [place] [address] Care Team Providers Care Form Designer Name Role Phone Unavailable Primary Care Provider Unavailabl e Encounter Details Date Type Department Care Team (Late st Contact Info) Description 07/28/2006 15:28 EST Hospital Encounter [facility] - Maple conversion [address] [place] [address] Elise Vanegas MD [address] [place] [address] Social History Tobacco Use Types Packs/Day Years Used Date Smoking Tobacco: Every Day Cigarettes 0.5 13.1 Started: 11/10/2010 Smokeless Tobacco: Never Comments:06/13/20 actively try ing to quit about 5-8 cigs/day Alcohol Use Standard Drinks/Week Comments Yes 0 (1 standard drink = 0.6 oz pur e alcohol) rarely [facility] Utilities Answer Date Recorded In the past 12 months has [employer], gas, oil, or water [employer] threatened to shut off services in your [...] any time in the past 12 m [facility], were you homeless or living in [...] Visit [facility] Adult Primary Care [address] [address] Carrington Calderon MD [address] [place] [address] [phone] 02/27/2024 8:30 EDT Telemedicine [facility] Sleep Program - [address] [phone] Rn, Sleep 02/29/2024 10:30 EDT Appointment [facility] Radiology Nuclear Medicine and PET [address] [phone] 02/29/2024 14:30 EDT Appointment [facility] Radiology Nuclear Medicine and PET [address] [phone] 03/01/2024 8:00 EDT Appointment [facility] Radiology Nuclear Medicine and PET [address] [phone] 03/01/2024 9:30 EDT Appointment [facility] Radiology Nuclear Medicine and PET [address] [phone] documented as of this encounter Visit Diagnoses Not on filedocumented in this encounter Additional Health Concerns Infection Onset Date Last Indicated Resolved Time R/O COVID-19 08/04/2020 08/04/2020 08/04/2020 11:4 0 EST documented as of this encounter
--- OUTSIDE RECORDS SUMMARY | 2023-12-16 00:47 | XMS_ITS | Encounter Summary ---
Author Organization [facility] Address [address] [place] [address] Care Team Providers Care Utility Forester Name Role Phone None, Provider Primary Care Provider Unavailabl e Encounter Details Date Type Department Care Team (Late st Contact Info) Description 07/23/2015 Results Only [facility]- [facility] [phone] Robyn Bautista MD [address] [place] [address] [phone] Social History Tobacco Use Types Packs/Day Years [...] [facility] Adult Primary Care - [address] [phone] Carrington Calderon MD [address] [phone] 02/27/2024 8:30 EDT Telemedicine [facility] Sleep Program - [address] [phone] Rn, Sleep 02/29/2024 10:30 EDT Appointment [facility] Radiology Nuclear Medicine and PET - [address] [phone] 02/29/2024 14:30 EDT Appointment [facility] Radiology Nuclear Medicine and PET [address] [address] 03/01/2024 8:00 EDT Appointment [facility] Radiology Nuclear Medicine and PET [address] [address] 03/01/2024 9:30 EDT Appointment [facility] Radiology Nuclear Medicine and PET [address] [address] documented as of this encounter Procedures Procedure Name Priority Date/Time Associated Diagnosis Comments PROGESTERONE Routine 07/23/2015 8:56 EST QUANT BETA HCG, Routine 07/23/2015 8:56 EST documented in this encounter Results * PROGESTERONE (07/23/2015 8:56 EST) Progesterone 9.5 ng/ml 07/23/2015 11:47 EST [facility] Comment: NON- FEMALES: follicular phase: ??<0.2-1.4 ng/mL luteal phase: 3.3-25.6 ng/ml postmenopausal: ??<0.2-0.7 ng/mL FEMALES: first trimester: 11.2-90.0 ng/ml second trimester: 25.6-89.4 ng/ml third trimester: 48.4-422.5 ng/ml ECTOPIC PREGNANCIES: consult pathologist BLOOD SPECIMEN / Unknown 07/23/2015 8:56 EST 07/23/2015 10:06 EST Robyn Bautista MD CHEMISTRY & BL OOD GAS ORDERABLES [facility] [address] [place] [address] * (ABNORMAL) HCG FOR (07/23/2015 8:56 EST) Quant Beta HCG, Preg 2,093(H) <5 mIU/ml 07/23/2015 10:55 EST [facility] Comment: Reference Range: Negative = <5 Indeterminate = 5-25 recommend repeat in 48 hours. Positive = >25 BLOOD SPECIMEN / Unknown 07/23/2015 8:56 EST 07/23/2015 10:06 EST Robyn Bautista MD CHEMISTRY & BL OOD GAS ORDERABLES [facility] [address] [place] [address] documented in this encounter Visit Diagnoses Not on filedocumented in this encounter Care Teams Utility Forester Relationship Specialty Start Date End Date None, Provider PCP - General 01/01/15 08/27/15 documented as of this encounter
--- OUTSIDE RECORDS SUMMARY | 2023-12-16 00:47 | XMS_ITS | Encounter Summary ---
Author Organization [facility] Address [address] [place] [address] Care Team Providers Care Directional Bore Operator Name Role Phone None, Provider Primary Care Provider Unavailabl e Reason for Visit * Reason Comments Foot Injury States a log fell on her left foot about 1 hour ago while swimming. + pain, swelling, tingling, and numbness. Unable to walk on foot. No treatment [employer]. 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 Encounter Details Date Type Department Care Team (Late st Contact Info) Description 01/01/2015 0:26 EDT - 01/01/2015 2:25 EDT Emergency [facility] Emergency Department - [address] [phone] Kylah Whitaker PA-C [address] [place] [address], Level [address] [place] [address] Emergency, MD Ekaterina Contusion of left foot, initial encounter (Primary Dx) Discharge Disposition: Home [...] Sign Reading Time Taken Comments Blood Pressure 120/76 01/01/2015223 EDT Pulse 104 01/01/2015223 EDT Temperature 36.7 ??C (98.1 ??F) 01/01/2015 0030 EDT Respiratory Rate 16 01/01/20154 EDT Oxygen Saturation 100% 01/01/2015223 EDT Inhaled Oxygen Concentration - - Weight - - Height - - Body Mass Index - - documented in this encounter Discharge Instructions * Discharge Instructions* Kylah Whitaker PA - 01/01/2015 2:03 EDT Splint for comfort and utilize crutches Weight bear as tolerated Ibuprofen and or tylenol for pain as needed Follow up with your doctor or call for primary care for follow up on foot and for continual care for your diabetes Return for worsening symptoms * Attachments The following attachments cannot be sent through Care Everywhere. * BRUISES (URDU) documented in this encounter Medications at Time of Discharge Medication Sig Dispensed Refills Start Date End Date glimepiride (AMARYL) 2 mg tablet Take 1 Tab by mouth every morning. 30 Tab 12 05/12/2010 07/15/2016 documented as of this encounter Discharge Disposition Disposition Code Departure Means Destination Home or Self Care Walk-out Home documented in this encounter ED Notes * Kylah Whitaker PA - 01/02/2015 0144 EDT Images from the original note were not included. DOS: 01/01/2015 Chief Complaint Patient presents with ??? Foot Injury States a log fell on her left foot about 1 hour ago while swimming. + pain, swelling, tingling, andnumbness. Unable to walk on foot. No treatment [employer]. 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 HPI The patient is a 29 y.o. female who presents today with Foot Injury HPI Comments: 29-year-old female patient complaining of left foot pain. Patient states her and her significant other were swimming earlier and went to move a log which fell on her left foot. Patient with soft tissue swelling and ecchymosis noted and pain on ambulation. Patient notes sensation of numbness and tingling to the lateral 3 digits. The history is provided by the patient. Foot Injury Review of Systems Review of Systems Musculoskeletal: Left foot pain Skin: Positive for color change. Neurological: Positive for numbness. The patient's past medical, family and social history was reviewed and updated as needed. Allergies Allergen Reactions ??? Advil [Ibuprofen] Hives Vital Signs Temp: 36.7 ??C (98.1 ??F) Temp src: Temporal Pulse: 104 Resp: 16 SpO2: 100 % BP: 120/76 mmHg BP Device: BP Machine Patient Position: Sitting BP Cuff Location: Right arm O2 Device: None (Room air) Physical Exam Constitutional: She is oriented to person, place, and time. She appears well- developed and well-nourished. HENT: Head: Normocephalic. Eyes: Pupils are equal, round, and reactive to light. Neck: Normal range of motion. Musculoskeletal: Left ankle: Normal. Left lower leg: Normal. Feet: Neurological: She is alert and oriented to person, place, and time. Skin: Skin is warm and dry. Psychiatric: She has a normal mood and affect. Nursing note and vitals reviewed. RESULTS EKG orders: None Radiology orders: FOOT 3 OR MORE VIEWS Imaging Reviewed. I have independently reviewed the images. There are no significant abnormalities ED Lab Results Labs Reviewed GLUCOSE, GLUCOMETER - Abnormal Glucose, Fingerstick 152 (*) Final Returned Goods Receiving Clerk ID [id number] Final POCT GLUCOSE Procedures ED COURSE A medical screening exam was performed. Pt was seen and evaluated, pt placed in volar splint by vivien with use of OCL fiberglass material, and reviewed by me neuro vascular intact distally. Pt given crutches. ASSESSMENT AND PLAN Final diagnoses: Contusion of left foot, initial encounter ED Current Prescriptions None DISPOSITION: Discharged The patient's pain was managed to an adequate level weighing risk vs. benefit of further medications. Upon departure from the Emergency Department, the patient's pain was 0 on a zero to ten scale. Condition at departure from the Emergency Department: Good PCP: Provider None (General) MDM Number of Diagnoses or Management Options Contusion of left foot, initial encounter: Diagnosis management comments: Left foot pain, contusion, fx 4 Amount and/or Complexity of Data Reviewed Tests in the radiology section of CPT??: ordered and reviewed Review and summarize past medical records: yes Fermin Chowdary 01/02/2015 1:56 No flowsheet data found. * Radha Ritchie RN - 01/01/2015 0224 EDT Discharge instructions reviewed with pt and their family. No question/concerns re: discharge education. Pt aware of s/s to return to ER for re-eval. Pt signed understanding of discharge education andwas wheeled out without incident. * Niesha Trejo, RN - 01/01/2015 0042 EDT Ice pack applied to left foot. Call light within reach. Awaiting provider eval. documented in this encounter Plan of Treatment Upcoming Encounters Date Type Department Care Team (Late st Contact Info) Description 02/21/2024 9:45 EDT Office Visit [facility] Adult Primary Care - [address] [phone] Carrington Calderon MD [address] [place] [phone] 02/27/2024 8:30 EDT Telemedicine [facility] Sleep Program - [address] [phone] Rn, Sleep 02/29/2024 10:30 EDT Appointment [facility] Radiology Nuclear Medicine and PET [address] [phone] 02/29/2024 14:30 EDT Appointment [facility] Radiology Nuclear Medicine and PET [address] [phone] 03/01/2024 8:00 EDT Appointment [facility] Radiology Nuclear Medicine and [address] [phone] 03/01/2024 9:30 EDT Appointment [facility] Radiology Nuclear Medicine and PET [address] [phone] documented as of this encounter Procedures Procedure Name Priority Date/Time Associated Diagnosis Comments FOOT 3 OR MORE VIEWS STAT 01/01/2015 1:01 EDT GLUCOSE, GLUCOMETER Routine 01/01/2015 0 :53 EDT documented in this encounter Results * FOOT 3 OR MORE VIEWS (01/01/2015 1:01 EDT) Anatomical Region Laterality Modality Other 01/01/2015 1:01 EDT 01/01/2015 10:18 EDT Narrative 01/01/2015 10:18 EDT FOOT 3 OR MORE VIEWS ??01/01/2015 1:01 AM Signs and Symptoms/Comments: ??foot pain Comparisons: ??01/10/06 Technique: AP, lateral, and oblique views of the left foot were acquired. Findings: There is no acute fracture or dislocation. 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 A large spur is present at the calcaneal attachment of the plantar fascia. A small calcification projects over the dorsal aspect of the metatarsal region on the AP view. This may represent a vascular calcification. The bones, joint spaces, and soft tissues are otherwise unremarkable. I have personally reviewed the images and the above interpretation and agree with the findings. Procedure Note Pelon Thayer MD - 01/01/2015 FOOT 3 OR MORE VIEWS 01/01/2015 1:01 AM Signs and Symptoms/Comments: foot pain Comparisons: 01/10/06 Technique: AP, lateral, and oblique views of the left foot were acquired. Findings: There is no acute fracture or dislocation. 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 A large spur is present at the calcaneal attachment of the plantar fascia. A small calcification projects over the dorsal aspect of the metatarsal region on the AP view. This may represent a vascular calcification. The bones, joint spaces, and soft tissues are otherwise unremarkable. I have personally reviewed the images and the above interpretation and agree with the findings. Kylah Whitaker PA-C [facility] ORDERABLES * (ABNORMAL) GLUCOSE, GLUCOMETER (01/01/2015 0:53 EDT) Glucose, Fingerstick 152(H) 70 - 100 mg/dl 01/01/2015 0:56 EDT [facility] Returned Goods Receiving Clerk ID [id number] 01/01/2015 0:56 EDT [facility] Comment:Test Performed by [facility] BLOOD SPECIMEN / Unknown 01/01/2015 0:53 EDT 01/01/2015 0:56 EDT Provider Unknown CHEMISTRY & BLOOD GA S ORDERABLES [facility] [address] [place] [address] documented in this encounter Visit Diagnoses Diagnosis Contusion of left foot, initial encounter- Primary documented in this encounter Administered Medications Inactive Administered Medications - up to 3 most recent administrations Medication Order MAR Action Action Date Dose Rate Site acetaminophen (TYLENOL) tablet 650 mg 650 mg, oral, NOW X1, 1 dose, On Tue01/01/15 at 0130, STAT Given 01/01/2015 1:49 EDT 650 mg documented in this encounter Discontinued Medications Medication Sig Discontinue Reason Start Date End Da te metformin (GLUCOPHAGE) 500 mg tablet Take 500 mg by mouth 2 times daily. Therapy completed 05/10/2010 01/01/2015 acetaminophen (APAP) 500 mg tablet Take 1,000 mg by mouth every 6 hours. Therapy completed 01/01/2015 documented as of this encounter Active and Recently Administered Medications Times are shown in EDT. Scheduled Medication Order 12/30/2014 12/31/2014 01/01/2015 acetaminophen (TYLENOL) tablet 650 mg (COMPLETED) 650 mg, oral, NOW X1, 1 dose, On Tue01/01/15 at 0130, STAT 0149 (Given - Provid er: Radha Ritchie RN) documented in this encounter Orders Lab Orders Without Results Count Last Ordered D ate First Ordered Date POCT GLUCOSE 1 01/01/2015 documented in this encounter Care Teams Directional Bore Operator Relationship Specialty Start Date End Date None, Provider PCP - General 01/01/15 08/27/15 documented as of this encounter
--- OUTSIDE RECORDS SUMMARY | 2023-12-16 00:47 | XMS_ITS | Encounter Summary ---
Author Organization [facility] Address [address] [place] [address] Care Team Providers Care Radio Operator Name Role Phone Trinity Samaniego MD Primary Care Provider Encounter Details Date Type Department Care Team (Late st Contact Info) Description 09/18/2009 Abstract [facility] Family Medicine - [address] [address] Trinity Samaniego MD [address] [place] [phone] Obesity, unspecified; Migraine NOS/not intrcbl Social History Tobacco Use Types Packs/Day Years [...] [facility] Adult Primary Care - [address] [phone] Carrington Calderon MD [address] [phone] 02/27/2024 8:30 EDT Telemedicine [facility] Sleep Program - [address] [phone] Rn, Sleep 02/29/2024 10:30 EDT Appointment [facility] Radiology Nuclear Medicine and PET [address] [address] 02/29/2024 14:30 EDT Appointment [facility] Radiology Nuclear Medicine and PET [address] [address] 03/01/2024 8:00 EDT Appointment [facility] Radiology Nuclear Medicine and PET [address] [address] 03/01/2024 9:30 EDT Appointment [facility] Radiology Nuclear Medicine and PET [address] [address] documented as of this encounter Visit Diagnoses Diagnosis Obesity, unspecified Migraine, unspecified, without mention of intractable migraine without mention of status migrainosus documented in this encounter Care Teams Radio Operator Relationship Specialty Start Date End Date Trinity Samaniego MD [address] [place] [phone] PCP - General 09/16/09 10/05/09 documented as of this encounter
--- OUTSIDE RECORDS SUMMARY | 2023-12-16 00:47 | XMS_ITS | Encounter Summary ---
Author Organization [facility] Address [address] [place] [address] Care Team Providers Care Handwriting Expert Name Role Phone Jasmin Jara Primary Care Provider Unavail able Encounter Details Date Type Department Care Team (Late st Contact Info) Description 05/05/2010 Results Only [facility] Laboratory Services - [facility] ([facility]) [address] [place], [place] [address] Ann Booker MD [address] [place] [phone] Social History Tobacco Use Types Packs/Day Years [...] [facility] Adult Primary Care - [address] [phone] Carrington Calderon MD [address] [phone] 02/27/2024 8:30 EDT Telemedicine [facility] Sleep Program - [address] [phone] Rn, Sleep 02/29/2024 10:30 EDT Appointment [facility] Radiology Nuclear Medicine and PET [address] [address] 02/29/2024 14:30 EDT Appointment [facility] Radiology Nuclear [facility] and [address] [address] 03/01/2024 8:00 EDT Appointment [facility] Radiology Nuclear Medicine and [address] [address] 03/01/2024 9:30 EDT Appointment [facility] Radiology Nuclear Medicine and PET [address] [address] documented as of this encounter Procedures Procedure Name Priority Date/Time Associated Diagnosis Comments CYTOPATHOLOGY Routine 05/05/2010 0:00 EST documented in this encounter Results * CYTOPATHOLOGY (05/05/2010 0:00 EST) Pathology Report: CYTOPATHOLOGY REPORT ? Reports generated via electronic interface contain original data; ? however they are lacking the format of the original report. ? Caution should be taken when reading/interpreti ng unformatted reports. ? Name: ? CRISTY TALBOT ? Accession #: ? [id number] ? : ? 1985 (Age: 25) ??F ?Collect Date: ? 05/05/2010 ? Location: ? [facility] ? Receive Date: ? 05/07/2010 ? Provider: ?ANN REDD MD ? Copy to: ? Specimen/Source: ?Pap Test, Cervix/Endocervix, ThinPrep Imaging System ? with manual evaluation ? Last Menstrual Period: ? 11/03/10 ? SPECIMEN ADEQUACY ? Satisfactory for Evaluation ? - transformation zone component present ? GENERAL CATEGORIZATION ? Negative for Intraepithelial Lesion or Malignancy ? INTERPRETATION ? Shift in candis present suggestive of bacterial vaginosis. ? Document reviewed and electronically signed by: ? Rigo Stumler, CT(ASCP) ? Report Date: ??05/11/2010 12:55 ? End of Report ? MICHAEL WILLOUGHBY 05/05/2010 05/07/2010 Ann Booker MD PATHOLOGY ORDERABLES [facility] [address] [place] [address] documented in this encounter Visit Diagnoses Not on filedocumented in this encounter Care Teams Handwriting Expert Relationship Specialty Start Date End Date Jasmin Jara PA PCP - General 10/06/09 05/09/10 documented as of this encounter
--- OUTSIDE RECORDS SUMMARY | 2023-12-16 00:47 | XMS_ITS | Encounter Summary ---
Author Organization [facility] Address [address] [place] [address] Care Team Providers Care Rippler Name Role Phone Madeline Caputo Primary Care Provider [phone] Reason for Visit * Reason Comments Hyperglycemia Pt reports 335 FS at 2100, just dx with DM type 2 after thanksgiving started on metformin. Pt reports BUSH and generally not feeling well Encounter Details Date Type Department Care Team (Late st Contact Info) Description 05/10/2010 22:38 EST - 05/11/2010 0:55 EST Emergency [facility] Emergency Department - [address] [phone] Maj Almanza MD [address] [place] [phone] Doris Moreno MD [address] [place] [address], Level [address] [place] [phone] Emergency, MD Ekaterina Hyperglycemia; Bullous myringitis; Bronchitis; Headache Discharge Disposition: Home or Self Care Social History Tobacco Use Types Packs/Day Years Used Date Smoking Tobacco: Never Assessed Sex and Gender Information Value Date Recorded Sex Assigned at Not on file Gender Identity Female 06/18/2019 8:54 EST Sexual Orientation Not on file documented as of this encounter Last Filed Vital Signs Vital Sign Reading Time Taken Comments Blood Pressure 122/68 05/11/2010 0051 EST Pulse 114 05/10/2010 2242 EST Temperature 36 ??C (96.8 ??F) 05/10/2010 2242 EST Respiratory Rate 18 05/11/2010 0051 EST Oxygen Saturation 98% 05/11/2010 0051 EST Inhaled Oxygen Concentration - - Weight - - Height - - Body Mass Index - - documented in this encounter Discharge Instructions * Discharge Instructions* Maj Almanza MD - 05/10/2010 23:40 EST Call endocrine clinic tomorrow at [phone], let them know you were seen in ED and Dr. Mera approved you being seen for expedited New Diabetes appt Continue weight loss efforts Zithromax as prescribed. For second opinion re headaches : call Dr. Poe [phone] For appt. Please return if worsening symptoms or any new concerns. * Attachments The following attachments cannot be sent through Care Everywhere. * BRONCHITIS IN ADULTS: AFTER YOUR VISIT (JORDANIAN) * DIABETES CARE WHEN YOU ARE SICK: AFTER YOUR VISIT (JORDANIAN) * DIABETES DIET GUIDELINES: AFTER YOUR VISIT (JORDANIAN) documented in this encounter Medications at Time of Discharge Medication Sig Dispensed Refills Start Date End Date acetaminophen (APAP) 500 mg tablet Take 1,000 mg by mouth every 6 hours. 01/01/2015 azithromycin (ZITHROMAX Z-GEORGINA) 250 mg tablet Take 1 Tab by mouth SEE ADMIN INSTRUCTIONS for 5 days. Take 2 tabs today and 1 tab on days 2 through 5 4 Tab 0 05/10/2010 05/15/2010 metformin (GLUCOPHAGE) 500 mg tablet Take 500 mg by mouth 2 times daily. 05/10/2010 01/01/2015 documented as of this encounter Ordered Prescriptions Prescription Sig Dispensed Refills Start Date End Da te azithromycin (ZITHROMAX Z-GEORGINA) 250 mg tablet Take 1 Tab by mouth SEE ADMIN INSTRUCTIONS for 5 days. Take 2 tabs today and 1 tab on days 2 through 5 4 Tab 0 05/10/2010 05/15/2010 documented in this encounter Discharge Disposition Disposition Code Departure Means Destination Home or Self Care Walk-out Home documented in this encounter ED Notes * Doris Moreno MD - 05/11/2010 0408 EST Sign out receive him Dr. Almanza to check laboratory studies laboratory studies are negative urineshows glucose and ketones however it was hurting known or blood sugars 235 on peripheral blood patient has received fluids she is feeling much improved and will be discharged home with bronchitis * Ginna De Leon RN - 05/11/2010 0053 EST Pt left ED ambulatory c/ steady gait in NAD, a & o x3. Reports understanding of discharge instructions. * Kelly Rios - 05/10/2010 2330 EST Blood drawn via saline lock per protocol, tiger and purple tube(s) sent to lab per order. * Maj Almanza MD - 05/10/2010 2314 EST DOS: 05/10/2010 Chief Complaint Patient presents with ??? Hyperglycemia Pt reports 335 FS at 2100, just dx with DM type 2 after thanksgiving started on metformin. Pt reports BUSH and generally not feeling well The patient is a 25 y.o. female who presents today with Hyperglycemia HPI Comments: Pt states that she was diagnosed with diabetes 2 weeks ago, but her sugars are no better. She has been on metformin 500mg BID for 2 weeks, and her sugars have been a low of 140, and often in the high 200's... Today it was 176 in the morning and 335 one hour ago. She states that she called her doctors office and was referred to the [facility], but pt understood that they refused to see me as they needed to talk to her doctor first. Therefore, she came to [facility]. Pt notes recent nasal congestion, cough, and sorethroat. Her temp was 100.4 axillary on Tuesday. Shehas occasional diarrhea since beginning metformin She is on day 1 of normal mense. She is taking PO, and had shepherds pie before coming here. Pt states she has had intentional 56 lb weight loss, (cutting out soda), and now weights 300lbs., with height of 64 inches. Pt notes a 3 year history of headaches, occuring 4 times weekly, usually left sided, with nausea and sparklies in her left visual field. She saw a neurologist who diagnosed migraine, but A trial oftopamax did not work. Chart review: MRI brain 2008: left maxillary sinuses, hypoplastic sinus, normal brain. The history is provided by the patient. Hyperglycemia The current episode started more than 2 weeks ago. The problem occurs continuously. The problem hasnot changed since onset. The problem is moderate. Nothing relieves the symptoms. Nothing aggravatesthe symptoms. Associated symptoms include a fever, diarrhea, congestion, headaches, rhinorrhea, sore throat and cough. Pertinent negatives include no double vision, no abdominal pain and no rash. Shehas been eating and drinking normally. Urine output has been normal. There were sick contacts at home. Recently, medical care has been given by the PCP. Services received include medications given. Review of Systems Constitutional: Positive for fever. Negative for chills. HENT: Positive for congestion, sore throat and rhinorrhea. Negative for neck stiffness. Eyes: Negative for double vision and visual disturbance. Respiratory: Positive for cough. Negative for shortness of breath. Cardiovascular: Negative for chest pain. Gastrointestinal: Positive for diarrhea. Negative for abdominal pain. Genitourinary: Negative for dysuria and menstrual problem. Musculoskeletal: Negative for back pain. Skin: Negative for rash. Neurological: Positive for headaches. Psychiatric/Behavioral: Negative for confusion. All other systems reviewed and are negative. Past Medical History Diagnosis Date ??? Obesity, unspecified ??? Migraine NOS/not intrcbl ??? Diabetes mellitus Past Surgical History Procedure Date ??? Other surgical history tailbone (mostlikely pilonidal cyst) Allergies Allergen Reactions ??? Percocet (Oxycodone-acetaminophen) Swelling of throat ??? Advil (Ibuprofen) Hives History Substance Use Topics ??? Tobacco Use: Not on file ??? Alcohol Use: History reviewed. No pertinent family history. Vital Signs Temp: 36 ??C (96.8 ??F) Temp src: Tympanic Pulse: 114 Resp: 18 SpO2: 99 % BP: 149/103 mmHg BP Device: BP Machine O2 Device: None (Room air) Physical Exam Nursing note and vitals reviewed. Constitutional: She is oriented to person, place, and time. She appears well-developed. Elevated BMI HENT: Head: Normocephalic and atraumatic. Right Ear: External ear normal. Left Ear: External ear normal. Nose: Nose normal. Mild left frontal sinus tenderness. OP erythema. TM right bulla Eyes: Pupils are equal, round, and reactive to light. Right eye exhibits no discharge. Left eye exhibits no discharge. Neck: Normal range of motion. Neck supple. No tracheal deviation present. Cardiovascular: Normal rate, regular rhythm and normal heart sounds. Pulmonary/Chest: Effort normal and breath sounds normal. No respiratory distress. Abdominal: Soft. No tenderness. Musculoskeletal: Normal range of motion. She exhibits no edema. Neurological: She is alert and oriented to person, place, and time. She has normal strength. No sensory deficit. Skin: No rash noted. Psychiatric: She has a normal mood and affect. Radiology orders: None Procedures ED Course: Stable in ED. Spoke with Dr. Mera of endocrine, pt to call clinic for new diabetes expedited appt this week. Care endorsed with labs/reeval after fluids pending. IVF in progress. Discharge Prescriptions New Prescriptions AZITHROMYCIN (ZITHROMAX Z-GEORGINA) 250 MG TABLET Take 1 Tab by mouth SEE ADMIN INSTRUCTIONS for 5 days.Take 2 tabs today and 1 tab on days 2 through 5 MDM Number of Diagnoses or Management Options Bronchitis: Bullous myringitis: Headache: Hyperglycemia: Diagnosis management comments: 4 1. Hyperglycemia (790.29N) 2. 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 Bronchitis (490H) 4. Headache (784.0) PCP: Madeline Caputo 05/10/2010 23:14 documented in this encounter Miscellaneous Notes * Scanned Note-Null - Inpatient, Physician - 05/10/2010 0000 EST documented in this encounter Plan of Treatment Upcoming Encounters Date Type Department Care Team (Late st Contact Info) Description 02/21/2024 9:45 EDT Office Visit [facility] [place] [address] Carrington Calderon MD [address] [phone] 02/27/2024 8:30 EDT Telemedicine [facility] Sleep Program - [place] [address] [place] [phone] Rn, Sleep 02/29/2024 10:30 EDT Appointment [facility] Radiology Nuclear Medicine and PET [address] [address] 02/29/2024 14:30 EDT Appointment [facility] Radiology Nuclear Medicine and PET [address] [address] 03/01/2024 8:00 EDT Appointment [facility] Radiology Nuclear Medicine and PET [address] [address] 03/01/2024 9:30 EDT Appointment [facility] Radiology Nuclear Medicine and PET [address] [address] documented as of this encounter Procedures Procedure Name Priority Date/Time Associated Diagnosis Comments POCT TEST, VISUAL READ STAT 05/11/2010 0:37 EST POCT URINE DIPSTICK, CLINITEK STAT 05/11/2010 0:36 EST SCREENING GLUCOSE STAT 05/10/2010 22: 53 EST ELEVATED GLUCOSE Routine 05/10/2010 22:5 3 EST COMPLETE BLOOD COUNT AND DIFFERENTIAL STAT 05/10/2010 22:53 EST BUN STAT 05/10/2010 22:53 EST CREATININE STAT 05/10/2010 22:53 EST ELECTROLYTES STAT 05/10/2010 22:53 EST documented in this encounter Results * POCT URINE TEST (05/11/2010 0:37 EST) Test, Urine, POC Negative Pending, Negative POINT OF CARE Control Line Present Yes POINT OF CARE Background Clear? Yes POINT OF CARE Urine specimen (specimen) 05/11/2010 0:37 EST Maj Archie MARTÍNEZ POINT OF CARE TEST O RDERABLES Performing Organization Address [facility] Co de Phone Number POINT OF CARE * (ABNORMAL) POCT URINE DIPSTICK (05/11/2010 0:36 EST) Color, UA POINT OF CARE Clarity, UA POINT OF CARE Glucose, UA 2+(A) Negative mg/dL POINT OF CARE Bilirubin, UA Negative Negative POINT OF CARE Ketones, UA 1+(A) Negative mg/dL POINT OF CARE Spec Grav, UA 1.020 1.010, 1.015, 1.020, 1.025 POINT OF CARE Blood, UA 3+(A) Negative POINT OF CARE pH, UA 6.5 4.6 - 8.0 POINT OF CARE Protein, UA Negative Negative mg/dL POINT OF CARE Urobilinogen, UA 0.2 0.2 - 1.0 E.U./dL POINT OF CARE Nitrite, UA Negative Negative POINT OF CARE Leuk Esterase Trace(A) Negative POINT OF CARE Comment POINT OF CARE Urine specimen (specimen) 05/11/2010 0:36 EST Maj Archie MARTÍNEZ POINT OF CARE TEST O RDERABLES Performing Organization Address [facility] de Phone Number POINT OF CARE * ELEVATED GLUCOSE (05/10/2010 22:53 EST) Elevated Glucose Screening glucose greater than 180 mg/dl. Please order follow up hemoglobin A1c. [facility] 05/10/2010 22:5 3 EST 05/10/2010 23:36 EST Maj Archie MARTÍNEZ CHEMISTRY & BLOOD GA S ORDERABLES Performing Organization Address City/[facility]/ZIP Co de Phone Number [facility] [address] [place] [address] * (ABNORMAL) HEMAGRAM AND DIFFERENTIAL (05/10/2010 22:53 EST) Pathologist [facility] WBC 11.56 4.0 - 12.4 K/cmm [facility] RBC 4.39 3.86 - 5.04 M/cmm [facility] Hemoglobin 13.6 11.6 - 15.2 gm/dl [facility] HCT 38.5 34.9 - 44.4 % [facility] MCV 88 81 - 98 fl [facility] MCH 30.9 26.7 - 33.3 pg [facility] MCHC 35.3 32.1 - 35.9 gm/dl [facility] PLT 352(H) 141 - 320 K/cmm [facility] RDW-CV 12.8 11.7 - 14.6 % [facility] % Neutrophils 57.0 45.5 - 79.7 % [facility] % Lymphocytes 33.2 15.0 - 46.8 % [facility] % Monocytes 7.4 1.8 - 12.0 % [facility] % Eosinophils 1.9 0.6 - 6.9 % [facility] % Basophils 0.5 0.2 - 1.4 % [facility] ABS Neutrophils 6.59 2.20 - 8.85 K/cmm [facility] ABS Lymphs 3.83(H) 1.09 - 3.30 K/cmm [facility] ABS Monocytes 0.86(H) 0.1 - 0.8 K/cmm [facility] ABS Eosinophils 0.22 0.03 - 0.61 K/cmm [facility] ABS Basophils 0.06 0.01 - 0.11 K/cmm [facility] Type of Diff: Automated [facility] Blood specimen (specimen) 05/10/2010 22:53 EST 05/10/2010 23:36 EST Maj Archie MARTÍNEZ PACKAGES & DNA PROBE ORDERABLES [facility] [address] [place] [address] * (ABNORMAL) SCREENING GLUCOSE (05/10/2010 22:53 EST) Pathologist [facility] Glucose, Screening 238(H) 70 - 100 mg/dl [facility] Blood specimen (specimen) 05/10/2010 22:53 EST 05/10/2010 23:36 EST Maj Archie MARTÍNEZ CHEMISTRY & BLOOD GA S ORDERABLES Performing Organization Address [facility] de Phone Number [facility] [address] [place] [address] * CREATININE (05/10/2010 22:53 EST) Creatinine 0.80 0.7 - 1.5 mg/dl [facility] GFR, Calculated >60 ml/min/1.7 3m2 [facility] Blood specimen (specimen) 05/10/2010 22:53 EST 05/10/2010 23:36 EST Maj Archie MARTÍNEZ CHEMISTRY & BLOOD GA S ORDERABLES Performing Organization Address [facility] Phone Number [facility] [address] [place] [address] * BUN (05/10/2010 22:53 EST) BUN 12 10 - 26 mg/dl [facility] Blood specimen (specimen) 05/10/2010 22:53 EST 05/10/2010 23:36 EST Maj Archie MARTÍNEZ CHEMISTRY & BLOOD GA S ORDERABLES Performing Organization Address [facility] Phone Number [facility] [address] [place] [address] * ELECTROLYTES (05/10/2010 22:53 EST) Sodium 138 136 - 145 mEq/L [facility] Potassium 4.4 3.5 - 5.0 mEq/L [facility] Chloride 98 96 - 110 mEq/L [facility] CO2 29 24 - 32 mEq/L [facility] Blood specimen (specimen) 05/10/2010 22:53 EST 05/10/2010 23:36 EST Maj Archie MARTÍNEZ CHEMISTRY & BLOOD GA S ORDERABLES [facility] [address] [place] [address] documented in this encounter Visit Diagnoses Diagnosis Hyperglycemia Other abnormal glucose Bullous myringitis Bronchitis Bronchitis, not specified as acute or chronic Headache(784.0) Headache documented in this encounter Administered Medications Inactive Administered Medications - up to 3 most recent administrations Medication Order MAR Action Action Date Dose Rate Site azithromycin (ZITHROMAX) tablet 500 mg 500 mg, oral, NOW X1, 1 dose, On 05/10/10 at 2330, STAT Given 05/11/2010 0:45 EST 500 mg sodium chloride 0.9 % 1,000 mL BOLUS 1,000 mL, intravenous, Once (Without Time Specified), 1 dose, Starting on 05/10/10 at 2315, Until 05/10/10 at 2315, STAT Given 05/10/2010 23:15 EST 1,000 mL documented in this encounter Discontinued Medications Medication Sig Discontinue Reason Start Date End Da te topiramate (TOPAMAX) 25 mg tablet Take 25 mg by mouth 2 times daily. Therapy completed 05/10/2010 documented as of this encounter Historical Medications * This list may reflect changes made after this encounter. Medication Sig Dispensed Refills Start Date End Date metformin (GLUCOPHAGE) 500 mg tablet Take 500 mg by mouth 2 times daily. 05/10/2010 01/01/2015 added in this encounter Active and Recently Administered Medications Times are shown in EST. Scheduled Medication Order 05/09/2010 05/10/2010 05/11/2010 azithromycin (ZITHROMAX) tablet 500 mg (COMPLETED) 500 mg, oral, NOW X1, 1 dose, On 05/10/10 at 2330, STAT 0045 (Given - Provid er: Ginna De Leon RN) sodium chloride 0.9 % 1,000 mL BOLUS (COMPLETED) 1,000 mL, intravenous, Once (Without Time Specified), 1 dose, Starting on 05/10/10 at 2315, Until 05/10/10 at 2315, STAT 2315 (Given - Provider: Ginna De Leon RN) documented in this encounter Orders Medications Ordered That Stan ht Not Have Been Administered Count Last Ordered Date First Ordered Date sodium chloride 0.9 % (NS) infusion 1 05/10 documented in this encounter Care Teams Rippler Relationship Specialty Start Date End Date Bondesen, Madeline M, PA [address] [place] [address] PCP - General 05/10/10 12/31/14 documented as of this encounter
--- OUTSIDE RECORDS SUMMARY | 2023-12-16 00:47 | XMS_ITS | Encounter Summary ---
Author Organization [facility] Address [address] [place] [address] Care Team Providers Care Hemodialysis Technician Name Role Phone None, Provider Primary Care Provider Unavailabl e Encounter Details Date Type Department Care Team (Late st Contact Info) Description 07/23/2015 10:49 EST - 07/23/2015 10:50 EST Hospital Encounter [address] [address] Robyn Bautista MD [address] [place] [phone] Discharge Disposition: Home or Self Care Social [...] as of this encounter Discharge Diagnoses Diagnosis N91.2 Amenorrhea, unspecified-N91.2[ICD-10-CM] documented in this encounter Medications at Time [...] Visit [facility] Adult Primary Care - [address] [address] Carrington Calderon MD [address] [phone] 02/27/2024 8:30 EDT Telemedicine [facility] Sleep Program - [address] [address] Rn, Sleep 02/29/2024 10:30 EDT Appointment [facility] Radiology Nuclear Medicine and PET [address] [phone] 02/29/2024 14:30 EDT Appointment [facility] Radiology Nuclear Medicine and PET [address] [address] 03/01/2024 8:00 EDT Appointment [facility] Radiology Nuclear Medicine and PET [address] [phone] 03/01/2024 9:30 EDT Appointment [facility] Radiology Nuclear Medicine and PET [address] [phone] documented as of this encounter Visit Diagnoses Not on filedocumented in this encounter Care Teams Hemodialysis Technician Relationship Specialty Start Date End Date None, Provider PCP - General 01/01/15 08/27/15 documented as of this encounter
--- OUTSIDE RECORDS SUMMARY | 2023-12-16 00:47 | XMS_ITS | Encounter Summary ---
Author Organization [facility] Address [address] [place] [address] Care Team Providers Care Armature And Rotor Winder Name Role Phone Nimisha Clifton FOREST ECONOMIST Primary Care Provider [phone] Reason for Visit * Reason Comments New Patient Visit Otalgia pain off and on for years but hurts consistantly since Tuesday Encounter Details Date Type Department Care Team (Late st Contact Info) Description 09/03/2015 11:00 EDT Office Visit [facility] Adult Primary Care - [address] [phone] Nimisha Clifton NP [address] [phone] Type 2 diabetes mellitus without complication (CMS-HCC) (HCC-CMS) (Primary Dx); Tachycardia; Depression, unspecified depression type; Anxiety and depression Social History Tobacco Use Types Packs/Day Years Used Date Smoking Tobacco: Every Day Cigarettes Tobacco Cessation:Ready to Q uit: Yes; Counseling Given: No Alcohol Use Standard Drinks/Week Comments No 0 (1 standard drink = 0.6 oz pur e alcohol) very rare Sex and Gender Information Value Date Recorded Sex Assigned at Not on file Gender Identity Female 06/18/2019 8:54 EST Sexual Orientation Not on file documented as of this encounter Last Filed Vital Signs Vital Sign Reading Time Taken Comments Blood Pressure 134/86 09/03/2015 1059 EDT Pulse 110 09/03/2015 1059 EDT Temperature 36.8 ??C (98.3 ??F) 09/03/2015 1059 EDT Respiratory Rate 20 09/03/2015 1059 EDT Oxygen Saturation - - Inhaled Oxygen Concentration - - Weight 109.8 kg (242 lb) 09/03/2015 1059 EDT Height 163.8 cm (5' 4.5) 09/03/2015 1059 EDT Body Mass Index 40.9 09/03/2015 1059 EDT documented in this encounter Discharge Diagnoses Diagnosis E11.9 Type 2 diabetes mellitus without complications-E11.9[ICD-10-CM] R00.0 Tachycardia, unspecified-R00.0[ICD-10-CM] F32.9 Major depressive disorder, single episode, unspecified-F32.9[ICD-10-CM] documented in this encounter Progress Notes * Nimisha Clifton NP - 09/03/2015 1251 EDT Subjective: Patient ID: Cristy Montelongo is an 30 y.o. female. Chief Complaint Patient presents with ??? New Patient Visit ??? Otalgia pain off and on for years but hurts consistantly since Tuesday HPI Stella presents today to establish care. She has not had a regular primary care provider recently, [place]oved around the [place] over the past years. Originally from the [facility]. Presently lives [facility] with her boyfriend/significant other and his 4-year-old daughter part of the time. 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 Smoking some but in the process of quitting and cutting back. Alcohol infrequently, occasional marijuana use particularly when she is feeling stressed to help with depression and anxiety symptoms. No other drug use. Shares with me that depression has been a factor since teen years. At one point in approximately 2012 she was treated for depression with citalopram and develop suicidal ideation-she went to [place] for a short stay for withdrawal from the medication and until her depression/SI symptoms improved. She has worked with a counselor many years ago and is interested in working again with counseling, feels this would be helpful. No present suicidal ideation. She has not been on any other medications for symptoms. She does find that marijuana occasionally helps with more severe depression and anxiety. Has good support from her partner. Unfortunately she just experienced a second miscarriage prince ier this week, had a prior miscarriage in February 2015. History of migraine with aura based on her description-always experiences a shooting star sensationof lights in the minutes before onset of headache pain. Migraines first started in her teen years, occur a couple of times a month. She has had an anaphylactic reaction to ibuprofen but has taken Aleve and tolerated this okay but just does not work for her. She tends to use acetaminophen when necessary. She is not sure of her last immunizations, we will try to track down this information. Reports being told in high school that she had arthritis in her back. Her mother has a history of rheumatoid arthritis. Lives has a history of extreme obesity, reports her weight was over 500 pounds when she was 25 years old. She was diagnosed with diabetes at that time and has successfully brought her weight down considerably with lifestyle changes, reduce calories and increased exercise. When she was diagnosed with diabetes she was initially on insulin glargine, recalls taking 80 units at one time but was able to stop insulin altogether. Has not used it in the past few years until this past month when her ELECTRONIC EQUIPMENT TRADES WORKER placed her back on it in early . She is currently taking 30 units daily. She does not know the results of her most recent labs related to diabetes. Family history-rheumatoid arthritis in her mother, diabetes in maternal grandfather and aunt. Her sister has history of congenital heart disease hole in her heart . Reports her paternal side familyhistory is unknown. She follows with Dr. López/affiliates in [employer] for her ELECTRONIC EQUIPMENT TRADES WORKER care. She had a D&C done earlier this week for spontaneous miscarriage. She still having light bleeding now, no longer pain or cramping. Also reports chronic left ear pain, multiple infections over the years. Reports onset of pain againlast night, aching throbbing keeping her awake. She does clench her teeth. Has never been diagnosedwith TMJ dysfunction. Stress has been elevated of course this week with all that is going on. Willing to go for labs following today's visit. Patient Active Problem List Diagnosis ??? Obesity ??? Migraine with aura and without status migrainosus, not intractable ??? Depression ??? Type 2 diabetes mellitus Outpatient Prescriptions Marked as Taking for the 09/03/15 encounter (Office Visit) with Nimisha Clifton NP Medication Sig Note Dispense Refill ??? ferrous sulfate 324 mg (65 mg iron) tablet,delayed release (DR/EC) Take 324 mg by mouth daily with breakfast. ??? insulin glargine (LANTUS SOLOSTAR) 100 unit/mL (3 mL) injection pen Inject into the skin at bedtime. 09/03/2015: 30 units of Lantus ??? oxyCODONE-acetaminophen (PERCOCET) 5-325 mg per tablet Take 1-2 Tabs by mouth every 6 hours as needed for Pain. Earliest Fill Date: 08/31/15 Daily Max: 8 Tabs 15 Tab 0 ??? PROGESTERONE MISC by misc (non-drug; combo route) route. Review of Systems Constitutional: Negative for fever and weight loss. HENT: Positive for ear pain. Respiratory: Negative. Cardiovascular: Negative. Gastrointestinal: Negative. Genitourinary: Negative. Musculoskeletal: Chronic back pain Neurological: Positive for headaches. Psychiatric/Behavioral: Positive for depression. Negative for suicidal ideas. Difficult emotional week with SAB - See HPI Objective: BP 134/86 mmHg Pulse 110 Temp(Src) 36.8 ??C (98.3 ??F) (Tympanic) Resp 20 Ht 163.8 cm (64.5) Wt 109.77 kg (242 lb) BMI 40.91 kg/m2 LMP 06/17/2015 ? Unknown Physical Exam Constitutional: No distress. HENT: Right Ear: External ear normal. Left Ear: External ear normal. Nose: Nose normal. Mouth/Throat: Oropharynx is clear and moist. No oropharyngeal exudate. Left ear canal clear, no erythema. Scarring noted of left tm. Neck: No thyromegaly present. Cardiovascular: Normal rate, regular rhythm, normal heart sounds and intact distal pulses. Pulmonary/Chest: Effort normal and breath sounds normal. Abdominal: Soft. She exhibits no mass. There is no tenderness. No HSM Lymphadenopathy: She has no cervical adenopathy. Skin: Skin is warm and dry. Psychiatric: She has a normal mood and affect. Vitals reviewed. Assessment / Plan: 30 yr old woman npv to establish care and f/u on chronic health problems including dm Labs today, will follow with her with results. F/u one month Increased stress, hx of depression, recent SAB - supported counseling. F/u sooner prn. Chronic left ear pain - no evidence of acute OM. ?TMJ. Encouraged warmth, avoid hard chewing. Tachycardia - check labs, f/u one month Cristy was seen today for new patient visit and otalgia. Diagnoses and all orders for this visit: Type 2 diabetes mellitus without complication Orders: - Comprehensive Metabolic Panel (CMP); Future - Hemoglobin A1c; Future Tachycardia Orders: - Thyroid [place]; Future Depression, unspecified depression type Orders: - Thyroid [place]; Future Other orders - insulin glargine (LANTUS SOLOSTAR) 100 unit/mL (3 mL) injection pen; Inject into the skin at bedtime. - ferrous sulfate 324 mg (65 mg iron) tablet,delayed release (DR/EC); Take 324 mg by mouth daily with breakfast. Nimisha Clifton NP 09/03/2015 12:51 documented in this encounter Plan of Treatment Upcoming Encounters Date Type Department Care Team (Late st Contact Info) Description 02/21/2024 9:45 EDT Office Visit [facility] Adult Primary Care - [address] [phone] Carrington Calderon MD [address] [place] [phone] 02/27/2024 8:30 EDT Telemedicine [facility] Sleep Program - [address] [phone] Rn, Sleep 02/29/2024 10:30 EDT Appointment [facility] Radiology Nuclear Medicine and PET - [address] [phone] 02/29/2024 14:30 EDT Appointment [facility] Radiology Nuclear Medicine and PET - [address] [id number] 03/01/2024 8:00 EDT Appointment [facility] Radiology Nuclear Medicine and PET [address] [id number] 03/01/2024 9:30 EDT Appointment [facility] Radiology Nuclear Medicine and PET - [facility] [address] [place] [address] documented as of this encounter Results * (ABNORMAL) THYROID CASCADE (09/03/2015 12:33 EDT) TSH 0.48(L) 0.55 - 4.78 uIU/ml 09/03/2015 18:19 EDT [facility] Comment: TSH cascade is not recommended for patients in which pituitary or hypothalamic disorders are suspected. Blood specimen (specimen) BLOOD SPECIMEN / Unknown 09/03/2015 12:33 EDT 09/03/2015 13:37 EDT Nimisha Clifton NP CHEMISTRY & BLOOD GAS ORDERABLES Performing Organization Address [facility] Co de Phone Number [facility] [address] [place] [phone] * HEMOGLOBIN A1C (09/03/2015 12:33 EDT) Hemoglobin A1C 8.8 % 09/03/2015 14:56 EDT [facility] Comment: Reference Range: <5.7% Normal 5.7-6.4% Increased risk for diabetes =>6.5% Diagnostic for diabetes (if confirmed) The A1c goal for non adults in general is <7%. The A1c goal for selected patients may be significantly lower than 7% if this can be achieved without significant hypoglycemia or other adverse effects of treatment. Est Avg Glucose 206 mg/dl 6 14:56 EDT [facility] Comment: eAG represents the A1c result expressed as average glucose in mg/dl. Blood specimen (specimen) BLOOD SPECIMEN / Unknown 09/03/2015 12:33 EDT 09/03/2015 13:37 EDT Nimisha Clifton NP CHEMISTRY & BLOOD GAS ORDERABLES Performing Organization Address [facility] Co de Phone Number [facility] [address] [place] [address] * (ABNORMAL) COMPREHENSIVE METABOLIC PANEL (CMP) (09/03/2015 12:33 [facility]) Potassium 4.1 3.5 - 5.0 mEq/L 09/03/2015 14:15 [facility] Sodium 141 136 - 145 mEq/L 09/03/2015 14:15 [facility] Chloride 101 96 - 110 mEq/L 09/03/2015 14:15 [facility] CO2 29 24 - 32 mEq/L 09/03/2015 14:15 [facility] Total Alkaline Phosphatase 84 38 - 126 U/L 09/03/2015 14:15 [facility] Bilirubin, Total <0.5 <1.4 mg/dl 09/03/19 16 14:15 [facility] AST 19 15 - 46 U/L 09/03/2015 14:15 [facility] ALT 33 <53 U/L 09/03/2015 14:15 [facility] Albumin 3.9 3.4 - 4.9 g/dl 09/03/2015 14:15 [facility] Total Protein 6.6 6.3 - 8.2 g/dl 09/03/2015 14:15 [facility] Creatinine 0.48(L) 0.52 - 1.04 mg/dl 09/03/2015 14:15 [facility] GFR, Calculated 132 >60 ml/min/1.7 3m2 09/03/2015 14:15 [facility] Comment: eGFR calculated using CKD-EPI equation for non Americans. Multiply eGFR by 1.16 for Americans. BUN 11 10 - 26 mg/dl 09/03/2015 14:15 [facility] Calcium 9.8 8.5 - 10.5 mg/dl 09/03/2015 14:15 [facility] Calculated Calcium 10.3 8.5 - 10.5 mg/dl 09/03/2015 14:15 [facility] Glucose, Serum 205(H) 70 - 100 mg/dl 09/03/2015 14:15 [facility] Fasting? No 09/03/2015 12:23 EDT [facility] Blood specimen (specimen) BLOOD SPECIMEN / Unknown 09/03/2015 12:33 EDT 09/03/2015 13:37 EDT Nimisha Clifton NP CHEMISTRY & BLOOD GAS ORDERABLES [facility] [address] [place] [address] documented in this encounter Visit Diagnoses Diagnosis Type 2 diabetes mellitus without complication ([facility]-CMS)- Primary Type II or unspecified type diabetes mellitus without mention of complication, not stated as uncontrolled Tachycardia Tachycardia, unspecified Depression, unspecified depression type Anxiety and depression Dysthymic disorder documented in this encounter Historical Medications * This list may reflect changes made after this encounter. Medication Sig Dispensed Refills Start Date End Date ferrous sulfate 324 mg (65 mg iron) tablet,delayed release (DR/EC) Take 324 mg by mouth daily with breakfast. 03/08/2016 insulin glargine (LANTUS SOLOSTAR) 100 unit/mL (3 mL) injection pen Inject into the skin at bedtime. 03/08/2016 added in this encounter Care Teams Armature And Rotor Winder Relationship Specialty Start Date End Date Nimisha Clifton NP 1 [facility] Level [address] [place] [phone] PCP - General 08/28/15 03/07/16 documented as of this encounter
--- OUTSIDE RECORDS SUMMARY | 2023-12-16 00:47 | XMS_ITS | Encounter Summary ---
Author Organization [facility] Address [address] [place] [address] Care Team Providers Care Automatic Pilot Mechanic Name Role Phone Nimisha Clifton LIABILITY ANALYST Primary Care Provider [phone] Reason for Visit * Reason Onset Date Comments No Show 10/03/2015 Encounter Details Date Type Department Care Team (Late st Contact Info) Description 10/03/2015 Telephone [facility] Adult Primary Care - [place] [address] [place], [place] [phone] Nimisha Clifton, LIABILITY ANALYST 1 [facility] Level [address] [place] [phone] No Show Social History Tobacco [...] encounter Miscellaneous Notes * Telephone Encounter - Jaylene Toscano - 10/06/2015 0917 EDT 1st no show. Message left for the patient to call back if she would like to reschedule. * Telephone Encounter - Jaylene Toscano - 10/03/2015 1434 EDT Patient no showed an appointment today with Nimisha Clifton NP. documented in this encounter Plan of Treatment Upcoming Encounters Date Type Department Care Team (Late st Contact Info) Description 02/21/2024 9:45 EDT Office Visit [facility] Adult Primary Care - [address] [phone] Carrington Calderon MD [address] [place] [phone] 02/27/2024 8:30 EDT Telemedicine [facility] Sleep Program - [address] [phone] Rn, Sleep 02/29/2024 10:30 EDT Appointment [facility] Radiology Nuclear Medicine and PET [address] [id number] 02/29/2024 14:30 EDT Appointment [facility] Radiology Nuclear Medicine and PET [address] [id number] 03/01/2024 8:00 EDT Appointment [facility] Radiology Nuclear Medicine and PET [address] [phone] 03/01/2024 9:30 EDT Appointment [facility] Radiology Nuclear Medicine and PET [address] [phone] documented as of this encounter Visit Diagnoses Not on filedocumented in this encounter Care Teams Automatic Pilot Mechanic Relationship Specialty Start Date End Date Nimisha Clifton NP [address] [place] [phone] PCP - General 08/28/15 03/07/16 documented as of this encounter
--- OUTSIDE RECORDS SUMMARY | 2023-12-16 00:47 | XMS_ITS | Encounter Summary ---
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 w 6 d PRIOR ULTRASOUND DATING: Prior ultrasound is not currently available for comparison. CRL: 24 mm = 9 w 0 d IMPRESSION: The gestational sac is identified within the lower aspect of the uterus with a single pole measuring 24 mm with no cardiac identified. These findings are consistent with demise. DENTAL SCHEDULER consultation and followup with serial beta hCG is suggested. These findings were discussed with SONAL DAWSON ??by Dr. Zac Benjamin on 08/31/2015 5:30 PM. I have personally reviewed the images and the above interpretation and agree with the findings. Procedure Note Rose Mary Bay MD - 08/31/2015 RAD US OB LESS THAN 14 WKS TRANSVAGINAL 08/31/2015 5:10 PM SIGNS AND SYMPTOMS/COMMENTS: VAGINAL BLEEDING, , 10 weeks , pelvic pain, passing clotted material COMPARISON: Report ultrasound performed at an outpatient office during this is not currently available for comparison. Prior pelvic ultrasound from a previous from 02/24/15. TECHNIQUE: Grayscale, color Doppler, cine, and spectral tracing images of the pelvis were performed. MATERNAL STRUCTURES: RIGHT OVARY: Normal in size and appearance (measures 2.4 x1.6 x 2.2 cm). Normal arterial and venous waveforms are identified. LEFT OVARY: The left ovary was not visualized on this examination. There are no discrete left adnexal masses identified. OTHER ADNEXAL MASS: None. FREE FLUID: No significant free fluid identified within the pelvis.. UTERUS: Maternal uterus measures 8.7 x 5.1 x 5.4 cm. GESTATIONAL SAC WITHIN UTERUS: The gestational sac is identified within the lower portion of the uterus. YOLK SAC: Not identified POLE: There is a single pole identified within the gestational sac with no cardiac activity identified. CARDIAC ACTIVITY: None BIOMETRY/MEASUREMENTS: LMP: 06/12/15 = 10 w 6 d PRIOR ULTRASOUND DATING: Prior ultrasound is not currently available for comparison. CRL: 24 mm = 9 w 0 d IMPRESSION: The gestational sac is identified within the lower aspect of the uterus with a single pole measuring 24 mm with no cardiac identified. These findings are consistent with demise. DENTAL SCHEDULER consultation and followup with serial beta hCG is suggested. These findings were discussed with SONAL DAWSON by Dr. Zac Benjamin on 08/31/2015 5:30 PM. I have personally reviewed the images and the above interpretation and agree with the findings. Sonal Rand PA-C IM US ORDERABLES * TYPE AND SCREEN (08/31/2015 16:20 EDT) ABO B [facility] Rh Factor Negative [facility] Antibody Screen Positive [facility] Specimen Expires: 09/03/2015 @ 23:59 [facility] Blood specimen (specimen) 08/31/2015 16:20 EDT Felicita Espinal MD BLOOD BANK TESTS [facility] * (ABNORMAL) BASIC METABOLIC PANEL (08/31/2015 14:45 EDT) Sodium 140 136 - 145 mEq/L 08/31/2015 15:17 [facility] Potassium 4.1 3.5 - 5.0 mEq/L 08/31/2015 15:17 [facility] Chloride 106 96 - 110 mEq/L 08/31/2015 15:17 [facility] CO2 24 24 - 32 mEq/L 08/31/2015 15:17 [facility] BUN 9(L) 10 - 26 mg/dl 08/31/2015 15:17 [facility] Creatinine 0.41(L) 0.52 - 1.04 mg/dl 08/31/2015 15:17 [facility] GFR, Calculated 139 >60 ml/min/1.7 3m2 08/31/2015 15:17 [facility] Comment: eGFR calculated using CKD-EPI equation for non Americans. Multiply eGFR by 1.16 for Americans. Calcium 9.7 8.5 - 10.5 mg/dl 08/31/2015 15:17 [facility] Calculated Calcium 10.1 8.5 - 10.5 mg/dl 08/31/2015 15:17 [facility] Glucose, Serum 199(H) 70 - 100 mg/dl 08/31/2015 15:17 [facility] Fasting? Unknown 08/31/2015 15:02 [facility] Blood specimen (specimen) BLOOD SPECIMEN / Unknown 08/31/2015 14:45 EDT 08/31/2015 15:02 EDT Sonal Rand PA-C CHEMISTRY & BLOOD G ORDERABLES [facility] [address] [place] [address] * (ABNORMAL) HEMAGRAM AND DIFFERENTIAL (08/31/2015 14:45 EDT) WBC 18.76(H) 4.0 - 12.4 K/cmm 08/31/2015 15:09 [facility] RBC 4.70 3.86 - 5.04 M/cmm 08/31/2015 15:09 [facility] Hemoglobin 14.3 11.6 - 15.2 gm/dl 08/31/2015 15:09 [facility] HCT 40.4 34.9 - 44.4 % 08/31/2015 15:09 [facility] MCV 86 81 - 98 fl 08/31/2015 15:09 [facility] MCH 30.4 26.7 - 33.3 pg 08/31/2015 15:09 [facility] MCHC 35.4 32.1 - 35.9 gm/dl 08/31/2015 15:09 [facility] RDW-CV 12.2 11.7 - 14.6 % 08/31/2015 15:09 [facility] RDW-SD 38.8 37.6 - 50.3 fl 08/31/2015 15:09 [facility] PLT 421(H) 141 - 377 K/cmm 08/31/2015 15:09 [facility] MPV 9.5 9.5 - 12.7 fl 08/31/2015 15:09 [facility] % Neutrophils 70.6 % 08/31/2015 15:09 [facility] % Lymphocytes 19.8 % 08/31/2015 15:09 [facility] % Monocytes 6.1 % 08/31/2015 15:09 [facility] % Eosinophils 2.6 % 08/31/2015 15:09 [facility] % Basophils 0.4 % 08/31/2015 15:09 [facility] % Immature Grans 0.5 % 08/31/2015 15:09 [facility] ABS Neutrophils 13.26(H) 2.20 - 8.85 K/cmm 08/31/2015 15:09 [facility] ABS Lymphs 3.71(H) 1.09 - 3.30 K/cmm 08/31/2015 15:09 EDT [facility] ABS Monocytes 1.14(H) 0.1 - 0.8 K/cm 08/31/2015 15:09 EDT [facility] ABS Eosinophils 0.48 0.03 - 0.61 K/[facility] 08/31/2015 15:09 EDT [facility] ABS Basophils 0.08 0.01 - 0.11 K/cm 08/31/2015 15:09 T [facility] ABS Immature Grans 0.09(H) 0 - 0.06 K/[facility] 08/31/2015 15:09 T [facility] Type of Diff: Automated 08/31/2015 15:09 [facility] Blood specimen (specimen) BLOOD SPECIMEN / Unknown 08/31/2015 14:45 EDT 08/31/2015 15:02 EDT Sonal Rand PA-C PACKAGES & DNA PROB E ORDERABLES [facility] [address] [place] [address] documented in this encounter Visit Diagnoses Diagnosis Miscarriage- Primary Unspecified spontaneous without mention of complication documented in this encounter Administered Medications Inactive Administered Medications - up to 3 most recent administrations Medication Order MAR Action Action Date Dose Rate Site HYDROmorphone (PF) (DILAUDID) 1 mg/mL injection 1 mg 1 mg, intravenous, NOW X1, 1 dose, On 08/31/15 at 1445, STAT Given 08/31/2015 14:57 EDT 1 mg HYDROmorphone (PF) (DILAUDID) 1 mg/mL injection 1 mg 1 mg, intravenous, NOW X1, 1 dose, On 08/31/15 at 1530, STAT Given 08/31/2015 15:32 EDT 1 mg HYDROmorphone (PF) (DILAUDID) 1 mg/mL injection 1 mg 1 mg, intravenous, NOW X1, 1 dose, On 08/31/15 at 1615, STAT Given 08/31/2015 16:12 EDT 1 mg ketAMINE (KETALAR) 10 mg/mL IV injection 1 dose, Starting on 08/31/15 at 1829, Until 08/31/15 at 1931 ketAMINE (KETALAR) IV injection 97.5 mg 97.5 mg (1 mg/kg ? 97.5 kg), intravenous, NOW X1, 1 dose, On 08/31/15 at 1945, STAT Given 08/31/2015 19:31 EDT 200 mg ondansetron (PF) (ZOFRAN) 4 mg/2 mL injection 1 dose, Starting on 08/31/15 at 1909, Until 08/31/15 at 1922 ondansetron (PF) (ZOFRAN) injection 4 mg 4 mg, intravenous, NOW X1, 1 dose, On 08/31/15 at 1445, STAT Given 08/31/2015 14:57 EDT 4 mg ondansetron (PF) (ZOFRAN) injection 4 mg 4 mg, intravenous, NOW X1, 1 dose, On 08/31/15 at 1945, STAT Given 08/31/2015 19:22 EDT 4 mg Oxycodone w APAP?? 5- 325 mg Tab STARTER PACK 1 Package, oral, NOW X1, 1 dose, On 08/31/15 at 2030, STAT Given 08/31/2015 20:51 EDT 1 Package prochlorperazine edisylate (COMPAZINE) 10 mg/2 mL (5 mg/mL) injection 1 dose, Starting on 08/31/15 at 1920, Until 08/31/15 at 1925 prochlorperazine edisylate (COMPAZINE) injection 10 mg 10 mg, intravenous, NOW X1, 1 dose, On 08/31/15 at 1930, STAT Given 08/31/2015 19:25 EDT 10 mg sodium chloride 0.9 % BOLUS 1,000 mL 1,000 mL, intravenous, NOW X1, 1 dose, On 08/31/15 at 1445, STAT New Bag 08/31/2015 14:57 EDT 1,000 mL sodium chloride 0.9 % BOLUS 1,000 mL 1,000 mL, intravenous, NOW X1, 1 dose, On 08/31/15 at 1615, STAT New Bag 08/31/2015 16:12 EDT 1,000 mL documented in this encounter Historical Medications * This list may reflect changes made after this encounter. Medication Sig Dispensed Refills Start Date End Date PROGESTERONE MISC by misc (non-drug; combo route) route. 03/08/2016 added in this encounter Active and Recently Administered Medications Times are shown in EDT. Scheduled Medication Order 08/29/2015 08/30/2015 08/31/2015 HYDROmorphone (PF) (DILAUDID) 1 mg/mL injection 1 mg (COMPLETED) 1 mg, intravenous, NOW X1, 1 dose, On 08/31/15 at 1445, STAT 1457 (Given - Provid er: Homa Goldsmith RN) HYDROmorphone (PF) (DILAUDID) 1 mg/mL injection 1 mg (COMPLETED) 1 mg, intravenous, NOW X1, 1 dose, On 08/31/15 at 1530, STAT 1532 (Given - Provid er: Homa Goldsmith RN) HYDROmorphone (PF) (DILAUDID) 1 mg/mL injection 1 mg (COMPLETED) 1 mg, intravenous, NOW X1, 1 dose, On 08/31/15 at 1615, STAT 1612 (Given - Provid er: Nini Schultz RN) ketAMINE (KETALAR) IV injection 97.5 mg (COMPLETED) 97.5 mg (1 mg/kg ? 97.5 kg), intravenous, NOW X1, 1 dose, On 08/31/15 at 1945, STAT 1931 (Given - Provid er: Homa Goldsmith RN - Comment: Given in increments for sedation) ondansetron (PF) (ZOFRAN) injection 4 mg (COMPLETED) 4 mg, intravenous, NOW X1, 1 dose, On 08/31/15 at 1445, STAT 1457 (Given - Provid er: Homa Goldsmith RN) ondansetron (PF) (ZOFRAN) injection 4 mg (COMPLETED) 4 mg, intravenous, NOW X1, 1 dose, On 08/31/15 at 1945, STAT 1922 (Given - Provid er: Homa Goldsmith RN) Oxycodone w APAP?? 5- 325 mg Tab STARTER PACK (COMPLETED) 1 Package, oral, NOW X1, 1 dose, On 08/31/15 at 2030, STAT 2051 (Given - Provid er: Homa Goldsmith RN) prochlorperazine edisylate (COMPAZINE) injection 10 mg (COMPLETED) 10 mg, intravenous, NOW X1, 1 dose, On 08/31/15 at 1930, STAT 1925 (Given - Provid er: Homa Goldsmith, MARCELO) sodium chloride 0.9 % BOLUS 1,000 mL (COMPLETED) 1,000 mL, intravenous, NOW X1, 1 dose, On 08/31/15 at 1445, STAT 1457 (New Bag - Prov ider: Jah Phan)1936 (Completed - Provider: Homa Goldsmith RN) sodium chloride 0.9 % BOLUS 1,000 mL (COMPLETED) 1,000 mL, intravenous, NOW X1, 1 dose, On 08/31/15 at 1615, STAT 1612 (New Bag - Prov ider: Nini Schultz RN)1935 (Completed - Provider: Homa Goldsmith RN) documented in this encounter Orders Medications Ordered That Stan ht Not Have Been Administered Count Last Ordered Date First Ordered Date ketAMINE (KETALAR) 10 mg/mL IV injection 1 08/31/2015 propofol (DIPRIVAN) 10 mg/mL injection 1 Nursing Count Last Ordered Date First Orde red Date INSERT PERIPHERAL IV 1 08/31/2015 documented in this encounter Care Teams Claim Attorney Relationship Specialty Start Date End Date Nimisha Clifton NP 1 [facility] [address] [place] [id number] PCP - General 08/28/15 03/07/16 documented as of this encounter
--- OUTSIDE RECORDS SUMMARY | 2023-12-16 00:47 | XMS_ITS | Encounter Summary ---
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 with at least one small focus of vascularity within its anterior aspect, findings which are concerning for retained products of conception. Gynecologic evaluation is recommended. Dr. Cam discussed these findings with CHILO CARRILLO MD at the time of dictation. I have personally reviewed the images and the above interpretation and agree with the findings. Chilo Carrillo MD IMG US ORDERABLES * TYPE AND SCREEN (02/24/2015 17:30 EDT) ABO B [facility] Rh Factor Negative [facility] Antibody Screen Positive [facility] Specimen Expires: 02/27/2015 @ 23:59 [facility] Blood specimen (specimen) 02/24/2015 17:30 EDT Chilo Carrillo MD BLOOD BANK TESTS [facility] * ED/WICC ADD-ON (02/24/2015 17:30 EDT) Tests to be added TYPE AND SCREEN 02/24/2015 17:28 EDT [facility] Number for problems [id number] (ED) 02/24/2015 17:28 EDT [facility] TOPOGRAPHY UNKNOWN / Unknown 02/24/2015 17:30 EDT 02/24/2015 18:01 EDT Chilo Carrillo MD HEMATOLOGY & PF4 OR DERABLES Performing Organization Address City/[facility]/ZIP Co de Phone Number [facility] [address] [place] [address] * HOLD GREEN TOP (02/24/2015 16:00 EDT) Hold Green Top Hold for further testing. Specimen will be held for 5 days. 02/24/2015 16:18 EDT [facility] Blood specimen (specimen) BLOOD SPECIMEN / Unknown 02/24/2015 16:00 EDT 02/24/2015 16:07 EDT Sonal Bhupendra Mathistt PA-C LAB INFO SERVICE AN D SUPPORT & PHONE RESULT Performing Organization Address [facility] Co de Phone Number [facility] [address] [place] [address] * BLOOD BANK SPECIMEN HOLD (02/24/2015 16:00 EDT) Hold BB Spec will exp at 23:59, 3 days from collect date [facility] Blood specimen (specimen) 02/24/2015 16:00 EDT Sonal DAWSON-C BLOOD BANK TESTS Performing Organization Address [facility] Co de Phone Number [facility] * HOLD SST (02/24/2015 16:00 EDT) Hold SST Hold for further testing. Specimen will be held for 5 days. 02/24/2015 16:18 EDT [facility] Blood specimen (specimen) BLOOD SPECIMEN / Unknown 02/24/2015 16:00 EDT 02/24/2015 16:07 EDT Sonal Bhupendra Mathistt PA-C LAB INFO SERVICE AN D SUPPORT & PHONE RESULT Performing Organization Address [facility] Co de Phone Number [facility] [address] [place] [address] * HOLD BLUE TOP (02/24/2015 16:00 EDT) Hold Blue Top Sample for coagulation will be discarded after 4 hours 02/24/2015 16:20 [facility] Blood specimen (specimen) BLOOD SPECIMEN / Unknown 02/24/2015 16:00 EDT 02/24/2015 16:07 EDT Sonal Rand PA-C LAB INFO SERVICE AN D SUPPORT & PHONE RESULT Performing Organization Address City/State/[facility] Co de Phone Number [facility] [address] [place] [address] * (ABNORMAL) HEMAGRAM AND DIFFERENTIAL (02/24/2015 16:00 EDT) WBC 17.81(H) 4.0 - 12.4 K/cmm 02/24/2015 16:11 [facility] RBC 4.36 3.86 - 5.04 M/cmm 02/24/2015 16:11 [facility] Hemoglobin 13.6 11.6 - 15.2 gm/dl 02/24/2015 16:11 [facility] HCT 39.5 34.9 - 44.4 % 02/24/2015 16:11 [facility] MCV 91 81 - 98 fl 02/24/2015 16:11 [facility] MCH 31.1 26.7 - 33.3 pg 02/24/2015 16:11 [facility] MCHC 34.3 32.1 - 35.9 gm/dl 02/24/2015 16:11 [facility] RDW-CV 12.6 11.7 - 14.6 % 02/24/2015 16:11 [facility] RDW-SD 39.8 37.6 - 50.3 fl 02/24/2015 16:11 [facility] PLT 383(H) 141 - 320 K/cmm 02/24/2015 16:11 [facility] MPV 8.0 7.5 - 11.2 fl 02/24/2015 16:11 [facility] Neutrophils 68.0 45.5 - 79.7 % 02/24/2015 16:54 [facility] Lymphocytes 21.0 15.0 - 46.8 % 02/24/2015 16:54 [facility] % Atyp Lymphs 2.0 % 02/24/2015 16:54 [facility] Monocytes 6.0 1.8 - 12.0 % 02/24/2015 16:54 [facility] Eosinophils 2.0 0.6 - 6.9 % 02/24/2015 16:54 [facility] Basophils 1.0 0.2 - 1.4 % 02/24/2015 16:54 [facility] ABS Neutrophils 12.10(H) 2.20 - 8.85 K/cmm 02/24/2015 16:54 [facility] ABS Lymphs 3.74(H) 1.09 - 3.30 K/cmm 02/24/2015 16:54 [facility] ABS Atyp Lymphs 0.36 K/cmm 5 16:54 [facility] ABS Monocytes 1.07(H) 0.1 - 0.8 K/cmm 02/24/2015 16:54 [facility] ABS Eosinophils 0.36 0.03 - 0.61 K/cmm 02/24/2015 16:54 [facility] ABS Basophils 0.18(H) 0.01 - 0.11 K/cmm 02/24/2015 16:54 [facility] Vacuolization Present 02/24/2015 16:54 [facility] Type of Diff: Manual 02/24/2015 16:54 [facility] Blood specimen (specimen) BLOOD SPECIMEN / Unknown 02/24/2015 16:00 EDT 02/24/2015 16:07 EDT Sonal Rand PA-C PACKAGES & DNA PROB E ORDERABLES [facility] [address] [place] [address] * SURGICAL PATHOLOGY (02/24/2015 9:01 EDT) Pathology Report: SURGICAL PATHOLOGY REPORT Reports generated via electronic interface contain original data; however they are lacking the format of the original report. Caution should be taken when reading/interpret ing unformatted reports. Name: ? CRISTY MONTELONGO ? Accession #: ? [id number] ? : ? 1985 (Age: 29) ??F ? Collect Date: ? 02/24/2015 ? Location: ? ED ? Receive Date: ? 02/24/2015 ? Provider: SONAL DAWSON Copy to: ? Final Pathologic Diagnosis: INTRAUTERINE CONTENTS: - ??Hypersecretory endometrium with decidualized stroma, abundant blood, fibrin, acute inflammation, and detached squamous epithelial cells. - ??Negative for chorionic villi or tissue. - ??Specimen entirely submitted and deeper levels were examined. Document reviewed and electronically signed by: JUAN PABLO PRO MD Report ??Date: 03/03/2015 16:27 By the signature above, the attending physician certifies that he/she has personally conducted a gross and/or microscopic examination of the described specimens and rendered or confirmed the above diagnosis. Specimen(s) Received: Products of conception Clinical History: Not listed Gross Description: ? Received fresh labelled with proper patient identification (initials W, E) and products of conception is an aggregate of clotted blood and red-brown tissue fragments (3.5 x 3.0 x 2.5 cm). No villous tissue, gestational sac, or tissue is identified. Entirely submitted in blocks 1-17. Ana María Cruz 02/25/2015 11:33 AM End of Report [facility] 02/24/2015 9:01 EDT 02/24/2015 9:01 EDT Sonal Rand PA-C PATHOLOGY ORDERABLE S [facility] [address] [place] [address] documented in this encounter Visit Diagnoses Diagnosis Miscarriage- Primary Unspecified spontaneous without mention of complication documented in this encounter Administered Medications Inactive Administered Medications - up to 3 most recent administrations Medication Order MAR Action Action Date Dose Rate Site ceFAZolin (ANCEF) syringe 2 g 2 g, intravenous, Administer over 10 Minutes, PRE-OP ONCE, 1 dose, On Tue02/24/15 at 1945, Routine Given 02/24/2015 19:49 EDT 2 g HYDROmorphone (PF) (DILAUDID) 1 mg/mL injection 1 mg 1 mg, intravenous, NOW X1, 1 dose, On Tue02/24/15 at 1645, STAT Given 02/24/2015 16:33 EDT 1 mg HYDROmorphone (PF) (DILAUDID) 1 mg/mL injection 1 mg 1 mg, intravenous, NOW X1, 1 dose, On Tue02/24/15 at 1700, STAT Given 02/24/2015 16:51 EDT 1 mg HYDROmorphone (PF) (DILAUDID) 1 mg/mL injection 1 mg 1 mg, intravenous, NOW X1, 1 dose, On Tue02/24/15 at 1900, STAT Given 02/24/2015 18:50 EDT 1 mg HYDROmorphone (PF) (DILAUDID) 1 mg/mL injection 1 dose, Starting on Tue02/24/15 at 1610, Until Tue02/24/15 at 1633 ondansetron (PF) (ZOFRAN) 4 mg/2 mL injection 1 dose, Starting on Tue02/24/15 at 1610, Until Tue02/24/15 at 1633 ondansetron (PF) (ZOFRAN) injection 4 mg 4 mg, intravenous, NOW X1, 1 dose, On Tue02/24/15 at 1645, STAT Given 02/24/2015 16:33 EDT 4 mg sodium chloride 0.9 % (NS) infusion 100 mL/hr, intravenous, CONTINUOUS, Starting on Tue02/24/15 at 1600, Until Tue02/24/15 at 2258, STAT New Bag 02/24/2015 18:41 EDT 100 mL/hr 100 mL/hr New Bag 02/24/2015 16:04 EDT 100 mL/hr 100 mL/hr documented in this encounter Active and Recently Administered Medications Times are shown in EDT. Scheduled Medication Order 02/22/2015 02/23/2015 02/24/2015 ceFAZolin (ANCEF) syringe 2 g (COMPLETED) 2 g, intravenous, Administer over 10 Minutes, PRE-OP ONCE, 1 dose, On Tue02/24/15 at 1945, Routine 1949 (Given - Provid er: Carline Luna RN) HYDROmorphone (PF) (DILAUDID) 1 mg/mL injection 1 mg (COMPLETED) 1 mg, intravenous, NOW X1, 1 dose, On Tue02/24/15 at 1645, STAT 1633 (Given - Provid er: Doris Balderas RN) HYDROmorphone (PF) (DILAUDID) 1 mg/mL injection 1 mg (COMPLETED) 1 mg, intravenous, NOW X1, 1 dose, On Tue02/24/15 at 1700, STAT 1651 (Given - Provid er: Doris Balderas RN) HYDROmorphone (PF) (DILAUDID) 1 mg/mL injection 1 mg (COMPLETED) 1 mg, intravenous, NOW X1, 1 dose, On Tue02/24/15 at 1900, STAT 1850 (Given - Provid er: Doris Balderas RN) ondansetron (PF) (ZOFRAN) injection 4 mg (COMPLETED) 4 mg, intravenous, NOW X1, 1 dose, On Tue02/24/15 at 1645, STAT 1633 (Given - Provid er: Doris Balderas RN) Continuous Medication Order 02/22/2015 02/23/2015 02/24/2015 sodium chloride 0.9 % (NS) infusion (CANCELED) 100 mL/hr, intravenous, CONTINUOUS, Starting on Tue02/24/15 at 1600, Until Tue02/24/15 at 2258, STAT 1604 (New Bag - Prov ider: Doris Balderas RN)1841 (New Bag - Provider: Doris Balderas RN) documented in this encounter Orders Medications Ordered That Stan ht Not Have Been Administered Count Last Ordered Date First Ordered Date ceFAZolin (ANCEF) 1 gram injection 1 2014 HYDROmorphone (PF) (DILAUDID ) 1 mg/mL injection 1 02/24/2015 Nursing Count Last Ordered Date First Orde red Date INSERT PERIPHERAL IV 1 02/24/2015 SPECIMEN TO PATHOLOGY 1 02/24/2015 documented in this encounter Care Teams Forming Machine Operator Relationship Specialty Start Date End Date None, Provider PCP - General 01/01/15 08/27/15 documented as of this encounter
--- OUTSIDE RECORDS SUMMARY | 2023-12-16 00:47 | XMS_ITS | Encounter Summary ---
Author Organization Health system Address [address] [place] [address] Care Team Providers Care Dollyman Name Role Phone None, Provider Primary Care Provider Unavailabl e Encounter Details Date Type Department Care Team (Late st Contact Info) Description 02/11/2015 Results Only [facility]- [facility] [phone] Alaina Miranda [address] [phone] Social History Tobacco Use Types Packs/Day [...] [facility] Adult Primary Care - [address] [phone] Carrington Calderon MD [address] [phone] 02/27/2024 8:30 EDT Telemedicine [facility] Sleep Program - [address] [phone] Rn, Sleep 02/29/2024 10:30 EDT Appointment [facility] Radiology Nuclear Medicine and PET - [address] [address] 02/29/2024 14:30 EDT Appointment [facility] Radiology Nuclear Medicine and PET - [address] [address] 03/01/2024 8:00 EDT Appointment [facility] Radiology Nuclear Medicine and PET - [address] [address] 03/01/2024 9:30 EDT Appointment [facility] Radiology Nuclear Medicine and PET - [address] [address] documented as of this encounter Procedures Procedure Name Priority Date/Time Associated Diagnosis Comments BLOOD TYPE FOR PRENATALS- AMBULATORY Routine 02/11/2015 14:34 EDT ANTIBODY SCREEN- AMBULATORY ORDER ONLY Routine 02/11/2015 14:34 EDT documented in this encounter Results * ANTIBODY SCREEN- AMBULATORY ORDER ONLY (02/11/2015 14:34 EDT) Antibody Screen Neg 02/11/2015 22:52 EDT [facility] BLOOD SPECIMEN / Unknown 02/11/2015 14:34 EDT 02/11/2015 20:49 EDT Alaina Miranda [facility] BLOOD BANK TESTS [facility] [address] [place] [address] * BLOOD TYPE FOR PRENATALS- AMBULATORY (02/11/2015 14:34 EDT) ABO and Rh Type B NEG 02/11/2015 22:52 EDT [facility] BLOOD SPECIMEN / Unknown 02/11/2015 14:34 EDT 02/11/2015 20:49 EDT Alaina S Miranda [facility] BLO[facility] ORDERABLE S [facility] [address] [place] [address] documented in this encounter Visit Diagnoses Not on filedocumented in this encounter Care Teams Dollyman Relationship Specialty Start Date End Date None, Provider PCP - General 01/01/15 08/27/15 documented as of this encounter
--- OUTSIDE RECORDS SUMMARY | 2023-12-16 00:47 | XMS_ITS | Encounter Summary ---
Author Organization [facility] Address [address] [place] [address] Care Team Providers Care Sales Trainee Name Role Phone Unavailable Primary Care Provider Unavailabl e Encounter Details Date Type Department Care Team (Latest Contact Info) Description 10/11/2006 10:03 EDT - 10/11/2006 11:59 EDT Hospital Encounter [address] [address] Fermin Lovett MD Discharge Disposition: Auto Discharge Social History Tobacco Use Types Packs/Day Years Used Date Smoking Tobacco: Never Assessed Sex and Gender Information Value Date Recorded Sex Assigned at Not on file Gender Identity Female 06/18/2019 8:54 EST Sexual Orientation Not on file documented as of this encounter Discharge Disposition Disposition Code Departure Means Destination Auto Discharge documented in this encounter Plan of Treatment Upcoming Encounters Date Type Department Care Team (Late st Contact Info) Description 02/21/2024 9:45 EDT Office Visit [facility] Adult Primary Care - [address] [phone] Carrington Calderon MD [address] [phone] 02/27/2024 8:30 EDT Telemedicine [facility] Sleep Program - [address] [phone] Rn, Sleep 02/29/2024 10:30 EDT Appointment [facility] Radiology Nuclear Medicine and PET [address] [address] 02/29/2024 14:30 EDT Appointment [facility] Radiology Nuclear [facility] and [address] [address] 03/01/2024 8:00 EDT Appointment [facility] Radiology Nuclear [facility] and [address] [address] 03/01/2024 9:30 EDT Appointment [facility] Radiology [facility] and PET [address] [address] documented as of this encounter Procedures Procedure Name Priority Date/Time Associated Diagnosis Comments RAD US PELVIS TRANSABDOMINAL AND TRANSVAGINAL 10/11/2006 10:38 EDT documented in this encounter Results * RAD US PELVIS TRANSABDOMINAL AND TRANSVAGINAL (10/11/2006 10:38 EDT) Anatomical Region Laterality Modality Other 10/11/2006 10:3 8 EDT Narrative 12/04/2008 10:48 EDT abd pain, missed period, negative upt. Pelvic ultrasound 10/11/2006 History: Abdominal pain, missed period, Negative urine test, rule out ovarian cyst Transabdominal and transvaginal scans were obtained. The uterus is normal in size and appearance. It measures 6.2 x 2.9 x 4.0 cm. The endometrial lining is normal in thickness and appearance, it measures 8 mm in double wall thickness. The ovaries are normal in size and appearance. The right ovary measures 2.9 x 1.5 x 1.8 cm. The left ovary measures 2.9 x 1.7 x 1.8 cm. Small follicular cysts are seen in the ovaries. ??No dominant follicle is identified, however. There is no free fluid in the pelvis. The urinary bladder is unremarkable. Impression: Normal pelvic ultrasound Procedure Note Jeremiah Betancur MD - 12/04/2008 abd pain, missed period, negative upt. Pelvic ultrasound 10/11/2006 History: Abdominal pain, missed period, Negative urine test, rule out ovarian cyst Transabdominal and transvaginal scans were obtained. The uterus is normal in size and appearance. It measures 6.2 x 2.9 x 4.0 cm. The endometrial lining is normal in thickness and appearance, it measures 8 mm in double wall thickness. The ovaries are normal in size and appearance. The right ovary measures 2.9 x 1.5 x 1.8 cm. The left ovary measures 2.9 x 1.7 x 1.8 cm. Small follicular cysts are seen in the ovaries. No dominant follicle is identified, however. There is no free fluid in the pelvis. The urinary bladder is unremarkable. Impression: Normal pelvic ultrasound Fermin Lovett MD IMG US ORDERAB LES documented in this encounter Visit Diagnoses Not on filedocumented in this encounter
--- OUTSIDE RECORDS SUMMARY | 2023-12-16 00:48 | XMS_ITS | Encounter Summary ---
Author Organization [facility] Address [address] [place] [address] Care Team Providers Care Bale Breaker Operator Name Role Phone Unavailable Primary Care Provider Unavailabl e Encounter Details Date Type Department Care Team (Late st Contact Info) Description 09/21/2005 7:24 EDT - 09/21/2005 11:59 EDT Hospital Encounter [address] [address] Nathaniel Argueta MD [address] [facility] [address] [place] [phone] Discharge Disposition: Auto Discharge Social History Tobacco [...] Description 02/21/2024 9:45 EDT Office Visit [facility] Adult Primary Care - [address] [phone] Carrington Calderon MD [address] [place] [phone] 02/27/2024 8:30 EDT Telemedicine [facility] Sleep Program - S [address] [address] Rn, Sleep 02/29/2024 10:30 EDT Appointment [facility] Radiology Nuclear Medicine and PET [address] [address] 02/29/2024 14:30 EDT Appointment [facility] Radiology Nuclear Medicine and PET [address] [address] 03/01/2024 8:00 EDT Appointment [facility] Radiology Nuclear Medicine and PET [address] [address] 03/01/2024 9:30 EDT Appointment [facility] Radiology Nuclear Medicine and [address] [address] documented as of this encounter Procedures Procedure Name Priority Date/Time Associated Diagnosis Comments RAD US BREAST UNILATERAL - ONE BREAST 09/21/2005 7:40 EDT documented in this encounter Results * RAD US BREAST UNILATERAL - ONE BREAST (09/21/2005 7:40 EDT) Anatomical Region Laterality Modality Other 09/21/2005 7:40 EDT Narrative 12/21/2008 10:45 EDT RIGHT BR PALP LUMP (X2) WITH PAIN This is the patient's baseline exam. Right Breast Findings: (ultrasound (diagnostic)): Ultrasound of the area of clinical concern is normal. ??There is no underlying cyst or solid mass. ??The patient was advised to follow up with her physician. ??If the area in question continues to be suspicious, a surgical referral is recommended. The entire breast was scanned. IMPRESSION: RIGHT BREAST - CATEGORY 1 Negative, no evidence of malignancy. Age appropriate follow up is recommended. Current mammography screening guidelines recommend a yearly exam for women over age 40. Any decision to biopsy should be based on clinical assessment. Results and recommendations for follow-up were discussed with the patient by the fluid jet cutter operator at the time of the exam. OVERALL ASSESSMENT - NEGATIVE END OF IMPRESSION Procedure Note Cheyenne Cagle MD - 12/21/2008 RIGHT BR PALP LUMP (X2) WITH PAIN This is the patient's baseline exam. Right Breast Findings: (ultrasound (diagnostic)): Ultrasound of the area of clinical concern is normal. There is no underlying cyst or solid mass. The patient was advised to follow up with her physician. If the area in question continues to be suspicious, a surgical referral is recommended. The entire breast was scanned. IMPRESSION: RIGHT BREAST - CATEGORY 1 Negative, no evidence of malignancy. Age appropriate follow up is recommended. Current mammography screening guidelines recommend a yearly exam for women over age 40. Any decision to biopsy should be based on clinical assessment. Results and recommendations for follow-up were discussed with the patient by the fluid jet cutter operator at the time of the exam. OVERALL ASSESSMENT - NEGATIVE END OF IMPRESSION Nathaniel Argueta MD IMG US ORDERABLES documented in this encounter Visit Diagnoses Not on filedocumented in this encounter
--- OUTSIDE RECORDS SUMMARY | 2023-12-16 00:48 | XMS_ITS | Encounter Summary ---
Author Organization [facility] Address [address] [place] [address] Care Team Providers Care Traffic Court Referee Name Role Phone Unavailable Primary Care Provider Unavailabl e Encounter Details Date Type Department Care Team (Late st Contact Info) Description 04/29/2006 8:02 [facility] Hospital Encounter [facility] [address] [place] [address] Fermin Trejo MD Kehoe, Stephanie S [address] [place] [phone] Social History Tobacco Use Types Packs/Day Years Used Date Smoking Tobacco: Every Day Cigarettes 0.5 13.1 Started: 11/10/2010 Smokeless Tobacco: Never Comments:06/13/20 actively try ing to quit about 5-8 cigs/day Alcohol Use Standard Drinks/Week Comments Yes 0 (1 standard drink = 0.6 oz pur e alcohol) rarely [facility] Utilities Answer Date Recorded In the past 12 months has [place], gas, oil, or water [employer] threatened to shut off services in your [...] any time in the past 12 [facility], were you homeless or living [...] Info) Description 02/21/2024 9:45 EDT Office Visit [facility] Adult Primary Care - [address] [phone] Carrington Calderon MD [address] [place] [phone] 02/27/2024 8:30 EDT Telemedicine [facility] Sleep Program - [address] [phone] Rn, Sleep 02/29/2024 10:30 EDT Appointment [facility] Radiology Nuclear Medicine and [address] [phone] 02/29/2024 14:30 EDT Appointment [facility] Radiology Nuclear Medicine and PET [address] [phone] 03/01/2024 8:00 EDT Appointment [facility] Radiology Nuclear Medicine and PET [address] [phone] 03/01/2024 9:30 EDT Appointment [facility] Radiology Nuclear Medicine and PET [address] [phone] documented as of this encounter Visit Diagnoses Not on filedocumented in this encounter Additional Health Concerns Infection Onset Date Last Indicated Resolved Time R/O COVID-19 08/04/2020 08/04/2020 08/04/2020 11:4 0 EST documented as of this encounter
--- OUTSIDE RECORDS SUMMARY | 2023-12-16 00:48 | XMS_ITS | Encounter Summary ---
Author Organization [facility] Address [address] [place] [address] Care Team Providers Care Server Administrator Name Role Phone Unavailable Primary Care Provider Unavailabl e Encounter Details Date Type Department Care Team (Late st Contact Info) Description 08/19/2004 16:02 [facility] Hospital Encounter [facility] - Other [address] [place] [address] oRsalio Bueno MD [address] [phone] Social History Tobacco Use Types Packs/Day Years Used Date Smoking Tobacco: Every Day Cigarettes 0.5 13.1 Started: 11/10/2010 Smokeless Tobacco: Never Comments:06/13/20 actively try ing to quit about 5-8 cigs/day Alcohol Use Standard Drinks/Week Comments Yes 0 (1 standard drink = 0.6 oz pur e alcohol) rarely C Utilities Answer Date Recorded In the past 12 months has [employer], gas, oil, or water [employer] threatened to shut off services in your [...] [facility] - [address] [phone] Carrington Calderon MD [address] [place] [phone] 02/27/2024 8:30 EDT Telemedicine [facility] Sleep Program - [address] [address] Rn, Sleep 02/29/2024 10:30 EDT Appointment [facility] Radiology Nuclear Medicine and [address] [address] 02/29/2024 14:30 EDT Appointment [facility] Radiology Nuclear Medicine and PET [address] [address] 03/01/2024 8:00 EDT Appointment [facility] Radiology Nuclear Medicine and PET [address] [address] 03/01/2024 9:30 EDT Appointment [facility] Radiology Nuclear Medicine and [address] [phone] documented as of this encounter Visit Diagnoses Not on filedocumented in this encounter Additional Health Concerns Infection Onset Date Last Indicated Resolved Time R/O COVID-19 08/04/2020 08/04/2020 08/04/2020 11:4 0 EST documented as of this encounter
--- OUTSIDE RECORDS SUMMARY | 2023-12-16 00:48 | XMS_ITS | Encounter Summary ---
Author Organization [facility] Address [address] [place] [address] Care Team Providers Care Fleet Operations Manager Name Role Phone Unavailable Primary Care Provider Unavailabl e Encounter Details Date Type Department Care Team (Latest Contact Info) Description 04/02/2004 17:44 EDT Hospital Encounter [facility] - Other [address] [place] [address] Rigo Rosenbaum MD [address] [place] [phone] Discharge Disposition: Auto Discharge Social History Tobacco [...] [facility] - [address] [phone] Carrington Calderon MD [address] [phone] 02/27/2024 8:30 EDT Telemedicine [facility] Sleep Program - [address] [phone] Rn, Sleep 02/29/2024 10:30 EDT Appointment [facility] Radiology Nuclear Medicine and PET - [address] [address] 02/29/2024 14:30 EDT Appointment [facility] Radiology Nuclear Medicine and PET - [address] [address] 03/01/2024 8:00 EDT Appointment [facility] Radiology Nuclear Medicine and PET [address] [address] 03/01/2024 9:30 EDT Appointment [facility] Radiology Nuclear Medicine and PET [address] [address] documented as of this encounter Visit Diagnoses Not on filedocumented in this encounter
--- OUTSIDE RECORDS SUMMARY | 2023-12-16 00:48 | XMS_ITS | Encounter Summary ---
Author Organization [facility] Address [address] [place] [address] Care Team Providers Care Manager Fixed Income Name Role Phone Unavailable Primary Care Provider Unavailabl e Encounter Details Date Type Department Care Team (Late st Contact Info) Description 09/27/2005 9:47 EDT Hospital Encounter [facility] [place], [place] [address] [place] [address] Oscar Moreno MD MSc [address] [place] [phone] Social History Tobacco Use Types Packs/Day Years Used Date Smoking Tobacco: Every Day Cigarettes 0.5 13.1 Started: 11/10/2010 Smokeless Tobacco: Never Comments:06/13/20 actively try ing to quit about 5-8 cigs/day Alcohol Use Standard Drinks/Week Comments Yes 0 (1 standard drink = 0.6 oz pur e alcohol) rarely [facility] Utilities Answer Date Recorded In the past 12 months has [employer], gas, oil, or water [employer] threatened to shut off services in your [...] in a alf (including now)? No 06/14/2023 Housing Stability Vital Sign Answer Norm e Recorded In the last 12 months, was t here a time when you were not able to pay the mortgage or rent on time? No 11/15/2023 In the past 12 months, how m any times have you moved where you were living? 1 11/15/2023 At any time in the past 12 m [facility], were you homeless or living in a alf (including now)? No 11/15/2023 Interpersonal Safety Answer [...] Visit [facility] Adult Primary Care [address] [phone] Carrington Calderon MD [address] [place] [phone] 02/27/2024 8:30 EDT Telemedicine [facility] Sleep Program - [address] [address] Rn, Sleep 02/29/2024 10:30 EDT Appointment [facility] Radiology Nuclear Medicine and PET [address] [phone] 02/29/2024 14:30 EDT Appointment [facility] Radiology Nuclear Medicine and PET [address] [address] 03/01/2024 8:00 EDT Appointment [facility] Radiology Nuclear Medicine and PET [address] [address] 03/01/2024 9:30 EDT Appointment [facility] Radiology Nuclear Medicine and PET [address] 011241 documented as of this encounter Visit Diagnoses Not on filedocumented in this encounter Additional Health Concerns Infection Onset Date Last Indicated Resolved Time R/O COVID-19 08/04/2020 08/04/2020 08/04/2020 11:4 0 EST documented as of this encounter
--- OUTSIDE RECORDS SUMMARY | 2023-12-16 00:48 | XMS_ITS | Encounter Summary ---
Author Organization [facility] Address [address] [place] [address] Care Team Providers Care Curator Medical Museum Name Role Phone Unavailable Primary Care Provider Unavailabl e Encounter Details Date Type Department Care Team (Late st Contact Info) Description 04/11/2004 Office Visit [facility] - [facility] [address] [place] [address] Josh Coelho, PA-C 111 [facility], Level [address] [place] [phone] Social History Tobacco Use Types Packs/Day Years Used Date Smoking Tobacco: Never Assessed Sex and Gender Information Value Date Recorded Sex Assigned at Not on file Gender Identity Female 06/18/2019 8:54 EST Sexual Orientation Not on file documented as of this encounter Progress Notes * Josh Coelho Jr., PA - 08/08/2009 1407 EST Emergency Department ??? Physician Summary Registration Date/Time 04/11/2004 12:25 Arrived- By private vehicle. Historian- patient. HISTORY OF PRESENT ILLNESS Chief complaint- ABDOMINAL PAIN and VOMITING, DIARRHEA, NAUSEA and CRAMPS. This started yesterday and is still present. It is described as cramping and diffuse. Modifying factors- Not worsened by anything. Not relieved by anything. She has had nausea. The patient has had vomiting. The vomiting has occurred only once. She has had mild diarrhea. This has occurred only once. No loss of appetite. The patient has had similar symptoms previously. REVIEW OF SYSTEMS Last normal menstrual period was 2 weeks ago. Sexual history - sexually active. Has had a tubal ligation. The patient has had urinary frequency. The patient has had a skin rash. No constipation, black stools, hematemesis, difficulty with urination or pain with urination. No bloody stools, fever, headache, sore throat or blurred vision. No chest pain, difficulty breathing, cough, joint pain or back pain. All systems otherwise negative, except as recorded above. PAST HISTORY See nurses notes. Medications: See nurses notes. Allergies: See nurses notes. SOCIAL HISTORY Nonsmoker. No alcohol. FAMILY HISTORY No family history of gall bladder problems. ADDITIONAL NOTES The nursing noteshave been reviewed. PHYSICAL EXAM Appearance: Alert. No acute distress. Vital Signs: The vital signs have been reviewed. Eyes: Pupils equal, round and reactive to light. Eyes normal inspection. ENT: Ears normal. Nose normal. Pharynx normal. Neck: Normal inspection. Neck supple. CVS: Normal heart rate and rhythm. Heart sounds normal. Respiratory: No respiratory distress. Breath sounds normal. Chest nontender. Abdomen: Moderately obese. Mild tenderness diffusely. No guarding, rebound tenderness or Owen's, obturator or psoas sign present. No guarding, rebound tenderness, organomegaly, abdominal distentionor mass present. Back: Normal inspection. : Normal external exam. Speculum exam normal. Vaginal bleeding. No vaginal discharge. Bimanual exam normal. No tenderness present on bimanual exam. Uterus not enlarged. Skin: Normal skin color. Skin warm and dry. No rash. Extremities: Extremities exhibit normal ROM. No pedal edema. Neuro: Oriented X 3. No motor deficit. No sensory deficit. LABS, X-RAYS, AND EKG CBC: CBC is normal. Urinalysis: Clean-catch specimen (dipstick). Urine dipstick positive for large blood and moderate protein. Urine dipstick negative for leukocyte esterase, nitrite, glucose, ketones and bilirubin. HCG: UrineHCG negative. PROGRESS AND PROCEDURES E.D. Course: gc and denise cx pending, pt very comfortable throughout all aspects of exam Patient is stable. Patient/family counseled. Old medical records ordered. Disposition orders written. ED Attending on duty and available for supervision: Nishant Salomon. Disposition: Discharged home in good condition. Condition: good. CLINICAL IMPRESSION Dysfunctional uterine bleeding. INSTRUCTIONS Do not work today. Drink plenty of fluids. Prescription Medications: Naproxen 500 mg tablets: take 1 tablet orally twice daily as needed. Dispense 20. No refills. Follow-up: Follow up with your doctor in about two days if not well. Josh Cantu (Electronically signed Josh Cantu 04/11/2004 17:39) Physician'sClinical Report Emergency Department ??? Nursing Summary Registration Date/Time 04/11/2004 12:25 TRIAGE Initial Assessment Triage time 12:23 Acuity: LEVEL 4. BP: 155 / 55 HR: 117 RR: 12 Temp: 36. O2 saturation: 99%. --12:27 Manda Loo R.N. Medications (bcp diet pill sometimes). --12:27 Manda Loo R.N. Allergies No known drug allergies. --12:27 Manda Loo R.N. History Chief Complaint: ABDOMINAL PAIN, VOMITING and DIARRHEA. Pain level now: 5/10. The patient has had nausea, vomiting, diarrhea and abdominal pain. No treatment prior to arrival. PAST HX: Last normal menstrual period was 1 week ago. SOCIAL HX: Nonsmoker. Denies alcohol use. Arrived by private vehicle. --12:27 Manda Loo R.N. NURSING PROGRESS NOTES Progress Clean catch urine collected. Urine dip large amount for blood (sg 1.010, ph 8.0 all else neg). --13:40 Fermin Millan R.N. KETOROLAC 15 mg IVP. --14:21 Fermin Millan R.N. IV / I&O Flowsheet IV site #1: location left antecubital space. Started: 20g angiocath. IV fluid started- #1 bag NS 1000 mL. Rate - wide open. --14:21 Fermin Millan R.N. IV site #1. IV site discontinued. --15:22 Fermin Millan R.N. DISPOSITION / DISCHARGE Patient reports pain level on departure as 0/10. Condition at departure: improved. No barriers to learning present. Discharge instructions reviewed with the patient and cottrell operator. Warnings reviewed. Reviewed medication. Treatments reviewed. Reviewed referrals. Patient and cottrell operator verbalized understanding. The patient was discharged home and accompanied by cottrell operator. The patient left the Emergency Department ambulatory and via private vehicle. Patient has no belongings. --15:23 Rob Gould R.N., R.N. Locked/Released at 04/11/2004 23:18 by Fermin Millan R.N. documented in this encounter Plan of Treatment Upcoming Encounters Date Type Department Care Team (Late st Contact Info) Description 02/21/2024 9:45 EDT Office Visit [facility] [address] [phone] Carrington Calderon MD [address] [place] [phone] 02/27/2024 8:30 EDT Telemedicine [facility] Sleep Program - [address] [phone] Rn, Sleep 02/29/2024 10:30 EDT Appointment [facility] Radiology Nuclear Medicine and PET [address] 242861 02/29/2024 14:30 EDT Appointment [facility] Radiology Nuclear Medicine and PET [address] 547161 03/01/2024 8:00 EDT Appointment [facility] Radiology Nuclear Medicine and PET [address] [address]651 03/01/2024 9:30 EDT Appointment [facility] Radiology Nuclear Medicine and PET [address] 587741 documented as of this encounter Visit Diagnoses Not on filedocumented in this encounter
--- OUTSIDE RECORDS SUMMARY | 2023-12-16 00:48 | XMS_ITS | Encounter Summary ---
Author Organization [facility] Address [address] [place] [address] Care Team Providers Care Grants Specialist Name Role Phone Unavailable Primary Care Provider Unavailabl e Encounter Details Date Type Department Care Team (Latest Contact Info) Description 01/24/2006 14:06 EDT Hospital Encounter [facility] - Maple conversion [address] [place] [address] Felix Merritt III, MD [address] [place] [phone] Discharge Disposition: Auto Discharge Social History Tobacco [...] Visit [facility] Adult Primary Care - [address] [phone] Carrington Calderon MD [address] [phone] 02/27/2024 8:30 EDT Telemedicine [facility] Sleep Program - [address] [phone] Rn, Sleep 02/29/2024 10:30 EDT Appointment [facility] Radiology Nuclear Medicine and PET [facility] [address] [place] [address] 02/29/2024 14:30 EDT Appointment [facility] Radiology Nuclear Medicine and PET [facility] [address] [place] [address] 03/01/2024 8:00 EDT Appointment [facility] Radiology Nuclear Medicine and PET [facility] [address] [place] [address] 03/01/2024 9:30 EDT Appointment [facility] Radiology Nuclear Medicine and PET [address] [address] documented as of this encounter Procedures Procedure Name Priority Date/Time Associated Diagnosis Comments COMPLETE BLOOD COUNT Routine 01/24/2006 16:03 EDT TSH Routine 01/24/2006 16:03 EDT COMPREHENSIVE METABOLIC PANEL (CMP) Routine 01/24/2006 16:03 EDT documented in this encounter Results * TSH (01/24/2006 16:03 EDT) Pathologist [facility] TSH 1.13 0.35 - 5.00 uIU/mL [facility] 01/24/2006 16:0 3 EDT 01/24/2006 18:49 EDT Fermin Trejo MD CHEMISTRY & BLOOD GA S ORDERABLES [facility] [address] [place] [address] * (ABNORMAL) COMPREHENSIVE METABOLIC PANEL (01/24/2006 16:03 EDT) Pathologist [facility] Potassium 4.0 3.5 - 5.0 mEq/L [facility] Sodium 141 136 - 145 mEq/L [facility] Chloride 104 96 - 110 mEq/L [facility] CO2 29 24 - 32 mEq/L [facility] Total Alkaline Phosphatase 103 38 - 126 U/L [facility] Bilirubin, Total <0.5 0.2 - 1.3 mg/dl [facility] AST 29 15 - 46 U/L [facility] ALT 33 9 - 52 U/L [facility] Albumin 4.2 3.4 - 4.9 g/dl [facility] Total Protein 7.3 6.5 - 8.3 g/dl [facility] Creatinine 0.70 0.7 - 1.5 mg/dl [facility] GFR, Calculated >60 ml/min/1.7 3m2 [facility] BUN 9(L) 10 - 26 mg/dl [facility] Calcium 9.4 8.5 - 10.5 mg/dl [facility] Calculated Calcium 9.6 8.5 - 10.5 mg/dl [facility] Glucose, Serum 106(H) 70 - 100 mg/dl [facility] Fasting? Yes [facility] Albumin/Globulin Ratio 1.4 [facility] 01/24/2006 16:0 3 EDT 01/24/2006 18:49 EDT Fermin Trejo MD CHEMISTRY & BLOOD GA S ORDERABLES Performing Organization Address City/State/[facility] Co de Phone Number [facility] [address] [place] [address] * (ABNORMAL) HEMAGRAM (01/24/2006 16:03 EDT) WBC 12.11 4.0 - 12.4 K/cmm [facility] RBC 4.48 3.86 - 5.04 M/cmm [facility] Hemoglobin 13.2 11.6 - 15.2 gm/dl [facility] HCT 39.0 34.9 - 44.4 % [facility] MCV 87 81 - 98 fl [facility] MCH 29.4 26.7 - 33.3 pg [facility] MCHC 33.8 32.1 - 35.9 gm/dl [facility] PLT 457(H) 141 - 320 K/cmm [facility] RDW-CV 13.0 11.7 - 14.6 % [facility] 01/24/2006 16:0 3 EDT 01/24/2006 18:49 EDT Fermin Trejo MD HEMATOLOGY & PF4 ORD ERABLES [facility] Organization Address City/State/[facility] Co de Phone Number [facility] [address] [place] [address] documented in this encounter Visit Diagnoses Not on filedocumented in this encounter
--- OUTSIDE RECORDS SUMMARY | 2023-12-16 00:48 | XMS_ITS | Encounter Summary ---
Author Organization [facility] Address [address] [place] [address] Care Team Providers Care Life Enrichment Manager Name Role Phone Jasmin Jara Primary Care Provider Unavail Trinity Wilson MD Primary Care Provider Encounter Details Date Type Department Care Team (Late st Contact Info) Description 04/02/2004 Results Only [facility] Family Medicine - [address] [address] Mervin Arevalo MD [address] [place] [address] [phone] Social History Tobacco Use Types Packs/Day Years [...] [facility] Adult Primary Care - [address] [address] Carrington Calderon MD [address] [place] [phone] 02/27/2024 8:30 EDT Telemedicine [facility] Sleep Program - [address] [phone] Rn, Sleep 02/29/2024 10:30 EDT [facility] Radiology Nuclear [place] [address] 02/29/2024 14:30 EDT Appointment [facility] Radiology Nuclear Medicine and PET - [address] [address] 03/01/2024 8:00 EDT Appointment [facility] Radiology Nuclear [place] [address] 03/01/2024 9:30 EDT Appointment [facility] Radiology [place] [address] documented as of this encounter Procedures Procedure Name Priority Date/Time Associated Diagnosis Comments N. GONORRHOEAE AMPLIFIED PROBE Routine 04/02/2004 15:58 EDT ZZCHLAMYDIA TRACHOMATIS AMPLIFIED PROBE Routine 04/02/2004 15:58 EDT CYTOPATHOLOGY Routine 04/02/2004 0:00 EDT documented in this encounter Results * N. GONORRHOEAE AMPLIFIED PROBE (04/02/2004 15:58 EDT) Result No Neisseria gonorrhoeae DNA detected by marine equipment test engineer mediated amplification. [facility] Report Status Final [id number] [facility] Specimen Description [facility] 04/02/2004 15:5 8 EDT 04/02/2004 22:22 EDT Mervin Arevalo MD MICROBIOLOGY - GENER AL ORDERABLES [facility] [address] [place] [address] * CHLAMYDIA TRACHOMATIS AMPLIFIED PROBE (04/02/2004 15:58 EDT) Specimen Description [employer] Result No Chlamydia trachomatis DNA detected by marine equipment test engineer mediated amplification. [facility] Report Status Final [id number] [facility] 04/02/2004 15:5 8 EDT 04/02/2004 22:21 EDT Mervin Arevalo MD MICROBIOLOGY - GENER AL ORDERABLES [facility] [address] [place] [address] * CYTOPATHOLOGY (04/02/2004 0:00 EDT) Pathology Report: CYTOPATHOLOGY REPORT Reports generated via electronic interface contain original data; however they are lacking the format of the original report. Caution should be taken when reading/interpreti ng unformatted reports. Name: ? TAM DEL VALLEZABETH Bhupendra ? Accession #: ? [id number] : ? 1985 (Age: 19) ??F ?Collect Date: ? 04/02/2004 Location: ? [facility] ? Receive Date: ? 04/06/2004 Provider: ?MERVIN AREVALO MD Copy to: ? Specimen/Source: ?ThinPrep Pap Test, Cervix/Endocervix Last Menstrual Period: ? 03/27/04 Other: ? HPVA - HPV testing requested if ASC-US on the current ThinPrep Pap test. ? SPECIMEN ADEQUACY ? Satisfactory for Evaluation - transformation zone component present GENERAL CATEGORIZATION ? Negative for Intraepithelial Lesion or Malignancy INTERPRETATION ? Shift in candis present suggestive of bacterial vaginosis. ? Document reviewed and electronically signed by: ? DORYS Croft(ASCP) ? Report Date: ??04/09/2004 10:01 End of Report [facility] 04/02/2004 04/06/2004 Mervin Arevalo MD PATHOLOGY ORDERABLES Performing Organization Address City/State/[facility] Co de Phone Number [facility] [address] [place] [address] documented in this encounter Visit Diagnoses Not on filedocumented in this encounter Care Teams Life Enrichment Manager Relationship Specialty Start Date End Date Jasmin Jara PA PCP - General 10/06/09 05/09/10 Trinity Samaniego MD [address] [place] [phone] PCP - General 09/16/09 10/05/09 documented as of this encounter
--- OUTSIDE RECORDS SUMMARY | 2023-12-16 00:48 | XMS_ITS | Encounter Summary ---
Author Organization [facility] Address [address] [place] [address] Care Team Providers Care Contract Programmer Name Role Phone Unavailable Primary Care Provider Unavailabl e Encounter Details Date Type Department Care Team (Late st Contact Info) Description 05/27/2006 9:45 EST Hospital Encounter [facility] - Maple conversion [address] [place] [address] Fermin Lovett MD Social History Tobacco Use Types Packs/Day Years Used Date Smoking Tobacco: Every Day Cigarettes 0.5 13.1 Started: 11/10/2010 Smokeless Tobacco: Never Comments:06/13/20 actively try ing to quit about 5-8 cigs/day Alcohol Use Standard Drinks/Week Comments Yes 0 (1 standard drink = 0.6 oz pur e alcohol) rarely C Utilities Answer Date Recorded In the past 12 months has [employer], gas, oil, or water company threatened to [...] any time in the past 12 m [facility], were you homeless or living in a [...] [facility] - [address] [address] Carrington Calderon MD [address] [place] [phone] 02/27/2024 8:30 EDT Telemedicine [facility] Sleep Program - [address] [phone] Rn, Sleep 02/29/2024 10:30 EDT Appointment [facility] Radiology Nuclear Medicine and PET [address] [address]991 02/29/2024 14:30 EDT Appointment [facility] Radiology Nuclear Medicine and PET [address] 407871 03/01/2024 8:00 EDT Appointment [facility] Radiology Nuclear Medicine and PET [address] [phone] 03/01/2024 9:30 EDT Appointment [facility] Radiology Nuclear Medicine and PET [address] 479751 documented as of this encounter Visit Diagnoses Not on filedocumented in this encounter Additional Health Concerns Infection Onset Date Last Indicated Resolved Time R/O COVID-19 08/04/2020 08/04/2020 08/04/2020 11:4 0 EST documented as of this encounter
--- OUTSIDE RECORDS SUMMARY | 2023-12-16 00:48 | XMS_ITS | Encounter Summary ---
Author Organization [facility] Address [address] [place] [address] Care Team Providers Care Optical Assistant Name Role Phone Unavailable Primary Care Provider Unavailabl e Encounter Details Date Type Department Care Team (Latest Contact Info) Description 12/02/2005 17:43 EDT Hospital Encounter [facility] [address] [place] [phone] Villa Rodriguez MD Discharge Disposition: Auto Discharge Social History [...] [facility] Adult Primary Care - [address] [phone] Carrington Calderon MD [address] [place] [address] [phone] 02/27/2024 8:30 EDT Telemedicine [facility] Sleep Program - [address] [phone] Rn, Sleep 02/29/2024 10:[address] [facility] Radiology Nuclear Medicine and PET - [address] [phone] 02/29/2024 14:[address] [facility] Radiology Nuclear Medicine and PET - [address] [address] 03/01/2024 8:00 EDT Appointment [facility] Radiology Nuclear Medicine and PET - [address] [address] 03/01/2024 9:30 EDT Appointment [facility] Radiology Nuclear Medicine and PET [address] [address] documented as of this encounter Visit Diagnoses Not on filedocumented in this encounter
--- OUTSIDE RECORDS SUMMARY | 2023-12-16 00:48 | XMS_ITS | Encounter Summary ---
Author Organization [facility] Address [address] [place] [address] Care Team Providers Care Chief Of Safety And Protection Name Role Phone Unavailable Primary Care Provider Unavailabl e Encounter Details Date Type Department Care Team (Late st Contact Info) Description 03/30/2006 7:53 EDT Hospital Encounter [facility] [address] [place] [address] Unknown, Provider, Social History Tobacco Use Types Packs/Day Years Used Date Smoking Tobacco: Every Day Cigarettes 0.5 13.1 Started: 11/10/2010 Smokeless Tobacco: Never Comments:06/13/20 actively try ing to quit about 5-8 cigs/day Alcohol Use Standard Drinks/Week Comments Yes 0 (1 standard drink = 0.6 oz pur e alcohol) rarely [facility] Utilities Answer Date Recorded In the past 12 months has [employer], [employer], oil, or water [employer] threatened to shut off services in your [...] any time in the past 12 m [facility], were you homeless or living in [...] / [facility] Adult Primary Care - [address] [phone] Carrington Calderon MD [address] [place] [address] [phone] 02/27/2024 8:30 EDT Telemedicine [facility] Sleep Program - [address] [address] Rn, Sleep 02/29/2024 10:30 EDT Appointment [facility] Radiology Nuclear Medicine and PET [address] [phone] 02/29/2024 14:30 EDT Appointment [facility] Radiology Nuclear Medicine and PET [address] [address] 03/01/2024 8:00 EDT Appointment [facility] Radiology Nuclear Medicine and PET [address] [phone] 03/01/2024 9:30 EDT Appointment [facility] Radiology Nuclear Medicine and PET [address] [phone] documented as of this encounter Visit Diagnoses Not on filedocumented in this encounter Additional Health Concerns Infection Onset Date Last Indicated Resolved Time R/O COVID-19 08/04/2020 08/04/2020 08/04/2020 11:4 0 EST documented as of this encounter
--- OUTSIDE RECORDS SUMMARY | 2023-12-16 00:48 | XMS_ITS | Encounter Summary ---
Author Organization [facility] Address [address] [place] [address] Care Team Providers Care Broom Man Name Role Phone Jasmin Jara Primary Care Provider Unavail Trinity Wilson MD Primary Care Provider [phone] Encounter Details Date Type Department Care Team (Late st Contact Info) Description 08/19/2004 Results Only [facility] Family Medicine - [address] [address] Rosalio Bueno MD [address] [place] [address] [phone] Social History Tobacco Use Types Packs/Day Years [...] 9:45 EDT Office Visit [facility] Adult Primary Care - [address] [phone] Carrington Calderon MD [address] [place] [address] [phone] 02/27/2024 8:30 EDT Telemedicine [facility] Sleep Program - [address] [phone] Rn, Sleep 02/29/2024 10:30 EDT Appointment [facility] Radiology Nuclear Medicine and PET [facility] [address] [place] [address] 02/29/2024 14:30 EDT Appointment [facility] Radiology Nuclear Medicine and PET [address] [address] 03/01/2024 8:00 EDT Appointment [facility] Radiology Nuclear Medicine and PET [address] [address] 03/01/2024 9:30 EDT Appointment [facility] Radiology Nuclear Medicine and PET [address] [address] documented as of this encounter Procedures Procedure Name Priority Date/Time Associated Diagnosis Comments COMPLETE BLOOD COUNT Routine 08/19/2004 15:37 EST TSH Routine 08/19/2004 15:37 EST documented in this encounter Results * TSH (08/19/2004 15:37 EST) TSH 0.74 0.35 - 5.50 uIU/ml [facility] 08/19/2004 15:3 7 EST 08/19/2004 18:41 EST Rosalio Bueno MD CHEMISTRY & BLOOD GA S ORDERABLES [facility] [address] [place] [address] * (ABNORMAL) HEMAGRAM (08/19/2004 15:37 EST) WBC 14.09(H) 4.0 - 12.4 K/cmm [facility] RBC 4.67 3.86 - 5.04 M/cmm [facility] Hemoglobin 14.0 11.6 - 15.2 gm/dl [facility] HCT 40.3 34.9 - 44.4 % [facility] MCV 86 81 - 98 fl [facility] MCH 30.0 26.7 - 33.3 pg [facility] MCHC 34.7 32.1 - 35.9 gm/dl [facility] PLT 429(H) 141 - 320 K/cmm [facility] RDW-CV 13.5 11.7 - 14.6 % [facility] 08/19/2004 15:3 7 EST 08/19/2004 18:41 EST Rosalio Bueno MD HEMATOLOGY & PF4 ORD ERABLES [facility] [address] [place] [address] documented in this encounter Visit Diagnoses Not on filedocumented in this encounter Care Teams Broom Man Relationship Specialty Start Date End Date Jasmin Jara PA PCP - General 10/06/09 05/09/10 Trinity Samaniego MD [address] [place] [phone] PCP - General 09/16/09 10/05/09 documented as of this encounter
--- OUTSIDE RECORDS SUMMARY | 2023-12-16 00:48 | XMS_ITS | Encounter Summary ---
Author Organization [facility] Address [address] [place] [address] Care Team Providers Care Accounts Payable Specialist Name Role Phone Unavailable Primary Care Provider Unavailabl e Encounter Details Date Type Department Care Team (Late st Contact Info) Description 06/13/2004 Office Visit [facility] [address] [place] [address] Doris Moreno MD [address] [facility], Level 1 [place] [phone] Social History Tobacco Use Types Packs/Day Years Used Date Smoking Tobacco: Never Assessed Sex and Gender Information Value Date Recorded Sex Assigned at Not on file Gender Identity Female 06/18/2019 8:54 EST Sexual Orientation Not on file documented as of this encounter Progress Notes * Doris Moreno MD - 08/08/2009 1527 EST Emergency Department ??? Physician Summary Registration Date/Time 06/13/2004 14:28 Arrived- By private vehicle. Historian- patient. HISTORY OF PRESENT ILLNESS Chief Complaint: VOMITING and DIARRHEA. NAUSEA. Is still present (Pt notes 2 weeks of am and evening vomiting, pt notes frequent urination and diarrhea with every void, Pt notes neg preg test yest, is sexually active using condoms, no menses for 3 months also notes dizziness and headache left sidedfrontal and notes nose bleeds bilat naris). No recent travel. The patient has had nausea, vomiting and diarrhea. No constipation. Has not recently been camping or on antibiotics. The illness is described as moderate.No flank pain. Patient has not had similar symptoms previously. Not recently seen/assessed. REVIEW OF SYSTEMS Last normal menstrual period- 3 months ago The patient has missed periods and had dizziness and excessive urination and notes having headache. (no one at home ill, does not drive car, drinking lots of water with this illness). No fever, muscle aches, difficulty with urination, dark urine or sore throat. No cough, chest pain, difficulty breathing, skin rash or jaundice. No back pain, fainting episodes or blurred vision. PAST HISTORY Back surgery Medications: None. Allergies: No known drug allergies. SOCIAL HISTORY Nonsmoker. No alcohol. Residence: lives with boyfriend and his family FAMILY HISTORY (diabetes - mom and aunts). PHYSICAL EXAM Appearance: Alert. No acute distress. Eyes: Pupils equal, round and reactive to light. Eyes normal inspection. ENT: Ears normal. Nose normal. Pharynx normal. Neck: Normal inspection. Neck supple. CVS: Tachycardia. Heart soundsnormal. (increase HR with sitting up). Respiratory: No respiratory distress. Breath sounds normal. Abdomen: Obese. Abdomen soft and nontender. No organomegaly. The bowel sounds are not abnormal. Back: Normal inspection. Skin: Normal skin color. Skin warm and dry. Extremities: Extremities exhibit normal ROM. No pedal edema. Neuro: Oriented X 3. PROGRESS AND PROCEDURES E.D. Course: Case discussed and E.D. care transferred (with Dr Neal pending labs and reeval). E.D. Course: Pt became symptomatic with dizziness once sat up. Will hydrate and if no change need to consider CT of head Patient/family counseled. CLINICAL IMPRESSION Vomiting. Dehydration. Doris Moreno M.D. (Electronically signed Doris Moreno M.D. 06/14/2004 8:01) Physician's Clinical Report Emergency Department ??? Physician Summary Registration Date/Time 06/13/2004 14:28 PROGRESS AND PROCEDURES E.D. Course: 17:20. Feeling better. Headache and vomiting have resolved. Wants to go home. Disposition: Discharged home. Condition: good. CLINICAL IMPRESSION Vomiting. Dehydration. David Neal M.D. (Electronically signed David Neal M.D. 06/13/2004 19:14) Physician's Clinical Report Emergency Department ??? Nursing Summary Registration Date/Time 06/13/2004 14:28 TRIAGE Initial Assessment Triage time 14:18 Acuity: LEVEL 5. BP: 111 / 67 HR: 111 RR: 14 Temp: 36.0 tympanic Alert. --14:22 Mukesh Estrada R.N. Medications None. --14:22 Mukesh Estrada R.N. Allergies No known drug allergies. --14:22 Mukesh Estrada R.N. History Chief Complaint: NAUSEA and VOMITING. (going on for last 2 weeks). Pain level now: 7/10. Pain level at this time described as- head pain The patient notes having headache and has had dizziness. (states she had negaative home test last pm). PAST HX: Back surgery. Last normal menstrual period- 3 months ago SOCIAL HX: Nonsmoker. Denies alcohol use. No report of abuse. No functional impairments. Arrived by private vehicle and accompanied by family. Historian: patient. --14:22 Mukesh Estrada R.N. NURSING PROGRESS NOTES Progress Blood samples drawn by tech per protocol and sent to lab: purple and tiger top; total amount drawn 10 mL. Blood drawn from peripheral IV site prior to IV fluid start. Line flushed post blood draw with 5 mL normal saline. --15:24 Angelo Gupta PHENERGAN 12.5 mg slow IVP over 1 minute. --15:28 Norma Evans R.N. Clean catch urine collected. Urine test negative; dip negative for blood and ketones (pH 8.0, SG 1.010, PRO trace, all rest negative). --15:36 Angelo Gupta Reassessment after medication administered. Overall patient status is improved- the patient states feels better. The patient reports headache is gone now. Family at bedside. ED physician notified about patient's status. Notified (MD NEAL). --17:21 Thomas Vogt, R.N. BP: 139 / 99 HR: 98 RR: 16 --17:30 Norma Evans R.N. Reassessment after medication administered. Overall patient status- the patient states feels better(no headache now). --17:30 Norma Evans R.N. IV / I&O Flowsheet IV site #1: location left antecubital space. Started: 18g angiocath; aseptic technique used; good blood return noted; one attempt. Saline lock in place. IV patent. No redness or swelling at site. IV line accessed- flushed with saline and blood drawn. IV fluid started- #1 bag NS 1000 mL. Rate - wideopen. --15:24 Manuela GuptaM.TReid INTAKE: IV 1000 mL --16:00Norma Evans R.N. IV fluid started- #2 bag NS 1000 mL. Rate - wide open. --16:00 Norma Evans R.N. INTAKE: IV 1000 mL --17:05 Norma Evans R.N. DISPOSITION / DISCHARGE Condition at departure: improved. No barriers to learning present. Discharge instructions reviewed with the patient. Patient verbalized understanding. The patient was discharged home and accompanied by director medical writing. The patient left the Emergency Department ambulatory and via private vehicle. --17:31 Rob Echeverria R.N., E.MCatherine Mars R.N. Locked/Released at 06/13/2004 19:11 by Norma Evans R.N. documented in this encounter Plan of Treatment Upcoming Encounters Date Type Department Care Team (Late st Contact Info) Description 02/21/2024 9:45 EDT Office Visit [facility] Adult Primary Care - [address] [phone] Carrington Calderon MD 1 [facility] Level 1 [place] [phone] 02/27/2024 8:30 EDT Telemedicine [facility] Sleep Program - [address] [place] [phone] Rn, Sleep 02/29/2024 10:30 EDT Appointment [facility] Radiology Nuclear Medicine and PET - [address] [address] 02/29/2024 14:30 EDT Appointment [facility] Radiology Nuclear Medicine and PET - [address] [address] 03/01/2024 8:00 EDT Appointment [facility] Radiology Nuclear Medicine and PET - [address] [address] 03/01/2024 9:30 EDT Appointment [facility] Radiology Nuclear Medicine and PET [address] [address] documented as of this encounter Visit Diagnoses Not on filedocumented in this encounter
--- OUTSIDE RECORDS SUMMARY | 2023-12-16 00:48 | XMS_ITS | Encounter Summary ---
Author Organization [facility] Address [address] [place] [address] Care Team Providers Care Power Line Installer And Repairer Name Role Phone Unavailable Primary Care Provider Unavailabl e Encounter Details Date Type Department Care Team (Late st Contact Info) Description 01/26/2004 12:26 EDT Hospital Encounter [address] [address] Samira Fong MD [address] [place] [phone] Social History Tobacco Use Types Packs/Day Years Used Date Smoking Tobacco: Every Day Cigarettes 0.5 13.1 Started: 11/10/2010 Smokeless Tobacco: Never Comments:06/13/20 actively try ing to quit about 5-8 cigs/day Alcohol Use Standard Drinks/Week Comments Yes 0 (1 standard drink = 0.6 oz pur e alcohol) rarely [facility] Utilities Answer Date Recorded In the past 12 months has [employer], gas, oil, or water [employer] threatened to shut off services in your [...] in a care home (including now)? No 06/14/2023 Housing Stability [...] time in the past 12 m [facility], were you homeless or living in a care home (including now)? No 11/15/2023 Interpersonal Safety [...] Info) Description 02/21/2024 9:45 EDT Office Visit [facility] Adult Primary Care - [address] [phone] Carrington Calderon MD [address] [place] [phone] 02/27/2024 8:30 EDT Telemedicine [facility] Sleep Program - [address] [phone] Rn, Sleep 02/29/2024 10:30 EDT Appointment [facility] Radiology Nuclear Medicine and PET [address] 824251 02/29/2024 14:30 EDT Appointment [facility] Radiology Nuclear Medicine and PET [address] 306161 03/01/2024 8:00 EDT Appointment [facility] Radiology Nuclear Medicine and PET [address] [phone] 03/01/2024 9:30 EDT Appointment [facility] Radiology Nuclear Medicine and PET [address] [phone] documented as of this encounter Visit Diagnoses Not on filedocumented in this encounter Additional Health Concerns Infection Onset Date Last Indicated Resolved Time R/O COVID-19 08/04/2020 08/04/2020 08/04/2020 11:4 0 EST documented as of this encounter
--- OUTSIDE RECORDS SUMMARY | 2023-12-16 00:48 | XMS_ITS | Encounter Summary ---
Author Organization [facility] Address [address] [place] [address] Care Team Providers Care Mounter Hand Name Role Phone Unavailable Primary Care Provider Unavailabl e Encounter Details Date Type Department Care Team (Latest Contact Info) Description 06/22/2006 14:50 EST Hospital Encounter [facility] - [address] [address] Broderick Ross MD Discharge Disposition: Auto Discharge Social History [facility] [address] 199961 Carrington Calderon MD [address] [place] [phone] 02/27/2024 8:30 EDT Telemedicine [facility] Sleep Program - [address] [phone] Rn, Sleep 02/29/2024 10:[address] [facility] Radiology Nuclear Medicine and PET - [address] 767171 02/29/2024 14:30 EDT Appointment [facility] Radiology Nuclear Medicine and PET - [address] [address] 03/01/2024 8:00 EDT Appointment [facility] Radiology Nuclear Medicine and PET - [address] [address] 03/01/2024 9:30 EDT Appointment [facility] Radiology Nuclear Medicine and PET [address] [address] documented as of this encounter Visit Diagnoses Not on filedocumented in this encounter
--- OUTSIDE RECORDS SUMMARY | 2023-12-16 00:48 | XMS_ITS | Encounter Summary ---
Author Organization [facility] Address [address] [place] [address] Care Team Providers Care Propeller Inspector Name Role Phone Unavailable Primary Care Provider Unavailabl e Encounter Details Date Type Department Care Team (Latest Contact Info) Description 04/11/2004 12:25 EST Hospital Encounter [facility] Emergency Department - [address] [phone] Emergency, MD Ekaterina Discharge Disposition: Home or [...] [facility] Adult Primary Care - [address] [phone] Carrington Calderon MD [address] [place] [phone] 02/27/2024 8:30 EDT Telemedicine [facility] Sleep Program - [address] [phone] Rn, Sleep 02/29/2024 10:30 EDT Appointment [facility] Radiology Nuclear Medicine and PET - [address] [phone] 02/29/2024 14:30 EDT Appointment [facility] Radiology Nuclear Medicine and [address] [address] 03/01/2024 8:00 EDT Appointment [facility] Radiology Nuclear Medicine and [address] [address] 03/01/2024 9:30 EDT Appointment [facility] Radiology Nuclear Medicine and [address] [address] documented as of this encounter Procedures Procedure Name Priority Date/Time Associated Diagnosis Comments COMPLETE BLOOD COUNT AND DIFFERENTIAL Routine 04/11/2004 14:10 EST N. GONORRHOEAE AMPLIFIED PROBE Routine 04/11/2004 13:50 EST ZZCHLAMYDIA TRACHOMATIS AMPLIFIED PROBE Routine 04/11/2004 13:50 EST documented in this encounter Results * (ABNORMAL) HEMAGRAM AND DIFFERENTIAL (04/11/2004 14:10 EST) WBC 11.41 4.0 - 12.4 K/cmm [facility] RBC 4.71 3.86 - 5.04 M/cmm [facility] Hemoglobin 14.1 11.6 - 15.2 gm/dl [facility] HCT 40.5 34.9 - 44.4 % [facility] MCV 86 81 - 98 fl [facility] MCH 29.9 26.7 - 33.3 pg [facility] MCHC 34.8 32.1 - 35.9 gm/dl [facility] PLT 433(H) 141 - 320 K/cmm [facility] RDW-CV 12.8 11.7 - 14.6 % [facility] % Neutrophils 66.1 45.5 - 79.7 % [facility] % Lymphocytes 25.4 15.0 - 46.8 % [facility] % Monocytes 7.2 1.8 - 12.0 % [facility] % Eosinophils 1.0 0.6 - 6.9 % [facility] % Basophils 0.3 0.2 - 1.4 % [facility] ABS Neutrophils 7.54 2.20 - 8.85 K/cmm [facility] ABS Lymphs 2.89 1.09 - 3.30 K/cmm [facility] Monocytes 0.82(H) 0.1 - 0.8 K/cmm [facility] Eosinophils 0.12 0.03 - 0.61 K/cmm [facility] Basophils 0.04 0.01 - 0.11 K/cmm [facility] Type of Diff: Automated [facility] 04/11/2004 14:1 0 EST 04/11/2004 14:15 EST Default Emergency MD PACKAGES & DNA PROB E ORDERABLES Performing Organization Address [facility] Phone Number [facility] [address] [place] [address] * N. GONORRHOEAE AMPLIFIED PROBE (04/11/2004 13:50 EST) Result No Neisseria gonorrhoeae DNA detected by hot air furnace installer and repairer mediated amplification. [facility] Report Status Final [id number] [facility] Specimen Description [facility] 04/11/2004 13:5 0 EST 04/11/2004 14:05 EST Default Emergency MICROBIOLOGY - GENE RAL ORDERABLES Performing Organization Address [facility] de Phone Number [facility] [address] [place] [address] * CHLAMYDIA TRACHOMATIS AMPLIFIED PROBE (04/11/2004 13:50 EST) Specimen Description [facility] Result No Chlamydia trachomatis DNA detected by hot air furnace installer and repairer mediated amplification. [facility] Report Status Final [id number] [facility] 04/11/2004 13:5 0 EST 04/11/2004 14:05 EST Default Emergency MICROBIOLOGY - GENE RAL ORDERABLES Performing Organization Address [facility]/State/ZIP Co de Phone Number [facility] [address] [place] [address] documented in this encounter Visit Diagnoses Not on filedocumented in this encounter
--- OUTSIDE RECORDS SUMMARY | 2023-12-16 00:48 | XMS_ITS | Encounter Summary ---
Author Organization [facility] Address [address] [place] [address] Care Team Providers Care Systems Applications Programming Lead Name Role Phone Unavailable Primary Care Provider Unavailabl e Encounter Details Date Type Department Care Team (Latest Contact Info) Description 01/10/2006 10:03 EDT - 01/10/2006 11:59 EDT Hospital Encounter [facility] - Maple conversion [address] [place] [address] Myles Jackson Discharge Disposition: Auto Discharge Social History Tobacco [facility] [address] [phone] Carrington Calderon MD [address] [phone] 02/27/2024 8:30 EDT Telemedicine [facility] Sleep Program - [address] [phone] Rn, Sleep 02/29/2024 10:30 EDT [facility]ment [facility] Nuclear Medicine and PET [address] [address] 02/29/2024 14:30 EDT Appointment [facility] Radiology Nuclear Medicine and PET [address] [address] 03/01/2024 8:00 EDT Appointment [facility] Radiology Nuclear Medicine and PET [address] [address] 03/01/2024 9:30 EDT Appointment [facility] Radiology Nuclear Medicine and PET [address] [address] documented as of this encounter Procedures Procedure Name Priority Date/Time Associated Diagnosis Comments FOOT 3 OR MORE VIEWS 01/10/2006 10:33 EDT FOOT 3 OR MORE VIEWS 01/10/2006 10:24 EDT documented in this encounter Results * FOOT 3 OR MORE VIEWS (01/10/2006 10:33 EDT) Anatomical Region Laterality Modality Other 01/10/2006 10:3 3 EDT Narrative 12/21/2008 12:57 EDT left foot pain, right foot comparison r/o bony abnormality BILATERAL FEET 01/10/06 CLINICAL HISTORY: ??left foot pain. Right foot for comparison. FINDINGS: Three views of the right foot demonstrate no bony abnormalities. Three views of the left foot demonstrate a lucency with sclerotic margins involving the medial aspect of the navicular bone. Given the sclerotic margins, this likely either represents sequela of prior injury or an infused apophysis. D 01/10/06 T 01/11/06 /remedios Procedure Note Danyell Salgado MD - 12/21/2008 left foot pain, right foot comparison r/o bony abnormality BILATERAL FEET 01/10/06 CLINICAL HISTORY: left foot pain. Right foot for comparison. FINDINGS: Three views of the right foot demonstrate no bony abnormalities. Three views of the left foot demonstrate a lucency with sclerotic margins involving the medial aspect of the navicular bone. Given the sclerotic margins, this likely either represents sequela of prior injury or an infused apophysis. D 01/10/06 T 01/11/06 /remedios Myles [facility] NG ORDERABLES * FOOT 3 OR MORE VIEWS (01/10/2006 10:24 EDT) Anatomical Region Laterality Modality Other 01/10/2006 10:2 4 EDT Narrative 12/21/2008 12:57 EDT left foot pain r/o bony abnormality BILATERAL FEET 01/10/06 CLINICAL HISTORY: ??left foot pain. Right foot for comparison. FINDINGS: Three views of the right foot demonstrate no bony abnormalities. Three views of the left foot demonstrate a lucency with sclerotic margins involving the medial aspect of the navicular bone. Given the sclerotic margins, this likely either represents sequela of prior injury or an infused apophysis. D 01/10/06 T 01/11/06remedios Procedure Note Danyell Salgado MD - 12/21/2008 left foot pain r/o bony abnormality BILATERAL FEET 01/10/06 CLINICAL HISTORY: left foot pain. Right foot for comparison. FINDINGS: Three views of the right foot demonstrate no bony abnormalities. Three views of the left foot demonstrate a lucency with sclerotic margins involving the medial aspect of the navicular bone. Given the sclerotic margins, this likely either represents sequela of prior injury or an infused apophysis. D 01/10/06 T 01/11/06remedios Myles [facility]ER [facility]NOST[facility] IMAGI NG ORDERABLES documented in this encounter Visit Diagnoses Not on filedocumented in this encounter
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
--- OUTSIDE RECORDS SUMMARY | 2023-12-16 00:48 | XMS_ITS | Encounter Summary ---
Author Organization [facility] Address [address] [place] [address] Care Team Providers Care Dietitian Therapeutic Name Role Phone Unavailable Primary Care Provider Unavailabl e Encounter Details Date Type Department Care Team (Late st Contact Info) Description 12/22/2005 11:00 EDT Hospital Encounter [facility] - Maple conversion [address] [place] [address] Fermin Lovett MD Social History Tobacco Use Types Packs/Day Years Used Date Smoking Tobacco: Every Day Cigarettes 0.5 13.1 Started: 11/10/2010 Smokeless Tobacco: Never Comments:06/13/20 actively try ing to quit about 5-8 cigs/day Alcohol Use Standard Drinks/Week Comments Yes 0 (1 standard drink = 0.6 oz pur e alcohol) rarely C Utilities Answer Date Recorded In the past 12 months has [employer], gas, oil, or water company threatened to [...] in a chcf (including now)? No 06/14/2023 Housing Stability Vital [...] in the past 12 m [facility], were you homeless or living in a chcf (including now)? No 11/15/2023 Interpersonal Safety Answer [facility] [address] [address] Carrington Calderon MD [address] [place] [address] [phone] 02/27/2024 8:30 EDT Telemedicine [facility] Sleep Program - [address] [phone] Rn, Sleep 02/29/2024 10:30 EDT Appointment [facility] Radiology Nuclear Medicine and PET [address] [phone] 02/29/2024 14:30 EDT Appointment [facility] Radiology Nuclear Medicine and PET [address] [phone] 03/01/2024 8:00 EDT Appointment [facility] Radiology Nuclear Medicine and PET [address] [id number] 03/01/2024 9:30 EDT Appointment [facility] Radiology Nuclear Medicine and PET [address] [phone] documented as of this encounter Visit Diagnoses Not on filedocumented in this encounter Additional Health Concerns Infection Onset Date Last Indicated Resolved Time R/O COVID-19 08/04/2020 08/04/2020 08/04/2020 11:4 0 EST documented as of this encounter
--- OUTSIDE RECORDS SUMMARY | 2023-12-16 00:48 | XMS_ITS | Encounter Summary ---
Author Organization [facility] Address [address] [place] [address] Care Team Providers Care Payment Poster Name Role Phone Unavailable Primary Care Provider Unavailabl e Encounter Details Date Type Department Care Team (Late st Contact Info) Description 03/31/2005 1:30 EDT Hospital Encounter [facility] - Other [address] [place] [address] Bhupendra Mayo MD [address] [facility] [address] [place] [phone] Social History Tobacco Use Types Packs/Day Years Used Date Smoking Tobacco: Every Day Cigarettes 0.5 13.1 Started: 11/10/2010 Smokeless Tobacco: Never Comments:06/13/20 actively try ing to quit about 5-8 cigs/day Alcohol Use Standard Drinks/Week Comments Yes 0 (1 standard drink = 0.6 oz pur e alcohol) rarely [facility] Utilities Answer Date Recorded In the past 12 months has [employer], gas, oil, or water [employer] threatened to shut off services in your [...] [facility] [address] [phone] Carrington Calderon MD [address] [place] [phone] 02/27/2024 8:30 EDT Telemedicine [facility] Sleep Program - [address] [phone] Rn, Sleep 02/29/2024 10:30 EDT Appointment [facility] Radiology Nuclear Medicine and PET [address] [phone] 02/29/2024 14:30 EDT Appointment [facility] Radiology Nuclear Medicine and [address] [phone] 03/01/2024 8:00 EDT Appointment [facility] Radiology Nuclear Medicine and PET [address] [id number] 03/01/2024 9:30 EDT Appointment [facility] Radiology Nuclear Medicine and PET [address] [phone] documented as of this encounter Procedures Procedure Name Priority Date/Time Associated Diagnosis Comments QUANT BETA HCG, Routine 03/31/2005 13:18 EDT documented in this encounter Results * HCG (03/31/2005 13:18 EDT) HCG <4 <4 mIU/ml [facility] Comment: Reference Range: Positive = >10 Borderline = 4-10 recommend repeat. Negative = <4 03/31/2005 13:1 8 EDT 03/31/2005 20:04 EDT A Josep Mayo MD CHEMISTRY & BLOOD GA S ORDERABLES [facility] [address] [place] [address] documented in this encounter Visit Diagnoses Not on filedocumented in this encounter Additional Health Concerns Infection Onset Date Last Indicated Resolved Time R/O COVID-19 08/04/2020 08/04/2020 08/04/2020 11:4 0 EST documented as of this encounter
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
--- OUTSIDE RECORDS SUMMARY | 2023-12-16 00:48 | XMS_ITS | Data Portability ---
Author Organization [facility] [place] [address] [address] Assessment No assessment recorded. Plan of Treatment Reminders Order Date Submit Date Provider Last Modified By Organization Details Last Modified Time Details Appointments None recorded . Lab None recorded . Referral None recorded . Procedures None recorded . Surgeries None recorded . Imaging XR, ankle, 3 or more view - fall, rolled ankle sat 024 07/25/19 [facility] Radiology Center (Xrays Only), [address] [place] [address], [address], 07:00:24 Medication Orders None recorded . Patient TargetsNo targets recorded. Patient InstructionsNo instructions recorded. Reason for Referral None Reported. Results Created Date Observation Date Name Description Value Unit Range Abnormal Flag LastModifiedBy Organization Detail LastModifiedTime 07/25/19 24 07/25/2023 XR, ankle , 3 or more view No observ ation record ed. [address] Radiology Center (Xrays Only) [address] [place] [address], [address], 08/04/2023 15:52:34 Result Notes None recorded. Procedures Surgical History None recorded. Imaging Results Imaging Date Name Status LastModified by Organiz ation Details LastModified Time 07/25/2023 XR, ankle, 3 or more view completed [address] Radiology Center (Xrays Only) [address] [place], [address], 08/04/2023 15:52:34 Procedure Notes None recorded. Medical Equipment None Reported. Allergies Allergen ID Allergen Name Allergen Category Reaction Reaction Severity Criticality Documentation Date Start Date Code Code System Note Provider Name and Address Organization Details Recorded Time 07656 Advil medicatio n rash severe high 07/25/2023 84008 0 RxNorm SANDOR Burch, [facility] 4 09:53:50 40383 pomegrana te fruit extract food rash severe high 07/25/2023 18242 01 RxNorm SANDOR Burch, [facility] 4 09:54:16 92947 citalopra m medicatio n rash severe high 07/25/2023 2556 RxNorm SANDOR Burch, [facility] 4 09:54:34 Medications Name Sig Start Date Stop Date Status Note LastModified by Organization Details LastModified Time tramadol 37.5 mg-acetamino phen 325 mg tablet Take 2 tablets every 4 hours by oral route. active Not Available Not Available Not Available Reglan 10 mg tablet Take 1 tablet 4 times a day by oral route. active Not Available Not Available No t Available gabapentin 300 mg capsule Take 1 capsule 3 times a day by oral route. active Not Available Not Available No t Available lorazepam 1 mg tablet Take 1 tablet 3 times a day by oral route. active Not Available Not Available No t Available insulin admin supplies subcutaneous pen Inject by subcutaneou s route. active Not Available Not Available No t Available Novolog FlexPen U-100 Insulin active Not Available Not Available Not Available Lantus Solostar U-100 Insulin active Not Available Not Available Not Available Jardiance 25 mg tablet Take 1 tablet every day by oral route. active Not Available Not Available No t Available Vitals Date Recorded Respiratory rate Body height Body mass index (BMI) Body weight Body temperature Oxygen saturation Oxygen saturation in Arterial blood by Pulse oximetry Heart rate Systolic blood pressure Diastolic blood pressure Provider Name and Address Organization Details Last Updated DateTime 4 20 /min 162.56 cm 33.5 kg/m2 79297.5 1 g 97.1 [degF] 99 % 99 % 111 /min 126 mm[Hg] 82 mm[Hg] Kylie Barros MA [facility] 4 09:58:29 Social History Question Answer Notes LastModified by Organizat ion Details LastModified Time Tobacco Smoking Status Current Every Day Smoker Kylie Barros [facility] [place] [facility]. 07/25/2023 09:56:39 What Was The Date Of Your Most Recent Tobacco Screening? 07/25/2023 [email or web address] Information not available 07/25/2023 Has Tobacco Cessation Counseling Been Provided? Yes [email or web address] Information not available 07/25/2023 On What Date Was Tobacco Cessation Counseling Provided? 07/25/2023 [email or web address] Information not available 07/25/2023 Do You Or Have You Ever Used Any Other Forms Of Tobacco Or Nicotine? No [email or web address] Information not available 07/25/2023 Sex: Female Functional Status None recorded. Mental Status None recorded. Family History Nothing Reported. Medical History No medical history recorded. Gynecological HistoryNo gynecological history recorded. Obstetrics History GPAL:G 0 P 0 0 0 0 Past Encounters Encounter ID Performer Location Encounter Start Date Encounter Closed Date Diagnosis/Indication Diagnosis SNOMED-CT Code [id number] YARA HENLEY PA-C [address] [place] [address] 07/25/2023 09:19:05 07/25/2023 10:14:51 Pain of right ankle joint [id number] 06 Health Concerns Section Related Observation LastModified by Organization Detai ls LastModified Time None Recorded Concern Status LastModified by Organization Details LastModified Time None Recorded Advance Directives Directive None Recorded Payers Encounter Date Sequence Insurance Name Policy Number Policy Cole Covered Member ID Cole Member ID Guarantor Name 07/25/2023 1 [place] [employer] [place] Cristy Luo [id number] Cristy Luo Notes Date Note Type Note Provider Name and Address Organization Details Recorded Time 07/25/2023 text/html HPI Notes: Jany cannon is a 38-year-old female presenting for right ankle pain. 2 days ago she was walking into the local hospital stepped in a snow covered pothole rolling the ankle. Since then has had pain and swelling in the right ankle. Has chronic neuropathy, but denies any changes in numbness or tingling from her baseline. Has tried rest ice elevation and abef-umo-tvocvpm pain medications with minimal relief. Continues to have significant pain. YARA HENLEY PA-C [address], [place], [address], [facility]. 07/25/2023 10:21:45 OBGyn Episode No OBEpisode recorded.
--- OUTSIDE RECORDS SUMMARY | 2023-12-16 00:48 | XMS_ITS | Encounter Summary ---
Author Organization [facility] Address [address] [place] [address] Care Team Providers Care Social Professionals Name Role Phone Unavailable Primary Care Provider Unavailabl e Encounter Details Date Type Department Care Team (Late st Contact Info) Description 03/30/2006 Before PRISM Converted Visit (Maple) [facility] - Maple conversion [address] [place] [address] Angélica Hernandez CFNP Social History Tobacco Use Types Packs/Day Years Used Date Smoking Tobacco: Never Assessed Sex and Gender Information Value Date Recorded Sex Assigned at Not on file Gender Identity Female 06/18/2019 8:54 EST Sexual Orientation Not on file documented as of this encounter Progress Notes * Ra, Conv Crop And Soil Scientist - 05/31/2009 0141 EST DIVISION OF SURGICAL ONCOLOGY - BREAST [facility] March 30, 2006 Broderick Ross M.D. [facility] [address] [place] [address], [address] [place] [phone] Dear Doctor Vandana: Thank you in advance for meeting with this very nice young woman. She was seen in the [facility] for high risk follow-up given her family history of breast cancer. She was also evaluated for some breast nodularity by Dr. Oscar Moreno, and this wasfound to be not problematic and within normal limits. She has also been evaluated for some right breast discomfort, and no worrisome cause was noted. Her family history is significant for a maternal grandmother with breast cancer, two maternal auntswith breast cancer in their 50s, and two maternal cousins with breast cancer. She does not have much information on the paternal side of her family. I saw this patient today, and her clinical exam and office ultrasound are felt to be within normal limits, however, she has extremely large breasts. It is noted she is unable to lie flat on her back for the clinical breast exam as her breasts interfere with her normal breathing pattern. She has also had rather longstanding back discomfort as well as neck discomfort. She is wearing at this point in time a FFF bra which is quite difficult to find and quite costly. She is most interested in meeting with you to discuss the possibility of bilateral breast reduction. I have indicated that you would be examining her and discussing the pros and cons of such a procedure. Again, thank you in advance for meeting with Cristy. Please let me know if we can be forthcomingwith additional information. Sincerely, Signed by JUNE Plata 04/04/2006 11:18 Armaan Arauz CFNP JUNE Plata - JUNE Plata Bhupendra addison Job ID: [id number] Document ID: [id number] cc: Broderick Ross MD JUNE Calzada Bhupendra addison Job ID: [id number] Document ID: [id number] cc: Broderick Ross MD * Dayron Knapp Crop And Soil Scientist - 05/31/2009 0140 EST OF SURGICAL ONCOLOGY - BREAST [facility] PROGRESS/FOLLOWUP NOTE - 03/30/2006 P: Positive family history of breast cancer. S: This 21-year-old woman comes to the [facility] today for high-risk screening. She was last seen here approximately [address] Oscar Moreno. At that time she was evaluated for a rightbreast lump. At that time her clinical exam was noted to have multiple, vague soft nodules, most noticeable in the right breast at 1:00-2:00 and 6:00-7:00. Ultrasound done in radiology and by Dr. Moreno in the [facility] did not reveal any abnormalities. This would be most consistent with normal fibroglandular breast tissue. However, given the patients strong family history of breast cancer, she was referred for high risk screening. On questioning, she does do self-breast exams. She denies any skinchange or dimpling, anynipple discharge. However, over the past perhaps 2 months she has noted some right breast discomfort in the area of the nipple. She states it is sharp in nature and tends to radiate outward toward the 9:00-10:00 position. It is made worse with activity. She has noted no discharge, no redness. She can recall no specific injury. She is left-handed. She does do a fair amount of lifting, she states, around the house. Again, she can recall no specific problem. Family history: Significant for two maternal cousins diagnosed with breast cancer at 29 and 39. Shehada great grandmother diagnosed with breast cancer at age 38. She has two aunts diagnosed with breast cancer in their 50s. There is no history of ovarian cancer. The patient notes that she does not have a family history from the paternal side. Ethnic background is [place] and [place]. 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 She is . She is premenopausal and has regular menstrual cycles. She has no history of fertility drug use She did use oral contraception for a year and a half in the past. Current medications: None. Update form has been reviewed. O: In general, looks well and is here with a friend today. Breast Exam: There are no palpable cervical, clavicular, or axillary nodes. The breasts are very large but symmetrical. There is no dimpling, thickening, nipple change, or discharge. There are no discrete masses palpable either breast. Of note, the patient is unable to lie flat on the table on her back secondary to her breasts causing her some discomfort with her breathing. Using the office ultrasound machine with a 7.5 megahertz transducer, both breasts are scanned in their entirety. There is no ultrasound abnormality noted either breast. A: 1. Clinically normal breast exam. 2. breast pain, questionable etiology. Question breast size, question hormonal influence, question of level of caffeine intake. P: Exam was discussed with the patient. Would recommend after knowing she does drink a fair amount of soda that she switch to a noncaffeinated soda such as 7- Up or kirsten stan. Cautioned to avoid Mountain Dew. Also will have her go for a trial of Vitamin E 400 units, one pill daily. Discussed with the patient is the size of her breasts. She is dealing with difficulty lying flat onher back secondary to the size as well as upper back and neck pain and discomfort. She has a great deal of difficulty finding bras to fit and is currently wearing a FFF. However, this does not offer her adequate support. After discussion, she will be referred to Plastic and Reconstructive Surgery, Dr. Broderick Ross, for discussion of what would be involved in bilateral breast reduction. Our plan would be to recheck her here clinically in 6 months. Self-breast exam is reviewed with her. She is reminded to call sooner should she have any questions, any problems. Signed by JUNE Plata 04/04/2006 11:18 Armaan Arauz CFNP JUNE Plata - JUNE Plata Bhupendra addison Job ID: [id number] Document ID: [id number] cc: Kamini Gore MD JUNE Calzada Bhupendra addison Job ID: [id number] Document ID: [id number] cc: Kamini Gore MD documented in this encounter Plan of Treatment Upcoming Encounters Date Type Department Care Team (Late st Contact Info) Description 02/21/2024 9:45 EDT Office Visit [facility] Adult Primary Care - [address] [id number] Carrington Calderon MD [address] [place] [address] [address] [place] [phone] 02/27/2024 8:30 EDT Telemedicine [facility] Sleep Program - [address] [place] [address] Rn, Sleep 02/29/2024 10:30 EDT Appointment [facility] Radiology Nuclear Medicine and PET - [address] [address] 02/29/2024 14:30 EDT Appointment [facility] Radiology Nuclear Medicine and PET - [address] [address] 03/01/2024 8:00 EDT Appointment [facility] Radiology Nuclear Medicine and PET - [address] [phone] 03/01/2024 9:30 EDT Appointment [facility] Radiology Nuclear Medicine and PET - [address] [phone] documented as of this encounter Visit Diagnoses Not on filedocumented in this encounter
--- OUTSIDE RECORDS SUMMARY | 2023-12-16 00:48 | XMS_ITS | Encounter Summary ---
Author Organization [facility] Address [address] [place] [address] Care Team Providers Care Operations Support Professionals Name Role Phone Unavailable Primary Care Provider Unavailabl e Encounter Details Date Type Department Care Team (Latest Contact Info) Description 06/13/2004 14:[address] [facility] Emergency Department - [address] [phone] Emergency, MD Ekaterina Discharge Disposition: Home or [...] Description 02/21/2024 9:[address] [facility] Adult Primary Care - [address] [phone] Carrington Calderon MD [address] [place] [phone] 02/27/2024 8:[address] [facility] Sleep Program - [address] [phone] Rn, Sleep 02/29/2024 10:30 EDT Appointment [facility] Radiology Nuclear Medicine and PET - [address] [phone] 02/29/2024 14:30 EDT Appointment [facility] Radiology Nuclear Medicine and PET [facility] [address] [place] [address] 03/01/2024 8:00 EDT Appointment [facility] Radiology Nuclear Medicine and [address] [address] 03/01/2024 9:30 EDT Appointment [facility] Radiology Nuclear Medicine and PET [address] [address] documented as of this encounter Procedures Procedure Name Priority Date/Time Associated Diagnosis Comments HOLD SST Routine 06/13/2004 15:19 EST COMPLETE BLOOD COUNT AND DIFFERENTIAL Routine 06/13/2004 15:19 EST documented in this encounter Results * HOLD SST (06/13/2004 15:19 EST) Hold SST Hold for further testing. Specimen will be held for 30 days. [facility] 06/13/2004 15:1 9 EST 06/13/2004 15:20 EST Default Emergency MD LAB INFO SERVICE AN D SUPPORT & PHONE RESULT [facility] [address] [place] [address] * (ABNORMAL) HEMAGRAM AND DIFFERENTIAL (06/13/2004 15:19 EST) WBC 14.22(H) 4.0 - 12.4 K/cmm [facility] RBC 4.86 3.86 - 5.04 M/cmm [facility] Hemoglobin 14.1 11.6 - 15.2 gm/dl [facility] HCT 41.8 34.9 - 44.4 % [facility] MCV 86 81 - 98 fl [facility] MCH 29.0 26.7 - 33.3 pg [facility] MCHC 33.7 32.1 - 35.9 gm/dl [facility] PLT 428(H) 141 - 320 K/cmm [facility] RDW-CV 13.2 11.7 - 14.6 % [facility] Neutrophils 82.0(H) 45.5 - 79.7 % [facility] Lymphocytes 7.0(L) 15.0 - 46.8 % [facility] % Atyp Lymphs 2.0 % [facility] Monocytes 6.0 1.8 - 12.0 % [facility] Eosinophils 3.0 0.6 - 6.9 % [facility] ABS Neutrophils 11.66(H) 2.20 - 8.85 K/cmm [facility] ABS Lymphs 1.00(L) 1.09 - 3.30 K/cmm [facility] ABS Atyp Lymphs 0.28 K/cmm [facility] ABS Monocytes 0.85(H) 0.1 - 0.8 K/cmm [facility] ABS Eosinophils 0.43 0.03 - 0.61 K/cmm [facility] RBC Morphology Normal [facility] Type of Diff: Manual [facility] 06/13/2004 15:1 9 EST 06/13/2004 15:20 EST Default Emergency PACKAGES & DNA PROB E ORDERABLES [facility] [address] [place] [address] documented in this encounter Visit Diagnoses Not on filedocumented in this encounter
--- NOTE | 2023-12-16 09:22 | DI.RAD_ITS ---
Exam(s) XR CHEST 2V PA LATERAL EXAM: XR CHEST 2V PA LATERAL CLINICAL HISTORY: Preop clearance,z01.818 TECHNIQUE: 2D digital imaging was performed. Two views. COMPARISON: No exams were available for comparison FINDINGS: HEART: Normal size. Aorta: Not dilated. PULMONARY VASCULATURE: Normal. MEDIASTINUM: Unremarkable. LUNGS: Clear. PLEURAL SPACE: No pleural effusion or pneumothorax. BONE:Unremarkable for age. SOFT TISSUES: Unremarkable. IMPRESSION: No acute abnormality. DATA REPOSITORY: RADIATION DOSE DELIVERED:
== END ==
PROVIDERS: PCP Internal Medicine; Visit Provider Podiatrist
DX: Z01.818 Encounter for other preprocedural examination (principal)
CPT/HCPCS: 71046

== ENCOUNTER 2023-12-16 09:26 | Outpatient (CLI) | payer BC, SELFPAY ==
--- NOTE | 2023-12-16 09:30 | RT.EKG_ITS ---
APPROVED REPORT Exam: Resting ECG Reason for Exam: Preop clearance Patient Location: O HR:106 bpm ECG Measurements Heart Rate 106 AXIS AK 140 P 66 QRSd 93 QRS 17 QT 319 T 20 QTc 424 Conclusion Sinus tachycardia...rate> 99 Normal Electrocardiogram
== END 2023-12-16 09:27 | disposition home or self-care (01) ==
PROVIDERS: PCP Internal Medicine; Visit Provider Podiatrist
DX: Z01.818 Encounter for other preprocedural examination (principal)
CPT/HCPCS: 93005; 93010

== ENCOUNTER 2023-12-26 11:35 | Day surgery (SDC) | payer BC, SELFPAY ==
--- NOTE | 2023-12-26 09:14 | W.ANESPRE ---
General Info Height: 5 ft 4 in Weight: 90.718 kg Body Mass Index (BMI): 34.3 Surgical Procedure: Operation Date: 12/26/23 13:10 Proposed Procedure Side Surgeon p Sesamoidectomy VS Planter Planing of Sesamoids Left Madelin Ojeda DPM Meds Allergies and Home Medications Allergies Allergy/AdvReac Type Severity Reaction Status Date / Time ibuprofen (From Advil) Allergy Severe Anaphylaxis Verified 12/23/23 11:36 pomegranate Allergy Severe Anaphylaxis Verified 12/23/23 11:36 citalopram AdvReac Severe Bodily harm Verified 12/23/23 11:36 Home Medication ?Medication ?Instructions ?Recorded insulin glargine 100 unit/mL (3 40 unit subcut HS 01/14/22 mL) subcutaneous pen (Lantus Solostar U-100 Insulin) blood-glucose sensor ([employer] G6 #6 ea 05/03/22 Sensor device) lidocaine 5 % topical patch 1 patch topical DIRECTED 05/25/22 (Lidoderm) empagliflozin 10 mg tablet 10 mg PO DAILY #30 tabs 08/28/22 (Jardiance) tramadol 50 mg tablet 50 mg PO Q6H PRN PRN #30 tabs 08/28/22 metoclopramide HCl 10 mg tablet 10 mg PO Q6H 30 days #120 tabs 11/09/22 (Reglan) omeprazole 40 mg capsule,delayed 40 mg PO DAILY #30 caps 11/09/22 release ondansetron 4 mg disintegrating 4 mg PO Q6H PRN #60 tabs 02/20/23 tablet insulin aspart U-100 100 unit/mL See Rx Instructions subcut TID 04/14/23 (3 mL) subcutaneous pen (Novolog FlexPen U-100 Insulin aspart) duloxetine 40 mg capsule,delayed 40 mg PO DAILY 05/24/23 release sitagliptin phosphate 25 mg tablet 25 mg PO DAILY 08/06/23 (Januvia) gabapentin 300 mg tablet 300 - 900 mg PO DIRECTED 09/08/23 honey 80 % topical gel (MediHoney 1 applic topical DAILY #44 mL 10/18/23 (honey)) Current Visit Medications: Current Medications Generic Name Dose Route Start Last Admin Trade Name Freq PRN Reason Stop Dose Admin Ringer's Solution 1,000 mls @ 30 mls/hr 07/22/24 06:00 IV 12/26/23 23:59 INFUSION ROXANA Cefazolin Sodium/Dextrose 2 gm in 50 mls @ 100 mls/hr 12/26/23 06:00 Ancef Duplex IVPB 12/26/23 23:59 PREOP ROXANA IV Miscellaneous Supplies 1 each 12/26/23 06:00 Iv Access IV 12/26/23 23:59 DIRECTED ROXANA Sodium Chloride 0 ml 12/26/23 06:00 Normal Saline Flush 10 Ml Syr IV 12/26/23 23:59 PRN PRN Sodium Chloride 0 ml 12/26/23 06:00 Normal Saline 10 Ml Vial IJ 12/26/23 23:59 DIRECTED PRN Sterile Water 0 ml 12/26/23 06:00 Water,Injection,Sterile 10 Ml Vial IJ 12/26/23 23:59 DIRECTED PRN PFSH Active Problems Active Problems: Problem Status Onset Code Preoperative clearance Acute Z01.818 Contracture, plantar fascia Acute M72.2 Neuropathic ulcer of left foot with fat layer exposed Acute L97.[address] of the abdomen Acute R93.5 Gallbladder sludge Acute K82.8 Diabetic foot ulcer Acute E11.621, L97.509 Intractable nausea and vomiting Acute R11.2 Ulcer of left foot with fat layer exposed Acute L97.522 Osteomyelitis of left foot Acute M86.9 DVT (deep venous thrombosis) Chronic I82.409 Cellulitis of foot, left Acute L03.116 Corns and callosities Acute L84 Leukocytosis Acute D72.829 Hypomagnesemia Acute E83.42 Chronic nausea Acute R11.0 Calf pain Acute M79.669 Cellulitis of foot Acute L03.119 Diabetic toe ulcer Acute E11.621, L97.509 Abscess Acute L02.91 Vomiting Acute R11.10 Gastroparesis Chronic K31.84 IDDM (insulin dependent diabetes mellitus) Chronic Tobacco abuse Acute Z72.0 Cannabinoid hyperemesis syndrome Acute R11.2, F12.90 Upper GI bleeding Acute K92.2 UTI (urinary tract infection) Acute N39.0 Diabetic foot ulcer associated with secondary diabetes mellitus Resolved E08.621, L97.509 Hypokalemia Acute E87.6 Type 2 diabetes mellitus with diabetic neuropathy Chronic E11.40 Ulcer of other part of foot Acute L97.509 Amputation of toe of left foot Acute S98.132A Infection of toe Acute L08.9 Osteomyelitis Acute M86.9 Medical History Medical History Ulcerative esophagitis Peripheral neuropathy History of osteomyelitis IBS (irritable bowel syndrome) History of kidney stones Chest pain r/t Anxiety Back pain Cellulitis of third toe, left Type 2 diabetes mellitus History of cellulitis toe Suicide attempt Anxiety and depression Diabetic neuropathy Diabetes Type 1, per patient she said she was told she had diabetes type 2. Surgical History Surgical History History of amputation 2nd toe left foot H/O tubal ligation Amputation of left great toe Tobacco Smoking/Tobacco Use Status: Current every day Tobacco Type: cigarettes Smoking cigarettes per day: 10 Alcohol Alcohol Intake: current Alcohol intake frequency: holidays/special occasions only Substance Use Substance use: Daily Substance use type: marijuana Vital Signs and Lab Results Lab Results Blood Type / Crossmatch: No Data to Display Complete Blood Count: No Data to Display Complete Metabolic Panel: No Data to Display Liver Function Panel: No Data to Display Coagulation Panel: No Data to Display Cardiac Panel: No Data to Display Arterial Blood Gas: No Data to Display Venous Blood Gas: No Data to Display Pancreas Panel: No Data to Display Thyroid Panel: No Data to Display Infectious Disease: No Data to Display Blood Cultures: No Data to Display Toxicology Panel: No Data to Display Panel: No Data to Display Imaging and Studies Imaging and Studies Study information below may be from another EMR and interpreted by another provider. Please see original notes in EMR for more complete details. EKG Summary: 12/27: sinus tach. Anesthesia Assessment and Plan Anesthesia History Personal History: No History of Anesthesia Complications Family History: No Family History of Anesthesia Complications Exercise Tolerance Exercise Tolerance: Metabolic Equivalents>4 Implantable Cardiac Device Does patient have a Pacemaker or an ICD?: No Airway Exam Known Difficult Airway: No Mallampati Class: 2 Mouth Opening: Normal (> 3cm) Thyromental Distance: Greater than 3 cm Neck Range of Motion: Full ROM Neck Circumference: Normal Teeth Condition: Normal Dentition Preoperative Comments:: 37 yo female for sesamoidectomy. Sig PMHx: gastroparesis/vomiting, poorly controlled DM (with neuropathy, gastroparesis), smoker (tobacco/cannabis), anxiety/depression. Previous Anes: - EGD, prop, natural airway, no issues. - toe amp x 2, prop, natural airway, no issues. - [facility] lap salping, mac 3 grade 1. - [facility] toe amp, 100 fent, 50 + 50 prop.
[2023-12-26 11:42] VITALS: BP 114/84; PULSE 124; RESP 20; TEMP 36.6; O2SAT 97
--- NOTE | 2023-12-26 12:26 | PDOC.ANES ---
Date of service: 12/26/23 Time of Service: 12:26 Anesthesia Note Report Anesthesia Note: DSU RNs let us know that patient did take her Jardiance today: there is a recommended three day hold. I did discuss this with Dr. Ojeda, who reported this is an elective procedure and can be postponed. Did discuss admission with Dr. Ojeda and she is comfortable with reschedule. Discussed with patient and family member at bedside, did confirm patient took Jardiance today. Did discuss need to hold Jardiance and need to reschedule, all questions answered, patient expressed understanding and wishes to be rescheduled sometime this week if possible. I did educate that this would be up to the office and Dr. Ojeda. All questions answered and patient left in the care of DSU RN.
== END 2023-12-26 13:10 | disposition home or self-care (01) ==
LOC: SUR 11:36
PROVIDERS: PCP Internal Medicine; Visit Provider Podiatrist
DX: Z53.09 Procedure and treatment not carried out because of other contraindication (principal)
CPT/HCPCS: J2001; J2704

== ENCOUNTER 2023-12-29 15:50 | Outpatient (REF) | payer BC, SELFPAY | END 2023-12-29 15:51 | disposition home or self-care (01) | LOC: LBN 15:50 | PROVIDERS: PCP Internal Medicine; Referring Provider Podiatrist; Visit Provider Podiatrist | DX: L03.116 Cellulitis of left lower limb; L97.522 Non-pressure chronic ulcer of other part of left foot with fat layer exposed; M86.172 Other acute osteomyelitis, left ankle and foot; B95.61 Methicillin susceptible Staphylococcus aureus infection as the cause of diseases classified elsewhere | CPT/HCPCS: 87077; 87070; 87075; 87186; 87205 ==

== ENCOUNTER 2024-01-02 06:07 | Day surgery (SDC) | payer BC, SELFPAY ==
[2024-01-02] VITALS (8 sets, daily range): BP systolic 87–117; BP diastolic 54–83; PULSE 97–113; RESP 12–18; TEMP 36.2–36.7; O2SAT 95–99; BMI 35.2
--- OUTSIDE RECORDS SUMMARY | 2024-01-02 06:09 | XMS_ITS | Encounter Summary ---
Author Organization [facility] Address [address] [place] [address] Care Team Providers Care Manager Project Management Name Role Phone Carrington Calderon MD Primary Care Provi anders Abigail Díaz Unavailable Reason for Visit * Reason Comments Follow-up Gastroparesis / 6 Mo [facility] Follow-Up * Consult (Routine) - Receiving Office to Obtain Authorization Specialty Diagnoses / Procedures Referred By Kit goode Referred To Contact Diagnoses Gastroparesis Dale Collier MD [address] [place] [address] [place] [address] [facility] [facility] [address] [place] [address] Referral ID Status Reason Start Date Expiration Date Visits Requested Visits Authorized [id number] Receiving Office to Obtain Authorization Specialty Services Required 1 1 Encounter Details Date Type Department Care Team (Late st Contact Info) Description 11/16/2023 11:00 EDT Telemedicine [facility] Gastroenterology - [address] [address] Scott Arzate MD [address] [facility], [address] [place] [phone] Cyclic vomiting syndrome (Primary Dx) Social History Tobacco Use Types Packs/Day Years Used Date Smoking Tobacco: Every Day Cigarettes 0.5 13.1 Started: 11/10/2010 Smokeless Tobacco: Never Tobacco Cessation:Ready to Q uit: Not Asked; Counseling Given: Not Answered Comments:06/13/20 actively trying to quit about 5-8 cigs/day Alcohol Use Standard Drinks/Week Comments Yes 0 (1 standard drink = 0.6 oz pur e alcohol) rarely [facility] Utilities Answer Date Recorded In the past 12 months has th e [facility], [employer], oil, or water [employer] threatened to shut off services in your [...] any time in the past 12 m [facility], were you homeless or living in a [...] lives) Patient location state: Visit Location State: [place] The location of the provider: Office Provider location state: Visit Location State: [place] The following people and their roles were [...] [facility] Adult Primary Care - [address] [address] Carrington Calderon MD [address] [phone] 02/27/2024 8:30 EDT Telemedicine [facility] Sleep Program - [address] [phone] Dwight Colbert [address] [place] [address] [phone] 02/29/2024 10:30 EDT Appointment [facility] Radiology Nuclear Medicine and PET - [address] [phone] 02/29/2024 14:30 EDT Appointment [facility] Radiology Nuclear Medicine and PET - [address] [address] 03/01/2024 8:00 EDT Appointment [facility] Radiology Nuclear Medicine and PET [address] [address] 03/01/2024 9:30 EDT Appointment [facility] Radiology Nuclear Medicine and PET [address] [address] documented as of this encounter Visit Diagnoses Diagnosis Cyclic vomiting syndrome- Primary Persistent vomiting documented in this encounter Care Teams Manager Project Management Relationship Specialty Start Date End Date Carrington Calderon MD 1 [facility] Level [address] [place] [phone] PCP - General Internal Medicine - Primary Care 12/09/20 Abigail Díaz Granite Cutter Apprentice 04/21/23 documented as of this encounter
--- OUTSIDE RECORDS SUMMARY | 2024-01-02 06:09 | XMS_ITS | Encounter Summary ---
Author Organization [facility] Address [address] [place] [address] Care Team Providers Care Channel Worker Name Role Phone Carrington Calderon MD Primary Care Provi anders Abigail Díaz Unavailable [phone] Carmelo Hendrcikson Unavailable Unavailable Encounter Details Date Type Department Care Team (Late st Contact Info) Description 12/14/[address] [facility] Adult Primary Care - [place] [address] [place], [place] [phone] Carmelo Hendrickson Social History Tobacco Use Types Packs/Day Years Used Date Smoking Tobacco: Every Day Cigarettes 0.5 13.1 Started: 11/10/2010 Smokeless Tobacco: Never Comments:06/13/20 actively try ing to quit about 5-8 cigs/day Alcohol Use Standard Drinks/Week Comments Yes 0 (1 standard drink = 0.6 oz pur e alcohol) rarely C Utilities Answer Date Recorded In the past 12 months has [employer], gas, oil, or water [employer] threatened to shut off services in your [...] any time in the past [address] [facility], were you homeless or living in a [...] Carmelo Hendrickson - 12/14/2023 1234 EDT [facility] Metal Fabricator Helper Follow-up Note Encounter type: Telephone Notes: RC called Stella to follow up again and RC left a voicemail for Tsella. Plan / Action Items: RC will send letter to Stella to see if further outreach is desired. RC will follow up in 1 month. Carmelo Hendrickson 12/14/23 12:34 documented in this encounter Plan of Treatment Upcoming Encounters Date Type Department Care Team (Late st Contact Info) Description 02/21/2024 9:[address] [facility] Adult Primary Care [address] [address] Carrington Calderon MD 1 [facility] Level [address] [place] [phone] 02/27/2024 8:[address] [facility] Sleep Program - [address] [address] Dwight Colbert [address] [place] [address] 02/29/2024 10:30 EDT Appointment [facility] Radiology Nuclear Medicine and PET - [address] [address] 02/29/2024 14:30 EDT Appointment [facility] Radiology Nuclear Medicine and PET - [address] [address] 03/01/2024 8:00 EDT Appointment [facility] Radiology Nuclear Medicine and PET - [address] [address] 03/01/2024 9:30 EDT Appointment [facility] Radiology Nuclear [place] [address] documented as of this encounter Visit Diagnoses Not on filedocumented in this encounter Care Teams Channel Worker Relationship Specialty Start Date End Date Carrington Calderon MD [address] [place] [phone] PCP - General Internal Medicine - Primary Care 12/09/20 Abigail Díaz [employer] 04/21/23 Carmelo Hendrickson Coordinator 12/01/23 documented as of this encounter
--- OUTSIDE RECORDS SUMMARY | 2024-01-02 06:09 | XMS_ITS | Encounter Summary ---
Author Organization [facility] Address [address] [place] [address] Care Team Providers Care Business Assistant Name Role Phone Carrington Calderon MD Primary Care Provi anders Abigali Díaz Unavailable [phone] Carmelo Hendrickson Unavailable Unavailable Encounter Details Date Type Department Care Team (Late st Contact Info) Description 12/02/2023 Patient Outreach [facility] Adult Primary Care - [place] [address] [place], [place] [phone] Abigail Díaz Social History Tobacco Use Types Packs/Day Years Used Date Smoking Tobacco: Every Day Cigarettes 0.5 13.1 Started: 11/10/2010 Smokeless Tobacco: Never Comments:06/13/20 actively try ing to quit about 5-8 cigs/day Alcohol Use Standard Drinks/Week Comments Yes 0 (1 standard drink = 0.6 oz pur e alcohol) rarely [facility] Utilities Answer Date Recorded In the past 12 months has [employer], gas, oil, or water company threatened to [...] slept in a usp (including now)? No 06/14/2023 Housing Stability Vital Sign Answer Norm e Recorded In the last 12 months, was t here a time when you were not able to pay the mortgage or rent on time? No 11/15/2023 In the past 12 months, how m any times have you moved where you were living? 1 11/15/2023 At any time in the past 12 m [facility], were you homeless or living in a usp (including now)? No 11/15/2023 Interpersonal Safety Answer [...] Abigail Díaz - 12/02/2023 0905 EDT [facility] [employer] Care Coordination Care management phone consult as scheduled, pt did not answer phone. project management manager called and left voicemail requesting call back to reschedule. Additional outreach planned documented in this encounter Plan of Treatment Upcoming Encounters Date Type Department Care Team (Late st Contact Info) Description 02/21/2024 9:45 EDT Office Visit [facility] Adult Primary Care - [address] [phone] Carrington Calderon MD 1 [facility] [address] [place] [phone] 02/27/2024 8:30 EDT Telemedicine [facility] Sleep Program - [address] [address] ColbertDwight garner [address] [place] [address] 02/29/2024 10:30 EDT Appointment [facility] Radiology Nuclear Medicine and PET [address] [phone] 02/29/2024 14:30 EDT Appointment [facility] Radiology Nuclear Medicine and PET - [address] [phone] 03/01/2024 8:00 EDT Appointment [facility] Radiology Nuclear Medicine and PET [address] [phone] 03/01/2024 9:30 EDT Appointment [facility] Radiology Nuclear Medicine and PET [address] [address] documented as of this encounter Visit Diagnoses Not on filedocumented in this encounter Care Teams Business Assistant Relationship Specialty Start Date End Date Carrington Calderon MD [address] [phone] PCP - General Internal Medicine - Primary Care 12/09/20 Abigail Díaz Overhauler Bus Truck 04/21/23 Carmelo Hendrickson Coordinator 12/01/23 documented as of this encounter
--- OUTSIDE RECORDS SUMMARY | 2024-01-02 06:09 | XMS_ITS | Encounter Summary ---
Author Organization [facility] Address [address] [place] [address] Care Team Providers Care History Card Clerk Name Role Phone Carrington Calderon MD Primary Care Provi anders Abigail Díaz Unavailable [phone] Carmelo Hendrickson Unavailable Unavailable Encounter Details Date Type Department Care Team (Late st Contact Info) Description 12/07/2023 Patient Outreach [facility] Adult Primary Care - [place] [address] [place], [place] [phone] Carmelo Hendrickson Social History Tobacco Use Types Packs/Day Years Used Date Smoking Tobacco: Every Day Cigarettes 0.5 13.1 Started: 11/10/2010 Smokeless Tobacco: Never Comments:06/13/20 actively try ing to quit about 5-8 cigs/day Alcohol Use Standard Drinks/Week Comments Yes 0 (1 standard drink = 0.6 oz pur e alcohol) rarely C Utilities Answer Date Recorded In the past 12 months has [employer], gas, oil, or water [employer] threatened to shut off services in your [...] any time in the past 12 m [facility], were you homeless or living in [...] Carmelo Hendrickson - 12/07/2023 0957 EDT [facility] Client Success Director Follow-up Note Encounter type: Telephone Notes: RC [...] [facility] - [address] [address] Carrington Calderon MD 1 [facility] Level [address] [place] [phone] 02/27/2024 8:30 EDT Telemedicine [facility] Sleep Program - [address] [address] Dwight Colbert [address] [place] [phone] 02/29/2024 10:30 EDT Appointment [facility] Radiology Nuclear Medicine and PET [address] [address] 02/29/2024 14:30 EDT Appointment [facility] Radiology Nuclear Medicine and PET - [address] [address] 03/01/2024 8:00 EDT Appointment [facility] Radiology Nuclear Medicine and PET [address] [address]141 03/01/2024 9:30 EDT Appointment [facility] Radiology Nuclear Medicine and PET [address] [address] documented as of this encounter Visit Diagnoses Not on filedocumented in this encounter Care Teams History Card Clerk Relationship Specialty Start Date End Date Carrington Calderon MD [address] [phone] PCP - General Internal Medicine - Primary Care 12/09/20 Abigail Díaz Shorthand Reporter 04/21/23 Carmelo Hendrickson Coordinator 12/01/23 documented as of this encounter
--- OUTSIDE RECORDS SUMMARY | 2024-01-02 06:09 | XMS_ITS | Referral Summary ---
Author Organization Health system Address [address] [place] [address] Care Team Providers Care Dust Collector Name Role Phone Carrington Calderon MD Primary Care Provi anders Abigail Díaz Unavailable Carmelo Hendrickson Unavailable Unavailable Encounters Date Type Department Care Team Description 12/20/2023 Refill [facility] Adult Primary [facility] [address] [place] [address] Carrington Calderon MD Medications Refill 12/14/2023 Patient Outreach [facility] [address] [place] [address] Carmelo Hendrickson 12/09/2023 Orders Only [facility] Radiology - Main [place] [address] [place] [address] Teresita Fitzpatrick MD 12/07/2023 Patient Outreach [facility] Adult Primary [facility] [address] [place] [address] Carmelo Hendrickson 12/02/2023 Patient Outreach [facility] Adult Primary [facility] [address] [place] [address] Carmelo Hendrickson 12/02/2023 Patient Outreach [facility] Adult Primary [facility] [address] [place] [address] Abigail Díaz 12/01/2023 Patient Outreach [address] [phone] Carmelo Hendrickson 12/01/2023 15:45 EDT Office Visit [address] 197131 Nimisha Clifton NP Neuropathic diabetic ulcer of foot ([facility]) (Primary Dx); Pre-op exam 11/22/[address] [phone] Carrington Calderon MD Results 11/18/2023 Community Health Team [address] [phone] Care Management, [facility] 11/16/2023 11:00 EDT Telemedicine [facility] Gastroenterology - [address] 355371 Scott Arzate MD Cyclic vomiting syndrome (Primary Dx) 11/15/2023 Patient Outreach [address] [address] Abigail Díaz Encounter for screening involving social determinants of health (SDoH) (Primary Dx) 11/11/2023 13:30 EDT Phlebotomy Only [facility] Laboratory Services - [address] [address] Non Morse Intercept Technician, [facility] Abnormal thyroid blood test; Encounter for screening for other viral diseases 11/11/2023 13:00 EDT Office Visit [address] [phone] Carrington Calderon MD Type 2 diabetes mellitus with diabetic polyneuropathy, with long-term current use of insulin ([facility]) (HCC) (Primary Dx); Migraine with aura and without status migrainosus, not intractable; Anxiety and depression; Cyclic vomiting syndrome; Diabetic ulcer of left midfoot associated with type 2 diabetes mellitus, limited to breakdown of skin ([facility]); Primary insomnia; Abnormal thyroid blood test; Encounter [...] every 4 hours as needed for Pain. 1 Active lidocaine 5 % (LIDODERM) 5 % patchIndications:Ch ronic midline low back pain without sciatica Place 1 Patch onto the skin daily. Patch(es) may remain in place for up to 12 hours in any 24-hour period. 30 Patch 2 3 Active omeprazole (PRILOSEC) 20 mg capsuleIndications: Gastroparesis Take 1 Capsule by mouth daily. 90 Capsule 3 3 Active prochlorperazine (COMPAZINE) 25 mg suppositoryIndicati ons:Cyclic vomiting syndrome Place 1 Suppository rectally every 12 hours as needed for Nausea. 6 Suppository 11 3 Active prochlorperazine (COMPAZINE) 10 mg tabletIndications:C yclic vomiting syndrome Take 1 Tablet by mouth every 8 hours as needed for Nausea. 8 Tablet 11 3 Active ZOLMitriptan (ZOMIG) 2.5 mg tabletIndications:C atamenial disorder,Migraine with aura and without status migrainosus, not intractable,Cyclic vomiting syndrome Take 1 Tablet by mouth 2 times daily. BID starting 2 days prior to onset of menses, continuing for a total of 5 days (10 doses) 10 Tablet 11 3 Active DULoxetine 40 mg capsule,delayed release(DR/EC)Indic ations:Anxiety and depression Take 40 mg by mouth daily. 30 Capsule 11 3 Active Blood-Glucose Sensor (DEXCOM G6 SENSOR) deviceIndications:T ype 2 diabetes mellitus with diabetic polyneuropathy, with long-term current use of insulin ([facility]) Inject 1 Each into the skin every 10 days. 9 Each 4 3 Active ondansetron (ZOFRAN-ODT) 4 mg disintegrating tabletIndications:C yclic vomiting syndrome Take 1 Tablet by mouth every 8 hours as needed for Nausea. 30 Tablet 11 4 Active insulin glargine (LANTUS SOLOSTAR/SEMGLEE) 100 unit/mL (3 mL) injection penIndications:Type 2 diabetes mellitus with diabetic polyneuropathy, with long-term current use of insulin ([facility]) Inject 44 Units into the skin at bedtime. 36 mL 4 Active empagliflozin (JARDIANCE) 25 mg tabletIndications:T ype 2 diabetes mellitus with diabetic polyneuropathy, with long-term current use of insulin ([facility]) Take 1 Tablet by mouth daily. 90 Tablet 4 Active SITagliptin phosphate (JANUVIA) 100 mg tabletIndications:T ype 2 diabetes mellitus with diabetic polyneuropathy, with long-term current use of insulin ([facility]) Take 1 Tablet by mouth daily. 90 Tablet 4 4 Active metoclopramide HCl (REGLAN) 10 mg tablet Take 1 Tablet by mouth 3 times daily before meals. Starting 3 days before menses and stopping after end of period 270 Tablet 3 4 Active gabapentin (NEURONTIN) 300 mg capsuleIndications: Diabetic polyneuropathy associated with type 2 diabetes mellitus ([facility]) Take 1 Capsule by mouth every morning AND 4 Capsules at bedtime. 450 Capsule 4 Active SUMAtriptan (IMITREX) 20 mg/actuation nasal spray USE 1 SPRAY(S) INTO RIGHT NOSTRIL NEEDED FOR MIGRAINE HEADACHE 6 Each 4 Active Blood-Glucose Transmitter (DEXCOM G6 TRANSMITTER) deviceIndications:T ype 2 diabetes mellitus with diabetic polyneuropathy, with long-term current use of insulin ([facility]) Inject 1 Each into the skin every 3 months. 1 Each 4 Active HUMALOG KWIKPEN INSULIN 100 unit/mL injectable penIndications:Type 2 diabetes mellitus with diabetic polyneuropathy, with long-term current use of insulin ([facility]) 8 units with breakfast, 15 units with lunch/dinner 30 mL 11 4 Active traZODone (DESYREL) 50 mg tabletIndications:P rimary insomnia Take 1 Tablet by mouth at bedtime. 30 Tablet 4 4 Active LORazepam (ATIVAN) 0.5 mg tabletIndications:A nxiety Take 1 Tablet by mouth daily as needed for Anxiety. Daily Max: 0.5 mg 30 Tablet 3 4 Active traMADol (ULTRAM) 50 mg tabletIndications:C hronic midline low back pain without sciatica Take 1 Tablet by mouth every 6 hours as needed for Pain. Daily Max: 200 mg 30 Tablet 5 4 Active LORazepam (ATIVAN) 0.5 mg tabletIndications:A nxiety Take 1 Tablet by mouth daily as needed for Anxiety. Daily Max: 0.5 mg 30 Tablet 3 4 12/20/19 24 Discontinu ed(Reorder ) traMADol (ULTRAM) 50 mg tabletIndications:C hronic midline low back pain without sciatica Take 1 Tablet by mouth every 6 hours as needed for Pain. Daily Max: 200 mg 30 Tablet 5 4 12/20/19 24 Discontinu ed(Reorder ) Hospital, Clinic, or Other Facility Administered Medication [...] 06/19 Patient has given permission for [facility] to verbally discuss the following [...] Confirmed patient has Traditional Medicaid now. TCN: [id number] Category: P2 [place] Healy 06/10/2020 19:11 Problem Noted Date Diagnosed Date Tobacco use 12/21/2021 Skin infection 12/21/2021 Pannus, abdominal 12/21/2021 Overview: - as of 01/2022, does not meet criteria for surgical intervention (see 01/29/22 note) Neuropathic diabetic ulcer of foot ([facility]) Gastroparesis 08/10/2020 Overview: - Confirmed on gastric [...] polyneuropathy, with long-term current use of insulin ([facility]) 06/05/2020 Overview: - Dx approx [...] approx 2012 - had SI, treated at [place]. Marijuana prn to help with stress/anxiety sx -Describes paradoxical effect of citalopram, reportedly resulting in the above admission at [place] Migraine with aura and witho ut status [...] Overview: Added automatically from request for surgery [id number] of unknown anatomic location 06/20/2020 06/27/2020 Overview: Clinical Group: [facility] Patient HPI: Cristy Luo is an 35 y.o. , patient with history of ectopic and positive HCG during post operative period for unrelated procedure. Reported cramping to [facility] nurse on 06/19. LMP: End of the first week of May Rh status: B- Rhogam: Given by [facility] 06/20/20 Desired : Unknown Ectopic risk factors: hx of ectopic pregnancies and five D&C's . 10/2018: Interstitial treated w/ MTX. HCGs Lab Results Component Value Date HCGPREG 49 (H) 06/25/2020 HCGPREG 111 (H) 06/23/2020 HCGPREG 152 (H) 06/21/2020 HCGPREG 108 (H) 06/19/2020 HCGPREG 2,954 (H) 10/11/2019 HCGPREG 707 (H) 09/02/2019 HCGPREG 316 (H) 08/31/2019 Plan: 06/20/2020: US today and given RhoGham by [facility]. Place in BB per MD Esteban [...] repeat HCG 06/25 & U/S 06/25 in [facility]. MARCELO Dale 06/25/20: U/S results - [...] Overview: Added automatically from request for surgery [id number] Type 2 diabetes mellitus wit h left diabetic foot ulcer ([facility]) 05/03/2020 03/27/2021 Osteomyelitis of great toe o f left foot ([facility]) 03/12/2020 06/11/2021 Diabetic foot ulcer associat ed with diabetes mellitus due to underlying condition ([facility]) 03/07/2020 03/27/2021 Diabetic foot infection ([facility]) 03/06/2020 06/11/2021 Diabetic foot ulcer ([facility]) 03/06/2020 06/11/2021 Cellulitis of great toe of left foot 11/26/2019 06/11/2021 Encounter for sterilization 11/20/2019 06/20/2020 Overview: Added automatically from request for surgery [id number] Missed 10/12/2019 10/15/2019 Overview: Clinical Group: ED [...] seen during procedure, no pathology necessary). RReid Oropeza 10/15/19: Spoke with Catherine, doing well, [...] PCR results found No results found for: [id number] HgA1c [ ] 1T pending [ ] [...] diabetes. Last Assessment & Plan: - Reviewed [facility] group practice and clinic flow. - labs ordered today. - Desires cell free DNA, prior auth submitted today. Undecided on CF/SMA testing. - Patient reports normal Paps but unclear when last performed, will likely need at next visit. Ectopic 10/25/2018 10/12/2019 Overview: Clinical Group: [facility] (eg. COGS, ED patient, UOM, MFM, [...] Quant Beta HCG = 1652.8 mIU/ml @ [facility] 11/10/2018: Quant Beta HCG, Preg 1,117 mIU/ml* (Ref range: <5 mIU/ml) 11/21/18: Quant Beta HCG 299.98 mIU/mL at [facility] (ref range <2.39) 12/03/18: Quant Beta HCG, 41.94 mIU/ml at [facility] 12/13/18: Quant Beta HCG, 13.63 mIU/ml at [facility] Plan: 10/24/18: per Dr. Coronado repeat HCG [...] go to lab 11/08. States will go 11/09/18.[facility] 11/10/18: Plan per Dr. Almeida, repeat HCG in 1 week (11/17). Results & plan reviewed with Cristy. MARCELO Dale 11/21/18 Pt plans on going to [facility] today. [facility] 11/21/18. BHCG 299.98. Repeat in 1 week. Pt would like to go 11/27/18([facility]) as off from work [employer] 12/01/18: LVM [...] Cristy with plan. MARCELO Dale 12/25/18: Per [facility] lab last HCG was 12/13, NOS for 12/20, LVM X3, letter sent, will remove from [employer].MARCELO Dale Spontaneous miscarriage 09/04/2015/08/2018 Overview: 02/18, 08/19. Followed by Dr. López[facility] in OBGYN Type 2 diabetes mellitus ([facility]) 09/03/2015 06/11/2021 Overview: - Dx [...] Recorded In the past 12 months has [employer], gas, oil, or water [employer] threatened to shut off services in [...] in a prison (including now)? No 06/14/2023 Housing Stability Vital Sign Answer Norm e Recorded In the last 12 months, was t here a time when you were not able to pay the mortgage or rent on time? No 11/15/2023 In the past 12 months, how m any times have you moved where you were living? 1 11/15/2023 At any time in the past 12 m [facility], were you homeless or living in a prison (including now)? No 11/15/2023 Interpersonal Safety Answer [...] Visit [facility] Adult Primary Care - [address] [phone] Carrington Calderon MD 1 [facility] 1 [place] [address] 02/27/2024 8:30 EDT Telemedicine [facility] Sleep Program - [address] [address] Dwight Colbert [address] [place] [phone] 02/29/2024 10:30 EDT Appointment [facility] Radiology Nuclear Medicine and [address] [phone] 02/29/2024 14:30 EDT Appointment [facility] Radiology Nuclear Medicine and PET [address] [id number] 03/01/2024 8:00 EDT Appointment [facility] Radiology Nuclear Medicine and PET [address] [phone] 03/01/2024 9:30 EDT Appointment [facility] Radiology Nuclear Medicine and [address] [phone] Procedures Procedure Name Priority Date/Time Associated Diagnosis [...] polyneuropathy, with long-term current use of insulin ([facility]) LIPID PROFILE (INCLUDES CHOLESTEROL, TRIGLYCERIDES, HDL, LDL) Routine 11/28/2019 15:56 EDT Type 2 diabetes mellitus with other specified complication, unspecified whether [facility] insulin use ([facility]) URINE [id number] NE RATIO (ACR) Routine 11/28/2019 15:56 EDT Type 2 diabetes mellitus with other specified complication, unspecified whether [facility] insulin use ([facility]) from Last 3 Months or Most Recently Relevant to Health Maintenance Results * (ABNORMAL) THYROID CASCADE (11/11/2023 13:53 EDT) TSH 0.37(L) 0.47 - 4.68 mIU/L 11/11/2023 15:38 EDT [facility] Blood VENOUS BLOOD / Unknown Venipuncture / Unknown 11/11/2023 13:53 EDT 11/11/2023 13:55 EDT Narrative [facility] - 11/11/2023 15:38 EDT NOTE: The results of this assay can be falsely lowered due to the consumption of Biotin. Carrington Calderon MD CHEMISTRY & BLOOD GAS ORDERABLES [facility] [address] [place] [address] * HEPATITIS C AB W REFLEX TO HCV RNA BY PCR (11/11/2023 13:53 EDT) Hep C Antibody Negative Negative 11/11/2023 17:03 EDT [facility] Blood VENOUS BLOOD / Unknown Venipuncture / Unknown 11/11/2023 13:53 EDT 11/11/2023 13:55 EDT Carrington Calderon MD CHEMISTRY & BLOOD GAS ORDERABLES [facility] [address] [place], [place] [id number] * HEPATITIS B PROFILE (11/11/2023 13:53 EDT) Pathologist [facility] Hep B Surface Ag Negative Negative 11/11/19 17:04 EDT [facility] Hep B Surface Ab, Quantitative <3.1 See Note mIU/mL 11/11/2023 17:04 EDT [facility] Comment: Reference Range for Hep B Surface Ab, Quant: Positive: >= 10.0 mIU/mL Negative: ??< 10.0 mIU/mL Patient is presumed to not be immune to infection with Hepatitis B Virus. Hep B Surface Ab, Qualitative Negative See Note 11/11/2023 17:04 EDT [facility] Comment: Reference Range for Hep B Surface Ab, Qual: Unvaccinated: ??Negative Vaccinated: ??Positive Hepatitis B Core Ab, Total Negative Negative 11/11/2023 17:04 EDT [facility] Blood VENOUS BLOOD / Unknown Venipuncture / Unknown 11/11/2023 13:53 EDT 11/11/2023 13:55 EDT Carrington Calderon MD CHEMISTRY & BLOOD GAS ORDERABLES [facility] [address] [place] [address] * HIV 1/2 ANTIGEN AND ANTIBODY, 4TH GENERATION (11/11/2023 13:53 EDT) Pathologist [facility] HIV 1 and 2 Antibody/p24 Antigen, 4th Generation Negative Negative 11/11/2023 17:04 EDT [facility] Comment:If acute HIV-1 infec tion is suspected in a high risk patient, submit plasma specimen for HIV-1 RNA quantitation test. Blood VENOUS BLOOD / Unknown Venipuncture / Unknown 11/11/2023 13:53 EDT 11/11/2023 13:55 EDT Narrative [facility] - 11/11/2023 17:04 EDT Fourth Generation assay performed on the Siemens [employer] XPT. Carrington Calderon MD IMMUNOLOGY AND SEROLOGY ORDERABLES [facility] [address] [place] [id number] * T3, TOTAL (11/11/2023 13:53 EDT) T3, Total 137 97 - 169 ng/dL 11/11/2023 17:27 EDT [facility] Blood VENOUS BLOOD / Unknown Venipuncture / Unknown 11/11/2023 13:53 EDT 11/11/2023 13:55 EDT Carrington Calderon MD CHEMISTRY & BLOOD GAS ORDERABLES Performing Organization Address City/[facility]/ZIP Co de Phone Number [facility] [address] [place] [id number] * T4 FREE (11/11/2023 13:53 EDT) T4, Free 1.1 0.8 - 2.2 ng/dL 11/11/2023 16:08 EDT [facility] Blood VENOUS BLOOD / Unknown Venipuncture / Unknown 11/11/2023 13:53 EDT 11/11/2023 13:55 EDT Carrington Calderon MD CHEMISTRY & BLOOD GAS ORDERABLES [facility] [address] [place] [address] * PAP TEST (06/27/2023 16:00 EST) Specimens A. Cervix and/or Endocervix , ThinPrep Imaging System with Manual Evaluation 07/13/2023 16:25 [facility] Specimen Adequacy Satisfactory for Evaluation - transformation zone component absent 07/13/2023 16:25 [facility] General Categorization Negative for intraepithelial lesion or malignancy 07/13/2023 16:25 [facility] Attestation . 07/13/2023 16:25 [facility] at 1625 Clinical History screening 07/13/19 24 16:25 [facility] HPV The result for the Human Papillomavirus (HPV) Detection-High Risk Types is Negative. No E6 or E7 mRNA is detected from HPV types 16,18,31,33,35,39 ,45,51,52,56,58,5 9,66, and 68 by clinical services consultant mediated amplification.Lorena ting was performed on specimen [id number] and was resulted on 07/13/2023 1625 EST by JANET, LAB INSTRUMENT RESULTS IN 07/13/2023 16:25 [facility] Performing Lab [facility] 07/13/2023 16:25 [facility] Scanned Images 07/13/2023 16:25 [facility] Pap Test CERVIX UTERI STRUCTURE / Unknown 06/27/2023 16:00 EST 06/27/2023 16:00 EST Carrington Calderon MD PATHOLOGY O RDERABLES [facility] [address] [place] [address] * (ABNORMAL) HEMOGLOBIN A1C (03/14/2023 15:19 EDT) Hemoglobin A1c 8.3(H) <5.7 % 03/14/2023 22:02 EDT [facility] Comment: Glycemic Status References: Normal: ??<5.7% Pre-Diabetes: ??5.7% - 6.4% Diagnostic of Diabetes: ??> or = 6.5% (if confirmed) Est Avg Glucose 192 mg/dL 3 22:02 EDT [facility] Comment:The eAG represents t he A1c result expressed as average glucose in mg/dL. Blood VENOUS BLOOD / Unknown Venipuncture / Unknown 03/14/2023 15:19 EDT 03/14/2023 15:19 EDT Carrington Calderon MD CHEMISTRY & BLOOD GAS ORDERABLES Performing Organization Address [facility] Co de Phone Number [facility] [address] [place] [address] * (ABNORMAL) ALBUMIN, URINE (11/28/2019 15:56 EDT) Pathologist [facility] Albumin, Urine 11.3 See Note mg/dL 2019 16:47 EDT [facility] Comment: NOTE: Reference range not established Creatinine, Urine 143.1 See Note mg/dL 11/28/2019 16:47 T [facility] Comment: NOTE: Reference range not established Lab Urine Albumin to Creatinine Ratio 79(H) <30 ug/mg Creatinine 11/28/2019 16:47 T [facility] Comment: Urine Albumin/Creatinine Ratio: Normal: <30 ug/mg Creatinine Moderately increased albuminuria: 30-300 ug/mg Creatinine Severley increased albuminuria: >300 ug/mg Creatinine Urine URINE SPECIMEN OBTAINED BY CLEAN CATCH PROCEDURE / Unknown Urine Collect / Unknown 11/28/2019 15:56 EDT 11/28/2019 15:56 EDT Tonja Alejandro PA-C CHEMISTRY & BLOOD GAS ORDERABLES Performing Organization Address [facility] Co de Phone Number [facility] [address] [place] [address] * LIPID PROFILE (INCLUDES CHOLESTEROL, TRIGLYCERIDES, HDL, LDL) (11/28/2019 15:56 EDT) Cholesterol 179 See Note mg/dL 11/28/2019 17:12 [facility] Comment: Acceptable: ?<200 mg/dL Borderline High: 200-239 mg/dL High: ?> or = 240 mg/dL HDL 38 See Note mg/dL 11/28/2019 17:12 [facility] Comment: Low: ? <40 mg/dL Normal: ??40-60 mg/dL High: ?>60 mg/dL LDL, Calculated 61 See Note mg/dL 11/28/2019 17:12 [facility] Comment: Optimal: ? <100 mg/dL Near Optimal: ?100-129 mg/dL Borderline High: 130-159 mg/dL High: ?160-189 mg/dL Very High: ? > or = 190 mg/dL Triglyceride 398 See Note mg/dL 11/28/2019 17:12 [facility] Comment: Normal: ? <150 mg/dL Borderline High: ??150 - 199 mg/dL High: ? 200 - 499 mg/dL Very High: ?> or = 500 mg/dL Chol/HDL Ratio 4.7 See Note 11/28/2019 17:12 [facility] Comment: No reference range has been established for CHOL/HDL ratio. Non HDL Cholesterol 141 See Note mg/dL 11/28/2019 17:12 [facility] Comment: Desirable: ?<130 mg/dL Borderline High: ??130-159 mg/dL High: ? 160-189 mg/dL Very High: ?> or = 190 mg/dL Blood VENOUS BLOOD / Unknown Venipuncture / Unknown 11/28/2019 15:56 EDT 11/28/2019 15:56 EDT Tonja Alejandro PA-C CHEMISTRY & BLOOD GAS ORDERABLES [facility] [address] [place] [address] from Last 3 Months or Most Recently Relevant to Health Maintenance Administered Medications Advance Directives For more information, please contact: [phone] Documents on File Type Date Recorded Patient Readers' Advisory Service Librarian Expl anation Advance Directive 11/23/2022 10:36 Appt [...] participated in the discussion? Patient Care Teams Dust Collector Relationship Specialty Start Date End Date Carrington Calderon MD 1 [facility] 1 [place] [id number] PCP - General Internal Medicine - Primary Care 12/09/20 Abigail Díaz Log Chain Worker 04/21/23 Carmelo Hendrickson Coordinator 12/01/23
--- OUTSIDE RECORDS SUMMARY | 2024-01-02 06:09 | XMS_ITS | Encounter Summary ---
Author Organization [facility] Address [address] [place] [address] Care Team Providers Care Field Geologist Name Role Phone Carrington Calderon MD Primary Care Provi anders Abigail Díaz Unavailable Carmelo Hendrickson Unavailable Unavailable Encounter Details Date Type Department Care Team (Late st Contact Info) Description 12/01/2023 Patient Outreach [facility] Adult Primary Care - [place] [address] [place], [place] [phone] Carmelo Hendrickson Social History Tobacco Use Types Packs/Day Years Used Date Smoking Tobacco: Every Day Cigarettes 0.5 13.1 Started: 11/10/2010 Smokeless Tobacco: Never Comments:06/13/20 actively try ing to quit about 5-8 cigs/day Alcohol Use Standard Drinks/Week Comments Yes 0 (1 standard drink = 0.6 oz pur e alcohol) rarely [facility] Utilities Answer Date Recorded In the past 12 months has [employer], gas, oil, or water [employer] threatened to shut off services in your [...] a long term (including now)? No 06/14/2023 Housing Stability Vital [...] were you homeless or living in a long term (including now)? No 11/15/2023 Interpersonal Safety Answer [...] * Carmelo Hendrickson - 12/01/2023 1214 EDT [facility] Front End Java Developer Initial Note Referred by: Abigail Díaz [facility] PCP: Carrington Calderon Encounter type: Telephone Reason for Referral: Help with [employer] and other economic programs Notes: This human resource intern called Stella who was driving, made plan to call back tomorrow. Plan / Action Items: RC will follow up on 12/02/23 after 11am. Carmelo Hendrickson 12/01/23 12:15 documented in this encounter Plan of Treatment Upcoming Encounters Date Type Department Care Team (Late st Contact Info) Description 02/21/2024 9:45 EDT Office Visit [facility] [place] [address] Carrington Calderon MD 1 [facility] 1 [place] [phone] 02/27/2024 8:30 EDT Telemedicine [facility] Sleep Program - [address] [phone] Dwight Colbert [address] [place] [address] 02/29/2024 10:30 EDT Appointment [facility] Radiology Nuclear Medicine and PET - [address] [id number] 02/29/2024 14:30 EDT Appointment [facility] Radiology Nuclear Medicine and PET [address] [address]141 03/01/2024 8:00 EDT Appointment [facility] Radiology Nuclear Medicine and PET [address] [id number] 03/01/2024 9:30 EDT Appointment [facility] Radiology Nuclear Medicine and PET [address] [address] documented as of this encounter Visit Diagnoses Not on filedocumented in this encounter Care Teams Field Geologist Relationship Specialty Start Date End Date Carrington Calderon MD 1 [facility] 1 [place] [phone] PCP - General Internal Medicine - Primary Care 12/09/20 Abigail Díaz Automotive Airconditioning Mechanic 04/21/23 Carmelo Hendrickson Coordinator 12/01/23 documented as of this encounter
--- OUTSIDE RECORDS SUMMARY | 2024-01-02 06:09 | XMS_ITS | Encounter Summary ---
Author Organization [facility] Address [address] [place] [address] Care Team Providers Care Commercial Lines Account Assistant Name Role Phone Carrington Calderon MD Primary Care Provi anders Abigail Díaz Unavailable [phone] Carmelo Hendrickson Unavailable Unavailable Encounter Details Date Type Department Care Team (Late st Contact Info) Description 12/09/2023 Orders Only [facility] Radiology - Main [place] [address] [place], [place] [phone] Teresita Fitzpatrick MD [address] [place] [address] Social History Tobacco Use Types Packs/Day Years Used Date Smoking Tobacco: Every Day Cigarettes 0.5 13.1 Started: 11/10/2010 Smokeless Tobacco: Never Comments:06/13/20 actively try ing to quit about 5-8 cigs/day Alcohol Use Standard Drinks/Week Comments Yes 0 (1 standard drink = 0.6 oz pur e alcohol) rarely C Utilities Answer Date Recorded In the past 12 months has [employer], gas, oil, or water company threatened to [...] slept in a mcfp (including now)? No 06/14/2023 Housing Stability Vital [...] time in the past 12 m [facility], were you homeless or living in a mcfp (including now)? No 11/15/2023 Interpersonal Safety Answer Date Record ed How often does anyone, audrey waldron family, hit, punch or physically hurt you? 11/15/2023 How often does anyone, inclnikc waldron family, insult, scream, curse or threaten [...] [facility] Adult Primary Care - [address] [phone] Carrington Calderon MD [address] [phone] 02/27/2024 8:30 EDT Telemedicine [facility] Sleep Program - [address] 390231 Dwight Colbert [address] [place], [place] [address] 02/29/2024 10:30 EDT [facility] Radiology Nuclear Medicine and PET - [address] [address] 02/29/2024 14:30 EDT Appointment [facility] Radiology Nuclear Medicine and PET - [address] [address] 03/01/2024 8:[address] [facility] Radiology Nuclear Medicine and PET - [address] [address] 03/01/2024 9:30 EDT Appointment [facility] Radiology Nuclear Medicine and PET - [address] [address] documented as of this encounter Visit Diagnoses Not on filedocumented in this encounter Care Teams Commercial Lines Account Assistant Relationship Specialty Start Date End Date Carrington Calderon MD 1 [facility] 1 [place] [address] PCP - General Internal Medicine - Primary Care 12/09/20 Abigail Díaz International Controller 04/21/23 Carmelo Hendrickson Coordinator 12/01/23 documented as of this encounter
--- OUTSIDE RECORDS SUMMARY | 2024-01-02 06:09 | XMS_ITS | Encounter Summary ---
Author Organization [facility] Address [address] [place] [address] Care Team Providers Care Copy Director Name Role Phone Carrington Calderon MD Primary Care Provi anders Abigail Díaz Unavailable [phone] Carmelo Hendrickson Unavailable Unavailable Reason for Visit * Reason Comments Pre-op Exam Encounter Details Date Type Department Care Team (Late st Contact Info) Description 12/01/2023 15:45 EDT Office Visit [facility] Adult Primary Care - [place] 1 [place] [address] Nimisha Clifton NP 1 [employer] Level 1 [place] [address] Neuropathic diabetic ulcer of foot [...] Recorded In the past 12 months has [employer], gas, oil, or water company threatened [...] slept in a half-way (including now)? No 06/14/2023 Housing Stability Vital Sign Answer Norm e Recorded In the last 12 months, was t here a time when you were not able to pay the mortgage or rent on time? No 11/15/2023 In the past 12 months, how m any times have you moved where you were living? 1 11/15/2023 At any time in the past 12 m [facility], were you homeless or living in a half-way (including now)? No 11/15/2023 Interpersonal Safety Answer [...] exam. Has been followed closely by her county health officer for ongoing foot infection, the plan is [...] polyneuropathy, with long-term current use of insulin ([facility] ([facility]) ??? Gastroparesis ??? Neuropathic diabetic ulcer of foot ([facility]) ??? Tobacco use ??? Skin infection ??? [...] has a referral for therapy. ??? Diabetes ([facility]) A1c 10.3 on 11/28/2019 - poorly controlled ??? Diabetes mellitus, type 2 ([facility]) pt check blood sugars at home- X [...] occasionally ??? Neuropathic diabetic ulcer of foot ([facility]) 09/17/2021 ??? Obesity, unspecified ??? Osteomyelitis ([facility]) of left great toe-s/p amputation ??? Peripheral [...] 1 Each 1 Each intrauterine CONTINUOUSIUD/LARC Kamini Vega MD 1 Each at 08/05/23 1318 Allergies [...] [facility] Adult Primary Care - [address] [phone] Carrington Calderon MD [address] [phone] 02/27/2024 8:30 EDT Telemedicine [facility] Sleep Program - [address] [phone] Dwight Colbert [address] [place] [phone] 02/29/2024 10:30 EDT Appointment [facility] Radiology Nuclear Medicine and PET - [address] [id number] 02/29/2024 14:30 EDT Appointment [facility] Radiology Nuclear Medicine and PET - [address] [address] 03/01/2024 8:00 EDT [facility] Radiology Nuclear Medicine and PET - [address] [address] 03/01/2024 9:30 EDT [facility] Radiology Nuclear Medicine and PET - [address] [address] documented as of this encounter Visit Diagnoses Diagnosis Neuropathic diabetic ulcer of foot ([facility] Primary Type II or unspecified type diabetes mellitus with other specified manifestations, not stated as uncontrolled Pre-op exam Preoperative examination, unspecified documented in this encounter Care Teams Copy Director Relationship Specialty Start Date End Date Carrington Calderon MD 1 [facility] 1 [place] [address] PCP - General Internal Medicine - Primary Care 12/09/20 Abigail Díaz [employer] Supervisor 04/21/23 Carmelo Hendrickson Coordinator 12/01/23 documented as of this encounter
--- OUTSIDE RECORDS SUMMARY | 2024-01-02 06:09 | XMS_ITS | Encounter Summary ---
Author Organization [facility] Address [address] [place] [address] Care Team Providers Care Gynaecological Oncologist Name Role Phone Carrington Calderon MD Primary Care Provi anders JunJameyAbigail Williamson Unavailable Reason for Referral * Consult (Routine/Next Available) - Authorization Not Required Specialty Diagnoses / Procedures Referred By Kit goode Referred To Contact Sleep Medicine Diagnoses Primary insomnia Carrington Calderon MD [address] [phone] [facility] [address] [place] [address] Referral ID Status Reason Start Date Expiration Date Visits Requested Visits Authorized [id number] Authorization Not Required Specialty Services Required 11/11/2023 1 1 Question Answer Reason for referral Diffifulty initiating sleep Patient Type: Adult Comments Schedule via phone, no mychart * Referral (Routine/Next Available) - Specialty Report Received Specialty Diagnoses / Procedures Referred By Kit goode Referred To Contact Multidisciplinary Diagnoses Type 2 diabetes mellitus with diabetic polyneuropathy, with long-term current use of insulin ([facility]) Cyclic vomiting syndrome Carrington Calderon MD [address] [phone] [facility] Community Health Team [address] [facility] [place] [address] Referral ID Status Reason Start Date Expiration Date Visits Requested Visits Authorized [id number] Specialty Report Received Specialty Services Required 11/11/2023 1 1 Question Answer Reason for Request: disability paperwork * Referral (Routine/Next Available) - Authorization Not Required Specialty Diagnoses / Procedures Referred By Contac t Referred To Contact Neurology Diagnoses Migraine with aura and without status migrainosus, not intractable Cyclic vomiting syndrome Carrington Calderon MD [address] [phone] Kierra Almeida DO 1 [facility] 2 [place] [address] Referral ID Status Reason Start Date Expiration Date Visits Requested Visits Authorized [id number] Authorization Not Required Specialty Services Required 11/11/2023 1 1 Question Answer Reason for Request: cyclic vomiting and migraine Context of referral: Established Problem Reason for referral: Unsure Is headache attributable to an underlying condition? No Is patient actively missing work or school due to headache? Yes Is patient or lactating? No Has patient had a previous OUTSIDE of [facility] neurology evaluation, neuroimaging (MRI or CT of brain or spine) or electrodiagnostic testing (EMG, NCS, EEG)? No Reason for Visit * Reason Comments Follow-up Foot Pain Encounter Details Date Type Department Care Team (Late st Contact Info) Description 11/11/2023 13:00 EDT Office Visit [facility] Adult Primary Care - [place] 1 [place], [place] [address] Carrington Calderon MD [address] [place] [phone] Type 2 diabetes mellitus with diabetic polyneuropathy, with long-term current use of insulin (HCC-CMS) ([facility]) (Primary Dx); Migraine with aura and without [...] polyneuropathy, with long-term current use of insulin ([facility]) 8 units with breakfast, 15 units with lunch/dinner 30 mL 11 11/11/2023 documented in this encounter Progress Notes * Carrington Calderon MD - 11/11/2023 1300 EDT Images from the original note were not included. Primary Care Office Visit Assessment & Plan 1. Type 2 diabetes mellitus with diabetic polyneuropathy, with long-term current use of insulin ([facility]) ([facility]) Reviewed CGM data in detail. GMI reflects [...] CHOLESTEROL, TRIGLYCERIDES, HDL, LDL); Future - URINE [id number] RATIO (ACR); Future 2. Migraine with aura [...] 2 diabetes mellitus, limited to breakdown ofskin ([facility]) Continue care with her economics lecturer. We did not examine the foot today, [...] that she has continued to see her economics lecturer in [place] every couple of weeks. She has a persistent foot ulcer on the bottom of her left foot at around the level of the first metatarsal head. She expresses frustration around the fact that this has not healed. She has beentold by her economics lecturer that it would be hard or impossible [...] [facility] Adult Primary Care - [address] [phone] Carrington Calderon MD [address] [phone] 02/27/2024 8:30 EDT Telemedicine [facility] Sleep Program - [address] [phone] Dwight Colbert [address] [place] [phone] 02/29/2024 10:30 EDT Appointment [facility] Radiology Nuclear Medicine and PET - [address] [phone] 02/29/2024 14:30 EDT Appointment [facility] Radiology Nuclear Medicine and PET [address] [phone] 03/01/2024 8:00 EDT Appointment [facility] Radiology Nuclear Medicine and PET - [address] [phone] 03/01/2024 9:30 EDT Appointment [facility] Radiology Nuclear Medicine and PET - [address] [address] Scheduled Orders Name Type Priority Associated Diagnoses Orde r Schedule HEMOGLOBIN A1C Lab Routine Type 2 diabetes mellitus with diabetic polyneuropathy, with long-term current use of insulin ([facility]) ([facility]) Expected: 02/09/2024 (Approximate), Expires: 05/09/2024 COMPREHENSIVE METABOLIC PANEL (CMP) Lab Routine Type 2 diabetes mellitus with diabetic polyneuropathy, with long-term current use of insulin ([facility]) ([facility]) Expected: 02/09/2024 (Approximate), Expires: 05/09/2024 COMPLETE BLOOD COUNT AND DIFFERENTIAL Lab Routine Type 2 diabetes mellitus with diabetic polyneuropathy, with long-term current use of insulin ([facility]) ([facility]) Expected: 02/09/2024 (Approximate), Expires: 05/09/2024 LIPID PROFILE (INCLUDES CHOLESTEROL, TRIGLYCERIDES, HDL, LDL) Lab Routine Type 2 diabetes mellitus with diabetic polyneuropathy, with long-term current use of insulin ([facility]) ([facility]) Expected: 02/09/2024 (Approximate), Expires: 05/09/2024 URINE [id number] RATIO (ACR) Lab Routine Type 2 diabetes mellitus with diabetic polyneuropathy, with long-term current use of insulin ([facility]) ([facility]) Expected: 02/09/2024 (Approximate), Expires: 05/09/2024 THYROID-STIMULATING IMMUNOGLOBULIN (TSI), SERUM Lab Routine Subclinical hyperthyroidism Expected: 11/11/2023 (Approximate), Expires: 11/10/2024 Scheduled Referrals Name Type Priority Associated Diagnoses Order Schedule AMB CONS/FOLLOW UP HEADACHE Outpatient Referral Routine/Next Available Migraine with aura and without status migrainosus, not intractable Cyclic vomiting syndrome Expected: 12/11/2023 (Approximate), Expires: 11/10/2024 AMB CONS/FOLLOW UP [facility]erral Routine/Next Available Type 2 diabetes mellitus with diabetic polyneuropathy, with long-term current use of insulin ([facility]) ([facility]) Cyclic vomiting syndrome Expected: 11/18/2023 (Approximate), Expires: 11/10/2024 BEHAVIORAL SLEEP MEDICINE CONSULTATION Outpatient Referral Routine/Next Available Primary insomnia Expected: 12/11/2023 (Approximate), Expires: 11/10/2024 documented as of this encounter Results * HIV 1/2 ANTIGEN AND ANTIBODY, 4TH GENERATION (11/11/2023 13:53 EDT) HIV 1 and 2 Antibody/p24 Antigen, 4th Generation Negative Negative 11/11/2023 17:04 EDT [facility] Comment:If acute HIV-1 infec tion is suspected in a high risk patient, submit plasma specimen for HIV-1 RNA quantitation test. Blood VENOUS BLOOD / Unknown Venipuncture / Unknown 11/11/2023 13:53 EDT 11/11/2023 13:55 EDT Narrative [facility] - 11/11/2023 17:04 EDT Fourth Generation assay performed on the Sarsysaur XPT. Carrington Calderon MD IMMUNOLOGY AND SEROLOGY ORDERABLES Performing Organization Address [facility]/ZIP Co de Phone Number [facility] [address] [place] [address] * HEPATITIS C AB W REFLEX TO HCV RNA BY PCR (11/11/2023 13:53 EDT) Pathologist [facility] Hep C Antibody Negative Negative 11/11/2023 17:03 EDT [facility] Blood VENOUS BLOOD / Unknown Venipuncture / Unknown 11/11/2023 13:53 EDT 11/11/2023 13:55 EDT Carrington Calderon MD CHEMISTRY & BLOOD GAS ORDERABLES [facility] [address] [place], [place] [phone] * HEPATITIS B PROFILE (11/11/2023 13:53 EDT) Hep B Surface Ag Negative Negative 11/11/19 17:04 EDT [facility] Hep B Surface Ab, Quantitative <3.1 See Note mIU/mL 11/11/2023 17:04 EDT [facility] Comment: Reference Range for Hep B Surface Ab, Quant: Positive: >= 10.0 mIU/mL Negative: ??< 10.0 mIU/mL Patient is presumed to not be immune to infection with Hepatitis B Virus. Hep B Surface Ab, Qualitative Negative See Note 11/11/2023 17:04 EDT [facility] Comment: Reference Range for Hep B Surface Ab, Qual: Unvaccinated: ??Negative Vaccinated: ??Positive Hepatitis B Core Ab, Total Negative Negative 11/11/2023 17:04 EDT [facility] Blood VENOUS BLOOD / Unknown Venipuncture / Unknown 11/11/2023 13:53 EDT 11/11/2023 13:55 EDT Carrington Calderon MD CHEMISTRY & BLOOD GAS ORDERABLES Performing Organization Address [facility]/ZIP Co de Phone Number [facility] [address] [place] [address] * (ABNORMAL) THYROID CASCADE (11/11/2023 13:53 EDT) TSH 0.37(L) 0.47 - 4.68 mIU/L 11/11/2023 15:38 EDT [facility] Blood VENOUS BLOOD / Unknown Venipuncture / Unknown 11/11/2023 13:53 EDT 11/11/2023 13:55 EDT Narrative [facility] - 11/11/2023 15:38 EDT NOTE: The results of this assay can be falsely lowered due to the consumption of Biotin. Carrington Calderon MD CHEMISTRY & BLOOD GAS ORDERABLES Performing Organization Address [facility]/ZIP Co de Phone Number [facility] [address] [place] [address] documented in this encounter Visit Diagnoses Diagnosis Type 2 diabetes mellitus with diabetic polyneuropathy, with long-term current use of insulin ([facility]) (HCC)- Primary Migraine with aura and without status migrainosus, not intractable Migraine with aura, without mention of intractable migraine without mention of status migrainosus Anxiety and depression Dysthymic disorder Cyclic vomiting syndrome Persistent vomiting Diabetic ulcer of left midfoot associated with type 2 diabetes mellitus, limited to breakdown of skin ([facility]) Primary insomnia Persistent disorder of initiating or [...] polyneuropathy, with long-term current use of insulin ([facility]) 8 units with breakfast, 12 units with lunch/dinner 06/27/2023 11/11/2023 documented as of this encounter Care Teams Gynaecological Oncologist Relationship Specialty Start Date End Date Carrington Calderon MD 1 [facility] Level 1 [place] [phone] PCP - General Internal Medicine - Primary Care 12/09/20 Abigail Díaz Gamero[employer] Technician 04/21/23 documented as of this encounter
--- OUTSIDE RECORDS SUMMARY | 2024-01-02 06:09 | XMS_ITS | Encounter Summary ---
Author Organization [facility] Address [address] [place] [address] Care Team Providers Care Assault Amphibious Vehicle Officer Name Role Phone Carrington Calderon MD Primary Care Provi anders Abigail Díaz Unavailable Carmelo Hendrickson Unavailable Unavailable Reason for Visit * Reason Onset Date Comments Medications Refill 12/20/2023 Encounter Details Date Type Department Care Team (Late st Contact Info) Description 12/20/2023 Refill [facility] Adult Primary Care - [address] [phone] Carrington Calderon MD 1 [facility] Level 1 [place] [phone] Medications Refill Social History Tobacco Use Types Packs/Day Years Used Date Smoking Tobacco: Every Day Cigarettes 0.5 13.1 Started: 11/10/2010 Smokeless Tobacco: Never Comments:06/13/20 actively try ing to quit about 5-8 cigs/day Alcohol Use Standard Drinks/Week Comments Yes 0 (1 standard drink = 0.6 oz pur e alcohol) rarely [facility] Utilities Answer Date Recorded In the past 12 months has e electric, gas, oil, or water company [...] any time in the past 12 m [facility], were you homeless or living in [...] Daily Max: 200 mg 30 Tablet 5 12/20/2023 LORazepam (ATIVAN) 0.5 mg tabletIndications:Anxiety Take 1 Tablet by mouth daily as needed for Anxiety. Daily Max: 0.5 mg 30 Tablet 3 12/20/2023 documented in this encounter Miscellaneous Notes * Telephone Encounter - Berenice Mahan - 12/20/2023 0814 EDT Medication(s) Requested/ Last Ordered: Tramadol/ 06.27.23 Lorazepam/ 1.22.24 Preferred Pharmacy: [facility] [address] [address] - [address] [place] [address] Is patient out of medication? Yes Last Visit Date with Ordering Provider: 12/01/2023 Next Non-Acute Visit Date Scheduled with Care Team: 02/21/2024 Berenice Mahan 12/20/2023 8:26 documented in this encounter Plan of Treatment Upcoming Encounters Date Type Department Care Team (Late st Contact Info) Description 02/21/2024 9:45 EDT Office Visit [facility] Adult Primary Care - [address] [phone] Carrington Calderon MD [address] [phone] 02/27/2024 8:30 EDT Telemedicine [facility] Sleep Program - [address] [phone] Dwight Colbert [address] [place] [phone] 02/29/2024 10:30 EDT Appointment [facility] Radiology Nuclear Medicine and [address] [phone] 02/29/2024 14:30 EDT Appointment [facility] Radiology Nuclear Medicine and PET [address] [phone] 03/01/2024 8:00 EDT Appointment [facility] Radiology Nuclear Medicine and PET [address] [phone] 03/01/2024 9:30 EDT Appointment [facility] Radiology Nuclear Medicine and PET [address] [phone] documented as of this encounter Visit Diagnoses Diagnosis Anxiety Anxiety state, unspecified Chronic midline low back pain without sciatica documented in this encounter Discontinued Medications Medication Sig Discontinue Reason Start Date End Da te LORazepam (ATIVAN) 0.5 mg tabletIndications:Anxiet y Take 1 Tablet by mouth daily as needed for Anxiety. Daily Max: 0.5 mg Reorder 06/27/2023 12/20/2023 traMADol (ULTRAM) 50 mg tabletIndications:Chroni c midline low back pain without sciatica Take 1 Tablet by mouth every 6 hours as needed for Pain. Daily Max: 200 mg Reorder 06/27/2023 12/20/2023 documented as of this encounter Care Teams Assault Amphibious Vehicle Officer Relationship Specialty Start Date End Date Carrington Calderon MD 1 [facility] 1 [place] [phone] PCP - General Internal Medicine - Primary Care 12/09/20 Abigail Díaz Salesforce Developer 04/21/23 Carmelo Hendrickson Coordinator 12/01/23 documented as of this encounter
--- OUTSIDE RECORDS SUMMARY | 2024-01-02 06:09 | XMS_ITS | Encounter Summary ---
Author Organization [facility] Address [address] [place] [address] Care Team Providers Care Patient Flow Coordinator Name Role Phone Carrington Calderon MD Primary Care Provi anders Abigail Díaz Unavailable Carmelo Hendrickson Unavailable Unavailable Encounter Details Date Type Department Care Team (Late st Contact Info) Description 12/02/2023 Patient Outreach [facility] Adult Primary Care - [place] [address] [place], [place] [phone] Carmelo Hendrickson Social History Tobacco Use Types Packs/Day Years Used Date Smoking Tobacco: Every Day Cigarettes 0.5 13.1 Started: 11/10/2010 Smokeless Tobacco: Never Comments:06/13/20 actively try ing to quit about 5-8 cigs/day Alcohol Use Standard Drinks/Week Comments Yes 0 (1 standard drink = 0.6 oz pur e alcohol) rarely [facility] Utilities Answer Date Recorded In the past 12 months has [employer], gas, oil, or water [employer] threatened to shut off services in your [...] time in the past 12 m [facility], were you homeless or living in [...] * Carmelo Hendrickson - 12/02/2023 1238 EDT [facility] City Carrier Assistant Initial Note Referred by: Abigail Díaz [facility] PCP: Carrington Calderno Encounter type: Telephone Reason for Referral: [employer] and other economic programs Notes: This City Carrier Assistant (RC) called Stella and talked to her about signing up for [employer], as well as about health insurance. Stella reports a change in her family's employment situation and this RC walked her through how to sign up for health insurance through the [place] [employer] website given a potential special enrollment period [...] 02/21/2024 9:45 EDT Office Visit [facility] Adult Primary Care - [address] [phone] Carrington Calderon MD [address] [phone] 02/27/2024 8:30 EDT Telemedicine [facility] Sleep Program [address] [phone] Dwight Colbert [address] [place] [phone] 02/29/2024 10:30 EDT Appointment [facility] Radiology Nuclear Medicine and PET [address] [id number] 02/29/2024 14:30 EDT Appointment [facility] Radiology Nuclear Medicine and PET [address] [id number] 03/01/2024 8:00 EDT Appointment [facility] Radiology Nuclear Medicine and PET [address] [phone] 03/01/2024 9:30 EDT Appointment [facility] Radiology Nuclear Medicine and PET [address] [phone] documented as of this encounter Visit Diagnoses Not on filedocumented in this encounter Care Teams Patient Flow Coordinator Relationship Specialty Start Date End Date Carrington Calderon MD [address] [phone] PCP - General Internal Medicine - Primary Care 12/09/20 Abigail Díaz Blasting Entryman 04/21/23 Carmelo Hendrickson Coordinator 12/01/23 documented as of this encounter
--- OUTSIDE RECORDS SUMMARY | 2024-01-02 06:09 | XMS_ITS | Clinical Summary ---
Author Organization [facility] Address [address] [place] [address] Care Team Providers Care Business Taxes Specialist Name Role Phone Carrington Calderon MD Primary Care Provi anders Abigail Díaz Unavailable [phone] Carmelo Hendrickson Unavailable Unavailable Allergies Active Allergy [...] of 5 days (10 doses) 10 Tablet 3 Active DULoxetine 40 mg capsule,delayed release(DR/EC)Indic ations:Anxiety and depression Take 40 mg by mouth daily. 30 Capsule 3 Active Blood-Glucose Sensor (DEXCOM G6 SENSOR) deviceIndications:T ype 2 diabetes mellitus with diabetic polyneuropathy, with long-term current use of insulin ([facility]) Inject 1 Each into the skin every 10 days. 9 Each 4 3 Active ondansetron (ZOFRAN-ODT) 4 mg disintegrating tabletIndications:C yclic vomiting syndrome Take 1 Tablet by mouth every 8 hours as needed for Nausea. 30 Tablet 4 Active insulin glargine (LANTUS SOLOSTAR/SEMGLEE) 100 unit/mL (3 mL) injection penIndications:Type 2 diabetes mellitus with diabetic polyneuropathy, with long-term current use of insulin ([facility]) Inject 44 Units into the skin at bedtime. 36 mL 4 Active empagliflozin (JARDIANCE) 25 mg tabletIndications:T ype 2 diabetes mellitus with diabetic polyneuropathy, with long-term current use of insulin ([facility]) Take 1 Tablet by mouth daily. 90 Tablet 4 4 Active SITagliptin phosphate (JANUVIA) 100 mg tabletIndications:T ype 2 diabetes mellitus with diabetic polyneuropathy, with long-term current use of insulin ([facility]) Take 1 Tablet by mouth daily. 90 Tablet 4 4 Active metoclopramide HCl (REGLAN) 10 mg tablet Take 1 Tablet by mouth 3 times daily before meals. Starting 3 days before menses and stopping after end of period 270 Tablet 3 4 Active gabapentin (NEURONTIN) 300 mg capsuleIndications: Diabetic polyneuropathy associated with type 2 diabetes mellitus ([facility]) Take 1 Capsule by mouth every morning AND 4 Capsules at bedtime. 450 Capsule 4 4 Active SUMAtriptan (IMITREX) 20 mg/actuation nasal spray USE 1 SPRAY(S) INTO RIGHT NOSTRIL NEEDED FOR MIGRAINE HEADACHE 6 Each 1 4 Active Blood-Glucose Transmitter (DEXCOM G6 TRANSMITTER) deviceIndications:T ype 2 diabetes mellitus with diabetic polyneuropathy, with long-term current use of insulin ([facility]) Inject 1 Each into the skin every 3 months. 1 Each 4 4 Active HUMALOG KWIKPEN INSULIN 100 unit/mL injectable penIndications:Type 2 diabetes mellitus with diabetic polyneuropathy, with long-term current use of insulin ([facility]) 8 units with breakfast, 15 [...] 06/19 Patient has given permission for [facility] to verbally discuss the following [...] Confirmed patient has Traditional Medicaid now. 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 Told arthritis in spine in teen yrs. Anxiety and depression 05/12/2010 Overview: - Onset teen yrs. Treated with citalopram in approx 2012 - had SI, treated at [place]. Marijuana prn to help with stress/anxiety sx -Describes paradoxical effect of citalopram, reportedly resulting in the above admission at [place] Migraine with aura and witho ut status [...] Overview: Added automatically from request for surgery [id number] of unknown anatomic location 06/20/2020 06/27/2020 Overview: Clinical Group: [facility] Patient HPI: Cristy Luo is an 35 y.o. , patient with history of ectopic and positive HCG during post operative period for unrelated procedure. Reported cramping to [facility] nurse on 06/19. LMP: End of the first week of May Rh status: B- Rhogam: Given by [facility] 06/20/20 Desired : Unknown Ectopic risk factors: hx of ectopic pregnancies and five D&C's . 10/2018: Interstitial treated w/ MTX. HCGs Lab Results Component Value Date HCGPREG 49 (H) 06/25/2020 HCGPREG 111 (H) 06/23/2020 HCGPREG 152 (H) 06/21/2020 HCGPREG 108 (H) 06/19/2020 HCGPREG 2,954 (H) 10/11/2019 HCGPREG 707 (H) 09/02/2019 HCGPREG 316 (H) 08/31/2019 Plan: 06/20/2020: US today and given RhoGham by [facility]. Place in BB per MD Esteban Cade. [...] repeat HCG 06/25 & U/S 06/25 in [facility] clinic. MARCELO Dale 06/25/20: U/S results - [...] Overview: Added automatically from request for surgery [id number] Type 2 diabetes mellitus wit h left diabetic foot ulcer ([facility]) 05/03/2020 03/27/2021 Osteomyelitis of great toe o f left foot ([facility]) 03/12/2020 06/11/2021 Diabetic foot ulcer associat ed with diabetes mellitus due to underlying condition ([facility]) 03/07/2020 03/27/2021 Diabetic foot infection ([facility]) 03/06/2020 06/11/2021 Diabetic foot ulcer ([facility]) 03/06/2020 06/11/2021 Cellulitis of great toe of left foot 11/26/2019 06/11/2021 Encounter for sterilization 11/20/2019 06/20/2020 Overview: Added automatically from request for surgery [id number] Missed 10/12/2019 10/15/2019 Overview: Clinical Group: ED [...] PCR results found No results found for: [id number] HgA1c [ ] 1T pending [ ] [...] visit. Ectopic 10/25/2018 10/12/2019 Overview: Clinical Group: M (eg. COGS, ED patient, UOM, MFM, EDIS) [...] Quant Beta HCG = 1652.8 mIU/ml @ [facility] 11/10/2018: Quant Beta HCG, Preg 1,117 mIU/ml* (Ref range: <5 mIU/ml) 11/21/18: Quant Beta HCG 299.98 mIU/mL at [facility] (ref range <2.39) 12/03/18: Quant Beta HCG, 41.94 mIU/ml at [facility] 12/13/18: Quant Beta HCG, 13.63 mIU/ml at [facility] Plan: 10/24/18: per Dr. Coronado repeat [...] go to lab 11/08. States will go 11/09/18.[facility] 11/10/18: Plan per Dr. Almeida, repeat HCG in 1 week (11/17). Results & plan reviewed with Cristy. MARCELO Dale 11/21/18 Pt plans on going to [facility] today. [facility] 11/21/18. BHCG 299.98. Repeat in 1 week. Pt would like to go 11/27/18([facility]) as off from work [facility] 12/01/18: LVM for pt to repeat lab work kimberly. This was the fourth call. JON, MARCELO 12/03/18: Per Dr. Kenyon, repeat HCG 12/10. LVM for pt with plan (count as 1st attempt). MARCELO WEBB 12/11/18: LVM (second call) re: HCG due. MARCELO Dale 12/12/18: Spoke with Cristy, she will get HCG drawn 12/12 am. NOS MFM consult, will be rescheduled. MARCELO Dale 12/15/18: Plan per Dr. Gill repeat HCG in one week (12/20), MFM CON 03/02/19. LVM for Cristy with plan. MARCELO Dale 12/25/18: Per [facility] [place] last HCG was 12/13, NOS for 12/20, LVM X3, letter sent, will remove from [employer] Book.MARCELO Dale Spontaneous miscarriage 09/04/201510/05 Overview: 02/18, 08/19. Followed by Dr. 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) - intolerant of MFM (diarrhea) Encounters Date Type Department Care Team Description 12/20/2023 Refill [facility] Adult Primary Care [facility] [address], [place] [phone] Carrington Calderon MD Medications Refill 12/14/2023 Patient Outreach [facility] Primary Care [facility] [address] [place], [place] [phone] Carmelo Hendrickson 12/09/2023 Orders Only [facility] Radiology - Main [address] [phone] Teresita Fitzpatrick MD 12/07/2023 Patient Outreach [address] [address] Carmelo Hendrickson 12/02/2023 Patient Outreach [address] [address] Carmelo Hendrickson 12/02/2023 Patient Outreach [address] [address] Abigail Díaz 12/01/2023 15:45 EDT Office Visit [address] [address] Nimisha Clifton NP Neuropathic diabetic ulcer of foot (HCC-CMS) (Primary Dx); Pre-op exam 12/01/2023 Patient Outreach [address] [address] Carmelo Hendrickson 11/22/[address] [address] Carrington Calderon MD Results 11/18/2023 Community Health Team [address] [address] Care Management, [facility] 11/16/2023 11:00 EDT Telemedicine [facility] Gastroenterology - Main [address] [address] Scott Arzate MD Cyclic vomiting syndrome (Primary Dx) 11/15/2023 Patient Outreach [address] [address] Abigail Díaz Encounter for screening involving social determinants of health (SDoH) (Primary Dx) 11/11/2023 13:30 EDT Phlebotomy Only [facility] Laboratory Services - [address] [address] Waiter/Waitress Cock[employer] Lounge, [facility] Abnormal thyroid blood test; Encounter for screening for other viral diseases 11/11/2023 13:00 EDT Office Visit [facility] Primary Care - [address] [address] Carrington Calderon MD Type 2 diabetes mellitus with diabetic polyneuropathy, with long-term current use of insulin (HCC-CMS) ([facility]) (Primary Dx); Migraine with aura and without status migrainosus, not intractable; Anxiety and depression; Cyclic vomiting syndrome; Diabetic ulcer of left midfoot associated with type 2 diabetes mellitus, limited to breakdown of skin ([facility]); Primary insomnia; Abnormal thyroid blood test; Encounter [...] in OBGYN History of general anesthesia Osteomyelitis ([facility]) of left great toe-s/p amputation Nausea & vomiting occasionally Diabetes ([facility]) A1c 10.3 on - poorly controlled Hx of ectopic 06/20/2020 Hx of migraines Does not exercise 06/13/2020 due to infecte d toe- typically on a normal basis- walk 3 dogs and hiking- climbing stairs is not an issue. Chest pain r/t anxiety Productive cough pt currently qu itting smoking- clear secretions. Diabetes mellitus, type 2 ([facility]) pt check blood sugars at home- X [...] Gastroparesis Neuropathic diabetic ulcer o f foot ([facility]) 09/17/2021 Family History Medical History Relation Comments [...] = 0.6 oz pur e alcohol) rarely [facility] Utilities Answer Date Recorded In the past 12 months has [employer], gas, oil, or water company threatened to [...] any time in the past 12 m [facility], were you homeless or living in a care home (including now)? No 11/15/2023 Interpersonal Safety Answer Date Record ed How often does anyone, inclu chivo family, hit, punch or physically hurt you? 11/15/2023 How often does anyone, inclu chivo family, [...] ex ; twin confirmed by US at [facility]; no medical or surgical tx 01/2015 SAB 9w0 d SAB Comments:D&C at [facility]; f irst current 08/2015 SAB 10w 0d SAB Comments:D&C at [facility]; 2 nd with current 02/2017 SAB 6w0 d SAB Comments:D&C at [facility]; t hird with current 06/2017 SAB 6w0 d SAB Comments:D&C at [facility]; nonviable seen on US; fourth with current 01/2018 SAB 6w0 d SAB Comments:D&C at [facility] after nonviable on US; had to have repeat D&C in April for retained POCs 10/2018 Ectopic 10w 4d ECTOPIC Comments:interstitial diagnosed at [facility]; given MTX 10/26/1810/2019 SAB Comments:D+C Last Filed [...] Visit [facility] Adult Primary Care - [address] [phone] Carrington Calderon MD [address] [phone] 02/27/2024 8:30 EDT Telemedicine [facility] Sleep Program - [address] [phone] Dwight Colbert [address] [place] [phone] 02/29/2024 10:30 EDT Appointment [facility] Radiology Nuclear Medicine and PET [address] [phone] 02/29/2024 14:30 EDT Appointment [facility] Radiology Nuclear Medicine and PET [address] [phone] 03/01/2024 8:00 EDT Appointment [facility] Radiology Nuclear Medicine and PET [address] [phone] 03/01/2024 9:30 EDT Appointment [facility] Radiology Nuclear Medicine and PET [address] [phone] Health Maintenance Due Date Last Done Comments [...] with long-term current use of insulin ([facility]) LIPID PROFILE (INCLUDES CHOLESTEROL, TRIGLYCERIDES, HDL, LDL) Routine 11/28/2019 15:56 EDT Type 2 diabetes mellitus with other specified complication, unspecified whether intermodal customer service insulin use ([facility]) URINE [id number] NE RATIO (ACR) Routine 11/28/2019 15:56 EDT Type 2 diabetes mellitus with other specified complication, unspecified whether intermodal customer service insulin use ([facility]) from Last 3 Months or Most Recently Relevant to Health Maintenance Results * (ABNORMAL) THYROID CASCADE (11/11/2023 13:53 EDT) TSH 0.37(L) 0.47 - 4.68 mIU/L 11/11/2023 15:38 EDT [facility] Blood VENOUS BLOOD / Unknown Venipuncture / Unknown 11/11/2023 13:53 EDT 11/11/2023 13:55 EDT Narrative [facility] - 11/11/2023 15:38 EDT NOTE: The results of this assay can be falsely lowered due to the consumption of Biotin. Carrington Calderon MD CHEMISTRY & BLOOD GAS ORDERABLES [facility] [address] [place] [address] * HEPATITIS C AB W REFLEX TO HCV RNA BY PCR (11/11/2023 13:53 EDT) Hep C Antibody Negative Negative 11/11/2023 17:03 EDT [facility] Blood VENOUS BLOOD / Unknown Venipuncture / Unknown 11/11/2023 13:53 EDT 11/11/2023 13:55 EDT Carrington Calderon MD CHEMISTRY & BLOOD GAS ORDERABLES [facility] [address] [place], [place] [phone] * HEPATITIS B PROFILE (11/11/2023 13:53 EDT) Pathologist [facility] Hep B Surface Ag Negative Negative 11/11/19 17:04 EDT [facility] Hep B Surface Ab, Quantitative <3.1 See Note mIU/mL 11/11/2023 17:04 EDT [facility] Comment: Reference Range for Hep B Surface Ab, Quant: Positive: >= 10.0 mIU/mL Negative: ??< 10.0 mIU/mL Patient is presumed to not be immune to infection with Hepatitis B Virus. Hep B Surface Ab, Qualitative Negative See Note 11/11/2023 17:04 EDT [facility] Comment: Reference Range for Hep B Surface Ab, Qual: Unvaccinated: ??Negative Vaccinated: ??Positive Hepatitis B Core Ab, Total Negative Negative 11/11/2023 17:04 EDT [facility] Blood VENOUS BLOOD / Unknown Venipuncture / Unknown 11/11/2023 13:53 EDT 11/11/2023 13:55 EDT Carrington Calderon MD CHEMISTRY & BLOOD GAS ORDERABLES [facility] [address] [place], [place] [phone] * HIV 1/2 ANTIGEN AND ANTIBODY, 4TH GENERATION (11/11/2023 13:53 EDT) Pathologist [facility] HIV 1 and 2 Antibody/p24 Antigen, 4th Generation Negative Negative 11/11/2023 17:04 EDT [facility] Comment:If acute HIV-1 infec tion is suspected in a high risk patient, submit plasma specimen for HIV-1 RNA quantitation test. Blood VENOUS BLOOD / Unknown Venipuncture / Unknown 11/11/2023 13:53 EDT 11/11/2023 13:55 EDT Narrative [facility] - 11/11/2023 17:04 EDT Fourth Generation assay performed on the Siemens Voxieaur XPT. Carrington Calderon MD IMMUNOLOGY AND SEROLOGY ORDERABLES [facility] [address] [place] [id number] * T3, TOTAL (11/11/2023 13:53 EDT) T3, Total 137 97 - 169 ng/dL 11/11/2023 17:27 EDT [facility] Blood VENOUS BLOOD / Unknown Venipuncture / Unknown 11/11/2023 13:53 EDT 11/11/2023 13:55 EDT Carrington Calderon MD CHEMISTRY & BLOOD GAS ORDERABLES Performing Organization Address City/[facility]/ZIP Co de Phone Number [facility] [address] [place] [phone] * T4 FREE (11/11/2023 13:53 EDT) T4, Free 1.1 0.8 - 2.2 ng/dL 11/11/2023 16:08 EDT [facility] Blood VENOUS BLOOD / Unknown Venipuncture / Unknown 11/11/2023 13:53 EDT 11/11/2023 13:55 EDT Carrington Calderon MD CHEMISTRY & BLOOD GAS ORDERABLES [facility] [address] [place] [phone] * PAP TEST (06/27/2023 16:00 EST) Specimens A. Cervix and/or Endocervix , ThinPrep Imaging System with Manual Evaluation 07/13/2023 16:[address] [facility] Specimen Adequacy Satisfactory for Evaluation - transformation zone component absent 07/13/2023 16:[address] [facility] General Categorization Negative for intraepithelial lesion or malignancy 07/13/2023 16:[address] [facility] Attestation . 07/13/2023 16:[address] [facility] at 1625 Clinical History screening 07/13/19 24 16:[address] [facility] HPV The result for the Human Papillomavirus (HPV) Detection-High Risk Types is Negative. No E6 or E7 mRNA is detected from HPV types 16,18,31,33,35,39 ,45,51,52,56,58,5 9,66, and 68 by cell attendant helper mediated amplification.Lorena ting was performed on specimen [id number] and was resulted on 07/13/2023 1625 EST by JANET, LAB INSTRUMENT RESULTS IN 07/13/2023 16:[address] [facility] Performing Lab [facility] 07/13/2023 16:[address] [facility] Scanned Images 07/13/2023 16:[address] [facility] Pap Test CERVIX UTERI STRUCTURE / Unknown 06/27/2023 16:00 EST 06/27/2023 16:00 EST Carrington Calderon MD PATHOLOGY O RDERABLES [facility] [address] [place] [address] * (ABNORMAL) HEMOGLOBIN A1C (03/14/2023 15:19 EDT) Hemoglobin A1c 8.3(H) <5.7 % 03/14/2023 22:02 EDT [facility] Comment: Glycemic Status References: Normal: ??<5.7% Pre-Diabetes: ??5.7% - 6.4% Diagnostic of Diabetes: ??> or = 6.5% (if confirmed) Est Avg Glucose 192 mg/dL 3 22:02 EDT [facility] Comment:The eAG represents t he A1c result expressed as average glucose in mg/dL. Blood VENOUS BLOOD / Unknown Venipuncture / Unknown 03/14/2023 15:19 EDT 03/14/2023 15:19 EDT Carrington Calderon MD CHEMISTRY & BLOOD GAS ORDERABLES Performing Organization Address [facility] Co de Phone Number [facility] [address] [place] [address] * (ABNORMAL) ALBUMIN, URINE (11/28/2019 15:56 EDT) Albumin, Urine 11.3 See Note mg/dL 2019 16:47 EDT [facility] Comment: NOTE: Reference range not established Creatinine, Urine 143.1 See Note mg/dL 11/28/2019 16:47 T [facility] Comment: NOTE: Reference range not established Lab Urine Albumin to Creatinine Ratio 79(H) <30 ug/mg Creatinine 11/28/2019 16:47 T [facility] Comment: Urine Albumin/Creatinine Ratio: Normal: <30 ug/mg Creatinine Moderately increased albuminuria: 30-300 ug/mg Creatinine Severley increased albuminuria: >300 ug/mg Creatinine Urine URINE SPECIMEN OBTAINED BY CLEAN CATCH PROCEDURE / Unknown Urine Collect / Unknown 11/28/2019 15:56 EDT 11/28/2019 15:56 EDT Tonja Alejandro PA-C CHEMISTRY & BLOOD GAS ORDERABLES Performing Organization Address [facility] Co de Phone Number [facility] [address] [place] [address] * LIPID PROFILE (INCLUDES CHOLESTEROL, TRIGLYCERIDES, HDL, LDL) (11/28/2019 15:56 EDT) Cholesterol 179 See Note mg/dL 11/28/2019 17:12 [facility] Comment: Acceptable: ?<200 mg/dL Borderline High: 200-239 mg/dL High: ?> or = 240 mg/dL HDL 38 See Note mg/dL 11/28/2019 17:12 [facility] Comment: Low: ? <40 mg/dL Normal: ??40-60 mg/dL High: ?>60 mg/dL LDL, Calculated 61 See Note mg/dL 11/28/2019 17:12 [facility] Comment: Optimal: ? <100 mg/dL Near Optimal: ?100-129 mg/dL Borderline High: 130-159 mg/dL High: ?160-189 mg/dL Very High: ? > or = 190 mg/dL Triglyceride 398 See Note mg/dL 11/28/2019 17:12 [facility] Comment: Normal: ? <150 mg/dL Borderline High: ??150 - 199 mg/dL High: ? 200 - 499 mg/dL Very High: ?> or = 500 mg/dL Chol/HDL Ratio 4.7 See Note 11/28/2019 17:12 [facility] Comment: No reference range has been established for CHOL/HDL ratio. Non HDL Cholesterol 141 See Note mg/dL 11/28/2019 17:12 [facility] Comment: Desirable: ?<130 mg/dL Borderline High: ??130-159 mg/dL High: ? 160-189 mg/dL Very High: ?> or = 190 mg/dL Blood VENOUS BLOOD / Unknown Venipuncture / Unknown 11/28/2019 15:56 EDT 11/28/2019 15:56 EDT Tonja Alejandro PA-C CHEMISTRY & BLOOD GAS ORDERABLES [facility] [address] [place] [address] from Last 3 Months or Most Recently Relevant to Health Maintenance Advance Directives For more information, please contact: [phone] Documents on File Type Date Recorded Patient Frame Coverer Expl anation Advance Directive 11/23/2022 10:36 Appt [...] participated in the discussion? Patient Care Teams Business Taxes Specialist Relationship Specialty Start Date End Date Carrington Calderon MD 1 [facility] [address] [place] [phone] PCP - General Internal Medicine - Primary Care 12/09/20 Abigail Díaz Radio Intelligence Operator 04/21/23 Carmelo Hendrickson Coordinator 12/01/23
--- OUTSIDE RECORDS SUMMARY | 2024-01-02 06:09 | XMS_ITS | Encounter Summary ---
Author Organization [facility] Address [address] [place] [address] Care Team Providers Care Shoulder Pad Molder Name Role Phone Carrington Calderon MD Primary Care Provi anders Abigail Díaz Unavailable Carmelo Hendrickson Unavailable Unavailable Reason for Referral * Radiology Services (Routine/Next Available) - Receiving Office to Obtain Authorization Specialty Diagnoses / Procedures Referred By Contac t Referred To Contact Nuclear Medicine Diagnoses Subclinical hyperthyroidism Procedures NM THYROID UPTAKE AND SCAN Carrington Calderon MD [address] [phone] [facility] Referral ID Status Reason Start Date Expiration Date Visits Requested Visits Authorized [id number] Receiving Office to Obtain Authorization 12/06/2023 1 1 Reason for Visit * Reason Onset Date Comments Results 11/22/2023 Encounter Details Date Type Department Care Team (Late st Contact Info) Description 11/22/2023 Telephone [facility] Adult Primary Care - [address] [address] Carrington Calderon MD [address] [phone] Results Social History Tobacco Use Types Packs/Day Years Used Date Smoking Tobacco: Every Day Cigarettes 0.5 13.1 Started: 11/10/2010 Smokeless Tobacco: Never Comments:06/13/20 actively try ing to quit about 5-8 cigs/day Alcohol Use Standard Drinks/Week Comments Yes 0 (1 standard drink = 0.6 oz pur e alcohol) rarely [facility] Utilities Answer Date Recorded In the [facility] - [address] [phone] Carrington Calderon MD [address] [phone] 02/27/2024 8:30 EDT Telemedicine [facility] Sleep Program - [address] [phone] Dwight Colbert [address] [place] [address] [phone] 02/29/2024 10:30 EDT Appointment [facility] Radiology Nuclear Medicine and PET [address] [phone] 02/29/2024 14:30 EDT Appointment [facility] Radiology Nuclear Medicine and PET [address] [phone] 03/01/2024 8:00 EDT Appointment [facility] Radiology Nuclear Medicine and PET [address] [phone] 03/01/2024 9:30 EDT Appointment [facility] Radiology Nuclear Medicine and PET [address] [phone] Scheduled Orders Name Type Priority Associated Diagnoses Orde r Schedule NM THYROID UPTAKE AND SCAN Imaging Routine Subclinical hyperthyroidism Expected: 12/13/2023 (Approximate), Expires: 06/07/2025 documented as of this encounter Visit Diagnoses Diagnosis Subclinical hyperthyroidism- Primary Thyrotoxicosis without mention of goiter or other cause, without mention of thyrotoxic crisis or storm documented in this encounter Care Teams Shoulder Pad Molder Relationship Specialty Start Date End Date Carrington Calderon MD 1 [facility] 1 [place] [phone] PCP - General Internal Medicine - Primary Care 12/09/20 Abigail Díaz Streetcar Starter 04/21/23 Carmelo Hendrickson Coordinator 12/01/23 documented as of this encounter
--- OUTSIDE RECORDS SUMMARY | 2024-01-02 06:09 | XMS_ITS | Encounter Summary ---
Author Organization [facility] Address [address] [place] [address] Care Team Providers Care Director Of Curriculum And Instruction Name Role Phone Carrington Calderon MD Primary Care Provi anders Abigail Díaz Unavailable [phone] Carmelo Hendrickson Unavailable Unavailable Reason for Referral * Referral (Routine/Next Available) - Authorization Not Required Specialty Diagnoses / Procedures Referred By Contac t Referred To Contact Multidisciplinary Diagnoses Encounter for screening involving social determinants of health (SDoH) Carrington Calderon MD 1 [facility] 1 [place] [address] [facility] Community Health Team [address] [facility], [address] [place] [address] Referral ID Status Reason Start Date Expiration Date Visits Requested Visits Authorized [id number] Authorization Not Required Specialty Services Required 4 1 1 Question Answer Reason for Request: apply for 3 squares and other relevant economic programs Encounter Details Date Type Department Care Team (Latest Contact Info) Description 11/15/2023 Patient Outreach [facility] Adult Primary Care - [address] [phone] Abigail Díaz Encounter for screening involving social determinants of health (SDoH) (Primary Dx) Social History Tobacco Use Types Packs/Day Years Used Date Smoking Tobacco: Former Cigarettes 0.5 13.1 S tarted: 11/10/2010 Smokeless Tobacco: Never Comments:06/13/20 actively try ing to quit about 5-8 cigs/day Alcohol Use Standard Drinks/Week Comments Yes 0 (1 standard drink = 0.6 oz pur e alcohol) rarely [facility] Utilities Answer Date Recorded In the past 12 months has th e [employer], gas, oil, or water company threatened to [...] in a fdc (including now)? No 06/14/2023 Housing Stability Vital [...] time in the past 12 m [facility], were you homeless or living in a fdc (including now)? No 11/15/2023 Interpersonal Safety Answer [...] [facility] Adult Primary Care - [address] [phone] Carrington Calderon MD [address] [phone] 02/27/2024 8:30 EDT Telemedicine [facility] Sleep Program - [address] [phone] Dwight Colbert [address] [place] [address] [phone] 02/29/2024 10:30 EDT Appointment [facility] Radiology Nuclear Medicine and PET [address] [id number] 02/29/2024 14:30 EDT Appointment [facility] Radiology Nuclear Medicine and PET [address] [id number] 03/01/2024 8:00 EDT Appointment [facility] Radiology Nuclear Medicine and PET [address] [id number] 03/01/2024 9:30 EDT Appointment [facility] Radiology Nuclear Medicine and PET [address] [phone] Scheduled Referrals Name Type Priority Associated Diagnoses Order Schedule AMB CONS/FOLLOW UP OUTPATIENT CARE MANAGEMENT - [facility] Outpatient Referral Routine Consult Encounter for screening involving social determinants of health (SDoH) Expected: 11/22/2023 (Approximate), Expires: 11/14/2024 documented as of this encounter Visit Diagnoses Diagnosis Encounter for screening involving social determinants of health (SDoH)- Primary documented in this encounter Care Teams Director Of Curriculum And Instruction Relationship Specialty Start Date End Date Carrington Calderon MD [address] [place] [phone] PCP - General Internal Medicine - Primary Care 12/09/20 Abigail Díaz Dry Cell Tester 04/21/23 Carmelo Hendrickson Coordinator 12/01/23 documented as of this encounter
--- OUTSIDE RECORDS SUMMARY | 2024-01-02 06:09 | XMS_ITS | Encounter Summary ---
Author Organization [facility] Address [address] [place] [address] Care Team Providers Care Drain Tile Machine Operator Name Role Phone Carrington Calderon MD Primary Care Provi anders Abigail Díaz Unavailable Reason for Visit * Reason Comments Coordination Of Care Encounter Details Date Type Department Care Team (Late st Contact Info) Description 11/18/2023 Community Health Team [facility] Adult Primary Care - [place] 1 [place], [place] [phone] Care Management, [facility] Social History Tobacco Use Types Packs/Day Years Used Date Smoking Tobacco: Every Day Cigarettes 0.5 13.1 Started: 11/10/2010 Smokeless Tobacco: Never Comments:06/13/20 actively try ing to quit about 5-8 cigs/day Alcohol Use Standard Drinks/Week Comments Yes 0 (1 standard drink = 0.6 oz pur e alcohol) rarely C Utilities Answer Date Recorded In the past 12 months has [employer], gas, oil, or water [employer] threatened to shut off services in your [...] any time in the past 12 m [facility], were you homeless or living [...] * Nery Stokes - 11/18/2023 0945 EDT [facility] Hvac Tech Date: 11/18/23 Referred by: Abigail Williamson PCP: Carrington Calderon Encounter type: Phone Reason for Referral: 3 Squares, Financial Notes: This Hvac Tech called Stella at scheduled date/time and left a voicemail offering to reschedule with direct contact information. Plan / Action Items: This Hvac Tech sent a Phigitalt message offering to reschedule. Pending reply from Stella. If no response by November 29, this Hvac Tech will place a call toLiz informing if no reply by 12/16/23, the referral will be closed. Assistance is available with a new referral if the referral is closed. Nery Stokes 11/18/23 9:45 documented in this encounter Plan of Treatment Upcoming Encounters Date Type Department Care Team (Late st Contact Info) Description 02/21/2024 9:45 EDT Office Visit [facility] Adult Primary Care - [address] [phone] Carrington Calderon MD [address] [phone] 02/27/2024 8:30 EDT Telemedicine [facility] Sleep Program - [address] [phone] Sayra Dwight [address] [place] [phone] 02/29/2024 10:30 EDT Appointment [facility] Radiology Nuclear Medicine and PET [address] [id number] 02/29/2024 14:30 EDT Appointment [facility] Radiology Nuclear Medicine and PET [address] [id number] 03/01/2024 8:00 EDT Appointment [facility] Radiology Nuclear Medicine and PET [address] [phone] 03/01/2024 9:30 EDT Appointment [facility] Radiology Nuclear Medicine and PET [address] [phone] documented as of this encounter Visit Diagnoses Not on filedocumented in this encounter Care Teams Drain Tile Machine Operator Relationship Specialty Start Date End Date Carrington Calderon MD [address] [place] [phone] PCP - General Internal Medicine - Primary Care 12/09/20 Abigail Díaz Dairy Chemist 04/21/23 documented as of this encounter
--- OUTSIDE RECORDS SUMMARY | 2024-01-02 06:09 | XMS_ITS | Encounter Summary ---
Author Organization [facility] Address [address] [place] [address] Care Team Providers Care Elementary Principal Name Role Phone Carrington Calderon MD Primary Care Provi anders N[place]obb IslandAbigail Unavailable [phone] Encounter Details Date Type Department Care Team (Late st Contact Info) Description 11/11/2023 13:30 EDT Phlebotomy Only [facility] Laboratory Services - [address] [address] Developmental Writing Instructor, [facility] [place] Lab Abnormal thyroid blood test; Encounter for screening for other viral diseases Social History Tobacco Use Types Packs/Day Years Used Date Smoking Tobacco: Former Cigarettes 0.5 13.1 S tarted: 11/10/2010 Smokeless Tobacco: Never Comments:06/13/20 actively try ing to quit about 5-8 cigs/day Alcohol Use Standard Drinks/Week Comments Yes 0 (1 standard drink = 0.6 oz pur e alcohol) rarely [facility] Utilities Answer Date Recorded In the past 12 months has [employer], gas, oil, or water [employer] threatened to shut off services in your [...] in the past 12 m [facility], were you homeless or living in a [...] [facility] - [address] [address] Carrington Calderon MD 1 [facility] 1 [place] [address] 02/27/2024 8:30 EDT Telemedicine [facility] Sleep Program - [address] [address] Dwight Colbert [address] [place] [address] [phone] 02/29/2024 10:30 EDT Appointment [facility] Radiology Nuclear Medicine and PET [address] [id number] 02/29/2024 14:30 EDT Appointment [facility] Radiology Nuclear Medicine and PET [address] [id number] 03/01/2024 8:00 EDT Appointment [facility] Radiology Nuclear Medicine and PET [address] [id number] 03/01/2024 9:30 EDT Appointment [facility] Radiology Nuclear Medicine and PET [address] [phone] documented as of this encounter Procedures Procedure [...] & BLOOD GAS ORDERABLES Performing Organization Address City/[facility]/ZIP Co de Phone Number [facility] [address] [place] [address] * T4 FREE (11/11/2023 13:53 EDT) Pathologist [facility] T4, Free 1.1 0.8 - 2.2 ng/dL 11/11/2023 16:08 EDT [facility] Blood VENOUS BLOOD / Unknown Venipuncture / Unknown 11/11/2023 13:53 EDT 11/11/2023 13:55 EDT Carrington Calderon MD CHEMISTRY & BLOOD GAS ORDERABLES [facility] [address] [place] [address] * HIV 1/2 ANTIGEN AND ANTIBODY, 4TH GENERATION (11/11/2023 13:53 EDT) Pathologist [facility] HIV 1 and 2 Antibody/p24 Antigen, 4th [...] Fourth Generation assay performed on the Siemens Invisibleaur XPT. Carrington Calderon MD IMMUNOLOGY AND SEROLOGY ORDERABLES Performing Organization Address City/[facility]/ZIP Co de Phone Number [facility] [address] [place] [address] * HEPATITIS C AB W REFLEX TO HCV RNA BY PCR (11/11/2023 13:53 EDT) Hep C Antibody Negative Negative 11/11/2023 17:03 EDT [facility] Blood VENOUS BLOOD / Unknown Venipuncture / Unknown 11/11/2023 13:53 EDT 11/11/2023 13:55 EDT Carrington Calderon MD CHEMISTRY & BLOOD GAS ORDERABLES Performing Organization Address [facility] Co de Phone Number [facility] [address] [place] [address] * HEPATITIS B PROFILE (11/11/2023 13:53 EDT) [...] GAS ORDERABLES Performing Organization Address [facility] Co de Phone Number [facility] [address] [place], [place] 4[address] * (ABNORMAL) THYROID CASCADE (11/11/2023 13:53 EDT) [...] GAS ORDERABLES Performing Organization Address [facility] Co de Phone Number [facility] [address] [place] [address] [phone] documented in this encounter Visit Diagnoses Diagnosis Abnormal thyroid blood test Nonspecific abnormal results of thyroid function study Encounter for screening for other viral diseases documented in this encounter Care Teams Elementary Principal Relationship Specialty Start Date End Date Carrington Calderon MD 1 [facility] 1 [place] [address] PCP - General Internal Medicine - Primary Care 12/09/20 Abigail Díaz Bilingual Operator 04/21/23 documented as of this encounter
--- OUTSIDE RECORDS SUMMARY | 2024-01-02 06:10 | XMS_ITS | Encounter Summary ---
Author Organization [facility] Address [address] [place] [address] Care Team Providers Care Acid Wash Operator Name Role Phone Carrington Calderon MD Primary Care Provi anders Reason for Referral * Referral (Routine/Next Available) - Specialty Report Received Specialty Diagnoses / Procedures [facility] Referred To Contact Multidisciplinary Diagnoses Adjustment reaction with anxiety and depression Carrington Calderon MD [address] [place] [phone] [facility] Community Health Team [address] [facility] [address] [place] [address] Referral ID Status Reason Start Date Expiration Date Visits Requested Visits Authorized [id number] Specialty Report Received Specialty Services Required 3 1 1 Question Answer Reason for Request: community therapist Reason for Visit * Reason Onset Date Comments Referral Request 03/28/2023 Encounter Details Date Type Department Care Team (Late st Contact Info) Description 03/28/2023 Telephone [facility] Adult Primary Care - [address] [phone] Carrington Calderon MD [address] [phone] Referral Request Social History Tobacco Use Types [...] the short-term targeted therapy available through our [facility]. With this in mind, I have signed a medical home/care management referral so that she can be connected with a marriage and family social worker to help her through this process. If I am mistaken and she is interested in short-term therapy through this office, happy to sign a [facility] referral. Please double check with her. Thanks. * Telephone Encounter - Eryn Navarrete RN - 03/28/2023 1606 EDT Reviewed 03/16/ [...] [facility] - [address] [phone] Carrington Calderon MD [address] [phone] 02/27/2024 8:30 EDT Telemedicine [facility] Sleep Program - [address] 340391 Dwight Colbert [address] [place] [address] [phone] 02/29/2024 10:30 EDT [facility]ointment [facility] Rad[facility] Nuclear Medicine and PET - [address] 394241 02/29/2024 14:30 EDT Appointment [facility] Radiology Nuclear Medicine and PET - [facility] [address] [place], [place] [phone] 03/01/2024 8:00 EDT [facility]ointment [facility] Radiology Nuclear Medicine and PET [address] [address] 03/01/2024 9:30 EDT Appointment [facility] Radiology Nuclear Medicine and PET [address] [address] Scheduled Referrals Name Type Priority Associated Diagnoses Order Schedule AMB CONS/FOLLOW UP OUTPATIENT CARE MANAGEMENT - [facility] Outpatient Referral Routine/Next Available Adjustment reaction with anxiety and depression Expected: 04/05/2023 (Approximate), Expires: 03/29/2024 documented as of this encounter Visit Diagnoses Diagnosis Adjustment reaction with anxiety and depression- Primary Adjustment disorder with mixed anxiety and depressed mood documented in this encounter Care Teams Acid Wash Operator Relationship Specialty Start Date End Date Carrington Calderon MD 1 [facility] 1 [place] [address] PCP - General Internal Medicine - Primary Care 12/09/20 documented as of this encounter
--- OUTSIDE RECORDS SUMMARY | 2024-01-02 06:10 | XMS_ITS | Encounter Summary ---
Author Organization [facility] Address [address] [place] [address] Care Team Providers Care Last Dipper Name Role Phone Carrington Calderon MD Primary Care Provi anders Abigail Díaz Unavailable Reason for Visit * Reason Comments Nicotine Dependence Encounter Details Date Type Department Care Team (Late st Contact Info) Description 05/17/2023 Community Health Team [facility] Adult Primary Care - [place] 1 [place], [place] [phone] Kylah Wilson Social History Tobacco Use Types [...] in a senior living (including now)? No 11/17/2022 Interpersonal Safety Answer [...] [facility] Adult Primary Care - [address] [phone] Carrington Calderon MD [address] [phone] 02/27/2024 8:30 EDT Telemedicine [facility] Sleep Program - [address] [phone] Dwight Colbert [address] [place] [address] 02/29/2024 10:30 EDT Appointment [facility] Radiology Nuclear Medicine and PET - [address] 118321 02/29/2024 14:30 EDT Appointment [facility] Radiology Nuclear Medicine and PET [address] [id number] 03/01/2024 8:00 EDT Appointment [facility] Radiology Nuclear Medicine and PET - [address] [id number] 03/01/2024 9:30 EDT Appointment [facility] Radiology Nuclear Medicine and PET - [address] [address] documented as of this encounter Visit Diagnoses Not on filedocumented in this encounter Care Teams Last Dipper Relationship Specialty Start Date End Date Carrington Calderon MD 1 [facility] 1 [place] [phone] PCP - General Internal Medicine - Primary Care 12/09/20 Abigail Díaz Dog Obedience Instructor 04/21/23 documented as of this encounter
--- OUTSIDE RECORDS SUMMARY | 2024-01-02 06:10 | XMS_ITS | Encounter Summary ---
Author Organization [facility] Address [address] [place] [address] Care Team Providers Care Vacuum Metalizing Supervisor Name Role Phone Carrington Calderon MD Primary Care Provi anders Abigail Díaz Unavailable [phone] Reason for Visit * Reason Comments Nicotine Dependence Encounter Details Date Type Department Care Team (Late st Contact Info) Description 05/11/2023 Community Health Team [facility] Adult Primary Care - [place] 1 [place], [place] [phone] Kylah Wilson Social History Tobacco Use Types [...] encounter Progress Notes * Kylah Wilson - 05/11/2023 1007 EST Spoke with pt [...] and would like to work with a high school coach 1:1 for additional support along with trying [...] [facility] Adult Primary Care - [address] [phone] Carrington Calderon MD [address] [phone] 02/27/2024 8:30 EDT Telemedicine [facility] Sleep Program - [address] [phone] Dwight Colbert [address] [place], [place] 244[address] 02/29/2024 10:30 EDT [facility]ointment [facility] Rad[facility] Nuclear Medicine and PET - [address] [phone] 02/29/2024 14:30 EDT [facility]ment [facility] Nuclear Medicine and PET [address] 747011 03/01/2024 8:00 EDT Appointment [facility] Radiology Nuclear Medicine and PET - [address] [address] 03/01/2024 9:30 EDT Appointment [facility] Radiology Nuclear Medicine and PET [address] 165061 documented as of this encounter Visit Diagnoses Not on filedocumented in this encounter Care Teams Vacuum Metalizing Supervisor Relationship Specialty Start Date End Date Carrington Calderon MD 1 [facility] Level 1 [place] [phone] PCP - General Internal Medicine - Primary Care 12/09/20 Abigail Díaz Glost Kiln Operator 04/21/23 documented as of this encounter
--- OUTSIDE RECORDS SUMMARY | 2024-01-02 06:10 | XMS_ITS | Encounter Summary ---
Author Organization [facility] Address [address] [place] [address] Care Team Providers Care Tuber Machine Cutter Name Role Phone Carrington Calderon MD Primary Care Provi anders Abigail Díaz Unavailable Reason for Visit * Reason Comments Follow-up EST/ Gastroparesis/ Notes in scans * Consult (Routine) - Receiving Office to Obtain Authorization Specialty Diagnoses / Procedures Referred By Kit goode Referred To Contact Diagnoses Gastroparesis Dale Collier MD [address] [place] [address] [place] [address] [facility] Mp5 Gi [address] [place] [address] Referral ID Status Reason Start Date Expiration Date Visits Requested Visits Authorized [id number] Receiving Office to Obtain Authorization Specialty Services Required 1 1 Encounter Details Date Type Department Care Team (Late st Contact Info) Description 05/13/2023 11:00 EST Office Visit [facility] Gastroenterology - [address] [address] Scott Arzate MD 111 [facility], Level 5 [place] [phone] Cyclic vomiting syndrome (Primary Dx) Social History [...] (IMITREX) 20 mg/actuation nasal spray Instill 1 Ralph into right nostril as needed for Migraine. [...] [facility] Adult Primary Care - [address] 645991 Carrington Calderon MD [address] [phone] 02/27/2024 8:30 EDT Telemedicine [facility] Sleep Program - [address] [address] Dwight Colbert [address] [place] [address] [phone] 02/29/2024 10:30 EDT Appointment [facility] Radiology Nuclear Medicine and PET [address] [id number] 02/29/2024 14:30 EDT Appointment [facility] Radiology Nuclear Medicine and PET [address] [address] 03/01/2024 8:00 EDT Appointment [facility] Radiology Nuclear Medicine and PET [address] 929321 03/01/2024 9:30 EDT Appointment [facility] Radiology Nuclear Medicine and PET [address] 834751 documented as of this encounter Visit Diagnoses Diagnosis Cyclic vomiting syndrome- Primary Persistent vomiting documented in this encounter Care Teams Tuber Machine Cutter Relationship Specialty Start Date End Date Carrington Calderon MD [address] [place] [phone] PCP - General Internal Medicine - Primary Care 12/09/20 Abigail Díaz State Federal Relations Deputy Director 04/21/23 documented as of this encounter
--- OUTSIDE RECORDS SUMMARY | 2024-01-02 06:10 | XMS_ITS | Encounter Summary ---
Author Organization [facility] Address [address] [place] [address] Care Team Providers Care Tin Dipper Name Role Phone Carrington Calderon MD Primary Care Provi anders Reason for Referral * Consult (Routine/Next Available) - Specialty Report Received Specialty Diagnoses / Procedures Referred By Kit goode Referred To Contact Endocrinology Diagnoses Type 2 diabetes mellitus with diabetic polyneuropathy, with long-term current use of insulin ([facility]) Fermin Skinner MD [address] [phone] Harjinder Azevedo, DO [address] [place] [address] [place] [phone] Referral ID Status Reason Start Date Expiration Date Visits Requested Visits Authorized [id number] Specialty Report Received Specialty Services Required 04/14/2023 1 1 Question Answer Reason for Request: Type II DM Reason for Visit * Reason Onset Date Comments Referral Request 04/14/2023 Encounter Details Date Type Department Care Team (Late st Contact Info) Description 04/14/2023 Telephone [facility] Adult Primary Care - [address] [phone] Carrington Calderon MD [address] [phone] Referral Request Social History Tobacco Use Types [...] EST Spoke with pt who reports her resident services director recommended she see Dr Azevedo for diabetes. Referral pended for review. * Telephone Encounter - Misty Barahona - 04/14/2023 1308 EST Stella came up to the front desk lead today (Spouse has an appointment) and is requesting a referral to Nathanael Azevedo, Ecologist. documented in this encounter Plan of Treatment Upcoming Encounters Date Type Department Care Team (Late st Contact Info) Description 02/21/2024 9:45 EDT Office Visit [facility] Adult Primary Care - [address] [phone] Carrington Calderon MD [address] [place] [phone] 02/27/2024 8:30 EDT Telemedicine [facility] Sleep Program - [address] [phone] Dwight Colbert [address] [place] [phone] 02/29/2024 10:[address] [facility] Radiology Nuclear Medicine and PET [address] [id number] 02/29/2024 14:[address] [facility] Radiology Nuclear Medicine and PET [address] 898201 03/01/2024 8:[address] [facility] Radiology Nuclear Medicine and PET [address] [phone] 03/01/2024 9:[address] [facility] Radiology Nuclear Medicine and PET [address] [phone] Scheduled Referrals Name Type Priority Associated Diagnoses Order Schedule AMB CONS/FOLLOW UP ENDOCRINOLOGY Outpatient Referral Routine/Next Available Type 2 diabetes mellitus with diabetic polyneuropathy, with long-term current use of insulin ([facility]) ([facility]) Expected: 04/21/2023 (Approximate), Expires: 04/14/2024 documented as of this encounter Visit Diagnoses Diagnosis Type 2 diabetes mellitus with diabetic polyneuropathy, with long-term current use of insulin ([facility]) ([facility])- Primary documented in this encounter Care Teams Tin Dipper Relationship Specialty Start Date End Date Carrington Calderon MD [address] [place] [phone] PCP - General Internal Medicine - Primary Care 12/09/20 documented as of this encounter
--- OUTSIDE RECORDS SUMMARY | 2024-01-02 06:10 | XMS_ITS | Encounter Summary ---
Author Organization [facility] Address [address] [place] [address] Care Team Providers Care Cycle Analyst Name Role Phone Carrington Calderon MD Primary Care Provi anders Reason for Visit * Reason Onset Date Comments Coordination Of Care 03/30/2023 Encounter Details Date Type Department Care Team (Late st Contact Info) Description 03/30/2023 Telephone [facility] Adult Primary Care [facility] 1 [place], [place] 055331 Carrington Calderon MD 1 [facility] Level 1 [place] [phone] Coordination Of Care Social History [...] Info) Description 02/21/2024 9:45 EDT Office Visit [facility] Adult Primary Care - [address] [phone] Carrington Calderon MD [address] [phone] 02/27/2024 8:30 EDT Telemedicine [facility] Sleep Program - [address] 516281 Dwight Colbert [address] [place] [address] [phone] 02/29/2024 10:30 EDT Appointment [facility] Radiology Nuclear Medicine and PET [address] [phone] 02/29/2024 14:30 EDT Appointment [facility] Radiology Nuclear Medicine and PET [address] [id number] 03/01/2024 8:00 EDT Appointment [facility] Radiology Nuclear Medicine and PET [address] [phone] 03/01/2024 9:30 EDT Appointment [facility] Radiology Nuclear Medicine and PET [address] [phone] Scheduled Orders Name Type Priority Associated Diagnoses [...] use of insulin ([facility]) ([facility]) Expected: 03/30/2023 (Approximate), Expires: 03/30/2024 documented as of this encounter Visit Diagnoses Diagnosis Lymphocytosis- Primary Lymphocytosis (symptomatic) Abnormal thyroid function test Nonspecific abnormal results of thyroid function study Type 2 diabetes mellitus with diabetic polyneuropathy, with long-term current use of insulin ([facility]) (HCC) documented in this encounter Care Teams Cycle Analyst Relationship Specialty Start Date End Date Carrington Calderon MD 1 [facility] 1 [place] [phone] PCP - General Internal Medicine - Primary Care 12/09/20 documented as of this encounter
--- OUTSIDE RECORDS SUMMARY | 2024-01-02 06:10 | XMS_ITS | Encounter Summary ---
Author Organization [facility] Address [address] [place] [address] Care Team Providers Care Senior Client Advisor Name Role Phone Carrington Calderon MD Primary Care Provi anders Encounter Details Date Type Department Care Team (Late st Contact Info) Description 03/17/2023 13:45 EDT Phlebotomy Only [facility] Laboratory Services - [address] [address] [facility] Night sweats; Lymphocytosis Social History Tobacco [...] slept in a mcc (including now)? No 11/17/2022 Interpersonal Safety Answer [...] Visit [facility] Adult Primary Care - [address] [phone] Carrington Calderon MD [address] [phone] 02/27/2024 8:30 EDT Telemedicine [facility] Sleep Program - [address] 240031 Dwight Colbert [address] [place] [address] [phone] 02/29/2024 10:30 EDT Appointment [facility] Radiology Nuclear Medicine and PET [address] [phone] 02/29/2024 14:30 EDT Appointment [facility] Radiology Nuclear Medicine and PET [address] [phone] 03/01/2024 8:00 EDT Appointment [facility] Radiology Nuclear Medicine and PET [address] [phone] 03/01/2024 9:30 EDT Appointment [facility] Radiology Nuclear Medicine and PET [address] [phone] documented as of this encounter Procedures Procedure Name Priority Date/Time Associated Diagnosis Comments LEUKEMIA/LYMPHOMA PANEL BY FLOW CYTOMETRY Routine 03/17/2023 13:52 EDT Night sweats Lymphocytosis COMPLETE BLOOD COUNT AND DIFFERENTIAL Routine 03/17/2023 13:52 EDT Night sweats Lymphocytosis documented in this encounter Results * (ABNORMAL) COMPLETE BLOOD COUNT AND DIFFERENTIAL (03/17/2023 13:52 EDT) WBC 16.01(H) 4.00 - 12.40 K/cmm 03/17/2023 14:47 [facility] RBC 4.25 3.86 - 5.04 M/cmm 03/17/2023 14:47 [facility] Hemoglobin 13.8 11.6 - 15.2 g/dL 03/17/2023 14:47 [facility] HCT 39.0 34.9 - 44.4 % 03/17/2023 14:47 [facility] MCV 92 81 - 98 fL 03/17/2023 14:47 [facility] MCH 32.5 26.7 - 33.3 pg 03/17/2023 14:47 [facility] MCHC 35.4 32.1 - 35.9 g/dL 03/17/2023 14:47 [facility] RDW-CV 12.7 <14.7 % 03/17/2023 14:47 [facility] RDW-SD 42.2 <50.4 fl 03/17/2023 14:47 [facility] PLT 435(H) 141 - 377 K/cmm 03/17/2023 14:47 [facility] MPV 9.5 9.5 - 12.7 fL 03/17/2023 14:47 [facility] % Neutrophils 44.3 % 03/17/2023 14:47 [facility] % Lymphocytes 44.1 % 03/17/2023 14:47 [facility] % Monocytes 7.4 % 03/17/2023 14:47 [facility] % Eosinophils 3.3 % 03/17/2023 14:47 [facility] % Basophils 0.6 % 03/17/2023 14:47 [facility] % Immature Grans 0.3 % 03/17/20 14:47 [facility] Absolute Neutrophils 7.09 2.20 - 8.85 K/cmm 03/17/2023 14:47 [facility] Absolute Lymphocytes 7.06(H) 1.09 - 3.30 K/cmm 03/17/2023 14:47 [facility] Absolute Monocytes 1.19(H) 0.10 - 0.80 K/cmm 03/17/2023 14:47 [facility] Absolute Eosinophils 0.53 0.03 - 0.61 K/cmm 03/17/2023 14:47 [facility] ABS Basophils 0.09 0.01 - 0.11 K/cmm 03/17/2023 14:47 [facility] Absolute Immature Grans 0.05 0.00 - 0.06 K/cmm 03/17/2023 14:47 [facility] Type of Differential: Auto 03/17/2023 14:47 [facility] Blood VENOUS BLOOD / Unknown Venipuncture / Unknown 03/17/2023 13:52 EDT 03/17/2023 13:52 EDT Carrington Calderon MD PACKAGES & DNA PROBE ORDERABLES [facility] [address] [place] [address] * LEUKEMIA/LYMPHOMA PANEL BY FLOW CYTOMETRY (03/17/2023 13:52 EDT) Final Immunophenotypic Interpretation Peripheral blood, flow cytometric analysis: - No immunophenotypic evidence of a clonal cell population. See comment. 3 12:55 [facility] Comment The results of flow cytometry show no immunophenotypic evidence of involvement by a clonal lymphoproliferative disorder. Correlation of these findings with morphologic and clinical data is essential. 3 12:55 [facility] Attestation By the signature below, the attending physician certifies that they have 1) personally conducted a gross and/or microscopic examination of the described specimen(s), and/or personally interpreted the results of laboratory testing of the described specimen(s), and 2) personally rendered or confirmed the above diagnosis. 3 12:55 [facility] at 1255 Clinical History night sweats, lymphocytosis, smudge cells 3 12:55 [facility] Description The specimen [...] is no increase in blasts. 3 12:55 [facility] Flow Markers CD10, CD117, CD11c, CD16, CD19, CD20, CD3, CD33, CD34, CD38, CD4, CD45, CD5, CD56, CD8, HLA-DR, [place], and Lambda 3 12:55 [facility] FDA Disclaimer This test was developed and its performance characteristics determined by the Department of Pathology and Laboratory Medicine, [facility], [place], [place] It has not been cleared or [...] high complexity clinical laboratory testing. 3 12:55 [facility] Sample Analyzed Date and Time 03/18/23 at 1106 3 12:55 EDT [facility] Scanned Images 3 12:55 EDT [facility] Blood VENOUS BLOOD / Unknown Venipuncture / Unknown 03/17/2023 13:52 EDT 03/17/2023 13:52 EDT Carrington Calderon MD PATHOLOGY O RDERABLES [facility] [address] [place] [address] documented in this encounter Visit Diagnoses Diagnosis Night sweats Generalized hyperhidrosis Lymphocytosis Lymphocytosis (symptomatic) documented in this encounter Care Teams Senior Client Advisor Relationship Specialty Start Date End Date Carrington Calderon MD 1 [facility] 1 [place] [phone] PCP - General Internal Medicine - Primary Care 12/09/20 documented as of this encounter
--- OUTSIDE RECORDS SUMMARY | 2024-01-02 06:10 | XMS_ITS | Encounter Summary ---
Author Organization [facility] Address [address] [place] [address] Care Team Providers Care Ems Helicopter Pilot Name Role Phone Carrington Calderon MD Primary Care Provi anders Abigail Díaz Unavailable Reason for Visit * Reason Comments New Patient Visit * Consult (Routine/Next Available) - Specialty Report Received Specialty Diagnoses / Procedures [facility] Referred To Contact Hematology Diagnoses Night sweats Lymphocytosis Carrington Calderon MD 1 [facility] 1 [place] [address] [facility] Ep2 Hem/Onc [address] [place] [address] Referral ID Status Reason Start Date Expiration Date Visits Requested Visits Authorized [id number] Specialty Report Received Specialty Services Required 06/27/2023 1 1 Encounter Details Date Type Department Care Team (Late st Contact Info) Description 08/05/2023 11:00 EST Office Visit [facility] Hematology & Oncology - [address] [address] Josh Clayton MD 111 [facility] 2 [place] [phone] Bandemia (Primary Dx) Social History Tobacco Use [...] results, and documentation. 08/05/2023 Josh Clayton MD Fruit Washer, Division of Hematology / Oncology [facility] -------- NON FACE TO FACE PROLONGED SERVICES Date of related [id number] encounter 08/05/2023. Pre visit preparation performed on [...] 02/21/2024 9:45 EDT Office Visit [facility] Adult Primary Care - [address] [phone] Carrington Calderon MD [address] [phone] 02/27/2024 8:30 EDT Telemedicine [facility] Sleep Program - [address] [phone] Dwight Colbert [address] [place] [address] [phone] 02/29/2024 10:30 EDT Appointment [facility] Radiology Nuclear Medicine and PET - [address] [phone] 02/29/2024 14:30 EDT Appointment [facility] Radiology Nuclear Medicine and PET [address] [id number] 03/01/2024 8:00 EDT Appointment [facility] Radiology Nuclear Medicine and PET - [address] [id number] 03/01/2024 9:30 EDT Appointment [facility] Radiology Nuclear Medicine and PET [address] [phone] documented as of this encounter Visit Diagnoses Diagnosis Bandemia- Primary documented in this encounter Care Teams Ems Helicopter Pilot Relationship Specialty Start Date End Date Carrington Calderon MD 1 [facility] 1 [place] [phone] PCP - General Internal Medicine - Primary Care 12/09/20 Abigail Díaz Environmental Engineering Manager 04/21/23 documented as of this encounter
--- OUTSIDE RECORDS SUMMARY | 2024-01-02 06:10 | XMS_ITS | Encounter Summary ---
Author Organization [facility] Address [address] [place] [address] Care Team Providers Care Neurosurgery Spine Physician Name Role Phone Carrington Calderon MD Primary Care Provi anders Abigail Díaz Unavailable Carmelo Hendrickson Unavailable Unavailable Reason for Referral * Consult (Routine/Next Available) - Specialty Report Received Specialty Diagnoses / Procedures [facility] Referred To Contact Obstetrics & Gynecology Diagnoses IUD contraception Carrington Calderon MD [address] [phone] [facility] Mp4 Obgyn [address] [place] [address] Referral ID Status Reason Start Date Expiration Date Visits Requested Visits Authorized [id number] Specialty Report Received Specialty Services Required 3 1 1 Question Answer Reason for Request: IUD placement Reason for Visit * Reason Onset Date Comments Referral Request 06/01/2023 Encounter Details Date Type Department Care Team (Late st Contact Info) Description 06/01/2023 Telephone [facility] Adult Primary Care - [address] [address] Carrington Calderon MD [address] [phone] Referral Request Social History Tobacco Use Types Packs/Day Years Used Date Smoking Tobacco: Former Cigarettes 0.5 13.1 S tarted: 11/10/2010 Smokeless Tobacco: Never Comments:06/13/20 actively try ing to quit about 5-8 cigs/day Alcohol Use Standard Drinks/Week Comments Yes 0 (1 standard drink = 0.6 oz pur e alcohol) rarely [facility] Utilities Answer Date Recorded In the past 12 months has th e [employer], gas, oil, or water [employer] threatened to shut off services in your [...] any time in the past 12 m [facility], were you homeless or living [...] is calling to get a referral to [employer] for a Kriss placement. documented in this encounter Plan of Treatment Upcoming Encounters Date Type Department Care Team (Late st Contact Info) Description 02/21/2024 9:45 EDT Office Visit [facility] Adult Primary Care - [address] 505201 Carrington Calderon MD [address] [phone] 02/27/2024 8:30 EDT Telemedicine [facility] Sleep Program - [address] [phone] Dwight Colbert [address] [place] [address] [phone] 02/29/2024 10:30 EDT Appointment [facility] Radiology Nuclear Medicine and [address] [phone] 02/29/2024 14:30 EDT Appointment [facility] Radiology Nuclear Medicine and [address] [phone] 03/01/2024 8:00 EDT Appointment [facility] Radiology Nuclear Medicine and PET [address] [phone] 03/01/2024 9:30 EDT Appointment [facility] Radiology Nuclear Medicine and [address] [phone] Scheduled Referrals Name Type Priority Associated Diagnoses Orde r Schedule AMB CONS/FOLLOW UP GYNECOLOGY Outpatient Referral Routine/Next Available IUD contraception Expected: 06/08/2023 (Approximate), Expires: 06/01/2024 documented as of this encounter Visit Diagnoses Diagnosis IUD contraception- Primary Presence of intrauterine contraceptive device documented in this encounter Care Teams Neurosurgery Spine Physician Relationship Specialty Start Date End Date Carrington Calderon MD 1 [facility] 1 [place] [address] PCP - General Internal Medicine - Primary Care 12/09/20 Abigail Díaz Cloth Wire Weaver 04/21/23 Carmelo Hendrickson Coordinator 12/01/23 documented as of this encounter
--- OUTSIDE RECORDS SUMMARY | 2024-01-02 06:10 | XMS_ITS | Encounter Summary ---
Author Organization [facility] Address [address] [place] [address] Care Team Providers Care Floor Sweeper Name Role Phone Carrington Calderon MD Primary Care Provi anders Abigail Díaz Unavailable Reason for Visit * Reason Onset Date Comments Tank Cooper Message 05/26/2023 Encounter Details Date Type Department Care Team (Late st Contact Info) Description 05/26/2023 Telephone [facility] Adult Primary Care - [address] [address] Samantha Hough MD [address] [place] [phone] Tank Cooper Message Social History Tobacco Use Types Packs/Day [...] - Samantha Hough MD - 05/26/20232051 EST Tank Cooper Provider Documentation Returned to page to mother [...] - Samantha Hough MD - 05/26/20232022 EST Tank Cooper Provider Documentation 8:20 pm page to insulation machine operator who states mother in law of patient calling due to concern of patient being sick and vomiting Ground Support Agent called back x 2, direct to voicemail with no voicemail set up. Await additional calls. Samantha Hough MD documented in this encounter Plan of Treatment Upcoming Encounters Date Type Department Care Team (Late st Contact Info) Description 02/21/2024 9:45 EDT Office Visit [facility] Adult Primary Care - [place] 1 [place], [place] 067481 Carrington Calderon MD 1 [facility] Level 1 [place] [phone] 02/27/2024 8:30 EDT Telemedicine [facility] Sleep Program - [address] [address] Sayra Dwight [address] [place] [address] [phone] 02/29/2024 10:30 EDT Appointment [facility] Radiology Nuclear Medicine and PET - [address] [id number] 02/29/2024 14:30 EDT Appointment [facility] Radiology Nuclear Medicine and PET - [address] [phone] 03/01/2024 8:00 EDT Appointment [facility] Radiology Nuclear Medicine and PET - [address] [phone] 03/01/2024 9:30 EDT Appointment [facility] Radiology Nuclear Medicine and PET [address] [address] documented as of this encounter Visit Diagnoses Not on filedocumented in this encounter Care Teams Floor Sweeper Relationship Specialty Start Date End Date Carrington Calderon MD [address] [phone] PCP - General Internal Medicine - Primary Care 12/09/20 Abigail Díaz Precipitator 04/21/23 documented as of this encounter
--- OUTSIDE RECORDS SUMMARY | 2024-01-02 06:10 | XMS_ITS | Encounter Summary ---
Author Organization [facility] Address [address] [place] [address] Care Team Providers Care Traffic Observer Name Role Phone Carrington Calderon MD Primary Care Provi anders Abigail Díaz Unavailable Carmelo Hendrickson Unavailable Unavailable Reason for Visit * Reason Comments Medications Refill Encounter Details Date Type Department Care Team (Late st Contact Info) Description 03/31/2023 Refill [facility] Adult Primary Care - [address] [address] Carrington Calderon MD [address] [phone] Medications Refill Social History Tobacco Use Types [...] polyneuropathy, with long-term current use of insulin ([facility]) INJECT 12 UNITS THREE TIMES DAILY [...] 12 UNITS THREE TIMES DAILY WITH MEALS [facility] [address] [place] [address] Confirmed Pharmacy? Yes Patient out of medication? Unknown How many pills does patient have left? unknown Last Refill Date: 11/18/22 Refills left? (explain exceptions requiring early refill) No Recent Visits Date Type Provider Dept 11/17/22 Office Visit Carrington Calderon MD [facility] Adult Prim Care 09/02/22 Office Visit Nimisha Clifton NP [facility] Adult Prim Care 05/20/22 Office Visit Rachel Stein PA-C [facility] Adult Prim Care Showing recent visits within past 540 days with a meds authorizing provider and meeting all other requirements Future Appointments Date Type Provider Dept 06/27/23 Appointment Carrintgon Calderon MD [facility] Adult Prim Care Showing future appointments within next 150 days with a meds authorizing provider and meeting all other requirements Future appointment: Already Scheduled JOSS WASHINGTON RN 04/01/2023 10:34 documented in this encounter Plan of Treatment Upcoming Encounters Date Type Department Care Team (Late st Contact Info) Description 02/21/2024 9:45 EDT Office Visit [facility] Adult Primary Care - [address] [phone] Carrington Calderon MD [address] [place] [address] [phone] 02/27/2024 8:30 EDT Telemedicine [facility] Sleep Program - [address] 147991 Dwight Colbert [address] [place] [address] [phone] 02/29/2024 10:30 EDT Appointment [facility] Radiology Nuclear Medicine and PET [address] [phone] 02/29/2024 14:30 EDT Appointment [facility] Radiology Nuclear Medicine and PET [address] [phone] 03/01/2024 8:00 EDT Appointment [facility] Radiology Nuclear Medicine and PET [address] [phone] 03/01/2024 9:30 EDT Appointment [facility] Radiology Nuclear Medicine and PET [address] [phone] documented as of this encounter Visit Diagnoses Diagnosis Type 2 diabetes mellitus with diabetic polyneuropathy, with long-term current use of insulin ([facility]) documented in this encounter Care Teams Traffic Observer Relationship Specialty Start Date End Date Carrington Calderon MD [address] [place] [address] [phone] PCP - General Internal Medicine - Primary Care 12/09/20 Abigail Díaz Stump Shooter 04/21/23 Carmelo Hendrickson Coordinator 12/01/23 documented as of this encounter
--- OUTSIDE RECORDS SUMMARY | 2024-01-02 06:10 | XMS_ITS | Encounter Summary ---
Author Organization [facility] Address [address] [place] [address] Care Team Providers Care Auto Parker Name Role Phone Carrington Calderon MD Primary Care Provi anders Abigail Díaz Unavailable [phone] Reason for Visit * Reason Onset Date Comments Results 07/25/2023 XRAY right ankle Encounter Details Date Type Department Care Team (Late st Contact Info) Description 07/25/2023 Telephone [facility] Adult Primary Care - [address] [address] Carrington Calderon MD 1 [facility] Level [address] [place] [phone] Results (XRAY right ankle) Social History [...] in a detention (including now)? No 06/14/2023 Interpersonal Safety Answer [...] [facility] Adult Primary Care - [address] [phone] Carrington Calderon MD [address] [phone] 02/27/2024 8:30 EDT Telemedicine [facility] Sleep Program - [address] [phone] Dwight Colbert [address] [place] [address] [phone] 02/29/2024 10:30 EDT Appointment [facility] Radiology Nuclear Medicine and PET - Main [address] [address] 02/29/2024 14:30 EDT [facility] Radiology Nuclear Medicine and PET - [address] [address] 03/01/2024 8:00 EDT Appointment [facility] Radiology Nuclear Medicine and PET [address] [address] 03/01/2024 9:30 EDT Appointment [facility] Radiology Nuclear Medicine and PET - [address] [address] documented as of this encounter Visit Diagnoses Not on filedocumented in this encounter Care Teams Auto Parker Relationship Specialty Start Date End Date Carrington Calderon MD 1 [facility] 1 [place] [address] PCP - General Internal Medicine - Primary Care 12/09/20 Abigail Díaz Intermediate Manager 04/21/23 documented as of this encounter
--- OUTSIDE RECORDS SUMMARY | 2024-01-02 06:10 | XMS_ITS | Encounter Summary ---
Author Organization [facility] Address [address] [place] [address] Care Team Providers Care Rig Hand Name Role Phone Carrington Calderon MD Primary Care Provi anders Abigail Díaz Unavailable Reason for Visit * Reason Comments Consult * Consult (Routine/Next Available) - Specialty Report Received Specialty Diagnoses / Procedures Referred By Kit goode Referred To Contact Obstetrics & Gynecology Diagnoses IUD contraception Carrington Calderon MD 1 [facility] 1 [place] [phone] [facility] [address] [place] [address] Referral ID Status Reason Start Date Expiration Date Visits Requested Visits Authorized [id number] Specialty Report Received Specialty Services Required 3 1 1 Encounter Details Date Type Department Care Team (Late st Contact Info) Description 08/05/2023 13:00 EST Initial consult [facility] Women's Services - [address] [address] Kamini Vega MD 111 [facility] 4 [place] [address] Encounter for IUD insertion (Primary [...] pt has a referral for therapy. Diabetes ([facility]) A1c 10.3 on 11/28/2019 - poorly controlled Diabetes mellitus, type 2 ([facility]) pt check blood sugars at home- X [...] withdrawn slightly and arms deployed as per propulsion systems engineer specifications. Applicator removed Strings trimmed to 3 cm Tenaculum removed. No bleeding from tenaculum sites. Speculum removed. Patient tolerated procedure well. Kamini Vega MD 08/05/2023 13:02 documented in this encounter Plan of Treatment Upcoming Encounters Date Type Department Care Team (Late st Contact Info) Description 02/21/2024 9:45 EDT Office Visit [facility] Adult Primary Care - [address] [phone] Carrington Calderon MD [address] [phone] 02/27/2024 8:30 EDT Telemedicine [facility] Sleep Program - [address] [phone] Dwight Colbert [address] [place] [address] [phone] 02/29/2024 10:30 EDT Appointment [facility] Radiology Nuclear Medicine and PET [address] [phone] 02/29/2024 14:30 EDT Appointment [facility] Radiology Nuclear Medicine and PET [address] [phone] 03/01/2024 8:00 EDT Appointment [facility] Radiology Nuclear Medicine and PET [address] [id number] 03/01/2024 9:30 EDT Appointment [facility] Radiology Nuclear Medicine and PET [address] [phone] documented as of this encounter Visit Diagnoses [...] at 1345, Until Tue08/03/30 at 1344, Per [facility] P [facility]T Committee, use is restricted to outpatient clinics and the OR. LARC approved for inpatient use includes Mirena, Nexplanon, and Paragard only for patients covered by [facility] Routine IUD Insertion 08/05/2023 13:18 EST 1 Each documented in this encounter Orders Medications Ordered That Stan ht Not Have Been Administered Count Last Ordered Date First Ordered Date levonorgestreL (MIRENA) 21 m cg/24 hours (8 yrs) 52 mg IUD 1 Each 1 08/05/2023 documented in this encounter Care Teams Rig Hand Relationship Specialty Start Date End Date Carrington Calderon MD 1 [facility] 1 [place] [phone] PCP - General Internal Medicine - Primary Care 12/09/20 Abigail Díaz Press Worker Helper 04/21/23 documented as of this encounter
--- OUTSIDE RECORDS SUMMARY | 2024-01-02 06:10 | XMS_ITS | Encounter Summary ---
Author Organization [facility] Address [address] [place] [address] Care Team Providers Care Cloth Shearing Supervisor Name Role Phone Carrington Calderon MD Primary Care Provi anders BarahonaJameyDavenportAbigail Unavailable Reason for Referral * Radiology Services (Routine/Next Available) - Authorization Not Required Specialty Diagnoses / Procedures Referred By Contac t Referred To Contact Diagnoses Pain in right ankle and joints of right foot Procedures XR ANKLE RIGHT 3 OR MORE VIEWS Kylah Vázquez PA [address] [place] [phone] [facility] Referral ID Status Reason Start Date Expiration Date Visits Requested Visits Authorized [id number] Authorization Not Required 07/25/2023 1 1 Reason for Visit * Radiology Services (Routine/Next Available) - Authorization Not Required Specialty Diagnoses / Procedures Referred By Contac t Referred To Contact Diagnoses Pain in right ankle and joints of right foot Procedures XR ANKLE RIGHT 3 OR MORE VIEWS Kylah Vázquez PA [address] [place] [phone] [facility] Referral ID Status Reason Start Date Expiration Date Visits Requested Visits Authorized [id number] Authorization Not Required 07/25/2023 1 1 Encounter Details Date Type Department Care Team (Latest Contact Info) Description 07/25/2023 13:24 EST - 07/25/2023 23:59 EST [facility] Radiology Xray Outpatient - [address] [address] Pain in right ankle and joints of [...] a nursing home (including now)? No 06/14/2023 Interpersonal Safety Answer [...] with long-term current use of insulin ([facility]) Inject 1 Each into the skin every 10 days. 9 Each 4 03/16/2023 Blood-Glucose Transmitter (DEXCOM G6 TRANSMITTER) deviceIndications:Typ e 2 diabetes mellitus with diabetic polyneuropathy, with long-term current use of insulin ([facility]) Inject 1 Each into the skin every 3 months. 1 Each 4 07/07/2023 DULoxetine 40 mg capsule,delayed release(DR/EC)Indicat ions:Anxiety and depression Take 40 mg by mouth daily. 30 Capsule 12/17/2022 empagliflozin (JARDIANCE) 25 mg tabletIndications:Typ e 2 diabetes mellitus with diabetic polyneuropathy, with long-term current use of insulin ([facility]) Take 1 Tablet by mouth daily. 90 Tablet 06/27/2023 gabapentin (NEURONTIN) 300 mg capsuleIndications:Di abetic polyneuropathy associated with type 2 diabetes mellitus ([facility]) Take 1 Capsule by mouth every morning AND 4 Capsules at bedtime. 450 Capsule 4 06/27/2023 insulin glargine (LANTUS SOLOSTAR/SEMGLEE) 100 unit/mL (3 mL) injection penIndications:Type 2 diabetes mellitus with diabetic polyneuropathy, with long-term current use of insulin ([facility]) Inject 44 Units into the skin at bedtime. 36 mL 06/27/2023 lidocaine 5 % (LIDODERM) 5 % patchIndications:Financial Services Education Consultant gordo midline low back pain without sciatica Place 1 Patch onto the skin daily. Patch(es) may remain in place for up to 12 hours in any 24-hour period. 30 Patch 2 09/02/2022 metoclopramide HCl (REGLAN) 10 mg tablet Take 1 Tablet by mouth 3 times daily before meals. Starting 3 days before menses and stopping after end of period 270 Tablet 3 06/27/2023 omeprazole (PRILOSEC) 20 mg capsuleIndications:Ga stroparesis Take 1 Capsule by mouth daily. 90 Capsule 3 12/17/2022 ondansetron (ZOFRAN-ODT) 4 mg disintegrating tabletIndications:Cyc [...] hours as needed for Nausea. 6 Suppository 12/17/2022 SITagliptin phosphate (JANUVIA) 100 mg tabletIndications:Typ e 2 diabetes mellitus with diabetic polyneuropathy, with long-term current use of insulin ([facility]) Take 1 Tablet by mouth daily. 90 Tablet 4 06/27/2023 SUMAtriptan (IMITREX) 20 mg/actuation nasal spray USE 1 SPRAY(S) INTO RIGHT NOSTRIL NEEDED FOR MIGRAINE HEADACHE 6 Each 1 06/29/2023 ZOLMitriptan (ZOMIG) 2.5 mg tabletIndications:Cat amenial disorder,Migraine [...] polyneuropathy, with long-term current use of insulin ([facility]) 8 units with breakfast, 12 units with lunch/dinner 30 mL 11 06/27/2023 11/11/2023 LORazepam (ATIVAN) 0.5 mg tabletIndications:Anx iety Take 1 Tablet by mouth daily as needed for Anxiety. Daily Max: 0.5 mg 30 Tablet 3 06/27/2023 12/20/2023 traMADol (ULTRAM) 50 mg tabletIndications:Chr onic midline low back pain without sciatica Take 1 Tablet by mouth every 6 hours as needed for Pain. Daily Max: 200 mg 30 Tablet 5 06/27/2023 12/20/2023 documented as of this encounter Discharge Disposition Disposition Code Departure Means Destination Home or Self Care documented in this encounter Plan of Treatment Upcoming Encounters Date Type Department Care Team (Late st Contact Info) Description 02/21/2024 9:45 EDT Office Visit [facility] Adult Primary Care - [address] [phone] Carrington Calderon MD [address] [place] [address] [phone] 02/27/2024 8:30 EDT Telemedicine [facility] Sleep Program - [address] [phone] Dwight Colbert [address] [place] [phone] 02/29/2024 10:30 EDT [facility]ment [facility] Radiology Nuclear Medicine and PET - [address] [address] 02/29/2024 14:30 EDT Appointment [facility] Radiology Nuclear Medicine and PET [address] [address] 03/01/2024 8:00 EDT Appointment [facility] Radiology Nuclear Medicine and PET [address] [address] 03/01/2024 9:30 EDT Appointment [facility] Radiology Nuclear Medicine and PET [address] [address] documented as of this encounter Procedures Procedure [...] on the plantar surface of the calcaneus. [id number] Narrative 07/25/2023 16:12 EST EXAM/TECHNIQUE: XR ANKLE [...] on the plantar surface of the calcaneus. [id number] Kylah DAWSON IMG DIAGNOSTIC IMAGI NG ORDERABLES documented in this encounter Visit Diagnoses Diagnosis Pain in right ankle and joints of right foot documented in this encounter Care Teams Cloth Shearing Supervisor Relationship Specialty Start Date End Date Carrington Calderon MD 1 [facility] Level 1 [place] [phone] PCP - General Internal Medicine - Primary Care 12/09/20 Abigail Díaz Phlebotomy Lab Assistant 04/21/23 documented as of this encounter
--- OUTSIDE RECORDS SUMMARY | 2024-01-02 06:10 | XMS_ITS | Encounter Summary ---
Author Organization [facility] Address [address] [place] [address] Care Team Providers Care Beach Attendant Name Role Phone Carrington Calderon MD Primary Care Provi anders Amrita Asencio Unavailable Reason for Referral * Consult (Routine/Next Available) - Closed Specialty Diagnoses / Procedures Referred By Kit goode Referred To Contact Diagnoses Carrington Rothman MD [address] [phone] [facility] Health Team [address] [place] [phone] Referral ID Status Reason Start Date Expiration Date V isits Requested Visits Authorized [id number] Closed Specialty Services Required 04/21/2023 1 0 Question Answer Reason for Request: smoking cessation * Referral (Routine/Next Available) - Authorization Not Required Specialty Diagnoses / Procedures Referred By Kit goode Referred To Contact Multidisciplinary Diagnoses Carrington Rothman MD [address] [phone] [facility] Health Team 128 [facility], [address] [address] Referral ID Status Reason Start Date Expiration Date Visits Requested Visits Authorized [id number] Authorization Not Required Specialty Services Required 04/21/20 23 1 1 Question Answer Reason for Request: tobacco cessation support Encounter Details Date Type Department Care Team (Late st Contact Info) Description 04/21/2023 Patient Outreach [facility] Adult Primary Care [address] [address] Bre Amrita Smoking (Primary Dx) Social History [...] current use of insulin ([facility]) ([facility]) ?? Gastrointestinal/Abdominal Gastroparesis ?? Psychiatric Anxiety and depression ?? Musculoskeletal Chronic midline low back pain without sciatica Neuropathic diabetic ulcer of foot ([facility]) Family history of rheumatoid arthritis ?? Neurological [...] - BCB* ASUNCION LUO 05/08/1986 Male Spouse [id number] 02/14/22 [id number] [place] [address] 2. MEDICAID ACO * CRISTY LUO 1985 Female Self [id number] [birth year]/22 [address] Any gaps or barriers with healthcare insurance coverage: No DME: scooter, due to amputee diabetic sensor DME vendor: [employer] secondary insurance covers supplies Barriers to using [...] today within 1 week and will contact managed care specialist if additional assistance is needed as discussed. 2. stella will schedule a counseling appointment with at least one of the counselors provided today within 1 week and will follow up with managed care specialist at next scheduled follow up on within [...] some marijuana use to combat anxiety symptoms industrial engineering manager reviewed current mental health resources with [...] 02/21/2024 9:45 EDT Office Visit [facility] Adult Primary Care - [address] [phone] Carrington Calderon MD [address] [phone] 02/27/2024 8:30 EDT Telemedicine [facility] Sleep Program - [address] 355261 Dwight Colbert [address] [place] [address] [phone] 02/29/2024 10:30 EDT Appointment [facility] Radiology Nuclear Medicine and PET [address] [phone] 02/29/2024 14:30 EDT Appointment [facility] Radiology Nuclear Medicine and PET [address] [phone] 03/01/2024 8:00 EDT Appointment [facility] Radiology Nuclear Medicine and PET [address] [phone] 03/01/2024 9:30 EDT Appointment [facility] Radiology Nuclear Medicine and PET [address] [phone] Scheduled Referrals Name Type Priority Associated Diagnoses Order Schedule AMB CONS/FOLLOW UP OUTPATIENT CARE MANAGEMENT - [facility] Outpatient Referral Routine Consult Smoking Expected: 04/28/2023 (Approximate), Expires: 04/21/2024 AMB CONS/FOLLOW UP SMOKING CESSATION PROGRAM Outpatient Referral Routine Consult Smoking Expected: 04/28/2023 (Approximate), Expires: 04/21/2024 documented as of this encounter Visit Diagnoses Diagnosis Smoking- Primary Tobacco use disorder documented in this encounter Care Teams Beach Attendant Relationship Specialty Start Date End Date Carrington Calderon MD [address] [place] [phone] PCP - General Internal Medicine - Primary Care 12/09/20 Amrita Asencio Chief Console Operator 04/21/23 documented as of this encounter
--- OUTSIDE RECORDS SUMMARY | 2024-01-02 06:10 | XMS_ITS | Encounter Summary ---
Author Organization [facility] Address [address] [place] [address] Care Team Providers Care Leveler Helper Name Role Phone Carrington Calderon MD Primary Care Provi anders Abigail Díaz Unavailable Reason for Visit * Reason Comments Nicotine Dependence Encounter Details Date Type Department Care Team (Late st Contact Info) Description 05/24/2023 Community Health Team [facility] Adult Primary Care - [place] [address] [place], [place] [phone] Kylah Wilson Social History Tobacco Use Types [...] [facility] Adult Primary Care - [address] [phone] Carrington Calderon MD [address] [phone] 02/27/2024 8:30 EDT Telemedicine [facility] Sleep Program - [address] 501441 Dwight Colbert [address] [place] [address] 02/29/2024 10:30 EDT Appointment [facility] Radiology Nuclear Medicine and PET - [address] [phone] 02/29/2024 14:30 EDT Appointment [facility] Radiology Nuclear Medicine and PET [address] 121911 03/01/2024 8:00 EDT Appointment [facility] Radiology Nuclear Medicine and PET - [address] [phone] 03/01/2024 9:30 EDT Appointment [facility] Radiology Nuclear Medicine and PET - [address] [address] documented as of this encounter Visit Diagnoses Not on filedocumented in this encounter Care Teams Leveler Helper Relationship Specialty Start Date End Date Carrington Calderon MD [address] [place] [phone] PCP - General Internal Medicine - Primary Care 12/09/20 Abigail Díaz Channel Lip Stiffener Insoles 04/21/23 documented as of this encounter
--- OUTSIDE RECORDS SUMMARY | 2024-01-02 06:10 | XMS_ITS | Encounter Summary ---
Author Organization [facility] Address [address] [place] [address] Care Team Providers Care Field Assessor Name Role Phone Carrington Calderon MD Primary Care Provi anders Reason for Referral * Consult (Routine/Next Available) - Closed Specialty Diagnoses / Procedures Referred By Kit goode Referred To Contact Diagnoses Cyclical vomiting Carrington Calderon MD [address] [place] [phone] Mallorie Martinez MD [address] [place] [phone] Referral ID Status Reason Start Date Expiration Date V isits Requested Visits Authorized [id number] Closed Specialty Services Required 03/16/2023 1 1 Question Answer Reason for Request: cyclic menstrual vomiting- LARC with suppression of menses Practice Site (External Referral Only): [facility] Reason for Visit * Reason Comments Follow-up Diabetes Encounter Details Date Type Department Care Team ([facility] st Contact Info) Description 03/16/2023 10:15 EDT Telemedicine [facility] Adult Primary Care - [address] [address] Carrington Calderon MD [address] [phone] Cyclical vomiting (Primary Dx); Anxiety and depression; Type 2 diabetes mellitus with diabetic polyneuropathy, with long-term current use of insulin ([facility]) (HCC); Night sweats; Lymphocytosis; Abnormal TSH [...] slept in a penitentiary (including now)? No 11/17/2022 Interpersonal Safety Answer Date Record ed How often does anyone, audrey waldron family, hit, punch or physically hurt you? Never 11/17/2022 How often does anyone, audrey wadlron family, insult, scream, curse or threaten to [...] long-term current use of insulin ([facility]) ([facility]): Stella is in need of new Dexcom supplies. I sent a prescription to her pharmacy. 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 All 3 children have [...] [facility] [address] [address] Carrington Calderon MD [address] [place] [phone] 02/27/2024 8:30 EDT Telemedicine [facility] Sleep Program - [address] [address] Dwight Colbert [address] [place], [place] [phone] 02/29/2024 10:30 EDT Appointment [facility] Radiology Nuclear Medicine and PET [address] [address] 02/29/2024 14:30 EDT Appointment [facility] Radiology Nuclear Medicine and PET [address] [address] 03/01/2024 8:00 EDT Appointment [facility] Radiology Nuclear Medicine and PET [address] [address] 03/01/2024 9:30 EDT Appointment [facility] Radiology Nuclear Medicine and PET [address] [phone] Scheduled Referrals Name Type Priority Associated Diagnoses [...] 4.00 - 12.40 K/cmm 03/17/2023 14:47 EDT [facility] RBC 4.25 3.86 - 5.04 M/cmm 03/17/2023 14:47 EDT [facility] Hemoglobin 13.8 11.6 - 15.2 g/dL 03/17/2023 14:47 EDT [facility] HCT 39.0 34.9 - 44.4 % 03/17/2023 14:47 EDT [facility] MCV 92 81 - 98 fL 03/17/2023 14:47 [facility] MCH 32.5 26.7 - 33.3 pg 03/17/2023 14:47 [facility] MCHC 35.4 32.1 - 35.9 g/dL 03/17/2023 14:47 [facility] RDW-CV 12.7 <14.7 % 03/17/2023 14:47 [facility] RDW-SD 42.2 <50.4 fl 03/17/2023 14:47 [facility] PLT 435(H) 141 - 377 K/cmm 03/17/2023 14:47 [facility] MPV 9.5 9.5 - 12.7 fL 03/17/2023 14:47 [facility] % Neutrophils 44.3 % 03/17/2023 14:47 [facility] % Lymphocytes 44.1 % 03/17/2023 14:47 [facility] % Monocytes 7.4 % 03/17/2023 14:47 [facility] % Eosinophils 3.3 % 03/17/2023 14:47 [facility] % Basophils 0.6 % 03/17/2023 14:47 [facility] % Immature Grans 0.3 % 03/17/20 14:47 [facility] Absolute Neutrophils 7.09 2.20 - 8.85 K/cmm 03/17/2023 14:47 [facility] Absolute Lymphocytes 7.06(H) 1.09 - 3.30 K/cmm 03/17/2023 14:47 [facility] Absolute Monocytes 1.19(H) 0.10 - 0.80 K/cmm 03/17/2023 14:47 [facility] Absolute Eosinophils 0.53 0.03 - 0.61 K/cmm 03/17/2023 14:47 [facility] ABS Basophils 0.09 0.01 - 0.11 K/cmm 03/17/2023 14:47 [facility] Absolute Immature Grans 0.05 0.00 - 0.06 K/cmm 03/17/2023 14:47 [facility] Type of Differential: Auto 03/17/2023 14:47 [facility] Blood VENOUS BLOOD / Unknown Venipuncture / Unknown 03/17/2023 13:52 EDT 03/17/2023 13:52 EDT Carrington Calderon MD PACKAGES & DNA PROBE ORDERABLES [facility] [address] [place] [address] * LEUKEMIA/LYMPHOMA PANEL BY FLOW CYTOMETRY (03/17/2023 13:52 EDT) Final Immunophenotypic Interpretation Peripheral blood, flow cytometric analysis: - No immunophenotypic evidence of a clonal cell population. See comment. 12:55 [facility] Comment The results of flow cytometry show no immunophenotypic evidence of involvement by a clonal lymphoproliferative disorder. Correlation of these findings with morphologic and clinical data is essential. 3 12:55 [facility] Attestation By the signature below, the attending physician certifies that they have 1) personally conducted a gross and/or microscopic examination of the described specimen(s), and/or personally interpreted the results of laboratory testing of the described specimen(s), and 2) personally rendered or confirmed the above diagnosis. 3 12:55 [facility] at 1255 Clinical History night sweats, lymphocytosis, smudge cells 3 12:55 [facility] Description The specimen consists [...] is no increase in blasts. 3 12:55 [facility] Flow Markers CD10, CD117, CD11c, CD16, CD19, CD20, CD3, CD33, CD34, CD38, CD4, CD45, CD5, CD56, CD8, HLA-DR, [place], and Lambda 3 12:55 [facility] FDA Disclaimer This test was developed and its performance characteristics determined by the Department of Pathology and Laboratory Medicine, [facility], [place], [place] It has not been cleared or [...] high complexity clinical laboratory testing. 3 12:55 [facility] Sample Analyzed Date and Time 03/18/23 at 1106 3 12:55 [facility] Scanned Images 3 12:55 [facility] Blood VENOUS BLOOD / Unknown Venipuncture / Unknown 03/17/2023 13:52 EDT 03/17/2023 13:52 EDT Carrington Calderon MD PATHOLOGY O RDERABLES [facility] [address] [place] [address] * THYROID-STIMULATING IMMUNOGLOBULIN (TSI), SERUM (03/14/2023 15:19 EDT) Thyroid-Stimulati ng Immunoglobin, S <1.0 <=1.3 TSI index 03/25/2023 15:[address] [facility] Comment: Test Performed by: [facility] [address] [place] [address] Candy Depositing Machine Operator: Wiley Fry M.D. Ph.D.; CLIA# [id number] Blood VENOUS BLOOD / Unknown Venipuncture / Unknown 03/14/2023 15:19 EDT 03/18/2023 16:07 EDT Carrington Calderon MD CHEMISTRY & BLOOD GAS ORDERABLES [facility] [address] [place] [address] * T3, TOTAL (03/14/2023 15:19 EDT) [facility] T3, Total 143 97 - 169 ng/dL 03/16/2023 15:56 EDT [facility] Blood VENOUS BLOOD / Unknown Venipuncture / Unknown 03/14/2023 15:19 EDT 03/14/2023 15:19 EDT Carrington Calderon MD CHEMISTRY & BLOOD GAS ORDERABLES [facility] [address] [place] [address] * T4 FREE (03/14/2023 15:19 EDT) [facility] T4, Free 1.3 0.8 - 2.2 ng/dL 03/16/2023 14:42 EDT [facility] Blood VENOUS BLOOD / Unknown Venipuncture / Unknown 03/14/2023 15:19 EDT 03/14/2023 15:19 EDT Carrington Calderon MD CHEMISTRY & BLOOD GAS ORDERABLES [facility] [address] [place] [address] * (ABNORMAL) THYROID CASCADE (03/14/2023 15:19 EDT) TSH 0.44(L) 0.47 - 4.68 mIU/L 03/16/2023 14:03 EDT [facility] Comment:Turbid sample identi fied, interpret with caution as turbidity may affect result. Blood VENOUS BLOOD / Unknown Venipuncture / Unknown 03/14/2023 15:19 EDT 03/14/2023 15:19 EDT Narrative [facility] - 03/16/2023 14:03 EDT NOTE: The results of this assay can be falsely lowered due to the consumption of Biotin. Carrington Calderon MD CHEMISTRY & BLOOD GAS ORDERABLES [facility] [address] [place] [address] documented in this encounter Visit Diagnoses Diagnosis Cyclical vomiting- Primary Persistent vomiting Anxiety and depression Dysthymic disorder Type 2 diabetes mellitus with diabetic polyneuropathy, with long-term current use of insulin ([facility]) (HCC) Night sweats Generalized hyperhidrosis Lymphocytosis Lymphocytosis [...] hyperglycemia, with long-term current use of insulin ([facility]) Use 1 pen needle as directed 4 times daily. 09/02/2020 03/16/2023 documented as of this encounter Care Teams Field Assessor Relationship Specialty Start Date End Date Carrington Calderon MD 1 [facility] Level [address] [place] [phone] PCP - General Internal Medicine - Primary Care 12/09/20 documented as of this encounter
--- OUTSIDE RECORDS SUMMARY | 2024-01-02 06:10 | XMS_ITS | Encounter Summary ---
Author Organization [facility] Address [address] [place] [address] Care Team Providers Care Honing Machine Operator Production Name Role Phone Carrington Calderon MD Primary Care Provi anders Abigail Díaz Unavailable [phone] Reason for Visit * Reason Onset Date Comments Appointment Related 06/20/2023 Encounter Details Date Type Department Care Team (Late st Contact Info) Description 06/20/2023 Telephone [facility] Adult Primary Care - [address] [address] Carrington Calderon MD 1 [facility] Level [address] [place] [phone] Appointment Related Social History Tobacco [...] in a penitentiary (including now)? No 06/14/2023 Interpersonal Safety Answer [...] Encounter - Jose Luis Wilson - 06/20/2023 1289 EST LVM for patient to get blood work done prior to upcoming visit on 06/27/23. Jose Luis Wilson 06/20/2023 15:40 documented in this encounter Plan of Treatment Upcoming Encounters Date Type Department Care Team (Late st Contact Info) Description 02/21/2024 9:45 EDT Office Visit [facility] Adult Primary Care - [address] [address] Carrington Calderon MD [address] [phone] 02/27/2024 8:30 EDT Telemedicine [facility] Sleep Program - [address] [phone] Dwight Colbert [address] [place] [phone] 02/29/2024 10:30 EDT Appointment [facility] Radiology Nuclear Medicine and PET - [address] [phone] 02/29/2024 14:30 EDT Appointment [facility] Radiology Nuclear Medicine and PET - [address] [phone] 03/01/2024 8:00 EDT Appointment [facility] Radiology Nuclear Medicine and PET - [address] [address] 03/01/2024 9:30 EDT Appointment [facility] Radiology Nuclear Medicine and PET [address] [address] documented as of this encounter Visit Diagnoses Not on filedocumented in this encounter Care Teams Honing Machine Operator Production Relationship Specialty Start Date End Date Carrington Calderon MD 1 [facility] 1 [place] [phone] PCP - General Internal Medicine - Primary Care 12/09/20 Abigail Díaz Mooner 04/21/23 documented as of this encounter
--- OUTSIDE RECORDS SUMMARY | 2024-01-02 06:10 | XMS_ITS | Encounter Summary ---
Author Organization [facility] Address [address] [place] [address] Care Team Providers Care Forensic Analyst Name Role Phone Carrington Calderon MD Primary Care Provi anders Abigail Díaz Unavailable Carmelo Hendrickson Unavailable Unavailable Reason for Visit * Reason Onset Date Comments Appointment Related 05/04/2023 Encounter Details Date Type Department Care Team (Late st Contact Info) Description 05/04/2023 Telephone [facility] Endocrinology - [facility] [address] [place] [address] Amilcar Ortega MD [address] [facility] [address] [place] [address] Appointment Related Social History Tobacco [...] - 05/04/2023 0823 EST Patient accepted zoom SENIOR FIREWALL ENGINEER opening with Dr. Ortega today at 4:00. documented in this encounter Plan of Treatment Upcoming Encounters Date Type Department Care Team (Late st Contact Info) Description 02/21/2024 9:45 EDT Office Visit [facility] Adult Primary Care - [address] [address] Carrington Calderon MD [address] [phone] 02/27/2024 8:30 EDT Telemedicine [facility] Sleep Program - [address] [address] Dwight Colbert [address] [place] [phone] 02/29/2024 10:30 EDT Appointment [facility] Radiology Nuclear Medicine and PET - [address] [phone] 02/29/2024 14:30 EDT Appointment [facility] Radiology Nuclear Medicine and PET - [address] [phone] 03/01/2024 8:00 EDT Appointment [facility] Radiology Nuclear Medicine and PET - [address] [phone] 03/01/2024 9:30 EDT Appointment [facility] Radiology Nuclear Medicine and PET - [address] [phone] documented as of this encounter Visit Diagnoses Not on filedocumented in this encounter Care Teams Forensic Analyst Relationship Specialty Start Date End Date Carrington Calderon MD 1 [facility] Level 1 [place] [phone] PCP - General Internal Medicine - Primary Care 12/09/20 Abigail Díaz Property Insurance Inspector 04/21/23 Carmelo Hendrickson Coordinator 12/01/23 documented as of this encounter
--- OUTSIDE RECORDS SUMMARY | 2024-01-02 06:10 | XMS_ITS | Encounter Summary ---
Author Organization [facility] Address [address] [place] [address] Care Team Providers Care Outpatient Physical Therapist Assistant Name Role Phone Carrington Calderon MD Primary Care Provi anders Reason for Visit * Reason Onset Date Comments Prior Auth, Medication 04/03/2023 Encounter Details Date Type Department Care Team (Late st Contact Info) Description 04/03/2023 Telephone [facility] Adult Primary Care [address] [address] Carrington Calderon MD 1 [facility] Level [address] [place] [phone] Prior Auth, Medication Social History [...] polyneuropathy, with long-term current use of insulin ([facility]) Inject 12 Units into the skin [...] Description 02/21/2024 9:45 EDT Office Visit [facility] Adult Primary Care - [address] [phone] Carrington Calderon MD [address] [phone] 02/27/2024 8:30 EDT Telemedicine [facility] Sleep Program - [address] [address] Dwight Colbert [address] [place] [address] 02/29/2024 10:30 EDT [facility] Rad[facility] Nuclear Medicine and PET - [address] [address] 02/29/2024 14:30 EDT [facility] Radiology Nuclear Medicine and PET - [address] [address] 03/01/2024 8:00 EDT [facility] Radiology Nuclear Medicine and PET - [address] [phone] 03/01/2024 9:30 EDT Appointment [facility] Radiology Nuclear Medicine and PET [address] [address] documented as of this encounter Visit Diagnoses Diagnosis Type 2 diabetes mellitus with diabetic polyneuropathy, with long-term current use of insulin ([facility] Primary documented in this encounter Discontinued Medications Medication Sig Discontinue Reason Start Date End Da te NOVOLOG FLEXPEN U-100 INSULIN 100 unit/mL (3 mL) injectable penIndications:Type 2 diabetes mellitus with diabetic polyneuropathy, with long-term current use of insulin ([facility]) INJECT 12 UNITS THREE TIMES DAILY WITH MEALS Insurance does not cover 04/01/2023 04/04/2023 insulin lispro (HUMALOG KWIKPEN INSULIN) 100 unit/mL injectable penIndications:Type 2 diabetes mellitus with diabetic polyneuropathy, with long-term current use of insulin ([facility]) Inject 8-14 Units into the skin 3 times daily with meals. Reorder 11/18/2022 04/04/2023 documented as of this encounter Care Teams Outpatient Physical Therapist Assistant Relationship Specialty Start Date End Date Carrington Calderon MD 1 [facility] [address] [place] [phone] PCP - General Internal Medicine - Primary Care 12/09/20 documented as of this encounter
--- OUTSIDE RECORDS SUMMARY | 2024-01-02 06:10 | XMS_ITS | Encounter Summary ---
Author Organization [facility] Address [address] [place] [address] Care Team Providers Care Street Light Servicer Name Role Phone Carly Calderon MD Primary Care Provi anders Abigail Díaz Unavailable Reason for Referral * Consult (Routine/Next Available) - Closed Specialty Diagnoses / Procedures Referred By Kit goode Referred To Contact Sleep Medicine Diagnoses Primary insomnia Carly Calderon MD [address] [phone] [facility] 1 [place] [address] Referral ID Status Reason Start Date Expiration Date V isits Requested Visits Authorized [id number] Closed Specialty Services Required 06/27/2023 1 1 Question Answer Reason for referral Diffifulty initiating sleep, Difficulty maintaining sleep Patient Type: Adult * Consult (Routine/Next Available) - Specialty Report Received Specialty Diagnoses / Procedures Referred By Kit goode Referred To Contact Hematology Diagnoses Night sweats Lymphocytosis Carly Calderon MD [address] [phone] [facility] Ep2 Hem/Onc [address] [place] [address] Referral ID Status Reason Start Date Expiration Date Visits Requested Visits Authorized [id number] Specialty Report Received Specialty Services Required 06/27/2023 1 1 Question Answer Reason for Request: night sweats Reason for Visit * Reason Comments Annual Exam Gynecologic Exam Encounter Details Date Type Department Care Team (Late st Contact Info) Description 06/27/2023 14:45 EST Office Visit [facility] Adult Primary Care [facility] 1 [place], [place] [phone] Carly Calderon MD 1 [facility] Level 1 [place] [address] Cyclic vomiting syndrome (Primary Dx); Anxiety; Chronic midline low back pain without sciatica; Type 2 diabetes mellitus with diabetic polyneuropathy, with long-term current use of insulin (HCC-CMS); Primary insomnia; Diabetic polyneuropathy associated with type 2 diabetes mellitus ([facility]); Night sweats; Lymphocytosis; Cervical cancer screening; Candidal [...] polyneuropathy associated with type 2 diabetes mellitus ([facility]) Take 1 Capsule by mouth every [...] polyneuropathy, with long-term current use of insulin ([facility]) Take 1 Tablet by mouth daily. 90 Tablet 06/27/2023 empagliflozin (JARDIANCE) 25 mg tabletIndications:Type 2 diabetes mellitus with diabetic polyneuropathy, with long-term current use of insulin ([facility]) Take 1 Tablet by mouth daily. 90 Tablet 06/27/2023 insulin glargine (LANTUS SOLOSTAR/SEMGLEE) 100 unit/mL (3 mL) injection penIndications:Type 2 diabetes mellitus with diabetic polyneuropathy, with long-term current use of insulin ([facility]) Inject 44 Units into the skin at bedtime. 36 mL 06/27/2023 ondansetron (ZOFRAN-ODT) 4 mg disintegrating tabletIndications:Cyclic vomiting syndrome Take 1 Tablet by mouth every 8 hours as needed for Nausea. 30 Tablet 11 06/27/2023 SUMAtriptan (IMITREX) 20 mg/actuation nasal spray Instill 1 [place] into right nostril as needed for Migraine. 6 Each 06/27/2023 06/29/2023 HUMALOG KWIKPEN INSULIN 100 unit/mL injectable penIndications:Type 2 diabetes mellitus with diabetic polyneuropathy, with long-term current use of insulin ([facility]) 8 units with breakfast, 12 units with lunch/dinner 30 mL 06/27/2023 11/11/2023 traMADol (ULTRAM) 50 mg tabletIndications:Chroni c midline low back pain without sciatica Take 1 Tablet by mouth every 6 hours as needed for Pain. Daily Max: 200 mg 30 Tablet 5 06/27/2023 12/20/2023 LORazepam (ATIVAN) 0.5 mg tabletIndications:Anxiet y Take 1 Tablet by mouth daily as needed for Anxiety. Daily Max: 0.5 mg 30 Tablet 3 06/27/2023 12/20/2023 documented in this encounter Progress Notes * Carly Calderon MD - 06/27/2023 5147 EST Images from the original note were [...] polyneuropathy, with long-term current use of insulin ([facility]): CGM data reviewed in detail today. GMI [...] polyneuropathy associated with type 2 diabetes mellitus ([facility]): We discussed considering an increase in her [...] Luis Wilson present during the exam as devops and floral assistant. - PAP TEST Candidal intertrigo: Rash is [...] tried this. She continues to take Reglan [id number] and both during and her episodes of [...] 9:45 EDT Office Visit [facility] Adult Primary Care - [address] [phone] Carly Calderon MD [address] [phone] 02/27/2024 8:30 EDT Telemedicine [facility] Sleep Program - [address] [phone] Dwight Colbert [address] [place] [address] [phone] 02/29/2024 10:30 EDT Appointment [facility] Radiology Nuclear Medicine and PET - [address] [phone] 02/29/2024 14:30 EDT Appointment [facility] Radiology Nuclear Medicine and PET [address] [address] 03/01/2024 8:00 EDT Appointment [facility] Radiology Nuclear Medicine and PET [address] [address] 03/01/2024 9:30 EDT Appointment [facility] Radiology Nuclear Medicine and PET [address] [address] Scheduled Referrals Name Type Priority Associated Diagnoses [...] types, PCR Negative Negative 07/13/2023 16:25 EST [facility] Comment:No E6 or E7 mRNA is detected from HPV types 16,18,31,33,35,39,45,51,52,56,58,59,66, and 68 by wire taper mediated amplification. Pap Test CERVIX UTERI STRUCTURE / Unknown 06/27/2023 16:00 EST 07/11/2023 13:44 EST Carly Calderon MD MICROBIOLOG Y - GENERAL ORDERABLES [facility] [address] [place] [id number] * PAP TEST (06/27/2023 16:00 EST) Specimens A. Cervix and/or Endocervix , ThinPrep Imaging System with Manual Evaluation 07/13/2023 16:25 [facility] Specimen Adequacy Satisfactory for Evaluation - transformation zone component absent 07/13/2023 16:25 [facility] General Categorization Negative for intraepithelial lesion or malignancy 07/13/2023 16:25 [facility] Attestation . 07/13/2023 16:25 [facility] at 1625 Clinical History screening 07/13/19 24 16:25 [facility] HPV The result for the Human Papillomavirus (HPV) Detection-High Risk Types is Negative. No E6 or E7 mRNA is detected from HPV types 16,18,31,33,35,39 ,45,51,52,56,58,5 9,66, and 68 by wire taper mediated amplification.Lorena ting was performed on specimen [id number] and was resulted on 07/13/2023 1625 EST by JANET, LAB INSTRUMENT RESULTS IN 07/13/2023 16:25 [facility] Performing Lab [facility] 07/13/2023 16:25 [facility] Scanned Images 07/13/2023 16:25 [facility] Pap Test CERVIX UTERI STRUCTURE / Unknown 06/27/2023 16:00 EST 06/27/2023 16:00 EST Carly Calderon MD PATHOLOGY O RDERABLES [facility] [address] [place] [address] documented in this encounter Visit Diagnoses Diagnosis [...] Reorder 11/17/2022 06/27/2023 traMADol (ULTRAM) 50 mg tabletIndications:Well Site Drilling Engineer gordo midline low back pain without sciatica Take 1 Tablet by mouth every 6 hours as needed for Pain. Daily Max: 200 mg Reorder 02/01/2023 06/27/2023 blood glucose test strips One Touch Verio IQ or other brand compatible with meter and covered by patient's insurance. Testing QID. 08/11/2020 06/27/2023 blood glucose test strips Brand: FreeHopscotchyle Precision Cristo, use as directed if Freestyle Vignesh censor isnt working 10/06/2020 06/27/2023 blood glucose meterIndications:Type 2 diabetes mellitus with diabetic polyneuropathy, with long-term current use of insulin ([facility]) One Touch Verio Flex meter. 12/21/2021 06/27/2023 empagliflozin (JARDIANCE ORAL) Take by mouth. 06/27/2023 SEMGLEE,INSULIN GLARG-YFGN,PEN 100 unit/mL (3 mL) insulin pen INJECT 40 UNITS SUBCUTANEOUSLY AT BEDTIME 04/01/2023 06/27/2023 SITagliptin phosphate (JANUVIA) 100 mg tabletIndications:Type 2 diabetes mellitus with diabetic polyneuropathy, with long-term current use of insulin ([facility]) Take 1 Tablet by mouth daily. Reorder 11/17/2022 06/27/2023 insulin glargine (LANTUS SOLOSTAR/SEMGLEE) 100 unit/mL (3 mL) injection penIndications:Type 2 diabetes mellitus with diabetic polyneuropathy, with long-term current use of insulin ([facility]) Inject 40 Units into the skin at bedtime. Reorder 11/17/2022 06/27/2023 HUMALOG KWIKPEN INSULIN 100 unit/mL injectable penIndications:Type 2 diabetes mellitus with diabetic polyneuropathy, with long-term current use of insulin (HCC-CMS) Inject 12 Units into the skin 3 times daily with meals. Reorder 04/04/2023 06/27/2023 SUMAtriptan (IMITREX) 20 mg/actuation nasal spray Instill 1 [place] into right nostril as needed for Migraine. Reorder 05/13/2023 06/27/2023 metoclopramide HCl (REGLAN) 10 mg tablet Take 1 Tablet by mouth 3 times daily before meals. Reorder 03/02/2022 06/27/2023 gabapentin (NEURONTIN) 300 mg capsuleIndications:Charo betic polyneuropathy associated with type 2 diabetes mellitus (HCC-CMS) Take 1 Capsule by mouth every morning AND 3 Capsules at bedtime. Reorder 11/17/2022 06/27/2023 documented as of this encounter Care Teams Street Light Servicer Relationship Specialty Start Date End Date Carly Calderon MD 1 [facility] 1 [place] [address] PCP - General Internal Medicine - Primary Care 12/09/20 Abigail Díaz Administrative Services Assistant 04/21/23 documented as of this encounter
--- OUTSIDE RECORDS SUMMARY | 2024-01-02 06:10 | XMS_ITS | Encounter Summary ---
Author Organization [facility] Address [address] [place] [address] Care Team Providers Care Mailing Machine Helper Name Role Phone [place] Calderon MD Primary Care Provi anders Abigail Díaz Unavailable [phone] Carmelo Hendrickson Unavailable Unavailable Reason for Visit * Reason Comments Medications Refill Encounter Details Date Type Department Care Team (Late st Contact Info) Description 03/31/2023 Refill [facility] Adult Primary Care - [address] [phone] Vicki Mosqueda MD [address] [place] [id number] Medications Refill Social History Tobacco Use Types [...] [place] [facility] ([facility])? No 11/17/2022 Interpersonal Safety Answer [...] Sig: INJECT 40 UNITS SUBCUTANEOUSLY AT BEDTIME [facility] [address] [place] [address] Confirmed Pharmacy? Yes Patient out of medication? Unknown How many pills does patient have left? unknown Last Refill Date: 11/17/22 Refills left? (explain exceptions requiring early refill) No Recent Visits Date Type Provider Dept 11/17/22 Office Visit [place] Calderon MD [facility] Adult Prim Care 09/02/22 Office Visit Nimisha Clifton NP [facility] Adult Prim Care 05/20/22 Office Visit Rachel Stein PA-C [facility] Adult Prim Care Showing recent visits within past 540 days with a meds authorizing provider and meeting all other requirements Future Appointments Date Type Provider Dept 06/27/23 Appointment [place] Calderon MD [facility] Adult Prim Care Showing future appointments within next 150 days with a meds authorizing provider and meeting all other requirements Future appointment: Already Scheduled JOSS WASHINGTON RN 04/01/2023 10:43 documented in this encounter Plan of Treatment Upcoming Encounters Date Type Department Care Team (Late st Contact Info) Description 02/21/2024 9:45 EDT Office Visit [facility] Adult Primary Care - [address] [address]201 [place] Calderon MD [address] [place] [phone] 02/27/2024 8:30 EDT Telemedicine [facility] Sleep Program - [address] [phone] Dwight Colbert [address] [place] [phone] 02/29/2024 10:30 EDT Appointment [facility] Radiology Nuclear Medicine and PET [address] [phone] 02/29/2024 14:30 EDT Appointment [facility] Radiology Nuclear Medicine and PET [address] [phone] 03/01/2024 8:00 EDT Appointment [facility] Radiology Nuclear Medicine and PET [address] [phone] 03/01/2024 9:30 EDT Appointment [facility] Radiology Nuclear Medicine and PET [address] [phone] documented as of this encounter Visit Diagnoses Not on filedocumented in this encounter Care Teams Mailing Machine Helper Relationship Specialty Start Date End Date [place] Calderon MD [address] [place] [phone] PCP - General Internal Medicine - Primary Care 12/09/20 Abigail Díaz Distance Education Coordinator 04/21/23 Carmelo Hendrickson Coordinator 12/01/23 documented as of this encounter
--- OUTSIDE RECORDS SUMMARY | 2024-01-02 06:10 | XMS_ITS | Encounter Summary ---
Author Organization [facility] Address [address] [place] [address] Care Team Providers Care Generating Plant Superintendent Name Role Phone [place] Calderon MD Primary Care Provi anders Reason for Visit * Reason Onset Date Comments Medications Refill 03/16/2023 Encounter Details Date Type Department Care Team (Late st Contact Info) Description 03/16/2023 Refill [facility] Adult Primary Care [address] [phone] [place] Calderon MD 1 [facility] Level 1 [place] [address] Medications Refill Social History Tobacco [...] 0946 EDT omeprazole (PRILOSEC) 20 mg capsule [[id number]] ?? Order Details Dose: 20 mg Route: oral Frequency: DAILY Dispense Quantity: 90 Capsule Refills: 3 ?? Sig: Take 1 Capsule by mouth daily. ?? Start Date: 12/17/22 End Date: -- Written Date: 12/17/22 ondansetron (ZOFRAN-ODT) 4 mg disintegrating tablet [[id number]] ?? Order Details Dose: 4 mg Route: oral Frequency: EVERY 8 HOURS PRN for Nausea Dispense Quantity: 30 Tablet Refills: 11 ?? Sig: Take 1 Tablet by mouth every 8 hours as needed for Nausea. ?? Start Date: 11/17/22 End Date: -- Written Date: 11/17/22 Expiration Date: -- ?? insulin glargine (LANTUS SOLOSTAR/SEMGLEE) 100 unit/mL (3 mL) injection pen [[id number]] ?? Order Details Dose: 40 Units Route: subcutaneous Frequency: AT BEDTIME Dispense Quantity: 36 mL Refills: 4 ?? Sig: Inject 40 Units into the skin at bedtime. ?? Start Date: 11/17/22 End Date: -- Written Date: 11/17/22 LORazepam (ATIVAN) 0.5 mg tablet [[id number]] ?? Order Details Dose: 0.5 mg Route: [...] 20 mg capsule [[place] Calderon] Preferred pharmacy: [facility] [address] [place] [address] documented in this encounter Plan of Treatment Upcoming Encounters Date Type Department Care Team (Late st Contact Info) Description 02/21/2024 9:45 EDT Office Visit [facility] Adult Primary Care - [address] [phone] [place] Calderon MD [address] [phone] 02/27/2024 8:30 EDT Telemedicine [facility] Sleep Program - [address] [phone] Dwight Colbert [address] [place] [phone] 02/29/2024 10:30 EDT Appointment [facility] Radiology Nuclear Medicine and PET - [address] [phone] 02/29/2024 14:30 EDT Appointment [facility] Radiology Nuclear Medicine and PET - [address] [address] 03/01/2024 8:00 EDT Appointment [facility] Radiology Nuclear Medicine and PET [address] [address] 03/01/2024 9:30 EDT Appointment [facility] Radiology Nuclear Medicine and PET - [address] [phone] documented as of this encounter Visit Diagnoses Diagnosis Anxiety Anxiety state, unspecified Type 2 diabetes mellitus with diabetic polyneuropathy, with long-term current use of insulin ([facility]) Gastroparesis documented in this encounter Care Teams Generating Plant Superintendent Relationship Specialty Start Date End Date [place] Calderon MD 1 [facility] 1 [place] [address] PCP - General Internal Medicine - Primary Care 12/09/20 documented as of this encounter
--- OUTSIDE RECORDS SUMMARY | 2024-01-02 06:10 | XMS_ITS | Encounter Summary ---
Author Organization [facility] Address [address] [place] [address] Care Team Providers Care Fire Lookout Name Role Phone [place] Calderon MD Primary Care Provi anders Abigail Díaz Unavailable [phone] Carmelo Hendrickson Unavailable Unavailable Reason for Visit * Reason Onset Date Comments Medications Refill 07/06/2023 Encounter Details Date Type Department Care Team (Late st Contact Info) Description 07/06/2023 Refill [facility] Adult Primary Care - [address] [phone] [place] Calderon MD 1 [facility] Level 1 [place] [phone] Medications Refill Social History Tobacco Use Types [...] polyneuropathy, with long-term current use of insulin ([facility]) Inject 1 Each into the skin every 3 months. 1 Each 4 07/07/2023 documented in this encounter Miscellaneous Notes * Telephone Encounter - Berenice Mahan - 07/06/2023 0953 EST Medication(s) Requested/ Last Ordered: Dexcom Transmitter 03/16/23 Preferred Pharmacy: [facility] [address] [place] [address] Is patient out of medication? Yes Last Visit Date with Ordering Provider: 06/27/2023 Next Non-Acute Visit Date Scheduled with Care Team: 08/15/2023 Berenice Mahan 07/06/2023 9:54 documented in this encounter Plan of Treatment Upcoming Encounters Date Type Department Care Team (Late st Contact Info) Description 02/21/2024 9:45 EDT Office Visit [facility] Adult Primary Care - [address] [address]201 [place] Calderon MD 1 [facility] 1 [place] [phone] 02/27/2024 8:30 EDT Telemedicine [facility] Sleep Program - [address] [phone] Dwight Colbert [address] [place] [address] 02/29/2024 10:30 EDT Appointment [facility] Radiology Nuclear Medicine and PET - [address] [address] 02/29/2024 14:30 EDT Appointment [facility] Radiology Nuclear Medicine and PET [address] [phone] 03/01/2024 8:00 EDT Appointment [facility] Radiology Nuclear Medicine and PET - [address] 142451 03/01/2024 9:30 EDT Appointment [facility] Radiology Nuclear Medicine and PET [address] [phone] documented as of this encounter Visit Diagnoses Diagnosis Type 2 diabetes mellitus with diabetic polyneuropathy, with long-term current use of insulin ([facility]) ([facility]) documented in this encounter Discontinued Medications Medication Sig Discontinue Reason Start Date End Da te Blood-Glucose Transmitter (DEXCOM G6 TRANSMITTER) deviceIndications:Type 2 diabetes mellitus with diabetic polyneuropathy, with long-term current use of insulin ([facility]) Inject 1 Each into the skin every 3 months. Reorder 03/16/2023 07/06/2023 documented as of this encounter Care Teams Fire Lookout Relationship Specialty Start Date End Date [place] Calderon MD 1 [facility] 1 [place] [phone] PCP - General Internal Medicine - Primary Care 12/09/20 Abigail Díaz Dat Instructor 04/21/23 Carmelo Hendrickson Coordinator 12/01/23 documented as of this encounter
--- OUTSIDE RECORDS SUMMARY | 2024-01-02 06:10 | XMS_ITS | Encounter Summary ---
Author Organization [facility] Address [address] [place] [address] Care Team Providers Care Wire Web Worker Name Role Phone [place] Calderon MD Primary Care Provi anders Reason for Visit * Reason Onset Date Comments Critical Value 03/14/2023 Encounter Details Date Type Department Care Team (Late st Contact Info) Description 03/14/2023 Telephone [facility] Adult Primary Care - [place] 1 [place], [place] [address] Car[place] Calderon MD 1 [facility] Level 1 [place] [phone] Critical Value Social History Tobacco [...] minutes. She was instructed to call the plastic extrusion operator MD if it was not going up [...] 02/21/2024 9:45 EDT Office Visit [facility] Adult Primary Care - [address] 750851 Car[place] Calderon MD [address] [place] [phone] 02/27/2024 8:30 EDT Telemedicine [facility] Sleep Program - [address] 522141 Dwight Colbert [address] [place] [phone] 02/29/2024 10:30 EDT Appointment [facility] Radiology Nuclear Medicine and PET [address] [phone] 02/29/2024 14:30 EDT Appointment [facility] Radiology Nuclear Medicine and PET [address] 901951 03/01/2024 8:00 EDT Appointment [facility] Radiology Nuclear Medicine and PET [address] [phone] 03/01/2024 9:30 EDT Appointment [facility] Radiology Nuclear Medicine and PET [address] [phone] documented as of this encounter Visit Diagnoses Not on filedocumented in this encounter Care Teams Wire Web Worker Relationship Specialty Start Date End Date [place] Calderon MD [address] [place] [phone] PCP - General Internal Medicine - Primary Care 12/09/20 documented as of this encounter
--- OUTSIDE RECORDS SUMMARY | 2024-01-02 06:10 | XMS_ITS | Encounter Summary ---
Author Organization [facility] Address [address] [place] [address] Care Team Providers Care Tube Puller Name Role Phone [place] Calderon MD Primary Care Provi anders Abigail Díaz Unavailable Encounter Details Date Type Department Care Team (Late st Contact Info) Description 05/26/2023 Patient Outreach [facility] Adult Primary Care - [place] 1 [place], [place] [address] Abigail Díaz Social History Tobacco Use Types [...] Abigail Díaz - 05/26/2023 1400 EST [employer] Television Repair Teacher Care Coordination Care management phone consult/visit as scheduled, Stella was not available when called by [facility]. personalized living manager left voicemail requesting call back to reschedule if needed CM sent MyCHart Letter, no further outreach will be conducted documented in this encounter Plan of Treatment Upcoming Encounters Date Type Department Care Team (Late st Contact Info) Description 02/21/2024 9:45 EDT Office Visit [facility] Adult Primary Care - [address] [phone] Car[place] Calderon MD [address] [phone] 02/27/2024 8:30 EDT Telemedicine [facility] Sleep Program - [address] [address] Dwight Colbert [address] [place] [phone] 02/29/2024 10:30 EDT Appointment [facility] Radiology Nuclear Medicine and PET - [address] [phone] 02/29/2024 14:30 EDT Appointment [facility] Radiology Nuclear Medicine and PET - [address] [phone] 03/01/2024 8:00 EDT Appointment [facility] Radiology Nuclear Medicine and PET - [address] [phone] 03/01/2024 9:30 EDT Appointment [facility] Radiology Nuclear Medicine and PET - [address] [phone] documented as of this encounter Visit Diagnoses Not on filedocumented in this encounter Care Teams Tube Puller Relationship Specialty Start Date End Date [place] Calderon MD 1 [facility] 1 [place] [phone] PCP - General Internal Medicine - Primary Care 12/09/20 Abigail Díaz Television Repair Teacher 04/21/23 documented as of this encounter
--- OUTSIDE RECORDS SUMMARY | 2024-01-02 06:10 | XMS_ITS | Encounter Summary ---
Author Organization [facility] Address [address] [place] [address] Care Team Providers Care Form Setter Steel Forms Name Role Phone Carrington Calderon MD Primary Care Provi anders Abigail Díaz Unavailable [phone] Carmelo Hendrickson Unavailable Unavailable Encounter Details Date Type Department Care Team (Late st Contact Info) Description 03/18/2023 Orders Only [facility] Adult Primary Care - [place] [address] [place], [place] [id number] Ratna Latham Abnormal TSH Social History Tobacco [...] place to sleep or slept in a long-term (including now)? No 11/17/2022 Interpersonal Safety Answer [...] Description 02/21/2024 9:45 EDT Office Visit [facility] Adult Primary Care - [address] [phone] Carrington Calderon MD [address] [phone] 02/27/2024 8:30 EDT Telemedicine [facility] Sleep Program - [address] [phone] Dwight Colbert [address] [place] [address] [phone] 02/29/2024 10:30 EDT Appointment [facility] Radiology Nuclear Medicine and [address] [phone] 02/29/2024 14:30 EDT Appointment [facility] Radiology Nuclear Medicine and [address] [phone] 03/01/2024 8:00 EDT Appointment [facility] Radiology Nuclear Medicine and PET [address] [id number] 03/01/2024 9:30 EDT Appointment [facility] Radiology Nuclear Medicine and PET [address] [phone] documented as of this encounter Procedures Procedure Name Priority Date/Time Associated Diagnosis Comments THYROID-STIMULATING IMMUNOGLOBULIN (TSI), SERUM Routine 03/14/2023 15:19 EDT Abnormal TSH documented in this encounter Results * THYROID-STIMULATING IMMUNOGLOBULIN (TSI), SERUM (03/14/2023 15:19 EDT) Thyroid-Stimulati ng Immunoglobin, S <1.0 <=1.3 TSI index 03/25/2023 15:55 EDT [facility] Comment: Test Performed by: [facility] [address] [place] [address] Resistor Tester: Wiley Fry M.D. Ph.D.; CLIA# [id number] Blood VENOUS BLOOD / Unknown Venipuncture / Unknown 03/14/2023 15:19 EDT 03/18/2023 16:07 EDT Carrington Calderon MD CHEMISTRY & BLOOD GAS ORDERABLES [facility] [address] [place] [address] documented in this encounter Visit Diagnoses Diagnosis Abnormal TSH Other abnormal clinical finding documented in this encounter Care Teams Form Setter Steel Forms Relationship Specialty Start Date End Date Carrington Calderon MD 1 [facility] 1 [place] [phone] PCP - General Internal Medicine - Primary Care 12/09/20 Abigail Díaz Business Account Executive 04/21/23 Carmelo Hendrickson Coordinator 12/01/23 documented as of this encounter
--- OUTSIDE RECORDS SUMMARY | 2024-01-02 06:10 | XMS_ITS | Encounter Summary ---
Author Organization [facility] Address [address] [place] [address] Care Team Providers Care Apricot Washer Name Role Phone Carrington Calderon MD Primary Care Provi anders Abigail Díaz Unavailable Reason for Visit * Reason Comments Med Change Request Encounter Details Date Type Department Care Team (Late st Contact Info) Description 06/27/2023 [facility] Adult Primary Care - [address] [address] Carrington Calderon MD [address] [phone] Med Change Request Social History [...] slept in a snf (including now)? No 06/14/2023 Interpersonal Safety Answer [...] Info) Description 02/21/2024 9:45 EDT Office Visit [facility] Adult Primary Care - [address] [phone] Carrington Calderon MD 1 [facility] 1 [place] [phone] 02/27/2024 8:30 EDT Telemedicine [facility] Sleep Program - [address] [phone] Dwight Colbert [address] [place] [phone] 02/29/2024 10:30 EDT Appointment [facility] Radiology Nuclear Medicine and PET - [address] [id number] 02/29/2024 14:30 EDT Appointment [facility] Radiology Nuclear Medicine and PET - [address] [phone] 03/01/2024 8:00 EDT Appointment [facility] Radiology Nuclear Medicine and PET - [address] [address] 03/01/2024 9:30 EDT Appointment [facility] Radiology Nuclear Medicine and PET - [address] [address] documented as of this encounter Visit Diagnoses Not on filedocumented in this encounter Care Teams Apricot Washer Relationship Specialty Start Date End Date Carrington Calderon MD 1 [facility] 1 [place] [address] PCP - General Internal Medicine - Primary Care 12/09/20 Abigail Díaz Senior Training And Development Rep 04/21/23 documented as of this encounter
--- OUTSIDE RECORDS SUMMARY | 2024-01-02 06:10 | XMS_ITS | Encounter Summary ---
Author Organization [facility] Address [address] [place] [address] Care Team Providers Care Jig Boring Machine Set Up Operator Name Role Phone Carrington Calderon MD Primary Care Provi anders Abigail Díaz Unavailable [phone] Carmelo Hendrickson Unavailable Unavailable Reason for Visit * Reason Comments Med Change Request Encounter Details Date Type Department Care Team (Late st Contact Info) Description 06/29/2023 [facility] Adult Primary Care - [address] [address] Carrington Calderon MD [address] [phone] Med Change Request Social History [...] in a senior living (including now)? No 06/14/2023 Interpersonal Safety Answer [...] INTO RIGHT NOSTRIL NEEDED FOR MIGRAINE HEADACHE [facility] [address] [place] [address] Confirmed Pharmacy? Yes Patient out of medication? Unknown How many pills does patient have left? unknown Last Refill Date: 06/27/23 Refills left? (explain exceptions requiring early refill) No Recent Visits Date Type Provider Dept 06/27/23 Office Visit Carrington Calderon MD [facility] Adult Prim Care 11/17/22 Office Visit Carrington Calderon MD [facility] Adult Prim Care 09/02/22 Office Visit Nimisha Clifton NP [facility] Adult Prim Care 05/20/22 Office Visit Rachel Stein PA-C [facility] Adult Prim Care Showing recent visits within past 540 days with a meds authorizing provider and meeting all other requirements Future Appointments Date Type Provider Dept 08/15/23 Appointment Carrington Calderon MD [facility] Adult Prim Care Showing future appointments within next 150 days with a meds authorizing provider and meeting all other requirements Future appointment: Already Scheduled JOSS WASHINGTON RN 06/29/2023 16:19 documented in this encounter Plan of Treatment Upcoming Encounters Date Type Department Care Team (Late st Contact Info) Description 02/21/2024 9:45 EDT Office Visit [facility] Adult Primary Care - [address] [phone] Carrington Calderon MD [address] [phone] 02/27/2024 8:30 EDT Telemedicine [facility] Sleep Program - [address] [phone] Dwight Colbert [address] [place] [address] [phone] 02/29/2024 10:[address] [facility] Radiology Nuclear Medicine and PET [address] [id number] 02/29/2024 14:[address] [facility] Radiology Nuclear Medicine and PET [address] [id number] 03/01/2024 8:[address] [facility] Radiology Nuclear Medicine and PET [address] [phone] 03/01/2024 9:[address] [facility] Radiology Nuclear Medicine and PET [address] [phone] documented as of this encounter Visit Diagnoses Not on filedocumented in this encounter Discontinued Medications Medication Sig Discontinue Reason Start Date End Da te SUMAtriptan (IMITREX) 20 mg/actuation nasal spray Instill 1 [place] into right nostril as needed for Migraine. 06/27/2023 06/29/2023 documented as of this encounter Care Teams Jig Boring Machine Set Up Operator Relationship Specialty Start Date End Date Carrington Calderon MD 1 [facility] Level 1 [place] [phone] PCP - General Internal Medicine - Primary Care 12/09/20 Abigail Díaz Sales Representative Leather Goods 04/21/23 Carmelo Hendrickson Coordinator 12/01/23 documented as of this encounter
--- OUTSIDE RECORDS SUMMARY | 2024-01-02 06:11 | XMS_ITS | Encounter Summary ---
Author Organization [facility] Address [address] [place] [address] Care Team Providers Care Dairy Helper Name Role Phone Carrington Calderon MD Primary Care Provi anders Reason for Referral * Medication Prior Authorization - Authorized Specialty Diagnoses / Procedures Referred By Kit goode Referred To Contact Diagnoses Chronic midline low back pain without sciatica Nimisha Clifton NP [address] [address] Referral ID Status Reason Start Date Expiration Date V isits Requested Visits Authorized [id number] Authorized 08/05/2022 09/04/2023 1 1 Reason for Visit * Reason Comments Pre-op Exam Toe amputation Encounter Details Date Type Department Care Team (Late st Contact Info) Description 09/02/2022 11:15 EDT Office Visit [facility] Adult Primary Care - [address] [address] Nimisha Clifton NP [address] [phone] Osteomyelitis of left foot, unspecified [...] who presents today for preop. Surgery in [facility]. Hospitalized last week for infection tue-tue. Saw [...] shares that she follows with endocrine in [facility], next visit in September. Believes her last [...] polyneuropathy, with long-term current use of insulin ([facility]) ([facility]) ??? Gastroparesis ??? Neuropathic diabetic ulcer of foot ([facility]) ??? Tobacco use ??? Skin infection [...] has a referral for therapy. ??? Diabetes ([facility]) ([facility]) A1c 10.3 on 11/28/2019 - poorly controlled ??? Diabetes mellitus, type 2 ([facility]) ([facility]) pt check blood sugars at home- [...] occasionally ??? Neuropathic diabetic ulcer of foot ([facility]) 09/17/2021 ??? Obesity, unspecified ??? Osteomyelitis ([facility]) ([facility]) of left great toe-s/p amputation ??? [...] 0 ??? blood glucose test strips Brand: ThetaRay Precision Cristo, use as directed if Freestyle [...] daily. 400 Each 2 ??? lancets Brand: Depositphotos, use as directed if Freestyle Vignesh roy [...] Description 02/21/2024 9:45 EDT Office Visit [facility] Adult Primary Care - [address] [phone] Carrington Calderon MD [address] [phone] 02/27/2024 8:30 EDT Telemedicine [facility] Sleep Program - [address] [phone] Dwight Colbert [address] [place] [phone] 02/29/2024 10:30 EDT Appointment [facility] Radiology Nuclear Medicine and PET [address] [phone] 02/29/2024 14:30 EDT Appointment [facility] Radiology Nuclear Medicine and PET [address] [id number] 03/01/2024 8:00 EDT Appointment [facility] Radiology Nuclear Medicine and PET [address] [id number] 03/01/2024 9:30 EDT Appointment [facility] Radiology Nuclear Medicine and PET [address] [phone] documented as of this encounter Visit Diagnoses Diagnosis Osteomyelitis of left foot, unspecified type ([facility])- Primary Type 2 diabetes mellitus with diabetic polyneuropathy, with long-term current use of insulin ([facility]) Chronic midline low back pain without sciatica [...] 06/27/2023 added in this encounter Care Teams Dairy Helper Relationship Specialty Start Date End Date Carrington Calderon MD 1 [facility] Level [address] [place] [phone] PCP - General Internal Medicine - Primary Care 12/09/20 documented as of this encounter
--- OUTSIDE RECORDS SUMMARY | 2024-01-02 06:11 | XMS_ITS | Encounter Summary ---
Author Organization [facility] Address [address] [place] [address] Care Team Providers Care Biomaterials Engineer Name Role Phone Carrington Calderon MD Primary Care Provi anders Abigail Díaz Unavailable Carmelo Hendrickson Unavailable Unavailable Encounter Details Date Type Department Care Team (Late st Contact Info) Description 10/27/2022 Lab Requisition [facility] Pathology & Laboratory Medicine - [facility] [address] [place] [address] Dale Collier MD [address] [place] [address] [address] [place], [place] [id number] Nausea; Vomiting, unspecified Social History Tobacco Use [...] in a care home (including now)? No 01/13/2022 Interpersonal Safety [...] [facility] - [address] [phone] Carrington Calderon MD [address] [phone] 02/27/2024 8:30 EDT Telemedicine [facility] Sleep Program - [address] [phone] Dwight Colbert [address] [place] [phone] 02/29/2024 10:30 EDT Appointment [facility] Radiology Nuclear Medicine and PET [address] [phone] 02/29/2024 14:30 EDT Appointment [facility] Radiology Nuclear Medicine and PET [address] [id number] 03/01/2024 8:00 EDT Appointment [facility] Radiology Nuclear Medicine and PET [address] [phone] 03/01/2024 9:30 EDT Appointment [facility] Radiology Nuclear Medicine and PET [address] [phone] documented as of this encounter Procedures Procedure [...] explore management options, if applicable. 11/02/2022 17:09 [facility] Final Diagnosis A. DUODENUM, BIOPSY: - Enteric mucosa with no significant diagnostic abnormality. B. STOMACH, ANTRUM, BIOPSY: - Antral-type mucosa with chemical (reactive) gastropathy. C. GASTROESOPHAGEAL JUNCTION, BIOPSY: - Active esophagitis with ulcer. - GMS stain is negative for fungal hyphae within squamous epithelium. - Negative for viral cytopathic effect. - No pill fragments identified. - See comment. 11/02/2022 17:09 [facility] Diagnosis Comment Travel Professional slides of this case were reviewed at the gastrointestinal/ skyla intradepartmental consultation conference. (, KT, RW) 11/02/2022 17:09 [facility] Attestation By the signature below, the attending physician certifies that they have 1) personally conducted a gross and/or microscopic examination of the described specimen(s), and/or personally interpreted the results of laboratory testing of the described specimen(s), and 2) personally rendered or confirmed the above diagnosis. 11/02/2022 17:09 [facility] at 1709 Clinical History Nausea and vomiting, history of gastroparesis; duodenitis, esophagitis 11/02/2022 17:09 [facility] Gross Description A. Received [...] EUNICE GEE(ASCP) 10/27/2022 18:08 11/02/2022 17:09 EDT [facility] Performing Lab [facility] 11/02/2022 17:09 EDT [facility] Scanned Images 11/02/2022 17:09 EDT [facility] Tissue ENTIRE ESOPHAGUS / Unknown 10/27/2022 11:15 EDT 10/27/2022 16:58 EDT Tissue specimen (specimen) STOMACH STRUCTURE / Unknown 10/27/2022 11:15 EDT 10/27/2022 16:58 EDT Tissue specimen (specimen) ESOPHAGEAL STRUCTURE / Unknown 10/27/2022 11:15 EDT 10/27/2022 16:58 EDT Dale Collier MD PATHOLOGY ORDERA DONALDO [facility] [address] [place] [address] documented in this encounter Visit Diagnoses Diagnosis Nausea Nausea alone Vomiting, unspecified documented in this encounter Care Teams Biomaterials Engineer Relationship Specialty Start Date End Date Carrington Calderon MD 1 [facility] Level 1 [place] [address] PCP - General Internal Medicine - Primary Care 12/09/20 Abigail Díaz Athlete Marketing Agent 04/21/23 Carmelo Hendrickson Coordinator 12/01/23 documented as of this encounter
--- OUTSIDE RECORDS SUMMARY | 2024-01-02 06:11 | XMS_ITS | Encounter Summary ---
Author Organization [facility] Address [address] [place] [address] Care Team Providers Care Artificial Marble Worker Name Role Phone Carrington Calderon MD Primary Care Provi anders Reason for Visit * (Routine/Next Available) - Receiving Office to Obtain Authorization Specialty Diagnoses / Procedures Referred By Kit goode Referred To Contact Procedures XR OUTSIDE IMAGES NEURO Imaging, External Referral ID Status Reason Start Date Expiration Date Visits Requested Visits Authorized [id number] Receiving Office to Obtain Authorization 2 1 1 Encounter Details Date Type Department Care Team (Latest Contact Info) Description 03/18/2022 - 03/18/2022 23:59 EDT Hospital Encounter [facility] Secondary Reads [place] Discharge Disposition: Home [...] polyneuropathy, with long-term current use of insulin ([facility]) One Touch Verio Flex meter. 1 Each 12/21/2021 06/27/2023 blood glucose test strips Brand: Great Mobile MeetingsStyle Precision Cristo, use as directed if Freestyle [...] polyneuropathy, with long-term current use of insulin ([facility]) Inject 1 Kit into the skin every 14 days. 6 Kit 3 01/29/2022 05/21/2022 flash glucose sensor (FREESTYLE VIGNESH 2 SENSOR) kit 1 Device by misc (non-drug; combo route) route continuous. 6 Kit 3 03/15/2022 05/21/2022 gabapentin (NEURONTIN) 300 mg capsuleIndications:Di abetic polyneuropathy associated with type 2 diabetes mellitus ([facility]) Take 300mg in the morning and 900mg [...] use of insulin ([facility]) Inject 40 Units into the skin at bedtime for 90 days. 36 mL 4 12/21/2021 11/17/2022 insulin pen needles 31G x 5/16Indications:Type 2 diabetes mellitus with hyperglycemia, with long-term current use of insulin ([facility]) Use 1 pen needle as directed 4 times daily. 400 Each 2 09/02/2020 03/16/2023 lancets Brand: Freestyle, use as directed if Freestyle Vignesh censor isnt working 100 Each 3 10/06/2020 03/16/2023 lancets One Touch Delica or other brand compatible with lancing device and covered by patient's insurance. 100 Each 5 10/01/2020 03/16/2023 lidocaine 5 % (LIDODERM) 5 % patchIndications:Crm Business Analyst gordo midline low back pain without sciatica [...] nicotine (NICODERM CQ) 14 mg/24 hr patchIndications:Toba ocean export account manager use Apply one patch only daily on skin without hair. Apply to a different skin site at the same time each day. 42 Patch 01/29/2022 09/02/2022 nicotine (NICODERM CQ) 7 mg/24 hr patchIndications:Toba ocean export account manager use Apply one patch only daily on [...] 9:45 EDT Office Visit [facility] Adult Primary Care - [address] [phone] Carrington Calderon MD [address] [phone] 02/27/2024 8:30 EDT Telemedicine [facility] Sleep Program - [address] [phone] Dwight Colbert [address] [place] [address] [phone] 02/29/2024 10:30 EDT Appointment [facility] Radiology Nuclear Medicine and PET - [address] [phone] 02/29/2024 14:30 EDT Appointment [facility] Radiology Nuclear Medicine and PET [address] [id number] 03/01/2024 8:00 EDT Appointment [facility] Radiology Nuclear Medicine and PET - [address] [phone] 03/01/2024 9:30 EDT Appointment [facility] Radiology Nuclear Medicine and PET [address] [phone] documented as of this encounter Procedures Procedure [...] on filedocumented in this encounter Care Teams Artificial Marble Worker Relationship Specialty Start Date End Date Carrington Calderon MD 1 [facility] Level 1 [place] [address] PCP - General Internal Medicine - Primary Care 12/09/20 documented as of this encounter
--- OUTSIDE RECORDS SUMMARY | 2024-01-02 06:11 | XMS_ITS | Encounter Summary ---
Author Organization [facility] Address [address] [place] [address] Care Team Providers Care Hot Air Furnace Installer Repairer Name Role Phone Carrington Calderon MD Primary Care Provi anders Encounter Details Date Type Department Care Team (Late st Contact Info) Description 03/14/2023 15:15 EDT Phlebotomy Only [facility] Services - [address] [address] [facility] [place] [facility] Type 2 diabetes mellitus with diabetic polyneuropathy, with long-term current use of insulin ([facility]); Night sweats; Lymphocytosis Social History Tobacco Use [...] Visit [facility] Adult Primary Care - [address] [address] Carrington Calderon MD [address] [phone] 02/27/2024 8:30 EDT Telemedicine [facility] Sleep Program - [address] [phone] Dwight Colbert [address] [place] [id number] 02/29/2024 10:30 EDT Appointment [facility] Radiology Nuclear Medicine and PET [address] [phone] 02/29/2024 14:30 EDT Appointment [facility] Radiology Nuclear Medicine and PET [address] [phone] 03/01/2024 8:00 EDT Appointment [facility] Radiology Nuclear Medicine and PET [address] [id number] 03/01/2024 9:30 EDT Appointment [facility] Radiology Nuclear Medicine and PET [address] [phone] documented as of this encounter Procedures Procedure Name Priority Date/Time Associated Diagnosis Comments PATH REVIEW - HEMATOLOGY Routine 03/14/2023 15:19 EDT Night sweats Lymphocytosis DIFFERENTIAL, AUTOMATED MANUAL Today 03/14/2023 15:19 EDT Type 2 diabetes mellitus with diabetic polyneuropathy, with long-term current use of insulin ([facility]) SLIDE REQUEST Routine 03/14/2023 15:19 EDT Night sweats Lymphocytosis COMPLETE BLOOD COUNT AND DIFFERENTIAL Routine 03/14/2023 15:19 EDT Type 2 diabetes mellitus with diabetic polyneuropathy, with long-term current use of insulin ([facility]) HEMOGLOBIN A1C Routine 03/14/2023 15:19 EDT Type 2 diabetes mellitus with diabetic polyneuropathy, with long-term current use of insulin ([facility]) BASIC METABOLIC PANEL (BMP) Routine 03/14/2023 15:19 EDT Type 2 diabetes mellitus with diabetic polyneuropathy, with long-term current use of insulin ([facility]) documented in this encounter Results * PATH [...] and giant forms noted. 03/16/2023 12:25 EDT [facility] Blood VENOUS BLOOD / Unknown Venipuncture / Unknown 03/14/2023 15:19 EDT 03/16/2023 11:05 EDT Narrative [facility] - 03/16/2023 12:25 EDT -Absolute [...] Carrington Calderon MD HEMATOLOGY & PF4 ORDERABLES [facility] [address] [place] [address] * (ABNORMAL) DIFFERENTIAL, AUTOMATED MANUAL (03/14/2023 15:19 EDT) % Neutrophils 48.7 % 03/14/2023 17:23 [facility] % Lymphocytes 44.3 % 03/14/2023 17:23 [facility] % Monocytes 4.4 % 03/14/2023 17:23 [facility] % Eosinophils 1.7 % 03/14/2023 17:23 [facility] % Basophils 0.9 % 03/14/2023 17:23 [facility] Absolute Neutrophils 8.80 2.20 - 8.85 K/cmm 03/14/2023 17:23 [facility] Absolute Lymphocytes 8.01(H) 1.09 - 3.30 K/cmm 03/14/2023 17:23 [facility] Absolute Monocytes 0.80 0.10 - 0.80 K/cmm 03/14/2023 17:23 [facility] Absolute Eosinophils 0.31 0.03 - 0.61 K/cmm 03/14/2023 17:23 [facility] ABS Basophils 0.16(H) 0.01 - 0.11 K/cmm 03/14/2023 17:23 [facility] Smudge Cells 03/14/2023 17:23 [facility] Comment:present Type of Differential: Manual 03/14/2023 17:23 [facility] Blood VENOUS BLOOD / Unknown Venipuncture / Unknown 03/14/2023 15:19 EDT 03/14/2023 15:19 EDT Carrington Calderon MD HEMATOLOGY & PF4 ORDERABLES Performing Organization Address City/[facility]/ZIP Co de Phone Number [facility] [address] [place] [address] * (ABNORMAL) COMPLETE BLOOD COUNT AND DIFFERENTIAL (03/14/2023 15:19 EDT) WBC 18.08(H) 4.00 - 12.40 K/cmm 03/14/2023 16:23 EDT [facility] RBC 4.40 3.86 - 5.04 M/cmm 03/14/2023 16:23 EDT [facility] Hemoglobin 14.0 11.6 - 15.2 g/dL 03/14/2023 16:23 T [facility] HCT 40.6 34.9 - 44.4 % 03/14/2023 16:23 [facility] MCV 92 81 - 98 fL 03/14/2023 16:23 T [facility] MCH 31.8 26.7 - 33.3 pg 03/14/2023 16:23 [facility] MCHC 34.5 32.1 - 35.9 g/dL 03/14/2023 16:23 [facility] RDW-CV 12.6 <14.7 % 03/14/2023 16:23 [facility] RDW-SD 42.6 <50.4 fl 03/14/2023 16:23 [facility] PLT 412(H) 141 - 377 K/cmm 03/14/2023 16:23 [facility] MPV 9.3(L) 9.5 - 12.7 fL 03/14/2023 16:23 [facility] Blood VENOUS BLOOD / Unknown Venipuncture / Unknown 03/14/2023 15:19 EDT 03/14/2023 15:19 EDT Carrington Calderon MD PACKAGES & DNA PROBE ORDERABLES [facility] [address] [place] [address] * (ABNORMAL) HEMOGLOBIN A1C (03/14/2023 15:19 EDT) Hemoglobin A1c 8.3(H) <5.7 % 03/14/2023 22:02 EDT [facility] Comment: Glycemic Status References: Normal: ??<5.7% Pre-Diabetes: ??5.7% - 6.4% Diagnostic of Diabetes: ??> or = 6.5% (if confirmed) Est Avg Glucose 192 mg/dL 22:02 EDT [facility] Comment:The eAG represents t he A1c result expressed as average glucose in mg/dL. Blood VENOUS BLOOD / Unknown Venipuncture / Unknown 03/14/2023 15:19 EDT 03/14/2023 15:19 EDT Carrington Calderon MD CHEMISTRY & BLOOD GAS ORDERABLES [facility] [address] [place] [address] * (ABNORMAL) BASIC METABOLIC PANEL (BMP) (03/14/2023 15:19 EDT) Pathologist [facility] Sodium 142 136 - 145 mmol/L 03/14/2023 16:50 EDT [facility] Potassium 4.2 3.5 - 5.0 mmol/L 03/14/2023 16:50 T [facility] Chloride 103 96 - 110 mmol/L 03/14/2023 16:50 T [facility] CO2 Total 25 22 - 32 mmol/L 03/14/2023 16:50 EDT [facility] Anion Gap 14 5 - 14 mmol/L 03/14/2023 16:50 EDT [facility] Glucose 45(LL) 70 - 99 mg/dl 03/14/2023 16:50 EDT [facility] Calcium 9.9 8.5 - 10.5 mg/dL 03/14/2023 16:50 EDT [facility] BUN 11 10 - 26 mg/dL 03/14/2023 16:50 EDT [facility] Creatinine 0.99 0.52 - 1.04 mg/dL 03/14/2023 16:50 EDT [facility] eGFR 75 >60 mL/min/1.73 m2 03/14/2023 16:50 EDT [facility] Blood VENOUS BLOOD / Unknown Venipuncture / Unknown 03/14/2023 15:19 EDT 03/14/2023 15:19 EDT Carrington Calderon MD CHEMISTRY & BLOOD GAS ORDERABLES [facility] [address] [place] [address] documented in this encounter Visit Diagnoses Diagnosis Type 2 diabetes mellitus with diabetic polyneuropathy, with long-term current use of insulin ([facility]) Night sweats Generalized hyperhidrosis Lymphocytosis Lymphocytosis (symptomatic) documented in this encounter Care Teams Hot Air Furnace Installer Repairer Relationship Specialty Start Date End Date Carrington Calderon MD 1 [employer] Level [address] [place] [phone] PCP - General Internal Medicine - Primary Care 12/09/20 documented as of this encounter
--- OUTSIDE RECORDS SUMMARY | 2024-01-02 06:11 | XMS_ITS | Encounter Summary ---
Author Organization [facility] Address [address] [place] [address] Care Team Providers Care Production Machine Shop Supervisor Name Role Phone Carrington Calderon MD Primary Care Provi anders Reason for Visit * Reason Comments Emesis Reports multiple day s of vomiting. Hx gastroenteritis with similar presentations. Endorses dizziness. Lost consciousness in triage. VSS. Reports pain everywhere. Encounter Details Date Type Department Care Team (Late st Contact Info) Description 12/13/2022 17:42 EDT - 12/13/2022 21:40 EDT Emergency [facility] Emergency Department - [address] [phone] Brijesh Esposito MD 111 [facility], Level [address] [place] [phone] Non-intractable vomiting with nausea (Primary [...] slept in a custodial (including now)? No 11/17/2022 Interpersonal Safety Answer [...] 08/20/2020 lidocaine 5 % (LIDODERM) 5 % patchIndications:Team Psychologist gordo midline low back pain without sciatica Place 1 Patch onto the skin daily. Patch(es) may remain in place for up to 12 hours in any 24-hour period. 30 Patch 2 09/02/2022 blood glucose meterIndications:Type 2 diabetes mellitus with diabetic polyneuropathy, with long-term current use of insulin ([facility]) One Touch Verio Flex meter. 1 Each [...] polyneuropathy associated with type 2 diabetes mellitus ([facility]) Take 1 Capsule by mouth every morning AND 3 Capsules at bedtime. 360 Capsule 4 11/17/2022 06/27/2023 insulin glargine (LANTUS SOLOSTAR/SEMGLEE) 100 unit/mL (3 mL) injection penIndications:Type 2 diabetes mellitus with diabetic polyneuropathy, with long-term current use of insulin ([facility]) Inject 40 Units into the skin at bedtime. 36 mL 4 11/17/2022 06/27/2023 insulin lispro (HUMALOG KWIKPEN INSULIN) 100 unit/mL injectable penIndications:Type 2 diabetes mellitus with diabetic polyneuropathy, with long-term current use of insulin ([facility]) Inject 8-14 Units into the skin 3 times daily with meals. 15 mL 3 11/18/2022 04/04/2023 insulin pen needles 31G x 5/16Indications:Type 2 diabetes mellitus with hyperglycemia, with long-term current use of insulin ([facility]) Use 1 pen needle as directed 4 [...] polyneuropathy, with long-term current use of insulin ([facility]) Take 1 Tablet by mouth daily. 90 [...] Means Destination Comment s Home or Self Residential documented in this encounter ED Notes * [...] User Index [DP] Fran Bush MD [JV] Brjiesh Esposito MD EKG shows sinus rhythm at [facility] [address] [phone] Carrington Calderon MD 1 [facility] [address] [place] [phone] 02/27/2024 8:30 EDT Telemedicine [facility] Sleep Program - [address] [address] Dwight Colbert [address] [place] [address] 02/29/2024 10:30 EDT Appointment [facility] Radiology Nuclear Medicine and PET - [address] [address] 02/29/2024 14:30 EDT [facility]ointment [facility] Radiology Nuclear Medicine and PET - [address] [address] 03/01/2024 8:00 EDT Appointment [facility] Radiology Nuclear Medicine and PET [address] [phone] 03/01/2024 9:30 EDT Appointment [facility] Radiology Nuclear Medicine and PET [address] [address] documented as of this encounter Procedures Procedure [...] 6:15 EDT) 12/20/2022 6:15 EDT Scan 2 Program Control Analyst PROCEDURE/MINOR BRAULIO GICAL ORDERABLES * ECG REPORT - SCANNED (12/20/2022 6:15 EDT) 12/20/2022 6:15 EDT Scan 2 Program Control Analyst PROCEDURE/MINOR BRAULIO GICAL ORDERABLES * POCT TEST, CLINITEK (12/13/2022 20:26 EDT) UPT Result Negative Negative 12/13/2022 20:32 EDT [facility] HN LAB COMMENT (CLINITEK, UPT) Test performed at Emergency Department 12/13/2022 20:32 EDT [facility] Comment:False negative resul ts may occur in women who are beyond 5-8 weeks gestation. Diagnosis of should be based on a correlation of test results with typical clinical signs and symptoms. Urine URINE SPECIMEN COLLECTION, CLEAN CATCH / Unknown 12/13/2022 20:26 EDT 12/13/2022 20:32 EDT Fran Bush MD POINT OF CARE TEST O RDERABLES [facility] [address] [place] [address] * (ABNORMAL) POCT URINE DIPSTICK, CLINITEK (12/13/2022 20:24 EDT) Color, UA Yellow Yellow 12/13/2022 20:26 [facility] Clarity, UA Clear Clear 12/13/2022 20:26 [facility] Glucose, UA Negative Negative mg/dL 12/13/2022 20:26 [facility] Bilirubin, UA Negative Negative 12/13/2022 20:26 [facility] Ketones, UA 3+(AA) Negative 12/13/2022 20:26 [facility] Specific [place], Urine 1.020 1.001 - 1.035 12/13/2022 20:26 [facility] Blood, UA 3+(A) Negative 12/13/2022 20:26 [facility] pH, UA 7.0 4.6 - 8.0 12/13/2022 20:26 [facility] Protein, UA 1+(A) Negative 12/13/2022 20:26 [facility] Urobilinogen, UA 0.2 0.2 - 1.0 mg/dL 12/13/2022 20:26 [facility] Nitrite, UA Negative Negative 12/13/2022 20:26 [facility] Leuk Esterase Trace(A) Negative 12/13/2022 20:26 [facility] HN LAB COMMENT (CLINITEK, UR) Test performed at Emergency Department 12/13/2022 20:26 [facility] Urine URINE SPECIMEN COLLECTION, CLEAN CATCH / Unknown 12/13/2022 20:24 EDT 12/13/2022 20:26 EDT Fran Bush MD POINT OF CARE TEST O RDERABLES [facility] [address] [place] [address] * POCT CSN BARCODE URINE DIPSTICK (12/13/2022 20:20 EDT) Urine URINE SPECIMEN COLLECTION, CLEAN CATCH / Unknown Urine Collect / Unknown 12/13/2022 20:20 EDT 12/13/2022 20:20 EDT Fran Bush MD LAB INFO SERVICE AND SUPPORT & PHONE RESULT Performing Organization Address [facility] Co de Phone Number [facility] [address] [place] [address] * POCT CSN BARCODE URINE PREG TEST (12/13/2022 20:20 EDT) Urine URINE SPECIMEN COLLECTION, CLEAN CATCH / Unknown Urine Collect / Unknown 12/13/2022 20:20 EDT 12/13/2022 20:20 EDT Fran Bush MD LAB INFO SERVICE AND SUPPORT & PHONE RESULT Performing Organization Address [facility] Co de Phone Number [facility] [address] [place] [address] * EKG 12-LEAD (12/13/2022 18:09 EDT) 12/13/2022 18:0 9 EDT Narrative [facility] EKG - 12/17/2022 9:43 EDT ?[facility] Emergency ? Test Date: ?2022-12-13 Pat Name: ? CRISTY LUO ?Department: ?? ED ? Room: ? AC17 Gender: ? Female ? Logger: ?? [id number] : ?1985 ? Requested By: CATE Zhao Number: [id number] ? Sammie MARTÍNEZ: ?? CINDY SNYDER MD ? Measurements Intervals ?[place] ? Rate: ? 85 ? P: ?57 WA: ? 144 ?QRS: ?5 QRSD: ? 97 [...] Cindy Snyder Jr., MD - 12/17/2022 [facility] Emergency Test Date: 2022-12-13 Pat Name: CRISTY LUO Department: ED Room: [facility] Gender: Female Logger: [id number] : 1985 Requested By: CATE COLEY Order Number: [id number] Reading MD: CINDY SNYDER MD Measurements Intervals [place] Rate: 85 P: 57 WA: 144 QRS: 5 QRSD: 97 T: -1 QT: 363 QTc: 432 Interpretive Statements SINUS RHYTHM WITH SINUS ARRHYTHMIA Compared to ECG 05/20/2022 14:39:55 Sinus tachycardia no longer present T-wave abnormality no longer present I reviewed the tracing and have either agreed or edited the findings inthis report. Electronically Signed On 12-17-2022 9:43:44 EDT by CINDY SANDOVAL. Brijesh Esposito MD CARDIAC ECG ORDERABL ES [facility] EKG * (ABNORMAL) COMPLETE BLOOD COUNT AND DIFFERENTIAL (12/13/2022 18:04 EDT) WBC 17.27(H) 4.00 - 12.40 K/cmm 12/13/2022 18:17 [facility] RBC 4.72 3.86 - 5.04 M/cmm 12/13/2022 18:17 [facility] Hemoglobin 14.9 11.6 - 15.2 g/dL 12/13/2022 18:17 [facility] HCT 41.3 34.9 - 44.4 % 12/13/2022 18:17 [facility] MCV 88 81 - 98 fL 12/13/2022 18:17 [facility] MCH 31.6 26.7 - 33.3 pg 12/13/2022 18:17 [facility] MCHC 36.1(H) 32.1 - 35.9 g/dL 12/13/2022 18:17 [facility] RDW-CV 13.0 <14.7 % 12/13/2022 18:17 [facility] RDW-SD 41.4 <50.4 fl 12/13/2022 18:17 [facility] PLT 434(H) 141 - 377 K/cmm 12/13/2022 18:17 [facility] MPV 9.3(L) 9.5 - 12.7 fL 12/13/2022 18:17 [facility] % Neutrophils 65.9 % 12/13/2022 18:17 [facility] % Lymphocytes 25.1 % 12/13/2022 18:17 [facility] % Monocytes 8.2 % 12/13/2022 18:17 [facility] % Eosinophils 0.3 % 12/13/2022 18:17 [facility] % Basophils 0.3 % 12/13/2022 18:17 [facility] % Immature Grans 0.2 % 12/14/19 18:17 [facility] Absolute Neutrophils 11.39(H) 2.20 - 8.85 K/cmm 12/13/2022 18:17 [facility] Absolute Lymphocytes 4.33(H) 1.09 - 3.30 K/cmm 12/13/2022 18:17 [facility] Absolute Monocytes 1.41(H) 0.10 - 0.80 K/cmm 12/13/2022 18:17 [facility] Absolute Eosinophils 0.05 0.03 - 0.61 K/cmm 12/13/2022 18:17 [facility] ABS Basophils 0.05 0.01 - 0.11 K/cmm 12/13/2022 18:17 [facility] Absolute Immature Grans 0.04 0.00 - 0.06 K/cmm 12/13/2022 18:17 [facility] Type of Differential: Auto 12/13/2022 18:17 [facility] Blood VENOUS BLOOD / Unknown Venipuncture / Unknown 12/13/2022 18:04 EDT 12/13/2022 18:08 EDT Fran Bush MD PACKAGES & DNA PROBE ORDERABLES [facility] [address] [place] [address] * (ABNORMAL) COMPREHENSIVE METABOLIC PANEL (CMP) (12/13/2022 18:04 ED) Sodium 138 136 - 145 mmol/L 12/13/2022 18:27 [facility] Potassium 3.1(L) 3.5 - 5.0 mmol/L 12/13/2022 18:27 [facility] Chloride 94(L) 96 - 110 mmol/L 12/13/2022 18:27 [facility] CO2 Total 28 22 - 32 mmol/L 12/13/2022 18:27 [facility] Glucose 220(H) 70 - 99 mg/dl 12/13/2022 18:27 [facility] BUN 17 10 - 26 mg/dL 12/13/2022 18:27 [facility] Creatinine 0.43(L) 0.52 - 1.04 mg/dL 12/13/2022 18:27 [facility] eGFR 128 >60 mL/min/1.7 3m2 12/13/2022 18:27 [facility] Total Protein 7.4 6.3 - 8.2 g/dL 12/13/2022 18:27 [facility] Albumin 4.3 3.4 - 4.9 g/dL 12/13/2022 18:27 [facility] Alkaline Phosphatase 92 38 - 126 U/L 12/13/2022 18:27 [facility] AST 27 15 - 46 U/L 12/13/2022 18:27 [facility] ALT 31 <35 U/L 12/13/2022 18:27 [facility] Bilirubin, Total 0.6 <1.4 mg/dL 12/14/19 18:27 [facility] Calcium 9.8 8.5 - 10.5 mg/dL 12/13/2022 18:27 [facility] Albumin/Globulin Ratio 1.4 1.0 - 2.5 g/dL 12/13/2022 18:27 [facility] Anion Gap 16(H) 5 - 14 mmol/L 12/13/2022 18:27 EDT [facility] Blood VENOUS BLOOD / Unknown Venipuncture / Unknown 12/13/2022 18:04 EDT 12/13/2022 18:08 EDT Fran Bush MD CHEMISTRY & BLOOD GA S ORDERABLES Performing Organization Address City/[facility]/ZIP Co de Phone Number [facility] [address] [place] [address] * (ABNORMAL) POCT GLUCOSE, INTERFACED (12/13/2022 18:01 EDT) Glucose, POC 223(H) 70 - 100 mg/dL 12/13/2022 18:03 EDT [facility] HN LAB POC COMMENT (GLUCOSE) Test Performed by Nursing Services 12/13/2022 18:03 EDT [facility] Blood CAPILLARY BLOOD / Unknown 12/13/2022 18:01 EDT 12/13/2022 18:03 EDT Provider Unknown POINT OF CARE TEST O RDERABLES Performing Organization Address City/[facility]/ZIP Co de Phone Number [facility] [address] [place] [address] documented in this encounter Visit Diagnoses Diagnosis [...] 1 dose, On Tue12/13/22 at 2030, STAT 2047 (Given - Provid er: Margarette Arshad RN) [...] 12/13/2022 documented in this encounter Care Teams Production Machine Shop Supervisor Relationship Specialty Start Date End Date Carrington Calderon MD 1 [facility] Level [address] [place] [phone] PCP - General Internal Medicine - Primary Care 12/09/20 documented as of this encounter
--- OUTSIDE RECORDS SUMMARY | 2024-01-02 06:11 | XMS_ITS | Encounter Summary ---
Author Organization [facility] Address [address] [place] [address] Care Team Providers Care Playground Official Name Role Phone Carrington Calderon MD Primary Care Provi anders Abigail Díaz Unavailable Carmelo Hendrickson Unavailable Unavailable Encounter Details Date Type Department Care Team (Late st Contact Info) Description 06/01/2022 Lab Requisition [facility] Pathology & Laboratory Medicine - [facility] [address] [place] [address] Ester Gabriel 175 [facility] LOOP [facility] [address] [place] [address] Encounter for other general examination [...] 9:45 EDT Office Visit [facility] Adult Primary Care - [address] [phone] Carrington Calderon MD [address] [phone] 02/27/2024 8:30 EDT Telemedicine [facility] Sleep Program - [address] 767751 Dwight Colbert [address] [place] [address] [phone] 02/29/2024 10:30 EDT Appointment [facility] Radiology Nuclear Medicine and [address] [phone] 02/29/2024 14:30 EDT Appointment [facility] Radiology Nuclear Medicine and [address] [phone] 03/01/2024 8:00 EDT Appointment [facility] Radiology Nuclear Medicine and PET [address] [phone] 03/01/2024 9:30 EDT Appointment [facility] Radiology Nuclear Medicine and [address] [phone] documented as of this encounter Procedures Procedure [...] explore management options, if applicable. 06/15/2022 11:18 [facility] Final Diagnosis A. 3RD TOE, LEFT FOOT, ? DISTAL? , AMPUTATION: - Skin with ulceration and gangrenous necrosis. - Bone with remodeling changes and patchy chronic inflammation. See comment. 06/15/2022 11:18 [facility] Diagnosis Comment Overall, the findings are nonspecific but could be compatible with chronic osteomyelitis in the appropriate clinical setting. The disarticulation margin is grossly unremarkable. Histologic features diagnostic of acute osteomyelitis are not seen in the novelties sales representative sections submitted. 06/15/2022 11:18 [facility] Attestation There was significant resident/fellow involvement in the diagnostic evaluation of this case. By the signature below, the attending physician certifies that they have personally conducted a gross and/or microscopic examination of the described specimens and rendered or confirmed the above diagnosis. 06/15/2022 11:18 [facility] at 1118 Clinical History Osteomyelitis 06/15/2022 11:18 [facility] Gross Description A. [...] viable. The proximal margin is inked blue. District Extension Service Agent sections are submitted following acid decalcification as follows: BLOCK SHIELDS A1- bone underlying eschar A2- proximal soft tissue margin Carrington Bravo MD 06/01/2022 15:00 06/15/2022 11:18 EST [facility] Resident/Cash w: Carrington Bravo MD 06/15/2022 11:18 EST [facility] Performing Lab [facility] 11:18 EST [facility] Scanned Images 06/15/2022 11:18 EST [facility] Tissue TRAUMATIC AMPUTATION OF UPPER LIMB / Unknown 05/28/2022 7:50 EST 06/01/2022 8:27 EST Ester S Harvey PATHOLOGY ORDERABLES [facility] [address] [place] [address] documented in this encounter Visit Diagnoses Diagnosis Encounter for other general examination documented in this encounter Care Teams Playground Official Relationship Specialty Start Date End Date Carrington Calderon MD 1 [facility] 1 [place] [address] PCP - General Internal Medicine - Primary Care 12/09/20 Abigail Díaz Client Services Assistant 04/21/23 Carmelo Hendrickson Coordinator 12/01/23 documented as of this encounter
--- OUTSIDE RECORDS SUMMARY | 2024-01-02 06:11 | XMS_ITS | Encounter Summary ---
Author Organization [facility] Address [address] [place] [address] Care Team Providers Care Medical Program Specialist Name Role Phone Carrington Calderon MD Primary Care Provi anders Bre Abigail Unavailable [phone] Carmelo Hendrickson Unavailable Unavailable Reason for Visit * Reason Onset Date Comments Coordination Of Care 02/17/2023 Encounter Details Date Type Department Care Team (Late st Contact Info) Description 02/17/2023 Telephone [facility] Adult Primary Care - [address] [address] Carrington Calderon MD 1 [facility] Level 1 [place] [address] Coordination Of Care Social History [...] [facility] - [address] 026011 Carrington Calderon MD [address] [phone] 02/27/2024 8:30 EDT Telemedicine [facility] Sleep Program - [address] 532171 Dwight Colbert [address] [place] [address] [phone] 02/29/2024 10:30 EDT Appointment [facility] Radiology Nuclear Medicine and PET [address] [id number] 02/29/2024 14:30 EDT Appointment [facility] Radiology Nuclear Medicine and PET [address] [phone] 03/01/2024 8:00 EDT Appointment [facility] Radiology Nuclear Medicine and [address] [phone] 03/01/2024 9:30 EDT Appointment [facility] Radiology Nuclear Medicine and PET [address] [phone] documented as of this encounter Results * (ABNORMAL) COMPLETE BLOOD COUNT AND DIFFERENTIAL (03/14/2023 15:19 EDT) WBC 18.08(H) 4.00 - 12.40 K/cmm 03/14/2023 16:23 [facility] RBC 4.40 3.86 - 5.04 M/cmm 03/14/2023 16:23 [facility] Hemoglobin 14.0 11.6 - 15.2 g/dL 03/14/2023 16:23 [facility] HCT 40.6 34.9 - 44.4 % 03/14/2023 16:23 [facility] MCV 92 81 - 98 fL 03/14/2023 16:23 [facility] MCH 31.8 26.7 - 33.3 pg 03/14/2023 16:23 [facility] MCHC 34.5 32.1 - 35.9 g/dL 03/14/2023 16:23 [facility] RDW-CV 12.6 <14.7 % 03/14/2023 16:23 [facility] RDW-SD 42.6 <50.4 fl 03/14/2023 16:23 [facility] PLT 412(H) 141 - 377 K/cmm 03/14/2023 16:23 [facility] MPV 9.3(L) 9.5 - 12.7 fL 03/14/2023 16:23 [facility] Blood VENOUS BLOOD / Unknown Venipuncture / Unknown 03/14/2023 15:19 EDT 03/14/2023 15:19 EDT Carrington Calderon MD PACKAGES & DNA PROBE ORDERABLES [facility] [address] [place] [address] * (ABNORMAL) HEMOGLOBIN A1C (03/14/2023 15:19 EDT) Hemoglobin A1c 8.3(H) <5.7 % 03/14/2023 22:02 [facility] Comment: Glycemic Status References: Normal: ??<5.7% Pre-Diabetes: ??5.7% - 6.4% Diagnostic of Diabetes: ??> or = 6.5% (if confirmed) Est Avg Glucose 192 mg/dL 22:02 [facility] Comment:The eAG represents t he A1c result expressed as average glucose in mg/dL. Blood VENOUS BLOOD / Unknown Venipuncture / Unknown 03/14/2023 15:19 EDT 03/14/2023 15:19 EDT Carrington Calderon MD CHEMISTRY & BLOOD GAS ORDERABLES [facility] [address] [place] [address] * (ABNORMAL) BASIC METABOLIC PANEL (BMP) (03/14/2023 15:19 EDT) Sodium 142 136 - 145 mmol/L 03/14/2023 16:50 [facility] Potassium 4.2 3.5 - 5.0 mmol/L 03/14/2023 16:50 [facility] Chloride 103 96 - 110 mmol/L 03/14/2023 16:50 [facility] CO2 Total 25 22 - 32 mmol/L 03/14/2023 16:50 [facility] Anion Gap 14 5 - 14 mmol/L 03/14/2023 16:50 [facility] Glucose 45(LL) 70 - 99 mg/dl 03/14/2023 16:50 [facility] Calcium 9.9 8.5 - 10.5 mg/dL 03/14/2023 16:50 [facility] BUN 11 10 - 26 mg/dL 03/14/2023 16:50 [facility] Creatinine 0.99 0.52 - 1.04 mg/dL 03/14/2023 16:50 [facility] eGFR 75 >60 mL/min/1.73 m2 03/14/2023 16:50 EDT [facility] Blood VENOUS BLOOD / Unknown Venipuncture / Unknown 03/14/2023 15:19 EDT 03/14/2023 15:19 EDT Carrington Calderon MD CHEMISTRY & BLOOD GAS ORDERABLES [facility] [address] [place] [address] documented in this encounter Visit Diagnoses Diagnosis Type 2 diabetes mellitus with diabetic polyneuropathy, with long-term current use of insulin ([facility])- Primary documented in this encounter Care Teams Medical Program Specialist Relationship Specialty Start Date End Date Carrington Calderon MD [address] [facility] 1 [place] [address] PCP - General Internal Medicine - Primary Care 12/09/20 Abigail Díaz Software Designer 04/21/23 Carmelo Hendrickson Coordinator 12/01/23 documented as of this encounter
--- OUTSIDE RECORDS SUMMARY | 2024-01-02 06:11 | XMS_ITS | Encounter Summary ---
Author Organization [facility] Address [address] [place] [address] Care Team Providers Care Electric Motor Winder Name Role Phone Carrington Calderon MD Primary Care Provi anders Abigail Díaz Unavailable Carmelo Hendrickson Unavailable Unavailable Reason for Visit * Reason Comments Medications Refill Encounter Details Date Type Department Care Team (Late st Contact Info) Description 01/04/2023 Refill [facility] Adult Primary Care - [address] [address] Carrington Calderon MD [address] [phone] Medications Refill Social History Tobacco Use Types [...] HOURS NEEDED FOR PAIN. DAILY MAX 200MG [facility] [address] [place] [address] Confirmed Pharmacy? Yes Patient out of medication? Unknown Last Refill Date: 11/17/22 Refills left? (explain exceptions requiring early refill) No Recent Visits Date Type Provider Dept 11/17/22 Office Visit Carrington Calderon MD [facility] Adult Prim Care 09/02/22 Office Visit Nimisha Clifton NP [facility] Adult Prim Care 05/20/22 Office Visit Rachel Stein PA-C [facility] Adult Prim Care Showing recent visits within past 540 days with a meds authorizing provider and meeting all other requirements Future Appointments Date Type Provider Dept 03/16/23 Appointment Carrington Calderon MD [facility] Adult Prim Care Showing future appointments within next 150 days with a meds authorizing provider and meeting all other requirements Future appointment: Already Scheduled JOSS WASHINGTON RN 01/05/2023 8:04 documented in this encounter Plan of Treatment Upcoming Encounters Date Type Department Care Team (Late st Contact Info) Description 02/21/2024 9:45 EDT Office Visit [facility] Adult Primary Care - [address] [phone] Carrington Calderon MD [address] [phone] 02/27/2024 8:30 EDT Telemedicine [facility] Sleep Program - [address] 780201 Dwight Colbert [address] [place] [phone] 02/29/2024 10:30 EDT Appointment [facility] Radiology Nuclear Medicine and PET [address] [phone] 02/29/2024 14:30 EDT Appointment [facility] Radiology Nuclear Medicine and PET [address] [phone] 03/01/2024 8:00 EDT Appointment [facility] Radiology Nuclear Medicine and PET [address] [phone] 03/01/2024 9:30 EDT Appointment [facility] Radiology Nuclear Medicine and PET [address] [phone] documented as of this encounter Visit Diagnoses [...] documented as of this encounter Care Teams Electric Motor Winder Relationship Specialty Start Date End Date Carrington Calderon MD [address] [place] [address] [place] [address] PCP - General Internal Medicine - Primary Care 12/09/20 Abigail Díaz Night Monitor 04/21/23 Carmelo Hendrickson Coordinator 12/01/23 documented as of this encounter
--- OUTSIDE RECORDS SUMMARY | 2024-01-02 06:11 | XMS_ITS | Encounter Summary ---
Author Organization [facility] Address [address] [place] [address] Care Team Providers Care Ramp And Cargo Supervisor Name Role Phone Carrington Calderon MD Primary Care Provi anders Abigail Díaz Unavailable Carmelo Hendrickson Unavailable Unavailable Reason for Visit * Reason Onset Date Comments Appointment Related 03/17/2022 Encounter Details Date Type Department Care Team (Late st Contact Info) Description 03/17/2022 Telephone [facility] Endocrinology - [facility] [address] [place] [address] Zulma Cross, SURGICAL SERVICES TECH 62 [facility] [address] [place] [address] Appointment Related Social History Tobacco [...] anytime after 06/16/22 Recall Letter Sent thru [facility] [employer] Also: Left voicemail to schedule 6 month Follow Up appointment with Dr. Eryn Mims Patient is due anytime after 09/14/22 Recall Letter Sent thru [facility] Please schedule both appointments documented in this encounter Plan of Treatment Upcoming Encounters Date Type Department Care Team (Late st Contact Info) Description 02/21/2024 9:45 EDT Office Visit [facility] Adult Primary Care - [address] 415281 Carrington Calderon MD [address] [phone] 02/27/2024 8:30 EDT Telemedicine [facility] Sleep Program - [address] [phone] Dwight Colbert [address] [place] [phone] 02/29/2024 10:30 EDT Appointment [facility] Radiology Nuclear Medicine and PET - [address] [phone] 02/29/2024 14:30 EDT Appointment [facility] Radiology Nuclear Medicine and PET - [address] [address] 03/01/2024 8:00 EDT Appointment [facility] Radiology Nuclear Medicine and PET [address] [address] 03/01/2024 9:30 EDT Appointment [facility] Radiology Nuclear Medicine and PET - [address] [address] documented as of this encounter Visit Diagnoses Not on filedocumented in this encounter Care Teams Ramp And Cargo Supervisor Relationship Specialty Start Date End Date Carrington Calderon MD 1 [facility] 1 [place] [address] PCP - General Internal Medicine - Primary Care 12/09/20 Abigail Díaz Calibrator Barometers 04/21/23 Carmelo Hendrickson Coordinator 12/01/23 documented as of this encounter
--- OUTSIDE RECORDS SUMMARY | 2024-01-02 06:11 | XMS_ITS | Encounter Summary ---
Author Organization [facility] Address [address] [place] [address] Care Team Providers Care Animal Control Supervisor Name Role Phone Carrington Calderon MD Primary Care Provi anders Reason for Visit * Reason Comments Medications Refill Encounter Details Date Type Department Care Team (Late st Contact Info) Description 10/15/2022 Refill [facility] Adult Primary Care [facility] 1 [place], [place] [phone] Carrington Calderon MD 1 [facility] Level 1 [place] [address] Medications Refill Social History Tobacco [...] [facility] Adult Primary Care - [address] 330361 Carrington Calderon MD 1 [facility] 1 [place] [address] 02/27/2024 8:30 EDT Telemedicine [facility] Sleep Program - [address] [phone] Dwight oClbert [address] [place] [address] [phone] 02/29/2024 10:30 EDT Appointment [facility] Radiology Nuclear Medicine and PET - [address] [address] 02/29/2024 14:30 EDT Appointment [facility] Radiology Nuclear Medicine and PET - [address] [address] 03/01/2024 8:00 EDT Appointment [facility] Radiology Nuclear Medicine and PET - [address] [address] 03/01/2024 9:30 EDT Appointment [facility] Radiology Nuclear Medicine and PET - [address] [address] documented as of this encounter Visit Diagnoses [...] documented as of this encounter Care Teams Animal Control Supervisor Relationship Specialty Start Date End Date Carrington Calderon MD 1 [facility] Level 1 [place] [address] PCP - General Internal Medicine - Primary Care 12/09/20 documented as of this encounter
--- OUTSIDE RECORDS SUMMARY | 2024-01-02 06:11 | XMS_ITS | Encounter Summary ---
Author Organization [facility] Address [address] [place] [address] Care Team Providers Care Refrigeration Engineering Teacher Name Role Phone Carrington Calderon MD Primary Care Provi anders Abigail Díaz Unavailable Carmelo Hendrickson Unavailable Unavailable Encounter Details Date Type Department Care Team (Late st Contact Info) Description 09/13/2022 Lab Requisition [facility] Pathology & Laboratory Medicine - [facility] [address] [place] [address] sEter Gabriel 175 [facility] LO[facility] [address] [place] [address] Encounter for other general examination [...] slept in a long-term (including now)? No 01/13/2022 Interpersonal Safety Answer [...] [facility] - [address] [address] Carrington Calderon MD [address] [phone] 02/27/2024 8:30 EDT Telemedicine [facility] Sleep Program - [address] [phone] Dwight Colbert [address] [place] [address] [phone] 02/29/2024 10:30 EDT Appointment [facility] Radiology Nuclear Medicine and [address] [phone] 02/29/2024 14:30 EDT Appointment [facility] Radiology Nuclear Medicine and [address] [phone] 03/01/2024 8:00 EDT Appointment [facility] Radiology Nuclear Medicine and PET [address] [phone] 03/01/2024 9:30 EDT Appointment [facility] Radiology Nuclear Medicine and [address] [phone] documented as of this encounter Procedures Procedure [...] explore management options, if applicable. 09/20/2022 10:01 [facility] Final Diagnosis A. TOE, LEFT 2ND, AMPUTATION: - Acute osteomyelitis. - Disarticulated joint margin negative for acute osteomyelitis. - Skin with ulceration, cellulitis and dermal fibrosis. 09/20/2022 10:01 [facility] Attestation By the signature below, the attending physician certifies that they have 1) personally conducted a gross and/or microscopic examination of the described specimen(s), and/or personally interpreted the results of laboratory testing of the described specimen(s), and 2) personally rendered or confirmed the above diagnosis. 09/20/2022 10:01 [facility] at 1001 Clinical History Osteomyelitis 09/20/2022 10:01 [facility] Gross Description A. Received [...] the resection margin is without gross lesions. Bus Van Driver sections are submitted following acid decalcification as follows: BLOCK SHIELDS A1- perpendicular sections ulceration to include nearest skin and soft tissue margin A2- bone margin EUNICE RILEY(ASCP) 09/13/2022 13:00 09/20/2022 10:01 [facility] Performing Lab [facility] 10:01 [facility] Scanned Images 09/20/2022 10:01 EDT [facility] Tissue TRAUMATIC AMPUTATION OF UPPER LIMB / Unknown 09/10/2022 9:17 EDT 09/13/2022 8:56 EDT Ester Tirado Harvey PATHOLOGY ORDERABLES [facility] [address] [place] [address] documented in this encounter Visit Diagnoses Diagnosis Encounter for other general examination documented in this encounter Care Teams Refrigeration Engineering Teacher Relationship Specialty Start Date End Date Carrington Calderon MD 1 [facility] Level 1 [place] [address] PCP - General Internal Medicine - Primary Care 12/09/20 Abigail Díaz Per Diem Interpreter 04/21/23 Carmelo Hendrickson Coordinator 12/01/23 documented as of this encounter
--- OUTSIDE RECORDS SUMMARY | 2024-01-02 06:11 | XMS_ITS | Encounter Summary ---
Author Organization [facility] Address [address] [place] [address] Care Team Providers Care Prototype Sewer Name Role Phone Carrington Calderon MD Primary Care Provi anders Reason for Visit * Reason Onset Date Comments Results 03/30/2022 Encounter Details Date Type Department Care Team (Late st Contact Info) Description 03/30/[address] [facility] Adult Primary Care [facility] 1 [place], [place] [address] Carrington Calderon MD 1 [facility] Level 1 [place] [address] Results Social History Tobacco Use Types [...] that her lumbar spine x-ray done at [facility] shows some mild arthritis throughout the lower [...] [facility] Adult Primary Care - [address] [address] Carrington Calderon MD [address] [place] [phone] 02/27/2024 8:[address] [facility] Sleep Program - [address] [address] ColbertDwight garner [address] [place] [address] 02/29/2024 10:30 EDT Appointment [facility] Radiology Nuclear Medicine and PET [address] [phone] 02/29/2024 14:30 EDT Appointment [facility] Radiology Nuclear Medicine and PET [address] [phone] 03/01/2024 8:00 EDT Appointment [facility] Radiology Nuclear Medicine and PET [address] [phone] 03/01/2024 9:30 EDT Appointment [facility] Radiology Nuclear Medicine and PET [address] [phone] documented as of this encounter Visit Diagnoses Not on filedocumented in this encounter Care Teams Prototype Sewer Relationship Specialty Start Date End Date Carrington Calderon MD [address] [place] [phone] PCP - General Internal Medicine - Primary Care 12/09/20 documented as of this encounter
--- OUTSIDE RECORDS SUMMARY | 2024-01-02 06:11 | XMS_ITS | Encounter Summary ---
Author Organization [facility] Address [address] [place] [address] Care Team Providers Care Hobbing Machine Operator Name Role Phone Carrington Calderon MD Primary Care Provi anders Reason for Visit * Reason Comments Medications Refill Encounter Details Date Type Department Care Team (Late st Contact Info) Description 02/28/[address] [facility] Adult Primary Care [facility] 1 [place], [place] [phone] Kylah Weiner MD 1 [facility] Level 1 [place] [phone] Medications Refill Social History Tobacco [...] [facility] Adult Primary Care - [address] 916061 Carrington Calderon MD 1 [facility] 1 [place] [address] 02/27/2024 8:30 EDT Telemedicine [facility] Sleep Program - [address] 135361 Dwight Colbert [address] [place] [address] [phone] 02/29/2024 10:[address] [facility] Rad[facility] Nuclear Medicine and PET - [address] [phone] 02/29/2024 14:30 EDT Appointment [facility] Radiology Nuclear Medicine and PET - [address] [address] 03/01/2024 8:00 EDT Appointment [facility] Radiology Nuclear Medicine and PET - [address] [address] 03/01/2024 9:30 EDT Appointment [facility] Radiology Nuclear Medicine and PET - [address] [phone] documented as of this encounter Visit Diagnoses Not on filedocumented in this encounter Discontinued Medications Medication Sig Discontinue Reason Start Date End Da te omeprazole (PRILOSEC) 20 mg capsule Take 1 capsule by mouth daily. 01/26/2021 03/02/2022 documented as of this encounter Care Teams Hobbing Machine Operator Relationship Specialty Start Date End Date Carrington Calderon MD 1 [facility] Level 1 [place] [address] PCP - General Internal Medicine - Primary Care 12/09/20 documented as of this encounter
--- OUTSIDE RECORDS SUMMARY | 2024-01-02 06:11 | XMS_ITS | Encounter Summary ---
Author Organization [facility] Address [address] [place] [address] Care Team Providers Care Pest Control Applicator Name Role Phone Carrington Calderon MD Primary Care Provi anders Reason for Visit * Reason Onset Date Comments Prior Auth, Medication 09/04/2022 Encounter Details Date Type Department Care Team (Late st Contact Info) Description 09/04/2022 Telephone [facility] Adult Primary Care [address] 516211 Carrington Calderon MD 1 [facility] Level [address] [place] [phone] Prior Auth, Medication Social History Tobacco [...] slept in a usp (including now)? No 01/13/2022 Interpersonal Safety Answer [...] Q54A Group name: [employer] BIN: [id number] PCN: PA has been completed via ePa Awaiting reply documented in this encounter Plan of Treatment Upcoming Encounters Date Type Department Care Team (Late st Contact Info) Description 02/21/2024 9:45 EDT Office Visit [facility] Adult Primary Care - [address] [phone] Carrington Calderon MD [address] [place] [phone] 02/27/2024 8:30 EDT Telemedicine [facility] Sleep Program - [address] [phone] Dwight Colbert [address] [place], [place] [address] 02/29/2024 10:30 EDT Appointment [facility] Radiology Nuclear Medicine and PET - [address] [phone] 02/29/2024 14:30 EDT Appointment [facility] Radiology Nuclear Medicine and PET - [address] 050221 03/01/2024 8:00 EDT Appointment [facility] Radiology Nuclear Medicine and PET - [address] [phone] 03/01/2024 9:30 EDT Appointment [facility] Radiology Nuclear Medicine and PET - [address] 984991 documented as of this encounter Visit Diagnoses Not on filedocumented in this encounter Care Teams Pest Control Applicator Relationship Specialty Start Date End Date Carrington Calderon MD 1 [facility] Level 1 [place] [address] PCP - General Internal Medicine - Primary Care 12/09/20 documented as of this encounter
--- OUTSIDE RECORDS SUMMARY | 2024-01-02 06:11 | XMS_ITS | Encounter Summary ---
Author Organization [facility] Address [address] [place] [address] Care Team Providers Care Mine Engineering Supervisor Name Role Phone Carrington Calderon MD Primary Care Provi anders Reason for Visit * Reason Onset Date Comments COVID-19 Positive Patient Outreach 02/25/2022 Encounter Details Date Type Department Care Team (Late st Contact Info) Description 02/25/2022 Telephone [facility] Adult Primary Care [address] [phone] Carrington Calderon MD [address] [phone] COVID-19 Positive Patient Outreach Social [...] THOMPSON RN * Telephone Encounter - Jesi uLa RN - 02/26/2022 1444 EDT Left message [...] wash your hands often. Rx pended with [facility] pharmacy loaded. Patient lives in [place] but says that her [id number] will be in [place] this afternoon and will be able to [...] 02/21/2024 9:45 EDT Office Visit [facility] Adult Primary Care - [address] [phone] Carrington Calderon MD [address] [phone] 02/27/2024 8:30 EDT Telemedicine [facility] Sleep Program - [address] 269021 Dwgiht Colbert [address] [place] [address] [phone] 02/29/2024 10:30 EDT Appointment [facility] Radiology Nuclear Medicine and PET - [address] 084171 02/29/2024 14:30 EDT [facility] Radiology Nuclear Medicine and PET - [address] 058571 03/01/2024 8:00 EDT Appointment [facility] Radiology Nuclear Medicine and PET - [address] [phone] 03/01/2024 9:30 EDT Appointment [facility] Radiology Nuclear Medicine and PET - [address] [address] documented as of this encounter Visit Diagnoses Diagnosis COVID-19 virus infection- Primary documented in this encounter Care Teams Mine Engineering Supervisor Relationship Specialty Start Date End Date Carrington Calderon MD 1 [facility] 1 [place] [phone] PCP - General Internal Medicine - Primary Care 12/09/20 documented as of this encounter
--- OUTSIDE RECORDS SUMMARY | 2024-01-02 06:11 | XMS_ITS | Encounter Summary ---
Author Organization [facility] Address [address] [place] [address] Care Team Providers Care Cash Teller Name Role Phone Carrington Calderon MD Primary Care Provi anders Reason for Visit * Reason Comments Med Change Request Encounter Details Date Type Department Care Team (Late st Contact Info) Description 01/06/2023 [facility] Adult Primary Care [facility] 1 [place], [place] [address] Staci Adhikari MD 1 [facility] Level [address] [place] [phone] Med Change Request Social History Tobacco [...] [facility] Adult Primary Care - [address] 584321 Carrington Calderon MD [address] [phone] 02/27/2024 8:30 EDT Telemedicine [facility] Sleep Program - [address] [phone] Dwight Colbert [address] [place] [address] [phone] 02/29/2024 10:30 EDT Appointment [facility] Radiology Nuclear Medicine and PET - [address] 067441 02/29/2024 14:30 EDT Appointment [facility] Radiology Nuclear Medicine and PET - [address] 058711 03/01/2024 8:00 EDT Appointment [facility] Radiology Nuclear Medicine and PET - [address] 729821 03/01/2024 9:30 EDT Appointment [facility] Radiology Nuclear Medicine and PET - [address] 080471 documented as of this encounter Visit Diagnoses Diagnosis Chronic midline low back pain without sciatica- Primary documented in this encounter Care Teams Cash Teller Relationship Specialty Start Date End Date Carrington Calderon MD 1 [facility] Level 1 [place] [phone] PCP - General Internal Medicine - Primary Care 12/09/20 documented as of this encounter
--- OUTSIDE RECORDS SUMMARY | 2024-01-02 06:11 | XMS_ITS | Encounter Summary ---
Author Organization [facility] Address [address] [place] [address] Care Team Providers Care Detective Precinct Name Role Phone Carrington Calderon MD Primary Care Provi andesr Reason for Visit * Reason Comments Medications Refill Encounter Details Date Type Department Care Team (Late st Contact Info) Description 02/26/2022 Refill [facility] Adult Primary Care [facility] 1 [place], [place] 030871 Tonja Alejandro PA-C [address] [place] [address] [place] [phone] Medications Refill Social History Tobacco Use [...] Requested: METOCLOPRAMIDE HCI 10 MG Preferred Pharmacy: [facility] Is patient out of medication? Unknown Last Refill Date: 02.18.21 Last Visit Date with Ordering Provider: 01.29.22 Next Non-Acute Visit Date Scheduled with Care Team: Yes.04.01.22 Nichole Márquez 03/01/2022 9:28 documented in this encounter Plan of Treatment Upcoming Encounters Date Type Department Care Team (Late st Contact Info) Description 02/21/2024 9:45 EDT Office Visit [facility] Adult Primary Care - [address] [phone] Carrington Calderon MD 1 [facility] 1 [place] [phone] 02/27/2024 8:30 EDT Telemedicine [facility] Sleep Program - [address] [phone] Dwigth Colbert [address] [place] [phone] 02/29/2024 10:30 EDT Appointment [facility] Radiology Nuclear Medicine and PET - [address] [phone] 02/29/2024 14:30 EDT Appointment [facility] Radiology Nuclear Medicine and PET [address] [address] 03/01/2024 8:00 EDT Appointment [facility] Radiology Nuclear Medicine and PET [address] [address] 03/01/2024 9:30 EDT Appointment [facility] Radiology Nuclear Medicine and PET [address] [address] documented as of this encounter Visit Diagnoses Not on filedocumented in this encounter Discontinued Medications Medication Sig Discontinue Reason Start Date End Da te metoclopramide HCl (REGLAN) 10 mg tablet Take 1 Tablet by mouth 3 times daily before meals for 90 days. 11/20/2020 03/02/2022 documented as of this encounter Care Teams Detective Precinct Relationship Specialty Start Date End Date Carrington Calderon MD 1 [facility] 1 [place] [address] PCP - General Internal Medicine - Primary Care 12/09/20 documented as of this encounter
--- OUTSIDE RECORDS SUMMARY | 2024-01-02 06:11 | XMS_ITS | Encounter Summary ---
Author Organization [facility] Address [address] [place] [address] Care Team Providers Care Water Pump Assembler Name Role Phone Carrington Calderon MD Primary Care Provi anders Reason for Visit * Reason Comments Medication Management Encounter Details Date Type Department Care Team (Late st Contact Info) Description 12/17/2022 14:45 EDT Telemedicine [facility] Adult Primary Care - [address] [phone] Carrington Calderon MD 1 [facility] Level 1 [place] [phone] Type 2 diabetes mellitus with diabetic polyneuropathy, with long-term current use of insulin ([facility]) (Primary Dx); Anxiety and depression; Gastroparesis; Catamenial [...] Notes * Carrington Calderon MD - 12/17/2022 9691 EDT Primary Care Video Visit Assessment & Plan Diagnoses and all orders for this visit: Type 2 diabetes mellitus with diabetic polyneuropathy, with long-term current use of insulin ([facility]) ([facility]): No change made today. Will inquire regarding [...] Home Patient location state: Visit Location State: [place] The location of the provider: Office Provider location state: Visit Location State: [place] The following people and their roles were present for today's visit: Appointment Provider: Carrington Calderon MD Sopheab Miles documented in this encounter Plan of Treatment Upcoming Encounters Date Type Department Care Team (Late st Contact Info) Description 02/21/2024 9:45 EDT Office Visit [facility] Adult Primary Care - [address] 444761 Carrington Calderon MD [address] [phone] 02/27/2024 8:30 EDT Telemedicine [facility] Sleep Program - [address] [phone] Dwight Colbert [address] [place] [address] [phone] 02/29/2024 10:30 EDT Appointment [facility] Radiology Nuclear Medicine and PET - [address] [phone] 02/29/2024 14:30 EDT [facility]ointment [facility] Radiology Nuclear Medicine and PET - [address] 763101 03/01/2024 8:00 EDT Appointment [facility] Radiology Nuclear Medicine and PET - [address] [phone] 03/01/2024 9:30 EDT Appointment [facility] Radiology Nuclear Medicine and PET [address] [phone] documented as of this encounter Visit Diagnoses Diagnosis Type 2 diabetes mellitus with diabetic polyneuropathy, with long-term current use of insulin ([facility])- Primary Anxiety and depression Dysthymic disorder Gastroparesis Catamenial disorder Unspecified disorder of menstruation and other abnormal bleeding from female genital tract Migraine with aura and without status migrainosus, not intractable Migraine with aura, without mention of intractable migraine without mention of status migrainosus Cyclic vomiting syndrome Persistent vomiting documented in this encounter Discontinued Medications Medication Sig Discontinue Reason Start Date End Da te prochlorperazine (COMPAZINE) 25 mg suppositoryIndications :Gastroparesis Place [...] documented as of this encounter Care Teams Water Pump Assembler Relationship Specialty Start Date End Date Carrington Calderon MD 1 [facility] 1 [place] [address] PCP - General Internal Medicine - Primary Care 12/09/20 documented as of this encounter
--- OUTSIDE RECORDS SUMMARY | 2024-01-02 06:11 | XMS_ITS | Encounter Summary ---
Author Organization [facility] Address [address] [place] [address] Care Team Providers Care Pheresis Specialist Name Role Phone Carrington Calderon MD Primary Care Provi anders Reason for Referral * PT/OT/ST (Routine/Next Available) - Closed Specialty Diagnoses / Procedures Referred By Kit goode Referred To Contact Rehab Therapies Diagnoses Bilateral chronic knee pain Chronic low back pain, unspecified back pain laterality, unspecified whether sciatica present Carrington Calderon MD [address] [phone] Referral ID Status Reason Start Date Expiration Date V isits Requested Visits Authorized [id number] Closed Specialty Services Required 11/17/2022 1 1 Question Answer Reason for Request: bilateral knee and low back pain Practice Site (External Referral Only): [facility] in [place] Reason for Visit * Reason Comments Annual Exam Encounter Details Date Type Department Care Team (Late st Contact Info) Description 11/17/2022 10:30 EDT Office Visit [facility] Adult Primary Care - [address] [address] Carrington Calderon MD [address] [phone] Visit for preventive health examination [...] with long-term current use of insulin ([facility]) Inject 40 Units into the skin at [...] polyneuropathy associated with type 2 diabetes mellitus ([facility]) Take 1 Capsule by mouth every morning AND 3 Capsules at bedtime. 360 Capsule 4 11/17/2022 06/27/2023 SITagliptin phosphate (JANUVIA) 100 mg tabletIndications:Type 2 diabetes mellitus with diabetic polyneuropathy, with long-term current use of insulin ([facility]) Take 1 Tablet by mouth [...] use of insulin ([facility]) ([facility]): Empagliflozin was stopped recently in the setting [...] HEMOGLOBIN A1C - THYROID CASCADE - URINE [id number] RATIO (ACR) Gastroparesis: Refilled omeprazole and ondansetron. - omeprazole (PRILOSEC) 20 mg capsule - ondansetron (ZOFRAN-ODT) 4 mg disintegrating tablet Diabetic polyneuropathy associated with type 2 diabetes mellitus ([facility]) ([facility]): Continue gabapentin. She is comfortable with this [...] minutes today in chart review, care coordination, [id number] time with the patient independent of preventive [...] Description 02/21/2024 9:45 EDT Office Visit [facility] Adult Primary Care - [address] 197271 Carrington Calderon MD [address] [phone] 02/27/2024 8:30 EDT Telemedicine [facility] Sleep Program - [address] 811101 Dwight Colbert [address] [place] [address] [phone] 02/29/2024 10:30 EDT Appointment [facility] Radiology Nuclear Medicine and PET [address] [phone] 02/29/2024 14:30 EDT Appointment [facility] Radiology Nuclear Medicine and PET - [address] [phone] 03/01/2024 8:00 EDT Appointment [facility] Radiology Nuclear Medicine and PET [address] [phone] 03/01/2024 9:30 EDT Appointment [facility] Radiology Nuclear Medicine and PET [address] [phone] Scheduled Referrals Name Type Priority Associated Diagnoses [...] with long-term current use of insulin ([facility]) Gastroparesis Diabetic polyneuropathy associated with type 2 diabetes mellitus ([facility]) Chronic low back pain, unspecified back pain [...] with long-term current use of insulin ([facility]) Inject 40 Units into the skin at [...] 11/17/2022 documented in this encounter Care Teams Pheresis Specialist Relationship Specialty Start Date End Date Carrington Calderon MD 1 [facility] Level 1 [place] [phone] PCP - General Internal Medicine - Primary Care 12/09/20 documented as of this encounter
--- OUTSIDE RECORDS SUMMARY | 2024-01-02 06:11 | XMS_ITS | Encounter Summary ---
Author Organization [facility] Address [address] [place] [address] Care Team Providers Care Third Grade Teacher Name Role Phone Carrington Calderon MD Primary Care Provi anders Reason for Visit * Reason Comments Med Change Request Encounter Details Date Type Department Care Team (Late st Contact Info) Description [facility] 1 [place], [place] [phone] Nimisha Clifton, GUSTAVO 1 [employer] Level 1 [place] [address] Med Change Request Social History [...] slept in a detention (including now)? No 01/13/2022 Interpersonal Safety Answer [...] FLEXPEN) 100 unit/mL (3 mL) injectable pen [[id number]] ?? Order Details Dose: 12 Units Route: [...] [facility] Adult Primary Care - [address] 337861 Carrington Calderon MD [address] [phone] 02/27/2024 8:30 EDT Telemedicine [facility] Sleep Program - [address] [phone] Dwight Colbert [address] [place] [address] [phone] 02/29/2024 10:30 EDT Appointment [facility] Radiology Nuclear Medicine and PET - [address] [phone] 02/29/2024 14:30 EDT Appointment [facility] Radiology Nuclear Medicine and PET - [address] [address] 03/01/2024 8:00 EDT Appointment [facility] Radiology Nuclear Medicine and PET - [address] [address] 03/01/2024 9:30 EDT Appointment [facility] Radiology Nuclear Medicine and PET - [address] [address] documented as of this encounter Visit Diagnoses Diagnosis Type 2 diabetes mellitus with diabetic polyneuropathy, with long-term current use of insulin ([facility])- Primary documented in this encounter Care Teams Third Grade Teacher Relationship Specialty Start Date End Date Carrington Calderon MD 1 [facility] 1 [place] [address] PCP - General Internal Medicine - Primary Care 12/09/20 documented as of this encounter
--- OUTSIDE RECORDS SUMMARY | 2024-01-02 06:11 | XMS_ITS | Encounter Summary ---
Author Organization [facility] Address [address] [place] [address] Care Team Providers Care Tray Room Worker Name Role Phone Carrington Calderon MD Primary Care Provi anders Abigail Díaz Unavailable [phone] Carmelo Hendrickson Unavailable Unavailable Reason for Visit * Reason Onset Date Comments Prior Auth, Medication 11/18/2022 Encounter Details Date Type Department Care Team (Late st Contact Info) Description 11/18/2022 Telephone [facility] Adult Primary Care - [address] [address] Carrington Calderon MD 1 [facility] Level 1 [place] [address] Prior Auth, Medication Social History [...] polyneuropathy, with long-term current use of insulin ([facility]) Inject 8-14 Units into the skin 3 [...] 100 unit/mL (3 mL) injectable pen Mejia: [id number] documented in this encounter Plan of Treatment Upcoming Encounters Date Type Department Care Team (Late st Contact Info) Description 02/21/2024 9:45 EDT Office Visit [facility] Adult Primary Care - [address] 957681 Carrington Calderon MD [address] [phone] 02/27/2024 8:30 EDT Telemedicine [facility] Sleep Program - [address] [phone] Dwight Colbert [address] [place] [address] [phone] 02/29/2024 10:30 EDT Appointment [facility] Radiology Nuclear Medicine and PET [address] [phone] 02/29/2024 14:30 EDT Appointment [facility] Radiology Nuclear Medicine and PET [address] [phone] 03/01/2024 8:00 EDT Appointment [facility] Radiology Nuclear Medicine and PET [address] [phone] 03/01/2024 9:30 EDT Appointment [facility] Radiology Nuclear Medicine and [address] [phone] documented as of this encounter Visit Diagnoses Diagnosis Type 2 diabetes mellitus with diabetic polyneuropathy, with long-term current use of insulin ([facility])- Primary documented in this encounter Discontinued Medications Medication Sig Discontinue Reason Start Date End Da te insulin aspart U-100 (NOVOLOG FLEXPEN) 100 unit/mL (3 mL) injectable penIndications:type 2 diabetes mellitus,as needed with meals. Inject 8-14 Units into the skin 3 times daily with meals. Sliding scale- 8+(2-6) units premeal Insurance does not cover 11/17/2022 11/18/2022 documented as of this encounter Care Teams Tray Room Worker Relationship Specialty Start Date End Date Carrington Calderon MD [address] [place] [phone] PCP - General Internal Medicine - Primary Care 12/09/20 Abigail Díaz Boat Camp Operator 04/21/23 Carmelo Hendrickson Coordinator 12/01/23 documented as of this encounter
--- OUTSIDE RECORDS SUMMARY | 2024-01-02 06:11 | XMS_ITS | Encounter Summary ---
Author Organization [facility] Address [address] [place] [address] Care Team Providers Care Resort Host Name Role Phone Carrington Calderon MD Primary Care Provi anders Abigail Díaz Unavailable Carmelo Hendrickson Unavailable Unavailable Reason for Visit * Reason Onset Date Comments Appointment Related 03/30/2022 Encounter Details Date Type Department Care Team (Late st Contact Info) Description 03/30/2022 Telephone [facility] Endocrinology - [address] [address] Lizette Veloz RPH Appointment Related [...] in a nursing home (including now)? No 01/13/2022 Interpersonal Safety [...] 1317 EDT ----- Message from Lizette Veloz [facility] sent at 03/16/2022 14:47 EDT ----- Dr. [...] Visit [facility] Adult Primary Care - [address] [address] Carrington Calderon MD [address] [place] [address] [phone] 02/27/2024 8:30 EDT Telemedicine [facility] Sleep Program - [address] 020451 Dwight Colbert [address] [place] [address] [phone] 02/29/2024 10:30 EDT Appointment [facility] Radiology Nuclear Medicine and PET [address] 000011 02/29/2024 14:30 EDT Appointment [facility] Radiology Nuclear Medicine and PET [address] [id number] 03/01/2024 8:00 EDT Appointment [facility] Radiology Nuclear Medicine and PET [address] [phone] 03/01/2024 9:30 EDT Appointment [facility] Radiology Nuclear Medicine and PET [address] [address] documented as of this encounter Visit Diagnoses Not on filedocumented in this encounter Care Teams Resort Host Relationship Specialty Start Date End Date Carrington Calderon MD [address] [place] [address] [phone] PCP - General Internal Medicine - Primary Care 12/09/20 Abigail Díaz Rag Baler 04/21/23 Carmelo Hendrickson Coordinator 12/01/23 documented as of this encounter
--- OUTSIDE RECORDS SUMMARY | 2024-01-02 06:11 | XMS_ITS | Encounter Summary ---
Author Organization [facility] Address [address] [place] [address] Care Team Providers Care Clinical Application Manager Name Role Phone Carrington Calderon MD Primary Care Provi anders Reason for Visit * Reason Comments Diabetes * Consult (See Order Priority) - Specialty Report Received Specialty Diagnoses / Procedures Referred By Kit goode Referred To Contact Endocrinology Diagnoses Type 2 diabetes mellitus with diabetic polyneuropathy, with long-term current use of insulin ([facility]) Carrington Calderon MD 1 [facility] Level 1 [place] [address] [facility] Endocrinology [address] [place] [phone] Referral ID Status Reason Start Date Expiration Date Visits Requested Visits Authorized [id number] Specialty Report Received Specialty Services Required 01/29/2022 1 1 Encounter Details Date Type Department Care Team (Late st Contact Info) Description 03/15/2022 8:40 EDT Telemedicine [facility] Endocrinology - [address] [address] Eryn Mims DO [address] [place] [address] [address] [place] [address] Type 2 diabetes mellitus with [...] 0 ??? blood glucose test strips Brand: ServiceMax Cristo, use as directed if Freestyle Vignesh censor isnt working (Patient not taking: Reported on 10/09/2021) 100 Each 3 ??? blood glucose test strips One Touch Verio IQ or other brand compatible with meter and covered by patient's insurance. Testing QID. (Patient not taking: Reported on 10/09/2021) 100 Each 5 ??? flash glucose scanning reader (FREESTYLE VIGNESH 2 READER) misc 1 Device by [facility] (non-drug; comboroute) route continuous. 1 Each 0 ??? flash glucose sensor (FREESTYLE VIGNESH 14 DAY SENSOR) kit Inject 1 Kit into the skin every 14 days. 6 Kit 3 ??? flash glucose sensor (FREESTYLE VIGNESH 2 SENSOR) kit 1 Device by [facility] (non- drug; combo route) route continuous. 6 [...] [facility] Adult Primary Care - [address] [phone] Carrington Calderon MD [address] [phone] 02/27/2024 8:30 EDT Telemedicine [facility] Sleep Program - [address] 492121 Dwight Colbert [address] [place] [address] [phone] 02/29/2024 10:30 EDT Appointment [facility] Radiology Nuclear Medicine and PET - [address] [phone] 02/29/2024 14:30 EDT Appointment [facility] Radiology Nuclear Medicine and PET - [address] 579681 03/01/2024 8:00 EDT Appointment [facility] Radiology Nuclear Medicine and PET - [address] [address] 03/01/2024 9:30 EDT Appointment [facility] Radiology Nuclear Medicine and PET - [address] [address] documented as of this encounter Visit Diagnoses Diagnosis Type 2 diabetes mellitus with diabetic polyneuropathy, with long-term current use of insulin ([facility])- Primary documented in this encounter Discontinued Medications Medication Sig Discontinue Reason Start Date End Da te flash glucose sensor (FREESTYLE VIGNESH 2 SENSOR) kit 1 Device by misc (non-drug; combo route) route continuous. Reorder 10/01/2020 03/15/2022 SITagliptin (JANUVIA) 50 mg tablet Take 1 Tab by mouth daily. Reorder 09/02/2020 03/15/2022 documented as of this encounter Care Teams Clinical Application Manager Relationship Specialty Start Date End Date Carrington Calderon MD 1 [facility] Level 1 [place] [address] PCP - General Internal Medicine - Primary Care 12/09/20 documented as of this encounter
--- OUTSIDE RECORDS SUMMARY | 2024-01-02 06:11 | XMS_ITS | Encounter Summary ---
Author Organization [facility] Address [address] [place] [address] Care Team Providers Care Enrollment Manager Name Role Phone Carrington Calderon MD Primary Care Provi anders Reason for Visit * Reason Comments Med Change Request Encounter Details Date Type Department Care Team (Late st Contact Info) Description 12/20/2022 Refill [facility] Adult Primary Care [facility] 1 [place], [place] [address]46[address] Carrington Calderon MD 1 [facility] Level 1 [place] [address] Med Change Request Social History [...] 1215 EDT prochlorperazine (COMPAZINE) 25 mg suppository [[id number]] ?? Order Details Dose: 25 mg Route: [...] [facility] Adult Primary Care - [address] 921831 Carrington Calderon MD 1 [facility] 1 [place] [phone] 02/27/2024 8:30 EDT Telemedicine [facility] Sleep Program - [address] [phone] Dwight Colbert [address] [place] [address] [phone] 02/29/2024 10:30 EDT Appointment [facility] Radiology Nuclear Medicine and PET - [address] 272191 02/29/2024 14:30 EDT Appointment [facility] Radiology Nuclear Medicine and PET - [address] [address] 03/01/2024 8:00 EDT Appointment [facility] Radiology Nuclear Medicine and PET - [address] [address] 03/01/2024 9:30 EDT Appointment [facility] Radiology Nuclear Medicine and PET - [address] 049551 documented as of this encounter Visit Diagnoses Diagnosis Cyclic vomiting syndrome- Primary Persistent vomiting documented in this encounter Care Teams Enrollment Manager Relationship Specialty Start Date End Date Carrington Calderon MD 1 [facility] 1 [place] [address] PCP - General Internal Medicine - Primary Care 12/09/20 documented as of this encounter
--- OUTSIDE RECORDS SUMMARY | 2024-01-02 06:11 | XMS_ITS | Encounter Summary ---
Author Organization [facility] Address [address] [place] [address] Care Team Providers Care Truck Engine Assembler Name Role Phone Carrington Calderon MD Primary Care Provi anders Reason for Visit * Reason Comments Pre-op Exam Toe amputation Encounter Details Date Type Department Care Team (Late st Contact Info) Description 05/20/2022 13:45 EST Office Visit [facility] Adult Primary Care - [place] 1 [place], [place] 8860[address] Rachel Stein PA-C 1 [facility] Level 1 [place] [address] Type 2 diabetes mellitus with diabetic polyneuropathy, with long-term current use of insulin ([facility]) (Primary Dx); Preop examination Social History [...] slept in a [facility] (including now)? No 01/13/2022 Interpersonal Safety Answer [...] Care Everywhere. * Surgery Prep: General Info (Botswanan) documented in this encounter Progress Notes * Rachel Stein PA-C - 05/20/2022 7101 EST Subjective: Cristy Luo is a 37 y.o. female who presents to the office today for a preoperative consultation at the request of Dr. Ester Gabriel, who will perform a L third toe [facility] [place] Current Complaints: Failure of IV abx [place] SURGEON: Dr. Prudence Gabriel PROCEDURE: toe amputation [phone] Office name: [facility] Prior h/o of anesthetic [...] has a referral for therapy. ??? Diabetes ([facility]) A1c 10.3 on 11/28/2019 - poorly controlled ??? Diabetes mellitus, type 2 ([facility]) pt check blood sugars at [...] occasionally ??? Neuropathic diabetic ulcer of foot ([facility]) 09/17/2021 ??? Obesity, unspecified ??? Osteomyelitis ([facility]) of left great toe-s/p amputation ??? Peripheral neuropathy 08/12/20- Bilateral feet-Takes Gabapentin- pt just started this med. ??? Productive cough pt currently quitting smoking- clear secretions. ??? Spontaneous miscarriage 09/04/201502/18, 08/19. [facility] Family History Problem Relation Age of [...] daily. 400 Each 2 ??? lancets Brand: Nu-B-2B, use as directed if Freestyle Vignesh censor [...] with long-term current use of insulin ([facility]) ([facility]) 2. Preop examination No contraindications to [...] Visit [facility] Adult Primary Care - [address] [phone] Carrington Calderon MD [address] [phone] 02/27/2024 8:30 EDT Telemedicine [facility] Sleep Program - [address] 308751 Dwight Colbert [address] [place] [address] [phone] 02/29/2024 10:30 EDT Appointment [facility] Radiology Nuclear Medicine and PET [address] 197271 02/29/2024 14:30 EDT Appointment [facility] Radiology Nuclear Medicine and PET - [address] [id number] 03/01/2024 8:00 EDT Appointment [facility] Radiology Nuclear Medicine and PET [address] 782491 03/01/2024 9:30 EDT Appointment [facility] Radiology Nuclear Medicine and PET [address] [phone] documented as of this encounter Procedures Procedure Name Priority Date/Time Associated Diagnosis Comments ECG REPORT - SCANNED 05/21/2022 11:24 EST ECG REPORT - SCANNED 05/21/2022 11:24 EST EKG 12-LEAD Routine 05/20/2022 14:39 EST Type 2 diabetes mellitus with diabetic polyneuropathy, with long-term current use of insulin ([facility]) Preop examination documented in this encounter Results * ECG REPORT - SCANNED (05/21/2022 11:24 EST) 05/21/2022 11:2 4 EST Scan 2 Retail Sales Associate PROCEDURE/MINOR BRAULIO GICAL ORDERABLES * ECG REPORT - SCANNED (05/21/2022 11:24 EST) 05/21/2022 11:2 4 EST Scan 2 Retail Sales Associate PROCEDURE/MINOR BRAULIO GICAL ORDERABLES * EKG 12-LEAD (05/20/2022 14:39 EST) 05/20/2022 14:3 9 EST Narrative [facility] EKG - 05/20/2022 14:56 EST ? PC Site ? Test Date: ?2022-05-20 Pat Name: ? CRISTY LUO ?Department: ?? [facility] ? Room: ? Gender: ? Female ? Heel Layer: ?? [id number] : ?1985 ? Requested By: GARRISON KIRBY Order Number: [id number] ? Reading MD: ?? Rachel tSein PA- C ? Measurements Intervals ?[place] ? Rate: ? 114 ?P: ?57 ID: ? [id number] ?QRS: ?17 QRSD: ? 88 [...] Date: 2022-05-20 Pat Name: CRISTY LUO Department: [facility] Room: Gender: Female Heel Layer: [id number] : 1985 Requested By: GARRISON KIRBY Order Number: [id number] Reading MD: Rachel Colon Measurements Intervals [place] Rate: 114 P: 57 ID: [id number] QRS: 17 QRSD: 88 T: 28 [...] HERNANDEZ. Rachel Stein PA-C CARDIAC ECG ORDERA [facility] Organization Address City/State/ZIP Co de Phone Number [facility] EKG documented in this encounter Visit Diagnoses Diagnosis Type 2 diabetes mellitus with diabetic polyneuropathy, with long-term current use of insulin ([facility])- Primary Preop examination Preoperative examination, unspecified documented [...] with long-term current use of insulin ([facility]) Inject 1 Kit into the skin [...] documented as of this encounter Care Teams Truck Engine Assembler Relationship Specialty Start Date End Date Carrington Calderon MD 1 [facility] 1 [place] [address] PCP - General Internal Medicine - Primary Care 12/09/20 documented as of this encounter
--- OUTSIDE RECORDS SUMMARY | 2024-01-02 06:11 | XMS_ITS | Encounter Summary ---
Author Organization [facility] Address [address] [place] [address] Care Team Providers Care Compressor Mechanic Bus Name Role Phone Carrington Calderon MD Primary Care Provi anders Reason for Visit * Reason Onset Date Comments Medications Refill 02/01/2023 Encounter Details Date Type Department Care Team (Late st Contact Info) Description 02/01/2023 Refill [facility] Adult Primary Care [address] 890991 Carrington Calderon MD 1 [facility] Level 1 [place] [address] Medications Refill Social History Tobacco [...] slept in a [facility] (including now)? No 11/17/2022 Interpersonal Safety Answer [...] Visit [facility] Adult Primary Care - [address] [phone] Carrington Calderon MD [address] [phone] 02/27/2024 8:30 EDT Telemedicine [facility] Sleep Program - [address] [phone] Dwight Colbert [address] [place] [address] [phone] 02/29/2024 10:30 EDT [facility] Rad[facility] Nuclear Medicine and PET - [address] [address] 02/29/2024 14:30 EDT Appointment [facility] Radiology Nuclear Medicine and PET - [address] [address] 03/01/2024 8:00 EDT Appointment [facility] Radiology Nuclear Medicine and PET - [address] [address] 03/01/2024 9:30 EDT Appointment [facility] Radiology Nuclear Medicine and PET [address] [address] documented as of this encounter Visit Diagnoses [...] documented as of this encounter Care Teams Compressor Mechanic Bus Relationship Specialty Start Date End Date Carrington Calderon MD 1 [facility] 1 [place] [address] PCP - General Internal Medicine - Primary Care 12/09/20 documented as of this encounter
--- OUTSIDE RECORDS SUMMARY | 2024-01-02 06:11 | XMS_ITS | Encounter Summary ---
Author Organization [facility] Address [address] [place] [address] Care Team Providers Care Advanced Seal Delivery System Name Role Phone Carrington Calderon MD Primary Care Provi anders Reason for Visit * Reason Onset Date Comments No Show 04/02/2022 Encounter Details Date Type Department Care Team (Late st Contact Info) Description 04/02/2022 Telephone [facility] Adult Primary Care [facility] 1 [place], [place] [address] Carrington Calderon MD 1 [facility] Level 1 [place] [phone] No Show Social History Tobacco [...] not leave a message. Also sent a [employer] message to contact the office to reschedule [...] [facility] Adult Primary Care - [address] [phone] Carrington Calderon MD [address] [phone] 02/27/2024 8:30 EDT Telemedicine [facility] Sleep Program - [address] 297261 Dwight Colbert [address] [place] [phone] 02/29/2024 10:30 EDT Appointment [facility] Radiology Nuclear Medicine and PET - [address] 186511 02/29/2024 14:30 EDT Appointment [facility] Radiology Nuclear Medicine and PET - [address] [address] 03/01/2024 8:00 EDT Appointment [facility] Radiology Nuclear Medicine and PET [address] [address] 03/01/2024 9:30 EDT Appointment [facility] Radiology Nuclear Medicine and PET [address] [phone] documented as of this encounter Visit Diagnoses Not on filedocumented in this encounter Care Teams Advanced Seal Delivery System Relationship Specialty Start Date End Date Carrington Calderon MD 1 [facility] Level 1 [place] [address] PCP - General Internal Medicine - Primary Care 12/09/20 documented as of this encounter
--- OUTSIDE RECORDS SUMMARY | 2024-01-02 06:12 | XMS_ITS | Encounter Summary ---
Author Organization [facility] Address [address] [place] [address] Care Team Providers Care Glaze Wiper Name Role Phone Carrington Calderon MD Primary Care Provi anders Reason for Visit * Reason Onset Date Comments Prior Auth, Medication 01/29/2022 Encounter Details Date Type Department Care Team (Late st Contact Info) Description 01/29/2022 Telephone [facility] Adult Primary Care [address] [phone] Carrington Calderon MD 1 [facility] Level [address] [place] [phone] Prior Auth, Medication Social History Tobacco [...] [place] - 02/26/2022 1518 EDT Call to [facility] to check and see what is going on with the patients sensors at the patientis all out and needs these EDGARD. Per [facility] Azra, when this is ran it states drug therapy is not on file. OV notes and completed form have been faxed to [facility] for approval. * Telephone Encounter - Satinder [...] Free style Nissa 14 day sensor Mejia: [id number] documented in this encounter Plan of Treatment Upcoming Encounters Date Type Department Care Team (Late st Contact Info) Description 02/21/2024 9:45 EDT Office Visit [facility] Adult Primary Care - [address] [phone] Carrington Calderon MD [address] [phone] 02/27/2024 8:30 EDT Telemedicine [facility] Sleep Program - [address] [phone] Dwight Colbert [address] [place] [address] [phone] 02/29/2024 10:30 EDT Appointment [facility] Radiology Nuclear Medicine and [address] [phone] 02/29/2024 14:30 EDT Appointment [facility] Radiology Nuclear Medicine and [address] [phone] 03/01/2024 8:00 EDT Appointment [facility] Radiology Nuclear Medicine and PET [address] [phone] 03/01/2024 9:30 EDT Appointment [facility] Radiology Nuclear Medicine and PET [address] [address] documented as of this encounter Visit Diagnoses Not on filedocumented in this encounter Care Teams Glaze Wiper Relationship Specialty Start Date End Date Carrington Calderon MD [address] [place] [phone] PCP - General Internal Medicine - Primary Care 12/09/20 documented as of this encounter
--- OUTSIDE RECORDS SUMMARY | 2024-01-02 06:12 | XMS_ITS | Encounter Summary ---
Author Organization [facility] Address [address] [place] [address] Care Team Providers Care Cloth Layer Name Role Phone Carrington Calderon MD Primary Care Provi anders Encounter Details Date Type Department Care Team (Late st Contact Info) Description 02/12/2021 Orders Only [facility] Adult Primary Care - [place] 1 [place], [place] 486291 Carrington Calderon MD 1 [facility] Level 1 [place] [phone] Osteomyelitis of great toe of [...] [facility] Adult Primary Care - [address] 151901 Carrington Calderon MD 1 [facility] Level 1 [place] [address] 02/27/2024 8:30 EDT Telemedicine [facility] Sleep Program - [address] [address] Dwight Colbret [address] [place] [address] 02/29/2024 10:30 EDT Appointment [facility] Radiology Nuclear Medicine and PET - [address] [address] 02/29/2024 14:30 EDT Appointment [facility] Radiology Nuclear Medicine and PET - [address] [address] 03/01/2024 8:00 EDT Appointment [facility] Radiology Nuclear Medicine and PET [address] 411631 03/01/2024 9:30 EDT Appointment [facility] Radiology Nuclear Medicine and PET [address] [address] documented as of this encounter Visit Diagnoses Diagnosis Osteomyelitis of great toe of left foot (HCC-CMS)- Primary documented in this encounter Care Teams Cloth Layer Relationship Specialty Start Date End Date Carrington Calderon MD [address] [place] [phone] PCP - General Internal Medicine - Primary Care 12/09/20 documented as of this encounter
--- OUTSIDE RECORDS SUMMARY | 2024-01-02 06:12 | XMS_ITS | Encounter Summary ---
Author Organization [facility] Address [address] [place] [address] Care Team Providers Care Oem Sales Manager Name Role Phone Carrington Calderon MD Primary Care Provi anders Reason for Visit * Reason Onset Date Comments Medications Refill 08/25/2021 Encounter Details Date Type Department Care Team (Late st Contact Info) Description 08/25/2021 Refill [facility] Adult Primary Care [address] [phone] Carrington Calderon MD 1 [facility] Level 1 [place] [phone] Medications Refill Social History Tobacco Use Types [...] Visit [facility] Adult Primary Care - [address] [phone] Carrington Calderon MD [address] [place] [phone] 02/27/2024 8:30 EDT Telemedicine [facility] Sleep Program - [address] [phone] Dwight Colbert [address] [place] [address] [phone] 02/29/2024 10:30 EDT Appointment [facility] Radiology Nuclear Medicine and PET [address] [phone] 02/29/2024 14:30 EDT Appointment [facility] Radiology Nuclear Medicine and PET [address] [phone] 03/01/2024 8:00 EDT Appointment [facility] Radiology Nuclear Medicine and PET - [address] [phone] 03/01/2024 9:30 EDT Appointment [facility] Radiology Nuclear Medicine and PET [address] [phone] documented as of this encounter Visit Diagnoses [...] documented as of this encounter Care Teams Oem Sales Manager Relationship Specialty Start Date End Date Carrington Calderon MD 1 [facility] 1 [place] [address] PCP - General Internal Medicine - Primary Care 12/09/20 documented as of this encounter
--- OUTSIDE RECORDS SUMMARY | 2024-01-02 06:12 | XMS_ITS | Encounter Summary ---
Author Organization [facility] Address [address] [place] [address] Care Team Providers Care Steam Meter Reader Name Role Phone Carrington Calderon MD Primary [...] Info) Description 02/21/2024 9:45 EDT Office Visit [facility] Adult Primary Care - [address] [phone] Carrington Calderon MD [address] [phone] 02/27/2024 8:30 EDT Telemedicine [facility] Sleep Program - [address] [phone] Dwight Colbert [address] [place] [address] [phone] 02/29/2024 10:30 EDT Appointment [facility] Radiology Nuclear Medicine and PET - [address] [address] 02/29/2024 14:30 EDT [facility] Radiology Nuclear Medicine and PET - [address] [address] 03/01/2024 8:00 EDT [facility] Radiology Nuclear Medicine and PET - [address] [address] 03/01/2024 9:30 EDT Appointment [facility] Radiology Nuclear Medicine and PET - [address] [address] documented as of this encounter Visit Diagnoses Not on filedocumented in this encounter Care Teams Steam Meter Reader Relationship Specialty Start Date End Date Carrington Calderon MD 1 [facility] 1 [place] [address] PCP - General Internal Medicine - Primary Care 12/09/20 documented as of this encounter
--- OUTSIDE RECORDS SUMMARY | 2024-01-02 06:12 | XMS_ITS | Encounter Summary ---
Author Organization [facility] Address [address] [place] [address] Care Team Providers Care Chief Solution Architect Name Role Phone Carrington Calderon MD Primary Care Provi anders Reason for Visit * Reason Onset Date Comments No Show 09/28/2021 Encounter Details Date Type Department Care Team (Late st Contact Info) Description 09/28/2021 Telephone [facility] Adult Primary Care [address] [phone] Carrington Calderon MD 1 [facility] Level 1 [place] [phone] No Show Social History Tobacco [...] 02/21/2024 9:45 EDT Office Visit [facility] Adult Primary Care - [address] [phone] Carrington Calderon MD [address] [phone] 02/27/2024 8:30 EDT Telemedicine [facility] Sleep Program - [address] [phone] Colbert Dwight [address] [place] [address] [phone] 02/29/2024 10:30 EDT Appointment [facility] Radiology Nuclear Medicine and PET [address] [phone] 02/29/2024 14:30 EDT Appointment [facility] Radiology Nuclear Medicine and PET [address] 055181 03/01/2024 8:00 EDT Appointment [facility] Radiology Nuclear Medicine and PET [address] [phone] 03/01/2024 9:30 EDT Appointment [facility] Radiology Nuclear Medicine and PET [address] [phone] documented as of this encounter Visit Diagnoses Not on filedocumented in this encounter Care Teams Chief Solution Architect Relationship Specialty Start Date End Date Carrington Calderon MD [address] [phone] PCP - General Internal Medicine - Primary Care 12/09/20 documented as of this encounter
--- OUTSIDE RECORDS SUMMARY | 2024-01-02 06:12 | XMS_ITS | Encounter Summary ---
Author Organization [facility] Address [address] [place] [address] Care Team Providers Care Director Of Adult Epilepsy Name Role Phone Carrington Calderon MD Primary Care Provi anders Reason for Visit * Reason Comments Medications Refill Diabetes Encounter Details Date Type Department Care Team (Late st Contact Info) Description 03/27/2021 13:30 EDT Office Visit [facility] Adult Primary Care - [address] [phone] Avelino Dowling MD [address] [place] [phone] Diabetes 1.5, managed as type 2 (HCC) [...] Avelino Dowling MD - 03/27/2021 1330 EDT [facility] DEPARTMENT OF INTERNAL MEDICINE [facility] DATE: 03/27/2021 PATIENT NAME: Cristy Luo AGE: [...] without sciatica ??? Diabetic foot infection (HCC-CMS) [facility] ??? Diabetic foot ulcer (HCC-CMS) ([facility] ??? Diabetic foot ulcer associated with diabetes mellitus due to underlying condition (HCC-CMS) ([facility]) ??? Osteomyelitis of great toe of left foot (HCC-CMS) ([facility]) ??? 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 (HCC-CMS) ([facility]) ??? Osteomyelitis of toe of left foot (HCC) ??? Type 2 diabetes mellitus with diabetic polyneuropathy, with long-term current use of insulin (HCC-CMS) ([facility]) ??? Hx of ectopic ??? Admission for [...] VIGNESH 2 SENSOR) kit 1 Device by [facility] (non- drug; combo route) route continuous. ??? [...] visit. * Catherine Liz MD - 03/27/2021 2841 EDT I have discussed and seen the [...] [facility] - [address] [phone] Carrington Calderon MD [address] [phone] 02/27/2024 8:30 EDT Telemedicine [facility] Sleep Program - [address] [phone] Dwight Colbert [address] [place] [address] 02/29/2024 10:30 EDT Appointment [facility] Radiology Nuclear Medicine and PET - [address] [address] 02/29/2024 14:[address] [facility] Radiology Nuclear Medicine and PET [address] 320791 03/01/2024 8:[address] [facility] Radiology Nuclear Medicine and PET [address] [phone] 03/01/2024 9:[address] [facility] Radiology Nuclear Medicine and PET [address] [phone] documented as of this encounter Visit Diagnoses Diagnosis Diabetes 1.5, managed as type 2 ([facility])- Primary Type II or unspecified type diabetes [...] 06/11/2021 added in this encounter Care Teams Director Of Adult Epilepsy Relationship Specialty Start Date End Date Carrington Calderon MD 1 [facility] Level 1 [place] [phone] PCP - General Internal Medicine - Primary Care 12/09/20 documented as of this encounter
--- OUTSIDE RECORDS SUMMARY | 2024-01-02 06:12 | XMS_ITS | Encounter Summary ---
Author Organization [facility] Address [address] [place] [address] Care Team Providers Care Can Conveyor Feeder Name Role Phone Carrington Calderon MD Primary Care Provi anders Reason for Visit * Reason Onset Date Comments Medication Problem 01/14/2022 Encounter Details Date Type Department Care Team (Late st Contact Info) Description 01/14/2022 Telephone [facility] Adult Primary Care [facility] 1 [place], [place] [address] Carrington Calderon MD 1 [facility] Level 1 [place] [address] Medication Problem Social History Tobacco [...] No 01/13/2022 Housing Stability Vital Sign Answer Nrom e Recorded Unable to Pay for Housing [...] - Kamini Raya - 01/14/2022 1556 EDT [facility] Pharmacist-Deonna called in regards to prescription for Tramadol sent 01/12/2022. She needs a diagnosis code before they can fill script. documented in this encounter Plan of Treatment Upcoming Encounters Date Type Department Care Team (Late st Contact Info) Description 02/21/2024 9:45 EDT Office Visit [facility] Adult Primary Care - [address] [phone] Carrington Calderon MD [address] [phone] 02/27/2024 8:30 EDT Telemedicine [facility] Sleep Program - [address] [phone] Dwight Colbert [address] [place] [address] [phone] 02/29/2024 10:30 EDT Appointment [facility] Radiology Nuclear Medicine and PET - [address] [phone] 02/29/2024 14:30 EDT Appointment [facility] Radiology Nuclear Medicine and PET - [address] [address] 03/01/2024 8:00 EDT Appointment [facility] Radiology Nuclear Medicine and PET [address] [address] 03/01/2024 9:30 EDT Appointment [facility] Radiology Nuclear Medicine and PET - [address] [phone] documented as of this encounter Visit Diagnoses Not on filedocumented in this encounter Care Teams Can Conveyor Feeder Relationship Specialty Start Date End Date Carrington Calderon MD 1 [facility] Level 1 [place] [phone] PCP - General Internal Medicine - Primary Care 12/09/20 documented as of this encounter
--- OUTSIDE RECORDS SUMMARY | 2024-01-02 06:12 | XMS_ITS | Encounter Summary ---
Author Organization [facility] Address [address] [place] [address] Care Team Providers Care Subway Car Repairer Name Role Phone Carrington Calderon MD Primary Care Provi anders Reason for Visit * Reason Onset Date Comments Heartburn 01/26/2021 Encounter Details Date Type Department Care Team (Late st Contact Info) Description 01/26/2021 Telephone [facility] Adult Primary Care - [place] 1 [place], [place] 0[address] Carrington Calderon MD 1 [facility] Level 1 [place] [address] Heartburn Social History Tobacco Use [...] Encounter - Eryn Navarrete RN - 01/26/2021 9624 EDT Spoke with patient and reviewed She [...] already taking any heartburn medications? Could do [id number] daily if not. * Telephone Encounter - [...] [facility] - [address] [phone] Carrington Calderon MD 1 [facility] 1 [place] [phone] 02/27/2024 8:30 EDT Telemedicine [facility] Sleep Program - [address] [phone] Dwight Colbert [address] [place] [address] [phone] 02/29/2024 10:30 EDT Appointment [facility] Radiology Nuclear Medicine and PET - [address] [phone] 02/29/2024 14:30 EDT [facility]ment [facility] Radiology Nuclear Medicine and PET - [address] [address] 03/01/2024 8:00 EDT [facility] Radiology Nuclear Medicine and PET - [address] [address] 03/01/2024 9:30 EDT Appointment [facility] Radiology Nuclear Medicine and PET - [address] [address] documented as of this encounter Visit Diagnoses Not on filedocumented in this encounter Care Teams Subway Car Repairer Relationship Specialty Start Date End Date Carrington Calderon MD 1 [facility] 1 [place] [address] PCP - General Internal Medicine - Primary Care 12/09/20 documented as of this encounter
--- OUTSIDE RECORDS SUMMARY | 2024-01-02 06:12 | XMS_ITS | Encounter Summary ---
Author Organization [facility] Address [address] [place] [address] Care Team Providers Care Intake Nurse Name Role Phone Carrington Calderon MD Primary Care Provi anders Encounter Details Date Type Department Care Team (Late st Contact Info) Description 01/13/2022 Patient Outreach [facility] Adult Primary Care - [place] 1 [place], [place] [address] Amrita Asencio Social History Tobacco Use Types [...] Amrita Asencio - 01/13/2022 1537 EDT [facility] Linecasting Machine Keyboard Operator Care Coordination Linecasting Machine Keyboard Operator spoke with Stella on phone in order [...] 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 PLAN: department sales manager reviewed current mental health resources with [...] Visit [facility] Adult Primary Care - [address] [address] Carrington Calderon MD [address] [place] [phone] 02/27/2024 8:30 EDT Telemedicine [facility] Sleep Program - [address] [address] Dwight Colbert [address] [place] [address] 02/29/2024 10:30 EDT Appointment [facility] Radiology Nuclear Medicine and PET [address] 168701 02/29/2024 14:30 EDT Appointment [facility] Radiology Nuclear Medicine and PET [address] 290471 03/01/2024 8:00 EDT Appointment [facility] Radiology Nuclear Medicine and PET [address] 053441 03/01/2024 9:30 EDT Appointment [facility] Radiology Nuclear Medicine and PET [address] [address] documented as of this encounter Visit Diagnoses Not on filedocumented in this encounter Care Teams Intake Nurse Relationship Specialty Start Date End Date Carrington Calderon MD [address] [place] [phone] PCP - General Internal Medicine - Primary Care 12/09/20 documented as of this encounter
--- OUTSIDE RECORDS SUMMARY | 2024-01-02 06:12 | XMS_ITS | Encounter Summary ---
Author Organization [facility] Address [address] [place] [address] Care Team Providers Care Sand Analyst Name Role Phone Carrington Calderon MD Primary Care Provi anders Encounter Details Date Type Department Care Team (Late st Contact Info) Description 04/22/2021 Orders Only [facility] Adult Primary Care - [place] 1 [place], [place] [phone] Carrington Calderon MD 1 [facility] Level 1 [place] [phone] Type 2 diabetes mellitus with [...] Notes * Carrington Calderon MD - 04/22/2021 155 EST I think we can skip lipids. [...] Visit [facility] Adult Primary Care [address] 900181 Carrington Calderon MD [address] [place] [phone] 02/27/2024 8:30 EDT Telemedicine [facility] Sleep Program - [address] 148691 Dwight Colbert [address] [place] [address] [phone] 02/29/2024 10:30 EDT Appointment [facility] Radiology Nuclear Medicine and PET - [address] 101251 02/29/2024 14:30 EDT Appointment [facility] Radiology Nuclear Medicine and PET [address] [phone] 03/01/2024 8:00 EDT Appointment [facility] Radiology Nuclear Medicine and PET [address] 932811 03/01/2024 9:30 EDT Appointment [facility] Radiology Nuclear Medicine and PET [address] 537301 documented as of this encounter Visit Diagnoses Diagnosis Type 2 diabetes mellitus with hyperosmolarity without coma, with long-term current use of insulin ([facility])- Primary Screening for hepatitis C declined Encounter for hepatitis C screening test for low risk patient documented in this encounter Care Teams Sand Analyst Relationship Specialty Start Date End Date Carrington Calderon MD [address] [place] [phone] PCP - General Internal Medicine - Primary Care 12/09/20 documented as of this encounter
--- OUTSIDE RECORDS SUMMARY | 2024-01-02 06:12 | XMS_ITS | Encounter Summary ---
Author Organization [facility] Address [address] [place] [address] Care Team Providers Care Second Officer Name Role Phone Carrington Calderon MD Primary Care Provi anders Reason for Visit * Reason Onset Date Comments Medications Refill 10/30/2021 tramadol / lo razepam Encounter Details Date Type Department Care Team (Late st Contact Info) Description 10/30/2021 Refill [facility] Adult Primary Care - [address] [phone] Carrington Calderon MD 1 [facility] Level 1 [place] [phone] Medications Refill (tramadol / lorazepam) [...] [facility] Adult Primary Care - [address] 528151 Carrington Calderon MD [address] [place] [phone] 02/27/2024 8:30 EDT Telemedicine [facility] Sleep Program - [address] 186391 Dwight Colbert [address] [place] [address] [phone] 02/29/2024 10:30 EDT Appointment [facility] Radiology Nuclear Medicine and PET [address] 705761 02/29/2024 14:30 EDT Appointment [facility] Radiology Nuclear Medicine and PET [address] [phone] 03/01/2024 8:00 EDT Appointment [facility] Radiology Nuclear Medicine and PET [address] [phone] 03/01/2024 9:30 EDT Appointment [facility] Radiology Nuclear Medicine and PET [address] [phone] documented as of this encounter Visit Diagnoses [...] documented as of this encounter Care Teams Second Officer Relationship Specialty Start Date End Date Carrington Calderon MD 1 [facility] 1 [place] [phone] PCP - General Internal Medicine - Primary Care 12/09/20 documented as of this encounter
--- OUTSIDE RECORDS SUMMARY | 2024-01-02 06:12 | XMS_ITS | Encounter Summary ---
Author Organization [facility] Address [address] [place] [address] Care Team Providers Care Chief Deputy Court Clerk Name Role Phone Carrington Calderon MD Primary Care Provi anders Encounter Details Date Type Department Care Team (Late st Contact Info) Description 12/04/2021 Orders Only [facility] Adult Primary Care - [place] 1 [place], [place] 800261 Carrington Calderon MD 1 [facility] Level 1 [place] [address] Social History Tobacco Use Types [...] [facility] - [place] 1 [place], [place] 232531 Carrington Calderon MD 1 [facility] Level 1 [place] [phone] 02/27/2024 8:30 EDT Telemedicine [facility] Sleep Program - [address] [address] Dwight Colbert [address] [place] [address] 02/29/2024 10:30 EDT Appointment [facility] Radiology Nuclear Medicine and PET [address] [address] 02/29/2024 14:30 EDT Appointment [facility] Radiology Nuclear Medicine and PET [address] 553291 03/01/2024 8:00 EDT Appointment [facility] Radiology Nuclear Medicine and [address] [phone] 03/01/2024 9:30 EDT Appointment [facility] Radiology [facility] and [address] [address] documented as of this encounter Visit Diagnoses Not on filedocumented in this encounter Discontinued Medications Medication Sig Discontinue Reason Start Date End Da te traMADol (ULTRAM) 50 mg tablet TAKE 1 TABLET BY MOUTH EVERY 6 HOURS NEEDED FOR PAIN - DAILY MAX 4 TABLETS (200MG) Reorder 10/30/2021 12/04/2021 documented as of this encounter Care Teams Chief Deputy Court Clerk Relationship Specialty Start Date End Date Carrington Calderon MD 1 [facility] 1 [place] [phone] PCP - General Internal Medicine - Primary Care 12/09/20 documented as of this encounter
--- OUTSIDE RECORDS SUMMARY | 2024-01-02 06:12 | XMS_ITS | Encounter Summary ---
Author Organization [facility] Address [address] [place] [address] Care Team Providers Care Blueprint Duplicator Name Role Phone Carrington Calderon MD Primary Care Provi anders Reason for Visit * Reason Comments Other Encounter Details Date Type Department Care Team (Late st Contact Info) Description 07/09/2021 [facility] Adult Primary Care [facility] 1 [place], [place] [address] Carrington Calderon MD 1 [facility] Level 1 [place] [address] Other Social History Tobacco Use [...] Mahan - 07/10/2021 1226 EST Sydnee from [facility] pharmacy calling to requestion some information. 1)She would like to know the associated diagnosis with the tramadol for their records. 2)She is also wondering if provider is aware she is taking tramadol and lorazepam. * Telephone Encounter - Jesi Love RN - 07/10/2021 1122 EST Medication(s) Requested: tramadol Preferred Pharmacy: [facility] Is patient out of medication? Unknown Last Refill Date: 06/17/21 Last Visit Date with Ordering Provider: 05/13/21 Next Non-Acute Visit Date Scheduled with Care Team: Yes. 08/25/21 JESI LOVE RN 07/10/2021 11:25 documented in this encounter Plan of Treatment Upcoming Encounters Date Type Department Care Team (Late st Contact Info) Description 02/21/2024 9:45 EDT Office Visit [facility] Adult Primary Care - [address] [phone] Carrington Calderon MD [address] [phone] 02/27/2024 8:30 EDT Telemedicine [facility] Sleep Program - [address] [phone] Dwight Colbert [address] [place] [address] [phone] 02/29/2024 10:30 EDT Appointment [facility] Radiology Nuclear Medicine and PET - [address] 010861 02/29/2024 14:30 EDT Appointment [facility] Radiology Nuclear Medicine and PET - [address] [phone] 03/01/2024 8:00 EDT Appointment [facility] Radiology Nuclear Medicine and PET - [address] [address] 03/01/2024 9:30 EDT Appointment [facility] Radiology Nuclear Medicine and PET [address] [address] documented as of this encounter Visit Diagnoses Not on filedocumented in this encounter Discontinued Medications Medication Sig Discontinue Reason Start Date End Da te traMADol (ULTRAM) 50 mg tablet Take 1 Tablet by mouth every 6 hours as needed for Pain. Daily Max: 200 mg 06/17/2021 07/10/2021 documented as of this encounter Care Teams Blueprint Duplicator Relationship Specialty Start Date End Date Carrington Calderon MD [address] [facility] 1 [place] [address] PCP - General Internal Medicine - Primary Care 12/09/20 documented as of this encounter
--- OUTSIDE RECORDS SUMMARY | 2024-01-02 06:12 | XMS_ITS | Encounter Summary ---
Author Organization [facility] Address [address] [place] [address] Care Team Providers Care Drilling Machine Runner Name Role Phone Carrington Calderon MD Primary Care Provi anders Reason for Visit * (Routine/Next Available) - Receiving Office to Obtain Authorization Specialty Diagnoses / Procedures Referred By Kit goode Referred To Contact Procedures XR OUTSIDE IMAGES MSK Unknown, Provider, Referral ID Status Reason Start Date Expiration Date Visits Requested Visits Authorized [id number] Receiving Office to Obtain Authorization 09/12/2021 1 1 Encounter Details Date Type Department Care Team (Latest Contact Info) Description 09/12/2021 16:35 EDT - 09/12/2021 23:59 EDT Hospital Encounter [facility] Secondary Reads [place] Discharge Disposition: Home [...] VIGNESH 2 READER) misc 1 Device by [facility] (non-drug; combo route) route continuous. 1 Each 10/01/2020 05/21/2022 flash glucose sensor (FREESTYLE VIGNESH 2 SENSOR) kit 1 Device by [facility] (non-drug; combo route) route continuous. 6 Kit 3 10/01/2020 03/15/2022 gabapentin (NEURONTIN) 300 mg capsuleIndications:Diab etic polyneuropathy associated with type 2 diabetes mellitus ([facility]) Take 300mg in the morning [...] hyperglycemia, with long-term current use of insulin ([facility]) Use 1 pen needle as [...] Info) Description 02/21/2024 9:45 EDT Office Visit [facility] Adult Primary Care - [address] [phone] Carrington Calderon MD [address] [place] [address] 1 [place] [address] 02/27/2024 8:30 EDT Telemedicine [facility] Sleep Program - [address] 1395[address] Dwight Colbert [address] [place] [phone] 02/29/2024 10:30 EDT Appointment [facility] Radiology Nuclear Medicine and PET - [address] [address] 02/29/2024 14:30 EDT Appointment [facility] Radiology Nuclear Medicine and PET - [address] [address] 03/01/2024 8:00 EDT Appointment [facility] Radiology Nuclear Medicine and PET - [address] [address] 03/01/2024 9:30 EDT Appointment [facility] Radiology Nuclear Medicine and PET - [address] [address] documented as of this encounter Procedures Procedure Name Priority Date/Time Associated Diagnosis Comments XR OUTSIDE IMAGES MSK Routine 09/12/2021 16:35 EDT documented in this encounter Results * XR OUTSIDE IMAGES MSK (09/12/2021 16:35 EDT) Narrative 09/12/2021 16:35 EDT This is a non-reportable exam. Provider Unknown MD BUTLER OTHER IMAGING OR DERABLES documented in this encounter Visit Diagnoses Not on filedocumented in this encounter Care Teams Drilling Machine Runner Relationship Specialty Start Date End Date Carrington Calderon MD 1 [facility] 1 [place] [address] PCP - General Internal Medicine - Primary Care 12/09/20 documented as of this encounter
--- OUTSIDE RECORDS SUMMARY | 2024-01-02 06:12 | XMS_ITS | Encounter Summary ---
Author Organization [facility] Address [address] [place] [address] Care Team Providers Care Rejoiner Name Role Phone Carrington Calderon MD Primary Care Provi anders Reason for Visit * Reason Comments Skin Ulcer * Consult (Routine) - Authorization Not Required Specialty Diagnoses / Procedures Referred By Kit goode Referred To Contact Orthopedic Surgery Diagnoses Diabetic ulcer of right great toe (HCC-CMS) Katiana Adams NP [address] [place] [address] Elza Navarro DPM [address] [place] [phone] Referral ID Status Reason Start Date Expiration Date Visits Requested Visits Authorized [id number] Authorization Not Required 1 1 Encounter Details Date Type Department Care Team (Late Contact Info) Description 09/17/2021 15:00 EDT Office Visit [facility] Foot & Ankle Program - [address] [place] [address] Fadi Barahona NP [address] [place] [address] Neuropathic diabetic ulcer of foot [...] ICD-9-CM 1. Neuropathic diabetic ulcer of foot ([facility]) E11.40 250.60 OFFLOADING SURGICAL SHOE (L3260) E11.621 250.80 L97.509 357.2 707.15 right great toe 2. Type 2 diabetes mellitus with diabetic polyneuropathy, with long-term current use of insulin ([facility]) ([facility]) E11.42 250.60 OFFLOADING SURGICAL SHOE (L3260) Z79.4 [...] the next morning they went to the [facility] in [place], [place] where she was prescribed antibiotics. She [...] managed by Mary Zafar NP, at the [facility] but, ever since Mary [...] 2020 after an ulcer got infected. Work: [id number] Foot & Ankle Pain Assessment: Pain Orientation : Right Pain Location: Toe (GRT) Numeric Pain Level (Scale 1-10): 0 Pain in another site? : No Past medical history, medications and allergies were noted in [facility]. The patient did not fill out the intake form Patient Active Problem List Diagnosis Date Noted ??? Neuropathic diabetic ulcer of foot ([facility]) 09/17/2021 ??? Chronic midline low back pain without sciatica 11/26/2019 ??? Chronic left ear pain 09/04/2015 ??? Gastroparesis 08/10/2020 ??? Type 2 diabetes mellitus with diabetic polyneuropathy, with long-term current use of insulin ([facility]) ([facility]) 06/05/2020 ??? Family history of rheumatoid arthritis [...] has a referral for therapy. ??? Diabetes ([facility]) A1c 10.3 on 11/28/2019 - poorly controlled ??? Diabetes mellitus, type 2 ([facility]) pt check blood sugars at [...] occasionally ??? Neuropathic diabetic ulcer of foot ([facility]) 09/17/2021 ??? Obesity, unspecified ??? Osteomyelitis ([facility]) of left great toe-s/p amputation ??? Peripheral [...] Precision Cristo, use as directed if Freestyle Ivgnesh censor isnt working 100 Each 3 ??? [...] long-term current use of insulin ([facility]) ([facility]) OFFLOADING SURGICAL SHOE (L3260) Other Orders Placed [...] prepared with speech recognition software or keyboard manager data warehouse techniques. Minor irregularities or keyboarding misprints may be present documented in this encounter Plan of Treatment Upcoming Encounters Date Type Department Care Team (Late st Contact Info) Description 02/21/2024 9:45 EDT Office Visit [facility] Adult Primary Care - [address] 818241 Carrington Calderon MD [address] [phone] 02/27/2024 8:30 EDT Telemedicine [facility] Sleep Program - [address] 224971 Dwight Colbert [address] [place] [phone] 02/29/2024 10:30 EDT Appointment [facility] Radiology Nuclear Medicine and [address] [phone] 02/29/2024 14:30 EDT Appointment [facility] Radiology Nuclear Medicine and [address] [phone] 03/01/2024 8:00 EDT Appointment [facility] Radiology Nuclear Medicine and PET [address] [phone] 03/01/2024 9:30 EDT Appointment [facility] Radiology Nuclear Medicine and PET [address] [phone] documented as of this encounter Visit Diagnoses [...] 22 documented in this encounter Care Teams Rejoiner Relationship Specialty Start Date End Date Carrington Calderon MD 1 [facility] 1 [place] [phone] PCP - General Internal Medicine - Primary Care 12/09/20 documented as of this encounter
--- OUTSIDE RECORDS SUMMARY | 2024-01-02 06:12 | XMS_ITS | Encounter Summary ---
Author Organization [facility] Address [address] [place] [address] Care Team Providers Care Cassandra Developer Name Role Phone Carrington Calderon MD Primary Care Provi anders Reason for Visit * Reason Onset Date Comments Medications Refill 06/17/2021 Encounter Details Date Type Department Care Team (Late st Contact Info) Description 06/17/2021 Telephone [facility] Adult Primary Care [address] 184511 Carrington Calderon MD 1 [facility] Level 1 [place] [phone] Medications Refill Social History Tobacco Use Types [...] Telephone Encounter - Bettyleny Karen - 06/17/2021 09 EST Patient was seen and asked about this at her appointment. Medication(s) Requested: Tramadol Preferred Pharmacy: [place] Is patient out of medication? Yes Last Refill Date: 11/04/2020 Last Visit Date with Ordering Provider: 06/11/2021 Next Non-Acute Visit Date Scheduled with Care Team: Yes. Karen Trujillo 06/17/2021 9:28 documented in this encounter Plan of Treatment Upcoming Encounters Date Type Department Care Team (Late st Contact Info) Description 02/21/2024 9:45 EDT Office Visit [facility] Adult Primary Care - [address] [phone] Carrington Calderon MD [address] [phone] 02/27/2024 8:30 EDT Telemedicine [facility] Sleep Program - [address] 110591 Dwight Colbert [address] [place] [phone] 02/29/2024 10:30 EDT Appointment [facility] Radiology Nuclear Medicine and PET - [address] 387[address] 02/29/2024 14:30 EDT Appointment [facility] Radiology Nuclear Medicine and PET - [address] [id number] 03/01/2024 8:00 EDT Appointment [facility] Radiology Nuclear Medicine and PET - Main [address] 538501 03/01/2024 9:30 EDT Appointment [facility] Radiology Nuclear Medicine and PET - [address] [address] documented as of this encounter Visit Diagnoses Not on filedocumented in this encounter Discontinued Medications Medication Sig Discontinue Reason Start Date End Da te traMADol (ULTRAM) 50 mg tablet Take 1 Tab by mouth every 6 hours as needed for Pain. Daily Max: 200 mg Reorder 11/04/2020 06/17/2021 documented as of this encounter Care Teams Cassandra Developer Relationship Specialty Start Date End Date Carrington Calderon MD 1 [facility] 1 [place] [address] PCP - General Internal Medicine - Primary Care 12/09/20 documented as of this encounter
--- OUTSIDE RECORDS SUMMARY | 2024-01-02 06:12 | XMS_ITS | Encounter Summary ---
Author Organization [facility] Address [address] [place] [address] Care Team Providers Care Cell Attendant Name Role Phone Carrington Calderon MD Primary Care Provi anders Abigail Díaz Unavailable [phone] Carmelo Hendrickson Unavailable Unavailable Reason for Visit * Reason Onset Date Comments Appointment Related 02/05/2022 LVM in regar ds to zomm appt. Adivised to call back for any questions or concerns. x2 Encounter Details Date Type Department Care Team (Late st Contact Info) Description 02/05/2022 Telephone [facility] Gastroenterology - [address] [phone] Scott Arzate MD [address] [facility], Level [address] [place] [address] Appointment Related (LVM in regards [...] Visit [facility] Adult Primary Care - [address] 500611 Carrington Calderon MD [address] [address] 02/27/2024 8:30 EDT Telemedicine [facility] Sleep Program - [address] 089181 Dwight Colbert [address] [place] [phone] 02/29/2024 10:30 EDT Appointment [facility] Radiology Nuclear Medicine and PET - [address] 363431 02/29/2024 14:30 EDT Appointment [facility] Radiology Nuclear Medicine and PET - [address] 285121 03/01/2024 8:00 EDT Appointment [facility] Radiology Nuclear Medicine and PET - [address] 457981 03/01/2024 9:30 EDT Appointment [facility] Radiology Nuclear Medicine and PET - [address] [address] documented as of this encounter Visit Diagnoses Not on filedocumented in this encounter Care Teams Cell Attendant Relationship Specialty Start Date End Date Carrington Calderon MD 1 [facility] 1 [place] [phone] PCP - General Internal Medicine - Primary Care 12/09/20 Abigail Díaz Patient Assistant 04/21/23 Carmelo Hendrickson Coordinator 12/01/23 documented as of this encounter
--- OUTSIDE RECORDS SUMMARY | 2024-01-02 06:12 | XMS_ITS | Encounter Summary ---
Author Organization [facility] Address [address] [place] [address] Care Team Providers Care Headliner Installer Name Role Phone Carrington Calderon MD Primary Care Provi anders Reason for Visit * Reason Onset Date Comments Medications Refill 01/11/2022 Encounter Details Date Type Department Care Team (Late st Contact Info) Description 01/11/2022 Refill [facility] Adult Primary Care [address] 597661 Carrington Calderon MD 1 [facility] Level 1 [place] [address] Medications Refill Social History Tobacco [...] No 01/13/2022 Housing Stability Vital Sign Answer Onrm e Recorded Unable to Pay for Housing [...] 02/21/2024 9:45 EDT Office Visit [facility] Adult Primary Care - [address] 826841 Carrington Calderon MD [address] [phone] 02/27/2024 8:30 EDT Telemedicine [facility] Sleep Program - [address] 563121 Dwight Colbert [address] [place] [phone] 02/29/2024 10:[address] [facility] Radiology Nuclear Medicine and PET [address] [address]30051 02/29/2024 14:[address] [facility] Radiology Nuclear Medicine and PET [address] 401861 03/01/2024 8:[address] [facility] Radiology Nuclear Medicine and PET [address] [id number] 03/01/2024 9:[address] [facility] Radiology Nuclear Medicine and PET [address] [phone] documented as of this encounter Visit Diagnoses Not on filedocumented in this encounter Discontinued Medications Medication Sig Discontinue Reason Start Date End Da te traMADol (ULTRAM) 50 mg tablet TAKE 1 TABLET BY MOUTH EVERY 6 HOURS NEEDED FOR PAIN - DAILY MAX 4 TABLETS (200MG) Reorder 12/04/2021 01/11/2022 documented as of this encounter Care Teams Headliner Installer Relationship Specialty Start Date End Date Carrington Calderon MD [address] [place] [phone] PCP - General Internal Medicine - Primary Care 12/09/20 documented as of this encounter
--- OUTSIDE RECORDS SUMMARY | 2024-01-02 06:12 | XMS_ITS | Encounter Summary ---
Author Organization [facility] Address [address] [place] [address] Care Team Providers Care Pantry Attendant Name Role Phone Carrington Calderon MD Primary Care Provi anders Reason for Visit * Reason Onset Date Comments Medications Refill 03/12/2021 Encounter Details Date Type Department Care Team (Late st Contact Info) Description 03/12/2021 Telephone [facility] Adult Primary Care - [place] 1 [place], [place] [phone] Carrington Calderon MD 1 [facility] Level 1 [place] [address] Medications Refill Social History Tobacco [...] 0914 EDT Medication(s) Requested: Lorazepam [facility] Is patient out of medication? Yes Last Refill Date: 12/31/2020 Last Visit Date with Ordering Provider: 11/04/2020 Next Non-Acute Visit Date Scheduled with Care Team: No. Karen Trujillo 03/12/2021 9:15 documented in this encounter Plan of Treatment Upcoming Encounters Date Type Department Care Team (Late st Contact Info) Description 02/21/2024 9:45 EDT Office Visit [facility] Adult Primary Care - [address] 220811 Carrington Calderon MD [address] [phone] 02/27/2024 8:30 EDT Telemedicine [facility] Sleep Program - [address] [phone] Dwight Colbert [address] [place] [phone] 02/29/2024 10:30 EDT Appointment [facility] Radiology Nuclear Medicine and PET - [address] [address] 02/29/2024 14:30 EDT Appointment [facility] Radiology Nuclear Medicine and PET [address] [address] 03/01/2024 8:00 EDT Appointment [facility] Radiology Nuclear Medicine and PET [address] [address] 03/01/2024 9:30 EDT Appointment [facility] Radiology Nuclear Medicine and PET - [address] [address] documented as of this encounter Visit Diagnoses [...] documented as of this encounter Care Teams Pantry Attendant Relationship Specialty Start Date End Date Carrington Calderon MD 1 [facility] [place] 1 [place] [address] PCP - General Internal Medicine - Primary Care 12/09/20 documented as of this encounter
--- OUTSIDE RECORDS SUMMARY | 2024-01-02 06:12 | XMS_ITS | Encounter Summary ---
Author Organization [facility] Address [address] [place] [address] Care Team Providers Care Elevated Work Platform Operator Name Role Phone Carrington Calderon MD Primary Care Provi anders Reason for Visit * Reason Comments Medication Management Encounter Details Date Type Department Care Team (Late st Contact Info) Description 06/11/2021 9:45 EST Office Visit [facility] Adult Primary Care - [place] 1 [place], [place] [address] Carrington Calderon MD 1 [facility] Level 1 [place] [phone] Type 2 diabetes mellitus with hyperosmolarity without coma, with long-term current use of insulin ([facility]) ([facility]) (Primary Dx); Anxiety; Chronic midline low back pain without sciatica; Anxiety and depression; Gastroparesis; Diabetic polyneuropathy associated with type 2 diabetes mellitus ([facility]) (HCC); Mid back pain Social History Tobacco [...] emergency department For the diabetes -Down the [employer] rena -If you have trouble using this [...] long-term current use of insulin (HCC-CMS) ([facility]): By description, it sounds like glucose is responding well to the changes that were made last year. However, she does not have her freestyle mitul readings available today, and we do not have a recent A1c. I recommended getting an A1c as soon as she is able. I have sent an order to [place]. - HEMOGLOBIN A1C Anxiety: Continue lorazepam for [...] of the lumbar spine. Order sent to [place]. - XR LUMBAR SPINE 2-3 VIEWS Anxiety [...] associated with type 2 diabetes mellitus (HCC-CMS) ([facility]): Symptoms persist.Continue gabapentin. - gabapentin (NEURONTIN) 300 [...] was seen in the emergency department in [place] for recurrence ofintractable nausea and vomiting with [...] [facility] Adult Primary Care - [address] [phone] Carrington Calderon MD [address] [phone] 02/27/2024 8:30 EDT Telemedicine [facility] Sleep Program - [address] 141591 Dwight Colbert [address] [place] [address] [phone] 02/29/2024 10:30 EDT Appointment [facility] Radiology Nuclear Medicine and PET - [address] [phone] 02/29/2024 14:30 EDT Appointment [facility] Radiology Nuclear Medicine and PET [address] [phone] 03/01/2024 8:00 EDT Appointment [facility] Radiology Nuclear Medicine and PET - [address] [phone] 03/01/2024 9:30 EDT Appointment [facility] Radiology Nuclear Medicine and PET [address] [address] documented as of this encounter Visit Diagnoses Diagnosis Type 2 diabetes mellitus with hyperosmolarity without coma, with long-term current use of insulin ([facility])- Primary Anxiety Anxiety state, unspecified Chronic midline low back pain without sciatica Anxiety and depression Dysthymic disorder Gastroparesis Diabetic polyneuropathy associated with type 2 diabetes mellitus ([facility]) Mid back pain Backache, unspecified documented in [...] 06/11/2021 added in this encounter Care Teams Elevated Work Platform Operator Relationship Specialty Start Date End Date Carrington Calderon MD 1 [facility] Level 1 [place] [address] PCP - General Internal Medicine - Primary Care 12/09/20 documented as of this encounter
--- OUTSIDE RECORDS SUMMARY | 2024-01-02 06:12 | XMS_ITS | Encounter Summary ---
Author Organization [facility] Address [address] [place] [address] Care Team Providers Care Colorman Name Role Phone Carrington Calderon MD Primary Care Provi anders Reason for Visit * Reason Onset Date Comments Emesis 11/16/2021 24 hours- vomitt ing/ toe infection Encounter Details Date Type Department Care Team (Late st Contact Info) Description 11/16/2021 Telephone [facility] Adult Primary Care - [address] [phone] Carrington Calderon MD 1 [facility] Level 1 [place] [address] Emesis (24 hours- vomitting/ toe [...] going home to take her to the [facility] ED. Let him know that PCP's last OV note stated that pt should be seen in an OV if vomiting for more than 24 hours. He reports they would like a referral to the foot Dr, normally goes to [facility]. (Looks like pt missed OV.)They will [...] last seen 06/11/21. Also missed OV at [facility]. * Telephone Encounter - Olive Munguia [...] Visit [facility] Adult Primary Care - [address] [phone] Carrington Calderon MD [address] [place] [address] 1 [place] [phone] 02/27/2024 8:30 EDT Telemedicine [facility] Sleep Program - [address] 523541 Dwight Colbert [address] [place], [place] [address] 02/29/2024 10:30 EDT Appointment [facility] Radiology Nuclear Medicine and PET - [address] [phone] 02/29/2024 14:30 EDT Appointment [facility] Radiology Nuclear Medicine and PET - [address] [phone] 03/01/2024 8:00 EDT Appointment [facility] Radiology Nuclear Medicine and PET - [address] [phone] 03/01/2024 9:30 EDT Appointment [facility] Radiology Nuclear Medicine and PET [address] 549011 documented as of this encounter Visit Diagnoses Not on filedocumented in this encounter Care Teams Colorman Relationship Specialty Start Date End Date Carrington Calderon MD 1 [facility] Level 1 [place] [address] PCP - General Internal Medicine - Primary Care 12/09/20 documented as of this encounter
--- OUTSIDE RECORDS SUMMARY | 2024-01-02 06:12 | XMS_ITS | Encounter Summary ---
Author Organization [facility] Address [address] [place] [address] Care Team Providers Care All Around Patternmaker Name Role Phone Carrington Calderon MD Primary Care Provi anders Reason for Visit * Reason Comments Nutrition Counseling * Consult (See Order Priority) - Order Cancelled Specialty Diagnoses / Procedures Referred By Contact Referred To Contact Nutrition / Gastroenterology and Hepatology Diagnoses Gastroparesis Scott Arzate MD 111 [facility] Level [address] [place] [address] [facility] M[address] Gi [address] [place] [address] Referral ID Status Reason Start Date Expiration Date Visits Requested Visits Authorized [id number] Order Cancelled Specialty Services Required 10/09/2021 1 1 Encounter Details Date Type Department Care Team (Late st Contact Info) Description 10/14/2021 11:00 EDT Nutrition [facility] Gastroenterology - [facility] [address], [place] [id number] [address]ita [address] [place] [address] Gastroparesis; Type 2 diabetes mellitus with diabetic polyneuropathy, with long-term current use of insulin ([facility]) ([facility]) Social History Tobacco Use Types Packs/Day Years [...] as of this encounter Progress Notes * Saivta Curtis RD - 10/14/2021 1100 EDT Nutrition Services Medical Nutrition Therapy Initial Nutrition Assessment SUBJECTIVE: Cristy Luo is 36 y.o. female here for medical nutrition therapy for diabetes (insulin requiring), and gastroparesis. Recently moved to [place], [place]. Reports frequent nausea, early satiety. Has [...] Home Patient location state: [place] Location State: [place] [...] glucose test strips ??? flash glucose sensor (IkroSTYLE FLORA 2 SENSOR) kit ??? gabapentin (NEURONTIN) [...] My Chart, and web resources for gastroparesis ([employer]) Stella has recently moved to [place], and is in the process of establishing a PCP and pull over. Encouraged obtaining new meter for closer monitoring of blood glucose levels. Encouraged activity/movement on a daily basis, especially after eating. PLAN: Nutrition Recommendations and Goals: 1. Diet for gastroparesis- lower fat, modified textures to soft/blended, modified high fiber foods 2. Continue to follow diet guidelines for DM, re-establish care w/ pull over, perhaps at Exercise/Activity Recommendations: exercise/activity as tolerated Educational materials provided: Diet for Gastroparesis Method: Handout and Verbal Taught to: Patient Barriers: None Outcomes: verbalized understanding I spent a total of 45 minutes with Cristy Luo today and 40 minutes of that time was spent incounseling and coordination of care as described in the progress note. Savita Curtis RD [phone] documented in this encounter Plan of Treatment Upcoming Encounters Date Type Department Care Team (Late st Contact Info) Description 02/21/2024 9:45 EDT Office Visit [facility] Adult Primary Care - [address] [phone] Carrington Calderon MD [address] [phone] 02/27/2024 8:30 EDT Telemedicine [facility] Sleep Program - [address] [address] Dwight Colbert [address] [place] [address] [phone] 02/29/2024 10:30 EDT Appointment [facility] Radiology Nuclear Medicine and PET - [address] [id number] 02/29/2024 14:30 EDT Appointment [facility] Radiology Nuclear Medicine and PET [address] 102151 03/01/2024 8:00 EDT Appointment [facility] Radiology Nuclear Medicine and PET [address] 132791 03/01/2024 9:30 EDT Appointment [facility] Radiology Nuclear Medicine and PET - [address] [phone] documented as of this encounter Visit Diagnoses Diagnosis Gastroparesis Type 2 diabetes mellitus with diabetic polyneuropathy, with long-term current use of insulin ([facility]) documented in this encounter Care Teams All Around Patternmaker Relationship Specialty Start Date End Date Carrington Calderon MD 1 [facility] Level 1 [place] [address] PCP - General Internal Medicine - Primary Care 12/09/20 documented as of this encounter
--- OUTSIDE RECORDS SUMMARY | 2024-01-02 06:12 | XMS_ITS | Encounter Summary ---
Author Organization [facility] Address [address] [place] [address] Care Team Providers Care Lump Inspector Name Role Phone Carrington Calderon MD Primary Care Provi anders Reason for Visit * Reason Onset Date Comments Medications Refill 11/30/2021 Encounter Details Date Type Department Care Team (Late st Contact Info) Description 11/30/2021 Refill [facility] Adult Primary Care [address] 968441 Carrington Calderon MD 1 [facility] Level 1 [place] [address] Medications Refill Social History Tobacco [...] Visit [facility] Adult Primary Care - [address] 505301 Carrington Calderon MD [address] [phone] 02/27/2024 8:30 EDT Telemedicine [facility] Sleep Program - [address] 265171 Dwight Colbert [address] [place] [address] [phone] 02/29/2024 10:30 EDT Appointment [facility] Radiology Nuclear Medicine and PET - [address] [phone] 02/29/2024 14:30 EDT Appointment [facility] Radiology Nuclear Medicine and PET - [address] [address] 03/01/2024 8:00 EDT Appointment [facility] Radiology Nuclear Medicine and PET - [address] [address] 03/01/2024 9:30 EDT Appointment [facility] Radiology Nuclear Medicine and PET - [address] [address] documented as of this encounter Visit Diagnoses Not on filedocumented in this encounter Care Teams Lump Inspector Relationship Specialty Start Date End Date Carrington Calderon MD 1 [facility] 1 [place] [address] PCP - General Internal Medicine - Primary Care 12/09/20 documented as of this encounter
--- OUTSIDE RECORDS SUMMARY | 2024-01-02 06:12 | XMS_ITS | Encounter Summary ---
Author Organization [facility] Address [address] [place] [address] Care Team Providers Care Whizzer Operator Name Role Phone Carrington Calderon MD Primary Care Provi anders Reason for Referral * Consult (See Order Priority) - Specialty Report Received Specialty Diagnoses / Procedures Referred By Kit goode Referred To Contact Endocrinology Diagnoses Type 2 diabetes mellitus with diabetic polyneuropathy, with long-term current use of insulin ([facility]) Carrington Calderon MD [address] [place] [phone] [facility] Endocrinology [address] [place] [address] Referral ID Status Reason Start Date Expiration Date Visits Requested Visits Authorized [id number] Specialty Report Received Specialty Services Required 01/29/2022 1 1 Question Answer Reason for Request: uncontrolled diabetes Reason for Visit * Reason Comments Medication Management Follow-up Encounter Details Date Type Department Care Team ([facility] st Contact Info) Description 01/29/2022 11:00 EDT Telemedicine [facility] Adult Primary Care - [address] [address] Carrington Calderon MD [address] [phone] Gastroparesis (Primary Dx); Tobacco use; Type 2 diabetes mellitus with diabetic polyneuropathy, with long-term current use of insulin ([facility]) (HCC); Chronic midline low back pain without [...] polyneuropathy, with long-term current use of insulin ([facility]) Inject 1 Kit into the [...] polyneuropathy, with long-term current use of insulin ([facility]) ([facility]): Diabetes remains uncontrolled per her most recent A1C of 9.7. According to her description, I am concerned that an increase in her Lantus dose could lead to dangerous hypoglycemia. I asked that she post her freestyle mitul data on [employer] for my review. She states that she [...] system when she attempted to go at [facility]. I have asked my staff to follow-up [...] symptoms. She was seen in September in [facility] emergency department for diabetic foot infection. She [...] was infected. She was referred to a retail sales director up in the [facility] and was treated with topical and oral [...] [facility] [address] [phone] Carrington Calderon MD [address] [phone] 02/27/2024 8:30 EDT Telemedicine [facility] Sleep Program - [address] [phone] Dwight Colbert [address] [place] [address] [phone] 02/29/2024 10:30 EDT [facility]ointment [facility] Radiology Nuclear Medicine and PET - [address] [phone] 02/29/2024 14:30 EDT Appointment [facility] Radiology Nuclear Medicine and PET [address] [address] 03/01/2024 8:00 EDT Appointment [facility] Radiology Nuclear Medicine and PET [address] [address] 03/01/2024 9:30 EDT Appointment [facility] Radiology Nuclear Medicine and PET [address] [address] Scheduled Referrals Name Type Priority Associated Diagnoses Order Schedule AMB CONS/FOLLOW UP ENDOCRINOLOGY Outpatient Referral Routine/Next Available Type 2 diabetes mellitus with diabetic polyneuropathy, with long-term current use of insulin ([facility]) ([facility]) Expected: 02/05/2022 (Approximate), Expires: 01/29/2023 documented as of this encounter Visit Diagnoses Diagnosis Gastroparesis- Primary Tobacco use Tobacco use disorder Type 2 diabetes mellitus with diabetic polyneuropathy, with long-term current use of insulin ([facility]) Chronic midline low back pain without sciatica [...] documented as of this encounter Care Teams Whizzer Operator Relationship Specialty Start Date End Date Carrington Calderon MD 1 [facility] 1 [place] [address] PCP - General Internal Medicine - Primary Care 12/09/20 documented as of this encounter
--- OUTSIDE RECORDS SUMMARY | 2024-01-02 06:12 | XMS_ITS | Encounter Summary ---
Author Organization [facility] Address [address] [place] [address] Care Team Providers Care Legal Recruiter Name Role Phone Carrington Calderon MD Primary Care Provi anders Reason for Visit * Reason Comments New Patient Visit Gastroparesis * Consult (Routine/Next Available) - Order Cancelled Specialty Diagnoses / Procedures Referred By Contact Referred To Contact Gastroenterology and Hepatology Diagnoses Gastroparesis Carrington Calderon MD [address] [place] [phone] [facility] Mp[address] Gi [address] [place] [address] Referral ID Status Reason Start Date Expiration Date Visits Requested Visits Authorized [id number] Order Cancelled Specialty Services Required 06/11/2021 1 1 Encounter Details Date Type Department Care Team (Late st Contact Info) Description 10/09/2021 11:20 EDT Office Visit [facility] Gastroenterology - [facility] [address] [place], [place] [phone] Scott Arzate MD 111 [facility] 5 [place] [address] Gastroparesis (Primary Dx) Social History [...] [facility] Adult Primary Care - [address] [phone] Carrington Calderon MD [address] [phone] 02/27/2024 8:30 EDT Telemedicine [facility] Sleep Program - [address] [phone] Dwight Colbert [address] [place] [phone] 02/29/2024 10:30 EDT Appointment [facility] Radiology Nuclear Medicine and PET - [address] [id number] 02/29/2024 14:30 EDT Appointment [facility] Radiology Nuclear Medicine and PET - [address] 347151 03/01/2024 8:00 EDT Appointment [facility] Radiology Nuclear Medicine and PET - [address] 913061 03/01/2024 9:30 EDT Appointment [facility] Radiology Nuclear Medicine and PET - [address] [address] documented as of this encounter Visit Diagnoses Diagnosis Gastroparesis- Primary documented in this encounter Care Teams Legal Recruiter Relationship Specialty Start Date End Date Carrington Calderon MD 1 [facility] 1 [place] [phone] PCP - General Internal Medicine - Primary Care 12/09/20 documented as of this encounter
--- OUTSIDE RECORDS SUMMARY | 2024-01-02 06:12 | XMS_ITS | Encounter Summary ---
Author Organization [facility] Address [address] [place] [address] Care Team Providers Care Director Appointment Name Role Phone Carrington Calderon MD Primary Care Provi anders Reason for Visit * Reason Comments Other Encounter Details Date Type Department Care Team (Late st Contact Info) Description 03/16/2021 [facility] Adult Primary Care [facility] 1 [place], [place] [address]481 Carrington Calderon MD 1 [facility] Level 1 [place] [address] Other Social History Tobacco Use [...] [facility] Adult Primary Care - [address] [phone] Carrington Calderon MD [address] [facility] 1 [place] [phone] 02/27/2024 8:30 EDT Telemedicine [facility] Sleep Program - [address] [address] Dwight Colbert [address] [place] [address] [phone] 02/29/2024 10:30 EDT [facility] Radiology Nuclear Medicine and PET - [address] [phone] 02/29/2024 14:30 EDT [facility] Radiology Nuclear Medicine and PET - [address] 944991 03/01/2024 8:00 EDT [facility]ointment [facility] Radiology Nuclear Medicine and PET - [address] 105611 03/01/2024 9:30 EDT Appointment [facility] Radiology Nuclear Medicine and PET [address] [phone] documented as of this encounter Visit Diagnoses Not on filedocumented in this encounter Care Teams Director Appointment Relationship Specialty Start Date End Date Carrington Calderon MD [address] [facility] 1 [place] [address] PCP - General Internal Medicine - Primary Care 12/09/20 documented as of this encounter
--- OUTSIDE RECORDS SUMMARY | 2024-01-02 06:12 | XMS_ITS | Encounter Summary ---
Author Organization [facility] Address [address] [place] [address] Care Team Providers Care Industrial Hygienist Name Role Phone Carrington Calderon MD Primary Care Provi anders BreAlvaradodi Unavailable Carmelo Hendrickson Unavailable Unavailable Encounter Details Date Type Department Care Team (Late st Contact Info) Description 01/26/2022 Orders Only [facility] Adult Primary Care - [place] 1 [place] [address] Carrington Calderon MD 1 [facility] Level 1 [place] [address] Type 2 diabetes mellitus with diabetic polyneuropathy, with long-term current use of insulin ([facility]) ([facility]) (Primary Dx) Social History Tobacco Use Types [...] [facility] - [address] 849651 Carrington Calderon MD [address] [phone] 02/27/2024 8:30 EDT Telemedicine [facility] Sleep Program - [address] [address] Dwight Colbert [address] [place] [address] [phone] 02/29/2024 10:30 EDT Appointment [facility] Radiology Nuclear Medicine and PET [address] 288451 02/29/2024 14:30 EDT Appointment [facility] Radiology Nuclear Medicine and [address] 877671 03/01/2024 8:00 EDT Appointment [facility] Radiology Nuclear Medicine and PET [address] 962122 03/01/2024 9:30 EDT Appointment [facility] Radiology Nuclear Medicine and PET - [address] [address] documented as of this encounter Visit Diagnoses Diagnosis Type 2 diabetes mellitus with diabetic polyneuropathy, with long-term current use of insulin ([facility])- Primary documented in this encounter Care Teams Industrial Hygienist Relationship Specialty Start Date End Date Carrington Calderon MD 1 [facility] 1 [place] [address] PCP - General Internal Medicine - Primary Care 12/09/20 [employer]ail [employer] Year Nanny 04/21/23 Carmelo Hendrickson Coordinator 12/01/23 documented as of this encounter
--- OUTSIDE RECORDS SUMMARY | 2024-01-02 06:12 | XMS_ITS | Encounter Summary ---
Author Organization [facility] Address [address] [place] [address] Care Team Providers Care Hydrologic Engineer Name Role Phone Carrington Calderon MD [...] 20:55 EDT - 01/26/2021 1:16 EDT Emergency [facility] Emergency Department - [address] [phone] Mark Thibodeaux PA-C [address] [place] [phone] Siobhan Hare PA-C [address] [place] [phone] Non-intractable vomiting with nausea, unspecified vomiting [...] through Care Everywhere. * Nausea and Vomiting (Andorran) documented in this encounter Medications at Time [...] 2 READER) misc 1 Device by [facility] (non-drug; combo route) route continuous. 1 Each 10/01/2020 05/21/2022 flash glucose sensor (FREESTYLE VIGNESH 2 SENSOR) kit 1 Device by [facility] (non-drug; combo route) route continuous. 6 Kit [...] Code Departure Means Destination Home or Self Snf documented in this encounter ED Notes * [facility] - [address] [phone] Carrington Calderon MD [address] [phone] 02/27/2024 8:30 EDT Telemedicine [facility] Sleep Program - [address] [address] Dwight Colbert [address] [place] [address] [phone] 02/29/2024 10:30 EDT Appointment [facility] Radiology Nuclear Medicine and PET - [address] [phone] 02/29/2024 14:30 EDT Appointment [facility] Radiology Nuclear Medicine and PET - [address] 184321 03/01/2024 8:00 EDT Appointment [facility] Radiology Nuclear Medicine and PET - [address] [phone] 03/01/2024 9:30 EDT Appointment [facility] Radiology Nuclear Medicine and PET - [address] [address] documented as of this encounter Procedures Procedure [...] EDT) 02/17/2021 18:1 8 EDT Scan 2 Belting Cutter PROCEDURE/MINOR BRAULIO GICAL ORDERABLES * (ABNORMAL) POCT URINE DIPSTICK, CLINITEK (01/26/2021 0:21 EDT) Color, UA Yellow Yellow 01/26/2021 0:23 EDT [facility] Clarity, UA Clear Clear 01/26/2021 0:23 EDT [facility] Glucose, UA 2+(A) Negative mg/dL 01/26/2021 0:23 T [facility] Bilirubin, UA Negative Negative 01/26/2021 0:23 T [facility] Ketones, UA 4+(AA) Negative mg/dL 01/26/2021 0:23 EDT [facility] Specific [place], Urine >=1.030 1.001 - 1.035 01/26/2021 0:23 EDT [facility] Blood, UA Negative Negative 01/26/2021 0:23 [facility] pH, UA 6.0 <=8 01/26/2021 0:23 [facility] Protein, UA Negative Negative mg/dL 01/26/2021 0:23 [facility] Urobilinogen, UA 0.2 0.2 - 1.0 EU/dL 01/26/2021 0:23 [facility] Nitrite, UA Negative Negative 01/26/2021 0:23 [facility] Leuk Esterase Negative Negative 01/26/2021 0:23 [facility] HN LAB COMMENT (CLINITEK, UR) Test performed at Emergency Department 01/26/2021 0:23 [facility] Urine URINE SPECIMEN COLLECTION, CLEAN CATCH / Unknown 01/26/2021 0:21 EDT 01/26/2021 0:23 EDT Mark Thibodeaux PA-C POINT OF CARE TEST O RDERABLES [facility] [address] [place] [address] * POCT TEST, CLINITEK (01/26/2021 0:16 EDT) UPT Result Negative Negative 01/26/2021 0:23 EDT [facility] HN LAB COMMENT (CLINITEK, UPT) Test performed at Emergency Department 01/26/2021 0:23 EDT [facility] Comment:False negative resul ts may occur in women who are beyond 5-8 weeks gestation. Diagnosis of should be based on a correlation of test results with typical clinical signs and symptoms. Urine URINE SPECIMEN COLLECTION, CLEAN CATCH / Unknown 01/26/2021 0:16 EDT 01/26/2021 0:23 EDT Mark Thibodeaux PA-C POINT OF CARE TEST O RDERABLES Performing Organization Address [facility] de Phone Number [facility] [address] [place] [phone] * POCT CSN BARCODE URINE PREG TEST (01/26/2021 0:01 EDT) Urine URINE SPECIMEN COLLECTION, CLEAN CATCH / Unknown Urine Collect / Unknown 01/26/2021 0:01 EDT 01/26/2021 0:01 EDT Mark Thibodeaux PA-C LAB INFO SERVICE AND SUPPORT & PHONE RESULT Performing Organization Address [facility] de Phone Number [facility] [address] [place] [phone] * POCT CSN BARCODE URINE DIPSTICK (01/26/2021 0:01 EDT) Urine URINE SPECIMEN COLLECTION, CLEAN CATCH / Unknown Urine Collect / Unknown 01/26/2021 0:01 EDT 01/26/2021 0:01 EDT Mark Thibodeaux PA-C LAB INFO SERVICE AND SUPPORT & PHONE RESULT Performing Organization Address [facility] de Phone Number [facility] [address] [place] [phone] * (ABNORMAL) BETA HYDROXYBUTYRATE (01/25/2021 21:55 EDT) Beta Hydroxybutyrate 2.2(H) <0.4 mmol/L 01/25/2021 22:23 EDT [facility] Blood VENOUS BLOOD / Unknown Venipuncture / Unknown 01/25/2021 21:55 EDT 01/25/2021 21:57 EDT Mark Thibodeaux PA-C CHEMISTRY & BLOOD GA S ORDERABLES Performing Organization Address City/[facility]/ZIP Co de Phone Number [facility] [address] [place] [address] * (ABNORMAL) BASIC METABOLIC PANEL (BMP) (01/25/2021 21:55 EDT) Sodium 139 136 - 145 mmol/L 01/25/2021 22:18 EDT [facility] Potassium 3.7 3.5 - 5.0 mEq/L 01/25/2021 22:18 EDT [facility] Chloride 103 96 - 110 mEq/L 01/25/2021 22:18 [facility] CO2 Total 22 22 - 32 mEq/L 01/25/2021 22:18 [facility] Glucose 246(H) 70 - 100 mg/dL 01/25/2021 22:18 [facility] Calcium 8.8 8.5 - 10.5 mg/dL 01/25/2021 22:18 [facility] Calculated Calcium 8.9 8.5 - 10.5 mg/dL 01/25/2021 22:18 [facility] BUN 11 10 - 26 mg/dL 01/25/2021 22:18 [facility] Creatinine 0.48(L) 0.52 - 1.04 mg/dL 01/25/2021 22:18 [facility] eGFR 127 >60 mL/min/1.7 3m2 01/25/2021 22:18 [facility] Comment:eGFR calculated gil curtis CKD-EPI equation for non- Americans. Multiply eGFR by 1.16 for patients. Blood VENOUS BLOOD / Unknown Venipuncture / Unknown 01/25/2021 21:55 EDT 01/25/2021 21:57 EDT Mark Thibodeaux PA-C CHEMISTRY & BLOOD ME S ORDERABLES Performing Organization Address City/[facility]/ZIP Co de Phone Number [facility] [address] [place] [address] * EKG 12-LEAD (01/25/2021 21:12 EDT) 01/25/2021 21:1 2 EDT [facility] EKG - 02/17/2021 18:13 EDT ?[facility] Emergency ? Test Date: ?2021-01-25 Pat Name: ? CRISTY LUO ?Department: ?? ED ? Room: ? WB05 Gender: ? Female ? Piano Case Maker: ?? : ?1985 ? Requested By: ANA Forman Order Number: [id number] ? Reading MD: ?? AGA JOHNGLIN MD ? Measurements Intervals ?[place] ? Rate: ? 66 ? P: ?74 [place]: ? 136 ?QRS: ?5 QRSD: ? 98 [...] Note Aga Fairchild MD - 02/17/2021 [facility] Emergency Test Date: 2021-01-25 Pat Name: CRISTY LUO Department: ED Room: [facility] Gender: Female Piano Case Maker: : 1985 Requested By: ANA Forman Order Number: [id number] Sammie MD: AGA FAIRCHILD MD Measurements Intervals [place] Rate: 66 P: 74 [place]: 136 QRS: 5 QRSD: 98 T: -4 [...] Mark Thibodeaux PA-C CARDIAC ECG ORDERABL ES [facility] E[facility] documented in this encounter Visit Diagnoses [...] 2315 2340 (Not Given - Provider: Nanda Gibson RN - Reason: Patient/family refused) diphenhydrAMINE (BENADRYL) injection 12.5 mg (COMPLETED) 12.5 mg, intravenous, NOW X1, 1 dose, On 01/25/21 at 2145, STAT 2200 (Given - Provider: Mignon Young, MARCELO) lactated ringers BOLUS 1,000 mL (COMPLETED) 1,000 mL, intravenous, NOW X1, 1 dose, On 01/25/21 at 2145, STAT 2200 (New Bag - Provider: Mignon Young RN)2339 (Completed - Provider: Nanda Gibson, MARCELO) metoclopramide (REGLAN) injection 10 mg (COMPLETED) 10 mg, intravenous, NOW X1, 1 dose, On 01/25/21 at 2145, STAT 2200 (Given - Provider: Mignon Young, MARCELO) ondansetron (PF) (ZOFRAN) injection 4 mg (COMPLETED) 4 mg, intravenous, NOW X1, 1 dose, On 01/25/21 at 2315, STAT 2340 (Given - Provider: Wan Gibson RN) documented in this encounter Orders Medications Ordered That Stan ht Not Have Been Administered Count Last Ordered Date First Ordered Date capsaicin (CAPZASIN-HP) 0.1 % cream 1 01/25 documented in this encounter Care Teams Hydrologic Engineer Relationship Specialty Start Date End Date Carrington Calderon MD 1 [facility] 1 [place] [phone] PCP - General Internal Medicine - Primary Care 12/09/20 documented as of this encounter
--- OUTSIDE RECORDS SUMMARY | 2024-01-02 06:12 | XMS_ITS | Encounter Summary ---
Author Organization [facility] Address [address] [place] [address] Care Team Providers Care Nut Roaster Name Role Phone Carrington Calderon MD Primary Care Provi anders Reason for Visit * Reason Comments Other Encounter Details Date Type Department Care Team (Late st Contact Info) Description 09/13/2021 [facility] Adult Primary Care [facility] 1 [place], [place] [phone] Carrington Calderon MD 1 [facility] Level 1 [place] [address] Other Social History Tobacco Use [...] Encounter - Eryn Pack RN - 09/14/2021 0981 EDT traMADol (ULTRAM) 50 mg tablet [[id number]] ?? Order Details Dose, Route, Frequency: As [...] [facility] Adult Primary Care - [address] 665301 Carrington Calderon MD [address] [phone] 02/27/2024 8:30 EDT Telemedicine [facility] Sleep Program - [address] [phone] Dwight Colbert [address] [place] [phone] 02/29/2024 10:[address] [facility] Radiology Nuclear Medicine and PET [address] [phone] 02/29/2024 14:[address] [facility] Radiology Nuclear Medicine and PET [address] [phone] 03/01/2024 8:[address] [facility] Radiology Nuclear Medicine and PET [address] [phone] 03/01/2024 9:[address] [facility] Radiology Nuclear Medicine and PET [address] [phone] documented as of this encounter Visit Diagnoses Not on filedocumented in this encounter Discontinued Medications Medication Sig Discontinue Reason Start Date End Da te traMADol (ULTRAM) 50 mg tablet TAKE 1 TABLET BY MOUTH EVERY 6 HOURS NEEDED FOR PAIN, DAILY MAX: 200MG 08/25/2021 09/20/2021 documented as of this encounter Care Teams Nut Roaster Relationship Specialty Start Date End Date Carrington Calderon MD 1 [facility] Level [address] [place] [phone] PCP - General Internal Medicine - Primary Care 12/09/20 documented as of this encounter
--- OUTSIDE RECORDS SUMMARY | 2024-01-02 06:12 | XMS_ITS | Encounter Summary ---
Author Organization [facility] Address [address] [place] [address] Care Team Providers Care Finger Waver Name Role Phone Carrington Calderon MD Primary Care Provi anders Reason for Visit * Reason Onset Date Comments No Show 02/18/2021 Encounter Details Date Type Department Care Team (Late st Contact Info) Description 02/18/2021 Telephone [facility] Adult Primary Care - [address] [phone] Carrington Calderon MD 1 [facility] Level 1 [place] [phone] No Show Social History Tobacco [...] [facility] Adult Primary Care - [address] [phone] Carrington Calderon MD [address] [place] [phone] 02/27/2024 8:30 EDT Telemedicine [facility] Sleep Program - [address] [phone] Dwight Colbert [address] [place] [address] [phone] 02/29/2024 10:30 EDT Appointment [facility] Radiology Nuclear Medicine and PET - [address] 440261 02/29/2024 14:30 EDT Appointment [facility] Radiology Nuclear Medicine and PET [address] [phone] 03/01/2024 8:00 EDT Appointment [facility] Radiology Nuclear Medicine and PET [address] [phone] 03/01/2024 9:30 EDT Appointment [facility] Radiology Nuclear Medicine and PET [address] [phone] documented as of this encounter Visit Diagnoses Not on filedocumented in this encounter Care Teams Finger Waver Relationship Specialty Start Date End Date Carrington Calderon MD [address] [place] [phone] PCP - General Internal Medicine - Primary Care 12/09/20 documented as of this encounter
--- OUTSIDE RECORDS SUMMARY | 2024-01-02 06:12 | XMS_ITS | Encounter Summary ---
Author Organization [facility] Address [address] [place] [address] Care Team Providers Care J2Ee Engineer Name Role Phone Carrington Calderon MD Primary Care Provi anders Abigail Díaz Unavailable [phone] Carmelo Hendrickson Unavailable Unavailable Reason for Visit * Reason Onset Date Comments Appointment Related 04/06/2021 Appointment reminder Encounter Details Date Type Department Care Team (Late st Contact Info) Description 04/06/2021 Telephone [facility] General Surgery - [facility] [address] [place], [place] [phone] Britta Cox, LIVING MANAGER 111 [facility], Level [address] [place] [address] Appointment Related (Appointment reminder ) [...] Office Visit [facility] Adult Primary Care [address] [phone] Carrington Calderon MD [address] [phone] 02/27/2024 8:30 EDT Telemedicine [facility] Sleep Program - [address] [address] Dwight Colbert [address] [place] [phone] 02/29/2024 10:30 EDT Appointment [facility] Radiology Nuclear Medicine and PET [address] [phone] 02/29/2024 14:30 EDT Appointment [facility] Radiology Nuclear Medicine and PET [address] [address] 03/01/2024 8:00 EDT Appointment [facility] Radiology Nuclear Medicine and PET [address] [phone] 03/01/2024 9:30 EDT Appointment [facility] Radiology Nuclear Medicine and PET [address] [phone] documented as of this encounter Visit Diagnoses Not on filedocumented in this encounter Care Teams J2Ee Engineer Relationship Specialty Start Date End Date Carrington Calderon MD [address] [place] [phone] PCP - General Internal Medicine - Primary Care 12/09/20 Abigail Díaz Hearing Impaired Teacher 04/21/23 Carmelo Hendrickson Coordinator 12/01/23 documented as of this encounter
--- OUTSIDE RECORDS SUMMARY | 2024-01-02 06:13 | XMS_ITS | Encounter Summary ---
Author Organization [facility] Address [address] [place] [address] Care Team Providers Care Adviser Sales Name Role Phone Carrington Calderon MD Primary Care Provi anders Abigail Díaz Unavailable Carmelo Hendrickson Unavailable Unavailable Reason for Visit * Reason Onset Date Comments Medications Refill 12/31/2020 Encounter Details Date Type Department Care Team (Late st Contact Info) Description 12/31/2020 Refill [facility] Adult Primary Care - [address] [phone] Carrington Calderon MD 1 [facility] Level 1 [place] [phone] Medications Refill Social History Tobacco Use Types [...] [facility] - [address] [phone] Carrington Calderon MD [address] [phone] 02/27/2024 8:30 EDT Telemedicine [facility] Sleep Program - [address] 442181 Dwight Colbert [address] [place] [phone] 02/29/2024 10:30 EDT Appointment [facility] Radiology Nuclear Medicine and [address] [phone] 02/29/2024 14:30 EDT Appointment [facility] Radiology Nuclear Medicine and PET [address] [phone] 03/01/2024 8:00 EDT Appointment [facility] Radiology Nuclear Medicine and [address] [phone] 03/01/2024 9:30 EDT Appointment [facility] Radiology Nuclear Medicine and PET [address] [phone] documented as of this encounter Visit Diagnoses Not on filedocumented in this encounter Discontinued Medications Medication Sig Discontinue Reason Start Date End Da te LORazepam (ATIVAN) 0.5 mg tablet Take 1 Tablet by mouth 3 times daily as needed for up to 14 days for Anxiety. Daily Max: 1.5 mg Reorder 12/05/2020 12/31/2020 documented as of this encounter Care Teams Adviser Sales Relationship Specialty Start Date End Date Carrington Calderon MD [address] [facility] 1 [place] [phone] PCP - General Internal Medicine - Primary Care 12/09/20 Abigail Díaz Digital Sales Executive 04/21/23 Carmelo Hendrickson Coordinator 12/01/23 documented as of this encounter
--- OUTSIDE RECORDS SUMMARY | 2024-01-02 06:13 | XMS_ITS | Encounter Summary ---
Author Organization [facility] Address [address] [place] [address] Care Team Providers Care Business Writer Name Role Phone Unavailable Primary Care Provider [...] Info) Description 02/21/2024 9:45 EDT Office Visit [facility] Adult Primary Care - [address] [phone] Carrington Calderon MD [address] [phone] 02/27/2024 8:30 EDT Telemedicine [facility] Sleep Program - [address] 35[address] Dwight Colbert [address] [place] [phone] 02/29/2024 10:30 EDT Appointment [facility] Radiology Nuclear Medicine and PET - [address] 110671 02/29/2024 14:30 EDT Appointment [facility] Radiology Nuclear Medicine and PET - [address] [address] 03/01/2024 8:00 EDT [facility] Radiology Nuclear Medicine and PET - [address] [address] 03/01/2024 9:30 EDT [facility] Radiology Nuclear Medicine and PET - [address] [address] documented as of this encounter Visit Diagnoses Not on filedocumented in this encounter
--- OUTSIDE RECORDS SUMMARY | 2024-01-02 06:13 | XMS_ITS | Encounter Summary ---
Author Organization [facility] Address [address] [place] [address] Care Team Providers Care Detail Technician Name Role Phone Unavailable Primary Care Provider Unavailabl e Reason for Visit * Reason Onset Date Comments Medication Questions 10/22/2020 Encounter Details Date Type Department Care Team (Late st Contact Info) Description 10/22/2020 Telephone [facility] Adult Primary Care - [address] [phone] Tonja Alejandro PA-C [address] [place] [address] [place] [phone] Medication Questions Social History Tobacco Use [...] Telephone Encounter - Kamini Whittaker - 10/22/2020 6040 EDT Call to pharmacy to clarify the [...] [facility] Adult Primary Care - [address] [phone] Carrington Calderon MD 1 [facility] Level 1 [place] [phone] 02/27/2024 8:30 EDT Telemedicine [facility] Sleep Program - [address] [place] [address] [place] [address] [address]ight Colbert [address] [place] [address] 02/29/2024 10:30 EDT Appointment [facility] Radiology Nuclear Medicine and PET - [address] [address] 02/29/2024 14:30 EDT Appointment [facility] Radiology Nuclear Medicine and PET - [address] [address] 03/01/2024 8:00 EDT Appointment [facility] Radiology Nuclear Medicine and PET [address] [phone] 03/01/2024 9:30 EDT Appointment [facility] Radiology Nuclear Medicine and PET [address] [address] documented as of this encounter Visit Diagnoses Not on filedocumented in this encounter Discontinued Medications Medication Sig Discontinue Reason Start Date End Da te gabapentin (NEURONTIN) 300 mg capsule Take 1 Cap by mouth 3 times daily. Reorder 08/01/2020 10/22/2020 documented as of this encounter
--- OUTSIDE RECORDS SUMMARY | 2024-01-02 06:13 | XMS_ITS | Encounter Summary ---
Author Organization [facility] Address [address] [place] [address] Care Team Providers Care Safety Representative Name Role Phone Unavailable Primary Care Provider Unavailabl e Reason for Visit * Reason Onset Date Comments Medication Problem 10/06/2020 Encounter Details Date Type Department Care Team (Late st Contact Info) Description 10/06/2020 Telephone [facility] Adult Primary Care - [address] [phone] Tonja Alejandro PA-C [address] [place] [address] [place] [phone] Medication Problem Social History Tobacco Use [...] EDT Incoming fax from [facility] states the rx for lancets does [...] Visit [facility] Adult Primary Care - [address] [phone] Carrington Calderon MD 1 [facility] 1 [place] [phone] 02/27/2024 8:30 EDT Telemedicine [facility] Sleep Program - [address] [phone] Dwight Colbert [address] [place] [address] [phone] 02/29/2024 10:30 EDT Appointment [facility] Radiology Nuclear Medicine and PET - [address] [phone] 02/29/2024 14:30 EDT Appointment [facility] Radiology Nuclear Medicine and PET - [address] [address] 03/01/2024 8:00 EDT [facility] Radiology Nuclear Medicine and PET - [address] [address] 03/01/2024 9:30 EDT [facility] Radiology Nuclear Medicine and PET - [address] [address] documented as of this encounter Visit Diagnoses Diagnosis 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
--- OUTSIDE RECORDS SUMMARY | 2024-01-02 06:13 | XMS_ITS | Encounter Summary ---
Author Organization [facility] Address [address] [place] [address] Care Team Providers Care Industrial Cook Name Role Phone Unavailable Primary Care Provider [...] [facility] Adult Primary Care - [address] [phone] Carrington Calderon MD 1 [facility] 1 [place] [phone] 02/27/2024 8:30 EDT Telemedicine [facility] Sleep Program - [address] [phone] Dwight Colbert [address] [place] [address] [phone] 02/29/2024 10:30 EDT Appointment [facility] Radiology Nuclear Medicine and PET - [address] [phone] 02/29/2024 14:30 EDT Appointment [facility] Radiology Nuclear Medicine and PET - [address] [address] 03/01/2024 8:00 EDT Appointment [facility] Radiology Nuclear Medicine and PET - [address] [address] 03/01/2024 9:30 EDT Appointment [facility] Radiology Nuclear Medicine and PET [address] [address] documented as of this encounter Visit Diagnoses Not on filedocumented in this encounter
--- OUTSIDE RECORDS SUMMARY | 2024-01-02 06:13 | XMS_ITS | Encounter Summary ---
Author Organization [facility] Address [address] [place] [address] Care Team Providers Care Academic Records Specialist Name Role Phone Unavailable Primary Care [...] [facility] Adult Primary Care - [address] [id number] Carrington Calderon MD [address] [phone] 02/27/2024 8:30 EDT Telemedicine [facility] Sleep Program - [address] [id number] Dwight Colbert [address] [place] [phone] 02/29/2024 10:[address] [facility] Radiology Nuclear Medicine and PET - [address] [id number] 02/29/2024 14:[address] [facility] Radiology Nuclear Medicine and PET - [address] [address] 03/01/2024 8:00 EDT [facility] Radiology Nuclear Medicine and PET - [address] [id number] 03/01/2024 9:30 EDT [facility]ointment [facility] Radiology Nuclear Medicine and PET - [address] [address] documented as of this encounter Visit Diagnoses Not on filedocumented in this encounter
--- OUTSIDE RECORDS SUMMARY | 2024-01-02 06:13 | XMS_ITS | Encounter Summary ---
Author Organization [facility] Address [address] [place] [address] Care Team Providers Care [employer] Name Role Phone Carrington Calderon MD [facility] Reason for Referral * Consult (Routine) - Closed Specialty Diagnoses / Procedures Referred By Contact Referred To Contact Gastroenterology and Hepatology Diagnoses Nausea Gastroparesis Yue Hamilton MD [address] [place] [phone] [facility] [address] [place] [address] Referral ID Status Reason Start Date Expiration Date V isits Requested Visits Authorized [id number] Closed Specialty Services Required 12/09/2020 1 1 [...] Team (Late Contact Info) Description 12/09/2020 Telephone [facility] Adult Primary Care [place] [phone] Tonja Alejandro PA-C [address] [place] [address] Referral Request (GI) Social History [...] Info) Description 02/21/2024 9:45 EDT Office Visit [facility] Adult Primary Care - [address] [address] Carrington Calderon MD [address] [phone] 02/27/2024 8:30 EDT Telemedicine [facility] Sleep Program - [address] [address] Dwight Colbert [address] [place] [phone] 02/29/2024 10:30 EDT Appointment [facility] Radiology Nuclear Medicine and PET [address] [phone] 02/29/2024 14:30 EDT Appointment [facility] Radiology Nuclear Medicine and PET [address] [phone] 03/01/2024 8:00 EDT Appointment [facility] Radiology Nuclear Medicine and PET [address] [phone] 03/01/2024 9:30 EDT Appointment [facility] Radiology Nuclear Medicine and PET [address] [phone] Scheduled Referrals Name Type Priority Associated Diagnoses Order Schedule AMB CONS/FOLLOW UP GASTROENTEROLOGY Outpatient Referral Routine Nausea Gastroparesis Expected: 01/09/2021 (Approximate) documented as of this encounter Visit Diagnoses Diagnosis Nausea- Primary Nausea alone Gastroparesis documented in this encounter Care Teams [employer] Relationship Specialty Start Date End Date Carrington Calderon MD [address] [place] [phone] PCP - General Internal Medicine - Primary Care 12/09/20 documented as of this encounter
--- OUTSIDE RECORDS SUMMARY | 2024-01-02 06:13 | XMS_ITS | Encounter Summary ---
Author Organization [facility] Address [address] [place] [address] Care Team Providers Care Roller Presser Operator Name Role Phone Unavailable Primary Care [...] Expiration Date Visits Re quested Visits Authorized [id number] 1 1 Encounter Details Date Type Department Care Team (Late st Contact Info) Description 10/02/2020 18:44 EDT - 10/03/2020 12:37 EDT Hospital Encounter [facility] [address] [place] [address] Jonas Ambrosio MD 111 [facility], Level 1 [place] [address] Bonita See MD [address] [phone] Intractable vomiting (Primary Dx); Intractable [...] post salpingectomy 08/24 who admitted to the [facility] with intractable nausea and vomiting. Patient has [...] hyperglycemia, with long-term current use of insulin ([facility]) Use 1 pen needle as directed [...] Disposition Code Departure Means Destination [place] [facility] documented in this encounter Progress Notes * Carlos Gabriel - 10/03/2020 1237 EDT Case Management Note: Patient was discharged home to self care prior to initial CM assessment. This ghost writer reviewed the patient's chart and discussed the patient's situation with the medical team. No case management dc needs were identified. Carlos Gabriel RN, LEGAL INVESTIGATOR, [facility] Pager # [phone] * Shirley Monte RN - 10/03/2020 0625 EDT Admission Note D - 35 y.o. [...] Tonja Alejandro Chief Complaint: Intractable vomiting HPI: Cristy Luo is a 35 y.o. [...] has a referral for therapy. ??? Diabetes ([facility]) A1c 10.3 on 11/28/2019 - poorly controlled ??? Diabetes mellitus, type 2 ([facility]) pt check blood sugars at home- [...] occasionally ??? Obesity, unspecified ??? Osteomyelitis ([facility]) of left great toe-s/p amputation ??? Peripheral [...] IDDM2 c/b neuropathy - SSI - restart TWO WAY RADIO TECHNICIAN lantis 42 U and aspart 9 U TID once resumes eating (hold and use SSI until see trend considering glucose values overnight and recurrent N/V after arrival to floor) - held sitagliptin Counseled on monitoring left second digit Back pain - TWO WAY RADIO TECHNICIAN gabapentin Anxiety - TWO WAY RADIO TECHNICIAN lorazepam Diet: Consistent carb diet VTE Prophylaxis: lovenox Consults: none CODE STATUS: Full Prognosis/Disposition: likely discharge home tomorrow is she is medically stable. Admission Status Inpatient. Anticipated duration of hospitalization is greater than two midnights due to intractablevomiting. Keerthi Alejandro, MS 4 Acting Hard Metals Engraver Hand 10/03/2020 1:45 Cortex; Pager #[phone] Attending Attestation Date of service: 10/03/20 I [...] exam for emergent medical conditions at the [facility] on 10/02/2020 This note was created [...] with her endo in November. Vicki CLARKE ratchet setter Nurse Clinician #[id number] documented in this encounter Plan of Treatment Upcoming Encounters Date Type Department Care Team (Late st Contact Info) Description 02/21/2024 9:45 EDT Office Visit [facility] Adult Primary Care - [address] [phone] Carrington Calderon MD [address] [phone] 02/27/2024 8:30 EDT Telemedicine [facility] Sleep Program - [address] [phone] Dwight Colbert [address] [place] [phone] 02/29/2024 10:30 EDT Appointment [facility] Radiology Nuclear Medicine and PET [address] [phone] 02/29/2024 14:30 EDT Appointment [facility] Radiology Nuclear Medicine and PET [address] [phone] 03/01/2024 8:00 EDT Appointment [facility] Radiology Nuclear Medicine and PET [address] [phone] 03/01/2024 9:30 EDT Appointment [facility] Radiology Nuclear Medicine and PET [address] [phone] documented as of this encounter Procedures Procedure [...] EDT) 10/27/2020 16:3 8 EDT Scan 2 Lockstitch Collar Setter PROCEDURE/MINOR BRAULIO GICAL ORDERABLES * (ABNORMAL) COMPLETE BLOOD COUNT (10/03/2020 7:15 EDT) WBC 12.78(H) 4.00 - 12.40 K/cmm 10/03/2020 8:32 [facility] RBC 4.06 3.86 - 5.04 M/cmm 10/03/2020 8:32 [facility] Hemoglobin 13.1 11.6 - 15.2 gm/dL 10/03/2020 8:32 [facility] HCT 35.2 34.9 - 44.4 % 10/03/2020 8:32 [facility] MCV 87 81 - 98 fl 10/03/2020 8:32 [facility] MCH 32.3 26.7 - 33.3 pg 10/03/2020 8:32 [facility] MCHC 37.2(H) 32.1 - 35.9 gm/dL 10/03/2020 8:32 [facility] RDW-CV 12.2 <14.7 % 10/03/2020 8:32 [facility] RDW-SD 38.9 <50.4 fl 10/03/2020 8:32 [facility] PLT 372 141 - 377 K/cmm 10/03/2020 8:32 [facility] MPV 9.4(L) 9.5 - 12.7 fl 10/03/2020 8:32 [facility] Blood VENOUS BLOOD / Unknown Venipuncture / Unknown 10/03/2020 7:15 EDT 10/03/2020 8:21 EDT Bonita See MD HEMATOLOGY & PF4 ORD ERABLES Performing Organization Address City/[facility] Co de Phone Number [facility] [address] [place] [address] * (ABNORMAL) BUN (10/03/2020 7:15 EDT) BUN 6(L) 10 - 26 mg/dL 10/03/2020 9:07 EDT [facility] Blood VENOUS BLOOD / Unknown Venipuncture / Unknown 10/03/2020 7:15 EDT 10/03/2020 8:23 EDT Bonita See MD CHEMISTRY & BLOOD GA S ORDERABLES Performing Organization Address [facility] Co de Phone Number [facility] [address] [place] [address] * (ABNORMAL) CREATININE (10/03/2020 7:15 EDT) Creatinine 0.43(L) 0.52 - 1.04 mg/dL 10/03/2020 9:07 EDT [facility] eGFR 132 >60 mL/min/1.7 3m2 10/03/2020 9:07 EDT [facility] Comment:eGFR calculated gil curtis CKD-EPI equation for non- Americans. Multiply eGFR by 1.16 for patients. Blood VENOUS BLOOD / Unknown Venipuncture / Unknown 10/03/2020 7:15 EDT 10/03/2020 8:23 EDT Bonita See MD CHEMISTRY & BLOOD GA S ORDERABLES Performing Organization Address [facility] Co de Phone Number [facility] [address] [place] [address] * (ABNORMAL) ELECTROLYTES (10/03/2020 7:15 EDT) Pathologist [facility] Sodium 135(L) 136 - 145 mEq/L 10/03/2020 9:07 EDT [facility] Potassium 3.7 3.5 - 5.0 mEq/L 10/03/2020 9:07 EDT [facility] Chloride 98 96 - 110 mEq/L 10/03/2020 9:07 EDT [facility] CO2 Total 23 22 - 32 mEq/L 10/03/2020 9:07 EDT [facility] Blood VENOUS BLOOD / Unknown Venipuncture / Unknown 10/03/2020 7:15 EDT 10/03/2020 8:23 EDT Bonita See MD CHEMISTRY & BLOOD GA S ORDERABLES Performing Organization Address City/[facility]/ZIP Co de Phone Number [facility] [address] [place] [address] * (ABNORMAL) POCT GLUCOSE, INTERFACED (10/03/2020 6:02 EDT) [facility] Glucose, POC 177(H) 70 - 100 mg/dL 10/03/2020 6:08 EDT [facility] security specialist ID [id number] 10/03/2020 6:08 EDT [facility] HN LAB POC COMMENT (GLUCOSE) Test Performed by Nursing Services 10/03/2020 6:08 EDT [facility] Blood CAPILLARY BLOOD / Unknown 10/03/2020 6:02 EDT 10/03/2020 6:08 EDT Bonita See MD POINT OF CARE TEST O RDERABLES [facility] [address] [place] [address] * COVID-19 TEST [facility] PCR (10/02/2020 22:44 EDT) Swab ENTIRE NASOPHARYNX / Unknown Swab / Unknown 10/02/2020 22:44 EDT 10/02/2020 22:46 EDT Nektarios Konstantinopoulos MD MICROBIOL OGY - GENERAL ORDERABLES [facility] [address] [place] [address] * COVID-19 TESTING (10/02/2020 22:44 EDT) COVID-19 rt-PCR Result Negative Negative 10/03/2020 1:45 EDT [facility] Comment: This test has [...] history, and epidemiological information. Performed on the [employer] Fusion instrument Performing Lab [place] [facility] 10/03/2020 1:45 EDT [facility] Swab ENTIRE NASOPHARYNX / Unknown Swab / Unknown 10/02/2020 22:44 EDT 10/02/2020 22:46 EDT Beverly Marvin MD MICROBIOL OGY - GENERAL ORDERABLES [facility] [address] [place] [address] * CT ABDOMEN PELVIS W CONTRAST (10/02/2020 [...] suspicious osseous lesion. Multilevel discogenic endplate changes. Flame Cutting Machine Operator Helper: No additional findings. Procedure Note Wilian Wellington [...] or suspicious osseous lesion.Multilevel discogenic endplate changes. Flame Cutting Machine Operator Helper: No additional findings. IMPRESSION 1. No acute inflammatory process identified in the abdomen and pelvis. 2. Nonobstructing left renal calculus, unchanged. I have personally reviewed the images and the above interpretation andagree with the findings. Beverly Marvin MD IMG CT OR DERABLES * QUANT BETA HCG, (10/02/2020 19:51 EDT) Beta HCG Quant, <5 <5 mIU/ml 10/02/2020 20:26 EDT [facility] Comment: NOTE: : Negative: [...] Marvin MD CHEMISTRY & BLOOD GAS ORDERABLES [facility] [address] [place] [address] * LACTIC ACID (10/02/2020 19:10 EDT) Lactic Acid 1.2 <=2.0 mmol/L 10/02/2020 19:28 EDT [facility] Blood VENOUS BLOOD / Unknown Venipuncture / Unknown 10/02/2020 19:10 EDT 10/02/2020 19:16 EDT Beverly Marvin MD CHEMISTRY & BLOOD GAS ORDERABLES Performing Organization Address City/[facility]/ZIP Co de Phone Number [facility] [address] [place] [address] * HOLD BLUE TOP (10/02/2020 19:10 EDT) Hold Hold 10/02/2020 20:17 EDT [facility] Blood VENOUS BLOOD / Unknown Venipuncture / Unknown 10/02/2020 19:10 EDT 10/02/2020 19:15 EDT Jonas Ambrosio MD LAB INFO SERVICE AND SUPPORT & PHONE RESULT Performing Organization Address [facility] Co de Phone Number [facility] [address] [place] [address] * (ABNORMAL) SCREENING GLUCOSE (10/02/2020 19:10 EDT) Pathologist [facility] Glucose, Screening 189(H) 70 - 100 mg/dL 10/02/2020 19:32 EDT [facility] Comment:Elevated screening g lucose value greater than 180 mg/dl, please order follow up Hemoglobin A1C. Blood VENOUS BLOOD / Unknown Venipuncture / Unknown 10/02/2020 19:10 EDT 10/02/2020 19:16 EDT Jonas Ambrosio MD CHEMISTRY & BLOOD GA S ORDERABLES Performing Organization Address [facility]/ZIP Co de Phone Number [facility] [address] [place] [address] * MAGNESIUM (10/02/2020 19:10 EDT) Magnesium 1.8 1.7 - 2.8 mg/dL 10/02/2020 19:28 EDT [facility] Blood VENOUS BLOOD / Unknown Venipuncture / Unknown 10/02/2020 19:10 EDT 10/02/2020 19:16 EDT Jonas Ambrosio MD CHEMISTRY & BLOOD GA S ORDERABLES Performing Organization Address [facility]/ZIP Co de Phone Number [facility] [address] [place] [address] * TROPONIN I (10/02/2020 19:10 EDT) Troponin I (ng/mL) <0.034 <0.034 ng/mL 10/02/2020 19:40 EDT [facility] Blood VENOUS BLOOD / Unknown Venipuncture / Unknown 10/02/2020 19:10 EDT 10/02/2020 19:16 EDT Narrative [facility] - 10/02/2020 19:40 EDT The results of this assay can be falsely lowered due to the consumption of Biotin. Jonas Ambrosio MD CHEMISTRY & BLOOD GA S ORDERABLES Performing Organization Address [facility] de Phone Number [facility] [address] [place] [address] * (ABNORMAL) ELECTROLYTES (10/02/2020 19:10 EDT) Pathologist [facility] Sodium 132(L) 136 - 145 mEq/L 10/02/2020 19:28 EDT [facility] Potassium 3.4(L) 3.5 - 5.0 mEq/L 10/02/2020 19:28 EDT [facility] Chloride 95(L) 96 - 110 mEq/L 10/02/2020 19:28 EDT [facility] CO2 Total 30 22 - 32 mEq/L 10/02/2020 19:28 EDT [facility] Blood VENOUS BLOOD / Unknown Venipuncture / Unknown 10/02/2020 19:10 EDT 10/02/2020 19:16 EDT Jonas Ambrosio MD CHEMISTRY & BLOOD GA S ORDERABLES Performing Organization Address [facility]/ZIP Co de Phone Number [facility] [address] [place] [address] * (ABNORMAL) CREATININE (10/02/2020 19:10 EDT) Creatinine 0.45(L) 0.52 - 1.04 mg/dL 10/02/2020 19:28 EDT [facility] eGFR 130 >60 mL/min/1.7 3m2 10/02/2020 19:28 EDT [facility] Comment:eGFR calculated gil curtis CKD-EPI equation for non- Americans. Multiply eGFR by 1.16 for patients. Blood VENOUS BLOOD / Unknown Venipuncture / Unknown 10/02/2020 19:10 EDT 10/02/2020 19:16 EDT Jonas Ambrosio MD CHEMISTRY & BLOOD GA S ORDERABLES Performing Organization Address [facility] Co de Phone Number [facility] [address] [place] [address] * (ABNORMAL) BUN (10/02/2020 19:10 EDT) BUN 6(L) 10 - 26 mg/dL 10/02/2020 19:28 EDT [facility] Blood VENOUS BLOOD / Unknown Venipuncture / Unknown 10/02/2020 19:10 EDT 10/02/2020 19:16 EDT Jonas Ambrosio MD CHEMISTRY & BLOOD GA S ORDERABLES Performing Organization Address City/[facility]/ZIP Co de Phone Number [facility] [address] [place] [address] * (ABNORMAL) COMPLETE BLOOD COUNT AND DIFFERENTIAL (10/02/2020 19:10 EDT) WBC 13.29(H) 4.00 - 12.40 K/cmm 10/02/2020 19:32 EDT [facility] RBC 4.09 3.86 - 5.04 M/cmm 10/02/2020 19:32 EDT [facility] Hemoglobin 12.7 11.6 - 15.2 gm/dL 10/02/2020 19:32 [facility] HCT 36.1 34.9 - 44.4 % 10/02/2020 19:32 [facility] MCV 88 81 - 98 fl 10/02/2020 19:32 [facility] MCH 31.1 26.7 - 33.3 pg 10/02/2020 19:32 [facility] MCHC 35.2 32.1 - 35.9 gm/dL 10/02/2020 19:32 [facility] RDW-CV 12.3 <14.7 % 10/02/2020 19:32 [facility] RDW-SD 39.6 <50.4 fl 10/02/2020 19:32 [facility] PLT 355 141 - 377 K/cmm 10/02/2020 19:32 [facility] MPV 9.2(L) 9.5 - 12.7 fl 10/02/2020 19:32 [facility] % Neutrophils 57.2 % 10/02/2020 19:32 [facility] % Lymphocytes 32.1 % 10/02/2020 19:32 [facility] % Monocytes 9.0 % 10/02/2020 19:32 [facility] % Eosinophils 0.8 % 10/02/2020 19:32 [facility] % Basophils 0.5 % 10/02/2020 19:32 [facility] % Immature Grans 0.4 % 10/03/19 19:32 [facility] Absolute Neutrophils 7.62 2.20 - 8.85 K/cmm 10/02/2020 19:32 [facility] Absolute Lymphocytes 4.27(H) 1.09 - 3.30 K/cmm 10/02/2020 19:32 [facility] Absolute Monocytes 1.19(H) 0.10 - 0.80 K/cmm 10/02/2020 19:32 [facility] Absolute Eosinophils 0.10 0.03 - 0.61 K/cmm 10/02/2020 19:32 EDT [facility] ABS Basophils 0.06 0.01 - 0.11 K/cm 10/02/2020 19:32 EDT [facility] Absolute Immature Grans 0.05 0.00 - 0.06 K/cmm 10/02/2020 19:32 EDT [facility] Type of Differential: Auto 10/02/2020 19:32 EDT [facility] Blood VENOUS BLOOD / Unknown Venipuncture / Unknown 10/02/2020 19:10 EDT 10/02/2020 19:15 EDT Jonas Ambrosio MD PACKAGES & DNA PROBE ORDERABLES Performing Organization Address City/State/[facility] Co de Phone Number [facility] [address] [place] [address] * EKG 12-LEAD (10/02/2020 19:04 EDT) 10/02/2020 19:0 4 EDT Narrative [facility] EKG - 10/27/2020 16:30 EDT ?[facility] Emergency ? Test Date: ?2020-10-02 Pat Name: ? CRISTY LUO ?Department: ?? ED ? Room: ? AC06 Gender: ? Female ? Sales Executive Insurance: ?? [id number] : ?1985 ? Requested By: BO JONAS Santizo Order Number: [id number] ? Reading : ?? CINDY SNYDER MD ? Measurements Intervals ?[place] ? Rate: ? 92 ? P: ?59 [place]: ? 155 ?QRS: ?10 QRSD: ? 91 ? T: ?0 QT: ? 356 ? QTc: ?442 ? Interpretive Statements SINUS RHYTHM Compared to ECG 10/02/2020 19:04:21 No significant changes I reviewed the tracing and have either agreed or edited the findings in this report. Electronically Signed On 10-27-2020 16:30:39 EDT by CINDY SNYDER MD. Procedure Note Cindy Snyder Jr., MD - 10/27/2020 [facility] Emergency Test Date: 2020-10-02 Pat Name: CRISTY LUO Department: ED Room: [facility] Gender: Female Sales Executive Insurance: [id number] : 1985 Requested By: BO Santizo Order Number: [id number] Reading MD: CINDY SNYDER MD Measurements Intervals [place] Rate: 92 P: 59 [place]: 155 QRS: 10 QRSD: 91 T: 0 QT: 356 QTc: 442 Interpretive Statements SINUS RHYTHM Compared to ECG 10/02/2020 19:04:21 No significant changes I reviewed the tracing and have either agreed or edited the findings inthis report. Electronically Signed On 10-27-2020 16:30:39 EDT by CINDY SANDOVAL. Jonas Ambrosio MD CARDIAC ECG ORDERABL ES [facility] EKG * (ABNORMAL) COMPREHENSIVE METABOLIC PANEL (CMP) (10/01/2020 11:51 EDT) Sodium 139 136 - 145 mEq/L 10/02/2020 19:47 [facility] Potassium 3.5 3.5 - 5.0 mEq/L 10/02/2020 19:47 [facility] Comment: NOTE: Interpret with caution. Prolonged sample storage may alter the result. Chloride 97 96 - 110 mEq/L 10/02/2020 19:47 [facility] CO2 Total 23 22 - 32 mEq/L 10/02/2020 19:47 [facility] Comment: NOTE: Interpret with caution. Prolonged sample storage may alter the result. Glucose 221(H) 70 - 100 mg/dL 10/02/2020 19:47 [facility] BUN 13 10 - 26 mg/dL 10/02/2020 19:47 [facility] Creatinine 0.50(L) 0.52 - 1.04 mg/dL 10/02/2020 19:47 [facility] eGFR 126 >60 mL/min/1.7 3m2 10/02/2020 19:47 [facility] Comment:eGFR calculated gil curtis CKD-EPI equation for non- Americans. Multiply eGFR by 1.16 for patients. Total Protein 6.6 6.3 - 8.2 g/dL 10/02/2020 19:47 T [facility] Albumin 4.1 3.4 - 4.9 g/dL 10/02/2020 19:47 [facility] Alkaline Phosphatase 86 38 - 126 U/L 10/02/2020 19:47 [facility] AST 31 15 - 46 U/L 10/02/2020 19:47 T [facility] ALT 24 <35 U/L 10/02/2020 19:47 [facility] Bilirubin, Total 0.5 <1.4 mg/dL 10/03/19 19:47 T [facility] Calcium 9.6 8.5 - 10.5 mg/dL 10/02/2020 19:47 [facility] Calculated Calcium 9.5 8.5 - 10.5 mg/dL 10/02/2020 19:47 T [facility] Blood VENOUS BLOOD / Unknown Venipuncture / Unknown 10/01/2020 11:51 EDT 10/01/2020 11:57 EDT Beverly Marvin MD CHEMISTRY & BLOOD GAS ORDERABLES Performing Organization Address City/[facility] Co de Phone Number [facility] [address] [place] [address] * LIPASE (10/01/2020 11:51 EDT) Lipase 174 <251 U/L 10/02/2020 19:46 EDT [facility] Blood VENOUS BLOOD / Unknown Venipuncture / Unknown 10/01/2020 11:51 EDT 10/01/2020 11:57 EDT Beverly Marvin MD CHEMISTRY & BLOOD GAS ORDERABLES Performing Organization Address [facility] Co de Phone Number [facility] [address] [place] [address] documented in this encounter Visit Diagnoses Diagnosis Intractable vomiting- Primary Persistent vomiting Intractable vomiting Persistent vomiting Intractable vomiting with nausea, unspecified vomiting type Diabetic foot infection (HCC-CMS) Type II or unspecified type diabetes mellitus with other specified manifestations, not stated as uncontrolled 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, 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 (HCC-CMS) Vomiting Vomiting alone documented in this encounter [...] imaging, 1 dose, Starting on Tue10/02/20 at 203, Until Tue10/02/20 at 2046, Routine, Imaging Protocol Orders Given 10/02/2020 20:47 [...] application, topical, NOW X1, 1 dose, On Renee 10/02/20 at [phone] (Given - Provider: Fermin Ramirez RN) electrolyte-A [...] imaging, 1 dose, Starting on Tue10/02/20 at 203, Until Tue10/02/20 at 2046, Routine, Imaging Protocol [...] 1 dose, On Tue10/02/20 at 2130, STAT 2123 (Given - Provider: Lily Petersen) ondansetron (PF) (ZOFRAN) injection 4 mg (COMPLETED) 4 mg, intravenous, NOW X1, 1 dose, On Tue10/03/20 at 0530, Routine 0533 (Given - Provid er: Shirley Monte RN) potassium chloride SA (K-DUR) tablet 40 mEq 40 mEq, oral, Once (Without Time Specified), 1 dose, Starting on 10/04/20 at 0600, Until Tue10/03/20 at 1503, Routine [...] FLEXPEN) injection 1 10/03/2020 polyethylene glycol 3350 (GA RALAX) packet 17 g 1 10/03/2020 potassium chloride SA (K-DUR ) tablet 40 mEq 1 10/03/2020 ramelteon (ROZEREM) tablet 8 mg 1 Diet Count Last Ordered Date First Orde red Date DISCHARGE DIET 1 10/03/2020 Nursing Count Last Ordered Date First Orde red Date ACTIVITY INSTRUCTIONS 1 10/03/2020 BATHING INSTRUCTIONS 1 10/03/2020 DRIVING INSTRUCTIONS 1 10/03/2020 NOTIFY DRAWING CHECKER 1 10/02/2020 Admission Count Last Ordered Date [...]
--- OUTSIDE RECORDS SUMMARY | 2024-01-02 06:13 | XMS_ITS | Encounter Summary ---
Author Organization [facility] Address [address] [place] [address] Care Team Providers Care Trade Manager Name Role Phone Unavailable Primary Care Provider Unavailabl e Reason for Visit * Reason Onset Date Comments No Show 11/24/2020 Encounter Details Date Type Department Care Team (Late st Contact Info) Description 11/24/2020 Telephone [facility] Adult Primary Care - [address] [address]81 Tonja Alejandro PA-C [address] [place] [address] [place] [phone] No Show Social History Tobacco Use [...] Description 02/21/2024 9:45 EDT Office Visit [facility] Adult Primary Care - [address] 539091 Carrington Calderon MD [address] [phone] 02/27/2024 8:30 EDT Telemedicine [facility] Sleep Program - [address] 137401 Dwight Colbert [address] [place] [phone] 02/29/2024 10:30 EDT Appointment [facility] Radiology Nuclear Medicine and PET - [address] [phone] 02/29/2024 14:30 EDT Appointment [facility] Radiology Nuclear Medicine and PET [address] [phone] 03/01/2024 8:00 EDT Appointment [facility] Radiology Nuclear Medicine and PET [address] [phone] 03/01/2024 9:30 EDT Appointment [facility] Radiology Nuclear Medicine and PET [address] [phone] documented as of this encounter Visit Diagnoses Not on filedocumented in this encounter
--- OUTSIDE RECORDS SUMMARY | 2024-01-02 06:13 | XMS_ITS | Encounter Summary ---
Author Organization [facility] Address [address] [place] [address] Care Team Providers Care Set Up Mechanic Heading Machines Name Role Phone Unavailable Primary Care Provider Unavailabl e Reason for Visit * Reason Comments Dehydration needs rehydration an d nausea meds per PCP Encounter Details Date Type Department Care Team (Latest Contact Info) Description 11/20/2020 9:58 EDT - 11/20/2020 12:29 EDT Hospital Encounter [facility] - [address] [address] Fran Blanco MD [address] [place] [phone] Nausea and vomiting, intractability of vomiting [...] through Care Everywhere. * Nausea and Vomiting (Uzbek) documented in this encounter Medications at Time of Discharge Medication Sig Dispensed Refills Start Date End Date acetaminophen (TYLENOL) 325 mg tablet Take 2 Tabs by mouth every 4 hours as needed for Pain. 08/20/2020 blood glucose meter One Touch Verio Flex meter. 1 Each 10/04/2019 12/21/2021 blood glucose test strips Brand: MitrAssist Precision Cristo, use as directed if Freestyle [...] hyperglycemia, with long-term current use of insulin ([facility]) Use 1 pen needle as [...] Ketones, UA 3+ (AA) Negative mg/dL Specific [place], Urine 1.025 1.001 - 1.035 Blood, UA [...] or constipation. She's been in her usual [place] of health prior to this. No URI [...] 0 ??? blood glucose test strips Brand: Majitekyle Precision Cristo, use as directed if Freestyle [...] VIGNESH 2 READER) misc 1 Device by [facility] (non-drug; comboroute) route continuous. 1 Each 0 ??? flash glucose sensor (FREESTYLE VIGNESH 2 SENSOR) kit 1 Device by [facility] (non- drug; combo route) route continuous. 6 [...] diabetes mellitus with left diabetic foot ulcer ([facility]) 05/03/2020 ??? Osteomyelitis of great toe of left foot ([facility]) 03/12/2020 ??? Diabetic foot ulcer associated with diabetes mellitus due to underlying condition ([facility]) 03/07/2020 ??? Diabetic foot infection ([facility]) 03/06/2020 ??? Diabetic foot ulcer ([facility]) 03/06/2020 ??? Cellulitis of great toe of left foot 11/26/2019 ??? Chronic midline low back pain without sciatica 11/26/2019 ??? Chronic left ear pain 09/04/2015 ??? Gastroparesis 08/10/2020 SUSPECTED - still needs to be eval with gastric emptying study (as of 08/10/20) ??? Admission for sterilization 06/27/2020 Added automatically from request for surgery [id number] ??? Osteomyelitis of toe of left foot ([facility]) 06/05/2020 Added automatically from request for surgery [id number] ??? Type 2 diabetes mellitus with diabetic polyneuropathy, with long-term current use of insulin ([facility]) 06/05/2020 Added automatically from request for surgery [id number] ??? Family history of rheumatoid arthritis 09/04/2015 Mother, pt with chronic back pain. Told arthritis in spine in teen yrs. ??? Type 2 diabetes mellitus ([facility]) 09/03/2015 Dx approx age 25. Controlled with lifestyle behaviors, wt loss. Had taken lantus in past 80u, Followed by endocrine in [facility]. Stopped few yrs ago until this past month. ??? Anxiety and depression 05/12/2010 Onset teen yrs. Treated with citalopram in approx 2012 - had SI, treated at [facility]. Marijuana prn to help with stress/anxiety sx. [...] has a referral for therapy. ??? Diabetes ([facility]) A1c 10.3 on 11/28/2019 - poorly controlled ??? Diabetes mellitus, type 2 ([facility]) pt check blood sugars at [...] vomiting occasionally ??? Obesity, unspecified ??? Osteomyelitis ([facility]) of left great toe-s/p amputation [...] of further medications. Upon departure from [facility], the patient's pain was 0 on a zero to ten scale. Any further pain treatment will be at the discretion of the provider following up with the patient based on their clinical assessment . Condition at departure from the [facility] : Stable MDM [...] has a referral for therapy. ??? Diabetes ([facility]) A1c 10.3 on 11/28/2019 - poorly controlled ??? Diabetes mellitus, type 2 ([facility]) pt check blood sugars at [...] 02/21/2024 9:45 EDT Office Visit [facility] Adult Primary Care - [address] [phone] Carrington Calderon MD [address] [phone] 02/27/2024 8:30 EDT Telemedicine [facility] Sleep Program - [address] [phone] Dwight Colbert [address] [place] [phone] 02/29/2024 10:30 EDT Appointment [facility] Radiology Nuclear Medicine and PET - [address] [phone] 02/29/2024 14:30 EDT Appointment [facility] Radiology Nuclear Medicine and PET - [address] [phone] 03/01/2024 8:[address] [facility] Radiology Nuclear Medicine and PET - [address] [phone] 03/01/2024 9:30 EDT Appointment [facility] Radiology Nuclear Medicine and PET - [address] [phone] documented as of this encounter Procedures Procedure [...] laboratory if clinically indicated. 11/21/2020 12:11 EDT [facility] Urine URINE SPECIMEN COLLECTION, CLEAN CATCH / Unknown Urine Collect / Unknown 11/20/2020 11:48 EDT 11/20/2020 12:45 EDT Fran Blanco MD MICROBIOLOGY - G ENERAL ORDERABLES Performing Organization Address [facility] de Phone Number [facility] [address] [place] [address] * (ABNORMAL) URINE SEDIMENT (MICRO) WITH REFLEX TO CULTURE (11/20/2020 11:48 EDT) Urine RBC Count, Auto 3 - 10(A) 0 - 2 Cells/HPF 11/20/2020 12:45 EDT [facility] Urine WBC Count, Auto 11 - 50(A) 0 - 3 Cells/HPF 11/20/2020 12:45 EDT [facility] Urine Squamous Count, Auto Many(A) None Seen Cells/HPF 11/20/2020 12:45 EDT [facility] Urine Hyaline Cast Count, Auto <=10 <=10 Casts/LPF 11/20/2020 12:45 EDT [facility] Urine Bacteria Count, Auto Moderate(A ) None Seen Bacteria/H PF 11/20/2020 12:45 EDT [facility] Urine URINE SPECIMEN COLLECTION, CLEAN CATCH / Unknown Urine Collect / Unknown 11/20/2020 11:48 EDT 11/20/2020 12:25 EDT Narrative [facility] - 11/20/2020 12:45 EDT A Urine Culture test has been reflexively ordered based on result criteria from the Urine Sediment Analysis. Urine Sediment Analysis results are unreliable on urines that are unrefrigerated for >2 hrs or refrigerated >8 hrs. Fran Blanco MD URINALYSIS ORDER HAILEY Performing Organization Address [facility] Co de Phone Number [facility] [address] [place] [address] * POCT CSN BARCODE URINE DIPSTICK (11/20/2020 11:47 EDT) Urine URINE SPECIMEN COLLECTION, CLEAN CATCH / Unknown Urine Collect / Unknown 11/20/2020 11:47 EDT 11/20/2020 11:47 EDT Fran Blanco MD LAB INFO SERVICE AND SUPPORT & PHONE RESULT Performing Organization Address [facility]/ZIP Co de Phone Number [facility] [address] [place] [address] * (ABNORMAL) POCT URINE DIPSTICK, CLINITEK (11/20/2020 11:44 EDT) Color, UA Yellow Yellow 11/20/2020 11:46 T [facility] Clarity, UA Cloudy(A) Clear 11/20/2020 11:46 EDT [facility] Glucose, UA 2+(A) Negative mg/dL 11/20/2020 11:46 T [facility] Bilirubin, UA Negative Negative 11/20/2020 11:46 T [facility] Ketones, UA 3+(AA) Negative mg/dL 11/20/2020 11:46 T [facility] Specific [place], Urine 1.025 1.001 - 1.035 11/20/2020 11:46 T [facility] Blood, UA Trace(A) Negative 11/20/2020 11:46 [facility] pH, UA 7.0 <=8 11/20/2020 11:46 T [facility] Protein, UA 1+(A) Negative mg/dL 11/20/2020 11:46 T [facility] Urobilinogen, UA 0.2 0.2 - 1.0 EU/dL 11/20/2020 11:46 T [facility] Nitrite, UA Negative Negative 11/20/2020 11:46 T [facility] Leuk Esterase Negative Negative 11/20/2020 11:46 T [facility] HN LAB COMMENT (CLINITEK, UR) Test performed at Urgent Care 11/20/2020 11:46 T [facility] Urine URINE SPECIMEN COLLECTION, CLEAN CATCH / Unknown 11/20/2020 11:44 EDT 11/20/2020 11:46 EDT Fran Blanco MD POINT OF CARE TE ST ORDERABLES [facility] [address] [place] [address] * (ABNORMAL) COMPLETE BLOOD COUNT AND DIFFERENTIAL (11/20/2020 10:35 EDT) WBC 14.78(H) 4.00 - 12.40 K/cmm 11/20/2020 11:51 [facility] RBC 4.65 3.86 - 5.04 M/cmm 11/20/2020 11:51 [facility] Hemoglobin 14.1 11.6 - 15.2 gm/dL 11/20/2020 11:51 [facility] HCT 40.7 34.9 - 44.4 % 11/20/2020 11:51 [facility] MCV 88 81 - 98 fl 11/20/2020 11:51 [facility] MCH 30.3 26.7 - 33.3 pg 11/20/2020 11:51 [facility] MCHC 34.6 32.1 - 35.9 gm/dL 11/20/2020 11:51 [facility] RDW-CV 12.5 <14.7 % 11/20/2020 11:51 [facility] RDW-SD 39.7 <50.4 fl 11/20/2020 11:51 [facility] PLT 385(H) 141 - 377 K/cmm 11/20/2020 11:51 [facility] MPV 10.2 9.5 - 12.7 fl 11/20/2020 11:51 [facility] % Neutrophils 84.6 % 11/20/2020 11:51 [facility] % Lymphocytes 10.4 % 11/20/2020 11:51 [facility] % Monocytes 4.3 % 11/20/2020 11:51 [facility] % Eosinophils 0.0 % 11/20/2020 11:51 [facility] % Basophils 0.2 % 11/20/2020 11:51 [facility] % Immature Grans 0.5 % 11/21/19 11:51 [facility] Absolute Neutrophils 12.51(H) 2.20 - 8.85 K/cmm 11/20/2020 11:51 [facility] Absolute Lymphocytes 1.53 1.09 - 3.30 K/cmm 11/20/2020 11:51 [facility] Absolute Monocytes 0.64 0.10 - 0.80 K/cmm 11/20/2020 11:51 [facility] Absolute Eosinophils 0.00(L) 0.03 - 0.61 K/cmm 11/20/2020 11:51 [facility] ABS Basophils 0.03 0.01 - 0.11 K/cm 11/20/2020 11:51 [facility] Absolute Immature Grans 0.07(H) 0.00 - 0.06 K/cmm 11/20/2020 11:51 [facility] Type of Differential: Auto 11/20/2020 11:51 [facility] Blood VENOUS BLOOD / Unknown Venipuncture / Unknown 11/20/2020 10:35 EDT 11/20/2020 11:37 EDT Fran Blanco MD PACKAGES & DNA P ROBE ORDERABLES [facility] [address] [place] [address] * (ABNORMAL) COMPREHENSIVE METABOLIC PANEL (CMP) (11/20/2020 10:35 EDT) Sodium 143 136 - 145 mEq/L 11/20/2020 12:01 [facility] Potassium 4.0 3.5 - 5.0 mEq/L 11/20/2020 12:01 [facility] Chloride 97 96 - 110 mEq/L 11/20/2020 12:01 [facility] CO2 Total 28 22 - 32 mEq/L 11/20/2020 12:01 [facility] Glucose 307(H) 70 - 100 mg/dL 11/20/2020 12:01 [facility] BUN 12 10 - 26 mg/dL 11/20/2020 12:01 [facility] Creatinine 0.49(L) 0.52 - 1.04 mg/dL 11/20/2020 12:01 [facility] eGFR 127 >60 mL/min/1.7 3m2 11/20/2020 12:01 [facility] Comment:eGFR calculated gil curtis CKD-EPI equation for non- Americans. Multiply eGFR by 1.16 for patients. Total Protein 7.6 6.3 - 8.2 g/dL 11/20/2020 12:01 [facility] Albumin 4.6 3.4 - 4.9 g/dL 11/20/2020 12:01 [facility] Alkaline Phosphatase 113 38 - 126 U/L 11/20/2020 12:01 [facility] AST 23 15 - 46 U/L 11/20/2020 12:01 [facility] ALT 21 <35 U/L 11/20/2020 12:01 [facility] Bilirubin, Total <0.5 <1.4 mg/dL 11/21/19 21 12:01 [facility] Calcium 10.3 8.5 - 10.5 mg/dL 11/20/2020 12:01 [facility] Calculated Calcium 9.8 8.5 - 10.5 mg/dL 11/20/2020 12:01 [facility] Blood VENOUS BLOOD / Unknown Venipuncture / Unknown 11/20/2020 10:35 EDT 11/20/2020 11:37 EDT Fran Blanco MD CHEMISTRY & BLOO D GAS ORDERABLES [facility] [address] [place] [address] documented in this encounter Visit Diagnoses Diagnosis [...] dose, On Renee 11/20/20 at 1030, Routine 1038 (Given - Provid er: Harini Castaneda RN) sodium chloride 0.9 % BOLUS 1,000 mL (COMPLETED) 1,000 mL, intravenous, NOW X1, 1 dose, On Renee 11/20/20 at 1030, Routine 1035 (New Bag - Prov ider: Harini Castaneda RN) documented in this encounter
--- OUTSIDE RECORDS SUMMARY | 2024-01-02 06:13 | XMS_ITS | Encounter Summary ---
Author Organization [facility] Address [address] [place] [address] Care Team Providers Care Leadership Development Manager Name Role Phone Unavailable Primary Care Provider Unavailabl e Reason for Visit * Reason Onset Date Comments Medications Refill 10/07/2020 Encounter Details Date Type Department Care Team (Late st Contact Info) Description 10/07/2020 Telephone [facility] Endocrinology - [facility] [address] [place] [address] Sara Zafar NP 62 [facility] [address] [place] [phone] Medications Refill Social History Tobacco [...] [facility] Adult Primary Care - [address] 016291 Carrington Calderon MD 1 [facility] 1 [place] [address] 02/27/2024 8:30 EDT Telemedicine [facility] Sleep Program - [address] [address] Dwight Colbert [address] [place] [phone] 02/29/2024 10:30 EDT Appointment [facility] Radiology Nuclear Medicine and PET - [address] [phone] 02/29/2024 14:30 EDT Appointment [facility] Radiology Nuclear Medicine and PET [address] [phone] 03/01/2024 8:00 EDT Appointment [facility] Radiology Nuclear Medicine and PET [address] 129131 03/01/2024 9:30 EDT Appointment [facility] Radiology Nuclear Medicine and PET [address] [phone] documented as of this encounter Visit Diagnoses Not on filedocumented in this encounter
--- OUTSIDE RECORDS SUMMARY | 2024-01-02 06:13 | XMS_ITS | Encounter Summary ---
Author Organization [facility] Address [address] [place] [address] Care Team Providers Care Stem Shaper Name Role Phone Unavailable Primary Care Provider Unavailabl e Reason for Visit * Reason Onset Date Comments Medications Refill 10/01/2020 Encounter Details Date Type Department Care Team (Late st Contact Info) Description 10/01/2020 Refill [facility] Adult Primary Care - [address] [address] Tonja Alejandro PA-C [address] [place] [address] [place] [phone] Medications Refill Social History Tobacco Use [...] EDT Medication(s) Requested: metoclopramide HCI Preferred Pharmacy: [id number] Is patient out of [...] [facility] Adult Primary Care - [address] [phone] Carrington Calderon MD 1 [facility] 1 [place] [address] 02/27/2024 8:30 EDT Telemedicine [facility] Sleep Program - [address] 972121 Dwight Colbert [address] [place] [address] [phone] 02/29/2024 10:30 EDT Appointment [facility] Radiology Nuclear Medicine and PET - [address] [phone] 02/29/2024 14:30 EDT Appointment [facility] Radiology Nuclear Medicine and PET - [address] [phone] 03/01/2024 8:00 EDT Appointment [facility] Radiology Nuclear Medicine and PET - [address] [phone] 03/01/2024 9:30 EDT Appointment [facility] Radiology Nuclear Medicine and PET [address] [phone] documented as of this encounter Visit Diagnoses Not on filedocumented in this encounter
--- OUTSIDE RECORDS SUMMARY | 2024-01-02 06:13 | XMS_ITS | Encounter Summary ---
Author Organization [facility] Address [address] [place] [address] Care Team Providers Care Urogynaecologist Name Role Phone Unavailable Primary Care Provider Unavailabl e Reason for Visit * Reason Onset Date Comments Emesis 11/20/2020 Encounter Details Date Type Department Care Team (Late st Contact Info) Description 11/20/2020 Telephone [facility] Adult Primary Care - [address] [phone] Tonja Alejandro PA-C [address] [place] [address] [place] [phone] Emesis Social History Tobacco Use Types [...] but can talk to triage nurse at [facility]. Called and spoke briefly with pt: She [...] not receive previous reglan script. Resending to [facility]. The patient indicates understanding of these issues [...] [facility] Adult Primary Care - [address] [phone] Carrington Calderon MD [address] [phone] 02/27/2024 8:30 EDT Telemedicine [facility] Sleep Program - [address] 600321 Dwight Colbert [address] [place] [address] [phone] 02/29/2024 10:30 EDT Appointment [facility] Radiology Nuclear Medicine and PET - [address] [phone] 02/29/2024 14:30 EDT Appointment [facility] Radiology Nuclear Medicine and PET - [address] [address] 03/01/2024 8:00 EDT Appointment [facility] Radiology Nuclear Medicine and [address] [address] 03/01/2024 9:30 EDT Appointment [facility] Radiology Nuclear Medicine and PET [address] [address] documented as of this encounter Visit Diagnoses [...]
--- OUTSIDE RECORDS SUMMARY | 2024-01-02 06:13 | XMS_ITS | Encounter Summary ---
Author Organization [facility] Address [address] [place] [address] Care Team Providers Care Software Test And Validation Engineer Name Role Phone Carrington Calderon MD Primary Care Provi anders Reason for Visit * Reason Onset Date Comments Medications Refill 12/04/2020 Medications Refill 12/05/2020 Encounter Details Date Type Department Care Team (Late st Contact Info) Description 12/04/2020 Refill [facility] Adult Primary Care - [address] [phone] Tonja Alejandro PA-C [address] [place] [phone] Medications Refill; Medications Refill Social History [...] Notes * Telephone Encounter - Eryn Gutierrez, RN - 12/04/2020 1650 EDT Spoke with pharmacy. [facility] [address] 637111 Carrington Calderon MD [address] [phone] 02/27/2024 8:30 EDT Telemedicine [facility] Sleep Program - [address] [phone] Dwight Colbert [address] [place] [address] [phone] 02/29/2024 10:30 EDT Appointment [facility] Radiology Nuclear Medicine and PET - [address] [phone] 02/29/2024 14:30 EDT Appointment [facility] Radiology Nuclear Medicine and PET - [address] [address] 03/01/2024 8:00 EDT Appointment [facility] Radiology Nuclear Medicine and PET [address] [address] 03/01/2024 9:30 EDT Appointment [facility] Radiology Nuclear Medicine and PET [address] [address] documented as of this encounter Visit Diagnoses Not on filedocumented in this encounter Discontinued Medications Medication Sig Discontinue Reason Start Date End Da te gabapentin (NEURONTIN) 300 mg capsule Take 1 Cap by mouth daily. Take 1 cap in the evening. (In addition to 100mg gabapentin twice daily) Reorder 10/22/2020 12/04/2020 documented as of this encounter Care Teams Software Test And Validation Engineer Relationship Specialty Start Date End Date Carrington Calderon MD 1 [facility] 1 [place] [address] PCP - General Internal Medicine - Primary Care 12/09/20 documented as of this encounter
--- OUTSIDE RECORDS SUMMARY | 2024-01-02 06:13 | XMS_ITS | Encounter Summary ---
Author Organization [facility] Address [address] [place] [address] Care Team Providers Care Carpenter Assembler Name Role Phone Unavailable Primary Care Provider Unavailabl e Reason for Visit * Reason Onset Date Comments Medications Refill 12/05/2020 Encounter Details Date Type Department Care Team (Late st Contact Info) Description 12/05/2020 Refill [facility] Adult Primary Care - [address] [phone] Tonja Alejandro PA-C [address] [place] [address] [place] [phone] Medications Refill Social History Tobacco Use [...] 0823 EDT Medication(s) Requested: Lorazepam Preferred Pharmacy: [facility] Is patient out of medication? Yes Last Refill Date: 10.22.20 Last Visit Date with Ordering Provider: 11.04.20 Next Non-Acute Visit Date Scheduled with Care Team: No. Ethan Aquino 12/05/2020 8:23 documented in this encounter Plan of Treatment Upcoming Encounters Date Type Department Care Team (Late st Contact Info) Description 02/21/2024 9:45 EDT Office Visit [facility] Adult Primary Care - [address] [phone] Carrington Calderon MD [address] [phone] 02/27/2024 8:30 EDT Telemedicine [facility] Sleep Program - [address] [phone] Dwight Colbert [address] [place] [phone] 02/29/2024 10:30 EDT Appointment [facility] Radiology Nuclear Medicine and PET [address] [phone] 02/29/2024 14:30 EDT Appointment [facility] Radiology Nuclear Medicine and PET [address] [phone] 03/01/2024 8:00 EDT Appointment [facility] Radiology Nuclear Medicine and PET [address] [id number] 03/01/2024 9:30 EDT Appointment [facility] Radiology Nuclear Medicine and PET [address] [phone] documented as of this encounter Visit Diagnoses [...]
--- OUTSIDE RECORDS SUMMARY | 2024-01-02 06:13 | XMS_ITS | Encounter Summary ---
Author Organization [facility] Address [address] [place] [address] Care Team Providers Care Heel Finisher Name Role Phone Unavailable Primary Care Provider Unavailabl e Reason for Visit * Reason Onset Date Comments Back Pain 10/29/2020 Encounter Details Date Type Department Care Team (Late st Contact Info) Description 10/29/2020 Telephone [facility] Adult Primary Care - [address] [phone] Tonja Alejandro PA-C [facility] [address] [place] [phone] Back Pain Social History Tobacco [...] encounter Miscellaneous Notes * Telephone Encounter - Etahn Aquino - 10/30/2020 1002 EDT Patient called [...] [facility] Adult Primary Care - [address] 604641 Carrington Calderon MD [address] [place] [address] [address] [place] [phone] 02/27/2024 8:30 EDT Telemedicine [facility] Sleep Program - [address] [place] [address] ColbertDwight garner [address] [place], [place] [phone] 02/29/2024 10:30 EDT Appointment [facility] Radiology Nuclear Medicine and PET - [address] [phone] 02/29/2024 14:30 EDT Appointment [facility] Radiology Nuclear Medicine and PET - [address] [id number] 03/01/2024 8:00 EDT Appointment [facility] Radiology Nuclear Medicine and PET - [address] [phone] 03/01/2024 9:30 EDT [facility] Radiology Nuclear Medicine and PET - [address] [phone] documented as of this encounter Visit Diagnoses Not on filedocumented in this encounter
--- OUTSIDE RECORDS SUMMARY | 2024-01-02 06:13 | XMS_ITS | Encounter Summary ---
Author Organization [facility] Address [address] [place] [address] Care Team Providers Care Progressive Care Unit Registered Nurse Name Role Phone Unavailable Primary Care Provider Unavailabl e Reason for Visit * Reason Onset Date Comments Back Pain 10/21/2020 Encounter Details Date Type Department Care Team (Late st Contact Info) Description 10/21/2020 Telephone [facility] Adult Primary Care - [address] [phone] Caroline Skinner MD [address] [place] [address] Back Pain Social History Tobacco [...] Caroline Skinner MD - 10/21/2020 1910 EDT call center trainer message: arnold calling on her behalf. Severe [...] [facility] [address] [address] Carrington Calderon MD 1 [facility] 1 [place] [address] 02/27/2024 8:30 EDT Telemedicine [facility] Sleep Program - [address] [address] Dwight Colbert [address] [place] [phone] 02/29/2024 10:30 EDT [facility] Radiology Nuclear Medicine and PET - [address] [phone] 02/29/2024 14:30 EDT [facility] Radiology Nuclear Medicine and PET - [address] [id number] 03/01/2024 8:00 EDT [facility] Radiology Nuclear Medicine and PET - [address] [id number] 03/01/2024 9:30 EDT [facility] Radiology Nuclear Medicine and PET - [address] [phone] documented as of this encounter Visit Diagnoses Not on filedocumented in this encounter
--- OUTSIDE RECORDS SUMMARY | 2024-01-02 06:13 | XMS_ITS | Encounter Summary ---
Author Organization [facility] Address [address] [place] [address] Care Team Providers Care Oil Filters Inspector Name Role Phone Unavailable Primary Care Provider Unavailabl e Reason for Visit * Reason Onset Date Comments Prior Auth, Medication 10/23/2020 Encounter Details Date Type Department Care Team (Late st Contact Info) Description 10/23/2020 Telephone [facility] Adult Primary Care [address] 685251 Tonja Alejandro PA-C [address] [place] [address] [place] [phone] Prior Auth, Medication Social History Tobacco [...] Auth needed for Lidocaine 5% Patches Mejia: [id number] PA has been completed via [employer]. Awaiting decision Medication does not require a PA. Pharmacy notified documented in this encounter Plan of Treatment Upcoming Encounters Date Type Department Care Team (Late st Contact Info) Description 02/21/2024 9:45 EDT Office Visit [facility] Adult Primary Care [address] [address] Carrington Calderon MD 1 [facility] 1 [place] [address] 02/27/2024 8:30 EDT Telemedicine [facility] Sleep Program - [address] [address] Dwight Colbert [address] [place] [address] 02/29/2024 10:30 EDT [facility] Radiology Nuclear Medicine and PET - [address] [phone] 02/29/2024 14:30 EDT Appointment [facility] Radiology Nuclear Medicine and PET [address] [phone] 03/01/2024 8:00 EDT [facility]ointment [facility] Radiology Nuclear Medicine and PET - [address] [phone] 03/01/2024 9:30 EDT Appointment [facility] Rad[facility] Nuclear Medicine and PET [address] [phone] documented as of this encounter Visit Diagnoses Not on filedocumented in this encounter
--- OUTSIDE RECORDS SUMMARY | 2024-01-02 06:13 | XMS_ITS | Encounter Summary ---
Author Organization [facility] Address [address] [place] [address] Care Team Providers Care Receiving Operator Name Role Phone Unavailable Primary Care [...] 21:17 EDT - 12/07/2020 1:52 EDT Emergency [facility] Emergency Department - [address] [address] Fran Barbosa MD [address] [place] [address], Level [address] [place] [address] Andrés Garcia MD [address] [place] [phone] Nausea and vomiting, intractability of vomiting [...] through Care Everywhere. * Nausea and Vomiting (Italian) documented in this encounter Medications at Time [...] VIGNESH 2 READER) misc 1 Device [place] [facility] (non-drug; combo route) route continuous. 1 Each 10/01/2020 05/21/2022 flash glucose sensor (FREESTYLE VIGNESH 2 SENSOR) kit 1 Device by [facility] (non-drug; combo route) route continuous. 6 Kit [...] hyperglycemia, with long-term current use of insulin ([facility]) Use 1 pen needle as directed [...] Code Departure Means Destination Home or Self Alf documented in this encounter ED Notes * [...] of vomiting not specified, unspecified vomiting type MDM MDM Number of Diagnoses or Management Options Nausea [...] Info) Description 02/21/2024 9:45 EDT Office Visit [facility] Adult Primary Care - [address] [phone] Carrington Calderon MD [address] [phone] 02/27/2024 8:30 EDT Telemedicine [facility] Sleep Program - [address] [phone] Dwight Colbert [address] [place] [phone] 02/29/2024 10:30 EDT Appointment [facility] Radiology Nuclear Medicine and PET - [address] [phone] 02/29/2024 14:30 EDT Appointment [facility] Radiology Nuclear Medicine and PET [address] [address] 03/01/2024 8:00 EDT Appointment [facility] Radiology Nuclear Medicine and PET - [address] [address] 03/01/2024 9:30 EDT Appointment [facility] Radiology Nuclear Medicine and PET - [address] [phone] documented as of this encounter Procedures Procedure [...] EDT) 12/11/2020 16:3 7 EDT Scan 2 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 Machine Operator Helper PROCEDURE/MINOR BRAULIO GICAL ORDERABLES * (ABNORMAL) POCT URINE DIPSTICK, CLINITEK (12/07/2020 0:20 EDT) Color, UA Yellow Yellow 12/07/2020 0:26 [facility] Clarity, UA Clear Clear 12/07/2020 0:26 [facility] Glucose, UA 2+(A) Negative mg/dL 12/07/2020 0:26 [facility] Bilirubin, UA Negative Negative 12/07/2020 0:26 [facility] Ketones, UA 4+(AA) Negative mg/dL 12/07/2020 0:26 [facility] Specific [place], Urine 1.025 1.001 - 1.035 12/07/2020 0:26 [facility] Blood, UA Negative Negative 12/07/2020 0:26 [facility] pH, UA 7.0 <=8 12/07/2020 0:26 [facility] Protein, UA Negative Negative mg/dL 12/07/2020 0:26 [facility] Urobilinogen, UA 0.2 0.2 - 1.0 EU/dL 12/07/2020 0:26 EDT [facility] Nitrite, UA Negative Negative 12/07/2020 0:26 EDT [facility] Leuk Esterase Negative Negative 12/07/2020 0:26 EDT [facility] HN LAB COMMENT (CLINITEK, UR) Test performed at Emergency Department 12/07/2020 0:26 EDT [facility] Urine URINE SPECIMEN COLLECTION, CLEAN CATCH / Unknown 12/07/2020 0:20 EDT 12/07/2020 0:26 EDT Fran Barbosa MD POINT OF CARE TEST ORDERABLES Performing Organization Address [facility] Co de Phone Number [facility] [address] [place] [address] * POCT TEST, CLINITEK (12/07/2020 0:08 EDT) Pathologist [facility] UPT Result Negative Negative 12/07/2020 0:14 EDT [facility] HN LAB COMMENT (CLINITEK, UPT) Test performed at Emergency Department 12/07/2020 0:14 EDT [facility] Comment:False negative resul ts may occur in women who are beyond 5-8 weeks gestation. Diagnosis of should be based on a correlation of test results with typical clinical signs and symptoms. Urine URINE SPECIMEN COLLECTION, CLEAN CATCH / Unknown 12/07/2020 0:08 EDT 12/07/2020 0:14 EDT Fran Barbosa MD POINT OF CARE TEST ORDERABLES Performing Organization Address City/[facility] Co de Phone Number [facility] [address] [place] [address] * POCT CSN BARCODE URINE PREG TEST (12/07/2020 0:06 EDT) Urine URINE SPECIMEN COLLECTION, CLEAN CATCH / Unknown Urine Collect / Unknown 12/07/2020 0:06 EDT 12/07/2020 0:06 EDT Fran Barbosa MD LAB INFO SERV ICE AND SUPPORT & PHONE RESULT Performing Organization Address City/[facility]/ZIP Co de Phone Number [facility] [address] [place] [address] * POCT CSN BARCODE URINE DIPSTICK (12/07/2020 0:06 EDT) Urine URINE SPECIMEN COLLECTION, CLEAN CATCH / Unknown Urine Collect / Unknown 12/07/2020 0:06 EDT 12/07/2020 0:06 EDT Fran Barbosa MD LAB INFO SERV ICE AND SUPPORT & PHONE RESULT Performing Organization Address City/[facility]/ZIP Co de Phone Number [facility] [address] [place] [address] * (ABNORMAL) BASIC METABOLIC PANEL (BMP) (12/06/2020 23:42 EDT) Sodium 141 136 - 145 mEq/L 12/07/2020 0:08 [facility] Potassium 4.0 3.5 - 5.0 mEq/L 12/07/2020 0:08 [facility] Chloride 99 96 - 110 mEq/L 12/07/2020 0:08 [facility] CO2 Total 29 22 - 32 mEq/L 12/07/2020 0:08 [facility] Glucose 248(H) 70 - 100 mg/dL 12/07/2020 0:08 [facility] Calcium 9.8 8.5 - 10.5 mg/dL 12/07/2020 0:08 [facility] Calculated Calcium 9.9 8.5 - 10.5 mg/dL 12/07/2020 0:08 [facility] BUN 11 10 - 26 mg/dL 12/07/2020 0:08 [facility] Creatinine 0.45(L) 0.52 - 1.04 mg/dL 12/07/2020 0:08 [facility] eGFR 130 >60 mL/min/1.7 3m2 12/07/2020 0:08 [facility] Comment:eGFR calculated gil curtis CKD-EPI equation for non- Americans. Multiply eGFR by 1.16 for patients. Blood VENOUS BLOOD / Unknown Venipuncture / Unknown 12/06/2020 23:42 EDT 12/06/2020 23:45 EDT Fran Barbosa MD CHEMISTRY & B LOOD GAS ORDERABLES [facility] [address] [place] [address] * EKG 12-LEAD (12/06/2020 21:43 EDT) 12/06/2020 21:4 3 EDT Narrative [facility] EKG - 12/11/2020 16:34 EDT ?[facility] Emergency ? Test Date: ?2020-12-06 Pat Name: ? CRISTY LUO ?Department: ?? ED ? Room: ? AC07 Gender: ? Female ? 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 : ?[id number] ? Requested By: DARÍO GAYLE Order Number: [id number] ? Sammie MARTÍNEZ: ?? TRACE SAHUN MARTÍNEZ ? Measurements Intervals ?[place] ? Rate: ? 86 ? P: ?8 MN: ? 132 ?QRS: ?15 QRSD: ? 92 [...] Note Carolina Noyola MD - 12/11/2020 [facility] Emergency Test Date: 2020-12-06 Pat Name: CRISTY LUO Department: ED Room: [facility] Gender: Female Operating Engineer Apprentice: : 1985 Requested By: DARÍO SANCHEZ Order Number: [id number] Reading MD: CAROLINA NOYOLA MD Measurements Intervals [place] Rate: 86 P: 8 MN: 132 QRS: 15 QRSD: 92 T: -8 [...] CARDIAC ECG O RDERABLES Performing Organization Address City/[facility] Co de Phone Number [facility] EKG * (ABNORMAL) BETA HYDROXYBUTYRATE (12/06/2020 21:30 EDT) Pathologist [facility] Beta Hydroxybutyrate 2.0(H) <0.4 mmol/L 12/06/2020 22:19 EDT [facility] Blood VENOUS BLOOD / Unknown Venipuncture / Unknown 12/06/2020 21:30 EDT 12/06/2020 21:35 EDT Fran Barbosa MD CHEMISTRY & B LOOD GAS ORDERABLES Performing Organization Address [facility] Co de Phone Number [facility] [address] [place] [address] * LIPASE (12/06/2020 21:30 EDT) [facility] Lipase 97 <251 U/L 12/06/2020 22:06 EDT [facility] Blood VENOUS BLOOD / Unknown Venipuncture / Unknown 12/06/2020 21:30 EDT 12/06/2020 21:35 EDT Fran Barbosa MD CHEMISTRY & B LOOD GAS ORDERABLES Performing Organization Address [facility] de Phone Number [facility] [address] [place] [address] * (ABNORMAL) COMPREHENSIVE METABOLIC PANEL (CMP) (12/06/2020 21:30 EDT) Pathologist [facility] Sodium 142 136 - 145 mEq/L 12/06/2020 22:06 EDT [facility] Potassium 3.8 3.5 - 5.0 mEq/L 12/06/2020 22:06 [facility] Chloride 97 96 - 110 mEq/L 12/06/2020 22:06 [facility] CO2 Total 26 22 - 32 mEq/L 12/06/2020 22:06 [facility] Glucose 288(H) 70 - 100 mg/dL 12/06/2020 22:06 [facility] BUN 12 10 - 26 mg/dL 12/06/2020 22:06 [facility] Creatinine 0.50(L) 0.52 - 1.04 mg/dL 12/06/2020 22:06 [facility] eGFR 126 >60 mL/min/1.7 3m2 12/06/2020 22:06 [facility] Comment:eGFR calculated gil curtis CKD-EPI equation for non- Americans. Multiply eGFR by 1.16 for patients. Total Protein 7.7 6.3 - 8.2 g/dL 12/06/2020 22:06 [facility] Albumin 4.9 3.4 - 4.9 g/dL 12/06/2020 22:06 [facility] Alkaline Phosphatase 105 38 - 126 U/L 12/06/2020 22:06 [facility] AST 22 15 - 46 U/L 12/06/2020 22:06 [facility] ALT 21 <35 U/L 12/06/2020 22:06 [facility] Bilirubin, Total <0.5 <1.4 mg/dL 12/07/19 22:06 [facility] Calcium 10.6(H) 8.5 - 10.5 mg/dL 12/06/2020 22:06 [facility] Calculated Calcium 9.9 8.5 - 10.5 mg/dL 12/06/2020 22:06 [facility] Blood VENOUS BLOOD / Unknown Venipuncture / Unknown 12/06/2020 21:30 EDT 12/06/2020 21:35 EDT Fran Barbosa MD CHEMISTRY & B LOOD GAS ORDERABLES [facility] [address] [place] [address] * (ABNORMAL) COMPLETE BLOOD COUNT AND DIFFERENTIAL (12/06/2020 21:30 EDT) WBC 14.54(H) 4.00 - 12.40 K/cmm 12/06/2020 21:47 [facility] RBC 4.97 3.86 - 5.04 M/cmm 12/06/2020 21:47 [facility] Hemoglobin 15.5(H) 11.6 - 15.2 gm/dL 12/06/2020 21:47 [facility] HCT 42.8 34.9 - 44.4 % 12/06/2020 21:47 [facility] MCV 86 81 - 98 fl 12/06/2020 21:47 [facility] MCH 31.2 26.7 - 33.3 pg 12/06/2020 21:47 [facility] MCHC 36.2(H) 32.1 - 35.9 gm/dL 12/06/2020 21:47 [facility] RDW-CV 12.2 <14.7 % 12/06/2020 21:47 [facility] RDW-SD 38.5 <50.4 fl 12/06/2020 21:47 [facility] PLT 383(H) 141 - 377 K/cmm 12/06/2020 21:47 [facility] MPV 9.7 9.5 - 12.7 fl 12/06/2020 21:47 [facility] % Neutrophils 84.9 % 12/06/2020 21:47 [facility] % Lymphocytes 10.7 % 12/06/2020 21:47 [facility] % Monocytes 4.0 % 12/06/2020 21:47 [facility] % Eosinophils 0.0 % 12/06/2020 21:47 [facility] % Basophils 0.1 % 12/06/2020 21:47 [facility] % Immature Grans 0.3 % 12/07/19 21:47 [facility] Absolute Neutrophils 12.34(H) 2.20 - 8.85 K/cmm 12/06/2020 21:47 [facility] Absolute Lymphocytes 1.55 1.09 - 3.30 K/cmm 12/06/2020 21:47 [facility] Absolute Monocytes 0.58 0.10 - 0.80 K/cmm 12/06/2020 21:47 [facility] Absolute Eosinophils 0.00(L) 0.03 - 0.61 K/cmm 12/06/2020 21:47 [facility] ABS Basophils 0.02 0.01 - 0.11 K/cmm 12/06/2020 21:47 [facility] Absolute Immature Grans 0.05 0.00 - 0.06 K/cmm 12/06/2020 21:47 [facility] Type of Differential: Auto 12/06/2020 21:47 [facility] Blood VENOUS BLOOD / Unknown Venipuncture / Unknown 12/06/2020 21:30 EDT 12/06/2020 21:35 EDT Fran Barbosa MD PACKAGES & DN A PROBE ORDERABLES Performing Organization Address [facility]/State/[facility] Co de Phone Number [facility] [address] [place] [address] * BLOOD BANK HOLD (12/06/2020 21:30 EDT) Hold BB Spec will exp at 23:59, 3 days from collect date 12/06/2020 21:54 [facility] Blood VENOUS BLOOD / Unknown Venipuncture / Unknown 12/06/2020 21:30 EDT 12/06/2020 21:37 EDT Fran Barbosa MD BLOOD BANK TE STS [facility] BLOOD BANK [address] [place] [address] * HOLD SST (12/06/2020 21:30 EDT) Hold Hold 12/06/2020 22:45 EDT [facility] Blood VENOUS BLOOD / Unknown Venipuncture / Unknown 12/06/2020 21:30 EDT 12/06/2020 21:35 EDT Fran Barbosa MD LAB INFO SERV ICE AND SUPPORT & PHONE RESULT [facility] [address] [place] [address] * HOLD LAVENDER TOP (12/06/2020 21:30 EDT) Hold Hold 12/06/2020 22:45 EDT [facility] Blood VENOUS BLOOD / Unknown Venipuncture / Unknown 12/06/2020 21:30 EDT 12/06/2020 21:35 EDT Fran Barbosa MD LAB INFO SERV ICE AND SUPPORT & PHONE RESULT Performing Organization Address City/[facility]/ZIP Co de Phone Number [facility] [address] [place] [address] * HOLD GREEN TOP (12/06/2020 21:30 EDT) Hold Hold 12/06/2020 22:45 EDT [facility] Blood VENOUS BLOOD / Unknown Venipuncture / Unknown 12/06/2020 21:30 EDT 12/06/2020 21:35 EDT Fran Barbosa MD LAB INFO SERV ICE AND SUPPORT & PHONE RESULT [facility] [address] [place] [address] * HOLD BLUE TOP (12/06/2020 21:30 EDT) Hold Hold 12/06/2020 22:45 EDT [facility] Blood VENOUS BLOOD / Unknown Venipuncture / Unknown 12/06/2020 21:30 EDT 12/06/2020 21:35 EDT Fran Barbosa MD LAB INFO SERV ICE AND SUPPORT & PHONE RESULT [facility] [address] [place] [address] * (ABNORMAL) POCT GLUCOSE, INTERFACED (12/06/2020 21:13 EDT) Glucose, POC 304(H) 70 - 100 mg/dL 12/06/2020 21:17 EDT [facility] HN LAB POC COMMENT (GLUCOSE) Test Performed by Nursing Services 12/06/2020 21:17 EDT [facility] Blood CAPILLARY BLOOD / Unknown 12/06/2020 21:13 EDT 12/06/2020 21:17 EDT Provider Unknown POINT OF CARE TEST O RDERABLES Performing Organization Address City/[facility]/ZIP Co de Phone Number [facility] [address] [place] [address] documented in this encounter Visit Diagnoses Diagnosis [...] Megha Dc RN)[id number] (Completed - Provider: Leidy Martínez, RN) lactated ringers BOLUS 1,000 mL (COMPLETED) [...]
--- OUTSIDE RECORDS SUMMARY | 2024-01-02 06:13 | XMS_ITS | Encounter Summary ---
Author Organization [facility] Address [address] [place] [address] Care Team Providers Care Metrologist Name Role Phone Unavailable Primary Care Provider Unavailabl e Reason for Visit * Reason Comments Back Pain Encounter Details Date Type Department Care Team (Late st Contact Info) Description 11/04/2020 14:15 EDT Office Visit [facility] Adult Primary Care - [address] [phone] Tonja Alejandro PA-C [address] [place] [address] [place] [phone] Chronic midline low back pain with [...] the lumbarspine. We will get done at [place] [facility] -Continue physical therapy Tonja Alejandro PA-C [facility]/04/2020 14:45 I spent a [...] Visit [facility] Adult Primary Care [address] [phone] Carrington Calderon MD [address] [phone] 02/27/2024 8:30 EDT Telemedicine [facility] Sleep Program - [address] [address] Dwight Colbert [address] [place] [phone] 02/29/2024 10:[address] [facility] Nuclear Medicine and PET - [address] [phone] 02/29/2024 14:30 EDT Appointment [facility] Radiology Nuclear Medicine and PET - [address] [phone] 03/01/2024 8:00 EDT Appointment [facility] Radiology Nuclear Medicine and PET - [address] [address] 03/01/2024 9:30 EDT Appointment [facility] Nuclear Medicine and PET [address] [address] documented as of this encounter Visit Diagnoses [...]
--- OUTSIDE RECORDS SUMMARY | 2024-01-02 06:13 | XMS_ITS | Encounter Summary ---
Author Organization [facility] Address [address] [place] [address] Care Team Providers Care Incident Coordinator Name Role Phone Unavailable Primary Care Provider Unavailabl e Reason for Referral * PT/OT/ST (Routine) - Closed Specialty Diagnoses / Procedures Referred By Contac t Referred To Contact Diagnoses Acute right-sided low back pain with sciatica, sciatica laterality unspecified Moshe Ferrer MD [address] [place] [phone] Gay Hyman, PT [id number] [place] [address] Referral ID Status Reason Start Date Expiration Date V isits Requested Visits Authorized [id number] Closed Specialty Services Required 10/22/2020 1 1 Question Answer Reason for Request: acute on chronic low back pain, history of emotional trauma Reason for Visit * Reason Comments Back Pain right lower back kuldeep n radiating down right lower limb. Encounter Details Date Type Department Care Team (Late st Contact Info) Description 10/22/2020 10:00 EDT Office Visit [facility] Adult Primary [facility] - [place] [address] [place], [place] [address] Linnea Patel MD [address] [place] [phone] Acute right-sided low back pain with sciatica, [...] Linnea Patel MD - 10/22/2020 1000 EDT [place] [facility] Patient Name: [...] in the resident's note. Moshe Ferrer MD [facility] software developer mid level documented in this encounter Plan of Treatment Upcoming Encounters Date Type Department Care Team (Late st Contact Info) Description 02/21/2024 9:45 EDT Office Visit [facility] Adult Primary Care - [address] 064821 Carrington Calderon MD 1 [facility] 1 [place] [phone] 02/27/2024 8:30 EDT Telemedicine [facility] Sleep Program - [address] 701251 Dwight Colbert [address] [place] [phone] 02/29/2024 10:30 EDT Appointment [facility] Radiology Nuclear Medicine and PET - [address] [phone] 02/29/2024 14:30 EDT Appointment [facility] Radiology Nuclear Medicine and PET - [address] [address] 03/01/2024 8:00 EDT Appointment [facility] Radiology Nuclear Medicine and PET [address] [address] 03/01/2024 9:30 EDT Appointment [facility] Radiology Nuclear Medicine and PET [address] [address] Scheduled Referrals Name Type Priority Associated Diagnoses [...]
--- OUTSIDE RECORDS SUMMARY | 2024-01-02 06:13 | XMS_ITS | Encounter Summary ---
Author Organization [facility] Address [address] [place] [address] Care Team Providers Care Home Health Speech [...] [facility] Adult Primary Care - [address] 110671 Carrington Calderon MD [address] [phone] 02/27/2024 8:30 EDT Telemedicine [facility] Sleep Program - [address] [phone] Dwight Colbert [address] [place] [address] 02/29/2024 10:[address] [facility] Radiology Nuclear Medicine and PET - [address] 408281 02/29/2024 14:[address] [facility] Radiology Nuclear Medicine and PET - [address] [address] 03/01/2024 8:00 EDT [facility]ointment [facility] Radiology Nuclear Medicine and PET - [address] [address] 03/01/2024 9:30 EDT Appointment [facility] Radiology Nuclear Medicine and PET - [address] [address] documented as of this encounter Visit Diagnoses Not on filedocumented in this encounter
--- OUTSIDE RECORDS SUMMARY | 2024-01-02 06:13 | XMS_ITS | Encounter Summary ---
Author Organization [facility] Address [address] [place] [address] Care Team Providers Care Rn Training Name Role Phone Unavailable Primary Care Provider [...] [facility] - [address] [phone] Carrington Calderon MD 1 [facility] 1 [place] [address] 02/27/2024 8:30 EDT Telemedicine [facility] Sleep Program - [address] 596191 Dwight Colbert [address] [place] [phone] 02/29/2024 10:30 EDT Appointment [facility] Radiology Nuclear Medicine and PET - [address] 128161 02/29/2024 14:30 EDT Appointment [facility] Radiology Nuclear Medicine and PET - [address] [address] 03/01/2024 8:00 EDT [facility]ment [facility] Radiology Nuclear Medicine and PET - [address] [address] 03/01/2024 9:30 EDT [facility]ointment [facility] Radiology Nuclear Medicine and PET - [address] [address] documented as of this encounter Visit Diagnoses Not on filedocumented in this encounter
--- OUTSIDE RECORDS SUMMARY | 2024-01-02 06:13 | XMS_ITS | Encounter Summary ---
Author Organization [facility] Address [address] [place] [address] Care Team Providers Care Mental Health Specialist Name Role Phone Unavailable Primary Care Provider Unavailabl e Reason for Visit * Reason Onset Date Comments Medication Questions 10/09/2020 Encounter Details Date Type Department Care Team (Late st Contact Info) Description 10/09/2020 Telephone [facility] Adult Primary Care - [address] 717551 Tonja Alejandro PA-C [address] [place] [address] [address] [place] [phone] Medication Questions Social History Tobacco [...] encounter Miscellaneous Notes * Telephone Encounter - Tnoja Alejandro PA-C - 10/21/2020 5362 EDT See previous notes. Spoke with patient [facility] [address] 499751 Carrington Calderon MD [address] [phone] 02/27/2024 8:30 EDT Telemedicine [facility] Sleep Program - [address] [address] Dwight Colbert [address] [place] [address] 02/29/2024 10:30 EDT Appointment [facility] Radiology Nuclear Medicine and PET - [address] [phone] 02/29/2024 14:30 EDT [facility]ment [facility] PET - [address] 582121 03/01/2024 8:00 EDT Appointment [facility] Radiology Nuclear Medicine and PET - [address] 268121 03/01/2024 9:30 EDT Appointment [facility] Radiology Nuclear [place] [address] documented as of this encounter Visit Diagnoses Not on filedocumented in this encounter
--- OUTSIDE RECORDS SUMMARY | 2024-01-02 06:13 | XMS_ITS | Encounter Summary ---
Author Organization [facility] Address [address] [place] [address] Care Team Providers Care Technical Director Name Role Phone Unavailable Primary Care Provider Unavailabl e Encounter Details Date Type Department Care Team (Late st Contact Info) Description 10/10/2020 Orders Only [facility] Adult Primary Care - [address] 889121 Tonja Alejandro PA-C [address] [place] [address] [place] [phone] Social History Tobacco Use Types Packs/Day [...] Info) Description 02/21/2024 9:45 EDT Office Visit [facility] Adult Primary Care - [address] [phone] Carrington Calderon MD [address] [phone] 02/27/2024 8:30 EDT Telemedicine [facility] Sleep Program - [address] 723301 Dwight Colbert [address] [place] [phone] 02/29/2024 10:30 EDT Appointment [facility] Radiology Nuclear Medicine and PET - [address] 842241 02/29/2024 14:30 EDT [facility]ment [facility] and PET - [address] [phone] 03/01/2024 8:00 EDT Appointment [facility] Radiology Nuclear Medicine and PET - [address] [phone] 03/01/2024 9:30 EDT Appointment [facility] Radiology Nuclear Medicine and PET [address] [phone] documented as of this encounter Visit Diagnoses Not on filedocumented in this encounter Discontinued Medications Medication Sig Discontinue Reason Start Date End Da te haloperidoL (HALDOL) 5 mg tablet Take 1 Tab by mouth daily as needed for Nausea. Alternate therapy 10/01/2020 10/10/2020 documented as of this encounter
--- OUTSIDE RECORDS SUMMARY | 2024-01-02 06:13 | XMS_ITS | Encounter Summary ---
Author Organization [facility] Address [address] [place] [address] Care Team Providers Care Senior Javascript Developer Name Role Phone Unavailable Primary Care [...] [facility] Adult Primary Care - [address] 957671 Carrington Calderon MD 1 [facility] 1 [place] [phone] 02/27/2024 8:30 EDT Telemedicine [facility] Sleep Program - [address] [phone] Dwight Colbert [address] [place] [phone] 02/29/2024 10:30 EDT Appointment [facility] Radiology Nuclear Medicine and PET - [address] [phone] 02/29/2024 14:30 EDT Appointment [facility] Radiology Nuclear Medicine and PET - [address] [address] 03/01/2024 8:00 EDT Appointment [facility] Radiology Nuclear Medicine and PET - [address] [address] 03/01/2024 9:30 EDT Appointment [facility] Radiology Nuclear Medicine and PET [address] [address] documented as of this encounter Visit Diagnoses Not on filedocumented in this encounter
--- OUTSIDE RECORDS SUMMARY | 2024-01-02 06:14 | XMS_ITS | Encounter Summary ---
Author Organization [facility] Address [address] [place] [address] Care Team Providers Care Pole Truck Driver Name Role Phone Unavailable Primary Care Provider Unavailabl e Reason for Visit * Reason Onset Date Comments Medications Refill 09/02/2020 Encounter Details Date Type Department Care Team (Late st Contact Info) Description 09/02/2020 Refill [facility] Endocrinology - [facility] [address] [place], [place] [phone] Sara Zafar NP 62 [facility] [address] [place] [phone] Medications Refill Social History Tobacco [...] hyperglycemia, with long-term current use of insulin ([facility]) Use 1 pen needle as directed 4 times daily. 400 Each 2 09/02/2020 03/16/2023 documented in this encounter Miscellaneous Notes * Telephone Encounter - Valencia Correia - 09/02/2020 1244 EDT Medication(s) Requested patient was supposed to have 8mm (31g) pen needles called s/p her last appointment. Screw on tips. Pharmacy [id number] - [place], [place] - [facility] [address]?[phone] Next Visit Date Visit date not found Out of Medication? Yes none left Valencia Correia 09/02/2020 12:44 documented in this encounter Plan of Treatment Upcoming Encounters Date Type Department Care Team (Late st Contact Info) Description 02/21/2024 9:45 EDT Office Visit [facility] Adult Primary Care - [address] [phone] Carrington Calderon MD [address] [phone] 02/27/2024 8:30 EDT Telemedicine [facility] Sleep Program - [address] [address] Dwight Colbert [address] [place] [address] [phone] 02/29/2024 10:[address] [facility] Radiology Nuclear Medicine and PET - [address] [phone] 02/29/2024 14:[address] [facility] Radiology Nuclear Medicine and PET - [address] 171491 03/01/2024 8:[address] [facility] Radiology Nuclear Medicine and PET - [address] [phone] 03/01/2024 9:[address] [facility] Radiology Nuclear Medicine and PET - [address] [phone] documented as of this encounter Visit Diagnoses Diagnosis Type 2 diabetes mellitus with hyperglycemia, with long-term current use of insulin ([facility])- Primary documented in this encounter
--- OUTSIDE RECORDS SUMMARY | 2024-01-02 06:14 | XMS_ITS | Encounter Summary ---
Author Organization [facility] Address [address] [place] [address] Care Team Providers Care Marine Services Technician Name Role Phone Unavailable Primary Care Provider Unavailabl e Reason for Visit * Reason Comments Post-OP Follow Up Encounter Details Date Type Department Care Team (Late st Contact Info) Description 09/04/2020 16:15 EDT Post-op Visit [facility] [address] [address] [place] [address] [place]Y [phone] Dysuria (Primary Dx) [...] 1615 EDT Department of Obstetrics and Gynecology [facility] CC: Postop follow-up Procedure: Laparoscopic bilateral [...] established with PCP but interested in annual MANAGER LATIN with [facility] - Recommend scheduling visit for annual in [address] Alfonso. Clarke Joseph MD Obstetrics and Gynecology, PGY-2 Pager #[phone] 09/04/20 16:35 * Cristy Alfonso MD MPH - 09/04/2020 0385 EDT Attestation statement: I discussed the patient with the resident/fellow at the time of the visit. Iagree with the findings and the plan of care documented in the resident's/fellow's note. documented in this encounter Plan of Treatment Upcoming Encounters Date Type Department Care Team (Late st Contact Info) Description 02/21/2024 9:[address] [facility] Adult Primary Care - [address] 174441 Carrington Calderon MD [address] [phone] 02/27/2024 8:[address] [facility] Sleep Program - [address] [phone] Dwight Colbert [address] [place] [address] [phone] 02/29/2024 10:30 EDT Appointment [facility] Radiology Nuclear Medicine and PET [address] 426361 02/29/2024 14:30 EDT Appointment [facility] Radiology Nuclear Medicine and [address] [phone] 03/01/2024 8:00 EDT Appointment [facility] Radiology Nuclear Medicine and PET [address] [phone] 03/01/2024 9:30 EDT Appointment [facility] Radiology Nuclear Medicine and PET [address] [phone] documented as of this encounter Procedures Procedure Name Priority Date/Time Associated Diagnosis Comments URINE CHEMICAL (DIP) & SEDIMENT (MICRO) WITH REFLEX TO CULTURE Routine 09/04/2020 16:57 EDT Dysuria BACTERIAL CULTURE, URINE Today 09/04/2020 16:57 EDT Dysuria documented in this encounter Results * BACTERIAL CULTURE, URINE (09/04/2020 16:57 EDT) Organism ID Less than 10,000 CFU/ml Usual urogenital candis. 09/06/2020 10:45 [facility] Urine URINE SPECIMEN COLLECTION, CLEAN CATCH / Unknown Urine Collect / Unknown 09/04/2020 16:57 EDT 09/04/2020 17:53 EDT Cristy Alfonso MD MPH MICROBIOLOGY - GENERAL ORDERABLES [facility] [address] [place] [address] * (ABNORMAL) URINE CHEMICAL (DIP) & SEDIMENT (MICRO) WITH REFLEX TO CULTURE (09/04/2020 16:57 EDT) Color UA Yellow Colorless, Yellow 09/04/2020 17:53 [facility] Clarity UA Clear Clear 09/04/2020 17:53 [facility] Glucose UA Negative Negative 09/04/2020 17:53 [facility] Bilirubin UA Negative Negative 09/04/2020 17:53 [facility] Ketones UA Trace(A) Negative 09/04/2020 17:53 [facility] Specific [place], Urine 1.032 1.001 - 1.035 09/04/2020 17:53 [facility] Blood UA Negative Negative 09/04/2020 17:53 [facility] Urobilinogen UA 3(A) Normal mg/dL 09/04/2020 17:53 [facility] Nitrite UA Negative Negative 09/04/2020 17:53 [facility] Leukocyte Esterase UA Trace(A) Negative 09/04/2020 17:53 [facility] Protein UA 1+(A) Negative 09/04/2020 17:53 [facility] pH, UA 6.5 4.6 - 8.0 09/04/2020 17:53 [facility] Urine RBC Count, Auto 3 - 10(A) 0 - 2 Cells/HPF 09/04/2020 17:53 EDT [facility] Urine WBC Count, Auto 11 - 50(A) 0 - 3 Cells/HPF 09/04/2020 17:53 EDT [facility] Urine Squamous Count, Auto Many(A) None Seen Cells/HPF 09/04/2020 17:53 EDT [facility] Urine Hyaline Cast Count, Auto <=10 <=10 Casts/LPF 09/04/2020 17:53 T [facility] Urine Bacteria Count, Auto Few(A) None Seen Bacteria/HP F 09/04/2020 17:53 EDT [facility] Urine URINE SPECIMEN COLLECTION, CLEAN CATCH / Unknown Urine Collect / Unknown 09/04/2020 16:57 EDT 09/04/2020 17:03 EDT Narrative [facility] - 09/04/2020 17:53 EDT A Urine Culture test has been reflexively ordered based on result criteria from the Urine Sediment Analysis. Urine Sediment Analysis results are unreliable on urines that are unrefrigerated for >2 hrs or refrigerated >8 hrs. Cristy Alfonso MD MPH URINALYSIS ORD ERABLES [facility] [address] [place] [address] documented in this encounter Visit Diagnoses Diagnosis Dysuria- Primary documented in this encounter
--- OUTSIDE RECORDS SUMMARY | 2024-01-02 06:14 | XMS_ITS | Encounter Summary ---
Author Organization [facility] Address [address] [place] [address] Care Team Providers Care Crystal Inspector Name Role Phone Unavailable Primary Care Provider Unavailabl e Reason for Visit * Reason Onset Date Comments Hospital Discharge Follow Up 08/21/2020 Encounter Details Date Type Department Care Team (Late st Contact Info) Description 08/21/2020 Telephone [facility] Adult Primary Care - [address] [phone] Benita Thompson, MARCELO Hospital Discharge Follow Up [...] Encounter - Benita Thompson RN - 08/21/2020 5247 EDT Hospital Discharge Follow Up: Same Day Surgery 08/20/20 Risk Assessment: high 44 Reason for admission: Laparoscopic bilateral salpingectomy Symptoms improving? Pain level 8.5-9/10. She only tolerates OTC Tylenol. Patient is aware to contact OBGYN for pain management. Discharge instructions available? yes Medications Reviewed/prescriptions filled? 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 Yes-spouse Home [...] [facility] Adult Primary Care - [address] [phone] Carrington Calderon MD [address] [phone] 02/27/2024 8:30 EDT Telemedicine [facility] Sleep Program - [address] 963001 Dwight Colbert [address] [place] [address] [phone] 02/29/2024 10:30 EDT Appointment [facility] Radiology Nuclear Medicine and PET [address] [phone] 02/29/2024 14:30 EDT Appointment [facility] Radiology Nuclear Medicine and PET [address] [phone] 03/01/2024 8:00 EDT [facility]ment [facility] Radiology Nuclear Medicine and PET - [address] [phone] 03/01/2024 9:30 EDT Appointment [facility] Radiology Nuclear Medicine and PET [address] [phone] documented as of this encounter Visit Diagnoses Not on filedocumented in this encounter
--- OUTSIDE RECORDS SUMMARY | 2024-01-02 06:14 | XMS_ITS | Encounter Summary ---
Author Organization [facility] Address [address] [place] [address] Care Team Providers Care Parimutuel Cashier Name Role Phone Unavailable Primary Care Provider [...] 11:05 EDT - 10/01/2020 15:04 EDT Emergency [facility] Emergency Department - Main [place] [address] [place], [place] [address] Aubrey Javed, MARY [address] [place], [place] [id number] Non-intractable vomiting with nausea, unspecified vomiting type [...] hyperglycemia, with long-term current use of insulin ([facility]) Use 1 pen needle as directed [...] Code Departure Means Destination Home or Self Intermediate documented in this encounter ED Notes * Aubrey Javed PA-C - 10/01/2020 5650 EDT DOS: 10/01/2020 Chief Complaint Patient presents [...] hot showers, but is too weak to bariatric program coordinator the shower for very long today. Patient [...] gotten relief with outpatient oral Haldol from [facility]. patient is currently not vomiting and tolerating p.o. intake. Although she is nervous about going home and having to come back, she agrees to try oral Haldol at home. She will continue to work on eliminating THC. We discussed the fact that this would probably have to be for several months before we would expect her symptoms to resolve if this is [facility]. She will return for uncontrolled symptoms. Final [...] the Emergency Department: Stable PCP: Tonja Alejandro [facility] Number of Diagnoses or Management Options [...] Visit [facility] Adult Primary Care [address] [address] Carrington Calderon MD 1 [facility] [address] [place] [address] 02/27/2024 8:30 EDT Telemedicine [facility] Sleep Program - [address] 006201 Dwight Colbert [address] [place] [address] 02/29/2024 10:30 EDT Appointment [facility] Radiology Nuclear Medicine and [address] [id number] 02/29/2024 14:30 EDT Appointment [facility] Radiology Nuclear Medicine and [address] [id number] 03/01/2024 8:00 EDT Appointment [facility] Radiology Nuclear Medicine and [address] [id number] 03/01/2024 9:30 EDT Appointment [facility] Radiology Nuclear Medicine and [address] [address] documented as of this encounter Procedures Procedure Name Priority Date/Time Associated Diagnosis Comments COMPLETE BLOOD COUNT AND DIFFERENTIAL STAT 10/01/2020 11:51 EDT BASIC METABOLIC PANEL (BMP) STAT 10/01/2020 11:51 EDT POCT GLUCOSE, INTERFACED Routine 10/01/2020 11:14 EDT documented in this encounter Results * (ABNORMAL) COMPLETE BLOOD COUNT AND DIFFERENTIAL (10/01/2020 11:51 EDT) [facility] Signature WBC 14.04(H) 4.00 - 12.40 K/cmm 10/01/2020 12:28 EDT [facility] RBC 4.42 3.86 - 5.04 M/cmm 10/01/2020 12:28 [facility] Hemoglobin 14.1 11.6 - 15.2 gm/dL 10/01/2020 12:28 [facility] HCT 38.2 34.9 - 44.4 % 10/01/2020 12:28 [facility] MCV 86 81 - 98 fl 10/01/2020 12:28 [facility] MCH 31.9 26.7 - 33.3 pg 10/01/2020 12:28 [facility] MCHC 36.9(H) 32.1 - 35.9 gm/dL 10/01/2020 12:28 [facility] RDW-CV 12.4 <14.7 % 10/01/2020 12:28 [facility] RDW-SD 39.3 <50.4 fl 10/01/2020 12:28 [facility] PLT 380(H) 141 - 377 K/cmm 10/01/2020 12:28 [facility] MPV 9.6 9.5 - 12.7 fl 10/01/2020 12:28 [facility] % Neutrophils 71.0 % 10/01/2020 12:28 [facility] % Lymphocytes 21.1 % 10/01/2020 12:28 [facility] % Monocytes 6.9 % 10/01/2020 12:28 [facility] % Eosinophils 0.2 % 10/01/2020 12:28 [facility] % Basophils 0.4 % 10/01/2020 12:28 [facility] % Immature Grans 0.4 % 10/02/19 12:28 [facility] Absolute Neutrophils 9.97(H) 2.20 - 8.85 K/cmm 10/01/2020 12:28 [facility] Absolute Lymphocytes 2.96 1.09 - 3.30 K/cmm 10/01/2020 12:28 [facility] Absolute Monocytes 0.97(H) 0.10 - 0.80 K/cmm 10/01/2020 12:28 [facility] Absolute Eosinophils 0.03 0.03 - 0.61 K/cmm 10/01/2020 12:28 [facility] ABS Basophils 0.06 0.01 - 0.11 K/cmm 10/01/2020 12:28 [facility] Absolute Immature Grans 0.05 0.00 - 0.06 K/cmm 10/01/2020 12:28 [facility] Type of Differential: Auto 10/01/2020 12:28 [facility] Blood VENOUS BLOOD / Unknown Venipuncture / Unknown 10/01/2020 11:51 EDT 10/01/2020 11:57 EDT Aubrey Javed PA-C PACKAGES & DNA PROBE ORDERABLES [facility] [address] [place] [address] * (ABNORMAL) BASIC METABOLIC PANEL (BMP) (10/01/2020 11:51 EDT) Sodium 138 136 - 145 mEq/L 10/01/2020 12:23 [facility] Potassium 3.5 3.5 - 5.0 mEq/L 10/01/2020 12:23 [facility] Chloride 98 96 - 110 mEq/L 10/01/2020 12:23 [facility] CO2 Total 27 22 - 32 mEq/L 10/01/2020 12:23 [facility] Glucose 218(H) 70 - 100 mg/dL 10/01/2020 12:23 [facility] Calcium 9.4 8.5 - 10.5 mg/dL 10/01/2020 12:23 [facility] Calculated Calcium 9.3 8.5 - 10.5 mg/dL 10/01/2020 12:23 [facility] BUN 13 10 - 26 mg/dL 10/01/2020 12:23 EDT [facility] Creatinine 0.52 0.52 - 1.04 mg/dL 10/01/2020 12:23 EDT [facility] eGFR 124 >60 mL/min/1.7 3m2 10/01/2020 12:23 EDT [facility] Comment:eGFR calculated gil curtis CKD-EPI equation for non- Americans. Multiply eGFR by 1.16 for patients. Blood VENOUS BLOOD / Unknown Venipuncture / Unknown 10/01/2020 11:51 EDT 10/01/2020 11:57 EDT Aubrey Javed PA-C CHEMISTRY & BLOOD GA S ORDERABLES Performing Organization Address [facility] Co de Phone Number [facility] [address] [place] [address] * (ABNORMAL) POCT GLUCOSE, INTERFACED (10/01/2020 11:14 EDT) [facility] Signature Glucose, POC 167(H) 70 - 100 mg/dL 10/01/2020 11:15 EDT [facility] [place] line rider ID [id number] 10/01/2020 11:15 EDT [facility] HN LAB POC COMMENT (GLUCOSE) Test Performed by Nursing Services 10/01/2020 11:15 EDT [facility] Blood CAPILLARY BLOOD / Unknown 10/01/2020 11:14 EDT 10/01/2020 11:15 EDT Aubrey Javed PA-C POINT OF CARE TEST O RDERABLES Performing Organization Address [facility] Co de Phone Number [facility] [address] [place] [address] documented in this encounter Visit Diagnoses Diagnosis [...]
--- OUTSIDE RECORDS SUMMARY | 2024-01-02 06:14 | XMS_ITS | Encounter Summary ---
Author Organization [facility] Address [address] [place] [address] Care Team Providers Care Survey Research Analyst Name Role Phone Unavailable Primary Care [...] 7:17 EDT - 09/30/2020 12:44 EDT Emergency [facility] Emergency Department - Main [address] [id number] Doris Moreno MD 111 [facility], Level [address] [place] [address] Gastroparesis (Primary Dx); Non-intractable vomiting, [...] be sent through Care Everywhere. * Gastroparesis (Stateless) * Nausea and Vomiting (Stateless) documented in this encounter Medications at Time [...] FLORA 2 READER) mis 1 Device by [facility] (non-drug; combo route) route continuous. 1 Each [...] hyperglycemia, with long-term current use of insulin ([facility]) Use 1 pen needle as directed [...] Code Departure Means Destination Home or Self Retirement documented in this encounter ED Notes * [...] exam for emergent medical conditions at the [facility] on 09/30/2020 Scribe attestation: [...] Glucose, POC 316 (*) Final Tech ID [id number] Final HN LAB POC COMMENT (GLUCOSE) Test Performed by Nursing Services Final POCT BLOOD GAS, EG6 I-STAT - Abnormal pH, i-STAT 7.53 (*) Final pCO2, i-STAT 35 Final pO2, i-STAT 34 (*) Final TCO2, i-STAT 30 (*) Final O2 Saturation, i-STAT 74 (*) Final Base Excess, i-STAT 6 (*) Final Sample Source VENOUS Final Tech ID [id number] Final Comment (EG6) Final Value: Test Performed by Respiratory. For non-arterial reference ranges, please see ISTAT procedure POCT GLUCOSE, INTERFACED - Abnormal Glucose, POC 210 (*) Final Tech ID [id number] Final HN LAB POC COMMENT (GLUCOSE) Test Performed by Nursing Services Final POCT GLUCOSE, INTERFACED - Abnormal Glucose, POC 202 (*) Final Tech ID [id number] Final HN LAB POC COMMENT (GLUCOSE) Test [...] [facility] Adult Primary Care [address] [id number] Carrington Calderon MD [address] [phone] 02/27/2024 8:30 EDT Telemedicine [facility] Sleep Program - [address] [address] Dwight Colbert [address] [place] [phone] 02/29/2024 10:30 EDT Appointment [facility] Radiology Nuclear Medicine and PET [address] [id number] 02/29/2024 14:30 EDT Appointment [facility] Radiology Nuclear Medicine and PET [address] [id number] 03/01/2024 8:00 EDT Appointment [facility] Radiology Nuclear Medicine and PET [address] [address]131 03/01/2024 9:30 EDT Appointment [facility] Radiology Nuclear Medicine and PET [address] [phone] documented as of this encounter Procedures Procedure [...] EDT) 10/04/2020 16:2 9 EDT Scan 2 Tour Counselor PROCEDURE/MINOR BRAULIO GICAL ORDERABLES * (ABNORMAL) POCT GLUCOSE, INTERFACED (09/30/2020 11:30 EDT) Glucose, POC 202(H) 70 - 100 mg/dL 09/30/2020 11:31 EDT [facility] colorer [place] skins [place] [id number] 09/30/2020 11:31 EDT [facility] HN LAB POC COMMENT (GLUCOSE) Test Performed by Nursing Services 09/30/2020 11:31 EDT [facility] Blood CAPILLARY BLOOD / Unknown 09/30/2020 11:30 EDT 09/30/2020 11:31 EDT Doris Moreno MD POINT OF CARE TEST O MARILIA Performing Organization Address City/[facility]/ZIP Co de Phone Number [facility] [address] [place] [address] * (ABNORMAL) POCT GLUCOSE, INTERFACED (09/30/2020 10:48 EDT) Glucose, POC 210(H) 70 - 100 mg/dL 09/30/2020 11:31 EDT [facility] [employer] [place] [id number] 09/30/2020 11:31 EDT [facility] HN LAB POC COMMENT (GLUCOSE) Test Performed by Nursing Services 09/30/2020 11:31 EDT [facility] Blood CAPILLARY BLOOD / Unknown 09/30/2020 10:48 EDT 09/30/2020 11:31 EDT Doris Moreno MD POINT OF CARE TEST O MARILIA Performing Organization Address [facility] Co de Phone Number [facility] [address] [place] [address] * TROPONIN I (09/30/2020 8:55 EDT) Troponin I (ng/mL) <0.034 <0.034 ng/mL 09/30/2020 9:24 EDT [facility] Blood VENOUS BLOOD / Unknown Venipuncture / Unknown 09/30/2020 8:55 EDT 09/30/2020 8:58 EDT Narrative [facility] - 09/30/2020 9:24 EDT The results of this assay can be falsely lowered due to the consumption of Biotin. Doris Moreno MD CHEMISTRY & BLOOD GA S ORDERABLES Performing Organization Address City/[facility]/ZIP Co de Phone Number [facility] [address] [place] [address] * (ABNORMAL) BETA HYDROXYBUTYRATE (09/30/2020 8:45 EDT) Beta Hydroxybutyrate 0.7(H) <0.4 mmol/L 09/30/2020 9:14 EDT [facility] Blood VENOUS BLOOD / Unknown Venipuncture / Unknown 09/30/2020 8:45 EDT 09/30/2020 8:50 EDT Doris Moreno MD CHEMISTRY & BLOOD GA S ORDERABLES [facility] [address] [place] [address] * LIPASE (09/30/2020 8:45 EDT) Lipase 108 <251 U/L 09/30/2020 9:09 EDT [facility] Blood VENOUS BLOOD / Unknown Venipuncture / Unknown 09/30/2020 8:45 EDT 09/30/2020 8:50 EDT Doris Moreno MD CHEMISTRY & BLOOD GA S ORDERABLES Performing Organization Address [facility] Co de Phone Number [facility] [address] [place] [address] * (ABNORMAL) SCREENING GLUCOSE (09/30/2020 8:45 EDT) Glucose, Screening 268(H) 70 - 100 mg/dL 09/30/2020 9:10 EDT [facility] Comment:Elevated screening g lucose value greater than 180 mg/dl, please order follow up Hemoglobin A1C. Blood VENOUS BLOOD / Unknown Venipuncture / Unknown 09/30/2020 8:45 EDT 09/30/2020 8:50 EDT Doris Moreno MD CHEMISTRY & BLOOD GA S ORDERABLES Performing Organization Address City/[facility]/ZIP Co de Phone Number [facility] [address] [place] [address] * (ABNORMAL) MAGNESIUM (09/30/2020 8:45 EDT) Magnesium 1.6(L) 1.7 - 2.8 mg/dL 09/30/2020 9:09 EDT [facility] Blood VENOUS BLOOD / Unknown Venipuncture / Unknown 09/30/2020 8:45 EDT 09/30/2020 8:50 EDT Doris Moreno MD CHEMISTRY & BLOOD GA S ORDERABLES Performing Organization Address City/[facility] Co de Phone Number [facility] [address] [place] [address] * ELECTROLYTES (09/30/2020 8:45 EDT) Sodium 144 136 - 145 mEq/L 09/30/2020 9:09 EDT [facility] Potassium 4.0 3.5 - 5.0 mEq/L 09/30/2020 9:09 EDT [facility] Chloride 104 96 - 110 mEq/L 09/30/2020 9:09 EDT [facility] CO2 Total 24 22 - 32 mEq/L 09/30/2020 9:09 EDT [facility] Blood VENOUS BLOOD / Unknown Venipuncture / Unknown 09/30/2020 8:45 EDT 09/30/2020 8:50 EDT Doris Moreno MD CHEMISTRY & BLOOD GA S ORDERABLES Performing Organization Address [facility]/ZIP Co de Phone Number [facility] [address] [place] [address] * (ABNORMAL) CREATININE (09/30/2020 8:45 EDT) Creatinine 0.43(L) 0.52 - 1.04 mg/dL 09/30/2020 9:09 EDT [facility] eGFR 132 >60 mL/min/1.7 3m2 09/30/2020 9:09 EDT [facility] Comment:eGFR calculated gil curtis CKD-EPI equation for non- Americans. Multiply eGFR by 1.16 for patients. Blood VENOUS BLOOD / Unknown Venipuncture / Unknown 09/30/2020 8:45 EDT 09/30/2020 8:50 EDT Doris Moreno MD CHEMISTRY & BLOOD GA S ORDERABLES Performing Organization Address City/[facility]/ZIP Co de Phone Number [facility] [address] [place] [address] * BUN (09/30/2020 8:45 EDT) BUN 16 10 - 26 mg/dL 09/30/2020 9:09 EDT [facility] Blood VENOUS BLOOD / Unknown Venipuncture / Unknown 09/30/2020 8:45 EDT 09/30/2020 8:50 EDT Doris Moreno MD CHEMISTRY & BLOOD GA S ORDERABLES Performing Organization Address [facility] Co de Phone Number [facility] [address] [place] [address] * XR FOOT LEFT 1-2 VIEWS (09/30/2020 [...] 7:40 EDT) Hold Hold 09/30/2020 8:47 EDT [facility] Blood VENOUS BLOOD / Unknown Venipuncture / Unknown 09/30/2020 7:40 EDT 09/30/2020 7:45 EDT Doris Moreno MD LAB INFO SERVICE AND SUPPORT & PHONE RESULT [facility] [address] [place] [address] * (ABNORMAL) COMPLETE BLOOD COUNT AND DIFFERENTIAL (09/30/2020 7:40 EDT) WBC 15.61(H) 4.00 - 12.40 K/cmm 09/30/2020 8:01 EDT [facility] RBC 4.40 3.86 - 5.04 M/cmm 09/30/2020 8:01 [facility] Hemoglobin 13.7 11.6 - 15.2 gm/dL 09/30/2020 8:01 [facility] HCT 38.6 34.9 - 44.4 % 09/30/2020 8:01 [facility] MCV 88 81 - 98 fl 09/30/2020 8:01 [facility] MCH 31.1 26.7 - 33.3 pg 09/30/2020 8:01 [facility] MCHC 35.5 32.1 - 35.9 gm/dL 09/30/2020 8:01 [facility] RDW-CV 12.6 <14.7 % 09/30/2020 8:01 [facility] RDW-SD 40.1 <50.4 fl 09/30/2020 8:01 [facility] PLT 391(H) 141 - 377 K/cmm 09/30/2020 8:01 [facility] MPV 10.0 9.5 - 12.7 fl 09/30/2020 8:01 [facility] % Neutrophils 87.2 % 09/30/2020 8:01 [facility] % Lymphocytes 9.6 % 09/30/2020 8:01 [facility] % Monocytes 2.6 % 09/30/2020 8:01 [facility] % Eosinophils 0.0 % 09/30/2020 8:01 [facility] % Basophils 0.2 % 09/30/2020 8:01 [facility] % Immature Grans 0.4 % 10/01/19 8:01 [facility] Absolute Neutrophils 13.61(H) 2.20 - 8.85 K/cmm 09/30/2020 8:01 [facility] Absolute Lymphocytes 1.50 1.09 - 3.30 K/cmm 09/30/2020 8:01 [facility] Absolute Monocytes 0.41 0.10 - 0.80 K/cmm 09/30/2020 8:01 [facility] Absolute Eosinophils 0.00(L) 0.03 - 0.61 K/cmm 09/30/2020 8:01 [facility] ABS Basophils 0.03 0.01 - 0.11 K/cmm 09/30/2020 8:01 [facility] Absolute Immature Grans 0.06 0.00 - 0.06 K/cmm 09/30/2020 8:01 [facility] Type of Differential: Auto 09/30/2020 8:01 [facility] Blood VENOUS BLOOD / Unknown Venipuncture / Unknown 09/30/2020 7:40 EDT 09/30/2020 7:45 EDT Doris Moreno MD PACKAGES & DNA PROBE ORDERABLES Performing Organization Address City/State/[facility] Co de Phone Number [facility] [address] [place] [address] * (ABNORMAL) POCT BLOOD GAS, EG6 I-STAT (09/30/2020 7:34 EDT) iSTAT pH 7.53(H) 7.35 - 7.45 09/30/2020 7:38 [facility] iSTAT pCO2 35 35 - 45 mmHg 09/30/2020 7:38 [facility] i-STAT pO2 34(L) 80 - 105 mmHg 09/30/2020 7:38 [facility] iSTAT TCO2 30(H) 23 - 27 mmol/L 09/30/2020 7:38 [facility] i-STAT O2 Saturation 74(L) 95 - 98 % 09/30/2020 7:38 [facility] Base Excess 6(H) -2 - 3 mmol/L 09/30/2020 7:38 [facility] Sample Source VENOUS 09/30/2020 7:38 [facility] [employer] [place] ID [id number] 09/30/2020 7:38 [facility] Comment (EG6) Test Performed by Respiratory. For non-arterial reference ranges, please see ISTAT procedure 09/30/2020 7:38 EDT [facility] Comment:For arterial collect ion, the [...] MD POINT OF CARE TEST O RDERABLES [facility] [address] [place] [address] * EKG 12-LEAD (09/30/2020 7:29 EDT) 09/30/2020 7:29 EDT Narrative [facility] EKG - 10/04/2020 16:24 EDT ?[facility] Emergency ? Test Date: ?2020-09-30 Pat Name: ? CRISTY LUO ?Department: ?? ED ? Room: ? AC17 Gender: ? Female ? Molecular Physicist: ?? [id number] : ?1985 ? Requested By: DIAN Soto: [id number] ? Reading MD: ?? CAROLINA NOYOLA MD ? Measurements Intervals ?[place] ? Rate: ? 70 ? P: ?36 VA: ? 139 ?QRS: ?10 QRSD: ? 88 [...] Note Carolina Noyola MD - 10/04/2020 [facility] Emergency Test Date: 2020-09-30 Pat Name: CRISTY KAREEM Department: ED Room: [facility] Gender: Female Molecular Physicist: [id number] : 1985 Requested By: DIAN Huizar Order Number: [id number] Reading MD: CAROLINA NOYOLA MD Measurements Intervals [place] Rate: 70 P: 36 VA: 139 QRS: 10 QRSD: 88 T: 3 QT: 418 QTc: 452 Interpretive Statements SINUS RHYTHM WITH MARKED SINUS ARRHYTHMIA Compared to ECG 08/08/2020 19:04:21 SINUS ARRHYTHMIA now present I reviewed the tracing and have either agreed or edited the findings inthis report. Electronically Signed On 10-04-2020 16:24:06 EDT by CAROLINA RICHTER. Doris Moreno MD CARDIAC ECG ORDERABL ES Performing Organization Address City/[facility]/ZIP Co de Phone Number [facility] EKG * (ABNORMAL) POCT GLUCOSE, INTERFACED (09/30/2020 7:25 EDT) Glucose, POC 316(H) 70 - 100 mg/dL 09/30/2020 7:29 EDT [facility] [employer] [place] [id number] 09/30/2020 7:29 EDT [facility] HN LAB POC COMMENT (GLUCOSE) Test Performed by Nursing Services 09/30/2020 7:29 EDT [facility] Blood CAPILLARY BLOOD / Unknown 09/30/2020 7:25 EDT 09/30/2020 7:29 EDT Doris Moreno MD POINT OF CARE TEST O RDERABLES Performing Organization Address City/[facility]/ZIP Co de Phone Number [facility] [address] [place] [address] documented in this encounter Visit Diagnoses Diagnosis Gastroparesis- Primary Non-intractable vomiting, presence of nausea not specified, unspecified vomiting type Hypomagnesemia Disorders of magnesium metabolism documented in this encounter Administered Medications Inactive Administered Medications - up to 3 most recent administrations Medication Order MAR Action Action Date Dose Rate Site electrolyte-A (PLASMALYTE-A) bolus 1,000 mL 1,000 mL, intravenous, NOW X1, 1 dose, On 09/30/20 at 0930 New Bag 09/30/2020 9:39 EDT [...] 30 Minutes, NOW X1, 1 dose, On 4/27/21 at 0930, STAT 0941 (New Bag - Prov ider: Hayley Telles RN)1025 (Completed - Provider: Hayley Telles RN) metoclopramide (REGLAN) injection 5 mg 5 [...]
--- OUTSIDE RECORDS SUMMARY | 2024-01-02 06:14 | XMS_ITS | Encounter Summary ---
Author Organization [facility] Address [address] [place] [address] Care Team Providers Care Predictive Maintenance Technician Name Role Phone Unavailable Primary Care Provider Unavailabl e Encounter Details Date Type Department Care Team (Late st Contact Info) Description 09/02/2020 Orders Only [facility] Endocrinology - [facility] [address] [place] [address] Sara Zafar, GUSTAVO [address] [facility] [address] [place] [address] Type 2 diabetes mellitus with hyperglycemia, with long-term current use of insulin ([facility]) (Primary Dx) Social History Tobacco Use [...] Description 02/21/2024 9:45 EDT Office Visit [facility] Adult Primary Care - [address] 200851 Carrington Calderon MD [address] [phone] 02/27/2024 8:30 EDT Telemedicine [facility] Sleep Program - [address] [phone] Dwight Colbert [address] [place] [address] [phone] 02/29/2024 10:30 EDT [facility] Radiology Nuclear Medicine and PET - [address] [address] 02/29/2024 14:30 EDT Appointment [facility] Radiology Nuclear Medicine and PET - [address] [phone] 03/01/2024 8:00 EDT Appointment [facility] Radiology Nuclear Medicine and PET - [address] [phone] 03/01/2024 9:30 EDT Appointment [facility] Radiology Nuclear Medicine and PET [address] 315181 documented as of this encounter Visit Diagnoses Diagnosis Type 2 diabetes mellitus with hyperglycemia, with long-term current use of insulin ([facility])- Primary documented in this encounter
--- OUTSIDE RECORDS SUMMARY | 2024-01-02 06:14 | XMS_ITS | Encounter Summary ---
Author Organization [facility] Address [address] [place] [address] Care Team Providers Care Char Filter Tank Tender Name Role Phone Unavailable Primary Care Provider Unavailabl e Reason for Visit * Reason Onset Date Comments Paperwork request 08/29/2020 paperwork for adoption Encounter Details Date Type Department Care Team (Late st Contact Info) Description 08/29/2020 Telephone [facility] Adult Primary Care - [address] [phone] Tonja Alejandro PA-C [address] [place] [address] [place] [phone] Paperwork request (paperwork for adoption) Social [...] scheduled tomorrow west side of clinic. will picker box operator paperwork then for both. * Telephone Encounter - Tonja Alejandro PA-C - 08/29/2020 1611 EDT Form filled out. Will place in [facility] box to be sent out. * Telephone [...] [facility] - [address] [phone] Carrington Calderon MD [address] [phone] 02/27/2024 8:30 EDT Telemedicine [facility] Sleep Program - [address] 018781 Dwight Colbert [address] [place] [address] [phone] 02/29/2024 10:30 EDT Appointment [facility] Radiology Nuclear Medicine and PET - [facility] [address] [place], [place] 292671 02/29/2024 14:30 EDT [facility]ment [facility] Rad[facility] Medicine and PET - [address] 051981 03/01/2024 8:00 EDT Appointment [facility] Radiology Nuclear Medicine and PET - [address] 941191 03/01/2024 9:30 EDT [facility]ointment [facility] Radiology Nuclear Medicine and PET - [address] [address] documented as of this encounter Visit Diagnoses Not on filedocumented in this encounter
--- OUTSIDE RECORDS SUMMARY | 2024-01-02 06:14 | XMS_ITS | Encounter Summary ---
Author Organization [facility] Address [address] [place] [address] Care Team Providers Care Plumbers And Top Helpers Name Role Phone Unavailable Primary Care Provider Unavailabl e Reason for Visit * Reason Onset Date Comments Results 09/12/2020 Encounter Details Date Type Department Care Team (Late st Contact Info) Description 09/12/2020 Telephone [facility] OBGYN [address] [place], [place] [phone] [place] [address] [place] [phone] Results Social History [...] Joseph MD Obstetrics and Gynecology, PGY-2 Pager #[phone] 09/12/20 9:42 documented in this encounter Plan of Treatment Upcoming Encounters Date Type Department Care Team (Late st Contact Info) Description 02/21/2024 9:45 EDT Office Visit [facility] Adult Primary Care - [address] [address] Carrington Calderon MD [address] [phone] 02/27/2024 8:30 EDT Telemedicine [facility] Sleep Program - [address] [address] Dwight Colbert [address] [place] [place] [address] [phone] 02/29/2024 10:30 EDT Appointment [facility] Radiology Nuclear Medicine and PET - [address] 507271 02/29/2024 14:30 EDT [facility]ointment [facility] Radiology Nuclear Medicine and PET [address] 868961 03/01/2024 8:00 EDT Appointment [facility] Radiology Nuclear Medicine and PET - [address] 607011 03/01/2024 9:30 EDT [facility]ointment [facility] Radiology Nuclear Medicine and PET [address] [phone] documented as of this encounter Visit Diagnoses Not on filedocumented in this encounter
--- OUTSIDE RECORDS SUMMARY | 2024-01-02 06:14 | XMS_ITS | Encounter Summary ---
Author Organization [facility] Address [address] [place] [address] Care Team Providers Care Spring Former Machine Name Role Phone Unavailable Primary Care Provider Unavailabl e Reason for Visit * Auth/Cert Specialty Diagnoses / Procedures Referred By Contlesli t Referred To Contact Diagnoses Unwanted fertility Procedures ME LAP,RMV ADNEXAL STRUCTURE Nimisha Bay MD 2 [facility] Medical Office Building, [address] [place] [address] Referral ID Status Reason Start Date Expiration Date Visits Re quested Visits Authorized [id number] 06/30/2020 1 1 Encounter Details Date Type Department Care Team (Late st Contact Info) Description 08/20/2020 13:05 EDT Anesthesia Event [facility] [place] [address] [place] [address] Cece Marrufo MD [address] [phone] Jhonatan Peterson, RICA 111 [facility], Level [address] [place] [address] Anesthesia Record Procedure Summary Procedure [...] OR Notes * Anesthesia Postprocedure Evaluation - Jhonatan Peterson AA - 08/20/2020 1445 EDT Patient: Stella Huizar Young Vital signs were reviewed with the recovery nurse. Complete vitals history is available in the [facility]. Vitals Value Taken Time BP 130/73 08/20/20 [...] has a referral for therapy. ??? Diabetes ([facility]) A1c 10.3 on 11/28/2019 - poorly controlled ??? Diabetes mellitus, type 2 ([facility]) pt check blood sugars at home- X [...] vomiting occasionally ??? Obesity, unspecified ??? Osteomyelitis ([facility]) of left great toe-s/p amputation ??? Peripheral neuropathy 08/12/20- Bilateral feet-Takes Gabapentin- pt just started this med. ??? Productive cough pt currently quitting smoking- clear secretions. ??? Spontaneous miscarriage 09/04/201502/18, 08/19. Followed by Dr. López/[facility] in OBGYN Relevant Problems Neuro/Psych (+) Hx of ectopic CARDIOVASCULAR (+) Migraine with aura and without status migrainosus, not intractable ENDO/GI (+) Type 2 diabetes mellitus ([facility]) (+) Type 2 diabetes mellitus with diabetic polyneuropathy, with long-term current use of insulin ([facility]) (+) 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 ([facility]) Other (+) Osteomyelitis of great [...] and Staff Patient location during procedure: OR Resident/SOUBRETTE: Jhonatan Peterson AA Performed: resident/SOUBRETTE/AA Indications and Patient Condition Indications for airway [...] Info) Description 02/21/2024 9:45 EDT Office Visit [facility] Adult Primary Care - [address] 538111 Carrington Calderon MD [address] [phone] 02/27/2024 8:30 EDT Telemedicine [facility] Sleep Program [address] [phone] Dwight Colbert [address] [place] [address] [phone] 02/29/2024 10:30 EDT Appointment [facility] Radiology Nuclear Medicine and PET [address] 310551 02/29/2024 14:30 EDT Appointment [facility] Radiology Nuclear Medicine and [address] [address] 03/01/2024 8:00 EDT Appointment [facility] Radiology Nuclear [facility] and [address] [address] 03/01/2024 9:30 EDT Appointment [facility] Radiology [facility] and [address] [address] documented as of this encounter Procedures Procedure Name Priority Date/Time Associated Diagnosis Comments ANESTHESIA INTUBATION Routine 08/20/2020 13:23 EDT documented in this encounter Results * Airway (08/20/2020 13:23 EDT) Narrative Jhonatan Peterson AA - 08/20/2020 13:23 EDT Jhonatan Peterson AA ? 08/20/2020 13:24 Airway Date/Time: 08/20/2020 13:17 Urgency: elective General Information and Staff Patient location during procedure: OR Resident/SOUBRETTE: Jhonatan Peterson AA Performed: resident/SOUBRETTE/RICA Indications and Patient Condition Indications for airway [...]
--- OUTSIDE RECORDS SUMMARY | 2024-01-02 06:14 | XMS_ITS | Encounter Summary ---
Author Organization [facility] Address [address] [place] [address] Care Team Providers Care New Business Clerk Name Role Phone Unavailable Primary Care [...] - [facility] Adult Primary Care - [address] [phone] Carrington Calderon MD [address] [phone] 02/27/2024 8:30 EDT Telemedicine [facility] Sleep Program - [address] [phone] Dwight Colbert [address] [place] [address] [phone] 02/29/2024 10:30 EDT Appointment [facility] Radiology Nuclear Medicine and PET - [address] 562641 02/29/2024 14:30 EDT Appointment [facility] Radiology Nuclear Medicine and PET - [address] [address] 03/01/2024 8:00 EDT Appointment [facility] Radiology Nuclear Medicine and PET - [address] [address] 03/01/2024 9:30 EDT [facility]ointment [facility] Radiology Nuclear Medicine and PET - [address] [address] documented as of this encounter Visit Diagnoses Not on filedocumented in this encounter
--- OUTSIDE RECORDS SUMMARY | 2024-01-02 06:14 | XMS_ITS | Encounter Summary ---
Author Organization [facility] Address [address] [place] [address] Care Team Providers Care Employee Relations Assistant Name Role Phone Unavailable Primary Care Provider Unavailabl e Reason for Visit * Reason Onset Date Comments Procedure 08/18/2020 Encounter Details Date Type Department Care Team (Late st Contact Info) Description 08/18/2020 Orders Only [facility] Women's Services - [facility] [address] [place], [place] 443721 Nimisha Bay MD 2 [facility] Medical Office Building, [address] [place] [address] Encounter for preprocedure screening laboratory [...] [facility] [address] [phone] Carrington Calderon MD 1 [facility] 1 [place] [phone] 02/27/2024 8:30 EDT Telemedicine [facility] Sleep Program - [address] [phone] Dwight Colbert [address] [place] [address] 02/29/2024 10:30 EDT Appointment [facility] Radiology Nuclear Medicine and PET - [address] [address] 02/29/2024 14:30 EDT Appointment [facility] Radiology Nuclear Medicine and PET [address] 111461 03/01/2024 8:00 EDT Appointment [facility] Radiology Nuclear Medicine and PET [address] [phone] 03/01/2024 9:30 EDT Appointment [facility] Nuclear [place] and PET [address] [address] documented as of this encounter Results * COVID-19 TESTING (08/18/2020 16:23 EDT) COVID-19 rt-PCR Result Negative Negative 08/19/2020 15:57 EDT [facility] Comment: This test has [...] developed and its performance characteristics determined by [facility]. It has not been cleared or approved [...] testing. This test is based on the [facility] COVID-19 Emergency Use Authorization (EUA) assay, with minor modification as defined by the FDA Performed on the OnApp 7 Flex RT-PCR System. Performing Lab [facility] 08/19/2020 15:57 EDT [facility] Swab ENTIRE NASOPHARYNX / Unknown Swab / Unknown 08/18/2020 16:23 EDT 08/18/2020 16:23 EDT Nimisha Bay MD MICROBIOLOGY - [facility] ORDERABLES [facility] [address] [place] [address] documented in this encounter Visit Diagnoses Diagnosis Encounter for preprocedure screening laboratory testing for COVID-19- Primary documented in this encounter
--- OUTSIDE RECORDS SUMMARY | 2024-01-02 06:14 | XMS_ITS | Encounter Summary ---
Author Organization [facility] Address [address] [place] [address] Care Team Providers Care Masseur/Masseuse Name Role Phone Unavailable Primary Care Provider Unavailabl e Reason for Referral * Radiology Services (Routine) - Closed Specialty Diagnoses / Procedures Referred By Kit goode Referred To Contact Nuclear Medicine Diagnoses Generalized abdominal pain Emesis, persistent Type 2 diabetes mellitus with hyperosmolarity without coma, with long-term current use of insulin ([facility]) Procedures NM GASTRIC EMPTYING SOLID Broderick Irene MD [address] [place] [address] Referral ID Status Reason Start Date Expiration Date Visits Re quested Visits Authorized [id number] Closed 08/10/2020 1 1 Reason for Visit * Radiology Services (Routine) - Closed Specialty Diagnoses / Procedures [facility] Referred To Contact Nuclear Medicine Diagnoses Generalized abdominal pain Emesis, persistent Type 2 diabetes mellitus with hyperosmolarity without coma, with long-term current use of insulin ([facility]) Procedures NM GASTRIC EMPTYING SOLID Broderick Irene MD [address] [place] [address] Referral ID Status Reason Start Date Expiration Date Visits Re quested Visits Authorized [id number] Closed 08/10/2020 1 1 Encounter Details Date Type Department Care Team (Latest Contact Info) Description 09/09/2020 8:27 EDT - 09/09/2020 23:59 EDT Hospital Encounter [facility] Radiology Nuclear Medicine and PET - [address] [address] Generalized abdominal pain; Emesis, persistent; Type 2 diabetes mellitus with hyperosmolarity without coma, with long-term current use of insulin ([facility]) Discharge Disposition: Home or Self Care [...] hyperglycemia, with long-term current use of insulin ([facility]) Use 1 pen needle as directed [...] [facility] Adult Primary Care - [address] [phone] Carrington Calderon MD [address] [phone] 02/27/2024 8:30 EDT Telemedicine [facility] Sleep Program - [address] [phone] Dwight Colbert [address] [place], [place] 4477[address] 02/29/2024 10:30 EDT [facility]ointment [facility] Radiology Nuclear Medicine and PET - [address] [address] 02/29/2024 14:30 EDT Appointment [facility] Radiology Nuclear Medicine and PET [address] [address] 03/01/2024 8:00 EDT Appointment [facility] Radiology Nuclear Medicine and PET [address] [address] 03/01/2024 9:30 EDT Appointment [facility] Radiology Nuclear Medicine and PET [address] [address] documented as of this encounter Procedures Procedure Name Priority Date/Time Associated Diagnosis Comments NM GASTRIC EMPTYING SOLID Routine 09/09/2020 15:05 EDT Generalized abdominal pain Emesis, persistent Type 2 diabetes mellitus with hyperosmolarity without coma, with long-term current use of insulin ([facility]) POCT GLUCOSE, INTERFACED Routine 09/09/2020 8:47 EDT documented in this encounter Results * NM GASTRIC EMPTYING SOLID (09/09/2020 15:05 EDT) Anatomical Region Laterality Modality Body Nuclear Medicine 09/09/2020 16:1 0 EDT Impressions 09/09/2020 16:10 EDT Delayed gastric emptying for solid food. References: Manny et al. [place] Journal of Gastroenterology 2000. Kev et al. Gastroenterology 2006 Roshni et al. [place] Journal of Gastroenterology 2006. Narrative 09/09/2020 16:10 [...] Delayed gastric emptying for solid food. References: Tougas et al. [place] Journal of Gastroenterology 2000. Kev et al. Gastroenterology 2006 Roshni et al. [place] Journal of Gastroenterology 2006. Broderick Irene MD [facility] ORDERABLES * (ABNORMAL) POCT GLUCOSE, INTERFACED (09/09/2020 8:47 EDT) [facility] Signature Glucose, POC 107(H) 70 - 100 mg/dL 09/10/2020 6:44 EDT [facility] supervisor photoengraving ID [id number] 09/10/2020 6:44 EDT [facility] HN LAB POC COMMENT (GLUCOSE) Test performed by Nuclear Medicine 09/10/2020 6:44 EDT [facility] Blood CAPILLARY BLOOD / Unknown 09/09/2020 8:47 EDT 09/10/2020 6:44 EDT Provider Unknown MD POINT OF CARE TEST O RDERABLES [facility] [address] [place] [address] documented in this encounter Visit Diagnoses Diagnosis Generalized abdominal pain Abdominal pain, generalized Emesis, persistent Persistent vomiting Type 2 diabetes mellitus with hyperosmolarity without coma, with long-term current use of insulin ([facility]) documented in this encounter Administered [...]
--- OUTSIDE RECORDS SUMMARY | 2024-01-02 06:14 | XMS_ITS | Encounter Summary ---
Author Organization [facility] Address [address] [place] [address] Care Team Providers Care Drop Wire Stringer Name Role Phone Unavailable Primary Care Provider Unavailabl e Encounter Details Date Type Department Care Team (Late st Contact Info) Description 08/14/2020 Orders Only [facility] Women's Services - [address] [address] Rosa Chang RN Pre-procedure lab exam ([facility] - [address] 235241 Carrington Calderon MD [address] [phone] 02/27/2024 8:30 EDT Telemedicine [facility] Sleep Program - [address] [phone] Dwight Colbert [address] [place] [address] 02/29/2024 10:30 EDT [facility]ointment [facility] Radiology Nuclear Medicine and PET - [address] [address] 02/29/2024 14:30 EDT [facility]oint[facility] Radiology Nuclear Medicine and PET - [address] [phone] 03/01/2024 8:00 EDT Appointment [facility] Radiology Nuclear Medicine and PET - [address] [phone] 03/01/2024 9:30 EDT Appointment [facility] Radiology Nuclear Medicine and PET [address] [address] documented as of this encounter Visit Diagnoses Diagnosis Pre-procedure lab exam- Primary Pre-procedural laboratory examination documented in this encounter
--- OUTSIDE RECORDS SUMMARY | 2024-01-02 06:14 | XMS_ITS | Encounter Summary ---
Author Organization [facility] Address [address] [place] [address] Care Team Providers Care Head Of Housekeeping Name Role Phone Unavailable Primary Care Provider Unavailabl e Reason for Visit * Reason Onset Date Comments Coordination Of Care 10/01/2020 Patient arturo ding to ED Encounter Details Date Type Department Care Team (Late st Contact Info) Description 10/01/2020 Telephone [facility] Adult Primary Care - [address] 714041 Tonja Alejandro PA-C [address] [place] [address] [place] [phone] Coordination Of Care (Patient heading to [...] doing well. She did fly out to [place] to visit her family and came back. [...] need some refills. * Telephone Encounter - Daynaa Cosme - 10/01/2020 1042 EDT Patients called [...] [facility] Adult Primary Care - [address] 132801 Carrington Calderon MD [address] [phone] 02/27/2024 8:30 EDT Telemedicine [facility] Sleep Program - [address] [address] Dwight Colbert [address] [place] [address] 02/29/2024 10:30 EDT [facility] Radiology Nuclear Medicine and PET - [address] [address] 02/29/2024 14:30 EDT [facility] Radiology Nuclear Medicine and PET - [address] 855311 03/01/2024 8:00 EDT [facility]ointment [facility] Radiology Nuclear Medicine and PET - [address] 687241 03/01/2024 9:30 EDT Appointment [facility] Radiology Nuclear Medicine and PET - [address] [address] documented as of this encounter Visit Diagnoses [...]
--- OUTSIDE RECORDS SUMMARY | 2024-01-02 06:14 | XMS_ITS | Encounter Summary ---
Author Organization [facility] Address [address] [place] [address] Care Team Providers Care Telegraphic Typewriter Mechanic Name Role Phone Unavailable Primary Care Provider Unavailabl e Reason for Visit * Reason Comments Follow-up Encounter Details Date Type Department Care Team (Latest Contact Info) Description 09/15/2020 9:45 EDT Office Visit [facility] Adult Primary Care - [address] [phone] Tonja Alejandro PA-C [address] [place] [address] [address] [place] [address] Type 2 diabetes mellitus with hyperosmolarity without coma, with long-term current use of insulin ([facility]) (Primary Dx); Gastroparesis; Chronic bilateral thoracic back [...] Patient reports that she followed up with [facility] and underwent a laparoscopic bilateral salpingectomy on [...] worse. She has done physical therapy in [place] specifically pool therapy in the past. She also reports that she has a lot of excessive skin from her weight loss. She thinks that these pulls on the back muscles. She is interested in the future of possibly getting skin removal. Patient reports that on Tuesday she is traveling out to [place] prior self. She has severe anxiety whenit [...] Anxiety regarding this upcoming airplane flight to [place] -patient already has a prescription for lorazepam, [...] place for injection therapy. Tonja Alejandro PA-C [facility] Adult Primary Care-[place] 09/15/2020 9:59 I spent a total of [...] [facility] Adult Primary Care - [address] [phone] Carrington Calderon MD [address] [phone] 02/27/2024 8:30 EDT Telemedicine [facility] Sleep Program - [address] 450651 Dwight Colbert [address] [place] [address] [phone] 02/29/2024 10:30 EDT Appointment [facility] Radiology Nuclear Medicine and PET - [address] 607241 02/29/2024 14:30 EDT Appointment [facility] Radiology Nuclear Medicine and PET [address] [phone] 03/01/2024 8:00 EDT Appointment [facility] Radiology Nuclear Medicine and PET [address] [phone] 03/01/2024 9:30 EDT Appointment [facility] Radiology Nuclear Medicine and PET - [address] [phone] documented as of this encounter Visit Diagnoses Diagnosis Type 2 diabetes mellitus with hyperosmolarity without coma, with long-term current use of insulin ([facility])- Primary Gastroparesis Chronic bilateral thoracic back pain Lumbar pain Lumbago documented in this encounter
--- OUTSIDE RECORDS SUMMARY | 2024-01-02 06:14 | XMS_ITS | Encounter Summary ---
Author Organization [facility] Address [address] [place] [address] Care Team Providers Care Securities Trader Name Role Phone Unavailable Primary Care Provider Unavailabl e Reason for Visit * Auth/Cert Specialty Diagnoses / Procedures Referred By Contac t Referred To Contact Diagnoses Unwanted fertility Procedures [place] LAP,RMV ADNEXAL STRUCTURE Nimisha Bay MD [address] [place] [address] Medical Office Building, [address] [place] [address] Referral ID Status Reason Start Date Expiration Date Visits Re quested Visits Authorized [id number] 06/30/2020 1 1 Encounter Details Date Type Department Care Team (Late st Contact Info) Description 08/20/2020 12:00 EDT - 08/20/2020 14:[address] [facility] OR [address] [place] [address] Nimisha Bay MD [address] [place] [address] Medical Office Building, [address] [place] [address] Laparoscopic Bilateral Salpingectomy [64541 (CPT??)] Surgery Details Date/Time Status Location OR Service Patient Class Case Cl ass Case Type Trauma Case? 08/20/20 1200 Posted [facility] Outpatient [...] Code Departure Means Destination Home or Self Detention documented in this encounter Progress Notes * [...] 08/18/2020 14:27 PGY-4 Obstetrics and Gynecology Pager #[phone] documented in this encounter H&P Notes * [...] Egan D.O. 07/28/2020 11:05 Obstetrics/Gynecology PGY-1 Pager #[phone] documented in this encounter OR Notes * OR Surgeon - Nimisha Bay MD - 08/20/2020 1436 EDT Name: Cristy Luo :1985 Date of Service:@08/20/2020?? Surgeon: Dr. Nimisha Bay Slip Cover Sewer:Tonja Egan D.O., Jackie Oropeza M.D. Procedure: Laparoscopy [...] Egan D.O. 08/20/2020 15:22 Obstetrics/Gynecology PGY-1 Pager #[phone] ?? Attending note: I was present for the entire procedure. No complications. Nimisha Bay MD ? documented in this encounter Plan of Treatment Upcoming Encounters Date Type Department Care Team (Late st Contact Info) Description 02/21/2024 9:45 EDT Office Visit [facility] Adult Primary Care - [address] [phone] Carrington Calderon MD [address] [address] 02/27/2024 8:30 EDT Telemedicine [facility] Sleep Program - [address] [address]28[address] Dwight Colbert [address] [place] [phone] 02/29/2024 10:[address] [facility] Radiology Nuclear Medicine and PET - [address] [phone] 02/29/2024 14:[address] [facility] Radiology Nuclear Medicine and PET - [address] [address] 03/01/2024 8:[address] [facility] Radiology Nuclear Medicine and PET - [address] [address] 03/01/2024 9:[address] [facility] Radiology Nuclear Medicine and PET - [address] [address] Scheduled Referrals Name Type Priority Associated Diagnoses [...] dimension); full cross sections identified. 08/29/2020 7:12 EDT [facility] Attestation There was significant resident/fellow involvement in the diagnostic evaluation of this case. By the signature below, the attending physician certifies that they have personally conducted a gross and/or microscopic examination of the described specimens and rendered or confirmed the above diagnosis. 08/29/2020 7:12 EDT [facility] at 0712 Clinical History Unwanted fertility 08/29/2020 7:12 EDT [facility] Gross Description A. [...] spear. Sectioning reveals patent, unremarkable cut surfaces. Information Systems Specialist sections, to include the bisected fimbria, are submitted in A1 (shorter tube) and A2 (longer tube). EUNICE BAEZ(ASCP) 08/21/2020 9:18 08/29/2020 7:12 EDT [facility] Resident/Cash w: John Smith MD 08/29/2020 7:12 EDT [facility] Performing Lab [facility] 08/29/2020 7:12 EDT [facility] Scanned Images 08/29/2020 7:12 EDT [facility] Tissue BOTH FALLOPIAN TUBES / Unknown 08/20/2020 13:15 EDT 08/20/2020 15:16 EDT Nimisha Bay MD PATHOLOGY ORDERABLE S [facility] [address] [place] [address] * (ABNORMAL) POCT GLUCOSE, INTERFACED (08/20/2020 11:26 EDT) Glucose, POC 119(H) 70 - 100 mg/dL 08/20/2020 11:26 EDT [facility] toll collector supervisor ID [id number] 08/20/2020 11:26 EDT [facility] HN LAB POC COMMENT (GLUCOSE) Test Performed by Nursing Services 08/20/2020 11:26 EDT [facility] Blood CAPILLARY BLOOD / Unknown 08/20/2020 11:26 EDT 08/20/2020 11:26 EDT Whit Rae MD POINT OF CARE TEST O RDERABLES [facility] [address] [place] [address] * TEST, URINE (08/20/2020 10:42 EDT) Test, Urine Negative Negative 08/20/2020 10:59 EDT [facility] Comment:False negative resul ts may occur in women who are beyond 5-8 weeks gestation. Diagnosis of should be based on a correlation of test results with typical clinical signs and symptoms. Urine VOIDED URINE SPECIMEN / Unknown Urine Collect / Unknown 08/20/2020 10:42 EDT 08/20/2020 10:46 EDT Whit Rae MD URINALYSIS ORDERABLE S Performing Organization Address City/State/[facility] Co de Phone Number [facility] [address] [place] [address] documented in this encounter Visit Diagnoses Diagnosis Admission for sterilization- Primary Sterilization 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 ([facility]) Type II or unspecified type diabetes mellitus [...] atropine 0.1 mg/mL syringe 0.5 mg 1 021 chlorhexidine gluconate 2 % cloth 1 Each [...]
--- OUTSIDE RECORDS SUMMARY | 2024-01-02 06:14 | XMS_ITS | Encounter Summary ---
Author Organization [facility] Address [address] [place] [address] Care Team Providers Care Mud Jack Nozzleman Name Role Phone Unavailable Primary Care Provider Unavailabl e Encounter Details Date Type Department Care Team (Latest Contact Info) Description 08/18/2020 16:20 EDT Phlebotomy Only [facility] - [employer] [address] [place] [address] Encounter for preprocedure screening laboratory testing for [...] [facility] Adult Primary Care - [address] [phone] Carrington Calderon MD 1 [facility] [address] [place] [phone] 02/27/2024 8:30 EDT Telemedicine [facility] Sleep Program - [address] [phone] Dwight Colbert [address] [place] [phone] 02/29/2024 10:30 EDT Appointment [facility] Radiology Nuclear Medicine and PET - [address] [phone] 02/29/2024 14:30 EDT Appointment [facility] Radiology Nuclear Medicine and PET [address] [address] 03/01/2024 8:00 EDT Appointment [facility] Radiology Nuclear [facility] and [address] [address] 03/01/2024 9:30 EDT Appointment [facility] Radiology Nuclear [facility] and [address] [address] documented as of this encounter Procedures Procedure Name Priority Date/Time Associated Diagnosis Comments ZZCOVID-19 TEST [facility] STAT 08/18/2020 16:23 EDT Encounter for preprocedure screening laboratory testing for COVID-19 COVID-19 TESTING STAT 08/18/2020 16:2 3 EDT Encounter for preprocedure screening laboratory testing for COVID-19 documented in this encounter Results * COVID-19 TEST [facility] PCR (08/18/2020 16:23 EDT) Swab ENTIRE NASOPHARYNX / Unknown Swab / Unknown 08/18/2020 16:23 EDT 08/18/2020 16:23 EDT Nimisha Bay MD MICROBIOLOGY - [facility] ORDERABLES [facility] [address] [place] [address] * COVID-19 TESTING (08/18/2020 16:23 EDT) COVID-19 rt-PCR Result Negative Negative 08/19/2020 15:57 EDT [facility] Comment: This test has not been FDA cleared or approved. This test has been authorized by FDA under an EUA for use by authorized laboratories. This test has been authorized only for detection of nucleic acid from 2018-, not for any other viruses or pathogens. [...] developed and its performance characteristics determined by [facility]. It has not been cleared or [...] testing. This test is based on the [facility] COVID-19 Emergency Use Authorization (EUA) assay, with minor modification as defined by the FDA Performed on the [employer] 7 Flex RT-PCR System. Performing Lab [facility] Lab 08/19/2020 15:57 EDT [facility] Swab ENTIRE NASOPHARYNX / Unknown Swab / Unknown 08/18/2020 16:23 EDT 08/18/2020 16:23 EDT Nimisha Bay MD MICROBIOLOGY - [facility] ORDERABLES [facility] [address] [place] [address] documented in this encounter Visit Diagnoses Diagnosis Encounter for preprocedure screening laboratory testing for COVID-19 documented in this encounter
--- OUTSIDE RECORDS SUMMARY | 2024-01-02 06:14 | XMS_ITS | Encounter Summary ---
Author Organization [facility] Address [address] [place] [address] Care Team Providers Care Novelty Candy Maker Name Role Phone Unavailable Primary Care Provider Unavailabl e Reason for Referral * (Routine) - Receiving Office to Obtain Authorization Specialty Diagnoses / Procedures Referred By Contac t Referred To Contact [facility] Or [address] [place] [address] Referral ID Status Reason Start Date Expiration Date Visits Requested Visits Authorized [id number] Receiving Office to Obtain Authorization Specialty Services Required 1 1 1 * (Routine) - Receiving Office to Obtain Authorization Specialty Diagnoses / Procedures Referred By Contac t Referred To Contact [facility] Or [address] [place] [address] Referral ID Status Reason Start Date Expiration Date Visits Requested Visits Authorized [id number] Receiving Office to Obtain Authorization Specialty Services [...] Referred To Contact Diagnoses Unwanted fertility Procedures [place] LAP,RMV ADNEXAL STRUCTURE Nimisha Bay MD 6 [facility] Medical Office Building, [address] [place] [phone] Referral ID Status Reason Start Date Expiration Date Visits Re quested Visits Authorized [id number] 06/30/2020 1 1 Encounter Details Date Type Department Care Team (Latest Contact Info) Description 08/20/2020 9:59 EDT - 08/20/2020 15:35 EDT Hospital Encounter [facility] [place] OR [address] [place] [address] Nimisha Bay MD [address] [place] [address] Medical Office Building, [address] [place] [phone] Discharge Disposition: Home or Self Care [...] or Self Custodial documented in this encounter Progress Notes * [...] 08/18/2020 14:27 PGY-4 Obstetrics and Gynecology Pager #[phone] documented in this encounter H&P Notes * [...] Egan D.O. 07/28/2020 11:05 Obstetrics/Gynecology PGY-1 Pager #[phone] documented in this encounter OR Notes * OR Surgeon - Nimisha Bay MD - 08/20/2020 1436 EDT Name: Cristy Luo :1985 Date of Service:@08/20/2020?? Surgeon: Dr. Nimisha Bay Binding Machine Operator:Tonja Egan D.O., Jackie Oropeza M.D. [...] Egan D.O. 08/20/2020 15:22 Obstetrics/Gynecology PGY-1 Pager #[phone] ?? Attending note: I was present for the entire procedure. No complications. Nimisha Bay MD ? documented in this encounter Plan of Treatment Upcoming Encounters Date Type Department Care Team (Late st Contact Info) Description 02/21/2024 9:45 EDT Office Visit [facility] Adult Primary Care - [address] [phone] Carrington Calderon MD [address] [phone] 02/27/2024 8:30 EDT Telemedicine [facility] Sleep Program - [address] [phone] Dwight Colbert [address] [place] [phone] 02/29/2024 10:30 EDT Appointment [facility] Radiology Nuclear Medicine and PET - [address] [phone] 02/29/2024 14:30 EDT Appointment [facility] Radiology Nuclear Medicine and PET [address] [phone] 03/01/2024 8:00 EDT Appointment [facility] Radiology Nuclear Medicine and PET [address] [phone] 03/01/2024 9:30 EDT Appointment [facility] Radiology Nuclear Medicine and PET - [address] [address] Scheduled Referrals Name Type Priority Associated Diagnoses [...] dimension); full cross sections identified. 08/29/2020 7:12 [facility] Attestation There was significant resident/fellow involvement in the diagnostic evaluation of this case. By the signature below, the attending physician certifies that they have personally conducted a gross and/or microscopic examination of the described specimens and rendered or confirmed the above diagnosis. 08/29/2020 7:12 [facility] at 0712 Clinical History Unwanted fertility 08/29/2020 7:12 [facility] Gross Description A. Received [...] spear. Sectioning reveals patent, unremarkable cut surfaces. Stationary Steam Engineer sections, to include the bisected fimbria, are submitted in A1 (shorter tube) and A2 (longer tube). EUNICE BAEZ(ASCP) 08/21/2020 9:18 08/29/2020 7:12 EDT [facility] Resident/Cash w: John Smith MD 08/29/2020 7:12 EDT [facility] Performing Lab [facility] 08/29/2020 7:12 EDT [facility] Scanned Images 08/29/2020 7:12 EDT [facility] Tissue BOTH FALLOPIAN TUBES / Unknown 08/20/2020 13:15 EDT 08/20/2020 15:16 EDT Nimisha Bay MD PATHOLOGY ORDERABLE S Performing Organization Address [facility] Co de Phone Number [facility] [address] [place] [address] * (ABNORMAL) POCT GLUCOSE, INTERFACED (08/20/2020 11:26 EDT) Glucose, POC 119(H) 70 - 100 mg/dL 08/20/2020 11:26 EDT [facility] bookkeeping clerk ID [id number] 08/20/2020 11:26 EDT [facility] HN LAB POC COMMENT (GLUCOSE) Test Performed by Nursing Services 08/20/2020 11:26 EDT [facility] Blood CAPILLARY BLOOD / Unknown 08/20/2020 11:26 EDT 08/20/2020 11:26 EDT Whit Rae MD POINT OF CARE TEST O RDERABLES Performing Organization Address City/[facility]/ZIP Co de Phone Number [facility] [address] [place] [address] * TEST, URINE (08/20/2020 10:42 EDT) Test, Urine Negative Negative 08/20/2020 10:59 EDT [facility] Comment:False negative resul ts may occur in women who are beyond 5-8 weeks gestation. Diagnosis of should be based on a correlation of test results with typical clinical signs and symptoms. Urine VOIDED URINE SPECIMEN / Unknown Urine Collect / Unknown 08/20/2020 10:42 EDT 08/20/2020 10:46 EDT Whit Rae MD URINALYSIS ORDERABLE S [facility] [address] [place] [address] documented in this encounter Visit Diagnoses Diagnosis [...] dose, Starting on Tue08/20/20 at 1425, Until 3/17/21 at 1501, Pain, Routine, Recovery (only) documented in this encounter Orders Medications Ordered That Satn ht Not Have Been Administered Count Last Ordered Date First Ordered Date acetaminophen (TYLENOL) solu tion unit dose cup 995 mg 1 08/20/2020 atropine 0.1 mg/mL syringe 0.5 mg 1 021 bupivacaine (PF) (MARCAINE) 0.25 % (2.5 mg/mL) [...]
--- OUTSIDE RECORDS SUMMARY | 2024-01-02 06:14 | XMS_ITS | Encounter Summary ---
Author Organization [facility] Address [address] [place] [address] Care Team Providers Care Commercial Food Instructor Name Role Phone Unavailable Primary Care [...] [facility] Adult Primary Care - [address] [phone] Carrington Calderon MD [address] [phone] 02/27/2024 8:30 EDT Telemedicine [facility] Sleep Program - [address] [phone] Dwight Colbert [address] [place] [phone] 02/29/2024 10:30 EDT Appointment [facility] Radiology Nuclear Medicine and PET - [address] [phone] 02/29/2024 14:30 EDT Appointment [facility] Radiology Nuclear Medicine and PET - [address] [address] 03/01/2024 8:00 EDT [facility] Radiology Nuclear Medicine and PET - [address] [address] 03/01/2024 9:30 EDT [facility] and PET - [address] [address] documented as of this encounter Visit Diagnoses Not on filedocumented in this encounter
--- OUTSIDE RECORDS SUMMARY | 2024-01-02 06:14 | XMS_ITS | Encounter Summary ---
Author Organization [facility] Address [address] [place] [address] Care Team Providers Care Tube Filler Name Role Phone Unavailable Primary Care Provider Unavailabl e Reason for Visit * Reason Comments Diabetes Encounter Details Date Type Department Care Team (Latest Contact Info) Description 08/27/2020 10:30 EDT Office Visit [facility] Endocr[facility] - [facility] [address] [place] [address] Sara Zafar NP [address] [facility] [address] [place] [address] Anxiety and depression (Primary Dx); Gastroparesis; 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 ([facility]) Social History Tobacco Use Types Packs/Day [...] 08/27/2020 10:30 EDT Send August BS to [email or web address] Apply for Freestyle Vignesh CGM. Kehinde's Nir Ozempic 0.25 mg weekly for 4 weeks.. If tolerated increased to 0.5 mg weekly for 4 weeks and athn To 1.0 weekly. If severe nausea drop to lower dose for another month and retry. Try to avoid bolusing between snacks. RD referral F/U in 4 months with new INTEGRITY CONSULTANT. documented in this encounter Ordered Prescriptions Prescription [...] APRN - 08/27/2020 1030 EDT Subjective: [facility] diabetes Center F/U Note T Patient ID: [...] trimester miscarriages, most recently terminated a at [facility] 10/28/2019. Recurrent loss is attributed to to poorly controlled type 2 diabetes in conjunction with tobacco dependence. She saw MEDICAL UNDERWRITER on 11/03/2018, and was advised to get [...] siblings, knows about 2, no DM. 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 Previous [...] 2 tabs daily. 2. Send BS to [email or web address] 3. Annetteeescourtney [place] CGM. ordered [facility] 4. Try to avoid bolusing between snacks. 5. RD referral 6. Consider using 1/2 unit pen for Novolog. 6. F/U in 4 months with new INTEGRITY CONSULTANT as I will be retiring in October. [...] [facility] - [address] [address]31 Carrington Calderon MD [address] [phone] 02/27/2024 8:30 EDT Telemedicine [facility] Sleep Program - [address] [phone] Dwight Colbert [address] [place] [phone] 02/29/2024 10:30 EDT Appointment [facility] Radiology Nuclear Medicine and PET [address] [phone] 02/29/2024 14:30 EDT Appointment [facility] Radiology Nuclear Medicine and PET [address] [phone] 03/01/2024 8:00 EDT Appointment [facility] Radiology Nuclear Medicine and PET [address] [phone] 03/01/2024 9:30 EDT Appointment [facility] Radiology Nuclear Medicine and PET [address] [phone] documented as of this encounter Visit Diagnoses [...]
--- OUTSIDE RECORDS SUMMARY | 2024-01-02 06:14 | XMS_ITS | Encounter Summary ---
Author Organization [facility] Address [address] [place] [address] Care Team Providers Care Gas Engine Performance Engineer Name Role Phone Unavailable Primary Care Provider Unavailabl e Reason for Visit * Reason Onset Date Comments Labs Only 09/12/2020 Encounter Details Date Type Department Care Team (Late st Contact Info) Description 09/12/2020 Telephone [facility] Adult Primary Care - [address] [phone] James Partida, RN Labs Only Social History [...] 1653 EDT Incoming call from Relayed Tonja lAejandro's message below Patient verbalized understanding with no [...] Info) Description 02/21/2024 9:45 EDT Office Visit [facility] Adult Primary Care - [address] [phone] Carrington Calderon MD [address] [phone] 02/27/2024 8:30 EDT Telemedicine [facility] Sleep Program - [address] [phone] Dwight Colbert [address] [place] [phone] 02/29/2024 10:[address] [facility] Nuclear Medicine and PET - [address] 774201 02/29/2024 14:[address] [facility] and PET - [address] [phone] 03/01/2024 8:00 EDT Appointment [facility] Radiology Nuclear Medicine and PET - [address] [phone] 03/01/2024 9:30 EDT Appointment [facility] Radiology Nuclear Medicine and PET [address] [phone] documented as of this encounter Visit Diagnoses Not on filedocumented in this encounter
--- OUTSIDE RECORDS SUMMARY | 2024-01-02 06:14 | XMS_ITS | Encounter Summary ---
Author Organization [facility] Address [address] [place] [address] Care Team Providers Care Transportation Security Officer Name Role Phone Unavailable Primary Care [...] [facility] Adult Primary Care - [address] [phone] Carrington Calderon MD [address] [phone] 02/27/2024 8:30 EDT Telemedicine [facility] Sleep Program - [address] 116241 Dwight Colbert [address] [place] [address] [phone] 02/29/2024 10:30 EDT Appointment [facility] Radiology Nuclear Medicine and PET - [address] [phone] 02/29/2024 14:30 EDT Appointment [facility] Radiology Nuclear Medicine and PET - [address] [address] 03/01/2024 8:00 EDT [facility]ointment [facility] Radiology Nuclear Medicine and PET - [address] [address] 03/01/2024 9:30 EDT [facility] PET - [address] [address] documented as of this encounter Visit Diagnoses Not on filedocumented in this encounter
--- OUTSIDE RECORDS SUMMARY | 2024-01-02 06:14 | XMS_ITS | Encounter Summary ---
Author Organization [facility] Address [address] [place] [address] Care Team Providers Care Grounds/Maintenance Specialist Name Role Phone Unavailable Primary Care [...] [facility] Adult Primary Care - [address] [phone] Carrington Calderon MD [address] [address] 02/27/2024 8:30 EDT Telemedicine [facility] Sleep Program - [address] [phone] Dwight Colbert [address] [place] [address] [phone] 02/29/2024 10:[address] [facility] Radiology Nuclear Medicine and PET - [address] [phone] 02/29/2024 14:[address] [facility] Radiology Nuclear Medicine and PET - [address] [address] 03/01/2024 8:00 EDT Appointment [facility] Radiology Nuclear Medicine and PET - [address] [address] 03/01/2024 9:30 EDT Appointment [facility] Radiology Nuclear Medicine and PET - [address] [address] documented as of this encounter Visit Diagnoses Not on filedocumented in this encounter
--- OUTSIDE RECORDS SUMMARY | 2024-01-02 06:14 | XMS_ITS | Encounter Summary ---
Author Organization [facility] Address [address] [place] [address] Care Team Providers Care Chauffeur Airport Limousine Name Role Phone Unavailable Primary Care Provider Unavailabl e Encounter Details Date Type Department Care Team (Late st Contact Info) Description 09/11/2020 Community Health Team [facility] [address], [address] [place], [place] [phone] Briana Larson Social History Tobacco Use Types [...] patient as discussed. .. Adult Primary Care [place], [address] [place] [address] Total Time: 15 min phone, 20 min care coordination, 10 min charting Referral: Counseling Follow up: Consult only Status: Graduated documented in this encounter Plan of Treatment Upcoming Encounters Date Type Department Care Team (Late st Contact Info) Description 02/21/2024 9:45 EDT Office Visit [facility] Adult Primary Care - [address] 509051 Carrington Calderon MD [address] [address] 02/27/2024 8:30 EDT Telemedicine [facility] Sleep Program - [address] [phone] Dwight Colbert [address] [place] [address] [phone] 02/29/2024 10:30 EDT Appointment [facility] Radiology Nuclear Medicine and PET - [address] 470791 02/29/2024 14:30 EDT Appointment [facility] Radiology Nuclear Medicine and PET [address] 026881 03/01/2024 8:00 EDT Appointment [facility] Radiology Nuclear Medicine and PET [address] [phone] 03/01/2024 9:30 EDT Appointment [facility] Radiology Nuclear Medicine and PET [address] 744641 documented as of this encounter Visit Diagnoses Not on filedocumented in this encounter
--- OUTSIDE RECORDS SUMMARY | 2024-01-02 06:14 | XMS_ITS | Encounter Summary ---
Author Organization [facility] Address [address] [place] [address] Care Team Providers Care Assistant Purchasing Manager Name Role Phone Unavailable Primary Care [...] [facility] Adult [facility] Care - [address] [phone] Carrington Calderon MD 1 [facility] [place] [facility] 1 [place] [address] 02/27/2024 8:30 EDT Telemedicine [facility] Sleep Program - [address] 293941 Dwight Colbert [address] [place] [address] 537101 02/29/2024 10:30 EDT Appointment [facility] Radiology Nuclear Medicine and PET - [address] 764111 02/29/2024 14:30 EDT Appointment [facility] Radiology Nuclear Medicine and PET - [address] [address] 03/01/2024 8:00 EDT Appointment [facility] Radiology Nuclear Medicine and PET - [address] [address] 03/01/2024 9:30 EDT Appointment [facility] Radiology Nuclear Medicine and PET - [address] [address] documented as of this encounter Visit Diagnoses Not on filedocumented in this encounter
--- OUTSIDE RECORDS SUMMARY | 2024-01-02 06:14 | XMS_ITS | Encounter Summary ---
Author Organization [facility] Address [address] [place] [address] Care Team Providers Care Control Clerk Auditing Name Role Phone Unavailable Primary Care Provider Unavailabl e Reason for Visit * Reason Onset Date Comments Surgery Scheduling 08/19/2020 Encounter Details Date Type Department Care Team (Late st Contact Info) Description 08/19/2020 Telephone [facility] [address] [place], [place] [phone] Nimisha Bay MD 2 [facility] Medical Office Building, [address] [place] [address] Surgery Scheduling Social History Tobacco [...] [facility] - [address] [address] Carrington Calderon MD 1 [facility] 1 [place] [address] 02/27/2024 8:30 EDT Telemedicine [facility] Sleep Program - [address] [phone] Dwight Colbert [address] [place] [address] 02/29/2024 10:30 EDT Appointment [facility] Radiology Nuclear Medicine and PET - [address] [phone] 02/29/2024 14:30 EDT Appointment [facility] Radiology Nuclear Medicine and PET [address] [id number] 03/01/2024 8:00 EDT Appointment [facility] Radiology Nuclear Medicine and PET - [address] [phone] 03/01/2024 9:30 EDT Appointment [facility] Radiology Nuclear Medicine and PET - [address] 138771 documented as of this encounter Visit Diagnoses Not on filedocumented in this encounter
--- OUTSIDE RECORDS SUMMARY | 2024-01-02 06:15 | XMS_ITS | Encounter Summary ---
Author Organization [facility] Address [address] [place] [address] Care Team Providers Care Lift Team Technician Name Role Phone Unavailable Primary Care Provider Unavailabl e Reason for Visit * Reason Onset Date Comments Hospital Discharge Follow Up 08/11/2020 Encounter Details Date Type Department Care Team (Late st Contact Info) Description 08/11/2020 Telephone [facility] Adult Primary Care [address] [phone] Tonja Alejandro PA-C [address] [place] [address] [place] [phone] Hospital Discharge Follow Up Social History [...] sent in. * Telephone Encounter - Jesi Love, RN - 08/11/2020 1006 EST Hospital Discharge [...] [facility] Adult Primary Care - [address] 310201 Carrington Calderon MD [address] [address] 02/27/2024 8:30 EDT Telemedicine [facility] Sleep Program - [address] [address] Dwight Colbert [address] [place] [address] 577791 02/29/2024 10:30 EDT Appointment [facility] Radiology Nuclear Medicine and PET - [address] [address] 02/29/2024 14:30 EDT Appointment [facility] Radiology Nuclear Medicine and PET - [address] [address] 03/01/2024 8:00 EDT Appointment [facility] Radiology Nuclear Medicine and PET - [address] [address] 03/01/2024 9:30 EDT Appointment [facility] Radiology Nuclear Medicine and PET - [address] [address] documented as of this encounter Visit Diagnoses [...]
--- OUTSIDE RECORDS SUMMARY | 2024-01-02 06:15 | XMS_ITS | Encounter Summary ---
Author Organization [facility] Address [address] [place] [address] Care Team Providers Care Senior Systems Administrator Name Role Phone Unavailable Primary Care Provider Unavailabl e Reason for Visit * Reason Onset Date Comments No Show 07/16/2020 [place] 07/15/20 Encounter Details Date Type Department Care Team (Late st Contact Info) Description 07/16/2020 Telephone [facility] Endocrinology - [address] CDE [address] [facility] [address] [place] [address] No Show (Yohannes 07/15/20) Social [...] Visit [facility] Adult Primary Care [address] [address] Carrington Calderon MD 1 [facility] 1 [place] [address] 02/27/2024 8:30 EDT Telemedicine [facility] Sleep Program - [address] [address] Dwight Colbert [address] [place] [address] [phone] 02/29/2024 10:30 EDT [facility]ointment [facility] Radiology Nuclear Medicine and PET - [address] 712711 02/29/2024 14:30 EDT [facility]ointment [facility] Radiology Nuclear Medicine and PET - [address] 524451 03/01/2024 8:00 EDT [facility]ointment [facility] Radiology Nuclear Medicine and PET - [address] [phone] 03/01/2024 9:30 EDT Appointment [facility] Radiology Nuclear Medicine and PET - [address] [phone] documented as of this encounter Visit Diagnoses Not on filedocumented in this encounter
--- OUTSIDE RECORDS SUMMARY | 2024-01-02 06:15 | XMS_ITS | Encounter Summary ---
Author Organization [facility] Address [address] [place] [address] Care Team Providers Care Sole Ruffer Name Role Phone Unavailable Primary Care Provider Unavailabl e Encounter Details Date Type Department Care Team (Latest Contact Info) Description 08/12/2020 10:30 EST - 08/12/2020 23:59 EST Hospital Encounter [facility] Pre-Surgical Testing [address] [place], [place] [phone] Discharge Disposition: Home or Self Care Social [...] mL 3 12/04/2019 12/21/2021 lancets One Touch DelNovaled or other brand compatible with lancing device [...] instruct them to call us back at [phone] to report symptoms (If patient is in [...] Info) Description 02/21/2024 9:45 EDT Office Visit [facility] Adult Primary Care - [address] [phone] Carrington Calderon MD [address] [address] 02/27/2024 8:30 EDT Telemedicine [facility] Sleep Program - [address] 521071 Dwight Colbert [address] [place] [address] [phone] 02/29/2024 10:30 EDT Appointment [facility] Radiology Nuclear Medicine and PET - [address] 198431 02/29/2024 14:30 EDT Appointment [facility] Radiology Nuclear Medicine and PET - [address] 995181 03/01/2024 8:00 EDT Appointment [facility] Radiology Nuclear Medicine and PET [address] [phone] 03/01/2024 9:30 EDT Appointment [facility] Radiology Nuclear Medicine and PET [address] 329241 documented as of this encounter Visit Diagnoses Not on filedocumented in this encounter
--- OUTSIDE RECORDS SUMMARY | 2024-01-02 06:15 | XMS_ITS | Encounter Summary ---
Author Organization [facility] Address [address] [place] [address] Care Team Providers Care Enterprise Sales Person Name Role Phone Unavailable Primary Care [...] [facility] Adult Primary Care - [address] 793991 Carrington Calderon MD [address] [address] 02/27/2024 8:30 EDT Telemedicine [facility] Sleep Program - [address] [phone] Dwight Colbert [address] [place] [address] [phone] 02/29/2024 10:30 EDT Appointment [facility] Radiology Nuclear Medicine and PET - [address] 036581 02/29/2024 14:30 EDT Appointment [facility] Radiology Nuclear Medicine and PET - [address] [phone] 03/01/2024 8:00 EDT Appointment [facility] Radiology Nuclear Medicine and PET - [facility] [address] [place], [place] [phone] 03/01/2024 9:30 EDT Appointment [facility] Radiology Nuclear Medicine and PET - [address] [phone] documented as of this encounter Visit Diagnoses Not on filedocumented in this encounter
--- OUTSIDE RECORDS SUMMARY | 2024-01-02 06:15 | XMS_ITS | Encounter Summary ---
Author Organization [facility] Address [address] [place] [address] Care Team Providers Care Welt Beater Name Role Phone Unavailable Primary Care Provider [...] [facility] Adult Primary Care - [address] [phone] Carrington Calderon MD [address] [address] 02/27/2024 8:30 EDT Telemedicine [facility] Sleep Program - [address] 210391 Dwight Colbert [address] [place] [address] 623671 02/29/2024 10:30 EDT Appointment [facility] Radiology Nuclear Medicine and PET - [address] 711861 02/29/2024 14:30 EDT Appointment [facility] Radiology Nuclear Medicine and PET - [address] [phone] 03/01/2024 8:00 EDT Appointment [facility] Radiology Nuclear Medicine and PET - [facility] [address] [place], [place] [phone] 03/01/2024 9:30 EDT Appointment [facility] Radiology Nuclear Medicine and PET - [address] [phone] documented as of this encounter Visit Diagnoses Not on filedocumented in this encounter
--- OUTSIDE RECORDS SUMMARY | 2024-01-02 06:15 | XMS_ITS | Encounter Summary ---
Author Organization [facility] Address [address] [place] [address] Care Team Providers Care Painting Instructor Name Role Phone Unavailable Primary Care Provider Unavailabl e Reason for Visit * Reason Comments Pre-op Exam Encounter Details Date Type Department Care Team (Late st Contact Info) Description 07/28/2020 10:30 EST Office Visit [facility] [address] [place] [address] Fernanda Egan, DO [address] [place] [phone] Encounter for sterilization (Primary Dx) Social History [...] Egan D.O. 07/28/2020 11:05 Obstetrics/Gynecology PGY-1 Pager #[phone] * Whit Rae MD - 07/28/2020 1030 [...] Visit [facility] Adult Primary Care - [address] [phone] Carrington Calderon MD [address] [phone] 02/27/2024 8:30 EDT Telemedicine [facility] Sleep Program - [address] [phone] Dwight Colbert [address] [place] [address] 02/29/2024 10:30 EDT Appointment [facility] Radiology Nuclear Medicine and PET - [address] 483131 02/29/2024 14:30 EDT Appointment [facility] Radiology Nuclear Medicine and PET [address] [phone] 03/01/2024 8:00 EDT Appointment [facility] Radiology Nuclear Medicine and PET [address] [phone] 03/01/2024 9:30 EDT Appointment [facility] Radiology Nuclear Medicine and PET [address] [phone] documented as of this encounter Procedures Procedure Name Priority Date/Time Associated Diagnosis Comments HEMOGLOBIN A1C Routine 07/28/2020 11:25 EST Encounter for sterilization documented in this encounter Results * (ABNORMAL) SCREENING GLUCOSE (07/28/2020 11:25 EST) Glucose, Screening 260(H) 70 - 100 mg/dL 07/28/2020 12:39 EST [facility] Comment:Elevated screening g lucose value greater than 180 mg/dl, please order follow up Hemoglobin A1C. Blood VENOUS BLOOD / Unknown Venipuncture / Unknown 07/28/2020 11:25 EST 07/28/2020 12:04 EST Whit Rae MD CHEMISTRY & BLOOD GA S ORDERABLES [facility] [address] [place] [address] * (ABNORMAL) HEMOGLOBIN A1C (07/28/2020 11:25 EST) Hemoglobin A1c 9.7(H) <5.7 % 07/28/2020 14:20 EST [facility] Comment: Glycemic Status References: [...] Est Avg Glucose 232 mg/dL 14:20 EST [facility] Comment:The eAG represents t he A1c result expressed as average glucose in mg/dL. Blood VENOUS BLOOD / Unknown Venipuncture / Unknown 07/28/2020 11:25 EST 07/28/2020 11:50 EST Whit Rae MD CHEMISTRY & BLOOD GA S ORDERABLES [facility] [address] [place] [address] documented in this encounter Visit Diagnoses Diagnosis Encounter for sterilization- Primary Sterilization documented in this encounter
--- OUTSIDE RECORDS SUMMARY | 2024-01-02 06:15 | XMS_ITS | Encounter Summary ---
Author Organization [facility] Address [address] [place] [address] Care Team Providers Care Sales Process Manager Name Role Phone Unavailable Primary Care Provider Unavailabl e Reason for Visit * Reason Comments Telemedicine Video Visit Encounter Details Date Type Department Care Team (Late st Contact Info) Description 07/02/2020 11:30 EST Telemedicine [facility] Infectious Disease - [address] [phone] Mushtaq Light, DO 111 [facility] [address] [place] [address] Osteomyelitis of left foot, unspecified [...] Bone biopsy was polymicrobial (MSSA,??GBS,??S.??anginosus, prevotella) and??MRI [id number] distal phalanx osteomyelitis with possible early proximal [...] 12/05/19- Spine- told years ago ??? Diabetes ([facility]) ? A1c 10.3 on 11/28/2019 [...] FOREIGN BODIES:??None ?? SOCIAL HISTORY:? 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 Attends mandaeism service: Not on file ? Active member [...] few strep anginosus, moderate prevotella 05/03 covid-19 TIE BUYER swab: negative 05/04 blood cultures:06/09 bottles growing [...] Description 02/21/2024 9:45 EDT Office Visit [facility] Adult Primary Care - [address] 287471 Carrington Calderon MD 1 [facility] 1 [place] [phone] 02/27/2024 8:30 EDT Telemedicine [facility] Sleep Program - [address] [phone] Dwight Colbert [address] [place] [address] [phone] 02/29/2024 10:30 EDT Appointment [facility] Radiology Nuclear Medicine and PET - [address] [phone] 02/29/2024 14:30 EDT Appointment [facility] Radiology Nuclear Medicine and PET - [address] [address] 03/01/2024 8:00 EDT Appointment [facility] Radiology Nuclear Medicine and PET - [address] [address] 03/01/2024 9:30 EDT Appointment [facility] Radiology Nuclear Medicine and PET - [address] [address] documented as of this encounter Visit Diagnoses Diagnosis Osteomyelitis of left foot, unspecified type (HCC-CMS)- Primary documented in this encounter
--- OUTSIDE RECORDS SUMMARY | 2024-01-02 06:15 | XMS_ITS | Encounter Summary ---
Author Organization [facility] Address [address] [place] [address] Care Team Providers Care Fruit Rancher Name Role Phone Unavailable Primary Care Provider [...] [facility] Adult Primary Care - [address] 612201 Carrington Calderon MD [address] [address] 02/27/2024 8:30 EDT Telemedicine [facility] Sleep Program - [address] [phone] Dwight Colbert [address] [place] [address] [phone] 02/29/2024 10:30 EDT Appointment [facility] Radiology Nuclear Medicine and PET - [address] 500691 02/29/2024 14:30 EDT Appointment [facility] Radiology Nuclear Medicine and PET - [address] [phone] 03/01/2024 8:00 EDT Appointment [facility] Radiology Nuclear Medicine and PET - [facility] [address] [place], [place] [phone] 03/01/2024 9:30 EDT Appointment [facility] Radiology Nuclear Medicine and PET - [address] [phone] documented as of this encounter Visit Diagnoses Not on filedocumented in this encounter
--- OUTSIDE RECORDS SUMMARY | 2024-01-02 06:15 | XMS_ITS | Encounter Summary ---
Author Organization [facility] Address [address] [place] [address] Care Team Providers Care Street Sweeper Name Role Phone Unavailable Primary Care Provider Unavailabl e Reason for Visit * Reason Comments Emesis Seen tuesday for n/v/ d back tonight for continued n/v/d, her pcp recommended she come in for reeval and possible scan. Pt reports diffuse abdominal pain. Encounter Details Date Type Department Care Team (Late st Contact Info) Description 08/06/2020 3:57 EST - 08/06/2020 8:59 EST Emergency [facility] Emergency Department - [facility] [address] [place] [address] Kylah Whitaker PA-C [address] [facility], Level [address] [place] [phone] Jeremiah Hein PA-C [address] [place] [phone] Non-intractable vomiting with nausea, unspecified vomiting type [...] through Care Everywhere. * Nausea and Vomiting (Wolof) documented in this encounter Medications at Time [...] Means Destination Comment s Home or Self Group Home driving. documented in this encounter ED Notes [...] Abnormality Status --------- ------ POCT URINE DIPSTICK, CLI...[[id number]] POCT CSN BARCODE URINE D...[[id number]] Please view results for these tests on the individual orders. POCT TEST, CLINITEK ORDER Narrative: The following orders were created for panel order POCT TEST, CLINITEK ORDER. Procedure Abnormality Status --------- ------ POCT TEST, CLI...[[id number]] POCT CSN BARCODE URINE P...[[id number]] Please view results for these tests on [...] results. * Angelica Stone RN - 08/06/2020 5677 EST I assumed care of pt at this time, the pt is sleeping. Visitor at the bedside. * Mignon Young RN - 08/06/2020 0658 EST Report given MARCELO Dominguez * Kylah Whitaker PA-C - 08/06/2020 0443 EST This patient received an evaluation and medical screening exam for emergent medical conditions at the [facility] on 08/06/2020 Scribe attestation: This documentation [...] [facility] Adult Primary Care - [address] [phone] Carrington Calderon MD 1 [facility] 1 [place] [address] 02/27/2024 8:30 EDT Telemedicine [facility] Sleep Program - [address] 212871 Dwight Colbert [address] [place] [phone] 02/29/2024 10:30 EDT Appointment [facility] Radiology Nuclear Medicine and PET [address] [phone] 02/29/2024 14:30 EDT Appointment [facility] Radiology Nuclear Medicine and PET [address] [phone] 03/01/2024 8:00 EDT Appointment [facility] Radiology Nuclear Medicine and PET [address] [phone] 03/01/2024 9:30 EDT Appointment [facility] Radiology Nuclear Medicine and PET [address] [phone] documented as of this encounter Procedures Procedure [...] No acute fracture or suspicious osseous lesion. Orthopedic Dentist: No additional pathology identified. Procedure Note Broderick Rossi MD - 08/06/2020 CT ABDOMEN PELVIS W [...] No acute fracture or suspicious osseous lesion. Orthopedic Dentist: No additional pathology identified. IMPRESSION 1. No acute abnormality identified in the abdomen or pelvis. 2. Small nonobstructing left intrarenal calculus. 3. Small hiatal hernia. I have personally reviewed the images and the above interpretation andagree with the findings. Kylah Whitaker PA-C IMG CT ORDERABLES * LACTIC ACID (08/06/2020 5:06 EST) Lactic Acid 1.5 <=2.0 mmol/L 08/06/2020 5:29 EST [facility] Blood VENOUS BLOOD / Unknown Venipuncture / Unknown 08/06/2020 5:06 EST 08/06/2020 5:17 EST Kylah Whitaker PA-C CHEMISTRY & BLOOD GA S ORDERABLES [facility] [address] [place] [address] * LIPASE (08/06/2020 4:13 EST) Lipase 141 <251 U/L 08/06/2020 5:00 [facility] Blood VENOUS BLOOD / Unknown Venipuncture / Unknown 08/06/2020 4:13 EST 08/06/2020 4:19 EST Kylah Whitaker PA-C CHEMISTRY & BLOOD GA S ORDERABLES Performing Organization Address [facility] Co de Phone Number [facility] [address] [place] [address] * (ABNORMAL) COMPREHENSIVE METABOLIC PANEL (CMP) (08/06/2020 4:13 EST) Sodium 139 136 - 145 mEq/L 08/06/2020 5:00 [facility] Potassium 3.4(L) 3.5 - 5.0 mEq/L 08/06/2020 5:00 [facility] Comment: NOTE: Interpret with caution. Prolonged sample storage may alter the result. Chloride 99 96 - 110 mEq/L 08/06/2020 5:00 [facility] CO2 Total 25 22 - 32 mEq/L 08/06/2020 5:00 [facility] Comment: NOTE: Interpret with caution. Prolonged sample storage may alter the result. Glucose 255(H) 70 - 100 mg/dL 08/06/2020 5:00 [facility] BUN 12 10 - 26 mg/dL 08/06/2020 5:00 [facility] Creatinine 0.52 0.52 - 1.04 mg/dL 08/06/2020 5:00 [facility] eGFR 124 >60 mL/min/1.7 3m2 08/06/2020 5:00 [facility] Comment:eGFR calculated gil curtis CKD-EPI equation for non- Americans. Multiply eGFR by 1.16 for patients. Total Protein 7.0 6.3 - 8.2 g/dL 08/06/2020 5:00 [facility] Albumin 4.2 3.4 - 4.9 g/dL 08/06/2020 5:00 [facility] Alkaline Phosphatase 92 38 - 126 U/L 08/06/2020 5:00 [facility] AST 29 15 - 46 U/L 08/06/2020 5:00 [facility] ALT 23 <35 U/L 08/06/2020 5:00 [facility] Bilirubin, Total 0.6 <1.4 mg/dL 08/07/19 5:00 [facility] Calcium 9.4 8.5 - 10.5 mg/dL 08/06/2020 5:00 [facility] Calculated Calcium 9.2 8.5 - 10.5 mg/dL 08/06/2020 5:00 [facility] Blood VENOUS BLOOD / Unknown Venipuncture / Unknown 08/06/2020 4:13 EST 08/06/2020 4:19 EST Kylah Whitaker PA-C CHEMISTRY & BLOOD GA S ORDERABLES [facility] [address] [place] [address] * (ABNORMAL) COMPLETE BLOOD COUNT AND DIFFERENTIAL (08/06/2020 4:13 EST) WBC 13.81(H) 4.00 - 12.40 K/cmm 08/06/2020 5:13 [facility] RBC 4.57 3.86 - 5.04 M/cmm 08/06/2020 5:13 [facility] Hemoglobin 14.0 11.6 - 15.2 gm/dL 08/06/2020 5:13 [facility] HCT 39.4 34.9 - 44.4 % 08/06/2020 5:13 [facility] MCV 86 81 - 98 fl 08/06/2020 5:13 [facility] MCH 30.6 26.7 - 33.3 pg 08/06/2020 5:13 [facility] MCHC 35.5 32.1 - 35.9 gm/dL 08/06/2020 5:13 [facility] RDW-CV 12.1 <14.7 % 08/06/2020 5:13 [facility] RDW-SD 38.3 <50.4 fl 08/06/2020 5:13 [facility] PLT 427(H) 141 - 377 K/cmm 08/06/2020 5:13 [facility] MPV 9.9 9.5 - 12.7 fl 08/06/2020 5:13 [facility] % Neutrophils 51.5 % 08/06/2020 5:13 [facility] % Lymphocytes 36.1 % 08/06/2020 5:13 [facility] % Monocytes 9.1 % 08/06/2020 5:13 [facility] % Eosinophils 2.2 % 08/06/2020 5:13 [facility] % Basophils 0.7 % 08/06/2020 5:13 [facility] % Immature Grans 0.4 % 08/07/19 5:13 [facility] Absolute Neutrophils 7.11 2.20 - 8.85 K/cmm 08/06/2020 5:13 [facility] Absolute Lymphocytes 4.98(H) 1.09 - 3.30 K/cmm 08/06/2020 5:13 [facility] Absolute Monocytes 1.26(H) 0.10 - 0.80 K/cmm 08/06/2020 5:13 [facility] Absolute Eosinophils 0.31 0.03 - 0.61 K/cmm 08/06/2020 5:13 [facility] ABS Basophils 0.10 0.01 - 0.11 K/cmm 08/06/2020 5:13 [facility] Absolute Immature Grans 0.05 0.00 - 0.06 K/cmm 08/06/2020 5:13 [facility] Type of Differential: Auto 08/06/2020 5:13 [facility] Blood VENOUS BLOOD / Unknown Venipuncture / Unknown 08/06/2020 4:13 EST 08/06/2020 4:19 EST Kylah Julianne PA-C PACKAGES & DNA PROBE ORDERABLES Performing Organization Address [facility]/ZIP Co de Phone Number [facility] [address] [place] [address] * HOLD SST (08/06/2020 4:13 EST) Hold Hold 08/06/2020 5:32 EST [facility] Blood VENOUS BLOOD / Unknown Venipuncture / Unknown 08/06/2020 4:13 EST 08/06/2020 4:19 EST Kylah Larow PA-C LAB INFO SERVICE AND SUPPORT & PHONE RESULT Performing Organization Address [facility]/ZIP Co de Phone Number [facility] [address] [place] [address] * HOLD LAVENDER TOP (08/06/2020 4:13 EST) Hold Hold 08/06/2020 5:32 EST [facility] Blood VENOUS BLOOD / Unknown Venipuncture / Unknown 08/06/2020 4:13 EST 08/06/2020 4:19 EST Kylah Larow PA-C LAB INFO SERVICE AND SUPPORT & PHONE RESULT Performing Organization Address [facility]/ZIP Co de Phone Number [facility] [address] [place] [address] * HOLD GREEN TOP (08/06/2020 4:13 EST) Hold Hold 08/06/2020 5:32 EST [facility] Blood VENOUS BLOOD / Unknown Venipuncture / Unknown 08/06/2020 4:13 EST 08/06/2020 4:19 EST Kylah Larow PA-C LAB INFO SERVICE AND SUPPORT & PHONE RESULT [facility] [address] [place] [address] * HOLD BLUE TOP (08/06/2020 4:13 EST) Hold Hold 08/06/2020 5:32 EST [facility] Blood VENOUS BLOOD / Unknown Venipuncture / Unknown 08/06/2020 4:13 EST 08/06/2020 4:19 EST Kylah Whitaker PA-C LAB INFO SERVICE AND SUPPORT & PHONE RESULT [facility] [address] [place] [address] documented in this encounter Visit Diagnoses Diagnosis [...] (Given - Provid er: Mignon Young RN) metoclopramide (REGLAN) injection 10 mg (COMPLETED) 10 mg, intravenous, NOW X1, 1 dose, On Tue08/06/20 at 0500, STAT 0506 (Given - Provid er: Mignon Young RN) ondansetron (PF) (ZOFRAN) injection 4 mg (COMPLETED) 4 mg, intravenous, NOW X1, 1 dose, On Tue08/06/20 at 0415, STAT 0417 (Given - Provid er: Mignon Young RN) documented in this encounter
--- OUTSIDE RECORDS SUMMARY | 2024-01-02 06:15 | XMS_ITS | Encounter Summary ---
Author Organization [facility] Address [address] [place] [address] Care Team Providers Care Lineman Service Or Work Dispatcher Name Role Phone Unavailable Primary Care Provider Unavailabl e Reason for Visit * Reason Comments Follow-up Encounter Details Date Type Department Care Team (Latest Contact Info) Description 08/01/2020 15:00 EST Office Visit [facility] Adult Primary Care - [address] [phone] Tonja Alejandro PA-C [address] [place] [address] [place] [phone] Musculoskeletal pain (Primary Dx); Type 2 diabetes mellitus with hyperosmolarity without coma, with long-term current use of insulin ([facility]); Neuropathy; Depression, unspecified depression type; Chronic [...] miscarriage. She has been following up with [facility] [facility] and is ultimately scheduled for hysterectomy. This [...] healthy eating -Continue to follow-up with a edger tailer History of multiple miscarriages -Continue follow-up with CYTOGEN[employer] LABORATORY MANAGER -Plan for hysterectomy next month Left toe [...] patient is interested in seeing a social work coordinator. Will order this. Chronic back pain -Start with x-rays of thoracic and lumbar spine. -Consider MRI of thoracic spine/lumbar spine due to radicular pain Will call patient on Tuesday for further insulin instructions. Tonja Alejandro PA-C [facility] 08/01/2020 16:34 I spent a total of [...] [facility] [address] [phone] Carrington Calderon MD [address] [phone] 02/27/2024 8:30 EDT Telemedicine [facility] Sleep Program - [address] [address] Dwight Colbert [address] [place] [phone] 02/29/2024 10:[address] [facility] Radiology Nuclear Medicine and PET - [address] [phone] 02/29/2024 14:[address] [facility] Radiology Nuclear Medicine and PET - [address] [phone] 03/01/2024 8:[address] [facility] Radiology Nuclear Medicine and PET - [address] [address] 03/01/2024 9:[address] [facility] Radiology Nuclear Medicine and PET - [address] [phone] documented as of this encounter Visit Diagnoses Diagnosis Musculoskeletal pain- Primary Mylagia and myositis, unspecified Type 2 diabetes mellitus with hyperosmolarity without coma, with long-term current use of insulin ([facility]) Neuropathy Mononeuritis of unspecified site Depression, [...]
--- OUTSIDE RECORDS SUMMARY | 2024-01-02 06:15 | XMS_ITS | Encounter Summary ---
Author Organization [facility] Address [address] [place] [address] Care Team Providers Care Assistant Designer Name Role Phone Unavailable Primary Care [...] [facility] Adult Primary Care - [address] [phone] Carrington Calderon MD [address] [phone] 02/27/2024 8:30 EDT Telemedicine [facility] Sleep Program - [address] [phone] Dwight Colbert [address] [place] [phone] 02/29/2024 10:30 EDT Appointment [facility] Radiology Nuclear Medicine and PET - [address] [phone] 02/29/2024 14:30 EDT Appointment [facility] Radiology Nuclear Medicine and PET - [address] [phone] 03/01/2024 8:00 EDT Appointment [facility] Radiology Nuclear Medicine and PET - [facility] [address] [place], [place] [phone] 03/01/2024 9:30 EDT Appointment [facility] Radiology Nuclear Medicine and PET - [address] [phone] documented as of this encounter Visit Diagnoses Not on filedocumented in this encounter
--- OUTSIDE RECORDS SUMMARY | 2024-01-02 06:15 | XMS_ITS | Encounter Summary ---
Author Organization [facility] Address [address] [place] [address] Care Team Providers Care Flux Tube Attendant Name Role Phone Unavailable Primary Care Provider Unavailabl e Reason for Visit * Reason Onset Date Comments Advice Only 08/07/2020 Encounter Details Date Type Department Care Team (Late st Contact Info) Description 08/07/2020 Telephone [facility] Endocrinology - [facility] [address] [place] [address] Sara Zafar NP [address] [facility] [address] [place] [phone] Advice Only Social History Tobacco [...] in office. * Telephone Encounter - Valencia Croreia - 08/07/2020 1330 EST Patient's PCP calling to speak to the provider regarding patients insulin. Asked keno writer/runner to zandra High Priority. PCP paged Sara Zafar thru PAS with no response documented in this encounter Plan of Treatment Upcoming Encounters Date Type Department Care Team (Late st Contact Info) Description 02/21/2024 9:45 EDT Office Visit [facility] Adult Primary Care - [address] [phone] Carrington Calderon MD 1 [facility] 1 [place] [address] 02/27/2024 8:30 EDT Telemedicine [facility] Sleep Program - [address] [phone] Dwight Colbert [address] [place] [phone] 02/29/2024 10:30 EDT Appointment [facility] Radiology Nuclear Medicine and PET - [address] [phone] 02/29/2024 14:30 EDT Appointment [facility] Radiology Nuclear Medicine and PET [address] [phone] 03/01/2024 8:00 EDT Appointment [facility] Radiology Nuclear Medicine and PET - [address] [phone] 03/01/2024 9:30 EDT Appointment [facility] Radiology Nuclear Medicine and PET [address] [phone] documented as of this encounter Visit Diagnoses Not on filedocumented in this encounter
--- OUTSIDE RECORDS SUMMARY | 2024-01-02 06:15 | XMS_ITS | Encounter Summary ---
Author Organization [facility] Address [address] [place] [address] Care Team Providers Care Electrician Assistant Name Role Phone Unavailable Primary Care Provider Unavailabl e Reason for Visit * Reason Comments Telemedicine Video Visit * Consult (Routine) - Order Cancelled Specialty Diagnoses / Procedures Referred By Contlesli t Referred To Contact Endocrinology Diagnoses Type 2 diabetes mellitus with hyperglycemia, with long-term current use of insulin ([facility]) Sara Zafar NP [address] [place] [phone] [facility] Endocrinology [address] [place] [address] Referral ID Status Reason Start Date Expiration Date Visits Requested Visits Authorized [id number] Order Cancelled Specialty Services Required 0 1 1 Encounter Details Date Type Department Care Team (Late st Contact Info) Description 07/01/2020 13:00 EST Nutrition [facility] Endocrinology - [address] CDE [address] [place] [phone] Type 2 diabetes mellitus with hyperglycemia, with long-term current use of insulin ([facility]) (Primary Dx) Social History Tobacco [...] Bran cereal with milk and coffee Lunch: [place] sandwich on whole grain bread Dinner: Chicken, [...] Info) Description 02/21/2024 9:45 EDT Office Visit [facility] Adult Primary Care - [address] [address] Carrington Calderon MD [address] [phone] 02/27/2024 8:30 EDT Telemedicine [facility] Sleep Program - [address] [phone] Dwight Colbert [address] [place] [phone] 02/29/2024 10:30 EDT Appointment [facility] Radiology Nuclear Medicine and PET [address] [phone] 02/29/2024 14:30 EDT Appointment [facility] Radiology Nuclear Medicine and PET [address] [address] 03/01/2024 8:00 EDT Appointment [facility] Radiology Nuclear Medicine and PET [address] [phone] 03/01/2024 9:30 EDT Appointment [facility] Radiology Nuclear Medicine and PET [address] [phone] documented as of this encounter Visit Diagnoses Diagnosis Type 2 diabetes mellitus with hyperglycemia, with long-term current use of insulin ([facility])- Primary documented in this encounter
--- OUTSIDE RECORDS SUMMARY | 2024-01-02 06:15 | XMS_ITS | Encounter Summary ---
Author Organization [facility] Address [address] [place] [address] Care Team Providers Care Surveillance Monitor Name Role Phone Unavailable Primary Care Provider Unavailabl e Reason for Referral * Radiology Services (Routine) - Closed Specialty Diagnoses / Procedures Referred By Contac t Referred To Contact Nuclear Medicine Diagnoses Generalized abdominal pain Emesis, persistent Type 2 diabetes mellitus with hyperosmolarity without coma, with long-term current use of insulin ([facility]) Procedures NM GASTRIC EMPTYING SOLID Broderick Irene MD [address] [place] [address] Referral ID Status Reason Start Date Expiration Date Visits Re quested Visits Authorized [id number] Closed 08/10/2020 1 1 Reason for Visit [...] Expiration Date Visits Re quested Visits Authorized [id number] 1 1 Encounter Details Date Type Department Care Team (Late st Contact Info) Description 08/08/2020 18:57 EST - 08/10/2020 13:56 EST Hospital Encounter [facility] General Medicine Unit [address] [place] [address] Elise Charles MD 111 [facility], Level 1 [place] [address] Keshav Dumont MD [address] [address] Bouchra Costello MD [address] [address] Generalized abdominal pain (Primary Dx); Emesis, persistent; Type 2 diabetes mellitus with hyperosmolarity without coma, with long-term current use of insulin ([facility]); Dehydration; Gastroparesis Discharge Disposition: Home or Self [...] LR. 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 [...] Component Value Units Date/Time Bacterial Culture, Blood [[id number]] Collected: 08/08/202058 Lab Status: In process Specimen: Blood, Venous Updated: 08/08/202116 Bacterial Culture, Blood [[id number]] Collected: 08/08/202099 Lab Status: In process Specimen: Blood, Venous Updated: 08/08/202116 Upcoming Appointments Aug 12, 2020 10:30 PAT Call with [facility] PAT CALL ROOM 4 [facility] Pre-Surgical Testing (--) [address] [facility] [address] Aug 17, 2020 9:00 Mobile Lab Testing with [facility] Through Testing [facility] - [facility] ([facility] All Departments) [address] [place] [id number] Turning Sander Tender: Review appointment date and time above. Arrival Instructions: Before I let you go, I need to read you a set of instructions. Please provide me with your full attention. The testing site is located at [address] [place] [address]. When you pull into the entrance stay [...] Follow Up Visit with Sara Zafar APRN [facility] Endocrinology - [place] (--) [address] [place] [address] Sep 04, 2020 16:15 (Arrive by 16:00) Post Op Visit with Clarke Joseph MD [facility] Women's Services [facility] (--) [address] [facility] [address] Sep 10, 2020 15:00 Office Visit with Elza Navarro DPM [facility] Foot & Ankle Program - [facility] (--) [address] [facility] [address] [place] [facility] [address] Follow-up appointments and procedures Amb Consult/Follow Up [...] Irene DO Internal Medicine PGY-1 Cortext preferred, #[id number] (via PAS) 08/10/20 11:11 Attestation: Pt seen and examined. I have reviewed Dr. Irene's note and agree with his summary asoutlined above. DOS 08/10/2020. Bouchra Costello MD, MPH documented in this encounter Discharge Instructions * Discharge Instr - AVS First Page* Broderick Irene MD - 08/10/2020 8:24 EST Please follow-up with your PCP as soon as able Please follow-up with your hospice physician We have ordered you a Gastric Emptying [...] any other concerns. Thank you for choosing [facility] for your care! documented in this [...] Type of housing (single family, condo, apartment, residential, single room occupancy, [facility] funded hotel room, group snf) - duplex Who does the patient live with? Spouse and roommate Does the patient have access to their own bedroom/bathroom/kitchen - or is it shared with others? shared Name of housing complex (ex [employer] [facility], [facility], etc)- N/A Housing Authority/Managing Organization - N/A Community Care Providers (caseworker, [facility] nurse, etc) name and contact information- none [...] For Finances: No TRANSPORTATION: Transportation: Family CULTURAL, LATTER DAY and/or LANGUAGE factors affecting health care/discharge planning: [...] Health Services: None DME Provider: None Pharmacy: [id number] - [facility] [address] [facility] [address] [facility] ([facility]) - [address] [address] Home Health: not prior to admission Other: none POST HOSPITAL TRANSITION PLAN: Home with support from spouse Field Sales Trainer spoke to the patient's spouse. No home health needs identified at this time. Her spouse can transport her home when she is medically ready for discharge. PEGGY LAMAS RN CM MSN 08/09/2020 14:44 public information relations manager * Bouchra Costello MD - 08/09/2020 [...] this morning. Tolerated a couple bites of bulgarian muffin as well as taking liquid PO [...] / drinking now - Push PO fluids --Ardmore 10 QID prn --Zofran 4 mg Q 8 prn - Consider outpatient EGD - Would likely benefit from gastric emptying study however unfortunately they are not offered on the weekends. If she continues to improve at her current rate will likely defer to outpatient. ?? #T2DM: A1c 9.7 07/28/20 --Continue dose reduced glargine 30 (from port captain 40) --Hold mealtime insulin while not taking PO --SSI --Gabapentin 100 BID and 300 at bedtime ?? #Anxiety: --port captain lorazepam 0.5 mg TID prn Code [...] study Broderick Irene, DO Internal Medicine PGY-1, #[id number] 08/09/20 9:56 Attestation: Pt seen and examined; [...] told years ago ??? Depression ??? Diabetes ([facility]) A1c 10.3 on 11/28/2019 - poorly controlled ??? Difficulty opening mouth 06/13/2020 pain with opening mouth wide ??? Does not exercise 06/13/2020 due to infected toe ??? History of general anesthesia ??? Hx of ectopic 06/20/2020 ??? Irritable bowel syndrome 06/13/2020 ? ? Nausea & vomiting occasionally ??? Obesity, unspecified ??? Osteomyelitis ([facility]) of left great toe ??? Peripheral neuropathy [...] --D5 LR for 1L @ 100 cc/hr --Ardmore 10 QID prn --Zofran 4 mg Q 8 prn #T2DM: A1c 9.7 07/28/20 --Dose reduce glargine to 30 from port captain 40 --Hold mealtime insulin while not taking PO --SSI --Gabapentin 100 BID and 300 at bedtime #Anxiety: --port captain lorazepam 0.5 mg TID prn VTE [...] UA consistent with starvation ketosis. 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 Initially concern for AMS but LP [...] exam for emergent medical conditions at the [facility] on 08/08/2020. This note was created and [...] She has had two visits to the [facility] ED prior to today for similar symptoms. [...] and repeat procedure Alternatives discussed: No treatment [facility] protocol: Procedure explained and questions answered to [...] for UTI. The patient presents to the [facility] ED endorsing abdominal pain accompanied by nausea w/emesis since early Tuesday morning. Of note, the patient has been evaluated at the [facility] ED twice this week prior to the [...] [facility] [place] [address] Carrington Calderon MD 1 [facility] 1 [place] [address] 02/27/2024 8:30 EDT Telemedicine [facility] Sleep Program - [address] [place] [address] [place] [address] Dwight Colbert [address] [place] [address] 02/29/2024 10:30 [facility] - [address] [address] 02/29/2024 14:[address] [facility] Radiology Nuclear Medicine and PET [address] [address] 03/01/2024 8:[address] [facility] Radiology Nuclear Medicine and PET - [address] [address] 03/01/2024 9:[address] [facility] Radiology Nuclear Medicine and PET - [address] [address] documented as of this encounter Procedures Procedure [...] for solid food. References: Manny et al. [place] Journal of Gastroenterology 2000. Kev et al. Gastroenterology 2006 Roshni et al. [place] Journal of Gastroenterology 2006. Narrative 09/09/2020 16:10 [...] ( Delayed over 10% ) Procedure Note Peoln Thayer MD - 09/09/2020 NM GASTRIC EMPTYING [...] for solid food. References: Manny et al. [place] Journal of Gastroenterology 2000. Kev et al. Gastroenterology 2006 Roshni et al. [place] Journal of Gastroenterology 2006. Broderick Irene MD IMG NM ORDERABLES * ECG REPORT - SCANNED (08/25/2020 13:23 EDT) 08/25/2020 13:2 [address] Maintenance Supervisor PROCEDURE/MINOR BRAULIO GICAL ORDERABLES * (ABNORMAL) POCT GLUCOSE, INTERFACED (08/10/2020 11:56 EST) Glucose, POC 157(H) 70 - 100 mg/dL 08/10/2020 12:01 [facility] [place] digger [place] [id number] 08/10/2020 12:01 EST [facility] HN LAB POC COMMENT (GLUCOSE) Test Performed by Nursing Services 08/10/2020 12:01 [facility] Blood CAPILLARY BLOOD / Unknown 08/10/2020 11:56 EST 08/10/2020 12:01 EST Mervin Kamara MD POINT OF CARE TEST O RDERABLES [facility] [address] [place] [address] * (ABNORMAL) POCT GLUCOSE, INTERFACED (08/10/2020 7:13 EST) Glucose, POC 195(H) 70 - 100 mg/dL 08/10/2020 7:15 EST [facility] hole digger ID [id number] 08/10/2020 7:15 EST [facility] HN LAB POC COMMENT (GLUCOSE) Test Performed by Nursing Services 08/10/2020 7:15 [facility] Blood CAPILLARY BLOOD / Unknown 08/10/2020 7:13 EST 08/10/2020 7:15 EST Mervin Kamara MD POINT OF CARE TEST O RDERABLES Performing Organization Address [facility] de Phone Number [facility] [address] [place] [address] * CREATININE (08/10/2020 6:39 EST) Creatinine 0.60 0.52 - 1.04 mg/dL 08/10/2020 7:52 [facility] eGFR 118 >60 mL/min/1.7 3m2 08/10/2020 7:52 [facility] Comment:eGFR calculated gil curtis CKD-EPI equation for non- Americans. Multiply eGFR by 1.16 for patients. Blood VENOUS BLOOD / Unknown Venipuncture / Unknown 08/10/2020 6:39 EST 08/10/2020 7:22 EST Mervin Kamara MD CHEMISTRY & BLOOD GA S ORDERABLES Performing Organization Address [facility] Co de Phone Number [facility] [address] [place] [address] * ELECTROLYTES (08/10/2020 6:39 EST) Sodium 138 136 - 145 mEq/L 08/10/2020 7:52 [facility] Potassium 3.7 3.5 - 5.0 mEq/L 08/10/2020 7:52 [facility] Chloride 96 96 - 110 mEq/L 08/10/2020 7:52 [facility] CO2 Total 31 22 - 32 mEq/L 08/10/2020 7:52 [facility] Blood VENOUS BLOOD / Unknown Venipuncture / Unknown 08/10/2020 6:39 EST 08/10/2020 7:22 EST Mervin Kamara MD CHEMISTRY & BLOOD GA S ORDERABLES Performing Organization Address City/[facility]/ZIP Co de Phone Number [facility] [address] [place] [address] * (ABNORMAL) COMPLETE BLOOD COUNT (08/10/2020 6:39 EST) WBC 10.21 4.00 - 12.40 K/cmm 08/10/2020 7:13 [facility] RBC 4.70 3.86 - 5.04 M/cmm 08/10/2020 7:13 [facility] Hemoglobin 14.6 11.6 - 15.2 gm/dL 08/10/2020 7:13 [facility] HCT 40.3 34.9 - 44.4 % 08/10/2020 7:13 [facility] MCV 86 81 - 98 fl 08/10/2020 7:13 [facility] MCH 31.1 26.7 - 33.3 pg 08/10/2020 7:13 [facility] MCHC 36.2(H) 32.1 - 35.9 gm/dL 08/10/2020 7:13 [facility] RDW-CV 12.0 <14.7 % 08/10/2020 7:13 [facility] RDW-SD 37.5 <50.4 fl 08/10/2020 7:13 [facility] PLT 343 141 - 377 K/cmm 08/10/2020 7:13 [facility] MPV 9.8 9.5 - 12.7 fl 08/10/2020 7:13 [facility] Blood VENOUS BLOOD / Unknown Venipuncture / Unknown 08/10/2020 6:39 EST 08/10/2020 7:00 EST Mervin Kamara MD HEMATOLOGY & PF4 ORD ERABLES [facility] [address] [place] [address] * (ABNORMAL) POCT GLUCOSE, INTERFACED (08/09/2020 20:46 EST) Glucose, POC 218(H) 70 - 100 mg/dL 08/09/2020 20:54 [facility] hole [place]ger ID [id number] 08/09/2020 20:54 [facility] HN LAB POC COMMENT (GLUCOSE) Test Performed by Nursing Services 08/09/2020 20:54 [facility] Blood CAPILLARY BLOOD / Unknown 08/09/2020 20:46 EST 08/09/2020 20:54 EST Mervin Kamara MD POINT OF CARE TEST O MARILIA [facility] [address] [place] [address] * (ABNORMAL) POCT GLUCOSE, INTERFACED (08/09/2020 17:06 EST) Glucose, POC 209(H) 70 - 100 mg/dL 08/09/2020 17:11 [facility] hole [place]ger ID [id number] 08/09/2020 17:11 [facility] HN LAB POC COMMENT (GLUCOSE) Test Performed by Nursing Services 08/09/2020 17:11 [facility] Blood CAPILLARY BLOOD / Unknown 08/09/2020 17:06 EST 08/09/2020 17:10 EST Mervin Kamara MD POINT OF CARE TEST O MARILIA [facility] [address] [place] [address] * (ABNORMAL) POCT GLUCOSE, INTERFACED (08/09/2020 13:22 EST) Glucose, POC 244(H) 70 - 100 mg/dL 08/09/2020 13:24 [facility] hole digger ID [id number] 08/09/2020 13:24 [facility] HN LAB POC COMMENT (GLUCOSE) Test Performed by Nursing Services 08/09/2020 13:24 [facility] Blood CAPILLARY BLOOD / Unknown 08/09/2020 13:22 EST 08/09/2020 13:24 EST Mervin Kamara MD POINT OF CARE TEST O RDERABLES [facility] [address] [place] [address] * (ABNORMAL) POCT GLUCOSE, INTERFACED (08/09/2020 9:23 EST) Glucose, POC 179(H) 70 - 100 mg/dL 08/09/2020 9:24 EST [facility] [place] ID [id number] 08/09/2020 9:24 EST [facility] HN LAB POC COMMENT (GLUCOSE) Test Performed by Nursing Services 08/09/2020 9:24 EST [facility] Blood CAPILLARY BLOOD / Unknown 08/09/2020 9:23 EST 08/09/2020 9:24 EST Keshav Dumont MD POINT OF CARE TEST ORDERABLES Performing Organization Address [facility] Co de Phone Number [facility] [address] [place] [address] * (ABNORMAL) CREATININE (08/09/2020 7:04 EST) Creatinine 0.47(L) 0.52 - 1.04 mg/dL 08/09/2020 8:32 EST [facility] eGFR 128 >60 mL/min/1.7 3m2 08/09/2020 8:32 EST [facility] Comment:eGFR calculated gil curtis CKD-EPI equation for non- Americans. Multiply eGFR by 1.16 for patients. Blood VENOUS BLOOD / Unknown Venipuncture / Unknown 08/09/2020 7:04 EST 08/09/2020 7:58 EST Mervin Kamara MD CHEMISTRY & BLOOD GA S ORDERABLES Performing Organization Address City/[facility]/ZIP Co de Phone Number [facility] [address] [place] [address] * (ABNORMAL) ELECTROLYTES (08/09/2020 7:04 EST) Sodium 134(L) 136 - 145 mEq/L 08/09/2020 8:32 [facility] Potassium 3.4(L) 3.5 - 5.0 mEq/L 08/09/2020 8:32 [facility] Chloride 95(L) 96 - 110 mEq/L 08/09/2020 8:32 [facility] CO2 Total 30 22 - 32 mEq/L 08/09/2020 8:32 [facility] Blood VENOUS BLOOD / Unknown Venipuncture / Unknown 08/09/2020 7:04 EST 08/09/2020 7:58 EST Mervin Kamara MD CHEMISTRY & BLOOD GA S ORDERABLES Performing Organization Address City/State/[facility] Co de Phone Number [facility] [address] [place] [address] * (ABNORMAL) COMPLETE BLOOD COUNT (08/09/2020 7:04 EST) WBC 11.82 4.00 - 12.40 K/cmm 08/09/2020 7:42 [facility] RBC 4.31 3.86 - 5.04 M/cmm 08/09/2020 7:42 [facility] Hemoglobin 13.3 11.6 - 15.2 gm/dL 08/09/2020 7:42 [facility] HCT 36.3 34.9 - 44.4 % 08/09/2020 7:42 [facility] MCV 84 81 - 98 fl 08/09/2020 7:42 [facility] MCH 30.9 26.7 - 33.3 pg 08/09/2020 7:42 [facility] MCHC 36.6(H) 32.1 - 35.9 gm/dL 08/09/2020 7:42 [facility] RDW-CV 11.9 <14.7 % 08/09/2020 7:42 [facility] RDW-SD 36.4 <50.4 fl 08/09/2020 7:42 [facility] PLT 340 141 - 377 K/cmm 08/09/2020 7:42 [facility] MPV 9.7 9.5 - 12.7 fl 08/09/2020 7:42 [facility] Blood VENOUS BLOOD / Unknown Venipuncture / Unknown 08/09/2020 7:04 EST 08/09/2020 7:29 EST Mervin Kamara MD HEMATOLOGY & PF4 ORD ERABLES [facility] [address] [place] [address] * (ABNORMAL) POCT GLUCOSE, INTERFACED (08/09/2020 4:21 EST) Glucose, POC 219(H) 70 - 100 mg/dL 08/09/2020 7:22 [facility] [place] [id number] 08/09/2020 7:22 [facility] HN LAB POC COMMENT (GLUCOSE) Test Performed by Nursing Services 08/09/2020 7:22 [facility] Blood CAPILLARY BLOOD / Unknown 08/09/2020 4:21 EST 08/09/2020 7:22 EST Keshav Dumont MD POINT OF CARE TEST ORDERABLES Performing Organization Address City/[facility]/ZIP Co de Phone Number [facility] [address] [place] [address] * (ABNORMAL) POCT GLUCOSE, INTERFACED (08/09/2020 1:47 EST) Glucose, POC 173(H) 70 - 100 mg/dL 08/09/2020 7:16 [facility] hole [place] [id number] 08/09/2020 7:16 [facility] HN LAB POC COMMENT (GLUCOSE) Test Performed by Nursing Services 08/09/2020 7:16 [facility] Blood CAPILLARY BLOOD / Unknown 08/09/2020 1:47 EST 08/09/2020 7:16 EST Mervin Kamara MD POINT OF CARE TEST O RDERABLES Performing Organization Address City/[facility]/ZIP Co de Phone Number [facility] [address] [place] [address] * HN LAB CELL COUNT, CSF (08/08/2020 23:12 EST) RBC, CSF <1 /cmm 08/08/2020 23:43 EST [facility] Nucleated Cells, CSF <1 0 - 5 /cmm 08/08/2020 23:43 [facility] Total Volume CSF 4.8 ml 08/08/2020 23:43 [facility] Tube Cntd. 4 08/08/2020 23:43 [facility] Comment, CSF Clear and colorless 08/08/2020 23:43 [facility] Tube Vol. 1.2 ml 08/08/2020 23:43 [facility] Fluid CEREBROSPINAL FLUID SPECIMEN / Unknown 08/08/2020 23:12 EST 08/08/2020 23:22 EST Elise Charles MD HEMATOLOGY & PF4 O RDERABLES Performing Organization Address [facility] Co de Phone Number [facility] [address] [place] [address] * BACTERIAL CULTURE/SMEAR (08/08/2020 23:12 EST) Organism ID No Growth 08/10/2020 8:49 EST [facility] Smear No Neutrophils Seen 08/10/2020 8:49 EST [facility] Smear No bacteria seen 08/10/2020 8:49 EST [facility] Fluid CEREBROSPINAL FLUID SPECIMEN / Unknown 08/08/2020 23:12 EST 08/08/2020 23:22 EST Elise Charles MD MICROBIOLOGY - GEN ERAL ORDERABLES Performing Organization Address City/[facility]/ZIP Co de Phone Number [facility] [address] [place] [address] * (ABNORMAL) TOTAL PROTEIN, CSF (08/08/2020 23:12 EST) Total Protein, CSF 55(H) 12 - 45 mg/dL 08/09/2020 0:00 EST [facility] Fluid CEREBROSPINAL FLUID SPECIMEN / Unknown 08/08/2020 23:12 EST 08/08/2020 23:22 EST Elise Charles MD GEN LAB UNIT COLLE CT ORDERABLES Performing Organization Address [facility]/ZIP Co de Phone Number [facility] [address] [place] [address] * GLUCOSE CSF (08/08/2020 23:12 EST) Pathologist [facility] Glucose, CSF 126 See Note mg/dL 08/09/2020 0:00 EST [facility] Comment: NOTE: Reference range for Glucose in CSF: 60% - 80% of the Serum/Plasma Glucose Fluid CEREBROSPINAL FLUID SPECIMEN / Unknown 08/08/2020 23:12 EST 08/08/2020 23:22 EST Elise Charles MD GEN LAB UNIT COLLE CT ORDERABLES Performing Organization Address [facility] Co de Phone Number [facility] [address] [place] [address] * CELL COUNT TUBE 1, CSF - RBC ONLY, INDICATED FOR A BLOODY TAP (08/08/2020 23:12 EST) Pathologist [facility] RBC, CSF Tube#1 <1 /cmm 08/08/2020 23:43 EST [facility] Specimen Volume 1.2 ml 08/08/2020 23:43 EST [facility] Fluid CEREBROSPINAL FLUID SPECIMEN / Unknown 08/08/2020 23:12 EST 08/08/2020 23:22 EST Elise Charles MD GEN LAB UNIT COLLE CT ORDERABLES Performing Organization Address City/[facility]/ZIP Co de Phone Number [facility] [address] [place] [address] * TEST, URINE (08/08/2020 22:32 EST) Test, Urine Negative Negative 08/09/2020 1:36 [facility] Comment:False negative resul ts may occur in women who are beyond 5-8 weeks gestation. Diagnosis of should be based on a correlation of test results with typical clinical signs and symptoms. Urine URINE SPECIMEN COLLECTION, CLEAN CATCH / Unknown Urine Collect / Unknown 08/08/2020 22:32 EST 08/08/2020 22:34 EST Keshav Dumont MD URINALYSIS ORDERABL ES [facility] [address] [place] [address] * (ABNORMAL) URINE CHEMICAL (DIP) & SEDIMENT (MICRO) WITH REFLEX TO CULTURE (08/08/2020 22:32 EST) Color UA Yellow Colorless, Yellow 08/08/2020 23:01 [facility] Clarity UA Hazy(A) Clear 08/08/2020 23:01 [facility] Glucose UA Trace(A) Negative 08/08/2020 23:01 [facility] Bilirubin UA Negative Negative 08/08/2020 23:01 [facility] Ketones UA 3+(AA) Negative 08/08/2020 23:01 [facility] Specific [place], Urine 1.024 1.001 - 1.035 08/08/2020 23:01 [facility] Blood UA Negative Negative 08/08/2020 23:01 [facility] Urobilinogen UA 4(A) Normal mg/dL 08/08/2020 23:01 [facility] Nitrite UA Negative Negative 08/08/2020 23:01 [facility] Leukocyte Esterase UA Negative Negative 08/08/2020 23:01 [facility] Protein UA 1+(A) Negative 08/08/2020 23:01 [facility] [facility] pH, UA 7.5 4.6 - 8.0 08/08/2020 23:01 [facility] Urine RBC Count, Auto 0 - 2 0 - 2 Cells/HPF 08/08/2020 23:01 [facility] Urine WBC Count, Auto 0 - 3 0 - 3 Cells/HPF 08/08/2020 23:01 [facility] Urine Squamous Count, Auto Moderate(A) None Seen Cells/HPF 08/08/2020 23:01 [facility] Urine Hyaline Cast Count, Auto <=10 <=10 Casts/LPF 08/08/2020 23:01 [facility] Urine Bacteria Count, Auto None Seen None Seen Bacteria/HP F 08/08/2020 23:01 [facility] Urine Crystals Amorphous Phosphates Present(A) None Seen 08/08/2020 23:01 [facility] Urine URINE SPECIMEN COLLECTION, CLEAN CATCH / Unknown Urine Collect / Unknown 08/08/2020 22:32 EST 08/08/2020 22:34 EST Narrative [facility] - 08/08/2020 23:01 EST NOTE: Reflex to Urine Culture test is not indicated based on Urine Sediment Analysis results. Urine Sediment Analysis results are unreliable on urines that are unrefrigerated for >2 hrs or refrigerated >8 hrs. Asuncion Telles MD URINALYSIS ORDERABLE S [facility] [address] [place] [address] * CT HEAD WO CONTRAST (08/08/2020 21:15 [...] MD IMG CT ORDERABLES * COVID-19 TEST [facility] PCR (08/08/2020 21:00 EST) Swab ENTIRE NASOPHARYNX / Unknown Swab / Unknown 08/08/2020 21:00 EST 08/08/2020 21:04 EST Asuncion Telles MD MICROBIOLOGY - GENER AL ORDERABLES [facility] [address] [place] [address] * COVID-19 TESTING (08/08/2020 21:00 EST) COVID-19 rt-PCR Result Negative Negative 08/08/2020 23:52 EST [facility] Comment: This test has [...] history, and epidemiological information. Performed on the Yeelion Fusion instrument Performing Lab Adrian [facility] 08/08/2020 23:52 EST [facility] Swab ENTIRE NASOPHARYNX / Unknown Swab / Unknown 08/08/2020 21:00 EST 08/08/2020 21:04 EST Asuncion Telles MD MICROBIOLOGY - GENER AL ORDERABLES Performing Organization Address City/[facility]/ZIP Co de Phone Number [facility] [address] [place] [address] * LACTIC ACID (08/08/2020 21:00 EST) Lactic Acid 1.2 <=2.0 mmol/L 08/08/2020 21:17 EST [facility] Blood VENOUS BLOOD / Unknown Venipuncture / Unknown 08/08/2020 21:00 EST 08/08/2020 21:05 EST Asuncion Telles MD CHEMISTRY & BLOOD GA S ORDERABLES Performing Organization Address City/[facility] Co de Phone Number [facility] [address] [place] [address] * BACTERIAL CULTURE, BLOOD (08/08/2020 21:00 EST) Organism ID No Growth at 5 days 08/13/2020 21:30 EST [facility] Blood VENOUS BLOOD / Unknown Blood Culture / Unknown 08/08/2020 21:00 EST 08/08/2020 21:17 EST Asuncion Telles MD MICROBIOLOGY - GENER AL ORDERABLES Performing Organization Address City/[facility] Co de Phone Number [facility] [address] [place] [address] * BACTERIAL CULTURE, BLOOD (08/08/2020 20:59 EST) Organism ID No Growth at 5 days 08/13/2020 21:30 EST [facility] Blood VENOUS BLOOD / Unknown Blood Culture / Unknown 08/08/2020 20:59 EST 08/08/2020 21:17 EST Asuncion Telles MD MICROBIOLOGY - GENER AL ORDERABLES Performing Organization Address City/[facility] Number [facility] [address] [place] [address] * ED LUMBAR PUNCTURE BEDSIDE OR CLINIC PERFORMED (08/08/2020 19:21 EST) Narrative [facility] - 08/08/2020 19:21 EST Elise Charles MD ? 08/09/2020 ??9:40 Lumbar Puncture Date/Time: 08/08/2020 22:31 Performed by: Asuncion Telles MD Authorized by: Elise Charles MD Consent: ??Consent obtained: ??Verbal ??Consent given by: ??Patient ??Risks discussed: ??Bleeding, headache, nerve damage, infection, pain and repeat procedure ??Alternatives discussed: ??No treatment [place] protocol: ??Procedure explained and questions answered to [...] PROCEDURE/MINOR GOLDMAN RGICAL ORDERABLES Performing Organization Address [facility]/ZIP Co de Phone Number [facility] EKG * C REACTIVE PROTEIN (08/08/2020 19:07 EST) Pathologist [facility] C-Reactive Protein <7.0 <10.0 mg/L 08/08/2020 21:11 EST [facility] Blood VENOUS BLOOD / Unknown Venipuncture / Unknown 08/08/2020 19:07 EST 08/08/2020 19:12 EST Asuncion Telles MD CHEMISTRY & BLOOD GA S ORDERABLES Performing Organization Address [facility]/ZIP Co de Phone Number [facility] [address] [place] [address] * SED. RATE:WESTERGREN (08/08/2020 19:07 EST) Sed Rate 12 0 - 20 mm/hr 08/08/2020 21:15 EST [facility] Blood VENOUS BLOOD / Unknown Venipuncture / Unknown 08/08/2020 19:07 EST 08/08/2020 19:12 EST Asuncion Telles MD HEMATOLOGY & PF4 ORD ERABLES Performing Organization Address [facility] Co de Phone Number [facility] [address] [place] [address] * (ABNORMAL) BETA HYDROXYBUTYRATE (08/08/2020 19:07 EST) Beta Hydroxybutyrate 2.7(H) <0.4 mmol/L 08/08/2020 20:43 EST [facility] Blood VENOUS BLOOD / Unknown Venipuncture / Unknown 08/08/2020 19:07 EST 08/08/2020 19:12 EST Elise Charles MD CHEMISTRY & BLOOD GAS ORDERABLES Performing Organization Address [facility] Co de Phone Number [facility] [address] [place] [address] * LIPASE (08/08/2020 19:07 EST) Lipase 194 <251 U/L 08/08/2020 19:35 EST [facility] Blood VENOUS BLOOD / Unknown Venipuncture / Unknown 08/08/2020 19:07 EST 08/08/2020 19:12 EST Asuncion Telles MD CHEMISTRY & BLOOD GA S ORDERABLES Performing Organization Address [facility] Co de Phone Number [facility] [address] [place] [address] * (ABNORMAL) COMPREHENSIVE METABOLIC PANEL (CMP) (08/08/2020 19:07 EST) Sodium 136 136 - 145 mEq/L 08/08/2020 19:38 EST [facility] Potassium 3.7 3.5 - 5.0 mEq/L 08/08/2020 19:38 EST [facility] Comment: NOTE: Interpret with caution. Prolonged sample storage may alter the result. Chloride 91(L) 96 - 110 mEq/L 08/08/2020 19:38 EST [facility] CO2 Total 28 22 - 32 mEq/L 08/08/2020 19:38 [facility] Comment: NOTE: Interpret with caution. Prolonged sample storage may alter the result. Glucose 224(H) 70 - 100 mg/dL 08/08/2020 19:38 [facility] BUN 12 10 - 26 mg/dL 08/08/2020 19:38 [facility] Creatinine 0.59 0.52 - 1.04 mg/dL 08/08/2020 19:38 [facility] eGFR 119 >60 mL/min/1.7 3m2 08/08/2020 19:38 [facility] Comment:eGFR calculated gil curtis CKD-EPI equation for non- Americans. Multiply eGFR by 1.16 for patients. Total Protein 7.8 6.3 - 8.2 g/dL 08/08/2020 19:38 [facility] Albumin 4.9 3.4 - 4.9 g/dL 08/08/2020 19:38 [facility] Alkaline Phosphatase 97 38 - 126 U/L 08/08/2020 19:38 [facility] AST 29 15 - 46 U/L 08/08/2020 19:38 [facility] ALT 23 <35 U/L 08/08/2020 19:38 [facility] Bilirubin, Total 1.0 <1.4 mg/dL 08/09/19 19:38 [facility] Calcium 10.5 8.5 - 10.5 mg/dL 08/08/2020 19:38 [facility] Calculated Calcium 9.8 8.5 - 10.5 mg/dL 08/08/2020 19:38 [facility] Blood VENOUS BLOOD / Unknown Venipuncture / Unknown 08/08/2020 19:07 EST 08/08/2020 19:12 EST Asuncion Telles MD CHEMISTRY & BLOOD GA S ORDERABLES [facility] [address] [place] [address] * (ABNORMAL) COMPLETE BLOOD COUNT AND DIFFERENTIAL (08/08/2020 19:07 EST) WBC 16.16(H) 4.00 - 12.40 K/cmm 08/08/2020 19:33 [facility] RBC 4.94 3.86 - 5.04 M/cmm 08/08/2020 19:33 [facility] Hemoglobin 15.3(H) 11.6 - 15.2 gm/dL 08/08/2020 19:33 [facility] HCT 41.4 34.9 - 44.4 % 08/08/2020 19:33 [facility] MCV 84 81 - 98 fl 08/08/2020 19:33 [facility] MCH 31.0 26.7 - 33.3 pg 08/08/2020 19:33 [facility] MCHC 37.0(H) 32.1 - 35.9 gm/dL 08/08/2020 19:33 [facility] RDW-CV 11.9 <14.7 % 08/08/2020 19:33 [facility] RDW-SD 36.2 <50.4 fl 08/08/2020 19:33 [facility] PLT 416(H) 141 - 377 K/cmm 08/08/2020 19:33 [facility] MPV 9.7 9.5 - 12.7 fl 08/08/2020 19:33 [facility] % Neutrophils 65.9 % 08/08/2020 19:33 [facility] % Lymphocytes 25.0 % 08/08/2020 19:33 [facility] % Monocytes 8.1 % 08/08/2020 19:33 [facility] % Eosinophils 0.4 % 08/08/2020 19:33 [facility] % Basophils 0.4 % 08/08/2020 19:33 [facility] % Immature Grans 0.2 % 08/09/19 19:33 [facility] Absolute Neutrophils 10.63(H) 2.20 - 8.85 K/cmm 08/08/2020 19:33 [facility] Absolute Lymphocytes 4.04(H) 1.09 - 3.30 K/cmm 08/08/2020 19:33 [facility] Absolute Monocytes 1.31(H) 0.10 - 0.80 K/cmm 08/08/2020 19:33 [facility] Absolute Eosinophils 0.07 0.03 - 0.61 K/cmm 08/08/2020 19:33 [facility] ABS Basophils 0.07 0.01 - 0.11 K/cmm 08/08/2020 19:33 [facility] Absolute Immature Grans 0.04 0.00 - 0.06 K/cmm 08/08/2020 19:33 [facility] Type of Differential: Auto 08/08/2020 19:33 [facility] Blood VENOUS BLOOD / Unknown Venipuncture / Unknown 08/08/2020 19:07 EST 08/08/2020 19:12 EST Asuncion Telles MD PACKAGES & DNA PROBE ORDERABLES Performing Organization Address City/[facility]/ZIP Co de Phone Number [facility] [address] [place] [address] * HOLD SST (08/08/2020 19:07 EST) Hold Hold 08/08/2020 20:15 EST [facility] Blood VENOUS BLOOD / Unknown Venipuncture / Unknown 08/08/2020 19:07 EST 08/08/2020 19:12 EST Elise Charles MD LAB INFO SERVICE A ND SUPPORT & PHONE RESULT Performing Organization Address City/[facility]/ZIP Co de Phone Number [facility] [address] [place] [address] * HOLD LAVENDER TOP (08/08/2020 19:07 EST) Hold Hold 08/08/2020 20:15 EST [facility] Blood VENOUS BLOOD / Unknown Venipuncture / Unknown 08/08/2020 19:07 EST 08/08/2020 19:12 EST Elise Charles MD LAB INFO SERVICE A ND SUPPORT & PHONE RESULT Performing Organization Address City/[facility]/ZIP Co de Phone Number [facility] [address] [place] [address] * HOLD GREEN TOP (08/08/2020 19:07 EST) Hold Hold 08/08/2020 20:15 EST [facility] Blood VENOUS BLOOD / Unknown Venipuncture / Unknown 08/08/2020 19:07 EST 08/08/2020 19:12 EST Elise Charles MD LAB INFO SERVICE A ND SUPPORT & PHONE RESULT Performing Organization Address [facility]/ZIP Co de Phone Number [facility] [address] [place] [address] * HOLD BLUE TOP (08/08/2020 19:07 EST) Hold Hold 08/08/2020 20:15 EST [facility] Blood VENOUS BLOOD / Unknown Venipuncture / Unknown 08/08/2020 19:07 EST 08/08/2020 19:12 EST Elise Charles MD LAB INFO SERVICE A ND SUPPORT & PHONE RESULT Performing Organization Address [facility]/ZIP Co de Phone Number [facility] [address] [place] [address] * EKG 12-LEAD (08/08/2020 19:04 EST) 08/08/2020 19:0 4 EST Narrative [facility] - 08/25/2020 13:16 EDT ?[facility] ? Test Date: ?2020-08-08 Pat Name: ? CRISTY LUO ?Department: ?? ED ? Room: ? AC14 Gender: ? Female ? Jacquard Loom Fixer: ?? [id number] : ?1985 ? Requested By: SUSANNE Huizar Order Number: [id number] ? Reading MD: ?? CINDY GARCIA MD ? Measurements Intervals ?Martin ? Rate: ? 86 ? P: ?65 MI: ? 139 ?QRS: ?48 QRSD: ? 93 [...] Note Cindy Garcia MD - 08/25/2020 [facility] Test Date: 2020-08-08 Pat Name: CRISTY LUO Department: ED Room: [facility] Gender: Female Jacquard Loom Fixer: [id number] : 1985 Requested By: SUSANNE Huizar Order Number: [id number] Reading MD: CINDY GARCIA MD Measurements Intervals Martin Rate: 86 P: 65 MI: 139 QRS: 48 QRSD: 93 T: 20 [...] Alessandro Delgadillo MD CARDIAC ECG ORDERABL ES [facility] E[facility] * (ABNORMAL) POCT GLUCOSE, INTERFACED (08/08/2020 18:54 EST) Glucose, POC 213(H) 70 - 100 mg/dL 08/08/2020 18:55 EST [facility] hole digger ID [id number] 08/08/2020 18:55 EST [facility] HN LAB POC COMMENT (GLUCOSE) Test Performed by Nursing Services 08/08/2020 18:55 EST [facility] Blood CAPILLARY BLOOD / Unknown 08/08/2020 18:54 EST 08/08/2020 18:55 EST Provider Unknown MD POINT OF CARE TEST O RDERABLES [facility] [address] [place] [address] documented in this encounter Visit Diagnoses Diagnosis Generalized abdominal pain- Primary Abdominal pain, generalized Generalized abdominal pain Abdominal pain, generalized Emesis, persistent Persistent vomiting Type 2 diabetes mellitus with hyperosmolarity without coma, with long-term current use of insulin ([facility]) Dehydration Gastroparesis Abdominal pain Abdominal pain, unspecified site Emesis, persistent Persistent vomiting Dehydration Gastroparesis Generalized abdominal pain Abdominal pain, generalized Emesis, persistent Persistent vomiting Type 2 diabetes mellitus with hyperosmolarity without coma, with long-term current use of insulin ([facility]) documented in this encounter Administered Medications Inactive [...] subcutaneous, EVERY 6 HOURS, First dose on 08/09/20 at 0230, Until Discontinued, Routine, Indications: SUPPLEMENTAL INSULIN Given 08/09/2020 4:23 EST 5 Units insulin aspart U-100 (NOVOLOG FLEXPEN) injection subcutaneous, 3 TIMES DAILY WITH MEALS, First dose on 08/09/20 at 0800, Until [...] 0133, Until 08/10/20 at 1556, Anxiety, Routine Given 08/09/2020 20:30 [...] STAT 1922 (Given - Provider: Kayleigh Bernal, MARCELO) HYDROmorphone (PF) (DILAUDID) 0.5 mg/0.5 mL syringe 0.5 mg (COMPLETED) 0.5 mg, intravenous, NOW X1, 1 dose, On Tue08/08/20 at 2200, STAT 2155 (Given - Provider: Kayleigh Bernal RN) insulin aspart U-100 (NOVOLOG FLEXPEN) injection (CANCELED) subcutaneous, EVERY 6 HOURS, First dose on Tue08/09/20 at 0230, Until Discontinued, Routine, Indications: SUPPLEMENTAL INSULIN 0423 (Given - Provider: Jayne Perera RN - Comment: [phone] (Not Given - Provider: Vinicius Blood RN [...] Fawn Sheth, MARCELO)1201 (Given - Provider: Fawn Sheth, MARCELO) insulin glargine (LANTUS SOLOSTAR) injection pen 30 Units 30 Units, subcutaneous, ONCE DAILY L.A. INSULIN, First dose (after last modification) on Tue08/10/20 at 0900, Until Discontinued, Routine 0855 (Given - Provider: Fawn Sheth, MARCELO) lactated ringers BOLUS 1,000 mL (COMPLETED) 1,000 mL, intravenous, NOW X1, 1 dose, On Tue08/08/20 at 1930, STAT 1922 (New Bag - Provider: Kayleigh Bernal, MARCELO)2230 (Completed - Provider: Kayleigh Bernal, MARCELO) LORazepam (ATIVAN) injection 1 mg (COMPLETED) 1 [...] Discontinued, Routine 0422 (Given - Provider: Jayne Perera, MARCELO)0900 (Canceled Entry - Provider: Rivera Kerr [facility])2100 (Not Given - Provider: Eryn Goss RN - Reason: Medication not available) 0855 (Given - Provider: Fawn Sheth RN) Continuous Medication Order 08/08/2020 08/09/2020 08/10/2020 dextrose 5 % in lactated ringers infusion (CANCELED) at 100 mL/hr, 1,000 mL, intravenous, CONTINUOUS, Starting on 08/09/20 at 0200, Until 08/09/20 at 1152, Routine 0153 (New Bag - Provider: Jayne Perera, MARCELO)1141 (Completed - Provider: Vinicius Blood RN) PRN [...]
--- OUTSIDE RECORDS SUMMARY | 2024-01-02 06:15 | XMS_ITS | Encounter Summary ---
Author Organization [facility] Address [address] [place] [address] Care Team Providers Care Procurement Coordinator Name Role Phone Unavailable Primary Care Provider Unavailabl e Encounter Details Date Type Department Care Team (Late st Contact Info) Description 07/02/2020 Orders Only [facility] Endocrinology - [facility] [address] [place] [address] Sara Zafar, GUSTAVO [address] [facility] [address] [place] [address] Type 2 diabetes mellitus with hyperglycemia, with long-term current use of insulin ([facility]) (Primary Dx) Social History Tobacco Use Types [...] Info) Description 02/21/2024 9:45 EDT Office Visit [facility] Adult Primary Care - [address] [id number] Carrington Calderon MD 1 [facility] [address] [place] [address] 02/27/2024 8:30 EDT Telemedicine [facility] Sleep Program - [address] [address] Dwight Colbert [address] [place] [phone] (Yjmc) [phone] (Fax) 02/29/2024 10:30 EDT [facility] Radiology Nuclear Medicine and PET - [address] [id number] 02/29/2024 14:30 EDT [facility] Radiology Nuclear Medicine and PET - [address] [id number] 03/01/2024 8:00 EDT [facility] - [address] [phone] 03/01/2024 9:30 EDT [facility] [address] [id number] documented as of this encounter Visit Diagnoses Diagnosis Type 2 diabetes mellitus with hyperglycemia, with long-term current use of insulin ([facility])- Primary documented in this encounter
--- OUTSIDE RECORDS SUMMARY | 2024-01-02 06:15 | XMS_ITS | Encounter Summary ---
Author Organization [facility] Address [address] [place] [address] Care Team Providers Care Laboratory Equipment Installer Name Role Phone Unavailable Primary Care Provider Unavailabl e Reason for Visit * Reason Onset Date Comments New/Evolving Symptoms 08/07/2020 Encounter Details Date Type Department Care Team (Late st Contact Info) Description 08/07/2020 Telephone [facility] Adult Primary Care [address] [id number] Tonja Alejandro PA-C [address] [place] [address] [place] [phone] New/Evolving Symptoms Social History Tobacco Use [...] - Angelica Blanco, - 08/07/2020 1916 EST machine scallop cutter message: Patient's Fermin called several hours after [...] trouble swallowing. I spoke with GI attending it consulting manager. Recommendations included going to the ER if [...] Info) Description 02/21/2024 9:45 EDT Office Visit [facility] Adult Primary Care - [address] [phone] Carrington Calderon MD [address] [phone] 02/27/2024 8:30 EDT Telemedicine [facility] Sleep Program - [address] [address]131 Dwight Colbert [address] [place] [phone] 02/29/2024 10:30 EDT Appointment [facility] Radiology Nuclear Medicine and PET [address] [id number] 02/29/2024 14:30 EDT Appointment [facility] Radiology Nuclear Medicine and PET [address] [id number] 03/01/2024 8:00 EDT Appointment [facility] Radiology Nuclear Medicine and PET [address] [id number] 03/01/2024 9:30 EDT Appointment [facility] Radiology Nuclear Medicine and PET [address] [phone] documented as of this encounter Visit Diagnoses Not on filedocumented in this encounter
--- OUTSIDE RECORDS SUMMARY | 2024-01-02 06:15 | XMS_ITS | Encounter Summary ---
Author Organization [facility] Address [address] [place] [address] Care Team Providers Care Standpipe Tender Name Role Phone Unavailable Primary Care [...] 6:47 EST - 08/04/2020 11:43 EST Emergency [facility] Emergency Department - [address] [address] Benita Sol MD [address] [place] [address], Level [address] [place] [address] Non-intractable vomiting with nausea, unspecified [...] 08/04/2020 11:31 EST -Thank you for choosing [facility] for your medical care today. You [...] foot. * Valencia Red RN - 08/04/2020 0998 EST Pt resting comfortably in stretcher at [...] exam for emergent medical conditions at the [facility] on 08/04/2020. This note was created and [...] for UTI. The patient presented to the [facility] ED endorsing nausea with emesis. Per [...] p.o. intake of ice water without difficulty. [id number] ultrasound was performed and showed no evidence [...] [facility] Adult Primary Care - [address] [address] Carrington Calderon MD [address] [address] 02/27/2024 8:30 EDT Telemedicine [facility] Sleep Program - [address] 096691 Dwight Colbert [address] [place] [phone] 02/29/2024 10:[address] [facility] Radiology Nuclear Medicine and PET [address] [phone] 02/29/2024 14:[address] [facility] Radiology Nuclear Medicine and PET [address] [id number] 03/01/2024 8:[address] [facility] Radiology Nuclear Medicine and PET - [address] [id number] 03/01/2024 9:[address] [facility] Radiology Nuclear Medicine and PET [address] [phone] documented as of this encounter Procedures Procedure [...] EST) 08/06/2020 10:3 0 EST Scan 2 Store Administrative Assistant PROCEDURE/MINOR BRAULIO GICAL ORDERABLES * POCT US ED ABDOMEN (08/04/2020 11:01 EST) Anatomical Region Laterality Modality Ultrasound 08/04/2020 11:0 5 EST Narrative 08/04/2020 19:06 EST [facility] - Ultrasound Exam Date: 08/04/2020 Exam Type: POCT US ED ABDOMEN Disability Program Navigator: Asuncion Telles Attending: Benita Sol MD Worksheet: [id number] (POCT US ED ABDOMEN) Exam Type: ?? [...] exam was performed and interpreted by the [facility] ED Staff Procedure Note Ismael Ji MD - 08/04/2020 [facility] - Ultrasound Exam Date: 08/04/2020 Exam Type: POCT US ED ABDOMEN Disability Program Navigator: Asuncion Telles Attending: Benita Sol MD Worksheet: [id number] (POCT US ED ABDOMEN) Exam Type: Clinically [...] exam was performed and interpreted by the [facility] ED Staff Asuncion Telles MD IMG POCT US ORDERABL ES * HOLD SST (08/04/2020 7:18 EST) Hold Hold 08/04/2020 8:32 EST [facility] Blood VENOUS BLOOD / Unknown 08/04/2020 7:18 EST 08/04/2020 7:18 EST Benita Sol MD LAB INFO SERVICE AND SUPPORT & PHONE RESULT Performing Organization Address [facility] Co de Phone Number [facility] [address] [place] [address] * QUANT BETA HCG, (08/04/2020 7:18 EST) Beta HCG Quant, <5 <5 mIU/ml 08/04/2020 8:58 EST [facility] Comment: NOTE: : Negative: Less [...] BLOOD GA S ORDERABLES Performing Organization Address [facility]/ZIP Co de Phone Number [facility] [address] [place] [address] * EKG 12-LEAD (08/04/2020 7:08 EST) 08/04/2020 7:08 EST Narrative [facility] EKG - 08/06/2020 10:26 EST ?[facility] Emergency ? Test Date: ?2020-08-04 Pat Name: ? CRISTY LUO ?Department: ?? ED ? Room: ? AC16 Gender: ? Female ? Campus Wellness Coordinator: ?? [id number] : ?1985 ? Requested By: GILDA Forman Order Number: [id number] ? Reading MD: ?? LORI MARY MD ? Measurements Intervals ?[place] ? Rate: ? 56 ? P: ?4 AK: ? 135 ?QRS: ?14 QRSD: ? 92 [...] Note Lori Mary MD - 08/06/2020 [facility] Emergency Test Date: 2020-08-04 Pat Name: CRISTY LUO Department: ED Room: [facility] Gender: Female Campus Wellness Coordinator: [id number] : 1985 Requested By: GILDA Forman Order Number: [id number] Reading MD: LORI MARY MD Measurements Intervals [place] Rate: 56 P: 4 AK: 135 QRS: 14 QRSD: 92 T: 7 QT: 447 QTc: 433 Interpretive Statements SINUS BRADYCARDIA WITH OCCASIONAL SUPRAVENTRICULAR PREMATURE COMPLEXES Compared to ECG 06/13/2020 15:41:07 Sinus rhythm no longer present I reviewed the tracing and have either agreed or edited the findings inthis report. Electronically Signed On 08-06-2020 10:26:58 EST by LORI VALLE. Benita Sol MD CARDIAC ECG ORDERABL ES [facility] EKG * LIPASE (08/04/2020 7:02 EST) Lipase 131 <251 U/L 08/04/2020 8:[address] [facility] Blood VENOUS BLOOD / Unknown Venipuncture / Unknown 08/04/2020 7:02 EST 08/04/2020 7:05 EST Asuncion Telles MD CHEMISTRY & BLOOD GA S ORDERABLES Performing Organization Address [facility] de Phone Number [facility] [address] [place] [address] * (ABNORMAL) HEPATIC FUNCTION PANEL (ALB,ALK PHOS,ALT,AST,DBIL,TOT SAL,TOT PROT) (08/04/2020 7:02 EST) Pathologist [facility] Total Protein 7.0 6.3 - 8.2 g/dL 08/04/2020 8:[address] [facility] Albumin 4.1 3.4 - 4.9 g/dL 08/04/2020 8:[address] [facility] Bilirubin, Total <0.5 <1.4 mg/dL 08/05/19 8:[address] [facility] Conjugated Bilirubin 0.0 0.0 - 0.3 mg/dL 08/04/2020 8:[address] [facility] Unconjugated Bilirubin 0.2 0.0 - 1.1 mg/dL 08/04/2020 8:[address] [facility] Alkaline Phosphatase 99 38 - 126 U/L 08/04/2020 8:[address] [facility] ALT 16 <35 U/L 08/04/2020 8:[address] [facility] AST 62(H) 15 - 46 U/L 08/04/2020 8:[address] [facility] Blood VENOUS BLOOD / Unknown Venipuncture / Unknown 08/04/2020 7:02 EST 08/04/2020 7:05 EST Asuncion Telles MD CHEMISTRY & BLOOD GA S ORDERABLES Performing Organization Address City/[facility]/ZIP Co de Phone Number [facility] [address] [place] [phone] * LACTIC ACID (08/04/2020 7:02 EST) Lactic Acid 1.9 <=2.0 mmol/L 08/04/2020 7:31 EST [facility] Blood VENOUS BLOOD / Unknown Venipuncture / Unknown 08/04/2020 7:02 EST 08/04/2020 7:05 EST Andrés Garcia MD CHEMISTRY & BLOOD GA S ORDERABLES [facility] [address] [place] [address] * (ABNORMAL) SCREENING GLUCOSE (08/04/2020 7:02 EST) Glucose, Screening 325(H) 70 - 100 mg/dL 08/04/2020 7:34 EST [facility] Comment:Elevated screening g lucose value greater than 180 mg/dl, please order follow up Hemoglobin A1C. Blood VENOUS BLOOD / Unknown Venipuncture / Unknown 08/04/2020 7:02 EST 08/04/2020 7:05 EST Andrés Garcia MD CHEMISTRY & BLOOD GA S ORDERABLES [facility] [address] [place] [address] * MAGNESIUM (08/04/2020 7:02 EST) Magnesium 1.7 1.7 - 2.8 mg/dL 08/04/2020 7:31 EST [facility] Blood VENOUS BLOOD / Unknown Venipuncture / Unknown 08/04/2020 7:02 EST 08/04/2020 7:05 EST Andrés Garcia MD CHEMISTRY & BLOOD GA S ORDERABLES [facility] [address] [place] [address] * TROPONIN I (08/04/2020 7:02 EST) Troponin I (ng/mL) <0.034 <0.034 ng/mL 08/04/2020 7:43 EST [facility] Blood VENOUS BLOOD / Unknown Venipuncture / Unknown 08/04/2020 7:02 EST 08/04/2020 7:05 EST Narrative [facility] - 08/04/2020 7:43 EST The results of this assay can be falsely lowered due to the consumption of Biotin. Andrés Garcia MD CHEMISTRY & BLOOD GA S ORDERABLES Performing Organization Address City/[facility] Co de Phone Number [facility] [address] [place] [address] * ELECTROLYTES (08/04/2020 7:02 EST) Sodium 138 136 - 145 mEq/L 08/04/2020 7:[address] [facility] Potassium 4.1 3.5 - 5.0 mEq/L 08/04/2020 7:[address] [facility] Chloride 103 96 - 110 mEq/L 08/04/2020 7:[address] [facility] CO2 Total 24 22 - 32 mEq/L 08/04/2020 7:[address] [facility] Blood VENOUS BLOOD / Unknown Venipuncture / Unknown 08/04/2020 7:02 EST 08/04/2020 7:05 EST Andrés Garcia MD CHEMISTRY & BLOOD GA S ORDERABLES Performing Organization Address City/[facility]/ZIP Co de Phone Number [facility] [address] [place] [address] * CREATININE (08/04/2020 7:02 EST) Creatinine 0.55 0.52 - 1.04 mg/dL 08/04/2020 7:[address] [facility] eGFR 122 >60 mL/min/1.7 3m2 08/04/2020 7:[address] [facility] Comment:eGFR calculated gil curtis CKD-EPI equation for non- Americans. Multiply eGFR by 1.16 for patients. Blood VENOUS BLOOD / Unknown Venipuncture / Unknown 08/04/2020 7:02 EST 08/04/2020 7:05 EST Andrés Garcia MD CHEMISTRY & BLOOD GA S ORDERABLES Performing Organization Address City/[facility] Co de Phone Number [facility] [address] [place] [address] * BUN (08/04/2020 7:02 EST) BUN 12 10 - 26 mg/dL 08/04/2020 7:31 EST [facility] Blood VENOUS BLOOD / Unknown Venipuncture / Unknown 08/04/2020 7:02 EST 08/04/2020 7:05 EST Andrés Gacria MD CHEMISTRY & BLOOD GA S ORDERABLES Performing Organization Address [facility] de Phone Number [facility] [address] [place] [address] * (ABNORMAL) COMPLETE BLOOD COUNT AND DIFFERENTIAL (08/04/2020 7:02 EST) WBC 16.23(H) 4.00 - 12.40 K/cmm 08/04/2020 7:[address] [facility] RBC 4.57 3.86 - 5.04 M/cmm 08/04/2020 7:[address] [facility] Hemoglobin 14.1 11.6 - 15.2 gm/dL 08/04/2020 7:[address] [facility] HCT 39.2 34.9 - 44.4 % 08/04/2020 7:[address] [facility] MCV 86 81 - 98 fl 08/04/2020 7:[address] [facility] MCH 30.9 26.7 - 33.3 pg 08/04/2020 7:[address] [facility] MCHC 36.0(H) 32.1 - 35.9 gm/dL 08/04/2020 7:[address] [facility] RDW-CV 12.1 <14.7 % 08/04/2020 7:[address] [facility] RDW-SD 37.6 <50.4 fl 08/04/2020 7:[address] [facility] PLT 395(H) 141 - 377 K/cmm 08/04/2020 7:[address] [facility] MPV 10.0 9.5 - 12.7 fl 08/04/2020 7:[address] [facility] % Neutrophils 70.8 % 08/04/2020 7:[address] [facility] % Lymphocytes 20.3 % 08/04/2020 7:[address] [facility] % Monocytes 6.0 % 08/04/2020 7:[address] [facility] % Eosinophils 1.8 % 08/04/2020 7:[address] [facility] % Basophils 0.5 % 08/04/2020 7:[address] [facility] % Immature Grans 0.6 % 08/05/19 7:[address] [facility] Absolute Neutrophils 11.51(H) 2.20 - 8.85 K/cmm 08/04/2020 7:[address] [facility] Absolute Lymphocytes 3.29 1.09 - 3.30 K/cmm 08/04/2020 7:[address] [facility] Absolute Monocytes 0.97(H) 0.10 - 0.80 K/cmm 08/04/2020 7:[address] [facility] Absolute Eosinophils 0.29 0.03 - 0.61 K/cmm 08/04/2020 7:[address] [facility] ABS Basophils 0.08 0.01 - 0.11 K/cmm 08/04/2020 7:[address] [facility] Absolute Immature Grans 0.09(H) 0.00 - 0.06 K/cmm 08/04/2020 7:[address] [facility] Type of Differential: Auto 08/04/2020 7:[address] [facility] Blood VENOUS BLOOD / Unknown Venipuncture / Unknown 08/04/2020 7:02 EST 08/04/2020 7:05 EST Andrés Garcia MD PACKAGES & DNA PROBE ORDERABLES Performing Organization Address City/[facility]/ZIP Co de Phone Number [facility] [address] [place] [address] * (ABNORMAL) POCT GLUCOSE, INTERFACED (08/04/2020 6:59 EST) Glucose, POC 328(H) 70 - 100 mg/dL 08/04/2020 7:02 EST [facility] management coordinator ID [id number] 08/04/2020 7:02 EST [facility] HN LAB POC COMMENT (GLUCOSE) Test Performed by Nursing Services 08/04/2020 7:02 EST [facility] Blood CAPILLARY BLOOD / Unknown 08/04/2020 6:59 EST 08/04/2020 7:02 EST Provider Unknown POINT OF CARE TEST O RDERABLES Performing Organization Address City/[facility] Co de Phone Number [facility] [address] [place] [address] documented in this encounter Visit Diagnoses Diagnosis [...] in ED, PACU or ICU? Yes, STAT 912 (Given - Provid er: Valencia Red RN) lactated ringers BOLUS 1,000 mL (COMPLETED) 1,000 mL, intravenous, NOW X1, 1 dose, On Tue08/04/20 at 0730, STAT 08 (New Bag - Prov ider: Valencia Red RN)0959 (Completed - Provider: Valencia Red RN) LORazepam (ATIVAN) injection 0.5 mg (COMPLETED) 0.5 mg, intravenous, NOW X1, 1 dose, On Tue08/04/20 at 0800, STAT 08 (Given - Provid er: Valencia Red RN) [...]
--- OUTSIDE RECORDS SUMMARY | 2024-01-02 06:15 | XMS_ITS | Encounter Summary ---
Author Organization [facility] Address [address] [place] [address] Care Team Providers Care Hemmer Automatic Name Role Phone Unavailable Primary Care Provider [...] [facility] Adult Primary Care - [address] [address] Carrington Calderon MD [address] [phone] 02/27/2024 8:30 EDT Telemedicine [facility] Sleep Program - [address] [phone] Dwight Colbert [address] [place] [phone] 02/29/2024 10:30 EDT Appointment [facility] Radiology Nuclear Medicine and PET - [address] [id number] 02/29/2024 14:30 EDT Appointment [facility] Radiology Nuclear Medicine and PET - [address] [id number] 03/01/2024 8:00 EDT Appointment [facility] Radiology Nuclear Medicine and PET - [address] [phone] 03/01/2024 9:30 EDT Appointment [facility] Radiology Nuclear Medicine and PET - [address] [phone] documented as of this encounter Visit Diagnoses Not on filedocumented in this encounter Additional Health Concerns Infection Onset Date Last Indicated Resolved Time R/O COVID-19 08/04/2020 08/04/2020 08/04/2020 11:4 0 EST documented as of this encounter
--- OUTSIDE RECORDS SUMMARY | 2024-01-02 06:15 | XMS_ITS | Encounter Summary ---
Author Organization [facility] Address [address] [place] [address] Care Team Providers Care Surveillance Officer Name Role Phone Unavailable Primary Care Provider Unavailabl e Encounter Details Date Type Department Care Team (Late st Contact Info) Description 07/28/2020 11:15 EST Phlebotomy Only [facility] ED Center 2 Phlebotomy [address] [place] [address] Linter Saw Sharpener, Acc Phlebotomy Encounter for sterilization Social History [...] [facility] Adult Primary Care - [address] 032451 Carrington Calderon MD 1 [facility] 1 [place] [phone] 02/27/2024 8:30 EDT Telemedicine [facility] Sleep Program - [address] [phone] Dwight Colbert [address] [place] [phone] 02/29/2024 10:30 EDT [facility]ment [facility] Rad[facility] Nuclear Medicine and PET - [address] [id number] 02/29/2024 14:30 EDT Appointment [facility] Radiology Nuclear Medicine and PET - [facility] [address] [place] [address] 03/01/2024 8:00 EDT Appointment [facility] Radiology Nuclear Medicine and PET [facility] [address] [place] [address] 03/01/2024 9:30 EDT Appointment [facility] Radiology Nuclear Medicine and PET [address] [address] documented as of this encounter Procedures Procedure Name Priority Date/Time Associated Diagnosis Comments SCREENING GLUCOSE Routine 07/28/2020 11: 25 EST Encounter for sterilization documented in this encounter Results * (ABNORMAL) SCREENING GLUCOSE (07/28/2020 11:25 EST) Glucose, Screening 260(H) 70 - 100 mg/dL 07/28/2020 12:39 EST [facility] Comment:Elevated screening g lucose value greater than 180 mg/dl, please order follow up Hemoglobin A1C. Blood VENOUS BLOOD / Unknown Venipuncture / Unknown 07/28/2020 11:25 EST 07/28/2020 12:04 EST Whit Rae MD CHEMISTRY & BLOOD GA S ORDERABLES [facility] [address] [place] [address] documented in this encounter Visit Diagnoses Diagnosis Encounter for sterilization Sterilization documented in this encounter
--- OUTSIDE RECORDS SUMMARY | 2024-01-02 06:15 | XMS_ITS | Encounter Summary ---
Author Organization [facility] Address [address] [place] [address] Care Team Providers Care Benefits Specialist Name Role Phone Unavailable Primary Care Provider Unavailabl e Reason for Visit * Reason Onset Date Comments Appointment Related 07/30/2020 Encounter Details Date Type Department Care Team (Late st Contact Info) Description 07/30/[address] [facility] Women's Services [facility] [address] [place], [place] [address] Nimisha Bay MD 2 [facility], [address] [place] [address] Appointment Related Social History Tobacco [...] [facility] Adult Primary Care - [address] [phone] Carrington Calderon MD 1 [facility] 1 [place] [address] 02/27/2024 8:[address] [facility] Sleep Program - [address] [phone] Dwight Colbert [address] [place] [phone] 02/29/2024 10:30 EDT Appointment [facility] Radiology Nuclear Medicine and PET - [address] [id number] 02/29/2024 14:30 EDT Appointment [facility] Radiology Nuclear Medicine and PET - [address] [id number] 03/01/2024 8:00 EDT Appointment [facility] Radiology Nuclear Medicine and PET [address] [id number] 03/01/2024 9:30 EDT Appointment [facility] Radiology Nuclear Medicine and PET [address] [phone] documented as of this encounter Visit Diagnoses Not on filedocumented in this encounter
--- OUTSIDE RECORDS SUMMARY | 2024-01-02 06:15 | XMS_ITS | Encounter Summary ---
Author Organization [facility] Address [address] [place] [address] Care Team Providers Care Pole Shaver Name Role Phone Unavailable Primary Care Provider Unavailabl e Reason for Visit * Reason Comments Foot Problem Encounter Details Date Type Department Care Team (Latest Contact Info) Description 07/02/2020 14:30 EST Office Visit [facility] Foot & Ankle Program - [address] [address] Elza Navarro DPM [address] [place] [phone] Osteomyelitis of left foot, unspecified type ([facility]) (Primary Dx); Type 2 diabetes mellitus with diabetic polyneuropathy, with long-term current use of insulin ([facility]) Social History Tobacco Use Types Packs/Day Years [...] of left foot, unspecified type ([facility]) 2. Type 2 diabetes mellitus with diabetic polyneuropathy, with long-term current use of insulin ([facility]) No orders of the defined types were [...] prepared with speech recognition software or keyboard oracle data warehouse developer techniques. Minor irregularities or keyboarding misprints may be present documented in this encounter Plan of Treatment Upcoming Encounters Date Type Department Care Team (Late st Contact Info) Description 02/21/2024 9:45 EDT Office Visit [facility] Adult Primary Care - [address] [phone] Carrington Calderon MD 1 [facility] Level 1 [place] [phone] 02/27/2024 8:30 EDT Telemedicine [facility] Sleep Program - [address] [place] [address] [place] [address] [address]ight Col[address] [place] [address] 02/29/2024 10:30 ED[facility] Rad[facility] Nuclear Medicine and PET - [address] [address] 02/29/2024 14:30 EDT [facility] - [address] [phone] 03/01/2024 8:00 EDT Appointment [facility] Radiology Nuclear Medicine and PET - [address] [phone] 03/01/2024 9:30 EDT Appointment [facility] Radiology Nuclear Medicine and PET - [address] [address] documented as of this encounter Visit Diagnoses Diagnosis Osteomyelitis of left foot, unspecified type ([facility])- Primary Type 2 diabetes mellitus with diabetic polyneuropathy, with long-term current use of insulin ([facility]) documented in this encounter
--- OUTSIDE RECORDS SUMMARY | 2024-01-02 06:15 | XMS_ITS | Encounter Summary ---
Author Organization [facility] Address [address] [place] [address] Care Team Providers Care Tap Out Operator Name Role Phone Unavailable Primary Care Provider Unavailabl e Reason for Visit * Reason Comments Hospital Discharge Follow Up Encounter Details Date Type Department Care Team (Latest Contact Info) Description 08/14/2020 9:00 EST Office Visit [facility] Adult Primary Care - [address] 436201 Tonja Alejandro PA-C [address] [place] [address] [address] [place] [address] Type 2 diabetes mellitus with hyperosmolarity without coma, with long-term current use of insulin ([facility]) (Primary Dx); Gastroparesis Social History Tobacco Use [...] Follow Up 1 month Tonja Alejandro PA-C [facility] 08/19/2020 9:13 I spent a total of [...] Office Visit [facility] Adult Primary Care [address] 355831 Carrington Calderon MD 1 [facility] Level 1 [place] [phone] 02/27/2024 8:30 EDT Telemedicine [facility] Sleep Program - [address] [place] [address] [place] [address] Dwight Colbert [address] [place] [address] 02/29/2024 10:30 EDT Appointment [facility] Radiology Nuclear Medicine and PET - [address] [address] 02/29/2024 14:30 EDT Appointment [facility] Radiology Nuclear Medicine and PET - [address] [phone] 03/01/2024 8:00 EDT Appointment [facility] Radiology Nuclear Medicine and PET - [address] [phone] 03/01/2024 9:30 EDT Appointment [facility] Radiology Nuclear Medicine and PET - [address] [address] documented as of this encounter Visit Diagnoses Diagnosis Type 2 diabetes mellitus with hyperosmolarity without coma, with long-term current use of insulin ([facility])- Primary Gastroparesis documented in this encounter Discontinued Medications Medication Sig Discontinue Reason Start Date End Da te LORazepam (ATIVAN) 0.5 mg tablet Take 1 Tab by mouth 3 times daily as needed for Anxiety. Daily Max: 1.5 mg Reorder 08/07/2020 08/14/2020 documented as of this encounter
--- OUTSIDE RECORDS SUMMARY | 2024-01-02 06:16 | XMS_ITS | Encounter Summary ---
Author Organization [facility] Address [address] [place] [address] Care Team Providers Care Cigar Head Puncher Name Role Phone Unavailable Primary Care Provider Unavailabl e Reason for Visit * Reason Onset Date Comments Surgery Scheduling 06/30/2020 Encounter Details Date Type Department Care Team (Late st Contact Info) Description 06/30/2020 Telephone [facility] Women's Services [address] [phone] Charu Flynn MD 111 [facility], Level 4 [place] [address] Surgery Scheduling Social History Tobacco [...] [facility] Adult Primary Care - [address] [address] Carrington Calderon MD 1 [facility] 1 [place] [address] 02/27/2024 8:30 EDT Telemedicine [facility] Sleep Program - [address] [address] Dwight Colbert [address] [place] [phone] 02/29/2024 10:30 EDT [facility] Radiology Nuclear Medicine and PET [address] [phone] 02/29/2024 14:30 EDT Appointment [facility] Radiology Nuclear Medicine and PET [address] 524781 03/01/2024 8:00 EDT Appointment [facility] Radiology Nuclear Medicine and PET - [address] 129101 03/01/2024 9:30 EDT Appointment [facility] Radiology Nuclear Medicine and PET [address] [phone] documented as of this encounter Visit Diagnoses Not on filedocumented in this encounter
--- OUTSIDE RECORDS SUMMARY | 2024-01-02 06:16 | XMS_ITS | Encounter Summary ---
Author Organization [facility] Address [address] [place] [address] Care Team Providers Care Graphic Design Specialist Name Role Phone Unavailable Primary Care [...] EDT Office Visit [facility] Adult Primary Care - [address] [phone] Carrington Calderon MD [address] [phone] 02/27/2024 8:30 EDT Telemedicine [facility] Sleep Program - [address] [phone] Dwight Colbert [address] [place] [address] [phone] 02/29/2024 10:30 EDT Appointment [facility] Radiology Nuclear Medicine and PET - [address] [phone] 02/29/2024 14:30 EDT Appointment [facility] Radiology Nuclear Medicine and PET - [address] [phone] 03/01/2024 8:00 EDT Appointment [facility] Radiology Nuclear Medicine and PET - [facility] [address] [place], [place] [phone] 03/01/2024 9:30 EDT Appointment [facility] Radiology Nuclear Medicine and PET - [address] [phone] documented as of this encounter Visit Diagnoses Not on filedocumented in this encounter
--- OUTSIDE RECORDS SUMMARY | 2024-01-02 06:16 | XMS_ITS | Encounter Summary ---
Author Organization [facility] Address [address] [place] [address] Care Team Providers Care Measurement Superintendent Name Role Phone Unavailable Primary Care Provider Unavailabl e Reason for Visit * Reason Onset Date Comments Other 06/17/2020 Encounter Details Date Type Department Care Team (Late st Contact Info) Description 06/17/2020 Telephone [facility] Foot & Ankle Program - [address] [address] Elza Navarro DP [address] [place] [address] Other Social History Tobacco Use [facility] [place] [address] Carrington Calderon MD [address] [address] 02/27/2024 8:30 EDT Telemedicine [facility] Sleep Program - [address] [address] ColbertDwight garner [address] [place] [address] 02/29/2024 10:30 EDT [facility]ointment [facility] Radiology Nuclear Medicine and PET - [address] [address] 02/29/2024 14:30 EDT [facility]ointment [facility] Radiology Nuclear Medicine and PET - [address] 728861 03/01/2024 8:00 EDT [facility]ointment [facility] Radiology Nuclear Medicine and PET - [address] 760451 03/01/2024 9:30 EDT [facility]ointment [facility] Radiology Nuclear Medicine and PET - [address] [phone] documented as of this encounter Visit Diagnoses Not on filedocumented in this encounter
--- OUTSIDE RECORDS SUMMARY | 2024-01-02 06:16 | XMS_ITS | Encounter Summary ---
Author Organization [facility] Address [address] [place] [address] Care Team Providers Care Product Development Specialist Name Role Phone Unavailable Primary Care Provider Unavailabl e Reason for Visit * Reason Onset Date Comments COVID-19 06/30/2020 Encounter Details Date Type Department Care Team (Late st Contact Info) Description 06/30/2020 Orders Only [facility] Women's Services [address] [address] Susana Tomlinson, RN Sterilization (Primary Dx) Social [...] Info) Description 02/21/2024 9:45 EDT Office Visit [facility] Adult Primary Care - [address] [phone] Carrington Calderon MD [address] [phone] 02/27/2024 8:30 EDT Telemedicine [facility] Sleep Program - [address] [address] Dwight Colbert [address] [place] [address] 02/29/2024 10:30 EDT [facility]ment [facility] Radiology Nuclear Medicine and PET - [address] [address] 02/29/2024 14:30 EDT [facility]ointment [facility] Radiology Nuclear Medicine and PET - [address] [phone] 03/01/2024 8:00 EDT [facility]ointment [facility] Radiology Nuclear Medicine and PET - [address] [phone] 03/01/2024 9:30 EDT [facility]ointment [facility] Radiology Nuclear Medicine and PET - [address] [phone] documented as of this encounter Visit Diagnoses Diagnosis Sterilization- Primary documented in this encounter
--- OUTSIDE RECORDS SUMMARY | 2024-01-02 06:16 | XMS_ITS | Encounter Summary ---
Author Organization [facility] Address [address] [place] [address] Care Team Providers Care Prep Room Supervisor Name Role Phone Unavailable Primary Care Provider Unavailabl e Reason for Visit * Reason Comments Foot Problem Encounter Details Date Type Department Care Team (Latest Contact Info) Description 06/25/2020 15:00 EST Post-op Visit [facility] Foot & Ankle Program - [address] [address] [address] [address] Osteomyelitis of left foot, unspecified type ([facility]) (Primary Dx); Type 2 diabetes mellitus with diabetic polyneuropathy, with long-term current use of insulin ([facility]) Social History Tobacco Use Types Packs/Day Years [...] 1. Osteomyelitis of left foot, unspecified type ([facility]) 2. Type 2 diabetes mellitus with diabetic polyneuropathy, with long-term current use of insulin ([facility]) No orders of the defined [...] prepared with speech recognition software or keyboard ms access database developer techniques. Minor irregularities or keyboarding misprints may be present documented in this encounter Plan of Treatment Upcoming Encounters Date Type Department Care Team (Late st Contact Info) Description 02/21/2024 9:45 EDT Office Visit [facility] Adult Primary Care - [address] [phone] Carrington Calderon MD [address] [place] [phone] 02/27/2024 8:30 EDT Telemedicine [facility] Sleep Program - [address] [phone] Dwight Colbert [address] [place] [address] 02/29/2024 10:30 EDT [facility]ment [facility] Radiology Nuclear Medicine and PET - [address] [address] 02/29/2024 14:30 EDT [facility]ointment [facility] Radiology Nuclear Medicine and PET - [address] [phone] 03/01/2024 8:00 EDT [facility]ointment [facility] Radiology Nuclear Medicine and PET - [address] [phone] 03/01/2024 9:30 EDT Appointment [facility] Radiology Nuclear Medicine and PET [address] [phone] documented as of this encounter Visit Diagnoses Diagnosis Osteomyelitis of left foot, unspecified type ([facility])- Primary Type 2 diabetes mellitus with diabetic polyneuropathy, with long-term current use of insulin ([facility]) documented in this encounter
--- OUTSIDE RECORDS SUMMARY | 2024-01-02 06:16 | XMS_ITS | Encounter Summary ---
Author Organization [facility] Address [address] [place] [address] Care Team Providers Care Lot Boss Name Role Phone Unavailable Primary Care Provider Unavailabl e Reason for Visit * Reason Onset Date Comments Miscarriage 06/26/2020 Nausea 06/26/2020 Abdominal Pain 06/26/2020 Encounter Details Date Type Department Care Team (Late st Contact Info) Description 06/26/2020 Telephone [facility] Adult Primary Care [address] [address] Tonja Alejandro PA-C [address] [place] [address] [place] [phone] Miscarriage; Nausea; Abdominal Pain Social History [...] in bleeding. I encouraged her to call BEATER ROOM SUPERVISOR office back for further recommendations. She really would like to try to stay out of the ER department as they have not been helpful the last time they went there. I did explain to her there can be serious risk with miscarriages with increase pain and bleeding. She understands this and will call BEATER ROOM SUPERVISOR. * Telephone Encounter - Jesi Lua RN - 06/26/2020 1537 EST Spoke with . He states photo mask pattern generator got to wifes phone and told her to go to ER. He states he is not bringing her back to the ER. He states she is not comfortable bringing her there and having them sitthere for 6hrs like they did the other day and them not do anything. He is not happy with BEATER ROOM SUPERVISOR office and states that is why he called us. Will forward message to Tonja DAWSON * Telephone Encounter - Tonja Alejandro PA-C - 06/26/2020 1525 EST Looks like someone from BEATER ROOM SUPERVISOR tried calling her. Patient needs to return phone call to them. * Telephone Encounter - Eryn Navarrete RN - 06/26/2020 1517 EST Reviewed response with patient's . He is still concerned about her pain management Will review with provider. * Telephone Encounter - Tonja Alejandro PA-C - 06/26/2020 1435 EST Please let patient know that I called over to her SOFTWARE RELIABILITY ENGINEER office/attending documentation specialist. The doctor had put in a message [...] 1346 EST Has she talked with her director agricultural services? im concerned regarding her symptoms especially if she has a retained clot. I also worry about possible hemorrhage ( if she is severely bleeding, any increased bleedingsince yesterday? ). Has the pain changed since yesterday? Any fevers? I really think she needs to let photo mask pattern generator know whats going on today . I [...] provider yesterday and things were fine) Uses [facility] in [place]. * Telephone Encounter - Dayana Cosme - [...] Info) Description 02/21/2024 9:45 EDT Office Visit [facility] Adult Primary Care - [address] [address] Carrington Calderon MD 1 [facility] 1 [place] [phone] 02/27/2024 8:30 EDT Telemedicine [facility] Sleep Program - [address] [phone] Dwight Colbert [address] [place] [address] [phone] 02/29/2024 10:30 EDT Appointment [facility] Radiology Nuclear Medicine and PET - [address] [phone] 02/29/2024 14:30 EDT [facility]ointment [facility] Radiology Nuclear Medicine and PET - [address] [address] 03/01/2024 8:00 EDT Appointment [facility] Radiology Nuclear Medicine and PET [address] [address] 03/01/2024 9:30 EDT Appointment [facility] Radiology Nuclear Medicine and PET [address] [address] documented as of this encounter Visit Diagnoses Not on filedocumented in this encounter Additional Health Concerns Infection Onset Date Last Indicated Resolved Time R/O COVID-19 08/04/2020 08/04/2020 08/04/2020 11:4 0 EST documented as of this encounter
--- OUTSIDE RECORDS SUMMARY | 2024-01-02 06:16 | XMS_ITS | Encounter Summary ---
Author Organization [facility] Address [address] [place] [address] Care Team Providers Care Composing Room Machinist Apprentice Name Role Phone Unavailable Primary Care Provider Unavailabl e Reason for Visit * Reason Onset Date Comments Follow-up 06/25/2020 Encounter Details Date Type Department Care Team (Late st Contact Info) Description 06/25/2020 Telephone [facility] Women's Services [facility] [address] [place], [place] [phone] Susana Tomlinson, RN Follow-up Social History Tobacco [...] Encounter - Susana Tomlinson RN - 06/25/2020 1245 EST Spoke with Stella: advised HCG result [...] [facility] - [address] 295601 Carrington Calderon MD [address] [phone] 02/27/2024 8:30 EDT Telemedicine [facility] Sleep Program - [address] [phone] Dwight Colbert [address] [place] [phone] 02/29/2024 10:30 EDT Appointment [facility] Radiology Nuclear Medicine and PET - [address] 159541 02/29/2024 14:30 EDT Appointment [facility] Radiology Nuclear Medicine and PET [address] [phone] 03/01/2024 8:00 EDT Appointment [facility] Radiology Nuclear Medicine and PET [address] [phone] 03/01/2024 9:30 EDT Appointment [facility] Radiology Nuclear Medicine and PET [address] [phone] documented as of this encounter Visit Diagnoses Not on filedocumented in this encounter
--- OUTSIDE RECORDS SUMMARY | 2024-01-02 06:16 | XMS_ITS | Encounter Summary ---
Author Organization [facility] Address [address] [place] [address] Care Team Providers Care Grab Driver Name Role Phone Unavailable Primary Care Provider Unavailabl e Reason for Visit * Auth/Cert Specialty Diagnoses / Procedures Referred By Kit t Referred To Contact Diagnoses Encounter for sterilization Procedures MD LAP,RMV ADNEXAL STRUCTURE Laparoscopic Bilateral Salpingectomy Referral ID Status Reason Start Date Expiration Date Visits Re quested Visits Authorized [id number] 1 1 Encounter Details Date Type Department Care Team (Late st Contact Info) Description 06/16/2020 15:25 EST - 06/16/2020 16:40 EST Surgery [facility] Main [place] [address] [place] [address] Elza Navarro DPM [address] [place] [phone] Left great toe amputation [37223 (CPT??)] Surgery Details Date/Time Status Location OR Service Patient Class Case Cl ass Case Type Trauma Case? 06/16/20 1525 Posted [facility] OR [facility] Orthopedics [facility] Outpatient Surgery H - [...] can be contacted during weekday officehours at [phone]. If there is an emergency, Dr. Navarro may also be contacted via pager by calling the [facility] at [phone] or [phone] (pager # [phone]). documented in this encounter Medications at Time [...] last A1c was 9.1. According to her highway research engineer, patient is instructed to take 32 units [...] X Gastrointestinal x Intermittent nausea from antibiotics ARMATURE CONNECTOR x History of multiple miscarriages Musculoskeletal x [...] Notes * Mallorie Marcial RN - 06/16/2020 9583 EST The Patient's Pre-Surgical/ Procedure test result [...] SERVICE DATE: 06/16/2020 SURGEON: Elza Navarro DPM TEST ENGINEER: None. PREOPERATIVE DIAGNOSIS: Left great toe osteomyelitis. [...] retained. Elza Navarro DPM / DC Confirmation: [id number] Dictation ID: [id number] cc: documented in this encounter Miscellaneous Notes * Brief Op Note - Elza Navarro DPM - 06/16/2020 1644 EST Date: 06/16/2020 Location: [facility] OR Name: Cristy Luo, : 1985, Diagnosis Pre-op Diagnosis * Osteomyelitis of toe of left foot ([facility]) [M86.9] * Type 2 diabetes mellitus with diabetic polyneuropathy, with long-term current use of insulin ([facility]) [E11.42, Z79.4] Post-op Diagnosis * Osteomyelitis of toe of left foot ([facility]) [M86.9] * Type 2 diabetes mellitus with diabetic polyneuropathy, with long-term current use of insulin ([facility]) [E11.42, Z79.4] Procedures Left great toe amputation 92423 - MD AMPUTATION TOE,MT-P JT Surgeons * Elza Navarro DPM - Primary Procedure Summary Anesthesia: Monitor Anesthesia Care ASA: ASA status not filed in the log. Estimated Blood Loss: < 5 cc Total IV Fluids: per anesthesia Staff: Mellowing Machine Operator: Cherie Mayes RN Scrub Person: Arturo Pelletier Patient Resin Maker: Carlita Charles Indications: Stella Luo is an [...] protocol. Patient will call GUSTAVO Collado (Diabetes FAST FOOD CASHIER) for any further questions regarding diabetes management pre op NAOMI NAVA RN * PAT Note - Naomi Nava RN - 06/13/2020 0993 EST COVID 19 Screening Perioperative at time [...] instruct them to call us back at [phone] to report symptoms (If patient is in [...] [facility] Adult Primary Care - [address] [phone] Carrington Calderon MD 1 [facility] 1 [place] [phone] 02/27/2024 8:30 EDT Telemedicine [facility] Sleep Program - [address] [phone] Dwight Colbert [address] [place] [address] [phone] 02/29/2024 10:30 EDT Appointment [facility] Radiology Nuclear Medicine and PET [address] [address] 02/29/2024 14:30 EDT Appointment [facility] Radiology Nuclear Medicine and [address] [address] 03/01/2024 8:00 EDT Appointment [facility] Radiology Nuclear Medicine and PET [address] [address] 03/01/2024 9:30 EDT Appointment [facility] Radiology Nuclear [facility] and [address] [address] Pending Results Name Type Priority Associated Diagnoses [...] EST Osteomyelitis of toe of left foot ([facility]) Type 2 diabetes mellitus with diabetic polyneuropathy, with long-term current use of insulin ([facility]) Special Needs Foot Set, Patient already has surgical shoe POCT GLUCOSE, INTERFACED Routine 06/16/2020 14:40 EST POCT CSN BARCODE URINE PREG TEST STAT 06/16/2020 14:22 EST documented in this encounter Results * PATHOLOGY - SCANNED (06/20/2020 11:10 EST) 06/20/2020 11:1 0 EST Scan 2 Packing Tractor Machine Operator LAB INFO SERVICE AN D SUPPORT & PHONE RESULT * SURGICAL PATHOLOGY (06/16/2020 16:21 [facility]) Final Diagnosis A. TOE, LEFT GREAT, AMPUTATION: - Acute osteomyelitis. - Disarticulated joint with no gross evidence of acute osteomyelitis. - Skin with ulceration and acute cellulitis. 06/19/2020 15:19 [facility] Attestation There was significant resident/fellow involvement in the diagnostic evaluation of this case. By the signature below, the attending physician certifies that they have personally conducted a gross and/or microscopic examination of the described specimens and rendered or confirmed the above diagnosis. 06/19/2020 15:19 [facility] at 1519 Clinical History Left great toe osteomyelitis 06/19/2020 15:19 [facility] Gross Description A. [...] unguis is pale yellow firm and unremarkable. Circular Knitter sections are submitted as follows: BLOCK SHIELDS A1-A2- underlying bone, acid decalcification A3- defect to skin and soft tissue margins EUNICE GUAJARDO(ASCP) 06/17/2020 11:11 06/19/2020 15:19 [facility] Resident/Cash w: Emory Nazario DO 06/19/2020 15:19 [facility] Performing Lab [facility] 15:19 [facility] Scanned Images 06/19/2020 15:19 [facility] Tissue AMPUTATION / Unknown 06/16/2020 16:21 EST 06/16/2020 21:33 EST Comment:Left great toe osteo myelitis Elza Navarro DPM PATHOLOGY ORDERABLES [facility] [address] [place] [address] * (ABNORMAL) ANAEROBE CULTURE/SMEAR(INC. AEROBES), OTHER (06/16/2020 16:21 EST) Organism ID Moderate Streptococcus agalactiae(A) 1 8:41 [facility] Comment:Penicillin and ampic illin are drugs of choice for treatment of beta hemolytic streptococcal infections. Organism ID Few Staphylococcus aureus(A) VITEK SUSCEPTIBILITY 1 8:41 [facility] Comment:Susceptible to nafci llin, cephalosporins and other beta lactam antibiotics (mecA gene product absent). Organism ID Few Gram-Positive Rods Aerobic (Group) 1 8:41 [facility] Organism ID Rare Prevotella bivia(A) 1 8:41 [facility] Organism ID Few Anaerococcus tetradius(A) 1 8:41 [facility] Smear Many Neutrophils Present 1 8:41 [facility] Smear Moderate Gram Positive Cocci 1 8:41 [facility] Bone ENTIRE TOE / [...] VITEK SUSCEPTIBILIT Y <=0.5 ug/mL: Susceptible Elza Forman Ramon DPM MICROBIOLOGY - GENER AL ORDERABLES Performing Organization Address [facility] Co de Phone Number [facility] [address] [place] [address] * (ABNORMAL) POCT GLUCOSE, INTERFACED (06/16/2020 14:40 EST) Glucose, POC 166(H) 70 - 100 mg/dL 06/16/2020 14:43 EST [facility] doctor podiatric medicine ID [id number] 06/16/2020 14:43 EST [facility] HN LAB POC COMMENT (GLUCOSE) Test Performed by Nursing Services 06/16/2020 14:43 EST [facility] Blood CAPILLARY BLOOD / Unknown 06/16/2020 14:40 EST 06/16/2020 14:43 EST Elza Navarro DPM POINT OF CARE TEST O RDERABLES Performing Organization Address [facility] Co de Phone Number [facility] [address] [place] [address] * POCT CSN BARCODE URINE PREG TEST (06/16/2020 14:22 EST) Hold Hold 06/16/2020 16:30 EST [facility] Urine URINE SPECIMEN COLLECTION, CLEAN CATCH / Unknown 06/16/2020 14:22 EST 06/16/2020 14:22 EST Tiff Salcedo MD LAB INFO SERVICE AND SUPPORT & PHONE RESULT Performing Organization Address City/[facility] Co de Phone Number [facility] [address] [place] [address] documented in this encounter Visit Diagnoses Diagnosis Osteomyelitis of left foot, unspecified type ([facility]) Osteomyelitis of toe of left foot ([facility]) Unspecified osteomyelitis, ankle and foot Type 2 diabetes mellitus with diabetic polyneuropathy, with long-term current use of insulin ([facility]) Osteomyelitis of toe of left foot ([facility]) Unspecified osteomyelitis, ankle and foot Type 2 diabetes mellitus with diabetic polyneuropathy, with long-term current use of insulin ([facility]) documented in this encounter Admitting Diagnoses Diagnosis Osteomyelitis of toe of left foot ([facility]) Unspecified osteomyelitis, ankle and foot Type 2 diabetes mellitus with diabetic polyneuropathy, with long-term current use of insulin ([facility]) documented in this encounter Administered [...]
--- OUTSIDE RECORDS SUMMARY | 2024-01-02 06:16 | XMS_ITS | Encounter Summary ---
Author Organization [facility] Address [address] [place] [address] Care Team Providers Care Shade Cloth Finisher Name Role Phone Unavailable Primary Care Provider Unavailabl e Reason for Visit * Auth/Cert Specialty Diagnoses / Procedures Referred By Kit t Referred To Contact Diagnoses Encounter for sterilization Procedures MN LAP,RMV ADNEXAL STRUCTURE Laparoscopic Bilateral Salpingectomy Referral ID Status Reason Start Date Expiration Date Visits Re quested Visits Authorized [id number] 1 1 Encounter Details Date Type Department Care Team (Late st Contact Info) Description 06/16/2020 16:00 EST Anesthesia Event [facility] OR [address] [place], [place] [phone] Mushtaq Vuong MD 111 [facility], Level 2 [place] [phone] Elliott Skinner MD Anesthesia Record Procedure Summary [...] Barahona RN 08/06/20 0414 by Nanda Gibson, office admin 03/10/20; Abrasion; Right, Plantar; N; Partial thickness; [...] [facility]. Vitals Value Taken Time BP 06/16/20 1644 [...] told years ago ??? Depression ??? Diabetes ([facility]) A1c 10.3 on 11/28/2019 - poorly controlled [...] protocol. Patient will call GUSTAVO Collado (Diabetes COATER OPERATOR) for any further questions regarding diabetes [...] instruct them to call us back at [phone] to report symptoms (If patient is in [...] [facility] - [address] [phone] Carrington Calderon MD [address] [phone] 02/27/2024 8:30 EDT Telemedicine [facility] Sleep Program - [address] [phone] Dwight Colbert [address] [place] [address] [phone] 02/29/2024 10:30 EDT Appointment [facility] Radiology Nuclear Medicine and PET [address] [phone] 02/29/2024 14:30 EDT Appointment [facility] Radiology Nuclear Medicine and PET [address] [id number] 03/01/2024 8:00 EDT Appointment [facility] Radiology Nuclear Medicine and PET [address] [phone] 03/01/2024 9:30 EDT Appointment [facility] Radiology Nuclear Medicine and [address] [phone] documented as of this encounter Visit Diagnoses [...]
--- OUTSIDE RECORDS SUMMARY | 2024-01-02 06:16 | XMS_ITS | Encounter Summary ---
Author Organization [facility] Address [address] [place] [address] Care Team Providers Care Proteomics Scientist Name Role Phone Unavailable Primary Care Provider Unavailabl e Reason for Referral * SUPERVISOR GEAR REPAIR (Routine) - Specialty Report Received Specialty Diagnoses / Procedures Referred By Annetteac t Referred To Contact Diagnoses of unknown anatomic location Procedures US OB FIRST TRIMESTER (LESS THAN 14 WEEKS) TRANSVAGINAL Charu Flynn MD [address] [place] [phone] Referral ID Status Reason Start Date Expiration Date V isits Requested Visits Authorized [id number] Specialty Report Received 06/20/2020 1 1 Reason for Visit * SUPERVISOR GEAR REPAIR (Routine) - Specialty Report Received Specialty Diagnoses / Procedures Referred By Contac t Referred To Contact Diagnoses of unknown anatomic location Procedures US OB FIRST TRIMESTER (LESS THAN 14 WEEKS) TRANSVAGINAL Charu Flynn MD [address] [phone] Referral ID Status Reason Start Date Expiration Date V isits Requested Visits Authorized [id number] Specialty Report Received 06/20/2020 1 1 Encounter Details Date Type Department Care Team (Latest Contact Info) Description 06/25/2020 10:51 EST - 06/25/2020 23:59 EST Hospital Encounter [facility] Women's Services - [address] [address] of unknown anatomic location Discharge Disposition: Home [...] Info) Description 02/21/2024 9:45 EDT Office Visit [facility] Adult Primary Care [facility] 1 [place], [place] 858[address] Carrington Calderon MD [address] [place] [address] 1 [place] [address] 02/27/2024 8:30 EDT Telemedicine [facility] Sleep Program - [address] [address] ColbertDwight garner [address] [place] [address] 02/29/2024 10:30 EDT Appointment [facility] Radiology Nuclear Medicine and PET [address] [id number] 02/29/2024 14:30 EDT Appointment [facility] Radiology Nuclear Medicine and PET [address] 903141 03/01/2024 8:00 EDT Appointment [facility] Radiology Nuclear Medicine and PET [address] [address] 03/01/2024 9:30 EDT Appointment [facility] Radiology Nuclear Medicine and PET [address] [phone] documented as of this encounter Procedures Procedure [...] 8. View: Sufficient. Impression OB Transvaginal - 62938. 1. of unknown location with findings that [...] 8. View: Sufficient. Impression OB Transvaginal - 20611. 1. of unknown location with findings that [...]
--- OUTSIDE RECORDS SUMMARY | 2024-01-02 06:16 | XMS_ITS | Encounter Summary ---
Author Organization [facility] Address [address] [place] [address] Care Team Providers Care Commercial Producer Name Role Phone Unavailable Primary Care Provider Unavailabl e Reason for Referral * MAINTENANCE PAINTER (Routine) - Specialty Report Received Specialty Diagnoses / Procedures Referred By Contac t Referred To Contact Diagnoses of unknown anatomic location Procedures US OB FIRST TRIMESTER (LESS THAN 14 WEEKS) TRANSVAGINAL Charu Flynn MD [address] [place] [address] 4 [place] [address] Referral ID Status Reason Start Date Expiration Date V isits Requested Visits Authorized [id number] Specialty Report Received 06/20/2020 1 1 Reason for Visit * Reason Onset Date Comments Follow-up 06/20/2020 Encounter Details Date Type Department Care Team (Late st Contact Info) Description 06/20/2020 Telephone [facility] Women's Services [address] [address] Susana Tomlinson RN Follow-up Social [...] Encounter - Susana Tomlinson RN - 06/20/2020 8195 EST Spoke Stella: advised plan per MD [...] call us with any concerns or questions. TUBER MACHINE OPERATOR HELPER nurse line [phone], or after hours MD line [phone]. documented in this encounter Plan of Treatment Upcoming Encounters Date Type Department Care Team (Late st Contact Info) Description 02/21/2024 9:45 EDT Office Visit [facility] Adult Primary Care - [address] [phone] Carrington Calderon MD [address] [phone] 02/27/2024 8:30 EDT Telemedicine [facility] Sleep Program - [address] [phone] Dwight Colbert [address] [place] [address] [phone] 02/29/2024 10:30 EDT Appointment [facility] Radiology Nuclear Medicine and PET - [address] [phone] 02/29/2024 14:30 EDT Appointment [facility] Radiology Nuclear Medicine and PET - [address] 156821 03/01/2024 8:00 EDT Appointment [facility] Radiology Nuclear Medicine and PET [address] [phone] 03/01/2024 9:30 EDT Appointment [facility] Radiology Nuclear Medicine and PET - [address] [address] documented as of this encounter Results * [...] 8. View: Sufficient. Impression OB Transvaginal - 56297. 1. of unknown location with findings that [...] 8. View: Sufficient. Impression OB Transvaginal - 26752. 1. of unknown location with findings that [...] DATE OF SERVICE: 06/25/2020 Charu Flynn MD [facility] OB ORDERA BLES documented in this encounter Visit Diagnoses Diagnosis of unknown anatomic location- Primary state, incidental of unknown anatomic location state, incidental documented in this encounter
--- OUTSIDE RECORDS SUMMARY | 2024-01-02 06:16 | XMS_ITS | Encounter Summary ---
Author Organization [facility] Address [address] [place] [address] Care Team Providers Care Production Sorter Name Role Phone Unavailable Primary Care Provider Unavailabl e Encounter Details Date Type Department Care Team (Late st Contact Info) Description 06/19/2020 13:00 EST Phlebotomy Only [facility] ED Center 2 Phlebotomy [address] [place] [address] Director Of Scientific Research, Acc Phlebotomy of unknown anatomic location (Primary [...] - 06/19/[address] Martínez to discuss Hcg (108). documented in this encounter Plan of Treatment Upcoming Encounters Date Type Department Care Team (Late st Contact Info) Description 02/21/2024 9:45 EDT Office Visit [facility] Adult Primary Care - [address] 168441 Carrington Calderon MD [address] [phone] 02/27/2024 8:30 EDT Telemedicine [facility] Sleep Program - [address] [phone] Dwight Colbert [address] [place] [address] [phone] 02/29/2024 10:30 EDT Appointment [facility] Radiology Nuclear Medicine and PET [address] [id number] 02/29/2024 14:30 EDT Appointment [facility] Radiology Nuclear Medicine and PET [address] 160511 03/01/2024 8:00 EDT Appointment [facility] Radiology Nuclear Medicine and PET [address] [phone] 03/01/2024 9:30 EDT Appointment [facility] Radiology Nuclear Medicine and PET [address] [phone] documented as of this encounter Procedures Procedure Name Priority Date/Time Associated Diagnosis Comments QUANT BETA HCG, Routine 06/19/2020 13:07 EST of unknown anatomic location documented in this encounter Results * (ABNORMAL) QUANT BETA HCG, (06/19/2020 13:07 EST) Beta HCG Quant, 108(H) <5 mIU/ml 06/19/2020 14:38 EST [facility] Comment: NOTE: : Negative: [...] Martínez MD CHEMISTRY & BLOOD GAS ORDERABLES [facility] [address] [place] [address] documented in this encounter Visit Diagnoses Diagnosis of unknown anatomic location- Primary state, incidental documented in this encounter
--- OUTSIDE RECORDS SUMMARY | 2024-01-02 06:16 | XMS_ITS | Encounter Summary ---
Author Organization [facility] Address [address] [place] [address] Care Team Providers Care Dust Mill Operator Name Role Phone Unavailable Primary Care Provider Unavailabl e Encounter Details Date Type Department Care Team (Late st Contact Info) Description 06/13/2020 Orders Only [facility] Adult Primary Care - [address] [phone] Tonja Alejandro PA-C [address] [place] [address] [place] [phone] Tobacco abuse (Primary Dx) Social History [...] 02/21/2024 9:45 EDT Office Visit [facility] Adult Primary Care - [place] [address] [place], [place] [phone] Carrington Calderon MD 1 [facility] Level 1 [place] [phone] 02/27/2024 8:30 EDT Telemedicine [facility] Sleep Program - [address] [place] [address] [place] [address] Dwight Colbert [address] [place] [address] 02/29/2024 10:30 EDT Appointment [facility] Radiology Nuclear Medicine and PET - [address] [address] 02/29/2024 14:30 EDT Appointment [facility] Radiology Nuclear Medicine and PET - [address] 203151 03/01/2024 8:00 EDT Appointment [facility] Radiology Nuclear Medicine and PET - [address] 199661 03/01/2024 9:30 EDT Appointment [facility] Radiology Nuclear Medicine and PET [address] [address] documented as of this encounter Visit Diagnoses Diagnosis Tobacco abuse- Primary Tobacco use disorder documented in this encounter
--- OUTSIDE RECORDS SUMMARY | 2024-01-02 06:16 | XMS_ITS | Encounter Summary ---
Author Organization [facility] Address [address] [place] [address] Care Team Providers Care Wine Steward/Stewardess Name Role Phone Unavailable Primary Care Provider Unavailabl e Encounter Details Date Type Department Care Team (Late st Contact Info) Description 06/25/2020 11:45 EST Phlebotomy Only [facility] ED Center 2 Phlebotomy [address] [place] [address] Cryogenics Repairer, Acc Phlebotomy of unknown anatomic location Social [...] [facility] - [address] [phone] Carrington Calderon MD [address] [phone] 02/27/2024 8:30 EDT Telemedicine [facility] Sleep Program - [address] [phone] Dwight Colbert [address] [place] [address] [phone] 02/29/2024 10:30 EDT Appointment [facility] Rad[facility] Nuclear Medicine and PET - [address] [phone] 02/29/2024 14:30 EDT Appointment [facility] Radiology Nuclear Medicine and PET [facility] [address] [place] [address] 03/01/2024 8:00 EDT Appointment [facility] Radiology Nuclear Medicine and PET [address] [address] 03/01/2024 9:30 EDT Appointment [facility] Radiology Nuclear Medicine and PET [address] [address] documented as of this encounter Procedures Procedure Name Priority Date/Time Associated Diagnosis Comments QUANT BETA HCG, Routine 06/25/2020 10:45 EST of unknown anatomic location documented in this encounter Results * (ABNORMAL) QUANT BETA HCG, (06/25/2020 10:45 EST) Beta HCG Quant, 49(H) <5 mIU/ml 06/25/2020 12:28 EST [facility] Comment: NOTE: : [...] & BLOO D GAS ORDERABLES [facility] [address] [place] [address] documented in this encounter Visit Diagnoses Diagnosis of unknown anatomic location state, incidental documented in this encounter
--- OUTSIDE RECORDS SUMMARY | 2024-01-02 06:16 | XMS_ITS | Encounter Summary ---
Author Organization [facility] Address [address] [place] [address] Care Team Providers Care Community Marketing Coordinator Name Role Phone Unavailable Primary Care Provider Unavailabl e Encounter Details Date Type Department Care Team (Late st Contact Info) Description 06/26/2020 Documentation Visit [facility] Obstetrics & Midwifery - [address] [phone] Nohemy Sales MD 111 [facility], Level 4 [place] [address] Social History Tobacco Use Types [...] 1 pad/hr and 10/10 pain. Will have LEAD ORACLE DEVELOPER RN call today Nohemy Sales MD documented in this encounter Plan of Treatment Upcoming Encounters Date Type Department Care Team (Late st Contact Info) Description 02/21/2024 9:45 EDT Office Visit [facility] [place] [address] Carrington Calderon MD 1 [facility] 1 [place] [address] 02/27/2024 8:30 EDT Telemedicine [facility] Sleep Program - [address] [place] [address] [place] [address] ColbertDwight garner [address] [place] [address] 02/29/2024 10:30 EDT [facility] Radiology Nuclear Medicine and PET - [address] [address] 02/29/2024 14:30 EDT Appointment [facility] Radiology Nuclear Medicine and PET - [address] 618071 03/01/2024 8:00 EDT Appointment [facility] Radiology Nuclear Medicine and PET - [address] [address] 03/01/2024 9:30 EDT [facility]ointment [facility] Radiology Nuclear Medicine and PET - [address] [address] documented as of this encounter Visit Diagnoses Not on filedocumented in this encounter
--- OUTSIDE RECORDS SUMMARY | 2024-01-02 06:16 | XMS_ITS | Encounter Summary ---
Author Organization [facility] Address [address] [place] [address] Care Team Providers Care Authorization Representative Name Role Phone Unavailable Primary Care [...] 02/21/2024 9:45 EDT Office Visit [facility] Adult Primary Care - [address] 387151 Carrington Calderon MD [address] [phone] 02/27/2024 8:30 EDT Telemedicine [facility] Sleep Program - [address] [phone] Dwight Colbert [address] [place] [phone] 02/29/2024 10:30 EDT Appointment [facility] Radiology Nuclear Medicine and PET - [address] 817071 02/29/2024 14:30 EDT Appointment [facility] Radiology Nuclear Medicine and PET - [address] [phone] 03/01/2024 8:00 EDT Appointment [facility] Radiology Nuclear Medicine and PET - [facility] [address] [place], [place] [phone] 03/01/2024 9:30 EDT Appointment [facility] Radiology Nuclear Medicine and PET - [address] [phone] documented as of this encounter Visit Diagnoses Not on filedocumented in this encounter
--- OUTSIDE RECORDS SUMMARY | 2024-01-02 06:16 | XMS_ITS | Encounter Summary ---
Author Organization [facility] Address [address] [place] [address] Care Team Providers Care Papeterie Table Assembler Name Role Phone Unavailable Primary Care Provider Unavailabl e Reason for Visit * Reason Onset Date Comments No Show 06/27/2020 Encounter Details Date Type Department Care Team (Late st Contact Info) Description 06/27/2020 Telephone [facility] Adult Primary Care - [address] [phone] Tonja Alejandro PA-C [address] [place] [address] [place] [phone] No Show Social History Tobacco Use [...] [facility] Adult Primary Care - [address] [address] Carrington Calderon MD [address] [phone] 02/27/2024 8:30 EDT Telemedicine [facility] Sleep Program - [address] [address] Dwight Colbert [address] [place] [address] 02/29/2024 10:30 EDT Appointment [facility] Radiology Nuclear Medicine and PET - [address] 785401 02/29/2024 14:30 EDT Appointment [facility] Radiology Nuclear Medicine and PET [address] [phone] 03/01/2024 8:00 EDT Appointment [facility] Radiology Nuclear Medicine and PET - [address] 734141 03/01/2024 9:30 EDT Appointment [facility] Radiology Nuclear Medicine and PET [address] 919541 documented as of this encounter Visit Diagnoses Not on filedocumented in this encounter
--- OUTSIDE RECORDS SUMMARY | 2024-01-02 06:16 | XMS_ITS | Encounter Summary ---
Author Organization [facility] Address [address] [place] [address] Care Team Providers Care Billing And Insurance Coordinator Name Role Phone Unavailable Primary Care Provider Unavailabl e Reason for Visit * Reason Comments Vaginal Bleeding Vaginal bleeding, ba ck pain, and cramping since tuesday, not soaking pads, only when wiping. seen here previously for toe amputation. Encounter Details Date Type Department Care Team (Late st Contact Info) Description 06/23/2020 8:23 EST - 06/23/2020 14:10 EST Emergency [facility] Emergency Department - [address] [address] Siobhan Hare PA-C [address] [place] [address], Level 1 [place] [address] of unknown anatomic location (Primary [...] Means Destination Comment s Home or Self Senior Care Pt dc home with WC with partner, [...] 10/2018 10w4d ECTOPIC Comments: interstitial diagnosed at [facility]; given MTX 10/26/18 7 SAB 01/2018 6w0d SAB Comments: D&C at [facility] after nonviable on US; had to have repeat D&Bhavna April for retained POCs 6 06/2017 6w0d SAB Comments: D&C at [facility]; nonviable seen on US; fourth with current 5 SAB 02/2017 6w0d SAB Comments: D&C at [facility]; third with current 4 SAB 08/2015 10w0d SAB Comments: D&C at [facility]; 2nd with current 3 SAB 01/2015 9w0d SAB Comments: D&C at [facility]; first current 2 SAB 2005 6w0d SAB Comments: first ; ex ; twin confirmed by US at [facility]; no medical or surgical tx 1 Past GynHx: MTX given 10/26/2018 for interstitial . See above. PMedHx: Past Medical History: Diagnosis Date ??? Anxiety ??? Arthritis 12/05/19- Spine- told years ago ??? Depression ??? Diabetes ([facility]) A1c 10.3 on 11/28/2019 - poorly controlled ??? Difficulty opening mouth 06/13/2020 pain with opening mouth wide ??? Does not exercise 06/13/2020 due to infected toe ??? History of general anesthesia ??? Hx of ectopic 06/20/2020 ??? Irritable bowel syndrome 06/13/2020 ? ? Nausea & vomiting occasionally ??? Obesity, unspecified ??? Osteomyelitis ([facility]) of left great toe ??? Peripheral [...] file Gets together: Not on file Attends druze service: Not on file Active member of [...] Kenyon MD 06/23/2020 13:39 PGY4, OBGYN Pager #[phone] documented in this encounter ED Notes * [...] the Emergency Department: Good PCP: Tonja Alejandro [facility] 06/28/2020 17:56 No flowsheet data found. * Madelin Ma RN - 06/23/2020 1230 EST HARBOR PILOT at bedside * Marychuy Kaufman - 06/23/2020 0905 EST Blood drawn via saline lock per protocol, tiger and purple tube(s) sent to lab per order. documented in this encounter Plan of Treatment Upcoming Encounters Date Type Department Care Team (Late st Contact Info) Description 02/21/2024 9:45 EDT Office Visit [facility] Adult Primary Care - [address] [phone] Carrington Calderon MD 1 [facility] 1 [place] [phone] 02/27/2024 8:30 EDT Telemedicine [facility] Sleep Program - [address] [place] [address] Dwight Colbert [address] [place] [address] 02/29/2024 10:30 EDT [facility] Radiology Nuclear Medicine and PET - [address] [address] 02/29/2024 14:30 EDT Appointment [facility] Radiology Nuclear Medicine and PET [address] [phone] 03/01/2024 8:00 EDT Appointment [facility] Radiology Nuclear Medicine and PET - [address] [phone] 03/01/2024 9:30 EDT Appointment [facility] Radiology Nuclear Medicine and PET - [address] [id number] documented as of this encounter Procedures Procedure [...] for nonviable early in the first trimester. [place] Journal of Medicine 369.15 (2013): 1771-8602. I have personally reviewed the images and [...] AND SYMPTOMS/COMMENTS: of unknown location, LMP 05/06, [id number] two days ago, not doubling appropriately COMPARISON: [...] likely. Follow-up with obstetrics/gynecology issuggested. Reference: Ismael Ramsey, et al. Diagnostic criteria for nonviablepregnancy early in the first trimester. [place] Journal of Erhhuwlr103.15 (2013): 6103-6404. I have personally reviewed the images and the above interpretation andagree with the findings. Siobhan Hare PA-C IMG US OB OR DERABLES * [facility] LAB CBC SMEAR REVIEW (06/23/2020 8:53 EST) Differential Comment Slide was examined by a technologist to verify the WBC and/or platelet count. 06/23/2020 9:44 [facility] Blood VENOUS BLOOD / Unknown Venipuncture / Unknown 06/23/2020 8:53 EST 06/23/2020 9:06 EST Siobhan Hare PA-C HEMATOLOGY & PF4 ORDERABLES [facility] [address] [place] [address] * (ABNORMAL) COMPLETE BLOOD COUNT AND DIFFERENTIAL (06/23/2020 8:53 EST) WBC 6.42 4.00 - 12.40 K/cmm 06/23/2020 9:45 [facility] RBC 4.96 3.86 - 5.04 M/cmm 06/23/2020 9:45 [facility] Hemoglobin 15.4(H) 11.6 - 15.2 gm/dL 06/23/2020 9:45 [facility] HCT 43.6 34.9 - 44.4 % 06/23/2020 9:45 [facility] MCV 88 81 - 98 fl 06/23/2020 9:45 [facility] MCH 31.0 26.7 - 33.3 pg 06/23/2020 9:45 [facility] MCHC 35.3 32.1 - 35.9 gm/dL 06/23/2020 9:45 [facility] RDW-CV 12.0 <14.7 % 06/23/2020 9:45 [facility] RDW-SD 38.6 <50.4 fl 06/23/2020 9:45 [facility] PLT 06/23/2020 9:45 [facility] Comment:Unreportable due to presence of platelet clumps. MPV 06/23/2020 9:45 [facility] Comment:Not Available % Neutrophils 52.1 % 06/23/2020 9:45 [facility] % Lymphocytes 41.0 % 06/23/2020 9:45 [facility] % Monocytes 4.7 % 06/23/2020 9:45 [facility] % Eosinophils 1.7 % 06/23/2020 9:45 [facility] % Basophils 0.3 % 06/23/2020 9:45 [facility] % Immature Grans 0.2 % 06/23/19 9:45 [facility] Absolute Neutrophils 3.35 2.20 - 8.85 K/cmm 06/23/2020 9:45 [facility] Absolute Lymphocytes 2.63 1.09 - 3.30 K/cmm 06/23/2020 9:45 [facility] Absolute Monocytes 0.30 0.10 - 0.80 K/cmm 06/23/2020 9:45 [facility] Absolute Eosinophils 0.11 0.03 - 0.61 K/cmm 06/23/2020 9:45 [facility] ABS Basophils 0.02 0.01 - 0.11 K/cmm 06/23/2020 9:45 [facility] Absolute Immature Grans 0.01 0.00 - 0.06 K/cmm 06/23/2020 9:45 [facility] Type of Differential: Auto 06/23/2020 9:45 [facility] Blood VENOUS BLOOD / Unknown Venipuncture / Unknown 06/23/2020 8:53 EST 06/23/2020 9:06 EST Siobhan Hare PA-C PACKAGES & D NA PROBE ORDERABLES [facility] [address] [place] [address] * (ABNORMAL) COMPREHENSIVE METABOLIC PANEL (CMP) (06/23/2020 8:53 EST) Sodium 143 136 - 145 mEq/L 06/23/2020 9:24 [facility] Potassium 5.0 3.5 - 5.0 mEq/L 06/23/2020 9:24 [facility] Comment:Slight hemolysis chica ntified, interpret with caution as hemolysis will elevate potassium result. Chloride 101 96 - 110 mEq/L 06/23/2020 9:24 [facility] CO2 Total 28 22 - 32 mEq/L 06/23/2020 9:24 [facility] Glucose 249(H) 70 - 100 mg/dL 06/23/2020 9:24 [facility] BUN 12 10 - 26 mg/dL 06/23/2020 9:24 [facility] Comment: Slight hemolysis identified, interpret with caution as results may be affected due to hemolysis. Creatinine 0.44(L) 0.52 - 1.04 mg/dL 06/23/2020 9:24 [facility] eGFR 131 >60 mL/min/1.7 3m2 06/23/2020 9:24 [facility] Comment:eGFR calculated gil g CKD-EPI equation for non- Americans. Multiply eGFR by 1.16 for patients. Total Protein 8.5(H) 6.3 - 8.2 g/dL 06/23/2020 9:24 [facility] Comment:Slight hemolysis chica ntified, interpret with caution as results may be affected due to hemolysis. Albumin 4.9 3.4 - 4.9 g/dL 06/23/2020 9:24 [facility] Comment:Slight hemolysis chica ntified, interpret with caution as results may be affected due to hemolysis. Alkaline Phosphatase 118 38 - 126 U/L 06/23/2020 9:24 [facility] Comment:Slight hemolysis chica ntified, hemolysis will decrease ALKP result. Interpret with caution as results may be affected due to hemolysis. AST 36 15 - 46 U/L 06/23/2020 9:24 [facility] Comment:Slight hemolysis chica ntified, interpret with caution as results may be affected due to hemolysis. ALT 20 <35 U/L 06/23/2020 9:24 [facility] Bilirubin, Total 0.7 <1.4 mg/dL 06/23/19 9:24 [facility] Calcium 10.2 8.5 - 10.5 mg/dL 06/23/2020 9:24 [facility] Calculated Calcium 9.5 8.5 - 10.5 mg/dL 06/23/2020 9:24 [facility] Comment:Slight hemolysis chica ntified, interpret with caution as results may be affected due to hemolysis. Blood VENOUS BLOOD / Unknown Venipuncture / Unknown 06/23/2020 8:53 EST 06/23/2020 9:06 EST Siobhan Hare PA-C CHEMISTRY & BLOOD GAS ORDERABLES [facility] [address] [place] [address] * (ABNORMAL) QUANT BETA HCG, (06/23/2020 8:53 EST) Beta HCG Quant, 111(H) <5 mIU/ml 06/23/2020 9:38 EST [facility] Comment: NOTE: : Negative: [...] Hare PA-C CHEMISTRY & BLOOD GAS ORDERABLES [facility] [address] [place] [address] documented in this encounter Visit Diagnoses Diagnosis of unknown anatomic location- Primary state, incidental documented in this encounter
--- OUTSIDE RECORDS SUMMARY | 2024-01-02 06:16 | XMS_ITS | Encounter Summary ---
Author Organization [facility] Address [address] [place] [address] Care Team Providers Care Machine Operator Cane Cutter Name Role Phone Unavailable Primary Care Provider [...] [facility] Adult Primary Care - [address] [phone] Carrington Calderon MD [address] [phone] 02/27/2024 8:30 EDT Telemedicine [facility] Sleep Program - [address] 185011 Dwight Colbert [address] [place] [phone] 02/29/2024 10:30 EDT Appointment [facility] Radiology Nuclear Medicine and PET - [address] [phone] 02/29/2024 14:30 EDT Appointment [facility] Radiology Nuclear Medicine and PET - [address] [phone] 03/01/2024 8:00 EDT Appointment [facility] Radiology Nuclear Medicine and PET - [facility] [address] [place], [place] [phone] 03/01/2024 9:30 EDT Appointment [facility] Radiology Nuclear Medicine and PET - [address] [phone] documented as of this encounter Visit Diagnoses Not on filedocumented in this encounter
--- OUTSIDE RECORDS SUMMARY | 2024-01-02 06:16 | XMS_ITS | Encounter Summary ---
Author Organization [facility] Address [address] [place] [address] Care Team Providers Care Tube Draw Helper Name Role Phone Unavailable Primary Care Provider Unavailabl e Reason for Visit * Reason Onset Date Comments Follow-up 06/21/2020 Encounter Details Date Type Department Care Team (Late st Contact Info) Description 06/21/2020 Telephone [facility] Women's Services [facility] [address] [place], [place] [phone] Mackenzie Kenyon MD [address] [phone] Follow-up Social History Tobacco Use Types Packs/Day [...] Kenyon MD 06/21/2020 12:12 PGY4, OBGYN Pager #[phone] documented in this encounter Plan of Treatment Upcoming Encounters Date Type Department Care Team (Late st Contact Info) Description 02/21/2024 9:45 EDT Office Visit [facility] Adult Primary Care - [address] [phone] Carrington Calderon MD [address] [phone] 02/27/2024 8:30 EDT Telemedicine [facility] Sleep Program - [address] 192611 Dwight Colbert [address] [place] [phone] 02/29/2024 10:30 EDT Appointment [facility] Radiology Nuclear Medicine and PET - [address] [id number] 02/29/2024 14:30 EDT Appointment [facility] Radiology Nuclear Medicine and PET - [address] [phone] 03/01/2024 8:00 EDT Appointment [facility] Radiology Nuclear Medicine and PET - [address] [phone] 03/01/2024 9:30 EDT Appointment [facility] Radiology Nuclear Medicine and PET - [address] [address] documented as of this encounter Visit Diagnoses Diagnosis of unknown anatomic location- Primary state, incidental documented in this encounter
--- OUTSIDE RECORDS SUMMARY | 2024-01-02 06:16 | XMS_ITS | Encounter Summary ---
Author Organization [facility] Address [address] [place] [address] Care Team Providers Care Lithograph Press Operator Name Role Phone Unavailable Primary Care Provider Unavailabl e Reason for Visit * Reason Onset Date Comments Follow-up 06/27/2020 Encounter Details Date Type Department Care Team (Late st Contact Info) Description 06/27/[address] [facility] Women's Services [facility] [address] [place] [address] Susana Tomlinson, RN Follow-up Social History Tobacco [...] Description 02/21/2024 9:45 EDT Office Visit [facility] Adult Primary Care - [address] [phone] Carrington Calderon MD 1 [facility] 1 [place] [address] 02/27/2024 8:[address] [facility] Sleep Program - [address] [phone] Dwight Colbert [address] [place] [phone] 02/29/2024 10:30 EDT Appointment [facility] Radiology Nuclear Medicine and PET - [address] [id number] 02/29/2024 14:30 EDT Appointment [facility] Radiology Nuclear Medicine and PET - [address] [id number] 03/01/2024 8:00 EDT Appointment [facility] Radiology Nuclear Medicine and PET - [address] [phone] 03/01/2024 9:30 EDT Appointment [facility] Radiology Nuclear Medicine and PET - [address] [phone] documented as of this encounter Visit Diagnoses Not on filedocumented in this encounter
--- OUTSIDE RECORDS SUMMARY | 2024-01-02 06:16 | XMS_ITS | Encounter Summary ---
Author Organization [facility] Address [address] [place] [address] Care Team Providers Care Promotions Executive Name Role Phone Unavailable Primary Care Provider [...] [facility] Adult Primary Care - [address] 472431 Carrington Calderon MD [address] [phone] 02/27/2024 8:30 EDT Telemedicine [facility] Sleep Program - [address] 3817[address] Dwight Colbert [address] [place] [phone] 02/29/2024 10:30 EDT Appointment [facility] Radiology Nuclear Medicine and PET - [address] [phone] 02/29/2024 14:30 EDT Appointment [facility] Radiology Nuclear Medicine and PET - [address] [phone] 03/01/2024 8:00 EDT Appointment [facility] Radiology Nuclear Medicine and PET - [facility] [address] [place], [place] [phone] 03/01/2024 9:30 EDT Appointment [facility] Radiology Nuclear Medicine and PET - [address] [phone] documented as of this encounter Visit Diagnoses Not on filedocumented in this encounter
--- OUTSIDE RECORDS SUMMARY | 2024-01-02 06:16 | XMS_ITS | Encounter Summary ---
Author Organization [facility] Address [address] [place] [address] Care Team Providers Care Hot Tar Roofer Helper Name Role Phone Unavailable Primary Care Provider Unavailabl e Encounter Details Date Type Department Care Team (Late st Contact Info) Description 06/26/2020 Orders Only [facility] Women's Services - [facility] [address] [place], [place] 3900[address] Marisa Tony MD [address] [place] [phone] Social History Tobacco Use Types Packs/Day Years [...] for tramadol 50mg. Instructed patient to call linen room houseperson number if sx worsen. Marisa Tony MD Reconciling Clerk PGY-1 Pager [phone] documented in this encounter Plan of Treatment Upcoming Encounters Date Type Department Care Team (Late st Contact Info) Description 02/21/2024 9:45 EDT Office Visit [facility] Adult Primary Care - [address] [phone] Carrington Calderon MD [address] [phone] 02/27/2024 8:30 EDT Telemedicine [facility] Sleep Program - [address] [phone] Dwight Colbert [address] [place] [phone] 02/29/2024 10:30 EDT Appointment [facility] Radiology Nuclear Medicine and PET [address] [address]41 02/29/2024 14:30 EDT Appointment [facility] Radiology Nuclear Medicine and PET [address] [phone] 03/01/2024 8:00 EDT Appointment [facility] Radiology Nuclear Medicine and PET [address] [phone] 03/01/2024 9:30 EDT Appointment [facility] Radiology Nuclear Medicine and PET [address] [phone] documented as of this encounter Visit Diagnoses Not on filedocumented in this encounter
--- OUTSIDE RECORDS SUMMARY | 2024-01-02 06:16 | XMS_ITS | Encounter Summary ---
Author Organization [facility] Address [address] [place] [address] Care Team Providers Care Gamer Name Role Phone Unavailable Primary Care Provider Unavailabl e Reason for Referral * SINGLE PASS SOIL STABILIZER OPERATOR (Routine) - Specialty Report Received Specialty Diagnoses / Procedures Referred By Kit t Referred To Contact Diagnoses of unknown anatomic location Procedures OB FIRST TRIMESTER (LESS THAN 14 WEEKS) TRANSVAGINAL David Martínez MD [address] [place] [phone] Referral ID Status Reason Start Date Expiration Date V isits Requested Visits Authorized [id number] Specialty Report Received 06/19/2020 1 1 Reason for Visit * SINGLE PASS SOIL STABILIZER OPERATOR (Routine) - Specialty Report Received Specialty Diagnoses / Procedures Referred By Kit goode Referred To Contact Diagnoses of unknown anatomic location Procedures US OB FIRST TRIMESTER (LESS THAN 14 WEEKS) TRANSVAGINAL David Martínez MD [address] [place] [phone] Referral ID Status Reason Start Date Expiration Date V isits Requested Visits Authorized [id number] Specialty Report Received 06/19/2020 1 1 Encounter Details Date Type Department Care Team (Latest Contact Info) Description 06/20/2020 9:00 EST - 06/20/2020 23:59 EST Hospital Encounter [facility] Women's Services [address] [address] of unknown anatomic location Discharge Disposition: Home [...] 1 tab AM, noon, 3 tabs in fiordailza 400 Cap 06/05/2020 08/01/2020 insulin aspart U-100 [...] [facility] - [address] [phone] Carrington Calderon MD [address] [phone] 02/27/2024 8:30 EDT Telemedicine [facility] Sleep Program - [address] [phone] Sayra Dwight [address] [place] [phone] 02/29/2024 10:30 EDT Appointment [facility] Radiology Nuclear Medicine and PET [address] [id number] 02/29/2024 14:30 EDT Appointment [facility] Radiology Nuclear Medicine and PET [address] [phone] 03/01/2024 8:00 EDT Appointment [facility] Radiology Nuclear Medicine and PET [address] [phone] 03/01/2024 9:30 EDT Appointment [facility] Radiology Nuclear Medicine and PET [address] [phone] documented as of this encounter Procedures Procedure [...] Sufficient. Impression 1st Trimester OB scan ,transvaginal +[id number] There is no visualized gestational sac either [...] The adnexa appear normal. Follow-up Per the [employer] E[employer]OR [employer] SERVICER service. Comment ========= Results discussed w/patient. DATE [...] Sufficient. Impression 1st Trimester OB scan ,transvaginal +[id number] There is no visualized gestational sac either [...] The adnexa appear normal. Follow-up Per the [employer] SERVIC[employer] service. Comment ========= Results discussed w/patient. DATE [...] Sufficient. Impression 1st Trimester OB scan ,transvaginal +[id number] There is no visualized gestational sac either [...] The adnexa appear normal. Follow-up Per the [employer] E[employer] AND SERVICER service. Comment ========= Results discussed w/patient. DATE OF SERVICE: 06/20/2020 David Martínez MD [facility] OB ORDERAB LES documented in this encounter Visit Diagnoses Diagnosis of unknown anatomic location state, incidental documented in this encounter
--- OUTSIDE RECORDS SUMMARY | 2024-01-02 06:16 | XMS_ITS | Encounter Summary ---
Author Organization [facility] Address [address] [place] [address] Care Team Providers Care City Clerk Name Role Phone Unavailable Primary Care Provider Unavailabl e Reason for Visit * Reason Comments Encounter Details Date Type Department Care Team (Late st Contact Info) Description 06/20/2020 9:45 EST Office Visit [facility] Reproductive Medicine & Infertility Center - [address] [phone] Cielo Duggan MD 111 [facility], Level [address] [place] [address] of unknown anatomic location (Primary [...] Notes * Cielo Duggan MD - 06/20/2020 0968 EST Images from the original note were not included. [facility] Women???[facility] Systems Applications Programming Lead Center-Level 4 [facility] FIRST TRIMESTER ULTRASOUND Reason for Visit: [...] precaustions 2.) hcg am of 06/21 with PROTOCOL MANAGER service to follow documented in this encounter Plan of Treatment Upcoming Encounters Date Type Department Care Team (Late st Contact Info) Description 02/21/2024 9:45 EDT Office Visit [facility] Adult Primary Care - [address] [address] Carrington Calderon MD 1 [facility] Level 1 [place] [address] 02/27/2024 8:30 EDT Telemedicine [facility] Sleep Program - [address] [place] [address] Dwight Colbert [address] [place] [address] 02/29/2024 10:30 EDT Appointment [facility] Radiology Nuclear Medicine and PET [address] [address] 02/29/2024 14:30 EDT Appointment [facility] Radiology Nuclear Medicine and PET [address] [phone] 03/01/2024 8:00 EDT Appointment [facility] Radiology Nuclear Medicine and PET [address] [phone] 03/01/2024 9:30 EDT Appointment [facility] Radiology Nuclear Medicine and PET [address] [address] documented as of this encounter Visit Diagnoses [...]
--- OUTSIDE RECORDS SUMMARY | 2024-01-02 06:16 | XMS_ITS | Encounter Summary ---
Author Organization [facility] Address [address] [place] [address] Care Team Providers Care Crop Roller Name Role Phone Unavailable Primary Care Provider Unavailabl e Reason for Visit * Auth/Cert Specialty Diagnoses / Procedures Referred By Contac t Referred To Contact Diagnoses Encounter for sterilization Procedures IA LAP,RMV ADNEXAL STRUCTURE Laparoscopic Bilateral Salpingectomy Referral ID Status Reason Start Date Expiration Date Visits Re quested Visits Authorized [id number] 1 1 Encounter Details Date Type Department Care Team (Latest Contact Info) Description 06/16/2020 13:35 EST - 06/16/2020 17:05 [facility] Hospital Encounter [facility] Main [place] [address] [place] [address] Elza Navarro DPDickson [address] [place] [phone] Osteomyelitis of left foot, unspecified type ([facility]) Discharge Disposition: Home or Self Care Social [...] can be contacted during weekday officehours at [phone]. If there is an emergency, Dr. Navarro may also be contacted via pager by calling the at [phone] or [phone] (pager # [phone]). documented in this encounter Medications at Time [...] last A1c was 9.1. According to her programming manager, patient is instructed to take 32 units [...] ago ??? Depression ??? 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 History of CAD (history of ME or a positive ETT, current ischemic chest [...] SERVICE DATE: 06/16/2020 SURGEON: Elza Navarro DPM MULTI NEEDLE MACHINE OPERATOR: None. PREOPERATIVE DIAGNOSIS: Left great toe osteomyelitis. [...] retained. Elza Navarro DPM / DC Confirmation: [id number] Dictation ID: [id number] cc: documented in this encounter Miscellaneous Notes * Brief Op Note - Elza Navarro DPM - 06/16/2020 1644 EST Date: 06/16/2020 Location: [facility] OR Name: Cristy Luo, : 1985, Diagnosis Pre-op Diagnosis * Osteomyelitis of toe of left foot ([facility]) [M86.9] * Type 2 diabetes mellitus with diabetic polyneuropathy, with long-term current use of insulin ([facility]) [E11.42, Z79.4] Post-op Diagnosis * Osteomyelitis of toe of left foot ([facility]) [M86.9] * Type 2 diabetes mellitus with diabetic polyneuropathy, with long-term current use of insulin ([facility]) [E11.42, Z79.4] Procedures Left great toe amputation 23648 - IA AMPUTATION TOE,MT-P JT Surgeons * Elza Navarro DPM - Primary Procedure Summary Anesthesia: Monitor Anesthesia Care ASA: ASA status not filed in the log. Estimated Blood Loss: < 5 cc Total IV Fluids: per anesthesia Staff: Upstairs Maid: Cherie Mayes RN Scrub Person: Arturo Pelletier Patient Head Of Product: Carlita Charles Indications: Stella Luo is an [...] protocol. Patient will call GUSTAVO Collado (Diabetes MATERIAL CONTROL SPECIALIST) for any further questions regarding diabetes management pre op NAOMI NAVA RN * PAT Note - Naomi Nava RN - 06/13/2020 6270 EST COVID 19 Screening Perioperative at time [...] instruct them to call us back at [phone] to report symptoms (If patient is in [...] [facility] - [address] [address] Carrington Calderon MD 1 [facility] [address] [place] [address] 02/27/2024 8:30 EDT Telemedicine [facility] Sleep Program - [address] [address] Dwight Colbert [address] [place] [phone] 02/29/2024 10:30 EDT Appointment [facility] Radiology Nuclear Medicine and PET - [address] [address] 02/29/2024 14:30 EDT Appointment [facility] Radiology Nuclear Medicine and PET - [address] [address]158 [phone] 03/01/2024 8:00 EDT Appointment [facility] Radiology Nuclear Medicine and PET [address] [address] 03/01/2024 9:30 EDT Appointment [facility] Radiology Nuclear Medicine and PET [address] [address] Pending Results Name Type Priority Associated Diagnoses [...] EST Osteomyelitis of toe of left foot ([facility]) Type 2 diabetes mellitus with diabetic polyneuropathy, with long-term current use of insulin ([facility]) Special Needs Foot Set, Patient already has surgical shoe POCT GLUCOSE, INTERFACED Routine 06/16/2020 14:40 EST POCT CSN BARCODE URINE PREG TEST STAT 06/16/2020 14:22 EST documented in this encounter Results * PATHOLOGY - SCANNED (06/20/2020 11:10 EST) 06/20/2020 11:1 0 EST Scan 2 Welfare Officer LAB INFO SERVICE AN D SUPPORT & PHONE RESULT * SURGICAL PATHOLOGY (06/16/2020 16:21 EST) Final Diagnosis A. TOE, LEFT GREAT, AMPUTATION: - Acute osteomyelitis. - Disarticulated joint with no gross evidence of acute osteomyelitis. - Skin with ulceration and acute cellulitis. 06/19/2020 15:19 EST [facility] Attestation There was significant resident/fellow involvement in the diagnostic evaluation of this case. By the signature below, the attending physician certifies that they have personally conducted a gross and/or microscopic examination of the described specimens and rendered or confirmed the above diagnosis. 06/19/2020 15:19 [facility] at 1519 Clinical History Left great toe osteomyelitis 06/19/2020 15:19 [facility] Gross Description A. [...] unguis is pale yellow firm and unremarkable. Bag Patcher sections are submitted as follows: BLOCK SHIELDS A1-A2- underlying bone, acid decalcification A3- defect to skin and soft tissue margins EUNICE GUAJARDO(ASCP) 06/17/2020 11:11 06/19/2020 15:19 [facility] Resident/Cash w: Emory Nazario DO 06/19/2020 15:19 [facility] Performing Lab [facility] 15:19 [facility] Scanned Images 06/19/2020 15:19 [facility] Tissue AMPUTATION / Unknown 06/16/2020 16:21 EST 06/16/2020 21:33 EST Comment:Left great toe osteo myelitis Elza Navarro DPDickson PATHOLOGY ORDERABLES [facility] [address] [place] [address] * (ABNORMAL) ANAEROBE CULTURE/SMEAR(INC. AEROBES), OTHER (06/16/2020 16:21 EST) Organism ID Moderate Streptococcus agalactiae(A) 1 8:41 [facility] Comment:Penicillin and ampic illin are drugs of choice for treatment of beta hemolytic streptococcal infections. Organism ID Few Staphylococcus aureus(A) VITEK SUSCEPTIBILITY 1 8:41 [facility] Comment:Susceptible to nafci llin, cephalosporins and other beta lactam antibiotics (mecA gene product absent). Organism ID Few Gram-Positive Rods Aerobic (Group) 1 8:41 [facility] Organism ID Rare Prevotella bivia(A) 1 8:41 [facility] Organism ID Few Anaerococcus tetradius(A) 1 8:41 [facility] Smear Many Neutrophils Present 1 8:41 [facility] Smear Moderate Gram Positive Cocci 1 8:41 [facility] Bone ENTIRE TOE [...] Navarro DPM MICROBIOLOGY - GENER AL ORDERABLES [facility] [address] [place] [address] * (ABNORMAL) POCT GLUCOSE, INTERFACED (06/16/2020 14:40 EST) Glucose, POC 166(H) 70 - 100 mg/dL 06/16/2020 14:43 EST [facility] natural resources faculty 06/16/2020 14:43 EST [facility] HN LAB POC COMMENT (GLUCOSE) Test Performed by Nursing Services 06/16/2020 14:43 EST [facility] Blood CAPILLARY BLOOD / Unknown 06/16/2020 14:40 EST 06/16/2020 14:43 EST Elza Navarro DPM POINT OF CARE TEST O RDERABLES Performing Organization Address City/[facility]/ZIP Co de Phone Number [facility] [address] [place] [address] * POCT CSN BARCODE URINE PREG TEST (06/16/2020 14:22 EST) Hold Hold 06/16/2020 16:30 EST [facility] Urine URINE SPECIMEN COLLECTION, CLEAN CATCH / Unknown 06/16/2020 14:22 EST 06/16/2020 14:22 EST Tiff Salcedo MD LAB INFO SERVICE AND SUPPORT & PHONE RESULT Performing Organization Address City/[facility] Co de Phone Number [facility] [address] [place] [address] documented in this encounter Visit Diagnoses Diagnosis Osteomyelitis of left foot, unspecified type ([facility]) Osteomyelitis of toe of left foot ([facility]) Unspecified osteomyelitis, ankle and foot Type 2 diabetes mellitus with diabetic polyneuropathy, with long-term current use of insulin ([facility]) documented in this encounter Admitting Diagnoses Diagnosis Osteomyelitis of toe of left foot ([facility]) Unspecified osteomyelitis, ankle and foot Type 2 diabetes mellitus with diabetic polyneuropathy, with long-term current use of insulin ([facility]) documented in this [...]
--- OUTSIDE RECORDS SUMMARY | 2024-01-02 06:16 | XMS_ITS | Encounter Summary ---
Author Organization [facility] Address [address] [place] [address] Care Team Providers Care Motor Coach Tour Operator Name Role Phone Unavailable Primary Care Provider Unavailabl e Encounter Details Date Type Department Care Team (Late st Contact Info) Description 06/21/2020 9:15 EST Phlebotomy Only [facility] ED Center 2 Phlebotomy [address] [place] [address] Price Changer, Acc Phlebotomy of unknown anatomic location Social [...] [facility] Adult [facility] Care - [address] [phone] Carrington Calderon MD [address] [phone] 02/27/2024 8:30 EDT Telemedicine [facility] Sleep Program - [address] [address] Dwight Colbert [address] [place] [phone] 02/29/2024 10:30 EDT [facility] [place] [facility] and PET - [address] [phone] 02/29/2024 14:30 EDT Appointment [facility] Radiology Nuclear Medicine and PET [address] [address] 03/01/2024 8:00 EDT Appointment [facility] Radiology Nuclear Medicine and PET [address] [address] 03/01/2024 9:30 EDT Appointment [facility] Radiology Nuclear Medicine and PET [address] [address] documented as of this encounter Procedures Procedure Name Priority Date/Time Associated Diagnosis Comments QUANT BETA HCG, Routine 06/21/2020 9:14 EST of unknown anatomic location documented in this encounter Results * (ABNORMAL) QUANT BETA HCG, (06/21/2020 9:14 EST) Beta HCG Quant, 152(H) <5 mIU/ml 06/21/2020 11:01 EST [facility] Comment: NOTE: : Negative: [...] Martínez MD CHEMISTRY & BLOOD GAS ORDERABLES [facility] [address] [place] [address] documented in this encounter Visit Diagnoses Diagnosis of unknown anatomic location state, incidental documented in this encounter
--- OUTSIDE RECORDS SUMMARY | 2024-01-02 06:16 | XMS_ITS | Encounter Summary ---
Author Organization [facility] Address [address] [place] [address] Care Team Providers Care Emergency Operator Name Role Phone Unavailable Primary Care [...] [facility] Adult Primary Care - [address] [phone] Carrington Calderon MD [address] [phone] 02/27/2024 8:30 EDT Telemedicine [facility] Sleep Program - [address] [phone] Dwight Colbert [address] [place] [phone] 02/29/2024 10:30 EDT Appointment [facility] Radiology Nuclear Medicine and PET - [address] [address] 02/29/2024 14:30 EDT Appointment [facility] Radiology Nuclear Medicine and PET - [address] [phone] 03/01/2024 8:00 EDT Appointment [facility] Radiology Nuclear Medicine and PET - [facility] [address] [place], [place] [phone] 03/01/2024 9:30 EDT Appointment [facility] Radiology Nuclear Medicine and PET - [address] [phone] documented as of this encounter Visit Diagnoses Not on filedocumented in this encounter
--- OUTSIDE RECORDS SUMMARY | 2024-01-02 06:16 | XMS_ITS | Encounter Summary ---
Author Organization [facility] Address [address] [place] [address] Care Team Providers Care Logging Crew Foreman Name Role Phone Unavailable Primary Care Provider Unavailabl e Reason for Referral * POWER DIGGER OPERATOR (Routine) - Specialty Report Received Specialty Diagnoses / Procedures [facility] Referred To Contact Diagnoses of unknown anatomic location Procedures US OB FIRST TRIMESTER (LESS THAN 14 WEEKS) TRANSVAGINAL David Martínez MD [address] [place] [phone] Referral ID Status Reason Start Date Expiration Date V isits Requested Visits Authorized [id number] Specialty Report Received 06/19/2020 1 1 Reason for Visit * Reason Onset Date Comments 06/18/2020 Encounter Details Date Type Department Care Team (Late st Contact Info) Description 06/18/2020 Telephone [facility] Women's Services - [address] [address] Nohemy Sales MD [address] [place] [phone] Social History Tobacco Use Types Packs/Day [...] Tuesday - heavier on Tuesday and Tuesday, 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 Almonte - ideally should be OPERATION SPECIALIST provider managing at this time. Dr. Martínez [...] she is able to come down to [facility] lab for this lab draw and understands plan. She had no further questions and verbalized understanding of plan. Will follow up when [facility] comes back. * Telephone Encounter - Elza Nieves - 06/18/2020 0821 EST Have you been seen here before for OB care? Yes If yes, who did you see (Refer to [facility]gap if can???t remember)? [facility] on [facility], diabetic. Reason for Call as described by [...] for us to reach you back at? [phone] What time of day is the best [...] [facility] Adult Primary Care - [address] [phone] Carrington Calderon MD 1 [facility] 1 [place] [phone] 02/27/2024 8:30 EDT Telemedicine [facility] Sleep Program - [address] [phone] Dwight Colbert [address] [place], [place] [address] 02/29/2024 10:30 EDT Appointment [facility] Radiology Nuclear Medicine and PET [address] [id number] 02/29/2024 14:30 EDT Appointment [facility] Radiology Nuclear Medicine and PET [address] [phone] 03/01/2024 8:00 EDT Appointment [facility] Radiology Nuclear Medicine and PET [address] [phone] 03/01/2024 9:30 EDT Appointment [facility] Radiology Nuclear Medicine and PET [address] 156141 documented as of this encounter Results * (ABNORMAL) QUANT BETA HCG, (06/21/2020 9:14 EST) [facility] Beta HCG Quant, 152(H) <5 mIU/ml 06/21/2020 11:01 EST [facility] Comment: NOTE: [...] Martínez MD CHEMISTRY & BLOOD GAS ORDERABLES [facility] [address] [place] [address] * US OB FIRST TRIMESTER (LESS THAN [...] Sufficient. Impression 1st Trimester OB scan ,transvaginal +[id number] There is no visualized gestational sac either [...] The adnexa appear normal. Follow-up Per the OPERATION SPECIALIST service. Comment ========= Results discussed w/patient. DATE [...] Sufficient. Impression 1st Trimester OB scan ,transvaginal +[id number] There is no visualized gestational sac either [...] The adnexa appear normal. Follow-up Per the OPERATION SPECIALIST service. Comment ========= Results discussed w/patient. DATE [...] Sufficient. Impression 1st Trimester OB scan ,transvaginal +[id number] There is no visualized gestational sac either [...] The adnexa appear normal. Follow-up Per the OPERATION SPECIALIST service. Comment ========= Results discussed w/patient. DATE OF SERVICE: 06/20/2020 David Martínez MD IMG US OB ORDERAB LES * (ABNORMAL) QUANT BETA HCG, (06/19/2020 13:07 EST) Beta HCG Quant, 108(H) <5 mIU/ml 06/19/2020 14:38 EST [facility] Comment: NOTE: [...] Martínez MD CHEMISTRY & BLOOD GAS ORDERABLES [facility] [address] [place] [address] documented in this encounter Visit Diagnoses Diagnosis of unknown anatomic location- Primary state, incidental of unknown anatomic location state, incidental documented in this encounter
--- OUTSIDE RECORDS SUMMARY | 2024-01-02 06:16 | XMS_ITS | Encounter Summary ---
Author Organization [facility] Address [address] [place] [address] Care Team Providers Care Museum Tour Guide Name Role Phone Unavailable Primary Care Provider Unavailabl e Reason for Visit * Reason Onset Date Comments Other 06/26/2020 Encounter Details Date Type Department Care Team (Late st Contact Info) Description 06/26/2020 Telephone [facility] Women's Services [address] [address] Rosa Chang, MARCELO Other Social History Tobacco [...] now. Is aware of bleeding precautions. Has TUBE MAN on-call number as well. Will route to beta book team to please advise further/follow up. * Telephone Encounter - Rosa Salazar RN - 06/26/2020 0525 EST Non-identified VM, left general message: nurse calling from [facility] Women???s clinic, calling to check in as [...] take you to the ER.Please call the TUBE MAN nurses at [phone] when you receive this message. documented in this encounter Plan of Treatment Upcoming Encounters Date Type Department Care Team (Late st Contact Info) Description 02/21/2024 9:45 EDT Office Visit [facility] Adult Primary Care - [address] [phone] Carrington Calderon MD 1 [facility] Level 1 [place] [phone] 02/27/2024 8:30 EDT Telemedicine [facility] Sleep Program - [address] [place] [address] Dwight Colbert [address] [place] [address] 02/29/2024 10:30 EDT [facility] Radiology Nuclear Medicine and PET - [address] [address] 02/29/2024 14:30 EDT Appointment [facility] Radiology Nuclear Medicine and PET - [address] [phone] 03/01/2024 8:00 EDT Appointment [facility] Radiology Nuclear Medicine and PET - [address] 812851 03/01/2024 9:30 EDT Appointment [facility] Radiology Nuclear Medicine and PET - [address] [address] documented as of this encounter Visit Diagnoses Not on filedocumented in this encounter
--- OUTSIDE RECORDS SUMMARY | 2024-01-02 06:16 | XMS_ITS | Encounter Summary ---
Author Organization [facility] Address [address] [place] [address] Care Team Providers Care Nursing Education Consultant Name Role Phone Unavailable Primary Care Provider Unavailabl e Reason for Visit * Reason Comments Problem Encounter Details Date Type Department Care Team (Late st Contact Info) Description 06/25/2020 9:00 EST Office Visit [facility] Women's Services - [address] [phone] Ana Coronado MD [address] [place] [address], Level [address] [place] [address] Unwanted fertility (Primary Dx) Social [...] told years ago ??? Depression ??? Diabetes ([facility]) A1c 10.3 on 11/28/2019 - poorly controlled ??? Difficulty opening mouth 06/13/2020 pain with opening mouth wide ??? Does not exercise 06/13/2020 due to infected toe ??? History of general anesthesia ??? Hx of ectopic 06/20/2020 ??? Irritable bowel syndrome 06/13/2020 ? ? Nausea & vomiting occasionally ??? Obesity, unspecified ??? Osteomyelitis ([facility]) of left great toe ??? Peripheral [...] 8. View: Sufficient. Impression OB Transvaginal - 43226. 1. of unknown location with findings that [...] I spoke with Dr. Mims, the benign process checker chief resident, and I will place a [...] 02/21/2024 9:45 EDT Office Visit [facility] Adult Primary Care - [address] [phone] Carrington Calderon MD [address] [phone] 02/27/2024 8:30 EDT Telemedicine [facility] Sleep Program - [address] [address] Dwight Colbert [address] [place] [phone] 02/29/2024 10:30 EDT [facility] and PET - [address] [phone] 02/29/2024 14:30 EDT Appointment [facility] Radiology Nuclear Medicine and PET [address] 152091 03/01/2024 8:00 EDT Appointment [facility] Radiology Nuclear Medicine and [address] [address] 03/01/2024 9:30 EDT Appointment [facility] Radiology Nuclear Medicine and PET - [address] [address] documented as of this encounter Visit Diagnoses [...]
--- OUTSIDE RECORDS SUMMARY | 2024-01-02 06:17 | XMS_ITS | Encounter Summary ---
Author Organization [facility] Address [address] [place] [address] Care Team Providers Care Content Analyst Name Role Phone Unavailable Primary Care [...] [facility] Adult Primary Care - [address] [phone] Carrington Calderon MD [address] [phone] 02/27/2024 8:30 EDT Telemedicine [facility] Sleep Program - [address] [address] Dwight Colbert [address] [place] [phone] 02/29/2024 10:[address] [facility] Radiology Nuclear Medicine and PET - [address] [address] 02/29/2024 14:[address] [facility] Radiology Nuclear Medicine and PET - [address] [id number] 03/01/2024 8:[address] [facility] Radiology Nuclear Medicine and PET - [address] [phone] 03/01/2024 9:30 EDT Appointment [facility] Radiology Nuclear Medicine and PET - [address] [address] documented as of this encounter Visit Diagnoses Not on filedocumented in this encounter
--- OUTSIDE RECORDS SUMMARY | 2024-01-02 06:17 | XMS_ITS | Encounter Summary ---
Author Organization [facility] Address [address] [place] [address] Care Team Providers Care Hvac/R Instructor Name Role Phone Unavailable Primary Care Provider Unavailabl e Reason for Visit * Reason Onset Date Comments Follow-up 05/05/2020 Encounter Details Date Type Department Care Team (Late st Contact Info) Description 05/05/2020 Telephone [facility] Infectious Disease - [address] [phone] Mushtaq Light, DO 111 [facility], Level 5 [place] [address] Follow-up Social History Tobacco Use [...] childcare. She is currently back home in [place] is clinically stable. Unfortunately her MRI showed osteomyelitis by report of the great toe. I called in a prescription for Augmentin 875 p.o. twice daily to her pharmacy in [place] and she will pick it up later [...] Visit [facility] Adult Primary Care - [address] 800991 Carrington Calderon MD [address] [phone] 02/27/2024 8:30 EDT Telemedicine [facility] Sleep Program - [address] [phone] Dwight Colbert [address] [place] [address] [phone] 02/29/2024 10:30 EDT Appointment [facility] Radiology Nuclear Medicine and PET - [address] [phone] 02/29/2024 14:30 EDT Appointment [facility] Radiology Nuclear Medicine and PET [address] [phone] 03/01/2024 8:00 EDT Appointment [facility] Radiology Nuclear Medicine and PET - [address] [phone] 03/01/2024 9:30 EDT Appointment [facility] Radiology Nuclear Medicine and PET [address] [phone] documented as of this encounter Visit Diagnoses Not on filedocumented in this encounter
--- OUTSIDE RECORDS SUMMARY | 2024-01-02 06:17 | XMS_ITS | Encounter Summary ---
Author Organization [facility] Address [address] [place] [address] Care Team Providers Care Rodeo Rider Name Role Phone Unavailable Primary Care Provider Unavailabl e Reason for Visit * Reason Comments Follow-up Encounter Details Date Type Department Care Team (Late st Contact Info) Description 04/16/2020 9:30 EST Telemedicine [facility] Infectious Disease - [address] [phone] Mushtaq Light, DO 111 [facility], Level 5 [place] [address] Osteomyelitis of great toe of [...] For patients, please refer to guidance in [facility] [place] on how to locate information. Generally this information will appear as a scanned documents saved in My Documents activity. documented in this encounter Plan of Treatment Upcoming Encounters Date Type Department Care Team (Late st Contact Info) Description 02/21/2024 9:45 EDT Office Visit [facility] Adult Primary Care - [address] [phone] Carrington Calderon MD 1 [facility] 1 [place] [phone] 02/27/2024 8:30 EDT Telemedicine [facility] Sleep Program - [address] [place] [address] Colbert Dwight [address] [place] [address] 02/29/2024 10:30 EDT [facility] Radiology Nuclear Medicine and PET - [address] [phone] 02/29/2024 14:30 EDT [facility] Rad[facility] and PET - [address] [id number] 03/01/2024 8:00 EDT Appointment [facility] Radiology Nuclear Medicine and PET - [address] [phone] 03/01/2024 9:30 EDT Appointment [facility] Radiology Nuclear Medicine and PET - [address] [id number] documented as of this encounter Visit Diagnoses Diagnosis Osteomyelitis of great toe of left foot (HCC-CMS)- Primary documented in this encounter
--- OUTSIDE RECORDS SUMMARY | 2024-01-02 06:17 | XMS_ITS | Encounter Summary ---
Author Organization [facility] Address [address] [place] [address] Care Team Providers Care Senior Engineering Manager Name Role Phone Unavailable Primary Care Provider Unavailabl e Reason for Visit * Reason Comments Foot Problem Encounter Details Date Type Department Care Team (Latest Contact Info) Description 06/05/2020 10:30 EST Office Visit [facility] Foot & Ankle Program - [address] [place] [address] Elza Navarro DPM [address] [place] [phone] Osteomyelitis of toe of left foot ([facility]) (Primary Dx); Type 2 diabetes mellitus with diabetic polyneuropathy, with long-term current use of insulin ([facility]) Social History Tobacco Use Types Packs/Day [...] diabetes mellitus with left diabetic foot ulcer ([facility]) 05/03/2020 Priority: Medium ??? Osteomyelitis of great toe of left foot ([facility]) 03/12/2020 Priority: Medium ??? Diabetic foot ulcer associated with diabetes mellitus due to underlying condition ([facility]) 03/07/2020 Priority: Medium ??? Diabetic foot infection ([facility]) 03/06/2020 Priority: Medium ??? Diabetic foot ulcer ([facility]) 03/06/2020 Priority: Medium ??? Cellulitis of great toe of left foot 11/26/2019 Priority: Medium ??? Chronic midline low back pain without sciatica 11/26/2019 Priority: Medium ??? Chronic left ear pain 09/04/2015 Priority: Medium ??? Encounter for sterilization 11/20/2019 ??? Family history of rheumatoid arthritis 09/04/2015 ??? Type 2 diabetes mellitus ([facility]) 09/03/2015 ??? Anxiety and depression 05/12/2010 ??? Migraine with aura and without status migrainosus, not intractable Past Medical History: Diagnosis Date ??? Anxiety ??? Arthritis 12/05/19- Spine- told years ago ??? Diabetes ([facility]) A1c 10.3 on 11/28/2019 ??? History [...] 1. Osteomyelitis of toe of left foot ([facility]) CASE REQUEST OPERATING ROOM 2. Type 2 diabetes mellitus with diabetic polyneuropathy, with long-term current use of insulin ([facility]) CASE REQUEST OPERATING ROOM No orders [...] with speech recognition software or keyboard data center manager techniques. Minor irregularities or keyboarding misprints may be present documented in this encounter Plan of Treatment Upcoming Encounters Date Type Department Care Team (Late st Contact Info) Description 02/21/2024 9:45 EDT Office Visit [facility] Adult Primary Care - [address] 160421 Carrington Calderon MD [address] [phone] 02/27/2024 8:30 EDT Telemedicine [facility] Sleep Program - [address] [phone] Dwight Colbert [address] [place] [address] [phone] 02/29/2024 10:30 EDT Appointment [facility] Radiology Nuclear Medicine and PET - [address] [phone] 02/29/2024 14:30 EDT [facility]ment [facility] Rad[facility] Nuclear Medicine and PET - [address] [id number] 03/01/2024 8:00 EDT Appointment [facility] Radiology Nuclear Medicine and PET - [address] [phone] 03/01/2024 9:30 EDT Appointment [facility] Radiology Nuclear Medicine and PET - [address] [phone] documented as of this encounter Visit Diagnoses Diagnosis Osteomyelitis of toe of left foot ([facility])- Primary Unspecified osteomyelitis, ankle and foot Type 2 diabetes mellitus with diabetic polyneuropathy, with long-term current use of insulin ([facility]) documented in this encounter Orders Case Request Count Last Ordered Date First Orde red Date CASE REQUEST OPERATING ROOM 1 06/05/2020 documented in this encounter
--- OUTSIDE RECORDS SUMMARY | 2024-01-02 06:17 | XMS_ITS | Encounter Summary ---
Author Organization [facility] Address [address] [place] [address] Care Team Providers Care Cook Helper Preserves Name Role Phone Unavailable Primary Care Provider Unavailabl e Reason for Visit * Reason Onset Date Comments Home Health 04/01/2020 Telemedicine Video Visit 04/01/2020 Encounter Details Date Type Department Care Team (Late st Contact Info) Description 04/01/2020 Telephone [facility] Adult Primary Care [address] [phone] Tonja Alejandro PA-C [address] [place] [address] [place] [phone] Home Health; Telemedicine Video Visit Social [...] Zoom appt ID: [id number] pw: [id number] * Telephone Encounter - Jesi Lua RN [...] 04/01/2020 1635 EDT Kylah is calling from [facility] to state patient [...] / [facility] Adult Primary Care - [address] 985991 Carrington Calderon MD 1 [facility] Level 1 [place] [phone] 02/27/2024 8:30 EDT Telemedicine [facility] Sleep Program - [address] [place] [address] Dwight Colbert [address] [place] [address] 02/29/2024 10:30 EDT [facility]ment [facility] Radiology Nuclear Medicine and PET - [address] [address] 02/29/2024 14:30 EDT [facility] and PET - [address] [id number] 03/01/2024 8:00 EDT Appointment [facility] Radiology Nuclear Medicine and PET - [address] [phone] 03/01/2024 9:30 EDT Appointment [facility] Radiology Nuclear Medicine and PET - [address] [phone] documented as of this encounter Visit Diagnoses Not on filedocumented in this encounter
--- OUTSIDE RECORDS SUMMARY | 2024-01-02 06:17 | XMS_ITS | Encounter Summary ---
Author Organization [facility] Address [address] [place] [address] Care Team Providers Care Project Finance Analyst Name Role Phone Unavailable Primary Care Provider Unavailabl e Reason for Visit * Reason Onset Date Comments Labs Only 06/05/2020 covid pre op scr eening Encounter Details Date Type Department Care Team (Late st Contact Info) Description 06/05/2020 Orders Only [facility] Foot & Ankle Program - [address] [address] Elza Navarro DPM [address] [place] [address] Osteomyelitis of left foot, unspecified type ([facility]) (Primary Dx) Social History Tobacco Use [...] [facility] Adult Primary Care - [address] [phone] Carrington Calderon MD 1 [facility] 1 [place] [phone] 02/27/2024 8:30 EDT Telemedicine [facility] Sleep Program - [address] [address] Dwight Colbert [address] [place] [address] [phone] 02/29/2024 10:[address] [facility] Radiology Nuclear Medicine and PET [address] [phone] 02/29/2024 14:[address] [facility] Radiology Nuclear Medicine and PET [address] [phone] 03/01/2024 8:[address] [facility] Radiology Nuclear Medicine and PET [address] [phone] 03/01/2024 9:[address] [facility] Radiology Nuclear Medicine and PET [address] [phone] documented as of this encounter Results * COVID-19 TESTING (06/09/2020 9:28 EST) COVID-19 rt-PCR Result Negative Negative 06/09/2020 16:34 [facility] Comment: This test [...] history, and epidemiological information. Performed on the 91JinRong instrument Performing Lab [place] [facility] 06/09/2020 16:34 [facility] Swab ENTIRE NASOPHARYNX / Unknown Swab / Unknown 06/09/2020 9:28 EST 06/09/2020 9:28 EST Elza Navarro DPM MICROBIOLOGY - GENER AL ORDERABLES [facility] [address] [place] [address] documented in this encounter Visit Diagnoses Diagnosis Osteomyelitis of left foot, unspecified type ([facility])- Primary documented in this encounter
--- OUTSIDE RECORDS SUMMARY | 2024-01-02 06:17 | XMS_ITS | Encounter Summary ---
Author Organization [facility] Address [address] [place] [address] Care Team Providers Care Reimbursement Analyst Name Role Phone Unavailable Primary Care Provider Unavailabl e Reason for Visit * Reason Onset Date Comments Appointment Related 06/12/2020 Encounter Details Date Type Department Care Team (Late st Contact Info) Description 06/12/2020 Telephone [facility] Endocrinology - [address] [facility] [address] [place] [address] Appointment Related Social History Tobacco [...] Visit [facility] Adult Primary Care - [address] 477661 Carrington Calderon MD 1 [facility] Level 1 [place] [phone] 02/27/2024 8:30 EDT Telemedicine [facility] Sleep Program - [address] [place] [address] Dwight Colbert [address] [place] [address] 02/29/2024 10:30 EDT [facility]ment [facility] Radiology Nuclear Medicine and PET - [address] [address] 02/29/2024 14:30 EDT [facility]ointment [facility] Radiology Nuclear Medicine and PET - [address] [address] 03/01/2024 8:00 EDT Appointment [facility] Radiology Nuclear Medicine and PET - [address] [phone] 03/01/2024 9:30 EDT Appointment [facility] Radiology Nuclear Medicine and PET - [address] [phone] documented as of this encounter Visit Diagnoses Not on filedocumented in this encounter
--- OUTSIDE RECORDS SUMMARY | 2024-01-02 06:17 | XMS_ITS | Encounter Summary ---
Author Organization [facility] Address [address] [place] [address] Care Team Providers Care Revival Clerk Name Role Phone Unavailable Primary Care Provider Unavailabl e Reason for Visit * Reason Comments Pre-op Exam toe Encounter Details Date Type Department Care Team (Latest Contact Info) Description 06/13/2020 15:30 EST Office Visit [facility] Adult Primary Care - [address] [address] Teodoro Alejandro PA-C [address] [place] [address] [address] [place] [address] Osteomyelitis of great toe of [...] last A1c was 9.1. According to her associate chemist, patient is instructed to take 32 units [...] told years ago ??? Depression ??? Diabetes ([facility]) A1c 10.3 on 11/28/2019 - poorly controlled [...] 27 mL 3 ??? 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 History of CAD (history of NM or a positive ETT, current ischemic chest [...] [facility] - [address] [phone] Carrington Calderon MD [address] [address] 02/27/2024 8:30 EDT Telemedicine [facility] Sleep Program - [address] 439021 Dwight Colbert [address] [place] [address] [phone] 02/29/2024 10:30 EDT Appointment [facility] Radiology Nuclear Medicine and PET - [address] [phone] 02/29/2024 14:30 EDT Appointment [facility] Radiology Nuclear Medicine and PET - [address] [phone] 03/01/2024 8:00 EDT Appointment [facility] Radiology Nuclear Medicine and PET - [address] [phone] 03/01/2024 9:30 EDT Appointment [facility] Radiology Nuclear Medicine and PET - [address] [phone] documented as of this encounter Procedures Procedure Name Priority Date/Time Associated Diagnosis Comments ECG REPORT - SCANNED 06/13/2020 15:53 EST EKG 12-LEAD Routine 06/13/2020 15:41 EST Pre-op examination Osteomyelitis of great toe of left foot (HCC-CMS) documented in this encounter Results * ECG REPORT - SCANNED (06/13/2020 15:53 EST) 06/13/2020 15:5 3 EST Scan 2 Transferrer PROCEDURE/MINOR BRAULIO GICAL ORDERABLES * EKG 12-LEAD (06/13/2020 15:41 EST) 06/13/2020 15:4 1 EST Narrative [facility] EKG - 06/13/2020 15:48 EST ? PC Site ? Test Date: ?2020-06-13 Pat Name: ? CRISTY LUO ?Department: ?? [facility] ? Room: ? Gender: ? Female ? Director Of Quantitative Research: ?? [id number] : ?1985 ? Requested By: HUBERT Forman Order Number: [id number] ? Reading : ?? TEODORO ALEJANDRO PA-C ? Measurements Intervals ?Center Line ? Rate: ? 94 ? P: ?59 CA: ? 156 ?QRS: ?34 QRSD: ? 89 [...] Date: 2020-06-13 Pat Name: CRISTY LUO Department: [facility] Room: Gender: Female Director Of Quantitative Research: [id number] : 1985 Requested By: HUBERT Forman Order Number: [id number] Reading MD: TEODORO ALEJANDRO PA-C Measurements Intervals Center Line Rate: 94 P: 59 CA: 156 QRS: 34 QRSD: 89 T: 13 QT: 335 QTc: 420 Interpretive Statements SINUS RHYTHM Automated Interpretation. Provider Interpretation to follow. Compared to ECG 06/18/2019 08:28:09 No significant changes I reviewed the tracing and have either agreed or edited the findings inthis report. Electronically Signed On 06-13-2020 15:48:18 EST by TEODORO SPENCE Teodoro Alejandro PA-C CARDIAC ECG ORDERABLES [facility] EKG documented in this encounter Visit Diagnoses Diagnosis Osteomyelitis of great toe of left foot (HCC-CMS)- Primary Pre-op examination Preoperative examination, unspecified documented in this encounter
--- OUTSIDE RECORDS SUMMARY | 2024-01-02 06:17 | XMS_ITS | Encounter Summary ---
Author Organization [facility] Address [address] [place] [address] Care Team Providers Care Medicare Insurance Specialist Name Role Phone Unavailable Primary Care Provider Unavailabl e Reason for Visit * Reason Comments Foot Problem Encounter Details Date Type Department Care Team (Late st Contact Info) Description 05/06/2020 10:30 EST Office Visit [facility] Foot & Ankle Program - [address] [place] [address] Elza Navarro DPM [address] [place] [address] Ulcer of great toe, left, with necrosis of bone ([facility]) (Primary Dx); Type 2 diabetes mellitus with diabetic polyneuropathy, with long-term current use of insulin ([facility]) Social History Tobacco Use Types [...] the great toe. She had to leave [place] due to childcare issues at home. She [...] diabetes mellitus with left diabetic foot ulcer ([facility]) 05/03/2020 Priority: Medium ??? Osteomyelitis of great toe of left foot ([facility]) 03/12/2020 Priority: Medium ??? Diabetic foot ulcer associated with diabetes mellitus due to underlying condition ([facility]) 03/07/2020 Priority: Medium ??? Diabetic foot infection ([facility]) 03/06/2020 Priority: Medium ??? Diabetic foot ulcer ([facility]) 03/06/2020 Priority: Medium ??? Cellulitis of great toe of left foot 11/26/2019 Priority: Medium ??? Chronic midline low back pain without sciatica 11/26/2019 Priority: Medium ??? Chronic left ear pain 09/04/2015 Priority: Medium ??? Encounter for sterilization 11/20/2019 ??? Family history of rheumatoid arthritis 09/04/2015 ??? Type 2 diabetes mellitus ([facility]) 09/03/2015 ??? Anxiety and depression 05/12/2010 ??? Migraine with aura and without status migrainosus, not intractable Past Medical History: Diagnosis Date ??? Anxiety ??? Arthritis 12/05/19- Spine- told years ago ??? Diabetes ([facility]) A1c 10.3 on 11/28/2019 ??? [...] great toe, left, with necrosis of bone ([facility]) 2. Type 2 diabetes mellitus with diabetic polyneuropathy, with long-term current use of insulin ([facility]) No orders of the defined types [...] prepared with speech recognition software or keyboard database modeler techniques. Minor irregularities or keyboarding misprints may be present documented in this encounter Plan of Treatment Upcoming Encounters Date Type Department Care Team (Late st Contact Info) Description 02/21/2024 9:45 EDT Office Visit [facility] Adult Primary Care - [address] 152621 Carrington Calderon MD [address] [place] [phone] 02/27/2024 8:30 EDT Telemedicine [facility] Sleep Program - [address] [phone] Dwight Colbert [address] [place] [address] [phone] 02/29/2024 10:30 EDT [facility]ointment [facility] Rad[facility] Nuclear Medicine and PET - [address] [address] 02/29/2024 14:30 EDT Appointment [facility] Radiology Nuclear Medicine and PET - [address] [address] 03/01/2024 8:00 EDT Appointment [facility] Radiology Nuclear Medicine and PET [address] [address] 03/01/2024 9:30 EDT Appointment [facility] Radiology Nuclear Medicine and PET - [address] [address] documented as of this encounter Visit Diagnoses Diagnosis Ulcer of great toe, left, with necrosis of bone ([facility])- Primary Type 2 diabetes mellitus with diabetic polyneuropathy, with long-term current use of insulin ([facility]) documented in this encounter Discontinued [...]
--- OUTSIDE RECORDS SUMMARY | 2024-01-02 06:17 | XMS_ITS | Encounter Summary ---
Author Organization [facility] Address [address] [place] [address] Care Team Providers Care Retail Field Representative Name Role Phone Unavailable Primary Care Provider Unavailabl e Reason for Visit * Reason Comments Follow-up Encounter Details Date Type Department Care Team (Latest Contact Info) Description 04/07/2020 10:00 EST Office Visit [facility] [place] [address] Nurse, Id, RN Osteomyelitis of great toe [...] Visit [facility] Adult Primary Care - [address] [phone] Carrington Calderon MD 1 [facility] 1 [place] [address] 02/27/2024 8:30 EDT Telemedicine [facility] Sleep Program - [address] [place] [address] [address] [place] [address] 02/29/2024 10:30 EDT [facility] Radiology Nuclear Medicine and PET - [address] [phone] 02/29/2024 14:30 EDT Appointment [facility] Radiology Nuclear Medicine and PET - [address] 000031 03/01/2024 8:00 EDT Appointment [facility] Radiology Nuclear Medicine and PET - [address] [phone] 03/01/2024 9:30 EDT Appointment [facility] Radiology Nuclear Medicine and PET - [address] [phone] documented as of this encounter Visit Diagnoses Diagnosis Osteomyelitis of great toe of left foot (HCC-CMS)- Primary documented in this encounter
--- OUTSIDE RECORDS SUMMARY | 2024-01-02 06:17 | XMS_ITS | Encounter Summary ---
Author Organization [facility] Address [address] [place] [address] Care Team Providers Care Rn Social Work Name Role Phone Unavailable Primary Care Provider [...] [facility] Adult Primary Care - [address] [phone] Carrington Calderon MD [address] [phone] 02/27/2024 8:30 EDT Telemedicine [facility] Sleep Program - [address] 645401 Dwight Colbert [address] [place] [address] [phone] 02/29/2024 10:30 EDT Appointment [facility] Radiology Nuclear Medicine and PET - [address] [phone] 02/29/2024 14:30 EDT Appointment [facility] Radiology Nuclear Medicine and PET - [address] [phone] 03/01/2024 8:00 EDT Appointment [facility] Radiology Nuclear Medicine and PET - [address] [address] 03/01/2024 9:30 EDT Appointment [facility] Radiology Nuclear Medicine and PET - [address] [phone] documented as of this encounter Visit Diagnoses Not on filedocumented in this encounter
--- OUTSIDE RECORDS SUMMARY | 2024-01-02 06:17 | XMS_ITS | Encounter Summary ---
Author Organization [facility] Address [address] [place] [address] Care Team Providers Care Area Development Consultant Name Role Phone Unavailable Primary Care Provider Unavailabl e Reason for Visit * Reason Comments Diabetes Encounter Details Date Type Department Care Team (Latest Contact Info) Description 04/14/2020 13:30 EST Telemedicine [facility] Adult Primary Care - [address] [phone] Tonja Alejandro PA-C [address] [place] [address] [place] [phone] Polyneuropathy associated with underlying disease (HCC-CMS) [...] For patients, please refer to guidance in [employer] on how to locate information. Generally this information will appear as a scanned documents saved in My Documents activity. * Tonja Alejandro PA-C - 04/14/2020 1330 EST [facility] ADULT PRIMARY CARE [place] PROGRESS / FOLLOWUP NOTE - 04/14/2020 CONSENT: [...] Tonja Alejandro PA-C / DB Dictation ID: [id number] cc: documented in this encounter Plan of Treatment Upcoming Encounters Date Type Department Care Team (Late st Contact Info) Description 02/21/2024 9:45 EDT Office Visit [facility] Adult Primary Care - [address] [phone] Carrington Calderon MD [address] [place] [address] 1 [place] [phone] 02/27/2024 8:30 EDT Telemedicine [facility] Sleep Program - [address] [phone] Dwight Colbert [address] [place] [phone] 02/29/2024 10:30 EDT Appointment [facility] Radiology Nuclear Medicine and PET - [address] [phone] 02/29/2024 14:30 EDT Appointment [facility] Radiology Nuclear Medicine and PET - [address] [id number] 03/01/2024 8:00 EDT Appointment [facility] Radiology Nuclear Medicine and PET - [address] [address] 03/01/2024 9:30 EDT Appointment [facility] Radiology Nuclear Medicine and PET - [address] [phone] documented as of this encounter Visit Diagnoses Diagnosis Polyneuropathy associated with underlying disease ([facility])- Primary Osteomyelitis of great toe of left foot ([facility]) 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 ([facility]) Type II or unspecified type diabetes mellitus with other specified manifestations, not stated as uncontrolled documented in this encounter
--- OUTSIDE RECORDS SUMMARY | 2024-01-02 06:17 | XMS_ITS | Encounter Summary ---
Author Organization [facility] Address [address] [place] [address] Care Team Providers Care Machinist Outside Name Role Phone Unavailable Primary Care Provider Unavailabl e Reason for Visit * Reason Comments Toe Injury diabetic foot ulcer on right great toe. admitted in march for IV abx x1week and then d/c with PO abx [id number]. last night noticed swelling, increased pain, redness and drainage from ulcer. dressed prior to arrival. 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 ([facility]) Referral ID Status Reason Start Date Expiration Date Visits Re quested Visits Authorized [id number] 1 1 Encounter Details Date Type Department Care Team (Late st Contact Info) Description 05/03/2020 21:20 EST - 05/04/2020 20:27 [facility] Hospital Encounter [facility] [address] [phone] Fran Barbosa MD 111 [facility], Level [address] [place] [phone] Lalito You MD MPH [address] [phone] Obi Hancock MD [address] [phone] Diabetic foot infection (HCC-CMS) (Primary Dx); Type [...] Diagnosis: Sepsis secondary to diabetic foot infection ([facility]) with osteomyelitis Additional Problems Managed in the Hospital Active Hospital Problems Diagnosis Date Noted ??? *Diabetic foot infection ([facility]) 03/06/2020 ??? 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 ([facility]) 05/03/2020 Resolved Hospital Problems No resolved problems [...] lantus (22 units at bedtime) - Continue [employer]IAL MEDIA MANAGER gabapentin 100mg TID Hospital Course: Mrs. Cristy Luo??is a 35 year old??female??with a past medical history notable for insulin-dependent T2DM (c/b peripheral neuropathy and diabetic foot ulcer), recurrent migraine, TERI/MDD admitted 05/03/20 for worsening left foot pain, suspicious for recurrent diabetic foot infection. Of note, patient was recent admitted to [facility] for management of left great toe osteomyelitis between 03/06/20 to 03/12/20. During that time, she was started on cefazolin IV and metronidazole for six weeks. She completed her antibiotic course outpatient on 04/20/20. She complained of no symptoms during that time. On the night of 05/02/20, she noted worsening left foot pain and swelling after spending the day decorating her home for [employer]. She subsequently went to the [facility] ED for further evaluation. On admission, she [...] Component Value Units Date/Time Bacterial Culture, Blood [[id number]] Collected: 05/04/2040 Lab Status: In process Specimen: Blood, Venous Updated: 05/04/20 0733 Bacterial Culture, Blood [[id number]] Collected: 05/04/2047 Lab Status: In process Specimen: Blood, Venous Updated: 05/04/20 0733 Hemoglobin A1c [[id number]] Collected: 05/03/208 Lab Status: In process Specimen: Blood, Venous Updated: 05/04/20 0043 Upcoming Appointments May 14, 2020 14:30 Office Visit with Elza Navarro DPM [facility] - Paul (--) [facility] [address] Follow-up appointments and procedures Amb Consult/Follow Up [...] spending the day decorating her home for [employer]. On further ROS, she denied F/C/S, N/V/D, [...] lantus (22 units at bedtime) - Continue [employer] SOCIAL MEDIA MANAGER gabapentin 100mg TID # Chronic Migraine - [...] Notes * Sara Banks MD - 05/03/2020 7462 EST Medicine Admission History & Physical Service [...] 12/05/19- Spine- told years ago ??? Diabetes ([facility]) A1c 10.3 on 11/28/2019 ??? History [...] for now: 22U Lantus at bedtime. - [employer] SOC[employer] MEDIA MANAGER gabapentin 100mg TID (just started this 3 [...] documented in this encounter Consult Notes * [place], Mushtaq J, DO - 05/04/2020 1059 EST [...] 03 May HISTORY OF PRESENT ILLNESS: Ms. Lou is a 35 y.o. woman with past [...] weeks of cefazolin 2gm q8h and PO [id number] q8h, with dressing changes and short-interval podiatry [...] 12/05/19- Spine- told years ago ??? Diabetes ([facility]) A1c 10.3 on 11/28/2019 ??? 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 [...] x1week and then d/c with PO abx [id number]. last night noticed swelling, increased pain, redness [...] afterwards. She is followed by Dr. Navarro, security supervisor. Last night, patient noticed swelling, increased 9/10 [...] limited to diabetic foot infection and osteomyelitis. ([id number]) Paged Orthopedic resident. The patient had a [...] Lalito You. Final diagnoses: Diabetic foot infection ([facility]) MDM MDM Number of Diagnoses or Management Options Diabetic foot infection ([facility]) Diagnosis management comments: 5 Amount and/or Complexity [...] 05/04/20202010 EST Data: Pt left AMA d/t child psychiatrist issues. Action: notified and spoke to the pt. Response: Pt signed AMA paperwork, left the unit at 2009. LIZZ RUIZ RN 05/04/2020 20:12 * Plan of Care - Jonelle Sun RN - 05/04/2020 1410 EST Problem: Daily Care Plan Goals Goal: Care Plan Documentation Flowsheets (Taken 05/04/2020 0498) Area of Focus: Discharge Plan Goal This [...] Education provided and verbalized back to this public relations writer by pt, expressing understanding of teaching. [...] [facility] - [address] [phone] Carrington Calderon MD [address] [phone] 02/27/2024 8:30 EDT Telemedicine [facility] Sleep Program - [address] [phone] Dwight Colbert [address] [place] [phone] 02/29/2024 10:30 EDT Appointment [facility] Radiology Nuclear Medicine and PET [address] [phone] 02/29/2024 14:30 EDT Appointment [facility] Radiology Nuclear Medicine and PET [address] [phone] 03/01/2024 8:00 EDT Appointment [facility] Radiology Nuclear Medicine and [address] [phone] 03/01/2024 9:30 EDT Appointment [facility] Radiology Nuclear Medicine and [address] [address] documented as of this encounter Procedures Procedure [...] 03/19/2020, there has been interval increase in [id number] in the first proximal phalanx. There is [...] Growth at 5 days 05/09/2020 7:45 EST [facility] Blood VENOUS BLOOD / Unknown Blood Culture / Unknown 05/04/2020 5:47 EST 05/04/2020 7:33 EST Sara Banks MD MICROBIOLOGY - GENER AL ORDERABLES [facility] [address] [place] [address] * (ABNORMAL) BACTERIAL CULTURE, BLOOD (05/04/2020 5:40 EST) Organism ID Corynebacterium species(AA) 05/06/2020 14:29 [facility] Comment:Detected in the aero bic bottle at 37 hours Blood VENOUS BLOOD / Unknown Blood Culture / Unknown 05/04/2020 5:40 EST 05/04/2020 7:33 EST Sara Banks MD MICROBIOLOGY - GENER AL ORDERABLES Performing Organization Address City/State/[facility] Co de Phone Number [facility] [address] [place] [phone] * (ABNORMAL) COMPLETE BLOOD COUNT (05/04/2020 5:32 EST) WBC 13.43(H) 4.00 - 12.40 K/cmm 05/04/2020 6:24 [facility] RBC 4.27 3.86 - 5.04 M/cmm 05/04/2020 6:24 [facility] Hemoglobin 13.1 11.6 - 15.2 gm/dL 05/04/2020 6:24 [facility] HCT 38.3 34.9 - 44.4 % 05/04/2020 6:24 [facility] MCV 90 81 - 98 fl 05/04/2020 6:24 [facility] MCH 30.7 26.7 - 33.3 pg 05/04/2020 6:24 [facility] MCHC 34.2 32.1 - 35.9 gm/dL 05/04/2020 6:24 [facility] RDW-CV 12.4 <14.7 % 05/04/2020 6:24 [facility] RDW-SD 40.6 <50.4 fl 05/04/2020 6:24 [facility] PLT 335 141 - 377 K/cmm 05/04/2020 6:24 [facility] MPV 10.0 9.5 - 12.7 fl 05/04/2020 6:24 [facility] Blood VENOUS BLOOD / Unknown Venipuncture / Unknown 05/04/2020 5:32 EST 05/04/2020 6:11 EST Lalito You MD MPH HEMATOLOGY & PF4 OR DERABLES Performing Organization Address [facility] de Phone Number [facility] [address] [place] [address] * (ABNORMAL) CREATININE (05/04/2020 5:32 EST) Creatinine 0.46(L) 0.52 - 1.04 mg/dL 05/04/2020 6:52 EST [facility] eGFR 129 >60 mL/min/1.7 3m2 05/04/2020 6:52 EST [facility] Comment:eGFR calculated gil curtis CKD-EPI equation for non- Americans. Multiply eGFR by 1.16 for patients. Blood VENOUS BLOOD / Unknown Venipuncture / Unknown 05/04/2020 5:32 EST 05/04/2020 6:22 EST Lalito You MD MPH CHEMISTRY & BLOOD G ORDERABLES Performing Organization Address [facility] Co de Phone Number [facility] [address] [place] [address] * BUN (05/04/2020 5:32 EST) BUN 17 10 - 26 mg/dL 05/04/2020 6:52 EST [facility] Blood VENOUS BLOOD / Unknown Venipuncture / Unknown 05/04/2020 5:32 EST 05/04/2020 6:22 EST Lalito You MD MPH CHEMISTRY & BLOOD G ORDERABLES Performing Organization Address [facility] de Phone Number [facility] [address] [place] [address] * ELECTROLYTES (05/04/2020 5:32 EST) Sodium 137 136 - 145 mEq/L 05/04/2020 6:52 EST [facility] Potassium 4.4 3.5 - 5.0 mEq/L 05/04/2020 6:52 EST [facility] Chloride 104 96 - 110 mEq/L 05/04/2020 6:52 EST [facility] CO2 Total 24 22 - 32 mEq/L 05/04/2020 6:52 EST [facility] Blood VENOUS BLOOD / Unknown Venipuncture / Unknown 05/04/2020 5:32 EST 05/04/2020 6:22 EST Lalito Yuo MD MPH CHEMISTRY & BLOOD G ORDERABLES Performing Organization Address [facility] Co de Phone Number [facility] [address] [place] [address] * COVID-19 TEST [facility] PCR (05/03/2020 23:59 EST) Swab ENTIRE NASOPHARYNX / Unknown Swab / Unknown 05/03/2020 23:59 EST 05/04/2020 0:01 EST Fran Barbosa MD MICROBIOLOGY - GENERAL ORDERABLES Performing Organization Address [facility] Co de Phone Number [facility] [address] [place] [address] * COVID-19 TESTING (05/03/2020 23:59 EST) COVID-19 rt-PCR Result Negative Negative 05/04/2020 9:49 [facility] Comment: This test [...] history, and epidemiological information. Performed on the [employer]Data Fusion instrument Performing Lab [place] [facility] Lab 05/04/2020 9:49 EST [facility] Swab ENTIRE NASOPHARYNX / Unknown Swab / Unknown 05/03/2020 23:59 EST 05/04/2020 0:01 EST Fran Barbosa MD MICROBIOLOGY - GENERAL ORDERABLES [facility] [address] [place] [address] * XR FOOT LEFT 3 OR MORE [...] A1c 9.1(H) <5.7 % 05/05/2020 8:32 EST [facility] [...] Avg Glucose 214 mg/dL 0 8:32 EST [facility] Comment:The eAG represents t he A1c result expressed as average glucose in mg/dL. Blood VENOUS BLOOD / Unknown Venipuncture / Unknown 05/03/2020 21:38 EST 05/03/2020 21:55 EST Sara Banks MD CHEMISTRY & BLOOD GA S ORDERABLES [facility] [address] [place] [address] * (ABNORMAL) SED. RATE:WESTERGREN (05/03/2020 21:38 EST) Sed Rate 36(H) 0 - 20 mm/hr 05/03/2020 22:09 EST [facility] Blood VENOUS BLOOD / Unknown Venipuncture / Unknown 05/03/2020 21:38 EST 05/03/2020 21:55 EST Fran Barbosa MD HEMATOLOGY & PF4 ORDERABLES Performing Organization Address City/[facility]/ZIP Co de Phone Number [facility] [address] [place] [address] * (ABNORMAL) C REACTIVE PROTEIN (05/03/2020 21:38 EST) C-Reactive Protein 39.2(H) <10.0 mg/L 05/03/2020 22:19 [facility] Blood VENOUS BLOOD / Unknown Venipuncture / Unknown 05/03/2020 21:38 EST 05/03/2020 21:55 EST Fran Barbosa MD CHEMISTRY & B LOOD GAS ORDERABLES Performing Organization Address [facility] Co de Phone Number [facility] [address] [place] [address] * (ABNORMAL) COMPLETE BLOOD COUNT AND DIFFERENTIAL (05/03/2020 21:38 EST) WBC 16.98(H) 4.00 - 12.40 K/cmm 05/03/2020 22:03 [facility] RBC 4.38 3.86 - 5.04 M/cmm 05/03/2020 22:03 [facility] Hemoglobin 13.7 11.6 - 15.2 gm/dL 05/03/2020 22:03 [facility] HCT 38.9 34.9 - 44.4 % 05/03/2020 22:03 [facility] MCV 89 81 - 98 fl 05/03/2020 22:03 [facility] MCH 31.3 26.7 - 33.3 pg 05/03/2020 22:03 [facility] MCHC 35.2 32.1 - 35.9 gm/dL 05/03/2020 22:03 [facility] RDW-CV 12.5 <14.7 % 05/03/2020 22:03 [facility] RDW-SD 41.1 <50.4 fl 05/03/2020 22:03 [facility] PLT 365 141 - 377 K/cmm 05/03/2020 22:03 [facility] MPV 9.7 9.5 - 12.7 fl 05/03/2020 22:03 [facility] % Neutrophils 56.7 % 05/03/2020 22:03 [facility] % Lymphocytes 29.4 % 05/03/2020 22:03 [facility] % Monocytes 8.8 % 05/03/2020 22:03 [facility] % Eosinophils 4.4 % 05/03/2020 22:03 [facility] % Basophils 0.5 % 05/03/2020 22:03 [facility] % Immature Grans 0.2 % 05/03/20 20 22:03 [facility] Absolute Neutrophils 9.61(H) 2.20 - 8.85 K/cmm 05/03/2020 22:03 [facility] Absolute Lymphocytes 5.00(H) 1.09 - 3.30 K/cmm 05/03/2020 22:03 [facility] Absolute Monocytes 1.49(H) 0.10 - 0.80 K/cmm 05/03/2020 22:03 [facility] Absolute Eosinophils 0.75(H) 0.03 - 0.61 K/cmm 05/03/2020 22:03 [facility] ABS Basophils 0.09 0.01 - 0.11 K/cmm 05/03/2020 22:03 [facility] Absolute Immature Grans 0.04 0.00 - 0.06 K/cmm 05/03/2020 22:03 [facility] Type of Differential: Auto 05/03/2020 22:03 [facility] Blood VENOUS BLOOD / Unknown Venipuncture / Unknown 05/03/2020 21:38 EST 05/03/2020 21:55 EST Fran Barbosa MD PACKAGES & DN A PROBE ORDERABLES [facility] [address] [place] [address] documented in this encounter Visit Diagnoses Diagnosis Diabetic foot infection ([facility] Primary Type II or unspecified type diabetes mellitus with other specified manifestations, not stated as uncontrolled Diabetic foot infection ([facility]) Type II or unspecified type diabetes mellitus with other specified manifestations, not stated as uncontrolled 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 ([facility]) Type II or unspecified type diabetes mellitus with other specified manifestations, not stated as uncontrolled Sepsis without acute organ dysfunction, due to unspecified organism (HCC-CMS) 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 ([facility]) Type II or unspecified type diabetes mellitus [...] [phone] (Not Given - Provider: Konrad Dumont RN - Reason: Patient/family refused - Comment: [...] No, STAT 2306 (Given - Provider: Mar Aguirre RN) PRN Medication Order 05/02/2020 05/03/2020 05/04/2020 acetaminophen (TYLENOL) tablet 650 mg 650 mg, oral, EVERY 6 HOURS PRN, Starting on 05/04/20 at 0022, Until 05/04/20 at 2228, Pain, Fever, Routine 0117 (Given - Provid er: Lizz Ruiz RN - Comment: left foot)1213 (Given - Provider: Jonelle Sun, RN)1808 (Given - Provider: Konrad Dumont RN) dextrose 50 % solution 12.5 g [...] 2 mg 1 05/04/2020 polyethylene glycol 3350 (IN RALAX) packet 17 g 1 05/04/2020 Admission Count Last Ordered Date First Orde red Date ADMIT TO INPATIENT 1 05/03/2020 Transfer Count Last Ordered Date First Orde red Date TEACHING SERVICE 1 05/04/2020 ED BED REQUEST 1 05/03/2020 Discharge Count Last Ordered Date First Orde red Date DISCHARGE PATIENT 1 05/04/2020 documented in this encounter
--- OUTSIDE RECORDS SUMMARY | 2024-01-02 06:17 | XMS_ITS | Encounter Summary ---
Author Organization [facility] Address [address] [place] [address] Care Team Providers Care Interventional Sale Consultant Name Role Phone Carrington Calderon MD Primary Care Provi anders Abigail Díaz Unavailable Carmelo Hendrickson Unavailable Unavailable Encounter Details Date Type Department Care Team (Late st Contact Info) Description 06/19/2020 Lab Requisition [facility] Pathology & Laboratory Medicine - [address] [address] Mushtaq Light, DO 111 [facility], Level [address] [place] [address] Other acute osteomyelitis, left ankle [...] [facility] Adult Primary Care - [address] [phone] Carrington Calderon MD [address] [phone] 02/27/2024 8:30 EDT Telemedicine [facility] Sleep Program - [address] [phone] Dwight Colbert [address] [place] [address] 02/29/2024 10:30 EDT Appointment [facility] Radiology Nuclear Medicine and PET - [address] [address] 02/29/2024 14:30 EDT Appointment [facility] Radiology Nuclear Medicine and PET [address] [address] 03/01/2024 8:00 EDT Appointment [facility] Radiology Nuclear Medicine and PET [address] [phone] 03/01/2024 9:30 EDT Appointment [facility] Radiology Nuclear Medicine and PET [address] 520371 documented as of this encounter Procedures Procedure Name Priority Date/Time Associated Diagnosis Comments SED RATE After X-Ray 04/08/2020 12:00 EST Other acute osteomyelitis, left ankle and foot (HCC-CMS) COMPLETE BLOOD COUNT AND DIFFERENTIAL After X-Ray 04/08/2020 12:00 EST Other acute osteomyelitis, left ankle and foot ([facility]-CMS) C REACTIVE PROTEIN After X-Ray 04/08/2020 12 :00 EST Other acute osteomyelitis, left ankle and foot ([facility]-CMS) CREATININE After X-Ray 04/08/2020 12:00 EST Other acute osteomyelitis, left ankle and foot ([facility]-CMS) documented in this encounter Results * (ABNORMAL) SED. RATE:MARLYN (04/08/2020 12:00 EST) Sed Rate 29(H) 0 - 20 mm/hr 07/01/2020 9:21 EST [facility] Blood VENOUS BLOOD / Unknown 04/08/2020 12:00 EST 06/19/2020 10:05 EST Mushtaq Darlyn Light DO HEMATOLOGY & PF4 OR DERABLES [facility] [address] [place] [address] * (ABNORMAL) COMPLETE BLOOD COUNT AND DIFFERENTIAL (04/08/2020 12:00 EST) WBC 13.10(H) 4.00 - 12.40 K/cmm 07/01/2020 9:20 [facility] RBC 4.42 3.86 - 5.04 M/cmm 07/01/2020 9:20 [facility] Hemoglobin 13.3 11.6 - 15.2 gm/dL 07/01/2020 9:20 [facility] HCT 38.1 34.9 - 44.4 % 07/01/2020 9:20 [facility] MCV 86 81 - 98 fl 07/01/2020 9:20 [facility] MCH 30.1 26.7 - 33.3 pg 07/01/2020 9:20 [facility] MCHC 34.9 32.1 - 35.9 gm/dL 07/01/2020 9:20 [facility] RDW-CV 12.5 <14.7 % 07/01/2020 9:20 [facility] RDW-SD 39.4 <50.4 fl 07/01/2020 9:20 [facility] PLT 336 141 - 377 K/cmm 07/01/2020 9:20 [facility] MPV 10.1 9.5 - 12.7 fl 07/01/2020 9:20 [facility] % Neutrophils 54.3 % 07/01/2020 9:20 [facility] % Lymphocytes 34.2 % 07/01/2020 9:20 [facility] % Monocytes 7.4 % 07/01/2020 9:20 [facility] % Eosinophils 3.4 % 07/01/2020 9:20 [facility] % Basophils 0.5 % 07/01/2020 9:20 [facility] % Immature Grans 0.2 % 07/01/19 9:20 [facility] Absolute Neutrophils 7.10 2.20 - 8.85 K/cmm 07/01/2020 9:20 [facility] Absolute Lymphocytes 4.48(H) 1.09 - 3.30 K/cmm 07/01/2020 9:20 [facility] Absolute Monocytes 0.97(H) 0.10 - 0.80 K/cmm 07/01/2020 9:20 [facility] Absolute Eosinophils 0.45 0.03 - 0.61 K/cmm 07/01/2020 9:20 [facility] ABS Basophils 0.07 0.01 - 0.11 K/cmm 07/01/2020 9:20 [facility] Absolute Immature Grans 0.03 0.00 - 0.06 K/cmm 07/01/2020 9:20 [facility] Type of Differential: Auto 07/01/2020 9:20 [facility] Blood VENOUS BLOOD / Unknown 04/08/2020 12:00 EST 06/19/2020 10:05 EST Mushtaq Light DO PACKAGES & DNA PROB E ORDERABLES [facility] [address] [place] [address] * (ABNORMAL) CREATININE (04/08/2020 12:00 EST) Creatinine 0.42(L) 0.52 - 1.04 mg/dL 06/30/2020 12:00 [facility] eGFR 133 >60 mL/min/1.7 3m2 06/30/2020 12:00 [facility] Comment:eGFR calculated gil curtis CKD-EPI equation for non- Americans. Multiply eGFR by 1.16 for patients. Blood VENOUS BLOOD / Unknown 04/08/2020 12:00 EST 06/19/2020 10:05 EST Mushtaq Light DO CHEMISTRY & BLOOD G ORDERABLES Performing Organization Address City/[facility]/ZIP Co de Phone Number [facility] [address] [place] [address] * C REACTIVE PROTEIN (04/08/2020 12:00 EST) C-Reactive Protein 7.7 <10.0 mg/L 06/30/2020 12:00 EST [facility] Blood VENOUS BLOOD / Unknown 04/08/2020 12:00 EST 06/19/2020 10:05 EST Mushtaq Light DO CHEMISTRY & BLOOD G ORDERABLES Performing Organization Address City/[facility] Co de Phone Number [facility] [address] [place] [address] documented in this encounter Visit Diagnoses Diagnosis Other acute osteomyelitis, left ankle and foot (HCC-CMS) documented in this encounter Additional Health Concerns Infection Onset Date Last Indicated Resolved Time R/O COVID-19 08/04/2020 08/04/2020 08/04/2020 11:4 0 EST documented as of this encounter Care Teams Interventional Sale Consultant Relationship Specialty Start Date End Date Carrington Calderon MD 1 [facility] 1 [place] [address] PCP - General Internal Medicine - Primary Care 12/09/20 Abigail Díaz Marketing Analytics Lead 04/21/23 Carmelo Hendrickson Coordinator 12/01/23 documented as of this encounter
--- OUTSIDE RECORDS SUMMARY | 2024-01-02 06:17 | XMS_ITS | Encounter Summary ---
Author Organization [facility] Address [address] [place] [address] Care Team Providers Care Montessori Toddler Teacher Name Role Phone Unavailable Primary Care Provider Unavailabl e Reason for Visit * Reason Comments Pain Follow-up Encounter Details Date Type Department Care Team (Late st Contact Info) Description 04/30/2020 8:30 EST [facility] Visit [facility] Foot [facility] Ankle Program - [address] [address] Elza Navarro DPM [address] [place] [address] Ulcer of great toe, left, with necrosis of bone ([facility]) (Primary Dx); Type 2 diabetes mellitus with diabetic polyneuropathy, with long-term current use of insulin ([facility]) Social History Tobacco Use Types Packs/Day Years [...] of great toe of left foot ([facility]) 03/12/2020 Priority: Medium ??? Diabetic foot ulcer associated with diabetes mellitus due to underlying condition ([facility]) 03/07/2020 Priority: Medium ??? Diabetic foot infection ([facility]) 03/06/2020 Priority: Medium ??? Diabetic foot ulcer ([facility]) 03/06/2020 Priority: Medium ??? Cellulitis of great toe of left foot 11/26/2019 Priority: Medium ??? Chronic midline low back pain without sciatica 11/26/2019 Priority: Medium ??? Chronic left ear pain 09/04/2015 Priority: Medium ??? Encounter for sterilization 11/20/2019 ??? Family history of rheumatoid arthritis 09/04/2015 ??? Type 2 diabetes mellitus ([facility]) 09/03/2015 ??? Anxiety and depression 05/12/2010 ??? Migraine with aura and without status migrainosus, not intractable Past Medical History: Diagnosis Date ??? Anxiety ??? Arthritis 12/05/19- Spine- told years ago ??? Diabetes ([facility]) A1c 10.3 on 11/28/2019 ??? History [...] toe, left, with necrosis of bone ([facility]) 2. Type 2 diabetes mellitus with diabetic polyneuropathy, with long-term current use of insulin ([facility]) No orders of the defined types [...] with speech recognition software or keyboard data analytics specialist techniques. Minor irregularities or keyboarding misprints may be present documented in this encounter Plan of Treatment Upcoming Encounters Date Type Department Care Team (Late st Contact Info) Description 02/21/2024 9:45 EDT [facility] Visit [facility] Adult Primary Care - [address] [address] Carrington Calderon MD 1 [facility] 1 [place] [address] 02/27/2024 8:30 EDT Telemedicine [facility] Sleep Program - [address] [address] Dwight Colbert [address] [place] [address] 02/29/2024 10:30 EDT Appointment [facility] Radiology Nuclear Medicine and PET [address] 935391 02/29/2024 14:30 EDT Appointment [facility] Radiology Nuclear Medicine and PET [address] 401001 03/01/2024 8:00 EDT Appointment [facility] Radiology Nuclear Medicine and PET [address] [address]1001 03/01/2024 9:30 EDT Appointment [facility] Radiology Nuclear Medicine and [address] [phone] documented as of this encounter Visit Diagnoses Diagnosis Ulcer of great toe, left, with necrosis of bone ([facility])- Primary Type 2 diabetes mellitus with diabetic polyneuropathy, with long-term current use of insulin ([facility]) documented in this encounter Historical Medications [...]
--- OUTSIDE RECORDS SUMMARY | 2024-01-02 06:17 | XMS_ITS | Encounter Summary ---
Author Organization [facility] Address [address] [place] [address] Care Team Providers Care Perpetual Inventory Clerk Name Role Phone Unavailable Primary Care Provider Unavailabl e Reason for Visit * Reason Onset Date Comments Pre-procedure 06/05/2020 Encounter Details Date Type Department Care Team (Latest Contact Info) Description 06/05/2020 Prep for Procedure [facility] Foot & Ankle Program - [address] [phone] Elza Navarro DPM [address] [place] [address] Osteomyelitis of left foot, unspecified [...] Info) Description 02/21/2024 9:45 EDT Office Visit [facility] Adult Primary Care - [address] [phone] Carrington Calderon MD 1 [facility] 1 [place] [phone] 02/27/2024 8:30 EDT Telemedicine [facility] Sleep Program - [address] [phone] Dwight Colbert [address] [place] [address] [phone] 02/29/2024 10:30 EDT [facility] Radiology Nuclear Medicine and PET - [address] 934871 02/29/2024 14:30 EDT [facility] and PET - [address] [phone] 03/01/2024 8:00 EDT Appointment [facility] Radiology Nuclear Medicine and PET - [address] [phone] 03/01/2024 9:30 EDT Appointment [facility] Radiology Nuclear Medicine and PET [address] [phone] documented as of this encounter Visit Diagnoses Diagnosis Osteomyelitis of left foot, unspecified type ([facility])- Primary documented in this encounter
--- OUTSIDE RECORDS SUMMARY | 2024-01-02 06:17 | XMS_ITS | Encounter Summary ---
Author Organization [facility] Address [address] [place] [address] Care Team Providers Care Reduction Plant Supervisor Name Role Phone Unavailable Primary Care [...] [facility] Adult Primary Care - [address] [phone] Carrington Calderon MD [address] [phone] 02/27/2024 8:30 EDT Telemedicine [facility] Sleep Program - [address] [phone] Dwight Colbert [address] [place] [address] [phone] 02/29/2024 10:30 EDT Appointment [facility] Radiology Nuclear Medicine and PET - [address] [phone] 02/29/2024 14:30 EDT Appointment [facility] Radiology Nuclear Medicine and PET - [address] [phone] 03/01/2024 8:00 EDT Appointment [facility] Radiology Nuclear Medicine and PET - [address] [address] 03/01/2024 9:30 EDT Appointment [facility] Radiology Nuclear Medicine and PET - [address] [phone] documented as of this encounter Visit Diagnoses Not on filedocumented in this encounter
--- OUTSIDE RECORDS SUMMARY | 2024-01-02 06:17 | XMS_ITS | Encounter Summary ---
Author Organization [facility] Address [address] [place] [address] Care Team Providers Care Master Machinist Name Role Phone Unavailable Primary Care Provider Unavailabl e Reason for Visit * Reason Comments Diabetes Encounter Details Date Type Department Care Team (Latest Contact Info) Description 06/05/2020 14:00 EST Telemedicine [facility] Endocrinology - [facility] [address] [place], [place] [phone] Sara Zafar NP 62 [facility] [address] [place] [phone] Type 2 diabetes mellitus with left diabetic [...] APRN - 06/05/2020 1400 EST Subjective: [facility] diabetes Center F/U Note TELEMEDICINE VIDEO VISIT [...] Dr. Srinivasan in 2009. 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 Recurrent loss is attributed to to poorly controlled type 2 diabetes in conjunction with tobacco dependence. She saw PROTOHISTORIAN on 11/03/2018, and was advised to get [...] siblings, knows about 2, no DM. 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 Previous [...] and send BS. Freestyle Vignesh CGM ordered. [facility]. Novolog to 8-10 units 15 minute pre- [...] [facility] Adult Primary Care - [address] [address] Carrington Calderon MD 1 [facility] 1 [place] [address] 02/27/2024 8:30 EDT Telemedicine [facility] Sleep Program - [address] [address] Dwight Colbert [address] [place] [address] 02/29/2024 10:30 EDT Appointment [facility] Radiology Nuclear Medicine and PET - [address] [address] 02/29/2024 14:30 EDT Appointment [facility] Radiology Nuclear Medicine and PET [address] 038481 03/01/2024 8:00 EDT Appointment [facility] Radiology Nuclear Medicine and PET [address] 798491 03/01/2024 9:30 EDT Appointment [facility] Radiology Nuclear Medicine and PET [address] [address] documented as of this encounter Visit Diagnoses Diagnosis 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 ([facility])- Primary Type II or unspecified type diabetes mellitus with other specified manifestations, not stated as uncontrolled Anxiety and depression Dysthymic disorder documented in this encounter Discontinued Medications Medication Sig Discontinue Reason Start Date End Da te gabapentin (NEURONTIN) 100 mg capsule Take 100 mg by mouth 3 times daily. 06/05/2020 documented as of this encounter
--- OUTSIDE RECORDS SUMMARY | 2024-01-02 06:17 | XMS_ITS | Encounter Summary ---
Author Organization [facility] Address [address] [place] [address] Care Team Providers Care Supervisor Capacitor Processing Name Role Phone Unavailable Primary Care Provider Unavailabl e Reason for Visit * Reason Onset Date Comments Medication Management 06/13/2020 Encounter Details Date Type Department Care Team (Late st Contact Info) Description 06/13/2020 Telephone [facility] Endocrinology - [facility] [address] [place] [address] Sara Zafar NP 62 [facility] [address] [place] [address] Medication Management Social History Tobacco [...] [facility] Adult Primary Care - [address] [phone] Carrington Calderon MD [address] [facility] 1 [place] [phone] 02/27/2024 8:30 EDT Telemedicine [facility] Sleep Program - [address] [place] [address] [place] [address] Sayra Dwight [address] [place] [address] 02/29/2024 10:30 EDT [facility] Radiology Nuclear Medicine and PET - [address] [id number] 02/29/2024 14:30 EDT [facility] Radiology Nuclear Medicine and PET - [address] 385481 03/01/2024 8:00 EDT Appointment [facility] Radiology Nuclear Medicine and PET - [address] [phone] 03/01/2024 9:30 EDT Appointment [facility] Radiology Nuclear Medicine and PET - [address] [phone] documented as of this encounter Visit Diagnoses Not on filedocumented in this encounter
--- OUTSIDE RECORDS SUMMARY | 2024-01-02 06:17 | XMS_ITS | Encounter Summary ---
Author Organization [facility] Address [address] [place] [address] Care Team Providers Care Pivot Maker Name Role Phone Unavailable Primary Care Provider Unavailabl e Reason for Visit * Reason Onset Date Comments Abnormal Lab 05/05/2020 Encounter Details Date Type Department Care Team ([facility] st Contact Info) Description 05/05/2020 Telephone [facility] Medicine [address] [address] Shari Grider, DO [address] [place] [address] Abnormal Lab Social History Tobacco Use Types [...] Encounter - Shari Grider DO - 05/05/2020 2599 EST Lab called with critical result - blood culture positive for gram positive bacilli at 37 hours in 1/2 aerobic bottles. Case discussed with Dr. You who notes patient was well-appearing when she left AMA last night. Will check in with her tomorrow AM and let her outpatient care team know. Shari Grider DO 05/05/20 22:20 Family Medicine PGY-3 Pager #[phone] documented in this encounter Plan of Treatment Upcoming Encounters Date Type Department Care Team (Late st Contact Info) Description 02/21/2024 9:45 EDT Office Visit [facility] Adult Primary Care - [address] [address] Carrington Calderon MD 1 [facility] 1 [place] [address] 02/27/2024 8:30 EDT Telemedicine [facility] Sleep Program - [address] [address] Dwight Colbert [address] [place] [phone] 02/29/2024 10:30 EDT [facility]ment [facility] Radiology Nuclear Medicine and PET [address] 969171 02/29/2024 14:30 EDT Appointment [facility] Radiology Nuclear Medicine and PET [address] [phone] 03/01/2024 8:00 EDT Appointment edical [place] Radiology Nuclear Medicine and PET - [address] [phone] 03/01/2024 9:30 EDT Appointment [facility] Radiology Nuclear Medicine and PET [address] 304611 documented as of this encounter Visit Diagnoses Not on filedocumented in this encounter
--- OUTSIDE RECORDS SUMMARY | 2024-01-02 06:17 | XMS_ITS | Encounter Summary ---
Author Organization [facility] Address [address] [place] [address] Care Team Providers Care Scale Attendant Name Role Phone Unavailable Primary Care Provider Unavailabl e Encounter Details Date Type Department Care Team ([facility] Contact Info) Description 05/12/2020 Documentation Visit [facility] - [address] [place], [place] [phone] Marcel Bustamante Social History Tobacco Use Types [...] [facility] Adult Primary Care - [address] 115841 Carrington Calderon MD 1 [facility] 1 [place] [phone] 02/27/2024 8:30 EDT Telemedicine [facility] Sleep Program - [address] [phone] Dwight Colbert [address] [place] [address] [phone] 02/29/2024 10:30 EDT Appointment [facility] Radiology Nuclear Medicine and PET [address] [phone] 02/29/2024 14:30 EDT Appointment [facility] Radiology Nuclear Medicine and PET [address] 928551 03/01/2024 8:00 EDT Appointment [facility] Radiology Nuclear Medicine and PET [address] 300571 03/01/2024 9:30 EDT Appointment [facility] Radiology Nuclear Medicine and PET [address] [phone] documented as of this encounter Visit Diagnoses [...]
--- OUTSIDE RECORDS SUMMARY | 2024-01-02 06:17 | XMS_ITS | Encounter Summary ---
Author Organization [facility] Address [address] [place] [address] Care Team Providers Care Finish Repair Worker Name Role Phone Unavailable Primary Care [...] Visit [facility] Adult Primary Care - [address] 230691 Carrington Calderon MD [address] [phone] 02/27/2024 8:30 EDT Telemedicine [facility] Sleep Program - [address] [phone] Dwight Colbert [address] [place] [phone] 02/29/2024 10:30 EDT Appointment [facility] Radiology Nuclear Medicine and PET - [address] [phone] 02/29/2024 14:30 EDT Appointment [facility] Radiology Nuclear Medicine and PET - [address] [phone] 03/01/2024 8:00 EDT Appointment [facility] Radiology Nuclear Medicine and PET - [address] [address] 03/01/2024 9:30 EDT Appointment [facility] Radiology Nuclear Medicine and PET - [address] [phone] documented as of this encounter Visit Diagnoses Not on filedocumented in this encounter
--- OUTSIDE RECORDS SUMMARY | 2024-01-02 06:17 | XMS_ITS | Encounter Summary ---
Author Organization [facility] Address [address] [place] [address] Care Team Providers Care Advertising Solicitor Name Role Phone Unavailable Primary Care Provider Unavailabl e Reason for Visit * Reason Comments Foot Problem * Follow Up (Routine/Next Available) - Receiving Office to Obtain Authorization Specialty Diagnoses / Procedures Referred By Kit goode Referred To Contact Podiatry Diagnoses Diabetic foot ulcer ([facility]) Carrington Mari MD [address] [place] [address] [facility] [address] [place] [address] Referral ID Status Reason Start Date Expiration Date Visits Requested Visits Authorized [id number] Receiving Office to Obtain Authorization Specialty Services Required 0 1 1 Encounter Details Date Type Department Care Team (Late st Contact Info) Description 05/14/2020 14:30 EST Office Visit [facility] Foot & Ankle Program - [address] [place] [address] Elza Navarro DPM [address] [place] [phone] Ulcer of great toe, left, with necrosis of bone ([facility]) (Primary Dx); Type 2 diabetes mellitus with diabetic polyneuropathy, with long-term current use of insulin ([facility]) Social History Tobacco Use Types Packs/Day [...] Notes * Elza Navarro, DPM - 05/14/2020 7440 EST Images from the original note were [...] shoe andinsole. She has been taking the cskujluzaqi-Qexubwbin-vkkesxi any issues. She has been changing thedressing daily. Overall she is feeling well today. She denies pain in the toe. She denies nausea, vomiting, fever, chills. Patient Active Problem List Diagnosis Date Noted ??? 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 ([facility]) 05/03/2020 Priority: Medium ??? Osteomyelitis of great toe of left foot ([facility]) 03/12/2020 Priority: Medium ??? Diabetic foot ulcer associated with diabetes mellitus due to underlying condition ([facility]) 03/07/2020 Priority: Medium ??? Diabetic foot infection ([facility]) 03/06/2020 Priority: Medium ??? Diabetic foot ulcer ([facility]) 03/06/2020 Priority: Medium ??? Cellulitis of great toe of left foot 11/26/2019 Priority: Medium ??? Chronic midline low back pain without sciatica 11/26/2019 Priority: Medium ??? Chronic left ear pain 09/04/2015 Priority: Medium ??? Encounter for sterilization 11/20/2019 ??? Family history of rheumatoid arthritis 09/04/2015 ??? Type 2 diabetes mellitus ([facility]) 09/03/2015 ??? Anxiety and depression 05/12/2010 ??? Migraine with aura and without status migrainosus, not intractable Past Medical History: Diagnosis Date ??? Anxiety ??? Arthritis 12/05/19- Spine- told years ago ??? Diabetes ([facility]) A1c 10.3 on 11/28/2019 ??? History [...] great toe, left, with necrosis of bone ([facility]) 2. Type 2 diabetes mellitus with diabetic polyneuropathy, with long-term current use of insulin ([facility]) No orders of the defined types [...] with speech recognition software or keyboard database specialist techniques. Minor irregularities or keyboarding misprints may be present documented in this encounter Plan of Treatment Upcoming Encounters Date Type Department Care Team (Late st Contact Info) Description 02/21/2024 9:45 EDT Office Visit [facility] Adult Primary Care - [address] 801251 Carrington Calderon MD 1 [facility] 1 [place] [address] 02/27/2024 8:30 EDT Telemedicine [facility] Sleep Program - [address] 495371 Dwight Colbert [address] [place] [phone] 02/29/2024 10:30 EDT Appointment [facility] Radiology Nuclear Medicine and PET [address] [id number] 02/29/2024 14:30 EDT Appointment [facility] Radiology Nuclear Medicine and PET - [address] [id number] 03/01/2024 8:00 EDT Appointment [facility] Radiology Nuclear Medicine and PET [address] [phone] 03/01/2024 9:30 EDT Appointment [facility] Radiology Nuclear Medicine and PET [address] [phone] documented as of this encounter Visit Diagnoses Diagnosis Ulcer of great toe, left, with necrosis of bone (HCC-CMS)- Primary Type 2 diabetes mellitus with diabetic polyneuropathy, with long-term current use of insulin ([facility]) documented in this encounter
--- OUTSIDE RECORDS SUMMARY | 2024-01-02 06:17 | XMS_ITS | Encounter Summary ---
Author Organization [facility] Address [address] [place] [address] Care Team Providers Care Hand I Thermal Cutter Name Role Phone Unavailable Primary Care Provider Unavailabl e Reason for Visit * Reason Comments Follow-up Encounter Details Date Type Department Care Team (Late st Contact Info) Description 04/18/2020 10:30 EST Office Visit [facility] Foot & Ankle Program - [address] [address] Elza Navarro DPM [address] [place] [phone] Ulcer of great toe, left, with necrosis of bone ([facility]) (Primary Dx); Type 2 diabetes mellitus with diabetic polyneuropathy, with long-term current use of insulin ([facility]) Social History Tobacco Use Types Packs/Day [...] Navarro, DPM - 04/18/2020 0000 EST [facility] FOOT AND ANKLE PROGRAM PROGRESS / FOLLOWUP [...] Elza Navarro DPM / SWAPNIL Dictation ID: [id number] cc: documented in this encounter Plan of Treatment Upcoming Encounters Date Type Department Care Team (Late st Contact Info) Description 02/21/2024 9:45 EDT Office Visit [facility] Adult Primary Care [address] [address] Carrington Calderon MD 1 [facility] Level 1 [place] [phone] 02/27/2024 8:30 EDT Telemedicine [facility] Sleep Program - [address] [place] [address] Dwight Colbert [address] [place] [phone] 02/29/2024 10:30 EDT [facility] Radiology Nuclear Medicine and PET - [address] [address] 02/29/2024 14:30 EDT Appointment [facility] Radiology Nuclear Medicine and PET - [address] 484281 03/01/2024 8:00 EDT Appointment [facility] Radiology Nuclear Medicine and PET - [address] 349011 03/01/2024 9:30 EDT Appointment [facility] Radiology Nuclear Medicine and PET - [address] [address] documented as of this encounter Visit Diagnoses Diagnosis Ulcer of great toe, left, with necrosis of bone ([facility])- Primary Type 2 diabetes mellitus with diabetic polyneuropathy, with long-term current use of insulin ([facility]) documented in this encounter
--- OUTSIDE RECORDS SUMMARY | 2024-01-02 06:17 | XMS_ITS | Encounter Summary ---
Author Organization [facility] Address [address] [place] [address] Care Team Providers Care Signing Teacher Name Role Phone Unavailable Primary Care [...] Info) Description 02/21/2024 9:45 EDT Office Visit [facility] Adult Primary Care - [address] [phone] Carrington Calderon MD [address] [phone] 02/27/2024 8:30 EDT Telemedicine [facility] Sleep Program - [address] [phone] Dwight Colbert [address] [place] [address] [phone] 02/29/2024 10:30 EDT Appointment [facility] Radiology Nuclear Medicine and PET - [address] [id number] 02/29/2024 14:30 EDT Appointment [facility] Radiology Nuclear Medicine and PET - [address] [phone] 03/01/2024 8:00 EDT Appointment [facility] Radiology Nuclear Medicine and PET - [address] [address] 03/01/2024 9:30 EDT Appointment [facility] Radiology Nuclear Medicine and PET - [address] [phone] documented as of this encounter Visit Diagnoses Not on filedocumented in this encounter
--- OUTSIDE RECORDS SUMMARY | 2024-01-02 06:17 | XMS_ITS | Encounter Summary ---
Author Organization [facility] Address [address] [place] [address] Care Team Providers Care Film Cutter Name Role Phone Unavailable Primary Care Provider Unavailabl e Reason for Visit * Reason Onset Date Comments Other 06/13/2020 Encounter Details Date Type Department Care Team (Late st Contact Info) Description 06/13/2020 Telephone [facility] Foot & Ankle Program - [address] [address] Elza Navarro DP [address] [place] [phone] Other Social History Tobacco Use [...] told to arrive @1:30 on 06.16.20 @ [facility], nothing to eat or drink after [...] [facility] Adult [facility] Care - [address] [phone] Carrington Calderon MD 1 [facility] 1 [place] [address] 02/27/2024 8:30 EDT Telemedicine [facility] Sleep Program - [address] [phone] Dwight Colbert [address] [place] [address] [phone] 02/29/2024 10:30 EDT Appointment [facility] Radiology Nuclear Medicine and PET - [address] [phone] 02/29/2024 14:30 EDT Appointment [facility] Radiology Nuclear Medicine and PET [address] [id number] 03/01/2024 8:00 EDT Appointment [facility] Radiology Nuclear Medicine and PET [address] [id number] 03/01/2024 9:30 EDT Appointment [facility] Radiology Nuclear Medicine and PET [address] [phone] documented as of this encounter Visit Diagnoses Not on filedocumented in this encounter
--- OUTSIDE RECORDS SUMMARY | 2024-01-02 06:17 | XMS_ITS | Encounter Summary ---
Author Organization [facility] Address [address] [place] [address] Care Team Providers Care Lead Software Tester Name Role Phone Carrington Calderon MD Primary Care Provi anders Abigail Díaz Unavailable Carmelo Hendrickson Unavailable Unavailable Encounter Details Date Type Department Care Team (Late st Contact Info) Description 04/01/2020 Lab Requisition [facility] Pathology & Laboratory Medicine - [address] [address] Mushtaq Light, DO 111 [facility], Level 5 [place] [address] Encounter for other general examination [...] [facility] Adult Primary Care - [address] [phone] Carrington Calderon MD 1 [facility] 1 [place] [phone] 02/27/2024 8:30 EDT Telemedicine [facility] Sleep Program - [address] [address] Dwight Colbert [address] [place] [address] [phone] 02/29/2024 10:30 EDT Appointment [facility] Radiology Nuclear Medicine and PET [address] [phone] 02/29/2024 14:30 EDT Appointment [facility] Radiology Nuclear Medicine and PET [address] [phone] 03/01/2024 8:00 EDT Appointment [facility] Radiology Nuclear Medicine and PET [address] [phone] 03/01/2024 9:30 EDT Appointment [facility] Radiology Nuclear Medicine and PET [address] [phone] documented as of this encounter Procedures Procedure [...] this encounter Results * (ABNORMAL) SED. RATE:MARLYN (04/01/2020 10:10 EDT) Sed Rate 30(H) 0 - 20 mm/hr 04/01/2020 20:32 EDT [facility] Comment:Note: Sample greater than 4 hours old (but less than 12 hours) when tested. If refrigerated, sample is stable when tested within 12 hours of collection. Blood VENOUS BLOOD / Unknown Non-Lab Collect / Unknown 04/01/2020 10:10 EDT 04/01/2020 18:42 EDT Mushtaq Light DO HEMATOLOGY & PF4 OR DERABLES [facility] [address] [place] [address] * (ABNORMAL) COMPLETE BLOOD COUNT AND DIFFERENTIAL (04/01/2020 10:10 EDT) WBC 10.42 4.00 - 12.40 K/cmm 04/01/2020 19:15 [facility] RBC 4.54 3.86 - 5.04 M/cmm 04/01/2020 19:15 [facility] Hemoglobin 13.7 11.6 - 15.2 gm/dL 04/01/2020 19:15 [facility] HCT 40.9 34.9 - 44.4 % 04/01/2020 19:15 [facility] MCV 90 81 - 98 fl 04/01/2020 19:15 [facility] MCH 30.2 26.7 - 33.3 pg 04/01/2020 19:15 [facility] MCHC 33.5 32.1 - 35.9 gm/dL 04/01/2020 19:15 [facility] RDW-CV 12.4 <14.7 % 04/01/2020 19:15 [facility] RDW-SD 40.9 <50.4 fl 04/01/2020 19:15 [facility] PLT 336 141 - 377 K/cmm 04/01/2020 19:15 [facility] MPV 10.5 9.5 - 12.7 fl 04/01/2020 19:15 [facility] % Neutrophils 48.0 % 04/01/2020 19:15 [facility] % Lymphocytes 38.5 % 04/01/2020 19:15 [facility] % Monocytes 8.1 % 04/01/2020 19:15 [facility] % Eosinophils 4.5 % 04/01/2020 19:15 [facility] % Basophils 0.7 % 04/01/2020 19:15 [facility] % Immature Grans 0.2 % 04/01/20 20 19:15 [facility] Absolute Neutrophils 5.01 2.20 - 8.85 K/cmm 04/01/2020 19:15 [facility] Absolute Lymphocytes 4.01(H) 1.09 - 3.30 K/cmm 04/01/2020 19:15 [facility] Absolute Monocytes 0.84(H) 0.10 - 0.80 K/cmm 04/01/2020 19:15 [facility] Absolute Eosinophils 0.47 0.03 - 0.61 K/cmm 04/01/2020 19:15 [facility] ABS Basophils 0.07 0.01 - 0.11 K/cmm 04/01/2020 19:15 [facility] Absolute Immature Grans 0.02 0.00 - 0.06 K/cmm 04/01/2020 19:15 [facility] Type of Differential: Auto 04/01/2020 19:15 [facility] Blood VENOUS BLOOD / Unknown Non-Lab Collect / Unknown 04/01/2020 10:10 EDT 04/01/2020 18:42 EDT Mushtaq Light DO PACKAGES & DNA PROB E ORDERABLES Performing Organization Address City/State/[facility] Co de Phone Number [facility] [address] [place] [address] * (ABNORMAL) CREATININE (04/01/2020 10:10 EDT) Creatinine 0.37(L) 0.52 - 1.04 mg/dL 04/01/2020 19:10 EDT [facility] eGFR 139 >60 mL/min/1.7 3m2 04/01/2020 19:10 EDT [facility] Comment:eGFR calculated gil curtis CKD-EPI equation for non- Americans. Multiply eGFR by 1.16 for patients. Blood VENOUS BLOOD / Unknown Non-Lab Collect / Unknown 04/01/2020 10:10 EDT 04/01/2020 18:42 EDT Mushtaq Light DO CHEMISTRY & BLOOD G ORDERABLES Performing Organization Address City/[facility]/ZIP Co de Phone Number [facility] [address] [place] [address] * C REACTIVE PROTEIN (04/01/2020 10:10 EDT) C-Reactive Protein <7.0 <10.0 mg/L 04/01/2020 19:10 EDT [facility] Blood VENOUS BLOOD / Unknown Non-Lab Collect / Unknown 04/01/2020 10:10 EDT 04/01/2020 18:42 EDT Mushtaq Light DO CHEMISTRY & BLOOD G ORDERABLES Performing Organization Address [facility] Co de Phone Number [facility] [address] [place] [address] documented in this encounter Visit Diagnoses Diagnosis Encounter for other general examination documented in this encounter Additional Health Concerns Infection Onset Date Last Indicated Resolved Time R/O COVID-19 08/04/2020 08/04/2020 08/04/2020 11:4 0 EST documented as of this encounter Care Teams Lead Software Tester Relationship Specialty Start Date End Date Carrington Calderon MD 1 [facility] 1 [place] [address] PCP - General Internal Medicine - Primary Care 12/09/20 Abigail Díaz Channeling Machine Runner 04/21/23 Carmelo Hendrickson Coordinator 12/01/23 documented as of this encounter
--- OUTSIDE RECORDS SUMMARY | 2024-01-02 06:17 | XMS_ITS | Encounter Summary ---
Author Organization [facility] Address [address] [place] [address] Care Team Providers Care Superintendent Service Name Role Phone Unavailable Primary Care Provider Unavailabl e Reason for Visit * Reason Comments Follow-up Encounter Details Date Type Department Care Team (Late st Contact Info) Description 04/03/2020 13:30 EDT Telemedicine [facility] Infectious Disease - [address] [phone] Tonja Plascencia NP 111 [facility], Level 5 [place] [address] Osteomyelitis of great toe of [...] For patients, please refer to guidance in [employer] on how to locate information. Generally this information will appear as a scanned documents saved in My Documents activity. documented in this encounter Plan of Treatment Upcoming Encounters Date Type Department Care Team (Late st Contact Info) Description 02/21/2024 9:45 EDT Office Visit [facility] Adult Primary Care - [address] [phone] Carrington Calderon MD [address] [facility] 1 [place] [address] 02/27/2024 8:30 EDT Telemedicine [facility] Sleep Program - [address] [place] [address] ColbertDwight garner [address] [place] [phone] 02/29/2024 10:30 EDT [facility]ment [facility] Radiology Nuclear Medicine and PET - [address] [phone] 02/29/2024 14:30 EDT Appointment [facility] Radiology Nuclear Medicine and PET - [address] [phone] 03/01/2024 8:00 EDT Appointment [facility] Radiology Nuclear Medicine and PET - [address] [phone] 03/01/2024 9:30 EDT Appointment [facility] Radiology Nuclear Medicine and PET - [address] [phone] documented as of this encounter Visit Diagnoses Diagnosis Osteomyelitis of great toe of left foot (HCC-CMS)- Primary documented in this encounter
--- OUTSIDE RECORDS SUMMARY | 2024-01-02 06:17 | XMS_ITS | Encounter Summary ---
Author Organization [facility] Address [address] [place] [address] Care Team Providers Care Steel Rigger Name Role Phone Unavailable Primary Care Provider Unavailabl e Reason for Visit * Reason Comments Telemedicine Video Visit Encounter Details Date Type Department Care Team (Late st Contact Info) Description 06/04/2020 12:00 EST Telemedicine [facility] Infectious Disease - [address] [phone] Mushtaq Light, DO 111 [facility], Level 5 [place] [address] Osteomyelitis of great toe of [...] Spine- told years ago ??? Diabetes ([facility]) ? A1c 10.3 on 11/28/2019 ??? [...] BODIES: None ?? 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 Attends adventist service: Not on file ? 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 swab: negative 05/04 blood cultures:06/09 bottles growing [...] [facility] - [address] [phone] Carrington Calderon MD [address] [phone] 02/27/2024 8:30 EDT Telemedicine [facility] Sleep Program - [address] [phone] Dwight Colbert [address] [place] [address] [phone] 02/29/2024 10:30 EDT Appointment [facility] Radiology Nuclear Medicine and PET - [address] 133101 02/29/2024 14:30 EDT Appointment [facility] Radiology Nuclear Medicine and PET - [address] [phone] 03/01/2024 8:00 EDT Appointment [facility] Radiology Nuclear Medicine and PET [address] [phone] 03/01/2024 9:30 EDT Appointment [facility] Radiology Nuclear Medicine and PET [address] [phone] documented as of this encounter Visit Diagnoses Diagnosis Osteomyelitis of great toe of left foot (HCC-CMS)- Primary documented in this encounter
--- OUTSIDE RECORDS SUMMARY | 2024-01-02 06:17 | XMS_ITS | Encounter Summary ---
Author Organization [facility] Address [address] [place] [address] Care Team Providers Care Manufacturing Millwright Name Role Phone Unavailable Primary Care Provider Unavailabl e Encounter Details Date Type Department Care Team (Latest Contact Info) Description 06/09/2020 9:35 EST Phlebotomy Only [facility] [employer] [address] [place] [address] Osteomyelitis of left foot, unspecified type ([facility]) Social History Tobacco Use Types Packs/Day [...] [facility] Adult Primary Care - [address] 978471 Carrington Calderon MD [address] [phone] 02/27/2024 8:30 EDT Telemedicine [facility] Sleep Program - [address] [phone] Dwight Colbert [address] [place] [phone] 02/29/2024 10:30 EDT Appointment [facility] Radiology Nuclear Medicine and PET - [address] 562141 02/29/2024 14:30 EDT Appointment [facility] Radiology Nuclear Medicine and PET [address] [address] 03/01/2024 8:00 EDT Appointment [facility] Nuclear [facility] and [address] [address] 03/01/2024 9:30 EDT Appointment [facility] Nuclear [facility] and [address] [address] documented as of this encounter Procedures Procedure Name Priority Date/Time Associated Diagnosis Comments ZZCOVID-19 TEST [facility] PCR Today 06/09/2020 9:28 EST Osteomyelitis of left foot, unspecified type (HCC-CMS) COVID-19 TESTING Routine 06/09/2020 9:28 EST Osteomyelitis of left foot, unspecified type (HCC-CMS) documented in this encounter Results * COVID-19 TEST [facility] PCR (06/09/2020 9:28 EST) Swab ENTIRE NASOPHARYNX / Unknown Swab / Unknown 06/09/2020 9:28 EST 06/09/2020 9:28 EST Elza Navarro DPM MICROBIOLOGY - GENER AL ORDERABLES [facility] [address] [place] [address] * COVID-19 TESTING (06/09/2020 9:28 EST) COVID-19 rt-PCR Result Negative Negative 06/09/2020 16:34 EST [facility] Comment: This test has not [...] history, and epidemiological information. Performed on the [employer] Fusion instrument Performing Lab Glidden [facility] 06/09/2020 16:34 EST [facility] Swab ENTIRE NASOPHARYNX / Unknown Swab / Unknown 06/09/2020 9:28 EST 06/09/2020 9:28 EST Elza Navarro DPM MICROBIOLOGY - GENER AL ORDERABLES [facility] [address] [place] [address] documented in this encounter Visit Diagnoses Diagnosis Osteomyelitis of left foot, unspecified type (HCC-CMS) documented in this encounter
--- OUTSIDE RECORDS SUMMARY | 2024-01-02 06:17 | XMS_ITS | Encounter Summary ---
Author Organization [facility] Address [address] [place] [address] Care Team Providers Care Massage Operator Name Role Phone Unavailable Primary Care [...] [facility] Adult Primary Care - [address] [phone] Carrington Calderon MD [address] [phone] 02/27/2024 8:30 EDT Telemedicine [facility] Sleep Program - [address] [address] Dwight Colbert [address] [place] [phone] 02/29/2024 10:30 EDT Appointment [facility] Radiology Nuclear Medicine and PET - [address] [id number] 02/29/2024 14:30 EDT Appointment [facility] Radiology Nuclear Medicine and PET - [address] [address]1951 03/01/2024 8:00 EDT Appointment [facility] Radiology Nuclear Medicine and PET - [address] 141781 03/01/2024 9:30 EDT Appointment [facility] Radiology Nuclear Medicine and PET - [address] [address] documented as of this encounter Visit Diagnoses Not on filedocumented in this encounter
--- OUTSIDE RECORDS SUMMARY | 2024-01-02 06:17 | XMS_ITS | Encounter Summary ---
Author Organization [facility] Address [address] [place] [address] Care Team Providers Care Wedding Coordinator Name Role Phone Carrington Calderon MD Primary Care Provi anders Abigail Díaz Unavailable [phone] Carmelo Hendrickson Unavailable Unavailable Encounter Details Date Type Department Care Team (Late st Contact Info) Description 06/23/2020 Lab Requisition [facility] Pathology & Laboratory Medicine - [facility] [address] [place] [address] Mushtaq Light, DO 111 [facility], [address] [place] [address] Other chronic hematogenous osteomyelitis, left [...] [facility] Adult Primary Care - [address] [phone] Carrington Calderon MD 1 [facility] 1 [place] [phone] 02/27/2024 8:30 EDT Telemedicine [facility] Sleep Program - [address] [phone] Dwight Colbert [address] [place] [address] 02/29/2024 10:30 EDT Appointment [facility] Radiology Nuclear Medicine and PET - [address] [address] 02/29/2024 14:30 EDT Appointment [facility] Radiology Nuclear Medicine and PET [address] [address] 03/01/2024 8:00 EDT Appointment [facility] Radiology Nuclear Medicine and PET [address] [address] 03/01/2024 9:30 EDT Appointment [facility] Radiology Nuclear Medicine and PET [address] [phone] documented as of this encounter Procedures Procedure Name Priority Date/Time Associated Diagnosis Comments DIFFERENTIAL MANUAL Today 04/15/2020 1 1:28 EST Other chronic hematogenous osteomyelitis, left ankle and foot (HCC-CMS) SED RATE After X-Ray 04/15/2020 11:28 EST Other chronic hematogenous osteomyelitis, left ankle and foot (HCC-CMS) COMPLETE BLOOD COUNT AND DIFFERENTIAL After X-Ray 04/15/2020 11:28 EST Other chronic hematogenous osteomyelitis, left ankle and foot (HCC-CMS) C REACTIVE PROTEIN After X-Ray 04/15/2020 11 :28 EST Other chronic hematogenous osteomyelitis, left ankle and foot (HCC-CMS) CREATININE After X-Ray 04/15/2020 11:28 EST Other chronic hematogenous osteomyelitis, left ankle and foot (HCC-CMS) documented in this encounter Results * (ABNORMAL) DIFFERENTIAL MANUAL (04/15/2020 11:28 EST) % Neutrophils 48.0 % 07/03/2020 12:50 EST [facility] % Bands 1.0 % 07/03/2020 12:50 [facility] % Lymphocytes 40.0 % 07/03/2020 12:50 [facility] % Atypical Lymphocytes 4.0 % 07/03/2020 12:50 [facility] % Monocytes 5.0 % 07/03/2020 12:50 [facility] % Eosinophils 1.0 % 07/03/2020 12:50 [facility] % Basophils 1.0 % 07/03/2020 12:50 [facility] Absolute Neutrophils 6.40 2.20 - 8.85 K/cmm 07/03/2020 12:50 [facility] Absolute Bands 0.13 K/cmm 07/03/2020 12:50 [facility] Absolute Lymphocytes 5.33(H) 1.09 - 3.30 K/cmm 07/03/2020 12:50 [facility] Absolute Atypical Lymphocytes 0.53 K/cmm 07/03/2020 12:50 [facility] Absolute Monocytes 0.67 0.10 - 0.80 K/cmm 07/03/2020 12:50 [facility] Absolute Eosinophils 0.13 0.03 - 0.61 K/cmm 07/03/2020 12:50 [facility] ABS Basophils 0.13(H) 0.01 - 0.11 K/cmm 07/03/2020 12:50 [facility] Blood VENOUS BLOOD / Unknown 04/15/2020 11:28 EST 06/23/2020 15:27 EST Mushtaq Light DO HEMATOLOGY & PF4 OR DERABLES [facility] [address] [place] [address] * (ABNORMAL) SED. RATE:MARLYN (04/15/2020 11:28 EST) Sed Rate 25(H) 0 - 20 mm/hr 07/03/2020 12:51 [facility] Blood VENOUS BLOOD / Unknown 04/15/2020 11:28 EST 06/23/2020 15:27 EST Mushtaq Light DO HEMATOLOGY & PF4 OR DERABLES [facility] [address] [place] [address] * (ABNORMAL) COMPLETE BLOOD COUNT AND DIFFERENTIAL (04/15/2020 11:28 EST) WBC 13.33(H) 4.00 - 12.40 K/cmm 07/03/2020 12:50 [facility] RBC 4.38 3.86 - 5.04 M/cmm 07/03/2020 12:50 [facility] Hemoglobin 13.5 11.6 - 15.2 gm/dL 07/03/2020 12:50 [facility] HCT 38.6 34.9 - 44.4 % 07/03/2020 12:50 [facility] MCV 88 81 - 98 fl 07/03/2020 12:50 [facility] MCH 30.8 26.7 - 33.3 pg 07/03/2020 12:50 [facility] MCHC 35.0 32.1 - 35.9 gm/dL 07/03/2020 12:50 [facility] RDW-CV 12.5 <14.7 % 07/03/2020 12:50 [facility] RDW-SD 40.6 <50.4 fl 07/03/2020 12:50 [facility] PLT 344 141 - 377 K/cmm 07/03/2020 12:50 [facility] MPV 9.8 9.5 - 12.7 fl 07/03/2020 12:50 [facility] Type of Differential: Manual 07/03/2020 12:50 [facility] Blood VENOUS BLOOD / Unknown 04/15/2020 11:28 EST 06/23/2020 15:27 EST Mushtaq Light DO PACKAGES & DNA PROB E ORDERABLES Performing Organization Address [facility] Co de Phone Number [facility] [address] [place] [address] * (ABNORMAL) CREATININE (04/15/2020 11:28 EST) Creatinine 0.43(L) 0.52 - 1.04 mg/dL 06/30/2020 12:01 EST [facility] eGFR 132 >60 mL/min/1.7 3m2 06/30/2020 12:01 EST [facility] Comment:eGFR calculated gil curtis CKD-EPI equation for non- Americans. Multiply eGFR by 1.16 for patients. Blood VENOUS BLOOD / Unknown 04/15/2020 11:28 EST 06/23/2020 15:27 EST Mushtaq Light DO CHEMISTRY & BLOOD G ORDERABLES Performing Organization Address [facility] Co de Phone Number [facility] [address] [place] [address] * C REACTIVE PROTEIN (04/15/2020 11:28 EST) C-Reactive Protein <7.0 <10.0 mg/L 06/30/2020 12:01 EST [facility] Blood VENOUS BLOOD / Unknown 04/15/2020 11:28 EST 06/23/2020 15:27 EST Mushtaq Lihgt DO CHEMISTRY & BLOOD G ORDERABLES Performing Organization Address [facility] Co de Phone Number [facility] [address] [place] [address] documented in this encounter Visit Diagnoses Diagnosis Other chronic hematogenous osteomyelitis, left ankle and foot (HCC-CMS) documented in this encounter Additional Health Concerns Infection Onset Date Last Indicated Resolved Time R/O COVID-19 08/04/2020 08/04/2020 08/04/2020 11:4 0 EST documented as of this encounter Care Teams Wedding Coordinator Relationship Specialty Start Date End Date Carrington Calderon MD 1 [facility] 1 [place] [address] PCP - General Internal Medicine - Primary Care 12/09/20 Abigail Díaz Corn Popper 04/21/23 Carmelo Hendrickson Coordinator 12/01/23 documented as of this encounter
--- OUTSIDE RECORDS SUMMARY | 2024-01-02 06:18 | XMS_ITS | Encounter Summary ---
Author Organization [facility] Address [address] [place] [address] Care Team Providers Care Clay Processing Factory Worker Name Role Phone Unavailable Primary Care Provider Unavailabl e Encounter Details Date Type Department Care Team ([facility] Contact Info) Description 03/21/2020 Documentation Visit [facility] - [address] [place] [address] Karthikeyan Crook, RN [address] [place] [address] Social History Tobacco Use Types Packs/Day Years [...] Notes * Karthikeyan Crook, MARCELO - 03/21/2020 9680 EDT Patient: Cristy Luo is a 35 [...] CROOK RN 03/21/2020 14:10 * [place], [facility] - 03/21/2020 0379 EDT Patient: Cristy Luo is a 35 [...] [facility] Adult Primary Care - [address] [phone] Carrington Calderon MD 1 [facility] 1 [place] [address] 02/27/2024 8:30 EDT Telemedicine [facility] Sleep Program - [address] [phone] Dwight Colbert [address] [place] [address] [phone] 02/29/2024 10:30 EDT Appointment [facility] Radiology Nuclear Medicine and PET - [address] 240271 02/29/2024 14:30 EDT Appointment [facility] Radiology Nuclear Medicine and PET - [address] [address] 03/01/2024 8:00 EDT Appointment [facility] Radiology Nuclear Medicine and PET - [address] [address] 03/01/2024 9:30 EDT Appointment [facility] Radiology Nuclear Medicine and PET - [address] [address] documented as of this encounter Visit Diagnoses Not on filedocumented in this encounter
--- OUTSIDE RECORDS SUMMARY | 2024-01-02 06:18 | XMS_ITS | Encounter Summary ---
Author Organization [facility] Address [address] [place] [address] Care Team Providers Care Title Specialist Name Role Phone Unavailable Primary Care Provider Unavailabl e Reason for Visit * Reason Onset Date Comments Coordination Of Care 03/12/2020 Encounter Details Date Type Department Care Team (Late st Contact Info) Description 03/12/2020 Telephone [facility] Adult Primary Care - [address] 148131 [facility]jandro [facility]C [facility] [address] [place] [phone] Coordination Of Care Social History Tobacco [...] Visit [facility] Adult Primary Care - [address] 702131 Carrington Calderon MD [address] [phone] 02/27/2024 8:30 EDT Telemedicine [facility] Sleep Program - [address] [phone] Dwight Colbert [address] [place] [phone] 02/29/2024 10:30 EDT Appointment [facility] Radiology Nuclear Medicine and PET [address] [phone] 02/29/2024 14:30 EDT Appointment [facility] Radiology Nuclear Medicine and PET [address] 1923[address] 03/01/2024 8:00 EDT Appointment [facility] Radiology Nuclear Medicine and PET [address] [address] 03/01/2024 9:30 EDT Appointment [facility] Radiology Nuclear Medicine and PET [address] [phone] documented as of this encounter Visit Diagnoses Not on filedocumented in this encounter
--- OUTSIDE RECORDS SUMMARY | 2024-01-02 06:18 | XMS_ITS | Encounter Summary ---
Author Organization [facility] Address [address] [place] [address] Care Team Providers Care Car Icer Name Role Phone Unavailable Primary Care Provider Unavailabl e Reason for Visit * Reason Comments Telemedicine Video Visit Sore left great toe Foot Swelling Encounter Details Date Type Department Care Team (Late st Contact Info) Description 03/06/2020 16:00 EDT Telemedicine [facility] Adult Primary Care - [address] [address] Moshe Ferrer MD 1 [facility] Level [address] [place] [phone] Cellulitis of great toe of left foot [...] with a trained counselor. [facility] Counseling in [facility] offers free counseling services to residents who are ready to cut back or quit using tobacco. Services include: phone coaching (3-652-MKUE-NOW), online tools and support for those who would like to make changes on their own (www.[employer].org), as well as in-person group workshops. Free nicotine replacement therapy is available through all of these resources. To learn more about your options visit www.[employer].org or call 0-664-PVMP-NOW ( ). To speak with an in-person tobacco counselor in [facility] call, [phone]. [place] Resident, please visit: [email or web address]/ I hope you quit smoking. I think [...] and depression ??? Type 2 diabetes mellitus ([facility]) ??? Chronic left ear pain ??? Family [...] infection can be identified. Moshe Ferrer MD criminal psychologist The concept of ???Telemedicine?? has been described [...] or mental health care. Moshe Ferrer MD criminal psychologist documented in this encounter Plan of Treatment Upcoming Encounters Date Type Department Care Team (Late st Contact Info) Description 02/21/2024 9:45 EDT Office Visit [facility] Adult Primary Care - [address] 575471 Carrington Calderon MD [address] [phone] 02/27/2024 8:30 EDT Telemedicine [facility] Sleep Program - [address] [address] Dwight Colbert [address] [place] [phone] 02/29/2024 10:30 ED[facility] Rad[facility] Nuclear Medicine and PET - [address] 370211 02/29/2024 14:30 EDT Appointment [facility] Radiology Nuclear Medicine and PET - [address] 638141 03/01/2024 8:00 EDT Appointment [facility] Radiology Nuclear Medicine and PET - [address] [phone] 03/01/2024 9:30 EDT [facility]ment [facility] Radiology Nuclear [place] [address] documented as of this encounter Visit Diagnoses Diagnosis Cellulitis of great toe of left foot- Primary Cellulitis and abscess of toe, unspecified documented in this encounter
--- OUTSIDE RECORDS SUMMARY | 2024-01-02 06:18 | XMS_ITS | Encounter Summary ---
Author Organization [facility] Address [address] [place] [address] Care Team Providers Care Paper Tester Name Role Phone Unavailable Primary Care Provider Unavailabl e Reason for Referral * Laboratory Services (Routine/Next Available) - New Request Specialty Diagnoses / Procedures Referred By Contac t Referred To Contact Diagnoses Diabetic foot ulcer ([facility]) Procedures C REACTIVE PROTEIN Mushtaq Light DO [address] [address] Referral ID Status Reason Start Date Expiration Date V isits Requested Visits Authorized [id number] New Request 03/12/2020 1 1 * Laboratory Services (Routine/Next Available) - New Request Specialty Diagnoses / Procedures Referred By Contac t Referred To Contact Diagnoses Diabetic foot ulcer ([facility]) Procedures SED. RATE:Mushtaq Peoples DO [address] [address] Referral ID Status Reason Start Date Expiration Date V isits Requested Visits Authorized [id number] New Request 03/12/2020 1 1 * Laboratory Services (Routine/Next Available) - New Request Specialty Diagnoses / Procedures Referred By Contac t Referred To Contact Diagnoses Diabetic foot ulcer ([facility]) Procedures CREATININE Mushtaq Light DO [address] [phone] Referral ID Status Reason Start Date Expiration Date V isits Requested Visits Authorized [id number] New Request 03/12/2020 1 1 * Laboratory Services (Routine/Next Available) - New Request Specialty Diagnoses / Procedures Referred By Kit goode Referred To Contact Diagnoses Diabetic foot ulcer ([facility]) Procedures COMPLETE BLOOD COUNT AND DIFFERENTIAL Mushtaq Light DO [address] [address] Referral ID Status Reason Start Date Expiration Date V isits Requested Visits Authorized [id number] New Request 03/12/2020 1 1 * Follow Up (Routine/Next Available) - Receiving Office to Obtain Authorization Specialty Diagnoses / Procedures Referred By Kit goode Referred To Contact Podiatry Diagnoses Diabetic foot ulcer ([facility]) Carrington Mari MD [address] [place] [address] [facility] Podiatry [address] [place] [address] Referral ID Status Reason Start Date Expiration Date Visits Requested Visits Authorized [id number] Receiving Office to Obtain Authorization Specialty Services [...] unspecified part of foot, unspecified ulcer stage ([facility]) Referral ID Status Reason Start Date Expiration Date Visits Re quested Visits Authorized [id number] 1 1 Encounter Details Date Type Department Care Team (Late st Contact Info) Description 03/06/2020 18:11 EDT - 03/12/2020 12:07 EDT Hospital Encounter [place] [address] General Medicine Telemetry Unit [address] [place] [address] [id number] Siobhan Hare PA-C [address] [place] [address] [phone] Elise Charles MD [address] [place] [phone] Carrington Padilla MD [address] [place] [address] [phone] Cal Jenkins MBBS [address] [place] [phone] Nate Henderson MD [address] [place] [address] [phone] Diabetic foot ulcer ([facility]) (Primary Dx); Diabetic foot infection ([facility]); Osteomyelitis of great toe of left foot ([facility]); 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, 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 ([facility]) Discharge Disposition: Home-Health Care Svc Social History [...] Osteomyelitis of great toe of left foot ([facility]) Additional Problems Managed in the Hospital Active Hospital Problems Diagnosis Date Noted ??? *Osteomyelitis of great toe of left foot ([facility]) 03/12/2020 ??? Diabetic foot ulcer ([facility]) 03/06/2020 Resolved Hospital Problems No resolved problems [...] Units Date/Time Anaerobe Culture/Smear (inc. aerobes), Other [[id number]] (Abnormal) (Susceptibility) Collected: 03/07/20 1421 Lab Status: Preliminary result Specimen: Bone from Toe Updated: 03/10/20 1751 Organism ID Few Staphylococcus aureus Few Streptococcus agalactiae Few Streptococcus anginosus Moderate Prevotella bivia Smear Few Neutrophils Present Few Gram Positive Cocci Upcoming Appointments 2020 9:30 Office Visit with Elza Navarro DPM [facility] - [place] (--) [address] [facility] [id number] 2020 13:00 Televideo Short with Tonja Plascencia APRN [facility] (--) [address] [facility] [address] Mar 27, 2020 13:30 Televideo Short with Tonja Plascencia [facility] (--) [address] [facility]3] [address] Apr 03, 2020 13:30 Televideo Short with Tonja Plascencia [facility] (--) [address] [facility]3] [address] Apr 10, 2020 13:30 Televideo Short with Tonja Plascencia APRN [facility] (--) [address] [facility]3] [address] Apr 16, 2020 9:30 Televideo Short with Mushtaq Light DO [facility] (--) [address] [facility]3] [id number] Discharge Handoff Communication Following information conveyed to [...] Disposition Code Departure Means Destination Home-Health Care [facility] Home documented in this encounter Progress Notes * Nate Henderson MD - 03/11/2020 5040 EDT Medicine Progress Note Admit Date: 03/06/2020 [...] discuss the patient's care with the physician psychiatric nursing assistant. Nate Henderson MD 03/24/2020 12:46 * [...] questions. * Nate Henderson MD - 03/10/2020 0485 EDT Medicine Progress Note Admit Date: 03/06/2020 [...] discuss the patient's care with the physician psychiatric nursing assistant. Nate Henderson MD 03/24/2020 12:48 * Ranulfo Valverde RN - 03/10/2020 7488 EDT Patient for home on IV antibiotic for a long course. Had discussed this with the pt and her spouse as a possibility last week. As of this time the pt isstill in agreement with home IV medication. She has chosen the [facility] and I have called to the Liaison for the [facility] to give a heads up as they will come into the home for reinforcement of teaching of self administration and will also change the dressing on the PICC line as per their agency protocol. Call to the [facility] and they have confirmed that the pt has 100% coverage from Medicaid. No prior auth needed. Awaiting PICC placement and initial infusion of medication and teaching from [facility] once the pt is ready to go back to home. Case Management will follow to transition. Ranulfo Valverde RN [facility] 0430 * Taj Palomares MD - 03/10/2020 0203 EDT Orthopedic Surgery [...] Results: Anaerobe Culture/Smear (inc. aerobes), Other (Order [id number]) Abnormal Status: Preliminary result (Collected: 03/07/2020 14:21) [...] 9:34 * Carrington Mari MD - 03/08/2020 9051 EDT Orthopaedic Progress Note for 03/08/20 Pt [...] answer calls. Please direct calls to orthopaedics aviation project manager resident for further questions. * Aliya Santizo, [facility] - 03/07/2020 3690 EDT Pharmacy Note: Vancomycin Monitoring Cristy Luo [...] Assessment REASON FOR ADMISSION: Diabetic foot ulcer ([facility]) Patient understands reason for admission: Yes PATIENT [...] FOR FINANCES: TRANSPORTATION: Transportation: Family, Self CULTURAL, TENRIISM and/or LANGUAGE factors affecting health care/discharge planning: [...] Health Services: None DME Provider: Pharmacy: [id number] - [facility] [address] [facility] [address] Home Health: Other: POST HOSPITAL TRANSITION PLAN: Have met with the pt and her this day. She just had a debridement and BX. Awaiting results. Pt and her are both working and raising children. 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 Will await results of the BX and the determination regarding need for medication and specifics related to type, and duration and recommendations for mode of delivery. Case Management will follow for transition. This pt has Medicaid and is capable to having home IV medication if needed. Specifics for finances would need to be confirmed from [facility] most likely if IV is indicated. RANULFO VALVERDE RN CCM 0430 03/07/2020 16:13 * Vicki Phan RN - 03/07/2020 3527 EDT Diabetes Nurse clinician met with Stella for review of SDM handout and diabetes [...] a planning healthy meals folder. Vicki CLARKE channel cementer Nurse Clinician #[id number] * Valencia Antunez - 03/07/2020 0952 EDT [...] attestation - Adair Martinez PA-C - 03/07/2020 1927 EDT I attest that I have reviewed [...] Notes * Carrington Padilla MD - 03/06/2020 8311 EDT Images from the original note were [...] 12/05/19- Spine- told years ago ??? Diabetes ([facility]) A1c 10.3 on 11/28/2019 ??? 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 Review of Systems: Remainder of a ten point review of systems was performed and negative. Past Medical History: has a past medical history of Anxiety, Arthritis, Diabetes ([facility]), Historyof general anesthesia, Nausea & vomiting, Obesity, [...] Lives with her and children. 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 Vital Signs: BP 109/66 (BP Cuff Location: [...] lost to follow-up. 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 She is a current smoker and endorses occasional alcohol and marijuana use. Ambulatory status: ambulates without assistive devices Last meal: 12:30 03/07/20 Past Medical History: Diagnosis Date ??? Anxiety ??? Arthritis 12/05/19- Spine- told years ago ??? Diabetes ([facility]) A1c 10.3 on 11/28/2019 ??? History [...] the day as she works as a preschool assistant Review of Systems: A 10-point review of [...] tolerated the procedure well Assessment: Cristy Luo [id number] Cristy Luo is a 34 y.o. [...] Elise Charles MD - 03/06/20202012 EDT I, Cleestina Francis, am scribing for Miley Charles MD, [...] T2DM with neuropathy who presents to the [facility] PCP's reccomendation, with increased swelling and pain [...] further care. Final diagnoses: Diabetic foot ulcer ([facility]) This documentation is recorded by Celestina Francis [...] as increased swelling. She does have a tombstone erector helper, last saw them in late December. She [...] physician: Araceli Final diagnoses: Diabetic foot ulcer ([facility]) DISPOSITION: Admitted The patient's pain was managed [...] the Emergency Department: Good PCP: Tonja Alejandro [facility] 03/07/2020 12:09 No flowsheet data found. * [...] Care - Aden Sanz RN - 03/11/2020 9957 EDT Problem: GLYCEMIA IMBALANCE Goal: Clinical Indication [...] Plan Goals Description: D: Patient admitted to [facility] @ 2300. Patient's chief complaint is [...] Care - Carrington Mari MD - 03/07/2020 1154 EDT Consulted by medicine to evaluate the patient for diabetic foot wound. The patient was not in her room. According to nursing the patient and her went outside to get fresh air. Orthopedics will evaluate the patient at a later time Carrington Mari * Plan of Care - Marisa Barahona RN - 03/07/2020 0305 EDT D: Patient admitted to [facility] @ 2300. Patient's chief complaint is [...] [facility] - [address] [phone] Carrington Calderon MD 1 [facility] 1 [place] [phone] 02/27/2024 8:30 EDT Telemedicine [facility] Sleep Program - [address] [phone] Dwight Colbert [address] [place] [phone] 02/29/2024 10:30 EDT Appointment [facility] Radiology Nuclear Medicine and PET - [address] [phone] 02/29/2024 14:30 EDT Appointment [facility] Radiology Nuclear Medicine and PET - [address] [id number] 03/01/2024 8:00 EDT Appointment [facility] Radiology Nuclear Medicine and PET - [address] [address] 03/01/2024 9:30 EDT Appointment [facility] Radiology Nuclear Medicine and PET [address] [address] Scheduled Orders Name Type Priority Associated Diagnoses Orde r Schedule COMPLETE BLOOD COUNT AND DIFFERENTIAL Lab Routine Diabetic foot ulcer ([facility]) Ordered: 03/12/2020 CREATININE Lab Routine Diabetic foot ulcer ([facility]) Ordered: 03/12/2020 SED. RATE:WESTERGREN Lab Routine Diabetic foot ulcer ([facility]) Ordered: 03/12/2020 C REACTIVE PROTEIN Lab Routine Diabetic foot ulcer ([facility]) Ordered: 03/12/2020 Scheduled Referrals Name Type Priority Associated Diagnoses Orde r Schedule AMB CONS/FOLLOW UP PODIATRY Outpatient Referral Routine Diabetic foot ulcer ([facility]) Ordered: 03/07/2020 documented as of this encounter [...] EDT) 03/18/2020 10:5 1 EDT Scan 2 Wood Tile Installation Helper PROCEDURE/MINOR BRAULIO GICAL ORDERABLES * ORDERS - SCANNED (03/14/2020 7:54 EDT) 03/14/2020 7:54 EDT Scan 2 Wood Tile Installation Helper ADMISSION ORDERABLE S * (ABNORMAL) POCT GLUCOSE, INTERFACED (03/12/2020 7:40 EDT) Glucose, POC 144(H) 70 - 100 mg/dL 03/12/2020 7:41 EDT [facility] matrix bath attendant ID [id number] 03/12/2020 7:41 EDT [facility] HN LAB POC COMMENT (GLUCOSE) Test Performed by Nursing Services 03/12/2020 7:41 EDT [facility] Blood CAPILLARY BLOOD / Unknown 03/12/2020 7:40 EDT 03/12/2020 7:41 EDT Catherine Booth MD POINT OF CARE TEST ORDERABLES [facility] [address] [place] [address] * (ABNORMAL) POCT GLUCOSE, INTERFACED (03/11/2020 21:39 EDT) Glucose, POC 210(H) 70 - 100 mg/dL 03/11/2020 21:42 EDT [facility] matrix bath attendant ID [id number] 03/11/2020 21:42 EDT [facility] HN LAB POC COMMENT (GLUCOSE) Test Performed by Nursing Services 03/11/2020 21:42 EDT [facility] Blood CAPILLARY BLOOD / Unknown 03/11/2020 21:39 EDT 03/11/2020 21:42 EDT Catherine Booth MD POINT OF CARE TEST ORDERABLES Performing Organization Address [facility] Co de Phone Number [facility] [address] [place] [address] * (ABNORMAL) POCT GLUCOSE, INTERFACED (03/11/2020 17:49 EDT) Glucose, POC 151(H) 70 - 100 mg/dL 03/11/2020 17:53 EDT [facility] matrix bath attendant ID [id number] 03/11/2020 17:53 EDT [facility] HN LAB POC COMMENT (GLUCOSE) Test Performed by Nursing Services 03/11/2020 17:53 EDT [facility] Blood CAPILLARY BLOOD / Unknown 03/11/2020 17:49 EDT 03/11/2020 17:53 EDT Catherine Booth MD POINT OF CARE TEST ORDERABLES Performing Organization Address [facility] de Phone Number [facility] [address] [place] [address] * INSERT PICC LINE (03/11/2020 14:00 EDT) Narrative Nory Ware RN - 03/11/2020 14:00 EDT Nory Ware RN ? 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 NORY WARE RN ?? 03/11/2020 ?? 14:01 Jarrett Gutierrez PA-C IV THERAPY ORDERABL ES * (ABNORMAL) POCT GLUCOSE, INTERFACED (03/11/2020 11:57 EDT) Glucose, POC 185(H) 70 - 100 mg/dL 03/11/2020 12:16 EDT [facility] matrix bath attendant ID [id number] 03/11/2020 12:16 EDT [facility] HN LAB POC COMMENT (GLUCOSE) Test Performed by Nursing Services 03/11/2020 12:16 EDT [facility] Blood CAPILLARY BLOOD / Unknown 03/11/2020 11:57 EDT 03/11/2020 12:16 EDT Catherine Booth MD POINT OF CARE TEST ORDERABLES [facility] [address] [place] [address] * (ABNORMAL) POCT GLUCOSE, INTERFACED (03/11/2020 8:06 EDT) Glucose, POC 110(H) 70 - 100 mg/dL 03/11/2020 14:30 EDT [facility] matrix bath attendant ID [id number] 03/11/2020 14:30 EDT [facility] HN LAB POC COMMENT (GLUCOSE) Test Performed by Nursing Services 03/11/2020 14:30 EDT [facility] Blood CAPILLARY BLOOD / Unknown 03/11/2020 8:06 EDT 03/11/2020 14:30 EDT Catherine Booth MD POINT OF CARE TEST ORDERABLES [facility] [address] [place] [address] * (ABNORMAL) POCT GLUCOSE, INTERFACED (03/10/2020 21:23 EDT) Glucose, POC 185(H) 70 - 100 mg/dL 03/10/2020 21:26 EDT [facility] matrix bath attendant ID [id number] 03/10/2020 21:26 EDT [facility] HN LAB POC COMMENT (GLUCOSE) Test Performed by Nursing Services 03/10/2020 21:26 EDT [facility] Blood CAPILLARY BLOOD / Unknown 03/10/2020 21:23 EDT 03/10/2020 21:26 EDT Catherine Booth MD POINT OF CARE TEST ORDERABLES [facility] [address] [place] [address] * (ABNORMAL) POCT GLUCOSE, INTERFACED (03/10/2020 18:42 EDT) Glucose, POC 154(H) 70 - 100 mg/dL 03/10/2020 18:47 EDT [facility] matrix bath attendant ID [id number] 03/10/2020 18:47 EDT [facility] HN LAB POC COMMENT (GLUCOSE) Test Performed by Nursing Services 03/10/2020 18:47 EDT [facility] Blood CAPILLARY BLOOD / Unknown 03/10/2020 18:42 EDT 03/10/2020 18:47 EDT Catherine Booth MD POINT OF CARE TEST ORDERABLES Performing Organization Address [facility] Co de Phone Number [facility] [address] [place] [address] * (ABNORMAL) POCT GLUCOSE, INTERFACED (03/10/2020 12:24 EDT) Glucose, POC 149(H) 70 - 100 mg/dL 03/10/2020 12:26 EDT [facility] matrix bath attendant ID [id number] 03/10/2020 12:26 EDT [facility] HN LAB POC COMMENT (GLUCOSE) Test Performed by Nursing Services 03/10/2020 12:26 EDT [facility] Blood CAPILLARY BLOOD / Unknown 03/10/2020 12:24 EDT 03/10/2020 12:26 EDT Catherine Booth MD POINT OF CARE TEST ORDERABLES Performing Organization Address [facility]/ZIP Co de Phone Number [facility] [address] [place] [address] * (ABNORMAL) POCT GLUCOSE, INTERFACED (03/10/2020 8:33 EDT) Glucose, POC 126(H) 70 - 100 mg/dL 03/10/2020 8:39 EDT [facility] matrix bath attendant ID [id number] 03/10/2020 8:39 EDT [facility] HN LAB POC COMMENT (GLUCOSE) Test Performed by Nursing Services 03/10/2020 8:39 EDT [facility] Blood CAPILLARY BLOOD / Unknown 03/10/2020 8:33 EDT 03/10/2020 8:39 EDT Catherine Booth MD POINT OF CARE TEST ORDERABLES Performing Organization Address City/[facility]/ZIP Co de Phone Number [facility] [address] [place] [address] * ELECTROLYTES (03/10/2020 7:01 EDT) Sodium 141 136 - 145 mEq/L 03/10/2020 8:04 EDT [facility] Potassium 4.6 3.5 - 5.0 mEq/L 03/10/2020 8:04 EDT [facility] Chloride 103 96 - 110 mEq/L 03/10/2020 8:04 EDT [facility] CO2 Total 29 22 - 32 mEq/L 03/10/2020 8:04 EDT [facility] Blood VENOUS BLOOD / Unknown Venipuncture / Unknown 03/10/2020 7:01 EDT 03/10/2020 7:35 EDT Adair Martinez PA-C CHEMISTRY & BLOOD GA S ORDERABLES [facility] [address] [place] [address] * (ABNORMAL) COMPLETE BLOOD COUNT (03/10/2020 7:01 EDT) WBC 12.33 4.00 - 12.40 K/cmm 03/10/2020 7:42 EDT [facility] RBC 4.61 3.86 - 5.04 M/cmm 03/10/2020 7:42 EDT [facility] Hemoglobin 14.1 11.6 - 15.2 gm/dL 03/10/2020 7:42 EDT [facility] HCT 41.4 34.9 - 44.4 % 03/10/2020 7:42 EDT [facility] MCV 90 81 - 98 fl 03/10/2020 7:42 EDT [facility] MCH 30.6 26.7 - 33.3 pg 03/10/2020 7:42 EDT [facility] MCHC 34.1 32.1 - 35.9 gm/dL 03/10/2020 7:42 EDT [facility] RDW-CV 12.3 <14.7 % 03/10/2020 7:42 EDT [facility] RDW-SD 40.3 <50.4 fl 03/10/2020 7:42 EDT [facility] PLT 424(H) 141 - 377 K/cmm 03/10/2020 7:42 EDT [facility] MPV 9.8 9.5 - 12.7 fl 03/10/2020 7:42 EDT [facility] Blood VENOUS BLOOD / Unknown Venipuncture / Unknown 03/10/2020 7:01 EDT 03/10/2020 7:35 EDT Adair Martinez PA-C HEMATOLOGY & PF4 ORD ERABLES Performing Organization Address City/[facility] Co de Phone Number [facility] [address] [place] [address] * (ABNORMAL) CREATININE (03/10/2020 7:01 EDT) Creatinine 0.50(L) 0.52 - 1.04 mg/dL 03/10/2020 8:04 EDT [facility] eGFR 127 >60 mL/min/1.7 3m2 03/10/2020 8:04 EDT [facility] Comment:eGFR calculated gil g CKD-EPI equation for non- Americans. Multiply eGFR by 1.16 for patients. Blood VENOUS BLOOD / Unknown Venipuncture / Unknown 03/10/2020 7:01 EDT 03/10/2020 7:35 EDT Adair Martinez PA-C CHEMISTRY & BLOOD GA S ORDERABLES Performing Organization Address [facility] Co de Phone Number [facility] [address] [place] [address] * (ABNORMAL) POCT GLUCOSE, INTERFACED (03/09/2020 22:50 EDT) Glucose, POC 150(H) 70 - 100 mg/dL 03/09/2020 22:51 EDT [facility] matrix bath attendant ID [id number] 03/09/2020 22:51 EDT [facility] HN LAB POC COMMENT (GLUCOSE) Test Performed by Nursing Services 03/09/2020 22:51 EDT [facility] Blood CAPILLARY BLOOD / Unknown 03/09/2020 22:50 EDT 03/09/2020 22:51 EDT Catherine Booth MD POINT OF CARE TEST ORDERABLES Performing Organization Address City/State/[facility] Co de Phone Number [facility] [address] [place] [address] * MR FOOT W WO CONTRAST LEFT [...] andagree with the findings. Adair Martinez PA-C IMRubia MRI ORDERABLES * (ABNORMAL) POCT GLUCOSE, INTERFACED (03/09/2020 17:21 EDT) Glucose, POC 201(H) 70 - 100 mg/dL 03/09/2020 17:22 EDT [facility] matrix bath attendant ID [id number] 03/09/2020 17:22 EDT [facility] HN LAB POC COMMENT (GLUCOSE) Test Performed by Nursing Services 03/09/2020 17:22 EDT [facility] Blood CAPILLARY BLOOD / Unknown 03/09/2020 17:21 EDT 03/09/2020 17:22 EDT Catherine Booth MD POINT OF CARE TEST ORDERABLES Performing Organization Address City/[facility]/ZIP Co de Phone Number [facility] [address] [place] [address] * (ABNORMAL) POCT GLUCOSE, INTERFACED (03/09/2020 13:23 EDT) Glucose, POC 178(H) 70 - 100 mg/dL 03/09/2020 13:24 EDT [facility] matrix bath attendant ID [id number] 03/09/2020 13:24 EDT [facility] HN LAB POC COMMENT (GLUCOSE) Test Performed by Nursing Services 03/09/2020 13:24 EDT [facility] Blood CAPILLARY BLOOD / Unknown 03/09/2020 13:23 EDT 03/09/2020 13:24 EDT Catherine Booth MD POINT OF CARE TEST ORDERABLES [facility] [address] [place] [address] * (ABNORMAL) POCT GLUCOSE, INTERFACED (03/09/2020 8:38 EDT) Glucose, POC 108(H) 70 - 100 mg/dL 03/09/2020 8:43 EDT [facility] matrix bath attendant ID [id number] 03/09/2020 8:43 EDT [facility] HN LAB POC COMMENT (GLUCOSE) Test Performed by Nursing Services 03/09/2020 8:43 EDT [facility] Blood CAPILLARY BLOOD / Unknown 03/09/2020 8:38 EDT 03/09/2020 8:43 EDT Catherine Booth MD POINT OF CARE TEST ORDERABLES [facility] [address] [place] [address] * (ABNORMAL) POCT GLUCOSE, INTERFACED (03/08/2020 20:52 EDT) Glucose, POC 122(H) 70 - 100 mg/dL 03/08/2020 20:58 EDT [facility] matrix bath attendant ID [id number] 03/08/2020 20:58 EDT [facility] HN LAB POC COMMENT (GLUCOSE) Test Performed by Nursing Services 03/08/2020 20:58 EDT [facility] Blood CAPILLARY BLOOD / Unknown 03/08/2020 20:52 EDT 03/08/2020 20:58 EDT Catherine Booth MD POINT OF CARE TEST ORDERABLES Performing Organization Address City/[facility]/ZIP Co de Phone Number [facility] [address] [place] [address] * POCT GLUCOSE, INTERFACED (03/08/2020 17:44 EDT) Glucose, POC 99 70 - 100 mg/dL 03/08/2020 17:44 EDT [facility] matrix bath attendant ID [id number] 03/08/2020 17:44 EDT [facility] HN LAB POC COMMENT (GLUCOSE) Test Performed by Nursing Services 03/08/2020 17:44 EDT [facility] Blood CAPILLARY BLOOD / Unknown 03/08/2020 17:44 EDT 03/08/2020 17:44 EDT Catherine Booth MD POINT OF CARE TEST ORDERABLES Performing Organization Address City/[facility]/ZIP Co de Phone Number [facility] [address] [place] [address] * (ABNORMAL) POCT GLUCOSE, INTERFACED (03/08/2020 13:15 EDT) Glucose, POC 142(H) 70 - 100 mg/dL 03/08/2020 13:16 EDT [facility] matrix bath attendant ID [id number] 03/08/2020 13:16 EDT [facility] HN LAB POC COMMENT (GLUCOSE) Test Performed by Nursing Services 03/08/2020 13:16 EDT [facility] Blood CAPILLARY BLOOD / Unknown 03/08/2020 13:15 EDT 03/08/2020 13:16 EDT Catherine Booth MD POINT OF CARE TEST ORDERABLES Performing Organization Address City/[facility]/ZIP Co de Phone Number [facility] [address] [place] [address] * (ABNORMAL) POCT GLUCOSE, INTERFACED (03/08/2020 7:45 EDT) Glucose, POC 176(H) 70 - 100 mg/dL 03/08/2020 7:47 EDT [facility] matrix bath attendant ID [id number] 03/08/2020 7:47 EDT [facility] HN LAB POC COMMENT (GLUCOSE) Test Performed by Nursing Services 03/08/2020 7:47 EDT [facility] Blood CAPILLARY BLOOD / Unknown 03/08/2020 7:45 EDT 03/08/2020 7:47 EDT Catherine Booth MD POINT OF CARE TEST ORDERABLES [facility] [address] [place] [address] * (ABNORMAL) CREATININE (03/08/2020 7:20 EDT) Creatinine 0.42(L) 0.52 - 1.04 mg/dL 03/08/2020 9:12 EDT [facility] eGFR 134 >60 mL/min/1.7 3m2 03/08/2020 9:12 EDT [facility] Comment:eGFR calculated gil curtis CKD-EPI equation for non- Americans. Multiply eGFR by 1.16 for patients. Blood VENOUS BLOOD / Unknown Venipuncture / Unknown 03/08/2020 7:20 EDT 03/08/2020 8:43 EDT Adair Martinez PA-C CHEMISTRY & BLOOD GA S ORDERABLES Performing Organization Address City/[facility] Co de Phone Number [facility] [address] [place] [address] * ELECTROLYTES (03/08/2020 7:20 EDT) Sodium 139 136 - 145 mEq/L 03/08/2020 9:12 EDT [facility] Potassium 4.6 3.5 - 5.0 mEq/L 03/08/2020 9:12 EDT [facility] Chloride 105 96 - 110 mEq/L 03/08/2020 9:12 EDT [facility] CO2 Total 25 22 - 32 mEq/L 03/08/2020 9:12 EDT [facility] Blood VENOUS BLOOD / Unknown Venipuncture / Unknown 03/08/2020 7:20 EDT 03/08/2020 8:43 EDT Adair Martinez PA-C CHEMISTRY & BLOOD GA S ORDERABLES [facility] [address] [place] [address] * (ABNORMAL) COMPLETE BLOOD COUNT (03/08/2020 7:20 EDT) WBC 11.24 4.00 - 12.40 K/cmm 03/08/2020 8:25 EDT [facility] RBC 4.29 3.86 - 5.04 M/cmm 03/08/2020 8:25 EDT [facility] Hemoglobin 13.2 11.6 - 15.2 gm/dL 03/08/2020 8:25 EDT [facility] HCT 37.9 34.9 - 44.4 % 03/08/2020 8:25 EDT [facility] MCV 88 81 - 98 fl 03/08/2020 8:25 EDT [facility] MCH 30.8 26.7 - 33.3 pg 03/08/2020 8:25 EDT [facility] MCHC 34.8 32.1 - 35.9 gm/dL 03/08/2020 8:25 EDT [facility] RDW-CV 12.3 <14.7 % 03/08/2020 8:25 EDT [facility] RDW-SD 39.5 <50.4 fl 03/08/2020 8:25 EDT [facility] PLT 406(H) 141 - 377 K/cmm 03/08/2020 8:25 EDT [facility] MPV 9.9 9.5 - 12.7 fl 03/08/2020 8:25 EDT [facility] Blood VENOUS BLOOD / Unknown Venipuncture / Unknown 03/08/2020 7:20 EDT 03/08/2020 8:11 EDT Adair Martinez PA-C HEMATOLOGY & PF4 ORD ERABLES [facility] [address] [place] [address] * VANCOMYCIN TROUGH (03/07/2020 21:29 EDT) Pathologist [facility] Vancomycin Trough 13.0 10.0 - 20.0 ug/mlL 03/07/2020 22:02 EDT [facility] Draw Type Not Given 03/07/2020 22:02 EDT [facility] Blood VENOUS BLOOD / Unknown Venipuncture / Unknown 03/07/2020 21:29 EDT 03/07/2020 21:33 EDT Cal GARIBAY CHEMISTRY & BLOOD GAS ORDERABLES Performing Organization Address City/[facility]/ZIP Co de Phone Number [facility] [address] [place] [address] * (ABNORMAL) POCT GLUCOSE, INTERFACED (03/07/2020 21:25 EDT) Glucose, POC 105(H) 70 - 100 mg/dL 03/07/2020 21:30 EDT [facility] matrix bath attendant ID [id number] 03/07/2020 21:30 EDT [facility] HN LAB POC COMMENT (GLUCOSE) Test Performed by Nursing Services 03/07/2020 21:30 EDT [facility] Blood CAPILLARY BLOOD / Unknown 03/07/2020 21:25 EDT 03/07/2020 21:30 EDT Catherine Booth MD POINT OF CARE TEST ORDERABLES Performing Organization Address City/[facility]/ZIP Co de Phone Number [facility] [address] [place] [address] * (ABNORMAL) POCT GLUCOSE, INTERFACED (03/07/2020 17:40 EDT) Glucose, POC 196(H) 70 - 100 mg/dL 03/07/2020 18:59 EDT [facility] matrix bath attendant ID [id number] 03/07/2020 18:59 EDT [facility] HN LAB POC COMMENT (GLUCOSE) Test Performed by Nursing Services 03/07/2020 18:59 EDT [facility] Blood CAPILLARY BLOOD / Unknown 03/07/2020 17:40 EDT 03/07/2020 18:59 EDT Catherine Booth MD POINT OF CARE TEST ORDERABLES Performing Organization Address City/[facility]/ZIP Co de Phone Number [facility] [address] [place] [address] * (ABNORMAL) ANAEROBE CULTURE/SMEAR(INC. AEROBES), OTHER (03/07/2020 14:21 EDT) Organism ID Few Staphylococcus aureus(A) 03/13/2020 7:50 EDT [facility] Comment:Susceptible to nafci llin, cephalosporins and other beta lactam antibiotics (mecA gene product absent). Organism ID Few Streptococcus agalactiae(A) 03/13/2020 7:50 EDT [facility] Comment:Penicillin and ampic illin are drugs of choice for treatment of beta hemolytic streptococcal infections. Organism ID Few Streptococcus anginosus(A) 03/13/2020 7:50 EDT [facility] Organism ID Moderate Prevotella bivia(A) 03/13/2020 7:50 EDT [facility] Smear Few Neutrophils Present(A) 03/13/2020 7:50 EDT [facility] Smear Few Gram Positive Cocci(A) 03/13/2020 7:50 EDT [facility] Bone ENTIRE TOE / [...] Martinez PA-C MICROBIOLOGY - GENER AL ORDERABLES Performing Organization Address City/State/[facility] Co de Phone Number [facility] [address] [place] [address] * XR FOOT LEFT 3 OR MORE [...] 70 - 100 mg/dL 03/07/2020 12:26 EDT [facility] matrix bath attendant ID [id number] 03/07/2020 12:26 EDT [facility] HN LAB POC COMMENT (GLUCOSE) Test Performed by Nursing Services 03/07/2020 12:26 EDT [facility] Blood CAPILLARY BLOOD / Unknown 03/07/2020 12:23 EDT 03/07/2020 12:26 EDT Cal GARIBAY POINT OF CAR E TEST ORDERABLES [facility] [address] [place] [address] * (ABNORMAL) POCT GLUCOSE, INTERFACED (03/07/2020 11:11 EDT) Glucose, POC 187(H) 70 - 100 mg/dL 03/07/2020 11:21 EDT [facility] matrix bath attendant ID [id number] 03/07/2020 11:21 EDT [facility] HN LAB POC COMMENT (GLUCOSE) Test Performed by Nursing Services 03/07/2020 11:21 EDT [facility] Blood CAPILLARY BLOOD / Unknown 03/07/2020 11:11 EDT 03/07/2020 11:21 EDT Catherine Booth MD POINT OF CARE TEST ORDERABLES Performing Organization Address [facility]/ZIP Co de Phone Number [facility] [address] [place] [address] * (ABNORMAL) POCT GLUCOSE, INTERFACED (03/07/2020 7:37 EDT) Glucose, POC 157(H) 70 - 100 mg/dL 03/07/2020 7:41 EDT [facility] matrix bath attendant ID [id number] 03/07/2020 7:41 EDT [facility] HN LAB POC COMMENT (GLUCOSE) Test Performed by Nursing Services 03/07/2020 7:41 EDT [facility] Blood CAPILLARY BLOOD / Unknown 03/07/2020 7:37 EDT 03/07/2020 7:41 EDT Catherine Booth MD POINT OF CARE TEST ORDERABLES Performing Organization Address City/[facility]/ZIP Co de Phone Number [facility] [address] [place] [address] * ELECTROLYTES (03/07/2020 7:02 EDT) Sodium 138 136 - 145 mEq/L 03/07/2020 8:22 EDT [facility] Potassium 4.2 3.5 - 5.0 mEq/L 03/07/2020 8:22 EDT [facility] Chloride 103 96 - 110 mEq/L 03/07/2020 8:22 EDT [facility] CO2 Total 27 22 - 32 mEq/L 03/07/2020 8:22 EDT [facility] Blood VENOUS BLOOD / Unknown Venipuncture / Unknown 03/07/2020 7:02 EDT 03/07/2020 7:46 EDT Catherine Booth MD CHEMISTRY & BLOOD GAS ORDERABLES Performing Organization Address City/[facility]/ZIP Co de Phone Number [facility] [address] [place] [address] * (ABNORMAL) CREATININE (03/07/2020 7:02 EDT) Creatinine 0.44(L) 0.52 - 1.04 mg/dL 03/07/2020 8:22 EDT [facility] eGFR 132 >60 mL/min/1.7 3m2 03/07/2020 8:22 EDT [facility] Comment:eGFR calculated gil curtis CKD-EPI equation for non- Americans. Multiply eGFR by 1.16 for patients. Blood VENOUS BLOOD / Unknown Venipuncture / Unknown 03/07/2020 7:02 EDT 03/07/2020 7:46 EDT Catherine Booth MD CHEMISTRY & BLOOD GAS ORDERABLES Performing Organization Address City/[facility]/ZIP Co de Phone Number [facility] [address] [place] [id number] * BUN (03/07/2020 7:02 EDT) BUN 10 10 - 26 mg/dL 03/07/2020 8:22 EDT [facility] Blood VENOUS BLOOD / Unknown Venipuncture / Unknown 03/07/2020 7:02 EDT 03/07/2020 7:46 EDT Catherine Booth MD CHEMISTRY & BLOOD GAS ORDERABLES Performing Organization Address City/[facility]/ZIP Co de Phone Number [facility] [address] [place] [address] * (ABNORMAL) COMPLETE BLOOD COUNT (03/07/2020 7:02 EDT) WBC 11.29 4.00 - 12.40 K/cmm 03/07/2020 7:55 T [facility] RBC 4.29 3.86 - 5.04 M/cmm 03/07/2020 7:55 [facility] Hemoglobin 13.0 11.6 - 15.2 gm/dL 03/07/2020 7:55 [facility] HCT 37.2 34.9 - 44.4 % 03/07/2020 7:55 [facility] MCV 87 81 - 98 fl 03/07/2020 7:55 [facility] MCH 30.3 26.7 - 33.3 pg 03/07/2020 7:55 [facility] MCHC 34.9 32.1 - 35.9 gm/dL 03/07/2020 7:55 [facility] RDW-CV 12.2 <14.7 % 03/07/2020 7:55 [facility] RDW-SD 38.5 <50.4 fl 03/07/2020 7:55 [facility] PLT 387(H) 141 - 377 K/cmm 03/07/2020 7:55 [facility] MPV 10.0 9.5 - 12.7 fl 03/07/2020 7:55 [facility] Blood VENOUS BLOOD / Unknown Venipuncture / Unknown 03/07/2020 7:02 EDT 03/07/2020 7:49 EDT Catherine Booth MD HEMATOLOGY & PF4 O RDERABLES [facility] [address] [place] [address] * (ABNORMAL) POCT GLUCOSE, INTERFACED (03/06/2020 23:53 EDT) Glucose, POC 262(H) 70 - 100 mg/dL 03/06/2020 23:57 EDT [facility] matrix bath attendant ID [id number] 03/06/2020 23:57 EDT [facility] HN LAB POC COMMENT (GLUCOSE) Test Performed by Nursing Services 03/06/2020 23:57 EDT [facility] Blood CAPILLARY BLOOD / Unknown 03/06/2020 23:53 EDT 03/06/2020 23:57 EDT Carrington Padilla MD POINT OF CARE TEST ORDERABLES Performing Organization Address [facility] Co de Phone Number [facility] [address] [place] [address] * COVID-19 TEST [facility] PCR (03/06/2020 22:00 EDT) Swab ENTIRE NASOPHARYNX / Unknown Swab / Unknown 03/06/2020 22:00 EDT 03/06/2020 22:05 EDT Siobhan Hare PA-C MICROBIOLOGY - GENERAL ORDERABLES Performing Organization Address [facility] Co de Phone Number [facility] [address] [place] [address] * COVID-19 TESTING (03/06/2020 22:00 EDT) COVID-19 rt-PCR Result Negative Negative 03/07/2020 1:27 EDT [facility] Comment: This test has [...] history, and epidemiological information. Performed on the Jeeran Kamas Fusion instrument Performing Lab Kamas [facility] 03/07/2020 1:27 EDT [facility] Swab ENTIRE NASOPHARYNX / Unknown Swab / Unknown 03/06/2020 22:00 EDT 03/06/2020 22:05 EDT Siobhan Hare PA-C MICROBIOLOGY - GENERAL ORDERABLES [facility] [address] [place] [address] * (ABNORMAL) FRUCTOSAMINE (03/06/2020 19:26 EDT) Fructosamine, S 360(H) 200 - 285 mcmol/L 03/09/2020 8:44 EDT [facility] Comment: Test Performed by: [facility] - [address] [address] Mortgage Branch Manager: Wiley Fry M.D. Ph.D.; CLIA# [id number] Blood VENOUS BLOOD / Unknown Venipuncture / Unknown 03/06/2020 19:26 EDT 03/06/2020 19:48 EDT Catherine Booth MD CHEMISTRY & BLOOD GAS ORDERABLES Performing Organization Address [facility] Co de Phone Number [facility] [address] [place] [address] * (ABNORMAL) HEMOGLOBIN A1C (03/06/2020 19:26 EDT) Hemoglobin A1c 10.4(H) <5.7 % 03/07/2020 8:23 EDT [facility] Comment: Glycemic Status References: [...] Avg Glucose 252 mg/dL 0 8:23 EDT [facility] Comment:The eAG represents t he A1c result expressed as average glucose in mg/dL. Blood VENOUS BLOOD / Unknown Venipuncture / Unknown 03/06/2020 19:26 EDT 03/06/2020 19:48 EDT Catherine Booth MD CHEMISTRY & BLOOD GAS ORDERABLES Performing Organization Address [facility] Co de Phone Number [facility] [address] [place] [address] * (ABNORMAL) SED. RATE:WESTERGREN (03/06/2020 19:26 EDT) Sed Rate 25(H) 0 - 20 mm/hr 03/06/2020 23:03 EDT [facility] Blood VENOUS BLOOD / Unknown Venipuncture / Unknown 03/06/2020 19:26 EDT 03/06/2020 19:48 EDT Siobhan Hare PA-C HEMATOLOGY & PF4 ORDERABLES Performing Organization Address [facility] Co de Phone Number [facility] [address] [place] [address] * (ABNORMAL) C REACTIVE PROTEIN (03/06/2020 19:26 EDT) C-Reactive Protein 27.7(H) <10.0 mg/L 03/06/2020 20:12 EDT [facility] Blood VENOUS BLOOD / Unknown Venipuncture / Unknown 03/06/2020 19:26 EDT 03/06/2020 19:48 EDT Siobhan Hare PA-C CHEMISTRY & BLOOD GAS ORDERABLES [facility] [address] [place] [address] * (ABNORMAL) COMPREHENSIVE METABOLIC PANEL (CMP) (03/06/2020 19:26 EDT) Sodium 139 136 - 145 mEq/L 03/06/2020 20:12 [facility] Potassium 4.2 3.5 - 5.0 mEq/L 03/06/2020 20:12 [facility] Chloride 101 96 - 110 mEq/L 03/06/2020 20:12 [facility] CO2 Total 27 22 - 32 mEq/L 03/06/2020 20:12 [facility] Glucose 186(H) 70 - 100 mg/dL 03/06/2020 20:12 [facility] BUN 13 10 - 26 mg/dL 03/06/2020 20:12 [facility] Creatinine 0.49(L) 0.52 - 1.04 mg/dL 03/06/2020 20:12 [facility] eGFR 128 >60 mL/min/1.7 3m2 03/06/2020 20:12 [facility] Comment:eGFR calculated gil curtis CKD-EPI equation for non- Americans. Multiply eGFR by 1.16 for patients. Total Protein 7.4 6.3 - 8.2 g/dL 03/06/2020 20:12 [facility] Albumin 4.2 3.4 - 4.9 g/dL 03/06/2020 20:12 [facility] Alkaline Phosphatase 108 38 - 126 U/L 03/06/2020 20:12 [facility] AST 18 15 - 46 U/L 03/06/2020 20:12 [facility] ALT 12 <35 U/L 03/06/2020 20:12 [facility] Bilirubin, Total <0.5 <1.4 mg/dL 03/06/20 20 20:12 [facility] Calcium 9.9 8.5 - 10.5 mg/dL 03/06/2020 20:12 [facility] Calculated Calcium 9.7 8.5 - 10.5 mg/dL 03/06/2020 20:12 [facility] Blood VENOUS BLOOD / Unknown Venipuncture / Unknown 03/06/2020 19:26 EDT 03/06/2020 19:48 EDT Siobhan Hare PA-C CHEMISTRY & BLOOD GAS ORDERABLES [facility] [address] [place] [address] * (ABNORMAL) COMPLETE BLOOD COUNT AND DIFFERENTIAL (03/06/2020 19:26 EDT) WBC 16.83(H) 4.00 - 12.40 K/cmm 03/06/2020 19:57 [facility] RBC 4.66 3.86 - 5.04 M/cmm 03/06/2020 19:57 [facility] Hemoglobin 14.1 11.6 - 15.2 gm/dL 03/06/2020 19:57 [facility] HCT 40.6 34.9 - 44.4 % 03/06/2020 19:57 [facility] MCV 87 81 - 98 fl 03/06/2020 19:57 [facility] MCH 30.3 26.7 - 33.3 pg 03/06/2020 19:57 [facility] MCHC 34.7 32.1 - 35.9 gm/dL 03/06/2020 19:57 [facility] RDW-CV 12.2 <14.7 % 03/06/2020 19:57 [facility] RDW-SD 39.2 <50.4 fl 03/06/2020 19:57 [facility] PLT 458(H) 141 - 377 K/cmm 03/06/2020 19:57 [facility] [facility] MPV 9.7 9.5 - 12.7 fl 03/06/2020 19:57 [facility] % Neutrophils 62.7 % 03/06/2020 19:57 [facility] % Lymphocytes 27.5 % 03/06/2020 19:57 T [facility] % Monocytes 6.8 % 03/06/2020 19:57 [facility] % Eosinophils 2.2 % 03/06/2020 19:57 [facility] % Basophils 0.4 % 03/06/2020 19:57 [facility] % Immature Grans 0.4 % 03/06/20 19:57 [facility] Absolute Neutrophils 10.55(H) 2.20 - 8.85 K/cmm 03/06/2020 19:57 [facility] Absolute Lymphocytes 4.62(H) 1.09 - 3.30 K/cmm 03/06/2020 19:57 [facility] Absolute Monocytes 1.15(H) 0.10 - 0.80 K/cmm 03/06/2020 19:57 [facility] Absolute Eosinophils 0.37 0.03 - 0.61 K/cmm 03/06/2020 19:57 [facility] Basophils 0.07 0.01 - 0.11 K/cmm 03/06/2020 19:57 [facility] Absolute Immature Grans 0.07(H) 0.00 - 0.06 K/cmm 03/06/2020 19:57 [facility] Type of Differential: Auto 03/06/2020 19:57 [facility] Blood VENOUS BLOOD / Unknown Venipuncture / Unknown 03/06/2020 19:26 EDT 03/06/2020 19:48 EDT Siobhan Hare PA-C PACKAGES & D NA PROBE ORDERABLES [facility] [address] [place] [address] documented in this encounter Visit Diagnoses Diagnosis [...] subcutaneous, EVERY 12 HOURS, First dose on Tue03/06/20 at 2245, Until Discontinued, Routine Given 03/07/2020 [...] dose, Starting on Tue03/09/20 at 2229, Until Tue03/09/20 at 2229, Routine, Imaging Protocol Orders Given [...] Aden Sanz RN)1608 (Given - Provider: Quincy Huston, MARCELO) 0103 (Given - Provider: Mallorie Hayward, MARCELO)0837 (Given - Provider: Jesica Sandy RN) enoxaparin [...] Aden Sanz RN)1800 (Given - Provider: Quincy Huston, MARCELO) 0852 (Given - Provider: Jesica Sandy RN)1200 [...] RN - Reason: Order parameters not met) 223 (Not Given - Provider: Mallorie Hayward RN [...] 2100, Routine 0857 (Given - Provider: Aden Sanz RN)212 (Given - Provider: Mallorie Hayward RN) 0843 (Given - Provider: Aden Sanz, MARCELO) metroNIDAZOLE (FLAGYL) tablet 500 mg 500 mg, oral, EVERY 8 HOURS, 21 doses, First dose (after last modification) on Tue03/11/20 at 1600, Last dose on Tue03/18/20 at 0800, Routine 1607 (Given - Provider: Quincy Huston, MARCELO)2237 (Given - Provider: Mallorie Hayward RN) 0835 (Given - Provider: Jesica Sandy, MARCELO) sodium chloride 0.9 % (flush) flush 10 mL 10 mL, intercatheter, WEEKLY, First dose on Tue03/11/20 at 1430, Until Discontinued, Routine 1612 (Given - Provider: Quincy Huston, MARCELO) PRN Medication Order 03/10/2020 03/11/2020 03/12/2020 acetaminophen [...] mg 1 mg, intramuscular, PRN, Starting on Tue03/06/20 at 2334, Until Tue03/12/20 at 1407, Low [...]
--- OUTSIDE RECORDS SUMMARY | 2024-01-02 06:18 | XMS_ITS | Encounter Summary ---
Author Organization [facility] Address [address] [place] [address] Care Team Providers Care Decision Support Manager Name Role Phone Unavailable Primary Care Provider Unavailabl e Encounter Details Date Type Department Care Team ([facility] Contact Info) Description 03/17/2020 Documentation Visit [facility] - [address] [place], [place] [address] Marcel Bustamante Social History Tobacco Use Types [...] MORALES RN 03/17/2020 14:59 * [place], [facility] - 03/17/2020 1217 EDT Patient: Cristy Luo [...] [facility] - [address] [phone] Carrington Calderon MD [address] [phone] 02/27/2024 8:30 EDT Telemedicine [facility] Sleep Program - [address] [phone] Dwight Colbert [address] [place] [address] [phone] 02/29/2024 10:30 EDT [facility] Rad[facility] Nuclear Medicine and PET - [address] [address] 02/29/2024 14:30 EDT [facility] Radiology Nuclear Medicine and PET - [address] [phone] 03/01/2024 8:00 EDT [facility] Radiology Nuclear Medicine and PET - [address] [phone] 03/01/2024 9:30 EDT [facility] Rad[facility] Nuclear Medicine and PET [address] [phone] documented as of this encounter Visit Diagnoses Not on filedocumented in this encounter
--- OUTSIDE RECORDS SUMMARY | 2024-01-02 06:18 | XMS_ITS | Encounter Summary ---
Author Organization [facility] Address [address] [place] [address] Care Team Providers Care Region Manager Name Role Phone Unavailable Primary Care Provider Unavailabl e Reason for Visit * Reason Comments Telemedicine Video Visit Encounter Details Date Type Department Care Team (Late st Contact Info) Description 2020 13:00 EDT Telemedicine [facility] Infectious Disease - [address] [phone] Tonja Plascencia, GUSTAVO [address] [facility], [address] [place] [address] Diabetic foot infection ([facility]) (Primary Dx) Social History Tobacco Use [...] encounter visit: Tonja Plascencia ?? Patient location: [facility]town, State: [place] Estimated driving distance from [place]: 25 miles. Demographics HPI: Cristy Luo [...] [facility] Adult Primary Care - [address] 704361 Carrington Calderon MD [address] [phone] 02/27/2024 8:30 EDT Telemedicine [facility] Sleep Program - [address] 892111 Dwight Colbert [address] [place] [address] [phone] 02/29/2024 10:30 EDT Appointment [facility] Radiology Nuclear Medicine and PET - [address] [id number] 02/29/2024 14:30 EDT Appointment [facility] Radiology Nuclear Medicine and PET - [address] [phone] 03/01/2024 8:00 EDT Appointment [facility] Radiology Nuclear Medicine and PET - [facility] [address] [place] [address] 03/01/2024 9:30 EDT Appointment [facility] Radiology Nuclear Medicine and PET - [address] [address] documented as of this encounter Visit Diagnoses Diagnosis Diabetic foot infection ([facility])- Primary Type II or unspecified type diabetes mellitus with other specified manifestations, not stated as uncontrolled documented in this encounter
--- OUTSIDE RECORDS SUMMARY | 2024-01-02 06:18 | XMS_ITS | Encounter Summary ---
Author Organization [facility] Address [address] [place] [address] Care Team Providers Care Sales Development Executive Name Role Phone Carrington Calderon MD Primary Care Provi anders Abigail Díaz Unavailable Carmelo Hendrickson Unavailable Unavailable Encounter Details Date Type Department Care Team (Late st Contact Info) Description 03/18/2020 Lab Requisition [facility] Pathology & Laboratory Medicine - [address] [address] Mushtaq Light, DO 111 [facility], Level [address] [place] [address] Encounter for other general examination [...] [facility] - [address] [phone] Carrington Calderon MD 1 [facility] 1 [place] [phone] 02/27/2024 8:30 EDT Telemedicine [facility] Sleep Program - [address] [address] Dwight Colbert [address] [place] [phone] 02/29/2024 10:30 EDT Appointment [facility] Radiology Nuclear Medicine and PET [address] 728001 02/29/2024 14:30 EDT Appointment [facility] Radiology Nuclear Medicine and PET [address] [phone] 03/01/2024 8:00 EDT Appointment [facility] Radiology Nuclear Medicine and PET [address] [phone] 03/01/2024 9:30 EDT Appointment [facility] Radiology Nuclear Medicine and PET [address] [phone] documented as of this encounter Procedures Procedure [...] this encounter Results * (ABNORMAL) SED. RATE:MARLYN (03/18/2020 10:35 EDT) Sed Rate 37(H) 0 - 20 mm/hr 03/18/2020 18:51 EDT [facility] Comment:Note: Sample greater than 4 hours old (but less than 12 hours) when tested. If refrigerated, sample is stable when tested within 12 hours of collection. Blood VENOUS BLOOD / Unknown Non-Lab Collect / Unknown 03/18/2020 10:35 EDT 03/18/2020 16:41 EDT Mushtaq Light DO HEMATOLOGY & PF4 OR DERABLES [facility] [address] [place] [address] * (ABNORMAL) COMPLETE BLOOD COUNT AND DIFFERENTIAL (03/18/2020 10:35 EDT) WBC 11.64 4.00 - 12.40 K/cmm 03/18/2020 17:17 [facility] RBC 4.54 3.86 - 5.04 M/cmm 03/18/2020 17:17 [facility] Hemoglobin 13.9 11.6 - 15.2 gm/dL 03/18/2020 17:17 [facility] HCT 40.9 34.9 - 44.4 % 03/18/2020 17:17 [facility] MCV 90 81 - 98 fl 03/18/2020 17:17 [facility] MCH 30.6 26.7 - 33.3 pg 03/18/2020 17:17 [facility] MCHC 34.0 32.1 - 35.9 gm/dL 03/18/2020 17:17 [facility] RDW-CV 12.4 <14.7 % 03/18/2020 17:17 [facility] RDW-SD 40.8 <50.4 fl 03/18/2020 17:17 [facility] PLT 462(H) 141 - 377 K/cmm 03/18/2020 17:17 [facility] MPV 10.5 9.5 - 12.7 fl 03/18/2020 17:17 [facility] % Neutrophils 55.0 % 03/18/2020 17:17 [facility] % Lymphocytes 33.0 % 03/18/2020 17:17 [facility] % Monocytes 7.4 % 03/18/2020 17:17 [facility] % Eosinophils 3.4 % 03/18/2020 17:17 [facility] % Basophils 0.7 % 03/18/2020 17:17 [facility] % Immature Grans 0.5 % 03/18/20 20 17:17 [facility] Absolute Neutrophils 6.41 2.20 - 8.85 K/cmm 03/18/2020 17:17 [facility] Absolute Lymphocytes 3.84(H) 1.09 - 3.30 K/cmm 03/18/2020 17:17 [facility] Absolute Monocytes 0.86(H) 0.10 - 0.80 K/cmm 03/18/2020 17:17 [facility] Absolute Eosinophils 0.39 0.03 - 0.61 K/cmm 03/18/2020 17:17 [facility] ABS Basophils 0.08 0.01 - 0.11 K/cmm 03/18/2020 17:17 [facility] Absolute Immature Grans 0.06 0.00 - 0.06 K/cmm 03/18/2020 17:17 [facility] Type of Differential: Auto 03/18/2020 17:17 [facility] Blood VENOUS BLOOD / Unknown Non-Lab Collect / Unknown 03/18/2020 10:35 EDT 03/18/2020 16:41 EDT Mushtaq Light DO PACKAGES & DNA PROB E ORDERABLES [facility] [address] [place] [address] * (ABNORMAL) CREATININE (03/18/2020 10:35 EDT) Creatinine 0.41(L) 0.52 - 1.04 mg/dL 03/18/2020 17:17 T [facility] eGFR 135 >60 mL/min/1.7 3m2 03/18/2020 17:17 [facility] Comment:eGFR calculated gil curtis CKD-EPI equation for non- Americans. Multiply eGFR by 1.16 for patients. Blood VENOUS BLOOD / Unknown Non-Lab Collect / Unknown 03/18/2020 10:35 EDT 03/18/2020 16:41 EDT Mushtaq J Kerr DO CHEMISTRY & BLOOD G ORDERABLES Performing Organization Address City/[facility] Co de Phone Number [facility] [address] [place] [address] * C REACTIVE PROTEIN (03/18/2020 10:35 EDT) C-Reactive Protein <7.0 <10.0 mg/L 03/18/2020 17:17 EDT [facility] Blood VENOUS BLOOD / Unknown Non-Lab Collect / Unknown 03/18/2020 10:35 EDT 03/18/2020 16:41 EDT Mushtaq Light DO CHEMISTRY & BLOOD G ORDERABLES Performing Organization Address [facility] Co de Phone Number [facility] [address] [place] [address] documented in this encounter Visit Diagnoses Diagnosis Encounter for other general examination documented in this encounter Additional Health Concerns Infection Onset Date Last Indicated Resolved Time R/O COVID-19 08/04/2020 08/04/2020 08/04/2020 11:4 0 EST documented as of this encounter Care Teams Sales Development Executive Relationship Specialty Start Date End Date Carrington Calderon MD 1 [facility] 1 [place] [phone] PCP - General Internal Medicine - Primary Care 12/09/20 Abigail Díaz Meat Cutting Block Repairer 04/21/23 Carmelo Hendrickson Coordinator 12/01/23 documented as of this encounter
--- OUTSIDE RECORDS SUMMARY | 2024-01-02 06:18 | XMS_ITS | Encounter Summary ---
Author Organization [facility] Address [address] [place] [address] Care Team Providers Care Concrete Pump Operator Helper Name Role Phone Unavailable Primary Care Provider Unavailabl e Encounter Details Date Type Department Care Team ([facility] Contact Info) Description 03/11/[address] [facility] Home Infusion Pharmacy - [address] [place], [place] [address] Marcel Bustamante Social History Tobacco Use Types [...] infusion service. Medication Order Review Admission Criteria: Cultural/episcopalian barriers to home infusion therapy: No Language other than Spanish: No Vision, speech, hearing, or cognitive impairment: [...] Home Health Agency Contact Info: DANAY Reardon ([phone] or [phone]) Laboratory Contacts: [facility] [phone] Referral Source: Nurse/Bit Setter Plan: Initial teach completed with Stella for [...] MARCEL BUSTAMANTE 03/11/2020 15:07 * Mily Ovalle, [facility] - 03/11/2020 8525 EDT Patient: Cristy Luo is a 34 [...] nurse assessment. Plan: Begin home infusion therapy. ROLLING MACHINE TENDER nurse to see patient for administration of first home dose. Mixed and sent enough drug and supplies through 03/19/20. Delivery to [facility] for patient to pickling machine operator at discharge. Anticipated end date 04/20/20. Follow up with patient via telephone within first week of therapy. Monitor labs per care plan weekly. MILY OVALLE RPH 03/17/2020 15:00 documented in this encounter Plan of Treatment Upcoming Encounters Date Type Department Care Team (Late st Contact Info) Description 02/21/2024 9:[address] [facility] Adult Primary Care - [address] [phone] Carrington Calderon MD [address] [phone] 02/27/2024 8:[address] [facility] Sleep Program - [address] [phone] Dwight Colbert [address] [place] [phone] 02/29/2024 10:30 EDT Appointment [facility] Radiology Nuclear Medicine and PET [address] [phone] 02/29/2024 14:30 EDT Appointment [facility] Radiology Nuclear Medicine and PET [address] [id number] 03/01/2024 8:00 EDT Appointment [facility] Radiology Nuclear Medicine and PET - [address] [phone] 03/01/2024 9:30 EDT Appointment [facility] Radiology Nuclear Medicine and PET [address] [phone] documented as of this encounter Visit Diagnoses Not on filedocumented in this encounter
--- OUTSIDE RECORDS SUMMARY | 2024-01-02 06:18 | XMS_ITS | Encounter Summary ---
Author Organization [facility] Address [address] [place] [address] Care Team Providers Care Money Room Teller Name Role Phone Unavailable Primary Care Provider Unavailabl e Reason for Visit * Reason Comments Telemedicine Video Visit Encounter Details Date Type Department Care Team (Late st Contact Info) Description 03/27/2020 13:30 EDT Telemedicine [facility] Infectious Disease - [address] [phone] Tonja Plascencia NP 111 [facility], Level [address] [place] [address] Osteomyelitis of great toe of [...] this encounter Progress Notes * Tonja Plascencia, AADC PLANS STAFF OFFICER - 03/27/2020 1330 EDT Infectious Disease Clinic [...] encounter visit: Tonja Plascencia ?? Patient location: [facility]town, State: [place] Estimated driving distance from [place]: 25 miles. Demographics HPI: Cristy Luo [...] a decrease in the size. Per. Dr Nvaarro note on 03/25/2020 ulcer is improving in [...] [facility] Adult Primary Care - [address] [phone] Carrington Calderon MD [address] [phone] 02/27/2024 8:30 EDT Telemedicine [facility] Sleep Program - [address] [phone] Dwight Colbert [address] [place] [phone] 02/29/2024 10:30 EDT Appointment [facility] Radiology Nuclear Medicine and PET - [address] [phone] 02/29/2024 14:30 EDT Appointment [facility] Radiology Nuclear Medicine and PET - [address] [phone] 03/01/2024 8:00 EDT Appointment [facility] Radiology Nuclear Medicine and PET - [address] [address] 03/01/2024 9:30 EDT Appointment [facility] Radiology Nuclear Medicine and PET - [address] [address] documented as of this encounter Visit Diagnoses Diagnosis Osteomyelitis of great toe of left foot ([facility]-CMS)- Primary documented in this encounter
--- OUTSIDE RECORDS SUMMARY | 2024-01-02 06:18 | XMS_ITS | Encounter Summary ---
Author Organization [facility] Address [address] [place] [address] Care Team Providers Care Shoulder Pad Molder Name Role Phone Unavailable Primary Care Provider Unavailabl e Reason for Visit * Reason Onset Date Comments Medications Refill 03/21/2020 Encounter Details Date Type Department Care Team (Late st Contact Info) Description 03/21/2020 Refill [facility] Endocrinology - [facility] [address] [place], [place] [phone] Sara Zafar NP 62 [facility] [address] [place] [address] Medications Refill Social History Tobacco [...] Info) Description 02/21/2024 9:45 EDT Office Visit [facility] Adult Primary Care - [address] [address] Carrington Calderon MD 1 [facility] 1 [place] [address] 02/27/2024 8:30 EDT Telemedicine [facility] Sleep Program - [address] [address] Dwight Colbert [address] [place] [address] 02/29/2024 10:30 EDT Appointment [facility] Radiology Nuclear Medicine and PET [address] [phone] 02/29/2024 14:30 EDT Appointment [facility] Radiology Nuclear Medicine and PET [address] [phone] 03/01/2024 8:00 EDT Appointment [facility] Radiology Nuclear Medicine and PET [address] 534361 03/01/2024 9:30 EDT Appointment [facility] Radiology Nuclear Medicine and PET [address] [address] documented as of this encounter Visit Diagnoses [...]
--- OUTSIDE RECORDS SUMMARY | 2024-01-02 06:18 | XMS_ITS | Encounter Summary ---
Author Organization [facility] Address [address] [place] [address] Care Team Providers Care Asphalt Distributor Tender Name Role Phone Unavailable Primary Care Provider Unavailabl e Encounter Details Date Type Department Care Team ([facility] [address] Contact Info) Description 03/13/2020 Documentation Visit [facility]fusion Pharm[facility] - S [address] [place] [address] Natasha Crook, RN [address] [place] [address] Social History Tobacco Use Types Packs/Day Years [...] [facility] Adult Primary Care - [address] [phone] Carrington Calderon MD 1 [facility] 1 [place] [phone] 02/27/2024 8:30 EDT Telemedicine [facility] Sleep Program - S [address] 1 [place] [address] Sayra Dwight [address] [place] [address] 02/29/2024 10:30 EDT [facility] Radiology Nuclear Medicine and PET - [address] [phone] 02/29/2024 14:30 EDT Appointment [facility] Radiology Nuclear Medicine and PET - [address] [phone] 03/01/2024 8:00 EDT Appointment [facility] Radiology Nuclear Medicine and PET - [address] [phone] 03/01/2024 9:30 EDT Appointment [facility] Radiology Nuclear Medicine and PET - [address] [phone] documented as of this encounter Visit Diagnoses Not on filedocumented in this encounter
--- OUTSIDE RECORDS SUMMARY | 2024-01-02 06:18 | XMS_ITS | Encounter Summary ---
Author Organization [facility] Address [address] [place] [address] Care Team Providers Care Commercial Specialist Name Role Phone Unavailable Primary Care Provider Unavailabl e Encounter Details Date Type Department Care Team (Late st Contact Info) Description 03/18/2020 Orders Only [facility] Endocrinology - [facility] [address] [place] [address] Sara Zafar, GUSTAVO 62 [facility] [address] [place] [address] Type 2 diabetes mellitus with hyperglycemia, with long-term current use of insulin ([facility]) (Primary Dx) Social History Tobacco [...] [facility] Care - [address] [phone] Carrington Calderon MD 1 [facility] 1 [place] [phone] 02/27/2024 8:30 EDT Telemedicine [facility] Sleep Program - [address] 058251 Dwight Colbert [address] [place] [address] [phone] 02/29/2024 10:30 EDT [facility]ment [facility] Rad[facility] Nuclear Medicine and PET - [address] [address] 02/29/2024 14:30 EDT [facility] Radiology Nuclear Medicine and PET - [address] [address] 03/01/2024 8:00 EDT Appointment [facility] Radiology Nuclear Medicine and PET - [address] [address] 03/01/2024 9:30 EDT Appointment [facility] Radiology Nuclear Medicine and PET - [address] [address] documented as of this encounter Visit Diagnoses Diagnosis Type 2 diabetes mellitus with hyperglycemia, with long-term current use of insulin ([facility])- Primary documented in this encounter
--- OUTSIDE RECORDS SUMMARY | 2024-01-02 06:18 | XMS_ITS | Encounter Summary ---
Author Organization [facility] Address [address] [place] [address] Care Team Providers Care Scorekeeper Name Role Phone Unavailable Primary Care Provider [...] [facility] Adult Primary Care - [address] 620321 Carrington Calderon MD [address] [phone] 02/27/2024 8:30 EDT Telemedicine [facility] Sleep Program - [address] [address] Dwight Colbert [address] [place] [phone] 02/29/2024 10:30 EDT Appointment [facility] Radiology Nuclear Medicine and PET - [address] [phone] 02/29/2024 14:30 EDT Appointment [facility] Radiology Nuclear Medicine and PET - [address] 909131 03/01/2024 8:00 EDT Appointment [facility] Radiology Nuclear Medicine and PET - [address] [phone] 03/01/2024 9:30 EDT Appointment [facility] Radiology Nuclear Medicine and PET - [address] [address] documented as of this encounter Visit Diagnoses Not on filedocumented in this encounter
--- OUTSIDE RECORDS SUMMARY | 2024-01-02 06:18 | XMS_ITS | Encounter Summary ---
Author Organization [facility] Address [address] [place] [address] Care Team Providers Care Cork Insulation Setter Name Role Phone Unavailable Primary Care Provider Unavailabl e Encounter Details Date Type Department Care Team ([facility] Contact Info) Description 03/31/2020 Documentation Visit [facility] - [address] [place], [place] [address] Mina Peng RN Social History Tobacco Use [...] Notes * Mina Peng, MARCELO - 03/31/2020 09 EDT Patient: Cristy Luo is a 35 [...] PENG RN 03/31/2020 10:11 * Guido Li [facility] - 03/31/2020 0905 EDT Patient: Cristy Luo is a 35 [...] Will deliver to patients home tomorrow via [employer]. Will continue to monitor per care plan and reassess next week. GUIDO LI RPH 03/31/2020 16:11 documented in this encounter Plan of Treatment Upcoming Encounters Date Type Department Care Team (Late st Contact Info) Description 02/21/2024 9:45 EDT Office Visit [facility] Adult Primary Care - [address] [phone] Carrington Calderon MD 1 [facility] 1 [place] [phone] 02/27/2024 8:30 EDT Telemedicine [facility] Sleep Program - [address] [phone] Dwight Colbert [address] [place] [address] 329101 02/29/2024 10:30 EDT Appointment [facility] Radiology Nuclear Medicine and PET - [address] [id number] 02/29/2024 14:30 EDT Appointment [facility] Radiology Nuclear Medicine and PET [address] [phone] 03/01/2024 8:00 EDT Appointment [facility] Radiology Nuclear Medicine and PET - [address] [id number] 03/01/2024 9:30 EDT Appointment [facility] Radiology Nuclear Medicine and PET - [address] 114091 documented as of this encounter Visit Diagnoses Not on filedocumented in this encounter
--- OUTSIDE RECORDS SUMMARY | 2024-01-02 06:18 | XMS_ITS | Encounter Summary ---
Author Organization [facility] Address [address] [place] [address] Care Team Providers Care Process Engineering Manager Name Role Phone Carrington Calderon MD Primary Care Provi anders Abigail Díaz Unavailable Carmelo Hendrickson Unavailable Unavailable Encounter Details Date Type Department Care Team (Late st Contact Info) Description 03/25/2020 Lab Requisition [facility] Pathology & Laboratory Medicine - [address] [address] Mushtaq Light, DO 111 [facility], Level 5 [place] [address] Encounter for other general examination [...] [facility] Adult Primary Care - [address] [phone] Carrington Calderon MD 1 [facility] 1 [place] [phone] 02/27/2024 8:30 EDT Telemedicine [facility] Sleep Program - [address] [address] Dwight Colbert [address] [place] [address] 268291 02/29/2024 10:[address] [facility] Radiology Nuclear Medicine and PET [address] [phone] 02/29/2024 14:[address] [facility] Radiology Nuclear Medicine and PET [address] [phone] 03/01/2024 8:[address] [facility] Radiology Nuclear Medicine and PET [address] [phone] 03/01/2024 9:[address] [facility] Radiology Nuclear Medicine and PET [address] [phone] documented as of this encounter Procedures Procedure [...] this encounter Results * (ABNORMAL) SED. RATE:MARLYN (03/25/2020 13:25 EDT) Sed Rate 40(H) 0 - 20 mm/hr 03/25/2020 20:19 EDT [facility] Comment:Note: Sample greater than 4 hours old (but less than 12 hours) when tested. If refrigerated, sample is stable when tested within 12 hours of collection. Blood VENOUS BLOOD / Unknown 03/25/2020 13:25 EDT 03/25/2020 19:10 EDT Mushtaq Light DO HEMATOLOGY & PF4 OR DERABLES [facility] [address] [place] [address] * (ABNORMAL) COMPLETE BLOOD COUNT AND DIFFERENTIAL (03/25/2020 13:25 EDT) WBC 13.46(H) 4.00 - 12.40 K/cmm 03/25/2020 19:49 [facility] RBC 4.59 3.86 - 5.04 M/cmm 03/25/2020 19:49 [facility] Hemoglobin 13.8 11.6 - 15.2 gm/dL 03/25/2020 19:49 [facility] HCT 40.3 34.9 - 44.4 % 03/25/2020 19:49 [facility] MCV 88 81 - 98 fl 03/25/2020 19:49 [facility] MCH 30.1 26.7 - 33.3 pg 03/25/2020 19:49 [facility] MCHC 34.2 32.1 - 35.9 gm/dL 03/25/2020 19:49 [facility] RDW-CV 12.4 <14.7 % 03/25/2020 19:49 [facility] RDW-SD 40.0 <50.4 fl 03/25/2020 19:49 [facility] PLT 357 141 - 377 K/cmm 03/25/2020 19:49 [facility] MPV 10.1 9.5 - 12.7 fl 03/25/2020 19:49 [facility] % Neutrophils 52.3 % 03/25/2020 19:49 [facility] % Lymphocytes 36.8 % 03/25/2020 19:49 [facility] % Monocytes 7.3 % 03/25/2020 19:49 [facility] % Eosinophils 2.9 % 03/25/2020 19:49 [facility] % Basophils 0.5 % 03/25/2020 19:49 [facility] % Immature Grans 0.2 % 03/25/20 19:49 [facility] Absolute Neutrophils 7.04 2.20 - 8.85 K/cmm 03/25/2020 19:49 EDT [facility] Absolute Lymphocytes 4.95(H) 1.09 - 3.30 K/cmm 03/25/2020 19:49 T [facility] Absolute Monocytes 0.98(H) 0.10 - 0.80 K/cmm 03/25/2020 19:49 T [facility] Absolute Eosinophils 0.39 0.03 - 0.61 K/cmm 03/25/2020 19:49 EDT [facility] ABS Basophils 0.07 0.01 - 0.11 K/cmm 03/25/2020 19:49 [facility] Absolute Immature Grans 0.03 0.00 - 0.06 K/cmm 03/25/2020 19:49 T [facility] Type of Differential: Auto 03/25/2020 19:49 T [facility] Blood VENOUS BLOOD / Unknown 03/25/2020 13:25 EDT 03/25/2020 19:10 EDT Mushtaq Light DO PACKAGES & DNA PROB E ORDERABLES Performing Organization Address City/[facility] Co de Phone Number [facility] [address] [place] [address] * (ABNORMAL) CREATININE (03/25/2020 13:25 EDT) Creatinine 0.44(L) 0.52 - 1.04 mg/dL 03/25/2020 19:46 EDT [facility] eGFR 131 >60 mL/min/1.7 3m2 03/25/2020 19:46 EDT [facility] Comment:eGFR calculated gil curtis CKD-EPI equation for non- Americans. Multiply eGFR by 1.16 for patients. Blood VENOUS BLOOD / Unknown 03/25/2020 13:25 EDT 03/25/2020 19:10 EDT Mushtaq Light DO CHEMISTRY & BLOOD G ORDERABLES Performing Organization Address City/[facility]/ZIP Co de Phone Number [facility] [address] [place] [address] * C REACTIVE PROTEIN (03/25/2020 13:25 EDT) C-Reactive Protein <7.0 <10.0 mg/L 03/25/2020 19:46 EDT [facility] Blood VENOUS BLOOD / Unknown 03/25/2020 13:25 EDT 03/25/2020 19:10 EDT Mushtaq Light DO CHEMISTRY & BLOOD G ORDERABLES [facility] [address] [place] [address] documented in this encounter Visit Diagnoses Diagnosis Encounter for other general examination documented in this encounter Additional Health Concerns Infection Onset Date Last Indicated Resolved Time R/O COVID-19 08/04/2020 08/04/2020 08/04/2020 11:4 0 EST documented as of this encounter Care Teams Process Engineering Manager Relationship Specialty Start Date End Date Carrington Calderon MD 1 [facility] 1 [place] [address] PCP - General Internal Medicine - Primary Care 12/09/20 Abigail Díaz [place] Roofer 04/21/23 Carmelo Hendrickson Coordinator 12/01/23 documented as of this encounter
--- OUTSIDE RECORDS SUMMARY | 2024-01-02 06:18 | XMS_ITS | Encounter Summary ---
Author Organization [facility] Address [address] [place] [address] Care Team Providers Care Passenger Service Representative Name Role Phone Unavailable Primary Care Provider Unavailabl e Reason for Visit * Reason Onset Date Comments Follow-up 03/05/2020 Encounter Details Date Type Department Care Team (Late st Contact Info) Description 03/05/2020 Telephone [facility] Adult Primary Care - [address] [phone] Tonja Alejandro PA-C [facility] [address] [place] [phone] Follow-up Social History Tobacco Use Types [...] Visit [facility] Adult Primary Care - [address] [phone] Carrington Calderon MD 1 [facility] 1 [place] [address] 02/27/2024 8:30 EDT Telemedicine [facility] Sleep Program - [address] [phone] Dwight Colbert [address] [place] [address] [phone] 02/29/2024 10:[address] [facility] Radiology Nuclear Medicine and PET - [address] [id number] 02/29/2024 14:[address] [facility] Radiology Nuclear Medicine and PET - [address] [phone] 03/01/2024 8:[address] [facility] Radiology Nuclear Medicine and PET - [address] [id number] 03/01/2024 9:[address] [facility] Radiology Nuclear Medicine and PET - [address] [id number] documented as of this encounter Visit Diagnoses Not on filedocumented in this encounter
--- OUTSIDE RECORDS SUMMARY | 2024-01-02 06:18 | XMS_ITS | Encounter Summary ---
Author Organization [facility] Address [address] [place] [address] Care Team Providers Care Warp Hand Name Role Phone Unavailable Primary Care [...] [facility] Adult Primary Care - [address] 857111 Carrington Calderon MD [address] [phone] 02/27/2024 8:30 EDT Telemedicine [facility] Sleep Program - [address] [address] Dwight Colbert [address] [place] [address] [phone] 02/29/2024 10:30 EDT Appointment [facility] Radiology Nuclear Medicine and PET - [address] [phone] 02/29/2024 14:30 EDT Appointment [facility] Radiology Nuclear Medicine and PET - [address] [id number] 03/01/2024 8:00 EDT Appointment [facility] Radiology Nuclear Medicine and PET - [address] [phone] 03/01/2024 9:30 EDT Appointment [facility] Radiology Nuclear Medicine and PET - [address] [address] documented as of this encounter Visit Diagnoses Not on filedocumented in this encounter
--- OUTSIDE RECORDS SUMMARY | 2024-01-02 06:18 | XMS_ITS | Encounter Summary ---
Author Organization [facility] Address [address] [place] [address] Care Team Providers Care Telephone Appointment Clerk Name Role Phone Unavailable Primary Care Provider Unavailabl e Reason for Visit * Reason Onset Date Comments Home Health 03/25/2020 Encounter Details Date Type Department Care Team (Late st Contact Info) Description 03/25/2020 Telephone [facility] Adult Primary Care - [address] [phone] Tonja Alejandro PA-C [facility] [address] [place] [phone] Home Health Social History Tobacco Use [...] - 03/25/2020 1606 EDT Kylah called from [facility] stating Patients Heart Rate has been elevated at 100-120 per min documented in this encounter Plan of Treatment Upcoming Encounters Date Type Department Care Team (Late st Contact Info) Description 02/21/2024 9:45 EDT Office Visit [facility] Adult Primary Care - [address] [phone] Carrington Calderon MD [address] [phone] 02/27/2024 8:30 EDT Telemedicine [facility] Sleep Program - [address] [address] Dwight Colbert [address] [place] [address] 02/29/2024 10:30 EDT Appointment [facility] Radiology Nuclear Medicine and PET - [address] [address] 02/29/2024 14:30 EDT Appointment [facility] Radiology Nuclear Medicine and PET - [address] [address] 03/01/2024 8:00 EDT Appointment [facility] Radiology Nuclear Medicine and PET - [address] [phone] 03/01/2024 9:30 EDT Appointment [facility] Radiology Nuclear Medicine and PET - [address] [phone] documented as of this encounter Visit Diagnoses Not on filedocumented in this encounter
--- OUTSIDE RECORDS SUMMARY | 2024-01-02 06:18 | XMS_ITS | Encounter Summary ---
Author Organization [facility] Address [address] [place] [address] Care Team Providers Care Still Cleaner Tube Name Role Phone Unavailable Primary Care Provider Unavailabl e Reason for Visit * Reason Onset Date Comments Home Health 04/01/2020 Encounter Details Date Type Department Care Team (Late st Contact Info) Description 04/01/2020 Telephone [facility] Infectious Disease - [address] [phone] Mushtaq Light, DO 111 [facility], Level [address] [place] [address] Home Health Social History Tobacco [...] Telephone Encounter - Smita Green - 04/01/2020 3652 EDT Kylah from [facility] states that she did picc dressing change and clave, but was not able to get the extension tubing off. Would like a call back with plan. [phone]. documented in this encounter Plan of Treatment Upcoming Encounters Date Type Department Care Team (Late st Contact Info) Description 02/21/2024 9:45 EDT Office Visit [facility] Adult Primary Care - [place] 1 [place], [place] [phone] Carrington Calderon MD 1 [facility] Level 1 [place] [phone] 02/27/2024 8:30 EDT Telemedicine [facility] Sleep Program - [place] [address] [place] [address] Dwight Colbert [address] [place] [address] 02/29/2024 10:30 EDT [facility]ointment [facility] Radiology Nuclear Medicine and PET - [address] [id number] 02/29/2024 14:30 EDT Appointment [facility] Radiology Nuclear Medicine and PET - [address] [phone] 03/01/2024 8:00 EDT Appointment [facility] Radiology Nuclear Medicine and PET - [address] [phone] 03/01/2024 9:30 EDT Appointment [facility] Radiology Nuclear Medicine and PET - [address] [phone] documented as of this encounter Visit Diagnoses Not on filedocumented in this encounter
--- OUTSIDE RECORDS SUMMARY | 2024-01-02 06:18 | XMS_ITS | Encounter Summary ---
Author Organization [facility] Address [address] [place] [address] Care Team Providers Care Food Dehydrator Operator Name Role Phone Unavailable Primary Care [...] Visit [facility] Adult Primary Care - [address] [phone] Carrington Calderon MD [address] [phone] 02/27/2024 8:30 EDT Telemedicine [facility] Sleep Program - [address] [phone] Dwight Colbert [address] [place] [address] 334361 02/29/2024 10:30 EDT Appointment [facility] Radiology Nuclear Medicine and PET [address] [phone] 02/29/2024 14:30 EDT Appointment [facility] Radiology Nuclear Medicine and PET [address] 316001 03/01/2024 8:00 EDT Appointment [facility] Radiology Nuclear Medicine and PET [address] [phone] 03/01/2024 9:30 EDT Appointment [facility] Radiology Nuclear Medicine and PET [address] [phone] documented as of this encounter Visit Diagnoses Not on filedocumented in this encounter
--- OUTSIDE RECORDS SUMMARY | 2024-01-02 06:18 | XMS_ITS | Encounter Summary ---
Author Organization [facility] Address [address] [place] [address] Care Team Providers Care Principal Automation Engineer Name Role Phone Carrington Calderon MD Primary Care Provi anders Reason for Visit * Reason Onset Date Comments Blood Sugar Problem 03/18/2020 low;75 Medication Questions 03/18/2020 insulin Encounter Details Date Type Department Care Team (Late st Contact Info) Description 03/18/2020 Telephone [facility] Endocrinology - [facility] [address] [place] [address] Sara Zafar NP [address] [facility] [address] [place] [address] Blood Sugar Problem (low;75); Medication [...] Visit [facility] Adult Primary Care - [address] 485441 Carrington Calderon MD [address] [phone] 02/27/2024 8:30 EDT Telemedicine [facility] Sleep Program - [address] [phone] Dwight Colbert [address] [place] [address] [phone] 02/29/2024 10:30 EDT Appointment [facility] Radiology Nuclear Medicine and PET - [address] 839341 02/29/2024 14:30 EDT Appointment [facility] Radiology Nuclear Medicine and PET - [address] [phone] 03/01/2024 8:00 EDT Appointment [facility] Radiology Nuclear Medicine and PET - [address] [phone] 03/01/2024 9:30 EDT Appointment [facility] Radiology Nuclear Medicine and PET - [address] [address] documented as of this encounter Visit Diagnoses Not on filedocumented in this encounter Additional Health Concerns Infection Onset Date Last Indicated Resolved Time R/O COVID-19 08/04/2020 08/04/2020 08/04/2020 11:4 0 EST documented as of this encounter Care Teams Principal Automation Engineer Relationship Specialty Start Date End Date Carrington Calderon MD 1 [facility] 1 [place] [phone] PCP - General Internal Medicine - Primary Care 12/09/20 documented as of this encounter
--- OUTSIDE RECORDS SUMMARY | 2024-01-02 06:18 | XMS_ITS | Encounter Summary ---
Author Organization [facility] Address [address] [place] [address] Care Team Providers Care Histology Teacher Name Role Phone Unavailable Primary Care [...] [facility] Adult Primary Care - [address] [phone] Carrington Calderon MD [address] [phone] 02/27/2024 8:30 EDT Telemedicine [facility] Sleep Program - [address] [address] Dwight Colbert [address] [place] [address] [phone] 02/29/2024 10:30 EDT Appointment [facility] Radiology Nuclear Medicine and PET [address] [phone] 02/29/2024 14:30 EDT Appointment [facility] Radiology Nuclear Medicine and PET [address] 856011 03/01/2024 8:00 EDT Appointment [facility] Radiology Nuclear Medicine and PET [address] 147291 03/01/2024 9:30 EDT Appointment [facility] Radiology Nuclear Medicine and PET [address] [phone] documented as of this encounter Visit Diagnoses Not on filedocumented in this encounter
--- OUTSIDE RECORDS SUMMARY | 2024-01-02 06:18 | XMS_ITS | Encounter Summary ---
Author Organization [facility] Address [address] [place] [address] Care Team Providers Care Bench Grinder Name Role Phone Unavailable Primary Care Provider Unavailabl e Reason for Visit * Reason Comments Foot Problem Encounter Details Date Type Department Care Team (Late st Contact Info) Description 03/25/2020 8:30 EDT Office Visit [facility] Foot & Ankle Program - [address] [address] Elza Navarro DPM [address] [place] [phone] Ulcer of great toe, left, with necrosis of bone ([facility]) (Primary Dx); Type 2 diabetes mellitus with diabetic polyneuropathy, with long-term current use of insulin ([facility]) Social History Tobacco Use [...] great toe of left foot ([facility]) 03/12/2020 Priority: Medium ??? Diabetic foot ulcer associated with diabetes mellitus due to underlying condition ([facility]) 03/07/2020 Priority: Medium ??? Diabetic foot infection ([facility]) 03/06/2020 Priority: Medium ??? Diabetic foot ulcer ([facility]) 03/06/2020 Priority: Medium ??? Cellulitis of great toe of left foot 11/26/2019 Priority: Medium ??? Chronic midline low back pain without sciatica 11/26/2019 Priority: Medium ??? Chronic left ear pain 09/04/2015 Priority: Medium ??? Encounter for sterilization 11/20/2019 ??? Family history of rheumatoid arthritis 09/04/2015 ??? Type 2 diabetes mellitus ([facility]) 09/03/2015 ??? Anxiety and depression 05/12/2010 ??? Migraine with aura and without status migrainosus, not intractable Past Medical History: Diagnosis Date ??? Anxiety ??? Arthritis 12/05/19- Spine- told years ago ??? Diabetes ([facility]) A1c 10.3 on 11/28/2019 ??? History [...] great toe, left, with necrosis of bone ([facility]) 2. Type 2 diabetes mellitus with diabetic polyneuropathy, with long-term current use of insulin ([facility]) No orders of the defined types were [...] prepared with speech recognition software or keyboard clinical data coordinator techniques. Minor irregularities or keyboarding misprints may be present * Swathi Tesfaye LPN - 03/25/2020 0830 EDT Call to [facility] with wound care orders. SWATHI TESFAYE LPN documented in this encounter Plan of Treatment Upcoming Encounters Date Type Department Care Team (Late st Contact Info) Description 02/21/2024 9:45 EDT Office Visit [facility] Adult Primary Care - [address] [phone] Carrington Calderon MD [address] [phone] 02/27/2024 8:30 EDT Telemedicine [facility] Sleep Program - [address] [phone] Dwight Colbert [address] [place] [address] [phone] 02/29/2024 10:30 EDT Appointment [facility] Radiology Nuclear Medicine and PET - [address] [id number] 02/29/2024 14:30 EDT Appointment [facility] Radiology Nuclear Medicine and [address] [phone] 03/01/2024 8:00 EDT Appointment [facility] Radiology Nuclear Medicine and PET [address] [phone] 03/01/2024 9:30 EDT Appointment [facility] Radiology Nuclear Medicine and PET - [address] [address] documented as of this encounter Visit Diagnoses Diagnosis Ulcer of great toe, left, with necrosis of bone ([facility] Primary Type 2 diabetes mellitus with diabetic polyneuropathy, with long-term current use of insulin ([facility]) documented in this encounter
--- OUTSIDE RECORDS SUMMARY | 2024-01-02 06:19 | XMS_ITS | Encounter Summary ---
Author Organization [facility] Address [address] [place] [address] Care Team Providers Care Elementary Assistant Teacher Name Role Phone Unavailable Primary Care Provider Unavailabl e Encounter Details Date Type Department Care Team (Late st Contact Info) Description 11/28/2019 Orders Only [facility] Radiology - Main [place] [address] [place] [address] Tracey Veloz MD [address] [place], [place] [phone] Social History Tobacco Use Types Packs/Day Years [...] [facility] Adult Primary Care - [address] [address] Carrington Calderon MD [address] [phone] 02/27/2024 8:30 EDT Telemedicine [facility] Sleep Program - [address] [phone] Dwight Colbert [address] [place] [address] [phone] 02/29/2024 10:30 EDT Appointment [facility] Rad[facility] Nuclear Medicine and PET - [address] [phone] 02/29/2024 14:30 EDT Appointment [facility] Rad[facility] Nuclear Medicine and PET - [address] [phone] 03/01/2024 8:[address] [facility] Radiology Nuclear Medicine and PET [address] [phone] 03/01/2024 9:[address] [facility] Radiology Nuclear Medicine and PET [address] [phone] documented as of this encounter Visit Diagnoses Not on filedocumented in this encounter
--- OUTSIDE RECORDS SUMMARY | 2024-01-02 06:19 | XMS_ITS | Encounter Summary ---
Author Organization [facility] Address [address] [place] [address] Care Team Providers Care Hand Mica Plate Layer Name Role Phone None, Provider Primary Care Provider Unavailabl e Reason for Visit * Reason Comments Advice Only patient states I w ant a tubal, cut, tie, burn. I want no more chances of or miscarriage Encounter Details Date Type Department Care Team (Latest Contact Info) Description 11/02/2019 8:15 EDT Initial consult [facility] Women's Services - [address] [address] Patricia Sifuentes MD [address] [place] [phone] Consultation for female sterilization (Primary Dx) [...] 11/02/2019 9:08 Obstetrics & Gynecology, PGY-1 Pager [phone] * Callum Callejas MD - 11/02/2019 0815 [...] [facility] - [address] [phone] Carrington [place]on MD [address] [place] [phone] 02/27/2024 8:30 EDT Telemedicine [facility] Sleep Program - [address] [phone] Dwight Colbert [address] [place] [address] [phone] 02/29/2024 10:30 EDT Appointment [facility] Radiology Nuclear Medicine and [address] [phone] 02/29/2024 14:30 EDT Appointment [facility] Radiology Nuclear Medicine and [address] [phone] 03/01/2024 8:00 EDT Appointment [facility] Radiology Nuclear Medicine and PET [address] [phone] 03/01/2024 9:30 EDT Appointment [facility] Radiology Nuclear Medicine and [address] [phone] documented as of this encounter Visit Diagnoses [...] documented as of this encounter Care Teams Hand Mica Plate Layer Relationship Specialty Start Date End Date None, Provider PCP - General 06/18/19 11/25/19 documented as of this encounter
--- OUTSIDE RECORDS SUMMARY | 2024-01-02 06:19 | XMS_ITS | Encounter Summary ---
Author Organization [facility] Address [address] [place] [address] Care Team Providers Care Brief Writer Name Role Phone None, Provider Primary Care Provider Unavailabl e Reason for Visit * Reason Comments Dental Pain inside lower abscess near gum.bilateral Encounter Details Date Type Department Care Team (Latest Contact Info) Description 10/28/2019 14:26 EDT - 10/28/2019 15:11 EDT Hospital Encounter [facility] - [facility] [address] [place] [address] Monique Gramajo, GUSTAVO [address] [place] [phone] Gingivitis (Primary Dx) Discharge Disposition: Home or [...] sent through Care Everywhere. * Periodontal Conditions (Luxembourgish) documented in this encounter Medications at Time [...] this encounter ED Notes * Monique Gramajo, COVERSTITCH BINDER - 10/28/2019 1500 EDT DOS: 10/28/2019 Chief [...] tried any treatment. [facility] but they can't see her until Tuesday. [...] PCR results found No results found for: [id number] HgA1c [ ] 1T pending [ ] [...] in past 80u, Followed by endocrine in [facility]. Stopped few yrs ago until this past month. ??? Anxiety and depression 05/12/2010 Onset teen yrs. Treated with citalopram in approx 2012 - had SI, treated at [place]. Marijuana prn to help with stress/anxiety sx. [...] of further medications. Upon departure from [facility], the patient's pain was 6 on a zero to ten scale. Any further pain treatment will be at the discretion of the provider following up with the patient based on their clinical assessment . Condition at departure from the [facility] : Stable MDM 10/28/2019 [...] [facility] - [address] [phone] Carrington [place]on MD [address] [phone] 02/27/2024 8:30 EDT Telemedicine [facility] Sleep Program - [address] [phone] Dwight Colbert [address] [place] [address] [phone] 02/29/2024 10:30 EDT [facility]ointment [facility] Radiology Nuclear Medicine and PET - [address] [address] 02/29/2024 14:30 EDT Appointment [facility] Radiology Nuclear Medicine and PET [address] [address] 03/01/2024 8:00 EDT Appointment [facility] Radiology Nuclear Medicine and PET - [address] [address] 03/01/2024 9:30 EDT Appointment [facility] Radiology Nuclear Medicine and PET [address] [address] documented as of this encounter Visit Diagnoses Diagnosis Gingivitis- Primary Chronic gingivitis, plaque induced documented in this encounter Care Teams Brief Writer Relationship Specialty Start Date End Date None, Provider PCP - General 06/18/19 11/25/19 documented as of this encounter
--- OUTSIDE RECORDS SUMMARY | 2024-01-02 06:19 | XMS_ITS | Encounter Summary ---
Author Organization [facility] Address [address] [place] [address] Care Team Providers Care Barometers Calibrator Name Role Phone Unavailable Primary Care Provider Unavailabl e Reason for Visit * Reason Comments Diabetes Encounter Details Date Type Department Care Team (Latest Contact Info) Description 01/08/2020 10:30 EDT Telemedicine [facility] Endocrinology - [facility] [address] [place] [address] Sara Zafar NP [address] [facility] [address] [place] [phone] Type 2 diabetes mellitus with hyperglycemia, with long-term current use of insulin ([facility]) (Primary Dx) Social History Tobacco Use [...] in 3 months I will check with MOTOR COACH CHAUFFEUR on expected HgA1C to have surgery. documented in this encounter Progress Notes * Sara Zafar APRN - 01/08/2020 1030 EDT Subjective: [facility] diabetes Center F/U Note TELEMEDICINE VIDEO VISIT [...] trimester miscarriages, most recently terminated a at [facility] The most recent 10/28/2019. Recurrent loss is attributed to to poorly controlled type 2 diabetes in conjunction with tobacco dependence. She saw BUCKET WASH OPERATOR on 11/03/2018, and was advised to get diabetes in control, and to quit smoking both tobacco and pot. She was scheduled for a tubal ligation December 14, but was cancelled again. 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 Previous [...] in 3 months I will check with MOTOR COACH CHAUFFEUR on expected HgA1C to have surgery. Recommend [...] Info) Description 02/21/2024 9:45 EDT Office Visit [facility] Adult Primary Care - [address] [phone] Carrington [place]on MD [address] [phone] 02/27/2024 8:30 EDT Telemedicine [facility] Sleep Program - [address] [phone] Dwight Colbert [address] [place] [address] [phone] 02/29/2024 10:30 EDT Appointment [facility] Radiology Nuclear Medicine and PET - [address] [phone] 02/29/2024 14:30 EDT [facility]ment [facility] and PET [address] [phone] 03/01/2024 8:00 EDT [facility] [place] Rad[facility] Nuclear Medicine and PET - [address] [phone] 03/01/2024 9:30 EDT [facility]ment [facility] Nuclear Medicine and PET - [address] [address] documented as of this encounter Visit Diagnoses Diagnosis Type 2 diabetes mellitus with hyperglycemia, with long-term current use of insulin ([facility])- Primary documented in this encounter Discontinued Medications Medication Sig Discontinue Reason Start Date End Da te metFORMIN (GLUCOPHAGE) 500 mg tablet Take 2 Tabs by mouth daily for 90 days. Side effects 11/26/2019 01/08/2020 documented as of this encounter
--- OUTSIDE RECORDS SUMMARY | 2024-01-02 06:19 | XMS_ITS | Encounter Summary ---
Author Organization [facility] Address [address] [place] [address] Care Team Providers Care Staff Developer Name Role Phone Unavailable Primary Care Provider Unavailabl e Reason for Visit * Reason Onset Date Comments Labs Only 12/05/2019 Encounter Details Date Type Department Care Team (Late st Contact Info) Description 12/05/2019 Telephone [facility] Women's Services - [address] [phone] Charu Flynn MD 111 [facility], Level [address] [place] [phone] Labs Only Social History Tobacco [...] you can call Pre Op back at [phone]. documented in this encounter Plan of Treatment Upcoming Encounters Date Type Department Care Team (Late st Contact Info) Description 02/21/2024 9:45 EDT Office Visit [facility] Adult Primary Care - [address] [phone] Carrington [place]on MD 1 [facility] [address] [place] [phone] 02/27/2024 8:30 EDT Telemedicine [facility] Sleep Program - [address] [phone] Dwight Colbert [address] [place] [address] [phone] 02/29/2024 10:30 EDT Appointment [facility] Radiology Nuclear Medicine and PET - [address] [address] 02/29/2024 14:30 EDT Appointment [facility] Radiology Nuclear Medicine and PET - [address] [address] 03/01/2024 8:00 EDT Appointment [facility] Radiology Nuclear Medicine and PET - [address] [address] 03/01/2024 9:30 EDT [facility]ment [facility] and PET - [address] [address] documented as of this encounter Visit Diagnoses Not on filedocumented in this encounter
--- OUTSIDE RECORDS SUMMARY | 2024-01-02 06:19 | XMS_ITS | Encounter Summary ---
Author Organization [facility] Address [address] [place] [address] Care Team Providers Care Seafood Technology Specialist Name Role Phone None, Provider Primary Care Provider Unavailabl e Reason for Visit * Reason Onset Date Comments Surgery Scheduling 11/20/2019 Encounter Details Date Type Department Care Team (Late st Contact Info) Description 11/20/2019 Telephone [facility] [address] [place], [place] [phone] Pamela Sifuentes MD [address] [place] [phone] Surgery Scheduling Social History Tobacco Use [...] [facility] - [address] 047651 Carrington Calderon MD [address] [place] [address] [phone] 02/27/2024 8:30 EDT Telemedicine [facility] Sleep Program - [address] [phone] Dwight Colbert [address] [place] [address] [phone] 02/29/2024 10:30 EDT [facility]ment [facility] Nuclear [facility] and PET - [address] [phone] 02/29/2024 14:30 EDT [facility]ment [facility] Nuclear [facility] and PET [address] [phone] 03/01/2024 8:00 EDT Appointment [facility] Radiology Nuclear Medicine and PET - [address] [phone] 03/01/2024 9:30 EDT Appointment [facility] Radiology Nuclear Medicine and PET - [address] [address] documented as of this encounter Visit Diagnoses Not on filedocumented in this encounter Care Teams Seafood Technology Specialist Relationship Specialty Start Date End Date None, Provider PCP - General 06/18/19 11/25/19 documented as of this encounter
--- OUTSIDE RECORDS SUMMARY | 2024-01-02 06:19 | XMS_ITS | Encounter Summary ---
Author Organization [facility] Address [address] [place] [address] Care Team Providers Care Blacking Wheel Tender Name Role Phone Unavailable Primary Care Provider Unavailabl e Encounter Details Date Type Department Care Team (Late st Contact Info) Description 01/03/2020 Orders Only [facility] Adult Primary Care - [address] [phone] Tonja Alejandro PA-C [address] [place] [address] [place] [phone] Social History Tobacco Use Types Packs/Day [...] Notes * Tonja Alejandro PA-C - 01/03/2020 2683 EDT Spoke with patient. She will get [...] [facility] [address] 328101 Carrington Calderon MD 1 [facility] 1 [place] [phone] 02/27/2024 8:30 EDT Telemedicine [facility] Sleep Program - [address] [phone] Dwight Colbert [address] [place] [address] 02/29/2024 10:30 EDT Appointment [facility] Radiology Nuclear Medicine and PET - [address] [address] 02/29/2024 14:30 EDT Appointment [facility] Radiology Nuclear Medicine and PET [address] [address] 03/01/2024 8:00 EDT Appointment [facility] Radiology Nuclear Medicine and PET [address] 112391 03/01/2024 9:30 EDT Appointment [facility] Radiology Nuclear Medicine and PET [address] [address] documented as of this encounter Visit Diagnoses [...]
--- OUTSIDE RECORDS SUMMARY | 2024-01-02 06:19 | XMS_ITS | Encounter Summary ---
Author Organization [facility] Address [address] [place] [address] Care Team Providers Care Train Conductor Name Role Phone Unavailable Primary Care Provider Unavailabl e Reason for Referral * Consult (Routine) - Specialty Report Received Specialty Diagnoses / Procedures Referred By [facility] t Referred To Contact Endocrinology Diagnoses Type 2 diabetes mellitus with other specified complication, unspecified whether senior care insulin use ([facility]) Teodoro Alejandro PA-C [address] [place] [address] [facility] Endocrinology [address] [place] [address] Referral ID Status Reason Start Date Expiration Date Visits Requested Visits Authorized [id number] Specialty Report Received Specialty Services Required 11/27/2019 1 1 Question Answer Reason for Request: patient has been seen last year. needs follow up to discuss whether or not she is a candidate for insulin pump Reason for Visit * Reason Comments Telemedicine Video Visit New Patient Visit Medications Refill lantus, metformin Encounter Details Date Type Department Care Team ([facility] Contact Info) Description 11/26/2019 15:30 EDT Telemedicine [facility] Adult Primary Care [facility] [address] [place] [address] Teodoro Alejandro PA-C 62 [facility] [address] [place] [address] Type 2 diabetes mellitus with other specified complication, unspecified whether intermission coordinator insulin use ([facility]) (Primary Dx); Left foot pain; Anxiety and [...] Lantus 25 units in the morning and [id number] mg once a day. Her fasting sugars [...] in October 2019. She follows up with [facility]. She is scheduled for a tubal procedure on December 13. 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 She did go to [facility] and had x-rays and was told that [...] mellitus with other specified complication, unspecified whether intermission coordinator insulin use ([facility]) Patient has type 2 diabetes that [...] Description 02/21/2024 9:45 EDT Office Visit [facility] Adult Primary Care - [address] [phone] Carrington Calderon MD [address] [phone] 02/27/2024 8:30 EDT Telemedicine [facility] Sleep Program - [address] 733541 Dwight Colbert [address] [place] [address] [phone] 02/29/2024 10:30 EDT Appointment [facility] Radiology Nuclear Medicine and PET [address] [phone] 02/29/2024 14:30 EDT Appointment [facility] Radiology Nuclear Medicine and PET [address] [phone] 03/01/2024 8:00 EDT Appointment [facility] Radiology Nuclear Medicine and PET [address] [phone] 03/01/2024 9:30 EDT Appointment [facility] Radiology Nuclear Medicine and PET [address] [phone] Scheduled Referrals Name Type Priority Associated Diagnoses Order Schedule AMB CONS/FOLLOW UP ENDOCRINOLOGY Outpatient Referral Routine Type 2 diabetes mellitus with other specified complication, unspecified whether senior care insulin use ([facility]) Ordered: 11/27/2019 documented as of this encounter Results * (ABNORMAL) C REACTIVE PROTEIN (11/28/2019 15:56 EDT) C-Reactive Protein 10.6(H) <10.0 mg/L 11/28/2019 17:12 [facility] Blood VENOUS BLOOD / Unknown Venipuncture / Unknown 11/28/2019 15:56 EDT 11/28/2019 15:56 EDT Teodoro Alejandro PA-C CHEMISTRY & BLOOD GAS ORDERABLES [facility] [address] [place] [address] * (ABNORMAL) COMPREHENSIVE METABOLIC PANEL (CMP) (11/28/2019 15:56 EDT) Sodium 134(L) 136 - 145 mEq/L 11/28/2019 17:12 [facility] Potassium 4.2 3.5 - 5.0 mEq/L 11/28/2019 17:12 [facility] Chloride 100 96 - 110 mEq/L 11/28/2019 17:12 [facility] CO2 Total 28 22 - 32 mEq/L 11/28/2019 17:12 [facility] Glucose 301(H) 70 - 100 mg/dL 11/28/2019 17:12 [facility] BUN 14 10 - 26 mg/dL 11/28/2019 17:12 [facility] Creatinine 0.57 0.52 - 1.04 mg/dL 11/28/2019 17:12 [facility] eGFR 121 >60 mL/min/1.7 3m2 11/28/2019 17:12 [facility] Comment:eGFR calculated usin g CKD-EPI equation for non- Americans. Multiply eGFR by 1.16 for patients. Total Protein 7.0 6.3 - 8.2 g/dL 11/28/2019 17:12 [facility] Albumin 3.9 3.4 - 4.9 g/dL 11/28/2019 17:12 [facility] Alkaline Phosphatase 100 38 - 126 U/L 11/28/2019 17:12 [facility] AST 17 15 - 46 U/L 11/28/2019 17:12 EDT [facility] ALT 14 <35 U/L 11/28/2019 17:12 [facility] Bilirubin, Total <0.5 <1.4 mg/dL 11/28/19 17:12 [facility] Calcium 9.8 8.5 - 10.5 mg/dL 11/28/2019 17:12 [facility] Calculated Calcium 9.9 8.5 - 10.5 mg/dL 11/28/2019 17:12 [facility] Blood VENOUS BLOOD / Unknown Venipuncture / Unknown 11/28/2019 15:56 EDT 11/28/2019 15:56 EDT Teodoro Alejandro PA-C CHEMISTRY & BLOOD GAS ORDERABLES [facility] [address] [place] [address] * (ABNORMAL) COMPLETE BLOOD COUNT AND DIFFERENTIAL (11/28/2019 15:56 EDT) WBC 14.38(H) 4.00 - 12.40 K/cmm 11/28/2019 17:04 [facility] RBC 4.69 3.86 - 5.04 M/cmm 11/28/2019 17:04 [facility] Hemoglobin 14.3 11.6 - 15.2 gm/dL 11/28/2019 17:04 [facility] HCT 40.8 34.9 - 44.4 % 11/28/2019 17:04 [facility] MCV 87 81 - 98 fl 11/28/2019 17:04 [facility] MCH 30.5 26.7 - 33.3 pg 11/28/2019 17:04 [facility] MCHC 35.0 32.1 - 35.9 gm/dL 11/28/2019 17:04 [facility] RDW-CV 12.0 <14.7 % 11/28/2019 17:04 [facility] RDW-SD 38.4 <50.4 fl 11/28/2019 17:04 EDT [facility] PLT 414(H) 141 - 377 K/cmm 11/28/2019 17:04 EDT [facility] MPV 10.1 9.5 - 12.7 fl 11/28/2019 17:04 EDT [facility] Type of Differential: Manual 11/28/2019 17:04 T [facility] Blood VENOUS BLOOD / Unknown Venipuncture / Unknown 11/28/2019 15:56 EDT 11/28/2019 15:56 EDT Teodoro Alejandro PA-C PACKAGES & D NA PROBE ORDERABLES [facility] [address] [place] [address] * (ABNORMAL) HEMOGLOBIN A1C (11/28/2019 15:56 EDT) Hemoglobin A1c 10.3(H) <5.7 % 11/29/2019 9:15 T [facility] Comment: Glycemic Status [...] Est Avg Glucose 249 mg/dL 0 9:15 T [facility] Comment: The eAG represents the A1c result expressed as average glucose in mg/dL. Blood VENOUS BLOOD / Unknown Venipuncture / Unknown 11/28/2019 15:56 EDT 11/28/2019 15:56 EDT Teodoro Alejandro PA-C CHEMISTRY & BLOOD GAS ORDERABLES Performing Organization Address [facility] Co de Phone Number [facility] [address] [place] [address] * THYROID CASCADE (11/28/2019 15:56 EDT) TSH 0.64 0.47 - 4.68 uIU/mL 11/28/2019 17:44 EDT [facility] Blood VENOUS BLOOD / Unknown Venipuncture / Unknown 11/28/2019 15:56 EDT 11/28/2019 15:56 EDT Narrative [facility] - 11/28/2019 17:44 EDT NOTE: TSH [place] is not recommended for patients in which pituitary or hypothalamic disorders are suspected. The results of this assay can be falsely lowered due to the consumption of Biotin. Teodoro Alejandro PA-C CHEMISTRY & BLOOD GAS ORDERABLES Performing Organization Address [facility] Co de Phone Number [facility] [address] [place] [address] * LIPID PROFILE (INCLUDES CHOLESTEROL, TRIGLYCERIDES, HDL, LDL) (11/28/2019 15:56 EDT) Pathologist [facility] Cholesterol 179 See Note mg/dL 11/28/2019 17:12 EDT [facility] Comment: Acceptable: ?<200 mg/dL Borderline High: 200-239 mg/dL High: ?> or = 240 mg/dL HDL 38 See Note mg/dL 11/28/2019 17:12 EDT [facility] Comment: Low: ? <40 mg/dL Normal: ??40-60 mg/dL High: ?>60 mg/dL LDL, Calculated 61 See Note mg/dL 11/28/2019 17:12 EDT [facility] Comment: Optimal: ? <100 mg/dL Near Optimal: ?100-129 mg/dL Borderline High: 130-159 mg/dL High: ?160-189 mg/dL Very High: ? > or = 190 mg/dL Triglyceride 398 See Note mg/dL 11/28/2019 17:12 EDT [facility] Comment: Normal: ? <150 mg/dL Borderline High: ??150 - 199 mg/dL High: ? 200 - 499 mg/dL Very High: ?> or = 500 mg/dL Chol/HDL Ratio 4.7 See Note 11/28/2019 17:12 EDT [facility] Comment: No reference range has been established for CHOL/HDL ratio. Non HDL Cholesterol 141 See Note mg/dL 11/28/2019 17:12 T [facility] Comment: Desirable: ?<130 mg/dL Borderline High: ??130-159 mg/dL High: ? 160-189 mg/dL Very High: ?> or = 190 mg/dL Blood VENOUS BLOOD / Unknown Venipuncture / Unknown 11/28/2019 15:56 EDT 11/28/2019 15:56 EDT Teodoro Alejandro PA-C CHEMISTRY & BLOOD GAS ORDERABLES [facility] [address] [place] [address] * (ABNORMAL) ALBUMIN, URINE (11/28/2019 15:56 EDT) Albumin, Urine 11.3 See Note mg/dL 2019 16:47 EDT [facility] Comment: NOTE: Reference range not established Creatinine, Urine 143.1 See Note mg/dL 11/28/2019 16:47 T [facility] Comment: NOTE: Reference range not established Lab Urine Albumin to Creatinine Ratio 79(H) <30 ug/mg Creatinine 11/28/2019 16:47 EDT [facility] Comment: Urine Albumin/Creatinine Ratio: Normal: <30 ug/mg Creatinine Moderately increased albuminuria: 30-300 ug/mg Creatinine Jatinder increased albuminuria: >300 ug/mg Creatinine Urine URINE SPECIMEN OBTAINED BY CLEAN CATCH PROCEDURE / Unknown Urine Collect / Unknown 11/28/2019 15:56 EDT 11/28/2019 15:56 EDT Teodoro Alejandro PA-C CHEMISTRY & BLOOD GAS ORDERABLES [facility] [address] [place] [address] documented in this encounter Visit Diagnoses Diagnosis Type 2 diabetes mellitus with other specified complication, unspecified whether intermission coordinator insulin use ([facility])- Primary Left foot pain Pain in limb [...]
--- OUTSIDE RECORDS SUMMARY | 2024-01-02 06:19 | XMS_ITS | Encounter Summary ---
Author Organization [facility] Address [address] [place] [address] Care Team Providers Care Custodial Aide Name Role Phone Unavailable Primary Care Provider Unavailabl e Reason for Visit * Reason Onset Date Comments Results 12/05/2019 Encounter Details Date Type Department Care Team (Late st Contact Info) Description 12/05/2019 Telephone [facility] Adult Primary Care - [address] 365301 Tonja Alejandro PA-C [address] [place] [address] [place] [phone] Results Social History Tobacco Use Types [...] the mild cellulitis. She will contact her INTERNAL COMMUNICATIONS WRITER and inform this of them as she [...] [facility] - [address] [phone] Carrington Calderon MD [address] [phone] 02/27/2024 8:30 EDT Telemedicine [facility] Sleep Program - [address] [phone] Dwight Colbert [address] [place] [phone] 02/29/2024 10:30 EDT Appointment [facility] Radiology Nuclear Medicine and PET [address] [phone] 02/29/2024 14:30 EDT Appointment [facility] Radiology Nuclear Medicine and PET [address] [phone] 03/01/2024 8:00 EDT Appointment [facility] Radiology Nuclear Medicine and PET - [address] [phone] 03/01/2024 9:30 EDT Appointment [facility] Radiology Nuclear Medicine and PET [address] [phone] documented as of this encounter Visit Diagnoses Not on filedocumented in this encounter
--- OUTSIDE RECORDS SUMMARY | 2024-01-02 06:19 | XMS_ITS | Encounter Summary ---
Author Organization [facility] Address [address] [place] [address] Care Team Providers Care Laundry Marker Supervisor Name Role Phone Unavailable Primary Care Provider Unavailabl e Reason for Visit * Reason Comments Telemedicine Video Visit Foot Pain Ankle Pain Encounter Details Date Type Department Care Team (Latest Contact Info) Description 12/28/2019 10:45 EDT Telemedicine [facility] Adult Primary Care - [address] 122361 Teodoro Alejandro PA-C 62 [facility] [address] [place] [address] Encounter for sterilization (Primary Dx); Type 2 diabetes mellitus with hyperosmolarity without coma, with long-term current use of insulin ([facility]); Left foot pain Social History Tobacco Use [...] and ankle. OBGYN: Patient followed up with [facility] on 11/02/2019 and a discussion was placed [...] Encounter for sterilization Patient will follow-up with [facility] regarding sterilization. Also discussed with patient about possiblevasectomy for her partner. Type 2 diabetes mellitus with hyperosmolarity without coma, with long-term current use of insulin ([facility]) Continue Lantus 30 mg daily. Continue [...] Visit [facility] Adult Primary Care - [address] [phone] Carrington Calderon MD [address] [phone] 02/27/2024 8:30 EDT Telemedicine [facility] Sleep Program - [address] [phone] Dwight Colbert [address] [place] [address] [phone] 02/29/2024 10:30 EDT Appointment [facility] Radiology Nuclear Medicine and PET [address] [phone] 02/29/2024 14:30 EDT Appointment [facility] Radiology Nuclear Medicine and PET [address] [id number] 03/01/2024 8:00 EDT Appointment [facility] Radiology Nuclear Medicine and PET [address] [phone] 03/01/2024 9:30 EDT Appointment [facility] Radiology Nuclear Medicine and PET [address] [phone] documented as of this encounter Visit Diagnoses Diagnosis Encounter for sterilization- Primary Sterilization Type 2 diabetes mellitus with hyperosmolarity without coma, with long-term current use of insulin ([facility]) Left foot pain Pain in limb documented in this encounter
--- OUTSIDE RECORDS SUMMARY | 2024-01-02 06:19 | XMS_ITS | Encounter Summary ---
Author Organization [facility] Address [address] [place] [address] Care Team Providers Care District Extension Service Agent Name Role Phone Unavailable Primary Care Provider Unavailabl e Reason for Visit * Reason Comments Diabetes * Consult (Routine) - Specialty Report Received Specialty Diagnoses / Procedures Referred By Contlesli t Referred To Contact Endocrinology Diagnoses Type 2 diabetes mellitus with other specified complication, unspecified whether senior living insulin use ([facility]) Tonja Alejandro PA-C [address] [place] [address] [facility] Endocrinology [address] [place] [address] Referral ID Status Reason Start Date Expiration Date Visits Requested Visits Authorized [id number] Specialty Report Received Specialty Services Required 11/27/2019 1 1 Encounter Details Date Type Department Care Team (Latest Contact Info) Description 11/30/2019 9:30 EDT Telemedicine [facility] Endocrinology - [facility] [address] [place] [address] Sara Zafar NP 62 [facility] [address] [place] [address] Anxiety and depression (Primary Dx); Type 2 diabetes mellitus with hyperosmolarity without coma, with long-term current use of insulin ([facility]) Social History Tobacco Use Types Packs/Day [...] APRN - 11/30/2019 0930 EDT Subjective: [facility] F/U Note TELEMEDICINE VIDEO [...] most recently terminated a at [facility] The most recent 10/28/2019. Recurrent loss is attributed to to poorly controlled type 2 diabetes in conjunction with tobacco dependence. She saw [facility]ET[facility] on 11/03/2018, and was advised to get diabetes in control, and to quit smoking both tobacco and pot. She is now scheduled for a tubal ligation December 14. 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 She did go to [facility] and had x-rays and was told thatit [...] siblings, knows about 2, no DM. 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 Previous [...] [facility] Adult Primary Care - [address] 162951 Carrington Calderon MD 1 [facility] 1 [place] [phone] 02/27/2024 8:30 EDT Telemedicine [facility] Sleep Program - [address] [phone] Dwight Colbert [address] [place] [address] [phone] 02/29/2024 10:30 EDT Appointment [facility] Radiology Nuclear Medicine and PET - [address] [phone] 02/29/2024 14:30 EDT Appointment [facility] Radiology Nuclear Medicine and PET - [address] [address] 03/01/2024 8:00 EDT Appointment [facility] Radiology Nuclear Medicine and PET [address] [address] 03/01/2024 9:30 EDT Appointment [facility] Radiology Nuclear Medicine and PET [address] [phone] documented as of this encounter Visit Diagnoses Diagnosis Anxiety and depression- Primary Dysthymic disorder Type 2 diabetes mellitus with hyperosmolarity without coma, with long-term current use of insulin ([facility]) documented in this encounter Discontinued Medications [...]
--- OUTSIDE RECORDS SUMMARY | 2024-01-02 06:19 | XMS_ITS | Encounter Summary ---
Author Organization [facility] Address [address] [place] [address] Care Team Providers Care Parts Administrator Name Role Phone Unavailable Primary Care Provider Unavailabl e Reason for Visit * Reason Onset Date Comments Wound Infection 03/04/2020 Toe Pain 03/04/2020 Encounter Details Date Type Department Care Team (Late st Contact Info) Description 03/04/2020 Telephone [facility] Adult Primary Care [address] [address] Tonja Alejandro PA-C [address] [place] [address] [place] [phone] Wound Infection; Toe Pain Social History [...] Visit [facility] Adult Primary Care - [address] [address] Carrington Calderon MD 1 [facility] 1 [place] [address] 02/27/2024 8:30 EDT Telemedicine [facility] Sleep Program - [address] [address] Dwight Colbert [address] [place] [address] 02/29/2024 10:30 EDT Appointment [facility] Radiology Nuclear Medicine and PET [address] [phone] 02/29/2024 14:30 EDT Appointment [facility] Radiology Nuclear Medicine and PET [address] [phone] 03/01/2024 8:00 EDT Appointment [facility] Radiology Nuclear Medicine and PET [address] [phone] 03/01/2024 9:30 EDT Appointment [facility] Radiology Nuclear Medicine and PET [address] [phone] documented as of this encounter Visit Diagnoses Not on filedocumented in this encounter
--- OUTSIDE RECORDS SUMMARY | 2024-01-02 06:19 | XMS_ITS | Encounter Summary ---
Author Organization [facility] Address [address] [place] [address] Care Team Providers Care Resident Care Technician Name Role Phone None, Provider Primary Care Provider Unavailabl e Reason for Visit * Reason Onset Date Comments COVID-19 11/22/2019 Encounter Details Date Type Department Care Team (Late st Contact Info) Description 11/22/2019 Orders Only [facility] Women's Services [address] [address] Susana Tomlinson, RN Sterilization (Primary Dx) Social [...] [facility] Adult [facility] - [address] [phone] Carrington Calderon MD [address] [phone] 02/27/2024 8:30 EDT Telemedicine [facility] Sleep Program - [address] [phone] Dwight Colbert [address] [place] [address] 02/29/2024 10:30 EDT [facility] Radiology Nuclear Medicine and PET - [address] [address] 02/29/2024 14:30 EDT [facility]ointment [facility] Radiology Nuclear Medicine and PET [address] [phone] 03/01/2024 8:00 EDT [facility] Nuclear Medicine and PET [address] [phone] 03/01/2024 9:30 EDT Appointment [facility] Radiology Nuclear Medicine and PET [address] [phone] documented as of this encounter Visit Diagnoses Diagnosis Sterilization- Primary documented in this encounter Care Teams Resident Care Technician Relationship Specialty Start Date End Date None, Provider PCP - General 06/18/19 11/25/19 documented as of this encounter
--- OUTSIDE RECORDS SUMMARY | 2024-01-02 06:19 | XMS_ITS | Encounter Summary ---
Author Organization [facility] Address [address] [place] [address] Care Team Providers Care Manager Protein Name Role Phone None, Provider Primary Care Provider Unavailabl e Reason for Visit * Reason Onset Date Comments Pharmacy 10/29/2019 Encounter Details Date Type Department Care Team (Late st Contact Info) Description 10/29/2019 Telephone [facility] - [facility] [address] [place] [address] Monique Gramajo, GUSTAVO [address] [place] [address] Pharmacy Social History Tobacco Use [...] [facility] [place] 1 [place] [address] Carrington Calderon MD 1 [facility] 1 [place] [phone] 02/27/2024 8:30 EDT Telemedicine [facility] Sleep Program - [address] [place] [address] [place] [address] Dwight Colbert [address] [place] [address] 02/29/2024 10:30 EDT Appointment [facility] Radiology Nuclear Medicine and PET - [address] [address] 02/29/2024 14:30 EDT Appointment [facility] Radiology Nuclear Medicine and PET - [address] [phone] 03/01/2024 8:00 EDT Appointment [facility] Radiology Nuclear Medicine and PET - [address] [phone] 03/01/2024 9:30 EDT Appointment [facility] Radiology Nuclear Medicine and PET - [address] [address] documented as of this encounter Visit Diagnoses Not on filedocumented in this encounter Care Teams Manager Protein Relationship Specialty Start Date End Date None, Provider PCP - General 06/18/19 11/25/19 documented as of this encounter
--- OUTSIDE RECORDS SUMMARY | 2024-01-02 06:19 | XMS_ITS | Encounter Summary ---
Author Organization [facility] Address [address] [place] [address] Care Team Providers Care Drawing In Machine Tender Name Role Phone None, Provider Primary Care Provider Unavailabl e Reason for Visit * Reason Comments Social Work Encounter Details Date Type Department Care Team (Late st Contact Info) Description 11/05/2019 Community Health Team [facility] Women's Services - [address] [address] Eryn Diaz Social History Tobacco Use Types [...] and her grieving process. Pt lives in [place] with Fermin, her 8 yo step francois [...] 11/25 via zoom - emailed pt link. [facility] Total Time: 1.5 hours total 1 hour, 5 min via zoom with pt 5 min via email with pt 20 min charting Referral: [facility] Follow up: Date: Tuesday, November 26, 2019 Time: 10 AM With: Eryn Diaz Manager Air Location: zoom Status: Active documented in this encounter Plan of Treatment Upcoming Encounters Date Type Department Care Team (Late st Contact Info) Description 02/21/2024 9:45 EDT Office Visit [facility] Adult Primary Care - [address] [phone] Carrington Calderon MD [address] [phone] 02/27/2024 8:30 EDT Telemedicine [facility] Sleep Program - [address] [address] Dwight Colbert [address] [place] [address] [phone] 02/29/2024 10:30 EDT Appointment [facility] Radiology Nuclear Medicine and PET - [address] [phone] 02/29/2024 14:30 EDT Appointment [facility] Radiology Nuclear Medicine and PET - [address] [phone] 03/01/2024 8:00 EDT Appointment [facility] Radiology Nuclear Medicine and PET - [address] [address] 03/01/2024 9:30 EDT Appointment [facility] Radiology Nuclear Medicine and PET - [address] [address] documented as of this encounter Visit Diagnoses Not on filedocumented in this encounter Care Teams Drawing In Machine Tender Relationship Specialty Start Date End Date None, Provider PCP - General 06/18/19 11/25/19 documented as of this encounter
--- OUTSIDE RECORDS SUMMARY | 2024-01-02 06:19 | XMS_ITS | Encounter Summary ---
Author Organization [facility] Address [address] [place] [address] Care Team Providers Care Outside Plant Technician Name Role Phone Unavailable Primary Care Provider Unavailabl e Reason for Visit * Reason Comments Foot Ulcer pt has had foot ulce r for 2.5 mo on left great toe, sent here by primary Encounter Details Date Type Department Care Team (Late st Contact Info) Description 03/04/2020 14:31 EDT - 03/04/2020 16:32 EDT Emergency [facility] Emergency Department - [address] [address] Mayank Cruz MD 111 [facility], Level 1 [place] [address] 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 * Diabetic Foot Ulcer (Malagasy) documented in this encounter Medications at Time [...] conditions at the [facility] on 03/04/2020 Scribe Attestation: This documentation [...] Stable * Eryn Lunsford RN - 03/04/2020 1694 EDT Patient to ED with c/o worsening [...] [facility] Adult Primary Care - [address] 163881 Carrington Calderon MD [address] [address] 02/27/2024 8:30 EDT Telemedicine [facility] Sleep Program - [address] 914561 Dwight Colbert [address] [place] [phone] 02/29/2024 10:30 EDT Appointment [facility] Radiology Nuclear Medicine and PET [address] [phone] 02/29/2024 14:30 EDT Appointment [facility] Radiology Nuclear Medicine and [address] [phone] 03/01/2024 8:00 EDT Appointment [facility] Radiology Nuclear Medicine and PET [address] [phone] 03/01/2024 9:30 EDT Appointment [facility] Radiology Nuclear Medicine and PET [address] [phone] documented as of this encounter Procedures Procedure [...] views of the left foot Procedure Note Akselrod, Wilian Javier, MD - 03/04/2020 XR FOOT LEFT 3 [...] fascia. Type II osnaviculare. Scott Harrington MD [facility] DIAGNOSTIC IMAGI NG ORDERABLES * XR TOE [...] ofthe great toe noted. Scott Harrington MD [facility] DIAGNOSTIC IMAGI NG ORDERABLES * BACTERIAL CULTURE, BLOOD (03/04/2020 15:20 EDT) Organism ID No Growth at 5 days 03/09/2020 15:45 EDT [facility] Blood VENOUS BLOOD / Unknown Blood Culture / Unknown 03/04/2020 15:20 EDT 03/04/2020 15:38 EDT Scott Harrington MD MICROBIOLOGY - GENER AL ORDERABLES Performing Organization Address [facility] Co de Phone Number [facility] [address] [place] [address] * (ABNORMAL) GLUCOSE, SERUM (03/04/2020 15:03 EDT) Glucose 273(H) 70 - 100 mg/dL 03/04/2020 15:40 EDT [facility] Blood VENOUS BLOOD / Unknown Venipuncture / Unknown 03/04/2020 15:03 EDT 03/04/2020 15:11 EDT Scott Harrington MD CHEMISTRY & BLOOD GA S ORDERABLES Performing Organization Address [facility] de Phone Number [facility] [address] [place] [address] * (ABNORMAL) CREATININE (03/04/2020 15:03 EDT) Creatinine 0.41(L) 0.52 - 1.04 mg/dL 03/04/2020 15:40 EDT [facility] eGFR 135 >60 mL/min/1.7 3m2 03/04/2020 15:40 EDT [facility] Comment:eGFR calculated gil curtis CKD-EPI equation for non- Americans. Multiply eGFR by 1.16 for patients. Blood VENOUS BLOOD / Unknown Venipuncture / Unknown 03/04/2020 15:03 EDT 03/04/2020 15:11 EDT Scott Harrington MD CHEMISTRY & BLOOD GA S ORDERABLES Performing Organization Address [facility]/ZIP Co de Phone Number [facility] [address] [place] [address] * BUN (03/04/2020 15:03 EDT) [facility] BUN 13 10 - 26 mg/dL 03/04/2020 15:43 EDT [facility] Comment: Slight hemolysis identified, interpret with caution as results may be affected due to hemolysis. Blood VENOUS BLOOD / Unknown Venipuncture / Unknown 03/04/2020 15:03 EDT 03/04/2020 15:11 EDT Scott Harrington MD CHEMISTRY & BLOOD GA S ORDERABLES [facility] [address] [place] [address] * ELECTROLYTES (03/04/2020 15:03 EDT) [facility] Sodium 140 136 - 145 mEq/L 03/04/2020 15:43 EDT [facility] Potassium 4.3 3.5 - 5.0 mEq/L 03/04/2020 15:43 EDT [facility] Comment: Slight hemolysis identified, interpret with caution as hemolysis will elevate potassium result. NOTE: Interpret with caution. Prolonged sample storage may alter the result. Chloride 99 96 - 110 mEq/L 03/04/2020 15:43 EDT [facility] CO2 Total 30 22 - 32 mEq/L 03/04/2020 15:43 EDT [facility] Comment: NOTE: Interpret with caution. Prolonged sample storage may alter the result. Blood VENOUS BLOOD / Unknown Venipuncture / Unknown 03/04/2020 15:03 EDT 03/04/2020 15:11 EDT Scott Harrington MD CHEMISTRY & BLOOD GA S ORDERABLES Performing Organization Address City/[facility]/ZIP Co de Phone Number [facility] [address] [place] [address] * (ABNORMAL) SED. RATE:WESTERGREN (03/04/2020 15:03 EDT) [facility] Sed Rate 54(H) 0 - 20 mm/hr 03/04/2020 16:19 EDT [facility] Blood VENOUS BLOOD / Unknown Venipuncture / Unknown 03/04/2020 15:03 EDT 03/04/2020 15:11 EDT Scott Harrington MD HEMATOLOGY & PF4 ORD ERABLES Performing Organization Address [facility] Co de Phone Number [facility] [address] [place] [address] * (ABNORMAL) C REACTIVE PROTEIN (03/04/2020 15:03 EDT) C-Reactive Protein 33.5(H) <10.0 mg/L 03/04/2020 15:40 EDT [facility] Blood VENOUS BLOOD / Unknown Venipuncture / Unknown 03/04/2020 15:03 EDT 03/04/2020 15:11 EDT Scott Harrington MD CHEMISTRY & BLOOD GA S ORDERABLES Performing Organization Address [facility] de Phone Number [facility] [address] [place] [address] * (ABNORMAL) COMPLETE BLOOD COUNT (03/04/2020 15:03 EDT) WBC 14.64(H) 4.00 - 12.40 K/cmm 03/04/2020 15:30 EDT [facility] RBC 4.58 3.86 - 5.04 M/cmm 03/04/2020 15:30 EDT [facility] Hemoglobin 14.1 11.6 - 15.2 gm/dL 03/04/2020 15:30 EDT [facility] HCT 40.0 34.9 - 44.4 % 03/04/2020 15:30 EDT [facility] MCV 87 81 - 98 fl 03/04/2020 15:30 EDT [facility] MCH 30.8 26.7 - 33.3 pg 03/04/2020 15:30 EDT [facility] MCHC 35.3 32.1 - 35.9 gm/dL 03/04/2020 15:30 EDT [facility] RDW-CV 12.3 <14.7 % 03/04/2020 15:30 EDT [facility] RDW-SD 39.5 <50.4 fl 03/04/2020 15:30 EDT [facility] PLT 414(H) 141 - 377 K/cmm 03/04/2020 15:30 EDT [facility] MPV 9.8 9.5 - 12.7 fl 03/04/2020 15:30 EDT [facility] Blood VENOUS BLOOD / Unknown Venipuncture / Unknown 03/04/2020 15:03 EDT 03/04/2020 15:11 EDT Scott Harrington MD HEMATOLOGY & PF4 ORD ERABLES [facility] [address] [place] [address] * HOLD SST (03/04/2020 15:03 EDT) Hold Hold 03/04/2020 16:15 EDT [facility] Blood VENOUS BLOOD / Unknown Venipuncture / Unknown 03/04/2020 15:03 EDT 03/04/2020 15:11 EDT Mayank Cruz MD LAB INFO SERVICE AND SUPPORT & PHONE RESULT Performing Organization Address City/[facility]/ZIP Co de Phone Number [facility] [address] [place] [address] * HOLD LAVENDER TOP (03/04/2020 15:03 EDT) Hold Hold 03/04/2020 16:15 EDT [facility] Blood VENOUS BLOOD / Unknown Venipuncture / Unknown 03/04/2020 15:03 EDT 03/04/2020 15:11 EDT Mayank Cruz MD LAB INFO SERVICE AND SUPPORT & PHONE RESULT Performing Organization Address City/[facility]/ZIP Co de Phone Number [facility] [address] [place] [address] * HOLD GREEN TOP (03/04/2020 15:03 EDT) Hold Hold 03/04/2020 16:15 EDT [facility] Blood VENOUS BLOOD / Unknown Venipuncture / Unknown 03/04/2020 15:03 EDT 03/04/2020 15:11 EDT Mayank Cruz MD LAB INFO SERVICE AND SUPPORT & PHONE RESULT [facility] [address] [place] [address] * HOLD BLUE TOP (03/04/2020 15:03 EDT) Hold Hold 03/04/2020 16:15 EDT [facility] Blood VENOUS BLOOD / Unknown Venipuncture / Unknown 03/04/2020 15:03 EDT 03/04/2020 15:11 EDT Mayank Cruz MD LAB INFO SERVICE AND SUPPORT & PHONE RESULT Performing Organization Address City/[facility] Co de Phone Number [facility] [address] [place] [address] documented in this encounter Visit Diagnoses Diagnosis 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
--- OUTSIDE RECORDS SUMMARY | 2024-01-02 06:19 | XMS_ITS | Encounter Summary ---
Author Organization [facility] Address [address] [place] [address] Care Team Providers Care Relay Engineer Name Role Phone Unavailable Primary Care Provider Unavailabl e Reason for Visit * Reason Comments Social Work Encounter Details Date Type Department Care Team (Late st Contact Info) Description 12/19/2019 Community Health Team [facility] Women's Services - [address] [address] Eryn Diaz Social History Tobacco Use Types [...] [place] Primary Care - [address] 514191 Carrington Calderon MD [address] [phone] 02/27/2024 8:30 EDT Telemedicine [facility] Sleep Program - [address] [phone] Dwight Colbert [address] [place] [address] [phone] 02/29/2024 10:30 EDT Appointment [facility] Radiology Nuclear Medicine and PET - [address] [phone] 02/29/2024 14:30 EDT Appointment [facility] Radiology Nuclear Medicine and PET - [address] [phone] 03/01/2024 8:00 EDT Appointment [facility] Radiology Nuclear Medicine and PET - [address] [phone] 03/01/2024 9:30 EDT Appointment [facility] Radiology Nuclear Medicine and PET - [address] [phone] documented as of this encounter Visit Diagnoses Not on filedocumented in this encounter
--- OUTSIDE RECORDS SUMMARY | 2024-01-02 06:19 | XMS_ITS | Encounter Summary ---
Author Organization [facility] Address [address] [place] [address] Care Team Providers Care Beach Lifeguard Name Role Phone Unavailable Primary Care Provider Unavailabl e Encounter Details Date Type Department Care Team (Latest Contact Info) Description 01/01/2020 8:37 EDT - 01/01/2020 23:59 EDT Hospital Encounter [facility] [address] [place], [place] [phone] Discharge Disposition: Home or Self Care Social [...] [facility] Care [address] [address] Carrington Calderon MD [address] [place] [address] 1 [place] [address] 02/27/2024 8:30 EDT Telemedicine [facility] Sleep Program - [address] [address] Dwight Colbert [address] [place] [address] [phone] 02/29/2024 10:30 EDT Appointment [facility] Radiology Nuclear Medicine and PET [address] 679001 02/29/2024 14:30 EDT Appointment [facility] Radiology Nuclear Medicine and PET [address] [phone] 03/01/2024 8:00 EDT Appointment [facility] Radiology Nuclear Medicine and PET [address] [phone] 03/01/2024 9:30 EDT Appointment [facility] Radiology Nuclear Medicine and PET [address] [phone] documented as of this encounter Procedures Procedure [...]
--- OUTSIDE RECORDS SUMMARY | 2024-01-02 06:19 | XMS_ITS | Encounter Summary ---
Author Organization [facility] Address [address] [place] [address] Care Team Providers Care Brusher Machine Name Role Phone Unavailable Primary Care Provider Unavailabl e Reason for Visit * Reason Onset Date Comments Update 12/06/2019 Encounter Details Date Type Department Care Team (Late st Contact Info) Description 12/06/2019 Telephone [facility] Gynecologic Oncology - [address] 863181 Charu Flynn MD 111 [facility], Level 4 [place] [address] Update Social History Tobacco Use [...] Info) Description 02/21/2024 9:45 EDT Office Visit [facility] Adult Primary Care - [address] [phone] Carrington Calderon MD [address] [place] [address] 1 [place] [phone] 02/27/2024 8:30 EDT Telemedicine [facility] Sleep Program - [address] 847961 Dwight Colbert [address] [place], [place] 2038[address] 02/29/2024 10:30 EDT [facility]ointment [facility] Radiology Nuclear Medicine and PET - [address] [address] 02/29/2024 14:30 EDT [facility] Radiology Nuclear Medicine and PET - [address] [address] 03/01/2024 8:00 EDT Appointment [facility] Radiology Nuclear Medicine and PET - [address] [address] 03/01/2024 9:30 EDT [facility]ment [facility] Radiology Nuclear Medicine and PET - [address] [address] documented as of this encounter Visit Diagnoses Not on filedocumented in this encounter
--- OUTSIDE RECORDS SUMMARY | 2024-01-02 06:19 | XMS_ITS | Encounter Summary ---
Author Organization [facility] Address [address] [place] [address] Care Team Providers Care Reweaver Name Role Phone None, Provider Primary Care Provider Unavailabl e Reason for Visit * Reason Comments Social Work Encounter Details Date Type Department Care Team (Late st Contact Info) Description 10/16/2019 Community Health Team [facility] Women's Services - [address] [address] Eryn Diaz Social History Tobacco Use Types [...] lbs. [facility] that she believes caused SI/SP. Pt rep she was on a bridge in [place] and about to jump to lots of [...] SW rec pt at least check out [facility]'s website - described this thx practice was [...] to facilitate record request. Jordyn will submit [facility] SW referral later this week; SW will zandra pt status as pending for now. Next SW appt 11/04 via ph. SW will email pt zoom meeting info ([email or web address]). [facility] Total Time: 1 hour total 35 min via ph with pt 10 min care coord 15 min charting Referral: Yobany José and PMHNP Denita Brantley Follow up: Date: Tuesday, November 05, 2019 Time: 10 AM With: Eryn Diaz Contract Driver Location: ph Status: Pending documented in this encounter Plan of Treatment Upcoming Encounters Date Type Department Care Team (Late st Contact Info) Description 02/21/2024 9:45 EDT Office Visit [facility] Adult Primary Care - [address] [phone] Carrington Calderon MD [address] [place] [phone] 02/27/2024 8:30 EDT Telemedicine [facility] Sleep Program - [address] [phone] Dwight Colbert [address] [place], [place] 9834[address] 02/29/2024 10:30 [facility] [address] [address] 02/29/2024 14:30 EDT Appointment [facility] Radiology Nuclear Medicine and PET [address] [address] 03/01/2024 8:00 EDT Appointment [facility] Radiology Nuclear Medicine and PET [address] [address] 03/01/2024 9:30 EDT Appointment [facility] Radiology Nuclear Medicine and PET [address] [address] documented as of this encounter Visit Diagnoses Not on filedocumented in this encounter Care Teams Reweaver Relationship Specialty Start Date End Date None, Provider PCP - General 06/18/19 11/25/19 documented as of this encounter
--- OUTSIDE RECORDS SUMMARY | 2024-01-02 06:19 | XMS_ITS | Encounter Summary ---
Author Organization [facility] Address [address] [place] [address] Care Team Providers Care Wildlife Conservation Officer Name Role Phone Unavailable Primary Care [...] [facility] Adult Primary Care - [address] [address] Carrington Calderon MD [address] [phone] 02/27/2024 8:30 EDT Telemedicine [facility] Sleep Program - [address] [address] Dwight Colbert [address] [place] [address] 02/29/2024 10:30 EDT Appointment [facility] Radiology Nuclear Medicine and PET [address] [phone] 02/29/2024 14:30 EDT Appointment [facility] Radiology Nuclear Medicine and PET [address] 858231 03/01/2024 8:00 EDT Appointment [facility] Radiology Nuclear Medicine and PET [address] [phone] 03/01/2024 9:30 EDT Appointment [facility] Radiology Nuclear Medicine and PET [address] 332261 documented as of this encounter Visit Diagnoses Not on filedocumented in this encounter
--- OUTSIDE RECORDS SUMMARY | 2024-01-02 06:19 | XMS_ITS | Encounter Summary ---
Author Organization [facility] Address [address] [place] [address] Care Team Providers Care Iso Coordinator Name Role Phone Unavailable Primary Care [...] [facility] Adult Primary Care - [address] [address] Carrington Calderon MD [address] [address] 02/27/2024 8:30 EDT Telemedicine [facility] Sleep Program - [address] [address] Dwight Colbert [address] [place] [phone] 02/29/2024 10:30 EDT Appointment [facility] Radiology Nuclear Medicine and PET [address] [phone] 02/29/2024 14:30 EDT Appointment [facility] Radiology Nuclear Medicine and PET [address] [address] 03/01/2024 8:00 EDT Appointment [facility] Radiology Nuclear Medicine and PET [address] 750681 03/01/2024 9:30 EDT Appointment [facility] Radiology Nuclear Medicine and PET [address] [phone] documented as of this encounter Visit Diagnoses Not on filedocumented in this encounter
--- OUTSIDE RECORDS SUMMARY | 2024-01-02 06:19 | XMS_ITS | Encounter Summary ---
Author Organization [facility] Address [address] [place] [address] Care Team Providers Care Decorating And Assembly Supervisor Name Role Phone Unavailable Primary Care Provider Unavailabl e Reason for Visit * Reason Onset Date Comments Medication Problem 11/27/2019 Encounter Details Date Type Department Care Team (Late st Contact Info) Description 11/27/2019 Telephone [facility] Adult Primary Care - [address] 678121 Tonja Alejandro PA-C [facility] [address] [place] [phone] Medication Problem Social History Tobacco Use [...] Porras - 11/27/2019 0903 EDT [facility] states insulin glargine is dispensed in 15 ml quantities. Currently prescription is written for 7.5 ml with 2 refills. Olive requests clarification of quantity and refills. documented in this encounter Plan of Treatment Upcoming Encounters Date Type Department Care Team (Late st Contact Info) Description 02/21/2024 9:45 EDT Office Visit [facility] Adult Primary Care - [address] [phone] Carrington Calderon MD 1 [facility] 1 [place] [address] 02/27/2024 8:30 EDT Telemedicine [facility] Sleep Program - [address] 299571 Dwight Colbert [address] [place] [address] [phone] 02/29/2024 10:30 EDT [facility] Radiology Nuclear Medicine and PET [address] [address] 02/29/2024 14:30 EDT [facility] [address] [id number] 03/01/2024 8:00 EDT [facility]ointment [facility] Radiology Nuclear Medicine and PET - [address] [phone] 03/01/2024 9:30 EDT Appointment [facility] Radiology Nuclear Medicine and PET [address] [phone] documented as of this encounter Visit Diagnoses Not on filedocumented in this encounter Discontinued Medications Medication Sig Discontinue Reason Start Date End Da te insulin glargine (LANTUS SOLOSTAR) 100 unit/mL (3 mL) injection pen Inject 25 Units into the skin at bedtime for 90 days. Reorder 11/26/2019 11/27/2019 documented as of this encounter
--- OUTSIDE RECORDS SUMMARY | 2024-01-02 06:19 | XMS_ITS | Encounter Summary ---
Author Organization [facility] Address [address] [place] [address] Care Team Providers Care Spiral Binder Name Role Phone Unavailable Primary Care Provider Unavailabl e Reason for Visit * Reason Comments Foot Problem * Consult (Routine/Next Available) - Order Cancelled Specialty Diagnoses / Procedures Referred By Kit goode Referred To Contact Orthopedic Surgery Diagnoses Left foot pain Sore on toe Tonja Alejandro PA-C [address] [facility] [address] [place] [address] [facility] Ortho Foot And Ankle [address] [place] [address] Referral ID Status Reason Start Date Expiration Date Visits Requested Visits Authorized [id number] Order Cancelled Specialty Services Required 11/28/2019 1 1 Encounter Details Date Type Department Care Team (Late st Contact Info) Description 01/01/2020 8:00 EDT Office Visit [facility] Center Foot & Ankle Program - [facility] [place] [address] Elza Navarro DPM [address] [place] [address] Chronic pain of left ankle (Primary Dx); Ulcerated, foot, left, with fat layer exposed ([facility]); Type 2 diabetes mellitus with diabetic polyneuropathy, with long-term current use of insulin ([facility]) Social History Tobacco Use Types Packs/Day [...] arthritis 09/04/2015 ??? Type 2 diabetes mellitus ([facility]) 09/03/2015 ??? Anxiety and depression 05/12/2010 ??? Migraine with aura and without status migrainosus, not intractable Past Medical History: Diagnosis Date ??? Anxiety ??? Arthritis 12/05/19- Spine- told years ago ??? Diabetes ([facility]) A1c 10.3 on 11/28/2019 ??? History [...] 27 mL 3 ??? lancets One Touch DelPrescription Eyewear or other brand compatible with lancing device [...] around the ulcer. Protective sensation absent via [place] monofilament 0 out of 10. Left [...] prepared with speech recognition software or keyboard etl data architect techniques. Minor irregularities or keyboarding misprints may be present documented in this encounter Plan of Treatment Upcoming Encounters Date Type Department Care Team (Late st Contact Info) Description 02/21/2024 9:45 EDT Office Visit [facility] Adult Primary Care - [address] [address]001 Carrington Calderon MD [address] [address] 02/27/2024 8:30 EDT Telemedicine [facility] Sleep Program - [address] [phone] Dwight Colbert [address] [place] [phone] 02/29/2024 10:30 EDT Appointment [facility] Radiology Nuclear Medicine and PET - [address] [phone] 02/29/2024 14:30 EDT Appointment [facility] Radiology Nuclear Medicine and PET [address] [phone] 03/01/2024 8:00 EDT Appointment [facility] Radiology Nuclear Medicine and PET [address] [phone] 03/01/2024 9:30 EDT Appointment [facility] Radiology Nuclear Medicine and PET [address] [phone] documented as of this encounter Procedures Procedure Name Priority Date/Time Associated Diagnosis Comments XR ANKLE LEFT 3 OR MORE VIEWS Routine 01/01/2020 8:53 EDT Chronic pain of left ankle XR FOOT LEFT 3 OR MORE VIEWS Routine 01/01/2020 8:52 EDT Ulcerated, foot, left, with fat layer exposed ([facility]) Type 2 diabetes mellitus with diabetic polyneuropathy, with long-term current use of insulin ([facility]) documented in this encounter Results * [...] foot and around the ankle. Elza Navarro DPDickson IMG DIAGNOSTIC IMAGI NG ORDERABLES documented in this encounter Visit Diagnoses Diagnosis Chronic pain of left ankle- Primary Ulcerated, foot, left, with fat layer exposed ([facility]) Type 2 diabetes mellitus with diabetic polyneuropathy, with long-term current use of insulin ([facility]) documented in this encounter Orders Equipment Count Last Ordered Date First Orde red Date GENERIC ORTHO VENDOR DME 1 01/01/2020 documented in this encounter
--- OUTSIDE RECORDS SUMMARY | 2024-01-02 06:19 | XMS_ITS | Encounter Summary ---
Author Organization [facility] Address [address] [place] [address] Care Team Providers Care Rolled Gold Plater Name Role Phone Unavailable Primary Care Provider Unavailabl e Encounter Details Date Type Department Care Team (Late st Contact Info) Description 11/28/2019 16:00 EDT Phlebotomy Only [facility] Laboratory Services - [address] [address] [facility] [place] [place] [facility] Type 2 diabetes mellitus with other specified complication, unspecified whether senior care insulin use ([facility]); Anxiety and depression; Left foot pain Social [...] [facility] Adult Primary Care - [address] 160891 Carrington Calderon MD [address] [address] 02/27/2024 8:30 EDT Telemedicine [facility] Sleep Program - [address] [phone] Dwight Colbert [address] [place] [phone] 02/29/2024 10:30 EDT Appointment [facility] Radiology Nuclear Medicine and PET [address] [id number] 02/29/2024 14:30 EDT Appointment [facility] Radiology Nuclear Medicine and PET [address] [id number] 03/01/2024 8:00 EDT Appointment [facility] Radiology Nuclear Medicine and PET [address] [phone] 03/01/2024 9:30 EDT Appointment [facility] Radiology Nuclear Medicine and PET [address] [phone] documented as of this encounter Procedures Procedure Name Priority Date/Time Associated Diagnosis Comments DIFFERENTIAL, AUTOMATED MANUAL Today 11/28/2019 15:56 EDT Left foot pain THYROID CASCADE Routine 11/28/2019 15:56 EDT Anxiety and depression URINE [id number] RATIO (ACR) Routine 11/28/2019 15:56 EDT Type 2 diabetes mellitus with other specified complication, unspecified whether senior care insulin use ([facility]) COMPLETE BLOOD COUNT AND DIFFERENTIAL Routine 11/28/2019 15:56 EDT Left foot pain C REACTIVE PROTEIN Routine 11/28/2019 15 :56 EDT Left foot pain HEMOGLOBIN A1C Routine 11/28/2019 15:56 EDT Type 2 diabetes mellitus with other specified complication, unspecified whether senior care insulin use ([facility]) LIPID PROFILE (INCLUDES CHOLESTEROL, TRIGLYCERIDES, HDL, LDL) Routine 11/28/2019 15:56 EDT Type 2 diabetes mellitus with other specified complication, unspecified whether senior care insulin use ([facility]) COMPREHENSIVE METABOLIC PANEL (CMP) Routine 11/28/2019 15:56 EDT Type 2 diabetes mellitus with other specified complication, unspecified whether senior care insulin use ([facility]) documented in this encounter Results * (ABNORMAL) DIFFERENTIAL, AUTOMATED MANUAL (11/28/2019 15:56 EDT) % Neutrophils 45.7 % 11/28/2019 17:50 EDT [facility] % Banded Neutrophils 0.9 % [facility] % Lymphocytes 37.1 % 11/28/2019 17:50 [facility] % Atypical Lymphocytes 7.7 % 11/28/2019 17:50 [facility] % Monocytes 4.3 % 11/28/2019 17:50 [facility] % Eosinophils 2.6 % 11/28/2019 17:50 [facility] % Basophils 1.7 % 11/28/2019 17:50 [facility] Absolute Neutrophils 6.57 2.20 - 8.85 K/cmm 11/28/2019 17:50 [facility] Absolute Bands 0.13 K/cmm 11/28/2019 17:50 [facility] Absolute Lymphocytes 5.33(H) 1.09 - 3.30 K/cmm 11/28/2019 17:50 EDT [facility] Absolute Atypical Lymphocytes 1.11 K/cmm 11/28/2019 17:50 [facility] Absolute Monocytes 0.62 0.10 - 0.80 K/cmm 11/28/2019 17:50 [facility] Absolute Eosinophils 0.37 0.03 - 0.61 K/cmm 11/28/2019 17:50 [facility] ABS Basophils 0.24(H) 0.01 - 0.11 K/cmm 11/28/2019 17:50 EDT [facility] Blood VENOUS BLOOD / Unknown Venipuncture / Unknown 11/28/2019 15:56 EDT 11/28/2019 15:56 EDT Tonja Alejandro PA-C HEMATOLOGY & PF4 ORDERABLES [facility] [address] [place] [address] * (ABNORMAL) C REACTIVE PROTEIN (11/28/2019 15:56 EDT) C-Reactive Protein 10.6(H) <10.0 mg/L 11/28/2019 17:12 EDT [facility] Blood VENOUS BLOOD / Unknown Venipuncture / Unknown 11/28/2019 15:56 EDT 11/28/2019 15:56 EDT Tonja Alejandro PA-C CHEMISTRY & BLOOD GAS ORDERABLES [facility] [address] [place] [address] * (ABNORMAL) COMPREHENSIVE METABOLIC PANEL (CMP) (11/28/2019 15:56 EDT) Sodium 134(L) 136 - 145 mEq/L 11/28/2019 17:12 [facility] Potassium 4.2 3.5 - 5.0 mEq/L 11/28/2019 17:12 [facility] Chloride 100 96 - 110 mEq/L 11/28/2019 17:12 [facility] CO2 Total 28 22 - 32 mEq/L 11/28/2019 17:12 [facility] Glucose 301(H) 70 - 100 mg/dL 11/28/2019 17:12 [facility] BUN 14 10 - 26 mg/dL 11/28/2019 17:12 [facility] Creatinine 0.57 0.52 - 1.04 mg/dL 11/28/2019 17:12 [facility] eGFR 121 >60 mL/min/1.7 3m2 11/28/2019 17:12 [facility] Comment:eGFR calculated gil curtis CKD-EPI equation for non- Americans. Multiply eGFR by 1.16 for patients. Total Protein 7.0 6.3 - 8.2 g/dL 11/28/2019 17:12 [facility] Albumin 3.9 3.4 - 4.9 g/dL 11/28/2019 17:12 [facility] Alkaline Phosphatase 100 38 - 126 U/L 11/28/2019 17:12 [facility] AST 17 15 - 46 U/L 11/28/2019 17:12 [facility] ALT 14 <35 U/L 11/28/2019 17:12 [facility] Bilirubin, Total <0.5 <1.4 mg/dL 11/28/19 20 17:12 [facility] Calcium 9.8 8.5 - 10.5 mg/dL 11/28/2019 17:12 [facility] Calculated Calcium 9.9 8.5 - 10.5 mg/dL 11/28/2019 17:12 [facility] Blood VENOUS BLOOD / Unknown Venipuncture / Unknown 11/28/2019 15:56 EDT 11/28/2019 15:56 EDT Tonja Alejandro PA-C CHEMISTRY & BLOOD GAS ORDERABLES [facility] [address] [place] [address] * (ABNORMAL) COMPLETE BLOOD COUNT AND DIFFERENTIAL (11/28/2019 15:56 EDT) WBC 14.38(H) 4.00 - 12.40 K/cmm 11/28/2019 17:04 [facility] RBC 4.69 3.86 - 5.04 M/cmm 11/28/2019 17:04 [facility] Hemoglobin 14.3 11.6 - 15.2 gm/dL 11/28/2019 17:04 [facility] HCT 40.8 34.9 - 44.4 % 11/28/2019 17:04 [facility] MCV 87 81 - 98 fl 11/28/2019 17:04 [facility] MCH 30.5 26.7 - 33.3 pg 11/28/2019 17:04 [facility] MCHC 35.0 32.1 - 35.9 gm/dL 11/28/2019 17:04 [facility] RDW-CV 12.0 <14.7 % 11/28/2019 17:04 [facility] RDW-SD 38.4 <50.4 fl 11/28/2019 17:04 [facility] PLT 414(H) 141 - 377 K/cmm 11/28/2019 17:04 [facility] MPV 10.1 9.5 - 12.7 fl 11/28/2019 17:04 [facility] Type of Differential: Manual 11/28/2019 17:04 [facility] Blood VENOUS BLOOD / Unknown Venipuncture / Unknown 11/28/2019 15:56 EDT 11/28/2019 15:56 EDT Tonja Alejandro PA-C PACKAGES & D NA PROBE ORDERABLES Performing Organization Address City/[facility]/ZIP Co de Phone Number [facility] [address] [place] [address] * (ABNORMAL) HEMOGLOBIN A1C (11/28/2019 15:56 EDT) Hemoglobin A1c 10.3(H) <5.7 % 11/29/2019 9:15 EDT [facility] Comment: Glycemic Status References: [...] Avg Glucose 249 mg/dL 0 9:15 EDT [facility] Comment: The eAG represents the A1c result expressed as average glucose in mg/dL. Blood VENOUS BLOOD / Unknown Venipuncture / Unknown 11/28/2019 15:56 EDT 11/28/2019 15:56 EDT Tonja Alejandro PA-C CHEMISTRY & BLOOD GAS ORDERABLES [facility] [address] [place] [address] * THYROID CASCADE (11/28/2019 15:56 EDT) TSH 0.64 0.47 - 4.68 uIU/mL 11/28/2019 17:44 EDT [facility] Blood VENOUS BLOOD / Unknown Venipuncture / Unknown 11/28/2019 15:56 EDT 11/28/2019 15:56 EDT Narrative [facility] - 11/28/2019 17:44 EDT NOTE: TSH Udall is not recommended for patients in which pituitary or hypothalamic disorders are suspected. The results of this assay can be falsely lowered due to the consumption of Biotin. Tonja Alejandro PA-C CHEMISTRY & BLOOD GAS ORDERABLES [facility] [address] [place] [address] * LIPID PROFILE (INCLUDES CHOLESTEROL, TRIGLYCERIDES, HDL, LDL) (11/28/2019 15:56 EDT) Cholesterol 179 See Note mg/dL 11/28/2019 17:12 EDT [facility] Comment: Acceptable: ?<200 mg/dL Borderline High: 200-239 mg/dL High: ?> or = 240 mg/dL HDL 38 See Note mg/dL 11/28/2019 17:12 T [facility] Comment: Low: ? <40 mg/dL Normal: ??40-60 mg/dL High: ?>60 mg/dL LDL, Calculated 61 See Note mg/dL 11/28/2019 17:12 [facility] Comment: Optimal: ? <100 mg/dL Near Optimal: ?100-129 mg/dL Borderline High: 130-159 mg/dL High: ?160-189 mg/dL Very High: ? > or = 190 mg/dL Triglyceride 398 See Note mg/dL 11/28/2019 17:12 [facility] Comment: Normal: ? <150 mg/dL Borderline High: ??150 - 199 mg/dL High: ? 200 - 499 mg/dL Very High: ?> or = 500 mg/dL Chol/HDL Ratio 4.7 See Note 11/28/2019 17:12 EDT [facility] Comment: No reference range has been established for CHOL/HDL ratio. Non HDL Cholesterol 141 See Note mg/dL 11/28/2019 17:12 EDT [facility] Comment: Desirable: ?<130 mg/dL Borderline High: ??130-159 mg/dL High: ? 160-189 mg/dL Very High: ?> or = 190 mg/dL Blood VENOUS BLOOD / Unknown Venipuncture / Unknown 11/28/2019 15:56 EDT 11/28/2019 15:56 EDT Tonja Alejandro PA-C CHEMISTRY & BLOOD GAS ORDERABLES Performing Organization Address [facility] Co de Phone Number [facility] [address] [place] [address] * (ABNORMAL) ALBUMIN, URINE (11/28/2019 15:56 EDT) Albumin, Urine 11.3 See Note mg/dL 2019 16:47 EDT [facility] Comment: NOTE: Reference range not established Creatinine, Urine 143.1 See Note mg/dL 11/28/2019 16:47 EDT [facility] Comment: NOTE: Reference range not established Lab Urine Albumin to Creatinine Ratio 79(H) <30 ug/mg Creatinine 11/28/2019 16:47 EDT [facility] Comment: Urine Albumin/Creatinine Ratio: Normal: <30 ug/mg Creatinine Moderately increased albuminuria: 30-300 ug/mg Creatinine Severley increased albuminuria: >300 ug/mg Creatinine Urine URINE SPECIMEN OBTAINED BY CLEAN CATCH PROCEDURE / Unknown Urine Collect / Unknown 11/28/2019 15:56 EDT 11/28/2019 15:56 EDT Tonja Alejandro PA-C CHEMISTRY & BLOOD GAS ORDERABLES Performing Organization Address [facility] Co de Phone Number [facility] [address] [place] [address] documented in this encounter Visit Diagnoses Diagnosis Type 2 diabetes mellitus with other specified complication, unspecified whether superintendent terminal insulin use ([facility]) Anxiety and depression Dysthymic disorder Left foot pain Pain in limb documented in this encounter
--- OUTSIDE RECORDS SUMMARY | 2024-01-02 06:19 | XMS_ITS | Encounter Summary ---
Author Organization [facility] Address [address] [place] [address] Care Team Providers Care Equipment Tech Name Role Phone Unavailable Primary Care Provider Unavailabl e Reason for Visit * Reason Comments Social Work Encounter Details Date Type Department Care Team (Late st Contact Info) Description 11/26/2019 Community Health Team [facility] Women's Services - [address] [address] Eryn Diaz Social History Tobacco Use Types [...] yo son Miky and 4 yo francois Sparkle. TPR processes are underway. Pt may foster [...] zoom meeting link as appt gets closer. [facility] Total Time: 1 hour total 45 min via zoom with pt 15 min charting Referral: n/a Follow up: Date: Thursday, December 19, 2019 Time: 11 AM With: Eryn Diaz Industrial Management Teacher Location: zoom Status: Active documented in this encounter Plan of Treatment Upcoming Encounters Date Type Department Care Team (Late st Contact Info) Description 02/21/2024 9:45 EDT Office Visit [facility] Adult Primary Care - [address] [phone] Carrington Calderon MD [address] [phone] 02/27/2024 8:30 EDT Telemedicine [facility] Sleep Program - [address] [phone] Dwight Colbert [address] [place] [address] [phone] 02/29/2024 10:30 EDT Appointment [facility] Radiology Nuclear Medicine and PET [address] [phone] 02/29/2024 14:30 EDT Appointment [facility] Radiology Nuclear Medicine and PET - [address] [id number] 03/01/2024 8:00 EDT Appointment [facility] Radiology Nuclear Medicine and PET [address] [phone] 03/01/2024 9:30 EDT Appointment [facility] Radiology Nuclear Medicine and PET [address] [phone] documented as of this encounter Visit Diagnoses Not on filedocumented in this encounter
--- OUTSIDE RECORDS SUMMARY | 2024-01-02 06:19 | XMS_ITS | Encounter Summary ---
Author Organization [facility] Address [address] [place] [address] Care Team Providers Care Leather Production Machine Operator Name Role Phone None, Provider [...] [facility] Adult Primary Care - [address] 134991 Carrington Calderon MD 1 [facility] 1 [place] [address] 02/27/2024 8:30 EDT Telemedicine [facility] Sleep Program - [address] [phone] Dwight Colbert [address] [place] [address] [phone] 02/29/2024 10:30 EDT Appointment [facility] Radiology Nuclear Medicine and PET [address] [phone] 02/29/2024 14:30 EDT Appointment [facility] Radiology Nuclear Medicine and PET [address] [phone] 03/01/2024 8:00 EDT Appointment [facility] Radiology Nuclear Medicine and PET [address] [id number] 03/01/2024 9:30 EDT Appointment [facility] Radiology Nuclear Medicine and PET [address] [phone] documented as of this encounter Visit Diagnoses Not on filedocumented in this encounter Care Teams Leather Production Machine Operator Relationship Specialty Start Date End Date None, Provider PCP - General 06/18/19 11/25/19 documented as of this encounter
--- OUTSIDE RECORDS SUMMARY | 2024-01-02 06:19 | XMS_ITS | Encounter Summary ---
Author Organization [facility] Address [address] [place] [address] Care Team Providers Care Silk Trimmer Name Role Phone Unavailable Primary Care Provider Unavailabl e Reason for Visit * Reason Onset Date Comments Ankle Pain 12/04/2019 Encounter Details Date Type Department Care Team (Late st Contact Info) Description 12/04/2019 Telephone [facility] Adult Primary Care - [address] [phone] Tonja Alejandro PA-C [employer] [facility] [address] [place] [phone] Ankle Pain Social History Tobacco Use [...] Encounter - Tonja Alejandro PA-C - 12/04/2019 [id number] EDT Spoke with patient on the phone. [...] [facility] Adult Primary Care - [address] [phone] Carrington Calderon MD 1 [facility] 1 [place] [address] 02/27/2024 8:30 EDT Telemedicine [facility] Sleep Program - [address] [place] [address] Sayra Dwight [address] [place] [address] 02/29/2024 10:30 EDT [facility] Radiology Nuclear Medicine and PET - [address] [phone] 02/29/2024 14:30 EDT [facility]ointment [facility] Radiology Nuclear Medicine and PET - [address] [id number] 03/01/2024 8:00 EDT Appointment [facility] Radiology Nuclear Medicine and PET - [address] [phone] 03/01/2024 9:30 EDT Appointment [facility] Radiology Nuclear Medicine and PET - [address] [phone] documented as of this encounter Visit Diagnoses Not on filedocumented in this encounter
--- OUTSIDE RECORDS SUMMARY | 2024-01-02 06:19 | XMS_ITS | Encounter Summary ---
Author Organization [facility] Address [address] [place] [address] Care Team Providers Care Hot Roller Name Role Phone Unavailable Primary Care Provider Unavailabl e Reason for Referral * Radiology Services (Routine) - Closed Specialty Diagnoses / Procedures Referred By Contac t Referred To Contact Radiology Diagnoses Left foot pain Sore on toe Procedures MR FOOT W WO CONTRAST LEFT Tonja Alejandro PA-C [address] [place] [phone] Referral ID Status Reason Start Date Expiration Date Visits Re quested Visits Authorized [id number] Closed 11/28/2019 1 1 Reason for Visit * Radiology Services (Routine) - Closed Specialty Diagnoses / Procedures Referred By Contac t Referred To Contact Radiology Diagnoses Left foot pain Sore on toe Procedures MR FOOT W WO CONTRAST LEFT Tonja Alejandro PA-C [address] [place] [id number] Referral ID Status Reason Start Date Expiration Date Visits Re quested Visits Authorized [id number] Closed 11/28/2019 1 1 Encounter Details Date Type Department Care Team (Latest Contact Info) Description 12/05/2019 6:33 EDT - 12/05/2019 10:29 EDT [facility] Radiology MRI - [facility] [place] [address] [place] [address] Left foot pain; Sore on toe Discharge [...] Visit [facility] Adult Primary Care - [address] [phone] Carrington Calderon MD [address] [address] 02/27/2024 8:30 EDT Telemedicine [facility] Sleep Program - [address] [address] Dwight Colbert [address] [place] [address] [phone] 02/29/2024 10:30 EDT [facility] - [address] [phone] 02/29/2024 14:30 EDT Appointment [facility] Radiology Nuclear Medicine and PET - [address] [phone] 03/01/2024 8:00 EDT Appointment [facility] Radiology Nuclear Medicine and PET - [address] [phone] 03/01/2024 9:30 EDT Appointment [facility] Radiology Nuclear Medicine and PET - [address] [phone] documented as of this encounter Procedures Procedure [...] the forefoot. Tonja Alejandro PA-C IMG MRI CLEMENTE GOLDEN documented in this encounter [...]
--- OUTSIDE RECORDS SUMMARY | 2024-01-02 06:19 | XMS_ITS | Encounter Summary ---
Author Organization [facility] Address [address] [place] [address] Care Team Providers Care Cardiovascular Tech Name Role Phone Unavailable Primary Care Provider Unavailabl e Reason for Visit * Reason Onset Date Comments Results 11/30/2019 Encounter Details Date Type Department Care Team (Late st Contact Info) Description 11/30/2019 Telephone [facility] Adult Primary Care - [address] 557341 Tonja Alejandro PA-C [address] [place] [address] [place] [phone] Results Social History Tobacco Use Types [...] [facility] Adult Primary Care - [address] 550231 Carrington Calderon MD 1 [facility] Level 1 [place] [phone] 02/27/2024 8:30 EDT Telemedicine [facility] Sleep Program - [address] [place] [address] Dwight Colbert [address] [place] [address] 02/29/2024 10:30 EDT [facility]ointment [facility] Radiology Nuclear Medicine and PET - [address] [address] 02/29/2024 14:30 EDT Appointment [facility] Radiology Nuclear Medicine and PET - [address] [phone] 03/01/2024 8:00 EDT Appointment [facility] Radiology Nuclear Medicine and PET - [address] 405641 03/01/2024 9:30 EDT Appointment [facility] Radiology Nuclear Medicine and PET - [address] 909331 documented as of this encounter Visit Diagnoses Diagnosis Leukocytosis, unspecified type- Primary documented in this encounter
--- OUTSIDE RECORDS SUMMARY | 2024-01-02 06:19 | XMS_ITS | Encounter Summary ---
Author Organization [facility] Address [address] [place] [address] Care Team Providers Care Patrol Community Service Officer Name Role Phone None, Provider Primary Care Provider Unavailabl e Reason for Visit * Reason Onset Date Comments Other 10/16/2019 Follow up. Encounter Details Date Type Department Care Team (Late st Contact Info) Description 10/16/2019 Telephone [facility] Women's Services [address] [address] Jordyn Wolfe, MARCELO Other (Follow up.) Social [...] Encounter - Jordyn Wolfe RN - 10/22/2019 4189 EDT Call to patient. This was a follow-up call after patient miscarriage. Patient did speak to social science research assistant Elo Diaz who reached out to me [...] needs to speak to nurse or social science research assistant. Patient states currently feels well supported and expressed gratitude towards our staff for supporting her also. * Telephone Encounter - Jordyn Wolfe RN - 10/16/2019 1427 EDT Call to social science research assistant Lopez Diaz.Asked best number/time to call. documented in this encounter Plan of Treatment Upcoming Encounters Date Type Department Care Team (Late st Contact Info) Description 02/21/2024 9:45 EDT Office Visit [facility] Adult Primary Care - [address] 250291 Carrington Calderon MD 1 [facility] 1 [place] [phone] 02/27/2024 8:30 EDT Telemedicine [facility] Sleep Program - [address] [phone] Dwight Colbert [address] [place] [address] 02/29/2024 10:30 EDT Appointment [facility] Radiology Nuclear Medicine and PET - [address] [address] 02/29/2024 14:30 EDT Appointment [facility] Radiology Nuclear Medicine and PET [address] [phone] 03/01/2024 8:00 EDT [facility]ment [facility] [place] Radiology Nuclear Medicine and PET [address] [phone] 03/01/2024 9:30 EDT Appointment [facility] Radiology Nuclear Medicine and PET [address] 137351 documented as of this encounter Visit Diagnoses Not on filedocumented in this encounter Care Teams Patrol Community Service Officer Relationship Specialty Start Date End Date None, Provider PCP - General 06/18/19 11/25/19 documented as of this encounter
--- OUTSIDE RECORDS SUMMARY | 2024-01-02 06:19 | XMS_ITS | Encounter Summary ---
Author Organization [facility] Address [address] [place] [address] Care Team Providers Care Boat Driver Name Role Phone None, Provider Primary Care Provider Unavailabl e Encounter Details Date Type Department Care Team (Late st Contact Info) Description 11/20/2019 Prep for Procedure [facility] [address] [place], [place] [phone] Pamela Sifuentes MD [address] [place] [phone] Social History Tobacco Use Types Packs/Day [...] Visit [facility] Adult Primary Care - [address] [address] Carrington Calderon MD [address] [phone] 02/27/2024 8:30 EDT Telemedicine [facility] Sleep Program - [address] 533591 Dwight Colbert [address] [place] [address] [phone] 02/29/2024 10:30 EDT Appointment [facility] Radiology Nuclear Medicine and PET [address] 649171 02/29/2024 14:30 EDT Appointment [facility] Radiology Nuclear Medicine and PET [address] [id number] 03/01/2024 8:00 EDT Appointment [facility] Radiology Nuclear Medicine and PET [address] 783641 03/01/2024 9:30 EDT Appointment [facility] Radiology Nuclear Medicine and PET [address] 623471 documented as of this encounter Visit Diagnoses Not on filedocumented in this encounter Care Teams Boat Driver Relationship Specialty Start Date End Date None, Provider PCP - General 06/18/19 11/25/19 documented as of this encounter
--- OUTSIDE RECORDS SUMMARY | 2024-01-02 06:19 | XMS_ITS | Encounter Summary ---
Author Organization [facility] Address [address] [place] [address] Care Team Providers Care Splicer Operator Name Role Phone Unavailable Primary Care Provider Unavailabl e Reason for Referral * Radiology Services (Routine) - Closed Specialty Diagnoses / Procedures Referred By Contac t Referred To Contact Radiology Diagnoses Left foot pain Sore on toe Procedures MR FOOT W WO CONTRAST LEFT Tonja Alejandro PA-C [address] [place] [address] Referral ID Status Reason Start Date Expiration Date Visits Re quested Visits Authorized [id number] Closed 11/28/2019 1 1 Reason for Visit * Reason Comments Foot Pain left Encounter Details Date Type Department Care Team (Late st Contact Info) Description 11/28/2019 14:30 EDT Office Visit [facility] Adult Primary Care [facility] 1 [place] [address] Tonja Alejandro PA-C [address] [place] [phone] Left foot pain (Primary Dx); Type 2 diabetes mellitus with other specified complication, unspecified whether remote computer terminal operator insulin use ([facility]); Sore on toe Social History Tobacco [...] Progress Notes * Tonja Alejandro PA-C - 11/28/2019 1430 EDT Images from the original note were not included. [facility] Primary Care Acute Visit Service Date: [...] she did go to urgent care at [facility] and had x-rays done and was [...] mellitus with other specified complication, unspecified whether retirement insulin use ([facility]) Sore on toe/left foot pain This is [...] [facility] Adult Primary Care - [address] [phone] Carrington Calderon MD 1 [facility] 1 [place] [phone] 02/27/2024 8:30 EDT Telemedicine [facility] Sleep Program - [address] 610151 Dwight Colbert [address] [place] [address] 02/29/2024 10:30 EDT Appointment [facility] Radiology Nuclear Medicine and PET [address] [address] 02/29/2024 14:30 EDT Appointment [facility] Radiology Nuclear Medicine and PET [address] 475201 03/01/2024 8:00 EDT Appointment [facility] Radiology Nuclear Medicine and PET [address] [phone] 03/01/2024 9:30 EDT Appointment [facility] Radiology Nuclear Medicine and PET [address] [address] documented as of this encounter Results * [...] mellitus with other specified complication, unspecified whether retirement insulin use ([facility]) Sore on toe Left foot pain Pain in limb Sore on toe documented in this encounter
--- OUTSIDE RECORDS SUMMARY | 2024-01-02 06:19 | XMS_ITS | Encounter Summary ---
Author Organization [facility] Address [address] [place] [address] Care Team Providers Care Duct Layer Helper Name Role Phone Unavailable Primary Care Provider Unavailabl e Encounter Details Date Type Department Care Team (Latest Contact Info) Description 01/01/2020 8:37 EDT - 01/01/2020 23:59 EDT Hospital Encounter [facility] [address] [place], [place] [phone] Discharge Disposition: Home or Self Care Social [...] Office Visit [facility] Adult Primary Care [address] [address] Carrington Calderon MD [address] [place] [address] 1 [place] [address] 02/27/2024 8:30 EDT Telemedicine [facility] Sleep Program - [address] [address] Dwight Colbert [address] [place] [address] [phone] 02/29/2024 10:30 ED[facility] [address] 779671 02/29/2024 14:30 EDT Appointment [facility] Radiology Nuclear Medicine and PET [address] [phone] 03/01/2024 8:00 EDT Appointment [facility] Radiology Nuclear Medicine and PET [address] 014011 03/01/2024 9:30 EDT Appointment [facility] Radiology Nuclear Medicine and PET [address] [phone] documented as of this encounter Procedures Procedure Name Priority Date/Time Associated Diagnosis Comments XR FOOT LEFT 3 OR MORE VIEWS Routine 01/01/2020 8:52 EDT Ulcerated, foot, left, with fat layer exposed ([facility]) Type 2 diabetes mellitus with diabetic polyneuropathy, with long-term current use of insulin ([facility]) documented in this encounter Results * [...]
--- OUTSIDE RECORDS SUMMARY | 2024-01-02 06:19 | XMS_ITS | Encounter Summary ---
Author Organization [facility] Address [address] [place] [address] Care Team Providers Care Art Teacher Name Role Phone None, Provider Primary [...] Description 02/21/2024 9:45 EDT Office Visit [facility] Adult Primary Care - [address] 028261 Carrington Calderon MD 1 [facility] 1 [place] [address] 02/27/2024 8:30 EDT Telemedicine [facility] Sleep Program - [address] [phone] Dwight Colbert [address] [place] [address] [phone] 02/29/2024 10:30 EDT Appointment [facility] Radiology Nuclear Medicine and PET - [address] 324881 02/29/2024 14:30 EDT Appointment [facility] Radiology Nuclear Medicine and PET - [address] [id number] 03/01/2024 8:00 EDT Appointment [facility] Radiology Nuclear Medicine and PET [address] [phone] 03/01/2024 9:30 EDT Appointment [facility] Radiology Nuclear Medicine and PET [address] [phone] documented as of this encounter Visit Diagnoses Not on filedocumented in this encounter Care Teams Art Teacher Relationship Specialty Start Date End Date None, Provider PCP - General 06/18/19 11/25/19 documented as of this encounter
--- OUTSIDE RECORDS SUMMARY | 2024-01-02 06:19 | XMS_ITS | Encounter Summary ---
Author Organization [facility] Address [address] [place] [address] Care Team Providers Care Crankshaft Balancer Name Role Phone Unavailable Primary Care Provider Unavailabl e Encounter Details Date Type Department Care Team (Latest Contact Info) Description 12/05/2019 10:30 EDT - 12/05/2019 23:59 EDT Hospital Encounter [facility] Pre-Surgical Testing [address] [place], [place] 094471 Discharge Disposition: Home or Self Care Social [...] instruct them to call us back at [phone] to report symptoms (If patient is in [...] - Visitors must have mask for pickup. MEDICAL HOUSEKEEPER will provide parts picker instructions when Pt is ready for DC. [...] - [facility] [place] Adult Primary Care - [address] 986221 Carrington Calderon MD [address] [place] [phone] 02/27/2024 8:30 EDT Telemedicine [facility] Sleep Program - [address] [phone] Dwight Colbert [address] [place], [place] 563531 02/29/2024 10:30 EDT [facility]ointment [facility] Radiology Nuclear Medicine and PET - [address] [address] 02/29/2024 14:30 EDT Appointment [facility] Radiology Nuclear Medicine and PET [address] [address] 03/01/2024 8:00 EDT Appointment [facility] Radiology Nuclear Medicine and PET [address] [address] 03/01/2024 9:30 EDT Appointment [facility] Radiology Nuclear Medicine and PET [address] [address] documented as of this encounter Visit Diagnoses Not on filedocumented in this encounter Discontinued Medications Medication Sig Discontinue Reason Start Date End Da te folic acid (FOLVITE) 1 mg tablet Take 4 Tabs by mouth daily. Therapy completed 10/01/2019 12/05/2019 documented as of this encounter
--- OUTSIDE RECORDS SUMMARY | 2024-01-02 06:20 | XMS_ITS | Encounter Summary ---
Author Organization [facility] Address [address] [place] [address] Care Team Providers Care Chicken Dresser Name Role Phone None, Provider Primary Care Provider Unavailabl e Reason for Visit * Reason Comments Initial Visit Encounter Details Date Type Department Care Team (Late st Contact Info) Description 10/01/2019 15:00 EDT Telemedicine [facility] Obstetrics & Midwifery - [address] [phone] Deepali Le MD [address] [place] [address], Level [address] [place] [address] with type 2 diabetes mellitus [...] Mayra Lund MD - 10/01/2019 1500 EDT [facility] Maternal Medicine History & Physical Cristy Luo [...] has ranged from 8.8-11.2. Hasn't seen an air value tester in about a year due to some [...] 10/2018 10w4d ECTOPIC Comments: interstitial diagnosed at [facility]; given MTX 10/26/18 6 SAB 01/2018 6w0d SAB Comments: D&C at [facility] after nonviable on US; had to have repeat D&Bhavna November for retained POCs 5 06/2017 6w0d SAB Comments: D&C at [facility]; nonviable seen on US; fourth with current 4 SAB 02/2017 6w0d SAB Comments: D&C at [facility]; third with current 3 SAB 08/2015 10w0d SAB Comments: D&C at [facility]; 2nd with current 2 SAB 01/2015 9w0d SAB Comments: D&C at [facility]; first current 1 SAB 2005 6w0d SAB Comments: first ; ex ; twin confirmed by US at [facility]; no medical or surgical tx Past gynecological history: Regular monthly periods. Last Pap in January 2019 reports normal, never had abnormal Pap. No STIs. Past medical history: Cristy has a past medical history of Depression, Diabetes mellitus ([facility]), Migraine, unspecified, without mention of intractable migraine [...] the family. FOB great uncles all had [place] under age 35. FOB twin brother at [...] miscarriage. High-risk in first trimester - Reviewed [facility] group practice and clinic flow. - labs [...] Lund MD PhD MFM Fellow, PGY5 Pager #[phone] Today's visit was provided through telemedicine audio-visual [...] application used to conduct the visit was Scaffold. I spent a total of 15 minutes [...] in first trimester (Resolved 11/02/2019) - Reviewed [facility] group practice and clinic flow. - labs [...] Visit [facility] Adult Primary Care - [address] [phone] Carrington Calderon MD [address] [phone] 02/27/2024 8:30 EDT Telemedicine [facility] Sleep Program - [address] 870831 Dwight Colbert [address] [place] [phone] 02/29/2024 10:30 EDT Appointment [facility] Radiology Nuclear Medicine and PET - [address] 836871 02/29/2024 14:30 EDT Appointment [facility] Radiology Nuclear Medicine and PET - [address] [phone] 03/01/2024 8:00 EDT Appointment [facility] Radiology Nuclear Medicine and PET - [address] [address] 03/01/2024 9:30 EDT Appointment [facility] Radiology Nuclear Medicine and PET - [address] [address] documented as of this encounter Visit Diagnoses [...] documented as of this encounter Care Teams Chicken Dresser Relationship Specialty Start Date End Date None, Provider PCP - General 06/18/19 11/25/19 documented as of this encounter
--- OUTSIDE RECORDS SUMMARY | 2024-01-02 06:20 | XMS_ITS | Encounter Summary ---
Author Organization [facility] Address [address] [place] [address] Care Team Providers Care Vmware Administrator Name Role Phone None, Provider Primary Care Provider Unavailabl e Reason for Visit * REAL ESTATE DEVELOPMENT MANAGER (Routine) - Order Cancelled Specialty Diagnoses / Procedures Referred By Contac t Referred To Contact Diagnoses Less than 8 weeks gestation of Procedures US OB FIRST TRIMESTER (LESS THAN 14 WEEKS) TRANSVAGINAL Jonas Ojeda MD [address] [place] [address] [address] Referral ID Status Reason Start Date Expiration Date V isits Requested Visits Authorized [id number] Order Cancelled 09/05/2019 1 1 Encounter Details Date Type Department Care Team (Latest Contact Info) Description 09/17/2019 9:09 EDT - 09/18/2019 23:59 EDT Hospital Encounter [facility] Women's Services - [address] [phone] Less than 8 weeks gestation of Discharge [...] 02/21/2024 9:45 EDT Office Visit [facility] Adult Primary Care - [address] 156741 Carrington Calderon MD [address] [phone] 02/27/2024 8:30 EDT Telemedicine [facility] Sleep Program - [address] [phone] Sayra Dwight [address] [place] [address] [phone] 02/29/2024 10:30 EDT Appointment [facility] Radiology Nuclear Medicine and PET [address] [phone] 02/29/2024 14:30 EDT Appointment [facility] Radiology Nuclear Medicine and PET [address] [phone] 03/01/2024 8:00 EDT Appointment [facility] Radiology Nuclear Medicine and PET [address] [phone] 03/01/2024 9:30 EDT Appointment [facility] Radiology Nuclear Medicine and PET [address] 329101 documented as of this encounter Procedures Procedure [...] corpus luteum: ??collapsed Impression OB Transvaginal - 30772 [place] viable intrauterine with dating to be [...] corpus luteum: ??collapsed Impression OB Transvaginal - 87720 [place] viable intrauterine with dating to be [...] corpus luteum: collapsed Impression OB Transvaginal - 53662 [place] viable intrauterine with dating to be based onultrasound, as above for dating. Follow-up Establish OB care. Comment ========= Results discussed with patient. DATE OF SERVICE: 09/17/2019 Jonas Ojeda MD [facility] OB ORDERABLES documented in this encounter Visit Diagnoses Diagnosis Less than 8 weeks gestation of state, incidental documented in this encounter Care Teams Vmware Administrator Relationship Specialty Start Date End Date None, Provider PCP - General 06/18/19 11/25/19 documented as of this encounter
--- OUTSIDE RECORDS SUMMARY | 2024-01-02 06:20 | XMS_ITS | Encounter Summary ---
Author Organization [facility] Address [address] [place] [address] Care Team Providers Care Fixture Designer Name Role Phone None, Provider Primary Care Provider Unavailabl e Reason for Visit * Reason Comments Social Work Encounter Details Date Type Department Care Team (Late st Contact Info) Description 10/12/2019 Community Health Team [facility] Women's Services - [address] [address] Eryn Diaz Social History Tobacco Use Types [...] step francois, and 3 foster children in [place]. Pt grateful Fermin took the children to [...] the following re care coordination: - Disc [facility] therapeutic group practice in [place] that specializes in working with women who have exp losses - Disc psychiatric and add'l loss support that can be provided via [facility] Denita Brantley or Dr. 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 Fermin is a mechanic/welder ($15/hour) and still working. SW disc it's [...] copy Jordyn and David as a fyi. [facility] Total Time: 55 min total 20 min via ph with pt 20 min care coord 15 min charting Referral: n/a Follow up: Date: Wednesday, October 16, 2019 Time: 11:30 AM With: Eryn Diaz Manager Of Software Location: ph Status: Active documented in this encounter Plan of Treatment Upcoming Encounters Date Type Department Care Team (Late st Contact Info) Description 02/21/2024 9:45 EDT Office Visit [facility] Adult Primary Care - [address] 273191 Carrington Calderon MD [address] [phone] 02/27/2024 8:30 EDT Telemedicine [facility] Sleep Program - [address] [phone] Dwight Colbert [address] [place] [place] [address] [phone] 02/29/2024 10:30 EDT Appointment [facility] Radiology Nuclear Medicine and PET [address] [phone] 02/29/2024 14:30 EDT Appointment [facility] Radiology Nuclear Medicine and PET - [address] [phone] 03/01/2024 8:00 EDT Appointment [facility] Radiology Nuclear Medicine and PET [address] [phone] 03/01/2024 9:30 EDT Appointment [facility] Radiology Nuclear Medicine and PET [address] [phone] documented as of this encounter Visit Diagnoses Not on filedocumented in this encounter Care Teams Fixture Designer Relationship Specialty Start Date End Date None, Provider PCP - General 06/18/19 11/25/19 documented as of this encounter
--- OUTSIDE RECORDS SUMMARY | 2024-01-02 06:20 | XMS_ITS | Encounter Summary ---
Author Organization [facility] Address [address] [place] [address] Care Team Providers Care Class A Regional Drivers Name Role Phone None, Provider Primary Care Provider Unavailabl e Reason for Referral * Consult (3 - 10 Business Days) - Closed Specialty Diagnoses / Procedures Referred By Contac t Referred To Contact Diagnoses in first trimester Andrés Mcfarlane MD 111 [facility], Level 1 [place] [address] [facility] Ep4 Ob/Mfm [address] [place] [address] Referral ID Status Reason Start Date Expiration Date V isits Requested Visits Authorized [id number] Closed Specialty Services Required 10/11/2019 1 1 Question Answer Reason for Request: Failed Reason for Visit * Reason Comments Vaginal Bleeding see tcall. Ambulator y into triage, 9.5wks , last night started with bright red bleeding I've changed the panty liner a few times since last night. Followed by [facility] process specialist highrisk. Intermittent cramping. Hx 6 miscarriages. Encounter Details Date Type Department Care Team (Late st Contact Info) Description 10/11/2019 20:54 EDT - 10/12/2019 0:13 EDT Emergency [facility] Emergency Department - [address] [address] Kylah Whitaker PA-C 111 [facility], [facility] 1 [place] [address] Alessandro Delgadillo MD 111 [facility], [facility] 1 [place] [address] in first trimester (Primary Dx) [...] you for coming to the ED at [facility] for your medical care. Whenever we see [...] a failed . 2) Please follow-up with HALL COORDINATOR. They should call you within 48 hours [...] Code Departure Means Destination Home or Self Prison documented in this encounter Consult Notes * Elise Larson MD - 10/11/2019 1099 EDT Department of Gynecology History & Physical [...] while on meds);no current mood issues. 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 PMedHx: Past Medical History: [...] file Gets together: Not on file Attends baptism service: Not on file Active member of [...] Last menstrual period: Per discussion with the learning and development associate, patient is unsure. Per the most recent [...] for nonviable early in the first trimester. [place] Journal of Medicine 369.15 (2013): 4185-2275. ?? Assessment: Pt is a 34 y.o. [...] [facility] We discussed that if she wants a D&C in the main OR, she will have to be conscious of her NPO status tomorrow for an add on procedure. Alternatively, we can schedule her procedure for Tue. She confirms understanding. Will plan to let PARLIAMENTARY ARCHIVIST team and clinic staff know about our [...] with Dr. Lund. Elise Larson MD PGY-3, HALL COORDINATOR Pager [phone] 10/12/2019 1:22 Associated attestation - Mayra Lund MD - 10/12/2019 2627 EDT Attestation: I saw and examined the [...] Lund MD PhD MFM Fellow, PGY5 Pager #[phone] Mayra Lund MD 10/12/2019 7:55 documented in [...] exam for emergent medical conditions at the [facility] on 10/11/2019. This note was created [...] or abdominal pain. Patient called the on-call HALL COORDINATOR and they instructed her to come here [...] to visualize the itself. Plan to follow HALL COORDINATOR recommendations with CBC, type and screen, beta quant, transvaginalultrasound. Will consult HALL COORDINATOR with the results and asked further direction. An EKG was obtained and independenly interpreted: NA Laboratory results independently reviewed, significant for: Quant beta 2954, leukocytosis of 17.66, antibody screen positive Imaging obtained was reviewed and independently interpreted: Transvaginal ultrasound demonstrated a failed intrauterine HALL COORDINATOR was consulted when I was informed of [...] female a failed based on ultrasound, history. HALL COORDINATOR was consulted who thought that she could be discharged home for definitive management in the clinic or ORtomorrow with D&C or medical expulsion therapy. Patient is very comfortable with this plan, herlabs are reassuring. She was discharged in stable condition with close OB follow-up; the RhoGam is l ikely still active from her last one as antibodies are noted ED Course: (7474) I evaluated the patient. Oyster Unloader was at bedside discussing the results of [...] Visit [facility] Adult Primary Care [address] [address] Carrington Calderon MD [address] [phone] 02/27/2024 8:30 EDT Telemedicine [facility] Sleep Program - [address] [address] Dwight Colbert [address] [place] [address] [phone] 02/29/2024 10:30 [facility] [address] [id number] 02/29/2024 14:[address] [facility] Radiology Nuclear Medicine and PET [address] [id number] 03/01/2024 8:[address] [facility] Radiology Nuclear Medicine and PET [address] [id number] 03/01/2024 9:[address] [facility] Radiology Nuclear Medicine and PET [address] [phone] Pending Results Name Type Priority Associated Diagnoses [...] for nonviable early in the first trimester. [place] Journal of Medicine 369.15 (2013): 6267-7750. I have personally reviewed the images and [...] Last menstrual period: Per discussion with the learning and development associate, patient is unsure. Per the most recent [...] Last menstrual period: Per discussion with the learning and development associate, patient isunsure. Per the most recent OB examination, last menstrual period isreported as 07/20/2019, gestational age is therefore 12 weeks zero days byLMP. Prior ultrasound dating: Gestational age today is [...] for nonviablepregnancy early in the first trimester. [place] Journal of Jkljyhpe797.15 (2013): 0855-9065. I have personally reviewed the images and the above interpretation andagree with the findings. Andrés Mcfarlane MD IMG US OB ORDERAB LES * ANTIBODY IDENTIFICATION (10/11/2019 21:09 EDT) Antibody Identification Anti-D; patient recd RhIg 10/11/2019 23:41 EDT [facility] Blood VENOUS BLOOD / Unknown Venipuncture / Unknown 10/11/2019 21:09 EDT 10/11/2019 21:16 EDT Elise Charles MD BLOOD BANK TESTS Performing Organization Address City/[facility]/ZIP Co de Phone Number [facility]OD [facility] [address] [place] [address] * HN LAB DIFF PATH REVIEW - HEME (10/11/2019 21:09 EDT) Pathologist Review Comment 10/12/19 13:41 ?? Elise Hightower MD 10/12/2019 13:41 EDT [facility] Blood VENOUS BLOOD / Unknown Venipuncture / Unknown 10/11/2019 21:09 EDT 10/11/2019 21:13 EDT Andrés Mcfarlane MD HEMATOLOGY & PF4 ORDERABLES Performing Organization Address City/[facility]/ZIP Co de Phone Number [facility] [address] [place] [address] * TYPE AND SCREEN (10/11/2019 21:09 EDT) ABO B 10/11/2019 22:43 EDT [facility] Rh Factor Negative 10/11/2019 22:43 EDT [facility] Antibody Screen Positive 10/11/2019 22:43 EDT [facility] Specimen Expires: 10/14/2019 @ 23:59 10/11/2019 22:43 EDT [facility] Blood VENOUS BLOOD / Unknown Venipuncture / Unknown 10/11/2019 21:09 EDT 10/11/2019 21:16 EDT Elise Charles MD BLOOD BANK TESTS [facility] [address] [facility] [place] [address] * (ABNORMAL) DIFFERENTIAL, AUTOMATED MANUAL (10/11/2019 21:09 EDT) % Neutrophils 52.6 % 10/11/2019 23:25 [facility] % Lymphocytes 25.0 % 10/11/2019 23:25 [facility] % Atypical Lymphocytes 6.9 % 10/11/2019 23:25 [facility] % Monocytes 8.6 % 10/11/2019 23:25 [facility] % Eosinophils 5.2 % 10/11/2019 23:25 [facility] % Basophils 1.7 % 10/11/2019 23:25 [facility] Absolute Neutrophils 9.29(H) 2.20 - 8.85 K/cmm 10/11/2019 23:25 [facility] Absolute Lymphocytes 4.42(H) 1.09 - 3.30 K/cmm 10/11/2019 23:25 [facility] Absolute Atypical Lymphocytes 1.22 K/cmm 10/11/2019 23:25 [facility] Absolute Monocytes 1.52(H) 0.10 - 0.80 K/cmm 10/11/2019 23:25 [facility] Absolute Eosinophils 0.92(H) 0.03 - 0.61 K/cmm 10/11/2019 23:25 [facility] ABS Basophils 0.30(H) 0.01 - 0.11 K/cmm 10/11/2019 23:25 [facility] Blood VENOUS BLOOD / Unknown Venipuncture / Unknown 10/11/2019 21:09 EDT 10/11/2019 21:13 EDT Andrés Mcfarlane MD HEMATOLOGY & PF4 ORDERABLES Performing Organization Address [facility] de Phone Number [facility] [address] [place] [address] * (ABNORMAL) QUANT BETA HCG, (10/11/2019 21:09 EDT) Pathologist [facility] Beta HCG Quant, 2,954(H) <5 mIU/ml 10/11/2019 22:54 EDT [facility] Comment: NOTE: : [...] ORDERABLES Performing Organization Address [facility] de Phone Number [facility] [address] [place] [address] * (ABNORMAL) COMPLETE BLOOD COUNT AND DIFFERENTIAL (10/11/2019 21:09 EDT) Pathologist [facility] WBC 17.66(H) 4.00 - 12.40 K/cmm 10/11/2019 22:16 [facility] RBC 4.70 3.86 - 5.04 M/cmm 10/11/2019 22:16 [facility] Hemoglobin 14.4 11.6 - 15.2 gm/dL 10/11/2019 22:16 [facility] HCT 41.9 34.9 - 44.4 % 10/11/2019 22:16 [facility] MCV 89 81 - 98 fl 10/11/2019 22:16 [facility] MCH 30.6 26.7 - 33.3 pg 10/11/2019 22:16 [facility] MCHC 34.4 32.1 - 35.9 gm/dL 10/11/2019 22:16 [facility] RDW-CV 12.1 <14.7 % 10/11/2019 22:16 EDT [facility] RDW-SD 39.5 <50.4 fl 10/11/2019 22:16 EDT [facility] PLT 443(H) 141 - 377 K/cmm 10/11/2019 22:16 EDT [facility] MPV 9.5 9.5 - 12.7 fl 10/11/2019 22:16 EDT [facility] Type of Differential: Manual 10/11/2019 22:16 EDT [facility] Blood VENOUS BLOOD / Unknown Venipuncture / Unknown 10/11/2019 21:09 EDT 10/11/2019 21:13 EDT Andrés Mcfarlane MD PACKAGES & DNA NC OBE ORDERABLES Performing Organization Address City/[facility]/ZIP Co de Phone Number [facility] [address] [place] [address] * BLOOD BANK HOLD (10/11/2019 21:09 EDT) Hold BB Spec will exp at 23:59, 3 days from collect date 10/11/2019 21:31 EDT [facility] Blood VENOUS BLOOD / Unknown Venipuncture / Unknown 10/11/2019 21:09 EDT 10/11/2019 21:16 EDT Elise Charles MD BLOOD BANK TESTS Performing Organization Address City/[facility]/ZIP Co de Phone Number [facility] [address] [place] [id number] * HOLD SST (10/11/2019 21:09 EDT) Hold Hold 10/11/2019 22:16 EDT [facility] Blood VENOUS BLOOD / Unknown Venipuncture / Unknown 10/11/2019 21:09 EDT 10/11/2019 21:13 EDT Elise Charles MD LAB INFO SERVICE A ND SUPPORT & PHONE RESULT [facility] [address] [place] [address] * HOLD LAVENDER TOP (10/11/2019 21:09 EDT) Hold Hold 10/11/2019 22:16 EDT [facility] Blood VENOUS BLOOD / Unknown Venipuncture / Unknown 10/11/2019 21:09 EDT 10/11/2019 21:13 EDT Elise Charles MD LAB INFO SERVICE A ND SUPPORT & PHONE RESULT [facility] [address] [place] [address] * HOLD GREEN TOP (10/11/2019 21:09 EDT) Hold Hold 10/11/2019 22:16 EDT [facility] Blood VENOUS BLOOD / Unknown Venipuncture / Unknown 10/11/2019 21:09 EDT 10/11/2019 21:13 EDT Elise Charles MD LAB INFO SERVICE A ND SUPPORT & PHONE RESULT [facility] [address] [place] [address] * HOLD BLUE TOP (10/11/2019 21:09 EDT) Hold Hold 10/11/2019 22:16 EDT [facility] Blood VENOUS BLOOD / Unknown Venipuncture / Unknown 10/11/2019 21:09 EDT 10/11/2019 21:13 EDT Elise Charles MD LAB INFO SERVICE A ND SUPPORT & PHONE RESULT [facility] [address] [place] [address] documented in this encounter Visit Diagnoses Diagnosis [...] RN) documented in this encounter Care Teams Class A Regional Drivers Relationship Specialty Start Date End Date None, Provider PCP - General 06/18/19 11/25/19 documented as of this encounter
--- OUTSIDE RECORDS SUMMARY | 2024-01-02 06:20 | XMS_ITS | Encounter Summary ---
Author Organization [facility] Address [address] [place] [address] Care Team Providers Care Escalator Mechanic Name Role Phone None, Provider Primary Care Provider Unavailabl e Encounter Details Date Type Department Care Team (Late st Contact Info) Description 09/02/2019 9:45 EDT Phlebotomy Only [facility] ED Center 2 Phlebotomy [address] [place] [address] Cloth Dye Range Operator, Acc Phlebotomy affected by previous ectopic (Primary [...] - [facility] Adult Primary Care - [address] [phone] Carrington Calderon MD [address] [address] 02/27/2024 8:30 EDT Telemedicine [facility] Sleep Program - [address] 158051 Dwight Colbert [address] [place] [address] 02/29/2024 10:30 EDT Appointment [facility] Radiology Nuclear Medicine and PET [address] [phone] 02/29/2024 14:30 EDT Appointment [facility] Radiology Nuclear Medicine and PET [address] [id number] 03/01/2024 8:00 EDT Appointment [facility] Radiology Nuclear Medicine and PET [address] [phone] 03/01/2024 9:30 EDT Appointment [facility] Radiology Nuclear Medicine and PET [address] [phone] documented as of this encounter Procedures Procedure Name Priority Date/Time Associated Diagnosis Comments QUANT BETA HCG, Routine 09/02/2019 9:42 EDT affected by previous ectopic documented in this encounter Results * (ABNORMAL) QUANT BETA HCG, (09/02/2019 9:42 EDT) Beta HCG Quant, 707(H) <5 mIU/ml 09/02/2019 10:30 EDT [facility] Comment: NOTE: : Negative: [...] MD CHEMISTRY & BLOO D GAS ORDERABLES [facility] [address] [place] [address] documented in this encounter Visit Diagnoses Diagnosis affected by previous ectopic - Primary documented in this encounter Care Teams Escalator Mechanic Relationship Specialty Start Date End Date None, Provider PCP - General 06/18/19 11/25/19 documented as of this encounter
--- OUTSIDE RECORDS SUMMARY | 2024-01-02 06:20 | XMS_ITS | Encounter Summary ---
Author Organization [facility] Address [address] [place] [address] Care Team Providers Care Eyeglass Cutter Name Role Phone None, Provider Primary Care Provider Unavailabl e Reason for Visit * Reason Onset Date Comments 08/30/2019 Encounter Details Date Type Department Care Team (Late st Contact Info) Description 08/30/2019 Telephone [facility] Obstetrics & Midwifery - [facility] [address] [place] [address] Kylah Jimenes RN Social History Tobacco Use [...] Kylah Jimenes RN - 08/30/2019 1551 EDT [facility] Initial Appt Screening Form Best Contact Number: [phone] [facility] Provider: HUGO Previous [facility] Patient: YES: No Referred by: self High [...] is agreeable to this. Message routed to QUALITY HEAD team to get into Beta Book. documented in this encounter Plan of Treatment Upcoming Encounters Date Type Department Care Team (Late st Contact Info) Description 02/21/2024 9:45 EDT Office Visit [facility] Adult Primary Care - [address] [address] Carrington Calderon MD 1 [facility] Level 1 [place] [address] 02/27/2024 8:30 EDT Telemedicine [facility] Sleep Program - [address] [place] [address] Dwight Colbert [address] [place] [address] [phone] 02/29/2024 10:30 EDT Appointment [facility] Radiology Nuclear Medicine and PET - [address] [phone] 02/29/2024 14:30 EDT Appointment [facility] Radiology Nuclear Medicine and PET [address] [id number] 03/01/2024 8:00 EDT Appointment [facility] Radiology Nuclear Medicine and PET [address] [id number] 03/01/2024 9:30 EDT Appointment [facility] Radiology Nuclear Medicine and PET [address] [phone] documented as of this encounter Results * (ABNORMAL) QUANT BETA HCG, (09/02/2019 9:42 EDT) [facility] Beta HCG Quant, 707(H) <5 mIU/ml 09/02/2019 10:30 EDT [facility] Comment: NOTE: : Negative: [...] MD CHEMISTRY & BLOO D GAS ORDERABLES [facility] [address] [place] [address] documented in this encounter Visit Diagnoses Diagnosis affected by previous ectopic - Primary documented in this encounter Care Teams Eyeglass Cutter Relationship Specialty Start Date End Date None, Provider PCP - General 06/18/19 11/25/19 documented as of this encounter
--- OUTSIDE RECORDS SUMMARY | 2024-01-02 06:20 | XMS_ITS | Encounter Summary ---
Author Organization [facility] Address [address] [place] [address] Care Team Providers Care Health Physicist Name Role Phone None, Provider Primary Care [...] Info) Description 02/21/2024 9:45 EDT Office Visit [facility] Adult Primary Care - [address] [phone] Carrington Calderon MD [address] [address] 02/27/2024 8:30 EDT Telemedicine [facility] Sleep Program - [address] [address] Dwight Colbert [address] [place] [address] [phone] 02/29/2024 10:30 EDT Appointment [facility] Radiology Nuclear Medicine and PET [address] [id number] 02/29/2024 14:30 EDT Appointment [facility] Radiology Nuclear Medicine and PET [address] [id number] 03/01/2024 8:00 EDT Appointment [facility] Radiology Nuclear Medicine and PET [address] [id number] 03/01/2024 9:30 EDT Appointment [facility] Radiology Nuclear Medicine and PET [address] [phone] documented as of this encounter Visit Diagnoses Not on filedocumented in this encounter Care Teams Health Physicist Relationship Specialty Start Date End Date None, Provider PCP - General 06/18/19 11/25/19 documented as of this encounter
--- OUTSIDE RECORDS SUMMARY | 2024-01-02 06:20 | XMS_ITS | Encounter Summary ---
Author Organization [facility] Address [address] [place] [address] Care Team Providers Care Piano Assembler Name Role Phone None, Provider Primary [...] Visit [facility] Adult Primary Care - [address] 363161 Carrington Calderon MD 1 [facility] 1 [place] [address] 02/27/2024 8:30 EDT Telemedicine [facility] Sleep Program - [address] [phone] Dwight Colbert [address] [place] [address] [phone] 02/29/2024 10:30 EDT Appointment [facility] Radiology Nuclear Medicine and PET - [address] [id number] 02/29/2024 14:30 EDT Appointment [facility] Emergency Department Radiology Nuclear Medicine and PET [address] [id number] 03/01/2024 8:00 EDT Appointment [facility] Emergency Department Radiology Nuclear Medicine and PET [address] [phone] 03/01/2024 9:30 EDT Appointment [facility] Emergency Department Radiology Nuclear Medicine and PET [address] [phone] documented as of this encounter Visit Diagnoses Not on filedocumented in this encounter Care Teams Piano Assembler Relationship Specialty Start Date End Date None, Provider PCP - General 06/18/19 11/25/19 documented as of this encounter
--- OUTSIDE RECORDS SUMMARY | 2024-01-02 06:20 | XMS_ITS | Encounter Summary ---
Author Organization [facility] Address [address] [place] [address] Care Team Providers Care Stone And Plate Preparer Apprentice Name Role Phone Benita Shafer MAT MAKING MACHINE TENDER Primary Care Provider [phone] Encounter Details Date Type Department Care Team (Late st Contact Info) Description 12/25/2018 Orders Only [facility] Women's Services - [address] 235791 Charu Flynn MD 111 [facility], Level [address] [place] [address] Social History Tobacco Use Types [...] [facility] Adult Primary Care - [address] 512341 Carrington Calderon MD [address] [phone] 02/27/2024 8:30 EDT Telemedicine [facility] Sleep Program - [address] [phone] Dwight Colbert [address] [place] [phone] 02/29/2024 10:30 EDT Appointment [facility] Radiology Nuclear Medicine and PET [address] [phone] 02/29/2024 14:30 EDT Appointment [facility] Radiology Nuclear Medicine and PET [address] [id number] 03/01/2024 8:00 EDT Appointment [facility] Radiology Nuclear Medicine and PET [address] [phone] 03/01/2024 9:30 EDT Appointment [facility] Radiology Nuclear Medicine and PET [address] [phone] documented as of this encounter Procedures Procedure [...] on filedocumented in this encounter Care Teams Stone And Plate Preparer Apprentice Relationship Specialty Start Date End Date Benita Shafer NP PCP - General 08/22/18 06/17/19 documented as of this encounter
--- OUTSIDE RECORDS SUMMARY | 2024-01-02 06:20 | XMS_ITS | Encounter Summary ---
Author Organization [facility] Address [address] [place] [address] Care Team Providers Care Railroad Car Inspector Name Role Phone None, Provider Primary Care Provider Unavailabl e Encounter Details Date Type Department Care Team (Late st Contact Info) Description 08/31/2019 8:45 EDT Phlebotomy Only [facility] ED Center 2 Phlebotomy [address] [place] [address] Head Animal Trainer, Acc Phlebotomy Ectopic , unspecified location, unspecified [...] [facility] - [address] [phone] Carrington Calderon MD [address] [address] 02/27/2024 8:30 EDT Telemedicine [facility] Sleep Program - [address] 653031 Dwight Colbert [address] [place] [address] [phone] 02/29/2024 10:30 EDT Appointment [facility] Radiology Nuclear Medicine and PET [address] [id number] 02/29/2024 14:30 EDT Appointment [facility] Radiology Nuclear Medicine and PET [address] [id number] 03/01/2024 8:00 EDT Appointment [facility] Radiology Nuclear Medicine and PET [address] [id number] 03/01/2024 9:30 EDT Appointment [facility] Radiology Nuclear Medicine and PET [address] [id number] documented as of this encounter Procedures Procedure Name Priority Date/Time Associated Diagnosis Comments QUANT BETA HCG, Routine 08/31/2019 8:45 EDT Ectopic , unspecified location, unspecified whether intrauterine present documented in this encounter Results * (ABNORMAL) QUANT BETA HCG, (08/31/2019 8:45 EDT) Beta HCG Quant, 316(H) <5 mIU/ml 08/31/2019 11:17 EDT [facility] Comment: NOTE: : Negative: Less than 5mIU/mL Indeterminant: Between 5 and 25 mIU/mL, recommend repeat testing in 48 hours Positive: Greater than 25 mIU/mL The results of this assay can be falsely lowered due to the consumption of Biotin. Blood 08/31/2019 8:45 EDT 08/31/2019 10:29 EDT Charu Flynn MD CHEMISTRY & BLOO D GAS ORDERABLES [facility] [address] [place] [address] documented in this encounter Visit Diagnoses Diagnosis Ectopic , unspecified location, unspecified whether intrauterine present affected by previous ectopic documented in this encounter Care Teams Railroad Car Inspector Relationship Specialty Start Date End Date None, Provider PCP - General 06/18/19 11/25/19 documented as of this encounter
--- OUTSIDE RECORDS SUMMARY | 2024-01-02 06:20 | XMS_ITS | Encounter Summary ---
Author Organization [facility] Address [address] [place] [address] Care Team Providers Care Marine Reporter Name Role Phone Benita Shafer DEPARTMENT DIRECTOR Primary Care Provider [phone] Reason for Visit * Reason Comments Social Work Encounter Details Date Type Department Care Team (Late st Contact Info) Description 12/15/2018 Community Health Team [facility] Women's Services - [address] [address] Kylah Bose Social History Tobacco Use Types [...] check in with patient during her next Printed [employer] Boards Pinner appointment with Dr. Ojeda on 01/03. [facility] Total Time: 5 minutes phone, 5 minutes charting Referral: n/a Follow up: n/a Status: pending documented in this encounter Plan of Treatment Upcoming Encounters Date Type Department Care Team (Steph st Contact Info) Description 02/21/2024 9:45 EDT Office Visit [facility] Adult Primary Care - [address] 157361 Carrington Calderon MD [address] [address] 02/27/2024 8:30 EDT Telemedicine [facility] Sleep Program - [address] 969131 Dwight Colbert [address] [place] [address] [phone] 02/29/2024 10:30 EDT Appointment [facility] Radiology Nuclear Medicine and PET - [address] [id number] 02/29/2024 14:30 EDT Appointment [facility] Radiology Nuclear Medicine and PET - [address] [id number] 03/01/2024 8:00 EDT Appointment [facility] Radiology Nuclear Medicine and PET - [address] [phone] 03/01/2024 9:30 EDT Appointment [facility] Radiology Nuclear Medicine and PET - [address] [address] documented as of this encounter Visit Diagnoses Not on filedocumented in this encounter Care Teams Marine Reporter Relationship Specialty Start Date End Date Benita Shafer NP PCP - General 08/22/18 06/17/19 documented as of this encounter
--- OUTSIDE RECORDS SUMMARY | 2024-01-02 06:20 | XMS_ITS | Encounter Summary ---
Author Organization [facility] Address [address] [place] [address] Care Team Providers Care Supervisor Cytogenetic Laboratory Name Role Phone None, Provider Primary Care Provider Unavailabl e Reason for Visit * Reason Onset Date Comments Coordination Of Care 09/18/2019 Encounter Details Date Type Department Care Team (Late st Contact Info) Description 09/18/2019 Telephone [facility] Women's Services [facility] [address] [place] [address] Cristy Richmond, RN Coordination Of Care Social [...] Description 02/21/2024 9:45 EDT Office Visit [facility] Adult Primary Care - [address] [phone] Carrington Calderon MD [address] [address] 02/27/2024 8:30 EDT Telemedicine [facility] Sleep Program - [address] 889571 Dwight Colbert [address] [place] [address] [phone] 02/29/2024 10:30 EDT Appointment [facility] Radiology Nuclear Medicine and PET [address] [id number] 02/29/2024 14:30 EDT Appointment [facility] Radiology Nuclear Medicine and PET - [address] [id number] 03/01/2024 8:00 EDT Appointment [facility] Radiology Nuclear Medicine and PET [address] [phone] 03/01/2024 9:30 EDT Appointment [facility] Radiology Nuclear Medicine and PET [address] [phone] documented as of this encounter Visit Diagnoses Not on filedocumented in this encounter Care Teams Supervisor Cytogenetic Laboratory Relationship Specialty Start Date End Date None, Provider PCP - General 06/18/19 11/25/19 documented as of this encounter
--- OUTSIDE RECORDS SUMMARY | 2024-01-02 06:20 | XMS_ITS | Encounter Summary ---
Author Organization [facility] Address [address] [place] [address] Care Team Providers Care Project Management Engineer Name Role Phone None, Provider Primary Care Provider Unavailabl e Reason for Visit * Reason Onset Date Comments Results 08/31/2019 Encounter Details Date Type Department Care Team (Late st Contact Info) Description 08/31/2019 Telephone [facility] Women's Services - [address] [address] Susana Tomlinson, RN Results Social History Tobacco [...] Encounter - Susana Tomlinson RN - 08/31/2019 5797 EDT Spoke with Cristy: advised HCG from [...] call us with any concerns or questions. SHEEP SORTER nurse line [phone], or after hours MD line [phone]. documented in this encounter Plan of Treatment Upcoming Encounters Date Type Department Care Team (Late st Contact Info) Description 02/21/2024 9:45 EDT Office Visit [facility] Adult Primary Care - [address] [address] Carrington Calderon MD 1 [facility] 1 [place] [address] 02/27/2024 8:30 EDT Telemedicine [facility] Sleep Program - [address] [address] ColbertDwight garner [address] [place] [address] 02/29/2024 10:30 EDT [facility] Radiology Nuclear Medicine and PET - [address] [address] 02/29/2024 14:30 EDT Appointment [facility] Radiology Nuclear Medicine and PET [address] [id number] 03/01/2024 8:00 EDT Appointment [facility] Radiology Nuclear Medicine and PET - [address] [phone] 03/01/2024 9:30 EDT Appointment [facility] Radiology Nuclear Medicine and PET [address] [id number] documented as of this encounter Visit Diagnoses Not on filedocumented in this encounter Care Teams Project Management Engineer Relationship Specialty Start Date End Date None, Provider PCP - General 06/18/19 11/25/19 documented as of this encounter
--- OUTSIDE RECORDS SUMMARY | 2024-01-02 06:20 | XMS_ITS | Encounter Summary ---
Author Organization [facility] Address [address] [place] [address] Care Team Providers Care Field Contact Person Name Role Phone None, Provider Primary Care [...] [facility] Adult Primary Care - [address] 796311 Carrington Calderon MD [address] [address] 02/27/2024 8:30 EDT Telemedicine [facility] Sleep Program - [address] [address] Dwight Colbert [address] [place] [address] [phone] 02/29/2024 10:30 EDT Appointment [facility] Radiology Nuclear Medicine and PET [address] [id number] 02/29/2024 14:30 EDT Appointment [facility] Radiology Nuclear Medicine and PET [address] [id number] 03/01/2024 8:00 EDT Appointment [facility] Radiology Nuclear Medicine and PET [address] [phone] 03/01/2024 9:30 EDT Appointment [facility] Radiology Nuclear Medicine and PET [address] [phone] documented as of this encounter Visit Diagnoses Not on filedocumented in this encounter Care Teams Field Contact Person Relationship Specialty Start Date End Date None, Provider PCP - General 06/18/19 11/25/19 documented as of this encounter
--- OUTSIDE RECORDS SUMMARY | 2024-01-02 06:20 | XMS_ITS | Encounter Summary ---
Author Organization [facility] Address [address] [place] [address] Care Team Providers Care Director Emergency Services Name Role Phone Benita Shafer CONTACT CENTER CONSULTANT Primary Care Provider [phone] Reason for Visit * Reason Onset Date Comments Labs Only 12/20/2018 Encounter Details Date Type Department Care Team (Late st Contact Info) Description 12/20/2018 Telephone [facility] Women's Services - [address] [address] Susana Tomlinson, RN Labs Only Social History [...] VM, left general message: nurse calling from [facility]???s clinic, re: bloodwork that was due Wednesday 12/20, spoke with lab last bloodwork was done 12/13, very important to get the blood work done, can change day of blood draw if would be better to get this done on . Please call the PIPE AND TANK FABRICATOR nurses at [phone]. This is the 3rd call to her. * Telephone Encounter - Michelle Sanchez RN - 12/21/2018 0904 EDT LM asking pt to call PIPE AND TANK FABRICATOR triage to f/u. If calls back, will discuss moving blood draw for HCG to Tuesday, as pt is off work on that day. TC to [facility]; confirmed that pt has not come to lab as of 1. * Telephone Encounter - Jordyn Wolfe RN - 12/20/2018 1653 EDT Call to [facility] lab. Patient has not gone in for blood work as of yet. Will have nurse call her tomorrow to follow-up if she has not gone in today. * Telephone Encounter - Susana Tomlinson RN - 12/20/2018 1326 EDT Spoke with lab @ [facility]: Crist[facility] has not yet [facility]. documented in this encounter Plan of Treatment Upcoming Encounters Date Type Department Care Team (Late st Contact Info) Description 02/21/2024 9:45 EDT Office Visit [facility] Adult Primary Care - [address] [address] Carrington Calderon MD [address] [address] 02/27/2024 8:30 EDT Telemedicine [facility] Sleep Program - [address] 298211 Dwight Colbert [address] [place] [address] [phone] 02/29/2024 10:30 EDT [facility] PET [address] [id number] 02/29/2024 14:30 EDT Appointment [facility] Radiology Nuclear Medicine and [address] [phone] 03/01/2024 8:00 EDT Appointment [facility] Radiology Nuclear Medicine and PET [address] [id number] 03/01/2024 9:30 EDT Appointment [facility] Radiology Nuclear Medicine and [address] [phone] documented as of this encounter Visit Diagnoses Not on filedocumented in this encounter Care Teams Director Emergency Services Relationship Specialty Start Date End Date Benita Shafer NP PCP - General 08/22/18 06/17/19 documented as of this encounter
--- OUTSIDE RECORDS SUMMARY | 2024-01-02 06:20 | XMS_ITS | Encounter Summary ---
Author Organization [facility] Address [address] [place] [address] Care Team Providers Care Master Coastal Waters Name Role Phone None, Provider Primary Care Provider Unavailabl e Reason for Visit * Reason Onset Date Comments 08/30/2019 Encounter Details Date Type Department Care Team (Late st Contact Info) Description 08/30/2019 Telephone [facility] Women's Services - [address] [address] Nilda Parisi RN Social History Tobacco Use [...] [facility] Adult Primary Care - [address] 651971 Carrington Calderon MD [address] [address] 02/27/2024 8:30 EDT Telemedicine [facility] Sleep Program - [address] 476641 Dwight Colbert [address] [place] [address] 02/29/2024 10:30 EDT [facility] Radiology Nuclear Medicine and PET - [address] 906141 02/29/2024 14:30 EDT [facility] Radiology Nuclear Medicine and PET - [address] [id number] 03/01/2024 8:00 EDT [facility]ointment [facility] Radiology Nuclear Medicine and PET - [address] [id number] 03/01/2024 9:30 EDT Appointment [facility] Radiology Nuclear Medicine and PET - [address] [phone] documented as of this encounter Visit Diagnoses Not on filedocumented in this encounter Care Teams Master Coastal Waters Relationship Specialty Start Date End Date None, Provider PCP - General 06/18/19 11/25/19 documented as of this encounter
--- OUTSIDE RECORDS SUMMARY | 2024-01-02 06:20 | XMS_ITS | Encounter Summary ---
Author Organization [facility] Address [address] [place] [address] Care Team Providers Care Commercial Banker Name Role Phone None, Provider Primary Care Provider Unavailabl e Reason for Visit * Reason Onset Date Comments Other 10/12/2019 Follow up call , seen in ED with vaginal bleeding, miscarriage. Encounter Details Date Type Department Care Team (Late st Contact Info) Description 10/12/2019 Telephone [facility] Women's Services - [address] [address] Jordyn Wolfe, MARCELO Other (Follow up call [...] do this today. Per communication with nurse customer engagement manager Mary, will be able to staff procedure today. Appointment set up for [address] Martínez will call patient to confirm plan. * Telephone Encounter - Jordyn Wolfe RN - 10/12/2019 1027 EDT Call to social services aide Niru Diaz. Niru will call patient as follow up [facility] to miscarriage. * Telephone Encounter - Jordyn [facility] - [address] 324891 Carrington Calderon MD [address] [address] 02/27/2024 8:30 EDT Telemedicine [facility] Sleep Program - [address] [address] Dwight Colbert [address] [place] [address] [phone] 02/29/2024 10:30 EDT Appointment [facility] Radiology Nuclear Medicine and PET - [address] [id number] 02/29/2024 14:30 EDT Appointment [facility] Radiology Nuclear Medicine and PET - [address] [id number] 03/01/2024 8:00 EDT Appointment [facility] Radiology Nuclear Medicine and PET - [address] [id number] 03/01/2024 9:30 EDT Appointment [facility] Radiology [place] [address] documented as of this encounter Visit Diagnoses Not on filedocumented in this encounter Care Teams Commercial Banker Relationship Specialty Start Date End Date None, Provider PCP - General 06/18/19 11/25/19 documented as of this encounter
--- OUTSIDE RECORDS SUMMARY | 2024-01-02 06:20 | XMS_ITS | Encounter Summary ---
Author Organization [facility] Address [address] [place] [address] Care Team Providers Care Solar Installer Name Role Phone None, Provider Primary Care Provider Unavailabl e Encounter Details Date Type Department Care Team (Late st Contact Info) Description 09/05/2019 Orders Only [facility] Women's Services - [address] [address] Jonas Ojeda MD [address] [place] [address] [address] Less than 8 weeks gestation [...] Visit [facility] Adult Primary Care - [address] [address] Carrington Calderon MD [address] [address] 02/27/2024 8:30 EDT Telemedicine [facility] Sleep Program - [address] 325391 Dwight Colbert [address] [place] [address] [phone] 02/29/2024 10:30 EDT Appointment [facility] Radiology Nuclear Medicine and PET [address] [phone] 02/29/2024 14:30 EDT Appointment [facility] Radiology Nuclear Medicine and PET [address] [id number] 03/01/2024 8:00 EDT Appointment [facility] Radiology Nuclear Medicine and PET [address] [id number] 03/01/2024 9:30 EDT Appointment [facility] Radiology Nuclear Medicine and PET [address] [phone] documented as of this encounter Visit Diagnoses Diagnosis Less than 8 weeks gestation of - Primary state, incidental documented in this encounter Care Teams Solar Installer Relationship Specialty Start Date End Date None, Provider PCP - General 06/18/19 11/25/19 documented as of this encounter
--- OUTSIDE RECORDS SUMMARY | 2024-01-02 06:20 | XMS_ITS | Encounter Summary ---
Author Organization [facility] Address [address] [place] [address] Care Team Providers Care General Utility Maintenance Repairer Name Role Phone None, Provider Primary Care Provider Unavailabl e Reason for Visit * Reason Onset Date Comments Vaginal Bleeding 10/02/2019 Encounter Details Date Type Department Care Team (Late st Contact Info) Description 10/02/[address] [facility] Obstetrics & Midwifery - [facility] [address] [place] [address] Jenny Heart, RN Vaginal Bleeding Social History [...] - 10/02/2019 1532 EDT Phone call to Cristy ([id number]) - she has a confirmed IUP [...] [facility] Adult Primary Care - [address] [address] Carrington Calderon MD 1 [facility] 1 [place] [address] 02/27/2024 8:30 EDT Telemedicine [facility] Sleep Program - [address] [address] ColbertDwight garner [address] [place] [address] 532691 02/29/2024 10:30 EDT [facility]ment [facility] Radiology Nuclear Medicine and PET - [address] 427991 02/29/2024 14:30 EDT Appointment [facility] Radiology Nuclear Medicine and PET - [address] [phone] 03/01/2024 8:00 EDT Appointment [facility] Radiology Nuclear Medicine and PET [address] [phone] 03/01/2024 9:30 EDT Appointment [facility] Radiology Nuclear Medicine and PET [address] [phone] documented as of this encounter Visit Diagnoses Not on filedocumented in this encounter Care Teams General Utility Maintenance Repairer Relationship Specialty Start Date End Date None, Provider PCP - General 06/18/19 11/25/19 documented as of this encounter
--- OUTSIDE RECORDS SUMMARY | 2024-01-02 06:20 | XMS_ITS | Encounter Summary ---
Author Organization [facility] Address [address] [place] [address] Care Team Providers Care Clay Products Glazer Name Role Phone None, Provider Primary Care [...] [facility] Adult Primary Care - [address] 027001 Carrington Calderon MD [address] [address] 02/27/2024 8:30 EDT Telemedicine [facility] Sleep Program - [address] [address] Dwight Colbert [address] [place] [address] [phone] 02/29/2024 10:30 EDT Appointment [facility] Radiology Nuclear Medicine and PET [address] [phone] 02/29/2024 14:30 EDT Appointment [facility] Radiology Nuclear Medicine and PET [address] [id number] 03/01/2024 8:00 EDT Appointment [facility] Radiology Nuclear Medicine and PET [address] [phone] 03/01/2024 9:30 EDT Appointment [facility] Radiology Nuclear Medicine and PET [address] [phone] documented as of this encounter Visit Diagnoses Not on filedocumented in this encounter Care Teams [employer] Glazer Relationship Specialty Start Date End Date None, Provider PCP - General 06/18/19 11/25/19 documented as of this encounter
--- OUTSIDE RECORDS SUMMARY | 2024-01-02 06:20 | XMS_ITS | Encounter Summary ---
Author Organization [facility] Address [address] [place] [address] Care Team Providers Care Batch Or Continuous Still Operator Name Role Phone Benita Shafer RESIDENTIAL RECYCLE DRIVER Primary Care Provider [phone] Reason for Visit * Reason Comments Social Work Encounter Details Date Type Department Care Team (Late st Contact Info) Description 01/03/2019 Community Health Team [facility] Women's Services - [address] [address] Eryn Diaz Social History Tobacco Use Types [...] to inform her that her next sched [facility] 01/10 and03/02 (left vm). SW not avail 01/10, so enc pt to call or text SW to sched SW appt. SW will zandra pt asinactive for now. [facility] Total Time: 20 min total 5 min [...] [facility] Adult Primary Care - [address] 182081 Carrington Calderon MD [address] [place] [address] 1 [place] [id number] 02/27/2024 8:30 EDT Telemedicine [facility] Sleep Program - [address] [phone] Dwight Colbert [address] [place] [address] [phone] 02/29/2024 10:30 EDT Appointment [facility] Radiology Nuclear Medicine and PET - [address] [phone] 02/29/2024 14:30 EDT Appointment [facility] Radiology Nuclear Medicine and PET [address] [address] 03/01/2024 8:00 EDT Appointment [facility] Radiology Nuclear Medicine and PET [address] [address] 03/01/2024 9:30 EDT Appointment [facility] Radiology Nuclear Medicine and PET [address] [address] documented as of this encounter Visit Diagnoses Not on filedocumented in this encounter Care Teams Batch Or Continuous Still Operator Relationship Specialty Start Date End Date Benita Shafer NP PCP - General 08/22/18 06/17/19 documented as of this encounter
--- OUTSIDE RECORDS SUMMARY | 2024-01-02 06:20 | XMS_ITS | Encounter Summary ---
Author Organization [facility] Address [address] [place] [address] Care Team Providers Care Screen Printing Press Operator Name Role Phone None, Provider Primary Care Provider Unavailabl e Reason for Visit * Reason Comments Procedure SARAH * Consult (3 - 10 Business Days) - Closed Specialty Diagnoses / Procedures Referred By Contac t Referred To Contact Diagnoses in first trimester Andrés Mcfarlane MD 111 [facility] 1 [place] [address] [facility] Ep4 Ob/Mfm [address] [place] [address] Referral ID Status Reason Start Date Expiration Date V isits Requested Visits Authorized [id number] Closed Specialty Services Required 10/11/2019 1 1 Encounter Details Date Type Department Care Team (Late st Contact Info) Description 10/12/2019 15:00 EDT Initial consult [facility] Women's Services - [address] [address] David Martínez MD [address] [place] [address] 4 [place] [address] Missed (Primary Dx) Social History [...] consent, the patient was placed on the AUTOMOTIVE WARRANTY ADMINISTRATOR exam table and a bedside ultrasound performed. [...] [facility] - [address] [address] Carrington Calderon MD [address] [address] 02/27/2024 8:30 EDT Telemedicine [facility] Sleep Program - [address] [phone] Dwight Colbert [address] [place] [phone] 02/29/2024 10:30 EDT Appointment [facility] Radiology Nuclear Medicine and PET [address] [phone] 02/29/2024 14:30 EDT Appointment [facility] Radiology Nuclear Medicine and [address] [phone] 03/01/2024 8:00 EDT Appointment [facility] Radiology Nuclear Medicine and PET [address] [id number] 03/01/2024 9:30 EDT Appointment [facility] Radiology Nuclear Medicine and PET [address] [phone] documented as of this encounter Visit Diagnoses Diagnosis Missed - Primary documented in this encounter Care Teams Screen Printing Press Operator Relationship Specialty Start Date End Date None, Provider PCP - General 06/18/19 11/25/19 documented as of this encounter
--- OUTSIDE RECORDS SUMMARY | 2024-01-02 06:20 | XMS_ITS | Encounter Summary ---
Author Organization [facility] Address [address] [place] [address] Care Team Providers Care Watch Assembler Name Role Phone None, Provider Primary Care Provider Unavailabl e Reason for Visit * Reason Onset Date Comments Follow-up 10/15/2019 Encounter Details Date Type Department Care Team (Late st Contact Info) Description 10/15/2019 Telephone [facility] Women's Services [facility] [address] [place] [address] Susana Tomlinson, RN Follow-up Social History Tobacco [...] Telephone Encounter - Susana Tomlinson RN - 10/15/2019 0918 EDT Spoke with Cristy: her cramping is [...] thru this again. She will call the [facility] at [phone] to set up a Control talk to [...] 02/21/2024 9:45 EDT Office Visit [facility] Adult Primary Care - [address] 805271 Carrington Calderon MD 1 [facility] 1 [place] [address] 02/27/2024 8:30 EDT Telemedicine [facility] Sleep Program - [address] [address] Dwight Colbert [address] [place] [phone] (Hdyf) [phone] (Fax) 02/29/2024 10:30 EDT [facility] Radiology Nuclear Medicine and PET [address] [id number] 02/29/2024 14:30 EDT Appointment [facility] Radiology Nuclear Medicine and PET [address] [id number] 03/01/2024 8:00 EDT Appointment [facility] Radiology Nuclear Medicine and PET [address] [id number] 03/01/2024 9:30 EDT Appointment [facility] Radiology Nuclear Medicine and PET [address] [phone] documented as of this encounter Visit Diagnoses Not on filedocumented in this encounter Care Teams Watch Assembler Relationship Specialty Start Date End Date None, Provider PCP - General 06/18/19 11/25/19 documented as of this encounter
--- OUTSIDE RECORDS SUMMARY | 2024-01-02 06:20 | XMS_ITS | Encounter Summary ---
Author Organization [facility] Address [address] [place] [address] Care Team Providers Care Motorbike Courier Name Role Phone None, Provider Primary Care Provider Unavailabl e Reason for Visit * Reason Comments Nutrition Counseling Type 2 DM first tri mester * Consult (Routine) - Order Cancelled Specialty Diagnoses / Procedures Referred By Kit goode Referred To Contact Obstetrics Diagnoses with type 2 diabetes mellitus in first trimester Mayra Lund MD [address] [place] [phone] [facility] Ep4 Ob/Mfm [address] [place] [id number] Referral ID Status Reason Start Date Expiration Date Visits Requested Visits Authorized [id number] Order Cancelled Specialty Services Required 10/01/2019 1 1 Encounter Details Date Type Department Care Team (Late st Contact Info) Description 10/08/2019 14:00 EDT Nutrition [facility] Obstetrics & Midwifery - [facility] [address] [place], [place] [phone] Hazardous Substances Engineer, [facility] Ep4 Obgyn Class 2 severe obesity due to excess calories with serious comorbidity in adult, unspecified BMI ([facility]); Type 2 diabetes mellitus with other specified complication, unspecified whether termite renewal inspector insulin use ([facility]) Social History Tobacco Use Types Packs/Day [...] Carline Weathers, RD - 10/08/2019 1400 EDT welfare manager Clinic Initial Nutrition Assessment Form Attempted Telehealth visit, but Telehealth is not available (for me or for the patient). Obtained verbal consent from patient or the patient's adult cash posting representative for use of the telephone to [...] Diagnosis Date ??? Depression ??? Diabetes mellitus ([facility]) ??? Migraine, unspecified, without mention of intractable [...] respective roles) participated in today's encounter: Cristy Luo, patient Carline Weathers RD,CD, dietitian This visit [...] Visit [facility] Adult Primary Care - [address] [phone] Carrington Calderon MD [address] [phone] 02/27/2024 8:30 EDT Telemedicine [facility] Sleep Program - [address] 084971 Dwight Colbert [address] [place] [address] [phone] 02/29/2024 10:30 EDT [facility] Radiology Nuclear Medicine and PET - [address] [address] 02/29/2024 14:30 EDT [facility] Radiology Nuclear Medicine and PET - [address] [address] 03/01/2024 8:00 EDT [facility] Radiology Nuclear Medicine and PET - [address] [address] 03/01/2024 9:30 EDT [facility]ment [facility] Radiology Nuclear Medicine and PET [address] [phone] documented as of this encounter Visit Diagnoses Diagnosis Class 2 severe obesity due to excess calories with serious comorbidity in adult, unspecified BMI ([facility]) Type 2 diabetes mellitus with other specified complication, unspecified whether termite renewal inspector insulin use ([facility]) documented in this encounter Care Teams Motorbike Courier Relationship Specialty Start Date End Date None, Provider PCP - General 06/18/19 11/25/19 documented as of this encounter
--- OUTSIDE RECORDS SUMMARY | 2024-01-02 06:20 | XMS_ITS | Encounter Summary ---
Author Organization [facility] Address [address] [place] [address] Care Team Providers Care Survey Research Teacher Name Role Phone None, Provider Primary [...] 8:19 EST - 06/18/2019 15:19 EST Emergency [facility] Emergency Department - [facility] [address] [place] [phone] Omayra Schuler PA-C [address] [place] [address], Level 1 [place] [phone] Acute non-recurrent maxillary sinusitis (Primary Dx); Acute [...] be sent through Care Everywhere. * Sinusitis (Faroese) documented in this encounter Medications at Time [...] Code Departure Means Destination Home or Self Group Home documented in this encounter ED Notes [...] long-distance travel or immobilizations. 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 Review of [...] appears to be a good tracing. Attending helper chicken farm not immediately available for acute interpretation. Radiology [...] follow-up with primary care physician and discussed chkf-phr-tlvihpk medications for pain control. Patient and family [...] 14:44 No flowsheet data found. * Judi Gomes RN - 06/18/2019 0837 EST 12 Lead EKG Performed by JUDI GOMES RN and shown to Omayra Schuler PA. documented in this encounter Plan of Treatment Upcoming Encounters Date Type Department Care Team (Late st Contact Info) Description 02/21/2024 9:45 EDT Office Visit [facility] Adult Primary Care - [address] 540471 Carrington Calderon MD [address] [address] 02/27/2024 8:30 EDT Telemedicine [facility] Sleep Program - [address] [address] Dwight Colbert [address] [place] [address] [phone] 02/29/2024 10:30 EDT [facility]ment [facility] Radiology Nuclear Medicine and PET - [address] [phone] 02/29/2024 14:30 EDT [facility] Radiology Nuclear Medicine and PET - [address] [phone] 03/01/2024 8:00 EDT Appointment [facility] Radiology Nuclear Medicine and PET - [address] [address] 03/01/2024 9:30 EDT Appointment [facility] Radiology [place] [address] documented as of this encounter Procedures Procedure [...] EST) 06/18/2019 16:2 1 EST Scan 2 Printing Press Operator Apprentice PROCEDURE/MINOR BRAULIO GICAL ORDERABLES * XR CHEST [...] above interpretation andagree with the findings. Omayra Schuler PA-C [facility] DIAGNOSTIC IMAGING ORDERABLES * (ABNORMAL) BASIC METABOLIC PANEL (BMP) (06/18/2019 9:01 EST) Sodium 136 136 - 145 mEq/L 06/18/2019 9:25 [facility] Potassium 4.6 3.5 - 5.0 mEq/L 06/18/2019 9:25 [facility] Chloride 102 96 - 110 mEq/L 06/18/2019 9:25 [facility] CO2 Total 27 22 - 32 mEq/L 06/18/2019 9:25 [facility] Glucose 256(H) 70 - 100 mg/dL 06/18/2019 9:25 [facility] Calcium 9.2 8.5 - 10.5 mg/dL 06/18/2019 9:25 [facility] Calculated Calcium 9.4 8.5 - 10.5 mg/dL 06/18/2019 9:25 [facility] BUN 10 10 - 26 mg/dL 06/18/2019 9:25 [facility] Creatinine 0.43(L) 0.52 - 1.04 mg/dL 06/18/2019 9:25 [facility] eGFR 133 >60 mL/min/1.7 3m2 06/18/2019 9:25 [facility] Comment:eGFR calculated in g CKD-EPI equation for non- Americans. Multiply eGFR by 1.16 for patients. Blood VENOUS BLOOD / Unknown Venipuncture / Unknown 06/18/2019 9:01 EST 06/18/2019 9:[address] [facility] HERNANDE[facility] CHEMISTRY & BLO OD GAS ORDERABLES [facility] [address] [place] [address] * (ABNORMAL) COMPLETE BLOOD COUNT AND DIFFERENTIAL (06/18/2019 9:01 EST) WBC 10.84 4.00 - 12.40 K/cmm 06/18/2019 9:15 [facility] RBC 4.58 3.86 - 5.04 M/cmm 06/18/2019 9:15 [facility] Hemoglobin 14.1 11.6 - 15.2 gm/dL 06/18/2019 9:15 [facility] HCT 40.9 34.9 - 44.4 % 06/18/2019 9:15 [facility] MCV 89 81 - 98 fl 06/18/2019 9:15 [facility] MCH 30.8 26.7 - 33.3 pg 06/18/2019 9:15 [facility] MCHC 34.5 32.1 - 35.9 gm/dL 06/18/2019 9:15 [facility] RDW-CV 12.2 <14.7 % 06/18/2019 9:15 [facility] RDW-SD 39.5 <50.4 fl 06/18/2019 9:15 [facility] PLT 349 141 - 377 K/cmm 06/18/2019 9:15 [facility] MPV 9.6 9.5 - 12.7 fl 06/18/2019 9:15 [facility] % Neutrophils 51.3 % 06/18/2019 9:15 [facility] % Lymphocytes 33.8 % 06/18/2019 9:15 [facility] % Monocytes 9.9 % 06/18/2019 9:15 [facility] % Eosinophils 4.2 % 06/18/2019 9:15 [facility] % Basophils 0.5 % 06/18/2019 9:15 [facility] % Immature Grans 0.3 % 06/18/19 20 9:15 [facility] Absolute Neutrophils 5.57 2.20 - 8.85 K/cmm 06/18/2019 9:15 [facility] Absolute Lymphocytes 3.66(H) 1.09 - 3.30 K/cmm 06/18/2019 9:15 [facility] Absolute Monocytes 1.07(H) 0.10 - 0.80 K/cmm 06/18/2019 9:15 [facility] Absolute Eosinophils 0.46 0.03 - 0.61 K/cmm 06/18/2019 9:15 [facility] ABS Basophils 0.05 0.01 - 0.11 K/cmm 06/18/2019 9:15 [facility] Absolute Immature Grans 0.03 0.00 - 0.06 K/cmm 06/18/2019 9:15 [facility] Type of Differential: Auto 06/18/2019 9:15 [facility] Blood VENOUS BLOOD / Unknown Venipuncture / Unknown 06/18/2019 9:01 EST 06/18/2019 9:09 EST Omayra Schuler PA-C PACKAGES & DNA PROBE ORDERABLES Performing Organization Address [facility]/State/[facility] Co de Phone Number [facility] [address] [place] [address] * EKG 12-LEAD (06/18/2019 8:28 EST) 06/18/2019 8:28 EST Narrative [facility] EKG - 06/18/2019 14:05 EST ?[facility] Emergency ? Test Date: ?2019-06-18 Pat Name: ? CRISTY LUO ?Department: ?? ED ? Room: ? GT33 Gender: ? Female ? Network Analyst: ?? [id number] : ?1985 ? Requested By: [facility] Order Number: [id number] ? Reading MD: ?? FRAN LUCIANO SA MD ? Measurements Intervals ?[place] ? Rate: ? 94 ? P: ?51 [...] Fran Dowling Sa, MD - 06/18/2019 [facility] Emergency Test Date: 2019-06-18 Pat Name: CRISTY LUO Department: ED Room: 33 Gender: Female Network Analyst: [id number] : 1985 Requested By: [facility] OKEEFE Order Number: [id number] Reading MD: FRAN GRAYSON Measurements Intervals [place] Rate: 94 P: 51 NE: 138 QRS: [...] EST by FRAN PALACIOS SA, MD. Omayra Chavira-Shiva CARDIAC ECG ORD ERABLES [facility] EKG documented in this encounter Visit Diagnoses [...] not cover this medication. There is an feoi-dob-edibanc cream or an lwml-rwt-zpjvwyq patch with a lower concentration that is [...] dose, On 06/18/19 at 0900, STAT 0906 ([facility] ider: Judi Gomes RN) documented in this encounter Care Teams Survey Research Teacher Relationship Specialty Start Date End Date None, Provider PCP - General 06/18/19 11/25/19 documented as of this encounter
--- OUTSIDE RECORDS SUMMARY | 2024-01-02 06:20 | XMS_ITS | Encounter Summary ---
Author Organization [facility] Address [address] [place] [address] Care Team Providers Care Knot Tier Name Role Phone Benita Shafer GUSTAVO Primary Care Provider [phone] Reason for Visit * Reason Onset Date Comments Appointment Related 03/02/2019 Encounter Details Date Type Department Care Team (Late st Contact Info) Description 03/02/2019 Telephone [facility] Obstetrics & Midwifery - [facility] [address] [place], [place] [phone] Deborah Prakash MD 111 [facility], Level 4 [place] [address] Appointment Related Social History Tobacco [...] Info) Description 02/21/2024 9:45 EDT Office Visit [facility] Adult Primary Care - [address] [phone] Carrington Calderon MD [address] [phone] 02/27/2024 8:30 EDT Telemedicine [facility] Sleep Program - [address] [address] Dwight Colbert [address] [place] [address] [phone] 02/29/2024 10:30 EDT Appointment [facility] Radiology Nuclear Medicine and PET - [address] [phone] 02/29/2024 14:30 EDT Appointment [facility] Radiology Nuclear Medicine and PET [address] [phone] 03/01/2024 8:00 EDT Appointment [facility] Radiology Nuclear Medicine and PET - [address] 975391 03/01/2024 9:30 EDT Appointment [facility] Radiology Nuclear Medicine and PET - [address] [address] documented as of this encounter Visit Diagnoses Not on filedocumented in this encounter Care Teams Knot Tier Relationship Specialty Start Date End Date Benita Shafer NP PCP - General 08/22/18 06/17/19 documented as of this encounter
--- OUTSIDE RECORDS SUMMARY | 2024-01-02 06:20 | XMS_ITS | Encounter Summary ---
Author Organization [facility] Address [address] [place] [address] Care Team Providers Care Injection Machine Operator Name Role Phone Benita Shafer IRRIGATIONIST Primary Care Provider [phone] Reason for Visit * Reason Onset Date Comments Results 12/15/2018 Encounter Details Date Type Department Care Team (Late st Contact Info) Description 12/15/2018 Telephone [facility] Women's Services - [address] [address] Susana Tomlinson, RN Results Social History Tobacco [...] left general message: nurse calling from [facility] Women???s clinic, re: blood work results, level has decreased, plan per MD team is to repeat blood work in one week from last (12/20). Also reminder that you have an appt scheduled for 02/24/19 @ 9am, also appt on 01/03 but will will check with provider to determine if appropriate. Please call the [employer] nurses at [phone]. When Cristy calls will give details: HCG [...] [facility] Adult Primary Care - [address] 682251 Carrington Calderon MD [address] [phone] 02/27/2024 8:30 EDT Telemedicine [facility] Sleep Program - [address] [phone] Dwight Colbert [address] [place] [phone] 02/29/2024 10:30 EDT Appointment [facility] Radiology Nuclear Medicine and PET - [address] [phone] 02/29/2024 14:30 EDT Appointment [facility] Radiology Nuclear Medicine and PET [address] [address] 03/01/2024 8:00 EDT Appointment [facility] Radiology Nuclear Medicine and PET [address] [address] 03/01/2024 9:30 EDT Appointment [facility] Radiology Nuclear Medicine and PET [address] [address] documented as of this encounter Procedures Procedure Name Priority Date/Time Associated Diagnosis Comments QUANT BETA HCG, Routine 12/13/2018 6:27 EDT documented in this encounter Results * QUANT BETA HCG, (12/13/2018 6:27 EDT) HCG, External 13.63 2.39 - 15,000 mIU/mL [facility] Blood specimen (specimen) 12/13/2018 6:27 EDT Charu Flynn MD CHEMISTRY & BLOO D GAS ORDERABLES [facility] documented in this encounter Visit Diagnoses Not on filedocumented in this encounter Care Teams Injection Machine Operator Relationship Specialty Start Date End Date Benita Shafer NP PCP - General 08/22/18 06/17/19 documented as of this encounter
--- OUTSIDE RECORDS SUMMARY | 2024-01-02 06:20 | XMS_ITS | Encounter Summary ---
Author Organization [facility] Address [address] [place] [address] Care Team Providers Care Life Science Research Assistant Name Role Phone Benita Shafer SPRING UPHOLSTERER Primary Care Provider [phone] Reason for Visit * Reason Onset Date Comments Results 12/25/2018 Encounter Details Date Type Department Care Team (Late st Contact Info) Description 12/25/2018 Telephone [facility] Women's Services - [address] [address] Susana Tomlinson, RN Results Social History Tobacco [...] Telephone Encounter - Susana Tomlinson RN - 12/25/2018 0955 EDT Spoke with [facility] lab, Cristy has not has HCG blood draw sine 12/13/18. Letter sent, removed from [employer]. documented in this encounter Plan of Treatment Upcoming Encounters Date Type Department Care Team (Late st Contact Info) Description 02/21/2024 9:45 EDT Office Visit [facility] Adult Primary Care - [address] [phone] Carrington Calderon MD [address] [phone] 02/27/2024 8:30 EDT Telemedicine [facility] Sleep Program - [address] [phone] Dwight Colbert [address] [place] [address] [phone] 02/29/2024 10:30 EDT Appointment [facility] Radiology Nuclear Medicine and PET [address] [phone] 02/29/2024 14:30 EDT Appointment [facility] Radiology Nuclear Medicine and PET [address] [phone] 03/01/2024 8:00 EDT Appointment [facility] Radiology Nuclear Medicine and PET [address] [phone] 03/01/2024 9:30 EDT Appointment [facility] Radiology Nuclear Medicine and PET [address] [phone] documented as of this encounter Visit Diagnoses Not on filedocumented in this encounter Care Teams Life Science Research Assistant Relationship Specialty Start Date End Date Benita Shafer NP PCP - General 08/22/18 06/17/19 documented as of this encounter
--- OUTSIDE RECORDS SUMMARY | 2024-01-02 06:20 | XMS_ITS | Encounter Summary ---
Author Organization [facility] Address [address] [place] [address] Care Team Providers Care Ticket Sorter Name Role Phone None, Provider Primary Care Provider Unavailabl e Reason for Visit * Reason Comments Injections RhoGAM Encounter Details Date Type Department Care Team (Late st Contact Info) Description 10/03/2019 10:30 EDT Office Visit [facility] Obstetrics & Midwifery - [facility] [address] [place] [address] Nurse, Mfm First trimester bleeding (Primary Dx) [...] [facility] Adult Primary Care - [address] [phone] Carrington Calderon MD [address] [place] [address] 1 [place] [phone] 02/27/2024 8:30 EDT Telemedicine [facility] Sleep Program - [address] [phone] Dwight Colbert [address] [place], [place] [phone] 02/29/2024 10:30 EDT Appointment [facility] Radiology Nuclear Medicine and PET [address] [phone] 02/29/2024 14:30 EDT Appointment [facility] Radiology Nuclear Medicine and PET [address] [address] 03/01/2024 8:00 EDT Appointment [facility] Radiology Nuclear Medicine and PET [address] [phone] 03/01/2024 9:30 EDT Appointment [facility] Radiology Nuclear Medicine and PET [address] [phone] documented as of this encounter Visit Diagnoses Diagnosis First trimester bleeding- Primary Unspecified hemorrhage in early , antepartum documented in this encounter Administered Medications Administered Medications Medication Order MAR Action Action Date Dose Rate Site Rho(D) Immune Globulin IM Intramuscular Given 10/03/2019 10:56 EDT 300 mcg Right D eltoid documented in this encounter Care Teams Ticket Sorter Relationship Specialty Start Date End Date None, Provider PCP - General 06/18/19 11/25/19 documented as of this encounter
--- OUTSIDE RECORDS SUMMARY | 2024-01-02 06:20 | XMS_ITS | Encounter Summary ---
Author Organization [facility] Address [address] [place] [address] Care Team Providers Care Wooden Box Maker Name Role Phone None, Provider Primary Care Provider Unavailabl e Encounter Details Date Type Department Care Team (Late st Contact Info) Description 10/04/2019 Orders Only [facility] Obstetrics & Midwifery - [address] [address] Kylah Jimenes, RN Social History Tobacco Use [...] [facility] - [address] [address] Carrington Calderon MD [address] [address] 02/27/2024 8:30 EDT Telemedicine [facility] Sleep Program - [address] 127751 Dwight Colbert [address] [place] [address] [phone] 02/29/2024 10:30 EDT Appointment [facility] Radiology Nuclear Medicine and PET [address] 179521 02/29/2024 14:30 EDT Appointment [facility] Radiology Nuclear Medicine and PET [address] 480771 03/01/2024 8:00 EDT Appointment [facility] Radiology Nuclear Medicine and PET [address] [id number] 03/01/2024 9:30 EDT Appointment [facility] Radiology Nuclear Medicine and PET [address] [phone] documented as of this encounter Visit Diagnoses Not on filedocumented in this encounter Care Teams Wooden Box Maker Relationship Specialty Start Date End Date None, Provider PCP - General 06/18/19 11/25/19 documented as of this encounter
--- OUTSIDE RECORDS SUMMARY | 2024-01-02 06:20 | XMS_ITS | Encounter Summary ---
Author Organization [facility] Address [address] [place] [address] Care Team Providers Care Fire Officer Name Role Phone None, Provider Primary Care Provider Unavailabl e Reason for Visit * Reason Onset Date Comments Appointment Related 10/12/2019 Encounter Details Date Type Department Care Team (Late st Contact Info) Description 10/12/2019 Telephone [facility] Women's Services [facility] [address] [place] [address] Karoline Wolfe, MARCELO Appointment Related Social History [...] to patient. I spoke to patient. manager appointment Mary Hurtado and Dr. Martínez approve if [...] Visit [facility] Adult Primary Care - [address] [phone] Carrington Calderon MD 1 [facility] 1 [place] [phone] 02/27/2024 8:30 EDT Telemedicine [facility] Sleep Program - [address] [phone] Dwight Colbert [address] [place] [address] [phone] 02/29/2024 10:30 EDT Appointment [facility] Radiology Nuclear Medicine and PET - [address] [address] 02/29/2024 14:30 EDT [facility] Radiology Nuclear Medicine and PET - [address] [address] 03/01/2024 8:00 EDT [facility] Radiology Nuclear Medicine and PET - [address] [address] 03/01/2024 9:30 EDT Appointment [facility] Radiology Nuclear Medicine and PET - [address] [address] documented as of this encounter Visit Diagnoses Diagnosis Recurrent loss- Primary documented in this encounter Care Teams Fire Officer Relationship Specialty Start Date End Date None, Provider PCP - General 06/18/19 11/25/19 documented as of this encounter
--- OUTSIDE RECORDS SUMMARY | 2024-01-02 06:20 | XMS_ITS | Encounter Summary ---
Author Organization [facility] Address [address] [place] [address] Care Team Providers Care Cloth Folder Hand Name Role Phone None, Provider Primary Care [...] [facility] Adult Primary Care - [address] 170151 Carrington Calderon MD [address] [address] 02/27/2024 8:30 EDT Telemedicine [facility] Sleep Program - [address] [address] Dwight Colbert [address] [place] [address] [phone] 02/29/2024 10:30 EDT Appointment [facility] Radiology Nuclear Medicine and PET [address] [phone] 02/29/2024 14:30 EDT Appointment [facility] Radiology Nuclear Medicine and PET [address] [id number] 03/01/2024 8:00 EDT Appointment [facility] Radiology Nuclear Medicine and PET [address] [phone] 03/01/2024 9:30 EDT Appointment [facility] Radiology Nuclear Medicine and PET [address] [phone] documented as of this encounter Visit Diagnoses Not on filedocumented in this encounter Care Teams Cloth Folder Hand Relationship Specialty Start Date End Date None, Provider PCP - General 06/18/19 11/25/19 documented as of this encounter
--- OUTSIDE RECORDS SUMMARY | 2024-01-02 06:20 | XMS_ITS | Encounter Summary ---
Author Organization [facility] Address [address] [place] [address] Care Team Providers Care Wilton Weaver Name Role Phone None, Provider Primary Care Provider Unavailabl e Reason for Visit * Reason Onset Date Comments Advice Only 10/02/2019 Encounter Details Date Type Department Care Team (Late st Contact Info) Description 10/02/2019 Telephone [facility] Women's Services [address] 539391 Deepali Le MD 111 [facility], Level 4 [place] [address] Advice Only Social History Tobacco [...] Also- is she interested in CF/SMA testing? [facility] phone number left and requested patient call back. * Telephone Encounter - Cynthia Costello - 10/02/2019 0872 EDT I called pt this morning to inform her of 3 scheduled appts (1 nutrition, 1 ultrasound and 1 routine ). She said yes to all three but asked if she would be getting bloodwork done at the visit(s) at the end on October, around her 12wk zandra. She would like to discuss this with a nurse. She can be reached at: [phone] documented in this encounter Plan of Treatment Upcoming Encounters Date Type Department Care Team (Late st Contact Info) Description 02/21/2024 9:45 EDT Office Visit [facility] Adult Primary Care - [address] [phone] Carrington Calderon MD 1 [facility] Level 1 [place] [phone] 02/27/2024 8:30 EDT Telemedicine [facility] Sleep Program - [address] [place] [address] [place] [address] Dwight Colbert [address] [place] [address] 02/29/2024 10:30 EDT [facility] Radiology Nuclear Medicine and PET - [address] [address] 02/29/2024 14:30 EDT Appointment [facility] Radiology Nuclear Medicine and PET [address] 985571 03/01/2024 8:00 EDT Appointment [facility] Radiology Nuclear Medicine and PET [address] [phone] 03/01/2024 9:30 EDT Appointment [facility] Radiology Nuclear Medicine and PET - [address] 060941 documented as of this encounter Visit Diagnoses Not on filedocumented in this encounter Care Teams Wilton Weaver Relationship Specialty Start Date End Date None, Provider PCP - General 06/18/19 11/25/19 documented as of this encounter
--- OUTSIDE RECORDS SUMMARY | 2024-01-02 06:20 | XMS_ITS | Encounter Summary ---
Author Organization [facility] Address [address] [place] [address] Care Team Providers Care Interior Surface Insulation Worker Name Role Phone None, Provider Primary Care Provider Unavailabl e Reason for Referral * SISTER SUPERIOR (Routine) - Specialty Report Received Specialty Diagnoses / Procedures Referred By Contac t Referred To Contact Diagnoses of unknown anatomic location Procedures US OB FIRST TRIMESTER (LESS THAN 14 WEEKS) TRANSVAGINAL Charu Flynn MD [address] [place] [phone] Referral ID Status Reason Start Date Expiration Date V isits Requested Visits Authorized [id number] Specialty Report Received 09/03/2019 1 1 Reason for Visit * SISTER SUPERIOR (Routine) - Specialty Report Received Specialty Diagnoses / Procedures Referred By Contac t Referred To Contact Diagnoses of unknown anatomic location Procedures US OB FIRST TRIMESTER (LESS THAN 14 WEEKS) TRANSVAGINAL Charu Flynn MD [address] [address] Referral ID Status Reason Start Date Expiration Date V isits Requested Visits Authorized [id number] Specialty Report Received 09/03/2019 1 1 Encounter Details Date Type Department Care Team (Latest Contact Info) Description 09/05/2019 10:26 EDT - 09/06/2019 23:59 EDT Hospital Encounter [facility] Women's Services [address] [address] of unknown anatomic location Discharge Disposition: Home [...] Visit [facility] Adult Primary Care - [address] 153731 Carrington Calderon MD [address] [address] 02/27/2024 8:30 EDT Telemedicine [facility] Sleep Program - [address] 344391 Dwight Colbert [address] [place] [address] [phone] 02/29/2024 10:30 EDT Appointment [facility] Radiology Nuclear Medicine and PET [address] [phone] 02/29/2024 14:30 EDT Appointment [facility] Radiology Nuclear Medicine and PET - [address] [phone] 03/01/2024 8:00 EDT Appointment [facility] Radiology Nuclear Medicine and PET [address] [phone] 03/01/2024 9:30 EDT Appointment [facility] Radiology Nuclear Medicine and PET [address] [phone] documented as of this encounter Procedures Procedure [...] Sufficient. Impression 1st Trimester OB scan ,transvaginal +[id number] Single intrauterine gestational sac and yolk sac. [...] Sufficient. Impression 1st Trimester OB scan ,transvaginal +[id number] Single intrauterine gestational sac and yolk sac. A pole cannot beclearly identified on today's examination. Follow-up follow up US in 2 weeks. Comment ========= Z34.8 encounter for supervision of other normal . Resultsdiscussed w/patient. DATE OF SERVICE: 09/05/2019 Charu Flynn MD [facility] OB ORDERA BLES documented in this encounter Visit Diagnoses Diagnosis of unknown anatomic location state, incidental documented in this encounter Care Teams Interior Surface Insulation Worker Relationship Specialty Start Date End Date None, Provider PCP - General 06/18/19 11/25/19 documented as of this encounter
--- OUTSIDE RECORDS SUMMARY | 2024-01-02 06:20 | XMS_ITS | Encounter Summary ---
Author Organization [facility] Address [address] [place] [address] Care Team Providers Care Commuter Train Operator Name Role Phone None, Provider Primary Care Provider Unavailabl e Reason for Referral * APPLICATION SUPPORT INTERN (Routine) - Specialty Report Received Specialty Diagnoses / Procedures Referred By Contac t Referred To Contact Diagnoses of unknown anatomic location Procedures US OB FIRST TRIMESTER (LESS THAN 14 WEEKS) TRANSVAGINAL Charu Flynn MD [address] [place] [address] Level [address] [place] [address] Referral ID Status Reason Start Date Expiration Date V isits Requested Visits Authorized [id number] Specialty Report Received 09/03/2019 1 1 Reason for Visit * Reason Onset Date Comments Results 09/03/2019 Encounter Details Date Type Department Care Team (Late st Contact Info) Description 09/03/2019 Telephone [facility] Women's Services [address] [address] Susana Tomlinson, MARCELO Results Social [...] Tomlinson RN - 09/03/2019 1218 EDT Cristy [facility]: asking if blood work results are back. [...] using Lysol on everything & using hand improvement analyst. Advsied should put on a mask when arrives, tell screeners about cough, & will be directed appropriate. We will call her if there are any other directions. documented in this encounter Plan of Treatment Upcoming Encounters Date Type Department Care Team (Late st Contact Info) Description 02/21/2024 9:45 EDT Office Visit [facility] Adult Primary Care - [address] [phone] Carrington Calderon MD 1 [facility] 1 [place] [phone] 02/27/2024 8:30 EDT Telemedicine [facility] Sleep Program - [address] [address] Sayra Dwight [address] [place] [address] [phone] 02/29/2024 10:30 EDT Appointment [facility] Radiology Nuclear Medicine and PET [address] 545011 02/29/2024 14:30 EDT Appointment [facility] Radiology Nuclear Medicine and PET [address] [phone] 03/01/2024 8:00 EDT Appointment [facility] Radiology Nuclear Medicine and PET [address] [phone] 03/01/2024 9:30 EDT Appointment [facility] Radiology Nuclear Medicine and PET [address] [phone] documented as of this encounter Results * [...] Sufficient. Impression 1st Trimester OB scan ,transvaginal +[id number] Single intrauterine gestational sac and yolk sac. [...] GA 6 w + 2 d Assigned IVNA: 04/28/2020 Assessment Gestational sac: Visualized Location: Intrauterine [...] Sufficient. Impression 1st Trimester OB scan ,transvaginal +[id number] Single intrauterine gestational sac and yolk sac. [...] incidental documented in this encounter Care Teams Commuter Train Operator Relationship Specialty Start Date End Date None, Provider PCP - General 06/18/19 11/25/19 documented as of this encounter
--- OUTSIDE RECORDS SUMMARY | 2024-01-02 06:20 | XMS_ITS | Encounter Summary ---
Author Organization [facility] Address [address] [place] [address] Care Team Providers Care Representative Government Relations Name Role Phone None, Provider Primary Care Provider Unavailabl e Reason for Visit * Reason Onset Date Comments Vaginal Bleeding 10/11/2019 Encounter Details Date Type Department Care Team (Late st Contact Info) Description 10/11/[address] [facility] OBGYN [address] [place], [place] [phone] Mayra Lund MD [address] [place] [address] Vaginal Bleeding Social History Tobacco [...] Lund MD PhD M Fellow, PGY5 Pager #[phone] documented in this encounter Plan of Treatment Upcoming Encounters Date Type Department Care Team (Late st Contact Info) Description 02/21/2024 9:45 EDT Office Visit [facility] Adult Primary Care - [address] 859461 Carrington Calderon MD [address] [phone] 02/27/2024 8:30 EDT Telemedicine [facility] Sleep Program - [address] 550881 Dwight Colbert [address] [place], [place] 648491 02/29/2024 10:30 EDT Appointment [facility] Radiology Nuclear Medicine and PET - [address] [address] 02/29/2024 14:30 EDT Appointment [facility] Radiology Nuclear Medicine and PET [address] [address] 03/01/2024 8:00 EDT Appointment [facility] Radiology Nuclear Medicine and PET [address] [address] 03/01/2024 9:30 EDT Appointment [facility] Radiology Nuclear Medicine and PET [address] [address] documented as of this encounter Visit Diagnoses Not on filedocumented in this encounter Care Teams Representative Government Relations Relationship Specialty Start Date End Date None, Provider PCP - General 06/18/19 11/25/19 documented as of this encounter
--- OUTSIDE RECORDS SUMMARY | 2024-01-02 06:20 | XMS_ITS | Encounter Summary ---
Author Organization [facility] Address [address] [place] [address] Care Team Providers Care Wastewater Treatment Plant Supervisor Name Role Phone None, Provider Primary Care Provider Unavailabl e Reason for Visit * Reason Onset Date Comments Other 10/15/2019 Encounter Details Date Type Department Care Team (Late st Contact Info) Description 10/15/2019 Telephone [facility] Women's Services - [address] [address] Jordyn Wolfe, MARCELO Other Social History Tobacco [...] [facility] Adult Primary Care - [address] [phone] Carrington Calderon MD [address] [address] 02/27/2024 8:30 EDT Telemedicine [facility] Sleep Program - [address] 308691 Dwight Colbert [address] [place] [address] 02/29/2024 10:30 EDT Appointment [facility] Radiology Nuclear Medicine and PET - [address] 547171 02/29/2024 14:30 EDT Appointment [facility] Radiology Nuclear Medicine and PET - [facility] [address] [place], [place] 135951 03/01/2024 8:00 EDT Appointment [facility] Radiology Nuclear Medicine and PET [address] 413491 03/01/2024 9:30 EDT Appointment [facility] Radiology Nuclear Medicine and PET [address] [phone] documented as of this encounter Visit Diagnoses Not on filedocumented in this encounter Care Teams Wastewater Treatment Plant Supervisor Relationship Specialty Start Date End Date None, Provider PCP - General 06/18/19 11/25/19 documented as of this encounter
--- OUTSIDE RECORDS SUMMARY | 2024-01-02 06:21 | XMS_ITS | Encounter Summary ---
Author Organization [facility] Address [address] [place] [address] Care Team Providers Care Guide Dog Instructor Name Role Phone Benita Shafer DEVELOPMENT AND HOUSING DIRECTOR Primary Care Provider [phone] Reason for Visit * Reason Onset Date Comments Results 12/04/2018 Encounter Details Date Type Department Care Team (Late st Contact Info) Description 12/04/2018 Telephone [facility] Women's Services - [address] [address] Lisseth Valdez, MARCELO Results Social History Tobacco [...] Notes * Telephone Encounter - Lisseth Briscoe, RN - 12/04/2018 1415 EDT LVM for Cristy [...] w/ dr beckwith. Please call us at [phone]. LVM for Cristy stating this is the [...] [facility] Adult Primary Care - [address] [phone] Carrington Calderon MD [address] [phone] 02/27/2024 8:30 EDT Telemedicine [facility] Sleep Program - [address] 482161 Dwight Colbert [address] [place] [address] 776641 02/29/2024 10:30 EDT Appointment [facility] Radiology Nuclear Medicine and PET - [address] [phone] 02/29/2024 14:30 EDT Appointment [facility] Radiology Nuclear Medicine and PET - [address] [phone] 03/01/2024 8:00 EDT Appointment [facility] Radiology Nuclear Medicine and PET [address] [address] 03/01/2024 9:30 EDT Appointment [facility] Radiology Nuclear Medicine and PET [address] [phone] documented as of this encounter Visit Diagnoses Not on filedocumented in this encounter Care Teams Guide Dog Instructor Relationship Specialty Start Date End Date Benita Shafer NP PCP - General 08/22/18 06/17/19 documented as of this encounter
--- OUTSIDE RECORDS SUMMARY | 2024-01-02 06:21 | XMS_ITS | Encounter Summary ---
Author Organization [facility] Address [address] [place] [address] Care Team Providers Care Housing Management Representative Name Role Phone Benita Shafer GUSTAVO Primary Care Provider [phone] Encounter Details Date Type Department Care Team (Late st Contact Info) Description 10/26/2018 11:36 EDT - 10/26/2018 23:59 EDT Hospital Encounter [facility] [address] [place] [address] Charu Flynn MD 111 [facility], Level 4 [place] [address] Discharge Disposition: Home or Self [...] or Self Penitentiary documented in this encounter Plan of Treatment Upcoming Encounters Date Type Department Care Team (Late st Contact Info) Description 02/21/2024 9:45 EDT Office Visit [facility] Adult Primary Care - [address] 613321 Carrington Calderon MD [address] [phone] 02/27/2024 8:30 EDT Telemedicine [facility] Sleep Program - [address] [phone] Dwight Colbert [address] [place] [address] [phone] 02/29/2024 10:30 EDT Appointment [facility] Radiology Nuclear Medicine and PET - [address] [phone] 02/29/2024 14:30 EDT Appointment [facility] Radiology Nuclear Medicine and PET - [address] [phone] 03/01/2024 8:00 EDT Appointment [facility] Radiology Nuclear Medicine and PET - [address] [phone] 03/01/2024 9:30 EDT Appointment [facility] Radiology Nuclear Medicine and PET - [address] 102901 documented as of this encounter Visit Diagnoses Not on filedocumented in this encounter Care Teams Housing Management Representative Relationship Specialty Start Date End Date Benita Shafer NP PCP - General 08/22/18 06/17/19 documented as of this encounter
--- OUTSIDE RECORDS SUMMARY | 2024-01-02 06:21 | XMS_ITS | Encounter Summary ---
Author Organization [facility] Address [address] [place] [address] Care Team Providers Care Maintenance Advisor Name Role Phone Benita Shafer [employer] Primary Care Provider [phone] Encounter Details Date Type Department Care Team (Late st Contact Info) Description 11/03/2018 Phlebotomy Only [facility] - [address] [phone] Hand Router Operator, Outpatient Recurrent loss; 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 [...] - [facility] - [address] [phone] Carrington Claderon MD 1 [facility] Level 1 [place] [phone] 02/27/2024 8:30 EDT Telemedicine [facility] Sleep Program - [address] [place] [address] [place] [address] Dwight Colbert [address] [place], [place] [address] 02/29/2024 10:30 EDT Appointment [facility] Radiology Nuclear Medicine and PET - [address] [address] 02/29/2024 14:30 EDT Appointment [facility] Radiology Nuclear Medicine and PET - [address] 236121 03/01/2024 8:00 EDT Appointment [facility] Radiology Nuclear Medicine and PET - [address] 868151 03/01/2024 9:30 EDT Appointment [facility] Radiology Nuclear Medicine and PET [address] [address] documented as of this encounter Procedures Procedure Name Priority Date/Time Associated Diagnosis Comments THYROID CASCADE Routine 11/03/2018 10:47 EDT Recurrent loss PROLACTIN Routine 11/03/2018 10:47 EDT Recurrent loss HEMOGLOBIN A1C Routine 11/03/2018 10:47 EDT Recurrent loss documented in this encounter Results * HEMOGLOBIN A1C (11/03/2018 10:47 EDT) Hemoglobin A1C 10.9 % 11/03/2018 15:29 EDT [facility] Comment: Reference Range: <5.7% Normal 5.7-6.4% Prediabetes =>6.5% Diagnostic for diabetes (if confirmed) Goals for glycemic control in diabetes ADA 2017 For non adults with diabetes: ?? Target <7.0% For children and adolescents with type 1 diabetes: ?? Target <7.5% More or less stringent targets may be appropriate for individual patients. Est Avg Glucose 266 mg/dl 9 15:29 EDT [facility] Comment: eAG represents the A1c result expressed as average glucose in mg/dl. Blood specimen (specimen) BLOOD SPECIMEN / Unknown 11/03/2018 10:47 EDT 11/03/2018 11:17 EDT Jonas Ojeda MD CHEMISTRY & BLOOD GA S ORDERABLES Performing Organization Address [facility] Co de Phone Number [facility] [address] [place] [address] * PROLACTIN (11/03/2018 10:47 EDT) Prolactin 5.4 ng/ml 11/03/2018 13:09 EDT [facility] Comment: Non-: 2.8-29.2 : 9.7-208.5 Post Menopausal: 1.8-20.3 Blood specimen (specimen) BLOOD SPECIMEN / Unknown 11/03/2018 10:47 EDT 11/03/2018 11:17 EDT Jonas Ojeda MD CHEMISTRY & BLOOD GA S ORDERABLES Performing Organization Address [facility] Co de Phone Number [facility] [address] [place] [address] * (ABNORMAL) THYROID CASCADE (11/03/2018 10:47 EDT) TSH 0.40(L) 0.47 - 4.68 uIU/ml 11/03/2018 12:19 EDT [facility] Comment: TSH cascade is not recommended for patients in which pituitary or hypothalamic disorders are suspected. The results of this assay can be falsely lowered due to the consumption of Biotin. Blood specimen (specimen) BLOOD SPECIMEN / Unknown 11/03/2018 10:47 EDT 11/03/2018 11:17 EDT Jonas Ojeda MD CHEMISTRY & BLOOD GA S ORDERABLES Performing Organization Address [facility] Co de Phone Number [facility] [address] [place] [address] documented in this encounter Visit Diagnoses Diagnosis Recurrent loss 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 documented in this encounter Care Teams Maintenance Advisor Relationship Specialty Start Date End Date Benita Shafer NP PCP - General 08/22/18 06/17/19 documented as of this encounter
--- OUTSIDE RECORDS SUMMARY | 2024-01-02 06:21 | XMS_ITS | Encounter Summary ---
Author Organization [facility] Address [address] [place] [address] Care Team Providers Care Visual C Developer Name Role Phone Benita Shafer [employer]OCK [employer] FLOOR LAYER Primary Care Provider [phone] Encounter Details Date Type Department Care Team (Late Contact Info) Description 11/01/2018 Orders Only [facility] Women's Services - [facility] [address] [place] [address] Lara Serrano RN [address] [place] [address] Right tubal without intrauterine (Primary Dx) Social [...] [facility] - [address] 554411 Carrington Calderon MD [address] [phone] 02/27/2024 8:30 EDT Telemedicine [facility] Sleep Program - [address] [phone] Dwight Colbert [address] [place] [phone] 02/29/2024 10:30 EDT Appointment [facility] Radiology Nuclear Medicine and PET [address] 194121 02/29/2024 14:30 EDT Appointment [facility] Radiology Nuclear Medicine and PET [address] [id number] 03/01/2024 8:00 EDT Appointment [facility] Radiology Nuclear Medicine and PET [address] [phone] 03/01/2024 9:30 EDT Appointment [facility] Radiology Nuclear Medicine and PET [address] [phone] documented as of this encounter Visit Diagnoses Diagnosis Right tubal without intrauterine - Primary documented in this encounter Care Teams Visual C Developer Relationship Specialty Start Date End Date Benita Shafer NP PCP - General 08/22/18 06/17/19 documented as of this encounter
--- OUTSIDE RECORDS SUMMARY | 2024-01-02 06:21 | XMS_ITS | Encounter Summary ---
Author Organization [facility] Address [address] [place] [address] Care Team Providers Care Cuffer Name Role Phone Benita Shafer SUPERVISOR LACE TEARING Primary Care Provider [phone] Encounter Details Date Type Department Care Team (Late st Contact Info) Description 10/26/2018 Phlebotomy Only [facility] - [address] [address] Hotel Recreational Facilities Manager, Outpatient 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 (Primary Dx) [...] [facility] - [address] [address] Carrington Calderon MD 1 [facility] Level 1 [place] [address] 02/27/2024 8:30 EDT Telemedicine [facility] Sleep Program - [address] [place] 1 [place] [address] Dwight Colbert [address] [place] [address] 02/29/2024 10:30 EDT Appointment [facility] Radiology Nuclear Medicine and PET - [address] [address] 02/29/2024 14:30 EDT Appointment [facility] Radiology Nuclear Medicine and PET - [address] [address] 03/01/2024 8:00 EDT Appointment [facility] Radiology Nuclear Medicine and PET [address] [id number] 03/01/2024 9:30 EDT Appointment [facility] Radiology Nuclear Medicine and PET [address] [address] documented as of this encounter Procedures Procedure [...] 10 - 26 mg/dl 10/26/2018 13:09 EDT [facility] Blood specimen (specimen) BLOOD SPECIMEN / Unknown 10/26/2018 12:28 EDT 10/26/2018 12:42 EDT Charu Flynn MD CHEMISTRY & BLOO D GAS ORDERABLES Performing Organization Address City/[facility] [address]/ZIP Co de Phone Number [facility] [address] [place] [address] * (ABNORMAL) CREATININE (10/26/2018 12:28 EDT) Creatinine 0.44(L) 0.52 - 1.04 mg/dl 10/26/2018 13:09 EDT [facility] GFR, Calculated 133 >60 ml/min/1.7 3m2 10/26/2018 13:09 EDT [facility] Comment: eGFR calculated using CKD-EPI equation for non Americans. Multiply eGFR by 1.16 for Americans. Blood specimen (specimen) BLOOD SPECIMEN / Unknown 10/26/2018 12:28 EDT 10/26/2018 12:42 EDT Charu Flynn MD CHEMISTRY & BLOO D GAS ORDERABLES Performing Organization Address City/[facility] [address]/ZIP Co de Phone Number [facility] [address] [place] [address] * ALT (10/26/2018 12:28 EDT) ALT 22 <53 U/L 10/26/2018 13:09 EDT [facility] Blood specimen (specimen) BLOOD SPECIMEN / Unknown 10/26/2018 12:28 EDT 10/26/2018 12:42 EDT Charu Flynn MD CHEMISTRY & BLOO D GAS ORDERABLES Performing Organization Address City/[facility] [address]/ZIP Co de Phone Number [facility] [address] [place] [address] * (ABNORMAL) AST (10/26/2018 12:28 EDT) AST 14(L) 15 - 46 U/L 10/26/2018 13:09 EDT [facility] Blood specimen (specimen) BLOOD SPECIMEN / Unknown 10/26/2018 12:28 EDT 10/26/2018 12:42 EDT Charu Flynn MD CHEMISTRY & BLOO D GAS ORDERABLES [facility] [address] [place] [address] * COMPLETE BLOOD COUNT (10/26/2018 12:28 EDT) WBC 11.89 4.0 - 12.4 K/cmm 10/26/2018 13:06 T [facility] RBC 4.82 3.86 - 5.04 M/cmm 10/26/2018 13:06 [facility] Hemoglobin 15.0 11.6 - 15.2 gm/dl 10/26/2018 13:06 [facility] HCT 42.5 34.9 - 44.4 % 10/26/2018 13:06 [facility] MCV 88 81 - 98 fl 10/26/2018 13:06 T [facility] MCH 31.1 26.7 - 33.3 pg 10/26/2018 13:06 [facility] MCHC 35.3 32.1 - 35.9 gm/dl 10/26/2018 13:06 [facility] RDW-CV 11.9 <14.7 % 10/26/2018 13:06 [facility] RDW-SD 38.2 <50.4 fl 10/26/2018 13:06 [facility] PLT 358 141 - 377 K/cmm 10/26/2018 13:06 [facility] MPV 10.0 9.5 - 12.7 fl 10/26/2018 13:06 [facility] Blood specimen (specimen) BLOOD SPECIMEN / Unknown 10/26/2018 12:28 EDT 10/26/2018 12:42 EDT Charu Flynn MD HEMATOLOGY & PF4 ORDERABLES Performing Organization Address City/[facility] [address]/ZIP Co de Phone Number [facility] [address] [place] [address] documented in this encounter Visit Diagnoses Diagnosis 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 - Primary documented in this encounter Care Teams Cuffer Relationship Specialty Start Date End Date Benita Shafer NP PCP - General 08/22/18 06/17/19 documented as of this encounter
--- OUTSIDE RECORDS SUMMARY | 2024-01-02 06:21 | XMS_ITS | Encounter Summary ---
Author Organization [facility] Address [address] [place] [address] Care Team Providers Care Dietician Name Role Phone Benita Shafer GUSTAVO Primary Care Provider [phone] Encounter Details Date Type Department Care Team (Late st Contact Info) Description 11/10/2018 Phlebotomy Only [address] [address] Unloader Operator, Outpatient Ectopic without intrauterine , unspecified location [...] Visit [facility] Adult Primary Care - [address] [phone] Carrington Calderon MD 1 [facility] 1 [place] [address] 02/27/2024 8:30 EDT Telemedicine [facility] Sleep Program - [address] [phone] Dwight Colbert [address] [place] [phone] 02/29/2024 10:30 EDT Appointment [facility] Radiology Nuclear Medicine and [address] [phone] 02/29/2024 14:30 EDT Appointment [facility] Radiology Nuclear Medicine and PET [address] [phone] 03/01/2024 8:00 EDT Appointment [facility] Radiology Nuclear Medicine and PET [address] [phone] 03/01/2024 9:30 EDT Appointment [facility] Radiology Nuclear [facility] and [address] [phone] documented as of this encounter Procedures Procedure Name Priority Date/Time Associated Diagnosis Comments QUANT BETA HCG, Routine 11/10/2018 8:52 EDT Ectopic without intrauterine , unspecified location documented in this encounter Results * (ABNORMAL) QUANT BETA HCG, (11/10/2018 8:52 EDT) Quant Beta HCG, Preg 1,117(H) <5 mIU/ml 11/10/2018 9:47 EDT [facility] Comment: Reference Range: Negative = <5 Indeterminate = 5-25 recommend repeat in 48 hours. Positive = >25 The results of this assay can be falsely lowered due to the consumption of Biotin. Blood specimen (specimen) BLOOD SPECIMEN / Unknown 11/10/2018 8:52 EDT 11/10/2018 9:00 EDT Charu Flynn MD CHEMISTRY & BLOO D GAS ORDERABLES [facility] [address] [place] [address] documented in this encounter Visit Diagnoses Diagnosis Ectopic without intrauterine , unspecified location- Primary documented in this encounter Care Teams Dietician Relationship Specialty Start Date End Date Benita Shafer NP PCP - General 08/22/18 06/17/19 documented as of this encounter
--- OUTSIDE RECORDS SUMMARY | 2024-01-02 06:21 | XMS_ITS | Encounter Summary ---
Author Organization [facility] Address [address] [place] [address] Care Team Providers Care Field Pipelines Supervisor Name Role Phone Benita Shafer GUSTAVO Primary Care Provider Reason for Referral * Consult (3 - 10 Business Days) - Closed Specialty Diagnoses / Procedures [facility] To Contact [facility] / Obstetrics & Gynecology Diagnoses Ectopic , unspecified location, unspecified whether intrauterine present History of recurrent miscarriages Charu Flynn MD [address] [facility] 4 [place] [address] [facility] [address] [place] [address] Referral ID Status Reason Start Date Expiration Date V isits Requested Visits Authorized [id number] Closed Specialty Services Required 11/10/2018 1 1 [...] please call the Community Health Team at [phone]. Reason for Visit * Reason Onset Date Comments Labs Only 11/10/2018 Encounter Details Date Type Department Care Team (Late st Contact Info) Description 11/10/2018 Telephone [facility] Women's Services [address] [address] Susana Busby, RN Labs Only Social History [...] 0850: Spoke with Cristy, she went to [facility] lab last night but it was too late to get blood drawn, currently at [facility] lab. When asked how she is doing [...] are available. She prefers to go to [facility] for blood work, but may go to [facility] as is closer. I told her if [facility] registration says they do not have an order tell them to call the lab, as they can see [facility] Prism order. When asked if she has [...] [facility] - [address] 315801 Carrington Calderon MD [address] [phone] 02/27/2024 8:30 EDT Telemedicine [facility] Sleep Program - [address] 829881 Dwight Colbert [address] [place] [address] [phone] 02/29/2024 10:30 EDT Appointment [facility] Radiology Nuclear Medicine and PET - [address] [id number] 02/29/2024 14:30 EDT Appointment [facility] Radiology Nuclear Medicine and PET - [address] 397881 03/01/2024 8:00 EDT Appointment [facility] Radiology Nuclear Medicine and PET [address] 487271 [phone] 03/01/2024 9:30 EDT Appointment [facility] Radiology Nuclear Medicine and PET - [address] [address] Scheduled Referrals Name Type Priority Associated Diagnoses Orde r Schedule AMB CONS/FOLLOW UP [facility] TEAM Outpatient Referral Routine Ectopic , unspecified location, unspecified whether intrauterine present History of recurrent miscarriages Ordered: 11/10/2018 documented as of this encounter Visit Diagnoses Diagnosis Ectopic , unspecified location, unspecified whether intrauterine present- Primary History of recurrent miscarriages documented in this encounter Care Teams Field Pipelines Supervisor Relationship Specialty Start Date End Date Benita Shafer NP PCP - General 08/22/18 06/17/19 documented as of this encounter
--- OUTSIDE RECORDS SUMMARY | 2024-01-02 06:21 | XMS_ITS | Encounter Summary ---
Author Organization [facility] Address [address] [place] [address] Care Team Providers Care Ceiling Insulation Blower Name Role Phone SoniBenita GUSTAVO Primary Care Provider [phone] Reason for Visit * Reason Comments Diabetes * Consult (3 - 10 Business Days) - Specialty Report Received Specialty Diagnoses / Procedures Referred By Kit goode Referred To Contact Endocrinology Diagnoses Poorly controlled type 2 diabetes mellitus ([facility]) Recurrent loss Jonas Ojeda MD [address] [place] [address] [phone] [facility] Endocrinology [address] [place] [address] Referral ID Status Reason Start Date Expiration Date Visits Requested Visits Authorized [id number] Specialty Report Received Specialty Services Required 11/03/2018 1 1 Encounter Details Date Type Department Care Team (Latest Contact Info) Description 11/10/2018 9:20 EDT Office Visit [facility] Endocrinology - [facility] [address] [place] [address] Sara Zafar NP [address] [place] [address] [address] [place] [address] Type 2 diabetes mellitus with hyperglycemia, with long-term current use of insulin ([facility]) (Primary Dx) Social History Tobacco Use Types [...] calL with med adjustments RD referral in [place] Take food records BS pre meal 80-120 [...] trimester miscarriages, most recently terminated a at [facility] 11/01/2018. Recurrent loss attributed to to poorly controlled type 2 diabetes in conjunction with tobacco dependence. She saw ASSURANCE OFFICER on 11/03/2018, and was advised to get [...] her PCPs office (Benita Shafer, GUSTAVO - [place]) approximately 1 to 2 months ago . [...] 4 siblings, knows about 2, noDM. 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 Very [...] skin at bedtime. ??? lancets One Touch [employer] or other brand compatible with lancing device and covered by patient'sinsurance. (Patient not taking: Reported on 11/10/2018) 100 Each 2 ??? lidocaine 5 % (LIDODERM) 5 % patch To area of pain, apply for 12 hours on, then 12 hours off. Some insurance companies do not cover this medication. There is an jjvs-jqi-wzvrwzc cream or an yagy-gle-gdnthsr patch with a lower concentration that is [...] to work closely with anRD either at [facility] or here to learn CHO ect, test [...] and requirements I will calL with med [facility] RD referral in [place] Take food records BS pre meal 80-120 [...] [facility] Adult Primary Care - [address] 1620[address] Carrington Calderon MD [address] [phone] 02/27/2024 8:30 EDT Telemedicine [facility] Sleep Program - [address] [phone] Dwight Colbert [address] [place] [address] [phone] 02/29/2024 10:30 EDT Appointment [facility] Radiology Nuclear Medicine and PET - [address] [phone] 02/29/2024 14:30 EDT Appointment [facility] Radiology Nuclear Medicine and PET - [address] [address] 03/01/2024 8:00 EDT Appointment [facility] Radiology Nuclear Medicine and PET [address] [address] 03/01/2024 9:30 EDT Appointment [facility] Radiology Nuclear Medicine and PET [address] [address] documented as of this encounter Visit Diagnoses Diagnosis Type 2 diabetes mellitus with hyperglycemia, with long-term current use of insulin ([facility])- Primary documented in this encounter Care Teams Ceiling Insulation Blower Relationship Specialty Start Date End Date Benita Shafer NP PCP - General 08/22/18 06/17/19 documented as of this encounter
--- OUTSIDE RECORDS SUMMARY | 2024-01-02 06:21 | XMS_ITS | Encounter Summary ---
Author Organization [facility] Address [address] [place] [address] Care Team Providers Care 3D Technologist Name Role Phone Benita Shafer SAFE [employer] VAULT INSTALLER Primary Care Provider [phone] Reason for Visit * Reason Onset Date Comments Results 12/04/2018 Encounter Details Date Type Department Care Team (Late st Contact Info) Description 12/04/2018 Orders Only [facility] Women's Services - [address] [address] Lisseth Valdez RN Social History Tobacco Use [...] - 12/04/2018 1407 EDT Received Fax from [facility], results entered, will have faxed document scanned. documented in this encounter Plan of Treatment Upcoming Encounters Date Type Department Care Team (Late st Contact Info) Description 02/21/2024 9:45 EDT Office Visit [facility] Adult Primary Care - [address] [phone] Carrington Calderon MD [address] [phone] 02/27/2024 8:30 EDT Telemedicine [facility] Sleep Program - [address] 208271 Dwight Colbert [address] [place] [address] [phone] 02/29/2024 10:30 EDT Appointment [facility] Radiology Nuclear Medicine and [address] [phone] 02/29/2024 14:30 EDT Appointment [facility] Radiology Nuclear Medicine and PET [address] [phone] 03/01/2024 8:00 EDT Appointment [facility] Radiology Nuclear Medicine and PET [address] [phone] 03/01/2024 9:30 EDT Appointment [facility] Radiology Nuclear Medicine and PET [address] [phone] documented as of this encounter Procedures Procedure Name Priority Date/Time Associated Diagnosis Comments QUANT BETA HCG, Routine 12/03/2018 documented in this encounter Results * QUANT BETA HCG, (12/03/2018) HCG, External 41.94 mIU/ml [facility] Comment:non- <5 Blood specimen (specimen) 12/03/2018 Historical Provider CHEMISTRY & BLOOD GAS ORDERABLES [facility] documented in this encounter Visit Diagnoses Not on filedocumented in this encounter Care Teams 3D Technologist Relationship Specialty Start Date End Date Benita Shafer NP PCP - General 08/22/18 06/17/19 documented as of this encounter
--- OUTSIDE RECORDS SUMMARY | 2024-01-02 06:21 | XMS_ITS | Encounter Summary ---
Author Organization [facility] Address [address] [place] [address] Care Team Providers Care Tow Operator Name Role Phone Benita Shafer AVIONICS MECHANIC Primary Care Provider [phone] Encounter Details Date Type Department Care Team (Late st Contact Info) Description 12/11/2018 Orders Only [facility] Women's Services - [address] [phone] Charu Flynn MD 111 [facility], Level 4 [place] [address] Social History Tobacco Use Types [...] [facility] - [address] [phone] Carrington Calderon MD [address] [phone] 02/27/2024 8:30 EDT Telemedicine [facility] Sleep Program - [address] [phone] Dwight Colbert [address] [place] [address]281 02/29/2024 10:30 EDT Appointment [facility] Radiology Nuclear Medicine and PET - [address] [phone] 02/29/2024 14:30 EDT Appointment [facility] Radiology Nuclear Medicine and [address] [phone] 03/01/2024 8:00 EDT Appointment [facility] Radiology Nuclear Medicine and PET [address] [phone] 03/01/2024 9:30 EDT Appointment [facility] Radiology Nuclear Medicine and PET [address] [phone] documented as of this encounter Visit Diagnoses Not on filedocumented in this encounter Care Teams Tow Operator Relationship Specialty Start Date End Date Benita Shafer NP PCP - General 08/22/18 06/17/19 documented as of this encounter
--- OUTSIDE RECORDS SUMMARY | 2024-01-02 06:21 | XMS_ITS | Encounter Summary ---
Author Organization [facility] Address [address] [place] [address] Care Team Providers Care Ged Instructor Name Role Phone Benita Shafer RETAIL EVENT COORDINATOR Primary Care Provider [phone] Reason for Visit * Reason Onset Date Comments Labs Only 11/17/2018 Encounter Details Date Type Department Care Team (Late st Contact Info) Description 11/17/2018 Telephone [facility] Women's Services - [address] [address] Jordyn Wolfe, RN Labs Only Social History [...] 18. Patient has not gone to either [facility] lab or [facility] lab. * Telephone Encounter - Jordyn [...] PM. Patient plans to go to the [facility] lab tomorrow morning around 9 AM. She [...] [facility] Adult Primary Care - [address] [address] Carrington Calderon MD 1 [facility] Level 1 [place] [phone] 02/27/2024 8:30 EDT Telemedicine [facility] Sleep Program - [address] [place] [address] Sayra Dwight [address] [place] [address] 02/29/2024 10:30 EDT Appointment [facility] Radiology Nuclear Medicine and PET - [address] [address] 02/29/2024 14:30 EDT Appointment [facility] Radiology Nuclear Medicine and PET [address] 066451 03/01/2024 8:00 EDT Appointment [facility] Radiology Nuclear Medicine and PET [address] [phone] 03/01/2024 9:30 EDT Appointment [facility] Radiology Nuclear Medicine and PET - [address] [address] documented as of this encounter Visit Diagnoses Not on filedocumented in this encounter Care Teams Ged Instructor Relationship Specialty Start Date End Date Benita Shafer NP PCP - General 08/22/18 06/17/19 documented as of this encounter
--- OUTSIDE RECORDS SUMMARY | 2024-01-02 06:21 | XMS_ITS | Encounter Summary ---
Author Organization 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 Type 2 diabetes mellitus without complication, with long-term current use of insulin ([facility]) Abnormal human chorionic gonadotropin (hCG) Charu Flynn MD 111 [facility] 4 [place] [address] [facility] Ep4 Ob/Mfm [address] [place] [address] Referral ID Status Reason Start Date Expiration Date V isits Requested Visits Authorized [id number] Closed Specialty Services Required 10/26/2018 1 1 [...] complication, with long-term current use of insulin ([facility]) Abnormal human chorionic gonadotropin (hCG) 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 Charu Flynn MD 111 [facility], Level 4 [place] [address] [facility] Mp4 Edis [address] [place] [address] Referral ID Status Reason Start Date Expiration Date Visits Requested Visits Authorized [id number] Specialty Report Received Specialty Services Required 10/26/2018 [...] Description 10/26/2018 11:00 EDT Nurse Only [facility] Women's Services - [address] [address] Unknown, Provider, Nurse, Obgyn Injections 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 She will go tothe lab [...] loss, as well as lab hours and MERCURY CRACKING TESTER triage phone number. Method: Handout and Verbal [facility] - [address] 347871 Carrington Calderon MD [address] [place] [address] 1 [place] [phone] 02/27/2024 8:30 EDT Telemedicine [facility] Sleep Program - [address] [address] Dwight oClbert [address] [place], [place] 137971 02/29/2024 10:[address] [facility] Radiology Nuclear Medicine and PET - [address] 295321 02/29/2024 14:[address] [facility] Radiology Nuclear Medicine and PET - [address] [phone] 03/01/2024 8:[address] [facility] Radiology Nuclear Medicine and PET - [address] [phone] 03/01/2024 9:[address] 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 Positive = >25 The results of this assay can be falsely lowered due to the consumption of Biotin. Blood specimen (specimen) BLOOD SPECIMEN / Unknown 10/29/2018 9:20 EDT 10/29/2018 9:38 EDT Charu Flynn MD CHEMISTRY & BLOO D GAS ORDERABLES Performing Organization Address City/[facility]/ZIP Co de Phone Number [facility] [address] [place] [address] * COMPLETE BLOOD COUNT (10/26/2018 12:28 EDT) WBC 11.89 4.0 - 12.4 K/cmm 10/26/2018 13:06 EDT [facility] RBC 4.82 3.86 - 5.04 M/cmm 10/26/2018 13:06 T [facility] Hemoglobin 15.0 11.6 - 15.2 gm/dl 10/26/2018 13:06 T [facility] HCT 42.5 34.9 - 44.4 % 10/26/2018 13:06 [facility] MCV 88 81 - 98 fl 10/26/2018 13:06 T [facility] MCH 31.1 26.7 - 33.3 pg 10/26/2018 13:06 T [facility] MCHC 35.3 32.1 - 35.9 gm/dl 10/26/2018 13:06 [facility] RDW-CV 11.9 <14.7 % 10/26/2018 13:06 [facility] RDW-SD 38.2 <50.4 fl 10/26/2018 13:06 [facility] PLT 358 141 - 377 K/cmm 10/26/2018 13:06 T [facility] MPV 10.0 9.5 - 12.7 fl 10/26/2018 13:06 [facility] Blood specimen (specimen) BLOOD SPECIMEN / Unknown 10/26/2018 12:28 EDT 10/26/2018 12:42 EDT Charu Flynn MD HEMATOLOGY & PF4 ORDERABLES Performing Organization Address City/[facility]/ZIP Co de Phone Number [facility] [address] [place] [address] * (ABNORMAL) AST (10/26/2018 12:28 EDT) AST 14(L) 15 - 46 U/L 10/26/2018 13:09 EDT [facility] Blood specimen (specimen) BLOOD SPECIMEN / Unknown 10/26/2018 12:28 EDT 10/26/2018 12:42 EDT Charu Flynn MD CHEMISTRY & BLOO D GAS ORDERABLES Performing Organization Address [facility] Co de Phone Number [facility] [address] [place] [address] * ALT (10/26/2018 12:28 EDT) ALT 22 <53 U/L 10/26/2018 13:09 EDT [facility] Blood specimen (specimen) BLOOD SPECIMEN / Unknown 10/26/2018 12:28 EDT 10/26/2018 12:42 EDT Charu Flynn MD CHEMISTRY & BLOO D GAS ORDERABLES Performing Organization Address [facility] de Phone Number [facility] [address] [place] [address] * (ABNORMAL) CREATININE (10/26/2018 12:28 EDT) Creatinine 0.44(L) 0.52 - 1.04 mg/dl 10/26/2018 13:09 EDT [facility] GFR, Calculated 133 >60 ml/min/1.7 3m2 10/26/2018 13:09 EDT [facility] Comment: eGFR calculated using CKD-EPI equation for non Americans. Multiply eGFR by 1.16 for Americans. Blood specimen (specimen) BLOOD SPECIMEN / Unknown 10/26/2018 12:28 EDT 10/26/2018 12:42 EDT Charu Flynn MD CHEMISTRY & BLOO D GAS ORDERABLES Performing Organization Address 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
--- OUTSIDE RECORDS SUMMARY | 2024-01-02 06:21 | XMS_ITS | Encounter Summary ---
Author Organization [facility] Address [address] [place] [address] Care Team Providers Care Liner Worker Name Role Phone Benita Shafer INTERVENTIONAL NURSE Primary Care Provider [phone] Reason for Visit * Reason Onset Date Comments Results 11/19/2018 Encounter Details Date Type Department Care Team (Late st Contact Info) Description 11/19/2018 Telephone [facility] OBGYN [address] [place] [address] Jackie Almeida MD Results Social History Tobacco [...] 11/19/2018 9:33 PGY-1 Obstetrics and Gynecology Pager #[phone] documented in this encounter Plan of Treatment Upcoming Encounters Date Type Department Care Team (Late st Contact Info) Description 02/21/2024 9:45 EDT Office Visit [facility] Adult Primary Care - [address] [phone] Carrington Calderon MD [address] [phone] 02/27/2024 8:30 EDT Telemedicine [facility] Sleep Program - [address] [phone] Dwight Colbert [address] [place] [address] [phone] 02/29/2024 10:30 EDT Appointment [facility] Radiology Nuclear Medicine and PET - [address] [phone] 02/29/2024 14:30 EDT Appointment [facility] Radiology Nuclear Medicine and PET - [address] 239451 03/01/2024 8:00 EDT Appointment [facility] Radiology Nuclear Medicine and PET - [address] [phone] 03/01/2024 9:30 EDT Appointment [facility] Radiology Nuclear Medicine and PET - [address] [address] documented as of this encounter Visit Diagnoses Not on filedocumented in this encounter Care Teams Liner Worker Relationship Specialty Start Date End Date Benita Shafer NP PCP - General 08/22/18 06/17/19 documented as of this encounter
--- OUTSIDE RECORDS SUMMARY | 2024-01-02 06:21 | XMS_ITS | Encounter Summary ---
Author Organization [facility] Address [address] [place] [address] Care Team Providers Care Proctologist Name Role Phone Benita Shafer FORENSIC BALLISTICS EXPERT Primary Care Provider [phone] Reason for Visit * Reason Onset Date Comments Results 11/21/2018 Encounter Details Date Type Department Care Team (Late st Contact Info) Description 11/21/[address] [facility] Women's Services - [address] [address] Jordyn Wolfe, MARCELO Results Social History Tobacco [...] Briscoe RN - 12/04/2018 1114 EDT Called [facility] lab to see if there were any recent betas, they state pt had been seen in there ED last night for unrelated problem. Asked them if they could run a Beta HCG off of what they collected lastnight 12/03. Called [facility] lab to see if they were able to run the HCG and asked them to fax results to [phone]. They state they will call and fax results. * Telephone Encounter - Lisseth Briscoe RN - 12/01/2018 1159 EDT Call to [facility] lab who states pt has not been [...] you of your upcoming appt 12/08 @ 0173 for a consult. If you are not able to get yourlab work done, or if you cannot keep that 12/08 appt please call [phone] to let us know. Attempted to reach pt 2 more times with no answer, no further msg left. * Telephone Encounter - Jordyn Wolfe RN - 11/30/2018 1031 EDT Call to [facility] lab. Patient has not gone [...] RN - 11/29/2018 0917 EDT Call to [facility] lab. Patient has not gone in for blood work yet. Will call patient. * Telephone Encounter - Jordyn Wolfe RN - 11/28/2018 1517 EDT Call to patient. Left message that the plan is for her to go to the lab for blood work( beta-hCG) retesting which she would be due today. Order is good at [facility] in [facility]. * Telephone Encounter - Jordyn Wolfe RN - 11/28/2018 1121 EDT Call to [facility] lab. Patient has not gone [...] off that day. Patient will go to [facility]. Patient with no questions at this time. documented in this encounter Plan of Treatment Upcoming Encounters Date Type Department Care Team (Late st Contact Info) Description 02/21/2024 9:[address] [facility] Adult Primary Care - [address] [address] Carrington Calderon MD [address] [phone] 02/27/2024 8:[address] [facility] Sleep Program - [address] [address] Dwight Colbert [address] [place] [address] 02/29/2024 10:30 EDT Appointment [facility] Radiology Nuclear Medicine and PET [address] 275131 02/29/2024 14:30 EDT Appointment [facility] Radiology Nuclear Medicine and PET [address] 926001 03/01/2024 8:00 EDT Appointment [facility] Radiology Nuclear Medicine and PET [address] [phone] 03/01/2024 9:30 EDT Appointment [facility] Radiology Nuclear Medicine and PET [address] [phone] documented as of this encounter Visit Diagnoses Not on filedocumented in this encounter Care Teams Proctologist Relationship Specialty Start Date End Date Benita Shafer NP PCP - General 08/22/18 06/17/19 documented as of this encounter
--- OUTSIDE RECORDS SUMMARY | 2024-01-02 06:21 | XMS_ITS | Encounter Summary ---
Author Organization [facility] Address [address] [place] [address] Care Team Providers Care Edi Developer Name Role Phone Benita Shafer PRICING INTERN Primary Care Provider [phone] Reason for Visit * Reason Onset Date Comments Other 11/21/2018 Encounter Details Date Type Department Care Team (Late st Contact Info) Description 11/21/2018 Telephone [facility] Women's Services - [address] [address] Jordyn Wolfe, MARCELO Other Social History Tobacco [...] to have her beta-hCG checked today at [facility]. I will ensure that the order is in place. documented in this encounter Plan of Treatment Upcoming Encounters Date Type Department Care Team (Late st Contact Info) Description 02/21/2024 9:45 EDT Office Visit [facility] Adult Primary Care - [address] 265521 Carrington Calderon MD [address] [phone] 02/27/2024 8:30 EDT Telemedicine [facility] Sleep Program - [address] [phone] Dwight Colbert [address] [place] [address] [phone] 02/29/2024 10:30 EDT Appointment [facility] Radiology Nuclear Medicine and PET - [address] 104461 02/29/2024 14:30 EDT Appointment [facility] Radiology Nuclear Medicine and PET - [address] [phone] 03/01/2024 8:00 EDT Appointment [facility] Radiology Nuclear Medicine and PET - [address] 510131 03/01/2024 9:30 EDT Appointment [facility] Radiology Nuclear Medicine and PET - [address] [phone] documented as of this encounter Visit Diagnoses Not on filedocumented in this encounter Care Teams Edi Developer Relationship Specialty Start Date End Date Benita Shafer NP PCP - General 08/22/18 06/17/19 documented as of this encounter
--- OUTSIDE RECORDS SUMMARY | 2024-01-02 06:21 | XMS_ITS | Encounter Summary ---
Author Organization [facility] Address [address] [place] [address] Care Team Providers Care Employment Coach Name Role Phone Benita Shaefr HOOP PUNCH OPERATOR HELPER Primary Care Provider [phone] Reason for Visit * Reason Onset Date Comments Labs Only 11/07/2018 Encounter Details Date Type Department Care Team (Late st Contact Info) Description 11/07/2018 Telephone [facility] Women's Services - [address] [address] Michelle Sanchez, MARCELO Labs Only Social History [...] Miscellaneous Notes * Telephone Encounter - Jordyn Wolfe, MARCELO - 11/08/2018 1910 EDT Call to patient. I spoke to patient. Patient states that she to go in today for blood work for beta-hCG. States that she will try to go in tomorrow. Patient given lab hours at [facility]. Lab opens up at 6. Patient [...] Wolfe RN - 11/08/2018 1901 EDT Call [facility] lab. Patient had not gone into the lab as of now which is 1900. * Telephone Encounter - Michelle Sanchez RN - 11/07/2018 0945 EDT TC to Cristy to remind to go to lab for HCG tomorrow (11/08). Pt states she will go to [facility] lab in evening; advised we will be [...] following MTX administration. Reiterated bleeding precautions and DEVELOPMENT ASSISTANT triage number if pt has questions/concerns. documented in this encounter Plan of Treatment Upcoming Encounters Date Type Department Care Team (Late st Contact Info) Description 02/21/2024 9:45 EDT Office Visit [facility] Adult Primary Care - [address] [phone] Carrington Calderon MD 1 [facility] 1 [place] [phone] 02/27/2024 8:30 EDT Telemedicine [facility] Sleep Program - [address] [phone] Dwight Colbert [address] [place] [address] 02/29/2024 10:30 EDT Appointment [facility] Radiology Nuclear Medicine and PET [address] [address] 02/29/2024 14:30 EDT Appointment [facility] Radiology Nuclear Medicine and PET [address] [phone] 03/01/2024 8:00 EDT Appointment [facility] Radiology Nuclear Medicine and PET [address] [phone] 03/01/2024 9:30 EDT Appointment [facility] Radiology Nuclear Medicine and PET [address] [address] documented as of this encounter Results * (ABNORMAL) QUANT BETA HCG, (11/10/2018 8:52 EDT) [facility] Quant Beta HCG, Preg 1,117(H) <5 mIU/ml 11/10/2018 9:47 EDT [facility] Comment: Reference Range: Negative = <5 Indeterminate = 5-25 recommend repeat in 48 hours. Positive = >25 The results of this assay can be falsely lowered due to the consumption of Biotin. Blood specimen (specimen) BLOOD SPECIMEN / Unknown 11/10/2018 8:52 EDT 11/10/2018 9:00 EDT Charu Flynn MD CHEMISTRY & BLOO D GAS ORDERABLES [facility] [address] [place] [address] documented in this encounter Visit Diagnoses Diagnosis Ectopic without intrauterine , unspecified location- Primary documented in this encounter Care Teams Employment Coach Relationship Specialty Start Date End Date Benita Shafer NP PCP - General 08/22/18 06/17/19 documented as of this encounter
--- OUTSIDE RECORDS SUMMARY | 2024-01-02 06:21 | XMS_ITS | Encounter Summary ---
Author Organization [facility] Address [address] [place] [address] Care Team Providers Care Measurement And Sensing Technician Name Role Phone Benita Shafer RECYCLABLE MATERIALS SORTER Primary Care Provider [phone] Reason for Visit * Reason Onset Date Comments Results 12/13/2018 Encounter Details Date Type Department Care Team (Late st Contact Info) Description 12/13/2018 Telephone [facility] Women's Services - [address] [address] Susana Tomlinson, RN Results Social History Tobacco [...] RN - 12/13/2018 1013 EDT Spoke with [facility] lab: Cristy got her blood drawn thsi am, however the machine that is used to process BHCG is not working, they anticipate that it will be fixed tomorrow. documented in this encounter Plan of Treatment Upcoming Encounters Date Type Department Care Team (Late st Contact Info) Description 02/21/2024 9:45 EDT Office Visit [facility] Adult Primary Care - [address] [phone] Carrington Calderon MD [address] [phone] 02/27/2024 8:30 EDT Telemedicine [facility] Sleep Program - [address] [phone] Dwight Colbert [address] [place] [address] [phone] 02/29/2024 10:30 EDT Appointment [facility] Radiology Nuclear Medicine and PET [address] [phone] 02/29/2024 14:30 EDT Appointment [facility] Radiology Nuclear Medicine and PET [address] [phone] 03/01/2024 8:00 EDT Appointment [facility] Radiology Nuclear Medicine and PET [address] [phone] 03/01/2024 9:30 EDT Appointment [facility] Radiology Nuclear Medicine and PET [address] [phone] documented as of this encounter Visit Diagnoses Not on filedocumented in this encounter Care Teams Measurement And Sensing Technician Relationship Specialty Start Date End Date Benita Shafer NP PCP - General 08/22/18 06/17/19 documented as of this encounter
--- OUTSIDE RECORDS SUMMARY | 2024-01-02 06:21 | XMS_ITS | Encounter Summary ---
Author Organization [facility] Address [address] [place] [address] Care Team Providers Care Special Agent Name Role Phone Benita Shafer GUSTAVO Primary Care Provider [phone] Encounter Details Date Type Department Care Team (Late st Contact Info) Description 11/10/2018 8:38 EDT - 11/10/2018 23:59 EDT Hospital Encounter [facility] [address] [place] [address] Charu Flynn MD 111 [facility], Level 4 [place] [address] Discharge Disposition: Auto Discharge Social [...] skin at bedtime. 11/26/2019 lancets One Touch DelAMS VariCode or other brand compatible with lancing device and covered by patient's insurance. 100 Each 2 10/19/2018 10/01/2019 lidocaine 5 % (LIDODERM) 5 % patch To area of pain, apply for 12 hours on, then 12 hours off. Some insurance companies do not cover this medication. There is an puce-syu-tqxxqxw cream or an cyzv-kwh-yhmoixy patch with a lower concentration that is [...] Visit [facility] Adult Primary Care - [address] 186411 Carrington Calderon MD [address] [phone] 02/27/2024 8:[address] [facility] Sleep Program - [address] [address] Dwight Colbert [address] [place] [address] [phone] 02/29/2024 10:30 EDT Appointment [facility] Radiology Nuclear Medicine and PET [address] 164161 02/29/2024 14:30 EDT Appointment [facility] Radiology Nuclear Medicine and PET [address] [address] 03/01/2024 8:00 EDT Appointment [facility] Radiology Nuclear Medicine and PET [address] [phone] 03/01/2024 9:30 EDT Appointment [facility] Radiology Nuclear Medicine and PET [address] [phone] documented as of this encounter Visit Diagnoses Not on filedocumented in this encounter Care Teams Special Agent Relationship Specialty Start Date End Date Benita Shafer NP PCP - General 08/22/18 06/17/19 documented as of this encounter
--- OUTSIDE RECORDS SUMMARY | 2024-01-02 06:21 | XMS_ITS | Encounter Summary ---
Author Organization [facility] Address [address] [place] [address] Care Team Providers Care Booster Pump Oiler Name Role Phone Benita Shafer HI TEACHER Primary Care Provider [phone] Encounter Details Date Type Department Care Team (Late st Contact Info) Description 10/26/2018 Phlebotomy Only [facility] - [address] [address] Director Of Land Acquisition, Outpatient Complication of in first trimester (Primary [...] [facility] - [address] [phone] Carrington Calderon MD 1 [facility] Level 1 [place] [address] 02/27/2024 8:30 EDT Telemedicine [facility] Sleep Program - [address] [place] [address] Dwight Colbert [address] [place], [place] [phone] 02/29/2024 10:[address] [facility] Radiology Nuclear Medicine and PET - [address] [address] 02/29/2024 14:[address] [facility] Radiology Nuclear Medicine and PET - [address] [phone] 03/01/2024 8:[address] [facility] Radiology Nuclear Medicine and PET [address] [phone] 03/01/2024 9:[address] [facility] Radiology Nuclear Medicine and PET [address] [address] documented as of this encounter Procedures Procedure Name Priority Date/Time Associated Diagnosis Comments QUANT BETA HCG, Routine 10/26/2018 8:48 EDT Complication of in first trimester documented in this encounter Results * (ABNORMAL) QUANT BETA HCG, (10/26/2018 8:48 EDT) Quant Beta HCG, Preg 1,531(H) <5 mIU/ml 10/26/2018 9:52 EDT [facility] Comment: Reference Range: Negative = <5 Indeterminate = 5-25 recommend repeat in 48 hours. Positive = >25 The results of this assay can be falsely lowered due to the consumption of Biotin. Blood specimen (specimen) BLOOD SPECIMEN / Unknown 10/26/2018 8:48 EDT 10/26/2018 9:00 EDT Ana Coronado MD CHEMISTRY & BLOOD GAS ORDERABLES [facility] [address] [place] [address] documented in this encounter Visit Diagnoses Diagnosis Complication of in first trimester- Primary documented in this encounter Care Teams Booster Pump Oiler Relationship Specialty Start Date End Date Benita Shafer NP PCP - General 08/22/18 06/17/19 documented as of this encounter
--- OUTSIDE RECORDS SUMMARY | 2024-01-02 06:21 | XMS_ITS | Encounter Summary ---
Author Organization [facility] Address [address] [place] [address] Care Team Providers Care It Software Engineer Name Role Phone Benita Shafer ACID RETORT OPERATOR Primary Care Provider [phone] Encounter Details Date Type Department Care Team [...] Visit [facility] Adult Primary Care [facility] 1 [place] [address] Carrington Calderon MD [address] [facility] 1 [place] [address] 02/27/2024 8:30 EDT Telemedicine [facility] Sleep Program - [address] [address] Dwight Colbert [address] [place] [phone] 02/29/2024 10:30 EDT Appointment [facility] [place] Radiology Nuclear Medicine and PET [address] [phone] 02/29/2024 14:30 EDT Appointment [facility] Radiology Nuclear Medicine and PET [address] [phone] 03/01/2024 8:00 EDT Appointment [facility] Radiology Nuclear Medicine and PET [address] [id number] 03/01/2024 9:30 EDT Appointment [facility] Radiology Nuclear Medicine and PET [address] 157441 documented as of this encounter Visit Diagnoses Not on filedocumented in this encounter Care Teams It Software Engineer Relationship Specialty Start Date End Date Benita Shafer NP PCP - General 08/22/18 06/17/19 documented as of this encounter
--- OUTSIDE RECORDS SUMMARY | 2024-01-02 06:21 | XMS_ITS | Encounter Summary ---
Author Organization [facility] Address [address] [place] [address] Care Team Providers Care Senior C Software Engineer Name Role Phone Benita Shafer ALGEBRA TEACHER Primary Care Provider [phone] Reason for Visit * Reason Onset Date Comments Labs Only 12/11/2018 Encounter Details Date Type Department Care Team (Late st Contact Info) Description 12/11/2018 Telephone [facility] Women's Services - [address] [address] Susana Tomlinson, RN Labs Only Social History [...] VM, left general message: nurse calling from [facility] Women???s clinic, re: blood work, were able to have blood work done last week from labs drawn at [facility], plan was repeat blood work yesterday 12/10, need to follow this to zero, very important to have this follow-up. Please call the INTERVENTIONAL TECHNOLOGIST nurses at [phone]. documented in this encounter Plan of Treatment Upcoming Encounters Date Type Department Care Team (Late st Contact Info) Description 02/21/2024 9:45 EDT Office Visit [facility] Adult Primary Care - [address] 792241 Carrington Calderon MD 1 [facility] 1 [place] [phone] 02/27/2024 8:30 EDT Telemedicine [facility] Sleep Program - [address] [phone] Dwight Colbert [address] [place] [address] [phone] 02/29/2024 10:30 EDT Appointment [facility] Radiology Nuclear Medicine and PET - [address] [phone] 02/29/2024 14:30 EDT Appointment [facility] Radiology Nuclear Medicine and PET [address] [phone] 03/01/2024 8:00 EDT Appointment [facility] Radiology Nuclear Medicine and PET - [address] 869291 03/01/2024 9:30 EDT Appointment [facility] Radiology Nuclear Medicine and PET - [address] [address] documented as of this encounter Visit Diagnoses Not on filedocumented in this encounter Care Teams Senior C Software Engineer Relationship Specialty Start Date End Date Benita Shafer NP PCP - General 08/22/18 06/17/19 documented as of this encounter
--- OUTSIDE RECORDS SUMMARY | 2024-01-02 06:21 | XMS_ITS | Encounter Summary ---
Author Organization [facility] Address [address] [place] [address] Care Team Providers Care Owner Professional Engineer Name Role Phone Benita Shafer GARAGEMAN Primary Care Provider [phone] Reason for Visit * Reason Onset Date Comments Labs Only 12/12/2018 Encounter Details Date Type Department Care Team (Late st Contact Info) Description 12/12/2018 Telephone [facility] Women's Services - [address] [address] Susana Tomlinson, RN Labs Only Social History [...] RN - 12/12/2018 1002 EDT Spoke with [facility] lab: last HCG blood draw @ their [...] [facility] Adult Primary Care - [address] [phone] Carrington Calderon MD [address] [phone] 02/27/2024 8:30 EDT Telemedicine [facility] Sleep Program - [address] 655121 Dwight Colbert [address] [place] [phone] 02/29/2024 10:30 EDT Appointment [facility] Radiology Nuclear Medicine and PET - [address] [phone] 02/29/2024 14:30 EDT Appointment [facility] Radiology Nuclear Medicine and PET - [address] [id number] 03/01/2024 8:00 EDT Appointment [facility] Radiology Nuclear Medicine and PET - [address] 418303 [phone] 03/01/2024 9:30 EDT Appointment [facility] Radiology Nuclear Medicine and PET - [address] [address] documented as of this encounter Visit Diagnoses Not on filedocumented in this encounter Care Teams Owner Professional Engineer Relationship Specialty Start Date End Date Benita Shafer NP PCP - General 08/22/18 06/17/19 documented as of this encounter
--- OUTSIDE RECORDS SUMMARY | 2024-01-02 06:21 | XMS_ITS | Encounter Summary ---
Author Organization [facility] Address [address] [place] [address] Care Team Providers Care Soda Worker Name Role Phone Benita Shafer MOP MAKER Primary Care Provider [phone] Reason for Visit * Reason Comments Arm Pain pt to ed c/o right s houlder pain that radiates down to right hand. pt states pain started last while walking. distal CSMT intact. denies trauma. 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 There is an xvdn-ztm-xzqtajo cream or an ifjz-eeg-ljeeptw patch with a lower concentration that is [...] not cover this medication. There is an cgdu-prs-dwmtgcu cream or an yrye-kyd-vdklakl patch with a lower concentration that is [...] exam for emergent medical conditions at the on 11/01/2018 Scribe attestation: This documentation is [...] to verify the correct patient, procedure, equipment, support engineer and site/side marked as required. Indications: pain [...] sudden decompensation. * Angelika Dallas - 11/01/2018 5040 EDT TCALL: Cristy Luo [birth year]. CC: Ectopic [...] [facility] Adult Primary Care - [address] [phone] Carrington Calderon MD [address] [phone] 02/27/2024 8:30 EDT Telemedicine [facility] Sleep Program - [address] [phone] Dwight Colbert [address] [place] [phone] 02/29/2024 10:30 EDT Appointment [facility] Radiology Nuclear Medicine and PET [address] [address] 02/29/2024 14:30 EDT Appointment [facility] Radiology Nuclear Medicine and [address] [phone] 03/01/2024 8:00 EDT Appointment [facility] Radiology Nuclear Medicine and PET [address] 119651 03/01/2024 9:30 EDT Appointment [facility] Radiology Nuclear Medicine and [address] [address] documented as of this encounter Procedures Procedure [...] 17.33(H) 4.0 - 12.4 K/cmm 11/01/2018 20:22 EDT [facility] RBC 4.63 3.86 - 5.04 M/cmm 11/01/2018 20:22 T [facility] Hemoglobin 14.2 11.6 - 15.2 gm/dl 11/01/2018 20:22 EDT [facility] HCT 41.0 34.9 - 44.4 % 11/01/2018 20:22 EDT [facility] MCV 89 81 - 98 fl 11/01/2018 20:22 EDT [facility] MCH 30.7 26.7 - 33.3 pg 11/01/2018 20:22 [facility] MCHC 34.6 32.1 - 35.9 gm/dl 11/01/2018 20:22 [facility] RDW-CV 12.1 <14.7 % 11/01/2018 20:22 [facility] RDW-SD 38.3 <50.4 fl 11/01/2018 20:22 [facility] PLT 351 141 - 377 K/[facility] 11/01/2018 20:22 [facility] MPV 9.8 9.5 - 12.7 fl 11/01/2018 20:22 [facility] Neutrophils 59.3 % 11/01/2018 20:49 [facility] Lymphocytes 32.7 % 11/01/2018 20:49 [facility] Monocytes 4.4 % 11/01/2018 20:49 [facility] Eosinophils 2.7 % 11/01/2018 20:49 [facility] % Atyp Lymphs 0.9 % 11/01/2018 20:49 [facility] ABS Neutrophils 10.28(H) 2.20 - 8.85 K/cm 11/01/2018 20:49 [facility] ABS Lymphs 5.67(H) 1.09 - 3.30 K/cm 11/01/2018 20:49 [facility] ABS Monocytes 0.76 0.1 - 0.8 K/cmm 11/01/2018 20:49 [facility] ABS Eosinophils 0.47 0.03 - 0.61 K/cm 11/01/2018 20:49 [facility] ABS Atyp Lymphs 0.16 K/cm 9 20:49 [facility] Type of Diff: Manual 11/01/2018 20:49 [facility] Blood specimen (specimen) BLOOD SPECIMEN / Unknown 11/01/2018 19:38 EDT 11/01/2018 19:55 EDT Kevan Gr MD PACKAGES & DNA PROBE ORDERABLES Performing Organization Address City/[facility]/ZIP Co de Phone Number [facility] [address] [place] [address] * (ABNORMAL) BASIC METABOLIC PANEL (BMP) (11/01/2018 19:38 EDT) Sodium 136 136 - 145 mEq/L 11/01/2018 20:16 [facility] Potassium 4.1 3.5 - 5.0 mEq/L 11/01/2018 20:16 [facility] Chloride 99 96 - 110 mEq/L 11/01/2018 20:16 [facility] CO2 27 22 - 32 mEq/L 11/01/2018 20:16 [facility] BUN 10 10 - 26 mg/dl 11/01/2018 20:16 [facility] Creatinine 0.39(L) 0.52 - 1.04 mg/dl 11/01/2018 20:16 [facility] GFR, Calculated 138 >60 ml/min/1.7 3m2 11/01/2018 20:16 [facility] Comment: eGFR calculated using CKD-EPI equation for non Americans. Multiply eGFR by 1.16 for Americans. Calcium 10.2 8.5 - 10.5 mg/dl 11/01/2018 20:16 [facility] Calculated Calcium 10.2 8.5 - 10.5 mg/dl 11/01/2018 20:16 [facility] Glucose, Serum 225(H) 70 - 100 mg/dl 11/01/2018 20:16 [facility] Fasting? Unknown 11/01/2018 19:56 [facility] Blood specimen (specimen) BLOOD SPECIMEN / Unknown 11/01/2018 19:38 EDT 11/01/2018 19:55 EDT Kevan Gr MD CHEMISTRY & BLOOD GA S ORDERABLES Performing Organization Address City/[facility]/ZIP Co de Phone Number [facility] [address] [place] [address] * CK (11/01/2018 19:38 EDT) CK 42 30 - 135 U/L 11/01/2018 20:16 EDT [facility] Blood specimen (specimen) BLOOD SPECIMEN / Unknown 11/01/2018 19:38 EDT 11/01/2018 19:55 EDT Kevan Gr MD CHEMISTRY & BLOOD GA S ORDERABLES Performing Organization Address [facility] [[email or web address]] Co de Phone Number [facility] [address] [place] [address] * Nerve Block (11/01/2018 19:09 EDT) Narrative [facility] EKG - 11/01/2018 19:09 EDT Kevan Gr [...] to verify the correct patient, procedure, equipment, support engineer and site/side marked as required. Indications: pain [...] Kevan Gr MD PROCEDURE/MINOR SURG ICAL ORDERABLES Performing Organization Address City/[facility]/ZIP Co de Phone Number [facility] EKG documented in this encounter Visit [...] 1 dose, On Tue11/01/18 at 1945, STAT 1952 (Given - Provid er: Zelda Leahy RN) documented in this encounter Care Teams Soda Worker Relationship Specialty Start Date End Date Benita Shafer NP PCP - General 08/22/18 06/17/19 documented as of this encounter
--- OUTSIDE RECORDS SUMMARY | 2024-01-02 06:21 | XMS_ITS | Encounter Summary ---
Author Organization [facility] Address [address] [place] [address] Care Team Providers Care Radio Technician Name Role Phone Benita Shafer TELEPHONIC RN Primary Care Provider Reason for Visit * Reason Onset Date Comments Labs Only 11/09/2018 Encounter Details Date Type Department Care Team (Late st Contact Info) Description 11/09/2018 Telephone [facility] Women's Services - [address] [address] Susana Tomlinson, RN Labs Only Social History [...] VM, left general message: Nurse calling from [facility], calling to check in & see how you are doing, also to remind you to get your blood work done, ok to get it drawn [place] [facility] to let us know when done & how you are doing. documented in this encounter Plan of Treatment Upcoming Encounters Date Type Department Care Team (Late st Contact Info) Description 02/21/2024 9:45 EDT Office Visit [facility] Adult Primary Care - [address] 492181 Carrington Calderon MD [address] [phone] 02/27/2024 8:30 EDT Telemedicine [facility] Sleep Program - [address] [phone] Dwight Colbert [address] [place] [phone] 02/29/2024 10:30 EDT Appointment [facility] Radiology Nuclear Medicine and PET - [address] [phone] 02/29/2024 14:30 EDT Appointment [facility] Radiology Nuclear Medicine and PET [address] [phone] 03/01/2024 8:00 EDT Appointment [facility] Radiology Nuclear Medicine and PET [address] [phone] 03/01/2024 9:30 EDT Appointment [facility] Radiology Nuclear Medicine and PET [address] [phone] documented as of this encounter Visit Diagnoses Not on filedocumented in this encounter Care Teams Radio Technician Relationship Specialty Start Date End Date Benita Shafer NP PCP - General 08/22/18 06/17/19 documented as of this encounter
--- OUTSIDE RECORDS SUMMARY | 2024-01-02 06:21 | XMS_ITS | Encounter Summary ---
Author Organization [facility] Address [address] [place] [address] Care Team Providers Care Electric Motor Tester Assembler Name Role Phone Benita Shafer AGRICULTURAL SYSTEMS SPECIALIST Primary Care Provider [phone] Encounter Details Date Type Department Care Team (Late st Contact Info) Description 11/21/2018 Orders Only [facility] Women's Services - [address] [phone] Charu Flynn MD 111 [facility], Level 4 [place] [address] Social History Tobacco Use Types [...] Info) Description 02/21/2024 9:45 EDT Office Visit [facility] Adult Primary Care - [address] [phone] Carrington Calderon MD [address] [phone] 02/27/2024 8:30 EDT Telemedicine [facility] Sleep Program - [address] [phone] Dwight Colbert [address] [place] [address] [phone] 02/29/2024 10:30 EDT Appointment [facility] Radiology Nuclear Medicine and PET [address] [phone] 02/29/2024 14:30 EDT Appointment [facility] Radiology Nuclear Medicine and PET [address] [phone] 03/01/2024 8:00 EDT Appointment [facility] Radiology Nuclear Medicine and PET [address] [id number] 03/01/2024 9:30 EDT Appointment [facility] Radiology Nuclear Medicine and PET [address] [phone] documented as of this encounter Procedures Procedure Name Priority Date/Time Associated Diagnosis Comments QUANT BETA HCG, Routine 11/21/2018 11:23 EDT documented in this encounter Results * QUANT BETA HCG, (11/21/2018 11:23 EDT) HCG, External 299.98 2.39 - 15,000 mIU/mL [facility] Comment:Please see the scann ed report in EPIC for further interpretation. Blood specimen (specimen) 11/21/2018 11:23 EDT Charu Flynn MD CHEMISTRY & BLOO D GAS ORDERABLES [facility] documented in this encounter Visit Diagnoses Not on filedocumented in this encounter Care Teams Electric Motor Tester Assembler Relationship Specialty Start Date End Date Benita Shafer NP PCP - General 08/22/18 06/17/19 documented as of this encounter
--- OUTSIDE RECORDS SUMMARY | 2024-01-02 06:21 | XMS_ITS | Encounter Summary ---
Author Organization [facility] Address [address] [place] [address] Care Team Providers Care Yarder Name Role Phone Benita Shafer GUSTAVO Primary Care Provider [phone] Encounter Details Date Type Department Care Team (Late st Contact Info) Description 10/29/2018 9:12 EDT - 10/29/2018 23:59 EDT Hospital Encounter [facility] [address] [place] [address] Charu Flynn MD 111 [facility], Level 4 [place] [address] Discharge Disposition: Home or Self [...] or Self Prison documented in this encounter Plan of Treatment Upcoming Encounters Date Type Department Care Team (Late st Contact Info) Description 02/21/2024 9:45 EDT Office Visit [facility] Adult Primary Care - [address] 048661 Carrington Calderon MD [address] [phone] 02/27/2024 8:30 EDT Telemedicine [facility] Sleep Program - [address] 010721 Dwight Colbert [address] [place] [phone] 02/29/2024 10:30 EDT Appointment [facility] Radiology Nuclear Medicine and PET - [address] [id number] 02/29/2024 14:30 EDT Appointment [facility] Radiology Nuclear Medicine and PET - [address] [id number] 03/01/2024 8:00 EDT Appointment [facility] Radiology Nuclear Medicine and PET - [address] [id number] 03/01/2024 9:30 EDT Appointment [facility] Radiology Nuclear Medicine and PET - [address] [phone] documented as of this encounter Visit Diagnoses Not on filedocumented in this encounter Care Teams Yarder Relationship Specialty Start Date End Date Benita Shafer NP PCP - General 08/22/18 06/17/19 documented as of this encounter
--- OUTSIDE RECORDS SUMMARY | 2024-01-02 06:21 | XMS_ITS | Encounter Summary ---
Author Organization [facility] Address [address] [place] [address] Care Team Providers Care Land Resource Specialist Name Role Phone Benita Shafer ESTHETICIAN/SKIN THERAPIST Primary Care Provider [phone] Encounter Details Date Type Department Care Team (Late st Contact Info) Description 10/29/2018 Phlebotomy Only [facility] - [address] [address] Director Of Dance, Outpatient 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 (Primary Dx) [...] [facility] Adult Primary Care - [address] [address] Carrington Calderon MD 1 [facility] Level 1 [place] [address] 02/27/2024 8:30 EDT Telemedicine [facility] Sleep Program - [place] [address] [place] [address] Dwight Colbert [address] [place], [place] [phone] 02/29/2024 10:[address] [facility] Radiology Nuclear Medicine and PET - [address] [address] 02/29/2024 14:[address] [facility] Radiology Nuclear Medicine and PET [address] [phone] 03/01/2024 8:[address] [facility] Radiology Nuclear Medicine and PET [address] [id number] 03/01/2024 9:[address] [facility] Radiology Nuclear Medicine and PET [address] [address] documented as of this encounter Procedures Procedure Name Priority Date/Time Associated Diagnosis Comments QUANT BETA HCG, Routine 10/29/2018 9:20 EDT 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 documented in this encounter Results * (ABNORMAL) QUANT BETA HCG, (10/29/2018 9:20 EDT) Quant Beta HCG, Preg 2,338(H) <5 mIU/ml 10/29/2018 10:12 EDT [facility] Comment: Reference Range: Negative = <5 Indeterminate = 5-25 recommend repeat in 48 hours. Positive = >25 The results of this assay can be falsely lowered due to the consumption of Biotin. Blood specimen (specimen) BLOOD SPECIMEN / Unknown 10/29/2018 9:20 EDT 10/29/2018 9:38 EDT Charu Flynn MD CHEMISTRY & BLOO D GAS ORDERABLES [facility] [address] [place] [address] documented in this encounter Visit Diagnoses Diagnosis 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 - Primary documented in this encounter Care Teams Land Resource Specialist Relationship Specialty Start Date End Date Benita Shafer NP PCP - General 08/22/18 06/17/19 documented as of this encounter
--- OUTSIDE RECORDS SUMMARY | 2024-01-02 06:21 | XMS_ITS | Encounter Summary ---
Author Organization [facility] Address [address] [place] [address] Care Team Providers Care Cloth Brushing And Sueding Supervisor Name Role Phone Benita Shafer BRASS BOBBIN WINDER Primary Care Provider [phone] Encounter Details Date Type Department Care Team (Late st Contact Info) Description 11/03/2018 Orders Only [facility] Women's Services - [facility] [address] [place], [place] 404281 Charu Flynn MD 111 [facility] 4 [place] [address] Social History Tobacco Use Types [...] [facility] Adult [facility] - [address] [phone] Carrington Calderon MD [address] [place] [address] 1 [place] [address] 02/27/2024 8:30 EDT Telemedicine [facility] Sleep Program - [address] 238941 Dwight Colbert [address] [place], [place] [address]2001 02/29/2024 10:30 EDT [facility] - [address] [phone] 02/29/2024 14:30 EDT Appointment [facility] Radiology Nuclear Medicine and PET [address] [phone] 03/01/2024 8:00 EDT Appointment [facility] Radiology Nuclear Medicine and PET [address] [phone] 03/01/2024 9:30 EDT Appointment [facility] Radiology Nuclear Medicine and PET [address] [phone] documented as of this encounter Procedures Procedure Name Priority Date/Time Associated Diagnosis Comments QUANT BETA HCG, Routine 11/01/2018 11:09 EDT documented in this encounter Results * QUANT BETA HCG, (11/01/2018 11:09 EDT) HCG, External 1,652.8 2.39 - 15,000 mIU/mL [facility] Comment:Please see the scann ed report in EPIC for further interpretation. Blood specimen (specimen) 11/01/2018 11:09 EDT Charu Flynn MD CHEMISTRY & BLOO D GAS ORDERABLES [facility] documented in this encounter Visit Diagnoses Not on filedocumented in this encounter Care Teams Cloth Brushing And Sueding Supervisor Relationship Specialty Start Date End Date Benita Shafer NP PCP - General 08/22/18 06/17/19 documented as of this encounter
--- OUTSIDE RECORDS SUMMARY | 2024-01-02 06:21 | XMS_ITS | Encounter Summary ---
Author Organization [facility] Address [address] [place] [address] Care Team Providers Care Supervisor Advertising Dispatch Clerks Name Role Phone Benita Shafer DEMURRAGE AGENT Primary Care Provider [phone] Reason for Visit * Reason Onset Date Comments Problem 10/31/2018 Encounter Details Date Type Department Care Team (Late st Contact Info) Description 10/31/[address] [facility] Women's Services - [facility] [address] [place] [address] Susana Tomlinson RN 10 weeks gestation of [...] [facility] Adult Primary Care - [address] 570671 Carrington Calderon MD [address] [phone] 02/27/2024 8:[address] [facility] Sleep Program - [address] [address] Dwight Colbert [address] [place] [address] 02/29/2024 10:30 EDT [facility] Rad[facility] Nuclear Medicine and PET - [address] [address] 02/29/2024 14:30 EDT Appointment [facility] [place] Radiology Nuclear Medicine and PET [address] [id number] 03/01/2024 8:00 EDT [facility] [address] [id number] 03/01/2024 9:30 EDT Appointment [facility] Radiology Nuclear Medicine and PET - [address] [address] documented as of this encounter Visit Diagnoses Diagnosis 10 weeks gestation of - Primary state, incidental documented in this encounter Care Teams Supervisor Advertising Dispatch Clerks Relationship Specialty Start Date End Date Benita Shafer NP PCP - General 08/22/18 06/17/19 documented as of this encounter
--- OUTSIDE RECORDS SUMMARY | 2024-01-02 06:21 | XMS_ITS | Encounter Summary ---
Author Organization [facility] Address [address] [place] [address] Care Team Providers Care Log Feeder Name Role Phone Benita Shafer CLINICAL MICROBIOLOGIST Primary Care Provider [phone] Encounter Details Date Type Department Care Team (Late st Contact Info) Description 10/26/2018 Orders Only [facility] Women's Services - [facility] [address] [place], [place] 135201 Charu Flynn MD 111 [facility] 4 [place] [phone] Social History Tobacco Use Types Packs/Day Years [...] Description 02/21/2024 9:45 EDT Office Visit [facility] Adult Primary Care - [address] 284191 Carrington Calderon MD 1 [facility] 1 [place] [phone] 02/27/2024 8:30 EDT Telemedicine [facility] Sleep Program - [place] 1 [place] [address] Dwight Colbert [address] [place] [address] 02/29/2024 10:30 EDT Appointment [facility] Radiology Nuclear Medicine and PET [address] [address] 02/29/2024 14:30 EDT Appointment [facility] Radiology Nuclear Medicine and PET - [address] [address] 03/01/2024 8:00 EDT Appointment [facility] Radiology Nuclear Medicine and PET [address] [phone] 03/01/2024 9:30 EDT Appointment [facility] Radiology Nuclear Medicine and PET [address] [address] documented as of this encounter Visit Diagnoses Not on filedocumented in this encounter Care Teams Log Feeder Relationship Specialty Start Date End Date Benita Shafer NP PCP - General 08/22/18 06/17/19 documented as of this encounter
--- OUTSIDE RECORDS SUMMARY | 2024-01-02 06:21 | XMS_ITS | Encounter Summary ---
Author Organization [facility] Address [address] [place] [address] Care Team Providers Care Wireless Field Technician Name Role Phone Benita Shafer GUSTAVO Primary Care Provider [phone] Reason for Visit * Reason Onset Date Comments Appointment Related 12/11/2018 Encounter Details Date Type Department Care Team (Late st Contact Info) Description 12/11/2018 Telephone [facility] Obstetrics & Midwifery - [facility] [address] [place], [place] [phone] Nohemy Sales MD 111 [facility], Level 4 [place] [address] Appointment Related Social History Tobacco [...] Miscellaneous Notes * Telephone Encounter - Donna Hobson - 12/11/2018 1429 EDT LVM for patient offering to reschedule no showed appt. documented in this encounter Plan of Treatment Upcoming Encounters Date Type Department Care Team (Late st Contact Info) Description 02/21/2024 9:45 EDT Office Visit [facility] Adult Primary Care - [address] 174661 Carrington Calderon MD [address] [phone] 02/27/2024 8:30 EDT Telemedicine [facility] Sleep Program - [address] 933881 Dwight Colbert [address] [place] [address] [phone] 02/29/2024 10:30 EDT Appointment [facility] Radiology Nuclear Medicine and PET [address] [phone] 02/29/2024 14:30 EDT Appointment [facility] Radiology Nuclear Medicine and PET - [address] [phone] 03/01/2024 8:00 EDT Appointment [facility] Radiology Nuclear Medicine and PET [address] [phone] 03/01/2024 9:30 EDT Appointment [facility] Radiology Nuclear Medicine and PET [address] [phone] documented as of this encounter Visit Diagnoses Not on filedocumented in this encounter Care Teams Wireless Field Technician Relationship Specialty Start Date End Date Benita Shafer NP PCP - General 08/22/18 06/17/19 documented as of this encounter
--- OUTSIDE RECORDS SUMMARY | 2024-01-02 06:21 | XMS_ITS | Encounter Summary ---
Author Organization [facility] Address [address] [place] [address] Care Team Providers Care Researcher Name Role Phone Benita Shafer GUSTAVO Primary Care Provider [phone] Reason for Referral * Consult (Routine) - Closed Specialty Diagnoses / Procedures Referred By Kit goode Referred To Contact Obstetrics Diagnoses Poorly controlled type 2 diabetes mellitus ([facility]) Tobacco dependence Class II obesity Jonas Ojeda MD [address] [place] [address] [facility] Ep4 Ob/Mfm [address] [place] [address] Referral ID Status Reason Start Date Expiration Date V isits Requested Visits Authorized [id number] Closed Specialty Services Required 11/03/2018 1 1 [...] Diagnoses Poorly controlled type 2 diabetes mellitus ([facility]) Recurrent loss Jonas Ojeda MD [address] [place] [address] [facility] Endocrinology [address] [place] [address] Referral ID Status Reason Start Date Expiration Date Visits Requested Visits Authorized [id number] Specialty Report Received Specialty Services Required 11/03/2018 [...] complication, with long-term current use of insulin ([facility]) Abnormal human chorionic gonadotropin (hCG) 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 Charu Flynn MD [address] [place] [address] 4 [place] [address] [facility] Mp4 Edis [address] [place] [address] Referral ID Status Reason Start Date Expiration Date Visits Requested Visits Authorized [id number] Specialty Report Received Specialty Services Required 10/26/2018 1 1 Encounter Details Date Type Department Care Team (Latest Contact Info) Description 11/03/2018 9:00 EDT Office Visit [facility] [address] [address] Jonas Ojeda MD [address] [place] [address] [address] Poorly controlled type 2 diabetes [...] from the patient and cross reviewing her [facility] [[email or web address]] records for accuracy. Of note, the patient's [...] her PCPs office (Benita Shafer NP - [place]) approximately 1 to 2 months ago. Patient reports feeling frustrated with her sugar control and would like a more aggressive management plan. She has never seen an cognos architect nor has been on an insulin pump, but she isvery interested in pursuing this. Other notable history includes tobacco dependence smoking approximately half a pack to a full pack per day for the last 4 years. She also smokes marijuana 1-2 times daily. Full review of her medical, surgical, medication, allergies, and social history obtained and is accurate and up-to-date in [facility]. OB History Para Term AB Living 7 0 0 0 7 0 SAB TAB Ectopic Multiple Live Births 6 0 1 0 0 # Outcome Date GA Lbr Partha/2nd Weight Sex Delivery Anes PTL Lv 7 Ectopic 10/2018 10w4d ECTOPIC Comments: interstitial diagnosed at [facility] [[email or web address]]; given MTX 10/26/18 6 SAB 01/2018 6w0d SAB Comments: D&C at [facility] after nonviable on US; had to have repeat D&Bhavna November for retained POCs 5 SAB 06/2017 6w0d SAB Comments: D&C at [facility]; nonviable seen on US; fourth with current 4 SAB 02/2017 6w0d SAB Comments: D&C at [facility] [[email or web address]]; third with current 3 SAB 08/2015 10w0d SAB Comments: D&C at [facility] [[email or web address]]; 2nd with current 2 SAB 01/2015 9w0d SAB Comments: D&C at [facility] [[email or web address] first current 1 SAB 2005 6w0d SAB Comments: first ; ex ; twin confirmed by US at [facility]; no medical or surgical tx [...] not cover this medication. 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 female with recurrent loss most certainly secondary to poorly controlled type 2 diabetes in conjunction with tobacco dependence who presents for consultation. Plan: Cristy was seen today for recurrent miscarriage. Diagnoses and all orders for this visit: Poorly controlled type 2 diabetes mellitus ([facility]) - AMB CONS/FOLLOW UP ENDOCRINOLOGY - [...] MD, PGY5 Fellow Reproductive Endocrinology & Infertility [facility] 11/03/2018 / 9:54 EDIS Attending Addendum: I [...] Office Visit [facility] Adult Primary Care - [address] [phone] Carrington Calderon MD [address] [phone] 02/27/2024 8:30 EDT Telemedicine [facility] Sleep Program - [address] [phone] Dwight Colbert [address] [place] [address] [phone] 02/29/2024 10:30 EDT Appointment [facility] Radiology Nuclear Medicine and PET - [address] [phone] 02/29/2024 14:30 EDT Appointment [facility] Radiology Nuclear Medicine and PET [address] [phone] 03/01/2024 8:00 EDT Appointment [facility] Radiology Nuclear Medicine and PET - [address] [phone] 03/01/2024 9:30 EDT Appointment [facility] Radiology Nuclear Medicine and PET [address] [phone] Scheduled Referrals Name Type Priority Associated Diagnoses Order Schedule AMB CONS/FOLLOW UP ENDOCRINOLOGY Outpatient Referral Routine Poorly controlled type 2 diabetes mellitus ([facility]) Recurrent loss Ordered: 11/03/2018 AMB CONS/FOLLOW UP MATERNAL MEDICINE Outpatient Referral Routine Poorly controlled type 2 diabetes mellitus ([facility]) Tobacco dependence Class II obesity Ordered: 11/03/2018 documented as of this encounter Results * (ABNORMAL) THYROID CASCADE (11/03/2018 10:47 EDT) Pathologist [facility] TSH 0.40(L) 0.47 - 4.68 uIU/ml 11/03/2018 12:19 EDT [facility] Comment: TSH cascade is not recommended for patients in which pituitary or hypothalamic disorders are suspected. The results of this assay can be falsely lowered due to the consumption of Biotin. Blood specimen (specimen) BLOOD SPECIMEN / Unknown 11/03/2018 10:47 EDT 11/03/2018 11:17 EDT Jonas Ojeda MD CHEMISTRY & BLOOD GA S ORDERABLES [facility] [address] [place] [address] * PROLACTIN (11/03/2018 10:47 EDT) Pathologist [facility] Prolactin 5.4 ng/ml 11/03/2018 13:09 EDT [facility] Comment: Non-: 2.8-29.2 : 9.7-208.5 Post Menopausal: 1.8-20.3 Blood specimen (specimen) BLOOD SPECIMEN / Unknown 11/03/2018 10:47 EDT 11/03/2018 11:17 EDT Jonas Ojeda MD CHEMISTRY & BLOOD GA S ORDERABLES Performing Organization Address [facility] Co de Phone Number [facility] [address] [place] [address] * HEMOGLOBIN A1C (11/03/2018 10:47 EDT) Hemoglobin A1C 10.9 % 11/03/2018 15:29 EDT [facility] Comment: Reference Range: <5.7% Normal 5.7-6.4% Prediabetes =>6.5% Diagnostic for diabetes (if confirmed) Goals for glycemic control in diabetes ADA 2017 For non adults with diabetes: ?? Target <7.0% For children and adolescents with type 1 diabetes: ?? Target <7.5% More or less stringent targets may be appropriate for individual patients. Est Avg Glucose 266 mg/dl 9 15:29 EDT [facility] Comment: eAG represents the A1c result expressed as average glucose in mg/dl. Blood specimen (specimen) BLOOD SPECIMEN / Unknown 11/03/2018 10:47 EDT 11/03/2018 11:17 EDT Jonas Ojeda MD CHEMISTRY & BLOOD GA S ORDERABLES Performing Organization Address [facility] Co de Phone Number [facility] [address] [place] [address] documented in this encounter Visit Diagnoses Diagnosis Poorly controlled type 2 diabetes mellitus ([facility])- Primary Type II or unspecified type diabetes mellitus without mention of complication, not stated as uncontrolled Recurrent loss Tobacco dependence Tobacco use disorder Class II obesity documented in this encounter Care Teams Researcher Relationship Specialty Start Date End Date Benita Shafer NP PCP - General 08/22/18 06/17/19 documented as of this encounter
--- OUTSIDE RECORDS SUMMARY | 2024-01-02 06:21 | XMS_ITS | Encounter Summary ---
Author Organization [facility] Address [address] [place] [address] Care Team Providers Care Carbon Brush Maker Name Role Phone Benita Shafer GUSTAVO Primary Care Provider [phone] Encounter Details Date Type Department Care Team (Late st Contact Info) Description 10/26/2018 8:34 EDT - 10/26/2018 11:35 EDT Hospital Encounter [facility] [address] [place] [address] Ana Coronado MD 111 [facility], Level 4 [place] [address] Discharge Disposition: Auto Discharge Social [...] Description 02/21/2024 9:45 EDT Office Visit [facility] Adult Primary Care - [address] [phone] Carrington Caledron MD 1 [facility] 1 [place] [phone] 02/27/2024 8:30 EDT Telemedicine [facility] Sleep Program - [address] 195211 Dwight Colbert [address] [place] [address] [phone] 02/29/2024 10:30 EDT Appointment [facility] Radiology Nuclear Medicine and PET - [address] [phone] 02/29/2024 14:30 EDT Appointment [facility] Radiology Nuclear Medicine and PET - [address] [id number] 03/01/2024 8:00 EDT Appointment [facility] Radiology Nuclear Medicine and PET - [address] [phone] 03/01/2024 9:30 EDT Appointment [facility] Radiology Nuclear Medicine and PET - [address] [phone] documented as of this encounter Visit Diagnoses Not on filedocumented in this encounter Care Teams Carbon Brush Maker Relationship Specialty Start Date End Date Benita Shafer NP PCP - General 08/22/18 06/17/19 documented as of this encounter
--- OUTSIDE RECORDS SUMMARY | 2024-01-02 06:21 | XMS_ITS | Encounter Summary ---
Author Organization [facility] Address [address] [place] [address] Care Team Providers Care Balance Wheel Screw Hole Tapper Name Role Phone Benita Shafer GUSTAVO Primary Care Provider [phone] Reason for Visit * Reason Onset Date Comments Labs Only 11/01/2018 Encounter Details Date Type Department Care Team (Late st Contact Info) Description 11/01/2018 Telephone [facility] Women's Services - [address] [id number] Charu Flynn MD 111 [facility], Level 4 [place] [address] Labs Only Social History Tobacco [...] RN - 11/01/2018 1606 EDT Spoke with [facility] lab BHCG today = 1652.8. Cristy ANDERSON: [...] to go to ER, can go to [facility] or [facility]. Spoke with Cristy: she denies SOB, but reports arm hurts when she coughs or moves, does not think her arm is swollen, reports had mild intermittent 4/10 cramping over weekend, no VB. Advised as HCG dropped appropriately will not need another MTX. She will proceed to [facility] ER. Spoke with ER triage: gave summary & Cristy ETA 5:30-6pm. * Telephone Encounter - Susana Tomlinson RN - 11/01/2018 1415 EDT Spoke with Radha @ [facility] lab, she could see [facility] lab orders [...] CBC (if needed) cannot be run from [facility]. RTCB to [phone] with quant HCG results. * Telephone Encounter - Miley Wolff - 11/01/2018 1400 EDT Radha from the outpatient lab at [facility] has some questions about the labwork for this patient. documented in this encounter Plan of Treatment Upcoming Encounters Date Type Department Care Team (Late st Contact Info) Description 02/21/2024 9:45 EDT Office Visit [facility] Adult Primary Care - [address] [phone] Carrington Calderon MD [address] [phone] 02/27/2024 8:30 EDT Telemedicine [facility] Sleep Program - [address] 771191 Dwight Colbert [address] [place] [phone] 02/29/2024 10:30 EDT Appointment [facility] Radiology Nuclear Medicine and PET - [address] [id number] 02/29/2024 14:30 EDT Appointment [facility] Radiology Nuclear Medicine and PET - [address] [phone] 03/01/2024 8:00 EDT Appointment [facility] Radiology Nuclear Medicine and PET - [address] 840351 03/01/2024 9:30 EDT Appointment [facility] Radiology Nuclear Medicine and PET - [address] [address] documented as of this encounter Procedures Procedure Name Priority Date/Time Associated Diagnosis Comments QUANT BETA HCG, Routine 11/01/2018 11:09 EDT documented in this encounter Results * QUANT BETA HCG, (11/01/2018 11:09 EDT) HCG, External 1,652.8 2.39 - 1,500 mIU/mL [facility] Blood specimen (specimen) 11/01/2018 11:09 EDT Charu Flynn MD CHEMISTRY & BLOO D GAS ORDERABLES [facility] documented in this encounter Visit Diagnoses Not on filedocumented in this encounter Care Teams Balance Wheel Screw Hole Tapper Relationship Specialty Start Date End Date Benita Shafer NP PCP - General 08/22/18 06/17/19 documented as of this encounter
--- OUTSIDE RECORDS SUMMARY | 2024-01-02 06:21 | XMS_ITS | Encounter Summary ---
Author Organization [facility] Address [address] [place] [address] Care Team Providers Care Counter Tacker Name Role Phone Benita Shafer MEMBERSHIP COUNSELOR Primary Care Provider [phone] Reason for Visit * Reason Onset Date Comments Labs Only 10/29/2018 Encounter Details Date Type Department Care Team (Late st Contact Info) Description 10/29/2018 Telephone [facility] Women's Services - [address] [address] Deborah Saleh MD [address] [place] [address] Labs Only Social History [...] Encounter - Deborah Saleh MD - 10/29/2018 6699 EDT Left voicemail indicating we received Day 4 HCG s/p MTX. No changes to plan. Next lab draw on Day 7. Deborah Saleh MD 10/29/2018 17:50 Obstetrics & Gynecology, PGY-4 Pager [phone] documented in this encounter Plan of Treatment Upcoming Encounters Date Type Department Care Team (Late st Contact Info) Description 02/21/2024 9:45 EDT Office Visit [facility] Adult Primary Care - [address] [address] Carrington Calderon MD 1 [facility] 1 [place] [address] 02/27/2024 8:30 EDT Telemedicine [facility] Sleep Program - [address] [address] Dwight Colbert [address] [place] [address] [phone] 02/29/2024 10:30 EDT Appointment [facility] Radiology Nuclear Medicine and PET [address] [id number] 02/29/2024 14:30 EDT Appointment [facility] Radiology Nuclear Medicine and PET [address] [id number] 03/01/2024 8:00 EDT Appointment [facility] Radiology Nuclear Medicine and PET - [address] 197901 03/01/2024 9:30 EDT Appointment [facility] Radiology Nuclear Medicine and PET [address] [phone] documented as of this encounter Visit Diagnoses Diagnosis Ectopic , unspecified location, unspecified whether intrauterine present- Primary documented in this encounter Care Teams Counter Tacker Relationship Specialty Start Date End Date Benita Shafer NP PCP - General 08/22/18 06/17/19 documented as of this encounter
--- OUTSIDE RECORDS SUMMARY | 2024-01-02 06:21 | XMS_ITS | Encounter Summary ---
Author Organization [facility] Address [address] [place] [address] Care Team Providers Care Tube Molder Fiberglass Name Role Phone Benita Shafer PARK INTERPRETER Primary Care Provider [phone] Reason for Visit * Reason Comments Sore [...] 8:50 EDT - 11/21/2018 10:09 EDT Emergency [facility] Emergency Department - [address] [address] Josh Coelho, PA-C 111 [facility], Level 1 [place] [phone] Emergency, MD Ekaterina Pharyngitis, unspecified etiology (Primary [...] sent through Care Everywhere. * SORE THROAT ([place]) * STREP THROAT ([place]) documented in this encounter Medications at Time [...] not cover this medication. There is an nwag-boh-ixvjscm cream or an aqow-bvc-hhdskpb patch with a lower concentration that is [...] [facility] Adult Primary Care - [address] [phone] Carrington Calderon MD [address] [phone] 02/27/2024 8:30 EDT Telemedicine [facility] Sleep Program - [address] [phone] Dwight Colbert [address] [place] [phone] 02/29/2024 10:30 EDT Appointment [facility] Radiology Nuclear Medicine and [address] [phone] 02/29/2024 14:30 EDT Appointment [facility] Radiology Nuclear Medicine and [address] [phone] 03/01/2024 8:00 EDT Appointment [facility] Radiology Nuclear Medicine and PET [address] [phone] 03/01/2024 9:30 EDT Appointment [facility] Radiology Nuclear Medicine and [address] [phone] documented as of this encounter Procedures Procedure Name Priority Date/Time Associated Diagnosis Comments GROUP A STREP CULTURE Routine 11/21/2018 9:25 EDT documented in this encounter Results * PHARYNGITIS CULTURE (11/21/2018 9:25 EDT) Result Mod STREPTOCOCCUS, BETA HEMOLYTIC GROUP A (STREPTOCOCCUS PYOGENES) 11/22/2018 13:12 EDT [facility] Specimen of unknown material (specimen) ENTIRE THROAT / Unknown 11/21/2018 9:25 EDT 11/21/2018 10:17 EDT Comment:Specimen submitted o n a flocked swab. Benita Sol MD MICROBIOLOGY - GENER AL ORDERABLES [facility] [address] [place] [address] documented in this encounter Visit Diagnoses Diagnosis Pharyngitis, unspecified etiology- Primary documented in this encounter Administered Medications Inactive Administered Medications - up to 3 most recent administrations Medication Order MAR Action Action Date Dose Rate Site dexaMETHasone (DECADRON) injection 10 mg 10 mg, oral, NOW X1, 1 dose, On Tue11/21/18 at 0945, STAT Given 11/21/2018 9:43 EDT 10 mg oxyCODONE (ROXICODONE) solution 5 mg 5 mg, oral, NOW X1, 1 dose, On Tue11/21/18 at 0945, STAT Given 11/21/2018 9:43 EDT 5 mg documented in this encounter Active and Recently Administered Medications Times are shown in EDT. Scheduled Medication Order 11/19/2018 11/20/2018 11/21/2018 dexaMETHasone (DECADRON) injection 10 mg (COMPLETED) 10 mg, oral, NOW X1, 1 dose, On Tue11/21/18 at 0945, STAT 0943 (Given - Provid er: Judi Gomes, MARCELO) oxyCODONE (ROXICODONE) solution 5 mg (COMPLETED) 5 mg, oral, NOW X1, 1 dose, On Tue11/21/18 at 0945, STAT 0943 (Given - Provid er: Judi Gomes, MARCELO) documented in this encounter Care Teams Tube Molder Fiberglass Relationship Specialty Start Date End Date Benita Shafer NP PCP - General 08/22/18 06/17/19 documented as of this encounter
--- OUTSIDE RECORDS SUMMARY | 2024-01-02 06:21 | XMS_ITS | Encounter Summary ---
Author Organization [facility] Address [address] [place] [address] Care Team Providers Care Airline Counter Agent Name Role Phone Benita Shafer RELIEF MASTER Primary Care Provider [phone] Encounter Details Date Type Department Care Team (Latest Contact Info) Description 11/03/2018 10:39 EDT - 11/03/2018 23:59 EDT Hospital Encounter [facility] [address] [place] [address] Jonas Ojeda MD [address] [place] [address] [address] Discharge Disposition: Auto Discharge Social [...] skin at bedtime. 11/26/2019 lancets One Touch [employer] or other brand compatible with lancing device and covered by patient's insurance. 100 Each 2 10/19/2018 10/01/2019 lidocaine 5 % (LIDODERM) 5 % patch To area of pain, apply for 12 hours on, then 12 hours off. Some insurance companies do not cover this medication. There is an owkr-apw-ximcfwk cream or an otbq-uza-htyxaex patch with a lower concentration that is [...] [facility] - [address] [phone] Carrington Calderon MD 1 [facility] 1 [place] [phone] 02/27/2024 8:[address] [facility] Sleep Program - [address] [phone] Dwight Colbert [address] [place] [address] 02/29/2024 10:30 EDT Appointment [facility] Radiology Nuclear Medicine and PET - [address] [phone] 02/29/2024 14:30 EDT Appointment [facility] Radiology Nuclear Medicine and PET [address] [phone] 03/01/2024 8:00 EDT Appointment [facility] Radiology Nuclear Medicine and PET [address] [phone] 03/01/2024 9:30 EDT Appointment [facility] Radiology Nuclear Medicine and PET [address] [address] documented as of this encounter Procedures Procedure Name Priority Date/Time Associated Diagnosis Comments T4, FREE REFLEX Routine 11/03/2018 10:47 EDT T3, TOTAL Routine 11/03/2018 10:47 EDT documented in this encounter Results * T3, TOTAL (11/03/2018 10:47 EDT) T3, Total 111 97 - 169 ng/dl 11/03/2018 14:02 EDT [facility] BLOOD SPECIMEN / Unknown 11/03/2018 10:47 EDT 11/03/2018 11:17 EDT Jonas Ojeda MD CHEMISTRY & BLOOD GA S ORDERABLES [facility] [address] [place] [address] * T4, FREE REFLEX (11/03/2018 10:47 EDT) T4, Free Reflex 1.2 0.8 - 2.2 ng/dl 11/03/2018 13:02 EDT [facility] BLOOD SPECIMEN / Unknown 11/03/2018 10:47 EDT 11/03/2018 11:17 EDT Jonas Ojeda MD CHEMISTRY & BLOOD GA S ORDERABLES [facility] [address] [place] [address] documented in this encounter Visit Diagnoses Not on filedocumented in this encounter Care Teams Airline Counter Agent Relationship Specialty Start Date End Date Benita Shafer NP PCP - General 08/22/18 06/17/19 documented as of this encounter
--- OUTSIDE RECORDS SUMMARY | 2024-01-02 06:22 | XMS_ITS | Encounter Summary ---
Author Organization [facility] Address [address] [place] [address] Care Team Providers Care National Account Representative Name Role Phone None, Provider Primary Care Provider Unavailabl e Reason for Visit * Reason Comments Cough Encounter Details Date Type Department Care Team (Latest Contact Info) Description 03/08/2016 14:28 EDT - 03/08/2016 16:[address] [facility] - [address] [address] Scar Marquez MD 0 [place] [phone] Unknown, ProviderMD Leukocytosis, unspecified type (Primary Dx); [...] - 03/08/2016 1654 EDT Report given to [place] [facility] patient transported to [facility] ED for further evaluation IV infusing. * [...] the legs or lungs. She has used gacf-ted-sujtmta Robitussin and Tylenol with little improvement. She [...] She did take a plane ride to [place] in January of this year. She has [...] 09/04/201502/18, 08/19. Followed by Dr. López[facility] in [facility] ??? Family history of rheumatoid arthritis 09/04/2015 [...] approx 2012 - had SI, treated at [place]. Marijuana prn to help with stress/anxiety sx. [...] Neg Neg Ketones Trace (A) Neg Specific [place] >=1.030 1.001 - 1.035 Blood 1+ (A) Neg pH 5.5 4.6 - 8.0 Protein Trace (A) Neg Urobilinogen 0.2 0.2 - 1.0 E.U./dl Nitrite Neg Neg Leuk Esterase Neg Neg Tech ID [id number] Radiology orders: None Imaging Results CHEST PA [...] preliminary report dictated by Dr. Madhuri Wolf, resident physician, and has not been finalized by an [...] preliminary report dictated by Dr. Madhuri Wolf, resident physician, and has not been finalized by an [...] preliminary report dictated by Dr. Madhuri Wolf, resident physician, and has not been finalized by an [...] other diagnoses. She is transferred to the [facility] emergency department now in stable condition. IV [...] of further medications. Upon departure from [facility], the patient's pain was 9 on a zero to ten scale. Condition at departure from the [facility] : Stable MDM Signed: Sacr Marquez MD 03/08/2016 16:48 * Naomi Ferrer, [...] insurance. * Jeanne Shea RN - 03/08/2016 1433 EDT Bed: [facility] Expected date: Expected time: Means of arrival: Comments: HOLD documented in this encounter Plan of Treatment Upcoming Encounters Date Type Department Care Team (Late st Contact Info) Description 02/21/2024 9:[address] [facility] Adult Primary [facility] - [address] [phone] Carrington Calderon MD [address] [place] [phone] 02/27/2024 8:[address] [facility] Sleep Program - [address] [address] Dwight Colbert [address] [place], [place] [phone] 02/29/2024 10:30 EDT Appointment [facility] Radiology Nuclear Medicine and PET - [address] [address] 02/29/2024 14:30 EDT Appointment [facility] Radiology Nuclear Medicine and PET - [address] [address] 03/01/2024 8:00 EDT Appointment [facility] Radiology Nuclear Medicine and PET - [address] [address] 03/01/2024 9:30 EDT Appointment [facility] Radiology Nuclear Medicine and PET [address] [address] documented as of this encounter Procedures Procedure [...] 9:47 EDT) 03/10/2016 9:47 EDT Scan 2 Power Tong Operator PROCEDURE/MINOR BRAULIO GICAL ORDERABLES * ED/URGENT CARE ADD-ON (03/09/2016 13:00 EDT) Tests to be added URINE TEST 03/09/2016 12:[address] [facility] Number for problems [id number] (URGENT CARE) 03/09/2016 12:[address] [facility] Comment:Performed at [facility], [place], [place] TOPOGRAPHY UNKNOWN / Unknown 03/09/2016 13:00 EDT 03/09/2016 13:07 EDT Scar Marquez MD HEMATOLOGY & PF4 O RDERABLES Performing Organization Address City/[facility] Co de Phone Number [facility] [address] [place] [address] * TEST, URINE (03/08/2016 16:25 EDT) Result- Test, Ur Neg Neg 03/09/2016 13:[address] [facility] Comment: NOTE: False negative results may occur in women who are beyond 5-8 weeks gestation. Diagnosis of should be based on a correlation of test results with typical clinical signs and symptoms. Performed at [facility], [place], [place] URINE / Unknown 03/08/2016 1 6:25 EDT 03/09/2016 13:06 EDT Scar Marquez MD URINALYSIS ORDERAB LES Performing Organization Address City/[facility]/ZIP Co de Phone Number [facility] [address] [place] [address] * (ABNORMAL) URINE MICROSCOPIC ONLY (03/08/2016 16:25 EDT) WBC, UA less than 1 0 - 5 /HPF 03/08/2016 17:[address] [facility] RBC, UA less than 1 0 - 5 /HPF 03/08/2016 17:24 [facility] Squam Epithel, UA Many(A) None seen /HPF 03/08/2016 17:24 [facility] Renal Epithel, UA None seen None seen /HPF 03/08/2016 17:[address] [facility] Bacteria, UA None seen None seen /HPF 03/08/2016 17:[address] [facility] Crystals, UA None seen /HPF 03/08/2016 17:24 [facility] Hyaline Casts, UA None seen /LPF 03/08/2016 17:24 [facility] UA Comment Microscopic results 03/08/2016 16:31 [facility] Comment: are unreliable on urines unrefrig >2hrs or refrig >8hrs. Mucus, UA Present 03/08/2016 17:[address] [facility] Comment:Performed at [facility] [place], [place] Urine specimen (specimen) URINE / Unknown 03/08/2016 16:25 EDT 03/08/2016 16:57 EDT Scar Marquez MD URINALYSIS ORDERAB LES [facility] [address] [place] [address] * (ABNORMAL) POCT URINE DIPSTICK (03/08/2016 16:25 EDT) Color DARK YELLOW 03/08/2016 16:[address] [facility] Clarity, UA Clear 03/08/2016 16:[address] [facility] Glucose 2+(A) Neg 03/08/2016 16:27 [facility] Bilirubin Neg Neg 03/08/2016 16:[address] [facility] Ketones Trace(A) Neg 03/08/2016 16:[address] [facility] Specific [place] >=1.030 1.001 - 1.035 03/08/2016 16:[address] [facility] Blood 1+(A) Neg 03/08/2016 16:[address] [facility] pH 5.5 4.6 - 8.0 03/08/2016 16:[address] [facility] Protein Trace(A) Neg 03/08/2016 16:[address] [facility] Urobilinogen 0.2 0.2 - 1.0 E.U./dl 03/08/2016 16:[address] [facility] Nitrite Neg Neg 03/08/2016 16:[address] [facility] Leuk Esterase Neg Neg 03/08/2016 16:[address] [facility] retail helper ID [id number] 03/08/2016 16:[address] [facility] Comment:Test performed at [facility] in [facility] Urine specimen (specimen) URINE / Unknown 03/08/2016 16:25 EDT 03/08/2016 16:27 EDT Scar Marquez MD POINT OF CARE TEST ORDERABLES [facility] [address] [place] [address] * EKG 12-LEAD (03/08/2016 16:14 EDT) 03/08/2016 16:1 4 EDT Narrative [facility] EKG - 03/08/2016 16:24 EDT ? PC Site ? Test Date: ?2016-03-08 Pat Name: ? CRISTY WALKER ? [facility] ? Room: ? 06 Gender: ? F ?Software Team Leader: ?? : ?1985 ? Requested By: JOHNNY Alonzo Order Number: [id number] ? Reading MD: ?? SCAR MARQUEZ MD ? Measurements Intervals ?[place] ? Rate: ? 124 ?P: ?50 MN: ? 130 ?QRS: ?27 QRSD: ? 92 [...] Date: 2016-03-08 Pat Name: CRISTY TALBOT Department: [facility] Room: Gender: F Software Team Leader: : 1985 Requested By: JOHNNY Alonzo Order Number: [id number] Reading MD: SCAR MARQUEZ MD Measurements Intervals [place] Rate: 124 P: 50 MN: 130 QRS: 27 QRSD: 92 T: -14 [...] DEJESUS. Scar Marquez MD CARDIAC ECG ORDERA [facility]S [facility] EKG * CHEST PA AND LATERAL (03/08/2016 [...] preliminary report dictated by Dr. Madhuri Wolf, resident physician, and has not been finalized by an attending radiologist. I have personally reviewed the images and the above interpretation and agree with the findings. Procedure Note Babatudne Arshad MD - 03/08/2016 CHEST PA AND [...] preliminary report dictated by Dr. Madhuri Wolf, resident physician, and has not been finalized by an attending radiologist. I have personally reviewed the images and the above interpretation and agree with the findings. Scar Marquez MD IMG DIAGNOSTIC [place] ORDERABLES * D-DIMER (03/08/2016 15:10 EDT) D-Dimer <200 <230 ng/mL 03/08/2016 15:[address] [facility] Comment: CUTOFF VALUE FOR THE EXCLUSION OF DVT and PE: 230 ng/mL D-dimer units Any use of the age-adjusted cutoff value is a post-analytic modification of this FDA-approved test and is considered off-label use of the test result. [facility] laboratory does not have literature to support the validity of an age-adjusted cutoff for our specific assay. Performed at [place], [place] Blood specimen (specimen) BLOOD SPECIMEN / Unknown 03/08/2016 15:10 EDT 03/08/2016 15:38 EDT Scar Marquez MD HEMATOLOGY & PF4 O RDERABLES [facility] [address] [place] [address] * (ABNORMAL) COMPREHENSIVE METABOLIC PANEL (CMP) (03/08/2016 15:10 [facility]) Potassium 4.5 3.5 - 5.0 mEq/L 03/08/2016 16:07 [facility] Sodium 137 136 - 145 mEq/L 03/08/2016 16:07 [facility] Chloride 99 96 - 110 mEq/L 03/08/2016 16:07 [facility] CO2 27 24 - 32 mEq/L 03/08/2016 16:07 [facility] Total Alkaline Phosphatase 122 38 - 126 U/L 03/08/2016 16:07 [facility] Bilirubin, Total <0.5 <1.4 mg/dl 03/08/20 16 16:07 [facility] AST 16 15 - 46 U/L 03/08/2016 16:07 [facility] ALT 17 <53 U/L 03/08/2016 16:07 [facility] Albumin 3.9 3.4 - 4.9 g/dl 03/08/2016 16:07 [facility] Total Protein 7.1 6.3 - 8.2 g/dl 03/08/2016 16:07 [facility] Creatinine 0.50(L) 0.52 - 1.04 mg/dl 03/08/2016 16:07 [facility] GFR, Calculated 130 >60 ml/min/1.7 3m2 03/08/2016 16:07 [facility] Comment: eGFR calculated using CKD-EPI equation for non Americans. Multiply eGFR by 1.16 for Americans. BUN 9(L) 10 - 26 mg/dl 03/08/2016 16:07 [facility] Calcium 9.7 8.5 - 10.5 mg/dl 03/08/2016 16:07 [facility] Calculated Calcium 10.2 8.5 - 10.5 mg/dl 03/08/2016 16:07 [facility] Glucose, Serum 278(H) 70 - 100 mg/dl 03/08/2016 16:07 [facility] Fasting? Unknown 03/08/2016 15:39 [facility] Comment:Performed at [facility], [place], [place] Blood specimen (specimen) BLOOD SPECIMEN / Unknown 03/08/2016 15:10 EDT 03/08/2016 15:38 EDT Scar Marquez MD CHEMISTRY & BLOOD GAS ORDERABLES [facility] [address] [place] [address] * (ABNORMAL) HEMAGRAM AND DIFFERENTIAL (03/08/2016 15:10 EDT) WBC 21.39(H) 4.0 - 12.4 K/cmm 03/08/2016 15:50 [facility] RBC 4.87 3.86 - 5.04 M/cmm 03/08/2016 15:50 [facility] Hemoglobin 15.2 11.6 - 15.2 gm/dl 03/08/2016 15:50 [facility] HCT 42.5 34.9 - 44.4 % 03/08/2016 15:50 [facility] MCV 87 81 - 98 fl 03/08/2016 15:50 [facility] MCH 31.2 26.7 - 33.3 pg 03/08/2016 15:50 [facility] MCHC 35.8 32.1 - 35.9 gm/dl 03/08/2016 15:50 [facility] RDW-CV 12.4 11.7 - 14.6 % 03/08/2016 15:50 [facility] RDW-SD 39.1 37.6 - 50.3 fl 03/08/2016 15:50 [facility] PLT 407(H) 141 - 377 K/cmm 03/08/2016 15:50 [facility] MPV 10.2 9.5 - 12.7 fl 03/08/2016 15:50 [facility] Neutrophils 71.0 % 03/08/2016 16:07 [facility] % Bands 3.0 % 03/08/2016 16:07 [facility] Lymphocytes 19.0 % 03/08/2016 16:07 [facility] % Atyp Lymphs 1.0 % 03/08/2016 16:07 [facility] Monocytes 4.0 % 03/08/2016 16:07 [facility] Eosinophils 2.0 % 03/08/2016 16:07 [facility] ABS Neutrophils 15.19(H) 2.20 - 8.85 K/cmm 03/08/2016 16:07 [facility] ABS Bands 0.64 K/cmm 03/08/2016 16:07 [facility] ABS Lymphs 4.06(H) 1.09 - 3.30 K/cmm 03/08/2016 16:07 [facility] ABS Atyp Lymphs 0.21 K/cmm 6 16:07 [facility] ABS Monocytes 0.86(H) 0.1 - 0.8 K/cmm 03/08/2016 16:07 [facility] ABS Eosinophils 0.43 0.03 - 0.61 K/cmm 03/08/2016 16:07 [facility] Type of Diff: Manual 03/08/2016 16:07 [facility] Comment:Performed at [place], [place] Blood specimen (specimen) BLOOD SPECIMEN / Unknown 03/08/2016 15:10 EDT 03/08/2016 15:38 EDT Scar Marquez MD PACKAGES & DNA PRO BE ORDERABLES [facility] [address] [place] [address] * RAPID STREP (03/08/2016 14:40 EDT) Rapid Strep A Screen Neg 03/08/2016 15:09 [facility] Comment:Performed at [place], [place] Specimen of unknown material (specimen) TOPOGRAPHY UNKNOWN / Unknown 03/08/2016 14:40 EDT 03/08/2016 14:58 EDT Scar Marquez MD MICROBIOLOGY - GEN ERAL ORDERABLES Performing Organization Address City/[facility]/ZIP Co de Phone Number [facility] [address] [place] [address] * PHARYNGITIS CULTURE (03/08/2016 14:40 EDT) Result No group A beta streptococci isolated. Usual devin-pharyngeal candis. 03/10/2016 8:[address] [facility] Specimen of unknown material (specimen) ENTIRE THROAT / Unknown 03/08/2016 14:40 EDT 03/08/2016 19:07 EDT Comment:Specimen submitted o n a flocked swab. Scar Marquez MD MICROBIOLOGY - GEN ERAL ORDERABLES Performing Organization Address [facility] Co de Phone Number [facility] [address] [place] [address] documented in this encounter Visit Diagnoses Diagnosis Leukocytosis, unspecified type- Primary Sore throat Acute pharyngitis Cough Tachycardia Tachycardia, unspecified documented in this encounter Administered Medications Inactive Administered Medications - up to 3 most recent administrations Medication Order MAR Action Action Date Dose Rate Site acetaminophen (TYLENOL) tablet 650 mg 650 mg, oral, NOW X1, 1 dose, On 03/08/16 at 1645, Routine Given 03/08/2016 16:50 EDT [...] Routine 1650 (Given - Provid er: Genie Crowley RN) albuterol (ACCUNEB) nebulizer solution 2.5 mg (COMPLETED) 2.5 mg, nebulization, NOW X1, 1 dose, On 03/08/16 at 1515, Routine 1524 (Given - Provid [...] 03/08/2016 documented in this encounter Care Teams National Account Representative Relationship Specialty Start Date End Date None, Provider PCP - General 03/08/16 08/21/18 documented as of this encounter
--- OUTSIDE RECORDS SUMMARY | 2024-01-02 06:22 | XMS_ITS | Encounter Summary ---
Author Organization [facility] Address [address] [place] [address] Care Team Providers Care Dramatic Arts Historian Name Role Phone Benita Shafer TUTOR Primary Care Provider [phone] Reason for Visit * Reason Onset Date Comments Follow-up 09/06/2018 Encounter Details Date Type Department Care Team (Late st Contact Info) Description 09/06/2018 Telephone [facility] - [address] [address] Valencia Davila, RN [address] [address] Follow-up Social History Tobacco Use Types Packs/Day [...] to follow up with her Opthalmologist in [facility], Per Dr Blanco we would like to start patient on [...] [facility] Adult Primary Care - [address] [phone] Carrington Calderon MD [address] [phone] 02/27/2024 8:30 EDT Telemedicine [facility] Sleep Program - [address] [phone] Dwight Colbert [address] [place] [phone] 02/29/2024 10:30 EDT Appointment [facility] Radiology Nuclear Medicine and PET - [facility] [address] [place], [place] [address] 02/29/2024 14:30 EDT Appointment [facility] Radiology Nuclear Medicine and PET - [address] [phone] 03/01/2024 8:00 EDT Appointment [facility] Radiology Nuclear Medicine and PET - [address] [phone] 03/01/2024 9:30 EDT Appointment [facility] Radiology Nuclear Medicine and PET - [address] [address] documented as of this encounter Visit Diagnoses Not on filedocumented in this encounter Care Teams Dramatic Arts Historian Relationship Specialty Start Date End Date Benita Shafer NP PCP - General 08/22/18 06/17/19 documented as of this encounter
--- OUTSIDE RECORDS SUMMARY | 2024-01-02 06:22 | XMS_ITS | Encounter Summary ---
Author Organization [facility] Address [address] [place] [address] Care Team Providers Care Low Voltage Electrician Name Role Phone None, Provider Primary Care Provider Unavailabl e Reason for Visit * Reason Comments Eye Problem woke yesterday am wi th right eye lid swelling, worsening today, now with blurred vision. denies drainage. Encounter Details Date Type Department Care Team (Late st Contact Info) Description 07/28/2016 20:50 EST - 07/28/2016 22:56 EST Emergency [facility] Emergency Department - Main [address] [address] Fran Barbosa MD [address] [place] [address], Level [address] [place] [address] Emergency, MD Ekaterina Corneal abrasion, [...] complications-E11.9[ICD-10-CM] F17.210 Nicotine dependence, cigarettes, uncomplicated-F17.210[ICD-10-CM] Z79.84 intermediate manager (current) use of oral hypoglycemic drugs-Z79.84[ICD-10-CM] Z88.6 [...] sent through Care Everywhere. * CORNEAL SCRATCHES (SWEDISH) documented in this encounter Medications at Time [...] Notes * Ann Martínez RN - 07/28/2016 3134 EST Ordered for discharge. Aftercare instructions, follow [...] [facility] Adult Primary Care - [address] [phone] Carrington Calderon MD [address] [place] [phone] 02/27/2024 8:30 EDT Telemedicine [facility] Sleep Program - [address] [phone] Dwight Colbert [address] [place] [phone] 02/29/2024 10:30 EDT Appointment [facility] Radiology Nuclear Medicine and PET - [address] [phone] 02/29/2024 14:30 EDT Appointment [facility] Radiology Nuclear Medicine and PET [address] [phone] 03/01/2024 8:00 EDT Appointment [facility] Radiology Nuclear Medicine and PET - [address] [phone] 03/01/2024 9:30 EDT Appointment [facility] Radiology Nuclear Medicine and PET - [address] [address] documented as of this encounter Visit Diagnoses [...] On Tue07/28/16 at 2245 2255 (Given - [facility] er: Ann Martínez RN) documented in this encounter Care Teams Low Voltage Electrician Relationship Specialty Start Date End Date None, Provider PCP - General 03/08/16 08/21/18 documented as of this encounter
--- OUTSIDE RECORDS SUMMARY | 2024-01-02 06:22 | XMS_ITS | Encounter Summary ---
Author Organization [facility] Address [address] [place] [address] Care Team Providers Care Bandage Winding Machine Operator Name Role Phone Benita Shafer GUSTAVO Primary Care Provider [phone] Encounter Details Date Type Department Care Team (Late st Contact Info) Description 10/24/2018 14:34 EDT - 10/24/2018 23:59 EDT Hospital Encounter [facility] [address] [place] [address] Ana Coronado MD 111 [facility], Level [address] [place] [address] Discharge Disposition: Auto Discharge Social [...] [facility] - [address] [address] Carrington Calderon MD 1 [facility] [address] [place] [phone] 02/27/2024 8:[address] [facility] Sleep Program - [address] [phone] Dwight Colbert [address] [place] [phone] 02/29/2024 10:30 EDT Appointment [facility] Radiology Nuclear Medicine and PET - [address] [phone] 02/29/2024 14:30 EDT Appointment [facility] Radiology Nuclear Medicine and PET - [address] [phone] 03/01/2024 8:00 EDT Appointment [facility] Radiology Nuclear Medicine and PET - [address] [phone] 03/01/2024 9:30 EDT Appointment [facility] Radiology Nuclear Medicine and PET - [address] [phone] documented as of this encounter Visit Diagnoses Not on filedocumented in this encounter Care Teams Bandage Winding Machine Operator Relationship Specialty Start Date End Date Benita Shafer NP PCP - General 08/22/18 06/17/19 documented as of this encounter
--- OUTSIDE RECORDS SUMMARY | 2024-01-02 06:22 | XMS_ITS | Encounter Summary ---
Author Organization [facility] Address [address] [place] [address] Care Team Providers Care Manager Relationship Name Role Phone PeytonNimisha martinez Kelly [employer] Primary Care Provider [phone] Reason for Visit * Reason Comments Miscarriage Patient states.10 w eeks and last Tuesday found out no heart beat thus she states, I am having a miscarriage Vaginal bleeding X 1 weeks Lots of cramps Encounter Details Date Type Department Care Team (Late st Contact Info) Description 08/31/2015 14:05 EDT - 08/31/2015 20:53 EDT Emergency [facility] Emergency Department - [address] [address] Sonal Rand, PA-C [address] [phone] Danny Victoria MD Macnee, Lauren K, PA-Shiva 111 [facility], Level 1 [place] [address] Emergency, MD Ekaterina Miscarriage (Primary [...] Sonal Rand - 08/31/2015 19:32 EDT Call [facility]LO[facility] HUMAN RESOURCES DIRECTOR clinic tomorrow to arrange for follow-up in the next couple of days as instructed by GLOBAL HUMAN RESOURCES DIRECTOR resident Percocet can be used for significant pain but should be used sparingly. Consider using iddd-sfe-[id number] stool softener if using this medication to [...] 8/10 and sharp. Shewas previously seen at [facility] in OBGYN clinic and underwent a TVUS [...] D&C. The patient was transfer to a BRAKE DRUM MOLDER bed and was reportedto pass a large [...] Grandmother ??? Diabetes Paternal Grandfather OB History BRAKE DRUM MOLDER History OB History Para Term AB SAB [...] identified. These findings are consistent with demise. GLOBAL HUMAN RESOURCES DIRECTOR consultation and followup with serial beta hCG [...] and advised her to follow up with BRAKE DRUM MOLDER tomorrow. She verbalizes understanding. * Homa Goldsmith [...] history of DM, miscarriage, migraines who presents [facility] ED 10 weeks with a 6 day history of a known pole with no cardiac activity. She underwent suction aspiration for a prior miscarriage in the ED February 2015. The patient arrives [facility] ED with severe pelvic pain, vomiting and [...] Heart rate is abnormal. Negative for murmur. [place] Protocol: risks and benefits discussed consent given [...] who gets her care at [facility] and had 10 week ultrasound 6 days [...] known miscarriage at 10 weeks Discussed with GLOBAL HUMAN RESOURCES DIRECTOR who recommend repeat ultrasound Ultrasound shows evidence of incomplete Labs unremarkable. Discussed with GLOBAL HUMAN RESOURCES DIRECTOR resident at 6:15, they will perform a suction D&C here under conscious sedation 7:15 PM-procedure is completed, sounds as if patient may have aborted large amount of material justprior to suction procedure. Uncomplicated procedure otherwise She is now recovering from ketamine sedation Remains tachycardic and will continue with IV hydration, now on her third liter. Given Compazine for vomiting Discussed follow-up with GLOBAL HUMAN RESOURCES DIRECTOR resident, she is to contact [facility]LO[facility] HUMAN RESOURCES DIRECTOR clinic tomorrow morning and alexis arrange for [...] the Emergency Department: Stable PCP: Nimisha Clifton [facility] Danny Victoria was consulted and agrees with treatment plan. 08/31/2015 18:14 No flowsheet data found. * Homa Goldsmith, RN - 08/31/2015 5472 EDT OB in with pt. * Homa [...] Visit [facility] Adult Primary Care - [place] [address] [place], [place] [address] Carrington Calderon MD 1 [facility] Level 1 [place] [phone] 02/27/2024 8:30 EDT Telemedicine [facility] Sleep Program - [address] [place] [address] [place] [address] Dwight Colbert [address] [place] [address] 02/29/2024 10:30 EDT Appointment [facility] Radiology Nuclear Medicine and PET - [address] [address] 02/29/2024 14:30 EDT Appointment [facility] Radiology Nuclear Medicine and PET [address] [phone] 03/01/2024 8:00 EDT Appointment [facility] Radiology Nuclear Medicine and PET - [address] [phone] 03/01/2024 9:30 EDT Appointment [facility] Radiology Nuclear Medicine and PET [address] [address] documented as of this encounter Procedures Procedure [...] ED SEDATION PROCEDURE (09/01/2015 0:25 EDT) Narrative [facility] EKG - 09/01/2015 0:25 EDT Danny Victoria MD ? 09/01/2015 ??0:25 I, Georgie Lindsey, am scribing for Danny Victoria MD while he/she is personally performing the service. Georgie César 08/31/2015 18:12 I performed a history and [...] rate is abnormal. ??Negative for murmur. ? [place] Protocol: risks and benefits discussed consent given [...] PROCEDURE/MINOR BRAULIO GICAL ORDERABLES Performing Organization Address City/[facility]/ZIP Co de Phone Number [facility] EKG * PREPARE RED BLOOD CELLS (08/31/2015 21:22 EDT) Product Code [id number] [facility]OD [facility] Comment:E0336 -1 RED BLOOD CELLS, Leukocytes Reduced Donor Number [id number] U [facility] BLOOD [facility] Unit ABO B [facility] Unit Rh NEG [facility] Unit Status RE^Released From Crossmatch [facility] BLOOD BANK Product Expiration Date [id number] [facility] BLOOD BANK Unit Blood Type Code 1700 [facility] BLOOD BANK Coding System [id number] [facility] 08/31/2015 21:2 2 EDT Felicita Espinal MD BLOOD BANK ORDERABL ES Performing Organization Address City/[facility]/ZIP Co de Phone Number [facility] BLOOD BANK * ANTIBODY IDENTIFICATION (08/31/2015 19:17 EDT) Antibody Identification Anti-D; patient recd RhIg [facility] BLOOD BANK 08/31/2015 19:1 7 EDT Felicita Espinal MD BLOOD BANK TESTS Performing Organization Address City/[facility]/ZIP Co de Phone Number [facility] BLOOD BANK * RAD US OB [...] identified. These findings are consistent with demise. GLO[employer] HUMAN RESOURCES DIRECTOR consultation and followup with serial beta hCG [...] identified. These findings are consistent with demise. GLO[employer] HUMAN RESOURCES DIRECTOR consultation and followup with serial beta hCG is suggested. These findings were discussed with SONAL DAWSON by Dr. Zac Benjamin on 08/31/2015 5:30 PM. I have personally reviewed the images and the above interpretation and agree with the findings. Sonal Rand PA-C IM US ORDERABLES * TYPE AND SCREEN (08/31/2015 16:20 EDT) ABO B [facility] Rh Factor Negative [facility] Antibody Screen Positive [facility] BLOOD B[facility] Specimen Expires: 09/03/2015 @ 23:59 [facility] BLOOD [facility] Blood specimen (specimen) 08/31/2015 16:20 EDT Felicita Espinal MD BLOOD BANK TESTS [facility] BLOOD [facility] * (ABNORMAL) BASIC METABOLIC PANEL (08/31/2015 14:45 EDT) Sodium 140 136 - 145 mEq/L 08/31/2015 15:17 [facility] Potassium 4.1 3.5 - 5.0 mEq/L 08/31/2015 15:17 [facility] Chloride 106 96 - 110 mEq/L 08/31/2015 15:17 [facility] CO2 24 24 - 32 mEq/L 08/31/2015 15:17 [facility] BUN 9(L) 10 - 26 mg/dl 08/31/2015 15:17 [facility] Creatinine 0.41(L) 0.52 - 1.04 mg/dl 08/31/2015 15:17 [facility] GFR, Calculated 139 >60 ml/min/1.7 3m2 08/31/2015 15:17 [facility] Comment: eGFR calculated using CKD-EPI equation for non Americans. Multiply eGFR by 1.16 for Americans. Calcium 9.7 8.5 - 10.5 mg/dl 08/31/2015 15:17 [facility] Calculated Calcium 10.1 8.5 - 10.5 mg/dl 08/31/2015 15:17 [facility] Glucose, Serum 199(H) 70 - 100 mg/dl 08/31/2015 15:17 [facility] Fasting? Unknown 08/31/2015 15:02 [facility] Blood specimen (specimen) BLOOD SPECIMEN / Unknown 08/31/2015 14:45 EDT 08/31/2015 15:02 EDT Sonal Rand PA-C CHEMISTRY & BLOOD G ORDERABLES [facility] [address] [place] [address] * (ABNORMAL) HEMAGRAM AND DIFFERENTIAL (08/31/2015 14:45 EDT) WBC 18.76(H) 4.0 - 12.4 K/cmm 08/31/2015 15:09 [facility] RBC 4.70 3.86 - 5.04 M/cmm 08/31/2015 15:09 [facility] Hemoglobin 14.3 11.6 - 15.2 gm/dl 08/31/2015 15:09 [facility] HCT 40.4 34.9 - 44.4 % 08/31/2015 15:09 [facility] MCV 86 81 - 98 fl 08/31/2015 15:09 [facility] MCH 30.4 26.7 - 33.3 pg 08/31/2015 15:09 [facility] MCHC 35.4 32.1 - 35.9 gm/dl 08/31/2015 15:09 [facility] RDW-CV 12.2 11.7 - 14.6 % 08/31/2015 15:09 [facility] RDW-SD 38.8 37.6 - 50.3 fl 08/31/2015 15:09 [facility] PLT 421(H) 141 - 377 K/cmm 08/31/2015 15:09 [facility] MPV 9.5 9.5 - 12.7 fl 08/31/2015 15:09 [facility] % Neutrophils 70.6 % 08/31/2015 15:09 [facility] % Lymphocytes 19.8 % 08/31/2015 15:09 [facility] % Monocytes 6.1 % 08/31/2015 15:09 [facility] % Eosinophils 2.6 % 08/31/2015 15:09 [facility] % Basophils 0.4 % 08/31/2015 15:09 [facility] % Immature Grans 0.5 % 08/31/2015 15:09 [facility] ABS Neutrophils 13.26(H) 2.20 - 8.85 K/cmm 08/31/2015 15:09 EDT [facility] ABS Lymphs 3.71(H) 1.09 - 3.30 K/[facility] 08/31/2015 15:09 EDT [facility] ABS Monocytes 1.14(H) 0.1 - 0.8 K/[facility] 08/31/2015 15:09 EDT [facility] ABS Eosinophils 0.48 0.03 - 0.61 K/[facility] 08/31/2015 15:09 EDT [facility] ABS Basophils 0.08 0.01 - 0.11 K/[facility] 08/31/2015 15:09 [facility] ABS Immature Grans 0.09(H) 0 - 0.06 K/[facility] 08/31/2015 15:09 [facility] Type of Diff: Automated 08/31/2015 15:09 [facility] Blood specimen (specimen) BLOOD SPECIMEN / Unknown 08/31/2015 14:45 EDT 08/31/2015 15:02 EDT Sonal Rand PA-C PACKAGES & DNA PROB E ORDERABLES [facility] [address] [place] [address] documented in this encounter Visit Diagnoses Diagnosis [...] Dispensed Refills Start Date End Date [facility] by misc (non-drug; combo route) route. 03/08/2016 [...] STAT 2051 (Given - Provid er: Homa Goldsmith, MARCELO) prochlorperazine edisylate (COMPAZINE) injection 10 mg (COMPLETED) [...] 08/31/2015 documented in this encounter Care Teams Manager Relationship Relationship Specialty Start Date End Date Nimisha Clifton NP 1 [facility] 1 [place] [address] PCP - General 08/28/15 03/07/16 documented as of this encounter
--- OUTSIDE RECORDS SUMMARY | 2024-01-02 06:22 | XMS_ITS | Encounter Summary ---
Author Organization [facility] Address [address] [place] [address] Care Team Providers Care Band Tier Name Role Phone Benita Shafer CONTACT LENS EDGE BUFFER Primary Care Provider [phone] Encounter Details Date Type Department Care Team (Late st Contact Info) Description 10/24/2018 Phlebotomy Only [facility] - [address] [address] Immigration Officer, Outpatient Complication of in first trimester (Primary [...] [facility] - [address] [address] Carrington Calderon MD 1 [facility] Level 1 [place] [address] 02/27/2024 8:30 EDT Telemedicine [facility] Sleep Program - [address] [address] [place] [address] Dwight Colbert [address] [place] [address] 02/29/2024 10:30 EDT Appointment [facility] Radiology Nuclear Medicine and PET - [address] [address] 02/29/2024 14:30 EDT Appointment [facility] Radiology Nuclear Medicine and PET - [address] [address] 03/01/2024 8:00 EDT Appointment [facility] Radiology Nuclear Medicine and PET [address] [phone] 03/01/2024 9:30 EDT Appointment [facility] Radiology Nuclear Medicine and PET [address] [address] documented as of this encounter Procedures Procedure Name Priority Date/Time Associated Diagnosis Comments QUANT BETA HCG, Routine 10/24/2018 14:42 EDT Complication of in first trimester documented in this encounter Results * (ABNORMAL) QUANT BETA HCG, (10/24/2018 14:42 EDT) Quant Beta HCG, Preg 1,286(H) <5 mIU/ml 10/24/2018 15:40 EDT [facility] Comment: Reference Range: Negative = <5 Indeterminate = 5-25 recommend repeat in 48 hours. Positive = >25 The results of this assay can be falsely lowered due to the consumption of Biotin. Blood specimen (specimen) BLOOD SPECIMEN / Unknown 10/24/2018 14:42 EDT 10/24/2018 14:54 EDT Ana Coronado MD CHEMISTRY & BLOOD GAS ORDERABLES [facility] [address] [place] [address] documented in this encounter Visit Diagnoses Diagnosis Complication of in first trimester- Primary documented in this encounter Care Teams Band Tier Relationship Specialty Start Date End Date Benita Shafer NP PCP - General 08/22/18 06/17/19 documented as of this encounter
--- OUTSIDE RECORDS SUMMARY | 2024-01-02 06:22 | XMS_ITS | Encounter Summary ---
Author Organization [facility] Address [address] [place] [address] Care Team Providers Care Finisher Plate Name Role Phone None, Provider Primary Care [...] 20:10 EDT - 09/28/2016 21:29 EDT Emergency [facility] Emergency Department - Main [address] [address] Benita Sol MD [address] [place] [address], Level 1 [place] [phone] Emergency, MD Ekaterina Acute bilateral low back [...] complications-E11.9[ICD-10-CM] F17.210 Nicotine dependence, cigarettes, uncomplicated-F17.210[ICD-10-CM] Z79.84 penitentiary (current) use of oral hypoglycemic drugs-Z79.84[ICD-10-CM] Z88.6 Allergy status to analgesic agent status-Z88.6[ICD-10-CM] documented in this encounter Discharge Instructions * Discharge Instructions* Benita Sol MD - 09/28/2016 21:09 EDT Take Flexeril, one tablet before bed for muscle spasms/back pain as needed. * Attachments The following attachments cannot be sent through Care Everywhere. * LUMBAR PAIN: ACUTE: EXERCISES ([place]ET[place]ESE) documented in this encounter Medications at Time [...] Visit [facility] Adult Primary Care - [address] [phone] Carrington Calderon MD [address] [phone] 02/27/2024 8:30 EDT Telemedicine [facility] Sleep Program - [address] [address] Dwight Colbert [address] [place] [phone] 02/29/2024 10:30 EDT Appointment [facility] Radiology Nuclear Medicine and PET - [address] [address] 02/29/2024 14:30 EDT Appointment [facility] Radiology Nuclear Medicine and PET - [address] [address] 03/01/2024 8:00 EDT Appointment [facility] Radiology Nuclear Medicine and PET - [address] [phone] 03/01/2024 9:30 EDT Appointment [facility] Radiology Nuclear Medicine and PET - [address] [address] documented as of this encounter Visit Diagnoses [...] 1 dose, On Tue09/28/16 at 2115, STAT 7 (Given - Provid er: Niesha Trejo RN) lidocaine 5 % (LIDODERM) patch 1 Patch 1 Patch, transdermal, Administer over 12 Hours, DAILY, First dose on Tue09/28/16 at 2130, Until Discontinued, STAT 8 (Patch Applied - Provider: Niesha Trejo RN - Comment: left lower back) documented in this encounter Care Teams Finisher Plate Relationship Specialty Start Date End Date None, Provider PCP - General 03/08/16 08/21/18 documented as of this encounter
--- OUTSIDE RECORDS SUMMARY | 2024-01-02 06:22 | XMS_ITS | Encounter Summary ---
Author Organization [facility] Address [address] [place] [address] Care Team Providers Care Manager Assisted Living Name Role Phone Benita Shafer FRONT COUNTER CLERK Primary Care Provider [phone] Encounter Details Date Type Department Care Team (Late st Contact Info) Description 10/24/2018 Orders Only [facility] Women's Services - [address] [phone] Ana Coronado MD 111 [facility] 4 [place] [address] Complication of in first trimester [...] [facility] Care - [address] [address] Carrington Calderon MD 1 [facility] 1 [place] [phone] 02/27/2024 8:30 EDT Telemedicine [facility] Sleep Program - [address] [place] [place] [address] ColbertDwight garner [address] [place] [address] 02/29/2024 10:30 EDT Appointment [facility] Radiology Nuclear Medicine and PET - [address] [phone] 02/29/2024 14:30 EDT Appointment [facility] Radiology Nuclear Medicine and PET [address] [phone] 03/01/2024 8:00 EDT Appointment [facility] Radiology Nuclear Medicine and PET [address] [phone] 03/01/2024 9:30 EDT Appointment [facility] Radiology Nuclear [place] [address] documented as of this encounter Results * (ABNORMAL) QUANT BETA HCG, (10/24/2018 14:42 EDT) [facility] Quant Beta HCG, Preg 1,286(H) <5 mIU/ml 10/24/2018 15:40 EDT [facility] Comment: Reference Range: Negative = <5 Indeterminate = 5-25 recommend repeat in 48 hours. Positive = >25 The results of this assay can be falsely lowered due to the consumption of Biotin. Blood specimen (specimen) BLOOD SPECIMEN / Unknown 10/24/2018 14:42 EDT 10/24/2018 14:54 EDT Ana Coronado MD CHEMISTRY & BLOOD GAS ORDERABLES [facility] [address] [place] [address] documented in this encounter Visit Diagnoses Diagnosis Complication of in first trimester- Primary documented in this encounter Care Teams Manager Assisted Living Relationship Specialty Start Date End Date Benita Shafer NP PCP - General 08/22/18 06/17/19 documented as of this encounter
--- OUTSIDE RECORDS SUMMARY | 2024-01-02 06:22 | XMS_ITS | Encounter Summary ---
Author Organization [facility] Address [address] [place] [address] Care Team Providers Care Section Maintainer Name Role Phone None, Provider Primary Care Provider Unavailabl e Reason for Visit * Reason Comments Cough Sent from [facility], for cough, fever, sore throat x three day, cough in dry, c/o chest pain and headache due to the cough. aox3 lungs sound diminished t/o Encounter Details Date Type Department Care Team (Late st Contact Info) Description 03/08/2016 17:09 EDT - 03/08/2016 23:11 EDT Emergency [facility] Emergency Department - [address] [phone] Broderick Foster MD 111 [facility], Level 1 [place] [phone] Emergency, MD Ekaterina Acute bronchitis, unspecified organism (Primary Dx); Type 2 diabetes mellitus not at goal ([facility]) Discharge Disposition: Home or Self Care Social [...] Use Robitussin-DM cough syrup as needed. Call [facility] primary care, [phone], to arrange for an appointment as soon [...] gait * Nini Schultz RN - 03/08/2016 7279 EDT Blood drawn via butterfly needle per [...] HR-120, BP-90/50, NOTE TAKEN BY DR. FOSTER ([facility]) * Catherine Osullivan - 03/08/2016 1720 EDT TCALL: CRISTY TALBOT, 85, 30YO FEMALE, DMII, NO MEDS X4 MONTHS, NOW RESP. INFECTION, WBC 21,000 GLUC. 273, CXR NEG., HR-120, BP-90/50, NOTE TAKEN BY DR. FOSTER ([facility]) * Catherine Osullivan - 03/08/2016 1720 EDT TCALL: CRISTY TALBOT, 85, 30YO FEMALE, DMII, NO MEDS X4 MONTHS, NOW RESP. INFECTION, WBC 21,000 GLUC. 273, CXR NEG., HR-120, BP-90/50, NOTE TAKEN BY DR. FOSTER ([facility]) * Broderick Foster MD - 03/08/2016 1716 EDT DOS: 03/08/2016 Chief Complaint Patient presents with ??? Cough Sent from [facility], for cough, fever, sore throat x three [...] diarrhea, and constipation. She reports going to [facility] who sent her here due to elevated [...] Value Status Glucose, Fingerstick 163 (*) Final Hospitality Intern ID [id number] Final GLUCOSE, GLUCOMETER - Abnormal Glucose, Fingerstick 239 (*) Final Hospitality Intern ID [id number] Final BACTERIAL CULTURE, BLOOD BACTERIAL CULTURE, BLOOD [...] Pt was instruction to follow up at [facility]. Prior to discharge usual [...] Visit [facility] - [address] [phone] Carrington Calderon MD [address] [place] [address] Level 1 [place] [phone] 02/27/2024 8:30 EDT Telemedicine [facility] Sleep Program - [address] [place] [address] Dwight Colbert [address] [place] [address] 02/29/2024 10:30 EDT Appointment [facility] Radiology Nuclear Medicine and PET - [address] [address] 02/29/2024 14:30 EDT Appointment [facility] Radiology Nuclear Medicine and PET - [address] [phone] 03/01/2024 8:00 EDT Appointment [facility] Radiology Nuclear Medicine and PET [address] [phone] 03/01/2024 9:30 EDT Appointment [facility] Radiology Nuclear Medicine and PET [address] [address] documented as of this encounter Procedures Procedure Name Priority Date/Time Associated Diagnosis Comments GLUCOSE, GLUCOMETER Routine 03/08/2016 2 1:11 EDT BACTERIAL CULTURE, BLOOD Routine 03/08/2016 18:47 EDT BACTERIAL CULTURE, BLOOD Routine 03/08/2016 18:47 EDT GLUCOSE, GLUCOMETER Routine 03/08/2016 1 7:24 EDT documented in this encounter Results * (ABNORMAL) GLUCOSE, GLUCOMETER (03/08/2016 21:11 EDT) Glucose, Fingerstick 239(H) 70 - 100 mg/dl 03/08/2016 21:12 EDT [facility] Hospitality Intern ID [id number] 03/08/2016 21:12 EDT [facility] Comment:[facility] BLOOD SPECIMEN / Unknown 03/08/2016 21:11 EDT 03/08/2016 21:12 EDT Provider Unknown CHEMISTRY & BLOOD GA S ORDERABLES Performing Organization Address [facility]/ZIP Co de Phone Number [facility] [address] [place] [address] * BACTERIAL CULTURE, BLOOD (03/08/2016 18:47 EDT) Result No growth 03/13/2016 8:26 EDT [facility] Blood specimen (specimen) BLOOD SPECIMEN / Unknown 03/08/2016 18:47 EDT 03/08/2016 20:07 EDT Comment:Left~Antecubital Broderick Foster MD MICROBIOLOGY - GENE RAL ORDERABLES Performing Organization Address [facility] Co de Phone Number [facility] [address] [place] [address] * BACTERIAL CULTURE, BLOOD (03/08/2016 18:47 EDT) Result No growth 03/13/2016 8:26 EDT [facility] Blood specimen (specimen) BLOOD SPECIMEN / Unknown 03/08/2016 18:47 EDT 03/08/2016 20:05 EDT Comment:Right~Antecubital Broderick Foster MD MICROBIOLOGY - GENE RAL ORDERABLES Performing Organization Address [facility] Co de Phone Number [facility] [address] [place] [address] * (ABNORMAL) GLUCOSE, GLUCOMETER (03/08/2016 17:24 EDT) Glucose, Fingerstick 163(H) 70 - 100 mg/dl 03/08/2016 17:26 EDT [facility] Hospitality Intern ID [id number] 03/08/2016 17:26 EDT [facility] Comment:[facility] BLOOD SPECIMEN / Unknown 03/08/2016 17:24 EDT 03/08/2016 17:26 EDT Provider Unknown CHEMISTRY & BLOOD GA S ORDERABLES [facility] [address] [place] [address] documented in this encounter Visit Diagnoses Diagnosis Acute bronchitis, unspecified organism- Primary Type 2 diabetes mellitus not at goal ([facility]) Type II or unspecified type diabetes mellitus [...] 60 Minutes, NOW X1, 1 dose, On 03/08/16 at 1845, STAT 1917 (New Bag - Prov ider: Nini Schultz RN)2019 (Completed - Provider: Nini Schultz RN) benzocaine-menthol (CEPACOL) 15-3.6 mg per lozenge 1 Lozenge (COMPLETED) 1 Lozenge, buccal, NOW X1, 1 dose, On Tue03/08/16 at 2145, STAT 2206 (Given - Provid er: Nini Schultz RN) cefTRIAXone (ROCEPHIN) 1,000 mg in sodium chloride (NS MBP) 0.9 % 50 mL IVPB (COMPLETED) 1,000 mg, intravenous, Administer over 30 Minutes, NOW X1, 1 dose, On 03/08/16 at 1845, STAT 1908 (New Bag - Prov ider: Nini Schultz RN)1917 (Completed - Provider: Nini Schultz RN) dextromethorphan-guaifenesin (ROBITUSSIN DM) 10-100 mg/5 mL syrup 10 mL (COMPLETED) 10 mL, oral, NOW X1, 1 dose, On 03/08/16 at 2145, STAT 2206 (Given - Provid er: Nini Schultz RN) HYDROmorphone (PF) (DILAUDID) 1 mg/mL injection 1 mg (COMPLETED) 1 mg, intravenous, NOW X1, 1 dose, On Tue03/08/16 at 2030, STAT 2023 (Given - Provid er: Nini Schultz, MARCELO) insulin glargine (LANTUS SOLOSTAR) injection pen 30 Units (COMPLETED) 30 Units, subcutaneous, NOW X1, 1 dose, On Tue03/08/16 at 2245, STAT 2306 (Given - Provid er: Jose Thompson RN) ondansetron (PF) (ZOFRAN) injection 4 mg (COMPLETED) 4 mg, intravenous, NOW X1, 1 dose, On Tue03/08/16 at 1930, STAT 1955 (Given - Provid er: Nini Schultz RN) sodium chloride 0.9 % BOLUS 2,000 mL (COMPLETED) 2,000 mL, intravenous, NOW X1, 1 dose, On Tue03/08/16 at 1845, STAT 1908 (New Bag - Prov ider: Nini Schultz RN)2209 (Completed - Provider: Nini Schultz RN) documented in this encounter Orders Lab Orders Without Results Count Last Ordered D ate First Ordered Date POCT GLUCOSE 1 03/08/2016 documented in this encounter Care Teams Section Maintainer Relationship Specialty Start Date End Date None, Provider PCP - General 03/08/16 08/21/18 documented as of this encounter
--- OUTSIDE RECORDS SUMMARY | 2024-01-02 06:22 | XMS_ITS | Encounter Summary ---
Author Organization [facility] Address [address] [place] [address] Care Team Providers Care Assembly Line Upholsterer Name Role Phone None, Provider Primary Care Provider Unavailabl e Reason for Visit * Reason Onset Date Comments Other 07/30/2016 Encounter Details Date Type Department Care Team (Late st Contact Info) Description 07/30/2016 Telephone [facility] Ophthalmology - [facility] [address] [place], [place] [phone] Broderick Schwartz MD 111 [facility], Level 5 [place] [address] Other Social History Tobacco Use [...] Encounter - Catherine Dhillon, MARCELO - 07/30/2016 5066 EST Tried one more time, still no go. Placed letter in mail today. 1983 Called pt. She states if fax will [...] and needs a letter faxed to work: [phone]. Just needs to state she had an appointment here today with Dr Schwartz @ 12:30. documented in this encounter Plan of Treatment Upcoming Encounters Date Type Department Care Team (Late st Contact Info) Description 02/21/2024 9:45 EDT Office Visit [facility] Adult Primary Care - [address] [phone] Carrington Calderon MD [address] [phone] 02/27/2024 8:30 EDT Telemedicine [facility] Sleep Program - [address] [address] Dwight Colbert [address] [place] [phone] 02/29/2024 10:30 EDT Appointment [facility] Radiology Nuclear Medicine and PET - [address] [phone] 02/29/2024 14:30 EDT Appointment [facility] Radiology Nuclear Medicine and PET - [address] [phone] 03/01/2024 8:00 EDT Appointment [facility] Radiology Nuclear Medicine and PET [address] [phone] 03/01/2024 9:30 EDT Appointment [facility] Radiology Nuclear Medicine and PET [address] [phone] documented as of this encounter Visit Diagnoses Not on filedocumented in this encounter Care Teams Assembly Line Upholsterer Relationship Specialty Start Date End Date None, Provider PCP - General 03/08/16 08/21/18 documented as of this encounter
--- OUTSIDE RECORDS SUMMARY | 2024-01-02 06:22 | XMS_ITS | Encounter Summary ---
Author Organization [facility] Address [address] [place] [address] Care Team Providers Care Boning Room Worker Name Role Phone None, Provider Primary [...] 20:46 EDT - 12/05/2016 2:52 EDT Emergency [facility] Emergency Department - [address] [address] Benita Sol MD [address] [place] [address], Level 1 [place] [address] Emergency, MD Ekaterina Type 2 diabetes mellitus with hyperglycemia, with long-term current use of insulin ([facility]) (Primary Dx) Discharge Disposition: Home or Self [...] Allergy status to analgesic agent status-Z88.6[ICD-10-CM] 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 Please see a primary care doctor [facility]. You can call from our list of accepting providers. Continue to take your Lantus. This is very important. * Attachments The following attachments cannot be sent through Care Everywhere. * DIABETES: TYPE 2: METFORMIN: GENERAL INFO ([place]) * DIABETES DIET GUIDELINES: GENERAL INFO ([place]) documented in this encounter Medications at Time [...] Value Status Glucose, Fingerstick 350 (*) Final Pharmacy Informatics Specialist ID [id number] Final GLUCOSE, GLUCOMETER - Abnormal Glucose, Fingerstick 316 (*) Final Pharmacy Informatics Specialist ID [id number] Final HEMAGRAM AND DIFFERENTIAL - Abnormal WBC [...] Bilirubin Neg Final Ketones Neg Final Specific [place] 1.020 Final pH 6.0 Final Protein Neg Final Urobilinogen 0.2 Final Nitrite Neg Final Leuk Esterase Neg Final Tech ID [id number] Final POCT TEST, CLINITEK UPT Result Neg Final Tech ID [id number] Final POCT GLUCOSE Relevant Data Procedures ED [...] the Emergency Department: Improved PCP: Provider None [facility] 12/05/2016 9:25 No flowsheet data found. This [...] [facility] - [place] 1 [place], [place] [address] Carrington Calderon MD [address] [place] [address] 1 [place] [address] 02/27/2024 8:30 EDT Telemedicine [facility] Sleep Program - [address] [address] Dwight Colbert [address] [place] [address] 02/29/2024 10:30 EDT Appointment [facility] Radiology Nuclear Medicine and PET [address] [id number] 02/29/2024 14:30 EDT Appointment [facility] Radiology Nuclear Medicine and PET [address] [id number] 03/01/2024 8:00 EDT Appointment [facility] Radiology Nuclear Medicine and PET [address] [address] 03/01/2024 9:30 EDT Appointment [facility] Radiology Nuclear Medicine and PET [address] [phone] documented as of this encounter Procedures Procedure [...] (ABNORMAL) POCT URINE DIPSTICK (12/05/2016 1:16 EDT) Color YELLOW 12/05/2016 1:24 EDT [facility] Clarity, UA Clear 12/05/2016 1:24 EDT [facility] Glucose 3+(A) Neg 12/05/2016 1:24 EDT [facility] Bilirubin Neg Neg 12/05/2016 1:24 EDT [facility] Ketones Neg Neg 12/05/2016 1:24 EDT [facility] Specific [place] 1.020 1.001 - 1.035 12/05/2016 1:24 EDT [facility] Blood 2+(A) Neg 12/05/2016 1:24 EDT [facility] pH 6.0 4.6 - 8.0 12/05/2016 1:24 EDT [facility] Protein Neg Neg 12/05/2016 1:24 EDT [facility] Urobilinogen 0.2 0.2 - 1.0 E.U./dl 12/05/2016 1:24 EDT [facility] Nitrite Neg Neg 12/05/2016 1:24 EDT [facility] Leuk Esterase Neg Neg 12/05/2016 1:24 T [facility] brand marketing coordinator ID [id number] 12/05/2016 1:24 EDT [facility] Comment:Test performed at Em ergency Department Urine specimen (specimen) URINE / Unknown 12/05/2016 1:16 EDT 12/05/2016 1:24 EDT Benita Sol MD POINT OF CARE TEST O RDERABLES [facility] [address] [place] [address] * POCT TEST, CLINITEK (12/05/2016 1:14 EDT) UPT Result Neg Neg 12/05/2016 1:27 EDT [facility] brand marketing coordinator ID [id number] 12/05/2016 [facility] Comment:Test performed at Em ergency Department Urine specimen (specimen) URINE / Unknown 12/05/2016 1:14 EDT 12/05/2016 1:27 EDT Benita Sol MD POINT OF CARE TEST O RDERABLES [facility] [address] [place] [address] * (ABNORMAL) BASIC METABOLIC PANEL (12/05/2016 1:03 EDT) Sodium 140 136 - 145 mEq/L 12/05/2016 1:41 [facility] Potassium 4.4 3.5 - 5.0 mEq/L 12/05/2016 1:41 [facility] Chloride 101 96 - 110 mEq/L 12/05/2016 1:41 [facility] CO2 26 22 - 32 mEq/L 12/05/2016 1:41 [facility] BUN 14 10 - 26 mg/dl 12/05/2016 1:41 [facility] Creatinine 0.48(L) 0.52 - 1.04 mg/dl 12/05/2016 1:41 [facility] GFR, Calculated 131 >60 ml/min/1.7 3m2 12/05/2016 1:41 [facility] Comment: eGFR calculated using CKD-EPI equation for non Americans. Multiply eGFR by 1.16 for Americans. Calcium 9.9 8.5 - 10.5 mg/dl 12/05/2016 1:41 [facility] Calculated Calcium 9.7 8.5 - 10.5 mg/dl 12/05/2016 1:41 [facility] Glucose, Serum 295(H) 70 - 100 mg/dl 12/05/2016 1:41 [facility] Fasting? Unknown 12/05/2016 1:17 [facility] Blood specimen (specimen) BLOOD SPECIMEN / Unknown 12/05/2016 1:03 EDT 12/05/2016 1:17 EDT Benita Sol MD CHEMISTRY & BLOOD GA S ORDERABLES [facility] [address] [place] [address] * (ABNORMAL) HEMAGRAM AND DIFFERENTIAL (12/05/2016 1:03 EDT) WBC 16.71(H) 4.0 - 12.4 K/cmm 12/05/2016 1:22 [facility] RBC 5.08(H) 3.86 - 5.04 M/cmm 12/05/2016 1:22 [facility] Hemoglobin 15.6(H) 11.6 - 15.2 gm/dl 12/05/2016 1:22 [facility] HCT 43.8 34.9 - 44.4 % 12/05/2016 1:22 [facility] MCV 86 81 - 98 fl 12/05/2016 1:22 [facility] MCH 30.7 26.7 - 33.3 pg 12/05/2016 1:22 [facility] MCHC 35.6 32.1 - 35.9 gm/dl 12/05/2016 1:22 [facility] RDW-CV 12.2 <14.7 % 12/05/2016 1:22 [facility] RDW-SD 38.3 <50.4 fl 12/05/2016 1:22 [facility] PLT 415(H) 141 - 377 K/cmm 12/05/2016 1:22 [facility] MPV 9.6 9.5 - 12.7 fl 12/05/2016 1:22 [facility] Neutrophils 54.0 % 12/05/2016 2:05 [facility] Lymphocytes 34.0 % 12/05/2016 2:05 [facility] Monocytes 7.0 % 12/05/2016 2:05 [facility] Eosinophils 3.0 % 12/05/2016 2:05 [facility] Basophils 2.0 % 12/05/2016 2:05 EDT [facility] ABS Neutrophils 9.03(H) 2.20 - 8.85 K/cmm 12/05/2016 2:05 EDT [facility] ABS Lymphs 5.68(H) 1.09 - 3.30 K/cmm 12/05/2016 2:05 T [facility] ABS Monocytes 1.17(H) 0.1 - 0.8 K/cmm 12/05/2016 2:05 EDT [facility] ABS Eosinophils 0.50 0.03 - 0.61 K/cmm 12/05/2016 2:05 [facility] ABS Basophils 0.33(H) 0.01 - 0.11 K/cmm 12/05/2016 2:05 [facility] Type of Diff: Manual 12/05/2016 2:05 T [facility] Blood specimen (specimen) BLOOD SPECIMEN / Unknown 12/05/2016 1:03 EDT 12/05/2016 1:18 EDT Benita Sol MD PACKAGES & DNA PROBE ORDERABLES [facility] [address] [place] [address] * (ABNORMAL) GLUCOSE, GLUCOMETER (12/05/2016 0:32 EDT) Glucose, Fingerstick 316(H) 70 - 100 mg/dl 12/05/2016 0:32 EDT [facility] Pharmacy Informatics Specialist ID [id number] 12/05/2016 0:32 EDT [facility] Comment:Test Performed by Nu ing Services BLOOD SPECIMEN / Unknown 12/05/2016 0:32 EDT 12/05/2016 0:33 EDT Provider Unknown CHEMISTRY & BLOOD GA S ORDERABLES Performing Organization Address City/[facility]/ZIP Co de Phone Number [facility] [address] [place] [address] * (ABNORMAL) GLUCOSE, GLUCOMETER (12/04/2016 20:58 EDT) Glucose, Fingerstick 350(H) 70 - 100 mg/dl 12/04/2016 21:02 EDT [facility] Pharmacy Informatics Specialist ID [id number] 12/04/2016 21:02 EDT [facility] Comment:Test Performed by [facility] Services BLOOD SPECIMEN / Unknown 12/04/2016 20:58 EDT 12/04/2016 21:02 EDT Provider Unknown CHEMISTRY & BLOOD GA S ORDERABLES [facility] [address] [place] [address] documented in this encounter Visit Diagnoses Diagnosis Type 2 diabetes mellitus with hyperglycemia, with long-term current use of insulin ([facility])- Primary documented in this encounter Administered Medications [...] STAT 0117 (Given - Provid er: Radha Ritchie, RN) insulin glargine (LANTUS SOLOSTAR) injection pen 40 Units (COMPLETED) 40 Units, subcutaneous, NOW X1, 1 dose, On 12/05/16 at 0200, STAT 0200 (Given - Provid er: Radha Ritchie, RN) metFORMIN (GLUCOPHAGE) tablet 500 mg (COMPLETED) 500 mg, oral, NOW X1, 1 dose, On 12/05/16 at 0200, STAT 0251 (Given - Provid er: Radha Ritchie, RN) sodium chloride 0.9 % BOLUS 1,000 mL (COMPLETED) 1,000 mL, intravenous, NOW X1, 1 dose, On 12/05/16 at 0200, STAT 0157 (New Bag - Prov ider: Radha Ritchie, MARCELO)0223 (Completed - Provider: Radha Ritchie RN) documented in this encounter Orders Medications [...] 12/05/2016 documented in this encounter Care Teams Boning Room Worker Relationship Specialty Start Date End Date None, Provider PCP - General 03/08/16 08/21/18 documented as of this encounter
--- OUTSIDE RECORDS SUMMARY | 2024-01-02 06:22 | XMS_ITS | Encounter Summary ---
Author Organization [facility] Address [address] [place] [address] Care Team Providers Care Director Sales Training Name Role Phone Benita Shafer GUSTAVO Primary Care Provider [phone] Reason for Visit * Reason Comments Problem Encounter Details Date Type Department Care Team (Late st Contact Info) Description 10/24/2018 13:00 EDT Initial consult [facility] Women's Services - [address] [phone] Ana Coronado MD 111 [facility], Level [address] [place] [address] Complication of in first trimester [...] all of her future care here at [facility]. Is planning to see the maternal- medicine doctors for her . O: FILAMENT TESTER US OB FIRST TRIMESTER TRANSVAGINAL Indication Early [...] Visualized. Embryo: Not visualized. Impression OB transvaginal [id number] 1. Small gestational sac with a yolk [...] she was told. I spent 30 minutes [id number]-zauc with the patient of which more than 50% of this time was spent counseling her about above documented issues and discussion. documented in this encounter Plan of Treatment Upcoming Encounters Date Type Department Care Team (Late st Contact Info) Description 02/21/2024 9:45 EDT Office Visit [facility] Adult Primary Care - [address] [address] Carrington Calderon MD 1 [facility] 1 [place] [address] 02/27/2024 8:30 EDT Telemedicine [facility] Sleep Program - [address] [address] Dwight Colbert [address] [place] [phone] 02/29/2024 10:30 EDT [facility] Radiology Nuclear Medicine and PET - [address] [address] 02/29/2024 14:30 EDT Appointment [facility] Radiology Nuclear Medicine and PET [address] [phone] 03/01/2024 8:00 EDT [facility] [address] [phone] 03/01/2024 9:30 EDT Appointment [facility] Radiology Nuclear Medicine and PET - [address] [phone] documented as of this encounter Visit Diagnoses Diagnosis Complication of in first trimester- Primary documented in this encounter Care Teams Director Sales Training Relationship Specialty Start Date End Date Benita Shafer NP PCP - General 08/22/18 06/17/19 documented as of this encounter
--- OUTSIDE RECORDS SUMMARY | 2024-01-02 06:22 | XMS_ITS | Encounter Summary ---
Author Organization [facility] Address [address] [place] [address] Care Team Providers Care Director Of Sales And Marketing Name Role Phone None, Provider Primary Care Provider Unavailabl e Reason for Visit * Reason Onset Date Comments Follow-up 07/20/2016 Results 07/20/2016 Encounter Details Date Type Department Care Team (Late st Contact Info) Description 07/20/2016 Telephone [facility] Ur[facility] Care - [address] [phone] Moy Marquez MD 0 [place] [phone] Follow-up; Results Social History Tobacco Use Types [...] Encounter - Moy Marquez MD - 07/24/2016 4144 EST Called and spoke to patient follow up with recent visit. She notes that cyst has improved. I discussed that her hemoglobin A1c is quite elevated at 11.2, indicating that she does have poorlycontrolled diabetes. We had prescribed metformin for her to resume- she plans to excelsior picker today. She will likely need further agents. She does have a follow-up appointment in three days with the [facility] to establish care. I strongly encouraged [...] [facility] - [address] [phone] Carrington Calderon MD [address] [phone] 02/27/2024 8:30 EDT Telemedicine [facility] Sleep Program - [address] [phone] Dwight Colbert [address] [place] [address] [phone] 02/29/2024 10:[address] [facility] Radiology Nuclear Medicine and PET - [address] [id number] 02/29/2024 14:[address] [facility] Radiology Nuclear Medicine and PET - [address] [phone] 03/01/2024 8:[address] [facility] Radiology Nuclear Medicine and PET - [address] [id number] 03/01/2024 9:[address] [facility] Radiology Nuclear Medicine and PET - [address] [phone] documented as of this encounter Visit Diagnoses Not on filedocumented in this encounter Care Teams Director Of Sales And Marketing Relationship Specialty Start Date End Date None, Provider PCP - General 03/08/16 08/21/18 documented as of this encounter
--- OUTSIDE RECORDS SUMMARY | 2024-01-02 06:22 | XMS_ITS | Encounter Summary ---
Author Organization [facility] Address [address] [place] [address] Care Team Providers Care Facilities Locator Name Role Phone Benita Shafer GUSTAVO Primary Care Provider [phone] Reason for Referral * DRY CELL TESTER (Routine) - New Request Specialty Diagnoses / Procedures Referred By Kit t Referred To Contact Diagnoses Missed menses Procedures GATE GUARD US OB FIRST TRIMESTER TRANSVAGINAL Nohemy Sales MD [address] [place] [address], Level [address] [place] [address] Referral ID Status Reason Start Date Expiration Date V isits Requested Visits Authorized [id number] New Request 10/19/2018 1 1 Reason for Visit * Reason Onset Date Comments 10/19/2018 Encounter Details Date Type Department Care Team (Late st Contact Info) Description 10/19/2018 Telephone [facility] Obstetrics & Midwifery [address] [address] Mary Regalado RN Social History [...] .Initial Appt Screening Form Best Contact Number: [phone] [facility] Provider: HUGO for Type 2 diabetes LMP/Pt [...] h/o 5 miscarriages and traumatic experience with [facility] OB and would like to come here. [...] scribed to patient'spharmacy. Scheduled for first trimester GATE GUARD US for October 24 at 1:45pm- she would like to wait to schedule initial visit given her anxiety and taking things a day at a time. If viable- will need to schedule TC at check out. packet reviewed and mailed to patient with blood sugar log book. Total time spent: 20 minutes documented in this encounter Plan of Treatment Upcoming Encounters Date Type Department Care Team (Late st Contact Info) Description 02/21/2024 9:45 EDT Office Visit [facility] Adult Primary Care - [address] [phone] Carrington Calderon MD 1 [facility] 1 [place] [phone] 02/27/2024 8:30 EDT Telemedicine [facility] Sleep Program - [address] [phone] Dwight Colbert [address] [place] [address] [phone] 02/29/2024 10:30 EDT Appointment [facility] Radiology Nuclear Medicine and PET - [address] [phone] 02/29/2024 14:30 EDT Appointment [facility] Radiology Nuclear Medicine and PET [address] [address] 03/01/2024 8:00 EDT Appointment [facility] Radiology Nuclear Medicine and PET [address] [address] 03/01/2024 9:30 EDT Appointment [facility] Radiology Nuclear Medicine and PET [address] [address] documented as of this encounter Procedures Procedure Name Priority Date/Time Associated Diagnosis Comments GATE GUARD US OB FIRST TRIMESTER TRANSVAGINAL Routine 10/24/2018 13:58 EDT Missed menses documented in this encounter Results * GATE GUARD US OB FIRST TRIMESTER TRANSVAGINAL (10/24/2018 13:58 [...] Visualized. Embryo: Not visualized. Impression OB transvaginal [id number] 1. Small gestational sac with a yolk [...] Visualized. Embryo: Not visualized. Impression OB transvaginal [id number] 1. Small gestational sac with a yolk [...] SERVICE: 10/24/2018 Nohemy Sales MD IMG US GATE GUARD ORDERABLE S documented in this encounter Visit Diagnoses Diagnosis Missed menses- Primary Absence of menstruation documented in this encounter Care Teams Facilities Locator Relationship Specialty Start Date End Date Benita Shafer NP PCP - General 08/22/18 06/17/19 documented as of this encounter
--- OUTSIDE RECORDS SUMMARY | 2024-01-02 06:22 | XMS_ITS | Encounter Summary ---
Author Organization [facility] Address [address] [place] [address] Care Team Providers Care Senior Adults Director Name Role Phone Nimisha Clifton CELL CLEANER Primary Care Provider [phone] Reason for Visit * Reason Comments New Patient Visit Otalgia pain off and on for years but hurts consistantly since Tuesday Encounter Details Date Type Department Care Team (Late st Contact Info) Description 09/03/2015 11:00 EDT Office Visit [facility] Adult Primary Care - [address] [phone] Nimisha Clifton NP [address] [phone] Type 2 diabetes mellitus without complication (CMS-HCC) [...] over the past years. Originally from the [facility]. Presently lives [facility] with her boyfriend/significant other and his 4-year-old [...] citalopram and develop suicidal ideation-she went to [place] for a short stay for withdrawal from [...] years until this past month when her ADVERTISING PRODUCTION MANAGER placed her back on it in early [...] unknown. She follows with Dr. López/affiliates in ADVERTISING PRODUCTION MANAGER for her ADVERTISING PRODUCTION MANAGER care. She had a D&C done earlier [...] Hemoglobin A1c; Future Tachycardia Orders: - Thyroid [place]ling; Future Depression, unspecified depression type Orders: - Thyroid [place]ling; Future Other orders - insulin glargine (L[facility]US [...] [facility] - [address] [phone] Carrington Calderon MD [address] [phone] 02/27/2024 8:30 EDT Telemedicine [facility] Sleep Program - [address] [phone] Dwight Colbert [address] [place] [address] [phone] 02/29/2024 10:[address] [facility] Radiology Nuclear Medicine and PET [address] [phone] 02/29/2024 14:[address] [facility] Radiology Nuclear Medicine and PET - [address] [phone] 03/01/2024 8:[address] [facility] Radiology Nuclear Medicine and PET [address] [address] 03/01/2024 9:[address] [facility] Radiology Nuclear Medicine and [address] [address] documented as of this encounter Results * (ABNORMAL) THYROID CASCADE (09/03/2015 12:33 EDT) TSH 0.48(L) 0.55 - 4.78 uIU/ml 09/03/2015 18:19 EDT [facility] Comment: TSH cascade is not recommended for patients in which pituitary or hypothalamic disorders are suspected. Blood specimen (specimen) BLOOD SPECIMEN / Unknown 09/03/2015 12:33 EDT 09/03/2015 13:37 EDT Nimisha Clifton NP CHEMISTRY & BLOOD GAS ORDERABLES Performing Organization Address [facility] Co de Phone Number [facility] [address] [place] [address] * HEMOGLOBIN A1C (09/03/2015 12:33 EDT) Pathologist [facility] Hemoglobin A1C 8.8 % 09/03/2015 14:56 EDT [facility] Comment: Reference Range: <5.7% Normal 5.7-6.4% Increased risk for diabetes =>6.5% Diagnostic for diabetes (if confirmed) The A1c goal for non adults in general is <7%. The A1c goal for selected patients may be significantly lower than 7% if this can be achieved without significant hypoglycemia or other adverse effects of treatment. Est Avg Glucose 206 mg/dl 6 14:56 EDT [facility] Comment: eAG represents the A1c result expressed as average glucose in mg/dl. Blood specimen (specimen) BLOOD SPECIMEN / Unknown 09/03/2015 12:33 EDT 09/03/2015 13:37 EDT Nimisha Clifton NP CHEMISTRY & BLOOD GAS ORDERABLES [facility] [address] [place] [address] * (ABNORMAL) COMPREHENSIVE METABOLIC PANEL (CMP) (09/03/2015 12:33 EDT) Potassium 4.1 3.5 - 5.0 mEq/L 09/03/2015 14:15 [facility] Sodium 141 136 - 145 mEq/L 09/03/2015 14:15 [facility] Chloride 101 96 - 110 mEq/L 09/03/2015 14:15 [facility] CO2 29 24 - 32 mEq/L 09/03/2015 14:15 [facility] Total Alkaline Phosphatase 84 38 - 126 U/L 09/03/2015 14:15 [facility] Bilirubin, Total <0.5 <1.4 mg/dl 09/03/19 16 14:15 [facility] AST 19 15 - 46 U/L 09/03/2015 14:15 [facility] ALT 33 <53 U/L 09/03/2015 14:15 [facility] Albumin 3.9 3.4 - 4.9 g/dl 09/03/2015 14:15 [facility] Total Protein 6.6 6.3 - 8.2 g/dl 09/03/2015 14:15 [facility] Creatinine 0.48(L) 0.52 - 1.04 mg/dl 09/03/2015 14:15 [facility] GFR, Calculated 132 >60 ml/min/1.7 3m2 09/03/2015 14:15 [facility] Comment: eGFR calculated using CKD-EPI equation for non Americans. Multiply eGFR by 1.16 for Americans. BUN 11 10 - 26 mg/dl 09/03/2015 14:15 [facility] Calcium 9.8 8.5 - 10.5 mg/dl 09/03/2015 14:15 [facility] Calculated Calcium 10.3 8.5 - 10.5 mg/dl 09/03/2015 14:15 [facility] Glucose, Serum 205(H) 70 - 100 mg/dl 09/03/2015 14:15 EDT [facility] Fasting? No 09/03/2015 12:23 EDT [facility] Blood specimen (specimen) BLOOD SPECIMEN / Unknown 09/03/2015 12:33 EDT 09/03/2015 13:37 EDT Nimisha Clifton NP CHEMISTRY & BLOOD GAS ORDERABLES [facility] [address] [place] [address] documented in this encounter Visit Diagnoses Diagnosis Type 2 diabetes mellitus without complication ([facility])- Primary Type II or unspecified type [...] 03/08/2016 added in this encounter Care Teams Senior Adults Director Relationship Specialty Start Date End Date Nimisha Clifton NP 1 [facility] 1 [place] [address] PCP - General 08/28/15 03/07/16 documented as of this encounter
--- OUTSIDE RECORDS SUMMARY | 2024-01-02 06:22 | XMS_ITS | Encounter Summary ---
Author Organization [facility] Address [address] [place] [address] Care Team Providers Care Curator [employer] Name Role Phone Benita Shafer SDV PILOT/NAVIGATOR/DDS OPERATOR Primary Care Provider [phone] Reason for Visit * Reason Onset Date Comments Results 10/24/2018 Encounter Details Date Type Department Care Team (Late st Contact Info) Description 10/24/2018 Telephone [facility] Women's Services - [address] [phone] Ana Coronado MD 111 [facility], Level 4 [place] [address] Results Social History Tobacco Use [...] - Ana Coronado MD, MD - 10/24/2018 9309 EDT Patient called with hCG level and [...] Visit [facility] Adult Primary Care - [address] 194801 Carrington Calderon MD [address] [phone] 02/27/2024 8:30 EDT Telemedicine [facility] Sleep Program - [address] [phone] Dwight Colbert [address] [place] [address] [phone] 02/29/2024 10:30 EDT Appointment [facility] Radiology Nuclear Medicine and PET [address] [id number] 02/29/2024 14:30 EDT Appointment [facility] Radiology Nuclear Medicine and PET [address] [phone] 03/01/2024 8:00 EDT Appointment [facility] Radiology Nuclear Medicine and PET [address] [phone] 03/01/2024 9:30 EDT Appointment [facility] Radiology Nuclear Medicine and PET [address] [phone] documented as of this encounter Results * (ABNORMAL) QUANT BETA HCG, (10/26/2018 8:48 EDT) Quant Beta HCG, Preg 1,531(H) <5 mIU/ml 10/26/2018 9:52 EDT [facility] Comment: Reference Range: Negative = <5 Indeterminate = 5-25 recommend repeat in 48 hours. Positive = >25 The results of this assay can be falsely lowered due to the consumption of Biotin. Blood specimen (specimen) BLOOD SPECIMEN / Unknown 10/26/2018 8:48 EDT 10/26/2018 9:00 EDT Ana Coronado MD CHEMISTRY & BLOOD GAS ORDERABLES [facility] [address] [place] [address] documented in this encounter Visit Diagnoses Diagnosis Complication of in first trimester- Primary documented in this encounter Care Teams Curator [employer] Relationship Specialty Start Date End Date Benita Shafer NP PCP - General 08/22/18 06/17/19 documented as of this encounter
--- OUTSIDE RECORDS SUMMARY | 2024-01-02 06:22 | XMS_ITS | Encounter Summary ---
Author Organization [facility] Address [address] [place] [address] Care Team Providers Care Plant Maintenance Manager Name Role Phone Nimisha Clifton PIPE ROLLER Primary Care Provider [phone] Encounter Details Date Type Department Care Team (Late st Contact Info) Description 09/03/2015 Results Only [facility] Adult Primary Care - [address] [phone] Nimisha Clifton, GUSTAVO [address] [phone] Social History Tobacco Use Types Packs/Day Years [...] [facility] Adult Primary Care [address] [phone] Carrington Calderon MD [address] [phone] 02/27/2024 8:30 EDT Telemedicine [facility] Sleep Program - [address] [place] [address] [place] [address] Dwight Colbert [address] [place], [place] [phone] 02/29/2024 10:30 EDT Appointment [facility] Radiology Nuclear Medicine and [address] 616361 02/29/2024 14:30 EDT Appointment [facility] Radiology Nuclear Medicine and PET [address] [phone] 03/01/2024 8:00 EDT Appointment [facility] Radiology Nuclear Medicine and [address] [phone] 03/01/2024 9:30 EDT Appointment [facility] Radiology Nuclear [facility] and [address] [address] documented as of this encounter Procedures Procedure Name Priority Date/Time Associated Diagnosis Comments T4, FREE REFLEX Routine 09/03/2015 12:33 EDT documented in this encounter Results * T4, FREE REFLEX (09/03/2015 12:33 EDT) Free T4 1.3 0.8 - 1.8 ng/dl 09/03/2015 18:43 EDT [facility] BLOOD SPECIMEN / Unknown 09/03/2015 12:33 EDT 09/03/2015 13:37 EDT Nimisha Clifton NP CHEMISTRY & BLOOD GAS ORDERABLES [facility] [address] [place] [address] documented in this encounter Visit Diagnoses Not on filedocumented in this encounter Care Teams Plant Maintenance Manager Relationship Specialty Start Date End Date Nimisha Clifton NP 1 [facility] Level 1 [place] [phone] PCP - General 08/28/15 03/07/16 documented as of this encounter
--- OUTSIDE RECORDS SUMMARY | 2024-01-02 06:22 | XMS_ITS | Encounter Summary ---
Author Organization [facility] Address [address] [place] [address] Care Team Providers Care Chief Solution Architect Name Role Phone Nimisha Clifton ED CASE MANAGER Primary Care Provider [phone] Reason for Visit * Reason Onset Date Comments No Show 10/03/2015 Encounter Details Date Type Department Care Team (Late st Contact Info) Description 10/03/2015 Telephone [facility] Adult Primary Care - [place] 1 [place], [place] 404841 Nimisha Clifton, ED CASE MANAGER 1 [facility] Level 1 [place] [phone] No Show Social History Tobacco [facility] [address] [phone] Carrington Calderon MD [address] [place] [phone] 02/27/2024 8:30 EDT Telemedicine [facility] Sleep Program - [address] [phone] Dwight Colbert [address] [place] [address] [phone] 02/29/2024 10:30 EDT Appointment [facility] Radiology Nuclear Medicine and PET [address] [phone] 02/29/2024 14:30 EDT Appointment [facility] Radiology Nuclear Medicine and PET [address] [phone] 03/01/2024 8:00 EDT Appointment [facility] Radiology Nuclear Medicine and PET [address] 404841 03/01/2024 9:30 EDT Appointment [facility] Radiology Nuclear Medicine and PET [address] [phone] documented as of this encounter Visit Diagnoses Not on filedocumented in this encounter Care Teams Chief Solution Architect Relationship Specialty Start Date End Date Nimisha Clifton NP [address] [place] [phone] PCP - General 08/28/15 03/07/16 documented as of this encounter
--- OUTSIDE RECORDS SUMMARY | 2024-01-02 06:22 | XMS_ITS | Encounter Summary ---
Author Organization [facility] Address [address] [place] [address] Care Team Providers Care Relief Salesperson Name Role Phone Peytonjuan Nimisha Kelly PEDIATRICIAN Primary Care Provider [phone] Encounter Details Date Type Department Care Team (Late st Contact Info) Description 09/03/2015 Phlebotomy Only [facility] - [address] [address] Attending Physician, Outpatient Type 2 diabetes mellitus without complication [...] [facility] - [address] [phone] Carrington Calderon MD [address] [phone] 02/27/2024 8:30 EDT Telemedicine [facility] Sleep Program - [address] [phone] Dwight Colbert [address] [place] [address] 02/29/2024 10:30 EDT Appointment [facility] Radiology Nuclear Medicine and PET - [address] [address] 02/29/2024 14:30 EDT Appointment [facility] Radiology Nuclear Medicine and PET [address] [id number] 03/01/2024 8:00 EDT Appointment [facility] Radiology Nuclear Medicine and PET [address] [phone] 03/01/2024 9:30 EDT Appointment [facility] Radiology Nuclear Medicine and PET [address] [address] documented as of this encounter Procedures Procedure Name Priority Date/Time Associated Diagnosis Comments THYROID CASCADE Routine 09/03/2015 12:33 EDT Tachycardia Depression, unspecified depression type HEMOGLOBIN A1C Routine 09/03/2015 12:33 EDT Type 2 diabetes mellitus without complication ([facility]) ([facility]) COMPREHENSIVE METABOLIC PANEL (CMP) Routine 09/03/2015 12:33 EDT Type 2 diabetes mellitus without complication ([facility]) ([facility]) documented in this encounter Results * (ABNORMAL) THYROID CASCADE (09/03/2015 12:33 EDT) TSH 0.48(L) 0.55 - 4.78 uIU/ml 09/03/2015 18:19 EDT [facility] Comment: TSH cascade is not recommended for patients in which pituitary or hypothalamic disorders are suspected. Blood specimen (specimen) BLOOD SPECIMEN / Unknown 09/03/2015 12:33 EDT 09/03/2015 13:37 EDT Nimisha Clifton NP CHEMISTRY & BLOOD GAS ORDERABLES Performing Organization Address City/State/[facility] Co de Phone Number [facility] [address] [place] [address] * HEMOGLOBIN A1C (09/03/2015 12:33 EDT) Pathologist [facility] Hemoglobin A1C 8.8 % 09/03/2015 14:56 [facility] Comment: Reference Range: <5.7% Normal 5.7-6.4% Increased risk for diabetes =>6.5% Diagnostic for diabetes (if confirmed) The A1c goal for non adults in general is <7%. The A1c goal for selected patients may be significantly lower than 7% if this can be achieved without significant hypoglycemia or other adverse effects of treatment. Est Avg Glucose 206 mg/dl 6 14:56 [facility] Comment: eAG represents the A1c result expressed as average glucose in mg/dl. Blood specimen (specimen) BLOOD SPECIMEN / Unknown 09/03/2015 12:33 EDT 09/03/2015 13:37 EDT Nimisha Clifton NP CHEMISTRY & BLOOD GAS ORDERABLES Performing Organization Address [facility] Co de Phone Number [facility] [address] [place] [address] * (ABNORMAL) COMPREHENSIVE METABOLIC PANEL (CMP) (09/03/2015 12:33 EDT) [facility] Potassium 4.1 3.5 - 5.0 mEq/L 09/03/2015 14:15 [facility] Sodium 141 136 - 145 mEq/L 09/03/2015 14:15 [facility] Chloride 101 96 - 110 mEq/L 09/03/2015 14:15 [facility] CO2 29 24 - 32 mEq/L 09/03/2015 14:15 [facility] Total Alkaline Phosphatase 84 38 - 126 U/L 09/03/2015 14:15 [facility] Bilirubin, Total <0.5 <1.4 mg/dl 09/03/19 16 14:15 [facility] AST 19 15 - 46 U/L 09/03/2015 14:15 [facility] ALT 33 <53 U/L 09/03/2015 14:15 [facility] Albumin 3.9 3.4 - 4.9 g/dl 09/03/2015 14:15 [facility] Total Protein 6.6 6.3 - 8.2 g/dl 09/03/2015 14:15 [facility] Creatinine 0.48(L) 0.52 - 1.04 mg/dl 09/03/2015 14:15 [facility] GFR, Calculated 132 >60 ml/min/1.7 3m2 09/03/2015 14:15 [facility] Comment: eGFR calculated using CKD-EPI equation for non Americans. Multiply eGFR by 1.16 for Americans. BUN 11 10 - 26 mg/dl 09/03/2015 14:15 [facility] Calcium 9.8 8.5 - 10.5 mg/dl 09/03/2015 14:15 [facility] Calculated Calcium 10.3 8.5 - 10.5 mg/dl 09/03/2015 14:15 [facility] Glucose, Serum 205(H) 70 - 100 mg/dl 09/03/2015 14:15 [facility] Fasting? No 09/03/2015 12:23 [facility] Blood specimen (specimen) BLOOD SPECIMEN / Unknown 09/03/2015 12:33 EDT 09/03/2015 13:37 EDT Nimisha Clifton NP CHEMISTRY & BLOOD GAS ORDERABLES [facility] [address] [place] [address] documented in this encounter Visit Diagnoses Diagnosis Type 2 diabetes mellitus without complication ([facility]) Type II or unspecified type diabetes mellitus without mention of complication, not stated as uncontrolled Tachycardia Tachycardia, unspecified Depression, unspecified depression type documented in this encounter Care Teams Relief Salesperson Relationship Specialty Start Date End Date Nimisha Clifton NP 1 [facility] Level [address] [place] [address] PCP - General 08/28/15 03/07/16 documented as of this encounter
--- OUTSIDE RECORDS SUMMARY | 2024-01-02 06:22 | XMS_ITS | Encounter Summary ---
Author Organization [facility] Address [address] [place] [address] Care Team Providers Care Creative Coordinator Name Role Phone None, Provider Primary Care Provider Unavailabl e Reason for Visit * Reason Onset Date Comments Eye Problem 07/29/2016 Encounter Details Date Type Department Care Team (Late st Contact Info) Description 07/29/2016 Telephone [facility] Ophthalmology - [address] [phone] Unknown, Provider, Eye Problem Social History Tobacco [...] he will see pt tomorrow. Catherine Alonzo ([facility]) calling pt to schedule. * Telephone Encounter [...] to you in the next two hours? [phone], can leavea message (VERIFY THE PHONE NUMBERS REGARDLESS OF WHAT IS IN THE SYSTEM.) (Please remember to ask the MD what he/she needs from the paper chart.) * Telephone Encounter - Catherine Donald - 07/29/2016 2107 EST Pt was seen at ed. documented in this encounter Plan of Treatment Upcoming Encounters Date Type Department Care Team (Late st Contact Info) Description 02/21/2024 9:45 EDT Office Visit [facility] Adult Primary Care - [address] [address] Carrington Calderon MD 1 [facility] 1 [place] [address] 02/27/2024 8:30 EDT Telemedicine [facility] Sleep Program - [address] [address] Colbert Dwight [address] [place] [phone] 02/29/2024 10:30 EDT [facility] [address] [phone] 02/29/2024 14:30 EDT Appointment [facility] Radiology Nuclear Medicine and PET [address] [phone] 03/01/2024 8:00 EDT Appointment [facility] Radiology Nuclear Medicine and PET [address] [phone] 03/01/2024 9:30 EDT Appointment [facility] Radiology Nuclear Medicine and PET [address] [phone] documented as of this encounter Visit Diagnoses Not on filedocumented in this encounter Care Teams Creative Coordinator Relationship Specialty Start Date End Date None, Provider PCP - General 03/08/16 08/21/18 documented as of this encounter
--- OUTSIDE RECORDS SUMMARY | 2024-01-02 06:22 | XMS_ITS | Encounter Summary ---
Author Organization [facility] Address [address] [place] [address] Care Team Providers Care Recycling Crew Supervisor Name Role Phone Benita Shafer GUSTAVO Primary Care Provider [phone] Reason for Visit * Reason Comments Eye Problem Left eye lid pain an d swelling, onset Tuesday fiordaliza. recent shingle in that eye Encounter Details Date Type Department Care Team (Latest Contact Info) Description 09/06/2018 8:37 EDT - 09/06/2018 10:[address] [facility] - [address] [address] Fran Blanco MD [address] [place] [address] Unknown, ProviderMD Hordeolum externum of left upper [...] Attempted to call Dr Srikanth Levine at [facility] to request patient have follow up appointment [...] beginning of August. She was seen in [place] and had follow-up with the coding advisor, Dr. Jerad Cruz. She reports that her symptoms completely resolved with the initial treatment. However around August 22 she had a rec urrence of the symptoms and was seen in the [facility] ED. 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 Followed by Dr. López/Affiliates in [facility] ??? Family history of rheumatoid arthritis 09/04/2015 Mother, pt with chronic back pain. Told arthritis in spine in teen yrs. ??? Type 2 diabetes mellitus (HCC-CMS) 09/03/2015 Dx approx age 25. Controlled with lifestyle behaviors, wt loss. Had taken lantus in past 80u, Followed by endocrine in [facility]. Stopped few yrs ago until this past month. ??? Anxiety and depression 05/12/2010 Onset teen yrs. Treated with citalopram in approx 2012 - had SI, treated at [facility]. Marijuana prn to help with stress/anxiety sx. [...] [facility], the patient's pain was 8 on a zero to ten scale. Any further pain treatment will be at the discretion of the provider following up with the patient based on their clinical assessment . Condition at departure from the [facility] : Stable MDM 09/06/2018 11:31 [...] [facility] Adult Primary Care - [address] 437[address] Carrington Calderon MD [address] [phone] 02/27/2024 8:[address] [facility] Sleep Program - [address] [phone] Dwight oClbert [address] [place] [phone] 02/29/2024 10:30 EDT Appointment [facility] Radiology Nuclear Medicine and PET - [address] [phone] 02/29/2024 14:30 EDT Appointment [facility] Radiology Nuclear Medicine and PET [address] [phone] 03/01/2024 8:00 EDT Appointment [facility] Radiology Nuclear Medicine and PET - [address] [phone] 03/01/2024 9:30 EDT Appointment [facility] Radiology Nuclear Medicine and PET [address] [phone] documented as of this encounter Visit Diagnoses Diagnosis Hordeolum externum of left upper eyelid- Primary Hordeolum externum Herpes zoster with ophthalmic complication, unspecified herpes zoster eye disease documented in this encounter Orders Nursing Count Last Ordered Date First Orde red Date VISUAL ACUITY SCREENING 1 09/06/2018 documented in this encounter Care Teams Recycling Crew Supervisor Relationship Specialty Start Date End Date Benita Shafer NP PCP - General 08/22/18 06/17/19 documented as of this encounter
--- OUTSIDE RECORDS SUMMARY | 2024-01-02 06:22 | XMS_ITS | Encounter Summary ---
Author Organization [facility] Address [address] [place] [address] Care Team Providers Care Production Truck Driver Name Role Phone None, Provider Primary Care Provider Unavailabl e Reason for Visit * Reason Comments Threatened Miscarriage 6 weeks , started with brown discharge Cher, saw OB said it could be normal spotting. Tonight started with bright red vaginal bleeding. Problem Encounter Details Date Type Department Care Team (Late st Contact Info) Description 02/24/2017 22:50 EDT - 02/25/2017 3:35 EDT Emergency [facility] Emergency Department - Main [place] [address] [place] [address] Kylah Whitaker PA-C [address] [place] [address], Level [address] [place] [address] Emergency, MD Ekaterina Vaginal bleeding [...] be sent through Care Everywhere. * MISCARRIAGE (TUNISIAN) * VAGINAL BLEEDING (TUNISIAN) documented in this encounter Medications at Time [...] suprapubic, and RLQ). Genitourinary: Genitourinary Comments: Female ditching machine operating engineer was present Multiple clots in the vaginal [...] added GLUCOSE, SERUM Final Number for problems 23728 (ED) Final Relevant Data Procedures ED COURSE [...] of 1604. (02:35) Discussed the patient with STARTING GATE DRIVER. (03:07) Reevaluation. Patient endorsed continued pain but [...] Visit [facility] Adult Primary Care - [address] [phone] Carrington Calderon MD [address] [place] [phone] 02/27/2024 8:30 EDT Telemedicine [facility] Sleep Program - [address] [phone] Dwight Colbert [address] [place] [phone] 02/29/2024 10:30 EDT Appointment [facility] Radiology Nuclear Medicine and PET - [address] [phone] 02/29/2024 14:30 EDT Appointment [facility] Radiology Nuclear Medicine and PET [address] [phone] 03/01/2024 8:00 EDT Appointment [facility] Radiology Nuclear Medicine and PET [address] [phone] 03/01/2024 9:30 EDT Appointment [facility] Radiology Nuclear Medicine and PET [address] [phone] documented as of this encounter Procedures Procedure [...] be added GLUCOSE, SERUM 02/25/2017 2:40 EDT [facility] Number for problems [id number] (ED) 02/25/2017 2:40 EDT [facility] TOPOGRAPHY UNKNOWN / Unknown 02/25/2017 2:45 EDT 02/25/2017 2:46 EDT Kylah Whitaker PA-C HEMATOLOGY & PF4 ORD ERABLES [facility] [address] [place] [address] * RAD US PELVIS TRANSABDOMINAL AND TRANSVAGINAL (02/25/2017 1:42 EDT) Anatomical Region Laterality Modality Other 02/25/2017 1:42 EDT 02/25/2017 9:29 EDT Narrative 02/25/2017 9:29 EDT RAD US PELVIS TRANSABDOMINAL AND TRANSVAGINAL ??02/25/2017 1:42 AM Clinical History/Comments: vaginal bleeding Comparison: Per patient, ultrasound examination was obtained February 22, 2017 at her biometrics technician's office. This is not available for review. [...] was obtained February 22, 2017 at her biometrics technician's office. This is not available for review. [...] agree with the findings. Kylah Whitaker PA-C [facility] US ORDERABLES * (ABNORMAL) GLUCOSE, SERUM (02/25/2017 0:52 EDT) Glucose, Serum 280(H) 70 - 100 mg/dl 02/25/2017 3:22 EDT [facility] BLOOD SPECIMEN / Unknown 02/25/2017 0:52 EDT 02/25/2017 1:11 EDT Kylah Whitaker PA-C CHEMISTRY & BLOOD GA S ORDERABLES [facility] [address] [place] [address] * (ABNORMAL) HEMAGRAM AND DIFFERENTIAL (02/25/2017 0:52 EDT) WBC 18.10(H) 4.0 - 12.4 K/cmm 02/25/2017 1:16 [facility] RBC 4.45 3.86 - 5.04 M/cmm 02/25/2017 1:16 [facility] Hemoglobin 13.9 11.6 - 15.2 gm/dl 02/25/2017 1:16 [facility] HCT 38.1 34.9 - 44.4 % 02/25/2017 1:16 [facility] MCV 86 81 - 98 fl 02/25/2017 1:16 [facility] MCH 31.2 26.7 - 33.3 pg 02/25/2017 1:16 [facility] MCHC 36.5(H) 32.1 - 35.9 gm/dl 02/25/2017 1:16 [facility] RDW-CV 11.9 <14.7 % 02/25/2017 1:16 [facility] RDW-SD 37.2 <50.4 fl 02/25/2017 1:16 [facility] PLT 341 141 - 377 K/cmm 02/25/2017 1:16 [facility] MPV 9.4(L) 9.5 - 12.7 fl 02/25/2017 1:16 [facility] Neutrophils 62.0 % 02/25/2017 1:38 [facility] Lymphocytes 29.0 % 02/25/2017 1:38 [facility] Monocytes 6.0 % 02/25/2017 1:38 [facility] Eosinophils 3.0 % 02/25/2017 1:38 [facility] ABS Neutrophils 11.22(H) 2.20 - 8.85 K/cmm 02/25/2017 1:38 [facility] ABS Lymphs 5.25(H) 1.09 - 3.30 K/cmm 02/25/2017 1:38 EDT [facility] ABS Monocytes 1.09(H) 0.1 - 0.8 K/cmm 02/25/2017 1:38 EDT [facility] ABS Eosinophils 0.54 0.03 - 0.61 K/cmm 02/25/2017 1:38 EDT [facility] Type of Diff: Manual 02/25/2017 1:38 EDT [facility] Blood specimen (specimen) BLOOD SPECIMEN / Unknown 02/25/2017 0:52 EDT 02/25/2017 1:11 EDT Kylah Whitaker PA-C PACKAGES & DNA PROBE ORDERABLES Performing Organization Address [facility] Co de Phone Number [facility] [address] [place] [address] * (ABNORMAL) HCG FOR (02/25/2017 0:52 EDT) Quant Beta HCG, Preg 1,604(H) <5 mIU/ml 02/25/2017 2:06 EDT [facility] Comment: Reference Range: Negative = <5 Indeterminate = 5-25 recommend repeat in 48 hours. Positive = >25 Blood specimen (specimen) BLOOD SPECIMEN / Unknown 02/25/2017 0:52 EDT 02/25/2017 1:11 EDT Kylah Whitaker PA-C CHEMISTRY & BLOOD GA S ORDERABLES Performing Organization Address [facility] Co de Phone Number [facility] [address] [place] [address] documented in this encounter Visit Diagnoses Diagnosis [...] STAT 0159 (Given - Provid er: Fran Diaz, RN) HYDROmorphone (DILAUDID) tablet 2 mg (COMPLETED) 2 mg, oral, NOW X1, 1 dose, On Tue02/25/17 at 0315, STAT 0318 (Given - Provid er: Fran Diaz, RN) oxyCODONE-acetaminophen (PERCOCET) 5-325 mg per tablet 1 Tab (COMPLETED) 1 Tablet, oral, NOW X1, 1 dose, On Tue02/25/17 at 0100, STAT 0055 (Given - Provid er: Fran Diaz, RN) documented in this encounter Care Teams Production Truck Driver Relationship Specialty Start Date End Date None, Provider PCP - General 03/08/16 08/21/18 documented as of this encounter
--- OUTSIDE RECORDS SUMMARY | 2024-01-02 06:22 | XMS_ITS | Encounter Summary ---
Author Organization [facility] Address [address] [place] [address] Care Team Providers Care Agricultural Sciences Professor Name Role Phone None, Provider Primary Care Provider Unavailabl e Reason for Visit * Reason Comments Eye Problem Corneal abrasion rig ht eye, happened Tuesday morning upon awakening. No CL wear. No trauma recalled. Started eymycin ointment QID night in ER. Reduced pain, [place] still blurred. Encounter Details Date Type Department Care Team (Late st Contact Info) Description 07/30/2016 12:30 EST Office Visit [facility] Ophthalmology - [address] [address] Broderick Schwartz MD [address] [place] [address], Level [address] [place] [address] Social History Tobacco Use Types [...] Psychiatric: NL Endocrine: Diabetes Hematologic: NL Immunologic: Air Quality Technician: Exposures: Other: Attestation: Allergies include: Citalopram and [facility] [address] [phone] Carrington Calderon MD 1 [facility] Level 1 [place] [address] 02/27/2024 8:30 EDT Telemedicine [facility] Sleep Program - [place] [address] [place] [address] Dwight Colbert [address] [place] [address] 02/29/2024 10:30 EDT [facility] Rad[facility] Nuclear Medicine and PET - [address] [address] 02/29/2024 14:30 EDT Appointment [facility] Radiology Nuclear Medicine and PET [address] [address] 03/01/2024 8:00 EDT Appointment [facility] Radiology Nuclear Medicine and PET [address] [address] 03/01/2024 9:30 EDT Appointment [facility] Radiology Nuclear Medicine and PET [address] [address] documented as of this encounter Visit Diagnoses [...] Normal Normal Vessels Normal Normal Care Teams Agricultural Sciences Professor Relationship Specialty Start Date End Date None, Provider PCP - General 03/08/16 08/21/18 documented as of this encounter
--- OUTSIDE RECORDS SUMMARY | 2024-01-02 06:22 | XMS_ITS | Encounter Summary ---
Author Organization [facility] Address [address] [place] [id number] Care Team Providers Care Carbon Sequestration Plant Manager Name Role Phone None, Provider Primary Care Provider Unavailabl e Reason for Visit * Reason Comments Abscess Encounter Details Date Type Department Care Team (Latest Contact Info) Description 07/15/2016 11:37 EST - 07/15/2016 14:25 EST Hospital Encounter [facility] Ur[facility] - [address] [address] Moy Marquez MD 0 [place] [phone] Unknown, Provider, Perianal abscess (Primary Dx); Nausea and vomiting, intractability of vomiting not specified, unspecified vomiting type; Type 2 diabetes mellitus with complication, unspecified extermination inspector insulin use status ([facility]) Discharge Disposition: Home or Self Care [...] 14:19 EST For your perianal abscess, take [id number]-[id number] Tylenol (acetaminophen) as needed for pain. Keep [...] sent through Care Everywhere. * PERIRECTAL ABSCESS (CYMRAES) documented in this encounter Medications at Time [...] into following up at the [facility]. Certainly follow up acutely as needed otherwise. [...] UA Clear Final Bilirubin Neg Final Specific [place] 1.015 Final pH 5.5 Final Urobilinogen 0.2 Final Nitrite Neg Final Tech ID [id number] Final POCT GLUCOSE - Normal Glucose, POC [...] a primary care doctor; recommenda tion for [facility] was made which the patient was amenable to. Plan: Perirectal abscess - s/p I&D with no purulence expressed - CBC and Diff Diabetes, type 2 - Hemoglobin A1C - BMP - metformin 500 mg BID Follow-up with [facility] DISPOSITION: Discharged The patient's pain was managed to an adequate level weighing risk vs. benefit of further medications. Upon departure from the Emergency Department, the patient's pain was 2 on a zero to ten scale. Condition at departure from the Emergency Department: Stable PCP: Provider None [facility] 07/15/2016 14:10 No flowsheet data found. Callum Vicente MD, 07/15/2016 14:35 Family Medicine PGY 1, Page #[phone] documented in this encounter Plan of Treatment Upcoming Encounters Date Type Department Care Team (Late st Contact Info) Description 02/21/2024 9:45 EDT Office Visit [facility] Adult Primary Care - [address] [phone] Carrington Calderon MD [address] [phone] 02/27/2024 8:30 EDT Telemedicine [facility] Sleep Program - [address] [phone] Dwight Colbert [address] [place] [phone] 02/29/2024 10:30 EDT Appointment [facility] Radiology Nuclear Medicine and PET - [address] [address] 02/29/2024 14:30 EDT Appointment [facility] Radiology Nuclear Medicine and PET - [address] [address] 03/01/2024 8:00 EDT Appointment [facility] Radiology Nuclear Medicine and PET - [address] [address] 03/01/2024 9:30 EDT Appointment [facility] Radiology Nuclear Medicine and PET - [address] [address] documented as of this encounter Procedures Procedure Name Priority Date/Time Associated Diagnosis Comments HEMOGLOBIN A1C STAT 07/15/2016 13:18 EST Type 2 diabetes mellitus with complication, unspecified extermination inspector insulin use status ([facility]) COMPLETE BLOOD COUNT AND DIFFERENTIAL STAT 07/15/2016 13:11 EST Type 2 diabetes mellitus with complication, unspecified extermination inspector insulin use status ([facility]) BASIC METABOLIC PANEL (BMP) STAT 07/15/2016 13:11 EST Nausea and vomiting, intractability of vomiting not specified, unspecified vomiting type POCT GLUCOSE, INTERFACED STAT 07/15/2016 12:28 EST Type 2 diabetes mellitus with complication, unspecified extermination inspector insulin use status ([facility]) URINE SEDIMENT (MICRO) WITHOUT [...] EST) Hemoglobin A1C 11.2 % 07/16/2016 11:24 [facility] Comment: Reference Range: <5.7% Normal 5.7-6.4% Increased risk for diabetes =>6.5% Diagnostic for diabetes (if confirmed) The A1c goal for non adults in general is <7%. The A1c goal for selected patients may be significantly lower than 7% if this can be achieved without significant hypoglycemia or other adverse effects of treatment. Est Avg Glucose 275 mg/dl 7 11:24 [facility] Comment: eAG represents the A1c result expressed as average glucose in mg/dl. Blood specimen (specimen) BLOOD SPECIMEN / Unknown 07/15/2016 13:18 EST 07/15/2016 13:28 EST Callum Vicente MD MPH CHEMISTRY & BLOOD GAS ORDERABLES Performing Organization Address City/State/[facility] Co de Phone Number [facility] [address] [place] [address] * (ABNORMAL) HEMAGRAM AND DIFFERENTIAL (07/15/2016 13:11 EST) WBC 12.30 4.0 - 12.4 K/cmm 07/15/2016 13:30 [facility] RBC 4.88 3.86 - 5.04 M/cmm 07/15/2016 13:30 [facility] Hemoglobin 15.2 11.6 - 15.2 gm/dl 07/15/2016 13:30 [facility] HCT 42.1 34.9 - 44.4 % 07/15/2016 13:30 [facility] MCV 86 81 - 98 fl 07/15/2016 13:30 [facility] MCH 31.1 26.7 - 33.3 pg 07/15/2016 13:30 [facility] MCHC 36.1(H) 32.1 - 35.9 gm/dl 07/15/2016 13:30 [facility] RDW-CV 12.5 11.7 - 14.6 % 07/15/2016 13:30 [facility] RDW-SD 38.5 37.6 - 50.3 fl 07/15/2016 13:30 [facility] PLT 331 141 - 377 K/cmm 07/15/2016 13:30 [facility] MPV 9.5 9.5 - 12.7 fl 07/15/2016 13:30 [facility] % Neutrophils 72.6 % 07/15/2016 13:30 [facility] % Lymphocytes 18.7 % 07/15/2016 13:30 [facility] % Monocytes 7.8 % 07/15/2016 13:30 [facility] % Eosinophils 0.7 % 07/15/2016 13:30 [facility] % Basophils 0.2 % 07/15/2016 13:30 [facility] ABS Neutrophils 8.93(H) 2.20 - 8.85 K/cmm 07/15/2016 13:30 [facility] ABS Lymphs 2.30 1.09 - 3.30 K/cmm 07/15/2016 13:30 [facility] ABS Monocytes 0.96(H) 0.1 - 0.8 K/cmm 07/15/2016 13:30 [facility] ABS Eosinophils 0.09 0.03 - 0.61 K/cmm 07/15/2016 13:30 [facility] ABS Basophils 0.02 0.01 - 0.11 K/cmm 07/15/2016 13:30 [facility] Type of Diff: Automated 07/15/2016 13:30 [facility] Comment:Performed at [place], [place] Blood specimen (specimen) BLOOD SPECIMEN / Unknown 07/15/2016 13:11 EST 07/15/2016 13:27 EST Callum Vicente MD MPH PACKAGES & DNA AK OBE ORDERABLES [facility] [address] [place] [address] * (ABNORMAL) BASIC METABOLIC PANEL (07/15/2016 13:11 EST) Sodium 138 136 - 145 mEq/L 07/15/2016 14:01 [facility] Potassium 4.2 3.5 - 5.0 mEq/L 07/15/2016 14:01 [facility] Chloride 101 96 - 110 mEq/L 07/15/2016 14:01 [facility] CO2 27 22 - 32 mEq/L 07/15/2016 14:01 [facility] Comment:Note new reference r masoud 03/23/16 BUN 9(L) 10 - 26 mg/dl 07/15/2016 14:01 [facility] Creatinine 0.40(L) 0.52 - 1.04 mg/dl 07/15/2016 14:01 [facility] GFR, Calculated 139 >60 ml/min/1.7 3m2 07/15/2016 14:01 [facility] Comment: eGFR calculated using CKD-EPI equation for non Americans. Multiply eGFR by 1.16 for Americans. Calcium 9.2 8.5 - 10.5 mg/dl 07/15/2016 14:01 [facility] Calculated Calcium 9.4 8.5 - 10.5 mg/dl 07/15/2016 14:01 [facility] Comment: Note new formula for calculation in use 03/10/2016 Glucose, Serum 246(H) 70 - 100 mg/dl 07/15/2016 14:01 [facility] Fasting? Unknown 07/15/2016 13:27 [facility] Comment:Performed at [place], [place] Blood specimen (specimen) BLOOD SPECIMEN / Unknown 07/15/2016 13:11 EST 07/15/2016 13:27 EST Callum Vicente MD MPH CHEMISTRY & BLOOD GAS ORDERABLES [facility] [address] [place] [address] * (ABNORMAL) POCT GLUCOSE (07/15/2016 12:28 EST) Glucose, POC 221(A) 70 - 100 mg/dL [facility] Blood specimen (specimen) 07/15/2016 12:28 EST Callum Vicente MD MPH POINT OF CARE [place] T ORDERABLES Performing Organization Address City/[facility]/ZIP Co de Phone Number [facility] [address] [place] [address] * (ABNORMAL) URINALYSIS MICROSCOPIC ONLY (07/15/2016 12:06 EST) WBC, UA less than 1 0 - 5 /HPF 07/15/2016 12:43 EST [facility] RBC, UA 1 to 5 0 - 5 /HPF 07/15/2016 12:43 [facility] Squam Epithel, UA Many(A) None seen /HPF 07/15/2016 12:43 [facility] Renal Epithel, UA None seen None seen /HPF 07/15/2016 12:43 [facility] Bacteria, UA Rare(A) None seen /HPF 07/15/2016 12:43 [facility] Crystals, UA None seen /HPF 07/15/2016 12:43 [facility] Hyaline Casts, UA None seen /LPF 07/15/2016 12:43 [facility] UA Comment Microscopic results 07/15/2016 12:13 [facility] Comment: are unreliable on urines unrefrig >2hrs or refrig >8hrs. Mucus, UA Present 07/15/2016 12:43 [facility] Comment:Performed at [facility], [place], [place] Urine specimen (specimen) URINE / Unknown 07/15/2016 12:06 EST 07/15/2016 12:17 EST Moy Marquez MD URINALYSIS ORDERAB LES [facility] [address] [place] [address] * TEST, URINE (07/15/2016 12:06 EST) Result- Test, Ur Neg Neg 07/15/2016 12:40 [facility] Comment: NOTE: False negative results may occur in women who are beyond 5-8 weeks gestation. Diagnosis of should be based on a correlation of test results with typical clinical signs and symptoms. Performed at [facility], [place], [place] Urine specimen (specimen) URINE / Unknown 07/15/2016 12:06 EST 07/15/2016 12:16 EST Moy Marquez MD URINALYSIS ORDERAB LES [facility] [address] [place] [address] * (ABNORMAL) POCT URINE DIPSTICK (07/15/2016 12:06 EST) Color YELLOW 07/15/2016 12:11 [facility] Clarity, UA Clear 07/15/2016 12:11 [facility] Glucose 2+(A) Neg 07/15/2016 12:11 [facility] Bilirubin Neg Neg 07/15/2016 12:11 [facility] Ketones 1+(A) Neg 07/15/2016 12:11 [facility] Specific [place] 1.015 1.001 - 1.035 07/15/2016 12:11 [facility] Blood 3+(A) Neg 07/15/2016 12:11 [facility] pH 5.5 4.6 - 8.0 07/15/2016 12:11 [facility] Protein Trace(A) Neg 07/15/2016 12:11 [facility] Urobilinogen 0.2 0.2 - 1.0 E.U./dl 07/15/2016 12:11 [facility] Nitrite Neg Neg 07/15/2016 12:11 [facility] Leuk Esterase Trace(A) Neg 07/15/2016 12:11 [facility] infection control practitioner ID [id number] 07/15/2016 12:11 [facility] Comment:Test performed at [facility] Urine specimen (specimen) URINE / Unknown 07/15/2016 12:06 EST 07/15/2016 12:11 EST Moy Marquez MD POINT OF CARE TEST ORDERABLES [facility] [address] [place] [address] documented in this encounter Visit Diagnoses Diagnosis Perianal abscess- Primary Abscess of anal and rectal regions Nausea and vomiting, intractability of vomiting not specified, unspecified vomiting type Type 2 diabetes mellitus with complication, unspecified extermination inspector insulin use status documented in this encounter [...] documented as of this encounter Care Teams Carbon Sequestration Plant Manager Relationship Specialty Start Date End Date None, Provider PCP - General 03/08/16 08/21/18 documented as of this encounter
--- OUTSIDE RECORDS SUMMARY | 2024-01-02 06:22 | XMS_ITS | Encounter Summary ---
Author Organization [facility] Address [address] [place] [address] Care Team Providers Care Payroll Supervisor Name Role Phone Benita Shafer WEBFOCUS DEVELOPER Primary Care Provider [phone] Reason for Visit * Reason Comments Shingles States that she thin ks she is having a shingles flare on face and head, states had outbreak 3 weeks ago in same areas Encounter Details Date Type Department Care Team (Late st Contact Info) Description 08/22/2018 9:08 EDT - 08/22/2018 12:20 EDT Emergency [facility] Emergency Department - [address] [address] Doris Moreno MD [address] [place] [address], Level [address] [place] [phone] Emergency, MD Ekaterina Trigeminal herpes zoster (Primary [...] Type 2 diabetes mellitus without complications-E11.9[ICD-10-CM] Z79.84 intermediate card tender (current) use of oral hypoglycemic drugs-Z79.84[ICD-10-CM] Z79.4 retirement (current) use of insulin-Z79.4[ICD-10-CM] F17.210 Nicotine dependence, [...] is very important. Please follow-up with your binder fixer as previously scheduled. Please contact your primary [...] be sent through Care Everywhere. * SHINGLES (BANGLADESHI) * NEUROPATHIC PAIN (BANGLADESHI) documented in this encounter Medications at Time [...] exam for emergent medical conditions at the [facility] on 08/22/2018 Scribe attestation: This documentation is [...] Value Status Glucose, Fingerstick 234 (*) Final Human Relations Teacher ID [id number] Final POCT GLUCOSE Procedures Procedures ED course/Medical [...] Visit [facility] Adult Primary Care - [address] [address] Carrington Calderon MD [address] [phone] 02/27/2024 8:30 EDT Telemedicine [facility] Sleep Program - [address] [address] Dwight Colbert [address] [place] [phone] 02/29/2024 10:30 EDT Appointment [facility] Radiology Nuclear Medicine and PET [address] [phone] 02/29/2024 14:30 EDT Appointment [facility] Radiology Nuclear Medicine and PET [address] [phone] 03/01/2024 8:00 EDT Appointment [facility] Radiology Nuclear Medicine and PET [address] [id number] 03/01/2024 9:30 EDT Appointment [facility] Radiology Nuclear Medicine and PET [address] [phone] documented as of this encounter Procedures Procedure Name Priority Date/Time Associated Diagnosis Comments GLUCOSE, GLUCOMETER Routine 08/22/2018 1 2:04 EDT documented in this encounter Results * (ABNORMAL) GLUCOSE, GLUCOMETER (08/22/2018 12:04 EDT) Glucose, Fingerstick 234(H) 70 - 100 mg/dl 08/22/2018 12:06 EDT [facility] Human Relations Teacher [place] [id number] 08/22/2018 12:06 EDT [facility] Comment:Test Performed by [facility] BLOOD SPECIMEN / Unknown 08/22/2018 12:04 EDT 08/22/2018 12:06 EDT Provider Unknown CHEMISTRY & BLOOD GA S ORDERABLES [facility] [address] [place] [address] documented in this encounter Visit Diagnoses Diagnosis [...] 08/22/2018 documented in this encounter Care Teams Payroll Supervisor Relationship Specialty Start Date End Date Benita Shafer NP PCP - General 08/22/18 06/17/19 documented as of this encounter
--- OUTSIDE RECORDS SUMMARY | 2024-01-02 06:23 | XMS_ITS | Encounter Summary ---
Author Organization [facility] Address [address] [place] [address] Care Team Providers Care Roll Coverer Name Role Phone Unavailable Primary Care Provider Unavailabl e Encounter Details Date Type Department Care Team (Late st Contact Info) Description 08/19/2004 16:02 [facility] Hospital Encounter [facility] - Other [address] [place] [address] Rosalio Bueno MD [address] [phone] Social History Tobacco Use Types Packs/Day Years Used Date Smoking Tobacco: Every Day Cigarettes 0.5 13.1 Started: 11/10/2010 Smokeless Tobacco: Never Comments:06/13/20 actively try ing to quit about 5-8 cigs/day Alcohol Use Standard Drinks/Week Comments Yes 0 (1 standard drink = 0.6 oz pur e alcohol) rarely C Utilities Answer Date Recorded In the past 12 months has [employer] gas, oil, or water [employer] threatened to shut off services in your [...] in a senior care (including now)? No 06/14/2023 Housing Stability Vital [...] in the past 12 m [facility], were you homeless or living in a senior care (including now)? No 11/15/2023 Interpersonal Safety Answer [...] [facility] - [address] [phone] Carrington Calderon MD [address] [phone] 02/27/2024 8:30 EDT Telemedicine [facility] Sleep Program - [address] [phone] Dwight Colbert [address] [place] [phone] 02/29/2024 10:[address] [facility] Radiology Nuclear Medicine and PET [address] [phone] 02/29/2024 14:[address] [facility] Radiology Nuclear Medicine and PET - [address] [phone] 03/01/2024 8:[address] [facility] Radiology Nuclear Medicine and PET [address] [phone] 03/01/2024 9:[address] [facility] Radiology Nuclear Medicine and PET [address] [phone] documented as of this encounter Visit Diagnoses Not on filedocumented in this encounter Additional Health Concerns Infection Onset Date Last Indicated Resolved Time R/O COVID-19 08/04/2020 08/04/2020 08/04/2020 11:4 0 EST documented as of this encounter
--- OUTSIDE RECORDS SUMMARY | 2024-01-02 06:23 | XMS_ITS | Encounter Summary ---
Author Organization [facility] Address [address] [place] [address] Care Team Providers Care Wire Welder Name Role Phone None, Provider Primary Care Provider Unavailabl e Encounter Details Date Type Department Care Team (Late st Contact Info) Description 08/01/2015 Results Only [facility]- [facility] [phone] Kamini Vega MD [address] [phone] Social History Tobacco Use Types Packs/Day Years [...] [facility] Adult Primary Care - [address] [phone] Carrington Calderon MD [address] [place] [phone] 02/27/2024 8:30 EDT Telemedicine [facility] Sleep Program - [address] [phone] Dwight Colbert [address] [place] [phone] 02/29/2024 10:30 EDT Appointment [facility] Radiology Nuclear Medicine and PET - [address] [phone] 02/29/2024 14:30 EDT Appointment [facility] Radiology Nuclear Medicine and PET [address] [phone] 03/01/2024 8:00 EDT Appointment [facility] Radiology Nuclear Medicine and PET [address] [phone] 03/01/2024 9:30 EDT Appointment [facility] Radiology Nuclear [facility] and PET [address] [phone] documented as of this encounter Procedures Procedure Name Priority Date/Time Associated Diagnosis Comments PROGESTERONE Routine 08/01/2015 9:38 EST documented in this encounter Results * PROGESTERONE (08/01/2015 9:38 EST) Progesterone 9.7 ng/ml 08/01/2015 19:37 EST [facility] Comment: NON- FEMALES: follicular phase: ??<0.2-1.4 ng/mL luteal phase: 3.3-25.6 ng/ml postmenopausal: ??<0.2-0.7 ng/mL FEMALES: first trimester: 11.2-90.0 ng/ml second trimester: 25.6-89.4 ng/ml third trimester: 48.4-422.5 ng/ml ECTOPIC PREGNANCIES: consult pathologist BLOOD SPECIMEN / Unknown 08/01/2015 9:38 EST 08/01/2015 17:36 EST Kamini Vega MD CHEMISTRY & BLOOD GA S ORDERABLES [facility] [address] [place] [address] documented in this encounter Visit Diagnoses Not on filedocumented in this encounter Care Teams Wire Welder Relationship Specialty Start Date End Date None, Provider PCP - General 01/01/15 08/27/15 documented as of this encounter
--- OUTSIDE RECORDS SUMMARY | 2024-01-02 06:23 | XMS_ITS | Encounter Summary ---
Author Organization [facility] Address [address] [place] [address] Care Team Providers Care Outdoor Studies Director Name Role Phone None, Provider Primary Care Provider Unavailabl e Reason for Visit * Reason Comments Foot Injury States a log fell on her left foot about 1 hour ago while swimming. + pain, swelling, tingling, and numbness. Unable to walk on foot. No treatment POURER METAL. 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 Encounter Details Date Type Department Care Team (Late st Contact Info) Description 01/01/2015 0:26 EDT - 01/01/2015 2:25 EDT Emergency [facility] Emergency Department - [address] [id number] Kylah Whitaker PA-C [address] [place] [address], Level 1 [place] [address] Emergency, MD Ekaterina Contusion of [...] be sent through Care Everywhere. * BRUISES (TAJIK) documented in this encounter Medications at Time [...] Unable to walk on foot. No treatment POURER METAL. 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 HPI [...] - Abnormal Glucose, Fingerstick 152 (*) Final Commercial Service Technician ID [id number] Final POCT GLUCOSE Procedures ED COURSE A [...] andwas wheeled out without incident. * Niesha Terjo, RN - 01/01/2015 0042 EDT Ice pack applied to left foot. Call light within reach. Awaiting provider eval. documented in this encounter Plan of Treatment Upcoming Encounters Date Type Department Care Team (Late st Contact Info) Description 02/21/2024 9:45 EDT Office Visit [facility] Adult Primary Care - [address] 446381 Carrington Calderon MD [address] [address] 02/27/2024 8:30 EDT Telemedicine [facility] Sleep Program - [address] [phone] Dwight Colbert [address] [place] [address] [phone] 02/29/2024 10:30 EDT [facility]ointment [facility] Radiology Nuclear Medicine and PET - [address] 443561 02/29/2024 14:30 EDT Appointment [facility] Radiology Nuclear Medicine and PET [address] 181111 03/01/2024 8:00 EDT Appointment [facility] Radiology Nuclear Medicine and PET - [address] 297551 03/01/2024 9:30 EDT Appointment [facility] Radiology Nuclear Medicine and [address] [address] documented as of this encounter Procedures Procedure [...] with the findings. Kylah Whitaker PA-C IMG DIAGNOSTIC IMAGI NG ORDERABLES * (ABNORMAL) GLUCOSE, GLUCOMETER (01/01/2015 0:53 EDT) Glucose, Fingerstick 152(H) 70 - 100 mg/dl 01/01/2015 0:56 EDT [facility] Commercial Service Technician ID [id number] 01/01/2015 0:56 EDT [facility] Comment:Test Performed by Nu rsing Services BLOOD SPECIMEN / Unknown 01/01/2015 0:53 EDT 01/01/2015 0:56 EDT Provider Unknown MD CHEMISTRY & BLOOD GA S ORDERABLES [facility] [address] [place] [address] documented in this encounter Visit Diagnoses Diagnosis [...] 01/01/2015 documented in this encounter Care Teams Outdoor Studies Director Relationship Specialty Start Date End Date None, Provider PCP - General 01/01/15 08/27/15 documented as of this encounter
--- OUTSIDE RECORDS SUMMARY | 2024-01-02 06:23 | XMS_ITS | Encounter Summary ---
Author Organization [facility] Address [address] [place] [address] Care Team Providers Care Assistant Tennis Professional Name Role Phone Unavailable Primary Care Provider Unavailabl e Encounter Details Date Type Department Care Team (Latest Contact Info) Description 06/22/2006 14:50 EST Hospital Encounter [facility] - Other [address] [place] [address] Broderick Ross MD Discharge Disposition: Auto Discharge [...] [facility] - [address] [address] Carrington Calderon MD [address] [phone] 02/27/2024 8:30 EDT Telemedicine [facility] Sleep Program - [address] 437771 Dwight Colbert [address] [place] [address] 02/29/2024 10:30 EDT Appointment [facility]ical Center Radiology Nuclear Medicine and PET - [address] [address] 02/29/2024 14:30 EDT Appointment [facility] Radiology Nuclear Medicine and PET - [address] [address] 03/01/2024 8:00 EDT Appointment [facility] Radiology Nuclear Medicine and PET - [address] [address] 03/01/2024 9:30 EDT [facility] Radiology Nuclear Medicine and PET - [address] [address] documented as of this encounter Visit Diagnoses Not on filedocumented in this encounter
--- OUTSIDE RECORDS SUMMARY | 2024-01-02 06:23 | XMS_ITS | Encounter Summary ---
Author Organization [facility] Address [address] [place] [address] Care Team Providers Care Television Equipment Operator Name Role Phone Madeline Caputo Primary Care Provider [phone]- [phone] Reason for Visit * Reason Comments Blood Sugar Problem NPD Encounter Details Date Type Department Care Team (Latest Contact Info) Description 05/12/2010 15:00 EST Office Visit [facility] Endocrinology - [place] [address] [place], [place] [phone] Fermin Srinivasan MD [address] [place] [address] [address] [place] [address] Diabetes (CMS-HCC) ([facility]) (Primary Dx); Obesity, unspecified Social History Tobacco [...] - 05/12/2010 17:03 EST Recent A1c from [facility] 7.7%. Goal will be less [...] other times similar or higher. Went to [facility] 05/10/10 because of BG 335. C/o [...] 4 siblings, knows about 2, noDM. 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 Very unusual alcohol Activity - [...] tryand work on lifestyle. Seeing dietition ion [facility] next week. Will come back in June. If continues with inadequate control, will consider GLP-1 receptor agonist versus basal insulin. Would not suggest TZD, as potential for weight gain in her is considerable. Plan: Recent A1c from [facility] 7.7%. Goal will be less [...] [facility] Care - [address] 535121 Carrington Calderon MD 1 [facility] 1 [place] [address] 02/27/2024 8:30 EDT Telemedicine [facility] Sleep Program - [address] 162821 Dwight Colbert [address] [place] [address] 02/29/2024 10:[address] [facility] Radiology Nuclear Medicine and PET [address] [id number] 02/29/2024 14:[address] [facility] Radiology Nuclear Medicine and PET [address] 194921 03/01/2024 8:[address] [facility] Radiology Nuclear Medicine and PET [address] 762541 03/01/2024 9:[address] [facility] Radiology Nuclear Medicine and PET [address] [phone] Scheduled Orders Name Type Priority Associated Diagnoses Orde r Schedule POCT HEMOGLOBIN A1C Point of Care Testing Routine Diabetes ([facility]) ([facility]) Ordered: 05/12/2010 documented as of this encounter Visit Diagnoses Diagnosis Diabetes ([facility])- Primary Type II or unspecified type diabetes mellitus without mention of complication, not stated as uncontrolled Obesity, unspecified documented in this encounter Care Teams Television Equipment Operator Relationship Specialty Start Date End Date Madeline Caputo PA [address] [place] [address] PCP - General 05/10/10 12/31/14 documented as of this encounter
--- OUTSIDE RECORDS SUMMARY | 2024-01-02 06:23 | XMS_ITS | Encounter Summary ---
Author Organization [facility] Address [address] [place] [address] Care Team Providers Care Caser In Name Role Phone Madeline Caputo Primary Care Provider [phone]- [phone] Reason for Visit * Reason Comments Hyperglycemia Pt reports 335 FS at 2100, just dx with DM type 2 after thanksgiving started on metformin. Pt reports BUSH and generally not feeling well Encounter Details Date Type Department Care Team (Late st Contact Info) Description 05/10/2010 22:38 EST - 05/11/2010 0:55 EST Emergency [facility] Emergency Department - [address] [phone] Maj Almanza MD [address] [place] [phone] Doris Moreno MD [address] [place] [address], Level 1 [place] [phone] Emergency, MD Ekaterina Hyperglycemia; Bullous myringitis; Bronchitis; [...] 23:40 EST Call endocrine clinic tomorrow at [phone], let them know you were seen in ED and Dr. Mera approved you being seen for expedited New Diabetes appt Continue weight loss efforts Zithromax as prescribed. For second opinion re headaches : call Dr. Poe [phone] For appt. Please return if worsening symptoms or any new concerns. * Attachments The following attachments cannot be sent through Care Everywhere. * BRONCHITIS IN ADULTS: AFTER YOUR VISIT (MICRONESIAN) * DIABETES CARE WHEN YOU ARE SICK: AFTER YOUR VISIT (MICRONESIAN) * DIABETES DIET GUIDELINES: AFTER YOUR VISIT (MICRONESIAN) documented in this encounter Medications at Time [...] doctors office and was referred to the [facility] ED, but pt understood that they refused to see me as they needed to talk to her doctor first. Therefore, she came to [place]. Pt notes recent nasal congestion, cough, and [...] [facility] [place] [address] Carrington Calderon MD [address] [address] 02/27/2024 8:30 EDT Telemedicine [facility] Sleep Program - [address] [place] [address] [place] [address] Dwight Colbert [address] [place] [address] 02/29/2024 10:30 ED[facility] - [address] [address] 02/29/2024 14:30 EDT Appointment [facility] Radiology Nuclear Medicine and PET [address] [address] 03/01/2024 8:00 EDT Appointment [facility] Radiology Nuclear Medicine and PET [address] [address] 03/01/2024 9:30 EDT Appointment [facility] Radiology Nuclear Medicine and PET [address] [address] documented as of this encounter Procedures Procedure [...] Archie MARTÍNEZ POINT OF CARE TEST O RDERADONALDO Performing Organization Address [facility] de Phone Number POINT OF [...] Archie MARTÍNEZ POINT OF CARE TEST O MARILIA Performing Organization Address [facility] de Phone Number POINT OF CARE * ELEVATED GLUCOSE (05/10/2010 22:53 EST) Elevated Glucose Screening glucose greater than 180 mg/dl. Please order follow up hemoglobin A1c. [facility] 05/10/2010 22:5 3 EST 05/10/2010 23:36 EST Maj Archie MARTÍNEZ CHEMISTRY & BLOOD GA S ORDERABLES Performing Organization Address [facility] Co de Phone Number [facility] [address] [place] [address] * (ABNORMAL) HEMAGRAM AND DIFFERENTIAL (05/10/2010 22:53 EST) WBC 11.56 4.0 - 12.4 K/cmm [facility] RBC 4.39 3.86 - 5.04 M/cmm [facility] Hemoglobin 13.6 11.6 - 15.2 gm/dl [facility] HCT 38.5 34.9 - 44.4 [...] [facility] Type of Diff: Automated [facility] Blood specimen (specimen) 05/10/2010 22:53 EST 05/10/2010 23:36 EST Maj Archie MARTÍNEZ PACKAGES & DNA PROBE ORDERABLES [facility] [address] [place] [address] * (ABNORMAL) SCREENING GLUCOSE (05/10/2010 22:53 EST) Glucose, Screening 238(H) 70 - 100 mg/dl [facility] Blood specimen (specimen) 05/10/2010 22:53 EST 05/10/2010 23:36 EST Maj Archie MARTÍNEZ CHEMISTRY & BLOOD GA S ORDERABLES Performing Organization Address [facility] de Phone Number [facility] [address] [place] [address] * CREATININE (05/10/2010 22:53 EST) Creatinine 0.80 0.7 - 1.5 mg/dl [facility] GFR, Calculated >60 ml/min/1.7 3m2 [facility] Blood specimen (specimen) 05/10/2010 22:53 EST 05/10/2010 23:36 EST Maj Archie MARTÍNEZ CHEMISTRY & BLOOD GA S ORDERABLES Performing Organization Address [facility] de Phone Number [facility] [address] [place] [address] * BUN (05/10/2010 22:53 EST) BUN 12 10 - 26 mg/dl [facility] Blood specimen (specimen) 05/10/2010 22:53 EST 05/10/2010 23:36 EST Maj Archie MARTÍNEZ CHEMISTRY & BLOOD GA S ORDERABLES Performing Organization Address [facility] de Phone Number [facility] [address] [place] [address] * ELECTROLYTES (05/10/2010 22:53 EST) Sodium 138 136 - 145 mEq/L [facility] Potassium 4.4 3.5 - 5.0 mEq/L [facility] Chloride 98 96 - 110 mEq/L [facility] CO2 29 24 - 32 mEq/L [facility] Blood specimen (specimen) 05/10/2010 22:53 EST 05/10/2010 23:36 EST Maj Archie MARTÍNEZ CHEMISTRY & BLOOD GA S ORDERABLES [facility] [address] [place] [address] documented in this encounter Visit Diagnoses Diagnosis [...] 05/10 documented in this encounter Care Teams Caser In Relationship Specialty Start Date End Date Madeline Caputo PA [address] [place] [address] PCP - General 05/10/10 12/31/14 documented as of this encounter
--- OUTSIDE RECORDS SUMMARY | 2024-01-02 06:23 | XMS_ITS | Encounter Summary ---
Author Organization [facility] Address [address] [place] [address] Care Team Providers Care Dip Lube Operator Name Role Phone None, Provider Primary Care Provider Unavailabl e Encounter Details Date Type Department Care Team (Late st Contact Info) Description 08/01/2015 10:45 EST - 08/01/2015 10:46 EST Hospital Encounter [address] [address] Kamini Vega MD 111 [facility] 4 [place] [phone] Discharge Disposition: Home or Self Care Social [...] Visit [facility] Adult Primary Care - [address] [address] Carrington Calderon MD [address] [address] 02/27/2024 8:30 EDT Telemedicine [facility] Sleep Program - [address] [address] Dwight Colbert [address] [place] [address] 02/29/2024 10:30 EDT Appointment [facility] Radiology Nuclear Medicine and PET - [address] 830591 02/29/2024 14:30 EDT Appointment [facility] Radiology Nuclear Medicine and PET [address] 925001 03/01/2024 8:00 EDT Appointment [facility] Radiology Nuclear Medicine and PET [address] 739761 03/01/2024 9:30 EDT Appointment [facility] Radiology Nuclear Medicine and PET [address] [address] documented as of this encounter Visit Diagnoses Not on filedocumented in this encounter Care Teams Dip Lube Operator Relationship Specialty Start Date End Date None, Provider PCP - General 01/01/15 08/27/15 documented as of this encounter
--- OUTSIDE RECORDS SUMMARY | 2024-01-02 06:23 | XMS_ITS | Encounter Summary ---
Author Organization [facility] Address [address] [place] [address] Care Team Providers Care Brooch Maker Novelty Name Role Phone None, Provider Primary Care Provider Unavailabl e Encounter Details Date Type Department Care Team (Late st Contact Info) Description 02/11/2015 Results Only [facility] [phone] [address] [address] Social History Tobacco Use Types [...] [facility] Adult Primary Care - [address] [address] Carrington Calderon MD [address] [phone] 02/27/2024 8:30 EDT Telemedicine [facility] Sleep Program - [address] [phone] Dwight Colbert [address] [place] [address] 02/29/2024 10:30 EDT Appointment [facility] Radiology Nuclear Medicine and PET [address] 328131 02/29/2024 14:30 EDT Appointment [facility] Radiology Nuclear Medicine and PET [address] 994301 03/01/2024 8:00 EDT Appointment [facility] Radiology Nuclear Medicine and PET [address] 187211 03/01/2024 9:30 EDT Appointment [facility] Radiology Nuclear Medicine and PET [address] [address] documented as of this encounter Procedures Procedure Name Priority Date/Time Associated Diagnosis Comments BLOOD TYPE FOR PRENATALS- AMBULATORY Routine 02/11/2015 14:34 EDT ANTIBODY SCREEN- AMBULATORY ORDER ONLY Routine 02/11/2015 14:34 EDT documented in this encounter Results * ANTIBODY SCREEN- AMBULATORY ORDER ONLY (02/11/2015 14:34 EDT) Antibody Screen Neg 02/11/2015 22:52 EDT [facility] BLOOD SPECIMEN / Unknown 02/11/2015 14:34 EDT 02/11/2015 20:49 EDT Alaina Miranda [facility] BLOOD BANK TESTS [facility] [address] [place] [address] * BLOOD TYPE FOR PRENATALS- AMBULATORY (02/11/2015 14:34 EDT) ABO and Rh Type B NEG 02/11/2015 22:52 EDT [facility] BLOOD SPECIMEN / Unknown 02/11/2015 14:34 EDT 02/11/2015 20:49 EDT Alaina Miranda CNM BLOOD BANK ORDERABLE S [facility] [address] [place] [address] documented in this encounter Visit Diagnoses Not on filedocumented in this encounter Care Teams Brooch Maker Novelty Relationship Specialty Start Date End Date None, Provider PCP - General 01/01/15 08/27/15 documented as of this encounter
--- OUTSIDE RECORDS SUMMARY | 2024-01-02 06:23 | XMS_ITS | Encounter Summary ---
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 For hobbies, she [...] 5 feet 4 inches and her weight [id number]. On examination of the patients anterior chest, [...] that the procedure was done as a [id number] admission with general anesthesia and that the [...] MD - Erich Ross MD A - [facility] Job ID: [id number] Document ID: [id number] cc: JUNE Plata MD documented in this encounter Plan of Treatment Upcoming Encounters Date Type Department Care Team (Late st Contact Info) Description 02/21/2024 9:45 EDT Office Visit [facility] Adult Primary Care - [address] [address] Carrington Calderon MD [address] [phone] 02/27/2024 8:30 EDT Telemedicine [facility] Sleep Program - [address] [address] ColbertDwight garner [address] [place] [phone] 02/29/2024 10:30 EDT [facility]ointment [facility] Radiology Nuclear Medicine and PET - [address] 095741 02/29/2024 14:30 EDT Appointment [facility] Radiology Nuclear Medicine and PET - [address] 809101 03/01/2024 8:00 EDT Appointment [facility] Radiology Nuclear Medicine and PET - [address] [phone] 03/01/2024 9:30 EDT [facility]ointment [facility] Radiology Nuclear Medicine and PET - [address] [phone] documented as of this encounter Visit Diagnoses Not on filedocumented in this encounter
--- OUTSIDE RECORDS SUMMARY | 2024-01-02 06:23 | XMS_ITS | Encounter Summary ---
Author Organization [facility] Address [address] [place] [address] Care Team Providers Care Coating Machine Helper Name Role Phone Unavailable Primary Care Provider Unavailabl e Encounter Details Date Type Department Care Team (Latest Contact Info) Description 12/02/2005 17:43 EDT Hospital Encounter [facility] - Maple conversion [address] [place] [address] Villa Rodriguez MD Discharge Disposition: Auto Discharge [...] [facility] Adult Primary Care - [address] 067331 Carrington Calderon MD [address] [address] 02/27/2024 8:30 EDT Telemedicine [facility] Sleep Program - [address] [phone] Dwight Colbert [address] [place], [place] [address] 02/29/2024 10:30 EDT [facility]ointment [facility] Radiology Nuclear Medicine and PET - [address] [phone] 02/29/2024 14:30 EDT [facility] Rad[facility] Nuclear Medicine and PET - [address] [address] 03/01/2024 8:00 EDT Appointment [facility] Radiology Nuclear Medicine and PET - [address] [phone] 03/01/2024 9:30 EDT Appointment [facility] Radiology Nuclear Medicine and PET - [address] [phone] documented as of this encounter Visit Diagnoses Not on filedocumented in this encounter
--- OUTSIDE RECORDS SUMMARY | 2024-01-02 06:23 | XMS_ITS | Encounter Summary ---
Author Organization [facility] Address [address] [place] [address] Care Team Providers Care Director Of Guidance Name Role Phone None, Provider Primary Care Provider Unavailabl e Encounter Details Date Type Department Care Team (Late st Contact Info) Description 08/22/2015 Documentation Visit [facility] - [address] [phone] Broderick Wolff MD 111 [facility], Level [address] [place] [address] Social History Tobacco Use Types [...] Office Visit [facility] Adult Primary Care - [address] [address] Carrington Calderon MD 1 [facility] 1 [place] [address] 02/27/2024 8:30 EDT Telemedicine [facility] Sleep Program - [address] [address] Dwight Colbert [address] [place] [address] 02/29/2024 10:30 ED[facility] [address] 774581 02/29/2024 14:30 EDT Appointment [facility] Radiology Nuclear Medicine and PET [address] 413851 03/01/2024 8:00 EDT Appointment [facility] Radiology Nuclear Medicine and PET [address] [address]1911 03/01/2024 9:30 EDT Appointment [facility] Radiology Nuclear Medicine and PET [address] 373831 documented as of this encounter Visit Diagnoses Not on filedocumented in this encounter Care Teams Director Of Guidance Relationship Specialty Start Date End Date None, Provider PCP - General 01/01/15 08/27/15 documented as of this encounter
--- OUTSIDE RECORDS SUMMARY | 2024-01-02 06:23 | XMS_ITS | Encounter Summary ---
Author Organization [facility] Address [address] [place] [address] Care Team Providers Care Amr Physician Name Role Phone Unavailable Primary Care Provider Unavailabl e Encounter Details Date Type Department Care Team (Late st Contact Info) Description 12/22/2005 11:[address] [facility] - Maple conversion [address] [place] [address] Fermin Lovett MD Social History Tobacco Use Types Packs/Day Years Used Date Smoking Tobacco: Every Day Cigarettes 0.5 13.1 Started: 11/10/2010 Smokeless Tobacco: Never Comments:06/13/20 actively try ing to quit about 5-8 cigs/day Alcohol Use Standard Drinks/Week Comments Yes 0 (1 standard drink = 0.6 oz pur e alcohol) rarely C Utilities Answer Date Recorded In the past 12 months has [employer], gas, oil, or water [employer] threatened to shut off services in your [...] [facility] Adult Primary Care - [address] [phone] Carrington Calderon MD [address] [phone] 02/27/2024 8:[address] [facility] Sleep Program - [address] [phone] Dwight Colbert [address] [place] [address] [phone] 02/29/2024 10:30 EDT Appointment [facility] Radiology Nuclear Medicine and PET [address] [phone] 02/29/2024 14:30 EDT Appointment [facility] Radiology Nuclear Medicine and PET [address] [id number] 03/01/2024 8:00 EDT Appointment [facility] Radiology Nuclear Medicine and PET [address] [phone] 03/01/2024 9:30 EDT Appointment [facility] Radiology Nuclear Medicine and PET [address] [phone] documented as of this encounter Visit Diagnoses Not on filedocumented in this encounter Additional Health Concerns Infection Onset Date Last Indicated Resolved Time R/O COVID-19 08/04/2020 08/04/2020 08/04/2020 11:4 0 EST documented as of this encounter
--- OUTSIDE RECORDS SUMMARY | 2024-01-02 06:23 | XMS_ITS | Encounter Summary ---
Author Organization [facility] Address [address] [place] [address] Care Team Providers Care Commercial Solar Sales Consultant Name Role Phone Unavailable Primary Care Provider Unavailabl e Encounter Details Date Type Department Care Team (Late st Contact Info) Description 03/31/2005 1:30 EDT Hospital Encounter [facility] - Other [address] [place] [address] Bhupendra Mayo MD 111 [facility] Level 4 [place] [phone] Social History Tobacco Use Types Packs/Day Years Used Date Smoking Tobacco: Every Day Cigarettes 0.5 13.1 Started: 11/10/2010 Smokeless Tobacco: Never Comments:06/13/20 actively try ing to quit about 5-8 cigs/day Alcohol Use Standard Drinks/Week Comments Yes 0 (1 standard drink = 0.6 oz pur e alcohol) rarely [facility] Utilities Answer Date Recorded In the past 12 months has [employer], gas, oil, or water [employer] threatened to shut off services in your [...] any time in the past 12 m [facility], were you homeless or living in a [...] [facility] Adult Primary Care - [address] 727441 Carrington Calderon MD [address] [phone] 02/27/2024 8:30 EDT Telemedicine [facility] Sleep Program - [address] 185751 Dwight Colbert [address] [place] [address] [phone] 02/29/2024 10:30 EDT Appointment [facility] Radiology Nuclear Medicine and PET [address] [phone] 02/29/2024 14:30 EDT Appointment [facility] Radiology Nuclear Medicine and PET [address] [phone] 03/01/2024 8:00 EDT Appointment [facility] Radiology Nuclear Medicine and PET [address] [phone] 03/01/2024 9:30 EDT Appointment [facility] Radiology Nuclear Medicine and PET [address] [phone] documented as of this encounter Procedures Procedure [...] GA S ORDERABLES [facility] [address] [place] [address] documented in this encounter Visit Diagnoses Not on filedocumented in this encounter Additional Health Concerns Infection Onset Date Last Indicated Resolved Time R/O COVID-19 08/04/2020 08/04/2020 08/04/2020 11:4 0 EST documented as of this encounter
--- OUTSIDE RECORDS SUMMARY | 2024-01-02 06:23 | XMS_ITS | Encounter Summary ---
Author Organization [facility] Address [address] [place] [address] Care Team Providers Care Receiving Tank Operator Name Role Phone Unavailable Primary Care Provider Unavailabl e Encounter Details Date Type Department Care Team (Latest Contact Info) Description 01/24/2006 14:06 EDT Hospital Encounter [facility] - Maple conversion [address] [place] [address] Felix Merritt III, MD 1 [place], [place] [address]081 Discharge Disposition: Auto Discharge Social History Tobacco [...] [facility] Adult Primary Care - [address] 164031 Carrington Calderon MD [address] [phone] 02/27/2024 8:30 EDT Telemedicine [facility] Sleep Program - [address] [address] Dwight Burrell [address] [place], [place] 798581 02/29/2024 10:30 EDT [facility] [address] [phone] 02/29/2024 14:30 EDT Appointment [facility] Radiology Nuclear Medicine and PET [address] [phone] 03/01/2024 8:00 EDT Appointment [facility] Radiology Nuclear Medicine and PET [address] [phone] 03/01/2024 9:30 EDT Appointment [facility] Radiology Nuclear Medicine and PET [address] [id number] documented as of this encounter Procedures Procedure Name Priority Date/Time Associated Diagnosis Comments COMPLETE BLOOD COUNT Routine 01/24/2006 16:03 EDT TSH Routine 01/24/2006 16:03 EDT COMPREHENSIVE METABOLIC PANEL (CMP) Routine 01/24/2006 16:03 EDT documented in this encounter Results * TSH (01/24/2006 16:03 EDT) TSH 1.13 0.35 - 5.00 uIU/mL [facility] 01/24/2006 16:0 3 EDT 01/24/2006 18:49 EDT Fermin Trejo MD CHEMISTRY & BLOOD GA S ORDERABLES [facility] [address] [place] [address] * (ABNORMAL) COMPREHENSIVE METABOLIC PANEL (01/24/2006 16:03 EDT) Potassium 4.0 3.5 - 5.0 mEq/L [facility] Sodium 141 136 - 145 mEq/L [facility] Chloride 104 96 - 110 mEq/L [facility] CO2 29 24 - 32 mEq/L [facility] Total Alkaline Phosphatase 103 38 - [...] LAB GFR, Calculated >60 ml/min/1.7 3m2 [facility] BUN 9(L) 10 - 26 mg/dl [facility] Calcium 9.4 8.5 - 10.5 mg/dl [facility] Calculated Calcium 9.6 8.5 - 10.5 mg/dl [facility] Glucose, Serum 106(H) 70 - 100 mg/dl [facility] Fasting? Yes [facility] Albumin/Globulin Ratio 1.4 [facility] 01/24/2006 16:0 3 EDT 01/24/2006 18:49 EDT Fermin Trejo MD CHEMISTRY & BLOOD GA S ORDERABLES [facility] [address] [place] [address] * (ABNORMAL) HEMAGRAM (01/24/2006 16:03 EDT) WBC 12.11 4.0 - 12.4 K/cmm [facility] RBC 4.48 3.86 - 5.04 M/cmm [facility] Hemoglobin 13.2 11.6 - 15.2 gm/dl [facility] HCT 39.0 34.9 - 44.4 % [facility] MCV 87 81 - 98 fl [facility] MCH 29.4 26.7 - 33.3 pg [facility] MCHC 33.8 32.1 - 35.9 gm/dl [facility] PLT 457(H) 141 - 320 K/cmm [facility] RDW-CV 13.0 11.7 - 14.6 % [facility] 01/24/2006 16:0 3 EDT 01/24/2006 18:49 EDT Fermin Trejo MD HEMATOLOGY & PF4 ORD ERABLES Performing Organization Address City/State/[facility] Co de Phone Number [facility] [address] [place] [address] documented in this encounter Visit Diagnoses Not on filedocumented in this encounter
--- OUTSIDE RECORDS SUMMARY | 2024-01-02 06:23 | XMS_ITS | Encounter Summary ---
Author Organization [facility] Address [address] [place] [address] Care Team Providers Care Composition Board Press Operator Name Role Phone Unavailable Primary Care Provider Unavailabl e Encounter Details Date Type Department Care Team (Late st Contact Info) Description 09/27/2006 9:23 EDT Hospital Encounter [facility] - Maple conversion [address] [place] [address] Fermin Lovett MD Social History Tobacco Use Types Packs/Day Years Used Date Smoking Tobacco: Every Day Cigarettes 0.5 13.1 Started: 11/10/2010 Smokeless Tobacco: Never Comments:06/13/20 actively try ing to quit about 5-8 cigs/day Alcohol Use Standard Drinks/Week Comments Yes 0 (1 standard drink = 0.6 oz pur e alcohol) rarely C Utilities Answer Date Recorded In the past 12 months has [employer], gas, oil, or water [employer] threatened to shut off services in your [...] slept in a assisted (including now)? No 06/14/2023 Housing Stability Vital Sign Answer Norm e Recorded In the last 12 months, was t here a time when you were not able to pay the mortgage or rent on time? No 11/15/2023 In the past 12 months, how m any times have you moved where you were living? 1 11/15/2023 At any time in the past 12 m [facility], were you homeless or living in a assisted (including now)? No 11/15/2023 Interpersonal Safety Answer [...] [facility] - [address] 740371 Carrington Calderon MD [address] [phone] 02/27/2024 8:30 EDT Telemedicine [facility] Sleep Program - [address] [phone] Dwight Colbert [address] [place] [address] [phone] 02/29/2024 10:30 EDT Appointment [facility] Radiology Nuclear Medicine and PET [address] [phone] 02/29/2024 14:30 EDT Appointment [facility] Radiology Nuclear Medicine and PET [address] [phone] 03/01/2024 8:00 EDT Appointment [facility] Radiology Nuclear Medicine and PET [address] [phone] 03/01/2024 9:30 EDT Appointment [facility] Radiology Nuclear Medicine and PET [address] [phone] documented as of this encounter Procedures Procedure Name Priority Date/Time Associated Diagnosis Comments SED RATE Routine 09/27/2006 10:36 EDT COMPLETE BLOOD COUNT AND DIFFERENTIAL Routine 09/27/2006 10:36 EDT COMPREHENSIVE METABOLIC PANEL (CMP) Routine 09/27/2006 10:36 EDT documented in this encounter Results * (ABNORMAL) SED. RATE:MARLYN (09/27/2006 10:36 EDT) Pathologist [facility] Sed. Rate Marlyn 47(H) 0 - 20 mm/hr [facility] Comment: Note: Sample greater than 4 hrs old (but less than 12 hrs) when tested. If refrigerated, sample is stable when tested within 12 hours of collection. 09/27/2006 10:3 6 EDT 09/27/2006 16:29 EDT Fermin Lovett MD HEMATOLOGY & P F4 ORDERABLES [facility] [address] [place] [address] * (ABNORMAL) COMPREHENSIVE METABOLIC PANEL (09/27/2006 10:36 EDT) Pathologist [facility] Potassium 4.3 3.5 - 5.0 mEq/L [facility] Sodium 141 136 - 145 mEq/L [facility] Chloride 105 96 - 110 mEq/L [facility] CO2 29 24 - 32 mEq/L [facility] Total Alkaline Phosphatase 113 38 - 126 U/L [facility] Bilirubin, Total <0.5 0.2 - 1.3 mg/dl [facility] AST 38 15 - 46 U/L [facility] ALT 65(H) 9 - 52 U/L [facility] Albumin 4.5 3.4 - 4.9 g/dl [facility] Total Protein 7.4 6.5 - 8.3 g/dl [facility] Creatinine 0.81 0.7 - 1.5 mg/dl [facility] GFR, Calculated >60 ml/min/1.7 3m2 [facility] BUN 10 10 - 26 mg/dl [facility] Calcium 10.5 8.5 - 10.5 mg/dl [facility] Calculated Calcium 10.4 8.5 - 10.5 mg/dl [facility] Glucose, Serum 98 70 - 100 mg/dl [facility] Fasting? Yes [facility] Albumin/Globulin Ratio 1.6 [facility] 09/27/2006 10:3 6 EDT 09/27/2006 16:29 EDT Fermin Lovett MD CHEMISTRY & BL OOD GAS ORDERABLES [facility] [address] [place] [address] * (ABNORMAL) HEMAGRAM AND DIFFERENTIAL (09/27/2006 10:36 EDT) WBC 8.21 4.0 - 12.4 K/cmm [facility] RBC 4.65 3.86 - 5.04 M/cmm [facility] Hemoglobin 14.0 11.6 - 15.2 gm/dl [facility] HCT 40.5 34.9 - 44.4 % [facility] MCV 87 81 - 98 fl [facility] MCH 30.1 26.7 - 33.3 pg [facility] MCHC 34.5 32.1 - 35.9 gm/dl [...] Neutrophils 4.89 2.20 - 8.85 K/cmm [facility] ABS Lymphs 2.58 1.09 - 3.30 K/cmm [facility] Monocytes 0.60 0.1 - 0.8 K/cmm [facility] Eosinophils 0.10 0.03 - 0.61 K/cmm [facility] ABS Basophils 0.04 0.01 - 0.11 K/cmm [facility] Type of Diff: Automated [facility] 09/27/2006 10:3 6 EDT 09/27/2006 16:29 EDT Fermin Lovett MD PACKAGES & DNA PROBE ORDERABLES Performing Organization Address City/State/[facility] Co de Phone Number [facility] [address] [place] [address] documented in this encounter Visit Diagnoses Not on filedocumented in this encounter Additional Health Concerns Infection Onset Date Last Indicated Resolved Time R/O COVID-19 08/04/2020 08/04/2020 08/04/2020 11:4 0 EST documented as of this encounter
--- OUTSIDE RECORDS SUMMARY | 2024-01-02 06:23 | XMS_ITS | Encounter Summary ---
Author Organization [facility] Address [address] [place] [address] Care Team Providers Care Homicide Squad Captain Name Role Phone Unavailable Primary Care Provider Unavailabl e Encounter Details Date Type Department Care Team (Late st Contact Info) Description 09/27/2005 9:47 EDT Hospital Encounter [facility] [address] [place] [address] Oscar Moreno MD MSc [address] [place] [phone] Social History Tobacco Use Types Packs/Day Years Used Date Smoking Tobacco: Every Day Cigarettes 0.5 13.1 Started: 11/10/2010 Smokeless Tobacco: Never Comments:06/13/20 actively try ing to quit about 5-8 cigs/day Alcohol Use Standard Drinks/Week Comments Yes 0 (1 standard drink = 0.6 oz pur e alcohol) rarely [facility] Utilities Answer Date Recorded In the past [address], gas, oil, or water [employer] threatened to shut off services in your [...] [facility] [place] Adult Primary Care - [address] 412291 Carrington Calderon MD [address] [phone] 02/27/2024 8:30 EDT Telemedicine [facility] [place] Sleep Program - [address] [phone] Dwight Colbert [address] [place] [address] [phone] 02/29/2024 10:30 EDT Appointment [facility] Radiology Nuclear Medicine and PET [address] [phone] 02/29/2024 14:30 EDT Appointment [facility] Radiology Nuclear Medicine and PET [address] [phone] 03/01/2024 8:00 EDT Appointment [facility] Radiology Nuclear Medicine and PET [address] [phone] 03/01/2024 9:30 EDT Appointment [facility] Radiology Nuclear Medicine and PET [address] [phone] documented as of this encounter Visit Diagnoses Not on filedocumented in this encounter Additional Health Concerns Infection Onset Date Last Indicated Resolved Time R/O COVID-19 08/04/2020 08/04/2020 08/04/2020 11:4 0 EST documented as of this encounter
--- OUTSIDE RECORDS SUMMARY | 2024-01-02 06:23 | XMS_ITS | Encounter Summary ---
Author Organization [facility] Address [address] [place] [address] Care Team Providers Care Steffen House Supervisor Name Role Phone Unavailable Primary Care Provider Unavailabl e Encounter Details Date Type Department Care Team (Late st Contact Info) Description 04/29/2006 8:02 [facility] Hospital Encounter [facility] - Maple conversion [address] [place] [address] Fermin Trejo MD [place], Stephanie S [address] [place] [phone] Social History Tobacco Use Types Packs/Day Years Used Date Smoking Tobacco: Every Day Cigarettes 0.5 13.1 Started: 11/10/2010 Smokeless Tobacco: Never Comments:06/13/20 actively try ing to quit about 5-8 cigs/day Alcohol Use Standard Drinks/Week Comments Yes 0 (1 standard drink = 0.6 oz pur e alcohol) rarely [facility] Utilities Answer Date Recorded In the past 12 months has [employer], gas, oil, or water [employer] threatened to shut off services in [...] time in the past 12 m [facility], were you homeless or living in a [...] Description 02/21/2024 9:45 EDT Office Visit [facility] Adult Primary Care - [address] 100291 Carrington Calderon MD [address] [phone] 02/27/2024 8:30 EDT Telemedicine [facility] Sleep Program - [address] [phone] Dwight Colbert [address] [place] [address] [phone] 02/29/2024 10:30 EDT Appointment [facility] Radiology Nuclear Medicine and PET [address] [phone] 02/29/2024 14:30 EDT Appointment [facility] Radiology Nuclear Medicine and PET - [address] [phone] 03/01/2024 8:00 EDT Appointment [facility] Radiology Nuclear Medicine and PET [address] [phone] 03/01/2024 9:30 EDT Appointment [facility] Radiology Nuclear Medicine and PET [address] [phone] documented as of this encounter Visit Diagnoses Not on filedocumented in this encounter Additional Health Concerns Infection Onset Date Last Indicated Resolved Time R/O COVID-19 08/04/2020 08/04/2020 08/04/2020 11:4 0 EST documented as of this encounter
--- OUTSIDE RECORDS SUMMARY | 2024-01-02 06:23 | XMS_ITS | Encounter Summary ---
Author Organization [facility] Address [address] [place] [address] Care Team Providers Care Razor Sharpener Name Role Phone Jasmin Jara Primary Care Provider Unavail able Encounter Details Date Type Department Care Team (Late st Contact Info) Description 10/20/2009 Abstract [facility] Plastic, Reconstructive & Cosmetic Surgery - [address], [address] [place] [address] Jasmin Jara PA Social History Tobacco Use [...] [facility] - [address] [phone] Carrington Calderon MD [address] [phone] 02/27/2024 8:30 EDT Telemedicine [facility] Sleep Program - [address] [phone] Dwight Colbert [address] [place], [place] [phone] 02/29/2024 10:30 EDT [facility] Radiology Nuclear Medicine and PET - [address] [address] 02/29/2024 14:30 EDT Appointment [facility] Radiology Nuclear Medicine and PET [address] [address] 03/01/2024 8:00 EDT Appointment [facility] Radiology Nuclear Medicine and PET [address] [address] 03/01/2024 9:30 EDT Appointment [facility] Radiology Nuclear Medicine and PET [address] [phone] documented as of this encounter Visit Diagnoses Not on filedocumented in this encounter Care Teams Razor Sharpener Relationship Specialty Start Date End Date Jasmin aJra PA PCP - General 10/06/09 05/09/10 documented as of this encounter
--- OUTSIDE RECORDS SUMMARY | 2024-01-02 06:23 | XMS_ITS | Encounter Summary ---
Author Organization [facility] Address [address] [place] [address] Care Team Providers Care Personal Protection Specialist Name Role Phone None, Provider Primary Care Provider Unavailabl e Encounter Details Date Type Department Care Team (Late st Contact Info) Description 07/23/2015 Results Only [facility] [phone] Robyn Bautista MD [address] [place] [phone] Social History Tobacco Use Types Packs/Day Years [...] [facility] - [address] [phone] Carrington Calderon MD [address] [phone] 02/27/2024 8:30 EDT Telemedicine [facility] Sleep Program - [address] [phone] Dwight Colbert [address] [place] [address] 02/29/2024 10:[address] [facility] Nuclear Medicine and PET - [address] [address] 02/29/2024 14:30 EDT Appointment [facility] Radiology Nuclear Medicine and PET [address] [phone] 03/01/2024 8:00 EDT Appointment [facility] Radiology Nuclear Medicine and PET [address] [phone] 03/01/2024 9:30 EDT Appointment [facility] Radiology Nuclear Medicine and PET [address] [phone] documented as of this encounter Procedures Procedure Name Priority Date/Time Associated Diagnosis Comments PROGESTERONE Routine 07/23/2015 8:56 EST QUANT BETA HCG, Routine 07/23/2015 8:56 EST documented in this encounter Results * PROGESTERONE (07/23/2015 8:56 EST) Progesterone 9.5 ng/ml 07/23/2015 11:47 EST [facility] Comment: NON- FEMALES: follicular phase: ??<0.2-1.4 ng/mL luteal phase: 3.3-25.6 ng/ml postmenopausal: ??<0.2-0.7 ng/mL FEMALES: first trimester: 11.2-90.0 ng/ml second trimester: 25.6-89.4 ng/ml third trimester: 48.4-422.5 ng/ml ECTOPIC PREGNANCIES: consult pathologist BLOOD SPECIMEN / Unknown 07/23/2015 8:56 EST 07/23/2015 10:06 EST Robyn Bautista MD CHEMISTRY & BL OOD GAS ORDERABLES [facility] [address] [place] [address] * (ABNORMAL) HCG FOR (07/23/2015 8:56 EST) Quant Beta HCG, Preg 2,093(H) <5 mIU/ml 07/23/2015 10:55 EST [facility] Comment: Reference Range: Negative = <5 Indeterminate = 5-25 recommend repeat in 48 hours. Positive = >25 BLOOD SPECIMEN / Unknown 07/23/2015 8:56 EST 07/23/2015 10:06 EST Robyn Bautista MD CHEMISTRY & BL OOD GAS ORDERABLES [facility] [address] [place] [address] documented in this encounter Visit Diagnoses Not on filedocumented in this encounter Care Teams Personal Protection Specialist Relationship Specialty Start Date End Date None, Provider PCP - General 01/01/15 08/27/15 documented as of this encounter
--- OUTSIDE RECORDS SUMMARY | 2024-01-02 06:23 | XMS_ITS | Encounter Summary ---
Author Organization [facility] Address [address] [place] [address] Care Team Providers Care Dining Room Captain Name Role Phone Unavailable Primary Care Provider Unavailabl e Encounter Details Date Type Department Care Team (Late st Contact Info) Description 05/27/2006 9:45 EST Hospital Encounter [facility] - Maple conversion [address] [place] [address] Fermin Lovett MD Social History Tobacco Use Types Packs/Day Years Used Date Smoking Tobacco: Every Day Cigarettes 0.5 13.1 Started: 11/10/2010 Smokeless Tobacco: Never Comments:06/13/20 actively try ing to quit about 5-8 cigs/day Alcohol Use Standard Drinks/Week Comments Yes 0 (1 standard drink = 0.6 oz pur e alcohol) rarely C Utilities Answer Date Recorded In the past 12 months has [employer], gas, oil, or water company threatened to [...] any time in the past 12 m [facility], were you homeless or living in [...] [facility] Adult Primary Care - [address] [phone] Carrington Calderon MD [address] [phone] 02/27/2024 8:30 EDT Telemedicine [facility] Sleep Program - [address] [phone] Dwight Colbert [address] [place] [address] [phone] 02/29/2024 10:30 EDT Appointment [facility] Radiology Nuclear Medicine and PET [address] [phone] 02/29/2024 14:30 EDT Appointment [facility] Radiology Nuclear Medicine and PET [address] [phone] 03/01/2024 8:00 EDT Appointment [facility] Radiology Nuclear Medicine and PET [address] [phone] 03/01/2024 9:30 EDT Appointment [facility] Radiology Nuclear Medicine and PET [address] [phone] documented as of this encounter Visit Diagnoses Not on filedocumented in this encounter Additional Health Concerns Infection Onset Date Last Indicated Resolved Time R/O COVID-19 08/04/2020 08/04/2020 08/04/2020 11:4 0 EST documented as of this encounter
--- OUTSIDE RECORDS SUMMARY | 2024-01-02 06:23 | XMS_ITS | Encounter Summary ---
Author Organization [facility] Address [address] [place] [address] Care Team Providers Care Judicial Registrar Name Role Phone Trinity Samaniego MD Primary Care Provider [phone] Encounter Details Date Type Department Care Team (Late st Contact Info) Description 09/18/2009 Abstract [facility] Family Medicine - [address] [address] Trinity Samaniego MD [address] [place] [phone] Obesity, unspecified; Migraine NOS/not intrcbl Social [...] Description 02/21/2024 9:45 EDT Office Visit [facility] Adult Primary Care - [address] [phone] Carrington Calderon MD [address] [phone] 02/27/2024 8:30 EDT Telemedicine [facility] Sleep Program - [address] [phone] Dwight Colbert [address] [place] [address] 02/29/2024 10:30 EDT Appointment [facility] Radiology Nuclear Medicine and PET - [address] [address] 02/29/2024 14:30 EDT Appointment [facility] Radiology Nuclear Medicine and PET [address] [address] 03/01/2024 8:00 EDT Appointment [facility] Radiology Nuclear Medicine and PET [address] [phone] 03/01/2024 9:30 EDT Appointment [facility] Radiology Nuclear Medicine and PET [address] [address] documented as of this encounter Visit Diagnoses Diagnosis Obesity, unspecified Migraine, unspecified, without mention of intractable migraine without mention of status migrainosus documented in this encounter Care Teams Judicial Registrar Relationship Specialty Start Date End Date Trinity Samaniego MD [address] [place] [phone] PCP - General 09/16/09 10/05/09 documented as of this encounter
--- OUTSIDE RECORDS SUMMARY | 2024-01-02 06:23 | XMS_ITS | Encounter Summary ---
Author Organization [facility] Address [address] [place] [address] Care Team Providers Care Equipment Operator Intermodal Yard Name Role Phone Jasmin Jara Primary Care Provider Unavail able Encounter Details Date Type Department Care Team (Late st Contact Info) Description 05/05/2010 Results Only [facility] Laboratory Services - [facility] ([facility] [address] [place] [phone] Ann Booker MD [address] [place] [address] [phone] Social History Tobacco Use Types Packs/Day Years [...] [facility] Adult Primary Care - [address] [phone] Carrington Calderon MD [address] [phone] 02/27/2024 8:30 EDT Telemedicine [facility] Sleep Program - [address] [phone] Dwight Colbert [address] [place] [address] 02/29/2024 10:30 EDT Appointment [facility] Radiology Nuclear Medicine and [address] [address] 02/29/2024 14:30 EDT Appointment [facility] Radiology Nuclear [facility] and [address] [address] 03/01/2024 8:00 EDT Appointment [facility] Radiology Nuclear Medicine and PET [address] [address] 03/01/2024 9:30 EDT Appointment [facility] Radiology [facility] and [address] [address] documented as of this encounter Procedures Procedure [...] ? CRISTY TALBOT ? Accession #: ? [id number] ? : ? 1985 (Age: 25) ??F [...] reviewed and electronically signed by: ? Rigo Costello CT(ASCP) ? Report Date: ??05/11/2010 12:55 ? End of Report ? MICHAEL WILLOUGHBY 05/05/2010 05/07/2010 Ann Booker MD PATHOLOGY ORDERABLES [facility] [address] [place] [address] documented in this encounter Visit Diagnoses Not on filedocumented in this encounter Care Teams Equipment Operator Intermodal Yard Relationship Specialty Start Date End Date Jasmin Jara PA PCP - General 10/06/09 05/09/10 documented as of this encounter
--- OUTSIDE RECORDS SUMMARY | 2024-01-02 06:23 | XMS_ITS | Encounter Summary ---
Author Organization [facility] Address [address] [place] [address] Care Team Providers Care Grapple Yarder Operator Name Role Phone Unavailable Primary Care Provider Unavailabl e Encounter Details Date Type Department Care Team (Late st Contact Info) Description 09/27/2005 Before PRISM Converted Visit (Maple) [facility] - Maple conversion [address] [place] [address] Oscar Moreno MD MSc [address] [place] [phone] Social History Tobacco Use Types Packs/Day Years Used Date Smoking Tobacco: Never Assessed Sex and Gender Information Value Date Recorded Sex Assigned at Not on file Gender Identity Female 06/18/2019 8:54 EST Sexual Orientation Not on file documented as of this encounter Consult Notes * Oscar Moreno MD - 05/17/2009 1819 EST OF SURGICAL ONCOLOGY - BREAST [facility] HISTORY AND PHYSICAL/CONSULTATION - 09/27/2005 [...] or drug addictions. She is employed at [employer]. She is single and lives at home with her family. 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 She continues [...] historyof ovarian cancer. The patient is of [place] and [place] background. Review of systems: Constitutional: The patient [...] sonographic abnormality in the right breast. Diagnostics: [facility] Radiology report dated 09/21/05. Right breast [...] patient the [facility] and [facility] to help in herpursuit to arrange primary care. Signed by Oscar Moreno MD 10/06/2005 07:27 Nery Del Valle MD Oscar Moreno MD - Oscar Moreno MD P - KKB Job ID: [id number] Document ID: [id number] cc: Kamini Gore MD documented in this encounter Plan of Treatment Upcoming Encounters Date Type Department Care Team (Late st Contact Info) Description 02/21/2024 9:45 EDT Office Visit [facility] Adult Primary Care - [address] [phone] Carrington Calderon MD [address] [place] [phone] 02/27/2024 8:30 EDT Telemedicine [facility] Sleep Program - [address] [phone] Dwight Colbert [address] [place] [address] 02/29/2024 10:30 EDT Appointment [facility] Radiology Nuclear Medicine and PET - [address] [address] 02/29/2024 14:30 EDT Appointment [facility] Radiology Nuclear Medicine and PET [address] 110831 03/01/2024 8:00 EDT Appointment [facility] Radiology Nuclear Medicine and PET - [address] 715731 03/01/2024 9:30 EDT Appointment [facility] Radiology Nuclear Medicine and PET [address] 229481 documented as of this encounter Visit Diagnoses Not on filedocumented in this encounter
--- OUTSIDE RECORDS SUMMARY | 2024-01-02 06:23 | XMS_ITS | Encounter Summary ---
Author Organization [facility] Address [address] [place] [address] Care Team Providers Care Liner Machine Operator Name Role Phone Unavailable Primary Care Provider Unavailabl e Encounter Details Date Type Department Care Team (Late st Contact Info) Description 03/30/2006 Before PRISM Converted Visit (Maple) [facility] - Maple conversion [address] [place] [address] Angélica Hernandez CFNP Social History Tobacco Use Types Packs/Day Years Used Date Smoking Tobacco: Never Assessed Sex and Gender Information Value Date Recorded Sex Assigned at Not on file Gender Identity Female 06/18/2019 8:54 EST Sexual Orientation Not on file documented as of this encounter Progress Notes * Ra, Conv Roll Changer - 05/31/2009 0141 EST DIVISION OF SURGICAL ONCOLOGY - BREAST [facility] March 30, 2006 Broderick Ross M.D. [facility] Plastic and Reconstructive Surgery [address] [place] [address], [address] [place] [phone] Dear Doctor Vandana: Thank you in advance [...] - JUNE Plata Bhupendra addison Job ID: [id number] Document ID: [id number] cc: Broderick Ross MD JUNE Calzada Bhupendra addison Job ID: [id number] Document ID: [id number] cc: Broderick Ross MD * Dayron Knapp Roll Changer - 05/31/2009 0140 EST OF SURGICAL ONCOLOGY - BREAST [facility] PROGRESS/FOLLOWUP NOTE - 03/30/2006 P: [...] from the paternal side. Ethnic background is [place] and [place]. 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 She is [...] - JUNE Plata Bhupendra addison Job ID: [id number] Document ID: [id number] cc: Kamini Gore MD JUNE Calzada Bhupendra addison Job ID: [id number] Document ID: [id number] cc: Kamini Gore MD documented in this encounter Plan of Treatment Upcoming Encounters Date Type Department Care Team (Late st Contact Info) Description 02/21/2024 9:45 EDT Office Visit [facility] Adult Primary Care - [address] [phone] Carrington Calderon MD [address] [place] [address] [address] [place] [phone] 02/27/2024 8:30 EDT Telemedicine [facility] Sleep Program - [address] [place], [place] 275[address] Dwight Colbert [address] [place] [address] 02/29/2024 10:30 EDT Appointment [facility] Radiology Nuclear Medicine and PET - [address] 104021 02/29/2024 14:30 EDT Appointment [facility] Radiology Nuclear Medicine and PET - [address] [phone] 03/01/2024 8:00 EDT Appointment [facility] Radiology Nuclear Medicine and PET - [address] [phone] 03/01/2024 9:30 EDT Appointment [facility] Radiology Nuclear Medicine and PET - [address] [phone] documented as of this encounter Visit Diagnoses Not on filedocumented in this encounter
--- OUTSIDE RECORDS SUMMARY | 2024-01-02 06:23 | XMS_ITS | Encounter Summary ---
Author Organization [facility] Address [address] [place] [address] Care Team Providers Care Digital Sales Executive Name Role Phone Jasmin Jara Primary Care Provider Unavail able Encounter Details Date Type Department Care Team (Late st Contact Info) Description 02/16/2010 Abstract Used for ABSTRACTING Data [phone] Jasmin Jara PA Social History Tobacco Use [...] [facility] Adult Primary Care - [address] 288951 Carrington Calderon MD [address] [phone] 02/27/2024 8:30 EDT Telemedicine [facility] Sleep Program - [address] [phone] Dwight Colbert [address] [place] [address] [phone] 02/29/2024 10:30 EDT Appointment [facility] Radiology Nuclear Medicine and PET - [facility] [address] [place], [place] 668[address] [phone] 02/29/2024 14:30 EDT Appointment [facility] Radiology Nuclear Medicine and PET [address] [address] 03/01/2024 8:00 EDT Appointment [facility] Radiology Nuclear Medicine and PET [address] [address] 03/01/2024 9:30 EDT Appointment [facility] Radiology Nuclear Medicine and PET [address] [address] documented as of this encounter Visit Diagnoses [...] 05/10/2010 added in this encounter Care Teams Digital Sales Executive Relationship Specialty Start Date End Date Jasmin Jara PA PCP - General 10/06/09 05/09/10 documented as of this encounter
--- OUTSIDE RECORDS SUMMARY | 2024-01-02 06:23 | XMS_ITS | Encounter Summary ---
Author Organization [facility] Address [address] [place] [address] Care Team Providers Care Emergency Preparedness Coordinator Name Role Phone Unavailable Primary Care Provider Unavailabl e Encounter Details Date Type Department Care Team (Latest Contact Info) Description 08/23/2007 10:09 EDT - 08/23/2007 11:59 EDT Hospital Encounter [facility] Emergency Department - Main [place] [address] [place], [place] [phone] Emergency, MD Ekaterina Discharge Disposition: Home or [...] [facility] Adult Primary Care - [address] [phone] Carrington Calderon MD [address] [phone] 02/27/2024 8:30 EDT Telemedicine [facility] Sleep Program - [address] 239091 Dwight Colbert [address] [place], [place] [address]47[address] 02/29/2024 10:30 EDT Appointment [facility] Radiology Nuclear Medicine and PET - [address] 878361 02/29/2024 14:30 EDT Appointment [facility] Radiology Nuclear Medicine and PET - [address] [phone] 03/01/2024 8:00 EDT Appointment [facility] Radiology Nuclear Medicine and PET - [address] [phone] 03/01/2024 9:30 EDT Appointment [facility] Radiology Nuclear Medicine and PET [address] [phone] documented as of this encounter Procedures Procedure [...] right, and left frontal sinus inflammatory disease. Subhadeep Jeff MARTÍNEZ IMG MRI ORDERABLES * (ABNORMAL) GLUCOSE, SERUM (08/23/2007 14:50 EDT) Glucose, Serum 124(H) 70 - 100 mg/dl [facility] 08/23/2007 14:5 0 EDT 08/23/2007 15:01 EDT Default Emergency CHEMISTRY & BLOOD G ORDERABLES [facility] [address] [place] [address] * PHOSPHORUS (08/23/2007 14:50 EDT) Phosphorus 3.1 2.5 - 4.5 mg/dl [facility] 08/23/2007 14:5 0 EDT 08/23/2007 15:01 EDT Default Emergency MD CHEMISTRY & BLOOD G ORDERABLES Performing Organization Address City/[facility] de Phone Number [facility] [address] [place] [address] * MAGNESIUM (08/23/2007 14:50 EDT) Pathologist [facility] Magnesium 1.9 1.7 - 2.8 mg/dl [facility] 08/23/2007 14:5 0 EDT 08/23/2007 15:01 EDT Default Emergency MD CHEMISTRY & BLOOD G ORDERABLES Performing Organization Address [facility] de Phone Number [facility] [address] [place] [address] * ELECTROLYTES (08/23/2007 14:50 EDT) Pathologist [facility] Sodium 142 136 - 145 mEq/L [facility] Potassium 4.2 3.5 - 5.0 mEq/L [facility] Chloride 105 96 - 110 mEq/L [facility] CO2 25 24 - 32 mEq/L [facility] 08/23/2007 14:5 0 EDT 08/23/2007 15:01 EDT Default Emergency MD CHEMISTRY & BLOOD G ORDERABLES Performing Organization Address [facility] de Phone Number [facility] [address] [place] [address] * HOLD BLUE TOP (08/23/2007 14:50 EDT) Hold Blue Top Sample for coagulation will be discarded after 4 hours [facility] 08/23/2007 14:5 0 EDT 08/23/2007 15:01 EDT Default Emergency MD LAB INFO SERVICE AN D SUPPORT & PHONE RESULT Performing Organization Address [facility] Co de Phone Number [facility] [address] [place] [address] * FOLATE (08/23/2007 14:50 EDT) Pathologist [facility] Folate >24.0 ng/mL [facility] Comment: Deficient: ??Less than 3.4 ng/mL Indeterminate: ??3.4-5.4 ng/mL Normal: ??Greater than 5.4 ng/mL 08/23/2007 14:5 0 EDT 08/23/2007 15:01 EDT Default Emergency MD CHEMISTRY & BLOOD G ORDERABLES Performing Organization Address City/[facility] Co de Phone Number [facility] [address] [place] [address] * (ABNORMAL) CREATININE (08/23/2007 14:50 EDT) [facility] Creatinine 0.66(L) 0.7 - 1.5 mg/dl [facility] GFR, Calculated >60 ml/min/1.7 3m2 [facility] 08/23/2007 14:5 0 EDT 08/23/2007 15:01 EDT Default Emergency MD CHEMISTRY & BLOOD G ORDERABLES Performing Organization Address [facility] de Phone Number [facility] [address] [place] [address] * CK (08/23/2007 14:50 EDT) Pathologist [facility] CK 68 30 - 135 U/L [facility] 08/23/2007 14:5 0 EDT 08/23/2007 15:01 EDT Default Emergency MD CHEMISTRY & BLOOD G ORDERABLES Performing Organization Address [facility] Co de Phone Number [facility] [address] [place] [address] * (ABNORMAL) HEMAGRAM AND DIFFERENTIAL (08/23/2007 14:50 EDT) Pathologist [facility] WBC 11.97 4.0 - 12.4 K/cmm [facility] RBC 4.54 3.86 - 5.04 M/cmm [facility] Hemoglobin 13.4 11.6 - 15.2 gm/dl [facility] HCT 38.9 34.9 - 44.4 % [facility] [...] Type of Diff: Automated [facility] 08/23/2007 14:5 0 EDT 08/23/2007 15:01 EDT Default Emergency PACKAGES & DNA PROB E ORDERABLES [facility] [address] [place] [address] * CALCIUM (08/23/2007 14:50 EDT) Calcium 10.0 8.5 - 10.5 mg/dl [facility] Calculated Calcium 10.0 8.5 - 10.5 mg/dl [facility] 08/23/2007 14:5 0 EDT 08/23/2007 15:01 EDT Default Emergency CHEMISTRY & BLOOD G ORDERABLES Performing Organization Address [facility] de Phone Number [facility] [address] [place] [address] * BUN (08/23/2007 14:50 EDT) BUN 12 10 - 26 mg/dl [facility] 08/23/2007 14:5 0 EDT 08/23/2007 15:01 EDT Default Emergency CHEMISTRY & BLOOD G ORDERABLES Performing Organization Address [facility] de Phone Number [facility] [address] [place] [address] documented in this encounter Visit Diagnoses Not on filedocumented in this encounter
--- OUTSIDE RECORDS SUMMARY | 2024-01-02 06:23 | XMS_ITS | Encounter Summary ---
Author Organization [facility] Address [address] [place] [address] Care Team Providers Care Certifed Refrigeration Operator Name Role Phone Unavailable Primary Care Provider Unavailabl e Encounter Details Date Type Department Care Team (Latest Contact Info) Description 10/11/2006 10:03 EDT - 10/11/2006 11:59 EDT Hospital Encounter [facility]- [address] [address] Fermin Lovett MD Discharge Disposition: Auto Discharge [...] [facility] Adult Primary Care - [address] 727281 Carrington Calderon MD [address] [phone] 02/27/2024 8:30 EDT Telemedicine [facility] Sleep Program - [address] [address] Dwight Colbert [address] [place], [place] [phone] 02/29/2024 10:30 EDT Appointment [facility] Radiology Nuclear Medicine and PET [address] [phone] 02/29/2024 14:30 EDT Appointment [facility] Radiology Nuclear Medicine and PET [address] [phone] 03/01/2024 8:00 EDT Appointment [facility] Radiology Nuclear Medicine and PET [address] [phone] 03/01/2024 9:30 EDT Appointment [facility] Radiology Nuclear Medicine and PET [address] [phone] documented as of this encounter Procedures Procedure [...]
--- OUTSIDE RECORDS SUMMARY | 2024-01-02 06:23 | XMS_ITS | Encounter Summary ---
Author Organization [facility] Address [address] [place] [address] Care Team Providers Care Vehicle Body Builder Name Role Phone Unavailable Primary Care Provider Unavailabl e Encounter Details Date Type Department Care Team (Late st Contact Info) Description 03/30/2006 7:53 EDT Hospital Encounter [facility] [address] [place] [address] Unknown, Provider, Social History Tobacco Use Types Packs/Day Years Used Date Smoking Tobacco: Every Day Cigarettes 0.5 13.1 Started: 11/10/2010 Smokeless Tobacco: Never Comments:06/13/20 actively try ing to quit about 5-8 cigs/day Alcohol Use Standard Drinks/Week Comments Yes 0 (1 standard drink = 0.6 oz pur e alcohol) rarely [facility] Utilities Answer Date Recorded In the past 12 months has [employer], [employer], oil, or water [employer] threatened to shut off services in your [...] in a snf (including now)? No 06/14/2023 Housing Stability Vital Sign Answer Norm e Recorded In the last 12 months, was t here a time when you were not able to pay the mortgage or rent on time? No 11/15/2023 In the past 12 months, how m any times have you moved where you were living? 1 11/15/2023 At any time in the past 12 m [facility], were you homeless or living in a snf (including now)? No 11/15/2023 Interpersonal Safety Answer [...] [facility] Adult Primary Care - [address] [phone] Carrington Calderon MD [address] [phone] 02/27/2024 8:30 EDT Telemedicine [facility] Sleep Program - [address] [phone] Dwight Colbert [address] [place] [address] [phone] 02/29/2024 10:30 EDT Appointment [facility] Radiology Nuclear Medicine and PET [address] [phone] 02/29/2024 14:30 EDT Appointment [facility] Radiology Nuclear Medicine and PET [address] [phone] 03/01/2024 8:00 EDT Appointment [facility] Radiology Nuclear Medicine and PET [address] [phone] 03/01/2024 9:30 EDT Appointment [facility] Radiology Nuclear Medicine and PET [address] [phone] documented as of this encounter Visit Diagnoses Not on filedocumented in this encounter Additional Health Concerns Infection Onset Date Last Indicated Resolved Time R/O COVID-19 08/04/2020 08/04/2020 08/04/2020 11:4 0 EST documented as of this encounter
--- OUTSIDE RECORDS SUMMARY | 2024-01-02 06:23 | XMS_ITS | Encounter Summary ---
Author Organization [facility] Address [address] [place] [address] Care Team Providers Care Manager Of Human Resources Name Role Phone Unavailable Primary Care Provider Unavailabl e Encounter Details Date Type Department Care Team (Latest Contact Info) Description 01/10/2006 10:03 EDT - 01/10/2006 11:59 EDT Hospital Encounter [facility] - Maple conversion [address] [place], [place] [address] Myles Jackson Discharge Disposition: Auto Discharge Social [...] [facility] Adult Primary Care - [address] [phone] Carrington Calderon MD [address] [phone] 02/27/2024 8:30 EDT Telemedicine [facility] Sleep Program - [address] [address] Dwight Colbert [address] [place], [place] [address] 02/29/2024 10:30 EDT Appointment [facility] Radiology Nuclear Medicine and PET - [address] [address] 02/29/2024 14:30 EDT Appointment [facility] Radiology Nuclear Medicine and PET [address] [address] 03/01/2024 8:00 EDT Appointment [facility] Radiology Nuclear Medicine and PET [address] [address] 03/01/2024 9:30 EDT Appointment [facility] Radiology Nuclear Medicine and PET [address] [phone] documented as of this encounter Procedures Procedure [...] 01/11/06remedios Myles BUTLER DIAGNOSTIC IMAGI NG ORDERABLES * [...]
--- OUTSIDE RECORDS SUMMARY | 2024-01-02 06:23 | XMS_ITS | Encounter Summary ---
Author Organization [facility] Address [address] [place] [address] Care Team Providers Care Plating Machine Operator Name Role Phone None, Provider Primary Care Provider Unavailabl e Encounter Details Date Type Department Care Team (Late st Contact Info) Description 02/11/2015 13:08 EDT - 02/11/2015 13:09 EDT Hospital Encounter [facility] - [address] [address] Alaina Miranda, [address] [phone] Sunday Miranda MD [address] [place] [phone] Discharge Disposition: Home or Self Care Social [...] [facility] - [address] [address] Carrington Calderon MD [address] [phone] 02/27/2024 8:30 EDT Telemedicine [facility] Sleep Program - [address] [address] Dwight Colbert [address] [place] [address] [phone] 02/29/2024 10:30 EDT Appointment [facility] Radiology Nuclear Medicine and PET [address] [phone] 02/29/2024 14:30 EDT Appointment [facility] Radiology Nuclear Medicine and PET [address] [phone] 03/01/2024 8:00 EDT Appointment [facility] Radiology Nuclear Medicine and PET [address] [phone] 03/01/2024 9:30 EDT Appointment [facility] Radiology Nuclear Medicine and PET [address] [phone] documented as of this encounter Visit Diagnoses Not on filedocumented in this encounter Care Teams Plating Machine Operator Relationship Specialty Start Date End Date None, Provider PCP - General 01/01/15 08/27/15 documented as of this encounter
--- OUTSIDE RECORDS SUMMARY | 2024-01-02 06:23 | XMS_ITS | Encounter Summary ---
Author Organization [facility] Address [address] [place] [address] Care Team Providers Care Care Director Rn Name Role Phone Unavailable Primary Care Provider Unavailabl e Encounter Details Date Type Department Care Team (Late st Contact Info) Description 08/23/2007 Office [address] [facility] - [facility] conversion [address] [place] [address] Naomi Graham PA Social History Tobacco Use [...] is beginningto feel better. care transferred to gogre diana, awaiting neuro dispo.. Discussed case with [...] Your Current Medications: Continue current medications. Follow-up: [facility], , [address] [place] [address], [phone]. Follow up as needed. PAYAL RODRIGUEZ, , [facility], [address] [place] [address], [phone]. Follow up. Call for the next available appointment. call dr shahid [phone] and follow up in 2-3 weeks. Understanding [...] call you tomorrow to make an appointment ([phone]) . (Electronically signed by Aubrey Diana, 08/24/2007 [...] --1023 Antonella Reynaga R.N.. NURSING PROGRESS NOTES (Membership Administrator at bedside speaking w/ pt. Warm blanket [...] arm. Waiting for MRI results.). --1829 Rosa Handley R.N. (Neuro made aware that pt is waiting for MRI results- Neuro to review MRI then see pt.). --1932 Rosa Handley R.N. BP: 113 / 65. HR: 120. RR: 20. (Cossayuna to bedside. Pt waiting for d/c.). --2016 [...] Patient verbalized understanding. Written instructions provided in Sinhala. The patient was accompanied by printer assistant. The patient left the Emergency Department ambulatory. --2102 Rosa Handley R.N.. Rob Devine R.N. Student Nurse Locked/Released at 08/24/2007 15:04 by Silvia Shepard R.N. documented in this encounter Plan of Treatment Upcoming Encounters Date Type Department Care Team (Late st Contact Info) Description 02/21/2024 9:45 EDT Office Visit [facility] Adult Primary Care - [address] [phone] Carrington Calderon MD 1 [facility] 1 [place] [phone] 02/27/2024 8:30 EDT Telemedicine [facility] Sleep Program - [address] [phone] Dwight Colbert [address] [place] [phone] 02/29/2024 10:30 EDT Appointment [facility] Radiology Nuclear Medicine and PET - [address] [id number] 02/29/2024 14:30 EDT Appointment [facility] Radiology Nuclear Medicine and PET - [address] [id number] 03/01/2024 8:00 EDT Appointment [facility] Radiology Nuclear Medicine and PET - [address] [phone] 03/01/2024 9:30 EDT Appointment [facility] Radiology Nuclear Medicine and PET - [address] [phone] documented as of this encounter Visit Diagnoses Not on filedocumented in this encounter
--- OUTSIDE RECORDS SUMMARY | 2024-01-02 06:23 | XMS_ITS | Encounter Summary ---
Author Organization [facility] Address [address] [place] [address] Care Team Providers Care Boilermaker Helper Name Role Phone Unavailable Primary Care Provider Unavailabl e Encounter Details Date Type Department Care Team (Late st Contact Info) Description 07/28/2006 15:28 EST Hospital Encounter [facility] - Maple conversion [address] [place] [address] Elise Vanegas MD [address] [place] [address] Social History Tobacco Use Types Packs/Day Years Used Date Smoking Tobacco: Every Day Cigarettes 0.5 13.1 Started: 11/10/2010 Smokeless Tobacco: Never Comments:06/13/20 actively try ing to quit about 5-8 cigs/day Alcohol Use Standard Drinks/Week Comments Yes 0 (1 standard drink = 0.6 oz pur e alcohol) rarely [facility] Utilities Answer Date Recorded In the past 12 months has [employer], gas, oil, or water [employer] threatened to shut off services in [...] in a mcc (including now)? No 06/14/2023 Housing Stability Vital Sign Answer Norm e Recorded In the last 12 months, was t here a time when you were not able to pay the mortgage or rent on time? No 11/15/2023 In the past 12 months, how m any times have you moved where you were living? 1 11/15/2023 At any time in the past 12 m [facility], were you homeless or living in a mcc (including now)? No 11/15/2023 Interpersonal Safety Answer [...] [facility] - [address] 327491 Carrington Calderon MD [address] [phone] 02/27/2024 8:30 EDT Telemedicine [facility] Sleep Program - [address] [phone] Dwight Colbert [address] [place] [phone] 02/29/2024 10:30 EDT Appointment [facility] Radiology Nuclear Medicine and [address] [id number] 02/29/2024 14:30 EDT Appointment [facility] Radiology Nuclear Medicine and [address] [phone] 03/01/2024 8:00 EDT Appointment [facility] Radiology Nuclear Medicine and PET [address] [phone] 03/01/2024 9:30 EDT Appointment [facility] Radiology Nuclear Medicine and [address] [phone] documented as of this encounter Visit Diagnoses Not on filedocumented in this encounter Additional Health Concerns Infection Onset Date Last Indicated Resolved Time R/O COVID-19 08/04/2020 08/04/2020 08/04/2020 11:4 0 EST documented as of this encounter
--- OUTSIDE RECORDS SUMMARY | 2024-01-02 06:23 | XMS_ITS | Encounter Summary ---
Author Organization [facility] Address [address] [place] [address] Care Team Providers Care Nurse Intern Name Role Phone Unavailable Primary Care Provider Unavailabl e Encounter Details Date Type Department Care Team (Late st Contact Info) Description 09/21/2005 7:24 EDT - 09/21/2005 11:59 EDT Hospital Encounter [address] [address] Nathaniel Argueta MD 111 [facility] 2 [place] [phone] Discharge Disposition: Auto Discharge Social History Tobacco [...] [facility] Adult Primary Care - [address] [phone] Carrington Calderon MD [address] [place] [phone] 02/27/2024 8:30 EDT Telemedicine [facility] Sleep Program - [address] [address] Dwight Colbert [address] [place] [address] 02/29/2024 10:30 EDT Appointment [facility] Radiology Nuclear Medicine and PET - [address] [phone] 02/29/2024 14:30 EDT Appointment [facility] Radiology Nuclear Medicine and PET - [address] [address] 03/01/2024 8:00 EDT Appointment [facility] Radiology Nuclear Medicine and PET [address] [phone] 03/01/2024 9:30 EDT Appointment [facility] Radiology Nuclear Medicine and PET [address] [phone] documented as of this encounter Procedures Procedure [...] were discussed with the patient by the bowling ball finisher at the time of the exam. OVERALL [...] were discussed with the patient by the bowling ball finisher at the time of the exam. OVERALL ASSESSMENT - NEGATIVE END OF IMPRESSION Nathaniel Argueta MD IMG US ORDERABLES documented in this encounter Visit Diagnoses Not on filedocumented in this encounter
--- OUTSIDE RECORDS SUMMARY | 2024-01-02 06:23 | XMS_ITS | Encounter Summary ---
Author Organization [facility] Address [address] [place] [address] Care Team Providers Care Pyrometallurgical Engineer Name Role Phone None, Provider Primary [...] 15:27 EDT - 02/24/2015 20:58 EDT Emergency [facility] Emergency Department - [address] [address] Sonal Rand, MARY [address] JAKE [address] [place] [phone] Broderick Singh MD [address] [place] [address], Level [address] [place] [address] Chilo Carrillo MD Emergency, MD [...] 20:40 EDT Rest Lots liquids See the manager php doctor in 2 days as planned Return [...] test on 01/19 and positive UPT at [facility] the next week. She initiated care at [facility] 2 weeks ago and was told that the fetus had no heartbeat but was measuring 7 weeks. She wanted a second opinion so she went to [facility] on 02/14 where she was told that [...] Grandmother ??? Diabetes Paternal Grandfather OB History CAN MAKER History OB History Para Term AB SAB [...] examined with Dr. Michael Emanuel MD PGY-1 [facility] Obstetrics and Gynecology Pager: [phone] Brii [place] MD 02/24/2015 20:22 Attending addendum: [...] This RN present for pt's D+C by CAN MAKER. Pt monitored for 1 hr s/p procedure. [...] ER. Pt to f/u with PCP and CAN MAKER. * Carline LunaMARCELO - 02/24/2015 1921 EDT Assumed care of pt. Pt tearful, family at bedside. VSS. Pt with no c/o pain or nausea at this time.Apical reg, LCTA, RR even/reg. BS present. Cap refill <2 secs. Call calloway within reach. No statedneeds at this time. * Doris Balderas RN - 02/24/2015 1844 EDT Farm[employer] Poultry surgery services at bedside now discussing findings and plan of care. * Doris Balderas RN - 02/24/2015 1757 EDT Taken for US. * Doris Balderas RN - 02/24/2015 1732 EDT Pad change x 2 this hour for large amount vaginal bleeding with large clots. [employer] P[employer] services in to evaluate-at bedside now. * [...] pending. ivf's infusing now. S/o at bedside. Farmworker Poultry at bedside now. * Broderick Singh MD [...] ago. 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 For a second evaluation at that time, the patient visited [facility], and was informed that her baby's heart beat was slow. The patient reports that spotting began again 1 week ago (Tuesday) at which time she returned to [facility] and was informed that her baby did [...] Specimen will be held for 5 days. ED/[facility] ADD-ON Tests to be added TYPE AND SCREEN Final Number for problems [id number] (ED) Final BLOOD BANK SPECIMEN HOLD Hold BB Spec will exp at 23:59, 3 days from collect date Final TYPE AND SCREEN ABO B Final Rh Factor Negative Final Antibody Screen Positive Final Specimen Expires: 02/27/2015 @ 23:59 Final DIRECT ANTIGLOBULIN TEST LIZZIE Negative Final PREPARE RED BLOOD CELLS Product Code E0336 -1 RED BLOOD CELLS, Leukocytes Reduced Final Donor Number [id number] Final Unit ABO B Final Unit Rh [...] ordered. Seen in the ED by the CAN MAKER service. Care is signed out to Dr. Carrillo at 17:10 with CAN MAKER evaluation inprogress. ASSESSMENT AND PLAN Final diagnoses: [...] found. * Jose Thompson RN - 02/24/2015 7515 EDT Chief Complaint Patient presents with ??? [...] [facility] Adult Primary Care - [address] 559201 Carrington Calderon MD 1 [facility] 1 [place] [phone] 02/27/2024 8:30 EDT Telemedicine [facility] Sleep Program - [address] [address] Dwight Colbert [address] [place] [address] [phone] (work) 02/29/2024 10:30 EDT Appointment [facility] Radiology Nuclear Medicine and PET [address] [phone] 02/29/2024 14:30 EDT Appointment [facility] Radiology Nuclear Medicine and PET [address] [id number] 03/01/2024 8:00 EDT Appointment [facility] Radiology Nuclear Medicine and PET - [address] [phone] 03/01/2024 9:30 EDT Appointment [facility] Radiology Nuclear Medicine and PET [address] [phone] Pending Results Name Type Priority Associated Diagnoses [...] E0336 -1 RED BLOOD CELLS, Leukocytes Reduced [facility] BLOOD BANK Donor Number [id number] [facility] BLOOD BANK Unit ABO B [facility] BLOOD B[facility] Unit Rh NEG [facility] BLOOD BANK Cross Match Interp Compatible [facility] BLOOD BANK Unit Status Released From Crossmatch [facility] BLOOD BANK 02/24/2015 18:4 7 EDT Chilo Carrillo MD BLOOD BANK ORDERABL ES Performing Organization Address City/[facility]/ZIP Co de Phone Number [facility] BLOOD BANK * DIRECT ANTIGLOBULIN TEST (02/24/2015 18:47 EDT) LIZZIE Negative [facility] BLOOD BANK 02/24/2015 18:4 7 EDT Chilo Carrillo MD BLOOD BANK TESTS [facility] BLOOD BANK * ANTIBODY IDENTIFICATION (02/24/2015 18:45 EDT) Antibody Identification Anti-D; patient recd RhIg [facility] BLOOD BANK 02/24/2015 18:4 5 EDT Chilo Carrillo MD BLOOD BANK TESTS Performing Organization Address City/[facility]/ZIP Co de Phone Number [facility] BLOOD BANK * RAD US PELVIS, TRANSVAGINAL, AND LIMITED DOPPLER (02/24/2015 18:21 EDT) Anatomical Region Laterality Modality Other 02/24/2015 18:2 1 EDT 02/25/2015 8:55 EDT Narrative 02/25/2015 8:55 EDT RAD US PELVIS, TRANSVAGINAL, AND LIMITED DOPPLER ??02/24/2015 6:21 PM Signs and Symptoms/Comments: ??reported IUP per manager php which was then found in past wk to be non viable, est at 9 wks and now with increased bleeding and abd pain ??US requested by manager php Comparison: Pelvic ultrasound October 2006 Technique: Grayscale [...] PM Signs and Symptoms/Comments: reported IUP per manager php which was then found in past wk to be non viable, est at 9 wks and now with increased bleeding and abd pain US requested by manager php Comparison: Pelvic ultrasound October 2006 Technique: Grayscale [...] AND SCREEN (02/24/2015 17:30 EDT) ABO B [facility] BLOOD BANK Rh Factor Negative [facility] BLOOD BANK Antibody Screen Positive [facility] BLOOD BANK Specimen Expires: 02/27/2015 @ 23:59 [facility] BLOOD BANK Blood specimen (specimen) 02/24/2015 17:30 EDT Chilo Carrillo MD BLOOD BANK TESTS [facility] BLOOD BANK * ED/[facility] ADD-ON (02/24/2015 17:30 EDT) Tests to be added TYPE AND SCREEN 02/24/2015 17:28 EDT [facility] SERVICES Number for problems [id number] (ED) 02/24/2015 17:28 EDT [facility] TOPOGRAPHY UNKNOWN / Unknown 02/24/2015 17:30 EDT 02/24/2015 18:01 EDT Chilo Carrillo MD HEMATOLOGY & PF4 OR DERABLES Performing Organization Address City/[facility]/ZIP Co de Phone Number [facility] [address] [place] [address] * HOLD GREEN TOP (02/24/2015 16:00 EDT) Hold Green Top Hold for further testing. Specimen will be held for 5 days. 02/24/2015 16:18 EDT [facility] Blood specimen (specimen) BLOOD SPECIMEN / Unknown 02/24/2015 16:00 EDT 02/24/2015 16:07 EDT Sonal A Giorgi PA-C LAB INFO SERVICE AN D SUPPORT & PHONE RESULT Performing Organization Address [facility] Co de Phone Number [facility] [address] [place] [address] * BLOOD BANK SPECIMEN HOLD (02/24/2015 16:00 EDT) Hold BB Spec will exp at 23:59, 3 days from collect date [facility] BLOOD BANK Blood specimen (specimen) 02/24/2015 16:00 EDT Sonal A Giorgi PA-C BLOOD BANK TESTS Performing Organization Address [facility]/ZIP Co de Phone Number [facility] BLOOD BANK * HOLD SST (02/24/2015 16:00 EDT) Hold SST Hold for further testing. Specimen will be held for 5 days. 02/24/2015 16:18 EDT [facility] Blood specimen (specimen) BLOOD SPECIMEN / Unknown 02/24/2015 16:00 EDT 02/24/2015 16:07 EDT Sonal A Giorgi PA-C LAB INFO SERVICE AN D SUPPORT & PHONE RESULT Performing Organization Address City/[facility]/ZIP Co de Phone Number [facility] [address] [place] [address] * HOLD BLUE TOP (02/24/2015 16:00 EDT) Hold Blue Top Sample for coagulation will be discarded after 4 hours 02/24/2015 16:20 [facility] Blood specimen (specimen) BLOOD SPECIMEN / Unknown 02/24/2015 16:00 EDT 02/24/2015 16:07 EDT Sonal Rand PA-C LAB INFO SERVICE AN D SUPPORT & PHONE RESULT [facility] [address] [place] [address] * (ABNORMAL) HEMAGRAM AND DIFFERENTIAL (02/24/2015 16:00 EDT) WBC 17.81(H) 4.0 - 12.4 K/cmm 02/24/2015 16:11 [facility] RBC 4.36 3.86 - 5.04 M/cmm 02/24/2015 16:11 [facility] Hemoglobin 13.6 11.6 - 15.2 gm/dl 02/24/2015 16:11 [facility] HCT 39.5 34.9 - 44.4 % 02/24/2015 16:11 [facility] MCV 91 81 - 98 fl 02/24/2015 16:11 [facility] MCH 31.1 26.7 - 33.3 pg 02/24/2015 16:11 [facility] MCHC 34.3 32.1 - 35.9 gm/dl 02/24/2015 16:11 [facility] RDW-CV 12.6 11.7 - 14.6 % 02/24/2015 16:11 [facility] RDW-SD 39.8 37.6 - 50.3 fl 02/24/2015 16:11 [facility] PLT 383(H) 141 - 320 K/cmm 02/24/2015 16:11 [facility] MPV 8.0 7.5 - 11.2 fl 02/24/2015 16:11 EDT [facility] Neutrophils 68.0 45.5 - 79.7 % 02/24/2015 16:54 T [facility] Lymphocytes 21.0 15.0 - 46.8 % 02/24/2015 16:54 [facility] % Atyp Lymphs 2.0 % 02/24/2015 16:54 [facility] Monocytes 6.0 1.8 - 12.0 % 02/24/2015 16:54 T [facility] Eosinophils 2.0 0.6 - 6.9 % 02/24/2015 16:54 [facility] Basophils 1.0 0.2 - 1.4 % 02/24/2015 16:54 [facility] ABS Neutrophils 12.10(H) 2.20 - 8.85 K/cmm 02/24/2015 16:54 [facility] ABS Lymphs 3.74(H) 1.09 - 3.30 K/cmm 02/24/2015 16:54 [facility] ABS Atyp Lymphs 0.36 K/cmm 5 16:54 [facility] ABS Monocytes 1.07(H) 0.1 - 0.8 K/cmm 02/24/2015 16:54 [facility] ABS Eosinophils 0.36 0.03 - 0.61 K/cmm 02/24/2015 16:54 [facility] ABS Basophils 0.18(H) 0.01 - 0.11 K/cmm 02/24/2015 16:54 [facility] Vacuolization Present 02/24/2015 16:54 [facility] Type of Diff: Manual 02/24/2015 16:54 [facility] Blood specimen (specimen) BLOOD SPECIMEN / Unknown 02/24/2015 16:00 EDT 02/24/2015 16:07 EDT Sonal Rand PA-C PACKAGES & DNA PROB E ORDERABLES [facility] [address] [place] [phone] * SURGICAL PATHOLOGY (02/24/2015 9:01 EDT) Pathology Report: SURGICAL PATHOLOGY REPORT Reports generated via electronic interface contain original data; however they are lacking the format of the original report. Caution should be taken when reading/interpret ing unformatted reports. Name: ? CRISTY MONTELONGO ? Accession #: ? [id number] ? : ? 1985 (Age: 29) ??F [...] Cruz 02/25/2015 11:33 AM End of Report [facility] 02/24/2015 9:01 EDT 02/24/2015 9:01 EDT Sonal Rand PA-C PATHOLOGY ORDERABLE S [facility] [address] [place] [address] documented in this encounter Visit Diagnoses Diagnosis [...] CONTINUOUS, Starting on Tue02/24/15 at 1600, Until 9/21/15 at 2258, STAT 1604 (New Bag - Prov ider: Doris Balderas, MARCELO)1841 (New Bag - Provider: Doris Balderas RN) [...] 02/24/2015 documented in this encounter Care Teams Pyrometallurgical Engineer Relationship Specialty Start Date End Date None, Provider PCP - General 01/01/15 08/27/15 documented as of this encounter
--- OUTSIDE RECORDS SUMMARY | 2024-01-02 06:23 | XMS_ITS | Encounter Summary ---
Author Organization [facility] Address [address] [place] [address] Care Team Providers Care Abnormal Psychology Teacher Name Role Phone None, Provider Primary Care Provider Unavailabl e Encounter Details Date Type Department Care Team (Late st Contact Info) Description 07/23/2015 10:49 EST - 07/23/2015 10:50 EST Hospital Encounter [address] [address] Robyn Bautista MD [address] [place] [phone] Discharge Disposition: Home or Self Care Social [...] [facility] Adult Primary Care - [address] [address] Carrington Calderon MD 1 [facility] 1 [place] [phone] 02/27/2024 8:[address] [facility] Sleep Program - [address] [phone] Dwight Colbert [address] [place] [phone] 02/29/2024 10:30 EDT Appointment [facility] Radiology Nuclear Medicine and PET - [address] [phone] 02/29/2024 14:30 EDT Appointment [facility] Radiology Nuclear Medicine and PET [address] [phone] 03/01/2024 8:00 EDT Appointment [facility] Radiology Nuclear Medicine and PET [address] [phone] 03/01/2024 9:30 EDT Appointment [facility] Radiology Nuclear Medicine and PET [address] [phone] documented as of this encounter Visit Diagnoses Not on filedocumented in this encounter Care Teams Abnormal Psychology Teacher Relationship Specialty Start Date End Date None, Provider PCP - General 01/01/15 08/27/15 documented as of this encounter
--- OUTSIDE RECORDS SUMMARY | 2024-01-02 06:23 | XMS_ITS | Encounter Summary ---
Author Organization [facility] Address [address] [place] [address] Care Team Providers Care Election Watcher Name Role Phone Jasmin Jara Primary Care Provider Unavail Trinity Wilson MD Primary Care Provider Encounter Details Date Type Department Care Team (Late st Contact Info) Description 08/19/2004 Results Only [facility] Family Medicine - [address] [address] Rosalio Bueno MD [address] [place] [address] [phone] Social History Tobacco Use Types Packs/Day Years [...] [facility] Adult Primary Care - [address] [phone] Carrington Calderon MD [address] [place] [address] [phone] 02/27/2024 8:30 EDT Telemedicine [facility] Sleep Program - [address] [phone] Dwight Colbert [address] [place] [address] 02/29/2024 10:30 EDT Appointment [facility] Radiology Nuclear Medicine and PET [address] [address] 02/29/2024 14:30 EDT Appointment [facility] Radiology Nuclear Medicine and PET [address] [phone] 03/01/2024 8:00 EDT Appointment [facility] Radiology Nuclear Medicine and PET [address] [phone] 03/01/2024 9:30 EDT Appointment [facility] Radiology Nuclear [facility] and PET [address] 245331 documented as of this encounter Procedures Procedure [...] GA S ORDERABLES [facility] [address] [place] [address] * (ABNORMAL) HEMAGRAM (08/19/2004 15:37 EST) WBC 14.09(H) 4.0 - 12.4 K/cmm [facility] RBC 4.67 3.86 - 5.04 M/cmm [facility] Hemoglobin 14.0 11.6 - 15.2 gm/dl [facility] HCT 40.3 34.9 - 44.4 % [facility] MCV 86 81 - 98 fl [facility] MCH 30.0 26.7 - 33.3 pg [facility] MCHC 34.7 32.1 - 35.9 gm/dl [facility] PLT 429(H) 141 - 320 K/cmm [facility] RDW-CV 13.5 11.7 - 14.6 % [facility] 08/19/2004 15:3 7 EST 08/19/2004 18:41 EST Rosalio Bueno MD HEMATOLOGY & PF4 ORD ERABLES [facility] [address] [place] [address] documented in this encounter Visit Diagnoses Not on filedocumented in this encounter Care Teams Election Watcher Relationship Specialty Start Date End Date Jasmin Jara PA PCP - General 10/06/09 05/09/10 Trinity Samaniego MD [address] [place] [phone] PCP - General 09/16/09 10/05/09 documented as of this encounter
--- OUTSIDE RECORDS SUMMARY | 2024-01-02 06:24 | XMS_ITS | Encounter Summary ---
Author Organization [facility] Address [address] [place] [address] Care Team Providers Care Spreading Machine Operator Name Role Phone Unavailable Primary Care Provider Unavailabl e Encounter Details Date Type Department Care Team (Late st Contact Info) Description 01/26/2004 12:26 EDT Hospital Encounter [address] [address] Samira Fong MD 0 [place] [address] Social History Tobacco Use Types Packs/Day Years Used Date Smoking Tobacco: Every Day Cigarettes 0.5 13.1 Started: 11/10/2010 Smokeless Tobacco: Never Comments:06/13/20 actively try ing to quit about 5-8 cigs/day Alcohol Use Standard Drinks/Week Comments Yes 0 (1 standard drink = 0.6 oz pur e alcohol) rarely [facility] Utilities Answer Date Recorded In the past 12 months has [employer], gas, oil, or water [employer] threatened to shut off services in your [...] any time in the past 12 m [facility], were you homeless or living in a [...] [facility] Adult Primary Care - [address] 104691 Carrington Calderon MD [address] [phone] 02/27/2024 8:30 EDT Telemedicine [facility] Sleep Program - [address] 150071 Dwight Colbert [address] [place] [address] [phone] 02/29/2024 10:30 EDT Appointment [facility] Radiology Nuclear Medicine and PET [address] [phone] 02/29/2024 14:30 EDT Appointment [facility] Radiology Nuclear Medicine and PET - [address] [phone] 03/01/2024 8:00 EDT Appointment [facility] Radiology Nuclear Medicine and PET [address] [phone] 03/01/2024 9:30 EDT Appointment [facility] Radiology Nuclear Medicine and PET [address] [phone] documented as of this encounter Visit Diagnoses Not on filedocumented in this encounter Additional Health Concerns Infection Onset Date Last Indicated Resolved Time R/O COVID-19 08/04/2020 08/04/2020 08/04/2020 11:4 0 EST documented as of this encounter
--- OUTSIDE RECORDS SUMMARY | 2024-01-02 06:24 | XMS_ITS | Encounter Summary ---
Author Organization [facility] Address [address] [place] [address] Care Team Providers Care Freight Separator Name Role Phone Unavailable Primary Care Provider Unavailabl e Encounter Details Date Type Department Care Team (Latest Contact Info) Description 04/02/2004 17:44 EDT Hospital Encounter [facility] [address] [place] [address] Rigo Rosenbaum MD [address] [place] [phone] Discharge Disposition: Auto Discharge Social History Tobacco [...] [facility] Adult Primary Care - [address] [phone] Carrington Calderon MD [address] [phone] 02/27/2024 8:30 EDT Telemedicine [facility] Sleep Program - [address] [phone] Dwight Colbert [address] [place] [address] 02/29/2024 10:30 EDT Appointment [facility] Radiology Nuclear Medicine and PET - [address] [phone] 02/29/2024 14:30 EDT Appointment [facility] Radiology Nuclear Medicine and PET - [address] [phone] 03/01/2024 8:00 EDT Appointment [facility] Radiology Nuclear Medicine and PET - [address] [phone] 03/01/2024 9:30 EDT [facility] Rad[facility] Nuclear Medicine and PET - [address] [phone] documented as of this encounter Visit Diagnoses Not on filedocumented in this encounter
--- OUTSIDE RECORDS SUMMARY | 2024-01-02 06:24 | XMS_ITS | Encounter Summary ---
Author Organization [facility] Address [address] [place] [address] Care Team Providers Care Electronics Scale Tester Name Role Phone Unavailable Primary Care Provider Unavailabl e Encounter Details Date Type Department Care Team (Late st Contact Info) Description 06/13/2004 Office Visit [facility] - Maple conversion [address] [place] [address] Doris Moreno MD 111 [facility], Level 1 [place] [phone] Social History Tobacco Use Types Packs/Day Years [...] patient was discharged home and accompanied by water engineer. The patient left the Emergency Department ambulatory and via private vehicle. --17:31 Rob Echeverria R.N., E.MCatherine Mars R.N. Locked/Released at 06/13/2004 19:11 by Norma Evans R.N. documented in this encounter Plan of Treatment Upcoming Encounters Date Type Department Care Team (Late st Contact Info) Description 02/21/2024 9:45 EDT Office Visit [facility] Adult Primary Care - [address] [phone] Carrington Calderon MD 1 [facility] Level 1 [place] [phone] 02/27/2024 8:30 EDT Telemedicine [facility] Sleep Program - [address] [place] [address] Dwight Colbert [address] [place] [address] 02/29/2024 10:30 EDT Appointment [facility] Radiology Nuclear Medicine and PET - [address] [address] 02/29/2024 14:30 EDT Appointment [facility] Radiology Nuclear Medicine and PET - [address] [phone] 03/01/2024 8:00 EDT Appointment [facility] Radiology Nuclear Medicine and PET - [address] 717391 03/01/2024 9:30 EDT Appointment [facility] Radiology Nuclear Medicine and PET [address] [address] documented as of this encounter Visit Diagnoses Not on filedocumented in this encounter
--- OUTSIDE RECORDS SUMMARY | 2024-01-02 06:24 | XMS_ITS | Encounter Summary ---
Author Organization [facility] Address [address] [place] [address] Care Team Providers Care Sas Architect Name Role Phone Unavailable Primary Care Provider Unavailabl e Encounter Details Date Type Department Care Team (Latest Contact Info) Description 04/11/2004 12:25 EST Hospital Encounter [facility] Emergency Department - Main [place] [address] [place], [place] 669[address] Emergency, MD Ekaterina Discharge Disposition: Home or [...] [facility] - [address] [phone] Carrington Calderon MD [address] [phone] 02/27/2024 8:30 EDT Telemedicine [facility] Sleep Program - [address] 847851 Dwight Colbert [address] [place], [place] 925[address] 02/29/2024 10:[address] [facility] Radiology Nuclear Medicine and PET [address] [phone] 02/29/2024 14:[address] [facility] Radiology Nuclear Medicine and PET [address] [address] 03/01/2024 8:[address] [facility] Radiology Nuclear Medicine and PET [address] [phone] 03/01/2024 9:[address] [facility] Radiology Nuclear Medicine and PET [address] [phone] documented as of this encounter Procedures Procedure [...] - 98 fl [facility] MCH 29.9 26.7 - 33.3 pg [...] 1.4 % [facility] ABS Neutrophils 7.54 2.20 - 8.85 K/cmm [facility] ABS Lymphs 2.89 1.09 - 3.30 K/cmm [facility] Monocytes 0.82(H) 0.1 - 0.8 K/cmm [facility] Eosinophils 0.12 0.03 - 0.61 K/cmm [facility] ABS Basophils 0.04 0.01 - 0.11 K/cmm [facility] Type of Diff: Automated [facility] 04/11/2004 14:1 0 EST 04/11/2004 14:15 EST Default Emergency MD PACKAGES & DNA PROB E ORDERABLES Performing Organization Address City/[facility] Co de Phone Number [facility] [address] [place] [address] * N. GONORRHOEAE AMPLIFIED PROBE (04/11/2004 13:50 EST) Result No Neisseria gonorrhoeae DNA detected by licensed veterinary technician mediated amplification. [facility] Report Status Final [id number] [facility] Specimen Description [facility] 04/11/2004 13:5 0 EST 04/11/2004 14:05 EST Default Emergency MICROBIOLOGY - GENE RAL ORDERABLES Performing Organization Address City/[facility] Co de Phone Number [facility] [address] [place] [address] * CHLAMYDIA TRACHOMATIS AMPLIFIED PROBE (04/11/2004 13:50 EST) Specimen Description [facility] Result No Chlamydia trachomatis DNA detected by licensed veterinary technician mediated amplification. [facility] Report Status Final [id number] [facility] 04/11/2004 13:5 0 EST 04/11/2004 14:05 EST Default Emergency MICROBIOLOGY - GENE [facility] ORDERABLES Performing Organization Address City/State/[facility] Co mi Phone Number [facility] [address] [place] [address] documented in this encounter Visit Diagnoses Not on filedocumented in this encounter
--- OUTSIDE RECORDS SUMMARY | 2024-01-02 06:24 | XMS_ITS | Encounter Summary ---
Author Organization [facility] Address [address] [place] [address] Care Team Providers Care Sock Knitting Machine Operator Name Role Phone Unavailable Primary Care Provider Unavailabl e Encounter Details Date Type Department Care Team (Late st Contact Info) Description 01/27/2004 Office Visit [facility] - Maple conversion [address] [place] [address] Samira Fong MD 0 [place] [phone] Social History Tobacco Use Types Packs/Day Years [...] SOCIAL HISTORY Nonsmoker. FAMILY HISTORY works at [employer] ADDITIONAL NOTES The nursing notes have been [...] instructions. Samira Fong M.D. (Electronically signed Samira Fnog M.D. 01/29/2004 12:31) Physician's Clinical Report Walk-In [...] hot water. Pain level now: 11/13. Treatment OIL LEASE OPERATOR: ice and (arrives with dressing on right [...] The patientwas discharged home and accompanied by underground production foreperson. The patient left the Emergency Department ambulatory and via private vehicle. Departure time: 14:31 --1431 Rob Cardoso R.N. Locked/Released at 01/26/2004 14:31 by Lara Sparks R.N. documented in this encounter Plan of Treatment Upcoming Encounters Date Type Department Care Team (Late st Contact Info) Description 02/21/2024 9:45 EDT Office Visit [facility] Adult Primary Care - [address] [phone] Carrington Calderon MD [address] [phone] 02/27/2024 8:30 EDT Telemedicine [facility] Sleep Program - [address] [phone] Dwight Colbert [address] [place] [address] [phone] 02/29/2024 10:30 EDT Appointment [facility] Radiology Nuclear Medicine and PET [address] [phone] 02/29/2024 14:30 EDT Appointment [facility] Radiology Nuclear Medicine and PET - [address] [address] 03/01/2024 8:00 EDT Appointment [facility] Radiology Nuclear Medicine and PET [address] [address] 03/01/2024 9:30 EDT Appointment [facility] Radiology Nuclear Medicine and PET [address] [address] documented as of this encounter Visit Diagnoses Not on filedocumented in this encounter
--- OUTSIDE RECORDS SUMMARY | 2024-01-02 06:24 | XMS_ITS | Data Portability ---
Author Organization [facility] [place] [address] [address] [place] [address] Assessment No assessment recorded. Plan of Treatment Reminders Order Date Submit Date Provider Last Modified By Organization Details Last Modified Time Details Appointments None recorded . Lab None recorded . Referral None recorded . Procedures None recorded . Surgeries None recorded . Imaging XR, ankle, 3 or more view - fall, rolled ankle sat 024 07/25/19 [facility] Radiology Center (Xrays Only), [address] [place] [address], [address], 07:00:24 Medication Orders None recorded . Patient TargetsNo targets recorded. Patient InstructionsNo instructions recorded. Reason for Referral None Reported. Results Created Date Observation Date Name Description Value Unit Range Abnormal Flag LastModifiedBy Organization Detail LastModifiedTime 07/25/19 24 07/25/2023 XR, ankle , 3 or more view No observ ation record ed. [address] Radiology Center (Xrays Only) [address] [place] [address], [address], 08/04/2023 15:52:34 Result Notes None recorded. Procedures Surgical History None recorded. Imaging Results Imaging Date Name Status LastModified by Organiz ation Details LastModified Time 07/25/2023 XR, ankle, 3 or more view completed [address] Radiology Center (Xrays Only) [address] [place], [address], 08/04/2023 15:52:34 Procedure Notes None recorded. Medical Equipment None Reported. Allergies Allergen ID Allergen Name Allergen Category Reaction Reaction Severity Criticality Documentation Date Start Date Code Code System Note Provider Name and Address Organization Details Recorded Time 02761 Advil medicatio n rash severe high 07/25/2023 44466 0 RxNorm SANDOR Burch, [facility] 4 09:53:50 81203 pomegrana te fruit extract food rash severe high 07/25/2023 83328 01 RxNorm SANDOR Burch, [facility] 4 09:54:16 26747 citalopra m medicatio n rash severe high 07/25/2023 2556 RxNorm SANDOR Burch, [facility] 4 09:54:34 Medications Name Sig [...] 4 20 /min 162.56 cm 33.5 kg/m2 73332.5 1 g 97.1 [degF] 99 % 99 % 111 /min 126 mm[Hg] 82 mm[Hg] Kylie Barros MA [facility] 4 09:58:29 Social History Question Answer Notes LastModified by Organizat ion Details LastModified Time Tobacco Smoking Status Current Every Day Smoker Kylie Barros MA [facility], [place] - [facility]. 07/25/2023 09:56:39 What Was The Date Of Your Most Recent Tobacco Screening? 07/25/2023 [email or web address] Information not available 07/25/2023 Has Tobacco Cessation Counseling Been Provided? Yes [email or web address] Information not available 07/25/2023 On What Date Was Tobacco Cessation Counseling Provided? 07/25/2023 [email or web address] Information not available 07/25/2023 Do You Or Have You Ever Used Any Other Forms Of Tobacco Or Nicotine? No [email or web address] Information not available 07/25/2023 Sex: Female Functional Status None recorded. Mental Status None recorded. Family History Nothing Reported. Medical History No medical history recorded. Gynecological HistoryNo gynecological history recorded. Obstetrics History GPAL:G 0 P 0 0 0 0 Past Encounters Encounter ID Performer Location Encounter Start Date Encounter Closed Date Diagnosis/Indication Diagnosis SNOMED-CT Code [id number] YARA HENLEY PA-C [address] [place] [address] 07/25/2023 09:19:05 07/25/2023 10:14:51 Pain of right ankle joint [id number] 06 Health Concerns Section Related Observation LastModified by Organization Detai ls LastModified Time None Recorded Concern Status LastModified by Organization Details LastModified Time None Recorded Advance Directives Directive None Recorded Payers Encounter Date Sequence Insurance Name Policy Number Policy Cole Covered Member ID Cole Member ID Guarantor Name 07/25/2023 1 [place] [employer] [place] Cristy Luo [id number] Cristy Luo Notes Date Note Type Note [...] baseline. Has tried rest ice elevation and novs-ynb-vqvoqie pain medications with minimal relief. Continues to have significant pain. YARA HENLEY PA-C [address], [place], [address], [facility]. 07/25/2023 10:21:45 OBGyn Episode No OBEpisode recorded.
--- OUTSIDE RECORDS SUMMARY | 2024-01-02 06:24 | XMS_ITS | Encounter Summary ---
Author Organization [facility] Address [address] [place] [address] Care Team Providers Care Ice Cream Vault Worker Name Role Phone Unavailable Primary Care Provider Unavailabl e Encounter Details Date Type Department Care Team (Late st Contact Info) Description 04/11/2004 Office Visit [facility] - Maple conversion [address] [place] [address] Josh Coelho, PA-C [address] [facility], Level 1 [place] [address] Social History Tobacco Use Types Packs/Day Years [...] Discharge instructions reviewed with the patient and internet assessor. Warnings reviewed. Reviewed medication. Treatments reviewed. Reviewed referrals. Patient and internet assessor verbalized understanding. The patient was discharged home and accompanied by internet assessor. The patient left the Emergency Department ambulatory and via private vehicle. Patient has no belongings. --15:23 Rob Gould R.N., R.N. Locked/Released at 04/11/2004 23:18 by Fermin Millan R.N. documented in this encounter Plan of Treatment Upcoming Encounters Date Type Department Care Team (Late st Contact Info) Description 02/21/2024 9:45 EDT Office Visit [facility] Adult Primary Care - [address] [phone] Carrington Calderon MD [address] [phone] 02/27/2024 8:30 EDT Telemedicine [facility] Sleep Program - [address] [phone] Dwight Colbert [address] [place] [address] [phone] 02/29/2024 10:30 EDT Appointment [facility] Radiology Nuclear Medicine and PET - [address] 908321 02/29/2024 14:30 EDT Appointment [facility] Radiology Nuclear Medicine and PET [address] [phone] 03/01/2024 8:00 EDT Appointment [facility] Radiology Nuclear Medicine and PET [address] [phone] 03/01/2024 9:30 EDT Appointment [facility] Radiology Nuclear Medicine and PET [address] [phone] documented as of this encounter Visit Diagnoses Not on filedocumented in this encounter
--- OUTSIDE RECORDS SUMMARY | 2024-01-02 06:24 | XMS_ITS | Encounter Summary ---
Author Organization [facility] Address [address] [place] [address] Care Team Providers Care Court Abstractor Name Role Phone Unavailable Primary Care Provider Unavailabl e Encounter Details Date Type Department Care Team (Latest Contact Info) Description 06/13/2004 14:28 EST Hospital Encounter [facility] Emergency Department - Main [place] [address] [place], [place] [address] Emergency, MD Ekaterina Discharge Disposition: Home or [...] [facility] Adult Primary Care - [address] [address] Carrington Calderon MD [address] [phone] 02/27/2024 8:30 EDT Telemedicine [facility] Sleep Program - [address] [phone] Dwight Colbert [address] [place], [place] [phone] 02/29/2024 10:30 EDT Appointment [facility] Radiology Nuclear Medicine and PET [facility] [address] [place], [place] [phone] 02/29/2024 14:30 EDT Appointment [facility] Radiology Nuclear Medicine and PET [address] [phone] 03/01/2024 8:00 EDT Appointment [facility] Radiology Nuclear Medicine and PET [address] [phone] 03/01/2024 9:30 EDT Appointment [facility] Radiology Nuclear Medicine and PET [address] [address] documented as of this encounter Procedures Procedure [...] D SUPPORT & PHONE RESULT [facility] [address] [place] [address] * (ABNORMAL) HEMAGRAM AND DIFFERENTIAL (06/13/2004 15:19 EST) WBC 14.22(H) 4.0 - 12.4 K/cmm [facility] RBC 4.86 3.86 - 5.04 M/cmm [facility] Hemoglobin 14.1 11.6 - 15.2 gm/dl [facility] HCT 41.8 34.9 - 44.4 % [facility] MCV 86 81 - 98 fl [facility] MCH 29.0 26.7 - 33.3 pg [facility] MCHC 33.7 32.1 - 35.9 gm/dl [facility] PLT 428(H) 141 - 320 K/cmm [...] [facility] Atyp Lymphs 0.28 K/cmm [facility] Monocytes 0.85(H) 0.1 - 0.8 K/cmm [facility] Eosinophils 0.43 0.03 - 0.61 K/cmm [facility] RBC Morphology Normal [facility] Type of Diff: Manual [facility] 06/13/2004 15:1 9 EST 06/13/2004 15:20 EST Default Emergency MD PACKAGES & DNA PROB E ORDERABLES Performing Organization Address City/State/[facility] Co de Phone Number [facility] [address] [place] [address] documented in this encounter Visit Diagnoses Not on filedocumented in this encounter
--- OUTSIDE RECORDS SUMMARY | 2024-01-02 06:24 | XMS_ITS | Encounter Summary ---
Author Organization [facility] Address [address] [place] [address] Care Team Providers Care Teleprinter Name Role Phone Jasmin Jara Primary Care Provider Unavail Trinity Wilson MD Primary Care Provider [phone] Encounter Details Date Type Department Care Team (Late st Contact Info) Description 04/02/2004 Results Only [facility] Family Medicine - [address] [address] Mervin Arevalo MD [address] [place] [address] [phone] Social History Tobacco Use Types [...] [facility] Adult Primary Care - [address] [id number] Carrington Calderon MD [address] [place] [phone] 02/27/2024 8:30 EDT Telemedicine [facility] Sleep Program - [address] [phone] [address] [place] [address] 02/29/2024 10:30 EDT [facility]ointment [facility] Radiology Nuclear Medicine and PET - [address] [address] 02/29/2024 14:30 EDT Appointment [facility] Radiology Nuclear Medicine and PET - [address] [address] 03/01/2024 8:00 EDT Appointment [facility] Radiology Nuclear Medicine and PET [address] [id number] 03/01/2024 9:30 EDT Appointment [facility] Radiology Nuclear Medicine and PET [address] [address] documented as of this encounter Procedures Procedure Name Priority Date/Time Associated Diagnosis Comments N. GONORRHOEAE AMPLIFIED PROBE Routine 04/02/2004 15:58 EDT ZZCHLAMYDIA TRACHOMATIS AMPLIFIED PROBE Routine 04/02/2004 15:58 EDT CYTOPATHOLOGY Routine 04/02/2004 0:00 EDT documented in this encounter Results * N. GONORRHOEAE AMPLIFIED PROBE (04/02/2004 15:58 EDT) Result No Neisseria gonorrhoeae DNA detected by salvage winder mediated amplification. [facility] Report Status Final [id number] [facility] Specimen Description [facility] 04/02/2004 15:5 8 EDT 04/02/2004 22:22 EDT Mervin Arevalo MD MICROBIOLOGY - GENER AL ORDERABLES [facility] [address] [place] [address] * CHLAMYDIA TRACHOMATIS AMPLIFIED PROBE (04/02/2004 15:58 EDT) Specimen Description [facility] Result No Chlamydia trachomatis DNA detected by salvage winder mediated amplification. [facility] Report Status Final [id number] [facility] 04/02/2004 15:5 8 EDT 04/02/2004 22:21 EDT Mervin Arevalo MD MICROBIOLOGY - GENER AL ORDERABLES [facility] [address] [place] [address] * CYTOPATHOLOGY (04/02/2004 0:00 EDT) Pathology Report: CYTOPATHOLOGY REPORT Reports generated via electronic interface contain original data; however they are lacking the format of the original report. Caution should be taken when reading/interpreti ng unformatted reports. Name: ? CRISTY DEL VALLE ? Accession #: ? [id number] : ? 1985 (Age: 19) ??F ?Collect [...] Date: ??04/09/2004 10:01 End of Report [facility] 04/02/2004 04/06/2004 Mervin Arevalo MD PATHOLOGY ORDERABLES Performing Organization Address City/State/[facility] Co de Phone Number [facility] [address] [place] [address] documented in this encounter Visit Diagnoses Not on filedocumented in this encounter Care Teams Teleprinter Relationship Specialty Start Date End Date Jasmin Jara PA PCP - General 10/06/09 05/09/10 Trinity Samaniego MD [address] [place] [phone] PCP - General 09/16/09 10/05/09 documented as of this encounter
[2024-01-02] MEDS: Lactated Ringers 1,000 ML 30 ML IV (06:54)
--- NOTE | 2024-01-02 07:22 | ANES.PREOP_ITS ---
General Info Date of Service Date Performed: 01/02/24 Height: 5 ft 4 in Weight: 93.2 kg Body Mass Index (BMI): 35.2 Surgical Procedure: Operation Date: 01/02/24 07:40 Proposed Procedure Side Surgeon p Trans Metatarsal Amputation Left Madelin RigginsKIRILL gilliland Actual Procedure Side Surgeon p Trans Metatarsal Amputation Left Madelin Ojeda DPM Pre-Op Diagnosis Post-Op Diagnosis Diabetic foot ulcer Diabetic foot ulcer Meds Allergies and Home Medications Allergies Allergy/AdvReac Type Severity Reaction Status Date / Time ibuprofen (From Advil) Allergy Severe Anaphylaxis Verified 01/02/24 06:34 pomegranate Allergy Severe Anaphylaxis Verified 01/02/24 06:34 citalopram AdvReac Severe Bodily harm Verified 01/02/24 06:34 Home Medication ?Medication ?Instructions ?Recorded insulin glargine 100 unit/mL (3 40 unit subcut HS 01/14/22 mL) subcutaneous pen (Lantus Solostar U-100 Insulin) blood-glucose sensor (Fresh Dish G6 #6 ea 05/03/22 Sensor device) lidocaine 5 % topical patch 1 patch topical DIRECTED 05/25/22 (Lidoderm) empagliflozin 10 mg tablet 10 mg PO DAILY #30 tabs 08/28/22 (Jardiance) tramadol 50 mg tablet 50 mg PO Q6H PRN PRN #30 tabs 08/28/22 omeprazole 40 mg capsule,delayed 40 mg PO DAILY #30 caps 11/09/22 release ondansetron 4 mg disintegrating 4 mg PO Q6H PRN #60 tabs 02/20/23 tablet insulin aspart U-100 100 unit/mL See Rx Instructions subcut TID 04/14/23 (3 mL) subcutaneous pen (Novolog FlexPen U-100 Insulin aspart) duloxetine 40 mg capsule,delayed 40 mg PO DAILY 05/24/23 release sitagliptin phosphate 25 mg tablet 25 mg PO DAILY 08/06/23 (Januvia) gabapentin 300 mg tablet 300 - 900 mg PO DIRECTED 09/08/23 honey 80 % topical gel (MediHoney 1 applic topical DAILY #44 mL 10/18/23 (honey)) sulfamethoxazole 800 1 tab PO BID #14 tabs 12/29/23 mg-trimethoprim 160 mg tablet (Bactrim DS) metoclopramide HCl 10 mg tablet 10 mg PO Q6H PRN 12/30/23 (Reglan) Current Visit Medications: Current Medications Generic Name Dose Route Start Last Admin Trade Name Bonnie PRN Reason Stop Dose Admin Ringer's Solution 1,000 mls @ 30 mls/hr 01/02/24 06:00 01/02/24 06:54 IV 01/02/24 23:59 30 mls/hr INFUSION ROXANA Administration Cefazolin Sodium/Dextrose 2 gm in 50 mls @ 100 mls/hr 01/02/24 06:00 Ancef Duplex IVPB 01/02/24 23:59 PREOP ROXANA IV Miscellaneous Supplies 1 each 01/02/24 06:00 Iv Access IV 01/02/24 23:59 DIRECTED ROXANA Sodium Chloride 0 ml 01/02/24 06:00 Normal Saline Flush 10 Ml Syr IV 01/02/24 23:59 PRN PRN Sodium Chloride 0 ml 01/02/24 06:00 Normal Saline 10 Ml Vial IJ 01/02/24 23:59 DIRECTED PRN Sterile Water 0 ml 01/02/24 06:00 Water,Injection,Sterile 10 Ml Vial IJ 01/02/24 23:59 DIRECTED PRN PFSH Active Problems Active Problems: Problem Status Onset Code Preoperative clearance Acute Z01.818 Contracture, plantar fascia Acute M72.2 Neuropathic ulcer of left foot with fat layer exposed Acute L97.[address] of the abdomen Acute R93.5 Gallbladder sludge Acute K82.8 Diabetic foot ulcer Acute E11.621, L97.509 Intractable nausea and vomiting Acute R11.2 Ulcer of left foot with fat layer exposed Acute L97.522 Osteomyelitis of left foot Acute M86.9 DVT (deep venous thrombosis) Chronic I82.409 Cellulitis of foot, left Acute L03.116 Corns and callosities Acute L84 Leukocytosis Acute D72.829 Hypomagnesemia Acute E83.42 Chronic nausea Acute R11.0 Calf pain Acute M79.669 Cellulitis of foot Acute L03.119 Diabetic toe ulcer Acute E11.621, L97.509 Abscess Acute L02.91 Vomiting Acute R11.10 Gastroparesis Chronic K31.84 IDDM (insulin dependent diabetes mellitus) Chronic Tobacco abuse Acute Z72.0 Cannabinoid hyperemesis syndrome Acute R11.2, F12.90 Upper GI bleeding Acute K92.2 UTI (urinary tract infection) Acute N39.0 Diabetic foot ulcer associated with secondary diabetes mellitus Resolved E08.621, L97.509 Hypokalemia Acute E87.6 Type 2 diabetes mellitus with diabetic neuropathy Chronic E11.40 Ulcer of other part of foot Acute L97.509 Amputation of toe of left foot Acute S98.132A Infection of toe Acute L08.9 Osteomyelitis Acute M86.9 Medical History Medical History Ulcerative esophagitis Peripheral neuropathy History of osteomyelitis IBS (irritable bowel syndrome) History of kidney stones Chest pain r/t Anxiety Back pain Cellulitis of third toe, left Type 2 diabetes mellitus History of cellulitis toe Suicide attempt Anxiety and depression Diabetic neuropathy Diabetes Type 1, per patient she said she was told she had diabetes type 2. Medical History Comments:: Pt. instructed to take, Gabapentin, Omeprazole, and and her duloxetine with a small sip of water pre op, and is not taking any insulin AM of, will take regular dose of long acting insulin night before, as well as the abx prescribed by Dr. Ojeda, but she will hold the rest of her meds and resume after surgery. 01/03/2024 Patient shiny riddle ring with clear stone taped on left hand. Shiny riddle bracelet and shiny riddle ring with white stone taken off and put in plastic bag given to spouse arnold per patient instructions. Surgical History Surgical History History of amputation 2nd toe left foot H/O tubal ligation Amputation of left great toe Tobacco Smoking/Tobacco Use Status: Current every day Tobacco Type: cigarettes Smoking cigarettes per day: 10 Alcohol Alcohol Intake: current Alcohol intake frequency: holidays/special occasions only Substance Use Substance use: Daily Substance use type: marijuana Vital Signs and Lab Results Vital Signs Most Recent Vital Signs in EMR: Most Recent Vital Signs Temp Pulse Resp BP Pulse Ox 36.7 C 113 H 16 117/83 97 01/02/24 06:36 01/02/24 06:36 01/02/24 06:36 01/02/24 06:36 01/02/24 06:36 Point of Care Results Point of Care Results: POC- Test(urine) Negative 01/02/24 07:05 Finger Stick Blood Glucose 255 01/02/24 06:50 Lab Results Blood Type / Crossmatch: No Data to Display Complete Blood Count: No Data to Display Complete Metabolic Panel: No Data to Display Liver Function Panel: No Data to Display Coagulation Panel: No Data to Display Cardiac Panel: No Data to Display Arterial Blood Gas: No Data to Display Venous Blood Gas: No Data to Display Pancreas Panel: No Data to Display Thyroid Panel: No Data to Display Infectious Disease: No Data to Display Blood Cultures: No Data to Display Toxicology Panel: No Data to Display Panel: No Data to Display Imaging and Studies Imaging and Studies Study information below may be from another EMR and interpreted by another provider. Please see original notes in EMR for more complete details. EKG Summary: 04/27: sinus tachy. Anesthesia Assessment and Plan Anesthesia History Personal History: No History of Anesthesia Complications Family History: No Family History of Anesthesia Complications Exercise Tolerance Exercise Tolerance: Metabolic Equivalents>4 Pertinent Negatives Pertinent Negatives: No Symptoms of GERD (RX) Cardiac & Pulmonary Exam Cardiac Exam: Normal S1/S2 Heart Sounds Pulmonary Exam: Clear Bilateral Breath Sounds Implantable Cardiac Device Does patient have a Pacemaker or an ICD?: No Airway Exam Known Difficult Airway: No Mallampati Class: 2 Mouth Opening: Normal (> 3cm) Thyromental Distance: Greater than 3 cm Neck Range of Motion: Full ROM Neck Circumference: Normal Teeth Condition: Normal Dentition ASA Classification ASA Score: ASA 3 Emergency Case?: No NPO Status NPO Status: NPO Clears >2 hours, Solids >8 hours Status Status: Negative HCG Anesthesia Plan Resuscitation Status: Full Code Anesthesia Technique: General Anesthesia Airway Planned: Endotracheal Tube Monitors Used: Standard Monitors
[2024-01-02] MEDS: ceFAZolin 2 GM/50 ML BAG IVPB (07:43)
[2024-01-02] MEDS: Lidocaine 1% Pres-Free 30 ML VIAL (08:13)
--- NOTE | 2024-01-02 08:23 | AMP_PTH ---
PATIENT: Cristy Luo LOC: [facility] U#:[id number] AGE/SX: 38/F ROOM: RE01/02/[address]: Madelin Ojeda DPM : 1985 BED: DIS: 01/02/2024 SPEC #: [id number] RECD: 01/02/24 12:23 STATUS: SENTHIL REAranza #: [id number] CONOR: 01/02/24 08:[address]: Madelin Ojeda DEPT: Surgical Specimen RECD BY: Staci Wilburn ENTERED: 01/02/24 12:24 SP TYPE: Amputation OTHR DR: CARLY PADGETT MD Tissues: 1 - AMPUTATION EXTREMITY(NOT TRAUMA) Procedures: GROSS AND MICRO LEVEL 5 DECALCIFICATION Comments: [id number]
[2024-01-02] MEDS: Bupivacaine 0.25% Pres-Free 30 ML VIAL (09:08)
--- NOTE | 2024-01-02 09:44 | W.PM.DSUDISC ---
Date of service: 01/02/24 Time of Service: 07:30 Discharge Plan Disposition Patient Disposition: Home Condition: Stable Discharge Details Attending Provider: Madelin Ojeda Primary Care Provider: CARLY PADGETT Home Meds and New Rx's Prescriptions: No Action omeprazole 40 mg capsule,delayed release(DR/EC) 40 mg PO DAILY Qty: 30 5RF MediHoney (honey) 80 % gel 1 applic topical DAILY Qty: 44 0RF sulfamethoxazole-trimethoprim [Bactrim DS] 800-160 mg tablet 1 tab PO BID Qty: 14 0RF gabapentin 300 mg tablet 300 - 900 mg PO DIRECTED Rx Instructions: 300 qam 1200 hs insulin glargine [Lantus Solostar U-100 Insulin] 100 unit/mL (3 mL) insulin pen 40 unit SUBCUT HS Patient Comments: INJECT 40 UNITS SUBCUTANEOUSLY AT BEDTIME insulin aspart U-100 [Novolog FlexPen U-100 Insulin] 100 unit/mL (3 mL) insulin pen See Rx Instructions SUBCUT TID Patient Comments: adjusted to carbs and pre-meal BS, up to 8u SUBCUTANEOUSLY THREE TIMES DAILY WITH MEALS Rx Instructions: subcutaneously three times a day; lidocaine [Lidoderm] 5 % adhesive patch,medicated 1 patch topical DIRECTED Patient Comments: PLACE 1 PATCH ONTO THE SKIN DAILY. PATCHE(S) MAY REMAIN IN PLACE FOR UP TO 12 HOURS IN ANY 24-HOUR PERIOD duloxetine 40 mg capsule,delayed release(DR/EC) 40 mg PO DAILY Patient Comments: TAKE 1 CAPSULE BY MOUTH ONCE DAILY metoclopramide HCl [Reglan] 10 mg tablet 10 mg PO Q6H PRN Rx Instructions: take 30 minutes before meals and at bedtime (DME) Dexcom G6 Sensor Device See Rx Instructions .Route Qty: 6 0RF Rx Instructions: As directed Jardiance 10 mg Tablet 10 mg PO DAILY Qty: 30 0RF tramadol 50 mg Tablet 50 mg PO Q6H PRN PRNQty: 30 0RF ondansetron 4 mg tablet,disintegrating 4 mg PO Q6H PRNQty: 60 0RF Januvia 25 mg tablet 25 mg PO DAILY Discharge Instructions Additional Instructions: Patient to keep the dressings clean dry and intact. Please elevate the left foot. Patient to remain nonweightbearing to the left lower extremity. Apply ice behind the ankle and behind the 10 minutes on 20 minutes off [id number]. If the dressings get saturated with blood please call us immediately. Patient to follow-up in office on , 01/04/2021 Stand Alone Forms: Anesthesia Discharge Inst., Podiatry Instructions-DSU, Jennifer White (DSU) Equipment/Supplies: Non-Weight Bearing Crutches Activity:: Elevate Remove Dressings/Wound Care:: Do Not Remove Shower/Bathe:: Cover Diet:: As Tolerated Discharge Orders Discharge Orders: Discharge Order (Routine); Ordered 01/02/24 Ordered By: Madelin Ojeda DS: Diagnosis Discharge Diagnosis (1) Neuropathic ulcer of left foot with fat layer exposed: Status: Acute (2) Osteomyelitis of left foot: Status: Acute (3) Type 2 diabetes mellitus with diabetic neuropathy: Status: Chronic (4) Ulcer of other part of foot: Status: Acute
--- NOTE | 2024-01-02 09:47 | W.PM.OP ---
Date of service: 01/02/24 Time of Service: 07:30 Operative Note Operative Note DATE OF PROCEDURE: 01/02/24 PRE-OP DIAGNOSIS: Nonhealing ulcer, left foot POST-OP DIAGNOSIS: same PROCEDURE: Transmetatarsal amputation, left foot SURGEON: Madelin Ojeda ANESTHESIA TYPE: Local By Surgeon (1% lidocaine plain preop, 20 mm) Refer to Anesthesia Record ESTIMATED BLOOD LOSS: 20 PATHOLOGY: other (Soft tissue and bone, left foot) TOURNIQUET TIME: 40 COMPLICATIONS: None Patient was transported to: same day Patient's condition: stable Indications: This is a 38-year-old female patient with recurrent nonhealing ulcer to the plantar aspect of the left first metatarsal head with history of amputation to the left hallux as well. Patient has undergone serial wound debridement with fairly recurrent cellulitis and treatment with antibiotics and ulcer persists. Patient has elected to undergo a transmetatarsal amputation. I discussed the risks benefits and possible complications of the procedure including but not limited to pain, nerve pain, delayed healing, nonhealing, wound dehiscence, reulceration, need for further surgery or amputation, DVT, PE, stroke, ID or with anesthesia. Patient understands and symptoms of risks. No guarantees or warranties of the procedure on the right. No contraindications noted to the procedure at this time. Procedure Description: Patient was identified in preop holding. Site was marked. Consent was signed reviewed in chart. Medical clearance and. No complaints patient went to the procedure. Patient was brought to the operating room, placed on the operating table in supine position. After the induction of general anesthesia the left ankle tourniquet was applied about the left ankle. The left foot was prepped with alcohol and a regional block was performed using 20 mL of 1% lidocaine plain. The left lower extremity was then scrubbed prepped and draped in the usual aseptic manner. The ankle tourniquet was inflated. A lazy S incision was planned for transmetatarsal amputation both plantar and distal using a sterile skin marker. Incision site was then made using sterile #15 blade through skin and subcutaneous tissue this was deepened to the level of the periosteum. The skin flap was then reflected proximally and distally thus exposing the periosteum of the left and 5 metatarsals. Once the periosteum was exposed, using an oscillating saw the metatarsals 1-5 were resected following the normal metatarsal parabola with a dorsal distal and plantar proximal Cut. The metatarsal was then passed from the operative field sent to pathology. The capsular and tendinous structures which were exposed were then excised using a sterile #15 blade. All potential bleeders were then ligated using 0 Vicryl. The tourniquet was then deflated to examine the operative field for any active bleed. No active bleeding was noted healthy venous bleeding was noted from the incision site. Incision site was then reapproximated using 0 Vicryl for deep sutures. The skin was then reapproximated using 3-0 Prolene. The left foot was then cleansed with sterile saline. A EDGARDO incisional VAC was then applied To the bleeding and avoid having to use a drain. This was then reinforced with 4 x 4, Kerlix and an Dillon wrap. Patient tolerated procedure and anesthesia well with vital signs stable and vascular status intact to the left foot. Patient was transferred to the same-day for further monitoring. Be discharged home in stable. Patient is to keep the dressings clean dry and intact. Patient will appointment in office on
--- NOTE | 2024-01-02 10:30 | DI.RAD_ITS ---
Exam(s) XR FOOT LT COMPLETE EXAM: XR FOOT LT COMPLETE CLINICAL HISTORY: post op. TECHNIQUE: 2D digital imaging was performed. Three views. COMPARISON: CR XR FOOT LT COMPLETE from 11/30/2023 FINDINGS: BONES: Status post amputation at the mid 1st through 5th metatarsals. No bony destructive lesion is seen. JOINTS: No dislocation present. SOFT TISSUE: Distal swelling. Overlying gauze. IMPRESSION: Status post amputations at the mid metatarsal level. DATA REPOSITORY: RADIATION DOSE DELIVERED:
--- NOTE | 2024-01-02 10:49 | W.ANESPOSTOP ---
Postoperative Evaluation Date, Time and Location Date Performed: 01/02/24 Time Performed: 10:50 Patient Location: Day Surgery Unit Vital Signs Most Recent Imported Vital Signs: Most Recent Vital Signs Temp Pulse Resp BP Pulse Ox 36.7 C 97 H 14 97/65 L 97 01/02/24 09:48 01/02/24 09:48 01/02/24 09:48 01/02/24 09:48 01/02/24 09:48 Pain Score Most Recent Pain Score: Most Recent Pain Score Pain Level 5 01/02/24 09:48 Assessment Mental Status: Awake (Alert & Oriented to Patient Baseline) Airway and Respiratory Function: Patent airway with normal (patient baseline) respiratory exam Cardiovascular Function: Hemodynamically Stable Hydration Status: Adequately Hydrated Nausea & Vomiting: No Nausea or Vomiting Pain: Pt. Denies Any Pain Peripheral Nerve Block: Patient did not receive a nerve block
[2024-01-02] MEDS: traMADol 50 MG TAB PO (10:55)
== END 2024-01-02 11:26 | disposition home or self-care (01) ==
PROVIDERS: PCP Internal Medicine; Visit Provider Podiatrist
PROC: (CPT 28805; principal; 2024-01-02 07:30)
DX: E11.621 Type 2 diabetes mellitus with foot ulcer (principal); L97.522 Non-pressure chronic ulcer of other part of left foot with fat layer exposed; Z79.4 Long term (current) use of insulin; E11.42 Type 2 diabetes mellitus with diabetic polyneuropathy; M86.172 Other acute osteomyelitis, left ankle and foot; I96 Gangrene, not elsewhere classified
CPT/HCPCS: 28805; 00123; 88300; 73630; 88307; 88311; J0131; J0665; J0690; J2001; J2250; J2371; J2405; J2704; J3010

== ENCOUNTER 2024-02-06 12:25 | Emergency (ER) | payer SELFPAY ==
[2024-02-06 12:29] VITALS: BP 116/84; PULSE 120; RESP 20; TEMP 36.2
--- NOTE | 2024-02-06 12:45 | DI.RAD_ITS ---
Exam(s) XR CERVICAL SP SALAZAR TRAUMA 2-3V EXAM: XR CERVICAL SP SALAZAR TRAUMA 2-3V CLINICAL HISTORY: Neck pain. TECHNIQUE: 2D digital imaging was performed. COMPARISON: No exams were available for comparison FINDINGS: Four views. Fracture, listhesis, nor offset of the spinal laminar line. All disc spaces exhibit normal height. Odontoid intact. No significant facet arthropathy nor facet malalignment. No significant prevertebr al soft tissue swelling. No incidental cervical ribs. IMPRESSION: No significant osseous findings in the cervical spine. DATA REPOSITORY: RADIATION DOSE DELIVERED:
--- NOTE | 2024-02-06 12:52 | ED.GENADUL_ITS ---
Discharge Plan Disposition Patient Disposition: Home Condition: Stable Discharge Details Clinical Impression: Acute torticollis Primary Care Provider: CARLY PADGETT ED Provider: Katiana Adams Home Meds and New Rx's Prescriptions: New cyclobenzaprine 10 mg tablet 10 mg PO TID PRN (Reason: muscle spasm) Qty: 7 0RF Rx Instructions: Take one tablet up to 3 times daily as needed for muscle spasm Continued omeprazole 40 mg capsule,delayed release(DR/EC) 40 mg PO DAILY Qty: 30 5RF MediHoney (honey) 80 % gel 1 applic topical DAILY Qty: 44 0RF sulfamethoxazole-trimethoprim [Bactrim DS] 800-160 mg tablet 1 tab PO BID Qty: 28 0RF gabapentin 300 mg tablet 300 - 900 mg PO DIRECTED Rx Instructions: 300 qam 1200 hs insulin glargine [Lantus Solostar U-100 Insulin] 100 unit/mL (3 mL) insulin pen 50 unit SUBCUT HS insulin aspart U-100 [Novolog FlexPen U-100 Insulin] 100 unit/mL (3 mL) insulin pen 15 unit SUBCUT TID Patient Comments: adjusted to carbs and pre-meal BS, up to 15u SUBCUTANEOUSLY THREE TIMES DAILY WITH MEALS lidocaine [Lidoderm] 5 % adhesive patch,medicated 1 patch topical DIRECTED Patient Comments: PLACE 1 PATCH ONTO THE SKIN DAILY. PATCHE(S) MAY REMAIN IN PLACE FOR UP TO 12 HOURS IN ANY 24-HOUR PERIOD duloxetine 40 mg capsule,delayed release(DR/EC) 40 mg PO DAILY Patient Comments: TAKE 1 CAPSULE BY MOUTH ONCE DAILY metoclopramide HCl [Reglan] 10 mg tablet 10 mg PO Q6H PRN Rx Instructions: take 30 minutes before meals and at bedtime (DME) Dexcom G6 Sensor Device See Rx Instructions .Route Qty: 6 0RF Rx Instructions: As directed tramadol 50 mg Tablet 50 mg PO Q6H PRN PRNQty: 30 0RF ondansetron 4 mg tablet,disintegrating 4 mg PO Q6H PRNQty: 60 0RF Discharge Instructions Instructions: Torticollis, Adult Additional Instructions: X-ray shows some straightening but no dislocation or fractures in the neck. I do suspect you have a muscle strain. Please take the muscle relaxers as directed. These may make you sleepy. Continue to alternate ice and heat and try massage. A physical therapy referral was given to you. Please call the numbers on there to be seen by physical therapy. Follow up with primary care provider in 3-5 days. Return to ED sooner if any worsening or concerns. Please take Tylenol or Ibuprofen with food every 4-6 hours as needed for pain and swelling. Stand Alone Forms: Physical Therapy Referral Discharge Data Discharge Date/Time-TO BE ENTERED AT DEPARTURE: 02/06/24 14:16 HPI General Mode of arrival: ambulatory . Date/Time Provider Initiated Documentation: 02/06/24 12:38 . Limitations to Documentation: no limitations . Information obtained by: patient, RN notes reviewed and old records reviewed . HPI Narrative: Patient reports neck pain x 4 days. Reports pain with rotation. No known injuries. She recently had a toe amputation surgery. She has been trying lidocaine patches, tramadol alternating ice and heat with little to no relief. Related Data Home Medications ?Medication ?Instructions ?Recorded ?Confirmed blood-glucose sensor (Dexcom G6 #6 ea 05/03/22 02/06/24 Sensor device) lidocaine 5 % topical patch 1 patch topical DIRECTED 05/25/22 02/06/24 (Lidoderm) tramadol 50 mg tablet 50 mg PO Q6H PRN PRN #30 tabs 08/28/22 02/06/24 omeprazole 40 mg capsule,delayed 40 mg PO DAILY #30 caps 11/09/22 02/06/24 release ondansetron 4 mg disintegrating 4 mg PO Q6H PRN #60 tabs 02/20/23 02/06/24 tablet duloxetine 40 mg capsule,delayed 40 mg PO DAILY 05/24/23 02/06/24 release gabapentin 300 mg tablet 300 - 900 mg PO DIRECTED 09/08/23 02/06/24 honey 80 % topical gel (MediHoney 1 applic topical DAILY #44 mL 10/18/23 02/06/24 (honey)) metoclopramide HCl 10 mg tablet 10 mg PO Q6H PRN 12/30/23 02/06/24 (Reglan) insulin aspart U-100 100 unit/mL 15 unit subcut TID 01/18/24 02/06/24 (3 mL) subcutaneous pen (Novolog FlexPen U-100 Insulin aspart) insulin glargine 100 unit/mL (3 50 unit subcut HS 01/18/24 02/06/24 mL) subcutaneous pen (Lantus Solostar U-100 Insulin) sulfamethoxazole 800 1 tab PO BID #28 tabs 01/18/24 02/06/24 mg-trimethoprim 160 mg tablet (Bactrim DS) cyclobenzaprine 10 mg tablet 10 mg PO TID PRN muscle spasm #7 02/06/24 tabs Previous Rx's ?Medication ?Instructions ?Recorded blood-glucose sensor (DexAtlas Spine G6 #6 ea 05/03/22 Sensor device) tramadol 50 mg tablet 50 mg PO Q6H PRN PRN #30 tabs 08/28/22 omeprazole 40 mg capsule,delayed 40 mg PO DAILY #30 caps 11/09/22 release ondansetron 4 mg disintegrating 4 mg PO Q6H PRN #60 tabs 02/20/23 tablet honey 80 % topical gel (MediHoney 1 applic topical DAILY #44 mL 10/18/23 (honey)) sulfamethoxazole 800 1 tab PO BID #28 tabs 01/18/24 mg-trimethoprim 160 mg tablet (Bactrim DS) cyclobenzaprine 10 mg tablet 10 mg PO TID PRN muscle spasm #7 02/06/24 tabs Allergies Allergy/AdvReac Type Severity Reaction Status Date / Time ibuprofen (From Advil) Allergy Severe Anaphylaxis Verified 02/06/24 13:02 pomegranate Allergy Severe Anaphylaxis Verified 02/06/24 13:02 citalopram AdvReac Severe Bodily harm Verified 02/06/24 13:02 General Stated Complaint: Nk/Back Pain ARNOLD: 3 Review of Systems All systems reviewed & are unremarkable except as noted in HPI and below ENT Ears, Nose, Mouth, and Throat: Reports neck pain Musculoskeletal Musculoskeletal: Reports neck pain, Denies numbness, Denies radiating pain into limb and Reports stiffness Neurologic Neurologic: Denies numbness Exam Const General: cooperative and healthy appearing Nutritional Appearance: average body habitus Orientation: alert, awake and oriented x3 Back/Spine/Pelvis Back: no CVA tenderness Cervical Spine: cervical muscular tenderness, pain with cervical ROM and No step off deformity Thoracic/Lumbar Spine: thoracic and lumbar spine normal to inspection Pelvis: no pain with anterior-posterior compression Course Vital Signs Vital signs: Vital Signs Temperature 36.2 C L 02/06/24 12:29 Pulse 120 H 02/06/24 12:29 Respiratory Rate 20 02/06/24 12:29 Blood Pressure 116/84 02/06/24 12:29 Temperature 36.2 C L 02/06/24 12:29 Temperature Source Temporal Artery Scan 02/06/24 12:29 Pulse 120 H 02/06/24 12:29 Respiratory Rate 20 02/06/24 12:29 Blood Pressure 116/84 02/06/24 12:29 Blood Pressure Position Sitting 02/06/24 12:29 Oxygen Delivery Method Room Air 02/06/24 12:29 Oxygen Flow Rate 0 02/06/24 12:29 Pain Level 10 02/06/24 12:29 Medical Decision Making Patient reports neck pain x 4 days. Reports pain with rotation. No known injuries. She recently had a toe amputation surgery. She has been trying lidocaine patches, tramadol alternating ice and heat with little to no relief. C-spine x-ray ordered, Flexeril. X-ray WNL, Will send home with Flexeril and physical therapy referral. This text was generated using [employer] dictation system, please disregard any oddities of phrase or misspellings. Medical Records Medical records reviewed: Yes I reviewed the patient's medical records. Imaging Data Radiologic Study: Imaging: X-Ray Radiologist's impression: FINDINGS: Four views. Fracture, listhesis, nor offset of the spinal laminar line. All disc spaces exhibit normal height. Odontoid intact. No significant facet arthropathy nor facet malalignment. No significant prevertebral soft tissue swelling. No incidental cervical ribs. IMPRESSION: No significant osseous findings in the cervical spine. Quality:SDOH Health Related Social Needs: No Data to Display PFSH All Active Problems (Updated 02/06/24 @ 13:51 by Katiana Adams NP) Acute torticollis (Acute) Phantom limb pain (Acute) Preoperative clearance (Acute) Contracture, plantar fascia (Acute) Neuropathic ulcer of left foot with fat layer exposed (Acute) Abnormal CT of the abdomen (Acute) Gallbladder sludge (Acute) Diabetic foot ulcer (Acute) Intractable nausea and vomiting (Acute) Ulcer of left foot with fat layer exposed (Acute) Osteomyelitis of left foot (Acute) DVT (deep venous thrombosis) (Chronic) Cellulitis of foot, left (Acute) Corns and callosities (Acute) Leukocytosis (Acute) Hypomagnesemia (Acute) Chronic nausea (Acute) Calf pain (Acute) Cellulitis of foot (Acute) Diabetic toe ulcer (Acute) Abscess (Acute) Vomiting (Acute) Gastroparesis (Chronic) IDDM (insulin dependent diabetes mellitus) (Chronic) Tobacco abuse (Acute) Cannabinoid hyperemesis syndrome (Acute) Upper GI bleeding (Acute) UTI (urinary tract infection) (Acute) Hypokalemia (Acute) Type 2 diabetes mellitus with diabetic neuropathy (Chronic) Ulcer of other part of foot (Acute) Amputation of toe of left foot (Acute) Infection of toe (Acute) Osteomyelitis (Acute) Medical History Ulcerative esophagitis Peripheral neuropathy History of osteomyelitis IBS (irritable bowel syndrome) History of kidney stones Chest pain r/t Anxiety Back pain Cellulitis of third toe, left Type 2 diabetes mellitus History of cellulitis toe Suicide attempt Anxiety and depression Diabetic neuropathy Diabetes Type 1, per patient she said she was told she had diabetes type 2. 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 Maternal Cousin Breast cancer Maternal Cousin Breast cancer Maternal Cousin Breast cancer Social History Smoking/Tobacco Use Status: Current every day Tobacco Type: cigarettes Smoking risk assessment performed?: Yes Alcohol Intake: current Alcohol Intake frequency: holidays/special occasions only Drug use: Daily Substance use type: marijuana Housing: house Do you feel safe at home: Yes Do you feel safe in your relationship?: Yes
[2024-02-06] MEDS: Cyclobenzaprine 10 MG TAB PO (13:00)
--- OUTSIDE RECORDS SUMMARY | 2024-02-06 13:29 | XMS_ITS | Encounter Summary ---
Author Organization [facility] [place] [address] Care Team Providers Care Dog Pound Attendant Name Role Phone Carrington Calderon MD Primary Care Provider [phone] Reason for Referral * Diagnostic Test (Routine) - New Request Specialty Diagnoses / Procedures Referred By Kit goode Referred To Contact Radiology Diagnoses Diabetic foot ulcer with osteomyelitis Procedures MRI Foot wwo Contrast Left Jackie Javier MD [facility] [place] [address] Referral ID Status Reason Start Date Expiration Date Visits Requested Visits Authorized [id number] New Request Specialty Service Requested 02/03/2024 08/03/2025 1 1 Reason for Visit * Consultation (Urgent) - Authorized Specialty Diagnoses / Procedures Referred By Kit goode Referred To Contact Infectious Diseases Diagnoses Osteomyelitis, unspecified Non-pressure chronic ulcer of other part of left foot with fat layer exposed Madelin Ojeda, [facility] [address] [place] [address] [facility] Infectious Dis [address] [place] [phone] Referral ID Status Reason Start Date Expiration Date Visits Requested Visits Authorized [id number] Authorized Consult, Test & Treat PCP Updated and/or Approved 01/11/2024 01/10/2025 12 12 Encounter Details Date Type Department Care Team (Latest Contact Info) Description 02/03/2024 10:30 AM EDT Office Visit [place] [address] Jackie Javier MD [facility] [place] [address] Diabetic foot ulcer with osteomyelitis (Primary Dx) Social History Tobacco Use Types Packs/Day Years Used Date Smoking Tobacco: Every Day Cigarettes Smokeless Tobacco: Never Tobacco Cessation:Ready to Q uit: Not Asked; Counseling Given: Not Answered Sex and Gender Information Value Date Recorded Sex Assigned at Not on file Gender Identity Not on file Sexual Orientation Not on file documented as of this encounter Last Filed Vital Signs Vital Sign Reading Time Taken Comments Blood Pressure 128/73 02/03/2024 10:47 AM EDT Pulse 114 02/03/2024 10:47 AM EDT Temperature 36.3 ??C (97.3 ??F) 02/03/2024 10:47 AM E DT Respiratory Rate 18 02/03/2024 10:47 AM EDT Oxygen Saturation 100% 02/03/2024 10:47 AM EDT Inhaled Oxygen Concentration - - Weight 81.6 kg (180 lb) 02/03/2024 10:47 AM EDT Height 162.6 cm (5' 4) 02/03/2024 10:47 AM EDT Body Mass Index 30.9 02/03/2024 10:47 AM EDT documented in this encounter Progress Notes * Jackie Javier MD - 02/03/2024 10:30 AM EDT Images from the original note were not included. Infectious Disease Clinic Visit CC: Residual osteomyelitis of L foot following TMA History of Present Illness: Cristy Luo is a 38 y.o. female with Hx of diabetes mellitus, c/b gastroparesis and diabetic neuropathy, who has experienced non-healing ulcers in her L foot since 2019. [facility] her first amputation, after which she says she was treated with of IV antibiotics via PICC line. In 2020, she transitioned her care to a podiatry practice closer to [facility], where she currently follows with Dr. Ojeda. She has undergo two other amputations since that time and states that she has received at least one other course of IV antibiotics via PICC line. She does not recall the name of this antibiotic but believes it may have been given every 6 or 8 hours. More recently, she has been prescribed a series of antibiotics given ongoing, non-healing wound, including doxycycline, amox-clav, and TMP-SMX. Ultimately, she was taken for a L sided TMA on 01/02/2024.Operative Cxs revealed growth of MSSA, with surgical pathology showing skin and soft tissue with ma rked inflammation and necrosis involving the resection margin. She has been on TMP-SMX DS twice daily since then, but there has been concerns with her ability to heal her TMA stump. While the wound is mostly closed, there is an open area on the lateral aspect, which is not a site that has historically been known to have osteomyelitis. There is talk that she may need further amputations if her infection cannot be cured. She states that she has previously undergone MRIs of her L foot, but has not had one for the past year. She has been working on glycemic control. Has not had her HbA1c checked in some time but is planning to have this checked soon. Had a previous L lower extremity DVT but does not believe she has ever undergone an arterial Duplex to assess this vasculature. Antimicrobials: TMP-SMX Review of Systems: As above, otherwise 14 point ROS negative Past Medical History: There is no problem list on file for this patient. Medications: blood-glucose meter (FREESTYLE) Kit blood sugar diagnostic strips Strip DULoxetine DR (Cymbalta) [address] capsule gabapentin (Neurontin) 300 mg capsule insulin glargine (Lantus) 100 unit/mL (3 mL) pen insulin lispro (humaLOG KwikPen) 100 unit/mL Insulin Pen levonorgestreL (Mirena) 21 mcg/24 hr (8 yrs) 52 mg IUD lidocaine (Lidoderm) 5% Adhesive Patch, Medicated omeprazole (PriLOSEC) [address] capsule traZODone (Desyrel) 50 mg tablet LORazepam (Ativan) 0.5 mg tablet metoclopramide (Reglan) 5 mg tablet ondansetron ODT (Zofran-ODT) 4 mg disintegrating tablet Allergies: Allergies Allergen Reactions Citalopram Other (See Comments) suicidal ideation, approx 2012 Ibuprofen Anaphylaxis and Hives Other Reaction(s): throat closes Pomegranate Anaphylaxis Family History: As above, otherwise non-contributory Social History: Social History Tobacco Use Smoking status: Every Day Current packs/day: 0.50 Types: Cigarettes Smokeless tobacco: Never Vaping Use Vaping status: Never Used Vitals: Last value Range last 24 hrs Temperature Temp: 36.3 ??C (97.3 ??F) Temp: [36.3 ??C (97.3 ??F)] Heart Rate Heart Rate: (!) 114 Heart Rate: [114] Blood Pressure BP: 128/73 BP: (128)/(73) Respiratory Rate Resp: 18 Resp: [18] SpO2 SpO2: 100 % SpO2: [100 %] Physical Exam: General: In no acute distress, sitting in chair comfortably, pleasant Neck: Supple, trachea midline Pulmonary: Breathing comfortably on room air, no audible wheezing Extremities: L sided TMA site with sutures still in place, with some areas of skin breakdown and drainage Skin: No rashes or lesions noted on visible skin Neuro: Alert and oriented, no focal deficits, moving all extremities spontaneously Psych: Normal mood and affect, linear thought process Laboratory: None available Microbiology: Impression & Plan: Cristy Luo is a 38 y.o. female with Hx of diabetes mellitus, c/b gastroparesis and diabetic neuropathy, who recently underwent L sided TMA on 01/02/24, with growth of MSSA on operative Cxs. Unfortunately, she has evidence of residual osteomyelitis on surgical pathology and has not healed up herwound optimally despite treatment with ~4 weeks of post-operative TMP-SMX. It is unclear what extent of bony infection she has remaining in her L foot. This would certainly impact the likelihood of cure of this infection. If she has only a small amount of osteomyelitis remaining, then I wonder if we would be able to cure with a more aggressive treatment regimen. However, if the extent of infection is great, I think it would be likely that an additional surgery is necessary. I think that obtaining an MRI of the L foot would provide useful information on this. Patientwould prefer to have this performed locally, and we can fax the order over for this. While we wait for the above information, we are faced with deciding on her next steps in terms of antibiotics. I do not necessarily want to subject her to the risk of PICC placement with IV cefazolinfor 6 additional weeks, as I am uncertain about the likelihood of curing this infection. She does not seem to be responding to oral antibiotics, though the dose is not optimized and the underlying issue may be with source control. All in all, I think it would be more reasonable on the risk/benefit scale to give her two doses of IV dalbavancin -- this will spare her the risks associated with a PICC line being in place and will also inconvenience of being on an IV antibiotic given every 8 hours at home. I have worked with our OPAT team to arrange for two IV dalbavancin infusions of 1.5 g to be given today and in ~1 week. I ordered baseline labs to be performed on her today, including CBC w/ diff, CMP, and CRP. Afterwards, I do not think that these need to be trended weekly, but they should be checked once in approximately 3 weeks and then in approximately 6 weeks. It is likely that she will have the middle set obtained locally, with the final set at our [id number] appointment. Lastly, I emphasized the importance of other measures, including excellent glycemic control. I alsowonder if she would benefit from an arterial Duplex U/S to assess blood flow to that foot and the need for vascular intervention. I spent a total of 70 minutes on the date of service on the [id number] encounter, chart review, clinical decision making, documentation, and coordination of care. RTC: 6 weeks Jackie Javier MD Staff Physician in Infectious Diseases * Jackie Javier MD - 02/03/2024 10:30 AM EDT OPAT INTAKE: Diagnosis: Osteomyelitis, Antibiotic Type: IV, Organism(s): MSSA, Antibiotic(s) being taken: Dalbavancin (1.5 g x1 on days #1 and #8) Day of infusion for Dalbavancin is: Tuesday. With a start date of 02/03/2024, and anticipated end date of 03/16/2024. Desired labs: CBC w/diff, CMP and CRP. Lab frequency: Other Other: Once the week of 02/19 Desired timing of end of therapy appointment: Week of: 03/12/2024. Other speciality appointments to coordinate with: No Dialysis patient?: No Imaging needed?: No Preferred provider for end of therapy visit: Dr. Javier documented in this encounter Plan of Treatment Upcoming Encounters Date Type Department Care Team (Late st Contact Info) Description 03/15/2024 1:30 PM EDT Office Visit [place] [address] Jackie Javier MD [facility] [address] [place] [address] Scheduled Orders Name Type Priority Associated Diagnoses Orde r Schedule MRI Foot wwo Contrast Left Imaging Routine Diabetic foot ulcer with osteomyelitis Expected: 02/03/2024, Expires: 08/04/2024 documented as of this encounter Results * (ABNORMAL) CRP, acute inflammation (02/03/2024 12:38 PM EDT) C-Reactive Protein 12.3(H) <=4.9 mg/L 02/03/2024 1:43 PM EDT [facility] Blood VENOUS BLOOD SPECIMEN / Unknown Venipuncture / Unknown 02/03/2024 12:38 PM EDT 02/03/2024 1:00 PM EDT Jackie Javier MD CHEMISTRY ORDERABLES [facility] [place] [address] * (ABNORMAL) Comprehensive metabolic panel (02/03/2024 12:38 PM EDT) Glucose 306(H) 65 - 199 mg/dL 02/03/2024 1:43 PM EDT [facility] Comment:Glucose Concentratio n >=200 mg/dL plus symptoms is consistent with Diabetes Mellitus. Blood Urea Nitrogen 9 8 - 18 mg/dL 02/03/2024 1:43 PM EDT [facility] Creatinine 0.56(L) 0.70 - 1.20 mg/dL 02/03/2024 1:43 PM [facility] Sodium 133(L) 135 - 145 mMol/L 02/03/2024 1:43 PM [facility] Potassium 4.4 3.5 - 5.0 mMol/L 02/03/2024 1:43 PM [facility] Chloride 96(L) 98 - 107 mMol/L 02/03/2024 1:43 PM [facility] Carbon Dioxide 25 22 - 31 mMol/L 02/03/2024 1:43 PM [facility] Anion Gap 12 5 - 15 mMol/L 02/03/2024 1:43 PM [facility] Calcium 9.8 8.5 - 10.5 mg/dL 02/03/2024 1:43 PM [facility] Protein, Total 7.5 6.1 - 8.0 g/dL 02/03/2024 1:43 PM [facility] Albumin 4.1 3.2 - 5.2 g/dL 02/03/2024 1:43 PM [facility] Aspartate Aminotransferase 12 <=30 unit/L 02/03/2024 1:43 PM [facility] Alanine Aminotransferase 13 0 - 30 unit/L 02/03/2024 1:43 PM [facility] Alkaline Phosphatase 138(H) 35 - 105 unit/L 02/03/2024 1:43 PM [facility] Bilirubin, Total <0.2 <=1.3 mg/dL 02/03/2024 1:43 PM [facility] Est Glomerular Filtration Rate - Female 120 mL/min/1. 73 m?? 02/03/2024 1:43 PM [facility] Comment: This patient's estimated GFR was calculated using the 2020 CKD-EPI equation. The estimated GFR can vary from the measured GFR by up to 30% in the absence of rapidly changing kidney function. Assessment of the estimated GFR is not appropriate when creatinine concentrations are rapidly changing. For clinical situations in which a more precise estimate of GFR is necessary, consider alternative methods of GFR estimation such as a 24-hour urine creatinine clearance. Assignment of CKD stage 1 - 5 for patients with an eGFR near the transition point between stages may be based on clinical assessment of muscle mass and symptoms in addition to eGFR. Link: eGFR Calculator [employer] Fasting Status No 02/03/2024 1:43 PM EDT [facility] Blood VENOUS BLOOD SPECIMEN / Unknown Venipuncture / Unknown 02/03/2024 12:38 PM EDT 02/03/2024 1:00 PM EDT Jackie Javier MD CHEMISTRY ORDERABLES [facility] [place] [address] * (ABNORMAL) CBC (with Diff) (02/03/2024 12:38 PM EDT) White Blood Cell 18.69(H) 4.00 - 9.50 x10(3)/mc L 02/03/2024 1:21 PM EDT [facility] Red Blood Cell 4.62 4.00 - 5.21 x10(6)/mc L 02/03/2024 1:21 PM EDT [facility] Hemoglobin 14.3 11.7 - 15.5 g/dL 02/03/2024 1:21 PM EDT [facility] Hematocrit 43.0 35.7 - 45.8 % 02/03/2024 1:21 PM EDT [facility] Mean Cell Volume 93.1 82.6 - 94.4 fL 02/03/2024 1:21 PM EDT [facility] Mean Cell Hemoglobin 31.0 27.1 - 32.0 pg 02/03/2024 1:21 PM EDT [facility] Mean Cell Hemoglobin Concentration 33.3 31.7 - 35.0 g/dL 02/03/2024 1:21 PM EDT [facility] Platelet 405(H) 145 - 357 x10(3)/mc L 02/03/2024 1:21 PM EDT [facility] Mean Platelet Volume 9.6 7.6 - 12.9 fL 02/03/2024 1:21 PM [facility] RDW Standard Deviation 43.9 37.0 - 46.0 fL 02/03/2024 1:21 PM [facility] RDW coefficient of variation 12.9 11.5 - 14.1 % 02/03/2024 1:21 PM [facility] NRBC% auto 0.0 % 02/03/2024 1:21 PM [facility] NRBC Absolute 0.00 0.00 - 0.00 x10(3)/mc L 02/03/2024 1:21 PM [facility] Neutrophil % 63.6 % 02/03/2024 1:21 PM [facility] Neutrophil Absolute (ANC) - Automated 11.90(H) 1.70 - 6.10 x10(3)/mc L 02/03/2024 1:21 PM [facility] Lymph % 26.2 % 02/03/2024 1:21 PM [facility] Lymph Absolute 4.90(H) 0.90 - 3.20 x10(3)/mc L 02/03/2024 1:21 PM [facility] Monocyte % 7.3 % 02/03/2024 1:21 PM [facility] Monocyte Absolute 1.36(H) 0.30 - 0.90 x10(3)/mc L 02/03/2024 1:21 PM [facility] Eos % 2.0 % 02/03/2024 1:21 PM [facility] Eos Absolute 0.37 0.00 - 0.40 x10(3)/mc L 02/03/2024 1:21 PM [facility] Basophil % 0.5 % 02/03/2024 1:21 PM [facility] Baso Absolute 0.09 0.00 - 0.10 x10(3)/mc L 02/03/2024 1:21 PM EDT [facility] Immature Gran % 0.4 % 1:21 PM EDT [facility] Immature Gran Absolute 0.07(H) 0.00 - 0.04 x10(3)/mc L 02/03/2024 1:21 PM EDT [facility] Blood VENOUS BLOOD SPECIMEN / Unknown Venipuncture / Unknown 02/03/2024 12:38 PM EDT 02/03/2024 1:00 PM EDT Jackie Javier MD HEMATOLOGY ORDERABLE S [facility] [place] [address] documented in this encounter Visit Diagnoses Diagnosis Diabetic foot ulcer with osteomyelitis- Primary Type II or unspecified type diabetes mellitus with other specified manifestations, not stated as uncontrolled documented in this encounter Care Teams Dog Pound Attendant Relationship Specialty Start Date End Date Carrington Calderon MD 1 [facility] [address] [place] [address] PCP - General Internal Medicine 01/16/24 documented as of this encounter
--- OUTSIDE RECORDS SUMMARY | 2024-02-06 13:29 | XMS_ITS | Encounter Summary ---
Author Organization [facility] [place] [address] Care Team Providers Care Geology Scientist Name Role Phone Carrington Calderon MD Primary Care Provider [phone] Encounter Details Date Type Department Care Team (Late st Contact Info) Description 02/03/2024 Orders [place] [address] Jackie Javier MD [facility] [place] [address] Social History Tobacco Use Types Packs/Day Years Used Date Smoking Tobacco: Every Day Cigarettes Smokeless Tobacco: Never Sex and Gender Information Value Date Recorded Sex Assigned at Not on file Gender Identity Not on file Sexual Orientation Not on file documented as of this encounter Plan of Treatment Upcoming Encounters Date Type Department Care Team (Late st Contact Info) Description 03/15/2024 1:30 PM EDT Office [place] [address] Jackie Javier MD [facility] [place] [address] documented as of this encounter Visit Diagnoses Not on filedocumented in this encounter Care Teams Geology Scientist Relationship Specialty Start Date End Date Carrington Calderon MD 1 [facility] [address] [place] [address] PCP - General Internal Medicine 01/16/24 documented as of this encounter
--- OUTSIDE RECORDS SUMMARY | 2024-02-06 13:29 | XMS_ITS | Clinical Summary ---
Author Organization [facility] Address [facility] [place] [address] Care Team Providers Care Mine Analyst Name Role Phone Carrington Calderon MD Primary Care Provider [phone] Allergies Active Allergy Reactions Criticality Noted Date Comments Citalopram Other (See Comments) High 09/03/2015 suicidal ideation, approx 2012 Ibuprofen Anaphylaxis,Hives High 02/16/2010 Other Reaction(s): throat closes Pomegranate Anaphylaxis High 01/02/2024 Medications Medication Sig Dispensed Refills Start Date End Date Status blood-glucose meter (FREESTYLE) Kit 1 each as needed. 01/06/2024 Ac tive blood sugar diagnostic strips Strip 1 each by Other route. 01/06/[address] (Cymbalta) [address] capsule Take 40 mg by mouth daily. Active gabapentin (Neurontin) 300 mg capsule TAKE 1 CAPSULE BY MOUTH IN THE MORNING AND TAKE 4 CAPSULES BY MOUTH AT BEDTIME Active insulin glargine (Lantus) 100 unit/mL (3 mL) pen Inject 40 Units subcutaneously nightly. 01/14/2022 Active insulin lispro (humaLOG KwikPen) 100 unit/mL Insulin Pen Inject 15-20 Units subcutaneously 3 times daily (with meals). 11/11/2023 Active levonorgestreL (Mirena) 21 mcg/24 hr (8 yrs) 52 mg IUD 1 each by Intrauterine route Continuous (Device). 08/05/2023 1 Active lidocaine (Lidoderm) 5% Adhesive Patch, Medicated Change 1 patch on the skin Daily @ 0600. 05/25/2022 Active LORazepam (Ativan) 0.5 mg tablet TAKE 1 TABLET BY MOUTH ONCE DAILY NEEDED FOR ANXIETY MAX DAILY DOSE 0.5MG(1 TABLET) Active metoclopramide (Reglan) 5 mg tablet Take 5 mg by mouth 2 times daily as needed. 01/24/2021 Active omeprazole (PriLOSEC) [address] capsule Take 40 mg by mouth daily. 11/09/2022 Active ondansetron ODT (Zofran-ODT) 4 mg disintegrating tablet Take by mouth every 8 hours as needed. 01/24/2021 Active traZODone (Desyrel) 50 mg tablet Take 50 mg by mouth nightly. Active sulfamethoxazole-tri methoprim DS (Bactrim DS) 800-160 mg tablet Take 2 tablets by mouth 2 times daily for 14 days. 56 tablet 02/03/2024 Active Active Problems Problem Noted Date Diagnosed Date Osteomyelitis 02/03/2024 Encounters Date Type Department Care Team Description 02/03/2024 12:12 PM EDT - 02/03/2024 11:59 PM EDT Hospital [place] [id number] Osteomyelitis, unspecified site, unspecified type; Diabetic foot ulcer with osteomyelitis Discharge Disposition: Home 02/03/2024 10:30 AM EDT Office [place] [id number] Jackie Javier MD Diabetic foot ulcer with osteomyelitis (Primary Dx) 02/03/2024 [place] [phone] Olive Anna, RN 02/03/2024 Notes [place] [address] Olive Anna, RN 02/03/2024 Orders [place] [address] Jackie Javier MD Diabetic foot ulcer with osteomyelitis 02/03/2024 Orders [place] [address] Jackie Javier MD 02/03/2024 Travel 01/19/2024 [place] [address] Unknown from Last 3 Months Social History Tobacco Use Types Packs/Day Years Used Date Smoking Tobacco: Every Day Cigarettes Smokeless Tobacco: Never Tobacco Cessation:Ready to Q uit: Not Asked; Counseling Given: Not Answered Sex and Gender Information Value Date Recorded Sex Assigned at Not on file Gender Identity Not on file Sexual Orientation Not on file Last Filed Vital Signs Vital Sign Reading Time Taken Comments Blood Pressure 97/76 02/03/2024 12:15 PM EDT Pulse 110 02/03/2024 12:15 PM EDT Temperature 36.3 ??C (97.3 ??F) 02/03/2024 12:15 PM E DT Respiratory Rate 17 02/03/2024 12:15 PM EDT Oxygen Saturation 98% 02/03/2024 12:15 PM EDT Inhaled Oxygen Concentration - - Weight 81.6 kg (180 lb) 02/03/2024 12:15 PM EDT Height 162.6 cm (5' 4) 02/03/2024 10:47 AM EDT Body Mass Index 30.9 02/03/2024 10:47 AM EDT Plan of Treatment Upcoming Encounters Date Type Department Care Team (Late st Contact Info) Description 03/15/2024 1:30 PM EDT Office [place] [address] Jackie Javier MD [facility] [address] [place] [address] Health Maintenance Due Date Last Done Comments Pneumococcal Vaccine: At-Ris k 5-64yrs (1 of 2 - PCV) 1991 HIV screen 2003 Hepatitis C Screening 2003 Lipid Screening 2003 Hepatitis B vaccine (0-59 yrs) (1) 2004 Tdap adult 2004 Tetanus vaccine 2004 HPV test 2015 PAP Smear 2015 Covid-19 Vaccine (4 - 2022- season) 2023 11/17/2022, 07/06/2021, 01/28/2021 Influenza (Flu) vaccine (1 o f 1 - Influenza standard series) 02/05/2024 Procedures Procedure Name Priority Date/Time Associated Diagnosis Comments CRP, ACUTE INFLAMMATION Routine 02/03/2024 12:38 PM EDT Diabetic foot ulcer with osteomyelitis COMPREHENSIVE METABOLIC PANEL Routine 02/03/2024 12:38 PM EDT Diabetic foot ulcer with osteomyelitis CBC (WITH DIFF) Routine 02/03/2024 12:38 PM EDT Diabetic foot ulcer with osteomyelitis SURGICAL PATHOLOGY SCAN 01/03/2024 12:00 AM EDT DIAGNOSTIC RADIOLOGY SCAN 01/02/2024 12:00 AM EDT from Last 3 Months Results * (ABNORMAL) CRP, acute inflammation (02/03/2024 12:38 PM EDT) C-Reactive Protein 12.3(H) <=4.9 mg/L 02/03/2024 1:43 PM EDT [facility] Blood VENOUS BLOOD SPECIMEN / Unknown Venipuncture / Unknown 02/03/2024 12:38 PM EDT 02/03/2024 1:00 PM EDT Jackie Javier MD CHEMISTRY ORDERABLES [facility] [place] [id number] * (ABNORMAL) CBC (with Diff) (02/03/2024 12:38 PM EDT) White Blood Cell 18.69(H) 4.00 - 9.50 x10(3)/mc L 02/03/2024 1:21 PM EDT [facility] Red Blood Cell 4.62 4.00 - 5.21 x10(6)/mc L 02/03/2024 1:21 PM EDT [facility] Hemoglobin 14.3 11.7 - 15.5 g/dL 02/03/2024 1:21 PM EDT [facility] Hematocrit 43.0 35.7 - 45.8 % 02/03/2024 1:21 PM [facility] Mean Cell Volume 93.1 82.6 - 94.4 fL 02/03/2024 1:21 PM [facility] Mean Cell Hemoglobin 31.0 27.1 - 32.0 pg 02/03/2024 1:21 PM [facility] Mean Cell Hemoglobin Concentration 33.3 31.7 - 35.0 g/dL 02/03/2024 1:21 PM [facility] Platelet 405(H) 145 - 357 x10(3)/mc L 02/03/2024 1: PM [facility] Mean Platelet Volume 9.6 7.6 - 12.9 fL 02/03/2024 1: PM [facility] RDW Standard Deviation 43.9 37.0 - 46.0 fL 02/03/2024 1: PM [facility] RDW coefficient of variation 12.9 11.5 - 14.1 % 02/03/2024 1: PM [facility] NRBC% auto 0.0 % 02/03/2024 1: PM [facility] NRBC Absolute 0.00 0.00 - 0.00 x10(3)/mc L 02/03/2024 1: PM [facility] Neutrophil % 63.6 % 02/03/2024 1:21 PM [facility] Neutrophil Absolute (ANC) - Automated 11.90(H) 1.70 - 6.10 x10(3)/mc L 02/03/2024 1: PM [facility] Lymph % 26.2 % 02/03/2024 1:21 PM [facility] Lymph Absolute 4.90(H) 0.90 - 3.20 x10(3)/mc L 02/03/2024 1: PM [facility] Monocyte % 7.3 % 02/03/2024 1:21 PM [facility] Monocyte Absolute 1.36(H) 0.30 - 0.90 x10(3)/mc L 02/03/2024 1:21 PM EDT [facility] Eos % 2.0 % 02/03/2024 1:21 PM EDT [facility] Eos Absolute 0.37 0.00 - 0.40 x10(3)/mc L 02/03/2024 1:21 PM EDT [facility] Basophil % 0.5 % 02/03/2024 1:21 PM EDT [facility] Baso Absolute 0.09 0.00 - 0.10 x10(3)/mc L 02/03/2024 1:21 PM EDT [facility] Immature Gran % 0.4 % 1:21 PM EDT [facility] Immature Gran Absolute 0.07(H) 0.00 - 0.04 x10(3)/mc L 02/03/2024 1:21 PM EDT [facility] Blood VENOUS BLOOD SPECIMEN / Unknown Venipuncture / Unknown 02/03/2024 12:38 PM EDT 02/03/2024 1:00 PM EDT Jackie Javier MD HEMATOLOGY ORDERABLE S [facility] [place] [address] * (ABNORMAL) Comprehensive metabolic panel (02/03/2024 12:38 PM EDT) Glucose 306(H) 65 - 199 mg/dL 02/03/2024 1:43 PM EDT [facility] Comment:Glucose Concentratio n >=200 mg/dL plus symptoms is consistent with Diabetes Mellitus. Blood Urea Nitrogen 9 8 - 18 mg/dL 02/03/2024 1:43 PM EDT [facility] Creatinine 0.56(L) 0.70 - 1.20 mg/dL 02/03/2024 1:43 PM EDT [facility] Sodium 133(L) 135 - 145 mMol/L 02/03/2024 1:43 PM [facility] Potassium 4.4 3.5 - 5.0 mMol/L 02/03/2024 1:43 PM [facility] Chloride 96(L) 98 - 107 mMol/L 02/03/2024 1:43 PM [facility] Carbon Dioxide 25 22 - 31 mMol/L 02/03/2024 1:43 PM [facility] Anion Gap 12 5 - 15 mMol/L 02/03/2024 1:43 PM [facility] Calcium 9.8 8.5 - 10.5 mg/dL 02/03/2024 1:43 PM [facility] Protein, Total 7.5 6.1 - 8.0 g/dL 02/03/2024 1:43 PM [facility] Albumin 4.1 3.2 - 5.2 g/dL 02/03/2024 1:43 PM [facility] Aspartate Aminotransferase 12 <=30 unit/L 02/03/2024 1:43 PM [facility] Alanine Aminotransferase 13 0 - 30 unit/L 02/03/2024 1:43 PM [facility] Alkaline Phosphatase 138(H) 35 - 105 unit/L 02/03/2024 1:43 PM [facility] Bilirubin, Total <0.2 <=1.3 mg/dL 02/03/2024 1:43 PM [facility] Est Glomerular Filtration Rate - Female 120 mL/min/1. 73 m?? 02/03/2024 1:43 PM [facility] Comment: This patient's estimated GFR [...] Fasting Status No 02/03/2024 1:43 PM EDT [facility] Blood VENOUS BLOOD SPECIMEN / Unknown Venipuncture / Unknown 02/03/2024 12:38 PM EDT 02/03/2024 1:00 PM EDT Jackie Javier MD CHEMISTRY ORDERABLES [facility] [place] [address] * Scan Doc: Surgical Pathology (01/03/2024 12:00 AM EDT) Narrative 01/03/2024 12:00 AM EDT Ordered by an unspecified provider. Scanning Provider MEDIA MGR SCAN EXT O RDR/RSLT * Scan Doc: Diagnostic Radiology (01/02/2024 12:00 AM EDT) Anatomical Region Laterality Modality Other Narrative 01/02/2024 12:00 AM EDT Ordered by an unspecified provider. Scanning Provider MEDIA MGR SCAN EXT O RDR/RSLT from Last 3 Months Care Teams Mine Analyst Relationship Specialty Start Date End Date Carrington Calderon MD 1 [facility] [address] [place] [address] PCP - General Internal Medicine 01/16/24
--- OUTSIDE RECORDS SUMMARY | 2024-02-06 13:29 | XMS_ITS | Encounter Summary ---
Author Organization [facility] Address [facility] [place] [address] Care Team Providers Care Cloth Seconds Sorter Name Role Phone Carrington Calderon MD Primary Care Provider [phone] Reason for Visit * Treatment/Therapy Plan Authorization (Routine) - Pending Review Specialty Diagnoses / Procedures Referred By Contac t Referred To Contact Diagnoses Osteomyelitis, unspecified site, unspecified type Procedures TC DALBAVANCIN, 5 MG, INJECTION Jackie Javier MD [facility] [place] [address] [facility] Med Infusion [address] [place] [id number] Referral ID Status Reason Start Date Expiration Date V isits Requested Visits Authorized [id number] Pending Review 02/03/2024 02/02/2025 99 99 Encounter Details Date Type Department Care Team (Latest Contact Info) Description 02/03/2024 12:12 PM EDT - 02/03/2024 11:59 PM EDT Hospital [place] [address] Osteomyelitis, unspecified site, unspecified type; Diabetic foot ulcer with osteomyelitis Discharge Disposition: Home Social History Tobacco Use Types Packs/Day Years [...] (180 lb) 02/03/2024 12:15 PM EDT Height - - Body Mass Index 30.9 02/03/2024 10:47 AM EDT documented in this encounter Medications at Time of Discharge Medication Sig Dispensed Refills Start Date End Date blood-glucose meter (FREESTYLE) Kit 1 each as needed. 01/06/2024 blood sugar diagnostic strips Strip 1 each by Other route. 01/06/[address] (Cymbalta) [address] capsule Take 40 mg by mouth daily. gabapentin (Neurontin) 300 mg capsule TAKE 1 CAPSULE BY MOUTH IN THE MORNING AND TAKE 4 CAPSULES BY MOUTH AT BEDTIME insulin glargine (Lantus) 100 unit/mL (3 mL) pen Inject 40 Units subcutaneously nightly. 01/14/2022 insulin lispro (humaLOG KwikPen) 100 unit/mL Insulin Pen Inject 15-20 Units subcutaneously 3 times daily (with meals). 11/11/2023 levonorgestreL (Mirena) 21 mcg/24 hr (8 yrs) 52 mg IUD 1 each by Intrauterine route Continuous (Device). 08/05/2023 08/03/2030 lidocaine (Lidoderm) 5% Adhesive Patch, Medicated Change 1 patch on the skin Daily @ 0600. 05/25/2022 LORazepam (Ativan) 0.5 mg tablet TAKE 1 TABLET BY MOUTH ONCE DAILY NEEDED FOR ANXIETY MAX DAILY DOSE 0.5MG(1 TABLET) metoclopramide (Reglan) 5 mg tablet Take 5 mg by mouth 2 times daily as needed. 01/24/2021 omeprazole (PriLOSEC) [address] capsule Take 40 mg by mouth daily. 11/09/2022 ondansetron ODT (Zofran-ODT) 4 mg disintegrating tablet Take by mouth every 8 hours as needed. 01/24/2021 traZODone (Desyrel) 50 mg tablet Take 50 mg by mouth nightly. sulfamethoxazole-trime thoprim DS (Bactrim DS) 800-160 mg tablet Take 2 tablets by mouth 2 times daily for 14 days. 56 tablet 02/03/2024 02/17/2024 documented as of this encounter Progress Notes * Siobhan Rico RN - 02/03/2024 1:13 PM EDT INFUSION THERAPY ADMINISTRATION NOTES DIAGNOSIS: 1. Osteomyelitis, unspecified site, unspecified type 2. Diabetic foot ulcer with osteomyelitis REASON FOR VISIT: Antibiotic Therapy Allergies Allergen Reactions Citalopram Other (See Comments) suicidal ideation, approx 2012 Ibuprofen Anaphylaxis and Hives Other Reaction(s): throat closes Pomegranate Anaphylaxis SUBJECTIVE: Offers no complaints. OBJECTIVE: Cristy arrives today for a single infusion dose of Dalbavancin. VITAL SIGNS: BP 97/76 (BP Location (NBP): Left arm, Patient Position: Sitting, BP Cuff Sizes: Large Adult (32-43cm)) Pulse (!) 110 Temp 36.3 ??C (97.3 ??F) (Temporal) Resp 17 Wt 81.6 kg (180 lb) SpO2 98% BMI 30.90 kg/m?? IF PAIN >5, INTERVENTION AND EFFECTIVENESS: NA LAB DATA: Recent Results (from the past 12 hour(s)) CBC (with Diff) Result Value White Blood Cell 18.69 (H) Red Blood Cell 4.62 Hemoglobin 14.3 Hematocrit 43.0 Mean Cell Volume 93.1 Mean Cell Hemoglobin 31.0 Mean Cell Hemoglobin Concentration 33.3 Platelet 405 (H) Mean Platelet Volume 9.6 RDW Standard Deviation 43.9 RDW coefficient of variation 12.9 NRBC% auto 0.0 NRBC Absolute 0.00 Neutrophil % 63.6 Neutrophil Absolute 11.90 (H) Lymph % 26.2 Lymph Absolute 4.90 (H) Monocyte % 7.3 Monocyte Absolute 1.36 (H) Eos % 2.0 Eos Absolute 0.37 Basophil % 0.5 Baso Absolute 0.09 Immature Gran % 0.4 Immature Gran Absolute 0.07 (H) Comprehensive metabolic panel Result Value Glucose 306 (H) Blood Urea Nitrogen 9 Creatinine 0.56 (L) Sodium 133 (L) Potassium 4.4 Chloride 96 (L) Carbon Dioxide 25 Anion Gap 12 Calcium 9.8 Protein, Total 7.5 Albumin 4.1 Aspartate Aminotransferase 12 Alanine Aminotransferase 13 Alkaline Phosphatase 138 (H) Bilirubin, Total <0.2 Est Glomerular Filtration Rate - Female 120 Fasting Status No CRP, acute inflammation Result Value C-Reactive Protein 12.3 (H) IV ACCESS: PIV 02/03/24 1235 22 gauge;1 in length median cubital vein (antecubital fossa), left (Active) HYDRATION: N/A ANTIEMETICS/PREMEDS: N/A Patient identification and orders checked against actual dose given at bedside by Siobhan Rico RN MEDICATION/TREATMENT: Dalbavancin 1500 mg IV Administration times: See MAR REACTIONS None. ASSESSMENT: Awake and alert - tolerated treatment well. PLAN: Return to clinic as scheduled. documented in this encounter Plan of Treatment Upcoming Encounters Date Type Department Care Team (Late st Contact Info) Description 03/15/2024 1:30 PM EDT Office [place] [address] Jackie Javier MD [facility] [place] [address] documented as of this encounter Procedures Procedure Name Priority Date/Time Associated Diagnosis Comments CRP, ACUTE INFLAMMATION Routine 02/03/2024 12:38 PM EDT Diabetic foot ulcer with osteomyelitis CBC (WITH DIFF) Routine 02/03/2024 12:38 PM EDT Diabetic foot ulcer with osteomyelitis COMPREHENSIVE METABOLIC PANEL Routine 02/03/2024 12:38 PM EDT Diabetic foot ulcer with osteomyelitis documented in this encounter Results * (ABNORMAL) CRP, acute inflammation (02/03/2024 12:38 PM EDT) C-Reactive Protein 12.3(H) <=4.9 mg/L 02/03/2024 1:43 PM EDT [facility] Blood VENOUS BLOOD SPECIMEN / Unknown Venipuncture / Unknown 02/03/2024 12:38 PM EDT 02/03/2024 1:00 PM EDT Jackie Javier MD CHEMISTRY ORDERABLES [facility] [place] [address] * (ABNORMAL) Comprehensive metabolic panel (02/03/2024 12:38 PM EDT) Glucose 306(H) 65 - 199 mg/dL 02/03/2024 1:43 PM EDT [facility] Comment:Glucose Concentratio n >=200 mg/dL plus symptoms is consistent with Diabetes Mellitus. Blood Urea Nitrogen 9 8 - 18 mg/dL 02/03/2024 1:43 PM EDT [facility] Creatinine 0.56(L) 0.70 - 1.20 mg/dL 02/03/2024 1:43 PM EDT [facility] Sodium 133(L) 135 - 145 mMol/L 02/03/2024 1:43 PM EDT [facility] Potassium 4.4 3.5 - 5.0 mMol/L 02/03/2024 1:43 PM EDT [facility] Chloride 96(L) 98 - 107 mMol/L 02/03/2024 1:43 PM EDT [facility] Carbon Dioxide 25 22 - 31 mMol/L 02/03/2024 1:43 PM EDT [facility] Anion Gap 12 5 - 15 mMol/L 02/03/2024 1:43 PM EDT [facility] Calcium 9.8 8.5 - 10.5 mg/dL 02/03/2024 1:43 PM EDT [facility] Protein, Total 7.5 6.1 - 8.0 g/dL 02/03/2024 1:43 PM EDT [facility] Albumin 4.1 3.2 - 5.2 g/dL 02/03/2024 1:43 PM EDT [facility] Aspartate Aminotransferase 12 <=30 unit/L 02/03/2024 1:43 PM EDT [facility] Alanine Aminotransferase 13 0 - 30 unit/L 02/03/2024 1:43 PM EDT [facility] Alkaline Phosphatase 138(H) 35 - 105 unit/L 02/03/2024 1:43 PM EDT [facility] Bilirubin, Total <0.2 <=1.3 mg/dL 02/03/2024 1:43 PM EDT [facility] Est Glomerular Filtration Rate - Female 120 mL/min/1. 73 m?? 02/03/2024 1:43 PM EDT [facility] Comment: This patient's estimated [...] Fasting Status No 02/03/2024 1:43 PM EDT [facility] Blood VENOUS BLOOD SPECIMEN / Unknown Venipuncture / Unknown 02/03/2024 12:38 PM EDT 02/03/2024 1:00 PM EDT Jackie Javier MD CHEMISTRY ORDERABLES [facility] [place] [address] * (ABNORMAL) CBC (with Diff) (02/03/2024 12:38 PM EDT) White Blood Cell 18.69(H) 4.00 - 9.50 x10(3)/mc L 02/03/2024 1:21 PM EDT [facility] Red Blood Cell 4.62 4.00 - 5.21 x10(6)/mc L 02/03/2024 1:21 PM EDT [facility] Hemoglobin 14.3 11.7 - 15.5 g/dL 02/03/2024 1:21 PM [facility] Hematocrit 43.0 35.7 - 45.8 % 02/03/2024 1:21 PM [facility] Mean Cell Volume 93.1 82.6 - 94.4 fL 02/03/2024 1:21 PM [facility] Mean Cell Hemoglobin 31.0 27.1 - 32.0 pg 02/03/2024 1:21 PM [facility] Mean Cell Hemoglobin Concentration 33.3 31.7 - 35.0 g/dL 02/03/2024 1:21 PM [facility] Platelet 405(H) 145 - 357 x10(3)/mc L 02/03/2024 1:21 PM [facility] Mean Platelet Volume 9.6 7.6 - 12.9 fL 02/03/2024 1: PM [facility] RDW Standard Deviation 43.9 37.0 - 46.0 fL 02/03/2024 1: PM [facility] RDW coefficient of variation 12.9 11.5 - 14.1 % 02/03/2024 1: PM [facility] NRBC% auto 0.0 % 02/03/2024 1: PM [facility] NRBC Absolute 0.00 0.00 - 0.00 x10(3)/mc L 02/03/2024 1: PM [facility] Neutrophil % 63.6 % 02/03/2024 1:21 PM [facility] Neutrophil Absolute (ANC) - Automated 11.90(H) 1.70 - 6.10 x10(3)/mc L 02/03/2024 1: PM [facility] Lymph % 26.2 % 02/03/2024 1:21 PM [facility] Lymph Absolute 4.90(H) 0.90 - 3.20 x10(3)/mc L 02/03/2024 1:21 PM EDT [facility] Monocyte % 7.3 % 02/03/2024 1:21 PM EDT [facility] Monocyte Absolute 1.36(H) 0.30 - 0.90 x10(3)/mc L 02/03/2024 1:21 PM EDT [facility] Eos % 2.0 % 02/03/2024 1:21 PM EDT [facility] Eos Absolute 0.37 0.00 - 0.40 x10(3)/mc L 02/03/2024 1:21 PM EDT [facility] Basophil % 0.5 % 02/03/2024 1:21 PM EDT [facility] Baso Absolute 0.09 0.00 - 0.10 x10(3)/mc L 02/03/2024 1:21 PM EDT [facility] Immature Gran % 0.4 % 1:21 PM EDT [facility] Immature Gran Absolute 0.07(H) 0.00 - 0.04 x10(3)/mc L 02/03/2024 1:21 PM EDT [facility] Blood VENOUS BLOOD SPECIMEN / Unknown Venipuncture / Unknown 02/03/2024 12:38 PM EDT 02/03/2024 1:00 PM EDT Jackie Javier MD HEMATOLOGY ORDERABLE S Performing Organization Address City/State/[facility] Co de Phone Number [facility] [place] [address] documented in this encounter Visit Diagnoses Diagnosis Osteomyelitis, unspecified site, unspecified type Diabetic foot ulcer with osteomyelitis Type II or unspecified type diabetes mellitus with other specified manifestations, not stated as uncontrolled documented in this encounter Administered Medications Inactive Administered Medications - up to 3 most recent administrations Medication Order MAR Action Action Date Dose Rate Site dalbavancin (Dalvance) 1,500 mg in dextrose 5% 325 mL infusion 1,500 mg, Intravenous, WEEKLY, 2 doses, First dose on Tue02/03/24 at 1315, Last dose on Tue02/10/24 at 0900, Administer over 30 Minutes, Flush line before and after administration with D5W, Indication for (Active or Suspected): Bone/Joint, Has Prior Authorization been obtained? If No, please comment. No New Bag 02/03/2024 1:25 PM EDT 1,500 mg 650 mL/hr documented in this encounter Care Teams Cloth Seconds Sorter Relationship Specialty Start Date End Date Carrington Calderon MD 1 [facility] [address] [place] [address] PCP - General Internal Medicine 01/16/24 documented as of this encounter
--- OUTSIDE RECORDS SUMMARY | 2024-02-06 13:29 | XMS_ITS | Encounter Summary ---
Author Organization [facility] [place] [address] Care Team Providers Care Filter Washer And Presser Name Role Phone Carrington Calderon MD Primary Care Provider [phone] Encounter Details Date Type Department Care Team (Late st Contact Info) Description 02/03/2024 Notes [place] [phone] Olive Anna, RN Social History Tobacco Use Types Packs/Day Years Used Date Smoking Tobacco: Every Day Cigarettes Smokeless Tobacco: Never Sex and Gender Information Value Date Recorded Sex Assigned at Not on file Gender Identity Not on file Sexual Orientation Not on file documented as of this encounter Progress Notes * Olive Anna, RN - 02/03/2024 4:20 PM EDT Infectious Disease Department Faxed to [facility] on 02/03/24 at 1619 Fax confirmation on 02/03/24 at 1620 Document(s) faxed: Standing labs MRI order documented in this encounter Plan of Treatment Upcoming Encounters Date Type Department Care Team (Late st Contact Info) Description 03/15/2024 1:30 PM EDT Office [place] [address] Jackie Javier MD [facility] [place] [address] documented as of this encounter Visit Diagnoses Not on filedocumented in this encounter Care Teams Filter Washer And Presser Relationship Specialty Start Date End Date Carrington Calderon MD 1 [facility] Level 1 [place] [phone] PCP - General Internal Medicine 01/16/24 documented as of this encounter
--- OUTSIDE RECORDS SUMMARY | 2024-02-06 13:29 | XMS_ITS | Encounter Summary ---
Author Organization [facility] [place] [address] Care Team Providers Care Medication Specialist Name Role Phone Carrington Calderon MD Primary Care Provider [phone] Encounter Details Date Type Department Care Team (Late st Contact Info) Description 01/19/2024 Telephone [place] [phone] Unknown None Social History Tobacco Use Types Packs/Day Years Used Date Smoking Tobacco: Never Assessed Sex and Gender Information Value Date Recorded Sex Assigned at Not on file Gender Identity Not on file Sexual Orientation Not on file documented as of this encounter Miscellaneous Notes * Telephone Encounter - Jenny Otoole - 01/19/2024 12:28 PM EDT Clinic Coverage - Reason for Call: Establish Care Referral in eDH?: Yes Reason for referral: Osteomyelitis Advised Caller may take 5-7 Business day to review referral: Yes DO NOT SEND FOR SYMPTOMS, REFER PATIENT TO REFERRING PROVIDER! Caller Name (If other than patient): Self Relationship to Patient (if other than self): Patient Callback number: [phone] Best time you are available: Any Route Per Clinic Coverage Page documented in this encounter Plan of Treatment Upcoming Encounters Date Type Department Care Team (Late st Contact Info) Description 03/15/2024 1:30 PM EDT Office [place] [phone] Jackie Javier MD [facility] [address] [place] [address] documented as of this encounter Visit Diagnoses Not on filedocumented in this encounter Care Teams Medication Specialist Relationship Specialty Start Date End Date Carrington Calderon MD 1 [facility] 1 [place] [phone] PCP - General Internal Medicine 01/16/24 documented as of this encounter
--- OUTSIDE RECORDS SUMMARY | 2024-02-06 13:29 | XMS_ITS | Encounter Summary ---
Author Organization [facility] [place] [address] Care Team Providers Care Supply Chain Engineer Name Role Phone Carrington Calderon MD Primary Care Provider [phone] Encounter Details Date Type Department Care Team (Late st Contact Info) Description 02/03/2024 Telephone [place] [address] Olive Anna, RN Social History Tobacco Use [...] PM EDT Office [place] [address] Jackie Javier MD [facility] [place] [address] documented as of this encounter Visit Diagnoses Not on filedocumented in this encounter Care Teams Supply Chain Engineer Relationship Specialty Start Date End Date Carrington Calderon MD 1 [facility] 1 [place] [phone] PCP - General Internal Medicine 01/16/24 documented as of this encounter
--- OUTSIDE RECORDS SUMMARY | 2024-02-06 13:29 | XMS_ITS | Encounter Summary ---
Author Organization [facility] [place] [address] Care Team Providers Care Recreational Resort Manager Name Role Phone Carrington Calderon MD Primary Care Provider [phone] Encounter Details Date Type Department Care Team (Late st Contact Info) Description 02/03/2024 Orders [place] [phone] Jackie Javier MD [facility] [place] [address] Diabetic foot ulcer with osteomyelitis Social History Tobacco Use Types Packs/Day Years [...] PM EDT Office [place] [phone] Jackie Javier MD [facility] [place] [address] Scheduled Orders Name Type Priority Associated Diagnoses Orde r Schedule CBC (with Diff) Lab Routine Diabetic foot ulcer with osteomyelitis Once a week for 6 Occurrences starting 02/03/2024 until 02/02/2025 CRP, acute inflammation Lab Routine Diabetic foot ulcer with osteomyelitis Once a week for 6 Occurrences starting 02/03/2024 until 02/02/2025 Comprehensive metabolic panel Non-fasting Lab Routine Diabetic foot ulcer with osteomyelitis Once a week for 6 Occurrences starting 02/03/2024 until 02/02/2025 documented as of this encounter Visit Diagnoses Diagnosis Diabetic foot ulcer with osteomyelitis Type II or unspecified type diabetes mellitus with other specified manifestations, not stated as uncontrolled documented in this encounter Care Teams Recreational Resort Manager Relationship Specialty Start Date End Date Carrington Calderon MD 1 [facility] 1 [place] [address] PCP - General Internal Medicine 01/16/24 documented as of this encounter
--- OUTSIDE RECORDS SUMMARY | 2024-02-06 13:29 | XMS_ITS | Encounter Summary ---
Author Organization [facility] [address] Care Team Providers Care Head Grinder Name Role Phone Carrington Calderon MD Primary Care Provider [phone] Encounter Details Date Type Department Care Team (Latest Contact Info) Description 02/03/2024 Travel Social History Tobacco Use Types Packs/Day [...] PM EDT Office [place] [address] Jackie Javier MD [facility] [place] [address] documented as of this encounter Visit Diagnoses Not on filedocumented in this encounter Care Teams Head Grinder Relationship Specialty Start Date End Date Carrington Calderon MD [address] [place] [address] Level 1 [place] [address] PCP - General Internal Medicine 01/16/24 documented as of this encounter
--- OUTSIDE RECORDS SUMMARY | 2024-02-06 13:30 | XMS_ITS | Encounter Summary ---
Author Organization [facility] Address [address] [place] [address] Care Team Providers Care Certified Pest Control Technician Name Role Phone Carrington Calderon MD Primary Care Provi anders Abigail Díaz Unavailable Reason for Visit * Reason Comments Coordination Of Care Encounter Details Date Type Department Care Team (Late st Contact Info) Description 11/18/2023 Community Health Team [facility] Adult Primary Care - [place] 1 [place], [place] [address] Care Management, [facility] Social History Tobacco Use Types Packs/Day Years Used Date Smoking Tobacco: Every Day Cigarettes 0.5 13.2 Started: 11/10/2010 Smokeless Tobacco: Never Comments:06/13/20 actively try ing to quit about 5-8 cigs/day Alcohol Use Standard Drinks/Week Comments Yes 0 (1 standard drink = 0.6 oz pur e alcohol) rarely C Utilities Answer Date Recorded In the past 12 months has [employer], gas, oil, or water [employer] threatened to shut off services in your [...] any time in the past 12 m [facility], were you homeless or living in [...] * Nery Stokes - 11/18/2023 0945 EDT [facility] Director Of Materials Management Date: 11/18/23 Referred by: Abigail Williamson PCP: Carrington Calderon Encounter type: Phone Reason for Referral: [employer], Financial Notes: This Director Of Materials Management called Stella at scheduled date/time and left a voicemail offering to reschedule with direct contact information. Plan / Action Items: This Director Of Materials Management sent a [employer] message offering to reschedule. Pending reply from Stella. If no response by November 29, this Director Of Materials Management will place a call toLiz informing if no reply by 12/16/23, the referral will be closed. Assistance is available with a new referral if the referral is closed. Nery Stokes 11/18/23 9:45 documented in this encounter Plan of Treatment Upcoming Encounters Date Type Department Care Team (Late st Contact Info) Description 02/21/2024 9:45 EDT Office Visit [facility] Adult Primary Care - [address] [phone] Carrington Calderon MD [address] [phone] 02/27/2024 8:30 EDT Telemedicine [facility] Sleep Program - [address] 112371 Sayra Dwight [address] [place] [phone] 02/29/2024 10:30 EDT Appointment [facility] Radiology Nuclear Medicine and PET [address] [address] 02/29/2024 14:30 EDT Appointment [facility] Radiology Nuclear Medicine and PET [address] [address] 03/01/2024 8:00 EDT Appointment [facility] Radiology Nuclear Medicine and PET [address] [phone] 03/01/2024 9:30 EDT Appointment [facility] Radiology Nuclear Medicine and PET [address] 159921 documented as of this encounter Visit Diagnoses Not on filedocumented in this encounter Care Teams Certified Pest Control Technician Relationship Specialty Start Date End Date Carrington Calderon MD [address] [place] [phone] PCP - General Internal Medicine - Primary Care 12/09/20 Abigail Díaz Ingot Caster 04/21/23 01/03/24 documented as of this encounter
--- OUTSIDE RECORDS SUMMARY | 2024-02-06 13:30 | XMS_ITS | Encounter Summary ---
Author Organization [facility] Address [address] [place] [address] Care Team Providers Care Airframe Design Engineer Name Role Phone Carrington Calderon MD Primary Care Provi anders Abigail Díaz Unavailable Carmelo Hendrickson Unavailable Unavailable Encounter Details Date Type Department Care Team (Late st Contact Info) Description 12/09/2023 Orders Only [facility] Radiology - Main [place] [address] [place], [place] [phone] Teresita Fitzpatrick MD [address] [place] [address] Social History Tobacco Use Types Packs/Day Years Used Date Smoking Tobacco: Every Day Cigarettes 0.5 13.2 Started: 11/10/2010 Smokeless Tobacco: Never Comments:06/13/20 actively try ing to quit about 5-8 cigs/day Alcohol Use Standard Drinks/Week Comments Yes 0 (1 standard drink = 0.6 oz pur e alcohol) rarely C Utilities Answer Date Recorded In the past 12 months has [email or web address], gas, oil, or water company threatened to [...] the past 12 m [facility], were you homeless or living [...] [facility] Primary Care - [address] [phone] Carrington Calderon MD [address] [address] 02/27/2024 8:30 EDT Telemedicine [facility] Sleep Program - [address] 618141 Dwight Colbert [address] [place], [place] [address] 02/29/2024 10:30 EDT [facility] Radiology Nuclear Medicine and PET - [address] [address] 02/29/2024 14:30 EDT Appointment [facility] Radiology Nuclear Medicine and PET - [address] [address] 03/01/2024 8:00 EDT Appointment [facility] Radiology Nuclear Medicine and PET - [address] [address] 03/01/2024 9:30 EDT Appointment [facility] Radiology Nuclear Medicine and PET - [address] [address] documented as of this encounter Visit Diagnoses Not on filedocumented in this encounter Care Teams Airframe Design Engineer Relationship Specialty Start Date End Date Carrington Calderon MD 1 [facility] 1 [place] [address] PCP - General Internal Medicine - Primary Care 12/09/20 Abigail Díaz Recordings Librarian 04/21/23 01/03/24 Carmelo Hendrickson Coordinator 12/01/23 documented as of this encounter
--- OUTSIDE RECORDS SUMMARY | 2024-02-06 13:30 | XMS_ITS | Encounter Summary ---
Author Organization [facility] Address [address] [place] [address] Care Team Providers Care Lean Manufacturing Leader Name Role Phone Carrington Calderon MD Primary Care Provi anders Carmelo Hendrickson Unavailable Unavailable Abigail Díaz Unavailable [phone] Reason for Visit * Reason Onset Date Comments Torticollis 02/06/2024 Encounter Details Date Type Department Care Team (Late st Contact Info) Description 02/06/[address] [facility] Adult Primary Care - [place] 2 [place] [address] Cedric Yoon MD 2 [place] [address] Torticollis Social History Tobacco Use Types Packs/Day Years Used Date Smoking Tobacco: Every Day Cigarettes 0.5 13.2 Started: 11/10/2010 Smokeless Tobacco: Never Comments:06/13/20 actively try ing to quit about 5-8 cigs/day Alcohol Use Standard Drinks/Week Comments Yes 0 (1 standard drink = 0.6 oz pur e alcohol) rarely [facility] Utilities Answer Date Recorded In the past [...] encounter Miscellaneous Notes * Telephone Encounter - Cedric Yoon MD - 02/06/2024 1059 EDT After Hours call: Reportedly Stella reached out to this on-call provider due to a complaint of being unable to move her neck for three days. PAS was unable to connect us as the patient did not answer after calling the provided number. Relayed to PAS that for this acute issue the patient should present to the ED for further evaluation. PAS to leave a voicemail to patient relaying these instructions and to call back if needed. documented in this encounter Plan of Treatment Upcoming Encounters Date Type Department Care Team (Late st Contact Info) Description 02/21/2024 9:45 EDT Office Visit [facility] Adult Primary Care - [address] [phone] Carrington Calderon MD [address] [phone] 02/27/2024 8:30 EDT Telemedicine [facility] Sleep Program - [address] [phone] Colbert Dwight [address] [place] [address] 02/29/2024 10:30 EDT Appointment [facility] Radiology Nuclear Medicine and PET [address] 963581 02/29/2024 14:30 EDT Appointment [facility] Radiology Nuclear Medicine and PET [address] [address] 03/01/2024 8:00 EDT Appointment [facility] Radiology Nuclear Medicine and PET [address] [phone] 03/01/2024 9:30 EDT Appointment [facility] Radiology Nuclear Medicine and PET [address] 781671 documented as of this encounter Visit Diagnoses Not on filedocumented in this encounter Care Teams Lean Manufacturing Leader Relationship Specialty Start Date End Date Carrington Calderon MD [address] [place] [phone] PCP - General Internal Medicine - Primary Care 12/09/20 Carmelo Hendrickson Coordinator 12/01/23 Abigail Díaz Cone Runner 01/04/24 documented as of this encounter
--- OUTSIDE RECORDS SUMMARY | 2024-02-06 13:30 | XMS_ITS | Encounter Summary ---
Author Organization [facility] Address [address] [place] [address] Care Team Providers Care Solid Propellant Processor Name Role Phone Carrington Calderon MD Primary Care Provi anders Carmelo Hendrickson Unavailable Unavailable Abigail Díaz Unavailable Encounter Details Date Type Department Care Team (Late st Contact Info) Description 01/06/2024 Lab Requisition [facility] Pathology & Laboratory Medicine - [facility] [address] [place] [address] Outr Resulting Lab, Provider Social History Tobacco Use Types Packs/Day Years Used Date Smoking Tobacco: Never Assessed [facility] Utilities Answer Date Recorded In the past 12 months has [employer], gas, oil, or water company threatened to [...] in the past 12 m [facility], were you homeless or living in a [...] Visit [facility] Adult Primary Care - [address] [address] Carrington Calderon MD [address] [address] 02/27/2024 8:30 EDT Telemedicine [facility] Sleep Program - [address] 614841 Dwight Colbert [address] [place] [address] 02/29/2024 10:30 EDT Appointment [facility] Radiology Nuclear Medicine and PET [address] [address]211 02/29/2024 14:30 EDT Appointment [facility] Radiology Nuclear Medicine and PET [address] [phone] 03/01/2024 8:00 EDT Appointment [facility] Radiology Nuclear Medicine and PET [facility] [address] [place], [place] [address] 03/01/2024 9:30 EDT Appointment [facility] Radiology Nuclear Medicine and PET [facility] [address] [place] [address] documented as of this encounter Procedures Procedure Name Priority Date/Time Associated Diagnosis Comments OSMOLALITY Routine 01/06/2024 11:15 EDT documented in this encounter Results * (ABNORMAL) OSMOLALITY (01/06/2024 11:15 EDT) Osmolality, Serum 308(H) 275 - 295 mOsm/kg 01/06/2024 17:33 EDT [facility] Blood VENOUS BLOOD / Unknown 01/06/2024 11:15 EDT 01/06/2024 17:04 EDT Provider Outr Resulting Lab CHEMISTRY & BLOOD GAS ORDERABLES [facility] [address] [place], [place] [address] documented in this encounter Visit Diagnoses Not on filedocumented in this encounter Care Teams Solid Propellant Processor Relationship Specialty Start Date End Date Carrington Calderon MD [address] [facility] 1 [place] [address] PCP - General Internal Medicine - Primary Care 12/09/20 Carmelo Hendrickson Coordinator 12/01/23 Abigail Díaz Esthetic Dermatologist 01/04/24 documented as of this encounter
--- OUTSIDE RECORDS SUMMARY | 2024-02-06 13:30 | XMS_ITS | Encounter Summary ---
Author Organization [facility] Address [address] [place] [address] Care Team Providers Care Custom Harvester Name Role Phone Carrington Calderon MD Primary Care Provi anders Abigail Díaz Unavailable Carmelo Hendrickson Unavailable Unavailable Abigail Díaz Unavailable [phone] Reason for Visit * Reason Onset Date Comments Medications Refill 12/20/2023 Encounter Details Date Type Department Care Team (Late st Contact Info) Description 12/20/2023 Refill [facility] Adult Primary Care - [address] [phone] Carrington Calderon MD 1 [facility] Level 1 [place] [phone] Medications Refill Social History Tobacco Use Types Packs/Day Years Used Date Smoking Tobacco: Every Day Cigarettes 0.5 13.2 Started: 11/10/2010 Smokeless Tobacco: Never Comments:06/13/20 actively try ing to quit about 5-8 cigs/day Alcohol Use Standard Drinks/Week Comments Yes 0 (1 standard drink = 0.6 oz pur e alcohol) rarely [facility] Utilities Answer Date Recorded In the [...] slept in a fpc (including now)? No 06/14/2023 Housing Stability Vital [...] the past 12 m [facility], were you homeless or living in a fpc (including now)? No 11/15/2023 Interpersonal Safety Answer [...] encounter Miscellaneous Notes * Telephone Encounter - Negrito Berenice - 12/20/2023 0826 EDT Medication(s) Requested/ Last Ordered: Tramadol/ 1.22.24 Lorazepam/ 06.27.23 Preferred Pharmacy: [facility] [address] [place] [address] Is patient out of medication? Yes Last Visit Date with Ordering Provider: 12/01/2023 Next Non-Acute Visit Date Scheduled with Care Team: 02/21/2024 Berenice Mahan 12/20/2023 8:26 documented in this encounter Plan of Treatment Upcoming Encounters Date Type Department Care Team (Late st Contact Info) Description 02/21/2024 9:45 EDT Office Visit [facility] Adult Primary Care - [address] 8[address]31 Carrington Calderon MD [address] [address] 02/27/2024 8:30 EDT Telemedicine [facility] Sleep Program - [address] [address]221 Dwight Colbert [address] [place] [address] 02/29/2024 10:30 EDT Appointment [facility] Radiology Nuclear Medicine and PET [address] [phone] 02/29/2024 14:30 EDT Appointment [facility] Radiology Nuclear Medicine and PET [address] [phone] 03/01/2024 8:00 EDT Appointment [facility] Radiology Nuclear Medicine and PET [address] [phone] 03/01/2024 9:30 EDT Appointment [facility] Radiology Nuclear Medicine and PET [address] [phone] documented as of this encounter Visit Diagnoses [...] documented as of this encounter Care Teams Custom Harvester Relationship Specialty Start Date End Date Carrington Calderon MD 1 [facility] 1 [place] [phone] PCP - General Internal Medicine - Primary Care 12/09/[address] Supervisor 04/21/23 01/03/24 Carmelo Hendrickson Coordinator 12/01/[address] Supervisor 01/04/24 documented as of this encounter
--- OUTSIDE RECORDS SUMMARY | 2024-02-06 13:30 | XMS_ITS | Clinical Summary ---
Author Organization [facility] Address [address] [place] [address] Care Team Providers Care Freight Dispatcher Name Role Phone Carrington Calderon MD Primary Care Provi anders Carmelo Hendrickson Unavailable Unavailable Abigail Díaz Unavailable [phone] Allergies Active Allergy Reactions Criticality Noted Date [...] Active lidocaine 5 % (LIDODERM) 5 % patchIndications:C hronic midline low back pain without sciatica Place 1 Patch onto the skin daily. Patch(es) may remain in place for up to 12 hours in any 24-hour period. 30 Patch 2 3 Active omeprazole (PRILOSEC) 20 mg capsuleIndications :Gastroparesis Take 1 Capsule by mouth daily. 90 Capsule 3 3 Active prochlorperazine (COMPAZINE) 25 mg suppositoryIndicat ions:Cyclic vomiting syndrome Place 1 Suppository rectally every 12 hours as needed for Nausea. 6 Suppository 11 3 Active prochlorperazine (COMPAZINE) 10 mg tabletIndications: Cyclic vomiting syndrome Take 1 Tablet by mouth every 8 hours as needed for Nausea. 8 Tablet 11 3 Active ZOLMitriptan (ZOMIG) 2.5 mg tabletIndications: Catamenial disorder,Migraine with aura and without status migrainosus, not intractable,Cyclic vomiting syndrome Take 1 Tablet by mouth 2 times daily. BID starting 2 days prior to onset of menses, continuing for a total of 5 days (10 doses) 10 Tablet 11 3 Active Blood-Glucose Sensor (DEXCOM G6 SENSOR) deviceIndications: Type 2 diabetes mellitus with diabetic polyneuropathy, with long-term current use of insulin ([facility]) Inject 1 Each into the skin every 10 days. 9 Each 4 3 Active ondansetron (ZOFRAN-ODT) 4 mg disintegrating tabletIndications: Cyclic vomiting syndrome Take 1 Tablet by mouth every 8 hours as needed for Nausea. 30 Tablet 11 4 Active insulin glargine (LANTUS SOLOSTAR/SEMGLEE) 100 unit/mL (3 mL) injection penIndications:Typ e 2 diabetes mellitus with diabetic polyneuropathy, with long-term current use of insulin ([facility]) Inject 44 Units into the skin at bedtime. 36 mL 4 4 Active empagliflozin (JARDIANCE) 25 mg tabletIndications: Type 2 diabetes mellitus with diabetic polyneuropathy, with long-term current use of insulin ([facility]) Take 1 Tablet by mouth daily. 90 Tablet 4 4 Active SITagliptin phosphate (JANUVIA) 100 mg tabletIndications: Type 2 diabetes mellitus with diabetic polyneuropathy, with long-term current use of insulin ([facility]) Take 1 Tablet by mouth daily. 90 Tablet 4 4 Active metoclopramide HCl (REGLAN) 10 mg tablet Take 1 Tablet by mouth 3 times daily before meals. Starting 3 days before menses and stopping after end of period 270 Tablet 3 4 Active gabapentin (NEURONTIN) 300 mg capsuleIndications :Diabetic polyneuropathy associated with type 2 diabetes mellitus ([facility]) Take 1 Capsule by mouth every morning AND 4 Capsules at bedtime. 450 Capsule 4 4 Active SUMAtriptan (IMITREX) 20 mg/actuation nasal spray USE 1 SPRAY(S) INTO RIGHT NOSTRIL NEEDED FOR MIGRAINE HEADACHE 6 Each 1 4 Active Blood-Glucose Transmitter (DEXCOM G6 TRANSMITTER) deviceIndications: Type 2 diabetes mellitus with diabetic polyneuropathy, with long-term current use of insulin ([facility]) Inject 1 Each into the skin every 3 months. 1 Each 4 4 Active HUMALOG KWIKPEN INSULIN 100 unit/mL injectable penIndications:Typ e 2 diabetes mellitus with diabetic polyneuropathy, with long-term current use of insulin ([facility]) 8 units with breakfast, 15 units with lunch/dinner 30 mL 11 4 Active traZODone (DESYREL) 50 mg tabletIndications: Primary insomnia Take 1 Tablet by mouth at bedtime. 30 Tablet 4 4 Active LORazepam (ATIVAN) 0.5 mg tabletIndications: Anxiety Take 1 Tablet by mouth daily as needed for Anxiety. Daily Max: 0.5 mg 30 Tablet 3 4 Active traMADol (ULTRAM) 50 mg tabletIndications: Chronic midline low back pain without sciatica Take 1 Tablet by mouth every 6 hours as needed for Pain. Daily Max: 200 mg 30 Tablet 5 4 Active blood glucose meterIndications:T ype 2 diabetes mellitus with diabetic polyneuropathy, with long-term current use of insulin ([facility]) Brand: Freestyle Lite 1 Each 4 Active blood glucose test stripsIndications: Type 2 diabetes mellitus with diabetic polyneuropathy, with long-term current use of insulin ([facility]) Brand: Freestyle Lite, check glucose 4 times per day for insulin dose titration 100 Each 4 Active lancetsIndications :Type 2 diabetes mellitus with diabetic polyneuropathy, with long-term current use of insulin ([facility]) Brand: Freestyle, check glucose 4 times per day for insulin dose titration 100 Each 11 4 Active DULoxetine 40 mg capsule,delayed release(DR/EC)Marcella cations:Anxiety and depression Take 1 capsule by mouth once daily 90 Capsule 3 4 Active DULoxetine 40 mg capsule,delayed release(DR/EC)Marcella cations:Anxiety and depression Take 40 mg by mouth daily. 30 Capsule 11 3 024 Discontinued Hospital, Clinic, or Other Facility Administered Medication [...] Confirmed patient has Traditional Medicaid now. TCN: [id number] Category: P2 Garfield Healy 06/10/2020 19:11 Problem Noted Date Diagnosed Date Tobacco use 12/21/2021 Skin infection 12/21/2021 Pannus, abdominal 12/21/2021 Overview: - as of 01/2022, does not meet criteria for surgical intervention (see 01/29/22 note) Neuropathic diabetic ulcer of foot ([facility]) Gastroparesis 08/10/2020 Overview: - Confirmed on gastric [...] polyneuropathy, with long-term current use of insulin ([facility]) 06/05/2020 Overview: - Dx approx age [...] approx 2012 - had SI, treated at [place]. Marijuana prn to help with stress/anxiety sx -Describes paradoxical effect of citalopram, reportedly resulting in the above admission at [place] Migraine with aura and witho ut status [...] Overview: Added automatically from request for surgery [id number] of unknown anatomic location 06/20/2020 06/27/2020 Overview: Clinical Group: [facility] Patient HPI: Cristy Luo is an 35 y.o. , patient with history of ectopic and positive HCG during post operative period for unrelated procedure. Reported cramping to [facility] nurse on 06/19. LMP: End of the first week of May Rh status: B- Rhogam: Given by [facility] 06/20/20 Desired : Unknown [...] 06/20/2020: US today and given RhoGham by [facility]. Place in BB per [...] repeat HCG 06/25 & U/S 06/25 in [facility] clinic. MARCELO Dale 06/25/20: U/S results - [...] Overview: Added automatically from request for surgery [id number] Type 2 diabetes mellitus wit h left diabetic foot ulcer ([facility]) 05/03/2020 03/27/2021 Osteomyelitis of great toe o f left foot ([facility]) 03/12/2020 06/11/2021 Diabetic foot ulcer associat ed with diabetes mellitus due to underlying condition ([facility]) 03/07/2020 03/27/2021 Diabetic foot infection ([facility]) 03/06/2020 06/11/2021 Diabetic foot ulcer ([facility]) 03/06/2020 06/11/2021 Cellulitis of great toe of left foot 11/26/2019 06/11/2021 Encounter for sterilization 11/20/2019 06/20/2020 Overview: Added automatically from request for surgery [id number] Missed 10/12/2019 10/15/2019 Overview: Clinical Group: ED [...] would like in office procedure kimberly & C. Aiden is working on scheduling procedure---> procedure scheduled today (10/11) with Dr. Martínez.. Suyapa, RN 10/15/2019 Call to check in with patient just to make sure she is feeling well and then can remove from beta book (sac seen during procedure, no pathology necessary). R. Parad 10/15/19: Spoke with Catherine, doing well, [...] PCR results found No results found for: [id number] HgA1c [ ] 1T pending [ ] [...] visit. Ectopic 10/25/2018 10/12/2019 Overview: Clinical Group: [facility] (eg. COGS, ED patient, UOM, MFM, [...] 11/21/18: Quant Beta HCG 299.98 mIU/mL at [facility] (ref range <2.39) 12/03/18: Quant Beta HCG, 41.94 mIU/ml at [facility] 12/13/18: Quant Beta HCG, 13.63 mIU/ml at [facility] Plan: 10/24/18: per Dr. Coronado repeat [...] go to lab 11/08. [place] [place]: Plan per Dr. Almeida, repeat HCG in 1 week (11/17). Results & plan reviewed with Cristy. MARCELO Dale 11/21/18 Pt plans on going to [facility] today. [facility] [place]. BHCG 299.98. Repeat in 1 week. Pt would like to go 11/27/18([facility]) as off from work [facility] 12/01/18: LVM for pt to repeat lab work kimberly. This was the fourth call. JON, RN 12/03/18: Per Dr. Kenyon, repeat HCG 12/10. LVM for pt with plan (count as 1st attempt). JON RN 12/11/18: LVM (second call) re: HCG due. MARCELO Dale 12/12/18: Spoke with Cristy, she will get HCG drawn 7 am. NOS MFM consult, will be rescheduled. [...] [facility] in OBGYN Type 2 diabetes mellitus ([facility]) 09/03/2015 06/11/2021 Overview: - Dx approx age 25, possible mixed physiology (type I/II) - intolerant of MFM (diarrhea) Encounters Date Type Department Care Team Description 02/06/2024 Telephone [facility] Adult Primary Care - [address] [place] [address] Cedric Yoon MD Neck Pain 02/06/2024 Telephone [facility] Adult Primary Care [facility] [address] [place] [address] Cedric Yoon MD Torticollis 01/18/2024 Refill [facility] [address] [place] [address] Carrington Calderon MD Medications Refill 01/06/2024 Lab Requisition [facility] Pathology & Laboratory Medicine [address] [address] Outr Resulting Lab, Provider 01/06/2024 Telephone [facility] Primary [facility] [address] [place] [address] Carrington Calderon MD Medication Management 01/03/2024 Lab Requisition [facility] Pathology & Laboratory [address] [address] Madelin Ojeda MD Encounter for other general examination 12/20/2023 Refill [facility] [address] [place] [address] Carrington Calderon MD Medications Refill 12/15/2023 Patient Outreach [address] [address] Abigail Díaz 12/14/2023 Patient Outreach [facility] Primary [facility] [address] [place] [address] Carmelo Hendrickson 12/09/2023 Orders Only [facility] Radiology [address] [address] Teresita Fitzpatrick MD 12/07/2023 Patient Outreach [facility] Primary [address] [address] Carmelo Hendrickosn 12/02/2023 Patient Outreach [facility] Adult Primary [facility] [address] [place] [address] Carmelo Hendrickson 12/02/2023 Patient Outreach [address] [id number] Abigail Díaz 12/01/2023 15:45 EDT Office Visit [address] [address] Nimisha Clifton NP Neuropathic diabetic ulcer of foot (HCC-CMS) (Primary Dx); Pre-op exam 12/01/2023 Patient Outreach [address] [address] Carmelo Hendrickson 11/22/[address] 467131 Carrington Calderon MD Results 11/18/2023 Community Health Team [address] [id number] Care Management, [facility] 11/16/2023 11:00 EDT Telemedicine [facility] Gastroenterology - Main [address] [id number] Scott Arzate MD Cyclic vomiting syndrome (Primary Dx) 11/15/2023 Patient Outreach [address] [address] Abigail Díaz Encounter for screening involving social determinants of health (SDoH) (Primary Dx) 11/11/2023 13:30 EDT Phlebotomy Only [facility] Laboratory Services - [address] [address] Pool Manager, [facility] Lab Abnormal thyroid blood test; Encounter for screening for other viral diseases 11/11/2023 13:00 EDT Office Visit [address] [address] Carrington Calderon MD Type 2 diabetes mellitus [...] yrs+) 07/06/2021 Covid-19 mRNA-LNP Bivalent V accine (AmberWave BIVALENT VACCINE) PF 0.3 mL IM (12 [...] smoking- clear secretions. Diabetes mellitus, type 2 ([facility]) pt check blood sugars at home- [...] Gastroparesis Neuropathic diabetic ulcer o f foot ([facility]) 09/17/2021 Family History Medical History Relation Comments Diabetes Maternal Aunt Cancer Maternal Grandmother Breast Diabetes Paternal Aunt Diabetes Paternal Grandmother Diabetes Paternal Uncle Relation Status Comments Maternal Aunt Maternal Grandmother Paternal Aunt Paternal Grandmother Paternal Uncle Social History Tobacco Use Types Packs/Day Years Used Date Smoking Tobacco: Every Day Cigarettes 0.5 13.2 Started: 11/10/2010 Smokeless Tobacco: Never Tobacco Cessation:Ready to Q uit: Not Asked; Counseling Given: Not Answered Comments:06/13/20 actively trying to quit about 5-8 cigs/day Alcohol Use Standard Drinks/Week Comments Yes 0 (1 standard drink = 0.6 oz pur e alcohol) rarely [employer] Utilities Answer Date Recorded In the past 12 months has [employer], oil, or water [employer] threatened to shut off services in your [...] any time in the past 12 m [facility], were you homeless or living [...] ex ; twin confirmed by US at [facility]; no medical or surgical tx 01/2015 SAB 9w0 d SAB Comments:D&C at [facility]; f irst current 08/2015 SAB 10w 0d SAB Comments:D&C at [facility]; 2 nd with current 02/2017 SAB 6w0 d SAB Comments:D&C at [facility]; t hird with current 06/2017 SAB 6w0 d SAB Comments:D&C at [facility]; nonviable seen on US; fourth with current 01/2018 SAB 6w0 d SAB Comments:D&C at [facility] after nonviable on US; had to have repeat D&C in April for retained POCs 10/2018 Ectopic 10w 4d ECTOPIC Comments:interstitial diagnosed at [facility]; given MTX 10/26/1810/2019 SAB Comments:D+C Last [...] [facility] [address] [address] Carrington Calderon MD 1 [facility] [address] [place] [id number] 02/27/2024 8:30 EDT Telemedicine [facility] Sleep Program - [address] [phone] Dwight Colbert [address] [place] [phone] 02/29/2024 10:30 EDT Appointment [facility]ical [facility] Radiology Nuclear Medicine and PET [address] [phone] 02/29/2024 14:30 EDT Appointment [facility] Radiology Nuclear Medicine and PET [address] [id number] 03/01/2024 8:00 EDT Appointment [facility] Radiology Nuclear Medicine and PET [address] [phone] 03/01/2024 9:30 EDT Appointment [facility] Radiology Nuclear Medicine and PET [address] [id number] Health Maintenance Due Date Last Done Comments Hepatitis B Vaccine (1 of 3 - 19+ 3-dose series) 2004 Eye Exam 07/30/2017 07/30/2016 Microalbumin/Creatinine Ratio 11/27/2020 11/28/2019 Lipid Profile Screening (Cholesterol) 11/27/2022 11/28/2019 Hemoglobin A1C (Ha1C) 06/14/2023 03/14/2023 , 07/28/2020, 05/03/2020, Additional history exists Foot Exam 11/18/2023 11/17/2022, 11/04, 09/17/2021 Prescription Agreement 11/18/2023 11/17/2022 COVID-19 Vaccine ( season) 2024 11/17/2022, 07/06/2021, 01/28/2021 Influenza Immunization (Adult) (#1) 2024 03/09/2021 Depression [...] Diagnosis Comments OSMOLALITY Routine 01/06/2024 11:15 EDT SURGICAL PATHOLOGY Today 01/02/2024 8: 23 EDT Encounter for other general examination T3, TOTAL Today 11/11/2023 13:53 EDT Abnormal [...] polyneuropathy, with long-term current use of insulin ([facility]) LIPID PROFILE (INCLUDES CHOLESTEROL, TRIGLYCERIDES, HDL, LDL) Routine 11/28/2019 15:56 EDT Type 2 diabetes mellitus with other specified complication, unspecified whether moth exterminator insulin use ([facility]) URINE [id number] NE RATIO (ACR) Routine 11/28/2019 15:56 EDT Type 2 diabetes mellitus with other specified complication, unspecified whether snf insulin use ([facility]) from Last 3 Months or Most Recently Relevant to Health Maintenance Results * (ABNORMAL) OSMOLALITY (01/06/2024 11:15 EDT) Osmolality, Serum 308(H) 275 - 295 mOsm/kg 01/06/2024 17:33 EDT [facility] Blood VENOUS BLOOD / Unknown 01/06/2024 11:15 EDT 01/06/2024 17:04 EDT Provider Outr Resulting Lab CHEMISTRY & BLOOD GAS ORDERABLES [facility] [address] [place] [phone] * SURGICAL PATHOLOGY (01/02/2024 8:23 EDT) Note to Patient The following pathology results have been interpreted by your pathologist and may be available to you before your health provider has had the opportunity to review them. Please allow time for your provider to receive these results and explore management options, if applicable. 01/09/2024 11:58 EDT [facility] Final Diagnosis A. FOOT, LEFT, TRANSMETATARSAL AMPUTATION: - Skin and soft tissue with marked acute inflammation and necrosis involving the resection margin. - Underlying bone with acute osteomyelitis. - Two of five bone resection margins with extensive acute osteomyelitis (see comment). 01/09/2024 11:58 [facility] Diagnosis Comment Correlate with microbiology studies. 01/09/2024 11:58 [facility] Attestation By the signature below, the attending physician certifies that they have 1) personally conducted a gross and/or microscopic examination of the described specimen(s), and/or personally interpreted the results of laboratory testing of the described specimen(s), and 2) personally rendered or confirmed the above diagnosis. 01/09/2024 11:58 [facility] at 1158 Clinical History Diabetic foot ulcer 01/09/2024 11:58 [facility] Gross Description A. Received in formalin labelled with proper patient identification (initials Y, E) and left foot is a 10.0 x 8.0 x 3.0 cm left forefoot amputation specimen with 5 disarticulated bones at the margin end. The 1st and 2nd toes has been previously amputated. The remaining 3 toes are unremarkable. The nails are identified on the 4th and 5th toes and are yellow and thickened. On the plantar aspect of the foot is a 1.5 x 1.4 cm riddle-brown ulceration which is less than 0.1 cm from the closest plantar proximal skin and soft tissue margin of resection. The remainder of the skin is colunga and wrinkled. Also received separately within the same specimen container are 5 colunga irregular bone fragments. One end of each fragment is disarticulated and the opposing ends are transected, grossly consistent with bone margin of resection. The bone fragments range from 3.0 x 1.5 x 1.5 cm to 3.0 x 2.5 x 2.3 cm and aggregate 8.0 x 3.5 x 2.5 cm. Heat Treat Operator sections are submitted as follows: BLOCK SHIELDS A1- plantar ulcer to closest skin and soft tissue margin of resection (inked blue), perpendicular A2- bone underlying plantar ulcer, following acid decalcification A3-A4- separately received transected bone margins, en face, following acid decalcification (differentially inked) EUNICE MAE(ASCP) 01/03/2024 10:29 01/09/2024 11:58 EDT [facility] Performing Lab [facility] 11:58 EDT [facility] Scanned Images 01/09/2024 11:58 EDT [facility] Tissue TRAUMATIC AMPUTATION OF UPPER LIMB / Unknown 01/02/2024 8:23 EDT 01/03/2024 8:00 EDT Madelin Ojeda MD PATHOLOGY ORDERABLES Performing Organization Address City/[facility]/ZIP Co de Phone Number [facility] [address] [place] [address] * (ABNORMAL) THYROID CASCADE (11/11/2023 13:53 EDT) TSH 0.37(L) 0.47 - 4.68 mIU/L 11/11/2023 15:38 EDT [facility] Blood VENOUS BLOOD / Unknown Venipuncture / Unknown 11/11/2023 13:53 EDT 11/11/2023 13:55 EDT Narrative [facility] - 11/11/2023 15:38 EDT NOTE: The results of this assay can be falsely lowered due to the consumption of Biotin. Carrington Calderon MD CHEMISTRY & BLOOD GAS ORDERABLES Performing Organization Address City/[facility]/ZIP Co de Phone Number [facility] [address] [place] [address] * HEPATITIS C AB W REFLEX TO HCV RNA BY PCR (11/11/2023 13:53 EDT) Hep C Antibody Negative Negative 11/11/2023 17:03 EDT [facility] Blood VENOUS BLOOD / Unknown Venipuncture / Unknown 11/11/2023 13:53 EDT 11/11/2023 13:55 EDT Carrington Calderon MD CHEMISTRY & BLOOD GAS ORDERABLES Performing Organization Address [facility]/ZIP Co de Phone Number [facility] [address] [place], [place] [address] * HEPATITIS B PROFILE (11/11/2023 13:53 EDT) Hep B Surface Ag Negative Negative 11/11/19 17:04 EDT [facility] Hep B Surface Ab, Quantitative <3.1 See Note mIU/mL 11/11/2023 17:04 EDT [facility] Comment: Reference Range for Hep B Surface Ab, Quant: Positive: >= 10.0 mIU/mL Negative: ??< 10.0 mIU/mL Patient is presumed to not be immune to infection with Hepatitis B Virus. Hep B Surface Ab, Qualitative Negative See Note 11/11/2023 17:04 EDT [facility] Comment: Reference Range for Hep B Surface Ab, Qual: Unvaccinated: ??Negative Vaccinated: ??Positive Hepatitis B Core Ab, Total Negative Negative 11/11/2023 17:04 EDT [facility] Blood VENOUS BLOOD / Unknown Venipuncture / Unknown 11/11/2023 13:53 EDT 11/11/2023 13:55 EDT Carrington Calderon MD CHEMISTRY & BLOOD GAS ORDERABLES Performing Organization Address [facility] Co de Phone Number [facility] [address] [place], [place] [address] * HIV 1/2 ANTIGEN AND ANTIBODY, 4TH GENERATION (11/11/2023 13:53 EDT) HIV 1 and 2 Antibody/p24 Antigen, 4th Generation Negative Negative 11/11/2023 17:04 EDT [facility] Comment:If acute HIV-1 infec tion is suspected in a high risk patient, submit plasma specimen for HIV-1 RNA quantitation test. Blood VENOUS BLOOD / Unknown Venipuncture / Unknown 11/11/2023 13:53 EDT 11/11/2023 13:55 EDT Narrative [facility] - 11/11/2023 17:04 EDT Fourth Generation assay performed on the Siemens Centaur XPT. Carrington Calderon MD IMMUNOLOGY AND SEROLOGY ORDERABLES Performing Organization Address [facility] Co de Phone Number [facility] [address] [place], [place] [address] * T3, TOTAL (11/11/2023 13:53 EDT) T3, Total 137 97 - 169 ng/dL 11/11/2023 17:27 EDT [facility] Blood VENOUS BLOOD / Unknown Venipuncture / Unknown 11/11/2023 13:53 EDT 11/11/2023 13:55 EDT Carrington Calderon MD CHEMISTRY & BLOOD GAS ORDERABLES Performing Organization Address [facility] Co de Phone Number [facility] [address] [place] [phone] * T4 FREE (11/11/2023 13:53 EDT) T4, Free 1.1 0.8 - 2.2 ng/dL 11/11/2023 16:08 EDT [facility] Blood VENOUS BLOOD / Unknown Venipuncture / Unknown 11/11/2023 13:53 EDT 11/11/2023 13:55 EDT Carrington Calderon MD CHEMISTRY & BLOOD GAS ORDERABLES Performing Organization Address [facility] [facility] Co de Phone Number [facility] [address] [place], [place] [address] * PAP TEST (06/27/2023 16:00 EST) Specimens A. Cervix and/or Endocervix , ThinPrep Imaging System with Manual Evaluation 07/13/2023 16:25 EST [facility] Specimen Adequacy Satisfactory for Evaluation - transformation zone component absent 07/13/2023 16:25 EST [facility] General Categorization Negative for intraepithelial lesion or malignancy 07/13/2023 16:25 [facility] Attestation . 07/13/2023 16:25 [facility] at 1625 Clinical History screening 07/13/19 24 16:25 [facility] HPV The result for the Human Papillomavirus (HPV) Detection-High Risk Types is Negative. No E6 or E7 mRNA is detected from HPV types 16,18,31,33,35,39 ,45,51,52,56,58,5 9,66, and 68 by visual design lead mediated amplification.Lorena ting was performed on specimen [id number] and was resulted on 07/13/2023 1625 EST by JANET, LAB INSTRUMENT RESULTS IN 07/13/2023 16:25 [facility] Performing Lab [facility] 07/13/2023 16:25 [facility] Scanned Images 07/13/2023 16:25 [facility] Pap Test CERVIX UTERI STRUCTURE / Unknown 06/27/2023 16:00 EST 06/27/2023 16:00 EST Carrington Calderon MD PATHOLOGY O RDERABLES Performing Organization Address City/State/[facility] Co de Phone Number [facility] [address] [place] [address] * (ABNORMAL) HEMOGLOBIN A1C (03/14/2023 15:19 EDT) Hemoglobin A1c 8.3(H) <5.7 % 03/14/2023 22:02 T [facility] Comment: Glycemic Status References: Normal: ??<5.7% Pre-Diabetes: ??5.7% - 6.4% Diagnostic of Diabetes: ??> or = 6.5% (if confirmed) Est Avg Glucose 192 mg/dL 22:02 [facility] Comment:The eAG represents t he A1c result expressed as average glucose in mg/dL. Blood VENOUS BLOOD / Unknown Venipuncture / Unknown 03/14/2023 15:19 EDT 03/14/2023 15:19 EDT Carrington Calderon MD CHEMISTRY & BLOOD GAS ORDERABLES Performing Organization Address [facility] Co de Phone Number [facility] [address] [place] [address] * (ABNORMAL) ALBUMIN, URINE (11/28/2019 15:56 EDT) Albumin, Urine 11.3 See Note mg/dL 2019 16:47 EDT [facility] Comment: NOTE: Reference range not established Creatinine, Urine 143.1 See Note mg/dL 11/28/2019 16:47 EDT [facility] Comment: NOTE: Reference range not established Lab Urine Albumin to Creatinine Ratio 79(H) <30 ug/mg Creatinine 11/28/2019 16:47 EDT [facility] Comment: Urine Albumin/Creatinine Ratio: Normal: <30 ug/mg Creatinine Moderately increased albuminuria: 30-300 ug/mg Creatinine Severley increased albuminuria: >300 ug/mg Creatinine Urine URINE SPECIMEN OBTAINED BY CLEAN CATCH PROCEDURE / Unknown Urine Collect / Unknown 11/28/2019 15:56 EDT 11/28/2019 15:56 EDT Tonja Alejandro PA-C CHEMISTRY & BLOOD GAS ORDERABLES Performing Organization Address City/[facility] Co de Phone Number [facility] [address] [place] [address] * LIPID PROFILE (INCLUDES CHOLESTEROL, TRIGLYCERIDES, HDL, LDL) (11/28/2019 15:56 EDT) Cholesterol 179 See Note mg/dL 11/28/2019 17:12 EDT [facility] Comment: Acceptable: ?<200 mg/dL Borderline High: 200-239 mg/dL High: ?> or = 240 mg/dL HDL 38 See Note mg/dL 11/28/2019 17:12 EDT [facility] Comment: Low: ? <40 mg/dL Normal: ??40-60 mg/dL High: ?>60 mg/dL LDL, Calculated 61 See Note mg/dL 11/28/2019 17:12 [facility] Comment: Optimal: ? <100 mg/dL Near Optimal: ?100-129 mg/dL Borderline High: 130-159 mg/dL High: ?160-189 mg/dL Very High: ? > or = 190 mg/dL Triglyceride 398 See Note mg/dL 11/28/2019 17:12 [facility] Comment: Normal: ? <150 mg/dL Borderline High: ??150 - 199 mg/dL High: ? 200 - 499 mg/dL Very High: ?> or = 500 mg/dL Chol/HDL Ratio 4.7 See Note 11/28/2019 17:12 T [facility] Comment: No reference range has been established for CHOL/HDL ratio. Non HDL Cholesterol 141 See Note mg/dL 11/28/2019 17:12 [facility] Comment: Desirable: ?<130 mg/dL Borderline High: ??130-159 mg/dL High: ? 160-189 mg/dL Very High: ?> or = 190 mg/dL Blood VENOUS BLOOD / Unknown Venipuncture / Unknown 11/28/2019 15:56 EDT 11/28/2019 15:56 EDT Tonja Alejandro PA-C CHEMISTRY & BLOOD GAS ORDERABLES [facility] [address] [place] [address] from Last 3 Months or Most Recently Relevant to Health Maintenance Advance Directives For more information, please contact: [phone] Documents on File Type Date Recorded Patient Heat Treat Operator Expl anation Advance Directive 11/23/2022 10:36 Appt [...] participated in the discussion? Patient Care Teams Freight Dispatcher Relationship Specialty Start Date End Date Carrington Calderon MD 1 [facility] [address] [place] [address] PCP - General Internal Medicine - Primary Care 12/09/20 Carmelo Hendrickson Coordinator 12/01/23 Abigail Díaz Clay Miner 01/04/24
--- OUTSIDE RECORDS SUMMARY | 2024-02-06 13:30 | XMS_ITS | Encounter Summary ---
Author Organization [facility] Address [address] [place] [address] Care Team Providers Care Divider Operator Name Role Phone Carrington Calderon MD Primary Care Provi anders Abigail Díaz Unavailable [phone] Carmelo Hendrickson Unavailable Unavailable Abigail Díaz Unavailable Encounter Details Date Type Department Care Team (Late st Contact Info) Description 12/15/2023 Patient Outreach [facility] Adult Primary Care - [address] [phone] Abigail Díaz Social History Tobacco Use Types Packs/Day Years Used Date Smoking Tobacco: Every Day Cigarettes 0.5 13.2 Started: 11/10/2010 Smokeless Tobacco: Never Comments:06/13/20 actively try ing to quit about 5-8 cigs/day Alcohol Use Standard Drinks/Week Comments Yes 0 (1 standard drink = 0.6 oz pur e alcohol) rarely [facility] Utilities Answer Date Recorded In the past 12 months has [employer], gas, oil, or water company threatened to [...] a senior living (including now)? No 06/14/2023 Housing Stability Vital [...] time in the past 12 m [facility], were you homeless or living in a senior living (including now)? No 11/15/2023 Interpersonal Safety Answer [...] encounter Progress Notes * Abigail Díaz - 12/15/2023 0511 EDT [facility] Industrial Truck Driver Care Coordination Care management phone consult as scheduled, pt did not answer phone. or manager called and left voicemail requesting call back to reschedule. documented in this encounter Plan of Treatment Upcoming Encounters Date Type Department Care Team (Late st Contact Info) Description 02/21/2024 9:45 EDT Office Visit [facility] Adult Primary Care - [place] [address] [place], [place] [phone] Carrington Calderon MD 1 [facility] Level 1 [place] [phone] 02/27/2024 8:30 EDT Telemedicine [facility] Sleep Program - [address] [address] Dwight Colbert [address] [place] [phone] 02/29/2024 10:30 EDT Appointment [facility] Radiology Nuclear Medicine and PET - [address] [address] 02/29/2024 14:30 EDT Appointment [facility] Radiology Nuclear Medicine and PET - [address] [id number] 03/01/2024 8:00 EDT Appointment [facility] Radiology Nuclear Medicine and PET - [address] [phone] 03/01/2024 9:30 EDT Appointment [facility] Radiology Nuclear Medicine and PET [address] [address] documented as of this encounter Visit Diagnoses Not on filedocumented in this encounter Care Teams Divider Operator Relationship Specialty Start Date End Date Carrington Calderon MD [address] [place] [phone] PCP - General Internal Medicine - Primary Care 12/09/20 Abigail Díaz Industrial Truck Driver 04/21/23 01/03/24 Carmelo Hendrickson Coordinator 12/01/23 Abigail Díaz Industrial Truck Driver 01/04/24 documented as of this encounter
--- OUTSIDE RECORDS SUMMARY | 2024-02-06 13:30 | XMS_ITS | Encounter Summary ---
Author Organization [facility] Address [address] [place] [address] Care Team Providers Care Electrical Engineer Name Role Phone Carrington Calderon MD Primary Care Provi anders Abigail Díaz Unavailable [phone] Carmelo Hendrickson Unavailable Unavailable Abigail Díaz Unavailable Encounter Details Date Type Department Care Team (Late st Contact Info) Description 01/03/2024 Lab Requisition [facility] Pathology & Laboratory Medicine - [address] [address] Madelin Ojeda MD [address] [place] [address] Encounter for other general examination Social History Tobacco Use Types Packs/Day Years Used Date Smoking Tobacco: Every Day Cigarettes 0.5 13.2 Started: 11/10/2010 Smokeless Tobacco: Never Comments:06/13/20 actively try ing to quit about 5-8 cigs/day Alcohol Use Standard Drinks/Week Comments Yes 0 (1 standard drink = 0.6 oz pur e alcohol) rarely [facility] Utilities Answer Date Recorded In [...] Medical Center Adult Primary Care - [address] [phone] Carrington Calderon MD 1 [facility] 1 [place] [phone] 02/27/2024 8:30 EDT Telemedicine [facility] Sleep Program - [address] [phone] Dwight Colbert [address] [place] [phone] 02/29/2024 10:30 EDT Appointment [facility] Radiology Nuclear Medicine and PET [address] [address] 02/29/2024 14:30 EDT Appointment [facility] Radiology Nuclear Medicine and [address] [address] 03/01/2024 8:00 EDT Appointment [facility] Radiology Nuclear Medicine and [address] [address] 03/01/2024 9:30 EDT Appointment [facility] Radiology Nuclear Medicine and [address] [address] documented as of this encounter Procedures Procedure Name Priority Date/Time Associated Diagnosis Comments SURGICAL PATHOLOGY Today 01/02/2024 8: 23 EDT Encounter for other general examination documented in this encounter Results * SURGICAL PATHOLOGY (01/02/2024 8:23 EDT) Note to Patient The following pathology results have been interpreted by your pathologist and may be available to you before your health provider has had the opportunity to review them. Please allow time for your provider to receive these results and explore management options, if applicable. 01/09/2024 11:58 EDT [facility] Final Diagnosis A. FOOT, LEFT, TRANSMETATARSAL AMPUTATION: - Skin and soft tissue with marked acute inflammation and necrosis involving the resection margin. - Underlying bone with acute osteomyelitis. - Two of five bone resection margins with extensive acute osteomyelitis (see comment). 01/09/2024 11:58 T [facility] Diagnosis Comment Correlate with microbiology studies. 01/09/2024 11:58 [facility] Attestation By the signature below, the attending physician certifies that they have 1) personally conducted a gross and/or microscopic examination of the described specimen(s), and/or personally interpreted the results of laboratory testing of the described specimen(s), and 2) personally rendered or confirmed the above diagnosis. 01/09/2024 11:58 T [facility] at 1158 Clinical History Diabetic foot ulcer 01/09/2024 11:58 EDT [facility] Gross Description A. Received [...] aggregate 8.0 x 3.5 x 2.5 cm. Nail Setter sections are submitted as follows: BLOCK SHIELDS A1- plantar ulcer to closest skin and soft tissue margin of resection (inked blue), perpendicular A2- bone underlying plantar ulcer, following acid decalcification A3-A4- separately received transected bone margins, en face, following acid decalcification (differentially inked) EUNICE MAE(ASCP) 01/03/2024 10:29 01/09/2024 11:58 EDT [facility] Performing Lab [facility] 11:58 T [facility] Scanned Images 01/09/2024 11:58 EDT [facility] Tissue TRAUMATIC AMPUTATION OF UPPER LIMB / Unknown 01/02/2024 8:23 EDT 01/03/2024 8:00 EDT Madelin Ojeda MD PATHOLOGY ORDERABLES [facility] [address] [place], [place] [phone] documented in this encounter Visit Diagnoses Diagnosis Encounter for other general examination documented in this encounter Care Teams Electrical Engineer Relationship Specialty Start Date End Date Carrington Calderon MD 1 [facility] 1 [place] [phone] PCP - General Internal Medicine - Primary Care 12/09/20 Abigail Díaz Tactical Debriefer 04/21/23 01/03/24 Carmelo Hendrickson Coordinator 12/01/23 Abigail Díaz Tactical Debriefer 01/04/24 documented as of this encounter
--- OUTSIDE RECORDS SUMMARY | 2024-02-06 13:30 | XMS_ITS | Encounter Summary ---
Author Organization [facility] Address [address] [place] [address] Care Team Providers Care Equipment Operating Engineer Name Role Phone Carrington Calderon MD Primary Care Provi anders Abigail Díaz Unavailable Carmelo Hendrickson Unavailable Unavailable Encounter Details Date Type Department Care Team (Late st Contact Info) Description 12/14/2023 Patient Outreach [facility] Adult Primary Care - [place] [address] [place], [place] [phone] Carmelo Hendrickson Social History Tobacco Use Types Packs/Day Years Used Date Smoking Tobacco: Every Day Cigarettes 0.5 13.2 Started: 11/10/2010 Smokeless Tobacco: Never Comments:06/13/20 actively try ing to quit about 5-8 cigs/day Alcohol Use Standard Drinks/Week Comments Yes 0 (1 standard drink = 0.6 oz pur e alcohol) rarely C Utilities Answer Date Recorded In the past 12 months has [employer], gas, oil, or water [employer] threatened to shut off services in your [...] any time in the past 12 m [facility], were you homeless or living [...] Carmelo Hendrickson - 12/14/2023 1234 EDT [facility] Hazmat Truck Driver Follow-up Note Encounter type: Telephone Notes: [...] Visit [facility] Adult Primary Care [address] [address] Carrington Calderon MD 1 [facility] Level 1 [place] [phone] 02/27/2024 8:30 EDT Telemedicine [facility] Sleep Program - [address] [address] Sayra Dwight [address] [place] [address] 02/29/2024 10:30 EDT Appointment [facility] Radiology Nuclear Medicine and PET - [address] [address] 02/29/2024 14:30 EDT Appointment [facility] Radiology Nuclear Medicine and PET - [address] [address] 03/01/2024 8:00 EDT Appointment [facility] Radiology Nuclear Medicine and PET - [address] [address] 03/01/2024 9:30 EDT Appointment [facility] Radiology Nuclear Medicine [place] [address] documented as of this encounter Visit Diagnoses Not on filedocumented in this encounter Care Teams Equipment Operating Engineer Relationship Specialty Start Date End Date Carrnigton Calderon MD [address] [place] [phone] PCP - General Internal Medicine - Primary Care 12/09/20 Abigail Díaz Painter Maintenance 04/21/23 01/03/24 Carmelo Hendrickson Coordinator 12/01/23 documented as of this encounter
--- OUTSIDE RECORDS SUMMARY | 2024-02-06 13:30 | XMS_ITS | Encounter Summary ---
Author Organization [facility] Address [address] [place] [address] Care Team Providers Care Ecosystem Ecology Professor Name Role Phone Carrington Calderon MD Primary Care Provi anders Carmelo Hendrickson Unavailable Unavailable Abigail Díaz Unavailable Reason for Visit * Reason Onset Date Comments Neck Pain 02/06/2024 Encounter Details Date Type Department Care Team (Late st Contact Info) Description 02/06/2024 Telephone [facility] Adult Primary Care - [place] [address] [place] [address] Cedric Yoon MD [address] [place] [address] Neck Pain Social History Tobacco Use Types Packs/Day Years Used Date Smoking Tobacco: Every Day Cigarettes 0.5 13.2 Started: 11/10/2010 Smokeless Tobacco: Never Comments:06/13/20 actively try ing to quit about 5-8 cigs/day Alcohol Use Standard Drinks/Week Comments Yes 0 (1 standard drink = 0.6 oz pur e alcohol) rarely [facility] Utilities Answer Date Recorded In the [...] Encounter - Cedric Yoon MD - 02/06/2024 1124 EDT After Hours Call: Patient called back this on-call provider regarding her neck stiffness. Clarifies that she cannot move her head from side to side. Does not recall any trauma to her neck. States he has been unable tosleep due to the pain. Tired heat, ice, acetaminophen, previously prescribed tramadol to little relief. Plan: - Advised presentation to ED for further evaluation and management of pain documented in this encounter Plan of Treatment Upcoming Encounters Date Type Department Care Team (Late st Contact Info) Description 02/21/2024 9:45 EDT Office Visit [facility] Adult Primary Care - [address] [phone] Carrington Calderon MD [address] [phone] 02/27/2024 8:30 EDT Telemedicine [facility] Sleep Program - [address] [address] Colbert Dwight [address] [place] [phone] 02/29/2024 10:30 EDT Appointment [facility] Radiology Nuclear Medicine and PET [address] [address] 02/29/2024 14:30 EDT Appointment [facility] Radiology Nuclear Medicine and PET [address] [address] 03/01/2024 8:00 EDT Appointment [facility] Radiology Nuclear Medicine and PET [address] [phone] 03/01/2024 9:30 EDT Appointment [facility] Radiology Nuclear Medicine and PET [address] [address] documented as of this encounter Visit Diagnoses Not on filedocumented in this encounter Care Teams Ecosystem Ecology Professor Relationship Specialty Start Date End Date Carrington Calderon MD [address] [place] [phone] PCP - General Internal Medicine - Primary Care 12/09/20 Carmelo Hendrickson Coordinator 12/01/23 Abigail Díaz Gear Room Keeper 01/04/24 documented as of this encounter
--- OUTSIDE RECORDS SUMMARY | 2024-02-06 13:30 | XMS_ITS | Encounter Summary ---
Author Organization [facility] Address [address] [place] [address] Care Team Providers Care Can Feeder Name Role Phone Carrington Calderon MD Primary Care Provi anders Abigail Díaz Unavailable [phone] Carmelo Hendrickson Unavailable Unavailable Encounter Details Date Type Department Care Team (Late st Contact Info) Description 12/01/2023 Patient Outreach [facility] Adult Primary Care - [place] [address] [place], [place] [phone] Carmelo Hendrickson Social History Tobacco Use Types Packs/Day Years Used Date Smoking Tobacco: Every Day Cigarettes 0.5 13.2 Started: 11/10/2010 Smokeless Tobacco: Never Comments:06/13/20 actively try ing to quit about 5-8 cigs/day Alcohol Use Standard Drinks/Week Comments Yes 0 (1 standard drink = 0.6 oz pur e alcohol) rarely [facility] Utilities Answer Date Recorded In the past 12 months has [employer], gas, oil, or water [employer] threatened to shut off services in your [...] a skilled nursing (including now)? No 06/14/2023 Housing Stability Vital [...] were you homeless or living in a skilled nursing (including now)? No 11/15/2023 Interpersonal Safety Answer [...] * Carmelo Hendrickson - 12/01/2023 1214 EDT [facility] Fish Butcher Initial Note Referred by: Abigail Díaz [facility] PCP: Carrington Calderon Encounter type: Telephone Reason for Referral: Help with [employer] and other economic programs Notes: This natural resources engineer called Stella who was driving, made plan to call back tomorrow. Plan / Action Items: RC will follow up on 12/02/23 after 11am. Carmelo Hendrickson 12/01/23 12:15 documented in this encounter Plan of Treatment Upcoming Encounters Date Type Department Care Team (Late st Contact Info) Description 02/21/2024 9:45 EDT Office Visit [facility] [place] [address] Carrington Calderon MD 1 [facility] 1 [place] [phone] 02/27/2024 8:30 EDT Telemedicine [facility] Sleep Program - [address] [phone] Dwight Colbert [address] [place] [phone] 02/29/2024 10:30 EDT Appointment [facility] Radiology Nuclear Medicine and PET - [address] [address] 02/29/2024 14:30 EDT Appointment [facility] Radiology Nuclear Medicine and PET [address] 8[address]31 03/01/2024 8:00 EDT Appointment [facility] Radiology Nuclear Medicine and PET [address] [address] 03/01/2024 9:30 EDT Appointment [facility] Radiology Nuclear Medicine and PET [address] [address] documented as of this encounter Visit Diagnoses Not on filedocumented in this encounter Care Teams Can Feeder Relationship Specialty Start Date End Date Carrington Calderon MD [address] [place] [address] 1 [place] [phone] PCP - General Internal Medicine - Primary Care 12/09/20 Abigail Díaz Portable Power Tool Repairer 04/21/23 01/03/24 Carmelo Hendrickson Coordinator 12/01/23 documented as of this encounter
--- OUTSIDE RECORDS SUMMARY | 2024-02-06 13:30 | XMS_ITS | Encounter Summary ---
Author Organization [facility] Address [address] [place] [address] Care Team Providers Care Background Investigator Name Role Phone Carrington Calderon MD Primary Care Provi anders Abigail Díaz Unavailable Carmelo Hendrickson Unavailable Unavailable Reason for Visit * Reason Comments Pre-op Exam Encounter Details Date Type Department Care Team (Late st Contact Info) Description 12/01/2023 15:45 EDT Office Visit [facility] - [place] 1 [place] [address] Nimisha Clifton NP 1 [facility] Level 1 [place] [address] Neuropathic diabetic ulcer of foot [...] Recorded In the past 12 months has [employer] electric, gas, oil, or water company threatened [...] any time in the past 12 m [facility], were you homeless or living [...] exam. Has been followed closely by her associate dentist for ongoing foot infection, the plan is [...] use of insulin ([facility]) ([facility]) ??? Gastroparesis ??? Neuropathic diabetic ulcer of foot ([facility]) ??? Tobacco use ??? Skin infection ??? [...] has a referral for therapy. ??? Diabetes ([facility]) A1c 10.3 on 11/28/2019 - poorly controlled ??? Diabetes mellitus, type 2 ([facility]) pt check blood sugars at home- X [...] occasionally ??? Neuropathic diabetic ulcer of foot ([facility]) 09/17/2021 ??? Obesity, unspecified ??? Osteomyelitis ([facility]) of left great toe-s/p amputation ??? Peripheral [...] [facility] Primary Care - [address] [address]641 Carrington Calderon MD [address] [address] 02/27/2024 8:30 EDT Telemedicine [facility] Sleep Program - [address] [phone] Dwight Colbert [address] [place] [phone] 02/29/2024 10:30 EDT Appointment [facility] Radiology Nuclear Medicine and PET - [address] [id number] 02/29/2024 14:30 EDT Appointment [facility] Radiology Nuclear Medicine and PET - [address] [address] 03/01/2024 8:00 EDT [facility] Nuclear Medicine and PET - [address] [address] 03/01/2024 9:30 EDT [facility] Radiology Nuclear Medicine and PET - [address] [address] documented as of this encounter Visit Diagnoses Diagnosis Neuropathic diabetic ulcer of foot ([facility])- Primary Type II or unspecified type diabetes mellitus with other specified manifestations, not stated as uncontrolled Pre-op exam Preoperative examination, unspecified documented in this encounter Care Teams Background Investigator Relationship Specialty Start Date End Date Carrington Calderon MD 1 [facility] 1 [place] [address] PCP - General Internal Medicine - Primary Care 12/09/20 Abigail Díaz Dividend Deposit Entry Clerk 04/21/23 01/03/24 Carmelo Hendrickson Coordinator 12/01/23 documented as of this encounter
--- OUTSIDE RECORDS SUMMARY | 2024-02-06 13:30 | XMS_ITS | Encounter Summary ---
Author Organization [facility] Address [address] [place] [address] Care Team Providers Care Editorial Writer Name Role Phone Carrington Calderon MD Primary Care Provi anders Abigail Díaz Unavailable Carmelo Hendrickson Unavailable Unavailable Encounter Details Date Type Department Care Team (Late st Contact Info) Description 12/02/2023 Patient Outreach [facility] Adult Primary Care - [place] 1 [place], [place] [phone] Abigail Díaz Social History Tobacco Use Types Packs/Day Years Used Date Smoking Tobacco: Every Day Cigarettes 0.5 13.2 Started: 11/10/2010 Smokeless Tobacco: Never Comments:06/13/20 actively try ing to quit about 5-8 cigs/day Alcohol Use Standard Drinks/Week Comments Yes 0 (1 standard drink = 0.6 oz pur e alcohol) rarely [facility] Utilities Answer Date Recorded In the past 12 months has [employer], gas, oil, or water company threatened to [...] place to sleep or slept in a longterm (including now)? No 06/14/2023 Housing Stability Vital Sign Answer Norm e Recorded In the last 12 months, was t here a time when you were not able to pay the mortgage or rent on time? No 11/15/2023 In the past 12 months, how m any times have you moved where you were living? 1 11/15/2023 At any time in the past 12 m [facility], were you homeless or living in a longterm (including now)? No 11/15/2023 Interpersonal Safety Answer [...] Abigail Díaz - 12/02/2023 0905 EDT [facility] Dairy Farm Operator Care Coordination Care management phone consult as scheduled, pt did not answer phone. agency manager called and left voicemail requesting call back to reschedule. Additional outreach planned documented in this encounter Plan of Treatment Upcoming Encounters Date Type Department Care Team (Late st Contact Info) Description 02/21/2024 9:45 EDT Office Visit [facility] Adult Primary Care - [address] [address] Carrington Calderon MD 1 [facility] Level 1 [place] [address] 02/27/2024 8:30 EDT Telemedicine [facility] Sleep Program - [address] [address] Sayra Dwight [address] [place] [address] 02/29/2024 10:[address] [facility] Radiology Nuclear Medicine and PET [address] [address] 02/29/2024 14:[address] [facility] Radiology Nuclear Medicine and PET - [address] [address] 03/01/2024 8:[address] [facility] Radiology Nuclear Medicine and PET [address] [id number] 03/01/2024 9:[address] [facility] Radiology Nuclear Medicine and PET [address] [address] documented as of this encounter Visit Diagnoses Not on filedocumented in this encounter Care Teams Editorial Writer Relationship Specialty Start Date End Date Carrington Calderon MD [address] [address] PCP - General Internal Medicine - Primary Care 12/09/20 Abigail Díaz Dairy Farm Operator 04/21/23 01/03/24 Carmelo Hendrickson Coordinator 12/01/23 documented as of this encounter
--- OUTSIDE RECORDS SUMMARY | 2024-02-06 13:30 | XMS_ITS | Encounter Summary ---
Author Organization [facility] Address [address] [place] [address] Care Team Providers Care Booth Supervisor Name Role Phone Carrington Calderon MD Primary Care Provi anders Amrita Asenico Unavailable Carmelo Hendrickson Unavailable Unavailable Amrita Asencio Unavailable [phone] Reason for Referral * Referral (Routine/Next Available) - Authorization Not Required Specialty Diagnoses / Procedures Referred By Contac t Referred To Contact Multidisciplinary Diagnoses Encounter for screening involving social determinants of health (SDoH) Carrington Calderon MD 1 [facility] Level 1 [place] [address] [facility] Community Health Team [address] [facility], [address] [place] [address] Referral ID Status Reason Start Date Expiration Date Visits Requested Visits Authorized [id number] Authorization Not Required Specialty Services Required 4 1 1 Question Answer Reason for Request: apply for 3 squares and other relevant economic programs Encounter Details Date Type Department Care Team (Latest Contact Info) Description 11/15/2023 Patient Outreach [facility] Adult Primary Care - [address] [address] Amrita Asencio Encounter for screening involving social determinants of health (SDoH) (Primary Dx) Social History Tobacco Use Types Packs/Day Years Used Date Smoking Tobacco: Former Cigarettes 0.5 13.2 S tarted: 11/10/2010 Smokeless Tobacco: Never Comments:06/13/20 actively try ing to quit about 5-8 cigs/day Alcohol Use Standard Drinks/Week Comments Yes 0 (1 standard drink = 0.6 oz pur e alcohol) rarely [facility] Utilities Answer Date Recorded In the past 12 months has th e [employer], gas, oil, or water [employer] threatened to shut off services in your [...] any time in the past 12 m [facility], were you homeless or living in a [...] as of this encounter Progress Notes * Bre Amrita - 11/15/2023 1501 EDT [facility] Integrated Care Management Assessment and Care Plan Referral Reason: Patient was referred to [facility] to assist with completing application for disability,difficulty with maintaining work Pertinent medical and behavioral health issues: ENT Chronic left ear pain Infectious Disease Skin infection Endocrine/Metabolic Pannus, abdominal Type 2 diabetes mellitus with diabetic polyneuropathy, with long-term current use of insulin ([facility]) ([facility]) Gastrointestinal/Abdominal Gastroparesis Psychiatric Anxiety and depression Musculoskeletal Chronic midline low back pain without sciatica Neuropathic diabetic ulcer of foot ([facility]) Family history of rheumatoid arthritis Neurological Migraine with aura and without status migrainosus, not intractable Other Tobacco use Has the patient had an inpatient hospitalization or an ED visit within the last year: Yes If yes, what was the patient's primary diagnosis for their hospitalization or ED visit? vomiting Patient Care Team: Carrington Calderon MD as PCP - General (Internal Medicine - Primary Care) Amrita Asencio as Barge Engineer Medications: Current Outpatient Medications: acetaminophen (TYLENOL) 325 mg [...] Vega MD, 1 Each at 08/05/23 1318 CM reviewed medication list in the chart Living Arrangement: Patient lives with her , 3 children and mother in law Social Supports: Patient reports that her and sister are her primary supports Activities requiring assistance: Independent with ADLs Current plan for assistance with ADLs: n/a Need for caregiver resources in order to meet patient's ADL needs: not applicable Hearing/Vision: wears glasses patient is in need of eye exam, goal created. Cognitive Function: No cognitive impairment identified Health literacy Assessment: patient is able to read/write, appropriate to their developmental age Social Determinants of Health: SDOH screen completed during visit: Yes Food Insecurity: No Food Insecurity (11/15/2023) Hunger Vital Sign Worried About Running Out of Food in the Last Year: Never true Ran Out of Food in the Last Year: Never true Financial Resource Strain: High Risk (11/15/2023) Overall Financial Resource Strain (CARDIA) Difficulty of Paying Living Expenses: Hard Housing Stability: Low Risk (11/15/2023) Housing Stability Vital Sign Unable to Pay for Housing in the Last Year: No Number of Times Moved in the Last Year: 1 Homeless in the Last Year: No Transportation Needs: No Transportation Needs (11/15/2023) PRAPARE - Transportation Lack of Transportation (Medical): No Lack of Transportation (Non-Medical): No Utilities: Not At Risk (11/15/2023) [facility] Utilities Threatened with loss of utilities: No Depression: Not at risk (06/14/2023) PHQ-2 PHQ-2 Score: 2 Social History Tobacco Use Smoking status: Former Current packs/day: 0.50 Average packs/day: 0.5 packs/day for 13.0 years (6.5 ttl pk-yrs) Types: Cigarettes Start date: 11/10/2010 Smokeless tobacco: Never Tobacco comments: 06/13/20 actively trying to quit about 5-8 cigs/day Substance Use Topics Alcohol use: Yes Comment: rarely Healthcare Insurance: Payer/Plan Subscr Sex Relation Sub. Ins. ID Effective Group Num 1. [place]* [employer]ION LUO 05/08/1986 Male Spouse [id number] 02/14/22 [id number] [address] [place] [address] Any gaps or barriers with healthcare insurance coverage: Yes, Diabetic medications SWCM recommendedpatient using GoodRX or Manufactures coupons DME: [employer] DME vendor: Barbara Barriers to using technology: none identified Preferred method of communication: Text, Phone Call, and Email Cultural, spiritual or language factors affecting health: none identified Existing Community Resources: Patient reports none Gaps in Resources Identified: Patient is in need of assistance accessing public programs for disability and economic programs Advance Directive on File: Yes Prioritized Patient Identified Goals: (needs to include one self-management goal) 1. Patient will schedule an eye exam within 1 month 2. Patient will review SSDI checklist before next visit with [facility] 3. Patient will review Sleep Hygiene resources sent by [facility] before next visit Barriers identified to meeting goals: No barriers identified Assessment/Clinical Summary and Plan: Disability- SWCM reviewed policy and practice for Disability. Patient reports that she is confidentwith help of her family to complete the application checklist SWCM completed intake and assessment Patient reports that she would like t access 3 squares- RC submitted to assist pt in accessing foodprogram Patient reviewed her current health needs and [facility] provided supportive counseling to pt Patient's access to their plan of care: Patient/family will access electronically through [employer] CM will follow-up in one month AMRITA ASENCIO 11/15/2023 15:19 documented in this encounter Plan of Treatment Upcoming Encounters Date Type Department Care Team (Late st Contact Info) Description 02/21/2024 9:45 EDT Office Visit [facility] Adult Primary Care - [address] [phone] Carrington Calderon MD 1 [facility] 1 [place] [phone] 02/27/2024 8:30 EDT Telemedicine [facility] Sleep Program - [address] [phone] Dwight Colbert [address] [place] [address] 02/29/2024 10:30 EDT [facility] Radiology Nuclear Medicine and PET - [address] [address] 02/29/2024 14:30 EDT Appointment [facility] Radiology Nuclear Medicine and PET [address] [address] 03/01/2024 8:00 EDT Appointment ed[facility] [place] Radiology Nuclear Medicine and PET [address] [address] 03/01/2024 9:30 EDT Appointment [facility] Radiology Nuclear Medicine and PET [address] [address] Scheduled Referrals Name Type Priority Associated Diagnoses Order Schedule AMB CONS/FOLLOW UP OUTPATIENT CARE MANAGEMENT - [facility] Outpatient Referral Routine Consult Encounter for screening involving social determinants of health (SDoH) Expected: 11/22/2023 (Approximate), Expires: 11/14/2024 documented as of this encounter Visit Diagnoses Diagnosis Encounter for screening involving social determinants of health (SDoH)- Primary documented in this encounter Care Teams Booth Supervisor Relationship Specialty Start Date End Date Carrington Calderon MD [address] [address] PCP - General Internal Medicine - Primary Care 12/09/20 Amrita Asencio Barge Engineer 04/21/23 01/03/24 Carmelo Hendrickson Coordinator 12/01/23 Amrita Asencio Barge Engineer 01/04/24 documented as of this encounter
--- OUTSIDE RECORDS SUMMARY | 2024-02-06 13:30 | XMS_ITS | Encounter Summary ---
Author Organization [facility] Address [address] [place] [address] Care Team Providers Care Cutter Helper Name Role Phone Carrington Calderon MD Primary Care Provi anders NelsyClayAbigail Unavailable Encounter Details Date Type Department Care Team (Late st Contact Info) Description 11/11/2023 13:30 EDT Phlebotomy Only [facility] Laboratory Services - [address] [address] Rice Drier Operator, [facility] Abnormal thyroid blood test; Encounter for screening for other viral diseases Social History Tobacco Use Types Packs/Day Years Used Date Smoking Tobacco: Former Cigarettes 0.5 13.2 S tarted: 11/10/2010 Smokeless Tobacco: Never Comments:06/13/20 actively try ing to quit about 5-8 cigs/day Alcohol Use Standard Drinks/Week Comments Yes 0 (1 standard drink = 0.6 oz pur e alcohol) rarely [facility] Utilities Answer Date Recorded In the past 12 months has [employer], gas, oil, or water [employer] threatened to shut off services in your [...] in the past 12 m [facility], were you homeless or [...] [facility] Adult Primary Care - [address] [address] Carrington Calderon MD 1 [facility] 1 [place] [address] 02/27/2024 8:30 EDT Telemedicine [facility] Sleep Program - [address] [phone] Dwight Colbert [address] [place] [phone] 02/29/2024 10:[address] [facility] Radiology Nuclear Medicine and PET [address] [phone] 02/29/2024 14:[address] [facility] Radiology Nuclear Medicine and PET [address] [address] 03/01/2024 8:[address] [facility] Radiology Nuclear Medicine and PET [address] [address] 03/01/2024 9:[address] [facility] Radiology Nuclear Medicine and PET [address] [phone] documented as of this encounter Procedures Procedure [...] 97 - 169 ng/dL 11/11/2023 17:27 EDT [facility] Blood VENOUS BLOOD / Unknown Venipuncture / Unknown 11/11/2023 13:53 EDT 11/11/2023 13:55 EDT Carrington Calderon MD CHEMISTRY & BLOOD GAS ORDERABLES Performing Organization Address City/[facility]/ZIP Co de Phone Number [facility] [address] [place] [address] * T4 FREE (11/11/2023 13:53 EDT) Pathologist [facility] T4, Free 1.1 0.8 - 2.2 ng/dL 11/11/2023 16:08 EDT [facility] Blood VENOUS BLOOD / Unknown Venipuncture / Unknown 11/11/2023 13:53 EDT 11/11/2023 13:55 EDT Carrington Calderon MD CHEMISTRY & BLOOD GAS ORDERABLES [facility] [address] [place] [address] * HIV 1/2 ANTIGEN AND ANTIBODY, 4TH GENERATION (11/11/2023 13:53 EDT) Pathologist [facility] HIV 1 and 2 Antibody/p24 Antigen, 4th Generation Negative Negative 11/11/2023 17:04 EDT [facility] Comment:If acute HIV-1 infec tion is suspected in a high risk patient, submit plasma specimen for HIV-1 RNA quantitation test. Blood VENOUS BLOOD / Unknown Venipuncture / Unknown 11/11/2023 13:53 EDT 11/11/2023 13:55 EDT Narrative [facility] - 11/11/2023 17:04 EDT Fourth Generation assay performed on the Siemens CV Ingenuityaur XPT. Carrington Calderon MD IMMUNOLOGY AND SEROLOGY ORDERABLES Performing Organization Address City/[facility]/ZIP Co de Phone Number [facility] [address] [place] [address] * HEPATITIS C AB W REFLEX TO HCV RNA BY PCR (11/11/2023 13:53 EDT) Hep C Antibody Negative Negative 11/11/2023 17:03 EDT [facility] Blood VENOUS BLOOD / Unknown Venipuncture / Unknown 11/11/2023 13:53 EDT 11/11/2023 13:55 EDT Carrington Calderon MD CHEMISTRY & BLOOD GAS ORDERABLES Performing Organization Address [facility] Co de Phone Number [facility] [address] [place] [phone] * HEPATITIS B PROFILE (11/11/2023 13:53 EDT) Hep B Surface Ag Negative Negative 11/11/19 17:04 EDT [facility] Hep B Surface Ab, Quantitative <3.1 See Note mIU/mL 11/11/2023 17:04 EDT [facility] Comment: Reference Range for Hep B Surface Ab, Quant: Positive: >= 10.0 mIU/mL Negative: ??< 10.0 mIU/mL Patient is presumed to not be immune to infection with Hepatitis B Virus. Hep B Surface Ab, Qualitative Negative See Note 11/11/2023 17:04 EDT [facility] Comment: Reference Range for Hep B Surface Ab, Qual: Unvaccinated: ??Negative Vaccinated: ??Positive Hepatitis B Core Ab, Total Negative Negative 11/11/2023 17:04 EDT [facility] Blood VENOUS BLOOD / Unknown Venipuncture / Unknown 11/11/2023 13:53 EDT 11/11/2023 13:55 EDT Carrington Calderon MD CHEMISTRY & BLOOD GAS ORDERABLES Performing Organization Address [facility] Co de Phone Number [facility] [address] [place], [place] [address] * (ABNORMAL) THYROID CASCADE (11/11/2023 13:53 EDT) TSH 0.37(L) 0.47 - 4.68 mIU/L 11/11/2023 15:38 EDT [facility] Blood VENOUS BLOOD / Unknown Venipuncture / Unknown 11/11/2023 13:53 EDT 11/11/2023 13:55 EDT Narrative [facility] - 11/11/2023 15:38 EDT NOTE: The results of this assay can be falsely lowered due to the consumption of Biotin. Carrington Calderon MD CHEMISTRY & BLOOD GAS ORDERABLES Performing Organization Address [facility] Co de Phone Number [facility] [address] [place] [phone] documented in this encounter Visit Diagnoses Diagnosis Abnormal thyroid blood test Nonspecific abnormal results of thyroid function study Encounter for screening for other viral diseases documented in this encounter Care Teams Cutter Helper Relationship Specialty Start Date End Date Carrington Calderon MD 1 [facility] 1 [place] [address] PCP - General Internal Medicine - Primary Care 12/09/20 Abigail Díaz Chemical Analytical Sampler 04/21/23 01/03/24 documented as of this encounter
--- OUTSIDE RECORDS SUMMARY | 2024-02-06 13:30 | XMS_ITS | Encounter Summary ---
Author Organization [facility] Address [address] [place] [address] Care Team Providers Care Authorization Nurse Name Role Phone Carrington Calderon MD Primary Care Provi anders Abigail Díaz Unavailable [phone] Carmelo Hendrickson Unavailable Unavailable Encounter Details Date Type Department Care Team (Late st Contact Info) Description 12/02/2023 Patient Outreach [facility] Adult Primary Care - [place] [address] [place], [place] [id number] Carmelo Hendrickson Social History Tobacco Use Types Packs/Day Years Used Date Smoking Tobacco: Every Day Cigarettes 0.5 13.2 Started: 11/10/2010 Smokeless Tobacco: Never Comments:06/13/20 actively try ing to quit about 5-8 cigs/day Alcohol Use Standard Drinks/Week Comments Yes 0 (1 standard drink = 0.6 oz pur e alcohol) rarely [facility] Utilities Answer Date Recorded In the past 12 months has [employer], gas, oil, or water [employer] threatened to shut off services in your [...] * Carmelo Hendrickson - 12/02/2023 1238 EDT [employer] [facility] Inspector [employer] Initial Note Referred by: Abigail Díaz [facility] PCP: Carrington Calderon Encounter type: Telephone Reason for Referral: [employer] and other economic programs Notes: This Inspector [employer] (RC) called Stella and talked to her about signing up for [employer], as well as about health insurance. Stella reports a change in her family's employment situation and this RC walked her through how to sign up for health insurance through the [place] [employer] website given a potential special enrollment period [...] [facility] - [address] [id number] Carrington Calderon MD [address] [phone] 02/27/2024 8:30 EDT Telemedicine [facility] Sleep Program [address] [phone] Dwight Colbert [address] [place] [phone] 02/29/2024 10:30 EDT Appointment [facility] Radiology Nuclear Medicine and PET [address] [phone] 02/29/2024 14:30 EDT Appointment [facility] Radiology Nuclear Medicine and PET [address] [id number] 03/01/2024 8:00 EDT Appointment [facility] Radiology Nuclear Medicine and PET [address] [id number] 03/01/2024 9:30 EDT Appointment [facility] Radiology Nuclear Medicine and PET [address] [id number] documented as of this encounter Visit Diagnoses Not on filedocumented in this encounter Care Teams Authorization Nurse Relationship Specialty Start Date End Date Carrington Calderon MD [address] [phone] PCP - General Internal Medicine - Primary Care 12/09/20 Abigail Díaz Nuclear Equipment Operator 04/21/23 01/03/24 Carmelo Hendrickson Coordinator 12/01/23 documented as of this encounter
--- OUTSIDE RECORDS SUMMARY | 2024-02-06 13:30 | XMS_ITS | Encounter Summary ---
Author Organization [facility] Address [address] [place] [address] Care Team Providers Care Medical Office Technology Instructor Name Role Phone Carrington Calderon MD Primary Care Provi anders Carmelo Hendrickson Unavailable Unavailable Abigail Díaz Unavailable [phone] Reason for Visit * Reason Onset Date Comments Medication Management 01/06/2024 Encounter Details Date Type Department Care Team (Late st Contact Info) Description 01/06/2024 Telephone [facility] Adult Primary Care - [address] [address] Carrington Calderon MD 1 [facility] Level [address] [place] [phone] Medication Management Social History Tobacco Use Types Packs/Day Years Used Date Smoking Tobacco: Every Day Cigarettes 0.5 13.2 Started: 11/10/2010 Smokeless Tobacco: Never Comments:06/13/20 actively try ing to quit about 5-8 cigs/day Alcohol Use Standard Drinks/Week Comments Yes 0 (1 standard drink = 0.6 oz pur e alcohol) rarely [facility] Utilities Answer Date Recorded In the [...] any time in the past 12 m [facility], were you homeless or living in [...] Dispensed Refills Start Date End Da te lancetsIndications:Type 2 diabetes mellitus with diabetic polyneuropathy, with long-term current use of insulin ([facility]) Brand: Freestyle, check glucose 4 times per day for insulin dose titration 100 Each 11 01/06/2024 blood glucose test stripsIndications:Type 2 diabetes mellitus with diabetic polyneuropathy, with long-term current use of insulin ([facility]) Brand: Freestyle Lite, check glucose 4 times per day for insulin dose titration 100 Each 01/06/2024 blood glucose meterIndications:Type 2 diabetes mellitus with diabetic polyneuropathy, with long-term current use of insulin ([facility]) Brand: Freestyle Lite 1 Each 01/06/2024 documented in this encounter Miscellaneous Notes * Telephone Encounter - Carrington Calderon MD - 01/06/2024 1234 EDT Madhuri Garsia ordered. Abigail- I see it's been hard to engage her. May be worth another try, particularly to help with getting a CGM, unless you think that's more in [facility]' territory. Thanks. * Telephone Encounter - Geneva Pederson, MARCELO - 01/06/2024 1128 EDT Unable to reach patient. Routing to Dr. Calderon to review/advise on alternative in the meantime. GENEVA PEDERSNO RN 01/06/2024 11:29 * Telephone Encounter - Berenice Mahan - 01/06/2024 1028 EDT Patient is calling to request an order for blood glucose monitor (finger stick not CGM). They can not afford the dexcom sensors at this time and patient needs another way to check her blood sugar. Please send script for meter, lancets, and test strips to [facility] pharmacy in [place]. Fermin said patient is currently in the hospital now because her blood sugars have been above 400. documented in this encounter Plan of Treatment Upcoming Encounters Date Type Department Care Team (Late st Contact Info) Description 02/21/2024 9:45 EDT Office Visit [facility] Adult Primary Care - [address] [phone] Carrington Calderon MD [address] [phone] 02/27/2024 8:30 EDT Telemedicine [facility] Sleep Program - [address] [phone] Dwight Colbert [address] [place] [address] 02/29/2024 10:30 EDT [facility] Rad[facility] Nuclear Medicine and PET - [address] [phone] 02/29/2024 14:30 EDT [facility]ointment [facility] Radiology Nuclear Medicine and PET - [address] [phone] 03/01/2024 8:00 EDT Appointment [facility] Radiology Nuclear Medicine and PET - [address] [phone] 03/01/2024 9:30 EDT [facility]ment [facility] PET [address] [phone] documented as of this encounter Visit Diagnoses Diagnosis Type 2 diabetes mellitus with diabetic polyneuropathy, with long-term current use of insulin ([facility]) ([facility])- Primary documented in this encounter Care Teams Medical Office Technology Instructor Relationship Specialty Start Date End Date Carrington Calderon MD 1 [facility] [address] [place] [phone] PCP - General Internal Medicine - Primary Care 12/09/20 Carmelo Hendrickson Coordinator 12/01/23 Abigail Díaz Heating Unit Mechanic 01/04/24 documented as of this encounter
--- OUTSIDE RECORDS SUMMARY | 2024-02-06 13:30 | XMS_ITS | Referral Summary ---
Author Organization [facility] Address [address] [place] [address] Care Team Providers Care Animal Anatomy Teacher Name Role Phone Carrington Calderon MD Primary Care Provi anders Carmelo Hendrickson Unavailable Unavailable Abigail Díaz Unavailable Encounters Date Type Department Care Team Description 02/06/2024 Telephone [facility] - [place] [address] [place] [address] Cedric Yoon MD Neck Pain 02/06/2024 Telephone [facility] - [place] [address] [place] [address] Cedric Yoon MD Torticollis 01/18/2024 Refill [facility] Primary Care [address] [phone] Carrington Calderon MD Medications Refill 01/06/2024 Lab Requisition [facility] Pathology & Laboratory Medicine [address] [address] Outr Resulting Lab, Provider 01/06/2024 Telephone [facility] Primary [address] [address] Carrington Calderon MD Medication Management 01/03/2024 Lab Requisition [facility] Pathology & Laboratory Medicine [address] [address] Madelin Ojeda MD Encounter for other general examination 12/20/[address] [address] Carrington Calderon MD Medications Refill 12/15/2023 Patient Outreach [address] [address] Abigail Díaz 12/14/2023 Patient Outreach [address] [address] Carmelo Hendrickson 12/09/2023 Orders Only [facility] Radiology - [address] [address] Teresita Fitzpatrick MD 12/07/2023 Patient Outreach [address] [address] Carmelo Hendrickson 12/02/2023 Patient Outreach [facility] Primary [address] [address] Emeka, Carmelo 12/02/2023 Patient Outreach [address] [address] Abigail Díaz 12/01/2023 Patient Outreach [facility] Primary [address] [address] Carmelo Hendrickson 12/01/2023 15:45 EDT Office Visit [address] [address] Nimisha Clifton NP Neuropathic diabetic ulcer of foot (HCC-CMS) (Primary Dx); Pre-op exam 11/22/2023 Telephone [facility] Primary [address] [address] Carrington Calderon MD Results 11/18/2023 Community Health Team [facility] [address] [address] Care Management, [facility] 11/16/2023 11:00 EDT Telemedicine [facility] Gastroenterology - [place] [address] [place] [address] Scott Arzate MD Cyclic vomiting syndrome (Primary Dx) 11/15/2023 Patient Outreach [facility] [address] [address] Abigail Díaz Encounter for screening involving social determinants of health (SDoH) (Primary Dx) 11/11/2023 13:30 EDT Phlebotomy Only [facility] Laboratory Services - [address] [address] Latrine Cleaner, [facility] Abnormal thyroid blood test; Encounter for screening for other viral diseases 11/11/2023 13:00 EDT Office Visit [facility] [address] [address] Carrington Calderon MD Type 2 diabetes mellitus with diabetic polyneuropathy, with long-term current use of insulin ([facility]) ([facility]) (Primary Dx); Migraine with aura and without status migrainosus, not intractable; Anxiety and depression; Cyclic vomiting syndrome; Diabetic ulcer of left midfoot associated with type 2 diabetes mellitus, limited to breakdown of skin ([facility]); Primary insomnia; Abnormal thyroid blood test; Encounter [...] with long-term current use of insulin ([facility]) Inject 1 Each into the skin [...] with long-term current use of insulin ([facility]) Inject 44 Units into the skin at bedtime. 36 mL 4 4 Active empagliflozin (JARDIANCE) 25 mg tabletIndications: Type 2 diabetes mellitus with diabetic polyneuropathy, with long-term current use of insulin ([facility]) Take 1 Tablet by mouth daily. 90 Tablet 4 4 Active SITagliptin phosphate (JANUVIA) 100 mg tabletIndications: Type 2 diabetes mellitus with diabetic polyneuropathy, with long-term current use of insulin ([facility]) Take 1 Tablet by mouth daily. 90 Tablet 4 4 Active metoclopramide HCl (REGLAN) 10 mg tablet Take 1 Tablet by mouth 3 times daily before meals. Starting 3 days before menses and stopping after end of period 270 Tablet 3 4 Active gabapentin (NEURONTIN) 300 mg capsuleIndications :Diabetic polyneuropathy associated with type 2 diabetes mellitus ([facility]) Take 1 Capsule by mouth every morning AND 4 Capsules at bedtime. 450 Capsule 4 4 Active SUMAtriptan (IMITREX) 20 mg/actuation nasal spray USE 1 SPRAY(S) INTO RIGHT NOSTRIL NEEDED FOR MIGRAINE HEADACHE 6 Each 1 4 Active Blood-Glucose Transmitter (Jipio G6 TRANSMITTER) deviceIndications: Type 2 diabetes mellitus with diabetic polyneuropathy, with long-term current use of insulin ([facility]) Inject 1 Each into the skin every 3 months. 1 Each 4 4 Active HUMALOG KWIKPEN INSULIN 100 unit/mL injectable penIndications:Typ e 2 diabetes mellitus with diabetic polyneuropathy, with long-term current use of insulin ([facility]) 8 units with breakfast, 15 units [...] with long-term current use of insulin ([facility]) Brand: Freestyle Lite 1 Each 4 Active blood glucose test stripsIndications: Type 2 diabetes mellitus with diabetic polyneuropathy, with long-term current use of insulin ([facility]) Brand: Freestyle Lite, check glucose 4 times per day for insulin dose titration 100 Each 4 Active lancetsIndications :Type 2 diabetes mellitus with diabetic polyneuropathy, with long-term current use of insulin ([facility]) Brand: QuantaSol, check glucose 4 times per day for [...] Confirmed patient has Traditional Medicaid now. TCN: [id number] Category: P2 Garfield Healy 06/10/2020 19:11 Problem Noted Date Diagnosed Date Tobacco use 12/21/2021 Skin infection 12/21/2021 Pannus, abdominal 12/21/2021 Overview: - as of 01/2022, does not meet criteria for surgical intervention (see 01/29/22 note) Neuropathic diabetic ulcer of foot ([facility]) Gastroparesis 08/10/2020 Overview: - Confirmed on [...] with long-term current use of insulin ([facility]) 06/05/2020 Overview: - Dx approx age 25, [...] approx 2012 - had SI, treated at [facility]. Marijuana prn to help with stress/anxiety sx -Describes paradoxical effect of citalopram, reportedly resulting in the above admission at [facility] Migraine with aura and witho ut status [...] Overview: Added automatically from request for surgery [id number] of unknown anatomic location 06/20/2020 06/27/2020 Overview: Clinical Group: [facility] Patient HPI: Cristy Luo is an 35 y.o. , patient with history of ectopic and positive HCG during post operative period for unrelated procedure. Reported cramping to [facility] nurse on 06/19. LMP: End of the first week of May Rh status: B- Rhogam: Given by [facility] 06/20/20 Desired : Unknown Ectopic risk factors: hx of ectopic pregnancies and five D&C's . 10/2018: Interstitial treated w/ MTX. HCGs Lab Results Component Value Date HCGPREG 49 (H) 06/25/2020 HCGPREG 111 (H) 06/23/2020 HCGPREG 152 (H) 06/21/2020 HCGPREG 108 (H) 06/19/2020 HCGPREG 2,954 (H) 10/11/2019 HCGPREG 707 (H) 09/02/2019 HCGPREG 316 (H) 08/31/2019 Plan: 06/20/2020: US today and given RhoGham by [facility]. Place in [place] per MD Esteban [...] 11am), precautions & contact #'s give to Stella. Suyapa, MARCELO 06/23/20: ED today for VB, U/S essentially the same, Plan per Azucena Mederos & Chantale: repeat HCG 06/25 & U/S 06/25 in [facility]. MARCELO Dale 06/25/20: U/S results - [...] Overview: Added automatically from request for surgery [id number] Type 2 diabetes mellitus wit h left diabetic foot ulcer ([facility]) 05/03/2020 03/27/2021 Osteomyelitis of great toe o f left foot ([facility]) 03/12/2020 06/11/2021 Diabetic foot ulcer associat ed with diabetes mellitus due to underlying condition ([facility]) 03/07/2020 03/27/2021 Diabetic foot infection ([facility]) 03/06/2020 06/11/2021 Diabetic foot ulcer ([facility]) 03/06/2020 06/11/2021 Cellulitis of great toe of left foot 11/26/2019 06/11/2021 Encounter for sterilization 11/20/2019 06/20/2020 Overview: Added automatically from request for surgery [id number] Missed 10/12/2019 10/15/2019 Overview: Clinical Group: ED [...] PCR results found No results found for: [id number] HgA1c [ ] 1T pending [ ] [...] diabetes. Last Assessment & Plan: - Reviewed [facility] group practice and clinic flow. - [...] Beta HCG = 1652.8 mIU/ml @ [facility] 11/10/2018: Quant Beta HCG, Preg 1,117 mIU/ml* (Ref range: <5 mIU/ml) 11/21/18: Quant Beta HCG 299.98 mIU/mL at [facility] (ref range <2.39) 12/03/18: Quant Beta HCG, 41.94 mIU/ml at [facility] 12/13/18: Quant Beta HCG, 13.63 mIU/ml at [facility] Plan: 10/24/18: per Dr. Coronado repeat [...] go to lab 11/08. States will go 11/09/18.[facility] 11/10/18: Plan per Dr. Almeida, repeat HCG in 1 week (11/17). Results & plan reviewed with Cristy. MARCELO Dale 11/21/18 Pt plans on going to [facility] today. [facility] 11/21/18. [facility] 299.98. Repeat in 1 week. Pt would like to go 11/27/18([facility]) as off from work [facility] 12/01/18: LVM for pt to repeat lab work kimberly. This was the fourth call. MARCELO WEBB 12/03/18: Per Dr. Kenyon, repeat HCG 12/10. LVM for pt with plan (count as 1st attempt). MARCELO WEBB 12/11/18: LVM (second call) re: HCG due. MARCELO Dale 12/12/18: Spoke with Cristy, she will get HCG drawn 7 am. NOS MFM consult, will be rescheduled. MRACELO Dale 12/15/18: Plan per Dr. Gill repeat HCG in one week (12/20), MFM CON 03/02/19. LVM for Cristy with plan. MARCELO Dale 12/25/18: Per [facility] lab last HCG was 12/13, NOS for 12/20, LVM X3, letter sent, will remove from [employer] Book.MARCELO Dale Spontaneous miscarriage 09/04/2015/08/2018 Overview: 02/18, 08/19. Followed by Dr. López/Affiliates in [facility] Type 2 diabetes mellitus ([facility]) 09/03/2015 06/11/2021 Overview: - Dx approx [...] = 0.6 oz pur e alcohol) rarely [employer] Answer Date Recorded In the past 12 months has [employer], oil, or water [employer] threatened to shut off services in your [...] any time in the past 12 m [facility], were you homeless or living in [...] Visit [facility] - [place] [address] [place], [place] [address] Carrington Calderon MD 1 [facility] Level [address] [place] [id number] 02/27/2024 8:30 EDT Telemedicine [facility] Sleep Program - [address] [place] [address] [place], [place] [address] ColbertDwight garner [address] [place] [address] 02/29/2024 10:30 EDT [facility] Rad[facility] Nuclear Medicine and PET - [address] [phone] 02/29/2024 14:30 EDT Appointment [facility] Radiology Nuclear Medicine and PET - [address] [phone] 03/01/2024 8:00 EDT Appointment [facility] Radiology Nuclear Medicine and PET - [address] [phone] 03/01/2024 9:30 EDT Appointment [facility] Radiology Nuclear Medicine and PET [address] [phone] Procedures Procedure Name Priority Date/Time Associated Diagnosis [...] with long-term current use of insulin ([facility]) LIPID PROFILE (INCLUDES CHOLESTEROL, TRIGLYCERIDES, HDL, LDL) Routine 11/28/2019 15:56 EDT Type 2 diabetes mellitus with other specified complication, unspecified whether long term care social worker insulin use ([facility]) URINE AIAXTCN-PV-KGLIAOBE NE RATIO (ACR) Routine 11/28/2019 15:56 EDT Type 2 diabetes mellitus with other specified complication, unspecified whether [facility] insulin use ([facility]) from Last 3 Months or Most Recently Relevant to Health Maintenance Results * (ABNORMAL) OSMOLALITY (01/06/2024 11:15 EDT) Osmolality, Serum 308(H) 275 - 295 mOsm/kg 01/06/2024 17:33 EDT [facility] Blood VENOUS BLOOD / Unknown 01/06/2024 11:15 EDT 01/06/2024 17:04 EDT Provider Outr Resulting Lab CHEMISTRY & BLOOD GAS ORDERABLES Performing Organization Address [facility]/State/ZIP Co de Phone Number [facility] [address] [place] [id number] * SURGICAL PATHOLOGY (01/02/2024 8:23 EDT) Note to Patient The following pathology results have been interpreted by your pathologist and may be available to you before your health provider has had the opportunity to review them. Please allow time for your provider to receive these results and explore management options, if applicable. 01/09/2024 11:58 EDT [facility] Final Diagnosis A. FOOT, LEFT, TRANSMETATARSAL AMPUTATION: - Skin and soft tissue with marked acute inflammation and necrosis involving the resection margin. - Underlying bone with acute osteomyelitis. - Two of five bone resection margins with extensive acute osteomyelitis (see comment). 01/09/2024 11:58 [facility] Diagnosis Comment Correlate with microbiology studies. 01/09/2024 11:58 [facility] Attestation By the signature below, the attending physician certifies that they have 1) personally conducted a gross and/or microscopic examination of the described specimen(s), and/or personally interpreted the results of laboratory testing of the described specimen(s), and 2) personally rendered or confirmed the above diagnosis. 01/09/2024 11:58 [facility] at 1158 Clinical History Diabetic foot ulcer 01/09/2024 11:58 [facility] Gross Description A. Received in [...] aggregate 8.0 x 3.5 x 2.5 cm. Histology Supervisor sections are submitted as follows: BLOCK SHIELDS A1- plantar ulcer to closest skin and soft tissue margin of resection (inked blue), perpendicular A2- bone underlying plantar ulcer, following acid decalcification A3-A4- separately received transected bone margins, en face, following acid decalcification (differentially inked) EUNICE MAE(ASCP) 01/03/2024 10:29 01/09/2024 11:58 EDT [facility] Performing Lab [facility] 11:58 EDT [facility] Scanned Images 01/09/2024 11:58 EDT [facility] Tissue TRAUMATIC AMPUTATION OF UPPER LIMB / Unknown 01/02/2024 8:23 EDT 01/03/2024 8:00 EDT Madelin Ojeda MD PATHOLOGY ORDERABLES Performing Organization Address City/[facility]/ZIP Co de Phone Number [facility] [address] [place] [address] * (ABNORMAL) THYROID CASCADE (11/11/2023 13:53 EDT) TSH 0.37(L) 0.47 - 4.68 mIU/L 11/11/2023 15:38 EDT [facility] Blood VENOUS BLOOD / Unknown Venipuncture / Unknown 11/11/2023 13:53 EDT 11/11/2023 13:55 EDT Narrative [facility] - 11/11/2023 15:38 EDT NOTE: The results of this assay can be falsely lowered due to the consumption of Biotin. Carrington Calderon MD CHEMISTRY & BLOOD GAS ORDERABLES Performing Organization Address [facility]/ZIP Co de Phone Number [facility] [address] [place] [address] * HEPATITIS C AB W REFLEX TO HCV RNA BY PCR (11/11/2023 13:53 EDT) Hep C Antibody Negative Negative 11/11/2023 17:03 EDT [facility] Blood VENOUS BLOOD / Unknown Venipuncture / Unknown 11/11/2023 13:53 EDT 11/11/2023 13:55 EDT Carrington Calderon MD CHEMISTRY & BLOOD GAS ORDERABLES Performing Organization Address City/[facility]/ZIP Co de Phone Number [facility] [address] [place] [address] * HEPATITIS B PROFILE (11/11/2023 13:53 EDT) Hep B Surface Ag Negative Negative 11/11/19 17:04 EDT [facility] Hep B Surface Ab, Quantitative <3.1 See Note mIU/mL 11/11/2023 17:04 EDT [facility] Comment: Reference Range for Hep B Surface Ab, Quant: Positive: >= 10.0 mIU/mL Negative: ??< 10.0 mIU/mL Patient is presumed to not be immune to infection with Hepatitis B Virus. Hep B Surface Ab, Qualitative Negative See Note 11/11/2023 17:04 EDT [facility] Comment: Reference Range for Hep B Surface Ab, Qual: Unvaccinated: ??Negative Vaccinated: ??Positive Hepatitis B Core Ab, Total Negative Negative 11/11/2023 17:04 EDT [facility] Blood VENOUS BLOOD / Unknown Venipuncture / Unknown 11/11/2023 13:53 EDT 11/11/2023 13:55 EDT Carrington Calderon MD CHEMISTRY & BLOOD GAS ORDERABLES Performing Organization Address [facility] Co de Phone Number [facility] [address] [place] [address] * HIV 1/2 ANTIGEN AND ANTIBODY, 4TH GENERATION (11/11/2023 13:53 EDT) HIV 1 and 2 Antibody/p24 Antigen, 4th Generation Negative Negative 11/11/2023 17:04 EDT [facility] Comment:If acute HIV-1 infec tion is suspected in a high risk patient, submit plasma specimen for HIV-1 RNA quantitation test. Blood VENOUS BLOOD / Unknown Venipuncture / Unknown 11/11/2023 13:53 EDT 11/11/2023 13:55 EDT Narrative [facility] - 11/11/2023 17:04 EDT Fourth Generation assay performed on the Siemens Centaur XPT. Carrington Calderon MD IMMUNOLOGY AND SEROLOGY ORDERABLES Performing Organization Address City/[facility]/ZIP Co de Phone Number [facility] [address] [place], [place] [id number] * T3, TOTAL (11/11/2023 13:53 EDT) T3, Total 137 97 - 169 ng/dL 11/11/2023 17:27 EDT [facility] Blood VENOUS BLOOD / Unknown Venipuncture / Unknown 11/11/2023 13:53 EDT 11/11/2023 13:55 EDT Carrington Calderon MD CHEMISTRY & BLOOD GAS ORDERABLES Performing Organization Address [facility] Co de Phone Number [facility] [address] [place] [address] * T4 FREE (11/11/2023 13:53 EDT) T4, Free 1.1 0.8 - 2.2 ng/dL 11/11/2023 16:08 EDT [facility] Blood VENOUS BLOOD / Unknown Venipuncture / Unknown 11/11/2023 13:53 EDT 11/11/2023 13:55 EDT Carrington Calderon MD CHEMISTRY & BLOOD GAS ORDERABLES Performing Organization Address [facility]/ZIP Co de Phone Number [facility] [address] [place], [place] [id number] * PAP TEST (06/27/2023 16:00 EST) Specimens A. Cervix and/or Endocervix , ThinPrep Imaging System with Manual Evaluation 07/13/2023 16:25 EST [facility] Specimen Adequacy Satisfactory for Evaluation - transformation zone component absent 07/13/2023 16:25 EST [facility] General Categorization Negative for intraepithelial lesion or malignancy 07/13/2023 16:25 [facility] Attestation . 07/13/2023 16:25 [facility] at 1625 Clinical History screening 07/13/19 24 16:25 [facility] HPV The result for the Human Papillomavirus (HPV) Detection-High Risk Types is Negative. No E6 or E7 mRNA is detected from HPV types 16,18,31,33,35,39 ,45,51,52,56,58,5 9,66, and 68 by briar wood sorter mediated amplification.Lorena ting was performed on specimen [id number] and was resulted on 07/13/2023 1625 EST by JANET, LAB INSTRUMENT RESULTS IN 07/13/2023 16:25 [facility] Performing Lab [facility] 07/13/2023 16:25 [facility] Scanned Images 07/13/2023 16:25 [facility] Pap Test CERVIX UTERI STRUCTURE / Unknown 06/27/2023 16:00 EST 06/27/2023 16:00 EST Carrington Calderon MD PATHOLOGY O RDERABLES Performing Organization Address City/State/[facility] Co de Phone Number [facility] [address] [place] [address] * (ABNORMAL) HEMOGLOBIN A1C (03/14/2023 15:19 EDT) Hemoglobin A1c 8.3(H) <5.7 % 03/14/2023 22:02 EDT [facility] Comment: Glycemic Status References: Normal: ??<5.7% Pre-Diabetes: ??5.7% - 6.4% Diagnostic of Diabetes: ??> or = 6.5% (if confirmed) Est Avg Glucose 192 mg/dL 22:02 EDT [facility] Comment:The eAG represents t he A1c result expressed as average glucose in mg/dL. Blood VENOUS BLOOD / Unknown Venipuncture / Unknown 03/14/2023 15:19 EDT 03/14/2023 15:19 EDT Carrington Calderon MD CHEMISTRY & BLOOD GAS ORDERABLES Performing Organization Address [facility] de Phone Number [facility] [address] [place] [address] * (ABNORMAL) ALBUMIN, URINE (11/28/2019 15:56 EDT) Albumin, Urine 11.3 See Note mg/dL 2019 16:47 EDT [facility] Comment: NOTE: Reference range not established Creatinine, Urine 143.1 See Note mg/dL 11/28/2019 16:47 EDT [facility] Comment: NOTE: Reference range not established Lab Urine Albumin to Creatinine Ratio 79(H) <30 ug/mg Creatinine 11/28/2019 16:47 EDT [facility] Comment: Urine Albumin/Creatinine Ratio: Normal: <30 ug/mg Creatinine Moderately increased albuminuria: 30-300 ug/mg Creatinine Severley increased albuminuria: >300 ug/mg Creatinine Urine URINE SPECIMEN OBTAINED BY CLEAN CATCH PROCEDURE / Unknown Urine Collect / Unknown 11/28/2019 15:56 EDT 11/28/2019 15:56 EDT Tonja Alejandro PA-C CHEMISTRY & BLOOD GAS ORDERABLES Performing Organization Address [facility] Co de Phone Number [facility] [address] [place] [address] * LIPID PROFILE (INCLUDES CHOLESTEROL, TRIGLYCERIDES, HDL, LDL) (11/28/2019 15:56 EDT) Cholesterol 179 See Note mg/dL 11/28/2019 17:12 EDT [facility] Comment: Acceptable: ?<200 mg/dL Borderline High: 200-239 mg/dL High: ?> or = 240 mg/dL HDL 38 See Note mg/dL 11/28/2019 17:12 EDT [facility] Comment: Low: ? <40 mg/dL Normal: ??40-60 mg/dL High: ?>60 mg/dL LDL, Calculated 61 See Note mg/dL 11/28/2019 17:12 [facility] Comment: Optimal: ? <100 mg/dL Near Optimal: ?100-129 mg/dL Borderline High: 130-159 mg/dL High: ?160-189 mg/dL Very High: ? > or = 190 mg/dL Triglyceride 398 See Note mg/dL 11/28/2019 17:12 [facility] Comment: Normal: ? <150 mg/dL Borderline High: ??150 - 199 mg/dL High: ? 200 - 499 mg/dL Very High: ?> or = 500 mg/dL Chol/HDL Ratio 4.7 See Note 11/28/2019 17:12 [facility] Comment: No reference range has been established for CHOL/HDL ratio. Non HDL Cholesterol 141 See Note mg/dL 11/28/2019 17:12 [facility] Comment: Desirable: ?<130 mg/dL Borderline High: ??130-159 mg/dL High: ? 160-189 mg/dL Very High: ?> or = 190 mg/dL Blood VENOUS BLOOD / Unknown Venipuncture / Unknown 11/28/2019 15:56 EDT 11/28/2019 15:56 EDT Tonja Alejandro PA-C CHEMISTRY & BLOOD GAS ORDERABLES [facility] [address] [place] [address] from Last 3 Months or Most Recently Relevant to Health Maintenance Administered Medications Advance Directives For more information, please contact: [phone] Documents on File Type Date Recorded Patient Histology Supervisor Expl anation Advance Directive 11/23/2022 10:36 Appt [...] participated in the discussion? Patient Care Teams Animal Anatomy Teacher Relationship Specialty Start Date End Date Carrington Calderon MD 1 [facility] 1 [place] [address] PCP - General Internal Medicine - Primary Care 12/09/20 Carmelo Hendrickson Coordinator 12/01/23 Abigail Díaz Solutions Architect 01/04/24
--- OUTSIDE RECORDS SUMMARY | 2024-02-06 13:30 | XMS_ITS | Encounter Summary ---
Author Organization [facility] Address [address] [place] [address] Care Team Providers Care Central Office Repairer Supervisor Name Role Phone Carrington Calderon MD Primary Care Provi anders Abigail Díaz Unavailable [phone] Reason for Visit * Reason Comments Follow-up Gastroparesis / 6 Mo [facility] Follow-Up * Consult (Routine) - Receiving Office to Obtain Authorization Specialty Diagnoses / Procedures Referred By Kit goode Referred To Contact Diagnoses Gastroparesis Dale Collier MD [address] [place] [address] [place] [address] [facility] [address] [place] [address] Referral ID Status Reason Start Date Expiration Date Visits Requested Visits Authorized [id number] Receiving Office to Obtain Authorization Specialty Services Required 1 1 Encounter Details Date Type Department Care Team (Late st Contact Info) Description 11/16/2023 11:00 EDT Telemedicine [facility] Gastroenterology - [address] [address] Scott Arzate MD 111 [facility], Level 5 [place] [phone] Cyclic vomiting syndrome (Primary Dx) Social History [...] alcohol) rarely [facility] Utilities Answer Date Recorded In the past 12 months has th e [employer], [employer], oil, or water [employer] threatened to shut off services in your [...] any time in the past 12 m [facility], were you homeless or living [...] lives) Patient location state: Visit Location State: [place] The location of the provider: Office Provider location state: Visit Location State: [place] The following people and their roles were [...] [facility] Adult Primary Care - [address] [phone] Carrington Calderon MD [address] [phone] 02/27/2024 8:30 EDT Telemedicine [facility] Sleep Program - [address] 660371 Dwight Colbert [address] [place] [phone] 02/29/2024 10:30 EDT Appointment [facility] Radiology Nuclear Medicine and PET - [address] [id number] 02/29/2024 14:30 EDT Appointment [facility] Radiology Nuclear Medicine and PET - [address] [address] 03/01/2024 8:00 EDT Appointment [facility] Radiology Nuclear Medicine and PET [address] [address] 03/01/2024 9:30 EDT Appointment [facility] Radiology Nuclear Medicine and PET [address] [address] documented as of this encounter Visit Diagnoses Diagnosis Cyclic vomiting syndrome- Primary Persistent vomiting documented in this encounter Care Teams Central Office Repairer Supervisor Relationship Specialty Start Date End Date Carrington Calderon MD 1 [facility] Level 1 [place] [address] PCP - General Internal Medicine - Primary Care 12/09/20 Abigail Díaz Sports Commentator 04/21/23 01/03/24 documented as of this encounter
--- OUTSIDE RECORDS SUMMARY | 2024-02-06 13:30 | XMS_ITS | Encounter Summary ---
Author Organization [facility] Address [address] [place] [address] Care Team Providers Care Bid Clerk Name Role Phone Carrington Calderon MD Primary Care Provi anders Abigail Díaz Unavailable [phone] Carmelo Hendrickson Unavailable Unavailable Abigail Díaz Unavailable Reason for Referral * Radiology Services (Routine/Next Available) - Authorization Not Required Specialty Diagnoses / Procedures Referred By Contac t Referred To Contact Nuclear Medicine Diagnoses Subclinical hyperthyroidism Procedures NM THYROID UPTAKE AND SCAN NM IODINE I-123 SOD IODIDE EMILY Carrington Calderon MD [address] [place] [phone] [facility] Referral ID Status Reason Start Date Expiration Date Visits Requested Visits Authorized [id number] Authorization Not Required 12/06/2023 1 1 Reason for Visit * Reason Onset Date Comments Results 11/22/2023 Encounter Details Date Type Department Care Team (Late st Contact Info) Description 11/22/2023 Telephone [facility] Adult Primary Care - [address] [address] Carrington Calderon MD [address] [place] [phone] Results Social History Tobacco Use Types Packs/Day Years Used Date Smoking Tobacco: Every Day Cigarettes 0.5 13.2 Started: 11/10/2010 Smokeless Tobacco: Never Comments:06/13/20 actively try ing to quit about 5-8 cigs/day Alcohol Use Standard Drinks/Week Comments Yes 0 (1 standard drink = 0.6 oz pur e alcohol) rarely [facility] Utilities Answer Date Recorded In the [...] Visit [facility] Adult Primary Care - [address] [phone] Carrington Calderon MD [address] [place] [phone] 02/27/2024 8:30 EDT Telemedicine [facility] Sleep Program - [address] 874201 Dwight Colbert [address] [place] [phone] 02/29/2024 10:30 EDT Appointment [facility] Radiology Nuclear Medicine and PET [address] [id number] 02/29/2024 14:30 EDT Appointment [facility] Radiology Nuclear Medicine and PET [address] [id number] 03/01/2024 8:00 EDT Appointment [facility] Radiology Nuclear Medicine and PET [address] [id number] 03/01/2024 9:30 EDT Appointment [facility] Radiology Nuclear Medicine and PET [address] [id number] Scheduled Orders Name Type Priority Associated Diagnoses Orde r Schedule NM THYROID UPTAKE AND SCAN Imaging Routine Subclinical hyperthyroidism Expected: 12/13/2023 (Approximate), Expires: 06/07/2025 documented as of this encounter Visit Diagnoses Diagnosis Subclinical hyperthyroidism- Primary Thyrotoxicosis without mention of goiter or other cause, without mention of thyrotoxic crisis or storm documented in this encounter Care Teams Bid Clerk Relationship Specialty Start Date End Date Carrington Calderon MD 1 [facility] 1 [place] [address] PCP - General Internal Medicine - Primary Care 12/09/20 Abigail Díaz Making Department Preparer 04/21/23 01/03/24 Carmelo Hendrickson Coordinator 12/01/23 Abigail Díaz Making Department Preparer 01/04/24 documented as of this encounter
--- OUTSIDE RECORDS SUMMARY | 2024-02-06 13:30 | XMS_ITS | Encounter Summary ---
Author Organization [facility] Address [address] [place] [address] Care Team Providers Care Clay Caster Name Role Phone Carrington Calderon MD Primary Care Provi anders JunJameyAbigail Williamson Unavailable Reason for Referral * Consult (Routine/Next Available) - Authorization Not Required Specialty Diagnoses / Procedures Referred By Kit goode Referred To Contact Sleep Medicine Diagnoses Primary insomnia Carrington Calderon MD [address] [phone] [facility] [address] [place] [address] Referral ID Status Reason Start Date Expiration Date Visits Requested Visits Authorized [id number] Authorization Not Required Specialty Services Required 11/11/2023 1 1 Question Answer Reason for referral Diffifulty initiating sleep Patient Type: Adult Comments Schedule via phone, no mychart * Referral (Routine/Next Available) - Specialty Report Received Specialty Diagnoses / Procedures Referred By Kit goode Referred To Contact Multidisciplinary Diagnoses Type 2 diabetes mellitus with diabetic polyneuropathy, with long-term current use of insulin ([facility]) Cyclic vomiting syndrome Carrington Calderon MD [address] [phone] [facility] Community Health Team [address] [facility] [address] [place] [address] Referral ID Status Reason Start Date Expiration Date Visits Requested Visits Authorized [id number] Specialty Report Received Specialty Services Required 11/11/2023 1 1 Question Answer Reason for Request: disability paperwork * Referral (Routine/Next Available) - Closed Specialty Diagnoses / Procedures Referred By Contac t Referred To Contact Neurology Diagnoses Migraine with aura and without status migrainosus, not intractable Cyclic vomiting syndrome Carrington Calderon MD [address] [phone] Kierra Almeida DO 1 [facility] 2 [place] [address] Referral ID Status Reason Start Date Expiration Date V isits Requested Visits Authorized [id number] Closed Specialty Services Required 11/11/2023 1 1 Question Answer Reason for Request: cyclic vomiting and migraine Context of referral: Established Problem Reason for referral: Unsure Is headache attributable to an underlying condition? No Is patient actively missing work or school due to headache? Yes Is patient or lactating? No Has patient had a previous OUTSIDE of [facility] neurology evaluation, neuroimaging (MRI or CT of brain or spine) or electrodiagnostic testing (EMG, NCS, EEG)? No Reason for Visit * Reason Comments Follow-up Foot Pain Encounter Details Date Type Department Care Team (Late st Contact Info) Description 11/11/2023 13:00 EDT Office Visit [facility] Adult Primary Care - [place] 1 [place], [place] [address] Carrington Calderon MD [address] [phone] Type 2 diabetes mellitus with diabetic polyneuropathy, [...] 13.2 S tarted: 11/10/2010 Smokeless Tobacco: Never Tobacco [...] polyneuropathy, with long-term current use of insulin ([facility]) 8 units with breakfast, 15 units with lunch/dinner 30 mL 11 11/11/2023 documented in this encounter Progress Notes * Carrington Calderon MD - 11/11/2023 1300 EDT Images from the original note were not included. Primary Care Office Visit Assessment & Plan 1. Type 2 diabetes mellitus with diabetic polyneuropathy, with long-term current use of insulin ([facility]) ([facility]) Reviewed CGM data in detail. [...] CHOLESTEROL, TRIGLYCERIDES, HDL, LDL); Future - URINE [id number] RATIO (ACR); Future 2. Migraine with aura [...] 2 diabetes mellitus, limited to breakdown ofskin ([facility]) Continue care with her tree faller. We did not examine the foot today, [...] that she has continued to see her tree faller in [place] every couple of weeks. She has a persistent foot ulcer on the bottom of her left foot at around the level of the first metatarsal head. She expresses frustration around the fact that this has not healed. She has beentold by her tree faller that it would be hard or impossible [...] [facility] Adult Primary Care - [address] [phone] Carrington Calderon MD [address] [phone] 02/27/2024 8:30 EDT Telemedicine [facility] Sleep Program - [address] [phone] Dwight Colbert [address] [place] [phone] 02/29/2024 10:30 EDT Appointment [facility] Radiology Nuclear Medicine and PET - [address] [id number] 02/29/2024 14:30 EDT Appointment [facility] Radiology Nuclear Medicine and PET - [address] [id number] 03/01/2024 8:00 EDT Appointment [facility] Radiology Nuclear Medicine and PET - [address] [id number] 03/01/2024 9:30 EDT Appointment [facility] Radiology Nuclear Medicine and PET - [address] [address] Scheduled Orders Name Type Priority Associated Diagnoses Orde r Schedule HEMOGLOBIN A1C Lab Routine Type 2 diabetes mellitus with diabetic polyneuropathy, with long-term current use of insulin (HCC-CMS) ([facility]) Expected: 02/09/2024 (Approximate), Expires: 05/09/2024 COMPREHENSIVE METABOLIC PANEL (CMP) Lab Routine Type 2 diabetes mellitus with diabetic polyneuropathy, with long-term current use of insulin (HCC-CMS) ([facility]) Expected: 02/09/2024 (Approximate), Expires: 05/09/2024 COMPLETE BLOOD COUNT AND DIFFERENTIAL Lab Routine Type 2 diabetes mellitus with diabetic polyneuropathy, with long-term current use of insulin ([facility]) ([facility]) Expected: 02/09/2024 (Approximate), Expires: 05/09/2024 LIPID PROFILE (INCLUDES CHOLESTEROL, TRIGLYCERIDES, HDL, LDL) Lab Routine Type 2 diabetes mellitus with diabetic polyneuropathy, with long-term current use of insulin ([facility]) ([facility]) Expected: 02/09/2024 (Approximate), Expires: 05/09/2024 URINE [id number] RATIO (ACR) Lab Routine Type 2 diabetes mellitus with diabetic polyneuropathy, with long-term current use of insulin ([facility]) ([facility]) Expected: 02/09/2024 (Approximate), Expires: 05/09/2024 THYROID-STIMULATING IMMUNOGLOBULIN (TSI), SERUM Lab Routine Subclinical hyperthyroidism Expected: 11/11/2023 (Approximate), Expires: 11/10/2024 Scheduled Referrals Name Type Priority Associated Diagnoses Order Schedule AMB CONS/FOLLOW UP HEADACHE Outpatient Referral Routine/Next Available Migraine with aura and without status migrainosus, not intractable Cyclic vomiting syndrome Expected: 12/11/2023 (Approximate), Expires: 11/10/2024 AMB CONS/FOLLOW UP [facility] Outpatient Referral Routine/Next Available Type 2 diabetes mellitus with diabetic polyneuropathy, with long-term current use of insulin (HCC-CMS) ([facility]) Cyclic vomiting syndrome Expected: 11/18/2023 (Approximate), Expires: 11/10/2024 BEHAVIORAL SLEEP MEDICINE CONSULTATION Outpatient Referral Routine/Next Available Primary insomnia Expected: 12/11/2023 (Approximate), Expires: 11/10/2024 documented as of this encounter Results * HIV 1/2 ANTIGEN AND ANTIBODY, 4TH GENERATION (11/11/2023 13:53 EDT) Pathologist [facility] HIV 1 and 2 Antibody/p24 Antigen, 4th Generation Negative Negative 11/11/2023 17:04 EDT [facility] Comment:If acute HIV-1 infec tion is suspected in a high risk patient, submit plasma specimen for HIV-1 RNA quantitation test. Blood VENOUS BLOOD / Unknown Venipuncture / Unknown 11/11/2023 13:53 EDT 11/11/2023 13:55 EDT Narrative [facility] - 11/11/2023 17:04 EDT Fourth Generation assay performed on the Kibinaur XPT. Carrington Calderon MD IMMUNOLOGY AND SEROLOGY ORDERABLES Performing Organization Address City/[facility]/ZIP Co de Phone Number [facility] [address] [place] [address] * HEPATITIS C AB W REFLEX TO HCV RNA BY PCR (11/11/2023 13:53 EDT) Pathologist [facility] Hep C Antibody Negative Negative 11/11/2023 17:03 EDT [facility] Blood VENOUS BLOOD / Unknown Venipuncture / Unknown 11/11/2023 13:53 EDT 11/11/2023 13:55 EDT Carrington Calderon MD CHEMISTRY & BLOOD GAS ORDERABLES [facility] [address] [place] [address] * HEPATITIS B PROFILE (11/11/2023 13:53 EDT) Pathologist [facility] Hep B Surface Ag Negative Negative 11/11/19 17:04 EDT [facility] Hep B Surface Ab, Quantitative <3.1 See Note mIU/mL 11/11/2023 17:04 EDT [facility] Comment: Reference Range for Hep B Surface Ab, Quant: Positive: >= 10.0 mIU/mL Negative: ??< 10.0 mIU/mL Patient is presumed to not be immune to infection with Hepatitis B Virus. Hep B Surface Ab, Qualitative Negative See Note 11/11/2023 17:04 EDT [facility] Comment: Reference Range for Hep B Surface Ab, Qual: Unvaccinated: ??Negative Vaccinated: ??Positive Hepatitis B Core Ab, Total Negative Negative 11/11/2023 17:04 EDT [facility] Blood VENOUS BLOOD / Unknown Venipuncture / Unknown 11/11/2023 13:53 EDT 11/11/2023 13:55 EDT Carrington Calderon MD CHEMISTRY & BLOOD GAS ORDERABLES Performing Organization Address City/[facility]/ZIP Co de Phone Number [facility] [address] [place] [address] * (ABNORMAL) THYROID CASCADE (11/11/2023 13:53 EDT) TSH 0.37(L) 0.47 - 4.68 mIU/L 11/11/2023 15:38 EDT [facility] Blood VENOUS BLOOD / Unknown Venipuncture / Unknown 11/11/2023 13:53 EDT 11/11/2023 13:55 EDT Narrative [facility] - 11/11/2023 15:38 EDT NOTE: The results of this assay can be falsely lowered due to the consumption of Biotin. Carrington Calderon MD CHEMISTRY & BLOOD GAS ORDERABLES Performing Organization Address [facility]/ZIP Co de Phone Number [facility] [address] [place] [address] documented in this encounter Visit Diagnoses Diagnosis Type 2 diabetes mellitus with diabetic polyneuropathy, with long-term current use of insulin ([facility]) (HCC)- Primary Migraine with aura and without status migrainosus, not intractable Migraine with aura, without mention of intractable migraine without mention of status migrainosus Anxiety and depression Dysthymic disorder Cyclic vomiting syndrome Persistent vomiting Diabetic ulcer of left midfoot associated with type 2 diabetes mellitus, limited to breakdown of skin ([facility]) Primary insomnia Persistent disorder of initiating [...] polyneuropathy, with long-term current use of insulin ([facility]) 8 units with breakfast, 12 units with lunch/dinner 06/27/2023 11/11/2023 documented as of this encounter Care Teams Clay Caster Relationship Specialty Start Date End Date Carrington Calderon MD 1 [facility] 1 [place] [phone] PCP - General Internal Medicine - Primary Care 12/09/20 Abigail Díaz Hold Worker 04/21/23 01/03/24 documented as of this encounter
--- OUTSIDE RECORDS SUMMARY | 2024-02-06 13:30 | XMS_ITS | Encounter Summary ---
Author Organization [facility] Address [address] [place] [address] Care Team Providers Care Bottle Machine Operator Name Role Phone Carrington Calderon MD Primary Care Provi anders Abigail Díaz Unavailable Carmelo Hendrickson Unavailable Unavailable Encounter Details Date Type Department Care Team (Late st Contact Info) Description 12/07/2023 Patient Outreach [facility] Adult Primary Care - [place] 1 [place], [place] [phone] Carmelo Hendrickson Social History Tobacco Use Types Packs/Day Years Used Date Smoking Tobacco: Every Day Cigarettes 0.5 13.2 Started: 11/10/2010 Smokeless Tobacco: Never Comments:06/13/20 actively try ing to quit about 5-8 cigs/day Alcohol Use Standard Drinks/Week Comments Yes 0 (1 standard drink = 0.6 oz pur e alcohol) rarely C Utilities Answer Date Recorded In the past 12 months has [employer], oil, or water [employer] threatened to shut off services in your [...] any time in the past 12 m [facility], were you homeless or living in a [...] Carmelo Hendrickson - 12/07/2023 0957 EDT [facility] Fur Dry Cleaner Hand Follow-up Note Encounter type: Telephone Notes: [facility] - [address] [phone] Carrington Calderon MD 1 [facility] Level 1 [place] [phone] 02/27/2024 8:30 EDT Telemedicine [facility] Sleep Program - [address] [address] Dwight Colbert [address] [place] [phone] 02/29/2024 10:30 EDT Appointment [facility] Radiology Nuclear Medicine and PET [address] [address] 02/29/2024 14:30 EDT Appointment [facility] Radiology Nuclear Medicine and PET - [address] [address] 03/01/2024 8:00 EDT Appointment [facility] Radiology Nuclear Medicine and PET [address] [address] 03/01/2024 9:30 EDT Appointment [facility] Radiology Nuclear Medicine and PET [address] [address] documented as of this encounter Visit Diagnoses Not on filedocumented in this encounter Care Teams Bottle Machine Operator Relationship Specialty Start Date End Date Carrington Calderon MD [address] [phone] PCP - General Internal Medicine - Primary Care 12/09/20 Abigail Díaz Aircraft Cleaning Supervisor 04/21/23 01/03/24 Carmelo Hendrickson Coordinator 12/01/23 documented as of this encounter
--- OUTSIDE RECORDS SUMMARY | 2024-02-06 13:30 | XMS_ITS | Encounter Summary ---
Author Organization [facility] Address [address] [place] [address] Care Team Providers Care Librarian Specialist Name Role Phone Carrington Calderon MD Primary Care Provi anders Carmelo Hendrickson Unavailable Unavailable Abigail Díaz Unavailable Reason for Visit * Reason Comments Medications Refill Encounter Details Date Type Department Care Team (Late st Contact Info) Description 01/18/2024 Refill [facility] Adult Primary Care - [address] [phone] Carrington Calderon MD [address] [phone] Medications Refill Social History Tobacco Use Types Packs/Day Years Used Date Smoking Tobacco: Every Day Cigarettes 0.5 13.2 Started: 11/10/2010 Smokeless Tobacco: Never Comments:06/13/20 actively try ing to quit about 5-8 cigs/day Alcohol Use Standard Drinks/Week Comments Yes 0 (1 standard drink = 0.6 oz pur e alcohol) rarely [facility] Utilities Answer Date Recorded In the past 12 months has [employer] e electric, gas, oil, or water company [...] in the past 12 m [facility], were you homeless or living [...] End Da te DULoxetine 40 mg capsule,delayed release(DR/EC)Indications :Anxiety and depression Take 1 capsule by mouth once daily 90 Capsule 3 01/18/2024 documented in this encounter Miscellaneous Notes * Telephone Encounter - Karen Trujlilo - 01/18/2024 1407 EDT Medication(s) Requested: Duloxetine Preferred Pharmacy: [facility] Is patient out of medication? Yes Last Refill Date: 12/18/2023 Last Visit Date with Ordering Provider: 12/01/2023 Next Non-Acute Visit Date Scheduled with Care Team: Yes. Karen Trujillo 01/18/2024 14:09 documented in this encounter Plan of Treatment Upcoming Encounters Date Type Department Care Team (Late st Contact Info) Description 02/21/2024 9:45 EDT Office Visit [facility] Adult Primary Care - [address] 201331 Carrington Calderon MD [address] [phone] 02/27/2024 8:30 EDT Telemedicine [facility] Sleep Program - [address] 543131 Dwight Colbert [address] [place] [address] [phone] 02/29/2024 10:30 EDT Appointment [facility] Radiology Nuclear Medicine and PET [address] [phone] 02/29/2024 14:30 EDT Appointment [facility] Radiology Nuclear Medicine and PET [address] 076241 03/01/2024 8:00 EDT Appointment [facility] Radiology Nuclear Medicine and PET [address] [phone] 03/01/2024 9:30 EDT Appointment [facility] Radiology Nuclear Medicine and PET [address] [phone] documented as of this encounter Visit Diagnoses Diagnosis Anxiety and depression- Primary Dysthymic disorder documented in this encounter Discontinued Medications Medication Sig Discontinue Reason Start Date End Da te DULoxetine 40 mg capsule,delayed release(DR/EC)Indications :Anxiety and depression Take 40 mg by mouth daily. 12/17/2022 01/18/2024 documented as of this encounter Care Teams Librarian Specialist Relationship Specialty Start Date End Date Carrington Calderon MD [address] [place] [address] [phone] PCP - General Internal Medicine - Primary Care 12/09/20 Carmelo Hendrickson Coordinator 12/01/23 Abigail Díaz Probation And Patrol Agent 01/04/24 documented as of this encounter
--- OUTSIDE RECORDS SUMMARY | 2024-02-06 13:31 | XMS_ITS | Encounter Summary ---
Author Organization [facility] Address [address] [place] [address] Care Team Providers Care Hims Coder Name Role Phone Carrington Calderon MD Primary Care Provi anders Abigail Díaz Unavailable [phone] Carmelo Hendrickson Unavailable Unavailable Abigail Díaz Unavailable Reason for Visit * Reason Onset Date Comments Medications Refill 07/06/2023 Encounter Details Date Type Department Care Team (Late st Contact Info) Description 07/06/2023 Refill [facility] Adult Primary Care - [address] [phone] Carrington Calderon MD 1 [facility] Level 1 [place] [phone] Medications Refill Social History Tobacco Use Types [...] in a assisted (including now)? No 06/14/2023 Interpersonal Safety Answer Date Record ed How often does anyone, audrey chivo family, hit, punch or physically hurt you? 06/14/2023 How often does anyone, bennynick chivo family, [...] current use of insulin ([facility]) Inject 1 Each into the skin every 3 months. 1 Each 4 07/07/2023 documented in this encounter Miscellaneous Notes * Telephone Encounter - Berenice Mahan - 07/06/2023 0953 EST Medication(s) Requested/ Last Ordered: Dexcom Transmitter 03/16/23 Preferred Pharmacy: [facility] [address] [place] [address] Is patient out of medication? Yes Last Visit Date with Ordering Provider: 06/27/2023 Next Non-Acute Visit Date Scheduled with Care Team: 08/15/2023 Berenice Mahan 07/06/2023 9:54 documented in this encounter Plan of Treatment Upcoming Encounters Date Type Department Care Team (Late st Contact Info) Description 02/21/2024 9:45 EDT [facility] Visit [facility] Adult Primary Care - [address] 512051 Carrington Calderon MD [address] [phone] 02/27/2024 8:30 EDT Telemedicine [facility] Sleep Program - [address] [phone] 07 Dwight Colbert [address] [place] [address] 02/29/2024 10:30 EDT Appointment [facility] Radiology Nuclear Medicine and PET - [address] [address] 02/29/2024 14:30 EDT Appointment [facility] Radiology Nuclear Medicine and PET [address] [address] 03/01/2024 8:00 EDT Appointment [facility] Radiology Nuclear Medicine and PET [address] [phone] 03/01/2024 9:30 EDT Appointment [facility] Radiology Nuclear Medicine and PET [address] [address] documented as of this encounter Visit Diagnoses Diagnosis Type 2 diabetes mellitus with diabetic polyneuropathy, with long-term current use of insulin ([facility]) ([facility]) documented in this encounter Discontinued Medications Medication Sig Discontinue Reason Start Date End Da te Blood-Glucose Transmitter (DEXCOM G6 TRANSMITTER) deviceIndications:Type 2 diabetes mellitus with diabetic polyneuropathy, with long-term current use of insulin ([facility]) Inject 1 Each into the skin every 3 months. Reorder 03/16/2023 07/06/2023 documented as of this encounter Care Teams Hims Coder Relationship Specialty Start Date End Date Carrington Calderon MD 1 [facility] 1 [place] [phone] PCP - General Internal Medicine - Primary Care 12/09/20 Abigail Díaz [place] 04/21/23 01/03/24 Carmelo Hendrickson Coordinator 12/01/23 Abigail Díaz [place] [place] 01/04/24 documented as of this encounter
--- OUTSIDE RECORDS SUMMARY | 2024-02-06 13:31 | XMS_ITS | Encounter Summary ---
Author Organization [facility] Address [address] [place] [address] Care Team Providers Care Product Development Engineer Name Role Phone Carrington Calderon MD Primary Care Provi anders Reason for Referral * Consult (Routine/Next Available) - Specialty Report Received Specialty Diagnoses / Procedures Referred By Kit ogode Referred To Contact Endocrinology Diagnoses Type 2 diabetes mellitus with diabetic polyneuropathy, with long-term current use of insulin ([facility]) Fermin Skinner MD [address] [phone] Harjinder Azevedo, DO [address] [place] [address] [place] [phone] Referral ID Status Reason Start Date Expiration Date Visits Requested Visits Authorized [id number] Specialty Report Received Specialty Services Required 04/14/2023 1 1 Question Answer Reason for Request: Type II DM Reason for Visit * Reason Onset Date Comments Referral Request 04/14/2023 Encounter Details Date Type Department Care Team (Late st Contact Info) Description 04/14/2023 Telephone [facility] Adult Primary Care - [address] [phone] Carrington Calderon MD [address] [phone] Referral Request Social History Tobacco Use Types [...] EST Spoke with pt who reports her health and wellness director recommended she see Dr Azevedo for diabetes. Referral pended for review. * Telephone Encounter - Misty Barahona - 04/14/2023 1308 EST Stella came up to the front sight attacher today (Spouse has an appointment) and is requesting a referral to Nathanael Azevedo, Baby Doctor. documented in this encounter Plan of Treatment Upcoming Encounters Date Type Department Care Team (Late st Contact Info) Description 02/21/2024 9:45 EDT Office Visit [facility] Adult Primary Care - [address] [phone] Carrington Calderon MD [address] [place] [address] [phone] 02/27/2024 8:30 EDT Telemedicine [facility] Sleep Program - [address] [phone] Dwight Colbert [address] [place] [address] [phone] 02/29/2024 10:30 EDT Appointment [facility] Radiology Nuclear Medicine and PET [address] 574181 02/29/2024 14:30 EDT Appointment [facility] Radiology Nuclear Medicine and PET [address] 297721 03/01/2024 8:00 EDT Appointment [facility] Radiology Nuclear Medicine and PET [address] [phone] 03/01/2024 9:30 EDT Appointment [facility] Radiology Nuclear Medicine and PET [address] [phone] Scheduled Referrals Name Type Priority Associated Diagnoses Order Schedule AMB CONS/FOLLOW UP ENDOCRINOLOGY Outpatient Referral Routine/Next Available Type 2 diabetes mellitus with diabetic polyneuropathy, with long-term current use of insulin ([facility]) ([facility]) Expected: 04/21/2023 (Approximate), Expires: 04/14/2024 documented as of this encounter Visit Diagnoses Diagnosis Type 2 diabetes mellitus with diabetic polyneuropathy, with long-term current use of insulin ([facility]) ([facility])- Primary documented in this encounter Care Teams Product Development Engineer Relationship Specialty Start Date End Date Carrington Calderon MD [address] [place] [phone] PCP - General Internal Medicine - Primary Care 12/09/20 documented as of this encounter
--- OUTSIDE RECORDS SUMMARY | 2024-02-06 13:31 | XMS_ITS | Encounter Summary ---
Author Organization [facility] Address [address] [place] [address] Care Team Providers Care Paint Roller Winder Name Role Phone Carrington Calderon MD Primary Care Provi anders Reason for Visit * Reason Onset Date Comments Critical Value 03/14/2023 Encounter Details Date Type Department Care Team (Late st Contact Info) Description 03/14/2023 Telephone [facility] Adult Primary Care - [place] 1 [place], [place] 774391 Carrington Calderon MD 1 [facility] Level 1 [place] [phone] Critical Value Social History Tobacco [...] minutes. She was instructed to call the part time receptionist MD if it was not going up [...] Visit [facility] Adult Primary Care - [address] [phone] Carrington Calderon MD [address] [place] [address] [phone] 02/27/2024 8:30 EDT Telemedicine [facility] Sleep Program - [address] [phone] Dwight Colbert [address] [place] [address] [phone] 02/29/2024 10:30 EDT Appointment [facility] Radiology Nuclear Medicine and PET [address] [phone] 02/29/2024 14:30 EDT Appointment [facility] Radiology Nuclear Medicine and PET [address] [phone] 03/01/2024 8:00 EDT Appointment [facility] Radiology Nuclear Medicine and PET [address] 345751 03/01/2024 9:30 EDT Appointment [facility] Radiology Nuclear Medicine and PET [address] 012161 documented as of this encounter Visit Diagnoses Not on filedocumented in this encounter Care Teams Paint Roller Winder Relationship Specialty Start Date End Date Carrington Calderon MD [address] [place] [address] [phone] PCP - General Internal Medicine - Primary Care 12/09/20 documented as of this encounter
--- OUTSIDE RECORDS SUMMARY | 2024-02-06 13:31 | XMS_ITS | Encounter Summary ---
Author Organization [facility] Address [address] [place] [address] Care Team Providers Care Stack Clerk Name Role Phone Carrington Calderon MD Primary Care Provi anders Reason for Visit * Reason Onset Date Comments Coordination Of Care 03/30/2023 Encounter Details Date Type Department Care Team (Late st Contact Info) Description 03/30/2023 Telephone [facility] Adult Primary Care [facility] 1 [place], [place] 882731 Carrington Calderon MD 1 [facility] Level 1 [place] [phone] Coordination Of Care Social History [...] [facility] Adult Primary Care - [address] 539861 Carrington Calderon MD [address] [phone] 02/27/2024 8:30 EDT Telemedicine [facility] Sleep Program - [address] [phone] Dwight Colbert [address] [place] [address] [phone] 02/29/2024 10:30 EDT Appointment [facility] Radiology Nuclear Medicine and PET [address] 139351 02/29/2024 14:30 EDT Appointment [facility] Radiology Nuclear Medicine and PET [address] [phone] 03/01/2024 8:00 EDT Appointment [facility] Radiology Nuclear Medicine and PET [address] [phone] 03/01/2024 9:30 EDT Appointment [facility] Radiology Nuclear Medicine and PET [address] [phone] Scheduled Orders Name Type Priority Associated Diagnoses [...] with long-term current use of insulin ([facility]) ([facility]) Expected: 03/30/2023 (Approximate), Expires: 03/30/2024 documented as of this encounter Visit Diagnoses Diagnosis Lymphocytosis- Primary Lymphocytosis (symptomatic) Abnormal thyroid function test Nonspecific abnormal results of thyroid function study Type 2 diabetes mellitus with diabetic polyneuropathy, with long-term current use of insulin ([facility]) ([facility]) documented in this encounter Care Teams Stack Clerk Relationship Specialty Start Date End Date Carrington Calderon MD 1 [facility] 1 [place] [phone] PCP - General Internal Medicine - Primary Care 12/09/20 documented as of this encounter
--- OUTSIDE RECORDS SUMMARY | 2024-02-06 13:31 | XMS_ITS | Encounter Summary ---
Author Organization [facility] Address [address] [place] [address] Care Team Providers Care Lacing String Cutter Name Role Phone Carrington Calderon MD Primary Care Provi anders Abigail Díaz Unavailable Reason for Visit * Reason Comments Nicotine Dependence Encounter Details Date Type Department Care Team (Late st Contact Info) Description 05/11/2023 Community Health Team [facility] Adult Primary Care - [place] 1 [place], [place] [phone] Kylah Wilson Social History Tobacco Use Types [...] and would like to work with a field hockey and lacrosse coach 1:1 for additional support along with [...] [facility] - [address] [phone] Carrington Calderon MD [address] [phone] 02/27/2024 8:30 EDT Telemedicine [facility] Sleep Program - [address] 978371 Dwight Colbert [address] [place], [place] 502741 02/29/2024 10:30 EDT Appointment [facility] Radiology Nuclear Medicine and PET - [address] 131821 02/29/2024 14:30 EDT Appointment [facility] Radiology Nuclear Medicine and PET [address] [address] 03/01/2024 8:00 EDT Appointment [facility] Radiology Nuclear Medicine and PET - [address] [address] 03/01/2024 9:30 EDT Appointment [facility] Radiology Nuclear Medicine and PET [address] [phone] documented as of this encounter Visit Diagnoses Not on filedocumented in this encounter Care Teams Lacing String Cutter Relationship Specialty Start Date End Date Carrington Calderon MD 1 [facility] Level 1 [place] [phone] PCP - General Internal Medicine - Primary Care 12/09/20 Abigail Díaz Ticketing Clerk 04/21/23 01/03/24 documented as of this encounter
--- OUTSIDE RECORDS SUMMARY | 2024-02-06 13:31 | XMS_ITS | Encounter Summary ---
Author Organization [facility] Address [address] [place] [address] Care Team Providers Care Teacher Hearing Impaired Name Role Phone Carrington Calderon MD Primary Care Provi anders Abigail Díaz Unavailable [phone] Carmelo Hendrickson Unavailable Unavailable Abigail Díaz Unavailable Encounter Details Date Type Department Care Team (Late st Contact Info) Description 03/18/2023 Orders Only [facility] Adult Primary Care - [address] [phone] Ratna Latham Abnormal TSH Social History Tobacco [...] [facility] - [address] 553571 Carrington Calderon MD [address] [phone] 02/27/2024 8:30 EDT Telemedicine [facility] Sleep Program - [address] 671941 Dwight Colbert [address] [place] [address] [phone] 02/29/2024 10:30 EDT Appointment [facility] Radiology Nuclear Medicine and [address] [phone] 02/29/2024 14:30 EDT Appointment [facility] Radiology Nuclear Medicine and [address] [phone] 03/01/2024 8:00 EDT Appointment [facility] Radiology Nuclear Medicine and PET [address] [phone] 03/01/2024 9:30 EDT Appointment [facility] Radiology Nuclear Medicine and [address] [phone] documented as of this encounter Procedures Procedure Name Priority Date/Time Associated Diagnosis Comments THYROID-STIMULATING IMMUNOGLOBULIN (TSI), SERUM Routine 03/14/2023 15:19 EDT Abnormal TSH documented in this encounter Results * THYROID-STIMULATING IMMUNOGLOBULIN (TSI), SERUM (03/14/2023 15:19 EDT) Thyroid-Stimulati ng Immunoglobin, S <1.0 <=1.3 TSI index 03/25/2023 15:55 EDT [facility] Comment: Test Performed by: [facility] [address] [place] [address] Envelope Maker: Wiley Fry M.D. Ph.D.; CLIA# [id number] Blood VENOUS BLOOD / Unknown Venipuncture / Unknown 03/14/2023 15:19 EDT 03/18/2023 16:07 EDT Carrington Calderon MD CHEMISTRY & BLOOD GAS ORDERABLES [facility] [address] [place] [address] documented in this encounter Visit Diagnoses Diagnosis Abnormal TSH Other abnormal clinical finding documented in this encounter Care Teams Teacher Hearing Impaired Relationship Specialty Start Date End Date Carrington Calderon MD 1 [facility] Level 1 [place] [phone] PCP - General Internal Medicine - Primary Care 12/09/20 Abigail Díaz Principal Automation Engineer 04/21/23 01/03/24 Carmelo Hendrickson Coordinator 12/01/23 Abigail Díaz Principal Automation Engineer 01/04/24 documented as of this encounter
--- OUTSIDE RECORDS SUMMARY | 2024-02-06 13:31 | XMS_ITS | Encounter Summary ---
Author Organization [facility] Address [address] [place] [address] Care Team Providers Care Pipe Fitter Street Service Name Role Phone Carrington Calderon MD Primary Care Provi anders Encounter Details Date Type Department Care Team (Late st Contact Info) Description 03/17/2023 13:45 EDT Phlebotomy Only [facility] Laboratory Services - [address] [address] Coupling Machine Operator, [facility] Night sweats; Lymphocytosis Social History Tobacco [...] EDT Office Visit [facility] Adult Primary Care - [address] [phone] Carrington Calderon MD [address] [phone] 02/27/2024 8:30 EDT Telemedicine [facility] Sleep Program - [address] [phone] Dwight Colbert [address] [place] [address] [phone] 02/29/2024 10:30 EDT Appointment [facility] Radiology Nuclear Medicine and PET [address] [phone] 02/29/2024 14:30 EDT Appointment [facility] Radiology Nuclear Medicine and PET [address] [phone] 03/01/2024 8:00 EDT Appointment [facility] Radiology Nuclear Medicine and PET [address] [phone] 03/01/2024 9:30 EDT Appointment [facility] Radiology Nuclear Medicine and PET [address] [phone] documented as of this encounter Procedures Procedure Name Priority Date/Time Associated Diagnosis Comments LEUKEMIA/LYMPHOMA PANEL BY FLOW CYTOMETRY Routine 03/17/2023 13:52 EDT Night sweats Lymphocytosis COMPLETE BLOOD COUNT AND DIFFERENTIAL Routine 03/17/2023 13:52 EDT Night sweats Lymphocytosis documented in this encounter Results * (ABNORMAL) COMPLETE BLOOD COUNT AND DIFFERENTIAL (03/17/2023 13:52 EDT) WBC 16.01(H) 4.00 - 12.40 K/cmm 03/17/2023 14:47 [facility] RBC 4.25 3.86 - 5.04 M/cmm 03/17/2023 14:47 [facility] Hemoglobin 13.8 11.6 - 15.2 g/dL 03/17/2023 14:47 [facility] HCT 39.0 34.9 - 44.4 % 03/17/2023 14:47 [facility] MCV 92 81 - 98 fL 03/17/2023 14:47 [facility] MCH 32.5 26.7 - 33.3 pg 03/17/2023 14:47 [facility] MCHC 35.4 32.1 - 35.9 g/dL 03/17/2023 14:47 [facility] RDW-CV 12.7 <14.7 % 03/17/2023 14:47 [facility] RDW-SD 42.2 <50.4 fl 03/17/2023 14:47 [facility] PLT 435(H) 141 - 377 K/cmm 03/17/2023 14:47 [facility] MPV 9.5 9.5 - 12.7 fL 03/17/2023 14:47 [facility] % Neutrophils 44.3 % 03/17/2023 14:47 [facility] % Lymphocytes 44.1 % 03/17/2023 14:47 [facility] % Monocytes 7.4 % 03/17/2023 14:47 [facility] % Eosinophils 3.3 % 03/17/2023 14:47 [facility] % Basophils 0.6 % 03/17/2023 14:47 [facility] % Immature Grans 0.3 % 03/17/20 14:47 [facility] Absolute Neutrophils 7.09 2.20 - 8.85 K/cmm 03/17/2023 14:47 [facility] Absolute Lymphocytes 7.06(H) 1.09 - 3.30 K/cmm 03/17/2023 14:47 [facility] Absolute Monocytes 1.19(H) 0.10 - 0.80 K/cmm 03/17/2023 14:47 [facility] Absolute Eosinophils 0.53 0.03 - 0.61 K/cmm 03/17/2023 14:47 [facility] ABS Basophils 0.09 0.01 - 0.11 K/cmm 03/17/2023 14:47 [facility] Absolute Immature Grans 0.05 0.00 - 0.06 K/cmm 03/17/2023 14:47 [facility] Type of Differential: Auto 03/17/2023 14:47 [facility] Blood VENOUS BLOOD / Unknown Venipuncture / Unknown 03/17/2023 13:52 EDT 03/17/2023 13:52 EDT Carrington Calderon MD PACKAGES & DNA PROBE ORDERABLES [facility] [address] [place] [address] * LEUKEMIA/LYMPHOMA PANEL BY FLOW CYTOMETRY (03/17/2023 13:52 EDT) Final Immunophenotypic Interpretation Peripheral blood, flow cytometric analysis: - No immunophenotypic evidence of a clonal cell population. See comment. 3 12:55 [facility] Comment The results of flow cytometry show no immunophenotypic evidence of involvement by a clonal lymphoproliferative disorder. Correlation of these findings with morphologic and clinical data is essential. 3 12:55 [facility] Attestation By the signature below, the attending physician certifies that they have 1) personally conducted a gross and/or microscopic examination of the described specimen(s), and/or personally interpreted the results of laboratory testing of the described specimen(s), and 2) personally rendered or confirmed the above diagnosis. 3 12:55 [facility] at 1255 Clinical History night sweats, lymphocytosis, smudge cells 3 12:55 [facility] Description The specimen consists of [...] is no increase in blasts. 3 12:55 [facility] Flow Markers CD10, CD117, CD11c, CD16, CD19, CD20, CD3, CD33, CD34, CD38, CD4, CD45, CD5, CD56, CD8, HLA-DR, [place], and Lambda 3 12:55 [facility] FDA Disclaimer This test was developed and its performance characteristics determined by the Department of Pathology and Laboratory Medicine, [facility], [place], [place] It has not been cleared or [...] high complexity clinical laboratory testing. 3 12:55 [facility] Sample Analyzed Date and Time 03/18/23 at 1106 3 12:55 EDT [facility] Scanned Images 3 12:55 EDT [facility] Blood VENOUS BLOOD / Unknown Venipuncture / Unknown 03/17/2023 13:52 EDT 03/17/2023 13:52 EDT Carrington Calderon MD PATHOLOGY O RDERABLES [facility] [address] [place] [address] documented in this encounter Visit Diagnoses Diagnosis Night sweats Generalized hyperhidrosis Lymphocytosis Lymphocytosis (symptomatic) documented in this encounter Care Teams Pipe F[address] Service Relationship Specialty Start Date End Date Carrington Calderon MD 1 [facility] 1 [place] [address] PCP - General Internal Medicine - Primary Care 12/09/20 documented as of this encounter
--- OUTSIDE RECORDS SUMMARY | 2024-02-06 13:31 | XMS_ITS | Encounter Summary ---
Author Organization [facility] Address [address] [place] [address] Care Team Providers Care Pharmacy Clinical Coordinator Name Role Phone Carrington Calderon MD Primary Care Provi anders Abigail Díaz Unavailable Carmelo Hendrickson Unavailable Unavailable Abigail Díaz Unavailable Reason for Visit * Reason Onset Date Comments Appointment Related 05/04/2023 Encounter Details Date Type Department Care Team (Late st Contact Info) Description 05/04/2023 Telephone [facility] Endocrinology - [facility] [address] [place] [address] Amilcar Ortega MD 62 [facility] [address] [place] [address] Appointment Related Social History Tobacco [...] - 05/04/2023 0823 EST Patient accepted zoom THERMAL ENGINEER opening with Dr. Ortega today at 4:00. documented in this encounter Plan of Treatment Upcoming Encounters Date Type Department Care Team (Late st Contact Info) Description 02/21/2024 9:45 EDT Office Visit [facility] Adult Primary Care - [address] [phone] Carrington Calderon MD [address] [phone] 02/27/2024 8:30 EDT Telemedicine [facility] Sleep Program - [address] [phone] Dwight Colbert [address] [place] [phone] 02/29/2024 10:30 EDT Appointment [facility] Radiology Nuclear Medicine and PET - [address] [phone] 02/29/2024 14:30 EDT Appointment [facility] Radiology Nuclear Medicine and PET - [address] [id number] 03/01/2024 8:00 EDT Appointment [facility] Radiology Nuclear Medicine and PET - [address] [phone] 03/01/2024 9:30 EDT Appointment [facility] Radiology Nuclear Medicine and PET - [address] [phone] documented as of this encounter Visit Diagnoses Not on filedocumented in this encounter Care Teams Pharmacy Clinical Coordinator Relationship Specialty Start Date End Date Carrington Calderon MD 1 [facility] 1 [place] [address] PCP - General Internal Medicine - Primary Care 12/09/20 Abigail Díaz Area Field Worker 04/21/23 01/03/24 Carmelo Hendrickson Coordinator 12/01/23 Abigail Díaz Area Field Worker 01/04/24 documented as of this encounter
--- OUTSIDE RECORDS SUMMARY | 2024-02-06 13:31 | XMS_ITS | Encounter Summary ---
Author Organization [facility] Address [address] [place] [address] Care Team Providers Care Logistics Solution Manager Name Role Phone Carrington Calderon MD Primary Care Provi anders Abigail Díaz Unavailable Reason for Visit * Reason Onset Date Comments Appointment Related 06/20/2023 Encounter Details Date Type Department Care Team (Late st Contact Info) Description 06/20/2023 Telephone [facility] Adult Primary Care - [address] [address] Carrington Calderon MD 1 [facility] 1 [place] [address] Appointment Related Social History Tobacco [...] Encounter - Jose Luis Wilson - 06/20/2023 0339 EST LVM for patient to get blood work done prior to upcoming visit on 06/27/23. Jose Luis Wilson 06/20/2023 15:40 documented in this encounter Plan of Treatment Upcoming Encounters Date Type Department Care Team (Late st Contact Info) Description 02/21/2024 9:45 EDT Office Visit [facility] Adult Primary Care - [address] [address]651 Carrington Calderon MD [address] [phone] 02/27/2024 8:30 EDT Telemedicine [facility] Sleep Program - [address] [phone] Dwight Colbert [address] [place] [phone] 02/29/2024 10:[address] [facility] Radiology Nuclear Medicine and PET - [address] [phone] 02/29/2024 14:[address] [facility] Radiology Nuclear Medicine and PET - [address] [phone] 03/01/2024 8:[address] [facility] Radiology Nuclear Medicine and PET - [address] [phone] 03/01/2024 9:[address] [facility] Radiology Nuclear Medicine and PET [address] [phone] documented as of this encounter Visit Diagnoses Not on filedocumented in this encounter Care Teams Logistics Solution Manager Relationship Specialty Start Date End Date Carrington Calderon MD 1 [facility] 1 [place] [address] PCP - General Internal Medicine - Primary Care 12/09/20 Abigail Díaz Insurance Defense Attorney 04/21/23 01/03/24 documented as of this encounter
--- OUTSIDE RECORDS SUMMARY | 2024-02-06 13:31 | XMS_ITS | Encounter Summary ---
Author Organization [facility] Address [address] [place] [address] Care Team Providers Care Heel Sewer Name Role Phone Carrington Calderon MD Primary Care Provi anders Reason for Referral * Consult (Routine/Next Available) - Closed Specialty Diagnoses / Procedures Referred By Kit goode Referred To Contact Diagnoses Cyclical vomiting Carrington Calderon MD [address] [place] [phone] Mallorie Martinez MD [address] [place] [phone] Referral ID Status Reason Start Date Expiration Date V isits Requested Visits Authorized [id number] Closed Specialty Services Required 03/16/2023 1 1 Question Answer Reason for Request: cyclic menstrual vomiting- LARC with suppression of menses Practice Site (External Referral Only): [facility] Reason for Visit * Reason Comments Follow-up Diabetes Encounter Details Date Type Department Care Team ([facility] st Contact Info) Description 03/16/2023 10:15 EDT Telemedicine [facility] Adult Primary Care - [address] [address] Carrington Calderon MD [address] [phone] Cyclical vomiting (Primary Dx); Anxiety and depression; Type 2 diabetes mellitus with diabetic polyneuropathy, with long-term current use of insulin ([facility]) (HCC); Night sweats; Lymphocytosis; Abnormal TSH Social [...] in this encounter Progress Notes * Jose Lius Wilson - 03/16/2023 1015 EDT The concept [...] Home Patient location state: Visit Location State: [place] The location of the provider: Office Provider location state: Visit Location State: [place] The following people and their roles were [...] current use of insulin ([facility]) ([facility]): Stella is in need of new Dexcom supplies. I sent a prescription to her pharmacy. 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 All 3 children have [...] did participate in today's encounter visit: Carrington Caledron MD Objective There were no vitals taken [...] [facility] [address] [phone] Carrington Calderon MD [address] [place] [phone] 02/27/2024 8:30 EDT Telemedicine [facility] Sleep Program - [address] [address] Dwight Colbert [address] [place], [place] [phone] 02/29/2024 10:30 EDT Appointment [facility] Radiology Nuclear Medicine and PET [address] [address] 02/29/2024 14:30 EDT Appointment [facility] Radiology Nuclear Medicine and PET [address] [address] 03/01/2024 8:00 EDT Appointment [facility] Radiology Nuclear Medicine and PET [address] [address] 03/01/2024 9:30 EDT Appointment [facility] Radiology Nuclear Medicine and PET [address] [phone] Scheduled Referrals Name Type Priority Associated Diagnoses [...] 4.00 - 12.40 K/cmm 03/17/2023 14:47 EDT [facility] RBC 4.25 3.86 - 5.04 M/cmm 03/17/2023 14:47 EDT [facility] Hemoglobin 13.8 11.6 - 15.2 g/dL 03/17/2023 14:47 EDT [facility] HCT 39.0 34.9 - 44.4 % 03/17/2023 14:47 EDT [facility] MCV 92 81 - 98 fL 03/17/2023 14:47 [facility] MCH 32.5 26.7 - 33.3 pg 03/17/2023 14:47 [facility] MCHC 35.4 32.1 - 35.9 g/dL 03/17/2023 14:47 [facility] RDW-CV 12.7 <14.7 % 03/17/2023 14:47 [facility] RDW-SD 42.2 <50.4 fl 03/17/2023 14:47 [facility] PLT 435(H) 141 - 377 K/cmm 03/17/2023 14:47 [facility] MPV 9.5 9.5 - 12.7 fL 03/17/2023 14:47 [facility] % Neutrophils 44.3 % 03/17/2023 14:47 [facility] % Lymphocytes 44.1 % 03/17/2023 14:47 [facility] % Monocytes 7.4 % 03/17/2023 14:47 [facility] % Eosinophils 3.3 % 03/17/2023 14:47 [facility] % Basophils 0.6 % 03/17/2023 14:47 [facility] % Immature Grans 0.3 % 03/17/20 14:47 [facility] Absolute Neutrophils 7.09 2.20 - 8.85 K/cmm 03/17/2023 14:47 [facility] Absolute Lymphocytes 7.06(H) 1.09 - 3.30 K/cmm 03/17/2023 14:47 [facility] Absolute Monocytes 1.19(H) 0.10 - 0.80 K/cmm 03/17/2023 14:47 [facility] Absolute Eosinophils 0.53 0.03 - 0.61 K/cmm 03/17/2023 14:47 [facility] ABS Basophils 0.09 0.01 - 0.11 K/cmm 03/17/2023 14:47 [facility] Absolute Immature Grans 0.05 0.00 - 0.06 K/cmm 03/17/2023 14:47 [facility] Type of Differential: Auto 03/17/2023 14:47 [facility] Blood VENOUS BLOOD / Unknown Venipuncture / Unknown 03/17/2023 13:52 EDT 03/17/2023 13:52 EDT Carrington Calderon MD PACKAGES & DNA PROBE ORDERABLES [facility] [address] [place] [address] * LEUKEMIA/LYMPHOMA PANEL BY FLOW CYTOMETRY (03/17/2023 13:52 EDT) Final Immunophenotypic Interpretation Peripheral blood, flow cytometric analysis: - No immunophenotypic evidence of a clonal cell population. See comment. 12:55 [facility] Comment The results of flow cytometry show no immunophenotypic evidence of involvement by a clonal lymphoproliferative disorder. Correlation of these findings with morphologic and clinical data is essential. 3 12:55 [facility] Attestation By the signature below, the attending physician certifies that they have 1) personally conducted a gross and/or microscopic examination of the described specimen(s), and/or personally interpreted the results of laboratory testing of the described specimen(s), and 2) personally rendered or confirmed the above diagnosis. 3 12:55 [facility] at 1255 Clinical History night sweats, lymphocytosis, smudge cells 3 12:55 [facility] Description The specimen consists [...] no increase in blasts. 3 12:55 [facility] Flow Markers CD10, CD117, CD11c, CD16, CD19, CD20, CD3, CD33, CD34, CD38, CD4, CD45, CD5, CD56, CD8, HLA-DR, [place], and Lambda 3 12:55 [facility] FDA Disclaimer This test was developed and its performance characteristics determined by the Department of Pathology and Laboratory Medicine, [facility], [place], [place] It has not been cleared or [...] complexity clinical laboratory testing. 3 12:55 [facility] Sample Analyzed Date and Time 03/18/23 at 1106 3 12:55 [facility] Scanned Images 3 12:55 [facility] Blood VENOUS BLOOD / Unknown Venipuncture / Unknown 03/17/2023 13:52 EDT 03/17/2023 13:52 EDT Carrington Calderon MD PATHOLOGY O RDERABLES [facility] [address] [place] [address] * THYROID-STIMULATING IMMUNOGLOBULIN (TSI), SERUM (03/14/2023 15:19 EDT) Thyroid-Stimulati ng Immunoglobin, S <1.0 <=1.3 TSI index 03/25/2023 15:55 EDT [facility] Comment: Test Performed by: [facility] [address] [place] [address] Egg Producer: Wiley Fry M.D. Ph.D.; CLIA# [id number] Blood VENOUS BLOOD / Unknown Venipuncture / Unknown 03/14/2023 15:19 EDT 03/18/2023 16:07 EDT Carrington Calderon MD CHEMISTRY & BLOOD GAS ORDERABLES [facility] [address] [place] [address] * T3, TOTAL (03/14/2023 15:19 EDT) [facility] T3, Total 143 97 - 169 ng/dL 03/16/2023 15:56 EDT [facility] Blood VENOUS BLOOD / Unknown Venipuncture / Unknown 03/14/2023 15:19 EDT 03/14/2023 15:19 EDT Carrington Calderon MD CHEMISTRY & BLOOD GAS ORDERABLES [facility] [address] [place] [address] * T4 FREE (03/14/2023 15:19 EDT) [facility] T4, Free 1.3 0.8 - 2.2 ng/dL 03/16/2023 14:42 EDT [facility] Blood VENOUS BLOOD / Unknown Venipuncture / Unknown 03/14/2023 15:19 EDT 03/14/2023 15:19 EDT Carrington Calderon MD CHEMISTRY & BLOOD GAS ORDERABLES [facility] [address] [place] [address] * (ABNORMAL) THYROID CASCADE (03/14/2023 15:19 EDT) TSH 0.44(L) 0.47 - 4.68 mIU/L 03/16/2023 14:03 EDT [facility] Comment:Turbid sample identi fied, interpret with caution as turbidity may affect result. Blood VENOUS BLOOD / Unknown Venipuncture / Unknown 03/14/2023 15:19 EDT 03/14/2023 15:19 EDT Narrative [facility] - 03/16/2023 14:03 EDT NOTE: The results of this assay can be falsely lowered due to the consumption of Biotin. Carrington Calderon MD CHEMISTRY & BLOOD GAS ORDERABLES [facility] [address] [place] [address] documented in this encounter Visit Diagnoses Diagnosis Cyclical vomiting- Primary Persistent vomiting Anxiety and depression Dysthymic disorder Type 2 diabetes mellitus with diabetic polyneuropathy, with long-term current use of insulin ([facility]) (HCC) Night sweats Generalized hyperhidrosis Lymphocytosis Lymphocytosis [...] use of insulin ([facility]) Use 1 pen needle as directed 4 times daily. 09/02/2020 03/16/2023 documented as of this encounter Care Teams Heel Sewer Relationship Specialty Start Date End Date Carrington Calderon MD 1 [facility] [address] [place] [phone] PCP - General Internal Medicine - Primary Care 12/09/20 documented as of this encounter
--- OUTSIDE RECORDS SUMMARY | 2024-02-06 13:31 | XMS_ITS | Encounter Summary ---
Author Organization [facility] Address [address] [place] [address] Care Team Providers Care Extrusion Process Operator Name Role Phone Carrington Calderon MD Primary Care Provi anders Abigail Díaz Unavailable Reason for Visit * Reason Onset Date Comments Rn Surgery Icu Message 05/26/2023 Encounter Details Date Type Department Care Team (Late st Contact Info) Description 05/26/2023 Telephone [facility] Adult Primary Care - [address] [address] Samantha Hough MD [address] [place] [phone] Rn Surgery Icu Message Social History Tobacco Use Types Packs/Day [...] - Samantha Hough MD - 05/26/20232051 EST Rn Surgery Icu Provider Documentation Returned to page to mother [...] - Samantha Hough MD - 05/26/20232022 EST Rn Surgery Icu Provider Documentation 8:20 pm page to fleshing machine operator who states mother in law of patient calling due to concern of patient being sick and vomiting Laboratory Assistant called back x 2, direct to voicemail with no voicemail set up. Await additional calls. Samantha Hough MD documented in this encounter Plan of Treatment Upcoming Encounters Date Type Department Care Team (Late st Contact Info) Description 02/21/2024 9:45 EDT Office Visit [facility] Adult Primary Care - [place] 1 [place], [place] [address]201 Carrington Calderon MD 1 [facility] Level 1 [place] [phone] 02/27/2024 8:30 EDT Telemedicine [facility] Sleep Program - [address] [address] Dwight Colbert [address] [place] [phone] 02/29/2024 10:30 EDT Appointment [facility] Radiology Nuclear Medicine and PET - [address] [address] 02/29/2024 14:30 EDT Appointment [facility] Radiology Nuclear Medicine and PET - [address] [phone] 03/01/2024 8:00 EDT Appointment [facility] Radiology Nuclear Medicine and PET - [address] [phone] 03/01/2024 9:30 EDT Appointment [facility] Radiology Nuclear Medicine and PET [address] [address] documented as of this encounter Visit Diagnoses Not on filedocumented in this encounter Care Teams Extrusion Process Operator Relationship Specialty Start Date End Date Carrington Calderon MD [address] [phone] PCP - General Internal Medicine - Primary Care 12/09/20 Abigail Díaz Biostatistics Teacher 04/21/23 01/03/24 documented as of this encounter
--- OUTSIDE RECORDS SUMMARY | 2024-02-06 13:31 | XMS_ITS | Encounter Summary ---
Author Organization [facility] Address [address] [place] [address] Care Team Providers Care Advertising Statistical Clerk Name Role Phone Carrington Calderon MD Primary Care Provi anders Abigail Díaz Unavailable [phone] Encounter Details Date Type Department Care Team (Late st Contact Info) Description 05/26/2023 Patient Outreach [facility] Adult Primary Care - [place] 1 [place], [place] [address] Abigail Díaz Social History Tobacco Use Types [...] Abigail Díaz - 05/26/2023 1400 EST [facility] Senior Linux Administrator Care Coordination Care management phone consult/visit as scheduled, Stella was not available when called by [facility]. business affairs manager left voicemail requesting call back to reschedule if needed CM sent MyCHart Letter, no further outreach will be conducted documented in this encounter Plan of Treatment Upcoming Encounters Date Type Department Care Team (Late st Contact Info) Description 02/21/2024 9:45 EDT Office Visit [facility] Adult Primary Care - [address] 348[address] Carrington Calderon MD [address] [phone] 02/27/2024 8:30 EDT Telemedicine [facility] Sleep Program - [address] [address] Dwight Colbert [address] [place] [address] [phone] 02/29/2024 10:30 EDT Appointment [facility] Radiology Nuclear Medicine and PET - [address] 564171 02/29/2024 14:30 EDT Appointment [facility] Radiology Nuclear Medicine and PET - [address] 512281 03/01/2024 8:00 EDT Appointment [facility] Radiology Nuclear Medicine and PET - [address] 163351 03/01/2024 9:30 EDT Appointment [facility] Radiology Nuclear Medicine and PET - [address] 587001 documented as of this encounter Visit Diagnoses Not on filedocumented in this encounter Care Teams Advertising Statistical Clerk Relationship Specialty Start Date End Date Carrington Calderon MD 1 [facility] 1 [place] [phone] PCP - General Internal Medicine - Primary Care 12/09/20 Abiagil Díaz Senior Linux Administrator 04/21/23 01/03/24 documented as of this encounter
--- OUTSIDE RECORDS SUMMARY | 2024-02-06 13:31 | XMS_ITS | Encounter Summary ---
Author Organization [facility] Address [address] [place] [address] Care Team Providers Care Machine Repairer Name Role Phone Carrington Calderon MD Primary Care Provi anders Abigail Díaz Unavailable Reason for Visit * Reason Comments Follow-up EST/ Gastroparesis/ Notes in scans * Consult (Routine) - Receiving Office to Obtain Authorization Specialty Diagnoses / Procedures Referred By Kit goode Referred To Contact Diagnoses Gastroparesis Dale Collier MD [address] [place] [address] [place] [address] [facility] Mp[address] [facility] [address] [place] [id number] Referral ID Status Reason Start Date Expiration Date Visits Requested Visits Authorized [id number] Receiving Office to Obtain Authorization Specialty Services Required 1 1 Encounter Details Date Type Department Care Team (Late st Contact Info) Description 05/13/2023 11:00 EST Office Visit [facility] Gastroenterology - [address] [address] Scott Arzate MD 111 [facility], Level 5 [place] [phone] Cyclic vomiting syndrome (Primary Dx) Social History [...] (IMITREX) 20 mg/actuation nasal spray Instill 1 [place] into right nostril as needed for Migraine. [...] [facility] Adult Primary Care - [address] [phone] Carrington Calderon MD [address] [phone] 02/27/2024 8:30 EDT Telemedicine [facility] Sleep Program - [address] [address] Dwight Colbert [address] [place] [address] [phone] 02/29/2024 10:30 EDT Appointment [facility] Radiology Nuclear Medicine and PET [address] [id number] 02/29/2024 14:30 EDT Appointment [facility] Radiology Nuclear Medicine and PET [address] [address] 03/01/2024 8:00 EDT Appointment [facility] Radiology Nuclear Medicine and PET [address] [phone] 03/01/2024 9:30 EDT Appointment [facility] Radiology Nuclear Medicine and PET [address] [phone] documented as of this encounter Visit Diagnoses Diagnosis Cyclic vomiting syndrome- Primary Persistent vomiting documented in this encounter Care Teams Machine Repairer Relationship Specialty Start Date End Date Carrington Calderon MD [address] [place] [phone] PCP - General Internal Medicine - Primary Care 12/09/20 Abigail Díaz Reference Assistant 04/21/23 01/03/24 documented as of this encounter
--- OUTSIDE RECORDS SUMMARY | 2024-02-06 13:31 | XMS_ITS | Encounter Summary ---
Author Organization [facility] Address [address] [place] [address] Care Team Providers Care House Calls Nurse Practitioner Name Role Phone Carrington Calderon MD Primary Care Provi anders BarahonaJameyClayAbigail Unavailable Reason for Referral * Radiology Services (Routine/Next Available) - Authorization Not Required Specialty Diagnoses / Procedures Referred By Contac t Referred To Contact Diagnoses Pain in right ankle and joints of right foot Procedures XR ANKLE RIGHT 3 OR MORE VIEWS Kylah Vázquez PA [address] [place] [phone] [facility] Referral ID Status Reason Start Date Expiration Date Visits Requested Visits Authorized [id number] Authorization Not Required 07/25/2023 1 1 Reason for Visit * Radiology Services (Routine/Next Available) - Authorization Not Required Specialty Diagnoses / Procedures Referred By Contac t Referred To Contact Diagnoses Pain in right ankle and joints of right foot Procedures XR ANKLE RIGHT 3 OR MORE VIEWS Kylah Vázquez PA [address] [place] [phone] [facility] Referral ID Status Reason Start Date Expiration Date Visits Requested Visits Authorized [id number] Authorization Not Required 07/25/2023 1 1 Encounter Details Date Type Department Care Team (Latest Contact Info) Description 07/25/2023 13:24 EST - 07/25/2023 23:59 EST [facility] Radiology Xray Outpatient - [address] [address] Pain in right ankle and joints of [...] use of insulin ([facility]) Inject 1 Each into the skin every 10 days. 9 Each 4 03/16/2023 Blood-Glucose Transmitter (DEXCOM G6 TRANSMITTER) deviceIndications:Typ e 2 diabetes mellitus with diabetic polyneuropathy, with long-term current use of insulin ([facility]) Inject 1 Each into the skin every 3 months. 1 Each 4 07/07/2023 empagliflozin (JARDIANCE) 25 mg tabletIndications:Typ e 2 diabetes mellitus with diabetic polyneuropathy, with long-term current use of insulin ([facility]) Take 1 Tablet by mouth daily. 90 Tablet 06/27/2023 gabapentin (NEURONTIN) 300 mg capsuleIndications:Di abetic polyneuropathy associated with type 2 diabetes mellitus ([facility]) Take 1 Capsule by mouth every morning AND 4 Capsules at bedtime. 450 Capsule 4 06/27/2023 insulin glargine (LANTUS SOLOSTAR/SEMGLEE) 100 unit/mL (3 mL) injection penIndications:Type 2 diabetes mellitus with diabetic polyneuropathy, with long-term current use of insulin ([facility]) Inject 44 Units into the skin at bedtime. 36 mL 06/27/2023 lidocaine 5 % (LIDODERM) 5 % patchIndications:Tester Electronic Scale gordo midline low back pain without sciatica [...] current use of insulin ([facility]) Take 1 Tablet by mouth [...] days (10 doses) 10 Tablet 11 12/17/2022 DULoxetine 40 mg capsule,delayed release(DR/EC)Indicat ions:Anxiety and depression Take 40 mg by mouth daily. 30 Capsule 11 12/17/2022 01/18/2024 HUMALOG KWIKPEN INSULIN 100 unit/mL injectable penIndications:Type 2 diabetes mellitus with diabetic polyneuropathy, with long-term current use of insulin ([facility]) 8 units with breakfast, 12 [...] [facility] Adult Primary Care - [address] [address] Carrington Calderon MD [address] [place] [phone] 02/27/2024 8:30 EDT Telemedicine [facility] Sleep Program - [address] [phone] Dwight Colbert [address] [place] [address] 02/29/2024 10:30 EDT Appointment [facility] Radiology Nuclear Medicine and PET - [address] [address] 02/29/2024 14:30 EDT Appointment [facility] Radiology Nuclear Medicine and PET [address] [address] 03/01/2024 8:00 EDT Appointment [facility] Radiology Nuclear Medicine and PET [address] [address] 03/01/2024 9:30 EDT Appointment [facility] Radiology Nuclear Medicine and PET [address] [address] documented as of this encounter Procedures Procedure [...] on the plantar surface of the calcaneus. [id number] Narrative 07/25/2023 16:12 EST EXAM/TECHNIQUE: XR ANKLE [...] on the plantar surface of the calcaneus. [id number] Kylah DAWSON IMG DIAGNOSTIC IMAGI NG ORDERABLES documented in this encounter Visit Diagnoses Diagnosis Pain in right ankle and joints of right foot documented in this encounter Care Teams House Calls Nurse Practitioner Relationship Specialty Start Date End Date Carrington Calderon MD 1 [facility] Level 1 [place] [phone] PCP - General Internal Medicine - Primary Care 12/09/20 Abigail Díaz Special Class Welder 04/21/23 01/03/24 documented as of this encounter
--- OUTSIDE RECORDS SUMMARY | 2024-02-06 13:31 | XMS_ITS | Encounter Summary ---
Author Organization [facility] Address [address] [place] [address] Care Team Providers Care Crimper Assembler Name Role Phone Carrington Calderon MD Primary Care Provi anders Reason for Visit * Reason Onset Date Comments Medications Refill 03/16/2023 Encounter Details Date Type Department Care Team (Late st Contact Info) Description 03/16/2023 Refill [facility] Adult Primary Care [address] [phone] Carrington Calderon MD 1 [facility] Level 1 [place] [phone] Medications Refill Social History Tobacco [...] 0946 EDT omeprazole (PRILOSEC) 20 mg capsule [[id number]] ?? Order Details Dose: 20 mg Route: oral Frequency: DAILY Dispense Quantity: 90 Capsule Refills: 3 ?? Sig: Take 1 Capsule by mouth daily. ?? Start Date: 12/17/22 End Date: -- Written Date: 12/17/22 ondansetron (ZOFRAN-ODT) 4 mg disintegrating tablet [[id number]] ?? Order Details Dose: 4 mg Route: oral Frequency: EVERY 8 HOURS PRN for Nausea Dispense Quantity: 30 Tablet Refills: 11 ?? Sig: Take 1 Tablet by mouth every 8 hours as needed for Nausea. ?? Start Date: 11/17/22 End Date: -- Written Date: 11/17/22 Expiration Date: -- ?? insulin glargine (LANTUS SOLOSTAR/SEMGLEE) 100 unit/mL (3 mL) injection pen [[id number]] ?? Order Details Dose: 40 Units Route: subcutaneous Frequency: AT BEDTIME Dispense Quantity: 36 mL Refills: 4 ?? Sig: Inject 40 Units into the skin at bedtime. ?? Start Date: 11/17/22 End Date: -- Written Date: 11/17/22 LORazepam (ATIVAN) 0.5 mg tablet [[id number]] ?? Order Details Dose: 0.5 mg Route: [...] 20 mg capsule [Carrington Calderon] Preferred pharmacy: [facility] [address] [place] [address] documented in this encounter Plan of Treatment Upcoming Encounters Date Type Department Care Team (Late st Contact Info) Description 02/21/2024 9:45 EDT Office Visit [facility] Adult Primary Care - [address] [phone] Carrington Calderon MD [address] [phone] 02/27/2024 8:30 EDT Telemedicine [facility] Sleep Program - [address] [phone] Dwight Colbert [address] [place] [phone] 02/29/2024 10:30 EDT Appointment [facility] Radiology Nuclear Medicine and PET - [address] 213431 02/29/2024 14:30 EDT Appointment [facility] Radiology Nuclear Medicine and PET - [address] [address] 03/01/2024 8:00 EDT Appointment [facility] Radiology Nuclear Medicine and PET [address] [address] 03/01/2024 9:30 EDT Appointment [facility] Radiology Nuclear Medicine and PET - [address] 276651 documented as of this encounter Visit Diagnoses Diagnosis Anxiety Anxiety state, unspecified Type 2 diabetes mellitus with diabetic polyneuropathy, with long-term current use of insulin ([facility]) Gastroparesis documented in this encounter Care Teams Crimper Assembler Relationship Specialty Start Date End Date Carrington Calderon MD 1 [facility] 1 [place] [phone] PCP - General Internal Medicine - Primary Care 12/09/20 documented as of this encounter
--- OUTSIDE RECORDS SUMMARY | 2024-02-06 13:31 | XMS_ITS | Encounter Summary ---
Author Organization [facility] Address [address] [place] [address] Care Team Providers Care Room Service Food Server Name Role Phone Carrington Calderon MD Primary Care Provi anders Abigail Díaz Unavailable Reason for Visit * Reason Comments Nicotine Dependence Encounter Details Date Type Department Care Team (Late st Contact Info) Description 05/24/2023 Community Health Team [facility] Adult Primary Care - [place] 1 [place], [place] [phone] Kylah Wilson Social History Tobacco Use Types [...] Info) Description 02/21/2024 9:45 EDT Office Visit [facility] Adult Primary Care - [address] 901351 Carrington Calderon MD [address] [phone] 02/27/2024 8:30 EDT Telemedicine [facility] Sleep Program - [address] [phone] Dwight Colbert [address] [place] [address] 02/29/2024 10:30 EDT Appointment [facility] Radiology Nuclear Medicine and PET - [address] [address] 02/29/2024 14:30 EDT Appointment [facility] Radiology Nuclear Medicine and PET [address] [address] 03/01/2024 8:00 EDT Appointment [facility] Radiology Nuclear Medicine and PET - [address] 118681 03/01/2024 9:30 EDT Appointment [facility] Radiology Nuclear Medicine and PET - [address] [address] documented as of this encounter Visit Diagnoses Not on filedocumented in this encounter Care Teams Room Service Food Server Relationship Specialty Start Date End Date Carrington Calderon MD [address] [place] [phone] PCP - General Internal Medicine - Primary Care 12/09/20 Abigail Díaz Liquor Grinding Mill Operator 04/21/23 01/03/24 documented as of this encounter
--- OUTSIDE RECORDS SUMMARY | 2024-02-06 13:31 | XMS_ITS | Encounter Summary ---
Author Organization [facility] Address [address] [place] [address] Care Team Providers Care Veterinary Inspector Name Role Phone Carrington Calderon MD Primary Care Provi anders Abigail Díaz Unavailable [phone] Reason for Visit * Reason Comments Nicotine Dependence Encounter Details Date Type Department Care Team (Late st Contact Info) Description 05/17/2023 Community Health Team [facility] Adult Primary Care - [place] 1 [place], [place] [phone] Kylah Wilson Social History Tobacco Use Types [...] [facility] - [address] [phone] Carrington Calderon MD [address] [phone] 02/27/2024 8:30 EDT Telemedicine [facility] Sleep Program - [address] [phone] Dwight Colbert [address] [place] [address] 02/29/2024 10:30 EDT Appointment [facility] Radiology Nuclear Medicine and PET - [address] 086771 02/29/2024 14:30 EDT Appointment [facility] Radiology Nuclear Medicine and PET [address] 564891 03/01/2024 8:00 EDT Appointment [facility] Radiology Nuclear Medicine and PET - [address] [phone] 03/01/2024 9:30 EDT Appointment [facility] Radiology Nuclear Medicine and PET - [address] [address] documented as of this encounter Visit Diagnoses Not on filedocumented in this encounter Care Teams Veterinary Inspector Relationship Specialty Start Date End Date Carrington Calderon MD 1 [facility] 1 [place] [phone] PCP - General Internal Medicine - Primary Care 12/09/20 Abigail Díaz Go Cart Mechanic 04/21/23 01/03/24 documented as of this encounter
--- OUTSIDE RECORDS SUMMARY | 2024-02-06 13:31 | XMS_ITS | Encounter Summary ---
Author Organization [facility] Address [address] [place] [address] Care Team Providers Care Tool Room Supervisor Name Role Phone Carly Calderon MD Primary Care Provi anders Abigail Díaz Unavailable Reason for Referral * Consult (Routine/Next Available) - Closed Specialty Diagnoses / Procedures Referred By Kit goode Referred To Contact Sleep Medicine Diagnoses Primary insomnia Carly Calderon MD [address] [phone] [facility] 1 [place] [address] Referral ID Status Reason Start Date Expiration Date V isits Requested Visits Authorized [id number] Closed Specialty Services Required 06/27/2023 1 1 Question Answer Reason for referral Diffifulty initiating sleep, Difficulty maintaining sleep Patient Type: Adult * Consult (Routine/Next Available) - Specialty Report Received Specialty Diagnoses / Procedures Referred By Kit goode Referred To Contact Hematology Diagnoses Night sweats Lymphocytosis Carly Calderon MD [address] [phone] [facility] Ep2 Hem/Onc [address] [place] [address] Referral ID Status Reason Start Date Expiration Date Visits Requested Visits Authorized [id number] Specialty Report Received Specialty Services Required 06/27/2023 1 1 Question Answer Reason for Request: night sweats Reason for Visit * Reason Comments Annual Exam Gynecologic Exam Encounter Details Date Type Department Care Team (Late st Contact Info) Description 06/27/2023 14:45 EST Office Visit [facility] [place] Adult Primary Care [facility] 1 [place], [place] [phone] Carly Calderon MD 1 [facility] Level 1 [place] [address] Cyclic vomiting syndrome (Primary Dx); Anxiety; Chronic midline low back pain without sciatica; Type 2 diabetes mellitus with diabetic polyneuropathy, with long-term current use of insulin (HCC-CMS); Primary insomnia; Diabetic polyneuropathy associated with type 2 diabetes mellitus ([facility]); Night sweats; Lymphocytosis; Cervical cancer screening; Candidal [...] in a half-way (including now)? No 06/14/2023 Interpersonal Safety Answer [...] with type 2 diabetes mellitus ([facility]) Take 1 Capsule by mouth every [...] use of insulin ([facility]) Take 1 Tablet by mouth daily. 90 Tablet 06/27/2023 empagliflozin (JARDIANCE) 25 mg tabletIndications:Type 2 diabetes mellitus with diabetic polyneuropathy, with long-term current use of insulin ([facility]) Take 1 Tablet by mouth daily. 90 Tablet 06/27/2023 insulin glargine (LANTUS SOLOSTAR/SEMGLEE) 100 unit/mL (3 mL) injection penIndications:Type 2 diabetes mellitus with diabetic polyneuropathy, with long-term current use of insulin ([facility]) Inject 44 Units into the skin at bedtime. 36 mL 06/27/2023 ondansetron (ZOFRAN-ODT) 4 mg disintegrating tabletIndications:Cyclic vomiting syndrome Take 1 Tablet by mouth every 8 hours as needed for Nausea. 30 Tablet 11 06/27/2023 SUMAtriptan (IMITREX) 20 mg/actuation nasal spray Instill 1 [place] into right nostril as needed for Migraine. 6 Each 06/27/2023 06/29/2023 HUMALOG KWIKPEN INSULIN 100 unit/mL injectable penIndications:Type 2 diabetes mellitus with diabetic polyneuropathy, with long-term current use of insulin ([facility]) 8 units with breakfast, 12 units [...] Notes * Carly Calderon MD - 06/27/2023 7571 EST Images from the original note were [...] current use of insulin ([facility]): CGM data reviewed in detail today. [...] polyneuropathy associated with type 2 diabetes mellitus ([facility]): We discussed considering an increase in [...] Luis Wilson present during the exam as refrigerator crater and cleaner assistant. - PAP TEST Candidal intertrigo: Rash [...] tried this. She continues to take Reglan ornxxm-wam-ylymy and both during and her episodes of [...] 02/21/2024 9:45 EDT Office Visit [facility] [place] Adult Primary Care - [address] [phone] Carly Calderon MD [address] [phone] 02/27/2024 8:30 EDT Telemedicine [facility] [place] Sleep Program - [address] [phone] Dwight Colbert [address] [place] [phone] 02/29/2024 10:30 EDT Appointment [facility] Radiology Nuclear Medicine and PET - [address] [phone] 02/29/2024 14:30 EDT Appointment [facility] Radiology Nuclear Medicine and PET [address] [address] 03/01/2024 8:00 EDT Appointment [facility] Radiology Nuclear Medicine and PET [address] [address] 03/01/2024 9:30 EDT Appointment [facility] Radiology Nuclear Medicine and PET [address] [address] Scheduled Referrals Name Type Priority Associated Diagnoses [...] Negative Negative 07/13/2023 16:25 EST [facility] Comment:No E6 or E7 mRNA is detected from HPV types 16,18,31,33,35,39,45,51,52,56,58,59,66, and 68 by grape crusher mediated amplification. Pap Test CERVIX UTERI STRUCTURE / Unknown 06/27/2023 16:00 EST 07/11/2023 13:44 EST Carly Calderon MD MICROBIOLOG Y - GENERAL ORDERABLES [facility] [address] [place] [phone] * PAP TEST (06/27/2023 16:00 EST) Specimens A. Cervix and/or Endocervix , ThinPrep Imaging System with Manual Evaluation 07/13/2023 16:25 [facility] Specimen Adequacy Satisfactory for Evaluation - transformation zone component absent 07/13/2023 16:25 [facility] General Categorization Negative for intraepithelial lesion or malignancy 07/13/2023 16:25 [facility] Attestation . 07/13/2023 16:25 [facility] at 1625 Clinical History screening 07/13/19 24 16:25 [facility] HPV The result for the Human Papillomavirus (HPV) Detection-High Risk Types is Negative. No E6 or E7 mRNA is detected from HPV types 16,18,31,33,35,39 ,45,51,52,56,58,5 9,66, and 68 by grape crusher mediated amplification.Lorena ting was performed on specimen [id number] and was resulted on 07/13/2023 1625 EST by JANET, LAB INSTRUMENT RESULTS IN 07/13/2023 16:25 [facility] Performing Lab [facility] 07/13/2023 16:25 [facility] Scanned Images 07/13/2023 16:25 [facility] Pap Test CERVIX UTERI STRUCTURE / Unknown 06/27/2023 16:00 EST 06/27/2023 16:00 EST Carly Calderon MD PATHOLOGY O RDERABLES [facility] [address] [place] [address] documented in this encounter Visit Diagnoses Diagnosis [...] Reorder 11/17/2022 06/27/2023 traMADol (ULTRAM) 50 mg tabletIndications:Polymerization Helper gordo midline low back pain without sciatica Take 1 Tablet by mouth every 6 hours as needed for Pain. Daily Max: 200 mg Reorder 02/01/2023 06/27/2023 blood glucose test strips One Touch Verio IQ or other brand compatible with meter and covered by patient's insurance. Testing QID. 08/11/2020 06/27/2023 blood glucose test strips Brand: FreeSvbtleyle Precision Cristo, use as directed if Freestyle Vignesh censor isnt working 10/06/2020 06/27/2023 blood glucose meterIndications:Type 2 diabetes mellitus with diabetic polyneuropathy, with long-term current use of insulin ([facility]) One Touch Verio Flex meter. 12/21/2021 06/27/2023 empagliflozin (JARDIANCE ORAL) Take by mouth. 06/27/2023 SEMGLEE,INSULIN GLARG-YFGN,PEN 100 unit/mL (3 mL) insulin pen INJECT 40 UNITS SUBCUTANEOUSLY AT BEDTIME 04/01/2023 06/27/2023 SITagliptin phosphate (JANUVIA) 100 mg tabletIndications:Type 2 diabetes mellitus with diabetic polyneuropathy, with long-term current use of insulin ([facility]) Take 1 Tablet by mouth daily. Reorder 11/17/2022 06/27/2023 insulin glargine (LANTUS SOLOSTAR/SEMGLEE) 100 unit/mL (3 mL) injection penIndications:Type 2 diabetes mellitus with diabetic polyneuropathy, with long-term current use of insulin ([facility]) Inject 40 Units into the skin at bedtime. Reorder 11/17/2022 06/27/2023 HUMALOG KWIKPEN INSULIN 100 unit/mL injectable penIndications:Type 2 diabetes mellitus with diabetic polyneuropathy, with long-term current use of insulin (HCC-CMS) Inject 12 Units into the skin 3 times daily with meals. Reorder 04/04/2023 06/27/2023 SUMAtriptan (IMITREX) 20 mg/actuation nasal spray Instill 1 [place] into right nostril as needed for Migraine. [...] as of this encounter Care Teams Tool Room Supervisor Relationship Specialty Start Date End Date Carly Calderon MD 1 [facility] 1 [place] [phone] PCP - General Internal Medicine - Primary Care 12/09/20 Abigail Díaz Water Leak Repairer 04/21/23 01/03/24 documented as of this encounter
--- OUTSIDE RECORDS SUMMARY | 2024-02-06 13:31 | XMS_ITS | Encounter Summary ---
Author Organization [facility] Address [address] [place] [address] Care Team Providers Care Cook At School Name Role Phone Carrington Calderon MD Primary Care Provi anders Abigail Díaz Unavailable [phone] Reason for Visit * Reason Comments New Patient Visit * Consult (Routine/Next Available) - Specialty Report Received Specialty Diagnoses / Procedures [facility] Referred To Contact Hematology Diagnoses Night sweats Lymphocytosis Carrington Calderon MD 1 [facility] 1 [place] [address] [facility] Ep2 Hem/Onc [address] [place] [address] Referral ID Status Reason Start Date Expiration Date Visits Requested Visits Authorized [id number] Specialty Report Received Specialty Services Required 06/27/2023 1 1 Encounter Details Date Type Department Care Team (Late st Contact Info) Description 08/05/2023 11:00 EST Office Visit [facility] Hematology & Oncology - [address] [phone] Josh Clayton MD 111 [facility] 2 [place] [phone] Bandemia (Primary Dx) Social History Tobacco Use [...] in a correction (including now)? No 06/14/2023 Interpersonal Safety Answer [...] results, and documentation. 08/05/2023 Josh Clayton MD Mutual Fund Accountant, Division of Hematology / Oncology [facility] -------- NON FACE TO FACE PROLONGED SERVICES Date of related Tria-mg-Yhbm encounter 08/05/2023. Pre visit preparation performed on [...] [facility] Adult Primary Care - [address] [phone] Carrington Calderon MD [address] [phone] 02/27/2024 8:30 EDT Telemedicine [facility] Sleep Program - [address] [phone] Dwight Colbert [address] [place] [phone] 02/29/2024 10:30 EDT Appointment [facility] Radiology Nuclear Medicine and PET - [address] [phone] 02/29/2024 14:30 EDT Appointment [facility] Radiology Nuclear Medicine and PET [address] [address] 03/01/2024 8:00 EDT Appointment [facility] Radiology Nuclear Medicine and PET - [address] [address] 03/01/2024 9:30 EDT Appointment [facility] Radiology Nuclear Medicine and PET [address] [phone] documented as of this encounter Visit Diagnoses Diagnosis Bandemia- Primary documented in this encounter Care Teams Cook At School Relationship Specialty Start Date End Date Carrington Calderon MD 1 [facility] 1 [place] [address] PCP - General Internal Medicine - Primary Care 12/09/20 Abigail Díaz Customer Solutions Specialist 04/21/23 01/03/24 documented as of this encounter
--- OUTSIDE RECORDS SUMMARY | 2024-02-06 13:31 | XMS_ITS | Encounter Summary ---
Author Organization [facility] Address [address] [place] [address] Care Team Providers Care Production Control Expert Name Role Phone Carrington Calderon MD Primary Care Provi anders Abigail Díaz Unavailable Carmelo Hendrickson Unavailable Unavailable Abigail Díaz Unavailable Reason for Visit * Reason Comments Medications Refill Encounter Details Date Type Department Care Team (Late st Contact Info) Description 03/31/2023 Refill [facility] Adult Primary Care - [address] [phone] Vicki Mosqueda MD [address] [place] [phone] Medications Refill Social History Tobacco Use Types [...] slept in a longterm (including now)? No 11/17/2022 Interpersonal Safety Answer [...] Sig: INJECT 40 UNITS SUBCUTANEOUSLY AT BEDTIME [facility] [address] [place] [address] Confirmed Pharmacy? Yes Patient out of medication? Unknown How many pills does patient have left? unknown Last Refill Date: 11/17/22 Refills left? (explain exceptions requiring early refill) No Recent Visits Date Type Provider Dept 11/17/22 Office Visit Carrington Calderon MD [facility] Adult Prim Care 09/02/22 Office Visit Nimisha Clifton NP [facility] Adult Prim Care 05/20/22 Office Visit Rachel Stein PA-C [facility] Adult Prim Care Showing recent visits within past 540 days with a meds authorizing provider and meeting all other requirements Future Appointments Date Type Provider Dept 06/27/23 Appointment Carrington Calderon MD [facility] Adult Prim Care Showing future appointments within next 150 days with a meds authorizing provider and meeting all other requirements Future appointment: Already Scheduled JSOS WASHINGTON RN 04/01/2023 10:43 documented in this encounter Plan of Treatment Upcoming Encounters Date Type Department Care Team (Late st Contact Info) Description 02/21/2024 9:45 EDT Office Visit [facility] Adult Primary Care - [address] [phone] Carrington Calderon MD [address] [phone] 02/27/2024 8:30 EDT Telemedicine [facility] Sleep Program [address] [phone] Dwight Colbert [address] [place] [phone] 02/29/2024 10:30 EDT Appointment [facility] Radiology Nuclear Medicine and PET [address] [phone] 02/29/2024 14:30 EDT Appointment [facility] Radiology Nuclear Medicine and PET [address] [phone] 03/01/2024 8:00 EDT Appointment [facility] Radiology Nuclear Medicine and PET [address] [phone] 03/01/2024 9:30 EDT Appointment [facility] Radiology Nuclear Medicine and PET [address] [phone] documented as of this encounter Visit Diagnoses Not on filedocumented in this encounter Care Teams Production Control Expert Relationship Specialty Start Date End Date Carrington Calderon MD [address] [place] [phone] PCP - General Internal Medicine - Primary Care 12/09/20 Abigail Díaz Barrel Marker 04/21/23 01/03/24 Carmelo Hendrickson Coordinator 12/01/23 Abigail Díaz Barrel Marker 01/04/24 documented as of this encounter
--- OUTSIDE RECORDS SUMMARY | 2024-02-06 13:31 | XMS_ITS | Encounter Summary ---
Author Organization [facility] Address [address] [place] [address] Care Team Providers Care Subway Car Repairer Name Role Phone Carrington Calderon MD Primary Care Provi anders Amrita Asencio Unavailable Reason for Referral * Consult (Routine/Next Available) - Closed Specialty Diagnoses / Procedures Referred By Kit goode Referred To Contact Diagnoses Carrington Rothman MD [address] [phone] [facility] Health Team [address] [place] [address] Referral ID Status Reason Start Date Expiration Date V isits Requested Visits Authorized [id number] Closed Specialty Services Required 04/21/2023 1 0 Question Answer Reason for Request: smoking cessation * Referral (Routine/Next Available) - Authorization Not Required Specialty Diagnoses / Procedures Referred By Kit goode Referred To Contact Multidisciplinary Diagnoses Carrington Rohtman MD [address] [phone] [facility] Health Team 128 [facility], [address] [address] Referral ID Status Reason Start Date Expiration Date Visits Requested Visits Authorized [id number] Authorization Not Required Specialty Services Required 04/21/20 23 1 1 Question Answer Reason for Request: tobacco cessation support Encounter Details Date Type Department Care Team (Late st Contact Info) Description 04/21/2023 Patient Outreach [facility] Adult Primary Care [address] [address] Bre Amrita Smoking (Primary Dx) Social History [...] polyneuropathy, with long-term current use of insulin ([facility]) ([facility]) ?? Gastrointestinal/Abdominal Gastroparesis ?? Psychiatric Anxiety and depression ?? Musculoskeletal Chronic midline low back pain without sciatica Neuropathic diabetic ulcer of foot ([facility]) Family history of rheumatoid arthritis ?? Neurological [...] Group Num 1. BC[place] BCB* ASUNCOIN LUO 05/08/1986 Male Spouse [id number] 02/[birth year] [id number] [place] [address] 2. MEDICAID ACO * CRISTY LUO 1985 Female Self [id number] [birth year]06/22 [address] Any gaps or barriers with healthcare insurance coverage: No DME: scooter, due to amputee diabetic sensor DME vendor: [employer] secondary insurance covers supplies Barriers to using [...] today within 1 week and will contact home care and home health aides teacher if additional assistance is needed as discussed. 2. stella will schedule a counseling appointment with at least one of the counselors provided today within 1 week and will follow up with home care and home health aides teacher at next scheduled follow up on within [...] some marijuana use to combat anxiety symptoms plastic surgery manager reviewed current mental health resources with [...] / [facility] Adult Primary Care - [address] [phone] Crarington Calderon MD [address] [phone] 02/27/2024 8:30 EDT Telemedicine [facility] Sleep Program - [address] [phone] Dwight Colbert [address] [place] [phone] 02/29/2024 10:30 EDT Appointment [facility] Radiology Nuclear Medicine and PET [address] [id number] 02/29/2024 14:30 EDT Appointment [facility] Radiology Nuclear Medicine and PET [address] [phone] 03/01/2024 8:00 EDT Appointment [facility] Radiology Nuclear Medicine and PET [address] [phone] 03/01/2024 9:30 EDT Appointment [facility] Radiology Nuclear Medicine and PET [address] [phone] Scheduled Referrals Name Type Priority Associated Diagnoses Order Schedule AMB CONS/FOLLOW UP OUTPATIENT CARE MANAGEMENT - [facility] Outpatient Referral Routine Consult Smoking Expected: 04/28/2023 (Approximate), Expires: 04/21/2024 AMB CONS/FOLLOW UP SMOKING CESSATION PROGRAM Outpatient Referral Routine Consult Smoking Expected: 04/28/2023 (Approximate), Expires: 04/21/2024 documented as of this encounter Visit Diagnoses Diagnosis Smoking- Primary Tobacco use disorder documented in this encounter Care Teams Subway Car Repairer Relationship Specialty Start Date End Date Carrington Calderon MD [address] [place] [phone] PCP - General Internal Medicine - Primary Care 12/09/20 Amrita Asencio Well Drill Operator Cable Tool 04/21/23 01/03/24 documented as of this encounter
--- OUTSIDE RECORDS SUMMARY | 2024-02-06 13:31 | XMS_ITS | Encounter Summary ---
Author Organization [facility] Address [address] [place] [address] Care Team Providers Care Supervisor Dehydrogenation Name Role Phone Carrington Calderon MD Primary Care Provi anders Abigail Díaz Unavailable Reason for Visit * Reason Comments Consult * Consult (Routine/Next Available) - Specialty Report Received Specialty Diagnoses / Procedures Referred By Kit goode Referred To Contact Obstetrics & Gynecology Diagnoses IUD contraception Carrington Calderon MD 1 [facility] 1 [place] [address] [facility] Obgyn [address] [place] [address] Referral ID Status Reason Start Date Expiration Date Visits Requested Visits Authorized [id number] Specialty Report Received Specialty Services Required 3 1 1 Encounter Details Date Type Department Care Team (Late st Contact Info) Description 08/05/2023 13:00 EST Initial consult [facility] Women's Services - [address] [address] Kamini Vega MD 111 [facility] 4 [place] [address] Encounter for IUD insertion (Primary [...] in a fpc (including now)? No 06/14/2023 Interpersonal Safety Answer [...] pt has a referral for therapy. Diabetes ([facility]) A1c 10.3 on 11/28/2019 - poorly controlled Diabetes mellitus, type 2 ([facility]) pt check blood sugars at home- X [...] withdrawn slightly and arms deployed as per metal bonding crib attendant specifications. Applicator removed Strings trimmed to 3 cm Tenaculum removed. No bleeding from tenaculum sites. Speculum removed. Patient tolerated procedure well. Kamini Vega MD 08/05/2023 13:02 documented in this encounter Plan of Treatment Upcoming Encounters Date Type Department Care Team (Late st Contact Info) Description 02/21/2024 9:45 EDT Office Visit [facility] Adult Primary Care - [address] [phone] Carrington Calderon MD [address] [phone] 02/27/2024 8:30 EDT Telemedicine [facility] Sleep Program - [address] [phone] Dwight Colbert [address] [place] [phone] 02/29/2024 10:30 EDT Appointment [facility] Radiology Nuclear Medicine and PET [address] [phone] 02/29/2024 14:30 EDT Appointment [facility] Radiology Nuclear Medicine and PET [address] [phone] 03/01/2024 8:00 EDT Appointment [facility] Radiology Nuclear Medicine and PET [address] [phone] 03/01/2024 9:30 EDT Appointment [facility] Radiology Nuclear Medicine and PET [address] [phone] documented as of this encounter Visit Diagnoses [...] at 1345, Until Tue08/03/30 at 1344, Per [facility] P &T Committee, use is restricted to outpatient clinics and the OR. LARC approved for inpatient use includes Mirena, Nexplanon, and Paragard only for patients covered by [facility]., Routine IUD Insertion 08/05/2023 13:18 EST 1 Each documented in this encounter Orders Medications Ordered That Stan ht Not Have Been Administered Count Last Ordered Date First Ordered Date levonorgestreL (MIRENA) 21 m cg/24 hours (8 yrs) 52 mg IUD 1 Each 1 08/05/2023 documented in this encounter Care Teams Supervisor Dehydrogenation Relationship Specialty Start Date End Date Carrington Calderon MD [address] [facility] 1 [place] [phone] PCP - General Internal Medicine - Primary Care 12/09/20 Abigail Díaz Tape Folding Machine Operator 04/21/23 01/03/24 documented as of this encounter
--- OUTSIDE RECORDS SUMMARY | 2024-02-06 13:31 | XMS_ITS | Encounter Summary ---
Author Organization [facility] Address [address] [place] [address] Care Team Providers Care Compliance Spec Name Role Phone Carrington Calderon MD Primary Care Provi anders Abigail Díaz Unavailable [phone] Carmelo Hendrickson Unavailable Unavailable Abigail Díaz Unavailable [phone] Reason for Visit * Reason Comments Med Change Request Encounter Details Date Type Department Care Team (Late st Contact Info) Description 06/29/2023 [facility] Adult Primary Care - [address] [address] Carrington Calderon MD 1 [facility] Level 1 [place] [phone] Med Change Request Social History Tobacco Use [...] INTO RIGHT NOSTRIL NEEDED FOR MIGRAINE HEADACHE [facility] [address] [place] [address] Confirmed Pharmacy? Yes Patient out of medication? Unknown How many pills does patient have left? unknown Last Refill Date: 06/27/23 Refills left? (explain exceptions requiring early refill) No Recent Visits Date Type Provider Dept 06/27/23 Office Visit Carrington Calderon MD [facility] Adult Prim Care 11/17/22 Office Visit Carrington Calderon MD [facility] Adult Prim Care 09/02/22 Office Visit Nimisha Clifton NP [facility] Adult Prim Care 05/20/22 Office Visit Rachel Stein PA-C [facility] Adult Prim Care Showing recent visits within past 540 days with a meds authorizing provider and meeting all other requirements Future Appointments Date Type Provider Dept 08/15/23 Appointment Carrington Calderon MD [facility] Adult Prim Care Showing future appointments within next 150 days with a meds authorizing provider and meeting all other requirements Future appointment: Already Scheduled JOSS WASHINGTON RN 06/29/2023 16:19 documented in this encounter Plan of Treatment Upcoming Encounters Date Type Department Care Team (Late st Contact Info) Description 02/21/2024 9:45 EDT Office Visit [facility] Adult Primary Care - [address] [phone] Carrington Calderon MD [address] [place] [phone] 02/27/2024 8:30 EDT Telemedicine [facility] Sleep Program - [address] 920281 Dwight Colbert [address] [place] [address] [phone] 02/29/2024 10:30 EDT Appointment [facility] Radiology Nuclear Medicine and PET [address] [phone] 02/29/2024 14:30 EDT Appointment [facility] Radiology Nuclear Medicine and PET [address] [phone] 03/01/2024 8:00 EDT Appointment [facility] Radiology Nuclear Medicine and PET [address] [phone] 03/01/2024 9:30 EDT Appointment [facility] Radiology Nuclear Medicine and PET [address] [phone] documented as of this encounter Visit Diagnoses Not on filedocumented in this encounter Discontinued Medications Medication Sig Discontinue Reason Start Date End Da te SUMAtriptan (IMITREX) 20 mg/actuation nasal spray Instill 1 [place] into right nostril as needed for Migraine. 06/27/2023 06/29/2023 documented as of this encounter Care Teams Compliance Spec Relationship Specialty Start Date End Date Carrington Calderon MD 1 [facility] 1 [place] [phone] PCP - General Internal Medicine - Primary Care 12/09/20 Abigail Daíz Greaser And Oiler 04/21/23 01/03/24 Carmelo Hendrickson Coordinator 12/01/23 Abigail Díaz Greaser And Oiler 01/04/24 documented as of this encounter
--- OUTSIDE RECORDS SUMMARY | 2024-02-06 13:31 | XMS_ITS | Encounter Summary ---
Author Organization Health system Address [address] [place] [address] Care Team Providers Care Die Equipment Operator Name Role Phone Carrington Calderon MD Primary Care Provi anders Reason for Referral * Referral (Routine/Next Available) - Specialty Report Received Specialty Diagnoses / Procedures [facility] Referred To Contact Multidisciplinary Diagnoses Adjustment reaction with anxiety and depression Carrington Calderon MD [address] [place] [phone] [facility] Community Health Team [address] [facility] [address] [place] [address] Referral ID Status Reason Start Date Expiration Date Visits Requested Visits Authorized [id number] Specialty Report Received Specialty Services Required 3 1 1 Question Answer Reason for Request: community therapist Reason for Visit * Reason Onset Date Comments Referral Request 03/28/2023 Encounter Details Date Type Department Care Team (Late st Contact Info) Description 03/28/2023 Telephone [facility] Adult Primary Care - [address] [phone] Carrington Calderon MD [address] [phone] Referral Request Social History Tobacco Use Types [...] the short-term targeted therapy available through our [facility]. With this in mind, I have signed a medical home/care management referral so that she can be connected with a psych social worker to help her through this [...] [facility] - [address] [address] Carrington Calderon MD [address] [phone] 02/27/2024 8:30 EDT Telemedicine [facility] Sleep Program - [address] 210321 Dwight Colbert [address] [place] [address] [phone] 02/29/2024 10:30 EDT Appointment [facility] Radiology Nuclear Medicine and PET - [address] [phone] 02/29/2024 14:30 EDT Appointment [facility] Radiology Nuclear Medicine and PET - [facility] [address] [place], [place] [phone] 03/01/2024 8:00 EDT [facility]ointment [facility] Radiology Nuclear Medicine and PET [address] [address] 03/01/2024 9:30 EDT Appointment [facility] Radiology Nuclear Medicine and PET [address] [address] Scheduled Referrals Name Type Priority Associated Diagnoses Order Schedule AMB CONS/FOLLOW UP OUTPATIENT CARE MANAGEMENT - [facility] Outpatient Referral Routine/Next Available Adjustment reaction with anxiety and depression Expected: 04/05/2023 (Approximate), Expires: 03/29/2024 documented as of this encounter Visit Diagnoses Diagnosis Adjustment reaction with anxiety and depression- Primary Adjustment disorder with mixed anxiety and depressed mood documented in this encounter Care Teams Die Equipment Operator Relationship Specialty Start Date End Date Carrington Calderon MD 1 [facility] 1 [place] [address] PCP - General Internal Medicine - Primary Care 12/09/20 documented as of this encounter
--- OUTSIDE RECORDS SUMMARY | 2024-02-06 13:31 | XMS_ITS | Encounter Summary ---
Author Organization [facility] Address [address] [place] [address] Care Team Providers Care Steel Construction Worker Name Role Phone Carrington Calderon MD Primary Care Provi anders Reason for Visit * Reason Onset Date Comments Prior Auth, Medication 04/03/2023 Encounter Details Date Type Department Care Team (Late st Contact Info) Description 04/03/2023 Telephone [facility] Adult Primary Care [address] [phone] Carrington Calderon MD 1 [facility] Level 1 [place] [phone] Prior Auth, Medication Social History [...] with long-term current use of insulin ([facility]) Inject 12 Units into the skin 3 [...] [facility] Adult Primary Care - [address] 188101 Carrington Calderon MD [address] [phone] 02/27/2024 8:30 EDT Telemedicine [facility] Sleep Program - [address] [address] Dwight Colbert [address] [place] [address] 02/29/2024 10:30 EDT [facility] Radiology Nuclear Medicine and PET - [address] [address] 02/29/2024 14:30 EDT [facility] Radiology Nuclear Medicine and PET - [address] [phone] 03/01/2024 8:00 EDT [facility] Radiology Nuclear Medicine and PET - [address] [phone] 03/01/2024 9:30 EDT Appointment [facility] Radiology Nuclear Medicine and PET [address] [address] documented as of this encounter Visit Diagnoses Diagnosis Type 2 diabetes mellitus with diabetic polyneuropathy, with long-term current use of insulin ([facility])- Primary documented in this encounter Discontinued Medications Medication Sig Discontinue Reason Start Date End Da te NOVOLOG FLEXPEN U-100 INSULIN 100 unit/mL (3 mL) injectable penIndications:Type 2 diabetes mellitus with diabetic polyneuropathy, with long-term current use of insulin ([facility]) INJECT 12 UNITS THREE TIMES DAILY WITH MEALS Insurance does not cover 04/01/2023 04/04/2023 insulin lispro (HUMALOG KWIKPEN INSULIN) 100 unit/mL injectable penIndications:Type 2 diabetes mellitus with diabetic polyneuropathy, with long-term current use of insulin ([facility]) Inject 8-14 Units into the skin 3 times daily with meals. Reorder 11/18/2022 04/04/2023 documented as of this encounter Care Teams Steel Construction Worker Relationship Specialty Start Date End Date Carrington Calderon MD 1 [facility] 1 [place] [address] PCP - General Internal Medicine - Primary Care 12/09/20 documented as of this encounter
--- OUTSIDE RECORDS SUMMARY | 2024-02-06 13:31 | XMS_ITS | Encounter Summary ---
Author Organization [facility] Address [address] [place] [address] Care Team Providers Care Fire Regulator Name Role Phone Carrington Calderon MD Primary Care Provi anders Abigail Díaz Unavailable Carmelo Hendrickson Unavailable Unavailable Abigail Díaz Unavailable Reason for Visit * Reason Comments Medications Refill Encounter Details Date Type Department Care Team (Late st Contact Info) Description 03/31/2023 Refill [facility] Adult Primary Care - [address] [address] Carrington Calderon MD 1 [facility] Level 1 [place] [phone] Medications Refill Social History Tobacco Use Types [...] polyneuropathy, with long-term current use of insulin ([facility]) INJECT 12 UNITS THREE TIMES DAILY WITH [...] 12 UNITS THREE TIMES DAILY WITH MEALS [facility] [address] [place] [address] Confirmed Pharmacy? Yes Patient out of medication? Unknown How many pills does patient have left? unknown Last Refill Date: 11/18/22 Refills left? (explain exceptions requiring early refill) No Recent Visits Date Type Provider Dept 11/17/22 Office Visit Carrington Calderon MD [facility] Adult Prim Care 09/02/22 Office Visit Nimisha Clifton NP [facility] Adult Prim Care 05/20/22 Office Visit Rachel Stein PA-C [facility] Adult Prim Care Showing recent visits within past 540 days with a meds authorizing provider and meeting all other requirements Future Appointments Date Type Provider Dept 01/22/24 Appointment Carrington Calderon MD [facility] Adult Prim Care Showing future appointments within next 150 days with a meds authorizing provider and meeting all other requirements Future appointment: Already Scheduled JOSS WASHINGTON RN 04/01/2023 10:34 documented in this encounter Plan of Treatment Upcoming Encounters Date Type Department Care Team (Late st Contact Info) Description 02/21/2024 9:45 EDT Office Visit [facility] Adult Primary Care - [address] [phone] Carrington Calderon MD [address] [place] [phone] 02/27/2024 8:30 EDT Telemedicine [facility] Sleep Program - [address] 280891 Dwight Colbert [address] [place] [address] [phone] 02/29/2024 10:30 EDT Appointment [facility] Radiology Nuclear Medicine and [address] [phone] 02/29/2024 14:30 EDT Appointment [facility] Radiology Nuclear Medicine and PET [address] [phone] 03/01/2024 8:00 EDT Appointment [facility] Radiology Nuclear Medicine and PET [address] [phone] 03/01/2024 9:30 EDT Appointment [facility] Radiology Nuclear Medicine and PET [address] [phone] documented as of this encounter Visit Diagnoses Diagnosis Type 2 diabetes mellitus with diabetic polyneuropathy, with long-term current use of insulin ([facility]) documented in this encounter Care Teams Fire Regulator Relationship Specialty Start Date End Date Carrington Calderon MD [address] [place], [place] [address], [place] [phone] PCP - General Internal Medicine - Primary Care 12/09/20 Abigail Díaz Engraver Optical Frames 04/21/23 01/03/24 Carmelo Hendrickson Coordinator 12/01/23 Abigail Díaz Eng[employer]ames 01/04/24 documented as of this encounter
--- OUTSIDE RECORDS SUMMARY | 2024-02-06 13:31 | XMS_ITS | Encounter Summary ---
Author Organization [facility] Address [address] [place] [address] Care Team Providers Care Ballast Cleaning Machine Operator Name Role Phone Carrington Calderon MD Primary Care Provi anders Abigail Díaz Unavailable [phone] Carmelo Hendrickson Unavailable Unavailable Reason for Referral * Consult (Routine/Next Available) - Specialty Report Received Specialty Diagnoses / Procedures [facility] Referred To Contact Obstetrics & Gynecology Diagnoses IUD contraception Carrington Calderon MD [address] [phone] [facility] [address] [place] [address] Referral ID Status Reason Start Date Expiration Date Visits Requested Visits Authorized [id number] Specialty Report Received Specialty Services Required 3 1 1 Question Answer Reason for Request: IUD placement Reason for Visit * Reason Onset Date Comments Referral Request 06/01/2023 Encounter Details Date Type Department Care Team (Late st Contact Info) Description 06/01/2023 Telephone [facility] Adult Primary Care - [address] [address] Carrington Calderon MD [address] [phone] Referral Request Social History Tobacco Use Types Packs/Day Years Used Date Smoking Tobacco: Former Cigarettes 0.5 13.2 S tarted: 11/10/2010 Smokeless Tobacco: Never Comments:06/13/20 actively try ing to quit about 5-8 cigs/day Alcohol Use Standard Drinks/Week Comments Yes 0 (1 standard drink = 0.6 oz pur e alcohol) rarely [facility] Utilities Answer Date Recorded In the past 12 months has th e [employer], gas, oil, or water [employer] threatened to shut off services in your [...] is calling to get a referral to [facility] [employer] for a Kriss placement. documented in this encounter Plan of Treatment Upcoming Encounters Date Type Department Care Team (Late st Contact Info) Description 02/21/2024 9:45 EDT Office Visit [facility] Adult Primary Care - [address] [phone] Carrington Calderon MD [address] [phone] 02/27/2024 8:30 EDT Telemedicine [facility] Sleep Program - [address] 359131 Dwight Colbert [address] [place] [phone] 02/29/2024 10:30 EDT Appointment [facility] Radiology Nuclear Medicine and [address] [phone] 02/29/2024 14:30 EDT Appointment [facility] Radiology Nuclear Medicine and [address] [phone] 03/01/2024 8:00 EDT Appointment [facility] Radiology Nuclear Medicine and PET [address] [phone] 03/01/2024 9:30 EDT Appointment [facility] Radiology Nuclear Medicine and [address] [phone] Scheduled Referrals Name Type Priority Associated Diagnoses Orde r Schedule AMB CONS/FOLLOW UP GYNECOLOGY Outpatient Referral Routine/Next Available IUD contraception Expected: 06/08/2023 (Approximate), Expires: 06/01/2024 documented as of this encounter Visit Diagnoses Diagnosis IUD contraception- Primary Presence of intrauterine contraceptive device documented in this encounter Care Teams Ballast Cleaning Machine Operator Relationship Specialty Start Date End Date Carrington Calderon MD 1 [facility] 1 [place] [phone] PCP - General Internal Medicine - Primary Care 12/09/20 Abigail Díaz Convalescent Sitter 04/21/23 01/03/24 Carmelo Hendrickson Coordinator 12/01/23 documented as of this encounter
--- OUTSIDE RECORDS SUMMARY | 2024-02-06 13:31 | XMS_ITS | Encounter Summary ---
Author Organization [facility] Address [address] [place] [address] Care Team Providers Care Program Writer Name Role Phone Carrington Calderon MD Primary Care Provi anders Abigail Díaz Unavailable Reason for Visit * Reason Onset Date Comments Results 07/25/2023 XRAY right ankle Encounter Details Date Type Department Care Team (Late st Contact Info) Description 07/25/2023 Telephone [facility] Adult Primary Care - [address] [address] Carrington Calderon MD 1 [facility] Level [address] [place] [phone] Results (XRAY right ankle) Social History [...] slept in a long-term (including now)? No 06/14/2023 Interpersonal Safety Answer [...] [facility] Adult Primary Care - [address] 158111 Carrington Calderon MD [address] [phone] 02/27/2024 8:30 EDT Telemedicine [facility] Sleep Program - [address] [address]75111 Dwight Colbert [address] [place] [address] [phone] 02/29/2024 10:30 EDT Appointment [facility] Radiology Nuclear Medicine and PET - Main [address] [address] 02/29/2024 14:30 EDT [facility] Radiology Nuclear Medicine and PET - [address] [address] 03/01/2024 8:00 EDT Appointment [facility] Radiology Nuclear Medicine and PET [address] [address] 03/01/2024 9:30 EDT [facility]ointment [facility] Radiology Nuclear Medicine and PET - [address] [address] documented as of this encounter Visit Diagnoses Not on filedocumented in this encounter Care Teams Program Writer Relationship Specialty Start Date End Date Carrington Calderon MD 1 [facility] 1 [place] [address] PCP - General Internal Medicine - Primary Care 12/09/20 Abigail Díaz Office Equipment Technician 04/21/23 01/03/24 documented as of this encounter
--- OUTSIDE RECORDS SUMMARY | 2024-02-06 13:31 | XMS_ITS | Encounter Summary ---
Author Organization [facility] Address [address] [place] [address] Care Team Providers Care System Support Analyst Name Role Phone Carrington Calderon MD Primary Care Provi anders Abigail Díaz Unavailable [phone] Reason for Visit * Reason Comments Med Change Request Encounter Details Date Type Department Care Team (Late st Contact Info) Description 06/27/2023 [facility] Adult Primary Care - [address] [address] Carrington Calderon MD [address] [phone] Med Change Request Social History [...] [facility] [address] [phone] Carrington Calderon MD 1 [facility] 1 [place] [phone] 02/27/2024 8:30 EDT Telemedicine [facility] Sleep Program - [address] 388491 Dwight Colbert [address] [place] [phone] 02/29/2024 10:30 EDT Appointment [facility] Radiology Nuclear Medicine and PET - [address] [phone] 02/29/2024 14:30 EDT Appointment [facility] Radiology Nuclear Medicine and PET - [address] [phone] 03/01/2024 8:00 EDT Appointment [facility] Radiology Nuclear Medicine and PET - [address] [address] 03/01/2024 9:30 EDT Appointment [facility] Radiology Nuclear Medicine and PET - [address] [address] documented as of this encounter Visit Diagnoses Not on filedocumented in this encounter Care Teams System Support Analyst Relationship Specialty Start Date End Date Carrington Calderon MD 1 [facility] 1 [place] [phone] PCP - General Internal Medicine - Primary Care 12/09/20 Abigail Díaz Cad Draftsman 04/21/23 01/03/24 documented as of this encounter
--- OUTSIDE RECORDS SUMMARY | 2024-02-06 13:32 | XMS_ITS | Encounter Summary ---
Author Organization [facility] Address [address] [place] [address] Care Team Providers Care Negative Cleaner Name Role Phone Carrington Calderon MD Primary Care Provi anders Abigail Díaz Unavailable Carmelo Hendrickson Unavailable Unavailable Abigail Díaz Unavailable Reason for Visit * Reason Onset Date Comments Coordination Of Care 02/17/2023 Encounter Details Date Type Department Care Team (Late st Contact Info) Description 02/17/2023 Telephone [facility] Adult Primary Care - [address] [phone] Carrington Calderon MD [address] [phone] Coordination Of Care Social History Tobacco Use [...] 02/21/2024 9:45 EDT Office Visit [facility] Adult Primary Care [address] [phone] Carrington Calderon MD [address] [phone] 02/27/2024 8:30 EDT Telemedicine [facility] Sleep Program - [address] [phone] Dwight Colbert [address] [place] [address] [phone] 02/29/2024 10:30 EDT Appointment [facility] Radiology Nuclear Medicine and PET - [address] [phone] 02/29/2024 14:30 EDT Appointment [facility] Radiology Nuclear Medicine and PET [address] [id number] 03/01/2024 8:00 EDT Appointment [facility] Radiology Nuclear Medicine and PET [address] [phone] 03/01/2024 9:30 EDT Appointment [facility] Radiology Nuclear Medicine and PET [address] [phone] documented as of this encounter Results * (ABNORMAL) COMPLETE BLOOD COUNT AND DIFFERENTIAL (03/14/2023 15:19 EDT) WBC 18.08(H) 4.00 - 12.40 K/cmm 03/14/2023 16:23 [facility] RBC 4.40 3.86 - 5.04 M/cmm 03/14/2023 16:23 [facility] Hemoglobin 14.0 11.6 - 15.2 g/dL 03/14/2023 16:23 [facility] HCT 40.6 34.9 - 44.4 % 03/14/2023 16:23 [facility] MCV 92 81 - 98 fL 03/14/2023 16:23 [facility] MCH 31.8 26.7 - 33.3 pg 03/14/2023 16:23 [facility] MCHC 34.5 32.1 - 35.9 g/dL 03/14/2023 16:23 [facility] RDW-CV 12.6 <14.7 % 03/14/2023 16:23 [facility] RDW-SD 42.6 <50.4 fl 03/14/2023 16:23 [facility] PLT 412(H) 141 - 377 K/cmm 03/14/2023 16:23 [facility] MPV 9.3(L) 9.5 - 12.7 fL 03/14/2023 16:23 [facility] Blood VENOUS BLOOD / Unknown Venipuncture / Unknown 03/14/2023 15:19 EDT 03/14/2023 15:19 EDT Carrington Calderon MD PACKAGES & DNA PROBE ORDERABLES [facility] [address] [place] [address] * (ABNORMAL) HEMOGLOBIN A1C (03/14/2023 15:19 EDT) Pathologist [facility] Hemoglobin A1c 8.3(H) <5.7 % 03/14/2023 22:02 [facility] Comment: Glycemic Status References: Normal: ??<5.7% Pre-Diabetes: ??5.7% - 6.4% Diagnostic of Diabetes: ??> or = 6.5% (if confirmed) Est Avg Glucose 192 mg/dL 22:02 [facility] Comment:The eAG represents t he A1c result expressed as average glucose in mg/dL. Blood VENOUS BLOOD / Unknown Venipuncture / Unknown 03/14/2023 15:19 EDT 03/14/2023 15:19 EDT Carrington Calderon MD CHEMISTRY & BLOOD GAS ORDERABLES Performing Organization Address City/State/[facility] Co de Phone Number [facility] [address] [place] [address] * (ABNORMAL) BASIC METABOLIC PANEL (BMP) (03/14/2023 15:19 EDT) Pathologist [facility] Sodium 142 136 - 145 mmol/L 03/14/2023 16:50 [facility] Potassium 4.2 3.5 - 5.0 mmol/L 03/14/2023 16:50 [facility] Chloride 103 96 - 110 mmol/L 03/14/2023 16:50 [facility] CO2 Total 25 22 - 32 mmol/L 03/14/2023 16:50 [facility] Anion Gap 14 5 - 14 mmol/L 03/14/2023 16:50 [facility] Glucose 45(LL) 70 - 99 mg/dl 03/14/2023 16:50 [facility] Calcium 9.9 8.5 - 10.5 mg/dL 03/14/2023 16:50 [facility] BUN 11 10 - 26 mg/dL 03/14/2023 16:50 [facility] Creatinine 0.99 0.52 - 1.04 mg/dL 03/14/2023 16:50 EDT [facility] eGFR 75 >60 mL/min/1.73 m2 03/14/2023 16:50 EDT [facility] Blood VENOUS BLOOD / Unknown Venipuncture / Unknown 03/14/2023 15:19 EDT 03/14/2023 15:19 EDT Carrington Calderon MD CHEMISTRY & BLOOD GAS ORDERABLES [facility] [address] [place] [address] documented in this encounter Visit Diagnoses Diagnosis Type 2 diabetes mellitus with diabetic polyneuropathy, with long-term current use of insulin ([facility])- Primary documented in this encounter Care Teams Negative Cleaner Relationship Specialty Start Date End Date Carrington Calderon MD 1 [facility] 1 [place] [phone] PCP - General Internal Medicine - Primary Care 12/09/20 Abigail Díaz Wildlife Forensic Geneticist 04/21/23 01/03/24 Carmelo Hendrickson Coordinator 12/01/23 Abigail Díaz Wildlife Forensic Geneticist 01/04/24 documented as of this encounter
--- OUTSIDE RECORDS SUMMARY | 2024-02-06 13:32 | XMS_ITS | Encounter Summary ---
Author Organization [facility] Address [address] [place] [address] Care Team Providers Care Cash Management Coordinator Name Role Phone Carrington Calderon MD Primary Care Provi anders Reason for Visit * Reason Comments Medications Refill Encounter Details Date Type Department Care Team (Late st Contact Info) Description 02/26/2022 Refill [facility] Adult Primary Care [facility] 1 [place], [place] [phone] Tonja Alejandro PA-C [address] [place] [address] [place] [phone] Medications Refill Social History Tobacco Use Types Packs/Day Years Used Date Smoking Tobacco: Former Cigarettes 0.3 13.2 S tarted: 11/10/2010 Smokeless Tobacco: Never [...] in a senior care (including now)? No 01/13/2022 Interpersonal Safety Answer [...] Requested: METOCLOPRAMIDE HCI 10 MG Preferred Pharmacy: [facility] Is patient out of medication? [...] [facility] Adult Primary Care - [address] [phone] Carrington Calderon MD 1 [facility] 1 [place] [phone] 02/27/2024 8:30 EDT Telemedicine [facility] Sleep Program - [address] [phone] Dwight Colbert [address] [place] [address] [phone] 02/29/2024 10:[address] [facility] Radiology Nuclear Medicine and PET - [address] [phone] 02/29/2024 14:[address] [facility] Radiology Nuclear Medicine and PET [address] [phone] 03/01/2024 8:[address] [facility] Radiology Nuclear Medicine and PET [address] [address] 03/01/2024 9:[address] [facility] Radiology Nuclear Medicine and PET [address] [address] documented as of this encounter Visit Diagnoses Not on filedocumented in this encounter Discontinued Medications Medication Sig Discontinue Reason Start Date End Da te metoclopramide HCl (REGLAN) 10 mg tablet Take 1 Tablet by mouth 3 times daily before meals for 90 days. 11/20/2020 03/02/2022 documented as of this encounter Care Teams Cash Management Coordinator Relationship Specialty Start Date End Date Carrington Calderon MD 1 [facility] 1 [place] [address] PCP - General Internal Medicine - Primary Care 12/09/20 documented as of this encounter
--- OUTSIDE RECORDS SUMMARY | 2024-02-06 13:32 | XMS_ITS | Encounter Summary ---
Author Organization [facility] Address [address] [place] [address] Care Team Providers Care Roving Winder Name Role Phone Carrington Calderon MD Primary Care Provi anders Abigail Díaz Unavailable Carmelo Hendrickson Unavailable Unavailable Abigail Díaz Unavailable Encounter Details Date Type Department Care Team (Late st Contact Info) Description 10/27/2022 Lab Requisition [facility] Pathology & Laboratory Medicine - [address] [address] Dale Collier MD [address] [place] [address] [address] [place], [place] [phone] Nausea; Vomiting, unspecified Social History Tobacco Use [...] Visit [facility] Adult Primary Care - [address] [phone] Carrington Calderon MD [address] [phone] 02/27/2024 8:30 EDT Telemedicine [facility] Sleep Program - [address] [phone] Dwight Colbert [address] [place] [address] [phone] 02/29/2024 10:30 EDT Appointment [facility] Radiology Nuclear Medicine and PET [address] [phone] 02/29/2024 14:30 EDT Appointment [facility] Radiology Nuclear Medicine and PET - [address] [phone] 03/01/2024 8:00 EDT Appointment [facility] Radiology Nuclear Medicine and PET [address] [phone] 03/01/2024 9:30 EDT Appointment [facility] Radiology Nuclear Medicine and PET [address] [phone] documented as of this encounter Procedures Procedure [...] explore management options, if applicable. 11/02/2022 17:09 [facility] Final Diagnosis A. DUODENUM, BIOPSY: - Enteric mucosa with no significant diagnostic abnormality. B. STOMACH, ANTRUM, BIOPSY: - Antral-type mucosa with chemical (reactive) gastropathy. C. GASTROESOPHAGEAL JUNCTION, BIOPSY: - Active esophagitis with ulcer. - GMS stain is negative for fungal hyphae within squamous epithelium. - Negative for viral cytopathic effect. - No pill fragments identified. - See comment. 11/02/2022 17:09 [facility] Diagnosis Comment Low Vision Therapist slides of this case were reviewed at the gastrointestinal/[facility] intradepartmental consultation conference. (, KT, RW) 11/02/2022 17:09 [facility] Attestation By the signature below, the attending physician certifies that they have 1) personally conducted a gross and/or microscopic examination of the described specimen(s), and/or personally interpreted the results of laboratory testing of the described specimen(s), and 2) personally rendered or confirmed the above diagnosis. 11/02/2022 17:09 [facility] at 1709 Clinical History Nausea and vomiting, history of gastroparesis; duodenitis, esophagitis 11/02/2022 17:09 [facility] Gross Description A. Received in [...] EUNICE GEE(ASCP) 10/27/2022 18:08 11/02/2022 17:09 EDT [facility] Performing Lab [facility] 11/02/2022 17:09 EDT [facility] Scanned Images 11/02/2022 17:09 EDT [facility] Tissue ENTIRE ESOPHAGUS / Unknown 10/27/2022 11:15 EDT 10/27/2022 16:58 EDT Tissue specimen (specimen) STOMACH STRUCTURE / Unknown 10/27/2022 11:15 EDT 10/27/2022 16:58 EDT Tissue specimen (specimen) ESOPHAGEAL STRUCTURE / Unknown 10/27/2022 11:15 EDT 10/27/2022 16:58 EDT Dale Collier MD PATHOLOGY ORDERA DONALDO [facility] [address] [place] [address] documented in this encounter Visit Diagnoses Diagnosis Nausea Nausea alone Vomiting, unspecified documented in this encounter Care Teams Roving Winder Relationship Specialty Start Date End Date Carrington Calderon MD 1 [facility] 1 [place] [phone] PCP - General Internal Medicine - Primary Care 12/09/20 Abigail Díaz Prospect Manager 04/21/23 01/03/24 Carmelo Hendrickson Coordinator 12/01/23 Abigail Díaz Prospect Manager 01/04/24 documented as of this encounter
--- OUTSIDE RECORDS SUMMARY | 2024-02-06 13:32 | XMS_ITS | Encounter Summary ---
Author Organization [facility] Address [address] [place] [address] Care Team Providers Care Central Supply Manager Name Role Phone Carrington Calderon MD Primary Care Provi anders Abigail Díaz Unavailable [phone] Carmelo Hendrickson Unavailable Unavailable Abigail Díaz Unavailable [phone] Reason for Visit * Reason Onset Date Comments Appointment Related 03/30/2022 Encounter Details Date Type Department Care Team (Late st Contact Info) Description 03/30/2022 Telephone [facility] Endocrinology - [address] [address] Lizette Veloz RPH Appointment Related [...] slept in a custodial (including now)? No 01/13/2022 Interpersonal Safety Answer [...] 1317 EDT ----- Message from Lizette Veloz [facility] sent at 03/16/2022 14:47 EDT ----- [...] [facility] Adult Primary Care - [address] [address] Carrington Calderon MD [address] [phone] 02/27/2024 8:30 EDT Telemedicine [facility] Sleep Program - [address] [address] Dwight Colbert [address] [place] [address] [phone] 02/29/2024 10:30 EDT Appointment [facility] Radiology Nuclear Medicine and PET [address] [phone] 02/29/2024 14:30 EDT Appointment [facility] Radiology Nuclear Medicine and PET [address] [address] 03/01/2024 8:00 EDT Appointment [facility] Radiology Nuclear Medicine and PET [address] [phone] 03/01/2024 9:30 EDT Appointment [facility] Radiology Nuclear Medicine and [address] [phone] documented as of this encounter Visit Diagnoses Not on filedocumented in this encounter Care Teams Central Supply Manager Relationship Specialty Start Date End Date Carrington Calderon MD [address] [place] [phone] PCP - General Internal Medicine - Primary Care 12/09/20 Abigail Díaz Product Marketer 04/21/23 01/03/24 Carmelo Hendrickson Coordinator 12/01/23 Abigail Díaz Product Marketer 01/04/24 documented as of this encounter
--- OUTSIDE RECORDS SUMMARY | 2024-02-06 13:32 | XMS_ITS | Encounter Summary ---
Author Organization [facility] Address [address] [place] [address] Care Team Providers Care Head Gauge Unit Operator Name Role Phone Carrington Calderon MD Primary Care Provi anders Reason for Referral * PT/OT/ST (Routine/Next Available) - Closed Specialty Diagnoses / Procedures Referred By Kit goode Referred To Contact Rehab Therapies Diagnoses Bilateral chronic knee pain Chronic low back pain, unspecified back pain laterality, unspecified whether sciatica present Carrington Calderon MD [address] [phone] Referral ID Status Reason Start Date Expiration Date V isits Requested Visits Authorized [id number] Closed Specialty Services Required 11/17/2022 1 1 Question Answer Reason for Request: bilateral knee and low back pain Practice Site (External Referral Only): [facility] [place] Reason for Visit * Reason Comments Annual Exam Encounter Details Date Type Department Care Team (Late st Contact Info) Description 11/17/2022 10:30 EDT Office Visit [facility] Adult Primary Care - [address] [address] Carrington Calderon MD [address] [phone] Visit for preventive health examination [...] polyneuropathy, with long-term current use of insulin ([facility]) Inject 40 Units into the [...] with type 2 diabetes mellitus ([facility]) Take 1 Capsule by mouth every morning AND 3 Capsules at bedtime. 360 Capsule 4 11/17/2022 06/27/2023 SITagliptin phosphate (JANUVIA) 100 mg tabletIndications:Type 2 diabetes mellitus with diabetic polyneuropathy, with long-term current use of insulin ([facility]) Take 1 Tablet by mouth [...] of insulin ([facility]) ([facility]): Empagliflozin was stopped recently in the setting [...] HEMOGLOBIN A1C - THYROID CASCADE - URINE [id number] RATIO (ACR) Gastroparesis: Refilled omeprazole and ondansetron. - omeprazole (PRILOSEC) 20 mg capsule - ondansetron (ZOFRAN-ODT) 4 mg disintegrating tablet Diabetic polyneuropathy associated with type 2 diabetes mellitus ([facility]) ([facility]): Continue gabapentin. She is comfortable with this [...] minutes today in chart review, care coordination, [id number] time with the patient independent of preventive [...] Description 02/21/2024 9:45 EDT Office Visit [facility] Adult Primary Care - [address] [phone] Carrington Calderon MD [address] [phone] 02/27/2024 8:30 EDT Telemedicine [facility] Sleep Program - [address] [phone] Dwight Colbert [address] [place] [phone] 02/29/2024 10:30 EDT Appointment [facility] Radiology Nuclear Medicine and PET [address] [phone] 02/29/2024 14:30 EDT Appointment [facility] Radiology Nuclear Medicine and PET - [address] [phone] 03/01/2024 8:00 EDT Appointment [facility] Radiology Nuclear Medicine and PET [address] [phone] 03/01/2024 9:30 EDT Appointment [facility] Radiology Nuclear Medicine and PET [address] [phone] Scheduled Referrals Name Type Priority Associated Diagnoses [...] polyneuropathy, with long-term current use of insulin ([facility]) Gastroparesis Diabetic polyneuropathy associated with type 2 diabetes mellitus ([facility]) Chronic low back pain, unspecified back pain [...] polyneuropathy, with long-term current use of insulin ([facility]) Inject 40 Units into the [...] 11/17/2022 documented in this encounter Care Teams Head Gauge Unit Operator Relationship Specialty Start Date End Date Carrington Calderon MD 1 [facility] Level 1 [place] [phone] PCP - General Internal Medicine - Primary Care 12/09/20 documented as of this encounter
--- OUTSIDE RECORDS SUMMARY | 2024-02-06 13:32 | XMS_ITS | Encounter Summary ---
Author Organization [facility] Address [address] [place] [address] Care Team Providers Care Administrative Medical Director Name Role Phone Carrington Calderon MD Primary Care Provi anders Abigail Díaz Unavailable [phone] Carmelo Hendrickson Unavailable Unavailable Abigail Díaz Unavailable [phone] Reason for Visit * Reason Onset Date Comments Prior Auth, Medication 11/18/2022 Encounter Details Date Type Department Care Team (Late st Contact Info) Description 11/18/2022 Telephone [facility] Adult Primary Care - [address] [phone] Carrington Calderon MD 1 [facility] [address] [place] [phone] Prior Auth, Medication Social History Tobacco Use [...] with long-term current use of insulin ([facility]) Inject 8-14 Units into the [...] 100 unit/mL (3 mL) injectable pen Mejia: [id number] documented in this encounter Plan of Treatment Upcoming Encounters Date Type Department Care Team (Late st Contact Info) Description 02/21/2024 9:45 EDT Office Visit [facility] Adult Primary Care - [address] [phone] Carrington Calderon MD [address] [facility] 1 [place] [address] 02/27/2024 8:30 EDT Telemedicine [facility] Sleep Program - [address] [phone] Dwight Colbert [address] [place] [address] [phone] 02/29/2024 10:30 EDT Appointment [facility] Radiology Nuclear Medicine and PET [address] [phone] 02/29/2024 14:30 EDT Appointment [facility] Radiology Nuclear Medicine and PET [address] [phone] 03/01/2024 8:00 EDT Appointment [facility] Radiology Nuclear Medicine and [address] [phone] 03/01/2024 9:30 EDT Appointment [facility] Radiology Nuclear Medicine and [address] [phone] documented as of this encounter Visit Diagnoses Diagnosis Type 2 diabetes mellitus with diabetic polyneuropathy, with long-term current use of insulin ([facility])- Primary documented in this [...] documented as of this encounter Care Teams Administrative Medical Director Relationship Specialty Start Date End Date Carrington Calderon MD [address] [facility] 1 [place] [phone] PCP - General Internal Medicine - Primary Care 12/09/20 Abigail Díaz Heel Molder 04/21/23 01/03/24 Carmelo Hendrickson Coordinator 12/01/23 Abigail Díaz Heel Molder 01/04/24 documented as of this encounter
--- OUTSIDE RECORDS SUMMARY | 2024-02-06 13:32 | XMS_ITS | Encounter Summary ---
Author Organization [facility] Address [address] [place] [address] Care Team Providers Care Community Product Specialist Name Role Phone Carrington Calderon MD Primary Care Provi anders Reason for Visit * Reason Comments Emesis Reports multiple day s of vomiting. Hx gastroenteritis with similar presentations. Endorses dizziness. Lost consciousness in triage. VSS. Reports pain everywhere. Encounter Details Date Type Department Care Team (Late st Contact Info) Description 12/13/2022 17:42 EDT - 12/13/2022 21:[address] [facility] Emergency Department - [address] [id number] Brijesh Esposito MD 111 [facility], Level 1 [place] [address] Non-intractable vomiting with nausea (Primary [...] 08/20/2020 lidocaine 5 % (LIDODERM) 5 % patchIndications:Mortgage Specialist gordo midline low back pain without sciatica Place 1 Patch onto the skin daily. Patch(es) may remain in place for up to 12 hours in any 24-hour period. 30 Patch 2 09/02/2022 blood glucose meterIndications:Type 2 diabetes mellitus with diabetic polyneuropathy, with long-term current use of insulin ([facility]) One Touch Verio Flex meter. 1 Each [...] polyneuropathy associated with type 2 diabetes mellitus ([facility]) Take 1 Capsule by mouth every morning AND 3 Capsules at bedtime. 360 Capsule 4 11/17/2022 06/27/2023 insulin glargine (LANTUS SOLOSTAR/SEMGLEE) 100 unit/mL (3 mL) injection penIndications:Type 2 diabetes mellitus with diabetic polyneuropathy, with long-term current use of insulin ([facility]) Inject 40 Units into the skin at bedtime. 36 mL 4 11/17/2022 06/27/2023 insulin lispro (HUMALOG KWIKPEN INSULIN) 100 unit/mL injectable penIndications:Type 2 diabetes mellitus with diabetic polyneuropathy, with long-term current use of insulin ([facility]) Inject 8-14 Units into the skin 3 times daily with meals. 15 mL 3 11/18/2022 04/04/2023 insulin pen needles 31G x 5/16Indications:Type 2 diabetes mellitus with hyperglycemia, with long-term current use of insulin ([facility]) Use 1 pen needle as [...] with long-term current use of insulin ([facility]) Take 1 Tablet by [...] Comment s Home or Self Senior Care documented in this encounter ED Notes [...] [facility] - [address] [phone] Carrington Calderon MD 1 [facility] 1 [place] [phone] 02/27/2024 8:[address] [facility] Sleep Program - [address] [address] Dwight Colbert [address] [place] [address] 02/29/2024 10:30 EDT Appointment [facility] Radiology Nuclear Medicine and PET - [address] [address] 02/29/2024 14:30 EDT [facility]ointment [facility] Radiology Nuclear Medicine and PET - [address] [address] 03/01/2024 8:00 EDT Appointment [facility] Radiology Nuclear Medicine and PET [address] [phone] 03/01/2024 9:30 EDT Appointment [facility] Radiology Nuclear Medicine and PET [address] [address] documented as of this encounter Procedures Procedure [...] 6:15 EDT) 12/20/2022 6:15 EDT Scan 2 Account [facility] PROCEDURE/MINOR BRAULIO GICAL ORDERABLES * ECG REPORT - SCANNED (12/20/2022 6:15 EDT) 12/20/2022 6:15 EDT Scan 2 Account [facility] PROCEDURE/MINOR BRAULIO GICAL ORDERABLES * POCT TEST, CLINITEK (12/13/2022 20:26 EDT) UPT Result Negative Negative 12/13/2022 20:32 EDT [facility] HN LAB COMMENT (CLINITEK, UPT) Test performed at Emergency Department 12/13/2022 20:32 EDT [facility] Comment:False negative resul ts may occur in women who are beyond 5-8 weeks gestation. Diagnosis of should be based on a correlation of test results with typical clinical signs and symptoms. Urine URINE SPECIMEN COLLECTION, CLEAN CATCH / Unknown 12/13/2022 20:26 EDT 12/13/2022 20:32 EDT Fran Bush MD POINT OF CARE TEST O RDERABLES [facility] [address] [place] [address] * (ABNORMAL) POCT URINE DIPSTICK, CLINITEK (12/13/2022 20:24 EDT) Color, UA Yellow Yellow 12/13/2022 20:26 [facility] Clarity, UA Clear Clear 12/13/2022 20:26 [facility] Glucose, UA Negative Negative mg/dL 12/13/2022 20:26 [facility] Bilirubin, UA Negative Negative 12/13/2022 20:26 [facility] Ketones, UA 3+(AA) Negative 12/13/2022 20:26 [facility] Specific Mccurtain, Urine 1.020 1.001 - 1.035 12/13/2022 20:26 [facility] Blood, UA 3+(A) Negative 12/13/2022 20:26 [facility] pH, UA 7.0 4.6 - 8.0 12/13/2022 20:26 [facility] Protein, UA 1+(A) Negative 12/13/2022 20:26 [facility] Urobilinogen, UA 0.2 0.2 - 1.0 mg/dL 12/13/2022 20:26 [facility] Nitrite, UA Negative Negative 12/13/2022 20:26 [facility] Leuk Esterase Trace(A) Negative 12/13/2022 20:26 [facility] HN LAB COMMENT (CLINITEK, UR) Test performed at Emergency Department 12/13/2022 20:26 [facility] Urine URINE SPECIMEN COLLECTION, CLEAN CATCH / Unknown 12/13/2022 20:24 EDT 12/13/2022 20:26 EDT Fran Bush MD POINT OF CARE TEST O RDERABLES [facility] [address] [place] [address] * POCT CSN BARCODE URINE DIPSTICK (12/13/2022 20:20 EDT) Urine URINE SPECIMEN COLLECTION, CLEAN CATCH / Unknown Urine Collect / Unknown 12/13/2022 20:20 EDT 12/13/2022 20:20 EDT Fran Bush MD LAB INFO SERVICE AND SUPPORT & PHONE RESULT Performing Organization Address [facility] Co de Phone Number [facility] [address] [place] [address] * POCT CSN BARCODE URINE PREG TEST (12/13/2022 20:20 EDT) Urine URINE SPECIMEN COLLECTION, CLEAN CATCH / Unknown Urine Collect / Unknown 12/13/2022 20:20 EDT 12/13/2022 20:20 EDT Fran Bush MD LAB INFO SERVICE AND SUPPORT & PHONE RESULT Performing Organization Address [facility] Co de Phone Number [facility] [address] [place] [address] * EKG 12-LEAD (12/13/2022 18:09 EDT) 12/13/2022 18:0 9 EDT Narrative [facility] EKG - 12/17/2022 9:43 EDT ?[facility] Emergency ? Test Date: ?2022-12-13 Pat Name: ? CRISTY LUO ?Department: ?? ED ? Room: ? AC17 Gender: ? Female ? Ophthalmic Dispenser: ?? [id number] : ?1985 ? Requested By: CATE Zhao Number: [id number] ? Sammie MARTÍNEZ: ?? CINDY SNYDER MD ? Measurements Intervals ?[place] ? Rate: ? 85 ? P: ?57 [place]: ? 144 ?QRS: ?5 QRSD: ? 97 [...] Cindy Snyder Jr., MD - 12/17/2022 [facility] Emergency Test Date: 2022-12-13 Pat Name: CRISTY LUO Department: ED Room: [facility] Gender: Female Ophthalmic Dispenser: [id number] : 1985 Requested By: CATE COLEY Order Number: [id number] Reading MD: CINDY SNYDER MD Measurements Intervals [place] Rate: 85 P: 57 [place]: 144 QRS: 5 QRSD: 97 T: -1 QT: 363 QTc: 432 Interpretive Statements SINUS RHYTHM WITH SINUS ARRHYTHMIA Compared to ECG 05/20/2022 14:39:55 Sinus tachycardia no longer present T-wave abnormality no longer present I reviewed the tracing and have either agreed or edited the findings inthis report. Electronically Signed On 12-17-2022 9:43:44 EDT by CINDY SANDOVAL. Brijesh Esposito MD CARDIAC ECG ORDERABL ES [facility] EKG * (ABNORMAL) COMPLETE BLOOD COUNT AND DIFFERENTIAL (12/13/2022 18:04 EDT) WBC 17.27(H) 4.00 - 12.40 K/cmm 12/13/2022 18:17 [facility] RBC 4.72 3.86 - 5.04 M/cmm 12/13/2022 18:17 [facility] Hemoglobin 14.9 11.6 - 15.2 g/dL 12/13/2022 18:17 [facility] HCT 41.3 34.9 - 44.4 % 12/13/2022 18:17 [facility] MCV 88 81 - 98 fL 12/13/2022 18:17 [facility] MCH 31.6 26.7 - 33.3 pg 12/13/2022 18:17 [facility] MCHC 36.1(H) 32.1 - 35.9 g/dL 12/13/2022 18:17 [facility] RDW-CV 13.0 <14.7 % 12/13/2022 18:17 [facility] RDW-SD 41.4 <50.4 fl 12/13/2022 18:17 [facility] PLT 434(H) 141 - 377 K/cmm 12/13/2022 18:17 [facility] MPV 9.3(L) 9.5 - 12.7 fL 12/13/2022 18:17 [facility] % Neutrophils 65.9 % 12/13/2022 18:17 [facility] % Lymphocytes 25.1 % 12/13/2022 18:17 [facility] % Monocytes 8.2 % 12/13/2022 18:17 [facility] % Eosinophils 0.3 % 12/13/2022 18:17 [facility] % Basophils 0.3 % 12/13/2022 18:17 [facility] % Immature Grans 0.2 % 12/14/19 18:17 [facility] Absolute Neutrophils 11.39(H) 2.20 - 8.85 K/cmm 12/13/2022 18:17 [facility] Absolute Lymphocytes 4.33(H) 1.09 - 3.30 K/cmm 12/13/2022 18:17 [facility] Absolute Monocytes 1.41(H) 0.10 - 0.80 K/cmm 12/13/2022 18:17 [facility] Absolute Eosinophils 0.05 0.03 - 0.61 K/cmm 12/13/2022 18:17 [facility] ABS Basophils 0.05 0.01 - 0.11 K/cmm 12/13/2022 18:17 [facility] Absolute Immature Grans 0.04 0.00 - 0.06 K/cmm 12/13/2022 18:17 [facility] Type of Differential: Auto 12/13/2022 18:17 [facility] Blood VENOUS BLOOD / Unknown Venipuncture / Unknown 12/13/2022 18:04 EDT 12/13/2022 18:08 EDT Fran Bush MD PACKAGES & DNA PROBE ORDERABLES [facility] [address] [place] [address] * (ABNORMAL) COMPREHENSIVE METABOLIC PANEL (CMP) (12/13/2022 18:04 ED) Sodium 138 136 - 145 mmol/L 12/13/2022 18:27 [facility] Potassium 3.1(L) 3.5 - 5.0 mmol/L 12/13/2022 18:27 [facility] Chloride 94(L) 96 - 110 mmol/L 12/13/2022 18:27 [facility] CO2 Total 28 22 - 32 mmol/L 12/13/2022 18:27 [facility] Glucose 220(H) 70 - 99 mg/dl 12/13/2022 18:27 [facility] BUN 17 10 - 26 mg/dL 12/13/2022 18:27 [facility] Creatinine 0.43(L) 0.52 - 1.04 mg/dL 12/13/2022 18:27 [facility] eGFR 128 >60 mL/min/1.7 3m2 12/13/2022 18:27 [facility] Total Protein 7.4 6.3 - 8.2 g/dL 12/13/2022 18:27 [facility] Albumin 4.3 3.4 - 4.9 g/dL 12/13/2022 18:27 [facility] Alkaline Phosphatase 92 38 - 126 U/L 12/13/2022 18:27 [facility] AST 27 15 - 46 U/L 12/13/2022 18:27 [facility] ALT 31 <35 U/L 12/13/2022 18:27 [facility] Bilirubin, Total 0.6 <1.4 mg/dL 12/14/19 18:27 [facility] Calcium 9.8 8.5 - 10.5 mg/dL 12/13/2022 18:27 [facility] Albumin/Globulin Ratio 1.4 1.0 - 2.5 g/dL 12/13/2022 18:27 [facility] Anion Gap 16(H) 5 - 14 mmol/L 12/13/2022 18:27 EDT [facility] Blood VENOUS BLOOD / Unknown Venipuncture / Unknown 12/13/2022 18:04 EDT 12/13/2022 18:08 EDT Fran Bush MD CHEMISTRY & BLOOD GA S ORDERABLES Performing Organization Address City/[facility]/ZIP Co de Phone Number [facility] [address] [place] [address] * (ABNORMAL) POCT GLUCOSE, INTERFACED (12/13/2022 18:01 EDT) Glucose, POC 223(H) 70 - 100 mg/dL 12/13/2022 18:03 EDT [facility] HN LAB POC COMMENT (GLUCOSE) Test Performed by Nursing Services 12/13/2022 18:03 EDT [facility] Blood CAPILLARY BLOOD / Unknown 12/13/2022 18:01 EDT 12/13/2022 18:03 EDT Provider Unknown POINT OF CARE TEST O RDERABLES Performing Organization Address City/[facility]/ZIP Co de Phone Number [facility] [address] [place] [address] documented in this encounter Visit Diagnoses Diagnosis [...] 12/13/2022 documented in this encounter Care Teams Community Product Specialist Relationship Specialty Start Date End Date Carrington Calderon MD 1 [facility] Level 1 [place] [address] PCP - General Internal Medicine - Primary Care 12/09/20 documented as of this encounter
--- OUTSIDE RECORDS SUMMARY | 2024-02-06 13:32 | XMS_ITS | Encounter Summary ---
Author Organization [facility] Address [address] [place] [address] Care Team Providers Care Farm Laborer Name Role Phone Carrington Calderon MD Primary Care Provi anders Abigail Díaz Unavailable Carmelo Hendrickson Unavailable Unavailable Abigail Díaz Unavailable Reason for Visit * Reason Onset Date Comments Appointment Related 02/05/2022 LVM in regar ds to zomm appt. Adivised to call back for any questions or concerns. x2 Encounter Details Date Type Department Care Team (Late st Contact Info) Description 02/05/2022 Telephone [facility] Gastroenterology - [address] [address] Scott Arzate MD [address] [place] [address], Level [address] [place] [address] Appointment Related (LVM in regards [...] [facility] [address] [address] Carrington Calderon MD [address] [phone] 02/27/2024 8:30 EDT Telemedicine [facility] Sleep Program - [address] [address] Dwight Colbert [address] [place] [phone] 02/29/2024 10:30 EDT Appointment [facility] Radiology Nuclear Medicine and PET - [address] [address] 02/29/2024 14:30 EDT Appointment [facility] Radiology Nuclear Medicine and PET - [address] [address]991 03/01/2024 8:00 EDT Appointment [facility] Radiology Nuclear Medicine and PET - [address] [address] 03/01/2024 9:30 EDT Appointment [facility] Radiology Nuclear Medicine and PET - [address] [phone] documented as of this encounter Visit Diagnoses Not on filedocumented in this encounter Care Teams Farm Laborer Relationship Specialty Start Date End Date Carrington Calderon MD 1 [facility] Level 1 [place] [phone] PCP - General Internal Medicine - Primary Care 12/09/20 Abigail Díaz Lead Electrician 04/21/23 01/03/24 Carmelo Hendrickson Coordinator 12/01/23 Abigail Díaz Lead Electrician 01/04/24 documented as of this encounter
--- OUTSIDE RECORDS SUMMARY | 2024-02-06 13:32 | XMS_ITS | Encounter Summary ---
Author Organization [facility] Address [address] [place] [address] Care Team Providers Care Holistic Pulser Name Role Phone Carrington Calderon MD Primary Care Provi anders Reason for Visit * Reason Onset Date Comments COVID-19 Positive Patient Outreach 02/25/2022 Encounter Details Date Type Department Care Team (Late st Contact Info) Description 02/25/2022 Telephone [facility] Adult Primary Care [address] [phone] Carrington Calderon MD [address] [phone] COVID-19 Positive Patient Outreach Social [...] wash your hands often. Rx pended with [facility] pharmacy loaded. Patient lives in [place] but says that her [id number] will be in [place] this afternoon and will be able to [...] [facility] - [address] [phone] Carrington Calderon MD [address] [address] 02/27/2024 8:30 EDT Telemedicine [facility] Sleep Program - [address] [address] Dwight Colbert [address] [place] [phone] 02/29/2024 10:30 EDT Appointment [facility] Radiology Nuclear Medicine and PET - [address] [phone] 02/29/2024 14:30 EDT [facility] Radiology Nuclear Medicine and PET - [address] 607421 03/01/2024 8:00 EDT Appointment [facility] Radiology Nuclear Medicine and PET - [address] [address] 03/01/2024 9:30 EDT [facility]ointment [facility] Radiology Nuclear Medicine and PET - [address] [address] documented as of this encounter Visit Diagnoses Diagnosis COVID-19 virus infection- Primary documented in this encounter Care Teams Holistic Pulser Relationship Specialty Start Date End Date Carrington Calderon MD 1 [facility] 1 [place] [phone] PCP - General Internal Medicine - Primary Care 12/09/20 documented as of this encounter
--- OUTSIDE RECORDS SUMMARY | 2024-02-06 13:32 | XMS_ITS | Encounter Summary ---
Author Organization [facility] Address [address] [place] [address] Care Team Providers Care Inspector And Mender Name Role Phone Carrington Calderon MD Primary Care Provi anders Reason for Visit * Reason Comments Med Change Request Encounter Details Date Type Department Care Team (Late st Contact Info) Description 12/20/2022 Refill [facility] Adult Primary Care [facility] 1 [place], [place] [address] Carrington Calderon MD 1 [facility] Level 1 [place] [address] Med Change Request Social History [...] 1215 EDT prochlorperazine (COMPAZINE) 25 mg suppository [[id number]] ?? Order Details Dose: 25 mg Route: [...] [facility] - [address] [phone] Carrington Calderon MD 1 [facility] 1 [place] [address] 02/27/2024 8:30 EDT Telemedicine [facility] Sleep Program - [address] [phone] Dwight Colbert [address] [place] [phone] 02/29/2024 10:[address] [facility] Radiology Nuclear Medicine and PET - [address] [phone] 02/29/2024 14:[address] [facility] Radiology Nuclear Medicine and PET - [address] [address] 03/01/2024 8:[address] [facility] Radiology Nuclear Medicine and PET - [address] [address] 03/01/2024 9:[address] [facility] Radiology Nuclear Medicine and PET - [address] [phone] documented as of this encounter Visit Diagnoses Diagnosis Cyclic vomiting syndrome- Primary Persistent vomiting documented in this encounter Care Teams Inspector And Mender Relationship Specialty Start Date End Date Carrington Calderon MD 1 [facility] 1 [place] [address] PCP - General Internal Medicine - Primary Care 12/09/20 documented as of this encounter
--- OUTSIDE RECORDS SUMMARY | 2024-02-06 13:32 | XMS_ITS | Encounter Summary ---
Author Organization [facility] Address [address] [place] [address] Care Team Providers Care Investigation Manager Name Role Phone Carrington Calderon MD Primary Care Provi anders Reason for Visit * Reason Onset Date Comments Medications Refill 02/01/2023 Encounter Details Date Type Department Care Team (Late st Contact Info) Description 02/01/2023 Refill [facility] Adult Primary Care [address] [phone] Carrington Calderon MD 1 [facility] Level 1 [place] [address] Medications Refill Social History Tobacco [...] [facility] Adult Primary Care - [address] [phone] Carrington Calderon MD [address] [phone] 02/27/2024 8:30 EDT Telemedicine [facility] Sleep Program - [address] [phone] Dwight Colbert [address] [place] [phone] 02/29/2024 10:30 EDT [facility] Radiology Nuclear Medicine and PET - [address] [address] 02/29/2024 14:30 EDT Appointment [facility] Radiology Nuclear Medicine and PET - [address] [address] 03/01/2024 8:00 EDT Appointment [facility] Radiology Nuclear Medicine and PET - [address] [address] 03/01/2024 9:30 EDT Appointment [facility] Radiology Nuclear Medicine and PET [address] [address] documented as of this encounter Visit Diagnoses [...] documented as of this encounter Care Teams Investigation Manager Relationship Specialty Start Date End Date Carrington Calderon MD 1 [facility] 1 [place] [address] PCP - General Internal Medicine - Primary Care 12/09/20 documented as of this encounter
--- OUTSIDE RECORDS SUMMARY | 2024-02-06 13:32 | XMS_ITS | Encounter Summary ---
Author Organization [facility] Address [address] [place] [address] Care Team Providers Care Box Sealing Inspector Name Role Phone Carrington Calderon MD Primary Care Provi anders Encounter Details Date Type Department Care Team (Late st Contact Info) Description 03/14/2023 15:15 EDT Phlebotomy Only [facility] Services - [address] [address] [facility] Type 2 diabetes mellitus with diabetic polyneuropathy, with long-term current use of insulin ([facility]); Night sweats; Lymphocytosis Social History Tobacco [...] Visit [facility] Adult Primary Care - [address] [phone] Carrington Calderon MD [address] [phone] 02/27/2024 8:30 EDT Telemedicine [facility] Sleep Program - [address] 599651 Dwight Colbert [address] [place] [address] [phone] 02/29/2024 10:30 EDT Appointment [facility] Radiology Nuclear Medicine and PET [address] [phone] 02/29/2024 14:30 EDT Appointment [facility] Radiology Nuclear Medicine and PET [address] [phone] 03/01/2024 8:00 EDT Appointment [facility] Radiology Nuclear Medicine and PET [address] [id number] 03/01/2024 9:30 EDT Appointment [facility] Radiology Nuclear Medicine and PET [address] [phone] documented as of this encounter Procedures Procedure Name Priority Date/Time Associated Diagnosis Comments PATH REVIEW - HEMATOLOGY Routine 03/14/2023 15:19 EDT Night sweats Lymphocytosis DIFFERENTIAL, AUTOMATED MANUAL Today 03/14/2023 15:19 EDT Type 2 diabetes mellitus with diabetic polyneuropathy, with long-term current use of insulin ([facility]) SLIDE REQUEST Routine 03/14/2023 15:19 EDT Night sweats Lymphocytosis COMPLETE BLOOD COUNT AND DIFFERENTIAL Routine 03/14/2023 15:19 EDT Type 2 diabetes mellitus with diabetic polyneuropathy, with long-term current use of insulin ([facility]) HEMOGLOBIN A1C Routine 03/14/2023 15:19 EDT Type 2 diabetes mellitus with diabetic polyneuropathy, with long-term current use of insulin ([facility]) BASIC METABOLIC PANEL (BMP) Routine 03/14/2023 15:19 EDT Type 2 diabetes mellitus with diabetic polyneuropathy, with long-term current use of insulin ([facility]) documented in this encounter Results * [...] and giant forms noted. 03/16/2023 12:25 EDT [facility] Blood VENOUS BLOOD / Unknown Venipuncture / Unknown 03/14/2023 15:19 EDT 03/16/2023 11:05 EDT Narrative [facility] - 03/16/2023 12:25 [...] Carrington Calderon MD HEMATOLOGY & PF4 ORDERABLES [facility] [address] [place] [address] * (ABNORMAL) DIFFERENTIAL, AUTOMATED MANUAL (03/14/2023 15:19 EDT) % Neutrophils 48.7 % 03/14/2023 17:23 [facility] % Lymphocytes 44.3 % 03/14/2023 17:23 [facility] % Monocytes 4.4 % 03/14/2023 17:23 [facility] % Eosinophils 1.7 % 03/14/2023 17:23 [facility] % Basophils 0.9 % 03/14/2023 17:23 [facility] Absolute Neutrophils 8.80 2.20 - 8.85 K/cmm 03/14/2023 17:23 [facility] Absolute Lymphocytes 8.01(H) 1.09 - 3.30 K/cmm 03/14/2023 17:23 [facility] Absolute Monocytes 0.80 0.10 - 0.80 K/cmm 03/14/2023 17:23 [facility] Absolute Eosinophils 0.31 0.03 - 0.61 K/cmm 03/14/2023 17:23 [facility] ABS Basophils 0.16(H) 0.01 - 0.11 K/cmm 03/14/2023 17:23 [facility] Smudge Cells 03/14/2023 17:23 [facility] Comment:present Type of Differential: Manual 03/14/2023 17:23 [facility] Blood VENOUS BLOOD / Unknown Venipuncture / Unknown 03/14/2023 15:19 EDT 03/14/2023 15:19 EDT Carrington Calderon MD HEMATOLOGY & PF4 ORDERABLES Performing Organization Address City/[facility]/ZIP Co de Phone Number [facility] [address] [place] [address] * (ABNORMAL) COMPLETE BLOOD COUNT AND DIFFERENTIAL (03/14/2023 15:19 EDT) WBC 18.08(H) 4.00 - 12.40 K/cmm 03/14/2023 16:23 EDT [facility] RBC 4.40 3.86 - 5.04 M/cmm 03/14/2023 16:23 EDT [facility] Hemoglobin 14.0 11.6 - 15.2 g/dL 03/14/2023 16:23 T [facility] HCT 40.6 34.9 - 44.4 % 03/14/2023 16:23 [facility] MCV 92 81 - 98 fL 03/14/2023 16:23 T [facility] MCH 31.8 26.7 - 33.3 pg 03/14/2023 16:23 [facility] MCHC 34.5 32.1 - 35.9 g/dL 03/14/2023 16:23 [facility] RDW-CV 12.6 <14.7 % 03/14/2023 16:23 [facility] RDW-SD 42.6 <50.4 fl 03/14/2023 16:23 [facility] PLT 412(H) 141 - 377 K/cmm 03/14/2023 16:23 [facility] MPV 9.3(L) 9.5 - 12.7 fL 03/14/2023 16:23 [facility] Blood VENOUS BLOOD / Unknown Venipuncture / Unknown 03/14/2023 15:19 EDT 03/14/2023 15:19 EDT Carrington Calderon MD PACKAGES & DNA PROBE ORDERABLES [facility] [address] [place] [address] * (ABNORMAL) HEMOGLOBIN A1C (03/14/2023 15:19 EDT) Hemoglobin A1c 8.3(H) <5.7 % 03/14/2023 22:02 EDT [facility] Comment: Glycemic Status References: Normal: ??<5.7% Pre-Diabetes: ??5.7% - 6.4% Diagnostic of Diabetes: ??> or = 6.5% (if confirmed) Est Avg Glucose 192 mg/dL 22:02 EDT [facility] Comment:The eAG represents t he A1c result expressed as average glucose in mg/dL. Blood VENOUS BLOOD / Unknown Venipuncture / Unknown 03/14/2023 15:19 EDT 03/14/2023 15:19 EDT Carrington Calderon MD CHEMISTRY & BLOOD GAS ORDERABLES [facility] [address] [place] [address] * (ABNORMAL) BASIC METABOLIC PANEL (BMP) (03/14/2023 15:19 EDT) Pathologist [facility] Sodium 142 136 - 145 mmol/L 03/14/2023 16:50 EDT [facility] Potassium 4.2 3.5 - 5.0 mmol/L 03/14/2023 16:50 T [facility] Chloride 103 96 - 110 mmol/L 03/14/2023 16:50 T [facility] CO2 Total 25 22 - 32 mmol/L 03/14/2023 16:50 EDT [facility] Anion Gap 14 5 - 14 mmol/L 03/14/2023 16:50 EDT [facility] Glucose 45(LL) 70 - 99 mg/dl 03/14/2023 16:50 EDT [facility] Calcium 9.9 8.5 - 10.5 mg/dL 03/14/2023 16:50 EDT [facility] BUN 11 10 - 26 mg/dL 03/14/2023 16:50 EDT [facility] Creatinine 0.99 0.52 - 1.04 mg/dL 03/14/2023 16:50 EDT [facility] eGFR 75 >60 mL/min/1.73 m2 03/14/2023 16:50 EDT [facility] Blood VENOUS BLOOD / Unknown Venipuncture / Unknown 03/14/2023 15:19 EDT 03/14/2023 15:19 EDT Carrington Calderon MD CHEMISTRY & BLOOD GAS ORDERABLES [facility] [address] [place] [address] documented in this encounter Visit Diagnoses Diagnosis Type 2 diabetes mellitus with diabetic polyneuropathy, with long-term current use of insulin ([facility]) Night sweats Generalized hyperhidrosis Lymphocytosis Lymphocytosis (symptomatic) documented in this encounter Care Teams Box Sealing Inspector Relationship Specialty Start Date End Date Carrington Calderon MD 1 [facility] Level [address] [place] [phone] PCP - General Internal Medicine - Primary Care 12/09/20 documented as of this encounter
--- OUTSIDE RECORDS SUMMARY | 2024-02-06 13:32 | XMS_ITS | Encounter Summary ---
Author Organization [facility] Address [address] [place] [address] Care Team Providers Care Director Of Music Name Role Phone Carrington Calderon MD Primary Care Provi anders Reason for Referral * Medication Prior Authorization - Authorized Specialty Diagnoses / Procedures Referred By Kit goode Referred To Contact Diagnoses Chronic midline low back pain without sciatica Nimisha Clifton NP [address] [phone] Referral ID Status Reason Start Date Expiration Date V isits Requested Visits Authorized [id number] Authorized 08/05/2022 09/04/2023 1 1 Reason for Visit * Reason Comments Pre-op Exam Toe amputation Encounter Details Date Type Department Care Team (Late st Contact Info) Description 09/02/2022 11:15 EDT Office Visit [facility] Adult Primary Care - [address] [address] Nimisha Clifton NP [address] [phone] Osteomyelitis of left foot, unspecified [...] who presents today for preop. Surgery in [facility]. Hospitalized last week for infection [...] shares that she follows with endocrine in [facility], next visit in September. Believes her [...] with long-term current use of insulin ([facility] ([facility]) ??? Gastroparesis ??? Neuropathic diabetic ulcer of foot ([facility]) ??? Tobacco use ??? Skin infection ??? [...] a referral for therapy. ??? Diabetes ([facility]) ([facility]) A1c 10.3 on 11/28/2019 - poorly controlled ??? Diabetes mellitus, type 2 ([facility]) ([facility]) pt check blood sugars at home- [...] ??? Neuropathic diabetic ulcer of foot ([facility]) 09/17/2021 ??? Obesity, unspecified ??? Osteomyelitis ([facility]) ([facility]) of left great toe-s/p amputation ??? [...] 0 ??? blood glucose test strips Brand: Pogoseat Precision Cristo, use as directed if Freestyle [...] daily. 400 Each 2 ??? lancets Brand: Evino, use as directed if Freestyle Vignesh roy [...] & [facility] Adult Primary Care - [address] [phone] Carrington Calderon MD [address] [phone] 02/27/2024 8:30 EDT Telemedicine [facility] Sleep Program - [address] [phone] Dwight Colbert [address] [place] [address] [phone] 02/29/2024 10:30 EDT Appointment [facility] Radiology Nuclear Medicine and PET [address] [phone] 02/29/2024 14:30 EDT Appointment [facility] Radiology Nuclear Medicine and PET [address] [phone] 03/01/2024 8:00 EDT Appointment [facility] Radiology Nuclear Medicine and PET [address] [phone] 03/01/2024 9:30 EDT Appointment [facility] Radiology Nuclear Medicine and PET [address] [phone] documented as of this encounter Visit Diagnoses Diagnosis Osteomyelitis of left foot, unspecified type ([facility] Primary Type 2 diabetes mellitus with diabetic polyneuropathy, with long-term current use of insulin ([facility]) Chronic midline low back pain without [...] 06/27/2023 added in this encounter Care Teams Director Of Music Relationship Specialty Start Date End Date Carrington Calderon MD 1 [facility] Level [address] [place] [phone] PCP - General Internal Medicine - Primary Care 12/09/20 documented as of this encounter
--- OUTSIDE RECORDS SUMMARY | 2024-02-06 13:32 | XMS_ITS | Encounter Summary ---
Author Organization [facility] Address [address] [place] [address] Care Team Providers Care Dinkey Operator Name Role Phone Carrington Calderon MD Primary Care Provi anders Abigail Díaz Unavailable [phone] Carmelo Hendrickson Unavailable Unavailable Abigail Díaz Unavailable Reason for Visit * Reason Onset Date Comments Appointment Related 03/17/2022 Encounter Details Date Type Department Care Team (Late st Contact Info) Description 03/17/2022 Telephone [facility] Endocrinology - [facility] [address] [place] [address] Zulma Cross NP 62 [facility] [address] [place] [address] Appointment Related Social History Tobacco [...] Never 01/13/2022 How often does anyone, inclu chivo family, [...] anytime after 06/16/22 Recall Letter Sent thru [facility] Also: Left voicemail to schedule 6 month Follow Up appointment with Dr. Eryn Mims Patient is due anytime after 09/14/22 Recall Letter Sent thru MyChart Please schedule both appointments documented in this encounter Plan of Treatment Upcoming Encounters Date Type Department Care Team (Late st Contact Info) Description 02/21/2024 9:45 EDT Office Visit [facility] Adult Primary Care - [address] [phone] Carrington Calderon MD [address] [phone] 02/27/2024 8:30 EDT Telemedicine [facility] Sleep Program - [address] [phone] Dwight Colbert [address] [place] [phone] 02/29/2024 10:30 EDT Appointment [facility] Radiology Nuclear Medicine and PET - [address] [phone] 02/29/2024 14:30 EDT Appointment [facility] Radiology Nuclear Medicine and PET - [address] [address] 03/01/2024 8:00 EDT Appointment [facility] Radiology Nuclear Medicine and PET [address] [address] 03/01/2024 9:30 EDT Appointment [facility] Radiology Nuclear Medicine and PET - [address] [address] documented as of this encounter Visit Diagnoses Not on filedocumented in this encounter Care Teams Dinkey Operator Relationship Specialty Start Date End Date Carrington Calderon MD 1 [facility] 1 [place] [address] PCP - General Internal Medicine - Primary Care 12/09/20 Abigail Díaz Police Sergeant 04/21/23 01/03/24 Carmelo Hendrickson Coordinator 12/01/23 Abigail Díaz Police Sergeant 01/04/24 documented as of this encounter
--- OUTSIDE RECORDS SUMMARY | 2024-02-06 13:32 | XMS_ITS | Encounter Summary ---
Author Organization [facility] Address [address] [place] [address] Care Team Providers Care Bell Spinner Name Role Phone Carrington Calderon MD Primary Care Provi anders Reason for Visit * Reason Comments Medication Management Encounter Details Date Type Department Care Team (Late st Contact Info) Description 12/17/2022 14:45 EDT Telemedicine [facility] Adult Primary Care - [address] [phone] Carrington Calderon MD 1 [facility] Level [address] [place] [phone] Type 2 diabetes mellitus with diabetic polyneuropathy, with long-term current use of insulin ([facility]) (Primary Dx); Anxiety and depression; Gastroparesis; [...] Dispensed Refills Start Date End Da te ZOLMitriptan (ZOMIG) 2.5 mg tabletIndications:Ca tamenial disorder,Migraine with aura and without status migrainosus, not intractable,Cyclic vomiting syndrome Take 1 Tablet by mouth 2 times daily. BID starting 2 days prior to onset of menses, continuing for a total of 5 days (10 doses) 10 Tablet 11 12/17/2022 prochlorperazine (COMPAZINE) 10 mg tabletIndications:Cy clic vomiting syndrome Take 1 Tablet by mouth every 8 hours as needed for Nausea. 8 Tablet 11 12/17/2022 prochlorperazine (COMPAZINE) 25 mg suppositoryIndicatio ns:Cyclic vomiting syndrome Place 1 Suppository rectally every 12 hours as needed for Nausea. 6 Suppository 11 12/17/2022 omeprazole (PRILOSEC) 20 mg capsuleIndications:G astroparesis Take 1 Capsule by mouth daily. 90 Capsule 3 12/17/2022 DULoxetine 40 mg capsule,delayed release(DR/EC)Indica tions:Anxiety and depression Take 40 mg by mouth daily. 30 Capsule 11 12/17/2022 01/18/2024 documented in this encounter Progress Notes * Carrington Calderon MD - 12/17/2022 1446 EDT Primary Care Video Visit Assessment & Plan Diagnoses and all orders for this visit: Type 2 diabetes mellitus with diabetic polyneuropathy, with long-term current use of insulin ([facility]) ([facility]): No change made today. Will inquire regarding [...] taken for this visit. Physical Exam * [email or web address] - 12/17/2022 3765 EDT The concept of ???Telemedicine?? has been [...] Home Patient location state: Visit Location State: [place] The location of the provider: Office Provider location state: Visit Location State: [place] The following people and their roles were present for today's visit: Appointment Provider: Carrington Calderon MD Sopheab Miles documented in this encounter Plan of Treatment Upcoming Encounters Date Type Department Care Team (Late st Contact Info) Description 02/21/2024 9:45 EDT Office Visit [facility] Adult Primary Care - [address] [phone] Carrington Calderon MD [address] [phone] 02/27/2024 8:30 EDT Telemedicine [facility] Sleep Program - [address] [phone] Dwight Colbert [address] [place] [phone] 02/29/2024 10:30 EDT Appointment [facility] Radiology Nuclear Medicine and PET - [address] [phone] 02/29/2024 14:30 EDT [facility] and PET - [address] [phone] 03/01/2024 8:00 EDT Appointment [facility] Radiology Nuclear Medicine and PET - [address] [phone] 03/01/2024 9:30 EDT Appointment [facility] Radiology Nuclear Medicine and PET [address] [phone] documented as of this encounter Visit Diagnoses Diagnosis Type 2 diabetes mellitus with diabetic polyneuropathy, with long-term current use of insulin ([facility])- Primary Anxiety and depression Dysthymic disorder Gastroparesis Catamenial disorder Unspecified disorder of menstruation and other abnormal bleeding from female genital tract Migraine with aura and without status migrainosus, not intractable Migraine with aura, without mention of intractable migraine without mention of status migrainosus Cyclic vomiting syndrome Persistent vomiting documented in this encounter Discontinued Medications Medication Sig Discontinue Reason Start Date End prochlorperazine (COMPAZINE) 25 mg suppositoryIndications :Gastroparesis Place [...] documented as of this encounter Care Teams Bell Spinner Relationship Specialty Start Date End Date Carrington Calderon MD 1 [facility] 1 [place] [phone] PCP - General Internal Medicine - Primary Care 12/09/20 documented as of this encounter
--- OUTSIDE RECORDS SUMMARY | 2024-02-06 13:32 | XMS_ITS | Encounter Summary ---
Author Organization [facility] Address [address] [place] [address] Care Team Providers Care It Professional Name Role Phone Carrington Calderon MD Primary Care Provi anders Reason for Visit * Reason Onset Date Comments No Show 04/02/2022 Encounter Details Date Type Department Care Team (Late st Contact Info) Description 04/02/2022 Telephone [facility] Adult Primary Care [facility] 1 [place], [place] [phone] Carrington Calderon MD 1 [facility] Level [address] [place] [phone] No Show Social History Tobacco [...] slept in a retirement (including now)? No 01/13/2022 Interpersonal Safety Answer [...] not leave a message. Also sent a [employer] message to contact the office to reschedule [...] [facility] - [address] [phone] Carrington Calderon MD [address] [phone] 02/27/2024 8:30 EDT Telemedicine [facility] Sleep Program - [address] [phone] Dwight Colebrt [address] [place] [phone] 02/29/2024 10:30 EDT Appointment [facility] Radiology Nuclear Medicine and PET - [address] [phone] 02/29/2024 14:30 EDT Appointment [facility] Radiology Nuclear Medicine and PET - [address] [address] 03/01/2024 8:00 EDT Appointment [facility] Radiology Nuclear Medicine and PET [address] [address] 03/01/2024 9:30 EDT Appointment [facility] Radiology Nuclear Medicine and PET [address] [phone] documented as of this encounter Visit Diagnoses Not on filedocumented in this encounter Care Teams It Professional Relationship Specialty Start Date End Date Carrington Calderon MD 1 [facility] Level [address] [place] [phone] PCP - General Internal Medicine - Primary Care 12/09/20 documented as of this encounter
--- OUTSIDE RECORDS SUMMARY | 2024-02-06 13:32 | XMS_ITS | Encounter Summary ---
Author Organization [facility] Address [address] [place] [address] Care Team Providers Care Blade Filer Name Role Phone Carrington Calderon MD Primary Care Provi anders Reason for Visit * Reason Comments Pre-op Exam Toe amputation Encounter Details Date Type Department Care Team (Late st Contact Info) Description 05/20/2022 13:45 EST Office Visit [facility] Adult Primary Care - [place] [address] [place], [place] [address] Rachel Stein PA-C 1 [facility] Level [address] [place] [address] Type 2 diabetes mellitus with diabetic polyneuropathy, with long-term current use of insulin ([facility]) (Primary Dx); Preop examination Social History Tobacco [...] Care Everywhere. * Surgery Prep: General Info (Citizen Of [place]) documented in this encounter Progress Notes * Rachel Stein PA-C - 05/20/2022 [id number] EST Subjective: Cristy Luo is a 37 y.o. female who presents to the office today for a preoperative consultation at the request of Dr. Ester Gabriel, who will perform a L third toe [facility] [place] Current Complaints: Failure of IV abx [place] SURGEON: Dr. Prudence Gabriel PROCEDURE: toe amputation [phone] Office name: [facility] Prior h/o of anesthetic [...] referral for therapy. ??? Diabetes ([facility]) A1c 10.3 on 11/28/2019 - poorly controlled ??? Diabetes mellitus, type 2 ([facility]) pt check blood sugars at [...] Neuropathic diabetic ulcer of foot ([facility]) 09/17/2021 ??? Obesity, unspecified ??? Osteomyelitis ([facility]) of left great toe-s/p amputation ??? Peripheral neuropathy 08/12/20- Bilateral feet-Takes Gabapentin- pt just started this med. ??? Productive cough pt currently quitting smoking- clear secretions. ??? Spontaneous miscarriage 09/04/201502/18, 08/19. [facility] History Problem Relation Age of Onset [...] daily. 400 Each 2 ??? lancets Brand: [employer]summitbio, use as directed if Freestyle Vignesh censor [...] long-term current use of insulin ([facility]) ([facility]) 2. Preop examination No contraindications to planned [...] [facility] - [address] 584671 Carrington Calderon MD [address] [address] 02/27/2024 8:30 EDT Telemedicine [facility] Sleep Program - [address] 553151 Dwight Colbert [address] [place] [address] [phone] 02/29/2024 10:30 EDT Appointment [facility] Radiology Nuclear Medicine and PET [address] [id number] 02/29/2024 14:30 EDT Appointment [facility] Radiology Nuclear Medicine and PET - [address] [id number] 03/01/2024 8:00 EDT Appointment [facility] Radiology Nuclear Medicine and PET [address] [id number] 03/01/2024 9:30 EDT Appointment [facility] Radiology Nuclear Medicine and PET [address] [phone] documented as of this encounter Procedures Procedure Name Priority Date/Time Associated Diagnosis Comments ECG REPORT - SCANNED 05/21/2022 11:24 EST ECG REPORT - SCANNED 05/21/2022 11:24 EST EKG 12-LEAD Routine 05/20/2022 14:39 EST Type 2 diabetes mellitus with diabetic polyneuropathy, with long-term current use of insulin ([facility]) Preop examination documented in this encounter Results * ECG REPORT - SCANNED (05/21/2022 11:24 EST) 05/21/2022 11:2 4 EST Scan 2 Distribution Clerk PROCEDURE/MINOR BRAULIO GICAL ORDERABLES * ECG REPORT - SCANNED (05/21/2022 11:24 EST) 05/21/2022 11:2 4 EST Scan 2 Distribution Clerk PROCEDURE/MINOR BRAULIO GICAL ORDERABLES * EKG 12-LEAD (05/20/2022 14:39 EST) 05/20/2022 14:3 9 EST Narrative [facility] EKG - 05/20/2022 14:56 EST ? PC Site ? Test Date: ?2022-05-20 Pat Name: ? CRISTY LUO ?Department: ?? [facility] ? Room: ? Gender: ? Female ? Brine Tank Tender: ?? [id number] : ?1985 ? Requested By: GARRISON KIRBY Order Number: [id number] ? Reading MD: ?? Rachel Stein PA- C ? Measurements Intervals ?[place] ? Rate: ? 114 ?P: ?57 CO: ? 141 ?QRS: ?17 QRSD: ? 88 [...] Date: 2022-05-20 Pat Name: CRISTY LUO Department: [facility] Room: Gender: Female Brine Tank Tender: [id number] : 1985 Requested By: GARRISON KIRBY Order Number: [id number] Reading MD: Rachel Colon Measurements Intervals [place] Rate: 114 P: 57 CO: 141 QRS: 17 QRSD: 88 T: 28 [...] Stein PA-C CARDIAC ECG ORDERA [facility] Organization Address City/State/ZIP Co de Phone Number [facility] EKG documented in this encounter Visit Diagnoses Diagnosis Type 2 diabetes mellitus with diabetic polyneuropathy, with long-term current use of insulin ([facility])- Primary Preop examination Preoperative examination, [...] long-term current use of insulin ([facility]) Inject 1 Kit into the skin every 14 days. Patient Stopped Taking 01/29/2022 05/21/2022 flash glucose sensor (FREESTYLE VIGNESH 2 SENSOR) kit 1 Device by misc (non-drug; combo route) route continuous. Patient Stopped Taking 03/15/2022 05/21/2022 TENS unit and electrodes combo pack 1 Each by misc (non-drug; combo route) route daily. Patient Stopped Taking 08/01/2020 05/21/2022 documented as of this encounter Care Teams Blade Filer Relationship Specialty Start Date End Date Carrington Calderon MD 1 [facility] [address] [place] [address] PCP - General Internal Medicine - Primary Care 12/09/20 documented as of this encounter
--- OUTSIDE RECORDS SUMMARY | 2024-02-06 13:32 | XMS_ITS | Encounter Summary ---
Author Organization [facility] Address [address] [place] [address] Care Team Providers Care Director [facility] Name Role Phone Carrington Calderon MD Primary Care Provi anders Reason for Visit * Reason Comments Medications Refill Encounter Details Date Type Department Care Team (Late st Contact Info) Description 10/15/2022 Refill [facility] Adult Primary Care [facility] 1 [place], [place] [address] Carrington Calderon MD 1 [facility] Level 1 [place] [address] Medications Refill Social History Tobacco [...] Visit [facility] Adult Primary Care - [address] 475411 Carrington Calderon MD 1 [facility] 1 [place] [address] 02/27/2024 8:30 EDT Telemedicine [facility] Sleep Program - [address] [phone] Dwight Colbert [address] [place] [address] [phone] 02/29/2024 10:30 EDT [facility]ment [facility] [place] [facility] Rad[facility] Nuclear Medicine and PET - [address] [address] 02/29/2024 14:30 EDT Appointment [facility] Radiology Nuclear Medicine and PET - [address] [address] 03/01/2024 8:00 EDT Appointment [facility] Radiology Nuclear Medicine and PET - [address] [address] 03/01/2024 9:30 EDT Appointment [facility] Radiology Nuclear Medicine and PET - [address] [address] documented as of this encounter Visit Diagnoses [...] documented as of this encounter Care Teams Director [facility] Sclerosis [facility] Relationship Specialty Start Date End Date Carrington Calderon MD 1 [facility] Level [address] [place] [address] PCP - General Internal Medicine - Primary Care 12/09/20 documented as of this encounter
--- OUTSIDE RECORDS SUMMARY | 2024-02-06 13:32 | XMS_ITS | Encounter Summary ---
Author Organization [facility] Address [address] [place] [address] Care Team Providers Care Purchasing Internship Name Role Phone Carrington Calderon MD Primary Care Provi anders Reason for Visit * Reason Comments Med Change Request Encounter Details Date Type Department Care Team (Late st Contact Info) Description 09/14/2022 [facility] Adult Primary Care [address] [phone] Nimisha Clifton, GUSTAVO 1 [facility] Level [address] [place] [address] Med Change Request Social History [...] FLEXPEN) 100 unit/mL (3 mL) injectable pen [[id number]] ?? Order Details Dose: 12 Units Route: [...] [facility] Adult Primary Care - [address] [phone] Carrington Calderon MD [address] [phone] 02/27/2024 8:30 EDT Telemedicine [facility] Sleep Program - [address] [phone] Dwight Colbert [address] [place] [phone] 02/29/2024 10:30 EDT Appointment [facility] Radiology Nuclear Medicine and PET - [address] [phone] 02/29/2024 14:30 EDT Appointment [facility] Radiology Nuclear Medicine and PET - [address] [address] 03/01/2024 8:00 EDT Appointment [facility] Radiology Nuclear Medicine and PET - [address] [address] 03/01/2024 9:30 EDT Appointment [facility] Radiology Nuclear Medicine and PET - [address] [address] documented as of this encounter Visit Diagnoses Diagnosis Type 2 diabetes mellitus with diabetic polyneuropathy, with long-term current use of insulin ([facility])- Primary documented in this encounter Care Teams Purchasing Internship Relationship Specialty Start Date End Date Carrington Calderon MD 1 [facility] 1 [place] [address] PCP - General Internal Medicine - Primary Care 12/09/20 documented as of this encounter
--- OUTSIDE RECORDS SUMMARY | 2024-02-06 13:32 | XMS_ITS | Encounter Summary ---
Author Organization [facility] Address [address] [place] [address] Care Team Providers Care Major League Baseball Player Name Role Phone Carrington Calderon MD Primary Care Provi anders Abigail Díaz Unavailable Carmelo Hendrickson Unavailable Unavailable Abigail Díaz Unavailable Encounter Details Date Type Department Care Team (Late st Contact Info) Description 09/13/2022 Lab Requisition [facility] Pathology & Laboratory Medicine - [address] [address] Ester Gabriel [address] [place] [address] Encounter for other general examination [...] [facility] Adult Primary Care - [address] [phone] Carrington Calderon MD [address] [phone] 02/27/2024 8:30 EDT Telemedicine [facility] Sleep Program - [address] [phone] Dwight Colbert [address] [place] [address] [phone] 02/29/2024 10:30 EDT Appointment [facility] Radiology Nuclear Medicine and PET [address] 073171 02/29/2024 14:30 EDT Appointment [facility] Radiology Nuclear Medicine and PET [address] [id number] 03/01/2024 8:00 EDT Appointment [facility] Radiology Nuclear Medicine and PET [address] [phone] 03/01/2024 9:30 EDT Appointment [facility] Radiology Nuclear Medicine and PET [address] [phone] documented as of this encounter Procedures Procedure [...] explore management options, if applicable. 09/20/2022 10:01 [facility] Final Diagnosis A. TOE, LEFT 2ND, AMPUTATION: - Acute osteomyelitis. - Disarticulated joint margin negative for acute osteomyelitis. - Skin with ulceration, cellulitis and dermal fibrosis. 09/20/2022 10:01 [facility] Attestation By the signature below, the attending physician certifies that they have 1) personally conducted a gross and/or microscopic examination of the described specimen(s), and/or personally interpreted the results of laboratory testing of the described specimen(s), and 2) personally rendered or confirmed the above diagnosis. 09/20/2022 10:01 [facility] at 1001 Clinical History Osteomyelitis 09/20/2022 10:01 [facility] Gross Description A. Received [...] the resection margin is without gross lesions. Anthropology Faculty Member sections are submitted following acid decalcification as follows: BLOCK SHIELDS A1- perpendicular sections ulceration to include nearest skin and soft tissue margin A2- bone margin EUNICE RILEY(ASCP) 09/13/2022 13:00 09/20/2022 10:01 [facility] Performing Lab [facility] 04 / 10:01 EDT [facility] Scanned Images 09/20/2022 10:01 EDT [facility] Tissue TRAUMATIC AMPUTATION OF UPPER LIMB / Unknown 09/10/2022 9:17 EDT 09/13/2022 8:56 EDT Ester S Harvey PATHOLOGY ORDERABLES [facility] [address] [place] [address] documented in this encounter Visit Diagnoses Diagnosis Encounter for other general examination documented in this encounter Care Teams Major League Baseball Player Relationship Specialty Start Date End Date Carrington Calderon MD [address] [phone] PCP - General Internal Medicine - Primary Care 12/09/20 Abigail Díaz Business Editor 04/21/23 01/03/24 Carmelo Hendrickson Coordinator 12/01/23 Abigail Díaz Business Editor 01/04/24 documented as of this encounter
--- OUTSIDE RECORDS SUMMARY | 2024-02-06 13:32 | XMS_ITS | Encounter Summary ---
Author Organization [facility] Address [address] [place] [address] Care Team Providers Care Pecan Picker Name Role Phone Carrington Calderon MD Primary Care Provi anders Reason for Visit * Reason Onset Date Comments Prior Auth, Medication 09/04/2022 Encounter Details Date Type Department Care Team (Late st Contact Info) Description 09/04/2022 Telephone [facility] Adult Primary Care [address] 565221 Carrington Calderon MD 1 [facility] Level [address] [place] [phone] Prior Auth, Medication Social History Tobacco [...] Q54A Group name: [employer] BIN: [id number] PCN: PA has been completed via ePa Awaiting reply documented in this encounter Plan of Treatment Upcoming Encounters Date Type Department Care Team (Late st Contact Info) Description 02/21/2024 9:45 EDT Office Visit [facility] Adult Primary Care - [address] 655311 Carrington Calderon MD [address] [place] [phone] 02/27/2024 8:30 EDT Telemedicine [facility] Sleep Program - [address] [phone] Dwight Colbert [address] [place], [place] [address] 02/29/2024 10:30 EDT [facility]ment [facility] Radiology Nuclear Medicine and PET - [address] [id number] 02/29/2024 14:30 EDT Appointment [facility] Radiology Nuclear Medicine and PET - [address] [id number] 03/01/2024 8:00 EDT Appointment [facility] Radiology Nuclear Medicine and PET - [address] [phone] 03/01/2024 9:30 EDT Appointment [facility] Radiology Nuclear Medicine and PET - [address] [phone] documented as of this encounter Visit Diagnoses Not on filedocumented in this encounter Care Teams Pecan Picker Relationship Specialty Start Date End Date Carrington Calderon MD 1 [facility] Level 1 [place] [address] PCP - General Internal Medicine - Primary Care 12/09/20 documented as of this encounter
--- OUTSIDE RECORDS SUMMARY | 2024-02-06 13:32 | XMS_ITS | Encounter Summary ---
Author Organization [facility] Address [address] [place] [address] Care Team Providers Care Planning Coordinator Name Role Phone Carrington Calderon MD Primary Care Provi anders Abigail Díaz Unavailable Carmelo Hendrickson Unavailable Unavailable Abigail Díaz Unavailable Reason for Visit * Reason Comments Medications Refill Encounter Details Date Type Department Care Team (Late st Contact Info) Description 01/04/2023 Refill [facility] Adult Primary Care - [address] [address] Carrington Calderon MD 1 [facility] Level 1 [place] [phone] Medications Refill Social History Tobacco Use Types [...] HOURS NEEDED FOR PAIN. DAILY MAX 200MG [facility] [address] [place] [address] Confirmed Pharmacy? Yes Patient out of medication? Unknown Last Refill Date: 11/17/22 Refills left? (explain exceptions requiring early refill) No Recent Visits Date Type Provider Dept 11/17/22 Office Visit Carrington Calderon MD [facility] Adult Prim Care 09/02/22 Office Visit Nimihsa Clifton NP [facility] Adult Prim Care 05/20/22 Office Visit Rachel Stein PA-C [facility] Adult Prim Care Showing recent visits within past 540 days with a meds authorizing provider and meeting all other requirements Future Appointments Date Type Provider Dept 03/16/23 Appointment Carrington Calderon MD [facility] Adult Prim Care Showing future appointments within next 150 days with a meds authorizing provider and meeting all other requirements Future appointment: Already Scheduled JOSS WASHINGTON RN 01/05/2023 8:04 documented in this encounter Plan of Treatment Upcoming Encounters Date Type Department Care Team (Late st Contact Info) Description 02/21/2024 9:45 EDT Office Visit [facility] Adult Primary Care - [address] [phone] Carrington Calderon MD [address] [place] [phone] 02/27/2024 8:30 EDT Telemedicine [facility] Sleep Program - [address] 000741 Dwight Colbert [address] [place] [phone] 02/29/2024 10:30 EDT Appointment [facility] Radiology Nuclear Medicine and PET [address] 328261 02/29/2024 14:30 EDT Appointment [facility] Radiology Nuclear Medicine and PET [address] [phone] 03/01/2024 8:00 EDT Appointment [facility] Radiology Nuclear Medicine and PET [address] 985261 03/01/2024 9:30 EDT Appointment [facility] Radiology Nuclear Medicine and PET [address] [phone] documented as of this encounter Visit Diagnoses [...] documented as of this encounter Care Teams Planning Coordinator Relationship Specialty Start Date End Date Carrington Calderon MD 1 [facility] 1 [place] [phone] PCP - General Internal Medicine - Primary Care 12/09/20 Abigail Díaz Steam Clean Machine Operator 04/21/23 01/03/24 Carmelo Hendrickson Coordinator 12/01/23 Abigail Díaz Steam Clean Machine Operator 01/04/24 documented as of this encounter
--- OUTSIDE RECORDS SUMMARY | 2024-02-06 13:32 | XMS_ITS | Encounter Summary ---
Author Organization [facility] Address [address] [place] [address] Care Team Providers Care Corn Breeder Name Role Phone Carrington Calderon MD Primary Care Provi anders Abigail Díaz Unavailable Carmelo Hendrickson Unavailable Unavailable Abigail Díaz Unavailable Encounter Details Date Type Department Care Team (Late st Contact Info) Description 06/01/2022 Lab Requisition [facility] Pathology & Laboratory Medicine - [address] [address] Ester Gabriel [address] [place] [address] Encounter for other general examination [...] [facility] Adult Primary Care - [address] 409411 Carrington Calderon MD [address] [phone] 02/27/2024 8:30 EDT Telemedicine [facility] Sleep Program - [address] 197071 Dwight Colbert [address] [place] [address] [phone] 02/29/2024 10:30 EDT Appointment [facility] Radiology Nuclear Medicine and PET [address] [phone] 02/29/2024 14:30 EDT Appointment [facility] Radiology Nuclear Medicine and PET [address] [phone] 03/01/2024 8:00 EDT Appointment [facility] Radiology Nuclear Medicine and PET [address] [phone] 03/01/2024 9:30 EDT Appointment [facility] Radiology Nuclear Medicine and PET [address] [phone] documented as of this encounter Procedures Procedure [...] explore management options, if applicable. 06/15/2022 11:18 [facility] Final Diagnosis A. 3RD TOE, LEFT FOOT, ? DISTAL? , AMPUTATION: - Skin with ulceration and gangrenous necrosis. - Bone with remodeling changes and patchy chronic inflammation. See comment. 06/15/2022 11:18 [facility] Diagnosis Comment Overall, the findings are nonspecific but could be compatible with chronic osteomyelitis in the appropriate clinical setting. The disarticulation margin is grossly unremarkable. Histologic features diagnostic of acute osteomyelitis are not seen in the guest experience representative sections submitted. 06/15/2022 11:18 [facility] Attestation There was significant resident/fellow involvement in the diagnostic evaluation of this case. By the signature below, the attending physician certifies that they have personally conducted a gross and/or microscopic examination of the described specimens and rendered or confirmed the above diagnosis. 06/15/2022 11:18 [facility] at 1118 Clinical History Osteomyelitis 06/15/2022 11:18 [facility] Gross Description A. [...] viable. The proximal margin is inked blue. Distance Learning Program Coordinator sections are submitted following acid decalcification as follows: BLOCK SHIELDS A1- bone underlying eschar A2- proximal soft tissue margin Carrington Bravo MD 06/01/2022 15:00 06/15/2022 11:18 EST [facility] Resident/Cash w: Carrington Bravo MD 06/15/2022 11:18 EST [facility] Performing Lab [facility] 11:18 EST [facility] Scanned Images 06/15/2022 11:18 EST [facility] Tissue TRAUMATIC AMPUTATION OF UPPER LIMB / Unknown 05/28/2022 7:50 EST 06/01/2022 8:27 EST Ester Tirado Gabriel PATHOLOGY ORDERABLES Performing Organization Address City/State/[facility] Co de Phone Number [facility] [address] [place] [address] documented in this encounter Visit Diagnoses Diagnosis Encounter for other general examination documented in this encounter Care Teams Corn Breeder Relationship Specialty Start Date End Date Carrington Calderon MD [address] [facility] 1 [place] [address] PCP - General Internal Medicine - Primary Care 12/09/20 Abigail Díaz Level Vial Grinder 04/21/23 01/03/24 Carmelo Hendrickson Coordinator 12/01/23 Abigail Díaz Level Vial Grinder 01/04/24 documented as of this encounter
--- OUTSIDE RECORDS SUMMARY | 2024-02-06 13:32 | XMS_ITS | Encounter Summary ---
Author Organization [facility] Address [address] [place] [address] Care Team Providers Care Diesel Instructor Name Role Phone Carrington Calderon MD Primary Care Provi anders Reason for Visit * Reason Comments Medications Refill Encounter Details Date Type Department Care Team (Late st Contact Info) Description 02/28/[address] [facility] Adult Primary Care [facility] 1 [place], [place] [phone] Kylah Weiner MD 1 [facility] Level 1 [place] [phone] Medications Refill Social History Tobacco [...] [facility] Adult Primary Care - [address] [phone] Carrington Calderon MD 1 [facility] 1 [place] [address] 02/27/2024 8:[address] [facility] Sleep Program - [address] 853131 Dwight Colbert [address] [place] [address] [phone] 02/29/2024 10:30 EDT [facility]ointment [facility] Nuclear Medicine and PET - [address] [id number] 02/29/2024 14:30 EDT Appointment [facility] Radiology Nuclear Medicine and PET - [address] [address] 03/01/2024 8:00 EDT Appointment [facility] Radiology Nuclear Medicine and PET - [address] [address] 03/01/2024 9:30 EDT Appointment [facility] Radiology Nuclear Medicine and PET - [address] [phone] documented as of this encounter Visit Diagnoses Not on filedocumented in this encounter Discontinued Medications Medication Sig Discontinue Reason Start Date End Da te omeprazole (PRILOSEC) 20 mg capsule Take 1 capsule by mouth daily. 01/26/2021 03/02/2022 documented as of this encounter Care Teams Diesel Instructor Relationship Specialty Start Date End Date Carrington Calderon MD 1 [facility] Level 1 [place] [address] PCP - General Internal Medicine - Primary Care 12/09/20 documented as of this encounter
--- OUTSIDE RECORDS SUMMARY | 2024-02-06 13:32 | XMS_ITS | Encounter Summary ---
Author Organization [facility] Address [address] [place] [address] Care Team Providers Care Paperboard Boxes Estimator Name Role Phone Carrington Calderon MD Primary Care Provi anders Reason for Visit * Reason Comments Med Change Request Encounter Details Date Type Department Care Team (Late st Contact Info) Description 01/06/2023 [facility] Adult Primary Care [address] [phone] Staci Adhikari MD 1 [facility] Level [address] [place] [phone] Med Change Request Social History Tobacco [...] [facility] - [address] 267131 Carrington Calderon MD [address] [phone] 02/27/2024 8:30 EDT Telemedicine [facility] Sleep Program - [address] 002141 Dwight Colbert [address] [place] [address] [phone] 02/29/2024 10:30 EDT Appointment [facility] Radiology Nuclear Medicine and PET - [address] 196261 02/29/2024 14:30 EDT Appointment [facility] Radiology Nuclear Medicine and PET - [address] [id number] 03/01/2024 8:00 EDT Appointment [facility] Radiology Nuclear Medicine and PET - [address] [id number] 03/01/2024 9:30 EDT Appointment [facility] Radiology Nuclear Medicine and PET - [address] 646151 documented as of this encounter Visit Diagnoses Diagnosis Chronic midline low back pain without sciatica- Primary documented in this encounter Care Teams Paperboard Boxes Estimator Relationship Specialty Start Date End Date Carrington Calderon MD 1 [facility] Level 1 [place] [phone] PCP - General Internal Medicine - Primary Care 12/09/20 documented as of this encounter
--- OUTSIDE RECORDS SUMMARY | 2024-02-06 13:32 | XMS_ITS | Encounter Summary ---
Author Organization [facility] Address [address] [place] [address] Care Team Providers Care Director Of Federal Sales Name Role Phone Carrington Calderon MD Primary Care Provi anders Reason for Visit * (Routine/Next Available) - Receiving Office to Obtain Authorization Specialty Diagnoses / Procedures Referred By Kit goode Referred To Contact Procedures XR OUTSIDE IMAGES NEURO Imaging, External Referral ID Status Reason Start Date Expiration Date Visits Requested Visits Authorized [id number] Receiving Office to Obtain Authorization 2 1 1 Encounter Details Date Type Department Care Team (Latest Contact Info) Description 03/18/2022 - 03/18/2022 23:59 EDT Hospital Encounter [facility] Secondary Reads [place] Discharge Disposition: Home [...] use of insulin ([facility]) One Touch Verio Flex meter. 1 Each 12/21/2021 06/27/2023 blood glucose test strips Brand: GigaMediaStyle Precision Cristo, use as directed if Freestyle [...] insulin ([facility]) Inject 1 Kit into the skin every 14 days. 6 Kit 3 01/29/2022 05/21/2022 flash glucose sensor (FREESTYLE VIGNESH 2 SENSOR) kit 1 Device by misc (non-drug; combo route) route continuous. 6 Kit 3 03/15/2022 05/21/2022 gabapentin (NEURONTIN) 300 mg capsuleIndications:Di abetic polyneuropathy associated with type 2 diabetes mellitus ([facility]) Take 300mg in the morning and [...] use of insulin ([facility]) Inject 40 Units into the skin at bedtime for 90 days. 36 mL 4 12/21/2021 11/17/2022 insulin pen needles 31G x 5/16Indications:Type 2 diabetes mellitus with hyperglycemia, with long-term current use of insulin ([facility]) Use 1 pen needle as directed 4 times daily. 400 Each 2 09/02/2020 03/16/2023 lancets Brand: Freestyle, use as directed if Freestyle Vignesh censor isnt working 100 Each 3 10/06/2020 03/16/2023 lancets One Touch Delica or other brand compatible with lancing device and covered by patient's insurance. 100 Each 5 10/01/2020 03/16/2023 lidocaine 5 % (LIDODERM) 5 % patchIndications:Plate Shop Helper gordo midline low back pain without [...] nicotine (NICODERM CQ) 14 mg/24 hr patchIndications:Toba chief accounting officer use Apply one patch only daily on skin without hair. Apply to a different skin site at the same time each day. 42 Patch 01/29/2022 09/02/2022 nicotine (NICODERM CQ) 7 mg/24 hr patchIndications:Toba chief accounting officer use Apply one patch only daily on [...] [facility] Adult Primary Care - [address] [phone] Carrington Calderon MD [address] [phone] 02/27/2024 8:30 EDT Telemedicine [facility] Sleep Program - [address] [phone] Dwight Colbert [address] [place] [address] [phone] 02/29/2024 10:[address] [facility] Radiology Nuclear Medicine and PET - [address] [phone] 02/29/2024 14:[address] [facility] Radiology Nuclear Medicine and PET [address] 830201 03/01/2024 8:[address] [facility] Radiology Nuclear Medicine and PET - [address] 700801 03/01/2024 9:30 EDT Appointment [facility] Radiology Nuclear Medicine and PET [address] 866851 documented as of this encounter Procedures Procedure [...] in this encounter Care Teams Director Of Federal Sales Relationship Specialty Start Date End Date Carrington Calderon MD 1 [facility] Level 1 [place] [address] PCP - General Internal Medicine - Primary Care 12/09/20 documented as of this encounter
--- OUTSIDE RECORDS SUMMARY | 2024-02-06 13:32 | XMS_ITS | Encounter Summary ---
Author Organization [facility] Address [address] [place] [address] Care Team Providers Care Preparer Samples And Repairs Name Role Phone Carrington Calderon MD Primary Care Provi anders Reason for Visit * Reason Onset Date Comments Results 03/30/2022 Encounter Details Date Type Department Care Team (Late st Contact Info) Description 03/30/2022 Telephone [facility] Adult Primary Care [address] 191961 Carrington Calderon MD 1 [facility] Level [address] [place] [phone] Results Social History Tobacco Use Types [...] that her lumbar spine x-ray done at [facility] shows some mild arthritis throughout the lower [...] [facility] Adult Primary Care - [address] [address] Carrington Calderon MD [address] [place] [phone] 02/27/2024 8:30 EDT Telemedicine [facility] Sleep Program - [address] [address] ColbertDwight garner [address] [place] [address] 02/29/2024 10:30 EDT Appointment [facility] Radiology Nuclear Medicine and PET [address] 913631 02/29/2024 14:30 EDT Appointment [facility] Radiology Nuclear Medicine and PET [address] 711121 03/01/2024 8:00 EDT Appointment [facility] Radiology Nuclear Medicine and PET [address] 565361 03/01/2024 9:30 EDT Appointment [facility] Radiology Nuclear Medicine and PET [address] 403151 documented as of this encounter Visit Diagnoses Not on filedocumented in this encounter Care Teams Preparer Samples And Repairs Relationship Specialty Start Date End Date Carrington Calderon MD [address] [place] [phone] PCP - General Internal Medicine - Primary Care 12/09/20 documented as of this encounter
--- OUTSIDE RECORDS SUMMARY | 2024-02-06 13:32 | XMS_ITS | Encounter Summary ---
Author Organization [facility] Address [address] [place] [address] Care Team Providers Care Medical Front Desk Specialist Name Role Phone Carrington Calderon MD Primary Care Provi anders Reason for Visit * Reason Comments Diabetes * Consult (See Order Priority) - Order Cancelled Specialty Diagnoses / Procedures Referred By Kit goode Referred To Contact Endocrinology Diagnoses Type 2 diabetes mellitus with diabetic polyneuropathy, with long-term current use of insulin ([facility]) Carrington Calderon MD 1 [facility] Level 1 [place] [address] [facility] Endocrinology [address] [place] [address] Referral ID Status Reason Start Date Expiration Date Visits Requested Visits Authorized [id number] Order Cancelled Specialty Services Required 01/29/2022 1 1 Encounter Details Date Type Department Care Team (Late st Contact Info) Description 03/15/2022 8:40 EDT Telemedicine [facility] Endocrinology - [address] [address] Eryn Mims DO [address] [place] [address] [address] [place] [address] Type 2 diabetes mellitus with [...] 0 ??? blood glucose test strips Brand: Xianguo Cristo, use as directed if Freestyle Vignesh censor isnt working (Patient not taking: Reported on 10/09/2021) 100 Each 3 ??? blood glucose test strips One Touch Verio IQ or other brand compatible with meter and covered by patient's insurance. Testing QID. (Patient not taking: Reported on 10/09/2021) 100 Each 5 ??? flash glucose scanning reader (FREESTYLE VIGNESH 2 READER) misc 1 Device by [facility] (non-drug; comboroute) route continuous. 1 Each 0 ??? flash glucose sensor (FREESTYLE VIGNESH 14 DAY SENSOR) kit Inject 1 Kit into the skin every 14 days. 6 Kit 3 ??? flash glucose sensor (FREESTYLE VIGNESH 2 SENSOR) kit 1 Device by [facility] (non- drug; combo route) route continuous. 6 [...] [facility] Adult Primary Care - [address] [phone] Carrington Calderon MD [address] [phone] 02/27/2024 8:30 EDT Telemedicine [facility] Sleep Program - [address] [phone] Dwight Colbert [address] [place] [phone] 02/29/2024 10:30 EDT Appointment [facility] Radiology Nuclear Medicine and PET - [address] [phone] 02/29/2024 14:30 EDT Appointment [facility] Radiology Nuclear Medicine and PET - [address] 613821 03/01/2024 8:00 EDT Appointment [facility] Radiology Nuclear Medicine and PET - [address] [address] 03/01/2024 9:30 EDT Appointment [facility] Radiology Nuclear Medicine and PET - [address] [address] documented as of this encounter Visit Diagnoses Diagnosis Type 2 diabetes mellitus with diabetic polyneuropathy, with long-term current use of insulin ([facility] Primary documented in this encounter Discontinued Medications Medication Sig Discontinue Reason Start Date End Da te flash glucose sensor (FREESTYLE VIGNESH 2 SENSOR) kit 1 Device by misc (non-drug; combo route) route continuous. Reorder 10/01/2020 03/15/2022 SITagliptin (JANUVIA) 50 mg tablet Take 1 Tab by mouth daily. Reorder 09/02/2020 03/15/2022 documented as of this encounter Care Teams Medical Front Desk Specialist Relationship Specialty Start Date End Date Carrington Calderon MD 1 [facility] Level 1 [place] [phone] PCP - General Internal Medicine - Primary Care 12/09/20 documented as of this encounter
--- OUTSIDE RECORDS SUMMARY | 2024-02-06 13:33 | XMS_ITS | Encounter Summary ---
Author Organization [facility] Address [address] [place] [address] Care Team Providers Care Director Asset Name Role Phone Carrington Calderon MD Primary Care Provi anders Reason for Visit * Reason Onset Date Comments Prior Auth, Medication 01/29/2022 Encounter Details Date Type Department Care Team (Late st Contact Info) Description 01/29/2022 Telephone [facility] Adult Primary Care [address] [phone] Carrington Calderon MD 1 [facility] Level [address] [place] [phone] Prior Auth, Medication Social History Tobacco [...] [place] - 02/26/20[address] [facility] to check and see what is going on with the patients sensors at the patientis all out and needs these EDGARD. Per [facility] Azra, when this is ran it states drug therapy is not on file. OV notes and completed form have been faxed to [facility] for approval. * Telephone Encounter - Satinder [...] Free style Nissa 14 day sensor Mejia: [id number] documented in this encounter Plan of Treatment Upcoming Encounters Date Type Department Care Team (Late st Contact Info) Description 02/21/2024 9:45 EDT Office Visit [facility] Adult Primary Care - [address] [phone] Carrington Calderon MD [address] [phone] 02/27/2024 8:30 EDT Telemedicine [facility] Sleep Program - [address] [phone] Dwight Colbert [address] [place] [address] [phone] 02/29/2024 10:30 EDT Appointment [facility] Radiology Nuclear Medicine and [address] [phone] 02/29/2024 14:30 EDT Appointment [facility] Radiology Nuclear Medicine and [address] [phone] 03/01/2024 8:00 EDT Appointment [facility] Radiology Nuclear Medicine and PET [address] [phone] 03/01/2024 9:30 EDT Appointment [facility] Radiology Nuclear Medicine and PET [address] [address] documented as of this encounter Visit Diagnoses Not on filedocumented in this encounter Care Teams Director Asset Relationship Specialty Start Date End Date Carrington Calderon MD [address] [place] [phone] PCP - General Internal Medicine - Primary Care 12/09/20 documented as of this encounter
--- OUTSIDE RECORDS SUMMARY | 2024-02-06 13:33 | XMS_ITS | Encounter Summary ---
Author Organization [facility] Address [address] [place] [address] Care Team Providers Care Consulting Project Director Name Role Phone Carrington Calderon MD [...] Info) Description 02/21/2024 9:45 EDT Office Visit [facility] Adult Primary Care - [address] [phone] Carrington Calderon MD [address] [phone] 02/27/2024 8:30 EDT Telemedicine [facility] Sleep Program - [address] [phone] Dwight Colbert [address] [place] [phone] 02/29/2024 10:30 EDT Appointment [facility] Radiology Nuclear Medicine and PET - [address] [address] 02/29/2024 14:30 ED[facility] Radiology Nuclear Medicine and PET - [address] [address] 03/01/2024 8:00 EDT [facility] Rad[facility] Nuclear Medicine and PET - [address] [address] 03/01/2024 9:30 EDT Appointment [facility] Radiology Nuclear Medicine and PET - [address] [address] documented as of this encounter Visit Diagnoses Not on filedocumented in this encounter Care Teams Consulting Project Director Relationship Specialty Start Date End Date Carrington Calderon MD [address] [facility] 1 [place] [address] PCP - General Internal Medicine - Primary Care 12/09/20 documented as of this encounter
--- OUTSIDE RECORDS SUMMARY | 2024-02-06 13:33 | XMS_ITS | Encounter Summary ---
Author Organization [facility] Address [address] [place] [address] Care Team Providers Care Assembler Engine Name Role Phone Carrington Calderon MD Primary Care Provi anders Reason for Visit * Reason Onset Date Comments No Show 09/28/2021 Encounter Details Date Type Department Care Team (Late st Contact Info) Description 09/28/2021 Telephone [facility] Adult Primary Care [address] [phone] Carrington Calderon MD 1 [facility] Level 1 [place] [phone] No Show Social History Tobacco [...] [facility] Adult Primary Care - [address] 645401 Carrington Calderon MD [address] [phone] 02/27/2024 8:30 EDT Telemedicine [facility] Sleep Program - [address] [phone] Colbert Dwight [address] [place] [address] [phone] 02/29/2024 10:30 EDT Appointment [facility] Radiology Nuclear Medicine and PET [address] 174731 02/29/2024 14:30 EDT Appointment [facility] Radiology Nuclear Medicine and PET [address] 056901 03/01/2024 8:00 EDT Appointment [facility] Radiology Nuclear Medicine and PET [address] [phone] 03/01/2024 9:30 EDT Appointment [facility] Radiology Nuclear Medicine and PET [address] [phone] documented as of this encounter Visit Diagnoses Not on filedocumented in this encounter Care Teams Assembler Engine Relationship Specialty Start Date End Date Carrington Calderon MD [address] [phone] PCP - General Internal Medicine - Primary Care 12/09/20 documented as of this encounter
--- OUTSIDE RECORDS SUMMARY | 2024-02-06 13:33 | XMS_ITS | Encounter Summary ---
Author Organization [facility] Address [address] [place] [address] Care Team Providers Care Claims Adjustor Name Role Phone Carrington Calderon MD Primary Care Provi anders Reason for Visit * Reason Onset Date Comments Heartburn 01/26/2021 Encounter Details Date Type Department Care Team (Late st Contact Info) Description 01/26/[address] [facility] Adult Primary Care - [place] 1 [place], [place] [phone] Carrington Calderon MD 1 [facility] Level 1 [place] [phone] Heartburn Social History Tobacco Use [...] Encounter - Eryn Navarrete RN - 01/26/2021 4483 EDT Spoke with patient and reviewed She [...] already taking any heartburn medications? Could do [id number] daily if not. * Telephone Encounter - [...] [facility] Adult Primary Care - [address] [phone] Carrington Calderon MD 1 [facility] 1 [place] [phone] 02/27/2024 8:[address] [facility] Sleep Program - [address] [phone] Dwight Colbert [address] [place] [address] [phone] 02/29/2024 10:30 EDT Appointment [facility] Radiology Nuclear Medicine and PET - [address] [phone] 02/29/2024 14:30 EDT [facility] Radiology Nuclear Medicine and PET - [address] [address] 03/01/2024 8:00 EDT [facility] Radiology Nuclear Medicine and PET - [address] [address] 03/01/2024 9:30 EDT Appointment [facility] Radiology Nuclear Medicine and PET - [address] [address] documented as of this encounter Visit Diagnoses Not on filedocumented in this encounter Care Teams Claims Adjustor Relationship Specialty Start Date End Date Carrington Calderon MD 1 [facility] 1 [place] [phone] PCP - General Internal Medicine - Primary Care 12/09/20 documented as of this encounter
--- OUTSIDE RECORDS SUMMARY | 2024-02-06 13:33 | XMS_ITS | Encounter Summary ---
Author Organization [facility] Address [address] [place] [address] Care Team Providers Care Fur Feeder Name Role Phone Carrington Calderon MD Primary Care Provi anders Abigail Díaz Unavailable Carmelo Hendrickson Unavailable Unavailable Abigail Díaz Unavailable [phone] Reason for Visit * Reason Onset Date Comments Medications Refill 12/31/2020 Encounter Details Date Type Department Care Team (Late st Contact Info) Description 12/31/2020 Refill [facility] Adult Primary Care - [address] [phone] Carrington Calderon MD 1 [facility] Level 1 [place] [phone] Medications Refill Social History Tobacco Use Types [...] encounter Miscellaneous Notes * Telephone Encounter - PilarRosalina - 12/31/2020 1038 EDT Medication(s) Requested: LORazepam [...] [facility] [place] Adult Primary Care - [address] [phone] Carrington Calderon MD [address] [phone] 02/27/2024 8:30 EDT Telemedicine [facility] Sleep Program - [address] [phone] Dwight Colbert [address] [place] [address] [phone] 02/29/2024 10:30 EDT [facility] Radiology Nuclear Medicine and PET - [address] 253991 02/29/2024 14:30 EDT [facility] Radiology Nuclear Medicine and PET - [address] 093841 03/01/2024 8:00 EDT [facility] Radiology Nuclear Medicine and PET - [address] 406681 03/01/2024 9:30 EDT Appointment [facility] Radiology Nuclear Medicine and PET - [address] 480641 documented as of this encounter Visit Diagnoses Not on filedocumented in this encounter Discontinued Medications Medication Sig Discontinue Reason Start Date End Da te LORazepam (ATIVAN) 0.5 mg tablet Take 1 Tablet by mouth 3 times daily as needed for up to 14 days for Anxiety. Daily Max: 1.5 mg Reorder 12/05/2020 12/31/2020 documented as of this encounter Care Teams Fur Feeder Relationship Specialty Start Date End Date Carrington Calderon MD 1 [facility] 1 [place] [phone] PCP - General Internal Medicine - Primary Care 12/09/20 Abigail Díaz Labor Relations Supervisor 04/21/23 01/03/24 Carmelo Hendrickson Coordinator 12/01/23 Abigail Díaz Labor Relations Supervisor 01/04/24 documented as of this encounter
--- OUTSIDE RECORDS SUMMARY | 2024-02-06 13:33 | XMS_ITS | Encounter Summary ---
Author Organization [facility] Address [address] [place] [address] Care Team Providers Care Cut Roll Machine Operator Name Role Phone Carrington Calderon MD Primary Care Provi anders Reason for Visit * Reason Onset Date Comments Medications Refill 06/17/2021 Encounter Details Date Type Department Care Team (Late st Contact Info) Description 06/17/2021 Telephone [facility] Adult Primary Care [address] [phone] Carrington Calderon MD 1 [facility] Level 1 [place] [phone] Medications Refill Social History Tobacco Use Types [...] her appointment. Medication(s) Requested: Tramadol Preferred Pharmacy: [facility] Is patient out of medication? Yes Last Refill Date: 11/04/2020 Last Visit Date with Ordering Provider: 06/11/2021 Next Non-Acute Visit Date Scheduled with Care Team: Yes. Karen Trujillo 06/17/2021 9:28 documented in this encounter Plan of Treatment Upcoming Encounters Date Type Department Care Team (Late st Contact Info) Description 02/21/2024 9:45 EDT Office Visit [facility] Adult Primary Care - [address] [phone] Carrington Calderon MD [address] [phone] 02/27/2024 8:30 EDT Telemedicine [facility] Sleep Program - [address] [phone] Dwight Colbert [address] [place] [phone] 02/29/2024 10:30 EDT Appointment [facility] Radiology Nuclear Medicine and PET - [address] 900021 02/29/2024 14:30 EDT Appointment [facility] Radiology Nuclear Medicine and PET - [address] 070521 03/01/2024 8:00 EDT Appointment [facility] Radiology Nuclear Medicine and PET - Main [address] 510961 03/01/2024 9:30 EDT Appointment [facility] Radiology Nuclear Medicine and PET - [address] [address] documented as of this encounter Visit Diagnoses Not on filedocumented in this encounter Discontinued Medications Medication Sig Discontinue Reason Start Date End Da te traMADol (ULTRAM) 50 mg tablet Take 1 Tab by mouth every 6 hours as needed for Pain. Daily Max: 200 mg Reorder 11/04/2020 06/17/2021 documented as of this encounter Care Teams Cut Roll Machine Operator Relationship Specialty Start Date End Date Carrington Calderon MD 1 [facility] 1 [place] [address] PCP - General Internal Medicine - Primary Care 12/09/20 documented as of this encounter
--- OUTSIDE RECORDS SUMMARY | 2024-02-06 13:33 | XMS_ITS | Encounter Summary ---
Author Organization [facility] Address [address] [place] [address] Care Team Providers Care Business Lawyer Name Role Phone Carrington Calderon MD Primary Care Provi anders Encounter Details Date Type Department Care Team (Late st Contact Info) Description 12/04/2021 Orders Only [facility] Adult Primary Care - [place] [address] [place], [place] [address] Carrington Calderon MD 1 [facility] Level 1 [place] [phone] Social History Tobacco Use Types [...] [facility] - [place] [address] [place], [place] [address] Carrington Calderon MD 1 [facility] Level 1 [place] [address] 02/27/2024 8:30 EDT Telemedicine [facility] Sleep Program - [address] [address] Dwight Colbert [address] [place] [address] 02/29/2024 10:30 EDT Appointment [facility] Radiology Nuclear Medicine and PET [address] [address] 02/29/2024 14:30 EDT Appointment [facility] Radiology Nuclear Medicine and PET [address] 177761 03/01/2024 8:00 EDT Appointment [facility] Radiology Nuclear Medicine and [address] 684251 03/01/2024 9:30 EDT Appointment [facility] Radiology [facility] and [address] [address] documented as of this encounter Visit Diagnoses Not on filedocumented in this encounter Discontinued Medications Medication Sig Discontinue Reason Start Date End Da te traMADol (ULTRAM) 50 mg tablet TAKE 1 TABLET BY MOUTH EVERY 6 HOURS NEEDED FOR PAIN - DAILY MAX 4 TABLETS (200MG) Reorder 10/30/2021 12/04/2021 documented as of this encounter Care Teams Business Lawyer Relationship Specialty Start Date End Date Carrington Calderon MD [address] [facility] 1 [place] [address] PCP - General Internal Medicine - Primary Care 12/09/20 documented as of this encounter
--- OUTSIDE RECORDS SUMMARY | 2024-02-06 13:33 | XMS_ITS | Encounter Summary ---
Author Organization [facility] Address [address] [place] [address] Care Team Providers Care Braille Operator Name Role Phone Carrington Calderon MD Primary Care Provi anders Abigail Díaz Unavailable [phone] Carmelo Hendrickson Unavailable Unavailable Abigail Díaz Unavailable [phone] Encounter Details Date Type Department Care Team (Late st Contact Info) Description 01/26/2022 Orders Only [facility] Adult Primary Care - [address] [phone] Carrington Calderon MD 1 [facility] Level 1 [place] [address] Type 2 diabetes mellitus with diabetic polyneuropathy, with long-term current use of insulin ([facility]) ([facility]) (Primary Dx) Social History Tobacco Use [...] Visit [facility] Adult Primary Care - [address] 563631 Carrington Calderon MD [address] [phone] 02/27/2024 8:30 EDT Telemedicine [facility] Sleep Program - [address] [phone] Dwight Colbert [address] [place] [phone] 02/29/2024 10:30 EDT Appointment [facility] Radiology Nuclear Medicine and PET [address] 252971 02/29/2024 14:30 EDT Appointment [facility] Radiology Nuclear Medicine and PET [address] [phone] 03/01/2024 8:00 EDT Appointment [facility] Radiology Nuclear Medicine and PET - [address] [address] 03/01/2024 9:30 EDT Appointment [facility] Radiology Nuclear Medicine and PET [address] [address] documented as of this encounter Visit Diagnoses Diagnosis Type 2 diabetes mellitus with diabetic polyneuropathy, with long-term current use of insulin ([facility])- Primary documented in this encounter Care Teams Braille Operator Relationship Specialty Start Date End Date Carrington Calderon MD 1 [facility] 1 [place] [phone] PCP - General Internal Medicine - Primary Care 12/09/20 Abigail Díaz Dormitory Keeper 04/21/23 01/03/24 Carmelo Hendrickson Coordinator 12/01/23 Abigail Díaz Dormitory Keeper 01/04/24 documented as of this encounter
--- OUTSIDE RECORDS SUMMARY | 2024-02-06 13:33 | XMS_ITS | Encounter Summary ---
Author Organization [facility] Address [address] [place] [address] Care Team Providers Care Liquified Natural Gas Specialist Name Role Phone Carrington Calderon MD [...] 20:55 EDT - 01/26/2021 1:16 EDT Emergency [facility] Emergency Department - [address] [phone] Mark Thibodeaux PA-C [address] [place] [phone] Siobhan Hare PA-C [address] [place] [phone] Non-intractable vomiting with nausea, unspecified vomiting [...] through Care Everywhere. * Nausea and Vomiting (Czech) documented in this encounter Medications at Time [...] VIGNESH 2 READER) misc 1 Device by [facility] (non-drug; combo route) route continuous. 1 Each 10/01/2020 05/21/2022 flash glucose sensor (FREESTYLE VIGNESH 2 SENSOR) kit 1 Device by [facility] (non-drug; combo route) route continuous. 6 Kit [...] long-term current use of insulin ([facility]) Use 1 pen needle as directed [...] or Self Prison documented in this encounter ED Notes * [...] Visit [facility] Adult Primary Care - [address] [address]01 Carrington Calderon MD [address] [phone] 02/27/2024 8:30 EDT Telemedicine [facility] Sleep Program - [address] [address] Dwight Colbert [address] [place] [address]57231 02/29/2024 10:30 EDT Appointment [facility] Radiology Nuclear Medicine and PET - [address] [phone] 02/29/2024 14:30 EDT Appointment [facility] Radiology Nuclear Medicine and PET - [address] 321781 03/01/2024 8:00 EDT Appointment [facility] Radiology Nuclear Medicine and PET - [address] 213161 03/01/2024 9:30 EDT Appointment [facility] Radiology Nuclear Medicine and PET - [address] [address] documented as of this encounter Procedures Procedure [...] EDT) 02/17/2021 18:1 8 EDT Scan [address] [place] PROCEDURE/MINOR BRAULIO GICAL ORDERABLES * (ABNORMAL) POCT URINE DIPSTICK, CLINITEK (01/26/2021 0:21 EDT) Color, UA Yellow Yellow 01/26/2021 0:23 EDT [facility] Clarity, UA Clear Clear 01/26/2021 0:23 EDT [facility] Glucose, UA 2+(A) Negative mg/dL 01/26/2021 0:23 T [facility] Bilirubin, UA Negative Negative 01/26/2021 0:23 T [facility] Ketones, UA 4+(AA) Negative mg/dL 01/26/2021 0:23 EDT [facility] Specific [place], Urine >=1.030 1.001 - 1.035 01/26/2021 0:23 EDT [facility] Blood, UA Negative Negative 01/26/2021 0:23 [facility] pH, UA 6.0 <=8 01/26/2021 0:23 [facility] Protein, UA Negative Negative mg/dL 01/26/2021 0:23 [facility] Urobilinogen, UA 0.2 0.2 - 1.0 EU/dL 01/26/2021 0:23 [facility] Nitrite, UA Negative Negative 01/26/2021 0:23 [facility] Leuk Esterase Negative Negative 01/26/2021 0:23 [facility] HN LAB COMMENT (CLINITEK, UR) Test performed at Emergency Department 01/26/2021 0:23 [facility] Urine URINE SPECIMEN COLLECTION, CLEAN CATCH / Unknown 01/26/2021 0:21 EDT 01/26/2021 0:23 EDT Mark Thibodeaux PA-C POINT OF CARE TEST O RDERABLES [facility] [address] [place] [address] * POCT TEST, CLINITEK (01/26/2021 0:16 EDT) UPT Result Negative Negative 01/26/2021 0:23 EDT [facility] HN LAB COMMENT (CLINITEK, UPT) Test performed at Emergency Department 01/26/2021 0:23 EDT [facility] Comment:False negative resul ts may occur in women who are beyond 5-8 weeks gestation. Diagnosis of should be based on a correlation of test results with typical clinical signs and symptoms. Urine URINE SPECIMEN COLLECTION, CLEAN CATCH / Unknown 01/26/2021 0:16 EDT 01/26/2021 0:23 EDT Mark Thibodeaux PA-C POINT OF CARE TEST O RDERABLES Performing Organization Address [facility] de Phone Number [facility] [address] [place] [phone] * POCT CSN BARCODE URINE PREG TEST (01/26/2021 0:01 EDT) Urine URINE SPECIMEN COLLECTION, CLEAN CATCH / Unknown Urine Collect / Unknown 01/26/2021 0:01 EDT 01/26/2021 0:01 EDT Mark Thibodeaux PA-C LAB INFO SERVICE AND SUPPORT & PHONE RESULT Performing Organization Address [facility] de Phone Number [facility] [address] [place] [address] * POCT CSN BARCODE URINE DIPSTICK (01/26/2021 0:01 EDT) Urine URINE SPECIMEN COLLECTION, CLEAN CATCH / Unknown Urine Collect / Unknown 01/26/2021 0:01 EDT 01/26/2021 0:01 EDT Mark Thibodeaux PA-C LAB INFO SERVICE AND SUPPORT & PHONE RESULT Performing Organization Address [facility] de Phone Number [facility] [address] [place] [address] * (ABNORMAL) BETA HYDROXYBUTYRATE (01/25/2021 21:55 EDT) Beta Hydroxybutyrate 2.2(H) <0.4 mmol/L 01/25/2021 22:23 EDT [facility] Blood VENOUS BLOOD / Unknown Venipuncture / Unknown 01/25/2021 21:55 EDT 01/25/2021 21:57 EDT Mark Thibodeaux PA-C CHEMISTRY & BLOOD GA S ORDERABLES Performing Organization Address City/[facility]/ZIP Co de Phone Number [facility] [address] [place] [address] * (ABNORMAL) BASIC METABOLIC PANEL (BMP) (01/25/2021 21:55 EDT) Sodium 139 136 - 145 mmol/L 01/25/2021 22:18 EDT [facility] Potassium 3.7 3.5 - 5.0 mEq/L 01/25/2021 22:18 EDT [facility] Chloride 103 96 - 110 mEq/L 01/25/2021 22:18 [facility] CO2 Total 22 22 - 32 mEq/L 01/25/2021 22:18 [facility] Glucose 246(H) 70 - 100 mg/dL 01/25/2021 22:18 [facility] Calcium 8.8 8.5 - 10.5 mg/dL 01/25/2021 22:18 [facility] Calculated Calcium 8.9 8.5 - 10.5 mg/dL 01/25/2021 22:18 [facility] BUN 11 10 - 26 mg/dL 01/25/2021 22:18 [facility] Creatinine 0.48(L) 0.52 - 1.04 mg/dL 01/25/2021 22:18 [facility] eGFR 127 >60 mL/min/1.7 3m2 01/25/2021 22:18 [facility] Comment:eGFR calculated gil curtis CKD-EPI equation for non- Americans. Multiply eGFR by 1.16 for patients. Blood VENOUS BLOOD / Unknown Venipuncture / Unknown 01/25/2021 21:55 EDT 01/25/2021 21:57 EDT Mark Thibodeaux PA-C CHEMISTRY & BLOOD VA S ORDERABLES Performing Organization Address City/[facility]/ZIP Co de Phone Number [facility] [address] [place] [address] * EKG 12-LEAD (01/25/2021 21:12 EDT) 01/25/2021 21:1 2 EDT [facility] EKG - 02/17/2021 18:13 EDT ?[facility] Emergency ? Test Date: ?2021-01-25 Pat Name: ? CRISTY LUO ?Department: ?? ED ? Room: ? WB05 Gender: ? Female ? Wet Pan Operator: ?? : ?1985 ? Requested By: ANA Forman Order Number: [id number] ? Reading MD: ?? AGA JOHNGLIN MD ? Measurements Intervals ?[place] ? Rate: ? 66 ? P: ?74 MN: ? 136 ?QRS: ?5 QRSD: ? 98 [...] Note Aga Fairchild MD - 02/17/2021 [facility] Emergency Test Date: 2021-01-25 Pat Name: CRISTY LUO Department: ED Room: [facility] Gender: Female Wet Pan Operator: : 1985 Requested By: ANA Forman Order Number: [id number] Sammie MD: AGA FAIRCHILD MD Measurements Intervals [place] Rate: 66 P: 74 MN: 136 QRS: 5 QRSD: 98 T: -4 [...] Mark Thibodeaux PA-C CARDIAC ECG ORDERABL ES [facility] EKG documented in this encounter [...] STAT 2200 (Given - Provider: Mignon Young, MRACELO) lactated ringers BOLUS 1,000 mL (COMPLETED) 1,000 [...] 01/25 documented in this encounter Care Teams Liquified Natural Gas Specialist Relationship Specialty Start Date End Date Carrington Calderon MD [address] [facility] 1 [place] [phone] PCP - General Internal Medicine - Primary Care 12/09/20 documented as of this encounter
--- OUTSIDE RECORDS SUMMARY | 2024-02-06 13:33 | XMS_ITS | Encounter Summary ---
Author Organization [facility] Address [address] [place] [address] Care Team Providers Care Manager Hotel Name Role Phone Carrington Calderon MD Primary Care Provi anders Reason for Visit * Reason Comments Other Encounter Details Date Type Department Care Team (Late st Contact Info) Description 07/09/2021 [facility] Adult Primary Care [facility] 1 [place], [place] [address] Carrington Calderon MD 1 [facility] Level 1 [place] [address] Other Social History Tobacco Use [...] Mahan - 07/10/2021 1226 EST Sydnee from [facility] pharmacy calling to requestion some information. 1)She would like to know the associated diagnosis with the tramadol for their records. 2)She is also wondering if provider is aware she is taking tramadol and lorazepam. * Telephone Encounter - Jesi Love RN - 07/10/2021 1122 EST Medication(s) Requested: tramadol Preferred Pharmacy: [facility] Is patient out of medication? Unknown [...] [facility] - [address] [phone] Carrington Calderon MD [address] [phone] 02/27/2024 8:30 EDT Telemedicine [facility] Sleep Program - [address] [address]86131 Dwight Colbert [address] [place] [address] [phone] 02/29/2024 10:[address] [facility] Radiology Nuclear Medicine and PET - [address] [phone] 02/29/2024 14:[address] [facility] Radiology Nuclear Medicine and PET - [address] [phone] 03/01/2024 8:00 EDT Appointment [facility] Radiology Nuclear Medicine and PET - [address] [address] 03/01/2024 9:30 EDT Appointment [facility] Radiology Nuclear Medicine and PET [address] [address] documented as of this encounter Visit Diagnoses Not on filedocumented in this encounter Discontinued Medications Medication Sig Discontinue Reason Start Date End Da te traMADol (ULTRAM) 50 mg tablet Take 1 Tablet by mouth every 6 hours as needed for Pain. Daily Max: 200 mg 06/17/2021 07/10/2021 documented as of this encounter Care Teams Manager Hotel Relationship Specialty Start Date End Date Carrington Calderon MD 1 [facility] 1 [place] [address] PCP - General Internal Medicine - Primary Care 12/09/20 documented as of this encounter
--- OUTSIDE RECORDS SUMMARY | 2024-02-06 13:33 | XMS_ITS | Encounter Summary ---
Author Organization [facility] Address [address] [place] [address] Care Team Providers Care Centerless Grinder Set Up Operator Name Role Phone Carrington Calderon MD Primary Care Provi anders Reason for Visit * Reason Comments Medication Management Encounter Details Date Type Department Care Team (Late st Contact Info) Description 06/11/2021 9:45 EST Office Visit [facility] Adult Primary Care - [place] 1 [place], [place] [address] Carrington Calderon MD 1 [facility] Level 1 [place] [phone] Type 2 diabetes mellitus with hyperosmolarity without coma, with long-term current use of insulin ([facility]) ([facility]) (Primary Dx); Anxiety; Chronic midline low back pain without sciatica; Anxiety and depression; Gastroparesis; Diabetic polyneuropathy associated with type 2 diabetes mellitus ([facility]) (HCC); Mid back pain Social History [...] emergency department For the diabetes -Down the CloudVolumese rena -If you have trouble using this [...] with long-term current use of insulin (HCC-CMS) ([facility]): By description, it sounds like glucose is responding well to the changes that were made last year. However, she does not have her freestyle mitul readings available today, and we do not have a recent A1c. I recommended getting an A1c as soon as she is able. I have sent an order to [place]. - HEMOGLOBIN A1C Anxiety: Continue lorazepam for [...] of the lumbar spine. Order sent to [place]. - XR LUMBAR SPINE 2-3 VIEWS Anxiety [...] associated with type 2 diabetes mellitus (HCC-CMS) ([facility]): Symptoms persist.Continue gabapentin. - gabapentin [...] was seen in the emergency department in [place] for recurrence ofintractable nausea and vomiting with [...] Info) Description 02/21/2024 9:45 EDT Office Visit [facility] Adult Primary Care - [address] [phone] Carrington Calderon MD [address] [phone] 02/27/2024 8:30 EDT Telemedicine [facility] Sleep Program - [address] [phone] Dwight Colbert [address] [place] [address] [phone] 02/29/2024 10:30 EDT Appointment [facility] Radiology Nuclear Medicine and PET - [address] [phone] 02/29/2024 14:30 EDT Appointment [facility] Radiology Nuclear Medicine and PET [address] 516881 03/01/2024 8:00 EDT Appointment [facility] Radiology Nuclear Medicine and PET - [address] 577531 03/01/2024 9:30 EDT Appointment [facility] Radiology Nuclear Medicine and PET [address] [address] documented as of this encounter Visit Diagnoses Diagnosis Type 2 diabetes mellitus with hyperosmolarity without coma, with long-term current use of insulin ([facility])- Primary Anxiety Anxiety state, unspecified Chronic midline low back pain without sciatica Anxiety and depression Dysthymic disorder Gastroparesis Diabetic polyneuropathy associated with type 2 diabetes mellitus ([facility]) Mid back pain Backache, unspecified documented [...] 06/11/2021 added in this encounter Care Teams Centerless Grinder Set Up Operator Relationship Specialty Start Date End Date Carrington Calderon MD 1 [facility] Level 1 [place] [address] PCP - General Internal Medicine - Primary Care 12/09/20 documented as of this encounter
--- OUTSIDE RECORDS SUMMARY | 2024-02-06 13:33 | XMS_ITS | Encounter Summary ---
Author Organization [facility] Address [address] [place] [address] Care Team Providers Care Nurse Name Role Phone Carrington Calderon MD Primary Care Provi anders Reason for Visit * Reason Comments Skin Ulcer * Consult (Routine) - Authorization Not Required Specialty Diagnoses / Procedures Referred By Kit goode Referred To Contact Orthopedic Surgery Diagnoses Diabetic ulcer of right great toe (HCC-CMS) Katiana Adams NP [address] [place] [address] Elza Navarro DPM [address] [place] [phone] Referral ID Status Reason Start Date Expiration Date Visits Requested Visits Authorized [id number] Authorization Not Required 1 1 Encounter Details Date Type Department Care Team (Late Contact Info) Description 09/17/2021 15:00 EDT Office Visit [facility] Foot & Ankle Program - [address] [place] [address] Fadi Barahona NP [address] [place] [address] Neuropathic diabetic ulcer of foot [...] ICD-9-CM 1. Neuropathic diabetic ulcer of foot ([facility]) E11.40 250.60 OFFLOADING SURGICAL SHOE (L3260) E11.621 250.80 L97.509 357.2 707.15 right great toe 2. Type 2 diabetes mellitus with diabetic polyneuropathy, with long-term current use of insulin ([facility]) ([facility]) E11.42 250.60 OFFLOADING SURGICAL SHOE [...] the next morning they went to the [facility] in [place], [place] where she was prescribed antibiotics. She [...] managed by Mary Zafar NP, at the [facility] but, ever since Mary retired, [...] 2020 after an ulcer got infected. Work: [id number] Foot & Ankle Pain Assessment: Pain Orientation : Right Pain Location: Toe (GRT) Numeric Pain Level (Scale 1-10): 0 Pain in another site? : No Past medical history, medications and allergies were noted in [facility]. The patient did not fill out the intake form Patient Active Problem List Diagnosis Date Noted ??? Neuropathic diabetic ulcer of foot ([facility]) 09/17/2021 ??? Chronic midline low back pain without sciatica 11/26/2019 ??? Chronic left ear pain 09/04/2015 ??? Gastroparesis 08/10/2020 ??? Type 2 diabetes mellitus with diabetic polyneuropathy, with long-term current use of insulin ([facility]) ([facility]) 06/05/2020 ??? Family history of [...] referral for therapy. ??? Diabetes ([facility]) A1c 10.3 on 11/28/2019 - poorly controlled ??? Diabetes mellitus, type 2 ([facility]) pt check blood sugars at [...] Neuropathic diabetic ulcer of foot ([facility]) 09/17/2021 ??? Obesity, unspecified ??? Osteomyelitis ([facility]) of left great toe-s/p amputation [...] use of insulin ([facility]) ([facility]) OFFLOADING SURGICAL SHOE (L3260) Other [...] with speech recognition software or keyboard database design analyst techniques. Minor irregularities or keyboarding misprints may be present documented in this encounter Plan of Treatment Upcoming Encounters Date Type Department Care Team (Late st Contact Info) Description 02/21/2024 9:45 EDT Office Visit [facility] Adult Primary Care - [address] 813691 Carrington Calderon MD [address] [phone] 02/27/2024 8:30 EDT Telemedicine [facility] Sleep Program - [address] 196081 Dwight Colbert [address] [place] [address] 02/29/2024 10:30 EDT Appointment [facility] Radiology Nuclear Medicine and [address] [phone] 02/29/2024 14:30 EDT Appointment [facility] Radiology Nuclear Medicine and [address] [phone] 03/01/2024 8:00 EDT Appointment [facility] Radiology Nuclear Medicine and PET [address] [phone] 03/01/2024 9:30 EDT Appointment [facility] Radiology Nuclear Medicine and PET [address] [phone] documented as of this encounter Visit Diagnoses [...] 22 documented in this encounter Care Teams Nurse Relationship Specialty Start Date End Date Carrington Calderon MD 1 [facility] 1 [place] [phone] PCP - General Internal Medicine - Primary Care 12/09/20 documented as of this encounter
--- OUTSIDE RECORDS SUMMARY | 2024-02-06 13:33 | XMS_ITS | Encounter Summary ---
Author Organization [facility] Address [address] [place] [address] Care Team Providers Care Financial Management Consultant Name Role Phone Carrington Calderon MD Primary Care Provi anders Reason for Visit * Reason Comments Other Encounter Details Date Type Department Care Team (Late st Contact Info) Description 09/13/2021 [facility] Adult Primary Care [facility] 1 [place], [place] [address]64[address] Carrington Calderon MD 1 [facility] Level 1 [place] [address] Other Social History Tobacco Use [...] Encounter - Eryn Pack RN - 09/14/2021 0933 EDT traMADol (ULTRAM) 50 mg tablet [[id number]] ?? Order Details Dose, Route, Frequency: As [facility] - [address] 868571 Carrington Calderon MD [address] [phone] 02/27/2024 8:30 EDT Telemedicine [facility] Sleep Program - [address] 504201 Dwight Colbert [address] [place] [address] [phone] 02/29/2024 10:30 EDT Appointment [facility] Radiology Nuclear Medicine and PET [address] [phone] 02/29/2024 14:30 EDT Appointment [facility] Radiology Nuclear Medicine and PET [address] [phone] 03/01/2024 8:00 EDT Appointment [facility] Radiology Nuclear Medicine and PET [address] [phone] 03/01/2024 9:30 EDT Appointment [facility] Radiology Nuclear Medicine and PET [address] [phone] documented as of this encounter Visit Diagnoses Not on filedocumented in this encounter Discontinued Medications Medication Sig Discontinue Reason Start Date End Da te traMADol (ULTRAM) 50 mg tablet TAKE 1 TABLET BY MOUTH EVERY 6 HOURS NEEDED FOR PAIN, DAILY MAX: 200MG 08/25/2021 09/20/2021 documented as of this encounter Care Teams Financial Management Consultant Relationship Specialty Start Date End Date Carrington Calderon MD 1 [facility] Level 1 [place] [phone] PCP - General Internal Medicine - Primary Care 12/09/20 documented as of this encounter
--- OUTSIDE RECORDS SUMMARY | 2024-02-06 13:33 | XMS_ITS | Encounter Summary ---
Author Organization [facility] Address [address] [place] [address] Care Team Providers Care Photoengraving Printer Name Role Phone Carrington Calderon MD Primary Care Provi anders Encounter Details Date Type Department Care Team (Late st Contact Info) Description 02/12/2021 Orders Only [facility] Adult Primary [facility] - [place] 1 [place], [place] [address] Carrington Calderon MD 1 [facility] Level 1 [place] [address] Osteomyelitis of great toe of [...] Visit [facility] Adult Primary Care - [address] 486851 Carrington Calderon MD 1 [facility] Level 1 [place] [address] 02/27/2024 8:30 EDT Telemedicine [facility] Sleep Program - [address] [address] Dwight Colbert [address] [place] [address] 02/29/2024 10:30 EDT Appointment [facility] Radiology Nuclear Medicine and PET - [address] [address] 02/29/2024 14:30 EDT Appointment [facility] Radiology Nuclear Medicine and PET - [address] [address] 03/01/2024 8:00 EDT Appointment [facility] Radiology Nuclear Medicine and PET [address] 154251 03/01/2024 9:30 EDT Appointment [facility] Radiology Nuclear Medicine and PET [address] [address] documented as of this encounter Visit Diagnoses Diagnosis Osteomyelitis of great toe of left foot (HCC-CMS)- Primary documented in this encounter Care Teams Photoengraving Printer Relationship Specialty Start Date End Date Carrington Calderon MD [address] [place] [phone] PCP - General Internal Medicine - Primary Care 12/09/20 documented as of this encounter
--- OUTSIDE RECORDS SUMMARY | 2024-02-06 13:33 | XMS_ITS | Encounter Summary ---
Author Organization [facility] Address [address] [place] [address] Care Team Providers Care Printing Manager Name Role Phone Carrington Calderon MD Primary Care Provi anders Reason for Visit * Reason Onset Date Comments Emesis 11/16/2021 24 hours- vomitt ing/ toe infection Encounter Details Date Type Department Care Team (Late st Contact Info) Description 11/16/2021 Telephone [facility] Adult Primary Care - [address] [phone] Carrington Calderon MD 1 [facility] Level 1 [place] [address] Emesis (24 hours- vomitting/ toe [...] EDT OK. Thanks. * Telephone Encounter - Jackei Madsen RN - 11/16/2021 1339 EDT Spoke with Fermin, he reports pt has not improved and he is going home to take her to the [facility] ED. Let him know that PCP's last OV note stated that pt should be seen in an OV if vomiting for more than 24 hours. He reports they would like a referral to the foot Dr, normally goes to [facility]. (Looks like pt missed OV.)They [...] last seen 06/11/21. Also missed OV at [facility]. * Telephone Encounter - [facility] [address] 280431 Carrington Calderon MD [address] [place] [address] 1 [place] [phone] 02/27/2024 8:30 EDT Telemedicine [facility] Sleep Program - [address] 728891 Dwight Colbert [address] [place], [place] [address] 02/29/2024 10:30 EDT Appointment [facility] Radiology Nuclear Medicine and PET - [address] 974881 02/29/2024 14:30 EDT Appointment [facility] Radiology Nuclear Medicine and PET - [address] 992121 03/01/2024 8:00 EDT Appointment [facility] Radiology Nuclear Medicine and PET - [address] [id number] 03/01/2024 9:30 EDT Appointment [facility] Radiology Nuclear Medicine and PET [address] 166511 documented as of this encounter Visit Diagnoses Not on filedocumented in this encounter Care Teams Printing Manager Relationship Specialty Start Date End Date Carrington Calderon MD 1 [facility] Level 1 [place] [address] PCP - General Internal Medicine - Primary Care 12/09/20 documented as of this encounter
--- OUTSIDE RECORDS SUMMARY | 2024-02-06 13:33 | XMS_ITS | Encounter Summary ---
Author Organization [facility] Address [address] [place] [address] Care Team Providers Care Physical Optics Teacher Name Role Phone Carrington Calderon MD Primary Care Provi anders Reason for Visit * Reason Comments Medication Management Follow-up Encounter Details Date Type Department Care Team (Late st Contact Info) Description 01/29/2022 11:00 EDT Telemedicine [facility] Adult Primary Care - [address] [phone] Carrington Calderon MD 1 [facility] Level 1 [place] [phone] Gastroparesis (Primary Dx); Tobacco use; Type 2 diabetes mellitus with diabetic polyneuropathy, with long-term current use of insulin ([facility]) ([facility]); Chronic midline low back pain without sciatica; [...] Never 01/13/2022 How often does anyone, inclnick chivo family, [...] with long-term current use of insulin ([facility]) Inject 1 Kit into the skin every 14 days. 6 Kit 3 01/29/2022 05/21/2022 documented in this encounter Progress Notes * Latreille, Carrington Wiley, MD - 01/29/2022 1100 EDT Primary Care [...] with long-term current use of insulin ([facility]) ([facility]): Diabetes remains uncontrolled per her most recent A1C of 9.7. According to her description, I am concerned that an increase in her Lantus dose could lead to dangerous hypoglycemia. I asked that she post her freestyle mitul data on [employer] for my review. She states that she [...] system when she attempted to go at [facility]. I have asked my staff to follow-up [...] symptoms. She was seen in September in [facility] emergency department for diabetic foot infection. She [...] was infected. She was referred to a briquette operator up in the [facility] and was treated with topical and oral [...] [facility] Adult Primary Care - [address] 046191 Carrington Calderon MD [address] [phone] 02/27/2024 8:30 EDT Telemedicine [facility] Sleep Program - [address] 676211 Dwight Colbert [address] [place] [address]841 02/29/2024 10:30 EDT Appointment [facility] Radiology Nuclear Medicine and PET [address] [phone] 02/29/2024 14:30 EDT Appointment [facility] Radiology Nuclear Medicine and PET [address] [phone] 03/01/2024 8:00 EDT Appointment [facility] Radiology Nuclear Medicine and PET - [address] [phone] 03/01/2024 9:30 EDT Appointment [facility] Radiology Nuclear Medicine and PET [address] [phone] documented as of this encounter Visit Diagnoses Diagnosis Gastroparesis- Primary Tobacco use Tobacco use disorder Type 2 diabetes mellitus with diabetic polyneuropathy, with long-term current use of insulin ([facility]) Chronic midline low back pain without sciatica [...] as of this encounter Care Teams Physical Optics Teacher Relationship Specialty Start Date End Date Carrington Calderon MD 1 [facility] Level 1 [place] [address] PCP - General Internal Medicine - Primary Care 12/09/20 documented as of this encounter
--- OUTSIDE RECORDS SUMMARY | 2024-02-06 13:33 | XMS_ITS | Encounter Summary ---
Author Organization [facility] Address [address] [place] [address] Care Team Providers Care Training Representative Name Role Phone Carrington Calderon MD Primary Care Provi anders Reason for Visit * Reason Comments Medications Refill Diabetes Encounter Details Date Type Department Care Team (Late st Contact Info) Description 03/27/2021 13:30 EDT Office Visit [facility] Adult Primary Care - [place] 1 [place], [place] [address] Avelino Dowling MD Diabetes 1.5, managed as type 2 (HCC) [...] Avelino Dowling MD - 03/27/2021 1330 EDT [facility] DEPARTMENT OF INTERNAL MEDICINE [facility] DATE: 03/27/2021 PATIENT NAME: Cristy Luo AGE: [...] without sciatica ??? Diabetic foot infection (HCC-CMS) (HCC) ??? Diabetic foot ulcer (HCC-CMS) (HCC) ??? Diabetic foot ulcer associated with diabetes mellitus due to underlying condition (HCC-CMS) (HCC) ??? Osteomyelitis of great toe of left foot (HCC-CMS) (HCC) ??? 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 (HCC-CMS) (HCC) ??? Osteomyelitis of toe of left foot (HCC) ??? Type 2 diabetes mellitus with diabetic polyneuropathy, with long-term current use of insulin (HCC-CMS) ([facility]) ??? Hx of ectopic ??? Admission for sterilization ??? Gastroparesis ??? Intractable vomiting ??? Vomiting Medications Prior to Today's Visit Medication Sig ??? acetaminophen (TYLENOL) 325 mg tablet Take 2 Tabs by mouth every 4 hours as needed for Pain. ??? blood glucose meter One Touch Verio Flex meter. ??? blood glucose test strips Brand: panpanStyle Precision Cristo, use as directed if Freestyle [...] misc (non- drug; combo route) route continuous. ??? [...] Brandon Dowling MD Internal Medicine, PGY-1 Pager: *[phone] or cortex I spent a total of 50 minutes on the date of this encounter meeting with the patient and reviewing documentation/coordinating care as described in the above note. No procedures were performed at the time of the visit. * Catherine Liz MD - 03/27/2021 1330 EDT I have discussed and seen the [...] [facility] Adult Primary Care - [address] [phone] Carrington Calderon MD [address] [place] [address] 1 [place] [phone] 02/27/2024 8:30 EDT Telemedicine [facility] Sleep Program - [address] 270121 Dwight Colbert [address] [place], [place] [address]30[address] 02/29/2024 10:30 EDT Appointment [facility] Radiology Nuclear Medicine and PET - [address] [place] [address] [phone] 02/29/2024 14:30 EDT Appointment [facility] Radiology Nuclear Medicine and PET [address] [address] 03/01/2024 8:00 EDT Appointment [facility] Radiology Nuclear Medicine and PET [address] [phone] 03/01/2024 9:30 EDT Appointment [facility] Radiology Nuclear Medicine and PET [address] [phone] documented as of this encounter Visit Diagnoses Diagnosis Diabetes 1.5, managed as type 2 ([facility])- Primary Type II or unspecified type diabetes [...] 06/11/2021 added in this encounter Care Teams Training Representative Relationship Specialty Start Date End Date Carrington Calderon MD 1 [facility] Level 1 [place] [address] PCP - General Internal Medicine - Primary Care 12/09/20 documented as of this encounter
--- OUTSIDE RECORDS SUMMARY | 2024-02-06 13:33 | XMS_ITS | Encounter Summary ---
Author Organization [facility] Address [address] [place] [address] Care Team Providers Care Director Of Plant Operations Name Role Phone Carrington Calderon MD Primary Care Provi anders Abigail Díaz Unavailable [phone] Carmelo Hendrickson Unavailable Unavailable Abigail Díaz Unavailable [phone] Reason for Visit * Reason Onset Date Comments Appointment Related 04/06/2021 Appointment reminder Encounter Details Date Type Department Care Team (Late st Contact Info) Description 04/06/2021 Telephone [facility] General Surgery - [address] [phone] Britta Cox, BUGGY DRIVER 111 [facility], Level 5 [place] [address] Appointment Related (Appointment reminder ) [...] [facility] Adult Primary Care - [address] [phone] Carrington Calderon MD [address] [phone] 02/27/2024 8:30 EDT Telemedicine [facility] Sleep Program - [address] 812581 Dwight Colbert [address] [place] [address] [phone] 02/29/2024 10:30 EDT Appointment [facility] Radiology Nuclear Medicine and PET [address] [address] 02/29/2024 14:30 EDT Appointment [facility] Radiology Nuclear Medicine and PET [address] [phone] 03/01/2024 8:00 EDT Appointment [facility] Radiology Nuclear Medicine and PET [address] [phone] 03/01/2024 9:30 EDT Appointment [facility] Radiology Nuclear Medicine and PET [address] 219101 documented as of this encounter Visit Diagnoses Not on filedocumented in this encounter Care Teams Director Of Plant Operations Relationship Specialty Start Date End Date Carrington Calderon MD [address] [place] [phone] PCP - General Internal Medicine - Primary Care 12/09/20 Abigail Díaz Kitchenhand 04/21/23 01/03/24 Carmelo Hendrickson Coordinator 12/01/23 Abigail Díaz Kitchenhand 01/04/24 documented as of this encounter
--- OUTSIDE RECORDS SUMMARY | 2024-02-06 13:33 | XMS_ITS | Encounter Summary ---
Author Organization [facility] Address [address] [place] [address] Care Team Providers Care Suspender Cutter Name Role Phone Carrington Calderon MD Primary Care Provi anders Reason for Visit * Reason Comments Other Encounter Details Date Type Department Care Team (Late st Contact Info) Description 03/16/2021 [facility] Adult Primary Care [facility] 1 [place], [place] [address] Carrington Calderon MD 1 [facility] Level 1 [place] [address] Other Social History Tobacco Use [...] 02/21/2024 9:45 EDT Office Visit [facility] Adult Primary Care - [address] 735081 Carrington Calderon MD [address] [facility] 1 [place] [phone] 02/27/2024 8:30 EDT Telemedicine [facility] Sleep Program - [address] [address] Dwight Colbert [address] [place] [address]001 02/29/2024 10:30 ED[facility] Rad[facility] Nuclear Medicine and PET - [address] 836391 02/29/2024 14:30 EDT [facility] Radiology Nuclear Medicine and PET - [address] 126001 03/01/2024 8:[address] [facility] Radiology Nuclear Medicine and PET - [address] 766861 03/01/2024 9:30 EDT Appointment [facility] Radiology Nuclear Medicine and PET [address] [phone] documented as of this encounter Visit Diagnoses Not on filedocumented in this encounter Care Teams Suspender Cutter Relationship Specialty Start Date End Date Carrington Calderon MD [address] [facility] 1 [place] [address] PCP - General Internal Medicine - Primary Care 12/09/20 documented as of this encounter
--- OUTSIDE RECORDS SUMMARY | 2024-02-06 13:33 | XMS_ITS | Encounter Summary ---
Author Organization [facility] Address [address] [place] [address] Care Team Providers Care Rail Transit Operator Name Role Phone Carrington Calderon MD Primary Care Provi anders Reason for Visit * Reason Onset Date Comments Medications Refill 08/25/2021 Encounter Details Date Type Department Care Team (Late st Contact Info) Description 08/25/2021 Refill [facility] Adult Primary Care [address] 203571 Carrington Calderon MD 1 [facility] Level 1 [place] [phone] Medications Refill Social History Tobacco Use Types [...] Visit [facility] Adult Primary Care - [address] [phone] Carrington Calderon MD [address] [place] [phone] 02/27/2024 8:30 EDT Telemedicine [facility] Sleep Program - [address] 412121 Dwight Colbert [address] [place] [address] 387291 02/29/2024 10:[address] [facility] Radiology Nuclear Medicine and PET [address] 934111 02/29/2024 14:[address] [facility] Radiology Nuclear Medicine and PET [address] [phone] 03/01/2024 8:[address] [facility] Radiology Nuclear Medicine and PET - [address] [phone] 03/01/2024 9:[address] [facility] Radiology Nuclear Medicine and PET [address] [phone] documented as of this encounter Visit Diagnoses [...] documented as of this encounter Care Teams Rail Transit Operator Relationship Specialty Start Date End Date Carrington Calderon MD 1 [facility] 1 [place] [address] PCP - General Internal Medicine - Primary Care 12/09/20 documented as of this encounter
--- OUTSIDE RECORDS SUMMARY | 2024-02-06 13:33 | XMS_ITS | Encounter Summary ---
Author Organization [facility] Address [address] [place] [address] Care Team Providers Care Supervisor Concrete Block Plant Name Role Phone Carrington Calderon MD Primary Care Provi anders Reason for Visit * Reason Comments New Patient Visit Gastroparesis * Consult (Routine/Next Available) - Order Cancelled Specialty Diagnoses / Procedures Referred By Contact Referred To Contact Gastroenterology and Hepatology Diagnoses Gastroparesis Carrington Calderon MD [address] [place] [phone] [facility] [address] [place] [address] Referral ID Status Reason Start Date Expiration Date Visits Requested Visits Authorized [id number] Order Cancelled Specialty Services Required 06/11/2021 1 1 Encounter Details Date Type Department Care Team (Late st Contact Info) Description 10/09/2021 11:20 EDT Office Visit [facility] Gastroenterology - [facility] [address] [place], [place] [phone] Scott Arzate MD 111 [facility] 5 [place] [address] Gastroparesis (Primary Dx) Social History [...] [facility] Adult Primary Care - [address] 645501 Carrington Calderon MD [address] [phone] 02/27/2024 8:30 EDT Telemedicine [facility] Sleep Program - [address] 347201 Dwight Colbert [address] [place] [address] [phone] 02/29/2024 10:30 EDT Appointment [facility] Radiology Nuclear Medicine and PET - [address] [phone] 02/29/2024 14:30 EDT Appointment [facility] Radiology Nuclear Medicine and PET - [address] 525291 03/01/2024 8:00 EDT Appointment [facility] Radiology Nuclear Medicine and PET - [address] 791981 03/01/2024 9:30 EDT Appointment [facility] Radiology Nuclear Medicine and PET - [address] [address] documented as of this encounter Visit Diagnoses Diagnosis Gastroparesis- Primary documented in this encounter Care Teams Supervisor Concrete Block Plant Relationship Specialty Start Date End Date Carrington Calderon MD 1 [facility] 1 [place] [address] PCP - General Internal Medicine - Primary Care 12/09/20 documented as of this encounter
--- OUTSIDE RECORDS SUMMARY | 2024-02-06 13:33 | XMS_ITS | Encounter Summary ---
Author Organization [facility] Address [address] [place] [address] Care Team Providers Care Compliance Technician Name Role Phone Carrington Calderon MD Primary Care Provi anders Encounter Details Date Type Department Care Team (Late st Contact Info) Description 04/22/2021 Orders Only [facility] Adult Primary Care - [place] 1 [place], [place] [phone] Carrington Calderon MD 1 [facility] Level 1 [place] [address] Type 2 diabetes mellitus with [...] [facility] [address] 936641 Carrington Calderon MD [address] [place] [phone] 02/27/2024 8:30 EDT Telemedicine [facility] Sleep Program - [address] 880761 Dwight Colbert [address] [place] [address] [phone] 02/29/2024 10:30 EDT Appointment [facility] Radiology Nuclear Medicine and PET - [address] [phone] 02/29/2024 14:30 EDT Appointment [facility] Radiology Nuclear Medicine and PET [address] [phone] 03/01/2024 8:00 EDT Appointment [facility] Radiology Nuclear Medicine and PET [address] 424851 03/01/2024 9:30 EDT Appointment [facility] Radiology Nuclear Medicine and PET [address] [phone] documented as of this encounter Visit Diagnoses Diagnosis Type 2 diabetes mellitus with hyperosmolarity without coma, with long-term current use of insulin ([facility])- Primary Screening for hepatitis C declined Encounter for hepatitis C screening test for low risk patient documented in this encounter Care Teams Compliance Technician Relationship Specialty Start Date End Date Carrington Calderon MD [address] [place] [phone] PCP - General Internal Medicine - Primary Care 12/09/20 documented as of this encounter
--- OUTSIDE RECORDS SUMMARY | 2024-02-06 13:33 | XMS_ITS | Encounter Summary ---
Author Organization [facility] Address [address] [place] [address] Care Team Providers Care Portable Sawyer Name Role Phone Carrington Calderon MD Primary Care Provi anders Reason for Visit * Reason Onset Date Comments No Show 02/18/2021 Encounter Details Date Type Department Care Team (Late st Contact Info) Description 02/18/2021 Telephone [facility] Adult Primary Care - [address] 648991 Carrington Calderon MD 1 [facility] Level 1 [place] [address] No Show Social History Tobacco [...] [facility] Adult Primary Care - [address] [phone] Carrington Calderon MD [address] [place] [address] [phone] 02/27/2024 8:30 EDT Telemedicine [facility] Sleep Program - [address] 616681 Dwight Colbert [address] [place] [address] [phone] 02/29/2024 10:30 EDT Appointment [facility] Radiology Nuclear Medicine and PET - [address] 036811 02/29/2024 14:30 EDT Appointment [facility] Radiology Nuclear Medicine and PET [address] 467721 03/01/2024 8:00 EDT Appointment [facility] Radiology Nuclear Medicine and PET [address] [phone] 03/01/2024 9:30 EDT Appointment [facility] Radiology Nuclear Medicine and PET [address] 587581 documented as of this encounter Visit Diagnoses Not on filedocumented in this encounter Care Teams Portable Sawyer Relationship Specialty Start Date End Date Carrington Calderon MD [address] [place] [address] [phone] PCP - General Internal Medicine - Primary Care 12/09/20 documented as of this encounter
--- OUTSIDE RECORDS SUMMARY | 2024-02-06 13:33 | XMS_ITS | Encounter Summary ---
Author Organization [facility] Address [address] [place] [address] Care Team Providers Care Pin Drafting Machine Operator Name Role Phone Carrington Calderon MD Primary Care Provi anders Reason for Visit * Reason Onset Date Comments Medication Problem 01/14/2022 Encounter Details Date Type Department Care Team (Late st Contact Info) Description 01/14/2022 Telephone [facility] Adult Primary Care [facility] 1 [place], [place] 6[address] Carrington Calderon MD 1 [facility] Level 1 [place] [address] Medication Problem Social History Tobacco [...] code M54.50, G89.29. * Telephone Encounter - Kamiin Raya - 01/14/2022 1556 EDT [facility] Pharmacist-Deonna called in regards to prescription for Tramadol sent 01/12/2022. She needs a diagnosis code before they can fill script. documented in this encounter Plan of Treatment Upcoming Encounters Date Type Department Care Team (Late st Contact Info) Description 02/21/2024 9:45 EDT Office Visit [facility] Adult Primary Care - [address] 627331 Carrington Calderon MD [address] [phone] 02/27/2024 8:30 EDT Telemedicine [facility] Sleep Program - [address] 435151 Dwight Colbert [address] [place] [address] [phone] 02/29/2024 10:30 EDT Appointment [facility] Radiology Nuclear Medicine and PET - [address] 027211 02/29/2024 14:30 EDT Appointment [facility] Radiology Nuclear Medicine and PET - [address] [address] 03/01/2024 8:00 EDT Appointment [facility] Radiology Nuclear Medicine and PET [address] [address] 03/01/2024 9:30 EDT Appointment [facility] Radiology Nuclear Medicine and PET - [address] 655061 documented as of this encounter Visit Diagnoses Not on filedocumented in this encounter Care Teams Pin Drafting Machine Operator Relationship Specialty Start Date End Date Carrington Calderon MD 1 [facility] Level 1 [place] [address] PCP - General Internal Medicine - Primary Care 12/09/20 documented as of this encounter
--- OUTSIDE RECORDS SUMMARY | 2024-02-06 13:33 | XMS_ITS | Encounter Summary ---
Author Organization [facility] Address [address] [place] [address] Care Team Providers Care Residential Treatment Specialist Name Role Phone Carrington Calderon MD Primary Care Provi anders Reason for Visit * Reason Onset Date Comments Medications Refill 01/11/2022 Encounter Details Date Type Department Care Team (Late st Contact Info) Description 01/11/2022 Refill [facility] Adult Primary Care [address] [phone] Carrington Calderon MD 1 [facility] Level 1 [place] [address] Medications Refill Social History Tobacco [...] [facility] Adult Primary Care - [address] 545751 Carrington Calderon MD [address] [phone] 02/27/2024 8:30 EDT Telemedicine [facility] Sleep Program - [address] 522391 Dwight Colbert [address] [place] [address] [phone] 02/29/2024 10:[address] [facility] Radiology Nuclear Medicine and PET [address] [id number] 02/29/2024 14:[address] [facility] Radiology Nuclear Medicine and PET [address] 516181 03/01/2024 8:[address] [facility] Radiology Nuclear Medicine and PET [address] [phone] 03/01/2024 9:[address] [facility] Radiology Nuclear Medicine and PET [address] [phone] documented as of this encounter Visit Diagnoses Not on filedocumented in this encounter Discontinued Medications Medication Sig Discontinue Reason Start Date End Da te traMADol (ULTRAM) 50 mg tablet TAKE 1 TABLET BY MOUTH EVERY 6 HOURS NEEDED FOR PAIN - DAILY MAX 4 TABLETS (200MG) Reorder 12/04/2021 01/11/2022 documented as of this encounter Care Teams Residential Treatment Specialist Relationship Specialty Start Date End Date Carrington Calderon MD [address] [place] [address] [phone] PCP - General Internal Medicine - Primary Care 12/09/20 documented as of this encounter
--- OUTSIDE RECORDS SUMMARY | 2024-02-06 13:33 | XMS_ITS | Encounter Summary ---
Author Organization [facility] Address [address] [place] [address] Care Team Providers Care Large Sheetfed Press Operator Name Role Phone Carrington Calderon MD Primary Care Provi anders Reason for Visit * Reason Onset Date Comments Medications Refill 03/12/2021 Encounter Details Date Type Department Care Team (Late st Contact Info) Description 03/12/2021 Telephone [facility] Adult Primary Care - [place] 1 [place], [place] 8039[address] Carrington Calderon MD 1 [facility] Level 1 [place] [address] Medications Refill Social History Tobacco [...] 0914 EDT Medication(s) Requested: Lorazepam [facility] Is patient out of medication? [...] [facility] Primary Care - [address] 855801 Carrington Calderon MD [address] [phone] 02/27/2024 8:30 EDT Telemedicine [facility] Sleep Program - [address] [phone] Dwight Colbert [address] [place] [address] [phone] 02/29/2024 10:30 EDT Appointment [facility] Radiology Nuclear Medicine and PET - [address] [address] 02/29/2024 14:30 EDT Appointment [facility] Radiology Nuclear Medicine and PET [address] [address] 03/01/2024 8:00 EDT Appointment [facility] Radiology Nuclear Medicine and PET [address] [address] 03/01/2024 9:30 EDT Appointment [facility] Radiology Nuclear Medicine and PET - [address] [address] documented as of this encounter Visit Diagnoses [...] documented as of this encounter Care Teams Large Sheetfed Press Operator Relationship Specialty Start Date End Date Carrington Calderon MD 1 [facility] 1 [place] [address] PCP - General Internal Medicine - Primary Care 12/09/20 documented as of this encounter
--- OUTSIDE RECORDS SUMMARY | 2024-02-06 13:33 | XMS_ITS | Encounter Summary ---
Author Organization [facility] Address [address] [place] [address] Care Team Providers Care Extrusion Bender Name Role Phone Carrington Calderon MD Primary Care Provi anders Reason for Visit * Reason Onset Date Comments Medications Refill 10/30/2021 tramadol / lo razepam Encounter Details Date Type Department Care Team (Late st Contact Info) Description 10/30/2021 Refill [facility] Adult Primary Care - [address] 706361 Carrington Calderon MD 1 [facility] Level 1 [place] [address] Medications Refill (tramadol / lorazepam) [facility] [address] 755301 Carrington Calderon MD [address] [place] [phone] 02/27/2024 8:30 EDT Telemedicine [facility] Sleep Program - [address] 546751 Dwight Colbert [address] [place] [address] 298171 02/29/2024 10:30 EDT Appointment [facility] Radiology Nuclear Medicine and PET [address] 504051 02/29/2024 14:30 EDT Appointment [facility] Radiology Nuclear Medicine and PET [address] [phone] 03/01/2024 8:00 EDT Appointment [facility] Radiology Nuclear Medicine and PET [address] [phone] 03/01/2024 9:30 EDT Appointment [facility] Radiology Nuclear Medicine and PET [address] [phone] documented as of this encounter Visit Diagnoses [...] documented as of this encounter Care Teams Extrusion Bender Relationship Specialty Start Date End Date Carrington Calderon MD 1 [facility] [place] [facility] 1 [place] [address] PCP - General Internal Medicine - Primary Care 12/09/20 documented as of this encounter
--- OUTSIDE RECORDS SUMMARY | 2024-02-06 13:33 | XMS_ITS | Encounter Summary ---
Author Organization [facility] Address [address] [place] [address] Care Team Providers Care Hospital Insurance Clerk Name Role Phone Carrington Calderon MD Primary Care Provi anders Reason for Visit * Reason Comments Nutrition Counseling * Consult (See Order Priority) - Order Cancelled Specialty Diagnoses / Procedures Referred By Contact Referred To Contact Nutrition / Gastroenterology and Hepatology Diagnoses Gastroparesis Scott Arzate MD 111 [facility] Level 5 [place] [address] [facility] Mp[facility] Gi [address] [place] [address] Referral ID Status Reason Start Date Expiration Date Visits Requested Visits Authorized [id number] Order Cancelled Specialty Services Required 10/09/2021 1 1 Encounter Details Date Type Department Care Team (Late st Contact Info) Description 10/14/2021 11:00 EDT Nutrition [facility] Gastroenterology - [facility] [address] [place], [place] [phone] [address]ita [address] [place] [address] Gastroparesis; Type 2 diabetes mellitus with diabetic polyneuropathy, with long-term current use of insulin ([facility] ([facility]) Social History Tobacco Use Types Packs/Day [...] (insulin requiring), and gastroparesis. Recently moved to [place], [place]. Reports frequent nausea, early satiety. Has [...] Home Patient location state: Visit Location State: [place] The location of the provider: Office Provider location state: Visit Location State: [place] The following people and their roles were [...] glucose test strips ??? flash glucose sensor (Endoluminal SciencesSTYLE FLORA 2 SENSOR) kit ??? 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 Encouraged obtaining new meter for closer monitoring of blood glucose levels. Encouraged activity/movement on a daily basis, especially after eating. PLAN: Nutrition Recommendations and Goals: 1. Diet for gastroparesis- lower fat, modified textures to soft/blended, modified high fiber foods 2. Continue to follow diet guidelines for DM, re-establish care w/ bleacher groundwood pulp, perhaps at Exercise/Activity Recommendations: exercise/activity as tolerated Educational materials provided: Diet for Gastroparesis Method: Handout and Verbal Taught to: Patient Barriers: None Outcomes: verbalized understanding I spent a total of 45 minutes with Cristy Luo today and 40 minutes of that time was spent incounseling and coordination of care as described in the progress note. Savita Curtis RD [phone] documented in this encounter Plan of Treatment Upcoming Encounters Date Type Department Care Team (Late st Contact Info) Description 02/21/2024 9:45 EDT Office Visit [facility] Adult Primary Care - [address] 078941 Carrington Calderon MD [address] [phone] 02/27/2024 8:30 EDT Telemedicine [facility] Sleep Program - [address] [address] Dwight Colbert [address] [place] [address] [phone] 02/29/2024 10:30 EDT Appointment [facility] Radiology Nuclear Medicine and PET - [address] 139521 02/29/2024 14:30 EDT Appointment [facility] Radiology Nuclear Medicine and PET [address] 513811 03/01/2024 8:00 EDT Appointment [facility] Radiology Nuclear Medicine and PET [address] 808201 03/01/2024 9:30 EDT Appointment [facility] Radiology Nuclear Medicine and PET - [address] [phone] documented as of this encounter Visit Diagnoses Diagnosis Gastroparesis Type 2 diabetes mellitus with diabetic polyneuropathy, with long-term current use of insulin ([facility]) documented in this encounter Care Teams Hospital Insurance Clerk Relationship Specialty Start Date End Date Carrington Calderon MD 1 [facility] Level 1 [place] [address] PCP - General Internal Medicine - Primary Care 12/09/20 documented as of this encounter
--- OUTSIDE RECORDS SUMMARY | 2024-02-06 13:33 | XMS_ITS | Encounter Summary ---
Author Organization [facility] Address [address] [place] [address] Care Team Providers Care School Photographs Detailer Name Role Phone Carrington Calderon MD Primary Care Provi anders Reason for Visit * Reason Onset Date Comments Referral Request 12/09/2020 GI Encounter Details Date Type Department Care Team (Late st Contact Info) Description 12/09/2020 Telephone [facility] Adult Primary Care [facility] 1 [place], [place] [phone] Tonja Alejandro PA-C [address] [place] [address] [place] [phone] Referral Request (GI) Social History Tobacco [...] [facility] Adult Primary Care - [address] [phone] Carrington Calderon MD [address] [phone] 02/27/2024 8:30 EDT Telemedicine [facility] Sleep Program - [address] [address] Dwight Colbert [address] [place] [address] [phone] 02/29/2024 10:30 EDT Appointment [facility] Radiology Nuclear Medicine and PET - [address] [phone] 02/29/2024 14:30 EDT Appointment [facility] Radiology Nuclear Medicine and PET [address] 090211 03/01/2024 8:00 EDT Appointment [facility] Radiology Nuclear Medicine and PET [address] 659141 03/01/2024 9:30 EDT [facility] Nuclear Medicine and PET - [address] [phone] documented as of this encounter Visit Diagnoses Diagnosis Nausea- Primary Nausea alone Gastroparesis documented in this encounter Care Teams School Photographs Detailer Relationship Specialty Start Date End Date Carrington Calderon MD 1 [facility] Level 1 [place] [phone] PCP - General Internal Medicine - Primary Care 12/09/20 documented as of this encounter
--- OUTSIDE RECORDS SUMMARY | 2024-02-06 13:33 | XMS_ITS | Encounter Summary ---
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 PLAN: supermarket manager reviewed current mental health resources with [...] [facility] Adult Primary Care - [address] [address] Carrington Calderon MD [address] [place] [phone] 02/27/2024 8:30 EDT Telemedicine [facility] Sleep Program - [address] [address] Dwight Colbert [address] [place] [address] 02/29/2024 10:30 EDT Appointment [facility] Radiology Nuclear Medicine and PET [address] [phone] 02/29/2024 14:30 EDT Appointment [facility] Radiology Nuclear Medicine and PET [address] 420021 03/01/2024 8:00 EDT Appointment [facility] Radiology Nuclear Medicine and PET [address] 780001 03/01/2024 9:30 EDT Appointment [facility] Radiology Nuclear Medicine and PET [address] [address] documented as of this encounter Visit Diagnoses Not on filedocumented in this encounter Care Teams Hvac Tech Relationship Specialty Start Date End Date Carrington Calderon MD [address] [place] [phone] PCP - General Internal Medicine - Primary Care 12/09/20 documented as of this encounter
--- OUTSIDE RECORDS SUMMARY | 2024-02-06 13:33 | XMS_ITS | Encounter Summary ---
Author Organization [facility] Address [address] [place] [address] Care Team Providers Care Mounter Smoking Pipe Name Role Phone Carrington Calderon MD Primary Care Provi anders Reason for Visit * (Routine/Next Available) - Receiving Office to Obtain Authorization Specialty Diagnoses / Procedures Referred By Kit goode Referred To Contact Procedures XR OUTSIDE IMAGES MSK Unknown, Provider, Referral ID Status Reason Start Date Expiration Date Visits Requested Visits Authorized [id number] Receiving Office to Obtain Authorization 09/12/2021 1 1 Encounter Details Date Type Department Care Team (Latest Contact Info) Description 09/12/2021 16:35 EDT - 09/12/2021 23:59 EDT Hospital Encounter [facility] Secondary Read[place] Discharge Disposition: Home [...] VIGNESH 2 READER) misc 1 Device by [facility] (non-drug; combo route) route continuous. 1 Each 10/01/2020 05/21/2022 flash glucose sensor (FREESTYLE VIGNESH 2 SENSOR) kit 1 Device by [facility] (non-drug; combo route) route continuous. 6 Kit 3 10/01/2020 03/15/2022 gabapentin (NEURONTIN) 300 mg capsuleIndications:Diab etic polyneuropathy associated with type 2 diabetes mellitus ([facility]) Take 300mg in the morning and 900mg [...] hyperglycemia, with long-term current use of insulin ([facility]) Use 1 pen needle as directed [...] Visit [facility] Adult Primary Care - [address] 842171 Carrington Calderon MD [address] [place] [address] 1 [place] [address] 02/27/2024 8:30 EDT Telemedicine [facility] Sleep Program - [address] 274341 Dwight Colbert [address] [place] [phone] 02/29/2024 10:30 EDT [facility] [place] PET - [address] [address] 02/29/2024 14:30 EDT Appointment [facility] Radiology Nuclear Medicine and PET - [address] [address] 03/01/2024 8:00 EDT Appointment [facility] Radiology Nuclear Medicine and PET - [address] [address] 03/01/2024 9:30 EDT Appointment [facility] Radiology Nuclear Medicine and PET - [address] [address] documented as of this encounter Procedures Procedure [...] on filedocumented in this encounter Care Teams Mounter Smoking Pipe Relationship Specialty Start Date End Date Carrington Calderon MD 1 [facility] 1 [place] [address] PCP - General Internal Medicine - Primary Care 12/09/20 documented as of this encounter
--- OUTSIDE RECORDS SUMMARY | 2024-02-06 13:33 | XMS_ITS | Encounter Summary ---
Author Organization [facility] Address [address] [place] [address] Care Team Providers Care Sales Representative Meats Name Role Phone Carrington Calderon MD Primary Care Provi anders Reason for Visit * Reason Onset Date Comments Medications Refill 11/30/2021 Encounter Details Date Type Department Care Team (Late st Contact Info) Description 11/30/2021 Refill [facility] Adult Primary Care [address] 303321 Carrington Calderon MD 1 [facility] Level 1 [place] [address] Medications Refill Social History Tobacco [...] [facility] - [address] 167201 Carrington Calderon MD [address] [phone] 02/27/2024 8:30 EDT Telemedicine [facility] Sleep Program - [address] [phone] Dwight Colbert [address] [place] [address] [phone] 02/29/2024 10:30 EDT Appointment [facility] Radiology Nuclear Medicine and PET - [address] [phone] 02/29/2024 14:30 EDT Appointment [facility] Radiology Nuclear Medicine and PET - [address] [address] 03/01/2024 8:00 EDT Appointment [facility] Radiology Nuclear Medicine and PET - [address] [address] 03/01/2024 9:30 EDT Appointment [facility] Radiology Nuclear Medicine and PET - [address] [address] documented as of this encounter Visit Diagnoses Not on filedocumented in this encounter Care Teams Sales Representative Meats Relationship Specialty Start Date End Date Carrington Calderon MD 1 [facility] 1 [place] [address] PCP - General Internal Medicine - Primary Care 12/09/20 documented as of this encounter
--- OUTSIDE RECORDS SUMMARY | 2024-02-06 13:34 | XMS_ITS | Encounter Summary ---
Author Organization [facility] Address [address] [place] [address] Care Team Providers Care Enterprise Systems Manager Name Role Phone Unavailable Primary Care Provider Unavailabl e Reason for Visit * Reason Comments Back Pain Encounter Details Date Type Department Care Team (Late st Contact Info) Description 11/04/2020 14:15 EDT Office Visit [facility] Adult Primary Care - [address] 280101 Tonja Alejandro PA-C [address] [place] [address] [place] [phone] Chronic midline low back pain with [...] the lumbarspine. We will get done at [place] [facility] -Continue physical therapy Tonja Alejandro PA-C [facility] 11/04/2020 14:45 I spent a [...] Visit [facility] Adult Primary Care [address] 523301 Carrington Calderon MD [address] [address] 02/27/2024 8:30 EDT Telemedicine [facility] Sleep Program - [address] [address] Dwight Colbert [address] [place] [address] [phone] 02/29/2024 10:30 EDT [facility] [place] Rad[facility] Nuclear Medicine and PET - [address] 214921 02/29/2024 14:30 EDT Appointment [facility] Radiology Nuclear Medicine and PET - [address] 204651 03/01/2024 8:00 EDT Appointment [facility] Radiology Nuclear Medicine and PET - [address] [address] 03/01/2024 9:30 EDT Appointment [facility] [place] Radiology Nuclear Medicine and PET [address] [address] documented as of this encounter Visit Diagnoses [...]
--- OUTSIDE RECORDS SUMMARY | 2024-02-06 13:34 | XMS_ITS | Encounter Summary ---
Author Organization [facility] Address [address] [place] [address] Care Team Providers Care Reprographics Technician Name Role Phone Unavailable Primary Care Provider Unavailabl e Reason for Visit * Reason Onset Date Comments Back Pain 10/21/2020 Encounter Details Date Type Department Care Team (Late st Contact Info) Description 10/21/2020 Telephone [facility] Adult Primary Care - [address] [phone] Caroline Skinner MD [address] [place] [address] Back Pain Social History Tobacco [...] Caroline Skinner MD - 10/21/2020 1910 EDT grain blender message: arnold calling on her behalf. Severe [...] [facility] Adult Primary Care - [address] [address] Carrington Calderon MD 1 [facility] 1 [place] [address] 02/27/2024 8:30 EDT Telemedicine [facility] Sleep Program - [address] [address] Dwight Colbert [address] [place] [address] [phone] 02/29/2024 10:30 ED[facility] Nuclear Medicine and PET - [address] [phone] 02/29/2024 14:30 EDT [facility] Rad[facility] Nuclear Medicine and PET - [address] [phone] 03/01/2024 8:00 EDT [facility] Radiology Nuclear Medicine and PET - [address] [phone] 03/01/2024 9:30 EDT [facility] Radiology Nuclear Medicine and PET - [address] [phone] documented as of this encounter Visit Diagnoses Not on filedocumented in this encounter
--- OUTSIDE RECORDS SUMMARY | 2024-02-06 13:34 | XMS_ITS | Encounter Summary ---
Author Organization [facility] Address [address] [place] [address] Care Team Providers Care Arboriculture Instructor Name Role Phone Unavailable Primary Care [...] [facility] Adult Primary Care - [address] [phone] Carrington Calderon MD [address] [phone] 02/27/2024 8:30 EDT Telemedicine [facility] Sleep Program - [address] 604131 Dwight Colbert [address] [place] [address] [phone] 02/29/2024 10:30 EDT Appointment [facility] Radiology Nuclear Medicine and PET - [address] 100871 02/29/2024 14:30 EDT Appointment [facility] Radiology Nuclear Medicine and PET - [address] [address] 03/01/2024 8:00 EDT [facility] Rad[facility] Nuclear Medicine and PET - [address] [address] 03/01/2024 9:30 EDT [facility] Radiology Nuclear Medicine and PET - [address] [address] documented as of this encounter Visit Diagnoses Not on filedocumented in this encounter
--- OUTSIDE RECORDS SUMMARY | 2024-02-06 13:34 | XMS_ITS | Encounter Summary ---
Author Organization [facility] Address [address] [place] [address] Care Team Providers Care Window Installer Name Role Phone Unavailable Primary Care [...] Office Visit [facility] Adult Primary Care - [address] 798271 Carrington Calderon MD 1 [facility] 1 [place] [address] 02/27/2024 8:30 EDT Telemedicine [facility] Sleep Program - [address] 494751 Dwight Colbert [address] [place] [address] [phone] 02/29/2024 10:30 EDT Appointment [facility] Radiology Nuclear Medicine and PET - [address] [phone] 02/29/2024 14:30 EDT Appointment [facility] Radiology Nuclear Medicine and PET - [address] [address] 03/01/2024 8:00 EDT [facility] Radiology Nuclear Medicine and PET - [address] [address] 03/01/2024 9:30 EDT [facility] Radiology Nuclear Medicine and PET - [address] [address] documented as of this encounter Visit Diagnoses Not on filedocumented in this encounter
--- OUTSIDE RECORDS SUMMARY | 2024-02-06 13:34 | XMS_ITS | Encounter Summary ---
Author Organization [facility] Address [address] [place] [address] Care Team Providers Care Press Helper Name Role Phone Unavailable Primary Care Provider Unavailabl e Reason for Visit * Reason Onset Date Comments Medication Questions 10/22/2020 Encounter Details Date Type Department Care Team (Late st Contact Info) Description 10/22/2020 Telephone [facility] Adult Primary Care - [address] [phone] Tonja Alejandro PA-C [address] [place] [address] [place] [phone] Medication Questions Social History Tobacco Use [...] Telephone Encounter - Kamini Whittaker - 10/22/2020 3481 EDT Call to pharmacy to clarify the [...] [facility] [address] 444431 Carrington Calderon MD 1 [facility] Level 1 [place] [address] 02/27/2024 8:30 EDT Telemedicine [facility] Sleep Program - [address] [place] [address] Dwight Colbert [address] [place] [address] 02/29/2024 10:[address] [facility] Radiology Nuclear Medicine and PET - [address] [address] 02/29/2024 14:[address] [facility] Radiology Nuclear Medicine and PET - [address] [address] 03/01/2024 8:[address] [facility] Radiology Nuclear Medicine and PET [address] 719481 03/01/2024 9:[address] [facility] Radiology Nuclear Medicine and PET [address] [address] documented as of this encounter Visit Diagnoses Not on filedocumented in this encounter Discontinued Medications Medication Sig Discontinue Reason Start Date End Da te gabapentin (NEURONTIN) 300 mg capsule Take 1 Cap by mouth 3 times daily. Reorder 08/01/2020 10/22/2020 documented as of this encounter
--- OUTSIDE RECORDS SUMMARY | 2024-02-06 13:34 | XMS_ITS | Encounter Summary ---
Author Organization [facility] Address [address] [place] [address] Care Team Providers Care Die Cutter Operator Name Role Phone Unavailable Primary Care [...] Visit [facility] Adult Primary Care - [address] 832661 Carrington Calderon MD [address] [phone] 02/27/2024 8:30 EDT Telemedicine [facility] Sleep Program - [address] 846031 Dwight Colbert [address] [place] [address] [phone] 02/29/2024 10:[address] [facility] Radiology Nuclear Medicine and PET - [address] [phone] 02/29/2024 14:[address] [facility] Radiology Nuclear Medicine and PET - [address] [address] 03/01/2024 8:00 EDT [facility] Radiology Nuclear Medicine and PET - [address] [address] 03/01/2024 9:30 EDT [facility] Radiology Nuclear Medicine and PET - [address] [address] documented as of this encounter Visit Diagnoses Not on filedocumented in this encounter
--- OUTSIDE RECORDS SUMMARY | 2024-02-06 13:34 | XMS_ITS | Encounter Summary ---
Author Organization [facility] Address [address] [place] [address] Care Team Providers Care Munitions Worker Name Role Phone Unavailable Primary Care Provider Unavailabl e Reason for Visit * Reason Onset Date Comments Medication Problem 10/06/2020 Encounter Details Date Type Department Care Team (Late st Contact Info) Description 10/06/2020 Telephone [facility] Adult Primary Care - [address] 194791 Tonja Alejandro PA-C [address] [place] [address] [place] [phone] Medication Problem Social History Tobacco Use [...] EDT Incoming fax from [facility] states the rx for lancets does [...] [facility] Adult Primary Care - [address] 283931 Carrington Calderon MD 1 [facility] 1 [place] [address] 02/27/2024 8:30 EDT Telemedicine [facility] Sleep Program - [address] 053121 Dwight Colbert [address] [place] [address] 760031 02/29/2024 10:30 EDT Appointment [facility] Radiology Nuclear Medicine and PET - [address] 109681 02/29/2024 14:30 EDT Appointment [facility] Radiology Nuclear Medicine and PET - [address] [address] 03/01/2024 8:00 EDT [facility] Radiology Nuclear Medicine and PET - [address] [address] 03/01/2024 9:30 EDT [facility] Radiology Nuclear Medicine and PET - [address] [address] documented as of this encounter Visit Diagnoses [...]
--- OUTSIDE RECORDS SUMMARY | 2024-02-06 13:34 | XMS_ITS | Encounter Summary ---
Author Organization [facility] Address [address] [place] [address] Care Team Providers Care Research Manufacturing Operator Name Role Phone Unavailable Primary Care Provider Unavailabl e Reason for Visit * Reason Onset Date Comments Coordination Of Care 10/01/2020 Patient arturo ding to ED Encounter Details Date Type Department Care Team (Late st Contact Info) Description 10/01/2020 Telephone [facility] Adult Primary Care - [address] 288641 Tonja Alejandro PA-C [address] [place] [address] [place] [phone] Coordination Of Care (Patient heading to [...] doing well. She did fly out to [place] to visit her family and came back. [...] [facility] - [address] 274851 Carrington Calderon MD [address] [phone] 02/27/2024 8:30 EDT Telemedicine [facility] Sleep Program - [address] [address] Dwight Colbert [address] [place] [address] 02/29/2024 10:30 EDT [facility] Radiology Nuclear Medicine and PET - [address] [address] 02/29/2024 14:30 EDT [facility] Radiology Nuclear Medicine and PET - [address] 827781 03/01/2024 8:00 EDT [facility]ointment [facility] Radiology Nuclear Medicine and PET - [address] 794731 03/01/2024 9:30 EDT Appointment [facility] Radiology Nuclear Medicine and PET - [address] [address] documented as of this encounter Visit Diagnoses [...]
--- OUTSIDE RECORDS SUMMARY | 2024-02-06 13:34 | XMS_ITS | Encounter Summary ---
Author Organization [facility] Address [address] [place] [address] Care Team Providers Care Software Engineer Kernel Name Role Phone Unavailable Primary Care Provider Unavailabl e Reason for Visit * Reason Onset Date Comments No Show 11/24/2020 Encounter Details Date Type Department Care Team (Late st Contact Info) Description 11/24/2020 Telephone [facility] Adult Primary Care - [address] 138071 Tonja Alejandro PA-C [address] [place] [address] [place] [phone] No Show Social History Tobacco Use [...] [facility] Adult Primary Care - [address] 947291 Carrington Calderon MD [address] [address] 02/27/2024 8:30 EDT Telemedicine [facility] Sleep Program - [address] 468501 Dwight Colbert [address] [place] [address] 02/29/2024 10:30 EDT Appointment [facility] Radiology Nuclear Medicine and PET - [address] [phone] 02/29/2024 14:30 EDT Appointment [facility] Radiology Nuclear Medicine and PET [address] [phone] 03/01/2024 8:00 EDT Appointment [facility] Radiology Nuclear Medicine and PET [address] [phone] 03/01/2024 9:30 EDT Appointment [facility] Radiology Nuclear Medicine and PET [address] [phone] documented as of this encounter Visit Diagnoses Not on filedocumented in this encounter
--- OUTSIDE RECORDS SUMMARY | 2024-02-06 13:34 | XMS_ITS | Encounter Summary ---
Author Organization [facility] Address [address] [place] [address] Care Team Providers Care Marketing Technology Specialist Name Role Phone Unavailable Primary Care Provider Unavailabl e Reason for Visit * Reason Onset Date Comments Medications Refill 12/05/2020 Encounter Details Date Type Department Care Team (Late st Contact Info) Description 12/05/2020 Refill [facility] Adult Primary Care - [address] 926551 Tonja Alejandro PA-C [address] [place] [address] [place] [phone] Medications Refill Social History Tobacco Use [...] 0823 EDT Medication(s) Requested: Lorazepam Preferred Pharmacy: [facility] Is patient out of medication? Yes Last [...] [facility] Adult Primary Care - [address] [phone] Carrington Calderon MD [address] [address] 02/27/2024 8:30 EDT Telemedicine [facility] Sleep Program - [address] 959751 Dwight Colbert [address] [place] [address]371 02/29/2024 10:30 EDT Appointment [facility] Radiology Nuclear Medicine and PET [address] [phone] 02/29/2024 14:30 EDT Appointment [facility] Radiology Nuclear Medicine and PET [address] [phone] 03/01/2024 8:00 EDT Appointment [facility] Radiology Nuclear Medicine and PET [address] [phone] 03/01/2024 9:30 EDT Appointment [facility] Radiology Nuclear Medicine and PET [address] [phone] documented as of this encounter Visit Diagnoses [...]
--- OUTSIDE RECORDS SUMMARY | 2024-02-06 13:34 | XMS_ITS | Encounter Summary ---
Author Organization [facility] Address [address] [place] [address] Care Team Providers Care Visitor Services Associate Name Role Phone Unavailable Primary Care [...] Expiration Date Visits Re quested Visits Authorized [id number] 1 1 Encounter Details Date Type Department Care Team (Late st Contact Info) Description 10/02/2020 18:44 EDT - 10/03/2020 12:37 EDT Hospital Encounter [facility] Specialty Surgery Unit [address] [place] [address] Jonas Ambrosio MD 111 [facility], Level 1 [place] [address] Bonita See MD [address] [phone] Intractable vomiting (Primary Dx); Intractable [...] post salpingectomy 08/24 who admitted to the [facility] with intractable nausea and vomiting. [...] hyperglycemia, with long-term current use of insulin ([facility]) Use 1 pen needle as [...] Disposition Code Departure Means Destination Home-Health Care [facility] Home documented in this encounter Progress Notes * Carlos Gabriel - 10/03/2020 1237 EDT Case Management Note: Patient was discharged home to self care prior to initial CM assessment. This automobile service writer reviewed the patient's chart and discussed the patient's situation with the medical team. No case management dc needs were identified. Carlos Gabriel RN, COMMERCIAL BAKER HELPER, [facility] Pager # [phone] * Shirley Monte RN - 10/03/2020 0659 EDT Admission Note D - 35 y.o. [...] has a referral for therapy. ??? Diabetes ([facility]) A1c 10.3 on 11/28/2019 - poorly controlled ??? Diabetes mellitus, type 2 ([facility]) pt check blood sugars at [...] ??? Obesity, unspecified ??? Osteomyelitis ([facility]) of left great toe-s/p amputation ??? [...] 2 READER) misc 1 Device by [facility] (non-drug; comboroute) route continuous. 1 Each 0 10/02/2020 ??? flash glucose sensor (FREESTYLE VIGNESH 2 SENSOR) kit 1 Device by [facility] [place] (non- drug; combo route) route continuous. 6 [...] IDDM2 c/b neuropathy - SSI - restart THERAPIST OCCUPATIONAL lantis 42 U and aspart 9 U TID once resumes eating (hold and use SSI until see trend considering glucose values overnight and recurrent N/V after arrival to floor) - held sitagliptin Counseled on monitoring left second digit Back pain - THERAPIST OCCUPATIONAL gabapentin Anxiety - THERAPIST OCCUPATIONAL lorazepam Diet: Consistent carb diet VTE Prophylaxis: lovenox Consults: none CODE STATUS: Full Prognosis/Disposition: likely discharge home tomorrow is she is medically stable. Admission Status Inpatient. Anticipated duration of hospitalization is greater than two midnights due to intractablevomiting. Keerthi Alejandro, MS 4 Acting Flute Polisher 10/03/2020 1:45 Cortex; Pager #[phone] Attending Attestation Date of service: 10/03/20 I [...] exam for emergent medical conditions at the [facility] on 10/02/2020 This note was created [...] with her endo in November. Vicki CLARKE dieing out machine operator Nurse Clinician #[id number] documented in this encounter Plan of Treatment Upcoming Encounters Date Type Department Care Team (Late st Contact Info) Description 02/21/2024 9:45 EDT Office Visit [facility] Adult Primary Care - [address] [phone] Carrington Calderon MD [address] [phone] 02/27/2024 8:30 EDT Telemedicine [facility] Sleep Program - [address] [phone] Dwight Colbert [address] [place] [phone] 02/29/2024 10:30 EDT Appointment [facility] Radiology Nuclear Medicine and PET [address] [phone] 02/29/2024 14:30 EDT Appointment [facility] Radiology Nuclear Medicine and PET [address] [phone] 03/01/2024 8:00 EDT Appointment [facility] Radiology Nuclear Medicine and PET [address] [phone] 03/01/2024 9:30 EDT Appointment [facility] Radiology Nuclear Medicine and PET [address] [phone] documented as of this encounter Procedures Procedure [...] EDT) 10/27/2020 16:3 8 EDT Scan 2 Director Of Instruction PROCEDURE/MINOR BRAULIO GICAL ORDERABLES * (ABNORMAL) COMPLETE BLOOD COUNT (10/03/2020 7:15 EDT) WBC 12.78(H) 4.00 - 12.40 K/cmm 10/03/2020 8:32 [facility] RBC 4.06 3.86 - 5.04 M/cmm 10/03/2020 8:32 [facility] Hemoglobin 13.1 11.6 - 15.2 gm/dL 10/03/2020 8:32 [facility] HCT 35.2 34.9 - 44.4 % 10/03/2020 8:32 [facility] MCV 87 81 - 98 fl 10/03/2020 8:32 [facility] MCH 32.3 26.7 - 33.3 pg 10/03/2020 8:32 [facility] MCHC 37.2(H) 32.1 - 35.9 gm/dL 10/03/2020 8:32 [facility] RDW-CV 12.2 <14.7 % 10/03/2020 8:32 [facility] RDW-SD 38.9 <50.4 fl 10/03/2020 8:32 [facility] PLT 372 141 - 377 K/cmm 10/03/2020 8:32 [facility] MPV 9.4(L) 9.5 - 12.7 fl 10/03/2020 8:32 [facility] Blood VENOUS BLOOD / Unknown Venipuncture / Unknown 10/03/2020 7:15 EDT 10/03/2020 8:21 EDT Bonita See MD HEMATOLOGY & PF4 ORD ERABLES Performing Organization Address City/[facility] Co de Phone Number [facility] [address] [place] [address] * (ABNORMAL) BUN (10/03/2020 7:15 EDT) BUN 6(L) 10 - 26 mg/dL 10/03/2020 9:07 EDT [facility] Blood VENOUS BLOOD / Unknown Venipuncture / Unknown 10/03/2020 7:15 EDT 10/03/2020 8:23 EDT Bonita See MD CHEMISTRY & BLOOD GA S ORDERABLES Performing Organization Address [facility] Co de Phone Number [facility] [address] [place] [address] * (ABNORMAL) CREATININE (10/03/2020 7:15 EDT) Creatinine 0.43(L) 0.52 - 1.04 mg/dL 10/03/2020 9:07 EDT [facility] eGFR 132 >60 mL/min/1.7 3m2 10/03/2020 9:07 EDT [facility] Comment:eGFR calculated gil curtis CKD-EPI equation for non- Americans. Multiply eGFR by 1.16 for patients. Blood VENOUS BLOOD / Unknown Venipuncture / Unknown 10/03/2020 7:15 EDT 10/03/2020 8:23 EDT Bonita See MD CHEMISTRY & BLOOD GA S ORDERABLES Performing Organization Address [facility] Co de Phone Number [facility] [address] [place] [address] * (ABNORMAL) ELECTROLYTES (10/03/2020 7:15 EDT) Pathologist [facility] Sodium 135(L) 136 - 145 mEq/L 10/03/2020 9:07 EDT [facility] Potassium 3.7 3.5 - 5.0 mEq/L 10/03/2020 9:07 EDT [facility] Chloride 98 96 - 110 mEq/L 10/03/2020 9:07 EDT [facility] CO2 Total 23 22 - 32 mEq/L 10/03/2020 9:07 EDT [facility] Blood VENOUS BLOOD / Unknown Venipuncture / Unknown 10/03/2020 7:15 EDT 10/03/2020 8:23 EDT Bonita See MD CHEMISTRY & BLOOD GA S ORDERABLES Performing Organization Address City/[facility]/ZIP Co de Phone Number [facility] [address] [place] [address] * (ABNORMAL) POCT GLUCOSE, INTERFACED (10/03/2020 6:02 EDT) [facility] Glucose, POC 177(H) 70 - 100 mg/dL 10/03/2020 6:08 EDT [facility] shrimper ID [id number] 10/03/2020 6:08 EDT [facility] HN LAB POC COMMENT (GLUCOSE) Test Performed by Nursing Services 10/03/2020 6:08 EDT [facility] Blood CAPILLARY BLOOD / Unknown 10/03/2020 6:02 EDT 10/03/2020 6:08 EDT Bonita See MD POINT OF CARE TEST O RDERABLES [facility] [address] [place] [address] * COVID-19 TEST [facility] PCR (10/02/2020 22:44 EDT) Swab ENTIRE NASOPHARYNX / Unknown Swab / Unknown 10/02/2020 22:44 EDT 10/02/2020 22:46 EDT Nektarios Konstantinopoulos MD MICROBIOL OGY - GENERAL ORDERABLES [facility] [address] [place] [address] * COVID-19 TESTING (10/02/2020 22:44 EDT) COVID-19 rt-PCR Result Negative Negative 10/03/2020 1:45 EDT [facility] Comment: This test [...] history, and epidemiological information. Performed on the O4IT Fusion instrument Performing Lab [place] [facility] 10/03/2020 1:45 EDT [facility] Swab ENTIRE NASOPHARYNX / Unknown Swab / Unknown 10/02/2020 22:44 EDT 10/02/2020 22:46 EDT Beverly Marvin MD MICROBIOL OGY - GENERAL ORDERABLES [facility] [address] [place] [address] * CT ABDOMEN PELVIS W CONTRAST (10/02/2020 [...] suspicious osseous lesion. Multilevel discogenic endplate changes. Marketing Rotation Associate: No additional findings. Procedure Note Wilian Wellington [...] or suspicious osseous lesion.Multilevel discogenic endplate changes. Marketing Rotation Associate: No additional findings. IMPRESSION 1. No acute inflammatory process identified in the abdomen and pelvis. 2. Nonobstructing left renal calculus, unchanged. I have personally reviewed the images and the above interpretation andagree with the findings. Beverly Marvin MD IMG CT OR DERABLES * QUANT BETA HCG, (10/02/2020 19:51 EDT) Beta HCG Quant, <5 <5 mIU/ml 10/02/2020 20:26 EDT [facility] Comment: NOTE: : [...] Marvin MD CHEMISTRY & BLOOD GAS ORDERABLES [facility] [address] [place] [address] * LACTIC ACID (10/02/2020 19:10 EDT) Lactic Acid 1.2 <=2.0 mmol/L 10/02/2020 19:28 EDT [facility] Blood VENOUS BLOOD / Unknown Venipuncture / Unknown 10/02/2020 19:10 EDT 10/02/2020 19:16 EDT Beverly Marvin MD CHEMISTRY & BLOOD GAS ORDERABLES Performing Organization Address City/[facility]/ZIP Co de Phone Number [facility] [address] [place] [address] * HOLD BLUE TOP (10/02/2020 19:10 EDT) Hold Hold 10/02/2020 20:17 EDT [facility] Blood VENOUS BLOOD / Unknown Venipuncture / Unknown 10/02/2020 19:10 EDT 10/02/2020 19:15 EDT Jonas Ambrosio MD LAB INFO SERVICE AND SUPPORT & PHONE RESULT Performing Organization Address [facility] Co de Phone Number [facility] [address] [place] [address] * (ABNORMAL) SCREENING GLUCOSE (10/02/2020 19:10 EDT) Pathologist [facility] Glucose, Screening 189(H) 70 - 100 mg/dL 10/02/2020 19:32 EDT [facility] Comment:Elevated screening g lucose value greater than 180 mg/dl, please order follow up Hemoglobin A1C. Blood VENOUS BLOOD / Unknown Venipuncture / Unknown 10/02/2020 19:10 EDT 10/02/2020 19:16 EDT Jonas Ambrosio MD CHEMISTRY & BLOOD GA S ORDERABLES Performing Organization Address [facility]/ZIP Co de Phone Number [facility] [address] [place] [address] * MAGNESIUM (10/02/2020 19:10 EDT) Magnesium 1.8 1.7 - 2.8 mg/dL 10/02/2020 19:28 EDT [facility] Blood VENOUS BLOOD / Unknown Venipuncture / Unknown 10/02/2020 19:10 EDT 10/02/2020 19:16 EDT Jonas Ambrosio MD CHEMISTRY & BLOOD GA S ORDERABLES Performing Organization Address [facility]/ZIP Co de Phone Number [facility] [address] [place] [address] * TROPONIN I (10/02/2020 19:10 EDT) Troponin I (ng/mL) <0.034 <0.034 ng/mL 10/02/2020 19:40 EDT [facility] Blood VENOUS BLOOD / Unknown Venipuncture / Unknown 10/02/2020 19:10 EDT 10/02/2020 19:16 EDT Narrative [facility] - 10/02/2020 19:40 EDT The results of this assay can be falsely lowered due to the consumption of Biotin. Jonas Ambrosio MD CHEMISTRY & BLOOD GA S ORDERABLES Performing Organization Address [facility] de Phone Number [facility] [address] [place] [address] * (ABNORMAL) ELECTROLYTES (10/02/2020 19:10 EDT) Pathologist [facility] Sodium 132(L) 136 - 145 mEq/L 10/02/2020 19:28 EDT [facility] Potassium 3.4(L) 3.5 - 5.0 mEq/L 10/02/2020 19:28 EDT [facility] Chloride 95(L) 96 - 110 mEq/L 10/02/2020 19:28 EDT [facility] CO2 Total 30 22 - 32 mEq/L 10/02/2020 19:28 EDT [facility] Blood VENOUS BLOOD / Unknown Venipuncture / Unknown 10/02/2020 19:10 EDT 10/02/2020 19:16 EDT Jonas Ambrosio MD CHEMISTRY & BLOOD GA S ORDERABLES Performing Organization Address [facility]/ZIP Co de Phone Number [facility] [address] [place] [address] * (ABNORMAL) CREATININE (10/02/2020 19:10 EDT) Creatinine 0.45(L) 0.52 - 1.04 mg/dL 10/02/2020 19:28 EDT [facility] eGFR 130 >60 mL/min/1.7 3m2 10/02/2020 19:28 EDT [facility] Comment:eGFR calculated gil curtis CKD-EPI equation for non- Americans. Multiply eGFR by 1.16 for patients. Blood VENOUS BLOOD / Unknown Venipuncture / Unknown 10/02/2020 19:10 EDT 10/02/2020 19:16 EDT Jonas Ambrosio MD CHEMISTRY & BLOOD GA S ORDERABLES Performing Organization Address [facility] Co de Phone Number [facility] [address] [place] [address] * (ABNORMAL) BUN (10/02/2020 19:10 EDT) BUN 6(L) 10 - 26 mg/dL 10/02/2020 19:28 EDT [facility] Blood VENOUS BLOOD / Unknown Venipuncture / Unknown 10/02/2020 19:10 EDT 10/02/2020 19:16 EDT Jonas Ambrosio MD CHEMISTRY & BLOOD GA S ORDERABLES Performing Organization Address City/[facility]/ZIP Co de Phone Number [facility] [address] [place] [address] * (ABNORMAL) COMPLETE BLOOD COUNT AND DIFFERENTIAL (10/02/2020 19:10 EDT) WBC 13.29(H) 4.00 - 12.40 K/cmm 10/02/2020 19:32 EDT [facility] RBC 4.09 3.86 - 5.04 M/cmm 10/02/2020 19:32 EDT [facility] Hemoglobin 12.7 11.6 - 15.2 gm/dL 10/02/2020 19:32 [facility] HCT 36.1 34.9 - 44.4 % 10/02/2020 19:32 [facility] MCV 88 81 - 98 fl 10/02/2020 19:32 [facility] MCH 31.1 26.7 - 33.3 pg 10/02/2020 19:32 [facility] MCHC 35.2 32.1 - 35.9 gm/dL 10/02/2020 19:32 [facility] RDW-CV 12.3 <14.7 % 10/02/2020 19:32 [facility] RDW-SD 39.6 <50.4 fl 10/02/2020 19:32 [facility] PLT 355 141 - 377 K/cmm 10/02/2020 19:32 [facility] MPV 9.2(L) 9.5 - 12.7 fl 10/02/2020 19:32 [facility] % Neutrophils 57.2 % 10/02/2020 19:32 [facility] % Lymphocytes 32.1 % 10/02/2020 19:32 [facility] % Monocytes 9.0 % 10/02/2020 19:32 [facility] % Eosinophils 0.8 % 10/02/2020 19:32 [facility] % Basophils 0.5 % 10/02/2020 19:32 [facility] % Immature Grans 0.4 % 10/03/19 19:32 [facility] Absolute Neutrophils 7.62 2.20 - 8.85 K/cmm 10/02/2020 19:32 [facility] Absolute Lymphocytes 4.27(H) 1.09 - 3.30 K/cmm 10/02/2020 19:32 [facility] Absolute Monocytes 1.19(H) 0.10 - 0.80 K/cmm 10/02/2020 19:32 [facility] Absolute Eosinophils 0.10 0.03 - 0.61 K/cmm 10/02/2020 19:32 EDT [facility] ABS Basophils 0.06 0.01 - 0.11 K/cm 10/02/2020 19:32 EDT [facility] Absolute Immature Grans 0.05 0.00 - 0.06 K/cmm 10/02/2020 19:32 EDT [facility] Type of Differential: Auto 10/02/2020 19:32 EDT [facility] Blood VENOUS BLOOD / Unknown Venipuncture / Unknown 10/02/2020 19:10 EDT 10/02/2020 19:15 EDT Jonas Ambrosio MD PACKAGES & DNA PROBE ORDERABLES Performing Organization Address City/State/[facility] Co de Phone Number [facility] [address] [place] [address] * EKG 12-LEAD (10/02/2020 19:04 EDT) 10/02/2020 19:0 4 EDT Narrative [facility] EKG - 10/27/2020 16:30 EDT ?[facility] Emergency ? Test Date: ?2020-10-02 Pat Name: ? CRISTY LUO ?Department: ?? ED ? Room: ? AC06 Gender: ? Female ? Student Advisor: ?? [id number] : ?1985 ? Requested By: BO JONAS Santizo Order Number: [id number] ? Reading : ?? CINDY SNYDER MD ? Measurements Intervals ?[place] ? Rate: ? 92 ? P: ?59 HI: ? 155 ?QRS: ?10 QRSD: ? 91 ? T: ?0 QT: ? 356 ? QTc: ?442 ? Interpretive Statements SINUS RHYTHM Compared to ECG 10/02/2020 19:04:21 No significant changes I reviewed the tracing and have either agreed or edited the findings in this report. Electronically Signed On 10-27-2020 16:30:39 EDT by CINDY SNYDER MD. Procedure Note Cindy Snyder Jr., MD - 10/27/[address] [facility] Emergency Test Date: 2020-10-02 Pat Name: CRISTY LUO Department: ED Room: [facility] Gender: Female Student Advisor: [id number] : 1985 Requested By: BO Santizo Order Number: [id number] Reading MD: CINDY SNYDER MD Measurements Intervals [place] Rate: 92 P: 59 HI: 155 QRS: 10 QRSD: 91 T: 0 QT: 356 QTc: 442 Interpretive Statements SINUS RHYTHM Compared to ECG 10/02/2020 19:04:21 No significant changes I reviewed the tracing and have either agreed or edited the findings inthis report. Electronically Signed On 10-27-2020 16:30:39 EDT by CINDY SANDOVAL. Jonas Ambrosio MD CARDIAC ECG ORDERABL ES [facility] EKG * (ABNORMAL) COMPREHENSIVE METABOLIC PANEL (CMP) (10/01/2020 11:51 EDT) Sodium 139 136 - 145 mEq/L 10/02/2020 19:47 [facility] Potassium 3.5 3.5 - 5.0 mEq/L 10/02/2020 19:47 [facility] Comment: NOTE: Interpret with caution. Prolonged sample storage may alter the result. Chloride 97 96 - 110 mEq/L 10/02/2020 19:47 [facility] CO2 Total 23 22 - 32 mEq/L 10/02/2020 19:47 [facility] Comment: NOTE: Interpret with caution. Prolonged sample storage may alter the result. Glucose 221(H) 70 - 100 mg/dL 10/02/2020 19:47 [facility] BUN 13 10 - 26 mg/dL 10/02/2020 19:47 [facility] Creatinine 0.50(L) 0.52 - 1.04 mg/dL 10/02/2020 19:47 [facility] eGFR 126 >60 mL/min/1.7 3m2 10/02/2020 19:47 [facility] Comment:eGFR calculated gil curtis CKD-EPI equation for non- Americans. Multiply eGFR by 1.16 for patients. Total Protein 6.6 6.3 - 8.2 g/dL 10/02/2020 19:47 T [facility] Albumin 4.1 3.4 - 4.9 g/dL 10/02/2020 19:47 [facility] Alkaline Phosphatase 86 38 - 126 U/L 10/02/2020 19:47 [facility] AST 31 15 - 46 U/L 10/02/2020 19:47 T [facility] ALT 24 <35 U/L 10/02/2020 19:47 [facility] Bilirubin, Total 0.5 <1.4 mg/dL 10/03/19 19:47 T [facility] Calcium 9.6 8.5 - 10.5 mg/dL 10/02/2020 19:47 [facility] Calculated Calcium 9.5 8.5 - 10.5 mg/dL 10/02/2020 19:47 T [facility] Blood VENOUS BLOOD / Unknown Venipuncture / Unknown 10/01/2020 11:51 EDT 10/01/2020 11:57 EDT Beverly Marvin MD CHEMISTRY & BLOOD GAS ORDERABLES Performing Organization Address City/[facility] Co de Phone Number [facility] [address] [place] [address] * LIPASE (10/01/2020 11:51 EDT) Lipase 174 <251 U/L 10/02/2020 19:46 EDT [facility] Blood VENOUS BLOOD / Unknown Venipuncture / Unknown 10/01/2020 11:51 EDT 10/01/2020 11:57 EDT Beverly Marvin MD CHEMISTRY & BLOOD GAS ORDERABLES Performing Organization Address [facility] Co de Phone Number [facility] [address] [place] [address] documented in this encounter Visit Diagnoses Diagnosis [...] X1, 1 dose, On Renee 10/02/20 at [id number] (Given - Provider: Fermin Ramirez RN) electrolyte-A [...] FLEXPEN) injection 1 10/03/2020 polyethylene glycol 3350 (NH RALAX) packet 17 g 1 10/03/2020 potassium chloride SA (K-DUR ) tablet 40 mEq 1 10/03/2020 ramelteon (ROZEREM) tablet 8 mg 1 Diet Count Last Ordered Date First Orde red Date DISCHARGE DIET 1 10/03/2020 Nursing Count Last Ordered Date First Orde red Date ACTIVITY INSTRUCTIONS 1 10/03/2020 BATHING INSTRUCTIONS 1 10/03/2020 DRIVING INSTRUCTIONS 1 10/03/2020 NOTIFY SPLINE ROLLING MACHINE JOB SETTER 1 10/02/2020 Admission Count Last Ordered Date [...]
--- OUTSIDE RECORDS SUMMARY | 2024-02-06 13:34 | XMS_ITS | Encounter Summary ---
Author Organization [facility] Address [address] [place] [address] Care Team Providers Care Heel Coverer Machine Operator Name Role Phone Unavailable Primary [...] [facility] Adult Primary Care - [address] [phone] Carrington Calderon MD 1 [facility] 1 [place] [phone] 02/27/2024 8:30 EDT Telemedicine [facility] Sleep Program - [address] [phone] Dwight Colbert [address] [place] [phone] 02/29/2024 10:30 EDT Appointment [facility] Radiology Nuclear Medicine and PET - [address] [phone] 02/29/2024 14:30 EDT Appointment [facility] Radiology Nuclear Medicine and PET - [address] [phone] 03/01/2024 8:00 EDT Appointment [facility] Radiology Nuclear Medicine and PET - [address] [phone] 03/01/2024 9:30 EDT Appointment [facility] Radiology Nuclear Medicine and PET [address] [phone] documented as of this encounter Visit Diagnoses Not on filedocumented in this encounter
--- OUTSIDE RECORDS SUMMARY | 2024-02-06 13:34 | XMS_ITS | Encounter Summary ---
Author Organization [facility] Address [address] [place] [address] Care Team Providers Care Chocolate Molder Name Role Phone Unavailable Primary Care Provider Unavailabl e Reason for Visit * Reason Onset Date Comments Medications Refill 10/07/2020 Encounter Details Date Type Department Care Team (Late st Contact Info) Description 10/07/2020 Telephone [facility] Endocrinology - [facility] [address] [place] [address] Sara Zafar NP [address] [facility] [address] [place] [address] Medications Refill Social History Tobacco [...] [facility] [address] 785391 Carrington Calderon MD 1 [facility] 1 [place] [address] 02/27/2024 8:30 EDT Telemedicine [facility] Sleep Program - [address] [address] Dwight Colbert [address] [place] [phone] 02/29/2024 10:30 EDT Appointment [facility] Radiology Nuclear Medicine and PET - [address] [address]001 02/29/2024 14:30 EDT Appointment [facility] Radiology Nuclear Medicine and PET [address] [phone] 03/01/2024 8:00 EDT Appointment [facility] Radiology Nuclear Medicine and PET [address] [phone] 03/01/2024 9:30 EDT Appointment [facility] Radiology Nuclear Medicine and PET [address] [phone] documented as of this encounter Visit Diagnoses Not on filedocumented in this encounter
--- OUTSIDE RECORDS SUMMARY | 2024-02-06 13:34 | XMS_ITS | Encounter Summary ---
Author Organization [facility] Address [address] [place] [address] Care Team Providers Care Crew Person Name Role Phone Unavailable Primary Care Provider Unavailabl e Reason for Referral * PT/OT/ST (Routine) - Closed Specialty Diagnoses / Procedures Referred By Contac t Referred To Contact Diagnoses Acute right-sided low back pain with sciatica, sciatica laterality unspecified Moshe Ferrer MD [address] [place] [phone] Gay Hyman, PT [id number] [place] [address] Referral ID Status Reason Start Date Expiration Date V isits Requested Visits Authorized [id number] Closed Specialty Services Required 10/22/2020 1 1 Question Answer Reason for Request: acute on chronic low back pain, history of emotional trauma Reason for Visit * Reason Comments Back Pain right lower back kuldeep n radiating down right lower limb. Encounter Details Date Type Department Care Team (Late st Contact Info) Description 10/22/2020 10:00 EDT Office Visit [facility] Adult Primary Care - [place] 1 [place], [place] [address] Linnea Patel MD [address] [place] [phone] Acute right-sided low back pain with sciatica, [...] Linnea Patel MD - 10/22/2020 1000 EDT [place] Adult [facility] Resident [facility] Patient Name: [...] in the resident's note. Moshe Ferrer MD [facility] sales manager documented in this encounter Plan of Treatment Upcoming Encounters Date Type Department Care Team (Late st Contact Info) Description 02/21/2024 9:45 EDT Office Visit [facility] Adult Primary Care - [address] [phone] Carrington Calderon MD 1 [facility] 1 [place] [phone] 02/27/2024 8:30 EDT Telemedicine [facility] Sleep Program - [address] [address]181 Dwight Colbert [address] [place] [phone] 02/29/2024 10:30 EDT Appointment [facility] Radiology Nuclear Medicine and PET - [address] [address] 02/29/2024 14:30 EDT Appointment [facility] Radiology Nuclear Medicine and PET - [address] [address] 03/01/2024 8:00 EDT Appointment [facility] Radiology Nuclear Medicine and PET [address] [address] 03/01/2024 9:30 EDT Appointment [facility] Radiology Nuclear Medicine and PET [address] [address] Scheduled Referrals Name Type Priority Associated Diagnoses [...]
--- OUTSIDE RECORDS SUMMARY | 2024-02-06 13:34 | XMS_ITS | Encounter Summary ---
Author Organization [facility] Address [address] [place] [address] Care Team Providers Care Leasing Manager Name Role Phone Unavailable Primary Care [...] 21:17 EDT - 12/07/2020 1:52 EDT Emergency [facility] Emergency Department - [address] [address] Fran Barbosa MD [address] [place] [address], Level 1 [place] [address] Andrés Garcia MD [address] [place] [phone] Nausea and vomiting, intractability of vomiting [...] through Care Everywhere. * Nausea and Vomiting (Albanian) documented in this encounter Medications at Time [...] VIGNESH 2 READER) misc 1 Device by [facility] (non-drug; combo route) route continuous. 1 Each 10/01/2020 05/21/2022 flash glucose sensor (FREESTYLE VIGNESH 2 SENSOR) kit 1 Device by [facility] (non-drug; combo route) route continuous. [...] with long-term current use of insulin ([facility]) Use 1 pen needle as [...] or Self Detention documented in this encounter ED Notes * Andrés Garcia MD - 12/07/2020 0105 EDT I, Chrystal Brown, am scribing for Andrés Garcia MD while he/she is personally performing the service. hCrystal Brown 12/07/2020 1:05 This documentation is recorded [...] [facility] - [address] [address] Carrington Calderon MD [address] [phone] 02/27/2024 8:30 EDT Telemedicine [facility] Sleep Program - [address] [phone] Dwight Colbert [address] [place] [phone] 02/29/2024 10:30 EDT Appointment [facility] Radiology Nuclear Medicine and PET - [address] 844301 02/29/2024 14:30 EDT Appointment [facility] Radiology Nuclear Medicine and PET [address] [address] 03/01/2024 8:00 EDT Appointment [facility] Radiology Nuclear Medicine and PET - [address] [address] 03/01/2024 9:30 EDT Appointment [facility] Radiology Nuclear Medicine and PET - [address] [address] documented as of this encounter Procedures Procedure [...] EDT) 12/11/2020 16:3 7 EDT Scan 2 Shuttle Repairer PROCEDURE/MINOR BRAULIO GICAL ORDERABLES * (ABNORMAL) POCT URINE DIPSTICK, CLINITEK (12/07/2020 0:20 EDT) Color, UA Yellow Yellow 12/07/2020 0:26 [facility] Clarity, UA Clear Clear 12/07/2020 0:26 [facility] Glucose, UA 2+(A) Negative mg/dL 12/07/2020 0:26 [facility] Bilirubin, UA Negative Negative 12/07/2020 0:26 [facility] Ketones, UA 4+(AA) Negative mg/dL 12/07/2020 0:26 [facility] Specific [place], Urine 1.025 1.001 - 1.035 12/07/2020 0:26 [facility] Blood, UA Negative Negative 12/07/2020 0:26 [facility] pH, UA 7.0 <=8 12/07/2020 0:26 [facility] Protein, UA Negative Negative mg/dL 12/07/2020 0:26 [facility] Urobilinogen, UA 0.2 0.2 - 1.0 EU/dL 12/07/2020 0:26 EDT [facility] Nitrite, UA Negative Negative 12/07/2020 0:26 EDT [facility] Leuk Esterase Negative Negative 12/07/2020 0:26 EDT [facility] HN LAB COMMENT (CLINITEK, UR) Test performed at Emergency Department 12/07/2020 0:26 EDT [facility] Urine URINE SPECIMEN COLLECTION, CLEAN CATCH / Unknown 12/07/2020 0:20 EDT 12/07/2020 0:26 EDT rFan Barbosa MD POINT OF CARE TEST ORDERABLES Performing Organization Address [facility] Co de Phone Number [facility] [address] [place] [address] * POCT TEST, CLINITEK (12/07/2020 0:08 EDT) Pathologist [facility] UPT Result Negative Negative 12/07/2020 0:14 EDT [facility] HN LAB COMMENT (CLINITEK, UPT) Test performed at Emergency Department 12/07/2020 0:14 EDT [facility] Comment:False negative resul ts may occur in women who are beyond 5-8 weeks gestation. Diagnosis of should be based on a correlation of test results with typical clinical signs and symptoms. Urine URINE SPECIMEN COLLECTION, CLEAN CATCH / Unknown 12/07/2020 0:08 EDT 12/07/2020 0:14 EDT Fran Barbosa MD POINT OF CARE TEST ORDERABLES Performing Organization Address City/[facility] Co de Phone Number [facility] [address] [place] [address] * POCT CSN BARCODE URINE PREG TEST (12/07/2020 0:06 EDT) Urine URINE SPECIMEN COLLECTION, CLEAN CATCH / Unknown Urine Collect / Unknown 12/07/2020 0:06 EDT 12/07/2020 0:06 EDT Fran Barbosa MD LAB INFO SERV ICE AND SUPPORT & PHONE RESULT Performing Organization Address City/[facility]/ZIP Co de Phone Number [facility] [address] [place] [address] * POCT CSN BARCODE URINE DIPSTICK (12/07/2020 0:06 EDT) Urine URINE SPECIMEN COLLECTION, CLEAN CATCH / Unknown Urine Collect / Unknown 12/07/2020 0:06 EDT 12/07/2020 0:06 EDT Fran Barbosa MD LAB INFO SERV ICE AND SUPPORT & PHONE RESULT Performing Organization Address City/[facility]/ZIP Co de Phone Number [facility] [address] [place] [address] * (ABNORMAL) BASIC METABOLIC PANEL (BMP) (12/06/2020 23:42 EDT) Sodium 141 136 - 145 mEq/L 12/07/2020 0:08 [facility] Potassium 4.0 3.5 - 5.0 mEq/L 12/07/2020 0:08 [facility] Chloride 99 96 - 110 mEq/L 12/07/2020 0:08 [facility] CO2 Total 29 22 - 32 mEq/L 12/07/2020 0:08 [facility] Glucose 248(H) 70 - 100 mg/dL 12/07/2020 0:08 [facility] Calcium 9.8 8.5 - 10.5 mg/dL 12/07/2020 0:08 [facility] Calculated Calcium 9.9 8.5 - 10.5 mg/dL 12/07/2020 0:08 [facility] BUN 11 10 - 26 mg/dL 12/07/2020 0:08 [facility] Creatinine 0.45(L) 0.52 - 1.04 mg/dL 12/07/2020 0:08 [facility] eGFR 130 >60 mL/min/1.7 3m2 12/07/2020 0:08 [facility] Comment:eGFR calculated gil curtis CKD-EPI equation for non- Americans. Multiply eGFR by 1.16 for patients. Blood VENOUS BLOOD / Unknown Venipuncture / Unknown 12/06/2020 23:42 EDT 12/06/2020 23:45 EDT Fran Barbosa MD CHEMISTRY & B LOOD GAS ORDERABLES [facility] [address] [place] [address] * EKG 12-LEAD (12/06/2020 21:43 EDT) 12/06/2020 21:4 3 EDT Narrative [facility] EKG - 12/11/2020 16:34 EDT ?[facility] Emergency ? Test Date: ?2020-12-06 Pat Name: ? CRISTY LUO ?Department: ?? ED ? Room: ? AC07 Gender: ? Female ? Online Merchandiser: ?? : ?1985 ? Requested By: DARÍO GAYLE Order Number: [id number] ? Sammie MARTÍNEZ: ?? TRACE SHAUN MARTÍNEZ ? Measurements Intervals ?Sherman ? Rate: ? 86 ? P: ?8 [...] Pat Name: CRISTY LUO Department: ED Room: [facility] Gender: Female Online Merchandiser: : 1985 Requested By: DARÍO SANCHEZ Order Number: [id number] Reading MD: CAROLINA NOYOLA MD Measurements Intervals Sherman Rate: 86 P: 8 PA: 132 QRS: [...] CARDIAC ECG O RDERABLES Performing Organization Address City/[facility] Co de Phone Number [facility] EKG * (ABNORMAL) BETA HYDROXYBUTYRATE (12/06/2020 21:30 EDT) Pathologist [facility] Beta Hydroxybutyrate 2.0(H) <0.4 mmol/L 12/06/2020 22:19 EDT [facility] Blood VENOUS BLOOD / Unknown Venipuncture / Unknown 12/06/2020 21:30 EDT 12/06/2020 21:35 EDT Fran Barbosa MD CHEMISTRY & B LOOD GAS ORDERABLES Performing Organization Address [facility] Co de Phone Number [facility] [address] [place] [address] * LIPASE (12/06/2020 21:30 EDT) [facility] Lipase 97 <251 U/L 12/06/2020 22:06 EDT [facility] Blood VENOUS BLOOD / Unknown Venipuncture / Unknown 12/06/2020 21:30 EDT 12/06/2020 21:35 EDT Fran Barbosa MD CHEMISTRY & B LOOD GAS ORDERABLES Performing Organization Address [facility] de Phone Number [facility] [address] [place] [address] * (ABNORMAL) COMPREHENSIVE METABOLIC PANEL (CMP) (12/06/2020 21:30 EDT) Pathologist [facility] Sodium 142 136 - 145 mEq/L 12/06/2020 22:06 EDT [facility] Potassium 3.8 3.5 - 5.0 mEq/L 12/06/2020 22:06 [facility] Chloride 97 96 - 110 mEq/L 12/06/2020 22:06 [facility] CO2 Total 26 22 - 32 mEq/L 12/06/2020 22:06 [facility] Glucose 288(H) 70 - 100 mg/dL 12/06/2020 22:06 [facility] BUN 12 10 - 26 mg/dL 12/06/2020 22:06 [facility] Creatinine 0.50(L) 0.52 - 1.04 mg/dL 12/06/2020 22:06 [facility] eGFR 126 >60 mL/min/1.7 3m2 12/06/2020 22:06 [facility] Comment:eGFR calculated gil curtis CKD-EPI equation for non- Americans. Multiply eGFR by 1.16 for patients. Total Protein 7.7 6.3 - 8.2 g/dL 12/06/2020 22:06 [facility] Albumin 4.9 3.4 - 4.9 g/dL 12/06/2020 22:06 [facility] Alkaline Phosphatase 105 38 - 126 U/L 12/06/2020 22:06 [facility] AST 22 15 - 46 U/L 12/06/2020 22:06 [facility] ALT 21 <35 U/L 12/06/2020 22:06 [facility] Bilirubin, Total <0.5 <1.4 mg/dL 12/07/19 22:06 [facility] Calcium 10.6(H) 8.5 - 10.5 mg/dL 12/06/2020 22:06 [facility] Calculated Calcium 9.9 8.5 - 10.5 mg/dL 12/06/2020 22:06 [facility] Blood VENOUS BLOOD / Unknown Venipuncture / Unknown 12/06/2020 21:30 EDT 12/06/2020 21:35 EDT Fran Barbosa MD CHEMISTRY & B LOOD GAS ORDERABLES [facility] [address] [place] [address] * (ABNORMAL) COMPLETE BLOOD COUNT AND DIFFERENTIAL (12/06/2020 21:30 EDT) WBC 14.54(H) 4.00 - 12.40 K/cmm 12/06/2020 21:47 [facility] RBC 4.97 3.86 - 5.04 M/cmm 12/06/2020 21:47 [facility] Hemoglobin 15.5(H) 11.6 - 15.2 gm/dL 12/06/2020 21:47 [facility] HCT 42.8 34.9 - 44.4 % 12/06/2020 21:47 [facility] MCV 86 81 - 98 fl 12/06/2020 21:47 [facility] MCH 31.2 26.7 - 33.3 pg 12/06/2020 21:47 [facility] MCHC 36.2(H) 32.1 - 35.9 gm/dL 12/06/2020 21:47 [facility] RDW-CV 12.2 <14.7 % 12/06/2020 21:47 [facility] RDW-SD 38.5 <50.4 fl 12/06/2020 21:47 [facility] PLT 383(H) 141 - 377 K/cmm 12/06/2020 21:47 [facility] MPV 9.7 9.5 - 12.7 fl 12/06/2020 21:47 [facility] % Neutrophils 84.9 % 12/06/2020 21:47 [facility] % Lymphocytes 10.7 % 12/06/2020 21:47 [facility] % Monocytes 4.0 % 12/06/2020 21:47 [facility] % Eosinophils 0.0 % 12/06/2020 21:47 [facility] % Basophils 0.1 % 12/06/2020 21:47 [facility] % Immature Grans 0.3 % 12/07/19 21:47 [facility] Absolute Neutrophils 12.34(H) 2.20 - 8.85 K/cmm 12/06/2020 21:47 [facility] Absolute Lymphocytes 1.55 1.09 - 3.30 K/cmm 12/06/2020 21:47 [facility] Absolute Monocytes 0.58 0.10 - 0.80 K/cmm 12/06/2020 21:47 [facility] Absolute Eosinophils 0.00(L) 0.03 - 0.61 K/cmm 12/06/2020 21:47 [facility] ABS Basophils 0.02 0.01 - 0.11 K/cmm 12/06/2020 21:47 [facility] Absolute Immature Grans 0.05 0.00 - 0.06 K/cmm 12/06/2020 21:47 [facility] Type of Differential: Auto 12/06/2020 21:47 [facility] Blood VENOUS BLOOD / Unknown Venipuncture / Unknown 12/06/2020 21:30 EDT 12/06/2020 21:35 EDT Fran Barbosa MD PACKAGES & DN A PROBE ORDERABLES Performing Organization Address [facility]/State/[facility] Co de Phone Number [facility] [address] [place] [address] * BLOOD BANK HOLD (12/06/2020 21:30 EDT) Hold BB Spec will exp at 23:59, 3 days from collect date 12/06/2020 21:54 [facility] BLOOD BANK Blood VENOUS BLOOD / Unknown Venipuncture / Unknown 12/06/2020 21:30 EDT 12/06/2020 21:37 EDT Fran Barbosa MD BLOOD BANK TE STS [facility] BLOOD BANK [address] [place] [address] * HOLD SST (12/06/2020 21:30 EDT) Hold Hold 12/06/2020 22:45 EDT [facility] Blood VENOUS BLOOD / Unknown Venipuncture / Unknown 12/06/2020 21:30 EDT 12/06/2020 21:35 EDT Fran Barbosa MD LAB INFO SERV ICE AND SUPPORT & PHONE RESULT [facility] [address] [place] [address] * HOLD LAVENDER TOP (12/06/2020 21:30 EDT) Hold Hold 12/06/2020 22:45 EDT [facility] Blood VENOUS BLOOD / Unknown Venipuncture / Unknown 12/06/2020 21:30 EDT 12/06/2020 21:35 EDT Fran Barbosa MD LAB INFO SERV ICE AND SUPPORT & PHONE RESULT Performing Organization Address City/[facility]/ZIP Co de Phone Number [facility] [address] [place] [address] * HOLD GREEN TOP (12/06/2020 21:30 EDT) Hold Hold 12/06/2020 22:45 EDT [facility] Blood VENOUS BLOOD / Unknown Venipuncture / Unknown 12/06/2020 21:30 EDT 12/06/2020 21:35 EDT Fran Barbosa MD LAB INFO SERV ICE AND SUPPORT & PHONE RESULT [facility] [address] [place] [address] * HOLD BLUE TOP (12/06/2020 21:30 EDT) Hold Hold 12/06/2020 22:45 EDT [facility] Blood VENOUS BLOOD / Unknown Venipuncture / Unknown 12/06/2020 21:30 EDT 12/06/2020 21:35 EDT Fran Barbosa MD LAB INFO SERV ICE AND SUPPORT & PHONE RESULT [facility] [address] [place] [address] * (ABNORMAL) POCT GLUCOSE, INTERFACED (12/06/2020 21:13 EDT) Glucose, POC 304(H) 70 - 100 mg/dL 12/06/2020 21:17 EDT [facility] HN LAB POC COMMENT (GLUCOSE) Test Performed by Nursing Services 12/06/2020 21:17 EDT [facility] Blood CAPILLARY BLOOD / Unknown 12/06/2020 21:13 EDT 12/06/2020 21:17 EDT Provider Unknown POINT OF CARE TEST O RDERABLES Performing Organization Address City/[facility]/ZIP Co de Phone Number [facility] [address] [place] [address] documented in this encounter Visit Diagnoses Diagnosis [...] STAT 0137 (Given - Provid er: Megha cD RN) PRN Medication Order 12/05/2020 12/06/2020 12/07/2020 [...]
--- OUTSIDE RECORDS SUMMARY | 2024-02-06 13:34 | XMS_ITS | Encounter Summary ---
Author Organization [facility] Address [address] [place] [address] Care Team Providers Care Sweet Pickled Fruit Maker Name Role Phone Unavailable Primary Care Provider Unavailabl e Reason for Visit * Reason Onset Date Comments Emesis 11/20/2020 Encounter Details Date Type Department Care Team (Late st Contact Info) Description 11/20/2020 Telephone [facility] Adult Primary Care - [address] [phone] Tonja Alejandro PA-C [address] [place] [address] [place] [phone] Emesis Social History Tobacco Use Types [...] but can talk to triage nurse at [facility]. Called and spoke briefly with pt: She [...] not receive previous reglan script. Resending to [facility]. The patient indicates understanding of these issues [...] [facility] Adult Primary Care - [address] [phone] Carrington Calderon MD [address] [phone] 02/27/2024 8:30 EDT Telemedicine [facility] Sleep Program - [address] [phone] Dwight Colbert [address] [place] [phone] 02/29/2024 10:30 EDT Appointment [facility] Radiology Nuclear Medicine and PET - [address] [address] 02/29/2024 14:30 EDT Appointment [facility] Radiology Nuclear Medicine and PET - [address] [address] 03/01/2024 8:00 EDT Appointment [facility] Radiology Nuclear Medicine and [address] [address] 03/01/2024 9:30 EDT Appointment [facility] Radiology Nuclear Medicine and PET [address] [address] documented as of this encounter Visit Diagnoses [...]
--- OUTSIDE RECORDS SUMMARY | 2024-02-06 13:34 | XMS_ITS | Encounter Summary ---
Author Organization [facility] Address [address] [place] [address] Care Team Providers Care Measurement Analyst Name Role Phone Unavailable Primary Care [...] Info) Description 02/21/2024 9:45 EDT Office Visit [facility] Adult Primary Care - [address] [phone] Carrington Calderon MD [address] [phone] 02/27/2024 8:30 EDT Telemedicine [facility] Sleep Program - [address] [phone] Dwight Colbert [address] [place] [phone] 02/29/2024 10:30 EDT Appointment [facility] Radiology Nuclear Medicine and PET - [address] [address] 02/29/2024 14:30 EDT Appointment [facility] Radiology Nuclear Medicine and PET - [address] [address] 03/01/2024 8:00 EDT [facility] Radiology Nuclear Medicine and PET - [address] [address] 03/01/2024 9:30 EDT [facility] Nuclear [facility] and PET - [address] [address] documented as of this encounter Visit Diagnoses Not on filedocumented in this encounter
--- OUTSIDE RECORDS SUMMARY | 2024-02-06 13:34 | XMS_ITS | Encounter Summary ---
Author Organization [facility] Address [address] [place] [address] Care Team Providers Care Waiter/Waitress Cabin Class Name Role Phone Unavailable Primary Care Provider Unavailabl e Reason for Visit * Reason Onset Date Comments Back Pain 10/29/2020 Encounter Details Date Type Department Care Team (Late st Contact Info) Description 10/29/2020 Telephone [facility] Adult Primary Care - [address] [phone] Tonja Alejandro PA-C [facility] [address] [place] [address] Back Pain Social History Tobacco [...] [facility] Adult Primary Care - [address] 177211 Carrington Calderon MD [address] [place] [address] 1 [place] [phone] 02/27/2024 8:30 EDT Telemedicine [facility] Sleep Program - [address] [place] [address] ColbertDwight garner [address] [place], [place] 4401[address] 02/29/2024 10:30 EDT [facility]ointment [facility] Radiology Nuclear Medicine and PET - [address] [phone] 02/29/2024 14:30 EDT [facility]ointment [facility] Radiology Nuclear Medicine and PET - [address] [phone] 03/01/2024 8:00 EDT Appointment [facility] Radiology Nuclear Medicine and PET - [address] [phone] 03/01/2024 9:30 EDT Appointment [facility] Radiology Nuclear Medicine and PET - [address] [phone] documented as of this encounter Visit Diagnoses Not on filedocumented in this encounter
--- OUTSIDE RECORDS SUMMARY | 2024-02-06 13:34 | XMS_ITS | Encounter Summary ---
Author Organization [facility] Address [address] [place] [address] Care Team Providers Care Bottle Label Inspector Name Role Phone Unavailable Primary Care [...] Visit [facility] Adult Primary Care - [address] [phone] Carrington Calderon MD [address] [phone] 02/27/2024 8:30 EDT Telemedicine [facility] Sleep Program - [address] 102421 Dwight Colbert [address] [place] [phone] 02/29/2024 10:30 EDT Appointment [facility] Radiology Nuclear Medicine and PET - [address] 225311 02/29/2024 14:30 EDT Appointment [facility] Radiology Nuclear Medicine and PET - [address] [address] 03/01/2024 8:00 EDT [facility]ointment [facility] Radiology Nuclear Medicine and PET - [address] [address] 03/01/2024 9:30 EDT Appointment [facility] Radiology Nuclear Medicine and PET - [address] [address] documented as of this encounter Visit Diagnoses Not on filedocumented in this encounter
--- OUTSIDE RECORDS SUMMARY | 2024-02-06 13:34 | XMS_ITS | Encounter Summary ---
Author Organization [facility] Address [address] [place] [address] Care Team Providers Care Curling Machine Operator Name Role Phone Carrington Calderon MD Primary Care Provi anders Reason for Visit * Reason Onset Date Comments Medications Refill 12/04/2020 Medications Refill 12/05/2020 Encounter Details Date Type Department Care Team (Late st Contact Info) Description 12/04/2020 Refill [facility] Adult Primary Care - [address] [phone] Tonja Alejandro PA-C [address] [place] [phone] Medications Refill; Medications Refill Social History [...] [facility] - [address] 289081 Carrington Calderon MD [address] [phone] 02/27/2024 8:30 EDT Telemedicine [facility] Sleep Program - [address] 905401 Dwight Colbert [address] [place] [address] [phone] 02/29/2024 10:30 EDT Appointment [facility] Radiology Nuclear Medicine and PET - [address] 186101 02/29/2024 14:30 EDT Appointment [facility] Radiology Nuclear Medicine and PET - [address] [address] 03/01/2024 8:00 EDT Appointment [facility] Radiology Nuclear Medicine and PET [address] [address] 03/01/2024 9:30 EDT Appointment [facility] Radiology Nuclear Medicine and PET [address] [address] documented as of this encounter Visit Diagnoses Not on filedocumented in this encounter Discontinued Medications Medication Sig Discontinue Reason Start Date End Da te gabapentin (NEURONTIN) 300 mg capsule Take 1 Cap by mouth daily. Take 1 cap in the evening. (In addition to 100mg gabapentin twice daily) Reorder 10/22/2020 12/04/2020 documented as of this encounter Care Teams Curling Machine Operator Relationship Specialty Start Date End Date Carrington Calderon MD 1 [facility] Level 1 [place] [address] PCP - General Internal Medicine - Primary Care 12/09/20 documented as of this encounter
--- OUTSIDE RECORDS SUMMARY | 2024-02-06 13:34 | XMS_ITS | Encounter Summary ---
Author Organization [facility] Address [address] [place] [address] Care Team Providers Care Auto Camp Attendant Name Role Phone Unavailable Primary Care Provider Unavailabl e Reason for Visit * Reason Onset Date Comments Medication Questions 10/09/2020 Encounter Details Date Type Department Care Team (Late st Contact Info) Description 10/09/2020 Telephone [facility] Adult Primary Care - [address] [phone] Tonja Alejandro PA-C [address] [place] [address] [address] [place] [phone] Medication Questions Social History Tobacco [...] Encounter - Tonja Alejandro PA-C - 10/21/2020 4442 EDT See previous notes. Spoke with patient [...] [facility] - [address] [phone] Carrington Calderon MD [address] [phone] 02/27/2024 8:30 EDT Telemedicine [facility] Sleep Program - [address] [address] Dwight Colbert [address] [place] [address] 02/29/2024 10:30 EDT Appointment [facility] Radiology Nuclear Medicine and PET - [address] [phone] 02/29/2024 14:30 EDT Appointment [facility] Radiology Nuclear Medicine and PET - [address] 387261 03/01/2024 8:00 EDT Appointment [facility] Radiology Nuclear Medicine and PET - [address] 154901 03/01/2024 9:30 EDT Appointment [facility] Radiology Nuclear [place] [address] documented as of this encounter Visit Diagnoses Not on filedocumented in this encounter
--- OUTSIDE RECORDS SUMMARY | 2024-02-06 13:34 | XMS_ITS | Encounter Summary ---
Author Organization [facility] Address [address] [place] [address] Care Team Providers Care Side Laster Tack Name Role Phone Unavailable Primary Care Provider Unavailabl e Encounter Details Date Type Department Care Team (Late st Contact Info) Description 10/10/2020 Orders Only [facility] Adult Primary Care - [address] [phone] Tonja Alejandro PA-C [address] [place] [address] [place] [phone] Social History Tobacco Use Types Packs/Day [...] Visit [facility] Adult Primary Care - [address] 981951 Carrington Calderon MD [address] [phone] 02/27/2024 8:30 EDT Telemedicine [facility] Sleep Program - [address] 162031 Dwight Colbert [address] [place] [address] [phone] 02/29/2024 10:30 EDT Appointment [facility] Radiology Nuclear Medicine and PET - [address] [phone] 02/29/2024 14:30 EDT Appointment [facility] Radiology Nuclear Medicine and PET - [address] [phone] 03/01/2024 8:00 EDT Appointment [facility] Radiology Nuclear Medicine and PET - [address] [phone] 03/01/2024 9:30 EDT Appointment [facility] Radiology Nuclear Medicine and PET [address] [phone] documented as of this encounter Visit Diagnoses Not on filedocumented in this encounter Discontinued Medications Medication Sig Discontinue Reason Start Date End Da te haloperidoL (HALDOL) 5 mg tablet Take 1 Tab by mouth daily as needed for Nausea. Alternate therapy 10/01/2020 10/10/2020 documented as of this encounter
--- OUTSIDE RECORDS SUMMARY | 2024-02-06 13:34 | XMS_ITS | Encounter Summary ---
Author Organization [facility] Address [address] [place] [address] Care Team Providers Care Newspaper Editor Name Role Phone Unavailable Primary Care Provider Unavailabl e Reason for Visit * Reason Onset Date Comments Prior Auth, Medication 10/23/2020 Encounter Details Date Type Department Care Team (Late st Contact Info) Description 10/23/2020 Telephone [facility] Adult Primary Care [address] [phone] Tonja Alejandro PA-C [address] [place] [address] [place] [phone] Prior Auth, Medication Social History Tobacco [...] Auth needed for Lidocaine 5% Patches Mejia: [id number] PA has been completed via [employer]. Awaiting decision Medication does not require a PA. Pharmacy notified documented in this encounter Plan of Treatment Upcoming Encounters Date Type Department Care Team (Late st Contact Info) Description 02/21/2024 9:45 EDT Office Visit [facility] Adult Primary Care [address] [address] Carrington Calderon MD 1 [facility] 1 [place] [address] 02/27/2024 8:30 EDT Telemedicine [facility] Sleep Program - [address] [address] Dwight Colbert [address] [place] [address] 02/29/2024 10:30 EDT Appointment [facility] Radiology Nuclear Medicine and PET - [address] [id number] 02/29/2024 14:30 EDT Appointment [facility] Radiology Nuclear Medicine and PET [address] 512581 03/01/2024 8:00 EDT Appointment [facility] Radiology Nuclear Medicine and PET - [address] 216241 03/01/2024 9:30 EDT [facility] Radiology Nuclear Medicine and PET [address] 525091 documented as of this encounter Visit Diagnoses Not on filedocumented in this encounter
--- OUTSIDE RECORDS SUMMARY | 2024-02-06 13:34 | XMS_ITS | Encounter Summary ---
Author Organization [facility] Address [address] [place] [address] Care Team Providers Care Pleating Machine Operator Name Role Phone Unavailable Primary Care Provider Unavailabl e Reason for Visit * Reason Onset Date Comments Medications Refill 10/01/2020 Encounter Details Date Type Department Care Team (Late st Contact Info) Description 10/01/2020 Refill [facility] Adult Primary Care - [address] [place] [address] [address] Tonja Alejandro PA-C [address] [place] [address] [place] [phone] Medications Refill Social History Tobacco Use [...] EDT Medication(s) Requested: metoclopramide HCI Preferred Pharmacy: [facility] #[id number] US RTE 7 Is patient out of [...] [facility] - [address] [place] [address] [phone] Carrington Calderon MD 1 [facility] 1 [place] [address] 02/27/2024 8:30 EDT Telemedicine [facility] Sleep Program - [address] 594991 Dwight Colbert [address] [place] [address] [phone] 02/29/2024 10:30 EDT Appointment [facility] Radiology Nuclear Medicine and PET - [address] [phone] 02/29/2024 14:30 EDT Appointment [facility] Radiology Nuclear Medicine and PET - [address] 637391 03/01/2024 8:00 EDT Appointment [facility] Radiology Nuclear Medicine and PET - [address] 906271 03/01/2024 9:30 EDT Appointment [facility] Radiology Nuclear Medicine and PET [address] [phone] documented as of this encounter Visit Diagnoses Not on filedocumented in this encounter
--- OUTSIDE RECORDS SUMMARY | 2024-02-06 13:34 | XMS_ITS | Encounter Summary ---
Author Organization [facility] Address [address] [place] [address] Care Team Providers Care Press Room Supervisor Name Role Phone Unavailable Primary [...] Visit [facility] Adult Primary Care - [address] [phone] Carrington Calderon MD 1 [facility] 1 [place] [phone] 02/27/2024 8:30 EDT Telemedicine [facility] Sleep Program - [address] [phone] Dwight Colbert [address] [place] [address] [phone] 02/29/2024 10:30 EDT Appointment [facility] Radiology Nuclear Medicine and PET - [address] [phone] 02/29/2024 14:30 EDT Appointment [facility] Radiology Nuclear Medicine and PET - [address] [address] 03/01/2024 8:00 EDT Appointment [facility] Radiology Nuclear Medicine and PET - [address] [address] 03/01/2024 9:30 EDT Appointment [facility] Radiology Nuclear Medicine and PET [address] [address] documented as of this encounter Visit Diagnoses Not on filedocumented in this encounter
--- OUTSIDE RECORDS SUMMARY | 2024-02-06 13:34 | XMS_ITS | Encounter Summary ---
Author Organization [facility] Address [address] [place] [address] Care Team Providers Care Supervisor Major Appliance Assembly Name Role Phone Unavailable Primary Care Provider [...] 11:05 EDT - 10/01/2020 15:04 EDT Emergency [facility] Emergency Department - Main [place] [address] [place], [place] 705[address] Aubrey Javed, MARY [address] [place], [place] [phone] Non-intractable vomiting with nausea, unspecified vomiting type [...] hyperglycemia, with long-term current use of insulin ([facility]) Use 1 pen needle as directed 4 [...] or Self Custodial documented in this encounter ED Notes * Aubrey Javed PA-C - 10/01/2020 8300 EDT DOS: 10/01/2020 Chief Complaint Patient presents [...] hot showers, but 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 Patient [...] gotten relief with outpatient oral Haldol from [facility]. patient is currently not vomiting and tolerating p.o. intake. Although she is nervous about going home and having to come back, she agrees to try oral Haldol at home. She will continue to work on eliminating THC. We discussed the fact that this would probably have to be for several months before we would expect her symptoms to resolve if this is [facility]. She will return for uncontrolled symptoms. [...] the Emergency Department: Stable PCP: Tonja Alejandro [facility] Number of Diagnoses or Management Options [...] [facility] Adult Primary Care [address] [address] Carrington Calderon MD 1 [facility] 1 [place] [address] 02/27/2024 8:30 EDT Telemedicine [facility] Sleep Program - [address] 608651 Dwight Colbert [address] [place] [address] 02/29/2024 10:30 EDT Appointment [facility] Radiology Nuclear Medicine and [address] [phone] 02/29/2024 14:30 EDT Appointment [facility] Radiology Nuclear Medicine and [address] [phone] 03/01/2024 8:00 EDT Appointment [facility] Radiology Nuclear Medicine and [address] 444001 03/01/2024 9:30 EDT Appointment [facility] Radiology Nuclear Medicine and [address] [address] documented as of this encounter Procedures Procedure Name Priority Date/Time Associated Diagnosis Comments COMPLETE BLOOD COUNT AND DIFFERENTIAL STAT 10/01/2020 11:51 EDT BASIC METABOLIC PANEL (BMP) STAT 10/01/2020 11:51 EDT POCT GLUCOSE, INTERFACED Routine 10/01/2020 11:14 EDT documented in this encounter Results * (ABNORMAL) COMPLETE BLOOD COUNT AND DIFFERENTIAL (10/01/2020 11:51 EDT) [facility] Signature WBC 14.04(H) 4.00 - 12.40 K/cmm 10/01/2020 12:28 EDT [facility] RBC 4.42 3.86 - 5.04 M/cmm 10/01/2020 12:28 [facility] Hemoglobin 14.1 11.6 - 15.2 gm/dL 10/01/2020 12:28 [facility] HCT 38.2 34.9 - 44.4 % 10/01/2020 12:28 [facility] MCV 86 81 - 98 fl 10/01/2020 12:28 [facility] MCH 31.9 26.7 - 33.3 pg 10/01/2020 12:28 [facility] MCHC 36.9(H) 32.1 - 35.9 gm/dL 10/01/2020 12:28 [facility] RDW-CV 12.4 <14.7 % 10/01/2020 12:28 [facility] RDW-SD 39.3 <50.4 fl 10/01/2020 12:28 [facility] PLT 380(H) 141 - 377 K/cmm 10/01/2020 12:28 [facility] MPV 9.6 9.5 - 12.7 fl 10/01/2020 12:28 [facility] % Neutrophils 71.0 % 10/01/2020 12:28 [facility] % Lymphocytes 21.1 % 10/01/2020 12:28 [facility] % Monocytes 6.9 % 10/01/2020 12:28 [facility] % Eosinophils 0.2 % 10/01/2020 12:28 [facility] % Basophils 0.4 % 10/01/2020 12:28 [facility] % Immature Grans 0.4 % 10/02/19 12:28 [facility] Absolute Neutrophils 9.97(H) 2.20 - 8.85 K/cmm 10/01/2020 12:28 [facility] Absolute Lymphocytes 2.96 1.09 - 3.30 K/cmm 10/01/2020 12:28 [facility] Absolute Monocytes 0.97(H) 0.10 - 0.80 K/cmm 10/01/2020 12:28 [facility] Absolute Eosinophils 0.03 0.03 - 0.61 K/cmm 10/01/2020 12:28 [facility] ABS Basophils 0.06 0.01 - 0.11 K/cmm 10/01/2020 12:28 [facility] Absolute Immature Grans 0.05 0.00 - 0.06 K/cmm 10/01/2020 12:28 [facility] Type of Differential: Auto 10/01/2020 12:28 [facility] Blood VENOUS BLOOD / Unknown Venipuncture / Unknown 10/01/2020 11:51 EDT 10/01/2020 11:57 EDT Aubrey Javed PA-C PACKAGES & DNA PROBE ORDERABLES [facility] [address] [place] [address] * (ABNORMAL) BASIC METABOLIC PANEL (BMP) (10/01/2020 11:51 EDT) Sodium 138 136 - 145 mEq/L 10/01/2020 12:23 [facility] Potassium 3.5 3.5 - 5.0 mEq/L 10/01/2020 12:23 [facility] Chloride 98 96 - 110 mEq/L 10/01/2020 12:23 [facility] CO2 Total 27 22 - 32 mEq/L 10/01/2020 12:23 [facility] Glucose 218(H) 70 - 100 mg/dL 10/01/2020 12:23 [facility] Calcium 9.4 8.5 - 10.5 mg/dL 10/01/2020 12:23 [facility] Calculated Calcium 9.3 8.5 - 10.5 mg/dL 10/01/2020 12:23 [facility] BUN 13 10 - 26 mg/dL 10/01/2020 12:23 EDT [facility] Creatinine 0.52 0.52 - 1.04 mg/dL 10/01/2020 12:23 EDT [facility] eGFR 124 >60 mL/min/1.7 3m2 10/01/2020 12:23 EDT [facility] Comment:eGFR calculated gil curtis CKD-EPI equation for non- Americans. Multiply eGFR by 1.16 for patients. Blood VENOUS BLOOD / Unknown Venipuncture / Unknown 10/01/2020 11:51 EDT 10/01/2020 11:57 EDT Aubrey Javed PA-C CHEMISTRY & BLOOD GA S ORDERABLES Performing Organization Address [facility] Co de Phone Number [facility] [address] [place] [address] * (ABNORMAL) POCT GLUCOSE, INTERFACED (10/01/2020 11:14 EDT) [facility] Signature Glucose, POC 167(H) 70 - 100 mg/dL 10/01/2020 11:15 EDT [facility] applied marine physics professor ID [id number] 10/01/2020 11:15 EDT [facility] HN LAB POC COMMENT (GLUCOSE) Test Performed by Nursing Services 10/01/2020 11:15 EDT [facility] Blood CAPILLARY BLOOD / Unknown 10/01/2020 11:14 EDT 10/01/2020 11:15 EDT Aubrey Javed PA-C POINT OF CARE TEST O RDERABLES Performing Organization Address [facility] Co de Phone Number [facility] [address] [place] [address] documented in this encounter Visit Diagnoses Diagnosis [...]
--- OUTSIDE RECORDS SUMMARY | 2024-02-06 13:34 | XMS_ITS | Encounter Summary ---
Author Organization [facility] Address [address] [place] [id number] Care Team Providers Care Child'S Nurse Name Role Phone Unavailable Primary Care Provider Unavailabl e Reason for Visit * Reason Comments Dehydration needs rehydration an d nausea meds per PCP Encounter Details Date Type Department Care Team (Latest Contact Info) Description 11/20/2020 9:58 EDT - 11/20/2020 12:29 EDT Hospital Encounter [facility] - [address] [address] Fran Blanco MD [address] [place] [phone] Nausea and vomiting, intractability of vomiting [...] through Care Everywhere. * Nausea and Vomiting (Palestinian) documented in this encounter Medications at Time of Discharge Medication Sig Dispensed Refills Start Date End Date acetaminophen (TYLENOL) 325 mg tablet Take 2 Tabs by mouth every 4 hours as needed for Pain. 08/20/2020 blood glucose meter One Touch Verio Flex meter. 1 Each 10/04/2019 12/21/2021 blood glucose test strips Brand: [employer] Precision Cristo, use as directed if Freestyle [...] hyperglycemia, with long-term current use of insulin ([facility]) Use 1 pen needle as directed [...] Ketones, UA 3+ (AA) Negative mg/dL Specific [place], Urine 1.025 1.001 - 1.035 Blood, UA [...] or constipation. She's been in her usual palaciose of health prior to this. No URI [...] 0 ??? blood glucose test strips Brand: [employer] Precision Cristo, use as directed if Freestyle [...] VIGNESH 2 READER) misc 1 Device by [facility] (non-drug; comboroute) route continuous. 1 Each 0 ??? flash glucose sensor (FREESTYLE VIGNESH 2 SENSOR) kit 1 Device by [facility] (non- drug; combo route) route continuous. 6 [...] diabetes mellitus with left diabetic foot ulcer ([facility]) 05/03/2020 ??? Osteomyelitis of great toe of left foot ([facility]) 03/12/2020 ??? Diabetic foot ulcer associated with diabetes mellitus due to underlying condition ([facility]) 03/07/2020 ??? Diabetic foot infection ([facility]) 03/06/2020 ??? Diabetic foot ulcer ([facility]) 03/06/2020 ??? Cellulitis of great toe of left foot 11/26/2019 ??? Chronic midline low back pain without sciatica 11/26/2019 ??? Chronic left ear pain 09/04/2015 ??? Gastroparesis 08/10/2020 SUSPECTED - still needs to be eval with gastric emptying study (as of 08/10/20) ??? Admission for sterilization 06/27/2020 Added automatically from request for surgery [id number] ??? Osteomyelitis of toe of left foot ([facility]) 06/05/2020 Added automatically from request for surgery [id number] ??? Type 2 diabetes mellitus with diabetic polyneuropathy, with long-term current use of insulin ([facility]) 06/05/2020 Added automatically from request for surgery [id number] ??? Family history of rheumatoid arthritis 09/04/2015 Mother, pt with chronic back pain. Told arthritis in spine in teen yrs. ??? Type 2 diabetes mellitus ([facility]) 09/03/2015 Dx approx age 25. Controlled with lifestyle behaviors, wt loss. Had taken lantus in past 80u, Followed by endocrine in [facility]. Stopped few yrs ago until this past month. ??? Anxiety and depression 05/12/2010 Onset teen yrs. Treated with citalopram in approx 2012 - had SI, treated at [place]. Marijuana prn to help with stress/anxiety sx. [...] has a referral for therapy. ??? Diabetes ([facility]) A1c 10.3 on 11/28/2019 - poorly controlled ??? Diabetes mellitus, type 2 ([facility]) pt check blood sugars at home- [...] vomiting occasionally ??? Obesity, unspecified ??? Osteomyelitis ([facility]) of left great toe-s/p amputation ??? [...] of further medications. Upon departure from [facility], the patient's pain was 0 on a zero to ten scale. Any further pain treatment will be at the discretion of the provider following up with the patient based on their clinical assessment . Condition at departure from the [facility] : Stable MDM 11/20/2020 17:40 [...] has a referral for therapy. ??? Diabetes ([facility]) A1c 10.3 on 11/28/2019 - poorly controlled ??? Diabetes mellitus, type 2 ([facility]) pt check blood sugars at home- [...] [facility] - [address] [phone] Carrington Calderon MD [address] [phone] 02/27/2024 8:30 EDT Telemedicine [facility] - [address] [phone] Dwight Colbert [address] [place] [phone] 02/29/2024 10:30 EDT Appointment [facility] Radiology Nuclear Medicine and PET - [address] [phone] 02/29/2024 14:30 EDT Appointment [facility] Radiology Nuclear Medicine and PET - [address] [id number] 03/01/2024 8:00 EDT Appointment [facility] Radiology Nuclear Medicine and PET - [address] [id number] 03/01/2024 9:30 EDT Appointment [facility] Radiology Nuclear Medicine and PET - [address] [address] documented as of this encounter Procedures Procedure [...] laboratory if clinically indicated. 11/21/2020 12:11 EDT [facility] Urine URINE SPECIMEN COLLECTION, CLEAN CATCH / Unknown Urine Collect / Unknown 11/20/2020 11:48 EDT 11/20/2020 12:45 EDT Fran Blanco MD MICROBIOLOGY - G ENERAL ORDERABLES Performing Organization Address [facility] de Phone Number [facility] [address] [place] [address] * (ABNORMAL) URINE SEDIMENT (MICRO) WITH REFLEX TO CULTURE (11/20/2020 11:48 EDT) Urine RBC Count, Auto 3 - 10(A) 0 - 2 Cells/HPF 11/20/2020 12:45 EDT [facility] Urine WBC Count, Auto 11 - 50(A) 0 - 3 Cells/HPF 11/20/2020 12:45 EDT [facility] Urine Squamous Count, Auto Many(A) None Seen Cells/HPF 11/20/2020 12:45 EDT [facility] Urine Hyaline Cast Count, Auto <=10 <=10 Casts/LPF 11/20/2020 12:45 EDT [facility] Urine Bacteria Count, Auto Moderate(A ) None Seen Bacteria/H PF 11/20/2020 12:45 EDT [facility] Urine URINE SPECIMEN COLLECTION, CLEAN CATCH / Unknown Urine Collect / Unknown 11/20/2020 11:48 EDT 11/20/2020 12:25 EDT Narrative [facility] - 11/20/2020 12:45 EDT A Urine Culture test has been reflexively ordered based on result criteria from the Urine Sediment Analysis. Urine Sediment Analysis results are unreliable on urines that are unrefrigerated for >2 hrs or refrigerated >8 hrs. Fran Blanco MD URINALYSIS ORDER [place] Performing Organization Address [facility] Co de Phone Number [facility] [address] [place] [address] * POCT CSN BARCODE URINE DIPSTICK (11/20/2020 11:47 EDT) Urine URINE SPECIMEN COLLECTION, CLEAN CATCH / Unknown Urine Collect / Unknown 11/20/2020 11:47 EDT 11/20/2020 11:47 EDT Fran Blanco MD LAB INFO SERVICE AND SUPPORT & PHONE RESULT Performing Organization Address [facility]/ZIP Co de Phone Number [facility] [address] [place] [address] * (ABNORMAL) POCT URINE DIPSTICK, CLINITEK (11/20/2020 11:44 EDT) Color, UA Yellow Yellow 11/20/2020 11:46 T [facility] Clarity, UA Cloudy(A) Clear 11/20/2020 11:46 EDT [facility] Glucose, UA 2+(A) Negative mg/dL 11/20/2020 11:46 T [facility] Bilirubin, UA Negative Negative 11/20/2020 11:46 T [facility] Ketones, UA 3+(AA) Negative mg/dL 11/20/2020 11:46 T [facility] Specific [place], Urine 1.025 1.001 - 1.035 11/20/2020 11:46 T [facility] Blood, UA Trace(A) Negative 11/20/2020 11:46 [facility] pH, UA 7.0 <=8 11/20/2020 11:46 T [facility] Protein, UA 1+(A) Negative mg/dL 11/20/2020 11:46 T [facility] Urobilinogen, UA 0.2 0.2 - 1.0 EU/dL 11/20/2020 11:46 T [facility] Nitrite, UA Negative Negative 11/20/2020 11:46 T [facility] Leuk Esterase Negative Negative 11/20/2020 11:46 T [facility] HN LAB COMMENT (CLINITEK, UR) Test performed at Urgent Care 11/20/2020 11:46 T [facility] Urine URINE SPECIMEN COLLECTION, CLEAN CATCH / Unknown 11/20/2020 11:44 EDT 11/20/2020 11:46 EDT Fran Blanco MD POINT OF CARE TE ST ORDERABLES [facility] [address] [place] [address] * (ABNORMAL) COMPLETE BLOOD COUNT AND DIFFERENTIAL (11/20/2020 10:35 EDT) WBC 14.78(H) 4.00 - 12.40 K/cmm 11/20/2020 11:51 [facility] RBC 4.65 3.86 - 5.04 M/cmm 11/20/2020 11:51 [facility] Hemoglobin 14.1 11.6 - 15.2 gm/dL 11/20/2020 11:51 [facility] HCT 40.7 34.9 - 44.4 % 11/20/2020 11:51 [facility] MCV 88 81 - 98 fl 11/20/2020 11:51 [facility] MCH 30.3 26.7 - 33.3 pg 11/20/2020 11:51 [facility] MCHC 34.6 32.1 - 35.9 gm/dL 11/20/2020 11:51 [facility] RDW-CV 12.5 <14.7 % 11/20/2020 11:51 [facility] RDW-SD 39.7 <50.4 fl 11/20/2020 11:51 [facility] PLT 385(H) 141 - 377 K/cmm 11/20/2020 11:51 [facility] MPV 10.2 9.5 - 12.7 fl 11/20/2020 11:51 [facility] % Neutrophils 84.6 % 11/20/2020 11:51 [facility] % Lymphocytes 10.4 % 11/20/2020 11:51 [facility] % Monocytes 4.3 % 11/20/2020 11:51 [facility] % Eosinophils 0.0 % 11/20/2020 11:51 [facility] % Basophils 0.2 % 11/20/2020 11:51 [facility] % Immature Grans 0.5 % 11/21/19 11:51 [facility] Absolute Neutrophils 12.51(H) 2.20 - 8.85 K/cmm 11/20/2020 11:51 [facility] Absolute Lymphocytes 1.53 1.09 - 3.30 K/cmm 11/20/2020 11:51 [facility] Absolute Monocytes 0.64 0.10 - 0.80 K/cmm 11/20/2020 11:51 [facility] Absolute Eosinophils 0.00(L) 0.03 - 0.61 K/cmm 11/20/2020 11:51 [facility] ABS Basophils 0.03 0.01 - 0.11 K/cm 11/20/2020 11:51 [facility] Absolute Immature Grans 0.07(H) 0.00 - 0.06 K/cmm 11/20/2020 11:51 [facility] Type of Differential: Auto 11/20/2020 11:51 [facility] Blood VENOUS BLOOD / Unknown Venipuncture / Unknown 11/20/2020 10:35 EDT 11/20/2020 11:37 EDT Fran Blanco MD PACKAGES & DNA P ROBE ORDERABLES [facility] [address] [place] [address] * (ABNORMAL) COMPREHENSIVE METABOLIC PANEL (CMP) (11/20/2020 10:35 EDT) Sodium 143 136 - 145 mEq/L 11/20/2020 12:01 [facility] Potassium 4.0 3.5 - 5.0 mEq/L 11/20/2020 12:01 [facility] Chloride 97 96 - 110 mEq/L 11/20/2020 12:01 [facility] CO2 Total 28 22 - 32 mEq/L 11/20/2020 12:01 [facility] Glucose 307(H) 70 - 100 mg/dL 11/20/2020 12:01 [facility] BUN 12 10 - 26 mg/dL 11/20/2020 12:01 [facility] Creatinine 0.49(L) 0.52 - 1.04 mg/dL 11/20/2020 12:01 [facility] eGFR 127 >60 mL/min/1.7 3m2 11/20/2020 12:01 [facility] Comment:eGFR calculated gil curtis CKD-EPI equation for non- Americans. Multiply eGFR by 1.16 for patients. Total Protein 7.6 6.3 - 8.2 g/dL 11/20/2020 12:01 [facility] Albumin 4.6 3.4 - 4.9 g/dL 11/20/2020 12:01 [facility] Alkaline Phosphatase 113 38 - 126 U/L 11/20/2020 12:01 [facility] AST 23 15 - 46 U/L 11/20/2020 12:01 [facility] ALT 21 <35 U/L 11/20/2020 12:01 [facility] Bilirubin, Total <0.5 <1.4 mg/dL 11/21/19 21 12:01 [facility] Calcium 10.3 8.5 - 10.5 mg/dL 11/20/2020 12:01 [facility] Calculated Calcium 9.8 8.5 - 10.5 mg/dL 11/20/2020 12:01 [facility] Blood VENOUS BLOOD / Unknown Venipuncture / Unknown 11/20/2020 10:35 EDT 11/20/2020 11:37 EDT Fran Blanco MD CHEMISTRY & BLOO D GAS ORDERABLES [facility] [address] [place] [address] documented in this encounter Visit Diagnoses Diagnosis [...]
--- OUTSIDE RECORDS SUMMARY | 2024-02-06 13:35 | XMS_ITS | Encounter Summary ---
Author Organization [facility] Address [address] [place] [address] Care Team Providers Care [employer] Academic [employer] Name Role Phone Unavailable Primary Care Provider Unavailabl e Reason for Referral * Radiology Services (Routine) - Closed Specialty Diagnoses / Procedures Referred By Kit goode Referred To Contact Nuclear Medicine Diagnoses Generalized abdominal pain Emesis, persistent Type 2 diabetes mellitus with hyperosmolarity without coma, with long-term current use of insulin ([facility]) Procedures NM GASTRIC EMPTYING SOLID Broderick Irene MD [address] [place] [address] Referral ID Status Reason Start Date Expiration Date Visits Re quested Visits Authorized [id number] Closed 08/10/2020 1 1 Reason for Visit * Radiology Services (Routine) - Closed Specialty Diagnoses / Procedures [facility] Referred To Contact Nuclear Medicine Diagnoses Generalized abdominal pain Emesis, persistent Type 2 diabetes mellitus with hyperosmolarity without coma, with long-term current use of insulin ([facility]) Procedures NM GASTRIC EMPTYING SOLID Broderick Irene MD [address] [place] [address] Referral ID Status Reason Start Date Expiration Date Visits Re quested Visits Authorized [id number] Closed 08/10/2020 1 1 Encounter Details Date Type Department Care Team (Latest Contact Info) Description 09/09/2020 8:27 EDT - 09/09/2020 23:59 EDT Hospital Encounter [facility] Radiology Nuclear Medicine and PET - [address] [address] Generalized abdominal pain; Emesis, persistent; Type 2 diabetes mellitus with hyperosmolarity without coma, with long-term current use of insulin ([facility]) Discharge Disposition: Home or Self Care Social [...] of insulin ([facility]) Use 1 pen needle as directed 4 [...] [facility] - [address] [address] Carrington Calderon MD [address] [phone] 02/27/2024 8:30 EDT Telemedicine [facility] Sleep [facility] - [address] [phone] Dwight Coblert [address] [place], [place] [phone] 02/29/2024 10:30 EDT Appointment [facility] Radiology Nuclear Medicine and PET - [address] [address] 02/29/2024 14:30 EDT Appointment [facility] Radiology Nuclear Medicine and PET [address] [address] 03/01/2024 8:00 EDT Appointment [facility] Radiology Nuclear Medicine and PET [address] [address] 03/01/2024 9:30 EDT Appointment [facility] Radiology Nuclear Medicine and PET [address] [address] documented as of this encounter Procedures Procedure Name Priority Date/Time Associated Diagnosis Comments NM GASTRIC EMPTYING SOLID Routine 09/09/2020 15:05 EDT Generalized abdominal pain Emesis, persistent Type 2 diabetes mellitus with hyperosmolarity without coma, with long-term current use of insulin ([facility]) POCT GLUCOSE, INTERFACED Routine 09/09/2020 8:47 EDT documented in this encounter Results * NM GASTRIC EMPTYING SOLID (09/09/2020 15:05 EDT) Anatomical Region Laterality Modality Body Nuclear Medicine 09/09/2020 16:1 0 EDT Impressions 09/09/2020 16:10 EDT Delayed gastric emptying for solid food. References: Manny et al. [employer] Journal of Gastroenterology 2000. Kev et al. Gastroenterology 2006 Roshni et al. [employer] Journal of Gastroenterology 2006. Narrative 09/09/2020 16:10 [...] for solid food. References: Tougas et al. [employer] Journal of Gastroenterology 2000. Kev et al. Gastroenterology 2006 Roshni et al. [employer] Journal of Gastroenterology 2006. Broderick Irene MD [facility] ORDERABLES * (ABNORMAL) POCT GLUCOSE, INTERFACED (09/09/2020 8:47 EDT) [facility] Signature Glucose, POC 107(H) 70 - 100 mg/dL 09/10/2020 6:44 EDT [facility] dance director ID [id number] 09/10/2020 6:44 EDT [facility] HN LAB POC COMMENT (GLUCOSE) Test performed by Nuclear Medicine 09/10/2020 6:44 EDT [facility] Blood CAPILLARY BLOOD / Unknown 09/09/2020 8:47 EDT 09/10/2020 6:44 EDT Provider Unknown MD POINT OF CARE TEST O RDERABLES [facility] [address] [place] [address] documented in this encounter Visit Diagnoses Diagnosis Generalized abdominal pain Abdominal pain, generalized Emesis, persistent Persistent vomiting Type 2 diabetes mellitus with hyperosmolarity without coma, with long-term current use of insulin ([facility]) documented in this encounter Administered [...]
--- OUTSIDE RECORDS SUMMARY | 2024-02-06 13:35 | XMS_ITS | Encounter Summary ---
Author Organization [facility] Address [address] [place] [address] Care Team Providers Care Manager Performance Improvement Name Role Phone Unavailable Primary Care Provider [...] 7:17 EDT - 09/30/2020 12:44 EDT Emergency [facility] Emergency Department - Main [address] [phone] Doris Moreno MD [address] [facility], Level 1 [place] [address] Gastroparesis (Primary Dx); Non-intractable vomiting, [...] be sent through Care Everywhere. * Gastroparesis (Algerian) * Nausea and Vomiting (Algerian) documented in this encounter Medications at Time [...] FLORA 2 READER) mis 1 Device by [facility] (non-drug; combo route) route continuous. 1 Each [...] hyperglycemia, with long-term current use of insulin ([facility]) Use 1 pen needle as [...] or Self Fci documented in this encounter ED Notes * [...] exam for emergent medical conditions at the [facility] on 09/30/2020 Scribe attestation: This documentation is [...] Glucose, POC 316 (*) Final Tech ID [id number] Final HN LAB POC COMMENT (GLUCOSE) Test Performed by Nursing Services Final POCT BLOOD GAS, EG6 I-STAT - Abnormal pH, i-STAT 7.53 (*) Final pCO2, i-STAT 35 Final pO2, i-STAT 34 (*) Final TCO2, i-STAT 30 (*) Final O2 Saturation, i-STAT 74 (*) Final Base Excess, i-STAT 6 (*) Final Sample Source VENOUS Final Tech ID [id number] Final Comment (EG6) Final Value: Test Performed by Respiratory. For non-arterial reference ranges, please see ISTAT procedure POCT GLUCOSE, INTERFACED - Abnormal Glucose, POC 210 (*) Final Tech ID [id number] Final HN LAB POC COMMENT (GLUCOSE) Test Performed by Nursing Services Final POCT GLUCOSE, INTERFACED - Abnormal Glucose, POC 202 (*) Final Tech ID [id number] Final HN LAB POC COMMENT (GLUCOSE) Test [...] [facility] Adult Primary Care [address] [phone] Carrington Calderon MD [address] [phone] 02/27/2024 8:30 EDT Telemedicine [facility] Sleep Program - [address] [address] Dwight Colbert [address] [place] [phone] 02/29/2024 10:30 EDT Appointment [facility] Radiology Nuclear Medicine and PET [address] [id number] 02/29/2024 14:30 EDT Appointment [facility] Radiology Nuclear Medicine and PET [address] [phone] 03/01/2024 8:00 EDT Appointment [facility] Radiology Nuclear Medicine and PET [address] [id number] 03/01/2024 9:30 EDT Appointment [facility] Radiology Nuclear Medicine and PET [address] [phone] documented as of this encounter Procedures Procedure [...] EDT) 10/04/2020 16:2 9 EDT Scan 2 Facing Baster Jumpbasting PROCEDURE/MINOR BRAULIO GICAL ORDERABLES * (ABNORMAL) POCT GLUCOSE, INTERFACED (09/30/2020 11:30 EDT) Glucose, POC 202(H) 70 - 100 mg/dL 09/30/2020 11:31 EDT [facility] multi craft maintenance technician ID [id number] 09/30/2020 11:31 EDT [facility] HN LAB POC COMMENT (GLUCOSE) Test Performed by Nursing Services 09/30/2020 11:31 EDT [facility] Blood CAPILLARY BLOOD / Unknown 09/30/2020 11:30 EDT 09/30/2020 11:31 EDT Doris Moreno MD POINT OF CARE TEST O MARILIA Performing Organization Address City/[facility]/ZIP Co de Phone Number [facility] [address] [place] [address] * (ABNORMAL) POCT GLUCOSE, INTERFACED (09/30/2020 10:48 EDT) Glucose, POC 210(H) 70 - 100 mg/dL 09/30/2020 11:31 EDT [facility] multi craft maintenance technician ID [id number] 09/30/2020 11:31 EDT [facility] HN LAB POC COMMENT (GLUCOSE) Test Performed by Nursing Services 09/30/2020 11:31 EDT [facility] Blood CAPILLARY BLOOD / Unknown 09/30/2020 10:48 EDT 09/30/2020 11:31 EDT Doris Moreno MD POINT OF CARE TEST O MARILIA Performing Organization Address [facility] Co de Phone Number [facility] [address] [place] [address] * TROPONIN I (09/30/2020 8:55 EDT) Troponin I (ng/mL) <0.034 <0.034 ng/mL 09/30/2020 9:24 EDT [facility] Blood VENOUS BLOOD / Unknown Venipuncture / Unknown 09/30/2020 8:55 EDT 09/30/2020 8:58 EDT Narrative [facility] - 09/30/2020 9:24 EDT The results of this assay can be falsely lowered due to the consumption of Biotin. Doris Moreno MD CHEMISTRY & BLOOD GA S ORDERABLES Performing Organization Address City/[facility]/ZIP Co de Phone Number [facility] [address] [place] [address] * (ABNORMAL) BETA HYDROXYBUTYRATE (09/30/2020 8:45 EDT) Beta Hydroxybutyrate 0.7(H) <0.4 mmol/L 09/30/2020 9:14 EDT [facility] Blood VENOUS BLOOD / Unknown Venipuncture / Unknown 09/30/2020 8:45 EDT 09/30/2020 8:50 EDT Doris Moreno MD CHEMISTRY & BLOOD GA S ORDERABLES [facility] [address] [place] [address] * LIPASE (09/30/2020 8:45 EDT) Lipase 108 <251 U/L 09/30/2020 9:09 EDT [facility] Blood VENOUS BLOOD / Unknown Venipuncture / Unknown 09/30/2020 8:45 EDT 09/30/2020 8:50 EDT Doris Moreno MD CHEMISTRY & BLOOD GA S ORDERABLES Performing Organization Address [facility] Co de Phone Number [facility] [address] [place] [address] * (ABNORMAL) SCREENING GLUCOSE (09/30/2020 8:45 EDT) Glucose, Screening 268(H) 70 - 100 mg/dL 09/30/2020 9:10 EDT [facility] Comment:Elevated screening g lucose value greater than 180 mg/dl, please order follow up Hemoglobin A1C. Blood VENOUS BLOOD / Unknown Venipuncture / Unknown 09/30/2020 8:45 EDT 09/30/2020 8:50 EDT Doris Moreno MD CHEMISTRY & BLOOD GA S ORDERABLES Performing Organization Address City/[facility]/ZIP Co de Phone Number [facility] [address] [place] [address] * (ABNORMAL) MAGNESIUM (09/30/2020 8:45 EDT) Magnesium 1.6(L) 1.7 - 2.8 mg/dL 09/30/2020 9:09 EDT [facility] Blood VENOUS BLOOD / Unknown Venipuncture / Unknown 09/30/2020 8:45 EDT 09/30/2020 8:50 EDT Doris Moreno MD CHEMISTRY & BLOOD GA S ORDERABLES Performing Organization Address City/[facility] Co de Phone Number [facility] [address] [place] [address] * ELECTROLYTES (09/30/2020 8:45 EDT) Sodium 144 136 - 145 mEq/L 09/30/2020 9:09 EDT [facility] Potassium 4.0 3.5 - 5.0 mEq/L 09/30/2020 9:09 EDT [facility] Chloride 104 96 - 110 mEq/L 09/30/2020 9:09 EDT [facility] CO2 Total 24 22 - 32 mEq/L 09/30/2020 9:09 EDT [facility] Blood VENOUS BLOOD / Unknown Venipuncture / Unknown 09/30/2020 8:45 EDT 09/30/2020 8:50 EDT Doris Moreno MD CHEMISTRY & BLOOD GA S ORDERABLES Performing Organization Address [facility]/ZIP Co de Phone Number [facility] [address] [place] [address] * (ABNORMAL) CREATININE (09/30/2020 8:45 EDT) Creatinine 0.43(L) 0.52 - 1.04 mg/dL 09/30/2020 9:09 EDT [facility] eGFR 132 >60 mL/min/1.7 3m2 09/30/2020 9:09 EDT [facility] Comment:eGFR calculated gil curtis CKD-EPI equation for non- Americans. Multiply eGFR by 1.16 for patients. Blood VENOUS BLOOD / Unknown Venipuncture / Unknown 09/30/2020 8:45 EDT 09/30/2020 8:50 EDT Doris Moreno MD CHEMISTRY & BLOOD GA S ORDERABLES Performing Organization Address City/[facility]/ZIP Co de Phone Number [facility] [address] [place] [address] * BUN (09/30/2020 8:45 EDT) BUN 16 10 - 26 mg/dL 09/30/2020 9:09 EDT [facility] Blood VENOUS BLOOD / Unknown Venipuncture / Unknown 09/30/2020 8:45 EDT 09/30/2020 8:50 EDT Doris Moreno MD CHEMISTRY & BLOOD GA S ORDERABLES Performing Organization Address [facility] Co de Phone Number [facility] [address] [place] [address] * XR FOOT LEFT 1-2 VIEWS (09/30/2020 [...] 7:40 EDT) Hold Hold 09/30/2020 8:47 EDT [facility] Blood VENOUS BLOOD / Unknown Venipuncture / Unknown 09/30/2020 7:40 EDT 09/30/2020 7:45 EDT Doris Moreno MD LAB INFO SERVICE AND SUPPORT & PHONE RESULT [facility] [address] [place] [address] * (ABNORMAL) COMPLETE BLOOD COUNT AND DIFFERENTIAL (09/30/2020 7:40 EDT) WBC 15.61(H) 4.00 - 12.40 K/cmm 09/30/2020 8:01 EDT [facility] RBC 4.40 3.86 - 5.04 M/cmm 09/30/2020 8:01 [facility] Hemoglobin 13.7 11.6 - 15.2 gm/dL 09/30/2020 8:01 [facility] HCT 38.6 34.9 - 44.4 % 09/30/2020 8:01 [facility] MCV 88 81 - 98 fl 09/30/2020 8:01 [facility] MCH 31.1 26.7 - 33.3 pg 09/30/2020 8:01 [facility] MCHC 35.5 32.1 - 35.9 gm/dL 09/30/2020 8:01 [facility] RDW-CV 12.6 <14.7 % 09/30/2020 8:01 [facility] RDW-SD 40.1 <50.4 fl 09/30/2020 8:01 [facility] PLT 391(H) 141 - 377 K/cmm 09/30/2020 8:01 [facility] MPV 10.0 9.5 - 12.7 fl 09/30/2020 8:01 [facility] % Neutrophils 87.2 % 09/30/2020 8:01 [facility] % Lymphocytes 9.6 % 09/30/2020 8:01 [facility] % Monocytes 2.6 % 09/30/2020 8:01 [facility] % Eosinophils 0.0 % 09/30/2020 8:01 [facility] % Basophils 0.2 % 09/30/2020 8:01 [facility] % Immature Grans 0.4 % 10/01/19 8:01 [facility] Absolute Neutrophils 13.61(H) 2.20 - 8.85 K/cmm 09/30/2020 8:01 [facility] Absolute Lymphocytes 1.50 1.09 - 3.30 K/cmm 09/30/2020 8:01 [facility] Absolute Monocytes 0.41 0.10 - 0.80 K/cmm 09/30/2020 8:01 [facility] Absolute Eosinophils 0.00(L) 0.03 - 0.61 K/cmm 09/30/2020 8:01 [facility] ABS Basophils 0.03 0.01 - 0.11 K/cmm 09/30/2020 8:01 [facility] Absolute Immature Grans 0.06 0.00 - 0.06 K/cmm 09/30/2020 8:01 [facility] Type of Differential: Auto 09/30/2020 8:01 [facility] Blood VENOUS BLOOD / Unknown Venipuncture / Unknown 09/30/2020 7:40 EDT 09/30/2020 7:45 EDT Doris Moreno MD PACKAGES & DNA PROBE ORDERABLES Performing Organization Address City/State/[facility] Co de Phone Number [facility] [address] [place] [phone] * (ABNORMAL) POCT BLOOD GAS, EG6 I-STAT (09/30/2020 7:34 EDT) iSTAT pH 7.53(H) 7.35 - 7.45 09/30/2020 7:38 [facility] iSTAT pCO2 35 35 - 45 mmHg 09/30/2020 7:38 [facility] i-STAT pO2 34(L) 80 - 105 mmHg 09/30/2020 7:38 [facility] iSTAT TCO2 30(H) 23 - 27 mmol/L 09/30/2020 7:38 [facility] i-STAT O2 Saturation 74(L) 95 - 98 % 09/30/2020 7:38 [facility] Base Excess 6(H) -2 - 3 mmol/L 09/30/2020 7:38 [facility] Sample Source VENOUS 09/30/2020 7:38 [facility] multi craft maintenance technician ID [id number] 09/30/2020 7:38 [facility] Comment (EG6) Test Performed by Respiratory. For non-arterial reference ranges, please see ISTAT procedure 09/30/2020 7:38 EDT [facility] Comment:For arterial collect ion, [...] MD POINT OF CARE TEST O RDERABLES [facility] [address] [place] [address] * EKG 12-LEAD (09/30/2020 7:29 EDT) 09/30/2020 7:29 EDT Narrative [facility] EKG - 10/04/2020 16:24 EDT ?[facility] Emergency ? Test Date: ?2020-09-30 Pat Name: ? CRISTY LUO ?Department: ?? ED ? Room: ? AC17 Gender: ? Female ? Carpenter Supervisor: ?? [id number] : ?1985 ? Requested By: DIAN Soto: [id number] ? Reading MD: ?? CAROLINA NOYOLA MD ? Measurements Intervals ?[place] ? Rate: ? 70 ? P: ?36 MI: ? 139 ?QRS: ?10 QRSD: ? 88 [...] Note Carolina Noyola MD - 10/04/2020 [facility] Emergency Test Date: 2020-09-30 Pat Name: CRISTY KAREEM Department: ED Room: [facility] Gender: Female Carpenter Supervisor: [id number] : 1985 Requested By: DIAN Huizar Order Number: [id number] Reading MD: CAROLINA NOYOLA MD Measurements Intervals [place] Rate: 70 P: 36 MI: 139 QRS: 10 QRSD: 88 T: 3 QT: 418 QTc: 452 Interpretive Statements SINUS RHYTHM WITH MARKED SINUS ARRHYTHMIA Compared to ECG 08/08/2020 19:04:21 SINUS ARRHYTHMIA now present I reviewed the tracing and have either agreed or edited the findings inthis report. Electronically Signed On 10-04-2020 16:24:06 EDT by CAROLINA RICHTER. Doris Moreno MD CARDIAC ECG ORDERABL ES Performing Organization Address City/[facility]/ZIP Co de Phone Number [facility] EKG * (ABNORMAL) POCT GLUCOSE, INTERFACED (09/30/2020 7:25 EDT) Glucose, POC 316(H) 70 - 100 mg/dL 09/30/2020 7:29 EDT [facility] multi craft maintenance technician ID [id number] 09/30/2020 7:29 EDT [facility] HN LAB POC COMMENT (GLUCOSE) Test Performed by Nursing Services 09/30/2020 7:29 EDT [facility] Blood CAPILLARY BLOOD / Unknown 09/30/2020 7:25 EDT 09/30/2020 7:29 EDT Doris Moreno MD POINT OF CARE TEST O RDERABLES Performing Organization Address City/[facility]/ZIP Co de Phone Number [facility] [address] [place] [address] documented in this encounter Visit Diagnoses Diagnosis [...]
--- OUTSIDE RECORDS SUMMARY | 2024-02-06 13:35 | XMS_ITS | Encounter Summary ---
Author Organization [facility] Address [address] [place] [address] Care Team Providers Care Graduate Student Instructor Name Role Phone Unavailable Primary Care Provider Unavailabl e Reason for Referral * (Routine) - Receiving Office to Obtain Authorization Specialty Diagnoses / Procedures Referred By Contac t Referred To Contact [facility] [place] [address] [place], [place] [id number] Referral ID Status Reason Start Date Expiration Date Visits Requested Visits Authorized [id number] Receiving Office to Obtain Authorization Specialty Services Required 1 1 1 * (Routine) - Receiving Office to Obtain Authorization Specialty Diagnoses / Procedures Referred By Contac t Referred To Contact [facility] [place] [address] [place], [place] [address] Referral ID Status Reason Start Date Expiration Date Visits Requested Visits Authorized [id number] Receiving Office to Obtain Authorization Specialty Services [...] Referred To Contact Diagnoses Unwanted fertility Procedures IL LAP,RMV ADNEXAL STRUCTURE Nimisha Bay MD [facility] Medical Office Building, [address] [place] [phone] Referral ID Status Reason Start Date Expiration Date Visits Re quested Visits Authorized [id number] 06/30/2020 1 1 Encounter Details Date Type Department Care Team (Latest Contact Info) Description 08/20/2020 9:59 EDT - 08/20/2020 15:35 EDT Hospital Encounter [facility] [place] [address] [place] [phone] Nimisha Bay MD [address] [place] [address] Medical Office Building, [address] [place] [phone] Discharge Disposition: Home or Self Care [...] Code Departure Means Destination Home or Self Longterm documented in this encounter Progress Notes * [...] 08/18/2020 14:27 PGY-4 Obstetrics and Gynecology Pager #[phone] documented in this encounter H&P Notes * [...] Egan D.O. 07/28/2020 11:05 Obstetrics/Gynecology PGY-1 Pager #[phone] documented in this encounter [place] Notes * [place] Surgeon - Nimisha Bay MD - 08/20/2020 1436 EDT Name: Cristy Luo :1985 Date of Service:@08/20/2020?? Surgeon: Dr. Nimisha Bay Broke Beater:Tonja Egan D.O., Jackie Oropeza M.D. Procedure: Laparoscopy [...] Egan D.O. 08/20/2020 15:22 Obstetrics/Gynecology PGY-1 Pager #[phone] ?? Attending note: I was present for the entire procedure. No complications. Nimisha Bay MD ? documented in this encounter Plan of Treatment Upcoming Encounters Date Type Department Care Team (Late st Contact Info) Description 02/21/2024 9:45 EDT Office Visit [facility] Adult Primary Care - [address] [phone] Carrington Calderon MD [address] [phone] 02/27/2024 8:30 EDT Telemedicine [facility] Sleep Program - [address] [phone] Dwight Colbert [address] [place] [phone] 02/29/2024 10:30 EDT Appointment [facility] Radiology Nuclear Medicine and PET - [address] [phone] 02/29/2024 14:30 EDT Appointment [facility] Radiology Nuclear Medicine and PET [address] [phone] 03/01/2024 8:00 EDT Appointment [facility] Radiology Nuclear Medicine and PET [address] [phone] 03/01/2024 9:30 EDT Appointment [facility] Radiology Nuclear Medicine and PET - [address] [address] Scheduled Referrals Name Type Priority Associated Diagnoses [...] dimension); full cross sections identified. 08/29/2020 7:12 [facility] Attestation There was significant resident/fellow involvement in the diagnostic evaluation of this case. By the signature below, the attending physician certifies that they have personally conducted a gross and/or microscopic examination of the described specimens and rendered or confirmed the above diagnosis. 08/29/2020 7:12 [facility] at 0712 Clinical History Unwanted fertility 08/29/2020 7:12 [facility] Gross Description A. [...] spear. Sectioning reveals patent, unremarkable cut surfaces. Wall Taper sections, to include the bisected fimbria, are submitted in A1 (shorter tube) and A2 (longer tube). EUNICE BAEZ(ASCP) 08/21/2020 9:18 08/29/2020 7:12 EDT [facility] Resident/Cash w: John Smith MD 08/29/2020 7:12 EDT [facility] Performing Lab [facility] 08/29/2020 7:12 EDT [facility] Scanned Images 08/29/2020 7:12 EDT [facility] Tissue BOTH FALLOPIAN TUBES / Unknown 08/20/2020 13:15 EDT 08/20/2020 15:16 EDT Nimisha Bay MD PATHOLOGY ORDERABLE S Performing Organization Address [facility] Co de Phone Number [facility] [address] [place] [address] * (ABNORMAL) POCT GLUCOSE, INTERFACED (08/20/2020 11:26 EDT) Glucose, POC 119(H) 70 - 100 mg/dL 08/20/2020 11:26 EDT [facility] tonal regulator ID [id number] 08/20/2020 11:26 EDT [facility] HN LAB POC COMMENT (GLUCOSE) Test Performed by Nursing Services 08/20/2020 11:26 EDT [facility] Blood CAPILLARY BLOOD / Unknown 08/20/2020 11:26 EDT 08/20/2020 11:26 EDT Whit Rae MD POINT OF CARE TEST O RDERABLES Performing Organization Address City/[facility]/ZIP Co de Phone Number [facility] [address] [place] [address] * TEST, URINE (08/20/2020 10:42 EDT) Test, Urine Negative Negative 08/20/2020 10:59 EDT [facility] Comment:False negative resul ts may occur in women who are beyond 5-8 weeks gestation. Diagnosis of should be based on a correlation of test results with typical clinical signs and symptoms. Urine VOIDED URINE SPECIMEN / Unknown Urine Collect / Unknown 08/20/2020 10:42 EDT 08/20/2020 10:46 EDT Whit Rae MD URINALYSIS ORDERABLE S [facility] [address] [place] [address] documented in this encounter Visit Diagnoses Diagnosis [...] in this encounter Orders Medications Ordered That Stna ht Not Have Been Administered Count Last [...]
--- OUTSIDE RECORDS SUMMARY | 2024-02-06 13:35 | XMS_ITS | Encounter Summary ---
Author Organization [facility] Address [address] [place] [address] Care Team Providers Care Stripper Black And White Name Role Phone Unavailable Primary Care Provider Unavailabl e Reason for Visit * Reason Comments Post-OP Follow Up Encounter Details Date Type Department Care Team (Late st Contact Info) Description 09/04/2020 16:15 EDT Post-op Visit [facility] Women's Services [address] [address] [place] [address] [place] [phone] Dysuria (Primary Dx) [...] 1615 EDT Department of Obstetrics and Gynecology [facility] CC: Postop follow-up Procedure: Laparoscopic bilateral [...] established with PCP but 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 Alfonso. Clarke Joseph MD Obstetrics and Gynecology, PGY-2 Pager #[phone] 09/04/20 16:35 * Cristy Alfonso MD MPH - 09/04/2020 2285 EDT Attestation statement: I discussed the patient with the resident/fellow at the time of the visit. Iagree with the findings and the plan of care documented in the resident's/fellow's note. documented in this encounter Plan of Treatment Upcoming Encounters Date Type Department Care Team (Late st Contact Info) Description 02/21/2024 9:45 EDT Office Visit [facility] Adult Primary Care - [address] 639131 Carrington Calderon MD [address] [phone] 02/27/2024 8:30 EDT Telemedicine [facility] Sleep Program - [address] [phone] Dwight Colbert [address] [place] [address] [phone] 02/29/2024 10:30 EDT Appointment [facility] Radiology Nuclear Medicine and PET [address] 884171 02/29/2024 14:30 EDT Appointment [facility] Radiology Nuclear Medicine and [address] [phone] 03/01/2024 8:00 EDT Appointment [facility] Radiology Nuclear Medicine and PET [address] [phone] 03/01/2024 9:30 EDT Appointment [facility] Radiology Nuclear Medicine and PET [address] [phone] documented as of this encounter Procedures Procedure Name Priority Date/Time Associated Diagnosis Comments URINE CHEMICAL (DIP) & SEDIMENT (MICRO) WITH REFLEX TO CULTURE Routine 09/04/2020 16:57 EDT Dysuria BACTERIAL CULTURE, URINE Today 09/04/2020 16:57 EDT Dysuria documented in this encounter Results * BACTERIAL CULTURE, URINE (09/04/2020 16:57 EDT) Organism ID Less than 10,000 CFU/ml Usual urogenital candis. 09/06/2020 10:45 [facility] Urine URINE SPECIMEN COLLECTION, CLEAN CATCH / Unknown Urine Collect / Unknown 09/04/2020 16:57 EDT 09/04/2020 17:53 EDT Cristy Alfonso MD MPH MICROBIOLOGY - GENERAL ORDERABLES [facility] [address] [place] [address] * (ABNORMAL) URINE CHEMICAL (DIP) & SEDIMENT (MICRO) WITH REFLEX TO CULTURE (09/04/2020 16:57 EDT) Color UA Yellow Colorless, Yellow 09/04/2020 17:53 [facility] Clarity UA Clear Clear 09/04/2020 17:53 [facility] Glucose UA Negative Negative 09/04/2020 17:53 [facility] Bilirubin UA Negative Negative 09/04/2020 17:53 [facility] Ketones UA Trace(A) Negative 09/04/2020 17:53 [facility] Specific [place], Urine 1.032 1.001 - 1.035 09/04/2020 17:53 [facility] Blood UA Negative Negative 09/04/2020 17:53 [facility] Urobilinogen UA 3(A) Normal mg/dL 09/04/2020 17:53 [facility] Nitrite UA Negative Negative 09/04/2020 17:53 [facility] Leukocyte Esterase UA Trace(A) Negative 09/04/2020 17:53 [facility] Protein UA 1+(A) Negative 09/04/2020 17:53 [facility] pH, UA 6.5 4.6 - 8.0 09/04/2020 17:53 [facility] Urine RBC Count, Auto 3 - 10(A) 0 - 2 Cells/HPF 09/04/2020 17:53 EDT [facility] Urine WBC Count, Auto 11 - 50(A) 0 - 3 Cells/HPF 09/04/2020 17:53 EDT [facility] Urine Squamous Count, Auto Many(A) None Seen Cells/HPF 09/04/2020 17:53 EDT [facility] Urine Hyaline Cast Count, Auto <=10 <=10 Casts/LPF 09/04/2020 17:53 T [facility] Urine Bacteria Count, Auto Few(A) None Seen Bacteria/HP F 09/04/2020 17:53 EDT [facility] Urine URINE SPECIMEN COLLECTION, CLEAN CATCH / Unknown Urine Collect / Unknown 09/04/2020 16:57 EDT 09/04/2020 17:03 EDT Narrative [facility] - 09/04/2020 17:53 EDT A Urine Culture test has been reflexively ordered based on result criteria from the Urine Sediment Analysis. Urine Sediment Analysis results are unreliable on urines that are unrefrigerated for >2 hrs or refrigerated >8 hrs. Cristy Alfonso MD MPH URINALYSIS ORD ERABLES [facility] [address] [place] [address] documented in this encounter Visit Diagnoses Diagnosis Dysuria- Primary documented in this encounter
--- OUTSIDE RECORDS SUMMARY | 2024-02-06 13:35 | XMS_ITS | Encounter Summary ---
Author Organization [facility] Address [address] [place] [address] Care Team Providers Care Charge Gang Weigher Name Role Phone Unavailable Primary Care [...] [facility] Adult Primary Care - [address] [phone] Carrington Calderon MD [address] [phone] 02/27/2024 8:30 EDT Telemedicine [facility] Sleep Program - [address] [phone] Dwight Colbert [address] [place] [phone] 02/29/2024 10:30 EDT Appointment [facility] Radiology Nuclear Medicine and PET - [address] [phone] 02/29/2024 14:30 EDT Appointment [facility] Radiology Nuclear Medicine and PET - [address] [address] 03/01/2024 8:00 EDT [facility]ment [facility] Radiology Nuclear Medicine and PET - [address] [address] 03/01/2024 9:30 EDT [facility]ointment [facility] Radiology Nuclear Medicine and PET - [address] [address] documented as of this encounter Visit Diagnoses Not on filedocumented in this encounter
--- OUTSIDE RECORDS SUMMARY | 2024-02-06 13:35 | XMS_ITS | Encounter Summary ---
Author Organization [facility] Address [address] [place] [address] Care Team Providers Care Railroad Car Loader Name Role Phone Unavailable Primary Care Provider Unavailabl e Reason for Visit * Reason Onset Date Comments Procedure 08/18/2020 Encounter Details Date Type Department Care Team (Late st Contact Info) Description 08/18/2020 Orders Only [facility] Women's Services - [facility] [address] [place], [place] 454181 Nimisha Bay MD 2 [facility] Medical Office Building, [address] [place] [address] Encounter for preprocedure screening laboratory [...] [facility] Adult Primary Care - [address] 133451 Carrington Calderon MD 1 [facility] 1 [place] [phone] 02/27/2024 8:30 EDT Telemedicine [facility] Sleep Program - [address] [phone] Dwight Colbert [address] [place] [address] 02/29/2024 10:30 EDT Appointment [facility] Radiology Nuclear Medicine and PET - [address] [address] 02/29/2024 14:30 EDT Appointment [facility] Radiology Nuclear Medicine and PET [address] [phone] 03/01/2024 8:00 EDT Appointment [facility] Radiology Nuclear Medicine and PET [address] [phone] 03/01/2024 9:30 EDT Appointment [facility] Nuclear [facility] and PET [address] [address] documented as of this encounter Results * COVID-19 TESTING (08/18/2020 16:23 EDT) COVID-19 rt-PCR Result Negative Negative 08/19/2020 15:57 EDT [facility] Comment: This test has [...] developed and its performance characteristics determined by [facility]. It has not been cleared or [...] testing. This test is based on the [facility] COVID-19 Emergency Use Authorization (EUA) assay, with minor modification as defined by the FDA Performed on the Walk-in Appointment Scheduler 7 Flex RT-PCR System. Performing Lab [facility] 08/19/2020 15:57 EDT [facility] Swab ENTIRE NASOPHARYNX / Unknown Swab / Unknown 08/18/2020 16:23 EDT 08/18/2020 16:23 EDT Nimisha Bay MD MICROBIOLOGY - [facility] ORDERABLES [facility] [address] [place] [address] documented in this encounter Visit Diagnoses Diagnosis Encounter for preprocedure screening laboratory testing for COVID-19- Primary documented in this encounter
--- OUTSIDE RECORDS SUMMARY | 2024-02-06 13:35 | XMS_ITS | Encounter Summary ---
Author Organization [facility] Address [address] [place] [address] Care Team Providers Care Mri Special Procedures Technologist Name Role Phone Unavailable Primary Care Provider Unavailabl e Reason for Visit * Reason Onset Date Comments Surgery Scheduling 08/19/2020 Encounter Details Date Type Department Care Team (Late st Contact Info) Description 08/19/2020 Telephone [facility] Women's Services [facility] [address] [place], [place] [phone] Nimisha Bay MD 2 [facility] Medical Office Building, [address] [place] [address] Surgery Scheduling Social History Tobacco [...] [facility] Adult Primary Care - [address] [address] Carrington Calderon MD 1 [facility] 1 [place] [address] 02/27/2024 8:30 EDT Telemedicine [facility] Sleep Program - [address] [phone] Dwight Colbert [address] [place] [address] 02/29/2024 10:30 EDT Appointment [facility] Radiology Nuclear Medicine and PET - [address] 450011 02/29/2024 14:30 EDT Appointment [facility] Radiology Nuclear Medicine and PET [address] [phone] 03/01/2024 8:00 EDT Appointment [facility] Radiology Nuclear Medicine and PET - [address] [phone] 03/01/2024 9:30 EDT Appointment [facility] Radiology Nuclear Medicine and PET - [address] [phone] documented as of this encounter Visit Diagnoses Not on filedocumented in this encounter
--- OUTSIDE RECORDS SUMMARY | 2024-02-06 13:35 | XMS_ITS | Encounter Summary ---
Author Organization [facility] Address [address] [place] [address] Care Team Providers Care Dictating Machine Typist Name Role Phone Unavailable Primary Care Provider Unavailabl e Reason for Visit * Reason Onset Date Comments Labs Only 09/12/2020 Encounter Details Date Type Department Care Team (Late st Contact Info) Description 09/12/2020 Telephone [facility] Adult Primary Care - [place] [address] [place], [place] [phone] James Partida, RN Labs Only Social History [...] [facility] Adult Primary Care - [address] [phone] Carrington Calderon MD [address] [phone] 02/27/2024 8:30 EDT Telemedicine [facility] Sleep Program - [address] [phone] Dwight Colbert [address] [place] [address] [phone] 02/29/2024 10:30 EDT [facility]ment [facility] Rad[facility] Nuclear Medicine and PET - [address] [phone] 02/29/2024 14:30 EDT [facility]ment [facility] Nuclear Medicine and PET - [address] [phone] 03/01/2024 8:00 EDT Appointment [facility] Radiology Nuclear Medicine and PET - [address] [phone] 03/01/2024 9:30 EDT Appointment [facility] Radiology Nuclear Medicine and PET [address] [phone] documented as of this encounter Visit Diagnoses Not on filedocumented in this encounter
--- OUTSIDE RECORDS SUMMARY | 2024-02-06 13:35 | XMS_ITS | Encounter Summary ---
Author Organization [facility] Address [address] [place] [address] Care Team Providers Care Crimper Operator Name Role Phone Unavailable Primary Care Provider Unavailabl e Encounter Details Date Type Department Care Team (Late st Contact Info) Description 09/11/2020 Community Health Team [facility] [address] [facility], [address] [place] [address] Briana Larson [address] [facility] [address] [place] [address] Social History Tobacco Use Types Packs/Day Years [...] as of this encounter Progress Notes * LarsonYessiBriana - 09/11/2020 0750 EDT ..Community Health Team [...] patient as discussed. .. Adult Primary Care [place], [address] [place] [address] Total Time: 15 min phone, 20 min care coordination, 10 min charting Referral: Counseling Follow up: Consult only Status: Graduated documented in this encounter Plan of Treatment Upcoming Encounters Date Type Department Care Team (Late st Contact Info) Description 02/21/2024 9:[address] [facility] Adult Primary Care - [address] [address] Carrington Calderon MD [address] [phone] 02/27/2024 8:[address] [facility] Sleep Program - [address] [address] Dwight Colbert [address] [place] [address] [phone] 02/29/2024 10:30 EDT Appointment [facility] Radiology Nuclear Medicine and PET [address] [phone] 02/29/2024 14:30 EDT Appointment [facility] Radiology Nuclear Medicine and PET [address] 434001 03/01/2024 8:00 EDT Appointment [facility] Radiology Nuclear Medicine and PET [address] [phone] 03/01/2024 9:30 EDT Appointment [facility] Radiology Nuclear Medicine and PET [address] 628351 documented as of this encounter Visit Diagnoses Not on filedocumented in this encounter
--- OUTSIDE RECORDS SUMMARY | 2024-02-06 13:35 | XMS_ITS | Encounter Summary ---
Author Organization [facility] Address [address] [place] [address] Care Team Providers Care Relay Technician Name Role Phone Unavailable Primary Care Provider Unavailabl e Reason for Visit * Reason Onset Date Comments Results 09/12/2020 Encounter Details Date Type Department Care Team (Late st Contact Info) Description 09/12/2020 Telephone [facility] [address] [place], [place] [phone] [place] [address] [place] [phone] Results Social History [...] Joseph MD Obstetrics and Gynecology, PGY-2 Pager #[phone] 09/12/20 9:42 documented in this encounter Plan of Treatment Upcoming Encounters Date Type Department Care Team (Late st Contact Info) Description 02/21/2024 9:45 EDT Office Visit [facility] Adult Primary Care - [address] [address] Carrington Calderon MD [address] [phone] 02/27/2024 8:30 EDT Telemedicine [facility] Sleep Program - [address] [address] Dwight Colbert [address] [place] [address] [phone] 02/29/2024 10:30 EDT [facility]ment [facility] Radiology Nuclear Medicine and PET - [address] [phone] 02/29/2024 14:30 EDT Appointment [facility] [place] Radiology Nuclear Medicine and PET [address] [phone] 03/01/2024 8:00 EDT [facility] Radiology Nuclear Medicine and PET - [address] 152821 03/01/2024 9:30 EDT Appointment [facility] [place] Radiology Nuclear Medicine and PET [address] [phone] documented as of this encounter Visit Diagnoses Not on filedocumented in this encounter
--- OUTSIDE RECORDS SUMMARY | 2024-02-06 13:35 | XMS_ITS | Encounter Summary ---
Author Organization [facility] Address [address] [place] [address] Care Team Providers Care Library Circulation Department Chief Name Role Phone Unavailable Primary Care Provider Unavailabl e Reason for Visit * Reason Onset Date Comments Hospital Discharge Follow Up 08/21/2020 Encounter Details Date Type Department Care Team (Late st Contact Info) Description 08/21/[address] [facility] Adult Primary Care - [address] [phone] Benita Thompson, MARCELO Hospital Discharge Follow Up [...] Encounter - Benita Thompson RN - 08/21/2020 8117 EDT Hospital Discharge Follow Up: Same Day Surgery 08/20/20 Risk Assessment: high 44 Reason for admission: Laparoscopic bilateral salpingectomy Symptoms improving? Pain level 8.5-9/10. She only tolerates OTC Tylenol. Patient is aware to contact OBGYN for pain management. Discharge instructions available? yes Medications Reviewed/prescriptions filled? yes -SMOCKER medications resumed Support at home? Yes-spouse Home [...] [facility] - [address] 980221 Carrington Calderon MD [address] [phone] 02/27/2024 8:30 EDT Telemedicine [facility] Sleep Program - [address] 364201 Dwight Colbert [address] [place] [address] [phone] 02/29/2024 10:30 EDT Appointment [facility] Radiology Nuclear Medicine and PET [address] [phone] 02/29/2024 14:30 EDT Appointment [facility] Radiology Nuclear Medicine and PET [address] 739321 03/01/2024 8:00 EDT [facility]ointment [facility] Radiology Nuclear Medicine and PET - [address] [phone] 03/01/2024 9:30 EDT Appointment [facility] Radiology Nuclear Medicine and PET [address] [phone] documented as of this encounter Visit Diagnoses Not on filedocumented in this encounter
--- OUTSIDE RECORDS SUMMARY | 2024-02-06 13:35 | XMS_ITS | Encounter Summary ---
Author Organization [facility] Address [address] [place] [address] Care Team Providers Care Radiography Technician Name Role Phone Unavailable Primary Care Provider Unavailabl e Reason for Visit * Reason Onset Date Comments Medications Refill 09/02/2020 Encounter Details Date Type Department Care Team (Late st Contact Info) Description 09/02/2020 Refill [facility] Endocrinology - [facility] [address] [place], [place] [phone] Sara Zafar NP [address] [facility] [address] [place] [address] Medications Refill Social History Tobacco [...] hyperglycemia, with long-term current use of insulin ([facility]) Use 1 pen needle as directed 4 times daily. 400 Each 2 09/02/2020 03/16/2023 documented in this encounter Miscellaneous Notes * Telephone Encounter - Valencia Correia - 09/02/2020 1244 EDT Medication(s) Requested patient was supposed to have 8mm (31g) pen needles called s/p her last appointment. Screw on tips. Pharmacy [id number] - [place], [place] - [facility] [address]?[phone] Next Visit Date Visit date not found Out of Medication? Yes none left Valencia Correia 09/02/2020 12:44 documented in this encounter Plan of Treatment Upcoming Encounters Date Type Department Care Team (Late st Contact Info) Description 02/21/2024 9:45 EDT Office Visit [facility] Adult Primary Care - [address] [phone] Carrington Calderon MD [address] [phone] 02/27/2024 8:30 EDT Telemedicine [facility] Sleep Program - [address] [address] Dwight Colbert [address] [place] [phone] 02/29/2024 10:30 EDT Appointment [facility] Radiology Nuclear Medicine and PET - [address] [phone] 02/29/2024 14:30 EDT Appointment [facility] Radiology Nuclear Medicine and PET - [address] 697321 03/01/2024 8:00 EDT Appointment [facility] Radiology Nuclear Medicine and PET - [address] 158061 03/01/2024 9:30 EDT Appointment [facility] Radiology Nuclear Medicine and PET - [address] [phone] documented as of this encounter Visit Diagnoses Diagnosis Type 2 diabetes mellitus with hyperglycemia, with long-term current use of insulin ([facility])- Primary documented in this encounter
--- OUTSIDE RECORDS SUMMARY | 2024-02-06 13:35 | XMS_ITS | Encounter Summary ---
Author Organization [facility] Address [address] [place] [address] Care Team Providers Care Enrobing Machine Feeder Name Role Phone Unavailable Primary Care Provider Unavailabl e Reason for Visit * Auth/Cert Specialty Diagnoses / Procedures Referred By Contac t Referred To Contact Diagnoses Unwanted fertility Procedures ID LAP,RMV ADNEXAL STRUCTURE Nimisha Bay MD [address] [place] [address] Medical Office Building, [address] [place] [address] Referral ID Status Reason Start Date Expiration Date Visits Re quested Visits Authorized [id number] 06/30/2020 1 1 Encounter Details Date Type Department Care Team (Late st Contact Info) Description 08/20/2020 12:00 EDT - 08/20/2020 14:55 EDT Surgery [facility] OR [address] [place] [address] Nimisha Bay MD [address] [place] [address] Medical Office Building, [address] [place] [address] Laparoscopic Bilateral Salpingectomy [23294 (CPT??)] Surgery Details Date/Time Status Location OR Service Patient Class Case Cl ass Case Type Trauma Case? 08/20/20 1200 Posted [facility] [place] [facility] Outpatient [...] or Self Fpc documented in this encounter Progress Notes * [...] 08/18/2020 14:27 PGY-4 Obstetrics and Gynecology Pager #[phone] documented in this encounter H&P Notes * [...] Egan D.O. 07/28/2020 11:05 Obstetrics/Gynecology PGY-1 Pager #[phone] documented in this encounter OR Notes * OR Surgeon - Nimisha Bay MD - 08/20/2020 1436 EDT Name: Cristy Luo :1985 Date of Service:@08/20/2020?? Surgeon: Dr. Nimisha Bay Rail Car Repairer:Tonja Egan D.O., Jackie Oropeza M.D. Procedure: Laparoscopy [...] Egan D.O. 08/20/2020 15:22 Obstetrics/Gynecology PGY-1 Pager #[phone] ?? Attending note: I was present for the entire procedure. No complications. Nimisha Bay MD ? documented in this encounter Plan of Treatment Upcoming Encounters Date Type Department Care Team (Late st Contact Info) Description 02/21/2024 9:45 EDT Office Visit [facility] Adult Primary Care - [address] [phone] Carrington Calderon MD [address] [address] 02/27/2024 8:30 EDT Telemedicine [facility] Sleep Program - [address] 050741 Dwight Colbert [address] [place] [address] [phone] 02/29/2024 10:30 EDT Appointment [facility] Radiology Nuclear Medicine and PET - [address] 624151 02/29/2024 14:30 EDT Appointment [facility] Radiology Nuclear Medicine and PET - [address] [address] 03/01/2024 8:00 EDT Appointment [facility] Radiology Nuclear Medicine and PET - [address] [address] 03/01/2024 9:30 EDT Appointment [facility] Radiology Nuclear Medicine and PET - [address] [address] Scheduled Referrals Name Type Priority Associated Diagnoses [...] full cross sections identified. 08/29/2020 7:12 EDT [facility] Attestation There was significant resident/fellow involvement in the diagnostic evaluation of this case. By the signature below, the attending physician certifies that they have personally conducted a gross and/or microscopic examination of the described specimens and rendered or confirmed the above diagnosis. 08/29/2020 7:12 EDT [facility] at 0712 Clinical History Unwanted fertility 08/29/2020 7:12 EDT [facility] Gross Description A. Received [...] spear. Sectioning reveals patent, unremarkable cut surfaces. Correctional Counselor sections, to include the bisected fimbria, are submitted in A1 (shorter tube) and A2 (longer tube). EUNICE BAEZ(ASCP) 08/21/2020 9:18 08/29/2020 7:12 EDT [facility] Resident/Cash w: John Smith MD 08/29/2020 7:12 EDT [facility] Performing Lab [facility] [place] [facility] 08/29/2020 7:12 EDT [facility] Scanned Images 08/29/2020 7:12 EDT [facility] Tissue BOTH FALLOPIAN TUBES / Unknown 08/20/2020 13:15 EDT 08/20/2020 15:16 EDT Nimisha Bay MD PATHOLOGY ORDERABLE S [facility] [address] [place] [address] * (ABNORMAL) POCT GLUCOSE, INTERFACED (08/20/2020 11:26 EDT) Glucose, POC 119(H) 70 - 100 mg/dL 08/20/2020 11:26 EDT [facility] health information tech ID [id number] 08/20/2020 11:26 EDT [facility] HN LAB POC COMMENT (GLUCOSE) Test Performed by Nursing Services 08/20/2020 11:26 EDT [facility] Blood CAPILLARY BLOOD / Unknown 08/20/2020 11:26 EDT 08/20/2020 11:26 EDT Whit Rae MD POINT OF CARE TEST O RDERABLES [facility] [address] [place] [address] * TEST, URINE (08/20/2020 10:42 EDT) Test, Urine Negative Negative 08/20/2020 10:59 EDT [facility] Comment:False negative resul ts may occur in women who are beyond 5-8 weeks gestation. Diagnosis of should be based on a correlation of test results with typical clinical signs and symptoms. Urine VOIDED URINE SPECIMEN / Unknown Urine Collect / Unknown 08/20/2020 10:42 EDT 08/20/2020 10:46 EDT Whit Rae MD URINALYSIS ORDERABLE S Performing Organization Address City/State/[facility] Co de Phone Number [facility] [address] [place] [address] documented in this encounter Visit Diagnoses Diagnosis Admission for sterilization- Primary Sterilization 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 ([facility]) Type II or unspecified type diabetes mellitus [...]
--- OUTSIDE RECORDS SUMMARY | 2024-02-06 13:35 | XMS_ITS | Encounter Summary ---
Author Organization [facility] Address [address] [place] [address] Care Team Providers Care Tongue And Groove Machine Setter Name Role Phone Unavailable Primary Care Provider Unavailabl e Encounter Details Date Type Department Care Team (Latest Contact Info) Description 08/12/2020 10:30 EST - 08/12/2020 23:59 EST Hospital Encounter [facility] Pre-Surgical Testing [address] [place], [place] [phone] Discharge Disposition: Home or Self Care Social [...] mL 3 12/04/2019 12/21/2021 lancets One Touch DelSport Universal Process or other brand compatible with lancing device [...] instruct them to call us back at [phone] to report symptoms (If patient is in [...] [facility] Adult Primary Care - [address] 237891 Carrington Calderon MD [address] [address] 02/27/2024 8:30 EDT Telemedicine [facility] Sleep Program - [address] [phone] Dwight Colbert [address] [place] [address] [phone] 02/29/2024 10:[address] [facility] Radiology Nuclear Medicine and PET - [address] [phone] 02/29/2024 14:[address] [facility] Radiology Nuclear Medicine and PET - [address] 193961 03/01/2024 8:[address] [facility] Radiology Nuclear Medicine and PET [address] 650101 03/01/2024 9:[address] [facility] Radiology Nuclear Medicine and PET [address] [phone] documented as of this encounter Visit Diagnoses Not on filedocumented in this encounter
--- OUTSIDE RECORDS SUMMARY | 2024-02-06 13:35 | XMS_ITS | Encounter Summary ---
Author Organization [facility] Address [address] [place] [address] Care Team Providers Care Communication Assistant Name Role Phone Unavailable Primary Care Provider Unavailabl e Reason for Visit * Reason Comments Follow-up Encounter Details Date Type Department Care Team (Latest Contact Info) Description 09/15/2020 9:45 EDT Office Visit [facility] Adult Primary Care - [address] [phone] Tonja Alejandro PA-C [address] [place] [address] [address] [place] [address] Type 2 diabetes mellitus with hyperosmolarity without coma, with long-term current use of insulin ([facility]) (Primary Dx); Gastroparesis; Chronic bilateral thoracic back [...] Patient reports that she followed up with [facility] and underwent a laparoscopic bilateral salpingectomy on [...] worse. She has done physical therapy in [place] specifically pool therapy in the past. She also reports that she has a lot of excessive skin from her weight loss. She thinks that these pulls on the back muscles. She is interested in the future of possibly getting skin removal. Patient reports that on Tuesday she is traveling out to [place] prior self. She has severe anxiety whenit [...] Anxiety regarding this upcoming airplane flight to [place] -patient already has a prescription for lorazepam, [...] place for injection therapy. Tonja Alejandro PA-C [facility] Adult Primary Care-[place] 09/15/2020 9:59 I spent a total of [...] [facility] - [address] 838451 Carrington Calderon MD [address] [phone] 02/27/2024 8:30 EDT Telemedicine [facility] Sleep Program - [address] [phone] Dwight Colbert [address] [place] [address] [phone] 02/29/2024 10:30 EDT Appointment [facility] Radiology Nuclear Medicine and PET - [address] [phone] 02/29/2024 14:30 EDT Appointment [facility] Radiology Nuclear Medicine and PET [address] [phone] 03/01/2024 8:00 EDT Appointment [facility] Radiology Nuclear Medicine and PET [address] [phone] 03/01/2024 9:30 EDT Appointment [facility] Radiology Nuclear Medicine and PET - [address] [phone] documented as of this encounter Visit Diagnoses Diagnosis Type 2 diabetes mellitus with hyperosmolarity without coma, with long-term current use of insulin ([facility])- Primary Gastroparesis Chronic bilateral thoracic back pain Lumbar pain Lumbago documented in this encounter
--- OUTSIDE RECORDS SUMMARY | 2024-02-06 13:35 | XMS_ITS | Encounter Summary ---
Author Organization [facility] Address [address] [place] [address] Care Team Providers Care Figure Clerk Name Role Phone Unavailable Primary Care Provider Unavailabl e Encounter Details Date Type Department Care Team (Latest Contact Info) Description 08/18/2020 16:20 EDT Phlebotomy Only [facility] [employer] [address] [place] [address] Encounter for preprocedure screening laboratory testing for [...] [facility] - [address] [phone] Carrington Calderon MD 1 [facility] 1 [place] [phone] 02/27/2024 8:30 EDT Telemedicine [facility] Sleep Program - [address] [phone] Dwight Colbert [address] [place] [phone] 02/29/2024 10:30 EDT Appointment [facility] Radiology Nuclear Medicine and PET - [address] [phone] 02/29/2024 14:30 EDT Appointment [facility] Radiology Nuclear Medicine and PET [address] [address] 03/01/2024 8:00 EDT Appointment [facility] Radiology Nuclear [facility] and [address] [address] 03/01/2024 9:30 EDT Appointment [facility] Radiology Nuclear [facility] and [address] [address] documented as of this encounter Procedures Procedure Name Priority Date/Time Associated Diagnosis Comments ZZCOVID-19 TEST [facility] PCR STAT 08/18/2020 16:23 EDT Encounter for preprocedure screening laboratory testing for COVID-19 COVID-19 TESTING STAT 08/18/2020 16:2 3 EDT Encounter for preprocedure screening laboratory testing for COVID-19 documented in this encounter Results * COVID-19 TEST [facility] PCR (08/18/2020 16:23 EDT) Swab ENTIRE NASOPHARYNX / Unknown Swab / Unknown 08/18/2020 16:23 EDT 08/18/2020 16:23 EDT Nimisha Bay MD MICROBIOLOGY - [facility] ORDERABLES [facility] [address] [place] [address] * COVID-19 TESTING (08/18/2020 16:23 EDT) COVID-19 rt-PCR Result Negative Negative 08/19/2020 15:57 EDT [facility] Comment: This test has not [...] developed and its performance characteristics determined by [facility]. It has not been cleared or approved [...] testing. This test is based on the [facility] COVID-19 Emergency Use Authorization (EUA) assay, with minor modification as defined by the FDA Performed on the [employer] 7 Flex RT-PCR System. Performing Lab [facility] Lab 08/19/2020 15:57 EDT [facility] Swab ENTIRE NASOPHARYNX / Unknown Swab / Unknown 08/18/2020 16:23 EDT 08/18/2020 16:23 EDT Nimisha Bay MD MICROBIOLOGY - [facility] ORDERABLES [facility] [address] [place] [address] documented in this encounter Visit Diagnoses Diagnosis Encounter for preprocedure screening laboratory testing for COVID-19 documented in this encounter
--- OUTSIDE RECORDS SUMMARY | 2024-02-06 13:35 | XMS_ITS | Encounter Summary ---
Author Organization [facility] Address [address] [place] [address] Care Team Providers Care Fisher Net Name Role Phone Unavailable Primary Care Provider [...] Office Visit [facility] Adult Primary Care - [address] [phone] Carrington Calderon MD 1 [facility] 1 [place] [address] 02/27/2024 8:30 EDT Telemedicine [facility] Sleep Program - [address] [phone] Dwight Colbert [address] [place] [phone] 02/29/2024 10:30 EDT Appointment [facility] Radiology Nuclear Medicine and PET - [address] [phone] 02/29/2024 14:30 EDT Appointment [facility] Radiology Nuclear Medicine and PET - [address] [address] 03/01/2024 8:00 EDT [facility] Radiology Nuclear Medicine and PET - [address] [address] 03/01/2024 9:30 EDT [facility] Radiology Nuclear Medicine and PET - [address] [address] documented as of this encounter Visit Diagnoses Not on filedocumented in this encounter
--- OUTSIDE RECORDS SUMMARY | 2024-02-06 13:35 | XMS_ITS | Encounter Summary ---
Author Organization [facility] Address [address] [place] [address] Care Team Providers Care Pyrometer Temperature Regulator Name Role Phone Unavailable Primary Care Provider Unavailabl e Reason for Visit * Reason Onset Date Comments Hospital Discharge Follow Up 08/11/2020 Encounter Details Date Type Department Care Team (Late st Contact Info) Description 08/11/2020 Telephone [facility] Adult Primary Care [address] [phone] Tonja Alejandro PA-C [address] [place] [address] [place] [phone] Hospital Discharge Follow Up Social History [...] [facility] Adult Primary Care - [address] [phone] Carrington Calderon MD [address] [phone] 02/27/2024 8:30 EDT Telemedicine [facility] Sleep Program - [address] [address] Dwight Colbert [address] [place] [address] [phone] 02/29/2024 10:30 EDT Appointment [facility] Radiology Nuclear Medicine and PET - [address] [address] 02/29/2024 14:30 EDT Appointment [facility] Radiology Nuclear Medicine and PET - [address] [address] 03/01/2024 8:00 EDT Appointment [facility] Radiology Nuclear Medicine and PET - [address] [address] 03/01/2024 9:30 EDT Appointment [facility] Radiology Nuclear Medicine and PET - [address] [address] documented as of this encounter Visit Diagnoses [...]
--- OUTSIDE RECORDS SUMMARY | 2024-02-06 13:35 | XMS_ITS | Encounter Summary ---
Author Organization [facility] Address [address] [place] [address] Care Team Providers Care Life Teacher Name Role Phone Unavailable Primary Care Provider Unavailabl e Encounter Details Date Type Department Care Team (Late st Contact Info) Description 09/02/[address] [facility] Endocrinology - [facility] [address] [place] [address] Sara Zafar, GUSTAVO [address] [facility] [address] [place] [address] Type 2 diabetes mellitus with hyperglycemia, with long-term current use of insulin ([facility]) (Primary Dx) Social History Tobacco [...] [facility] Adult Primary Care - [address] [phone] Carrington Calderon MD [address] [phone] 02/27/2024 8:[address] [facility] Sleep Program - [address] [phone] Dwight Colbert [address] [place] [address] [phone] 02/29/2024 10:30 EDT [facility] Radiology Nuclear Medicine and PET - [address] [address] 02/29/2024 14:30 EDT Appointment [facility] Radiology Nuclear Medicine and PET - [address] 174431 03/01/2024 8:00 EDT Appointment [facility] Radiology Nuclear Medicine and PET - [address] [phone] 03/01/2024 9:30 EDT Appointment [facility] Radiology Nuclear Medicine and PET [address] 133001 documented as of this encounter Visit Diagnoses Diagnosis Type 2 diabetes mellitus with hyperglycemia, with long-term current use of insulin ([facility])- Primary documented in this encounter
--- OUTSIDE RECORDS SUMMARY | 2024-02-06 13:35 | XMS_ITS | Encounter Summary ---
Author Organization [facility] Address [address] [place] [address] Care Team Providers Care Brazing Machine Operator Helper Name Role Phone Unavailable Primary Care Provider Unavailabl e Encounter Details Date Type Department Care Team (Late st Contact Info) Description 08/14/2020 Orders Only [facility] Women's Services - [address] [address] Rosa Chang RN Pre-procedure lab exam (Primary [...] [facility] Adult Primary Care - [address] [phone] Carrington Calderon MD [address] [phone] 02/27/2024 8:30 EDT Telemedicine [facility] Sleep Program - [address] [phone] Dwight Colbert [address] [place] [address] 02/29/2024 10:30 EDT [facility] Radiology Nuclear Medicine and PET - [address] [address] 02/29/2024 14:30 EDT [facility] Radiology Nuclear Medicine and PET - [address] 777141 03/01/2024 8:00 EDT Appointment [facility] Radiology Nuclear Medicine and PET - [address] [phone] 03/01/2024 9:30 EDT Appointment [facility] Radiology Nuclear Medicine and PET [address] [address] documented as of this encounter Visit Diagnoses Diagnosis Pre-procedure lab exam- Primary Pre-procedural laboratory examination documented in this encounter
--- OUTSIDE RECORDS SUMMARY | 2024-02-06 13:35 | XMS_ITS | Encounter Summary ---
Author Organization [facility] Address [address] [place] [address] Care Team Providers Care Prepared [employer] Service Team Member Name Role Phone Unavailable Primary Care [...] [facility] - [address] [phone] Carrington Calderon MD [address] [phone] 02/27/2024 8:30 EDT Telemedicine [facility] Sleep Program - [address] [phone] Dwight Colbert [address] [place] [address] [phone] 02/29/2024 10:30 EDT Appointment [facility] Radiology Nuclear Medicine and PET - [address] 374551 02/29/2024 14:30 EDT Appointment [facility] Radiology Nuclear Medicine and PET - [address] [address] 03/01/2024 8:00 EDT [facility]ment [facility] Radiology Nuclear Medicine and PET - [address] [address] 03/01/2024 9:[address] [facility] Nuclear Medicine and PET - [address] [address] documented as of this encounter Visit Diagnoses Not on filedocumented in this encounter
--- OUTSIDE RECORDS SUMMARY | 2024-02-06 13:35 | XMS_ITS | Encounter Summary ---
Author Organization [facility] Address [address] [place] [address] Care Team Providers Care Information Technology Data Analyst Name Role Phone Unavailable Primary Care Provider Unavailabl e Reason for Visit * Reason Onset Date Comments Paperwork request 08/29/2020 paperwork for adoption Encounter Details Date Type Department Care Team (Late st Contact Info) Description 08/29/2020 Telephone [facility] Adult Primary Care - [address] [phone] Tonja Alejandro PA-C [address] [place] [address] [place] [phone] Paperwork request (paperwork for adoption) Social [...] scheduled tomorrow west side of clinic. will pickle pumper paperwork then for both. * Telephone Encounter - Tonja Alejandro PA-C - 08/29/2020 1611 EDT Form filled out. Will place in [facility] box to be sent out. [...] [facility] Adult Primary Care - [address] 928141 Carrington Calderon MD [address] [address] 02/27/2024 8:30 EDT Telemedicine [facility] Sleep Program - [address] [phone] Dwight Colbert [address] [place] [address]2011 02/29/2024 10:30 EDT [facility]ment [facility] Radiology Nuclear Medicine and PET - [facility] [address] [place], [place] 452341 02/29/2024 14:[address] [facility] Nuclear Medicine and PET - [address] 499271 03/01/2024 8:00 EDT [facility]ment [facility] Radiology Nuclear Medicine and PET - [address] 871481 03/01/2024 9:30 EDT [facility]ointment [facility] Radiology Nuclear Medicine and PET - [address] [address] documented as of this encounter Visit Diagnoses Not on filedocumented in this encounter
--- OUTSIDE RECORDS SUMMARY | 2024-02-06 13:35 | XMS_ITS | Encounter Summary ---
Author Organization [facility] Address [address] [place] [address] Care Team Providers Care Operating Room Technician Name Role Phone Unavailable Primary Care Provider Unavailabl e Reason for Visit * Auth/Cert Specialty Diagnoses / Procedures Referred By Contlesli t Referred To Contact Diagnoses Unwanted fertility Procedures NC LAP,RMV ADNEXAL STRUCTURE Nimisha Bay MD 2 [facility] Medical Office Building, [address] [place] [address] Referral ID Status Reason Start Date Expiration Date Visits Re quested Visits Authorized [id number] 06/30/2020 1 1 Encounter Details Date Type Department Care Team (Late st Contact Info) Description 08/20/2020 13:05 EDT Anesthesia Event [facility] Main [place] [address] [place] [address] Cece Marrufo MD [address] [phone] Jhonatan Peterson, RICA 111 [facility], Level 2 [place] [address] Anesthesia Record Procedure Summary Procedure [...] Complete vitals history is available in the [facility]. Vitals Value Taken Time BP 130/73 [...] a referral for therapy. ??? Diabetes ([facility]) A1c 10.3 on 11/28/2019 - poorly controlled ??? Diabetes mellitus, type 2 ([facility]) pt check blood sugars at [...] occasionally ??? Obesity, unspecified ??? Osteomyelitis ([facility]) of left great toe-s/p amputation ??? Peripheral neuropathy 08/12/20- Bilateral feet-Takes Gabapentin- pt just started this med. ??? Productive cough pt currently quitting smoking- clear secretions. ??? Spontaneous miscarriage 09/04/201502/18, 08/19. Followed by Dr. López/[facility] in OBGYN Relevant Problems Neuro/Psych (+) Hx of ectopic CARDIOVASCULAR (+) Migraine with aura and without status migrainosus, not intractable ENDO/GI (+) Type 2 diabetes mellitus ([facility] (+) Type 2 diabetes mellitus with diabetic polyneuropathy, with long-term current use of insulin ([facility]) (+) 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 ([facility]) Other (+) Osteomyelitis of great toe of [...] and Staff Patient location during procedure: OR Resident/IT BUSINESS ANALYST: Jhonatan Peterson AA Performed: resident/IT BUSINESS ANALYST/AA Indications and Patient Condition Indications for airway [...] Office Visit [facility] - [address] [phone] Carrington Calderon MD [address] [address] 02/27/2024 8:30 EDT Telemedicine [facility] [address] 180461 Dwight Colbert [address] [place] [address] [phone] 02/29/2024 10:30 EDT Appointment [facility] Radiology Nuclear Medicine and PET [address] 843001 02/29/2024 14:30 EDT Appointment [facility] Radiology Nuclear Medicine and [address] [address] 03/01/2024 8:00 EDT Appointment [facility] Radiology Nuclear [facility] and [address] [address] 03/01/2024 9:30 EDT Appointment [facility] Radiology Nuclear [facility] and [address] [address] documented as of this encounter Procedures Procedure Name Priority Date/Time Associated Diagnosis Comments ANESTHESIA INTUBATION Routine 08/20/2020 13:23 EDT documented in this encounter Results * Airway (08/20/2020 13:23 EDT) Narrative Jhonatan Peterson AA - 08/20/2020 13:23 EDT Jhonatan Peterson AA ? 08/20/2020 13:24 Airway Date/Time: 08/20/2020 13:17 Urgency: elective General Information and Staff Patient location during procedure: OR Resident/IT BUSINESS ANALYST: Jhonatan Peterson AA Performed: resident/IT BUSINESS ANALYST/RICA Indications and Patient Condition Indications for airway [...]
--- OUTSIDE RECORDS SUMMARY | 2024-02-06 13:35 | XMS_ITS | Encounter Summary ---
Author Organization [facility] Address [address] [place] [address] Care Team Providers Care Twisting Department End Finder Name Role Phone Unavailable Primary Care Provider Unavailabl e Reason for Visit * Reason Comments Hospital Discharge Follow Up Encounter Details Date Type Department Care Team (Latest Contact Info) Description 08/14/2020 9:00 EST Office Visit [facility] Adult Primary Care - [address] 777291 Tonja Alejandro PA-C [address] [place] [address] [address] [place] [address] Type 2 diabetes mellitus with hyperosmolarity without coma, with long-term current use of insulin ([facility]) (Primary Dx); Gastroparesis Social History [...] Follow Up 1 month Tonja Alejandro PA-C [facility] 08/19/2020 9:13 I spent a total [...] [facility] Adult Primary Care [address] 115561 Carrington Calderon MD 1 [facility] Level 1 [place] [phone] 02/27/2024 8:30 EDT Telemedicine [facility] Sleep Program - [place] [address] [place] [address] Dwight Colbert [address] [place] [address] 02/29/2024 10:30 EDT Appointment [facility] Radiology Nuclear Medicine and PET - [address] [address] 02/29/2024 14:30 EDT Appointment [facility] Radiology Nuclear Medicine and PET - [address] [id number] 03/01/2024 8:00 EDT Appointment [facility] Radiology Nuclear Medicine and PET - [address] 986291 03/01/2024 9:30 EDT Appointment [facility] Radiology Nuclear Medicine and PET - [address] [address] documented as of this encounter Visit Diagnoses Diagnosis Type 2 diabetes mellitus with hyperosmolarity without coma, with long-term current use of insulin ([facility])- Primary Gastroparesis documented in this encounter Discontinued Medications Medication Sig Discontinue Reason Start Date End Da te LORazepam (ATIVAN) 0.5 mg tablet Take 1 Tab by mouth 3 times daily as needed for Anxiety. Daily Max: 1.5 mg Reorder 08/07/2020 08/14/2020 documented as of this encounter
--- OUTSIDE RECORDS SUMMARY | 2024-02-06 13:35 | XMS_ITS | Encounter Summary ---
Author Organization [facility] Address [address] [place] [address] Care Team Providers Care Parts Designer Name Role Phone Unavailable Primary Care [...] [facility] Adult Primary Care - [address] [phone] Carrington Calderon MD [address] [phone] 02/27/2024 8:30 EDT Telemedicine [facility] Sleep Program - [address] 205161 Dwight Colbert [address] [place] [address] [phone] 02/29/2024 10:30 EDT Appointment [facility] Radiology Nuclear Medicine and PET - [address] [phone] 02/29/2024 14:30 EDT Appointment [facility] Radiology Nuclear Medicine and PET - [address] [address] 03/01/2024 8:00 EDT [facility]ment [facility] Radiology Nuclear Medicine and PET - [address] [address] 03/01/2024 9:30 EDT Appointment [facility] Radiology Nuclear Medicine and PET - [address] [address] documented as of this encounter Visit Diagnoses Not on filedocumented in this encounter
--- OUTSIDE RECORDS SUMMARY | 2024-02-06 13:35 | XMS_ITS | Encounter Summary ---
Author Organization [facility] Address [address] [place] [address] Care Team Providers Care Revenue Manager Name Role Phone Unavailable Primary Care Provider Unavailabl e Reason for Visit * Reason Comments Diabetes Encounter Details Date Type Department Care Team (Latest Contact Info) Description 08/27/2020 10:30 EDT Office Visit [facility] Endocrinology - [facility] [address] [place] [address] Sara Zafar NP 62 [facility] [address] [place] [address] Anxiety and depression (Primary Dx); Gastroparesis; 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 ([facility]) Social History Tobacco Use Types Packs/Day [...] 08/27/2020 10:30 EDT Send August BS to [email or web address] Apply for Freestyle Vignesh CGM. Kehinde's Nir Ozempic 0.25 mg weekly for 4 weeks.. If tolerated increased to 0.5 mg weekly for 4 weeks and athn To 1.0 weekly. If severe nausea drop to lower dose for another month and retry. Try to avoid bolusing between snacks. RD referral F/U in 4 months with new DRYWALL CARRIER. documented in this encounter Ordered Prescriptions Prescription [...] APRN - 08/27/2020 1030 EDT Subjective: [facility] F/U Note T Patient [...] trimester miscarriages, most recently terminated a at [facility] 10/28/2019. Recurrent loss is attributed to to poorly controlled type 2 diabetes in conjunction with tobacco dependence. She saw PLATFORM MAN on 11/03/2018, and was advised to get [...] siblings, knows about 2, no DM. 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 Previous [...] 2 tabs daily. 2. Send BS to [email or web address] 3. Annetteeescourtney [place] CGM. ordered [facility] 4. Try to avoid bolusing between snacks. 5. RD referral 6. Consider using 1/2 unit pen for Novolog. 6. F/U in 4 months with new DRYWALL CARRIER as I will be retiring in October. [...] [facility] Adult Primary Care - [address] 220061 Carrington Calderon MD [address] [phone] 02/27/2024 8:30 EDT Telemedicine [facility] Sleep Program - [address] 448991 Dwight Colbert [address] [place] [address] 167921 02/29/2024 10:30 EDT Appointment [facility] Radiology Nuclear Medicine and PET [address] [phone] 02/29/2024 14:30 EDT Appointment [facility] Radiology Nuclear Medicine and PET [address] [phone] 03/01/2024 8:00 EDT Appointment [facility] Radiology Nuclear Medicine and PET [address] [phone] 03/01/2024 9:30 EDT Appointment [facility] Radiology Nuclear Medicine and PET [address] [phone] documented as of this encounter Visit Diagnoses [...]
--- OUTSIDE RECORDS SUMMARY | 2024-02-06 13:36 | XMS_ITS | Encounter Summary ---
Author Organization [facility] Address [address] [place] [address] Care Team Providers Care Roll Plugger Machine Operator Name Role Phone Unavailable Primary Care Provider Unavailabl e Reason for Visit * Reason Onset Date Comments Other 06/26/2020 Encounter Details Date Type Department Care Team (Late st Contact Info) Description 06/26/2020 Telephone [facility] Women's Services [address] [address] Rosa Chang, MARCELO Other Social History Tobacco [...] now. Is aware of bleeding precautions. Has HELMET HAT BRIM CUTTER on-call number as well. Will route to beta book team to please advise further/follow up. * Telephone Encounter - Rosa Salazar RN - 06/26/2020 6432 EST Non-identified VM, left general message: nurse calling from [facility] Women???s clinic, calling to check in [...] take you to the ER.Please call the HELMET HAT BRIM CUTTER nurses at [phone] when you receive this message. documented in this encounter Plan of Treatment Upcoming Encounters Date Type Department Care Team (Late st Contact Info) Description 02/21/2024 9:45 EDT Office Visit [facility] Adult Primary Care - [address] [phone] Carrington Calderon MD 1 [facility] Level 1 [place] [address] 02/27/2024 8:30 EDT Telemedicine [facility] Sleep Program - [address] [place] [address] [place] [address] Dwight Colbert [address] [place] [address] 02/29/2024 10:30 EDT [facility]ointment [facility] Radiology Nuclear Medicine and PET - [address] [address] 02/29/2024 14:30 EDT Appointment [facility] Radiology Nuclear Medicine and PET - [address] 827651 03/01/2024 8:00 EDT Appointment [facility] Radiology Nuclear Medicine and PET - [address] [phone] 03/01/2024 9:30 EDT Appointment [facility] Radiology Nuclear Medicine and PET - [address] [address] documented as of this encounter Visit Diagnoses Not on filedocumented in this encounter
--- OUTSIDE RECORDS SUMMARY | 2024-02-06 13:36 | XMS_ITS | Encounter Summary ---
Author Organization [facility] Address [address] [place] [address] Care Team Providers Care Patternmaker All Around Name Role Phone Unavailable Primary Care Provider [...] [facility] Adult Primary Care - [address] 374291 Carrington Calderon MD [address] [phone] 02/27/2024 8:30 EDT Telemedicine [facility] Sleep Program - [address] [phone] Dwight Colbert [address] [place] [address] 02/29/2024 10:30 EDT Appointment [facility] Radiology Nuclear Medicine and PET - [address] [phone] 02/29/2024 14:30 EDT Appointment [facility] Radiology Nuclear Medicine and PET - [address] [phone] 03/01/2024 8:00 EDT Appointment [facility] Radiology Nuclear Medicine and PET - [facility] [address] [place], [place] [phone] 03/01/2024 9:30 EDT Appointment [facility] Radiology Nuclear Medicine and PET - [address] [phone] documented as of this encounter Visit Diagnoses Not on filedocumented in this encounter
--- OUTSIDE RECORDS SUMMARY | 2024-02-06 13:36 | XMS_ITS | Encounter Summary ---
Author Organization [facility] Address [address] [place] [address] Care Team Providers Care Easement Man Name Role Phone Unavailable Primary Care Provider Unavailabl e Reason for Visit * Reason Onset Date Comments Appointment Related 07/30/2020 Encounter Details Date Type Department Care Team (Late st Contact Info) Description 07/30/2020 Telephone [facility] Women's Services [facility] [address] [place], [place] 179651 Nimisha Bay MD 2 [facility] Medical Office Building, [address] [place] [address] Appointment Related Social History Tobacco [...] [facility] Adult Primary Care - [address] 559861 Carrington Calderon MD 1 [facility] 1 [place] [address] 02/27/2024 8:30 EDT Telemedicine [facility] Sleep Program - [address] 047481 Dwight Colbetr [address] [place] [address]791 02/29/2024 10:30 EDT Appointment [facility] Radiology Nuclear Medicine and PET - [address] 424211 02/29/2024 14:30 EDT Appointment [facility] Radiology Nuclear Medicine and PET - [address] 397291 03/01/2024 8:00 EDT Appointment [facility] Radiology Nuclear Medicine and PET [address] 337991 03/01/2024 9:30 EDT Appointment [facility] Radiology Nuclear Medicine and PET [address] [phone] documented as of this encounter Visit Diagnoses Not on filedocumented in this encounter
--- OUTSIDE RECORDS SUMMARY | 2024-02-06 13:36 | XMS_ITS | Encounter Summary ---
Author Organization [facility] Address [address] [place] [address] Care Team Providers Care Project Administrative Assistant Name Role Phone Unavailable Primary Care Provider Unavailabl e Reason for Visit * Reason Onset Date Comments Advice Only 08/07/2020 Encounter Details Date Type Department Care Team (Late st Contact Info) Description 08/07/2020 Telephone [facility] Endocrinology - [facility] [address] [place] [address] Sara Zafar NP 62 [facility] [address] [place] [address] Advice Only Social History Tobacco [...] [facility] Adult Primary Care - [address] 278191 Carrington Calderon MD 1 [facility] 1 [place] [address] 02/27/2024 8:30 EDT Telemedicine [facility] Sleep Program - [address] 328061 Dwight Colbert [address] [place] [address] 02/29/2024 10:[address] [facility] Radiology Nuclear Medicine and PET - [address] [phone] 02/29/2024 14:[address] [facility] Radiology Nuclear Medicine and PET [address] [phone] 03/01/2024 8:[address] [facility] Radiology Nuclear Medicine and PET - [address] [phone] 03/01/2024 9:[address] [facility] Radiology Nuclear Medicine and PET [address] 804371 documented as of this encounter Visit Diagnoses Not on filedocumented in this encounter
--- OUTSIDE RECORDS SUMMARY | 2024-02-06 13:36 | XMS_ITS | Encounter Summary ---
Author Organization [facility] Address [address] [place] [address] Care Team Providers Care Marble Cleaner Name Role Phone Unavailable Primary Care Provider Unavailabl e Reason for Visit * Reason Onset Date Comments New/Evolving Symptoms 08/07/2020 Encounter Details Date Type Department Care Team (Late st Contact Info) Description 08/07/2020 Telephone [facility] Adult Primary Care [address] [phone] Tonja Alejandro PA-C [address] [place] [address] [place] [phone] New/Evolving Symptoms Social History Tobacco Use [...] - Angelica Blanco, - 08/07/2020 1916 EST call center rn message: Patient's Fermin called several hours after [...] trouble swallowing. I spoke with GI attending documentation billing clerk. Recommendations included going to the ER if [...] [facility] Adult Primary Care - [address] [phone] Carrington Calderon MD [address] [phone] 02/27/2024 8:30 EDT Telemedicine [facility] Sleep Program - [address] 306431 Dwight Colbert [address] [place] [address] [phone] 02/29/2024 10:30 EDT Appointment [facility] Radiology Nuclear Medicine and PET [address] 155041 02/29/2024 14:30 EDT Appointment [facility] Radiology Nuclear Medicine and PET [address] 775291 03/01/2024 8:00 EDT Appointment [facility] Radiology Nuclear Medicine and PET [address] 187301 03/01/2024 9:30 EDT Appointment [facility] Radiology Nuclear Medicine and PET [address] [phone] documented as of this encounter Visit Diagnoses Not on filedocumented in this encounter
--- OUTSIDE RECORDS SUMMARY | 2024-02-06 13:36 | XMS_ITS | Encounter Summary ---
Author Organization [facility] Address [address] [place] [address] Care Team Providers Care Carbonation Equipment Operator Name Role Phone Unavailable Primary [...] [facility] Adult Primary Care - [address] 054001 Carrington Calderon MD [address] [phone] 02/27/2024 8:30 EDT Telemedicine [facility] Sleep Program - [address] [phone] Dwight Colbert [address] [place] [phone] 02/29/2024 10:30 EDT Appointment [facility] Radiology Nuclear Medicine and PET - [address] [phone] 02/29/2024 14:30 EDT Appointment [facility] Radiology Nuclear Medicine and PET - [address] [phone] 03/01/2024 8:00 EDT Appointment [facility] Radiology Nuclear Medicine and PET - [facility] [address] [place], [place] [phone] 03/01/2024 9:30 EDT Appointment [facility] Radiology Nuclear Medicine and PET - [address] [phone] documented as of this encounter Visit Diagnoses Not on filedocumented in this encounter
--- OUTSIDE RECORDS SUMMARY | 2024-02-06 13:36 | XMS_ITS | Encounter Summary ---
Author Organization [facility] Address [address] [place] [address] Care Team Providers Care Tsa Screener Name Role Phone Unavailable Primary Care Provider Unavailabl e Reason for Visit * Reason Onset Date Comments No Show 06/27/2020 Encounter Details Date Type Department Care Team (Late st Contact Info) Description 06/27/2020 Telephone [facility] Adult Primary Care - [address] 346881 Tonja Alejandro PA-C [address] [place] [address] [place] [phone] No Show Social History Tobacco Use [...] [facility] Adult Primary Care - [address] [address] Carrington Calderon MD [address] [phone] 02/27/2024 8:30 EDT Telemedicine [facility] Sleep Program - [address] [address] Dwight Colbert [address] [place] [address] 02/29/2024 10:30 EDT Appointment [facility] Radiology Nuclear Medicine and PET - [address] 832771 02/29/2024 14:30 EDT Appointment [facility] Radiology Nuclear Medicine and PET [address] [phone] 03/01/2024 8:00 EDT Appointment [facility] Radiology Nuclear Medicine and PET - [address] 828561 03/01/2024 9:30 EDT Appointment [facility] Radiology Nuclear Medicine and PET [address] 780441 documented as of this encounter Visit Diagnoses Not on filedocumented in this encounter
--- OUTSIDE RECORDS SUMMARY | 2024-02-06 13:36 | XMS_ITS | Encounter Summary ---
Author Organization [facility] Address [address] [place] [address] Care Team Providers Care Washer And Crusher Tender Name Role Phone Unavailable Primary Care Provider Unavailabl e Reason for Visit * Reason Comments Emesis Seen tuesday for n/v/ d back tonight for continued n/v/d, her pcp recommended she come in for reeval and possible scan. Pt reports diffuse abdominal pain. Encounter Details Date Type Department Care Team (Late st Contact Info) Description 08/06/2020 3:57 EST - 08/06/2020 8:59 EST Emergency [facility] Emergency Department - [facility] [address] [place] [address] Kylah Whitaker PA-C 111 [facility], Level 1 [place] [phone] Jeremiah Hein PA-C [address] [place] [phone] Non-intractable vomiting with nausea, unspecified vomiting type [...] through Care Everywhere. * Nausea and Vomiting (Bulgarian) documented in this encounter Medications at Time [...] Means Destination Comment s Home or Self Penitentiary driving. documented in this encounter ED Notes [...] Abnormality Status --------- ------ POCT URINE DIPSTICK, CLI...[[id number]] POCT CSN BARCODE URINE D...[[id number]] Please view results for these tests on the individual orders. POCT TEST, CLINITEK ORDER Narrative: The following orders were created for panel order POCT TEST, CLINITEK ORDER. Procedure Abnormality Status --------- ------ POCT TEST, CLI...[[id number]] POCT CSN BARCODE URINE P...[[id number]] Please view results for these tests on [...] results. * Angelica Stone RN - 08/06/2020 6512 EST I assumed care of pt at this time, the pt is sleeping. Visitor at the bedside. * Mignon Young RN - 08/06/2020 0658 EST Report given MARCELO Doimnguez * Kylah Whitaker PA-C - 08/06/2020 0443 EST This patient received an evaluation and medical screening exam for emergent medical conditions at the [facility] on 08/06/2020 Scribe attestation: This documentation [...] [facility] Adult Primary Care - [address] [phone] Carrington Calderon MD 1 [facility] 1 [place] [address] 02/27/2024 8:30 EDT Telemedicine [facility] Sleep Program - [address] [phone] Dwight Colbert [address] [place] [address] [phone] 02/29/2024 10:30 EDT Appointment [facility] Radiology Nuclear Medicine and PET [address] [id number] 02/29/2024 14:30 EDT Appointment [facility] Radiology Nuclear Medicine and PET [address] [id number] 03/01/2024 8:00 EDT Appointment [facility] Radiology Nuclear Medicine and PET [address] [id number] 03/01/2024 9:30 EDT Appointment [facility] Radiology Nuclear Medicine and PET [address] [phone] documented as of this encounter Procedures Procedure [...] No acute fracture or suspicious osseous lesion. Fringe Weaver: No additional pathology identified. Procedure Note Broderick [...] No acute fracture or suspicious osseous lesion. Fringe Weaver: No additional pathology identified. IMPRESSION 1. No acute abnormality identified in the abdomen or pelvis. 2. Small nonobstructing left intrarenal calculus. 3. Small hiatal hernia. I have personally reviewed the images and the above interpretation andagree with the findings. Kylah Whitaker PA-C IMG CT ORDERABLES * LACTIC ACID (08/06/2020 5:06 EST) Lactic Acid 1.5 <=2.0 mmol/L 08/06/2020 5:29 EST [facility] Blood VENOUS BLOOD / Unknown Venipuncture / Unknown 08/06/2020 5:06 EST 08/06/2020 5:17 EST Kylah Whitaker PA-C CHEMISTRY & BLOOD GA S ORDERABLES [facility] [address] [place] [address] * LIPASE (08/06/2020 4:13 EST) Lipase 141 <251 U/L 08/06/2020 5:00 [facility] Blood VENOUS BLOOD / Unknown Venipuncture / Unknown 08/06/2020 4:13 EST 08/06/2020 4:19 EST Kylah Whitaker PA-C CHEMISTRY & BLOOD GA S ORDERABLES Performing Organization Address [facility] Co de Phone Number [facility] [address] [place] [address] * (ABNORMAL) COMPREHENSIVE METABOLIC PANEL (CMP) (08/06/2020 4:13 EST) Sodium 139 136 - 145 mEq/L 08/06/2020 5:00 [facility] Potassium 3.4(L) 3.5 - 5.0 mEq/L 08/06/2020 5:00 [facility] Comment: NOTE: Interpret with caution. Prolonged sample storage may alter the result. Chloride 99 96 - 110 mEq/L 08/06/2020 5:00 [facility] CO2 Total 25 22 - 32 mEq/L 08/06/2020 5:00 [facility] Comment: NOTE: Interpret with caution. Prolonged sample storage may alter the result. Glucose 255(H) 70 - 100 mg/dL 08/06/2020 5:00 [facility] BUN 12 10 - 26 mg/dL 08/06/2020 5:00 [facility] Creatinine 0.52 0.52 - 1.04 mg/dL 08/06/2020 5:00 [facility] eGFR 124 >60 mL/min/1.7 3m2 08/06/2020 5:00 [facility] Comment:eGFR calculated gil curtis CKD-EPI equation for non- Americans. Multiply eGFR by 1.16 for patients. Total Protein 7.0 6.3 - 8.2 g/dL 08/06/2020 5:00 [facility] Albumin 4.2 3.4 - 4.9 g/dL 08/06/2020 5:00 [facility] Alkaline Phosphatase 92 38 - 126 U/L 08/06/2020 5:00 [facility] AST 29 15 - 46 U/L 08/06/2020 5:00 [facility] ALT 23 <35 U/L 08/06/2020 5:00 [facility] Bilirubin, Total 0.6 <1.4 mg/dL 08/07/19 5:00 [facility] Calcium 9.4 8.5 - 10.5 mg/dL 08/06/2020 5:00 [facility] Calculated Calcium 9.2 8.5 - 10.5 mg/dL 08/06/2020 5:00 [facility] Blood VENOUS BLOOD / Unknown Venipuncture / Unknown 08/06/2020 4:13 EST 08/06/2020 4:19 EST Kylah Whitaker PA-C CHEMISTRY & BLOOD GA S ORDERABLES [facility] [address] [place] [address] * (ABNORMAL) COMPLETE BLOOD COUNT AND DIFFERENTIAL (08/06/2020 4:13 EST) WBC 13.81(H) 4.00 - 12.40 K/cmm 08/06/2020 5:13 [facility] RBC 4.57 3.86 - 5.04 M/cmm 08/06/2020 5:13 [facility] Hemoglobin 14.0 11.6 - 15.2 gm/dL 08/06/2020 5:13 [facility] HCT 39.4 34.9 - 44.4 % 08/06/2020 5:13 [facility] MCV 86 81 - 98 fl 08/06/2020 5:13 [facility] MCH 30.6 26.7 - 33.3 pg 08/06/2020 5:13 [facility] MCHC 35.5 32.1 - 35.9 gm/dL 08/06/2020 5:13 [facility] RDW-CV 12.1 <14.7 % 08/06/2020 5:13 [facility] RDW-SD 38.3 <50.4 fl 08/06/2020 5:13 [facility] PLT 427(H) 141 - 377 K/cmm 08/06/2020 5:13 [facility] MPV 9.9 9.5 - 12.7 fl 08/06/2020 5:13 [facility] % Neutrophils 51.5 % 08/06/2020 5:13 [facility] % Lymphocytes 36.1 % 08/06/2020 5:13 [facility] % Monocytes 9.1 % 08/06/2020 5:13 [facility] % Eosinophils 2.2 % 08/06/2020 5:13 [facility] % Basophils 0.7 % 08/06/2020 5:13 [facility] % Immature Grans 0.4 % 08/07/19 5:13 [facility] Absolute Neutrophils 7.11 2.20 - 8.85 K/cmm 08/06/2020 5:13 [facility] Absolute Lymphocytes 4.98(H) 1.09 - 3.30 K/cmm 08/06/2020 5:13 [facility] Absolute Monocytes 1.26(H) 0.10 - 0.80 K/cmm 08/06/2020 5:13 [facility] Absolute Eosinophils 0.31 0.03 - 0.61 K/cmm 08/06/2020 5:13 [facility] ABS Basophils 0.10 0.01 - 0.11 K/cmm 08/06/2020 5:13 [facility] Absolute Immature Grans 0.05 0.00 - 0.06 K/cmm 08/06/2020 5:13 [facility] Type of Differential: Auto 08/06/2020 5:13 [facility] Blood VENOUS BLOOD / Unknown Venipuncture / Unknown 08/06/2020 4:13 EST 08/06/2020 4:19 EST Kylah Julianne PA-C PACKAGES & DNA PROBE ORDERABLES Performing Organization Address [facility]/ZIP Co de Phone Number [facility] [address] [place] [address] * HOLD SST (08/06/2020 4:13 EST) Hold Hold 08/06/2020 5:32 EST [facility] Blood VENOUS BLOOD / Unknown Venipuncture / Unknown 08/06/2020 4:13 EST 08/06/2020 4:19 EST Kylah Larow PA-C LAB INFO SERVICE AND SUPPORT & PHONE RESULT Performing Organization Address [facility]/ZIP Co de Phone Number [facility] [address] [place] [address] * HOLD LAVENDER TOP (08/06/2020 4:13 EST) Hold Hold 08/06/2020 5:32 EST [facility] Blood VENOUS BLOOD / Unknown Venipuncture / Unknown 08/06/2020 4:13 EST 08/06/2020 4:19 EST Kylah Larow PA-C LAB INFO SERVICE AND SUPPORT & PHONE RESULT Performing Organization Address [facility]/ZIP Co de Phone Number [facility] [address] [place] [address] * HOLD GREEN TOP (08/06/2020 4:13 EST) Hold Hold 08/06/2020 5:32 EST [facility] Blood VENOUS BLOOD / Unknown Venipuncture / Unknown 08/06/2020 4:13 EST 08/06/2020 4:19 EST Kylah Larow PA-C LAB INFO SERVICE AND SUPPORT & PHONE RESULT [facility] [address] [place] [address] * HOLD BLUE TOP (08/06/2020 4:13 EST) Hold Hold 08/06/2020 5:32 EST [facility] Blood VENOUS BLOOD / Unknown Venipuncture / Unknown 08/06/2020 4:13 EST 08/06/2020 4:19 EST Kylah Whitaker PA-C LAB INFO SERVICE AND SUPPORT & PHONE RESULT [facility] [address] [place] [address] documented in this encounter Visit Diagnoses Diagnosis [...]
--- OUTSIDE RECORDS SUMMARY | 2024-02-06 13:36 | XMS_ITS | Encounter Summary ---
Author Organization [facility] Address [address] [place] [address] Care Team Providers Care Ems Helicopter Pilot Name Role Phone Unavailable Primary Care Provider Unavailabl e Reason for Visit * Reason Comments Foot Problem Encounter Details Date Type Department Care Team (Latest Contact Info) Description 07/02/2020 14:30 EST Office Visit [facility] Foot & Ankle Program - [address] [address] Elza Navarro DPM [address] [place] [phone] Osteomyelitis of left foot, unspecified type ([facility]) (Primary Dx); Type 2 diabetes mellitus with diabetic polyneuropathy, with long-term current use of insulin ([facility]) Social History Tobacco Use Types Packs/Day [...] 1. Osteomyelitis of left foot, unspecified type ([facility]) 2. Type 2 diabetes mellitus with diabetic polyneuropathy, with long-term current use of insulin ([facility]) No orders of the defined [...] [facility] Adult Primary Care - [address] [phone] Carrington Calderon MD 1 [facility] [employer] [facility] Level 1 [place] [phone] 02/27/2024 8:30 EDT Telemedicine [facility] Sleep Program - [address] [place] [address] Dwight Colbert [address] [place] [address] 02/29/2024 10:30 EDT [facility]ointment [facility] Radiology Nuclear Medicine and PET - [address] [address] 02/29/2024 14:30 EDT Appointment [facility] Radiology Nuclear Medicine and PET - [address] [id number] 03/01/2024 8:00 EDT Appointment [facility] Radiology Nuclear Medicine and PET - [address] [id number] 03/01/2024 9:30 EDT Appointment [facility] Radiology Nuclear Medicine and PET - [address] [address] documented as of this encounter Visit Diagnoses Diagnosis Osteomyelitis of left foot, unspecified type ([facility])- Primary Type 2 diabetes mellitus with diabetic polyneuropathy, with long-term current use of insulin ([facility]) documented in this encounter
--- OUTSIDE RECORDS SUMMARY | 2024-02-06 13:36 | XMS_ITS | Encounter Summary ---
Author Organization [facility] Address [address] [place] [address] Care Team Providers Care Senior Research Analyst Name Role Phone Unavailable Primary Care Provider Unavailabl e Reason for Visit * Reason Onset Date Comments Surgery Scheduling 06/30/2020 Encounter Details Date Type Department Care Team (Late st Contact Info) Description 06/30/2020 Telephone [facility] Women's Services [address] [phone] Charu Flynn MD 111 [facility], Level 4 [place] [phone] Surgery Scheduling Social History Tobacco [...] [facility] - [address] [address] Carrington Calderon MD 1 [facility] 1 [place] [address] 02/27/2024 8:30 EDT Telemedicine [facility] Sleep Program - [address] [address] Dwight Colbert [address] [place] [address] [phone] 02/29/2024 10:30 EDT Appointment [facility] Radiology Nuclear Medicine and PET [address] [id number] 02/29/2024 14:30 EDT Appointment [facility] Radiology Nuclear Medicine and PET [address] [id number] 03/01/2024 8:00 EDT Appointment [facility] Radiology Nuclear Medicine and PET - [address] [id number] 03/01/2024 9:30 EDT Appointment [facility] Radiology Nuclear Medicine and PET [address] [phone] documented as of this encounter Visit Diagnoses Not on filedocumented in this encounter
--- OUTSIDE RECORDS SUMMARY | 2024-02-06 13:36 | XMS_ITS | Encounter Summary ---
Author Organization [facility] Address [address] [place] [address] Care Team Providers Care Process Mold Technician Name Role Phone Unavailable Primary Care Provider Unavailabl e Reason for Visit * Reason Comments Telemedicine Video Visit * Consult (Routine) - Order Cancelled Specialty Diagnoses / Procedures Referred By Contlesli t Referred To Contact Endocrinology Diagnoses Type 2 diabetes mellitus with hyperglycemia, with long-term current use of insulin ([facility]) Sara Zafar NP [address] [place] [phone] [facility] [address] [place] [phone] Referral ID Status Reason Start Date Expiration Date Visits Requested Visits Authorized [id number] Order Cancelled Specialty Services Required 0 1 1 Encounter Details Date Type Department Care Team (Late st Contact Info) Description 07/01/2020 13:00 EST Nutrition [facility] Endocrinology - [address] CDE [address] [place] [phone] Type 2 diabetes mellitus with hyperglycemia, with long-term current use of insulin ([facility]) (Primary Dx) Social History Tobacco Use [...] Bran cereal with milk and coffee Lunch: Hanalei sandwich on whole grain bread Dinner: Chicken, [...] [facility] - [address] [address] Carrington Calderon MD [address] [phone] 02/27/2024 8:30 EDT Telemedicine [facility] Sleep Program - [address] 329171 Dwight Colbert [address] [place] [address] [phone] 02/29/2024 10:30 EDT Appointment [facility] Radiology Nuclear Medicine and PET [address] [id number] 02/29/2024 14:30 EDT Appointment [facility] Radiology Nuclear Medicine and PET [address] [id number] 03/01/2024 8:00 EDT Appointment [facility] Radiology Nuclear Medicine and PET [address] [id number] 03/01/2024 9:30 EDT Appointment [facility] Radiology Nuclear Medicine and PET [address] [phone] documented as of this encounter Visit Diagnoses Diagnosis Type 2 diabetes mellitus with hyperglycemia, with long-term current use of insulin ([facility])- Primary documented in this encounter
--- OUTSIDE RECORDS SUMMARY | 2024-02-06 13:36 | XMS_ITS | Encounter Summary ---
Author Organization [facility] Address [address] [place] [address] Care Team Providers Care Field Interviewer Name Role Phone Unavailable Primary Care Provider Unavailabl e Reason for Visit * Reason Onset Date Comments COVID-19 06/30/2020 Encounter Details Date Type Department Care Team (Late st Contact Info) Description 06/30/2020 Orders Only [facility] Women's Services [address] [address] Susana Tomlinson, RN Sterilization (Primary Dx) Social [...] [facility] - [address] [phone] Carrington Calderon MD [address] [phone] 02/27/2024 8:30 EDT Telemedicine [facility] Sleep Program - [address] [address] Dwight Colbert [address] [place] [address] 02/29/2024 10:30 EDT [facility]ointment [facility] Radiology Nuclear Medicine and PET - [address] [address] 02/29/2024 14:30 EDT [facility]ointment [facility] Radiology Nuclear Medicine and PET - [address] [id number] 03/01/2024 8:00 EDT [facility]ointment [facility] Radiology Nuclear Medicine and PET - [address] [phone] 03/01/2024 9:30 EDT [facility]ment [facility] Radiology Nuclear Medicine and PET - [address] [phone] documented as of this encounter Visit Diagnoses Diagnosis Sterilization- Primary documented in this encounter
--- OUTSIDE RECORDS SUMMARY | 2024-02-06 13:36 | XMS_ITS | Encounter Summary ---
Author Organization [facility] Address [address] [place] [address] Care Team Providers Care Conservation Or Heritage Architect Name Role Phone Unavailable Primary Care [...] Visit [facility] Adult Primary Care - [address] [phone] Carrington Calderon MD [address] [phone] 02/27/2024 8:30 EDT Telemedicine [facility] Sleep Program - [address] 175671 Dwight Colbert [address] [place] [address] [phone] 02/29/2024 10:30 EDT Appointment [facility] Radiology Nuclear Medicine and PET - [address] [id number] 02/29/2024 14:30 EDT Appointment [facility] Radiology Nuclear Medicine and PET - [address] [id number] 03/01/2024 8:00 EDT Appointment [facility] Radiology Nuclear Medicine and PET - [facility] [address] [place], [place] [phone] 03/01/2024 9:30 EDT Appointment [facility] Radiology Nuclear Medicine and PET - [address] [phone] documented as of this encounter Visit Diagnoses Not on filedocumented in this encounter
--- OUTSIDE RECORDS SUMMARY | 2024-02-06 13:36 | XMS_ITS | Encounter Summary ---
Author Organization [facility] Address [address] [place] [address] Care Team Providers Care Baggageman Name Role Phone Unavailable Primary Care Provider [...] [facility] Adult Primary Care - [address] [phone] Carrington Calderon MD [address] [phone] 02/27/2024 8:30 EDT Telemedicine [facility] Sleep Program - [address] [phone] Dwight Colbert [address] [place] [address] [phone] 02/29/2024 10:30 EDT Appointment [facility] Radiology Nuclear Medicine and PET - [address] [phone] 02/29/2024 14:30 EDT Appointment [facility] Radiology Nuclear Medicine and PET - [address] [phone] 03/01/2024 8:00 EDT Appointment [facility] Radiology Nuclear Medicine and PET - [facility] [address] [place], [place] [phone] 03/01/2024 9:30 EDT Appointment [facility] Radiology Nuclear Medicine and PET - [address] [phone] documented as of this encounter Visit Diagnoses Not on filedocumented in this encounter
--- OUTSIDE RECORDS SUMMARY | 2024-02-06 13:36 | XMS_ITS | Encounter Summary ---
Author Organization [facility] Address [address] [place] [address] Care Team Providers Care Welfare Worker Name Role Phone Unavailable Primary Care [...] 6:47 EST - 08/04/2020 11:43 EST Emergency [facility] Emergency Department - [address] [address] Benita Sol MD [address] [place] [address], [address] [place] [address] Non-intractable vomiting with nausea, unspecified [...] 08/04/2020 11:31 EST -Thank you for choosing [facility] for your medical care today. You [...] foot. * Valencia Red RN - 08/04/2020 0924 EST Pt resting comfortably in stretcher at [...] at the [facility] on 08/04/2020. This note was created [...] for UTI. The patient presented to the [facility] ED endorsing nausea with emesis. Per [...] p.o. intake of ice water without difficulty. [id number] ultrasound was performed and showed no evidence [...] decompensation, and the patient's wishes. Discharged * Tnoja Rand RN - 08/04/2020 0705 EST Blood drawn via saline lock per protocol, tiger, blue, red, green and purple tube(s) sent to lab per order. documented in this encounter Plan of Treatment Upcoming Encounters Date Type Department Care Team (Late st Contact Info) Description 02/21/2024 9:45 EDT Office Visit [facility] Adult Primary Care - [address] [id number] Carrington Calderon MD [address] [phone] 02/27/2024 8:30 EDT Telemedicine [facility] Sleep Program - [address] [id number] Dwight Colbert [address] [place] [id number] 02/29/2024 10:30 EDT Appointment [facility] Radiology Nuclear Medicine and PET [address] [id number] 02/29/2024 14:30 EDT Appointment [facility] Radiology Nuclear Medicine and PET [address] [id number] 03/01/2024 8:00 EDT Appointment [facility] Radiology Nuclear Medicine and PET - [address] [id number] 03/01/2024 9:30 EDT Appointment [facility] Radiology Nuclear Medicine and PET [address] [id number] documented as of this encounter Procedures Procedure [...] EST) 08/06/2020 10:3 0 EST Scan 2 Butcher PROCEDURE/MINOR BRAULIO GICAL ORDERABLES * POCT US ED ABDOMEN (08/04/2020 11:01 EST) Anatomical Region Laterality Modality Ultrasound 08/04/2020 11:0 5 EST Narrative 08/04/2020 19:06 EST [facility] - Ultrasound Exam Date: 08/04/2020 Exam Type: POCT US ED ABDOMEN Satellite Tv Technician Installer: Asuncion Telles Attending: Benita Sol MD Worksheet: [id number] (POCT US ED ABDOMEN) Exam Type: ?? [...] exam was performed and interpreted by the [facility] ED Staff Procedure Note Ismael Ji MD - 08/04/2020 [facility] - Ultrasound Exam Date: 08/04/2020 Exam Type: POCT US ED ABDOMEN Satellite Tv Technician Installer: Asuncion Telles Attending: Benita Sol MD Worksheet: [id number] (POCT US ED ABDOMEN) Exam Type: Clinically [...] exam was performed and interpreted by the [facility] ED Staff Asuncion Telles MD IMG POCT US ORDERABL ES * HOLD SST (08/04/2020 7:18 EST) Hold Hold 08/04/2020 8:32 EST [facility] Blood VENOUS BLOOD / Unknown 08/04/2020 7:18 EST 08/04/2020 7:18 EST Benita Sol MD LAB INFO SERVICE AND SUPPORT & PHONE RESULT Performing Organization Address [facility] Co de Phone Number [facility] [address] [place] [address] * QUANT BETA HCG, (08/04/2020 7:18 EST) Beta HCG Quant, <5 <5 mIU/ml 08/04/2020 8:58 EST [facility] Comment: NOTE: : [...] ORDERABLES Performing Organization Address [facility]/ZIP Co de Phone Number [facility] [address] [place] [address] * EKG 12-LEAD (08/04/2020 7:08 EST) 08/04/2020 7:08 EST Narrative [facility] EKG - 08/06/2020 10:26 EST ?[facility] Emergency ? Test Date: ?2020-08-04 Pat Name: ? CRISTY LUO ?Department: ?? ED ? Room: ? AC16 Gender: ? Female ? Ammonia Technician: ?? [id number] : ?1985 ? Requested By: GILDA Forman Order Number: [id number] ? Reading MD: ?? LORI MARY MD ? Measurements Intervals ?Pool ? Rate: ? 56 ? P: ?4 ME: ? 135 ?QRS: ?14 QRSD: ? 92 [...] Note Lori Mary MD - 08/06/2020 [facility] Emergency Test Date: 2020-08-04 Pat Name: CRISTY LUO Department: ED Room: [facility] Gender: Female Ammonia Technician: [id number] : 1985 Requested By: GILDA Forman Order Number: [id number] Reading MD: LORI MARY MD Measurements Intervals Pool Rate: 56 P: 4 ME: 135 QRS: 14 QRSD: 92 T: 7 QT: 447 QTc: 433 Interpretive Statements SINUS BRADYCARDIA WITH OCCASIONAL SUPRAVENTRICULAR PREMATURE COMPLEXES Compared to ECG 06/13/2020 15:41:07 Sinus rhythm no longer present I reviewed the tracing and have either agreed or edited the findings inthis report. Electronically Signed On 08-06-2020 10:26:58 EST by LORI VALLE. Benita Sol MD CARDIAC ECG ORDERABL ES [facility] EKG * LIPASE (08/04/2020 7:02 EST) Lipase 131 <251 U/L 08/04/2020 8:55 [facility] Blood VENOUS BLOOD / Unknown Venipuncture / Unknown 08/04/2020 7:02 EST 08/04/2020 7:05 EST Asuncion Telles MD CHEMISTRY & BLOOD GA S ORDERABLES Performing Organization Address [facility] de Phone Number [facility] [address] [place] [address] * (ABNORMAL) HEPATIC FUNCTION PANEL (ALB,ALK PHOS,ALT,AST,DBIL,TOT SAL,TOT PROT) (08/04/2020 7:02 EST) Pathologist [facility] Total Protein 7.0 6.3 - 8.2 g/dL 08/04/2020 8:55 [facility] Albumin 4.1 3.4 - 4.9 g/dL 08/04/2020 8:55 [facility] Bilirubin, Total <0.5 <1.4 mg/dL 08/05/19 8:55 [facility] Conjugated Bilirubin 0.0 0.0 - 0.3 mg/dL 08/04/2020 8:55 [facility] Unconjugated Bilirubin 0.2 0.0 - 1.1 mg/dL 08/04/2020 8:55 [facility] Alkaline Phosphatase 99 38 - 126 U/L 08/04/2020 8:55 [facility] ALT 16 <35 U/L 08/04/2020 8:55 [facility] AST 62(H) 15 - 46 U/L 08/04/2020 8:55 [facility] Blood VENOUS BLOOD / Unknown Venipuncture / Unknown 08/04/2020 7:02 EST 08/04/2020 7:05 EST Asuncion Telles MD CHEMISTRY & BLOOD GA S ORDERABLES Performing Organization Address City/[facility]/ZIP Co de Phone Number [facility] [address] [id number] * LACTIC ACID (08/04/2020 7:02 EST) Lactic Acid 1.9 <=2.0 mmol/L 08/04/2020 7:31 EST [facility] Blood VENOUS BLOOD / Unknown Venipuncture / Unknown 08/04/2020 7:02 EST 08/04/2020 7:05 EST Andrés Garica MD CHEMISTRY & BLOOD GA S ORDERABLES [facility] [address] [place] [address] * (ABNORMAL) SCREENING GLUCOSE (08/04/2020 7:02 EST) Glucose, Screening 325(H) 70 - 100 mg/dL 08/04/2020 7:34 EST [facility] Comment:Elevated screening g lucose value greater than 180 mg/dl, please order follow up Hemoglobin A1C. Blood VENOUS BLOOD / Unknown Venipuncture / Unknown 08/04/2020 7:02 EST 08/04/2020 7:05 EST Andrés Garcia MD CHEMISTRY & BLOOD GA S ORDERABLES [facility] [address] [place] [address] * MAGNESIUM (08/04/2020 7:02 EST) Magnesium 1.7 1.7 - 2.8 mg/dL 08/04/2020 7:31 EST [facility] Blood VENOUS BLOOD / Unknown Venipuncture / Unknown 08/04/2020 7:02 EST 08/04/2020 7:05 EST Andrés Garcia MD CHEMISTRY & BLOOD GA S ORDERABLES [facility] [address] [place] [address] * TROPONIN I (08/04/2020 7:02 EST) Troponin I (ng/mL) <0.034 <0.034 ng/mL 08/04/2020 7:43 EST [facility] Blood VENOUS BLOOD / Unknown Venipuncture / Unknown 08/04/2020 7:02 EST 08/04/2020 7:05 EST Narrative [facility] - 08/04/2020 7:43 EST The results of this assay can be falsely lowered due to the consumption of Biotin. Andrés Garcia MD CHEMISTRY & BLOOD GA S ORDERABLES Performing Organization Address City/[facility] Co de Phone Number [facility] [address] [place] [address] * ELECTROLYTES (08/04/2020 7:02 EST) Sodium 138 136 - 145 mEq/L 08/04/2020 7:31 [facility] Potassium 4.1 3.5 - 5.0 mEq/L 08/04/2020 7:31 [facility] Chloride 103 96 - 110 mEq/L 08/04/2020 7:31 [facility] CO2 Total 24 22 - 32 mEq/L 08/04/2020 7:31 [facility] Blood VENOUS BLOOD / Unknown Venipuncture / Unknown 08/04/2020 7:02 EST 08/04/2020 7:05 EST Adnrés Garcia MD CHEMISTRY & BLOOD GA S ORDERABLES Performing Organization Address City/[facility]/ZIP Co de Phone Number [facility] [address] [place] [address] * CREATININE (08/04/2020 7:02 EST) Creatinine 0.55 0.52 - 1.04 mg/dL 08/04/2020 7:31 [facility] eGFR 122 >60 mL/min/1.7 3m2 08/04/2020 7:31 [facility] Comment:eGFR calculated gil curtis CKD-EPI equation for non- Americans. Multiply eGFR by 1.16 for patients. Blood VENOUS BLOOD / Unknown Venipuncture / Unknown 08/04/2020 7:02 EST 08/04/2020 7:05 EST Andrés Garcia MD CHEMISTRY & BLOOD GA S ORDERABLES Performing Organization Address City/[facility] Co de Phone Number [facility] [address] [place] [address] * BUN (08/04/2020 7:02 EST) BUN 12 10 - 26 mg/dL 08/04/2020 7:31 EST [facility] Blood VENOUS BLOOD / Unknown Venipuncture / Unknown 08/04/2020 7:02 EST 08/04/2020 7:05 EST Andrés Garcia MD CHEMISTRY & BLOOD GA S ORDERABLES Performing Organization Address [facility] de Phone Number [facility] [address] [place] [address] * (ABNORMAL) COMPLETE BLOOD COUNT AND DIFFERENTIAL (08/04/2020 7:02 EST) WBC 16.23(H) 4.00 - 12.40 K/cmm 08/04/2020 7:23 [facility] RBC 4.57 3.86 - 5.04 M/cmm 08/04/2020 7:23 [facility] Hemoglobin 14.1 11.6 - 15.2 gm/dL 08/04/2020 7:23 [facility] HCT 39.2 34.9 - 44.4 % 08/04/2020 7:23 [facility] MCV 86 81 - 98 fl 08/04/2020 7:23 [facility] MCH 30.9 26.7 - 33.3 pg 08/04/2020 7:23 [facility] MCHC 36.0(H) 32.1 - 35.9 gm/dL 08/04/2020 7:23 [facility] RDW-CV 12.1 <14.7 % 08/04/2020 7:23 [facility] RDW-SD 37.6 <50.4 fl 08/04/2020 7:23 [facility] PLT 395(H) 141 - 377 K/cmm 08/04/2020 7:23 [facility] MPV 10.0 9.5 - 12.7 fl 08/04/2020 7:23 [facility] % Neutrophils 70.8 % 08/04/2020 7:23 [facility] % Lymphocytes 20.3 % 08/04/2020 7:23 [facility] % Monocytes 6.0 % 08/04/2020 7:23 [facility] % Eosinophils 1.8 % 08/04/2020 7:23 [facility] % Basophils 0.5 % 08/04/2020 7:23 [facility] % Immature Grans 0.6 % 08/05/19 7:23 [facility] Absolute Neutrophils 11.51(H) 2.20 - 8.85 K/cmm 08/04/2020 7:23 [facility] Absolute Lymphocytes 3.29 1.09 - 3.30 K/cmm 08/04/2020 7:23 [facility] Absolute Monocytes 0.97(H) 0.10 - 0.80 K/cmm 08/04/2020 7:23 [facility] Absolute Eosinophils 0.29 0.03 - 0.61 K/cmm 08/04/2020 7:23 [facility] ABS Basophils 0.08 0.01 - 0.11 K/cmm 08/04/2020 7:23 [facility] Absolute Immature Grans 0.09(H) 0.00 - 0.06 K/cmm 08/04/2020 7:23 [facility] Type of Differential: Auto 08/04/2020 7:23 [facility] Blood VENOUS BLOOD / Unknown Venipuncture / Unknown 08/04/2020 7:02 EST 08/04/2020 7:05 EST Andrés Garcia MD PACKAGES & DNA PROBE ORDERABLES Performing Organization Address City/[facility]/ZIP Co de Phone Number [facility] [address] [place] [address] * (ABNORMAL) POCT GLUCOSE, INTERFACED (08/04/2020 6:59 EST) Glucose, POC 328(H) 70 - 100 mg/dL 08/04/2020 7:02 EST [facility] product marketing manager ID [id number] 08/04/2020 7:02 EST [facility] HN LAB POC COMMENT (GLUCOSE) Test Performed by Nursing Services 08/04/2020 7:02 EST [facility] Blood CAPILLARY BLOOD / Unknown 08/04/2020 6:59 EST 08/04/2020 7:02 EST Provider Unknown POINT OF CARE TEST O RDERABLES Performing Organization Address City/[facility] Co de Phone Number [facility] [address] [place] [address] documented in this encounter Visit Diagnoses Diagnosis [...]
--- OUTSIDE RECORDS SUMMARY | 2024-02-06 13:36 | XMS_ITS | Encounter Summary ---
Author Organization [facility] Address [address] [place] [address] Care Team Providers Care Glaze Mixer Name Role Phone Unavailable Primary Care Provider Unavailabl e Reason for Referral * Radiology Services (Routine) - Closed Specialty Diagnoses / Procedures Referred By Contac t Referred To Contact Nuclear Medicine Diagnoses Generalized abdominal pain Emesis, persistent Type 2 diabetes mellitus with hyperosmolarity without coma, with long-term current use of insulin ([facility]) Procedures NM GASTRIC EMPTYING SOLID Broderick Irene MD [address] [place] [address] Referral ID Status Reason Start Date Expiration Date Visits Re quested Visits Authorized [id number] Closed 08/10/2020 1 1 Reason for Visit [...] Expiration Date Visits Re quested Visits Authorized [id number] 1 1 Encounter Details Date Type Department Care Team (Late st Contact Info) Description 08/08/2020 18:57 EST - 08/10/2020 13:[address] [facility] General Medicine Unit [address] [place] [address] Elise Charles MD 111 [facility], Level 1 [place] [address] Keshav Dumont MD [address] [address] Bouchra Costello MD [address] [address] Generalized abdominal pain (Primary Dx); Emesis, persistent; Type 2 diabetes mellitus with hyperosmolarity without coma, with long-term current use of insulin ([facility]); Dehydration; Gastroparesis Discharge Disposition: Home or Self [...] LR. There was initially some c/f possible PESTICIDE USE MEDICAL COORDINATOR hematemesis in the ED but pt clarified that while she didhave some e/o pink vomit on 4 days and then again 2 days PESTICIDE USE MEDICAL COORDINATOR, however she had not had any since. [...] Component Value Units Date/Time Bacterial Culture, Blood [[id number]] Collected: 08/08/202058 Lab Status: In process Specimen: Blood, Venous Updated: 08/08/202116 Bacterial Culture, Blood [[id number]] Collected: 08/08/202099 Lab Status: In process Specimen: Blood, Venous Updated: 08/08/202116 Upcoming Appointments Aug 12, 2020 10:30 PAT Call with [facility] PAT CALL ROOM 4 [facility] Pre-Surgical Testing (--) [address] [facility] [address] Aug 17, 2020 9:00 Mobile Lab Testing with [facility] Through Testing [facility] - JR ALICEA STAMFORD ([facility] All Departments) [address] [place] [address] Shredder Tender Peat: Review appointment date and time above. Arrival Instructions: Before I let you go, I need to read you a set of instructions. Please provide me with your full attention. The testing site is located at [address] [place] [address]. When you pull into the entrance stay [...] Follow Up Visit with Sara Zafar APRN [facility] Endocrinology - [place] (--) [address] [place] [facility] [address] Sep 04, 2020 16:15 (Arrive by 16:00) Post Op Visit with Clarke Joseph MD [facility] Women's Services [facility] (--) [address] [facility] [address] Sep 10, 2020 15:00 Office Visit with Elza Navarro DPM [facility] Foot & Ankle Program - [facility] (--) [address] [facility] [address] [place] [facility] [address] Follow-up appointments and procedures Amb Consult/Follow Up [...] Irene DO Internal Medicine PGY-1 Cortext preferred, #[id number] (via PAS) 08/10/20 11:11 Attestation: Pt seen and examined. I have reviewed Dr. Irene's note and agree with his summary asoutlined above. DOS 08/10/2020. Bouchra Costello MD, MPH documented in this encounter Discharge Instructions * Discharge Instr - AVS First Page* Broderick Irene MD - 08/10/2020 8:24 EST Please follow-up with your PCP as soon as able Please follow-up with your adjunct professor of voice We have ordered you a Gastric Emptying [...] any other concerns. Thank you for choosing [facility] for your care! documented in this [...] Type of housing (single family, condo, apartment, longterm, single room occupancy, [facility] funded hotel room, group skilled nursing) - duplex Who does the patient live with? Spouse and roommate Does the patient have access to their own bedroom/bathroom/kitchen - or is it shared with others? shared Name of housing complex (ex [employer] [facility], [facility], etc)- N/A Housing Authority/Managing Organization - N/A Community Care Providers (senior case manager, [facility] nurse, etc) name and [...] For Finances: No TRANSPORTATION: Transportation: Family CULTURAL, BAPTIST and/or LANGUAGE factors affecting health care/discharge planning: [...] Health Services: None DME Provider: None Pharmacy: [id number] - [facility] [address] [facility] [address] [facility] ([facility]) - [address] [address] Home Health: not prior to admission Other: none POST HOSPITAL TRANSITION PLAN: Home with support from spouse Accounting Auditor spoke to the patient's spouse. No home health needs identified at this time. Her spouse can transport her home when she is medically ready for discharge. PEGGY LAMAS RN CM MSN 08/09/2020 14:44 rollout manager * Bouchra Costello MD - 08/09/2020 [...] this morning. Tolerated a couple bites of andorran muffin as well as taking liquid PO [...] / drinking now - Push PO fluids --Martin 10 QID prn --Zofran 4 mg Q 8 prn - Consider outpatient EGD - Would likely benefit from gastric emptying study however unfortunately they are not offered on the weekends. If she continues to improve at her current rate will likely defer to outpatient. ?? #T2DM: A1c 9.7 07/28/20 --Continue dose reduced glargine 30 (from station captain 40) --Hold mealtime insulin while not taking PO --SSI --Gabapentin 100 BID and 300 at bedtime ?? #Anxiety: --station captain lorazepam 0.5 mg TID prn Code [...] study Broderick Irene, DO Internal Medicine PGY-1, #[id number] 08/09/20 9:56 Attestation: Pt seen and examined; [...] told years ago ??? Depression ??? Diabetes ([facility]) A1c 10.3 on 11/28/2019 - poorly controlled ??? Difficulty opening mouth 06/13/2020 pain with opening mouth wide ??? Does not exercise 06/13/2020 due to infected toe ??? History of general anesthesia ??? Hx of ectopic 06/20/2020 ??? Irritable bowel syndrome 06/13/2020 ? ? Nausea & vomiting occasionally ??? Obesity, unspecified ??? Osteomyelitis ([facility]) of left great toe ??? Peripheral [...] --D5 LR for 1L @ 100 cc/hr --Partlow 10 QID prn --Zofran 4 mg Q 8 prn #T2DM: A1c 9.7 07/28/20 --Dose reduce glargine to 30 from station captain 40 --Hold mealtime insulin while not taking PO --SSI --Gabapentin 100 BID and 300 at bedtime #Anxiety: --station captain lorazepam 0.5 mg TID prn VTE [...] UA consistent with starvation ketosis. Will decrease PESTICIDE USE MEDICAL COORDINATOR insulin. Initially concern for AMS but LP [...] exam for emergent medical conditions at the [facility] on 08/08/2020. This note was created [...] She has had two visits to the [facility] ED prior to today for [...] and repeat procedure Alternatives discussed: No treatment Hayward protocol: Procedure explained and questions answered to [...] for UTI. The patient presents to the [facility] ED endorsing abdominal pain accompanied by nausea w/emesis since early Tuesday morning. Of note, the patient has been evaluated at the [facility] ED twice this week prior [...] [facility] [place] [address] Carrington Calderon MD [address] [facility] 1 [place] [address] 02/27/2024 8:[address] [facility] Sleep Program - [address] [place] [address] [place] [address] Dwight Colbert [address] [place] [address] 02/29/2024 10:30 ED[facility] - [address] [address] 02/29/2024 14:30 EDT Appointment [facility] Radiology Nuclear Medicine and PET [address] [address] 03/01/2024 8:00 EDT Appointment [facility] Radiology Nuclear Medicine and PET - [address] [address] 03/01/2024 9:30 EDT Appointment [facility] Radiology Nuclear Medicine and PET - [address] [address] documented as of this encounter Procedures Procedure [...] for solid food. References: Manny et al. [place] Journal of Gastroenterology 2000. Kev et al. Gastroenterology 2006 Roshni et al. [place] Journal of Gastroenterology 2006. Narrative 09/09/2020 16:10 [...] for solid food. References: Manny et al. [place] Journal of Gastroenterology 2000. Kev et al. Gastroenterology 2006 Roshni et al. [place] Journal of Gastroenterology 2006. Broderick Irene MD IMG NM ORDERABLES * ECG REPORT - SCANNED (08/25/2020 13:23 EDT) 08/25/2020 13:2 3 EDT Scan 2 Drywall Finisher Foreman PROCEDURE/MINOR BRAULIO GICAL ORDERABLES * (ABNORMAL) POCT GLUCOSE, INTERFACED (08/10/2020 11:56 EST) Glucose, POC 157(H) 70 - 100 mg/dL 08/10/2020 12:01 [facility] electrical assembly technician ID [id number] 08/10/2020 12:01 EST [facility] HN LAB POC COMMENT (GLUCOSE) Test Performed by Nursing Services 08/10/2020 12:01 [facility] Blood CAPILLARY BLOOD / Unknown 08/10/2020 11:56 EST 08/10/2020 12:01 EST Mervin Kamara MD POINT OF CARE TEST O RDERABLES [facility] [address] [place] [address] * (ABNORMAL) POCT GLUCOSE, INTERFACED (08/10/2020 7:13 EST) Glucose, POC 195(H) 70 - 100 mg/dL 08/10/2020 7:15 EST [facility] electrical assembly technician ID [id number] 08/10/2020 7:15 EST [facility] HN LAB POC COMMENT (GLUCOSE) Test Performed by Nursing Services 08/10/2020 7:15 [facility] Blood CAPILLARY BLOOD / Unknown 08/10/2020 7:13 EST 08/10/2020 7:15 EST Mervin Kamara MD POINT OF CARE TEST O RDERABLES Performing Organization Address [facility] de Phone Number [facility] [address] [place] [address] * CREATININE (08/10/2020 6:39 EST) Creatinine 0.60 0.52 - 1.04 mg/dL 08/10/2020 7:52 [facility] eGFR 118 >60 mL/min/1.7 3m2 08/10/2020 7:52 [facility] Comment:eGFR calculated gil curtis CKD-EPI equation for non- Americans. Multiply eGFR by 1.16 for patients. Blood VENOUS BLOOD / Unknown Venipuncture / Unknown 08/10/2020 6:39 EST 08/10/2020 7:22 EST Mervin Kamara MD CHEMISTRY & BLOOD GA S ORDERABLES Performing Organization Address [facility] Co de Phone Number [facility] [address] [place] [address] * ELECTROLYTES (08/10/2020 6:39 EST) Sodium 138 136 - 145 mEq/L 08/10/2020 7:52 [facility] Potassium 3.7 3.5 - 5.0 mEq/L 08/10/2020 7:52 [facility] Chloride 96 96 - 110 mEq/L 08/10/2020 7:52 [facility] CO2 Total 31 22 - 32 mEq/L 08/10/2020 7:52 [facility] Blood VENOUS BLOOD / Unknown Venipuncture / Unknown 08/10/2020 6:39 EST 08/10/2020 7:22 EST Mervin Kamara MD CHEMISTRY & BLOOD GA S ORDERABLES Performing Organization Address City/[facility]/ZIP Co de Phone Number [facility] [address] [place] [address] * (ABNORMAL) COMPLETE BLOOD COUNT (08/10/2020 6:39 EST) WBC 10.21 4.00 - 12.40 K/cmm 08/10/2020 7:13 [facility] RBC 4.70 3.86 - 5.04 M/cmm 08/10/2020 7:13 [facility] Hemoglobin 14.6 11.6 - 15.2 gm/dL 08/10/2020 7:13 [facility] HCT 40.3 34.9 - 44.4 % 08/10/2020 7:13 [facility] MCV 86 81 - 98 fl 08/10/2020 7:13 [facility] MCH 31.1 26.7 - 33.3 pg 08/10/2020 7:13 [facility] MCHC 36.2(H) 32.1 - 35.9 gm/dL 08/10/2020 7:13 [facility] RDW-CV 12.0 <14.7 % 08/10/2020 7:13 [facility] RDW-SD 37.5 <50.4 fl 08/10/2020 7:13 [facility] PLT 343 141 - 377 K/cmm 08/10/2020 7:13 [facility] MPV 9.8 9.5 - 12.7 fl 08/10/2020 7:13 [facility] Blood VENOUS BLOOD / Unknown Venipuncture / Unknown 08/10/2020 6:39 EST 08/10/2020 7:00 EST Mervin Kamara MD HEMATOLOGY & PF4 ORD ERABLES [facility] [address] [place] [address] * (ABNORMAL) POCT GLUCOSE, INTERFACED (08/09/2020 20:46 EST) Glucose, POC 218(H) 70 - 100 mg/dL 08/09/2020 20:54 [facility] electrical assembly technician ID [id number] 08/09/2020 20:54 [facility] HN LAB POC COMMENT (GLUCOSE) Test Performed by Nursing Services 08/09/2020 20:54 [facility] Blood CAPILLARY BLOOD / Unknown 08/09/2020 20:46 EST 08/09/2020 20:54 EST Mervin Kamara MD POINT OF CARE TEST O MARILIA [facility] [address] [place] [address] * (ABNORMAL) POCT GLUCOSE, INTERFACED (08/09/2020 17:06 EST) Glucose, POC 209(H) 70 - 100 mg/dL 08/09/2020 17:11 [facility] electrical assembly technician ID [id number] 08/09/2020 17:11 [facility] HN LAB POC COMMENT (GLUCOSE) Test Performed by Nursing Services 08/09/2020 17:11 [facility] Blood CAPILLARY BLOOD / Unknown 08/09/2020 17:06 EST 08/09/2020 17:10 EST Mervin Kamara MD POINT OF CARE TEST O MARILIA [facility] [address] [place] [address] * (ABNORMAL) POCT GLUCOSE, INTERFACED (08/09/2020 13:22 EST) Glucose, POC 244(H) 70 - 100 mg/dL 08/09/2020 13:24 [facility] electrical assembly technician ID [id number] 08/09/2020 13:24 [facility] HN LAB POC COMMENT (GLUCOSE) Test Performed by Nursing Services 08/09/2020 13:24 [facility] Blood CAPILLARY BLOOD / Unknown 08/09/2020 13:22 EST 08/09/2020 13:24 EST Mervin Kamara MD POINT OF CARE TEST O RDERABLES [facility] [address] [place] [address] * (ABNORMAL) POCT GLUCOSE, INTERFACED (08/09/2020 9:23 EST) Glucose, POC 179(H) 70 - 100 mg/dL 08/09/2020 9:24 EST [facility] electrical assembly technician ID [id number] 08/09/2020 9:24 EST [facility] HN LAB POC COMMENT (GLUCOSE) Test Performed by Nursing Services 08/09/2020 9:24 EST [facility] Blood CAPILLARY BLOOD / Unknown 08/09/2020 9:23 EST 08/09/2020 9:24 EST Keshav Dumont MD POINT OF CARE TEST ORDERABLES Performing Organization Address [facility] Co de Phone Number [facility] [address] [place] [address] * (ABNORMAL) CREATININE (08/09/2020 7:04 EST) Creatinine 0.47(L) 0.52 - 1.04 mg/dL 08/09/2020 8:32 EST [facility] eGFR 128 >60 mL/min/1.7 3m2 08/09/2020 8:32 EST [facility] Comment:eGFR calculated gil curtis CKD-EPI equation for non- Americans. Multiply eGFR by 1.16 for patients. Blood VENOUS BLOOD / Unknown Venipuncture / Unknown 08/09/2020 7:04 EST 08/09/2020 7:58 EST Mervin Kamara MD CHEMISTRY & BLOOD GA S ORDERABLES Performing Organization Address City/[facility]/ZIP Co de Phone Number [facility] [address] [place] [address] * (ABNORMAL) ELECTROLYTES (08/09/2020 7:04 EST) Sodium 134(L) 136 - 145 mEq/L 08/09/2020 8:32 [facility] Potassium 3.4(L) 3.5 - 5.0 mEq/L 08/09/2020 8:32 [facility] Chloride 95(L) 96 - 110 mEq/L 08/09/2020 8:32 [facility] CO2 Total 30 22 - 32 mEq/L 08/09/2020 8:32 [facility] Blood VENOUS BLOOD / Unknown Venipuncture / Unknown 08/09/2020 7:04 EST 08/09/2020 7:58 EST Mervin Kamara MD CHEMISTRY & BLOOD GA S ORDERABLES Performing Organization Address City/State/[facility] Co de Phone Number [facility] [address] [place] [address] * (ABNORMAL) COMPLETE BLOOD COUNT (08/09/2020 7:04 EST) WBC 11.82 4.00 - 12.40 K/cmm 08/09/2020 7:42 [facility] RBC 4.31 3.86 - 5.04 M/cmm 08/09/2020 7:42 [facility] Hemoglobin 13.3 11.6 - 15.2 gm/dL 08/09/2020 7:42 [facility] HCT 36.3 34.9 - 44.4 % 08/09/2020 7:42 [facility] MCV 84 81 - 98 fl 08/09/2020 7:42 [facility] MCH 30.9 26.7 - 33.3 pg 08/09/2020 7:42 [facility] MCHC 36.6(H) 32.1 - 35.9 gm/dL 08/09/2020 7:42 [facility] RDW-CV 11.9 <14.7 % 08/09/2020 7:42 [facility] RDW-SD 36.4 <50.4 fl 08/09/2020 7:42 [facility] PLT 340 141 - 377 K/cmm 08/09/2020 7:42 [facility] MPV 9.7 9.5 - 12.7 fl 08/09/2020 7:42 [facility] Blood VENOUS BLOOD / Unknown Venipuncture / Unknown 08/09/2020 7:04 EST 08/09/2020 7:29 EST Mervin Kamara MD HEMATOLOGY & PF4 ORD ERABLES [facility] [address] [place] [address] * (ABNORMAL) POCT GLUCOSE, INTERFACED (08/09/2020 4:21 EST) Glucose, POC 219(H) 70 - 100 mg/dL 08/09/2020 7:22 [facility] electrical assembly technician ID [id number] 08/09/2020 7:22 [facility] HN LAB POC COMMENT (GLUCOSE) Test Performed by Nursing Services 08/09/2020 7:22 [facility] Blood CAPILLARY BLOOD / Unknown 08/09/2020 4:21 EST 08/09/2020 7:22 EST Keshav Dumont MD POINT OF CARE TEST ORDERABLES Performing Organization Address City/[facility]/ZIP Co de Phone Number [facility] [address] [place] [address] * (ABNORMAL) POCT GLUCOSE, INTERFACED (08/09/2020 1:47 EST) Glucose, POC 173(H) 70 - 100 mg/dL 08/09/2020 7:16 [facility] electrical assembly technician ID [id number] 08/09/2020 7:16 [facility] HN LAB POC COMMENT (GLUCOSE) Test Performed by Nursing Services 08/09/2020 7:16 [facility] Blood CAPILLARY BLOOD / Unknown 08/09/2020 1:47 EST 08/09/2020 7:16 EST Mervin Kamara MD POINT OF CARE TEST O RDERABLES Performing Organization Address City/[facility]/ZIP Co de Phone Number [facility] [address] [place] [address] * HN LAB CELL COUNT, CSF (08/08/2020 23:12 EST) RBC, CSF <1 /cmm 08/08/2020 23:43 EST [facility] Nucleated Cells, CSF <1 0 - 5 /cmm 08/08/2020 23:43 [facility] Total Volume CSF 4.8 ml 08/08/2020 23:43 [facility] Tube Cntd. 4 08/08/2020 23:43 [facility] Comment, CSF Clear and colorless 08/08/2020 23:43 [facility] Tube Vol. 1.2 ml 08/08/2020 23:43 [facility] Fluid CEREBROSPINAL FLUID SPECIMEN / Unknown 08/08/2020 23:12 EST 08/08/2020 23:22 EST Elise Charles MD HEMATOLOGY & PF4 O RDERABLES Performing Organization Address [facility] Co de Phone Number [facility] [address] [place] [address] * BACTERIAL CULTURE/SMEAR (08/08/2020 23:12 EST) Organism ID No Growth 08/10/2020 8:49 EST [facility] Smear No Neutrophils Seen 08/10/2020 8:49 EST [facility] Smear No bacteria seen 08/10/2020 8:49 EST [facility] Fluid CEREBROSPINAL FLUID SPECIMEN / Unknown 08/08/2020 23:12 EST 08/08/2020 23:22 EST Elise Charles MD MICROBIOLOGY - GEN ERAL ORDERABLES Performing Organization Address City/[facility]/ZIP Co de Phone Number [facility] [address] [place] [address] * (ABNORMAL) TOTAL PROTEIN, CSF (08/08/2020 23:12 EST) Total Protein, CSF 55(H) 12 - 45 mg/dL 08/09/2020 0:00 EST [facility] Fluid CEREBROSPINAL FLUID SPECIMEN / Unknown 08/08/2020 23:12 EST 08/08/2020 23:22 EST Elise Charles MD GEN LAB UNIT COLLE CT ORDERABLES Performing Organization Address [facility]/ZIP Co de Phone Number [facility] [address] [place] [address] * GLUCOSE CSF (08/08/2020 23:12 EST) Pathologist [facility] Glucose, CSF 126 See Note mg/dL 08/09/2020 0:00 EST [facility] Comment: NOTE: Reference range for Glucose in CSF: 60% - 80% of the Serum/Plasma Glucose Fluid CEREBROSPINAL FLUID SPECIMEN / Unknown 08/08/2020 23:12 EST 08/08/2020 23:22 EST Elise Charles MD GEN LAB UNIT COLLE CT ORDERABLES Performing Organization Address [facility] Co de Phone Number [facility] [address] [place] [address] * CELL COUNT TUBE 1, CSF - RBC ONLY, INDICATED FOR A BLOODY TAP (08/08/2020 23:12 EST) Pathologist [facility] RBC, CSF Tube#1 <1 /cmm 08/08/2020 23:43 EST [facility] Specimen Volume 1.2 ml 08/08/2020 23:43 EST [facility] Fluid CEREBROSPINAL FLUID SPECIMEN / Unknown 08/08/2020 23:12 EST 08/08/2020 23:22 EST Elise Charles MD GEN LAB UNIT COLLE CT ORDERABLES Performing Organization Address City/[facility]/ZIP Co de Phone Number [facility] [address] [place] [address] * TEST, URINE (08/08/2020 22:32 EST) Test, Urine Negative Negative 08/09/2020 1:36 [facility] Comment:False negative resul ts may occur in women who are beyond 5-8 weeks gestation. Diagnosis of should be based on a correlation of test results with typical clinical signs and symptoms. Urine URINE SPECIMEN COLLECTION, CLEAN CATCH / Unknown Urine Collect / Unknown 08/08/2020 22:32 EST 08/08/2020 22:34 EST Keshav Dumont MD URINALYSIS ORDERABL ES [facility] [address] [place] [address] * (ABNORMAL) URINE CHEMICAL (DIP) & SEDIMENT (MICRO) WITH REFLEX TO CULTURE (08/08/2020 22:32 EST) Color UA Yellow Colorless, Yellow 08/08/2020 23:01 [facility] Clarity UA Hazy(A) Clear 08/08/2020 23:01 [facility] Glucose UA Trace(A) Negative 08/08/2020 23:01 [facility] Bilirubin UA Negative Negative 08/08/2020 23:01 [facility] Ketones UA 3+(AA) Negative 08/08/2020 23:01 [facility] Specific [employer], Urine 1.024 1.001 - 1.035 08/08/2020 23:01 [facility] Blood UA Negative Negative 08/08/2020 23:01 [facility] Urobilinogen UA 4(A) Normal mg/dL 08/08/2020 23:01 [facility] LABORATORY SERVICES Nitrite UA Negative Negative 08/08/2020 23:01 [facility] LABORATORY SERVICES Leukocyte Esterase UA Negative Negative 08/08/2020 23:01 [facility] LABORATORY SERVICES Protein UA 1+(A) Negative 08/08/2020 23:01 [facility] LABORATORY SERVICES pH, UA 7.5 4.6 - 8.0 08/08/2020 23:01 [facility] LABORATORY SERVICES Urine RBC Count, Auto 0 - 2 0 - 2 Cells/HPF 08/08/2020 23:01 [facility] LABORATORY SERVICES Urine WBC Count, Auto 0 - 3 0 - 3 Cells/HPF 08/08/2020 23:01 [facility] LABORATORY SERVICES Urine Squamous Count, Auto Moderate(A) None Seen Cells/HPF 08/08/2020 23:01 [facility] LABORATORY SERVICES Urine Hyaline Cast Count, Auto <=10 <=10 Casts/LPF 08/08/2020 23:01 [facility] LABORATORY SERVICES Urine Bacteria Count, Auto None Seen None Seen Bacteria/HP F 08/08/2020 23:01 [facility] LABORATORY SERVICES Urine Crystals Amorphous Phosphates Present(A) None Seen 08/08/2020 23:01 [facility] LABORATORY SERVICES Urine URINE SPECIMEN COLLECTION, CLEAN CATCH / Unknown Urine Collect / Unknown 08/08/2020 22:32 EST 08/08/2020 22:34 EST Narrative [facility] LABORATORY SERVICES - 08/08/2020 23:01 EST NOTE: Reflex to Urine Culture test is not indicated based on Urine Sediment Analysis results. Urine Sediment Analysis results are unreliable on urines that are unrefrigerated for >2 hrs or refrigerated >8 hrs. Asuncion Telles MD URINALYSIS ORDERABLE S [facility] LABORATORY SERVICES [address] [place] [address] * CT HEAD WO CONTRAST (08/08/2020 21:15 [...] MD IMG CT ORDERABLES * COVID-19 TEST [facility] LAB PCR (08/08/2020 21:00 EST) Swab ENTIRE NASOPHARYNX / Unknown Swab / Unknown 08/08/2020 21:00 EST 08/08/2020 21:04 EST Asuncion Telles MD MICROBIOLOGY - GENER AL ORDERABLES [facility] LABORATORY SERVICES [address] [place] [address] * COVID-19 TESTING (08/08/2020 21:00 EST) COVID-19 rt-PCR Result Negative Negative 08/08/2020 23:52 EST [facility] LABORATORY SERVICES Comment: This test [...] history, and epidemiological information. Performed on the Intapp Fusion instrument Performing Lab [place] [facility] Lab 08/08/2020 23:52 EST [facility] LABORATORY SERVICES Swab ENTIRE NASOPHARYNX / Unknown Swab / Unknown 08/08/2020 21:00 EST 08/08/2020 21:04 EST Asuncion Telles MD MICROBIOLOGY - GENER AL ORDERABLES Performing Organization Address City/[facility]/ZIP Co de Phone Number [facility] LABORATORY SERVICES [address] [place] [address] * LACTIC ACID (08/08/2020 21:00 EST) Lactic Acid 1.2 <=2.0 mmol/L 08/08/2020 21:17 EST [facility] LABORATORY SERVICES Blood VENOUS BLOOD / Unknown Venipuncture / Unknown 08/08/2020 21:00 EST 08/08/2020 21:05 EST Asuncion Telles MD CHEMISTRY & BLOOD GA S ORDERABLES Performing Organization Address City/[facility] Co de Phone Number [facility] LABORATORY SERVICES [address] [place] [address] * BACTERIAL CULTURE, BLOOD (08/08/2020 21:00 EST) Organism ID No Growth at 5 days 08/13/2020 21:30 EST [facility]ORATORY SERVICES Blood VENOUS BLOOD / Unknown Blood Culture / Unknown 08/08/2020 21:00 EST 08/08/2020 21:17 EST Asuncion Telles MD MICROBIOLOGY - GENER AL ORDERABLES Performing Organization Address City/[facility] Co de Phone Number [facility] LABORATORY SERVICES [address] [place] [address] * BACTERIAL CULTURE, BLOOD (08/08/2020 20:59 EST) Organism ID No Growth at 5 days 08/13/2020 21:30 EST [facility] LABORATORY SERVICES Blood VENOUS BLOOD / Unknown Blood Culture / Unknown 08/08/2020 20:59 EST 08/08/2020 21:17 EST Asuncion Telles MD MICROBIOLOGY - GENER AL ORDERABLES Performing Organization Address City/[facility] de Phone Number [facility] LABORATORY SERVICES [address] [place] [address] * ED LUMBAR PUNCTURE BEDSIDE OR CLINIC PERFORMED (08/08/2020 19:21 EST) Narrative [facility] EKG - 08/08/2020 19:21 EST Elise Charles MD ? 08/09/2020 ??9:40 Lumbar Puncture Date/Time: 08/08/2020 22:31 Performed by: Asuncion Telles MD Authorized by: Elise Charles MD Consent: ??Consent obtained: ??Verbal ??Consent given by: ??Patient ??Risks discussed: ??Bleeding, headache, nerve damage, infection, pain and repeat procedure ??Alternatives discussed: ??No treatment [place] protocol: ??Procedure explained and questions answered to [...] PROCEDURE/MINOR GOLDMAN RGICAL ORDERABLES Performing Organization Address [facility]/ZIP Co de Phone Number [facility] EKG * C REACTIVE PROTEIN (08/08/2020 19:07 EST) Pathologist [facility] C-Reactive Protein <7.0 <10.0 mg/L 08/08/2020 21:11 EST [facility] LABORATORY SERVICES Blood VENOUS BLOOD / Unknown Venipuncture / Unknown 08/08/2020 19:07 EST 08/08/2020 19:12 EST Asuncion Telles MD CHEMISTRY & BLOOD GA S ORDERABLES Performing Organization Address [facility]/ZIP Co de Phone Number [facility] LABORATORY SERVICES [address] [place] [address] * SED. RATE:WESTERGREN (08/08/2020 19:07 EST) Sed Rate 12 0 - 20 mm/hr 08/08/2020 21:15 EST [facility] LABORATORY SERVICES Blood VENOUS BLOOD / Unknown Venipuncture / Unknown 08/08/2020 19:07 EST 08/08/2020 19:12 EST Asuncino Telles MD HEMATOLOGY & PF4 ORD ERABLES Performing Organization Address [facility] Co de Phone Number [facility]ORATORY SERVICES [address] [place] [address] * (ABNORMAL) BETA HYDROXYBUTYRATE (08/08/2020 19:07 EST) Beta Hydroxybutyrate 2.7(H) <0.4 mmol/L 08/08/2020 20:43 EST [facility]ORATORY SERVICES Blood VENOUS BLOOD / Unknown Venipuncture / Unknown 08/08/2020 19:07 EST 08/08/2020 19:12 EST Elise Charles MD CHEMISTRY & BLOOD GAS ORDERABLES Performing Organization Address [facility] Co de Phone Number [facility]ORATORY [facility] [address] [place] [address] * LIPASE (08/08/2020 19:07 EST) Lipase 194 <251 U/L 08/08/2020 19:35 EST [facility] Blood VENOUS BLOOD / Unknown Venipuncture / Unknown 08/08/2020 19:07 EST 08/08/2020 19:12 EST Asuncion Telles MD CHEMISTRY & BLOOD GA S ORDERABLES Performing Organization Address [facility] Co de Phone Number [facility]OR[facility]ORY [facility] [address] [place] [address] * (ABNORMAL) COMPREHENSIVE METABOLIC PANEL (CMP) (08/08/2020 19:07 EST) Sodium 136 136 - 145 mEq/L 08/08/2020 19:38 EST [facility] Potassium 3.7 3.5 - 5.0 mEq/L 08/08/2020 19:38 EST [facility] Comment: NOTE: Interpret with caution. Prolonged sample storage may alter the result. Chloride 91(L) 96 - 110 mEq/L 08/08/2020 19:38 EST [facility] CO2 Total 28 22 - 32 mEq/L 08/08/2020 19:38 [facility]ORATORY [facility] Comment: NOTE: Interpret with caution. Prolonged sample storage may alter the result. Glucose 224(H) 70 - 100 mg/dL 08/08/2020 19:38 [facility]ORATORY [facility] BUN 12 10 - 26 mg/dL 08/08/2020 19:38 [facility] Creatinine 0.59 0.52 - 1.04 mg/dL 08/08/2020 19:38 [facility] LABORATORY SERVICES eGFR 119 >60 mL/min/1.7 3m2 08/08/2020 19:38 [facility]ORATORY [facility] Comment:eGFR calculated gli curtis CKD-EPI equation for non- Americans. Multiply eGFR by 1.16 for patients. Total Protein 7.8 6.3 - 8.2 g/dL 08/08/2020 19:38 [facility]ORATORY [facility] Albumin 4.9 3.4 - 4.9 g/dL 08/08/2020 19:38 [facility] Alkaline Phosphatase 97 38 - 126 U/L 08/08/2020 19:38 [facility] AST 29 15 - 46 U/L 08/08/2020 19:38 [facility] ALT 23 <35 U/L 08/08/2020 19:38 [facility] Bilirubin, Total 1.0 <1.4 mg/dL 08/09/19 19:38 [facility]ORATORY [facility] Calcium 10.5 8.5 - 10.5 mg/dL 08/08/2020 19:38 [facility]ORATORY SERVICES Calculated Calcium 9.8 8.5 - 10.5 mg/dL 08/08/2020 19:38 [facility]ORATORY SERVICES Blood VENOUS BLOOD / Unknown Venipuncture / Unknown 08/08/2020 19:07 EST 08/08/2020 19:12 EST Asuncion Telles MD CHEMISTRY & BLOOD GA S ORDERABLES [facility]OR[facility] SERVICES [address] [place] [address] * (ABNORMAL) COMPLETE BLOOD COUNT AND DIFFERENTIAL (08/08/2020 19:07 EST) WBC 16.16(H) 4.00 - 12.40 K/cmm 08/08/2020 19:33 [facility] RBC 4.94 3.86 - 5.04 M/cmm 08/08/2020 19:33 [facility] Hemoglobin 15.3(H) 11.6 - 15.2 gm/dL 08/08/2020 19:33 [facility] HCT 41.4 34.9 - 44.4 % 08/08/2020 19:33 [facility] MCV 84 81 - 98 fl 08/08/2020 19:33 [facility] MCH 31.0 26.7 - 33.3 pg 08/08/2020 19:33 [facility] MCHC 37.0(H) 32.1 - 35.9 gm/dL 08/08/2020 19:33 [facility] RDW-CV 11.9 <14.7 % 08/08/2020 19:33 [facility] RDW-SD 36.2 <50.4 fl 08/08/2020 19:33 [facility]ORATORY [facility] PLT 416(H) 141 - 377 K/cmm 08/08/2020 19:33 [facility] MPV 9.7 9.5 - 12.7 fl 08/08/2020 19:33 [facility] % Neutrophils 65.9 % 08/08/2020 19:33 [facility] % Lymphocytes 25.0 % 08/08/2020 19:33 [facility] % Monocytes 8.1 % 08/08/2020 19:33 [facility] % Eosinophils 0.4 % 08/08/2020 19:33 [facility] % Basophils 0.4 % 08/08/2020 19:33 [facility] % Immature Grans 0.2 % 08/09/19 19:33 [facility] Absolute Neutrophils 10.63(H) 2.20 - 8.85 K/cmm 08/08/2020 19:33 [facility] Absolute Lymphocytes 4.04(H) 1.09 - 3.30 K/cmm 08/08/2020 19:33 [facility] Absolute Monocytes 1.31(H) 0.10 - 0.80 K/cmm 08/08/2020 19:33 [facility] Absolute Eosinophils 0.07 0.03 - 0.61 K/cmm 08/08/2020 19:33 [facility] ABS Basophils 0.07 0.01 - 0.11 K/cmm 08/08/2020 19:33 [facility] Absolute Immature Grans 0.04 0.00 - 0.06 K/cmm 08/08/2020 19:33 [facility] Type of Differential: Auto 08/08/2020 19:33 [facility] Blood VENOUS BLOOD / Unknown Venipuncture / Unknown 08/08/2020 19:07 EST 08/08/2020 19:12 EST Asuncion Telles MD PACKAGES & DNA PROBE ORDERABLES Performing Organization Address City/[facility]/ZIP Co de Phone Number [facility]ORATORY [facility] [address] [place] [address] * HOLD SST (08/08/2020 19:07 EST) Hold Hold 08/08/2020 20:15 EST [facility] Blood VENOUS BLOOD / Unknown Venipuncture / Unknown 08/08/2020 19:07 EST 08/08/2020 19:12 EST Elise Charles MD LAB INFO SERVICE A ND SUPPORT & PHONE RESULT Performing Organization Address City/[facility]/ZIP Co de Phone Number [facility]ORATORY [facility] [address] [place] [address] * HOLD LAVENDER TOP (08/08/2020 19:07 EST) Hold Hold 08/08/2020 20:15 EST [facility] SERVICES Blood VENOUS BLOOD / Unknown Venipuncture / Unknown 08/08/2020 19:07 EST 08/08/2020 19:12 EST Elise Charles MD LAB INFO SERVICE A ND SUPPORT & PHONE RESULT Performing Organization Address City/[facility]/ZIP Co de Phone Number [facility]OR[facility] [address] [place] [address] * HOLD GREEN TOP (08/08/2020 19:07 EST) Hold Hold 08/08/2020 20:15 EST [facility] Blood VENOUS BLOOD / Unknown Venipuncture / Unknown 08/08/2020 19:07 EST 08/08/2020 19:12 EST Elise Charles MD LAB INFO SERVICE A ND SUPPORT & PHONE RESULT Performing Organization Address [facility]/ZIP Co de Phone Number [facility]ORATORY [facility] [address] [place] [address] * HOLD BLUE TOP (08/08/2020 19:07 EST) Hold Hold 08/08/2020 20:15 EST [facility] Blood VENOUS BLOOD / Unknown Venipuncture / Unknown 08/08/2020 19:07 EST 08/08/2020 19:12 EST Elise Charles MD LAB INFO SERVICE A ND SUPPORT & PHONE RESULT Performing Organization Address [facility]/ZIP Co de Phone Number [facility] [address] [place] [address] * EKG 12-LEAD (08/08/2020 19:04 EST) 08/08/2020 19:0 4 EST Narrative [facility] EKG - 08/25/2020 13:16 EDT ?[facility] Emergency ? Test Date: ?2020-08-08 Pat Name: ? CRISTY LUO ?Department: ?? ED ? Room: ? AC14 Gender: ? Female ? School Age Teacher: ?? [id number] : ?1985 ? Requested By: SUSANNE Huizar Order Number: [id number] ? Reading MD: ?? CINDY GARCIA MD ? Measurements Intervals ?Tolar ? Rate: ? 86 ? P: ?65 IA: ? 139 ?QRS: ?48 QRSD: ? 93 [...] Note Cindy Garcia MD - 08/25/2020 [facility] Emergency Test Date: 2020-08-08 Pat Name: CRISTY LUO Department: ED Room: [facility] Gender: Female School Age Teacher: [id number] : 1985 Requested By: SUSANNE Huizar Order Number: [id number] Reading MD: CINDY GARCIA MD Measurements Intervals Tolar Rate: 86 P: 65 IA: 139 QRS: 48 QRSD: 93 T: 20 [...] Alessandro Delgadillo MD CARDIAC ECG ORDERABL ES [facility] EKG * (ABNORMAL) POCT GLUCOSE, INTERFACED (08/08/2020 18:54 EST) Glucose, POC 213(H) 70 - 100 mg/dL 08/08/2020 18:55 EST [facility] LABORATORY electrical assembly technician ID [id number] 08/08/2020 18:55 EST [facility]OR[facility]ORY SERVICES HN LAB POC COMMENT (GLUCOSE) Test Performed by Nursing Services 08/08/2020 18:55 EST [facility] Blood CAPILLARY BLOOD / Unknown 08/08/2020 18:54 EST 08/08/2020 18:55 EST Provider Unknown MD POINT OF CARE TEST O RDERABLES [facility] [address] [place] [address] documented in this encounter Visit Diagnoses Diagnosis Generalized abdominal pain- Primary Abdominal pain, generalized Generalized abdominal pain Abdominal pain, generalized Emesis, persistent Persistent vomiting Type 2 diabetes mellitus with hyperosmolarity without coma, with long-term current use of insulin ([facility]) Dehydration Gastroparesis Abdominal pain Abdominal pain, unspecified site Emesis, persistent Persistent vomiting Dehydration Gastroparesis Generalized abdominal pain Abdominal pain, generalized Emesis, persistent Persistent vomiting Type 2 diabetes mellitus with hyperosmolarity without coma, with long-term current use of insulin ([facility]) documented in this encounter Administered Medications [...] Provider: Jayne Perera RN)2030 (Given - Provider: Erny Goss RN) HYDROmorphone (PF) (DILAUDID) 0.5 mg/0.5 [...] - Provider: Jayne Perera RN - Comment: [phone] (Not Given - Provider: Vinicius Blood RN [...] MARCELO)0900 (Canceled Entry - Provider: Rivera Kerr [facility])2100 (Not Given - Provider: Eryn Goss RN [...]
--- OUTSIDE RECORDS SUMMARY | 2024-02-06 13:36 | XMS_ITS | Encounter Summary ---
Author Organization [facility] Address [address] [place] [address] Care Team Providers Care Trade Union Official Name Role Phone Unavailable Primary Care Provider Unavailabl e Encounter Details Date Type Department Care Team (Late st Contact Info) Description 06/26/2020 Documentation Visit [facility] Obstetrics & Midwifery - [address] [phone] Nohemy Sales MD [address] [facility], [address] [place] [address] Social History Tobacco Use Types [...] 1 pad/hr and 10/10 pain. Will have FINE CRAFT ARTIST RN call today Nohemy Sales MD documented in this encounter Plan of Treatment Upcoming Encounters Date Type Department Care Team (Late st Contact Info) Description 02/21/2024 9:45 EDT Office Visit [facility] [place] [address] Carrington Calderon MD 1 [facility] 1 [place] [address] 02/27/2024 8:30 EDT Telemedicine [facility] Sleep Program - [address] [place] [address] ColbertDwight garner [address] [place] [phone] 02/29/2024 10:30 EDT [facility]ointment [facility] Radiology Nuclear Medicine and PET - [address] [address] 02/29/2024 14:30 EDT Appointment [facility] Radiology Nuclear Medicine and PET - [address] [phone] 03/01/2024 8:00 EDT Appointment [facility] Radiology Nuclear Medicine and PET - [address] [address] 03/01/2024 9:30 EDT [facility] - [address] [address] documented as of this encounter Visit Diagnoses Not on filedocumented in this encounter
--- OUTSIDE RECORDS SUMMARY | 2024-02-06 13:36 | XMS_ITS | Encounter Summary ---
Author Organization [facility] Address [address] [place] [address] Care Team Providers Care Biomedical Repair Technician Name Role Phone Unavailable Primary Care Provider Unavailabl e Reason for Visit * Reason Comments Follow-up Encounter Details Date Type Department Care Team (Latest Contact Info) Description 08/01/2020 15:00 EST Office Visit [facility] Adult Primary Care - [address] [address] Tonja Alejandro PA-C [address] [place] [address] [place] [phone] Musculoskeletal pain (Primary Dx); Type 2 diabetes mellitus with hyperosmolarity without coma, with long-term current use of insulin ([facility]); Neuropathy; Depression, unspecified depression type; Chronic bilateral [...] miscarriage. She has been following up with FELLED SEAM OPERATOR CHAINSTITCH and is ultimately scheduled for hysterectomy. This [...] healthy eating -Continue to follow-up with a bar machine operator History of multiple miscarriages -Continue follow-up with CHAIN SALES CONSULTANT -Plan for hysterectomy next month Left toe [...] is interested in seeing a social work therapist. Will order this. Chronic back pain -Start with x-rays of thoracic and lumbar spine. -Consider MRI of thoracic spine/lumbar spine due to radicular pain Will call patient on Tuesday for further insulin instructions. Tonja Alejandro PA-C [facility] Adult Primary Care-[place] 08/01/2020 16:34 I spent a total of [...] [facility] Adult Primary Care - [address] [phone] Carrington Calderon MD [address] [phone] 02/27/2024 8:30 EDT Telemedicine [facility] Sleep Program - [address] [phone] Dwight Colbert [address] [place] [phone] 02/29/2024 10:30 EDT Appointment [facility] Radiology Nuclear Medicine and PET - [address] [phone] 02/29/2024 14:30 EDT Appointment [facility] Radiology Nuclear Medicine and PET - [address] [phone] 03/01/2024 8:00 EDT Appointment [facility] Radiology Nuclear Medicine and PET - [address] [phone] 03/01/2024 9:30 EDT Appointment [facility] Radiology Nuclear Medicine and PET - [address] [address] documented as of this encounter Visit Diagnoses Diagnosis Musculoskeletal pain- Primary Mylagia and myositis, unspecified Type 2 diabetes mellitus with hyperosmolarity without coma, with long-term current use of insulin ([facility]) Neuropathy Mononeuritis of unspecified site Depression, [...]
--- OUTSIDE RECORDS SUMMARY | 2024-02-06 13:36 | XMS_ITS | Encounter Summary ---
Author Organization [facility] Address [address] [place] [address] Care Team Providers Care Marketing Finance Manager Name Role Phone Unavailable Primary Care Provider Unavailabl e Reason for Visit * Reason Onset Date Comments Follow-up 06/27/2020 Encounter Details Date Type Department Care Team (Late st Contact Info) Description 06/27/2020 Telephone [facility] Women's Services [facility] [address] [place] [address] Susana Tomlinson, RN Follow-up Social History Tobacco [...] [facility] Adult Primary Care - [address] [phone] Carrington Calderon MD [address] [facility] 1 [place] [address] 02/27/2024 8:30 EDT Telemedicine [facility] Sleep Program - [address] [phone] Dwight Colbert [address] [place] [phone] 02/29/2024 10:30 EDT Appointment [facility] Radiology Nuclear Medicine and PET - [address] [phone] 02/29/2024 14:30 EDT Appointment [facility] Radiology Nuclear Medicine and PET - [address] [phone] 03/01/2024 8:00 EDT Appointment [facility] Radiology Nuclear Medicine and PET - [address] [phone] 03/01/2024 9:30 EDT Appointment [facility] Radiology Nuclear Medicine and PET - [address] [phone] documented as of this encounter Visit Diagnoses Not on filedocumented in this encounter
--- OUTSIDE RECORDS SUMMARY | 2024-02-06 13:36 | XMS_ITS | Encounter Summary ---
Author Organization [facility] Address [address] [place] [address] Care Team Providers Care Academic Intern Name Role Phone Unavailable Primary Care Provider Unavailabl e Reason for Visit * Reason Comments Pre-op Exam Encounter Details Date Type Department Care Team (Late st Contact Info) Description 07/28/2020 10:30 EST Office Visit [facility] Women's Services - [facility] [address] [place] [address] Fernanda Egan, DO [address] [place] [phone] Encounter for sterilization (Primary Dx) Social History [...] Egan D.O. 07/28/2020 11:05 Obstetrics/Gynecology PGY-1 Pager #[phone] * Whit Rae MD - 07/28/2020 1030 [facility] - [address] [phone] Carrington Calderon MD [address] [phone] 02/27/2024 8:30 EDT Telemedicine [facility] Sleep Program - [address] [phone] Dwight Colbert [address] [place] [address] 02/29/2024 10:30 EDT Appointment [facility] Radiology Nuclear Medicine and PET - [address] [id number] 02/29/2024 14:30 EDT Appointment [facility] Radiology Nuclear Medicine and PET [address] [phone] 03/01/2024 8:00 EDT Appointment [facility] Radiology Nuclear Medicine and PET [address] [phone] 03/01/2024 9:30 EDT Appointment [facility] Radiology Nuclear Medicine and PET [address] [phone] documented as of this encounter Procedures Procedure Name Priority Date/Time Associated Diagnosis Comments HEMOGLOBIN A1C Routine 07/28/2020 11:25 EST Encounter for sterilization documented in this encounter Results * (ABNORMAL) SCREENING GLUCOSE (07/28/2020 11:25 EST) Glucose, Screening 260(H) 70 - 100 mg/dL 07/28/2020 12:39 EST [facility] Comment:Elevated screening g lucose value greater than 180 mg/dl, please order follow up Hemoglobin A1C. Blood VENOUS BLOOD / Unknown Venipuncture / Unknown 07/28/2020 11:25 EST 07/28/2020 12:04 EST Whit Rae MD CHEMISTRY & BLOOD GA S ORDERABLES [facility] [address] [place] [address] * (ABNORMAL) HEMOGLOBIN A1C (07/28/2020 11:25 EST) Hemoglobin A1c 9.7(H) <5.7 % 07/28/2020 14:20 EST [facility] Comment: Glycemic Status References: [...] Est Avg Glucose 232 mg/dL 14:20 EST [facility] Comment:The eAG represents t he A1c result expressed as average glucose in mg/dL. Blood VENOUS BLOOD / Unknown Venipuncture / Unknown 07/28/2020 11:25 EST 07/28/2020 11:50 EST Whit Rae MD CHEMISTRY & BLOOD GA S ORDERABLES [facility] [address] [place] [address] documented in this encounter Visit Diagnoses Diagnosis Encounter for sterilization- Primary Sterilization documented in this encounter
--- OUTSIDE RECORDS SUMMARY | 2024-02-06 13:36 | XMS_ITS | Encounter Summary ---
Author Organization [facility] Address [address] [place] [address] Care Team Providers Care Nylon Winder Name Role Phone Unavailable Primary Care Provider Unavailabl e Reason for Visit * Reason Onset Date Comments Miscarriage 06/26/2020 Nausea 06/26/2020 Abdominal Pain 06/26/2020 Encounter Details Date Type Department Care Team (Late st Contact Info) Description 06/26/2020 Telephone [facility] Adult Primary Care [address] [address] Tonja Alejandro PA-C [address] [place] [address] [place] [phone] Miscarriage; Nausea; Abdominal Pain Social History [...] in bleeding. I encouraged her to call [facility] office back for further recommendations. She really would like to try to stay out of the ER department as they have not been helpful the last time they went there. I did explain to her there can be serious risk with miscarriages with increase pain and bleeding. She understands this and will call [facility]. * Telephone Encounter - Jesi Lua RN - 06/26/2020 1537 EST Spoke with . He states spinner open end got to wifes phone and told her to go to ER. He states he is not bringing her back to the ER. He states she is not comfortable bringing her there and having them sitthere for 6hrs like they did the other day and them not do anything. He is not happy with [facility] office and states that is why he called us. Will forward message to Tonja DAWSON * Telephone Encounter - Tonja Alejandro PA-C - 06/26/2020 1525 EST Looks like someone from [facility] tried calling her. Patient needs to return phone call to them. * Telephone Encounter - Eryn Navarrete RN - 06/26/2020 1517 EST Reviewed response with patient's . He is still concerned about her pain management Will review with provider. * Telephone Encounter - Tonja Alejandro PA-C - 06/26/2020 1435 EST Please let patient know that I called over to her [facility] office/attending diamond driller helper. The doctor had put in a message [...] 1346 EST Has she talked with her pattern technician? im concerned regarding her symptoms especially if she has a retained clot. I also worry about possible hemorrhage ( if she is severely bleeding, any increased bleedingsince yesterday? ). Has the pain changed since yesterday? Any fevers? I really think she needs to let spinner open end know whats going on today . I [...] provider yesterday and things were fine) [facility]ses [facility] [place]. * Telephone Encounter - Dayana Cosme - [...] 9:45 EDT Office Visit [facility] Adult Primary Care - [address] [phone] Carrington Calderon MD 1 [facility] 1 [place] [phone] 02/27/2024 8:30 EDT Telemedicine [facility] Sleep Program - [address] [phone] Dwihgt Colbert [address] [place] [address] [phone] 02/29/2024 10:30 EDT Appointment [facility] Radiology Nuclear Medicine and PET - [address] [phone] 02/29/2024 14:30 EDT Appointment [facility] Radiology Nuclear Medicine and PET - [address] [address] 03/01/2024 8:00 EDT Appointment [facility] Radiology Nuclear Medicine and PET [address] [address] 03/01/2024 9:30 EDT Appointment [facility] Radiology Nuclear Medicine and PET [address] [address] documented as of this encounter Visit Diagnoses Not on filedocumented in this encounter Additional Health Concerns Infection Onset Date Last Indicated Resolved Time R/O COVID-19 08/04/2020 08/04/2020 08/04/2020 11:4 0 EST documented as of this encounter
--- OUTSIDE RECORDS SUMMARY | 2024-02-06 13:36 | XMS_ITS | Encounter Summary ---
Author Organization [facility] Address [address] [place] [address] Care Team Providers Care Shower Attendant Name Role Phone Unavailable Primary Care [...] [facility] Adult Primary Care - [address] [phone] Carrington Calderon MD [address] [phone] 02/27/2024 8:30 EDT Telemedicine [facility] Sleep Program - [address] [phone] Dwight Colbert [address] [place] [address] [phone] 02/29/2024 10:30 EDT Appointment [facility] Radiology Nuclear Medicine and PET - [address] [phone] 02/29/2024 14:30 EDT Appointment [facility] Radiology Nuclear Medicine and PET - [address] [phone] 03/01/2024 8:00 EDT Appointment [facility] Radiology Nuclear Medicine and PET - [address] [phone] 03/01/2024 9:30 EDT Appointment [facility] Radiology Nuclear Medicine and PET - [address] [phone] documented as of this encounter Visit Diagnoses Not on filedocumented in this encounter Additional Health Concerns Infection Onset Date Last Indicated Resolved Time R/O COVID-19 08/04/2020 08/04/2020 08/04/2020 11:4 0 EST documented as of this encounter
--- OUTSIDE RECORDS SUMMARY | 2024-02-06 13:36 | XMS_ITS | Encounter Summary ---
Author Organization [facility] Address [address] [place] [address] Care Team Providers Care House Decorator Name Role Phone Unavailable Primary Care Provider Unavailabl e Reason for Visit * Reason Comments Telemedicine Video Visit Encounter Details Date Type Department Care Team (Late st Contact Info) Description 07/02/2020 11:30 EST Telemedicine [facility] Infectious Disease - [address] [phone] Mushtaq Light, DO 111 [facility], Level [address] [place] [address] Osteomyelitis of left foot, unspecified [...] Bone biopsy was polymicrobial (MSSA,??GBS,??S.??anginosus, prevotella) and??MRI [id number] distal phalanx osteomyelitis with possible early proximal [...] 12/05/19- Spine- told years ago ??? Diabetes ([facility]) ? A1c 10.3 on 11/28/2019 ??? History [...] FOREIGN BODIES:??None ?? SOCIAL HISTORY:? Lives with paleontology teacher Active smoker??but she has gone from [...] Gets together: Not on file ? Attends jain service: Not on file ? Active member [...] few strep anginosus, moderate prevotella 05/03 covid-19 TELEVISION ANNOUNCER swab: negative 05/04 blood cultures:06/09 bottles growing [...] [facility] Adult Primary Care - [address] 189401 Carrington Calderon MD 1 [facility] 1 [place] [phone] 02/27/2024 8:30 EDT Telemedicine [facility] Sleep Program - [address] [phone] Dwight Colbert [address] [place] [address] [phone] 02/29/2024 10:30 EDT Appointment [facility] Radiology Nuclear Medicine and PET - [address] [phone] 02/29/2024 14:30 EDT Appointment [facility] Radiology Nuclear Medicine and PET - [address] [address] 03/01/2024 8:00 EDT Appointment [facility] Radiology Nuclear Medicine and PET - [address] [address] 03/01/2024 9:30 EDT Appointment [facility] Radiology Nuclear Medicine and PET - [address] [address] documented as of this encounter Visit Diagnoses Diagnosis Osteomyelitis of left foot, unspecified type (HCC-CMS)- Primary documented in this encounter
--- OUTSIDE RECORDS SUMMARY | 2024-02-06 13:36 | XMS_ITS | Encounter Summary ---
Author Organization [facility] Address [address] [place] [address] Care Team Providers Care Watch Crystal Molder Name Role Phone Unavailable Primary Care Provider Unavailabl e Encounter Details Date Type Department Care Team (Late st Contact Info) Description 07/28/2020 11:15 EST Phlebotomy Only [facility] 2 Phlebotomy [address] [place] [address] Project Assistant, Acc Phlebotomy Encounter for sterilization Social History [facility] - [address] 237641 Carrington Calderon MD 1 [facility] 1 [place] [phone] 02/27/2024 8:30 EDT Telemedicine [facility] Sleep Program - [address] [phone] Dwight Colbert [address] [place] [address] [phone] 02/29/2024 10:30 EDT Appointment [facility] Radiology Nuclear Medicine and PET - [address] [phone] 02/29/2024 14:30 EDT Appointment [facility] Radiology Nuclear Medicine and PET - [facility] [address] [place] [address] 03/01/2024 8:00 EDT Appointment [facility] Radiology Nuclear Medicine and PET [facility] [address] [place] [address] 03/01/2024 9:30 EDT Appointment [facility] Radiology Nuclear Medicine and PET [address] [address] documented as of this encounter Procedures Procedure Name Priority Date/Time Associated Diagnosis Comments SCREENING GLUCOSE Routine 07/28/2020 11: 25 EST Encounter for sterilization documented in this encounter Results * (ABNORMAL) SCREENING GLUCOSE (07/28/2020 11:25 EST) Glucose, Screening 260(H) 70 - 100 mg/dL 07/28/2020 12:39 EST [facility] Comment:Elevated screening g lucose value greater than 180 mg/dl, please order follow up Hemoglobin A1C. Blood VENOUS BLOOD / Unknown Venipuncture / Unknown 07/28/2020 11:25 EST 07/28/2020 12:04 EST Whit Rae MD CHEMISTRY & BLOOD GA S ORDERABLES [facility] [address] [place] [address] documented in this encounter Visit Diagnoses Diagnosis Encounter for sterilization Sterilization documented in this encounter
--- OUTSIDE RECORDS SUMMARY | 2024-02-06 13:36 | XMS_ITS | Encounter Summary ---
Author Organization [facility] Address [address] [place] [address] Care Team Providers Care Band And Cuff Cutter Name Role Phone Unavailable Primary Care Provider Unavailabl e Encounter Details Date Type Department Care Team (Late st Contact Info) Description 06/26/2020 Orders Only [facility] Women's Services - [facility] [address] [place], [place] [phone] Marisa Tony MD [address] [place] [phone] Social History Tobacco Use Types Packs/Day Years [...] for tramadol 50mg. Instructed patient to call production foreman number if sx worsen. Marisa Tony MD Factory Worker PGY-1 Pager [phone] documented in this encounter Plan of Treatment Upcoming Encounters Date Type Department Care Team (Late st Contact Info) Description 02/21/2024 9:45 EDT Office Visit [facility] Adult Primary Care - [address] [phone] Carrington Calderon MD [address] [phone] 02/27/2024 8:30 EDT Telemedicine [facility] Sleep Program - [address] [phone] Dwight Colbert [address] [place] [address] [phone] 02/29/2024 10:30 EDT Appointment [facility] Radiology Nuclear Medicine and PET [address] [phone] 02/29/2024 14:30 EDT Appointment [facility] Radiology Nuclear Medicine and PET [address] [phone] 03/01/2024 8:00 EDT Appointment [facility] Radiology Nuclear Medicine and PET [address] [phone] 03/01/2024 9:30 EDT Appointment [facility] Radiology Nuclear Medicine and PET [address] [phone] documented as of this encounter Visit Diagnoses Not on filedocumented in this encounter
--- OUTSIDE RECORDS SUMMARY | 2024-02-06 13:36 | XMS_ITS | Encounter Summary ---
Author Organization [facility] Address [address] [place] [address] Care Team Providers Care Med Spa Manager Name Role Phone Unavailable Primary Care Provider Unavailabl e Encounter Details Date Type Department Care Team (Late st Contact Info) Description 07/02/2020 Orders Only [facility] Endocrinology - [facility] [address] [place] [address] Sara Zafar, GUSTAVO 62 [facility] [address] [place] [phone] Type 2 diabetes mellitus with hyperglycemia, with long-term current use of insulin ([facility]) (Primary Dx) Social History Tobacco Use [facility] - [address] 104971 Carrington Calderon MD 1 [facility] 1 [place] [address] 02/27/2024 8:30 EDT Telemedicine [facility] Sleep Program - [address] [address] Dwight Colbert [address] [place] [phone] (Hhgo) [phone] (Fax) 02/29/2024 10:30 EDT [facility] Radiology Nuclear Medicine and PET - [address] [phone] 02/29/2024 14:30 EDT [facility] Radiology Nuclear Medicine and PET - [address] [phone] 03/01/2024 8:00 EDT Appointment [facility] Radiology Nuclear Medicine and PET - [address] [phone] 03/01/2024 9:30 EDT [facility] Rad[facility] Nuclear Medicine and PET [address] [phone] documented as of this encounter Visit Diagnoses Diagnosis Type 2 diabetes mellitus with hyperglycemia, with long-term current use of insulin ([facility])- Primary documented in this encounter
--- OUTSIDE RECORDS SUMMARY | 2024-02-06 13:36 | XMS_ITS | Encounter Summary ---
Author Organization [facility] Address [address] [place] [address] Care Team Providers Care Door Repairer Bus Name Role Phone Unavailable Primary Care Provider Unavailabl e Reason for Visit * Reason Onset Date Comments No Show 07/16/2020 Yohannes 07/15/20 Encounter Details Date Type Department Care Team (Late st Contact Info) Description 07/16/2020 Telephone [facility] Endocrinology - [address] CDE 62 [facility] [address] [place] [address] No Show (Yohannes 07/15/20) Social [...] Visit [facility] Adult Primary Care [address] [address] Carrington Calderon MD 1 [facility] 1 [place] [address] 02/27/2024 8:30 EDT Telemedicine [facility] Sleep Program - [address] [address] Dwight Colbert [address] [place] [address] [phone] 02/29/2024 10:30 EDT [facility] Radiology Nuclear Medicine and PET - [address] 662241 02/29/2024 14:30 EDT [facility] Radiology Nuclear Medicine and PET - [address] [id number] 03/01/2024 8:00 EDT [facility] Radiology Nuclear Medicine and PET - [address] [phone] 03/01/2024 9:30 EDT [facility] Radiology Nuclear Medicine and PET - [address] [phone] documented as of this encounter Visit Diagnoses Not on filedocumented in this encounter
--- OUTSIDE RECORDS SUMMARY | 2024-02-06 13:37 | XMS_ITS | Encounter Summary ---
Author Organization [facility] Address [address] [place] [address] Care Team Providers Care Edge Worker Name Role Phone Unavailable Primary Care [...] [facility] Adult Primary Care - [address] [phone] Carrington Calderon MD [address] [phone] 02/27/2024 8:30 EDT Telemedicine [facility] Sleep Program - [address] [phone] Dwight Colbert [address] [place] [address] [phone] 02/29/2024 10:30 EDT Appointment [facility] Radiology Nuclear Medicine and PET - [address] [phone] 02/29/2024 14:30 EDT Appointment [facility] Radiology Nuclear Medicine and PET - [address] [phone] 03/01/2024 8:00 EDT Appointment [facility] Radiology Nuclear Medicine and PET - [facility] [address] [place], [place] [phone] 03/01/2024 9:30 EDT Appointment [facility] Radiology Nuclear Medicine and PET - [address] [phone] documented as of this encounter Visit Diagnoses Not on filedocumented in this encounter
--- OUTSIDE RECORDS SUMMARY | 2024-02-06 13:37 | XMS_ITS | Encounter Summary ---
Author Organization [facility] Address [address] [place] [address] Care Team Providers Care Public Improvement Inspector Name Role Phone Unavailable Primary Care Provider Unavailabl e Reason for Visit * Auth/Cert Specialty Diagnoses / Procedures Referred By Contac t Referred To Contact Diagnoses Encounter for sterilization Procedures [place] LAP,RMV ADNEXAL STRUCTURE Laparoscopic Bilateral Salpingectomy Referral ID Status Reason Start Date Expiration Date Visits Re quested Visits Authorized [id number] 1 1 Encounter Details Date Type Department Care Team (Latest Contact Info) Description 06/16/2020 13:35 EST - 06/16/2020 17:05 [facility] Hospital Encounter [facility] Main [place] OR [address] [place] [address] Elza Navarro DPDickosn [address] [place] [phone] Osteomyelitis of left foot, unspecified type ([facility]) Discharge Disposition: Home or Self Care [...] can be contacted during weekday officehours at [phone]. If there is an emergency, Dr. Navarro may also be contacted via pager by calling the [facility] at [phone] or [phone] (pager # [phone]). documented in this encounter Medications at Time [...] last A1c was 9.1. According to her nursery rn, patient is instructed to take 32 units [...] told years ago ??? Depression ??? 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 History of CAD (history of DE or a positive ETT, current ischemic chest [...] SERVICE DATE: 06/16/2020 SURGEON: Elza Navarro DPM BINDERY LIBRARY TECHNICAL ASSISTANT: None. PREOPERATIVE DIAGNOSIS: Left great toe osteomyelitis. [...] retained. Elza Navarro DPM / DC Confirmation: [id number] Dictation ID: [id number] cc: documented in this encounter Miscellaneous Notes * Brief Op Note - Elza Navarro DPM - 06/16/2020 1644 EST Date: 06/16/2020 Location: [facility] OR Name: Cristy Luo, : 1985, Diagnosis Pre-op Diagnosis * Osteomyelitis of toe of left foot ([facility]) [M86.9] * Type 2 diabetes mellitus with diabetic polyneuropathy, with long-term current use of insulin ([facility]) [E11.42, Z79.4] Post-op Diagnosis * Osteomyelitis of toe of left foot ([facility]) [M86.9] * Type 2 diabetes mellitus with diabetic polyneuropathy, with long-term current use of insulin ([facility]) [E11.42, Z79.4] Procedures Left great toe amputation 06785 - [place] AMPUTATION TOE,MT-P [facility] Surgeons * Elza Navarro DPM - Primary Procedure Summary Anesthesia: Monitor Anesthesia Care ASA: ASA status not filed in the log. Estimated Blood Loss: < 5 cc Total IV Fluids: per anesthesia Staff: [employer] Truck Driver: Cherie Mayes RN Scrub Person: Arturo Pelletier Patient Campaign Analyst: Carlita Charles Indications: Stella Luo is an [...] protocol. Patient will call GUSTAVO Collado (Diabetes CONTROL SUPERVISOR) for any further questions regarding diabetes management pre op NAOMI NAVA RN * PAT Note - Naomi Nava RN - 06/13/2020 4653 EST COVID 19 Screening Perioperative at time [...] instruct them to call us back at [phone] to report symptoms (If patient is in [...] [facility] Adult Primary Care - [address] [address] Carrington Calderon MD 1 [facility] [address] [place] [address] 02/27/2024 8:30 EDT Telemedicine [facility] Sleep Program - [address] 7[address]851 Dwight Colbert [address] [place] [address] [phone] 02/29/2024 10:[address] [facility] Radiology Nuclear Medicine and PET - [address] [phone] 02/29/2024 14:[address] [facility] Radiology Nuclear Medicine and PET - [address] 900331 [phone] 03/01/2024 8:[address] [facility] Radiology Nuclear Medicine and PET [address] [address] 03/01/2024 9:[address] [facility] Radiology Nuclear Medicine and PET [address] [address] Pending Results Name Type Priority Associated Diagnoses [...] EST Osteomyelitis of toe of left foot ([facility]) Type 2 diabetes mellitus with diabetic polyneuropathy, with long-term current use of insulin ([facility]) Special Needs Foot Set, Patient already has surgical shoe POCT GLUCOSE, INTERFACED Routine 06/16/2020 14:40 EST POCT CSN BARCODE URINE PREG TEST STAT 06/16/2020 14:22 EST documented in this encounter Results * PATHOLOGY - SCANNED (06/20/2020 11:10 EST) 06/20/2020 11:1 0 EST Scan 2 Packing Machine Feeder LAB INFO SERVICE AN D SUPPORT & PHONE RESULT * SURGICAL PATHOLOGY (06/16/2020 16:21 EST) Final Diagnosis A. TOE, LEFT GREAT, AMPUTATION: - Acute osteomyelitis. - Disarticulated joint with no gross evidence of acute osteomyelitis. - Skin with ulceration and acute cellulitis. 06/19/2020 15:19 EST [facility] Attestation There was significant resident/fellow involvement in the diagnostic evaluation of this case. By the signature below, the attending physician certifies that they have personally conducted a gross and/or microscopic examination of the described specimens and rendered or confirmed the above diagnosis. 06/19/2020 15:19 [facility] at 1519 Clinical History Left great toe osteomyelitis 06/19/2020 15:19 [facility] Gross Description A. [...] unguis is pale yellow firm and unremarkable. Entry Level Project Coordinator sections are submitted as follows: BLOCK SHIELDS A1-A2- underlying bone, acid decalcification A3- defect to skin and soft tissue margins EUNICE GUAJARDO(ASCP) 06/17/2020 11:11 06/19/2020 15:19 [facility] Resident/Cash w: Emory Nazario DO 06/19/2020 15:19 [facility] Performing Lab [facility] 15:19 [facility] Scanned Images 06/19/2020 15:19 [facility] Tissue AMPUTATION / Unknown 06/16/2020 16:21 EST 06/16/2020 21:33 EST Comment:Left great toe osteo myelitis Elza Navarro DPDickson PATHOLOGY ORDERABLES [facility] [address] [place] [address] * (ABNORMAL) ANAEROBE CULTURE/SMEAR(INC. AEROBES), OTHER (06/16/2020 16:21 EST) Organism ID Moderate Streptococcus agalactiae(A) 1 8:41 [facility] Comment:Penicillin and ampic illin are drugs of choice for treatment of beta hemolytic streptococcal infections. Organism ID Few Staphylococcus aureus(A) VITEK SUSCEPTIBILITY 1 8:41 [facility] Comment:Susceptible to nafci llin, cephalosporins and other beta lactam antibiotics (mecA gene product absent). Organism ID Few Gram-Positive Rods Aerobic (Group) 1 8:41 [facility] Organism ID Rare Prevotella bivia(A) 1 8:41 [facility] Organism ID Few Anaerococcus tetradius(A) 1 8:41 [facility] Smear Many Neutrophils Present 1 8:41 [facility] Smear Moderate Gram Positive Cocci 1 8:41 [facility] Bone ENTIRE TOE [...] DPM MICROBIOLOGY - GENER AL ORDERABLES [facility] [address] [place] [address] * (ABNORMAL) POCT GLUCOSE, INTERFACED (06/16/2020 14:40 EST) Glucose, POC 166(H) 70 - 100 mg/dL 06/16/2020 14:43 EST [facility] ball fringe machine operator ID [id number] 06/16/2020 14:43 EST [facility] HN LAB POC COMMENT (GLUCOSE) Test Performed by Nursing Services 06/16/2020 14:43 EST [facility] Blood CAPILLARY BLOOD / Unknown 06/16/2020 14:40 EST 06/16/2020 14:43 EST Elza Navarro DPM POINT OF CARE TEST O RDERABLES Performing Organization Address City/[facility]/ZIP Co de Phone Number [facility] [address] [place] [address] * POCT CSN BARCODE URINE PREG TEST (06/16/2020 14:22 EST) Hold Hold 06/16/2020 16:30 EST [facility] Urine URINE SPECIMEN COLLECTION, CLEAN CATCH / Unknown 06/16/2020 14:22 EST 06/16/2020 14:22 EST Tiff Salcedo MD LAB INFO SERVICE AND SUPPORT & PHONE RESULT Performing Organization Address City/[facility] Co de Phone Number [facility] [address] [place] [address] documented in this encounter Visit Diagnoses Diagnosis Osteomyelitis of left foot, unspecified type ([facility]) Osteomyelitis of toe of left foot ([facility]) Unspecified osteomyelitis, ankle and foot Type 2 diabetes mellitus with diabetic polyneuropathy, with long-term current use of insulin ([facility]) documented in this encounter Admitting Diagnoses Diagnosis Osteomyelitis of toe of left foot ([facility]) Unspecified osteomyelitis, ankle and foot Type 2 diabetes mellitus with diabetic polyneuropathy, with long-term current use of insulin ([facility]) documented in this encounter Administered [...]
--- OUTSIDE RECORDS SUMMARY | 2024-02-06 13:37 | XMS_ITS | Encounter Summary ---
Author Organization [facility] Address [address] [place] [address] Care Team Providers Care Home Mission Worker Name Role Phone Unavailable Primary Care Provider Unavailabl e Reason for Visit * Auth/Cert Specialty Diagnoses / Procedures Referred By iKt t Referred To Contact Diagnoses Encounter for sterilization Procedures [place] LAP,RMV ADNEXAL STRUCTURE Laparoscopic Bilateral Salpingectomy Referral ID Status Reason Start Date Expiration Date Visits Re quested Visits Authorized [id number] 1 1 Encounter Details Date Type Department Care Team (Late st Contact Info) Description 06/16/2020 16:00 EST Anesthesia Event [facility] OR [address] [place], [place] [phone] Mushtaq Vuong MD 111 [facility], Level [address] [place] [phone] Elliott Skinner MD Anesthesia Record Procedure Summary [...] Barahona RN 08/06/20 0414 by Nanda Gibson, candy rolling machine operator 03/10/20; Abrasion; Right, Plantar; N; Partial thickness; [...] [facility]als [facility]. Vitals Value Taken Time BP 06/16/20 1644 [...] ??? Depression ??? Diabetes ([facility]) A1c 10.3 on 11/28/2019 - [...] protocol. Patient will call GUSTAVO Collado (Diabetes PACKING AND SHIPPING CLERK) for any further questions regarding diabetes management [...] instruct them to call us back at [phone] to report symptoms (If patient is in [...] [facility] Adult Primary Care - [address] [address] Carrington Calderon MD [address] [phone] 02/27/2024 8:30 EDT Telemedicine [facility] Sleep Program - [address] [phone] Dwight Colbert [address] [place] [phone] 02/29/2024 10:30 EDT Appointment [facility] Radiology Nuclear Medicine and PET [address] [phone] 02/29/2024 14:30 EDT Appointment [facility] Radiology Nuclear Medicine and PET [address] [phone] 03/01/2024 8:00 EDT Appointment [facility] Radiology Nuclear Medicine and PET [address] [phone] 03/01/2024 9:30 EDT Appointment [facility] Radiology Nuclear Medicine and [address] [phone] documented as of this encounter Visit Diagnoses [...]
--- OUTSIDE RECORDS SUMMARY | 2024-02-06 13:37 | XMS_ITS | Encounter Summary ---
Author Organization [facility] Address [address] [place] [address] Care Team Providers Care Impregnator Operator Name Role Phone Unavailable Primary Care Provider Unavailabl e Reason for Visit * Reason Onset Date Comments Medication Management 06/13/2020 Encounter Details Date Type Department Care Team (Late st Contact Info) Description 06/13/2020 Telephone [facility] Endocrinology - [facility] [address] [place] [address] Sara Zafar NP [address] [facility] [address] [place] [phone] Medication Management Social History Tobacco [...] [facility] Adult Primary Care - [address] [phone] Carrington Calderon MD [address] [facility] 1 [place] [phone] 02/27/2024 8:30 EDT Telemedicine [facility] Sleep Program - [address] [place] [address] Sayra Dwight [address] [place] [address] 02/29/2024 10:30 EDT [facility] Radiology Nuclear Medicine and PET - [address] [phone] 02/29/2024 14:30 EDT [facility] Radiology Nuclear Medicine and PET - [address] [phone] 03/01/2024 8:00 EDT Appointment [facility] Radiology Nuclear Medicine and PET - [address] [phone] 03/01/2024 9:30 EDT Appointment [facility] Radiology Nuclear Medicine and PET - [address] [phone] documented as of this encounter Visit Diagnoses Not on filedocumented in this encounter
--- OUTSIDE RECORDS SUMMARY | 2024-02-06 13:37 | XMS_ITS | Encounter Summary ---
Author Organization [facility] Address [address] [place] [address] Care Team Providers Care Product Design Engineer Name Role Phone Unavailable Primary Care Provider Unavailabl e Reason for Referral * SPINNING LATHE OPERATOR HYDRAULIC (Routine) - Specialty Report Received Specialty Diagnoses / Procedures Referred By Kit t Referred To Contact Diagnoses of unknown anatomic location Procedures OB FIRST TRIMESTER (LESS THAN 14 WEEKS) TRANSVAGINAL David Martínez MD [address] [place] [phone] Referral ID Status Reason Start Date Expiration Date V isits Requested Visits Authorized [id number] Specialty Report Received 06/19/2020 1 1 Reason for Visit * SPINNING LATHE OPERATOR HYDRAULIC (Routine) - Specialty Report Received Specialty Diagnoses / Procedures Referred By Kit goode Referred To Contact Diagnoses of unknown anatomic location Procedures US OB FIRST TRIMESTER (LESS THAN 14 WEEKS) TRANSVAGINAL David Martínez MD [address] [place] [phone] Referral ID Status Reason Start Date Expiration Date V isits Requested Visits Authorized [id number] Specialty Report Received 06/19/2020 1 1 Encounter Details Date Type Department Care Team (Latest Contact Info) Description 06/20/2020 9:00 EST - 06/20/2020 23:59 EST Hospital Encounter [facility] [address] [address] of unknown anatomic location Discharge Disposition: Home [...] Visit [facility] Adult Primary Care - [address] [address] Carrington Calderon MD [address] [phone] 02/27/2024 8:30 EDT Telemedicine [facility] Sleep Program - [address] [address] Sayra Dwight [address] [place] [phone] 02/29/2024 10:30 EDT Appointment [facility] Radiology Nuclear Medicine and PET [address] [phone] 02/29/2024 14:30 EDT Appointment [facility] Radiology Nuclear Medicine and PET [address] [phone] 03/01/2024 8:00 EDT Appointment [facility] Radiology Nuclear Medicine and PET [address] [phone] 03/01/2024 9:30 EDT Appointment [facility] Radiology Nuclear Medicine and PET [address] [phone] documented as of this encounter Procedures Procedure [...] Sufficient. Impression 1st Trimester OB scan ,transvaginal +[id number] There is no visualized gestational sac either [...] The adnexa appear normal. Follow-up Per the FUNCTIONAL MENTAL DISABILITY TEACHER service. Comment ========= Results discussed w/patient. DATE [...] Sufficient. Impression 1st Trimester OB scan ,transvaginal +[id number] There is no visualized gestational sac either [...] The adnexa appear normal. Follow-up Per the FUNCTIONAL MENTAL DISABILITY TEACHER service. Comment ========= Results discussed w/patient. DATE [...] Sufficient. Impression 1st Trimester OB scan ,transvaginal +[id number] There is no visualized gestational sac either [...] The adnexa appear normal. Follow-up Per the FUNCTIONAL MENTAL DISABILITY TEACHER service. Comment ========= Results discussed w/patient. DATE OF SERVICE: 06/20/2020 David Martínez MD [facility] OB ORDERAB LES documented in this encounter Visit Diagnoses Diagnosis of unknown anatomic location state, incidental documented in this encounter
--- OUTSIDE RECORDS SUMMARY | 2024-02-06 13:37 | XMS_ITS | Encounter Summary ---
Author Organization [facility] Address [address] [place] [address] Care Team Providers Care Senior Piping Designer Name Role Phone Unavailable Primary Care Provider Unavailabl e Encounter Details Date Type Department Care Team (Late st Contact Info) Description 06/13/2020 Orders Only [facility] Adult Primary Care - [address] [phone] Tonja Alejandro PA-C [address] [place] [address] [place] [phone] Tobacco abuse (Primary Dx) Social History [...] Visit [facility] Adult Primary Care - [place] [address] [place], [place] [phone] Carrington Calderon MD 1 [facility] Level 1 [place] [address] 02/27/2024 8:30 EDT Telemedicine [facility] Sleep Program - [address] [place] [address] Dwight Colbert [address] [place] [phone] 02/29/2024 10:30 EDT Appointment [facility] Radiology Nuclear Medicine and PET - [address] [address] 02/29/2024 14:30 EDT Appointment [facility] Radiology Nuclear Medicine and PET - [address] [phone] 03/01/2024 8:00 EDT Appointment [facility] Radiology Nuclear Medicine and PET - [address] [phone] 03/01/2024 9:30 EDT Appointment [facility] Radiology Nuclear Medicine and PET [address] [address] documented as of this encounter Visit Diagnoses Diagnosis Tobacco abuse- Primary Tobacco use disorder documented in this encounter
--- OUTSIDE RECORDS SUMMARY | 2024-02-06 13:37 | XMS_ITS | Encounter Summary ---
Author Organization [facility] Address [address] [place] [address] Care Team Providers Care Data Processing Systems Consultant Name Role Phone Unavailable Primary Care Provider Unavailabl e Reason for Visit * Reason Comments Vaginal Bleeding Vaginal bleeding, ba ck pain, and cramping since tuesday, not soaking pads, only when wiping. seen here previously for toe amputation. Encounter Details Date Type Department Care Team (Late st Contact Info) Description 06/23/2020 8:23 EST - 06/23/2020 14:10 EST Emergency [facility] Emergency Department - [address] [address] Siobhan Hare PA-C [address] [place] [address], Level 1 [place] [address] of unknown anatomic location (Primary [...] Means Destination Comment s Home or Self Halfway Pt dc home with WC with partner, [...] 10/2018 10w4d ECTOPIC Comments: interstitial diagnosed at [facility]; given MTX 10/26/18 7 SAB 01/2018 6w0d SAB Comments: D&C at [facility] after nonviable on US; had to have repeat D&Bhavna April for retained POCs 6 06/2017 6w0d SAB Comments: D&C at [facility]; nonviable seen on US; fourth with current 5 SAB 02/2017 6w0d SAB Comments: D&C at [facility]; third with current 4 SAB 08/2015 10w0d SAB Comments: D&C at [facility]; 2nd with current 3 SAB 01/2015 9w0d SAB Comments: D&C at [facility]; first current 2 SAB 2005 6w0d SAB Comments: first ; ex ; twin confirmed by US at [facility]; no medical or surgical tx 1 Past GynHx: MTX given 10/26/2018 for interstitial . See above. PMedHx: Past Medical History: Diagnosis Date ??? Anxiety ??? Arthritis 12/05/19- Spine- told years ago ??? Depression ??? Diabetes ([facility]) A1c 10.3 on 11/28/2019 - poorly controlled ??? Difficulty opening mouth 06/13/2020 pain with opening mouth wide ??? Does not exercise 06/13/2020 due to infected toe ??? History of general anesthesia ??? Hx of ectopic 06/20/2020 ??? Irritable bowel syndrome 06/13/2020 ? ? Nausea & vomiting occasionally ??? Obesity, unspecified ??? Osteomyelitis ([facility]) of left great toe ??? [...] file Gets together: Not on file Attends rastafari service: Not on file Active member of [...] Kenyon MD 06/23/2020 13:39 PGY4, OBGYN Pager #[phone] documented in this encounter ED Notes * [...] the Emergency Department: Good PCP: Tonja Alejandro [facility] 06/28/2020 17:56 No flowsheet data found. * Madelin Ma RN - 06/23/2020 1230 EST ADDICTION COUNSELOR at bedside * Marychuy Kaufman - 06/23/2020 0905 EST Blood drawn via saline lock per protocol, tiger and purple tube(s) sent to lab per order. documented in this encounter Plan of Treatment Upcoming Encounters Date Type Department Care Team (Late st Contact Info) Description 02/21/2024 9:45 EDT Office Visit [facility] Adult Primary Care - [address] [phone] Carrington Calderon MD 1 [facility] 1 [place] [phone] 02/27/2024 8:30 EDT Telemedicine [facility] Sleep Program - [address] [place] [address] [place] [address] Dwight Colbert [address] [place] [address] 02/29/2024 10:30 EDT [facility]ment [facility] Radiology Nuclear Medicine and PET - [address] [address] 02/29/2024 14:30 EDT Appointment [facility] Radiology Nuclear Medicine and PET [address] 099191 03/01/2024 8:00 EDT Appointment [facility] Radiology Nuclear Medicine and PET - [address] [phone] 03/01/2024 9:30 EDT Appointment [facility] Radiology Nuclear Medicine and PET - [address] [phone] documented as of this encounter Procedures Procedure [...] for nonviable early in the first trimester. [place] Journal of Medicine 369.15 (2013): 1835-4615. I have personally reviewed the images and [...] AND SYMPTOMS/COMMENTS: of unknown location, LMP 05/06, [id number] two days ago, not doubling appropriately COMPARISON: [...] for nonviablepregnancy early in the first trimester. [place] Journal of Mucpcfrx112.15 (2013): 8774-8422. I have personally reviewed the images and the above interpretation andagree with the findings. Siobhan Hare PA-C IMG US OB OR DERABLES * HN LAB CBC SMEAR REVIEW (06/23/2020 8:53 EST) Differential Comment Slide was examined by a technologist to verify the WBC and/or platelet count. 06/23/2020 9:44 [facility] Blood VENOUS BLOOD / Unknown Venipuncture / Unknown 06/23/2020 8:53 EST 06/23/2020 9:06 EST Siobhan Hare PA-C HEMATOLOGY & PF4 ORDERABLES [facility] [address] [place] [address] * (ABNORMAL) COMPLETE BLOOD COUNT AND DIFFERENTIAL (06/23/2020 8:53 EST) WBC 6.42 4.00 - 12.40 K/cmm 06/23/2020 9:45 [facility] RBC 4.96 3.86 - 5.04 M/cmm 06/23/2020 9:45 [facility] Hemoglobin 15.4(H) 11.6 - 15.2 gm/dL 06/23/2020 9:45 [facility] HCT 43.6 34.9 - 44.4 % 06/23/2020 9:45 [facility] MCV 88 81 - 98 fl 06/23/2020 9:45 [facility] MCH 31.0 26.7 - 33.3 pg 06/23/2020 9:45 [facility] MCHC 35.3 32.1 - 35.9 gm/dL 06/23/2020 9:45 [facility] RDW-CV 12.0 <14.7 % 06/23/2020 9:45 [facility] RDW-SD 38.6 <50.4 fl 06/23/2020 9:45 [facility] PLT 06/23/2020 9:45 [facility] Comment:Unreportable due to presence of platelet clumps. MPV 06/23/2020 9:45 [facility] Comment:Not Available % Neutrophils 52.1 % 06/23/2020 9:45 [facility] % Lymphocytes 41.0 % 06/23/2020 9:45 [facility] % Monocytes 4.7 % 06/23/2020 9:45 [facility] % Eosinophils 1.7 % 06/23/2020 9:45 [facility] % Basophils 0.3 % 06/23/2020 9:45 [facility] % Immature Grans 0.2 % 06/23/19 9:45 [facility] Absolute Neutrophils 3.35 2.20 - 8.85 K/cmm 06/23/2020 9:45 [facility] Absolute Lymphocytes 2.63 1.09 - 3.30 K/cmm 06/23/2020 9:45 [facility] Absolute Monocytes 0.30 0.10 - 0.80 K/cmm 06/23/2020 9:45 [facility] Absolute Eosinophils 0.11 0.03 - 0.61 K/cmm 06/23/2020 9:45 [facility] ABS Basophils 0.02 0.01 - 0.11 K/cmm 06/23/2020 9:45 [facility] Absolute Immature Grans 0.01 0.00 - 0.06 K/cmm 06/23/2020 9:45 [facility] Type of Differential: Auto 06/23/2020 9:45 [facility] Blood VENOUS BLOOD / Unknown Venipuncture / Unknown 06/23/2020 8:53 EST 06/23/2020 9:06 EST Siobhan Hare PA-C PACKAGES & D NA PROBE ORDERABLES [facility] [address] [place] [address] * (ABNORMAL) COMPREHENSIVE METABOLIC PANEL (CMP) (06/23/2020 8:53 EST) Sodium 143 136 - 145 mEq/L 06/23/2020 9:24 [facility] Potassium 5.0 3.5 - 5.0 mEq/L 06/23/2020 9:24 [facility] Comment:Slight hemolysis chica ntified, interpret with caution as hemolysis will elevate potassium result. Chloride 101 96 - 110 mEq/L 06/23/2020 9:24 [facility] CO2 Total 28 22 - 32 mEq/L 06/23/2020 9:24 [facility] Glucose 249(H) 70 - 100 mg/dL 06/23/2020 9:24 [facility] BUN 12 10 - 26 mg/dL 06/23/2020 9:24 [facility] Comment: Slight hemolysis identified, interpret with caution as results may be affected due to hemolysis. Creatinine 0.44(L) 0.52 - 1.04 mg/dL 06/23/2020 9:24 [facility] eGFR 131 >60 mL/min/1.7 3m2 06/23/2020 9:24 [facility] Comment:eGFR calculated gil g CKD-EPI equation for non- Americans. Multiply eGFR by 1.16 for patients. Total Protein 8.5(H) 6.3 - 8.2 g/dL 06/23/2020 9:24 [facility] Comment:Slight hemolysis chica ntified, interpret with caution as results may be affected due to hemolysis. Albumin 4.9 3.4 - 4.9 g/dL 06/23/2020 9:24 [facility] Comment:Slight hemolysis chica ntified, interpret with caution as results may be affected due to hemolysis. Alkaline Phosphatase 118 38 - 126 U/L 06/23/2020 9:24 [facility] Comment:Slight hemolysis chica ntified, hemolysis will decrease ALKP result. Interpret with caution as results may be affected due to hemolysis. AST 36 15 - 46 U/L 06/23/2020 9:24 [facility] Comment:Slight hemolysis chica ntified, interpret with caution as results may be affected due to hemolysis. ALT 20 <35 U/L 06/23/2020 9:24 [facility] Bilirubin, Total 0.7 <1.4 mg/dL 06/23/19 9:24 [facility] Calcium 10.2 8.5 - 10.5 mg/dL 06/23/2020 9:24 [facility] Calculated Calcium 9.5 8.5 - 10.5 mg/dL 06/23/2020 9:24 [facility] Comment:Slight hemolysis chica ntified, interpret with caution as results may be affected due to hemolysis. Blood VENOUS BLOOD / Unknown Venipuncture / Unknown 06/23/2020 8:53 EST 06/23/2020 9:06 EST Siobhan Hare PA-C CHEMISTRY & BLOOD GAS ORDERABLES [facility] [address] [place] [address] * (ABNORMAL) QUANT BETA HCG, (06/23/2020 8:53 EST) Beta HCG Quant, 111(H) <5 mIU/ml 06/23/2020 9:38 EST [facility] Comment: NOTE: : Negative: Less than 5mIU/mL Indeterminant: Between 5 and 25 mIU/mL, recommend repeat testing in 48 hours Positive: Greater than 25 mIU/mL The results of this assay can be falsely lowered due to the consumption of Biotin. Blood VENOUS BLOOD / Unknown Venipuncture / Unknown 06/23/2020 8:53 EST 06/23/2020 9:06 EST Siobhan Hare PA-C CHEMISTRY & BLOOD GAS ORDERABLES [facility] [address] [place] [address] documented in this encounter Visit Diagnoses Diagnosis of unknown anatomic location- Primary state, incidental documented in this encounter
--- OUTSIDE RECORDS SUMMARY | 2024-02-06 13:37 | XMS_ITS | Encounter Summary ---
Author Organization [facility] Address [address] [place] [address] Care Team Providers Care Surveillance Inspector Name Role Phone Unavailable Primary Care [...] [facility] Adult Primary Care - [address] [phone] Carrington Calderon MD [address] [phone] 02/27/2024 8:30 EDT Telemedicine [facility] Sleep Program - [address] 189391 Dwight Colbert [address] [place] [phone] 02/29/2024 10:30 EDT Appointment [facility] Radiology Nuclear Medicine and PET - [address] [phone] 02/29/2024 14:30 EDT Appointment [facility] Radiology Nuclear Medicine and PET - [address] [phone] 03/01/2024 8:00 EDT Appointment [facility] Radiology Nuclear Medicine and PET - [address] [address] 03/01/2024 9:30 EDT Appointment [facility] Radiology Nuclear Medicine and PET - [address] [phone] documented as of this encounter Visit Diagnoses Not on filedocumented in this encounter
--- OUTSIDE RECORDS SUMMARY | 2024-02-06 13:37 | XMS_ITS | Encounter Summary ---
Author Organization [facility] Address [address] [place] [address] Care Team Providers Care Phone Technician Name Role Phone Unavailable Primary Care Provider Unavailabl e Encounter Details Date Type Department Care Team (Late st Contact Info) Description 06/21/2020 9:15 EST Phlebotomy Only [facility] 2 Phlebotomy [address] [place] [address] Hand Bender, Acc Phlebotomy of unknown anatomic location Social [...] [facility] Adult Primary Care - [address] [phone] Carrington Calderon MD [address] [phone] 02/27/2024 8:30 EDT Telemedicine [facility] Sleep Program - [address] 191231 Dwight Colbert [address] [place] [address] [phone] 02/29/2024 10:30 EDT [facility] Rad[facility] Nuclear Medicine and PET - [address] [phone] 02/29/2024 14:30 EDT Appointment [facility] Radiology Nuclear Medicine and PET [address] [address] 03/01/2024 8:00 EDT Appointment [facility] Radiology Nuclear Medicine and PET [address] [address] 03/01/2024 9:30 EDT Appointment [facility] Radiology Nuclear Medicine and PET [address] [address] documented as of this encounter Procedures Procedure Name Priority Date/Time Associated Diagnosis Comments QUANT BETA HCG, Routine 06/21/2020 9:14 EST of unknown anatomic location documented in this encounter Results * (ABNORMAL) QUANT BETA HCG, (06/21/2020 9:14 EST) Beta HCG Quant, 152(H) <5 mIU/ml 06/21/2020 11:01 EST [facility] Comment: NOTE: : [...] Martínez MD CHEMISTRY & BLOOD GAS ORDERABLES [facility] [address] [place] [address] documented in this encounter Visit Diagnoses Diagnosis of unknown anatomic location state, incidental documented in this encounter
--- OUTSIDE RECORDS SUMMARY | 2024-02-06 13:37 | XMS_ITS | Encounter Summary ---
Author Organization [facility] Address [address] [place] [address] Care Team Providers Care Satellite Communications Operator Name Role Phone Unavailable Primary Care Provider Unavailabl e Encounter Details Date Type Department Care Team (Late st Contact Info) Description 06/25/2020 11:45 EST Phlebotomy Only [facility] ED Center 2 Phlebotomy [address] [place] [address] Airplane Gas Tank Liner Assembler, Acc Phlebotomy of unknown anatomic location Social [...] [facility] Adult Primary Care - [address] [phone] Carrington Calderon MD [address] [phone] 02/27/2024 8:30 EDT Telemedicine [facility] Sleep Program - [address] [phone] Dwight Colbert [address] [place] [phone] 02/29/2024 10:30 EDT [facility] and PET - [address] [phone] 02/29/2024 14:30 EDT Appointment [facility] Radiology Nuclear Medicine and PET [facility] [address] [place] [address] 03/01/2024 8:00 EDT Appointment [facility] Radiology Nuclear Medicine and PET [address] [address] 03/01/2024 9:30 EDT Appointment [facility] Radiology Nuclear Medicine and PET [address] [address] documented as of this encounter Procedures Procedure Name Priority Date/Time Associated Diagnosis Comments QUANT BETA HCG, Routine 06/25/2020 10:45 EST of unknown anatomic location documented in this encounter Results * (ABNORMAL) QUANT BETA HCG, (06/25/2020 10:45 EST) Beta HCG Quant, 49(H) <5 mIU/ml 06/25/2020 12:28 EST [facility] Comment: NOTE: : Negative: [...] ORDERABLES [facility] [address] [place] [address] documented in this encounter Visit Diagnoses Diagnosis of unknown anatomic location state, incidental documented in this encounter
--- OUTSIDE RECORDS SUMMARY | 2024-02-06 13:37 | XMS_ITS | Encounter Summary ---
Author Organization [facility] Address [address] [place] [address] Care Team Providers Care Brake Linings Coater Name Role Phone Unavailable Primary Care Provider Unavailabl e Reason for Visit * Reason Onset Date Comments Pre-procedure 06/05/2020 Encounter Details Date Type Department Care Team (Latest Contact Info) Description 06/05/2020 Prep for Procedure [facility] Foot & Ankle Program - [address] [phone] Elza Navarro DPM [address] [place] [address] Osteomyelitis of left foot, unspecified [...] [facility] Adult Primary Care - [address] [phone] Carrington Calderon MD 1 [facility] 1 [place] [phone] 02/27/2024 8:30 EDT Telemedicine [facility] Sleep Program - [address] 229871 Dwight Colbert [address] [place] [address] [phone] 02/29/2024 10:30 EDT [facility] Radiology Nuclear Medicine and PET - [address] 165401 02/29/2024 14:30 EDT [facility] and PET - [address] [phone] 03/01/2024 8:00 EDT Appointment [facility] Radiology Nuclear Medicine and PET - [address] [phone] 03/01/2024 9:30 EDT Appointment [facility] Radiology Nuclear Medicine and PET [address] [phone] documented as of this encounter Visit Diagnoses Diagnosis Osteomyelitis of left foot, unspecified type ([facility])- Primary documented in this encounter
--- OUTSIDE RECORDS SUMMARY | 2024-02-06 13:37 | XMS_ITS | Encounter Summary ---
Author Organization [facility] Address [address] [place] [address] Care Team Providers Care Plaster Helper Name Role Phone Unavailable Primary Care Provider Unavailabl e Reason for Visit * Reason Comments Encounter Details Date Type Department Care Team (Late st Contact Info) Description 06/20/2020 9:45 EST Office Visit [facility] Reproductive Medicine & Infertility Center - [address] [phone] Cielo Duggan MD [address] [facility], Level [address] [place] [address] of unknown anatomic location (Primary [...] Notes * Cielo Duggan MD - 06/20/2020 0911 EST Images from the original note were not included. [facility]-Level 4 [facility] FIRST TRIMESTER ULTRASOUND Reason for Visit: First [...] precaustions 2.) hcg am of 06/21 with CHECK GRADER service to follow documented in this encounter Plan of Treatment Upcoming Encounters Date Type Department Care Team (Late st Contact Info) Description 02/21/2024 9:45 EDT Office Visit [facility] Adult Primary Care - [address] [address] Carrington Calderon MD 1 [facility] Level 1 [place] [phone] 02/27/2024 8:30 EDT Telemedicine [facility] Sleep Program - [place] [address] [place] [address] Dwight Colbert [address] [place] [address] 02/29/2024 10:30 EDT Appointment [facility] Radiology Nuclear Medicine and PET [address] [address] 02/29/2024 14:30 EDT Appointment [facility] Radiology Nuclear Medicine and PET [address] [phone] 03/01/2024 8:00 EDT Appointment [facility] Radiology Nuclear Medicine and PET [address] [phone] 03/01/2024 9:30 EDT Appointment [facility] Radiology Nuclear Medicine and PET [address] [address] documented as of this encounter Visit Diagnoses [...]
--- OUTSIDE RECORDS SUMMARY | 2024-02-06 13:37 | XMS_ITS | Encounter Summary ---
Author Organization [facility] Address [address] [place] [address] Care Team Providers Care Skidder Loader Name Role Phone Unavailable Primary Care Provider Unavailabl e Reason for Visit * Reason Onset Date Comments Labs Only 06/05/2020 covid pre op scr eening Encounter Details Date Type Department Care Team (Late st Contact Info) Description 06/05/2020 Orders Only [facility] Foot & Ankle Program - [address] [address] Elza Navarro DPM [address] [place] [address] Osteomyelitis of left foot, unspecified type ([facility]) (Primary Dx) Social History Tobacco Use Types [...] [facility] Adult Primary Care - [address] 902171 Carrington Calderon MD 1 [facility] 1 [place] [phone] 02/27/2024 8:30 EDT Telemedicine [facility] Sleep Program - [address] [address] Dwight Colbert [address] [place] [address] [phone] 02/29/2024 10:30 EDT Appointment [facility] Radiology Nuclear Medicine and PET [address] [phone] 02/29/2024 14:30 EDT Appointment [facility] Radiology Nuclear Medicine and PET [address] [phone] 03/01/2024 8:00 EDT Appointment [facility] Radiology Nuclear Medicine and PET [address] [phone] 03/01/2024 9:30 EDT Appointment [facility] Radiology Nuclear Medicine and PET [address] [phone] documented as of this encounter Results * COVID-19 TESTING (06/09/2020 9:28 EST) COVID-19 rt-PCR Result Negative Negative 06/09/2020 16:34 [facility] Comment: This [...] history, and epidemiological information. Performed on the Tempolib instrument Performing [facility] 06/09/2020 16:34 [facility] Swab ENTIRE NASOPHARYNX / Unknown Swab / Unknown 06/09/2020 9:28 EST 06/09/2020 9:28 EST Elza Navarro DPM MICROBIOLOGY - GENER AL ORDERABLES [facility] [address] [place] [address] documented in this encounter Visit Diagnoses Diagnosis Osteomyelitis of left foot, unspecified type ([facility])- Primary documented in this encounter
--- OUTSIDE RECORDS SUMMARY | 2024-02-06 13:37 | XMS_ITS | Encounter Summary ---
Author Organization [facility] Address [address] [place] [address] Care Team Providers Care Gang Bore Operator Name Role Phone Unavailable Primary Care [...] [facility] Adult Primary Care - [address] [phone] Carrington Calderon MD [address] [phone] 02/27/2024 8:30 EDT Telemedicine [facility] Sleep Program - [address] 260671 Dwight Colbert [address] [place] [address] [phone] 02/29/2024 10:30 EDT Appointment [facility] Radiology Nuclear Medicine and PET - [address] 732251 02/29/2024 14:30 EDT Appointment [facility] Radiology Nuclear Medicine and PET - [address] [phone] 03/01/2024 8:00 EDT Appointment [facility] Radiology Nuclear Medicine and PET - [facility] [address] [place], [place] [phone] 03/01/2024 9:30 EDT Appointment [facility] Radiology Nuclear Medicine and PET - [address] [phone] documented as of this encounter Visit Diagnoses Not on filedocumented in this encounter
--- OUTSIDE RECORDS SUMMARY | 2024-02-06 13:37 | XMS_ITS | Encounter Summary ---
Author Organization [facility] Address [address] [place] [address] Care Team Providers Care Court Of Appeals Judge Name Role Phone Unavailable Primary Care Provider Unavailabl e Reason for Visit * Reason Onset Date Comments Follow-up 06/25/2020 Encounter Details Date Type Department Care Team (Late st Contact Info) Description 06/25/2020 Telephone [facility] Women's Services [facility] [address] [place], [place] [phone] Susana Tomlinson, RN Follow-up Social History Tobacco [...] Encounter - Susana Tomlinson RN - 06/25/2020 1244 EST Spoke with Stella: advised HCG result [...] System [facility] Adult Primary Care - [address] [phone] Carrington Calderon MD [address] [address] 02/27/2024 8:30 EDT Telemedicine [facility] Sleep Program - [address] [phone] Dwight Colbert [address] [place] [address] [phone] 02/29/2024 10:30 EDT Appointment [facility] Radiology Nuclear Medicine and PET - [address] [phone] 02/29/2024 14:30 EDT Appointment [facility] Radiology Nuclear Medicine and PET [address] [phone] 03/01/2024 8:00 EDT Appointment [facility] Radiology Nuclear Medicine and PET [address] [phone] 03/01/2024 9:30 EDT Appointment [facility] Radiology Nuclear Medicine and PET [address] [phone] documented as of this encounter Visit Diagnoses Not on filedocumented in this encounter
--- OUTSIDE RECORDS SUMMARY | 2024-02-06 13:37 | XMS_ITS | Encounter Summary ---
Author Organization [facility] Address [address] [place] [address] Care Team Providers Care Rework Machine Operator Name Role Phone Unavailable Primary Care Provider Unavailabl e Reason for Visit * Reason Onset Date Comments Other 06/17/2020 Encounter Details Date Type Department Care Team (Late st Contact Info) Description 06/17/[address] [facility] Foot & Ankle Program - [address] [address] Elza Navarro [address] [place] [address] Other Social History Tobacco Use [...] [facility] [place] [address] Carrington Calderon MD [address] [address] 02/27/2024 8:30 EDT Telemedicine [facility] Sleep Program - [address] [address] ColbertDwight garner [address] [place] [address] 02/29/2024 10:30 EDT [facility]ointment [facility] Radiology Nuclear Medicine and PET - [address] [address] 02/29/2024 14:30 EDT [facility] Radiology Nuclear Medicine and PET - [address] 386771 03/01/2024 8:00 EDT [facility] Radiology Nuclear Medicine and PET - [address] [phone] 03/01/2024 9:30 EDT [facility] Radiology Nuclear Medicine and PET - [address] 056901 documented as of this encounter Visit Diagnoses Not on filedocumented in this encounter
--- OUTSIDE RECORDS SUMMARY | 2024-02-06 13:37 | XMS_ITS | Encounter Summary ---
Author Organization [facility] Address [address] [place] [address] Care Team Providers Care Gumming Machine Operator Name Role Phone Unavailable Primary Care Provider Unavailabl e Reason for Visit * Reason Onset Date Comments Follow-up 06/21/2020 Encounter Details Date Type Department Care Team (Late st Contact Info) Description 06/21/2020 Telephone [facility] [address] [place], [place] [phone] Mackenzie Kenyon MD [address] [phone] Follow-up Social History Tobacco Use Types Packs/Day [...] Kenyon MD 06/21/2020 12:12 PGY4, OBGYN Pager #[phone] documented in this encounter Plan of Treatment Upcoming Encounters Date Type Department Care Team (Late st Contact Info) Description 02/21/2024 9:45 EDT Office Visit [facility] Adult Primary Care - [address] 010981 Carrington Calderon MD [address] [phone] 02/27/2024 8:30 EDT Telemedicine [facility] Sleep Program - [address] 069161 Dwight Colbert [address] [place] [address] [phone] 02/29/2024 10:30 EDT Appointment [facility] Radiology Nuclear Medicine and PET - [address] [phone] 02/29/2024 14:30 EDT Appointment [facility] Radiology Nuclear Medicine and PET - [address] [phone] 03/01/2024 8:00 EDT Appointment [facility] Radiology Nuclear Medicine and PET - [address] [phone] 03/01/2024 9:30 EDT Appointment [facility] Radiology Nuclear Medicine and PET - [address] [address] documented as of this encounter Visit Diagnoses Diagnosis of unknown anatomic location- Primary state, incidental documented in this encounter
--- OUTSIDE RECORDS SUMMARY | 2024-02-06 13:37 | XMS_ITS | Encounter Summary ---
Author Organization [facility] Address [address] [place] [address] Care Team Providers Care Crocodile Farmer Name Role Phone Unavailable Primary Care Provider Unavailabl e Encounter Details Date Type Department Care Team (Latest Contact Info) Description 06/09/2020 9:35 EST Phlebotomy Only [facility] - [address] [place] [address] Osteomyelitis of left foot, unspecified type ([facility]) Social History Tobacco Use Types Packs/Day Years [...] [facility] Adult Primary Care - [address] 164051 Carrington Calderon MD [address] [phone] 02/27/2024 8:30 EDT Telemedicine [facility] Sleep Program - [address] [phone] Dwight Colbert [address] [place] [address] [phone] 02/29/2024 10:30 EDT Appointment [facility] Radiology Nuclear Medicine and PET - [address] [phone] 02/29/2024 14:30 EDT Appointment [facility] Radiology Nuclear Medicine and PET [address] [address] 03/01/2024 8:00 EDT Appointment [facility] Nuclear [facility] and [address] [address] 03/01/2024 9:30 EDT Appointment [facility] Nuclear [facility] and [address] [address] documented as of this encounter Procedures Procedure Name Priority Date/Time Associated Diagnosis Comments ZZCOVID-19 TEST [facility] PCR Today 06/09/2020 9:28 EST Osteomyelitis of left foot, unspecified type (HCC-CMS) COVID-19 TESTING Routine 06/09/2020 9:28 EST Osteomyelitis of left foot, unspecified type (HCC-CMS) documented in this encounter Results * COVID-19 TEST [facility] PCR (06/09/2020 9:28 EST) Swab ENTIRE NASOPHARYNX / Unknown Swab / Unknown 06/09/2020 9:28 EST 06/09/2020 9:28 EST Elza Navarro DPM MICROBIOLOGY - GENER AL ORDERABLES [facility] LABORATORY SERVICES [address] [place] [address] * COVID-19 TESTING (06/09/2020 9:28 EST) COVID-19 rt-PCR Result Negative Negative 06/09/2020 16:34 EST [facility] Comment: [...] history, and epidemiological information. Performed on the [employer] instrument Performing Lab [place] [facility] 06/09/2020 16:34 EST [facility] Swab ENTIRE NASOPHARYNX / Unknown Swab / Unknown 06/09/2020 9:28 EST 06/09/2020 9:28 EST Elza Navarro DPM MICROBIOLOGY - GENER AL ORDERABLES [facility] [address] [place] [address] documented in this encounter Visit Diagnoses Diagnosis Osteomyelitis of left foot, unspecified type (HCC-CMS) documented in this encounter
--- OUTSIDE RECORDS SUMMARY | 2024-02-06 13:37 | XMS_ITS | Encounter Summary ---
Author Organization [facility] Address [address] [place] [address] Care Team Providers Care Sorter Operator Name Role Phone Unavailable Primary Care Provider Unavailabl e Reason for Visit * Reason Comments Problem Encounter Details Date Type Department Care Team (Late st Contact Info) Description 06/25/2020 9:00 EST Office Visit [facility] Women's Services - [address] [phone] Ana Coronado MD [address] [place] [address], [address] [place] [address] Unwanted fertility (Primary Dx) Social [...] told years ago ??? Depression ??? Diabetes ([facility]) A1c 10.3 on 11/28/2019 - poorly controlled ??? Difficulty opening mouth 06/13/2020 pain with opening mouth wide ??? Does not exercise 06/13/2020 due to infected toe ??? History of general anesthesia ??? Hx of ectopic 06/20/2020 ??? Irritable bowel syndrome 06/13/2020 ? ? Nausea & vomiting occasionally ??? Obesity, unspecified ??? Osteomyelitis ([facility]) of left great toe ??? Peripheral [...] 8. View: Sufficient. Impression OB Transvaginal - 88538. 1. of unknown location with findings that [...] I spoke with Dr. Mims, the benign portable pinch riveter chief resident, and I will place a [...] [facility] Adult Primary Care - [address] 232171 Carrington Calderon MD [address] [phone] 02/27/2024 8:30 EDT Telemedicine [facility] Sleep Program - [address] [phone] Dwight Colbert [address] [place] [address] [phone] 02/29/2024 10:30 EDT Appointment [facility] Radiology Nuclear Medicine and PET - [address] 136661 02/29/2024 14:30 EDT Appointment [facility] Radiology Nuclear Medicine and PET [address] 385251 03/01/2024 8:00 EDT Appointment [facility] Radiology Nuclear Medicine and [address] [address] 03/01/2024 9:30 EDT Appointment [facility] Radiology Nuclear Medicine and PET - [address] [address] documented as of this encounter Visit Diagnoses [...]
--- OUTSIDE RECORDS SUMMARY | 2024-02-06 13:37 | XMS_ITS | Encounter Summary ---
Author Organization [facility] Address [address] [place] [address] Care Team Providers Care Cinder Block Maker Name Role Phone Unavailable Primary Care Provider Unavailabl e Reason for Visit * Reason Onset Date Comments Appointment Related 06/12/2020 Encounter Details Date Type Department Care Team (Late st Contact Info) Description 06/12/2020 Telephone [facility] Endocrinology - [address] [facility] [address] [place] [address] Appointment Related Social History Tobacco [...] [facility] - [address] 676071 Carrington Calderon MD 1 [facility] Level [address] [place] [phone] 02/27/2024 8:30 EDT Telemedicine [facility] Sleep Program - [address] [place] [address] Dwight Colbert [address] [place] [address] 02/29/2024 10:30 EDT Appointment [facility] Radiology Nuclear Medicine and PET - [address] [address] 02/29/2024 14:30 EDT Appointment [facility] Radiology Nuclear Medicine and PET - [address] [address] 03/01/2024 8:00 EDT Appointment [facility] Radiology Nuclear Medicine and PET - [address] 124401 03/01/2024 9:30 EDT Appointment [facility] Radiology Nuclear Medicine and PET - [address] 107471 documented as of this encounter Visit Diagnoses Not on filedocumented in this encounter
--- OUTSIDE RECORDS SUMMARY | 2024-02-06 13:37 | XMS_ITS | Encounter Summary ---
Author Organization [facility] Address [address] [place] [address] Care Team Providers Care Chiropractic Assistant Name Role Phone Unavailable Primary Care Provider Unavailabl e Reason for Visit * Reason Comments Foot Problem Encounter Details Date Type Department Care Team (Latest Contact Info) Description 06/25/2020 15:00 EST Post-op Visit [facility] Foot & Ankle Program - [address] [address] [address] [address] Osteomyelitis of left foot, unspecified type ([facility]) (Primary Dx); Type 2 diabetes mellitus with diabetic polyneuropathy, with long-term current use of insulin ([facility]) Social History Tobacco Use Types [...] 1. Osteomyelitis of left foot, unspecified type ([facility]) 2. Type 2 diabetes mellitus with diabetic polyneuropathy, with long-term current use of insulin ([facility]) No orders of the defined types [...] speech recognition software or keyboard data processing equipment repairer techniques. Minor irregularities or keyboarding misprints may be present documented in this encounter Plan of Treatment Upcoming Encounters Date Type Department Care Team (Late st Contact Info) Description 02/21/2024 9:45 EDT Office Visit [facility] Adult Primary Care - [address] [phone] Carrington Calderon MD [address] [place] [phone] 02/27/2024 8:30 EDT Telemedicine [facility] Sleep Program - [address] [phone] Dwight Colbert [address] [place] [address] 02/29/2024 10:30 EDT [facility] Radiology Nuclear Medicine and PET - [address] [address] 02/29/2024 14:30 EDT [facility] Radiology Nuclear Medicine and PET - [address] 937111 03/01/2024 8:00 EDT [facility] Radiology Nuclear Medicine and PET - [address] [phone] 03/01/2024 9:30 EDT Appointment [facility] Radiology Nuclear Medicine and PET [address] 588181 documented as of this encounter Visit Diagnoses Diagnosis Osteomyelitis of left foot, unspecified type ([facility])- Primary Type 2 diabetes mellitus with diabetic polyneuropathy, with long-term current use of insulin ([facility]) documented in this encounter
--- OUTSIDE RECORDS SUMMARY | 2024-02-06 13:37 | XMS_ITS | Encounter Summary ---
Author Organization [facility] Address [address] [place] [address] Care Team Providers Care Adult High School Instructor Name Role Phone Unavailable Primary Care [...] [facility] Adult [facility] - [address] 123501 Carrington Calderon MD [address] [phone] 02/27/2024 8:30 EDT Telemedicine [facility] Sleep Program - [address] 452551 Dwight Colbert [address] [place] [address] 564221 02/29/2024 10:30 EDT Appointment [facility] Radiology Nuclear Medicine and PET - [address] 150991 02/29/2024 14:30 EDT Appointment [facility] Radiology Nuclear Medicine and PET - [address] [phone] 03/01/2024 8:00 EDT Appointment [facility] Radiology Nuclear Medicine and PET - [facility] [address] [place], [place] [phone] 03/01/2024 9:30 EDT Appointment [facility] Radiology Nuclear Medicine and PET - [address] [phone] documented as of this encounter Visit Diagnoses Not on filedocumented in this encounter
--- OUTSIDE RECORDS SUMMARY | 2024-02-06 13:37 | XMS_ITS | Encounter Summary ---
Author Organization [facility] Address [address] [place] [address] Care Team Providers Care Semiconductor Engineer Name Role Phone Unavailable Primary Care [...] Office Visit [facility] Adult Primary Care - [address] 134541 Carrington Calderon MD [address] [address] 02/27/2024 8:30 EDT Telemedicine [facility] Sleep Program - [address] 012301 Dwight Colbert [address] [place] [address] [phone] 02/29/2024 10:30 EDT Appointment [facility] Radiology Nuclear Medicine and PET - [address] 221561 02/29/2024 14:30 EDT Appointment [facility] Radiology Nuclear Medicine and PET - [address] [phone] 03/01/2024 8:00 EDT Appointment [facility] Radiology Nuclear Medicine and PET - [facility] [address] [place], [place] [phone] 03/01/2024 9:30 EDT Appointment [facility] Radiology Nuclear Medicine and PET - [address] [phone] documented as of this encounter Visit Diagnoses Not on filedocumented in this encounter
--- OUTSIDE RECORDS SUMMARY | 2024-02-06 13:37 | XMS_ITS | Encounter Summary ---
Author Organization [facility] Address [address] [place] [address] Care Team Providers Care Chemistry Teacher Name Role Phone Unavailable Primary Care Provider Unavailabl e Reason for Referral * BRUSHING OPERATOR (Routine) - Specialty Report Received Specialty Diagnoses / Procedures Referred By Contac t Referred To Contact Diagnoses of unknown anatomic location Procedures US OB FIRST TRIMESTER (LESS THAN 14 WEEKS) TRANSVAGINAL Charu Flynn MD [address] [place] [address] [address] [place] [address] Referral ID Status Reason Start Date Expiration Date V isits Requested Visits Authorized [id number] Specialty Report Received 06/20/2020 1 1 Reason for Visit * Reason Onset Date Comments Follow-up 06/20/2020 Encounter Details Date Type Department Care Team (Late st Contact Info) Description 06/20/2020 Telephone [facility] Women's Services [address] [address] Susana Tomlinson RN Follow-up Social [...] Encounter - Susana Tomlinson RN - 06/20/2020 8978 EST Spoke Stella: advised plan per MD [...] call us with any concerns or questions. WEIGHT ANALYST nurse line [phone], or after hours MD line [phone]. documented in this encounter Plan of Treatment Upcoming Encounters Date Type Department Care Team (Late st Contact Info) Description 02/21/2024 9:45 EDT Office Visit [facility] Adult Primary Care - [address] [address]32[address] Carrington Calderon MD [address] [phone] 02/27/2024 8:30 EDT Telemedicine [facility] Sleep Program - [address] 341531 Dwight Colbert [address] [place] [address] [phone] 02/29/2024 10:30 EDT Appointment [facility] Radiology Nuclear Medicine and PET - [address] 714961 02/29/2024 14:30 EDT Appointment [facility] Radiology Nuclear Medicine and PET - [address] 304701 03/01/2024 8:00 EDT Appointment [facility] Radiology Nuclear Medicine and PET [address] 814577 [phone] 03/01/2024 9:30 EDT Appointment [facility] Radiology Nuclear Medicine and PET - [address] [address] documented as of this encounter Results * [...] 8. View: Sufficient. Impression OB Transvaginal - 86796. 1. of unknown location with findings that [...] 8. View: Sufficient. Impression OB Transvaginal - 76134. 1. of unknown location with findings that [...] DATE OF SERVICE: 06/25/2020 Charu Flynn MD [facility] OB ORDERA BLES documented in this encounter Visit Diagnoses Diagnosis of unknown anatomic location- Primary state, incidental of unknown anatomic location state, incidental documented in this encounter
--- OUTSIDE RECORDS SUMMARY | 2024-02-06 13:37 | XMS_ITS | Encounter Summary ---
Author Organization [facility] Address [address] [place] [address] Care Team Providers Care Conduit Mechanic Name Role Phone Unavailable Primary Care Provider Unavailabl e Reason for Visit * Reason Comments Pre-op Exam toe Encounter Details Date Type Department Care Team (Latest Contact Info) Description 06/13/2020 15:30 EST Office Visit [facility] Adult Primary Care - [address] [address] Teodoro Alejandro PA-C [address] [place] [address] [address] [place] [address] Osteomyelitis of great toe of [...] last A1c was 9.1. According to her web application developer, patient is instructed to take 32 units [...] years ago ??? Depression ??? Diabetes ([facility]) A1c 10.3 on 11/28/2019 - poorly controlled [...] 27 mL 3 ??? 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 History of CAD (history of MA or a positive ETT, current ischemic chest [...] [facility] Adult Primary Care - [address] [phone] Carrington Calderon MD [address] [phone] 02/27/2024 8:30 EDT Telemedicine [facility] Sleep Program - [address] [phone] Dwight Colbert [address] [place] [address] [phone] 02/29/2024 10:30 EDT Appointment [facility] Radiology Nuclear Medicine and PET - [address] [phone] 02/29/2024 14:30 EDT Appointment [facility] Radiology Nuclear Medicine and PET - [address] [phone] 03/01/2024 8:00 EDT Appointment [facility] Radiology Nuclear Medicine and PET - [address] [phone] 03/01/2024 9:30 EDT Appointment [facility] Radiology Nuclear Medicine and PET - [address] [phone] documented as of this encounter Procedures Procedure Name Priority Date/Time Associated Diagnosis Comments ECG REPORT - SCANNED 06/13/2020 15:53 EST EKG 12-LEAD Routine 06/13/2020 15:41 EST Pre-op examination Osteomyelitis of great toe of left foot (HCC-CMS) documented in this encounter Results * ECG REPORT - SCANNED (06/13/2020 15:53 EST) 06/13/2020 15:5 3 EST Scan 2 Food Scientist PROCEDURE/MINOR BRAULIO GICAL ORDERABLES * EKG 12-LEAD (06/13/2020 15:41 EST) 06/13/2020 15:4 1 EST Narrative [facility] EKG - 06/13/2020 15:48 EST ? PC Site ? Test Date: ?2020-06-13 Pat Name: ? CRISTY LUO ?Department: ?? [facility] ? Room: ? Gender: ? Female ? Environmental Law Professor: ?? [id number] : ?1985 ? Requested By: HUBERT Forman Order Number: [id number] ? Reading : ?? TEODORO ALEJANDRO PA-C ? Measurements Intervals ?[place] ? Rate: ? 94 ? P: ?59 CT: ? 156 ?QRS: ?34 QRSD: ? 89 [...] Date: 2020-06-13 Pat Name: CRISTY LUO [facility]: Gender: Female Environmental Law Professor: [id number] : 1985 Requested By: HUBERT Forman Order Number: [id number] Reading MD: TEODORO ALEJANDRO PA-C Measurements Intervals [place] Rate: 94 P: 59 CT: 156 QRS: 34 QRSD: 89 T: 13 QT: 335 QTc: 420 Interpretive Statements SINUS RHYTHM Automated Interpretation. Provider Interpretation to follow. Compared to ECG 06/18/2019 08:28:09 No significant changes I reviewed the tracing and have either agreed or edited the findings inthis report. Electronically Signed On 06-13-2020 15:48:18 EST by TEODORO SPENCE Teodoro Alejandro PA-C CARDIAC ECG ORDERABLES [facility] EKG documented in this encounter Visit Diagnoses Diagnosis Osteomyelitis of great toe of left foot (HCC-CMS)- Primary Pre-op examination Preoperative examination, unspecified documented in this encounter
--- OUTSIDE RECORDS SUMMARY | 2024-02-06 13:37 | XMS_ITS | Encounter Summary ---
Author Organization [facility] Address [address] [place] [address] Care Team Providers Care Skiver Machine Operator Name Role Phone Unavailable Primary Care Provider Unavailabl e Reason for Referral * TOOL CHECKER (Routine) - Specialty Report Received Specialty Diagnoses / Procedures [facility] Referred To Contact Diagnoses of unknown anatomic location Procedures US OB FIRST TRIMESTER (LESS THAN 14 WEEKS) TRANSVAGINAL David Martínez MD [address] [place] [phone] Referral ID Status Reason Start Date Expiration Date V isits Requested Visits Authorized [id number] Specialty Report Received 06/19/2020 1 1 Reason for Visit * Reason Onset Date Comments 06/18/2020 Encounter Details Date Type Department Care Team (Late st Contact Info) Description 06/18/2020 Telephone [facility] Women's Services - [address] [address] Nohemy Sales MD [address] [place] [phone] Social History Tobacco Use Types Packs/Day [...] Tuesday - heavier on Tuesday and Tuesday, 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 Almonte - ideally should be STATE EDITOR provider managing at this time. Dr. Martínez [...] she is able to come down to [facility] lab for this lab draw and understands plan. She had no further questions and verbalized understanding of plan. Will follow up when [facility] comes back. * Telephone Encounter - Elza Nieves - 06/18/2020 0821 EST Have you been seen here before for OB care? Yes If yes, who did you see (Refer to [place] if can???t remember)? [facility]. Reason for Call as described [...] for us to reach you back at? [phone] What time of day is the best [...] [facility] - [address] [phone] Carrington Calderon MD 1 [facility] 1 [place] [phone] 02/27/2024 8:30 EDT Telemedicine [facility] Sleep Program - [address] [phone] Dwight Colbert [address] [place], [place] [phone] 02/29/2024 10:30 EDT Appointment [facility] Radiology Nuclear Medicine and PET [address] [phone] 02/29/2024 14:30 EDT Appointment [facility] Radiology Nuclear Medicine and PET [address] [phone] 03/01/2024 8:00 EDT Appointment [facility] Radiology Nuclear Medicine and PET [address] [phone] 03/01/2024 9:30 EDT Appointment [facility] Radiology Nuclear Medicine and PET [address] [phone] documented as of this encounter Results * (ABNORMAL) QUANT BETA HCG, (06/21/2020 9:14 EST) [facility] Beta HCG Quant, 152(H) <5 mIU/ml 06/21/2020 11:01 EST [facility] Comment: NOTE: : [...] Martínez MD CHEMISTRY & BLOOD GAS ORDERABLES [facility] [address] [place] [address] * US OB FIRST TRIMESTER (LESS THAN [...] Sufficient. Impression 1st Trimester OB scan ,transvaginal +[id number] There is no visualized gestational sac either [...] The adnexa appear normal. Follow-up Per the STATE EDITOR service. Comment ========= Results discussed w/patient. DATE [...] Sufficient. Impression 1st Trimester OB scan ,transvaginal +[id number] There is no visualized gestational sac either [...] The adnexa appear normal. Follow-up Per the STATE EDITOR service. Comment ========= Results discussed w/patient. DATE [...] Sufficient. Impression 1st Trimester OB scan ,transvaginal +[id number] There is no visualized gestational sac either [...] The adnexa appear normal. Follow-up Per the STATE EDITOR service. Comment ========= Results discussed w/patient. DATE OF SERVICE: 06/20/2020 David Martínez MD IMG US OB ORDERAB LES * (ABNORMAL) QUANT BETA HCG, (06/19/2020 13:07 EST) Beta HCG Quant, 108(H) <5 mIU/ml 06/19/2020 14:38 EST [facility] Comment: NOTE: : [...] Martínez MD CHEMISTRY & BLOOD GAS ORDERABLES [facility] [address] [place] [address] documented in this encounter Visit Diagnoses Diagnosis of unknown anatomic location- Primary state, incidental of unknown anatomic location state, incidental documented in this encounter
--- OUTSIDE RECORDS SUMMARY | 2024-02-06 13:37 | XMS_ITS | Encounter Summary ---
Author Organization [facility] Address [address] [place] [address] Care Team Providers Care Fashion Buyer Name Role Phone Unavailable Primary Care [...] [facility] Adult Primary Care - [address] [phone] Carrington Calderon MD [address] [phone] 02/27/2024 8:30 EDT Telemedicine [facility] Sleep Program - [address] [phone] Dwight Colbert [address] [place] [phone] 02/29/2024 10:30 EDT Appointment [facility] Radiology Nuclear Medicine and PET - [address] [id number] 02/29/2024 14:30 EDT Appointment [facility] Radiology Nuclear Medicine and PET - [address] [phone] 03/01/2024 8:00 EDT Appointment [facility] Radiology Nuclear Medicine and PET - [address] [address] 03/01/2024 9:30 EDT Appointment [facility] Radiology Nuclear Medicine and PET - [address] [phone] documented as of this encounter Visit Diagnoses Not on filedocumented in this encounter
--- OUTSIDE RECORDS SUMMARY | 2024-02-06 13:37 | XMS_ITS | Encounter Summary ---
Author Organization [facility] Address [address] [place] [address] Care Team Providers Care Cherry Picker Operator Name Role Phone Unavailable Primary Care [...] [facility] Adult Primary Care - [address] [phone] Carrington Calderon MD [address] [phone] 02/27/2024 8:30 EDT Telemedicine [facility] Sleep Program - [address] [phone] Dwight Colbert [address] [place] [phone] 02/29/2024 10:30 EDT Appointment [facility] Radiology Nuclear Medicine and PET - [address] [address] 02/29/2024 14:30 EDT Appointment [facility] Radiology Nuclear Medicine and PET - [address] [phone] 03/01/2024 8:00 EDT Appointment [facility] Radiology Nuclear Medicine and PET - [facility] [address] [place], [place] [phone] 03/01/2024 9:30 EDT Appointment [facility] Radiology Nuclear Medicine and PET - [address] [phone] documented as of this encounter Visit Diagnoses Not on filedocumented in this encounter
--- OUTSIDE RECORDS SUMMARY | 2024-02-06 13:37 | XMS_ITS | Encounter Summary ---
Author Organization [facility] Address [address] [place] [address] Care Team Providers Care Rf Engineer Name Role Phone Unavailable Primary Care Provider Unavailabl e Reason for Referral * PLANER FEEDER (Routine) - Specialty Report Received Specialty Diagnoses / Procedures Referred By Annetteac t Referred To Contact Diagnoses of unknown anatomic location Procedures US OB FIRST TRIMESTER (LESS THAN 14 WEEKS) TRANSVAGINAL Charu Flynn MD [address] [place] [phone] Referral ID Status Reason Start Date Expiration Date V isits Requested Visits Authorized [id number] Specialty Report Received 06/20/2020 1 1 Reason for Visit * PLANER FEEDER (Routine) - Specialty Report Received Specialty Diagnoses / Procedures Referred By Contac t Referred To Contact Diagnoses of unknown anatomic location Procedures US OB FIRST TRIMESTER (LESS THAN 14 WEEKS) TRANSVAGINAL Charu Flynn MD [address] [phone] Referral ID Status Reason Start Date Expiration Date V isits Requested Visits Authorized [id number] Specialty Report Received 06/20/2020 1 1 Encounter Details Date Type Department Care Team (Latest Contact Info) Description 06/25/2020 10:51 EST - 06/25/2020 23:59 EST Hospital Encounter [facility] Women's Services - [address] [address] of unknown anatomic location Discharge Disposition: Home [...] [facility] Adult Primary Care [facility] 1 [place], [place] [address] Carrington Calderon MD [address] [place] [address] 1 [place] [address] 02/27/2024 8:30 EDT Telemedicine [facility] Sleep Program - [address] [address] ColbertDwight garner [address] [place] [address] 02/29/2024 10:[address] [facility] Radiology Nuclear Medicine and PET [address] 396[address] 02/29/2024 14:[address] [facility] Radiology Nuclear Medicine and PET [address] 176941 03/01/2024 8:[address] [facility] Radiology Nuclear Medicine and PET [address] [address] 03/01/2024 9:[address] [facility] Radiology Nuclear Medicine and PET [address] [phone] documented as of this encounter Procedures Procedure [...] 8. View: Sufficient. Impression OB Transvaginal - 10240. 1. of unknown location with findings that [...] 8. View: Sufficient. Impression OB Transvaginal - 13763. 1. of unknown location with findings that [...]
--- OUTSIDE RECORDS SUMMARY | 2024-02-06 13:37 | XMS_ITS | Encounter Summary ---
Author Organization [facility] Address [address] [place] [address] Care Team Providers Care Special Collections Librarian Name Role Phone Unavailable Primary Care Provider Unavailabl e Reason for Visit * Auth/Cert Specialty Diagnoses / Procedures Referred By Kit t Referred To Contact Diagnoses Encounter for sterilization Procedures MA LAP,RMV ADNEXAL STRUCTURE Laparoscopic Bilateral Salpingectomy Referral ID Status Reason Start Date Expiration Date Visits Re quested Visits Authorized [id number] 1 1 Encounter Details Date Type Department Care Team (Late st Contact Info) Description 06/16/2020 15:25 EST - 06/16/2020 16:40 EST Surgery [facility] [place] [address] [place] [address] Elza Navarro DPM [address] [place] [phone] Left great toe amputation [92141 (CPT??)] Surgery Details Date/Time Status Location OR Service Patient Class Case Cl ass Case Type Trauma Case? 06/16/20 1525 Posted [facility] OR [facility] Outpatient Surgery H - [...] can be contacted during weekday officehours at [phone]. If there is an emergency, Dr. Navarro may also be contacted via pager by calling the [facility] at [phone] or [phone] (pager # [phone]). documented in this encounter Medications at Time [...] last A1c was 9.1. 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 History of CAD (history of [place] or a positive ETT, current ischemic chest [...] Notes * Mallorie Marcial RN - 06/16/2020 7174 EST The Patient's Pre-Surgical/ Procedure test result [...] SERVICE DATE: 06/16/2020 SURGEON: Elza Navarro DPM CARE COMPANION: None. PREOPERATIVE DIAGNOSIS: Left great toe osteomyelitis. [...] retained. Elza Navarro DPM / DC Confirmation: [id number] Dictation ID: [id number] cc: documented in this encounter Miscellaneous Notes * Brief Op Note - Elza Navarro DPM - 06/16/2020 1644 EST Date: 06/16/2020 Location: [facility] OR Name: Cristy Luo, : 1985, Diagnosis Pre-op Diagnosis * Osteomyelitis of toe of left foot ([facility]) [M86.9] * Type 2 diabetes mellitus with diabetic polyneuropathy, with long-term current use of insulin ([facility]) [E11.42, Z79.4] Post-op Diagnosis * Osteomyelitis of toe of left foot ([facility]) [M86.9] * Type 2 diabetes mellitus with diabetic polyneuropathy, with long-term current use of insulin ([facility]) [E11.42, Z79.4] Procedures Left great toe amputation 58307 - MA AMPUTATION TOE,MT-P JT Surgeons * Elza Navarro DPM - Primary Procedure Summary Anesthesia: Monitor Anesthesia Care ASA: ASA status not filed in the log. Estimated Blood Loss: < 5 cc Total IV Fluids: per anesthesia Staff: Load Dispatcher Local: Cherie Mayes RN Scrub Person: Arturo Pelletier Patient Weather Analyst: Carlita Charles Indications: Stella Luo is [...] protocol. Patient will call GUSTAVO Collado (Diabetes RECREATIONAL FACILITIES MOTEL MANAGER) for any further questions regarding diabetes management pre op NAOMI NAVA RN * PAT Note - Naomi Nava RN - 06/13/2020 0994 EST COVID 19 Screening Perioperative at time [...] instruct them to call us back at [phone] to report symptoms (If patient is in [...] [facility] Adult Primary Care - [address] [phone] Carrington Calderon MD 1 [facility] 1 [place] [phone] 02/27/2024 8:30 EDT Telemedicine [facility] Sleep Program - [address] [phone] Dwight Colbert [address] [place] [phone] 02/29/2024 10:30 EDT Appointment [facility] Radiology Nuclear Medicine and PET [address] [address] 02/29/2024 14:30 EDT Appointment [facility] Radiology Nuclear Medicine and [address] [address] 03/01/2024 8:00 EDT Appointment [facility] Radiology Nuclear Medicine and PET [address] [address] 03/01/2024 9:30 EDT Appointment [facility] Radiology Nuclear [facility] and [address] [address] Pending Results Name Type Priority Associated Diagnoses [...] EST Osteomyelitis of toe of left foot ([facility]) Type 2 diabetes mellitus with diabetic polyneuropathy, with long-term current use of insulin ([facility]) Special Needs Foot Set, Patient already has surgical shoe POCT GLUCOSE, INTERFACED Routine 06/16/2020 14:40 EST POCT CSN BARCODE URINE PREG TEST STAT 06/16/2020 14:22 EST documented in this encounter Results * PATHOLOGY - SCANNED (06/20/2020 11:10 EST) 06/20/2020 11:1 0 EST Scan 2 Trolley Worker LAB INFO SERVICE AN D SUPPORT & PHONE RESULT * SURGICAL PATHOLOGY (06/16/2020 16:21 [facility]) Final Diagnosis A. TOE, LEFT GREAT, AMPUTATION: - Acute osteomyelitis. - Disarticulated joint with no gross evidence of acute osteomyelitis. - Skin with ulceration and acute cellulitis. 06/19/2020 15:19 [facility] Attestation There was significant resident/fellow involvement in the diagnostic evaluation of this case. By the signature below, the attending physician certifies that they have personally conducted a gross and/or microscopic examination of the described specimens and rendered or confirmed the above diagnosis. 06/19/2020 15:19 [facility] at 1519 Clinical History Left great toe osteomyelitis 06/19/2020 15:19 [facility] Gross Description A. [...] unguis is pale yellow firm and unremarkable. Labor Representative sections are submitted as follows: BLOCK SHIELDS A1-A2- underlying bone, acid decalcification A3- defect to skin and soft tissue margins EUNICE GUAJARDO(ASCP) 06/17/2020 11:11 06/19/2020 15:19 [facility] Resident/Cash w: Emory Nazario DO 06/19/2020 15:19 [facility] Performing Lab [facility] 15:19 [facility] Scanned Images 06/19/2020 15:19 [facility] Tissue AMPUTATION / Unknown 06/16/2020 16:21 EST 06/16/2020 21:33 EST Comment:Left great toe osteo myelitis Elza Navarro DPM PATHOLOGY ORDERABLES [facility] [address] [place] [address] * (ABNORMAL) ANAEROBE CULTURE/SMEAR(INC. AEROBES), OTHER (06/16/2020 16:21 EST) Organism ID Moderate Streptococcus agalactiae(A) 1 8:41 [facility] Comment:Penicillin and ampic illin are drugs of choice for treatment of beta hemolytic streptococcal infections. Organism ID Few Staphylococcus aureus(A) VITEK SUSCEPTIBILITY 1 8:41 [facility] Comment:Susceptible to nafci llin, cephalosporins and other beta lactam antibiotics (mecA gene product absent). Organism ID Few Gram-Positive Rods Aerobic (Group) 1 8:41 [facility] Organism ID Rare Prevotella bivia(A) 1 8:41 [facility] Organism ID Few Anaerococcus tetradius(A) 1 8:41 [facility] Smear Many Neutrophils Present 1 8:41 [facility] Smear Moderate Gram Positive Cocci 1 8:41 [facility] Bone ENTIRE TOE [...] - GENER AL ORDERABLES Performing Organization Address [facility] Co de Phone Number [facility] [address] [place] [address] * (ABNORMAL) POCT GLUCOSE, INTERFACED (06/16/2020 14:40 EST) Glucose, POC 166(H) 70 - 100 mg/dL 06/16/2020 14:43 EST [facility] silk crepe machine operator ID [id number] 06/16/2020 14:43 EST [facility] HN LAB POC COMMENT (GLUCOSE) Test Performed by Nursing Services 06/16/2020 14:43 EST [facility] Blood CAPILLARY BLOOD / Unknown 06/16/2020 14:40 EST 06/16/2020 14:43 EST Elza Navarro DPM POINT OF CARE TEST O RDERABLES Performing Organization Address [facility] Co de Phone Number [facility] [address] [place] [address] * POCT CSN BARCODE URINE PREG TEST (06/16/2020 14:22 EST) Hold Hold 06/16/2020 16:30 EST [facility] Urine URINE SPECIMEN COLLECTION, CLEAN CATCH / Unknown 06/16/2020 14:22 EST 06/16/2020 14:22 EST Tiff Salcedo MD LAB INFO SERVICE AND SUPPORT & PHONE RESULT Performing Organization Address City/[facility] Co de Phone Number [facility] [address] [place] [address] documented in this encounter Visit Diagnoses Diagnosis Osteomyelitis of left foot, unspecified type (HCC-CMS) Osteomyelitis of toe of left foot ([facility]) Unspecified osteomyelitis, ankle and foot Type 2 diabetes mellitus with diabetic polyneuropathy, with long-term current use of insulin ([facility]) Osteomyelitis of toe of left foot ([facility]) Unspecified osteomyelitis, ankle and foot Type 2 diabetes mellitus with diabetic polyneuropathy, with long-term current use of insulin ([facility]) documented in this encounter Admitting Diagnoses Diagnosis Osteomyelitis of toe of left foot ([facility]) Unspecified osteomyelitis, ankle and foot Type 2 diabetes mellitus with diabetic polyneuropathy, with long-term current use of insulin ([facility]) documented in this encounter Administered [...]
--- OUTSIDE RECORDS SUMMARY | 2024-02-06 13:37 | XMS_ITS | Encounter Summary ---
Author Organization [facility] Address [address] [place] [address] Care Team Providers Care Toll Relief Operator Name Role Phone Unavailable Primary Care Provider Unavailabl e Encounter Details Date Type Department Care Team (Late st Contact Info) Description 06/19/2020 13:00 EST Phlebotomy Only [facility] ED Center 2 Phlebotomy [address] [place] [address] Drop Wirer, Acc Phlebotomy of unknown anatomic location (Primary [...] [facility] Adult Primary Care - [address] [phone] Carrington Calderon MD [address] [phone] 02/27/2024 8:30 EDT Telemedicine [facility] Sleep Program - [address] [phone] Dwight Colbert [address] [place] [phone] 02/29/2024 10:30 EDT Appointment [facility] Radiology Nuclear Medicine and PET [address] [phone] 02/29/2024 14:30 EDT Appointment [facility] Radiology Nuclear Medicine and PET [address] 284771 03/01/2024 8:00 EDT Appointment [facility] Radiology Nuclear Medicine and PET [address] [phone] 03/01/2024 9:30 EDT Appointment [facility] Radiology Nuclear Medicine and PET [address] 344291 documented as of this encounter Procedures Procedure Name Priority Date/Time Associated Diagnosis Comments QUANT BETA HCG, Routine 06/19/2020 13:07 EST of unknown anatomic location documented in this encounter Results * (ABNORMAL) QUANT BETA HCG, (06/19/2020 13:07 EST) Beta HCG Quant, 108(H) <5 mIU/ml 06/19/2020 14:38 EST [facility] Comment: NOTE: : Negative: [...] Martínez MD CHEMISTRY & BLOOD GAS ORDERABLES [facility] [address] [place] [address] documented in this encounter Visit Diagnoses Diagnosis of unknown anatomic location- Primary state, incidental documented in this encounter
--- OUTSIDE RECORDS SUMMARY | 2024-02-06 13:37 | XMS_ITS | Encounter Summary ---
Author Organization [facility] Address [address] [place] [address] Care Team Providers Care Procurement Intern Name Role Phone Unavailable Primary Care Provider Unavailabl e Reason for Visit * Reason Onset Date Comments Other 06/13/2020 Encounter Details Date Type Department Care Team (Late st Contact Info) Description 06/13/2020 Telephone [facility] Foot & Ankle Program - [address] [address] Elza Navarro DP [address] [place] [address] Other Social History Tobacco Use [...] told to arrive @1:30 on 06.16.20 @ [facility], nothing to eat or drink after [...] [facility] Adult Primary Care - [address] 188541 Carrington Calderon MD [address] [facility] 1 [place] [phone] 02/27/2024 8:30 EDT Telemedicine [facility] Sleep Program - [address] [phone] Dwight Colbert [address] [place] [phone] 02/29/2024 10:30 EDT Appointment [facility] Radiology Nuclear Medicine and PET - [address] [phone] 02/29/2024 14:30 EDT Appointment [facility] Radiology Nuclear Medicine and PET [address] [phone] 03/01/2024 8:00 EDT Appointment [facility] Radiology Nuclear Medicine and PET [address] [phone] 03/01/2024 9:30 EDT Appointment [facility] Radiology Nuclear Medicine and PET [address] [phone] documented as of this encounter Visit Diagnoses Not on filedocumented in this encounter
--- OUTSIDE RECORDS SUMMARY | 2024-02-06 13:38 | XMS_ITS | Encounter Summary ---
Author Organization [facility] Address [address] [place] [address] Care Team Providers Care Manager Transport Name Role Phone Unavailable Primary Care Provider [...] [facility] - [address] [phone] Carrington Calderon MD [address] [phone] 02/27/2024 8:30 EDT Telemedicine [facility] Sleep Program - [address] [address] Dwight Colbert [address] [place] [address] [phone] 02/29/2024 10:30 EDT Appointment [facility] Radiology Nuclear Medicine and PET - [address] 956351 02/29/2024 14:30 EDT Appointment [facility] Radiology Nuclear Medicine and PET - [address] [id number] 03/01/2024 8:00 EDT Appointment [facility] Radiology Nuclear Medicine and PET - [address] [id number] 03/01/2024 9:30 EDT Appointment [facility] Radiology Nuclear Medicine and PET - [address] [address] documented as of this encounter Visit Diagnoses Not on filedocumented in this encounter
--- OUTSIDE RECORDS SUMMARY | 2024-02-06 13:38 | XMS_ITS | Encounter Summary ---
Author Organization [facility] Address [address] [place] [address] Care Team Providers Care Site Auditor Name Role Phone Unavailable Primary Care Provider Unavailabl e Reason for Visit * Reason Onset Date Comments Home Health 03/25/2020 Encounter Details Date Type Department Care Team (Late st Contact Info) Description 03/25/2020 Telephone [facility] Adult Primary Care - [address] [phone] Tonja Alejandro PA-C [facility] [address] [place] [phone] Home Health Social History Tobacco Use [...] - 03/25/2020 1606 EDT Kylah called from [facility] stating Patients Heart Rate has been elevated at 100-120 per min documented in this encounter Plan of Treatment Upcoming Encounters Date Type Department Care Team (Late st Contact Info) Description 02/21/2024 9:45 EDT Office Visit [facility] Adult Primary Care - [address] 847871 Carrington Calderon MD [address] [phone] 02/27/2024 8:30 EDT Telemedicine [facility] Sleep Program - [address] [address] Dwight Colbert [address] [place] [address] 02/29/2024 10:30 EDT [facility]ointment [facility] Radiology Nuclear Medicine and PET - [address] [address] 02/29/2024 14:30 EDT [facility]ointment [facility] Radiology Nuclear Medicine and PET - [address] [address] 03/01/2024 8:00 EDT Appointment [facility] Radiology Nuclear Medicine and PET - [address] [phone] 03/01/2024 9:30 EDT Appointment [facility] Radiology Nuclear Medicine and PET - [address] 857121 documented as of this encounter Visit Diagnoses Not on filedocumented in this encounter
--- OUTSIDE RECORDS SUMMARY | 2024-02-06 13:38 | XMS_ITS | Encounter Summary ---
Author Organization [facility] Address [address] [place] [address] Care Team Providers Care Senior Sql Server Dba Name Role Phone Unavailable Primary Care Provider Unavailabl e Reason for Visit * Reason Comments Follow-up Encounter Details Date Type Department Care Team (Late st Contact Info) Description 04/18/2020 10:30 EST Office Visit [facility] Foot & Ankle Program - [address] [address] Elza Navarro DPM [address] [place] [phone] Ulcer of great toe, left, with necrosis of bone ([facility]) (Primary Dx); Type 2 diabetes mellitus with diabetic polyneuropathy, with long-term current use of insulin ([facility]) Social History Tobacco Use Types [...] Navarro, DPM - 04/18/2020 0000 EST [facility] FOOT AND ANKLE PROGRAM PROGRESS / [...] Elza Navarro DPM / SWAPNIL Dictation ID: [id number] cc: documented in this encounter Plan of Treatment Upcoming Encounters Date Type Department Care Team (Late st Contact Info) Description 02/21/2024 9:45 EDT Office Visit [facility] Adult Primary Care [address] [address] Carrington Calderon MD 1 [facility] Level 1 [place] [phone] 02/27/2024 8:30 EDT Telemedicine [facility] Sleep Program - [address] [place] [address] [address] Col[address] [place] [address] 02/29/2024 10:30 EDT [facility] Radiology Nuclear Medicine and PET - [address] [address] 02/29/2024 14:30 EDT Appointment [facility] Radiology Nuclear Medicine and PET - [address] 798391 03/01/2024 8:00 EDT Appointment [facility] Radiology Nuclear Medicine and PET - [address] 937011 03/01/2024 9:30 EDT Appointment [facility] Radiology Nuclear Medicine and PET - [address] [address] documented as of this encounter Visit Diagnoses Diagnosis Ulcer of great toe, left, with necrosis of bone ([facility])- Primary Type 2 diabetes mellitus with diabetic polyneuropathy, with long-term current use of insulin ([facility]) documented in this encounter
--- OUTSIDE RECORDS SUMMARY | 2024-02-06 13:38 | XMS_ITS | Encounter Summary ---
Author Organization [facility] Address [address] [place] [address] Care Team Providers Care Coating Mixer Tender Name Role Phone Carrington Calderon MD Primary Care Provi anders Abigail Díaz Unavailable Carmelo Hendrickson Unavailable Unavailable Abigail Díaz Unavailable [phone] Encounter Details Date Type Department Care Team (Late st Contact Info) Description 06/23/2020 Lab Requisition [facility] Pathology & Laboratory Medicine - [address] [address] Mushtaq Light, DO 111 [facility], Level 5 [place] [phone] Other chronic hematogenous osteomyelitis, left ankle and [...] [facility] Adult Primary Care - [address] 388161 Carrington Caldreon MD 1 [facility] Level 1 [place] [phone] 02/27/2024 8:30 EDT Telemedicine [facility] Sleep Program - [address] [place] [address] [address] [place] [address] 02/29/2024 10:30 EDT Appointment [facility] Radiology Nuclear Medicine and PET [address] [address] 02/29/2024 14:30 EDT Appointment [facility] Radiology Nuclear Medicine and PET - [address] [address] 03/01/2024 8:00 EDT Appointment [facility] Radiology Nuclear Medicine and PET [address] [address] 03/01/2024 9:30 EDT Appointment [facility] Radiology Nuclear Medicine and PET [address] 194501 documented as of this encounter Procedures Procedure [...] EST) % Neutrophils 48.0 % 07/03/2020 12:50 [facility] % Bands 1.0 % 07/03/2020 12:50 [facility] % Lymphocytes 40.0 % 07/03/2020 12:50 [facility] % Atypical Lymphocytes 4.0 % 07/03/2020 12:50 [facility] % Monocytes 5.0 % 07/03/2020 12:50 [facility] % Eosinophils 1.0 % 07/03/2020 12:50 [facility] % Basophils 1.0 % 07/03/2020 12:50 [facility] Absolute Neutrophils 6.40 2.20 - 8.85 K/cmm 07/03/2020 12:50 [facility] Absolute Bands 0.13 K/cmm 07/03/2020 12:50 [facility] Absolute Lymphocytes 5.33(H) 1.09 - 3.30 K/cmm 07/03/2020 12:50 [facility] Absolute Atypical Lymphocytes 0.53 K/cmm 07/03/2020 12:50 [facility] Absolute Monocytes 0.67 0.10 - 0.80 K/cmm 07/03/2020 12:50 [facility] Absolute Eosinophils 0.13 0.03 - 0.61 K/cmm 07/03/2020 12:50 [facility] ABS Basophils 0.13(H) 0.01 - 0.11 K/cmm 07/03/2020 12:50 [facility] Blood VENOUS BLOOD / Unknown 04/15/2020 11:28 EST 06/23/2020 15:27 EST Mushtaq Light DO HEMATOLOGY & PF4 OR DERABLES [facility] [address] [place] [address] * (ABNORMAL) SED. RATE:MARLYN (04/15/2020 11:28 EST) Sed Rate 25(H) 0 - 20 mm/hr 07/03/2020 12:51 [facility] Blood VENOUS BLOOD / Unknown 04/15/2020 11:28 EST 06/23/2020 15:27 EST Mushtaq Light DO HEMATOLOGY & PF4 OR DERABLES Performing Organization Address City/State/[facility] Co de Phone Number [facility] [address] [place] [address] * (ABNORMAL) COMPLETE BLOOD COUNT AND DIFFERENTIAL (04/15/2020 11:28 EST) WBC 13.33(H) 4.00 - 12.40 K/cmm 07/03/2020 12:50 [facility] RBC 4.38 3.86 - 5.04 M/cmm 07/03/2020 12:50 [facility] Hemoglobin 13.5 11.6 - 15.2 gm/dL 07/03/2020 12:50 [facility] HCT 38.6 34.9 - 44.4 % 07/03/2020 12:50 [facility] MCV 88 81 - 98 fl 07/03/2020 12:50 [facility] MCH 30.8 26.7 - 33.3 pg 07/03/2020 12:50 [facility] MCHC 35.0 32.1 - 35.9 gm/dL 07/03/2020 12:50 [facility] RDW-CV 12.5 <14.7 % 07/03/2020 12:50 [facility] RDW-SD 40.6 <50.4 fl 07/03/2020 12:50 [facility] PLT 344 141 - 377 K/cmm 07/03/2020 12:50 [facility] MPV 9.8 9.5 - 12.7 fl 07/03/2020 12:50 [facility] Type of Differential: Manual 07/03/2020 12:50 [facility] Blood VENOUS BLOOD / Unknown 04/15/2020 11:28 EST 06/23/2020 15:27 EST Mushtaq Light DO PACKAGES & DNA PROB E ORDERABLES Performing Organization Address [facility] Co de Phone Number [facility] [address] [place] [address] * (ABNORMAL) CREATININE (04/15/2020 11:28 EST) Creatinine 0.43(L) 0.52 - 1.04 mg/dL 06/30/2020 12:01 EST [facility] eGFR 132 >60 mL/min/1.7 3m2 06/30/2020 12:01 EST [facility] Comment:eGFR calculated gil curtis CKD-EPI equation for non- Americans. Multiply eGFR by 1.16 for patients. Blood VENOUS BLOOD / Unknown 04/15/2020 11:28 EST 06/23/2020 15:27 EST Mushtaq Light DO CHEMISTRY & BLOOD G ORDERABLES Performing Organization Address [facility] Co de Phone Number [facility] [address] [place] [address] * C REACTIVE PROTEIN (04/15/2020 11:28 EST) C-Reactive Protein <7.0 <10.0 mg/L 06/30/2020 12:01 EST [facility] Blood VENOUS BLOOD / Unknown 04/15/2020 11:28 EST 06/23/2020 15:27 EST Mushtaq Light DO CHEMISTRY & BLOOD G ORDERABLES Performing Organization Address [facility] Co de Phone Number [facility] [address] [place] [address] documented in this encounter Visit Diagnoses Diagnosis Other chronic hematogenous osteomyelitis, left ankle and foot ([facility]) documented in this encounter Additional Health Concerns Infection Onset Date Last Indicated Resolved Time R/O COVID-19 08/04/2020 08/04/2020 08/04/2020 11:4 0 EST documented as of this encounter Care Teams Coating Mixer Tender Relationship Specialty Start Date End Date Carrington Calderon MD 1 [facility] 1 [place] [phone] PCP - General Internal Medicine - Primary Care 12/09/20 Abigail Díaz Wallpaper Consultant 04/21/23 01/03/24 Carmelo Hendrickson Coordinator 12/01/23 Abigail Díaz Wallpaper Consultant 01/04/24 documented as of this encounter
--- OUTSIDE RECORDS SUMMARY | 2024-02-06 13:38 | XMS_ITS | Encounter Summary ---
Author Organization [facility] Address [address] [place] [address] Care Team Providers Care Hall Supervisor Name Role Phone Unavailable Primary Care [...] [facility] Adult Primary Care - [address] 340991 Carrington Calderon MD [address] [phone] 02/27/2024 8:30 EDT Telemedicine [facility] Sleep Program - [address] [address] Dwight Colbert [address] [place] [address] [phone] 02/29/2024 10:30 EDT Appointment [facility] Radiology Nuclear Medicine and PET - [address] [phone] 02/29/2024 14:30 EDT Appointment [facility] Radiology Nuclear Medicine and PET - [address] [id number] 03/01/2024 8:00 EDT Appointment [facility] Radiology Nuclear Medicine and PET - [address] 037651 03/01/2024 9:30 EDT Appointment [facility] Radiology Nuclear Medicine and PET - [address] [address] documented as of this encounter Visit Diagnoses Not on filedocumented in this encounter
--- OUTSIDE RECORDS SUMMARY | 2024-02-06 13:38 | XMS_ITS | Encounter Summary ---
Author Organization [facility] Address [address] [place] [address] Care Team Providers Care Compliance Project Manager Name Role Phone Unavailable Primary Care Provider Unavailabl e Reason for Visit * Reason Comments Diabetes Encounter Details Date Type Department Care Team (Latest Contact Info) Description 06/05/2020 14:00 EST Telemedicine [facility] Endocrinology - [facility] [address] [place], [place] [phone] Sara Zafar NP [address] [facility] [address] [place] [phone] Type 2 diabetes mellitus with left diabetic [...] APRN - 06/05/2020 1400 EST Subjective: [facility] diabetes Center F/U Note TELEMEDICINE [...] Dr. Srinivasan in 2009. 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 Recurrent loss is attributed to to poorly controlled type 2 diabetes in conjunction with tobacco dependence. She saw RECORD CENTER COORDINATOR on 11/03/2018, and was advised to get [...] siblings, knows about 2, no DM. 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 Previous [...] and send BS. Freestyle Vignesh CGM ordered. [facility]. Novolog to 8-10 units 15 minute pre- [...] [facility] Adult Primary Care - [address] [address] Carrington Calderon MD 1 [facility] 1 [place] [address] 02/27/2024 8:30 EDT Telemedicine [facility] Sleep Program - [address] [address] Dwight Colbert [address] [place] [address] 02/29/2024 10:30 EDT Appointment [facility] Radiology Nuclear Medicine and PET - [address] [address] 02/29/2024 14:30 EDT Appointment [facility] Radiology Nuclear Medicine and PET [address] 889191 03/01/2024 8:00 EDT Appointment [facility] Radiology Nuclear Medicine and PET [address] 195191 03/01/2024 9:30 EDT Appointment [facility] Radiology Nuclear Medicine and PET [address] [address] documented as of this encounter Visit Diagnoses Diagnosis 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 ([facility])- Primary Type II or unspecified [...]
--- OUTSIDE RECORDS SUMMARY | 2024-02-06 13:38 | XMS_ITS | Encounter Summary ---
Author Organization [facility] Address [address] [place] [address] Care Team Providers Care Claim Clerk Name Role Phone Unavailable Primary Care [...] [facility] Adult Primary Care - [address] [phone] Carrington Calderon MD [address] [phone] 02/27/2024 8:30 EDT Telemedicine [facility] Sleep Program - [address] 403961 Dwight Colbert [address] [place] [address] [phone] 02/29/2024 10:30 EDT Appointment [facility] Radiology Nuclear Medicine and PET - [address] [phone] 02/29/2024 14:30 EDT Appointment [facility] Radiology Nuclear Medicine and PET - [address] [phone] 03/01/2024 8:00 EDT Appointment [facility] Radiology Nuclear Medicine and PET - [address] [address] 03/01/2024 9:30 EDT Appointment [facility] Radiology Nuclear Medicine and PET - [address] [phone] documented as of this encounter Visit Diagnoses Not on filedocumented in this encounter
--- OUTSIDE RECORDS SUMMARY | 2024-02-06 13:38 | XMS_ITS | Encounter Summary ---
Author Organization [facility] Address [address] [place] [address] Care Team Providers Care Director Of Materials Name Role Phone Unavailable Primary Care Provider Unavailabl e Reason for Visit * Reason Comments Foot Problem Encounter Details Date Type Department Care Team (Latest Contact Info) Description 06/05/2020 10:[address] [facility] Foot & Ankle Program - [address] [place] [address] Elza Navarro DPM [address] [place] [phone] Osteomyelitis of toe of left foot ([facility] (Primary Dx); Type 2 diabetes mellitus with diabetic polyneuropathy, with long-term current use of insulin ([facility]) Social History Tobacco Use Types Packs/Day Years [...] with speech recognition software or keyboard data entry manager techniques. Minor irregularities or keyboarding misprints may be present documented in this encounter Plan of Treatment Upcoming Encounters Date Type Department Care Team (Late st Contact Info) Description 02/21/2024 9:[address] [facility] Adult Primary Care - [address] [phone] Carrington Calderon MD [address] [phone] 02/27/2024 8:[address] [facility] Sleep Program - [address] 501291 Dwight Colbert [address] [place] [address] [phone] 02/29/2024 10:30 EDT Appointment [facility] Radiology Nuclear Medicine and PET - [address] [id number] 02/29/2024 14:30 EDT [facility] Radiology Nuclear Medicine and PET - [address] [phone] 03/01/2024 8:00 EDT Appointment [facility] Radiology Nuclear Medicine and PET - [address] [phone] 03/01/2024 9:30 EDT Appointment [facility] Radiology Nuclear Medicine and PET - [address] [phone] documented as of this encounter Visit Diagnoses Diagnosis Osteomyelitis of toe of left foot ([facility])- Primary Unspecified osteomyelitis, ankle and foot Type 2 diabetes mellitus with diabetic polyneuropathy, with long-term current use of insulin ([facility]) documented in this encounter Orders Case Request Count Last Ordered Date First Orde red Date CASE REQUEST OPERATING ROOM 1 06/05/2020 documented in this encounter
--- OUTSIDE RECORDS SUMMARY | 2024-02-06 13:38 | XMS_ITS | Encounter Summary ---
Author Organization [facility] Address [address] [place] [address] Care Team Providers Care Entry Manager Name Role Phone Unavailable Primary Care [...] [facility] Adult Primary Care - [address] 815371 Carrington Calderon MD [address] [phone] 02/27/2024 8:30 EDT Telemedicine [facility] Sleep Program - [address] [phone] Dwight Colbert [address] [place] [address] [phone] 02/29/2024 10:30 EDT Appointment [facility] Radiology Nuclear Medicine and PET - [address] [id number] 02/29/2024 14:30 EDT Appointment [facility] Radiology Nuclear Medicine and PET - [address] [phone] 03/01/2024 8:00 EDT Appointment [facility] Radiology Nuclear Medicine and PET - [address] [address] 03/01/2024 9:30 EDT Appointment [facility] Radiology Nuclear Medicine and PET - [address] [phone] documented as of this encounter Visit Diagnoses Not on filedocumented in this encounter
--- OUTSIDE RECORDS SUMMARY | 2024-02-06 13:38 | XMS_ITS | Encounter Summary ---
Author Organization [facility] Address [address] [place] [address] Care Team Providers Care Unit Manager Name Role Phone Unavailable Primary Care Provider Unavailabl e Encounter Details Date Type Department Care Team [facility] Description 03/21/2020 Documentation Visit [facility] - [address] [place] [address] Karthikeyan Crook, RN [address] [place] [address] Social History Tobacco Use Types Packs/Day Years [...] Notes * Karthikeyan Crook, MARCELO - 03/21/2020 8216 EDT Patient: Cristy Luo is a 35 [...] CROOK RN 03/21/2020 14:10 * [place] - 03/21/2020 7589 EDT Patient: Cristy Luo is a 35 [...] [facility] Adult Primary Care - [address] 707301 Carrington Calderon MD 1 [facility] 1 [place] [address] 02/27/2024 8:30 EDT Telemedicine [facility] Sleep Program - [address] 956051 Dwight Colbert [address] [place] [address]281 02/29/2024 10:30 EDT Appointment [facility] Radiology Nuclear Medicine and PET - [address] 701061 02/29/2024 14:30 EDT Appointment [facility] Radiology Nuclear Medicine and PET - [address] [address] 03/01/2024 8:00 EDT Appointment [facility] Radiology Nuclear Medicine and PET - [address] [address] 03/01/2024 9:30 EDT Appointment [facility] Radiology Nuclear Medicine and PET - [address] [address] documented as of this encounter Visit Diagnoses Not on filedocumented in this encounter
--- OUTSIDE RECORDS SUMMARY | 2024-02-06 13:38 | XMS_ITS | Encounter Summary ---
Author Organization [facility] Address [address] [place] [address] Care Team Providers Care Instrumentation Manager Name Role Phone Unavailable Primary Care Provider Unavailabl e Reason for Visit * Reason Onset Date Comments Follow-up 05/05/2020 Encounter Details Date Type Department Care Team (Late st Contact Info) Description 05/05/2020 Telephone [facility] Infectious Disease - [address] [phone] Mushtaq Light, DO 111 [facility], Level 5 [place] [address] Follow-up Social History Tobacco Use [...] childcare. She is currently back home in [place] is clinically stable. Unfortunately her MRI showed osteomyelitis by report of the great toe. I called in a prescription for Augmentin 875 p.o. twice daily to her pharmacy in [place] and she will pick it up later [...] [facility] Adult Primary Care - [address] [phone] Carrington Calderon MD [address] [phone] 02/27/2024 8:30 EDT Telemedicine [facility] Sleep Program - [address] 206691 Dwight Colbert [address] [place] [address] [phone] 02/29/2024 10:30 EDT Appointment [facility] Radiology Nuclear Medicine and PET - [address] [phone] 02/29/2024 14:30 EDT Appointment [facility] Radiology Nuclear Medicine and PET [address] [phone] 03/01/2024 8:00 EDT Appointment [facility] Radiology Nuclear Medicine and PET - [address] [phone] 03/01/2024 9:30 EDT Appointment [facility] Radiology Nuclear Medicine and PET [address] [phone] documented as of this encounter Visit Diagnoses Not on filedocumented in this encounter
--- OUTSIDE RECORDS SUMMARY | 2024-02-06 13:38 | XMS_ITS | Encounter Summary ---
Author Organization [facility] Address [address] [place] [address] Care Team Providers Care Stock Holder Name Role Phone Unavailable Primary Care Provider Unavailabl e Reason for Visit * Reason Comments Foot Problem Encounter Details Date Type Department Care Team (Late st Contact Info) Description 05/06/2020 10:30 EST Office Visit [facility] Foot & Ankle Program - [address] [place] [address] Elza Navarro DPM [address] [place] [phone] Ulcer of great toe, left, with necrosis of bone ([facility]) (Primary Dx); Type 2 diabetes mellitus with diabetic polyneuropathy, with long-term current use of insulin ([facility]) Social [...] the great toe. She had to leave [employer] due to childcare issues at home. She [...] diabetes mellitus with left diabetic foot ulcer ([facility]) 05/03/2020 Priority: Medium ??? Osteomyelitis of great toe of left foot ([facility]) 03/12/2020 Priority: Medium ??? Diabetic foot ulcer associated with diabetes mellitus due to underlying condition ([facility]) 03/07/2020 Priority: Medium ??? Diabetic foot infection ([facility]) 03/06/2020 Priority: Medium ??? Diabetic foot ulcer ([facility]) 03/06/2020 Priority: Medium ??? Cellulitis of great toe of left foot 11/26/2019 Priority: Medium ??? Chronic midline low back pain without sciatica 11/26/2019 Priority: Medium ??? Chronic left ear pain 09/04/2015 Priority: Medium ??? Encounter for sterilization 11/20/2019 ??? Family history of rheumatoid arthritis 09/04/2015 ??? Type 2 diabetes mellitus ([facility]) 09/03/2015 ??? Anxiety and depression 05/12/2010 ??? Migraine with aura and without status migrainosus, not intractable Past Medical History: Diagnosis Date ??? Anxiety ??? Arthritis 12/05/19- Spine- told years ago ??? Diabetes ([facility]) A1c 10.3 on 11/28/2019 ??? History [...] with necrosis of bone ([facility]) 2. Type 2 diabetes mellitus with diabetic polyneuropathy, with long-term current use of insulin ([facility]) No orders of the defined types were [...] with speech recognition software or keyboard database tester techniques. Minor irregularities or keyboarding misprints may be present documented in this encounter Plan of Treatment Upcoming Encounters Date Type Department Care Team (Late st Contact Info) Description 02/21/2024 9:45 EDT Office Visit [facility] Adult Primary Care - [address] [phone] Carrington Calderon MD [address] [place] [phone] 02/27/2024 8:30 EDT Telemedicine [facility] Sleep Program - [address] [phone] Dwight Colbert [address] [place] [phone] 02/29/2024 10:30 EDT Appointment [facility] Radiology Nuclear Medicine and PET - [address] [address] 02/29/2024 14:30 EDT Appointment [facility] Radiology Nuclear Medicine and PET - [address] [address] 03/01/2024 8:00 EDT Appointment [facility] Radiology Nuclear Medicine and PET [address] [address] 03/01/2024 9:30 EDT Appointment [facility] Radiology Nuclear Medicine and PET - [address] [address] documented as of this encounter Visit Diagnoses Diagnosis Ulcer of great toe, left, with necrosis of bone ([facility])- Primary Type 2 diabetes mellitus with diabetic polyneuropathy, with long-term current use of insulin ([facility]) documented in this encounter Discontinued Medications [...]
--- OUTSIDE RECORDS SUMMARY | 2024-02-06 13:38 | XMS_ITS | Encounter Summary ---
Author Organization [facility] Address [address] [place] [address] Care Team Providers Care Hydrometer Calibrator Name Role Phone Carrington Calderon MD Primary Care Provi anders Abigail Díaz Unavailable Carmelo Hendrickson Unavailable Unavailable Abigail Díaz Unavailable [phone] Encounter Details Date Type Department Care Team (Late st Contact Info) Description 06/19/2020 Lab Requisition [facility] Pathology & Laboratory Medicine - [address] [address] Mushtaq Light, DO 111 [facility], Level [address] [place] [phone] Other acute osteomyelitis, left ankle and foot [...] [facility] Adult Primary Care - [place] [address] [place], [place] [phone] Carrington Calderon MD 1 [facility] Level 1 [place] [phone] 02/27/2024 8:30 EDT Telemedicine [facility] Sleep Program - [address] [place] [address] Dwight Colbert [address] [place] [address] 02/29/2024 10:30 EDT Appointment [facility] Radiology Nuclear Medicine and PET [address] [address] 02/29/2024 14:30 EDT Appointment [facility] Radiology Nuclear Medicine and PET [address] [address] 03/01/2024 8:00 EDT Appointment [facility] Radiology Nuclear Medicine and PET [address] [address] 03/01/2024 9:30 EDT Appointment [facility] Radiology Nuclear Medicine and PET [address] [phone] documented as of this encounter Procedures Procedure Name Priority Date/Time Associated Diagnosis Comments SED RATE After X-Ray 04/08/2020 12:00 EST Other acute osteomyelitis, left ankle and foot (HCC-CMS) COMPLETE BLOOD COUNT AND DIFFERENTIAL After X-Ray 04/08/2020 12:00 EST Other acute osteomyelitis, left ankle and foot ([facility]) C REACTIVE PROTEIN After X-Ray 04/08/2020 12 :00 EST Other acute osteomyelitis, left ankle and foot ([facility]) CREATININE After X-Ray 04/08/2020 12:00 EST Other acute osteomyelitis, left ankle and foot (HCC-CMS) documented in this encounter Results * (ABNORMAL) SED. RATE:MARLYN (04/08/2020 12:00 EST) Sed Rate 29(H) 0 - 20 mm/hr 07/01/2020 9:21 EST [facility] Blood VENOUS BLOOD / Unknown 04/08/2020 12:00 EST 06/19/2020 10:05 EST Mushtaq Light DO HEMATOLOGY & PF4 OR DERABLES [facility] [address] [place] [address] * (ABNORMAL) COMPLETE BLOOD COUNT AND DIFFERENTIAL (04/08/2020 12:00 EST) WBC 13.10(H) 4.00 - 12.40 K/cmm 07/01/2020 9:20 [facility] RBC 4.42 3.86 - 5.04 M/cmm 07/01/2020 9:20 [facility] Hemoglobin 13.3 11.6 - 15.2 gm/dL 07/01/2020 9:20 [facility] HCT 38.1 34.9 - 44.4 % 07/01/2020 9:20 [facility] MCV 86 81 - 98 fl 07/01/2020 9:20 [facility] MCH 30.1 26.7 - 33.3 pg 07/01/2020 9:20 [facility] MCHC 34.9 32.1 - 35.9 gm/dL 07/01/2020 9:20 [facility] RDW-CV 12.5 <14.7 % 07/01/2020 9:20 [facility] RDW-SD 39.4 <50.4 fl 07/01/2020 9:20 [facility] PLT 336 141 - 377 K/cmm 07/01/2020 9:20 [facility] MPV 10.1 9.5 - 12.7 fl 07/01/2020 9:20 [facility] % Neutrophils 54.3 % 07/01/2020 9:20 [facility] % Lymphocytes 34.2 % 07/01/2020 9:20 [facility] % Monocytes 7.4 % 07/01/2020 9:20 [facility] % Eosinophils 3.4 % 07/01/2020 9:20 [facility] % Basophils 0.5 % 07/01/2020 9:20 [facility] % Immature Grans 0.2 % 07/01/19 9:20 [facility] Absolute Neutrophils 7.10 2.20 - 8.85 K/cmm 07/01/2020 9:20 [facility] Absolute Lymphocytes 4.48(H) 1.09 - 3.30 K/cmm 07/01/2020 9:20 [facility] Absolute Monocytes 0.97(H) 0.10 - 0.80 K/cmm 07/01/2020 9:20 [facility] Absolute Eosinophils 0.45 0.03 - 0.61 K/cmm 07/01/2020 9:20 [facility] ABS Basophils 0.07 0.01 - 0.11 K/cmm 07/01/2020 9:20 [facility] Absolute Immature Grans 0.03 0.00 - 0.06 K/cmm 07/01/2020 9:20 [facility] Type of Differential: Auto 07/01/2020 9:20 [facility] Blood VENOUS BLOOD / Unknown 04/08/2020 12:00 EST 06/19/2020 10:05 EST Mushtaq Light DO PACKAGES & DNA PROB E ORDERABLES Performing Organization Address City/State/[facility] Co de Phone Number [facility] [address] [place] [address] * (ABNORMAL) CREATININE (04/08/2020 12:00 EST) Creatinine 0.42(L) 0.52 - 1.04 mg/dL 06/30/2020 12:00 [facility] eGFR 133 >60 mL/min/1.7 3m2 06/30/2020 12:00 [facility] Comment:eGFR calculated gil curtis CKD-EPI equation for non- Americans. Multiply eGFR by 1.16 for patients. Blood VENOUS BLOOD / Unknown 04/08/2020 12:00 EST 06/19/2020 10:05 EST Mushtaq Light DO CHEMISTRY & BLOOD G ORDERABLES Performing Organization Address City/[facility]/ZIP Co de Phone Number [facility] [address] [place] [address] * C REACTIVE PROTEIN (04/08/2020 12:00 EST) C-Reactive Protein 7.7 <10.0 mg/L 06/30/2020 12:00 EST [facility] Blood VENOUS BLOOD / Unknown 04/08/2020 12:00 EST 06/19/2020 10:05 EST Mushtaq Light CHEMISTRY & BLOOD G ORDERABLES Performing Organization Address [facility] Co de Phone Number [facility] [address] [place] [address] documented in this encounter Visit Diagnoses Diagnosis Other acute osteomyelitis, left ankle and foot (HCC-CMS) documented in this encounter Additional Health Concerns Infection Onset Date Last Indicated Resolved Time R/O COVID-19 08/04/2020 08/04/2020 08/04/2020 11:4 0 EST documented as of this encounter Care Teams Hydrometer Calibrator Relationship Specialty Start Date End Date Carrington Calderon MD [address] [phone] PCP - General Internal Medicine - Primary Care 12/09/20 Abigail Díaz Ross Lift Operator 04/21/23 01/03/24 Carmelo Hendrickson Coordinator 12/01/23 Abigail Díaz Ross Lift Operator 01/04/24 documented as of this encounter
--- OUTSIDE RECORDS SUMMARY | 2024-02-06 13:38 | XMS_ITS | Encounter Summary ---
Author Organization [facility] Address [address] [place] [address] Care Team Providers Care Pin Drafting Machine Tender Name Role Phone Unavailable Primary Care Provider Unavailabl e Reason for Visit * Reason Comments Foot Problem Encounter Details Date Type Department Care Team (Late st Contact Info) Description 03/25/2020 8:30 EDT Office Visit [facility] Foot & Ankle Program - [address] [address] Elza Navarro DPM [address] [place] [phone] Ulcer of great toe, left, with necrosis of bone ([facility]) (Primary Dx); Type 2 diabetes mellitus with diabetic polyneuropathy, with long-term current use of insulin ([facility]) Social History Tobacco Use Types [...] of great toe of left foot ([facility]) 03/12/2020 Priority: Medium ??? Diabetic foot ulcer associated with diabetes mellitus due to underlying condition ([facility]) 03/07/2020 Priority: Medium ??? Diabetic foot infection ([facility]) 03/06/2020 Priority: Medium ??? Diabetic foot ulcer ([facility]) 03/06/2020 Priority: Medium ??? Cellulitis of great toe of left foot 11/26/2019 Priority: Medium ??? Chronic midline low back pain without sciatica 11/26/2019 Priority: Medium ??? Chronic left ear pain 09/04/2015 Priority: Medium ??? Encounter for sterilization 11/20/2019 ??? Family history of rheumatoid arthritis 09/04/2015 ??? Type 2 diabetes mellitus ([facility]) 09/03/2015 ??? Anxiety and depression 05/12/2010 ??? Migraine with aura and without status migrainosus, not intractable Past Medical History: Diagnosis Date ??? Anxiety ??? Arthritis 12/05/19- Spine- told years ago ??? Diabetes ([facility]) A1c 10.3 on 11/28/2019 ??? History of [...] of bone ([facility]) 2. Type 2 diabetes mellitus with diabetic polyneuropathy, with long-term current use of insulin ([facility]) No orders of the defined [...] with speech recognition software or keyboard manager oracle database techniques. Minor irregularities or keyboarding misprints may be present * Swathi Tesfaye LPN - 03/25/2020 0830 EDT Call to [facility] with wound care orders. SWATHI TESFAYE LPN documented in this encounter Plan of Treatment Upcoming Encounters Date Type Department Care Team (Late st Contact Info) Description 02/21/2024 9:45 EDT Office Visit [facility] Adult Primary Care - [address] [phone] Carrington Calderon MD [address] [phone] 02/27/2024 8:30 EDT Telemedicine [facility] Sleep Program - [address] [phone] Dwight Colbert [address] [place] [phone] 02/29/2024 10:30 EDT Appointment [facility] Radiology Nuclear Medicine and PET - [address] [id number] 02/29/2024 14:30 EDT Appointment [facility] Radiology Nuclear Medicine and [address] [phone] 03/01/2024 8:00 EDT Appointment [facility] Radiology Nuclear Medicine and PET [address] [id number] 03/01/2024 9:30 EDT Appointment [facility] Radiology Nuclear Medicine and PET - [address] [address] documented as of this encounter Visit Diagnoses Diagnosis Ulcer of great toe, left, with necrosis of bone ([facility])- Primary Type 2 diabetes mellitus with diabetic polyneuropathy, with long-term current use of insulin ([facility]) documented in this encounter
--- OUTSIDE RECORDS SUMMARY | 2024-02-06 13:38 | XMS_ITS | Encounter Summary ---
Author Organization [facility] Address [address] [place] [address] Care Team Providers Care Taxation Economist Name Role Phone Carrington Calderon MD Primary Care Provi anders Abigail Díaz Unavailable Carmelo Hendrickson Unavailable Unavailable Abigail Díaz Unavailable Encounter Details Date Type Department Care Team (Late st Contact Info) Description 03/25/2020 Lab Requisition [facility] Pathology & Laboratory Medicine - [address] [phone] Mushtaq Light, DO 111 [facility], Level [address] [place] [phone] Encounter for other general examination Social History [...] Visit [facility] Adult Primary Care - [address] [phone] Carrington Calderon MD 1 [facility] 1 [place] [phone] 02/27/2024 8:30 EDT Telemedicine [facility] Sleep Program - [address] [phone] Dwight Colbert [address] [place] [address] 02/29/2024 10:30 EDT Appointment [facility] Radiology Nuclear Medicine and PET [address] [id number] 02/29/2024 14:30 EDT Appointment [facility] Radiology Nuclear Medicine and PET [address] [phone] 03/01/2024 8:00 EDT Appointment [facility] Radiology Nuclear Medicine and PET [address] [phone] 03/01/2024 9:30 EDT Appointment [facility] Radiology Nuclear Medicine and PET [address] [id number] documented as of this encounter Procedures Procedure [...] 0 - 20 mm/hr 03/25/2020 20:19 EDT [facility] Comment:Note: Sample greater than 4 hours old (but less than 12 hours) when tested. If refrigerated, sample is stable when tested within 12 hours of collection. Blood VENOUS BLOOD / Unknown 03/25/2020 13:25 EDT 03/25/2020 19:10 EDT Mushtaq Light DO HEMATOLOGY & PF4 OR DERABLES [facility] [address] [place] [address] * (ABNORMAL) COMPLETE BLOOD COUNT AND DIFFERENTIAL (03/25/2020 13:25 EDT) WBC 13.46(H) 4.00 - 12.40 K/cmm 03/25/2020 19:49 [facility] RBC 4.59 3.86 - 5.04 M/cmm 03/25/2020 19:49 [facility] Hemoglobin 13.8 11.6 - 15.2 gm/dL 03/25/2020 19:49 [facility] HCT 40.3 34.9 - 44.4 % 03/25/2020 19:49 [facility] MCV 88 81 - 98 fl 03/25/2020 19:49 [facility] MCH 30.1 26.7 - 33.3 pg 03/25/2020 19:49 [facility] MCHC 34.2 32.1 - 35.9 gm/dL 03/25/2020 19:49 [facility] RDW-CV 12.4 <14.7 % 03/25/2020 19:49 [facility] RDW-SD 40.0 <50.4 fl 03/25/2020 19:49 [facility] PLT 357 141 - 377 K/cmm 03/25/2020 19:49 [facility] MPV 10.1 9.5 - 12.7 fl 03/25/2020 19:49 [facility] % Neutrophils 52.3 % 03/25/2020 19:49 [facility] % Lymphocytes 36.8 % 03/25/2020 19:49 [facility] % Monocytes 7.3 % 03/25/2020 19:49 [facility] % Eosinophils 2.9 % 03/25/2020 19:49 [facility] % Basophils 0.5 % 03/25/2020 19:49 [facility] % Immature Grans 0.2 % 03/25/20 19:49 EDT [facility] Absolute Neutrophils 7.04 2.20 - 8.85 K/cmm 03/25/2020 19:49 [facility] Absolute Lymphocytes 4.95(H) 1.09 - 3.30 K/cmm 03/25/2020 19:49 [facility] Absolute Monocytes 0.98(H) 0.10 - 0.80 K/cmm 03/25/2020 19:49 [facility] Absolute Eosinophils 0.39 0.03 - 0.61 K/cmm 03/25/2020 19:49 [facility] ABS Basophils 0.07 0.01 - 0.11 K/cmm 03/25/2020 19:49 [facility] Absolute Immature Grans 0.03 0.00 - 0.06 K/cmm 03/25/2020 19:49 [facility] Type of Differential: Auto 03/25/2020 19:49 [facility] Blood VENOUS BLOOD / Unknown 03/25/2020 13:25 EDT 03/25/2020 19:10 EDT Mushtaq Light DO PACKAGES & DNA PROB E ORDERABLES [facility] [address] [place] [address] * (ABNORMAL) CREATININE (03/25/2020 13:25 EDT) Creatinine 0.44(L) 0.52 - 1.04 mg/dL 03/25/2020 19:46 EDT [facility] eGFR 131 >60 mL/min/1.7 3m2 03/25/2020 19:46 T [facility] Comment:eGFR calculated gil curtis CKD-EPI equation for non- Americans. Multiply eGFR by 1.16 for patients. Blood VENOUS BLOOD / Unknown 03/25/2020 13:25 EDT 03/25/2020 19:10 EDT Mushtaq J Kuldeep DO CHEMISTRY & BLOOD G ORDERABLES Performing Organization Address City/[facility]/ZIP Co de Phone Number [facility] [address] [place] [address] * C REACTIVE PROTEIN (03/25/2020 13:25 EDT) C-Reactive Protein <7.0 <10.0 mg/L 03/25/2020 19:46 EDT [facility] Blood VENOUS BLOOD / Unknown 03/25/2020 13:25 EDT 03/25/2020 19:10 EDT Mushtaq Santizo [place] CHEMISTRY & BLOOD G ORDERABLES Performing Organization Address City/[facility] Co de Phone Number [facility] [address] [place] [address] documented in this encounter Visit Diagnoses Diagnosis Encounter for other general examination documented in this encounter Additional Health Concerns Infection Onset Date Last Indicated Resolved Time R/O COVID-19 08/04/2020 08/04/2020 08/04/2020 11:4 0 EST documented as of this encounter Care Teams Taxation Economist Relationship Specialty Start Date End Date Carrington Calderon MD 1 [facility] 1 [place] [phone] PCP - General Internal Medicine - Primary Care 12/09/20 Abigail Díaz Job Training Supervisor 04/21/23 01/03/24 Carmelo Hendrickson Coordinator 12/01/23 Abigail Díaz Job Training Supervisor 01/04/24 documented as of this encounter
--- OUTSIDE RECORDS SUMMARY | 2024-02-06 13:38 | XMS_ITS | Encounter Summary ---
Author Organization [facility] Address [address] [place] [address] Care Team Providers Care Accounts Receivable Clerk Name Role Phone Unavailable Primary Care Provider Unavailabl e Reason for Visit * Reason Comments Follow-up Encounter Details Date Type Department Care Team (Late st Contact Info) Description 04/16/2020 9:30 EST Telemedicine [facility] Infectious Disease - [address] [phone] Mushtaq Light, DO 111 [facility], Level [address] [place] [phone] Osteomyelitis of great toe of [...] For patients, please refer to guidance in [employer] on how to locate information. Generally this information will appear as a scanned documents saved in My Documents activity. documented in this encounter Plan of Treatment Upcoming Encounters Date Type Department Care Team (Late st Contact Info) Description 02/21/2024 9:45 EDT Office Visit [facility] Adult Primary Care - [address] [phone] Carrington Calderon MD 1 [facility] 1 [place] [phone] 02/27/2024 8:30 EDT Telemedicine [facility] Sleep Program - [address] [place] [address] Colbert Dwight [address] [place] [address] 02/29/2024 10:30 EDT [facility] Rad[facility] Nuclear Medicine and PET - [address] [id number] 02/29/2024 14:30 EDT [facility]ointment [facility] Radiology Nuclear Medicine and PET - [address] [id number] 03/01/2024 8:00 EDT Appointment [facility] Radiology Nuclear Medicine and PET - [address] [phone] 03/01/2024 9:30 EDT Appointment [facility] Radiology Nuclear Medicine and PET - [address] [id number] documented as of this encounter Visit Diagnoses Diagnosis Osteomyelitis of great toe of left foot (HCC-CMS)- Primary documented in this encounter
--- OUTSIDE RECORDS SUMMARY | 2024-02-06 13:38 | XMS_ITS | Encounter Summary ---
Author Organization [facility] Address [address] [place] [address] Care Team Providers Care Registered Diet Technician Name Role Phone Unavailable Primary Care Provider Unavailabl e Reason for Visit * Reason Comments Follow-up Encounter Details Date Type Department Care Team (Latest Contact Info) Description 04/07/2020 10:00 EST Office Visit [facility] [place]ious [place] [address] Nurse, Id, RN Osteomyelitis of great toe [...] [facility] - [address] [phone] Carrington Calderon MD 1 [facility] 1 [place] [address] 02/27/2024 8:30 EDT Telemedicine [facility] Sleep Program - [address] [place] 1 [place] [address] Dwight Colbert [address] [place] [address] 02/29/2024 10:30 EDT [facility] Radiology Nuclear Medicine and PET - [address] [id number] 02/29/2024 14:30 EDT Appointment [facility] Radiology Nuclear Medicine and PET - [address] [id number] 03/01/2024 8:00 EDT Appointment [facility] Radiology Nuclear Medicine and PET - [address] [id number] 03/01/2024 9:30 EDT Appointment [facility] Radiology Nuclear Medicine and PET - [address] [id number] documented as of this encounter Visit Diagnoses Diagnosis Osteomyelitis of great toe of left foot (HCC-CMS)- Primary documented in this encounter
--- OUTSIDE RECORDS SUMMARY | 2024-02-06 13:38 | XMS_ITS | Encounter Summary ---
Author Organization [facility] Address [address] [place] [address] Care Team Providers Care Corporate Paralegal Name Role Phone Unavailable Primary Care Provider Unavailabl e Encounter Details Date Type Department Care Team ([facility] Contact Info) Description 05/12/2020 Documentation Visit [facility] - [address] [place], [place] [phone] Marcel Bustamante Social History Tobacco Use Types [facility] - [address] 579201 Carrington Calderon MD 1 [facility] 1 [place] [address] 02/27/2024 8:30 EDT Telemedicine [facility] Sleep Program - [address] 818481 Dwight Colbert [address] [place] [address] [phone] 02/29/2024 10:30 EDT Appointment [facility] Radiology Nuclear Medicine and PET [address] [phone] 02/29/2024 14:30 EDT Appointment [facility] Radiology Nuclear Medicine and PET [address] [id number] 03/01/2024 8:00 EDT Appointment [facility] Radiology Nuclear Medicine and PET [address] [id number] 03/01/2024 9:30 EDT Appointment [facility] Radiology Nuclear Medicine and PET [address] [phone] documented as of this encounter Visit Diagnoses [...]
--- OUTSIDE RECORDS SUMMARY | 2024-02-06 13:38 | XMS_ITS | Encounter Summary ---
Author Organization [facility] Address [address] [place] [address] Care Team Providers Care Child Watch Attendant Name Role Phone Carrington Calderon MD Primary Care Provi anders Abigail Díaz Unavailable Carmelo Hendrickson Unavailable Unavailable Abigail Díaz Unavailable Encounter Details Date Type Department Care Team (Late st Contact Info) Description 04/01/2020 Lab Requisition [facility] Pathology & Laboratory Medicine - [address] 437061 Mushtaq Light, DO 111 [facility], Level [address] [place] [phone] Encounter for other general examination Social History [...] [facility] Adult Primary Care - [address] 605401 Carrington Calderon MD 1 [facility] 1 [place] [phone] 02/27/2024 8:30 EDT Telemedicine [facility] Sleep Program - [address] [phone] Dwight Colbert [address] [place] [address] 02/29/2024 10:30 EDT Appointment [facility] Radiology Nuclear Medicine and PET [address] [id number] 02/29/2024 14:30 EDT Appointment [facility] Radiology Nuclear Medicine and PET [address] [phone] 03/01/2024 8:00 EDT Appointment [facility] Radiology Nuclear Medicine and PET [address] [phone] 03/01/2024 9:30 EDT Appointment [facility] Radiology Nuclear Medicine and PET [address] [phone] documented as of this encounter Procedures Procedure [...] 0 - 20 mm/hr 04/01/2020 20:32 EDT [facility] Comment:Note: Sample greater than 4 hours old (but less than 12 hours) when tested. If refrigerated, sample is stable when tested within 12 hours of collection. Blood VENOUS BLOOD / Unknown Non-Lab Collect / Unknown 04/01/2020 10:10 EDT 04/01/2020 18:42 EDT Mushtaq Light DO HEMATOLOGY & PF4 OR DERABLES [facility] [address] [place] [address] * (ABNORMAL) COMPLETE BLOOD COUNT AND DIFFERENTIAL (04/01/2020 10:10 EDT) WBC 10.42 4.00 - 12.40 K/cmm 04/01/2020 19:15 [facility] RBC 4.54 3.86 - 5.04 M/cmm 04/01/2020 19:15 [facility] Hemoglobin 13.7 11.6 - 15.2 gm/dL 04/01/2020 19:15 [facility] HCT 40.9 34.9 - 44.4 % 04/01/2020 19:15 [facility] MCV 90 81 - 98 fl 04/01/2020 19:15 [facility] MCH 30.2 26.7 - 33.3 pg 04/01/2020 19:15 [facility] MCHC 33.5 32.1 - 35.9 gm/dL 04/01/2020 19:15 [facility] RDW-CV 12.4 <14.7 % 04/01/2020 19:15 [facility] RDW-SD 40.9 <50.4 fl 04/01/2020 19:15 [facility] PLT 336 141 - 377 K/cmm 04/01/2020 19:15 [facility] MPV 10.5 9.5 - 12.7 fl 04/01/2020 19:15 [facility] % Neutrophils 48.0 % 04/01/2020 19:15 [facility] % Lymphocytes 38.5 % 04/01/2020 19:15 [facility] % Monocytes 8.1 % 04/01/2020 19:15 [facility] % Eosinophils 4.5 % 04/01/2020 19:15 [facility] % Basophils 0.7 % 04/01/2020 19:15 [facility] % Immature Grans 0.2 % 04/01/20 20 19:15 [facility] Absolute Neutrophils 5.01 2.20 - 8.85 K/cmm 04/01/2020 19:15 [facility] Absolute Lymphocytes 4.01(H) 1.09 - 3.30 K/cmm 04/01/2020 19:15 [facility] Absolute Monocytes 0.84(H) 0.10 - 0.80 K/cmm 04/01/2020 19:15 [facility] Absolute Eosinophils 0.47 0.03 - 0.61 K/cmm 04/01/2020 19:15 [facility] ABS Basophils 0.07 0.01 - 0.11 K/cmm 04/01/2020 19:15 [facility] Absolute Immature Grans 0.02 0.00 - 0.06 K/cmm 04/01/2020 19:15 [facility] Type of Differential: Auto 04/01/2020 19:15 [facility] Blood VENOUS BLOOD / Unknown Non-Lab Collect / Unknown 04/01/2020 10:10 EDT 04/01/2020 18:42 EDT Mushtaq Light DO PACKAGES & DNA PROB E ORDERABLES [facility] [address] [place] [address] * (ABNORMAL) CREATININE (04/01/2020 10:10 EDT) Creatinine 0.37(L) 0.52 - 1.04 mg/dL 04/01/2020 19:10 T [facility] eGFR 139 >60 mL/min/1.7 3m2 04/01/2020 19:10 [facility] Comment:eGFR calculated gil curtis CKD-EPI equation for non- Americans. Multiply eGFR by 1.16 for patients. Blood VENOUS BLOOD / Unknown Non-Lab Collect / Unknown 04/01/2020 10:10 EDT 04/01/2020 18:42 EDT Mushtaq Light DO CHEMISTRY & BLOOD G ORDERABLES Performing Organization Address City/[facility] Co de Phone Number [facility] [address] [place] [address] * C REACTIVE PROTEIN (04/01/2020 10:10 EDT) C-Reactive Protein <7.0 <10.0 mg/L 04/01/2020 19:10 EDT [facility] Blood VENOUS BLOOD / Unknown Non-Lab Collect / Unknown 04/01/2020 10:10 EDT 04/01/2020 18:42 EDT Mushtaq Light DO CHEMISTRY & BLOOD G ORDERABLES Performing Organization Address City/[facility] Co de Phone Number [facility] [address] [place] [address] documented in this encounter Visit Diagnoses Diagnosis Encounter for other general examination documented in this encounter Additional Health Concerns Infection Onset Date Last Indicated Resolved Time R/O COVID-19 08/04/2020 08/04/2020 08/04/2020 11:4 0 EST documented as of this encounter Care Teams Child Watch Attendant Relationship Specialty Start Date End Date Carrington Calderon MD 1 [facility] 1 [place] [address] PCP - General Internal Medicine - Primary Care 12/09/20 Abigail Díaz Doweler 04/21/23 01/03/24 Carmelo Hendrickson Coordinator 12/01/23 Abigail Díaz Doweler 01/04/24 documented as of this encounter
--- OUTSIDE RECORDS SUMMARY | 2024-02-06 13:38 | XMS_ITS | Encounter Summary ---
Author Organization [facility] Address [address] [place] [address] Care Team Providers Care Knife Grinder Name Role Phone Unavailable Primary Care [...] [facility] Adult Primary Care - [address] [phone] Carrington Calderon MD [address] [address] 02/27/2024 8:30 EDT Telemedicine [facility] Sleep Program - [address] [address] Dwight Colbert [address] [place] [address] 050661 02/29/2024 10:30 EDT Appointment [facility] Radiology Nuclear Medicine and PET - [address] [id number] 02/29/2024 14:30 EDT Appointment [facility] Radiology Nuclear Medicine and PET - [address] [id number] 03/01/2024 8:00 EDT Appointment [facility] Radiology Nuclear Medicine and PET - [address] [id number] 03/01/2024 9:30 EDT Appointment [facility] Radiology Nuclear Medicine and PET - [address] [address] documented as of this encounter Visit Diagnoses Not on filedocumented in this encounter
--- OUTSIDE RECORDS SUMMARY | 2024-02-06 13:38 | XMS_ITS | Encounter Summary ---
Author Organization [facility] Address [address] [place] [address] Care Team Providers Care Scientific Database Curator Name Role Phone Unavailable Primary Care Provider Unavailabl e Reason for Visit * Reason Comments Follow-up Encounter Details Date Type Department Care Team (Late st Contact Info) Description 04/03/2020 13:30 EDT Telemedicine [facility] Infectious Disease - [address] [phone] Tonja Plascencia NP [address] [facility], Level [address] [place] [address] Osteomyelitis of great toe of [...] For patients, please refer to guidance in bepretty on how to locate information. Generally this information will appear as a scanned documents saved in My Documents activity. documented in this encounter Plan of Treatment Upcoming Encounters Date Type Department Care Team (Late st Contact Info) Description 02/21/2024 9:45 EDT Office Visit [facility] Adult Primary Care - [address] [phone] Carrington Calderon MD 1 [facility] 1 [place] [address] 02/27/2024 8:30 EDT Telemedicine [facility] Sleep Program - [facility] 1 [place] [address] ColbertDwight garner [address] [place] [address] 02/29/2024 10:30 EDT [facility] Radiology Nuclear Medicine and PET - [address] [id number] 02/29/2024 14:30 EDT Appointment [facility] Radiology Nuclear Medicine and PET - [address] [phone] 03/01/2024 8:00 EDT Appointment [facility] Radiology Nuclear Medicine and PET - [address] [phone] 03/01/2024 9:30 EDT Appointment [facility] Radiology Nuclear Medicine and PET - [address] 790301 documented as of this encounter Visit Diagnoses Diagnosis Osteomyelitis of great toe of left foot (HCC-CMS)- Primary documented in this encounter
--- OUTSIDE RECORDS SUMMARY | 2024-02-06 13:38 | XMS_ITS | Encounter Summary ---
Author Organization [facility] Address [address] [place] [address] Care Team Providers Care Sewing Machine Operator Floorperson Name Role Phone Unavailable Primary Care Provider Unavailabl e Reason for Visit * Reason Comments Pain Follow-up Encounter Details Date Type Department Care Team (Late st Contact Info) Description 04/30/2020 8:30 EST Office Visit [facility] Foot & Ankle Program - [address] [address] Elza Navarro DPM [address] [place] [address] Ulcer of great toe, left, with necrosis of bone ([facility]) (Primary Dx); Type 2 diabetes mellitus with diabetic polyneuropathy, with long-term current use of insulin ([facility]) Social History Tobacco Use Types Packs/Day Years [...] Osteomyelitis of great toe of left foot ([facility]) 03/12/2020 Priority: Medium ??? Diabetic foot ulcer associated with diabetes mellitus due to underlying condition ([facility]) 03/07/2020 Priority: Medium ??? Diabetic foot infection ([facility]) 03/06/2020 Priority: Medium ??? Diabetic foot ulcer ([facility]) 03/06/2020 Priority: Medium ??? Cellulitis of great toe of left foot 11/26/2019 Priority: Medium ??? Chronic midline low back pain without sciatica 11/26/2019 Priority: Medium ??? Chronic left ear pain 09/04/2015 Priority: Medium ??? Encounter for sterilization 11/20/2019 ??? Family history of rheumatoid arthritis 09/04/2015 ??? Type 2 diabetes mellitus ([facility]) 09/03/2015 ??? Anxiety and depression 05/12/2010 ??? Migraine with aura and without status migrainosus, not intractable Past Medical History: Diagnosis Date ??? Anxiety ??? Arthritis 12/05/19- Spine- told years ago ??? Diabetes ([facility]) A1c 10.3 on 11/28/2019 ??? History [...] great toe, left, with necrosis of bone ([facility]) 2. Type 2 diabetes mellitus with diabetic polyneuropathy, with long-term current use of insulin ([facility]) No orders of the defined types [...] with speech recognition software or keyboard data miner techniques. Minor irregularities or keyboarding misprints may be present documented in this encounter Plan of Treatment Upcoming Encounters Date Type Department Care Team (Late st Contact Info) Description 02/21/2024 9:45 EDT Office Visit [facility] Adult Primary Care - [address] [address] Carrington Calderon MD 1 [facility] 1 [place] [address] 02/27/2024 8:30 EDT Telemedicine [facility] Sleep Program - [address] [address] Dwight Colbert [address] [place] [address] 02/29/2024 10:30 EDT Appointment [facility] Radiology Nuclear Medicine and PET [address] [id number] 02/29/2024 14:30 EDT Appointment [facility] Radiology Nuclear Medicine and PET [address] 882151 03/01/2024 8:00 EDT Appointment [facility] Radiology Nuclear Medicine and PET [address] 350561 03/01/2024 9:30 EDT Appointment [facility] Radiology Nuclear Medicine and [address] [phone] documented as of this encounter Visit Diagnoses Diagnosis Ulcer of great toe, left, with necrosis of bone ([facility])- Primary Type 2 diabetes mellitus with diabetic polyneuropathy, with long-term current use of insulin ([facility]) documented in this encounter Historical Medications [...]
--- OUTSIDE RECORDS SUMMARY | 2024-02-06 13:38 | XMS_ITS | Encounter Summary ---
Author Organization [facility] Address [address] [place] [address] Care Team Providers Care Registered Travel Nurse Name Role Phone Unavailable Primary Care Provider Unavailabl e Reason for Visit * Reason Onset Date Comments Home Health 04/01/2020 Encounter Details Date Type Department Care Team (Late st Contact Info) Description 04/01/2020 Telephone [facility] Infectious Disease - [address] 157181 Mushtaq Light, DO [address] [facility], Level [address] [place] [address] Home Health Social History Tobacco [...] Telephone Encounter - Smita Green - 04/01/2020 1359 EDT Kylah from [facility] states that she did picc dressing change and clave, but was not able to get the extension tubing off. Would like a call back with plan. [phone]. documented in this encounter Plan of Treatment Upcoming Encounters Date Type Department Care Team (Late st Contact Info) Description 02/21/2024 9:45 EDT Office Visit [facility] Adult Primary Care - [place] [address] [place], [place] [phone] Carrington Calderon MD 1 [facility] Level 1 [place] [address] 02/27/2024 8:30 EDT Telemedicine [facility] Sleep Program - [place] [address] [place] [address] Dwight Colbert [address] [place] [address] 02/29/2024 10:30 EDT Appointment [facility] Radiology Nuclear Medicine and PET - [address] [phone] 02/29/2024 14:30 EDT Appointment [facility] Radiology Nuclear Medicine and PET - [address] [phone] 03/01/2024 8:00 EDT Appointment [facility] Radiology Nuclear Medicine and PET - [address] [phone] 03/01/2024 9:30 EDT Appointment [facility] Radiology Nuclear Medicine and PET - [address] [phone] documented as of this encounter Visit Diagnoses Not on filedocumented in this encounter
--- OUTSIDE RECORDS SUMMARY | 2024-02-06 13:38 | XMS_ITS | Encounter Summary ---
Author Organization [facility] Address [address] [place] [address] Care Team Providers Care Head Start Teacher Name Role Phone Unavailable Primary Care Provider Unavailabl e Reason for Visit * Reason Onset Date Comments Home Health 04/01/2020 Telemedicine Video Visit 04/01/2020 Encounter Details Date Type Department Care Team (Late st Contact Info) Description 04/01/2020 Telephone [facility] Adult Primary Care [address] 706991 Tonja Alejandro PA-C [address] [place] [address] [place] [address] Home Health; Telemedicine Video Visit Social [...] Zoom appt ID: [id number] [id number]: [id number] * Telephone Encounter - Jesi Lua RN [...] 04/01/2020 1635 EDT [facility] patient is frustrated because [...] [facility] - [address] [phone] Carrington Calderon MD 1 [facility] Level 1 [place] [phone] 02/27/2024 8:30 EDT Telemedicine [facility] Sleep Program - [address] [place] 1 [place] [address] Dwight Colbert [address] [place] [address] 02/29/2024 10:30 EDT [facility] Radiology Nuclear Medicine and PET - [address] [address] 02/29/2024 14:30 EDT [facility] Radiology Nuclear Medicine and PET - [address] [id number] 03/01/2024 8:00 EDT Appointment [facility] Radiology Nuclear Medicine and PET - [address] [phone] 03/01/2024 9:30 EDT Appointment [facility] Radiology Nuclear Medicine and PET - [address] [phone] documented as of this encounter Visit Diagnoses Not on filedocumented in this encounter
--- OUTSIDE RECORDS SUMMARY | 2024-02-06 13:38 | XMS_ITS | Encounter Summary ---
Author Organization [facility] Address [address] [place] [address] Care Team Providers Care Senior Drupal Developer Name Role Phone Unavailable Primary Care Provider Unavailabl e Reason for Visit * Reason Comments Foot Problem * Follow Up (Routine/Next Available) - Receiving Office to Obtain Authorization Specialty Diagnoses / Procedures Referred By Kit goode Referred To Contact Podiatry Diagnoses Diabetic foot ulcer ([facility]) Carrington Mari MD [address] [place] [address] [facility] Podiatry [address] [place] [address] Referral ID Status Reason Start Date Expiration Date Visits Requested Visits Authorized [id number] Receiving Office to Obtain Authorization Specialty Services Required 0 1 1 Encounter Details Date Type Department Care Team (Late st Contact Info) Description 05/14/2020 14:30 EST Office Visit [facility] Foot & Ankle Program - [address] [place] [address] Elza Navarro DPM [address] [place] [phone] Ulcer of great toe, left, with necrosis of bone ([facility]) (Primary Dx); Type 2 diabetes mellitus with diabetic polyneuropathy, with long-term current use of insulin ([facility]) Social History Tobacco Use Types Packs/Day [...] Notes * Elza Navarro, DPM - 05/14/2020 1780 EST Images from the original note were [...] shoe andinsole. She has been taking the ywnrkpjiaaz-Frsuazifh-ntciykl any issues. She has been changing thedressing daily. Overall she is feeling well today. She denies pain in the toe. She denies nausea, vomiting, fever, chills. Patient Active Problem List Diagnosis Date Noted ??? 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 ([facility]) 05/03/2020 Priority: Medium ??? Osteomyelitis of great toe of left foot ([facility]) 03/12/2020 Priority: Medium ??? Diabetic foot ulcer associated with diabetes mellitus due to underlying condition ([facility]) 03/07/2020 Priority: Medium ??? Diabetic foot infection ([facility]) 03/06/2020 Priority: Medium ??? Diabetic foot ulcer ([facility]) 03/06/2020 Priority: Medium ??? Cellulitis of great toe of left foot 11/26/2019 Priority: Medium ??? Chronic midline low back pain without sciatica 11/26/2019 Priority: Medium ??? Chronic left ear pain 09/04/2015 Priority: Medium ??? Encounter for sterilization 11/20/2019 ??? Family history of rheumatoid arthritis 09/04/2015 ??? Type 2 diabetes mellitus ([facility]) 09/03/2015 ??? Anxiety and depression 05/12/2010 ??? Migraine with aura and without status migrainosus, not intractable Past Medical History: Diagnosis Date ??? Anxiety ??? Arthritis 12/05/19- Spine- told years ago ??? Diabetes ([facility]) A1c 10.3 on 11/28/2019 ??? History [...] with necrosis of bone ([facility]) 2. Type 2 diabetes mellitus with diabetic polyneuropathy, with long-term current use of insulin ([facility]) No orders of the defined types [...] with speech recognition software or keyboard data base design analyst techniques. Minor irregularities or keyboarding misprints may be present documented in this encounter Plan of Treatment Upcoming Encounters Date Type Department Care Team (Late st Contact Info) Description 02/21/2024 9:45 EDT Office Visit [facility] Adult Primary Care - [address] [phone] Carrington Calderon MD 1 [facility] 1 [place] [address] 02/27/2024 8:30 EDT Telemedicine [facility] Sleep Program - [address] [phone] Dwight Colbert [address] [place] [address] [phone] 02/29/2024 10:[address] [facility] Radiology Nuclear Medicine and PET [address] [phone] 02/29/2024 14:[address] [facility] Radiology Nuclear Medicine and PET - [address] [id number] 03/01/2024 8:[address] [facility] Radiology Nuclear Medicine and PET [address] [id number] 03/01/2024 9:[address] [facility] Radiology Nuclear Medicine and PET [address] [phone] documented as of this encounter Visit Diagnoses Diagnosis Ulcer of great toe, left, with necrosis of bone (HCC-CMS)- Primary Type 2 diabetes mellitus with diabetic polyneuropathy, with long-term current use of insulin ([facility]) documented in this encounter
--- OUTSIDE RECORDS SUMMARY | 2024-02-06 13:38 | XMS_ITS | Encounter Summary ---
Author Organization [facility] Address [address] [place] [address] Care Team Providers Care Information Systems Security Officer Name Role Phone Unavailable Primary Care Provider Unavailabl e Reason for Visit * Reason Onset Date Comments Abnormal Lab 05/05/2020 Encounter Details Date Type Department Care Team ([facility] st Contact Info) Description 05/05/2020 Telephone [facility] Medicine [address] [address] Shari Grider, DO [address] [place] [address] Abnormal Lab Social History Tobacco Use Types [...] Encounter - Shari Grider DO - 05/05/2020 4770 EST Lab called with critical result - blood culture positive for gram positive bacilli at 37 hours in 1/2 aerobic bottles. Case discussed with Dr. You who notes patient was well-appearing when she left AMA last night. Will check in with her tomorrow AM and let her outpatient care team know. Shari Grider DO 05/05/20 22:20 Family Medicine PGY-3 Pager #[phone] documented in this encounter Plan of Treatment Upcoming Encounters Date Type Department Care Team (Late st Contact Info) Description 02/21/2024 9:45 EDT Office Visit [facility] Adult Primary Care - [address] [address] Carrington Calderon MD 1 [facility] 1 [place] [address] 02/27/2024 8:30 EDT Telemedicine [facility] Sleep Program - [address] [address] Dwight Colbert [address] [place] [address] [phone] 02/29/2024 10:30 ED[facility] Rad[facility] Nuclear Medicine and PET [address] [phone] 02/29/2024 14:30 EDT Appointment [facility] Radiology Nuclear Medicine and PET [address] [id number] 03/01/2024 8:00 EDT Appointment [facility] Radiology Nuclear Medicine and PET - [address] [phone] 03/01/2024 9:30 EDT Appointment [facility] Radiology Nuclear Medicine and PET [address] [phone] documented as of this encounter Visit Diagnoses Not on filedocumented in this encounter
--- OUTSIDE RECORDS SUMMARY | 2024-02-06 13:38 | XMS_ITS | Encounter Summary ---
Author Organization [facility] Address [address] [place] [address] Care Team Providers Care Mapping Engineer Name Role Phone Unavailable Primary Care Provider Unavailabl e Reason for Visit * Reason Comments Diabetes Encounter Details Date Type Department Care Team (Latest Contact Info) Description 04/14/2020 13:30 EST Telemedicine [facility] Adult Primary Care - [address] [phone] Tonja Alejandro PA-C [address] [place] [address] [place] [phone] Polyneuropathy associated with underlying disease (HCC-CMS) [...] as of this encounter Progress Notes * Zka Hall - 04/14/2020 1330 EST Due to computer system disruption, additional clinical information for this visit is Dictated Note. For patients, please refer to guidance in [employer]Way on how to locate information. Generally this information will appear as a scanned documents saved in My Documents activity. * Tonja Alejandro PA-C - 04/14/2020 1330 EST [facility] PROGRESS / FOLLOWUP NOTE - 04/14/2020 CONSENT: [...] Tonja Alejandro PA-C / DB Dictation ID: [id number] cc: documented in this encounter Plan of Treatment Upcoming Encounters Date Type Department Care Team (Late st Contact Info) Description 02/21/2024 9:45 EDT Office Visit [facility] Adult Primary Care - [address] 31[address] Carrington Calderon MD [address] [place] [address] 1 [place] [phone] 02/27/2024 8:30 EDT Telemedicine [facility] Sleep Program - [address] [phone] Dwight Colbert [address] [place] [address] [phone] 02/29/2024 10:30 EDT Appointment [facility] Radiology Nuclear Medicine and PET - [address] [phone] 02/29/2024 14:30 EDT Appointment [facility] Radiology Nuclear Medicine and PET - [address] [address] 03/01/2024 8:00 EDT Appointment [facility] Radiology Nuclear Medicine and PET - [address] [address] 03/01/2024 9:30 EDT Appointment [facility] Radiology Nuclear Medicine and PET - [address] [address] documented as of this encounter Visit Diagnoses Diagnosis Polyneuropathy associated with underlying disease ([facility])- Primary Osteomyelitis of great toe of left foot ([facility]) 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
--- OUTSIDE RECORDS SUMMARY | 2024-02-06 13:38 | XMS_ITS | Encounter Summary ---
Author Organization [facility] Address [address] [place] [address] Care Team Providers Care Machine Set Up Name Role Phone Unavailable Primary Care Provider Unavailabl e Reason for Visit * Reason Onset Date Comments Medications Refill 03/21/2020 Encounter Details Date Type Department Care Team (Late st Contact Info) Description 03/21/2020 Refill [facility] Endocrinology - [facility] [address] [place], [place] [phone] Sara Zafar NP [address] [facility] [address] [place] [phone] Medications Refill Social History Tobacco [...] [facility] Adult Primary Care - [address] [address] Carrington Calderon MD 1 [facility] 1 [place] [address] 02/27/2024 8:30 EDT Telemedicine [facility] Sleep Program - [address] [address] Dwight Colbert [address] [place] [address] 02/29/2024 10:30 EDT Appointment [facility] Radiology Nuclear Medicine and PET [address] [id number] 02/29/2024 14:30 EDT Appointment [facility] Radiology Nuclear Medicine and PET [address] [phone] 03/01/2024 8:00 EDT Appointment [facility] Radiology Nuclear Medicine and PET [address] [phone] 03/01/2024 9:30 EDT Appointment [facility] Radiology Nuclear Medicine and PET [address] [address] documented as of this encounter Visit Diagnoses [...]
--- OUTSIDE RECORDS SUMMARY | 2024-02-06 13:38 | XMS_ITS | Encounter Summary ---
Author Organization [facility] Address [address] [place] [address] Care Team Providers Care Precision Lens Grinder Apprentice Name Role Phone Unavailable Primary Care Provider Unavailabl e Reason for Visit * Reason Comments Telemedicine Video Visit Encounter Details Date Type Department Care Team (Late st Contact Info) Description 06/04/2020 12:00 EST Telemedicine [facility] Infectious Disease - [address] 877881 Mushtaq Light, DO 111 [facility], Level [address] [place] [address] Osteomyelitis of great toe of [...] 12/05/19- Spine- told years ago ??? Diabetes ([facility]) ? A1c 10.3 on 11/28/2019 ??? [...] BODIES: None ?? 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 Attends latter-day service: Not on file ? 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 swab: negative 05/04 blood cultures:06/09 bottles growing [...] [facility] - [address] 179161 Carrington Calderon MD [address] [phone] 02/27/2024 8:30 EDT Telemedicine [facility] Sleep Program - [address] [phone] Dwight Colbert [address] [place] [phone] 02/29/2024 10:30 EDT Appointment [facility] Radiology Nuclear Medicine and PET - [address] [place] [address] [phone] 02/29/2024 14:30 EDT Appointment [facility] Radiology Nuclear Medicine and PET - [address] [place] [address] [phone] 03/01/2024 8:00 EDT Appointment [facility] Radiology Nuclear Medicine and PET [address] [phone] 03/01/2024 9:30 EDT Appointment [facility] Radiology Nuclear Medicine and PET [address] [phone] documented as of this encounter Visit Diagnoses Diagnosis Osteomyelitis of great toe of left foot (HCC-CMS)- Primary documented in this encounter
--- OUTSIDE RECORDS SUMMARY | 2024-02-06 13:38 | XMS_ITS | Encounter Summary ---
Author Organization [facility] Address [address] [place] [address] Care Team Providers Care Cigarette Roller Name Role Phone Unavailable Primary Care [...] Visit [facility] Adult Primary Care - [address] [phone] Carrington Calderon MD [address] [phone] 02/27/2024 8:30 EDT Telemedicine [facility] Sleep Program - [address] [address] Dwight Colbert [address] [place] [address] [phone] 02/29/2024 10:30 EDT Appointment [facility] Radiology Nuclear Medicine and PET - [address] [phone] 02/29/2024 14:30 EDT Appointment [facility] Radiology Nuclear Medicine and PET - [address] [id number] 03/01/2024 8:00 EDT Appointment [facility] Radiology Nuclear Medicine and PET - [address] [id number] 03/01/2024 9:30 EDT Appointment [facility] Radiology Nuclear Medicine and PET - [address] [address] documented as of this encounter Visit Diagnoses Not on filedocumented in this encounter
--- OUTSIDE RECORDS SUMMARY | 2024-02-06 13:38 | XMS_ITS | Encounter Summary ---
Author Organization [facility] Address [address] [place] [address] Care Team Providers Care Wellness Trainer Name Role Phone Unavailable Primary Care Provider Unavailabl e Reason for Visit * Reason Comments Telemedicine Video Visit Encounter Details Date Type Department Care Team (Late st Contact Info) Description 03/27/2020 13:30 EDT Telemedicine [facility] Infectious Disease - [address] [phone] Tonja Plascencia NP 111 [facility], Level [address] [place] [address] Osteomyelitis of great toe of [...] this encounter Progress Notes * Tonja Plascencia, OLEOMARGARINE MAKER - 03/27/2020 1330 EDT Infectious Disease Clinic [...] Tonja Plascencia ?? Patient location: [facility] City[place]town, State: [place] Estimated driving distance from [place]: 25 miles. Demographics HPI: Cristy Luo [...] [facility] Adult Primary Care - [address] [phone] Carrington Calderon MD [address] [phone] 02/27/2024 8:30 EDT Telemedicine [facility] Sleep Program - [address] 878611 Dwight Colbert [address] [place] [address] [phone] 02/29/2024 10:30 EDT Appointment [facility] Radiology Nuclear Medicine and PET - [address] [phone] 02/29/2024 14:30 EDT Appointment [facility] Radiology Nuclear Medicine and PET - [address] [phone] 03/01/2024 8:00 EDT Appointment [facility] Radiology Nuclear Medicine and PET - [address] [address] 03/01/2024 9:30 EDT Appointment [facility] Radiology Nuclear Medicine and PET - [address] [address] documented as of this encounter Visit Diagnoses Diagnosis Osteomyelitis of great toe of left foot (HCC-CMS)- Primary documented in this encounter
--- OUTSIDE RECORDS SUMMARY | 2024-02-06 13:38 | XMS_ITS | Encounter Summary ---
Author Organization [facility] Address [address] [place] [address] Care Team Providers Care Line Patrolman Name Role Phone Unavailable Primary Care Provider Unavailabl e Reason for Visit * Reason Comments Toe Injury diabetic foot ulcer on right great toe. admitted in march for IV abx x1week and then d/c with PO abx [id number]. last night noticed swelling, increased pain, redness and drainage from ulcer. dressed prior to arrival. unable to bear weight * Auth/Cert Specialty Diagnoses / Procedures Referred By Contac t Referred To Contact Diagnoses Diabetic foot infection (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) Referral ID Status Reason Start Date Expiration Date Visits Re quested Visits Authorized [id number] 1 1 Encounter Details Date Type Department Care Team (Late st Contact Info) Description 05/03/2020 21:20 EST - 05/04/2020 20:27 [facility] Hospital Encounter [facility] [address] [id number] Fran Barbosa MD 111 [facility], Level 1 [place] [address] Lalito You MD MPH [address] [phone] Obi Hancock MD [address] [phone] Diabetic foot infection (HCC-CMS) (Primary Dx); Type [...] Diagnosis: Sepsis secondary to diabetic foot infection ([facility]) with osteomyelitis Additional Problems Managed in the Hospital Active Hospital Problems Diagnosis Date Noted ??? *Diabetic foot infection ([facility]) 03/06/2020 ??? 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 ([facility]) 05/03/2020 Resolved Hospital Problems No resolved problems [...] lantus (22 units at bedtime) - Continue VENEER PULLER gabapentin 100mg TID Hospital Course: Mrs. Cristy Luo??is a 35 year old??female??with a past medical history notable for insulin-dependent T2DM (c/b peripheral neuropathy and diabetic foot ulcer), recurrent migraine, TERI/MDD admitted 05/03/20 for worsening left foot pain, suspicious for recurrent diabetic foot infection. Of note, patient was recent admitted to [facility] for management of left great toe osteomyelitis between 03/06/20 to 03/12/20. During that time, she was started on cefazolin IV and metronidazole for six weeks. She completed her antibiotic course outpatient on 04/20/20. She complained of no symptoms during that time. On the night of 05/02/20, she noted worsening left foot pain and swelling after spending the day decorating her home for [email or web address]. She subsequently went to the [facility] ED for further evaluation. On admission, [...] Component Value Units Date/Time Bacterial Culture, Blood [[id number]] Collected: 05/04/2040 Lab Status: In process Specimen: Blood, Venous Updated: 05/04/20 0733 Bacterial Culture, Blood [[id number]] Collected: 05/04/2047 Lab Status: In process Specimen: Blood, Venous Updated: 05/04/20 0733 Hemoglobin A1c [[id number]] Collected: 05/03/208 Lab Status: In process Specimen: Blood, Venous Updated: 05/04/20 0043 Upcoming Appointments May 14, 2020 14:30 Office Visit with Elza Navarro DPM [facility] - Paul (--) [facility] [id number] Follow-up appointments and procedures Amb Consult/Follow Up [...] spending the day decorating her home for [email or web address]. On further ROS, she denied F/C/S, N/V/D, [...] lantus (22 units at bedtime) - Continue VENEER PULLER gabapentin 100mg TID # Chronic Migraine - [...] Notes * Sara Banks MD - 05/03/2020 0075 EST Medicine Admission History & Physical Service [...] 12/05/19- Spine- told years ago ??? Diabetes ([facility]) A1c 10.3 on 11/28/2019 ??? History [...] for now: 22U Lantus at bedtime. - VENEER PULLER gabapentin 100mg TID (just started this 3 [...] documented in this encounter Consult Notes * [place], Mushtaq J, DO - 05/04/2020 1059 EST [...] weeks of cefazolin 2gm q8h and PO [id number] q8h, with dressing changes and short-interval podiatry [...] 12/05/19- Spine- told years ago ??? Diabetes ([facility]) A1c 10.3 on 11/28/2019 ??? 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 [...] x1week and then d/c with PO abx [id number]. last night noticed swelling, increased pain, redness [...] afterwards. She is followed by Dr. Navarro, manager environmental. Last night, patient noticed swelling, increased 9/10 [...] limited to diabetic foot infection and osteomyelitis. ([id number]) Paged Orthopedic resident. The patient had a [...] Lalito You. Final diagnoses: Diabetic foot infection ([facility]) MDM MDM Number of Diagnoses or Management Options Diabetic foot infection ([facility]) Diagnosis management comments: 5 Amount and/or [...] 05/04/20202010 EST Data: Pt left AMA d/t children's ministry director issues. Action: notified and spoke to the pt. Response: Pt signed AMA paperwork, left the unit at 2009. LIZZ RUIZ RN 05/04/2020 20:12 * Plan of Care - Jonelle Sun RN - 05/04/2020 1410 EST Problem: Daily Care Plan Goals Goal: Care Plan Documentation Flowsheets (Taken 05/04/2020 0055) Area of Focus: Discharge Plan Goal This [...] Education provided and verbalized back to this press writer by pt, expressing understanding of teaching. [...] Visit [facility] - [address] [phone] Carrington Calderon MD [address] [phone] 02/27/2024 8:30 EDT Telemedicine [facility] - [address] [phone] Dwight Colbert [address] [place] [phone] 02/29/2024 10:30 EDT Appointment [facility] Radiology Nuclear Medicine and PET [address] [phone] 02/29/2024 14:30 EDT Appointment [facility] Radiology Nuclear Medicine and PET [address] [phone] 03/01/2024 8:00 EDT Appointment [facility] Radiology Nuclear Medicine and [address] [phone] 03/01/2024 9:30 EDT Appointment [facility] Radiology Nuclear Medicine and [address] [address] documented as of this encounter Procedures Procedure [...] 03/19/2020, there has been interval increase in [id number] in the first proximal phalanx. There is [...] Growth at 5 days 05/09/2020 7:45 EST [facility] Blood VENOUS BLOOD / Unknown Blood Culture / Unknown 05/04/2020 5:47 EST 05/04/2020 7:33 EST Sara Banks MD MICROBIOLOGY - GENER AL ORDERABLES [facility] [address] [place] [address] * (ABNORMAL) BACTERIAL CULTURE, BLOOD (05/04/2020 5:40 EST) Organism ID Corynebacterium species(AA) 05/06/2020 14:29 [facility] Comment:Detected in the aero bic bottle at 37 hours Blood VENOUS BLOOD / Unknown Blood Culture / Unknown 05/04/2020 5:40 EST 05/04/2020 7:33 EST Sara Banks MD MICROBIOLOGY - GENER AL ORDERABLES Performing Organization Address City/State/[facility] Co de Phone Number [facility] [address] [place] [phone] * (ABNORMAL) COMPLETE BLOOD COUNT (05/04/2020 5:32 EST) WBC 13.43(H) 4.00 - 12.40 K/cmm 05/04/2020 6:24 [facility] RBC 4.27 3.86 - 5.04 M/cmm 05/04/2020 6:24 [facility] Hemoglobin 13.1 11.6 - 15.2 gm/dL 05/04/2020 6:24 [facility] HCT 38.3 34.9 - 44.4 % 05/04/2020 6:24 [facility] MCV 90 81 - 98 fl 05/04/2020 6:24 [facility] MCH 30.7 26.7 - 33.3 pg 05/04/2020 6:24 [facility] MCHC 34.2 32.1 - 35.9 gm/dL 05/04/2020 6:24 [facility] RDW-CV 12.4 <14.7 % 05/04/2020 6:24 [facility] RDW-SD 40.6 <50.4 fl 05/04/2020 6:24 [facility] PLT 335 141 - 377 K/cmm 05/04/2020 6:24 [facility] MPV 10.0 9.5 - 12.7 fl 05/04/2020 6:24 [facility] Blood VENOUS BLOOD / Unknown Venipuncture / Unknown 05/04/2020 5:32 EST 05/04/2020 6:11 EST Lalito You MD MPH HEMATOLOGY & PF4 OR DERABLES Performing Organization Address [facility] de Phone Number [facility] [address] [place] [address] * (ABNORMAL) CREATININE (05/04/2020 5:32 EST) Creatinine 0.46(L) 0.52 - 1.04 mg/dL 05/04/2020 6:52 EST [facility] eGFR 129 >60 mL/min/1.7 3m2 05/04/2020 6:52 EST [facility] Comment:eGFR calculated gil curtis CKD-EPI equation for non- Americans. Multiply eGFR by 1.16 for patients. Blood VENOUS BLOOD / Unknown Venipuncture / Unknown 05/04/2020 5:32 EST 05/04/2020 6:22 EST Lalito You MD MPH CHEMISTRY & BLOOD G ORDERABLES Performing Organization Address [facility] Co de Phone Number [facility] [address] [place] [address] * BUN (05/04/2020 5:32 EST) BUN 17 10 - 26 mg/dL 05/04/2020 6:52 EST [facility] Blood VENOUS BLOOD / Unknown Venipuncture / Unknown 05/04/2020 5:32 EST 05/04/2020 6:22 EST Lalito You MD MPH CHEMISTRY & BLOOD G ORDERABLES Performing Organization Address [facility] de Phone Number [facility] [address] [place] [address] * ELECTROLYTES (05/04/2020 5:32 EST) Sodium 137 136 - 145 mEq/L 05/04/2020 6:52 EST [facility] Potassium 4.4 3.5 - 5.0 mEq/L 05/04/2020 6:52 EST [facility] Chloride 104 96 - 110 mEq/L 05/04/2020 6:52 EST [facility] CO2 Total 24 22 - 32 mEq/L 05/04/2020 6:52 EST [facility] Blood VENOUS BLOOD / Unknown Venipuncture / Unknown 05/04/2020 5:32 EST 05/04/2020 6:22 EST Lalito You MD MPH CHEMISTRY & BLOOD G ORDERABLES Performing Organization Address [facility] Co de Phone Number [facility] [address] [place] [address] * COVID-19 TEST [facility] PCR (05/03/2020 23:59 EST) Swab ENTIRE NASOPHARYNX / Unknown Swab / Unknown 05/03/2020 23:59 EST 05/04/2020 0:01 EST Fran Barbosa MD MICROBIOLOGY - GENERAL ORDERABLES Performing Organization Address [facility] Co de Phone Number [facility] [address] [place] [address] * COVID-19 TESTING (05/03/2020 23:59 EST) COVID-19 rt-PCR Result Negative Negative 05/04/2020 9:49 [facility] Comment: This test has [...] history, and epidemiological information. Performed on the [employer] Fusion instrument Performing Lab [place] [facility] 05/04/2020 9:49 EST [facility] Swab ENTIRE NASOPHARYNX / Unknown Swab / Unknown 05/03/2020 23:59 EST 05/04/2020 0:01 EST Fran Barbosa MD MICROBIOLOGY - GENERAL ORDERABLES [facility] [address] [place] [address] * XR FOOT LEFT 3 OR MORE [...] A1c 9.1(H) <5.7 % 05/05/2020 8:32 EST [facility] Comment: Glycemic Status [...] Avg Glucose 214 mg/dL 0 8:32 EST [facility] Comment:The eAG represents t he A1c result expressed as average glucose in mg/dL. Blood VENOUS BLOOD / Unknown Venipuncture / Unknown 05/03/2020 21:38 EST 05/03/2020 21:55 EST Sara Banks MD CHEMISTRY & BLOOD GA S ORDERABLES [facility] [address] [place] [address] * (ABNORMAL) SED. RATE:WESTERGREN (05/03/2020 21:38 EST) Sed Rate 36(H) 0 - 20 mm/hr 05/03/2020 22:09 EST [facility] Blood VENOUS BLOOD / Unknown Venipuncture / Unknown 05/03/2020 21:38 EST 05/03/2020 21:55 EST Fran Barbosa MD HEMATOLOGY & PF4 ORDERABLES Performing Organization Address City/[facility]/ZIP Co de Phone Number [facility] [address] [place] [address] * (ABNORMAL) C REACTIVE PROTEIN (05/03/2020 21:38 EST) C-Reactive Protein 39.2(H) <10.0 mg/L 05/03/2020 22:19 [facility] Blood VENOUS BLOOD / Unknown Venipuncture / Unknown 05/03/2020 21:38 EST 05/03/2020 21:55 EST Fran Barbosa MD CHEMISTRY & B LOOD GAS ORDERABLES Performing Organization Address [facility] Co de Phone Number [facility] [address] [place] [address] * (ABNORMAL) COMPLETE BLOOD COUNT AND DIFFERENTIAL (05/03/2020 21:38 EST) WBC 16.98(H) 4.00 - 12.40 K/cmm 05/03/2020 22:03 [facility] RBC 4.38 3.86 - 5.04 M/cmm 05/03/2020 22:03 [facility] Hemoglobin 13.7 11.6 - 15.2 gm/dL 05/03/2020 22:03 [facility] HCT 38.9 34.9 - 44.4 % 05/03/2020 22:03 [facility] MCV 89 81 - 98 fl 05/03/2020 22:03 [facility] MCH 31.3 26.7 - 33.3 pg 05/03/2020 22:03 [facility] MCHC 35.2 32.1 - 35.9 gm/dL 05/03/2020 22:03 [facility] RDW-CV 12.5 <14.7 % 05/03/2020 22:03 [facility] RDW-SD 41.1 <50.4 fl 05/03/2020 22:03 [facility] PLT 365 141 - 377 K/cmm 05/03/2020 22:03 [facility] MPV 9.7 9.5 - 12.7 fl 05/03/2020 22:03 [facility] % Neutrophils 56.7 % 05/03/2020 22:03 [facility] % Lymphocytes 29.4 % 05/03/2020 22:03 [facility] % Monocytes 8.8 % 05/03/2020 22:03 [facility] % Eosinophils 4.4 % 05/03/2020 22:03 [facility] % Basophils 0.5 % 05/03/2020 22:03 [facility] % Immature Grans 0.2 % 05/03/20 20 22:03 [facility] Absolute Neutrophils 9.61(H) 2.20 - 8.85 K/cmm 05/03/2020 22:03 [facility] Absolute Lymphocytes 5.00(H) 1.09 - 3.30 K/cmm 05/03/2020 22:03 [facility] Absolute Monocytes 1.49(H) 0.10 - 0.80 K/cmm 05/03/2020 22:03 [facility] Absolute Eosinophils 0.75(H) 0.03 - 0.61 K/cmm 05/03/2020 22:03 [facility] ABS Basophils 0.09 0.01 - 0.11 K/cmm 05/03/2020 22:03 [facility] Absolute Immature Grans 0.04 0.00 - 0.06 K/cmm 05/03/2020 22:03 [facility] Type of Differential: Auto 05/03/2020 22:03 [facility] Blood VENOUS BLOOD / Unknown Venipuncture / Unknown 05/03/2020 21:38 EST 05/03/2020 21:55 EST Fran Barbosa MD PACKAGES & DN A PROBE ORDERABLES [facility] [address] [place] [address] documented in this encounter Visit Diagnoses Diagnosis Diabetic foot infection ([facility]-CMS)- Primary Type II or unspecified type diabetes mellitus with other specified manifestations, not stated as uncontrolled Diabetic foot infection (HCC-CMS) Type II or unspecified type diabetes mellitus with other specified manifestations, not stated as uncontrolled 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 (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) Type II or unspecified type diabetes mellitus [...] 2 mg 1 05/04/2020 polyethylene glycol 3350 (OK RALAX) packet 17 g 1 05/04/2020 Admission Count Last Ordered Date First Orde red Date ADMIT TO INPATIENT 1 05/03/2020 Transfer Count Last Ordered Date First Orde red Date TEACHING SERVICE 1 05/04/2020 ED BED REQUEST 1 05/03/2020 Discharge Count Last Ordered Date First Orde red Date DISCHARGE PATIENT 1 05/04/2020 documented in this encounter
--- OUTSIDE RECORDS SUMMARY | 2024-02-06 13:38 | XMS_ITS | Encounter Summary ---
Author Organization [facility] Address [address] [place] [address] Care Team Providers Care Printer Slotter Feeder Name Role Phone Unavailable Primary Care Provider Unavailabl e Encounter Details Date Type Department Care Team ([facility] Contact Info) Description 03/31/2020 Documentation Visit [facility] - [address] [place], [place] [phone] Mina Peng RN Social History Tobacco Use [...] Notes * Mina Peng, MARCELO - 03/31/2020 0974 EDT Patient: Cristy Luo is a 35 [...] RN 03/31/2020 10:11 * Guido Li [facility] - 03/31/2020 0915 EDT Patient: Cristy Luo is a 35 [...] Will deliver to patients home tomorrow via [employer]. Will continue to monitor per care plan and reassess next week. GUIDO LI RPH 03/31/2020 16:11 documented in this encounter Plan of Treatment Upcoming Encounters Date Type Department Care Team (Late st Contact Info) Description 02/21/2024 9:45 EDT Office Visit [facility] Adult Primary Care - [address] [phone] Carrington Calderon MD 1 [facility] 1 [place] [phone] 02/27/2024 8:30 EDT Telemedicine [facility] Sleep Program - [address] [phone] Dwight Colbert [address] [place] [phone] 02/29/2024 10:30 EDT Appointment [facility] Radiology Nuclear Medicine and PET - [address] [phone] 02/29/2024 14:30 EDT Appointment [facility] Radiology Nuclear Medicine and PET [address] [phone] 03/01/2024 8:00 EDT Appointment [facility] Radiology Nuclear Medicine and PET - [address] [phone] 03/01/2024 9:30 EDT Appointment [facility] Radiology Nuclear Medicine and PET - [address] [phone] documented as of this encounter Visit Diagnoses Not on filedocumented in this encounter
--- OUTSIDE RECORDS SUMMARY | 2024-02-06 13:39 | XMS_ITS | Encounter Summary ---
Author Organization [facility] Address [address] [place] [address] Care Team Providers Care Career Development Associate Name Role Phone Carrington Calderon MD Primary Care Provi anders Reason for Visit * Reason Onset Date Comments Blood Sugar Problem 03/18/2020 low;75 Medication Questions 03/18/2020 insulin Encounter Details Date Type Department Care Team (Late st Contact Info) Description 03/18/2020 Telephone [facility] Endocrinology - [facility] [address] [place] [address] Sara Zafar NP [address] [facility] [address] [place] [address] Blood Sugar Problem (low;75); Medication [...] Visit [facility] Adult Primary Care - [address] [phone] Carrington Calderon MD [address] [phone] 02/27/2024 8:30 EDT Telemedicine [facility] Sleep Program - [address] [phone] Dwight Colbert [address] [place] [phone] 02/29/2024 10:30 EDT Appointment [facility] Radiology Nuclear Medicine and PET - [address] [phone] 02/29/2024 14:30 EDT Appointment [facility] Radiology Nuclear Medicine and PET - [address] [phone] 03/01/2024 8:00 EDT Appointment [facility] Radiology Nuclear Medicine and PET - [address] [phone] 03/01/2024 9:30 EDT Appointment [facility] Radiology Nuclear Medicine and PET - [address] [phone] documented as of this encounter Visit Diagnoses Not on filedocumented in this encounter Additional Health Concerns Infection Onset Date Last Indicated Resolved Time R/O COVID-19 08/04/2020 08/04/2020 08/04/2020 11:4 0 EST documented as of this encounter Care Teams Career Development Associate Relationship Specialty Start Date End Date Carrington Calderon MD 1 [facility] 1 [place] [phone] PCP - General Internal Medicine - Primary Care 12/09/20 documented as of this encounter
--- OUTSIDE RECORDS SUMMARY | 2024-02-06 13:39 | XMS_ITS | Encounter Summary ---
Author Organization [facility] Address [address] [place] [address] Care Team Providers Care Roll On Worker Name Role Phone Unavailable Primary Care Provider Unavailabl e Reason for Visit * Reason Comments Foot Problem * Consult (Routine/Next Available) - Order Cancelled Specialty Diagnoses / Procedures Referred By Kit goode Referred To Contact Orthopedic Surgery Diagnoses Left foot pain Sore on toe Tonja Alejandro PA-C [address] [facility] [address] [facility] [address] [place] [address] [facility] Foot [facility] Ankle [address] [place] [address] Referral ID Status Reason Start Date Expiration Date Visits Requested Visits Authorized [id number] Order Cancelled Specialty Services Required 11/28/2019 1 1 Encounter Details Date Type Department Care Team (Late st Contact Info) Description 01/01/2020 8:[address] [facility] Foot & Ankle [facility] - [facility] [place] [address] Elza Nvaarro DPM [address] [place] [address] Chronic pain of left ankle (Primary Dx); Ulcerated, foot, left, with fat layer exposed ([facility]); Type 2 diabetes mellitus with diabetic polyneuropathy, with long-term current use of insulin ([facility]) Social History Tobacco Use Types Packs/Day [...] the original note were not included. HPI: Crsity Luo is a very pleasant 34 y.o. [...] arthritis 09/04/2015 ??? Type 2 diabetes mellitus ([facility]) 09/03/2015 ??? Anxiety and depression 05/12/2010 ??? Migraine with aura and without status migrainosus, not intractable Past Medical History: Diagnosis Date ??? Anxiety ??? Arthritis 12/05/19- Spine- told years ago ??? Diabetes ([facility]) A1c 10.3 on 11/28/2019 ??? [...] 27 mL 3 ??? lancets One Touch DelNotifixious or other brand compatible with lancing device [...] around the ulcer. Protective sensation absent via [place] monofilament 0 out of 10. Left [...] with speech recognition software or keyboard data collection specialist techniques. Minor irregularities or keyboarding misprints may be present documented in this encounter Plan of Treatment Upcoming Encounters Date Type Department Care Team (Late st Contact Info) Description 02/21/2024 9:45 EDT Office Visit [facility] Adult Primary Care - [address] [id number] Carrington Calderon MD [address] [phone] 02/27/2024 8:30 EDT Telemedicine [facility] Sleep Program - [address] [address] Dwight Colbert [address] [place] [phone] 02/29/2024 10:30 EDT Appointment [facility] Radiology Nuclear Medicine and PET - [address] [id number] 02/29/2024 14:30 EDT Appointment [facility] Radiology Nuclear Medicine and PET [address] [id number] 03/01/2024 8:00 EDT Appointment [facility] Radiology Nuclear Medicine and PET [address] [id number] 03/01/2024 9:30 EDT Appointment [facility] Radiology Nuclear Medicine and PET [address] [id number] documented as of this encounter Procedures Procedure Name Priority Date/Time Associated Diagnosis Comments XR ANKLE LEFT 3 OR MORE VIEWS Routine 01/01/2020 8:53 EDT Chronic pain of left ankle XR FOOT LEFT 3 OR MORE VIEWS Routine 01/01/2020 8:52 EDT Ulcerated, foot, left, with fat layer exposed ([facility]) Type 2 diabetes mellitus with diabetic polyneuropathy, with long-term current use of insulin ([facility]) documented in this encounter Results * XR [...] Left foot MRI 12/05/2019. Procedure Note Zak Myaa, DO - 01/01/2020 EXAM/TECHNIQUE: XR FOOT LEFT [...] Ulcerated, foot, left, with fat layer exposed ([facility]) Type 2 diabetes mellitus with diabetic polyneuropathy, with long-term current use of insulin ([facility]) documented in this encounter Orders Equipment Count Last Ordered Date First Orde red Date GENERIC ORTHO VENDOR DME 1 01/01/2020 documented in this encounter
--- OUTSIDE RECORDS SUMMARY | 2024-02-06 13:39 | XMS_ITS | Encounter Summary ---
Author Organization [facility] Address [address] [place] [address] Care Team Providers Care Mold Repair Technician Name Role Phone Unavailable Primary Care Provider Unavailabl e Reason for Referral * Laboratory Services (Routine/Next Available) - New Request Specialty Diagnoses / Procedures Referred By Contac t Referred To Contact Diagnoses Diabetic foot ulcer ([facility]) Procedures C REACTIVE PROTEIN Mushtaq Light DO [address] [address] Referral ID Status Reason Start Date Expiration Date V isits Requested Visits Authorized [id number] New Request 03/12/2020 1 1 * Laboratory Services (Routine/Next Available) - New Request Specialty Diagnoses / Procedures Referred By Contac t Referred To Contact Diagnoses Diabetic foot ulcer ([facility]) Procedures SED. RATE:Mushtaq Peoples DO [address] [address] Referral ID Status Reason Start Date Expiration Date V isits Requested Visits Authorized [id number] New Request 03/12/2020 1 1 * Laboratory Services (Routine/Next Available) - New Request Specialty Diagnoses / Procedures Referred By Contac t Referred To Contact Diagnoses Diabetic foot ulcer ([facility]) Procedures CREATININE Mushtaq Light DO [address] [address] Referral ID Status Reason Start Date Expiration Date V isits Requested Visits Authorized [id number] New Request 03/12/2020 1 1 * Laboratory Services (Routine/Next Available) - New Request Specialty Diagnoses / Procedures Referred By Kit goode Referred To Contact Diagnoses Diabetic foot ulcer ([facility]) Procedures COMPLETE BLOOD COUNT AND DIFFERENTIAL Mushtaq Light DO [address] [address] Referral ID Status Reason Start Date Expiration Date V isits Requested Visits Authorized [id number] New Request 03/12/2020 1 1 * Follow Up (Routine/Next Available) - Receiving Office to Obtain Authorization Specialty Diagnoses / Procedures Referred By Kit goode Referred To Contact Podiatry Diagnoses Diabetic foot ulcer ([facility]) Carrington Mari MD [address] [place] [address] [facility] Pod[facility] [address] [place] [address] Referral ID Status Reason Start Date Expiration Date Visits Requested Visits Authorized [id number] Receiving Office to Obtain Authorization Specialty Services [...] unspecified part of foot, unspecified ulcer stage ([facility]) Referral ID Status Reason Start Date Expiration Date Visits Re quested Visits Authorized [id number] 1 1 Encounter Details Date Type Department Care Team (Late st Contact Info) Description 03/06/2020 18:11 EDT - 03/12/2020 12:07 EDT Hospital Encounter [place] [address] General Medicine Telemetry Unit [address] [place] [address] [id number] Siobhan Hare PA-C [address] [place] [address] [phone] Elise Charles MD [address] [place] [address] [phone] Carrington Padilla MD [address] [place] [address] [phone] Cal Jenkins MBBS [address] [place] [phone] Nate Henderson MD [address] [place] [address] [phone] Diabetic foot ulcer ([facility]) (Primary Dx); Diabetic foot infection ([facility]); Osteomyelitis of great toe of left foot ([facility]); 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, 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 ([facility]) Discharge Disposition: Home-Health Care Svc Social History [...] of great toe of left foot ([facility]) Additional Problems Managed in the Hospital Active Hospital Problems Diagnosis Date Noted ??? *Osteomyelitis of great toe of left foot ([facility]) 03/12/2020 ??? Diabetic foot ulcer ([facility]) 03/06/2020 Resolved Hospital Problems No resolved problems [...] Units Date/Time Anaerobe Culture/Smear (inc. aerobes), Other [[id number]] (Abnormal) (Susceptibility) Collected: 03/07/20 1421 Lab Status: Preliminary result Specimen: Bone from Toe Updated: 03/10/20 1751 Organism ID Few Staphylococcus aureus Few Streptococcus agalactiae Few Streptococcus anginosus Moderate Prevotella bivia Smear Few Neutrophils Present Few Gram Positive Cocci Upcoming Appointments 2020 9:30 Office Visit with Elza Navarro DPM [facility] Foot [facility] Ankle Program - [place] (--) [address] [facility] [phone] 2020 13:00 Televideo Short with Tonja Plascencia APRN [facility] Infectious Disease [facility] (--) [address] [facility] [address] Mar 27, 2020 13:30 Televideo Short with Tonja Plascencia [facility] Infectious Disease [facility] (--) [address] [facility] [address] Apr 03, 2020 13:30 Televideo Short with Tonja Plascencia [facility] Infectious Disease [facility] (--) [address] [facility] [address] Apr 10, 2020 13:30 Televideo Short with Tonja Plascencia APRN [facility] Infectious Disease [facility] (--) [address] [facility] [address] Apr 16, 2020 9:30 Televideo Short with Mushtaq Light DO [facility] Infectious Disease [facility] (--) [address] [facility] [id number] Discharge Handoff Communication Following information conveyed to [...] Disposition Code Departure Means Destination Home-Health Care [facility] Home documented in this encounter Progress Notes * Nate Henderson MD - 03/11/2020 1810 EDT Medicine Progress Note Admit Date: 03/06/2020 [...] discuss the patient's care with the physician assistant nurse manager. Nate Henderson MD 03/24/2020 12:46 * Elza [...] questions. * Nate Henderson MD - 03/10/2020 9875 EDT Medicine Progress Note Admit Date: 03/06/2020 [...] discuss the patient's care with the physician assistant nurse manager. Nate Henderson MD 03/24/2020 12:48 * Ranulfo Valverde RN - 03/10/2020 4654 EDT Patient for home on IV antibiotic for a long course. Had discussed this with the pt and her spouse as a possibility last week. As of this time the pt isstill in agreement with home IV medication. She has chosen the [facility] and I have called to the Liaison for the [facility] to give a heads up as they will come into the home for reinforcement of teaching of self administration and will also change the dressing on the PICC line as per their agency protocol. Call to the [facility] and they have confirmed that the pt has 100% coverage from Medicaid. No prior auth needed. Awaiting PICC placement and initial infusion of medication and teaching from [facility] once the pt is ready to go back to home. Case Management will follow to transition. Ranulfo Valverde RN [facility] 0430 * Taj Palomares MD - 03/10/2020 [...] Results: Anaerobe Culture/Smear (inc. aerobes), Other (Order [id number]) Abnormal Status: Preliminary result (Collected: 03/07/2020 14:21) [...] 9:34 * Carrington Mari MD - 03/08/2020 8002 EDT Orthopaedic Progress Note for 03/08/20 Pt [...] answer calls. Please direct calls to orthopaedics front desk coordinator resident for further questions. * Aliya Santizo, [facility] - 03/07/2020 7426 EDT Pharmacy Note: Vancomycin Monitoring Cristy Luo [...] REASON FOR ADMISSION: Diabetic foot ulcer ([facility]) Patient understands reason for admission: Yes PATIENT [...] neighbors, Children, Spouse / significant other Is 27/12 care available? Yes ADVANCED DIRECTIVES, POA &/or COLST IN PLACE: Healthcare Directive: No, patient does not have advance directive for healthcare treatment Information Provided on Healthcare Directives: No Information on Healthcare Directives Requested: No DIRECTIVES FOR FINANCES: TRANSPORTATION: Transportation: Family, Self CULTURAL, BAPTIST and/or LANGUAGE factors affecting health [...] Home Health Services: None DME Provider: Pharmacy: [id number] - [facility] [address] [facility] [address] Home Health: Other: POST HOSPITAL TRANSITION PLAN: Have met with the pt and her this day. She just had a debridement and BX. Awaiting results. Pt and her are both working and raising children. 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 Will await results of the BX and the determination regarding need for medication and specifics related to type, and duration and recommendations for mode of delivery. Case Management will follow for transition. This pt has Medicaid and is capable to having home IV medication if needed. Specifics for finances would need to be confirmed from [facility] most likely if IV is indicated. RANULFO VALVERDE RN [facility] 0430 03/07/2020 16:13 * Vicki Phan RN - 03/07/2020 0595 EDT Diabetes Nurse clinician met with Stella for review of SDM handout and diabetes management. SMBG: Checks 3-6 times a day Medications: Lantus and Novolog Diabetes Provider:Sara Andrade Tells me that she has had Diabetes [...] a planning healthy meals folder. Vicki CLARKE counter pocket trimmer Nurse Clinician #[id number] * Valencia Antunez - 03/07/2020 0952 EDT [...] attestation - Adair Martinez PA-C - 03/07/2020 1977 EDT I attest that I have reviewed [...] Notes * Carrington Padilla MD - 03/06/2020 9766 EDT Images from the original note were [...] Spine- told years ago ??? Diabetes ([facility]) A1c 10.3 on 11/28/2019 ??? History of [...] Central Catheter Insertion First Catheter This Session assembler leather goods: Patient Location: M606/M606-02 Preliminary Data: Insertion Date: 03/11/20 Insertion Time: 1353 First Bone Grinder: Nory Ware RN RN/SANDOR Documenting Procedure: Jessika [...] Line Operators: Number Of Operators: 1 First Bone Grinder's Name: Nory Ware RN First Bone Grinder's Title: Vascular meeting specialist Unless otherwise noted, there were no complications, [...] worsening pain and edema and was seen byPCP via telehealth and referred to ED given [...] history of repeated infections. 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 Review of Systems: Remainder of a ten point review of systems was performed and negative. Past Medical History: has a past medical history of Anxiety, Arthritis, Diabetes ([facility]), Historyof general anesthesia, Nausea & vomiting, Obesity, [...] History: . Lives with her and children. 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 Vital Signs: BP 109/66 (BP Cuff Location: [...] lost to follow-up. 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 She is a current smoker and endorses occasional alcohol and marijuana use. Ambulatory status: ambulates without assistive devices Last meal: 12:30 03/07/20 Past Medical History: Diagnosis Date ??? Anxiety ??? Arthritis 12/05/19- Spine- told years ago ??? Diabetes ([facility]) A1c 10.3 on 11/28/2019 ??? 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 [...] T2DM with neuropathy who presents to the [facility] PCP's reccomendation, with increased swelling and [...] care. Final diagnoses: Diabetic foot ulcer ([facility]) This documentation is recorded by Celestina Francis [...] as increased swelling. 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 She [...] Araceli Final diagnoses: Diabetic foot ulcer ([facility]) DISPOSITION: Admitted The patient's pain was managed [...] the Emergency Department: Good PCP: Tonja Alejandro [facility] 03/07/2020 12:09 No flowsheet data found. * Leila Biggs RN - 03/06/2020 2507 EDT TCALL: Stella Luo 10-15-85 Dr. Ferrer [...] Care - Aden Sanz RN - 03/11/2020 1547 EDT Problem: GLYCEMIA IMBALANCE Goal: Clinical Indication [...] care of pt at 0700, pt is Bhupendra/Ox3, admitted with diabetic foot ulcer. Denies pain, [...] Plan Goals Description: D: Patient admitted to [facility] @ 2300. Patient's chief complaint is [...] 03/07/2020 0305 EDT D: Patient admitted to [facility] @ 2300. Patient's chief complaint is a diabetic foot ulcer on left big toe. Pt c/o 610 pain upon arrival to unit. A: Ad[facility] [address] [phone] Carrington Calderon MD 1 [facility] [address] [place] [phone] 02/27/2024 8:30 EDT Telemedicine [facility] Sleep Program - [address] [phone] Dwight Colbert [address] [place] [phone] 02/29/2024 10:[address] [facility] Radiology Nuclear Medicine and PET - [address] [phone] 02/29/2024 14:[address] [facility] Radiology Nuclear Medicine and PET - [address] [address] 03/01/2024 8:[address] [facility] Radiology Nuclear Medicine and PET - [address] [address] 03/01/2024 9:[address] [facility] Radiology Nuclear Medicine and PET - [address] [address] Scheduled Orders Name Type Priority Associated Diagnoses Orde r Schedule COMPLETE BLOOD COUNT AND DIFFERENTIAL Lab Routine Diabetic foot ulcer ([facility]) Ordered: 03/12/2020 CREATININE Lab Routine Diabetic foot ulcer ([facility]) Ordered: 03/12/2020 SED. RATE:WESTERGREN Lab Routine Diabetic foot ulcer ([facility]) Ordered: 03/12/2020 C REACTIVE PROTEIN Lab Routine Diabetic foot ulcer ([facility]) Ordered: 03/12/2020 Scheduled Referrals Name Type Priority Associated Diagnoses Orde r Schedule AMB CONS/FOLLOW UP PODIATRY Outpatient Referral Routine Diabetic foot ulcer ([facility]) Ordered: 03/07/2020 documented as of this [...] EDT) 03/18/2020 10:5 1 EDT Scan 2 Automobile Mechanic Helper PROCEDURE/MINOR BRAULIO GICAL ORDERABLES * ORDERS - SCANNED (03/14/2020 7:54 EDT) 03/14/2020 7:54 EDT Scan 2 Automobile Mechanic Helper ADMISSION ORDERABLE S * (ABNORMAL) POCT GLUCOSE, INTERFACED (03/12/2020 7:40 EDT) Glucose, POC 144(H) 70 - 100 mg/dL 03/12/2020 7:41 EDT [facility] sofa back upholsterer ID [id number] 03/12/2020 7:41 EDT [facility] HN LAB POC COMMENT (GLUCOSE) Test Performed by Nursing Services 03/12/2020 7:41 EDT [facility] Blood CAPILLARY BLOOD / Unknown 03/12/2020 7:40 EDT 03/12/2020 7:41 EDT Catherine Booth MD POINT OF CARE TEST ORDERABLES [facility] [address] [place] [address] * (ABNORMAL) POCT GLUCOSE, INTERFACED (03/11/2020 21:39 EDT) Glucose, POC 210(H) 70 - 100 mg/dL 03/11/2020 21:42 EDT [facility] sofa back upholsterer ID [id number] 03/11/2020 21:42 EDT [facility] HN LAB POC COMMENT (GLUCOSE) Test Performed by Nursing Services 03/11/2020 21:42 EDT [facility] Blood CAPILLARY BLOOD / Unknown 03/11/2020 21:39 EDT 03/11/2020 21:42 EDT Catherine Booth MD POINT OF CARE TEST ORDERABLES Performing Organization Address [facility] Co de Phone Number [facility] [address] [place] [address] * (ABNORMAL) POCT GLUCOSE, INTERFACED (03/11/2020 17:49 EDT) Glucose, POC 151(H) 70 - 100 mg/dL 03/11/2020 17:53 EDT [facility] sofa back upholsterer ID [id number] 03/11/2020 17:53 EDT [facility] HN LAB POC COMMENT (GLUCOSE) Test Performed by Nursing Services 03/11/2020 17:53 EDT [facility] Blood CAPILLARY BLOOD / Unknown 03/11/2020 17:49 EDT 03/11/2020 17:53 EDT Catherine Booth MD POINT OF CARE TEST ORDERABLES Performing Organization Address City/[facility] de Phone Number [facility] [address] [place] [address] * INSERT PICC LINE (03/11/2020 14:00 EDT) Narrative Nory Ware RN - 03/11/2020 14:00 EDT Nory Ware, RN ? 03/11/2020 14:03 Central Catheter Insertion First Catheter This Session ?assembler leather goods: Patient Location: M606/M606-02 Preliminary Data: Insertion Date: 03/11/20 Insertion Time: 1353 First Bone Grinder: Noyr Ware RN RN/MA Documenting Procedure: Jessika Mcdonald [...] Line Operators: Number Of Operators: 1 First Bone Grinder's Name: Nory Ware RN First Bone Grinder's Title: Vascular meeting specialist Unless otherwise noted, there were no complications, no blood loss and no cultures obtained. NORY WARE RN ?? 03/11/2020 ?? 14:01 Jarrett Gutierrez PA-C IV THERAPY ORDERABL ES * (ABNORMAL) POCT GLUCOSE, INTERFACED (03/11/2020 11:57 EDT) Glucose, POC 185(H) 70 - 100 mg/dL 03/11/2020 12:16 EDT [facility] sofa back upholsterer ID [id number] 03/11/2020 12:16 EDT [facility] HN LAB POC COMMENT (GLUCOSE) Test Performed by Nursing Services 03/11/2020 12:16 EDT [facility] Blood CAPILLARY BLOOD / Unknown 03/11/2020 11:57 EDT 03/11/2020 12:16 EDT Catherine Booth MD POINT OF CARE TEST ORDERABLES [facility] [address] [place] [address] * (ABNORMAL) POCT GLUCOSE, INTERFACED (03/11/2020 8:06 EDT) Glucose, POC 110(H) 70 - 100 mg/dL 03/11/2020 14:30 EDT [facility] sofa back upholsterer ID [id number] 03/11/2020 14:30 EDT [facility] HN LAB POC COMMENT (GLUCOSE) Test Performed by Nursing Services 03/11/2020 14:30 EDT [facility] Blood CAPILLARY BLOOD / Unknown 03/11/2020 8:06 EDT 03/11/2020 14:30 EDT Catherine Booth MD POINT OF CARE TEST ORDERABLES Performing Organization Address City/[facility]/ZIP Co de Phone Number [facility] [address] [place] [address] * (ABNORMAL) POCT GLUCOSE, INTERFACED (03/10/2020 21:23 EDT) Glucose, POC 185(H) 70 - 100 mg/dL 03/10/2020 21:26 EDT [facility] sofa back upholsterer ID [id number] 03/10/2020 21:26 EDT [facility] HN LAB POC COMMENT (GLUCOSE) Test Performed by Nursing Services 03/10/2020 21:26 EDT [facility] Blood CAPILLARY BLOOD / Unknown 03/10/2020 21:23 EDT 03/10/2020 21:26 EDT Catherine Booth MD POINT OF CARE TEST ORDERABLES [facility] [address] [place] [address] * (ABNORMAL) POCT GLUCOSE, INTERFACED (03/10/2020 18:42 EDT) Glucose, POC 154(H) 70 - 100 mg/dL 03/10/2020 18:47 EDT [facility] sofa back upholsterer ID [id number] 03/10/2020 18:47 EDT [facility] HN LAB POC COMMENT (GLUCOSE) Test Performed by Nursing Services 03/10/2020 18:47 EDT [facility] Blood CAPILLARY BLOOD / Unknown 03/10/2020 18:42 EDT 03/10/2020 18:47 EDT Catherine Booth MD POINT OF CARE TEST ORDERABLES Performing Organization Address [facility] Co de Phone Number [facility] [address] [place] [address] * (ABNORMAL) POCT GLUCOSE, INTERFACED (03/10/2020 12:24 EDT) Glucose, POC 149(H) 70 - 100 mg/dL 03/10/2020 12:26 EDT [facility] sofa back upholsterer ID [id number] 03/10/2020 12:26 EDT [facility] HN LAB POC COMMENT (GLUCOSE) Test Performed by Nursing Services 03/10/2020 12:26 EDT [facility] Blood CAPILLARY BLOOD / Unknown 03/10/2020 12:24 EDT 03/10/2020 12:26 EDT Catherine Booth MD POINT OF CARE TEST ORDERABLES Performing Organization Address [facility]/ZIP Co de Phone Number [facility] [address] [place] [address] * (ABNORMAL) POCT GLUCOSE, INTERFACED (03/10/2020 8:33 EDT) Glucose, POC 126(H) 70 - 100 mg/dL 03/10/2020 8:39 EDT [facility] sofa back upholsterer ID [id number] 03/10/2020 8:39 EDT [facility] HN LAB POC COMMENT (GLUCOSE) Test Performed by Nursing Services 03/10/2020 8:39 EDT [facility] Blood CAPILLARY BLOOD / Unknown 03/10/2020 8:33 EDT 03/10/2020 8:39 EDT Catherine Booth MD POINT OF CARE TEST ORDERABLES Performing Organization Address City/[facility]/ZIP Co de Phone Number [facility] [address] [place] [address] * ELECTROLYTES (03/10/2020 7:01 EDT) Sodium 141 136 - 145 mEq/L 03/10/2020 8:04 EDT [facility] Potassium 4.6 3.5 - 5.0 mEq/L 03/10/2020 8:04 EDT [facility] Chloride 103 96 - 110 mEq/L 03/10/2020 8:04 EDT [facility] CO2 Total 29 22 - 32 mEq/L 03/10/2020 8:04 EDT [facility] Blood VENOUS BLOOD / Unknown Venipuncture / Unknown 03/10/2020 7:01 EDT 03/10/2020 7:35 EDT Adair Martinez PA-C CHEMISTRY & BLOOD GAS ORDERABLES [facility] [address] [place] [address] * (ABNORMAL) COMPLETE BLOOD COUNT (03/10/2020 7:01 EDT) WBC 12.33 4.00 - 12.40 K/cmm 03/10/2020 7:42 EDT [facility] RBC 4.61 3.86 - 5.04 M/cmm 03/10/2020 7:42 T [facility] Hemoglobin 14.1 11.6 - 15.2 gm/dL 03/10/2020 7:42 EDT [facility] HCT 41.4 34.9 - 44.4 % 03/10/2020 7:42 EDT [facility] MCV 90 81 - 98 fl 03/10/2020 7:42 EDT [facility] MCH 30.6 26.7 - 33.3 pg 03/10/2020 7:42 EDT [facility] MCHC 34.1 32.1 - 35.9 gm/dL 03/10/2020 7:42 EDT [facility] RDW-CV 12.3 <14.7 % 03/10/2020 7:42 EDT [facility] RDW-SD 40.3 <50.4 fl 03/10/2020 7:42 EDT [facility] PLT 424(H) 141 - 377 K/cmm 03/10/2020 7:42 EDT [facility] MPV 9.8 9.5 - 12.7 fl 03/10/2020 7:42 EDT [facility] Blood VENOUS BLOOD / Unknown Venipuncture / Unknown 03/10/2020 7:01 EDT 03/10/2020 7:35 EDT Adair Martinez PA-C HEMATOLOGY & PF4 O RDERABLES Performing Organization Address [facility] Co de Phone Number [facility] [address] [place] [address] * (ABNORMAL) CREATININE (03/10/2020 7:01 EDT) Creatinine 0.50(L) 0.52 - 1.04 mg/dL 03/10/2020 8:04 EDT [facility] eGFR 127 >60 mL/min/1.7 3m2 03/10/2020 8:04 EDT [facility] Comment:eGFR calculated gil curtis CKD-EPI equation for non- Americans. Multiply eGFR by 1.16 for patients. Blood VENOUS BLOOD / Unknown Venipuncture / Unknown 03/10/2020 7:01 EDT 03/10/2020 7:35 EDT Adair Martinez PA-C CHEMISTRY & BLOOD GAS ORDERABLES Performing Organization Address [facility]/ZIP Co de Phone Number [facility] [address] [place] [address] * (ABNORMAL) POCT GLUCOSE, INTERFACED (03/09/2020 22:50 EDT) Glucose, POC 150(H) 70 - 100 mg/dL 03/09/2020 22:51 EDT [facility] sofa back upholsterer ID [id number] 03/09/2020 22:51 EDT [facility] HN LAB POC COMMENT (GLUCOSE) Test Performed by Nursing Services 03/09/2020 22:51 EDT [facility] Blood CAPILLARY BLOOD / Unknown 03/09/2020 22:50 EDT 03/09/2020 22:51 EDT Catherine Booth MD POINT OF CARE TEST ORDERABLES Performing Organization Address City/State/[facility] Co de Phone Number [facility] [address] [place] [address] * MR FOOT W WO CONTRAST LEFT [...] 70 - 100 mg/dL 03/09/2020 17:22 EDT [facility] sofa back upholsterer ID [id number] 03/09/2020 17:22 EDT [facility] HN LAB POC COMMENT (GLUCOSE) Test Performed by Nursing Services 03/09/2020 17:22 EDT [facility] Blood CAPILLARY BLOOD / Unknown 03/09/2020 17:21 EDT 03/09/2020 17:22 EDT Catherine Booth MD POINT OF CARE TEST ORDERABLES Performing Organization Address [facility] Co de Phone Number [facility] [address] [place] [address] * (ABNORMAL) POCT GLUCOSE, INTERFACED (03/09/2020 13:23 EDT) Glucose, POC 178(H) 70 - 100 mg/dL 03/09/2020 13:24 EDT [facility] sofa back upholsterer ID [id number] 03/09/2020 13:24 EDT [facility] HN LAB POC COMMENT (GLUCOSE) Test Performed by Nursing Services 03/09/2020 13:24 EDT [facility] Blood CAPILLARY BLOOD / Unknown 03/09/2020 13:23 EDT 03/09/2020 13:24 EDT Catherine Booth MD POINT OF CARE TEST ORDERABLES Performing Organization Address City/[facility]/ZIP Co de Phone Number [facility] [address] [place] [address] * (ABNORMAL) POCT GLUCOSE, INTERFACED (03/09/2020 8:38 EDT) Glucose, POC 108(H) 70 - 100 mg/dL 03/09/2020 8:43 EDT [facility] sofa back upholsterer ID [id number] 03/09/2020 8:43 EDT [facility] HN LAB POC COMMENT (GLUCOSE) Test Performed by Nursing Services 03/09/2020 8:43 EDT [facility] Blood CAPILLARY BLOOD / Unknown 03/09/2020 8:38 EDT 03/09/2020 8:43 EDT Catherine Booth MD POINT OF CARE TEST ORDERABLES [facility] [address] [place] [address] * (ABNORMAL) POCT GLUCOSE, INTERFACED (03/08/2020 20:52 EDT) Glucose, POC 122(H) 70 - 100 mg/dL 03/08/2020 20:58 EDT [facility] sofa back upholsterer ID [id number] 03/08/2020 20:58 EDT [facility] HN LAB POC COMMENT (GLUCOSE) Test Performed by Nursing Services 03/08/2020 20:58 EDT [facility] Blood CAPILLARY BLOOD / Unknown 03/08/2020 20:52 EDT 03/08/2020 20:58 EDT Catherine Booth MD POINT OF CARE TEST ORDERABLES Performing Organization Address City/[facility]/ZIP Co de Phone Number [facility] [address] [place] [address] * POCT GLUCOSE, INTERFACED (03/08/2020 17:44 EDT) Glucose, POC 99 70 - 100 mg/dL 03/08/2020 17:44 EDT [facility] sofa back upholsterer ID [id number] 03/08/2020 17:44 EDT [facility] HN LAB POC COMMENT (GLUCOSE) Test Performed by Nursing Services 03/08/2020 17:44 EDT [facility] Blood CAPILLARY BLOOD / Unknown 03/08/2020 17:44 EDT 03/08/2020 17:44 EDT Catherine Booth MD POINT OF CARE TEST ORDERABLES [facility] [address] [place] [address] * (ABNORMAL) POCT GLUCOSE, INTERFACED (03/08/2020 13:15 EDT) Glucose, POC 142(H) 70 - 100 mg/dL 03/08/2020 13:16 EDT [facility] sofa back upholsterer ID [id number] 03/08/2020 13:16 EDT [facility] HN LAB POC COMMENT (GLUCOSE) Test Performed by Nursing Services 03/08/2020 13:16 EDT [facility] Blood CAPILLARY BLOOD / Unknown 03/08/2020 13:15 EDT 03/08/2020 13:16 EDT Catherine Booth MD POINT OF CARE TEST ORDERABLES Performing Organization Address [facility] Co de Phone Number [facility] [address] [place] [address] * (ABNORMAL) POCT GLUCOSE, INTERFACED (03/08/2020 7:45 EDT) Glucose, POC 176(H) 70 - 100 mg/dL 03/08/2020 7:47 EDT [facility] sofa back upholsterer ID [id number] 03/08/2020 7:47 EDT [facility] HN LAB POC COMMENT (GLUCOSE) Test Performed by Nursing Services 03/08/2020 7:47 EDT [facility] Blood CAPILLARY BLOOD / Unknown 03/08/2020 7:45 EDT 03/08/2020 7:47 EDT Catherine Booth MD POINT OF CARE TEST ORDERABLES Performing Organization Address [facility]/ZIP Co de Phone Number [facility] [address] [place] [address] * (ABNORMAL) CREATININE (03/08/2020 7:20 EDT) Creatinine 0.42(L) 0.52 - 1.04 mg/dL 03/08/2020 9:12 EDT [facility] eGFR 134 >60 mL/min/1.7 3m2 03/08/2020 9:12 EDT [facility] Comment:eGFR calculated usin g CKD-EPI equation for non- Americans. Multiply eGFR by 1.16 for patients. Blood VENOUS BLOOD / Unknown Venipuncture / Unknown 03/08/2020 7:20 EDT 03/08/2020 8:43 EDT Adair DAWSON-C CHEMISTRY & BLOOD GAS ORDERABLES Performing Organization Address [facility] Co de Phone Number [facility] [address] [place] [address] * ELECTROLYTES (03/08/2020 7:20 EDT) Sodium 139 136 - 145 mEq/L 03/08/2020 9:12 EDT [facility] Potassium 4.6 3.5 - 5.0 mEq/L 03/08/2020 9:12 EDT [facility] Chloride 105 96 - 110 mEq/L 03/08/2020 9:12 EDT [facility] CO2 Total 25 22 - 32 mEq/L 03/08/2020 9:12 EDT [facility] Blood VENOUS BLOOD / Unknown Venipuncture / Unknown 03/08/2020 7:20 EDT 03/08/2020 8:43 EDT Adair WOLFFC CHEMISTRY & BLOOD GAS ORDERABLES Performing Organization Address [facility] Co de Phone Number [facility] [address] [place] [address] * (ABNORMAL) COMPLETE BLOOD COUNT (03/08/2020 7:20 EDT) WBC 11.24 4.00 - 12.40 K/cmm 03/08/2020 8:25 EDT [facility] RBC 4.29 3.86 - 5.04 M/cmm 03/08/2020 8:25 EDT [facility] Hemoglobin 13.2 11.6 - 15.2 gm/dL 03/08/2020 8:25 EDT [facility] HCT 37.9 34.9 - 44.4 % 03/08/2020 8:25 EDT [facility] MCV 88 81 - 98 fl 03/08/2020 8:25 EDT [facility] MCH 30.8 26.7 - 33.3 pg 03/08/2020 8:25 EDT [facility] MCHC 34.8 32.1 - 35.9 gm/dL 03/08/2020 8:25 EDT [facility] RDW-CV 12.3 <14.7 % 03/08/2020 8:25 EDT [facility] RDW-SD 39.5 <50.4 fl 03/08/2020 8:25 EDT [facility] PLT 406(H) 141 - 377 K/cmm 03/08/2020 8:25 EDT [facility] MPV 9.9 9.5 - 12.7 fl 03/08/2020 8:25 EDT [facility] Blood VENOUS BLOOD / Unknown Venipuncture / Unknown 03/08/2020 7:20 EDT 03/08/2020 8:11 EDT Adair Martinez PA-C HEMATOLOGY & PF4 O RDERABLES [facility] [address] [place] [address] * VANCOMYCIN TROUGH (03/07/2020 21:29 EDT) [facility] Vancomycin Trough 13.0 10.0 - 20.0 ug/mlL 03/07/2020 22:02 EDT [facility] Draw Type Not Given 03/07/2020 22:02 EDT [facility] Blood VENOUS BLOOD / Unknown Venipuncture / Unknown 03/07/2020 21:29 EDT 03/07/2020 21:33 EDT Cal GARIBAY CHEMISTRY & BLOOD GAS ORDERABLES [facility] [address] [place] [address] * (ABNORMAL) POCT GLUCOSE, INTERFACED (03/07/2020 21:25 EDT) Glucose, POC 105(H) 70 - 100 mg/dL 03/07/2020 21:30 EDT [facility] sofa back upholsterer ID [id number] 03/07/2020 21:30 EDT [facility] HN LAB POC COMMENT (GLUCOSE) Test Performed by Nursing Services 03/07/2020 21:30 EDT [facility] Blood CAPILLARY BLOOD / Unknown 03/07/2020 21:25 EDT 03/07/2020 21:30 EDT Catherine Booth MD POINT OF CARE TEST ORDERABLES [facility] [address] [place] [address] * (ABNORMAL) POCT GLUCOSE, INTERFACED (03/07/2020 17:40 EDT) Glucose, POC 196(H) 70 - 100 mg/dL 03/07/2020 18:59 EDT [facility] sofa back upholsterer ID [id number] 03/07/2020 18:59 EDT [facility] HN LAB POC COMMENT (GLUCOSE) Test Performed by Nursing Services 03/07/2020 18:59 EDT [facility] Blood CAPILLARY BLOOD / Unknown 03/07/2020 17:40 EDT 03/07/2020 18:59 EDT Catherine Booth MD POINT OF CARE TEST ORDERABLES Performing Organization Address City/[facility]/ZIP Co de Phone Number [facility] [address] [place] [address] * (ABNORMAL) ANAEROBE CULTURE/SMEAR(INC. AEROBES), OTHER (03/07/2020 14:21 EDT) Organism ID Few Staphylococcus aureus(A) 03/13/2020 7:50 EDT [facility] Comment:Susceptible to nafci llin, cephalosporins and other beta lactam antibiotics (mecA gene product absent). Organism ID Few Streptococcus agalactiae(A) 03/13/2020 7:50 EDT [facility] Comment:Penicillin and ampic illin are drugs of choice for treatment of beta hemolytic streptococcal infections. Organism ID Few Streptococcus anginosus(A) 03/13/2020 7:50 EDT [facility] Organism ID Moderate Prevotella bivia(A) 03/13/2020 7:50 EDT [facility] Smear Few Neutrophils Present(A) 03/13/2020 7:50 EDT [facility] Smear Few Gram Positive Cocci(A) 03/13/2020 7:50 EDT [facility] Bone ENTIRE TOE / [...] ug/mL: Susceptible Adair Martinez PA-C MICROBIOLOGY - GEN ERAL ORDERABLES [facility] [address] [place] [address] * XR FOOT LEFT 3 OR MORE [...] 70 - 100 mg/dL 03/07/2020 12:26 EDT [facility] sofa back upholsterer ID [id number] 03/07/2020 12:26 EDT [facility] HN LAB POC COMMENT (GLUCOSE) Test Performed by Nursing Services 03/07/2020 12:26 EDT [facility] Blood CAPILLARY BLOOD / Unknown 03/07/2020 12:23 EDT 03/07/2020 12:26 EDT Cal GARIBAY POINT OF CAR E TEST ORDERABLES [facility] [address] [place] [address] * (ABNORMAL) POCT GLUCOSE, INTERFACED (03/07/2020 11:11 EDT) Glucose, POC 187(H) 70 - 100 mg/dL 03/07/2020 11:21 EDT [facility] sofa back upholsterer ID [id number] 03/07/2020 11:21 EDT [facility] HN LAB POC COMMENT (GLUCOSE) Test Performed by Nursing Services 03/07/2020 11:21 EDT [facility] Blood CAPILLARY BLOOD / Unknown 03/07/2020 11:11 EDT 03/07/2020 11:21 EDT Catherine Booth MD POINT OF CARE TEST ORDERABLES Performing Organization Address City/[facility]/ZIP Co de Phone Number [facility] [address] [place] [address] * (ABNORMAL) POCT GLUCOSE, INTERFACED (03/07/2020 7:37 EDT) Glucose, POC 157(H) 70 - 100 mg/dL 03/07/2020 7:41 EDT [facility] sofa back upholsterer ID [id number] 03/07/2020 7:41 EDT [facility] HN LAB POC COMMENT (GLUCOSE) Test Performed by Nursing Services 03/07/2020 7:41 EDT [facility] Blood CAPILLARY BLOOD / Unknown 03/07/2020 7:37 EDT 03/07/2020 7:41 EDT Catherine Booth MD POINT OF CARE TEST ORDERABLES [facility] [address] [place] [address] * ELECTROLYTES (03/07/2020 7:02 EDT) Sodium 138 136 - 145 mEq/L 03/07/2020 8:22 EDT [facility] Potassium 4.2 3.5 - 5.0 mEq/L 03/07/2020 8:22 EDT [facility] Chloride 103 96 - 110 mEq/L 03/07/2020 8:22 EDT [facility] CO2 Total 27 22 - 32 mEq/L 03/07/2020 8:22 EDT [facility] Blood VENOUS BLOOD / Unknown Venipuncture / Unknown 03/07/2020 7:02 EDT 03/07/2020 7:46 EDT Catherine Booth MD CHEMISTRY & BLOOD GAS ORDERABLES Performing Organization Address City/[facility] Co de Phone Number [facility] [address] [place] [address] * (ABNORMAL) CREATININE (03/07/2020 7:02 EDT) Creatinine 0.44(L) 0.52 - 1.04 mg/dL 03/07/2020 8:22 EDT [facility] eGFR 132 >60 mL/min/1.7 3m2 03/07/2020 8:22 EDT [facility] Comment:eGFR calculated gil curtis CKD-EPI equation for non- Americans. Multiply eGFR by 1.16 for patients. Blood VENOUS BLOOD / Unknown Venipuncture / Unknown 03/07/2020 7:02 EDT 03/07/2020 7:46 EDT Catherine Booth MD CHEMISTRY & BLOOD GAS ORDERABLES Performing Organization Address City/[facility]/ZIP Co de Phone Number [facility] [address] [place] [address] * BUN (03/07/2020 7:02 EDT) BUN 10 10 - 26 mg/dL 03/07/2020 8:22 EDT [facility] Blood VENOUS BLOOD / Unknown Venipuncture / Unknown 03/07/2020 7:02 EDT 03/07/2020 7:46 EDT Catherine Booth MD CHEMISTRY & BLOOD GAS ORDERABLES [facility] [address] [place] [address] * (ABNORMAL) COMPLETE BLOOD COUNT (03/07/2020 7:02 EDT) Pathologist [facility] WBC 11.29 4.00 - 12.40 K/cmm 03/07/2020 7:55 EDT [facility] RBC 4.29 3.86 - 5.04 M/cmm 03/07/2020 7:55 EDT [facility] Hemoglobin 13.0 11.6 - 15.2 gm/dL 03/07/2020 7:55 EDT [facility] HCT 37.2 34.9 - 44.4 % 03/07/2020 7:55 EDT [facility] MCV 87 81 - 98 fl 03/07/2020 7:55 EDT [facility] MCH 30.3 26.7 - 33.3 pg 03/07/2020 7:55 EDT [facility] MCHC 34.9 32.1 - 35.9 gm/dL 03/07/2020 7:55 EDT [facility] RDW-CV 12.2 <14.7 % 03/07/2020 7:55 EDT [facility] RDW-SD 38.5 <50.4 fl 03/07/2020 7:55 EDT [facility] PLT 387(H) 141 - 377 K/cmm 03/07/2020 7:55 EDT [facility] MPV 10.0 9.5 - 12.7 fl 03/07/2020 7:55 EDT [facility] Blood VENOUS BLOOD / Unknown Venipuncture / Unknown 03/07/2020 7:02 EDT 03/07/2020 7:49 EDT Catherine Booth MD HEMATOLOGY & PF4 O RDERABLES [facility] [address] [place] [address] * (ABNORMAL) POCT GLUCOSE, INTERFACED (03/06/2020 23:53 EDT) Glucose, POC 262(H) 70 - 100 mg/dL 03/06/2020 23:57 EDT [facility] sofa back upholsterer ID [id number] 03/06/2020 23:57 EDT [facility] HN LAB POC COMMENT (GLUCOSE) Test Performed by Nursing Services 03/06/2020 23:57 EDT [facility] Blood CAPILLARY BLOOD / Unknown 03/06/2020 23:53 EDT 03/06/2020 23:57 EDT Carrington Padilla MD POINT OF CARE TEST ORDERABLES Performing Organization Address City/[facility]/ZIP Co de Phone Number [facility] [address] [place] [address] * COVID-19 TEST [facility] PCR (03/06/2020 22:00 EDT) Swab ENTIRE NASOPHARYNX / Unknown Swab / Unknown 03/06/2020 22:00 EDT 03/06/2020 22:05 EDT Siobhan Hare PA-C MICROBIOLOGY - GENERAL ORDERABLES Performing Organization Address City/[facility]/ZIP Co de Phone Number [facility] [address] [place] [address] * COVID-19 TESTING (03/06/2020 22:00 EDT) Pathologist [facility] COVID-19 rt-PCR Result Negative Negative 03/07/2020 1:27 EDT [facility] Comment: This test has [...] history, and epidemiological information. Performed on the [employer] [place] Fusion instrument Performing Lab [place] [facility] 03/07/2020 1:27 EDT [facility] Swab ENTIRE NASOPHARYNX / Unknown Swab / Unknown 03/06/2020 22:00 EDT 03/06/2020 22:05 EDT Siobhan Hare PA-C MICROBIOLOGY - GENERAL ORDERABLES [facility] [address] [place] [address] * (ABNORMAL) FRUCTOSAMINE (03/06/2020 19:26 EDT) Fructosamine, S 360(H) 200 - 285 mcmol/L 03/09/2020 8:44 EDT [facility] Comment: Test Performed by: [facility] [place] [address] Bunch Breaker: Wiley Fry M.D. Ph.D.; CLIA# [id number] Blood VENOUS BLOOD / Unknown Venipuncture / Unknown 03/06/2020 19:26 EDT 03/06/2020 19:48 EDT Catherine Booth MD CHEMISTRY & BLOOD GAS ORDERABLES Performing Organization Address [facility] Co de Phone Number [facility] [address] [place] [id number] * (ABNORMAL) HEMOGLOBIN A1C (03/06/2020 19:26 EDT) Hemoglobin A1c 10.4(H) <5.7 % 03/07/2020 8:23 EDT [facility] Comment: Glycemic Status [...] Avg Glucose 252 mg/dL 0 8:23 EDT [facility] Comment:The eAG represents t he A1c result expressed as average glucose in mg/dL. Blood VENOUS BLOOD / Unknown Venipuncture / Unknown 03/06/2020 19:26 EDT 03/06/2020 19:48 EDT Catherine Booth MD CHEMISTRY & BLOOD GAS ORDERABLES Performing Organization Address [facility] Co de Phone Number [facility] [address] [place] [address] * (ABNORMAL) SED. RATE:WESTERGREN (03/06/2020 19:26 EDT) Sed Rate 25(H) 0 - 20 mm/hr 03/06/2020 23:03 EDT [facility] Blood VENOUS BLOOD / Unknown Venipuncture / Unknown 03/06/2020 19:26 EDT 03/06/2020 19:48 EDT Siobhan Hare PA-C HEMATOLOGY & PF4 ORDERABLES Performing Organization Address City/[facility]/ZIP Co de Phone Number [facility] [address] [place] [address] * (ABNORMAL) C REACTIVE PROTEIN (03/06/2020 19:26 EDT) C-Reactive Protein 27.7(H) <10.0 mg/L 03/06/2020 20:12 EDT [facility] Blood VENOUS BLOOD / Unknown Venipuncture / Unknown 03/06/2020 19:26 EDT 03/06/2020 19:48 EDT Siobhan Hare PA-C CHEMISTRY & BLOOD GAS ORDERABLES [facility] [address] [place] [address] * (ABNORMAL) COMPREHENSIVE METABOLIC PANEL (CMP) (03/06/2020 19:26 EDT) Sodium 139 136 - 145 mEq/L 03/06/2020 20:12 [facility] Potassium 4.2 3.5 - 5.0 mEq/L 03/06/2020 20:12 [facility] Chloride 101 96 - 110 mEq/L 03/06/2020 20:12 [facility] CO2 Total 27 22 - 32 mEq/L 03/06/2020 20:12 [facility] Glucose 186(H) 70 - 100 mg/dL 03/06/2020 20:12 [facility] BUN 13 10 - 26 mg/dL 03/06/2020 20:12 [facility] Creatinine 0.49(L) 0.52 - 1.04 mg/dL 03/06/2020 20:12 [facility] eGFR 128 >60 mL/min/1.7 3m2 03/06/2020 20:12 [facility] Comment:eGFR calculated gil curtis CKD-EPI equation for non- Americans. Multiply eGFR by 1.16 for patients. Total Protein 7.4 6.3 - 8.2 g/dL 03/06/2020 20:12 [facility] Albumin 4.2 3.4 - 4.9 g/dL 03/06/2020 20:12 [facility] Alkaline Phosphatase 108 38 - 126 U/L 03/06/2020 20:12 [facility] AST 18 15 - 46 U/L 03/06/2020 20:12 [facility] ALT 12 <35 U/L 03/06/2020 20:12 [facility] Bilirubin, Total <0.5 <1.4 mg/dL 03/06/20 20 20:12 [facility] Calcium 9.9 8.5 - 10.5 mg/dL 03/06/2020 20:12 T [facility] Calculated Calcium 9.7 8.5 - 10.5 mg/dL 03/06/2020 20:12 [facility] Blood VENOUS BLOOD / Unknown Venipuncture / Unknown 03/06/2020 19:26 EDT 03/06/2020 19:48 EDT Siobhan Hare PA-C CHEMISTRY & BLOOD GAS ORDERABLES [facility] [address] [place] [address] * (ABNORMAL) COMPLETE BLOOD COUNT AND DIFFERENTIAL (03/06/2020 19:26 EDT) WBC 16.83(H) 4.00 - 12.40 K/cmm 03/06/2020 19:57 [facility] RBC 4.66 3.86 - 5.04 M/cmm 03/06/2020 19:57 [facility] Hemoglobin 14.1 11.6 - 15.2 gm/dL 03/06/2020 19:57 [facility] HCT 40.6 34.9 - 44.4 % 03/06/2020 19:57 [facility] MCV 87 81 - 98 fl 03/06/2020 19:57 [facility] MCH 30.3 26.7 - 33.3 pg 03/06/2020 19:57 [facility] MCHC 34.7 32.1 - 35.9 gm/dL 03/06/2020 19:57 [facility] RDW-CV 12.2 <14.7 % 03/06/2020 19:57 [facility] RDW-SD 39.2 <50.4 fl 03/06/2020 19:57 [facility] PLT 458(H) 141 - 377 K/cmm 03/06/2020 19:57 [facility] MPV 9.7 9.5 - 12.7 fl 03/06/2020 19:57 [facility] % Neutrophils 62.7 % 03/06/2020 19:57 [facility] % Lymphocytes 27.5 % 03/06/2020 19:57 [facility] % Monocytes 6.8 % 03/06/2020 19:57 [facility] % Eosinophils 2.2 % 03/06/2020 19:57 [facility] % Basophils 0.4 % 03/06/2020 19:57 [facility] % Immature Grans 0.4 % 03/06/20 20 19:57 [facility] Absolute Neutrophils 10.55(H) 2.20 - 8.85 K/cmm 03/06/2020 19:57 [facility] Absolute Lymphocytes 4.62(H) 1.09 - 3.30 K/cmm 03/06/2020 19:57 [facility] Absolute Monocytes 1.15(H) 0.10 - 0.80 K/cmm 03/06/2020 19:57 [facility] Absolute Eosinophils 0.37 0.03 - 0.61 K/cmm 03/06/2020 19:57 [facility] ABS Basophils 0.07 0.01 - 0.11 K/cmm 03/06/2020 19:57 [facility] Absolute Immature Grans 0.07(H) 0.00 - 0.06 K/cmm 03/06/2020 19:57 [facility] Type of Differential: Auto 03/06/2020 19:57 [facility] Blood VENOUS BLOOD / Unknown Venipuncture / Unknown 03/06/2020 19:26 EDT 03/06/2020 19:48 EDT Siobhan Hare PA-C PACKAGES & D NA PROBE ORDERABLES [facility] [address] [place] [address] documented in this encounter Visit Diagnoses Diagnosis Osteomyelitis of great toe of left foot (HCC-CMS)- Primary Diabetic foot ulcer ([facility]-CMS) [...] Provider: Aden Sanz RN)1614 (Given - Provider: dAen Sanz RN) 0038 (Given - Provider: Mallorie Hayward RN)0844 (Given - Provider: Aden Sanz RN)1608 (Given - Provider: Quincy Huston, RN) 0103 (Given - Provider: Mallorie Hayward RN)0837 (Given - Provider: Jesica Sandy RN) enoxaparin (LOVENOX) injection 40 mg 40 mg, subcutaneous, DAILY, First dose (after last modification) on Tue03/07/20 at 0900, Until Discontinued, Routine 0859 (Given - Provider: Aden Sanz RN) 0844 (Given - Provider: Aden Sanz RN) 0838 (Given - Provider: Jesica Sandy, MARCELO) insulin aspart U-100 (NOVOLOG FLEXPEN) injection 9 [...] Hayward RN) 0843 (Given - Provider: Aden Sanz RN) metroNIDAZOLE (FLAGYL) tablet 500 mg 500 mg, [...] oral, EVERY 4 HOURS PRN, Starting on Renee 03/06/20 at 2242, Until Tue03/12/20 at 1407, Pain, [...]
--- OUTSIDE RECORDS SUMMARY | 2024-02-06 13:39 | XMS_ITS | Encounter Summary ---
Author Organization [facility] Address [address] [place] [address] Care Team Providers Care Research Methods Instructor Name Role Phone Unavailable Primary Care Provider Unavailabl e Reason for Visit * Reason Onset Date Comments Results 12/05/2019 Encounter Details Date Type Department Care Team (Late st Contact Info) Description 12/05/2019 Telephone [facility] Adult Primary Care - [address] [phone] Tonja Alejandro PA-C [address] [place] [address] [place] [phone] Results Social History Tobacco Use Types [...] Encounter - Tonja Alejandro PA-C - 12/05/2019 4998 EDT I spoke with patient regarding MRI [...] the mild cellulitis. She will contact her OPERATOR RECEPTIONIST and inform this of them as she [facility] [address] 330491 Carrington Calderon MD [address] [address] 02/27/2024 8:30 EDT Telemedicine [facility] Sleep Program - [address] 492771 Dwight Colbert [address] [place] [address] [phone] 02/29/2024 10:30 EDT Appointment [facility] Radiology Nuclear Medicine and PET [address] [id number] 02/29/2024 14:30 EDT Appointment [facility] Radiology Nuclear Medicine and PET [address] [id number] 03/01/2024 8:00 EDT Appointment [facility] Radiology Nuclear Medicine and PET - [address] [phone] 03/01/2024 9:30 EDT Appointment [facility] Radiology Nuclear Medicine and PET [address] [phone] documented as of this encounter Visit Diagnoses Not on filedocumented in this encounter
--- OUTSIDE RECORDS SUMMARY | 2024-02-06 13:39 | XMS_ITS | Encounter Summary ---
Author Organization [facility] Address [address] [place] [address] Care Team Providers Care Freight Broker Name Role Phone Unavailable Primary Care Provider [facility] - [address] 530261 Carrington Calderon MD [address] [address] 02/27/2024 8:30 EDT Telemedicine [facility] Sleep Program - [address] 773321 Dwight Colbert [address] [place] [address] 338331 02/29/2024 10:[address] [facility] Radiology Nuclear Medicine and PET [address] [id number] 02/29/2024 14:[address] [facility] Radiology Nuclear Medicine and PET [address] [id number] 03/01/2024 8:[address] [facility] Radiology Nuclear Medicine and PET [address] [phone] 03/01/2024 9:[address] [facility] Radiology Nuclear Medicine and PET [address] 353161 documented as of this encounter Visit Diagnoses Not on filedocumented in this encounter
--- OUTSIDE RECORDS SUMMARY | 2024-02-06 13:39 | XMS_ITS | Encounter Summary ---
Author Organization [facility] Address [address] [place] [address] Care Team Providers Care Semiconductor Wafers Marker Name Role Phone Unavailable Primary Care Provider Unavailabl e Encounter Details Date Type Department Care Team ([facility] Contact Info) Description 03/13/2020 Documentation Visit [facility] Home Infusion Pharmacy - [address] [place] [address] Natasha Crook, RN [address] [place] [address] Social History Tobacco Use Types Packs/Day Years [...] [facility] Adult Primary Care - [address] [phone] Carrington Calderon MD 1 [facility] [place] [facility] 1 [place] [phone] 02/27/2024 8:30 EDT Telemedicine [facility] Sleep Program - [address] [place] [address] Sayra Dwight [address] [place] [address] 02/29/2024 10:30 EDT [facility] Radiology Nuclear Medicine and PET - [address] [phone] 02/29/2024 14:30 EDT Appointment [facility] Radiology Nuclear Medicine and PET - [address] [id number] 03/01/2024 8:00 EDT Appointment [facility] Radiology Nuclear Medicine and PET - [address] [phone] 03/01/2024 9:30 EDT Appointment [facility] Radiology Nuclear Medicine and PET - [address] [phone] documented as of this encounter Visit Diagnoses Not on filedocumented in this encounter
--- OUTSIDE RECORDS SUMMARY | 2024-02-06 13:39 | XMS_ITS | Encounter Summary ---
Author Organization [facility] Address [address] [place] [address] Care Team Providers Care Butcher Head Name Role Phone Unavailable Primary Care Provider Unavailabl e Encounter Details Date Type Department Care Team ([facility] Contact Info) Description 03/17/2020 Documentation Visit [facility] Home Infusion Pharmacy - [address] [place], [place] [address] Marcel Bustamante Social History Tobacco Use Types [...] MORALES RN 03/17/2020 14:59 * [place], [facility] - 03/17/2020 1217 EDT Patient: Cristy Luo [...] [facility] Adult Primary Care - [address] [phone] Carrington Calderon MD [address] [address] 02/27/2024 8:30 EDT Telemedicine [facility] Sleep Program - [address] [phone] Dwight Colbert [address] [place] [address] [phone] 02/29/2024 10:30 EDT [facility]ointment [facility] Radiology Nuclear Medicine and PET - [address] [address] 02/29/2024 14:30 EDT [facility]ointment [facility] Radiology Nuclear Medicine and PET - [address] [phone] 03/01/2024 8:00 EDT [facility]ointment [facility] Radiology Nuclear Medicine and PET - [address] [phone] 03/01/2024 9:30 EDT [facility] PET [address] [phone] documented as of this encounter Visit Diagnoses Not on filedocumented in this encounter
--- OUTSIDE RECORDS SUMMARY | 2024-02-06 13:39 | XMS_ITS | Encounter Summary ---
Author Organization [facility] Address [address] [place] [address] Care Team Providers Care Snorkelling Instructor Name Role Phone Unavailable Primary Care Provider Unavailabl e Reason for Visit * Reason Comments Telemedicine Video Visit Sore left great toe Foot Swelling Encounter Details Date Type Department Care Team (Late st Contact Info) Description 03/06/2020 16:00 EDT Telemedicine [facility] Adult Primary Care - [address] [address] Moshe Ferrer MD 1 [facility] Level 1 [place] [phone] Cellulitis of great toe of left foot [...] with a trained counselor. Tobacco Counseling in [facility] offers free counseling services to residents who are ready to cut back or quit using tobacco. Services include: phone coaching (4-846-PEOT-NOW), online tools and support for those who would like to make changes on their own (www.Synbiota.org), as well as in-person group workshops. Free nicotine replacement therapy is available through all of these resources. To learn more about your options visit www.WhoGotStuffQuWinking Entertainment.org or call 5-037-IHPD-NOW ( ). To speak with an in-person tobacco counselor in [facility] call, [phone]. [place] Resident, please visit: https://www.IntegenX/ I hope you quit smoking. I think [...] and depression ??? Type 2 diabetes mellitus ([facility]) ??? Chronic left ear pain ??? Family [...] infection can be identified. Moshe Ferrer MD saw sharpener The concept of ???Telemedicine?? has been described [...] or mental health care. Moshe Ferrer MD saw sharpener documented in this encounter Plan of Treatment Upcoming Encounters Date Type Department Care Team (Late st Contact Info) Description 02/21/2024 9:45 EDT Office Visit [facility] Adult Primary Care - [address] 301281 Carrington Calderon MD [address] [address] 02/27/2024 8:30 EDT Telemedicine [facility] Sleep Program - [address] [address] Dwight Colbert [address] [place] [address] [phone] 02/29/2024 10:30 EDT [facility]ment [facility] Radiology Nuclear Medicine and PET - [address] 702181 02/29/2024 14:30 EDT Appointment [facility] Radiology Nuclear Medicine and PET - [address] 423691 03/01/2024 8:00 EDT Appointment [facility] Radiology Nuclear Medicine and PET - [address] 885991 03/01/2024 9:30 EDT Appointment [facility] Radiology Nuclear [place] [address] documented as of this encounter Visit Diagnoses Diagnosis Cellulitis of great toe of left foot- Primary Cellulitis and abscess of toe, unspecified documented in this encounter
--- OUTSIDE RECORDS SUMMARY | 2024-02-06 13:39 | XMS_ITS | Encounter Summary ---
Author Organization [facility] Address [address] [place] [address] Care Team Providers Care Finance Manager Name Role Phone Unavailable Primary Care Provider Unavailabl e Reason for Visit * Reason Onset Date Comments Wound Infection 03/04/2020 Toe Pain 03/04/2020 Encounter Details Date Type Department Care Team (Late st Contact Info) Description 03/04/2020 Telephone [facility] Adult Primary Care [address] [address] Tonja Alejandro PA-C [address] [place] [address] [place] [phone] Wound Infection; Toe Pain Social History [facility] - [address] [address] Carrington Calderon MD 1 [facility] 1 [place] [address] 02/27/2024 8:30 EDT Telemedicine [facility] Sleep Program - [address] [address] Dwight Colbert [address] [place] [address] 02/29/2024 10:30 EDT Appointment [facility] Radiology Nuclear Medicine and PET [address] 539241 02/29/2024 14:30 EDT Appointment [facility] Radiology Nuclear Medicine and PET [address] [id number] 03/01/2024 8:00 EDT Appointment [facility] Radiology Nuclear Medicine and PET [address] 264841 03/01/2024 9:30 EDT Appointment [facility] Radiology Nuclear Medicine and PET [address] 335111 documented as of this encounter Visit Diagnoses Not on filedocumented in this encounter
--- OUTSIDE RECORDS SUMMARY | 2024-02-06 13:39 | XMS_ITS | Encounter Summary ---
Author Organization [facility] Address [address] [place] [address] Care Team Providers Care Slime Plant Operator Helper Name Role Phone Unavailable Primary Care Provider Unavailabl e Reason for Visit * Reason Onset Date Comments Coordination Of Care 03/12/2020 Encounter Details Date Type Department Care Team (Late st Contact Info) Description 03/12/2020 Telephone [facility] Adult Primary Care - [address] 133411 Tonja [facility] PA-C [facility] [address] [place] [phone] Coordination Of Care Social History Tobacco [...] [facility] - [address] [phone] Carrington Calderon MD [address] [address] 02/27/2024 8:30 EDT Telemedicine [facility] Sleep Program - [address] [phone] Dwight Colbert [address] [place] [address] [phone] 02/29/2024 10:30 EDT Appointment [facility] Radiology Nuclear Medicine and PET [address] [phone] 02/29/2024 14:30 EDT Appointment [facility] Radiology Nuclear Medicine and PET [address] 327251 03/01/2024 8:00 EDT Appointment [facility] Radiology Nuclear Medicine and PET [address] 922201 03/01/2024 9:30 EDT Appointment [facility] Radiology Nuclear Medicine and PET [address] [phone] documented as of this encounter Visit Diagnoses Not on filedocumented in this encounter
--- OUTSIDE RECORDS SUMMARY | 2024-02-06 13:39 | XMS_ITS | Encounter Summary ---
Author Organization [facility] Address [address] [place] [address] Care Team Providers Care Form Tamper Name Role Phone Unavailable Primary Care Provider Unavailabl e Reason for Visit * Reason Onset Date Comments Follow-up 03/05/2020 Encounter Details Date Type Department Care Team (Late st Contact Info) Description 03/05/2020 Telephone [facility] Adult Primary Care - [address] [phone] Tonja Alejandro PA-C [employer] [facility] [address] [place] [phone] Follow-up Social History Tobacco Use Types [...] [facility] [place] [facility] Care - [address] 568171 Carrington Calderon MD 1 [facility] 1 [place] [address] 02/27/2024 8:30 EDT Telemedicine [facility] Sleep Program - [address] 941241 Dwight Colbert [address] [place] [address] 484351 02/29/2024 10:30 EDT Appointment [facility] Radiology Nuclear Medicine and PET - [address] [phone] 02/29/2024 14:30 EDT Appointment [facility] Radiology Nuclear Medicine and PET - [address] [id number] 03/01/2024 8:00 EDT Appointment [facility] Radiology Nuclear Medicine and PET - [address] [phone] 03/01/2024 9:30 EDT Appointment [facility] Radiology Nuclear Medicine and PET - [address] 556881 documented as of this encounter Visit Diagnoses Not on filedocumented in this encounter
--- OUTSIDE RECORDS SUMMARY | 2024-02-06 13:39 | XMS_ITS | Encounter Summary ---
Author Organization [facility] Address [address] [place] [address] Care Team Providers Care Windows Software Engineer Name Role Phone Unavailable Primary Care Provider Unavailabl e Encounter Details Date Type Department Care Team ([facility] Contact Info) Description 03/11/2020 Documentation Visit [facility] Home Infusion Pharmacy - [address] [place], [place] [address] Marcel Bustamante Social History Tobacco Use Types [...] infusion service. Medication Order Review Admission Criteria: Cultural/sikh barriers to home infusion therapy: No Language other than Bulgarian: No Vision, speech, hearing, or cognitive impairment: [...] Home Health Agency Contact Info: DANAY Reardon ([phone] or [phone]) Laboratory Contacts: [facility] [phone] Referral Source: Nurse/Human Intelligence Plan: Initial teach completed with Stella for [...] MARCEL BUSTAMANTE 03/11/2020 15:07 * Mily Ovalle, [facility] - 03/11/2020 1795 EDT Patient: Cristy Luo is a 34 [...] nurse assessment. Plan: Begin home infusion therapy. ROAD ENGINEER FREIGHT nurse to see patient for administration of first home dose. Mixed and sent enough drug and supplies through 03/19/20. Delivery to [facility] for patient to roll picker at discharge. Anticipated end date 04/20/20. Follow up with patient via telephone within first week of therapy. Monitor labs per care plan weekly. MILY OVALLE RPH 03/17/2020 15:00 documented in this encounter Plan of Treatment Upcoming Encounters Date Type Department Care Team (Late st Contact Info) Description 02/21/2024 9:45 EDT Office Visit [facility] Adult Primary Care - [address] 646211 Carrington Calderon MD [address] [address] 02/27/2024 8:30 EDT Telemedicine [facility] Sleep Program - [address] 163371 Dwight Colbert [address] [place] [address] [phone] 02/29/2024 10:30 EDT Appointment [facility] Radiology Nuclear Medicine and PET [address] [id number] 02/29/2024 14:30 EDT Appointment [facility] Radiology Nuclear Medicine and PET [address] [id number] 03/01/2024 8:00 EDT Appointment [facility] Radiology Nuclear Medicine and PET - [address] 624551 03/01/2024 9:30 EDT Appointment [facility] Radiology Nuclear Medicine and PET [address] [phone] documented as of this encounter Visit Diagnoses Not on filedocumented in this encounter
--- OUTSIDE RECORDS SUMMARY | 2024-02-06 13:39 | XMS_ITS | Encounter Summary ---
Author Organization [facility] Address [address] [place] [address] Care Team Providers Care Automobile Body Worker Name Role Phone Unavailable Primary Care [...] Visit [facility] Adult Primary Care - [address] 442781 Carrington Calderon MD [address] [address] 02/27/2024 8:30 EDT Telemedicine [facility] Sleep Program - [address] [address] Dwight Colbert [address] [place] [address] [phone] 02/29/2024 10:30 EDT Appointment [facility] Radiology Nuclear Medicine and PET [address] [phone] 02/29/2024 14:30 EDT Appointment [facility] Radiology Nuclear Medicine and PET [address] [id number] 03/01/2024 8:00 EDT Appointment [facility] Radiology Nuclear Medicine and PET [address] 139111 03/01/2024 9:30 EDT Appointment [facility] Radiology Nuclear Medicine and PET [address] 431161 documented as of this encounter Visit Diagnoses Not on filedocumented in this encounter
--- OUTSIDE RECORDS SUMMARY | 2024-02-06 13:39 | XMS_ITS | Encounter Summary ---
Author Organization [facility] Address [address] [place] [address] Care Team Providers Care Nanosystems Engineer Name Role Phone Carrington Calderon MD Primary Care Provi anders Abigail Díaz Unavailable Carmelo Hendrickson Unavailable Unavailable Abigail Díaz Unavailable [phone] Encounter Details Date Type Department Care Team (Late st Contact Info) Description 03/18/2020 Lab Requisition [facility] Pathology & Laboratory Medicine - [address] [phone] Mushtaq Light, DO 111 [facility], Level 5 [place] [phone] Encounter for other general examination Social History [...] [facility] - [address] 106391 Carrington Calderon MD 1 [facility] 1 [place] [phone] 02/27/2024 8:30 EDT Telemedicine [facility] Sleep Program - [address] [phone] Dwight Colbert [address] [place] [address] 02/29/2024 10:30 EDT Appointment [facility] Radiology Nuclear Medicine and PET [address] [id number] 02/29/2024 14:30 EDT Appointment [facility] Radiology Nuclear Medicine and PET [address] [phone] 03/01/2024 8:00 EDT Appointment [facility] Radiology Nuclear Medicine and PET [address] [phone] 03/01/2024 9:30 EDT Appointment [facility] Radiology Nuclear Medicine and PET [address] [phone] documented as of this encounter Procedures Procedure [...] 0 - 20 mm/hr 03/18/2020 18:51 EDT [facility] Comment:Note: Sample greater than 4 hours old (but less than 12 hours) when tested. If refrigerated, sample is stable when tested within 12 hours of collection. Blood VENOUS BLOOD / Unknown Non-Lab Collect / Unknown 03/18/2020 10:35 EDT 03/18/2020 16:41 EDT Mushtaq Light DO HEMATOLOGY & PF4 OR DERABLES [facility] [address] [place] [address] * (ABNORMAL) COMPLETE BLOOD COUNT AND DIFFERENTIAL (03/18/2020 10:35 EDT) WBC 11.64 4.00 - 12.40 K/cmm 03/18/2020 17:17 [facility] RBC 4.54 3.86 - 5.04 M/cmm 03/18/2020 17:17 [facility] Hemoglobin 13.9 11.6 - 15.2 gm/dL 03/18/2020 17:17 [facility] HCT 40.9 34.9 - 44.4 % 03/18/2020 17:17 [facility] MCV 90 81 - 98 fl 03/18/2020 17:17 [facility] MCH 30.6 26.7 - 33.3 pg 03/18/2020 17:17 [facility] MCHC 34.0 32.1 - 35.9 gm/dL 03/18/2020 17:17 [facility] RDW-CV 12.4 <14.7 % 03/18/2020 17:17 [facility] RDW-SD 40.8 <50.4 fl 03/18/2020 17:17 [facility] PLT 462(H) 141 - 377 K/cmm 03/18/2020 17:17 [facility] MPV 10.5 9.5 - 12.7 fl 03/18/2020 17:17 [facility] % Neutrophils 55.0 % 03/18/2020 17:17 [facility] % Lymphocytes 33.0 % 03/18/2020 17:17 [facility] % Monocytes 7.4 % 03/18/2020 17:17 [facility] % Eosinophils 3.4 % 03/18/2020 17:17 [facility] % Basophils 0.7 % 03/18/2020 17:17 [facility] % Immature Grans 0.5 % 03/18/20 20 17:17 [facility] Absolute Neutrophils 6.41 2.20 - 8.85 K/cmm 03/18/2020 17:17 [facility] Absolute Lymphocytes 3.84(H) 1.09 - 3.30 K/cmm 03/18/2020 17:17 [facility] Absolute Monocytes 0.86(H) 0.10 - 0.80 K/cmm 03/18/2020 17:17 [facility] Absolute Eosinophils 0.39 0.03 - 0.61 K/cmm 03/18/2020 17:17 [facility] ABS Basophils 0.08 0.01 - 0.11 K/cmm 03/18/2020 17:17 [facility] Absolute Immature Grans 0.06 0.00 - 0.06 K/cmm 03/18/2020 17:17 [facility] Type of Differential: Auto 03/18/2020 17:17 [facility] Blood VENOUS BLOOD / Unknown Non-Lab Collect / Unknown 03/18/2020 10:35 EDT 03/18/2020 16:41 EDT Mushtaq Light DO PACKAGES & DNA PROB E ORDERABLES [facility] [address] [place] [address] * (ABNORMAL) CREATININE (03/18/2020 10:35 EDT) Creatinine 0.41(L) 0.52 - 1.04 mg/dL 03/18/2020 17:17 [facility] eGFR 135 >60 mL/min/1.7 3m2 03/18/2020 17:17 [facility] Comment:eGFR calculated gil curtis CKD-EPI equation for non- Americans. Multiply eGFR by 1.16 for patients. Blood VENOUS BLOOD / Unknown Non-Lab Collect / Unknown 03/18/2020 10:35 EDT 03/18/2020 16:41 EDT Mushtaq Light DO CHEMISTRY & BLOOD G ORDERABLES Performing Organization Address City/[facility]/ZIP Co de Phone Number [facility] [address] [place] [address] * C REACTIVE PROTEIN (03/18/2020 10:35 EDT) C-Reactive Protein <7.0 <10.0 mg/L 03/18/2020 17:17 EDT [facility] Blood VENOUS BLOOD / Unknown Non-Lab Collect / Unknown 03/18/2020 10:35 EDT 03/18/2020 16:41 EDT Mushtaq Light DO CHEMISTRY & BLOOD G ORDERABLES Performing Organization Address City/[facility] Co de Phone Number [facility] [address] [place] [address] documented in this encounter Visit Diagnoses Diagnosis Encounter for other general examination documented in this encounter Additional Health Concerns Infection Onset Date Last Indicated Resolved Time R/O COVID-19 08/04/2020 08/04/2020 08/04/2020 11:4 0 EST documented as of this encounter Care Teams Nanosystems Engineer Relationship Specialty Start Date End Date Carrington Calderon MD 1 [facility] 1 [place] [address] PCP - General Internal Medicine - Primary Care 12/09/20 Abigail Díaz Button Buttonhole Marker 04/21/23 01/03/24 Carmelo Hendrickson Coordinator 12/01/23 Abigail Díaz Button Buttonhole Marker 01/04/24 documented as of this encounter
--- OUTSIDE RECORDS SUMMARY | 2024-02-06 13:39 | XMS_ITS | Encounter Summary ---
Author Organization [facility] Address [address] [place] [address] Care Team Providers Care Railway Equipment Operator Name Role Phone Unavailable Primary Care Provider Unavailabl e Encounter Details Date Type Department Care Team (Late st Contact Info) Description 01/03/2020 Orders Only [facility] Adult Primary Care - [address] [phone] Tonja Alejandro PA-C [address] [place] [address] [place] [phone] Social History Tobacco Use Types Packs/Day [...] Notes * Tonja Alejandro PA-C - 01/03/2020 3799 EDT Spoke with patient. She will get [...] [facility] - [address] 039561 Carrington Calderon MD 1 [facility] 1 [place] [phone] 02/27/2024 8:30 EDT Telemedicine [facility] Sleep Program - [address] 214551 [phone] Dwight Colbert [address] [place] [address] 02/29/2024 10:[address] [facility] Radiology Nuclear Medicine and PET - [address] [address] 02/29/2024 14:30 EDT Appointment [facility] Radiology Nuclear Medicine and PET [address] [address] 03/01/2024 8:00 EDT Appointment [facility] Radiology Nuclear Medicine and PET [address] 158001 03/01/2024 9:30 EDT Appointment [facility] Radiology Nuclear Medicine and PET [address] [address] documented as of this encounter Visit Diagnoses [...]
--- OUTSIDE RECORDS SUMMARY | 2024-02-06 13:39 | XMS_ITS | Encounter Summary ---
Author Organization 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 * Diabetic Foot Ulcer (Kiswahili) documented in this encounter Medications at Time [...] Code Departure Means Destination Home or Self Assisted documented in this encounter ED Notes * [...] conditions at the [facility] on 03/04/2020 Scribe Attestation: This documentation [...] Stable * Eryn Lunsford RN - 03/04/2020 6137 EDT Patient to ED with c/o worsening [...] [facility] - [address] 094511 Carrington Calderon MD [address] [phone] 02/27/2024 8:30 EDT Telemedicine [facility] Sleep Program - [address] 299121 Dwight Colbert [address] [place] [address] [phone] 02/29/2024 10:[address] [facility] Radiology Nuclear Medicine and PET [address] [phone] 02/29/2024 14:[address] [facility] Radiology Nuclear Medicine and [address] [phone] 03/01/2024 8:[address] [facility] Radiology Nuclear Medicine and PET [address] [phone] 03/01/2024 9:[address] [facility] Radiology Nuclear Medicine and PET [address] [phone] documented as of this encounter Procedures Procedure [...] fascia. Type II osnaviculare. Scott Harrington MD [facility] DIAGNOSTIC IMAGI NG ORDERABLES * XR TOE [...] ofthe great toe noted. Scott Harrington MD [facility] DIAGNOSTIC IMAGI NG ORDERABLES * BACTERIAL CULTURE, BLOOD (03/04/2020 15:20 EDT) Organism ID No Growth at 5 days 03/09/2020 15:45 EDT [facility] Blood VENOUS BLOOD / Unknown Blood Culture / Unknown 03/04/2020 15:20 EDT 03/04/2020 15:38 EDT Scott Harrington MD MICROBIOLOGY - GENER AL ORDERABLES Performing Organization Address [facility] Co de Phone Number [facility] [address] [place] [address] * (ABNORMAL) GLUCOSE, SERUM (03/04/2020 15:03 EDT) Glucose 273(H) 70 - 100 mg/dL 03/04/2020 15:40 EDT [facility] Blood VENOUS BLOOD / Unknown Venipuncture / Unknown 03/04/2020 15:03 EDT 03/04/2020 15:11 EDT Scott Harrington MD CHEMISTRY & BLOOD GA S ORDERABLES Performing Organization Address [facility] de Phone Number [facility] [address] [place] [address] * (ABNORMAL) CREATININE (03/04/2020 15:03 EDT) Creatinine 0.41(L) 0.52 - 1.04 mg/dL 03/04/2020 15:40 EDT [facility] eGFR 135 >60 mL/min/1.7 3m2 03/04/2020 15:40 EDT [facility] Comment:eGFR calculated gil curtis CKD-EPI equation for non- Americans. Multiply eGFR by 1.16 for patients. Blood VENOUS BLOOD / Unknown Venipuncture / Unknown 03/04/2020 15:03 EDT 03/04/2020 15:11 EDT Scott Harrington MD CHEMISTRY & BLOOD GA S ORDERABLES Performing Organization Address [facility]/ZIP Co de Phone Number [facility] [address] [place] [address] * BUN (03/04/2020 15:03 EDT) [facility] BUN 13 10 - 26 mg/dL 03/04/2020 15:43 EDT [facility] Comment: Slight hemolysis identified, interpret with caution as results may be affected due to hemolysis. Blood VENOUS BLOOD / Unknown Venipuncture / Unknown 03/04/2020 15:03 EDT 03/04/2020 15:11 EDT Scott Harrington MD CHEMISTRY & BLOOD GA S ORDERABLES [facility] [address] [place] [address] * ELECTROLYTES (03/04/2020 15:03 EDT) [facility] Sodium 140 136 - 145 mEq/L 03/04/2020 15:43 EDT [facility] Potassium 4.3 3.5 - 5.0 mEq/L 03/04/2020 15:43 EDT [facility] Comment: Slight hemolysis identified, interpret with caution as hemolysis will elevate potassium result. NOTE: Interpret with caution. Prolonged sample storage may alter the result. Chloride 99 96 - 110 mEq/L 03/04/2020 15:43 EDT [facility] CO2 Total 30 22 - 32 mEq/L 03/04/2020 15:43 EDT [facility] Comment: NOTE: Interpret with caution. Prolonged sample storage may alter the result. Blood VENOUS BLOOD / Unknown Venipuncture / Unknown 03/04/2020 15:03 EDT 03/04/2020 15:11 EDT Scott Harrington MD CHEMISTRY & BLOOD GA S ORDERABLES Performing Organization Address City/[facility]/ZIP Co de Phone Number [facility] [address] [place] [address] * (ABNORMAL) SED. RATE:WESTERGREN (03/04/2020 15:03 EDT) [facility] Sed Rate 54(H) 0 - 20 mm/hr 03/04/2020 16:19 EDT [facility] Blood VENOUS BLOOD / Unknown Venipuncture / Unknown 03/04/2020 15:03 EDT 03/04/2020 15:11 EDT Scott Harrington MD HEMATOLOGY & PF4 ORD ERABLES Performing Organization Address [facility] Co de Phone Number [facility] [address] [place] [address] * (ABNORMAL) C REACTIVE PROTEIN (03/04/2020 15:03 EDT) C-Reactive Protein 33.5(H) <10.0 mg/L 03/04/2020 15:40 EDT [facility] Blood VENOUS BLOOD / Unknown Venipuncture / Unknown 03/04/2020 15:03 EDT 03/04/2020 15:11 EDT Scott Harrington MD CHEMISTRY & BLOOD GA S ORDERABLES Performing Organization Address [facility] de Phone Number [facility] [address] [place] [address] * (ABNORMAL) COMPLETE BLOOD COUNT (03/04/2020 15:03 EDT) WBC 14.64(H) 4.00 - 12.40 K/cmm 03/04/2020 15:30 EDT [facility] RBC 4.58 3.86 - 5.04 M/cmm 03/04/2020 15:30 EDT [facility] Hemoglobin 14.1 11.6 - 15.2 gm/dL 03/04/2020 15:30 EDT [facility] HCT 40.0 34.9 - 44.4 % 03/04/2020 15:30 EDT [facility] MCV 87 81 - 98 fl 03/04/2020 15:30 EDT [facility] MCH 30.8 26.7 - 33.3 pg 03/04/2020 15:30 EDT [facility] MCHC 35.3 32.1 - 35.9 gm/dL 03/04/2020 15:30 EDT [facility] RDW-CV 12.3 <14.7 % 03/04/2020 15:30 EDT [facility] RDW-SD 39.5 <50.4 fl 03/04/2020 15:30 EDT [facility] PLT 414(H) 141 - 377 K/cmm 03/04/2020 15:30 EDT [facility] MPV 9.8 9.5 - 12.7 fl 03/04/2020 15:30 EDT [facility] Blood VENOUS BLOOD / Unknown Venipuncture / Unknown 03/04/2020 15:03 EDT 03/04/2020 15:11 EDT Scott Harrington MD HEMATOLOGY & PF4 ORD ERABLES [facility] [address] [place] [address] * HOLD SST (03/04/2020 15:03 EDT) Hold Hold 03/04/2020 16:15 EDT [facility] Blood VENOUS BLOOD / Unknown Venipuncture / Unknown 03/04/2020 15:03 EDT 03/04/2020 15:11 EDT Mayank Cruz MD LAB INFO SERVICE AND SUPPORT & PHONE RESULT Performing Organization Address City/[facility]/ZIP Co de Phone Number [facility] [address] [place] [address] * HOLD LAVENDER TOP (03/04/2020 15:03 EDT) Hold Hold 03/04/2020 16:15 EDT [facility] Blood VENOUS BLOOD / Unknown Venipuncture / Unknown 03/04/2020 15:03 EDT 03/04/2020 15:11 EDT Mayank Cruz MD LAB INFO SERVICE AND SUPPORT & PHONE RESULT Performing Organization Address City/[facility]/ZIP Co de Phone Number [facility] [address] [place] [address] * HOLD GREEN TOP (03/04/2020 15:03 EDT) Hold Hold 03/04/2020 16:15 EDT [facility] Blood VENOUS BLOOD / Unknown Venipuncture / Unknown 03/04/2020 15:03 EDT 03/04/2020 15:11 EDT Mayank Cruz MD LAB INFO SERVICE AND SUPPORT & PHONE RESULT [facility] [address] [place] [address] * HOLD BLUE TOP (03/04/2020 15:03 EDT) Hold Hold 03/04/2020 16:15 EDT [facility] Blood VENOUS BLOOD / Unknown Venipuncture / Unknown 03/04/2020 15:03 EDT 03/04/2020 15:11 EDT Mayank Cruz MD LAB INFO SERVICE AND SUPPORT & PHONE RESULT Performing Organization Address City/[facility] Co de Phone Number [facility] [address] [place] [address] documented in this encounter Visit Diagnoses Diagnosis 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
--- OUTSIDE RECORDS SUMMARY | 2024-02-06 13:39 | XMS_ITS | Encounter Summary ---
Author Organization [facility] Address [address] [place] [address] Care Team Providers Care Logistics Planning Manager Name Role Phone Unavailable Primary Care Provider Unavailabl e Encounter Details Date Type Department Care Team (Late st Contact Info) Description 03/18/2020 Orders Only [facility] Endocrinology - [facility] [address] [place] [address] Sara Zafar, GUSTAVO 62 [facility] [address] [place] [address] Type 2 diabetes mellitus with hyperglycemia, with long-term current use of insulin ([facility]) (Primary Dx) Social History Tobacco [...] [facility] Adult Primary Care - [address] [phone] Carrington Calderon MD 1 [facility] 1 [place] [phone] 02/27/2024 8:30 EDT Telemedicine [facility] Sleep Program - [address] [phone] Dwight Colbert [address] [place] [address] [phone] 02/29/2024 10:30 EDT [facility] Rad[facility] Nuclear Medicine and PET - [address] [address] 02/29/2024 14:30 EDT [facility]ointment [facility] Radiology Nuclear Medicine and PET - [address] [address] 03/01/2024 8:00 EDT Appointment [facility] Radiology Nuclear Medicine and PET - [address] [address] 03/01/2024 9:30 EDT Appointment [facility] Radiology Nuclear Medicine and PET - [address] [address] documented as of this encounter Visit Diagnoses Diagnosis Type 2 diabetes mellitus with hyperglycemia, with long-term current use of insulin ([facility])- Primary documented in this encounter
--- OUTSIDE RECORDS SUMMARY | 2024-02-06 13:39 | XMS_ITS | Encounter Summary ---
Author Organization [facility] Address [address] [place] [address] Care Team Providers Care White Metal Corrosion Proofer Name Role Phone Unavailable Primary Care Provider Unavailabl e Reason for Visit * Reason Onset Date Comments Update 12/06/2019 Encounter Details Date Type Department Care Team (Late st Contact Info) Description 12/06/2019 Telephone [facility] Gynecologic Oncology - [address] [phone] Charu Flynn MD 111 [facility], Level 4 [place] [address] Update Social History Tobacco Use [facility] - [address] 769101 Carrington Calderon MD [address] [place] [address] 1 [place] [phone] 02/27/2024 8:30 EDT Telemedicine [facility] Sleep Program - [address] 253431 Dwight Colbert [address] [place], [place] [phone] 02/29/2024 10:30 EDT [facility]ointment [facility] Radiology Nuclear Medicine and PET - [address] [address] 02/29/2024 14:30 EDT Appointment [facility] Radiology Nuclear Medicine and PET - [address] [address] 03/01/2024 8:00 EDT Appointment [facility] Radiology Nuclear Medicine and PET - [address] [address] 03/01/2024 9:30 EDT [facility] Medicine and PET - [address] [address] documented as of this encounter Visit Diagnoses Not on filedocumented in this encounter
--- OUTSIDE RECORDS SUMMARY | 2024-02-06 13:39 | XMS_ITS | Encounter Summary ---
Author Organization [facility] Address [address] [place] [address] Care Team Providers Care Heading Maker Name Role Phone Unavailable Primary Care Provider Unavailabl e Reason for Visit * Reason Comments Telemedicine Video Visit Foot Pain Ankle Pain Encounter Details Date Type Department Care Team (Latest Contact Info) Description 12/28/2019 10:45 EDT Telemedicine [facility] Adult Primary Care - [address] [phone] Teodoro Alejandro PA-C 62 [facility] [address] [place] [address] Encounter for sterilization (Primary Dx); Type 2 diabetes mellitus with hyperosmolarity without coma, with long-term current use of insulin ([facility]); Left foot pain Social History Tobacco Use [...] and ankle. OBGYN: Patient followed up with MEDIA RELATIONS ASSOCIATE on 11/02/2019 and a discussion was placed [...] Encounter for sterilization Patient will follow-up with MEDIA RELATIONS ASSOCIATE regarding sterilization. Also discussed with patient about possiblevasectomy for her partner. Type 2 diabetes mellitus with hyperosmolarity without coma, with long-term current use of insulin ([facility]) Continue Lantus 30 mg daily. [...] [facility] [place] [facility] - [address] [address]251 Carrington Calderon MD [address] [phone] 02/27/2024 8:30 EDT Telemedicine [facility] Sleep Program - [address] 337281 Dwight Colbert [address] [place] [address] [phone] 02/29/2024 10:30 EDT Appointment [facility] Radiology Nuclear Medicine and PET [address] 626351 02/29/2024 14:30 EDT Appointment [facility] Radiology Nuclear Medicine and PET [address] 296451 03/01/2024 8:00 EDT Appointment [facility] Radiology Nuclear Medicine and PET [address] [phone] 03/01/2024 9:30 EDT Appointment [facility] Radiology Nuclear Medicine and PET [address] 762151 documented as of this encounter Visit Diagnoses Diagnosis Encounter for sterilization- Primary Sterilization Type 2 diabetes mellitus with hyperosmolarity without coma, with long-term current use of insulin ([facility]) Left foot pain Pain in limb documented in this encounter
--- OUTSIDE RECORDS SUMMARY | 2024-02-06 13:39 | XMS_ITS | Encounter Summary ---
Author Organization [facility] Address [address] [place] [address] Care Team Providers Care Regulatory Leader Name Role Phone Unavailable Primary Care Provider Unavailabl e Encounter Details Date Type Department Care Team (Latest Contact Info) Description 01/01/2020 8:37 EDT - 01/01/2020 23:59 EDT Hospital Encounter [facility] [address] [place], [place] [phone] Discharge Disposition: Home or Self Care Social [...] [facility] Adult Primary Care [address] [address] Carrington Calderon MD [address] [place] [address] 1 [place] [address] 02/27/2024 8:30 EDT Telemedicine [facility] Sleep Program - [address] [address] Dwight Colbert [address] [place] [address] [phone] 02/29/2024 10:30 EDT Appointment edical [place] Radiology Nuclear Medicine and PET [address] 714681 02/29/2024 14:30 EDT Appointment [facility] Radiology Nuclear Medicine and PET [address] [phone] 03/01/2024 8:00 EDT Appointment [facility] Radiology Nuclear Medicine and PET [address] [phone] 03/01/2024 9:30 EDT Appointment [facility] Radiology Nuclear Medicine and PET [address] [phone] documented as of this encounter Procedures Procedure [...]
--- OUTSIDE RECORDS SUMMARY | 2024-02-06 13:39 | XMS_ITS | Encounter Summary ---
Author Organization [facility] Address [address] [place] [address] Care Team Providers Care Integrity Manager Name Role Phone Unavailable Primary Care Provider Unavailabl e Reason for Visit * Reason Comments Telemedicine Video Visit Encounter Details Date Type Department Care Team (Late st Contact Info) Description 2020 13:00 EDT Telemedicine [facility] Infectious Disease - [address] 683151 Tonja Plascencia, GUSTAVO 111 [facility], Level 5 [place] [address] Diabetic foot infection ([facility]) (Primary Dx) Social History Tobacco Use Types [...] visit: Tonja Plascencia ?? Patient location: [facility]/town, State: [place] Estimated driving distance from [place]: 25 miles. Demographics HPI: Cristy Luo [...] Office Visit [facility] Adult Primary Care - [address] [phone] Carrington Calderon MD [address] [phone] 02/27/2024 8:30 EDT Telemedicine [facility] Sleep Program - [address] 034331 Dwight Colbert [address] [place] [address] [phone] 02/29/2024 10:30 EDT Appointment [facility] Radiology Nuclear Medicine and PET - [address] 079301 02/29/2024 14:30 EDT Appointment [facility] Radiology Nuclear Medicine and PET - [address] [phone] 03/01/2024 8:00 EDT Appointment [facility] Radiology Nuclear Medicine and PET - [facility] [address] [place] [address] 03/01/2024 9:30 EDT Appointment [facility] Radiology Nuclear Medicine and PET - [address] [address] documented as of this encounter Visit Diagnoses Diagnosis Diabetic foot infection ([facility])- Primary Type II or unspecified type diabetes mellitus with other specified manifestations, not stated as uncontrolled documented in this encounter
--- OUTSIDE RECORDS SUMMARY | 2024-02-06 13:39 | XMS_ITS | Encounter Summary ---
Author Organization [facility] Address [address] [place] [address] Care Team Providers Care Chair Springer Name Role Phone Unavailable Primary Care Provider Unavailabl e Reason for Visit * Reason Comments Social Work Encounter Details Date Type Department Care Team (Late st Contact Info) Description 12/19/2019 Community Health Team [facility] Women's Services - [address] [address] Eryn Diaz Social History Tobacco Use Types [...] [facility] - [address] 611381 Carrington Calderon MD [address] [phone] 02/27/2024 8:30 EDT Telemedicine [facility] Sleep Program - [address] [phone] Dwight Colbert [address] [place] [address] [phone] 02/29/2024 10:30 EDT Appointment [facility] Radiology Nuclear Medicine and PET - [address] [phone] 02/29/2024 14:30 EDT Appointment [facility] Radiology Nuclear Medicine and PET - [address] [phone] 03/01/2024 8:00 EDT Appointment [facility] Radiology Nuclear Medicine and PET - [address] [phone] 03/01/2024 9:30 EDT Appointment [facility] Radiology Nuclear Medicine and PET - [address] [phone] documented as of this encounter Visit Diagnoses Not on filedocumented in this encounter
--- OUTSIDE RECORDS SUMMARY | 2024-02-06 13:39 | XMS_ITS | Encounter Summary ---
Author Organization [facility] Address [address] [place] [address] Care Team Providers Care Foreign Collection Clerk Name Role Phone Unavailable Primary Care Provider Unavailabl e Reason for Visit * Reason Comments Diabetes Encounter Details Date Type Department Care Team (Latest Contact Info) Description 01/08/2020 10:30 EDT Telemedicine [facility] Endocrinology - [facility] [address] [place] [address] Sara Zafar NP [address] [facility] [address] [place] [address] Type 2 diabetes mellitus with hyperglycemia, with long-term current use of insulin ([facility]) (Primary Dx) Social History Tobacco Use Types [...] in 3 months I will check with PATIENT ASSISTANT on expected HgA1C to have surgery. documented in this encounter Progress Notes * Sara Zafar APRN - 01/08/2020 1030 EDT Subjective: [facility] F/U Note TELEMEDICINE VIDEO VISIT [...] trimester miscarriages, most recently terminated a at [facility] The most recent 10/28/2019. Recurrent loss is attributed to to poorly controlled type 2 diabetes in conjunction with tobacco dependence. She saw BEAMER OPERATOR on 11/03/2018, and was advised to get diabetes in control, and to quit smoking both tobacco and pot. She was scheduled for a tubal ligation December 14, but was cancelled again. 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 Previous [...] in 3 months I will check with PATIENT ASSISTANT on expected HgA1C to have surgery. Recommend [...] [facility] [place] [facility] - [address] 700141 Carrington Calderon MD [address] [address] 02/27/2024 8:30 EDT Telemedicine [facility] Sleep Program - [address] 513781 Dwight Colbert [address] [place] [address] [phone] 02/29/2024 10:30 EDT [facility] Radiology Nuclear Medicine and PET - [address] 919201 02/29/2024 14:30 EDT Appointment [facility] Radiology Nuclear Medicine and PET [address] [phone] 03/01/2024 8:00 EDT Appointment [facility] Radiology Nuclear Medicine and PET - [address] [phone] 03/01/2024 9:30 EDT Appointment [facility] Radiology Nuclear Medicine and PET - [address] [address] documented as of this encounter Visit Diagnoses Diagnosis Type 2 diabetes mellitus with hyperglycemia, with long-term current use of insulin ([facility])- Primary documented in this encounter Discontinued Medications Medication Sig Discontinue Reason Start Date End Da te metFORMIN (GLUCOPHAGE) 500 mg tablet Take 2 Tabs by mouth daily for 90 days. Side effects 11/26/2019 01/08/2020 documented as of this encounter
--- OUTSIDE RECORDS SUMMARY | 2024-02-06 13:39 | XMS_ITS | Encounter Summary ---
Author Organization [facility] Address [address] [place] [address] Care Team Providers Care Associate Sales Manager Name Role Phone Unavailable Primary Care Provider Unavailabl e Encounter Details Date Type Department Care Team (Latest Contact Info) Description 01/01/2020 8:37 EDT - 01/01/2020 23:59 EDT Hospital Encounter [facility] [address] [place], [place] [phone] Discharge Disposition: Home or Self Care Social [...] Visit [facility] Adult Primary Care [address] [address] Carrington Calderon MD [address] [place] [address] [address] [place] [address] 02/27/2024 8:30 EDT Telemedicine [facility] Sleep Program - [address] [address] Dwight Colbert [address] [place] [address] 815121 02/29/2024 10:30 ED[facility] [address] 219531 02/29/2024 14:30 EDT Appointment [facility] Radiology Nuclear Medicine and PET [address] [phone] 03/01/2024 8:00 EDT Appointment [facility] Radiology Nuclear Medicine and PET [address] [id number] 03/01/2024 9:30 EDT Appointment [facility] Radiology Nuclear Medicine and PET [address] [phone] documented as of this encounter Procedures Procedure Name Priority Date/Time Associated Diagnosis Comments XR FOOT LEFT 3 OR MORE VIEWS Routine 01/01/2020 8:52 EDT Ulcerated, foot, left, with fat layer exposed ([facility]) Type 2 diabetes mellitus with diabetic polyneuropathy, with long-term current use of insulin ([facility]) documented in this encounter Results * XR [...]
--- OUTSIDE RECORDS SUMMARY | 2024-02-06 13:40 | XMS_ITS | Encounter Summary ---
Author Organization [facility] Address [address] [place] [address] Care Team Providers Care Admitting Coordinator Name Role Phone Unavailable Primary Care Provider Unavailabl e Reason for Referral * Radiology Services (Routine) - Closed Specialty Diagnoses / Procedures Referred By Contac t Referred To Contact Radiology Diagnoses Left foot pain Sore on toe Procedures MR FOOT W WO CONTRAST LEFT Tonja Alejandro PA-C [address] [employer] [address] [place] [address] Referral ID Status Reason Start Date Expiration Date Visits Re quested Visits Authorized [id number] Closed 11/28/2019 1 1 Reason for Visit * Reason Comments Foot Pain left Encounter Details Date Type Department Care Team (Late st Contact Info) Description 11/28/2019 14:30 EDT Office Visit [facility] Adult Primary Care [facility] [address] [place] [address] Tonja Alejandro PA-C [address] [place] [address] Left foot pain (Primary Dx); Type 2 diabetes mellitus with other specified complication, 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 [facility] Primary Care Acute Visit Service Date: [...] she did go to urgent care at [facility] and had x-rays done and was told [...] with other specified complication, unspecified whether intermediate insulin use ([facility]) Sore on toe/left foot pain This [...] [facility] Adult Primary Care - [address] [phone] Carrington Calderon MD 1 [facility] 1 [place] [phone] 02/27/2024 8:30 EDT Telemedicine [facility] Sleep Program - [address] 995231 Dwight Colbert [address] [place] [address] 02/29/2024 10:30 EDT Appointment [facility] Radiology Nuclear Medicine and PET [address] [address] 02/29/2024 14:30 EDT Appointment [facility] Radiology Nuclear Medicine and PET [address] [id number] 03/01/2024 8:00 EDT Appointment [facility] Radiology Nuclear Medicine and PET [address] 104971 03/01/2024 9:30 EDT Appointment [facility] Radiology Nuclear Medicine and PET [address] [address] documented as of this encounter Results * [...] with other specified complication, unspecified whether intermediate insulin use ([facility]) Sore on toe Left foot pain Pain in limb Sore on toe documented in this encounter
--- OUTSIDE RECORDS SUMMARY | 2024-02-06 13:40 | XMS_ITS | Encounter Summary ---
Author Organization [facility] Address [address] [place] [address] Care Team Providers Care Back End Architect Name Role Phone None, Provider Primary Care Provider Unavailabl e Reason for Visit * Reason Onset Date Comments Surgery Scheduling 11/20/2019 Encounter Details Date Type Department Care Team (Late st Contact Info) Description 11/20/[address] [facility] [address] [place], [place] [phone] Pamela Sifuentes MD [address] [place] [phone] Surgery Scheduling Social History Tobacco Use [facility] - [address] 925691 Carrington Calderon MD [address] [phone] 02/27/2024 8:[address] [facility] Sleep Program - [address] 723471 Dwight Colbert [address] [place] [address]151 02/29/2024 10:30 EDT [facility]ointment [facility] Radiology Nuclear Medicine and PET - [address] 373251 02/29/2024 14:30 EDT Appointment [facility] Radiology Nuclear Medicine and PET [address] 319241 03/01/2024 8:00 EDT Appointment [facility] Radiology Nuclear Medicine and PET - [address] 848121 03/01/2024 9:30 EDT Appointment [facility] Radiology Nuclear Medicine and PET - [address] [address] documented as of this encounter Visit Diagnoses Not on filedocumented in this encounter Care Teams Back End Architect Relationship Specialty Start Date End Date None, Provider PCP - General 06/18/19 11/25/19 documented as of this encounter
--- OUTSIDE RECORDS SUMMARY | 2024-02-06 13:40 | XMS_ITS | Encounter Summary ---
Author Organization [facility] Address [address] [place] [address] Care Team Providers Care Dairy Specialist Name Role Phone None, Provider Primary [...] Description 02/21/2024 9:45 EDT Office Visit [facility] Adult Primary Care - [address] [phone] Carrington Calderon MD 1 [facility] 1 [place] [address] 02/27/2024 8:30 EDT Telemedicine [facility] Sleep Program - [address] 599111 Dwight Colbert [address] [place] [phone] 02/29/2024 10:30 EDT Appointment [facility] Radiology Nuclear Medicine and PET - [address] 077681 02/29/2024 14:30 EDT Appointment [facility] Radiology Nuclear Medicine and PET - [address] 663011 03/01/2024 8:00 EDT Appointment [facility] Radiology Nuclear Medicine and PET [address] [phone] 03/01/2024 9:30 EDT Appointment [facility] Radiology Nuclear Medicine and PET [address] [phone] documented as of this encounter Visit Diagnoses Not on filedocumented in this encounter Care Teams Dairy Specialist Relationship Specialty Start Date End Date None, Provider PCP - General 06/18/19 11/25/19 documented as of this encounter
--- OUTSIDE RECORDS SUMMARY | 2024-02-06 13:40 | XMS_ITS | Encounter Summary ---
Author Organization [facility] Address [address] [place] [address] Care Team Providers Care Energy Conservation Engineer Name Role Phone None, Provider Primary Care Provider Unavailabl e Reason for Visit * Reason Onset Date Comments Vaginal Bleeding 10/11/2019 Encounter Details Date Type Department Care Team (Late st Contact Info) Description 10/11/2019 Telephone [facility] [address] [place], [place] [phone] Mayra Lund MD [address] [place] [address] Vaginal Bleeding Social History Tobacco Use Types Packs/Day Years Used Date Smoking Tobacco: Every Day Cigarettes 0.3 13.2 Started: 11/10/2010 Smokeless Tobacco: Never Alcohol Use [...] Lund MD PhD M Fellow, PGY5 Pager #[phone] documented in this encounter Plan of Treatment Upcoming Encounters Date Type Department Care Team (Late st Contact Info) Description 02/21/2024 9:45 EDT Office Visit [facility] Adult Primary Care - [address] 849721 Carrington Calderon MD [address] [phone] 02/27/2024 8:30 EDT Telemedicine [facility] Sleep Program - [address] 677351 Dwight Colbert [address] [place], [place] 2[address] 02/29/2024 10:30 EDT Appointment [facility] Radiology Nuclear Medicine and PET - [address] [address] 02/29/2024 14:30 EDT Appointment [facility] Radiology Nuclear Medicine and PET [address] [address] 03/01/2024 8:00 EDT Appointment [facility] Radiology Nuclear Medicine and PET [address] [address] 03/01/2024 9:30 EDT Appointment [facility] Radiology Nuclear Medicine and PET [address] [address] documented as of this encounter Visit Diagnoses Not on filedocumented in this encounter Care Teams Energy Conservation Engineer Relationship Specialty Start Date End Date None, Provider PCP - General 06/18/19 11/25/19 documented as of this encounter
--- OUTSIDE RECORDS SUMMARY | 2024-02-06 13:40 | XMS_ITS | Encounter Summary ---
Author Organization [facility] Address [address] [place] [address] Care Team Providers Care Compatibility Test Engineer Name Role Phone None, Provider Primary Care Provider Unavailabl e Reason for Visit * Reason Comments Social Work Encounter Details Date Type Department Care Team (Late st Contact Info) Description 11/05/2019 Community Health Team [facility] Women's Services - [address] [address] Eryn Diaz Social History Tobacco Use Types [...] and her grieving process. Pt lives in [place] with Fermin, her 8 yo step francois [...] 11/25 via zoom - emailed pt link. [facility] Total Time: 1.5 hours total 1 hour, 5 min via zoom with pt 5 min via email with pt 20 min charting Referral: [facility] Follow up: Date: Tuesday, November 26, 2019 Time: 10 AM With: Eryn Diaz University Relations Vice President Location: zoom Status: Active documented in this encounter Plan of Treatment Upcoming Encounters Date Type Department Care Team (Late st Contact Info) Description 02/21/2024 9:45 EDT Office Visit [facility] Adult Primary Care - [address] 925311 Carrington Calderon MD [address] [phone] 02/27/2024 8:30 EDT Telemedicine [facility] Sleep Program - [address] [address] Dwight Colbert [address] [place] [address]641 02/29/2024 10:30 EDT Appointment [facility] Radiology Nuclear Medicine and PET - [address] 746351 02/29/2024 14:30 EDT Appointment [facility] Radiology Nuclear Medicine and PET - [address] [phone] 03/01/2024 8:00 EDT Appointment [facility] Radiology Nuclear Medicine and PET - [address] [address] 03/01/2024 9:30 EDT Appointment [facility] Radiology Nuclear Medicine and PET - [address] [address] documented as of this encounter Visit Diagnoses Not on filedocumented in this encounter Care Teams Compatibility Test Engineer Relationship Specialty Start Date End Date None, Provider PCP - General 06/18/19 11/25/19 documented as of this encounter
--- OUTSIDE RECORDS SUMMARY | 2024-02-06 13:40 | XMS_ITS | Encounter Summary ---
Author Organization [facility] Address [address] [place] [address] Care Team Providers Care Tandem Mill Sticker Name Role Phone None, Provider Primary Care [...] [facility] Adult Primary Care - [address] [phone] Carrington Calderon MD 1 [facility] 1 [place] [address] 02/27/2024 8:30 EDT Telemedicine [facility] Sleep Program - [address] 112231 Dwight Colbert [address] [place] [address] [phone] 02/29/2024 10:30 EDT Appointment [facility] Radiology Nuclear Medicine and PET - [address] 049791 02/29/2024 14:30 EDT Appointment [facility] Radiology Nuclear Medicine and PET [address] 376171 03/01/2024 8:00 EDT Appointment [facility] Radiology Nuclear Medicine and PET [address] [phone] 03/01/2024 9:30 EDT Appointment [facility] Radiology Nuclear Medicine and PET [address] [phone] documented as of this encounter Visit Diagnoses Not on filedocumented in this encounter Care Teams Tandem Mill Sticker Relationship Specialty Start Date End Date None, Provider PCP - General 06/18/19 11/25/19 documented as of this encounter
--- OUTSIDE RECORDS SUMMARY | 2024-02-06 13:40 | XMS_ITS | Encounter Summary ---
Author Organization [facility] Address [address] [place] [address] Care Team Providers Care Health Information Manager Name Role Phone Unavailable Primary Care Provider Unavailabl e Encounter Details Date Type Department Care Team (Late st Contact Info) Description 11/28/2019 Orders Only [facility] Radiology - [facility] [place] [address] [place] [address] Tracey Veloz MD [address] [place], [place] 764401 Social History Tobacco Use Types Packs/Day Years [...] [facility] Adult Primary Care - [address] [address] Carrington Calderon MD [address] [address] 02/27/2024 8:30 EDT Telemedicine [facility] Sleep Program - [address] 587511 Dwight Colbert [address] [place] [address] 592451 02/29/2024 10:30 EDT Appointment [facility] Radiology Nuclear Medicine and PET - [address] 644431 02/29/2024 14:30 EDT Appointment [facility] Radiology Nuclear Medicine and PET - [address] 243861 03/01/2024 8:[address] [facility] Radiology Nuclear Medicine and PET [address] 042431 03/01/2024 9:[address] [facility] Radiology Nuclear Medicine and PET [address] 056981 documented as of this encounter Visit Diagnoses Not on filedocumented in this encounter
--- OUTSIDE RECORDS SUMMARY | 2024-02-06 13:40 | XMS_ITS | Encounter Summary ---
Author Organization [facility] Address [address] [place] [address] Care Team Providers Care Actionscript Developer Name Role Phone Unavailable Primary Care [...] Visit [facility] Adult Primary Care - [address] [address] Carrington Calderon MD [address] [address] 02/27/2024 8:30 EDT Telemedicine [facility] Sleep Program - [address] [address] Dwight Colbert [address] [place] [address] 214471 02/29/2024 10:30 EDT Appointment [facility] Radiology Nuclear Medicine and PET [address] 348741 02/29/2024 14:30 EDT Appointment [facility] Radiology Nuclear Medicine and PET [address] 771031 03/01/2024 8:00 EDT Appointment [facility] Radiology Nuclear Medicine and PET [address] 430471 03/01/2024 9:30 EDT Appointment [facility] Radiology Nuclear Medicine and PET [address] 476381 documented as of this encounter Visit Diagnoses Not on filedocumented in this encounter
--- OUTSIDE RECORDS SUMMARY | 2024-02-06 13:40 | XMS_ITS | Encounter Summary ---
Author Organization [facility] Address [address] [place] [address] Care Team Providers Care Iron Worker Apprentice Name Role Phone None, Provider Primary Care Provider Unavailabl e Encounter Details Date Type Department Care Team (Late st Contact Info) Description 11/20/2019 Prep for Procedure [facility] [address] [place], [place] [phone] Pamela Sifuentes MD [address] [place] [phone] Social History Tobacco Use Types Packs/Day [...] [facility] Adult Primary Care - [address] [address] Carrington Calderon MD [address] [address] 02/27/2024 8:30 EDT Telemedicine [facility] Sleep Program - [address] 739221 Dwight Colbert [address] [place] [address] [phone] 02/29/2024 10:[address] [facility] Radiology Nuclear Medicine and PET [address] 680231 02/29/2024 14:[address] [facility] Radiology Nuclear Medicine and PET [address] 293751 03/01/2024 8:[address] [facility] Radiology Nuclear Medicine and PET [address] [phone] 03/01/2024 9:[address] [facility] Radiology Nuclear Medicine and PET [address] 445101 documented as of this encounter Visit Diagnoses Not on filedocumented in this encounter Care Teams Iron Worker Apprentice Relationship Specialty Start Date End Date None, Provider PCP - General 06/18/19 11/25/19 documented as of this encounter
--- OUTSIDE RECORDS SUMMARY | 2024-02-06 13:40 | XMS_ITS | Encounter Summary ---
Author Organization [facility] Address [address] [place] [address] Care Team Providers Care Audiometrist Name Role Phone None, Provider Primary Care Provider Unavailabl e Reason for Visit * Reason Comments Nutrition Counseling Type 2 DM first tri mester * Consult (Routine) - Order Cancelled Specialty Diagnoses / Procedures Referred By Kit goode Referred To Contact Obstetrics Diagnoses with type 2 diabetes mellitus in first trimester Mayra Lund MD [address] [place] [phone] [facility] Ep4 Ob/Mfm [address] [place] [address] Referral ID Status Reason Start Date Expiration Date Visits Requested Visits Authorized [id number] Order Cancelled Specialty Services Required 10/01/2019 1 1 Encounter Details Date Type Department Care Team (Late st Contact Info) Description 10/08/2019 14:00 EDT Nutrition [facility] [address] [place], [place] [phone] Rn Ed, [facility] Ep4 Obgyn Class 2 severe obesity due to excess calories with serious comorbidity in adult, unspecified BMI ([facility]); Type 2 diabetes mellitus with other specified complication, unspecified whether termite treater helper insulin use ([facility]) Social History Tobacco Use Types Packs/Day [...] Carline Weathers, RD - 10/08/2019 1400 EDT cytology laboratory manager Clinic Initial Nutrition Assessment Form Attempted Telehealth visit, but Telehealth is not available (for me or for the patient). Obtained verbal consent from patient or the patient's adult business development representative for use of the telephone to [...] Diagnosis Date ??? Depression ??? Diabetes mellitus ([facility]) ??? Migraine, unspecified, without mention of intractable [...] Visit [facility] Adult Primary Care - [address] [phone] Carrington Calderon MD [address] [phone] 02/27/2024 8:30 EDT Telemedicine [facility] Sleep Program - [address] 773451 Dwight Colbert [address] [place] [address]231 02/29/2024 10:30 EDT [facility] Radiology Nuclear Medicine and PET - [address] [address] 02/29/2024 14:30 EDT [facility] Radiology Nuclear Medicine and PET - [address] [address] 03/01/2024 8:00 EDT [facility] Radiology Nuclear Medicine and PET - [address] [address] 03/01/2024 9:30 EDT [facility]ointment [facility] Radiology Nuclear Medicine and PET [address] [phone] documented as of this encounter Visit Diagnoses Diagnosis Class 2 severe obesity due to excess calories with serious comorbidity in adult, unspecified BMI ([facility]) Type 2 diabetes mellitus with other specified complication, unspecified whether penitentiary insulin use ([facility]) documented in this encounter Care Teams Audiometrist Relationship Specialty Start Date End Date None, Provider PCP - General 06/18/19 11/25/19 documented as of this encounter
--- OUTSIDE RECORDS SUMMARY | 2024-02-06 13:40 | XMS_ITS | Encounter Summary ---
Author Organization [facility] Address [address] [place] [address] Care Team Providers Care Flap Curer Name Role Phone Unavailable Primary Care Provider Unavailabl e Encounter Details Date Type Department Care Team (Late st Contact Info) Description 11/28/2019 16:00 EDT Phlebotomy Only [facility] Laboratory Services - [address] [address] [facility] Type 2 diabetes mellitus with other specified complication, unspecified whether nursing home insulin use ([facility]); Anxiety and depression; Left foot pain [...] [facility] - [address] [phone] Carrington Calderon MD [address] [address] 02/27/2024 8:30 EDT Telemedicine [facility] Sleep Program - [address] [phone] Dwight Colbert [address] [place] [address] [phone] 02/29/2024 10:30 EDT Appointment [facility] Radiology Nuclear Medicine and PET [address] [phone] 02/29/2024 14:30 EDT Appointment [facility] Radiology Nuclear Medicine and PET [address] [phone] 03/01/2024 8:00 EDT Appointment [facility] Radiology Nuclear Medicine and PET [address] [id number] 03/01/2024 9:30 EDT Appointment [facility] Radiology Nuclear Medicine and PET [address] [phone] documented as of this encounter Procedures Procedure Name Priority Date/Time Associated Diagnosis Comments DIFFERENTIAL, AUTOMATED MANUAL Today 11/28/2019 15:56 EDT Left foot pain THYROID CASCADE Routine 11/28/2019 15:56 EDT Anxiety and depression URINE KSNOING-EX-IKDVYDESVI RATIO (ACR) Routine 11/28/2019 15:56 EDT Type 2 diabetes mellitus with other specified complication, unspecified whether parts counterman insulin use ([facility]) COMPLETE BLOOD COUNT AND DIFFERENTIAL Routine 11/28/2019 15:56 EDT Left foot pain C REACTIVE PROTEIN Routine 11/28/2019 15 :56 EDT Left foot pain HEMOGLOBIN A1C Routine 11/28/2019 15:56 EDT Type 2 diabetes mellitus with other specified complication, unspecified whether parts counterman insulin use ([facility]) LIPID PROFILE (INCLUDES CHOLESTEROL, TRIGLYCERIDES, HDL, LDL) Routine 11/28/2019 15:56 EDT Type 2 diabetes mellitus with other specified complication, unspecified whether parts counterman insulin use ([facility]) COMPREHENSIVE METABOLIC PANEL (CMP) Routine 11/28/2019 15:56 EDT Type 2 diabetes mellitus with other specified complication, unspecified whether nursing home insulin use ([facility]) documented in this encounter Results * (ABNORMAL) DIFFERENTIAL, AUTOMATED MANUAL (11/28/2019 15:56 EDT) % Neutrophils 45.7 % 11/28/2019 17:50 EDT [facility] % Banded Neutrophils 0.9 % [facility]2019 [facility] % Lymphocytes 37.1 % 11/28/2019 17:50 [facility] % Atypical Lymphocytes 7.7 % 11/28/2019 17:50 [facility] % Monocytes 4.3 % 11/28/2019 17:50 [facility] % Eosinophils 2.6 % 11/28/2019 17:50 [facility] % Basophils 1.7 % 11/28/2019 17:50 [facility] Absolute Neutrophils 6.57 2.20 - 8.85 K/cmm 11/28/2019 17:50 [facility] Absolute Bands 0.13 K/cmm 11/28/2019 17:50 [facility] Absolute Lymphocytes 5.33(H) 1.09 - 3.30 K/cmm 11/28/2019 17:50 EDT [facility] Absolute Atypical Lymphocytes 1.11 K/cmm 11/28/2019 17:50 [facility] Absolute Monocytes 0.62 0.10 - 0.80 K/cmm 11/28/2019 17:50 [facility] Absolute Eosinophils 0.37 0.03 - 0.61 K/cmm 11/28/2019 17:50 [facility] ABS Basophils 0.24(H) 0.01 - 0.11 K/cmm 11/28/2019 17:50 EDT [facility] Blood VENOUS BLOOD / Unknown Venipuncture / Unknown 11/28/2019 15:56 EDT 11/28/2019 15:56 EDT Tonja Alejandro PA-C HEMATOLOGY & PF4 ORDERABLES [facility] [address] [place] [address] * (ABNORMAL) C REACTIVE PROTEIN (11/28/2019 15:56 EDT) C-Reactive Protein 10.6(H) <10.0 mg/L 11/28/2019 17:12 EDT [facility] Blood VENOUS BLOOD / Unknown Venipuncture / Unknown 11/28/2019 15:56 EDT 11/28/2019 15:56 EDT Tonja Alejandro PA-C CHEMISTRY & BLOOD GAS ORDERABLES [facility] [address] [place] [address] * (ABNORMAL) COMPREHENSIVE METABOLIC PANEL (CMP) (11/28/2019 15:56 EDT) Sodium 134(L) 136 - 145 mEq/L 11/28/2019 17:12 [facility] Potassium 4.2 3.5 - 5.0 mEq/L 11/28/2019 17:12 [facility] Chloride 100 96 - 110 mEq/L 11/28/2019 17:12 [facility] CO2 Total 28 22 - 32 mEq/L 11/28/2019 17:12 [facility] Glucose 301(H) 70 - 100 mg/dL 11/28/2019 17:12 [facility] BUN 14 10 - 26 mg/dL 11/28/2019 17:12 [facility] Creatinine 0.57 0.52 - 1.04 mg/dL 11/28/2019 17:12 [facility] eGFR 121 >60 mL/min/1.7 3m2 11/28/2019 17:12 [facility] Comment:eGFR calculated gil curtis CKD-EPI equation for non- Americans. Multiply eGFR by 1.16 for patients. Total Protein 7.0 6.3 - 8.2 g/dL 11/28/2019 17:12 [facility] Albumin 3.9 3.4 - 4.9 g/dL 11/28/2019 17:12 [facility] Alkaline Phosphatase 100 38 - 126 U/L 11/28/2019 17:12 [facility] AST 17 15 - 46 U/L 11/28/2019 17:12 [facility] ALT 14 <35 U/L 11/28/2019 17:12 [facility] Bilirubin, Total <0.5 <1.4 mg/dL 11/28/19 20 17:12 [facility] Calcium 9.8 8.5 - 10.5 mg/dL 11/28/2019 17:12 [facility] Calculated Calcium 9.9 8.5 - 10.5 mg/dL 11/28/2019 17:12 [facility] Blood VENOUS BLOOD / Unknown Venipuncture / Unknown 11/28/2019 15:56 EDT 11/28/2019 15:56 EDT Tonja Alejandro PA-C CHEMISTRY & BLOOD GAS ORDERABLES [facility] [address] [place] [address] * (ABNORMAL) COMPLETE BLOOD COUNT AND DIFFERENTIAL (11/28/2019 15:56 EDT) WBC 14.38(H) 4.00 - 12.40 K/cmm 11/28/2019 17:04 [facility] RBC 4.69 3.86 - 5.04 M/cmm 11/28/2019 17:04 [facility] Hemoglobin 14.3 11.6 - 15.2 gm/dL 11/28/2019 17:04 [facility] HCT 40.8 34.9 - 44.4 % 11/28/2019 17:04 [facility] MCV 87 81 - 98 fl 11/28/2019 17:04 [facility] MCH 30.5 26.7 - 33.3 pg 11/28/2019 17:04 [facility] MCHC 35.0 32.1 - 35.9 gm/dL 11/28/2019 17:04 [facility] RDW-CV 12.0 <14.7 % 11/28/2019 17:04 [facility] RDW-SD 38.4 <50.4 fl 11/28/2019 17:04 [facility] PLT 414(H) 141 - 377 K/cmm 11/28/2019 17:04 [facility] MPV 10.1 9.5 - 12.7 fl 11/28/2019 17:04 [facility] Type of Differential: Manual 11/28/2019 17:04 [facility] Blood VENOUS BLOOD / Unknown Venipuncture / Unknown 11/28/2019 15:56 EDT 11/28/2019 15:56 EDT Tonja Alejandro PA-C PACKAGES & D NA PROBE ORDERABLES Performing Organization Address City/[facility]/ZIP Co de Phone Number [facility] [address] [place] [address] * (ABNORMAL) HEMOGLOBIN A1C (11/28/2019 15:56 EDT) Hemoglobin A1c 10.3(H) <5.7 % 11/29/2019 9:15 EDT [facility] Comment: Glycemic Status [...] Avg Glucose 249 mg/dL 0 9:15 EDT [facility] Comment: The eAG represents the A1c result expressed as average glucose in mg/dL. Blood VENOUS BLOOD / Unknown Venipuncture / Unknown 11/28/2019 15:56 EDT 11/28/2019 15:56 EDT Tonja Alejandro PA-C CHEMISTRY & BLOOD GAS ORDERABLES [facility] [address] [place] [address] * THYROID CASCADE (11/28/2019 15:56 EDT) TSH 0.64 0.47 - 4.68 uIU/mL 11/28/2019 17:44 EDT [facility] Blood VENOUS BLOOD / Unknown Venipuncture / Unknown 11/28/2019 15:56 EDT 11/28/2019 15:56 EDT Narrative [facility] - 11/28/2019 17:44 EDT NOTE: TSH [place] is not recommended for patients in which pituitary or hypothalamic disorders are suspected. The results of this assay can be falsely lowered due to the consumption of Biotin. Tonja Alejandro PA-C CHEMISTRY & BLOOD GAS ORDERABLES [facility] [address] [place] [address] * LIPID PROFILE (INCLUDES CHOLESTEROL, TRIGLYCERIDES, HDL, LDL) (11/28/2019 15:56 EDT) Cholesterol 179 See Note mg/dL 11/28/2019 17:12 EDT [facility] Comment: Acceptable: ?<200 mg/dL Borderline High: 200-239 mg/dL High: ?> or = 240 mg/dL HDL 38 See Note mg/dL 11/28/2019 17:12 T [facility] Comment: Low: ? <40 mg/dL Normal: ??40-60 mg/dL High: ?>60 mg/dL LDL, Calculated 61 See Note mg/dL 11/28/2019 17:12 [facility] Comment: Optimal: ? <100 mg/dL Near Optimal: ?100-129 mg/dL Borderline High: 130-159 mg/dL High: ?160-189 mg/dL Very High: ? > or = 190 mg/dL Triglyceride 398 See Note mg/dL 11/28/2019 17:12 [facility] Comment: Normal: ? <150 mg/dL Borderline High: ??150 - 199 mg/dL High: ? 200 - 499 mg/dL Very High: ?> or = 500 mg/dL Chol/HDL Ratio 4.7 See Note 11/28/2019 17:12 EDT [facility] Comment: No reference range has been established for CHOL/HDL ratio. Non HDL Cholesterol 141 See Note mg/dL 11/28/2019 17:12 EDT [facility] Comment: Desirable: ?<130 mg/dL Borderline High: ??130-159 mg/dL High: ? 160-189 mg/dL Very High: ?> or = 190 mg/dL Blood VENOUS BLOOD / Unknown Venipuncture / Unknown 11/28/2019 15:56 EDT 11/28/2019 15:56 EDT Tonja Alejandro PA-C CHEMISTRY & BLOOD GAS ORDERABLES Performing Organization Address [facility] Co de Phone Number [facility] [address] [place] [address] * (ABNORMAL) ALBUMIN, URINE (11/28/2019 15:56 EDT) Albumin, Urine 11.3 See Note mg/dL 2019 16:47 EDT [facility] Comment: NOTE: Reference range not established Creatinine, Urine 143.1 See Note mg/dL 11/28/2019 16:47 EDT [facility] Comment: NOTE: Reference range not established Lab Urine Albumin to Creatinine Ratio 79(H) <30 ug/mg Creatinine 11/28/2019 16:47 EDT [facility] Comment: Urine Albumin/Creatinine Ratio: Normal: <30 ug/mg Creatinine Moderately increased albuminuria: 30-300 ug/mg Creatinine Severley increased albuminuria: >300 ug/mg Creatinine Urine URINE SPECIMEN OBTAINED BY CLEAN CATCH PROCEDURE / Unknown Urine Collect / Unknown 11/28/2019 15:56 EDT 11/28/2019 15:56 EDT Tonja Alejandro PA-C CHEMISTRY & BLOOD GAS ORDERABLES Performing Organization Address [facility] Co de Phone Number [facility] [address] [place] [address] documented in this encounter Visit Diagnoses Diagnosis Type 2 diabetes mellitus with other specified complication, unspecified whether parts counterman insulin use ([facility]) Anxiety and depression Dysthymic disorder Left foot pain Pain in limb documented in this encounter
--- OUTSIDE RECORDS SUMMARY | 2024-02-06 13:40 | XMS_ITS | Encounter Summary ---
Author Organization [facility] Address [address] [place] [address] Care Team Providers Care Public Health Teacher Name Role Phone Unavailable Primary Care Provider Unavailabl e Reason for Visit * Reason Onset Date Comments Medication Problem 11/27/2019 Encounter Details Date Type Department Care Team (Late st Contact Info) Description 11/27/2019 Telephone [facility] Adult Primary Care - [address] [phone] Tonja Alejandro PA-C [employer] [facility] [address] [place] [phone] Medication Problem Social History Tobacco Use [...] Porras - 11/27/2019 0903 EDT [facility] states insulin glargine is dispensed in 15 ml quantities. Currently prescription is written for 7.5 ml with 2 refills. Olive requests clarification of quantity and refills. documented in this encounter Plan of Treatment Upcoming Encounters Date Type Department Care Team (Late st Contact Info) Description 02/21/2024 9:45 EDT Office Visit [facility] Adult Primary Care - [address] 244301 Carrington Calderon MD 1 [facility] 1 [place] [address] 02/27/2024 8:30 EDT Telemedicine [facility] Sleep Program - [address] [phone] Dwight Colbert [address] [place] [address] [phone] 02/29/2024 10:30 EDT Appointment [facility] Radiology Nuclear Medicine and PET [address] [address] 02/29/2024 14:[address] [facility] [address] [id number] 03/01/2024 8:00 EDT Appointment [facility] Center Radiology Nuclear Medicine and PET - [address] [id number] 03/01/2024 9:30 EDT Appointment [facility] Radiology Nuclear Medicine and PET [address] [phone] documented as of this encounter Visit Diagnoses Not on filedocumented in this encounter Discontinued Medications Medication Sig Discontinue Reason Start Date End Da te insulin glargine (LANTUS SOLOSTAR) 100 unit/mL (3 mL) injection pen Inject 25 Units into the skin at bedtime for 90 days. Reorder 11/26/2019 11/27/2019 documented as of this encounter
--- OUTSIDE RECORDS SUMMARY | 2024-02-06 13:40 | XMS_ITS | Encounter Summary ---
Author Organization [facility] Address [address] [place] [address] Care Team Providers Care Date Pitter Name Role Phone Unavailable Primary Care Provider Unavailabl e Reason for Visit * Reason Onset Date Comments Ankle Pain 12/04/2019 Encounter Details Date Type Department Care Team (Late st Contact Info) Description 12/04/2019 Telephone [facility] Adult Primary Care - [address] [phone] Tonja Alejandro PA-C [employer] [facility] [address] [place] [phone] Ankle Pain Social History Tobacco Use [...] Encounter - Tonja Alejandro PA-C - 12/04/2019 0584 EDT Spoke with patient on the phone. [...] [facility] Adult Primary Care - [address] 148161 Carrington Calderon MD 1 [facility] 1 [place] [address] 02/27/2024 8:30 EDT Telemedicine [facility] Sleep Program - [address] [place] [address] Sayra Dwight [address] [place] [address] 02/29/2024 10:30 EDT Appointment [facility]ical Center Radiology Nuclear Medicine and PET - [address] [id number] 02/29/2024 14:30 EDT Appointment [facility]ical Center Radiology Nuclear Medicine and PET - [address] [id number] 03/01/2024 8:00 EDT Appointment [facility] Radiology Nuclear Medicine and PET - [address] [phone] 03/01/2024 9:30 EDT Appointment [facility] Radiology Nuclear Medicine and PET - [address] [phone] documented as of this encounter Visit Diagnoses Not on filedocumented in this encounter
--- OUTSIDE RECORDS SUMMARY | 2024-02-06 13:40 | XMS_ITS | Encounter Summary ---
Author Organization [facility] Address [address] [place] [address] Care Team Providers Care Banbury Machine Operator Name Role Phone None, Provider Primary Care Provider Unavailabl e Reason for Visit * Reason Comments Social Work Encounter Details Date Type Department Care Team (Late st Contact Info) Description 10/12/2019 Community Health Team [facility] Women's Services - [address] [address] Eryn Diaz Social History Tobacco Use Types [...] step francois, and 3 foster children in [place]. Pt grateful Fermin took the children to [...] the following re care coordination: - Disc [facility] therapeutic group practice in [place] that specializes in working with women who have exp losses - Disc psychiatric and add'l loss support that can be provided via [facility] Denita Brantley or Dr. 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 SW disc it's [...] copy Jordyn and David as a fyi. [facility] Total Time: 55 min total 20 min via ph with pt 20 min care coord 15 min charting Referral: n/a Follow up: Date: Wednesday, October 16, 2019 Time: 11:30 AM With: Eryn Diaz Shared Services Manager Location: ph Status: Active documented in this encounter Plan of Treatment Upcoming Encounters Date Type Department Care Team (Late st Contact Info) Description 02/21/2024 9:45 EDT Office Visit [facility] Adult Primary Care - [address] 217201 Carrington Calderon MD [address] [phone] 02/27/2024 8:30 EDT Telemedicine [facility] Sleep Program - [address] [phone] Dwight Colbert [address] [place] [address] [phone] 02/29/2024 10:30 EDT Appointment [facility] Radiology Nuclear Medicine and PET [address] [id number] 02/29/2024 14:30 EDT Appointment [facility] Radiology Nuclear Medicine and PET - [address] [id number] 03/01/2024 8:00 EDT Appointment [facility] Radiology Nuclear Medicine and PET [address] [phone] 03/01/2024 9:30 EDT Appointment [facility] Radiology Nuclear Medicine and PET [address] [phone] documented as of this encounter Visit Diagnoses Not on filedocumented in this encounter Care Teams Banbury Machine Operator Relationship Specialty Start Date End Date None, Provider PCP - General 06/18/19 11/25/19 documented as of this encounter
--- OUTSIDE RECORDS SUMMARY | 2024-02-06 13:40 | XMS_ITS | Encounter Summary ---
Author Organization [facility] Address [address] [place] [address] Care Team Providers Care Campground Hand Name Role Phone None, Provider Primary Care Provider Unavailabl e Reason for Visit * Reason Onset Date Comments Follow-up 10/15/2019 Encounter Details Date Type Department Care Team (Late st Contact Info) Description 10/15/2019 Telephone [facility] Women's Services [facility] [address] [place] [address] Susana Tomlinson, RN Follow-up Social History Tobacco [...] Encounter - Susana Tomlinson RN - 10/15/2019 0912 EDT Spoke with Cristy: her cramping is [...] thru this again. She will call [facility] at [phone] to set up a Control talk to [...] Visit [facility] Adult Primary Care - [address] [phone] Carrington Calderon MD 1 [facility] 1 [place] [address] 02/27/2024 8:30 EDT Telemedicine [facility] Sleep Program - [address] [address] Dwight Colbert [address] [place] [phone] (Meli) [phone] (Fax) 02/29/2024 10:30 EDT [facility] and PET [address] [phone] 02/29/2024 14:30 EDT Appointment [facility] Radiology Nuclear Medicine and PET [address] [phone] 03/01/2024 8:00 EDT Appointment [facility] Radiology Nuclear Medicine and PET [address] [id number] 03/01/2024 9:30 EDT Appointment [facility] Radiology Nuclear Medicine and PET [address] [phone] documented as of this encounter Visit Diagnoses Not on filedocumented in this encounter Care Teams Campground Hand Relationship Specialty Start Date End Date None, Provider PCP - General 06/18/19 11/25/19 documented as of this encounter
--- OUTSIDE RECORDS SUMMARY | 2024-02-06 13:40 | XMS_ITS | Encounter Summary ---
Author Organization [facility] Address [address] [place] [address] Care Team Providers Care Microchip Specialist Name Role Phone Unavailable Primary Care Provider Unavailabl e Reason for Referral * Radiology Services (Routine) - Closed Specialty Diagnoses / Procedures Referred By Contac t Referred To Contact Radiology Diagnoses Left foot pain Sore on toe Procedures MR FOOT W WO CONTRAST LEFT Tonja Alejandro PA-C [address] [place] [phone] Referral ID Status Reason Start Date Expiration Date Visits Re quested Visits Authorized [id number] Closed 11/28/2019 1 1 Reason for Visit * Radiology Services (Routine) - Closed Specialty Diagnoses / Procedures Referred By Contac t Referred To Contact Radiology Diagnoses Left foot pain Sore on toe Procedures MR FOOT W WO CONTRAST LEFT Tonja Alejandro PA-C [address] [place] [phone] Referral ID Status Reason Start Date Expiration Date Visits Re quested Visits Authorized [id number] Closed 11/28/2019 1 1 Encounter Details Date Type Department Care Team (Latest Contact Info) Description 12/05/2019 6:33 EDT - 12/05/2019 10:29 EDT [facility] Radiology MRI - [facility] [place] [address] [place] [address] Left foot pain; Sore on toe Discharge [...] [facility] Adult Primary Care - [address] [phone] Carrington Calderon MD [address] [phone] 02/27/2024 8:30 EDT Telemedicine [facility] Sleep Program - [address] [address] Dwight Colbert [address] [place] [phone] 02/29/2024 10:30 ED[facility] - [address] [id number] 02/29/2024 14:30 EDT Appointment [facility] Radiology Nuclear Medicine and PET - [address] [id number] 03/01/2024 8:00 EDT [facility]ointment [facility] Radiology Nuclear Medicine and PET - [address] [id number] 03/01/2024 9:30 EDT Appointment [facility] Radiology Nuclear Medicine and PET - [address] [address] documented as of this encounter Procedures Procedure [...]
--- OUTSIDE RECORDS SUMMARY | 2024-02-06 13:40 | XMS_ITS | Encounter Summary ---
Author Organization [facility] Address [address] [place] [address] Care Team Providers Care Youtuber Name Role Phone None, Provider Primary Care Provider Unavailabl e Reason for Visit * Reason Comments Procedure SARAH * Consult (3 - 10 Business Days) - Closed Specialty Diagnoses / Procedures Referred By Contac t Referred To Contact Diagnoses in first trimester Andrés Mcfarlane MD [address] [facility] 1 [place] [address] [facility] Ep4 Ob/Mfm [address] [place] [address] Referral ID Status Reason Start Date Expiration Date V isits Requested Visits Authorized [id number] Closed Specialty Services Required 10/11/2019 1 1 Encounter Details Date Type Department Care Team (Late st Contact Info) Description 10/12/2019 15:00 EDT Initial consult [facility] Medical Center Women's Services - [address] [address] David Martínez MD [address] [place] [address] 4 [place] [address] Missed (Primary Dx) Social History [...] consent, the patient was placed on the [employer] WORK[employer]OW CONSULTANT exam table and a bedside ultrasound performed. [...] [facility] Adult Primary Care - [address] [address] Carrington Calderon MD [address] [address] 02/27/2024 8:30 EDT Telemedicine [facility] Sleep Program - [address] 028121 Dwight Colbert [address] [place] [address] [phone] 02/29/2024 10:30 EDT Appointment [facility] Radiology Nuclear Medicine and PET [address] [phone] 02/29/2024 14:30 EDT Appointment [facility] Radiology Nuclear Medicine and [address] [phone] 03/01/2024 8:00 EDT Appointment [facility] Radiology Nuclear Medicine and PET [address] 025151 03/01/2024 9:30 EDT Appointment [facility] Radiology Nuclear Medicine and PET [address] [phone] documented as of this encounter Visit Diagnoses Diagnosis Missed - Primary documented in this encounter Care Teams Youtuber Relationship Specialty Start Date End Date None, Provider PCP - General 06/18/19 11/25/19 documented as of this encounter
--- OUTSIDE RECORDS SUMMARY | 2024-02-06 13:40 | XMS_ITS | Encounter Summary ---
Author Organization [facility] Address [address] [place] [address] Care Team Providers Care Nursing Clinical Director Name Role Phone None, Provider Primary Care Provider Unavailabl e Reason for Visit * Reason Onset Date Comments Other 10/12/2019 Follow up call , seen in ED with vaginal bleeding, miscarriage. Encounter Details Date Type Department Care Team (Late st Contact Info) Description 10/12/2019 Telephone [facility] Women's Services - [address] [address] Jordyn Wolfe, MARCELO Other (Follow up call [...] have office D&C today if possible. Dr. aMrtínez will review patient's chart and contact patient if staffing is available to do this today. Per communication with nurse career development manager Mary, will be able to staff procedure today. Appointment set up for [address] Martínez will call patient to confirm plan. * Telephone Encounter - Jordyn Wolfe RN - 10/12/2019 1027 EDT Call to social science instructor Niru Diaz. Niru will call patient as follow up intake counselor to miscarriage. * Telephone Encounter - [...] [facility] [place] - [address] 754171 Carrington Calderon MD [address] [address] 02/27/2024 8:30 EDT Telemedicine [facility] Sleep Program - [address] [address] Dwight Colbert [address] [place] [address] [phone] 02/29/2024 10:30 EDT Appointment [facility] Radiology Nuclear Medicine and PET - [address] 961301 02/29/2024 14:30 EDT Appointment [facility] Radiology Nuclear Medicine and PET - [address] [phone] 03/01/2024 8:00 EDT Appointment [facility] Radiology Nuclear Medicine and PET - [address] [phone] 03/01/2024 9:30 EDT Appointment [facility] Radiology Nuclear [place] [address] documented as of this encounter Visit Diagnoses Not on filedocumented in this encounter Care Teams Nursing Clinical Director Relationship Specialty Start Date End Date None, Provider PCP - General 06/18/19 11/25/19 documented as of this encounter
--- OUTSIDE RECORDS SUMMARY | 2024-02-06 13:40 | XMS_ITS | Encounter Summary ---
Author Organization [facility] Address [address] [place] [address] Care Team Providers Care Motor Coach Tour Operator Name Role Phone None, Provider Primary Care Provider Unavailabl e Reason for Visit * Reason Onset Date Comments Other 10/15/2019 Encounter Details Date Type Department Care Team (Late st Contact Info) Description 10/15/2019 Telephone [facility] Women's Services - [address] [address] Jordyn Wolfe, MARCELO Other Social History Tobacco [...] Info) Description 02/21/2024 9:45 EDT Office Visit [facility] Adult Primary Care - [address] [phone] Carrington Calderon MD [address] [phone] 02/27/2024 8:30 EDT Telemedicine [facility] Sleep Program - [address] 325391 Dwight Colbert [address] [place] [address] [phone] 02/29/2024 10:[address] [facility] Radiology Nuclear Medicine and PET - [address] 051191 02/29/2024 14:[address] [facility] Radiology Nuclear Medicine and PET - [facility] [address] [place], [place] [phone] 03/01/2024 8:[address] [facility] Radiology Nuclear Medicine and PET [address] [phone] 03/01/2024 9:[address] [facility] Radiology Nuclear Medicine and PET [address] [phone] documented as of this encounter Visit Diagnoses Not on filedocumented in this encounter Care Teams Motor Coach Tour Operator Relationship Specialty Start Date End Date None, Provider PCP - General 06/18/19 11/25/19 documented as of this encounter
--- OUTSIDE RECORDS SUMMARY | 2024-02-06 13:40 | XMS_ITS | Encounter Summary ---
Author Organization [facility] Address [address] [place] [address] Care Team Providers Care Rn Geriatric Name Role Phone None, Provider Primary Care Provider Unavailabl e Encounter Details Date Type Department Care Team (Late st Contact Info) Description 10/04/2019 Orders Only [facility] Obstetrics & Midwifery - [address] [address] Kylah Jimenes, RN Social History Tobacco Use [...] [facility] - [address] [address] Carrington Calderon MD [address] [address] 02/27/2024 8:30 EDT Telemedicine [facility] Sleep Program - [address] 959831 Dwight Colbert [address] [place] [address] [phone] 02/29/2024 10:30 EDT Appointment [facility] Radiology Nuclear Medicine and PET [address] 966171 02/29/2024 14:30 EDT Appointment [facility] Radiology Nuclear Medicine and PET [address] 114521 03/01/2024 8:00 EDT Appointment [facility] Radiology Nuclear Medicine and PET [address] 158941 03/01/2024 9:30 EDT Appointment [facility] Radiology Nuclear Medicine and PET [address] [phone] documented as of this encounter Visit Diagnoses Not on filedocumented in this encounter Care Teams Rn Geriatric Relationship Specialty Start Date End Date None, Provider PCP - General 06/18/19 11/25/19 documented as of this encounter
--- OUTSIDE RECORDS SUMMARY | 2024-02-06 13:40 | XMS_ITS | Encounter Summary ---
Author Organization [facility] Address [address] [place] [address] Care Team Providers Care Plant Operations Vice President Name Role Phone Unavailable Primary Care Provider Unavailabl e Reason for Visit * Reason Onset Date Comments Labs Only 12/05/2019 Encounter Details Date Type Department Care Team (Late st Contact Info) Description 12/05/2019 Telephone [facility] Women's Services - [address] 640791 Charu Flynn MD 111 [facility] Level [address] [place] [address] Labs Only Social History Tobacco [...] you can call Pre Op back at [phone]. documented in this encounter Plan of Treatment Upcoming Encounters Date Type Department Care Team (Late st Contact Info) Description 02/21/2024 9:45 EDT Office Visit [facility] Adult Primary Care - [address] 129521 Carrington Calderon MD 1 [facility] 1 [place] [phone] 02/27/2024 8:30 EDT Telemedicine [facility] Sleep Program - [address] [phone] Dwight Colbert [address] [place] [address] [phone] 02/29/2024 10:30 EDT [facility]ointment [facility] Radiology Nuclear Medicine and PET - [address] [address] 02/29/2024 14:30 EDT Appointment [facility] Radiology Nuclear Medicine and PET - [address] [address] 03/01/2024 8:00 EDT Appointment [facility] Radiology Nuclear Medicine and PET - [address] [address] 03/01/2024 9:30 EDT Appointment [facility] Radiology Nuclear Medicine and PET - [address] [address] documented as of this encounter Visit Diagnoses Not on filedocumented in this encounter
--- OUTSIDE RECORDS SUMMARY | 2024-02-06 13:40 | XMS_ITS | Encounter Summary ---
Author Organization [facility] Address [address] [place] [address] Care Team Providers Care Engineering Technician Name Role Phone Unavailable Primary Care Provider Unavailabl e Reason for Visit * Reason Onset Date Comments Results 11/30/2019 Encounter Details Date Type Department Care Team (Late st Contact Info) Description 11/30/2019 Telephone [facility] Adult Primary Care - [address] 087191 Tonja Alejandro PA-C [address] [place] [address] [place] [phone] Results Social History Tobacco Use Types [...] [facility] Adult Primary Care - [address] [phone] Carrington Calderon MD 1 [facility] 1 [place] [phone] 02/27/2024 8:30 EDT Telemedicine [facility] Sleep Program - [address] [place] [address] Dwight Colbert [address] [place] [address] 02/29/2024 10:30 EDT Appointment [facility] Radiology Nuclear Medicine and PET - [address] [address] 02/29/2024 14:30 EDT Appointment [facility] Radiology Nuclear Medicine and PET - [address] 330241 03/01/2024 8:00 EDT Appointment [facility] Radiology Nuclear Medicine and PET - [address] 655171 03/01/2024 9:30 EDT Appointment [facility] Radiology Nuclear Medicine and PET - [address] [phone] documented as of this encounter Visit Diagnoses Diagnosis Leukocytosis, unspecified type- Primary documented in this encounter
--- OUTSIDE RECORDS SUMMARY | 2024-02-06 13:40 | XMS_ITS | Encounter Summary ---
Author Organization [facility] Address [address] [place] [address] Care Team Providers Care Drag Sawyer Name Role Phone None, Provider Primary Care [...] [facility] Adult Primary Care - [address] 394031 Carrington Calderon MD 1 [facility] 1 [place] [address] 02/27/2024 8:30 EDT Telemedicine [facility] Sleep Program - [address] 898771 Dwight Colbert [address] [place] [address] [phone] 02/29/2024 10:30 EDT Appointment [facility] Radiology Nuclear Medicine and PET [address] [phone] 02/29/2024 14:30 EDT Appointment [facility] Radiology Nuclear Medicine and PET [address] 387291 03/01/2024 8:00 EDT Appointment [facility] Radiology Nuclear Medicine and PET [address] 898191 03/01/2024 9:30 EDT Appointment [facility] Radiology Nuclear Medicine and PET [address] [phone] documented as of this encounter Visit Diagnoses Not on filedocumented in this encounter Care Teams Drag Sawyer Relationship Specialty Start Date End Date None, Provider PCP - General 06/18/19 11/25/19 documented as of this encounter
--- OUTSIDE RECORDS SUMMARY | 2024-02-06 13:40 | XMS_ITS | Encounter Summary ---
Author Organization [facility] Address [address] [place] [address] Care Team Providers Care Well Logging Captain Mud Analysis Name Role Phone Unavailable Primary Care Provider Unavailabl e Encounter Details Date Type Department Care Team (Latest Contact Info) Description 12/05/2019 10:30 EDT - 12/05/2019 23:59 EDT Hospital Encounter [facility] Pre-Surgical Testing [address] [place], [place] 064761 Discharge Disposition: Home or Self Care Social [...] instruct them to call us back at [phone] to report symptoms (If patient is in [...] - Visitors must have mask for pickup. LICENSED BONDSMAN will provide steel pickler instructions when Pt is ready for DC. [...] [facility] - [address] 729461 Carrington Calderon MD [address] [place] [phone] 02/27/2024 8:30 EDT Telemedicine [facility] Sleep Program - [address] 548901 Dwight Colbert [address] [place], [place] 993571 02/29/2024 10:30 EDT [facility]ointment [facility] Radiology Nuclear Medicine and PET - [address] [address] 02/29/2024 14:30 EDT Appointment [facility] Radiology Nuclear Medicine and PET [address] [address] 03/01/2024 8:00 EDT Appointment [facility] Radiology Nuclear Medicine and PET [address] [address] 03/01/2024 9:30 EDT Appointment [facility] Radiology Nuclear Medicine and PET [address] [address] documented as of this encounter Visit Diagnoses Not on filedocumented in this encounter Discontinued Medications Medication Sig Discontinue Reason Start Date End Da te folic acid (FOLVITE) 1 mg tablet Take 4 Tabs by mouth daily. Therapy completed 10/01/2019 12/05/2019 documented as of this encounter
--- OUTSIDE RECORDS SUMMARY | 2024-02-06 13:40 | XMS_ITS | Encounter Summary ---
Author Organization [facility] Address [address] [place] [address] Care Team Providers Care Recreation Supervisor Name Role Phone None, Provider Primary Care Provider Unavailabl e Reason for Visit * Reason Onset Date Comments Appointment Related 10/12/2019 Encounter Details Date Type Department Care Team (Late st Contact Info) Description 10/12/2019 Telephone [facility] [address] [place] [address] Karoline Wolfe, MARCELO Appointment Related Social History [...] Call to patient. I spoke to patient. payroll and benefits manager Mary Hurtado and Dr. Martínez approve if [...] [facility] Adult Primary Care - [address] [phone] Carrington Calderon MD 1 [facility] 1 [place] [phone] 02/27/2024 8:30 EDT Telemedicine [facility] Sleep Program - [address] [phone] Dwight Colbert [address] [place] [address] [phone] 02/29/2024 10:30 EDT Appointment [facility] Radiology Nuclear Medicine and PET - [address] [address] 02/29/2024 14:30 EDT [facility]ointment [facility] Radiology Nuclear Medicine and PET - [address] [address] 03/01/2024 8:00 EDT [facility]ment [facility] Radiology Nuclear Medicine and PET - [address] [address] 03/01/2024 9:30 EDT Appointment [facility] Radiology Nuclear Medicine and PET - [address] [address] documented as of this encounter Visit Diagnoses Diagnosis Recurrent loss- Primary documented in this encounter Care Teams Recreation Supervisor Relationship Specialty Start Date End Date None, Provider PCP - General 06/18/19 11/25/19 documented as of this encounter
--- OUTSIDE RECORDS SUMMARY | 2024-02-06 13:40 | XMS_ITS | Encounter Summary ---
Author Organization [facility] Address [address] [place] [address] Care Team Providers Care Adoption Manager Name Role Phone Unavailable Primary Care Provider Unavailabl e Reason for Referral * Consult (Routine) - Specialty Report Received Specialty Diagnoses / Procedures Referred By [facility] t Referred To Contact Endocrinology Diagnoses Type 2 diabetes mellitus with other specified complication, unspecified whether survey research professor insulin use ([facility]) Teodoro Alejandro PA-C [address] [place] [address] [facility] Endocrinology [address] [place] [id number] Referral ID Status Reason Start Date Expiration Date Visits Requested Visits Authorized [id number] Specialty Report Received Specialty Services Required 11/27/2019 [...] Team ([facility] Contact Info) Description 11/26/2019 15:30 EDT Telemedicine [facility] Adult Primary Care [facility] [address] [place] [address] Teodoro Alejandro PA-C 62 [facility] [address] [place] [address] Type 2 diabetes mellitus with other specified complication, unspecified whether halfway insulin use ([facility]) (Primary Dx); Left foot pain; Anxiety and [...] Lantus 25 units in the morning and [id number] mg once a day. Her fasting sugars [...] in October 2019. She follows up with [facility] the women[facility] center. She is scheduled for a tubal procedure on December 13. 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 She did go to [facility] and had x-rays and was told [...] mellitus with other specified complication, unspecified whether halfway insulin use ([facility]) Patient has type 2 diabetes that [...] [facility] Adult Primary Care - [address] [phone] Carrington Calderon MD [address] [phone] 02/27/2024 8:30 EDT Telemedicine [facility] Sleep Program - [address] [phone] Dwight Colbert [address] [place] [phone] 02/29/2024 10:30 EDT Appointment [facility] Radiology Nuclear Medicine and PET [address] [phone] 02/29/2024 14:30 EDT Appointment [facility] Radiology Nuclear Medicine and PET [address] [phone] 03/01/2024 8:00 EDT Appointment [facility] Radiology Nuclear Medicine and PET [address] [phone] 03/01/2024 9:30 EDT Appointment [facility] Radiology Nuclear Medicine and PET [address] [phone] Scheduled Referrals Name Type Priority Associated Diagnoses Order Schedule AMB CONS/FOLLOW UP ENDOCRINOLOGY Outpatient Referral Routine Type 2 diabetes mellitus with other specified complication, unspecified whether survey research professor insulin use ([facility]) Ordered: 11/27/2019 documented as of this encounter Results * (ABNORMAL) C REACTIVE PROTEIN (11/28/2019 15:56 EDT) C-Reactive Protein 10.6(H) <10.0 mg/L 11/28/2019 17:12 [facility] Blood VENOUS BLOOD / Unknown Venipuncture / Unknown 11/28/2019 15:56 EDT 11/28/2019 15:56 EDT Teodoro Alejandro PA-C CHEMISTRY & BLOOD GAS ORDERABLES [facility] [address] [place] [address] * (ABNORMAL) COMPREHENSIVE METABOLIC PANEL (CMP) (11/28/2019 15:56 EDT) Sodium 134(L) 136 - 145 mEq/L 11/28/2019 17:12 [facility] Potassium 4.2 3.5 - 5.0 mEq/L 11/28/2019 17:12 [facility] Chloride 100 96 - 110 mEq/L 11/28/2019 17:12 [facility] CO2 Total 28 22 - 32 mEq/L 11/28/2019 17:12 [facility] Glucose 301(H) 70 - 100 mg/dL 11/28/2019 17:12 [facility] BUN 14 10 - 26 mg/dL 11/28/2019 17:12 [facility] Creatinine 0.57 0.52 - 1.04 mg/dL 11/28/2019 17:12 [facility] eGFR 121 >60 mL/min/1.7 3m2 11/28/2019 17:12 [facility] Comment:eGFR calculated usin g CKD-EPI equation for non- Americans. Multiply eGFR by 1.16 for patients. Total Protein 7.0 6.3 - 8.2 g/dL 11/28/2019 17:12 [facility] Albumin 3.9 3.4 - 4.9 g/dL 11/28/2019 17:12 [facility] Alkaline Phosphatase 100 38 - 126 U/L 11/28/2019 17:12 [facility] AST 17 15 - 46 U/L 11/28/2019 17:12 EDT [facility] ALT 14 <35 U/L 11/28/2019 17:12 [facility] Bilirubin, Total <0.5 <1.4 mg/dL 11/28/19 17:12 [facility] Calcium 9.8 8.5 - 10.5 mg/dL 11/28/2019 17:12 [facility] Calculated Calcium 9.9 8.5 - 10.5 mg/dL 11/28/2019 17:12 [facility] Blood VENOUS BLOOD / Unknown Venipuncture / Unknown 11/28/2019 15:56 EDT 11/28/2019 15:56 EDT Teodoro Alejandro PA-C CHEMISTRY & BLOOD GAS ORDERABLES [facility] [address] [place] [address] * (ABNORMAL) COMPLETE BLOOD COUNT AND DIFFERENTIAL (11/28/2019 15:56 EDT) WBC 14.38(H) 4.00 - 12.40 K/cmm 11/28/2019 17:04 [facility] RBC 4.69 3.86 - 5.04 M/cmm 11/28/2019 17:04 [facility] Hemoglobin 14.3 11.6 - 15.2 gm/dL 11/28/2019 17:04 [facility] HCT 40.8 34.9 - 44.4 % 11/28/2019 17:04 [facility] MCV 87 81 - 98 fl 11/28/2019 17:04 [facility] MCH 30.5 26.7 - 33.3 pg 11/28/2019 17:04 [facility] MCHC 35.0 32.1 - 35.9 gm/dL 11/28/2019 17:04 [facility] RDW-CV 12.0 <14.7 % 11/28/2019 17:04 [facility] RDW-SD 38.4 <50.4 fl 11/28/2019 17:04 EDT [facility] PLT 414(H) 141 - 377 K/cmm 11/28/2019 17:04 EDT [facility] MPV 10.1 9.5 - 12.7 fl 11/28/2019 17:04 EDT [facility] Type of Differential: Manual 11/28/2019 17:04 T [facility] Blood VENOUS BLOOD / Unknown Venipuncture / Unknown 11/28/2019 15:56 EDT 11/28/2019 15:56 EDT Teodoro Alejandro PA-C PACKAGES & D NA PROBE ORDERABLES [facility] [address] [place] [address] * (ABNORMAL) HEMOGLOBIN A1C (11/28/2019 15:56 EDT) Hemoglobin A1c 10.3(H) <5.7 % 11/29/2019 9:15 T [facility] Comment: Glycemic Status [...] Avg Glucose 249 mg/dL 0 9:15 T [facility] Comment: The eAG represents the A1c result expressed as average glucose in mg/dL. Blood VENOUS BLOOD / Unknown Venipuncture / Unknown 11/28/2019 15:56 EDT 11/28/2019 15:56 EDT Teodoro Alejandro PA-C CHEMISTRY & BLOOD GAS ORDERABLES Performing Organization Address [facility] Co de Phone Number [facility] [address] [place] [address] * THYROID CASCADE (11/28/2019 15:56 EDT) TSH 0.64 0.47 - 4.68 uIU/mL 11/28/2019 17:44 EDT [facility] Blood VENOUS BLOOD / Unknown Venipuncture / Unknown 11/28/2019 15:56 EDT 11/28/2019 15:56 EDT Narrative [facility] - 11/28/2019 17:44 EDT NOTE: TSH Morris is not recommended for patients in which pituitary or hypothalamic disorders are suspected. The results of this assay can be falsely lowered due to the consumption of Biotin. Teodoro Alejandro PA-C CHEMISTRY & BLOOD GAS ORDERABLES Performing Organization Address [facility] Co de Phone Number [facility] [address] [place] [address] * LIPID PROFILE (INCLUDES CHOLESTEROL, TRIGLYCERIDES, HDL, LDL) (11/28/2019 15:56 EDT) Pathologist [facility] Cholesterol 179 See Note mg/dL 11/28/2019 17:12 EDT [facility] Comment: Acceptable: ?<200 mg/dL Borderline High: 200-239 mg/dL High: ?> or = 240 mg/dL HDL 38 See Note mg/dL 11/28/2019 17:12 EDT [facility] Comment: Low: ? <40 mg/dL Normal: ??40-60 mg/dL High: ?>60 mg/dL LDL, Calculated 61 See Note mg/dL 11/28/2019 17:12 EDT [facility] Comment: Optimal: ? <100 mg/dL Near Optimal: ?100-129 mg/dL Borderline High: 130-159 mg/dL High: ?160-189 mg/dL Very High: ? > or = 190 mg/dL Triglyceride 398 See Note mg/dL 11/28/2019 17:12 EDT [facility] Comment: Normal: ? <150 mg/dL Borderline High: ??150 - 199 mg/dL High: ? 200 - 499 mg/dL Very High: ?> or = 500 mg/dL Chol/HDL Ratio 4.7 See Note 11/28/2019 17:12 EDT [facility] Comment: No reference range has been established for CHOL/HDL ratio. Non HDL Cholesterol 141 See Note mg/dL 11/28/2019 17:12 T [facility] Comment: Desirable: ?<130 mg/dL Borderline High: ??130-159 mg/dL High: ? 160-189 mg/dL Very High: ?> or = 190 mg/dL Blood VENOUS BLOOD / Unknown Venipuncture / Unknown 11/28/2019 15:56 EDT 11/28/2019 15:56 EDT Teodoro Alejandro PA-C CHEMISTRY & BLOOD GAS ORDERABLES [facility] [address] [place] [address] * (ABNORMAL) ALBUMIN, URINE (11/28/2019 15:56 EDT) Albumin, Urine 11.3 See Note mg/dL 2019 16:47 EDT [facility] Comment: NOTE: Reference range not established Creatinine, Urine 143.1 See Note mg/dL 11/28/2019 16:47 T [facility] Comment: NOTE: Reference range not established Lab Urine Albumin to Creatinine Ratio 79(H) <30 ug/mg Creatinine 11/28/2019 16:47 EDT [facility] Comment: Urine Albumin/Creatinine Ratio: Normal: <30 ug/mg Creatinine Moderately increased albuminuria: 30-300 ug/mg Creatinine Jatinder increased albuminuria: >300 ug/mg Creatinine Urine URINE SPECIMEN OBTAINED BY CLEAN CATCH PROCEDURE / Unknown Urine Collect / Unknown 11/28/2019 15:56 EDT 11/28/2019 15:56 EDT Teodoro Alejandro PA-C CHEMISTRY & BLOOD GAS ORDERABLES [facility] [address] [place] [address] documented in this encounter Visit Diagnoses Diagnosis Type 2 diabetes mellitus with other specified complication, unspecified whether survey research professor insulin use ([facility])- Primary Left foot pain Pain in limb [...]
--- OUTSIDE RECORDS SUMMARY | 2024-02-06 13:40 | XMS_ITS | Encounter Summary ---
Author Organization [facility] Address [address] [place] [address] Care Team Providers Care Low Pressure Boiler Operator Name Role Phone None, Provider Primary Care Provider Unavailabl e Reason for Visit * Reason Comments Dental Pain inside lower abscess near gum.bilateral Encounter Details Date Type Department Care Team (Latest Contact Info) Description 10/28/2019 14:26 EDT - 10/28/2019 15:11 EDT Hospital Encounter [facility] [address] [place] [address] Monique Gramajo, GUSTAVO [address] [place] [phone] Gingivitis (Primary Dx) Discharge Disposition: Home or [...] sent through Care Everywhere. * Periodontal Conditions (Swazi) documented in this encounter Medications at Time [...] this encounter ED Notes * Monique Gramajo, CLINICAL STAFF RN - 10/28/2019 1500 EDT DOS: 10/28/2019 Chief [...] tried any treatment. Did call her [facility] ([facility] but they can't see her until Tuesday. [...] PCR results found No results found for: [id number] HgA1c [ ] 1T pending [ ] [...] in past 80u, Followed by endocrine in [facility]. Stopped few yrs ago until this past month. ??? Anxiety and depression 05/12/2010 Onset teen yrs. Treated with citalopram in approx 2012 - had SI, treated at [facility]. Marijuana prn to help with stress/anxiety sx. [...] of further medications. Upon departure from [facility], the patient's pain was 6 on a zero to ten scale. Any further pain treatment will be at the discretion of the provider following up with the patient based on their clinical assessment . Condition at departure from the [facility] : Stable MDM 10/28/2019 [...] Visit [facility] Adult Primary Care - [address] [phone] Carrington Calderon MD [address] [phone] 02/27/2024 8:30 EDT Telemedicine [facility] Sleep Program - [address] [phone] Dwight Colbert [address] [place] [address] [phone] 02/29/2024 10:30 EDT Appointment [facility] Radiology Nuclear Medicine and PET - [address] [phone] 02/29/2024 14:30 EDT Appointment [facility] Radiology Nuclear Medicine and PET [address] [address] 03/01/2024 8:00 EDT Appointment [facility] Radiology Nuclear Medicine and PET - [address] [address] 03/01/2024 9:30 EDT Appointment [facility] Radiology Nuclear Medicine and PET [address] [address] documented as of this encounter Visit Diagnoses Diagnosis Gingivitis- Primary Chronic gingivitis, plaque induced documented in this encounter Care Teams Low Pressure Boiler Operator Relationship Specialty Start Date End Date None, Provider PCP - General 06/18/19 11/25/19 documented as of this encounter
--- OUTSIDE RECORDS SUMMARY | 2024-02-06 13:40 | XMS_ITS | Encounter Summary ---
Author Organization [facility] Address [address] [place] [address] Care Team Providers Care Camouflage Specialist Name Role Phone None, Provider Primary Care Provider Unavailabl e Reason for Visit * Reason Onset Date Comments COVID-19 11/22/2019 Encounter Details Date Type Department Care Team (Late st Contact Info) Description 11/22/2019 Orders Only [facility] Women's Services [address] [address] Susana Tomlinson, RN Sterilization (Primary Dx) Social [...] [facility] Adult Primary Care - [address] [phone] Carrington Calderon MD [address] [phone] 02/27/2024 8:30 EDT Telemedicine [facility] Sleep Program - [address] [phone] Dwight Colbert [address] [place] [phone] 02/29/2024 10:30 EDT Appointment [facility] Radiology Nuclear Medicine and PET - [address] [address] 02/29/2024 14:30 EDT [facility]ointment [facility] Radiology Nuclear Medicine and PET [address] [phone] 03/01/2024 8:00 EDT Appointment edical [place] Radiology Nuclear Medicine and PET [address] [phone] 03/01/2024 9:30 EDT Appointment [facility] Radiology Nuclear Medicine and PET [address] [phone] documented as of this encounter Visit Diagnoses Diagnosis Sterilization- Primary documented in this encounter Care Teams Camouflage Specialist Relationship Specialty Start Date End Date None, Provider PCP - General 06/18/19 11/25/19 documented as of this encounter
--- OUTSIDE RECORDS SUMMARY | 2024-02-06 13:40 | XMS_ITS | Encounter Summary ---
Author Organization [facility] Address [address] [place] [address] Care Team Providers Care Plastics Design Engineer Name Role Phone None, Provider Primary Care Provider Unavailabl e Reason for Visit * Reason Comments Advice Only patient states I w ant a tubal, cut, tie, burn. I want no more chances of or miscarriage Encounter Details Date Type Department Care Team (Latest Contact Info) Description 11/02/2019 8:15 EDT Initial consult [facility] Women's Services - [address] [address] Patricia Sifuentes MD [address] [place] [phone] Consultation for female sterilization (Primary Dx) [...] 11/02/2019 9:08 Obstetrics & Gynecology, PGY-1 Pager [phone] * Callum Callejas MD - 11/02/2019 0815 [...] [facility] [address] [address] Carrington Calderon MD [address] [place] [phone] 02/27/2024 8:30 EDT Telemedicine [facility] Sleep Program - [address] [address] Dwight Colbert [address] [place] [phone] 02/29/2024 10:30 EDT Appointment [facility] Radiology Nuclear Medicine and [address] [phone] 02/29/2024 14:30 EDT Appointment [facility] Radiology Nuclear Medicine and [address] [phone] 03/01/2024 8:00 EDT Appointment [facility] Radiology Nuclear Medicine and PET [address] [phone] 03/01/2024 9:30 EDT Appointment [facility] Radiology Nuclear Medicine and [address] [phone] documented as of this encounter Visit Diagnoses [...] documented as of this encounter Care Teams Plastics Design Engineer Relationship Specialty Start Date End Date None, Provider PCP - General 06/18/19 11/25/19 documented as of this encounter
--- OUTSIDE RECORDS SUMMARY | 2024-02-06 13:40 | XMS_ITS | Encounter Summary ---
Author Organization [facility] Address [address] [place] [address] Care Team Providers Care Outboard Motor Inspector Name Role Phone Unavailable Primary Care Provider Unavailabl e Reason for Visit * Reason Comments Social Work Encounter Details Date Type Department Care Team (Late st Contact Info) Description 11/26/2019 Community Health Team [facility] Women's Services - [address] [address] Eryn Diaz Social History Tobacco Use Types [...] zoom meeting link as appt gets closer. [facility] Total Time: 1 hour total 45 min via zoom with pt 15 min charting Referral: n/a Follow up: Date: Thursday, December 19, 2019 Time: 11 AM With: Eryn Diaz Plant Packer Location: zoom Status: Active documented in this encounter Plan of Treatment Upcoming Encounters Date Type Department Care Team (Late st Contact Info) Description 02/21/2024 9:45 EDT Office Visit [facility] Adult Primary Care - [address] [phone] Carrington Calderon MD [address] [phone] 02/27/2024 8:30 EDT Telemedicine [facility] Sleep Program - [address] [phone] Dwight Colbert [address] [place] [phone] 02/29/2024 10:30 EDT Appointment [facility] Radiology Nuclear Medicine and PET [address] [phone] 02/29/2024 14:30 EDT Appointment [facility] Radiology Nuclear Medicine and PET - [address] [phone] 03/01/2024 8:00 EDT Appointment [facility] Radiology Nuclear Medicine and PET [address] [phone] 03/01/2024 9:30 EDT Appointment [facility] Radiology Nuclear Medicine and PET [address] [phone] documented as of this encounter Visit Diagnoses Not on filedocumented in this encounter
--- OUTSIDE RECORDS SUMMARY | 2024-02-06 13:40 | XMS_ITS | Encounter Summary ---
Author Organization [facility] Address [address] [place] [address] Care Team Providers Care Abnormal Psychology Teacher Name Role Phone Unavailable Primary Care [...] Description 02/21/2024 9:45 EDT Office Visit [facility] Adult Primary Care - [address] [address] Carrington Calderon MD [address] [phone] 02/27/2024 8:30 EDT Telemedicine [facility] Sleep Program - [address] [address] Dwight Colbert [address] [place] [phone] 02/29/2024 10:30 EDT Appointment [facility] Radiology Nuclear Medicine and PET [address] [phone] 02/29/2024 14:30 EDT Appointment [facility] Radiology Nuclear Medicine and PET [address] [phone] 03/01/2024 8:00 EDT Appointment [facility] Radiology Nuclear Medicine and PET [address] [phone] 03/01/2024 9:30 EDT Appointment [facility] Radiology Nuclear Medicine and PET [address] [phone] documented as of this encounter Visit Diagnoses Not on filedocumented in this encounter
--- OUTSIDE RECORDS SUMMARY | 2024-02-06 13:40 | XMS_ITS | Encounter Summary ---
Author Organization [facility] Address [address] [place] [address] Care Team Providers Care Etl Analyst Name Role Phone None, Provider Primary Care Provider Unavailabl e Reason for Referral * Consult (3 - 10 Business Days) - Closed Specialty Diagnoses / Procedures Referred By Contac t Referred To Contact Diagnoses in first trimester Andrés Mcfarlane MD [address] [facility], Level 1 [place] [address] [facility] Ep4 Ob/Mfm [address] [place] [address] Referral ID Status Reason Start Date Expiration Date V isits Requested Visits Authorized [id number] Closed Specialty Services Required 10/11/2019 1 1 Question Answer Reason for Request: Failed Reason for Visit * Reason Comments Vaginal Bleeding see tcall. Ambulator y into triage, 9.5wks , last night started with bright red bleeding I've changed the panty liner a few times since last night. Followed by [facility] gynaecological oncologist highrisk. Intermittent cramping. Hx 6 miscarriages. Encounter Details Date Type Department Care Team (Late st Contact Info) Description 10/11/2019 20:54 EDT - 10/12/2019 0:13 EDT Emergency [facility] Emergency Department - [address] [address] Kylah Whitaker PA-C 111 [facility], [facility] 1 [place] [address] Alessandro Delgadillo MD 111 [facility], [address] [address] in first trimester (Primary Dx) Discharge [...] you for coming to the ED at [facility] for your medical care. Whenever we [...] a failed . 2) Please follow-up with TAX ASSOCIATE ATTORNEY. They should call you within 48 hours [...] Self Nursing Home documented in this encounter Consult Notes * Elise Larson MD - 10/11/2019 3980 EDT Department of Gynecology History & Physical [...] while on meds);no current mood issues. 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 PMedHx: Past Medical History: [...] file Gets together: Not on file Attends moravian service: Not on file Active member of [...] Last menstrual period: Per discussion with the mock up maker, patient is unsure. Per the most recent [...] for nonviable early in the first trimester. [place] Journal of Medicine 369.15 (2013): 8799-6043. ?? Assessment: Pt is a 34 y.o. [...] [facility] a clinic procedure [facility]. We discussed that if she wants a D&C in the main OR, she will have to be conscious of her NPO status tomorrow for an add on procedure. Alternatively, we can schedule her procedure for Tue. She confirms understanding. Will plan to let RF TEST TECHNICIAN team and clinic staff know about our [...] with Dr. Lund. Elise Larson MD PGY-3, TAX ASSOCIATE ATTORNEY Pager [phone] 10/12/2019 1:22 Associated attestation - Mayra Lund MD - 10/12/2019 9080 EDT Attestation: I saw and examined the [...] Lund MD PhD MFM Fellow, PGY5 Pager #[phone] Mayra Lund MD 10/12/2019 7:55 documented in [...] conditions at the [facility] on 10/11/2019. This note was created and authored by ANDRÉS MCFARLANE MD working under the supervision of Alessandro Delgadillo MD. CNITHYA Luo is a 34 y.o. female with [...] or abdominal pain. Patient called the on-call TAX ASSOCIATE ATTORNEY and they instructed her to come here [...] to visualize the itself. Plan to follow TAX ASSOCIATE ATTORNEY recommendations with CBC, type and screen, beta quant, transvaginalultrasound. Will consult TAX ASSOCIATE ATTORNEY with the results and asked further direction. An EKG was obtained and independenly interpreted: NA Laboratory results independently reviewed, significant for: Quant beta 2954, leukocytosis of 17.66, antibody screen positive Imaging obtained was reviewed and independently interpreted: Transvaginal ultrasound demonstrated a failed intrauterine TAX ASSOCIATE ATTORNEY was consulted when I was informed of [...] female a failed based on ultrasound, history. TAX ASSOCIATE ATTORNEY was consulted who thought that she could be discharged home for definitive management in the clinic or ORtomorrow with D&C or medical expulsion therapy. Patient is very comfortable with this plan, herlabs are reassuring. She was discharged in stable condition with close OB follow-up; the RhoGam is l ikely still active from her last one as antibodies are noted ED Course: (6955) I evaluated the patient. Data Software Engineer was at bedside discussing the results of [...] [facility] Adult Primary Care [address] [address] Carrington Calderon MD [address] [phone] 02/27/2024 8:30 EDT Telemedicine [facility] Sleep Program - [address] [address] Dwight Colbert [address] [place] [phone] 02/29/2024 10:30 [facility] [address] [phone] 02/29/2024 14:30 EDT Appointment [facility] Radiology Nuclear Medicine and PET [address] [phone] 03/01/2024 8:00 EDT Appointment [facility] Radiology Nuclear Medicine and PET [address] [phone] 03/01/2024 9:30 EDT Appointment [facility] Radiology Nuclear Medicine and PET [address] [phone] Pending Results Name Type Priority Associated Diagnoses [...] for nonviable early in the first trimester. [place] Journal of Medicine 369.15 (2013): 2306-2083. I have personally reviewed the images and [...] Last menstrual period: Per discussion with the mock up maker, patient is unsure. Per the most recent [...] Last menstrual period: Per discussion with the mock up maker, patient isunsure. Per the most recent OB [...] for nonviablepregnancy early in the first trimester. [place] Journal of Qbebpvhc899.15 (2013): 5846-5505. I have personally reviewed the images and the above interpretation andagree with the findings. Andrés Mcfarlane MD IMG US OB ORDERAB LES * ANTIBODY IDENTIFICATION (10/11/2019 21:09 EDT) Antibody Identification Anti-D; patient recd RhIg 10/11/2019 23:41 EDT [facility] BLOOD BANK Blood VENOUS BLOOD / Unknown Venipuncture / Unknown 10/11/2019 21:09 EDT 10/11/2019 21:16 EDT Elise Charles MD BLOOD BANK TESTS Performing Organization Address City/[facility]/ZIP Co de Phone Number [facility] BLOOD BANK [address] [place] [address] * HN LAB DIFF PATH REVIEW - HEME (10/11/2019 21:09 EDT) Pathologist Review Comment 10/12/19 13:41 ?? Elise Hightower MD 10/12/2019 13:41 EDT [facility] LABORATORY SERVICES Blood VENOUS BLOOD / Unknown Venipuncture / Unknown 10/11/2019 21:09 EDT 10/11/2019 21:13 EDT Andrés Mcfarlane MD HEMATOLOGY & PF4 ORDERABLES Performing Organization Address City/[facility]/ZIP Co de Phone Number [facility] LABORATORY SERVICES [address] [place] [address] * TYPE AND SCREEN (10/11/2019 21:09 EDT) ABO B 10/11/2019 22:43 EDT [facility] BLOOD BANK Rh Factor Negative 10/11/2019 22:43 EDT [facility] BLOOD BANK Antibody Screen Positive 10/11/2019 22:43 EDT [facility] BLOOD BANK Specimen Expires: 10/14/2019 @ 23:59 10/11/2019 22:43 EDT [facility] BLOOD BANK Blood VENOUS BLOOD / Unknown Venipuncture / Unknown 10/11/2019 21:09 EDT 10/11/2019 21:16 EDT Elise Charles MD BLOOD BANK TESTS [facility] BLOOD BANK [address] [place] [address] * (ABNORMAL) DIFFERENTIAL, AUTOMATED MANUAL (10/11/2019 21:09 EDT) % Neutrophils 52.6 % 10/11/2019 23:25 [facility] LABORATORY SERVICES % Lymphocytes 25.0 % 10/11/2019 23:25 [facility]ORY SERVICES % Atypical Lymphocytes 6.9 % 10/11/2019 23:25 [facility] % Monocytes 8.6 % 10/11/2019 23:25 [facility] % Eosinophils 5.2 % 10/11/2019 23:25 [facility] % Basophils 1.7 % 10/11/2019 23:25 [facility] Absolute Neutrophils 9.29(H) 2.20 - 8.85 K/cmm 10/11/2019 23:25 [facility] Absolute Lymphocytes 4.42(H) 1.09 - 3.30 K/cmm 10/11/2019 23:25 [facility] Absolute Atypical Lymphocytes 1.22 K/cmm 10/11/2019 23:25 [facility] Absolute Monocytes 1.52(H) 0.10 - 0.80 K/cmm 10/11/2019 23:25 [facility] Absolute Eosinophils 0.92(H) 0.03 - 0.61 K/cmm 10/11/2019 23:25 [facility] ABS Basophils 0.30(H) 0.01 - 0.11 K/cmm 10/11/2019 23:25 [facility] Blood VENOUS BLOOD / Unknown Venipuncture / Unknown 10/11/2019 21:09 EDT 10/11/2019 21:13 EDT Andrés Mcfarlane MD HEMATOLOGY & PF4 ORDERABLES Performing Organization Address [facility] de Phone Number [facility] LABORATORY SERVICES [address] [place] [address] * (ABNORMAL) QUANT BETA HCG, (10/11/2019 21:09 EDT) Pathologist [facility] Beta HCG Quant, 2,954(H) <5 mIU/ml 10/11/2019 22:54 EDT [facility] [...] GAS ORDERABLES Performing Organization Address [facility] de Phone Number [facility] LABORATORY SERVICES [address] [place] [address] * (ABNORMAL) COMPLETE BLOOD COUNT AND DIFFERENTIAL (10/11/2019 21:09 EDT) Pathologist [facility] WBC 17.66(H) 4.00 - 12.40 K/cmm 10/11/2019 22:16 [facility] RBC 4.70 3.86 - 5.04 M/cmm 10/11/2019 22:16 [facility] Hemoglobin 14.4 11.6 - 15.2 gm/dL 10/11/2019 22:16 [facility] HCT 41.9 34.9 - 44.4 % 10/11/2019 22:16 [facility] MCV 89 81 - 98 fl 10/11/2019 22:16 [facility] MCH 30.6 26.7 - 33.3 pg 10/11/2019 22:16 [facility] MCHC 34.4 32.1 - 35.9 gm/dL 10/11/2019 22:16 [facility] RDW-CV 12.1 <14.7 % 10/11/2019 22:16 EDT [facility] LABORATORY SERVICES RDW-SD 39.5 <50.4 fl 10/11/2019 22:16 EDT [facility] LABORATORY SERVICES PLT 443(H) 141 - 377 K/cmm 10/11/2019 22:16 EDT [facility] LABORATORY SERVICES MPV 9.5 9.5 - 12.7 fl 10/11/2019 22:16 EDT [facility] LABORATORY SERVICES Type of Differential: Manual 10/11/2019 22:16 EDT [facility] LABORATORY SERVICES Blood VENOUS BLOOD / Unknown Venipuncture / Unknown 10/11/2019 21:09 EDT 10/11/2019 21:13 EDT Andrés Mcfarlane MD PACKAGES & DNA MS OBE ORDERABLES Performing Organization Address City/[facility]/ZIP Co de Phone Number [facility] LABORATORY SERVICES [address] [place] [address] * BLOOD BANK HOLD (10/11/2019 21:09 EDT) Hold BB Spec will exp at 23:59, 3 days from collect date 10/11/2019 21:31 EDT [facility] BLOOD BANK Blood VENOUS BLOOD / Unknown Venipuncture / Unknown 10/11/2019 21:09 EDT 10/11/2019 21:16 EDT Elise Charles MD BLOOD BANK TESTS Performing Organization Address City/[facility]/ZIP Co de Phone Number [facility] BLOOD BANK [address] [place] [address] * HOLD SST (10/11/2019 21:09 EDT) Hold Hold 10/11/2019 22:16 EDT [facility] LABORATORY SERVICES Blood VENOUS BLOOD / Unknown Venipuncture / Unknown 10/11/2019 21:09 EDT 10/11/2019 21:13 EDT Elise Charles MD LAB INFO SERVICE A ND SUPPORT & PHONE RESULT [facility] LABORATORY SERVICES [address] [place] [address] * HOLD LAVENDER TOP (10/11/2019 21:09 EDT) Hold Hold 10/11/2019 22:16 EDT [facility] LABORATORY SERVICES Blood VENOUS BLOOD / Unknown Venipuncture / Unknown 10/11/2019 21:09 EDT 10/11/2019 21:13 EDT Elise Charles MD LAB INFO SERVICE A ND SUPPORT & PHONE RESULT [facility] LABORATORY SERVICES [address] [place] [address] * HOLD GREEN TOP (10/11/2019 21:09 EDT) Hold Hold 10/11/2019 22:16 EDT [facility] LABORATORY SERVICES Blood VENOUS BLOOD / Unknown Venipuncture / Unknown 10/11/2019 21:09 EDT 10/11/2019 21:13 EDT Elise Charles MD LAB INFO SERVICE A ND SUPPORT & PHONE RESULT [facility] LABORATORY SERVICES [address] [place] [address] * HOLD BLUE TOP (10/11/2019 21:09 EDT) Hold Hold 10/11/2019 22:16 EDT [facility] LABORATORY SERVICES Blood VENOUS BLOOD / Unknown Venipuncture / Unknown 10/11/2019 21:09 EDT 10/11/2019 21:13 EDT Elise Charles MD LAB INFO SERVICE A ND SUPPORT & PHONE RESULT [facility] LABORATORY SERVICES [address] [place] [address] documented in this encounter Visit Diagnoses Diagnosis [...] RN) documented in this encounter Care Teams Etl Analyst Relationship Specialty Start Date End Date None, Provider PCP - General 06/18/19 11/25/19 documented as of this encounter
--- OUTSIDE RECORDS SUMMARY | 2024-02-06 13:40 | XMS_ITS | Encounter Summary ---
Author Organization [facility] Address [address] [place] [address] Care Team Providers Care Studio Technician Video Operator Name Role Phone None, Provider Primary Care Provider Unavailabl e Reason for Visit * Reason Onset Date Comments Other 10/16/2019 Follow up. Encounter Details Date Type Department Care Team (Late st Contact Info) Description 10/16/2019 Telephone [facility] [address] [address] Jordyn Wolfe, MARCELO Other (Follow up.) Social [...] Encounter - Jordyn Wolfe RN - 10/22/2019 9609 EDT Call to patient. This was a follow-up call after patient miscarriage. Patient did speak to oncology social worker Elo Diaz who reached out to me [...] she needs to speak to nurse or oncology social worker. Patient states currently feels well supported and expressed gratitude towards our staff for supporting her also. * Telephone Encounter - Jordyn Wolfe RN - 10/16/2019 1427 EDT Call to oncology social worker Lopez Diaz.Asked best number/time to call. documented in this encounter Plan of Treatment Upcoming Encounters Date Type Department Care Team (Late st Contact Info) Description 02/21/2024 9:45 EDT Office Visit [facility] Adult Primary Care - [address] [phone] Carrington Calderon MD 1 [facility] 1 [place] [phone] 02/27/2024 8:30 EDT Telemedicine [facility] Sleep Program - [address] [phone] Dwight Colbert [address] [place] [address] 02/29/2024 10:30 EDT [facility] Radiology Nuclear Medicine and PET - [address] [address] 02/29/2024 14:30 EDT [facility] and PET [address] [phone] 03/01/2024 8:00 EDT [facility] Nuclear [facility] and PET [address] [phone] 03/01/2024 9:30 EDT Appointment [facility] Radiology Nuclear Medicine and PET [address] [phone] documented as of this encounter Visit Diagnoses Not on filedocumented in this encounter Care Teams Studio Technician Video Operator Relationship Specialty Start Date End Date None, Provider PCP - General 06/18/19 11/25/19 documented as of this encounter
--- OUTSIDE RECORDS SUMMARY | 2024-02-06 13:40 | XMS_ITS | Encounter Summary ---
Author Organization [facility] Address [address] [place] [address] Care Team Providers Care Head Packager Name Role Phone None, Provider Primary Care Provider Unavailabl e Reason for Visit * Reason Onset Date Comments Pharmacy 10/29/2019 Encounter Details Date Type Department Care Team (Late st Contact Info) Description 10/29/2019 Telephone [facility] [address] [place] [address] Monique Gramajo, GUSTAOV [address] [place] [address] Pharmacy Social History Tobacco Use [...] [facility] [place] 1 [place] [address] Carrington Calderon MD 1 [facility] Level 1 [place] [phone] 02/27/2024 8:30 EDT Telemedicine [facility] Sleep Program - [address] [place] [address] [place] [address] Dwight Colbert [address] [place] [address] 02/29/2024 10:30 EDT Appointment [facility] Radiology Nuclear Medicine and PET - [address] [address] 02/29/2024 14:30 EDT Appointment [facility] Radiology Nuclear Medicine and PET - [address] 814561 03/01/2024 8:00 EDT Appointment [facility] Radiology Nuclear Medicine and PET - [address] [address] 03/01/2024 9:30 EDT Appointment [facility] Radiology Nuclear Medicine and PET - [address] [address] documented as of this encounter Visit Diagnoses Not on filedocumented in this encounter Care Teams Head Packager Relationship Specialty Start Date End Date None, Provider PCP - General 06/18/19 11/25/19 documented as of this encounter
--- OUTSIDE RECORDS SUMMARY | 2024-02-06 13:40 | XMS_ITS | Encounter Summary ---
Author Organization [facility] Address [address] [place] [address] Care Team Providers Care Arnp Name Role Phone Unavailable Primary Care Provider Unavailabl e Reason for Visit * Reason Comments Diabetes * Consult (Routine) - Specialty Report Received Specialty Diagnoses / Procedures Referred By Contlesli t Referred To Contact Endocrinology Diagnoses Type 2 diabetes mellitus with other specified complication, unspecified whether fdc insulin use ([facility]) Tonja Alejandro PA-C [address] [place] [address] [facility] Endocrinology [address] [place] [address] Referral ID Status Reason Start Date Expiration Date Visits Requested Visits Authorized [id number] Specialty Report Received Specialty Services Required 11/27/2019 1 1 Encounter Details Date Type Department Care Team (Latest Contact Info) Description 11/30/2019 9:30 EDT Telemedicine [facility] Endocrinology - [facility] [address] [place] [address] Sara Zafar NP [address] [facility] [address] [place] [address] Anxiety and depression (Primary Dx); Type 2 diabetes mellitus with hyperosmolarity without coma, with long-term current use of insulin ([facility]) Social History Tobacco Use Types Packs/Day Years [...] trimester miscarriages, most recently terminated a at [facility] The most recent 10/28/2019. Recurrent loss is attributed to to poorly controlled type 2 diabetes in conjunction with tobacco dependence. She saw BLOCKING MACHINE TENDER on 11/03/2018, and was advised to get diabetes in control, and to quit smoking both tobacco and pot. She is now scheduled for a tubal ligation December 14. 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 She did go to [facility] and had x-rays and was [...] siblings, knows about 2, no DM. 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 [...] [facility] Adult Primary Care - [address] [address] Carrington Calderon MD 1 [facility] 1 [place] [phone] 02/27/2024 8:30 EDT Telemedicine [facility] Sleep Program - [address] [phone] Dwight Colbert [address] [place] [phone] 02/29/2024 10:30 EDT [facility] and PET - [address] [phone] 02/29/2024 14:30 EDT Appointment [facility] Radiology Nuclear Medicine and PET - [address] [address] 03/01/2024 8:00 EDT Appointment [facility] Radiology Nuclear Medicine and PET [address] [address] 03/01/2024 9:30 EDT Appointment [facility] Radiology Nuclear Medicine and PET [address] [address] documented as of this encounter Visit Diagnoses Diagnosis Anxiety and depression- Primary Dysthymic disorder Type 2 diabetes mellitus with hyperosmolarity without coma, with long-term current use of insulin ([facility]) documented in this encounter Discontinued Medications Medication [...]
--- OUTSIDE RECORDS SUMMARY | 2024-02-06 13:40 | XMS_ITS | Encounter Summary ---
Author Organization [facility] Address [address] [place] [address] Care Team Providers Care Hotel Night Auditor Name Role Phone None, Provider Primary Care Provider Unavailabl e Reason for Visit * Reason Comments Social Work Encounter Details Date Type Department Care Team (Late st Contact Info) Description 10/16/2019 Community Health Team [facility] Women's Services - [address] [address] Eryn Diaz Social History Tobacco Use Types [...] lbs. Pt [facility] that she believes caused SI/SP. Pt rep she was on a bridge in [place] and about to jump to lots of [...] SW rec pt at least check out [employer]'s website - described this thx practice was [...] to facilitate record request. Jordyn will submit [facility] SW referral later this week; SW will zandra pt status as pending for now. Next SW appt 11/04 via ph. SW will email pt zoom meeting info ([email or web address]). [facility] Total Time: 1 hour total 35 min via ph with pt 10 min care coord 15 min charting Referral: Yobany José and PMHNP Denita Brantley Follow up: Date: Tuesday, November 05, 2019 Time: 10 AM With: Eryn Diaz Recordak Operator Location: ph Status: Pending documented in this encounter Plan of Treatment Upcoming Encounters Date Type Department Care Team (Late st Contact Info) Description 02/21/2024 9:45 EDT Office Visit [facility] Adult Primary Care - [address] [phone] Carrington Calderon MD [address] [place] [phone] 02/27/2024 8:30 EDT Telemedicine [facility] Sleep Program - [address] [phone] Dwight Colbert [address] [place], [place] [phone] 02/29/2024 10:30 ED[facility] and PET [address] [address] 02/29/2024 14:30 EDT Appointment [facility] Radiology Nuclear Medicine and PET [address] [address] 03/01/2024 8:00 EDT Appointment [facility] Radiology Nuclear Medicine and PET [address] [address] 03/01/2024 9:30 EDT Appointment [facility] Radiology Nuclear Medicine and PET [address] [address] documented as of this encounter Visit Diagnoses Not on filedocumented in this encounter Care Teams Hotel Night Auditor Relationship Specialty Start Date End Date None, Provider PCP - General 06/18/19 11/25/19 documented as of this encounter
--- OUTSIDE RECORDS SUMMARY | 2024-02-06 13:41 | XMS_ITS | Encounter Summary ---
Author Organization [facility] Address [address] [place] [address] Care Team Providers Care Ammonia Box Operator Name Role Phone Benita Shafer GUSTAVO Primary Care Provider [phone] Reason for Visit * Reason Onset Date Comments Appointment Related 12/11/2018 Encounter Details Date Type Department Care Team (Late st Contact Info) Description 12/11/2018 Telephone [facility] Obstetrics & Midwifery - [facility] [address] [place], [place] [id number] Nohemy Sales MD 111 [facility], Level 4 [place] [address] Appointment Related Social History Tobacco [facility] - [address] [phone] Carrington Calderon MD [address] [address] 02/27/2024 8:30 EDT Telemedicine [facility] Sleep Program - [address] 054301 Dwight Colbert [address] [place] [phone] 02/29/2024 10:30 EDT Appointment [facility] Radiology Nuclear Medicine and PET [address] [phone] 02/29/2024 14:30 EDT Appointment [facility] Radiology Nuclear Medicine and PET - [address] [id number] 03/01/2024 8:00 EDT Appointment [facility] Radiology Nuclear Medicine and PET [address] [id number] 03/01/2024 9:30 EDT Appointment [facility] Radiology Nuclear Medicine and PET [address] [phone] documented as of this encounter Visit Diagnoses Not on filedocumented in this encounter Care Teams Ammonia Box Operator Relationship Specialty Start Date End Date Benita Shafer NP PCP - General 08/22/18 06/17/19 documented as of this encounter
--- OUTSIDE RECORDS SUMMARY | 2024-02-06 13:41 | XMS_ITS | Encounter Summary ---
Author Organization [facility] Address [address] [place] [address] Care Team Providers Care Psychologist Social Name Role Phone None, Provider Primary Care Provider Unavailabl e Reason for Visit * Reason Onset Date Comments Results 08/31/2019 Encounter Details Date Type Department Care Team (Late st Contact Info) Description 08/31/2019 Telephone [facility] Women's Services - [address] [address] Susana Tomlinson, RN Results Social History Tobacco [...] Encounter - Susana Tomlinson RN - 08/31/2019 9787 EDT Spoke with Cristy: advised HCG from [...] call us with any concerns or questions. STEAM LOCOMOTIVE FIRER/FIREMAN nurse line [phone], or after hours MD line [phone]. documented in this encounter Plan of Treatment Upcoming Encounters Date Type Department Care Team (Late st Contact Info) Description 02/21/2024 9:45 EDT Office Visit [facility] Adult Primary Care - [address] [address] Carrington Calderon MD 1 [facility] 1 [place] [address] 02/27/2024 8:30 EDT Telemedicine [facility] Sleep Program - [address] [address] ColbertDwight garner [address] [place] [address] 02/29/2024 10:30 EDT [facility] Radiology Nuclear Medicine and PET - [address] [address] 02/29/2024 14:30 EDT [facility]ointment [facility] Radiology Nuclear Medicine and PET [address] 676131 03/01/2024 8:00 EDT Appointment [facility] Radiology Nuclear Medicine and PET - [address] [phone] 03/01/2024 9:30 EDT Appointment [facility] Radiology Nuclear Medicine and PET [address] 874201 documented as of this encounter Visit Diagnoses Not on filedocumented in this encounter Care Teams Psychologist Social Relationship Specialty Start Date End Date None, Provider PCP - General 06/18/19 11/25/19 documented as of this encounter
--- OUTSIDE RECORDS SUMMARY | 2024-02-06 13:41 | XMS_ITS | Encounter Summary ---
Author Organization [facility] Address [address] [place] [address] Care Team Providers Care Luggage Maker Name Role Phone Benita Shafer LAW ENFORCEMENT OFFICER Primary Care Provider [phone] Reason for Visit * Reason Onset Date Comments Results 12/25/2018 Encounter Details Date Type Department Care Team (Late st Contact Info) Description 12/25/2018 Telephone [facility] Women's Services - [address] [address] Susana Tomlinson, RN Results Social History Tobacco [...] RN - 12/25/2018 0955 EDT Spoke with [facility] lab, Cristy has not has HCG blood draw sine 12/13/18. Letter sent, removed from Beta Book. documented in this encounter Plan of Treatment Upcoming Encounters Date Type Department Care Team (Late st Contact Info) Description 02/21/2024 9:45 EDT Office Visit [facility] Adult Primary Care - [address] [phone] Carrington Calderon MD [address] [phone] 02/27/2024 8:30 EDT Telemedicine [facility] Sleep Program - [address] [phone] Dwight Colbert [address] [place] [phone] 02/29/2024 10:30 EDT Appointment [facility] Radiology Nuclear Medicine and PET [address] [phone] 02/29/2024 14:30 EDT Appointment [facility] Radiology Nuclear Medicine and PET [address] [id number] 03/01/2024 8:00 EDT Appointment [facility] Radiology Nuclear Medicine and PET [address] [phone] 03/01/2024 9:30 EDT Appointment [facility] Radiology Nuclear Medicine and PET [address] [phone] documented as of this encounter Visit Diagnoses Not on filedocumented in this encounter Care Teams Luggage Maker Relationship Specialty Start Date End Date Benita Shafer NP PCP - General 08/22/18 06/17/19 documented as of this encounter
--- OUTSIDE RECORDS SUMMARY | 2024-02-06 13:41 | XMS_ITS | Encounter Summary ---
Author Organization [facility] Address [address] [place] [address] Care Team Providers Care Construction Executive Name Role Phone None, Provider Primary Care [...] Office Visit [facility] Adult Primary Care - [address] [phone] Carrington Calderon MD [address] [address] 02/27/2024 8:30 EDT Telemedicine [facility] Sleep Program - [address] [address] Dwight Colbert [address] [place] [address] 830491 02/29/2024 10:30 EDT Appointment [facility] Radiology Nuclear Medicine and PET [address] [id number] 02/29/2024 14:30 EDT Appointment [facility] Radiology Nuclear Medicine and PET [address] [id number] 03/01/2024 8:00 EDT Appointment [facility] Radiology Nuclear Medicine and PET [address] [phone] 03/01/2024 9:30 EDT Appointment [facility] Radiology Nuclear Medicine and PET [address] [phone] documented as of this encounter Visit Diagnoses Not on filedocumented in this encounter Care Teams Construction Executive Relationship Specialty Start Date End Date None, Provider PCP - General 06/18/19 11/25/19 documented as of this encounter
--- OUTSIDE RECORDS SUMMARY | 2024-02-06 13:41 | XMS_ITS | Encounter Summary ---
Author Organization [facility] Address [address] [place] [address] Care Team Providers Care Career And Technology Education Teacher Name Role Phone Benita Shafer CLINIC PHYSICIAN Primary Care Provider [phone] Reason for Visit * Reason Comments Social Work Encounter Details Date Type Department Care Team (Late st Contact Info) Description 12/15/2018 Community Health Team [facility] Women's Services - [address] [address] Kylah Bose Social History Tobacco Use Types [...] check in with patient during her next Production Engineer Track appointment with Dr. Ojeda on 01/03. [facility] Total Time: 5 minutes phone, 5 minutes charting Referral: n/a Follow up: n/a Status: pending documented in this encounter Plan of Treatment Upcoming Encounters Date Type Department Care Team (Steph st Contact Info) Description 02/21/2024 9:45 EDT Office Visit [facility] Adult Primary Care - [address] 832971 Carrington Calderon MD [address] [address] 02/27/2024 8:30 EDT Telemedicine [facility] Sleep Program - [address] 546981 Dwight Colbert [address] [place] [address] [phone] 02/29/2024 10:30 EDT [facility]ointment [facility] Radiology Nuclear Medicine and PET - [address] [phone] 02/29/2024 14:30 EDT Appointment [facility] Radiology Nuclear Medicine and PET - [address] [id number] 03/01/2024 8:00 EDT Appointment [facility] Radiology Nuclear Medicine and PET - [address] [id number] 03/01/2024 9:30 EDT Appointment [facility] Radiology Nuclear Medicine and PET - [address] [address] documented as of this encounter Visit Diagnoses Not on filedocumented in this encounter Care Teams Career And Technology Education Teacher Relationship Specialty Start Date End Date Benita Shafer NP PCP - General 08/22/18 06/17/19 documented as of this encounter
--- OUTSIDE RECORDS SUMMARY | 2024-02-06 13:41 | XMS_ITS | Encounter Summary ---
Author Organization [facility] Address [address] [place] [address] Care Team Providers Care Rectifier Operator Name Role Phone Benita Shafer DIESEL TRACTOR OPERATOR Primary Care Provider [phone] Encounter Details Date Type Department Care Team (Late st Contact Info) Description 12/25/2018 Orders Only [facility] Women's Services - [address] 225301 Charu Flynn MD 111 [facility], Level 4 [place] [address] Social History Tobacco Use Types [...] [facility] Adult [facility] - [address] 985891 Carrington Calderon MD [address] [phone] 02/27/2024 8:30 EDT Telemedicine [facility] Sleep Program - [address] [phone] Dwight Colbert [address] [place] [address] [phone] 02/29/2024 10:30 EDT Appointment [facility] Radiology Nuclear Medicine and PET [address] [id number] 02/29/2024 14:30 EDT Appointment [facility] Radiology Nuclear Medicine and PET [address] [id number] 03/01/2024 8:00 EDT Appointment [facility] Radiology Nuclear Medicine and PET [address] [id number] 03/01/2024 9:30 EDT Appointment [facility] Radiology Nuclear Medicine and PET [address] [phone] documented as of this encounter Procedures Procedure Name Priority Date/Time Associated Diagnosis Comments QUANT BETA HCG, Routine 12/13/2018 6:27 EDT documented in this encounter Results * QUANT BETA HCG, (12/13/2018 6:27 EDT) HCG, External 13.63 2.39 - 15,000 mIU/mL [facility] Comment:Please see the scann ed report in EPIC for further interpretation. Blood specimen (specimen) 12/13/2018 6:27 EDT Charu Flynn MD CHEMISTRY & BLOO D GAS ORDERABLES [facility] documented in this encounter Visit Diagnoses Not on filedocumented in this encounter Care Teams Rectifier Operator Relationship Specialty Start Date End Date Benita Shafer NP PCP - General 08/22/18 06/17/19 documented as of this encounter
--- OUTSIDE RECORDS SUMMARY | 2024-02-06 13:41 | XMS_ITS | Encounter Summary ---
Author Organization [facility] Address [address] [place] [address] Care Team Providers Care Grinding Machine Tender Name Role Phone None, Provider Primary Care Provider Unavailabl e Reason for Visit * Reason Onset Date Comments Coordination Of Care 09/18/2019 Encounter Details Date Type Department Care Team (Late st Contact Info) Description 09/18/2019 Telephone [facility] Women's Services [facility] [address] [place] [address] Cristy Richmond, RN Coordination Of Care Social [...] - [facility] Adult Primary Care - [address] 086541 Carrington Calderon MD [address] [phone] 02/27/2024 8:30 EDT Telemedicine [facility] Sleep Program - [address] [phone] Dwight Colbert [address] [place] [address] [phone] 02/29/2024 10:30 EDT Appointment [facility] Radiology Nuclear Medicine and PET [address] [id number] 02/29/2024 14:30 EDT Appointment [facility] Radiology Nuclear Medicine and PET - [address] [id number] 03/01/2024 8:00 EDT Appointment [facility] Radiology Nuclear Medicine and PET [address] [phone] 03/01/2024 9:30 EDT Appointment [facility] Radiology Nuclear Medicine and PET [address] [phone] documented as of this encounter Visit Diagnoses Not on filedocumented in this encounter Care Teams Grinding Machine Tender Relationship Specialty Start Date End Date None, Provider PCP - General 06/18/19 11/25/19 documented as of this encounter
--- OUTSIDE RECORDS SUMMARY | 2024-02-06 13:41 | XMS_ITS | Encounter Summary ---
Author Organization [facility] Address [address] [place] [address] Care Team Providers Care Machine Operator General Name Role Phone Benita Shafer MARKET RESEARCH INTERVIEWER Primary Care Provider [phone] Reason for Visit * Reason Onset Date Comments Results 12/15/2018 Encounter Details Date Type Department Care Team (Late st Contact Info) Description 12/15/2018 Telephone [facility] Women's Services - [address] [address] Susana Tomlinson, RN Results Social History Tobacco [...] VM, left general message: nurse calling from [facility] Women???s clinic, re: blood work results, level has decreased, plan per MD team is to repeat blood work in one week from last (12/20). Also reminder that you have an appt scheduled for 02/24/19 @ 9am, also appt on 01/03 but will will check with provider to determine if appropriate. Please call the SHIP SUPERINTENDENT nurses at [phone]. When Cristy calls will give details: HCG [...] [facility] - [address] 862181 Carrington Calderon MD [address] [phone] 02/27/2024 8:30 EDT Telemedicine [facility] Sleep Program - [address] [phone] Dwight Colbert [address] [place] [address] [phone] 02/29/2024 10:30 EDT Appointment [facility] Radiology Nuclear Medicine and PET - [address] [phone] 02/29/2024 14:30 EDT Appointment [facility] Radiology Nuclear Medicine and PET [address] [address] 03/01/2024 8:00 EDT Appointment [facility] Radiology Nuclear Medicine and PET [address] [address] 03/01/2024 9:30 EDT Appointment [facility] Radiology Nuclear Medicine and PET [address] [address] documented as of this encounter Procedures Procedure Name Priority Date/Time Associated Diagnosis Comments QUANT BETA HCG, Routine 12/13/2018 6:27 EDT documented in this encounter Results * QUANT BETA HCG, (12/13/2018 6:27 EDT) HCG, External 13.63 2.39 - 15,000 mIU/mL [facility] Blood specimen (specimen) 12/13/2018 6:27 EDT Charu Flynn MD CHEMISTRY & BLOO D GAS ORDERABLES [facility] documented in this encounter Visit Diagnoses Not on filedocumented in this encounter Care Teams Machine Operator General Relationship Specialty Start Date End Date Benita Shafer NP PCP - General 08/22/18 06/17/19 documented as of this encounter
--- OUTSIDE RECORDS SUMMARY | 2024-02-06 13:41 | XMS_ITS | Encounter Summary ---
Author Organization [facility] Address [address] [place] [address] Care Team Providers Care Mechanical Door Repairer Name Role Phone Benita Shafer MERCHANT MILLER Primary Care Provider [phone] Reason for Visit * Reason Onset Date Comments Labs Only 11/17/2018 Encounter Details Date Type Department Care Team (Late st Contact Info) Description 11/17/2018 Telephone [facility] Women's Services - [address] [address] Jordyn Wolfe, RN Labs Only Social History [...] 18. Patient has not gone to either [facility] lab or [facility] lab. * Telephone Encounter - Jordyn Wolfe [...] PM. Patient plans to go to the [facility] lab tomorrow morning around 9 AM. She [...] [facility] - [address] [address] Carrington Calderon MD 1 [facility] Level 1 [place] [phone] 02/27/2024 8:30 EDT Telemedicine [facility] Sleep Program - [address] [place] [address] [place] [address] Sayra Dwight [address] [place] [address] 02/29/2024 10:30 EDT Appointment [facility] Radiology Nuclear Medicine and PET - [address] [address] 02/29/2024 14:30 EDT Appointment [facility] Radiology Nuclear Medicine and PET [address] [id number] 03/01/2024 8:00 EDT Appointment [facility] Radiology Nuclear Medicine and PET [address] 467461 03/01/2024 9:30 EDT Appointment [facility] Radiology Nuclear Medicine and PET - [address] [address] documented as of this encounter Visit Diagnoses Not on filedocumented in this encounter Care Teams Mechanical Door Repairer Relationship Specialty Start Date End Date Benita Shafer NP PCP - General 08/22/18 06/17/19 documented as of this encounter
--- OUTSIDE RECORDS SUMMARY | 2024-02-06 13:41 | XMS_ITS | Encounter Summary ---
Author Organization [facility] Address [address] [place] [address] Care Team Providers Care Training And Development Specialist Name Role Phone None, Provider Primary Care Provider Unavailabl e Reason for Referral * FRUIT WASHER (Routine) - Specialty Report Received Specialty Diagnoses / Procedures Referred By Contac t Referred To Contact Diagnoses of unknown anatomic location Procedures US OB FIRST TRIMESTER (LESS THAN 14 WEEKS) TRANSVAGINAL Charu Flynn MD [address] [place] [address] Referral ID Status Reason Start Date Expiration Date V isits Requested Visits Authorized [id number] Specialty Report Received 09/03/2019 1 1 Reason for Visit * FRUIT WASHER (Routine) - Specialty Report Received Specialty Diagnoses / Procedures Referred By Contac t Referred To Contact Diagnoses of unknown anatomic location Procedures US OB FIRST TRIMESTER (LESS THAN 14 WEEKS) TRANSVAGINAL Charu Flynn MD [address] [address] Referral ID Status Reason Start Date Expiration Date V isits Requested Visits Authorized [id number] Specialty Report Received 09/03/2019 1 1 Encounter Details Date Type Department Care Team (Latest Contact Info) Description 09/05/2019 10:26 EDT - 09/06/2019 23:59 EDT Hospital Encounter [facility] Women's Services [address] [address] of unknown anatomic location Discharge Disposition: Home [...] [facility] Adult Primary Care - [address] 746051 Carrington Calderon MD [address] [phone] 02/27/2024 8:30 EDT Telemedicine [facility] Sleep Program - [address] [phone] Dwight Colbert [address] [place] [address] [phone] 02/29/2024 10:[address] [facility] Radiology Nuclear Medicine and PET [address] [phone] 02/29/2024 14:[address] [facility] Radiology Nuclear Medicine and PET - [address] [phone] 03/01/2024 8:[address] [facility] Radiology Nuclear Medicine and PET [address] [phone] 03/01/2024 9:[address] [facility] Radiology Nuclear Medicine and PET [address] [id number] documented as of this encounter Procedures Procedure [...] Sufficient. Impression 1st Trimester OB scan ,transvaginal +[id number] Single intrauterine gestational sac and yolk sac. [...] Sufficient. Impression 1st Trimester OB scan ,transvaginal +[id number] Single intrauterine gestational sac and yolk sac. A pole cannot beclearly identified on today's examination. Follow-up follow up US in 2 weeks. Comment ========= Z34.8 encounter for supervision of other normal . Resultsdiscussed w/patient. DATE OF SERVICE: 09/05/2019 Charu Flynn MD [facility] OB ORDERA BLES documented in this encounter Visit Diagnoses Diagnosis of unknown anatomic location state, incidental documented in this encounter Care Teams Training And Development Specialist Relationship Specialty Start Date End Date None, Provider PCP - General 06/18/19 11/25/19 documented as of this encounter
--- OUTSIDE RECORDS SUMMARY | 2024-02-06 13:41 | XMS_ITS | Encounter Summary ---
Author Organization [facility] Address [address] [place] [address] Care Team Providers Care Sample Case Porter Name Role Phone None, Provider Primary Care Provider Unavailabl e Reason for Visit * Reason Onset Date Comments 08/30/2019 Encounter Details Date Type Department Care Team (Late st Contact Info) Description 08/30/[address] [facility] Obstetrics & Midwifery - [facility] [address] [place] [address] Kylah Jimenes RN Social History Tobacco Use [...] Kylah Jimenes RN - 08/30/2019 1551 EDT [facility] Initial Appt Screening Form Best Contact Number: [phone] [facility] Provider: HUGO Previous [facility] Patient: YES: No Referred by: self [...] is agreeable to this. Message routed to OSTEOPATHIC NEUROLOGIST team to get into Beta Book. documented in this encounter Plan of Treatment Upcoming Encounters Date Type Department Care Team (Late st Contact Info) Description 02/21/2024 9:45 EDT Office Visit [facility] Adult Primary Care - [address] [address] Carrington Calderon MD 1 [facility] Level 1 [place] [address] 02/27/2024 8:30 EDT Telemedicine [facility] Sleep Program - [address] [place] [address] Dwight [address] [place] [address] [phone] 02/29/2024 10:30 EDT Appointment [facility] Radiology Nuclear Medicine and PET - [address] [phone] 02/29/2024 14:30 EDT Appointment [facility] Radiology Nuclear Medicine and PET [address] [id number] 03/01/2024 8:00 EDT Appointment [facility] Radiology Nuclear Medicine and PET [address] [id number] 03/01/2024 9:30 EDT Appointment [facility] Radiology Nuclear Medicine and PET [address] [id number] documented as of this encounter Results * (ABNORMAL) QUANT BETA HCG, (09/02/2019 9:42 EDT) [facility] Beta HCG Quant, 707(H) <5 mIU/ml 09/02/2019 10:30 EDT [facility] Comment: NOTE: : Negative: [...] CHEMISTRY & BLOO D GAS ORDERABLES [facility] [address] [place] [address] documented in this encounter Visit Diagnoses Diagnosis affected by previous ectopic - Primary documented in this encounter Care Teams Sample Case Porter Relationship Specialty Start Date End Date None, Provider PCP - General 06/18/19 11/25/19 documented as of this encounter
--- OUTSIDE RECORDS SUMMARY | 2024-02-06 13:41 | XMS_ITS | Encounter Summary ---
Author Organization [facility] Address [address] [place] [address] Care Team Providers Care Senior Java Programmer Analyst Name Role Phone Benita Shafer BALANCER Primary Care Provider [phone] Encounter Details Date Type Department Care Team (Late st Contact Info) Description 11/21/2018 Orders Only [facility] Women's Services - [address] 578751 Charu Flynn MD 111 [facility], Level 4 [place] [address] Social History Tobacco Use Types [...] [facility] Adult Primary Care - [address] [phone] Carrington Calderon MD [address] [phone] 02/27/2024 8:30 EDT Telemedicine [facility] Sleep Program - [address] [phone] Dwight Colbert [address] [place] [address] [phone] 02/29/2024 10:30 EDT Appointment [facility] Radiology Nuclear Medicine and PET [address] [phone] 02/29/2024 14:30 EDT Appointment [facility] Radiology Nuclear Medicine and PET [address] [phone] 03/01/2024 8:00 EDT Appointment [facility] Radiology Nuclear Medicine and PET [address] [phone] 03/01/2024 9:30 EDT Appointment [facility] Radiology Nuclear Medicine and PET [address] [phone] documented as of this encounter Procedures Procedure Name Priority Date/Time Associated Diagnosis Comments QUANT BETA HCG, Routine 11/21/2018 11:23 EDT documented in this encounter Results * QUANT BETA HCG, (11/21/2018 11:23 EDT) HCG, External 299.98 2.39 - 15,000 mIU/mL [facility] Comment:Please see the scann ed report in EPIC for further interpretation. Blood specimen (specimen) 11/21/2018 11:23 EDT Charu Flynn MD CHEMISTRY & BLOO D GAS ORDERABLES [facility] documented in this encounter Visit Diagnoses Not on filedocumented in this encounter Care Teams Senior Java Programmer Analyst Relationship Specialty Start Date End Date Benita Shafer NP PCP - General 08/22/18 06/17/19 documented as of this encounter
--- OUTSIDE RECORDS SUMMARY | 2024-02-06 13:41 | XMS_ITS | Encounter Summary ---
Author Organization [facility] Address [address] [place] [address] Care Team Providers Care Hat Model Name Role Phone Benita Shafer GUSTAVO Primary Care Provider [phone] Reason for Visit * Reason Onset Date Comments Appointment Related 03/02/2019 Encounter Details Date Type Department Care Team (Late st Contact Info) Description 03/02/2019 Telephone [facility] Obstetrics & Midwifery - [facility] [address] [place], [place] [phone] Deborah Prakash MD 111 [facility], Level 4 [place] [address] Appointment Related Social History Tobacco [...] [facility] [place] Adult Primary Care - [address] 716451 Carrington Calderon MD [address] [phone] 02/27/2024 8:30 EDT Telemedicine [facility] Sleep Program - [address] [address] Dwight Colbert [address] [place] [address] [phone] 02/29/2024 10:30 EDT Appointment [facility] Radiology Nuclear Medicine and PET - [address] [phone] 02/29/2024 14:30 EDT Appointment [facility] Radiology Nuclear Medicine and PET [address] [id number] 03/01/2024 8:00 EDT Appointment [facility] Radiology Nuclear Medicine and PET - [address] [phone] 03/01/2024 9:30 EDT Appointment [facility] Radiology Nuclear Medicine and PET - [address] [phone] documented as of this encounter Visit Diagnoses Not on filedocumented in this encounter Care Teams Hat Model Relationship Specialty Start Date End Date Benita Shafer NP PCP - General 08/22/18 06/17/19 documented as of this encounter
--- OUTSIDE RECORDS SUMMARY | 2024-02-06 13:41 | XMS_ITS | Encounter Summary ---
Author Organization [facility] Address [address] [place] [address] Care Team Providers Care Azure Principal Solution Specialist Name Role Phone None, Provider Primary Care Provider Unavailabl e Reason for Referral * SUPERVISORY TRAINING SPECIALIST (Routine) - Specialty Report Received Specialty Diagnoses / Procedures Referred By Contac t Referred To Contact Diagnoses of unknown anatomic location Procedures US OB FIRST TRIMESTER (LESS THAN 14 WEEKS) TRANSVAGINAL Charu Flynn MD [address] [place] [address] Level 4 [place] [address] Referral ID Status Reason Start Date Expiration Date V isits Requested Visits Authorized [id number] Specialty Report Received 09/03/2019 1 1 Reason for Visit * Reason Onset Date Comments Results 09/03/2019 Encounter Details Date Type Department Care Team (Late st Contact Info) Description 09/03/2019 Telephone [facility] Women's Services [address] [address] Susana Tomlinson, MARCELO Results Social [...] Tomlinson RN - 09/03/2019 1218 EDT Cristy [facility]: asking if blood work results [...] using Lysol on everything & using hand helpdesk manager. Advsied should put on a mask when arrives, tell screeners about cough, & will be directed appropriate. We will call her if there are any other directions. documented in this encounter Plan of Treatment Upcoming Encounters Date Type Department Care Team (Late st Contact Info) Description 02/21/2024 9:45 EDT Office Visit [facility] Adult Primary Care - [address] 027871 Carrington Calderon MD 1 [facility] 1 [place] [phone] 02/27/2024 8:30 EDT Telemedicine [facility] Sleep Program - [address] [address] Sayra Dwight [address] [place] [address] [phone] 02/29/2024 10:30 EDT Appointment [facility] Radiology Nuclear Medicine and PET [address] [phone] 02/29/2024 14:30 EDT Appointment [facility] Radiology Nuclear Medicine and PET [address] [phone] 03/01/2024 8:00 EDT Appointment [facility] Radiology Nuclear Medicine and PET [address] [phone] 03/01/2024 9:30 EDT Appointment [facility] Radiology Nuclear Medicine and PET [address] [phone] documented as of this encounter Results * [...] Sufficient. Impression 1st Trimester OB scan ,transvaginal +[id number] Single intrauterine gestational sac and yolk sac. [...] Sufficient. Impression 1st Trimester OB scan ,transvaginal +50095 Single intrauterine gestational sac and yolk sac. [...] incidental documented in this encounter Care Teams Azure Principal Solution Specialist Relationship Specialty Start Date End Date None, Provider PCP - General 06/18/19 11/25/19 documented as of this encounter
--- OUTSIDE RECORDS SUMMARY | 2024-02-06 13:41 | XMS_ITS | Encounter Summary ---
Author Organization [facility] Address [address] [place] [address] Care Team Providers Care Hardware Sales Assistant Name Role Phone Benita Shafer PRINCIPAL ANDROID DEVELOPER Primary Care Provider [phone] Reason for Visit * Reason Comments Sore [...] 8:50 EDT - 11/21/2018 10:09 EDT Emergency [facility] Emergency Department - [address] [address] Josh Coelho, PA-C 111 [facility], Level 1 [place] [phone] Emergency, MD Ekaterina Pharyngitis, unspecified etiology (Primary [...] sent through Care Everywhere. * SORE THROAT (SOUTH KOREAN) * STREP THROAT (SOUTH KOREAN) documented in this encounter Medications at Time [...] not cover this medication. There is an bjjt-jag-sbsxgck cream or an mrlx-gjv-vmqgrdx patch with a lower concentration that is [...] [facility] - [address] [phone] Carrington Calderon MD [address] [phone] 02/27/2024 8:30 EDT Telemedicine [facility] Sleep Program - [address] [phone] Dwight Colbert [address] [place] [address] [phone] 02/29/2024 10:30 EDT Appointment [facility] Radiology Nuclear Medicine and [address] [phone] 02/29/2024 14:30 EDT Appointment [facility] Radiology Nuclear Medicine and [address] [phone] 03/01/2024 8:00 EDT Appointment [facility] Radiology Nuclear Medicine and PET [address] [phone] 03/01/2024 9:30 EDT Appointment [facility] Radiology Nuclear Medicine and [address] [phone] documented as of this encounter Procedures Procedure Name Priority Date/Time Associated Diagnosis Comments GROUP A STREP CULTURE Routine 11/21/2018 9:25 EDT documented in this encounter Results * PHARYNGITIS CULTURE (11/21/2018 9:25 EDT) Result Mod STREPTOCOCCUS, BETA HEMOLYTIC GROUP A (STREPTOCOCCUS PYOGENES) 11/22/2018 13:12 EDT [facility] Specimen of unknown material (specimen) ENTIRE THROAT / Unknown 11/21/2018 9:25 EDT 11/21/2018 10:17 EDT Comment:Specimen submitted o n a flocked swab. Benita Sol MD MICROBIOLOGY - GENER AL ORDERABLES [facility] [address] [place] [address] documented in this encounter Visit Diagnoses Diagnosis [...] MARCELO) documented in this encounter Care Teams Hardware Sales Assistant Relationship Specialty Start Date End Date Benita Shafer NP PCP - General 08/22/18 06/17/19 documented as of this encounter
--- OUTSIDE RECORDS SUMMARY | 2024-02-06 13:41 | XMS_ITS | Encounter Summary ---
Author Organization [facility] Address [address] [place] [address] Care Team Providers Care Postal Carrier Name Role Phone Benita Shafer SALES AUDIT CLERK Primary Care Provider [phone] Reason for Visit * Reason Onset Date Comments Results 11/19/2018 Encounter Details Date Type Department Care Team (Late st Contact Info) Description 11/19/2018 Telephone [facility] [address] [place] [address] Jackie Almeida MD Results Social History Tobacco [...] 11/19/2018 9:33 PGY-1 Obstetrics and Gynecology Pager #[phone] documented in this encounter Plan of Treatment Upcoming Encounters Date Type Department Care Team (Late st Contact Info) Description 02/21/2024 9:45 EDT Office Visit [facility] Adult Primary Care - [address] [phone] Carrington Calderon MD [address] [phone] 02/27/2024 8:30 EDT Telemedicine [facility] Sleep Program - [address] 104101 Dwight Colbert [address] [place] [address] [phone] 02/29/2024 10:30 EDT Appointment [facility] Radiology Nuclear Medicine and PET - [address] [phone] 02/29/2024 14:30 EDT Appointment [facility] Radiology Nuclear Medicine and PET - [address] 160791 03/01/2024 8:00 EDT Appointment [facility] Radiology Nuclear Medicine and PET - [address] [phone] 03/01/2024 9:30 EDT Appointment [facility] Radiology Nuclear Medicine and PET - [address] [phone] documented as of this encounter Visit Diagnoses Not on filedocumented in this encounter Care Teams Postal Carrier Relationship Specialty Start Date End Date Benita Shafer NP PCP - General 08/22/18 06/17/19 documented as of this encounter
--- OUTSIDE RECORDS SUMMARY | 2024-02-06 13:41 | XMS_ITS | Encounter Summary ---
Author Organization [facility] Address [address] [place] [address] Care Team Providers Care Utility Driver Name Role Phone Benita Shafer CLEAT FEEDER Primary Care Provider [phone] Reason for Visit * Reason Onset Date Comments Labs Only 12/12/2018 Encounter Details Date Type Department Care Team (Late st Contact Info) Description 12/12/2018 Telephone [facility] Women's Services - [address] [address] Susana Tomlinson, RN Labs Only Social History [...] RN - 12/12/2018 1002 EDT Spoke with [facility] lab: last HCG blood draw @ their [...] Visit [facility] Adult Primary Care - [address] 129001 Carrington Calderon MD [address] [phone] 02/27/2024 8:30 EDT Telemedicine [facility] Sleep Program - [address] [phone] Dwight Colbert [address] [place] [address] [phone] 02/29/2024 10:30 EDT Appointment [facility] Radiology Nuclear Medicine and PET - [address] [phone] 02/29/2024 14:30 EDT Appointment [facility] Radiology Nuclear Medicine and PET - [address] [phone] 03/01/2024 8:00 EDT Appointment [facility] Radiology Nuclear Medicine and PET - [address] 305168 [phone] 03/01/2024 9:30 EDT Appointment [facility] Radiology Nuclear Medicine and PET - [address] [address] documented as of this encounter Visit Diagnoses Not on filedocumented in this encounter Care Teams Utility Driver Relationship Specialty Start Date End Date Benita Shafer NP PCP - General 08/22/18 06/17/19 documented as of this encounter
--- OUTSIDE RECORDS SUMMARY | 2024-02-06 13:41 | XMS_ITS | Encounter Summary ---
Author Organization [facility] Address [address] [place] [address] Care Team Providers Care Computing Systems Mechanic Name Role Phone Benita Shafer MILLWRIGHT INSTRUCTOR Primary Care Provider [phone] Encounter Details Date Type Department Care Team (Late st Contact Info) Description 12/11/2018 Orders Only [facility] Women's Services - [address] 150611 Charu Flynn MD 111 [facility], Level 4 [place] [address] Social History Tobacco Use Types [...] [facility] Adult Primary Care - [address] [phone] Carrington Calderon MD [address] [phone] 02/27/2024 8:30 EDT Telemedicine [facility] Sleep Program - [address] 120691 Dwight Colbert [address] [place] [address] [phone] 02/29/2024 10:30 EDT Appointment [facility] Radiology Nuclear Medicine and PET - [address] [phone] 02/29/2024 14:30 EDT Appointment [facility] Radiology Nuclear Medicine and [address] [phone] 03/01/2024 8:00 EDT Appointment [facility] Radiology Nuclear Medicine and PET [address] [phone] 03/01/2024 9:30 EDT Appointment [facility] Radiology Nuclear Medicine and PET [address] [phone] documented as of this encounter Visit Diagnoses Not on filedocumented in this encounter Care Teams Computing Systems Mechanic Relationship Specialty Start Date End Date Benita Shafer NP PCP - General 08/22/18 06/17/19 documented as of this encounter
--- OUTSIDE RECORDS SUMMARY | 2024-02-06 13:41 | XMS_ITS | Encounter Summary ---
Author Organization [facility] Address [address] [place] [address] Care Team Providers Care Substance Abuse Specialist Name Role Phone None, Provider Primary Care Provider Unavailabl e Encounter Details Date Type Department Care Team (Late st Contact Info) Description 09/05/2019 Orders Only [facility] Women's Services - [address] [address] Jonas Ojeda MD [address] [place] [address] [address] Less than 8 weeks gestation [...] [facility] - [address] [address] Carrington Calderon MD [address] [phone] 02/27/2024 8:30 EDT Telemedicine [facility] Sleep Program - [address] [phone] Dwight Colbert [address] [place] [address] [phone] 02/29/2024 10:30 EDT Appointment [facility] Radiology Nuclear Medicine and PET [address] [phone] 02/29/2024 14:30 EDT Appointment [facility] Radiology Nuclear Medicine and PET [address] 048201 03/01/2024 8:00 EDT Appointment [facility] Radiology Nuclear Medicine and PET [address] [phone] 03/01/2024 9:30 EDT Appointment [facility] Radiology Nuclear Medicine and PET [address] [phone] documented as of this encounter Visit Diagnoses Diagnosis Less than 8 weeks gestation of - Primary state, incidental documented in this encounter Care Teams Substance Abuse Specialist Relationship Specialty Start Date End Date None, Provider PCP - General 06/18/19 11/25/19 documented as of this encounter
--- OUTSIDE RECORDS SUMMARY | 2024-02-06 13:41 | XMS_ITS | Encounter Summary ---
Author Organization [facility] Address [address] [place] [address] Care Team Providers Care Police Patrol Officer Name Role Phone None, Provider Primary [...] 8:19 EST - 06/18/2019 15:19 EST Emergency [facility] Emergency Department - [facility] [address] [place] [address] [phone] Omayra Schuler PA-C [address] [place] [address], Level 1 [place] [phone] Acute non-recurrent maxillary sinusitis (Primary Dx); Acute [...] be sent through Care Everywhere. * Sinusitis (Albanian) documented in this encounter Medications at [...] long-distance travel or immobilizations. 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 Review of [...] appears to be a good tracing. Attending basket bottom machine operator not immediately available for acute interpretation. Radiology [...] follow-up with primary care physician and discussed lhxt-ifm-ycjrwqp medications for pain control. Patient and family [...] [facility] Adult Primary Care - [address] [address]55[address] Carrington Calderon MD [address] [phone] 02/27/2024 8:30 EDT Telemedicine [facility] Sleep Program - [address] [address] Dwight Colbert [address] [place] [address] [phone] 02/29/2024 10:30 EDT [facility] Radiology Nuclear Medicine and PET - [address] [phone] 02/29/2024 14:30 EDT [facility] Radiology Nuclear Medicine and PET - [address] [phone] 03/01/2024 8:00 EDT Appointment [facility] Radiology Nuclear Medicine and PET - [address] [phone] 03/01/2024 9:30 EDT Appointment [facility] Radiology Nuclear Medicine [place] [address] documented as of this encounter Procedures Procedure [...] EST) 06/18/2019 16:2 1 EST Scan 2 Electronic Tester PROCEDURE/MINOR BRAULIO GICAL ORDERABLES * XR CHEST [...] 136 136 - 145 mEq/L 06/18/2019 9:25 [facility] Potassium 4.6 3.5 - 5.0 mEq/L 06/18/2019 9:25 [facility] Chloride 102 96 - 110 mEq/L 06/18/2019 9:25 [facility] CO2 Total 27 22 - 32 mEq/L 06/18/2019 9:25 [facility] Glucose 256(H) 70 - 100 mg/dL 06/18/2019 9:25 [facility] Calcium 9.2 8.5 - 10.5 mg/dL 06/18/2019 9:25 [facility] Calculated Calcium 9.4 8.5 - 10.5 mg/dL 06/18/2019 9:25 [facility] BUN 10 10 - 26 mg/dL 06/18/2019 9:25 [facility] Creatinine 0.43(L) 0.52 - 1.04 mg/dL 06/18/2019 9:25 [facility] eGFR 133 >60 mL/min/1.7 3m2 06/18/2019 9:25 [facility] Comment:eGFR calculated in g CKD-EPI equation for non- Americans. Multiply eGFR by 1.16 for patients. Blood VENOUS BLOOD / Unknown Venipuncture / Unknown 06/18/2019 9:01 EST 06/18/2019 9:[address] [facility] CHEMISTRY & BLO OD GAS ORDERABLES [facility] [address] [place] [address] * (ABNORMAL) COMPLETE BLOOD COUNT AND DIFFERENTIAL (06/18/2019 9:01 EST) WBC 10.84 4.00 - 12.40 K/cmm 06/18/2019 9:15 [facility] RBC 4.58 3.86 - 5.04 M/cmm 06/18/2019 9:15 [facility] Hemoglobin 14.1 11.6 - 15.2 gm/dL 06/18/2019 9:15 [facility] HCT 40.9 34.9 - 44.4 % 06/18/2019 9:15 [facility] MCV 89 81 - 98 fl 06/18/2019 9:15 [facility] MCH 30.8 26.7 - 33.3 pg 06/18/2019 9:15 [facility] MCHC 34.5 32.1 - 35.9 gm/dL 06/18/2019 9:15 [facility] RDW-CV 12.2 <14.7 % 06/18/2019 9:15 [facility] RDW-SD 39.5 <50.4 fl 06/18/2019 9:15 [facility] PLT 349 141 - 377 K/cmm 06/18/2019 9:15 [facility] MPV 9.6 9.5 - 12.7 fl 06/18/2019 9:15 [facility] % Neutrophils 51.3 % 06/18/2019 9:15 [facility] % Lymphocytes 33.8 % 06/18/2019 9:15 [facility] % Monocytes 9.9 % 06/18/2019 9:15 [facility] % Eosinophils 4.2 % 06/18/2019 9:15 [facility] % Basophils 0.5 % 06/18/2019 9:15 [facility] % Immature Grans 0.3 % 06/18/19 20 9:15 [facility] Absolute Neutrophils 5.57 2.20 - 8.85 K/cmm 06/18/2019 9:15 [facility] Absolute Lymphocytes 3.66(H) 1.09 - 3.30 K/cmm 06/18/2019 9:15 [facility] Absolute Monocytes 1.07(H) 0.10 - 0.80 K/cmm 06/18/2019 9:15 [facility] Absolute Eosinophils 0.46 0.03 - 0.61 K/cmm 06/18/2019 9:15 [facility] ABS Basophils 0.05 0.01 - 0.11 K/cmm 06/18/2019 9:15 [facility] Absolute Immature Grans 0.03 0.00 - 0.06 K/cmm 06/18/2019 9:15 [facility] Type of Differential: Auto 06/18/2019 9:15 [facility] Blood VENOUS BLOOD / Unknown Venipuncture / Unknown 06/18/2019 9:01 EST 06/18/2019 9:09 EST Omayra Schuler PA-C PACKAGES & DNA PROBE ORDERABLES Performing Organization Address [facility]/State/[facility] Co de Phone Number [facility] [address] [place] [address] * EKG 12-LEAD (06/18/2019 8:28 EST) 06/18/2019 8:28 EST Narrative [facility] EKG - 06/18/2019 14:05 EST ?[facility] Emergency ? Test Date: ?2019-06-18 Pat Name: ? CRISTY LUO ?Department: ?? ED ? Room: ? GT33 Gender: ? Female ? Supervisor Reactor Fueling: ?? [id number] : ?1985 ? Requested By: [facility] Order Number: [id number] ? Reading MD: ?? FRAN LUCIANO SA MD ? Measurements Intervals ?[place] ? Rate: ? 94 ? P: ?51 RI: ? 138 ?QRS: ?8 QRSD: ? 88 [...] Fran Dowling Sa, MD - 06/18/2019 [facility] Emergency Test Date: 2019-06-18 Pat Name: CRISTY LUO Department: ED Room: 33 Gender: Female Supervisor Reactor Fueling: [id number] : 1985 Requested By: [facility] Order Number: [id number] Reading MD: FRAN GRAYSON Measurements Intervals [place] Rate: 94 P: 51 RI: 138 QRS: 8 QRSD: 88 T: 1 [...] MD. Omayra Chavira-Shiva CARDIAC ECG ORD ERABLES [facility] EKG documented in this encounter [...] not cover this medication. There is an ffpz-rix-dwdjcsy cream or an mizm-iib-tjiyjox patch with a lower concentration that is [...] dose, On 06/18/19 at 0900, STAT 0906 ([facility] ider: Judi Gomes RN) documented in this encounter Care Teams Police Patrol Officer Relationship Specialty Start Date End Date None, Provider PCP - General 06/18/19 11/25/19 documented as of this encounter
--- OUTSIDE RECORDS SUMMARY | 2024-02-06 13:41 | XMS_ITS | Encounter Summary ---
Author Organization [facility] Address [address] [place] [address] Care Team Providers Care Barrel Driller Name Role Phone None, Provider Primary Care Provider Unavailabl e Reason for Visit * Reason Onset Date Comments Advice Only 10/02/2019 Encounter Details Date Type Department Care Team (Late st Contact Info) Description 10/02/2019 Telephone [facility] Women's Services [address] [address]101 Deepali Le MD 111 [facility], Level 4 [place] [address] Advice Only Social History Tobacco [...] Also- is she interested in CF/SMA testing? [facility] phone number left and requested patient call back. * Telephone Encounter - Cynthia Costello - 10/02/2019 0881 EDT I called pt this morning to inform her of 3 scheduled appts (1 nutrition, 1 ultrasound and 1 routine ). She said yes to all three but asked if she would be getting bloodwork done at the visit(s) at the end on October, around her 12wk zandra. She would like to discuss this with a nurse. She can be reached at: [phone] documented in this encounter Plan of Treatment Upcoming Encounters Date Type Department Care Team (Late st Contact Info) Description 02/21/2024 9:45 EDT Office Visit [facility] Adult Primary Care - [address] [phone] Carrington Calderon MD 1 [facility] Level 1 [place] [phone] 02/27/2024 8:30 EDT Telemedicine [facility] Sleep Program - [address] [place] [address] Dwight Colbert [address] [place] [address] 02/29/2024 10:30 EDT [facility]ointment [facility] Radiology Nuclear Medicine and PET - [address] [address] 02/29/2024 14:30 EDT Appointment [facility] Radiology Nuclear Medicine and PET [address] [id number] 03/01/2024 8:00 EDT Appointment [facility] Radiology Nuclear Medicine and PET [address] [phone] 03/01/2024 9:30 EDT Appointment [facility] Radiology Nuclear Medicine and PET - [address] [phone] documented as of this encounter Visit Diagnoses Not on filedocumented in this encounter Care Teams Barrel Driller Relationship Specialty Start Date End Date None, Provider PCP - General 06/18/19 11/25/19 documented as of this encounter
--- OUTSIDE RECORDS SUMMARY | 2024-02-06 13:41 | XMS_ITS | Encounter Summary ---
Author Organization [facility] Address [address] [place] [address] Care Team Providers Care Dance Critic Name Role Phone Benita Shafer GUSTAVO Primary Care Provider Reason for Referral * Consult (3 - 10 Business Days) - Closed Specialty Diagnoses / Procedures [facility] Referred To Contact [facility] Team / Obstetrics & Gynecology Diagnoses Ectopic , unspecified location, unspecified whether intrauterine present History of recurrent miscarriages Charu Flynn MD 111 [facility] 4 [place] [address] [facility] [address] [place] [address] Referral ID Status Reason Start Date Expiration Date V isits Requested Visits Authorized [id number] Closed Specialty Services Required 11/10/2018 1 1 [...] please call the Community Health Team at [phone]. Reason for Visit * Reason Onset Date Comments Labs Only 11/10/2018 Encounter Details Date Type Department Care Team (Late st Contact Info) Description 11/10/2018 Telephone [facility] Women's Services [address] [address] Susana Busby, RN Labs Only Social History [...] 0850: Spoke with Cristy, she went to [facility] last night but it was too late to get blood drawn, currently at [facility] lab. When asked how she is doing [...] are available. She prefers to go to [facility] for blood work[facility] but may go to [facility] as is closer. I told her if [facility] registration says they do not have an order tell them to call the lab, as they can see [facility] Prism order. When asked if she has [...] [facility] Adult Primary Care - [address] 418091 Carrington Calderon MD [address] [phone] 02/27/2024 8:30 EDT Telemedicine [facility] Sleep Program - [address] 304111 Dwight Colbert [address] [place] [phone] 02/29/2024 10:30 EDT Appointment [facility] Radiology Nuclear Medicine and PET - [address] 648331 02/29/2024 14:30 EDT Appointment [facility] Radiology Nuclear Medicine and PET - [address] 793181 03/01/2024 8:00 EDT Appointment [facility] Radiology Nuclear Medicine and PET [address] 450735 [phone] 03/01/2024 9:30 EDT Appointment [facility] Radiology Nuclear Medicine and PET - [address] [address] Scheduled Referrals Name Type Priority Associated Diagnoses Orde r Schedule AMB CONS/FOLLOW UP [facility] TEAM Outpatient Referral Routine Ectopic , unspecified location, unspecified whether intrauterine present History of recurrent miscarriages Ordered: 11/10/2018 documented as of this encounter Visit Diagnoses Diagnosis Ectopic , unspecified location, unspecified whether intrauterine present- Primary History of recurrent miscarriages documented in this encounter Care Teams Dance Critic Relationship Specialty Start Date End Date Benita Shafer NP PCP - General 08/22/18 06/17/19 documented as of this encounter
--- OUTSIDE RECORDS SUMMARY | 2024-02-06 13:41 | XMS_ITS | Encounter Summary ---
Author Organization [facility] Address [address] [place] [address] Care Team Providers Care Clay Hoister Name Role Phone None, Provider Primary Care Provider Unavailabl e Reason for Visit * CENTERLESS GRINDER OPERATOR (Routine) - Order Cancelled Specialty Diagnoses / Procedures Referred By Contac t Referred To Contact Diagnoses Less than 8 weeks gestation of Procedures US OB FIRST TRIMESTER (LESS THAN 14 WEEKS) TRANSVAGINAL Jonas Ojeda MD [address] [place] [address] [address] Referral ID Status Reason Start Date Expiration Date V isits Requested Visits Authorized [id number] Order Cancelled 09/05/2019 1 1 Encounter Details Date Type Department Care Team (Latest Contact Info) Description 09/17/2019 9:09 EDT - 09/18/2019 23:59 EDT Hospital Encounter [facility] Women's Services - [address] [phone] Less than 8 weeks gestation of Discharge [...] [facility] Adult Primary Care - [address] 023931 Carrington Calderon MD [address] [phone] 02/27/2024 8:30 EDT Telemedicine [facility] Sleep Program - [address] [phone] Sayra Dwight [address] [place] [address] [phone] 02/29/2024 10:30 EDT Appointment [facility] Radiology Nuclear Medicine and PET [address] [id number] 02/29/2024 14:30 EDT Appointment [facility] Radiology Nuclear Medicine and PET [address] [id number] 03/01/2024 8:00 EDT Appointment [facility] Radiology Nuclear Medicine and PET [address] [phone] 03/01/2024 9:30 EDT Appointment [facility] Radiology Nuclear Medicine and PET [address] 185651 documented as of this encounter Procedures Procedure [...] corpus luteum: ??collapsed Impression OB Transvaginal - [address] [place] viable intrauterine with dating to be [...] corpus luteum: ??collapsed Impression OB Transvaginal - 32303 [place] viable intrauterine with dating to be [...] corpus luteum: collapsed Impression OB Transvaginal - 64105 [place] viable intrauterine with dating to be based onultrasound, as above for dating. Follow-up Establish OB care. Comment ========= Results discussed with patient. DATE OF SERVICE: 09/17/2019 Jonas Ojeda MD [facility] OB ORDERABLES documented in this encounter Visit Diagnoses Diagnosis Less than 8 weeks gestation of state, incidental documented in this encounter Care Teams Clay Hoister Relationship Specialty Start Date End Date None, Provider PCP - General 06/18/19 11/25/19 documented as of this encounter
--- OUTSIDE RECORDS SUMMARY | 2024-02-06 13:41 | XMS_ITS | Encounter Summary ---
Author Organization [facility] Address [address] [place] [address] Care Team Providers Care Gas Shovel Operator Name Role Phone Benita Shafer BEAM DYER Primary Care Provider [phone] Reason for Visit * Reason Onset Date Comments Other 11/21/2018 Encounter Details Date Type Department Care Team (Late st Contact Info) Description 11/21/2018 Telephone [facility] Women's Services - [address] [address] Jordyn Wolfe, MARCELO Other Social History Tobacco [...] to have her beta-hCG checked today at [facility]. I will ensure that the order is in place. documented in this encounter Plan of Treatment Upcoming Encounters Date Type Department Care Team (Late st Contact Info) Description 02/21/2024 9:45 EDT Office Visit [facility] Adult Primary Care - [address] [phone] Carrington Calderon MD [address] [phone] 02/27/2024 8:30 EDT Telemedicine [facility] Sleep Program - [address] [phone] Dwight Colbert [address] [place] [address] 02/29/2024 10:30 EDT Appointment [facility] Radiology Nuclear Medicine and PET - [address] 213761 02/29/2024 14:30 EDT Appointment [facility] Radiology Nuclear Medicine and PET - [address] [phone] 03/01/2024 8:00 EDT Appointment [facility] Radiology Nuclear Medicine and PET - [address] [id number] 03/01/2024 9:30 EDT Appointment [facility] Radiology Nuclear Medicine and PET - [address] [phone] documented as of this encounter Visit Diagnoses Not on filedocumented in this encounter Care Teams Gas Shovel Operator Relationship Specialty Start Date End Date Benita Shafer NP PCP - General 08/22/18 06/17/19 documented as of this encounter
--- OUTSIDE RECORDS SUMMARY | 2024-02-06 13:41 | XMS_ITS | Encounter Summary ---
Author Organization [facility] Address [address] [place] [address] Care Team Providers Care Traffic Lieutenant Name Role Phone None, Provider Primary Care Provider Unavailabl e Reason for Visit * Reason Onset Date Comments Vaginal Bleeding 10/02/2019 Encounter Details Date Type Department Care Team (Late st Contact Info) Description 10/02/2019 Telephone [facility] Obstetrics & Midwifery - [facility] [address] [place] [address] Jenny Heart, RN Vaginal Bleeding Social History [...] [facility] - [address] [address] Carrington Calderon MD 1 [facility] 1 [place] [address] 02/27/2024 8:30 EDT Telemedicine [facility] Sleep Program - [address] [address] ColbertDwight garner [address] [place] [phone] 02/29/2024 10:30 EDT Appointment [facility] Radiology Nuclear Medicine and PET - [address] [id number] 02/29/2024 14:30 EDT Appointment [facility] Radiology Nuclear Medicine and PET - [address] [phone] 03/01/2024 8:00 EDT Appointment [facility] Radiology Nuclear Medicine and PET [address] [phone] 03/01/2024 9:30 EDT Appointment [facility] Radiology Nuclear Medicine and PET [address] [phone] documented as of this encounter Visit Diagnoses Not on filedocumented in this encounter Care Teams Traffic Lieutenant Relationship Specialty Start Date End Date None, Provider PCP - General 06/18/19 11/25/19 documented as of this encounter
--- OUTSIDE RECORDS SUMMARY | 2024-02-06 13:41 | XMS_ITS | Encounter Summary ---
Author Organization [facility] Address [address] [place] [address] Care Team Providers Care Fire Prevention Forester Name Role Phone None, Provider Primary Care Provider Unavailabl e Encounter Details Date Type Department Care Team (Late st Contact Info) Description 09/02/2019 9:45 EDT Phlebotomy Only [facility] ED Center 2 Phlebotomy [address] [place] [address] Invoice Checker, Acc Phlebotomy affected by previous ectopic (Primary [...] [facility] Adult Primary Care - [address] 752741 Carrington Calderon MD [address] [phone] 02/27/2024 8:30 EDT Telemedicine [facility] Sleep Program - [address] [phone] Dwight Colbert [address] [place] [phone] 02/29/2024 10:30 EDT Appointment [facility] Radiology Nuclear Medicine and PET [address] [phone] 02/29/2024 14:30 EDT Appointment [facility] Radiology Nuclear Medicine and PET [address] [phone] 03/01/2024 8:00 EDT Appointment [facility] Radiology Nuclear Medicine and PET [address] [phone] 03/01/2024 9:30 EDT Appointment [facility] Radiology Nuclear Medicine and PET [address] [phone] documented as of this encounter Procedures Procedure Name Priority Date/Time Associated Diagnosis Comments QUANT BETA HCG, Routine 09/02/2019 9:42 EDT affected by previous ectopic documented in this encounter Results * (ABNORMAL) QUANT BETA HCG, (09/02/2019 9:42 EDT) Beta HCG Quant, 707(H) <5 mIU/ml 09/02/2019 10:30 EDT [facility] [...] MD CHEMISTRY & BLOO D GAS ORDERABLES [facility] [address] [place] [address] documented in this encounter Visit Diagnoses Diagnosis affected by previous ectopic - Primary documented in this encounter Care Teams Fire Prevention Forester Relationship Specialty Start Date End Date None, Provider PCP - General 06/18/19 11/25/19 documented as of this encounter
--- OUTSIDE RECORDS SUMMARY | 2024-02-06 13:41 | XMS_ITS | Encounter Summary ---
Author Organization [facility] Address [address] [place] [address] Care Team Providers Care Production Line Operator Name Role Phone Benita Shafer SHEET CATCHER Primary Care Provider [phone] Reason for Visit * Reason Onset Date Comments Results 12/04/2018 Encounter Details Date Type Department Care Team (Late st Contact Info) Description 12/04/2018 Telephone [facility] Women's Services - [address] [address] Lisseth Valdez, MARCELO Results Social History Tobacco [...] w/ dr beckwith. Please call us at [phone]. LVM for Cristy stating this is the nurse again, I forgot to tell you that based on your new result we would like for you to repeat your blood work on 12/10. documented in this encounter Plan of Treatment Upcoming Encounters Date Type Department Care Team (Late st Contact Info) Description 02/21/2024 9:45 EDT Office Visit [facility] Adult Primary Care - [address] [phone] Carrington Calderon MD [address] [phone] 02/27/2024 8:30 EDT Telemedicine [facility] Sleep Program - [address] 859851 Dwight Colbert [address] [place] [phone] 02/29/2024 10:30 EDT Appointment [facility] Radiology Nuclear Medicine and PET - [address] 138381 02/29/2024 14:30 EDT Appointment [facility] Radiology Nuclear Medicine and PET - [address] [phone] 03/01/2024 8:00 EDT Appointment [facility] Radiology Nuclear Medicine and PET [address] [address] 03/01/2024 9:30 EDT Appointment [facility] Radiology Nuclear Medicine and PET [address] 244651 documented as of this encounter Visit Diagnoses Not on filedocumented in this encounter Care Teams Production Line Operator Relationship Specialty Start Date End Date Benita Shafer NP PCP - General 08/22/18 06/17/19 documented as of this encounter
--- OUTSIDE RECORDS SUMMARY | 2024-02-06 13:41 | XMS_ITS | Encounter Summary ---
Author Organization [facility] Address [address] [place] [address] Care Team Providers Care Potable Water Treatment Operator Name Role Phone Benita Shafer PRODUCTION SKI REPAIRER Primary Care Provider [phone] Reason for Visit * Reason Onset Date Comments Results 12/13/2018 Encounter Details Date Type Department Care Team (Late st Contact Info) Description 12/13/2018 Telephone [facility] Women's Services - [address] [address] Susana Tomlinson, RN Results Social History Tobacco [...] RN - 12/13/2018 1013 EDT Spoke with [facility] lab: Cristy got her blood drawn thsi am, however the machine that is used to process BHCG is not working, they anticipate that it will be fixed tomorrow. documented in this encounter Plan of Treatment Upcoming Encounters Date Type Department Care Team (Late st Contact Info) Description 02/21/2024 9:45 EDT Office Visit [facility] Adult Primary Care - [address] [phone] Carrington Calderon MD [address] [phone] 02/27/2024 8:30 EDT Telemedicine [facility] Sleep Program - [address] 707011 Dwight Colbert [address] [place] [address] [phone] 02/29/2024 10:30 EDT Appointment [facility] Radiology Nuclear Medicine and PET [address] [phone] 02/29/2024 14:30 EDT Appointment [facility] Radiology Nuclear Medicine and PET [address] [phone] 03/01/2024 8:00 EDT Appointment [facility] Radiology Nuclear Medicine and PET [address] [phone] 03/01/2024 9:30 EDT Appointment [facility] Radiology Nuclear Medicine and PET [address] [phone] documented as of this encounter Visit Diagnoses Not on filedocumented in this encounter Care Teams Potable Water Treatment Operator Relationship Specialty Start Date End Date Benita Shafer NP PCP - General 08/22/18 06/17/19 documented as of this encounter
--- OUTSIDE RECORDS SUMMARY | 2024-02-06 13:41 | XMS_ITS | Encounter Summary ---
Author Organization [facility] Address [address] [place] [address] Care Team Providers Care Manager Room Name Role Phone Benita Shafer POLICE CHIEF Primary Care Provider [phone] Encounter Details Date Type Department Care Team [...] [facility] 1 [place] [address] Carrington Calderon MD 1 [facility] 1 [place] [address] 02/27/2024 8:30 EDT Telemedicine [facility] Sleep Program - [address] [address] Dwight Colbert [address] [place] [address] 02/29/2024 10:30 EDT Appointment [facility]ical [place] Radiology Nuclear Medicine and PET [address] 448341 02/29/2024 14:30 EDT Appointment [facility] Radiology Nuclear Medicine and PET [address] [id number] 03/01/2024 8:00 EDT Appointment [facility] Radiology Nuclear Medicine and PET [address] [id number] 03/01/2024 9:30 EDT Appointment [facility] Radiology Nuclear Medicine and PET [address] [phone] documented as of this encounter Visit Diagnoses Not on filedocumented in this encounter Care Teams Manager Room Relationship Specialty Start Date End Date Benita Shafer NP PCP - General 08/22/18 06/17/19 documented as of this encounter
--- OUTSIDE RECORDS SUMMARY | 2024-02-06 13:41 | XMS_ITS | Encounter Summary ---
Author Organization [facility] Address [address] [place] [address] Care Team Providers Care Licensed Marine Engineer Name Role Phone Benita Shafer LUMBER CARRIER Primary Care Provider [phone] Reason for Visit * Reason Onset Date Comments Results 11/21/2018 Encounter Details Date Type Department Care Team (Late st Contact Info) Description 11/21/2018 Telephone [facility] Women's Services - [address] [address] Jordyn Wolfe, MARCELO Results Social History Tobacco [...] Briscoe RN - 12/04/2018 1114 EDT Called [facility] to see if there were any recent betas, they state pt had been seen in there ED last night for unrelated problem. Asked them if they could run a Beta HCG off of what they collected lastnight 12/03. Called [facility] to see if they were able to run the HCG and asked them to fax results to [phone]. They state they will call and fax results. * Telephone Encounter - Lisseth Briscoe RN - 12/01/2018 1151 EDT Call to [facility] who states pt has not been [...] you of your upcoming appt 12/08 @ 1101 for a consult. If you are not able to get yourlab work done, or if you cannot keep that 12/08 appt please call [phone] to let us know. Attempted to reach pt 2 more times with no answer, no further msg left. * Telephone Encounter - Jordyn Wolfe RN - 11/30/2018 1031 EDT Call to lab. Patient has not gone in for [...] RN - 11/29/2018 0917 EDT Call to lab. Patient has not gone in for blood work yet. Will call patient. * Telephone Encounter - Jordyn Wolfe RN - 11/28/2018 1517 EDT Call to patient. Left message that the plan is for her to go to the lab for blood work( beta-hCG) retesting which she would be due today. Order is good at in [facility]. * Telephone Encounter - Jordyn Wolfe RN - 11/28/2018 1121 EDT Call to lab. Patient has not gone in for [...] off that day. Patient will go to . Patient with no questions at this time. documented in this encounter Plan of Treatment Upcoming Encounters Date Type Department Care Team (Late st Contact Info) Description 02/21/2024 9:45 EDT Office Visit [facility] Adult Primary Care - [address] [address] Carrington Calderon MD [address] [phone] 02/27/2024 8:30 EDT Telemedicine [facility] Sleep Program - [address] [address] Dwight Colbert [address] [place] [address] 02/29/2024 10:30 EDT Appointment [facility] Radiology Nuclear Medicine and PET [address] [id number] 02/29/2024 14:30 EDT Appointment [facility] Radiology Nuclear Medicine and PET [address] [id number] 03/01/2024 8:00 EDT Appointment [facility] Radiology Nuclear Medicine and PET [address] [phone] 03/01/2024 9:30 EDT Appointment [facility] Radiology Nuclear Medicine and PET [address] 208371 documented as of this encounter Visit Diagnoses Not on filedocumented in this encounter Care Teams Licensed Marine Engineer Relationship Specialty Start Date End Date Benita Shafer NP PCP - General 08/22/18 06/17/19 documented as of this encounter
--- OUTSIDE RECORDS SUMMARY | 2024-02-06 13:41 | XMS_ITS | Encounter Summary ---
Author Organization [facility] Address [address] [place] [address] Care Team Providers Care Regional Refrigerated Cdl Truck Driver Name Role Phone Benita Shafer INSPECTOR FLOOR Primary Care Provider [phone] Reason for Visit * Reason Onset Date Comments Labs Only 12/11/2018 Encounter Details Date Type Department Care Team (Late st Contact Info) Description 12/11/[address] [facility] Women's Services - [address] [address] Susana Tomlinson, RN Labs Only Social History [...] VM, left general message: nurse calling from [facility] Women???s clinic, re: blood work, were able to have blood work done last week from labs drawn at [facility], plan was repeat blood work yesterday 12/10, need to follow this to zero, very important to have this follow-up. Please call the REAL ESTATE CONSULTANT nurses at [phone]. documented in this encounter Plan of Treatment Upcoming Encounters Date Type Department Care Team (Late st Contact Info) Description 02/21/2024 9:45 EDT Office Visit [facility] Adult Primary Care - [address] 658251 Carrington Calderon MD 1 [facility] 1 [place] [phone] 02/27/2024 8:30 EDT Telemedicine [facility] Sleep Program - [address] [phone] Dwight Colbert [address] [place] [address] [phone] 02/29/2024 10:30 EDT Appointment [facility] Radiology Nuclear Medicine and PET - [address] [phone] 02/29/2024 14:30 EDT Appointment [facility] Radiology Nuclear Medicine and PET [address] [phone] 03/01/2024 8:00 EDT Appointment [facility] Radiology Nuclear Medicine and PET - [address] [phone] 03/01/2024 9:30 EDT Appointment [facility] Radiology Nuclear Medicine and PET - [address] [address] documented as of this encounter Visit Diagnoses Not on filedocumented in this encounter Care Teams Regional Refrigerated Cdl Truck Driver Relationship Specialty Start Date End Date Benita Shafer NP PCP - General 08/22/18 06/17/19 documented as of this encounter
--- OUTSIDE RECORDS SUMMARY | 2024-02-06 13:41 | XMS_ITS | Encounter Summary ---
Author Organization [facility] Address [address] [place] [address] Care Team Providers Care County Or City Auditor Name Role Phone None, Provider Primary Care Provider Unavailabl e Reason for Visit * Reason Comments Initial Visit Encounter Details Date Type Department Care Team (Late st Contact Info) Description 10/01/2019 15:00 EDT Telemedicine [facility] Obstetrics & Midwifery - [address] 482141 Deepali Le MD [address] [place] [address], Level [address] [place] [address] with type 2 diabetes mellitus [...] Mayra Lund MD - 10/01/2019 1500 EDT [facility] Maternal Medicine History & Physical Cristy [...] has ranged from 8.8-11.2. Hasn't seen an quarry extraction worker in about a year due to some [...] 10/2018 10w4d ECTOPIC Comments: interstitial diagnosed at [facility]; given MTX 10/26/18 6 SAB 01/2018 6w0d SAB Comments: D&C at [facility] after nonviable on US; had to have repeat D&Bhavna November for retained POCs 5 06/2017 6w0d SAB Comments: D&C at [facility]; nonviable seen on US; fourth with current 4 SAB 02/2017 6w0d SAB Comments: D&C at [facility]; third with current 3 SAB 08/2015 10w0d SAB Comments: D&C at [facility]; 2nd with current 2 SAB 01/2015 9w0d SAB Comments: D&C at [facility]; first current 1 SAB 2005 6w0d SAB Comments: first ; ex ; twin confirmed by US at [facility]; no medical or surgical tx Past gynecological history: Regular monthly periods. Last Pap in January 2019 reports normal, never had abnormal Pap. No STIs. Past medical history: Cristy has a past medical history of Depression, Diabetes mellitus ([facility]), Migraine, unspecified, without mention of intractable migraine [...] the family. FOB great uncles all had RI under age 35. FOB twin brother at [...] miscarriage. High-risk in first trimester - Reviewed [facility] group practice and clinic flow. - labs [...] Lund MD PhD MFM Fellow, PGY5 Pager #[phone] Today's visit was provided through telemedicine audio-visual [...] application used to conduct the visit was SCYNEXIS. I spent a total of 15 minutes [...] in first trimester (Resolved 11/02/2019) - Reviewed [facility] group practice and clinic flow. - labs [...] [facility] [address] [phone] Carrington Calderon MD [address] [phone] 02/27/2024 8:30 EDT Telemedicine [facility] Sleep Program - [address] 359331 Dwight Colbert [address] [place] [address] [phone] 02/29/2024 10:30 EDT Appointment [facility] Radiology Nuclear Medicine and PET - [address] [phone] 02/29/2024 14:30 EDT Appointment [facility] Radiology Nuclear Medicine and PET - [address] [phone] 03/01/2024 8:00 EDT Appointment [facility] Radiology Nuclear Medicine and PET - [address] [address] 03/01/2024 9:30 EDT Appointment [facility] Radiology Nuclear Medicine and PET - [address] [address] documented as of this encounter Visit Diagnoses [...] documented as of this encounter Care Teams County Or City Auditor Relationship Specialty Start Date End Date None, Provider PCP - General 06/18/19 11/25/19 documented as of this encounter
--- OUTSIDE RECORDS SUMMARY | 2024-02-06 13:41 | XMS_ITS | Encounter Summary ---
Author Organization [facility] Address [address] [place] [address] Care Team Providers Care Digital Media Intern Name Role Phone None, Provider Primary Care Provider Unavailabl e Reason for Visit * Reason Comments Injections RhoGAM Encounter Details Date Type Department Care Team (Late st Contact Info) Description 10/03/2019 10:30 EDT Office Visit [facility] Obstetrics & Midwifery - [facility] [address] [place] [address] Nurse, Mfm First trimester bleeding (Primary Dx) [facility] - [address] 215121 Carrington Calderon MD [address] [place] [address] 1 [place] [phone] 02/27/2024 8:30 EDT Telemedicine [facility] Sleep Program - [address] [phone] Dwight Colbert [address] [place], [place] [address] 02/29/2024 10:30 EDT Appointment [facility] Radiology Nuclear Medicine and PET [address] [phone] 02/29/2024 14:30 EDT Appointment [facility] Radiology Nuclear Medicine and PET [address] [address] 03/01/2024 8:00 EDT Appointment [facility] Radiology Nuclear Medicine and PET [address] [phone] 03/01/2024 9:30 EDT Appointment [facility] Radiology Nuclear Medicine and PET [address] [phone] documented as of this encounter Visit Diagnoses Diagnosis First trimester bleeding- Primary Unspecified hemorrhage in early , antepartum documented in this encounter Administered Medications Administered Medications Medication Order MAR Action Action Date Dose Rate Site Rho(D) Immune Globulin IM Intramuscular Given 10/03/2019 10:56 EDT 300 mcg Right D eltoid documented in this encounter Care Teams Digital Media Intern Relationship Specialty Start Date End Date None, Provider PCP - General 06/18/19 11/25/19 documented as of this encounter
--- OUTSIDE RECORDS SUMMARY | 2024-02-06 13:41 | XMS_ITS | Encounter Summary ---
Author Organization [facility] Address [address] [place] [address] Care Team Providers Care Plycor Operator Name Role Phone None, Provider Primary Care Provider Unavailabl e Encounter Details Date Type Department Care Team (Late st Contact Info) Description 08/31/2019 8:45 EDT Phlebotomy Only [facility] 2 Phlebotomy [address] [place] [address] Systems Testing Laboratory Technician, Acc Phlebotomy Ectopic , unspecified location, unspecified [...] [facility] - [address] 079401 Carrington Calderon MD [address] [phone] 02/27/2024 8:30 EDT Telemedicine [facility] Sleep Program - [address] [phone] Dwight Colbert [address] [place] [address] [phone] 02/29/2024 10:30 EDT Appointment [facility] Radiology Nuclear Medicine and PET [address] [phone] 02/29/2024 14:30 EDT Appointment [facility] Radiology Nuclear Medicine and PET [address] [phone] 03/01/2024 8:00 EDT Appointment [facility] Radiology Nuclear Medicine and PET [address] [phone] 03/01/2024 9:30 EDT Appointment [facility] Radiology Nuclear Medicine and PET [address] [phone] documented as of this encounter Procedures Procedure Name Priority Date/Time Associated Diagnosis Comments QUANT BETA HCG, Routine 08/31/2019 8:45 EDT Ectopic , unspecified location, unspecified whether intrauterine present documented in this encounter Results * (ABNORMAL) QUANT BETA HCG, (08/31/2019 8:45 EDT) Beta HCG Quant, 316(H) <5 mIU/ml 08/31/2019 11:17 EDT [facility] Comment: NOTE: : Negative: Less than 5mIU/mL Indeterminant: Between 5 and 25 mIU/mL, recommend repeat testing in 48 hours Positive: Greater than 25 mIU/mL The results of this assay can be falsely lowered due to the consumption of Biotin. Blood 08/31/2019 8:45 EDT 08/31/2019 10:29 EDT Charu Flynn MD CHEMISTRY & BLOO D GAS ORDERABLES [facility] [address] [place] [address] documented in this encounter Visit Diagnoses Diagnosis Ectopic , unspecified location, unspecified whether intrauterine present affected by previous ectopic documented in this encounter Care Teams Plycor Operator Relationship Specialty Start Date End Date None, Provider PCP - General 06/18/19 11/25/19 documented as of this encounter
--- OUTSIDE RECORDS SUMMARY | 2024-02-06 13:41 | XMS_ITS | Encounter Summary ---
Author Organization [facility] Address [address] [place] [address] Care Team Providers Care Solderer Electronic Name Role Phone Benita Shafer FINISH GRINDER Primary Care Provider [phone] Reason for Visit * Reason Comments Social Work Encounter Details Date Type Department Care Team (Late st Contact Info) Description 01/03/2019 Community Health Team [facility] Women's Services - [address] [address] Eryn Diaz Social History Tobacco Use Types [...] to inform her that her next sched [facility] are on 01/10 and03/02 (left vm). [...] [facility] Adult Primary Care - [address] 696851 Carrington Calderon MD [address] [place] [address] 1 [place] [phone] 02/27/2024 8:30 EDT Telemedicine [facility] Sleep Program - [address] [phone] Dwight Colbert [address] [place] [phone] 02/29/2024 10:30 EDT Appointment [facility] Radiology Nuclear Medicine and PET - [address] [phone] 02/29/2024 14:30 EDT Appointment [facility] Radiology Nuclear Medicine and PET [address] [address] 03/01/2024 8:00 EDT Appointment [facility] Radiology Nuclear Medicine and PET [address] [address] 03/01/2024 9:30 EDT Appointment [facility] Radiology Nuclear Medicine and PET [address] [address] documented as of this encounter Visit Diagnoses Not on filedocumented in this encounter Care Teams Solderer Electronic Relationship Specialty Start Date End Date Benita Shafer NP PCP - General 08/22/18 06/17/19 documented as of this encounter
--- OUTSIDE RECORDS SUMMARY | 2024-02-06 13:41 | XMS_ITS | Encounter Summary ---
Author Organization [facility] Address [address] [place] [address] Care Team Providers Care Commercial Horticulture Instructor Name Role Phone None, Provider Primary [...] [facility] - [address] [phone] Carrington Calderon MD [address] [phone] 02/27/2024 8:30 EDT Telemedicine [facility] Sleep Program - [address] [address] Dwight Colbert [address] [place] [address] 125751 02/29/2024 10:30 EDT Appointment [facility] Radiology Nuclear Medicine and PET [address] 111431 02/29/2024 14:30 EDT Appointment [facility] Radiology Nuclear Medicine and PET [address] [phone] 03/01/2024 8:00 EDT Appointment [facility] Radiology Nuclear Medicine and PET [address] [phone] 03/01/2024 9:30 EDT Appointment [facility] Radiology Nuclear Medicine and PET [address] [phone] documented as of this encounter Visit Diagnoses Not on filedocumented in this encounter Care Teams Commercial Horticulture Instructor Relationship Specialty Start Date End Date None, Provider PCP - General 06/18/19 11/25/19 documented as of this encounter
--- OUTSIDE RECORDS SUMMARY | 2024-02-06 13:41 | XMS_ITS | Encounter Summary ---
Author Organization [facility] Address [address] [place] [address] Care Team Providers Care Hogshead Salvage Name Role Phone Benita Shafer CORPORATE RESPONSIBILITY OFFICER Primary Care Provider [phone] Reason for Visit * Reason Onset Date Comments Results 12/04/2018 Encounter Details Date Type Department Care Team (Late st Contact Info) Description 12/04/2018 Orders Only [facility] Women's Services - [address] [address] Lisseth Valdez RN Social History Tobacco Use [...] - 12/04/2018 1407 EDT Received Fax from [facility], results entered, will have faxed document scanned. documented in this encounter Plan of Treatment Upcoming Encounters Date Type Department Care Team (Late st Contact Info) Description 02/21/2024 9:45 EDT Office Visit [facility] Adult Primary Care - [address] [phone] Carrington Calderon MD [address] [phone] 02/27/2024 8:30 EDT Telemedicine [facility] Sleep Program - [address] 102731 Dwight Colbert [address] [place] [address]161 02/29/2024 10:30 EDT Appointment [facility] Radiology Nuclear Medicine and [address] [phone] 02/29/2024 14:30 EDT Appointment [facility] Radiology Nuclear Medicine and PET [address] [phone] 03/01/2024 8:00 EDT Appointment [facility] Radiology Nuclear Medicine and PET [address] [phone] 03/01/2024 9:30 EDT Appointment [facility] Radiology Nuclear Medicine and PET [address] [phone] documented as of this encounter Procedures Procedure Name Priority Date/Time Associated Diagnosis Comments QUANT BETA HCG, Routine 12/03/2018 documented in this encounter Results * QUANT BETA HCG, (12/03/2018) HCG, External 41.94 mIU/ml [facility] Comment:non- <5 Blood specimen (specimen) 12/03/2018 Historical Provider CHEMISTRY & BLOOD GAS ORDERABLES [facility] documented in this encounter Visit Diagnoses Not on filedocumented in this encounter Care Teams Hogshead Salvage Relationship Specialty Start Date End Date Benita Shafer NP PCP - General 08/22/18 06/17/19 documented as of this encounter
--- OUTSIDE RECORDS SUMMARY | 2024-02-06 13:41 | XMS_ITS | Encounter Summary ---
Author Organization [facility] Address [address] [place] [address] Care Team Providers Care Electric Deicer Inspector Name Role Phone Benita Shafer ELECTRIC SYSTEM OPERATOR Primary Care Provider [phone] Reason for Visit * Reason Onset Date Comments Labs Only 12/20/2018 Encounter Details Date Type Department Care Team (Late st Contact Info) Description 12/20/2018 Telephone [facility] Women's Services - [address] [address] Susana Tomlinson, RN Labs Only Social History [...] VM, left general message: nurse calling from [facility] Women???s clinic, re: bloodwork that was due Wednesday 12/20, spoke with lab last bloodwork was done 12/13, very important to get the blood work done, can change day of blood draw if would be better to get this done on . Please call the JOINT FILLER nurses at [phone]. This is the 3rd call to her. * Telephone Encounter - Michelle Sanchez RN - 12/21/2018 0904 EDT LM asking pt to call JOINT FILLER triage to f/u. If calls back, will discuss moving blood draw for HCG to Tuesday, as pt is off work on that day. TC to [facility]; confirmed that pt has not come to lab as of 1. * Telephone Encounter - Jordyn Wolfe RN - 12/20/2018 1653 EDT Call to [facility] lab. Patient has not gone in for blood work as of yet. Will have nurse call her tomorrow to follow-up if she has not gone in today. * Telephone Encounter - Susana Tomlinson RN - 12/20/2018 1326 EDT Spoke with lab @ [facility]: Cristy has not yet come [facility]. documented in this encounter Plan of Treatment Upcoming Encounters Date Type Department Care Team (Late st Contact Info) Description 02/21/2024 9:45 EDT Office Visit [facility] Adult Primary Care - [address] [address] Carrington Calderon MD [address] [phone] 02/27/2024 8:30 EDT Telemedicine [facility] Sleep Program - [address] [phone] Dwight Colbert [address] [place] [address] [phone] 02/29/2024 10:30 ED[facility] [address] [phone] 02/29/2024 14:30 EDT Appointment [facility] Radiology Nuclear Medicine and [address] 875151 03/01/2024 8:00 EDT Appointment [facility] Radiology Nuclear Medicine and PET [address] 814571 03/01/2024 9:30 EDT Appointment [facility] Radiology Nuclear Medicine and [address] [phone] documented as of this encounter Visit Diagnoses Not on filedocumented in this encounter Care Teams Electric Deicer Inspector Relationship Specialty Start Date End Date Benita Shafer NP PCP - General 08/22/18 06/17/19 documented as of this encounter
--- OUTSIDE RECORDS SUMMARY | 2024-02-06 13:41 | XMS_ITS | Encounter Summary ---
Author Organization [facility] Address [address] [place] [address] Care Team Providers Care Solar Sales Energy Advisor Name Role Phone None, Provider Primary [...] Visit [facility] Adult Primary Care - [address] [address] Carrington Calderon MD [address] [phone] 02/27/2024 8:30 EDT Telemedicine [facility] Sleep Program - [address] [address] Dwight Colbert [address] [place] [address] [phone] 02/29/2024 10:[address] [facility] Radiology Nuclear Medicine and PET [address] [phone] 02/29/2024 14:[address] [facility] Radiology Nuclear Medicine and PET [address] [phone] 03/01/2024 8:[address] [facility] Radiology Nuclear Medicine and PET [address] [phone] 03/01/2024 9:[address] [facility] Radiology Nuclear Medicine and PET [address] [phone] documented as of this encounter Visit Diagnoses Not on filedocumented in this encounter Care Teams Solar Sales Energy Advisor Relationship Specialty Start Date End Date None, Provider PCP - General 06/18/19 11/25/19 documented as of this encounter
--- OUTSIDE RECORDS SUMMARY | 2024-02-06 13:41 | XMS_ITS | Encounter Summary ---
Author Organization [facility] Address [address] [place] [address] Care Team Providers Care Broadcast Transmitter Operator Name Role Phone None, Provider Primary Care Provider Unavailabl e Reason for Visit * Reason Onset Date Comments 08/30/2019 Encounter Details Date Type Department Care Team (Late st Contact Info) Description 08/30/2019 Telephone [facility] Women's Services - [address] [address] Nilda Parisi RN Social History Tobacco Use [...] [facility] Adult Primary Care - [address] [phone] Carrington Calderon MD [address] [phone] 02/27/2024 8:30 EDT Telemedicine [facility] Sleep Program - [address] 432841 Dwight Colbert [address] [place] [address] [phone] 02/29/2024 10:30 EDT [facility] Radiology Nuclear Medicine and PET - [address] [phone] 02/29/2024 14:30 EDT [facility] Radiology Nuclear Medicine and PET - [address] 724051 03/01/2024 8:00 EDT [facility]ment [facility] Radiology Nuclear Medicine and PET - [address] 577651 03/01/2024 9:30 EDT Appointment [facility] Radiology Nuclear Medicine and PET - [address] [phone] documented as of this encounter Visit Diagnoses Not on filedocumented in this encounter Care Teams Broadcast Transmitter Operator Relationship Specialty Start Date End Date None, Provider PCP - General 06/18/19 11/25/19 documented as of this encounter
--- OUTSIDE RECORDS SUMMARY | 2024-02-06 13:41 | XMS_ITS | Encounter Summary ---
Author Organization [facility] Address [address] [place] [address] Care Team Providers Care Adz Worker Name Role Phone None, Provider Primary [...] [facility] Adult Primary Care - [address] 110881 Carrington Calderon MD [address] [phone] 02/27/2024 8:30 EDT Telemedicine [facility] Sleep Program - [address] [address] Dwight Colbert [address] [place] [address]421 02/29/2024 10:30 EDT Appointment [facility] Radiology Nuclear Medicine and PET [address] [phone] 02/29/2024 14:30 EDT Appointment [facility] Radiology Nuclear Medicine and PET [address] [phone] 03/01/2024 8:00 EDT Appointment [facility] Radiology Nuclear Medicine and PET [address] [phone] 03/01/2024 9:30 EDT Appointment [facility] Radiology Nuclear Medicine and PET [address] [phone] documented as of this encounter Visit Diagnoses Not on filedocumented in this encounter Care Teams Adz Worker Relationship Specialty Start Date End Date None, Provider PCP - General 06/18/19 11/25/19 documented as of this encounter
--- OUTSIDE RECORDS SUMMARY | 2024-02-06 13:42 | XMS_ITS | Encounter Summary ---
Author Organization [facility] Address [address] [place] [address] Care Team Providers Care Director Design Name Role Phone Benita Shafer REPORT WRITER Primary Care Provider [phone] Encounter Details Date Type Department Care Team (Late st Contact Info) Description 10/26/2018 Phlebotomy Only [facility] - [address] [address] Commercial Art Instructor, Outpatient Complication of in first trimester (Primary [...] Visit [facility] Adult Primary Care - [address] [address] Carrington Calderon MD 1 [facility] Level 1 [place] [address] 02/27/2024 8:30 EDT Telemedicine [facility] Sleep Program - [address] [place] [address] Dwight Colbert [address] [place], [place] [address] 02/29/2024 10:30 EDT Appointment [facility] Radiology Nuclear Medicine and PET - [address] [address] 02/29/2024 14:30 EDT Appointment [facility] Radiology Nuclear Medicine and PET - [address] [id number] 03/01/2024 8:00 EDT Appointment [facility] Radiology Nuclear Medicine and PET [address] [phone] 03/01/2024 9:30 EDT Appointment [facility] Radiology Nuclear Medicine and PET [address] [address] documented as of this encounter Procedures Procedure Name Priority Date/Time Associated Diagnosis Comments QUANT BETA HCG, Routine 10/26/2018 8:48 EDT Complication of in first trimester documented in this encounter Results * (ABNORMAL) QUANT BETA HCG, (10/26/2018 8:48 EDT) Quant Beta HCG, Preg 1,531(H) <5 mIU/ml 10/26/2018 9:[address] [facility] Comment: Reference Range: Negative = <5 Indeterminate = 5-25 recommend repeat in 48 hours. Positive = >25 The results of this assay can be falsely lowered due to the consumption of Biotin. Blood specimen (specimen) BLOOD SPECIMEN / Unknown 10/26/2018 8:48 EDT 10/26/2018 9:00 EDT Ana Coronado MD CHEMISTRY & BLOOD GAS ORDERABLES [facility] [address] [place] [address] documented in this encounter Visit Diagnoses Diagnosis Complication of in first trimester- Primary documented in this encounter Care Teams Director Design Relationship Specialty Start Date End Date Benita Shafer NP PCP - General 08/22/18 06/17/19 documented as of this encounter
--- OUTSIDE RECORDS SUMMARY | 2024-02-06 13:42 | XMS_ITS | Encounter Summary ---
Author Organization [facility] Address [address] [place] [address] Care Team Providers Care Soaker Soda Worker Name Role Phone Benita Shafer GUSTAVO Primary Care Provider [phone] Reason for Referral * Consult (Routine) - Closed Specialty Diagnoses / Procedures Referred By Kit goode Referred To Contact Obstetrics Diagnoses Poorly controlled type 2 diabetes mellitus ([facility]) Tobacco dependence Class II obesity Jonas Ojeda MD [address] [place] [address] [facility] Ep4 Ob/Mfm [address] [place] [address] Referral ID Status Reason Start Date Expiration Date V isits Requested Visits Authorized [id number] Closed Specialty Services Required 11/03/2018 1 1 [...] Diagnoses Poorly controlled type 2 diabetes mellitus ([facility]) Recurrent loss Jonas Ojeda MD [address] [place] [address] [facility] Endocrinology [address] [place] [address] Referral ID Status Reason Start Date Expiration Date Visits Requested Visits Authorized [id number] Specialty Report Received Specialty Services Required 11/03/2018 [...] complication, with long-term current use of insulin ([facility]) Abnormal human chorionic gonadotropin (hCG) 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 Charu Flynn MD [address] [place] [address] 4 [place] [address] [facility] Mp4 Edis [address] [place] [address] Referral ID Status Reason Start Date Expiration Date Visits Requested Visits Authorized [id number] Specialty Report Received Specialty Services Required 10/26/2018 1 1 Encounter Details Date Type Department Care Team (Latest Contact Info) Description 11/03/2018 9:00 EDT Office Visit [facility] [address] [address] Jonas Ojeda MD [address] [place] [address] [address] Poorly controlled type 2 diabetes [...] from the patient and cross reviewing her [facility] records for accuracy. Of note, the patient's [...] her PCPs office (Benita Shafer NP - [place]) approximately 1 to 2 months ago. Patient reports feeling frustrated with her sugar control and would like a more aggressive management plan. She has never seen an cistern room operator nor has been on an insulin pump, but she isvery interested in pursuing this. Other notable history includes tobacco dependence smoking approximately half a pack to a full pack per day for the last 4 years. She also smokes marijuana 1-2 times daily. Full review of her medical, surgical, medication, allergies, and social history obtained and is accurate and up-to-date in [facility]. OB History Para Term AB Living 7 0 0 0 7 0 SAB TAB Ectopic Multiple Live Births 6 0 1 0 0 # Outcome Date GA Lbr Partha/2nd Weight Sex Delivery Anes PTL Lv 7 Ectopic 10/2018 10w4d ECTOPIC Comments: interstitial diagnosed at [facility]; given MTX 10/26/18 6 SAB 01/2018 6w0d SAB Comments: D&C at [facility] after nonviable on US; had to have repeat D&Bhavna November for retained POCs 5 SAB 06/2017 6w0d SAB Comments: D&C at [facility]; nonviable seen on US; fourth with current 4 SAB 02/2017 6w0d SAB Comments: D&C at [facility]; third with current 3 SAB 08/2015 10w0d SAB Comments: D&C at [facility]; 2nd with current 2 SAB 01/2015 9w0d SAB Comments: D&C at [facility]; first current 1 SAB 2005 6w0d SAB Comments: first ; ex ; twin confirmed by US at [facility]; no medical or surgical tx Patient [...] not cover this medication. There is an wwfq-hlm-tcqtdsf cream or an ozvy-ahv-wgdwxip patch with a lower concentration that is [...] Hives Communicable Disease: None Review of Systems CLIENT LEADER ROS: negative Ambulance Dispatcher Review of Systems Objective: BP 118/72 Physical Exam Assessment: 33 y.o. female with recurrent loss most certainly secondary to poorly controlled type 2 diabetes in conjunction with tobacco dependence who presents for consultation. Plan: Cristy was seen today for recurrent miscarriage. Diagnoses and all orders for this visit: Poorly controlled type 2 diabetes mellitus ([facility]) - AMB CONS/FOLLOW UP ENDOCRINOLOGY - AMB [...] MD, PGY5 Fellow Reproductive Endocrinology & Infertility [facility] 11/03/2018 / 9:54 EDIS Attending Addendum: [...] [facility] Adult Primary Care - [address] [phone] Carrington Calderon MD [address] [id number] 02/27/2024 8:30 EDT Telemedicine [facility] Sleep Program - [address] [phone] Dwight Colbert [address] [place] [id number] 02/29/2024 10:30 EDT Appointment [facility] Radiology Nuclear Medicine and PET - [address] [id number] 02/29/2024 14:30 EDT Appointment [facility] Radiology Nuclear Medicine and PET [address] [phone] 03/01/2024 8:00 EDT Appointment [facility] Radiology Nuclear Medicine and PET - [address] [phone] 03/01/2024 9:30 EDT Appointment [facility] Radiology Nuclear Medicine and PET [address] [phone] Scheduled Referrals Name Type Priority Associated Diagnoses Order Schedule AMB CONS/FOLLOW UP ENDOCRINOLOGY Outpatient Referral Routine Poorly controlled type 2 diabetes mellitus ([facility]) Recurrent loss Ordered: 11/03/2018 AMB CONS/FOLLOW UP MATERNAL MEDICINE Outpatient Referral Routine Poorly controlled type 2 diabetes mellitus ([facility]) Tobacco dependence Class II obesity Ordered: 11/03/2018 documented as of this encounter Results * (ABNORMAL) THYROID CASCADE (11/03/2018 10:47 EDT) Pathologist [facility] TSH 0.40(L) 0.47 - 4.68 uIU/ml 11/03/2018 12:19 EDT [facility] Comment: TSH cascade is not recommended for patients in which pituitary or hypothalamic disorders are suspected. The results of this assay can be falsely lowered due to the consumption of Biotin. Blood specimen (specimen) BLOOD SPECIMEN / Unknown 11/03/2018 10:47 EDT 11/03/2018 11:17 EDT Jonas Ojeda MD CHEMISTRY & BLOOD GA S ORDERABLES [facility] [address] [place] [address] * PROLACTIN (11/03/2018 10:47 EDT) Pathologist [facility] Prolactin 5.4 ng/ml 11/03/2018 13:09 EDT [facility] Comment: Non-: 2.8-29.2 : 9.7-208.5 Post Menopausal: 1.8-20.3 Blood specimen (specimen) BLOOD SPECIMEN / Unknown 11/03/2018 10:47 EDT 11/03/2018 11:17 EDT Jonas Ojeda MD CHEMISTRY & BLOOD GA S ORDERABLES Performing Organization Address [facility] Co de Phone Number [facility] [address] [place] [address] * HEMOGLOBIN A1C (11/03/2018 10:47 EDT) Hemoglobin A1C 10.9 % 11/03/2018 15:29 EDT [facility] Comment: Reference Range: <5.7% Normal 5.7-6.4% Prediabetes =>6.5% Diagnostic for diabetes (if confirmed) Goals for glycemic control in diabetes ADA 2017 For non adults with diabetes: ?? Target <7.0% For children and adolescents with type 1 diabetes: ?? Target <7.5% More or less stringent targets may be appropriate for individual patients. Est Avg Glucose 266 mg/dl 9 15:29 EDT [facility] Comment: eAG represents the A1c result expressed as average glucose in mg/dl. Blood specimen (specimen) BLOOD SPECIMEN / Unknown 11/03/2018 10:47 EDT 11/03/2018 11:17 EDT Jonas Ojeda MD CHEMISTRY & BLOOD GA S ORDERABLES Performing Organization Address [facility] Co de Phone Number [facility] [address] [place] [address] documented in this encounter Visit Diagnoses Diagnosis Poorly controlled type 2 diabetes mellitus ([facility])- Primary Type II or unspecified type diabetes mellitus without mention of complication, not stated as uncontrolled Recurrent loss Tobacco dependence Tobacco use disorder Class II obesity documented in this encounter Care Teams Soaker Soda Worker Relationship Specialty Start Date End Date Benita Shafer NP PCP - General 08/22/18 06/17/19 documented as of this encounter
--- OUTSIDE RECORDS SUMMARY | 2024-02-06 13:42 | XMS_ITS | Encounter Summary ---
Author Organization [facility] Address [address] [place] [address] Care Team Providers Care Industrial Designer Name Role Phone Benita Shafer COIL MACHINE OPERATOR Primary Care Provider [phone] Encounter Details Date Type Department Care Team (Late st Contact Info) Description 10/26/2018 Phlebotomy Only [facility] - [address] [address] Evp Operations, Outpatient 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 (Primary Dx) [...] [facility] - [address] [address] Carrington Calderon MD 1 [facility] Level 1 [place] [address] 02/27/2024 8:30 EDT Telemedicine [facility] Sleep Program - [address] [place] [address] Dwight Colbert [address] [place] [address] 02/29/2024 10:30 EDT Appointment [facility] Radiology Nuclear Medicine and PET - [address] [address] 02/29/2024 14:30 EDT Appointment [facility] Radiology Nuclear Medicine and PET - [address] [address] 03/01/2024 8:00 EDT Appointment [facility] Radiology Nuclear Medicine and PET [address] [phone] 03/01/2024 9:30 EDT Appointment [facility] Radiology Nuclear Medicine and PET [address] [address] documented as of this encounter Procedures Procedure [...] 26 mg/dl 10/26/2018 13:09 EDT [facility] Blood specimen (specimen) BLOOD SPECIMEN / Unknown 10/26/2018 12:28 EDT 10/26/2018 12:42 EDT Charu Flynn MD CHEMISTRY & BLOO D GAS ORDERABLES Performing Organization Address City/[facility]/ZIP Co de Phone Number [facility] [address] [place] [address] * (ABNORMAL) CREATININE (10/26/2018 12:28 EDT) Creatinine 0.44(L) 0.52 - 1.04 mg/dl 10/26/2018 13:09 EDT [facility] GFR, Calculated 133 >60 ml/min/1.7 3m2 10/26/2018 13:09 EDT [facility] Comment: eGFR calculated using CKD-EPI equation for non Americans. Multiply eGFR by 1.16 for Americans. Blood specimen (specimen) BLOOD SPECIMEN / Unknown 10/26/2018 12:28 EDT 10/26/2018 12:42 EDT Charu Flynn MD CHEMISTRY & BLOO D GAS ORDERABLES Performing Organization Address City/[facility]/ZIP Co de Phone Number [facility] [address] [place] [address] * ALT (10/26/2018 12:28 EDT) ALT 22 <53 U/L 10/26/2018 13:09 EDT [facility] Blood specimen (specimen) BLOOD SPECIMEN / Unknown 10/26/2018 12:28 EDT 10/26/2018 12:42 EDT Charu Flynn MD CHEMISTRY & BLOO D GAS ORDERABLES Performing Organization Address City/[facility]/ZIP Co de Phone Number [facility] [address] [place] [address] * (ABNORMAL) AST (10/26/2018 12:28 EDT) AST 14(L) 15 - 46 U/L 10/26/2018 13:09 EDT [facility] Blood specimen (specimen) BLOOD SPECIMEN / Unknown 10/26/2018 12:28 EDT 10/26/2018 12:42 EDT Charu Flynn MD CHEMISTRY & BLOO D GAS ORDERABLES [facility] [address] [place] [address] * COMPLETE BLOOD COUNT (10/26/2018 12:28 EDT) WBC 11.89 4.0 - 12.4 K/cmm 10/26/2018 13:06 T [facility] RBC 4.82 3.86 - 5.04 M/cmm 10/26/2018 13:06 [facility] Hemoglobin 15.0 11.6 - 15.2 gm/dl 10/26/2018 13:06 [facility] HCT 42.5 34.9 - 44.4 % 10/26/2018 13:06 [facility] MCV 88 81 - 98 fl 10/26/2018 13:06 T [facility] MCH 31.1 26.7 - 33.3 pg 10/26/2018 13:06 [facility] MCHC 35.3 32.1 - 35.9 gm/dl 10/26/2018 13:06 [facility] RDW-CV 11.9 <14.7 % 10/26/2018 13:06 [facility] RDW-SD 38.2 <50.4 fl 10/26/2018 13:06 [facility] PLT 358 141 - 377 K/cmm 10/26/2018 13:06 [facility] MPV 10.0 9.5 - 12.7 fl 10/26/2018 13:06 [facility] Blood specimen (specimen) BLOOD SPECIMEN / Unknown 10/26/2018 12:28 EDT 10/26/2018 12:42 EDT Charu Flynn MD HEMATOLOGY & PF4 ORDERABLES Performing Organization Address City/[facility]/ZIP Co de Phone Number [facility] [address] [place] [address] documented in this encounter Visit Diagnoses Diagnosis 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 - Primary documented in this encounter Care Teams Industrial Designer Relationship Specialty Start Date End Date Benita Shafer NP PCP - General 08/22/18 06/17/19 documented as of this encounter
--- OUTSIDE RECORDS SUMMARY | 2024-02-06 13:42 | XMS_ITS | Encounter Summary ---
Author Organization [facility] Address [address] [place] [address] Care Team Providers Care Clothes Drier Assembler Name Role Phone Benita Shafer FEED IN WORKER Primary Care Provider [phone] Reason for Visit * Reason Onset Date Comments Problem 10/31/2018 Encounter Details Date Type Department Care Team (Late st Contact Info) Description 10/31/2018 Orders Only [facility] Women's Services - [facility] [address] [place] [address] Susana Tomlinson RN 10 weeks gestation of [...] [facility] Adult Primary Care - [address] [phone] Carrington Calderon MD [address] [address] 02/27/2024 8:30 EDT Telemedicine [facility] Sleep Program - [address] [address] Dwight Colbert [address] [place] [address] 02/29/2024 10:30 EDT [facility]ment [facility] Radiology Nuclear Medicine and PET - [address] [address] 02/29/2024 14:30 EDT Appointment edical [place] Radiology Nuclear Medicine and PET [address] [address] 03/01/2024 8:00 EDT [facility] [address] [phone] 03/01/2024 9:30 EDT Appointment [facility] Radiology Nuclear Medicine and PET - [address] [address] documented as of this encounter Visit Diagnoses Diagnosis 10 weeks gestation of - Primary state, incidental documented in this encounter Care Teams Clothes Drier Assembler Relationship Specialty Start Date End Date Benita Shafer NP PCP - General 08/22/18 06/17/19 documented as of this encounter
--- OUTSIDE RECORDS SUMMARY | 2024-02-06 13:42 | XMS_ITS | Encounter Summary ---
Author Organization [facility] Address [address] [place] [address] Care Team Providers Care Site Supervisor Name Role Phone Benita Shafer NATIONAL SERVICE OFFICER Primary Care Provider [phone] Encounter Details Date Type Department Care Team (Late st Contact Info) Description 10/29/2018 Phlebotomy Only [facility] - [address] [address] Marketing Intelligence Manager, Outpatient 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 (Primary [...] [facility] Adult Primary Care - [address] [address] Carrington Calderon MD 1 [facility] Level 1 [place] [address] 02/27/2024 8:30 EDT Telemedicine [facility] Sleep Program - [address] [place] [address] Dwight Colbert [address] [place], [place] [address] 02/29/2024 10:30 EDT Appointment [facility] Radiology Nuclear Medicine and PET - [address] [address] 02/29/2024 14:30 EDT Appointment [facility] Radiology Nuclear Medicine and PET [address] [phone] 03/01/2024 8:00 EDT Appointment [facility] Radiology Nuclear Medicine and PET [address] [phone] 03/01/2024 9:30 EDT Appointment [facility] Radiology Nuclear Medicine and PET [address] [address] documented as of this encounter Procedures Procedure Name Priority Date/Time Associated Diagnosis Comments QUANT BETA HCG, Routine 10/29/2018 9:20 EDT 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 documented in this encounter Results * (ABNORMAL) QUANT BETA HCG, (10/29/2018 9:20 EDT) Quant Beta HCG, Preg 2,338(H) <5 mIU/ml 10/29/2018 10:[address] [facility] Comment: Reference Range: Negative = <5 Indeterminate = 5-25 recommend repeat in 48 hours. Positive = >25 The results of this assay can be falsely lowered due to the consumption of Biotin. Blood specimen (specimen) BLOOD SPECIMEN / Unknown 10/29/2018 9:20 EDT 10/29/2018 9:38 EDT Charu Flynn MD CHEMISTRY & BLOO D GAS ORDERABLES [facility] [address] [place] [address] documented in this encounter Visit Diagnoses Diagnosis 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 - Primary documented in this encounter Care Teams Site Supervisor Relationship Specialty Start Date End Date Benita Shafer NP PCP - General 08/22/18 06/17/19 documented as of this encounter
--- OUTSIDE RECORDS SUMMARY | 2024-02-06 13:42 | XMS_ITS | Encounter Summary ---
Author Organization [facility] Address [address] [place] [address] Care Team Providers Care Packing And Wrapping Supervisor Name Role Phone None, Provider Primary [...] 20:46 EDT - 12/05/2016 2:52 EDT [facility] - [address] [address] Benita Sol MD [address] [place] [address], Level 1 [place] [address] Emergency, MD Ekaterina Type 2 diabetes mellitus with hyperglycemia, with long-term current use of insulin ([facility]) (Primary Dx) Discharge Disposition: Home or Self [...] Allergy status to analgesic agent status-Z88.6[ICD-10-CM] Z79.4 detention (current) use of insulin-Z79.4[ICD-10-CM] documented in this encounter Discharge Instructions * Discharge Instructions* Benita Sol MD - 12/05/2016 2:13 EDT Metformin is $4/month at [facility]. Please see a primary care doctor [facility]. You can call from our list of accepting providers. Continue to take your Lantus. This is very important. * Attachments The following attachments cannot be sent through Care Everywhere. * DIABETES: TYPE 2: METFORMIN: GENERAL INFO (AUSTRIAN) * DIABETES DIET GUIDELINES: GENERAL INFO (AUSTRIAN) documented in this encounter Medications at Time [...] Value Status Glucose, Fingerstick 350 (*) Final Window Machine Operator ID [id number] Final GLUCOSE, GLUCOMETER - Abnormal Glucose, Fingerstick 316 (*) Final Window Machine Operator ID [id number] Final HEMAGRAM AND DIFFERENTIAL - Abnormal WBC [...] Bilirubin Neg Final Ketones Neg Final Specific [place] 1.020 Final pH 6.0 Final Protein Neg Final Urobilinogen 0.2 Final Nitrite Neg Final Leuk Esterase Neg Final Tech ID [id number] Final POCT TEST, CLINITEK UPT Result Neg Final Tech ID [id number] Final POCT GLUCOSE Relevant Data Procedures ED [...] the Emergency Department: Improved PCP: Provider None [facility] 12/05/2016 9:25 No flowsheet data found. This [...] [facility] - [place] [address] [place], [place] [address] Carrington Calderon MD [address] [place] [address] 1 [place] [address] 02/27/2024 8:30 EDT [facility] - [address] [address] Dwight Colbert [address] [place] [address] 02/29/2024 10:30 EDT Appointment [facility] Radiology Nuclear Medicine and PET [address] [phone] 02/29/2024 14:30 EDT Appointment [facility] Radiology Nuclear Medicine and PET [address] [id number] 03/01/2024 8:00 EDT Appointment [facility] Radiology Nuclear Medicine and PET [address] [address] 03/01/2024 9:30 EDT Appointment [facility] Radiology Nuclear Medicine and PET [address] 275431 documented as of this encounter Procedures Procedure [...] 1:16 EDT) Color YELLOW 12/05/2016 1:24 EDT [facility] Clarity, UA Clear 12/05/2016 1:24 EDT [facility] Glucose 3+(A) Neg 12/05/2016 1:24 EDT [facility] Bilirubin Neg Neg 12/05/2016 1:24 EDT [facility] Ketones Neg Neg 12/05/2016 1:24 EDT [facility] Specific [place] 1.020 1.001 - 1.035 12/05/2016 1:24 EDT [facility] Blood 2+(A) Neg 12/05/2016 1:24 EDT [facility] pH 6.0 4.6 - 8.0 12/05/2016 1:24 EDT [facility] Protein Neg Neg 12/05/2016 1:24 EDT [facility] Urobilinogen 0.2 0.2 - 1.0 E.U./dl 12/05/2016 1:24 EDT [facility] Nitrite Neg Neg 12/05/2016 1:24 EDT [facility] Leuk Esterase Neg Neg 12/05/2016 1:24 T [facility] sales representative malt liquors ID [id number] 12/05/2016 1:24 EDT [facility] Comment:Test performed at [facility] Department Urine specimen (specimen) URINE / Unknown 12/05/2016 1:16 EDT 12/05/2016 1:24 EDT Benita Sol MD POINT OF CARE TEST O RDERABLES [facility] [address] [place] [address] * POCT TEST, CLINITEK (12/05/2016 1:14 EDT) UPT Result Neg Neg 12/05/2016 1:27 EDT [facility] sales representative malt liquors ID [id number] [facility]/05[facility]2016 [facility]:Test performed at [facility] Urine specimen (specimen) URINE / Unknown 12/05/2016 1:14 EDT 12/05/2016 1:27 EDT Benita Sol MD POINT OF CARE TEST O RDERABLES [facility] [address] [place] [address] * (ABNORMAL) BASIC METABOLIC PANEL (12/05/2016 1:03 EDT) Sodium 140 136 - 145 mEq/L 12/05/2016 1:41 [facility] Potassium 4.4 3.5 - 5.0 mEq/L 12/05/2016 1:41 [facility] Chloride 101 96 - 110 mEq/L 12/05/2016 1:41 [facility] CO2 26 22 - 32 mEq/L 12/05/2016 1:41 [facility] BUN 14 10 - 26 mg/dl 12/05/2016 1:41 [facility] Creatinine 0.48(L) 0.52 - 1.04 mg/dl 12/05/2016 1:41 [facility] GFR, Calculated 131 >60 ml/min/1.7 3m2 12/05/2016 1:41 [facility] Comment: eGFR calculated using CKD-EPI equation for non Americans. Multiply eGFR by 1.16 for Americans. Calcium 9.9 8.5 - 10.5 mg/dl 12/05/2016 1:41 [facility] Calculated Calcium 9.7 8.5 - 10.5 mg/dl 12/05/2016 1:41 [facility] Glucose, Serum 295(H) 70 - 100 mg/dl 12/05/2016 1:41 [facility] Fasting? Unknown 12/05/2016 1:17 [facility] Blood specimen (specimen) BLOOD SPECIMEN / Unknown 12/05/2016 1:03 EDT 12/05/2016 1:17 EDT Benita Sol MD CHEMISTRY & BLOOD GA S ORDERABLES [facility] [address] [place] [address] * (ABNORMAL) HEMAGRAM AND DIFFERENTIAL (12/05/2016 1:03 EDT) WBC 16.71(H) 4.0 - 12.4 K/cmm 12/05/2016 [facility] RBC 5.08(H) 3.86 - 5.04 M/cmm 12/05/2016 1:22 [facility] Hemoglobin 15.6(H) 11.6 - 15.2 gm/dl 12/05/2016 1:22 [facility] HCT 43.8 34.9 - 44.4 % 12/05/2016 1:22 [facility] MCV 86 81 - 98 fl 12/05/2016 1:22 [facility] MCH 30.7 26.7 - 33.3 pg 12/05/2016 1:22 [facility] MCHC 35.6 32.1 - 35.9 gm/dl 12/05/2016 1:22 [facility] RDW-CV 12.2 <14.7 % 12/05/2016 1:22 [facility] RDW-SD 38.3 <50.4 fl 12/05/2016 1:22 [facility] PLT 415(H) 141 - 377 K/cmm 12/05/2016 1:22 [facility] MPV 9.6 9.5 - 12.7 fl 12/05/2016 1:22 [facility] Neutrophils 54.0 % 12/05/2016 2:05 [facility] Lymphocytes 34.0 % 12/05/2016 2:05 [facility] Monocytes 7.0 % 12/05/2016 2:05 [facility] Eosinophils 3.0 % 12/05/2016 2:05 [facility] Basophils 2.0 % 12/05/2016 2:05 EDT [facility] ABS Neutrophils 9.03(H) 2.20 - 8.85 K/cmm 12/05/2016 2:05 EDT [facility] ABS Lymphs 5.68(H) 1.09 - 3.30 K/cmm 12/05/2016 2:05 T [facility] ABS Monocytes 1.17(H) 0.1 - 0.8 K/cmm 12/05/2016 2:05 EDT [facility] ABS Eosinophils 0.50 0.03 - 0.61 K/cmm 12/05/2016 2:05 [facility] ABS Basophils 0.33(H) 0.01 - 0.11 K/cmm 12/05/2016 2:05 [facility] Type of Diff: Manual 12/05/2016 2:05 T [facility] Blood specimen (specimen) BLOOD SPECIMEN / Unknown 12/05/2016 1:03 EDT 12/05/2016 1:18 EDT Benita Sol MD PACKAGES & DNA PROBE ORDERABLES [facility] [address] [place] [address] * (ABNORMAL) GLUCOSE, GLUCOMETER (12/05/2016 0:32 EDT) Glucose, Fingerstick 316(H) 70 - 100 mg/dl 12/05/2016 0:32 EDT [facility] Window Machine Operator [place] [id number] 12/05/2016 0:32 EDT [facility] Comment:Test Performed by Nu ing Services BLOOD SPECIMEN / Unknown 12/05/2016 0:32 EDT 12/05/2016 0:33 EDT Provider Unknown CHEMISTRY & BLOOD GA S ORDERABLES Performing Organization Address City/[facility]/ZIP Co de Phone Number [facility] [address] [place] [address] * (ABNORMAL) GLUCOSE, GLUCOMETER (12/04/2016 20:58 EDT) Glucose, Fingerstick 350(H) 70 - 100 mg/dl 12/04/2016 21:02 EDT [facility] Window Machine Operator ID [id number] 12/04/2016 21:02 EDT [facility] Comment:Test Performed by Nu malcolming Services BLOOD SPECIMEN / Unknown 12/04/2016 20:58 EDT 12/04/2016 21:02 EDT Provider Unknown CHEMISTRY & BLOOD GA S ORDERABLES [facility] [address] [place] [address] documented in this encounter Visit Diagnoses Diagnosis Type 2 diabetes mellitus with hyperglycemia, with long-term current use of insulin ([facility])- Primary documented in this encounter [...] 12/05/2016 documented in this encounter Care Teams Packing And Wrapping Supervisor Relationship Specialty Start Date End Date None, Provider PCP - General 03/08/16 08/21/18 documented as of this encounter
--- OUTSIDE RECORDS SUMMARY | 2024-02-06 13:42 | XMS_ITS | Encounter Summary ---
Author Organization [facility] Address [address] [place] [address] Care Team Providers Care Molder Closed Molds Name Role Phone Benita Shafer GUSTAVO Primary Care Provider [phone] Reason for Visit * Reason Comments Problem Encounter Details Date Type Department Care Team (Late st Contact Info) Description 10/24/2018 13:00 EDT Initial consult [facility] Women's Services - [address] 949751 Ana Coronado MD 111 [facility], Level 4 [place] [address] Complication of in first trimester [...] all of her future care here at [facility]. Is planning to see the maternal- medicine doctors for her . O: SQL MANAGER US OB FIRST TRIMESTER TRANSVAGINAL Indication Early [...] Visualized. Embryo: Not visualized. Impression OB transvaginal [id number] 1. Small gestational sac with a yolk [...] she was told. I spent 30 minutes [id number] with the patient of which more than 50% of this time was spent counseling her about above documented issues and discussion. documented in this encounter Plan of Treatment Upcoming Encounters Date Type Department Care Team (Late st Contact Info) Description 02/21/2024 9:45 EDT Office Visit [facility] Adult Primary Care - [address] [address] Carrington Calderon MD [address] [facility] 1 [place] [address] 02/27/2024 8:30 EDT Telemedicine [facility] Sleep Program - [address] [address] Dwight Colbert [address] [place] [address] 925081 02/29/2024 10:30 EDT [facility] Radiology Nuclear Medicine and PET - [address] [address] 02/29/2024 14:30 EDT Appointment [facility] Radiology Nuclear Medicine and PET [address] 146771 03/01/2024 8:00 EDT [facility] [address] 977141 03/01/2024 9:30 EDT Appointment [facility] Radiology Nuclear Medicine and PET - [address] [phone] documented as of this encounter Visit Diagnoses Diagnosis Complication of in first trimester- Primary documented in this encounter Care Teams Molder Closed Molds Relationship Specialty Start Date End Date Benita Shafer NP PCP - General 08/22/18 06/17/19 documented as of this encounter
--- OUTSIDE RECORDS SUMMARY | 2024-02-06 13:42 | XMS_ITS | Encounter Summary ---
Author Organization [facility] Address [address] [place] [address] Care Team Providers Care License Clerk Name Role Phone Benita Shafer TOBACCO FEEDER CATCHER Primary Care Provider [phone] Reason for Visit * Reason Onset Date Comments Labs Only 10/29/2018 Encounter Details Date Type Department Care Team (Late st Contact Info) Description 10/29/2018 Telephone [facility] Women's Services - [address] [address] Deborah Saleh MD [address] [place] [address] Labs Only Social History [...] Encounter - Deborah Saleh MD - 10/29/2018 7979 EDT Left voicemail indicating we received Day 4 HCG s/p MTX. No changes to plan. Next lab draw on Day 7. Deborah Saleh MD 10/29/2018 17:50 Obstetrics & Gynecology, PGY-4 Pager [phone] documented in this encounter Plan of Treatment Upcoming Encounters Date Type Department Care Team (Late st Contact Info) Description 02/21/2024 9:45 EDT Office Visit [facility] Adult Primary Care - [address] [address] Carrington Calderon MD 1 [facility] 1 [place] [address] 02/27/2024 8:30 EDT Telemedicine [facility] Sleep Program - [address] [address] Dwight Colbert [address] [place] [phone] 02/29/2024 10:30 EDT Appointment [facility] Radiology Nuclear Medicine and PET [address] [phone] 02/29/2024 14:30 EDT Appointment [facility] Radiology Nuclear Medicine and PET [address] 932641 03/01/2024 8:00 EDT Appointment [facility] Radiology Nuclear Medicine and PET - [address] 417361 03/01/2024 9:30 EDT Appointment [facility] Radiology Nuclear Medicine and PET [address] 308111 documented as of this encounter Visit Diagnoses Diagnosis Ectopic , unspecified location, unspecified whether intrauterine present- Primary documented in this encounter Care Teams License Clerk Relationship Specialty Start Date End Date Benita Shafer NP PCP - General 08/22/18 06/17/19 documented as of this encounter
--- OUTSIDE RECORDS SUMMARY | 2024-02-06 13:42 | XMS_ITS | Encounter Summary ---
Author Organization [facility] Address [address] [place] [address] Care Team Providers Care Operations Project Manager Name Role Phone Benita Shafer GUSTAVO Primary Care Provider [phone] Encounter Details Date Type Department Care Team (Late st Contact Info) Description 10/24/2018 14:34 EDT - 10/24/2018 23:59 EDT Hospital Encounter [facility] [address] [place] [address] Ana Coronado MD [address] [facility], Level 4 [place] [address] Discharge Disposition: Auto Discharge Social [...] [facility] Adult Primary Care - [address] 677171 Carrington Calderon MD 1 [facility] 1 [place] [phone] 02/27/2024 8:30 EDT Telemedicine [facility] Sleep Program - [address] 334681 Dwight Colbert [address] [place] [address] [phone] 02/29/2024 10:30 EDT Appointment [facility] Radiology Nuclear Medicine and PET - [address] [address]14101 02/29/2024 14:30 EDT Appointment [facility] Radiology Nuclear Medicine and PET - [address] [phone] 03/01/2024 8:00 EDT [facility] Radiology Nuclear Medicine and PET - [address] [id number] 03/01/2024 9:30 EDT Appointment [facility] Radiology Nuclear Medicine and PET - [address] [phone] documented as of this encounter Visit Diagnoses Not on filedocumented in this encounter Care Teams Operations Project Manager Relationship Specialty Start Date End Date Benita Shafer NP PCP - General 08/22/18 06/17/19 documented as of this encounter
--- OUTSIDE RECORDS SUMMARY | 2024-02-06 13:42 | XMS_ITS | Encounter Summary ---
Author Organization [facility] Address [address] [place] [address] Care Team Providers Care Cash Posting Specialist Name Role Phone Benita Shafer GUSTAVO Primary Care Provider [phone] Encounter Details Date Type Department Care Team (Late st Contact Info) Description 10/26/2018 8:34 EDT - 10/26/2018 11:35 EDT Hospital Encounter [facility] [place] [address] [place] [address] Ana Coronado MD 111 [facility], Level [address] [place] [address] Discharge Disposition: Auto Discharge Social [...] [facility] - [address] 441431 Carrington Calderon MD 1 [facility] 1 [place] [phone] 02/27/2024 8:30 EDT Telemedicine [facility] Sleep Program - [address] 864861 Dwight Colbert [address] [place] [address] [phone] 02/29/2024 10:30 EDT Appointment [facility] Radiology Nuclear Medicine and PET - [address] 145561 02/29/2024 14:30 EDT Appointment [facility] Radiology Nuclear Medicine and PET - [address] [id number] 03/01/2024 8:00 EDT [facility] Radiology Nuclear Medicine and PET - [address] [phone] 03/01/2024 9:30 EDT Appointment [facility] Radiology Nuclear Medicine and PET - [address] 753011 documented as of this encounter Visit Diagnoses Not on filedocumented in this encounter Care Teams Cash Posting Specialist Relationship Specialty Start Date End Date Benita Shafer NP PCP - General 08/22/18 06/17/19 documented as of this encounter
--- OUTSIDE RECORDS SUMMARY | 2024-02-06 13:42 | XMS_ITS | Encounter Summary ---
Author Organization [facility] Address [address] [place] [address] Care Team Providers Care Combat Control Name Role Phone Benita Shafer FLOAT REMOVER Primary Care Provider [phone] Reason for Visit * Reason Onset Date Comments Labs Only 11/09/2018 Encounter Details Date Type Department Care Team (Late st Contact Info) Description 11/09/2018 Telephone [facility] Women's Services - [address] [address] Susana Tomlinson, RN Labs Only Social History [...] VM, left general message: Nurse calling from [facility], calling to check in & see how you are doing, also to remind you to get your blood work done, ok to get it drawn at [facility] to let us know when done & how you are doing. documented in this encounter Plan of Treatment Upcoming Encounters Date Type Department Care Team (Late st Contact Info) Description 02/21/2024 9:45 EDT Office Visit [facility] Adult Primary Care - [address] [phone] Carrington Calderon MD [address] [phone] 02/27/2024 8:30 EDT Telemedicine [facility] Sleep Program - [address] 601381 Dwight Colbert [address] [place] [phone] 02/29/2024 10:30 EDT Appointment [facility] Radiology Nuclear Medicine and PET - [address] [phone] 02/29/2024 14:30 EDT Appointment [facility] Radiology Nuclear Medicine and PET [address] [phone] 03/01/2024 8:00 EDT Appointment [facility] Radiology Nuclear Medicine and PET [address] [phone] 03/01/2024 9:30 EDT Appointment [facility] Radiology Nuclear Medicine and PET [address] [phone] documented as of this encounter Visit Diagnoses Not on filedocumented in this encounter Care Teams Combat Control Relationship Specialty Start Date End Date Benita Shafer NP PCP - General 08/22/18 06/17/19 documented as of this encounter
--- OUTSIDE RECORDS SUMMARY | 2024-02-06 13:42 | XMS_ITS | Encounter Summary ---
Author Organization [facility] Address [address] [place] [address] Care Team Providers Care Service Captain Name Role Phone Benita Shafer GUSTAVO Primary Care Provider [phone] Encounter Details Date Type Department Care Team (Late st Contact Info) Description 11/10/2018 Phlebotomy Only [address] [address] Restaurant Floor Manager, Outpatient Ectopic without intrauterine , unspecified location [...] [facility] Adult Primary Care - [address] [phone] Carrington Calderon MD 1 [facility] 1 [place] [address] 02/27/2024 8:30 EDT Telemedicine [facility] Sleep Program - [address] 367491 Dwight Colbert [address] [place] [address] [phone] 02/29/2024 10:30 EDT Appointment [facility] Radiology Nuclear Medicine and [address] [phone] 02/29/2024 14:30 EDT Appointment [facility] Radiology Nuclear Medicine and PET [address] [phone] 03/01/2024 8:00 EDT Appointment [facility] Radiology Nuclear Medicine and PET [address] [phone] 03/01/2024 9:30 EDT Appointment [facility] Radiology Nuclear [facility] and [address] [phone] documented as of this encounter Procedures Procedure Name Priority Date/Time Associated Diagnosis Comments QUANT BETA HCG, Routine 11/10/2018 8:52 EDT Ectopic without intrauterine , unspecified location documented in this encounter Results * (ABNORMAL) QUANT BETA HCG, (11/10/2018 8:52 EDT) Quant Beta HCG, Preg 1,117(H) <5 mIU/ml 11/10/2018 9:47 EDT [facility] Comment: Reference Range: Negative = <5 Indeterminate = 5-25 recommend repeat in 48 hours. Positive = >25 The results of this assay can be falsely lowered due to the consumption of Biotin. Blood specimen (specimen) BLOOD SPECIMEN / Unknown 11/10/2018 8:52 EDT 11/10/2018 9:00 EDT Charu Flynn MD CHEMISTRY & BLOO D GAS ORDERABLES [facility] [address] [place] [address] documented in this encounter Visit Diagnoses Diagnosis Ectopic without intrauterine , unspecified location- Primary documented in this encounter Care Teams Service Captain Relationship Specialty Start Date End Date Benita Shafer NP PCP - General 08/22/18 06/17/19 documented as of this encounter
--- OUTSIDE RECORDS SUMMARY | 2024-02-06 13:42 | XMS_ITS | Encounter Summary ---
Author Organization [facility] Address [address] [place] [address] Care Team Providers Care Director Long Term Care Name Role Phone Benita Shafer METER MAKER Primary Care Provider [phone] Encounter Details Date Type Department Care Team (Latest Contact Info) Description 11/03/2018 10:39 EDT - 11/03/2018 23:59 EDT Hospital Encounter [facility] [address] [place] [address] Jonas Ojeda MD [address] [place] [address] [address] Discharge Disposition: Auto Discharge Social [...] skin at bedtime. 11/26/2019 lancets [employer] or other brand compatible with lancing device and covered by patient's insurance. 100 Each 2 10/19/2018 10/01/2019 lidocaine 5 % (LIDODERM) 5 % patch To area of pain, apply for 12 hours on, then 12 hours off. Some insurance companies do not cover this medication. There is an qhqb-xus-usylnfi cream or an pxrp-bbx-nzytaty patch with a lower concentration that is [...] [facility] Adult Primary Care - [address] [phone] Carrington Calderon MD 1 [facility] 1 [place] [phone] 02/27/2024 8:30 EDT Telemedicine [facility] Sleep Program - [address] [phone] Dwight Colbert [address] [place] [address] 02/29/2024 10:30 EDT Appointment [facility] Radiology Nuclear Medicine and PET - [address] [id number] 02/29/2024 14:30 EDT Appointment [facility] Radiology Nuclear Medicine and PET [address] [id number] 03/01/2024 8:00 EDT Appointment [facility] Radiology Nuclear Medicine and PET [address] [phone] 03/01/2024 9:30 EDT Appointment [facility] Radiology Nuclear Medicine and PET [address] [address] documented as of this encounter Procedures Procedure Name Priority Date/Time Associated Diagnosis Comments T4, FREE REFLEX Routine 11/03/2018 10:47 EDT T3, TOTAL Routine 11/03/2018 10:47 EDT documented in this encounter Results * T3, TOTAL (11/03/2018 10:47 EDT) T3, Total 111 97 - 169 ng/dl 11/03/2018 14:02 EDT [facility] BLOOD SPECIMEN / Unknown 11/03/2018 10:47 EDT 11/03/2018 11:17 EDT Jonas Ojeda MD CHEMISTRY & BLOOD GA S ORDERABLES [facility] [address] [place] [address] * T4, FREE REFLEX (11/03/2018 10:47 EDT) T4, Free Reflex 1.2 0.8 - 2.2 ng/dl 11/03/2018 13:02 EDT [facility] BLOOD SPECIMEN / Unknown 11/03/2018 10:47 EDT 11/03/2018 11:17 EDT Jonas Ojeda MD CHEMISTRY & BLOOD GA S ORDERABLES [facility] [address] [place] [address] documented in this encounter Visit Diagnoses Not on filedocumented in this encounter Care Teams Director Long Term Care Relationship Specialty Start Date End Date Benita Shafer NP PCP - General 08/22/18 06/17/19 documented as of this encounter
--- OUTSIDE RECORDS SUMMARY | 2024-02-06 13:42 | XMS_ITS | Encounter Summary ---
Author Organization [facility] Address [address] [place] [address] Care Team Providers Care Scheduling Agent Name Role Phone Benita Shafer LEAVE SPECIALIST Primary Care Provider [phone] Reason for Visit * Reason Onset Date Comments Follow-up 09/06/2018 Encounter Details Date Type Department Care Team (Late st Contact Info) Description 09/06/2018 Telephone [facility] Urgent Care - [address] [address] [place] Davila, RN [address] [address] Follow-up Social History Tobacco Use Types Packs/Day [...] to follow up with her Opthalmologist in [facility], Per Dr Blanco we would like [...] [facility] Adult [facility] Care - [address] [address]681 Carrington Calderon MD [address] [phone] 02/27/2024 8:30 EDT Telemedicine [facility] Sleep Program - [address] [phone] Dwight Colbert [address] [place] [phone] 02/29/2024 10:30 EDT Appointment [facility] Radiology Nuclear Medicine and PET - [facility] [address] [place], [place] [address] 02/29/2024 14:30 EDT Appointment [facility] Radiology Nuclear Medicine and PET - [address] [phone] 03/01/2024 8:00 EDT Appointment [facility] Radiology Nuclear Medicine and PET - [address] [phone] 03/01/2024 9:30 EDT Appointment [facility] Radiology Nuclear Medicine and PET - [address] [address] documented as of this encounter Visit Diagnoses Not on filedocumented in this encounter Care Teams Scheduling Agent Relationship Specialty Start Date End Date Benita Shafer NP PCP - General 08/22/18 06/17/19 documented as of this encounter
--- OUTSIDE RECORDS SUMMARY | 2024-02-06 13:42 | XMS_ITS | Encounter Summary ---
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 She will go tothe lab now [...] loss, as well as lab hours and POULTRY INSEMINATOR triage phone number. Method: Handout and Verbal [...] EDT Office Visit [facility] Adult Primary Care - [address] [phone] Carrington Calderon MD [address] [place] [address] 1 [place] [phone] 02/27/2024 8:30 EDT Telemedicine [facility] Sleep Program - [address] [address] Dwight Colbert [address] [place], [place] 2[address] 02/29/2024 10:30 EDT Appointment [facility] Radiology Nuclear Medicine and PET - [address] [id number] 02/29/2024 14:30 EDT Appointment [facility] Radiology Nuclear Medicine and PET - [address] [phone] 03/01/2024 8:00 EDT Appointment [facility] Radiology Nuclear Medicine and PET - [address] [phone] 03/01/2024 9:30 EDT Appointment [facility] Radiology Nuclear Medicine and PET [address] [phone] Scheduled Referrals Name Type Priority Associated Diagnoses Orde r Schedule AMB CONS/FOLLOW UP INFERTILITY Outpatient Referral Routine Recurrent loss Type 2 diabetes mellitus without complication, with long-term current use of insulin ([facility]) Abnormal human chorionic gonadotropin (hCG) 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 Ordered: 10/26/2018 AMB CONS/FOLLOW UP MATERNAL MEDICINE Outpatient Referral Routine 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 Positive = >25 The results of this assay can be falsely lowered due to the consumption of Biotin. Blood specimen (specimen) BLOOD SPECIMEN / Unknown 10/29/2018 9:20 EDT 10/29/2018 9:38 EDT Charu Flynn MD CHEMISTRY & BLOO D GAS ORDERABLES Performing Organization Address City/[facility]/ZIP Co de Phone Number [facility] [address] [place] [address] * COMPLETE BLOOD COUNT (10/26/2018 12:28 EDT) WBC 11.89 4.0 - 12.4 K/cmm 10/26/2018 13:06 EDT [facility] RBC 4.82 3.86 - 5.04 M/cmm 10/26/2018 13:06 T [facility] Hemoglobin 15.0 11.6 - 15.2 gm/dl 10/26/2018 13:06 T [facility] HCT 42.5 34.9 - 44.4 % 10/26/2018 13:06 [facility] MCV 88 81 - 98 fl 10/26/2018 13:06 T [facility] MCH 31.1 26.7 - 33.3 pg 10/26/2018 13:06 T [facility] MCHC 35.3 32.1 - 35.9 gm/dl 10/26/2018 13:06 [facility] RDW-CV 11.9 <14.7 % 10/26/2018 13:06 [facility] RDW-SD 38.2 <50.4 fl 10/26/2018 13:06 [facility] PLT 358 141 - 377 K/cmm 10/26/2018 13:06 T [facility] MPV 10.0 9.5 - 12.7 fl 10/26/2018 13:06 [facility] Blood specimen (specimen) BLOOD SPECIMEN / Unknown 10/26/2018 12:28 EDT 10/26/2018 12:42 EDT Charu Flynn MD HEMATOLOGY & PF4 ORDERABLES Performing Organization Address City/[facility]/ZIP Co de Phone Number [facility] [address] [place] [address] * (ABNORMAL) AST (10/26/2018 12:28 EDT) AST 14(L) 15 - 46 U/L 10/26/2018 13:09 EDT [facility] Blood specimen (specimen) BLOOD SPECIMEN / Unknown 10/26/2018 12:28 EDT 10/26/2018 12:42 EDT Charu Flynn MD CHEMISTRY & BLOO D GAS ORDERABLES Performing Organization Address [place]/[facility] Co de Phone Number [facility] [address] [place] [address] * ALT (10/26/2018 12:28 EDT) ALT 22 <53 U/L 10/26/2018 13:09 EDT [facility] Blood specimen (specimen) BLOOD SPECIMEN / Unknown 10/26/2018 12:28 EDT 10/26/2018 12:42 EDT Charu Flynn MD CHEMISTRY & BLOO D GAS ORDERABLES Performing Organization Address [facility] de Phone Number [facility] [address] [place] [address] * (ABNORMAL) CREATININE (10/26/2018 12:28 EDT) Creatinine 0.44(L) 0.52 - 1.04 mg/dl 10/26/2018 13:09 EDT [facility] GFR, Calculated 133 >60 ml/min/1.7 3m2 10/26/2018 13:09 EDT [facility] Comment: eGFR calculated using CKD-EPI equation for non Americans. Multiply eGFR by 1.16 for Americans. Blood specimen (specimen) BLOOD SPECIMEN / Unknown 10/26/2018 12:28 EDT 10/26/2018 12:42 EDT Charu Flynn MD CHEMISTRY & BLOO D GAS ORDERABLES Performing Organization Address [place]/[facility] Co de Phone Number [facility] [address] [place] [address] * BUN (10/26/2018 12:28 EDT) BUN 11 10 - 26 mg/dl 10/26/2018 13:09 EDT [facility] Blood specimen (specimen) BLOOD SPECIMEN / Unknown 10/26/2018 12:28 EDT 10/26/2018 12:42 EDT Charu Flynn MD CHEMISTRY & BLOO D GAS ORDERABLES [facility] [address] [place] [address] documented in this encounter Visit Diagnoses Diagnosis 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
--- OUTSIDE RECORDS SUMMARY | 2024-02-06 13:42 | XMS_ITS | Encounter Summary ---
Author Organization [facility] Address [address] [place] [address] Care Team Providers Care Measurer Machine Name Role Phone Benita Shafer GUSTAVO Primary Care Provider Encounter Details Date Type Department Care Team (Late st Contact Info) Description 10/26/2018 11:36 EDT - 10/26/2018 23:59 EDT Hospital Encounter [facility] [address] [place] [address] Charu Flynn MD 111 [facility], Level 4 [place] [address] Discharge Disposition: Home or Self [...] Code Departure Means Destination Home or Self Senior Care documented in this encounter Plan of Treatment Upcoming Encounters Date Type Department Care Team (Late st Contact Info) Description 02/21/2024 9:45 EDT Office Visit [facility] Adult Primary Care - [address] 946301 Carrington Calderon MD [address] [phone] 02/27/2024 8:30 EDT Telemedicine [facility] Sleep Program - [address] [phone] Dwight Colbert [address] [place] [phone] 02/29/2024 10:30 EDT Appointment [facility] Radiology Nuclear Medicine and PET - [address] [phone] 02/29/2024 14:30 EDT Appointment [facility] Radiology Nuclear Medicine and PET - [address] [phone] 03/01/2024 8:00 EDT Appointment [facility] Radiology Nuclear Medicine and PET - [address] [phone] 03/01/2024 9:30 EDT Appointment [facility] Radiology Nuclear Medicine and PET - [address] 929221 documented as of this encounter Visit Diagnoses Not on filedocumented in this encounter Care Teams Measurer Machine Relationship Specialty Start Date End Date Benita Shafer NP PCP - General 08/22/18 06/17/19 documented as of this encounter
--- OUTSIDE RECORDS SUMMARY | 2024-02-06 13:42 | XMS_ITS | Encounter Summary ---
Author Organization [facility] Address [address] [place] [address] Care Team Providers Care Right Of Way Clearer Name Role Phone Benita Shafer PARK MANAGER Primary Care Provider [phone] Reason for Visit * Reason Onset Date Comments Labs Only 11/07/2018 Encounter Details Date Type Department Care Team (Late st Contact Info) Description 11/07/2018 Telephone [facility] Women's Services - [address] [address] Michelle Sanchez, MARCELO Labs Only Social History [...] in tomorrow. Patient given lab hours at [facility]. Lab opens up at 6. [...] Wolfe RN - 11/08/2018 1901 EDT Call [facility] lab. Patient had not gone into the lab as of now which is 1900. * Telephone Encounter - Michelle Sanchez RN - 11/07/2018 0945 EDT TC to Cristy to remind to go to lab for HCG tomorrow (11/08). Pt states she will go to [facility] lab in evening; advised we will be [...] following MTX administration. Reiterated bleeding precautions and RACK PUNCHER triage number if pt has questions/concerns. documented in this encounter Plan of Treatment Upcoming Encounters Date Type Department Care Team (Late st Contact Info) Description 02/21/2024 9:45 EDT Office Visit [facility] Adult Primary Care - [address] [phone] Carrington Calderon MD 1 [facility] 1 [place] [phone] 02/27/2024 8:30 EDT Telemedicine [facility] Sleep Program - [address] [phone] Dwight Colbert [address] [place] [address] 02/29/2024 10:30 EDT Appointment [facility] Radiology Nuclear Medicine and PET [address] [address] 02/29/2024 14:30 EDT Appointment [facility] Radiology Nuclear Medicine and PET [address] [phone] 03/01/2024 8:00 EDT Appointment [facility] Radiology Nuclear Medicine and PET [address] [phone] 03/01/2024 9:30 EDT Appointment [facility] Radiology Nuclear Medicine and PET [address] [address] documented as of this encounter Results * (ABNORMAL) QUANT BETA HCG, (11/10/2018 8:52 EDT) [facility] Quant Beta HCG, Preg 1,117(H) <5 mIU/ml 11/10/2018 9:47 EDT [facility] Comment: Reference Range: Negative = <5 Indeterminate = 5-25 recommend repeat in 48 hours. Positive = >25 The results of this assay can be falsely lowered due to the consumption of Biotin. Blood specimen (specimen) BLOOD SPECIMEN / Unknown 11/10/2018 8:52 EDT 11/10/2018 9:00 EDT Charu Flynn MD CHEMISTRY & BLOO D GAS ORDERABLES [facility] [address] [place] [address] documented in this encounter Visit Diagnoses Diagnosis Ectopic without intrauterine , unspecified location- Primary documented in this encounter Care Teams Right Of Way Clearer Relationship Specialty Start Date End Date Benita Shafer NP PCP - General 08/22/18 06/17/19 documented as of this encounter
--- OUTSIDE RECORDS SUMMARY | 2024-02-06 13:42 | XMS_ITS | Encounter Summary ---
Author Organization [facility] Address [address] [place] [address] Care Team Providers Care Butt Welder Name Role Phone Benita Shafer CONSTRUCTION SKILLS TEACHER Primary Care Provider [phone] Encounter Details Date Type Department Care Team (Late st Contact Info) Description 10/26/2018 Orders Only [facility] Women's Services - [facility] [address] [place], [place] [address]64[address] Charu Flynn MD 111 [facility] 4 [place] [phone] Social History Tobacco Use Types Packs/Day Years [...] [facility] - [address] 428331 Carrington Calderon MD 1 [facility] 1 [place] [phone] 02/27/2024 8:30 EDT Telemedicine [facility] Sleep Program - [address] [place] [address] [place] [address] [address] Col[address] [place] [phone] 02/29/2024 10:30 EDT Appointment [facility] Radiology Nuclear Medicine and PET [address] [address] 02/29/2024 14:30 EDT Appointment [facility] Radiology Nuclear Medicine and PET - [address] [address] 03/01/2024 8:00 EDT Appointment [facility] Radiology Nuclear Medicine and PET [address] 610731 03/01/2024 9:30 EDT Appointment [facility] Radiology Nuclear Medicine and PET [address] [address] documented as of this encounter Visit Diagnoses Not on filedocumented in this encounter Care Teams Butt Welder Relationship Specialty Start Date End Date Benita Shafer NP PCP - General 08/22/18 06/17/19 documented as of this encounter
--- OUTSIDE RECORDS SUMMARY | 2024-02-06 13:42 | XMS_ITS | Encounter Summary ---
Author Organization [facility] Address [address] [place] [address] Care Team Providers Care Residential Appliance Repair Technician Name Role Phone Benita Shafer GUSTAVO Primary Care Provider [phone] Reason for Visit * Reason Onset Date Comments Labs Only 11/01/2018 Encounter Details Date Type Department Care Team (Late st Contact Info) Description 11/01/2018 Telephone [facility] Women's Services - [address] [address] Charu Flynn MD 111 [facility], Level 4 [place] [address] Labs Only Social History Tobacco [...] documentation scanned. * Telephone Encounter - Susana Tmolinson RN - 11/01/2018 1606 EDT Spoke with [facility] lab BHCG today = 1652.8. Cristy ANDERSON: [...] to go to ER, can go to [facility] or [facility]. Spoke with Cristy: she denies SOB, but reports arm hurts when she coughs or moves, does not think her arm is swollen, reports had mild intermittent 4/10 cramping over weekend, no VB. Advised as HCG dropped appropriately will not need another MTX. She will proceed to [facility] ER. Spoke with ER triage: gave summary & Cristy ETA 5:30-6pm. * Telephone Encounter - Susana Tomlinson RN - 11/01/2018 1415 EDT Spoke with Radha @ [facility] lab, she could see [facility] lab orders [...] CBC (if needed) cannot be run from [facility]. RTCB to [phone] with quant HCG results. * Telephone Encounter - Miley Wolff - 11/01/2018 1400 EDT Radha from the outpatient lab at [facility] has some questions about the labwork for this patient. documented in this encounter Plan of Treatment Upcoming Encounters Date Type Department Care Team (Late st Contact Info) Description 02/21/2024 9:45 EDT Office Visit [facility] Adult Primary Care - [address] 515001 Carrington Calderon MD [address] [phone] 02/27/2024 8:30 EDT Telemedicine [facility] Sleep Program - [address] [phone] Dwight Colbert [address] [place] [phone] 02/29/2024 10:[address] [facility] Radiology Nuclear Medicine and PET - [address] [phone] 02/29/2024 14:30 EDT Appointment [facility] Radiology Nuclear Medicine and PET - [address] 655721 03/01/2024 8:[address] [facility] Radiology Nuclear Medicine and PET - [address] 038271 03/01/2024 9:30 EDT Appointment [facility] Radiology Nuclear Medicine and PET - [address] [address] documented as of this encounter Procedures Procedure Name Priority Date/Time Associated Diagnosis Comments QUANT BETA HCG, Routine 11/01/2018 11:09 EDT documented in this encounter Results * QUANT BETA HCG, (11/01/2018 11:09 EDT) HCG, External 1,652.8 2.39 - 1,500 mIU/mL [facility] Blood specimen (specimen) 11/01/2018 11:09 EDT Charu Flynn MD CHEMISTRY & BLOO D GAS ORDERABLES [facility] documented in this encounter Visit Diagnoses Not on filedocumented in this encounter Care Teams Residential Appliance Repair Technician Relationship Specialty Start Date End Date Benita Shafer NP PCP - General 08/22/18 06/17/19 documented as of this encounter
--- OUTSIDE RECORDS SUMMARY | 2024-02-06 13:42 | XMS_ITS | Encounter Summary ---
Author Organization [facility] Address [address] [place] [address] Care Team Providers Care Process Cheese Cooker Name Role Phone Benita Shafer ROOF CEMENT AND PAINT MAKER Primary Care Provider [phone] Reason for Visit * Reason Comments Arm Pain pt to ed c/o right s houlder pain that radiates down to right hand. pt states pain started last while walking. distal CSMT intact. denies trauma. Encounter Details Date Type Department Care Team (Late st Contact Info) Description 11/01/2018 17:45 EDT - 11/01/2018 21:27 EDT Emergency [facility] Emergency Department - Main [place] [address] [place] [address] Kevan Gr MD [address] [place] [address] Emergency, MD Ekaterina Arm pain, diffuse, right [...] pain-R07.89[ICD-10-CM] F17.210 Nicotine dependence, cigarettes, uncomplicated-F17.210[ICD-10-CM] Z79.84 custodial (current) use of oral hypoglycemic drugs-Z79.84[ICD-10-CM] Z79.4 intermediate manager (current) use of insulin-Z79.4[ICD-10-CM] Z88.6 Allergy status [...] not cover this medication. There is an xccz-cgk-gesehfc cream or an uhsu-fsx-pdzpjuo patch with a lower concentration that is [...] not cover this medication. There is an mltl-mcj-vkxmobh cream or an idky-xdg-lsnstin patch with a lower concentration that is [...] at the [facility] on 11/01/2018 Scribe attestation: This documentation is [...] to verify the correct patient, procedure, equipment, intranet support and site/side marked as required. Indications: pain [...] sudden decompensation. * Angelika Dallas - 11/01/2018 3869 EDT TCALL: Cristy Luo [birth year]. CC: Ectopic [...] [facility] - [address] [phone] Carrington Calderon MD [address] [phone] 02/27/2024 8:30 EDT Telemedicine [facility] Sleep Program - [address] [phone] Dwight Colbert [address] [place] [address] 02/29/2024 10:[address] [facility] Radiology Nuclear Medicine and PET [address] [address] 02/29/2024 14:[address] [facility] Radiology Nuclear Medicine and [address] 755001 03/01/2024 8:[address] [facility] Radiology Nuclear Medicine and PET [address] 860011 03/01/2024 9:[address] [facility] Radiology Nuclear Medicine and [address] [address] documented as of this encounter Procedures Procedure [...] 4.0 - 12.4 K/cmm 11/01/2018 20:22 EDT [facility] RBC 4.63 3.86 - 5.04 M/cmm 11/01/2018 20:22 T [facility] Hemoglobin 14.2 11.6 - 15.2 gm/dl 11/01/2018 20:22 EDT [facility] HCT 41.0 34.9 - 44.4 % 11/01/2018 20:22 EDT [facility] MCV 89 81 - 98 fl 11/01/2018 20:22 EDT [facility] MCH 30.7 26.7 - 33.3 pg 11/01/2018 20:22 [facility] MCHC 34.6 32.1 - 35.9 gm/dl 11/01/2018 20:22 [facility] RDW-CV 12.1 <14.7 % 11/01/2018 20:22 [facility] RDW-SD 38.3 <50.4 fl 11/01/2018 20:22 [facility] PLT 351 141 - 377 K/[facility] 11/01/2018 20:22 [facility] MPV 9.8 9.5 - 12.7 fl 11/01/2018 20:22 [facility] Neutrophils 59.3 % 11/01/2018 20:49 [facility] Lymphocytes 32.7 % 11/01/2018 20:49 [facility] Monocytes 4.4 % 11/01/2018 20:49 [facility] Eosinophils 2.7 % 11/01/2018 20:49 [facility] % Atyp Lymphs 0.9 % 11/01/2018 20:49 [facility] ABS Neutrophils 10.28(H) 2.20 - 8.85 K/cm 11/01/2018 20:49 [facility] ABS Lymphs 5.67(H) 1.09 - 3.30 K/cm 11/01/2018 20:49 [facility] ABS Monocytes 0.76 0.1 - 0.8 K/cmm 11/01/2018 20:49 [facility] ABS Eosinophils 0.47 0.03 - 0.61 K/cm 11/01/2018 20:49 [facility] ABS Atyp Lymphs 0.16 K/cm 9 20:49 [facility] Type of Diff: Manual 11/01/2018 20:49 [facility] Blood specimen (specimen) BLOOD SPECIMEN / Unknown 11/01/2018 19:38 EDT 11/01/2018 19:55 EDT Kevan Gr MD PACKAGES & DNA PROBE ORDERABLES Performing Organization Address City/[facility]/ZIP Co de Phone Number [facility] [address] [place] [address] * (ABNORMAL) BASIC METABOLIC PANEL (BMP) (11/01/2018 19:38 EDT) Sodium 136 136 - 145 mEq/L 11/01/2018 20:16 [facility] Potassium 4.1 3.5 - 5.0 mEq/L 11/01/2018 20:16 [facility] Chloride 99 96 - 110 mEq/L 11/01/2018 20:16 [facility] CO2 27 22 - 32 mEq/L 11/01/2018 20:16 [facility] BUN 10 10 - 26 mg/dl 11/01/2018 20:16 [facility] Creatinine 0.39(L) 0.52 - 1.04 mg/dl 11/01/2018 20:16 [facility] GFR, Calculated 138 >60 ml/min/1.7 3m2 11/01/2018 20:16 [facility] Comment: eGFR calculated using CKD-EPI equation for non Americans. Multiply eGFR by 1.16 for Americans. Calcium 10.2 8.5 - 10.5 mg/dl 11/01/2018 20:16 [facility] Calculated Calcium 10.2 8.5 - 10.5 mg/dl 11/01/2018 20:16 [facility] Glucose, Serum 225(H) 70 - 100 mg/dl 11/01/2018 20:16 [facility] Fasting? Unknown 11/01/2018 19:56 [facility] Blood specimen (specimen) BLOOD SPECIMEN / Unknown 11/01/2018 19:38 EDT 11/01/2018 19:55 EDT Kevan Gr MD CHEMISTRY & BLOOD GA S ORDERABLES Performing Organization Address City/[facility]/ZIP Co de Phone Number [facility] [address] [place] [address] * CK (11/01/2018 19:38 EDT) CK 42 30 - 135 U/L 11/01/2018 20:16 EDT [facility] Blood specimen (specimen) BLOOD SPECIMEN / Unknown 11/01/2018 19:38 EDT 11/01/2018 19:55 EDT Kevan Gr MD CHEMISTRY & BLOOD GA S ORDERABLES Performing Organization Address [facility] Co de Phone Number [facility] [address] [place] [address] * Nerve Block (11/01/2018 19:09 EDT) Narrative [facility] EKG - 11/01/2018 19:09 EDT [...] to verify the correct patient, procedure, equipment, intranet support and site/side marked as required. Indications: pain [...] PROCEDURE/MINOR SURG ICAL ORDERABLES Performing Organization Address City/[facility]/ZIP Co de Phone Number [facility] EKG documented in this encounter [...] RN) documented in this encounter Care Teams Process Cheese Cooker Relationship Specialty Start Date End Date Bneita Shafer NP PCP - General 08/22/18 06/17/19 documented as of this encounter
--- OUTSIDE RECORDS SUMMARY | 2024-02-06 13:42 | XMS_ITS | Encounter Summary ---
Author Organization [facility] Address [address] [place] [address] Care Team Providers Care Md Urologist Name Role Phone Benita Shafer CLOTH OPENER HAND Primary Care Provider Encounter Details Date Type Department Care Team (Late st Contact Info) Description 10/24/2018 Orders Only [facility] Women's Services - [address] [phone] Ana Coronado MD 111 [facility] 4 [place] [address] Complication of in first trimester [...] [facility] Adult Primary Care - [address] [phone] Carrington Calderon MD 1 [facility] 1 [place] [phone] 02/27/2024 8:30 EDT Telemedicine [facility] Sleep Program - [address] [place] [address] ColbertDwight garner [address] [place] [address] 02/29/2024 10:30 EDT Appointment [facility] Radiology Nuclear Medicine and PET - [address] [address] 02/29/2024 14:30 EDT Appointment [facility] Radiology Nuclear Medicine and PET [address] [phone] 03/01/2024 8:00 EDT Appointment [facility] Radiology Nuclear Medicine and PET [address] [phone] 03/01/2024 9:30 EDT Appointment [facility] Radiology Nuclear Medicine [place] [address] documented as of this encounter Results * (ABNORMAL) QUANT BETA HCG, (10/24/2018 14:42 EDT) [facility] Quant Beta HCG, Preg 1,286(H) <5 mIU/ml 10/24/2018 15:40 EDT [facility] Comment: Reference Range: Negative = <5 Indeterminate = 5-25 recommend repeat in 48 hours. Positive = >25 The results of this assay can be falsely lowered due to the consumption of Biotin. Blood specimen (specimen) BLOOD SPECIMEN / Unknown 10/24/2018 14:42 EDT 10/24/2018 14:54 EDT Ana Coronado MD CHEMISTRY & BLOOD GAS ORDERABLES [facility] [address] [place] [address] documented in this encounter Visit Diagnoses Diagnosis Complication of in first trimester- Primary documented in this encounter Care Teams Md Urologist Relationship Specialty Start Date End Date Benita Shafer NP PCP - General 08/22/18 06/17/19 documented as of this encounter
--- OUTSIDE RECORDS SUMMARY | 2024-02-06 13:42 | XMS_ITS | Encounter Summary ---
Author Organization [facility] Address [address] [place] [address] Care Team Providers Care Fruit Picker Name Role Phone Benita Shafer PERISHABLE FREIGHT INSPECTOR Primary Care Provider [phone] Encounter Details Date Type Department Care Team (Late st Contact Info) Description 11/03/2018 Phlebotomy Only [facility] - [address] [phone] Contract Negotiation Specialist, Outpatient Recurrent loss; 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 [...] [facility] Adult Primary Care - [address] [phone] Carrington Calderon MD 1 [facility] Level 1 [place] [phone] 02/27/2024 8:30 EDT Telemedicine [facility] Sleep Program - [address] [place] [address] [place] [address] Dwight Colbert [address] [place], [place] [address] 02/29/2024 10:30 EDT Appointment [facility] Radiology Nuclear Medicine and PET - [address] [address] 02/29/2024 14:30 EDT Appointment [facility] Radiology Nuclear Medicine and PET - [address] [id number] 03/01/2024 8:00 EDT Appointment [facility] Radiology Nuclear Medicine and PET - [address] 603131 03/01/2024 9:30 EDT Appointment [facility] Radiology Nuclear Medicine and PET [address] [address] documented as of this encounter Procedures Procedure Name Priority Date/Time Associated Diagnosis Comments THYROID CASCADE Routine 11/03/2018 10:47 EDT Recurrent loss PROLACTIN Routine 11/03/2018 10:47 EDT Recurrent loss HEMOGLOBIN A1C Routine 11/03/2018 10:47 EDT Recurrent loss documented in this encounter Results * HEMOGLOBIN A1C (11/03/2018 10:47 EDT) Hemoglobin A1C 10.9 % 11/03/2018 15:29 EDT [facility] Comment: Reference Range: <5.7% [...] 266 mg/dl 9 15:29 EDT [facility] Comment: eAG represents the A1c result expressed as average glucose in mg/dl. Blood specimen (specimen) BLOOD SPECIMEN / Unknown 11/03/2018 10:47 EDT 11/03/2018 11:17 EDT Jonas Ojeda MD CHEMISTRY & BLOOD GA S ORDERABLES Performing Organization Address [facility] Co de Phone Number [facility] [address] [place] [address] * PROLACTIN (11/03/2018 10:47 EDT) Prolactin 5.4 ng/ml 11/03/2018 13:09 EDT [facility] Comment: Non-: 2.8-29.2 : 9.7-208.5 Post Menopausal: 1.8-20.3 Blood specimen (specimen) BLOOD SPECIMEN / Unknown 11/03/2018 10:47 EDT 11/03/2018 11:17 EDT Jonas Ojeda MD CHEMISTRY & BLOOD GA S ORDERABLES Performing Organization Address [facility] Co de Phone Number [facility] [address] [place] [address] * (ABNORMAL) THYROID CASCADE (11/03/2018 10:47 EDT) TSH 0.40(L) 0.47 - 4.68 uIU/ml 11/03/2018 12:19 EDT [facility] Comment: TSH cascade is not recommended for patients in which pituitary or hypothalamic disorders are suspected. The results of this assay can be falsely lowered due to the consumption of Biotin. Blood specimen (specimen) BLOOD SPECIMEN / Unknown 11/03/2018 10:47 EDT 11/03/2018 11:17 EDT Jonas Ojeda MD CHEMISTRY & BLOOD GA S ORDERABLES Performing Organization Address [facility] Co de Phone Number [facility] [address] [place] [address] documented in this encounter Visit Diagnoses Diagnosis Recurrent loss 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 documented in this encounter Care Teams Fruit Picker Relationship Specialty Start Date End Date Benita Shafer NP PCP - General 08/22/18 06/17/19 documented as of this encounter
--- OUTSIDE RECORDS SUMMARY | 2024-02-06 13:42 | XMS_ITS | Encounter Summary ---
Author Organization [facility] Address [address] [place] [address] Care Team Providers Care Engineering Coordinator Name Role Phone Benita Shafer SENIOR MEDIA BUYER Primary Care Provider [phone] Encounter Details Date Type Department Care Team (Late st Contact Info) Description 10/24/2018 Phlebotomy Only [facility] - [address] [address] Music Instructor, Outpatient Complication of in first trimester [facility] [address] [address] Carrington Calderon MD 1 [facility] Level 1 [place] [address] 02/27/2024 8:30 EDT Telemedicine [facility] Sleep Program - [address] [place] [address] [place] [address] Dwight Colbert [address] [place] [address] 02/29/2024 10:30 EDT Appointment [facility] Radiology Nuclear Medicine and PET - [address] [address] 02/29/2024 14:30 EDT Appointment [facility] Radiology Nuclear Medicine and PET - [address] [phone] 03/01/2024 8:00 EDT Appointment [facility] Radiology Nuclear Medicine and PET [address] [phone] 03/01/2024 9:30 EDT Appointment [facility] Radiology Nuclear Medicine and PET [address] [address] documented as of this encounter Procedures Procedure Name Priority Date/Time Associated Diagnosis Comments QUANT BETA HCG, Routine 10/24/2018 14:42 EDT Complication of in first trimester documented in this encounter Results * (ABNORMAL) QUANT BETA HCG, (10/24/2018 14:42 EDT) Quant Beta HCG, Preg 1,286(H) <5 mIU/ml 10/24/2018 15:40 EDT [facility] Comment: Reference Range: Negative = <5 Indeterminate = 5-25 recommend repeat in 48 hours. Positive = >25 The results of this assay can be falsely lowered due to the consumption of Biotin. Blood specimen (specimen) BLOOD SPECIMEN / Unknown 10/24/2018 14:42 EDT 10/24/2018 14:54 EDT Ana Coronado MD CHEMISTRY & BLOOD GAS ORDERABLES [facility] [address] [place] [address] documented in this encounter Visit Diagnoses Diagnosis Complication of in first trimester- Primary documented in this encounter Care Teams Engineering Coordinator Relationship Specialty Start Date End Date Benita Shafer NP PCP - General 08/22/18 06/17/19 documented as of this encounter
--- OUTSIDE RECORDS SUMMARY | 2024-02-06 13:42 | XMS_ITS | Encounter Summary ---
Author Organization [facility] Address [address] [place] [address] Care Team Providers Care Greige Goods Marker Name Role Phone SoniBenita GUSTAVO Primary Care Provider [phone] Reason for Visit * Reason Comments Diabetes * Consult (3 - 10 Business Days) - Specialty Report Received Specialty Diagnoses / Procedures Referred By Kit goode Referred To Contact Endocrinology Diagnoses Poorly controlled type 2 diabetes mellitus ([facility]) Recurrent loss Jonas Ojeda MD [address] [place] [address] [address] [facility] Endocrinology [address] [place] [address] Referral ID Status Reason Start Date Expiration Date Visits Requested Visits Authorized [id number] Specialty Report Received Specialty Services Required 11/03/2018 1 1 Encounter Details Date Type Department Care Team (Latest Contact Info) Description 11/10/2018 9:20 EDT Office Visit [facility] - [facility] [address] [place] [address] Sara Zafar NP [address] [place] [address] [address] [place] [address] Type 2 diabetes mellitus with hyperglycemia, with long-term current use of insulin ([facility]) (Primary Dx) Social History Tobacco Use Types [...] calL with med adjustments RD referral in [place] Take food records BS pre meal 80-120 [...] trimester miscarriages, most recently terminated a at [facility] 11/01/2018. Recurrent loss attributed to to poorly controlled type 2 diabetes in conjunction with tobacco dependence. She saw [facility]IDE on 11/03/2018, and was advised to get [...] her PCPs office (Benita Shafer, GUSTAVO - [place]) approximately 1 to 2 months ago . [...] 4 siblings, knows about 2, noDM. 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 [...] skin at bedtime. ??? lancets One Touch [employer] or other brand compatible with lancing device and covered by patient'sinsurance. (Patient not taking: Reported on 11/10/2018) 100 Each 2 ??? lidocaine 5 % (LIDODERM) 5 % patch To area of pain, apply for 12 hours on, then 12 hours off. Some insurance companies do not cover this medication. There is an ioyk-isk-tkggxwn cream or an gpsw-nhj-ittzegc patch with a lower concentration that is [...] to work closely with anRD either at [facility] or here to learn CHO ect, [...] and requirements I will calL with med [facility] RD referral in [place] Take food records BS pre meal 80-120 [...] Office Visit [facility] Adult Primary Care - [address] [phone] Carrington Calderon MD [address] [phone] 02/27/2024 8:30 EDT Telemedicine [facility] Sleep Program - [address] 118[address] Dwight Colbert [address] [place] [phone] 02/29/2024 10:30 EDT Appointment [facility] Radiology Nuclear Medicine and PET - [address] [phone] 02/29/2024 14:30 EDT Appointment [facility] Radiology Nuclear Medicine and PET - [address] [address] 03/01/2024 8:00 EDT Appointment [facility] Radiology Nuclear Medicine and PET [address] [address] 03/01/2024 9:30 EDT Appointment [facility] Radiology Nuclear Medicine and PET [address] [address] documented as of this encounter Visit Diagnoses Diagnosis Type 2 diabetes mellitus with hyperglycemia, with long-term current use of insulin ([facility])- Primary documented in this encounter Care Teams Greige Goods Marker Relationship Specialty Start Date End Date Benita Shafer NP PCP - General 08/22/18 06/17/19 documented as of this encounter
--- OUTSIDE RECORDS SUMMARY | 2024-02-06 13:42 | XMS_ITS | Encounter Summary ---
Author Organization [facility] Address [address] [place] [address] Care Team Providers Care Successfactors Consultant Name Role Phone Benita Shafer GARNISHMENT SPECIALIST Primary Care Provider [phone] Encounter Details Date Type Department Care Team (Late Contact Info) Description 11/01/2018 Orders Only [facility] Women's Services - [facility] [address] [place] [address] Lara Serrano RN [address] [place] [address] Right tubal without intrauterine (Primary Dx) Social [...] [facility] Adult Primary Care - [address] 158731 Carrington Calderon MD [address] [phone] 02/27/2024 8:30 EDT Telemedicine [facility] Sleep Program - [address] [phone] Dwight Colbert [address] [place] [address] [phone] 02/29/2024 10:30 EDT Appointment [facility] Radiology Nuclear Medicine and PET [address] [address] 02/29/2024 14:30 EDT Appointment [facility] Radiology Nuclear Medicine and PET [address] [phone] 03/01/2024 8:00 EDT Appointment [facility] Radiology Nuclear Medicine and PET [address] [phone] 03/01/2024 9:30 EDT Appointment [facility] Radiology Nuclear Medicine and PET [address] [phone] documented as of this encounter Visit Diagnoses Diagnosis Right tubal without intrauterine - Primary documented in this encounter Care Teams Successfactors Consultant Relationship Specialty Start Date End Date Benita Shafer NP PCP - General 08/22/18 06/17/19 documented as of this encounter
--- OUTSIDE RECORDS SUMMARY | 2024-02-06 13:42 | XMS_ITS | Encounter Summary ---
Author Organization [facility] Address [address] [place] [address] Care Team Providers Care Pipe Covering Molder Name Role Phone Benita Shafer GUSTAVO Primary Care Provider [phone] Reason for Referral * VIDEO NEWS EDITOR (Routine) - New Request Specialty Diagnoses / Procedures Referred By Kit t Referred To Contact Diagnoses Missed menses Procedures SUSTAINABILITY COACH US OB FIRST TRIMESTER TRANSVAGINAL Nohemy Sales MD [address] [place] [address], Level 4 [place] [address] Referral ID Status Reason Start Date Expiration Date V isits Requested Visits Authorized [id number] New Request 10/19/2018 1 1 Reason for Visit * Reason Onset Date Comments 10/19/2018 Encounter Details Date Type Department Care Team (Late st Contact Info) Description 10/19/2018 Telephone [facility] Obstetrics & Midwifery [address] [address] Mary Regalado RN Social History [...] .Initial Appt Screening Form Best Contact Number: [phone] [facility] Provider: HUGO for Type 2 diabetes LMP/Pt [...] h/o 5 miscarriages and traumatic experience with [facility] and would like to come [...] scribed to patient'spharmacy. Scheduled for first trimester SUSTAINABILITY COACH US for October 24 at 1:45pm- she [...] [facility] [address] 836641 Carrington Calderon MD 1 [facility] 1 [place] [phone] 02/27/2024 8:30 EDT Telemedicine [facility] Sleep Program - [address] [phone] Dwight Colbert [address] [place] [address]101 02/29/2024 10:30 EDT Appointment [facility] Radiology Nuclear Medicine and PET - [address] 099201 02/29/2024 14:30 EDT Appointment [facility] Radiology Nuclear Medicine and PET [address] [address] 03/01/2024 8:00 EDT Appointment [facility] Radiology Nuclear Medicine and PET [address] [address] 03/01/2024 9:30 EDT Appointment [facility] Radiology Nuclear Medicine and PET [address] [address] documented as of this encounter Procedures Procedure Name Priority Date/Time Associated Diagnosis Comments SUSTAINABILITY COACH US OB FIRST TRIMESTER TRANSVAGINAL Routine 10/24/2018 13:58 EDT Missed menses documented in this encounter Results * SUSTAINABILITY COACH US OB FIRST TRIMESTER TRANSVAGINAL (10/24/2018 13:58 [...] Visualized. Embryo: Not visualized. Impression OB transvaginal [id number] 1. Small gestational sac with a yolk [...] Visualized. Embryo: Not visualized. Impression OB transvaginal [id number] 1. Small gestational sac with a yolk [...] SERVICE: 10/24/2018 Nohemy Sales MD IMG US SUSTAINABILITY COACH ORDERABLE S documented in this encounter Visit Diagnoses Diagnosis Missed menses- Primary Absence of menstruation documented in this encounter Care Teams Pipe Covering Molder Relationship Specialty Start Date End Date Benita Shafer NP PCP - General 08/22/18 06/17/19 documented as of this encounter
--- OUTSIDE RECORDS SUMMARY | 2024-02-06 13:42 | XMS_ITS | Encounter Summary ---
Author Organization [facility] Address [address] [place] [address] Care Team Providers Care Weight Clerk Name Role Phone Benita Shafer HOME MANAGEMENT SUPERVISOR Primary Care Provider [phone] Reason for Visit * Reason Onset Date Comments Results 10/24/2018 Encounter Details Date Type Department Care Team (Late st Contact Info) Description 10/24/2018 Telephone [facility] Women's Services - [address] [id number] Ana Coronado MD 111 [facility], Level 4 [place] [address] Results Social History Tobacco Use [...] - Ana Coronado MD, MD - 10/24/2018 4765 EDT Patient called with hCG level and [...] [facility] - [address] 606[address] Carrington Calderon MD [address] [phone] 02/27/2024 8:30 EDT Telemedicine [facility] Sleep Program - [address] [phone] Dwight Colbert [address] [place] [address]48101 02/29/2024 10:30 EDT Appointment [facility] Radiology Nuclear Medicine and PET [address] [id number] 02/29/2024 14:30 EDT Appointment [facility] Radiology Nuclear Medicine and PET [address] [id number] 03/01/2024 8:00 EDT Appointment [facility] Radiology Nuclear Medicine and PET [address] [phone] 03/01/2024 9:30 EDT Appointment [facility] Radiology Nuclear Medicine and PET [address] [phone] documented as of this encounter Results * (ABNORMAL) QUANT BETA HCG, (10/26/2018 8:48 EDT) Quant Beta HCG, Preg 1,531(H) <5 mIU/ml 10/26/2018 9:52 EDT [facility] Comment: Reference Range: Negative = <5 Indeterminate = 5-25 recommend repeat in 48 hours. Positive = >25 The results of this assay can be falsely lowered due to the consumption of Biotin. Blood specimen (specimen) BLOOD SPECIMEN / Unknown 10/26/2018 8:48 EDT 10/26/2018 9:00 EDT Ana Coronado MD CHEMISTRY & BLOOD GAS ORDERABLES [facility] [address] [place] [address] documented in this encounter Visit Diagnoses Diagnosis Complication of in first trimester- Primary documented in this encounter Care Teams Weight Clerk Relationship Specialty Start Date End Date Benita Shafer NP PCP - General 08/22/18 06/17/19 documented as of this encounter
--- OUTSIDE RECORDS SUMMARY | 2024-02-06 13:42 | XMS_ITS | Encounter Summary ---
Author Organization [facility] Address [address] [place] [address] Care Team Providers Care Benefits Counselor Name Role Phone Benita Shafer PRACTICE MANAGER Primary Care Provider [phone] Encounter Details Date Type Department Care Team (Late st Contact Info) Description 11/03/2018 Orders Only [facility] Women's Services - [facility] [address] [place], [place] 0[address] Charu Flynn MD 111 [facility] 4 [place] [address] Social History Tobacco Use Types [...] [facility] - [address] 830451 Carrington Calderon MD [address] [place] [address] 1 [place] [address] 02/27/2024 8:30 EDT Telemedicine [facility] Sleep Program - [address] [phone] Dwight Colbert [address] [place], [place] 773201 02/29/2024 10:30 EDT [facility]ointment [facility] Radiology Nuclear Medicine and PET - [address] [id number] 02/29/2024 14:30 EDT Appointment [facility] Radiology Nuclear Medicine and PET [address] [id number] 03/01/2024 8:00 EDT Appointment [facility] Radiology Nuclear Medicine and PET [address] [id number] 03/01/2024 9:30 EDT Appointment [facility] Radiology Nuclear Medicine and PET [address] [phone] documented as of this encounter Procedures Procedure Name Priority Date/Time Associated Diagnosis Comments QUANT BETA HCG, Routine 11/01/2018 11:09 EDT documented in this encounter Results * QUANT BETA HCG, (11/01/2018 11:09 EDT) HCG, External 1,652.8 2.39 - 15,000 mIU/mL [facility] Comment:Please see the scann ed report in EPIC for further interpretation. Blood specimen (specimen) 11/01/2018 11:09 EDT Charu Flynn MD CHEMISTRY & BLOO D GAS ORDERABLES [facility] documented in this encounter Visit Diagnoses Not on filedocumented in this encounter Care Teams Benefits Counselor Relationship Specialty Start Date End Date Benita Shafer NP PCP - General 08/22/18 06/17/19 documented as of this encounter
--- OUTSIDE RECORDS SUMMARY | 2024-02-06 13:42 | XMS_ITS | Encounter Summary ---
Author Organization [facility] Address [address] [place] [address] Care Team Providers Care Right Of Way Maintenance Supervisor Name Role Phone Benita Shafer GUSTAVO Primary Care Provider [phone] Encounter Details Date Type Department Care Team (Late st Contact Info) Description 10/29/2018 9:12 EDT - 10/29/2018 23:59 EDT Hospital Encounter [facility] [address] [place] [address] Charu Flynn MD 111 [facility], Level 4 [place] [address] Discharge Disposition: Home or Self [...] [facility] [place] Adult Primary Care - [address] [phone] Carrington Calderon MD [address] [phone] 02/27/2024 8:30 EDT Telemedicine [facility] [place] [facility] Sleep Program - [address] 530871 Dwight Colbert [address] [place] [address] [phone] 02/29/2024 10:30 EDT Appointment [facility] Radiology Nuclear Medicine and PET - [address] [id number] 02/29/2024 14:30 EDT Appointment [facility] Radiology Nuclear Medicine and PET - [address] 818191 03/01/2024 8:00 EDT Appointment [facility] Radiology Nuclear Medicine and PET - [address] [id number] 03/01/2024 9:30 EDT Appointment [facility] Radiology Nuclear Medicine and PET - [address] [phone] documented as of this encounter Visit Diagnoses Not on filedocumented in this encounter Care Teams Right Of Way Maintenance Supervisor Relationship Specialty Start Date End Date Benita Shafer NP PCP - General 08/22/18 06/17/19 documented as of this encounter
--- OUTSIDE RECORDS SUMMARY | 2024-02-06 13:42 | XMS_ITS | Encounter Summary ---
Author Organization [facility] Address [address] [place] [address] Care Team Providers Care Wildlife Removal Specialist Name Role Phone Benita Shafer GUSTAVO Primary Care Provider [phone] Reason for Visit * Reason Comments Eye Problem Left eye lid pain an d swelling, onset Tuesday fiordaliza. recent shingle in that eye Encounter Details Date Type Department Care Team (Latest Contact Info) Description 09/06/2018 8:37 EDT - 09/06/2018 10:13 EDT Hospital Encounter [facility] - [address] [address] Fran Blanco MD 0 [place] [address] Unknown, ProviderMD Hordeolum externum of left upper [...] Attempted to call Dr Srikanth Levine at [facility] to request patient have follow up appointment [...] beginning of August. She was seen in [place] and had follow-up with the central office mechanic, Dr. Jerad Cruz. She reports that her symptoms completely resolved with the initial treatment. However around August 22 she had a rec urrence of the symptoms and was seen in the [facility] ED. She was thought to have [...] 09/04/201515, 08/19. Followed by Dr. López[facility] in [facility] ??? Family history of rheumatoid arthritis 09/04/2015 Mother, pt with chronic back pain. Told arthritis in spine in teen yrs. ??? Type 2 diabetes mellitus (HCC-CMS) 09/03/2015 Dx approx age 25. Controlled with lifestyle behaviors, wt loss. Had taken lantus in past 80u, Followed by endocrine in [facility]. Stopped few yrs ago until this past month. ??? Anxiety and depression 05/12/2010 Onset teen yrs. Treated with citalopram in approx 2012 - had SI, treated at [place]. Marijuana prn to help with stress/anxiety sx. [...] of further medications. Upon departure from [facility], the patient's pain was 8 on a zero to ten scale. Any further pain treatment will be at the discretion of the provider following up with the patient based on their clinical assessment . Condition at departure from the [facility] : Stable MDM 09/06/2018 [...] [facility] - [address] 395781 Carrington Calderon MD [address] [phone] 02/27/2024 8:30 EDT Telemedicine [facility] Sleep Program - [address] 107251 Dwight Colbert [address] [place] [phone] 02/29/2024 10:30 EDT Appointment [facility] Radiology Nuclear Medicine and PET - [address] [phone] 02/29/2024 14:30 EDT Appointment [facility] Radiology Nuclear Medicine and PET [address] [id number] 03/01/2024 8:00 EDT Appointment [facility] Radiology Nuclear Medicine and PET - [address] [phone] 03/01/2024 9:30 EDT Appointment [facility] Radiology Nuclear Medicine and PET [address] [phone] documented as of this encounter Visit Diagnoses Diagnosis Hordeolum externum of left upper eyelid- Primary Hordeolum externum Herpes zoster with ophthalmic complication, unspecified herpes zoster eye disease documented in this encounter Orders Nursing Count Last Ordered Date First Orde red Date VISUAL ACUITY SCREENING 1 09/06/2018 documented in this encounter Care Teams Wildlife Removal Specialist Relationship Specialty Start Date End Date Benita Shafer NP PCP - General 08/22/18 06/17/19 documented as of this encounter
--- OUTSIDE RECORDS SUMMARY | 2024-02-06 13:42 | XMS_ITS | Encounter Summary ---
Author Organization [facility] Address [address] [place] [address] Care Team Providers Care Oven Tender Bagels Name Role Phone Benita Shafer MEETING MANAGER Primary Care Provider [phone] Reason for Visit * Reason Comments Shingles States that she thin ks she is having a shingles flare on face and head, states had outbreak 3 weeks ago in same areas Encounter Details Date Type Department Care Team (Late st Contact Info) Description 08/22/2018 9:08 EDT - 08/22/2018 12:20 EDT Emergency [facility] Emergency Department - [address] [address] Doris Moreno MD [address] [place] [address], Level 1 [place] [phone] Emergency, MD Ekaterina Trigeminal herpes zoster (Primary [...] Type 2 diabetes mellitus without complications-E11.9[ICD-10-CM] Z79.84 [facility] (current) use of oral hypoglycemic drugs-Z79.84[ICD-10-CM] Z79.4 [facility] (current) use of insulin-Z79.4[ICD-10-CM] F17.210 Nicotine dependence, [...] is very important. Please follow-up with your supervisor press room as previously scheduled. Please contact your primary [...] be sent through Care Everywhere. * SHINGLES (HONDURAN) * NEUROPATHIC PAIN (HONDURAN) documented in this encounter Medications at Time [...] at the [facility] on 08/22/2018 Scribe attestation: This [...] Value Status Glucose, Fingerstick 234 (*) Final Bulldozer Operator ID [id number] Final POCT GLUCOSE Procedures Procedures ED course/Medical [...] [facility] - [address] [phone] Carrington Calderon MD [address] [phone] 02/27/2024 8:30 EDT Telemedicine [facility] Sleep Program - [address] [phone] Dwight Colbert [address] [place] [address] 629151 02/29/2024 10:30 EDT Appointment [facility] Radiology Nuclear Medicine and PET [address] [phone] 02/29/2024 14:30 EDT Appointment [facility] Radiology Nuclear Medicine and PET [address] [phone] 03/01/2024 8:00 EDT Appointment [facility] Radiology Nuclear Medicine and PET [address] [id number] 03/01/2024 9:30 EDT Appointment [facility] Radiology Nuclear Medicine and PET [address] [phone] documented as of this encounter Procedures Procedure Name Priority Date/Time Associated Diagnosis Comments GLUCOSE, GLUCOMETER Routine 08/22/2018 1 2:04 EDT documented in this encounter Results * (ABNORMAL) GLUCOSE, GLUCOMETER (08/22/2018 12:04 EDT) Glucose, Fingerstick 234(H) 70 - 100 mg/dl 08/22/2018 12:06 EDT [facility] Bulldozer Operator ID [id number] 08/22/2018 12:06 EDT [facility] Comment:Test Performed by [facility] BLOOD SPECIMEN / Unknown 08/22/2018 12:04 EDT 08/22/2018 12:06 EDT Provider Unknown CHEMISTRY & BLOOD GA S ORDERABLES [facility] [address] [place] [address] documented in this encounter Visit Diagnoses Diagnosis [...] 08/22/2018 documented in this encounter Care Teams Oven Tender Bagels Relationship Specialty Start Date End Date Benita Shafer NP PCP - General 08/22/18 06/17/19 documented as of this encounter
--- OUTSIDE RECORDS SUMMARY | 2024-02-06 13:42 | XMS_ITS | Encounter Summary ---
Author Organization [facility] Address [address] [place] [address] Care Team Providers Care Assistant Vice President Name Role Phone None, Provider Primary Care Provider Unavailabl e Reason for Visit * Reason Comments Threatened Miscarriage 6 weeks , started with brown discharge Cher, saw OB said it could be normal spotting. Tonight started with bright red vaginal bleeding. Problem Encounter Details Date Type Department Care Team (Late st Contact Info) Description 02/24/2017 22:50 EDT - 02/25/2017 3:[address] [facility] Emergency Department - [place] [address] [place] [address] Kylah Whitaker PA-C [address] [place] [address], Level 1 [place] [address] Emergency, MD Ekaterina Vaginal bleeding [...] be sent through Care Everywhere. * MISCARRIAGE (MOROCCAN) * VAGINAL BLEEDING (MOROCCAN) documented in this encounter Medications at Time [...] suprapubic, and RLQ). Genitourinary: Genitourinary Comments: Female manager room was present Multiple clots in the vaginal [...] added GLUCOSE, SERUM Final Number for problems [id number] (ED) Final Relevant Data Procedures ED COURSE [...] of 1604. (02:35) Discussed the patient with AMMONIA STILL OPERATOR. (03:07) Reevaluation. Patient endorsed continued pain but [...] [facility] Adult Primary Care - [address] 767581 Carrington Calderon MD [address] [place] [phone] 02/27/2024 8:[address] [facility] Sleep Program - [address] [phone] Dwight Colbert [address] [place] [address] 02/29/2024 10:30 EDT Appointment [facility] Radiology Nuclear Medicine and PET - [address] [phone] 02/29/2024 14:30 EDT Appointment [facility] Radiology Nuclear Medicine and PET [address] [phone] 03/01/2024 8:00 EDT Appointment [facility] Radiology Nuclear Medicine and PET [address] [phone] 03/01/2024 9:30 EDT Appointment [facility] Radiology Nuclear Medicine and PET [address] [phone] documented as of this encounter Procedures Procedure [...] be added GLUCOSE, SERUM 02/25/2017 2:40 EDT [facility] Number for problems [id number] (ED) 02/25/2017 2:40 EDT [facility] TOPOGRAPHY UNKNOWN / Unknown 02/25/2017 2:45 EDT 02/25/2017 2:46 EDT Kylah Whitaker PA-C HEMATOLOGY & PF4 ORD ERABLES [facility] [address] [place] [address] * RAD US PELVIS TRANSABDOMINAL AND TRANSVAGINAL (02/25/2017 1:42 EDT) Anatomical Region Laterality Modality Other 02/25/2017 1:42 EDT 02/25/2017 9:29 EDT Narrative 02/25/2017 9:29 EDT RAD US PELVIS TRANSABDOMINAL AND TRANSVAGINAL ??02/25/2017 1:42 AM Clinical History/Comments: vaginal bleeding Comparison: Per patient, ultrasound examination was obtained February 22, 2017 at her field supervisor seed production's office. This is not available for review. [...] was obtained February 22, 2017 at her field supervisor seed production's office. This is not available for review. [...] agree with the findings. Kylah Whitaker PA-C [facility] US ORDERABLES * (ABNORMAL) GLUCOSE, SERUM (02/25/2017 0:52 EDT) Glucose, Serum 280(H) 70 - 100 mg/dl 02/25/2017 3:22 EDT [facility] BLOOD SPECIMEN / Unknown 02/25/2017 0:52 EDT 02/25/2017 1:11 EDT Kylah Whitaker PA-C CHEMISTRY & BLOOD GA S ORDERABLES [facility] [address] [place] [address] * (ABNORMAL) HEMAGRAM AND DIFFERENTIAL (02/25/2017 0:52 EDT) WBC 18.10(H) 4.0 - 12.4 K/cmm 02/25/2017 1:16 [facility] RBC 4.45 3.86 - 5.04 M/cmm 02/25/2017 1:16 [facility] Hemoglobin 13.9 11.6 - 15.2 gm/dl 02/25/2017 1:16 [facility] HCT 38.1 34.9 - 44.4 % 02/25/2017 1:16 [facility] MCV 86 81 - 98 fl 02/25/2017 1:16 [facility] MCH 31.2 26.7 - 33.3 pg 02/25/2017 1:16 [facility] MCHC 36.5(H) 32.1 - 35.9 gm/dl 02/25/2017 1:16 [facility] RDW-CV 11.9 <14.7 % 02/25/2017 1:16 [facility] RDW-SD 37.2 <50.4 fl 02/25/2017 1:16 [facility] PLT 341 141 - 377 K/cmm 02/25/2017 1:16 [facility] MPV 9.4(L) 9.5 - 12.7 fl 02/25/2017 1:16 [facility] Neutrophils 62.0 % 02/25/2017 1:38 [facility] Lymphocytes 29.0 % 02/25/2017 1:38 [facility] Monocytes 6.0 % 02/25/2017 1:38 [facility] Eosinophils 3.0 % 02/25/2017 1:38 [facility] ABS Neutrophils 11.22(H) 2.20 - 8.85 K/cmm 02/25/2017 1:38 [facility] ABS Lymphs 5.25(H) 1.09 - 3.30 K/cmm 02/25/2017 1:38 EDT [facility] ABS Monocytes 1.09(H) 0.1 - 0.8 K/cmm 02/25/2017 1:38 EDT [facility] ABS Eosinophils 0.54 0.03 - 0.61 K/cmm 02/25/2017 1:38 EDT [facility] Type of Diff: Manual 02/25/2017 1:38 EDT [facility] Blood specimen (specimen) BLOOD SPECIMEN / Unknown 02/25/2017 0:52 EDT 02/25/2017 1:11 EDT Kylah Whitaker PA-C PACKAGES & DNA PROBE ORDERABLES Performing Organization Address [facility] Co de Phone Number [facility] [address] [place] [address] * (ABNORMAL) HCG FOR (02/25/2017 0:52 EDT) Quant Beta HCG, Preg 1,604(H) <5 mIU/ml 02/25/2017 2:06 EDT [facility] Comment: Reference Range: Negative = <5 Indeterminate = 5-25 recommend repeat in 48 hours. Positive = >25 Blood specimen (specimen) BLOOD SPECIMEN / Unknown 02/25/2017 0:52 EDT 02/25/2017 1:11 EDT Kylah Whitaker PA-C CHEMISTRY & BLOOD GA S ORDERABLES Performing Organization Address [facility] Co de Phone Number [facility] [address] [place] [address] documented in this encounter Visit Diagnoses Diagnosis [...] RN) documented in this encounter Care Teams Assistant Vice President Relationship Specialty Start Date End Date None, Provider PCP - General 03/08/16 08/21/18 documented as of this encounter
--- OUTSIDE RECORDS SUMMARY | 2024-02-06 13:42 | XMS_ITS | Encounter Summary ---
Author Organization [facility] Address [address] [place] [address] Care Team Providers Care Site Technician Name Role Phone Benita Shafer GUSTAVO Primary Care Provider [phone] Encounter Details Date Type Department Care Team (Late st Contact Info) Description 11/10/2018 8:38 EDT - 11/10/2018 23:59 EDT Hospital Encounter [facility] [address] [place] [address] Charu Flynn MD 111 [facility], Level 4 [place] [address] Discharge Disposition: Auto Discharge Social [...] skin at bedtime. 11/26/2019 lancets One Touch Deldscovered or other brand compatible with lancing device and covered by patient's insurance. 100 Each 2 10/19/2018 10/01/2019 lidocaine 5 % (LIDODERM) 5 % patch To area of pain, apply for 12 hours on, then 12 hours off. Some insurance companies do not cover this medication. There is an orfp-dfm-ydvjplh cream or an mvzo-obl-myiblkg patch with a lower concentration that is [...] [facility] - [address] [phone] Carrington Calderon MD [address] [phone] 02/27/2024 8:30 EDT Telemedicine [facility] Sleep Program - [address] [address] Dwight Colbert [address] [place] [phone] 02/29/2024 10:30 EDT Appointment [facility] Radiology Nuclear Medicine and PET [address] [phone] 02/29/2024 14:30 EDT Appointment [facility] Radiology Nuclear Medicine and PET [address] [address] 03/01/2024 8:00 EDT Appointment [facility] Radiology Nuclear Medicine and PET [address] [phone] 03/01/2024 9:30 EDT Appointment [facility] Radiology Nuclear Medicine and PET [address] [phone] documented as of this encounter Visit Diagnoses Not on filedocumented in this encounter Care Teams Site Technician Relationship Specialty Start Date End Date Benita Shafer NP PCP - General 08/22/18 06/17/19 documented as of this encounter
--- OUTSIDE RECORDS SUMMARY | 2024-02-06 13:43 | XMS_ITS | Encounter Summary ---
Author Organization [facility] Address [address] [place] [address] Care Team Providers Care Ballast Cleaning Machine Operator Name Role Phone None, Provider Primary Care Provider Unavailabl e Reason for Visit * Reason Onset Date Comments Other 07/30/2016 Encounter Details Date Type Department Care Team (Late st Contact Info) Description 07/30/2016 Telephone [facility] Ophthalmology - [facility] [address] [place], [place] [phone] Broderick Schwartz MD 111 [facility], Level 5 [place] [address] Other Social History Tobacco Use [...] Encounter - Catherine Dhillon, MARCELO - 07/30/2016 8853 EST Tried one more time, still no go. Placed letter in mail today. 8900 Called pt. She states if fax will [...] and needs a letter faxed to work: [phone]. Just needs to state she had an appointment here today with Dr Schwartz @ 12:30. documented in this encounter Plan of Treatment Upcoming Encounters Date Type Department Care Team (Late st Contact Info) Description 02/21/2024 9:45 EDT Office Visit [facility] Adult Primary Care - [address] [phone] Carrington Calderon MD [address] [phone] 02/27/2024 8:30 EDT Telemedicine [facility] Sleep Program - [address] [phone] Dwight Colbert [address] [place] [phone] 02/29/2024 10:30 EDT Appointment [facility] Radiology Nuclear Medicine and PET - [address] [phone] 02/29/2024 14:30 EDT Appointment [facility] Radiology Nuclear Medicine and PET - [address] [phone] 03/01/2024 8:00 EDT Appointment [facility] Radiology Nuclear Medicine and PET [address] [phone] 03/01/2024 9:30 EDT Appointment [facility] Radiology Nuclear Medicine and PET [address] [phone] documented as of this encounter Visit Diagnoses Not on filedocumented in this encounter Care Teams Ballast Cleaning Machine Operator Relationship Specialty Start Date End Date None, Provider PCP - General 03/08/16 08/21/18 documented as of this encounter
--- OUTSIDE RECORDS SUMMARY | 2024-02-06 13:43 | XMS_ITS | Encounter Summary ---
Author Organization [facility] Address [address] [place] [address] Care Team Providers Care Esthetic Dermatologist Name Role Phone None, Provider Primary Care Provider Unavailabl e Reason for Visit * Reason Comments Eye Problem woke yesterday am wi th right eye lid swelling, worsening today, now with blurred vision. denies drainage. Encounter Details Date Type Department Care Team (Late st Contact Info) Description 07/28/2016 20:50 EST - 07/28/2016 22:56 EST Emergency [facility] Emergency Department - Main [address] [address] Fran Barbosa MD [address] [place] [address], Level 1 [place] [address] Emergency, MD Ekaterina Corneal abrasion, [...] complications-E11.9[ICD-10-CM] F17.210 Nicotine dependence, cigarettes, uncomplicated-F17.210[ICD-10-CM] Z79.84 longterm (current) use of oral hypoglycemic drugs-Z79.84[ICD-10-CM] Z88.6 [...] sent through Care Everywhere. * CORNEAL SCRATCHES (BULGARIAN) documented in this encounter Medications at Time [...] Notes * Ann Martínez RN - 07/28/2016 7941 EST Ordered for discharge. Aftercare instructions, follow [...] Info) Description 02/21/2024 9:45 EDT Office Visit [facility] Adult Primary Care - [address] [phone] Carrington Calderon MD [address] [place] [phone] 02/27/2024 8:30 EDT Telemedicine [facility] Sleep Program - [address] [phone] Dwight Colbert [address] [place] [phone] 02/29/2024 10:30 EDT Appointment [facility] Radiology Nuclear Medicine and PET - [address] [phone] 02/29/2024 14:30 EDT Appointment [facility] Radiology Nuclear Medicine and PET [address] [phone] 03/01/2024 8:00 EDT Appointment [facility] Radiology Nuclear Medicine and PET - [address] [phone] 03/01/2024 9:30 EDT Appointment [facility] Radiology Nuclear Medicine and PET - [address] [address] documented as of this encounter Visit Diagnoses [...] On Tue07/28/16 at 2245 2255 (Given - [facility] er: Ann Martínez RN) documented in this encounter Care Teams Esthetic Dermatologist Relationship Specialty Start Date End Date None, Provider PCP - General 03/08/16 08/21/18 documented as of this encounter
--- OUTSIDE RECORDS SUMMARY | 2024-02-06 13:43 | XMS_ITS | Encounter Summary ---
Author Organization [facility] Address [address] [place] [address] Care Team Providers Care Dry Box Operator Name Role Phone None, Provider Primary Care Provider Unavailabl e Reason for Visit * Reason Comments Cough Encounter Details Date Type Department Care Team (Latest Contact Info) Description 03/08/2016 14:28 EDT - 03/08/2016 16:55 EDT Hospital Encounter [facility] Urgent Care - [address] [address] Scar Marquez MD 0 [place] [phone] Unknown, ProviderMD Leukocytosis, unspecified type (Primary Dx); [...] - 03/08/2016 1654 EDT Report given to [place] rescue patient transported to [facility] ED for further evaluation IV infusing. * [...] the legs or lungs. She has used hozg-fki-wfsoazj Robitussin and Tylenol with little improvement. She [...] She did take a plane ride to [place] in January of this year. She has [...] 09/04/201502/18, 08/19. [facility] ??? Family history of rheumatoid arthritis 09/04/2015 Mother, pt with chronic back pain. Told arthritis in spine in teen yrs. ??? Type 2 diabetes mellitus 09/03/2015 Dx approx age 25. Controlled with lifestyle behaviors, wt loss. Had taken lantus in past 80u, Followed by endocrine in [facility]. Stopped few yrs ago until this past month. ??? Anxiety and depression 05/12/2010 Onset teen yrs. Treated with citalopram in approx 2012 - had SI, treated at [place]. Marijuana prn to help with stress/anxiety sx. [...] Neg Neg Ketones Trace (A) Neg Specific Vincent >=1.030 1.001 - 1.035 Blood 1+ (A) Neg pH 5.5 4.6 - 8.0 Protein Trace (A) Neg Urobilinogen 0.2 0.2 - 1.0 E.U./dl Nitrite Neg Neg Leuk Esterase Neg Neg Tech ID [id number] Radiology orders: None Imaging Results CHEST PA [...] preliminary report dictated by Dr. Madhuri Wolf, medical transcription radiology, and has not been finalized by an [...] preliminary report dictated by Dr. Madhuri Wolf, medical transcription radiology, and has not been finalized by an [...] preliminary report dictated by Dr. Madhuri Wolf, medical transcription radiology, and has not been finalized by an [...] other diagnoses. She is transferred to the [facility] emergency department now in stable condition. [...] Center Urgent Care, the patient's pain was 9 on a zero to ten scale. Condition at departure from the [facility] Urgent Care : Stable MDM Signed: Scar [...] Shea RN - 03/08/2016 1433 EDT Bed: [facility] Expected date: Expected time: Means of arrival: Comments: HOLD documented in this encounter Plan of Treatment Upcoming Encounters Date Type Department Care Team (Late st Contact Info) Description 02/21/2024 9:45 EDT Office Visit [facility] Adult Primary Care - [address] [phone] Carrington Calderon MD [address] [place] [phone] 02/27/2024 8:30 EDT Telemedicine [facility] Sleep Program - [address] [phone] Dwight Colbert [address] [place], [place] [phone] 02/29/2024 10:30 EDT Appointment [facility] Radiology Nuclear Medicine and PET - [address] [address] 02/29/2024 14:30 EDT Appointment [facility] Radiology Nuclear Medicine and PET - [address] [address] 03/01/2024 8:00 EDT Appointment [facility] Radiology Nuclear Medicine and PET - [address] [address] 03/01/2024 9:30 EDT Appointment [facility] Radiology Nuclear Medicine and PET [address] [address] documented as of this encounter Procedures Procedure [...] 9:47 EDT) 03/10/2016 9:47 EDT Scan 2 [employer] PROCEDURE/MINOR BRAULIO GICAL ORDERABLES * ED/URGENT CARE ADD-ON (03/09/2016 13:00 EDT) Tests to be added URINE TEST 03/09/2016 12:58 EDT [facility] Number for problems [id number] (URGENT CARE) 03/09/2016 12:58 EDT [facility] Comment:Performed at [facility], [place], [place] TOPOGRAPHY UNKNOWN / Unknown 03/09/2016 13:00 EDT 03/09/2016 13:07 EDT Scar Marquez MD HEMATOLOGY & PF4 O RDERABLES Performing Organization Address City/[facility] Co de Phone Number [facility] [address] [place] [address] * TEST, URINE (03/08/2016 16:25 EDT) Result- Test, Ur Neg Neg 03/09/2016 13:15 EDT [facility] Comment: NOTE: False negative results may occur in women who are beyond 5-8 weeks gestation. Diagnosis of should be based on a correlation of test results with typical clinical signs and symptoms. Performed at [facility], [place], [place] URINE / Unknown 03/08/2016 1 6:25 EDT 03/09/2016 13:06 EDT Scar Marquez MD URINALYSIS ORDERAB LES Performing Organization Address City/[facility]/ZIP Co de Phone Number [facility] [address] [place] [address] * (ABNORMAL) URINE MICROSCOPIC ONLY (03/08/2016 16:25 EDT) WBC, UA less than 1 0 - 5 /HPF 03/08/2016 17:24 EDT [facility] RBC, UA less than 1 0 - 5 /HPF 03/08/2016 17:24 [facility] Squam Epithel, UA Many(A) None seen /HPF 03/08/2016 17:24 [facility] Renal Epithel, UA None seen None seen /HPF 03/08/2016 17:24 EDT [facility] Bacteria, UA None seen None seen /HPF 03/08/2016 17:24 EDT [facility] Crystals, UA None seen /HPF 03/08/2016 17:24 [facility] Hyaline Casts, UA None seen /LPF 03/08/2016 17:24 [facility] UA Comment Microscopic results 03/08/2016 16:31 [facility] Comment: are unreliable on urines unrefrig >2hrs or refrig >8hrs. Mucus, UA Present 03/08/2016 17:24 T [facility] Comment:Performed at [facility] [place], [place] Urine specimen (specimen) URINE / Unknown 03/08/2016 16:25 EDT 03/08/2016 16:57 EDT Scar Marquez MD URINALYSIS ORDERAB LES [facility] [address] [place] [address] * (ABNORMAL) POCT URINE DIPSTICK (03/08/2016 16:25 EDT) Color DARK YELLOW 03/08/2016 16:27 T [facility] Clarity, UA Clear 03/08/2016 16:27 T [facility] Glucose 2+(A) Neg 03/08/2016 16:27 [facility] Bilirubin Neg Neg 03/08/2016 16:27 T [facility] Ketones Trace(A) Neg 03/08/2016 16:27 T [facility] Specific Vincent >=1.030 1.001 - 1.035 03/08/2016 16:27 EDT [facility] Blood 1+(A) Neg 03/08/2016 16:27 EDT [facility] pH 5.5 4.6 - 8.0 03/08/2016 16:27 EDT [facility] Protein Trace(A) Neg 03/08/2016 16:27 EDT [facility] Urobilinogen 0.2 0.2 - 1.0 E.U./dl 03/08/2016 16:27 EDT [facility] Nitrite Neg Neg 03/08/2016 16:27 EDT [facility] Leuk Esterase Neg Neg 03/08/2016 16:27 EDT [facility] emergency medical dispatcher ID [id number] 03/08/2016 16:27 EDT [facility] Comment:Test performed at [facility] in [facility] Urine specimen (specimen) URINE / Unknown 03/08/2016 16:25 EDT 03/08/2016 16:27 EDT Sacr Marquez MD POINT OF CARE TEST ORDERABLES [facility] [address] [place] [address] * EKG 12-LEAD (03/08/2016 16:14 EDT) 03/08/2016 16:1 4 EDT Narrative [facility] - 03/08/2016 16:24 EDT ? PC Site ? Test Date: ?2016-03-08 Pat Name: ? CRISTY WALKER ? Department: ?? [facility] ? Room: ? 06 Gender: ? F ?Taping Foreman: ?? : ?1985 ? Requested By: JOHNNY Alonzo Order Number: [id number] ? Reading MD: ?? SCAR MARQUEZ MD ? Measurements Intervals ?Garrett ? Rate: ? 124 ?P: ?50 MI: ? 130 ?QRS: ?27 QRSD: ? 92 [...] Date: 2016-03-08 Pat Name: CRISTY TALBOT Department: [facility] Room: Gender: F Taping Foreman: : 1985 Requested By: JOHNNY Alonzo Order Number: [id number] Reading MD: SCAR MARQUEZ MD Measurements Intervals Garrett Rate: 124 P: 50 MI: 130 QRS: 27 QRSD: 92 T: -14 [...] DEJESUS. Scar Marquez MD CARDIAC ECG ORDERA BANNERS [facility] * CHEST PA AND [...] preliminary report dictated by Dr. Madhuri Wolf, medical transcription radiology, and has not been finalized by an [...] preliminary report dictated by Dr. Madhuri Wolf, medical transcription radiology, and has not been finalized by an attending radiologist. I have personally reviewed the images and the above interpretation and agree with the findings. Scar Marquez MD IMG DIAGNOSTIC LAN GING ORDERABLES * D-DIMER (03/08/2016 15:10 EDT) D-Dimer <200 <230 ng/mL 03/08/2016 15:50 EDT [facility] Comment: CUTOFF VALUE FOR THE EXCLUSION OF DVT and PE: 230 ng/mL D-dimer units Any use of the age-adjusted cutoff value is a post-analytic modification of this FDA-approved test and is considered off-label use of the test result. [facility] laboratory does not have literature to support the validity of an age-adjusted cutoff for our specific assay. Performed at [place], [place] Blood specimen (specimen) BLOOD SPECIMEN / Unknown 03/08/2016 15:10 EDT 03/08/2016 15:38 EDT Scar Marquez MD HEMATOLOGY & PF4 O RDERABLES [facility] [address] [place] [address] * (ABNORMAL) COMPREHENSIVE METABOLIC PANEL (CMP) (03/08/2016 15:10 [facility]) Potassium 4.5 3.5 - 5.0 mEq/L 03/08/2016 16:07 [facility] Sodium 137 136 - 145 mEq/L 03/08/2016 16:07 [facility] Chloride 99 96 - 110 mEq/L 03/08/2016 16:07 [facility] CO2 27 24 - 32 mEq/L 03/08/2016 16:07 [facility] Total Alkaline Phosphatase 122 38 - 126 U/L 03/08/2016 16:07 [facility] Bilirubin, Total <0.5 <1.4 mg/dl 03/08/20 16 16:07 [facility] AST 16 15 - 46 U/L 03/08/2016 16:07 [facility] ALT 17 <53 U/L 03/08/2016 16:07 [facility] Albumin 3.9 3.4 - 4.9 g/dl 03/08/2016 16:07 [facility] Total Protein 7.1 6.3 - 8.2 g/dl 03/08/2016 16:07 [facility] Creatinine 0.50(L) 0.52 - 1.04 mg/dl 03/08/2016 16:07 [facility] GFR, Calculated 130 >60 ml/min/1.7 3m2 03/08/2016 16:07 [facility] Comment: eGFR calculated using CKD-EPI equation for non Americans. Multiply eGFR by 1.16 for Americans. BUN 9(L) 10 - 26 mg/dl 03/08/2016 16:07 [facility] Calcium 9.7 8.5 - 10.5 mg/dl 03/08/2016 16:07 [facility] Calculated Calcium 10.2 8.5 - 10.5 mg/dl 03/08/2016 16:07 [facility] Glucose, Serum 278(H) 70 - 100 mg/dl 03/08/2016 16:07 [facility] Fasting? Unknown 03/08/2016 15:39 [facility] Comment:Performed at [facility], [place], [place] Blood specimen (specimen) BLOOD SPECIMEN / Unknown 03/08/2016 15:10 EDT 03/08/2016 15:38 EDT Scar Marquez MD CHEMISTRY & BLOOD GAS ORDERABLES [facility] [address] [place] [address] * (ABNORMAL) HEMAGRAM AND DIFFERENTIAL (03/08/2016 15:10 EDT) WBC 21.39(H) 4.0 - 12.4 K/cmm 03/08/2016 15:50 [facility] RBC 4.87 3.86 - 5.04 M/cmm 03/08/2016 15:50 [facility] Hemoglobin 15.2 11.6 - 15.2 gm/dl 03/08/2016 15:50 [facility] HCT 42.5 34.9 - 44.4 % 03/08/2016 15:50 [facility] MCV 87 81 - 98 fl 03/08/2016 15:50 [facility] MCH 31.2 26.7 - 33.3 pg 03/08/2016 15:50 [facility] MCHC 35.8 32.1 - 35.9 gm/dl 03/08/2016 15:50 [facility] RDW-CV 12.4 11.7 - 14.6 % 03/08/2016 15:50 [facility] RDW-SD 39.1 37.6 - 50.3 fl 03/08/2016 15:50 [facility] PLT 407(H) 141 - 377 K/cmm 03/08/2016 15:50 [facility] MPV 10.2 9.5 - 12.7 fl 03/08/2016 15:50 [facility] Neutrophils 71.0 % 03/08/2016 16:07 [facility] % Bands 3.0 % 03/08/2016 16:07 [facility] Lymphocytes 19.0 % 03/08/2016 16:07 [facility] % Atyp Lymphs 1.0 % 03/08/2016 16:07 [facility] Monocytes 4.0 % 03/08/2016 16:07 [facility] Eosinophils 2.0 % 03/08/2016 16:07 [facility] ABS Neutrophils 15.19(H) 2.20 - 8.85 K/cmm 03/08/2016 16:07 [facility] ABS Bands 0.64 K/cmm 03/08/2016 16:07 [facility] ABS Lymphs 4.06(H) 1.09 - 3.30 K/cmm 03/08/2016 16:07 [facility] ABS Atyp Lymphs 0.21 K/cmm 6 16:07 [facility] ABS Monocytes 0.86(H) 0.1 - 0.8 K/cmm 03/08/2016 16:07 [facility] ABS Eosinophils 0.43 0.03 - 0.61 K/cmm 03/08/2016 16:07 [facility] Type of Diff: Manual 03/08/2016 16:07 [facility] Comment:Performed at [place], [place] Blood specimen (specimen) BLOOD SPECIMEN / Unknown 03/08/2016 15:10 EDT 03/08/2016 15:38 EDT Scar Marquez MD PACKAGES & DNA PRO BE ORDERABLES [facility] [address] [place] [address] * RAPID STREP (03/08/2016 14:40 EDT) Rapid Strep A Screen Neg 03/08/2016 15:09 [facility] Comment:Performed at [place], [place] Specimen of unknown material (specimen) TOPOGRAPHY UNKNOWN / Unknown 03/08/2016 14:40 EDT 03/08/2016 14:58 EDT Scar Marquez MD MICROBIOLOGY - GEN ERAL ORDERABLES Performing Organization Address City/[facility]/ZIP Co de Phone Number [facility] [address] [place] [address] * PHARYNGITIS CULTURE (03/08/2016 14:40 EDT) Result No group A beta streptococci isolated. Usual devin-pharyngeal candis. 03/10/2016 8:14 EDT [facility] Specimen of unknown material (specimen) ENTIRE THROAT / Unknown 03/08/2016 14:40 EDT 03/08/2016 19:07 EDT Comment:Specimen submitted o n a flocked swab. Scar Marquez MD MICROBIOLOGY - GEN ERAL ORDERABLES Performing Organization Address [facility] Co de Phone Number [facility] [address] [place] [address] documented in this encounter Visit Diagnoses Diagnosis [...] 03/08/2016 documented in this encounter Care Teams Dry Box Operator Relationship Specialty Start Date End Date None, Provider PCP - General 03/08/16 08/21/18 documented as of this encounter
--- OUTSIDE RECORDS SUMMARY | 2024-02-06 13:43 | XMS_ITS | Encounter Summary ---
Author Organization [facility] Address [address] [place] [address] Care Team Providers Care Paper Spooler Name Role Phone None, Provider Primary Care [...] 20:10 EDT - 09/28/2016 21:29 EDT Emergency [facility] Emergency Department - Main [address] [address] Benita Sol MD [address] [place] [address], Level 1 [place] [phone] Emergency, MD Ekaterina Acute bilateral low back [...] complications-E11.9[ICD-10-CM] F17.210 Nicotine dependence, cigarettes, uncomplicated-F17.210[ICD-10-CM] Z79.84 jail (current) use of oral hypoglycemic drugs-Z79.84[ICD-10-CM] Z88.6 Allergy status to analgesic agent status-Z88.6[ICD-10-CM] documented in this encounter Discharge Instructions * Discharge Instructions* Benita Sol MD - 09/28/2016 21:09 EDT Take Flexeril, one tablet before bed for muscle spasms/back pain as needed. * Attachments The following attachments cannot be sent through Care Everywhere. * LUMBAR PAIN: ACUTE: EXERCISES (BENINESE) documented in this encounter Medications at Time [...] [facility] Adult Primary Care - [address] [phone] Carrington Calderon MD [address] [phone] 02/27/2024 8:30 EDT Telemedicine [facility] Sleep Program - [address] [address] Dwight Colbert [address] [place] [phone] 02/29/2024 10:30 EDT Appointment [facility] Radiology Nuclear Medicine and PET - [address] [phone] 02/29/2024 14:30 EDT Appointment [facility] Radiology Nuclear Medicine and PET - [address] [phone] 03/01/2024 8:00 EDT Appointment [facility] Radiology Nuclear Medicine and PET - [address] [phone] 03/01/2024 9:30 EDT Appointment [facility] Radiology Nuclear Medicine and PET - [address] [address] documented as of this encounter Visit Diagnoses [...] back) documented in this encounter Care Teams Paper Spooler Relationship Specialty Start Date End Date None, Provider PCP - General 03/08/16 08/21/18 documented as of this encounter
--- OUTSIDE RECORDS SUMMARY | 2024-02-06 13:43 | XMS_ITS | Encounter Summary ---
Author Organization [facility] Address [address] [place] [address] Care Team Providers Care Share Dairy Farmer Name Role Phone Peytonjuan Nimisha Kelly CLEAN UP HELPER BANQUET Primary Care Provider [phone] Encounter Details Date Type Department Care Team (Late st Contact Info) Description 09/03/2015 Phlebotomy Only [facility] - [address] [address] Plasma Processing Technician, Outpatient Type 2 diabetes mellitus without complication [...] [facility] Adult Primary Care - [address] [phone] Carrington Calderon MD [address] [phone] 02/27/2024 8:30 EDT Telemedicine [facility] Sleep Program - [address] [phone] Dwight Colbert [address] [place] [address] 02/29/2024 10:30 EDT Appointment [facility] Radiology Nuclear Medicine and PET - [address] [address] 02/29/2024 14:30 EDT Appointment [facility] Radiology Nuclear Medicine and PET [address] [phone] 03/01/2024 8:00 EDT Appointment [facility] Radiology Nuclear Medicine and PET [address] [phone] 03/01/2024 9:30 EDT Appointment [facility] Radiology Nuclear Medicine and PET [address] [address] documented as of this encounter Procedures Procedure Name Priority Date/Time Associated Diagnosis Comments THYROID CASCADE Routine 09/03/2015 12:33 EDT Tachycardia Depression, unspecified depression type HEMOGLOBIN A1C Routine 09/03/2015 12:33 EDT Type 2 diabetes mellitus without complication ([facility] ([facility]) COMPREHENSIVE METABOLIC PANEL (CMP) Routine 09/03/2015 12:33 EDT Type 2 diabetes mellitus without complication ([facility]) ([facility]) documented in this encounter Results * (ABNORMAL) THYROID CASCADE (09/03/2015 12:33 EDT) TSH 0.48(L) 0.55 - 4.78 uIU/ml 09/03/2015 18:19 EDT [facility] Comment: TSH cascade is not recommended for patients in which pituitary or hypothalamic disorders are suspected. Blood specimen (specimen) BLOOD SPECIMEN / Unknown 09/03/2015 12:33 EDT 09/03/2015 13:37 EDT Nimisha Clifton NP CHEMISTRY & BLOOD GAS ORDERABLES Performing Organization Address City/State/[facility] Co de Phone Number [facility] [address] [place] [address] * HEMOGLOBIN A1C (09/03/2015 12:33 EDT) Pathologist [facility] Hemoglobin A1C 8.8 % 09/03/2015 14:56 [facility] Comment: Reference Range: <5.7% Normal 5.7-6.4% Increased risk for diabetes =>6.5% Diagnostic for diabetes (if confirmed) The A1c goal for non adults in general is <7%. The A1c goal for selected patients may be significantly lower than 7% if this can be achieved without significant hypoglycemia or other adverse effects of treatment. Est Avg Glucose 206 mg/dl 6 14:56 [facility] Comment: eAG represents the A1c result expressed as average glucose in mg/dl. Blood specimen (specimen) BLOOD SPECIMEN / Unknown 09/03/2015 12:33 EDT 09/03/2015 13:37 EDT Nimisha Clifton NP CHEMISTRY & BLOOD GAS ORDERABLES Performing Organization Address [facility] Co de Phone Number [facility] [address] [place] [address] * (ABNORMAL) COMPREHENSIVE METABOLIC PANEL (CMP) (09/03/2015 12:33 EDT) [facility] Potassium 4.1 3.5 - 5.0 mEq/L 09/03/2015 14:15 [facility] Sodium 141 136 - 145 mEq/L 09/03/2015 14:15 [facility] Chloride 101 96 - 110 mEq/L 09/03/2015 14:15 [facility] CO2 29 24 - 32 mEq/L 09/03/2015 14:15 [facility] Total Alkaline Phosphatase 84 38 - 126 U/L 09/03/2015 14:15 [facility] Bilirubin, Total <0.5 <1.4 mg/dl 09/03/19 16 14:15 [facility] AST 19 15 - 46 U/L 09/03/2015 14:15 [facility] ALT 33 <53 U/L 09/03/2015 14:15 [facility] Albumin 3.9 3.4 - 4.9 g/dl 09/03/2015 14:15 [facility] Total Protein 6.6 6.3 - 8.2 g/dl 09/03/2015 14:15 [facility] Creatinine 0.48(L) 0.52 - 1.04 mg/dl 09/03/2015 14:15 [facility] GFR, Calculated 132 >60 ml/min/1.7 3m2 09/03/2015 14:15 [facility] Comment: eGFR calculated using CKD-EPI equation for non Americans. Multiply eGFR by 1.16 for Americans. BUN 11 10 - 26 mg/dl 09/03/2015 14:15 [facility] Calcium 9.8 8.5 - 10.5 mg/dl 09/03/2015 14:15 [facility] Calculated Calcium 10.3 8.5 - 10.5 mg/dl 09/03/2015 14:15 [facility] Glucose, Serum 205(H) 70 - 100 mg/dl 09/03/2015 14:15 [facility] Fasting? No 09/03/2015 12:23 [facility] Blood specimen (specimen) BLOOD SPECIMEN / Unknown 09/03/2015 12:33 EDT 09/03/2015 13:37 EDT Nimisha Clifton NP CHEMISTRY & BLOOD GAS ORDERABLES [facility] [address] [place] [address] documented in this encounter Visit Diagnoses Diagnosis Type 2 diabetes mellitus without complication ([facility]) Type II or unspecified type diabetes mellitus without mention of complication, not stated as uncontrolled Tachycardia Tachycardia, unspecified Depression, unspecified depression type documented in this encounter Care Teams Share Dairy Farmer Relationship Specialty Start Date End Date Nimisha Clifton NP 1 [facility] Level 1 [place] [address] PCP - General 08/28/15 03/07/16 documented as of this encounter
--- OUTSIDE RECORDS SUMMARY | 2024-02-06 13:43 | XMS_ITS | Encounter Summary ---
Author Organization [facility] Address [address] [place] [address] Care Team Providers Care Strip Presser Name Role Phone None, Provider Primary Care Provider Unavailabl e Reason for Visit * Reason Comments Abscess Encounter Details Date Type Department Care Team (Latest Contact Info) Description 07/15/2016 11:37 EST - 07/15/2016 14:[address] 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 Keep [...] sent through Care Everywhere. * PERIRECTAL ABSCESS (BAHRAINI) documented in this encounter Medications at Time [...] will look into following up at the [facility]. Certainly follow up acutely as needed otherwise. [...] UA Clear Final Bilirubin Neg Final Specific Hollis 1.015 Final pH 5.5 Final Urobilinogen 0.2 Final Nitrite Neg Final Tech ID [id number] Final POCT GLUCOSE - Normal Glucose, POC [...] a primary care doctor; recommenda tion for [facility] was made which the patient was amenable to. Plan: Perirectal abscess - s/p I&D with no purulence expressed - CBC and Diff Diabetes, type 2 - Hemoglobin A1C - BMP - metformin 500 mg BID Follow-up with [facility] DISPOSITION: Discharged The patient's pain was managed to an adequate level weighing risk vs. benefit of further medications. Upon departure from the Emergency Department, the patient's pain was 2 on a zero to ten scale. Condition at departure from the Emergency Department: Stable PCP: Provider None [facility] 07/15/2016 14:10 No flowsheet data found. Callum Vicente MD, 07/15/2016 14:35 Family Medicine PGY 1, Page #[phone] documented in this encounter Plan of Treatment Upcoming Encounters Date Type Department Care Team (Late st Contact Info) Description 02/21/2024 9:[address] [facility] Adult Primary Care - [address] [address] Carrington Calderon MD [address] [phone] 02/27/2024 8:[address] [facility] Sleep Program - [address] [phone] Dwight Colbert [address] [place] [phone] 02/29/2024 10:30 EDT Appointment [facility] Radiology Nuclear Medicine and PET - [address] [address] 02/29/2024 14:30 EDT Appointment [facility] Radiology Nuclear Medicine and PET - [address] [address] 03/01/2024 8:00 EDT Appointment [facility] Radiology Nuclear Medicine and PET - [address] [address] 03/01/2024 9:30 EDT Appointment [facility] Radiology Nuclear Medicine and PET - [address] [address] documented as of this encounter Procedures Procedure Name Priority Date/Time Associated Diagnosis Comments HEMOGLOBIN A1C STAT 07/15/2016 13:18 EST Type 2 diabetes mellitus with complication, unspecified predatory animal exterminator insulin use status ([facility] COMPLETE BLOOD COUNT AND DIFFERENTIAL STAT 07/15/2016 13:11 EST Type 2 diabetes mellitus with complication, unspecified retirement insulin use status ([facility] BASIC METABOLIC PANEL (BMP) STAT 07/15/2016 13:11 EST Nausea and vomiting, intractability of vomiting not specified, unspecified vomiting type POCT GLUCOSE, INTERFACED STAT 07/15/2016 12:28 EST Type 2 diabetes mellitus with complication, unspecified retirement insulin use status ([facility] URINE SEDIMENT (MICRO) WITHOUT REFLEX TO CULTURE [...] EST) Hemoglobin A1C 11.2 % 07/16/2016 11:24 [facility] Comment: Reference Range: <5.7% Normal 5.7-6.4% Increased risk for diabetes =>6.5% Diagnostic for diabetes (if confirmed) The A1c goal for non adults in general is <7%. The A1c goal for selected patients may be significantly lower than 7% if this can be achieved without significant hypoglycemia or other adverse effects of treatment. Est Avg Glucose 275 mg/dl 7 11:24 [facility] Comment: eAG represents the A1c result expressed as average glucose in mg/dl. Blood specimen (specimen) BLOOD SPECIMEN / Unknown 07/15/2016 13:18 EST 07/15/2016 13:28 EST Callum Vicente MD MPH CHEMISTRY & BLOOD GAS ORDERABLES Performing Organization Address City/State/[facility] Co de Phone Number [facility] [address] [place] [address] * (ABNORMAL) HEMAGRAM AND DIFFERENTIAL (07/15/2016 13:11 EST) WBC 12.30 4.0 - 12.4 K/cmm 07/15/2016 13:30 [facility] RBC 4.88 3.86 - 5.04 M/cmm 07/15/2016 13:30 [facility] Hemoglobin 15.2 11.6 - 15.2 gm/dl 07/15/2016 13:30 [facility] HCT 42.1 34.9 - 44.4 % 07/15/2016 13:30 [facility] MCV 86 81 - 98 fl 07/15/2016 13:30 [facility] MCH 31.1 26.7 - 33.3 pg 07/15/2016 13:30 [facility] MCHC 36.1(H) 32.1 - 35.9 gm/dl 07/15/2016 13:30 [facility] RDW-CV 12.5 11.7 - 14.6 % 07/15/2016 13:30 [facility] RDW-SD 38.5 37.6 - 50.3 fl 07/15/2016 13:30 [facility] PLT 331 141 - 377 K/cmm 07/15/2016 13:30 [facility] MPV 9.5 9.5 - 12.7 fl 07/15/2016 13:30 [facility] % Neutrophils 72.6 % 07/15/2016 13:30 [facility] % Lymphocytes 18.7 % 07/15/2016 13:30 [facility] % Monocytes 7.8 % 07/15/2016 13:30 [facility] % Eosinophils 0.7 % 07/15/2016 13:30 [facility] % Basophils 0.2 % 07/15/2016 13:30 [facility] ABS Neutrophils 8.93(H) 2.20 - 8.85 K/cmm 07/15/2016 13:30 [facility] ABS Lymphs 2.30 1.09 - 3.30 K/cmm 07/15/2016 13:30 [facility] ABS Monocytes 0.96(H) 0.1 - 0.8 K/cmm 07/15/2016 13:30 [facility] ABS Eosinophils 0.09 0.03 - 0.61 K/cmm 07/15/2016 13:30 [facility] ABS Basophils 0.02 0.01 - 0.11 K/cmm 07/15/2016 13:30 [facility] Type of Diff: Automated 07/15/2016 13:30 [facility] Comment:Performed at [place], [place] Blood specimen (specimen) BLOOD SPECIMEN / Unknown 07/15/2016 13:11 EST 07/15/2016 13:27 EST Callum Vicente MD MPH PACKAGES & DNA WA OBE ORDERABLES [facility] [address] [place] [address] * (ABNORMAL) BASIC METABOLIC PANEL (07/15/2016 13:11 EST) Sodium 138 136 - 145 mEq/L 07/15/2016 14:01 [facility] Potassium 4.2 3.5 - 5.0 mEq/L 07/15/2016 14:01 [facility] Chloride 101 96 - 110 mEq/L 07/15/2016 14:01 [facility] CO2 27 22 - 32 mEq/L 07/15/2016 14:01 [facility] Comment:Note new reference r masoud 03/23/16 BUN 9(L) 10 - 26 mg/dl 07/15/2016 14:01 [facility] Creatinine 0.40(L) 0.52 - 1.04 mg/dl 07/15/2016 14:01 [facility] GFR, Calculated 139 >60 ml/min/1.7 3m2 07/15/2016 14:01 [facility] Comment: eGFR calculated using CKD-EPI equation for non Americans. Multiply eGFR by 1.16 for Americans. Calcium 9.2 8.5 - 10.5 mg/dl 07/15/2016 14:01 [facility] Calculated Calcium 9.4 8.5 - 10.5 mg/dl 07/15/2016 14:01 [facility] Comment: Note new formula for calculation in use 03/10/2016 Glucose, Serum 246(H) 70 - 100 mg/dl 07/15/2016 14:01 [facility] Fasting? Unknown 07/15/2016 13:27 [facility] Comment:Performed at [place], [place] Blood specimen (specimen) BLOOD SPECIMEN / Unknown 07/15/2016 13:11 EST 07/15/2016 13:27 EST Callum Vicente MD MPH CHEMISTRY & BLOOD GAS ORDERABLES [facility] [address] [place] [address] * (ABNORMAL) POCT GLUCOSE (07/15/2016 12:28 EST) Glucose, POC 221(A) 70 - 100 mg/dL [facility] Blood specimen (specimen) 07/15/2016 12:28 EST Callum Vicente MD MPH POINT OF CARE [place] T ORDERABLES Performing Organization Address City/[facility]/ZIP Co de Phone Number [facility] [address] [place] [address] * (ABNORMAL) URINALYSIS MICROSCOPIC ONLY (07/15/2016 12:06 EST) WBC, UA less than 1 0 - 5 /HPF 07/15/2016 12:43 EST [facility] RBC, UA 1 to 5 0 - 5 /HPF 07/15/2016 12:43 [facility] Squam Epithel, UA Many(A) None seen /HPF 07/15/2016 12:43 [facility] Renal Epithel, UA None seen None seen /HPF 07/15/2016 12:43 [facility] Bacteria, UA Rare(A) None seen /HPF 07/15/2016 12:43 [facility] Crystals, UA None seen /HPF 07/15/2016 12:43 [facility] Hyaline Casts, UA None seen /LPF 07/15/2016 12:43 [facility] UA Comment Microscopic results 07/15/2016 12:13 [facility] Comment: are unreliable on urines unrefrig >2hrs or refrig >8hrs. Mucus, UA Present 07/15/2016 12:43 [facility] Comment:Performed at [facility], [place], [place] Urine specimen (specimen) URINE / Unknown 07/15/2016 12:06 EST 07/15/2016 12:17 EST Moy Marquez MD URINALYSIS ORDERAB LES [facility] [address] [place] [address] * TEST, URINE (07/15/2016 12:06 EST) Result- Test, Ur Neg Neg 07/15/2016 12:40 [facility] Comment: NOTE: False negative results may occur in women who are beyond 5-8 weeks gestation. Diagnosis of should be based on a correlation of test results with typical clinical signs and symptoms. Performed at [facility], [place], [place] Urine specimen (specimen) URINE / Unknown 07/15/2016 12:06 EST 07/15/2016 12:16 EST Moy Marquez MD URINALYSIS ORDERAB LES [facility] [address] [place] [address] * (ABNORMAL) POCT URINE DIPSTICK (07/15/2016 12:06 EST) Color YELLOW 07/15/2016 12:11 [facility] Clarity, UA Clear 07/15/2016 12:11 [facility] Glucose 2+(A) Neg 07/15/2016 12:11 [facility] Bilirubin Neg Neg 07/15/2016 12:11 [facility] Ketones 1+(A) Neg 07/15/2016 12:11 [facility] Specific Hollis 1.015 1.001 - 1.035 07/15/2016 12:11 [facility] Blood 3+(A) Neg 07/15/2016 12:11 [facility] pH 5.5 4.6 - 8.0 07/15/2016 12:11 [facility] Protein Trace(A) Neg 07/15/2016 12:11 [facility] Urobilinogen 0.2 0.2 - 1.0 E.U./dl 07/15/2016 12:11 [facility] Nitrite Neg Neg 07/15/2016 12:11 [facility] Leuk Esterase Trace(A) Neg 07/15/2016 12:11 [facility] comfort filler ID [id number] 07/15/2016 12:11 [facility] Comment:Test performed at [facility] Urine specimen (specimen) URINE / Unknown 07/15/2016 12:06 EST 07/15/2016 12:11 EST Moy Marquez MD POINT OF CARE TEST ORDERABLES [facility] [address] [place] [address] documented in this encounter Visit Diagnoses Diagnosis Perianal abscess- Primary Abscess of anal and rectal regions Nausea and vomiting, intractability of vomiting not specified, unspecified vomiting type Type 2 diabetes mellitus with complication, unspecified 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
--- OUTSIDE RECORDS SUMMARY | 2024-02-06 13:43 | XMS_ITS | Encounter Summary ---
Author Organization [facility] Address [address] [place] [address] Care Team Providers Care Tax Staff Accountant Name Role Phone None, Provider Primary Care Provider Unavailabl e Encounter Details Date Type Department Care Team (Late st Contact Info) Description 07/23/2015 10:49 EST - 07/23/2015 10:50 EST Hospital Encounter [address] [address] Robyn Bautista MD [address] [place] [phone] Discharge Disposition: Home or Self Care Social [...] [facility] Adult Primary Care - [address] [address] Carrington Calderon MD [address] [facility] 1 [place] [address] 02/27/2024 8:30 EDT Telemedicine [facility] Sleep Program - [address] [phone] Dwight Colbert [address] [place] [phone] 02/29/2024 10:30 EDT Appointment [facility] Radiology Nuclear Medicine and PET - [address] [phone] 02/29/2024 14:30 EDT Appointment [facility] Radiology Nuclear Medicine and PET [address] [phone] 03/01/2024 8:00 EDT Appointment [facility] Radiology Nuclear Medicine and PET [address] [phone] 03/01/2024 9:30 EDT Appointment [facility] Radiology Nuclear Medicine and PET [address] [phone] documented as of this encounter Visit Diagnoses Not on filedocumented in this encounter Care Teams Tax Staff Accountant Relationship Specialty Start Date End Date None, Provider PCP - General 01/01/15 08/27/15 documented as of this encounter
--- OUTSIDE RECORDS SUMMARY | 2024-02-06 13:43 | XMS_ITS | Encounter Summary ---
Author Organization [facility] Address [address] [place] [address] Care Team Providers Care Nutrition Aides Teacher Name Role Phone Nimisha Clifton TEAM DRIVER Primary Care Provider [phone] Encounter Details Date Type Department Care Team (Late st Contact Info) Description 09/03/2015 Results Only [facility] Adult Primary Care - [address] [phone] Nimisha Clifton, GUSTAVO [address] [phone] Social History Tobacco Use Types Packs/Day Years [...] [facility] Adult Primary Care [address] [phone] Carrington Calderon MD [address] [phone] 02/27/2024 8:30 EDT Telemedicine [facility] Sleep Program - [address] [place] [address] Dwight Colbert [address] [place], [place] [phone] 02/29/2024 10:[address] [facility] Radiology Nuclear Medicine and [address] [phone] 02/29/2024 14:[address] [facility] Radiology Nuclear Medicine and PET [address] [phone] 03/01/2024 8:[address] [facility] Radiology Nuclear Medicine and [address] [phone] 03/01/2024 9:[address] [facility] Radiology Nuclear [facility] and [address] [address] documented as of this encounter Procedures Procedure Name Priority Date/Time Associated Diagnosis Comments T4, FREE REFLEX Routine 09/03/2015 12:33 EDT documented in this encounter Results * T4, FREE REFLEX (09/03/2015 12:33 EDT) Free T4 1.3 0.8 - 1.8 ng/dl 09/03/2015 18:43 EDT [facility] BLOOD SPECIMEN / Unknown 09/03/2015 12:33 EDT 09/03/2015 13:37 EDT Nimisha Clifton NP CHEMISTRY & BLOOD GAS ORDERABLES [facility] [address] [place] [address] documented in this encounter Visit Diagnoses Not on filedocumented in this encounter Care Teams Nutrition Aides Teacher Relationship Specialty Start Date End Date Nimisha Clifton NP 1 [facility] Level 1 [place] [phone] PCP - General 08/28/15 03/07/16 documented as of this encounter
--- OUTSIDE RECORDS SUMMARY | 2024-02-06 13:43 | XMS_ITS | Encounter Summary ---
Author Organization [facility] Address [address] [place] [address] Care Team Providers Care Pupil Personnel Worker Name Role Phone None, Provider Primary Care Provider Unavailabl e Reason for Visit * Reason Onset Date Comments Eye Problem 07/29/2016 Encounter Details Date Type Department Care Team (Late st Contact Info) Description 07/29/[address] [facility] Ophthalmology - [address] [phone] Unknown, Provider, Eye Problem Social History Tobacco [...] he will see pt tomorrow. Catherine Alonzo ([facility]) calling pt to schedule. * Telephone [...] to you in the next two hours? [phone], can leavea message (VERIFY THE PHONE NUMBERS REGARDLESS OF WHAT IS IN THE SYSTEM.) (Please remember to ask the MD what he/she needs from the paper chart.) * Telephone Encounter - Catherine Donald - 07/29/2016 4780 EST Pt was seen at ed. documented in this encounter Plan of Treatment Upcoming Encounters Date Type Department Care Team (Late st Contact Info) Description 02/21/2024 9:[address] [facility] Adult Primary Care - [address] [address] Carrington Calderon MD 1 [facility] 1 [place] [address] 02/27/2024 8:[address] [facility] Sleep Program - [address] [address] Colbert Dwight [address] [place] [phone] 02/29/2024 10:30 ED[facility] [address] [phone] 02/29/2024 14:30 EDT Appointment [facility] Radiology Nuclear Medicine and PET [address] [phone] 03/01/2024 8:00 EDT Appointment [facility] Radiology Nuclear Medicine and PET [address] [phone] 03/01/2024 9:30 EDT Appointment [facility] Radiology Nuclear Medicine and PET [address] [phone] documented as of this encounter Visit Diagnoses Not on filedocumented in this encounter Care Teams Pupil Personnel Worker Relationship Specialty Start Date End Date None, Provider PCP - General 03/08/16 08/21/18 documented as of this encounter
--- OUTSIDE RECORDS SUMMARY | 2024-02-06 13:43 | XMS_ITS | Encounter Summary ---
Author Organization [facility] Address [address] [place] [address] Care Team Providers Care It Sales Consultant Name Role Phone None, Provider Primary Care Provider Unavailabl e Encounter Details Date Type Department Care Team (Late st Contact Info) Description 07/23/2015 Results Only [facility] [phone] Robyn Bautista MD [address] [place] [phone] Social History Tobacco Use Types Packs/Day Years [...] [facility] Adult Primary Care - [address] [phone] Carrington Calderon MD [address] [phone] 02/27/2024 8:30 EDT Telemedicine [facility] Sleep Program - [address] [phone] Dwight Colbert [address] [place] [address] 02/29/2024 10:30 EDT [facility]ment [facility] Nuclear Medicine and PET - [address] [address] 02/29/2024 14:30 EDT Appointment [facility] Radiology Nuclear Medicine and PET [address] [id number] 03/01/2024 8:00 EDT Appointment [facility] Radiology Nuclear Medicine and PET [address] [phone] 03/01/2024 9:30 EDT Appointment [facility] Radiology Nuclear Medicine and PET [address] [phone] documented as of this encounter Procedures Procedure Name Priority Date/Time Associated Diagnosis Comments PROGESTERONE Routine 07/23/2015 8:56 EST QUANT BETA HCG, Routine 07/23/2015 8:56 EST documented in this encounter Results * PROGESTERONE (07/23/2015 8:56 EST) Progesterone 9.5 ng/ml 07/23/2015 11:47 EST [facility] Comment: NON- FEMALES: follicular phase: ??<0.2-1.4 ng/mL luteal phase: 3.3-25.6 ng/ml postmenopausal: ??<0.2-0.7 ng/mL FEMALES: first trimester: 11.2-90.0 ng/ml second trimester: 25.6-89.4 ng/ml third trimester: 48.4-422.5 ng/ml ECTOPIC PREGNANCIES: consult pathologist BLOOD SPECIMEN / Unknown 07/23/2015 8:56 EST 07/23/2015 10:06 EST Robyn Bautista MD CHEMISTRY & BL OOD GAS ORDERABLES [facility] [address] [place] [address] * (ABNORMAL) HCG FOR (07/23/2015 8:56 EST) Quant Beta HCG, Preg 2,093(H) <5 mIU/ml 07/23/2015 10:55 EST [facility] Comment: Reference Range: Negative = <5 Indeterminate = 5-25 recommend repeat in 48 hours. Positive = >25 BLOOD SPECIMEN / Unknown 07/23/2015 8:56 EST 07/23/2015 10:06 EST Robyn Bautista MD CHEMISTRY & BL OOD GAS ORDERABLES [facility] [address] [place] [address] documented in this encounter Visit Diagnoses Not on filedocumented in this encounter Care Teams It Sales Consultant Relationship Specialty Start Date End Date None, Provider PCP - General 01/01/15 08/27/15 documented as of this encounter
--- OUTSIDE RECORDS SUMMARY | 2024-02-06 13:43 | XMS_ITS | Encounter Summary ---
Author Organization [facility] Address [address] [place] [address] Care Team Providers Care Psychiatry Teacher Name Role Phone Nimisha Clifton Kelly SOAKING PIT OPERATOR Primary Care Provider [phone] Reason for Visit * Reason Comments Miscarriage Patient states.10 w eeks and last Tuesday found out no heart beat thus she states, I am having a miscarriage Vaginal bleeding X 1 weeks Lots of cramps Encounter Details Date Type Department Care Team (Late st Contact Info) Description 08/31/2015 14:05 EDT - 08/31/2015 20:[address] [facility] Emergency Department - [address] [phone] Sonal Rand, PA-C [address] [phone] Danny Victoria MD Macnee, Lauren K, PA-Shiva 111 [facility], Level 1 [place] [address] Emergency, MD Ekaterina Miscarriage (Primary [...] Sonal Rand - 08/31/2015 19:32 EDT Call SPRAYING MACHINE OPERATOR clinic tomorrow to arrange for follow-up in the next couple of days as instructed by SPRAYING MACHINE OPERATOR resident Percocet can be used for significant pain but should be used sparingly. Consider using [id number] stool softener if using this medication to [...] 8/10 and sharp. Shewas previously [facility] OBGYN clinic and underwent a TVUS [...] D&C. The patient was transfer to a GENERALIST bed and was reportedto pass a large [...] Grandmother ??? Diabetes Paternal Grandfather OB History GENERALIST History OB History Para Term AB SAB [...] identified. These findings are consistent with demise. SPRAYING MACHINE OPERATOR consultation and followup with serial beta hCG [...] and advised her to follow up with GENERALIST tomorrow. She verbalizes understanding. * Homa Goldsmith [...] history of DM, miscarriage, migraines who presents [facility] ED 10 weeks with a 6 day history of a known pole with no cardiac activity. She underwent suction aspiration for a prior miscarriage in the ED February 2015. The patient arrives [facility] ED with severe pelvic pain, [...] Heart rate is abnormal. Negative for murmur. [place] Protocol: risks and benefits discussed consent given [...] 10 weeks who gets her care at [facility] and had 10 week ultrasound 6 days [...] known miscarriage at 10 weeks Discussed with SPRAYING MACHINE OPERATOR who recommend repeat ultrasound Ultrasound shows evidence of incomplete Labs unremarkable. Discussed with SPRAYING MACHINE OPERATOR resident at 6:15, they will perform a suction D&C here under conscious sedation 7:15 PM-procedure is completed, sounds as if patient may have aborted large amount of material justprior to suction procedure. Uncomplicated procedure otherwise She is now recovering from ketamine sedation Remains tachycardic and will continue with IV hydration, now on her third liter. Given Compazine for vomiting Discussed follow-up with SPRAYING MACHINE OPERATOR resident, she is to contact SPRAYING MACHINE OPERATOR clinic tomorrow morning and alexis arrange for [...] the Emergency Department: Stable PCP: Nimisha Clifton [facility] Danny Victoria was consulted and agrees with treatment plan. 08/31/2015 18:14 No flowsheet data found. * Homa Goldsmith, RN - 08/31/2015 2675 EDT OB in with pt. * Homa [...] [facility] Adult Primary Care - [place] 1 [place], [place] [address] Carrington Calderon MD 1 [facility] Level 1 [place] [phone] 02/27/2024 8:[address] [facility] Sleep Program - [address] [place] [address] [address] [place] [address] 02/29/2024 10:30 EDT Appointment [facility] Radiology Nuclear Medicine and PET - [address] [address] 02/29/2024 14:30 EDT Appointment [facility] Radiology Nuclear Medicine and PET [address] [phone] 03/01/2024 8:00 EDT Appointment [facility] Radiology Nuclear Medicine and PET - [address] [phone] 03/01/2024 9:30 EDT Appointment [facility] Radiology Nuclear Medicine and PET [address] [address] documented as of this encounter Procedures Procedure [...] ED SEDATION PROCEDURE (09/01/2015 0:25 EDT) Narrative [facility] EKG - 09/01/2015 0:25 EDT Danny [...] rate is abnormal. ??Negative for murmur. ? [place] Protocol: risks and benefits discussed consent given [...] PROCEDURE/MINOR BRAULIO GICAL ORDERABLES Performing Organization Address City/[facility]/ZIP Co de Phone Number [facility] EKG * PREPARE RED BLOOD CELLS (08/31/2015 21:22 EDT) Product Code [id number] [facility] BLOOD BANK Comment:E0336 -1 RED BLOOD CELLS, Leukocytes Reduced Donor Number [id number] U [facility] BLOOD BANK Unit ABO B [facility] BLOOD BANK Unit Rh NEG [facility] BLOOD BANK Unit Status RE^Released From Crossmatch [facility] BLOOD BANK Product Expiration Date [id number] [facility] BLOOD BANK Unit Blood Type Code 1700 [facility] BLOOD BANK Coding System [id number] [facility] BLOOD BANK 08/31/2015 21:2 2 EDT Felicita Espinal MD BLOOD BANK ORDERABL ES Performing Organization Address City/[facility]/ZIP Co de Phone Number [facility] BLOOD BANK * ANTIBODY IDENTIFICATION (08/31/2015 19:17 EDT) Antibody Identification Anti-D; patient recd RhIg [facility] BLOOD BANK 08/31/2015 19:1 7 EDT Felicita Espinal MD BLOOD BANK TESTS Performing Organization Address City/[facility]/ZIP Co de Phone Number [facility] BLOOD BANK * RAD US OB [...] identified. These findings are consistent with demise. SPRAYING MACHINE OPERATOR consultation and followup with serial beta hCG [...] identified. These findings are consistent with demise. SPRAYING MACHINE OPERATOR consultation and followup with serial beta hCG is suggested. These findings were discussed with SONAL DAWSON by Dr. Zac Benjamin on 08/31/2015 5:30 PM. I have personally reviewed the images and the above interpretation and agree with the findings. Sonal Rand PA-C IM US ORDERABLES * TYPE AND SCREEN (08/31/2015 16:20 EDT) ABO B [facility] Rh Factor Negative [facility] BLOOD BANK Antibody Screen Positive [facility] BLOOD BANK Specimen Expires: 09/03/2015 @ 23:59 [facility] BLOOD BANK Blood specimen (specimen) 08/31/2015 16:20 EDT Felicita Espianl MD BLOOD BANK TESTS [facility] BLOOD BANK * (ABNORMAL) BASIC METABOLIC PANEL (08/31/2015 14:45 EDT) Sodium 140 136 - 145 mEq/L 08/31/2015 15:17 [facility] Potassium 4.1 3.5 - 5.0 mEq/L 08/31/2015 15:17 [facility] Chloride 106 96 - 110 mEq/L 08/31/2015 15:17 [facility] CO2 24 24 - 32 mEq/L 08/31/2015 15:17 [facility] BUN 9(L) 10 - 26 mg/dl 08/31/2015 15:17 [facility] Creatinine 0.41(L) 0.52 - 1.04 mg/dl 08/31/2015 15:17 [facility] GFR, Calculated 139 >60 ml/min/1.7 3m2 08/31/2015 15:17 [facility] Comment: eGFR calculated using CKD-EPI equation for non Americans. Multiply eGFR by 1.16 for Americans. Calcium 9.7 8.5 - 10.5 mg/dl 08/31/2015 15:17 [facility] Calculated Calcium 10.1 8.5 - 10.5 mg/dl 08/31/2015 15:17 [facility] Glucose, Serum 199(H) 70 - 100 mg/dl 08/31/2015 15:17 [facility] Fasting? Unknown 08/31/2015 15:02 [facility] Blood specimen (specimen) BLOOD SPECIMEN / Unknown 08/31/2015 14:45 EDT 08/31/2015 15:02 EDT Sonal Rand PA-C CHEMISTRY & BLOOD G ORDERABLES [facility] [address] [place] [address] * (ABNORMAL) HEMAGRAM AND DIFFERENTIAL (08/31/2015 14:45 EDT) WBC 18.76(H) 4.0 - 12.4 K/cmm 08/31/2015 15:09 [facility] RBC 4.70 3.86 - 5.04 M/cmm 08/31/2015 15:09 [facility] Hemoglobin 14.3 11.6 - 15.2 gm/dl 08/31/2015 15:09 [facility] HCT 40.4 34.9 - 44.4 % 08/31/2015 15:09 [facility] MCV 86 81 - 98 fl 08/31/2015 15:09 [facility] MCH 30.4 26.7 - 33.3 pg 08/31/2015 15:09 [facility] MCHC 35.4 32.1 - 35.9 gm/dl 08/31/2015 15:09 [facility] RDW-CV 12.2 11.7 - 14.6 % 08/31/2015 15:09 [facility] RDW-SD 38.8 37.6 - 50.3 fl 08/31/2015 15:09 [facility] PLT 421(H) 141 - 377 K/cmm 08/31/2015 15:09 [facility] MPV 9.5 9.5 - 12.7 fl 08/31/2015 15:09 [facility] % Neutrophils 70.6 % 08/31/2015 15:09 [facility] % Lymphocytes 19.8 % 08/31/2015 15:09 [facility] % Monocytes 6.1 % 08/31/2015 15:09 [facility] % Eosinophils 2.6 % 08/31/2015 15:09 [facility] % Basophils 0.4 % 08/31/2015 15:09 [facility] % Immature Grans 0.5 % 08/31/2015 15:09 [facility] ABS Neutrophils 13.26(H) 2.20 - 8.85 K/cmm 08/31/2015 15:09 EDT [facility] ABS Lymphs 3.71(H) 1.09 - 3.30 K/[facility] 08/31/2015 15:09 EDT [facility] ABS Monocytes 1.14(H) 0.1 - 0.8 K/[facility] 08/31/2015 15:09 EDT [facility] ABS Eosinophils 0.48 0.03 - 0.61 K/[facility] 08/31/2015 15:09 EDT [facility] ABS Basophils 0.08 0.01 - 0.11 K/[facility] 08/31/2015 15:09 [facility] ABS Immature Grans 0.09(H) 0 - 0.06 K/[facility] 08/31/2015 15:09 [facility] Type of Diff: Automated 08/31/2015 15:09 [facility] Blood specimen (specimen) BLOOD SPECIMEN / Unknown 08/31/2015 14:45 EDT 08/31/2015 15:02 EDT Sonal Rand PA-C PACKAGES & DNA PROB E ORDERABLES [facility] [address] [place] [address] documented in this encounter Visit Diagnoses Diagnosis [...] Dispensed Refills Start Date End Date PROGESTERONE [facility] by misc (non-drug; combo route) route. 03/08/2016 [...] 08/31/2015 documented in this encounter Care Teams Psychiatry Teacher Relationship Specialty Start Date End Date Nimisha Clifton NP 1 [facility] 1 [place] [address] PCP - General 08/28/15 03/07/16 documented as of this encounter
--- OUTSIDE RECORDS SUMMARY | 2024-02-06 13:43 | XMS_ITS | Encounter Summary ---
Author Organization [facility] Address [address] [place] [address] Care Team Providers Care Billet Heater Operator Name Role Phone None, Provider Primary Care Provider Unavailabl e Reason for Visit * Reason Onset Date Comments Follow-up 07/20/2016 Results 07/20/2016 Encounter Details Date Type Department Care Team (Late st Contact Info) Description 07/20/2016 Telephone [facility] - [address] [phone] Moy Marquez MD 0 [place] [phone] Follow-up; Results Social History Tobacco Use Types [...] Encounter - Moy Marquez MD - 07/24/2016 2608 EST Called and spoke to patient follow up with recent visit. She notes that cyst has improved. I discussed that her hemoglobin A1c is quite elevated at 11.2, indicating that she does have poorlycontrolled diabetes. 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 She will likely need further agents. She does have a follow-up appointment in three days with the [facility] to establish care. I strongly encouraged [...] Visit [facility] Adult Primary Care - [address] [phone] Carrington Calderon MD [address] [phone] 02/27/2024 8:30 EDT Telemedicine [facility] Sleep Program - [address] [phone] Dwight Colbert [address] [place] [phone] 02/29/2024 10:30 EDT Appointment [facility] Radiology Nuclear Medicine and PET - [address] [phone] 02/29/2024 14:30 EDT Appointment [facility] Radiology Nuclear Medicine and PET - [address] [phone] 03/01/2024 8:00 EDT Appointment [facility] Radiology Nuclear Medicine and PET - [address] [phone] 03/01/2024 9:30 EDT Appointment [facility] Radiology Nuclear Medicine and PET - [address] [phone] documented as of this encounter Visit Diagnoses Not on filedocumented in this encounter Care Teams Billet Heater Operator Relationship Specialty Start Date End Date None, Provider PCP - General 03/08/16 08/21/18 documented as of this encounter
--- OUTSIDE RECORDS SUMMARY | 2024-02-06 13:43 | XMS_ITS | Encounter Summary ---
Author Organization [facility] Address [address] [place] [address] Care Team Providers Care Orthopedic Podiatrist Name Role Phone None, Provider Primary Care Provider Unavailabl e Encounter Details Date Type Department Care Team (Late st Contact Info) Description 02/11/2015 Results Only [facility] [phone] [address] Social History Tobacco Use Types [...] Visit [facility] Adult Primary Care - [address] [phone] Carrington Calderon MD [address] [phone] 02/27/2024 8:30 EDT Telemedicine [facility] Sleep Program - [address] [phone] Dwight Colbert [address] [place] [address] 02/29/2024 10:30 EDT Appointment [facility] Radiology Nuclear Medicine and PET [address] [phone] 02/29/2024 14:30 EDT Appointment [facility] Radiology Nuclear Medicine and PET [address] [phone] 03/01/2024 8:00 EDT Appointment [facility] Radiology Nuclear Medicine and PET [address] [phone] 03/01/2024 9:30 EDT Appointment [facility] Radiology Nuclear Medicine and PET [address] [address] documented as of this encounter Procedures Procedure Name Priority Date/Time Associated Diagnosis Comments BLOOD TYPE FOR PRENATALS- AMBULATORY Routine 02/11/2015 14:34 EDT ANTIBODY SCREEN- AMBULATORY ORDER ONLY Routine 02/11/2015 14:34 EDT documented in this encounter Results * ANTIBODY SCREEN- AMBULATORY ORDER ONLY (02/11/2015 14:34 EDT) Antibody Screen Neg 02/11/2015 22:52 EDT [facility] BLOOD SPECIMEN / Unknown 02/11/2015 14:34 EDT 02/11/2015 20:49 EDT Alaina Miranda [facility] BLOOD BANK TESTS [facility] [address] [place] [address] * BLOOD TYPE FOR PRENATALS- AMBULATORY (02/11/2015 14:34 EDT) ABO and Rh Type B NEG 02/11/2015 22:52 EDT [facility] BLOOD SPECIMEN / Unknown 02/11/2015 14:34 EDT 02/11/2015 20:49 EDT Alaina Miranda CNM BLOOD BANK ORDERABLE S [facility] [address] [place] [address] documented in this encounter Visit Diagnoses Not on filedocumented in this encounter Care Teams Orthopedic Podiatrist Relationship Specialty Start Date End Date None, Provider PCP - General 01/01/15 08/27/15 documented as of this encounter
--- OUTSIDE RECORDS SUMMARY | 2024-02-06 13:43 | XMS_ITS | Encounter Summary ---
Author Organization [facility] Address [address] [place] [address] Care Team Providers Care Actor Understudy Name Role Phone None, Provider Primary Care Provider Unavailabl e Encounter Details Date Type Department Care Team (Late st Contact Info) Description 02/11/2015 13:08 EDT - 02/11/2015 13:[address] [facility] - [address] [address] Alaina Miranda, [address] [address] Sunday Miranda MD [address] JOSEPH [address] [place] [phone] [...] [facility] Adult Primary Care - [address] [address] Carrington Calderon MD [address] [phone] 02/27/2024 8:[address] [facility] Sleep Program - [address] [address] Dwight Colbert [address] [place] [phone] 02/29/2024 10:30 EDT Appointment [facility] Radiology Nuclear Medicine and PET [address] 142151 02/29/2024 14:30 EDT Appointment [facility] Radiology Nuclear Medicine and PET [address] [phone] 03/01/2024 8:00 EDT Appointment [facility] Radiology Nuclear Medicine and PET [address] 768741 03/01/2024 9:30 EDT Appointment [facility] Radiology Nuclear Medicine and PET [address] [phone] documented as of this encounter Visit Diagnoses Not on filedocumented in this encounter Care Teams Actor Understudy Relationship Specialty Start Date End Date None, Provider PCP - General 01/01/15 08/27/15 documented as of this encounter
--- OUTSIDE RECORDS SUMMARY | 2024-02-06 13:43 | XMS_ITS | Encounter Summary ---
Author Organization [facility] Address [address] [place] [address] Care Team Providers Care Community Health Director Name Role Phone Nimihsa Clifton COVERING AND LINING SUPERVISOR Primary Care Provider [phone] Reason for Visit * Reason Onset Date Comments No Show 10/03/2015 Encounter Details Date Type Department Care Team (Late st Contact Info) Description 10/03/2015 Telephone [facility] Adult Primary Care - [place] [address] [place], [place] [address] Nimisha Clifton, COVERING AND LINING SUPERVISOR 1 [facility] Level 1 [place] [address] No Show Social History Tobacco [...] [facility] Adult Primary Care - [address] [phone] Carrington Calderon MD [address] [place] [phone] 02/27/2024 8:30 EDT Telemedicine [facility] Sleep Program - [address] [phone] Dwight Colbert [address] [place] [phone] 02/29/2024 10:30 EDT Appointment [facility] Radiology Nuclear Medicine and PET [address] 570811 02/29/2024 14:30 EDT Appointment [facility] Radiology Nuclear Medicine and PET [address] 170161 03/01/2024 8:00 EDT Appointment [facility] Radiology Nuclear Medicine and PET [address] 913941 03/01/2024 9:30 EDT Appointment [facility] Radiology Nuclear Medicine and PET [address] 244041 documented as of this encounter Visit Diagnoses Not on filedocumented in this encounter Care Teams Community Health Director Relationship Specialty Start Date End Date Nimisha Clifton NP [address] [place] [phone] PCP - General 08/28/15 03/07/16 documented as of this encounter
--- OUTSIDE RECORDS SUMMARY | 2024-02-06 13:43 | XMS_ITS | Encounter Summary ---
Author Organization [facility] Address [address] [place] [address] Care Team Providers Care Pharmacy Helper Name Role Phone Madeline Caputo Primary Care Provider [phone]- [phone] Reason for Visit * Reason Comments Blood Sugar Problem NPD Encounter Details Date Type Department Care Team (Latest Contact Info) Description 05/12/2010 15:00 EST Office Visit [facility] Endocrinology - [facility] [address] [place], [place] [phone] Fermin Srinivasan MD [address] [place] [address] [address] [place] [address] Diabetes (CMS-HCC) ([facility]) (Primary Dx); Obesity, unspecified Social History [...] - 05/12/2010 17:03 EST Recent A1c from [facility] 7.7%. Goal will be less than 7%. [...] similar or higher. Went to [facility] ER 05/10/10 because of BG 335. C/o [...] 4 siblings, knows about 2, noDM. 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 Very unusual alcohol Activity - busy [...] tryand work on lifestyle. Seeing dietition ion [facility] next week. Will come back in June. If continues with inadequate control, will consider GLP-1 receptor agonist versus basal insulin. Would not suggest TZD, as potential for weight gain in her is considerable. Plan: Recent A1c from [facility] 7.7%. Goal will be less than 7%. [...] [facility] - [address] 734331 Carrington Calderon MD 1 [facility] 1 [place] [address] 02/27/2024 8:30 EDT Telemedicine [facility] Sleep Program - [address] 567841 Dwight Colbert [address] [place] [phone] 02/29/2024 10:30 EDT Appointment [facility] Radiology Nuclear Medicine and PET [address] 192621 02/29/2024 14:30 EDT Appointment [facility] Radiology Nuclear Medicine and PET [address] 110881 03/01/2024 8:00 EDT Appointment [facility] Radiology Nuclear Medicine and PET [address] 298751 03/01/2024 9:30 EDT Appointment [facility] Radiology Nuclear Medicine and PET [address] [phone] Scheduled Orders Name Type Priority Associated Diagnoses Orde r Schedule POCT HEMOGLOBIN A1C Point of Care Testing Routine Diabetes ([facility] ([facility]) Ordered: 05/12/2010 documented as of this encounter Visit Diagnoses Diagnosis Diabetes ([facility])- Primary Type II or unspecified type diabetes mellitus without mention of complication, not stated as uncontrolled Obesity, unspecified documented in this encounter Care Teams Pharmacy Helper Relationship Specialty Start Date End Date Madeline Caputo PA [address] [place] [address] PCP - General 05/10/10 12/31/14 documented as of this encounter
--- OUTSIDE RECORDS SUMMARY | 2024-02-06 13:43 | XMS_ITS | Encounter Summary ---
Author Organization [facility] Address [address] [place] [address] Care Team Providers Care Tail Worker Name Role Phone None, Provider Primary Care Provider Unavailabl e Encounter Details Date Type Department Care Team (Late st Contact Info) Description 08/22/2015 Documentation Visit [facility] Obstetrics & Midwifery - [address] [phone] Broderick Wolff MD 111 [facility], Level 4 [place] [address] Social History Tobacco Use Types [...] [facility] - [place] 1 [place] [address] Carrington Calderon MD 1 [facility] 1 [place] [address] 02/27/2024 8:30 EDT Telemedicine [facility] Sleep Program - [address] [address] Dwight Colbert [address] [place] [address] 02/29/2024 10:30 ED[facility] [address] 337121 02/29/2024 14:30 EDT Appointment [facility] Radiology Nuclear Medicine and PET [address] 999361 03/01/2024 8:00 EDT Appointment [facility] Radiology Nuclear Medicine and PET [address] 548101 03/01/2024 9:30 EDT Appointment [facility] Radiology Nuclear Medicine and PET [address] [phone] documented as of this encounter Visit Diagnoses Not on filedocumented in this encounter Care Teams Tail Worker Relationship Specialty Start Date End Date None, Provider PCP - General 01/01/15 08/27/15 documented as of this encounter
--- OUTSIDE RECORDS SUMMARY | 2024-02-06 13:43 | XMS_ITS | Encounter Summary ---
Author Organization [facility] Address [address] [place] [address] Care Team Providers Care Physical Therapy Teacher Name Role Phone None, Provider Primary Care Provider Unavailabl e Encounter Details Date Type Department Care Team (Late st Contact Info) Description 08/01/2015 10:45 EST - 08/01/2015 10:46 EST Hospital Encounter [address] [address] Kamini Vega MD 111 [facility] 4 [place] [phone] Discharge Disposition: Home or Self Care Social [...] [facility] Adult Primary Care - [address] [address] Carrington Calderon MD [address] [phone] 02/27/2024 8:30 EDT Telemedicine [facility] Sleep Program - [address] [address] Dwight Colbert [address] [place] [address] 02/29/2024 10:30 EDT Appointment [facility] Radiology Nuclear Medicine and PET - [address] 162841 02/29/2024 14:30 EDT Appointment [facility] Radiology Nuclear Medicine and PET [address] 157741 03/01/2024 8:00 EDT Appointment [facility] Radiology Nuclear Medicine and PET [address] 768651 03/01/2024 9:30 EDT Appointment [facility] Radiology Nuclear Medicine and PET [address] [address] documented as of this encounter Visit Diagnoses Not on filedocumented in this encounter Care Teams Physical Therapy Teacher Relationship Specialty Start Date End Date None, Provider PCP - General 01/01/15 08/27/15 documented as of this encounter
--- OUTSIDE RECORDS SUMMARY | 2024-02-06 13:43 | XMS_ITS | Encounter Summary ---
Author Organization [facility] Address [address] [place] [address] Care Team Providers Care Loan Review Officer Name Role Phone Madeline Caputo Primary Care Provider [phone]- [phone] Reason for Visit * Reason Comments Hyperglycemia Pt reports 335 FS at 2100, just dx with DM type 2 after thanksgiving started on metformin. Pt reports BUSH and generally not feeling well Encounter Details Date Type Department Care Team (Late st Contact Info) Description 05/10/2010 22:38 EST - 05/11/2010 0:55 EST Emergency [facility] Emergency Department - [address] [phone] Maj Almanza MD [address] [place] [phone] Doris Moreno MD [address] [place] [address], Level 1 [place] [phone] Emergency, MD Ekaterina Hyperglycemia; Bullous myringitis; Bronchitis; [...] 23:40 EST Call endocrine clinic tomorrow at [phone], let them know you were seen in ED and Dr. Mera approved you being seen for expedited New Diabetes appt Continue weight loss efforts Zithromax as prescribed. For second opinion re headaches : call Dr. Poe [phone] For appt. Please return if worsening symptoms or any new concerns. * Attachments The following attachments cannot be sent through Care Everywhere. * BRONCHITIS IN ADULTS: AFTER YOUR VISIT (MALAY) * DIABETES CARE WHEN YOU ARE SICK: AFTER YOUR VISIT (MALAY) * DIABETES DIET GUIDELINES: AFTER YOUR VISIT (MALAY) documented in this encounter Medications at Time [...] doctors office and was referred to the [place] ED, but pt understood that they refused to see me as they needed to talk to her doctor first. Therefore, she came to [place]. Pt notes recent nasal congestion, cough, and [...] [facility] [place] [address] Carrington Calderon MD [address] [phone] 02/27/2024 8:30 EDT Telemedicine [facility] Sleep Program - [address] [place] [address] Dwight Colbert [address] [place] [address] 02/29/2024 10:30 ED[facility] - [address] [address] 02/29/2024 14:30 EDT Appointment [facility] Radiology Nuclear Medicine and PET [address] [address] 03/01/2024 8:00 EDT Appointment [facility] Radiology Nuclear Medicine and PET [address] [address] 03/01/2024 9:30 EDT Appointment [facility] Radiology Nuclear Medicine and PET [address] [address] documented as of this encounter Procedures Procedure [...] CARE TEST O RDERADONALDO Performing Organization Address [facility] de Phone Number POINT OF CARE [...] CARE TEST O MARILIA Performing Organization Address [facility] de Phone Number POINT OF CARE * ELEVATED GLUCOSE (05/10/2010 22:53 EST) Elevated Glucose Screening glucose greater than 180 mg/dl. Please order follow up hemoglobin A1c. [facility] 05/10/2010 22:5 3 EST 05/10/2010 23:36 EST Maj Archie MARTÍNEZ CHEMISTRY & BLOOD GA S ORDERABLES Performing Organization Address [facility] Co de Phone Number [facility] [address] [place] [address] * (ABNORMAL) HEMAGRAM AND DIFFERENTIAL (05/10/2010 22:53 [...] Eosinophils 0.22 0.03 - 0.61 K/cmm [facility] Basophils 0.06 0.01 - 0.11 K/cmm [facility] Type of Diff: Automated [facility] Blood specimen (specimen) 05/10/2010 22:53 EST 05/10/2010 23:36 EST Maj Archie MARTÍNEZ PACKAGES & DNA PROBE ORDERABLES [facility] [address] [place] [address] * (ABNORMAL) SCREENING GLUCOSE (05/10/2010 22:53 EST) Glucose, Screening 238(H) 70 - 100 mg/dl [facility] Blood specimen (specimen) 05/10/2010 22:53 EST 05/10/2010 23:36 EST Maj Archie MARTÍNEZ CHEMISTRY & BLOOD GA S ORDERABLES Performing Organization Address [facility] de Phone Number [facility] [address] [place] [address] * CREATININE (05/10/2010 22:53 EST) Creatinine 0.80 0.7 - 1.5 mg/dl [facility] GFR, Calculated >60 ml/min/1.7 3m2 [facility] Blood specimen (specimen) 05/10/2010 22:53 EST 05/10/2010 23:36 EST Maj Archie MARTÍNEZ CHEMISTRY & BLOOD GA S ORDERABLES Performing Organization Address [facility] de Phone Number [facility] [address] [place] [address] * BUN (05/10/2010 22:53 EST) BUN 12 10 - 26 mg/dl [facility] Blood specimen (specimen) 05/10/2010 22:53 EST 05/10/2010 23:36 EST Maj Archie MARTÍNEZ CHEMISTRY & BLOOD GA S ORDERABLES Performing Organization Address [facility] de Phone Number [facility] [address] [place] [address] * ELECTROLYTES (05/10/2010 22:53 EST) Sodium 138 136 - 145 mEq/L [facility] Potassium 4.4 3.5 - 5.0 mEq/L [facility] Chloride 98 96 - 110 mEq/L [facility] CO2 29 24 - 32 mEq/L [facility] Blood specimen (specimen) 05/10/2010 22:53 EST 05/10/2010 23:36 EST Maj Archie MARTÍNEZ CHEMISTRY & BLOOD GA S ORDERABLES [facility] [address] [place] [address] documented in this encounter Visit Diagnoses Diagnosis [...] 05/10 documented in this encounter Care Teams Loan Review Officer Relationship Specialty Start Date End Date Madeline Caputo PA [address] [place] [address] PCP - General 05/10/10 12/31/14 documented as of this encounter
--- OUTSIDE RECORDS SUMMARY | 2024-02-06 13:43 | XMS_ITS | Encounter Summary ---
Author Organization [facility] Address [address] [place] [address] Care Team Providers Care Or Assistant Name Role Phone None, Provider Primary Care Provider Unavailabl e Reason for Visit * Reason Comments Foot Injury States a log fell on her left foot about 1 hour ago while swimming. + pain, swelling, tingling, and numbness. Unable to walk on foot. 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 Encounter Details Date Type Department Care Team (Late st Contact Info) Description 01/01/2015 0:26 EDT - 01/01/2015 2:25 EDT Emergency [facility] Emergency Department - [address] [phone] Kylah Whitaker PA-C [address] [place] [address], Level 1 [place] [address] Emergency, MD Ekaterina Contusion of [...] be sent through Care Everywhere. 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 HPI [...] - Abnormal Glucose, Fingerstick 152 (*) Final Flight Teacher ID [id number] Final POCT GLUCOSE Procedures ED COURSE [facility] - [address] [phone] Carrington Calderon MD [address] [address] 02/27/2024 8:30 EDT Telemedicine [facility] Sleep Program - [address] 176131 Dwight Colbert [address] [place] [address] [phone] 02/29/2024 10:30 EDT [facility] Radiology Nuclear Medicine and PET - [address] 420861 02/29/2024 14:30 EDT [facility]ointment [facility] Radiology Nuclear Medicine and PET [address] 309011 03/01/2024 8:00 EDT Appointment [facility] Radiology Nuclear Medicine and PET - [address] 861781 03/01/2024 9:30 EDT Appointment [facility] Radiology Nuclear Medicine and [address] [address] documented as of this encounter Procedures Procedure [...] 70 - 100 mg/dl 01/01/2015 0:[address] [facility] Flight Teacher ID [id number] 01/01/2015 0:[address] [facility] Comment:Test Performed by Nu rsing Services BLOOD SPECIMEN / Unknown 01/01/2015 0:53 EDT 01/01/2015 0:56 EDT Provider Unknown MD CHEMISTRY & BLOOD GA S ORDERABLES [facility] [address] [place] [address] documented in this encounter Visit Diagnoses Diagnosis [...] 01/01/2015 documented in this encounter Care Teams Or Assistant Relationship Specialty Start Date End Date None, Provider PCP - General 01/01/15 08/27/15 documented as of this encounter
--- OUTSIDE RECORDS SUMMARY | 2024-02-06 13:43 | XMS_ITS | Encounter Summary ---
Author Organization [facility] Address [address] [place] [address] Care Team Providers Care Prize Jacker Name Role Phone None, Provider Primary Care Provider Unavailabl e Reason for Visit * Reason Comments Cough Sent from [facility], for cough, fever, sore throat x three day, cough in dry, c/o chest pain and headache due to the cough. [id number] lungs sound diminished t/o Encounter Details Date Type Department Care Team (Late st Contact Info) Description 03/08/2016 17:09 EDT - 03/08/2016 23:11 EDT Emergency [facility] Emergency Department - [address] [phone] Broderick Foster MD 111 [facility], Level 1 [place] [phone] Emergency, MD Ekaternia Acute bronchitis, unspecified organism (Primary Dx); Type 2 diabetes mellitus not at goal ([facility]) Discharge Disposition: Home or Self [...] cough syrup as needed. Call [facility] primary care, [phone], to arrange for an appointment as soon [...] gait * Nini Schultz RN - 03/08/2016 5686 EDT Blood drawn via butterfly needle per [...] HR-120, BP-90/50, NOTE TAKEN BY DR. FOSTER ([facility]) * Catherine Osullivan - 03/08/2016 1720 EDT TCALL: CRISTY TALBOT, 85, 30YO FEMALE, DMII, NO MEDS X4 MONTHS, NOW RESP. INFECTION, WBC 21,000 GLUC. 273, CXR NEG., HR-120, BP-90/50, NOTE TAKEN BY DR. FOSTER ([facility]) * Catherine Osullivan - 03/08/2016 1720 EDT TCALL: CRISTY TALBOT, 85, 30YO FEMALE, DMII, NO MEDS X4 MONTHS, NOW RESP. INFECTION, WBC 21,000 GLUC. 273, CXR NEG., HR-120, BP-90/50, NOTE TAKEN BY DR. FOSTER ([facility]) * Broderick Foster MD - 03/08/2016 1716 EDT DOS: 03/08/2016 Chief Complaint Patient presents with ??? Cough Sent from [facility], for cough, fever, sore throat x [...] diarrhea, and constipation. She reports going to [facility] who sent her here due to elevated [...] Value Status Glucose, Fingerstick 163 (*) Final [facility] [place] [id number] Final GLUCOSE, GLUCOMETER - Abnormal Glucose, Fingerstick 239 (*) Final [facility] [place] [id number] Final BACTERIAL CULTURE, BLOOD BACTERIAL CULTURE, BLOOD [...] Pt was instruction to follow up at [facility]. Prior to discharge usual [...] [facility] [address] [phone] Carrington Calderon MD [address] [place] [address] Level 1 [place] [phone] 02/27/2024 8:30 EDT Telemedicine [facility] Sleep Program - [address] [place] [address] Dwight Colbert [address] [place] [address] 02/29/2024 10:30 EDT Appointment [facility] Radiology Nuclear Medicine and PET - [address] [address] 02/29/2024 14:30 EDT Appointment [facility] Radiology Nuclear Medicine and PET - [address] [phone] 03/01/2024 8:00 EDT Appointment [facility] Radiology Nuclear Medicine and PET [address] [phone] 03/01/2024 9:30 EDT Appointment [facility] Radiology Nuclear Medicine and PET [address] [address] documented as of this encounter Procedures Procedure Name Priority Date/Time Associated Diagnosis Comments GLUCOSE, GLUCOMETER Routine 03/08/2016 2 1:11 EDT BACTERIAL CULTURE, BLOOD Routine 03/08/2016 18:47 EDT BACTERIAL CULTURE, BLOOD Routine 03/08/2016 18:47 EDT GLUCOSE, GLUCOMETER Routine 03/08/2016 1 7:24 EDT documented in this encounter Results * (ABNORMAL) GLUCOSE, GLUCOMETER (03/08/2016 21:11 EDT) Glucose, Fingerstick 239(H) 70 - 100 mg/dl 03/08/2016 21:12 EDT [facility] ID [id number] 03/08/2016 21:12 EDT [facility] Comment:[facility] BLOOD SPECIMEN / Unknown 03/08/2016 21:11 EDT 03/08/2016 21:12 EDT Provider Unknown CHEMISTRY & BLOOD GA S ORDERABLES Performing Organization Address [facility]/ZIP Co de Phone Number [facility] [address] [place] [address] * BACTERIAL CULTURE, BLOOD (03/08/2016 18:47 EDT) Result No growth 03/13/2016 8:26 EDT [facility] Blood specimen (specimen) BLOOD SPECIMEN / Unknown 03/08/2016 18:47 EDT 03/08/2016 20:07 EDT Comment:Left~Antecubital Broderick Foster MD MICROBIOLOGY - GENE RAL ORDERABLES Performing Organization Address [facility] Co de Phone Number [facility] [address] [place] [address] * BACTERIAL CULTURE, BLOOD (03/08/2016 18:47 EDT) Result No growth 03/13/2016 8:26 EDT [facility] Blood specimen (specimen) BLOOD SPECIMEN / Unknown 03/08/2016 18:47 EDT 03/08/2016 20:05 EDT Comment:Right~Antecubital Broderick Foster MD MICROBIOLOGY - GENE RAL ORDERABLES Performing Organization Address [facility] Co de Phone Number [facility] [address] [place] [address] * (ABNORMAL) GLUCOSE, GLUCOMETER (03/08/2016 17:24 EDT) Glucose, Fingerstick 163(H) 70 - 100 mg/dl 03/08/2016 17:26 EDT [facility] ID [id number] 03/08/2016 17:26 EDT [facility] Comment:[facility] BLOOD SPECIMEN / Unknown 03/08/2016 17:24 EDT 03/08/2016 17:26 EDT Provider Unknown CHEMISTRY & BLOOD GA S ORDERABLES [facility] [address] [place] [address] documented in this encounter Visit Diagnoses Diagnosis Acute bronchitis, unspecified organism- Primary Type 2 diabetes mellitus not at goal ([facility]) Type II or unspecified type diabetes [...] STAT 2206 (Given - Provid er: Nini Schutlz RN) HYDROmorphone (PF) (DILAUDID) 1 mg/mL injection [...] 03/08/2016 documented in this encounter Care Teams Prize Jacker Relationship Specialty Start Date End Date None, Provider PCP - General 03/08/16 08/21/18 documented as of this encounter
--- OUTSIDE RECORDS SUMMARY | 2024-02-06 13:43 | XMS_ITS | Encounter Summary ---
Author Organization [facility] Address [address] [place] [address] Care Team Providers Care Plug Paster Name Role Phone Nimisha Clifton ASSISTANT PROFESSOR OF SURGERY Primary Care Provider [phone] Reason for Visit * Reason Comments New Patient Visit Otalgia pain off and on for years but hurts consistantly since Tuesday Encounter Details Date Type Department Care Team (Late st Contact Info) Description 09/03/2015 11:00 EDT Office Visit [facility] - [address] [phone] Nimisha Clifton NP [address] [phone] Type 2 diabetes mellitus without complication (CMS-HCC) [...] over the past years. Originally from the [facility]. Presently lives [facility] with her boyfriend/significant other and [...] citalopram and develop suicidal ideation-she went to [place] for a short stay for withdrawal from [...] years until this past month when her LEAD CASTER placed her back on it in early [...] unknown. She follows with Dr. López/affiliates in [place] for her [facility] care. She had a D&C done earlier [...] Hemoglobin A1c; Future Tachycardia Orders: - Thyroid [place]; Future Depression, unspecified depression type Orders: - Thyroid [place]; Future Other orders - insulin glargine ([facility] [...] Visit [facility] - [address] [phone] Carrington Calderon MD [address] [phone] 02/27/2024 8:30 EDT Telemedicine [facility] Sleep Program - [address] [phone] Dwight Colbert [address] [place] [address] [phone] 02/29/2024 10:30 EDT Appointment [facility] Radiology Nuclear Medicine and PET [address] [phone] 02/29/2024 14:30 EDT Appointment [facility] Radiology Nuclear Medicine and PET - [address] [phone] 03/01/2024 8:00 EDT Appointment [facility] Radiology Nuclear Medicine and PET [address] [address] 03/01/2024 9:30 EDT Appointment [facility] Radiology Nuclear Medicine and [address] [address] documented as of this encounter Results * (ABNORMAL) THYROID CASCADE (09/03/2015 12:33 EDT) TSH 0.48(L) 0.55 - 4.78 uIU/ml 09/03/2015 18:19 EDT [facility] Comment: TSH cascade is not recommended for patients in which pituitary or hypothalamic disorders are suspected. Blood specimen (specimen) BLOOD SPECIMEN / Unknown 09/03/2015 12:33 EDT 09/03/2015 13:37 EDT Nimisha Clifton NP CHEMISTRY & BLOOD GAS ORDERABLES Performing Organization Address [facility] Co de Phone Number [facility] [address] [place] [address] * HEMOGLOBIN A1C (09/03/2015 12:33 EDT) Pathologist [facility] Hemoglobin A1C 8.8 % 09/03/2015 14:56 EDT [facility] Comment: Reference Range: [...] Avg Glucose 206 mg/dl 6 14:56 EDT [facility] Comment: eAG represents the A1c result expressed as average glucose in mg/dl. Blood specimen (specimen) BLOOD SPECIMEN / Unknown 09/03/2015 12:33 EDT 09/03/2015 13:37 EDT Nimisha Clifton NP CHEMISTRY & BLOOD GAS ORDERABLES [facility] [address] [place] [address] * (ABNORMAL) COMPREHENSIVE METABOLIC PANEL (CMP) (09/03/2015 12:33 EDT) Potassium 4.1 3.5 - 5.0 mEq/L 09/03/2015 14:15 [facility] Sodium 141 136 - 145 mEq/L 09/03/2015 14:15 [facility] Chloride 101 96 - 110 mEq/L 09/03/2015 14:15 [facility] CO2 29 24 - 32 mEq/L 09/03/2015 14:15 [facility] Total Alkaline Phosphatase 84 38 - 126 U/L 09/03/2015 14:15 [facility] Bilirubin, Total <0.5 <1.4 mg/dl 09/03/19 16 14:15 [facility] AST 19 15 - 46 U/L 09/03/2015 14:15 [facility] ALT 33 <53 U/L 09/03/2015 14:15 [facility] Albumin 3.9 3.4 - 4.9 g/dl 09/03/2015 14:15 [facility] Total Protein 6.6 6.3 - 8.2 g/dl 09/03/2015 14:15 [facility] Creatinine 0.48(L) 0.52 - 1.04 mg/dl 09/03/2015 14:15 [facility] GFR, Calculated 132 >60 ml/min/1.7 3m2 09/03/2015 14:15 [facility] Comment: eGFR calculated using CKD-EPI equation for non Americans. Multiply eGFR by 1.16 for Americans. BUN 11 10 - 26 mg/dl 09/03/2015 14:15 [facility] Calcium 9.8 8.5 - 10.5 mg/dl 09/03/2015 14:15 [facility] Calculated Calcium 10.3 8.5 - 10.5 mg/dl 09/03/2015 14:15 [facility] Glucose, Serum 205(H) 70 - 100 mg/dl 09/03/2015 14:15 EDT [facility] Fasting? No 09/03/2015 12:23 EDT [facility] Blood specimen (specimen) BLOOD SPECIMEN / Unknown 09/03/2015 12:33 EDT 09/03/2015 13:37 EDT Nimisha Clifton NP CHEMISTRY & BLOOD GAS ORDERABLES [facility] [address] [place] [address] documented in this encounter Visit Diagnoses Diagnosis Type 2 diabetes mellitus without complication ([facility])- Primary Type II or unspecified type diabetes [...] 03/08/2016 added in this encounter Care Teams Plug Paster Relationship Specialty Start Date End Date Nimisha Clifton NP 1 [facility] 1 [place] [phone] PCP - General 08/28/15 03/07/16 documented as of this encounter
--- OUTSIDE RECORDS SUMMARY | 2024-02-06 13:43 | XMS_ITS | Encounter Summary ---
Author Organization [facility] Address [address] [place] [address] Care Team Providers Care Carrier Driver Name Role Phone None, Provider Primary [...] Description 07/30/2016 12:30 EST Office Visit [facility] Ophthalmology - [address] [address] Broderick Schwartz MD [address] [place] [address], Level 5 [place] [address] Social History Tobacco Use Types [...] Psychiatric: NL Endocrine: Diabetes Hematologic: NL Immunologic: Project Executive: Exposures: Other: Attestation: Allergies include: Citalopram and [...] [facility] Primary Care - [address] [phone] Carrington Calderon MD 1 [facility] Level 1 [place] [phone] 02/27/2024 8:30 EDT Telemedicine [facility] Sleep Program - [address] [place] [address] Dwight Colbert [address] [place] [address] 02/29/2024 10:30 EDT [facility] Radiology Nuclear Medicine and PET - [address] [address] 02/29/2024 14:30 EDT Appointment [facility] Radiology Nuclear Medicine and PET [address] [address] 03/01/2024 8:00 EDT Appointment [facility] Radiology Nuclear Medicine and PET [address] [phone] 03/01/2024 9:30 EDT Appointment [facility] Radiology Nuclear Medicine and PET [address] [address] documented as of this encounter Visit Diagnoses [...] Normal Normal Vessels Normal Normal Care Teams Carrier Driver Relationship Specialty Start Date End Date None, Provider PCP - General 03/08/16 08/21/18 documented as of this encounter
--- OUTSIDE RECORDS SUMMARY | 2024-02-06 13:43 | XMS_ITS | Encounter Summary ---
Author Organization [facility] Address [address] [place] [address] Care Team Providers Care Insulation Professional Name Role Phone Jasmin Jara Primary Care Provider Unavail able Encounter Details Date Type Department Care Team (Late st Contact Info) Description 02/16/2010 Abstract Used for ABSTRACTING Data [phone] Jasmin Jara PA Social History Tobacco Use [...] [facility] Adult Primary Care - [address] 174331 Carrington Calderon MD [address] [place] [phone] 02/27/2024 8:30 EDT Telemedicine [facility] Sleep Program - [address] [phone] Dwight Colbert [address] [place] [phone] 02/29/2024 10:30 EDT Appointment [facility] Radiology Nuclear Medicine and PET - [facility] [address] [place], [place] 7[address] [phone] 02/29/2024 14:30 EDT Appointment [facility] Radiology Nuclear Medicine and PET [address] [address] 03/01/2024 8:00 EDT Appointment [facility] Radiology Nuclear Medicine and PET [address] [address] 03/01/2024 9:30 EDT Appointment [facility] Radiology Nuclear Medicine and PET [address] [address] documented as of this encounter Visit Diagnoses [...] 05/10/2010 added in this encounter Care Teams Insulation Professional Relationship Specialty Start Date End Date Jasmin Jara PA PCP - General 10/06/09 05/09/10 documented as of this encounter
--- OUTSIDE RECORDS SUMMARY | 2024-02-06 13:43 | XMS_ITS | Encounter Summary ---
Author Organization [facility] Address [address] [place] [address] Care Team Providers Care Vp Care Management Name Role Phone None, Provider Primary Care Provider Unavailabl e Encounter Details Date Type Department Care Team (Late st Contact Info) Description 08/01/2015 Results Only [facility] [phone] Kamini Vega MD [address] [phone] Social History Tobacco Use Types Packs/Day Years [...] [facility] Care - [address] [phone] Carrington Calderon MD [address] [place] [phone] 02/27/2024 8:30 EDT Telemedicine [facility] Sleep Program - [address] [phone] Dwight Colbert [address] [place] [phone] 02/29/2024 10:30 EDT Appointment [facility] Radiology Nuclear Medicine and PET - [address] [phone] 02/29/2024 14:30 EDT Appointment [facility] Radiology Nuclear Medicine and PET [address] [phone] 03/01/2024 8:00 EDT Appointment [facility] Radiology Nuclear Medicine and PET [address] [phone] 03/01/2024 9:30 EDT Appointment [facility] Radiology Nuclear [facility] and PET [address] 655011 documented as of this encounter Procedures Procedure Name Priority Date/Time Associated Diagnosis Comments PROGESTERONE Routine 08/01/2015 9:38 EST documented in this encounter Results * PROGESTERONE (08/01/2015 9:38 EST) Progesterone 9.7 ng/ml 08/01/2015 19:37 EST [facility] Comment: NON- FEMALES: follicular phase: ??<0.2-1.4 ng/mL luteal phase: 3.3-25.6 ng/ml postmenopausal: ??<0.2-0.7 ng/mL FEMALES: first trimester: 11.2-90.0 ng/ml second trimester: 25.6-89.4 ng/ml third trimester: 48.4-422.5 ng/ml ECTOPIC PREGNANCIES: consult pathologist BLOOD SPECIMEN / Unknown 08/01/2015 9:38 EST 08/01/2015 17:36 EST Kamini Vega MD CHEMISTRY & BLOOD GA S ORDERABLES [facility] [address] [place] [address] documented in this encounter Visit Diagnoses Not on filedocumented in this encounter Care Teams Vp Care Management Relationship Specialty Start Date End Date None, Provider PCP - General 01/01/15 08/27/15 documented as of this encounter
--- OUTSIDE RECORDS SUMMARY | 2024-02-06 13:43 | XMS_ITS | Encounter Summary ---
Author Organization [facility] Address [address] [place] [address] Care Team Providers Care Painter Mirror Name Role Phone Jasmin Jara Primary Care Provider Unavail able Encounter Details Date Type Department Care Team (Late st Contact Info) Description 05/05/2010 Results Only [facility] Laboratory Services - [facility] ([facility] [address] [place] [phone] Ann Booker MD [address] [place] [phone] Social History Tobacco Use Types Packs/Day Years [...] [facility] - [address] [phone] Carrington Calderon MD [address] [phone] 02/27/2024 8:30 EDT Telemedicine [facility] Sleep Program - [address] [phone] Dwight Colbert [address] [place] [address] 02/29/2024 10:30 EDT Appointment [facility] Radiology Nuclear Medicine and [address] [address] 02/29/2024 14:30 EDT Appointment [facility] Radiology Nuclear [facility] and [address] [address] 03/01/2024 8:00 EDT Appointment [facility] Radiology Nuclear Medicine and PET [address] [address] 03/01/2024 9:30 EDT Appointment [facility] Radiology [facility] and [address] [address] documented as of this encounter Procedures Procedure [...] ? CRISTY TALBOT ? Accession #: ? [id number] ? : ? 1985 (Age: 25) ??F [...] MD PATHOLOGY ORDERABLES [facility] [address] [place] [address] documented in this encounter Visit Diagnoses Not on filedocumented in this encounter Care Teams Painter Mirror Relationship Specialty Start Date End Date Jasmin Jara PA PCP - General 10/06/09 05/09/10 documented as of this encounter
--- OUTSIDE RECORDS SUMMARY | 2024-02-06 13:43 | XMS_ITS | Encounter Summary ---
Author Organization [facility] Address [address] [place] [address] Care Team Providers Care Director Motion Picture Name Role Phone None, Provider Primary Care [...] 15:27 EDT - 02/24/2015 20:58 EDT Emergency [facility] Emergency Department - [address] [address] Sonal Rand, MARY [address] [phone] Broderick Singh MD [address] [place] [address], Level [address] [place] [address] Chilo Carrillo MD Emergency, MD [...] 20:40 EDT Rest Lots liquids See the barn boss doctor in 2 days as planned Return [...] test on 01/19 and positive UPT at [facility] the next week. She initiated care at [facility] 2 weeks ago and was told that the fetus had no heartbeat but was measuring 7 weeks. She wanted a second opinion so she went to [facility] on 02/14 where she was told that [...] Grandmother ??? Diabetes Paternal Grandfather OB History DIRECTOR OF PLANNING History OB History Para Term AB SAB [...] examined with Dr. Michael Emanuel MD PGY-1 [facility] Obstetrics and Gynecology Pager: [phone] Brii Austin MD 02/24/2015 20:22 Attending addendum: [...] documented in this encounter ED Notes * Cihlo Carrillo MD - 02/26/2015 0856 EDT Took [...] This RN present for pt's D+C by DIRECTOR OF PLANNING. Pt monitored for 1 hr s/p procedure. [...] ER. Pt to f/u with PCP and DIRECTOR OF PLANNING. * Carline LunaMARCELO - 02/24/2015 1921 EDT Assumed care of pt. Pt tearful, family at bedside. VSS. Pt with no c/o pain or nausea at this time.Apical reg, LCTA, RR even/reg. BS present. Cap refill <2 secs. Call calloway within reach. No statedneeds at this time. * Doris Balderas RN - 02/24/2015 1844 EDT [facility] services at bedside now discussing findings and plan of care. * Doris Balderas RN - 02/24/2015 1757 EDT Taken for US. * Doris Balderas RN - 02/24/2015 1732 EDT Pad change x 2 this hour for large amount vaginal bleeding with large clots. [facility] in to evaluate-at bedside now. * [...] pending. ivf's infusing now. S/o at bedside. [facility] at bedside now. * Broderick Singh MD [...] ago. At that time, she visited her net washer and was informed that she was 7 weeks , and that her baby had a no heartbeat. For a second evaluation at that time, the patient visited [facility], and was informed that her baby's heart beat was slow. The patient reports that spotting began again 1 week ago (Tuesday) at which time she returned to [facility] and was informed that her baby did [...] Specimen will be held for 5 days. ED/[facility] ADD-ON Tests to be added TYPE AND SCREEN Final Number for problems [id number] (ED) Final BLOOD BANK SPECIMEN HOLD Hold BB Spec will exp at 23:59, 3 days from collect date Final TYPE AND SCREEN ABO B Final Rh Factor Negative Final Antibody Screen Positive Final Specimen Expires: 02/27/2015 @ 23:59 Final DIRECT ANTIGLOBULIN TEST LIZZIE Negative Final PREPARE RED BLOOD CELLS Product Code E0336 -1 RED BLOOD CELLS, Leukocytes Reduced Final Donor Number [id number] Final Unit ABO B Final Unit Rh [...] ordered. Seen in the ED by the DIRECTOR OF PLANNING service. Care is signed out to Dr. Carrillo at 17:10 with DIRECTOR OF PLANNING evaluation inprogress. ASSESSMENT AND PLAN Final diagnoses: [...] found. * Jose Thompson RN - 02/24/2015 6175 EDT Chief Complaint Patient presents with ??? [facility] - [address] [phone] Carrington Calderon MD 1 [facility] [address] [place] [phone] 02/27/2024 8:30 EDT Telemedicine [facility] Sleep Program - [address] [address] Dwight Colbert [address] [place] [phone] (work) 02/29/2024 10:[address] [facility] Radiology Nuclear Medicine and PET [address] [phone] 02/29/2024 14:[address] [facility] Radiology Nuclear Medicine and PET [address] [address] 03/01/2024 8:[address] [facility] Radiology Nuclear Medicine and PET - [address] [id number] 03/01/2024 9:[address] [facility] Radiology Nuclear Medicine and PET [address] [phone] Pending Results Name Type Priority Associated Diagnoses [...] E0336 -1 RED BLOOD CELLS, Leukocytes Reduced [facility] Donor Number [id number] [facility] Unit ABO B [facility] Unit Rh NEG [facility] Cross Match Interp Compatible [facility] Unit Status Released From Crossmatch [facility] 02/24/2015 18:4 7 EDT Chilo Carrillo MD BLOOD BANK ORDERABL ES Performing Organization Address City/[facility]/ZIP Co de Phone Number [facility] * DIRECT ANTIGLOBULIN TEST (02/24/2015 18:47 EDT) LIZZIE Negative [facility] 02/24/2015 18:4 7 EDT Chilo Carrillo MD BLOOD BANK TESTS [facility] * ANTIBODY IDENTIFICATION (02/24/2015 18:45 EDT) Antibody Identification Anti-D; patient recd RhIg [facility] 02/24/2015 18:4 5 EDT Chilo Carrillo MD BLOOD BANK TESTS Performing Organization Address City/[facility]/ZIP Co de Phone Number [facility] * RAD US PELVIS, TRANSVAGINAL, AND LIMITED DOPPLER (02/24/2015 18:21 EDT) Anatomical Region Laterality Modality Other 02/24/2015 18:2 1 EDT 02/25/2015 8:55 EDT Narrative 02/25/2015 8:55 EDT RAD US PELVIS, TRANSVAGINAL, AND LIMITED DOPPLER ??02/24/2015 6:21 PM Signs and Symptoms/Comments: ??reported IUP per barn boss which was then found in past wk to be non viable, est at 9 wks and now with increased bleeding and abd pain ??US requested by barn boss Comparison: Pelvic ultrasound October 2006 Technique: Grayscale [...] PM Signs and Symptoms/Comments: reported IUP per barn boss which was then found in past wk to be non viable, est at 9 wks and now with increased bleeding and abd pain US requested by barn boss Comparison: Pelvic ultrasound October 2006 Technique: Grayscale [...] AND SCREEN (02/24/2015 17:30 EDT) ABO B [facility] Rh Factor Negative [facility] Antibody Screen Positive [facility] Specimen Expires: 02/27/2015 @ 23:59 [facility] Blood specimen (specimen) 02/24/2015 17:30 EDT Chilo Carrillo MD BLOOD BANK TESTS [facility] * ED/[facility] ADD-ON (02/24/2015 17:30 EDT) Tests to be added TYPE AND SCREEN 02/24/2015 17:28 EDT [facility] Number for problems [id number] (ED) 02/24/2015 17:28 EDT [facility] TOPOGRAPHY UNKNOWN / Unknown 02/24/2015 17:30 EDT 02/24/2015 18:01 EDT Chilo Carrillo MD HEMATOLOGY & PF4 OR DERABLES Performing Organization Address City/[facility]/ZIP Co de Phone Number [facility] [address] [place] [address] * HOLD GREEN TOP (02/24/2015 16:00 EDT) Hold Green Top Hold for further testing. Specimen will be held for 5 days. 02/24/2015 16:18 EDT [facility] Blood specimen (specimen) BLOOD SPECIMEN / Unknown 02/24/2015 16:00 EDT 02/24/2015 16:07 EDT Sonal A Giorgi PA-C LAB INFO SERVICE AN D SUPPORT & PHONE RESULT Performing Organization Address [facility] Co de Phone Number [facility] [address] [place] [address] * BLOOD BANK SPECIMEN HOLD (02/24/2015 16:00 EDT) Hold BB Spec will exp at 23:59, 3 days from collect date [facility] Blood specimen (specimen) 02/24/2015 16:00 EDT Sonal A Giorgi PA-C BLOOD BANK TESTS Performing Organization Address [facility]/ZIP Co de Phone Number [facility] * HOLD SST (02/24/2015 16:00 EDT) Hold SST Hold for further testing. Specimen will be held for 5 days. 02/24/2015 16:18 EDT [facility] Blood specimen (specimen) BLOOD SPECIMEN / Unknown 02/24/2015 16:00 EDT 02/24/2015 16:07 EDT Sonal A Giorgi PA-C LAB INFO SERVICE AN D SUPPORT & PHONE RESULT Performing Organization Address City/[facility]/ZIP Co de Phone Number [facility] [address] [place] [address] * HOLD BLUE TOP (02/24/2015 16:00 EDT) Hold Blue Top Sample for coagulation will be discarded after 4 hours 02/24/2015 16:20 [facility] Blood specimen (specimen) BLOOD SPECIMEN / Unknown 02/24/2015 16:00 EDT 02/24/2015 16:07 EDT Sonal Rand PA-C LAB INFO SERVICE AN D SUPPORT & PHONE RESULT [facility] [address] [place] [address] * (ABNORMAL) HEMAGRAM AND DIFFERENTIAL (02/24/2015 16:00 EDT) WBC 17.81(H) 4.0 - 12.4 K/cmm 02/24/2015 16:11 [facility] RBC 4.36 3.86 - 5.04 M/cmm 02/24/2015 16:11 [facility] Hemoglobin 13.6 11.6 - 15.2 gm/dl 02/24/2015 16:11 [facility] HCT 39.5 34.9 - 44.4 % 02/24/2015 16:11 [facility] MCV 91 81 - 98 fl 02/24/2015 16:11 [facility] MCH 31.1 26.7 - 33.3 pg 02/24/2015 16:11 [facility] MCHC 34.3 32.1 - 35.9 gm/dl 02/24/2015 16:11 [facility] RDW-CV 12.6 11.7 - 14.6 % 02/24/2015 16:11 [facility] RDW-SD 39.8 37.6 - 50.3 fl 02/24/2015 16:11 [facility] PLT 383(H) 141 - 320 K/cmm 02/24/2015 16:11 [facility] MPV 8.0 7.5 - 11.2 fl 02/24/2015 16:11 EDT [facility] Neutrophils 68.0 45.5 - 79.7 % 02/24/2015 16:54 T [facility] Lymphocytes 21.0 15.0 - 46.8 % 02/24/2015 16:54 [facility] % Atyp Lymphs 2.0 % 02/24/2015 16:54 [facility] Monocytes 6.0 1.8 - 12.0 % 02/24/2015 16:54 T [facility] Eosinophils 2.0 0.6 - 6.9 % 02/24/2015 16:54 [facility] Basophils 1.0 0.2 - 1.4 % 02/24/2015 16:54 [facility] ABS Neutrophils 12.10(H) 2.20 - 8.85 K/cmm 02/24/2015 16:54 [facility] ABS Lymphs 3.74(H) 1.09 - 3.30 K/cmm 02/24/2015 16:54 [facility] ABS Atyp Lymphs 0.36 K/cmm 5 16:54 [facility] ABS Monocytes 1.07(H) 0.1 - 0.8 K/cmm 02/24/2015 16:54 [facility] ABS Eosinophils 0.36 0.03 - 0.61 K/cmm 02/24/2015 16:54 [facility] ABS Basophils 0.18(H) 0.01 - 0.11 K/cmm 02/24/2015 16:54 [facility] Vacuolization Present 02/24/2015 16:54 [facility] Type of Diff: Manual 02/24/2015 16:54 [facility] Blood specimen (specimen) BLOOD SPECIMEN / Unknown 02/24/2015 16:00 EDT 02/24/2015 16:07 EDT Sonal Rand PA-C PACKAGES & DNA PROB E ORDERABLES [facility] [address] [place] [address] * SURGICAL PATHOLOGY (02/24/2015 9:01 EDT) Pathology Report: SURGICAL PATHOLOGY REPORT Reports generated via electronic interface contain original data; however they are lacking the format of the original report. Caution should be taken when reading/interpret ing unformatted reports. Name: ? CRISTY MONTELONGO ? Accession #: ? [id number] ? : ? 1985 (Age: 29) ??F [...] Cruz 02/25/2015 11:33 AM End of Report [facility] 02/24/2015 9:01 EDT 02/24/2015 9:01 EDT Sonal Rand PA-C PATHOLOGY ORDERABLE S [facility] [address] [place] [address] documented in this encounter Visit Diagnoses Diagnosis [...] 02/24/2015 documented in this encounter Care Teams Director Motion Picture Relationship Specialty Start Date End Date None, Provider PCP - General 01/01/15 08/27/15 documented as of this encounter
--- OUTSIDE RECORDS SUMMARY | 2024-02-06 13:44 | XMS_ITS | Encounter Summary ---
Author Organization [facility] Address [address] [place] [address] Care Team Providers Care Door Framer Name Role Phone Unavailable Primary Care Provider Unavailabl e Encounter Details Date Type Department Care Team (Latest Contact Info) Description 12/02/2005 17:43 EDT Hospital Encounter [facility] [address] [place] [address] Villa Rodriguez MD Discharge Disposition: Auto Discharge [...] [facility] System Adult Primary Care - [address] [phone] Carrington Calderon MD [address] [phone] 02/27/2024 8:30 EDT Telemedicine [facility] Sleep Program - [address] [phone] Dwight Colbert [address] [place], [place] [address] 02/29/2024 10:30 EDT Appointment [facility] Radiology Nuclear Medicine and PET - [address] [address] 02/29/2024 14:30 EDT [facility] - [address] [address] 03/01/2024 8:00 EDT Appointment [facility] Radiology Nuclear Medicine and PET - [address] [phone] 03/01/2024 9:30 EDT Appointment [facility] Radiology Nuclear Medicine and PET - [address] [phone] documented as of this encounter Visit Diagnoses Not on filedocumented in this encounter
--- OUTSIDE RECORDS SUMMARY | 2024-02-06 13:44 | XMS_ITS | Data Portability ---
Author Organization [facility] Address [address] [address] Assessment No assessment recorded. Plan of Treatment Reminders Order Date Submit Date Provider Last Modified By Organization Details Last Modified Time Details Appointments None recorded . Lab None recorded . Referral None recorded . Procedures None recorded . Surgeries None recorded . Imaging XR, ankle, 3 or more view - fall, rolled ankle sat 024 07/25/19 [facility] Radiology Center (Xrays Only), [address] [place], [address], 07:00:24 Medication Orders None recorded . Patient TargetsNo targets recorded. Patient InstructionsNo instructions recorded. Reason for Referral None Reported. Results Created Date Observation Date Name Description Value Unit Range Abnormal Flag Note LastModifiedBy Organization Detail LastModifiedTime 07/25/19 24 07/25/2023 XR, ankle , 3 or more view No observ ation record ed. [address] Radiology Center (Xrays Only) [address] [place] [address], [address], 08/04/2023 15:52:34 Result Notes None recorded. Procedures Surgical History None recorded. Imaging Results Imaging Date Name Status LastModified by Organiz ation Details LastModified Time 07/25/2023 XR, ankle, 3 or more view completed [address] Radiology Center (Xrays Only) [address] [place], [address], 08/04/2023 15:52:34 Procedure Notes None recorded. Medical Equipment None Reported. Allergies Allergen ID Allergen Name Allergen Category Reaction Reaction Severity Criticality Documentation Date Start Date Code Code System Note Provider Name and Address Organization Details Recorded Time 76466 Advil medicatio n rash severe high 07/25/2023 43168 0 RxNorm SANDOR Burch, [facility] 4 09:53:50 21842 pomegrana te fruit extract food rash severe high 07/25/2023 90705 01 RxNorm SANDOR Burch, [facility] 4 09:54:16 87487 citalopra m medicatio n rash severe high 07/25/2023 2556 RxNorm SANDOR Burch, [facility] 4 09:54:34 Medications Name Sig Start [...] 4 20 /min 162.56 cm 33.5 kg/m2 48327.5 1 g 97.1 [degF] 99 % 99 % 111 /min 126 mm[Hg] 82 mm[Hg] Kylie Barros MA [facility] 4 09:58:29 Social History Question Answer Notes LastModified by Organizat ion Details LastModified Time Tobacco Smoking Status Current Every Day Smoker Kylie Barros MA [facility], [place] - [facility]. 07/25/2023 09:56:39 What Was The Date Of Your Most Recent Tobacco Screening? 07/25/2023 [email or web address] Information not available 07/25/2023 Has Tobacco Cessation Counseling Been Provided? Yes [email or web address] Information not available 07/25/2023 On What Date Was Tobacco Cessation Counseling Provided? 07/25/2023 [email or web address] Information not available 07/25/2023 Do You Or Have You Ever Used Any Other Forms Of Tobacco Or Nicotine? No Information not available 07/25/2023 Sex: Female Functional Status None recorded. Mental Status None recorded. Family History Nothing Reported. Medical History No medical history recorded. Gynecological HistoryNo gynecological history recorded. Obstetrics History GPAL:G 0 P 0 0 0 0 Past Encounters Encounter ID Performer Location Encounter Start Date Encounter Closed Date Diagnosis/Indication Diagnosis SNOMED-CT Code Diagnosis ICD10 Code [id number] YARA HENLEY PA-C [address] [place] [address] 07/25/2023 09:19:05 07/25/2023 10:14:51 Pain of right ankle joint 9215666478 1992409 M25.571 Health Concerns Section Related Observation LastModified by Organization Detai ls LastModified Time None Recorded Concern Status LastModified by Organization Details LastModified Time None Recorded Advance Directives Directive None Recorded Payers Encounter Date Sequence Insurance Name Policy Number Policy Cole Covered Member ID Cole Member ID Guarantor Name 07/25/2023 1 [place] [place] Cristy Luo [id number] Cristy Luo Notes Date Note Type Note [...] baseline. Has tried rest ice elevation and hkmv-ckt-ghtmaag pain medications with minimal relief. Continues to have significant pain. YARA HENLEY PA-C [address], [place], [address], [facility]. 07/25/2023 10:21:45 OBGyn Episode No OBEpisode recorded.
--- OUTSIDE RECORDS SUMMARY | 2024-02-06 13:44 | XMS_ITS | Encounter Summary ---
Author Organization [facility] Address [address] [place] [address] Care Team Providers Care Radiation Safety Officer Name Role Phone Trinity Samaniego MD Primary Care Provider Encounter Details Date Type Department Care Team (Late st Contact Info) Description 09/18/2009 [facility] Family Medicine - [address] [address] Trinity Samaniego MD [address] [place] [phone] Obesity, unspecified; Migraine NOS/not intrcbl Social [...] [facility] - [address] [phone] Carrington Calderon MD [address] [phone] 02/27/2024 8:30 EDT Telemedicine [facility] Sleep Program - [address] [phone] Dwight Colbert [address] [place] [address] 02/29/2024 10:30 EDT Appointment [facility] Radiology Nuclear Medicine and PET - [address] [address] 02/29/2024 14:30 EDT Appointment [facility] Radiology Nuclear Medicine and PET [address] [address] 03/01/2024 8:00 EDT Appointment [facility] Radiology Nuclear Medicine and PET [address] [address] 03/01/2024 9:30 EDT Appointment [facility] Radiology Nuclear Medicine and PET [address] [address] documented as of this encounter Visit Diagnoses Diagnosis Obesity, unspecified Migraine, unspecified, without mention of intractable migraine without mention of status migrainosus documented in this encounter Care Teams Radiation Safety Officer Relationship Specialty Start Date End Date Trinity Samaniego MD [address] [place] [phone] PCP - General 09/16/09 10/05/09 documented as of this encounter
--- OUTSIDE RECORDS SUMMARY | 2024-02-06 13:44 | XMS_ITS ---
Author Organization Unknown Address [address] [place] [phone] Phone Care Team Providers Care Legal Specialist Name Role Phone ROSA ISELA Judge Attending Unavailable Social History Type Status Start Date End Date Code Code Syst em Sex Female Medications Medication Start Date End Date Route Frequency Dose Code Code System Medication Instructions Home Meds Bactrim DS 800MG-160MG Oral Tablet 01/07/2024 Unknown ORAL TWICE A DAY 1 unit(s) 532798 RxNorm TAKE 1 EACH ORAL TWICE A DAY DULoxetine HCl 40MG Oral Capsule, Delayed Release 01/07/2024 Unknown ORAL DAILY 40 MILLIGRAMS 770265 RxNorm TAKE 40 MILLIGRAM S ORAL DAILY Gabapentin 300MG Oral Capsule 01/07/2024 Unknown ORAL DAILY 300 MILLIGRAMS 272281 RxNorm TAKE 300 MILLIGRAM S ORAL DAILY Gabapentin 300MG Oral Tablet 01/07/2024 Unknown ORAL BEDTIME 1200 MILLIGRAMS 5033247 RxNorm TAKE 1200 MILLIGRAM S ORAL BEDTIME Januvia 25MG Oral Tablet 01/07/2024 Unknown ORAL DAILY 25 MILLIGRAMS 651886 RxNorm TAKE 25 MILLIGRAM S ORAL DAILY Jardiance 10MG Oral Tablet 01/07/2024 Unknown ORAL DAILY 10 MILLIGRAMS 1628493 RxNorm TAKE 10 MILLIGRAM S ORAL DAILY Lantus SoloStar 100U/1ML Subcutaneous Solution 01/07/2024 Unknown SUBCUTAN EOUS BEDTIME 40 UNIT RxNorm INJECT 40 UNIT SUBCUTANE OUS BEDTIME Lidocaine 5% Topical application Patch, Extended Release 01/07/2024 Unknown TOPICAL APPLICAT ION DAILY 1 unit(s) 0861764 RxNorm 1 EACH TOPICAL APPLICATI ON DAILY Omeprazole 40MG Oral Capsule, Delayed Release 01/07/2024 Unknown ORAL DAILY 40 MILLIGRAMS 914468 RxNorm TAKE 40 MILLIGRAM S ORAL DAILY Ondansetron 4MG Oral Tablet, Disintegrating 01/07/2024 Unknown ORAL NEEDED EVERY 6 HOURS 4 MILLIGRAMS 165642 RxNorm TAKE 4 MILLIGRAM S ORAL NEEDED EVERY 6 HOURS Reglan 10MG Oral Tablet 01/07/2024 Unknown ORAL NEEDED EVERY 6 HOURS 10 MILLIGRAMS 629756 RxNorm TAKE 10 MILLIGRAM S ORAL NEEDED EVERY 6 HOURS insulin aspart 100U/1ML Injection Solution 01/07/2024 Unknown INJECTIO N THREE TIMES A DAY 1 UNIT 771199 RxNorm 1 UNIT INJECTION THREE TIMES A DAY oxyCODONE HCl-acetaminoph en 5MG-325MG Oral Tablet 01/07/2024 Unknown ORAL NEEDED EVERY 6 HOURS 1 TABLET 1611042 RxNorm TAKE 1 TABLET ORAL NEEDED EVERY 6 HOURS traMADol HCl 50MG Oral Tablet 01/07/2024 Unknown ORAL NEEDED EVERY 6 HOURS 50 MILLIGRAMS 015413 RxNorm TAKE 50 MILLIGRAM S ORAL NEEDED EVERY 6 HOURS traZODone hydrochloride 50MG Oral Tablet 01/07/2024 Unknown ORAL BEDTIME 50 MILLIGRAMS 813326 RxNorm TAKE 50 MILLIGRAM S ORAL BEDTIME Assessment You had the following problems:NAUSEAVOMITINGGASTROPARESIS WITH DMT2DM Hospital Discharge Instructions Should you have any questions prior to discharge, please contact a member of your healthcare team. If you have left the hospital and have any questions, please contact your primary care physician. Reason For Referral No Data Found Problems Problem Start Date Resolved Date Status Code Code System NAUSEA active 950959820 SNOMED-CT VOMITING active 618062286 SNOMED-CT GASTROPARESIS WITH DM active 78160830 4 SNOMED-CT T2DM active 15184667 SNOMED-CT DIABETES TYPE I 01/06/2024 resolved 36533308 SNO MED-CT GASTROPARESIS 01/06/2024 resolved 295624189 SNOME D-CT Allergies and Adverse Reactions Allergy Substance Reaction Severity Start Date Concern Status Co de Code System No Known Drug Allergies Active 987923404 SNOMED-CT Plan of Treatment No Data Found Encounters Encounter Diagnosis Start Date Code Code Sys tem Vomiting, unspecified 01/06/2024 SNOMED -CT Personal Care Team Section Performer Name Performer Role Active Date Inactive Da te
--- OUTSIDE RECORDS SUMMARY | 2024-02-06 13:44 | XMS_ITS | Encounter Summary ---
Author Organization [facility] Address [address] [place] [address] Care Team Providers Care Casting Machine Set Up Operator Name Role Phone Unavailable Primary Care Provider Unavailabl e Encounter Details Date Type Department Care Team (Late st Contact Info) Description 12/22/2005 11:00 EDT Hospital Encounter [facility] - Maple conversion [address] [place] [address] Fermin Lovett MD Social History Tobacco Use Types Packs/Day Years Used Date Smoking Tobacco: Every Day Cigarettes 0.5 13.2 Started: 11/10/2010 Smokeless Tobacco: Never Comments:06/13/20 actively try ing to quit about 5-8 cigs/day Alcohol Use Standard Drinks/Week Comments Yes 0 (1 standard drink = 0.6 oz pur e alcohol) rarely C Utilities Answer Date Recorded In the past 12 months has [employer], gas, oil, or water [employer] threatened to shut off services in [...] any time in the past 12 m [facility], were you homeless or living in [...] Visit [facility] Adult Primary Care - [address] 122141 Carrington Calderon MD [address] [phone] 02/27/2024 8:30 EDT Telemedicine [facility] Sleep Program - [address] 691971 Dwight Colbert [address] [place] [address] [phone] 02/29/2024 10:30 EDT Appointment [facility] Radiology Nuclear Medicine and PET [address] [phone] 02/29/2024 14:30 EDT Appointment [facility] Radiology Nuclear Medicine and PET [address] [id number] 03/01/2024 8:00 EDT Appointment [facility] Radiology Nuclear Medicine and PET [address] 765281 03/01/2024 9:30 EDT Appointment [facility] Radiology Nuclear Medicine and PET [address] [phone] documented as of this encounter Visit Diagnoses Not on filedocumented in this encounter Additional Health Concerns Infection Onset Date Last Indicated Resolved Time R/O COVID-19 08/04/2020 08/04/2020 08/04/2020 11:4 0 EST documented as of this encounter
--- OUTSIDE RECORDS SUMMARY | 2024-02-06 13:44 | XMS_ITS | Encounter Summary ---
Author Organization [facility] Address [address] [place] [address] Care Team Providers Care Net Developer With Wcf Name Role Phone Jasmin Jara Primary Care Provider Unavail Trinity Wilson MD Primary Care Provider [phone] Encounter Details Date Type Department Care Team (Late st Contact Info) Description 04/02/2004 Results Only [facility] Family Medicine - [address] [address] Mervin Arevalo MD [address] [place] [address] [phone] Social History Tobacco Use Types [...] [facility] Adult Primary Care - [address] 236711 Carrington Calderon MD [address] [place] [address] [phone] 02/27/2024 8:30 EDT Telemedicine [facility] Sleep Program - [address] [phone] 69 Dwight Colbert [address] [place] [address] 02/29/2024 10:30 ED[facility] Rad[facility] Nuclear Medicine and PET - [address] [address] 02/29/2024 14:30 EDT [facility] Radiology Nuclear Medicine and PET - [address] [address] 03/01/2024 8:00 EDT Appointment [facility] Radiology Nuclear Medicine and PET [address] 118311 03/01/2024 9:30 EDT Appointment [facility] Radiology Nuclear Medicine and PET [address] [address] documented as of this encounter Procedures Procedure Name Priority Date/Time Associated Diagnosis Comments N. GONORRHOEAE AMPLIFIED PROBE Routine 04/02/2004 15:58 EDT ZZCHLAMYDIA TRACHOMATIS AMPLIFIED PROBE Routine 04/02/2004 15:58 EDT CYTOPATHOLOGY Routine 04/02/2004 0:00 EDT documented in this encounter Results * N. GONORRHOEAE AMPLIFIED PROBE (04/02/2004 15:58 EDT) Result No Neisseria gonorrhoeae DNA detected by supplies packer mediated amplification. [facility] Report Status Final [id number] [facility] Specimen Description [facility] 04/02/2004 15:5 8 EDT 04/02/2004 22:22 EDT Mervin Arevalo MD MICROBIOLOGY - GENER AL ORDERABLES [facility] [address] [place] [address] * CHLAMYDIA TRACHOMATIS AMPLIFIED PROBE (04/02/2004 15:58 EDT) Specimen Description [facility] Result No Chlamydia trachomatis DNA detected by supplies packer mediated amplification. [facility] Report Status Final [id number] [facility] 04/02/2004 15:5 8 EDT 04/02/2004 22:21 EDT Mervin Arevalo MD MICROBIOLOGY - GENER AL ORDERABLES [facility] [address] [place] [address] * CYTOPATHOLOGY (04/02/2004 0:00 EDT) Pathology Report: CYTOPATHOLOGY REPORT Reports generated via electronic interface contain original data; however they are lacking the format of the original report. Caution should be taken when reading/interpreti ng unformatted reports. Name: ? CRISTY DEL VALLE ? Accession #: ? [id number] : ? 1985 (Age: 19) ??F ?Collect [...] Lesion or Malignancy INTERPRETATION ? Shift in canids present suggestive of bacterial vaginosis. ? Document reviewed and electronically signed by: ? DORYS Croft(ASCP) ? Report Date: ??04/09/2004 10:01 End of Report [facility] 04/02/2004 04/06/2004 Mervin Arevalo MD PATHOLOGY ORDERABLES Performing Organization Address City/State/[facility] Co de Phone Number [facility] [address] [place] [address] documented in this encounter Visit Diagnoses Not on filedocumented in this encounter Care Teams Net Developer With Wcf Relationship Specialty Start Date End Date Jasmin Jara PA PCP - General 10/06/09 05/09/10 Trinity Samaniego MD [address] [place] [phone] PCP - General 09/16/09 10/05/09 documented as of this encounter
--- OUTSIDE RECORDS SUMMARY | 2024-02-06 13:44 | XMS_ITS | Encounter Summary ---
Author Organization [facility] Address [address] [place] [address] Care Team Providers Care Billboard Poster Helper Name Role Phone Unavailable Primary Care Provider Unavailabl e Encounter Details Date Type Department Care Team (Late st Contact Info) Description 05/27/2006 9:45 EST Hospital Encounter [facility] - Maple conversion [address] [place] [address] Fermin Lovett MD Social History Tobacco Use Types Packs/Day Years Used Date Smoking Tobacco: Every Day Cigarettes 0.5 13.2 Started: 11/10/2010 Smokeless Tobacco: Never Comments:06/13/20 actively try ing to quit about 5-8 cigs/day Alcohol Use Standard Drinks/Week Comments Yes 0 (1 standard drink = 0.6 oz pur e alcohol) rarely C Utilities Answer Date Recorded In the past 12 months has [employer], gas, oil, or water company threatened to [...] [facility] - [address] [phone] Carrington Calderon MD [address] [phone] 02/27/2024 8:30 EDT Telemedicine [facility] Sleep Program - [address] 174431 Dwight Colbert [address] [place] [address] [phone] 02/29/2024 10:[address] [facility] Radiology Nuclear Medicine and PET [address] 529771 02/29/2024 14:[address] [facility] Radiology Nuclear Medicine and PET [address] 854261 03/01/2024 8:[address] [facility] Radiology Nuclear Medicine and PET [address] 400121 03/01/2024 9:[address] [facility] Radiology Nuclear Medicine and PET [address] [phone] documented as of this encounter Visit Diagnoses Not on filedocumented in this encounter Additional Health Concerns Infection Onset Date Last Indicated Resolved Time R/O COVID-19 08/04/2020 08/04/2020 08/04/2020 11:4 0 EST documented as of this encounter
--- OUTSIDE RECORDS SUMMARY | 2024-02-06 13:44 | XMS_ITS | Encounter Summary ---
Author Organization [facility] Address [address] [place] [address] Care Team Providers Care Medical Billing Coordinator Name Role Phone Unavailable Primary Care Provider Unavailabl e Encounter Details Date Type Department Care Team (Late st Contact Info) Description 01/26/2004 12:26 EDT Hospital Encounter [address] [address] Samira Fong MD [address] [place] [phone] Social History Tobacco Use Types Packs/Day Years Used Date Smoking Tobacco: Every Day Cigarettes 0.5 13.2 Started: 11/10/2010 Smokeless Tobacco: Never Comments:06/13/20 actively try ing to quit about 5-8 cigs/day Alcohol Use Standard Drinks/Week Comments Yes 0 (1 standard drink = 0.6 oz pur e alcohol) rarely [facility] Utilities Answer Date Recorded In the past 12 months has [employer], gas, oil, or water [employer] threatened to shut off services in your [...] any time in the past 12 m [facility], were you homeless or living in [...] [facility] Adult Primary Care - [address] 373251 Carrington Calderon MD [address] [phone] 02/27/2024 8:30 EDT Telemedicine [facility] Sleep Program - [address] [phone] Dwight Colbert [address] [place] [address] [phone] 02/29/2024 10:30 EDT Appointment [facility] Radiology Nuclear Medicine and PET [address] [phone] 02/29/2024 14:30 EDT Appointment [facility] Radiology Nuclear Medicine and PET - [address] [phone] 03/01/2024 8:00 EDT Appointment [facility] Radiology Nuclear Medicine and PET [address] [phone] 03/01/2024 9:30 EDT Appointment [facility] Radiology Nuclear Medicine and PET [address] [phone] documented as of this encounter Visit Diagnoses Not on filedocumented in this encounter Additional Health Concerns Infection Onset Date Last Indicated Resolved Time R/O COVID-19 08/04/2020 08/04/2020 08/04/2020 11:4 0 EST documented as of this encounter
--- OUTSIDE RECORDS SUMMARY | 2024-02-06 13:44 | XMS_ITS | Encounter Summary ---
Author Organization [facility] Address [address] [place] [address] Care Team Providers Care Faucet Polisher Name Role Phone Unavailable Primary Care Provider Unavailabl e Encounter Details Date Type Department Care Team (Latest Contact Info) Description 10/11/2006 10:03 EDT - 10/11/2006 11:59 EDT Hospital Encounter [facility]- [address] [address] Fermin Lovett MD Discharge Disposition: Auto Discharge [...] [facility] Adult Primary Care - [address] [phone] Carrington Calderon MD [address] [phone] 02/27/2024 8:30 EDT Telemedicine [facility] Sleep Program - [address] [address] Dwight Colbert [address] [place], [place] 384451 02/29/2024 10:30 EDT Appointment [facility] Radiology Nuclear Medicine and PET [address] [id number] 02/29/2024 14:30 EDT Appointment [facility] Radiology Nuclear Medicine and PET [address] [phone] 03/01/2024 8:00 EDT Appointment [facility] Radiology Nuclear Medicine and PET [address] [phone] 03/01/2024 9:30 EDT Appointment [facility] Radiology Nuclear Medicine and PET [address] [phone] documented as of this encounter Procedures Procedure [...]
--- OUTSIDE RECORDS SUMMARY | 2024-02-06 13:44 | XMS_ITS | Encounter Summary ---
Author Organization [facility] Address [address] [place] [address] Care Team Providers Care Rotary Shear Worker Helper Name Role Phone Unavailable Primary Care Provider Unavailabl e Encounter Details Date Type Department Care Team (Latest Contact Info) Description 04/02/2004 17:44 EDT Hospital Encounter [facility] [address] [place] [address] Rigo Rosenbaum MD [address] [place] [phone] Discharge Disposition: Auto Discharge Social History [...] [facility] Adult Primary Care - [address] [phone] Carrington Calderon MD [address] [phone] 02/27/2024 8:30 EDT Telemedicine [facility] Sleep Program - [address] [phone] Dwight Colbert [address] [place] [address] 02/29/2024 10:30 EDT Appointment [facility] Radiology Nuclear Medicine and PET - [address] [phone] 02/29/2024 14:30 EDT Appointment [facility] Radiology Nuclear Medicine and PET - [address] [phone] 03/01/2024 8:00 EDT Appointment [facility] Radiology Nuclear Medicine and PET - [address] [phone] 03/01/2024 9:30 EDT [facility] Radiology Nuclear Medicine and PET - [address] [phone] documented as of this encounter Visit Diagnoses Not on filedocumented in this encounter
--- OUTSIDE RECORDS SUMMARY | 2024-02-06 13:44 | XMS_ITS | Encounter Summary ---
Author Organization [facility] Address [address] [place] [address] Care Team Providers Care Business Project Analyst Name Role Phone Unavailable Primary Care Provider Unavailabl e Encounter Details Date Type Department Care Team (Late st Contact Info) Description 04/11/2004 Office Visit [facility] - Maple conversion [address] [place] [address] Josh Coelho, PA-C 111 [facility], Level 1 [place] [address] Social History Tobacco Use Types Packs/Day Years [...] use. Arrived by private vehicle. --12:27 Manda oLo R.N. NURSING PROGRESS NOTES Progress Clean catch [...] Discharge instructions reviewed with the patient and linoleum printer. Warnings reviewed. Reviewed medication. Treatments reviewed. Reviewed referrals. Patient and linoleum printer verbalized understanding. The patient was discharged home and accompanied by linoleum printer. The patient left the Emergency Department ambulatory and via private vehicle. Patient has no belongings. --15:23 Rob Gould R.N., R.N. Locked/Released at 04/11/2004 23:18 by Fermin Millan R.N. documented in this encounter Plan of Treatment Upcoming Encounters Date Type Department Care Team (Late st Contact Info) Description 02/21/2024 9:45 EDT Office Visit [facility] Adult Primary Care - [address] [phone] Carrington Calderon MD [address] [phone] 02/27/2024 8:30 EDT Telemedicine [facility] Sleep Program - [address] 611101 Dwight Colbert [address] [place] [address] 559761 02/29/2024 10:[address] [facility] Radiology Nuclear Medicine and PET - [address] 292011 02/29/2024 14:[address] [facility] Radiology Nuclear Medicine and PET [address] 094771 03/01/2024 8:[address] [facility] Radiology Nuclear Medicine and PET [address] 476551 03/01/2024 9:[address] [facility] Radiology Nuclear Medicine and PET [address] 203011 documented as of this encounter Visit Diagnoses Not on filedocumented in this encounter
--- OUTSIDE RECORDS SUMMARY | 2024-02-06 13:44 | XMS_ITS | Encounter Summary ---
Author Organization [facility] Address [address] [place] [address] Care Team Providers Care Water Conservationist Name Role Phone Unavailable Primary Care Provider Unavailabl e Encounter Details Date Type Department Care Team (Latest Contact Info) Description 06/22/2006 14:50 EST Hospital Encounter [facility] - Other [address] [place] [address] Broderick Ross MD Discharge Disposition: Auto Discharge [...] [facility] Adult Primary Care - [address] [address] Carrington Calderon MD [address] [phone] 02/27/2024 8:30 EDT Telemedicine [facility] Sleep Program - [address] 212861 Dwight Colbert [address] [place] [address] 02/29/2024 10:30 EDT [facility] Radiology Nuclear Medicine and PET - [address] [address] 02/29/2024 14:30 EDT [facility] Radiology Nuclear Medicine and PET - [address] [address] 03/01/2024 8:00 EDT [facility] Radiology Nuclear Medicine and PET - [address] [address] 03/01/2024 9:30 EDT Appointment [facility] Radiology Nuclear Medicine and PET - [address] [address] documented as of this encounter Visit Diagnoses Not on filedocumented in this encounter
--- OUTSIDE RECORDS SUMMARY | 2024-02-06 13:44 | XMS_ITS | Encounter Summary ---
Author Organization [facility] Address [address] [place] [address] Care Team Providers Care Claims Representative Name Role Phone Unavailable Primary Care Provider Unavailabl e Encounter Details Date Type Department Care Team (Late st Contact Info) Description 01/27/2004 Office Visit [facility] - Maple conversion [address] [place] [address] Samira Fong MD [address] [place] [address] Social History Tobacco Use Types Packs/Day Years [...] SOCIAL HISTORY Nonsmoker. FAMILY HISTORY works at [employer] ADDITIONAL NOTES The nursing notes have been [...] hot water. Pain level now: 11/13. Treatment PAVER: ice and (arrives with dressing on right [...] The patientwas discharged home and accompanied by wildlife photographer. The patient left the Emergency Department ambulatory and via private vehicle. Departure time: 14:31 --1431 Rob Cardoso R.N. Locked/Released at 01/26/2004 14:31 by Lara Sparks R.N. documented in this encounter Plan of Treatment Upcoming Encounters Date Type Department Care Team (Late st Contact Info) Description 02/21/2024 9:45 EDT Office Visit [facility] Adult Primary Care - [address] 308561 Carrington Calderon MD [address] [phone] 02/27/2024 8:30 EDT Telemedicine [facility] Sleep Program - [address] 174981 Dwight Colbert [address] [place] [address] [phone] 02/29/2024 10:30 EDT Appointment [facility] Radiology Nuclear Medicine and PET [address] 547131 02/29/2024 14:30 EDT Appointment [facility] Radiology Nuclear Medicine and PET - [address] [address] 03/01/2024 8:00 EDT Appointment [facility] Radiology Nuclear Medicine and PET [address] [address] 03/01/2024 9:30 EDT Appointment [facility] Radiology Nuclear Medicine and PET [address] [address] documented as of this encounter Visit Diagnoses Not on filedocumented in this encounter
--- OUTSIDE RECORDS SUMMARY | 2024-02-06 13:44 | XMS_ITS | Encounter Summary ---
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 For hobbies, she [...] 5 feet 4 inches and her weight [id number]. On examination of the patients anterior chest, [...] that the procedure was done as a [id number] admission with general anesthesia and that the [...] MD - Erich Ross MD A - [facility] Job ID: [id number] Document ID: [id number] cc: JUNE Plata MD documented in this encounter Plan of Treatment Upcoming Encounters Date Type Department Care Team (Late st Contact Info) Description 02/21/2024 9:45 EDT Office Visit [facility] Adult Primary Care - [address] [address] Carrington Calderon MD [address] [phone] 02/27/2024 8:30 EDT Telemedicine [facility] Sleep Program - [address] [address] ColbertDwight garner [address] [place] [address] [phone] 02/29/2024 10:30 EDT [facility] Radiology Nuclear Medicine and PET - [address] 964001 02/29/2024 14:30 EDT [facility]ment [facility] Radiology Nuclear Medicine and PET - [address] 344951 03/01/2024 8:00 EDT [facility]ment [facility] Radiology Nuclear Medicine and PET - [address] [phone] 03/01/2024 9:30 EDT [facility]ment [facility] Radiology Nuclear Medicine and PET - [address] [phone] documented as of this encounter Visit Diagnoses Not on filedocumented in this encounter
--- OUTSIDE RECORDS SUMMARY | 2024-02-06 13:44 | XMS_ITS | Encounter Summary ---
Author Organization [facility] Address [address] [place] [address] Care Team Providers Care Shingles Roofer Name Role Phone Unavailable Primary Care Provider Unavailabl e Encounter Details Date Type Department Care Team (Late st Contact Info) Description 06/13/2004 Office Visit [facility] - Maple conversion [address] [place] [address] Doris Moreno MD 111 [facility], Level [address] [place] [phone] Social History Tobacco Use Types Packs/Day Years [...] patient was discharged home and accompanied by senior loan officer. The patient left the Emergency Department ambulatory and via private vehicle. --17:31 Rob Echeverria R.N., E.MCatherine Mars R.N. Locked/Released at 06/13/2004 19:11 by Norma Evans R.N. documented in this encounter Plan of Treatment Upcoming Encounters Date Type Department Care Team (Late st Contact Info) Description 02/21/2024 9:45 EDT Office Visit [facility] Adult Primary Care - [address] [phone] Carrington Calderon MD 1 [facility] Level 1 [place] [phone] 02/27/2024 8:30 EDT Telemedicine [facility] Sleep Program - [address] [place] [address] Dwight Colbert [address] [place] [address] 02/29/2024 10:30 EDT Appointment [facility] Radiology Nuclear Medicine and PET - [address] [address] 02/29/2024 14:30 EDT Appointment [facility] Radiology Nuclear Medicine and PET - [address] [phone] 03/01/2024 8:00 EDT Appointment [facility] Radiology Nuclear Medicine and PET - [address] [phone] 03/01/2024 9:30 EDT Appointment [facility] Radiology Nuclear Medicine and PET [address] [address] documented as of this encounter Visit Diagnoses Not on filedocumented in this encounter
--- OUTSIDE RECORDS SUMMARY | 2024-02-06 13:44 | XMS_ITS | Encounter Summary ---
Author Organization [facility] Address [address] [place] [address] Care Team Providers Care English And Reading Instructor Name Role Phone Unavailable Primary Care Provider Unavailabl e Encounter Details Date Type Department Care Team (Late st Contact Info) Description 04/29/2006 8:02 [facility] Hospital Encounter [facility] - Maple conversion [address] [place] [address] Fermin Trejo MD Kehoe, Stephanie S [address] [place] [phone] Social History Tobacco Use Types Packs/Day Years Used Date Smoking Tobacco: Every Day Cigarettes 0.5 13.2 Started: 11/10/2010 Smokeless Tobacco: Never Comments:06/13/20 actively try ing to quit about 5-8 cigs/day Alcohol Use Standard Drinks/Week Comments Yes 0 (1 standard drink = 0.6 oz pur e alcohol) rarely [facility] Utilities Answer Date Recorded In the past 12 months has [employer], gas, oil, or water [employer] threatened to shut off services in your [...] any time in the past [facility], were you homeless or living in [...] [facility] - [address] [phone] Carrington Calderon MD [address] [phone] 02/27/2024 8:30 EDT Telemedicine [facility] Sleep Program - [address] 655111 Dwight Colbert [address] [place] [phone] 02/29/2024 10:30 EDT Appointment [facility] Radiology Nuclear Medicine and PET [address] [phone] 02/29/2024 14:30 EDT Appointment [facility] Radiology Nuclear Medicine and PET - [address] [phone] 03/01/2024 8:00 EDT Appointment [facility] Radiology Nuclear Medicine and PET [address] [phone] 03/01/2024 9:30 EDT Appointment [facility] Radiology Nuclear Medicine and PET [address] [phone] documented as of this encounter Visit Diagnoses Not on filedocumented in this encounter Additional Health Concerns Infection Onset Date Last Indicated Resolved Time R/O COVID-19 08/04/2020 08/04/2020 08/04/2020 11:4 0 EST documented as of this encounter
--- OUTSIDE RECORDS SUMMARY | 2024-02-06 13:44 | XMS_ITS | Encounter Summary ---
Author Organization [facility] Address [address] [place] [address] Care Team Providers Care Wig Comber Name Role Phone Unavailable Primary Care Provider Unavailabl e Encounter Details Date Type Department Care Team (Late st Contact Info) Description 08/23/2007 Office Visit [facility] [place] - Maple conversion [address] [place] [address] Naomi Graham PA Social History Tobacco Use [...] Your Current Medications: Continue current medications. Follow-up: [facility], , [address] [place] [address], [address]. Follow up as needed. PAYAL RODRIGUEZ, , [facility], [address] [place] [address], [id number]. Follow up. Call for the next available appointment. call dr shahid [phone] and follow up in 2-3 weeks. Understanding [...] call you tomorrow to make an appointment ([phone]) . (Electronically signed by Aubrey Diana, 08/24/2007 [...] --1023 Antonella Reynaga R.N.. NURSING PROGRESS NOTES (Foreman/Project Manager at bedside speaking w/ pt. Warm blanket [...] 113 / 65. HR: 120. RR: 20. ([place] to bedside. Pt waiting for d/c.). --2016 [...] Patient verbalized understanding. Written instructions provided in Welsh. The patient was accompanied by routing machine operator. The patient left the Emergency Department ambulatory. --2102 Rosa Handley R.N.. Rob Devine R.N. Student Nurse Locked/Released at 08/24/2007 15:04 by Silvia Shepard R.N. documented in this encounter Plan of Treatment Upcoming Encounters Date Type Department Care Team (Late st Contact Info) Description 02/21/2024 9:45 EDT Office Visit [facility] [place] Adult Primary Care - [address] [phone] Carrington Calderon MD 1 [facility] 1 [place] [address] 02/27/2024 8:30 EDT Telemedicine [facility] Sleep Program - [address] [phone] Dwight Colbert [address] [place] [phone] 02/29/2024 10:30 EDT Appointment [facility] Radiology Nuclear Medicine and PET - [address] [id number] 02/29/2024 14:30 EDT Appointment [facility] Radiology Nuclear Medicine and PET - [address] [id number] 03/01/2024 8:00 EDT Appointment [facility] Radiology Nuclear Medicine and PET - [address] [id number] 03/01/2024 9:30 EDT Appointment [facility] Radiology Nuclear Medicine and PET - [address] [id number] documented as of this encounter Visit Diagnoses Not on filedocumented in this encounter
--- OUTSIDE RECORDS SUMMARY | 2024-02-06 13:44 | XMS_ITS | Encounter Summary ---
Author Organization [facility] Address [address] [place] [address] Care Team Providers Care Assistant Site Manager Name Role Phone Unavailable Primary Care Provider Unavailabl e Encounter Details Date Type Department Care Team (Late st Contact Info) Description 03/30/2006 Before PRISM Converted Visit (Maple) [facility] - Maple conversion [address] [place] [address] Angélica Hernandez CFNP Social History Tobacco Use Types Packs/Day Years Used Date Smoking Tobacco: Never Assessed Sex and Gender Information Value Date Recorded Sex Assigned at Not on file Gender Identity Female 06/18/2019 8:54 EST Sexual Orientation Not on file documented as of this encounter Progress Notes * Ra, Conv Obiee Report Developer - 05/31/2009 0141 EST DIVISION OF SURGICAL ONCOLOGY - [facility] March 30, 2006 Broderick Ross M.D. [facility] Plastic and Reconstructive Surgery [address] [place] [address], [address] [place] [phone] Dear Doctor Vandana: Thank you in advance [...] - JUNE Plata Bhupendra addison Job ID: [id number] Document ID: [id number] cc: Broderick Ross MD JUNE Calzada Bhupendra addison Job ID: [id number] Document ID: [id number] cc: Broderick Ross MD * Dayron Knapp Obiee Report Developer - 05/31/2009 0140 EST OF SURGICAL ONCOLOGY - BREAST [facility] PROGRESS/FOLLOWUP NOTE - 03/30/2006 P: [...] Ultrasound done in radiology and by Dr. Morneo in [facility] did not [...] from the paternal side. Ethnic background is [place] and [place]. POSTMASTER history: Menarche at age 11. She is [...] - JUNE Plata Bhupendra addison Job ID: [id number] Document ID: [id number] cc: Kamini Gore MD JUNE Calzada Bhupendra addison Job ID: [id number] Document ID: [id number] cc: Kamini Gore MD documented in this encounter Plan of Treatment Upcoming Encounters Date Type Department Care Team (Late st Contact Info) Description 02/21/2024 9:45 EDT Office Visit [facility] Adult Primary Care - [address] [phone] Carrington Calderon MD [address] [place] [address] 1 [place] [phone] 02/27/2024 8:30 EDT Telemedicine [facility] Sleep Program - [address] [place], [place] 136991 Dwight Colbert [address] [place] [address] 02/29/2024 10:30 EDT [facility] Radiology Nuclear Medicine and PET - [address] [id number] 02/29/2024 14:30 EDT Appointment [facility] Radiology Nuclear Medicine and PET - [address] [id number] 03/01/2024 8:00 EDT Appointment [facility] Radiology Nuclear Medicine and PET - [address] [phone] 03/01/2024 9:30 EDT Appointment [facility] Radiology Nuclear Medicine and PET - [address] [phone] documented as of this encounter Visit Diagnoses Not on filedocumented in this encounter
--- OUTSIDE RECORDS SUMMARY | 2024-02-06 13:44 | XMS_ITS | Encounter Summary ---
Author Organization [facility] Address [address] [place] [address] Care Team Providers Care Chronic Manager Name Role Phone Unavailable Primary Care Provider Unavailabl e Encounter Details Date Type Department Care Team (Late st Contact Info) Description 09/27/2005 9:47 EDT Hospital Encounter [facility] [address] [place] [address] Oscar Moreno MD MSc [address] [place] [phone] Social History Tobacco Use Types Packs/Day Years Used Date Smoking Tobacco: Every Day Cigarettes 0.5 13.2 Started: 11/10/2010 Smokeless Tobacco: Never Comments:06/13/20 actively try ing to quit about 5-8 cigs/day Alcohol Use Standard Drinks/Week Comments Yes 0 (1 standard drink = 0.6 oz pur e alcohol) rarely [facility] Utilities Answer Date Recorded In the past 12 months has [employer], gas, oil, or water [employer] threatened to shut off services in your [...] [facility] Adult Primary Care - [address] [phone] Carrington Calderon MD [address] [phone] 02/27/2024 8:30 EDT Telemedicine [facility] Sleep Program - [address] [phone] Dwight Colbert [address] [place] [address] [phone] 02/29/2024 10:30 EDT Appointment [facility] Radiology Nuclear Medicine and PET [address] [phone] 02/29/2024 14:30 EDT Appointment [facility] Radiology Nuclear Medicine and PET [address] [phone] 03/01/2024 8:00 EDT Appointment [facility] Radiology Nuclear Medicine and PET [address] [phone] 03/01/2024 9:30 EDT Appointment [facility] Radiology Nuclear Medicine and PET [address] [phone] documented as of this encounter Visit Diagnoses Not on filedocumented in this encounter Additional Health Concerns Infection Onset Date Last Indicated Resolved Time R/O COVID-19 08/04/2020 08/04/2020 08/04/2020 11:4 0 EST documented as of this encounter
--- OUTSIDE RECORDS SUMMARY | 2024-02-06 13:44 | XMS_ITS | Encounter Summary ---
Author Organization [facility] Address [address] [place] [address] Care Team Providers Care Solution Developer Name Role Phone Unavailable Primary Care Provider Unavailabl e Encounter Details Date Type Department Care Team (Latest Contact Info) Description 01/24/2006 14:06 EDT Hospital Encounter [facility] - Maple conversion [address] [place] [address] Felix Merritt III, MD 1 [place], [place] [address] Discharge Disposition: Auto Discharge Social History Tobacco [...] [facility] Adult Primary Care - [address] 104141 Carrington Calderon MD [address] [phone] 02/27/2024 8:30 EDT Telemedicine [facility] Sleep Program - [address] [address] Dwight Burrell [address] [place], [place] [address] 02/29/2024 10:30 EDT [facility] and PET [address] [id number] 02/29/2024 14:30 EDT Appointment [facility] Radiology Nuclear Medicine and PET [address] [phone] 03/01/2024 8:00 EDT Appointment [facility] Radiology Nuclear Medicine and PET [address] [id number] 03/01/2024 9:30 EDT Appointment [facility] Radiology Nuclear Medicine and PET [address] [id number] documented as of this encounter Procedures Procedure [...] GA S ORDERABLES [facility] [address] [place] [address] * (ABNORMAL) COMPREHENSIVE METABOLIC PANEL (01/24/2006 16:03 [...] GA S ORDERABLES [facility] [address] [place] [address] * (ABNORMAL) HEMAGRAM (01/24/2006 16:03 EDT) WBC [...] & PF4 ORD ERABLES Performing Organization Address City/State/[facility] Co de Phone Number [facility] [address] [place] [address] documented in this encounter Visit Diagnoses Not on filedocumented in this encounter
--- OUTSIDE RECORDS SUMMARY | 2024-02-06 13:44 | XMS_ITS | Encounter Summary ---
Author Organization [facility] Address [address] [place] [address] Care Team Providers Care Plywood Factory Worker Name Role Phone Unavailable Primary Care Provider Unavailabl e Encounter Details Date Type Department Care Team (Late st Contact Info) Description 09/21/2005 7:24 EDT - 09/21/2005 11:59 EDT Hospital Encounter [address] [address] Nathaniel Argueta MD 111 [facility] 2 [place] [phone] Discharge Disposition: Auto Discharge Social History Tobacco [...] [facility] - [address] 023901 Carrington Calderon MD [address] [place] [phone] 02/27/2024 8:30 EDT Telemedicine [facility] Sleep Program - S [address] [address] Dwight Colbert [address] [place] [address] 02/29/2024 10:30 EDT Appointment [facility] Radiology Nuclear Medicine and PET - [address] [id number] 02/29/2024 14:30 EDT Appointment [facility] Radiology Nuclear Medicine and PET - [address] [address] 03/01/2024 8:00 EDT Appointment [facility] Radiology Nuclear Medicine and PET [address] [phone] 03/01/2024 9:30 EDT Appointment [facility] Radiology Nuclear Medicine and PET [address] [phone] documented as of this encounter Procedures Procedure [...] were discussed with the patient by the cash register mechanic at the time of the exam. OVERALL [...] were discussed with the patient by the cash register mechanic at the time of the exam. OVERALL ASSESSMENT - NEGATIVE END OF IMPRESSION Nathaniel Argueta MD IMG US ORDERABLES documented in this encounter Visit Diagnoses Not on filedocumented in this encounter
--- OUTSIDE RECORDS SUMMARY | 2024-02-06 13:44 | XMS_ITS | Encounter Summary ---
Author Organization [facility] Address [address] [place] [address] Care Team Providers Care Director Cloud Transformation Name Role Phone Jasmin Jara Primary Care Provider Unavail Trinity Wilson MD Primary Care Provider Encounter Details Date Type Department Care Team (Late st Contact Info) Description 08/19/2004 Results Only [facility] Family Medicine - [address] [address] Rosalio Bueno MD [address] [place] [phone] Social History Tobacco Use Types Packs/Day Years [...] Visit [facility] Adult Primary Care - [address] 999051 Carrington Calderon MD [address] [place] [phone] 02/27/2024 8:30 EDT Telemedicine [facility] Sleep Program - [address] [phone] Dwight Colbert [address] [place] [address] 02/29/2024 10:30 EDT Appointment [facility] Radiology Nuclear Medicine and PET [address] [address] 02/29/2024 14:30 EDT Appointment [facility] Radiology Nuclear Medicine and PET [address] [id number] 03/01/2024 8:00 EDT Appointment [facility] Radiology Nuclear Medicine and PET [address] [phone] 03/01/2024 9:30 EDT Appointment [facility] Radiology Nuclear [facility] and PET [address] [phone] documented as of this encounter Procedures Procedure [...] GA S ORDERABLES [facility] [address] [place] [address] * (ABNORMAL) HEMAGRAM (08/19/2004 15:37 EST) WBC 14.09(H) 4.0 - 12.4 K/cmm [facility] RBC 4.67 3.86 - 5.04 M/cmm [facility] Hemoglobin 14.0 11.6 - 15.2 gm/dl [facility] HCT 40.3 34.9 - 44.4 % [facility] MCV 86 81 - 98 [...] PF4 ORD ERABLES [facility] [address] [place] [address] documented in this encounter Visit Diagnoses Not on filedocumented in this encounter Care Teams Director Cloud Transformation Relationship Specialty Start Date End Date Jasmin Jara PA PCP - General 10/06/09 05/09/10 Trinity Samaniego MD [address] [place] [phone] PCP - General 09/16/09 10/05/09 documented as of this encounter
--- OUTSIDE RECORDS SUMMARY | 2024-02-06 13:44 | XMS_ITS | Encounter Summary ---
Author Organization [facility] Address [address] [place] [address] Care Team Providers Care Cake Stripper Name Role Phone Unavailable Primary Care Provider Unavailabl e Encounter Details Date Type Department Care Team (Late st Contact Info) Description 09/27/2006 9:23 EDT Hospital Encounter [facility] - Maple conversion [address] [place] [address] Fermin Lovett MD Social History Tobacco Use Types Packs/Day Years Used Date Smoking Tobacco: Every Day Cigarettes 0.5 13.2 Started: 11/10/2010 Smokeless Tobacco: Never Comments:06/13/20 actively try ing to quit about 5-8 cigs/day Alcohol Use Standard Drinks/Week Comments Yes 0 (1 standard drink = 0.6 oz pur e alcohol) rarely C Utilities Answer Date Recorded In the past 12 months has [employer], gas, oil, or water [employer] threatened to shut off services in your [...] [facility] - [address] [phone] Carrington Calderon MD [address] [phone] 02/27/2024 8:30 EDT Telemedicine [facility] Sleep Program - [address] 168131 Dwight Colbert [address] [place] [phone] 02/29/2024 10:30 EDT Appointment [facility] Radiology Nuclear Medicine and PET [address] [phone] 02/29/2024 14:30 EDT Appointment [facility] Radiology Nuclear Medicine and PET [address] [phone] 03/01/2024 8:00 EDT Appointment [facility] Radiology Nuclear Medicine and PET [address] [phone] 03/01/2024 9:30 EDT Appointment [facility] Radiology Nuclear Medicine and PET [address] [phone] documented as of this encounter Procedures Procedure Name Priority Date/Time Associated Diagnosis Comments SED RATE Routine 09/27/2006 10:36 EDT COMPLETE BLOOD COUNT AND DIFFERENTIAL Routine 09/27/2006 10:36 EDT COMPREHENSIVE METABOLIC PANEL (CMP) Routine 09/27/2006 10:36 EDT documented in this encounter Results * (ABNORMAL) SED. RATE:MARLYN (09/27/2006 10:36 EDT) Pathologist [facility] Sed. Rate Marlyn 47(H) 0 - 20 mm/hr [facility] Comment: Note: Sample greater than 4 hrs old (but less than 12 hrs) when tested. If refrigerated, sample is stable when tested within 12 hours of collection. 09/27/2006 10:3 6 EDT 09/27/2006 16:29 EDT Fermin Lovett MD HEMATOLOGY & P F4 ORDERABLES [facility] [address] [place] [address] * (ABNORMAL) COMPREHENSIVE METABOLIC PANEL (09/27/2006 10:36 EDT) Pathologist [facility] Potassium 4.3 3.5 - 5.0 mEq/L [facility] [...] OOD GAS ORDERABLES [facility] [address] [place] [address] * (ABNORMAL) HEMAGRAM AND DIFFERENTIAL (09/27/2006 10:36 [...] & DNA PROBE ORDERABLES Performing Organization Address City/State/[place] Co de Phone Number [facility] [address] [place] [address] documented in this encounter Visit Diagnoses Not on filedocumented in this encounter Additional Health Concerns Infection Onset Date Last Indicated Resolved Time R/O COVID-19 08/04/2020 08/04/2020 08/04/2020 11:4 0 EST documented as of this encounter
--- OUTSIDE RECORDS SUMMARY | 2024-02-06 13:44 | XMS_ITS | Encounter Summary ---
Author Organization [facility] Address [address] [place] [address] Care Team Providers Care Cell Tuber Machine Name Role Phone Unavailable Primary Care Provider Unavailabl e Encounter Details Date Type Department Care Team (Latest Contact Info) Description 08/23/2007 10:09 EDT - 08/23/2007 11:59 EDT Hospital Encounter [facility] Emergency Department - Main [place] [address] [place], [place] [phone] Emergency, MD Ekaterina Discharge Disposition: Home or [...] [facility] Adult Primary Care - [address] 985251 Carrington Calderon MD [address] [phone] 02/27/2024 8:[address] [facility] Sleep Program - [address] 305261 Dwight Colbert [address] [place], [place] [phone] 02/29/2024 10:30 EDT Appointment [facility] Radiology Nuclear Medicine and PET - [address] [id number] 02/29/2024 14:30 EDT Appointment [facility] Radiology Nuclear Medicine and PET - [address] [phone] 03/01/2024 8:00 EDT Appointment [facility] Radiology Nuclear Medicine and PET - [address] [phone] 03/01/2024 9:30 EDT Appointment [facility] Radiology Nuclear Medicine and PET [address] [phone] documented as of this encounter Procedures Procedure [...] BLOOD G ORDERABLES [facility] [address] [place] [address] * PHOSPHORUS (08/23/2007 14:50 EDT) Phosphorus 3.1 2.5 - 4.5 mg/dl [facility] 08/23/2007 14:5 0 EDT 08/23/2007 15:01 EDT Default Emergency MD CHEMISTRY & BLOOD G ORDERABLES Performing Organization Address [facility] de Phone Number [facility] [address] [place] [address] * MAGNESIUM (08/23/2007 14:50 EDT) Pathologist [facility] Magnesium 1.9 1.7 - 2.8 mg/dl [facility] 08/23/2007 14:5 0 EDT 08/23/2007 15:01 EDT Default Emergency MD CHEMISTRY & BLOOD G ORDERABLES Performing Organization Address [facility] de Phone Number [facility] [address] [place] [address] * ELECTROLYTES (08/23/2007 14:50 EDT) Pathologist [facility] Sodium 142 136 - 145 mEq/L [facility] Potassium 4.2 3.5 - 5.0 mEq/L [facility] Chloride 105 96 - 110 mEq/L [facility] CO2 25 24 - 32 mEq/L [facility] 08/23/2007 14:5 0 EDT 08/23/2007 15:01 EDT Default Emergency MD CHEMISTRY & BLOOD G ORDERABLES Performing Organization Address [facility] de Phone Number [facility] [address] [place] [address] * HOLD BLUE TOP (08/23/2007 14:50 EDT) Hold Blue Top Sample for coagulation will be discarded after 4 hours [facility] 08/23/2007 14:5 0 EDT 08/23/2007 15:01 EDT Default Emergency MD LAB INFO SERVICE AN D SUPPORT & PHONE RESULT Performing Organization Address [facility] Co de Phone Number [facility] [address] [place] [address] * FOLATE (08/23/2007 14:50 EDT) Pathologist [facility] Folate >24.0 ng/mL [facility] Comment: Deficient: ??Less than 3.4 ng/mL Indeterminate: ??3.4-5.4 ng/mL Normal: ??Greater than 5.4 ng/mL 08/23/2007 14:5 0 EDT 08/23/2007 15:01 EDT Default Emergency MD CHEMISTRY & BLOOD G ORDERABLES Performing Organization Address [facility] Co de Phone Number [facility] [address] [place] [address] * (ABNORMAL) CREATININE (08/23/2007 14:50 EDT) [facility] Creatinine 0.66(L) 0.7 - 1.5 mg/dl [facility] GFR, Calculated >60 ml/min/1.7 3m2 [facility] 08/23/2007 14:5 0 EDT 08/23/2007 15:01 EDT Default Emergency MD CHEMISTRY & BLOOD G ORDERABLES Performing Organization Address [facility] de Phone Number [facility] [address] [place] [address] * CK (08/23/2007 14:50 EDT) Pathologist [facility] CK 68 30 - 135 U/L [facility] 08/23/2007 14:5 0 EDT 08/23/2007 15:01 EDT Default Emergency MD CHEMISTRY & BLOOD G ORDERABLES Performing Organization Address [facility] Co de Phone Number [facility] [address] [place] [address] * (ABNORMAL) HEMAGRAM AND DIFFERENTIAL (08/23/2007 14:50 EDT) Pathologist [facility] WBC 11.97 4.0 - 12.4 K/cmm MICHAEL [...] PROB E ORDERABLES [facility] [address] [place] [address] * CALCIUM (08/23/2007 14:50 EDT) Calcium 10.0 8.5 - 10.5 mg/dl [facility] Calculated Calcium 10.0 8.5 - 10.5 mg/dl [facility] 08/23/2007 14:5 0 EDT 08/23/2007 15:01 EDT Default Emergency CHEMISTRY & BLOOD G ORDERABLES Performing Organization Address [facility] de Phone Number [facility] [address] [place] [address] * BUN (08/23/2007 14:50 EDT) BUN 12 10 - 26 mg/dl [facility] 08/23/2007 14:5 0 EDT 08/23/2007 15:01 EDT Default Emergency CHEMISTRY & BLOOD G ORDERABLES Performing Organization Address [facility] de Phone Number [facility] [address] [place] [address] documented in this encounter Visit Diagnoses Not on filedocumented in this encounter
--- OUTSIDE RECORDS SUMMARY | 2024-02-06 13:44 | XMS_ITS | Encounter Summary ---
Author Organization [facility] Address [address] [place] [address] Care Team Providers Care Powertrain Control Systems Engineer Name Role Phone Jasmin Jara Primary Care Provider Unavail able Encounter Details Date Type Department Care Team (Late st Contact Info) Description 10/20/2009 Abstract [facility] Plastic, Reconstructive & Cosmetic Surgery - [address], [address] [place] [address] Jasmin Jara PA Social History Tobacco Use [...] [facility] Adult Primary Care - [address] 658691 Carrington Calderon MD [address] [phone] 02/27/2024 8:30 EDT Telemedicine [facility] Sleep Program - [address] 800341 Dwight Colbert [address] [place], [place] 0[address]41 02/29/2024 10:30 EDT [facility] Radiology Nuclear Medicine and PET - [address] [address] 02/29/2024 14:30 EDT Appointment [facility] Radiology Nuclear Medicine and PET [address] [address] 03/01/2024 8:00 EDT Appointment [facility] Radiology Nuclear Medicine and PET [address] [address] 03/01/2024 9:30 EDT Appointment [facility] Radiology Nuclear Medicine and PET [address] [address] documented as of this encounter Visit Diagnoses Not on filedocumented in this encounter Care Teams Powertrain Control Systems Engineer Relationship Specialty Start Date End Date Jasmin Jara PA PCP - General 10/06/09 05/09/10 documented as of this encounter
--- OUTSIDE RECORDS SUMMARY | 2024-02-06 13:44 | XMS_ITS | Encounter Summary ---
Author Organization [facility] Address [address] [place] [address] Care Team Providers Care Chair Inspector And Leveler Name Role Phone Unavailable Primary Care Provider Unavailabl e Encounter Details Date Type Department Care Team (Late st Contact Info) Description 08/19/2004 16:02 [facility] Hospital Encounter [facility] - Other [address] [place] [address] Rosalio Bueno MD [address] [phone] Social History Tobacco Use Types Packs/Day Years Used Date Smoking Tobacco: Every Day Cigarettes 0.5 13.2 Started: 11/10/2010 Smokeless Tobacco: Never Comments:06/13/20 actively try ing to quit about 5-8 cigs/day Alcohol Use Standard Drinks/Week Comments Yes 0 (1 standard drink = 0.6 oz pur e alcohol) rarely C Utilities Answer Date Recorded In the past 12 months has [employer], gas, oil, or water [employer] threatened to shut off services in your [...] [facility] Adult Primary Care - [address] 084841 Carrington Calderon MD [address] [phone] 02/27/2024 8:30 EDT Telemedicine [facility] Sleep Program - [address] 096811 Dwight Colbert [address] [place] [address] [phone] 02/29/2024 10:30 EDT Appointment [facility] Radiology Nuclear Medicine and PET [address] [phone] 02/29/2024 14:30 EDT Appointment [facility] Radiology Nuclear Medicine and PET - [address] [phone] 03/01/2024 8:00 EDT Appointment [facility] Radiology Nuclear Medicine and PET [address] [phone] 03/01/2024 9:30 EDT Appointment [facility] Radiology Nuclear Medicine and PET [address] [phone] documented as of this encounter Visit Diagnoses Not on filedocumented in this encounter Additional Health Concerns Infection Onset Date Last Indicated Resolved Time R/O COVID-19 08/04/2020 08/04/2020 08/04/2020 11:4 0 EST documented as of this encounter
--- OUTSIDE RECORDS SUMMARY | 2024-02-06 13:44 | XMS_ITS | Encounter Summary ---
Author Organization [facility] Address [address] [place] [address] Care Team Providers Care Inbound Sales Advisor Name Role Phone Unavailable Primary Care Provider Unavailabl e Encounter Details Date Type Department Care Team (Latest Contact Info) Description 01/10/2006 10:03 EDT - 01/10/2006 11:59 EDT Hospital Encounter [facility] [address] [place], [place] [address] Myles Jackson Discharge Disposition: Auto Discharge Social [facility] - [address] [phone] Carrington Calderon MD [address] [phone] 02/27/2024 8:30 EDT Telemedicine [facility] Sleep Program - [address] [address] Dwight Colbert [address] [place], [place] [address] 02/29/2024 10:30 EDT Appointment [facility] Radiology Nuclear Medicine and PET - [address] [address] 02/29/2024 14:30 EDT Appointment [facility] Radiology Nuclear Medicine and PET [address] [address] 03/01/2024 8:00 EDT Appointment [facility] Radiology Nuclear Medicine and PET [address] [address] 03/01/2024 9:30 EDT Appointment [facility] Radiology Nuclear Medicine and PET [address] 159781 documented as of this encounter Procedures Procedure [...]
--- OUTSIDE RECORDS SUMMARY | 2024-02-06 13:44 | XMS_ITS | Encounter Summary ---
Author Organization [facility] Address [address] [place] [address] Care Team Providers Care Stage Setting Painter Apprentice Name Role Phone Unavailable Primary Care Provider Unavailabl e Encounter Details Date Type Department Care Team (Latest Contact Info) Description 06/13/2004 14:28 EST Hospital Encounter [facility] Emergency Department - Main [place] [address] [place], [place] 2580[address] Emergency, MD Ekaterina Discharge Disposition: Home or [...] [facility] - [address] 801991 Carrington Calderon MD [address] [phone] 02/27/2024 8:30 EDT Telemedicine [facility] Sleep Program - [address] [phone] Dwight Colbert [address] [place], [place] [address] 02/29/2024 10:30 EDT Appointment [facility] Radiology Nuclear Medicine and PET [facility] [address] [place], [place] [phone] 02/29/2024 14:30 EDT Appointment [facility] Radiology Nuclear Medicine and PET [address] [phone] 03/01/2024 8:00 EDT Appointment [facility] Radiology Nuclear Medicine and PET [address] [phone] 03/01/2024 9:30 EDT Appointment [facility] Radiology Nuclear Medicine and PET [address] [address] documented as of this encounter [...] & PHONE RESULT [facility] [address] [place] [address] * (ABNORMAL) HEMAGRAM AND DIFFERENTIAL (06/13/2004 15:19 [...] [facility] Co de Phone Number [facility] [address] [place] [address] documented in this encounter Visit Diagnoses Not on filedocumented in this encounter
--- OUTSIDE RECORDS SUMMARY | 2024-02-06 13:44 | XMS_ITS | Encounter Summary ---
Author Organization [facility] Address [address] [place] [address] Care Team Providers Care Acoustical Carpenter Name Role Phone Unavailable Primary Care Provider Unavailabl e Encounter Details Date Type Department Care Team (Late st Contact Info) Description 03/30/2006 7:53 EDT Hospital Encounter [facility] [address] [place] [address] Unknown, Provider, Social History Tobacco Use Types Packs/Day Years Used Date Smoking Tobacco: Every Day Cigarettes 0.5 13.2 Started: 11/10/2010 Smokeless Tobacco: Never Comments:06/13/20 actively try ing to quit about 5-8 cigs/day Alcohol Use Standard Drinks/Week Comments Yes 0 (1 standard drink = 0.6 oz pur e alcohol) rarely [facility] Utilities Answer Date Recorded In the past 12 months has [employer], [employer], oil, or water [employer] threatened to shut off services in your [...] [facility] - [address] 186961 Carrington Calderon MD [address] [phone] 02/27/2024 8:[address] [facility] Sleep Program - [address] [phone] Dwight Colbert [address] [place] [address] [phone] 02/29/2024 10:30 EDT Appointment [facility] Radiology Nuclear Medicine and PET [address] [phone] 02/29/2024 14:30 EDT Appointment [facility] Radiology Nuclear Medicine and PET [address] [phone] 03/01/2024 8:00 EDT Appointment [facility] Radiology Nuclear Medicine and PET [address] [phone] 03/01/2024 9:30 EDT Appointment [facility] Radiology Nuclear Medicine and PET [address] [phone] documented as of this encounter Visit Diagnoses Not on filedocumented in this encounter Additional Health Concerns Infection Onset Date Last Indicated Resolved Time R/O COVID-19 08/04/2020 08/04/2020 08/04/2020 11:4 0 EST documented as of this encounter
--- OUTSIDE RECORDS SUMMARY | 2024-02-06 13:44 | XMS_ITS | Encounter Summary ---
Author Organization [facility] Address [address] [place] [address] Care Team Providers Care Engineer Systems Name Role Phone Unavailable Primary Care Provider Unavailabl e Encounter Details Date Type Department Care Team (Latest Contact Info) Description 04/11/2004 12:25 EST Hospital Encounter [facility] Emergency Department - Main [place] [address] [place], [place] 07[address] Emergency, MD Ekaterina Discharge Disposition: Home or [...] Visit [facility] Adult Primary Care - [address] 101151 Carrington Calderon MD [address] [phone] 02/27/2024 8:30 EDT Telemedicine [facility] Sleep Program - [address] 580441 Dwight Colbert [address] [place], [place] [address] 02/29/2024 10:30 EDT Appointment [facility] Radiology Nuclear Medicine and PET [address] [phone] 02/29/2024 14:30 EDT Appointment [facility] Radiology Nuclear Medicine and PET [address] [address] 03/01/2024 8:00 EDT Appointment [facility] Radiology Nuclear Medicine and PET [address] [phone] 03/01/2024 9:30 EDT Appointment [facility] Radiology Nuclear Medicine and PET [address] [phone] documented as of this encounter Procedures Procedure [...] DNA PROB E ORDERABLES Performing Organization Address City/[facility] Co de Phone Number [facility] [address] [place] [address] * N. GONORRHOEAE AMPLIFIED PROBE (04/11/2004 13:50 EST) Result No Neisseria gonorrhoeae DNA detected by vocational adviser mediated amplification. [facility] Report Status Final [id number] [facility] Specimen Description [facility]ix [facility] 04/11/2004 13:5 0 EST 04/11/2004 14:05 EST Default Emergency MICROBIOLOGY - GENE RAL ORDERABLES Performing Organization Address City/[facility] Co de Phone Number [facility] [address] [place] [address] * CHLAMYDIA TRACHOMATIS AMPLIFIED PROBE (04/11/2004 13:50 EST) Specimen Description Endocervix [facility] Result No Chlamydia trachomatis DNA detected by vocational adviser mediated amplification. [facility] Report Status Final [id number] [facility] 04/11/2004 13:5 0 EST 04/11/2004 14:05 EST Default Emergency MICROBIOLOGY - GENE [facility] ORDERABLES Performing Organization Address City/State/[facility] Co tn Phone Number [facility] [address] [place] [address] documented in this encounter Visit Diagnoses Not on filedocumented in this encounter
--- OUTSIDE RECORDS SUMMARY | 2024-02-06 13:44 | XMS_ITS | Encounter Summary ---
Author Organization [facility] Address [address] [place] [address] Care Team Providers Care Drupal Php Developer Name Role Phone Unavailable Primary Care Provider Unavailabl e Encounter Details Date Type Department Care Team (Late st Contact Info) Description 03/31/2005 1:30 EDT Hospital Encounter [facility] - Other [address] [place] [address] Bhupendra Mayo MD 111 [facility] Level [address] [place] [phone] Social History Tobacco Use Types Packs/Day Years Used Date Smoking Tobacco: Every Day Cigarettes 0.5 13.2 Started: 11/10/2010 Smokeless Tobacco: Never Comments:06/13/20 actively try ing to quit about 5-8 cigs/day Alcohol Use Standard Drinks/Week Comments Yes 0 (1 standard drink = 0.6 oz pur e alcohol) rarely C Utilities Answer Date Recorded In the past 12 months has [employer], gas, oil, or water [employer] threatened to shut off services in your [...] any time in the past [address] [facility] [place], were you homeless or living in a [...] [facility] Adult [facility] - [address] [phone] Carrington Calderon MD [address] [phone] 02/27/2024 8:30 EDT Telemedicine [facility] Sleep Program - [address] [phone] Dwight Colbert [address] [place] [address] [phone] 02/29/2024 10:30 EDT Appointment [facility] Radiology Nuclear Medicine and PET [address] [phone] 02/29/2024 14:30 EDT Appointment [facility] Radiology Nuclear Medicine and PET [address] [phone] 03/01/2024 8:00 EDT Appointment [facility] Radiology Nuclear Medicine and PET [address] [phone] 03/01/2024 9:30 EDT Appointment [facility] Radiology Nuclear Medicine and PET [address] [phone] documented as of this encounter Procedures Procedure [...] GA S ORDERABLES [facility] [address] [place] [address] documented in this encounter Visit Diagnoses Not on filedocumented in this encounter Additional Health Concerns Infection Onset Date Last Indicated Resolved Time R/O COVID-19 08/04/2020 08/04/2020 08/04/2020 11:4 0 EST documented as of this encounter
--- OUTSIDE RECORDS SUMMARY | 2024-02-06 13:44 | XMS_ITS | Encounter Summary ---
Author Organization [facility] Address [address] [place] [address] Care Team Providers Care Child Support Specialist Name Role Phone Unavailable Primary Care Provider Unavailabl e Encounter Details Date Type Department Care Team (Late st Contact Info) Description 09/27/2005 Before PRISM Converted Visit (Maple) [facility] [address] [place] [address] Oscar Moreno MD MSc [address] [place] [address] Social History Tobacco Use Types Packs/Day Years Used Date Smoking Tobacco: Never Assessed Sex and Gender Information Value Date Recorded Sex Assigned at Not on file Gender Identity Female 06/18/2019 8:54 EST Sexual Orientation Not on file documented as of this encounter Consult Notes * Oscar Moreno MD - 05/17/2009 1819 EST OF SURGICAL ONCOLOGY - BREAST [facility] HISTORY AND PHYSICAL/CONSULTATION - 09/27/2005 [...] or drug addictions. She is employed at [employer]. She is single and lives at home with her family. 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 She continues [...] historyof ovarian cancer. The patient is of Citizen [place] and [place] background. Review of systems: Constitutional: The patient [...] sonographic abnormality in the right breast. Diagnostics: [facility] Radiology report dated 09/21/05. Right breast ultrasound, [...] patient the name and number for the [facility] to help in herpursuit to arrange primary care. Signed by Oscar Moreno MD 10/06/2005 07:27 Nery Del Valle MD Oscar Moreno MD - Oscar Moreno MD P - KKB Job ID: [id number] Document ID: [id number] cc: Kamini Gore MD documented in this encounter Plan of Treatment Upcoming Encounters Date Type Department Care Team (Late st Contact Info) Description 02/21/2024 9:45 EDT Office Visit [facility] Adult Primary Care - [address] [phone] Carrington Calderon MD [address] [place] [phone] 02/27/2024 8:30 EDT Telemedicine [facility] Sleep Program - [address] [phone] Dwight Colbert [address] [place] [address] 02/29/2024 10:30 EDT [facility]ment [facility] Radiology Nuclear Medicine and PET - [address] [address] 02/29/2024 14:30 EDT Appointment [facility] Radiology Nuclear Medicine and PET [address] [phone] 03/01/2024 8:00 EDT Appointment [facility] Radiology Nuclear Medicine and PET - [address] 469851 03/01/2024 9:30 EDT Appointment [facility] Radiology Nuclear Medicine and PET [address] [phone] documented as of this encounter Visit Diagnoses Not on filedocumented in this encounter
--- OUTSIDE RECORDS SUMMARY | 2024-02-06 13:44 | XMS_ITS | Encounter Summary ---
Author Organization [facility] Address [address] [place] [address] Care Team Providers Care Cocoa Press Operator Name Role Phone Unavailable Primary Care Provider Unavailabl e Encounter Details Date Type Department Care Team (Late st Contact Info) Description 07/28/2006 15:28 EST Hospital Encounter [facility] - Maple conversion [address] [place] [address] Elise Vanegas MD [address] [place] [address] Social History Tobacco Use Types Packs/Day Years Used Date Smoking Tobacco: Every Day Cigarettes 0.5 13.2 Started: 11/10/2010 Smokeless Tobacco: Never Comments:06/13/20 actively try ing to quit about 5-8 cigs/day Alcohol Use Standard Drinks/Week Comments Yes 0 (1 standard drink = 0.6 oz pur e alcohol) rarely [facility] Utilities Answer Date Recorded In the past 12 months has [employer], gas, oil, or water [employer] threatened to shut off services in your [...] in the past 12 m [facility], were you homeless or living in [...] [facility] Adult Primary Care - [address] 358451 Carrington Calderon MD [address] [phone] 02/27/2024 8:30 EDT Telemedicine [facility] Sleep Program - [address] [phone] Dwight Colbert [address] [place] [address] [phone] 02/29/2024 10:30 EDT Appointment [facility] Radiology Nuclear Medicine and [address] [phone] 02/29/2024 14:30 EDT Appointment [facility] Radiology Nuclear Medicine and [address] [phone] 03/01/2024 8:00 EDT Appointment [facility] Radiology Nuclear Medicine and PET [address] [phone] 03/01/2024 9:30 EDT Appointment [facility] Radiology Nuclear Medicine and [address] [phone] documented as of this encounter Visit Diagnoses Not on filedocumented in this encounter Additional Health Concerns Infection Onset Date Last Indicated Resolved Time R/O COVID-19 08/04/2020 08/04/2020 08/04/2020 11:4 0 EST documented as of this encounter
[2024-02-06] MEDS: Cyclobenzaprine 10 MG TAB, 3 TABS/BTL PO (14:16)
[2024-02-06 14:17] VITALS: BP 117/87; PULSE 104; RESP 14; O2SAT 98
== END 2024-02-06 14:16 | disposition home or self-care (01) ==
PROVIDERS: Emergency Provider Registered Nurse Emergency; PCP Internal Medicine
DX: M43.6 Torticollis (principal); E11.40 Type 2 diabetes mellitus with diabetic neuropathy, unspecified; Z79.4 Long term (current) use of insulin
CPT/HCPCS: 99283; 72040

== ENCOUNTER 2024-02-07 13:06 | Outpatient (REF) | payer SELFPAY | END 2024-02-07 13:07 | disposition home or self-care (01) | LOC: LBN 13:06 | PROVIDERS: PCP Internal Medicine; Visit Provider Podiatrist | DX: L97.529 Non-pressure chronic ulcer of other part of left foot with unspecified severity (principal); T81.40XA Infection following a procedure, unspecified, initial encounter | CPT/HCPCS: 87077; 87070; 87075; 87186; 87205 ==

== ENCOUNTER 2024-02-08 14:32 | Outpatient (CLI) | payer SELFPAY ==
--- NOTE | 2024-02-08 13:15 | DI.RAD_ITS ---
Exam(s) XR FOOT LT COMPLETE EXAM: XR FOOT LT COMPLETE CLINICAL HISTORY: Attention to fourth metatarsal area, E11.621. TECHNIQUE: 2D digital imaging was performed of the left foot. Three images were obtained. AP, obli que and lateral views were obtained. COMPARISON: CR XR FOOT LT COMPLETE from 11/30/2023 CR XR FOOT LT COMPLETE from 01/02/2024 FINDINGS: BONES: There are again seen amputations of the 1st through 5th toes to the level of the mid metatarsa ls. Periosteal reaction is seen around the distal aspects of the residual metatarsals. No fracture is seen. There is a large plantar calcaneal spur. JOINTS: No dislocation present. SOFT TISSUE: Mild soft tissue swelling is seen at the distal aspect of the foot. No subcutaneous gas is seen. No skin abnormality is seen to suggest an ulceration. Please correlate with physical exam . 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 No definite evidence to suggest osteomye litis. The current appearance of the bones may be secondary to recent surgery. No soft tissue gas i s seen at this time. Follow-up as clinically appropriate. This may involve an MRI examination. DATA REPOSITORY: RADIATION DOSE DELIVERED:
== END 2024-02-08 14:52 ==
LOC: DI 14:32
PROVIDERS: PCP Internal Medicine; Visit Provider Podiatrist
DX: E11.621 Type 2 diabetes mellitus with foot ulcer (principal); L97.521 Non-pressure chronic ulcer of other part of left foot limited to breakdown of skin
CPT/HCPCS: 73630

== ENCOUNTER 2024-02-10 00:53 | Outpatient (RCR) | payer SELFPAY ==
--- OUTSIDE RECORDS SUMMARY | 2024-02-10 01:14 | XMS_ITS | Encounter Summary ---
Author Organization [facility] [place] [address] Care Team Providers Care Senior Financial Accountant Name Role Phone Carrington Calderon MD Primary Care Provider [phone] Encounter Details Date Type Department Care Team (Late st Contact Info) Description 01/19/2024 Telephone [place] [phone] Unknown None Social History Tobacco Use Types [...] (if other than self): Patient Callback number: [phone] Best time you are available: Any Route Per Clinic Coverage Page documented in this encounter Plan of Treatment Upcoming Encounters Date Type Department Care Team (Late st Contact Info) Description 03/15/2024 1:30 PM EDT Office [place] [phone] Jackie Javeir MD [facility] [place] [address] documented as of this encounter Visit Diagnoses Not on filedocumented in this encounter Care Teams Senior Financial Accountant Relationship Specialty Start Date End Date Carrington Calderon MD 1 [facility] 1 [place] [phone] PCP - General Internal Medicine 01/16/24 documented as of this encounter
--- OUTSIDE RECORDS SUMMARY | 2024-02-10 01:14 | XMS_ITS | Encounter Summary ---
Author Organization [facility] [place] [address] Care Team Providers Care Mounter Clarinets Name Role Phone Carrington Calderon MD Primary Care Provider [phone] Encounter Details Date Type Department Care Team (Late st Contact Info) Description 02/08/2024 Telephone [place] [address] Jackie Javier MD [facility] [place] [address] Social History Tobacco Use Types Packs/Day Years Used Date Smoking Tobacco: Every Day Cigarettes Smokeless Tobacco: Never Sex and Gender Information Value Date Recorded Sex Assigned at Not on file Gender Identity Not on file Sexual Orientation Not on file documented as of this encounter Miscellaneous Notes * Telephone Encounter - Carline Gaxiola - 02/08/2024 10:36 AM EDT CLINIC PHONE COVERAGE: Reason for Call: Provider Call PCP: Carrington Calderon MD / Treating provider: Dr. Javier Request Type: call to insurance company request Name of Provider: Bethanie Name of Facility they are calling from: [facility] Details: Bethanie calling from [facility] stating the patient has a MRI of foot ordered by Dr. Javier however the patients is on medical leave and the insurance is suspended until the end ofthe month. Bethanie requesting we either extend the order until the end of the month when the insurance goes back into effect or call [employer] and get a reference number stating they will approve to retro bill the MRI to after the insurance is back. Caller Name (If other than patient): Bethanie Relationship to Patient (if other than self): [facility] Callback number: [phone] Best time you are available: Any documented in this encounter Plan of Treatment Upcoming Encounters Date Type Department Care Team (Late st Contact Info) Description 03/15/2024 1:30 PM EDT Office [place] [address] Jackie Javier MD [facility] [place] [address] documented as of this encounter Visit Diagnoses Not on filedocumented in this encounter Care Teams Mounter Clarinets Relationship Specialty Start Date End Date Carrington Calderon MD 1 [facility] 1 [place] [phone] PCP - General Internal Medicine 01/16/24 documented as of this encounter
--- OUTSIDE RECORDS SUMMARY | 2024-02-10 01:14 | XMS_ITS | Encounter Summary ---
Author Organization Formerly [facility] [place] [address] Care Team Providers Care Registered Nurse Practitioner Name Role Phone Carrington Calderon MD Primary Care Provider [phone] [phone] Encounter Details Date Type Department Care Team (Late st Contact Info) Description 02/03/2024 Notes [place] [phone] Olive Anna, RN Social History Tobacco Use [...] PM EDT Infectious Disease Department Faxed to [facility] on 02/03/24 at 1613 Fax confirmation on 02/03/24 at 1620 Document(s) faxed: Standing labs MRI order documented in this encounter Plan of Treatment Upcoming Encounters Date Type Department Care Team (Late st Contact Info) Description 03/15/2024 1:30 PM EDT Office [place] [address] Jackie Javier MD [facility] [place] [address] documented as of this encounter Visit Diagnoses Not on filedocumented in this encounter Care Teams Registered Nurse Practitioner Relationship Specialty Start Date End Date Carrington Calderon MD 1 [facility] Level 1 [place] [phone] PCP - General Internal Medicine 01/16/24 documented as of this encounter
--- OUTSIDE RECORDS SUMMARY | 2024-02-10 01:14 | XMS_ITS | Encounter Summary ---
Author Organization [facility] [place] [address] Care Team Providers Care Public Safety Police Name Role Phone Carrington Calderon MD Primary Care Provider +1 [phone] Encounter Details Date Type Department Care Team (Late st Contact Info) Description 02/03/2024 Orders Only [place] [phone] Jackie Javier MD [facility] [place] [address] Diabetic foot ulcer with osteomyelitis Social History [...] PM EDT Office Visit [place] [phone] Jackie Javier MD [facility] [place] [address] Scheduled Orders Name Type Priority Associated Diagnoses [...] uncontrolled documented in this encounter Care Teams Public Safety Police Relationship Specialty Start Date End Date Carrington Calderon MD 1 [facility] 1 [place] [address] PCP - General Internal Medicine 01/16/24 documented as of this encounter
--- OUTSIDE RECORDS SUMMARY | 2024-02-10 01:14 | XMS_ITS | Encounter Summary ---
Author Organization Formerly [facility] [place] [address] Care Team Providers Care Admissions Evaluator Name Role Phone Carrington Calderon MD Primary Care Provider [phone] [phone] Encounter Details Date Type Department Care Team [...] PM EDT Office [place] [address] Jackie Javier MD [facility] [place] [address] documented as of this encounter Visit Diagnoses Not on filedocumented in this encounter Care Teams Admissions Evaluator Relationship Specialty Start Date End Date Carrington Calderon MD [address] [place] [address] Level 1 [place] [address] PCP - General Internal Medicine 01/16/24 documented as of this encounter
--- OUTSIDE RECORDS SUMMARY | 2024-02-10 01:14 | XMS_ITS | Encounter Summary ---
Author Organization [facility] [place] [address] Care Team Providers Care Data Warehouse Administrator Name Role Phone Carrington Calderon MD Primary Care Provider +1 [phone] Encounter Details Date Type Department Care Team (Late st Contact Info) Description 02/03/2024 Orders [place] [address] Jackie Javier MD [facility] [place] [address] Social History Tobacco Use Types Packs/Day Years [...] PM EDT Office Visit [place] [address] Jackie Javier MD [facility] [place] [address] documented as of this encounter Visit Diagnoses Not on filedocumented in this encounter Care Teams Data Warehouse Administrator Relationship Specialty Start Date End Date Carrington Calderon MD 1 [facility] 1 [place] [address] PCP - General Internal Medicine 01/16/24 documented as of this encounter
--- OUTSIDE RECORDS SUMMARY | 2024-02-10 01:14 | XMS_ITS | Clinical Summary ---
Author Organization Count Includes [facility] Address [facility] [place] [address] Care Team Providers Care Chief Accountant Name Role Phone Carrington Calderon MD Primary Care Provider [phone] [phone] Allergies Active Allergy Reactions Criticality Noted Date [...] for 14 days. 56 tablet 02/03/2024 Active dalbavancin (Dalvance) 500 mg injection solutionIndications: Diabetic foot ulcer with osteomyelitis Inject 1,500 mg into the vein once for 1 dose. Flush Line with D5w 10 mL prior and post Dalbavancin infusion 02/10/2024 Active dextrose 5% Parenteral SolutionIndications: Diabetic foot ulcer with osteomyelitis Flush line with D5W 10 ml prior to and post dalbavancin infusion 10 mL 02/07/2024 Active Active Problems Problem Noted Date Diagnosed Date Osteomyelitis 02/03/2024 Encounters Date Type Department Care Team Description 02/09/2024 Telephone [place] [address] None 02/08/2024 Telephone [place] [address] Jackie Javier MD 02/07/2024 Notes [place] [address] Olive Anna RN 02/07/2024 Orders [place] [address] Jackie Javier MD Diabetic foot ulcer with osteomyelitis 02/07/2024 Telephone [place] [address] None 02/03/2024 12:12 PM EDT - 02/03/2024 11:59 PM EDT Hospital Encounter [place] [address] Osteomyelitis, unspecified site, unspecified type; Diabetic foot ulcer with osteomyelitis Discharge Disposition: Home 02/03/2024 10:30 AM EDT Office Visit Infectious Disease at [place] [phone] Jackie Javier MD Diabetic foot ulcer with osteomyelitis (Primary Dx) 02/03/2024 Telephone [place] [address] Olive Anna, RN 02/03/2024 Notes [place] [address] Olive Anna, RN 02/03/2024 Orders [place] [phone] Jackie Javier MD Diabetic foot ulcer with osteomyelitis 02/03/2024 Orders [place] [address] Jackie Javier MD 02/03/2024 Travel 01/19/2024 Telephone [place] [phone] Unknown from Last 3 Months Social History [...] PM EDT Office Visit Infectious Disease at [facility] [place] [address] Jackie Javier MD [facility] [place] [address] Health Maintenance Due Date Last Done Comments Pneumococcal Vaccine: At-Ris k 5-64yrs (1 of 2 - PCV) 1991 HIV screen 2003 Hepatitis C Screening 2003 Lipid Screening 2003 Hepatitis B vaccine (0-59 yrs) (1) 2004 Tdap adult 2004 Tetanus vaccine 2004 HPV test 2015 PAP Smear 2015 Covid-19 Vaccine (4 - 2022-24 season) 2024 11/17/2022, 07/06/2021, 01/28/2021 Influenza (Flu) vaccine (1 [...] 12.3(H) <=4.9 mg/L 02/03/2024 1:[address] [facility] Blood VENOUS BLOOD SPECIMEN / Unknown Venipuncture / Unknown 02/03/2024 12:38 PM EDT 02/03/2024 1:00 PM EDT Jackie Javier MD CHEMISTRY ORDERABLES [facility] [place] [address] * (ABNORMAL) CBC (with Diff) (02/03/2024 12:38 PM EDT) White Blood Cell 18.69(H) 4.00 - 9.50 x10(3)/mc L 02/03/2024 1:[address] [facility] Red Blood Cell 4.62 4.00 - 5.21 x10(6)/mc L 02/03/2024 1:[address] [facility] Hemoglobin 14.3 11.7 - 15.5 g/dL 02/03/2024 1:[address] [facility] Hematocrit 43.0 35.7 - 45.8 % 02/03/2024 1:[address] [facility] Mean Cell Volume 93.1 82.6 - 94.4 fL 02/03/2024 1:[address] [facility] Mean Cell Hemoglobin 31.0 27.1 - 32.0 pg 02/03/2024 1:[address] [facility] Mean Cell Hemoglobin Concentration 33.3 31.7 - 35.0 g/dL 02/03/2024 1:[address] [facility] Platelet 405(H) 145 - 357 x10(3)/mc L 02/03/2024 1:[address] [facility] Mean Platelet Volume 9.6 7.6 - 12.9 fL 02/03/2024 1:[address] [facility] RDW Standard Deviation 43.9 37.0 - 46.0 fL 02/03/2024 1:21 PM [facility] RDW coefficient of variation 12.9 11.5 - 14.1 % 02/03/2024 1:21 PM [facility] NRBC% auto 0.0 % 02/03/2024 1:21 PM [facility] NRBC Absolute 0.00 0.00 - 0.00 x10(3)/mc L 02/03/2024 1:21 PM [facility] Neutrophil % 63.6 % 02/03/2024 1:21 PM [facility] Neutrophil Absolute (ANC) - Automated 11.90(H) 1.70 - 6.10 x10(3)/mc L 02/03/2024 1:21 PM [facility] Lymph % 26.2 % 02/03/2024 1:21 PM [facility] Lymph Absolute 4.90(H) 0.90 - 3.20 x10(3)/mc L 02/03/2024 1:21 PM [facility] Monocyte % 7.3 % 02/03/2024 1:21 PM [facility] Monocyte Absolute 1.36(H) 0.30 - 0.90 x10(3)/mc L 02/03/2024 1:21 PM [facility] Eos % 2.0 % 02/03/2024 1:21 PM [facility] Eos Absolute 0.37 0.00 - 0.40 x10(3)/mc L 02/03/2024 1:21 PM [facility] Basophil % 0.5 % 02/03/2024 1:21 PM [facility] Baso Absolute 0.09 0.00 - 0.10 x10(3)/mc L 02/03/2024 1:21 PM [facility] Immature Gran % 0.4 % [facility] Gran Absolute 0.07(H) 0.00 - 0.04 x10(3)/mc L 02/03/2024 1:[address] [facility] Blood VENOUS BLOOD SPECIMEN / Unknown Venipuncture / Unknown 02/03/2024 12:38 PM EDT 02/03/2024 1:00 PM EDT Jackie Javier MD HEMATOLOGY ORDERABLE S [facility] [place] [address] * (ABNORMAL) Comprehensive metabolic panel (02/03/2024 12:38 PM EDT) Glucose 306(H) 65 - 199 mg/dL 02/03/2024 1:[address] [facility] Comment:Glucose Concentratio n >=200 mg/dL plus symptoms is consistent with Diabetes Mellitus. Blood Urea Nitrogen 9 8 - 18 mg/dL 02/03/2024 1:[address] [facility] Creatinine 0.56(L) 0.70 - 1.20 mg/dL 02/03/2024 1:[address] [facility] Sodium 133(L) 135 - 145 mMol/L 02/03/2024 1:[address] [facility] Potassium 4.4 3.5 - 5.0 mMol/L 02/03/2024 1:[address] [facility] Chloride 96(L) 98 - 107 mMol/L 02/03/2024 1:[address] [facility] Carbon Dioxide 25 22 - 31 mMol/L 02/03/2024 1:[address] [facility] Anion Gap 12 5 - 15 mMol/L 02/03/2024 1:[address] [facility] Calcium 9.8 8.5 - 10.5 mg/dL 02/03/2024 1:[address] [facility] Protein, Total 7.5 6.1 - 8.0 g/dL 02/03/2024 1:[address] [facility] Albumin 4.1 3.2 - 5.2 g/dL 02/03/2024 1:[address] [facility] Aspartate Aminotransferase 12 <=30 unit/L 02/03/2024 1:[address] [facility] Alanine Aminotransferase 13 0 - 30 unit/L 02/03/2024 1:[address] [facility] Alkaline Phosphatase 138(H) 35 - 105 unit/L 02/03/2024 1:[address] [facility] Bilirubin, Total <0.2 <=1.3 mg/dL 02/03/2024 1:[address] [facility] Est Glomerular Filtration Rate - Female 120 mL/min/1. 73 m?? 02/03/2024 1:[address] [facility] Comment: This patient's estimated GFR [...] Fasting Status No 02/03/2024 1:[address] [facility] Blood VENOUS BLOOD SPECIMEN / Unknown Venipuncture / Unknown 02/03/2024 12:38 PM EDT 02/03/2024 1:00 PM EDT Jackie Javier MD CHEMISTRY ORDERABLES [facility] [place] [address] * Scan Doc: Surgical Pathology (01/03/2024 12:00 [...] RDR/RSLT from Last 3 Months Care Teams Chief Accountant Relationship Specialty Start Date End Date Carrington Calderon MD 1 [facility] Level 1 [place] [address] PCP - General Internal Medicine 01/16/24
--- OUTSIDE RECORDS SUMMARY | 2024-02-10 01:14 | XMS_ITS | Encounter Summary ---
Author Organization [facility] [place] [address] Care Team Providers Care Repairer General Name Role Phone Carrington Calderon MD Primary Care Provider +1 [phone] Reason for Referral * Diagnostic Test (Routine) - New Request Specialty Diagnoses / Procedures Referred By Kit goode Referred To Contact Radiology Diagnoses Diabetic foot ulcer with osteomyelitis Procedures MRI Foot wwo Contrast Left Jackie Javier MD [facility] [place] [address] Referral ID Status Reason Start Date Expiration Date Visits Requested Visits Authorized [id number] New Request Specialty Service Requested 02/03/2024 08/03/2025 1 1 Reason for Visit * Consultation (Urgent) - Authorized Specialty Diagnoses / Procedures Referred By Kit goode Referred To Contact Infectious Diseases Diagnoses Osteomyelitis, unspecified Non-pressure chronic ulcer of other part of left foot with fat layer exposed Madelin Ojeda, [facility] [address] [place] [address] [facility] [address] [place] [phone] Referral ID Status Reason Start Date Expiration Date Visits Requested Visits Authorized [id number] Authorized Consult, Test & Treat PCP Updated and/or Approved 01/11/2024 01/10/2025 12 12 Encounter Details Date Type Department Care Team (Latest Contact Info) Description 02/03/2024 10:30 AM EDT Office [place] [address] Jackie Javier MD [facility] DR [place] [address] Diabetic foot ulcer with osteomyelitis (Primary Dx) [...] L [facility] 2019. [facility], after which she says she was treated with of IV antibiotics via PICC line. In 2020, she transitioned her care to a podiatry practice closer to [facility], where she currently follows with Dr. Ojeda. [...] locally, with the final set at our [id number] appointment. Lastly, I emphasized the importance of other measures, including excellent glycemic control. I alsowonder if she would benefit from an arterial Duplex U/S to assess blood flow to that foot and the need for vascular intervention. I spent a total of 70 minutes on the date of service on the [id number] encounter, chart review, clinical decision making, documentation, [...] PM EDT Office [place] [address] Jackie Javier MD [facility] [place] [address] Scheduled Orders Name Type Priority Associated Diagnoses Orde r Schedule MRI Foot wwo Contrast Left Imaging Routine Diabetic foot ulcer with osteomyelitis Expected: 02/03/2024, Expires: 08/04/2024 documented as of this encounter Results * (ABNORMAL) CRP, acute inflammation (02/03/2024 12:38 PM EDT) C-Reactive Protein 12.3(H) <=4.9 mg/L 02/03/2024 1:43 PM EDT [facility] Blood VENOUS BLOOD SPECIMEN / Unknown Venipuncture / Unknown 02/03/2024 12:38 PM EDT 02/03/2024 1:00 PM EDT Jackie Javier MD CHEMISTRY ORDERABLES [facility] [place] [address] * (ABNORMAL) Comprehensive metabolic panel (02/03/2024 12:38 PM EDT) Glucose 306(H) 65 - 199 mg/dL 02/03/2024 1:43 PM EDT [facility] Comment:Glucose Concentratio n >=200 mg/dL plus symptoms is consistent with Diabetes Mellitus. Blood Urea Nitrogen 9 8 - 18 mg/dL 02/03/2024 1:43 PM EDT [facility] Creatinine 0.56(L) 0.70 - 1.20 mg/dL 02/03/2024 1:43 PM [facility] Sodium 133(L) 135 - 145 mMol/L 02/03/2024 1:43 PM [facility] Potassium 4.4 3.5 - 5.0 mMol/L 02/03/2024 1:43 PM [facility] Chloride 96(L) 98 - 107 mMol/L 02/03/2024 1:43 PM [facility] Carbon Dioxide 25 22 - 31 mMol/L 02/03/2024 1:43 PM [facility] Anion Gap 12 5 - 15 mMol/L 02/03/2024 1:43 PM [facility] Calcium 9.8 8.5 - 10.5 mg/dL 02/03/2024 1:43 PM [facility] Protein, Total 7.5 6.1 - 8.0 g/dL 02/03/2024 1:43 PM [facility] Albumin 4.1 3.2 - 5.2 g/dL 02/03/2024 1:43 PM [facility] Aspartate Aminotransferase 12 <=30 unit/L 02/03/2024 1:43 PM [facility] Alanine Aminotransferase 13 0 - 30 unit/L 02/03/2024 1:43 PM [facility] Alkaline Phosphatase 138(H) 35 - 105 unit/L 02/03/2024 1:43 PM [facility] Bilirubin, Total <0.2 <=1.3 mg/dL 02/03/2024 1:43 PM [facility] Est Glomerular Filtration Rate - Female 120 mL/min/1. 73 m?? 02/03/2024 1:43 PM [facility] Comment: This patient's estimated GFR was [...] Fasting Status No 02/03/2024 1:43 PM EDT [facility] Blood VENOUS BLOOD SPECIMEN / Unknown Venipuncture / Unknown 02/03/2024 12:38 PM EDT 02/03/2024 1:00 PM EDT Jackie Javier MD CHEMISTRY ORDERABLES [facility] [place] [address] * (ABNORMAL) CBC (with Diff) (02/03/2024 12:38 PM EDT) White Blood Cell 18.69(H) 4.00 - 9.50 x10(3)/mc L 02/03/2024 1:21 PM EDT [facility] Red Blood Cell 4.62 4.00 - 5.21 x10(6)/mc L 02/03/2024 1:21 PM EDT [facility] Hemoglobin 14.3 11.7 - 15.5 g/dL 02/03/2024 1:21 PM EDT [facility] Hematocrit 43.0 35.7 - 45.8 % 02/03/2024 1:21 PM EDT [facility] Mean Cell Volume 93.1 82.6 - 94.4 fL 02/03/2024 1:21 PM EDT [facility] Mean Cell Hemoglobin 31.0 27.1 - 32.0 pg 02/03/2024 1:21 PM EDT [facility] Mean Cell Hemoglobin Concentration 33.3 31.7 - 35.0 g/dL 02/03/2024 1:21 PM EDT [facility] Platelet 405(H) 145 - 357 x10(3)/mc L 02/03/2024 1:21 PM EDT [facility] Mean Platelet Volume 9.6 7.6 - 12.9 fL 02/03/2024 1:21 PM [facility] RDW Standard Deviation 43.9 37.0 - 46.0 fL 02/03/2024 1:21 PM [facility] RDW coefficient of variation 12.9 11.5 - 14.1 % 02/03/2024 1:21 PM [facility] NRBC% auto 0.0 % 02/03/2024 1:21 PM [facility] NRBC Absolute 0.00 0.00 - 0.00 x10(3)/mc L 02/03/2024 1:21 PM [facility] Neutrophil % 63.6 % 02/03/2024 1:21 PM [facility] Neutrophil Absolute (ANC) - Automated 11.90(H) 1.70 - 6.10 x10(3)/mc L 02/03/2024 1:21 PM [facility] Lymph % 26.2 % 02/03/2024 1:21 PM [facility] Lymph Absolute 4.90(H) 0.90 - 3.20 x10(3)/mc L 02/03/2024 1:21 PM [facility] Monocyte % 7.3 % 02/03/2024 1:21 PM [facility] Monocyte Absolute 1.36(H) 0.30 - 0.90 x10(3)/mc L 02/03/2024 1:21 PM [facility] Eos % 2.0 % 02/03/2024 1:21 PM [facility] Eos Absolute 0.37 0.00 - 0.40 x10(3)/mc L 02/03/2024 1:21 PM [facility] Basophil % 0.5 % 02/03/2024 1:21 PM [facility] Baso Absolute 0.09 0.00 - 0.10 x10(3)/mc L 02/03/2024 1:21 PM EDT [facility] Immature Gran % 0.4 % 1:21 PM EDT [facility] Immature Gran Absolute 0.07(H) 0.00 - 0.04 x10(3)/mc L 02/03/2024 1:21 PM EDT [facility] Blood VENOUS BLOOD SPECIMEN / Unknown Venipuncture / Unknown 02/03/2024 12:38 PM EDT 02/03/2024 1:00 PM EDT Jackie Javier MD HEMATOLOGY ORDERABLE S [facility] [place] [address] documented in this encounter Visit Diagnoses Diagnosis Diabetic foot ulcer with osteomyelitis- Primary Type II or unspecified type diabetes mellitus with other specified manifestations, not stated as uncontrolled documented in this encounter Care Teams Repairer General Relationship Specialty Start Date End Date Carrington Calderon MD 1 [facility] 1 [place] [address] PCP - General Internal Medicine 01/16/24 documented as of this encounter
--- OUTSIDE RECORDS SUMMARY | 2024-02-10 01:14 | XMS_ITS | Encounter Summary ---
Author Organization [facility] [place] [address] Care Team Providers Care Telephone Station Repairer Name Role Phone Carrington Calderon MD Primary Care Provider [phone] [phone] Encounter Details Date Type Department Care Team (Late st Contact Info) Description 02/07/2024 Notes [place] [address] Olive Anna, RN Social History Tobacco Use Types Packs/Day Years Used Date Smoking Tobacco: Every Day Cigarettes Smokeless Tobacco: Never Sex and Gender Information Value Date Recorded Sex Assigned at Not on file Gender Identity Not on file Sexual Orientation Not on file documented as of this encounter Progress Notes * Olive Anna, RN - 02/07/2024 1:15 PM EDT Infectious Disease Department Faxed to [facility] infusion suite on 02/07/24 at 1300 Fax confirmation on 02/07/24 at 1310 Document(s) faxed: Dalbavancin orders Spoke to nurse Crow at [facility] and pt is scheduled for 02/10/24 @1200 Infectious Disease Department Faxed to [facility] Radiology on 02/07/24 at 1300 Fax confirmation on 02/07/24 at 1315 Document(s) faxed: MRI screening questionnaire form that pt's Arnold answered all questions during phone call with this telegraphic typewriter installer. documented in this encounter Plan of Treatment Upcoming Encounters Date Type Department Care Team (Late st Contact Info) Description 03/15/2024 1:30 PM EDT Office [place] [address] Jackie Javier MD [facility] [place] [address] documented as of this encounter Visit Diagnoses Not on filedocumented in this encounter Care Teams Telephone Station Repairer Relationship Specialty Start Date End Date Carrington Calderon MD 1 [facility] Level 1 [place] [address] PCP - General Internal Medicine 01/16/24 documented as of this encounter
--- OUTSIDE RECORDS SUMMARY | 2024-02-10 01:14 | XMS_ITS | Clinical Summary ---
Author Organization [facility] Address [address] [place] [address] Care Team Providers Care Severity Of Illness Coordinator Name Role Phone Carrington Calderon MD Primary Care Provi anders Carmelo Hendrickson Unavailable Unavailable Abigail Díaz Unavailable [phone] Allergies Active Allergy Reactions Criticality Noted [...] polyneuropathy, with long-term current use of insulin ([facility]) Inject 1 Each into the skin every 10 days. 9 Each 4 3 Active ondansetron (ZOFRAN-ODT) 4 mg disintegrating tabletIndications: Cyclic vomiting syndrome Take 1 Tablet by mouth every 8 hours as needed for Nausea. 30 Tablet 11 4 Active insulin glargine (LANTUS SOLOSTAR/SEMGLEE) 100 unit/mL (3 mL) injection penIndications:Typ e 2 diabetes mellitus with diabetic polyneuropathy, with long-term current use of insulin ([facility]) Inject 44 Units into the skin at bedtime. 36 mL 4 4 Active empagliflozin (JARDIANCE) 25 mg tabletIndications: Type 2 diabetes mellitus with diabetic polyneuropathy, with long-term current use of insulin ([facility]) Take 1 Tablet by mouth daily. 90 Tablet 4 4 Active SITagliptin phosphate (JANUVIA) 100 mg tabletIndications: Type 2 diabetes mellitus with diabetic polyneuropathy, with long-term current use of insulin ([facility]) Take 1 Tablet by mouth daily. 90 Tablet 4 4 Active metoclopramide HCl (REGLAN) 10 mg tablet Take 1 Tablet by mouth 3 times daily before meals. Starting 3 days before menses and stopping after end of period 270 Tablet 3 4 Active gabapentin (NEURONTIN) 300 mg capsuleIndications :Diabetic polyneuropathy associated with type 2 diabetes mellitus ([facility]) Take 1 Capsule by mouth every morning AND 4 Capsules at bedtime. 450 Capsule 4 4 Active SUMAtriptan (IMITREX) 20 mg/actuation nasal spray USE 1 SPRAY(S) INTO RIGHT NOSTRIL NEEDED FOR MIGRAINE HEADACHE 6 Each 1 4 Active Blood-Glucose Transmitter (DEXCOM G6 TRANSMITTER) deviceIndications: Type 2 diabetes mellitus with diabetic polyneuropathy, with long-term current use of insulin ([facility]) Inject 1 Each into the skin every 3 months. 1 Each 4 4 Active HUMALOG KWIKPEN INSULIN 100 unit/mL injectable penIndications:Typ e 2 diabetes mellitus with diabetic polyneuropathy, with long-term current use of insulin ([facility]) 8 units with breakfast, 15 units with [...] polyneuropathy, with long-term current use of insulin ([facility]) Brand: Freestyle Lite 1 Each 4 Active blood glucose test stripsIndications: Type 2 diabetes mellitus with diabetic polyneuropathy, with long-term current use of insulin ([facility]) Brand: Freestyle Lite, check glucose 4 times per day for insulin dose titration 100 Each 4 Active lancetsIndications :Type 2 diabetes mellitus with diabetic polyneuropathy, with long-term current use of insulin ([facility]) Brand: Freestyle, check glucose 4 times per [...] 06/19 Patient has given permission for [facility] to verbally discuss the following [...] Confirmed patient has Traditional Medicaid now. TCN: [id number] Category: P2 Garfield Healy 06/10/2020 19:11 Problem Noted Date Diagnosed Date Tobacco use 12/21/2021 Skin infection 12/21/2021 Pannus, abdominal 12/21/2021 Overview: - as of 01/2022, does not meet criteria for surgical intervention (see 01/29/22 note) Neuropathic diabetic ulcer of foot ([facility]) Gastroparesis 08/10/2020 Overview: - Confirmed on gastric [...] polyneuropathy, with long-term current use of insulin ([facility]) 06/05/2020 Overview: - Dx approx age 25, [...] approx 2012 - had SI, treated at [place]. Marijuana prn to help with stress/anxiety sx -Describes paradoxical effect of citalopram, reportedly resulting in the above admission at [place] Migraine with aura and witho ut status [...] Overview: Added automatically from request for surgery [id number] of unknown anatomic location 06/20/2020 06/27/2020 Overview: Clinical Group: [facility] Patient HPI: Cristy Luo is an 35 y.o. , patient with history of ectopic and positive HCG during post operative period for unrelated procedure. Reported cramping to [facility] nurse on 06/19. LMP: End of the first week of May Rh status: B- Rhogam: Given by [facility] 06/20/20 Desired : Unknown Ectopic risk factors: hx of ectopic pregnancies and five D&C's . 10/2018: Interstitial treated w/ MTX. HCGs Lab Results Component Value Date HCGPREG 49 (H) 06/25/2020 HCGPREG 111 (H) 06/23/2020 HCGPREG 152 (H) 06/21/2020 HCGPREG 108 (H) 06/19/2020 HCGPREG 2,954 (H) 10/11/2019 HCGPREG 707 (H) 09/02/2019 HCGPREG 316 (H) 08/31/2019 Plan: 06/20/2020: US today and given RhoGham by [facility]. Place in BB per MD Esteban [...] repeat HCG 06/25 & U/S 06/25 in [facility]. MARCELO Dale 06/25/20: U/S results - [...] Overview: Added automatically from request for surgery [id number] Type 2 diabetes mellitus wit h left diabetic foot ulcer ([facility]) 05/03/2020 03/27/2021 Osteomyelitis of great toe o f left foot ([facility]) 03/12/2020 06/11/2021 Diabetic foot ulcer associat ed with diabetes mellitus due to underlying condition ([facility]) 03/07/2020 03/27/2021 Diabetic foot infection ([facility]) 03/06/2020 06/11/2021 Diabetic foot ulcer ([facility]) 03/06/2020 06/11/2021 Cellulitis of great toe of left foot 11/26/2019 06/11/2021 Encounter for sterilization 11/20/2019 06/20/2020 Overview: Added automatically from request for surgery [id number] Missed 10/12/2019 10/15/2019 Overview: Clinical Group: ED [...] PCR results found No results found for: [id number] HgA1c [ ] 1T pending [ ] [...] visit. Ectopic 10/25/2018 10/12/2019 Overview: Clinical Group: [facility] (eg. COGS, ED patient, UOM, MFM, [...] Quant Beta HCG = 1652.8 mIU/ml @ [facility] 11/10/2018: Quant Beta HCG, Preg 1,117 mIU/ml* (Ref range: <5 mIU/ml) 11/21/18: Quant Beta HCG 299.98 mIU/mL at [facility] (ref range <2.39) 12/03/18: Quant Beta HCG, 41.94 mIU/ml at [facility] 12/13/18: Quant Beta HCG, 13.63 mIU/ml at [facility] Plan: 10/24/18: per Dr. Coronado repeat [...] go to lab 11/08. States will go 11/09/18.[facility] 11/10/18: Plan per Dr. Almeida, repeat HCG in 1 week (11/17). Results & plan reviewed with Cristy. MARCELO Dale 11/21/18 Pt plans on going to [facility] today. [facility] 11/21/18. BHCG 299.98. Repeat in 1 week. Pt would like to go 11/27/18([facility]) as off from work [employer] 12/01/18: [...] Cristy with plan. MARCELO Dale 12/25/18: Per [facility] lab last HCG was 12/13, NOS for 12/20, LVM X3, letter sent, will remove from [employer] Book.MARCELO Dale Spontaneous miscarriage 09/04/201510/05 Overview: 02/18, 08/19. Followed by Dr. López[facility] in OBGYN Type 2 diabetes mellitus ([facility]) 09/03/2015 06/11/2021 Overview: - Dx approx age 25, possible mixed physiology (type I/II) - intolerant of MFM (diarrhea) Encounters Date Type Department Care Team Description 02/06/2024 Telephone [facility] Adult [facility] - [place] [address] [place] [address] Cedric Yoon MD Neck Pain 02/06/2024 Telephone [facility] Adult Primary Care [facility] [address] [place] [address] Cedric Yoon MD Torticollis 01/18/2024 Refill [facility] [address] [place] [address] Carrington Calderon MD Medications Refill 01/06/2024 Lab Requisition [facility] Pathology & Laboratory Medicine [address] [address] Outr Resulting Lab, Provider 01/06/2024 Telephone [facility] Primary [facility] [address] [place] [address] Carrington Calderon MD Medication Management 01/03/2024 Lab Requisition [facility] Pathology & Laboratory [address] [address] Madelin Ojeda MD Encounter for other general examination 12/20/2023 Refill [facility] [address] [place] [address] Carrington Calderon MD Medications Refill 12/15/2023 Patient Outreach [address] [address] Abigail Díaz 12/14/2023 Patient Outreach [facility] Primary [facility] [address] [place] [address] Carmelo Hendrickson 12/09/2023 Orders Only [facility] Radiology [address] [address] Teresita Fitzpatrick MD 12/07/2023 Patient Outreach [facility] Primary [address] [address] Carmelo Hendrickson 12/02/2023 Patient Outreach [facility] Adult Primary [facility] [address] [place] [address] Carmelo Hendrickson 12/02/2023 Patient Outreach [address] [address] Abigail Díaz 12/01/2023 15:45 EDT Office Visit [address] [address] Nimisha Clifton NP Neuropathic diabetic ulcer of foot (HCC-CMS) (Primary Dx); Pre-op exam 12/01/2023 Patient Outreach [address] [address] Carmelo Hendrickson 11/22/[address] [phone] Carrington Calderon MD Results 11/18/2023 Community Health Team [address] [id number] Care Management, [facility] 11/16/2023 11:00 EDT Telemedicine [facility] Gastroenterology - Main [address] 118241 Scott Arzate MD Cyclic vomiting syndrome (Primary Dx) 11/15/2023 Patient Outreach [address] [address] Abigail Díaz Encounter for screening involving social determinants of health (SDoH) (Primary Dx) 11/11/2023 13:30 EDT Phlebotomy Only [facility] Laboratory Services - [address] [address] Lining Stamper, [facility] Abnormal thyroid blood test; Encounter for screening for other viral diseases 11/11/2023 13:00 EDT Office Visit [address] [address] Carrington Calderon MD Type 2 diabetes mellitus [...] yrs+) 07/06/2021 Covid-19 mRNA-LNP Bivalent V accine (GlucoTec BIVALENT VACCINE) PF 0.3 mL IM (12 [...] smoking- clear secretions. Diabetes mellitus, type 2 ([facility]) pt check blood sugars at home- [...] Gastroparesis Neuropathic diabetic ulcer o f foot ([facility]) 09/17/2021 Family History Medical History Relation Comments [...] = 0.6 oz pur e alcohol) rarely [employer] Utilities Answer Date Recorded In the past 12 months has [employer], oil, or water [employer] threatened to shut off services in your [...] ; twin confirmed by US at [facility]; no medical or surgical tx 01/2015 SAB 9w0 d SAB Comments:D&C at [facility]; f irst current 08/2015 SAB 10w 0d SAB Comments:D&C at [facility]; 2 nd with current 02/2017 SAB 6w0 d SAB Comments:D&C at [facility]; t hird with current 06/2017 SAB 6w0 d SAB Comments:D&C at [facility]; nonviable seen on US; fourth with current 01/2018 SAB 6w0 d SAB Comments:D&C at [facility] after nonviable on US; had to have repeat D&C in April for retained POCs 10/2018 Ectopic 10w 4d ECTOPIC Comments:interstitial diagnosed at [facility]; given MTX 10/26/1810/2019 SAB Comments:D+C Last Filed [facility] - [address] [address] Carrington Calderon MD 1 [facility] 1 [place] [phone] 02/27/2024 8:30 EDT Telemedicine [facility] Sleep Program - [address] [phone] Dwight Colbert [address] [place] [phone] 02/29/2024 10:30 EDT Appointment [facility]ical Center Radiology Nuclear Medicine and PET [address] [phone] 02/29/2024 14:30 EDT Appointment [facility] Radiology Nuclear Medicine and PET [address] [phone] 03/01/2024 8:00 EDT Appointment [facility] Radiology Nuclear Medicine and PET [address] [phone] 03/01/2024 9:30 EDT Appointment [facility] Radiology Nuclear Medicine and PET [address] [phone] Health Maintenance Due Date Last Done Comments [...] polyneuropathy, with long-term current use of insulin ([facility]) LIPID PROFILE (INCLUDES CHOLESTEROL, TRIGLYCERIDES, HDL, LDL) Routine 11/28/2019 15:56 EDT Type 2 diabetes mellitus with other specified complication, 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 ([facility]) URINE [id number] NE RATIO (ACR) Routine 11/28/2019 15:56 EDT Type 2 diabetes mellitus with other specified complication, unspecified whether half-way insulin use ([facility]) from Last 3 Months or Most Recently Relevant to Health Maintenance Results * (ABNORMAL) OSMOLALITY (01/06/2024 11:15 EDT) Osmolality, Serum 308(H) 275 - 295 mOsm/kg 01/06/2024 17:33 EDT [facility] Blood VENOUS BLOOD / Unknown 01/06/2024 11:15 EDT 01/06/2024 17:04 EDT Provider Outr Resulting Lab CHEMISTRY & BLOOD GAS ORDERABLES [facility] [address] [place] [id number] * SURGICAL PATHOLOGY (01/02/2024 8:23 EDT) Note to Patient The following pathology results have been interpreted by your pathologist and may be available to you before your health provider has had the opportunity to review them. Please allow time for your provider to receive these results and explore management options, if applicable. 01/09/2024 11:58 EDT [facility] Final Diagnosis A. FOOT, LEFT, TRANSMETATARSAL AMPUTATION: - Skin and soft tissue with marked acute inflammation and necrosis involving the resection margin. - Underlying bone with acute osteomyelitis. - Two of five bone resection margins with extensive acute osteomyelitis (see comment). 01/09/2024 11:58 [facility] Diagnosis Comment Correlate with microbiology studies. 01/09/2024 11:58 [facility] Attestation By the signature below, the attending physician certifies that they have 1) personally conducted a gross and/or microscopic examination of the described specimen(s), and/or personally interpreted the results of laboratory testing of the described specimen(s), and 2) personally rendered or confirmed the above diagnosis. 01/09/2024 11:58 [facility] at 1158 Clinical History Diabetic foot ulcer 01/09/2024 11:58 [facility] Gross Description A. Received in [...] aggregate 8.0 x 3.5 x 2.5 cm. 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 as follows: BLOCK SHIELDS A1- plantar ulcer to closest skin and soft tissue margin of resection (inked blue), perpendicular A2- bone underlying plantar ulcer, following acid decalcification A3-A4- separately received transected bone margins, en face, following acid decalcification (differentially inked) EUNICE MAE(ASCP) 01/03/2024 10:29 01/09/2024 11:58 EDT [facility] Performing Lab [facility] 11:58 EDT [facility] Scanned Images 01/09/2024 11:58 EDT [facility] Tissue TRAUMATIC AMPUTATION OF UPPER LIMB / Unknown 01/02/2024 8:23 EDT 01/03/2024 8:00 EDT Madelin Ojeda MD PATHOLOGY ORDERABLES Performing Organization Address City/[facility]/ZIP Co de Phone Number [facility] [address] [place] [address] * (ABNORMAL) THYROID CASCADE (11/11/2023 13:53 EDT) TSH 0.37(L) 0.47 - 4.68 mIU/L 11/11/2023 15:38 EDT [facility] Blood VENOUS BLOOD / Unknown Venipuncture / Unknown 11/11/2023 13:53 EDT 11/11/2023 13:55 EDT Narrative [facility] - 11/11/2023 15:38 EDT NOTE: The results of this assay can be falsely lowered due to the consumption of Biotin. Carrington Calderon MD CHEMISTRY & BLOOD GAS ORDERABLES Performing Organization Address City/[facility]/ZIP Co de Phone Number [facility] [address] [place] [address] * HEPATITIS C AB W REFLEX TO HCV RNA BY PCR (11/11/2023 13:53 EDT) Hep C Antibody Negative Negative 11/11/2023 17:03 EDT [facility] Blood VENOUS BLOOD / Unknown Venipuncture / Unknown 11/11/2023 13:53 EDT 11/11/2023 13:55 EDT Carrington Calderon MD CHEMISTRY & BLOOD GAS ORDERABLES Performing Organization Address [facility]/ZIP Co de Phone Number [facility] [address] [place], [place] [phone] * HEPATITIS B PROFILE (11/11/2023 13:53 EDT) Hep B Surface Ag Negative Negative 11/11/19 17:04 EDT [facility] Hep B Surface Ab, Quantitative <3.1 See Note mIU/mL 11/11/2023 17:04 EDT [facility] Comment: Reference Range for Hep B Surface Ab, Quant: Positive: >= 10.0 mIU/mL Negative: ??< 10.0 mIU/mL Patient is presumed to not be immune to infection with Hepatitis B Virus. Hep B Surface Ab, Qualitative Negative See Note 11/11/2023 17:04 EDT [facility] Comment: Reference Range for Hep B Surface Ab, Qual: Unvaccinated: ??Negative Vaccinated: ??Positive Hepatitis B Core Ab, Total Negative Negative 11/11/2023 17:04 EDT [facility] Blood VENOUS BLOOD / Unknown Venipuncture / Unknown 11/11/2023 13:53 EDT 11/11/2023 13:55 EDT Carrington Calderon MD CHEMISTRY & BLOOD GAS ORDERABLES Performing Organization Address [facility] Co de Phone Number [facility] [address] [place], [place] [phone] * HIV 1/2 ANTIGEN AND ANTIBODY, 4TH GENERATION (11/11/2023 13:53 EDT) HIV 1 and 2 Antibody/p24 Antigen, 4th Generation Negative Negative 11/11/2023 17:04 EDT [facility] Comment:If acute HIV-1 infec tion is suspected in a high risk patient, submit plasma specimen for HIV-1 RNA quantitation test. Blood VENOUS BLOOD / Unknown Venipuncture / Unknown 11/11/2023 13:53 EDT 11/11/2023 13:55 EDT Narrative [facility] - 11/11/2023 17:04 EDT Fourth Generation assay performed on the Siemens Centaur XPT. Carrington Calderon MD IMMUNOLOGY AND SEROLOGY ORDERABLES Performing Organization Address [facility] Co de Phone Number [facility] [address] [place], [place] [address] * T3, TOTAL (11/11/2023 13:53 EDT) T3, Total 137 97 - 169 ng/dL 11/11/2023 17:27 EDT [facility] Blood VENOUS BLOOD / Unknown Venipuncture / Unknown 11/11/2023 13:53 EDT 11/11/2023 13:55 EDT Carrington Calderon MD CHEMISTRY & BLOOD GAS ORDERABLES Performing Organization Address [facility] Co de Phone Number [facility] [address] [place] [phone] * T4 FREE (11/11/2023 13:53 EDT) T4, Free 1.1 0.8 - 2.2 ng/dL 11/11/2023 16:08 EDT [facility] Blood VENOUS BLOOD / Unknown Venipuncture / Unknown 11/11/2023 13:53 EDT 11/11/2023 13:55 EDT Carrington Calderon MD CHEMISTRY & BLOOD GAS ORDERABLES Performing Organization Address [facility] Co de Phone Number [facility] [address] [place], [place] [address] * PAP TEST (06/27/2023 16:00 EST) Specimens A. Cervix and/or Endocervix , ThinPrep Imaging System with Manual Evaluation 07/13/2023 16:25 EST [facility] Specimen Adequacy Satisfactory for Evaluation - transformation zone component absent 07/13/2023 16:25 EST [facility] General Categorization Negative for intraepithelial lesion or malignancy 07/13/2023 16:25 [facility] Attestation . 07/13/2023 16:25 [facility] at 1625 Clinical History screening 07/13/19 24 16:25 [facility] HPV The result for the Human Papillomavirus (HPV) Detection-High Risk Types is Negative. No E6 or E7 mRNA is detected from HPV types 16,18,31,33,35,39 ,45,51,52,56,58,5 9,66, and 68 by combine driver mediated amplification.Lorena ting was performed on specimen [id number] and was resulted on 07/13/2023 1625 EST by JANET, LAB INSTRUMENT RESULTS IN 07/13/2023 16:25 [facility] Performing Lab [facility] 07/13/2023 16:25 [facility] Scanned Images 07/13/2023 16:25 [facility] Pap Test CERVIX UTERI STRUCTURE / Unknown 06/27/2023 16:00 EST 06/27/2023 16:00 EST Carrington Calderon MD PATHOLOGY O RDERABLES Performing Organization Address City/State/[facility] Co de Phone Number [facility] [address] [place] [address] * (ABNORMAL) HEMOGLOBIN A1C (03/14/2023 15:19 EDT) Hemoglobin A1c 8.3(H) <5.7 % 03/14/2023 22:02 T [facility] Comment: Glycemic Status References: Normal: ??<5.7% Pre-Diabetes: ??5.7% - 6.4% Diagnostic of Diabetes: ??> or = 6.5% (if confirmed) Est Avg Glucose 192 mg/dL 22:02 [facility] Comment:The eAG represents t he A1c result expressed as average glucose in mg/dL. Blood VENOUS BLOOD / Unknown Venipuncture / Unknown 03/14/2023 15:19 EDT 03/14/2023 15:19 EDT Carrington Calderon MD CHEMISTRY & BLOOD GAS ORDERABLES Performing Organization Address [facility] Co de Phone Number [facility] [address] [place] [address] * (ABNORMAL) ALBUMIN, URINE (11/28/2019 15:56 EDT) Albumin, Urine 11.3 See Note mg/dL 2019 16:47 EDT [facility] Comment: NOTE: Reference range not established Creatinine, Urine 143.1 See Note mg/dL 11/28/2019 16:47 EDT [facility] Comment: NOTE: Reference range not established Lab Urine Albumin to Creatinine Ratio 79(H) <30 ug/mg Creatinine 11/28/2019 16:47 EDT [facility] Comment: Urine Albumin/Creatinine Ratio: Normal: <30 ug/mg Creatinine Moderately increased albuminuria: 30-300 ug/mg Creatinine Severley increased albuminuria: >300 ug/mg Creatinine Urine URINE SPECIMEN OBTAINED BY CLEAN CATCH PROCEDURE / Unknown Urine Collect / Unknown 11/28/2019 15:56 EDT 11/28/2019 15:56 EDT Tonja Alejandro PA-C CHEMISTRY & BLOOD GAS ORDERABLES Performing Organization Address City/[facility] Co de Phone Number [facility] [address] [place] [address] * LIPID PROFILE (INCLUDES CHOLESTEROL, TRIGLYCERIDES, HDL, LDL) (11/28/2019 15:56 EDT) Cholesterol 179 See Note mg/dL 11/28/2019 17:12 EDT [facility] Comment: Acceptable: ?<200 mg/dL Borderline High: 200-239 mg/dL High: ?> or = 240 mg/dL HDL 38 See Note mg/dL 11/28/2019 17:12 EDT [facility] Comment: Low: ? <40 mg/dL Normal: ??40-60 mg/dL High: ?>60 mg/dL LDL, Calculated 61 See Note mg/dL 11/28/2019 17:12 [facility] Comment: Optimal: ? <100 mg/dL Near Optimal: ?100-129 mg/dL Borderline High: 130-159 mg/dL High: ?160-189 mg/dL Very High: ? > or = 190 mg/dL Triglyceride 398 See Note mg/dL 11/28/2019 17:12 [facility] Comment: Normal: ? <150 mg/dL Borderline High: ??150 - 199 mg/dL High: ? 200 - 499 mg/dL Very High: ?> or = 500 mg/dL Chol/HDL Ratio 4.7 See Note 11/28/2019 17:12 T [facility] Comment: No reference range has been established for CHOL/HDL ratio. Non HDL Cholesterol 141 See Note mg/dL 11/28/2019 17:12 [facility] Comment: Desirable: ?<130 mg/dL Borderline High: ??130-159 mg/dL High: ? 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 Patient Care Teams Severity Of Illness Coordinator Relationship Specialty Start Date End Date Carrington Calderon MD 1 [facility] 1 [place] [address] PCP - General Internal Medicine - Primary Care 12/09/20 Carmelo Hendrickson Coordinator 12/01/23 Abigail Díaz Rail Car Repairer 01/04/24
--- OUTSIDE RECORDS SUMMARY | 2024-02-10 01:14 | XMS_ITS | Encounter Summary ---
Author Organization [facility] [place] [address] Care Team Providers Care Space Planner Name Role Phone Carrington Calderon MD Primary Care Provider [phone] Encounter Details Date Type Department Care Team (Late st Contact Info) Description 02/07/2024 [place] [phone] None None Social History Tobacco Use Types Packs/Day Years Used Date Smoking Tobacco: Every Day Cigarettes Smokeless Tobacco: Never Sex and Gender Information Value Date Recorded Sex Assigned at Not on file Gender Identity Not on file Sexual Orientation Not on file documented as of this encounter Miscellaneous Notes * Telephone Encounter - Mignon Parisi M - 02/07/2024 11:59 AM EDT CLINIC PHONE COVERAGE: Reason for Call: Referral Issues PCP: Carrington Calderon MD / Treating provider: Message: Niru from [facility] Radiology called and stated that they received the referral for the patients MRI. Niru stated in addition to the referral they received, theywill need a Hard copy of the Insurance Authorization, Patients Insurance Information, and the safety questionaire. Please call with any questions. Caller Name (If other than patient): Niru - Radiology Relationship to Patient (if other than self): [facility], [place], [place] Radiology Callback number: [phone] Best time you are available: Any Route Per Clinic Coverage Page documented in this encounter Plan of Treatment Upcoming Encounters Date Type Department Care Team (Late st Contact Info) Description 03/15/2024 1:30 PM EDT Office [place] [address] Jackie Javier MD [facility] DR [place] [address] documented as of this encounter Visit Diagnoses Not on filedocumented in this encounter Care Teams Space Planner Relationship Specialty Start Date End Date Carrington Calderon MD 1 [facility] 1 [place] [address] PCP - General Internal Medicine 01/16/24 documented as of this encounter
--- OUTSIDE RECORDS SUMMARY | 2024-02-10 01:14 | XMS_ITS | Encounter Summary ---
Author Organization [facility] [place] [address] Care Team Providers Care Dextrine Mixer Name Role Phone Carrington Calderon MD Primary Care Provider [phone] Encounter Details Date Type Department Care Team (Late st Contact Info) Description 02/03/2024 Telephone [place] [address] Olive Anna, RN Social History Tobacco Use [...] PM EDT Office [place] [address] Jackie Javier MD [facility] [place] [address] documented as of this encounter Visit Diagnoses Not on filedocumented in this encounter Care Teams Dextrine Mixer Relationship Specialty Start Date End Date Carrington Calderon MD 1 [facility] 1 [place] [phone] PCP - General Internal Medicine 01/16/24 documented as of this encounter
--- OUTSIDE RECORDS SUMMARY | 2024-02-10 01:14 | XMS_ITS | Encounter Summary ---
Author Organization [facility] Address [facility] [place] [address] Care Team Providers Care Automation Controls Expert Name Role Phone Carrington Calderon MD Primary Care Provider [phone] Reason for Visit * Treatment/Therapy Plan Authorization (Routine) - Pending Review Specialty Diagnoses / Procedures Referred By Contac t Referred To Contact Diagnoses Osteomyelitis, unspecified site, unspecified type Procedures TC DALBAVANCIN, 5 MG, INJECTION Jackie Javire MD [facility] [place] [address] [facility] Med Infusion [address] [place] [address] Referral ID Status Reason Start Date Expiration Date V isits Requested Visits Authorized [id number] Pending Review 02/03/2024 02/02/2025 99 99 Encounter Details Date Type Department Care Team (Latest Contact Info) Description 02/03/2024 12:12 PM EDT - 02/03/2024 11:59 PM EDT Hospital En[place] [address] Osteomyelitis, unspecified site, unspecified type; [...] PM EDT Office [place] [address] Jackie Javier MD [facility] [place] [address] documented as of this encounter Procedures Procedure [...] 12.3(H) <=4.9 mg/L 02/03/2024 1:43 PM EDT [facility] Blood VENOUS BLOOD SPECIMEN / Unknown Venipuncture / Unknown 02/03/2024 12:38 PM EDT 02/03/2024 1:00 PM EDT Jackie Javier MD CHEMISTRY ORDERABLES [facility] [place] [place] [address] * (ABNORMAL) Comprehensive metabolic panel (02/03/2024 12:38 PM EDT) Glucose 306(H) 65 - 199 mg/dL 02/03/2024 1:43 PM EDT [facility] Comment:Glucose Concentratio n >=200 mg/dL plus symptoms is consistent with Diabetes Mellitus. Blood Urea Nitrogen 9 8 - 18 mg/dL 02/03/2024 1:43 PM EDT [facility] Creatinine 0.56(L) 0.70 - 1.20 mg/dL 02/03/2024 1:43 PM EDT [facility] Sodium 133(L) 135 - 145 mMol/L 02/03/2024 1:43 PM EDT [facility] Potassium 4.4 3.5 - 5.0 mMol/L 02/03/2024 1:43 PM EDT [facility] Chloride 96(L) 98 - 107 mMol/L 02/03/2024 1:43 PM EDT [facility] Carbon Dioxide 25 22 - 31 mMol/L 02/03/2024 1:43 PM EDT [facility] Anion Gap 12 5 - 15 mMol/L 02/03/2024 1:43 PM EDT [facility] Calcium 9.8 8.5 - 10.5 mg/dL 02/03/2024 1:43 PM EDT [facility] Protein, Total 7.5 6.1 - 8.0 g/dL 02/03/2024 1:43 PM EDT [facility] Albumin 4.1 3.2 - 5.2 g/dL 02/03/2024 1:43 PM EDT [facility] Aspartate Aminotransferase 12 <=30 unit/L 02/03/2024 1:43 PM EDT [facility] Alanine Aminotransferase 13 0 - 30 unit/L 02/03/2024 1:43 PM EDT [facility] Alkaline Phosphatase 138(H) 35 - 105 unit/L 02/03/2024 1:43 PM EDT [facility] Bilirubin, Total <0.2 <=1.3 mg/dL 02/03/2024 1:43 PM EDT [facility] Est Glomerular Filtration Rate - Female 120 mL/min/1. 73 m?? 02/03/2024 1:43 PM EDT [facility] Comment: This patient's estimated GFR [...] Fasting Status No 02/03/2024 1:43 PM EDT [facility] Blood VENOUS BLOOD SPECIMEN / Unknown Venipuncture / Unknown 02/03/2024 12:38 PM EDT 02/03/2024 1:00 PM EDT Jackie Javier MD CHEMISTRY ORDERABLES [facility] [place] [address] * (ABNORMAL) CBC (with Diff) (02/03/2024 12:38 PM EDT) White Blood Cell 18.69(H) 4.00 - 9.50 x10(3)/mc L 02/03/2024 1:21 PM EDT [facility] Red Blood Cell 4.62 4.00 - 5.21 x10(6)/mc L 02/03/2024 1:21 PM EDT [facility] Hemoglobin 14.3 11.7 - 15.5 g/dL 02/03/2024 1:21 PM [facility] Hematocrit 43.0 35.7 - 45.8 % 02/03/2024 1:21 PM [facility] Mean Cell Volume 93.1 82.6 - 94.4 fL 02/03/2024 1:21 PM [facility] Mean Cell Hemoglobin 31.0 27.1 - 32.0 pg 02/03/2024 1:21 PM [facility] Mean Cell Hemoglobin Concentration 33.3 31.7 - 35.0 g/dL 02/03/2024 1:21 PM [facility] Platelet 405(H) 145 - 357 x10(3)/mc L 02/03/2024 1:21 PM [facility] Mean Platelet Volume 9.6 7.6 - 12.9 fL 02/03/2024 1: PM [facility] RDW Standard Deviation 43.9 37.0 - 46.0 fL 02/03/2024 1: PM [facility] RDW coefficient of variation 12.9 11.5 - 14.1 % 02/03/2024 1: PM [facility] NRBC% auto 0.0 % 02/03/2024 1: PM [facility] NRBC Absolute 0.00 0.00 - 0.00 x10(3)/mc L 02/03/2024 1: PM [facility] Neutrophil % 63.6 % 02/03/2024 1:21 PM [facility] Neutrophil Absolute (ANC) - Automated 11.90(H) 1.70 - 6.10 x10(3)/mc L 02/03/2024 1: PM [facility] Lymph % 26.2 % 02/03/2024 1:21 PM [facility] Lymph Absolute 4.90(H) 0.90 - 3.20 x10(3)/mc L 02/03/2024 1:21 PM EDT [facility] Monocyte % 7.3 % 02/03/2024 1:21 PM EDT [facility] Monocyte Absolute 1.36(H) 0.30 - 0.90 x10(3)/mc L 02/03/2024 1:21 PM EDT [facility] Eos % 2.0 % 02/03/2024 1:21 PM EDT [facility] Eos Absolute 0.37 0.00 - 0.40 x10(3)/mc L 02/03/2024 1:21 PM EDT [facility] Basophil % 0.5 % 02/03/2024 1:21 PM EDT [facility] Baso Absolute 0.09 0.00 - 0.10 x10(3)/mc L 02/03/2024 1:21 PM EDT [facility] Immature Gran % 0.4 % 1:21 PM EDT [facility] Immature Gran Absolute 0.07(H) 0.00 - 0.04 x10(3)/mc L 02/03/2024 1:21 PM EDT [facility] Blood VENOUS BLOOD SPECIMEN / Unknown Venipuncture / Unknown 02/03/2024 12:38 PM EDT 02/03/2024 1:00 PM EDT Jackie Javier MD HEMATOLOGY ORDERABLE S Performing Organization Address City/State/[facility] Co de Phone Number [facility] [place] [address] documented in this encounter Visit Diagnoses Diagnosis [...] mL/hr documented in this encounter Care Teams Automation Controls Expert Relationship Specialty Start Date End Date Carrington Calderon MD 1 [facility] Level 1 [place] [address] PCP - General Internal Medicine 01/16/24 documented as of this encounter
--- OUTSIDE RECORDS SUMMARY | 2024-02-10 01:14 | XMS_ITS | Encounter Summary ---
Author Organization [facility] [place] [address] Care Team Providers Care Telescope Repairer Name Role Phone Carrington Calderon MD Primary Care Provider [phone] Encounter Details Date Type Department Care Team (Late st Contact Info) Description 02/09/2024 Telephone [place] [phone] None None Social History Tobacco Use Types Packs/Day Years Used Date Smoking Tobacco: Every Day Cigarettes Smokeless Tobacco: Never Sex and Gender Information Value Date Recorded Sex Assigned at Not on file Gender Identity Not on file Sexual Orientation Not on file documented as of this encounter Miscellaneous Notes * Telephone Encounter - Joleen Crowder Shiva - 02/09/2024 11:50 AM EDT CLINIC PHONE COVERAGE: Reason for Call: Medication Issue PCP: Carrington Calderon MD / Treating provider: Yaya Message: Pharmacy called stating that this Rx is not filled through a retail pharmacy typically. This Rx is usually administered to patient through IV by home health provider or in a facility. Name of Medication: dextrose 5% Parenteral Solution Name of Prescriber: Jackie Javier MD Name of Pharmacy: [facility] Address for Pharmacy: [address] [place] [address]/[facility] & State for Pharmacy: [place] Is the Patient Currently at the Pharmacy: No Caller Name (If other than patient): Mignon Relationship to Patient (if other than self): [facility] Callback number: [phone] Best time you are available: Any documented in this encounter Plan of Treatment Upcoming Encounters Date Type Department Care Team (Late st Contact Info) Description 03/15/2024 1:30 PM EDT Office Visit [place] [address] Jackie Javier MD [facility] [place] [address] documented as of this encounter Visit Diagnoses Not on filedocumented in this encounter Care Teams Telescope Repairer Relationship Specialty Start Date End Date Carrington Calderon MD 1 [facility] 1 [place] [address] PCP - General Internal Medicine 01/16/24 documented as of this encounter
--- OUTSIDE RECORDS SUMMARY | 2024-02-10 01:14 | XMS_ITS | Encounter Summary ---
Author Organization [facility] [place] [address] Care Team Providers Care Echo Vascular Technologist Name Role Phone Carrington Calderon MD Primary Care Provider [phone] Reason for Referral * Consultation (Routine) - Authorized Specialty Diagnoses / Procedures Referred By Contac t Referred To Contact Infectious Diseases Diagnoses Diabetic foot ulcer with osteomyelitis Jackie Javier MD [facility] [place] [address] Jackie Javier MD [facility] [place] [address] Referral ID Status Reason Start Date Expiration Date Visits Requested Visits Authorized [id number] Authorized Assume Subset of Care 02/07/2024 02/06/2025 1 1 Encounter Details Date Type Department Care Team (Late st Contact Info) Description 02/07/2024 Orders [place] [address] Jackie Javier MD [facility] INFECTIOUS DISEASE [place] [id number] Diabetic foot ulcer with osteomyelitis Social History [...] PM EDT Office [place] [address] Jackie Javier MD [facility] [place] [address] Scheduled Referrals Name Type Priority Associated Diagnoses Orde r Schedule OPAT: Order / Recommendation for Post Discharge IV Antibiotic Management Outpatient Referral Routine Diabetic foot ulcer with osteomyelitis Ordered: 02/07/2024 documented as of this encounter Visit Diagnoses Diagnosis Diabetic foot ulcer with osteomyelitis Type II or unspecified type diabetes mellitus with other specified manifestations, not stated as uncontrolled documented in this encounter Care Teams Echo Vascular Technologist Relationship Specialty Start Date End Date Carrington Calderon MD 1 [facility] Level 1 [place] [address] PCP - General Internal Medicine 01/16/24 documented as of this encounter
--- OUTSIDE RECORDS SUMMARY | 2024-02-10 01:15 | XMS_ITS | Encounter Summary ---
Author Organization [facility] Address [address] [place] [address] Care Team Providers Care Content Management Consultant Name Role Phone Carrington Caldreon MD Primary Care Provi anders Abigail Díaz Unavailable Reason for Visit * Reason Comments New Patient Visit * Consult (Routine/Next Available) - Specialty Report Received Specialty Diagnoses / Procedures [facility]erred By [place] [facility] Referred To Contact Hematology Diagnoses Night sweats Lymphocytosis Carrington Calderon MD 1 [facility] 1 [place] [address] [facility] Ep2 Hem/Onc [address] [place] [address] Referral ID Status Reason Start Date Expiration Date Visits Requested Visits Authorized [id number] Specialty Report Received Specialty Services Required 06/27/2023 1 1 Encounter Details Date Type Department Care Team (Late st Contact Info) Description 08/05/2023 11:00 EST Office Visit [facility] Hematology & Oncology - [address] [phone] Josh Clayton MD 111 [facility] 2 [place] [phone] Bandemia (Primary Dx) Social History Tobacco Use [...] results, and documentation. 08/05/2023 Josh Clayton MD Educational Adviser, Division of Hematology / Oncology [facility] -------- NON FACE TO FACE PROLONGED SERVICES Date of related [id number] encounter 08/05/2023. Pre visit preparation performed on [...] Visit [facility] Adult Primary Care - [address] [address] Carrington Calderon MD [address] [phone] 02/27/2024 8:30 EDT Telemedicine [facility] Sleep Program - [address] 578371 Dwight Colbert [address] [place] [phone] 02/29/2024 10:30 EDT Appointment [facility] Radiology Nuclear Medicine and PET - [address] [id number] 02/29/2024 14:30 EDT Appointment [facility] Radiology Nuclear Medicine and PET [address] [id number] 03/01/2024 8:00 EDT Appointment [facility] Radiology Nuclear Medicine and PET - [address] [id number] 03/01/2024 9:30 EDT Appointment [facility] Radiology Nuclear Medicine and PET [address] [id number] documented as of this encounter Visit Diagnoses Diagnosis Bandemia- Primary documented in this encounter Care Teams Content Management Consultant Relationship Specialty Start Date End Date Carrington Calderon MD 1 [facility] 1 [place] [address] PCP - General Internal Medicine - Primary Care 12/09/20 Abigail Díaz Out Patient Therapist 04/21/23 01/03/24 documented as of this encounter
--- OUTSIDE RECORDS SUMMARY | 2024-02-10 01:15 | XMS_ITS | Encounter Summary ---
Author Organization [facility] Address [address] [place] [address] Care Team Providers Care Artifacts Conservator Name Role Phone Carrington Calderon MD Primary Care Provi anders Abigail Díaz Unavailable [phone] Reason for Visit * Reason Comments Follow-up Gastroparesis / 6 Mo [facility] Follow-Up * Consult (Routine) - Receiving Office to Obtain Authorization Specialty Diagnoses / Procedures Referred By Kit goode Referred To Contact Diagnoses Gastroparesis Dale Collier MD [address] [place] [address] [place] [address] [employer] [address] [place] [address] Referral ID Status Reason Start Date Expiration Date Visits Requested Visits Authorized [id number] Receiving Office to Obtain Authorization Specialty Services Required 1 1 Encounter Details Date Type Department Care Team (Late st Contact Info) Description 11/16/2023 11:00 EDT Telemedicine [facility] Gastroenterology - [address] [address] Scott Arzate MD 111 [facility], Level [address] [place] [phone] Cyclic vomiting syndrome (Primary Dx) Social History Tobacco Use Types Packs/Day Years Used Date Smoking Tobacco: Every Day Cigarettes 0.5 13.2 Started: 11/10/2010 Smokeless Tobacco: Never Tobacco Cessation:Ready to Q uit: Not Asked; Counseling Given: Not Answered Comments:06/13/20 actively trying to quit about 5-8 cigs/day Alcohol Use Standard Drinks/Week Comments Yes 0 (1 standard drink = 0.6 oz pur e alcohol) rarely [facility] Utilities Answer Date Recorded In the past 12 months has th e [employer], [employer], oil, or water [employer] threatened to shut off services in your [...] lives) Patient location state: Visit Location State: [place] The location of the provider: Office Provider location state: Visit Location State: [place] The following people and their roles were [...] [facility] Adult Primary Care - [address] [address]121 Carrington Calderon MD [address] [phone] 02/27/2024 8:30 EDT Telemedicine [facility] Sleep Program - [address] [phone] Dwight Colbert [address] [place] [phone] 02/29/2024 10:30 EDT Appointment [facility] Radiology Nuclear Medicine and PET - [address] [phone] 02/29/2024 14:30 EDT Appointment [facility] Radiology Nuclear Medicine and PET - [address] [address] 03/01/2024 8:00 EDT Appointment [facility] Radiology Nuclear Medicine and PET [address] [address] 03/01/2024 9:30 EDT Appointment [facility] Radiology Nuclear Medicine and PET [address] [address] documented as of this encounter Visit Diagnoses Diagnosis Cyclic vomiting syndrome- Primary Persistent vomiting documented in this encounter Care Teams Artifacts Conservator Relationship Specialty Start Date End Date Carrington Calderon MD 1 [facility] Level 1 [place] [address] PCP - General Internal Medicine - Primary Care 12/09/20 Abigail Díaz Powerhouse Engineer 04/21/23 01/03/24 documented as of this encounter
--- OUTSIDE RECORDS SUMMARY | 2024-02-10 01:15 | XMS_ITS | Encounter Summary ---
Author Organization [facility] Address [address] [place] [address] Care Team Providers Care Rescue Instructor Name Role Phone Carrington Calderon MD Primary Care Provi anders Abigail Díaz Unavailable [phone] Carmelo Hendrickson Unavailable Unavailable Encounter Details Date Type Department Care Team (Late st Contact Info) Description 12/02/2023 Patient Outreach [facility] Adult Primary Care - [place] [facility] [address] [place], [place] [phone] Abigail Díaz Social History Tobacco Use Types Packs/Day Years Used Date Smoking Tobacco: Every Day Cigarettes 0.5 13.2 Started: 11/10/2010 Smokeless Tobacco: Never Comments:06/13/20 actively try ing to quit about 5-8 cigs/day Alcohol Use Standard Drinks/Week Comments Yes 0 (1 standard drink = 0.6 oz pur e alcohol) rarely [facility] Utilities Answer Date Recorded In the past 12 months has [employer], gas, oil, or water company threatened to [...] time in the past 12 m [facility], were you homeless or living [...] Abigail Díaz - 12/02/2023 0905 EDT [facility] Deputy Manager Care Coordination Care management phone consult as scheduled, pt did not answer phone. beverage manager called and left voicemail requesting call back to reschedule. Additional outreach planned documented in this encounter Plan of Treatment Upcoming Encounters Date Type Department Care Team (Late st Contact Info) Description 02/21/2024 9:45 EDT Office Visit [facility] Adult Primary Care - [address] [phone] Carrington Calderon MD 1 [facility] 1 [place] [address] 02/27/2024 8:30 EDT Telemedicine [facility] Sleep Program - [address] [address] Sayra Dwight [address] [place] [address] 02/29/2024 10:30 EDT Appointment [facility] Radiology Nuclear Medicine and PET [address] [address] 02/29/2024 14:30 EDT Appointment [facility] Radiology Nuclear Medicine and PET - [address] [address] 03/01/2024 8:00 EDT Appointment [facility] Radiology Nuclear Medicine and PET [address] 964981 03/01/2024 9:30 EDT Appointment [facility] Radiology Nuclear Medicine and PET [address] [address] documented as of this encounter Visit Diagnoses Not on filedocumented in this encounter Care Teams Rescue Instructor Relationship Specialty Start Date End Date Carrington Calderon MD [address] [phone] PCP - General Internal Medicine - Primary Care 12/09/20 Abigail Díaz Deputy Manager 04/21/23 01/03/24 Carmelo Hendrickson Coordinator 12/01/23 documented as of this encounter
--- OUTSIDE RECORDS SUMMARY | 2024-02-10 01:15 | XMS_ITS | Encounter Summary ---
Author Organization [facility] Address [address] [place] [address] Care Team Providers Care Director Of Exhibit Development Name Role Phone Carrington Calderon MD Primary Care Provi anders Abigail Díaz Unavailable Carmelo Hendrickson Unavailable Unavailable Encounter Details Date Type Department Care Team (Late st Contact Info) Description 12/09/2023 Orders Only [facility] Radiology - Main [place] [address] [place], [place] [phone] Teresita Fitzpatrick MD [address] [place] [address] Social History Tobacco Use Types Packs/Day Years Used Date Smoking Tobacco: Every Day Cigarettes 0.5 13.2 Started: 11/10/2010 Smokeless Tobacco: Never Comments:06/13/20 actively try ing to quit about 5-8 cigs/day Alcohol Use Standard Drinks/Week Comments Yes 0 (1 standard drink = 0.6 oz pur e alcohol) rarely C Utilities Answer Date Recorded In the past 12 months has [employer], gas, oil, or water company threatened to [...] [facility] Adult Primary Care - [address] [phone] Carrington Calderon MD [address] [phone] 02/27/2024 8:30 EDT Telemedicine [facility] Sleep Program - [address] 0789[address] Dwight Colbert [address] [place], [place] [address] 02/29/2024 10:30 EDT [facility] Radiology Nuclear Medicine and PET - [address] [address] 02/29/2024 14:30 EDT [facility] and PET - [address] [address] 03/01/2024 8:00 EDT [facility] and PET - [address] [address] 03/01/2024 9:30 EDT Appointment [facility] Radiology Nuclear Medicine and PET - [address] [address] documented as of this encounter Visit Diagnoses Not on filedocumented in this encounter Care Teams Director Of Exhibit Development Relationship Specialty Start Date End Date Carrington Calderon MD 1 [facility] 1 [place] [address] PCP - General Internal Medicine - Primary Care 12/09/20 Abigail Díaz Marriage And Family Social Worker 04/21/23 01/03/24 Carmelo Hendrickson Coordinator 12/01/23 documented as of this encounter
--- OUTSIDE RECORDS SUMMARY | 2024-02-10 01:15 | XMS_ITS | Encounter Summary ---
Author Organization [facility] Address [address] [place] [address] Care Team Providers Care Hard Tile Setter Name Role Phone Carrington Calderon MD Primary Care Provi anders NelsyClayAbigail Unavailable Encounter Details Date Type Department Care Team (Late st Contact Info) Description 11/11/2023 13:30 EDT Phlebotomy Only [facility] Services - [address] [address] Protein Specialist, [facility] Abnormal thyroid blood test; Encounter for screening for other viral diseases Social History Tobacco Use Types Packs/Day Years Used Date Smoking Tobacco: Former Cigarettes 0.5 13.2 S tarted: 11/10/2010 Smokeless Tobacco: Never Comments:06/13/20 actively try ing to quit about 5-8 cigs/day Alcohol Use Standard Drinks/Week Comments Yes 0 (1 standard drink = 0.6 oz pur e alcohol) rarely [facility] Utilities Answer Date Recorded In the past 12 months has [employer], gas, oil, or water [employer] threatened to shut off services in your [...] any time in the past 12 m [facility], were you homeless or [...] [facility] - [address] [address] Carrington Calderon MD 1 [facility] 1 [place] [address] 02/27/2024 8:30 EDT Telemedicine [facility] Sleep Program - [address] [phone] Dwight Colbert [address] [place] [address] 02/29/2024 10:30 EDT Appointment [facility] Radiology Nuclear Medicine and PET [address] 9[address]871 02/29/2024 14:30 EDT Appointment [facility] Radiology Nuclear Medicine and PET [address] 575251 03/01/2024 8:00 EDT Appointment [facility] Radiology Nuclear Medicine and PET [address] 490901 03/01/2024 9:30 EDT Appointment [facility] Radiology Nuclear Medicine and PET [address] 585661 documented as of this encounter Procedures Procedure [...] 169 ng/dL 11/11/2023 17:27 EDT [facility] Blood VENOUS BLOOD / Unknown Venipuncture / Unknown 11/11/2023 13:53 EDT 11/11/2023 13:55 EDT Carrington Calderon MD CHEMISTRY & BLOOD GAS ORDERABLES Performing Organization Address City/[facility]/ZIP Co de Phone Number [facility] [address] [place] [address] * T4 FREE (11/11/2023 13:53 EDT) Pathologist [facility] T4, Free 1.1 0.8 - 2.2 ng/dL 11/11/2023 16:08 EDT [facility] Blood VENOUS BLOOD / Unknown Venipuncture / Unknown 11/11/2023 13:53 EDT 11/11/2023 13:55 EDT Carrington Calderon MD CHEMISTRY & BLOOD GAS ORDERABLES [facility] [address] [place] [address] * HIV 1/2 ANTIGEN AND ANTIBODY, 4TH GENERATION (11/11/2023 13:53 EDT) Pathologist [facility] HIV 1 and 2 Antibody/p24 Antigen, 4th Generation Negative Negative 11/11/2023 17:04 EDT [facility] Comment:If acute HIV-1 infec tion is suspected in a high risk patient, submit plasma specimen for HIV-1 RNA quantitation test. Blood VENOUS BLOOD / Unknown Venipuncture / Unknown 11/11/2023 13:53 EDT 11/11/2023 13:55 EDT Narrative [facility] - 11/11/2023 17:04 EDT Fourth Generation assay performed on the Siemens StepUpaur XPT. Carrington Calderon MD IMMUNOLOGY AND SEROLOGY ORDERABLES Performing Organization Address City/[facility]/ZIP Co de Phone Number [facility] [address] [place] [address] * HEPATITIS C AB W REFLEX TO HCV RNA BY PCR (11/11/2023 13:53 EDT) Hep C Antibody Negative Negative 11/11/2023 17:03 EDT [facility] Blood VENOUS BLOOD / Unknown Venipuncture / Unknown 11/11/2023 13:53 EDT 11/11/2023 13:55 EDT Carrington Calderon MD CHEMISTRY & BLOOD GAS ORDERABLES Performing Organization Address [facility] Co de Phone Number [facility] [address] [place] [address] * HEPATITIS B PROFILE (11/11/2023 13:53 EDT) Hep B Surface Ag Negative Negative 11/11/19 17:04 EDT [facility] Hep B Surface Ab, Quantitative <3.1 See Note mIU/mL 11/11/2023 17:04 EDT [facility] Comment: Reference Range for Hep B Surface Ab, Quant: Positive: >= 10.0 mIU/mL Negative: ??< 10.0 mIU/mL Patient is presumed to not be immune to infection with Hepatitis B Virus. Hep B Surface Ab, Qualitative Negative See Note 11/11/2023 17:04 EDT [facility] Comment: Reference Range for Hep B Surface Ab, Qual: Unvaccinated: ??Negative Vaccinated: ??Positive Hepatitis B Core Ab, Total Negative Negative 11/11/2023 17:04 EDT [facility] Blood VENOUS BLOOD / Unknown Venipuncture / Unknown 11/11/2023 13:53 EDT 11/11/2023 13:55 EDT Carrington Calderon MD CHEMISTRY & BLOOD GAS ORDERABLES Performing Organization Address [facility] Co de Phone Number [facility] [address] [place], [place] [address] * (ABNORMAL) THYROID CASCADE (11/11/2023 13:53 EDT) TSH 0.37(L) 0.47 - 4.68 mIU/L 11/11/2023 15:38 EDT [facility] Blood VENOUS BLOOD / Unknown Venipuncture / Unknown 11/11/2023 13:53 EDT 11/11/2023 13:55 EDT Narrative [facility] - 11/11/2023 15:38 EDT NOTE: The results of this assay can be falsely lowered due to the consumption of Biotin. Carrington Calderon MD CHEMISTRY & BLOOD GAS ORDERABLES Performing Organization Address [facility] Co de Phone Number [facility] [address] [place] [address] documented in this encounter Visit Diagnoses Diagnosis Abnormal thyroid blood test Nonspecific abnormal results of thyroid function study Encounter for screening for other viral diseases documented in this encounter Care Teams Hard Tile Setter Relationship Specialty Start Date End Date Carrington Calderon MD 1 [facility] 1 [place] [address] PCP - General Internal Medicine - Primary Care 12/09/20 Abigail Díaz Retail Loss Prevention Specialist 04/21/23 01/03/24 documented as of this encounter
--- OUTSIDE RECORDS SUMMARY | 2024-02-10 01:15 | XMS_ITS | Encounter Summary ---
Author Organization [facility] Address [address] [place] [address] Care Team Providers Care Finish Sander Name Role Phone Carrington Calderon MD Primary Care Provi anders Carmelo Hendrickson Unavailable Unavailable Abigail Díaz Unavailable Reason for Visit * Reason Onset Date Comments Medication Management 01/06/2024 Encounter Details Date Type Department Care Team (Late st Contact Info) Description 01/06/2024 Telephone [facility] Adult Primary Care - [address] [address] Carrington Calderon MD 1 [facility] Level 1 [place] [phone] Medication Management Social History Tobacco Use Types Packs/Day Years Used Date Smoking Tobacco: Every Day Cigarettes 0.5 13.2 Started: 11/10/2010 Smokeless Tobacco: Never Comments:06/13/20 actively try ing to quit about 5-8 cigs/day Alcohol Use Standard Drinks/Week Comments Yes 0 (1 standard drink = 0.6 oz pur e alcohol) rarely [facility] Utilities Answer Date Recorded In [...] current use of insulin ([facility]) Brand: Freestyle, check glucose 4 times per day for insulin dose titration 100 Each 11 01/06/2024 blood glucose test stripsIndications:Type 2 diabetes mellitus with diabetic polyneuropathy, with long-term current use of insulin ([facility]) Brand: Freestyle Lite, check glucose 4 times per day for insulin dose titration 100 Each 01/06/2024 blood glucose meterIndications:Type 2 diabetes mellitus with diabetic polyneuropathy, with long-term current use of insulin ([facility]) Brand: Freestyle Lite 1 Each 01/06/2024 documented in this encounter Miscellaneous Notes * Telephone Encounter - Carrington Calderon MD - 01/06/2024 1234 EDT Madhuri Garsia ordered. Abigail- I see it's been hard to engage her. May be worth another try, particularly to help with getting a CGM, unless you think that's more in [facility] territory. Thanks. * Telephone Encounter - Geneva Pederson, MARCELO - 01/06/2024 1128 EDT Unable to reach patient. Routing to Dr. Calderon to review/advise on alternative in the meantime. GENEVA PEDERSON RN 01/06/2024 11:29 * Telephone Encounter - Berenice Mahan - 01/06/2024 1028 EDT Patient is calling to request an order for blood glucose monitor (finger stick not CGM). They can not afford the dexcom sensors at this time and patient needs another way to check her blood sugar. Please send script for meter, lancets, and test strips to [facility] pharmacy in [place]. Fermin said patient is currently in the hospital now because her blood sugars have been above 400. documented in this encounter Plan of Treatment Upcoming Encounters Date Type Department Care Team (Late st Contact Info) Description 02/21/2024 9:45 EDT Office Visit [facility] Adult Primary Care - [address] [phone] Carrington Calderon MD [address] [phone] 02/27/2024 8:30 EDT Telemedicine [facility] Sleep Program - [address] [phone] Dwight Colbert [address] [place] [address] 02/29/2024 10:30 EDT [facility] Radiology Nuclear Medicine and PET - [address] [address] 02/29/2024 14:30 EDT [facility] Radiology Nuclear Medicine and PET - [address] [address]80[address] 03/01/2024 8:00 EDT [facility]ointment [facility] Radiology Nuclear Medicine and PET - [address] 873721 03/01/2024 9:30 EDT [facility]ment [facility] Radiology Nuclear Medicine and PET [address] [address]271 documented as of this encounter Visit Diagnoses Diagnosis Type 2 diabetes mellitus with diabetic polyneuropathy, with long-term current use of insulin ([facility]) ([facility])- Primary documented in this encounter Care Teams Finish Sander Relationship Specialty Start Date End Date Carrington Calderon MD 1 [facility] 1 [place] [address] PCP - General Internal Medicine - Primary Care 12/09/20 Carmelo Hendrickson Coordinator 12/01/23 Abigail Díaz Furniture Painter 01/04/24 documented as of this encounter
--- OUTSIDE RECORDS SUMMARY | 2024-02-10 01:15 | XMS_ITS | Encounter Summary ---
Author Organization [facility] Address [address] [place] [address] Care Team Providers Care Child Attendant Name Role Phone Carrington Calderon MD Primary Care Provi anders Abigail Díaz Unavailable [phone] Reason for Visit * Reason Onset Date Comments Results 07/25/2023 XRAY right ankle Encounter Details Date Type Department Care Team (Late st Contact Info) Description 07/25/2023 Telephone [facility] Adult Primary Care - [address] [address] Carrington Calderon MD 1 [facility] Level [address] [place] [phone] Results (XRAY right ankle) Social History [...] Visit [facility] Primary Care - [address] 244191 Carrington Calderon MD [address] [phone] 02/27/2024 8:30 EDT Telemedicine [facility] Sleep Program - [address] [phone] Dwight Colbert [address] [place] [phone] 02/29/2024 10:30 EDT Appointment [facility] Radiology Nuclear Medicine and PET - Main [address] [address] 02/29/2024 14:30 EDT [facility]ment [facility] Radiology Nuclear Medicine and PET - [address] [address] 03/01/2024 8:00 EDT [facility]ointment [facility] Radiology Nuclear Medicine and PET [address] [address] 03/01/2024 9:30 EDT [facility] Nuclear Medicine and PET - [address] [address] documented as of this encounter Visit Diagnoses Not on filedocumented in this encounter Care Teams Child Attendant Relationship Specialty Start Date End Date Carrington Calderon MD 1 [facility] 1 [place] [address] PCP - General Internal Medicine - Primary Care 12/09/20 Abigail Díaz Sports Equipment Racker 04/21/23 01/03/24 documented as of this encounter
--- OUTSIDE RECORDS SUMMARY | 2024-02-10 01:15 | XMS_ITS | Encounter Summary ---
Author Organization [facility] Address [address] [place] [address] Care Team Providers Care Spa Therapist Name Role Phone Carrington Calderon MD Primary Care Provi anders Carmelo Hendrickson Unavailable Unavailable Abigail Díaz Unavailable [phone] Reason for Visit * Reason Comments Medications Refill Encounter Details Date Type Department Care Team (Late st Contact Info) Description 01/18/[address] [facility] Adult Primary Care - [address] [phone] Carrington Calderon MD [address] [phone] Medications Refill Social History Tobacco Use Types Packs/Day Years Used Date Smoking Tobacco: Every Day Cigarettes 0.5 13.2 Started: 11/10/2010 Smokeless Tobacco: Never Comments:06/13/20 actively try ing to quit about 5-8 cigs/day Alcohol Use Standard Drinks/Week Comments Yes 0 (1 standard drink = 0.6 oz pur e alcohol) rarely [facility] Utilities Answer Date Recorded In the past 12 months has [employer], gas, oil, or water company [...] * Telephone Encounter - Karen Trujillo - 01/18/2024 1407 EDT Medication(s) Requested: Duloxetine [...] [facility] - [address] [phone] Carrington Calderon MD [address] [phone] 02/27/2024 8:30 EDT Telemedicine [facility] Sleep Program - [address] [phone] Dwight Colbert [address] [place] [phone] 02/29/2024 10:30 EDT Appointment [facility] Radiology Nuclear Medicine and PET [address] [address]321 02/29/2024 14:30 EDT Appointment [facility] Radiology Nuclear Medicine and PET [address] 808051 03/01/2024 8:00 EDT Appointment [facility] Radiology Nuclear Medicine and PET [address] 228531 03/01/2024 9:30 EDT Appointment [facility] Radiology Nuclear Medicine and PET [address] [phone] documented as of this encounter Visit Diagnoses Diagnosis Anxiety and depression- Primary Dysthymic disorder documented in this encounter Discontinued Medications Medication Sig Discontinue Reason Start Date End Da te DULoxetine 40 mg capsule,delayed release(DR/EC)Indications :Anxiety and depression Take 40 mg by mouth daily. 12/17/2022 01/18/2024 documented as of this encounter Care Teams Spa Therapist Relationship Specialty Start Date End Date Carrington Calderon MD [address] [place] [phone] PCP - General Internal Medicine - Primary Care 12/09/20 Carmelo Hendrickson Coordinator 12/01/23 Abigail Díaz Plate Keeper 01/04/24 documented as of this encounter
--- OUTSIDE RECORDS SUMMARY | 2024-02-10 01:15 | XMS_ITS | Encounter Summary ---
Author Organization [facility] Address [address] [place] [address] Care Team Providers Care Field Artillery Crewmember Name Role Phone Carrington Calderon MD Primary Care Provi anders Abigail Díaz Unavailable Carmelo Hendrickson Unavailable Unavailable Abigail Díaz Unavailable [phone] Reason for Visit * Reason Onset Date Comments Medications Refill 12/20/2023 Encounter Details Date Type Department Care Team (Late st Contact Info) Description 12/20/2023 Refill [facility] Adult Primary Care - [address] [phone] Carrington Calderon MD 1 [facility] Level 1 [place] [phone] Medications Refill Social History Tobacco Use Types Packs/Day Years Used Date Smoking Tobacco: Every Day Cigarettes 0.5 13.2 Started: 11/10/2010 Smokeless Tobacco: Never Comments:06/13/20 actively try ing to quit about 5-8 cigs/day Alcohol Use Standard Drinks/Week Comments Yes 0 (1 standard drink = 0.6 oz pur e alcohol) rarely [facility] Utilities Answer Date Recorded In the past [...] Ordered: Tramadol/ 1.22.24 Lorazepam/ 06.27.23 Preferred Pharmacy: [facility] [address] [place] [address] Is patient out of medication? Yes Last Visit Date with Ordering Provider: 12/01/2023 Next Non-Acute Visit Date Scheduled with Care Team: 02/21/2024 Berenice Mahan 12/20/2023 8:26 documented in this encounter Plan of Treatment Upcoming Encounters Date Type Department Care Team (Late st Contact Info) Description 02/21/2024 9:45 EDT Office Visit [facility] Adult Primary Care - [address] [phone] Carrington Calderon MD [address] [phone] 02/27/2024 8:30 EDT Telemedicine [facility] Sleep Program - [address] [phone] Dwight Colbert [address] [place] [phone] 02/29/2024 10:30 EDT Appointment [facility] Radiology Nuclear Medicine and PET [address] [phone] 02/29/2024 14:30 EDT Appointment [facility] Radiology Nuclear Medicine and PET [address] [phone] 03/01/2024 8:00 EDT Appointment [facility] Radiology Nuclear Medicine and PET [address] [phone] 03/01/2024 9:30 EDT Appointment [facility] Radiology Nuclear Medicine and PET [address] [phone] documented as of this encounter Visit Diagnoses [...] as of this encounter Care Teams Field Artillery Crewmember Relationship Specialty Start Date End Date Carrington Calderon MD 1 [facility] 1 [place] [phone] PCP - General Internal Medicine - Primary Care 12/09/20 Abigail Díaz Icebox Worker 04/21/23 01/03/24 Carmelo Hendrickson Coordinator 12/01/23 Abigail Díaz Icebox Worker 01/04/24 documented as of this encounter
--- OUTSIDE RECORDS SUMMARY | 2024-02-10 01:15 | XMS_ITS | Encounter Summary ---
Author Organization [facility] Address [address] [place] [address] Care Team Providers Care Ambulatory Care Name Role Phone Carrington Calderon MD Primary Care Provi anders Carmelo Hendrickson Unavailable Unavailable Abigail Díaz Unavailable Reason for Visit * Reason Onset Date Comments Neck Pain 02/06/2024 Encounter Details Date Type Department Care Team (Late st Contact Info) Description 02/06/[address] [facility] Adult Primary Care - [place] [address] [place] [address] Cedric Yoon MD 2 [place] [address] Neck Pain Social History Tobacco Use Types Packs/Day Years Used Date Smoking Tobacco: Every Day Cigarettes 0.5 13.2 Started: 11/10/2010 Smokeless Tobacco: Never Comments:06/13/20 actively try ing to quit about 5-8 cigs/day Alcohol Use Standard Drinks/Week Comments Yes 0 (1 standard drink = 0.6 oz pur e alcohol) rarely [facility] Utilities Answer Date Recorded In the [...] any time in the past 12 m [facility], were you homeless or [...] Telephone Encounter - Jesi Lua RN - 02/07/2024 0831 EDT Left message for pt to call back to see if she went to a local ER (l[facility]) or how is she feeling and will offer her an appt. Asked her to call back to check in. * Telephone Encounter - Carrington Calderon MD - 02/07/2024 0806 EDT Looks to me like she didn't get in to be seen. Can someone call to check in on symptoms and offer an OV if appropriate? Thanks. * Telephone Encounter - Cedric Yoon MD [...] [facility] Adult Primary Care - [address] [address] Carrington Calderon MD [address] [phone] 02/27/2024 8:[address] [facility] Sleep Program - [address] 135891 Dwight Colbert [address] [place] [phone] 02/29/2024 10:30 EDT Appointment [facility] Radiology Nuclear Medicine and PET - [address] [id number] 02/29/2024 14:30 EDT Appointment [facility] Radiology Nuclear Medicine and PET [address] [id number] 03/01/2024 8:[address] [facility] Radiology Nuclear Medicine and PET - [address] [id number] 03/01/2024 9:30 EDT Appointment [facility] Radiology Nuclear Medicine and PET - [address] [address] documented as of this encounter Visit Diagnoses Not on filedocumented in this encounter Care Teams Ambulatory Care Relationship Specialty Start Date End Date Carrington Calderon MD 1 [facility] 1 [place] [phone] PCP - General Internal Medicine - Primary Care 12/09/20 Carmelo Hendrickson Coordinator 12/01/23 Abigail Díaz Plasterer Stucco 01/04/24 documented as of this encounter
--- OUTSIDE RECORDS SUMMARY | 2024-02-10 01:15 | XMS_ITS | Encounter Summary ---
Author Organization [facility] Address [address] [place] [address] Care Team Providers Care Wetland Scientist Name Role Phone Carrington Calderon MD Primary Care Provi anders JunJameyAbigail Williamson Unavailable Reason for Referral * Consult (Routine/Next Available) - Authorization Not Required Specialty Diagnoses / Procedures Referred By Kit goode Referred To Contact Sleep Medicine Diagnoses Primary insomnia Carrington Calderon MD [address] [phone] [facility] [address] [place] [address] Referral ID Status Reason Start Date Expiration Date Visits Requested Visits Authorized [id number] Authorization Not Required Specialty Services Required 11/11/2023 1 1 Question Answer Reason for referral Diffifulty initiating sleep Patient Type: Adult Comments Schedule via phone, no mychart * Referral (Routine/Next Available) - Specialty Report Received Specialty Diagnoses / Procedures Referred By Kit goode Referred To Contact Multidisciplinary Diagnoses Type 2 diabetes mellitus with diabetic polyneuropathy, with long-term current use of insulin ([facility]) Cyclic vomiting syndrome Carrington Calderon MD [address] [phone] [facility] Team [address] [facility], [address] [place] [address] Referral ID Status Reason Start Date Expiration Date Visits Requested Visits Authorized [id number] Specialty Report Received Specialty Services Required 11/11/2023 1 1 Question Answer Reason for Request: disability paperwork * Referral (Routine/Next Available) - Closed Specialty Diagnoses / Procedures Referred By Contac t Referred To Contact Neurology Diagnoses Migraine with aura and without status migrainosus, not intractable Cyclic vomiting syndrome Carrington Calderon MD [address] [phone] Kierra Almeida DO 1 [facility] 2 [place] [address] Referral ID Status Reason Start Date Expiration Date V isits Requested Visits Authorized [id number] Closed Specialty Services Required 11/11/2023 1 1 Question Answer Reason for Request: cyclic vomiting and migraine Context of referral: Established Problem Reason for referral: Unsure Is headache attributable to an underlying condition? No Is patient actively missing work or school due to headache? Yes Is patient or lactating? No Has patient had a previous OUTSIDE of [facility] neurology evaluation, neuroimaging (MRI or CT of brain or spine) or electrodiagnostic testing (EMG, NCS, EEG)? No Reason for Visit * Reason Comments Follow-up Foot Pain Encounter Details Date Type Department Care Team (Late st Contact Info) Description 11/11/2023 13:00 EDT Office Visit [facility] Adult Primary Care - [place] 1 [place], [place] [address] Carrington Calderon MD [address] [phone] Type 2 diabetes mellitus with diabetic polyneuropathy, [...] long-term current use of insulin ([facility]) 8 units with breakfast, 15 units with lunch/dinner 30 mL 11 11/11/2023 documented in this encounter Progress Notes * Carrington Calderon MD - 11/11/2023 1300 EDT Images from the original note were not included. Primary Care Office Visit Assessment & Plan 1. Type 2 diabetes mellitus with diabetic polyneuropathy, with long-term current use of insulin ([facility]) ([facility]) Reviewed CGM data in detail. GMI [...] CHOLESTEROL, TRIGLYCERIDES, HDL, LDL); Future - URINE [id number] RATIO (ACR); Future 2. Migraine with aura [...] 2 diabetes mellitus, limited to breakdown ofskin ([facility]) Continue care with her handbook writer. We did not examine the foot today, [...] that she has continued to see her handbook writer in [place] every couple of weeks. She has a persistent foot ulcer on the bottom of her left foot at around the level of the first metatarsal head. She expresses frustration around the fact that this has not healed. She has beentold by her handbook writer that it would be hard or impossible [...] [facility] Center Adult Primary Care - [address] [phone] Carrington Calderon MD [address] [phone] 02/27/2024 8:30 EDT Telemedicine [facility] Sleep Program - [address] 1694[address] Dwight Colbert [address] [place] [phone] 02/29/2024 10:30 EDT Appointment [facility] Radiology Nuclear Medicine and PET - [address] [id number] 02/29/2024 14:30 EDT Appointment [facility] Radiology Nuclear Medicine and PET - [address] [phone] 03/01/2024 8:00 EDT Appointment [facility] Radiology Nuclear Medicine and PET - [address] [phone] 03/01/2024 9:30 EDT Appointment [facility] Radiology Nuclear Medicine and PET - [address] [address] Scheduled Orders Name Type Priority Associated Diagnoses Orde r Schedule HEMOGLOBIN A1C Lab Routine Type 2 diabetes mellitus with diabetic polyneuropathy, with long-term current use of insulin (HCC-CMS) ([facility]) Expected: 02/09/2024 (Approximate), Expires: 05/09/2024 COMPREHENSIVE METABOLIC PANEL (CMP) Lab Routine Type 2 diabetes mellitus with diabetic polyneuropathy, with long-term current use of insulin (HCC-CMS) ([facility]) Expected: 02/09/2024 (Approximate), Expires: 05/09/2024 COMPLETE BLOOD COUNT AND DIFFERENTIAL Lab Routine Type 2 diabetes mellitus with diabetic polyneuropathy, with long-term current use of insulin ([facility]) ([facility]) Expected: 02/09/2024 (Approximate), Expires: 05/09/2024 LIPID PROFILE (INCLUDES CHOLESTEROL, TRIGLYCERIDES, HDL, LDL) Lab Routine Type 2 diabetes mellitus with diabetic polyneuropathy, with long-term current use of insulin ([facility]) ([facility]) Expected: 02/09/2024 (Approximate), Expires: 05/09/2024 URINE [id number] RATIO (ACR) Lab Routine Type 2 diabetes mellitus with diabetic polyneuropathy, with long-term current use of insulin ([facility]) ([facility]) Expected: 02/09/2024 (Approximate), Expires: 05/09/2024 THYROID-STIMULATING IMMUNOGLOBULIN (TSI), SERUM Lab Routine Subclinical hyperthyroidism Expected: 11/11/2023 (Approximate), Expires: 11/10/2024 Scheduled Referrals Name Type Priority Associated Diagnoses Order Schedule AMB CONS/FOLLOW UP HEADACHE Outpatient Referral Routine/Next Available Migraine with aura and without status migrainosus, not intractable Cyclic vomiting syndrome Expected: 12/11/2023 (Approximate), Expires: 11/10/2024 AMB CONS/FOLLOW UP [facility] Referral Routine/Next Available Type 2 diabetes mellitus with diabetic polyneuropathy, with long-term current use of insulin (HCC-CMS) ([facility]) Cyclic vomiting syndrome Expected: 11/18/2023 (Approximate), Expires: 11/10/2024 BEHAVIORAL SLEEP MEDICINE CONSULTATION Outpatient Referral Routine/Next Available Primary insomnia Expected: 12/11/2023 (Approximate), Expires: 11/10/2024 documented as of this encounter Results * HIV 1/2 ANTIGEN AND ANTIBODY, 4TH GENERATION (11/11/2023 13:53 EDT) Pathologist [facility] HIV 1 and 2 Antibody/p24 Antigen, 4th Generation Negative Negative 11/11/2023 17:04 EDT [facility] Comment:If acute HIV-1 infec tion is suspected in a high risk patient, submit plasma specimen for HIV-1 RNA quantitation test. Blood VENOUS BLOOD / Unknown Venipuncture / Unknown 11/11/2023 13:53 EDT 11/11/2023 13:55 EDT Narrative [facility] - 11/11/2023 17:04 EDT Fourth Generation assay performed on the [employer]aur XPT. Carrington Calderon MD IMMUNOLOGY AND SEROLOGY ORDERABLES Performing Organization Address City/[facility]/ZIP Co de Phone Number [facility] [address] [place] [address] * HEPATITIS C AB W REFLEX TO HCV RNA BY PCR (11/11/2023 13:53 EDT) Pathologist [facility] Hep C Antibody Negative Negative 11/11/2023 17:03 EDT [facility] Blood VENOUS BLOOD / Unknown Venipuncture / Unknown 11/11/2023 13:53 EDT 11/11/2023 13:55 EDT Carrington Calderon MD CHEMISTRY & BLOOD GAS ORDERABLES [facility] [address] [place] [address] * HEPATITIS B PROFILE (11/11/2023 13:53 EDT) Pathologist [facility] Hep B Surface Ag Negative Negative 11/11/19 17:04 EDT [facility] Hep B Surface Ab, Quantitative <3.1 See Note mIU/mL 11/11/2023 17:04 EDT [facility] Comment: Reference Range for Hep B Surface Ab, Quant: Positive: >= 10.0 mIU/mL Negative: ??< 10.0 mIU/mL Patient is presumed to not be immune to infection with Hepatitis B Virus. Hep B Surface Ab, Qualitative Negative See Note 11/11/2023 17:04 EDT [facility] Comment: Reference Range for Hep B Surface Ab, Qual: Unvaccinated: ??Negative Vaccinated: ??Positive Hepatitis B Core Ab, Total Negative Negative 11/11/2023 17:04 EDT [facility] Blood VENOUS BLOOD / Unknown Venipuncture / Unknown 11/11/2023 13:53 EDT 11/11/2023 13:55 EDT Carrington Calderon MD CHEMISTRY & BLOOD GAS ORDERABLES Performing Organization Address City/[facility]/ZIP Co de Phone Number [facility] [address] [place] [address] * (ABNORMAL) THYROID CASCADE (11/11/2023 13:53 EDT) TSH 0.37(L) 0.47 - 4.68 mIU/L 11/11/2023 15:38 EDT [facility] Blood VENOUS BLOOD / Unknown Venipuncture / Unknown 11/11/2023 13:53 EDT 11/11/2023 13:55 EDT Narrative [facility] - 11/11/2023 15:38 EDT NOTE: The results of this assay can be falsely lowered due to the consumption of Biotin. Carrington Calderon MD CHEMISTRY & BLOOD GAS ORDERABLES Performing Organization Address [facility]/ZIP Co de Phone Number [facility] [address] [place] [address] documented in this encounter Visit Diagnoses Diagnosis Type 2 diabetes mellitus with diabetic polyneuropathy, with long-term current use of insulin ([facility]) (HCC)- Primary Migraine with aura and without status migrainosus, not intractable Migraine with aura, without mention of intractable migraine without mention of status migrainosus Anxiety and depression Dysthymic disorder Cyclic vomiting syndrome Persistent vomiting Diabetic ulcer of left midfoot associated with type 2 diabetes mellitus, limited to breakdown of skin ([facility]) Primary insomnia Persistent disorder of initiating or [...] long-term current use of insulin ([facility]) 8 units with breakfast, 12 units with lunch/dinner 06/27/2023 11/11/2023 documented as of this encounter Care Teams Wetland Scientist Relationship Specialty Start Date End Date Carrington Calderon MD 1 [facility] 1 [place] [address] PCP - General Internal Medicine - Primary Care 12/09/20 Abigail Díaz Ror Engineer 04/21/23 01/03/24 documented as of this encounter
--- OUTSIDE RECORDS SUMMARY | 2024-02-10 01:15 | XMS_ITS | Encounter Summary ---
Author Organization [facility] Address [address] [place] [address] Care Team Providers Care Interline Clerk Name Role Phone Carrington Calderon MD Primary Care Provi anders BarahonaJameyClayAbigail Unavailable [phone] Reason for Referral * Radiology Services (Routine/Next Available) - Authorization Not Required Specialty Diagnoses / Procedures Referred By Contac t Referred To Contact Diagnoses Pain in right ankle and joints of right foot Procedures XR ANKLE RIGHT 3 OR MORE VIEWS Kylah Vázquez PA [address] [place] [phone] [facility] Referral ID Status Reason Start Date Expiration Date Visits Requested Visits Authorized [id number] Authorization Not Required 07/25/2023 1 1 Reason for Visit * Radiology Services (Routine/Next Available) - Authorization Not Required Specialty Diagnoses / Procedures Referred By Contac t Referred To Contact Diagnoses Pain in right ankle and joints of right foot Procedures XR ANKLE RIGHT 3 OR MORE VIEWS Kylah Vázquez PA [address] [place] [phone] [facility] Referral ID Status Reason Start Date Expiration Date Visits Requested Visits Authorized [id number] Authorization Not Required 07/25/2023 1 1 Encounter Details Date Type Department Care Team (Latest Contact Info) Description 07/25/2023 13:24 EST - 07/25/2023 23:59 EST [facility] Radiology Xray Outpatient - [address] [address] Pain in right ankle and joints of [...] of insulin ([facility]) Inject 1 Each into the skin every 10 days. 9 Each 4 03/16/2023 Blood-Glucose Transmitter (DEXCOM G6 TRANSMITTER) deviceIndications:Typ e 2 diabetes mellitus with diabetic polyneuropathy, with long-term current use of insulin ([facility]) Inject 1 Each into the skin every 3 months. 1 Each 4 07/07/2023 empagliflozin (JARDIANCE) 25 mg tabletIndications:Typ e 2 diabetes mellitus with diabetic polyneuropathy, with long-term current use of insulin ([facility]) Take 1 Tablet by mouth daily. 90 Tablet 06/27/2023 gabapentin (NEURONTIN) 300 mg capsuleIndications:Di abetic polyneuropathy associated with type 2 diabetes mellitus ([facility]) Take 1 Capsule by mouth every morning AND 4 Capsules at bedtime. 450 Capsule 4 06/27/2023 insulin glargine (LANTUS SOLOSTAR/SEMGLEE) 100 unit/mL (3 mL) injection penIndications:Type 2 diabetes mellitus with diabetic polyneuropathy, with long-term current use of insulin ([facility]) Inject 44 Units into the skin at bedtime. 36 mL 06/27/2023 lidocaine 5 % (LIDODERM) 5 % patchIndications:Counter Person gordo midline low back pain without sciatica [...] insulin ([facility]) Take 1 Tablet by mouth [...] insulin ([facility]) 8 units with breakfast, 12 [...] [facility] Adult Primary Care - [address] [phone] Carrington Calderon MD [address] [place] [phone] 02/27/2024 8:30 EDT Telemedicine [facility] Sleep Program - [address] [phone] Dwight Colbert [address] [place] [address] 02/29/2024 10:30 EDT Appointment [facility] Radiology Nuclear Medicine and PET - [address] [address] 02/29/2024 14:30 EDT Appointment [facility] Radiology Nuclear Medicine and PET [address] [address] 03/01/2024 8:00 EDT Appointment [facility] Radiology Nuclear Medicine and PET [address] [address] 03/01/2024 9:30 EDT Appointment [facility] Radiology Nuclear Medicine and PET [address] [address] documented as of this encounter Procedures Procedure [...] on the plantar surface of the calcaneus. [id number] Narrative 07/25/2023 16:12 EST EXAM/TECHNIQUE: XR ANKLE [...] on the plantar surface of the calcaneus. [id number] Kylah DAWSON IMG DIAGNOSTIC IMAGI NG ORDERABLES documented in this encounter Visit Diagnoses Diagnosis Pain in right ankle and joints of right foot documented in this encounter Care Teams Interline Clerk Relationship Specialty Start Date End Date Carrington Calderon MD 1 [facility] Level 1 [place] [phone] PCP - General Internal Medicine - Primary Care 12/09/20 Abigail Díaz Production Control Coordinating Clerk 04/21/23 01/03/24 documented as of this encounter
--- OUTSIDE RECORDS SUMMARY | 2024-02-10 01:15 | XMS_ITS | Encounter Summary ---
Author Organization [facility] Address [address] [place] [address] Care Team Providers Care Electronics Lead Name Role Phone Carrington Calderon MD Primary Care Provi anders Abigail Díaz Unavailable [phone] Carmelo Hendrickson Unavailable Unavailable Encounter Details Date Type Department Care Team (Late st Contact Info) Description 12/07/2023 Patient Outreach [facility] Adult Primary Care - [place] [address] [place], [place] [phone] Carmelo Hendrickson Social History Tobacco Use Types Packs/Day Years Used Date Smoking Tobacco: Every Day Cigarettes 0.5 13.2 Started: 11/10/2010 Smokeless Tobacco: Never Comments:06/13/20 actively try ing to quit about 5-8 cigs/day Alcohol Use Standard Drinks/Week Comments Yes 0 (1 standard drink = 0.6 oz pur e alcohol) rarely C Utilities Answer Date Recorded In the past 12 months has [employer], gas, oil, or water [employer] threatened to shut off services in your [...] in the past 12 m [facility], were you homeless or living [...] Carmelo Hendrickson - 12/07/2023 0957 EDT [facility] Steam Locomotive Firer/Fireman Follow-up Note Encounter type: Telephone Notes: [facility] [...] [facility] Primary Care - [address] [phone] Carrington Calderon MD 1 [facility] Level 1 [place] [phone] 02/27/2024 8:30 EDT Telemedicine [facility] Sleep Program - [address] [address] Dwight Colbert [address] [place] [phone] 02/29/2024 10:30 EDT Appointment [facility] Radiology Nuclear Medicine and PET [address] [address] 02/29/2024 14:30 EDT Appointment [facility] Radiology Nuclear Medicine and PET - [address] [address] 03/01/2024 8:00 EDT Appointment [facility] Radiology Nuclear Medicine and PET [address] [address] 03/01/2024 9:30 EDT Appointment [facility] Radiology Nuclear Medicine and PET [address] [address] documented as of this encounter Visit Diagnoses Not on filedocumented in this encounter Care Teams Electronics Lead Relationship Specialty Start Date End Date Carrington Calderon MD [address] [phone] PCP - General Internal Medicine - Primary Care 12/09/20 Abigail Díaz Agriculture Mechanic 04/21/23 01/03/24 Carmelo Hendrickson Coordinator 12/01/23 documented as of this encounter
--- OUTSIDE RECORDS SUMMARY | 2024-02-10 01:15 | XMS_ITS | Encounter Summary ---
Author Organization [facility] Address [address] [place] [address] Care Team Providers Care Mending Carrier Name Role Phone Carrington Calderon MD Primary Care Provi anders Abigail Díaz Unavailable [phone] Reason for Visit * Reason Comments Consult * Consult (Routine/Next Available) - Specialty Report Received Specialty Diagnoses / Procedures Referred By Kit goode Referred To Contact Obstetrics & Gynecology Diagnoses IUD contraception Carrington Calderon MD 1 [facility] 1 [place] [address] [place] [address] [place] [id number] Referral ID Status Reason Start Date Expiration Date Visits Requested Visits Authorized [id number] Specialty Report Received Specialty Services Required 3 1 1 Encounter Details Date Type Department Care Team (Late st Contact Info) Description 08/05/2023 13:00 EST Initial consult [facility] OBGYN Services - [address] [phone] Kamini Vega MD 111 [facility] 4 [place] [phone] Encounter for IUD insertion (Primary Dx); Gastroparesis [...] of this encounter Progress Notes * Kamini Veag MD - 08/05/2023 1300 EST Pap normal [...] pt has a referral for therapy. Diabetes ([facility]) A1c 10.3 on 11/28/2019 - poorly controlled Diabetes mellitus, type 2 ([facility]) pt check blood sugars at home- [...] withdrawn slightly and arms deployed as per pt escort specifications. Applicator removed Strings trimmed to 3 cm Tenaculum removed. No bleeding from tenaculum sites. Speculum removed. Patient tolerated procedure well. Kamini Vega MD 08/05/2023 13:02 documented in this encounter Plan of Treatment Upcoming Encounters Date Type Department Care Team (Late st Contact Info) Description 02/21/2024 9:45 EDT Office Visit [facility] Adult Primary Care - [address] [phone] Carrington Calderon MD [address] [phone] 02/27/2024 8:30 EDT Telemedicine [facility] Sleep Program - [address] 480001 Dwight Colbert [address] [place] [address] [phone] 02/29/2024 10:30 EDT Appointment [facility] Radiology Nuclear Medicine and PET [address] [phone] 02/29/2024 14:30 EDT Appointment [facility] Radiology Nuclear Medicine and PET [address] [phone] 03/01/2024 8:00 EDT Appointment [facility] Radiology Nuclear Medicine and PET [address] [id number] 03/01/2024 9:30 EDT Appointment [facility] Radiology Nuclear Medicine and PET [address] [phone] documented as of this encounter Visit Diagnoses [...] at 1345, Until Tue08/03/30 at 1344, Per [facility] P &T Committee, use is restricted to outpatient clinics and the OR. LARC approved for inpatient use includes Mirena, Nexplanon, and Paragard only for patients covered by [facility]., Routine IUD Insertion 08/05/2023 13:18 EST 1 Each documented in this encounter Orders Medications Ordered That Stan ht Not Have Been Administered Count Last Ordered Date First Ordered Date levonorgestreL (MIRENA) 21 m cg/24 hours (8 yrs) 52 mg IUD 1 Each 1 08/05/2023 documented in this encounter Care Teams Mending Carrier Relationship Specialty Start Date End Date Carrington Calderon MD 1 [facility] 1 [place] [address] PCP - General Internal Medicine - Primary Care 12/09/20 Abigail Díaz [employer] Executive Director 04/21/23 01/03/24 documented as of this encounter
--- OUTSIDE RECORDS SUMMARY | 2024-02-10 01:15 | XMS_ITS | Encounter Summary ---
Author Organization [facility] Address [address] [place] [address] Care Team Providers Care Chain Saw Mechanic Name Role Phone Carrington Calderon MD Primary Care Provi anders Abigail Díaz Unavailable Carmelo Hendrickson Unavailable Unavailable Encounter Details Date Type Department Care Team (Late st Contact Info) Description 12/02/2023 Patient Outreach [facility] Adult Primary Care - [place] [address] [place], [place] [phone] Carmelo Hendrickson Social History Tobacco Use Types Packs/Day Years Used Date Smoking Tobacco: Every Day Cigarettes 0.5 13.2 Started: 11/10/2010 Smokeless Tobacco: Never Comments:06/13/20 actively try ing to quit about 5-8 cigs/day Alcohol Use Standard Drinks/Week Comments Yes 0 (1 standard drink = 0.6 oz pur e alcohol) rarely [facility] Utilities Answer Date Recorded In the past 12 months has [employer], gas, oil, or water [employer] threatened to shut off services in your [...] time in the past 12 m [facility], were you homeless or living [...] [employer] [facility] Educational Program Assistant Initial Note Referred by: Abigail Díaz [facility] PCP: Carrington Calderon Encounter type: Telephone Reason for Referral: [employer] and other economic programs Notes: This Educational Program Assistant (RC) called Stella and talked to her about signing up for [place], as well as about health insurance. Stella reports a change in her family's employment situation and this RC walked her through how to sign up for health insurance through the [employer] website given a potential special enrollment period [...] [facility] - [address] [phone] Carrington Calderon MD [address] [phone] 02/27/2024 8:30 EDT Telemedicine [facility] Sleep Program [address] 189231 Dwight Colbert [address] [place] [address] [phone] 02/29/2024 10:30 EDT Appointment [facility] Radiology Nuclear Medicine and PET [address] [id number] 02/29/2024 14:30 EDT Appointment [facility] Radiology Nuclear Medicine and PET [address] [id number] 03/01/2024 8:00 EDT Appointment [facility] Radiology Nuclear Medicine and PET [address] [id number] 03/01/2024 9:30 EDT Appointment [facility] Radiology Nuclear Medicine and PET [address] [phone] documented as of this encounter Visit Diagnoses Not on filedocumented in this encounter Care Teams Chain Saw Mechanic Relationship Specialty Start Date End Date Carrington Calderon MD [address] [phone] PCP - General Internal Medicine - Primary Care 12/09/20 Abigail Díaz Driver'S License Examiner 04/21/23 01/03/24 Carmelo Hendrickson Coordinator 12/01/23 documented as of this encounter
--- OUTSIDE RECORDS SUMMARY | 2024-02-10 01:15 | XMS_ITS | Encounter Summary ---
Author Organization Health system Address [address] [place] [address] Care Team Providers Care Site Acquisition Specialist Name Role Phone Carrington Calderon MD Primary Care Provi anders Amrita Asencio Unavailable [phone] Carmelo Hendrickson Unavailable Unavailable Amrita Asencio Unavailable [phone] Reason for Referral * Referral (Routine/Next Available) - Authorization Not Required Specialty Diagnoses / Procedures Referred By Contac t Referred To Contact Multidisciplinary Diagnoses Encounter for screening involving social determinants of health (SDoH) Carrington Calderon MD 1 [facility] 1 [place] [address] [facility] Community Health Team [address] [facility], [address] [place] [address] Referral ID Status Reason Start Date Expiration Date Visits Requested Visits Authorized [id number] Authorization Not Required Specialty Services Required 4 1 1 Question Answer Reason for Request: apply for [employer] squares and other relevant economic programs Encounter Details Date Type Department Care Team (Latest Contact Info) Description 11/15/2023 Patient Outreach [facility] Adult Primary Care - [address] [address] Amrita Asencio Encounter for screening involving social determinants of health (SDoH) (Primary Dx) Social History Tobacco Use Types Packs/Day Years Used Date Smoking Tobacco: Former Cigarettes 0.5 13.2 S tarted: 11/10/2010 Smokeless Tobacco: Never Comments:06/13/20 actively try ing to quit about 5-8 cigs/day Alcohol Use Standard Drinks/Week Comments Yes 0 (1 standard drink = 0.6 oz pur e alcohol) rarely [facility] Utilities Answer Date Recorded In the past 12 months has th e [employer], gas, oil, or water [employer] threatened to shut off services in your [...] time in the past 12 m [facility], were you homeless or living in [...] Plan Referral Reason: Patient was referred to [facility] to assist with completing application for disability,difficulty with maintaining work Pertinent medical and behavioral health issues: ENT Chronic left ear pain Infectious Disease Skin infection Endocrine/Metabolic Pannus, abdominal Type 2 diabetes mellitus with diabetic polyneuropathy, with long-term current use of insulin ([facility]) ([facility]) Gastrointestinal/Abdominal Gastroparesis Psychiatric Anxiety and depression Musculoskeletal Chronic midline low back pain without sciatica Neuropathic diabetic ulcer of foot ([facility]) Family history of rheumatoid arthritis Neurological Migraine [...] Medicine - Primary Care) 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 Patient will review Sleep Hygiene resources sent by [facility] before next visit Barriers [...] Patient reviewed her current health needs and [facility] provided supportive counseling to pt Patient's access to their plan of care: Patient/family will access electronically through [employer] CM will follow-up in one month AMRITA ASENCIO 11/15/2023 15:19 documented in this encounter Plan of Treatment Upcoming Encounters Date Type Department Care Team (Late st Contact Info) Description 02/21/2024 9:45 EDT Office Visit [facility] Adult Primary Care - [address] [phone] Carrington Calderon MD 1 [facility] 1 [place] [phone] 02/27/2024 8:30 EDT Telemedicine [facility] Sleep Program - [address] [phone] Dwight Colbert [address] [place] [address] 02/29/2024 10:30 EDT [facility]ointment [facility] Radiology Nuclear Medicine and PET - [address] [address] 02/29/2024 14:30 EDT Appointment [facility] Radiology Nuclear Medicine and PET [address] [address] 03/01/2024 8:00 EDT Appointment [facility] Radiology Nuclear Medicine and PET [address] [address] 03/01/2024 9:30 EDT Appointment [facility] Radiology Nuclear Medicine and PET [address] [address] Scheduled Referrals Name Type Priority Associated Diagnoses Order Schedule AMB CONS/FOLLOW UP OUTPATIENT CARE MANAGEMENT - [facility] Outpatient Referral Routine Consult Encounter for screening involving social determinants of health (SDoH) Expected: 11/22/2023 (Approximate), Expires: 11/14/2024 documented as of this encounter Visit Diagnoses Diagnosis Encounter for screening involving social determinants of health (SDoH)- Primary documented in this encounter Care Teams Site Acquisition Specialist Relationship Specialty Start Date End Date Carrington Calderon MD [address] [phone] PCP - General Internal Medicine - Primary Care 12/09/20 Amrita Asencio Billet Cutter 04/21/23 01/03/24 Carmelo Hendrickson Coordinator 12/01/23 Amrita Asencio Billet Cutter 01/04/24 documented as of this encounter
--- OUTSIDE RECORDS SUMMARY | 2024-02-10 01:15 | XMS_ITS | Encounter Summary ---
Author Organization [facility] Address [address] [place] [address] Care Team Providers Care Carton Inspector Name Role Phone Carrington Calderon MD Primary Care Provi anders Abigail Díaz Unavailable Reason for Visit * Reason Comments Coordination Of Care Encounter Details Date Type Department Care Team (Late st Contact Info) Description 11/18/2023 Community Health Team [facility] Adult Primary Care - [place] 1 [place], [place] [address] Care Management, [facility] Social History Tobacco Use Types Packs/Day Years Used Date Smoking Tobacco: Every Day Cigarettes 0.5 13.2 Started: 11/10/2010 Smokeless Tobacco: Never Comments:06/13/20 actively try ing to quit about 5-8 cigs/day Alcohol Use Standard Drinks/Week Comments Yes 0 (1 standard drink = 0.6 oz pur e alcohol) rarely C Utilities Answer Date Recorded In the past 12 months has [employer], gas, oil, or water [employer] threatened to shut off services in your [...] in the past [address] [facility], were you homeless or living in a [...] * Nery Stokes - 11/18/2023 0945 EDT [facility] Flight Simulator Teacher Date: 11/18/23 Referred by: Abigial Williamson PCP: Carrington Calderon Encounter type: Phone Reason for Referral: [employer], Financial Notes: This Flight Simulator Teacher called Stella at scheduled date/time and left a voicemail offering to reschedule with direct contact information. Plan / Action Items: This Flight Simulator Teacher sent a [employer] message offering to reschedule. Pending reply from Stella. If no response by November 29, this Flight Simulator Teacher will place a call toLiz informing if [...] [facility] Adult Primary Care - [address] [phone] Carrington Calderon MD [address] [phone] 02/27/2024 8:30 EDT Telemedicine [facility] Sleep Program - [address] 385671 Sayra Dwight [address] [place] [address] [phone] 02/29/2024 10:30 EDT Appointment [facility] Radiology Nuclear Medicine and PET [address] [address] 02/29/2024 14:30 EDT Appointment [facility] Radiology Nuclear Medicine and PET [address] [address] 03/01/2024 8:00 EDT Appointment [facility] Radiology Nuclear Medicine and PET [address] [phone] 03/01/2024 9:30 EDT Appointment [facility] Radiology Nuclear Medicine and PET [address] [phone] documented as of this encounter Visit Diagnoses Not on filedocumented in this encounter Care Teams Carton Inspector Relationship Specialty Start Date End Date Carrington Calderon MD [address] [place] [phone] PCP - General Internal Medicine - Primary Care 12/09/20 Abigail Díaz Import Export Coordinator 04/21/23 01/03/24 documented as of this encounter
--- OUTSIDE RECORDS SUMMARY | 2024-02-10 01:15 | XMS_ITS | Encounter Summary ---
Author Organization [facility] Address [address] [place] [address] Care Team Providers Care Agricultural Sales Representative Name Role Phone Carrington Calderon MD Primary Care Provi anders Abigail Díaz Unavailable [phone] Carmelo Hendrickson Unavailable Unavailable Abigail Díaz Unavailable Reason for Referral * Radiology Services (Routine/Next Available) - Authorization Not Required Specialty Diagnoses / Procedures Referred By Contac t Referred To Contact Nuclear Medicine Diagnoses Subclinical hyperthyroidism Procedures NM THYROID UPTAKE AND SCAN PA IODINE I-123 SOD IODIDE EMILY Carrington Calderon MD [address] [place] [phone] [facility] Referral ID Status Reason Start Date Expiration Date Visits Requested Visits Authorized [id number] Authorization Not Required 12/06/2023 1 1 Reason for Visit * Reason Onset Date Comments Results 11/22/2023 Encounter Details Date Type Department Care Team (Late st Contact Info) Description 11/22/[address] [facility] Adult Primary Care - [address] [address] Carrington Calderon MD [address] [place] [phone] Results Social History Tobacco Use Types Packs/Day Years Used Date Smoking Tobacco: Every Day Cigarettes 0.5 13.2 Started: 11/10/2010 Smokeless Tobacco: Never Comments:06/13/20 actively try ing to quit about 5-8 cigs/day Alcohol Use Standard Drinks/Week Comments Yes 0 (1 standard drink = 0.6 oz pur e alcohol) rarely [facility] Utilities Answer Date Recorded In [...] in the past 12 m [facility], were you homeless or living in [...] EDT Office Visit [facility] Adult Primary Care - [address] 483171 Carrington Calderon MD [address] [place] [phone] 02/27/2024 8:30 EDT Telemedicine [facility] Sleep Program - [address] [phone] Dwight Colbert [address] [place] [phone] 02/29/2024 10:[address] [facility] Radiology Nuclear Medicine and PET [address] [phone] 02/29/2024 14:[address] [facility] Radiology Nuclear Medicine and PET [address] [phone] 03/01/2024 8:[address] [facility] Radiology Nuclear Medicine and PET [address] [phone] 03/01/2024 9:[address] [facility] Radiology Nuclear Medicine and PET [address] [phone] Scheduled Orders Name Type Priority Associated Diagnoses Orde r Schedule NM THYROID UPTAKE AND SCAN Imaging Routine Subclinical hyperthyroidism Expected: 12/13/2023 (Approximate), Expires: 06/07/2025 documented as of this encounter Visit Diagnoses Diagnosis Subclinical hyperthyroidism- Primary Thyrotoxicosis without mention of goiter or other cause, without mention of thyrotoxic crisis or storm documented in this encounter Care Teams Agricultural Sales Representative Relationship Specialty Start Date End Date Carrington Calderon MD 1 [facility] 1 [place] [address] PCP - General Internal Medicine - Primary Care 12/09/20 Abigail Díaz [employer] 04/21/23 01/03/24 Carmelo Hendrickson Coordinator 12/01/23 Abigail Díaz Operations Support [employer]ession[employer] 01/04/24 documented as of this encounter
--- OUTSIDE RECORDS SUMMARY | 2024-02-10 01:15 | XMS_ITS | Encounter Summary ---
Author Organization [facility] Address [address] [place] [address] Care Team Providers Care Sex Therapist Name Role Phone Carrington Calderon MD Primary Care Provi anders Carmelo Hendrickson Unavailable Unavailable Abigail Díaz Unavailable [phone] Encounter Details Date Type Department Care Team (Late st Contact Info) Description 01/06/2024 Lab Requisition [facility] Pathology & Laboratory Medicine - [facility] [address] [place] [address] Outr Resulting Lab, Provider Social History Tobacco Use Types Packs/Day Years Used Date Smoking Tobacco: Never Assessed [facility] Utilities Answer Date Recorded In the past 12 months has [employer], gas, oil, or water company threatened to [...] in the past 12 m [facility], were you homeless or living in [...] [facility] Adult Primary Care - [address] [phone] Carrington Calderon MD [address] [phone] 02/27/2024 8:30 EDT Telemedicine [facility] Sleep Program - [address] [phone] Dwight Colbert [address] [place] [address] [phone] 02/29/2024 10:30 EDT Appointment [facility] Radiology Nuclear Medicine and PET [address] [phone] 02/29/2024 14:30 EDT Appointment [facility] Radiology Nuclear Medicine and PET [address] [phone] 03/01/2024 8:00 EDT Appointment [facility] Radiology Nuclear Medicine and PET [facility] [address] [place], [place] [phone] 03/01/2024 9:30 EDT Appointment [facility] Radiology Nuclear Medicine and PET [facility] [address] [place] [address] documented as of this encounter Procedures Procedure Name Priority Date/Time Associated Diagnosis Comments OSMOLALITY Routine 01/06/2024 11:15 EDT documented in this encounter Results * (ABNORMAL) OSMOLALITY (01/06/2024 11:15 EDT) Osmolality, Serum 308(H) 275 - 295 mOsm/kg 01/06/2024 17:33 EDT [facility] Blood VENOUS BLOOD / Unknown 01/06/2024 11:15 EDT 01/06/2024 17:04 EDT Provider Outr Resulting Lab CHEMISTRY & BLOOD GAS ORDERABLES [facility] [address] [place], [place] [phone] documented in this encounter Visit Diagnoses Not on filedocumented in this encounter Care Teams Sex Therapist Relationship Specialty Start Date End Date Carrington Calderon MD 1 [facility] 1 [place] [phone] PCP - General Internal Medicine - Primary Care 12/09/20 Carmelo Hendrickson Coordinator 12/01/23 Abigail Díaz Pool Nurse 01/04/24 documented as of this encounter
--- OUTSIDE RECORDS SUMMARY | 2024-02-10 01:15 | XMS_ITS | Encounter Summary ---
Author Organization [facility] Address [address] [place] [address] Care Team Providers Care Global Implementation Manager Name Role Phone Carrington Calderon MD Primary Care Provi anders Abigail Díaz Unavailable [phone] Carmelo Hendrickson Unavailable Unavailable Reason for Visit * Reason Comments Pre-op Exam Encounter Details Date Type Department Care Team (Late st Contact Info) Description 12/01/2023 15:45 EDT Office Visit [facility] Adult Primary Care - [place] [address] [place] [address] Nimisha Clifton NP 1 [facility] Level [address] [place] [address] Neuropathic diabetic ulcer of foot [...] Recorded In the past 12 months has [employer], gas, oil, or water company threatened [...] any time in the past 12 m [facility], were you homeless or living [...] exam. Has been followed closely by her anthropology and archeology instructor for ongoing foot infection, the plan is [...] use of insulin ([facility]) ([facility]) ??? Gastroparesis ??? Neuropathic diabetic ulcer of foot ([facility]) ??? Tobacco use ??? Skin infection [...] therapy. ??? Diabetes ([facility]) A1c 10.3 on 11/28/2019 - poorly controlled ??? Diabetes mellitus, type 2 ([facility]) pt check blood sugars at home- [...] ulcer of foot ([facility]) 09/17/2021 ??? Obesity, unspecified ??? Osteomyelitis ([facility]) of left great toe-s/p amputation ??? [...] [facility] Adult Primary Care - [address] [id number] Carrington Calderon MD [address] [id number] 02/27/2024 8:30 EDT Telemedicine [facility] Sleep Program - [address] [id number] Dwight Colbert [address] [place] [id number] 02/29/2024 10:30 EDT Appointment [facility] Radiology Nuclear Medicine and PET - [address] [id number] 02/29/2024 14:30 EDT Appointment [facility] Radiology Nuclear Medicine and PET - [address] [id number] 03/01/2024 8:00 EDT Appointment [facility] Radiology Nuclear Medicine and PET - [address] [id number] 03/01/2024 9:30 EDT [facility] PET - [address] [id number] documented as of this encounter Visit Diagnoses Diagnosis Neuropathic diabetic ulcer of foot ([facility])- Primary Type II or unspecified type diabetes mellitus with other specified manifestations, not stated as uncontrolled Pre-op exam Preoperative examination, unspecified documented in this encounter Care Teams Global Implementation Manager Relationship Specialty Start Date End Date Carrington Calderon MD 1 [facility] [address] [place] [address] PCP - General Internal Medicine - Primary Care 12/09/20 Abigail Díaz Employment Counselor 04/21/23 01/03/24 Carmelo Hendrickson Coordinator 12/01/23 documented as of this encounter
--- OUTSIDE RECORDS SUMMARY | 2024-02-10 01:15 | XMS_ITS | Referral Summary ---
Author Organization [facility] Address [address] [place] [address] Care Team Providers Care Newspaper Distributor Supervisor Name Role Phone Carrington Calderon MD Primary Care Provi anders Carmelo Hendrickson Unavailable Unavailable Abigail Díaz Unavailable Encounters Date Type Department Care Team Description 02/06/2024 Telephone [facility] Adult Primary Care - [place] [address] [place] [address] Cedric Yoon MD Neck Pain 02/06/2024 Telephone [facility] Adult Primary Care - [place] [address] [place] [address] Cedric Yoon MD Torticollis 01/18/2024 Refill [facility] Primary Care [address] [phone] Carrington Calderon MD Medications Refill 01/06/2024 Lab Requisition [facility] Pathology & Laboratory Medicine [address] [address] Outr Resulting Lab, Provider 01/06/2024 Telephone [facility] Primary [address] [address] Carrington Calderon MD Medication Management 01/03/2024 Lab Requisition [facility] Pathology & Laboratory Medicine [address] [address] Madelin Ojeda MD Encounter for other general examination 12/20/[address] [address] Carrington Calderon MD Medications Refill 12/15/2023 Patient Outreach [address] [address] Abigail Díaz 12/14/2023 Patient Outreach [address] [address] Carmelo Hendrickson 12/09/2023 Orders Only [facility] Radiology - [address] [address] Teresita Fitzpatrick MD 12/07/2023 Patient Outreach [address] [address] Carmelo Hendrickson 12/02/2023 Patient Outreach [facility] Primary [address] [address] Emeka, Carmelo 12/02/2023 Patient Outreach [address] [address] Abigail Díaz 12/01/2023 Patient Outreach [facility] Primary [address] [address] Carmelo Hendrickson 12/01/2023 15:45 EDT Office Visit [address] [address] Nimisha Clifton NP Neuropathic diabetic ulcer of foot (HCC-CMS) (Primary Dx); Pre-op exam 11/22/2023 Telephone [facility] Primary [address] [address] Carrington Calderon MD Results 11/18/2023 Community Health Team [facility] Adult Primary Care [address] [address] Care Management, [facility] 11/16/2023 11:00 EDT Telemedicine [facility] Gastroenterology - Main [place] [address] [place] [address] Scott Arzate MD Cyclic vomiting syndrome (Primary Dx) 11/15/2023 Patient Outreach [facility] Adult Primary Care [address] [address] Abigail Díaz Encounter for screening involving social determinants of health (SDoH) (Primary Dx) 11/11/2023 13:30 EDT Phlebotomy Only [facility] Laboratory Services - [address] [address] Porcelain Enamel Repairer, [facility] Lab Abnormal thyroid blood test; Encounter for screening for other viral diseases 11/11/2023 13:00 EDT Office Visit [facility] Adult Primary Care [address] [address] Carrington Calderon MD Type 2 diabetes mellitus with diabetic polyneuropathy, with long-term current use of insulin ([facility]) ([facility]) (Primary Dx); Migraine with aura and without status migrainosus, not intractable; Anxiety and depression; Cyclic vomiting syndrome; Diabetic ulcer of left midfoot associated with type 2 diabetes mellitus, limited to breakdown of skin ([facility]); Primary insomnia; Abnormal thyroid blood test; [...] polyneuropathy, with long-term current use of insulin ([facility]) Inject 1 Each into [...] polyneuropathy, with long-term current use of insulin ([facility]) Inject 44 Units into the skin at bedtime. 36 mL 4 4 Active empagliflozin (JARDIANCE) 25 mg tabletIndications: Type 2 diabetes mellitus with diabetic polyneuropathy, with long-term current use of insulin ([facility]) Take 1 Tablet by mouth daily. 90 Tablet 4 4 Active SITagliptin phosphate (JANUVIA) 100 mg tabletIndications: Type 2 diabetes mellitus with diabetic polyneuropathy, with long-term current use of insulin ([facility]) Take 1 Tablet by mouth daily. 90 Tablet 4 4 Active metoclopramide HCl (REGLAN) 10 mg tablet Take 1 Tablet by mouth 3 times daily before meals. Starting 3 days before menses and stopping after end of period 270 Tablet 3 4 Active gabapentin (NEURONTIN) 300 mg capsuleIndications :Diabetic polyneuropathy associated with type 2 diabetes mellitus ([facility]) Take 1 Capsule by mouth every morning AND 4 Capsules at bedtime. 450 Capsule 4 4 Active SUMAtriptan (IMITREX) 20 mg/actuation nasal spray USE 1 SPRAY(S) INTO RIGHT NOSTRIL NEEDED FOR MIGRAINE HEADACHE 6 Each 1 4 Active Blood-Glucose Transmitter (Sellobuy G6 TRANSMITTER) deviceIndications: Type 2 diabetes mellitus with diabetic polyneuropathy, with long-term current use of insulin ([facility]) Inject 1 Each into the skin every 3 months. 1 Each 4 4 Active HUMALOG KWIKPEN INSULIN 100 unit/mL injectable penIndications:Typ e 2 diabetes mellitus with diabetic polyneuropathy, with long-term current use of insulin ([facility]) 8 units with breakfast, [...] polyneuropathy, with long-term current use of insulin ([facility]) Brand: Freestyle Lite 1 Each 4 Active blood glucose test stripsIndications: Type 2 diabetes mellitus with diabetic polyneuropathy, with long-term current use of insulin ([facility]) Brand: Freestyle Lite, check glucose 4 times per day for insulin dose titration 100 Each 4 Active lancetsIndications :Type 2 diabetes mellitus with diabetic polyneuropathy, with long-term current use of insulin ([facility]) Brand: Nanoradio, check glucose 4 times per day for [...] Confirmed patient has Traditional Medicaid now. TCN: [id number] Category: P2 Garfield Healy 06/10/2020 19:11 Problem Noted Date Diagnosed Date Tobacco use 12/21/2021 Skin infection 12/21/2021 Pannus, abdominal 12/21/2021 Overview: - as of 01/2022, does not meet criteria for surgical intervention (see 01/29/22 note) Neuropathic diabetic ulcer of foot ([facility]) Gastroparesis 08/10/2020 Overview: - Confirmed on [...] polyneuropathy, with long-term current use of insulin ([facility]) 06/05/2020 Overview: - Dx [...] approx 2012 - had SI, treated at [place]. Marijuana prn to help with stress/anxiety sx -Describes paradoxical effect of citalopram, reportedly resulting in the above admission at [place] Migraine with aura and witho ut status [...] Overview: Added automatically from request for surgery [id number] of unknown anatomic location 06/20/2020 06/27/2020 Overview: Clinical Group: [facility] Patient HPI: Cristy Luo is an 35 y.o. , patient with history of ectopic and positive HCG during post operative period for unrelated procedure. Reported cramping to [facility] nurse on 06/19. LMP: End of the first week of May Rh status: B- Rhogam: Given by [facility] 06/20/20 Desired : Unknown Ectopic risk factors: hx of ectopic pregnancies and five D&C's . 10/2018: Interstitial treated w/ MTX. HCGs Lab Results Component Value Date HCGPREG 49 (H) 06/25/2020 HCGPREG 111 (H) 06/23/2020 HCGPREG 152 (H) 06/21/2020 HCGPREG 108 (H) 06/19/2020 HCGPREG 2,954 (H) 10/11/2019 HCGPREG 707 (H) 09/02/2019 HCGPREG 316 (H) 08/31/2019 Plan: 06/20/2020: US today and given RhoGham by [facility]. Place in BB per MD Esteban [...] repeat HCG 06/25 & U/S 06/25 in [facility]. MARCELO Dale 06/25/20: U/S results - [...] Overview: Added automatically from request for surgery [id number] Type 2 diabetes mellitus wit h left diabetic foot ulcer ([facility]) 05/03/2020 03/27/2021 Osteomyelitis of great toe o f left foot ([facility]) 03/12/2020 06/11/2021 Diabetic foot ulcer associat ed with diabetes mellitus due to underlying condition ([facility]) 03/07/2020 03/27/2021 Diabetic foot infection ([facility]) 03/06/2020 06/11/2021 Diabetic foot ulcer ([facility]) 03/06/2020 06/11/2021 Cellulitis of great toe of left foot 11/26/2019 06/11/2021 Encounter for sterilization 11/20/2019 06/20/2020 Overview: Added automatically from request for surgery [id number] Missed 10/12/2019 10/15/2019 Overview: Clinical Group: ED [...] PCR results found No results found for: [id number] HgA1c [ ] 1T pending [ ] [...] diabetes. Last Assessment & Plan: - Reviewed [facility] group practice and clinic flow. - [...] Beta HCG = 1652.8 mIU/ml @ [facility] 11/10/2018: Quant Beta HCG, Preg 1,117 mIU/ml* (Ref range: <5 mIU/ml) 11/21/18: Quant Beta HCG 299.98 mIU/mL at [facility] (ref range <2.39) 12/03/18: Quant Beta HCG, 41.94 mIU/ml at [facility] 12/13/18: Quant Beta HCG, 13.63 mIU/ml at [facility] Plan: 10/24/18: per Dr. Coronado repeat [...] go to lab 11/08. States will go 11/09/18.[facility] 11/10/18: Plan per Dr. Almeida, repeat HCG in 1 week (11/17). Results & plan reviewed with Cristy. MARCELO Dale 11/21/18 Pt plans on going to [facility] today. [facility] 11/21/18. [facility] 299.98. Repeat in 1 week. Pt would like to go 11/27/18([facility]) as off from work [facility] 12/01/18: LVM for pt to repeat lab [...] with plan. MARCELO Dale 12/25/18: Per [facility] lab last HCG was 12/13, NOS for 12/20, LVM X3, letter sent, will remove from Beta Book.MARCELO Dale Spontaneous miscarriage 09/04/2015/08/2018 Overview: 02/18, 08/19. Followed by Dr. López/Affiliates in [facility] Type 2 diabetes mellitus ([facility]) 09/03/2015 06/11/2021 Overview: - [...] = 0.6 oz pur e alcohol) rarely [employer] Answer Date Recorded In the past 12 months has [place], oil, or water [employer] threatened to shut off services in your [...] [facility] [place] [address] [place], [place] [address] Carrington Calderon MD [facility] Level [address] [place] [id number] 02/27/2024 8:30 EDT Telemedicine [facility] Sleep Program - [address] [place] [address] [place], [place] [address] ColbertDwight garner [address] [place] [address] 02/29/2024 10:30 EDT [facility]ment [facility] Radiology Nuclear Medicine and PET - [address] [id number] 02/29/2024 14:30 EDT Appointment [facility] Radiology Nuclear Medicine and PET - [address] [id number] 03/01/2024 8:00 EDT Appointment [facility] Radiology Nuclear Medicine and PET - [address] [id number] 03/01/2024 9:30 EDT Appointment [facility] Radiology Nuclear Medicine and PET [address] [id number] Procedures Procedure Name Priority Date/Time Associated Diagnosis [...] polyneuropathy, with long-term current use of insulin ([facility]) LIPID PROFILE (INCLUDES CHOLESTEROL, TRIGLYCERIDES, HDL, LDL) Routine 11/28/2019 15:56 EDT Type 2 diabetes mellitus with other specified complication, unspecified whether lobsterman insulin use ([facility]) URINE [id number] NE RATIO (ACR) Routine 11/28/2019 15:56 EDT Type 2 diabetes mellitus with other specified complication, unspecified whether fpc insulin use ([facility]) from Last 3 Months or Most Recently Relevant to Health Maintenance Results * (ABNORMAL) OSMOLALITY (01/06/2024 11:15 EDT) Osmolality, Serum 308(H) 275 - 295 mOsm/kg 01/06/2024 17:33 EDT [facility] Blood VENOUS BLOOD / Unknown 01/06/2024 11:15 EDT 01/06/2024 17:04 EDT Provider Outr Resulting Lab CHEMISTRY & BLOOD GAS ORDERABLES Performing Organization Address [facility]/State/ZIP Co de Phone Number [facility] [address] [place] [phone] * SURGICAL PATHOLOGY (01/02/2024 8:23 EDT) Note to Patient The following pathology results have been interpreted by your pathologist and may be available to you before your health provider has had the opportunity to review them. Please allow time for your provider to receive these results and explore management options, if applicable. 01/09/2024 11:58 EDT [facility] Final Diagnosis A. FOOT, LEFT, TRANSMETATARSAL AMPUTATION: - Skin and soft tissue with marked acute inflammation and necrosis involving the resection margin. - Underlying bone with acute osteomyelitis. - Two of five bone resection margins with extensive acute osteomyelitis (see comment). 01/09/2024 11:58 [facility] Diagnosis Comment Correlate with microbiology studies. 01/09/2024 11:58 [facility] Attestation By the signature below, the attending physician certifies that they have 1) personally conducted a gross and/or microscopic examination of the described specimen(s), and/or personally interpreted the results of laboratory testing of the described specimen(s), and 2) personally rendered or confirmed the above diagnosis. 01/09/2024 11:58 [facility] at 1158 Clinical History Diabetic foot ulcer 01/09/2024 11:58 [facility] Gross Description A. Received [...] aggregate 8.0 x 3.5 x 2.5 cm. Erp Engineer sections are submitted as follows: BLOCK SHIELDS A1- plantar ulcer to closest skin and soft tissue margin of resection (inked blue), perpendicular A2- bone underlying plantar ulcer, following acid decalcification A3-A4- separately received transected bone margins, en face, following acid decalcification (differentially inked) EUNICE MAE(ASCP) 01/03/2024 10:29 01/09/2024 11:58 EDT [facility] Performing Lab [facility] 11:58 EDT [facility] Scanned Images 01/09/2024 11:58 EDT [facility] Tissue TRAUMATIC AMPUTATION OF UPPER LIMB / Unknown 01/02/2024 8:23 EDT 01/03/2024 8:00 EDT Madelin Ojeda MD PATHOLOGY ORDERABLES Performing Organization Address City/[facility]/ZIP Co de Phone Number [facility] [address] [place] [address] * (ABNORMAL) THYROID CASCADE (11/11/2023 13:53 EDT) [...] & BLOOD GAS ORDERABLES Performing Organization Address [facility]/ZIP Co de Phone Number [facility] [address] [place] [address] * HEPATITIS C AB W REFLEX TO HCV RNA BY PCR (11/11/2023 13:53 EDT) Hep C Antibody Negative Negative 11/11/2023 17:03 EDT [facility] Blood VENOUS BLOOD / Unknown Venipuncture / Unknown 11/11/2023 13:53 EDT 11/11/2023 13:55 EDT Carrington Calderon MD CHEMISTRY & BLOOD GAS ORDERABLES Performing Organization Address City/[facility]/ZIP Co de Phone Number [facility] [address] [place] [address] * HEPATITIS B PROFILE (11/11/2023 13:53 EDT) [...] & BLOOD GAS ORDERABLES Performing Organization Address [facility] Co de Phone Number [facility] [address] [place] [address] * HIV 1/2 ANTIGEN AND ANTIBODY, 4TH [...] IMMUNOLOGY AND SEROLOGY ORDERABLES Performing Organization Address City/[facility]/ZIP Co de Phone Number [facility] [address] [place], [place] [address] * T3, TOTAL (11/11/2023 13:53 EDT) T3, Total 137 97 - 169 ng/dL 11/11/2023 17:27 EDT [facility] Blood VENOUS BLOOD / Unknown Venipuncture / Unknown 11/11/2023 13:53 EDT 11/11/2023 13:55 EDT Carrington Calderon MD CHEMISTRY & BLOOD GAS ORDERABLES Performing Organization Address [facility] Co de Phone Number [facility] [address] [place] [address] * T4 FREE (11/11/2023 13:53 EDT) T4, Free 1.1 0.8 - 2.2 ng/dL 11/11/2023 16:08 EDT [facility] Blood VENOUS BLOOD / Unknown Venipuncture / Unknown 11/11/2023 13:53 EDT 11/11/2023 13:55 EDT Carrington Calderon MD CHEMISTRY & BLOOD GAS ORDERABLES Performing Organization Address [facility]/ZIP Co de Phone Number [facility] [address] [place], [place] [address] * PAP TEST (06/27/2023 16:00 EST) Specimens A. Cervix and/or Endocervix , ThinPrep Imaging System with Manual Evaluation 07/13/2023 16:25 EST [facility] Specimen Adequacy Satisfactory for Evaluation - transformation zone component absent 07/13/2023 16:25 EST [facility] General Categorization Negative for intraepithelial lesion or malignancy 07/13/2023 16:25 [facility] Attestation . 07/13/2023 16:25 [facility] at 1625 Clinical History screening 07/13/19 24 16:25 [facility] HPV The result for the Human Papillomavirus (HPV) Detection-High Risk Types is Negative. No E6 or E7 mRNA is detected from HPV types 16,18,31,33,35,39 ,45,51,52,56,58,5 9,66, and 68 by car conditioner mediated amplification.Lorena ting was performed on specimen [id number] and was resulted on 07/13/2023 1625 EST by JANET, LAB INSTRUMENT RESULTS IN 07/13/2023 16:25 [facility] Performing Lab [facility] 07/13/2023 16:25 [facility] Scanned Images 07/13/2023 16:25 [facility] Pap Test CERVIX UTERI STRUCTURE / Unknown 06/27/2023 16:00 EST 06/27/2023 16:00 EST Carrington Calderon MD PATHOLOGY O RDERABLES Performing Organization Address City/State/[facility] Co de Phone Number [facility] [address] [place] [address] * (ABNORMAL) HEMOGLOBIN A1C (03/14/2023 15:19 EDT) Hemoglobin A1c 8.3(H) <5.7 % 03/14/2023 22:02 EDT [facility] Comment: Glycemic Status References: Normal: ??<5.7% Pre-Diabetes: ??5.7% - 6.4% Diagnostic of Diabetes: ??> or = 6.5% (if confirmed) Est Avg Glucose 192 mg/dL 22:02 EDT [facility] Comment:The eAG represents t he A1c result expressed as average glucose in mg/dL. Blood VENOUS BLOOD / Unknown Venipuncture / Unknown 03/14/2023 15:19 EDT 03/14/2023 15:19 EDT Carrington Calderon MD CHEMISTRY & BLOOD GAS ORDERABLES Performing Organization Address [facility] de Phone Number [facility] [address] [place] [address] * (ABNORMAL) ALBUMIN, URINE (11/28/2019 15:56 EDT) Albumin, Urine 11.3 See Note mg/dL 2019 16:47 EDT [facility] Comment: NOTE: Reference range not established Creatinine, Urine 143.1 See Note mg/dL 11/28/2019 16:47 EDT [facility] Comment: NOTE: Reference range not established Lab Urine Albumin to Creatinine Ratio 79(H) <30 ug/mg Creatinine 11/28/2019 16:47 EDT [facility] Comment: Urine Albumin/Creatinine Ratio: Normal: <30 ug/mg Creatinine Moderately increased albuminuria: 30-300 ug/mg Creatinine Severley increased albuminuria: >300 ug/mg Creatinine Urine URINE SPECIMEN OBTAINED BY CLEAN CATCH PROCEDURE / Unknown Urine Collect / Unknown 11/28/2019 15:56 EDT 11/28/2019 15:56 EDT Tonja Alejandro PA-C CHEMISTRY & BLOOD GAS ORDERABLES Performing Organization Address [facility] Co de Phone Number [facility] [address] [place] [address] * LIPID PROFILE (INCLUDES CHOLESTEROL, TRIGLYCERIDES, HDL, LDL) (11/28/2019 15:56 EDT) Cholesterol 179 See Note mg/dL 11/28/2019 17:12 EDT [facility] Comment: Acceptable: ?<200 mg/dL Borderline High: 200-239 mg/dL High: ?> or = 240 mg/dL HDL 38 See Note mg/dL 11/28/2019 17:12 EDT [facility] Comment: Low: ? <40 mg/dL Normal: ??40-60 mg/dL High: ?>60 mg/dL LDL, Calculated 61 See Note mg/dL 11/28/2019 17:12 [facility] Comment: Optimal: ? <100 mg/dL Near Optimal: ?100-129 mg/dL Borderline High: 130-159 mg/dL High: ?160-189 mg/dL Very High: ? > or = 190 mg/dL Triglyceride 398 See Note mg/dL 11/28/2019 17:12 [facility] Comment: Normal: ? <150 mg/dL Borderline High: ??150 - 199 mg/dL High: ? 200 - 499 mg/dL Very High: ?> or = 500 mg/dL Chol/HDL Ratio 4.7 See Note 11/28/2019 17:12 [facility] Comment: No reference range has been established for CHOL/HDL ratio. Non HDL Cholesterol 141 See Note mg/dL 11/28/2019 17:12 [facility] Comment: Desirable: ?<130 mg/dL Borderline High: ??130-159 mg/dL High: ? 160-189 mg/dL Very High: ?> or = 190 mg/dL Blood VENOUS BLOOD / Unknown Venipuncture / Unknown 11/28/2019 15:56 EDT 11/28/2019 15:56 EDT Tonja Alejandro PA-C CHEMISTRY & BLOOD GAS ORDERABLES [facility] [address] [place] [address] from Last 3 Months or Most Recently Relevant to Health Maintenance Administered Medications Advance Directives For more information, please contact: [phone] Documents on File Type Date Recorded Patient Erp Engineer Expl anation Advance Directive 11/23/2022 10:36 Appt [...] participated in the discussion? Patient Care Teams Newspaper Distributor Supervisor Relationship Specialty Start Date End Date Carrington Calderon MD 1 [facility] [address] [place] [address] PCP - General Internal Medicine - Primary Care 12/09/20 Carmelo Hendrickson Coordinator 12/01/23 Abigail Díaz Hhas 01/04/24
--- OUTSIDE RECORDS SUMMARY | 2024-02-10 01:15 | XMS_ITS | Encounter Summary ---
Author Organization [facility] Address [address] [place] [address] Care Team Providers Care Scale Adjuster Name Role Phone Carrington Calderon MD Primary Care Provi anders Abigail Díaz Unavailable Carmelo Hendrickson Unavailable Unavailable Abigail Díaz Unavailable [phone] Encounter Details Date Type Department Care Team (Late st Contact Info) Description 12/15/2023 Patient Outreach [facility] Adult Primary Care - [address] [phone] Abigail Díaz Social History Tobacco Use Types Packs/Day Years Used Date Smoking Tobacco: Every Day Cigarettes 0.5 13.2 Started: 11/10/2010 Smokeless Tobacco: Never Comments:06/13/20 actively try ing to quit about 5-8 cigs/day Alcohol Use Standard Drinks/Week Comments Yes 0 (1 standard drink = 0.6 oz pur e alcohol) rarely [facility] Utilities Answer Date Recorded In the past 12 months has [employer], gas, oil, or water company threatened to [...] Progress Notes * Abigail Díaz - 12/15/2023 2575 EDT [facility] Food Service Cashier Care Coordination Care management phone consult as scheduled, pt did not answer phone. brownfield redevelopment site manager called and left voicemail requesting call back to reschedule. documented in this encounter Plan of Treatment Upcoming Encounters Date Type Department Care Team (Late st Contact Info) Description 02/21/2024 9:45 EDT Office Visit [facility] Adult Primary Care - [place] 1 [place], [place] [phone] Carrington Calderon MD 1 [facility] Level 1 [place] [phone] 02/27/2024 8:30 EDT Telemedicine [facility] Sleep Program - [address] [address] Dwight Colbert [address] [place] [address] 02/29/2024 10:30 EDT Appointment [facility] Radiology Nuclear Medicine and PET - [address] 269131 02/29/2024 14:30 EDT Appointment [facility] Radiology Nuclear Medicine and PET - [address] 884371 03/01/2024 8:00 EDT Appointment [facility] Radiology Nuclear Medicine and PET - [address] 606211 03/01/2024 9:30 EDT Appointment [facility] Radiology Nuclear Medicine and PET [address] [address] documented as of this encounter Visit Diagnoses Not on filedocumented in this encounter Care Teams Scale Adjuster Relationship Specialty Start Date End Date Carrington Calderon MD [address] [place] [phone] PCP - General Internal Medicine - Primary Care 12/09/20 Abigail Díaz Food Service Cashier 04/21/23 01/03/24 Carmelo Hendrickson Coordinator 12/01/23 Abigail Díaz Food Service Cashier 01/04/24 documented as of this encounter
--- OUTSIDE RECORDS SUMMARY | 2024-02-10 01:15 | XMS_ITS | Encounter Summary ---
Author Organization [facility] Address [address] [place] [address] Care Team Providers Care Dance Hall Host/Hostess Name Role Phone Carrington Calderon MD Primary Care Provi anders Abigail Díaz Unavailable Carmelo Hendrickson Unavailable Unavailable Abigail Díaz Unavailable [phone] Encounter Details Date Type Department Care Team (Late st Contact Info) Description 01/03/2024 Lab Requisition [facility] Pathology & Laboratory Medicine - [address] [address] Madelin Ojeda MD [address] [place] [address] Encounter for other general examination Social History Tobacco Use Types Packs/Day Years Used Date Smoking Tobacco: Every Day Cigarettes 0.5 13.2 Started: 11/10/2010 Smokeless Tobacco: Never Comments:06/13/20 actively try ing to quit about 5-8 cigs/day Alcohol Use Standard Drinks/Week Comments Yes 0 (1 standard drink = 0.6 oz pur e alcohol) rarely [facility] Utilities Answer Date Recorded In [...] any time in the past 12 m [facility], were you homeless or [...] [facility] Adult Primary Care - [address] [phone] Carrington Calderon MD 1 [facility] 1 [place] [phone] 02/27/2024 8:30 EDT Telemedicine [facility] Sleep Program - [address] [phone] Dwight Colbert [address] [place] [address] [phone] 02/29/2024 10:30 EDT Appointment [facility] Radiology Nuclear Medicine and PET [address] [address] 02/29/2024 14:30 EDT Appointment [facility] Radiology Nuclear Medicine and [address] [address] 03/01/2024 8:00 EDT Appointment [facility] Radiology Nuclear Medicine and [address] [address] 03/01/2024 9:30 EDT Appointment [facility] Radiology Nuclear Medicine and [address] [address] documented as of this encounter Procedures Procedure [...] management options, if applicable. 01/09/2024 11:58 EDT [facility] Final Diagnosis A. FOOT, LEFT, TRANSMETATARSAL AMPUTATION: - Skin and soft tissue with marked acute inflammation and necrosis involving the resection margin. - Underlying bone with acute osteomyelitis. - Two of five bone resection margins with extensive acute osteomyelitis (see comment). 01/09/2024 11:58 T [facility] Diagnosis Comment Correlate with microbiology studies. 01/09/2024 11:58 [facility] Attestation By the signature below, the attending physician certifies that they have 1) personally conducted a gross and/or microscopic examination of the described specimen(s), and/or personally interpreted the results of laboratory testing of the described specimen(s), and 2) personally rendered or confirmed the above diagnosis. 01/09/2024 11:58 T [facility] at 1158 Clinical History Diabetic foot ulcer 01/09/2024 11:58 EDT [facility] Gross Description A. [...] aggregate 8.0 x 3.5 x 2.5 cm. [place]angel[place] Management Specialist sections are submitted as follows: BLOCK SHIELDS A1- plantar ulcer to closest skin and soft tissue margin of resection (inked blue), perpendicular A2- bone underlying plantar ulcer, following acid decalcification A3-A4- separately received transected bone margins, en face, following acid decalcification (differentially inked) EUNICE MAE(ASCP) 01/03/2024 10:29 01/09/2024 11:58 EDT [facility] Performing Lab [facility] 11:58 T [facility] Scanned Images 01/09/2024 11:58 EDT [facility] Tissue TRAUMATIC AMPUTATION OF UPPER LIMB / Unknown 01/02/2024 8:23 EDT 01/03/2024 8:00 EDT Madelin Ojeda MD PATHOLOGY ORDERABLES [facility] [address] [place], [place] [phone] documented in this encounter Visit Diagnoses Diagnosis Encounter for other general examination documented in this encounter Care Teams Dance Hall Host/Hostess Relationship Specialty Start Date End Date Carrington Calderon MD 1 [facility] 1 [place] [address] PCP - General Internal Medicine - Primary Care 12/09/20 Abigial Díaz Front Desk Assistant 04/21/23 01/03/24 Carmelo Hendrickson Coordinator 12/01/23 Abigail Díaz Front Desk Assistant 01/04/24 documented as of this encounter
--- OUTSIDE RECORDS SUMMARY | 2024-02-10 01:15 | XMS_ITS | Encounter Summary ---
Author Organization [facility] Address [address] [place] [address] Care Team Providers Care Field Applications Specialist Name Role Phone Carrington Calderon MD Primary Care Provi anders Abigail Díaz Unavailable [phone] Carmelo Hendrickson Unavailable Unavailable Encounter Details Date Type Department Care Team (Late st Contact Info) Description 12/01/2023 Patient Outreach [facility] Adult Primary Care - [place] 1 [place], [place] [phone] Carmelo Hendrickson Social History Tobacco Use Types Packs/Day Years Used Date Smoking Tobacco: Every Day Cigarettes 0.5 13.2 Started: 11/10/2010 Smokeless Tobacco: Never Comments:06/13/20 actively try ing to quit about 5-8 cigs/day Alcohol Use Standard Drinks/Week Comments Yes 0 (1 standard drink = 0.6 oz pur e alcohol) rarely [facility] Utilities Answer Date Recorded In the past 12 months has [employer], gas, oil, or water [employer] threatened to shut off services in your [...] * Carmelo Hendrickson - 12/01/2023 1214 EDT [facility] Cost Control Analyst Initial Note Referred by: Abigail Díaz [facility] PCP: Carrington Calderon Encounter type: Telephone Reason for Referral: Help with Med[employer] and other economic programs Notes: This human resources benefits manager called Stella who was driving, made plan to call back tomorrow. Plan / Action Items: RC will follow up on 12/02/23 after 11am. Carmelo Hendrickson 12/01/23 12:15 documented in this encounter Plan of Treatment Upcoming Encounters Date Type Department Care Team (Late st Contact Info) Description 02/21/2024 9:45 EDT Office Visit [facility] [place] [address] Carrington Calderon MD 1 [facility] 1 [place] [phone] 02/27/2024 8:30 EDT Telemedicine [facility] Sleep Program - [address] [phone] Dwight Colbert [address] [place] [address] 02/29/2024 10:30 EDT Appointment [facility] Radiology Nuclear Medicine and PET - [address] 252491 02/29/2024 14:30 EDT Appointment [facility] Radiology Nuclear Medicine and PET [address] 282961 03/01/2024 8:00 EDT Appointment [facility] Radiology Nuclear Medicine and PET [address] [address] 03/01/2024 9:30 EDT Appointment [facility] Radiology Nuclear Medicine and PET [address] [address] documented as of this encounter Visit Diagnoses Not on filedocumented in this encounter Care Teams Field Applications Specialist Relationship Specialty Start Date End Date Carrington Calderon MD [address] [place] [address] 1 [place] [phone] PCP - General Internal Medicine - Primary Care 12/09/20 Abigail Díaz Furnace Filler 04/21/23 01/03/24 Carmelo Hendrickson Coordinator 12/01/23 documented as of this encounter
--- OUTSIDE RECORDS SUMMARY | 2024-02-10 01:15 | XMS_ITS | Encounter Summary ---
Author Organization [facility] Address [address] [place] [address] Care Team Providers Care Dye Weigher Name Role Phone Carrington Calderon MD Primary Care Provi anders Carmelo Hendrickson Unavailable Unavailable Abigail Díaz Unavailable [phone] Reason for Visit * Reason Onset Date Comments Torticollis 02/06/2024 Encounter Details Date Type Department Care Team (Late st Contact Info) Description 02/06/2024 Telephone [facility] Adult Primary Care - [place] [address] [place] [address] Cedric Yoon MD 2 [place] [address] Torticollis Social History Tobacco Use [...] [facility] - [address] [phone] Carrington Calderon MD [address] [phone] 02/27/2024 8:30 EDT Telemedicine [facility] Sleep Program - [address] [phone] Colbert Dwight [address] [place] [phone] 02/29/2024 10:30 EDT Appointment [facility] Radiology Nuclear Medicine and PET [address] 318261 02/29/2024 14:30 EDT Appointment [facility] Radiology Nuclear Medicine and PET [address] [address] 03/01/2024 8:00 EDT Appointment [facility] Radiology Nuclear Medicine and PET [address] [phone] 03/01/2024 9:30 EDT Appointment [facility] Radiology Nuclear Medicine and PET [address] [phone] documented as of this encounter Visit Diagnoses Not on filedocumented in this encounter Care Teams Dye Weigher Relationship Specialty Start Date End Date Carrington Calderon MD [address] [place] [phone] PCP - General Internal Medicine - Primary Care 12/09/20 Carmelo Hendrickson Coordinator 12/01/23 Abigail Díaz Fire Alarm Repairer 01/04/24 documented as of this encounter
--- OUTSIDE RECORDS SUMMARY | 2024-02-10 01:15 | XMS_ITS | Encounter Summary ---
Author Organization [facility] Address [address] [place] [address] Care Team Providers Care Bushel Worker Name Role Phone Carrington Calderon MD Primary Care Provi anders Abigail Díaz Unavailable [phone] Carmelo Hendrickson Unavailable Unavailable Encounter Details Date Type Department Care Team (Late st Contact Info) Description 12/14/2023 Patient Outreach [facility] Adult Primary Care - [place] 1 [place], [place] [phone] Carmelo Hendrickson Social History Tobacco Use Types Packs/Day Years Used Date Smoking Tobacco: Every Day Cigarettes 0.5 13.2 Started: 11/10/2010 Smokeless Tobacco: Never Comments:06/13/20 actively try ing to quit about 5-8 cigs/day Alcohol Use Standard Drinks/Week Comments Yes 0 (1 standard drink = 0.6 oz pur e alcohol) rarely [facility] Utilities Answer Date Recorded In the past 12 months has [employer], gas, oil, or water [employer] threatened to shut off services in your [...] any time in the past 12 m [facility], were you homeless or [...] Carmelo Hendrickson - 12/14/2023 1234 EDT [facility] Metal Drill Operator Follow-up Note Encounter type: Telephone Notes: RC [...] [facility] Adult Primary Care [address] [address] Carrington Calderon MD 1 [facility] Level 1 [place] [phone] 02/27/2024 8:30 EDT Telemedicine [facility] Sleep Program - [address] [address] Sayra Dwight [address] [place] [address] 02/29/2024 10:30 EDT Appointment [facility] Radiology Nuclear Medicine and PET - [address] [address] 02/29/2024 14:30 EDT Appointment [facility] Radiology Nuclear Medicine and PET - [address] [address] 03/01/2024 8:00 EDT Appointment [facility] Radiology Nuclear Medicine and PET - [address] [address] 03/01/2024 9:30 EDT Appointment [facility] Radiology Nuclear [place] [address] documented as of this encounter Visit Diagnoses Not on filedocumented in this encounter Care Teams Bushel Worker Relationship Specialty Start Date End Date Carrington Calderon MD [address] [place] [phone] PCP - General Internal Medicine - Primary Care 12/09/20 Abigail Díaz Oyster Harvester 04/21/23 01/03/24 Carmelo Hendrickson Coordinator 12/01/23 documented as of this encounter
--- OUTSIDE RECORDS SUMMARY | 2024-02-10 01:16 | XMS_ITS | Encounter Summary ---
Author Organization [facility] Address [address] [place] [address] Care Team Providers Care Engineering Technologist Name Role Phone Carrington Calderon MD Primary Care Provi anders Reason for Visit * Reason Onset Date Comments Prior Auth, Medication 04/03/2023 Encounter Details Date Type Department Care Team (Late st Contact Info) Description 04/03/2023 Telephone [facility] Adult Primary Care [address] [phone] Carrington Calderon MD 1 [facility] Level 1 [place] [address] Prior Auth, Medication Social History [...] polyneuropathy, with long-term current use of insulin ([facility]) Inject 12 Units into the skin [...] Visit [facility] Adult Primary Care - [address] [phone] Carrington Calderon MD [address] [phone] 02/27/2024 8:30 EDT Telemedicine [facility] Sleep Program - [address] [address] Dwight Colbert [address] [place] [address] 02/29/2024 10:30 ED[facility] Nuclear Medicine and PET - [address] [address] 02/29/2024 14:30 EDT [facility] Nuclear Medicine and PET - [address] 514391 03/01/2024 8:00 EDT [facility] Nuclear Medicine and PET - [address] 513061 03/01/2024 9:30 EDT Appointment [facility] Radiology Nuclear Medicine and PET [address] [address] documented as of this encounter Visit Diagnoses Diagnosis Type 2 diabetes mellitus with diabetic polyneuropathy, with long-term current use of insulin ([facility])- Primary documented in this encounter Discontinued Medications Medication Sig Discontinue Reason Start Date End Da te NOVOLOG FLEXPEN U-100 INSULIN 100 unit/mL (3 mL) injectable penIndications:Type 2 diabetes mellitus with diabetic polyneuropathy, with long-term current use of insulin ([facility]) INJECT 12 UNITS THREE TIMES DAILY WITH MEALS Insurance does not cover 04/01/2023 04/04/2023 insulin lispro (HUMALOG KWIKPEN INSULIN) 100 unit/mL injectable penIndications:Type 2 diabetes mellitus with diabetic polyneuropathy, with long-term current use of insulin ([facility]) Inject 8-14 Units into the skin 3 times daily with meals. Reorder 11/18/2022 04/04/2023 documented as of this encounter Care Teams Engineering Technologist Relationship Specialty Start Date End Date Carrington Calderon MD 1 [facility] 1 [place] [address] PCP - General Internal Medicine - Primary Care 12/09/20 documented as of this encounter
--- OUTSIDE RECORDS SUMMARY | 2024-02-10 01:16 | XMS_ITS | Encounter Summary ---
Author Organization [facility] Address [address] [place] [address] Care Team Providers Care Property Utilization Manager Name Role Phone Carrington Calderon MD Primary Care Provi anders Abigail Díaz Unavailable Carmelo Hendrickson Unavailable Unavailable Abigail Díaz Unavailable Reason for Visit * Reason Comments Medications Refill Encounter Details Date Type Department Care Team (Late st Contact Info) Description 03/31/[address] [facility] Adult Primary Care - [address] [phone] Vicki Mosqueda MD [address] [place] [phone] Medications Refill Social History Tobacco Use Types [...] Sig: INJECT 40 UNITS SUBCUTANEOUSLY AT BEDTIME [facility] [address] [place] [address] Confirmed Pharmacy? Yes Patient out of medication? [...] Provider Dept 06/27/23 Appointment Carrington Calderon MD [facility] Adult Prim Care Showing future appointments within next 150 days with a meds authorizing provider and meeting all other requirements Future appointment: Already Scheduled JOSS WASHINGTON RN 04/01/2023 10:43 documented in this encounter Plan of Treatment Upcoming Encounters Date Type Department Care Team (Late st Contact Info) Description 02/21/2024 9:[address] [facility] Adult Primary Care - [address] [address]11661 Carrington Calderon MD [address] [phone] 02/27/2024 8:[address] [facility] Sleep Program [address] [phone] Dwight Colbert [address] [place] [phone] 02/29/2024 10:30 EDT Appointment [facility] Radiology Nuclear Medicine and PET [address] [phone] 02/29/2024 14:30 EDT Appointment [facility] Radiology Nuclear Medicine and PET [address] [phone] 03/01/2024 8:00 EDT Appointment [facility] Radiology Nuclear Medicine and PET [address] 643431 03/01/2024 9:30 EDT Appointment [facility] Radiology Nuclear Medicine and PET [address] [phone] documented as of this encounter Visit Diagnoses Not on filedocumented in this encounter Care Teams Property Utilization Manager Relationship Specialty Start Date End Date Carrington Calderon MD [address] [place] [phone] PCP - General Internal Medicine - Primary Care 12/09/20 Abigail Díaz Broth Mixer 04/21/23 01/03/24 Carmelo Hendrickson Coordinator 12/01/23 Abigail Díaz Broth Mixer 01/04/24 documented as of this encounter
--- OUTSIDE RECORDS SUMMARY | 2024-02-10 01:16 | XMS_ITS | Encounter Summary ---
Author Organization [facility] Address [address] [place] [address] Care Team Providers Care Tire Changer Aircraft Name Role Phone Carrington Calderon MD Primary Care Provi anders Abigail Díaz Unavailable [phone] Carmelo Hendrickson Unavailable Unavailable Abigail Díaz Unavailable Encounter Details Date Type Department Care Team (Late st Contact Info) Description 03/18/2023 Orders Only [facility] Adult Primary Care - [address] [phone] Ratna Latham Abnormal TSH Social History Tobacco [...] [facility] - [address] 725071 Carrington Calderon MD [address] [phone] 02/27/2024 8:30 EDT Telemedicine [facility] Sleep Program - [address] [phone] Dwight Colbert [address] [place] [address] [phone] 02/29/2024 10:30 EDT Appointment [facility] Radiology Nuclear Medicine and [address] [phone] 02/29/2024 14:30 EDT Appointment [facility] Radiology Nuclear Medicine and [address] [phone] 03/01/2024 8:00 EDT Appointment [facility] Radiology Nuclear Medicine and PET [address] [phone] 03/01/2024 9:30 EDT Appointment [facility] Radiology Nuclear Medicine and [address] [phone] documented as of this encounter Procedures Procedure Name Priority Date/Time Associated Diagnosis Comments THYROID-STIMULATING IMMUNOGLOBULIN (TSI), SERUM Routine 03/14/2023 15:19 EDT Abnormal TSH documented in this encounter Results * THYROID-STIMULATING IMMUNOGLOBULIN (TSI), SERUM (03/14/2023 15:19 EDT) Thyroid-Stimulati ng Immunoglobin, S <1.0 <=1.3 TSI index 03/25/2023 15:55 EDT [facility] Comment: Test Performed by: [facility] [address] [place] [address] Negative Cleaner: Wiley Fry M.D. Ph.D.; CLIA# [id number] Blood VENOUS BLOOD / Unknown Venipuncture / Unknown 03/14/2023 15:19 EDT 03/18/2023 16:07 EDT Carrington Calderon MD CHEMISTRY & BLOOD GAS ORDERABLES [facility] [address] [place] [address] documented in this encounter Visit Diagnoses Diagnosis Abnormal TSH Other abnormal clinical finding documented in this encounter Care Teams Tire Changer Aircraft Relationship Specialty Start Date End Date Carrington Calderon MD 1 [facility] Level 1 [place] [phone] PCP - General Internal Medicine - Primary Care 12/09/20 Abigail Díaz Retoucher 04/21/23 01/03/24 Carmelo Hendrickson Coordinator 12/01/23 Abigail Díaz Retoucher 01/04/24 documented as of this encounter
--- OUTSIDE RECORDS SUMMARY | 2024-02-10 01:16 | XMS_ITS | Encounter Summary ---
Author Organization [facility] Address [address] [place] [address] Care Team Providers Care Bridge Crane Operator Name Role Phone Carly Calderon MD Primary Care Provi anders Abigail Díaz Unavailable [phone] Reason for Referral * Consult (Routine/Next Available) - Closed Specialty Diagnoses / Procedures Referred By Kit goode Referred To Contact Sleep Medicine Diagnoses Primary insomnia Carly Calderon MD [address] [address] [facility] 1 [place] [address] Referral ID Status Reason Start Date Expiration Date V isits Requested Visits Authorized [id number] Closed Specialty Services Required 06/27/2023 1 1 Question Answer Reason for referral Diffifulty initiating sleep, Difficulty maintaining sleep Patient Type: Adult * Consult (Routine/Next Available) - Specialty Report Received Specialty Diagnoses / Procedures Referred By Kit goode Referred To Contact Hematology Diagnoses Night sweats Lymphocytosis Carly Calderon MD [address] [address] [facility] Ep2 Hem/Onc [address] [place] [address] Referral ID Status Reason Start Date Expiration Date Visits Requested Visits Authorized [id number] Specialty Report Received Specialty Services Required 06/27/2023 1 1 Question Answer Reason for Request: night sweats Reason for Visit * Reason Comments Annual Exam Gynecologic Exam Encounter Details Date Type Department Care Team (Late st Contact Info) Description 06/27/2023 14:45 EST Office Visit [facility] Adult Primary Care [facility] 1 [place], [place] [phone] Carly Calderon MD 1 [facility] Level 1 [place] [address] Cyclic vomiting syndrome (Primary Dx); Anxiety; Chronic midline low back pain without sciatica; Type 2 diabetes mellitus with diabetic polyneuropathy, with long-term current use of insulin (HCC-CMS); Primary insomnia; Diabetic polyneuropathy associated with type 2 diabetes mellitus ([facility]); Night sweats; Lymphocytosis; Cervical cancer screening; [...] polyneuropathy associated with type 2 diabetes mellitus ([facility]) Take 1 Capsule by mouth [...] with long-term current use of insulin ([facility]) Take 1 Tablet by mouth daily. 90 Tablet 06/27/2023 empagliflozin (JARDIANCE) 25 mg tabletIndications:Type 2 diabetes mellitus with diabetic polyneuropathy, with long-term current use of insulin ([facility]) Take 1 Tablet by mouth daily. 90 Tablet 06/27/2023 insulin glargine (LANTUS SOLOSTAR/SEMGLEE) 100 unit/mL (3 mL) injection penIndications:Type 2 diabetes mellitus with diabetic polyneuropathy, with long-term current use of insulin ([facility]) Inject 44 Units into the skin at bedtime. 36 mL 06/27/2023 ondansetron (ZOFRAN-ODT) 4 mg disintegrating tabletIndications:Cyclic vomiting syndrome Take 1 Tablet by mouth every 8 hours as needed for Nausea. 30 Tablet 11 06/27/2023 SUMAtriptan (IMITREX) 20 mg/actuation nasal spray Instill 1 [place] into right nostril as needed for Migraine. 6 Each 06/27/2023 06/29/2023 HUMALOG KWIKPEN INSULIN 100 unit/mL injectable penIndications:Type 2 diabetes mellitus with diabetic polyneuropathy, with long-term current use of insulin ([facility]) 8 units with breakfast, 12 [...] Notes * Carly Calderon MD - 06/27/2023 2046 EST Images from the original note were [...] with long-term current use of insulin ([facility]): CGM data reviewed in detail today. GMI [...] polyneuropathy associated with type 2 diabetes mellitus ([facility]): We discussed considering an increase in her [...] Luis Wilson present during the exam as parliamentary librarian and cardiology physician assistant. - PAP TEST Candidal intertrigo: Rash [...] tried this. She continues to take Reglan chmzvj-lrr-dywua and both during and her episodes of [...] [facility] Adult Primary Care - [address] [phone] Carly Calderon MD [address] [phone] 02/27/2024 8:30 EDT Telemedicine [facility] Sleep Program - [address] [phone] Dwight Colbert [address] [place] [phone] 02/29/2024 10:30 EDT Appointment [facility] Radiology Nuclear Medicine and PET - [address] [phone] 02/29/2024 14:30 EDT Appointment [facility] Radiology Nuclear Medicine and PET [address] [address] 03/01/2024 8:00 EDT Appointment [facility] Radiology Nuclear Medicine and PET [address] [address] 03/01/2024 9:30 EDT Appointment [facility] Radiology Nuclear Medicine and PET [address] [address] Scheduled Referrals Name Type Priority Associated Diagnoses [...] types, PCR Negative Negative 07/13/2023 16:25 EST [facility] Comment:No E6 or E7 mRNA is detected from HPV types 16,18,31,33,35,39,45,51,52,56,58,59,66, and 68 by building equipment inspector mediated amplification. Pap Test CERVIX UTERI STRUCTURE / Unknown 06/27/2023 16:00 EST 07/11/2023 13:44 EST Carly Calderon MD MICROBIOLOG Y - GENERAL ORDERABLES [facility] [address] [place] [phone] * PAP TEST (06/27/2023 16:00 EST) Specimens A. Cervix and/or Endocervix , ThinPrep Imaging System with Manual Evaluation 07/13/2023 16:25 [facility] Specimen Adequacy Satisfactory for Evaluation - transformation zone component absent 07/13/2023 16:25 [facility] General Categorization Negative for intraepithelial lesion or malignancy 07/13/2023 16:25 [facility] Attestation . 07/13/2023 16:25 [facility] at 1625 Clinical History screening 07/13/19 24 16:25 [facility] HPV The result for the Human Papillomavirus (HPV) Detection-High Risk Types is Negative. No E6 or E7 mRNA is detected from HPV types 16,18,31,33,35,39 ,45,51,52,56,58,5 9,66, and 68 by building equipment inspector mediated amplification.Lorena ting was performed on specimen [id number] and was resulted on 07/13/2023 1625 EST by JANET, LAB INSTRUMENT RESULTS IN 07/13/2023 16:25 [facility] Performing Lab [facility] 07/13/2023 16:25 [facility] Scanned Images 07/13/2023 16:25 [facility] Pap Test CERVIX UTERI STRUCTURE / Unknown 06/27/2023 16:00 EST 06/27/2023 16:00 EST Carly Calderon MD PATHOLOGY O RDERABLES [facility] [address] [place] [address] documented in this encounter Visit Diagnoses Diagnosis [...] Reorder 11/17/2022 06/27/2023 traMADol (ULTRAM) 50 mg tabletIndications:Tape Sewer gordo midline low back pain without sciatica Take 1 Tablet by mouth every 6 hours as needed for Pain. Daily Max: 200 mg Reorder 02/01/2023 06/27/2023 blood glucose test strips One Touch Verio IQ or other brand compatible with meter and covered by patient's insurance. Testing QID. 08/11/2020 06/27/2023 blood glucose test strips Brand: FreeSnapMyAdyle Precision Cristo, use as directed if Freestyle Vignesh censor isnt working 10/06/2020 06/27/2023 blood glucose meterIndications:Type 2 diabetes mellitus with diabetic polyneuropathy, with long-term current use of insulin ([facility]) One Touch Verio Flex meter. 12/21/2021 06/27/2023 empagliflozin (JARDIANCE ORAL) Take by mouth. 06/27/2023 SEMGLEE,INSULIN GLARG-YFGN,PEN 100 unit/mL (3 mL) insulin pen INJECT 40 UNITS SUBCUTANEOUSLY AT BEDTIME 04/01/2023 06/27/2023 SITagliptin phosphate (JANUVIA) 100 mg tabletIndications:Type 2 diabetes mellitus with diabetic polyneuropathy, with long-term current use of insulin ([facility]) Take 1 Tablet by mouth daily. Reorder 11/17/2022 06/27/2023 insulin glargine (LANTUS SOLOSTAR/SEMGLEE) 100 unit/mL (3 mL) injection penIndications:Type 2 diabetes mellitus with diabetic polyneuropathy, with long-term current use of insulin ([facility]) Inject 40 Units into the skin at bedtime. Reorder 11/17/2022 06/27/2023 HUMALOG KWIKPEN INSULIN 100 unit/mL injectable penIndications:Type 2 diabetes mellitus with diabetic polyneuropathy, with long-term current use of insulin (HCC-CMS) Inject 12 Units into the skin 3 times daily with meals. Reorder 04/04/2023 06/27/2023 SUMAtriptan (IMITREX) 20 mg/actuation nasal spray Instill 1 [place] into right nostril as needed for Migraine. [...] documented as of this encounter Care Teams Bridge Crane Operator Relationship Specialty Start Date End Date Carly Calderon MD 1 [facility] 1 [place] [address] PCP - General Internal Medicine - Primary Care 12/09/20 Abigail Díaz Shipping Processor 04/21/23 01/03/24 documented as of this encounter
--- OUTSIDE RECORDS SUMMARY | 2024-02-10 01:16 | XMS_ITS | Encounter Summary ---
Author Organization [facility] Address [address] [place] [address] Care Team Providers Care Patriot Missile Air Defense Artillery Name Role Phone Carrington Calderon MD Primary Care Provi anders Abigail Díaz Unavailable [phone] Reason for Visit * Reason Comments Nicotine Dependence Encounter Details Date Type Department Care Team (Late st Contact Info) Description 05/11/2023 Community Health Team [facility] Adult Primary Care - [place] 1 [place], [place] [phone] Kylah Wilson Social History Tobacco Use Types [...] and would like to work with a coach operator 1:1 for additional support along [...] Visit [facility] Adult Primary Care - [address] [phone] Carrington Calderon MD [address] [phone] 02/27/2024 8:30 EDT Telemedicine [facility] Sleep Program - [address] [address] Dwight Colbert [address] [place], [place] [address] 02/29/2024 10:30 EDT Appointment [facility] Radiology Nuclear Medicine and PET - [address] [phone] 02/29/2024 14:30 EDT Appointment [facility] Radiology Nuclear Medicine and PET [address] [address] 03/01/2024 8:00 EDT Appointment [facility] Center Radiology Nuclear Medicine and PET - [address] [address] 03/01/2024 9:30 EDT Appointment [facility] Radiology Nuclear Medicine and PET [address] [phone] documented as of this encounter Visit Diagnoses Not on filedocumented in this encounter Care Teams Patriot Missile Air Defense Artillery Relationship Specialty Start Date End Date Carrington Calderon MD 1 [facility] Level 1 [place] [phone] PCP - General Internal Medicine - Primary Care 12/09/20 Abigail Díaz Outdoor Fitness Trainer 04/21/23 01/03/24 documented as of this encounter
--- OUTSIDE RECORDS SUMMARY | 2024-02-10 01:16 | XMS_ITS | Encounter Summary ---
Author Organization [facility] Address [address] [place] [address] Care Team Providers Care Parts Department Manager Name Role Phone Carrington Calderon MD Primary Care Provi anders Abigail Díaz Unavailable Reason for Visit * Reason Onset Date Comments Appointment Related 06/20/2023 Encounter Details Date Type Department Care Team (Late st Contact Info) Description 06/20/2023 Telephone [facility] Adult Primary Care - [address] [address] Carrington Calderon MD 1 [facility] Level 1 [place] [address] Appointment Related Social History Tobacco [...] Encounter - Jose Luis Wilson - 06/20/2023 3499 EST LVM for patient to get blood work done prior to upcoming visit on 06/27/23. Jose Luis Wilson 06/20/2023 15:40 documented in this encounter Plan of Treatment Upcoming Encounters Date Type Department Care Team (Late st Contact Info) Description 02/21/2024 9:45 EDT Office Visit [facility] Adult Primary Care - [address] [phone] Carrington Calderon MD [address] [phone] 02/27/2024 8:30 EDT Telemedicine [facility] Sleep Program - [address] 995331 Dwight Colbert [address] [place] [phone] 02/29/2024 10:30 EDT Appointment [facility] Radiology Nuclear Medicine and PET - [address] [id number] 02/29/2024 14:30 EDT Appointment [facility] Radiology Nuclear Medicine and PET - [address] [phone] 03/01/2024 8:00 EDT Appointment [facility] Radiology Nuclear Medicine and PET - [address] [address] 03/01/2024 9:30 EDT Appointment [facility] Radiology Nuclear Medicine and PET [address] [address] documented as of this encounter Visit Diagnoses Not on filedocumented in this encounter Care Teams Parts Department Manager Relationship Specialty Start Date End Date Carrington Calderon MD 1 [facility] 1 [place] [address] PCP - General Internal Medicine - Primary Care 12/09/20 Abigail Díaz Pit Laborer 04/21/23 01/03/24 documented as of this encounter
--- OUTSIDE RECORDS SUMMARY | 2024-02-10 01:16 | XMS_ITS | Encounter Summary ---
Author Organization [facility] Address [address] [place] [address] Care Team Providers Care Water Technician Name Role Phone Carrington Calderon MD Primary Care Provi anders Amrita Asencio Unavailable Reason for Referral * Consult (Routine/Next Available) - Closed Specialty Diagnoses / Procedures Referred By Kit goode Referred To Contact Diagnoses Carrington Rothman MD [address] [address] [facility] Team [address] [place] [address] Referral ID Status Reason Start Date Expiration Date V isits Requested Visits Authorized [id number] Closed Specialty Services Required 04/21/2023 1 0 Question Answer Reason for Request: smoking cessation * Referral (Routine/Next Available) - Authorization Not Required Specialty Diagnoses / Procedures Referred By Kit goode Referred To Contact Multidisciplinary Diagnoses Carrington Rothman MD [address] [phone] [facility] Team 128 [facility], [address] [address] Referral ID Status Reason Start Date Expiration Date Visits Requested Visits Authorized [id number] Authorization Not Required Specialty Services Required 04/21/20 23 1 1 Question Answer Reason for Request: tobacco cessation support Encounter Details Date Type Department Care Team (Late st Contact Info) Description 04/21/2023 Patient Outreach [facility] Adult Primary Care [address] [address] Bre Amrita Smoking (Primary Dx) Social History [...] long-term current use of insulin ([facility]) ([facility]) ?? Gastrointestinal/Abdominal Gastroparesis ?? Psychiatric Anxiety and depression ?? Musculoskeletal Chronic midline low back pain without sciatica Neuropathic diabetic ulcer of foot ([facility]) Family history of rheumatoid arthritis ?? [...] - BCB* ASUNCION LUO 05/08/1986 Male Spouse [id number] 02/14/22 [id number] [place] [address] 2. MEDICAID ACO * CRISTY LUO 1985 Female Self [id number] 06/06/22 [address] Any gaps or barriers with healthcare insurance coverage: No DME: scooter, due to amputee diabetic sensor DME vendor: [employer] secondary insurance covers supplies Barriers to using [...] today within 1 week and will contact toddler caregiver if additional assistance is needed as discussed. 2. stella will schedule a counseling appointment with at least one of the counselors provided today within 1 week and will follow up with toddler caregiver at next scheduled follow up on within [...] some marijuana use to combat anxiety symptoms manager corporate marketing reviewed current mental health resources with Stella [...] [facility] Adult Primary Care - [address] [address] Carrington Calderon MD [address] [phone] 02/27/2024 8:30 EDT Telemedicine [facility] Sleep Program - [address] [address] Dwight Colbert [address] [place] [phone] 02/29/2024 10:30 EDT Appointment [facility] Radiology Nuclear Medicine and PET [address] [id number] 02/29/2024 14:30 EDT Appointment [facility] Radiology Nuclear Medicine and PET [address] [phone] 03/01/2024 8:00 EDT Appointment [facility] Radiology Nuclear Medicine and PET [address] [phone] 03/01/2024 9:30 EDT Appointment [facility] Radiology Nuclear Medicine and PET [address] [phone] Scheduled Referrals Name Type Priority Associated Diagnoses Order Schedule AMB CONS/FOLLOW UP OUTPATIENT CARE MANAGEMENT - [facility] Outpatient Referral Routine Consult Smoking Expected: 04/28/2023 (Approximate), Expires: 04/21/2024 AMB CONS/FOLLOW UP SMOKING CESSATION PROGRAM Outpatient Referral Routine Consult Smoking Expected: 04/28/2023 (Approximate), Expires: 04/21/2024 documented as of this encounter Visit Diagnoses Diagnosis Smoking- Primary Tobacco use disorder documented in this encounter Care Teams Water Technician Relationship Specialty Start Date End Date Carrington Calderon MD [address] [place] [phone] PCP - General Internal Medicine - Primary Care 12/09/20 Amrita Asencio Table Runner 04/21/23 01/03/24 documented as of this encounter
--- OUTSIDE RECORDS SUMMARY | 2024-02-10 01:16 | XMS_ITS | Encounter Summary ---
Author Organization [facility] Address [address] [place] [address] Care Team Providers Care Media Services Director Name Role Phone Carrington Calderon MD Primary Care Provi anders Abigail Díaz Unavailable Carmelo Hendrickson Unavailable Unavailable Abigail Díaz Unavailable Reason for Visit * Reason Onset Date Comments Appointment Related 05/04/2023 Encounter Details Date Type Department Care Team (Late st Contact Info) Description 05/04/2023 Telephone [facility] Endocrinology - [facility] [address] [place] [address] Amilcar Ortega MD 62 [facility] [address] [place] [address] Appointment Related Social History Tobacco [...] - 05/04/2023 0823 EST Patient accepted zoom REELER OPERATOR opening with Dr. Ortega today at 4:00. documented in this encounter Plan of Treatment Upcoming Encounters Date Type Department Care Team (Late st Contact Info) Description 02/21/2024 9:45 EDT Office Visit [facility] Adult Primary Care - [address] [phone] Carrington Calderon MD [address] [phone] 02/27/2024 8:30 EDT Telemedicine [facility] Sleep Program - [address] [address]381 Dwight Colbert [address] [place] [phone] 02/29/2024 10:30 EDT Appointment [facility] Radiology Nuclear Medicine and PET - [address] [address] 02/29/2024 14:30 EDT Appointment [facility] Radiology Nuclear Medicine and PET - [address] [phone] 03/01/2024 8:00 EDT Appointment [facility] Radiology Nuclear Medicine and PET - [address] [phone] 03/01/2024 9:30 EDT Appointment [facility] Radiology Nuclear Medicine and PET - [address] [phone] documented as of this encounter Visit Diagnoses Not on filedocumented in this encounter Care Teams Media Services Director Relationship Specialty Start Date End Date Carrington Calderon MD 1 [facility] 1 [place] [address] PCP - General Internal Medicine - Primary Care 12/09/20 Abigail Díaz Supervisor [place] 04/21/23 01/03/24 Carmelo Hendrickson Coordinator 12/01/23 Abigail Díaz Supervisor [place] 01/04/24 documented as of this encounter
--- OUTSIDE RECORDS SUMMARY | 2024-02-10 01:16 | XMS_ITS | Encounter Summary ---
Author Organization [facility] Address [address] [place] [address] Care Team Providers Care Athletic Coach Name Role Phone Carrington Calderon MD Primary Care Provi anders Abigail Díaz Unavailable Carmelo Hendrickson Unavailable Unavailable Reason for Referral * Consult (Routine/Next Available) - Specialty Report Received Specialty Diagnoses / Procedures [facility] Referred To Contact Obstetrics & Gynecology Diagnoses IUD contraception Carrington Calderon MD [address] [phone] [facility] [address] [place] [address] Referral ID Status Reason Start Date Expiration Date Visits Requested Visits Authorized [id number] Specialty Report Received Specialty Services Required 3 1 1 Question Answer Reason for Request: IUD placement Reason for Visit * Reason Onset Date Comments Referral Request 06/01/2023 Encounter Details Date Type Department Care Team (Late st Contact Info) Description 06/01/2023 Telephone [facility] Adult Primary Care - [address] [address] Carrington Calderon MD [address] [phone] Referral Request Social History Tobacco [...] the past 12 months has th e mBlox, gas, oil, or water Striiv threatened to shut off services in your [...] in a long-term (including now)? No 06/14/2023 Housing Stability Vital Sign Answer Norm e Recorded In the last 12 months, was t here a time when you were not able to pay the mortgage or rent on time? No 11/15/2023 In the past 12 months, how m any times have you moved where you were living? 1 11/15/2023 At any time in the past 12 m [facility], were you homeless or living in a long-term (including now)? No 11/15/2023 Interpersonal Safety Answer [...] is calling to get a referral to RECORDS [employer]OC[employer] for a Kriss placement. documented in this encounter Plan of Treatment Upcoming Encounters Date Type Department Care Team (Late st Contact Info) Description 02/21/2024 9:45 EDT Office Visit [facility] Adult Primary Care - [address] [phone] Carrington Calderon MD [address] [phone] 02/27/2024 8:30 EDT Telemedicine [facility] Sleep Program - [address] [address]381 Dwight Colbert [address] [place] [phone] 02/29/2024 10:30 EDT Appointment [facility] Radiology Nuclear Medicine and [address] [phone] 02/29/2024 14:30 EDT Appointment [facility] Radiology Nuclear Medicine and [address] [phone] 03/01/2024 8:00 EDT Appointment [facility] Radiology Nuclear Medicine and PET [address] [phone] 03/01/2024 9:30 EDT Appointment [facility] Radiology Nuclear Medicine and [address] [phone] Scheduled Referrals Name Type Priority Associated Diagnoses Orde r Schedule AMB CONS/FOLLOW UP GYNECOLOGY Outpatient Referral Routine/Next Available IUD contraception Expected: 06/08/2023 (Approximate), Expires: 06/01/2024 documented as of this encounter Visit Diagnoses Diagnosis IUD contraception- Primary Presence of intrauterine contraceptive device documented in this encounter Care Teams Athletic Coach Relationship Specialty Start Date End Date Carrington Calderon MD 1 [facility] 1 [place] [address] PCP - General Internal Medicine - Primary Care 12/09/20 Abigail Díaz Plush Brusher 04/21/23 01/03/24 Carmelo Hendrickson Coordinator 12/01/23 documented as of this encounter
--- OUTSIDE RECORDS SUMMARY | 2024-02-10 01:16 | XMS_ITS | Encounter Summary ---
Author Organization [facility] Address [address] [place] [address] Care Team Providers Care Straight Tooth Gear Generator Operator Name Role Phone Carrington Calderon MD Primary Care Provi anders Abigail Díaz Unavailable [phone] Reason for Visit * Reason Comments Med Change Request Encounter Details Date Type Department Care Team (Late st Contact Info) Description 06/27/2023 [facility] Adult Primary Care - [address] [address] Carrington Calderon MD [address] [phone] Med Change Request Social History [...] Visit [facility] Adult Primary Care - [address] [phone] Carrington Calderon MD 1 [facility] 1 [place] [phone] 02/27/2024 8:30 EDT Telemedicine [facility] Sleep Program - [address] [phone] Dwight Colbert [address] [place] [phone] 02/29/2024 10:30 EDT Appointment [facility] Radiology Nuclear Medicine and PET - [address] 832691 02/29/2024 14:30 EDT Appointment [facility] Radiology Nuclear Medicine and PET - [address] [phone] 03/01/2024 8:00 EDT Appointment [facility] Radiology Nuclear Medicine and PET - [address] [address] 03/01/2024 9:[address] [facility] Radiology Nuclear Medicine and PET - [address] [address] documented as of this encounter Visit Diagnoses Not on filedocumented in this encounter Care Teams Straight Tooth Gear Generator Operator Relationship Specialty Start Date End Date Carrington Calderon MD 1 [facility] 1 [place] [phone] PCP - General Internal Medicine - Primary Care 12/09/20 Abigail Díaz Environmental Compliance Specialist 04/21/23 01/03/24 documented as of this encounter
--- OUTSIDE RECORDS SUMMARY | 2024-02-10 01:16 | XMS_ITS | Encounter Summary ---
Author Organization [facility] Address [address] [place] [address] Care Team Providers Care Ceramics Test Engineer Name Role Phone Carrington Calderon MD Primary Care Provi anders Abigail Díaz Unavailable [phone] Encounter Details Date Type Department Care Team (Late st Contact Info) Description 05/26/2023 Patient Outreach [facility] Adult Primary Care - [place] [address] [place], [place] [address] Abigail Díaz Social History Tobacco Use Types [...] Abigail Díaz - 05/26/2023 1400 EST [facility] Occupational Health And Safety Officer Care Coordination Care management phone consult/visit as scheduled, Stella was not available when called by [facility]. manager transfer left voicemail requesting call back to reschedule if needed CM sent MyCHart Letter, no further outreach will be conducted documented in this encounter Plan of Treatment Upcoming Encounters Date Type Department Care Team (Late st Contact Info) Description 02/21/2024 9:45 EDT Office Visit [facility] Adult Primary Care - [address] [address] Carrington Calderon MD [address] [phone] 02/27/2024 8:30 EDT Telemedicine [facility] Sleep Program - [address] [address] Dwight Colbert [address] [place] [phone] 02/29/2024 10:30 EDT Appointment [facility] Radiology Nuclear Medicine and PET - [address] [phone] 02/29/2024 14:30 EDT Appointment [facility] Radiology Nuclear Medicine and PET - [address] 398[address] 03/01/2024 8:00 EDT Appointment [facility] Radiology Nuclear Medicine and PET - [address] [address] 03/01/2024 9:30 EDT Appointment [facility] Radiology Nuclear Medicine and PET - [address] [phone] documented as of this encounter Visit Diagnoses Not on filedocumented in this encounter Care Teams Ceramics Test Engineer Relationship Specialty Start Date End Date Carrington Calderon MD 1 [facility] 1 [place] [phone] PCP - General Internal Medicine - Primary Care 12/09/20 Abigail Díaz Occupational Health And Safety Officer 04/21/23 01/03/24 documented as of this encounter
--- OUTSIDE RECORDS SUMMARY | 2024-02-10 01:16 | XMS_ITS | Encounter Summary ---
Author Organization [facility] Address [address] [place] [address] Care Team Providers Care Design Quality Engineer Name Role Phone Carrington Calderon MD Primary Care Provi anders Reason for Referral * Consult (Routine/Next Available) - Closed Specialty Diagnoses / Procedures Referred By Kit goode Referred To Contact Diagnoses Cyclical vomiting Carrington Calderon MD [address] [place] [phone] Mallorie Martinez MD [address] [place] [phone] Referral ID Status Reason Start Date Expiration Date V isits Requested Visits Authorized [id number] Closed Specialty Services Required 03/16/2023 1 1 Question Answer Reason for Request: cyclic menstrual vomiting- LARC with suppression of menses Practice Site (External Referral Only[facility] Reason for Visit * Reason Comments Follow-up Diabetes Encounter Details Date Type Department Care Team ([facility] st Contact Info) Description 03/16/2023 10:15 EDT Telemedicine [facility] Adult Primary Care - [address] [address] Carrington Calderon MD [address] [phone] Cyclical vomiting (Primary Dx); Anxiety and depression; Type 2 diabetes mellitus with diabetic polyneuropathy, with long-term current use of insulin ([facility]) (HCC); Night sweats; Lymphocytosis; Abnormal TSH Social [...] Home Patient location state: Visit Location State: [place] The location of the provider: Office Provider location state: Visit Location State: [place] The following people and their roles were [...] of insulin ([facility]) ([facility]): Stella is in need of new Dexcom supplies. I sent a prescription to her pharmacy. 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 All 3 children have [...] [facility] - [address] [phone] Carrington Calderon MD [address] [place] [phone] 02/27/2024 8:30 EDT Telemedicine [facility] Sleep Program - [address] [address] Dwight Colbert [address] [place], [place] [address] 02/29/2024 10:30 EDT Appointment [facility] Radiology Nuclear Medicine and PET [address] [address] 02/29/2024 14:30 EDT Appointment [facility] Radiology Nuclear Medicine and PET [address] [address] 03/01/2024 8:00 EDT Appointment [facility] Radiology Nuclear Medicine and PET [address] [address] 03/01/2024 9:30 EDT Appointment [facility] Radiology Nuclear Medicine and PET [address] [phone] Scheduled Referrals Name Type Priority Associated Diagnoses [...] 4.00 - 12.40 K/cmm 03/17/2023 14:47 EDT [facility] RBC 4.25 3.86 - 5.04 M/cmm 03/17/2023 14:47 EDT [facility] Hemoglobin 13.8 11.6 - 15.2 g/dL 03/17/2023 14:47 EDT [facility] HCT 39.0 34.9 - 44.4 % 03/17/2023 14:47 EDT [facility] MCV 92 81 - 98 fL 03/17/2023 14:47 [facility] MCH 32.5 26.7 - 33.3 pg 03/17/2023 14:47 [facility] MCHC 35.4 32.1 - 35.9 g/dL 03/17/2023 14:47 [facility] RDW-CV 12.7 <14.7 % 03/17/2023 14:47 [facility] RDW-SD 42.2 <50.4 fl 03/17/2023 14:47 [facility] PLT 435(H) 141 - 377 K/cmm 03/17/2023 14:47 [facility] MPV 9.5 9.5 - 12.7 fL 03/17/2023 14:47 [facility] % Neutrophils 44.3 % 03/17/2023 14:47 [facility] % Lymphocytes 44.1 % 03/17/2023 14:47 [facility] % Monocytes 7.4 % 03/17/2023 14:47 [facility] % Eosinophils 3.3 % 03/17/2023 14:47 [facility] % Basophils 0.6 % 03/17/2023 14:47 [facility] % Immature Grans 0.3 % 03/17/20 14:47 [facility] Absolute Neutrophils 7.09 2.20 - 8.85 K/cmm 03/17/2023 14:47 [facility] Absolute Lymphocytes 7.06(H) 1.09 - 3.30 K/cmm 03/17/2023 14:47 [facility] Absolute Monocytes 1.19(H) 0.10 - 0.80 K/cmm 03/17/2023 14:47 [facility] Absolute Eosinophils 0.53 0.03 - 0.61 K/cmm 03/17/2023 14:47 [facility] ABS Basophils 0.09 0.01 - 0.11 K/cmm 03/17/2023 14:47 [facility] Absolute Immature Grans 0.05 0.00 - 0.06 K/cmm 03/17/2023 14:47 [facility] Type of Differential: Auto 03/17/2023 14:47 [facility] Blood VENOUS BLOOD / Unknown Venipuncture / Unknown 03/17/2023 13:52 EDT 03/17/2023 13:52 EDT Carrington Calderon MD PACKAGES & DNA PROBE ORDERABLES [facility] [address] [place] [address] * LEUKEMIA/LYMPHOMA PANEL BY FLOW CYTOMETRY (03/17/2023 13:52 EDT) Final Immunophenotypic Interpretation Peripheral blood, flow cytometric analysis: - No immunophenotypic evidence of a clonal cell population. See comment. 12:55 [facility] Comment The results of flow cytometry show no immunophenotypic evidence of involvement by a clonal lymphoproliferative disorder. Correlation of these findings with morphologic and clinical data is essential. 3 12:55 [facility] Attestation By the signature below, the attending physician certifies that they have 1) personally conducted a gross and/or microscopic examination of the described specimen(s), and/or personally interpreted the results of laboratory testing of the described specimen(s), and 2) personally rendered or confirmed the above diagnosis. 3 12:55 [facility] at 1255 Clinical History night sweats, lymphocytosis, smudge cells 3 12:55 [facility] Description The specimen consists [...] is no increase in blasts. 3 12:55 [facility] Flow Markers CD10, CD117, CD11c, CD16, CD19, CD20, CD3, CD33, CD34, CD38, CD4, CD45, CD5, CD56, CD8, HLA-DR, [place], and Lambda 3 12:55 [facility] FDA Disclaimer This test was developed and its performance characteristics determined by the Department of Pathology and Laboratory Medicine, [facility], [place], [place] It has not been cleared or [...] high complexity clinical laboratory testing. 3 12:55 [facility] Sample Analyzed Date and Time 03/18/23 at 1106 3 12:55 [facility] Scanned Images 3 12:55 [facility] Blood VENOUS BLOOD / Unknown Venipuncture / Unknown 03/17/2023 13:52 EDT 03/17/2023 13:52 EDT Carrington Calderon MD PATHOLOGY O RDERABLES [facility] [address] [place] [address] * THYROID-STIMULATING IMMUNOGLOBULIN (TSI), SERUM (03/14/2023 15:19 EDT) Thyroid-Stimulati ng Immunoglobin, S <1.0 <=1.3 TSI index 03/25/2023 15:55 EDT [facility] Comment: Test Performed by: [facility] [address] [place] [address] Buffing Wheel Former Automatic: Wiley Fry M.D. Ph.D.; CLIA# [id number] Blood VENOUS BLOOD / Unknown Venipuncture / Unknown 03/14/2023 15:19 EDT 03/18/2023 16:07 EDT Carrington Calderon MD CHEMISTRY & BLOOD GAS ORDERABLES [facility] [address] [place] [address] * T3, TOTAL (03/14/2023 15:19 EDT) [facility] T3, Total 143 97 - 169 ng/dL 03/16/2023 15:56 EDT [facility] Blood VENOUS BLOOD / Unknown Venipuncture / Unknown 03/14/2023 15:19 EDT 03/14/2023 15:19 EDT Carrington Calderon MD CHEMISTRY & BLOOD GAS ORDERABLES [facility] [address] [place] [address] * T4 FREE (03/14/2023 15:19 EDT) [facility] T4, Free 1.3 0.8 - 2.2 ng/dL 03/16/2023 14:42 EDT [facility] Blood VENOUS BLOOD / Unknown Venipuncture / Unknown 03/14/2023 15:19 EDT 03/14/2023 15:19 EDT Carrington Calderon MD CHEMISTRY & BLOOD GAS ORDERABLES [facility] [address] [place] [address] * (ABNORMAL) THYROID CASCADE (03/14/2023 15:19 EDT) TSH 0.44(L) 0.47 - 4.68 mIU/L 03/16/2023 14:03 EDT [facility] Comment:Turbid sample identi fied, interpret with caution as turbidity may affect result. Blood VENOUS BLOOD / Unknown Venipuncture / Unknown 03/14/2023 15:19 EDT 03/14/2023 15:19 EDT Narrative [facility] - 03/16/2023 14:03 EDT NOTE: The results of this assay can be falsely lowered due to the consumption of Biotin. Carrington Calderon MD CHEMISTRY & BLOOD GAS ORDERABLES [facility] [address] [place] [address] documented in this encounter Visit Diagnoses Diagnosis Cyclical vomiting- Primary Persistent vomiting Anxiety and depression Dysthymic disorder Type 2 diabetes mellitus with diabetic polyneuropathy, with long-term current use of insulin ([facility]) (HCC) Night sweats Generalized hyperhidrosis Lymphocytosis [...] hyperglycemia, with long-term current use of insulin ([facility]) Use 1 pen needle as directed 4 times daily. 09/02/2020 03/16/2023 documented as of this encounter Care Teams Design Quality Engineer Relationship Specialty Start Date End Date Carrington Calderon MD 1 [facility] Level 1 [place] [phone] PCP - General Internal Medicine - Primary Care 12/09/20 documented as of this encounter
--- OUTSIDE RECORDS SUMMARY | 2024-02-10 01:16 | XMS_ITS | Encounter Summary ---
Author Organization [facility] Address [address] [place] [address] Care Team Providers Care Telecommunications Field Technician Name Role Phone Carrington Calderon MD Primary Care Provi anders Reason for Visit * Reason Onset Date Comments Medications Refill 03/16/2023 Encounter Details Date Type Department Care Team (Late st Contact Info) Description 03/16/2023 Refill [facility] Adult Primary Care [address] [phone] Carrington Calderon MD 1 [facility] Level 1 [place] [phone] Medications Refill Social History Tobacco [...] 0946 EDT omeprazole (PRILOSEC) 20 mg capsule [[id number]] ?? Order Details Dose: 20 mg Route: oral Frequency: DAILY Dispense Quantity: 90 Capsule Refills: 3 ?? Sig: Take 1 Capsule by mouth daily. ?? Start Date: 12/17/22 End Date: -- Written Date: 12/17/22 ondansetron (ZOFRAN-ODT) 4 mg disintegrating tablet [[id number]] ?? Order Details Dose: 4 mg Route: oral Frequency: EVERY 8 HOURS PRN for Nausea Dispense Quantity: 30 Tablet Refills: 11 ?? Sig: Take 1 Tablet by mouth every 8 hours as needed for Nausea. ?? Start Date: 11/17/22 End Date: -- Written Date: 11/17/22 Expiration Date: -- ?? insulin glargine (LANTUS SOLOSTAR/SEMGLEE) 100 unit/mL (3 mL) injection pen [[id number]] ?? Order Details Dose: 40 Units Route: subcutaneous Frequency: AT BEDTIME Dispense Quantity: 36 mL Refills: 4 ?? Sig: Inject 40 Units into the skin at bedtime. ?? Start Date: 11/17/22 End Date: -- Written Date: 11/17/22 LORazepam (ATIVAN) 0.5 mg tablet [[id number]] ?? Order Details Dose: 0.5 mg Route: [...] 20 mg capsule [Carrington Calderon] Preferred pharmacy: [facility] [address] [place] [address] documented in this encounter Plan of Treatment Upcoming Encounters Date Type Department Care Team (Late st Contact Info) Description 02/21/2024 9:45 EDT [facility] Adult Primary Care - [address] [phone] Carrington Calderon MD [address] [phone] 02/27/2024 8:30 EDT Telemedicine [facility] Sleep Program - [address] 228[address] Dwight Colbert [address] [place] [phone] 02/29/2024 10:30 EDT Appointment [facility] Radiology Nuclear Medicine and PET - [address] [phone] 02/29/2024 14:30 EDT Appointment [facility] Radiology Nuclear Medicine and PET - [address] [address] 03/01/2024 8:00 EDT Appointment [facility] Radiology Nuclear Medicine and PET [address] [address] 03/01/2024 9:30 EDT Appointment [facility] Radiology Nuclear Medicine and PET - [address] [phone] documented as of this encounter Visit Diagnoses Diagnosis Anxiety Anxiety state, unspecified Type 2 diabetes mellitus with diabetic polyneuropathy, with long-term current use of insulin ([facility]) Gastroparesis documented in this encounter Care Teams Telecommunications Field Technician Relationship Specialty Start Date End Date Carrington Calderon MD 1 [facility] 1 [place] [phone] PCP - General Internal Medicine - Primary Care 12/09/20 documented as of this encounter
--- OUTSIDE RECORDS SUMMARY | 2024-02-10 01:16 | XMS_ITS | Encounter Summary ---
Author Organization [facility] Address [address] [place] [address] Care Team Providers Care Energy Risk Management Analyst Name Role Phone Carrington Calderon MD Primary Care Provi anders Reason for Referral * Referral (Routine/Next Available) - Specialty Report Received Specialty Diagnoses / Procedures [facility] Referred To Contact Multidisciplinary Diagnoses Adjustment reaction with anxiety and depression Carrington Calderon MD [address] [place] [phone] [facility] [place] 128 [facility] [address] [place] [address] Referral ID Status Reason Start Date Expiration Date Visits Requested Visits Authorized [id number] Specialty Report Received Specialty Services Required 3 1 1 Question Answer Reason for Request: community therapist Reason for Visit * Reason Onset Date Comments Referral Request 03/28/2023 Encounter Details Date Type Department Care Team (Late st Contact Info) Description 03/28/2023 Telephone [facility] Adult Primary Care - [address] [phone] Carrington Calderon MD [address] [phone] Referral Request Social History Tobacco Use Types [...] the short-term targeted therapy available through our [facility]. With this in mind, I have signed a medical home/care management referral so that she can be connected with a social media job titles to help her through this process. If [...] [facility] - [address] [phone] Carrington Calderon MD [address] [phone] 02/27/2024 8:30 EDT Telemedicine [facility] Sleep Program - [address] [phone] Dwight Colbert [address] [place] [phone] 02/29/2024 10:30 EDT Appointment [facility] Radiology Nuclear Medicine and PET - [address] [phone] 02/29/2024 14:30 EDT Appointment [facility] Radiology Nuclear Medicine and PET - [facility] [address] [place], [place] [phone] 03/01/2024 8:00 EDT Appointment [facility] Radiology Nuclear Medicine and PET [address] [address] 03/01/2024 9:30 EDT Appointment [facility] Radiology Nuclear Medicine and PET [address] [address] Scheduled Referrals Name Type Priority Associated Diagnoses Order Schedule AMB CONS/FOLLOW UP OUTPATIENT CARE MANAGEMENT - [facility] Outpatient Referral Routine/Next Available Adjustment reaction with anxiety and depression Expected: 04/05/2023 (Approximate), Expires: 03/29/2024 documented as of this encounter Visit Diagnoses Diagnosis Adjustment reaction with anxiety and depression- Primary Adjustment disorder with mixed anxiety and depressed mood documented in this encounter Care Teams Energy Risk Management Analyst Relationship Specialty Start Date End Date Carrington Calderon MD 1 [facility] 1 [place] [phone] PCP - General Internal Medicine - Primary Care 12/09/20 documented as of this encounter
--- OUTSIDE RECORDS SUMMARY | 2024-02-10 01:16 | XMS_ITS | Encounter Summary ---
Author Organization [facility] Address [address] [place] [address] Care Team Providers Care Lumber Handler Name Role Phone Carrington Calderon MD Primary Care Provi anders Reason for Visit * Reason Onset Date Comments Critical Value 03/14/2023 Encounter Details Date Type Department Care Team (Late st Contact Info) Description 03/14/2023 Telephone [facility] Adult Primary Care - [place] [address] [place], [place] [address] Carrington Calderon MD 1 [facility] Level 1 [place] [phone] Critical Value Social History Tobacco [...] Miscellaneous Notes * Telephone Encounter - Vasiliy iY PA-C - 03/14/20231706 EDT Agree with plan [...] minutes. She was instructed to call the general operations manager MD if it was not going up [...] Visit [facility] Adult Primary Care - [address] [address]991 Carrington Calderon MD [address] [place] [phone] 02/27/2024 8:30 EDT Telemedicine [facility] Sleep Program - [address] [phone] Dwight Colbert [address] [place] [address] [phone] 02/29/2024 10:30 EDT Appointment [facility] Radiology Nuclear Medicine and PET [address] [phone] 02/29/2024 14:30 EDT Appointment [facility] Radiology Nuclear Medicine and PET [address] 686201 03/01/2024 8:00 EDT Appointment [facility] Radiology Nuclear Medicine and PET [address] [phone] 03/01/2024 9:30 EDT Appointment [facility] Radiology Nuclear Medicine and PET [address] 349321 documented as of this encounter Visit Diagnoses Not on filedocumented in this encounter Care Teams Lumber Handler Relationship Specialty Start Date End Date Carrington Calderon MD [address] [place] [phone] PCP - General Internal Medicine - Primary Care 12/09/20 documented as of this encounter
--- OUTSIDE RECORDS SUMMARY | 2024-02-10 01:16 | XMS_ITS | Encounter Summary ---
Author Organization [facility] Address [address] [place] [address] Care Team Providers Care Mailing Machine Operator Name Role Phone Carrington Calderon MD Primary Care Provi anders Abigail Díaz Unavailable Carmelo Hendrickson Unavailable Unavailable Abigail Díaz Unavailable [phone] Reason for Visit * Reason Onset Date Comments Medications Refill 07/06/2023 Encounter Details Date Type Department Care Team (Late st Contact Info) Description 07/06/2023 Refill [facility] Adult Primary Care - [address] 838101 Carrington Calderon MD 1 [facility] Level 1 [place] [phone] Medications Refill Social History Tobacco Use Types [...] with long-term current use of insulin ([facility]) Inject 1 Each into the skin every 3 months. 1 Each 4 07/07/2023 documented in this encounter Miscellaneous Notes * Telephone Encounter - Berenice Mahan - 07/06/2023 0953 EST Medication(s) Requested/ Last Ordered: Dexcom Transmitter 03/16/23 Preferred Pharmacy: [facility] [address] [place] [address] Is patient out of medication? Yes Last Visit Date with Ordering Provider: 06/27/2023 Next Non-Acute Visit Date Scheduled with Care Team: 08/15/2023 Berenice Mahan 07/06/2023 9:54 documented in this encounter Plan of Treatment Upcoming Encounters Date Type Department Care Team (Late st Contact Info) Description 02/21/2024 9:45 EDT Office Visit [facility] Adult Primary Care - [address] [phone] Carrington Calderon MD [address] [phone] 02/27/2024 8:30 EDT Telemedicine [facility] Sleep Program - [address] [phone] [address] [place] [address] 02/29/2024 10:30 EDT Appointment [facility] Radiology Nuclear Medicine and PET - [address] [address] 02/29/2024 14:30 EDT Appointment [facility] Radiology Nuclear Medicine and PET [address] [address] 03/01/2024 8:00 EDT Appointment [facility] Radiology Nuclear Medicine and PET [address] [phone] 03/01/2024 9:30 EDT Appointment [facility] Radiology Nuclear Medicine and PET [address] [address] documented as of this encounter Visit Diagnoses Diagnosis Type 2 diabetes mellitus with diabetic polyneuropathy, with long-term current use of insulin ([facility]) ([facility]) documented in this encounter Discontinued Medications Medication Sig Discontinue Reason Start Date End Da te Blood-Glucose Transmitter (DEXCOM G6 TRANSMITTER) deviceIndications:Type 2 diabetes mellitus with diabetic polyneuropathy, with long-term current use of insulin ([facility]) Inject 1 Each into the skin every 3 months. Reorder 03/16/2023 07/06/2023 documented as of this encounter Care Teams Mailing Machine Operator Relationship Specialty Start Date End Date Carrington Cadleron MD 1 [facility] 1 [place] [address] PCP - General Internal Medicine - Primary Care 12/09/20 Abigail Díaz Venereal Disease Control Head 04/21/23 01/03/24 Carmelo Hendrickson Coordinator 12/01/23 Abigail Díaz Venereal Disease Control Head 01/04/24 documented as of this encounter
--- OUTSIDE RECORDS SUMMARY | 2024-02-10 01:16 | XMS_ITS | Encounter Summary ---
Author Organization [facility] Address [address] [place] [address] Care Team Providers Care Outside B2B Sales Name Role Phone Carrington Calderon MD Primary Care Provi anders Abigail Díaz Unavailable Reason for Visit * Reason Comments Follow-up EST/ Gastroparesis/ Notes in scans * Consult (Routine) - Receiving Office to Obtain Authorization Specialty Diagnoses / Procedures Referred By Kit goode Referred To Contact Diagnoses Gastroparesis Dale Collier MD [address] [place] [address] [place] [address] [facility] [address] [place] [id number] Referral ID Status Reason Start Date Expiration Date Visits Requested Visits Authorized [id number] Receiving Office to Obtain Authorization Specialty Services Required 1 1 Encounter Details Date Type Department Care Team (Late st Contact Info) Description 05/13/2023 11:00 EST Office Visit [facility] Gastroenterology - [address] [address] Scott Arzate MD 111 [facility], Level 5 [place] [phone] Cyclic vomiting syndrome (Primary Dx) Social History [...] (IMITREX) 20 mg/actuation nasal spray Instill 1 [place] into right nostril as needed for Migraine. [...] [facility] - [address] 622231 Carrington Calderon MD [address] [phone] 02/27/2024 8:30 EDT Telemedicine [facility] Sleep Program - [address] [address] Dw[address] Colbert [address] [place] [address] [phone] 02/29/2024 10:30 EDT Appointment [facility] Radiology Nuclear Medicine and PET [address] [id number] 02/29/2024 14:30 EDT Appointment [facility] Radiology Nuclear Medicine and PET [address] [address] 03/01/2024 8:00 EDT Appointment [facility] Radiology Nuclear Medicine and PET [address] [id number] 03/01/2024 9:30 EDT Appointment [facility] Radiology Nuclear Medicine and PET [address] 502471 documented as of this encounter Visit Diagnoses Diagnosis Cyclic vomiting syndrome- Primary Persistent vomiting documented in this encounter Care Teams Outside B2B Sales Relationship Specialty Start Date End Date Carrington Calderon MD [address] [place] [phone] PCP - General Internal Medicine - Primary Care 12/09/20 Abigail Díaz Pen Rider 04/21/23 01/03/24 documented as of this encounter
--- OUTSIDE RECORDS SUMMARY | 2024-02-10 01:16 | XMS_ITS | Encounter Summary ---
Author Organization [facility] Address [address] [place] [address] Care Team Providers Care Bushing And Broach Operator Name Role Phone Carrington Calderon MD Primary Care Provi anders Reason for Referral * Consult (Routine/Next Available) - Specialty Report Received Specialty Diagnoses / Procedures Referred By Kit goode Referred To Contact Endocrinology Diagnoses Type 2 diabetes mellitus with diabetic polyneuropathy, with long-term current use of insulin ([facility]) Fermin Skinner MD [address] [phone] Harjinder Azevedo, DO [address] [place] [address] [place] [phone] Referral ID Status Reason Start Date Expiration Date Visits Requested Visits Authorized [id number] Specialty Report Received Specialty Services Required 04/14/2023 1 1 Question Answer Reason for Request: Type II DM Reason for Visit * Reason Onset Date Comments Referral Request 04/14/2023 Encounter Details Date Type Department Care Team (Late st Contact Info) Description 04/14/[address] [facility] Adult Primary Care - [address] [phone] Carrington Calderon MD [address] [phone] Referral Request Social History Tobacco Use Types [...] EST Spoke with pt who reports her boiler house mechanic recommended she see Dr Azevedo for diabetes. Referral pended for review. * Telephone Encounter - Misty Barahona - 04/14/2023 1308 EST Stella came up to the patient coordinator front desk today (Spouse has an appointment) and is requesting a referral to Nathanael Azevedo, Risk Management Analyst. documented in this encounter Plan of Treatment Upcoming Encounters Date Type Department Care Team (Late st Contact Info) Description 02/21/2024 9:45 EDT Office Visit [facility] Adult Primary Care - [address] [phone] Carrington Calderon MD [address] [place] [phone] 02/27/2024 8:[address] [facility] Sleep Program - [address] 533851 Dwight Colbert [address] [place] [phone] 02/29/2024 10:30 EDT Appointment [facility] Radiology Nuclear Medicine and PET [address] 797251 02/29/2024 14:30 EDT Appointment [facility] Radiology Nuclear Medicine and PET [address] 177091 03/01/2024 8:00 EDT Appointment [facility] Radiology Nuclear Medicine and PET [address] [phone] 03/01/2024 9:30 EDT Appointment [facility] Radiology Nuclear Medicine and PET [address] [phone] Scheduled Referrals Name Type Priority Associated Diagnoses Order Schedule AMB CONS/FOLLOW UP ENDOCRINOLOGY Outpatient Referral Routine/Next Available Type 2 diabetes mellitus with diabetic polyneuropathy, with long-term current use of insulin ([facility]) ([facility]) Expected: 04/21/2023 (Approximate), Expires: 04/14/2024 documented as of this encounter Visit Diagnoses Diagnosis Type 2 diabetes mellitus with diabetic polyneuropathy, with long-term current use of insulin ([facility]) ([facility])- Primary documented in this encounter Care Teams Bushing And Broach Operator Relationship Specialty Start Date End Date Carrington Calderon MD [address] [place] [phone] PCP - General Internal Medicine - Primary Care 12/09/20 documented as of this encounter
--- OUTSIDE RECORDS SUMMARY | 2024-02-10 01:16 | XMS_ITS | Encounter Summary ---
Author Organization [facility] Address [address] [place] [address] Care Team Providers Care Set Up Mold Technician Name Role Phone Carrington Calderon MD Primary Care Provi anders Abigail Díaz Unavailable Reason for Visit * Reason Comments Nicotine Dependence Encounter Details Date Type Department Care Team (Late st Contact Info) Description 05/17/2023 Community Health Team [facility] Adult Primary Care - [place] 1 [place], [place] [phone] Kylah Wilson Social History Tobacco Use Types [...] [facility] Adult Primary Care - [address] 137291 Carrington Calderon MD [address] [phone] 02/27/2024 8:30 EDT Telemedicine [facility] Sleep Program - [address] 018161 Dwight Colbert [address] [place] [address] 02/29/2024 10:30 EDT Appointment [facility] Radiology Nuclear Medicine and PET - [address] [phone] 02/29/2024 14:30 EDT Appointment [facility] Radiology Nuclear Medicine and PET [address] [id number] 03/01/2024 8:00 EDT Appointment [facility] Radiology Nuclear Medicine and PET - [address] [id number] 03/01/2024 9:30 EDT Appointment [facility] Radiology Nuclear Medicine and PET - [address] [address] documented as of this encounter Visit Diagnoses Not on filedocumented in this encounter Care Teams Set Up Mold Technician Relationship Specialty Start Date End Date Carrington Calderon MD 1 [facility] 1 [phone] PCP - General Internal Medicine - Primary Care 12/09/20 Abigail Díaz Advanced Clinical Specialist 04/21/23 01/03/24 documented as of this encounter
--- OUTSIDE RECORDS SUMMARY | 2024-02-10 01:16 | XMS_ITS | Encounter Summary ---
Author Organization [facility] Address [address] [place] [address] Care Team Providers Care Rn Advice Name Role Phone Carrington Calderon MD Primary Care Provi anders Abigail Díaz Unavailable Carmelo Hendrickson Unavailable Unavailable Abigail Díaz Unavailable [phone] Reason for Visit * Reason Comments Medications Refill Encounter Details Date Type Department Care Team (Late st Contact Info) Description 03/31/2023 Refill [facility] Adult Primary Care - [address] [address] Carrington Calderon MD 1 [facility] Level 1 [place] [phone] Medications Refill Social History Tobacco Use Types [...] polyneuropathy, with long-term current use of insulin ([facility]) INJECT 12 UNITS THREE TIMES DAILY [...] 12 UNITS THREE TIMES DAILY WITH MEALS [facility] [address] [place] [address] Confirmed Pharmacy? Yes Patient out of medication? Unknown How many pills does patient have left? unknown Last Refill Date: 11/18/22 Refills left? (explain exceptions requiring early refill) No Recent Visits Date Type Provider Dept 11/17/22 Office Visit Carrington Calderon MD [facility] Adult Prim Care 09/02/22 Office Visit Nimisha Clifton NP [facility] Adult Prim Care 05/20/22 Office Visit Rachel Stein PA-C [facility] Adult Prim Care Showing recent visits within past 540 days with a meds authorizing provider and meeting all other requirements Future Appointments Date Type Provider Dept 01/22/24 Appointment Carrington Calderon MD [facility] Adult Prim Care Showing future [...] [facility] - [address] [phone] Carrington Calderon MD [address] [place] [phone] 02/27/2024 8:30 EDT Telemedicine [facility] Sleep Program - [address] [phone] Dwight Colbert [address] [place] [address] [phone] 02/29/2024 10:30 EDT Appointment [facility] Radiology Nuclear Medicine and [address] [phone] 02/29/2024 14:30 EDT Appointment [facility] Radiology Nuclear Medicine and PET [address] [phone] 03/01/2024 8:00 EDT Appointment [facility] Radiology Nuclear Medicine and PET [address] [phone] 03/01/2024 9:30 EDT Appointment [facility] Radiology Nuclear Medicine and PET [address] [phone] documented as of this encounter Visit Diagnoses Diagnosis Type 2 diabetes mellitus with diabetic polyneuropathy, with long-term current use of insulin ([facility]) documented in this encounter Care Teams Rn Advice Relationship Specialty Start Date End Date Carrington Calderon MD [address] [place], [place] [address], [place] [phone] PCP - General Internal Medicine - Primary Care 12/09/20 Abigail Díaz Gas Prover 04/21/23 01/03/24 Carmelo Hendrickson Coordinator 12/01/23 Abigail Díaz Gas Prover 01/04/24 documented as of this encounter
--- OUTSIDE RECORDS SUMMARY | 2024-02-10 01:16 | XMS_ITS | Encounter Summary ---
Author Organization [facility] Address [address] [place] [address] Care Team Providers Care Multimedia Coordinator Name Role Phone Carrington Calderon MD Primary Care Provi anders Encounter Details Date Type Department Care Team (Late st Contact Info) Description 03/17/2023 13:45 EDT Phlebotomy Only [facility] Laboratory Services - [address] [address] Screw Supervisor, [facility] Lab Night sweats; Lymphocytosis Social [...] [facility] Adult Primary Care - [address] 099071 Carrington Calderon MD [address] [phone] 02/27/2024 8:30 EDT Telemedicine [facility] Sleep Program - [address] [phone] Dwight Colbert [address] [place] [address] [phone] 02/29/2024 10:30 EDT Appointment [facility] Radiology Nuclear Medicine and PET [address] [phone] 02/29/2024 14:30 EDT Appointment [facility] Radiology Nuclear Medicine and PET [address] [phone] 03/01/2024 8:00 EDT Appointment [facility] Radiology Nuclear Medicine and PET [address] [phone] 03/01/2024 9:30 EDT Appointment [facility] Radiology Nuclear Medicine and PET [address] [phone] documented as of this encounter Procedures Procedure Name Priority Date/Time Associated Diagnosis Comments LEUKEMIA/LYMPHOMA PANEL BY FLOW CYTOMETRY Routine 03/17/2023 13:52 EDT Night sweats Lymphocytosis COMPLETE BLOOD COUNT AND DIFFERENTIAL Routine 03/17/2023 13:52 EDT Night sweats Lymphocytosis documented in this encounter Results * (ABNORMAL) COMPLETE BLOOD COUNT AND DIFFERENTIAL (03/17/2023 13:52 EDT) WBC 16.01(H) 4.00 - 12.40 K/cmm 03/17/2023 14:47 [facility] RBC 4.25 3.86 - 5.04 M/cmm 03/17/2023 14:47 [facility] Hemoglobin 13.8 11.6 - 15.2 g/dL 03/17/2023 14:47 [facility] HCT 39.0 34.9 - 44.4 % 03/17/2023 14:47 [facility] MCV 92 81 - 98 fL 03/17/2023 14:47 [facility] MCH 32.5 26.7 - 33.3 pg 03/17/2023 14:47 [facility] MCHC 35.4 32.1 - 35.9 g/dL 03/17/2023 14:47 [facility] RDW-CV 12.7 <14.7 % 03/17/2023 14:47 [facility] RDW-SD 42.2 <50.4 fl 03/17/2023 14:47 [facility] PLT 435(H) 141 - 377 K/cmm 03/17/2023 14:47 [facility] MPV 9.5 9.5 - 12.7 fL 03/17/2023 14:47 [facility] % Neutrophils 44.3 % 03/17/2023 14:47 [facility] % Lymphocytes 44.1 % 03/17/2023 14:47 [facility] % Monocytes 7.4 % 03/17/2023 14:47 [facility] % Eosinophils 3.3 % 03/17/2023 14:47 [facility] % Basophils 0.6 % 03/17/2023 14:47 [facility] % Immature Grans 0.3 % 03/17/20 14:47 [facility] Absolute Neutrophils 7.09 2.20 - 8.85 K/cmm 03/17/2023 14:47 [facility] Absolute Lymphocytes 7.06(H) 1.09 - 3.30 K/cmm 03/17/2023 14:47 [facility] Absolute Monocytes 1.19(H) 0.10 - 0.80 K/cmm 03/17/2023 14:47 [facility] Absolute Eosinophils 0.53 0.03 - 0.61 K/cmm 03/17/2023 14:47 [facility] ABS Basophils 0.09 0.01 - 0.11 K/cmm 03/17/2023 14:47 [facility] Absolute Immature Grans 0.05 0.00 - 0.06 K/cmm 03/17/2023 14:47 [facility] Type of Differential: Auto 03/17/2023 14:47 [facility] Blood VENOUS BLOOD / Unknown Venipuncture / Unknown 03/17/2023 13:52 EDT 03/17/2023 13:52 EDT Carrington Calderon MD PACKAGES & DNA PROBE ORDERABLES [facility] [address] [place] [address] * LEUKEMIA/LYMPHOMA PANEL BY FLOW CYTOMETRY (03/17/2023 13:52 EDT) Final Immunophenotypic Interpretation Peripheral blood, flow cytometric analysis: - No immunophenotypic evidence of a clonal cell population. See comment. 3 12:55 [facility] Comment The results of flow cytometry show no immunophenotypic evidence of involvement by a clonal lymphoproliferative disorder. Correlation of these findings with morphologic and clinical data is essential. 3 12:55 [facility] Attestation By the signature below, the attending physician certifies that they have 1) personally conducted a gross and/or microscopic examination of the described specimen(s), and/or personally interpreted the results of laboratory testing of the described specimen(s), and 2) personally rendered or confirmed the above diagnosis. 3 12:55 [facility] at 1255 Clinical History night sweats, lymphocytosis, smudge cells 3 12:55 [facility] Description The specimen [...] is no increase in blasts. 3 12:55 [facility] Flow Markers CD10, CD117, CD11c, CD16, CD19, CD20, CD3, CD33, CD34, CD38, CD4, CD45, CD5, CD56, CD8, HLA-DR, [place], and Lambda 3 12:55 [facility] FDA Disclaimer This test was developed and its performance characteristics determined by the Department of Pathology and Laboratory Medicine, [facility], [place], [place] It has not been cleared or [...] high complexity clinical laboratory testing. 3 12:55 [facility] Sample Analyzed Date and Time 03/18/23 at 1106 3 12:55 EDT [facility] Scanned Images 3 12:55 EDT [facility] Blood VENOUS BLOOD / Unknown Venipuncture / Unknown 03/17/2023 13:52 EDT 03/17/2023 13:52 EDT Carrington Calderon MD PATHOLOGY O RDERABLES [facility] [address] [place] [address] documented in this encounter Visit Diagnoses Diagnosis Night sweats Generalized hyperhidrosis Lymphocytosis Lymphocytosis (symptomatic) documented in this encounter Care Teams Multimedia Coordinator Relationship Specialty Start Date End Date Carrington Calderon MD 1 [facility] 1 [place] [phone] PCP - General Internal Medicine - Primary Care 12/09/20 documented as of this encounter
--- OUTSIDE RECORDS SUMMARY | 2024-02-10 01:16 | XMS_ITS | Encounter Summary ---
Author Organization [facility] Address [address] [place] [address] Care Team Providers Care Power And Recovery Superintendent Name Role Phone Carrington Calderon MD Primary Care Provi anders Abigail Díaz Unavailable Reason for Visit * Reason Comments Nicotine Dependence Encounter Details Date Type Department Care Team (Late st Contact Info) Description 05/24/2023 Community Health Team [facility] Adult Primary Care - [place] 1 [place], [place] [phone] Kylah Wilson Social History Tobacco Use Types [...] [facility] Primary [facility] - [address] [address] Carrington Calderon MD [address] [phone] 02/27/2024 8:30 EDT Telemedicine [facility] Sleep Program - [address] [phone] Dwight Colbert [address] [place] [address] 02/29/2024 10:30 EDT Appointment [facility] Radiology Nuclear Medicine and PET - [address] [phone] 02/29/2024 14:30 EDT Appointment [facility] Radiology Nuclear Medicine and PET [address] [phone] 03/01/2024 8:00 EDT Appointment [facility] Radiology Nuclear Medicine and PET - [address] [phone] 03/01/2024 9:30 EDT Appointment [facility] Radiology Nuclear Medicine and PET - [address] [address] documented as of this encounter Visit Diagnoses Not on filedocumented in this encounter Care Teams Power And Recovery Superintendent Relationship Specialty Start Date End Date Carrington Calderon MD [address] [place] [phone] PCP - General Internal Medicine - Primary Care 12/09/20 Abigail Díaz Exceptional Children'S Teacher 04/21/23 01/03/24 documented as of this encounter
--- OUTSIDE RECORDS SUMMARY | 2024-02-10 01:16 | XMS_ITS | Encounter Summary ---
Author Organization [facility] Address [address] [place] [address] Care Team Providers Care Vp Software Name Role Phone Carrington Calderon MD Primary Care Provi anders Abigail Díaz Unavailable Carmelo Hendrickson Unavailable Unavailable Abigail Díaz Unavailable [phone] Reason for Visit * Reason Comments Med Change Request Encounter Details Date Type Department Care Team (Late st Contact Info) Description 06/29/2023 [facility] Adult Primary Care - [address] [address] Carrington Calderon MD 1 [facility] Level 1 [place] [phone] Med Change Request Social History Tobacco Use [...] INTO RIGHT NOSTRIL NEEDED FOR MIGRAINE HEADACHE [facility] [address] [place] [address] Confirmed Pharmacy? Yes Patient out of medication? Unknown How many pills does patient have left? unknown Last Refill Date: 06/27/23 Refills left? (explain exceptions requiring early refill) No Recent Visits Date Type Provider Dept 06/27/23 Office Visit Carrington Calderon MD [facility] Adult Prim [facility] 11/17/22 Office Visit Carrington Calderon MD [facility] Adult Prim [facility] 09/02/22 Office Visit Nimisha Clifton NP [facility] Adult Prim Care 05/20/22 Office Visit Rachel Stein PA-C [facility] Adult Prim Care Showing recent visits within past 540 days with a meds authorizing provider and meeting all other requirements Future Appointments Date Type Provider Dept 08/15/23 Appointment Carrington Calderon MD [facility] Adult Prim Care Showing future appointments within next 150 days with a meds authorizing provider and meeting all other requirements Future appointment: Already Scheduled JOSS WASHINGTON RN 06/29/2023 16:19 documented in this encounter Plan of Treatment Upcoming Encounters Date Type Department Care Team (Late st Contact Info) Description 02/21/2024 9:45 EDT Office Visit [facility] Adult Primary Care - [address] 318851 Carrington Calderon MD [address] [place] [phone] 02/27/2024 8:30 EDT Telemedicine [facility] Sleep Program - [address] 279221 Dwight Colbert [address] [place] [address] [phone] 02/29/2024 10:30 EDT Appointment [facility] Radiology Nuclear Medicine and PET [address] [phone] 02/29/2024 14:30 EDT Appointment [facility] Radiology Nuclear Medicine and PET [address] [id number] 03/01/2024 8:00 EDT Appointment [facility] Radiology Nuclear Medicine and PET [address] [id number] 03/01/2024 9:30 EDT Appointment [facility] Radiology Nuclear Medicine and PET [address] [phone] documented as of this encounter Visit Diagnoses Not on filedocumented in this encounter Discontinued Medications Medication Sig Discontinue Reason Start Date End Da te SUMAtriptan (IMITREX) 20 mg/actuation nasal spray Instill 1 [place] into right nostril as needed for Migraine. 06/27/2023 06/29/2023 documented as of this encounter Care Teams Vp Software Relationship Specialty Start Date End Date Carrington Calderon MD 1 [facility] 1 [place] [phone] PCP - General Internal Medicine - Primary Care 12/09/20 Abigail Díaz Surgeon/President 04/21/23 01/03/24 Carmelo Hendrickson Coordinator 12/01/23 Abigail Díaz Surgeon/President 01/04/24 documented as of this encounter
--- OUTSIDE RECORDS SUMMARY | 2024-02-10 01:16 | XMS_ITS | Encounter Summary ---
Author Organization [facility] Address [address] [place] [address] Care Team Providers Care Entry Level Electrical Engineer Name Role Phone Carrington Calderon MD Primary Care Provi anders Reason for Visit * Reason Onset Date Comments Coordination Of Care 03/30/2023 Encounter Details Date Type Department Care Team (Late st Contact Info) Description 03/30/2023 Telephone [facility] Adult Primary Care [facility] 1 [place], [place] [phone] Carrington Calderon MD 1 [facility] Level 1 [place] [phone] Coordination Of Care Social History [...] [facility] Adult Primary Care - [address] 279341 Carrington Calderon MD [address] [phone] 02/27/2024 8:30 EDT Telemedicine [facility] Sleep Program - [address] [phone] Dwight Colbert [address] [place] [address] [phone] 02/29/2024 10:30 EDT Appointment [facility] Radiology Nuclear Medicine and PET [address] [id number] 02/29/2024 14:30 EDT Appointment [facility] Radiology Nuclear Medicine and PET [address] [id number] 03/01/2024 8:00 EDT Appointment [facility] Radiology Nuclear Medicine and PET [address] [id number] 03/01/2024 9:30 EDT Appointment [facility] Radiology Nuclear Medicine and PET [address] [phone] Scheduled Orders Name Type Priority Associated Diagnoses [...] current use of insulin ([facility]) ([facility]) Expected: 03/30/2023 (Approximate), Expires: 03/30/2024 documented as of this encounter Visit Diagnoses Diagnosis Lymphocytosis- Primary Lymphocytosis (symptomatic) Abnormal thyroid function test Nonspecific abnormal results of thyroid function study Type 2 diabetes mellitus with diabetic polyneuropathy, with long-term current use of insulin ([facility]CC-CMS) (HCC) documented in this encounter Care Teams Entry Level Electrical Engineer Relationship Specialty Start Date End Date Carrington Calderon MD 1 [facility] 1 [place] [phone] PCP - General Internal Medicine - Primary Care 12/09/20 documented as of this encounter
--- OUTSIDE RECORDS SUMMARY | 2024-02-10 01:16 | XMS_ITS | Encounter Summary ---
Author Organization [facility] Address [address] [place] [address] Care Team Providers Care Circus Roustabout Name Role Phone Carrington Calderon MD Primary Care Provi anders Abigail Díaz Unavailable Reason for Visit * Reason Onset Date Comments Revenue Settlements Administrator Message 05/26/2023 Encounter Details Date Type Department Care Team (Late st Contact Info) Description 05/26/2023 Telephone [facility] Adult Primary Care - [address] [address] Samantha Hough MD [address] [place] [phone] Revenue Settlements Administrator Message Social History Tobacco Use Types Packs/Day [...] - Samantha Hough MD - 05/26/20232051 EST Revenue Settlements Administrator Provider Documentation Returned to page to mother [...] - Samantha Hough MD - 05/26/20232022 EST Revenue Settlements Administrator Provider Documentation 8:20 pm page to drophammer operator who states mother in law of patient calling due to concern of patient being sick and vomiting Financial Engineer called back x 2, direct to voicemail with no voicemail set up. Await additional calls. Samantha Hough MD documented in this encounter Plan of Treatment Upcoming Encounters Date Type Department Care Team (Late st Contact Info) Description 02/21/2024 9:45 EDT Office Visit [facility] Adult Primary Care - [place] 1 [place], [place] [address]85[address] Carrington Calderon MD 1 [facility] Level 1 [place] [phone] 02/27/2024 8:30 EDT Telemedicine [facility] Sleep Program - [address] [address] Dwight Colbert [address] [place] [address] [phone] 02/29/2024 10:30 EDT Appointment [facility] Radiology Nuclear Medicine and PET - [address] [id number] 02/29/2024 14:30 EDT Appointment [facility] Radiology Nuclear Medicine and PET - [address] [id number] 03/01/2024 8:00 EDT Appointment [facility] Radiology Nuclear Medicine and PET - [address] [id number] 03/01/2024 9:30 EDT Appointment [facility] Radiology Nuclear Medicine and PET [address] [id number] documented as of this encounter Visit Diagnoses Not on filedocumented in this encounter Care Teams Circus Roustabout Relationship Specialty Start Date End Date Carrington Calderon MD [address] [phone] PCP - General Internal Medicine - Primary Care 12/09/20 Abigail Díaz Pool Lifeguard 04/21/23 01/03/24 documented as of this encounter
--- OUTSIDE RECORDS SUMMARY | 2024-02-10 01:17 | XMS_ITS | Encounter Summary ---
Author Organization [facility] Address [address] [place] [address] Care Team Providers Care Buyer Assistant Name Role Phone Carrington Calderon MD Primary Care Provi anders Reason for Referral * Medication Prior Authorization - Authorized Specialty Diagnoses / Procedures Referred By Kit goode Referred To Contact Diagnoses Chronic midline low back pain without sciatica Nimisha Clifton NP [address] [phone] Referral ID Status Reason Start Date Expiration Date V isits Requested Visits Authorized [id number] Authorized 08/05/2022 09/04/2023 1 1 Reason for Visit * Reason Comments Pre-op Exam Toe amputation Encounter Details Date Type Department Care Team (Late st Contact Info) Description 09/02/2022 11:15 EDT Office Visit [facility] Adult Primary Care - [address] [address] Nimisha Clifton NP [address] [phone] Osteomyelitis of left foot, unspecified [...] who presents today for preop. Surgery in [facility]. Hospitalized last week for infection tue-tue. [...] shares that she follows with endocrine in [facility], next visit in September. Believes her last [...] of insulin ([facility]) ([facility]) ??? Gastroparesis ??? Neuropathic diabetic ulcer of foot ([facility]) ??? Tobacco use ??? Skin infection [...] referral for therapy. ??? Diabetes ([facility]) ([facility]) A1c 10.3 on 11/28/2019 - poorly controlled ??? Diabetes mellitus, type 2 ([facility]) ([facility]) pt check blood sugars at [...] occasionally ??? Neuropathic diabetic ulcer of foot ([facility]) 09/17/2021 ??? Obesity, unspecified ??? Osteomyelitis ([facility]) ([facility]) of left great toe-s/p amputation [...] 0 ??? blood glucose test strips Brand: [employer] Precision Crist[place], use as directed if Freestyle [...] daily. 400 Each 2 ??? lancets Brand: [employer], use as directed if Freestyle Vignesh roy [...] [facility] Adult Primary Care - [address] [phone] Carrington Calderon MD [address] [phone] 02/27/2024 8:30 EDT Telemedicine [facility] Sleep Program - [address] [address]4741 Dwight Colbert [address] [place] [address] [phone] 02/29/2024 10:30 EDT Appointment [facility] Radiology Nuclear Medicine and PET [address] [id number] 02/29/2024 14:30 EDT Appointment [facility] Radiology Nuclear Medicine and PET [address] [id number] 03/01/2024 8:00 EDT Appointment [facility] Radiology Nuclear Medicine and PET [address] [id number] 03/01/2024 9:30 EDT Appointment [facility] Radiology Nuclear Medicine and PET [address] [phone] documented as of this encounter Visit Diagnoses Diagnosis Osteomyelitis of left foot, unspecified type ([facility])- Primary Type 2 diabetes mellitus with diabetic polyneuropathy, with long-term current use of insulin ([facility]) Chronic midline low back pain without sciatica [...] 06/27/2023 added in this encounter Care Teams Buyer Assistant Relationship Specialty Start Date End Date Carrington Calderon MD 1 [facility] Level 1 [place] [phone] PCP - General Internal Medicine - Primary Care 12/09/20 documented as of this encounter
--- OUTSIDE RECORDS SUMMARY | 2024-02-10 01:17 | XMS_ITS | Encounter Summary ---
Author Organization [facility] Address [address] [place] [address] Care Team Providers Care Records And Tape Recordings Engineer Name Role Phone Carrington Calderon MD Primary Care Provi anders Abigail Díaz Unavailable [phone] Carmelo Hendrickson Unavailable Unavailable Abigail Díaz Unavailable [phone] Reason for Visit * Reason Onset Date Comments Prior Auth, Medication 11/18/2022 Encounter Details Date Type Department Care Team (Late st Contact Info) Description 11/18/2022 Telephone [facility] Adult Primary Care - [address] [phone] Carrington Calderon MD 1 [facility] Level [address] [place] [phone] Prior Auth, Medication Social History Tobacco Use [...] polyneuropathy, with long-term current use of insulin ([facility]) Inject 8-14 Units into the [...] 100 unit/mL (3 mL) injectable pen Mejia: [id number] documented in this encounter Plan of Treatment Upcoming Encounters Date Type Department Care Team (Late st Contact Info) Description 02/21/2024 9:45 EDT Office Visit [facility] Adult Primary Care - [address] [phone] Carrington Calderon MD 1 [facility] 1 [place] [phone] 02/27/2024 8:30 EDT Telemedicine [facility] Sleep Program - [address] [phone] Dwight Colbert [address] [place] [address] [phone] 02/29/2024 10:30 EDT Appointment [facility] Radiology Nuclear Medicine and PET [address] [id number] 02/29/2024 14:30 EDT Appointment [facility] Radiology Nuclear Medicine and PET [address] [id number] 03/01/2024 8:00 EDT Appointment [facility] Radiology Nuclear Medicine and [address] [id number] 03/01/2024 9:30 EDT Appointment [facility] Radiology Nuclear Medicine and [address] [phone] documented as of this encounter Visit Diagnoses Diagnosis Type 2 diabetes mellitus with diabetic polyneuropathy, with long-term current use of insulin ([facility])- Primary documented in this encounter [...] documented as of this encounter Care Teams Records And Tape Recordings Engineer Relationship Specialty Start Date End Date Carrington Calderon MD 1 [facility] 1 [place] [phone] PCP - General Internal Medicine - Primary Care 12/09/20 Abigail Díaz Paving Supervisor 04/21/23 01/03/24 Carmelo Hendrickson Coordinator 12/01/23 Abigail Díaz Paving Supervisor 01/04/24 documented as of this encounter
--- OUTSIDE RECORDS SUMMARY | 2024-02-10 01:17 | XMS_ITS | Encounter Summary ---
Author Organization [facility] Address [address] [place] [address] Care Team Providers Care Dance Entertainer Name Role Phone Carrington Calderon MD Primary Care Provi anders Reason for Referral * PT/OT/ST (Routine/Next Available) - Closed Specialty Diagnoses / Procedures Referred By Kit goode Referred To Contact Rehab Therapies Diagnoses Bilateral chronic knee pain Chronic low back pain, unspecified back pain laterality, unspecified whether sciatica present Carrington Calderon MD [address] [phone] Referral ID Status Reason Start Date Expiration Date V isits Requested Visits Authorized [id number] Closed Specialty Services Required 11/17/2022 1 1 Question Answer Reason for Request: bilateral knee and low back pain Practice Site (External Referral Only): [facility] [place] Reason for Visit * Reason Comments Annual Exam Encounter Details Date Type Department Care Team (Late st Contact Info) Description 11/17/2022 10:30 EDT Office Visit [facility] Adult Primary Care - [address] [address] Carrington Calderon MD [address] [phone] Visit for preventive health examination [...] polyneuropathy, with long-term current use of insulin ([facility]) Inject 40 Units into the [...] type 2 diabetes mellitus ([facility]) Take 1 Capsule by mouth every morning AND 3 Capsules at bedtime. 360 Capsule 4 11/17/2022 06/27/2023 SITagliptin phosphate (JANUVIA) 100 mg tabletIndications:Type 2 diabetes mellitus with diabetic polyneuropathy, with long-term current use of insulin ([facility]) Take 1 Tablet by mouth [...] current use of insulin ([facility]) ([facility]): Empagliflozin was stopped recently in the setting [...] HEMOGLOBIN A1C - THYROID CASCADE - URINE DIKTUDG-WG-BVWXYEEDUK RATIO (ACR) Gastroparesis: Refilled omeprazole and ondansetron. - omeprazole (PRILOSEC) 20 mg capsule - ondansetron (ZOFRAN-ODT) 4 mg disintegrating tablet Diabetic polyneuropathy associated with type 2 diabetes mellitus ([facility]) ([facility]): Continue gabapentin. She is comfortable with this [...] minutes today in chart review, care coordination, fogg-av-subo time with the patient independent of preventive [...] [facility] Adult Primary Care - [address] [phone] Carrington Calderon MD [address] [phone] 02/27/2024 8:30 EDT Telemedicine [facility] Sleep Program - [address] [phone] Dwight Colbert [address] [place] [address] [phone] 02/29/2024 10:30 EDT Appointment [facility] Radiology Nuclear Medicine and PET [address] [id number] 02/29/2024 14:30 EDT Appointment [facility] Radiology Nuclear Medicine and PET - [address] [id number] 03/01/2024 8:00 EDT Appointment [facility] Radiology Nuclear Medicine and PET [address] [id number] 03/01/2024 9:30 EDT Appointment [facility] Radiology Nuclear Medicine and PET [address] [phone] Scheduled Referrals Name Type Priority Associated Diagnoses [...] polyneuropathy, with long-term current use of insulin ([facility]) Gastroparesis Diabetic polyneuropathy associated with type 2 diabetes mellitus ([facility]) Chronic low back pain, unspecified back [...] polyneuropathy, with long-term current use of insulin ([facility]) Inject 40 Units into the [...] 11/17/2022 documented in this encounter Care Teams Dance Entertainer Relationship Specialty Start Date End Date Carrington Calderon MD 1 [facility] Level 1 [place] [phone] PCP - General Internal Medicine - Primary Care 12/09/20 documented as of this encounter
--- OUTSIDE RECORDS SUMMARY | 2024-02-10 01:17 | XMS_ITS | Encounter Summary ---
Author Organization [facility] Address [address] [place] [address] Care Team Providers Care Salesperson Men'S Hats Name Role Phone Carrington Calderon MD Primary Care Provi anders Reason for Visit * Reason Comments Emesis Reports multiple day s of vomiting. Hx gastroenteritis with similar presentations. Endorses dizziness. Lost consciousness in triage. VSS. Reports pain everywhere. Encounter Details Date Type Department Care Team (Late st Contact Info) Description 12/13/2022 17:42 EDT - 12/13/2022 21:40 EDT Emergency [facility] Emergency Department - [address] [id number] Brijesh Esposito MD 111 [facility], Level 1 [place] [address] Non-intractable vomiting with nausea (Primary [...] 08/20/2020 lidocaine 5 % (LIDODERM) 5 % patchIndications:Cw Operator gordo midline low back pain without sciatica Place 1 Patch onto the skin daily. Patch(es) may remain in place for up to 12 hours in any 24-hour period. 30 Patch 2 09/02/2022 blood glucose meterIndications:Type 2 diabetes mellitus with diabetic polyneuropathy, with long-term current use of insulin ([facility]) One Touch Verio Flex meter. [...] polyneuropathy associated with type 2 diabetes mellitus ([facility]) Take 1 Capsule by mouth every morning AND 3 Capsules at bedtime. 360 Capsule 4 11/17/2022 06/27/2023 insulin glargine (LANTUS SOLOSTAR/SEMGLEE) 100 unit/mL (3 mL) injection penIndications:Type 2 diabetes mellitus with diabetic polyneuropathy, with long-term current use of insulin ([facility]) Inject 40 Units into the skin at bedtime. 36 mL 4 11/17/2022 06/27/2023 insulin lispro (HUMALOG KWIKPEN INSULIN) 100 unit/mL injectable penIndications:Type 2 diabetes mellitus with diabetic polyneuropathy, with long-term current use of insulin ([facility]) Inject 8-14 Units into the skin 3 times daily with meals. 15 mL 3 11/18/2022 04/04/2023 insulin pen needles 31G x 5/16Indications:Type 2 diabetes mellitus with hyperglycemia, with long-term current use of insulin ([facility]) Use 1 pen needle as [...] polyneuropathy, with long-term current use of insulin ([facility]) Take 1 Tablet by mouth [...] Means Destination Comment s Home or Self Mcfp documented in this [...] [facility] Adult Primary Care - [address] [address] Carrington Calderon MD 1 [facility] 1 [place] [phone] 02/27/2024 8:30 EDT Telemedicine [facility] Sleep Program - [address] [address] Dwight Colbert [address] [place] [address] 02/29/2024 10:30 EDT Appointment [facility] Radiology Nuclear Medicine and PET - [address] [address] 02/29/2024 14:30 EDT [facility]ointment [facility] Radiology Nuclear Medicine and PET - [address] [address] 03/01/2024 8:00 EDT Appointment [facility] Radiology Nuclear Medicine and PET [address] [phone] 03/01/2024 9:30 EDT Appointment [facility] Radiology Nuclear Medicine and PET [address] [address] documented as of this encounter Procedures Procedure [...] 6:15 EDT) 12/20/2022 6:15 EDT Scan 2 Pig Sticker PROCEDURE/MINOR BRAULIO GICAL ORDERABLES * ECG REPORT - SCANNED (12/20/2022 6:15 EDT) 12/20/2022 6:15 EDT Scan 2 Pig Sticker PROCEDURE/MINOR BRAULIO GICAL ORDERABLES * POCT TEST, CLINITEK (12/13/2022 20:26 EDT) UPT Result Negative Negative 12/13/2022 20:32 EDT [facility] HN LAB COMMENT (CLINITEK, UPT) Test performed at Emergency Department 12/13/2022 20:32 EDT [facility] Comment:False negative resul ts may occur in women who are beyond 5-8 weeks gestation. Diagnosis of should be based on a correlation of test results with typical clinical signs and symptoms. Urine URINE SPECIMEN COLLECTION, CLEAN CATCH / Unknown 12/13/2022 20:26 EDT 12/13/2022 20:32 EDT Fran Bush MD POINT OF CARE TEST O RDERABLES [facility] [address] [place] [address] * (ABNORMAL) POCT URINE DIPSTICK, CLINITEK (12/13/2022 20:24 EDT) Color, UA Yellow Yellow 12/13/2022 20:26 [facility] Clarity, UA Clear Clear 12/13/2022 20:26 [facility] Glucose, UA Negative Negative mg/dL 12/13/2022 20:26 [facility] Bilirubin, UA Negative Negative 12/13/2022 20:26 [facility] Ketones, UA 3+(AA) Negative 12/13/2022 20:26 [facility] Specific [place], Urine 1.020 1.001 - 1.035 12/13/2022 20:26 [facility] Blood, UA 3+(A) Negative 12/13/2022 20:26 [facility] pH, UA 7.0 4.6 - 8.0 12/13/2022 20:26 [facility] Protein, UA 1+(A) Negative 12/13/2022 20:26 [facility] Urobilinogen, UA 0.2 0.2 - 1.0 mg/dL 12/13/2022 20:26 [facility] Nitrite, UA Negative Negative 12/13/2022 20:26 [facility] Leuk Esterase Trace(A) Negative 12/13/2022 20:26 [facility] HN LAB COMMENT (CLINITEK, UR) Test performed at Emergency Department 12/13/2022 20:26 [facility] Urine URINE SPECIMEN COLLECTION, CLEAN CATCH / Unknown 12/13/2022 20:24 EDT 12/13/2022 20:26 EDT Fran Bush MD POINT OF CARE TEST O RDERABLES [facility] [address] [place] [address] * POCT CSN BARCODE URINE DIPSTICK (12/13/2022 20:20 EDT) Urine URINE SPECIMEN COLLECTION, CLEAN CATCH / Unknown Urine Collect / Unknown 12/13/2022 20:20 EDT 12/13/2022 20:20 EDT Fran Bush MD LAB INFO SERVICE AND SUPPORT & PHONE RESULT Performing Organization Address [facility] Co de Phone Number [facility] [address] [place] [address] * POCT CSN BARCODE URINE PREG TEST (12/13/2022 20:20 EDT) Urine URINE SPECIMEN COLLECTION, CLEAN CATCH / Unknown Urine Collect / Unknown 12/13/2022 20:20 EDT 12/13/2022 20:20 EDT Fran Bush MD LAB INFO SERVICE AND SUPPORT & PHONE RESULT Performing Organization Address [facility] Co de Phone Number [facility] [address] [place] [address] * EKG 12-LEAD (12/13/2022 18:09 EDT) 12/13/2022 18:0 9 EDT Narrative [facility] EKG - 12/17/2022 9:43 EDT ?[facility] Emergency ? Test Date: ?2022-12-13 Pat Name: ? CRISTY LUO ?Department: ?? ED ? Room: ? AC17 Gender: ? Female ? Dinker: ?? [id number] : ?1985 ? Requested By: CATE Zhao Number: [id number] ? Sammie MARTÍNEZ: ?? CINDY SNYDER MD ? Measurements Intervals ?Loris ? Rate: ? 85 ? P: ?57 [place]: ? 144 ?QRS: ?5 QRSD: ? 97 [...] Cindy Snyder Jr., MD - 12/17/[address] [facility] Emergency Test Date: 2022-12-13 Pat Name: CRISTY LUO Department: ED Room: [facility] Gender: Female Dinker: [id number] : 1985 Requested By: CATE COLEY Order Number: [id number] Reading MD: CINDY SNYDER MD Measurements Intervals Loris Rate: 85 P: 57 NJ: 144 QRS: 5 QRSD: 97 T: -1 QT: 363 QTc: 432 Interpretive Statements SINUS RHYTHM WITH SINUS ARRHYTHMIA Compared to ECG 05/20/2022 14:39:55 Sinus tachycardia no longer present T-wave abnormality no longer present I reviewed the tracing and have either agreed or edited the findings inthis report. Electronically Signed On 12-17-2022 9:43:44 EDT by CINDY SANDOVAL. Brijesh Esposito MD CARDIAC ECG ORDERABL ES [facility] EKG * (ABNORMAL) COMPLETE BLOOD COUNT AND DIFFERENTIAL (12/13/2022 18:04 EDT) WBC 17.27(H) 4.00 - 12.40 K/cmm 12/13/2022 18:17 [facility] RBC 4.72 3.86 - 5.04 M/cmm 12/13/2022 18:17 [facility] Hemoglobin 14.9 11.6 - 15.2 g/dL 12/13/2022 18:17 [facility] HCT 41.3 34.9 - 44.4 % 12/13/2022 18:17 [facility] MCV 88 81 - 98 fL 12/13/2022 18:17 [facility] MCH 31.6 26.7 - 33.3 pg 12/13/2022 18:17 [facility] MCHC 36.1(H) 32.1 - 35.9 g/dL 12/13/2022 18:17 [facility] RDW-CV 13.0 <14.7 % 12/13/2022 18:17 [facility] RDW-SD 41.4 <50.4 fl 12/13/2022 18:17 [facility] PLT 434(H) 141 - 377 K/cmm 12/13/2022 18:17 [facility] MPV 9.3(L) 9.5 - 12.7 fL 12/13/2022 18:17 [facility] % Neutrophils 65.9 % 12/13/2022 18:17 [facility] % Lymphocytes 25.1 % 12/13/2022 18:17 [facility] % Monocytes 8.2 % 12/13/2022 18:17 [facility] % Eosinophils 0.3 % 12/13/2022 18:17 [facility] % Basophils 0.3 % 12/13/2022 18:17 [facility] % Immature Grans 0.2 % 12/14/19 18:17 [facility] Absolute Neutrophils 11.39(H) 2.20 - 8.85 K/cmm 12/13/2022 18:17 [facility] Absolute Lymphocytes 4.33(H) 1.09 - 3.30 K/cmm 12/13/2022 18:17 [facility] Absolute Monocytes 1.41(H) 0.10 - 0.80 K/cmm 12/13/2022 18:17 [facility] Absolute Eosinophils 0.05 0.03 - 0.61 K/cmm 12/13/2022 18:17 [facility] ABS Basophils 0.05 0.01 - 0.11 K/cmm 12/13/2022 18:17 [facility] Absolute Immature Grans 0.04 0.00 - 0.06 K/cmm 12/13/2022 18:17 [facility] Type of Differential: Auto 12/13/2022 18:17 [facility] Blood VENOUS BLOOD / Unknown Venipuncture / Unknown 12/13/2022 18:04 EDT 12/13/2022 18:08 EDT Fran Bush MD PACKAGES & DNA PROBE ORDERABLES [facility] [address] [place] [address] * (ABNORMAL) COMPREHENSIVE METABOLIC PANEL (CMP) (12/13/2022 18:04 ED) Sodium 138 136 - 145 mmol/L 12/13/2022 18:27 [facility] Potassium 3.1(L) 3.5 - 5.0 mmol/L 12/13/2022 18:27 [facility] Chloride 94(L) 96 - 110 mmol/L 12/13/2022 18:27 [facility] CO2 Total 28 22 - 32 mmol/L 12/13/2022 18:27 [facility] Glucose 220(H) 70 - 99 mg/dl 12/13/2022 18:27 [facility] BUN 17 10 - 26 mg/dL 12/13/2022 18:27 [facility] Creatinine 0.43(L) 0.52 - 1.04 mg/dL 12/13/2022 18:27 [facility] eGFR 128 >60 mL/min/1.7 3m2 12/13/2022 18:27 [facility] Total Protein 7.4 6.3 - 8.2 g/dL 12/13/2022 18:27 [facility] Albumin 4.3 3.4 - 4.9 g/dL 12/13/2022 18:27 [facility] Alkaline Phosphatase 92 38 - 126 U/L 12/13/2022 18:27 [facility] AST 27 15 - 46 U/L 12/13/2022 18:27 [facility] ALT 31 <35 U/L 12/13/2022 18:27 [facility] Bilirubin, Total 0.6 <1.4 mg/dL 12/14/19 18:27 [facility] Calcium 9.8 8.5 - 10.5 mg/dL 12/13/2022 18:27 [facility] Albumin/Globulin Ratio 1.4 1.0 - 2.5 g/dL 12/13/2022 18:27 [facility] Anion Gap 16(H) 5 - 14 mmol/L 12/13/2022 18:27 EDT [facility] Blood VENOUS BLOOD / Unknown Venipuncture / Unknown 12/13/2022 18:04 EDT 12/13/2022 18:08 EDT Fran Bush MD CHEMISTRY & BLOOD GA S ORDERABLES Performing Organization Address City/[facility]/ZIP Co de Phone Number [facility] [address] [place] [address] * (ABNORMAL) POCT GLUCOSE, INTERFACED (12/13/2022 18:01 EDT) Glucose, POC 223(H) 70 - 100 mg/dL 12/13/2022 18:03 EDT [facility] HN LAB POC COMMENT (GLUCOSE) Test Performed by Nursing Services 12/13/2022 18:03 EDT [facility] Blood CAPILLARY BLOOD / Unknown 12/13/2022 18:01 EDT 12/13/2022 18:03 EDT Provider Unknown POINT OF CARE TEST O RDERABLES Performing Organization Address City/[facility]/ZIP Co de Phone Number [facility] [address] [place] [address] documented in this encounter Visit Diagnoses Diagnosis [...] 12/13/2022 documented in this encounter Care Teams Salesperson Men'S Hats Relationship Specialty Start Date End Date Carrington Calderon MD 1 [facility] Level [address] [place] [address] PCP - General Internal Medicine - Primary Care 12/09/20 documented as of this encounter
--- OUTSIDE RECORDS SUMMARY | 2024-02-10 01:17 | XMS_ITS | Encounter Summary ---
Author Organization [facility] Address [address] [place] [address] Care Team Providers Care Title Assistant Name Role Phone Carrington Calderon MD Primary Care Provi anders Reason for Visit * Reason Onset Date Comments No Show 04/02/2022 Encounter Details Date Type Department Care Team (Late st Contact Info) Description 04/02/2022 Telephone [facility] Adult Primary Care [facility] [address] [place], [place] [phone] Carrington Calderon MD 1 [facility] Level [address] [place] [address] No Show Social History Tobacco [...] not leave a message. Also sent a [employer] message to contact the office to reschedule missed appt if she would like. 1st no show letter sent. Patient has had 2 missed no show appointments in last 12 months. 04/01/2022, 12/21/2021 and 09/28/2021. documented in this encounter Plan of Treatment Upcoming Encounters Date Type Department Care Team (Late st Contact Info) Description 02/21/2024 9:45 EDT Office Visit [facility] Adult Primary Care - [address] [address] Carrington Calderon MD [address] [phone] 02/27/2024 8:30 EDT Telemedicine [facility] Sleep Program - [address] [phone] Dwight Colbert [address] [place] [phone] 02/29/2024 10:[address] [facility] Radiology Nuclear Medicine and PET - [address] [phone] 02/29/2024 14:[address] [facility] Radiology Nuclear Medicine and PET - [address] [address] 03/01/2024 8:[address] [facility] Radiology Nuclear Medicine and PET [address] [address] 03/01/2024 9:[address] [facility] Radiology Nuclear Medicine and PET [address] [phone] documented as of this encounter Visit Diagnoses Not on filedocumented in this encounter Care Teams Title Assistant Relationship Specialty Start Date End Date Carrington Calderon MD 1 [facility] Level [address] [place] [phone] PCP - General Internal Medicine - Primary Care 12/09/20 documented as of this encounter
--- OUTSIDE RECORDS SUMMARY | 2024-02-10 01:17 | XMS_ITS | Encounter Summary ---
Author Organization [facility] Address [address] [place] [address] Care Team Providers Care X Ray Technician Name Role Phone Carrington Calderon MD Primary Care Provi anders Encounter Details Date Type Department Care Team (Late st Contact Info) Description 03/14/2023 15:15 EDT Phlebotomy Only [facility] - [address] [address] [facility] Type 2 diabetes mellitus with diabetic polyneuropathy, with long-term current use of insulin ([facility]); Night sweats; Lymphocytosis Social History Tobacco [...] Visit [facility] Adult Primary Care - [address] [phone] Carrington Calderon MD [address] [phone] 02/27/2024 8:30 EDT Telemedicine [facility] Sleep Program - [address] [phone] Dwight Colbert [address] [place] [address] [phone] 02/29/2024 10:30 EDT Appointment [facility] Radiology Nuclear Medicine and PET [address] [phone] 02/29/2024 14:30 EDT Appointment [facility] Radiology Nuclear Medicine and PET [address] [phone] 03/01/2024 8:00 EDT Appointment [facility] Radiology Nuclear Medicine and PET [address] [id number] 03/01/2024 9:30 EDT Appointment [facility] Radiology Nuclear Medicine and PET [address] [phone] documented as of this encounter Procedures Procedure Name Priority Date/Time Associated Diagnosis Comments PATH REVIEW - HEMATOLOGY Routine 03/14/2023 15:19 EDT Night sweats Lymphocytosis DIFFERENTIAL, AUTOMATED MANUAL Today 03/14/2023 15:19 EDT Type 2 diabetes mellitus with diabetic polyneuropathy, with long-term current use of insulin ([facility]) SLIDE REQUEST Routine 03/14/2023 15:19 EDT Night sweats Lymphocytosis COMPLETE BLOOD COUNT AND DIFFERENTIAL Routine 03/14/2023 15:19 EDT Type 2 diabetes mellitus with diabetic polyneuropathy, with long-term current use of insulin ([facility]) HEMOGLOBIN A1C Routine 03/14/2023 15:19 EDT Type 2 diabetes mellitus with diabetic polyneuropathy, with long-term current use of insulin ([facility]) BASIC METABOLIC PANEL (BMP) Routine 03/14/2023 15:19 EDT Type 2 diabetes mellitus with diabetic polyneuropathy, with long-term current use of insulin ([facility]) documented in this encounter Results * [...] and giant forms noted. 03/16/2023 12:25 EDT [facility] Blood VENOUS BLOOD / Unknown Venipuncture / Unknown 03/14/2023 15:19 EDT 03/16/2023 11:05 EDT Narrative [facility] - 03/16/2023 12:25 [...] Carrington Calderon MD HEMATOLOGY & PF4 ORDERABLES [facility] [address] [place] [address] * (ABNORMAL) DIFFERENTIAL, AUTOMATED MANUAL (03/14/2023 15:19 EDT) % Neutrophils 48.7 % 03/14/2023 17:23 [facility] % Lymphocytes 44.3 % 03/14/2023 17:23 [facility] % Monocytes 4.4 % 03/14/2023 17:23 [facility] % Eosinophils 1.7 % 03/14/2023 17:23 [facility] % Basophils 0.9 % 03/14/2023 17:23 [facility] Absolute Neutrophils 8.80 2.20 - 8.85 K/cmm 03/14/2023 17:23 [facility] Absolute Lymphocytes 8.01(H) 1.09 - 3.30 K/cmm 03/14/2023 17:23 [facility] Absolute Monocytes 0.80 0.10 - 0.80 K/cmm 03/14/2023 17:23 [facility] Absolute Eosinophils 0.31 0.03 - 0.61 K/cmm 03/14/2023 17:23 [facility] ABS Basophils 0.16(H) 0.01 - 0.11 K/cmm 03/14/2023 17:23 [facility] Smudge Cells 03/14/2023 17:23 [facility] Comment:present Type of Differential: Manual 03/14/2023 17:23 [facility] Blood VENOUS BLOOD / Unknown Venipuncture / Unknown 03/14/2023 15:19 EDT 03/14/2023 15:19 EDT Carrington Calderon MD HEMATOLOGY & PF4 ORDERABLES Performing Organization Address City/[facility]/ZIP Co de Phone Number [facility] [address] [place] [address] * (ABNORMAL) COMPLETE BLOOD COUNT AND DIFFERENTIAL (03/14/2023 15:19 EDT) WBC 18.08(H) 4.00 - 12.40 K/cmm 03/14/2023 16:23 EDT [facility] RBC 4.40 3.86 - 5.04 M/cmm 03/14/2023 16:23 EDT [facility] Hemoglobin 14.0 11.6 - 15.2 g/dL 03/14/2023 16:23 T [facility] HCT 40.6 34.9 - 44.4 % 03/14/2023 16:23 [facility] MCV 92 81 - 98 fL 03/14/2023 16:23 T [facility] MCH 31.8 26.7 - 33.3 pg 03/14/2023 16:23 [facility] MCHC 34.5 32.1 - 35.9 g/dL 03/14/2023 16:23 [facility] RDW-CV 12.6 <14.7 % 03/14/2023 16:23 [facility] RDW-SD 42.6 <50.4 fl 03/14/2023 16:23 [facility] PLT 412(H) 141 - 377 K/cmm 03/14/2023 16:23 [facility] MPV 9.3(L) 9.5 - 12.7 fL 03/14/2023 16:23 [facility] Blood VENOUS BLOOD / Unknown Venipuncture / Unknown 03/14/2023 15:19 EDT 03/14/2023 15:19 EDT Carrington Calderon MD PACKAGES & DNA PROBE ORDERABLES [facility] [address] [place] [address] * (ABNORMAL) HEMOGLOBIN A1C (03/14/2023 15:19 EDT) Hemoglobin A1c 8.3(H) <5.7 % 03/14/2023 22:02 EDT [facility] Comment: Glycemic Status References: Normal: ??<5.7% Pre-Diabetes: ??5.7% - 6.4% Diagnostic of Diabetes: ??> or = 6.5% (if confirmed) Est Avg Glucose 192 mg/dL 22:02 EDT [facility] Comment:The eAG represents t he A1c result expressed as average glucose in mg/dL. Blood VENOUS BLOOD / Unknown Venipuncture / Unknown 03/14/2023 15:19 EDT 03/14/2023 15:19 EDT Carrington Calderon MD CHEMISTRY & BLOOD GAS ORDERABLES [facility] [address] [place] [address] * (ABNORMAL) BASIC METABOLIC PANEL (BMP) (03/14/2023 15:19 EDT) Pathologist [facility] Sodium 142 136 - 145 mmol/L 03/14/2023 16:50 EDT [facility] Potassium 4.2 3.5 - 5.0 mmol/L 03/14/2023 16:50 T [facility] Chloride 103 96 - 110 mmol/L 03/14/2023 16:50 T [facility] CO2 Total 25 22 - 32 mmol/L 03/14/2023 16:50 EDT [facility] Anion Gap 14 5 - 14 mmol/L 03/14/2023 16:50 EDT [facility] Glucose 45(LL) 70 - 99 mg/dl 03/14/2023 16:50 EDT [facility] Calcium 9.9 8.5 - 10.5 mg/dL 03/14/2023 16:50 EDT [facility] BUN 11 10 - 26 mg/dL 03/14/2023 16:50 EDT [facility] Creatinine 0.99 0.52 - 1.04 mg/dL 03/14/2023 16:50 EDT [facility] eGFR 75 >60 mL/min/1.73 m2 03/14/2023 16:50 EDT [facility] Blood VENOUS BLOOD / Unknown Venipuncture / Unknown 03/14/2023 15:19 EDT 03/14/2023 15:19 EDT Carrington Calderon MD CHEMISTRY & BLOOD GAS ORDERABLES [facility] [address] [place] [address] documented in this encounter Visit Diagnoses Diagnosis Type 2 diabetes mellitus with diabetic polyneuropathy, with long-term current use of insulin ([facility]) Night sweats Generalized hyperhidrosis Lymphocytosis Lymphocytosis (symptomatic) documented in this encounter Care Teams X Ray Technician Relationship Specialty Start Date End Date Carrington Calderon MD 1 [facility] Level [address] [place] [phone] PCP - General Internal Medicine - Primary Care 12/09/20 documented as of this encounter
--- OUTSIDE RECORDS SUMMARY | 2024-02-10 01:17 | XMS_ITS | Encounter Summary ---
Author Organization [facility] Address [address] [place] [address] Care Team Providers Care Bread Panner Name Role Phone Carrington Calderon MD Primary Care Provi anders Abigail Díaz Unavailable Carmelo Hendrickson Unavailable Unavailable Abigail Díaz Unavailable Reason for Visit * Reason Comments Medications Refill Encounter Details Date Type Department Care Team (Late st Contact Info) Description 01/04/2023 Refill [facility] Adult Primary Care - [address] [address] Carrington Calderon MD 1 [facility] Level 1 [place] [phone] Medications Refill Social History Tobacco Use Types [...] HOURS NEEDED FOR PAIN. DAILY MAX 200MG [facility] [address] [place] [address] Confirmed Pharmacy? Yes Patient out of medication? Unknown Last Refill Date: 11/17/22 Refills left? (explain exceptions requiring early refill) No Recent Visits Date Type Provider Dept 11/17/22 Office Visit Carrington Calderon MD [facility] Adult Prim Care 09/02/22 Office Visit Nimisha Clifton NP [facility] Adult Prim Care 05/20/22 Office Visit Rachel Stein PA-C [facility] Adult Prim Care Showing recent visits within past 540 days with a meds authorizing provider and meeting all other requirements Future Appointments Date Type Provider Dept 03/16/23 Appointment Carrington Calderon MD [facility] Adult Prim Care Showing future appointments within next 150 days with a meds authorizing provider and meeting all other requirements Future appointment: Already Scheduled JOSS WASHINGTON RN 01/05/2023 8:04 documented in this encounter Plan of Treatment Upcoming Encounters Date Type Department Care Team (Late st Contact Info) Description 02/21/2024 9:45 EDT Office Visit [facility] Adult Primary Care - [address] [phone] Carrington Calderon MD [address] [place] [phone] 02/27/2024 8:30 EDT Telemedicine [facility] Sleep Program - [address] [phone] Dwight Colbert [address] [place] [address] [phone] 02/29/2024 10:30 EDT Appointment [facility] Radiology Nuclear Medicine and PET [address] [phone] 02/29/2024 14:30 EDT Appointment [facility] Radiology Nuclear Medicine and PET [address] [phone] 03/01/2024 8:00 EDT Appointment [facility] Radiology Nuclear Medicine and PET [address] [phone] 03/01/2024 9:30 EDT Appointment [facility] Radiology Nuclear Medicine and PET [address] [phone] documented as of this encounter Visit Diagnoses [...] documented as of this encounter Care Teams Bread Panner Relationship Specialty Start Date End Date Carrington Calderon MD 1 [facility] 1 [place] [phone] PCP - General Internal Medicine - Primary Care 12/09/20 Abigail Díaz Applied Exercise Physiologist 04/21/23 01/03/24 Carmelo Hendrickson Coordinator 12/01/23 Abigail Díaz Applied Exercise Physiologist 01/04/24 documented as of this encounter
--- OUTSIDE RECORDS SUMMARY | 2024-02-10 01:17 | XMS_ITS | Encounter Summary ---
Author Organization [facility] Address [address] [place] [address] Care Team Providers Care Loading Unit Tool Setter Name Role Phone Carrington Calderon MD Primary Care Provi anders Reason for Visit * Reason Comments Medications Refill Encounter Details Date Type Department Care Team (Late st Contact Info) Description 10/15/2022 Refill [facility] Adult Primary Care [facility] [address] [place], [place] [address] Carrington Calderon MD 1 [facility] Level 1 [place] [phone] Medications Refill Social History Tobacco [...] [facility] - [address] [phone] Carrington Calderon MD 1 [facility] 1 [place] [phone] 02/27/2024 8:30 EDT Telemedicine [facility] Sleep Program - [address] [phone] Dwight Colbert [address] [place] [address] [phone] 02/29/2024 10:30 EDT [facility] Nuclear [facility] and PET - [address] [address] 02/29/2024 14:30 EDT Appointment [facility] Radiology Nuclear Medicine and PET - [address] [address] 03/01/2024 8:00 EDT Appointment [facility] Radiology Nuclear Medicine and PET - [address] [address] 03/01/2024 9:30 EDT Appointment [facility] Radiology Nuclear Medicine and PET - [address] [address] documented as of this encounter Visit Diagnoses [...] documented as of this encounter Care Teams Loading Unit Tool Setter Relationship Specialty Start Date End Date Carrington Calderon MD 1 [facility] Level [address] [place] [phone] PCP - General Internal Medicine - Primary Care 12/09/20 documented as of this encounter
--- OUTSIDE RECORDS SUMMARY | 2024-02-10 01:17 | XMS_ITS | Encounter Summary ---
Author Organization [facility] Address [address] [place] [address] Care Team Providers Care Organ Pipe Finisher Name Role Phone Carrington Calderon MD Primary Care Provi anders Reason for Visit * Reason Comments Medication Management Encounter Details Date Type Department Care Team (Late st Contact Info) Description 12/17/2022 14:45 EDT Telemedicine [facility] Adult Primary Care - [address] [phone] Carrington Calderon MD 1 [facility] Level [address] [place] [phone] Type 2 diabetes mellitus with diabetic polyneuropathy, with long-term current use of insulin ([facility]) (Primary Dx); Anxiety and depression; Gastroparesis; Catamenial [...] Notes * Carrington Calderon MD - 12/17/2022 1449 EDT Primary Care Video Visit Assessment & Plan Diagnoses and all orders for this visit: Type 2 diabetes mellitus with diabetic polyneuropathy, with long-term current use of insulin ([facility]) ([facility]): No change made today. Will inquire regarding [...] visit. Physical Exam * [email or web address] - 12/17/2022 7205 EDT The concept of ???Telemedicine?? has been [...] Home Patient location state: Visit Location State: [place] The location of the provider: Office Provider location state: Visit Location State: [place] The following people and their roles were present for today's visit: Appointment Provider: Carrington Calderon MD Sopheab Miles documented in this encounter Plan of Treatment Upcoming Encounters Date Type Department Care Team (Late st Contact Info) Description 02/21/2024 9:45 EDT Office Visit [facility] Adult Primary Care - [address] [phone] Carrington Calderon MD [address] [phone] 02/27/2024 8:30 EDT Telemedicine [facility] Sleep Program - [address] 137401 Dwight Colbert [address] [place] [phone] 02/29/2024 10:30 EDT Appointment [facility] Radiology Nuclear Medicine and PET - [address] [phone] 02/29/2024 14:30 EDT [facility] and PET - [address] [id number] 03/01/2024 8:00 EDT Appointment [facility] Radiology Nuclear Medicine and PET - [address] [phone] 03/01/2024 9:30 EDT Appointment [facility] Radiology Nuclear Medicine and PET [address] [phone] documented as of this encounter Visit Diagnoses Diagnosis Type 2 diabetes mellitus with diabetic polyneuropathy, with long-term current use of insulin ([facility])- Primary Anxiety and depression Dysthymic [...] documented as of this encounter Care Teams Organ Pipe Finisher Relationship Specialty Start Date End Date Carrington Calderon MD 1 [facility] 1 [place] [phone] PCP - General Internal Medicine - Primary Care 12/09/20 documented as of this encounter
--- OUTSIDE RECORDS SUMMARY | 2024-02-10 01:17 | XMS_ITS | Encounter Summary ---
Author Organization [facility] Address [address] [place] [address] Care Team Providers Care Wholesale Account Executive Name Role Phone Carrington Calderon MD Primary Care Provi adners Reason for Visit * Reason Onset Date Comments Medications Refill 02/01/2023 Encounter Details Date Type Department Care Team (Late st Contact Info) Description 02/01/2023 Refill [facility] Adult Primary Care [address] [phone] Carrington Calderon MD 1 [facility] Level 1 [place] [phone] Medications Refill Social History Tobacco [facility] [address] [phone] Carrington Calderon MD [address] [phone] 02/27/2024 8:30 EDT Telemedicine [facility] Sleep Program - [address] [phone] Dwight Colbert [address] [place] [address] [phone] 02/29/2024 10:30 EDT [facility] Nuclear Medicine and PET - [address] [address] 02/29/2024 14:30 EDT Appointment [facility] Radiology Nuclear Medicine and PET - [address] [address] 03/01/2024 8:00 EDT Appointment [facility] Radiology Nuclear Medicine and PET - [address] [address] 03/01/2024 9:30 EDT Appointment [facility] Radiology Nuclear Medicine and PET [address] [address] documented as of this encounter Visit Diagnoses [...] documented as of this encounter Care Teams Wholesale Account Executive Relationship Specialty Start Date End Date Carrington Calderon MD 1 [facility] 1 [place] [address] PCP - General Internal Medicine - Primary Care 12/09/20 documented as of this encounter
--- OUTSIDE RECORDS SUMMARY | 2024-02-10 01:17 | XMS_ITS | Encounter Summary ---
Author Organization [facility] Address [address] [place] [address] Care Team Providers Care General Milling Superintendent Name Role Phone Carrington Calderon MD Primary Care Provi anders Reason for Visit * (Routine/Next Available) - Receiving Office to Obtain Authorization Specialty Diagnoses / Procedures Referred By Kit goode Referred To Contact Procedures XR OUTSIDE IMAGES NEURO Imaging, External Referral ID Status Reason Start Date Expiration Date Visits Requested Visits Authorized [id number] Receiving Office to Obtain Authorization 2 1 1 Encounter Details Date Type Department Care Team (Latest Contact Info) Description 03/18/2022 - 03/18/2022 23:59 EDT Hospital Encounter [facility] Secondary Reads [place] Discharge Disposition: Home or [...] use of insulin ([facility]) One Touch Verio Flex meter. 1 Each 12/21/2021 06/27/2023 blood glucose test strips Brand: CantimerStyle Precision Cristo, use as directed if Freestyle [...] use of insulin ([facility]) Inject 1 Kit into the skin every 14 days. 6 Kit 3 01/29/2022 05/21/2022 flash glucose sensor (FREESTYLE VIGNESH 2 SENSOR) kit 1 Device by misc (non-drug; combo route) route continuous. 6 Kit 3 03/15/2022 05/21/2022 gabapentin (NEURONTIN) 300 mg capsuleIndications:Di abetic polyneuropathy associated with type 2 diabetes mellitus ([facility]) Take 300mg in the morning and 900mg [...] polyneuropathy, with long-term current use of insulin ([facility]) Inject 40 Units into the skin at bedtime for 90 days. 36 mL 4 12/21/2021 11/17/2022 insulin pen needles 31G x 5/16Indications:Type 2 diabetes mellitus with hyperglycemia, with long-term current use of insulin ([facility]) Use 1 pen needle as directed 4 times daily. 400 Each 2 09/02/2020 03/16/2023 lancets Brand: Freestyle, use as directed if Freestyle Vignesh censor isnt working 100 Each 3 10/06/2020 03/16/2023 lancets One Touch Delica or other brand compatible with lancing device and covered by patient's insurance. 100 Each 5 10/01/2020 03/16/2023 lidocaine 5 % (LIDODERM) 5 % patchIndications:Grapple Operator gordo midline low back pain without [...] nicotine (NICODERM CQ) 14 mg/24 hr patchIndications:Toba senior accounts payable clerk use Apply one patch only daily on skin without hair. Apply to a different skin site at the same time each day. 42 Patch 01/29/2022 09/02/2022 nicotine (NICODERM CQ) 7 mg/24 hr patchIndications:Toba senior accounts payable clerk use Apply one patch only daily on [...] Info) Description 02/21/2024 9:45 EDT Office Visit [facility] Adult Primary Care - [address] [phone] Carrington Calderon MD [address] [phone] 02/27/2024 8:30 EDT Telemedicine [facility] Sleep Program - [address] [phone] Dwight Colbert [address] [place] [address] [phone] 02/29/2024 10:30 EDT Appointment [facility] Radiology Nuclear Medicine and PET - [address] [phone] 02/29/2024 14:30 EDT Appointment [facility] Radiology Nuclear Medicine and PET [address] [phone] 03/01/2024 8:00 EDT Appointment [facility] Radiology Nuclear Medicine and PET - [address] [phone] 03/01/2024 9:30 EDT Appointment [facility] Radiology Nuclear Medicine and PET [address] [phone] documented as of this encounter Procedures Procedure [...] filedocumented in this encounter Care Teams General Milling Superintendent Relationship Specialty Start Date End Date Carrington Calderon MD 1 [facility] Level 1 [place] [phone] PCP - General Internal Medicine - Primary Care 12/09/20 documented as of this encounter
--- OUTSIDE RECORDS SUMMARY | 2024-02-10 01:17 | XMS_ITS | Encounter Summary ---
Author Organization [facility] Address [address] [place] [address] Care Team Providers Care Wetland Scientist Name Role Phone Carrington Calderon MD Primary Care Provi anders Abigail Díaz Unavailable Carmelo Hendrickson Unavailable Unavailable Abigail Díaz Unavailable Reason for Visit * Reason Onset Date Comments Appointment Related 03/17/2022 Encounter Details Date Type Department Care Team (Late st Contact Info) Description 03/17/2022 Telephone [facility] Endocrinology - [facility] [address] [place] [address] Zulma Cross NP 62 [facility] [address] [place] [address] Appointment Related Social History Tobacco [...] anytime after 06/16/22 Recall Letter Sent thru [employer] Also: Left voicemail to schedule 6 month Follow Up appointment with Dr. Eryn Mims Patient is due anytime after 09/14/22 Recall Letter Sent thru MyChart Please schedule both appointments documented in this encounter Plan of Treatment Upcoming Encounters Date Type Department Care Team (Late st Contact Info) Description 02/21/2024 9:45 EDT Office Visit [facility] Adult Primary Care - [address] [phone] Carrington Calderon MD [address] [phone] 02/27/2024 8:30 EDT Telemedicine [facility] Sleep Program - [address] [phone] Dwight Colbert [address] [place] [address] [phone] 02/29/2024 10:30 EDT Appointment [facility] Radiology Nuclear Medicine and PET - [address] [phone] 02/29/2024 14:30 EDT Appointment [facility] Radiology Nuclear Medicine and PET - [address] [address] 03/01/2024 8:00 EDT Appointment [facility] Radiology Nuclear Medicine and PET [address] [address] 03/01/2024 9:30 EDT Appointment [facility] Radiology Nuclear Medicine and PET - [address] [address] documented as of this encounter Visit Diagnoses Not on filedocumented in this encounter Care Teams Wetland Scientist Relationship Specialty Start Date End Date Carrington Calderon MD 1 [facility] 1 [place] [address] PCP - General Internal Medicine - Primary Care 12/09/20 Abigail Díaz Gizzard Puller 04/21/23 01/03/24 Carmelo Hendrickson Coordinator 12/01/23 Abigail Díaz Gizzard Puller 01/04/24 documented as of this encounter
--- OUTSIDE RECORDS SUMMARY | 2024-02-10 01:17 | XMS_ITS | Encounter Summary ---
Author Organization [facility] Address [address] [place] [address] Care Team Providers Care Tube Skiver Name Role Phone Carrington Calderon MD Primary Care Provi anders Abigail Díaz Unavailable [phone] Carmelo Hendrickson Unavailable Unavailable Abigail Díaz Unavailable Reason for Visit * Reason Onset Date Comments Coordination Of Care 02/17/2023 Encounter Details Date Type Department Care Team (Late st Contact Info) Description 02/17/2023 Telephone [facility] Adult Primary Care - [address] [phone] Carrington Calderon MD [address] [phone] Coordination Of Care Social History Tobacco Use [...] [facility] [address] 900571 Carrington Calderon MD [address] [phone] 02/27/2024 8:30 EDT Telemedicine [facility] Sleep Program - [address] [phone] Dwight Colbert [address] [place] [phone] 02/29/2024 10:30 EDT Appointment [facility] Radiology Nuclear Medicine and PET - [address] [phone] 02/29/2024 14:30 EDT Appointment [facility] Radiology Nuclear Medicine and PET [address] [phone] 03/01/2024 8:00 EDT Appointment [facility] Radiology Nuclear Medicine and PET [address] [phone] 03/01/2024 9:30 EDT Appointment [facility] Radiology Nuclear Medicine and PET [address] 173681 documented as of this encounter Results * (ABNORMAL) COMPLETE BLOOD COUNT AND DIFFERENTIAL (03/14/2023 15:19 EDT) WBC 18.08(H) 4.00 - 12.40 K/cmm 03/14/2023 16:23 [facility] RBC 4.40 3.86 - 5.04 M/cmm 03/14/2023 16:23 [facility] Hemoglobin 14.0 11.6 - 15.2 g/dL 03/14/2023 16:23 [facility] HCT 40.6 34.9 - 44.4 % 03/14/2023 16:23 [facility] MCV 92 81 - 98 fL 03/14/2023 16:23 [facility] MCH 31.8 26.7 - 33.3 pg 03/14/2023 16:23 [facility] MCHC 34.5 32.1 - 35.9 g/dL 03/14/2023 16:23 [facility] RDW-CV 12.6 <14.7 % 03/14/2023 16:23 [facility] RDW-SD 42.6 <50.4 fl 03/14/2023 16:23 [facility] PLT 412(H) 141 - 377 K/cmm 03/14/2023 16:23 [facility] MPV 9.3(L) 9.5 - 12.7 fL 03/14/2023 16:23 [facility] Blood VENOUS BLOOD / Unknown Venipuncture / Unknown 03/14/2023 15:19 EDT 03/14/2023 15:19 EDT Carrington Calderon MD PACKAGES & DNA PROBE ORDERABLES [facility] [address] [place] [address] * (ABNORMAL) HEMOGLOBIN A1C (03/14/2023 15:19 EDT) Pathologist [facility] Hemoglobin A1c 8.3(H) <5.7 % 03/14/2023 22:02 [facility] Comment: Glycemic Status References: Normal: ??<5.7% Pre-Diabetes: ??5.7% - 6.4% Diagnostic of Diabetes: ??> or = 6.5% (if confirmed) Est Avg Glucose 192 mg/dL 22:02 [facility] Comment:The eAG represents t he A1c result expressed as average glucose in mg/dL. Blood VENOUS BLOOD / Unknown Venipuncture / Unknown 03/14/2023 15:19 EDT 03/14/2023 15:19 EDT Carrington Calderon MD CHEMISTRY & BLOOD GAS ORDERABLES Performing Organization Address City/State/[facility] Co de Phone Number [facility] [address] [place] [address] * (ABNORMAL) BASIC METABOLIC PANEL (BMP) (03/14/2023 15:19 EDT) Pathologist [facility] Sodium 142 136 - 145 mmol/L 03/14/2023 16:50 [facility] Potassium 4.2 3.5 - 5.0 mmol/L 03/14/2023 16:50 [facility] Chloride 103 96 - 110 mmol/L 03/14/2023 16:50 [facility] CO2 Total 25 22 - 32 mmol/L 03/14/2023 16:50 [facility] Anion Gap 14 5 - 14 mmol/L 03/14/2023 16:50 [facility] Glucose 45(LL) 70 - 99 mg/dl 03/14/2023 16:50 [facility] Calcium 9.9 8.5 - 10.5 mg/dL 03/14/2023 16:50 [facility] BUN 11 10 - 26 mg/dL 03/14/2023 16:50 [facility] Creatinine 0.99 0.52 - 1.04 mg/dL 03/14/2023 16:50 EDT [facility] eGFR 75 >60 mL/min/1.73 m2 03/14/2023 16:50 EDT [facility] Blood VENOUS BLOOD / Unknown Venipuncture / Unknown 03/14/2023 15:19 EDT 03/14/2023 15:19 EDT Carrington Calderon MD CHEMISTRY & BLOOD GAS ORDERABLES [facility] [address] [place] [address] documented in this encounter Visit Diagnoses Diagnosis Type 2 diabetes mellitus with diabetic polyneuropathy, with long-term current use of insulin ([facility])- Primary documented in this encounter Care Teams Tube Skiver Relationship Specialty Start Date End Date Carrington Calderon MD 1 [facility] 1 [place] [phone] PCP - General Internal Medicine - Primary Care 12/09/20 Abigail Daíz Human Development Professor 04/21/23 01/03/24 Carmelo Hendrickson Coordinator 12/01/23 Abigail Díaz Human Development Professor 01/04/24 documented as of this encounter
--- OUTSIDE RECORDS SUMMARY | 2024-02-10 01:17 | XMS_ITS | Encounter Summary ---
Author Organization [facility] Address [address] [place] [address] Care Team Providers Care Radiology Nurse Name Role Phone Carrington Calderon MD Primary Care Provi anders Reason for Visit * Reason Comments Med Change Request Encounter Details Date Type Department Care Team (Late st Contact Info) Description 09/14/2022 [facility] Adult Primary Care [address] [phone] Nimisha Clifton, GUSTAVO 1 [facility] Level 1 [place] [address] Med Change Request Social History [...] FLEXPEN) 100 unit/mL (3 mL) injectable pen [[id number]] ?? Order Details Dose: 12 Units Route: [facility] [address] [phone] Carrington Calderon MD [address] [phone] 02/27/2024 8:30 EDT Telemedicine [facility] Sleep Program - [address] [phone] Dwight Colbert [address] [place] [address] [phone] 02/29/2024 10:30 EDT Appointment [facility] Radiology Nuclear Medicine and PET - [address] [phone] 02/29/2024 14:30 EDT Appointment [facility] Radiology Nuclear Medicine and PET - [address] [address] 03/01/2024 8:00 EDT Appointment [facility] Radiology Nuclear Medicine and PET - [address] [address] 03/01/2024 9:30 EDT Appointment [facility] Radiology Nuclear Medicine and PET - [address] [address] documented as of this encounter Visit Diagnoses Diagnosis Type 2 diabetes mellitus with diabetic polyneuropathy, with long-term current use of insulin ([facility])- Primary documented in this encounter Care Teams Radiology Nurse Relationship Specialty Start Date End Date Carrington Calderon MD 1 [facility] 1 [place] [address] PCP - General Internal Medicine - Primary Care 12/09/20 documented as of this encounter
--- OUTSIDE RECORDS SUMMARY | 2024-02-10 01:17 | XMS_ITS | Encounter Summary ---
Author Organization [facility] Address [address] [place] [address] Care Team Providers Care Financial Administrator Name Role Phone Carrington Calderon MD Primary Care Provi anders Reason for Visit * Reason Comments Pre-op Exam Toe amputation Encounter Details Date Type Department Care Team (Late st Contact Info) Description 05/20/2022 13:45 EST Office Visit [facility] Adult Primary Care - [place] 1 [place], [place] [phone] Rachel Stein PA-C 1 [facility] Level 1 [place] [phone] Type 2 diabetes mellitus with diabetic polyneuropathy, with long-term current use of insulin ([facility]) (Primary Dx); Preop examination Social History Tobacco [...] Care Everywhere. * Surgery Prep: General Info (British) documented in this encounter Progress Notes * Rachel Stein PA-C - 05/20/2022 5257 EST Subjective: Cristy Luo is a 37 y.o. female who presents to the office today for a preoperative consultation at the request of Dr. Ester Gabriel, who will perform a L third toe [facility] [place] Current Complaints: Failure of IV abx [place] SURGEON: Dr. Prudence Gabriel PROCEDURE: toe amputation [phone] Office name: [facility] Prior h/o of anesthetic complications: denies [...] a referral for therapy. ??? Diabetes ([facility]) A1c 10.3 on 11/28/2019 - poorly controlled ??? Diabetes mellitus, type 2 ([facility]) pt check blood sugars at home- X [...] ??? Neuropathic diabetic ulcer of foot ([facility]) 09/17/2021 ??? Obesity, unspecified ??? Osteomyelitis ([facility]) of left great toe-s/p amputation ??? Peripheral neuropathy 08/12/20- Bilateral feet-Takes Gabapentin- pt just started this med. ??? Productive cough pt currently quitting smoking- clear secretions. ??? Spontaneous miscarriage 09/04/201502/18, 08/19. [facility] Dr[facility] Family History Problem Relation Age [...] daily. 400 Each 2 ??? lancets Brand: [employer]tronics A/S, use as directed if Freestyle Vignesh censor [...] of insulin ([facility]) ([facility]) 2. Preop examination No contraindications to planned [...] [facility] Adult Primary Care - [address] [phone] Carrington Calderon MD [address] [phone] 02/27/2024 8:30 EDT Telemedicine [facility] Sleep Program - [address] [phone] Dwight Colbert [address] [place] [phone] 02/29/2024 10:30 EDT Appointment [facility] Radiology Nuclear Medicine and PET [address] 902181 02/29/2024 14:30 EDT Appointment [facility] Radiology Nuclear Medicine and PET - [address] [phone] 03/01/2024 8:00 EDT Appointment [facility] Radiology Nuclear Medicine and PET [address] 242191 03/01/2024 9:30 EDT Appointment [facility] Radiology Nuclear Medicine and PET [address] [phone] documented as of this encounter Procedures Procedure Name Priority Date/Time Associated Diagnosis Comments ECG REPORT - SCANNED 05/21/2022 11:24 EST ECG REPORT - SCANNED 05/21/2022 11:24 EST EKG 12-LEAD Routine 05/20/2022 14:39 EST Type 2 diabetes mellitus with diabetic polyneuropathy, with long-term current use of insulin ([facility]) Preop examination documented in this encounter Results * ECG REPORT - SCANNED (05/21/2022 11:24 EST) 05/21/2022 11:2 4 EST Scan 2 Production Administrative Assistant PROCEDURE/MINOR BRAULIO GICAL ORDERABLES * ECG REPORT - SCANNED (05/21/2022 11:24 EST) 05/21/2022 11:2 4 EST Scan 2 Production Administrative Assistant PROCEDURE/MINOR BRAULIO GICAL ORDERABLES * EKG 12-LEAD (05/20/2022 14:39 EST) 05/20/2022 14:3 9 EST Narrative [facility] EKG - 05/20/2022 14:56 EST ? PC Site ? Test Date: ?2022-05-20 Pat Name: ? CRISTY LUO ?Department: ?? [facility] ? Room: ? Gender: ? Female ? It Audit Manager: ?? [id number] : ?1985 ? Requested By: GARRISON KIRBY Order Number: [id number] ? Reading MD: ?? Rachel Stein PA- C ? Measurements Intervals ?[place] ? Rate: ? 114 ?P: ?57 SC: ? 141 ?QRS: ?17 QRSD: ? 88 [...] Date: 2022-05-20 Pat Name: CRISTY LUO Department: [facility] Room: Gender: Female It Audit Manager: [id number] : 1985 Requested By: GARRISON KIRBY Order Number: [id number] Reading MD: Rachel Colon Measurements Intervals [place] Rate: 114 P: 57 SC: 141 QRS: 17 QRSD: 88 T: 28 [...] HERNANDEZ. Rachel Stein PA-C CARDIAC ECG ORDERA [facility] Organization Address City/State/ZIP Co de Phone Number [facility] EKG documented in this encounter Visit Diagnoses Diagnosis Type 2 diabetes mellitus with diabetic polyneuropathy, with long-term current use of insulin ([facility])- Primary Preop examination Preoperative examination, unspecified documented [...] of insulin ([facility]) Inject 1 Kit into the skin every [...] as of this encounter Care Teams Financial Administrator Relationship Specialty Start Date End Date Carrington Calderon MD 1 [facility] 1 [place] [address] PCP - General Internal Medicine - Primary Care 12/09/20 documented as of this encounter
--- OUTSIDE RECORDS SUMMARY | 2024-02-10 01:17 | XMS_ITS | Encounter Summary ---
Author Organization [facility] Address [address] [place] [address] Care Team Providers Care Supervisor Paint Department Name Role Phone Carrington Calderon MD Primary Care Provi anders Abigail Díaz Unavailable [phone] Carmelo Hendrickson Unavailable Unavailable Abigail Díaz Unavailable [phone] Reason for Visit * Reason Onset Date Comments Appointment Related 03/30/2022 Encounter Details Date Type Department Care Team (Late st Contact Info) Description 03/30/2022 Telephone [facility] Endocrinology - [address] [address] Lizette Veloz RPH Appointment Related [...] 1317 EDT ----- Message from Lizette Veloz [facility] sent at 03/16/2022 14:47 EDT ----- Dr. [...] [facility] Adult Primary Care - [address] [address] Carrington Calderon MD [address] [phone] 02/27/2024 8:30 EDT Telemedicine [facility] Sleep Program - [address] [address] Dwight Colbert [address] [place] [address] [phone] 02/29/2024 10:[address] [facility] Radiology Nuclear Medicine and PET [address] [phone] 02/29/2024 14:[address] [facility] Radiology Nuclear Medicine and PET [address] [address] 03/01/2024 8:[address] [facility] Radiology Nuclear Medicine and PET [address] 939231 03/01/2024 9:[address] [facility] Radiology Nuclear Medicine and [address] [phone] documented as of this encounter Visit Diagnoses Not on filedocumented in this encounter Care Teams Supervisor Paint Department Relationship Specialty Start Date End Date Carrington Calderon MD [address] [place] [phone] PCP - General Internal Medicine - Primary Care 12/09/20 Abigail Díaz Blood And Plasma Laboratory Assistant 04/21/23 01/03/24 Carmelo Hendrickson Coordinator 12/01/23 Abigail Díaz Blood And Plasma Laboratory Assistant 01/04/24 documented as of this encounter
--- OUTSIDE RECORDS SUMMARY | 2024-02-10 01:17 | XMS_ITS | Encounter Summary ---
Author Organization [facility] Address [address] [place] [address] Care Team Providers Care Implementation Lead Name Role Phone Carrington Calderon MD Primary Care Provi anders Reason for Visit * Reason Comments Med Change Request Encounter Details Date Type Department Care Team (Late st Contact Info) Description 01/06/2023 [facility] Adult Primary Care [facility] 1 [place], [place] 381221 Staci Adhikari MD 1 [facility] Level [address] [place] [phone] Med Change Request Social History Tobacco [...] [facility] Adult Primary Care - [address] [phone] Carrington Calderon MD [address] [phone] 02/27/2024 8:30 EDT Telemedicine [facility] Sleep Program - [address] 433171 Dwight Colbert [address] [place] [address] [phone] 02/29/2024 10:30 EDT Appointment [facility] Radiology Nuclear Medicine and PET - [address] 124561 02/29/2024 14:30 EDT Appointment [facility] Radiology Nuclear Medicine and PET - [address] 304071 03/01/2024 8:00 EDT Appointment [facility] Radiology Nuclear Medicine and PET - [address] [id number] 03/01/2024 9:30 EDT Appointment [facility] Radiology Nuclear Medicine and PET - [address] 359251 documented as of this encounter Visit Diagnoses Diagnosis Chronic midline low back pain without sciatica- Primary documented in this encounter Care Teams Implementation Lead Relationship Specialty Start Date End Date Carrington Calderon MD 1 [facility] Level 1 [place] [phone] PCP - General Internal Medicine - Primary Care 12/09/20 documented as of this encounter
--- OUTSIDE RECORDS SUMMARY | 2024-02-10 01:17 | XMS_ITS | Encounter Summary ---
Author Organization [facility] Address [address] [place] [address] Care Team Providers Care Wood Floor Refinisher Name Role Phone Carrington Calderon MD Primary Care Provi anders Abigail Díaz Unavailable [phone] Carmelo Hendrickson Unavailable Unavailable Abigail Díaz Unavailable Encounter Details Date Type Department Care Team (Late st Contact Info) Description 10/27/2022 Lab Requisition [facility] Pathology & Laboratory Medicine - [address] [address] Dale Collier MD [address] [place] [address] [address] [place], [place] 8[address] Nausea; Vomiting, unspecified Social History Tobacco Use [...] [facility] - [address] [phone] Carrington Calderon MD [address] [phone] 02/27/2024 8:30 EDT Telemedicine [facility] Sleep Program - [address] [phone] Dwight Colbert [address] [place] [address] [phone] 02/29/2024 10:30 EDT Appointment [facility] Radiology Nuclear Medicine and PET [address] [phone] 02/29/2024 14:30 EDT Appointment [facility] Radiology Nuclear Medicine and PET - [address] [phone] 03/01/2024 8:00 EDT Appointment [facility] Radiology Nuclear Medicine and PET [address] [phone] 03/01/2024 9:30 EDT Appointment [facility] Radiology Nuclear Medicine and PET [address] [phone] documented as of this encounter Procedures Procedure [...] explore management options, if applicable. 11/02/2022 17:09 [facility] Final Diagnosis A. [...] fragments identified. - See comment. 11/02/2022 17:09 [facility] Diagnosis Comment Residential Energy Auditor slides of this case were reviewed at the gastrointestinal/[facility] intradepartmental consultation conference. (, KT, RW) 11/02/2022 17:09 [facility] Attestation By the signature below, the attending physician certifies that they have 1) personally conducted a gross and/or microscopic examination of the described specimen(s), and/or personally interpreted the results of laboratory testing of the described specimen(s), and 2) personally rendered or confirmed the above diagnosis. 11/02/2022 17:09 [facility] at 1709 Clinical History Nausea and vomiting, history of gastroparesis; duodenitis, esophagitis 11/02/2022 17:09 [facility] Gross Description A. [...] EUNICE GEE(ASCP) 10/27/2022 18:08 11/02/2022 17:09 EDT [facility] Performing Lab [facility] 11/02/2022 17:09 EDT [facility] Scanned Images 11/02/2022 17:09 EDT [facility] Tissue ENTIRE ESOPHAGUS / Unknown 10/27/2022 11:15 EDT 10/27/2022 16:58 EDT Tissue specimen (specimen) STOMACH STRUCTURE / Unknown 10/27/2022 11:15 EDT 10/27/2022 16:58 EDT Tissue specimen (specimen) ESOPHAGEAL STRUCTURE / Unknown 10/27/2022 11:15 EDT 10/27/2022 16:58 EDT Dale Collier MD PATHOLOGY ORDERA DON[facility] [address] [place] [address] documented in this encounter Visit Diagnoses Diagnosis Nausea Nausea alone Vomiting, unspecified documented in this encounter Care Teams Wood Floor Refinisher Relationship Specialty Start Date End Date Carrington Calderon MD 1 [facility] 1 [place] [phone] PCP - General Internal Medicine - Primary Care 12/09/20 Abigail Díaz Music Education Director 04/21/23 01/03/24 Carmelo Hendrickson Coordinator 12/01/23 Abigail Díaz Music Education Director 01/04/24 documented as of this encounter
--- OUTSIDE RECORDS SUMMARY | 2024-02-10 01:17 | XMS_ITS | Encounter Summary ---
Author Organization [facility] Address [address] [place] [address] Care Team Providers Care Cargoman Name Role Phone Carrington Calderon MD Primary Care Provi anders Reason for Visit * Reason Onset Date Comments Results 03/30/2022 Encounter Details Date Type Department Care Team (Late st Contact Info) Description 03/30/2022 Telephone [facility] Adult Primary Care [address] [phone] Carrington Calderon MD 1 [facility] Level [address] [place] [phone] Results Social History Tobacco Use Types [...] that her lumbar spine x-ray done at [facility] shows some mild arthritis throughout the lower [...] [facility] Adult Primary Care - [address] [address] Carrington Calderon MD [address] [place] [phone] 02/27/2024 8:30 EDT Telemedicine [facility] Sleep Program - [address] [address] ColbertDwight garner [address] [place] [address] 02/29/2024 10:30 EDT Appointment [facility] Radiology Nuclear Medicine and PET [address] 747201 02/29/2024 14:30 EDT Appointment [facility] Radiology Nuclear Medicine and PET [address] 925051 03/01/2024 8:00 EDT Appointment [facility] Radiology Nuclear Medicine and PET [address] 717991 03/01/2024 9:30 EDT Appointment [facility] Radiology Nuclear Medicine and PET [address] [phone] documented as of this encounter Visit Diagnoses Not on filedocumented in this encounter Care Teams Cargoman Relationship Specialty Start Date End Date Carrington Calderon MD [address] [place] [phone] PCP - General Internal Medicine - Primary Care 12/09/20 documented as of this encounter
--- OUTSIDE RECORDS SUMMARY | 2024-02-10 01:17 | XMS_ITS | Encounter Summary ---
Author Organization [facility] Address [address] [place] [address] Care Team Providers Care Joss House Keeper Name Role Phone Carrington Calderon MD Primary Care Provi anders Reason for Visit * Reason Comments Med Change Request Encounter Details Date Type Department Care Team (Late st Contact Info) Description 12/20/2022 Refill [facility] Adult Primary Care [facility] 1 [place], [place] [address] Carrington Calderon MD 1 [facility] Level 1 [place] [phone] Med Change Request Social History [...] Date Record ed How often does anyone, uadrey waldron family, hit, punch or physically hurt [...] 1215 EDT prochlorperazine (COMPAZINE) 25 mg suppository [[id number]] ?? Order Details Dose: 25 mg Route: [...] - [facility] Adult Primary Care - [address] 526131 Carrington Calderon MD 1 [facility] 1 [place] [phone] 02/27/2024 8:30 EDT Telemedicine [facility] Sleep Program - [address] 655111 Dwight Colbert [address] [place] [address] [phone] 02/29/2024 10:30 EDT Appointment [facility] Radiology Nuclear Medicine and PET - [address] [phone] 02/29/2024 14:30 EDT Appointment [facility] Radiology Nuclear Medicine and PET - [address] [address] 03/01/2024 8:00 EDT Appointment [facility] Radiology Nuclear Medicine and PET - [address] [address] 03/01/2024 9:30 EDT Appointment [facility] Radiology Nuclear Medicine and PET - [address] [phone] documented as of this encounter Visit Diagnoses Diagnosis Cyclic vomiting syndrome- Primary Persistent vomiting documented in this encounter Care Teams Joss House Keeper Relationship Specialty Start Date End Date Carrington Calderon MD 1 [facility] 1 [place] [address] PCP - General Internal Medicine - Primary Care 12/09/20 documented as of this encounter
--- OUTSIDE RECORDS SUMMARY | 2024-02-10 01:17 | XMS_ITS | Encounter Summary ---
Author Organization [facility] Address [address] [place] [address] Care Team Providers Care Shift Production Associate Name Role Phone Carrington Calderon MD Primary Care Provi anders Reason for Visit * Reason Onset Date Comments Prior Auth, Medication 09/04/2022 Encounter Details Date Type Department Care Team (Late st Contact Info) Description 09/04/2022 Telephone [facility] Adult Primary Care [address] 040481 Carrington Calderon MD 1 [facility] Level [address] [place] [phone] Prior Auth, Medication Social History Tobacco [...] Q54A Group name: [employer] BIN: [id number] PCN: PA has been completed via ePa Awaiting reply documented in this encounter Plan of Treatment Upcoming Encounters Date Type Department Care Team (Late st Contact Info) Description 02/21/2024 9:45 EDT Office Visit [facility] Adult Primary Care - [address] [phone] Carrington Calderon MD [address] [place] [phone] 02/27/2024 8:30 EDT Telemedicine [facility] Sleep Program - [address] 946991 Dwight Colbert [address] [place], [place] [address] 02/29/2024 10:30 EDT [facility]ment [facility] Rad[facility] Nuclear Medicine and PET - [address] 077101 02/29/2024 14:30 EDT Appointment [facility] Radiology Nuclear Medicine and PET - [address] [phone] 03/01/2024 8:[address] [facility] Radiology Nuclear Medicine and PET - [address] 388461 03/01/2024 9:30 EDT Appointment [facility] Radiology Nuclear Medicine and PET - [address] 035881 documented as of this encounter Visit Diagnoses Not on filedocumented in this encounter Care Teams Shift Production Associate Relationship Specialty Start Date End Date Carrington Calderon MD 1 [facility] Level 1 [place] [address] PCP - General Internal Medicine - Primary Care 12/09/20 documented as of this encounter
--- OUTSIDE RECORDS SUMMARY | 2024-02-10 01:17 | XMS_ITS | Encounter Summary ---
Author Organization [facility] Address [address] [place] [address] Care Team Providers Care Customer Solutions Representative Name Role Phone Carrington Calderon MD Primary Care Provi anders Abigail Díaz Unavailable [phone] Carmelo Hendrickson Unavailable Unavailable Abigail Díaz Unavailable Encounter Details Date Type Department Care Team (Late st Contact Info) Description 09/13/2022 Lab Requisition [facility] Pathology & Laboratory Medicine - [address] [address] Ester Gabriel [address] [place] [phone] Encounter for other general examination [...] [facility] Adult Primary Care - [address] [phone] Carrington Calderon MD [address] [phone] 02/27/2024 8:30 EDT Telemedicine [facility] Sleep Program - [address] 540231 Dwight Colbert [address] [place] [address] [phone] 02/29/2024 10:30 EDT Appointment [facility] Radiology Nuclear Medicine and PET [address] 158321 02/29/2024 14:30 EDT Appointment [facility] Radiology Nuclear Medicine and PET [address] 667671 03/01/2024 8:00 EDT Appointment [facility] Radiology Nuclear Medicine and PET [address] [phone] 03/01/2024 9:30 EDT Appointment [facility] Radiology Nuclear Medicine and PET [address] [phone] documented as of this encounter Procedures Procedure [...] explore management options, if applicable. 09/20/2022 10:01 [facility] Final Diagnosis A. TOE, LEFT 2ND, AMPUTATION: - Acute osteomyelitis. - Disarticulated joint margin negative for acute osteomyelitis. - Skin with ulceration, cellulitis and dermal fibrosis. 09/20/2022 10:01 [facility] Attestation By the signature below, the attending physician certifies that they have 1) personally conducted a gross and/or microscopic examination of the described specimen(s), and/or personally interpreted the results of laboratory testing of the described specimen(s), and 2) personally rendered or confirmed the above diagnosis. 09/20/2022 10:01 [facility] at 1001 Clinical History Osteomyelitis 09/20/2022 10:01 [facility] Gross Description A. Received [...] the resection margin is without gross lesions. Call Circuit Worker sections are submitted following acid decalcification as follows: BLOCK SHIELDS A1- perpendicular sections ulceration to include nearest skin and soft tissue margin A2- bone margin EUNICE RILEY(ASCP) 09/13/2022 13:00 09/20/2022 10:01 [facility] Performing Lab [facility] 04 / 10:01 EDT [facility] Scanned Images 09/20/2022 10:01 EDT [facility] Tissue TRAUMATIC AMPUTATION OF UPPER LIMB / Unknown 09/10/2022 9:17 EDT 09/13/2022 8:56 EDT Ester S Harvey PATHOLOGY ORDERABLES [facility] [address] [place] [address] documented in this encounter Visit Diagnoses Diagnosis Encounter for other general examination documented in this encounter Care Teams Customer Solutions Representative Relationship Specialty Start Date End Date Carrington Calderon MD [address] [phone] PCP - General Internal Medicine - Primary Care 12/09/20 Abigail Díaz Analysis Director 04/21/23 01/03/24 Carmelo Hendrickson Coordinator 12/01/23 Abigail Díaz Analysis Director 01/04/24 documented as of this encounter
--- OUTSIDE RECORDS SUMMARY | 2024-02-10 01:17 | XMS_ITS | Encounter Summary ---
Author Organization [facility] Address [address] [place] [address] Care Team Providers Care Student Officer Name Role Phone Carrington Calderon MD Primary Care Provi anders Abigail Díaz Unavailable [phone] Carmelo Hendrickson Unavailable Unavailable Abigail Díaz Unavailable Encounter Details Date Type Department Care Team (Late st Contact Info) Description 06/01/2022 Lab Requisition [facility] Pathology & Laboratory Medicine - [address] [address] Ester Gabriel [address] [place] [address] Encounter for other general examination [...] [facility] - [address] [phone] Carrington Calderon MD [address] [phone] 02/27/2024 8:30 EDT Telemedicine [facility] Sleep Program - [address] [phone] Dwight Colbert [address] [place] [address] [phone] 02/29/2024 10:30 EDT Appointment [facility] Radiology Nuclear Medicine and PET [address] [phone] 02/29/2024 14:30 EDT Appointment [facility] Radiology Nuclear Medicine and PET [address] [phone] 03/01/2024 8:00 EDT Appointment [facility] Radiology Nuclear Medicine and PET [address] [phone] 03/01/2024 9:30 EDT Appointment [facility] Radiology Nuclear Medicine and PET [address] [phone] documented as of this encounter Procedures Procedure [...] explore management options, if applicable. 06/15/2022 11:18 [facility] Final Diagnosis A. 3RD TOE, LEFT FOOT, ? DISTAL? , AMPUTATION: - Skin with ulceration and gangrenous necrosis. - Bone with remodeling changes and patchy chronic inflammation. See comment. 06/15/2022 11:18 [facility] Diagnosis Comment Overall, the findings are nonspecific but could be compatible with chronic osteomyelitis in the appropriate clinical setting. The disarticulation margin is grossly unremarkable. Histologic features diagnostic of acute osteomyelitis are not seen in the sales representative groceries sections submitted. 06/15/2022 11:18 [facility] Attestation There was significant resident/fellow involvement in the diagnostic evaluation of this case. By the signature below, the attending physician certifies that they have personally conducted a gross and/or microscopic examination of the described specimens and rendered or confirmed the above diagnosis. 06/15/2022 11:18 [facility] at 1118 Clinical History Osteomyelitis 06/15/2022 11:18 [facility] Gross Description A. [...] viable. The proximal margin is inked blue. Drug Coordinator sections are submitted following acid decalcification as follows: BLOCK SHIELDS A1- bone underlying eschar A2- proximal soft tissue margin Carrington Bravo MD 06/01/2022 15:00 06/15/2022 11:18 EST [facility] Resident/Cash w: Carrington Bravo MD 06/15/2022 11:18 EST [facility] Performing Lab [facility] 11:18 EST [facility] Scanned Images 06/15/2022 11:18 EST [facility] Tissue TRAUMATIC AMPUTATION OF UPPER LIMB / Unknown 05/28/2022 7:50 EST 06/01/2022 8:27 EST Ester Tirado Gabriel PATHOLOGY ORDERABLES Performing Organization Address City/State/[facility] Co de Phone Number [facility] [address] [place] [address] documented in this encounter Visit Diagnoses Diagnosis Encounter for other general examination documented in this encounter Care Teams Student Officer Relationship Specialty Start Date End Date Carrington Calderon MD 1 [facility] 1 [place] [address] PCP - General Internal Medicine - Primary Care 12/09/20 Abigail Díaz Compliance Associate 04/21/23 01/03/24 Carmelo Hendrickson Coordinator 12/01/23 Abigail Díaz Compliance Associate 01/04/24 documented as of this encounter
--- OUTSIDE RECORDS SUMMARY | 2024-02-10 01:18 | XMS_ITS | Encounter Summary ---
Author Organization [facility] Address [address] [place] [address] Care Team Providers Care Pricing Associate Name Role Phone Carrington Calderon MD Primary Care Provi anders Reason for Visit * Reason Onset Date Comments Medication Problem 01/14/2022 Encounter Details Date Type Department Care Team (Late st Contact Info) Description 01/14/2022 Telephone [facility] Adult Primary Care [facility] 1 [place], [place] 768591 Carrington Calderon MD 1 [facility] Level 1 [place] [address] Medication Problem Social History Tobacco [...] [facility] Adult Primary Care - [address] [phone] Carrington Calderon MD [address] [phone] 02/27/2024 8:30 EDT Telemedicine [facility] Sleep Program - [address] 457281 Dwight Colbert [address] [place] [address] [phone] 02/29/2024 10:30 EDT Appointment [facility] Radiology Nuclear Medicine and PET - [address] [phone] 02/29/2024 14:30 EDT Appointment [facility] Radiology Nuclear Medicine and PET - [address] [address] 03/01/2024 8:00 EDT Appointment [facility] Radiology Nuclear Medicine and PET [address] [address] 03/01/2024 9:30 EDT Appointment [facility] Radiology Nuclear Medicine and PET - [address] 662141 documented as of this encounter Visit Diagnoses Not on filedocumented in this encounter Care Teams Pricing Associate Relationship Specialty Start Date End Date Carrington Calderon MD 1 [facility] Level 1 [place] [address] PCP - General Internal Medicine - Primary Care 12/09/20 documented as of this encounter
--- OUTSIDE RECORDS SUMMARY | 2024-02-10 01:18 | XMS_ITS | Encounter Summary ---
Author Organization [facility] Address [address] [place] [address] Care Team Providers Care Learning Program Manager Name Role Phone Carrington Calderon MD Primary Care Provi anders Encounter Details Date Type Department Care Team (Late st Contact Info) Description 01/13/2022 Patient Outreach [facility] Adult Primary Care - [place] 1 [place], [place] [address]37[address] Amrita Asencio Social History Tobacco Use Types [...] Amrita Asencio - 01/13/2022 1537 EDT [employer] Truck Leasing Manager Care Coordination Truck Leasing Manager spoke with Stella on phone in order [...] 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 PLAN: continuity manager reviewed current mental health resources with [...] [facility] Adult Primary Care - [address] [address] Carrington Calderon MD [address] [place] [phone] 02/27/2024 8:30 EDT Telemedicine [facility] Sleep Program - [address] [address] Dwight Colbert [address] [place] [address] 02/29/2024 10:30 EDT Appointment [facility] Radiology Nuclear Medicine and PET [address] [phone] 02/29/2024 14:30 EDT Appointment [facility] Radiology Nuclear Medicine and PET [address] 905401 03/01/2024 8:00 EDT Appointment [facility] Radiology Nuclear Medicine and PET [address] 747621 03/01/2024 9:30 EDT Appointment [facility] Radiology Nuclear Medicine and PET [address] [address] documented as of this encounter Visit Diagnoses Not on filedocumented in this encounter Care Teams Learning Program Manager Relationship Specialty Start Date End Date Carrington Calderon MD [address] [place] [phone] PCP - General Internal Medicine - Primary Care 12/09/20 documented as of this encounter
--- OUTSIDE RECORDS SUMMARY | 2024-02-10 01:18 | XMS_ITS | Encounter Summary ---
Author Organization [facility] Address [address] [place] [address] Care Team Providers Care Curtain Fitter Name Role Phone Carrington Calderon MD Primary Care Provi anders Encounter Details Date Type Department Care Team (Late st Contact Info) Description 12/04/2021 Orders Only [facility] Adult Primary Care - [place] 1 [place], [place] [address] Carrington Calderon MD 1 [facility] Level 1 [place] [address] Social History Tobacco Use Types [...] [facility] Primary [facility] - [place] 1 [place], [place] 352151 Carrington Calderno MD 1 [facility] Level 1 [place] [phone] 02/27/2024 8:30 EDT Telemedicine [facility] Sleep Program - [address] [address] Dwight Colbert [address] [place] [address] 02/29/2024 10:30 EDT Appointment [facility] Radiology Nuclear Medicine and PET [address] [address] 02/29/2024 14:30 EDT Appointment [facility] Radiology Nuclear Medicine and PET [address] 892171 03/01/2024 8:00 EDT Appointment [facility] Radiology Nuclear Medicine and [address] [phone] 03/01/2024 9:30 EDT Appointment [facility] Radiology [facility] and [address] [address] documented as of this encounter Visit Diagnoses Not on filedocumented in this encounter Discontinued Medications Medication Sig Discontinue Reason Start Date End Da te traMADol (ULTRAM) 50 mg tablet TAKE 1 TABLET BY MOUTH EVERY 6 HOURS NEEDED FOR PAIN - DAILY MAX 4 TABLETS (200MG) Reorder 10/30/2021 12/04/2021 documented as of this encounter Care Teams Curtain Fitter Relationship Specialty Start Date End Date Carrington Calderon MD 1 [facility] 1 [place] [address] PCP - General Internal Medicine - Primary Care 12/09/20 documented as of this encounter
--- OUTSIDE RECORDS SUMMARY | 2024-02-10 01:18 | XMS_ITS | Encounter Summary ---
Author Organization [facility] Address [address] [place] [address] Care Team Providers Care Counter Dish Carrier Name Role Phone Carrington Calderon MD Primary Care Provi anders Reason for Visit * Reason Comments Medications Refill Encounter Details Date Type Department Care Team (Late st Contact Info) Description 02/26/2022 Refill [facility] Adult Primary Care [facility] 1 [place], [place] 8[address] Tonja Alejandro PA-C [address] [place] [address] [place] [phone] Medications Refill Social History Tobacco Use [...] Never 01/13/2022 How often does anyone, bennynick cihvo family, insult, scream, curse or threaten to [...] Requested: METOCLOPRAMIDE HCI 10 MG Preferred Pharmacy: Is patient out of medication? Unknown Last [...] - [facility] Adult Primary Care - [address] 894181 Carrington Calderon MD 1 [facility] 1 [place] [phone] 02/27/2024 8:30 EDT Telemedicine [facility] Sleep Program - [address] [phone] Dwight Colbert [address] [place] [address] [phone] 02/29/2024 10:30 EDT Appointment [facility] Radiology Nuclear Medicine and PET - [address] [phone] 02/29/2024 14:30 EDT Appointment [facility] Radiology Nuclear Medicine and PET [address] [address] 03/01/2024 8:00 EDT Appointment [facility] Radiology Nuclear Medicine and PET [address] [address] 03/01/2024 9:30 EDT Appointment [facility] Radiology Nuclear Medicine and PET [address] [address] documented as of this encounter Visit Diagnoses Not on filedocumented in this encounter Discontinued Medications Medication Sig Discontinue Reason Start Date End Da te metoclopramide HCl (REGLAN) 10 mg tablet Take 1 Tablet by mouth 3 times daily before meals for 90 days. 11/20/2020 03/02/2022 documented as of this encounter Care Teams Counter Dish Carrier Relationship Specialty Start Date End Date Carrington Calderon MD 1 [facility] 1 [place] [address] PCP - General Internal Medicine - Primary Care 12/09/20 documented as of this encounter
--- OUTSIDE RECORDS SUMMARY | 2024-02-10 01:18 | XMS_ITS | Encounter Summary ---
Author Organization [facility] Address [address] [place] [address] Care Team Providers Care Delinquent Tax Collection Assistant Name Role Phone Carrington Calderon MD Primary Care Provi anders Encounter Details Date Type Department Care Team (Late st Contact Info) Description 04/22/2021 Orders Only [facility] Adult Primary Care - [place] 1 [place], [place] [phone] Carrington Calderon MD 1 [facility] Level 1 [place] [address] Type 2 diabetes mellitus with [...] Notes * Carrington Calderon MD - 04/22/2021 1556 EST I think we can skip lipids. [...] [facility] Adult Primary Care [address] [phone] Carrington Calderon MD [address] [place] [address] [phone] 02/27/2024 8:30 EDT Telemedicine [facility] Sleep Program - [address] [phone] Dwight Colbert [address] [place] [address] [phone] 02/29/2024 10:30 EDT Appointment [facility] Radiology Nuclear Medicine and PET - [address] [id number] 02/29/2024 14:30 EDT Appointment [facility] Radiology Nuclear Medicine and PET [address] [phone] 03/01/2024 8:00 EDT Appointment [facility] Radiology Nuclear Medicine and PET [address] [id number] 03/01/2024 9:30 EDT Appointment [facility] Radiology Nuclear Medicine and PET [address] [phone] documented as of this encounter Visit Diagnoses Diagnosis Type 2 diabetes mellitus with hyperosmolarity without coma, with long-term current use of insulin ([facility])- Primary Screening for hepatitis C declined Encounter for hepatitis C screening test for low risk patient documented in this encounter Care Teams Delinquent Tax Collection Assistant Relationship Specialty Start Date End Date Carrington Calderon MD [address] [place] [address] [phone] PCP - General Internal Medicine - Primary Care 12/09/20 documented as of this encounter
--- OUTSIDE RECORDS SUMMARY | 2024-02-10 01:18 | XMS_ITS | Encounter Summary ---
Author Organization [facility] Address [address] [place] [address] Care Team Providers Care Steam Room Attendant Name Role Phone Carrington Calderon MD Primary Care Provi anders Reason for Visit * Reason Comments New Patient Visit Gastroparesis * Consult (Routine/Next Available) - Order Cancelled Specialty Diagnoses / Procedures Referred By Contact Referred To Contact Gastroenterology and Hepatology Diagnoses Gastroparesis Carrington Calderon MD [address] [place] [phone] [facility] [address] [place] [address] Referral ID Status Reason Start Date Expiration Date Visits Requested Visits Authorized [id number] Order Cancelled Specialty Services Required 06/11/2021 1 1 Encounter Details Date Type Department Care Team (Late st Contact Info) Description 10/09/2021 11:20 EDT Office Visit [facility] Gastroenterology - [facility] [address] [employer], [place] [phone] Scott Arzate MD 111 [facility] 5 [place] [address] Gastroparesis (Primary Dx) Social History [...] Visit [facility] Adult Primary Care - [address] 191071 Carrington Calderon MD [address] [phone] 02/27/2024 8:30 EDT Telemedicine [facility] Sleep Program - [address] [phone] Dwight Colbert [address] [place] [address] [phone] 02/29/2024 10:30 EDT Appointment [facility] Radiology Nuclear Medicine and PET - [address] [id number] 02/29/2024 14:30 EDT Appointment [facility] Radiology Nuclear Medicine and PET - [address] [id number] 03/01/2024 8:00 EDT Appointment [facility] Radiology Nuclear Medicine and PET - [address] [id number] 03/01/2024 9:30 EDT Appointment [facility] Radiology Nuclear Medicine and PET - [address] [address] documented as of this encounter Visit Diagnoses Diagnosis Gastroparesis- Primary documented in this encounter Care Teams Steam Room Attendant Relationship Specialty Start Date End Date Carrington Calderon MD 1 [facility] 1 [place] [phone] PCP - General Internal Medicine - Primary Care 12/09/20 documented as of this encounter
--- OUTSIDE RECORDS SUMMARY | 2024-02-10 01:18 | XMS_ITS | Encounter Summary ---
Author Organization [facility] Address [address] [place] [address] Care Team Providers Care Project Asst Name Role Phone Carrington Calderon MD Primary Care Provi anders Reason for Visit * Reason Onset Date Comments Medications Refill 01/11/2022 Encounter Details Date Type Department Care Team (Late st Contact Info) Description 01/11/2022 Refill [facility] Adult Primary Care [address] [phone] Carrington Calderon MD 1 [facility] Level 1 [place] [address] Medications Refill Social History Tobacco [...] [facility] Adult Primary Care - [address] 567501 Carrington Calderon MD [address] [phone] 02/27/2024 8:30 EDT Telemedicine [facility] Sleep Program - [address] 213731 Dwight Colbert [address] [place] [address] [phone] 02/29/2024 10:30 EDT Appointment [facility] Radiology Nuclear Medicine and PET [address] [id number] 02/29/2024 14:30 EDT Appointment [facility] Radiology Nuclear Medicine and PET [address] [id number] 03/01/2024 8:00 EDT Appointment [facility] Radiology Nuclear Medicine and PET [address] [id number] 03/01/2024 9:30 EDT Appointment [facility] Radiology Nuclear Medicine and PET [address] [phone] documented as of this encounter Visit Diagnoses Not on filedocumented in this encounter Discontinued Medications Medication Sig Discontinue Reason Start Date End Da te traMADol (ULTRAM) 50 mg tablet TAKE 1 TABLET BY MOUTH EVERY 6 HOURS NEEDED FOR PAIN - DAILY MAX 4 TABLETS (200MG) Reorder 12/04/2021 01/11/2022 documented as of this encounter Care Teams Project Asst Relationship Specialty Start Date End Date Carrington Calderon MD [address] [place] [address] [phone] PCP - General Internal Medicine - Primary Care 12/09/20 documented as of this encounter
--- OUTSIDE RECORDS SUMMARY | 2024-02-10 01:18 | XMS_ITS | Encounter Summary ---
Author Organization [facility] Address [address] [place] [address] Care Team Providers Care Marriage And Family Therapist Name Role Phone Carrington Calderon MD Primary Care Provi anders Reason for Visit * Reason Onset Date Comments Medications Refill 11/30/2021 Encounter Details Date Type Department Care Team (Late st Contact Info) Description 11/30/2021 Refill [facility] Adult Primary Care [address] [phone] Carrington Calderon MD 1 [facility] Level 1 [place] [address] Medications Refill Social History Tobacco [...] [facility] Adult Primary Care - [address] 628511 Carrington Calderon MD [address] [phone] 02/27/2024 8:30 EDT Telemedicine [facility] Sleep Program - [address] 269951 Dwight Colbert [address] [place] [address] [phone] 02/29/2024 10:30 EDT Appointment [facility] Radiology Nuclear Medicine and PET - [address] [phone] 02/29/2024 14:30 EDT Appointment [facility] Radiology Nuclear Medicine and PET - [address] [address] 03/01/2024 8:00 EDT Appointment [facility] Radiology Nuclear Medicine and PET - [address] [address] 03/01/2024 9:30 EDT Appointment [facility] Radiology Nuclear Medicine and PET - [address] [address] documented as of this encounter Visit Diagnoses Not on filedocumented in this encounter Care Teams Marriage And Family Therapist Relationship Specialty Start Date End Date Carrington Calderon MD 1 [facility] 1 [place] [address] PCP - General Internal Medicine - Primary Care 12/09/20 documented as of this encounter
--- OUTSIDE RECORDS SUMMARY | 2024-02-10 01:18 | XMS_ITS | Encounter Summary ---
Author Organization [facility] Address [address] [place] [address] Care Team Providers Care Cash Application Representative Name Role Phone Carrington Calderon MD Primary Care Provi anders Reason for Visit * Reason Comments Medications Refill Encounter Details Date Type Department Care Team (Late st Contact Info) Description 02/28/2022 Refill [facility] Adult Primary Care [facility] 1 [place], [place] [phone] Kylah Weiner MD 1 [facility] Level 1 [place] [address] Medications Refill Social History Tobacco [...] [facility] Adult Primary Care - [address] [phone] Carrington Calderon MD 1 [facility] 1 [place] [phone] 02/27/2024 8:30 EDT Telemedicine [facility] Sleep Program - [address] 029341 Dwight Colbert [address] [place] [address] [phone] 02/29/2024 10:30 EDT Appointment [facility] Radiology Nuclear Medicine and PET - [address] [phone] 02/29/2024 14:30 EDT Appointment [facility] Radiology Nuclear Medicine and PET - [address] [address] 03/01/2024 8:00 EDT Appointment [facility] Radiology Nuclear Medicine and PET - [address] [address] 03/01/2024 9:30 EDT Appointment [facility] Radiology Nuclear Medicine and PET - [address] [phone] documented as of this encounter Visit Diagnoses Not on filedocumented in this encounter Discontinued Medications Medication Sig Discontinue Reason Start Date End Da te omeprazole (PRILOSEC) 20 mg capsule Take 1 capsule by mouth daily. 01/26/2021 03/02/2022 documented as of this encounter Care Teams Cash Application Representative Relationship Specialty Start Date End Date Carrington Calderon MD 1 [facility] Level 1 [place] [phone] PCP - General Internal Medicine - Primary Care 12/09/20 documented as of this encounter
--- OUTSIDE RECORDS SUMMARY | 2024-02-10 01:18 | XMS_ITS | Encounter Summary ---
Author Organization [facility] Address [address] [place] [address] Care Team Providers Care Core Inspector Name Role Phone Carrington Calderon MD Primary Care Provi anders Reason for Visit * Reason Comments Other Encounter Details Date Type Department Care Team (Late st Contact Info) Description 07/09/2021 [facility] Adult Primary Care [facility] 1 [place], [place] 837731 Carrington Calderon MD 1 [facility] Level 1 [place] [address] Other Social History Tobacco Use [...] Mahan - 07/10/2021 1226 EST Sydnee from [facility] pharmacy calling to requestion some information. 1)She would like to know the associated diagnosis with the tramadol for their records. 2)She is also wondering if provider is aware she is taking tramadol and lorazepam. * Telephone Encounter - Jesi Love RN - 07/10/2021 1122 EST Medication(s) Requested: tramadol Preferred Pharmacy: [facility] Is patient out of medication? Unknown [...] [facility] - [address] [phone] Carrington Calderon MD [address] [phone] 02/27/2024 8:30 EDT Telemedicine [facility] Sleep Program - [address] 017881 Dwight Colbert [address] [place] [address] [phone] 02/29/2024 10:30 EDT Appointment [facility] Radiology Nuclear Medicine and PET - [address] 170881 02/29/2024 14:30 EDT Appointment [facility] Radiology Nuclear Medicine and PET - [address] [phone] 03/01/2024 8:00 EDT Appointment [facility] Radiology Nuclear Medicine and PET - [address] [address] 03/01/2024 9:30 EDT Appointment [facility] Radiology Nuclear Medicine and PET [address] [address] documented as of this encounter Visit Diagnoses Not on filedocumented in this encounter Discontinued Medications Medication Sig Discontinue Reason Start Date End Da te traMADol (ULTRAM) 50 mg tablet Take 1 Tablet by mouth every 6 hours as needed for Pain. Daily Max: 200 mg 06/17/2021 07/10/2021 documented as of this encounter Care Teams Core Inspector Relationship Specialty Start Date End Date Carrington Calderon MD 1 [facility] 1 [place] [address] PCP - General Internal Medicine - Primary Care 12/09/20 documented as of this encounter
--- OUTSIDE RECORDS SUMMARY | 2024-02-10 01:18 | XMS_ITS | Encounter Summary ---
Author Organization [facility] Address [address] [place] [address] Care Team Providers Care Instructor Physical Education Name Role Phone Carrington Calderon MD Primary Care Provi anders Reason for Visit * Reason Onset Date Comments No Show 09/28/2021 Encounter Details Date Type Department Care Team (Late st Contact Info) Description 09/28/2021 Telephone [facility] Adult Primary Care [address] [phone] Carrington Calderon MD 1 [facility] Level 1 [place] [phone] No Show Social History Tobacco [...] [facility] Adult Primary Care - [address] 614551 Carrington Calderon MD [address] [phone] 02/27/2024 8:30 EDT Telemedicine [facility] Sleep Program - [address] 094071 Colbert Dwight [address] [place] [address] [phone] 02/29/2024 10:30 EDT Appointment [facility] Radiology Nuclear Medicine and PET [address] [id number] 02/29/2024 14:30 EDT Appointment [facility] Radiology Nuclear Medicine and PET [address] 361841 03/01/2024 8:00 EDT Appointment [facility] Radiology Nuclear Medicine and PET [address] [phone] 03/01/2024 9:30 EDT Appointment [facility] Radiology Nuclear Medicine and PET [address] 543961 documented as of this encounter Visit Diagnoses Not on filedocumented in this encounter Care Teams Instructor Physical Education Relationship Specialty Start Date End Date Carrington Calderon MD [address] [phone] PCP - General Internal Medicine - Primary Care 12/09/20 documented as of this encounter
--- OUTSIDE RECORDS SUMMARY | 2024-02-10 01:18 | XMS_ITS | Encounter Summary ---
Author Organization [facility] Address [address] [place] [address] Care Team Providers Care School Office Manager Name Role Phone Carrington Calderon MD Primary Care Provi anders Reason for Visit * Reason Comments Medication Management Encounter Details Date Type Department Care Team (Late st Contact Info) Description 06/11/2021 9:45 EST Office Visit [facility] Adult Primary Care - [place] 1 [place], [place] 6[address] Carrington Calderon MD 1 [facility] Level 1 [place] [phone] Type 2 diabetes mellitus with hyperosmolarity without coma, with long-term current use of insulin ([facility]) ([facility]) (Primary Dx); Anxiety; Chronic midline low back pain without sciatica; Anxiety and depression; Gastroparesis; Diabetic polyneuropathy associated with type 2 diabetes mellitus ([facility]) (HCC); Mid back pain Social History [...] emergency department For the diabetes -Down the [employer] rena -If you have trouble using this [...] with long-term current use of insulin (HCC-CMS) ([facility]): By description, it sounds like glucose is responding well to the changes that were made last year. However, she does not have her freestyle mitul readings available today, and we do not have a recent A1c. I recommended getting an A1c as soon as she is able. I have sent an order to [place]. - HEMOGLOBIN A1C Anxiety: Continue lorazepam for [...] of the lumbar spine. Order sent to [place]. - XR LUMBAR SPINE 2-3 VIEWS Anxiety [...] associated with type 2 diabetes mellitus (HCC-CMS) ([facility]): Symptoms persist.Continue gabapentin. - gabapentin [...] was seen in the emergency department in [place] for recurrence ofintractable nausea and vomiting with [...] [facility] Adult Primary Care - [address] 751691 Carrington Calderon MD [address] [phone] 02/27/2024 8:30 EDT Telemedicine [facility] Sleep Program - [address] 021331 Dwight Colbert [address] [place] [address] [phone] 02/29/2024 10:30 EDT Appointment [facility] Radiology Nuclear Medicine and PET - [address] 290461 02/29/2024 14:30 EDT Appointment [facility] Radiology Nuclear Medicine and PET [address] 798021 03/01/2024 8:00 EDT Appointment [facility] Radiology Nuclear Medicine and PET - [address] [phone] 03/01/2024 9:30 EDT Appointment [facility] Radiology Nuclear Medicine and PET [address] [address] documented as of this encounter Visit Diagnoses Diagnosis Type 2 diabetes mellitus with hyperosmolarity without coma, with long-term current use of insulin ([facility])- Primary Anxiety Anxiety state, unspecified Chronic midline low back pain without sciatica Anxiety and depression Dysthymic disorder Gastroparesis Diabetic polyneuropathy associated with type 2 diabetes mellitus ([facility]) Mid back pain Backache, unspecified documented [...] 06/11/2021 added in this encounter Care Teams School Office Manager Relationship Specialty Start Date End Date Carrington Calderon MD 1 [facility] Level 1 [place] [address] PCP - General Internal Medicine - Primary Care 12/09/20 documented as of this encounter
--- OUTSIDE RECORDS SUMMARY | 2024-02-10 01:18 | XMS_ITS | Encounter Summary ---
Author Organization [facility] Address [address] [place] [address] Care Team Providers Care Jeep Driver Name Role Phone Carrington Calderon MD Primary Care Provi anders Reason for Visit * Reason Comments Skin Ulcer * Consult (Routine) - Authorization Not Required Specialty Diagnoses / Procedures Referred By Kit goode Referred To Contact Orthopedic Surgery Diagnoses Diabetic ulcer of right great toe (HCC-CMS) Katiana Adams NP [address] [place] [address] Elza Navarro DPM [address] [place] [phone] Referral ID Status Reason Start Date Expiration Date Visits Requested Visits Authorized [id number] Authorization Not Required 1 1 Encounter Details Date Type Department Care Team (Late Contact Info) Description 09/17/2021 15:00 EDT Office Visit [facility] Foot & Ankle Program - [address] [place] [address] Fadi Barahona NP [address] [place] [address] Neuropathic diabetic ulcer of foot [...] ICD-9-CM 1. Neuropathic diabetic ulcer of foot ([facility]) E11.40 250.60 OFFLOADING SURGICAL SHOE (L3260) E11.621 250.80 L97.509 357.2 707.15 right great toe 2. Type 2 diabetes mellitus with diabetic polyneuropathy, with long-term current use of insulin ([facility]) ([facility]) E11.42 250.60 OFFLOADING SURGICAL SHOE [...] the next morning they went to the [facility] in [place], [place] where she was prescribed antibiotics. She [...] managed by Mary Zafar NP, at the [facility] but, ever since Mary [...] 2020 after an ulcer got infected. Work: [employer] Foot & Ankle Pain Assessment: Pain Orientation : Right Pain Location: Toe (GRT) Numeric Pain Level (Scale 1-10): 0 Pain in another site? : No Past medical history, medications and allergies were noted in [facility]. The patient did not fill out the intake form Patient Active Problem List Diagnosis Date Noted ??? Neuropathic diabetic ulcer of foot ([facility]) 09/17/2021 ??? Chronic midline low back pain without sciatica 11/26/2019 ??? Chronic left ear pain 09/04/2015 ??? Gastroparesis 08/10/2020 ??? Type 2 diabetes mellitus with diabetic polyneuropathy, with long-term current use of insulin ([facility]) ([facility]) 06/05/2020 ??? Family history of [...] for therapy. ??? Diabetes ([facility]) A1c 10.3 on 11/28/2019 - poorly controlled ??? Diabetes mellitus, type 2 ([facility]) pt check blood sugars at [...] occasionally ??? Neuropathic diabetic ulcer of foot ([facility]) 09/17/2021 ??? Obesity, unspecified ??? Osteomyelitis ([facility]) of left great toe-s/p amputation [...] current use of insulin ([facility]) ([facility]) OFFLOADING SURGICAL SHOE (L3260) Other [...] with speech recognition software or keyboard data collector techniques. Minor irregularities or keyboarding misprints may be present documented in this encounter Plan of Treatment Upcoming Encounters Date Type Department Care Team (Late st Contact Info) Description 02/21/2024 9:45 EDT Office Visit [facility] Adult Primary Care - [address] 948991 Carrington Calderon MD [address] [phone] 02/27/2024 8:30 EDT Telemedicine [facility] Sleep Program - [address] 198911 Dwight Colbert [address] [place] [address] [phone] 02/29/2024 10:30 EDT Appointment [facility] Radiology Nuclear Medicine and [address] [phone] 02/29/2024 14:30 EDT Appointment [facility] Radiology Nuclear Medicine and [address] [phone] 03/01/2024 8:00 EDT Appointment [facility] Radiology Nuclear Medicine and PET [address] [phone] 03/01/2024 9:30 EDT Appointment [facility] Radiology Nuclear Medicine and PET [address] [phone] documented as of this encounter Visit Diagnoses [...] 22 documented in this encounter Care Teams Jeep Driver Relationship Specialty Start Date End Date Carrington Calderon MD 1 [facility] 1 [place] [phone] PCP - General Internal Medicine - Primary Care 12/09/20 documented as of this encounter
--- OUTSIDE RECORDS SUMMARY | 2024-02-10 01:18 | XMS_ITS | Encounter Summary ---
Author Organization [facility] Address [address] [place] [address] Care Team Providers Care Turkish Rubber Name Role Phone Carrington Calderon MD Primary Care Provi anders Reason for Visit * Reason Comments Medications Refill Diabetes Encounter Details Date Type Department Care Team (Late st Contact Info) Description 03/27/2021 13:30 EDT Office Visit [facility] Adult Primary Care - [place] [address] [place], [place] [address] Avelino Dowling MD Diabetes 1.5, managed as [...] Avelino Dowling MD - 03/27/[address] [facility] DEPARTMENT OF INTERNAL MEDICINE [facility] PRIMARY [facility] DATE: 03/27/2021 PATIENT NAME: Cristy [...] with long-term current use of insulin (HCC-CMS) ([facility]) ??? Hx of ectopic ??? Admission for sterilization ??? Gastroparesis ??? Intractable vomiting ??? Vomiting Medications Prior to Today's Visit Medication Sig ??? acetaminophen (TYLENOL) 325 mg tablet Take 2 Tabs by mouth every 4 hours as needed for Pain. ??? blood glucose meter One Touch Verio Flex meter. ??? blood glucose test strips Brand: [facility] Prec[facility] Cristo, use as directed if Freestyle [...] Brandon Dowling MD Internal Medicine, PGY-1 Pager: *[phone] or cortex I spent a total of [...] since November and she was only gi sehna 30 days supply will hold off on refilling this since she was not taking this regularly. Catherine Taylor MD 04/03/2021 11:56 documented in this encounter Plan of Treatment Upcoming Encounters Date Type Department Care Team (Late st Contact Info) Description 02/21/2024 9:45 EDT Office Visit [facility] Adult Primary Care - [address] 557671 Carrington Calderon MD [address] [place] [address] 1 [place] [phone] 02/27/2024 8:30 EDT Telemedicine [facility] Sleep Program - [address] 012681 Dwight Colbert [address] [place], [place] [address] 02/29/2024 10:30 EDT Appointment [facility] Radiology Nuclear Medicine and PET - [address] [phone] 02/29/2024 14:30 EDT Appointment [facility] Radiology Nuclear Medicine and PET [address] [address] 03/01/2024 8:00 EDT Appointment [facility] Radiology Nuclear Medicine and PET [address] [phone] 03/01/2024 9:30 EDT Appointment [facility] Radiology Nuclear Medicine and PET [address] [phone] documented as of this encounter Visit Diagnoses Diagnosis Diabetes 1.5, managed as type 2 ([facility])- Primary Type II or unspecified type [...] 06/11/2021 added in this encounter Care Teams Turkish Rubber Relationship Specialty Start Date End Date Carrington Calderon MD 1 [facility] Level 1 [place] [address] PCP - General Internal Medicine - Primary Care 12/09/20 documented as of this encounter
--- OUTSIDE RECORDS SUMMARY | 2024-02-10 01:18 | XMS_ITS | Encounter Summary ---
Author Organization [facility] Address [address] [place] [address] Care Team Providers Care Florist Manager Name Role Phone Carrington Calderon MD Primary Care Provi anders Reason for Visit * (Routine/Next Available) - Receiving Office to Obtain Authorization Specialty Diagnoses / Procedures Referred By Kit goode Referred To Contact Procedures XR OUTSIDE IMAGES MSK Unknown, Provider, Referral ID Status Reason Start Date Expiration Date Visits Requested Visits Authorized [id number] Receiving Office to Obtain Authorization 09/12/2021 1 1 Encounter Details Date Type Department Care Team (Latest Contact Info) Description 09/12/2021 16:35 EDT - 09/12/2021 23:59 EDT Hospital Encounter [facility] Secondary Reads [place] Discharge Disposition: Home [...] polyneuropathy associated with type 2 diabetes mellitus ([facility]) Take 300mg in the morning and 900mg [...] hyperglycemia, with long-term current use of insulin ([facility]) Use 1 pen needle as [...] Visit [facility] Adult Primary Care - [address] 446221 Carrington Calderon MD [address] [place] [address] 1 [place] [address] 02/27/2024 8:30 EDT Telemedicine [facility] Sleep Program - [address] 030941 Dwight Colbert [address] [place] [phone] 02/29/2024 10:30 EDT Appointment [facility] Radiology Nuclear Medicine and PET - [address] [address] 02/29/2024 14:[address] [facility] Radiology Nuclear Medicine and PET - [address] [address] 03/01/2024 8:[address] [facility] Radiology Nuclear Medicine and PET - [address] [address] 03/01/2024 9:[address] [facility] Radiology Nuclear Medicine and PET - [address] [address] documented as of this encounter Procedures Procedure [...] on filedocumented in this encounter Care Teams Florist Manager Relationship Specialty Start Date End Date Carrington Calderon MD 1 [facility] 1 [place] [address] PCP - General Internal Medicine - Primary Care 12/09/20 documented as of this encounter
--- OUTSIDE RECORDS SUMMARY | 2024-02-10 01:18 | XMS_ITS | Encounter Summary ---
Author Organization [facility] Address [address] [place] [address] Care Team Providers Care Adhesive Primer Name Role Phone Carrington Calderon MD Primary Care Provi anders Reason for Visit * Reason Comments Other Encounter Details Date Type Department Care Team (Late st Contact Info) Description 09/13/2021 [facility] Adult Primary Care [facility] 1 [place], [place] [address] Carrington Calderon MD 1 [facility] Level 1 [place] [address] Other Social History Tobacco Use [...] Encounter - Eryn Pack RN - 09/14/2021 0978 EDT traMADol (ULTRAM) 50 mg tablet [[id number]] ?? Order Details Dose, Route, Frequency: As [...] [facility] Adult Primary Care - [address] 159361 Carrington Calderon MD [address] [phone] 02/27/2024 8:30 EDT Telemedicine [facility] Sleep Program - [address] [phone] Dwight Colbert [address] [place] [phone] 02/29/2024 10:30 EDT Appointment [facility] Radiology Nuclear Medicine and PET [address] [phone] 02/29/2024 14:30 EDT Appointment [facility] Radiology Nuclear Medicine and PET [address] [phone] 03/01/2024 8:00 EDT Appointment [facility] Radiology Nuclear Medicine and PET [address] [phone] 03/01/2024 9:30 EDT Appointment [facility] Radiology Nuclear Medicine and PET [address] [phone] documented as of this encounter Visit Diagnoses Not on filedocumented in this encounter Discontinued Medications Medication Sig Discontinue Reason Start Date End Da te traMADol (ULTRAM) 50 mg tablet TAKE 1 TABLET BY MOUTH EVERY 6 HOURS NEEDED FOR PAIN, DAILY MAX: 200MG 08/25/2021 09/20/2021 documented as of this encounter Care Teams Adhesive Primer Relationship Specialty Start Date End Date Carrington Calderon MD 1 [facility] Level 1 [place] [phone] PCP - General Internal Medicine - Primary Care 12/09/20 documented as of this encounter
--- OUTSIDE RECORDS SUMMARY | 2024-02-10 01:18 | XMS_ITS | Encounter Summary ---
Author Organization [facility] Address [address] [place] [address] Care Team Providers Care 4 H Youth Development Specialist Name Role Phone Carrington Calderon MD Primary Care Provi anders Abigail Díaz Unavailable [phone] Carmelo Hendrickson Unavailable Unavailable Abigail Díaz Unavailable Encounter Details Date Type Department Care Team (Late st Contact Info) Description 01/26/2022 Orders Only [facility] Adult Primary Care - [address] [phone] Carrington Calderon MD 1 [facility] Level 1 [place] [address] Type 2 diabetes mellitus with diabetic polyneuropathy, with long-term current use of insulin ([facility] ([facility]) (Primary Dx) Social History Tobacco Use Types [...] [facility] - [address] 828891 Carrington Calderon MD [address] [phone] 02/27/2024 8:30 EDT Telemedicine [facility] Sleep Program - [address] 143741 Dwight Colbert [address] [place] [phone] 02/29/2024 10:30 EDT Appointment [facility] Radiology Nuclear Medicine and PET [address] [phone] 02/29/2024 14:30 EDT Appointment [facility] Radiology Nuclear Medicine and PET [address] [phone] 03/01/2024 8:00 EDT Appointment [facility] Radiology Nuclear Medicine and PET - [address] [address] 03/01/2024 9:30 EDT Appointment [facility] Radiology Nuclear Medicine and PET [address] [address] documented as of this encounter Visit Diagnoses Diagnosis Type 2 diabetes mellitus with diabetic polyneuropathy, with long-term current use of insulin ([facility])- Primary documented in this encounter Care Teams 4 H Youth Development Specialist Relationship Specialty Start Date End Date Carrington Calderon MD 1 [facility] 1 [place] [phone] PCP - General Internal Medicine - Primary Care 12/09/20 Abigail Díaz Parking Ramp Attendant 04/21/23 01/03/24 Carmelo Hendrickson Coordinator 12/01/23 Abigail Díaz Parking Ramp Attendant 01/04/24 documented as of this encounter
--- OUTSIDE RECORDS SUMMARY | 2024-02-10 01:18 | XMS_ITS | Encounter Summary ---
Author Organization [facility] Address [address] [place] [address] Care Team Providers Care Programming Equipment Operator Name Role Phone Carrington Calderon MD Primary Care Provi anders Reason for Visit * Reason Onset Date Comments Medications Refill 06/17/2021 Encounter Details Date Type Department Care Team (Late st Contact Info) Description 06/17/2021 Telephone [facility] Adult Primary Care [address] 717551 Carrington Calderon MD 1 [facility] Level 1 [place] [phone] Medications Refill Social History Tobacco Use Types [...] her appointment. Medication(s) Requested: Tramadol Preferred Pharmacy: [facility] Is patient out of medication? Yes Last Refill Date: 11/04/2020 Last Visit Date with Ordering Provider: 06/11/2021 Next Non-Acute Visit Date Scheduled with Care Team: Yes. Karen Trujillo 06/17/2021 9:28 documented in this encounter Plan of Treatment Upcoming Encounters Date Type Department Care Team (Late st Contact Info) Description 02/21/2024 9:45 EDT Office Visit [facility] Adult Primary Care - [address] 219321 Carrington Calderon MD [address] [phone] 02/27/2024 8:30 EDT Telemedicine [facility] Sleep Program - [address] 122151 Dwight Colbert [address] [place] [address] [phone] 02/29/2024 10:30 EDT Appointment [facility] Radiology Nuclear Medicine and PET - [address] [phone] 02/29/2024 14:30 EDT Appointment [facility] Radiology Nuclear Medicine and PET - [address] 645461 03/01/2024 8:00 EDT Appointment [facility] Radiology Nuclear Medicine and PET - Main [address] [phone] 03/01/2024 9:30 EDT Appointment [facility] Radiology Nuclear Medicine and PET - [address] [address] documented as of this encounter Visit Diagnoses Not on filedocumented in this encounter Discontinued Medications Medication Sig Discontinue Reason Start Date End Da te traMADol (ULTRAM) 50 mg tablet Take 1 Tab by mouth every 6 hours as needed for Pain. Daily Max: 200 mg Reorder 11/04/2020 06/17/2021 documented as of this encounter Care Teams Programming Equipment Operator Relationship Specialty Start Date End Date Carrington Calderon MD 1 [facility] 1 [place] [address] PCP - General Internal Medicine - Primary Care 12/09/20 documented as of this encounter
--- OUTSIDE RECORDS SUMMARY | 2024-02-10 01:18 | XMS_ITS | Encounter Summary ---
Author Organization [facility] Address [address] [place] [address] Care Team Providers Care Merchandise Flow Associate Name Role Phone Carrington Calderon MD Primary Care Provi anders Reason for Visit * Reason Onset Date Comments Prior Auth, Medication 01/29/2022 Encounter Details Date Type Department Care Team (Late st Contact Info) Description 01/29/2022 Telephone [facility] Adult Primary Care [address] 777131 Carrington Calderon MD 1 [facility] Level [address] [place] [phone] Prior Auth, Medication Social History Tobacco [...] Trujillo - 02/26/2022 1518 EDT Call to [facility] to check and see what is going on with the patients sensors at the patientis all out and needs these EDGARD. Per [facility] Azra, when this is ran it states drug therapy is not on file. OV notes and completed form have been faxed to [facility] for approval. * Telephone Encounter - Satinder [...] Free style Nissa 14 day sensor Mejia: [id number] documented in this encounter Plan of Treatment Upcoming Encounters Date Type Department Care Team (Late st Contact Info) Description 02/21/2024 9:45 EDT Office Visit [facility] Adult Primary Care - [address] [phone] Carrington Calderon MD [address] [phone] 02/27/2024 8:30 EDT Telemedicine [facility] Sleep Program - [address] [phone] Dwight Colbert [address] [place] [address] [phone] 02/29/2024 10:30 EDT Appointment [facility] Radiology Nuclear Medicine and [address] [phone] 02/29/2024 14:30 EDT Appointment [facility] Radiology Nuclear Medicine and [address] [phone] 03/01/2024 8:00 EDT Appointment [facility] Radiology Nuclear Medicine and PET [address] [phone] 03/01/2024 9:30 EDT Appointment [facility] Radiology Nuclear Medicine and PET [address] [address] documented as of this encounter Visit Diagnoses Not on filedocumented in this encounter Care Teams Merchandise Flow Associate Relationship Specialty Start Date End Date Carrington Calderon MD [address] [place] [phone] PCP - General Internal Medicine - Primary Care 12/09/20 documented as of this encounter
--- OUTSIDE RECORDS SUMMARY | 2024-02-10 01:18 | XMS_ITS | Encounter Summary ---
Author Organization [facility] Address [address] [place] [address] Care Team Providers Care Edging Machine Catcher Name Role Phone Carrington Calderon MD Primary Care Provi anders Reason for Visit * Reason Onset Date Comments Medications Refill 10/30/2021 tramadol / lo razepam Encounter Details Date Type Department Care Team (Late st Contact Info) Description 10/30/2021 Refill [facility] Adult Primary Care - [address] [phone] Carrington Calderon MD 1 [facility] Level 1 [place] [address] Medications Refill (tramadol / lorazepam) [...] Visit [facility] Adult Primary Care - [address] 808121 Carrington Calderon MD [address] [place] [phone] 02/27/2024 8:30 EDT Telemedicine [facility] Sleep Program - [address] 024811 Dwight Colbert [address] [place] [address] [phone] 02/29/2024 10:30 EDT Appointment [facility] Radiology Nuclear Medicine and PET [address] [phone] 02/29/2024 14:30 EDT Appointment [facility] Radiology Nuclear Medicine and PET [address] [phone] 03/01/2024 8:00 EDT Appointment [facility] Radiology Nuclear Medicine and PET [address] [phone] 03/01/2024 9:30 EDT Appointment [facility] Radiology Nuclear Medicine and PET [address] [phone] documented as of this encounter Visit Diagnoses [...] documented as of this encounter Care Teams Edging Machine Catcher Relationship Specialty Start Date End Date Carrington Calderon MD [address] [facility] 1 [place] [address] PCP - General Internal Medicine - Primary Care 12/09/20 documented as of this encounter
--- OUTSIDE RECORDS SUMMARY | 2024-02-10 01:18 | XMS_ITS | Encounter Summary ---
Author Organization [facility] Address [address] [place] [address] Care Team Providers Care Hydrogeologist Name Role Phone Carrington Calderon MD Primary Care Provi anders Reason for Visit * Reason Onset Date Comments Medications Refill 08/25/2021 Encounter Details Date Type Department Care Team (Late st Contact Info) Description 08/25/2021 Refill [facility] Adult Primary Care [address] [phone] Carrington Calderon MD 1 [facility] Level 1 [place] [phone] Medications Refill Social History Tobacco Use Types [...] [facility] Adult Primary Care - [address] 088011 Carrington Calderon MD [address] [place] [phone] 02/27/2024 8:30 EDT Telemedicine [facility] Sleep Program - [address] 849721 Dwight Colbert [address] [place] [phone] 02/29/2024 10:30 EDT Appointment [facility] Radiology Nuclear Medicine and PET [address] [phone] 02/29/2024 14:30 EDT Appointment [facility] Radiology Nuclear Medicine and PET [address] [phone] 03/01/2024 8:00 EDT Appointment [facility] Radiology Nuclear Medicine and PET - [address] [phone] 03/01/2024 9:30 EDT Appointment [facility] Radiology Nuclear Medicine and PET [address] [phone] documented as of this encounter Visit Diagnoses [...] documented as of this encounter Care Teams Hydrogeologist Relationship Specialty Start Date End Date Carrington Calderon MD 1 [facility] 1 [place] [address] PCP - General Internal Medicine - Primary Care 12/09/20 documented as of this encounter
--- OUTSIDE RECORDS SUMMARY | 2024-02-10 01:18 | XMS_ITS | Encounter Summary ---
Author Organization [facility] Address [address] [place] [address] Care Team Providers Care Garnett Machine Operator Name Role Phone Carrington Calderon MD Primary Care Provi anders Reason for Visit * Reason Comments Nutrition Counseling * Consult (See Order Priority) - Order Cancelled Specialty Diagnoses / Procedures Referred By Contact Referred To Contact Nutrition / Gastroenterology and Hepatology Diagnoses Gastroparesis Scott Arzate MD 111 [facility] Level 5 [place] [address] [facility] Mp5 Gi [address] [place] [address] Referral ID Status Reason Start Date Expiration Date Visits Requested Visits Authorized [id number] Order Cancelled Specialty Services Required 10/09/2021 1 1 Encounter Details Date Type Department Care Team (Late st Contact Info) Description 10/14/2021 11:[address] [facility] Gastroenterology [facility] [address] [place], [place] [phone] [address] [place] [address] Gastroparesis; Type 2 diabetes mellitus with diabetic polyneuropathy, with long-term current use of insulin ([facility] ([facility]) Social History Tobacco Use Types [...] (insulin requiring), and gastroparesis. Recently moved to [place], [place]. Reports frequent nausea, early satiety. Has [...] Home Patient location state: Visit Location State: [place] The location of the provider: Office Provider location state: Visit Location State: [place] The following people and their roles were [...] glucose test strips ??? flash glucose sensor ([employer] Corporation[employer] FLORA 2 SENSOR) kit ??? gabapentin (NEURONTIN) [...] My Chart, and web resources for gastroparesis ([place]) Stella has recently moved to [place], and is in the process of establishing a PCP and locksmith helper. Encouraged obtaining new meter for closer monitoring of blood glucose levels. Encouraged activity/movement on a daily basis, especially after eating. PLAN: Nutrition Recommendations and Goals: 1. Diet for gastroparesis- lower fat, modified textures to soft/blended, modified high fiber foods 2. Continue to follow diet guidelines for DM, re-establish care w/ locksmith helper, perhaps at Exercise/Activity Recommendations: exercise/activity as tolerated Educational materials provided: Diet for Gastroparesis Method: Handout and Verbal Taught to: Patient Barriers: None Outcomes: verbalized understanding I spent a total of 45 minutes with Cristy Luo today and 40 minutes of that time was spent incounseling and coordination of care as described in the progress note. Savita Curtis RD [phone] documented in this encounter Plan of Treatment Upcoming Encounters Date Type Department Care Team (Late st Contact Info) Description 02/21/2024 9:[address] [facility] Adult Primary Care - [address] 117031 Carrington Calderon MD [address] [phone] 02/27/2024 8:[address] [facility] Sleep Program - [address] [address] Dwight Colbert [address] [place] [address] [phone] 02/29/2024 10:30 EDT Appointment [facility] Radiology Nuclear Medicine and PET - [address] [phone] 02/29/2024 14:30 EDT Appointment [facility] Radiology Nuclear Medicine and PET [address] 527481 03/01/2024 8:00 EDT Appointment [facility] Radiology Nuclear Medicine and PET [address] 617231 03/01/2024 9:30 EDT Appointment [facility] Radiology Nuclear Medicine and PET - [address] [phone] documented as of this encounter Visit Diagnoses Diagnosis Gastroparesis Type 2 diabetes mellitus with diabetic polyneuropathy, with long-term current use of insulin ([facility]) documented in this encounter Care Teams Garnett Machine Operator Relationship Specialty Start Date End Date Carrington Calderon MD 1 [facility] Level 1 [place] [address] PCP - General Internal Medicine - Primary Care 12/09/20 documented as of this encounter
--- OUTSIDE RECORDS SUMMARY | 2024-02-10 01:18 | XMS_ITS | Encounter Summary ---
Author Organization [facility] Address [address] [place] [address] Care Team Providers Care Lead Sql Developer Name Role Phone Carrington Calderon MD Primary Care Provi adners Reason for Visit * Reason Onset Date Comments COVID-19 Positive Patient Outreach 02/25/2022 Encounter Details Date Type Department Care Team (Late st Contact Info) Description 02/25/2022 Telephone [facility] Adult Primary Care [address] [phone] Carrington Calderon MD [address] [phone] COVID-19 Positive Patient Outreach Social [...] wash your hands often. Rx pended with [facility] pharmacy loaded. Patient lives in [place] but says that her [id number] will be in [place] this afternoon and will be able to [...] System [facility] Adult Primary Care - [address] [phone] Carrington Calderon MD [address] [phone] 02/27/2024 8:30 EDT Telemedicine [facility] Sleep Program - [address] [phone] Dwight Colbert [address] [place] [address] [phone] 02/29/2024 10:30 EDT Appointment [facility] Radiology Nuclear Medicine and PET - [address] [id number] 02/29/2024 14:30 EDT Appointment [facility] Radiology Nuclear Medicine and PET - [address] [id number] 03/01/2024 8:00 EDT Appointment [facility] Radiology Nuclear Medicine and PET - [address] [phone] 03/01/2024 9:30 EDT Appointment [facility] Radiology Nuclear Medicine and PET - [address] [address] documented as of this encounter Visit Diagnoses Diagnosis COVID-19 virus infection- Primary documented in this encounter Care Teams Lead Sql Developer Relationship Specialty Start Date End Date Carrington Calderon MD 1 [facility] 1 [place] [phone] PCP - General Internal Medicine - Primary Care 12/09/20 documented as of this encounter
--- OUTSIDE RECORDS SUMMARY | 2024-02-10 01:18 | XMS_ITS | Encounter Summary ---
Author Organization [facility] Address [address] [place] [address] Care Team Providers Care Best Worker Name Role Phone Carrington Calderon MD Primary Care Provi anders Reason for Visit * Reason Comments Diabetes * Consult (See Order Priority) - Order Cancelled Specialty Diagnoses / Procedures Referred By Kit goode Referred To Contact Endocrinology Diagnoses Type 2 diabetes mellitus with diabetic polyneuropathy, with long-term current use of insulin ([facility]) Carrington Calderon MD 1 [facility] Level 1 [place] [address] [facility] Endocrinology [address] [place] [id number] Referral ID Status Reason Start Date Expiration Date Visits Requested Visits Authorized [id number] Order Cancelled Specialty Services Required 01/29/2022 1 1 Encounter Details Date Type Department Care Team (Late st Contact Info) Description 03/15/2022 8:40 EDT Telemedicine [facility] Endocrinology - [address] [address] Eryn Mims DO [address] [place] [address] [address] [place] [address] Type 2 diabetes mellitus with [...] 0 ??? blood glucose test strips Brand: Zzish Cristo, use as directed if Freestyle Vignesh [...] 2 READER) misc 1 Device by [facility] (non-drug; comboroute) route continuous. 1 Each 0 ??? flash glucose sensor (FREESTYLE VIGNESH 14 DAY SENSOR) kit Inject 1 Kit into the skin every 14 days. 6 Kit 3 ??? flash glucose sensor (FREESTYLE VIGNESH 2 SENSOR) kit 1 Device by [facility] (non- drug; combo route) route continuous. [...] [facility] Adult Primary Care - [address] [phone] Carrington Calderon MD [address] [phone] 02/27/2024 8:30 EDT Telemedicine [facility] Sleep Program - [address] 358401 Dwight Colbert [address] [place] [address] [phone] 02/29/2024 10:30 EDT Appointment [facility] Radiology Nuclear Medicine and PET - [address] [phone] 02/29/2024 14:30 EDT Appointment [facility] Radiology Nuclear Medicine and PET - [address] [id number] 03/01/2024 8:00 EDT Appointment [facility] Radiology Nuclear Medicine and PET - [address] [address] 03/01/2024 9:30 EDT Appointment [facility] Radiology Nuclear Medicine and PET - [address] [address] documented as of this encounter Visit Diagnoses Diagnosis Type 2 diabetes mellitus with diabetic polyneuropathy, with long-term current use of insulin ([facility])- Primary documented in this encounter Discontinued Medications Medication Sig Discontinue Reason Start Date End Da te flash glucose sensor (FREESTYLE VIGNESH 2 SENSOR) kit 1 Device by misc (non-drug; combo route) route continuous. Reorder 10/01/2020 03/15/2022 SITagliptin (JANUVIA) 50 mg tablet Take 1 Tab by mouth daily. Reorder 09/02/2020 03/15/2022 documented as of this encounter Care Teams Best Worker Relationship Specialty Start Date End Date Carrington Calderon MD 1 [facility] Level 1 [place] [address] PCP - General Internal Medicine - Primary Care 12/09/20 documented as of this encounter
--- OUTSIDE RECORDS SUMMARY | 2024-02-10 01:18 | XMS_ITS | Encounter Summary ---
Author Organization [facility] Address [address] [place] [address] Care Team Providers Care Analytics Manager Name Role Phone Carrington Calderon MD Primary Care Provi anders Abigail Díaz Unavailable [phone] Carmelo Hendrickson Unavailable Unavailable Abigail Díaz Unavailable Reason for Visit * Reason Onset Date Comments Appointment Related 02/05/2022 LVM in regar ds to zomm appt. Adivised to call back for any questions or concerns. x2 Encounter Details Date Type Department Care Team (Late st Contact Info) Description 02/05/2022 Telephone [facility] Gastroenterology - [address] [address] Scott Arzate MD [address] [place] [address], Level [address] [place] [address] Appointment Related (LVM in regards [...] [facility] Adult Primary Care - [address] 077691 Carrington Calderon MD [address] [phone] 02/27/2024 8:30 EDT Telemedicine [facility] Sleep Program - [address] [address] Dwight Colbert [address] [place] [address] [phone] 02/29/2024 10:30 EDT Appointment [facility] Radiology Nuclear Medicine and PET - [address] [id number] 02/29/2024 14:30 EDT Appointment [facility] Radiology Nuclear Medicine and PET - [address] 170091 03/01/2024 8:00 EDT Appointment [facility] Radiology Nuclear Medicine and PET - [address] [id number] 03/01/2024 9:30 EDT Appointment [facility] Radiology Nuclear Medicine and PET - [address] [phone] documented as of this encounter Visit Diagnoses Not on filedocumented in this encounter Care Teams Analytics Manager Relationship Specialty Start Date End Date Carrington Calderon MD 1 [facility] Level 1 [place] [phone] PCP - General Internal Medicine - Primary Care 12/09/20 Abiagil Díaz Sludge Control Operator 04/21/23 01/03/24 Carmelo Hendrickson Coordinator 12/01/23 Abigail Díaz Sludge Control Operator 01/04/24 documented as of this encounter
--- OUTSIDE RECORDS SUMMARY | 2024-02-10 01:18 | XMS_ITS | Encounter Summary ---
Author Organization [facility] Address [address] [place] [address] Care Team Providers Care University Teacher Name Role Phone Carrington Calderon MD Primary Care Provi anders Reason for Visit * Reason Comments Medication Management Follow-up Encounter Details Date Type Department Care Team (Late st Contact Info) Description 01/29/2022 11:00 EDT Telemedicine [facility] Adult Primary Care - [address] [phone] Carrington Calderon MD 1 [facility] Level 1 [place] [phone] Gastroparesis (Primary Dx); Tobacco use; Type 2 diabetes mellitus with diabetic polyneuropathy, with long-term current use of insulin ([facility]) ([facility]); Chronic midline low back pain [...] polyneuropathy, with long-term current use of insulin ([facility]) Inject 1 Kit into the skin [...] polyneuropathy, with long-term current use of insulin ([facility]) ([facility]): Diabetes remains uncontrolled per her most recent A1C of 9.7. According to her description, I am concerned that an increase in her Lantus dose could lead to dangerous hypoglycemia. I asked that she post her freestyle mitul data on [employer] for my review. She states that she [...] system when she attempted to go at [place]. I have asked my staff to follow-up [...] symptoms. She was seen in September in [place] emergency department for diabetic foot infection. She [...] was infected. She was referred to a poultry sexer up in the [facility] and was treated with topical and oral [...] [facility] - [address] 949641 Carrington Calderon MD [address] [phone] 02/27/2024 8:30 EDT Telemedicine [facility] Sleep Program - [address] 483431 Dwight Colbert [address] [place] [address] [phone] 02/29/2024 10:30 EDT Appointment [facility] Radiology Nuclear Medicine and PET [address] [phone] 02/29/2024 14:30 EDT Appointment [facility] Radiology Nuclear Medicine and PET [address] [phone] 03/01/2024 8:00 EDT Appointment [facility] Radiology Nuclear Medicine and PET - [address] 010621 03/01/2024 9:30 EDT Appointment [facility] Radiology Nuclear Medicine and PET [address] [phone] documented as of this encounter Visit Diagnoses Diagnosis Gastroparesis- Primary Tobacco use Tobacco use disorder Type 2 diabetes mellitus with diabetic polyneuropathy, with long-term current use of insulin ([facility]) Chronic midline low back pain without [...] documented as of this encounter Care Teams University Teacher Relationship Specialty Start Date End Date Carrington Calderon MD 1 [facility] Level 1 [place] [address] PCP - General Internal Medicine - Primary Care 12/09/20 documented as of this encounter
--- OUTSIDE RECORDS SUMMARY | 2024-02-10 01:18 | XMS_ITS | Encounter Summary ---
Author Organization [facility] Address [address] [place] [address] Care Team Providers Care Inventory Technician Name Role Phone Carrington Calderon MD Primary Care Provi anders Abigail Díaz Unavailable [phone] Carmelo Hendrickson Unavailable Unavailable Abigail Díaz Unavailable Reason for Visit * Reason Onset Date Comments Appointment Related 04/06/2021 Appointment reminder Encounter Details Date Type Department Care Team (Late st Contact Info) Description 04/06/2021 Telephone [facility] General Surgery - [address] [phone] Britta Cox, INFECTION CONTROL RN 111 [facility], Level [address] [place] [address] Appointment Related (Appointment reminder ) [...] [facility] Adult Primary Care - [address] [phone] Carrington Calderon MD [address] [phone] 02/27/2024 8:30 EDT Telemedicine [facility] Sleep Program - [address] 852131 Dwight Colbert [address] [place] [address] [phone] 02/29/2024 10:30 EDT Appointment [facility] Radiology Nuclear Medicine and PET [address] [address] 02/29/2024 14:30 EDT Appointment [facility] Radiology Nuclear Medicine and PET [address] 595491 03/01/2024 8:00 EDT Appointment [facility] Radiology Nuclear Medicine and PET [address] [phone] 03/01/2024 9:30 EDT Appointment [facility] Radiology Nuclear Medicine and PET [address] 397731 documented as of this encounter Visit Diagnoses Not on filedocumented in this encounter Care Teams Inventory Technician Relationship Specialty Start Date End Date Carrington Calderon MD [address] [place] [phone] PCP - General Internal Medicine - Primary Care 12/09/20 Abigail Díaz Radarman 04/21/23 01/03/24 Carmelo Hendrickson Coordinator 12/01/23 Abigail Díaz Radarman 01/04/24 documented as of this encounter
--- OUTSIDE RECORDS SUMMARY | 2024-02-10 01:18 | XMS_ITS | Encounter Summary ---
Author Organization [facility] Address [address] [place] [address] Care Team Providers Care Manager Sourcing Name Role Phone Carrington Calderon MD Primary Care Provi anders Reason for Visit * Reason Onset Date Comments Emesis 11/16/2021 24 hours- vomitt ing/ toe infection Encounter Details Date Type Department Care Team (Late st Contact Info) Description 11/16/2021 Telephone [facility] Adult Primary Care - [address] [phone] Carrington Calderon MD 1 [facility] Level 1 [place] [address] Emesis (24 hours- vomitting/ toe [...] going home to take her to the [facility] ED. Let him know that PCP's last OV note stated that pt should be seen in an OV if vomiting for more than 24 hours. He reports they would like a referral to the foot Dr, normally goes to [facility]. (Looks like pt missed OV.)They will [...] 06/11/21. Also missed OV at [facility]. * Telephone Encounter - Olive Munguia [...] [facility] - [address] 352931 Carrington Calderon MD [address] [place] [address] 1 [place] [phone] 02/27/2024 8:30 EDT Telemedicine [facility] Sleep Program - [address] 522871 Dwight Colbert [address] [place], [place] 410701 02/29/2024 10:30 EDT Appointment [facility] Radiology Nuclear Medicine and PET - [address] [phone] 02/29/2024 14:30 EDT Appointment [facility] Radiology Nuclear Medicine and PET - [address] 967421 03/01/2024 8:00 EDT Appointment [facility] Radiology Nuclear Medicine and PET - [address] [phone] 03/01/2024 9:30 EDT Appointment [facility] Radiology Nuclear Medicine and PET [address] [phone] documented as of this encounter Visit Diagnoses Not on filedocumented in this encounter Care Teams Manager Sourcing Relationship Specialty Start Date End Date Carrington Calderon MD 1 [facility] Level 1 [place] [phone] PCP - General Internal Medicine - Primary Care 12/09/20 documented as of this encounter
--- OUTSIDE RECORDS SUMMARY | 2024-02-10 01:19 | XMS_ITS | Encounter Summary ---
Author Organization [facility] Address [address] [place] [address] Care Team Providers Care Control Clerk Repairs Name Role Phone Unavailable Primary Care Provider Unavailabl e Reason for Visit * Reason Onset Date Comments Emesis 11/20/2020 Encounter Details Date Type Department Care Team (Late st Contact Info) Description 11/20/2020 Telephone [facility] Adult Primary Care - [address] [phone] Tonja Alejandro PA-C [address] [place] [address] [place] [phone] Emesis Social History Tobacco Use Types [...] but can talk to triage nurse at [facility]. Called and spoke briefly with [...] not receive [facility]. [facility] The patient indicates understanding of these [...] Visit [facility] Adult Primary Care - [address] 557901 Carrington Calderon MD [address] [phone] 02/27/2024 8:30 EDT Telemedicine [facility] Sleep Program - [address] [phone] Dwight Colbert [address] [place] [address] [phone] 02/29/2024 10:30 EDT Appointment [facility] Radiology Nuclear Medicine and PET - [address] [phone] 02/29/2024 14:30 EDT Appointment [facility] Radiology Nuclear Medicine and PET - [address] [address] 03/01/2024 8:00 EDT Appointment [facility] Radiology Nuclear Medicine and [address] [address] 03/01/2024 9:30 EDT Appointment [facility] Radiology Nuclear Medicine and PET [address] [address] documented as of this encounter Visit Diagnoses [...]
--- OUTSIDE RECORDS SUMMARY | 2024-02-10 01:19 | XMS_ITS | Encounter Summary ---
Author Organization [facility] Address [address] [place] [address] Care Team Providers Care Community Organization Aide Name Role Phone Unavailable Primary Care Provider Unavailabl e Reason for Visit * Reason Onset Date Comments No Show 11/24/2020 Encounter Details Date Type Department Care Team (Late st Contact Info) Description 11/24/2020 Telephone [facility] Adult Primary Care - [address] [phone] Tonja Alejandro PA-C [address] [place] [address] [place] [phone] No Show Social History Tobacco Use [...] [facility] Adult Primary Care - [address] 452321 Carrington Calderon MD [address] [phone] 02/27/2024 8:30 EDT Telemedicine [facility] Sleep Program - [address] 509871 Dwight Colbert [address] [place] [address] [phone] 02/29/2024 10:30 EDT Appointment [facility] Radiology Nuclear Medicine and PET - [address] 940571 02/29/2024 14:30 EDT Appointment [facility] Radiology Nuclear Medicine and PET [address] [phone] 03/01/2024 8:00 EDT Appointment [facility] Radiology Nuclear Medicine and PET [address] [phone] 03/01/2024 9:30 EDT Appointment [facility] Radiology Nuclear Medicine and PET [address] [phone] documented as of this encounter Visit Diagnoses Not on filedocumented in this encounter
--- OUTSIDE RECORDS SUMMARY | 2024-02-10 01:19 | XMS_ITS | Encounter Summary ---
Author Organization [facility] Address [address] [place] [address] Care Team Providers Care Director Of Web Marketing Name Role Phone Unavailable Primary Care Provider [...] 21:17 EDT - 12/07/2020 1:52 EDT Emergency [facility] Emergency Department - [address] [address] Fran Barbosa MD [address] [place] [address], Level 1 [place] [address] Andrés Garcia MD [address] [place] [phone] Nausea and vomiting, intractability of vomiting [...] through Care Everywhere. * Nausea and Vomiting (Tristanian) documented in this encounter Medications at Time [...] VIGNESH 2 READER) misc 1 Device by [facility] (non-drug; combo route) route continuous. 1 Each 10/01/2020 05/21/2022 flash glucose sensor (FREESTYLE VIGNESH 2 SENSOR) kit 1 Device by [facility] (non-drug; combo route) route continuous. 6 Kit [...] hyperglycemia, with long-term current use of insulin ([facility] [facility]) Use 1 pen needle as directed 4 [...] [facility] Adult Primary Care - [address] [address] Carrington Calderon MD [address] [phone] 02/27/2024 8:30 EDT Telemedicine [facility] Sleep Program - [address] [phone] Dwight Colbert [address] [place] [phone] 02/29/2024 10:30 EDT Appointment [facility] Radiology Nuclear Medicine and PET - [address] [phone] 02/29/2024 14:30 EDT Appointment [facility] Radiology Nuclear Medicine and PET [address] [address] 03/01/2024 8:00 EDT Appointment [facility] Radiology Nuclear Medicine and PET - [address] [address] 03/01/2024 9:30 EDT Appointment [facility] Radiology Nuclear Medicine and PET - [address] [address] documented as of this encounter Procedures Procedure [...] EDT) 12/11/2020 16:3 7 EDT Scan 2 Grinder PROCEDURE/MINOR BRAULIO GICAL ORDERABLES * (ABNORMAL) POCT URINE DIPSTICK, CLINITEK (12/07/2020 0:20 EDT) Color, UA Yellow Yellow 12/07/2020 0:26 [facility] Clarity, UA Clear Clear 12/07/2020 0:26 [facility] Glucose, UA 2+(A) Negative mg/dL 12/07/2020 0:26 [facility] Bilirubin, UA Negative Negative 12/07/2020 0:26 [facility] Ketones, UA 4+(AA) Negative mg/dL 12/07/2020 0:26 [facility] Specific [place], Urine 1.025 1.001 - 1.035 12/07/2020 0:26 [facility] Blood, UA Negative Negative 12/07/2020 0:26 [facility] pH, UA 7.0 <=8 12/07/2020 0:26 [facility] Protein, UA Negative Negative mg/dL 12/07/2020 0:26 [facility] Urobilinogen, UA 0.2 0.2 - 1.0 EU/dL 12/07/2020 0:26 EDT [facility] Nitrite, UA Negative Negative 12/07/2020 0:26 EDT [facility] Leuk Esterase Negative Negative 12/07/2020 0:26 EDT [facility] HN LAB COMMENT (CLINITEK, UR) Test performed at Emergency Department 12/07/2020 0:26 EDT [facility] Urine URINE SPECIMEN COLLECTION, CLEAN CATCH / Unknown 12/07/2020 0:20 EDT 12/07/2020 0:26 EDT Fran Barbosa MD POINT OF CARE TEST ORDERABLES Performing Organization Address [facility] Co de Phone Number [facility] [address] [place] [address] * POCT TEST, CLINITEK (12/07/2020 0:08 EDT) Pathologist [facility] UPT Result Negative Negative 12/07/2020 0:14 EDT [facility] HN LAB COMMENT (CLINITEK, UPT) Test performed at Emergency Department 12/07/2020 0:14 EDT [facility] Comment:False negative resul ts may occur in women who are beyond 5-8 weeks gestation. Diagnosis of should be based on a correlation of test results with typical clinical signs and symptoms. Urine URINE SPECIMEN COLLECTION, CLEAN CATCH / Unknown 12/07/2020 0:08 EDT 12/07/2020 0:14 EDT Fran Barbosa MD POINT OF CARE TEST ORDERABLES Performing Organization Address City/[facility] Co de Phone Number [facility] [address] [place] [address] * POCT CSN BARCODE URINE PREG TEST (12/07/2020 0:06 EDT) Urine URINE SPECIMEN COLLECTION, CLEAN CATCH / Unknown Urine Collect / Unknown 12/07/2020 0:06 EDT 12/07/2020 0:06 EDT Fran Barbosa MD LAB INFO SERV ICE AND SUPPORT & PHONE RESULT Performing Organization Address City/[facility]/ZIP Co de Phone Number [facility] [address] [place] [address] * POCT CSN BARCODE URINE DIPSTICK (12/07/2020 0:06 EDT) Urine URINE SPECIMEN COLLECTION, CLEAN CATCH / Unknown Urine Collect / Unknown 12/07/2020 0:06 EDT 12/07/2020 0:06 EDT Fran Barbosa MD LAB INFO SERV ICE AND SUPPORT & PHONE RESULT Performing Organization Address City/[facility]/ZIP Co de Phone Number [facility] [address] [place] [address] * (ABNORMAL) BASIC METABOLIC PANEL (BMP) (12/06/2020 23:42 EDT) Sodium 141 136 - 145 mEq/L 12/07/2020 0:08 [facility] Potassium 4.0 3.5 - 5.0 mEq/L 12/07/2020 0:08 [facility] Chloride 99 96 - 110 mEq/L 12/07/2020 0:08 [facility] CO2 Total 29 22 - 32 mEq/L 12/07/2020 0:08 [facility] Glucose 248(H) 70 - 100 mg/dL 12/07/2020 0:08 [facility] Calcium 9.8 8.5 - 10.5 mg/dL 12/07/2020 0:08 [facility] Calculated Calcium 9.9 8.5 - 10.5 mg/dL 12/07/2020 0:08 [facility] BUN 11 10 - 26 mg/dL 12/07/2020 0:08 [facility] Creatinine 0.45(L) 0.52 - 1.04 mg/dL 12/07/2020 0:08 [facility] eGFR 130 >60 mL/min/1.7 3m2 12/07/2020 0:08 [facility] Comment:eGFR calculated gil curtis CKD-EPI equation for non- Americans. Multiply eGFR by 1.16 for patients. Blood VENOUS BLOOD / Unknown Venipuncture / Unknown 12/06/2020 23:42 EDT 12/06/2020 23:45 EDT Fran Barbosa MD CHEMISTRY & B LOOD GAS ORDERABLES [facility] [address] [place] [address] * EKG 12-LEAD (12/06/2020 21:43 EDT) 12/06/2020 21:4 3 EDT Narrative [facility] EKG - 12/11/2020 16:34 EDT ?[facility] Emergency ? Test Date: ?2020-12-06 Pat Name: ? CRISTY LUO ?Department: ?? ED ? Room: ? AC07 Gender: ? Female ? Mainframe Programmer: ?? : ?1985 ? Requested By: DARÍO GAYLE Order Number: [id number] ? Sammie MARTÍNEZ: ?? TRACE SHAUN MARTÍNEZ ? Measurements Intervals ?Gilbert ? Rate: ? 86 ? P: ?8 [place]: ? 132 ?QRS: ?15 QRSD: ? 92 [...] Note Carolina Noyola MD - 12/11/2020 [facility] Emergency Test Date: 2020-12-06 Pat Name: CRISTY LUO Department: ED Room: [facility] Gender: Female Mainframe Programmer: : 1985 Requested By: DARÍO SANCHEZ Order Number: [id number] Reading MD: CAROLINA NOYOLA MD Measurements Intervals Gilbert Rate: 86 P: 8 [place]: 132 QRS: 15 QRSD: 92 T: -8 [...] CARDIAC ECG O RDERABLES Performing Organization Address City/[facility] Co de Phone Number [facility] EKG * (ABNORMAL) BETA HYDROXYBUTYRATE (12/06/2020 21:30 EDT) Pathologist [facility] Beta Hydroxybutyrate 2.0(H) <0.4 mmol/L 12/06/2020 22:19 EDT [facility] Blood VENOUS BLOOD / Unknown Venipuncture / Unknown 12/06/2020 21:30 EDT 12/06/2020 21:35 EDT Fran Barbosa MD CHEMISTRY & B LOOD GAS ORDERABLES Performing Organization Address [facility] Co de Phone Number [facility] [address] [place] [address] * LIPASE (12/06/2020 21:30 EDT) [facility] Lipase 97 <251 U/L 12/06/2020 22:06 EDT [facility] Blood VENOUS BLOOD / Unknown Venipuncture / Unknown 12/06/2020 21:30 EDT 12/06/2020 21:35 EDT Fran Barbosa MD CHEMISTRY & B LOOD GAS ORDERABLES Performing Organization Address [facility] de Phone Number [facility] [address] [place] [address] * (ABNORMAL) COMPREHENSIVE METABOLIC PANEL (CMP) (12/06/2020 21:30 EDT) Pathologist [facility] Sodium 142 136 - 145 mEq/L 12/06/2020 22:06 EDT [facility] Potassium 3.8 3.5 - 5.0 mEq/L 12/06/2020 22:06 [facility] Chloride 97 96 - 110 mEq/L 12/06/2020 22:06 [facility] CO2 Total 26 22 - 32 mEq/L 12/06/2020 22:06 [facility] Glucose 288(H) 70 - 100 mg/dL 12/06/2020 22:06 [facility] BUN 12 10 - 26 mg/dL 12/06/2020 22:06 [facility] Creatinine 0.50(L) 0.52 - 1.04 mg/dL 12/06/2020 22:06 [facility] eGFR 126 >60 mL/min/1.7 3m2 12/06/2020 22:06 [facility] Comment:eGFR calculated gil curtis CKD-EPI equation for non- Americans. Multiply eGFR by 1.16 for patients. Total Protein 7.7 6.3 - 8.2 g/dL 12/06/2020 22:06 [facility] Albumin 4.9 3.4 - 4.9 g/dL 12/06/2020 22:06 [facility] Alkaline Phosphatase 105 38 - 126 U/L 12/06/2020 22:06 [facility] AST 22 15 - 46 U/L 12/06/2020 22:06 [facility] ALT 21 <35 U/L 12/06/2020 22:06 [facility] Bilirubin, Total <0.5 <1.4 mg/dL 12/07/19 22:06 [facility] Calcium 10.6(H) 8.5 - 10.5 mg/dL 12/06/2020 22:06 [facility] Calculated Calcium 9.9 8.5 - 10.5 mg/dL 12/06/2020 22:06 [facility] Blood VENOUS BLOOD / Unknown Venipuncture / Unknown 12/06/2020 21:30 EDT 12/06/2020 21:35 EDT Fran Barbosa MD CHEMISTRY & B LOOD GAS ORDERABLES [facility] [address] [place] [address] * (ABNORMAL) COMPLETE BLOOD COUNT AND DIFFERENTIAL (12/06/2020 21:30 EDT) WBC 14.54(H) 4.00 - 12.40 K/cmm 12/06/2020 21:47 [facility] RBC 4.97 3.86 - 5.04 M/cmm 12/06/2020 21:47 [facility] Hemoglobin 15.5(H) 11.6 - 15.2 gm/dL 12/06/2020 21:47 [facility] HCT 42.8 34.9 - 44.4 % 12/06/2020 21:47 [facility] MCV 86 81 - 98 fl 12/06/2020 21:47 [facility] MCH 31.2 26.7 - 33.3 pg 12/06/2020 21:47 [facility] MCHC 36.2(H) 32.1 - 35.9 gm/dL 12/06/2020 21:47 [facility] RDW-CV 12.2 <14.7 % 12/06/2020 21:47 [facility] RDW-SD 38.5 <50.4 fl 12/06/2020 21:47 [facility] PLT 383(H) 141 - 377 K/cmm 12/06/2020 21:47 [facility] MPV 9.7 9.5 - 12.7 fl 12/06/2020 21:47 [facility] % Neutrophils 84.9 % 12/06/2020 21:47 [facility] % Lymphocytes 10.7 % 12/06/2020 21:47 [facility] % Monocytes 4.0 % 12/06/2020 21:47 [facility] % Eosinophils 0.0 % 12/06/2020 21:47 [facility] % Basophils 0.1 % 12/06/2020 21:47 [facility] % Immature Grans 0.3 % 12/07/19 21:47 [facility] Absolute Neutrophils 12.34(H) 2.20 - 8.85 K/cmm 12/06/2020 21:47 [facility] Absolute Lymphocytes 1.55 1.09 - 3.30 K/cmm 12/06/2020 21:47 [facility] Absolute Monocytes 0.58 0.10 - 0.80 K/cmm 12/06/2020 21:47 [facility] Absolute Eosinophils 0.00(L) 0.03 - 0.61 K/cmm 12/06/2020 21:47 [facility] ABS Basophils 0.02 0.01 - 0.11 K/cmm 12/06/2020 21:47 [facility] Absolute Immature Grans 0.05 0.00 - 0.06 K/cmm 12/06/2020 21:47 [facility] Type of Differential: Auto 12/06/2020 21:47 [facility] Blood VENOUS BLOOD / Unknown Venipuncture / Unknown 12/06/2020 21:30 EDT 12/06/2020 21:35 EDT Fran Barbosa MD PACKAGES & DN A PROBE ORDERABLES Performing Organization Address [facility]/State/[facility] Co de Phone Number [facility] [address] [place] [address] * BLOOD BANK HOLD (12/06/2020 21:30 EDT) Hold BB Spec will exp at 23:59, 3 days from collect date 12/06/2020 21:54 [facility] Blood VENOUS BLOOD / Unknown Venipuncture / Unknown 12/06/2020 21:30 EDT 12/06/2020 21:37 EDT Fran Barbosa MD BLOOD BANK TE STS [facility] [address] [place] [address] * HOLD SST (12/06/2020 21:30 EDT) Hold Hold 12/06/2020 22:45 EDT [facility] Blood VENOUS BLOOD / Unknown Venipuncture / Unknown 12/06/2020 21:30 EDT 12/06/2020 21:35 EDT Fran Barbosa MD LAB INFO SERV ICE AND SUPPORT & PHONE RESULT [facility] [address] [place] [address] * HOLD LAVENDER TOP (12/06/2020 21:30 EDT) Hold Hold 12/06/2020 22:45 EDT [facility] Blood VENOUS BLOOD / Unknown Venipuncture / Unknown 12/06/2020 21:30 EDT 12/06/2020 21:35 EDT Fran Barbosa MD LAB INFO SERV ICE AND SUPPORT & PHONE RESULT Performing Organization Address City/[facility]/ZIP Co de Phone Number [facility] [address] [place] [address] * HOLD GREEN TOP (12/06/2020 21:30 EDT) Hold Hold 12/06/2020 22:45 EDT [facility] Blood VENOUS BLOOD / Unknown Venipuncture / Unknown 12/06/2020 21:30 EDT 12/06/2020 21:35 EDT Fran Barbosa MD LAB INFO SERV ICE AND SUPPORT & PHONE RESULT [facility] [address] [place] [address] * HOLD BLUE TOP (12/06/2020 21:30 EDT) Hold Hold 12/06/2020 22:45 EDT [facility] Blood VENOUS BLOOD / Unknown Venipuncture / Unknown 12/06/2020 21:30 EDT 12/06/2020 21:35 EDT Fran Barbosa MD LAB INFO SERV ICE AND SUPPORT & PHONE RESULT [facility] [address] [place] [address] * (ABNORMAL) POCT GLUCOSE, INTERFACED (12/06/2020 21:13 EDT) Glucose, POC 304(H) 70 - 100 mg/dL 12/06/2020 21:17 EDT [facility] HN LAB POC COMMENT (GLUCOSE) Test Performed by Nursing Services 12/06/2020 21:17 EDT [facility] Blood CAPILLARY BLOOD / Unknown 12/06/2020 21:13 EDT 12/06/2020 21:17 EDT Provider Unknown POINT OF CARE TEST O RDERABLES Performing Organization Address City/[facility]/ZIP Co de Phone Number [facility] [address] [place] [address] documented in this encounter Visit Diagnoses Diagnosis [...]
--- OUTSIDE RECORDS SUMMARY | 2024-02-10 01:19 | XMS_ITS | Encounter Summary ---
Author Organization [facility] Address [address] [place] [address] Care Team Providers Care Business Agent Name Role Phone Unavailable Primary Care Provider Unavailabl e Reason for Visit * Reason Onset Date Comments Medication Questions 10/22/2020 Encounter Details Date Type Department Care Team (Late st Contact Info) Description 10/22/2020 Telephone [facility] Adult Primary Care - [address] [phone] Tonja Alejandro PA-C [address] [place] [address] [place] [phone] Medication Questions Social History Tobacco Use [...] Telephone Encounter - Kamini Whittaker - 10/22/2020 9312 EDT Call to pharmacy to clarify the [...] [facility] Adult Primary Care - [address] [phone] Carrington Calderon MD 1 [facility] Level 1 [place] [address] 02/27/2024 8:30 EDT Telemedicine [facility] Sleep Program - [address] [place] [address] Dwight Colbert [address] [place] [address] 02/29/2024 10:30 EDT Appointment [facility] Radiology Nuclear Medicine and PET - [address] [address] 02/29/2024 14:30 EDT Appointment [facility] Radiology Nuclear Medicine and PET - [address] [address] 03/01/2024 8:00 EDT Appointment [facility] Radiology Nuclear Medicine and PET [address] [phone] 03/01/2024 9:30 EDT Appointment [facility] Radiology Nuclear Medicine and PET [address] [address] documented as of this encounter Visit Diagnoses Not on filedocumented in this encounter Discontinued Medications Medication Sig Discontinue Reason Start Date End Da te gabapentin (NEURONTIN) 300 mg capsule Take 1 Cap by mouth 3 times daily. Reorder 08/01/2020 10/22/2020 documented as of this encounter
--- OUTSIDE RECORDS SUMMARY | 2024-02-10 01:19 | XMS_ITS | Encounter Summary ---
Author Organization [facility] Address [address] [place] [address] Care Team Providers Care Custodian Supervisor Name Role Phone Unavailable Primary Care Provider Unavailabl e Reason for Visit * Reason Comments Back Pain Encounter Details Date Type Department Care Team (Late st Contact Info) Description 11/04/2020 14:15 EDT Office Visit [facility] Adult Primary Care - [address] [phone] Tonja Alejandro PA-C [address] [place] [address] [place] [phone] Chronic midline low back pain with [...] the lumbarspine. We will get done at [place] [facility] -Continue physical therapy Tonja Alejandro PA-C [facility] 11/04/2020 14:45 I spent a [...] [facility] Adult Primary Care [address] 096[address] Carrington Calderon MD [address] [phone] 02/27/2024 8:30 EDT Telemedicine [facility] Sleep Program - [address] [address] Dwight Colbert [address] [place] [phone] 02/29/2024 10:30 EDT [facility] - [address] [phone] 02/29/2024 14:30 EDT Appointment [facility] Radiology Nuclear Medicine and PET - [address] [address] 03/01/2024 8:00 EDT Appointment [facility] Radiology Nuclear Medicine and PET - [address] [address] 03/01/2024 9:30 EDT Appointment [facility] Nuclear Medicine and PET [address] [address] documented as of this encounter Visit Diagnoses [...]
--- OUTSIDE RECORDS SUMMARY | 2024-02-10 01:19 | XMS_ITS | Encounter Summary ---
Author Organization [facility] Address [address] [place] [address] Care Team Providers Care Handyperson Name Role Phone Carrington Calderon MD Primary Care Provi anders Reason for Visit * Reason Onset Date Comments Heartburn 01/26/2021 Encounter Details Date Type Department Care Team (Late st Contact Info) Description 01/26/2021 Telephone [facility] Adult Primary Care - [place] [address] [place], [place] [address] Carrington Calderon MD 1 [facility] Level 1 [place] [address] Heartburn Social History Tobacco Use [...] Encounter - Eryn Navarrete RN - 01/26/2021 7165 EDT Spoke with patient and reviewed She [...] already taking any heartburn medications? Could do [id number] daily if not. * Telephone Encounter - [...] [facility] [address] [phone] Carrington Calderon MD 1 [facility] 1 [place] [phone] 02/27/2024 8:30 EDT Telemedicine [facility] Sleep Program - [address] [phone] Dwight Colbert [address] [place] [phone] 02/29/2024 10:30 EDT Appointment [facility] Radiology Nuclear Medicine and PET - [address] [phone] 02/29/2024 14:30 EDT [facility] Nuclear Medicine and PET - [address] [address] 03/01/2024 8:00 EDT [facility] Nuclear Medicine and PET - [address] [address] 03/01/2024 9:30 EDT Appointment [facility] Radiology Nuclear Medicine and PET - [address] [address] documented as of this encounter Visit Diagnoses Not on filedocumented in this encounter Care Teams Handyperson Relationship Specialty Start Date End Date Carrington Calderon MD 1 [facility] 1 [place] [address] PCP - General Internal Medicine - Primary Care 12/09/20 documented as of this encounter
--- OUTSIDE RECORDS SUMMARY | 2024-02-10 01:19 | XMS_ITS | Encounter Summary ---
Author Organization [facility] Address [address] [place] [address] Care Team Providers Care Gas Golf Cart Repairer Name Role Phone Unavailable Primary Care Provider Unavailabl e Reason for Visit * Reason Onset Date Comments Back Pain 10/29/2020 Encounter Details Date Type Department Care Team (Late st Contact Info) Description 10/29/2020 Telephone [facility] Adult Primary Care - [address] [address] [facility] [address] [place] [phone] Back Pain Social History Tobacco [...] [facility] - [address] [address] Carrington Calderon MD [address] [place] [address] 1 [place] [phone] 02/27/2024 8:30 EDT Telemedicine [facility] Sleep Program - [address] [place] [address] ColbertDwight garner [address] [place], [place] [address] 02/29/2024 10:30 EDT Appointment [facility] Radiology Nuclear Medicine and PET - [address] [address] 02/29/2024 14:30 EDT Appointment [facility] Radiology Nuclear Medicine and PET - [address] 870211 03/01/2024 8:00 EDT Appointment [facility] Radiology Nuclear Medicine and PET - [address] [phone] 03/01/2024 9:30 EDT [facility] Nuclear Medicine and PET - [address] [phone] documented as of this encounter Visit Diagnoses Not on filedocumented in this encounter
--- OUTSIDE RECORDS SUMMARY | 2024-02-10 01:19 | XMS_ITS | Encounter Summary ---
Author Organization [facility] Address [address] [place] [address] Care Team Providers Care Transmission And Protection Engineer Name Role Phone Carrington Calderon MD Primary Care Provi anders Reason for Visit * Reason Onset Date Comments Medications Refill 12/04/2020 Medications Refill 12/05/2020 Encounter Details Date Type Department Care Team (Late st Contact Info) Description 12/04/2020 Refill [facility] Adult Primary Care - [address] [phone] Tonja Alejandro PA-C [address] [place] [phone] Medications Refill; Medications Refill Social History [...] [facility] - [address] 199401 Carrington Calderon MD [address] [phone] 02/27/2024 8:30 EDT Telemedicine [facility] Sleep Program - [address] 148051 Dwight Colbert [address] [place] [address] [phone] 02/29/2024 10:30 EDT Appointment [facility] Radiology Nuclear Medicine and PET - [address] [phone] 02/29/2024 14:30 EDT Appointment [facility] Radiology Nuclear Medicine and PET - [address] [address] 03/01/2024 8:00 EDT Appointment [facility] Radiology Nuclear Medicine and PET [address] [address] 03/01/2024 9:30 EDT Appointment [facility] Radiology Nuclear Medicine and PET [address] [address] documented as of this encounter Visit Diagnoses Not on filedocumented in this encounter Discontinued Medications Medication Sig Discontinue Reason Start Date End Da te gabapentin (NEURONTIN) 300 mg capsule Take 1 Cap by mouth daily. Take 1 cap in the evening. (In addition to 100mg gabapentin twice daily) Reorder 10/22/2020 12/04/2020 documented as of this encounter Care Teams Transmission And Protection Engineer Relationship Specialty Start Date End Date Carrington Calderon MD 1 [facility] Level 1 [place] [phone] PCP - General Internal Medicine - Primary Care 12/09/20 documented as of this encounter
--- OUTSIDE RECORDS SUMMARY | 2024-02-10 01:19 | XMS_ITS | Encounter Summary ---
Author Organization [facility] Address [address] [place] [address] Care Team Providers Care Heat Transfer Technician Name Role Phone Carrington Calderon MD Primary Care Provi anders Encounter Details Date Type Department Care Team (Late st Contact Info) Description 02/12/2021 Orders Only [facility] Adult Primary Care - [place] 1 [place], [place] [address] Carrington Calderon MD 1 [facility] Level 1 [place] [phone] Osteomyelitis of great toe of [...] [facility] - [address] [phone] Carrington Calderon MD 1 [facility] Level 1 [place] [phone] 02/27/2024 8:30 EDT Telemedicine [facility] Sleep Program - [address] [address] Dwight Colbert [address] [place] [address] 02/29/2024 10:30 EDT Appointment [facility] Radiology Nuclear Medicine and PET - [address] [address] 02/29/2024 14:30 EDT Appointment [facility] Radiology Nuclear Medicine and PET - [address] [address] 03/01/2024 8:00 EDT Appointment [facility] Radiology Nuclear Medicine and PET [address] 051531 03/01/2024 9:30 EDT Appointment [facility] Radiology Nuclear Medicine and PET [address] [address] documented as of this encounter Visit Diagnoses Diagnosis Osteomyelitis of great toe of left foot (HCC-CMS)- Primary documented in this encounter Care Teams Heat Transfer Technician Relationship Specialty Start Date End Date Carrington Calderon MD [address] [place] [phone] PCP - General Internal Medicine - Primary Care 12/09/20 documented as of this encounter
--- OUTSIDE RECORDS SUMMARY | 2024-02-10 01:19 | XMS_ITS | Encounter Summary ---
Author Organization [facility] Address [address] [place] [address] Care Team Providers Care Shield Installer Name Role Phone Carrington Calderon MD Primary Care Provi andres Encounter Details Date Type Department Care Team [...] Visit [facility] Adult Primary Care - [address] [phone] Carrington Calderon MD [address] [phone] 02/27/2024 8:30 EDT Telemedicine [facility] Sleep Program - [address] [phone] Dwight Colbert [address] [place] [address] [phone] 02/29/2024 10:30 EDT Appointment [facility] Radiology Nuclear Medicine and PET - [address] [address] 02/29/2024 14:30 EDT [facility] Radiology Nuclear Medicine and PET - [address] [address] 03/01/2024 8:00 EDT [facility] Rad[facility] Nuclear Medicine and PET - [address] [address] 03/01/2024 9:30 EDT Appointment [facility] Radiology Nuclear Medicine and PET - [address] [address] documented as of this encounter Visit Diagnoses Not on filedocumented in this encounter Care Teams Shield Installer Relationship Specialty Start Date End Date Carrington Calderon MD 1 [facility] 1 [place] [address] PCP - General Internal Medicine - Primary Care 12/09/20 documented as of this encounter
--- OUTSIDE RECORDS SUMMARY | 2024-02-10 01:19 | XMS_ITS | Encounter Summary ---
Author Organization [facility] Address [address] [place] [address] Care Team Providers Care Medicine Assistant Name Role Phone Carrington Calderon MD Primary Care Provi anders Reason for Visit * Reason Onset Date Comments Medications Refill 03/12/2021 Encounter Details Date Type Department Care Team (Late st Contact Info) Description 03/12/2021 Telephone [facility] Adult Primary Care - [place] 1 [place], [place] [address] Carrington Calderon MD 1 [facility] Level 1 [place] [phone] Medications Refill Social History Tobacco [...] 0914 EDT Medication(s) Requested: Lorazepam [facility] Is patient out of medication? Yes Last Refill Date: 12/31/2020 Last Visit Date with Ordering Provider: 11/04/2020 Next Non-Acute Visit Date Scheduled with Care Team: No. Karen Trujillo 03/12/2021 9:15 documented in this encounter Plan of Treatment Upcoming Encounters Date Type Department Care Team (Late st Contact Info) Description 02/21/2024 9:45 EDT Office Visit [facility] Adult Primary Care - [address] [phone] Carrington Calderon MD [address] [phone] 02/27/2024 8:30 EDT Telemedicine [facility] Sleep Program - [address] 457691 Dwight Colbert [address] [place] [address] [phone] 02/29/2024 10:30 EDT Appointment [facility] Radiology Nuclear Medicine and PET - [address] [address] 02/29/2024 14:30 EDT Appointment [facility] Radiology Nuclear Medicine and PET [address] [address] 03/01/2024 8:00 EDT Appointment [facility] Radiology Nuclear Medicine and PET [address] [address] 03/01/2024 9:30 EDT Appointment [facility] Radiology Nuclear Medicine and PET - [address] [address] documented as of this encounter Visit Diagnoses [...] documented as of this encounter Care Teams Medicine Assistant Relationship Specialty Start Date End Date Carrington Calderon MD 1 [facility] 1 [place] [address] PCP - General Internal Medicine - Primary Care 12/09/20 documented as of this encounter
--- OUTSIDE RECORDS SUMMARY | 2024-02-10 01:19 | XMS_ITS | Encounter Summary ---
Author Organization [facility] Address [address] [place] [address] Care Team Providers Care Cook Helper Name Role Phone Unavailable Primary Care [...] [facility] Adult Primary Care - [address] [phone] Carrington Calderon MD [address] [phone] 02/27/2024 8:30 EDT Telemedicine [facility] Sleep Program - [address] [phone] Dwight Colbert [address] [place] [address] [phone] 02/29/2024 10:30 EDT Appointment [facility] Radiology Nuclear Medicine and PET - [address] 246521 02/29/2024 14:30 EDT Appointment [facility] Radiology Nuclear Medicine and PET - [address] [address] 03/01/2024 8:00 ED[facility] Radiology Nuclear Medicine and PET - [address] [address] 03/01/2024 9:30 EDT [facility]ment [facility] Radiology Nuclear Medicine and PET - [address] [address] documented as of this encounter Visit Diagnoses Not on filedocumented in this encounter
--- OUTSIDE RECORDS SUMMARY | 2024-02-10 01:19 | XMS_ITS | Encounter Summary ---
Author Organization [facility] Address [address] [place] [address] Care Team Providers Care Labor Economics Teacher Name Role Phone Unavailable Primary Care Provider Unavailabl e Reason for Visit * Reason Onset Date Comments Medications Refill 12/05/2020 Encounter Details Date Type Department Care Team (Late st Contact Info) Description 12/05/2020 Refill [facility] Adult Primary Care - [address] [phone] Tonja Alejandro PA-C [address] [place] [address] [place] [phone] Medications Refill Social History Tobacco Use [...] 0823 EDT Medication(s) Requested: Lorazepam Preferred Pharmacy: [facility] Is patient out of medication? Yes Last Refill Date: 10.22.20 Last Visit Date with Ordering Provider: 11.04.20 Next Non-Acute Visit Date Scheduled with Care Team: No. Ethan Aquino 12/05/2020 8:23 documented in this encounter Plan of Treatment Upcoming Encounters Date Type Department Care Team (Late st Contact Info) Description 02/21/2024 9:45 EDT Office Visit [facility] Adult Primary Care - [address] [phone] Carrington Calderon MD [address] [phone] 02/27/2024 8:30 EDT Telemedicine [facility] Sleep Program - [address] [phone] Dwight Colbert [address] [place] [address] [phone] 02/29/2024 10:[address] [facility] Radiology Nuclear Medicine and PET [address] [phone] 02/29/2024 14:[address] [facility] Radiology Nuclear Medicine and PET [address] [phone] 03/01/2024 8:[address] [facility] Radiology Nuclear Medicine and PET [address] [phone] 03/01/2024 9:[address] [facility] Radiology Nuclear Medicine and PET [address] [phone] documented as of this encounter Visit Diagnoses [...]
--- OUTSIDE RECORDS SUMMARY | 2024-02-10 01:19 | XMS_ITS | Encounter Summary ---
Author Organization [facility] Address [address] [place] [address] Care Team Providers Care Grief Counsellor Name Role Phone Carrington Calderon MD Primary Care Provi anders Reason for Visit * Reason Comments Other Encounter Details Date Type Department Care Team (Late st Contact Info) Description 03/16/2021 [facility] Adult Primary Care [facility] 1 [place], [place] 47[address] Carrington Calderon MD 1 [facility] Level 1 [place] [phone] Other Social History Tobacco Use [...] Visit [facility] Adult Primary Care - [address] [phone] Carrington Calderon MD 1 [facility] 1 [place] [phone] 02/27/2024 8:30 EDT Telemedicine [facility] Sleep Program - [address] [address] Dwight Colbert [address] [place] [address] [phone] 02/29/2024 10:30 EDT [facility]ment [facility] Radiology Nuclear Medicine and PET - [address] [phone] 02/29/2024 14:30 EDT [facility]ointment [facility] Radiology Nuclear Medicine and PET - [address] 118941 03/01/2024 8:00 EDT Appointment [facility] Radiology Nuclear Medicine and PET - [address] 362431 03/01/2024 9:30 EDT Appointment [facility] Radiology Nuclear Medicine and PET [address] [phone] documented as of this encounter Visit Diagnoses Not on filedocumented in this encounter Care Teams Grief Counsellor Relationship Specialty Start Date End Date Carrington Calderon MD 1 [facility] 1 [place] [phone] PCP - General Internal Medicine - Primary Care 12/09/20 documented as of this encounter
--- OUTSIDE RECORDS SUMMARY | 2024-02-10 01:19 | XMS_ITS | Encounter Summary ---
Author Organization [facility] Address [address] [place] [address] Care Team Providers Care Perfect Bind Machine Operator Name Role Phone Carrington Calderon MD Primary Care Provi anders Reason for Visit * Reason Onset Date Comments Referral Request 12/09/2020 GI Encounter Details Date Type Department Care Team (Late st Contact Info) Description 12/09/2020 Telephone [facility] Adult Primary Care [facility] 1 [place], [place] [phone] Tonja Alejandro PA-C [address] [place] [address] [place] [phone] Referral Request (GI) Social History Tobacco [...] [facility] Adult Primary Care - [address] 488791 Carrington Calderon MD [address] [phone] 02/27/2024 8:30 EDT Telemedicine [facility] Sleep Program - [address] [address] Dwight Colbert [address] [place] [address] [phone] 02/29/2024 10:30 EDT Appointment [facility] Radiology Nuclear Medicine and PET - [address] 428371 02/29/2024 14:30 EDT Appointment [facility] Radiology Nuclear Medicine and PET [address] 932661 03/01/2024 8:00 EDT Appointment [facility] Radiology Nuclear Medicine and PET [address] 850811 03/01/2024 9:30 EDT [facility]ment [facility] Radiology Nuclear Medicine and PET - [address] [phone] documented as of this encounter Visit Diagnoses Diagnosis Nausea- Primary Nausea alone Gastroparesis documented in this encounter Care Teams Perfect Bind Machine Operator Relationship Specialty Start Date End Date Carrington Calderon MD 1 [facility] Level 1 [place] [phone] PCP - General Internal Medicine - Primary Care 12/09/20 documented as of this encounter
--- OUTSIDE RECORDS SUMMARY | 2024-02-10 01:19 | XMS_ITS | Encounter Summary ---
Author Organization [facility] Address [address] [place] [address] Care Team Providers Care Manager Operations Research Name Role Phone Unavailable Primary Care Provider Unavailabl e Reason for Visit * Reason Onset Date Comments Prior Auth, Medication 10/23/2020 Encounter Details Date Type Department Care Team (Late st Contact Info) Description 10/23/2020 Telephone [facility] Adult Primary Care [address] 192821 Tonja Alejandro PA-C [address] [place] [address] [place] [phone] Prior Auth, Medication Social History Tobacco [...] Auth needed for Lidocaine 5% Patches Mejia: [id number] PA has been completed via [employer]. Awaiting decision Medication does not require a PA. Pharmacy notified documented in this encounter Plan of Treatment Upcoming Encounters Date Type Department Care Team (Late st Contact Info) Description 02/21/2024 9:45 EDT Office Visit [facility] Adult Primary Care [address] [address] Carrington Calderon MD 1 [facility] 1 [place] [address] 02/27/2024 8:30 EDT Telemedicine [facility] Sleep Program - [address] [address] Dwight Colbert [address] [place] [address] 02/29/2024 10:30 EDT [facility]ment [facility] Radiology Nuclear Medicine and PET - [address] [phone] 02/29/2024 14:30 EDT Appointment [facility] Radiology Nuclear Medicine and PET [address] 809381 03/01/2024 8:00 EDT Appointment [facility] Radiology Nuclear Medicine and PET - [address] 459651 03/01/2024 9:[address] [facility] and PET [address] 063291 documented as of this encounter Visit Diagnoses Not on filedocumented in this encounter
--- OUTSIDE RECORDS SUMMARY | 2024-02-10 01:19 | XMS_ITS | Encounter Summary ---
Author Organization [facility] Address [address] [place] [id number] Care Team Providers Care Convex Grinder Operator Name Role Phone Unavailable Primary Care Provider Unavailabl e Reason for Visit * Reason Comments Dehydration needs rehydration an d nausea meds per PCP Encounter Details Date Type Department Care Team (Latest Contact Info) Description 11/20/2020 9:58 EDT - 11/20/2020 12:29 EDT Hospital Encounter [facility] - [address] [address] Fran Blanco MD [address] [place] [phone] Nausea and vomiting, intractability of vomiting [...] through Care Everywhere. * Nausea and Vomiting ([place]) documented in this encounter Medications at Time of Discharge Medication Sig Dispensed Refills Start Date End Date acetaminophen (TYLENOL) 325 mg tablet Take 2 Tabs by mouth every 4 hours as needed for Pain. 08/20/2020 blood glucose meter One Touch Verio Flex meter. 1 Each 10/04/2019 12/21/2021 blood glucose test strips Brand: InvenSense Precision Cristo, use as directed if Freestyle [...] hyperglycemia, with long-term current use of insulin ([facility]) Use 1 pen needle as directed [...] Ketones, UA 3+ (AA) Negative mg/dL Specific [place], Urine 1.025 1.001 - 1.035 Blood, UA [...] or constipation. She's been in her usual [place] [facility] prior to this. No URI [...] 0 ??? blood glucose test strips Brand: PromiseUPyle Precision Cristo, use as directed if Freestyle [...] misc 1 Device by [facility] (non-drug; comboroute) route continuous. 1 Each 0 ??? flash glucose sensor (FREESTYLE VIGNESH 2 SENSOR) kit 1 Device by [facility] (non- drug; combo route) route continuous. 6 [...] diabetes mellitus with left diabetic foot ulcer ([facility]) 05/03/2020 ??? Osteomyelitis of great toe of left foot ([facility]) 03/12/2020 ??? Diabetic foot ulcer associated with diabetes mellitus due to underlying condition ([facility]) 03/07/2020 ??? Diabetic foot infection ([facility]) 03/06/2020 ??? Diabetic foot ulcer ([facility]) 03/06/2020 ??? Cellulitis of great toe of left foot 11/26/2019 ??? Chronic midline low back pain without sciatica 11/26/2019 ??? Chronic left ear pain 09/04/2015 ??? Gastroparesis 08/10/2020 SUSPECTED - still needs to be eval with gastric emptying study (as of 08/10/20) ??? Admission for sterilization 06/27/2020 Added automatically from request for surgery [id number] ??? Osteomyelitis of toe of left foot ([facility]) 06/05/2020 Added automatically from request for surgery [id number] ??? Type 2 diabetes mellitus with diabetic polyneuropathy, with long-term current use of insulin ([facility]) 06/05/2020 Added automatically from request for surgery [id number] ??? Family history of rheumatoid arthritis 09/04/2015 Mother, pt with chronic back pain. Told arthritis in spine in teen yrs. ??? Type 2 diabetes mellitus ([facility]) 09/03/2015 Dx approx age 25. Controlled with lifestyle behaviors, wt loss. Had taken lantus in past 80u, Followed by endocrine in [facility]. Stopped few yrs ago until this past month. ??? Anxiety and depression 05/12/2010 Onset teen yrs. Treated with citalopram in approx 2012 - had SI, treated at [place]. Marijuana prn to help with stress/anxiety sx. [...] has a referral for therapy. ??? Diabetes ([facility]) A1c 10.3 on 11/28/2019 - poorly controlled ??? Diabetes mellitus, type 2 ([facility]) pt check blood sugars at home- [...] vomiting occasionally ??? Obesity, unspecified ??? Osteomyelitis ([facility]) of left great toe-s/p amputation ??? [...] has a referral for therapy. ??? Diabetes ([facility]) A1c 10.3 on 11/28/2019 - poorly controlled ??? Diabetes mellitus, type 2 ([facility]) pt check blood sugars at home- [...] [facility] [address] [id number] Carrington Calderon MD [address] [phone] 02/27/2024 8:30 EDT Telemedicine [facility] Sleep Program - [address] [phone] Dwight Colbert [address] [place] [phone] 02/29/2024 10:30 EDT Appointment [facility] Radiology Nuclear Medicine and PET - [address] [id number] 02/29/2024 14:30 EDT Appointment [facility] Radiology Nuclear Medicine and PET - [address] [id number] 03/01/2024 8:[address] [facility] Radiology Nuclear Medicine and PET - [address] [phone] 03/01/2024 9:30 EDT Appointment [facility] Radiology Nuclear Medicine and PET - [address] [phone] documented as of this encounter Procedures Procedure [...] laboratory if clinically indicated. 11/21/2020 12:11 EDT [facility] Urine URINE SPECIMEN COLLECTION, CLEAN CATCH / Unknown Urine Collect / Unknown 11/20/2020 11:48 EDT 11/20/2020 12:45 EDT Fran Blanco MD MICROBIOLOGY - G ENERAL ORDERABLES Performing Organization Address [facility] de Phone Number [facility] [address] [place] [address] * (ABNORMAL) URINE SEDIMENT (MICRO) WITH REFLEX TO CULTURE (11/20/2020 11:48 EDT) Urine RBC Count, Auto 3 - 10(A) 0 - 2 Cells/HPF 11/20/2020 12:45 EDT [facility] Urine WBC Count, Auto 11 - 50(A) 0 - 3 Cells/HPF 11/20/2020 12:45 EDT [facility] Urine Squamous Count, Auto Many(A) None Seen Cells/HPF 11/20/2020 12:45 EDT [facility] Urine Hyaline Cast Count, Auto <=10 <=10 Casts/LPF 11/20/2020 12:45 EDT [facility] Urine Bacteria Count, Auto Moderate(A ) None Seen Bacteria/H PF 11/20/2020 12:45 EDT [facility] Urine URINE SPECIMEN COLLECTION, CLEAN CATCH / Unknown Urine Collect / Unknown 11/20/2020 11:48 EDT 11/20/2020 12:25 EDT Narrative [facility] - 11/20/2020 12:45 EDT A Urine Culture test has been reflexively ordered based on result criteria from the Urine Sediment Analysis. Urine Sediment Analysis results are unreliable on urines that are unrefrigerated for >2 hrs or refrigerated >8 hrs. Fran Blanco MD URINALYSIS ORDER [place] Performing Organization Address [facility] Co de Phone Number [facility] [address] [place] [address] * POCT CSN BARCODE URINE DIPSTICK (11/20/2020 11:47 EDT) Urine URINE SPECIMEN COLLECTION, CLEAN CATCH / Unknown Urine Collect / Unknown 11/20/2020 11:47 EDT 11/20/2020 11:47 EDT Fran Blanco MD LAB INFO SERVICE AND SUPPORT & PHONE RESULT Performing Organization Address [facility]/ZIP Co de Phone Number [facility] [address] [place] [address] * (ABNORMAL) POCT URINE DIPSTICK, CLINITEK (11/20/2020 11:44 EDT) Color, UA Yellow Yellow 11/20/2020 11:46 T [facility] Clarity, UA Cloudy(A) Clear 11/20/2020 11:46 EDT [facility] Glucose, UA 2+(A) Negative mg/dL 11/20/2020 11:46 T [facility] Bilirubin, UA Negative Negative 11/20/2020 11:46 T [facility] Ketones, UA 3+(AA) Negative mg/dL 11/20/2020 11:46 T [facility] Specific [place], Urine 1.025 1.001 - 1.035 11/20/2020 11:46 T [facility] Blood, UA Trace(A) Negative 11/20/2020 11:46 [facility] pH, UA 7.0 <=8 11/20/2020 11:46 T [facility] Protein, UA 1+(A) Negative mg/dL 11/20/2020 11:46 T [facility] Urobilinogen, UA 0.2 0.2 - 1.0 EU/dL 11/20/2020 11:46 T [facility] Nitrite, UA Negative Negative 11/20/2020 11:46 T [facility] Leuk Esterase Negative Negative 11/20/2020 11:46 T [facility] HN LAB COMMENT (CLINITEK, UR) Test performed at Urgent Care 11/20/2020 11:46 T [facility] Urine URINE SPECIMEN COLLECTION, CLEAN CATCH / Unknown 11/20/2020 11:44 EDT 11/20/2020 11:46 EDT Fran Blanco MD POINT OF CARE TE ST ORDERABLES [facility] [address] [place] [address] * (ABNORMAL) COMPLETE BLOOD COUNT AND DIFFERENTIAL (11/20/2020 10:35 EDT) WBC 14.78(H) 4.00 - 12.40 K/cmm 11/20/2020 11:51 [facility] RBC 4.65 3.86 - 5.04 M/cmm 11/20/2020 11:51 [facility] Hemoglobin 14.1 11.6 - 15.2 gm/dL 11/20/2020 11:51 [facility] HCT 40.7 34.9 - 44.4 % 11/20/2020 11:51 [facility] MCV 88 81 - 98 fl 11/20/2020 11:51 [facility] MCH 30.3 26.7 - 33.3 pg 11/20/2020 11:51 [facility] MCHC 34.6 32.1 - 35.9 gm/dL 11/20/2020 11:51 [facility] RDW-CV 12.5 <14.7 % 11/20/2020 11:51 [facility] RDW-SD 39.7 <50.4 fl 11/20/2020 11:51 [facility] PLT 385(H) 141 - 377 K/cmm 11/20/2020 11:51 [facility] MPV 10.2 9.5 - 12.7 fl 11/20/2020 11:51 [facility] % Neutrophils 84.6 % 11/20/2020 11:51 [facility] % Lymphocytes 10.4 % 11/20/2020 11:51 [facility] % Monocytes 4.3 % 11/20/2020 11:51 [facility] % Eosinophils 0.0 % 11/20/2020 11:51 [facility] % Basophils 0.2 % 11/20/2020 11:51 [facility] % Immature Grans 0.5 % 11/21/19 11:51 [facility] Absolute Neutrophils 12.51(H) 2.20 - 8.85 K/cmm 11/20/2020 11:51 [facility] Absolute Lymphocytes 1.53 1.09 - 3.30 K/cmm 11/20/2020 11:51 [facility] Absolute Monocytes 0.64 0.10 - 0.80 K/cmm 11/20/2020 11:51 [facility] Absolute Eosinophils 0.00(L) 0.03 - 0.61 K/cmm 11/20/2020 11:51 [facility] ABS Basophils 0.03 0.01 - 0.11 K/cm 11/20/2020 11:51 [facility] Absolute Immature Grans 0.07(H) 0.00 - 0.06 K/cmm 11/20/2020 11:51 [facility] Type of Differential: Auto 11/20/2020 11:51 [facility] Blood VENOUS BLOOD / Unknown Venipuncture / Unknown 11/20/2020 10:35 EDT 11/20/2020 11:37 EDT Fran Blanco MD PACKAGES & DNA P ROBE ORDERABLES [facility] [address] [place] [address] * (ABNORMAL) COMPREHENSIVE METABOLIC PANEL (CMP) (11/20/2020 10:35 EDT) Sodium 143 136 - 145 mEq/L 11/20/2020 12:01 [facility] Potassium 4.0 3.5 - 5.0 mEq/L 11/20/2020 12:01 [facility] Chloride 97 96 - 110 mEq/L 11/20/2020 12:01 [facility] CO2 Total 28 22 - 32 mEq/L 11/20/2020 12:01 [facility] Glucose 307(H) 70 - 100 mg/dL 11/20/2020 12:01 [facility] BUN 12 10 - 26 mg/dL 11/20/2020 12:01 [facility] Creatinine 0.49(L) 0.52 - 1.04 mg/dL 11/20/2020 12:01 [facility] eGFR 127 >60 mL/min/1.7 3m2 11/20/2020 12:01 [facility] Comment:eGFR calculated gil curtis CKD-EPI equation for non- Americans. Multiply eGFR by 1.16 for patients. Total Protein 7.6 6.3 - 8.2 g/dL 11/20/2020 12:01 [facility] Albumin 4.6 3.4 - 4.9 g/dL 11/20/2020 12:01 [facility] Alkaline Phosphatase 113 38 - 126 U/L 11/20/2020 12:01 [facility] AST 23 15 - 46 U/L 11/20/2020 12:01 [facility] ALT 21 <35 U/L 11/20/2020 12:01 [facility] Bilirubin, Total <0.5 <1.4 mg/dL 11/21/19 21 12:01 [facility] Calcium 10.3 8.5 - 10.5 mg/dL 11/20/2020 12:01 [facility] Calculated Calcium 9.8 8.5 - 10.5 mg/dL 11/20/2020 12:01 [facility] Blood VENOUS BLOOD / Unknown Venipuncture / Unknown 11/20/2020 10:35 EDT 11/20/2020 11:37 EDT Fran Blanco MD CHEMISTRY & BLOO D GAS ORDERABLES [facility] [address] [place] [address] documented in this encounter Visit Diagnoses Diagnosis [...]
--- OUTSIDE RECORDS SUMMARY | 2024-02-10 01:19 | XMS_ITS | Encounter Summary ---
Author Organization [facility] Address [address] [place] [address] Care Team Providers Care B2B Sales Executive Name Role Phone Unavailable Primary Care Provider Unavailabl e Reason for Referral * PT/OT/ST (Routine) - Closed Specialty Diagnoses / Procedures Referred By Contac t Referred To Contact Diagnoses Acute right-sided low back pain with sciatica, sciatica laterality unspecified Moshe Ferrer MD [address] [place] [phone] Gay Hyman, PT [id number] [place] [address] Referral ID Status Reason Start Date Expiration Date V isits Requested Visits Authorized [id number] Closed Specialty Services Required 10/22/2020 1 1 Question Answer Reason for Request: acute on chronic low back pain, history of emotional trauma Reason for Visit * Reason Comments Back Pain right lower back kuldeep n radiating down right lower limb. Encounter Details Date Type Department Care Team (Late st Contact Info) Description 10/22/2020 10:00 EDT Office Visit [facility] - [place] [address] [place], [place] [phone] Linnea Patel MD [address] [place] [id number] Acute right-sided low back pain with sciatica, [...] Linnea Patel MD - 10/22/2020 1000 EDT [place] [facility] Patient Name: [...] in the resident's note. Moshe Ferrer MD [facility] city detective documented in this encounter Plan of Treatment Upcoming Encounters Date Type Department Care Team (Late st Contact Info) Description 02/21/2024 9:45 EDT Office Visit [facility] Adult Primary Care - [address] [phone] Carrington Calderon MD 1 [facility] [address] [place] [phone] 02/27/2024 8:30 EDT Telemedicine [facility] Sleep Program - [address] [phone] Dwight Colbert [address] [place] [phone] 02/29/2024 10:30 EDT Appointment [facility] Radiology Nuclear Medicine and PET - [address] [phone] 02/29/2024 14:30 EDT Appointment [facility] Radiology Nuclear Medicine and PET - [address] [address] 03/01/2024 8:00 EDT Appointment [facility] Radiology Nuclear Medicine and PET [address] [address] 03/01/2024 9:30 EDT Appointment [facility] Radiology Nuclear Medicine and PET [address] [address] Scheduled Referrals Name Type Priority Associated Diagnoses [...]
--- OUTSIDE RECORDS SUMMARY | 2024-02-10 01:19 | XMS_ITS | Encounter Summary ---
Author Organization [facility] Address [address] [place] [address] Care Team Providers Care Frit Mixer And Burner Name Role Phone Carrington Calderon MD Primary [...] 20:55 EDT - 01/26/2021 1:16 EDT Emergency [facility] Emergency Department - [address] [phone] Mark Thibodeaux PA-C [address] [place] [phone] Siobhan Hare PA-C [address] [place] [phone] Non-intractable vomiting with nausea, unspecified vomiting [...] through Care Everywhere. * Nausea and Vomiting (Kazakh) documented in this encounter Medications at Time [...] VIGNESH 2 READER) misc 1 Device by [facility] (non-drug; combo route) route continuous. 1 Each 10/01/2020 05/21/2022 flash glucose sensor (FREESTYLE VIGNESH 2 SENSOR) kit 1 Device by [facility] (non-drug; combo route) route continuous. 6 Kit [...] current use of insulin ([facility]) Use 1 pen needle as [...] [facility] Adult Primary Care - [address] [phone] Carrington Calderon MD [address] [phone] 02/27/2024 8:30 EDT Telemedicine [facility] Sleep Program - [address] [address] Dwight Colbert [address] [place] [address] [phone] 02/29/2024 10:30 EDT Appointment [facility] Radiology Nuclear Medicine and PET - [address] [phone] 02/29/2024 14:30 EDT Appointment [facility] Radiology Nuclear Medicine and PET - [address] [id number] 03/01/2024 8:00 EDT Appointment [facility] Radiology Nuclear Medicine and PET - [address] 432301 03/01/2024 9:30 EDT Appointment [facility] Radiology Nuclear Medicine and PET - [address] [address] documented as of this encounter Procedures Procedure [...] EDT) 02/17/2021 18:1 8 EDT Scan 2 Cartography/Mapping Technician PROCEDURE/MINOR BRAULIO GICAL ORDERABLES * (ABNORMAL) POCT URINE DIPSTICK, CLINITEK (01/26/2021 0:21 EDT) Color, UA Yellow Yellow 01/26/2021 0:23 EDT [facility] Clarity, UA Clear Clear 01/26/2021 0:23 EDT [facility] Glucose, UA 2+(A) Negative mg/dL 01/26/2021 0:23 T [facility] Bilirubin, UA Negative Negative 01/26/2021 0:23 T [facility] Ketones, UA 4+(AA) Negative mg/dL 01/26/2021 0:23 EDT [facility] Specific [place], Urine >=1.030 1.001 - 1.035 01/26/2021 0:23 EDT [facility] Blood, UA Negative Negative 01/26/2021 0:23 [facility] pH, UA 6.0 <=8 01/26/2021 0:23 [facility] Protein, UA Negative Negative mg/dL 01/26/2021 0:23 [facility] Urobilinogen, UA 0.2 0.2 - 1.0 EU/dL 01/26/2021 0:23 [facility] Nitrite, UA Negative Negative 01/26/2021 0:23 [facility] Leuk Esterase Negative Negative 01/26/2021 0:23 [facility] HN LAB COMMENT (CLINITEK, UR) Test performed at Emergency Department 01/26/2021 0:23 [facility] Urine URINE SPECIMEN COLLECTION, CLEAN CATCH / Unknown 01/26/2021 0:21 EDT 01/26/2021 0:23 EDT Mark Thibodeaux PA-C POINT OF CARE TEST O RDERABLES [facility] [address] [place] [address] * POCT TEST, CLINITEK (01/26/2021 0:16 EDT) UPT Result Negative Negative 01/26/2021 0:23 EDT [facility] HN LAB COMMENT (CLINITEK, UPT) Test performed at Emergency Department 01/26/2021 0:23 EDT [facility] Comment:False negative resul ts may occur in women who are beyond 5-8 weeks gestation. Diagnosis of should be based on a correlation of test results with typical clinical signs and symptoms. Urine URINE SPECIMEN COLLECTION, CLEAN CATCH / Unknown 01/26/2021 0:16 EDT 01/26/2021 0:23 EDT Mark Thibodeaux PA-C POINT OF CARE TEST O RDERABLES Performing Organization Address [facility] de Phone Number [facility] [address] [place] [phone] * POCT CSN BARCODE URINE PREG TEST (01/26/2021 0:01 EDT) Urine URINE SPECIMEN COLLECTION, CLEAN CATCH / Unknown Urine Collect / Unknown 01/26/2021 0:01 EDT 01/26/2021 0:01 EDT Mark Thibodeaux PA-C LAB INFO SERVICE AND SUPPORT & PHONE RESULT Performing Organization Address [facility] de Phone Number [facility] [address] [place] [phone] * POCT CSN BARCODE URINE DIPSTICK (01/26/2021 0:01 EDT) Urine URINE SPECIMEN COLLECTION, CLEAN CATCH / Unknown Urine Collect / Unknown 01/26/2021 0:01 EDT 01/26/2021 0:01 EDT Mark Thibodeaux PA-C LAB INFO SERVICE AND SUPPORT & PHONE RESULT Performing Organization Address [facility] de Phone Number [facility] [address] [place] [phone] * (ABNORMAL) BETA HYDROXYBUTYRATE (01/25/2021 21:55 EDT) Beta Hydroxybutyrate 2.2(H) <0.4 mmol/L 01/25/2021 22:23 EDT [facility] Blood VENOUS BLOOD / Unknown Venipuncture / Unknown 01/25/2021 21:55 EDT 01/25/2021 21:57 EDT Mark Thibodeaux PA-C CHEMISTRY & BLOOD GA S ORDERABLES Performing Organization Address City/[facility]/ZIP Co de Phone Number [facility] [address] [place] [address] * (ABNORMAL) BASIC METABOLIC PANEL (BMP) (01/25/2021 21:55 EDT) Sodium 139 136 - 145 mmol/L 01/25/2021 22:18 EDT [facility] Potassium 3.7 3.5 - 5.0 mEq/L 01/25/2021 22:18 EDT [facility] Chloride 103 96 - 110 mEq/L 01/25/2021 22:18 [facility] CO2 Total 22 22 - 32 mEq/L 01/25/2021 22:18 [facility] Glucose 246(H) 70 - 100 mg/dL 01/25/2021 22:18 [facility] Calcium 8.8 8.5 - 10.5 mg/dL 01/25/2021 22:18 [facility] Calculated Calcium 8.9 8.5 - 10.5 mg/dL 01/25/2021 22:18 [facility] BUN 11 10 - 26 mg/dL 01/25/2021 22:18 [facility] Creatinine 0.48(L) 0.52 - 1.04 mg/dL 01/25/2021 22:18 [facility] eGFR 127 >60 mL/min/1.7 3m2 01/25/2021 22:18 [facility] Comment:eGFR calculated gil curtis CKD-EPI equation for non- Americans. Multiply eGFR by 1.16 for patients. Blood VENOUS BLOOD / Unknown Venipuncture / Unknown 01/25/2021 21:55 EDT 01/25/2021 21:57 EDT Mark Thibodeaux PA-C CHEMISTRY & BLOOD ND S ORDERABLES Performing Organization Address City/[facility]/ZIP Co de Phone Number [facility] [address] [place] [address] * EKG 12-LEAD (01/25/2021 21:12 EDT) 01/25/2021 21:1 2 EDT [facility] EKG - 02/17/2021 18:13 EDT ?[facility] Emergency ? Test Date: ?2021-01-25 Pat Name: ? CRISTY LUO ?Department: ?? ED ? Room: ? WB05 Gender: ? Female ? Rice Drier Operator: ?? : ?1985 ? Requested By: ANA Forman Order Number: [id number] ? Reading MD: ?? AGA JOHNGLIN MD ? Measurements Intervals ?[place] ? Rate: ? 66 ? P: ?74 VA: ? 136 ?QRS: ?5 QRSD: ? 98 [...] Note Aga Fairchild MD - 02/17/2021 [facility] Emergency Test Date: 2021-01-25 Pat Name: CRISTY LUO Department: ED Room: [facility] Gender: Female Rice Drier Operator: : 1985 Requested By: ANA Forman Order Number: [id number] Sammie MD: AGA FAIRCHILD MD Measurements Intervals [place] Rate: 66 P: 74 VA: 136 QRS: 5 QRSD: 98 T: -4 [...] Mark Thibodeaux PA-C CARDIAC ECG ORDERABL ES [facility] documented in this encounter Visit [...] 01/25 documented in this encounter Care Teams Frit Mixer And Burner Relationship Specialty Start Date End Date Carrington Calderon MD 1 [facility] 1 [place] [phone] PCP - General Internal Medicine - Primary Care 12/09/20 documented as of this encounter
--- OUTSIDE RECORDS SUMMARY | 2024-02-10 01:19 | XMS_ITS | Encounter Summary ---
Author Organization [facility] Address [address] [place] [address] Care Team Providers Care Audio Visual Aide Name Role Phone Unavailable Primary Care [...] [facility] Adult Primary Care - [address] [phone] Carrington Calderon MD 1 [facility] 1 [place] [phone] 02/27/2024 8:30 EDT Telemedicine [facility] Sleep Program - [address] [phone] Dwight Colbert [address] [place] [address]991 02/29/2024 10:30 EDT Appointment [facility] Radiology Nuclear Medicine and PET - [address] [phone] 02/29/2024 14:30 EDT Appointment [facility] Radiology Nuclear Medicine and PET - [address] [address] 03/01/2024 8:00 EDT Appointment [facility] Radiology Nuclear Medicine and PET - [address] [address] 03/01/2024 9:30 EDT Appointment [facility] Radiology Nuclear Medicine and PET [address] [address] documented as of this encounter Visit Diagnoses Not on filedocumented in this encounter
--- OUTSIDE RECORDS SUMMARY | 2024-02-10 01:19 | XMS_ITS | Encounter Summary ---
Author Organization [facility] Address [address] [place] [address] Care Team Providers Care Bit And Shank Department Supervisor Name Role Phone Unavailable Primary Care [...] [facility] Adult Primary Care - [address] [phone] Carrington Calderon MD [address] [phone] 02/27/2024 8:30 EDT Telemedicine [facility] Sleep Program - [address] 477111 Dwight Colbert [address] [place] [address] [phone] 02/29/2024 10:30 EDT Appointment [facility] Radiology Nuclear Medicine and PET - [address] 103751 02/29/2024 14:30 EDT Appointment [facility] Radiology Nuclear Medicine and PET - [address] [address] 03/01/2024 8:00 EDT [facility] Radiology Nuclear Medicine and PET - [address] [address] 03/01/2024 9:30 EDT [facility] Radiology Nuclear Medicine and PET - [address] [address] documented as of this encounter Visit Diagnoses Not on filedocumented in this encounter
--- OUTSIDE RECORDS SUMMARY | 2024-02-10 01:19 | XMS_ITS | Encounter Summary ---
Author Organization [facility] Address [address] [place] [address] Care Team Providers Care Setup Operator Name Role Phone Unavailable Primary Care [...] [facility] Adult Primary Care - [address] [phone] Carrington Calderon MD 1 [facility] 1 [place] [phone] 02/27/2024 8:30 EDT Telemedicine [facility] Sleep Program - [address] [phone] Dwight Colbert [address] [place] [phone] 02/29/2024 10:30 EDT Appointment [facility] Radiology Nuclear Medicine and PET - [address] [phone] 02/29/2024 14:30 EDT Appointment [facility] Radiology Nuclear Medicine and PET - [address] [address] 03/01/2024 8:00 EDT Appointment [facility] Radiology Nuclear Medicine and PET - [address] [address] 03/01/2024 9:30 EDT Appointment [facility] Radiology Nuclear Medicine and PET [address] [address] documented as of this encounter Visit Diagnoses Not on filedocumented in this encounter
--- OUTSIDE RECORDS SUMMARY | 2024-02-10 01:19 | XMS_ITS | Encounter Summary ---
Author Organization [facility] Address [address] [place] [address] Care Team Providers Care Financial Sales Representative Name Role Phone Carrington Calderon MD Primary Care Provi anders Reason for Visit * Reason Onset Date Comments No Show 02/18/2021 Encounter Details Date Type Department Care Team (Late st Contact Info) Description 02/18/2021 Telephone [facility] Adult Primary Care - [address] [phone] Carrington Calderon MD 1 [facility] Level 1 [place] [phone] No Show Social History Tobacco [...] [facility] Adult Primary Care - [address] [phone] Carrington Calderon MD [address] [place] [phone] 02/27/2024 8:30 EDT Telemedicine [facility] Sleep Program - [address] 750801 Dwight Colbert [address] [place] [phone] 02/29/2024 10:30 EDT Appointment [facility] Radiology Nuclear Medicine and PET - [address] [phone] 02/29/2024 14:30 EDT Appointment [facility] Radiology Nuclear Medicine and PET [address] [phone] 03/01/2024 8:00 EDT Appointment [facility] Radiology Nuclear Medicine and PET [address] [phone] 03/01/2024 9:30 EDT Appointment [facility] Radiology Nuclear Medicine and PET [address] 964781 documented as of this encounter Visit Diagnoses Not on filedocumented in this encounter Care Teams Financial Sales Representative Relationship Specialty Start Date End Date Carrington Calderon MD [address] [place] [phone] PCP - General Internal Medicine - Primary Care 12/09/20 documented as of this encounter
--- OUTSIDE RECORDS SUMMARY | 2024-02-10 01:19 | XMS_ITS | Encounter Summary ---
Author Organization [facility] Address [address] [place] [address] Care Team Providers Care Caterpillar Mechanic Name Role Phone Carrington Calderon MD Primary Care Provi anders Abigail Díaz Unavailable Carmelo Hendrickson Unavailable Unavailable Abigail Díaz Unavailable [phone] Reason for Visit * Reason Onset Date Comments Medications Refill 12/31/2020 Encounter Details Date Type Department Care Team (Late st Contact Info) Description 12/31/2020 Refill [facility] Adult Primary Care - [address] [phone] Carrington Calderon MD 1 [facility] Level 1 [place] [phone] Medications Refill Social History Tobacco Use Types [...] [facility] Adult Primary Care - [address] [phone] Carrington Calderon MD [address] [phone] 02/27/2024 8:30 EDT Telemedicine [facility] Sleep Program - [address] 238131 Dwight Colbert [address] [place] [address] [phone] 02/29/2024 10:30 EDT [facility] Radiology Nuclear Medicine and PET - [address] [phone] 02/29/2024 14:30 EDT [facility] Radiology Nuclear Medicine and PET - [address] 576641 03/01/2024 8:00 EDT [facility] Radiology Nuclear Medicine and PET - [address] 167601 03/01/2024 9:30 EDT Appointment [facility] Radiology Nuclear Medicine and PET - [address] 750461 documented as of this encounter Visit Diagnoses Not on filedocumented in this encounter Discontinued Medications Medication Sig Discontinue Reason Start Date End Da te LORazepam (ATIVAN) 0.5 mg tablet Take 1 Tablet by mouth 3 times daily as needed for up to 14 days for Anxiety. Daily Max: 1.5 mg Reorder 12/05/2020 12/31/2020 documented as of this encounter Care Teams Caterpillar Mechanic Relationship Specialty Start Date End Date Carrington Calderon MD 1 [facility] 1 [place] [phone] PCP - General Internal Medicine - Primary Care 12/09/20 Abigail Díaz Adolescent Psychiatrist 04/21/23 01/03/24 Carmelo Hendrickson Coordinator 12/01/23 Abigail Díaz Adolescent Psychiatrist 01/04/24 documented as of this encounter
--- OUTSIDE RECORDS SUMMARY | 2024-02-10 01:20 | XMS_ITS | Encounter Summary ---
Author Organization [facility] Address [address] [place] [address] Care Team Providers Care Plumber And Tinner Name Role Phone Unavailable Primary Care Provider Unavailabl e Encounter Details Date Type Department Care Team (Late st Contact Info) Description 09/11/2020 Community Health Team [facility] [address] [facility], [address] [place] [address] Briana Larson [address] [facility] [address] [place] [address] Social History Tobacco Use Types Packs/Day Years [...] patient as discussed. .. Adult Primary Care [place], [address] [place] [address] Total Time: 15 min phone, 20 min care coordination, 10 min charting Referral: Counseling Follow up: Consult only Status: Graduated documented in this encounter Plan of Treatment Upcoming Encounters Date Type Department Care Team (Late st Contact Info) Description 02/21/2024 9:45 EDT Office Visit [facility] Adult Primary Care - [address] [address] Carrington Calderon MD [address] [phone] 02/27/2024 8:30 EDT Telemedicine [facility] Sleep Program - [address] [address] Dwight Colbert [address] [place] [address] [phone] 02/29/2024 10:30 EDT Appointment [facility] Radiology Nuclear Medicine and PET [address] [phone] 02/29/2024 14:30 EDT Appointment [facility] Radiology Nuclear Medicine and PET [address] 143301 03/01/2024 8:00 EDT Appointment [facility] Radiology Nuclear Medicine and PET [address] 100761 03/01/2024 9:30 EDT Appointment [facility] Radiology Nuclear Medicine and PET [address] [phone] documented as of this encounter Visit Diagnoses Not on filedocumented in this encounter
--- OUTSIDE RECORDS SUMMARY | 2024-02-10 01:20 | XMS_ITS | Encounter Summary ---
Author Organization [facility] Address [address] [place] [address] Care Team Providers Care Paper Stacker Name Role Phone Unavailable Primary Care Provider Unavailabl e Reason for Visit * Reason Onset Date Comments Medications Refill 10/07/2020 Encounter Details Date Type Department Care Team (Late st Contact Info) Description 10/07/2020 Telephone [facility] Endocrinology - [facility] [address] [place] [address] Sara Zafar NP [address] [facility] [address] [place] [address] Medications Refill Social History Tobacco [...] [facility] Primary Care - [address] [phone] Carrington Calderon MD 1 [facility] 1 [place] [address] 02/27/2024 8:30 EDT Telemedicine [facility] Sleep Program - [address] [address] Dwight Colbert [address] [place] [address] [phone] 02/29/2024 10:30 EDT Appointment [facility] Radiology Nuclear Medicine and PET - [address] 366381 02/29/2024 14:30 EDT Appointment [facility] Radiology Nuclear Medicine and PET [address] 567951 03/01/2024 8:00 EDT Appointment [facility] Radiology Nuclear Medicine and PET [address] 617991 03/01/2024 9:30 EDT Appointment [facility] Radiology Nuclear Medicine and PET [address] [phone] documented as of this encounter Visit Diagnoses Not on filedocumented in this encounter
--- OUTSIDE RECORDS SUMMARY | 2024-02-10 01:20 | XMS_ITS | Encounter Summary ---
Author Organization [facility] Address [address] [place] [address] Care Team Providers Care Safe And Vault Service Mechanic Name Role Phone Unavailable Primary Care Provider Unavailabl e Reason for Visit * Reason Comments Post-OP Follow Up Encounter Details Date Type Department Care Team (Late st Contact Info) Description 09/04/2020 16:15 EDT Post-op Visit [facility] OBGYN Services - [address] [address] [place] [address] [place] [phone] Dysuria (Primary Dx) [...] 1615 EDT Department of Obstetrics and Gynecology [facility] CC: Postop follow-up Procedure: Laparoscopic bilateral [...] established with PCP but interested in annual FLIGHT DATA TECHNICIAN with [facility] clinic - Recommend scheduling visit for annual in [address] Alfonso. Clarke Joseph MD Obstetrics and Gynecology, PGY-2 Pager #[phone] 09/04/20 16:35 * Cristy Alfonso MD MPH - 09/04/2020 6235 EDT Attestation statement: I discussed the patient with the resident/fellow at the time of the visit. Iagree with the findings and the plan of care documented in the resident's/fellow's note. documented in this encounter Plan of Treatment Upcoming Encounters Date Type Department Care Team (Late st Contact Info) Description 02/21/2024 9:45 EDT Office Visit [facility] Adult Primary Care - [address] [phone] Carrington Calderon MD [address] [phone] 02/27/2024 8:30 EDT Telemedicine [facility] Sleep Program - [address] 104281 Dwight Colbert [address] [place] [address] [phone] 02/29/2024 10:30 EDT Appointment [facility] Radiology Nuclear Medicine and PET [address] 589201 02/29/2024 14:30 EDT Appointment [facility] Radiology Nuclear Medicine and [address] [phone] 03/01/2024 8:00 EDT Appointment [facility] Radiology Nuclear Medicine and PET [address] [phone] 03/01/2024 9:30 EDT Appointment [facility] Radiology Nuclear Medicine and PET [address] [phone] documented as of this encounter Procedures Procedure Name Priority Date/Time Associated Diagnosis Comments URINE CHEMICAL (DIP) & SEDIMENT (MICRO) WITH REFLEX TO CULTURE Routine 09/04/2020 16:57 EDT Dysuria BACTERIAL CULTURE, URINE Today 09/04/2020 16:57 EDT Dysuria documented in this encounter Results * BACTERIAL CULTURE, URINE (09/04/2020 16:57 EDT) Organism ID Less than 10,000 CFU/ml Usual urogenital candis. 09/06/2020 10:45 [facility] Urine URINE SPECIMEN COLLECTION, CLEAN CATCH / Unknown Urine Collect / Unknown 09/04/2020 16:57 EDT 09/04/2020 17:53 EDT Cristy Alfonso MD MPH MICROBIOLOGY - GENERAL ORDERABLES [facility] [address] [place] [address] * (ABNORMAL) URINE CHEMICAL (DIP) & SEDIMENT (MICRO) WITH REFLEX TO CULTURE (09/04/2020 16:57 EDT) Color UA Yellow Colorless, Yellow 09/04/2020 17:53 [facility] Clarity UA Clear Clear 09/04/2020 17:53 [facility] Glucose UA Negative Negative 09/04/2020 17:53 [facility] Bilirubin UA Negative Negative 09/04/2020 17:53 [facility] Ketones UA Trace(A) Negative 09/04/2020 17:53 [facility] Specific Zeph[place], Urine 1.032 1.001 - 1.035 09/04/2020 17:53 [facility] Blood UA Negative Negative 09/04/2020 17:53 [facility] Urobilinogen UA 3(A) Normal mg/dL 09/04/2020 17:53 [facility] Nitrite UA Negative Negative 09/04/2020 17:53 [facility] Leukocyte Esterase UA Trace(A) Negative 09/04/2020 17:53 [facility] Protein UA 1+(A) Negative 09/04/2020 17:53 [facility] pH, UA 6.5 4.6 - 8.0 09/04/2020 17:53 [facility] Urine RBC Count, Auto 3 - 10(A) 0 - 2 Cells/HPF 09/04/2020 17:53 EDT [facility] Urine WBC Count, Auto 11 - 50(A) 0 - 3 Cells/HPF 09/04/2020 17:53 EDT [facility] Urine Squamous Count, Auto Many(A) None Seen Cells/HPF 09/04/2020 17:53 EDT [facility] Urine Hyaline Cast Count, Auto <=10 <=10 Casts/LPF 09/04/2020 17:53 T [facility] Urine Bacteria Count, Auto Few(A) None Seen Bacteria/HP F 09/04/2020 17:53 EDT [facility] Urine URINE SPECIMEN COLLECTION, CLEAN CATCH / Unknown Urine Collect / Unknown 09/04/2020 16:57 EDT 09/04/2020 17:03 EDT Narrative [facility] - 09/04/2020 17:53 EDT A Urine Culture test has been reflexively ordered based on result criteria from the Urine Sediment Analysis. Urine Sediment Analysis results are unreliable on urines that are unrefrigerated for >2 hrs or refrigerated >8 hrs. Cristy Alfonso MD MPH URINALYSIS ORD ERABLES [facility] [address] [place] [address] documented in this encounter Visit Diagnoses Diagnosis Dysuria- Primary documented in this encounter
--- OUTSIDE RECORDS SUMMARY | 2024-02-10 01:20 | XMS_ITS | Encounter Summary ---
Author Organization [facility] Address [address] [place] [address] Care Team Providers Care Trade Recruiter Name Role Phone Unavailable Primary Care Provider Unavailabl e Encounter Details Date Type Department Care Team (Late st Contact Info) Description 10/10/2020 Orders Only [facility] Adult Primary Care - [address] 616331 Tonja Alejandro PA-C [address] [place] [address] [place] [phone] Social History Tobacco Use Types Packs/Day [...] [facility] - [address] [phone] Carrington Calderon MD [address] [phone] 02/27/2024 8:30 EDT Telemedicine [facility] Sleep Program - [address] 355401 Dwight Colbert [address] [place] [phone] 02/29/2024 10:30 EDT [facility]ment [facility] Radiology Nuclear Medicine and PET - [address] [phone] 02/29/2024 14:30 EDT Appointment [facility] Radiology Nuclear Medicine and PET - [address] [phone] 03/01/2024 8:00 EDT Appointment [facility] Radiology Nuclear Medicine and PET - [address] [phone] 03/01/2024 9:30 EDT Appointment [facility] Radiology Nuclear Medicine and PET [address] [phone] documented as of this encounter Visit Diagnoses Not on filedocumented in this encounter Discontinued Medications Medication Sig Discontinue Reason Start Date End Da te haloperidoL (HALDOL) 5 mg tablet Take 1 Tab by mouth daily as needed for Nausea. Alternate therapy 10/01/2020 10/10/2020 documented as of this encounter
--- OUTSIDE RECORDS SUMMARY | 2024-02-10 01:20 | XMS_ITS | Encounter Summary ---
Author Organization [facility] Address [address] [place] [address] Care Team Providers Care Electron Beam Photo Mask Technician Name Role Phone Unavailable Primary Care Provider Unavailabl e Reason for Visit * Reason Onset Date Comments Results 09/12/2020 Encounter Details Date Type Department Care Team (Late st Contact Info) Description 09/12/2020 Telephone [facility] OBGYN [address] [place], [place] [phone] [place] [address] [place] [phone] Results Social History [...] Joseph MD Obstetrics and Gynecology, PGY-2 Pager #[phone] 09/12/20 9:42 documented in this encounter Plan of Treatment Upcoming Encounters Date Type Department Care Team (Late st Contact Info) Description 02/21/2024 9:45 EDT Office Visit [facility] Adult Primary Care - [address] [address] Carrington Calderon MD [address] [phone] 02/27/2024 8:30 EDT Telemedicine [facility] Sleep Program - [address] [address] Dwight Colbert [address] [place] [address] [phone] 02/29/2024 10:30 EDT [facility]ointment [facility] Radiology Nuclear Medicine and PET - [address] [phone] 02/29/2024 14:30 EDT Appointment [facility] [place] Radiology Nuclear Medicine and PET [address] [phone] 03/01/2024 8:00 EDT Appointment [facility] Radiology Nuclear Medicine and PET - [address] [phone] 03/01/2024 9:30 EDT Appointment [facility] [place] Radiology Nuclear Medicine and PET [address] [phone] documented as of this encounter Visit Diagnoses Not on filedocumented in this encounter
--- OUTSIDE RECORDS SUMMARY | 2024-02-10 01:20 | XMS_ITS | Encounter Summary ---
Author Organization [facility] Address [address] [place] [address] Care Team Providers Care Senior Librarian Name Role Phone Unavailable Primary Care [...] [facility] Adult Primary Care - [address] [phone] Carrington Calderon MD 1 [facility] 1 [place] [phone] 02/27/2024 8:30 EDT Telemedicine [facility] Sleep Program - [address] [phone] Dwight Colbert [address] [place] [phone] 02/29/2024 10:30 EDT Appointment [facility] Radiology Nuclear Medicine and PET - [address] [phone] 02/29/2024 14:30 EDT Appointment [facility] Radiology Nuclear Medicine and PET - [address] [address] 03/01/2024 8:00 EDT Appointment [facility] Radiology Nuclear Medicine and PET - [address] [address] 03/01/2024 9:30 EDT [facility]ointment [facility] Radiology Nuclear Medicine and PET - [address] [address] documented as of this encounter Visit Diagnoses Not on filedocumented in this encounter
--- OUTSIDE RECORDS SUMMARY | 2024-02-10 01:20 | XMS_ITS | Encounter Summary ---
Author Organization [facility] Address [address] [place] [address] Care Team Providers Care Digital Printer Name Role Phone Unavailable Primary Care Provider [...] Visit [facility] Adult Primary Care - [address] [phone] Carrington Calderon MD [address] [phone] 02/27/2024 8:30 EDT Telemedicine [facility] Sleep Program - [address] 706271 Dwight Colbert [address] [place] [phone] 02/29/2024 10:30 EDT Appointment [facility] Radiology Nuclear Medicine and PET - [address] [phone] 02/29/2024 14:30 EDT Appointment [facility] Radiology Nuclear Medicine and PET - [address] [address] 03/01/2024 8:00 EDT Appointment [facility] Radiology Nuclear Medicine and PET - [address] [address] 03/01/2024 9:30 EDT [facility]ment [facility] Radiology Nuclear Medicine and PET - [address] [address] documented as of this encounter Visit Diagnoses Not on filedocumented in this encounter
--- OUTSIDE RECORDS SUMMARY | 2024-02-10 01:20 | XMS_ITS | Encounter Summary ---
Author Organization [facility] Address [address] [place] [address] Care Team Providers Care Dockmaster Name Role Phone Unavailable Primary Care Provider Unavailabl e Reason for Visit * Reason Onset Date Comments Back Pain 10/21/2020 Encounter Details Date Type Department Care Team (Late st Contact Info) Description 10/21/2020 Telephone [facility] Adult Primary Care - [address] [phone] Caroline Skinner MD [address] [place] [phone] Back Pain Social History Tobacco [...] Caroline Skinner MD - 10/21/2020 1910 EDT custodial manager message: arnold calling on her behalf. [facility] - [address] [address] Carrington Calderon MD 1 [facility] 1 [place] [address] 02/27/2024 8:30 EDT Telemedicine [facility] Sleep Program - [address] [address] Dwight Colbert [address] [place] [address] [phone] 02/29/2024 10:30 EDT Appointment [facility] Radiology Nuclear Medicine and PET - [address] [phone] 02/29/2024 14:30 EDT Appointment [facility] Radiology Nuclear Medicine and PET - [address] [phone] 03/01/2024 8:00 EDT [facility]ointment [facility] Radiology Nuclear Medicine and PET - [address] [phone] 03/01/2024 9:30 EDT Appointment [facility] Radiology Nuclear Medicine and PET - [address] [phone] documented as of this encounter Visit Diagnoses Not on filedocumented in this encounter
--- OUTSIDE RECORDS SUMMARY | 2024-02-10 01:20 | XMS_ITS | Encounter Summary ---
Author Organization [facility] Address [address] [place] [address] Care Team Providers Care Orthopaedic Doctor Name Role Phone Unavailable [facility] Provider [facility] [address] 125231 Carrington Calderon MD [address] [phone] 02/27/2024 8:30 EDT Telemedicine [facility] Sleep Program - [address] [phone] Dwight Colbert [address] [place] [address] [phone] 02/29/2024 10:30 EDT Appointment [facility] Radiology Nuclear Medicine and PET - [address] [phone] 02/29/2024 14:30 EDT Appointment [facility] Radiology Nuclear Medicine and PET - [address] [address] 03/01/2024 8:00 EDT Appointment [facility] Radiology Nuclear Medicine and PET - [address] [address] 03/01/2024 9:30 EDT Appointment [facility] Radiology Nuclear Medicine and PET - [address] [address] documented as of this encounter Visit Diagnoses Not on filedocumented in this encounter
--- OUTSIDE RECORDS SUMMARY | 2024-02-10 01:20 | XMS_ITS | Encounter Summary ---
Author Organization [facility] Address [address] [place] [address] Care Team Providers Care Publication Editor Name Role Phone Unavailable Primary Care Provider Unavailabl e Reason for Visit * Reason Onset Date Comments Medication Problem 10/06/2020 Encounter Details Date Type Department Care Team (Late st Contact Info) Description 10/06/2020 Telephone [facility] Adult Primary Care - [address] [phone] Tonja Alejandro PA-C [address] [place] [address] [place] [phone] Medication Problem Social History Tobacco Use [...] - 10/06/2020 1453 EDT Incoming fax from [facility] states the rx for lancets does [...] Visit [facility] Adult Primary Care - [address] [phone] Carrington Calderon MD 1 [facility] 1 [place] [address] 02/27/2024 8:30 EDT Telemedicine [facility] Sleep Program - [address] [phone] Dwight Colbert [address] [place] [address] [phone] 02/29/2024 10:30 EDT Appointment [facility] Radiology Nuclear Medicine and PET - [address] [phone] 02/29/2024 14:30 EDT Appointment [facility] Radiology Nuclear Medicine and PET - [address] [address] 03/01/2024 8:00 EDT Appointment [facility] Radiology Nuclear Medicine and PET - [address] [address] 03/01/2024 9:30 EDT Appointment [facility] Radiology Nuclear Medicine and PET - [address] [address] documented as of this encounter Visit Diagnoses [...]
--- OUTSIDE RECORDS SUMMARY | 2024-02-10 01:20 | XMS_ITS | Encounter Summary ---
Author Organization [facility] Address [address] [place] [address] Care Team Providers Care Metalizing Supervisor Name Role Phone Unavailable Primary Care Provider Unavailabl e Reason for Referral * Radiology Services (Routine) - Closed Specialty Diagnoses / Procedures Referred By Kit goode Referred To Contact Nuclear Medicine Diagnoses Generalized abdominal pain Emesis, persistent Type 2 diabetes mellitus with hyperosmolarity without coma, with long-term current use of insulin ([facility]) Procedures NM GASTRIC EMPTYING SOLID Broderick Irene MD [address] [place] [address] Referral ID Status Reason Start Date Expiration Date Visits Re quested Visits Authorized [id number] Closed 08/10/2020 1 1 Reason for Visit * Radiology Services (Routine) - Closed Specialty Diagnoses / Procedures [facility] Referred To Contact Nuclear Medicine Diagnoses Generalized abdominal pain Emesis, persistent Type 2 diabetes mellitus with hyperosmolarity without coma, with long-term current use of insulin ([facility]) Procedures NM GASTRIC EMPTYING SOLID Broderick Irene MD [address] [place] [address] Referral ID Status Reason Start Date Expiration Date Visits Re quested Visits Authorized [id number] Closed 08/10/2020 1 1 Encounter Details Date Type Department Care Team (Latest Contact Info) Description 09/09/2020 8:27 EDT - 09/09/2020 23:59 EDT Hospital En[facility] Radiology Nuclear Medicine and PET - [address] [address] Generalized abdominal pain; Emesis, persistent; Type 2 diabetes mellitus with hyperosmolarity without coma, with long-term current use of insulin ([facility]) Discharge Disposition: Home or Self Care [...] use of insulin ([facility]) Use 1 pen needle as directed [...] [facility] Adult Primary Care - [address] [phone] Carrington Calderon MD [address] [phone] 02/27/2024 8:30 EDT Telemedicine [facility] Sleep Program - [address] 500351 Dwight Colbert [address] [place], [place] 969751 02/29/2024 10:30 EDT Appointment [facility] Radiology Nuclear Medicine and PET - [address] [address] 02/29/2024 14:30 EDT Appointment [facility] Radiology Nuclear Medicine and PET [address] [address] 03/01/2024 8:00 EDT Appointment [facility] Radiology Nuclear Medicine and PET [address] [address] 03/01/2024 9:30 EDT Appointment [facility] Radiology Nuclear Medicine and PET [address] [address] documented as of this encounter Procedures Procedure Name Priority Date/Time Associated Diagnosis Comments NM GASTRIC EMPTYING SOLID Routine 09/09/2020 15:05 EDT Generalized abdominal pain Emesis, persistent Type 2 diabetes mellitus with hyperosmolarity without coma, with long-term current use of insulin ([facility]) POCT GLUCOSE, INTERFACED Routine 09/09/2020 8:47 EDT documented in this encounter Results * NM GASTRIC EMPTYING SOLID (09/09/2020 15:05 EDT) Anatomical Region Laterality Modality Body Nuclear Medicine 09/09/2020 16:1 0 EDT Impressions 09/09/2020 16:10 EDT Delayed gastric emptying for solid food. References: Manny et al. [place] Journal of Gastroenterology 2000. Kev et al. Gastroenterology 2006 Roshni et al. [place] Journal of Gastroenterology 2006. Narrative 09/09/2020 16:10 [...] for solid food. References: Tougas et al. [place] Journal of Gastroenterology 2000. Kev et al. Gastroenterology 2006 Roshni et al. [place] Journal of Gastroenterology 2006. Broderick Irene MD [facility] ORDERABLES * (ABNORMAL) POCT GLUCOSE, INTERFACED (09/09/2020 8:47 EDT) [facility] Signature Glucose, POC 107(H) 70 - 100 mg/dL 09/10/2020 6:44 EDT [facility] [place] [id number] 09/10/2020 6:44 EDT [facility] HN LAB POC COMMENT (GLUCOSE) Test performed by Nuclear Medicine 09/10/2020 6:44 EDT [facility] Blood CAPILLARY BLOOD / Unknown 09/09/2020 8:47 EDT 09/10/2020 6:44 EDT Provider Unknown MD POINT OF CARE TEST O RDERABLES [facility] [address] [place] [address] documented in this encounter Visit Diagnoses Diagnosis Generalized abdominal pain Abdominal pain, generalized Emesis, persistent Persistent vomiting Type 2 diabetes mellitus with hyperosmolarity without coma, with long-term current use of insulin ([facility]) documented in this encounter Administered [...]
--- OUTSIDE RECORDS SUMMARY | 2024-02-10 01:20 | XMS_ITS | Encounter Summary ---
Author Organization [facility] Address [address] [place] [address] Care Team Providers Care Boat Ride Operator Name Role Phone Unavailable Primary Care Provider Unavailabl e Reason for Visit * Reason Onset Date Comments Medication Questions 10/09/2020 Encounter Details Date Type Department Care Team (Late st Contact Info) Description 10/09/2020 Telephone [facility] Adult Primary Care - [address] [phone] Tonja Alejandro PA-C [address] [place] [address] [place] [phone] Medication Questions Social History Tobacco Use [...] Encounter - Tonja Alejandro PA-C - 10/21/2020 4685 EDT See previous notes. Spoke with patient [...] Visit [facility] Adult Primary Care - [address] [phone] Carrington Calderon MD [address] [phone] 02/27/2024 8:30 EDT Telemedicine [facility] Sleep Program - [address] [address] Dwight Colbert [address] [place] [address] [phone] 02/29/2024 10:30 EDT [facility]ointment [facility] Radiology Nuclear Medicine and PET - [address] 629091 02/29/2024 14:30 EDT Appointment [facility] Radiology Nuclear Medicine and PET - [address] [phone] 03/01/2024 8:[address] [facility] Radiology Nuclear Medicine and PET - [address] [phone] 03/01/2024 9:[address] [facility] Radiology [place] [address] documented as of this encounter Visit Diagnoses Not on filedocumented in this encounter
--- OUTSIDE RECORDS SUMMARY | 2024-02-10 01:20 | XMS_ITS | Encounter Summary ---
Author Organization [facility] Address [address] [place] [address] Care Team Providers Care Loin Puller Name Role Phone Unavailable Primary Care Provider [...] Expiration Date Visits Re quested Visits Authorized [id number] 1 1 Encounter Details Date Type Department Care Team (Late st Contact Info) Description 10/02/2020 18:44 EDT - 10/03/2020 12:37 EDT Hospital Encounter [facility] Specialty Surgery Unit [address] [place] [address] Jonas Ambrosio MD 111 [facility], Level [address] [place] [address] Bonita See MD [address] [phone] Intractable vomiting (Primary Dx); Intractable [...] post salpingectomy 08/24 who admitted to the [facility] with intractable nausea and vomiting. [...] hyperglycemia, with long-term current use of insulin ([facility]) Use 1 pen needle as [...] Disposition Code Departure Means Destination Home-Health Care [facility] Home documented in this encounter Progress Notes * Carlos Gabriel - 10/03/2020 1237 EDT Case Management Note: Patient was discharged home to self care prior to initial CM assessment. This hand sign writer reviewed the patient's chart and discussed the patient's situation with the medical team. No case management dc needs were identified. Carlos Gabriel RN, SENIOR ACCOUNTING CLERK, [facility] Pager # [phone] * Shirley Monte RN - 10/03/2020 0663 EDT Admission Note D - 35 y.o. [...] has a referral for therapy. ??? Diabetes ([facility]) A1c 10.3 on 11/28/2019 - poorly controlled ??? Diabetes mellitus, type 2 ([facility]) pt check blood sugars at [...] vomiting occasionally ??? Obesity, unspecified ??? Osteomyelitis ([facility]) of left great toe-s/p amputation ??? [...] VIGNESH 2 READER) misc 1 Device by [facility] (non-drug; comboroute) route continuous. 1 Each 0 10/02/2020 ??? flash glucose sensor (FREESTYLE VIGNESH 2 SENSOR) kit 1 Device by [facility] (non- drug; combo [...] IDDM2 c/b neuropathy - SSI - restart MANAGER JAVA lantis 42 U and aspart 9 U TID once resumes eating (hold and use SSI until see trend considering glucose values overnight and recurrent N/V after arrival to floor) - held sitagliptin Counseled on monitoring left second digit Back pain - MANAGER JAVA gabapentin Anxiety - MANAGER JAVA lorazepam Diet: Consistent carb diet VTE Prophylaxis: lovenox Consults: none CODE STATUS: Full Prognosis/Disposition: likely discharge home tomorrow is she is medically stable. Admission Status Inpatient. Anticipated duration of hospitalization is greater than two midnights due to intractablevomiting. Keerthi Alejandro, MS 4 Acting Discharge Rn 10/03/2020 1:45 Cortex; Pager #[phone] Attending Attestation Date of service: 10/03/20 I [...] exam for emergent medical conditions at the [facility] on 10/02/2020 This note was created [...] with her endo in November. Vicki CLARKE color worker Nurse Clinician #[id number] documented in this encounter Plan of Treatment Upcoming Encounters Date Type Department Care Team (Late st Contact Info) Description 02/21/2024 9:45 EDT Office Visit [facility] Adult Primary Care - [address] [phone] Carrington Calderon MD [address] [phone] 02/27/2024 8:30 EDT Telemedicine [facility] Sleep Program - [address] [phone] Dwight Colbert [address] [place] [phone] 02/29/2024 10:30 EDT Appointment [facility] Radiology Nuclear Medicine and PET [address] [phone] 02/29/2024 14:30 EDT Appointment [facility] Radiology Nuclear Medicine and PET [address] [phone] 03/01/2024 8:00 EDT Appointment [facility] Radiology Nuclear Medicine and PET [address] [phone] 03/01/2024 9:30 EDT Appointment [facility] Radiology Nuclear Medicine and PET [address] [phone] documented as of this encounter Procedures Procedure [...] EDT) 10/27/2020 16:3 8 EDT Scan 2 Fuel Attendant PROCEDURE/MINOR RBAULIO GICAL ORDERABLES * (ABNORMAL) COMPLETE BLOOD COUNT (10/03/2020 7:15 EDT) WBC 12.78(H) 4.00 - 12.40 K/cmm 10/03/2020 8:32 [facility] RBC 4.06 3.86 - 5.04 M/cmm 10/03/2020 8:32 [facility] Hemoglobin 13.1 11.6 - 15.2 gm/dL 10/03/2020 8:32 [facility] HCT 35.2 34.9 - 44.4 % 10/03/2020 8:32 [facility] MCV 87 81 - 98 fl 10/03/2020 8:32 [facility] MCH 32.3 26.7 - 33.3 pg 10/03/2020 8:32 [facility] MCHC 37.2(H) 32.1 - 35.9 gm/dL 10/03/2020 8:32 [facility] RDW-CV 12.2 <14.7 % 10/03/2020 8:32 [facility] RDW-SD 38.9 <50.4 fl 10/03/2020 8:32 [facility] PLT 372 141 - 377 K/cmm 10/03/2020 8:32 [facility] MPV 9.4(L) 9.5 - 12.7 fl 10/03/2020 8:32 [facility] Blood VENOUS BLOOD / Unknown Venipuncture / Unknown 10/03/2020 7:15 EDT 10/03/2020 8:21 EDT Bonita See MD HEMATOLOGY & PF4 ORD ERABLES Performing Organization Address City/[facility] Co de Phone Number [facility] [address] [place] [address] * (ABNORMAL) BUN (10/03/2020 7:15 EDT) BUN 6(L) 10 - 26 mg/dL 10/03/2020 9:07 EDT [facility] Blood VENOUS BLOOD / Unknown Venipuncture / Unknown 10/03/2020 7:15 EDT 10/03/2020 8:23 EDT Bonita See MD CHEMISTRY & BLOOD GA S ORDERABLES Performing Organization Address [facility] Co de Phone Number [facility] [address] [place] [address] * (ABNORMAL) CREATININE (10/03/2020 7:15 EDT) Creatinine 0.43(L) 0.52 - 1.04 mg/dL 10/03/2020 9:07 EDT [facility] eGFR 132 >60 mL/min/1.7 3m2 10/03/2020 9:07 EDT [facility] Comment:eGFR calculated gil curtis CKD-EPI equation for non- Americans. Multiply eGFR by 1.16 for patients. Blood VENOUS BLOOD / Unknown Venipuncture / Unknown 10/03/2020 7:15 EDT 10/03/2020 8:23 EDT Bonita See MD CHEMISTRY & BLOOD GA S ORDERABLES Performing Organization Address [facility] Co de Phone Number [facility] [address] [place] [address] * (ABNORMAL) ELECTROLYTES (10/03/2020 7:15 EDT) Pathologist [facility] Sodium 135(L) 136 - 145 mEq/L 10/03/2020 9:07 EDT [facility] Potassium 3.7 3.5 - 5.0 mEq/L 10/03/2020 9:07 EDT [facility] Chloride 98 96 - 110 mEq/L 10/03/2020 9:07 EDT [facility] CO2 Total 23 22 - 32 mEq/L 10/03/2020 9:07 EDT [facility] Blood VENOUS BLOOD / Unknown Venipuncture / Unknown 10/03/2020 7:15 EDT 10/03/2020 8:23 EDT Bonita See MD CHEMISTRY & BLOOD GA S ORDERABLES Performing Organization Address City/[facility]/ZIP Co de Phone Number [facility] [address] [place] [address] * (ABNORMAL) POCT GLUCOSE, INTERFACED (10/03/2020 6:02 EDT) [facility] Glucose, POC 177(H) 70 - 100 mg/dL 10/03/2020 6:08 EDT [facility] noc analyst ID [id number] 10/03/2020 6:08 EDT [facility] HN LAB POC COMMENT (GLUCOSE) Test Performed by Nursing Services 10/03/2020 6:08 EDT [facility] Blood CAPILLARY BLOOD / Unknown 10/03/2020 6:02 EDT 10/03/2020 6:08 EDT Bonita See MD POINT OF CARE TEST O RDERABLES [facility] [address] [place] [address] * COVID-19 TEST [facility] PCR (10/02/2020 22:44 EDT) Swab ENTIRE NASOPHARYNX / Unknown Swab / Unknown 10/02/2020 22:44 EDT 10/02/2020 22:46 EDT Nektarios Konstantinopoulos MD MICROBIOL OGY - GENERAL ORDERABLES [facility] [address] [place] [address] * COVID-19 TESTING (10/02/2020 22:44 EDT) COVID-19 rt-PCR Result Negative Negative 10/03/2020 1:45 EDT [facility] Comment: This test has not [...] history, and epidemiological information. Performed on the [employer] Fusion instrument Performing Lab [place] [facility] 10/03/2020 1:45 EDT [facility] Swab ENTIRE NASOPHARYNX / Unknown Swab / Unknown 10/02/2020 22:44 EDT 10/02/2020 22:46 EDT Beverly Marvin MD MICROBIOL OGY - GENERAL ORDERABLES [facility] [address] [place] [address] * CT ABDOMEN PELVIS W CONTRAST (10/02/2020 [...] suspicious osseous lesion. Multilevel discogenic endplate changes. Wilderness Guide: No additional findings. Procedure Note Wilian Wellington [...] or suspicious osseous lesion.Multilevel discogenic endplate changes. Wilderness Guide: No additional findings. IMPRESSION 1. No acute inflammatory process identified in the abdomen and pelvis. 2. Nonobstructing left renal calculus, unchanged. I have personally reviewed the images and the above interpretation andagree with the findings. Beverly Marvin MD IMG CT OR DERABLES * QUANT BETA HCG, (10/02/2020 19:51 EDT) Beta HCG Quant, <5 <5 mIU/ml 10/02/2020 20:26 EDT [facility] Comment: NOTE: : Negative: Less than 5mIU/mL Indeterminant: Between 5 and 25 mIU/mL, recommend repeat testing in 48 hours Positive: Greater than 25 mIU/mL The results of this assay can be falsely lowered due to the consumption of Biotin. Blood VENOUS BLOOD / Unknown Venipuncture / Unknown 10/02/2020 19:51 EDT 10/02/2020 19:54 EDT Beverly Marvin MD CHEMISTRY & BLOOD GAS ORDERABLES [facility] [address] [place] [address] * LACTIC ACID (10/02/2020 19:10 EDT) Lactic Acid 1.2 <=2.0 mmol/L 10/02/2020 19:28 EDT [facility] Blood VENOUS BLOOD / Unknown Venipuncture / Unknown 10/02/2020 19:10 EDT 10/02/2020 19:16 EDT Beverly Marvin MD CHEMISTRY & BLOOD GAS ORDERABLES Performing Organization Address City/[facility]/ZIP Co de Phone Number [facility] [address] [place] [address] * HOLD BLUE TOP (10/02/2020 19:10 EDT) Hold Hold 10/02/2020 20:17 EDT [facility] Blood VENOUS BLOOD / Unknown Venipuncture / Unknown 10/02/2020 19:10 EDT 10/02/2020 19:15 EDT Jonas Ambrosio MD LAB INFO SERVICE AND SUPPORT & PHONE RESULT Performing Organization Address [facility] Co de Phone Number [facility] [address] [place] [address] * (ABNORMAL) SCREENING GLUCOSE (10/02/2020 19:10 EDT) Pathologist [facility] Glucose, Screening 189(H) 70 - 100 mg/dL 10/02/2020 19:32 EDT [facility] Comment:Elevated screening g lucose value greater than 180 mg/dl, please order follow up Hemoglobin A1C. Blood VENOUS BLOOD / Unknown Venipuncture / Unknown 10/02/2020 19:10 EDT 10/02/2020 19:16 EDT Jonas Ambrosio MD CHEMISTRY & BLOOD GA S ORDERABLES Performing Organization Address [facility]/ZIP Co de Phone Number [facility] [address] [place] [address] * MAGNESIUM (10/02/2020 19:10 EDT) Magnesium 1.8 1.7 - 2.8 mg/dL 10/02/2020 19:28 EDT [facility] Blood VENOUS BLOOD / Unknown Venipuncture / Unknown 10/02/2020 19:10 EDT 10/02/2020 19:16 EDT Jonas Ambrosio MD CHEMISTRY & BLOOD GA S ORDERABLES Performing Organization Address [facility]/ZIP Co de Phone Number [facility] [address] [place] [address] * TROPONIN I (10/02/2020 19:10 EDT) Troponin I (ng/mL) <0.034 <0.034 ng/mL 10/02/2020 19:40 EDT [facility] Blood VENOUS BLOOD / Unknown Venipuncture / Unknown 10/02/2020 19:10 EDT 10/02/2020 19:16 EDT Narrative [facility] - 10/02/2020 19:40 EDT The results of this assay can be falsely lowered due to the consumption of Biotin. Jonas Ambrosio MD CHEMISTRY & BLOOD GA S ORDERABLES Performing Organization Address [facility] de Phone Number [facility] [address] [place] [address] * (ABNORMAL) ELECTROLYTES (10/02/2020 19:10 EDT) Pathologist [facility] Sodium 132(L) 136 - 145 mEq/L 10/02/2020 19:28 EDT [facility] Potassium 3.4(L) 3.5 - 5.0 mEq/L 10/02/2020 19:28 EDT [facility] Chloride 95(L) 96 - 110 mEq/L 10/02/2020 19:28 EDT [facility] CO2 Total 30 22 - 32 mEq/L 10/02/2020 19:28 EDT [facility] Blood VENOUS BLOOD / Unknown Venipuncture / Unknown 10/02/2020 19:10 EDT 10/02/2020 19:16 EDT Jonas Ambrosio MD CHEMISTRY & BLOOD GA S ORDERABLES Performing Organization Address [facility]/ZIP Co de Phone Number [facility] [address] [place] [address] * (ABNORMAL) CREATININE (10/02/2020 19:10 EDT) Creatinine 0.45(L) 0.52 - 1.04 mg/dL 10/02/2020 19:28 EDT [facility] eGFR 130 >60 mL/min/1.7 3m2 10/02/2020 19:28 EDT [facility] Comment:eGFR calculated gil curtis CKD-EPI equation for non- Americans. Multiply eGFR by 1.16 for patients. Blood VENOUS BLOOD / Unknown Venipuncture / Unknown 10/02/2020 19:10 EDT 10/02/2020 19:16 EDT Jonas Ambrosio MD CHEMISTRY & BLOOD GA S ORDERABLES Performing Organization Address [facility] Co de Phone Number [facility] [address] [place] [address] * (ABNORMAL) BUN (10/02/2020 19:10 EDT) BUN 6(L) 10 - 26 mg/dL 10/02/2020 19:28 EDT [facility] Blood VENOUS BLOOD / Unknown Venipuncture / Unknown 10/02/2020 19:10 EDT 10/02/2020 19:16 EDT Jonas Ambrosio MD CHEMISTRY & BLOOD GA S ORDERABLES Performing Organization Address City/[facility]/ZIP Co de Phone Number [facility] [address] [place] [address] * (ABNORMAL) COMPLETE BLOOD COUNT AND DIFFERENTIAL (10/02/2020 19:10 EDT) WBC 13.29(H) 4.00 - 12.40 K/cmm 10/02/2020 19:32 EDT [facility] RBC 4.09 3.86 - 5.04 M/cmm 10/02/2020 19:32 EDT [facility] Hemoglobin 12.7 11.6 - 15.2 gm/dL 10/02/2020 19:32 [facility] HCT 36.1 34.9 - 44.4 % 10/02/2020 19:32 [facility] MCV 88 81 - 98 fl 10/02/2020 19:32 [facility] MCH 31.1 26.7 - 33.3 pg 10/02/2020 19:32 [facility] MCHC 35.2 32.1 - 35.9 gm/dL 10/02/2020 19:32 [facility] RDW-CV 12.3 <14.7 % 10/02/2020 19:32 [facility] RDW-SD 39.6 <50.4 fl 10/02/2020 19:32 [facility] PLT 355 141 - 377 K/cmm 10/02/2020 19:32 [facility] MPV 9.2(L) 9.5 - 12.7 fl 10/02/2020 19:32 [facility] % Neutrophils 57.2 % 10/02/2020 19:32 [facility] % Lymphocytes 32.1 % 10/02/2020 19:32 [facility] % Monocytes 9.0 % 10/02/2020 19:32 [facility] % Eosinophils 0.8 % 10/02/2020 19:32 [facility] % Basophils 0.5 % 10/02/2020 19:32 [facility] % Immature Grans 0.4 % 10/03/19 19:32 [facility] Absolute Neutrophils 7.62 2.20 - 8.85 K/cmm 10/02/2020 19:32 [facility] Absolute Lymphocytes 4.27(H) 1.09 - 3.30 K/cmm 10/02/2020 19:32 [facility] Absolute Monocytes 1.19(H) 0.10 - 0.80 K/cmm 10/02/2020 19:32 [facility] Absolute Eosinophils 0.10 0.03 - 0.61 K/cmm 10/02/2020 19:32 EDT [facility] ABS Basophils 0.06 0.01 - 0.11 K/cm 10/02/2020 19:32 EDT [facility] Absolute Immature Grans 0.05 0.00 - 0.06 K/cmm 10/02/2020 19:32 EDT [facility] Type of Differential: Auto 10/02/2020 19:32 EDT [facility] Blood VENOUS BLOOD / Unknown Venipuncture / Unknown 10/02/2020 19:10 EDT 10/02/2020 19:15 EDT Jonas Ambrosio MD PACKAGES & DNA PROBE ORDERABLES Performing Organization Address City/State/[facility] Co de Phone Number [facility] [address] [place] [address] * EKG 12-LEAD (10/02/2020 19:04 EDT) 10/02/2020 19:0 4 EDT Narrative [facility] EKG - 10/27/2020 16:30 EDT ?[facility] Emergency ? Test Date: ?2020-10-02 Pat Name: ? CRISTY LUO ?Department: ?? ED ? Room: ? AC06 Gender: ? Female ? Electric Motorman: ?? [id number] : ?1985 ? Requested By: BO JONAS Santizo Order Number: [id number] ? Reading : ?? CINDY SNYDER MD ? Measurements Intervals ?[place] ? Rate: ? 92 ? P: ?59 [place]: ? 155 ?QRS: ?10 QRSD: ? 91 ? T: ?0 QT: ? 356 ? QTc: ?442 ? Interpretive Statements SINUS RHYTHM Compared to ECG 10/02/2020 19:04:21 No significant changes I reviewed the tracing and have either agreed or edited the findings in this report. Electronically Signed On 10-27-2020 16:30:39 EDT by CINDY SNYDER MD. Procedure Note Cindy Snyder Jr., MD - 10/27/2020 [facility] Emergency Test Date: 2020-10-02 Pat Name: CRISTY LUO Department: ED Room: [facility] Gender: Female Electric Motorman: [id number] : 1985 Requested By: BO Santizo Order Number: [id number] Reading MD: CINDY SNYDER MD Measurements Intervals [place] Rate: 92 P: 59 [place]: 155 QRS: 10 QRSD: 91 T: 0 QT: 356 QTc: 442 Interpretive Statements SINUS RHYTHM Compared to ECG 10/02/2020 19:04:21 No significant changes I reviewed the tracing and have either agreed or edited the findings inthis report. Electronically Signed On 10-27-2020 16:30:39 EDT by CINDY SANDOVAL. Jonas Ambrosio MD CARDIAC ECG ORDERABL ES [facility] EKG * (ABNORMAL) COMPREHENSIVE METABOLIC PANEL (CMP) (10/01/2020 11:51 EDT) Sodium 139 136 - 145 mEq/L 10/02/2020 19:47 [facility] Potassium 3.5 3.5 - 5.0 mEq/L 10/02/2020 19:47 [facility] Comment: NOTE: Interpret with caution. Prolonged sample storage may alter the result. Chloride 97 96 - 110 mEq/L 10/02/2020 19:47 [facility] CO2 Total 23 22 - 32 mEq/L 10/02/2020 19:47 [facility] Comment: NOTE: Interpret with caution. Prolonged sample storage may alter the result. Glucose 221(H) 70 - 100 mg/dL 10/02/2020 19:47 [facility] BUN 13 10 - 26 mg/dL 10/02/2020 19:47 [facility] Creatinine 0.50(L) 0.52 - 1.04 mg/dL 10/02/2020 19:47 [facility] eGFR 126 >60 mL/min/1.7 3m2 10/02/2020 19:47 [facility] Comment:eGFR calculated gil curtis CKD-EPI equation for non- Americans. Multiply eGFR by 1.16 for patients. Total Protein 6.6 6.3 - 8.2 g/dL 10/02/2020 19:47 T [facility] Albumin 4.1 3.4 - 4.9 g/dL 10/02/2020 19:47 [facility] Alkaline Phosphatase 86 38 - 126 U/L 10/02/2020 19:47 [facility] AST 31 15 - 46 U/L 10/02/2020 19:47 T [facility] ALT 24 <35 U/L 10/02/2020 19:47 [facility] Bilirubin, Total 0.5 <1.4 mg/dL 10/03/19 19:47 T [facility] Calcium 9.6 8.5 - 10.5 mg/dL 10/02/2020 19:47 [facility] Calculated Calcium 9.5 8.5 - 10.5 mg/dL 10/02/2020 19:47 T [facility] Blood VENOUS BLOOD / Unknown Venipuncture / Unknown 10/01/2020 11:51 EDT 10/01/2020 11:57 EDT Beverly Marvin MD CHEMISTRY & BLOOD GAS ORDERABLES Performing Organization Address City/[facility] Co de Phone Number [facility] [address] [place] [address] * LIPASE (10/01/2020 11:51 EDT) Lipase 174 <251 U/L 10/02/2020 19:46 EDT [facility] Blood VENOUS BLOOD / Unknown Venipuncture / Unknown 10/01/2020 11:51 EDT 10/01/2020 11:57 EDT Beverly Marvin MD CHEMISTRY & BLOOD GAS ORDERABLES Performing Organization Address [facility] Co de Phone Number [facility] [address] [place] [address] documented in this encounter Visit Diagnoses Diagnosis [...] X1, 1 dose, On Renee 10/02/20 at [id number] (Given - Provider: Fermin Ramirez RN) electrolyte-A [...] 1 10/03/2020 DRIVING INSTRUCTIONS 1 10/03/2020 NOTIFY BINGO USHER 1 10/02/2020 Admission Count Last Ordered Date [...]
--- OUTSIDE RECORDS SUMMARY | 2024-02-10 01:20 | XMS_ITS | Encounter Summary ---
Author Organization [facility] Address [address] [place] [address] Care Team Providers Care Crystalizer Operator Name Role Phone Unavailable Primary Care [...] [facility] Adult Primary Care - [address] [phone] Carrington Calderon MD [address] [phone] 02/27/2024 8:30 EDT Telemedicine [facility] Sleep Program - [address] [phone] Dwight Colbert [address] [place] [phone] 02/29/2024 10:30 EDT Appointment [facility] Radiology Nuclear Medicine and PET - [address] [phone] 02/29/2024 14:30 EDT Appointment [facility] Radiology Nuclear Medicine and PET - [address] [id number] 03/01/2024 8:00 EDT [facility] Radiology Nuclear Medicine and PET - [address] [id number] 03/01/2024 9:30 EDT [facility] - [address] [phone] documented as of this encounter Visit Diagnoses Not on filedocumented in this encounter
--- OUTSIDE RECORDS SUMMARY | 2024-02-10 01:20 | XMS_ITS | Encounter Summary ---
Author Organization [facility] Address [address] [place] [address] Care Team Providers Care Gluer And Wedger Name Role Phone Unavailable Primary Care Provider [...] 7:17 EDT - 09/30/2020 12:44 EDT Emergency [facility] Emergency Department - Main [address] [id number] Doris Moreno MD 111 [facility], Level 1 [place] [address] Gastroparesis (Primary Dx); Non-intractable vomiting, [...] be sent through Care Everywhere. * Gastroparesis ([place]) * Nausea and Vomiting ([place]) documented in this encounter Medications at Time [...] FLORA 2 READER) mis 1 Device by [facility] [place] (non-drug; combo route) route [...] medical conditions at the [facility] on 09/30/2020 Scribe attestation: This documentation [...] Glucose, POC 316 (*) Final Tech ID [id number] Final HN LAB POC COMMENT (GLUCOSE) Test Performed by Nursing Services Final POCT BLOOD GAS, EG6 I-STAT - Abnormal pH, i-STAT 7.53 (*) Final pCO2, i-STAT 35 Final pO2, i-STAT 34 (*) Final TCO2, i-STAT 30 (*) Final O2 Saturation, i-STAT 74 (*) Final Base Excess, i-STAT 6 (*) Final Sample Source VENOUS Final Tech ID [id number] Final Comment (EG6) Final Value: Test Performed by Respiratory. For non-arterial reference ranges, please see ISTAT procedure POCT GLUCOSE, INTERFACED - Abnormal Glucose, POC 210 (*) Final Tech ID [id number] Final HN LAB POC COMMENT (GLUCOSE) Test Performed by Nursing Services Final POCT GLUCOSE, INTERFACED - Abnormal Glucose, POC 202 (*) Final Tech ID [id number] Final HN LAB POC COMMENT (GLUCOSE) Test [...] [facility] Adult Primary Care [address] [phone] Carrington Calderon MD [address] [phone] 02/27/2024 8:30 EDT Telemedicine [facility] Sleep Program - [address] [address] Dwight Colbert [address] [place] [address] [phone] 02/29/2024 10:30 EDT Appointment [facility] Radiology Nuclear Medicine and PET [address] [phone] 02/29/2024 14:30 EDT Appointment [facility] Radiology Nuclear Medicine and PET [address] 938171 03/01/2024 8:00 EDT Appointment [facility] Radiology Nuclear Medicine and PET [address] [phone] 03/01/2024 9:30 EDT Appointment [facility] Radiology Nuclear Medicine and PET [address] [phone] documented as of this encounter Procedures Procedure [...] EDT) 10/04/2020 16:2 9 EDT Scan 2 Military Science Teacher PROCEDURE/MINOR BRAULIO GICAL ORDERABLES * (ABNORMAL) POCT GLUCOSE, INTERFACED (09/30/2020 11:30 EDT) Glucose, POC 202(H) 70 - 100 mg/dL 09/30/2020 11:31 EDT [facility] business risk consultant ID [id number] 09/30/2020 11:31 EDT [facility] HN LAB POC COMMENT (GLUCOSE) Test Performed by Nursing Services 09/30/2020 11:31 EDT [facility] Blood CAPILLARY BLOOD / Unknown 09/30/2020 11:30 EDT 09/30/2020 11:31 EDT Doris Moreno MD POINT OF CARE TEST O MARILIA Performing Organization Address City/[facility]/ZIP Co de Phone Number [facility] [address] [place] [address] * (ABNORMAL) POCT GLUCOSE, INTERFACED (09/30/2020 10:48 EDT) Glucose, POC 210(H) 70 - 100 mg/dL 09/30/2020 11:31 EDT [facility] business risk consultant ID [id number] 09/30/2020 11:31 EDT [facility] HN LAB POC COMMENT (GLUCOSE) Test Performed by Nursing Services 09/30/2020 11:31 EDT [facility] Blood CAPILLARY BLOOD / Unknown 09/30/2020 10:48 EDT 09/30/2020 11:31 EDT Doris Moreno MD POINT OF CARE TEST O MARILIA Performing Organization Address [facility] Co de Phone Number [facility] [address] [place] [address] * TROPONIN I (09/30/2020 8:55 EDT) Troponin I (ng/mL) <0.034 <0.034 ng/mL 09/30/2020 9:24 EDT [facility] Blood VENOUS BLOOD / Unknown Venipuncture / Unknown 09/30/2020 8:55 EDT 09/30/2020 8:58 EDT Narrative [facility] - 09/30/2020 9:24 EDT The results of this assay can be falsely lowered due to the consumption of Biotin. Doris Moreno MD CHEMISTRY & BLOOD GA S ORDERABLES Performing Organization Address City/[facility]/ZIP Co de Phone Number [facility] [address] [place] [address] * (ABNORMAL) BETA HYDROXYBUTYRATE (09/30/2020 8:45 EDT) Beta Hydroxybutyrate 0.7(H) <0.4 mmol/L 09/30/2020 9:14 EDT [facility] Blood VENOUS BLOOD / Unknown Venipuncture / Unknown 09/30/2020 8:45 EDT 09/30/2020 8:50 EDT Doris Moreno MD CHEMISTRY & BLOOD GA S ORDERABLES [facility] [address] [place] [address] * LIPASE (09/30/2020 8:45 EDT) Lipase 108 <251 U/L 09/30/2020 9:09 EDT [facility] Blood VENOUS BLOOD / Unknown Venipuncture / Unknown 09/30/2020 8:45 EDT 09/30/2020 8:50 EDT Doris Moreno MD CHEMISTRY & BLOOD GA S ORDERABLES Performing Organization Address [facility] Co de Phone Number [facility] [address] [place] [address] * (ABNORMAL) SCREENING GLUCOSE (09/30/2020 8:45 EDT) Glucose, Screening 268(H) 70 - 100 mg/dL 09/30/2020 9:10 EDT [facility] Comment:Elevated screening g lucose value greater than 180 mg/dl, please order follow up Hemoglobin A1C. Blood VENOUS BLOOD / Unknown Venipuncture / Unknown 09/30/2020 8:45 EDT 09/30/2020 8:50 EDT Doris Moreno MD CHEMISTRY & BLOOD GA S ORDERABLES Performing Organization Address City/[facility]/ZIP Co de Phone Number [facility] [address] [place] [address] * (ABNORMAL) MAGNESIUM (09/30/2020 8:45 EDT) Magnesium 1.6(L) 1.7 - 2.8 mg/dL 09/30/2020 9:09 EDT [facility] Blood VENOUS BLOOD / Unknown Venipuncture / Unknown 09/30/2020 8:45 EDT 09/30/2020 8:50 EDT Doris Moreno MD CHEMISTRY & BLOOD GA S ORDERABLES Performing Organization Address City/[facility] Co de Phone Number [facility] [address] [place] [address] * ELECTROLYTES (09/30/2020 8:45 EDT) Sodium 144 136 - 145 mEq/L 09/30/2020 9:09 EDT [facility] Potassium 4.0 3.5 - 5.0 mEq/L 09/30/2020 9:09 EDT [facility] Chloride 104 96 - 110 mEq/L 09/30/2020 9:09 EDT [facility] CO2 Total 24 22 - 32 mEq/L 09/30/2020 9:09 EDT [facility] Blood VENOUS BLOOD / Unknown Venipuncture / Unknown 09/30/2020 8:45 EDT 09/30/2020 8:50 EDT Doris Moreno MD CHEMISTRY & BLOOD GA S ORDERABLES Performing Organization Address [facility]/ZIP Co de Phone Number [facility] [address] [place] [address] * (ABNORMAL) CREATININE (09/30/2020 8:45 EDT) Creatinine 0.43(L) 0.52 - 1.04 mg/dL 09/30/2020 9:09 EDT [facility] eGFR 132 >60 mL/min/1.7 3m2 09/30/2020 9:09 EDT [facility] Comment:eGFR calculated gil curtis CKD-EPI equation for non- Americans. Multiply eGFR by 1.16 for patients. Blood VENOUS BLOOD / Unknown Venipuncture / Unknown 09/30/2020 8:45 EDT 09/30/2020 8:50 EDT Doris Moreno MD CHEMISTRY & BLOOD GA S ORDERABLES Performing Organization Address City/[facility]/ZIP Co de Phone Number [facility] [address] [place] [address] * BUN (09/30/2020 8:45 EDT) BUN 16 10 - 26 mg/dL 09/30/2020 9:09 EDT [facility] Blood VENOUS BLOOD / Unknown Venipuncture / Unknown 09/30/2020 8:45 EDT 09/30/2020 8:50 EDT Doris Moreno MD CHEMISTRY & BLOOD GA S ORDERABLES Performing Organization Address [facility] Co de Phone Number [facility] [address] [place] [address] * XR FOOT LEFT 1-2 VIEWS (09/30/2020 [...] 7:40 EDT) Hold Hold 09/30/2020 8:47 EDT [facility] Blood VENOUS BLOOD / Unknown Venipuncture / Unknown 09/30/2020 7:40 EDT 09/30/2020 7:45 EDT Doris Moreno MD LAB INFO SERVICE AND SUPPORT & PHONE RESULT [facility] [address] [place] [address] * (ABNORMAL) COMPLETE BLOOD COUNT AND DIFFERENTIAL (09/30/2020 7:40 EDT) WBC 15.61(H) 4.00 - 12.40 K/cmm 09/30/2020 8:01 EDT [facility] RBC 4.40 3.86 - 5.04 M/cmm 09/30/2020 8:01 [facility] Hemoglobin 13.7 11.6 [...] & DNA PROBE ORDERABLES Performing Organization Address City/State/[facility] Co de Phone Number [facility] [address] [place] [address] * (ABNORMAL) POCT BLOOD GAS, EG6 I-STAT [...] VENOUS 09/30/2020 7:38 [facility] business risk consultant ID [id number] 09/30/2020 7:38 [facility] Comment (EG6) Test Performed by Respiratory. For non-arterial reference ranges, please see ISTAT procedure 09/30/2020 7:38 EDT [facility] Comment:For arterial collect ion, [...] MD POINT OF CARE TEST O RDERABLES [facility] [address] [place] [address] * EKG 12-LEAD (09/30/2020 7:29 EDT) 09/30/2020 7:29 EDT Narrative [facility] EKG - 10/04/2020 16:24 EDT ?[facility] Emergency ? Test Date: ?2020-09-30 Pat Name: ? CRISTY LUO ?Department: ?? ED ? Room: ? AC17 Gender: ? Female ? 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 [id number] : ?1985 ? Requested By: DIAN Soto: [id number] ? Reading MD: ?? CAROLINA NOYOLA MD ? Measurements Intervals ?[place] ? Rate: ? 70 ? P: ?36 ND: ? 139 ?QRS: ?10 QRSD: ? 88 [...] Note Carolina Noyola MD - 10/04/2020 [facility] Emergency Test Date: 2020-09-30 Pat Name: CRISTY KAREEM Department: ED Room: [facility] Gender: Female Wafer Production Lead Worker: [id number] : 1985 Requested By: DIAN Huizar Order Number: [id number] Reading MD: CAROLINA NOYOLA MD Measurements Intervals [place] Rate: 70 P: 36 ND: 139 QRS: 10 QRSD: 88 T: 3 QT: 418 QTc: 452 Interpretive Statements SINUS RHYTHM WITH MARKED SINUS ARRHYTHMIA Compared to ECG 08/08/2020 19:04:21 SINUS ARRHYTHMIA now present I reviewed the tracing and have either agreed or edited the findings inthis report. Electronically Signed On 10-04-2020 16:24:06 EDT by CAROLINA RICHTER. Doris Moreno MD CARDIAC ECG ORDERABL ES Performing Organization Address City/[facility]/ZIP Co de Phone Number [facility] EKG * (ABNORMAL) POCT GLUCOSE, INTERFACED (09/30/2020 7:25 EDT) Glucose, POC 316(H) 70 - 100 mg/dL 09/30/2020 7:29 EDT [facility] business risk consultant ID [id number] 09/30/2020 7:29 EDT [facility] HN LAB POC COMMENT (GLUCOSE) Test Performed by Nursing Services 09/30/2020 7:29 EDT [facility] Blood CAPILLARY BLOOD / Unknown 09/30/2020 7:25 EDT 09/30/2020 7:29 EDT Doris Moreno MD POINT OF CARE TEST O RDERABLES Performing Organization Address City/[facility]/ZIP Co de Phone Number [facility] [address] [place] [address] documented in this encounter Visit Diagnoses Diagnosis [...]
--- OUTSIDE RECORDS SUMMARY | 2024-02-10 01:20 | XMS_ITS | Encounter Summary ---
Author Organization [facility] Address [address] [place] [address] Care Team Providers Care Political Anthropologist Name Role Phone Unavailable Primary Care Provider [...] 11:05 EDT - 10/01/2020 15:04 EDT Emergency [facility] Emergency Department - Main [place] [address] [place], [place] [phone] Aubrey Javed, MARY [address] [place], [place] [id number] Non-intractable vomiting with nausea, unspecified vomiting type [...] hyperglycemia, with long-term current use of insulin ([facility]) Use 1 pen needle as [...] Notes * Aubrey Javed PA-C - 10/01/2020 8380 EDT DOS: 10/01/2020 Chief Complaint Patient presents [...] hot showers, but is 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 Patient [...] gotten relief with outpatient oral Haldol from [facility]. patient is currently not vomiting [...] her symptoms to resolve if this is [facility]. She will return for uncontrolled [...] the Emergency Department: Stable PCP: Tonja Alejandro [facility] Number of Diagnoses or Management Options Amount [...] [facility] Adult Primary Care [address] [address] Carrington Calderon MD 1 [facility] 1 [place] [address] 02/27/2024 8:30 EDT Telemedicine [facility] Sleep Program - [address] [phone] Dwight Colbert [address] [place] [address] 02/29/2024 10:30 EDT Appointment [facility] Radiology Nuclear Medicine and [address] [phone] 02/29/2024 14:30 EDT Appointment [facility] Radiology Nuclear Medicine and [address] [phone] 03/01/2024 8:00 EDT Appointment [facility] Radiology Nuclear Medicine and [address] [phone] 03/01/2024 9:30 EDT Appointment [facility] Radiology Nuclear Medicine and [address] [address] documented as of this encounter Procedures Procedure Name Priority Date/Time Associated Diagnosis Comments COMPLETE BLOOD COUNT AND DIFFERENTIAL STAT 10/01/2020 11:51 EDT BASIC METABOLIC PANEL (BMP) STAT 10/01/2020 11:51 EDT POCT GLUCOSE, INTERFACED Routine 10/01/2020 11:14 EDT documented in this encounter Results * (ABNORMAL) COMPLETE BLOOD COUNT AND DIFFERENTIAL (10/01/2020 11:51 EDT) [facility] Signature WBC 14.04(H) 4.00 - 12.40 K/cmm 10/01/2020 12:28 EDT [facility] RBC 4.42 3.86 - 5.04 M/cmm 10/01/2020 12:28 [facility] Hemoglobin 14.1 11.6 - 15.2 gm/dL 10/01/2020 12:28 [facility] HCT 38.2 34.9 - 44.4 % 10/01/2020 12:28 [facility] MCV 86 81 - 98 fl 10/01/2020 12:28 [facility] MCH 31.9 26.7 - 33.3 pg 10/01/2020 12:28 [facility] MCHC 36.9(H) 32.1 - 35.9 gm/dL 10/01/2020 12:28 [facility] RDW-CV 12.4 <14.7 % 10/01/2020 12:28 [facility] RDW-SD 39.3 <50.4 fl 10/01/2020 12:28 [facility] PLT 380(H) 141 - 377 K/cmm 10/01/2020 12:28 [facility] MPV 9.6 9.5 - 12.7 fl 10/01/2020 12:28 [facility] % Neutrophils 71.0 % 10/01/2020 12:28 [facility] % Lymphocytes 21.1 % 10/01/2020 12:28 [facility] % Monocytes 6.9 % 10/01/2020 12:28 [facility] % Eosinophils 0.2 % 10/01/2020 12:28 [facility] % Basophils 0.4 % 10/01/2020 12:28 [facility] % Immature Grans 0.4 % 10/02/19 12:28 [facility] Absolute Neutrophils 9.97(H) 2.20 - 8.85 K/cmm 10/01/2020 12:28 [facility] Absolute Lymphocytes 2.96 1.09 - 3.30 K/cmm 10/01/2020 12:28 [facility] Absolute Monocytes 0.97(H) 0.10 - 0.80 K/cmm 10/01/2020 12:28 [facility] Absolute Eosinophils 0.03 0.03 - 0.61 K/cmm 10/01/2020 12:28 [facility] ABS Basophils 0.06 0.01 - 0.11 K/cmm 10/01/2020 12:28 [facility] Absolute Immature Grans 0.05 0.00 - 0.06 K/cmm 10/01/2020 12:28 [facility] Type of Differential: Auto 10/01/2020 12:28 [facility] Blood VENOUS BLOOD / Unknown Venipuncture / Unknown 10/01/2020 11:51 EDT 10/01/2020 11:57 EDT Aubrey Javed PA-C PACKAGES & DNA PROBE ORDERABLES [facility] [address] [place] [address] * (ABNORMAL) BASIC METABOLIC PANEL (BMP) (10/01/2020 11:51 EDT) Sodium 138 136 - 145 mEq/L 10/01/2020 12:23 [facility] Potassium 3.5 3.5 - 5.0 mEq/L 10/01/2020 12:23 [facility] Chloride 98 96 - 110 mEq/L 10/01/2020 12:23 [facility] CO2 Total 27 22 - 32 mEq/L 10/01/2020 12:23 [facility] Glucose 218(H) 70 - 100 mg/dL 10/01/2020 12:23 [facility] Calcium 9.4 8.5 - 10.5 mg/dL 10/01/2020 12:23 [facility] Calculated Calcium 9.3 8.5 - 10.5 mg/dL 10/01/2020 12:23 [facility] BUN 13 10 - 26 mg/dL 10/01/2020 12:23 EDT [facility] Creatinine 0.52 0.52 - 1.04 mg/dL 10/01/2020 12:23 EDT [facility] eGFR 124 >60 mL/min/1.7 3m2 10/01/2020 12:23 EDT [facility] Comment:eGFR calculated gil curtis CKD-EPI equation for non- Americans. Multiply eGFR by 1.16 for patients. Blood VENOUS BLOOD / Unknown Venipuncture / Unknown 10/01/2020 11:51 EDT 10/01/2020 11:57 EDT Aubrey Javed PA-C CHEMISTRY & BLOOD GA S ORDERABLES Performing Organization Address [facility] Co de Phone Number [facility] [address] [place] [address] * (ABNORMAL) POCT GLUCOSE, INTERFACED (10/01/2020 11:14 EDT) [facility] Signature Glucose, POC 167(H) 70 - 100 mg/dL 10/01/2020 11:15 EDT [facility] director of culture ID [id number] 10/01/2020 11:15 EDT [facility] HN LAB POC COMMENT (GLUCOSE) Test Performed by Nursing Services 10/01/2020 11:15 EDT [facility] Blood CAPILLARY BLOOD / Unknown 10/01/2020 11:14 EDT 10/01/2020 11:15 EDT Aubrey Javed PA-C POINT OF CARE TEST O RDERABLES Performing Organization Address [facility] Co de Phone Number [facility] [address] [place] [address] documented in this encounter Visit Diagnoses Diagnosis [...]
--- OUTSIDE RECORDS SUMMARY | 2024-02-10 01:20 | XMS_ITS | Encounter Summary ---
Author Organization [facility] Address [address] [place] [address] Care Team Providers Care Lean Consultant Name Role Phone Unavailable Primary Care [...] [facility] Adult Primary Care - [address] [phone] Carrington Calderon MD 1 [facility] 1 [place] [address] 02/27/2024 8:30 EDT Telemedicine [facility] Sleep Program - [address] 484161 Dwight Colbert [address] [place] [phone] 02/29/2024 10:30 EDT Appointment [facility] Radiology Nuclear Medicine and PET - [address] [phone] 02/29/2024 14:30 EDT Appointment [facility] Radiology Nuclear Medicine and PET - [address] [address] 03/01/2024 8:00 EDT [facility] Radiology Nuclear Medicine and PET - [address] [address] 03/01/2024 9:30 EDT [facility]ointment [facility] Radiology Nuclear Medicine and PET - [address] [address] documented as of this encounter Visit Diagnoses Not on filedocumented in this encounter
--- OUTSIDE RECORDS SUMMARY | 2024-02-10 01:20 | XMS_ITS | Encounter Summary ---
Author Organization [facility] Address [address] [place] [address] Care Team Providers Care Calliope Player Name Role Phone Unavailable Primary Care Provider Unavailabl e Reason for Visit * Reason Onset Date Comments Labs Only 09/12/2020 Encounter Details Date Type Department Care Team (Late st Contact Info) Description 09/12/2020 Telephone [facility] Adult Primary Care - [place] [address] [place], [place] [phone] James Partida, RN Labs Only Social History [...] [facility] - [address] [phone] Carrington Calderon MD [address] [phone] 02/27/2024 8:30 EDT Telemedicine [facility] Sleep Program - [address] [phone] Dwight Colbert [address] [place] [phone] 02/29/2024 10:30 EDT [facility] PET - [address] [phone] 02/29/2024 14:30 EDT [facility] and PET - [address] [phone] 03/01/2024 8:00 EDT Appointment [facility] Radiology Nuclear Medicine and PET - [address] [phone] 03/01/2024 9:30 EDT Appointment [facility] Radiology Nuclear Medicine and PET [address] [phone] documented as of this encounter Visit Diagnoses Not on filedocumented in this encounter
--- OUTSIDE RECORDS SUMMARY | 2024-02-10 01:20 | XMS_ITS | Encounter Summary ---
Author Organization [facility] Address [address] [place] [address] Care Team Providers Care Supervisor Dehydrogenation Name Role Phone Unavailable Primary Care Provider [...] [facility] Adult Primary Care - [address] [phone] Carrington Calderon MD [address] [phone] 02/27/2024 8:30 EDT Telemedicine [facility] Sleep Program - [address] [phone] Dwight Colbert [address] [place] [address] [phone] 02/29/2024 10:30 EDT Appointment [facility] Radiology Nuclear Medicine and PET - [address] [phone] 02/29/2024 14:30 EDT Appointment [facility] Radiology Nuclear Medicine and PET - [address] [address] 03/01/2024 8:00 EDT [facility]ointment [facility] Radiology Nuclear Medicine and PET - [address] [address] 03/01/2024 9:30 EDT [facility] - [address] [address] documented as of this encounter Visit Diagnoses Not on filedocumented in this encounter
--- OUTSIDE RECORDS SUMMARY | 2024-02-10 01:20 | XMS_ITS | Encounter Summary ---
Author Organization [facility] Address [address] [place] [address] Care Team Providers Care Burglar Alarm Installer Name Role Phone Unavailable Primary Care Provider Unavailabl e Reason for Visit * Reason Onset Date Comments Medications Refill 10/01/2020 Encounter Details Date Type Department Care Team (Late st Contact Info) Description 10/01/2020 Refill [facility] Adult Primary Care - [address] [address] Tonja Alejandro PA-C [address] [place] [address] [place] [phone] Medications Refill Social History Tobacco Use [...] EDT Medication(s) Requested: metoclopramide HCI Preferred Pharmacy: [facility] #[id number] [place] RTE 7 Is patient out of [...] [facility] - [address] 307761 Carrington Calderon MD 1 [facility] 1 [place] [address] 02/27/2024 8:30 EDT Telemedicine [facility] Sleep Program - [address] [phone] Dwight Colbert [address] [place] [address] [phone] 02/29/2024 10:30 EDT Appointment [facility] Radiology Nuclear Medicine and PET - [address] [phone] 02/29/2024 14:30 EDT Appointment [facility] Radiology Nuclear Medicine and PET - [address] [id number] 03/01/2024 8:00 EDT Appointment [facility] Radiology Nuclear Medicine and PET - [address] 242141 03/01/2024 9:30 EDT Appointment [facility] Radiology Nuclear Medicine and PET [address] [phone] documented as of this encounter Visit Diagnoses Not on filedocumented in this encounter
--- OUTSIDE RECORDS SUMMARY | 2024-02-10 01:20 | XMS_ITS | Encounter Summary ---
Author Organization [facility] Address [address] [place] [address] Care Team Providers Care Child Psychiatrist Name Role Phone Unavailable Primary Care Provider Unavailabl e Reason for Visit * Reason Comments Follow-up Encounter Details Date Type Department Care Team (Latest Contact Info) Description 09/15/2020 9:45 EDT Office Visit [facility] Adult Primary Care - [address] 538211 Tonja Alejandro PA-C [address] [place] [address] [address] [place] [address] Type 2 diabetes mellitus with hyperosmolarity without coma, with long-term current use of insulin ([facility]) (Primary Dx); Gastroparesis; Chronic bilateral thoracic [...] Patient reports that she followed up with [facility] and underwent a laparoscopic bilateral salpingectomy on [...] She has done physical therapy in [place] specifically pool therapy in the past. She also reports that she has a lot of excessive skin from her weight loss. She thinks that these pulls on the back muscles. She is interested in the future of possibly getting skin removal. Patient reports that on Tuesday she is traveling out to [place] prior self. She has severe anxiety whenit [...] Anxiety regarding this upcoming airplane flight to [place] -patient already has a prescription for lorazepam, [...] place for injection therapy. Tonja Alejandro PA-C [facility] 09/15/2020 9:59 I spent a total of [...] [facility] Adult Primary Care - [address] 159801 Carrington Calderon MD [address] [phone] 02/27/2024 8:30 EDT Telemedicine [facility] Sleep Program - [address] 977371 Dwight Colbert [address] [place] [address] [phone] 02/29/2024 10:[address] [facility] Radiology Nuclear Medicine and PET - [address] [phone] 02/29/2024 14:[address] [facility] Radiology Nuclear Medicine and PET [address] [phone] 03/01/2024 8:[address] [facility] Radiology Nuclear Medicine and PET [address] [phone] 03/01/2024 9:[address] [facility] Radiology Nuclear Medicine and PET - [address] [phone] documented as of this encounter Visit Diagnoses Diagnosis Type 2 diabetes mellitus with hyperosmolarity without coma, with long-term current use of insulin ([facility])- Primary Gastroparesis Chronic bilateral thoracic back pain Lumbar pain Lumbago documented in this encounter
--- OUTSIDE RECORDS SUMMARY | 2024-02-10 01:20 | XMS_ITS | Encounter Summary ---
Author Organization [facility] Address [address] [place] [address] Care Team Providers Care Msw Name Role Phone Unavailable Primary Care Provider Unavailabl e Reason for Visit * Reason Onset Date Comments Coordination Of Care 10/01/2020 Patient arturo ding to ED Encounter Details Date Type Department Care Team (Late st Contact Info) Description 10/01/2020 Telephone [facility] Adult Primary Care - [address] [phone] Tonja Alejandro PA-C [address] [place] [address] [place] [phone] Coordination Of Care (Patient heading to [...] doing well. She did fly out to [place] to visit her family and came back. [...] [facility] Adult Primary Care - [address] [phone] Carrington Calderon MD [address] [phone] 02/27/2024 8:30 EDT Telemedicine [facility] Sleep Program - [address] [address] Dwight Colbert [address] [place] [address] 02/29/2024 10:30 ED[facility] Nuclear Medicine and PET - [address] [address] 02/29/2024 14:30 EDT [facility] Rad[facility] Nuclear Medicine and PET - [address] [phone] 03/01/2024 8:00 EDT Appointment [facility] Radiology Nuclear Medicine and PET - [address] 258931 03/01/2024 9:[address] [facility] Radiology Nuclear Medicine and PET - [address] [address] documented as of this encounter Visit Diagnoses [...]
--- OUTSIDE RECORDS SUMMARY | 2024-02-10 01:21 | XMS_ITS | Encounter Summary ---
Author Organization [facility] Address [address] [place] [address] Care Team Providers Care Ironworker Wire Fence Erector Name Role Phone Unavailable Primary Care Provider Unavailabl e Reason for Visit * Reason Comments Hospital Discharge Follow Up Encounter Details Date Type Department Care Team (Latest Contact Info) Description 08/14/2020 9:00 EST Office Visit [facility] Adult Primary Care - [address] 790871 Tonja Alejandro PA-C [address] [place] [address] [address] [place] [address] Type 2 diabetes mellitus with hyperosmolarity without coma, with long-term current use of insulin ([facility]) (Primary Dx); Gastroparesis Social History Tobacco [...] Follow Up 1 month Tonja Alejandro PA-C [facility] 08/19/2020 9:13 I spent a total of [...] Office Visit [facility] Adult Primary Care [address] 846011 Carrington Calderon MD 1 [facility] Level 1 [place] [phone] 02/27/2024 8:30 EDT Telemedicine [facility] Sleep Program - [address] [place] [address] Dwight Colbert [address] [place] [address] 02/29/2024 10:30 EDT Appointment [facility] Radiology Nuclear Medicine and PET - [address] [address] 02/29/2024 14:30 EDT Appointment [facility] Radiology Nuclear Medicine and PET - [address] 320031 03/01/2024 8:00 EDT Appointment [facility] Radiology Nuclear Medicine and PET - [address] 304121 03/01/2024 9:30 EDT Appointment [facility] Radiology Nuclear Medicine and PET - [address] [address] documented as of this encounter Visit Diagnoses Diagnosis Type 2 diabetes mellitus with hyperosmolarity without coma, with long-term current use of insulin ([facility])- Primary Gastroparesis documented in this encounter Discontinued Medications Medication Sig Discontinue Reason Start Date End Da te LORazepam (ATIVAN) 0.5 mg tablet Take 1 Tab by mouth 3 times daily as needed for Anxiety. Daily Max: 1.5 mg Reorder 08/07/2020 08/14/2020 documented as of this encounter
--- OUTSIDE RECORDS SUMMARY | 2024-02-10 01:21 | XMS_ITS | Encounter Summary ---
Author Organization [facility] Address [address] [place] [address] Care Team Providers Care Ethnic Studies Professor Name Role Phone Unavailable Primary Care Provider Unavailabl e Reason for Visit * Reason Onset Date Comments Medications Refill 09/02/2020 Encounter Details Date Type Department Care Team (Late st Contact Info) Description 09/02/2020 Refill [facility] Endocrinology - [facility] [address] [place], [place] [phone] Sara Zafar NP 62 [facility] [address] [place] [address] Medications Refill Social History Tobacco [...] her last appointment. Screw on tips. Pharmacy [facility][id number] - [place], [place] - [facility] [address]?[phone] Next Visit Date Visit date not found Out of Medication? Yes none left Valencia Correia 09/02/2020 12:44 documented in this encounter Plan of Treatment Upcoming Encounters Date Type Department Care Team (Late st Contact Info) Description 02/21/2024 9:45 EDT Office Visit [facility] Adult Primary Care - [address] 416481 Carrington Calderon MD [address] [address] 02/27/2024 8:30 EDT Telemedicine [facility] Sleep Program - [address] [address] Dwight Colbert [address] [place] [address] [phone] 02/29/2024 10:30 EDT Appointment [facility] Radiology Nuclear Medicine and PET - [address] 128061 02/29/2024 14:30 EDT Appointment [facility] Radiology Nuclear Medicine and PET - [address] 694331 03/01/2024 8:00 EDT Appointment [facility] Radiology Nuclear Medicine and PET - [address] [phone] 03/01/2024 9:30 EDT Appointment [facility] Radiology Nuclear Medicine and PET - [address] [phone] documented as of this encounter Visit Diagnoses Diagnosis Type 2 diabetes mellitus with hyperglycemia, with long-term current use of insulin ([facility])- Primary documented in this encounter
--- OUTSIDE RECORDS SUMMARY | 2024-02-10 01:21 | XMS_ITS | Encounter Summary ---
Author Organization [facility] Address [address] [place] [address] Care Team Providers Care Miner Operator Name Role Phone Unavailable Primary Care Provider Unavailabl e Reason for Visit * Reason Onset Date Comments New/Evolving Symptoms 08/07/2020 Encounter Details Date Type Department Care Team (Late st Contact Info) Description 08/07/2020 Telephone [facility] Adult Primary Care [address] 048161 Tonja Alejandro PA-C [address] [place] [address] [place] [phone] New/Evolving Symptoms Social History Tobacco Use [...] - Angelica Blanco, - 08/07/2020 1916 EST director call message: Patient's Fermin called several hours after [...] trouble swallowing. I spoke with GI attending hospital personnel director. Recommendations included going to the ER if [...] [facility] Adult Primary Care - [address] 469731 Carrington Calderon MD [address] [address] 02/27/2024 8:30 EDT Telemedicine [facility] Sleep Program - [address] 893031 Dwight Colbert [address] [place] [address] [phone] 02/29/2024 10:30 EDT Appointment [facility] Radiology Nuclear Medicine and PET [address] 385141 02/29/2024 14:30 EDT Appointment [facility] Radiology Nuclear Medicine and PET [address] 701591 03/01/2024 8:00 EDT Appointment [facility] Radiology Nuclear Medicine and PET [address] 432911 03/01/2024 9:30 EDT Appointment [facility] Radiology Nuclear Medicine and PET [address] [phone] documented as of this encounter Visit Diagnoses Not on filedocumented in this encounter
--- OUTSIDE RECORDS SUMMARY | 2024-02-10 01:21 | XMS_ITS | Encounter Summary ---
Author Organization [facility] Address [address] [place] [address] Care Team Providers Care Cordwood Cutter Name Role Phone Unavailable Primary Care Provider Unavailabl e Encounter Details Date Type Department Care Team (Latest Contact Info) Description 08/18/2020 16:20 EDT Phlebotomy Only [facility] - [employer] [address] [place] [address] Encounter for preprocedure screening laboratory testing for [...] [facility] Adult Primary Care - [address] [phone] Carrington Calderon MD 1 [facility] 1 [place] [phone] 02/27/2024 8:30 EDT Telemedicine [facility] Sleep Program - [address] [phone] Dwight Colbert [address] [place] [address] [phone] 02/29/2024 10:30 EDT Appointment [facility] Radiology Nuclear Medicine and PET - [address] [phone] 02/29/2024 14:30 EDT Appointment [facility] Radiology Nuclear Medicine and PET [address] [address] 03/01/2024 8:00 EDT Appointment [facility] Radiology Nuclear [facility] and [address] [address] 03/01/2024 9:30 EDT Appointment [facility] Radiology Nuclear [facility] and [address] [address] documented as of this encounter Procedures Procedure Name Priority Date/Time Associated Diagnosis Comments [facility]COVID-19 TEST [facility] 08/18/2020 16:23 EDT Encounter for preprocedure screening laboratory testing for COVID-19 COVID-19 TESTING STAT 08/18/2020 16:2 3 EDT Encounter for preprocedure screening laboratory testing for COVID-19 documented in this encounter Results * COVID-19 [facility] (08/18/2020 16:23 EDT) Swab ENTIRE NASOPHARYNX / Unknown Swab / Unknown 08/18/2020 16:23 EDT 08/18/2020 16:23 EDT Nimisha Bay MD MICROBIOLOGY - [facility] ORDERABLES [facility] LABORATORY SERVICES [address] [place] [address] * COVID-19 TESTING (08/18/2020 16:23 EDT) COVID-19 [...] developed and its performance characteristics determined by [facility]. It has not been cleared [...] testing. This test is based on the [facility] COVID-19 Emergency Use Authorization (EUA) assay, with minor modification as defined by the FDA Performed on the [employer] 7 Flex RT-PCR System. Performing Lab [facility] Lab 08/19/2020 15:57 EDT [facility] LABORATORY SERVICES Swab ENTIRE NASOPHARYNX / Unknown Swab / Unknown 08/18/2020 16:23 EDT 08/18/2020 16:23 EDT Nimisha Bay MD MICROBIOLOGY - [facility] ORDERABLES [facility] LABORATORY SERVICES [address] [place] [address] documented in this encounter Visit Diagnoses Diagnosis Encounter for preprocedure screening laboratory testing for COVID-19 documented in this encounter
--- OUTSIDE RECORDS SUMMARY | 2024-02-10 01:21 | XMS_ITS | Encounter Summary ---
Author Organization [facility] Address [address] [place] [address] Care Team Providers Care Air Hose Coupler Name Role Phone Unavailable Primary Care Provider Unavailabl e Reason for Visit * Auth/Cert Specialty Diagnoses / Procedures Referred By Contlesli t Referred To Contact Diagnoses Unwanted fertility Procedures RI LAP,RMV ADNEXAL STRUCTURE Nimisha Bay MD 2 [facility] Medical Office Building, [address] [place] [address] Referral ID Status Reason Start Date Expiration Date Visits Re quested Visits Authorized [id number] 06/30/2020 1 1 Encounter Details Date Type Department Care Team (Late st Contact Info) Description 08/20/2020 13:05 EDT Anesthesia Event [facility] [place] [address] [place] [address] Cece Marrufo MD [address] [phone] Jhonatan Peterson, RICA 111 [facility], Level 2 [place] [address] Anesthesia Record Procedure Summary Procedure [...] Complete vitals history is available in the [facility]. Vitals Value Taken Time BP [...] has a referral for therapy. ??? Diabetes ([facility]) A1c 10.3 on 11/28/2019 - poorly controlled ??? Diabetes mellitus, type 2 ([facility]) pt check blood sugars at home- [...] vomiting occasionally ??? Obesity, unspecified ??? Osteomyelitis ([facility]) of left great toe-s/p amputation ??? Peripheral neuropathy 08/12/20- Bilateral feet-Takes Gabapentin- pt just started this med. ??? Productive cough pt currently quitting smoking- clear secretions. ??? Spontaneous miscarriage 09/04/201502/18, 08/19. Followed by Dr. López/[facility] in [facility] Relevant Problems Neuro/Psych (+) Hx of ectopic CARDIOVASCULAR (+) Migraine with aura and without status migrainosus, not intractable ENDO/GI (+) Type 2 diabetes mellitus ([facility]) (+) Type 2 diabetes mellitus with diabetic polyneuropathy, with long-term current use of insulin ([facility]) (+) 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 ([facility]) Other (+) Osteomyelitis of [...] and Staff Patient location during procedure: OR Resident/[employer] LAYUP LINE BACK FEEDER: Jhonatan Peterson AA Performed: resident/[employer] LAYUP LINE BACK FEEDER/AA Indications and Patient Condition Indications for airway [...] [facility] - [address] 697341 Carrington Calderon MD [address] [phone] 02/27/2024 8:30 EDT Telemedicine [facility] Sleep Program [address] [phone] Dwight Colbert [address] [place] [address] [phone] 02/29/2024 10:30 EDT Appointment [facility] Radiology Nuclear Medicine and PET [address] 099201 02/29/2024 14:30 EDT Appointment [facility] Radiology Nuclear Medicine and [address] [address] 03/01/2024 8:00 EDT Appointment [facility] Radiology Nuclear [facility] and [address] [address] 03/01/2024 9:30 EDT Appointment [facility] Radiology Nuclear [facility] and [address] [address] documented as of this encounter Procedures Procedure Name Priority Date/Time Associated Diagnosis Comments ANESTHESIA INTUBATION Routine 08/20/2020 13:23 EDT documented in this encounter Results * Airway (08/20/2020 13:23 EDT) Narrative Jhonatan Peterson AA - 08/20/2020 13:23 EDT Jhonatan Peterson AA ? 08/20/2020 13:24 Airway Date/Time: 08/20/2020 13:17 Urgency: elective General Information and Staff Patient location during procedure: OR Resident/[employer] LAYUP LINE BACK FEEDER: Jhonatan Peterson AA Performed: resident/[employer] LAYUP LINE BACK FEEDER/RICA Indications and Patient Condition Indications for airway [...]
--- OUTSIDE RECORDS SUMMARY | 2024-02-10 01:21 | XMS_ITS | Encounter Summary ---
Author Organization [facility] Address [address] [place] [address] Care Team Providers Care Boat Motor Mechanic Name Role Phone Unavailable Primary Care Provider Unavailabl e Encounter Details Date Type Department Care Team (Late st Contact Info) Description 09/02/2020 Orders Only [facility] Endocrinology - [facility] [address] [place] [address] Sara Zafar, GUSTAVO 62 [facility] [address] [place] [address] Type 2 diabetes mellitus with hyperglycemia, with long-term current use of insulin ([facility]) (Primary Dx) Social History Tobacco [...] [facility] - [address] [phone] Carrington Calderon MD [address] [phone] 02/27/2024 8:30 EDT Telemedicine [facility] Sleep Program - [address] [phone] Dwight Colbert [address] [place] [address] [phone] 02/29/2024 10:30 EDT [facility] Rad[facility] Nuclear Medicine and PET - [address] [address] 02/29/2024 14:30 EDT Appointment [facility] Radiology Nuclear Medicine and PET - [address] 726341 03/01/2024 8:00 EDT Appointment [facility] Radiology Nuclear Medicine and PET - [address] [phone] 03/01/2024 9:30 EDT Appointment [facility] Radiology Nuclear Medicine and PET [address] 058111 documented as of this encounter Visit Diagnoses Diagnosis Type 2 diabetes mellitus with hyperglycemia, with long-term current use of insulin ([facility])- Primary documented in this encounter
--- OUTSIDE RECORDS SUMMARY | 2024-02-10 01:21 | XMS_ITS | Encounter Summary ---
Author Organization [facility] Address [address] [place] [address] Care Team Providers Care Gas Well Drilling Manager Name Role Phone Unavailable Primary Care Provider Unavailabl e Reason for Visit * Reason Onset Date Comments Hospital Discharge Follow Up 08/11/2020 Encounter Details Date Type Department Care Team (Late st Contact Info) Description 08/11/2020 Telephone [facility] Adult Primary Care [address] 475671 Tonja Alejandro PA-C [address] [place] [address] [place] [phone] Hospital Discharge Follow Up Social History [...] [facility] - [address] 846151 Carrington Calderon MD [address] [phone] 02/27/2024 8:30 EDT Telemedicine [facility] Sleep Program - [address] [address] Dwight Colbert [address] [place] [address] [phone] 02/29/2024 10:[address] [facility] Radiology Nuclear Medicine and PET - [address] [address] 02/29/2024 14:[address] [facility] Radiology Nuclear Medicine and PET - [address] [address] 03/01/2024 8:00 EDT Appointment [facility] Radiology Nuclear Medicine and PET - [address] [address] 03/01/2024 9:30 EDT Appointment [facility] Radiology Nuclear Medicine and PET - [address] [address] documented as of this encounter Visit Diagnoses [...]
--- OUTSIDE RECORDS SUMMARY | 2024-02-10 01:21 | XMS_ITS | Encounter Summary ---
Author Organization [facility] Address [address] [place] [address] Care Team Providers Care Internet Manager Name Role Phone Unavailable Primary Care Provider Unavailabl e Reason for Visit * Reason Onset Date Comments Paperwork request 08/29/2020 paperwork for adoption Encounter Details Date Type Department Care Team (Late st Contact Info) Description 08/29/2020 Telephone [facility] Adult Primary Care - [address] [phone] Tonja Alejandro PA-C [address] [place] [address] [place] [phone] Paperwork request (paperwork for adoption) Social [...] scheduled tomorrow west side of clinic. will grain picker paperwork then for both. * Telephone Encounter - Tonja Alejandro PA-C - 08/29/2020 1611 EDT Form filled out. Will place in [facility] box to be sent out. * Telephone [...] [facility] Adult Primary Care - [address] 645251 Carrington Caldreon MD [address] [address] 02/27/2024 8:30 EDT Telemedicine [facility] Sleep Program - [address] [phone] Dwight Colbert [address] [place] [phone] 02/29/2024 10:30 EDT Appointment [facility] Radiology Nuclear Medicine and PET - [facility] [address] [place], [place] 1369[address] 02/29/2024 14:30 EDT [facility]ointment [facility] Rad[facility] and PET - [address] 020271 03/01/2024 8:00 EDT Appointment [facility] Radiology Nuclear Medicine and PET - [address] 670451 03/01/2024 9:30 EDT [facility]ointment [facility] Radiology Nuclear Medicine and PET - [address] [address] documented as of this encounter Visit Diagnoses Not on filedocumented in this encounter
--- OUTSIDE RECORDS SUMMARY | 2024-02-10 01:21 | XMS_ITS | Encounter Summary ---
Author Organization [facility] Address [address] [place] [address] Care Team Providers Care Maintenance Leader Name Role Phone Unavailable Primary Care [...] [facility] - [address] [phone] Carrington Calderon MD [address] [phone] 02/27/2024 8:30 EDT Telemedicine [facility] Sleep Program - [address] [phone] Dwight Colbert [address] [place] [address] [phone] 02/29/2024 10:30 EDT Appointment [facility] Radiology Nuclear Medicine and PET - [address] 732391 02/29/2024 14:30 EDT Appointment [facility] Radiology Nuclear Medicine and PET - [address] [address] 03/01/2024 8:00 EDT Appointment [facility] Radiology Nuclear Medicine and PET - [address] [address] 03/01/2024 9:30 EDT [facility] - [address] [address] documented as of this encounter Visit Diagnoses Not on filedocumented in this encounter
--- OUTSIDE RECORDS SUMMARY | 2024-02-10 01:21 | XMS_ITS | Encounter Summary ---
Author Organization [facility] Address [address] [place] [address] Care Team Providers Care Minute Clerk For Basic Traffic Name Role Phone Unavailable Primary Care Provider Unavailabl e Reason for Visit * Reason Onset Date Comments Procedure 08/18/2020 Encounter Details Date Type Department Care Team (Late st Contact Info) Description 08/18/2020 Orders Only [facility] OBGYN Services - [facility] [address] [place], [place] 9565[address] Nimisha Bay MD 2 [facility] Medical Office Building, [address] [place] [address] Encounter for preprocedure screening laboratory [...] Visit [facility] Adult Primary Care - [address] 219521 Carrington Calderon MD 1 [facility] 1 [place] [phone] 02/27/2024 8:30 EDT Telemedicine [facility] Sleep Program - [address] [phone] Dwight Colbert [address] [place] [address] 02/29/2024 10:30 EDT Appointment [facility] Radiology Nuclear Medicine and PET - [address] [address] 02/29/2024 14:30 EDT Appointment [facility] Radiology Nuclear Medicine and PET [address] [id number] 03/01/2024 8:00 EDT Appointment [facility] Radiology Nuclear Medicine and PET [address] [phone] 03/01/2024 9:30 EDT Appointment [facility] Nuclear [facility] and PET [address] [address] documented as of this encounter Results * COVID-19 TESTING (08/18/2020 16:23 EDT) COVID-19 rt-PCR Result Negative Negative 08/19/2020 15:57 EDT [facility] Comment: This test has [...] developed and its performance characteristics determined by [facility]. It has not been cleared [...] testing. This test is based on the [facility] COVID-19 Emergency Use Authorization (EUA) assay, with minor modification as defined by the FDA Performed on the [employer] 7 Flex RT-PCR System. Performing Lab [facility] 08/19/2020 15:57 EDT [facility] Swab ENTIRE NASOPHARYNX / Unknown Swab / Unknown 08/18/2020 16:23 EDT 08/18/2020 16:23 EDT Nimisha Bay MD MICROBIOLOGY - [facility] ORDERABLES [facility] [address] [place] [address] documented in this encounter Visit Diagnoses Diagnosis Encounter for preprocedure screening laboratory testing for COVID-19- Primary documented in this encounter
--- OUTSIDE RECORDS SUMMARY | 2024-02-10 01:21 | XMS_ITS | Encounter Summary ---
Author Organization [facility] Address [address] [place] [address] Care Team Providers Care Government Service Executive Name Role Phone Unavailable Primary Care Provider Unavailabl e Reason for Referral * (Routine) - Receiving Office to Obtain Authorization Specialty Diagnoses / Procedures Referred By Contac t Referred To Contact [facility] Or [address] [place], [place] [phone] Referral ID Status Reason Start Date Expiration Date Visits Requested Visits Authorized [id number] Receiving Office to Obtain Authorization Specialty Services Required 1 1 1 * (Routine) - Receiving Office to Obtain Authorization Specialty Diagnoses / Procedures Referred By Contac t Referred To Contact [facility] Or [address] [place] [address] Referral ID Status Reason Start Date Expiration Date Visits Requested Visits Authorized [id number] Receiving Office to Obtain Authorization Specialty Services [...] Referred To Contact Diagnoses Unwanted fertility Procedures OR LAP,RMV ADNEXAL STRUCTURE Nimisha Bay MD 3 [facility] Medical Office Building, [address] [place] [phone] Referral ID Status Reason Start Date Expiration Date Visits Re quested Visits Authorized [id number] 06/30/2020 1 1 Encounter Details Date Type Department Care Team (Latest Contact Info) Description 08/20/2020 9:59 EDT - 08/20/2020 15:35 EDT Hospital Encounter [facility] [place] [address] [place] [address] Nimisha Bay MD [address] [place] [address] Medical Office Building, [address] [place] [phone] Discharge Disposition: Home or Self Care [...] Code Departure Means Destination Home or Self Fdc documented in this encounter Progress Notes * [...] 08/18/2020 14:27 PGY-4 Obstetrics and Gynecology Pager #[phone] documented in this encounter H&P Notes * [...] Egan D.O. 07/28/2020 11:05 Obstetrics/Gynecology PGY-1 Pager #[phone] documented in this encounter OR Notes * OR Surgeon - Nimisha Bay MD - 08/20/2020 1436 EDT Name: Cristy Luo :1985 Date of Service:@08/20/2020?? Surgeon: Dr. Nimisha Bay Cabinetmaker Supervisor:Tonja Egan D.O., Jackie Oropeza M.D. Procedure: Laparoscopy [...] Egan D.O. 08/20/2020 15:22 Obstetrics/Gynecology PGY-1 Pager #[phone] ?? Attending note: I was present for the entire procedure. No complications. Nimisha Bay MD ? documented in this encounter Plan of Treatment Upcoming Encounters Date Type Department Care Team (Late st Contact Info) Description 02/21/2024 9:45 EDT Office Visit [facility] Adult Primary Care - [address] 127241 Carrington Calderon MD [address] [address] 02/27/2024 8:30 EDT Telemedicine [facility] Sleep Program - [address] [phone] Dwight Colbert [address] [place] [phone] 02/29/2024 10:[address] [facility] Radiology Nuclear Medicine and PET - [address] [phone] 02/29/2024 14:[address] [facility] Radiology Nuclear Medicine and PET [address] [phone] 03/01/2024 8:[address] [facility] Radiology Nuclear Medicine and PET [address] [phone] 03/01/2024 9:[address] [facility] Radiology Nuclear Medicine and PET - [address] [address] Scheduled Referrals Name Type Priority Associated Diagnoses [...] dimension); full cross sections identified. 08/29/2020 7:12 [facility] Attestation There was significant resident/fellow involvement in the diagnostic evaluation of this case. By the signature below, the attending physician certifies that they have personally conducted a gross and/or microscopic examination of the described specimens and rendered or confirmed the above diagnosis. 08/29/2020 7:12 [facility] at 0712 Clinical History Unwanted fertility 08/29/2020 7:12 [facility] Gross Description A. Received [...] spear. Sectioning reveals patent, unremarkable cut surfaces. Metal Tile Setter sections, to include the bisected fimbria, are submitted in A1 (shorter tube) and A2 (longer tube). EUNICE BAEZ(ASCP) 08/21/2020 9:18 08/29/2020 7:12 EDT [facility] Resident/Cash w: John Smith MD 08/29/2020 7:12 EDT [facility] Performing Lab [facility] 08/29/2020 7:12 EDT [facility] Scanned Images 08/29/2020 7:12 EDT [facility] Tissue BOTH FALLOPIAN TUBES / Unknown 08/20/2020 13:15 EDT 08/20/2020 15:16 EDT Nimisha Bay MD PATHOLOGY ORDERABLE S Performing Organization Address [facility] Co de Phone Number [facility] [address] [place] [address] * (ABNORMAL) POCT GLUCOSE, INTERFACED (08/20/2020 11:26 EDT) Glucose, POC 119(H) 70 - 100 mg/dL 08/20/2020 11:26 EDT [facility] nib inspector ID [id number] 08/20/2020 11:26 EDT [facility] HN LAB POC COMMENT (GLUCOSE) Test Performed by Nursing Services 08/20/2020 11:26 EDT [facility] Blood CAPILLARY BLOOD / Unknown 08/20/2020 11:26 EDT 08/20/2020 11:26 EDT Whit Rae MD POINT OF CARE TEST O RDERABLES Performing Organization Address City/[facility]/ZIP Co de Phone Number [facility] [address] [place] [address] * TEST, URINE (08/20/2020 10:42 EDT) Test, Urine Negative Negative 08/20/2020 10:59 EDT [facility] Comment:False negative resul ts may occur in women who are beyond 5-8 weeks gestation. Diagnosis of should be based on a correlation of test results with typical clinical signs and symptoms. Urine VOIDED URINE SPECIMEN / Unknown Urine Collect / Unknown 08/20/2020 10:42 EDT 08/20/2020 10:46 EDT Whit Rae MD URINALYSIS ORDERABLE S [facility] [address] [place] [address] documented in this encounter Visit Diagnoses Diagnosis [...] Chavez RN)[phone] (Continued by Anesthesia - Provider: RCIA Edwards) lactated ringers (LR) infusion at 75 [...]
--- OUTSIDE RECORDS SUMMARY | 2024-02-10 01:21 | XMS_ITS | Encounter Summary ---
Author Organization [facility] Address [address] [place] [address] Care Team Providers Care Senior Engineering Associate Name Role Phone Unavailable Primary Care Provider Unavailabl e Reason for Visit * Reason Onset Date Comments Surgery Scheduling 08/19/2020 Encounter Details Date Type Department Care Team (Late st Contact Info) Description 08/19/2020 Telephone [facility] OBGYN Services - [facility] [address] [place], [place] [address] Nimisha Bay MD 2 [facility] Medical Office Building, [address] [place] [address] Surgery Scheduling Social History Tobacco [...] [facility] Adult Primary Care - [address] [address] Carrington Calderon MD 1 [facility] 1 [place] [address] 02/27/2024 8:30 EDT Telemedicine [facility] Sleep Program - [address] [phone] Dwight Colbert [address] [place] [phone] 02/29/2024 10:30 EDT Appointment [facility] Radiology Nuclear Medicine and PET - [address] [phone] 02/29/2024 14:30 EDT Appointment [facility] Radiology Nuclear Medicine and PET [address] [phone] 03/01/2024 8:00 EDT Appointment [facility] Radiology Nuclear Medicine and PET - [address] [phone] 03/01/2024 9:30 EDT Appointment [facility] Radiology Nuclear Medicine and PET - [address] [phone] documented as of this encounter Visit Diagnoses Not on filedocumented in this encounter
--- OUTSIDE RECORDS SUMMARY | 2024-02-10 01:21 | XMS_ITS | Encounter Summary ---
Author Organization [facility] Address [address] [place] [address] Care Team Providers Care Pcu Rn Name Role Phone Unavailable Primary Care Provider Unavailabl e Encounter Details Date Type Department Care Team (Late st Contact Info) Description 08/14/2020 Orders Only [facility] OBGYN Services - [address] [address] Rosa Chang RN Pre-procedure lab exam ([facility] - [address] 600031 Carrington Calderon MD [address] [phone] 02/27/2024 8:30 EDT Telemedicine [facility] Sleep Program - [address] [phone] Dwight Colbert [address] [place] [address] 02/29/2024 10:30 EDT [facility]ment [facility] Radiology Nuclear Medicine and PET - [address] [address] 02/29/2024 14:30 EDT [facility]ointment [facility] Radiology Nuclear Medicine and PET - [address] [phone] 03/01/2024 8:00 EDT Appointment [facility] Radiology Nuclear Medicine and PET - [address] [phone] 03/01/2024 9:30 EDT Appointment [facility] Radiology Nuclear Medicine and PET [address] [address] documented as of this encounter Visit Diagnoses Diagnosis Pre-procedure lab exam- Primary Pre-procedural laboratory examination documented in this encounter
--- OUTSIDE RECORDS SUMMARY | 2024-02-10 01:21 | XMS_ITS | Encounter Summary ---
Author Organization [facility] Address [address] [place] [address] Care Team Providers Care Chief Guard Name Role Phone Unavailable Primary Care Provider [...] [facility] Adult Primary Care - [address] 868111 Carrington Calderon MD [address] [phone] 02/27/2024 8:30 EDT Telemedicine [facility] Sleep Program - [address] 254391 Dwight Colbert [address] [place] [address] [phone] 02/29/2024 10:30 EDT Appointment [facility] Radiology Nuclear Medicine and PET - [address] 107091 02/29/2024 14:30 EDT Appointment [facility] Radiology Nuclear Medicine and PET - [address] [phone] 03/01/2024 8:00 EDT Appointment [facility] Radiology Nuclear Medicine and PET - [facility] [address] [place], [place] [phone] 03/01/2024 9:30 EDT Appointment [facility] Radiology Nuclear Medicine and PET - [address] [phone] documented as of this encounter Visit Diagnoses Not on filedocumented in this encounter
--- OUTSIDE RECORDS SUMMARY | 2024-02-10 01:21 | XMS_ITS | Encounter Summary ---
Author Organization [facility] Address [address] [place] [address] Care Team Providers Care Mechanical Design Engineer Products Name Role Phone Unavailable Primary Care Provider Unavailabl e Reason for Visit * Auth/Cert Specialty Diagnoses / Procedures Referred By Contac t Referred To Contact Diagnoses Unwanted fertility Procedures ND LAP,RMV ADNEXAL STRUCTURE Nimisha Bay MD [address] [place] [address] Medical Office Building, [address] [place] [address] Referral ID Status Reason Start Date Expiration Date Visits Re quested Visits Authorized [id number] 06/30/2020 1 1 Encounter Details Date Type Department Care Team (Late st Contact Info) Description 08/20/2020 12:00 EDT - 08/20/2020 14:55 EDT Surgery [facility] OR [address] [place] [address] Nimisha Bay MD [address] [place] [address] Medical Office Building, [address] [place] [address] Laparoscopic Bilateral Salpingectomy [64057 (CPT??)] Surgery Details Date/Time Status Location OR Service Patient Class Case Cl ass Case Type Trauma Case? 08/20/20 1200 Posted [facility] Outpatient [...] Code Departure Means Destination Home or Self Long Term documented in this encounter Progress Notes * [...] 08/18/2020 14:27 PGY-4 Obstetrics and Gynecology Pager #[phone] documented in this encounter H&P Notes * [...] Egan D.O. 07/28/2020 11:05 Obstetrics/Gynecology PGY-1 Pager #[phone] documented in this encounter OR Notes * OR Surgeon - Nimisha Bay MD - 08/20/2020 1436 EDT Name: Cristy Luo :1985 Date of Service:@08/20/2020?? Surgeon: Dr. Nimisha Bay Range Manager:Tonja Egan D.O., Jackie Oropeza M.D. Procedure: Laparoscopy [...] Egan D.O. 08/20/2020 15:22 Obstetrics/Gynecology PGY-1 Pager #[phone] ?? Attending note: I was present for the entire procedure. No complications. Nimisha Bay MD ? documented in this encounter Plan of Treatment Upcoming Encounters Date Type Department Care Team (Late st Contact Info) Description 02/21/2024 9:45 EDT Office Visit [facility] Adult Primary Care - [address] 774641 Carrington Calderon MD [address] [phone] 02/27/2024 8:30 EDT Telemedicine [facility] Sleep Program - [address] [phone] Dwight Colbert [address] [place] [phone] 02/29/2024 10:30 EDT Appointment [facility] Radiology Nuclear Medicine and PET - [address] [phone] 02/29/2024 14:30 EDT Appointment [facility] Radiology Nuclear Medicine and PET - [address] [address] 03/01/2024 8:00 EDT Appointment [facility] Radiology Nuclear Medicine and PET - [address] [address] 03/01/2024 9:30 EDT Appointment [facility] Radiology Nuclear Medicine and PET - [address] [address] Scheduled Referrals Name Type Priority Associated Diagnoses [...] full cross sections identified. 08/29/2020 7:12 EDT [facility] Attestation There was significant resident/fellow involvement in the diagnostic evaluation of this case. By the signature below, the attending physician certifies that they have personally conducted a gross and/or microscopic examination of the described specimens and rendered or confirmed the above diagnosis. 08/29/2020 7:12 EDT [facility] at 0712 Clinical History Unwanted fertility 08/29/2020 7:12 EDT [facility] Gross Description A. Received in [...] spear. Sectioning reveals patent, unremarkable cut surfaces. Signals Collector/Analyst sections, to include the bisected fimbria, are submitted in A1 (shorter tube) and A2 (longer tube). EUNICE BAEZ(ASCP) 08/21/2020 9:18 08/29/2020 7:12 EDT [facility] Resident/Cash w: John Smith MD 08/29/2020 7:12 EDT [facility] Performing Lab [facility] 08/29/2020 7:12 EDT [facility] Scanned Images 08/29/2020 7:12 EDT [facility] Tissue BOTH FALLOPIAN TUBES / Unknown 08/20/2020 13:15 EDT 08/20/2020 15:16 EDT Nimisha Bay MD PATHOLOGY ORDERABLE S [facility] [address] [place] [address] * (ABNORMAL) POCT GLUCOSE, INTERFACED (08/20/2020 11:26 EDT) Glucose, POC 119(H) 70 - 100 mg/dL 08/20/2020 11:26 EDT [facility] investment broker ID [id number] 08/20/2020 11:26 EDT [facility] HN LAB POC COMMENT (GLUCOSE) Test Performed by Nursing Services 08/20/2020 11:26 EDT [facility] Blood CAPILLARY BLOOD / Unknown 08/20/2020 11:26 EDT 08/20/2020 11:26 EDT Whit Rae MD POINT OF CARE TEST O RDERABLES [facility] [address] [place] [address] * TEST, URINE (08/20/2020 10:42 EDT) Test, Urine Negative Negative 08/20/2020 10:59 EDT [facility] Comment:False negative resul ts may occur in women who are beyond 5-8 weeks gestation. Diagnosis of should be based on a correlation of test results with typical clinical signs and symptoms. 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
--- OUTSIDE RECORDS SUMMARY | 2024-02-10 01:21 | XMS_ITS | Encounter Summary ---
Author Organization [facility] Address [address] [place] [address] Care Team Providers Care Advertising Rep Name Role Phone Unavailable Primary Care Provider Unavailabl e Reason for Visit * Reason Comments Diabetes Encounter Details Date Type Department Care Team (Latest Contact Info) Description 08/27/2020 10:30 EDT Office Visit [facility] Endocrinology - [facility] [address] [place] [address] Sara Zafar NP [address] 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 Apply for Freestyle Vignesh CGM. Kehinde's Nir Ozempic 0.25 mg weekly for 4 weeks.. If tolerated increased to 0.5 mg weekly for 4 weeks and athn To 1.0 weekly. If severe nausea drop to lower dose for another month and retry. Try to avoid bolusing between snacks. RD referral F/U in 4 months with new COTTRELL BLOWER. documented in this encounter Ordered Prescriptions Prescription [...] 08/27/2020 1030 EDT Subjective: [facility] F/U Note T Patient [...] trimester miscarriages, most recently terminated a at [facility] 10/28/2019. Recurrent loss is attributed to to poorly controlled type 2 diabetes in conjunction with tobacco dependence. She saw [facility] on 11/03/2018, and was advised to get [...] siblings, knows about 2, no DM. 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 Previous [...] 2 tabs daily. 2. Send BS to [email or web address] 3. Annetteeescourtney [place] CGM. ordered [facility] 4. Try to avoid bolusing between snacks. 5. RD referral 6. Consider using 1/2 unit pen for Novolog. 6. F/U in 4 months with new COTTRELL BLOWER as I will be retiring in October. [...] [facility] - [address] [id number] Carrington Calderon MD [address] [phone] 02/27/2024 8:30 EDT Telemedicine [facility] Sleep Program - [address] [id number] Dwight Colbert [address] [place] [address] [id number] 02/29/2024 10:30 EDT Appointment [facility] Radiology Nuclear Medicine and PET [address] [phone] 02/29/2024 14:30 EDT Appointment [facility] Radiology Nuclear Medicine and PET [address] [id number] 03/01/2024 8:00 EDT Appointment [facility] Radiology Nuclear Medicine and PET [address] [phone] 03/01/2024 9:30 EDT Appointment [facility] Radiology Nuclear Medicine and PET [address] [phone] documented as of this encounter Visit Diagnoses [...]
--- OUTSIDE RECORDS SUMMARY | 2024-02-10 01:21 | XMS_ITS | Encounter Summary ---
Author Organization [facility] Address [address] [place] [address] Care Team Providers Care Venetian Blind Machine Operator Name Role Phone Unavailable Primary Care Provider Unavailabl e Reason for Visit * Reason Onset Date Comments Hospital Discharge Follow Up 08/21/2020 Encounter Details Date Type Department Care Team (Late st Contact Info) Description 08/21/2020 Telephone [facility] Adult Primary Care - [address] [phone] Benita Thompson, MARCELO Hospital Discharge Follow Up [...] Encounter - Benita Thompson RN - 08/21/2020 0727 EDT Hospital Discharge Follow Up: Same Day Surgery 08/20/20 Risk Assessment: high 44 Reason for admission: Laparoscopic bilateral salpingectomy Symptoms improving? Pain level 8.5-9/10. She only tolerates OTC Tylenol. Patient is aware to contact OBGYN for pain management. Discharge instructions available? yes Medications Reviewed/prescriptions filled? yes -MANAGER APPLE medications resumed Support at home? Yes-spouse Home [...] [facility] Adult Primary Care - [address] [phone] Carrington Calderon MD [address] [phone] 02/27/2024 8:30 EDT Telemedicine [facility] Sleep Program - [address] [phone] Dwight Colbert [address] [place] [phone] 02/29/2024 10:[address] [facility] Radiology Nuclear Medicine and PET [address] [phone] 02/29/2024 14:[address] [facility] Radiology Nuclear Medicine and PET [address] [phone] 03/01/2024 8:[address] [facility] and PET - [address] [phone] 03/01/2024 9:[address] [facility] Radiology Nuclear Medicine and PET [address] [phone] documented as of this encounter Visit Diagnoses Not on filedocumented in this encounter
--- OUTSIDE RECORDS SUMMARY | 2024-02-10 01:21 | XMS_ITS | Encounter Summary ---
Author Organization [facility] Address [address] [place] [address] Care Team Providers Care Mind Reader Name Role Phone Unavailable Primary Care Provider Unavailabl e Encounter Details Date Type Department Care Team (Latest Contact Info) Description 08/12/2020 10:30 EST - 08/12/2020 23:59 EST Hospital Encounter [facility] Pre-Surgical Testing [address], [place] [phone] Discharge Disposition: Home or Self Care Social [...] mL 3 12/04/2019 12/21/2021 lancets One [employer] or other brand compatible with lancing device [...] instruct them to call us back at [phone] to report symptoms (If patient is in [...] [facility] Adult Primary Care - [address] [phone] Carrington Calderon MD [address] [phone] 02/27/2024 8:30 EDT Telemedicine [facility] Sleep Program - [address] 440231 Dwight Colbert [address] [place] [phone] 02/29/2024 10:30 EDT Appointment [facility] Radiology Nuclear Medicine and PET - [address] [phone] 02/29/2024 14:30 EDT Appointment [facility] Radiology Nuclear Medicine and PET - [address] [phone] 03/01/2024 8:00 EDT Appointment [facility] Radiology Nuclear Medicine and PET [address] [phone] 03/01/2024 9:30 EDT Appointment [facility] Radiology Nuclear Medicine and PET [address] [phone] documented as of this encounter Visit Diagnoses Not on filedocumented in this encounter
--- OUTSIDE RECORDS SUMMARY | 2024-02-10 01:21 | XMS_ITS | Encounter Summary ---
Author Organization [facility] Address [address] [place] [address] Care Team Providers Care Collection Advisor Name Role Phone Unavailable Primary Care Provider Unavailabl e Reason for Referral * Radiology Services (Routine) - Closed Specialty Diagnoses / Procedures Referred By Contac t Referred To Contact Nuclear Medicine Diagnoses Generalized abdominal pain Emesis, persistent Type 2 diabetes mellitus with hyperosmolarity without coma, with long-term current use of insulin ([facility]) Procedures NM GASTRIC EMPTYING SOLID Broderick Irene MD [address] [place] [address] Referral ID Status Reason Start Date Expiration Date Visits Re quested Visits Authorized [id number] Closed 08/10/2020 1 1 Reason for Visit [...] Expiration Date Visits Re quested Visits Authorized [id number] 1 1 Encounter Details Date Type Department Care Team (Late st Contact Info) Description 08/08/2020 18:57 EST - 08/10/2020 13:56 EST Hospital Encounter [facility] General Medicine Unit [address] [place] [address] Elise Charles MD 111 [facility], Level 1 [place] [address] Keshav Dumont MD [address] [address] Bouchra Costello MD [address] [address] Generalized abdominal pain (Primary Dx); Emesis, persistent; Type 2 diabetes mellitus with hyperosmolarity without coma, with long-term current use of insulin ([facility]); Dehydration; Gastroparesis Discharge Disposition: Home [...] LR. 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 [...] Component Value Units Date/Time Bacterial Culture, Blood [[id number]] Collected: 08/08/202058 Lab Status: In process Specimen: Blood, Venous Updated: 08/08/202116 Bacterial Culture, Blood [[id number]] Collected: 08/08/202099 Lab Status: In process Specimen: Blood, Venous Updated: 08/08/202116 Upcoming Appointments Aug 12, 2020 10:30 PAT Call with [facility] PAT CALL ROOM 4 [facility] Pre-Surgical Testing (--) [address] [facility] [address] Aug 17, 2020 9:00 Mobile Lab Testing with [facility] Drive Through Testing [facility] - JR ALICEA SELIGMAN ([facility] All Departments) [address] [place] [address] [address] Precinct: Review appointment date and time above. Arrival Instructions: Before I let you go, I need to read you a set of instructions. Please provide me with your full attention. The testing site is located at [address] [place] [address]. When you pull into the entrance stay [...] Follow Up Visit with Sara Zafar APRN [facility] Endocrinology - [place] (--) [address] Mar[place] [facility] [address] Sep 04, 2020 16:15 (Arrive by 16:00) Post Op Visit with Clarke Joseph MD [facility] Women's Services [facility] (--) [address] [facility] [address] Sep 10, 2020 15:00 Office Visit with Elza Navarro DPM [facility] Foot & Ankle Program - [facility] (--) [address] [facility] [address] [facility] [address] Follow-up appointments and procedures Amb Consult/Follow Up [...] Irene DO Internal Medicine PGY-1 Cortext preferred, #[id number] (via PAS) 08/10/20 11:11 Attestation: Pt seen and examined. I have reviewed Dr. Irene's note and agree with his summary asoutlined above. DOS 08/10/2020. Bouchra Costello MD, MPH documented in this encounter Discharge Instructions * Discharge Instr - AVS First Page* Broderick Irene MD - 08/10/2020 8:24 EST Please follow-up with your PCP as soon as able Please follow-up with your electronics installer We have ordered you a Gastric Emptying [...] any other concerns. Thank you for choosing [facility] for your care! documented in this encounter [...] Type of housing (single family, condo, apartment, alf, single room occupancy, [facility] funded hotel room, group mcc) - duplex Who does the patient live with? Spouse and roommate Does the patient have access to their own bedroom/bathroom/kitchen - or is it shared with others? shared Name of housing complex (ex [employer], [facility], etc)- N/A Housing Authority/Managing Organization - N/A Community Care Providers (housing case manager, [facility] nurse, etc) name and contact information- [...] For Finances: No TRANSPORTATION: Transportation: Family CULTURAL, CONFUCIANIST and/or LANGUAGE factors affecting health care/discharge planning: [...] Health Services: None DME Provider: None Pharmacy: [id number] - [facility] [address] [facility] [address] [facility] ([facility]) - [address] [address] Home Health: not prior to admission Other: none POST HOSPITAL TRANSITION PLAN: Home with support from spouse Hot Wire Glass Tube Cutter spoke to the patient's spouse. No home health needs identified at this time. Her spouse can transport her home when she is medically ready for discharge. PEGGY LAMAS RN CM MSN 08/09/2020 14:44 blogs manager * Bouchra Costello MD - 08/09/2020 [...] this morning. Tolerated a couple bites of south african muffin as well as taking liquid PO [...] 07/28/20 --Continue dose reduced glargine 30 (from airplane captain 40) --Hold mealtime insulin while not taking PO --SSI --Gabapentin 100 BID and 300 at bedtime ?? #Anxiety: --airplane captain lorazepam 0.5 mg TID prn Code [...] study Broderick Irene, DO Internal Medicine PGY-1, #[id number] 08/09/20 9:56 Attestation: Pt seen and examined; [...] told years ago ??? Depression ??? Diabetes ([facility]) A1c 10.3 on 11/28/2019 - poorly controlled ??? Difficulty opening mouth 06/13/2020 pain with opening mouth wide ??? Does not exercise 06/13/2020 due to infected toe ??? History of general anesthesia ??? Hx of ectopic 06/20/2020 ??? Irritable bowel syndrome 06/13/2020 ? ? Nausea & vomiting occasionally ??? Obesity, unspecified ??? Osteomyelitis ([facility]) of left great toe ??? [...] --D5 LR for 1L @ 100 cc/hr --[place] 10 QID prn --Zofran 4 mg Q 8 prn #T2DM: A1c 9.7 07/28/20 --Dose reduce glargine to 30 from airplane captain 40 --Hold mealtime insulin while not taking PO --SSI --Gabapentin 100 BID and 300 at bedtime #Anxiety: --airplane captain lorazepam 0.5 mg TID prn VTE [...] UA consistent with starvation ketosis. Will decrease SEMICONDUCTOR LAB TECHNICIAN insulin. Initially concern for AMS but LP [...] medical conditions at the [facility] on 08/08/2020. This note was created [...] She has had two visits to the [facility] ED prior to today for similar [...] and repeat procedure Alternatives discussed: No treatment [place] protocol: Procedure explained and questions answered to [...] for UTI. The patient presents to the [facility] ED endorsing abdominal pain accompanied by nausea w/emesis since early Tuesday morning. Of note, the patient has been evaluated at the [facility] ED twice this week prior to [...] [facility] [place] [address] Carrington Calderon MD 1 [facility] 1 [place] [address] 02/27/2024 8:30 EDT Telemedicine [facility] Sleep Program - [address] [place] [address] [place] [address] Dwight Colbert [address] [place] [address] 02/29/2024 10:30 [facility] - [address] [address] 02/29/2024 14:30 EDT Appointment [facility] Radiology Nuclear Medicine and PET [address] [address] 03/01/2024 8:00 EDT Appointment [facility] Radiology Nuclear Medicine and PET - [address] [address] 03/01/2024 9:30 EDT Appointment [facility] Radiology Nuclear Medicine and PET - [address] [address] documented as of this encounter Procedures Procedure [...] for solid food. References: Manny et al. [place] Journal of Gastroenterology 2000. Kev et al. Gastroenterology 2006 Roshni et al. [place] Journal of Gastroenterology 2006. Narrative 09/09/2020 16:10 [...] for solid food. References: Manny et al. [place] Journal of Gastroenterology 2000. Kev et al. Gastroenterology 2006 Roshni et al. [place] Journal of Gastroenterology 2006. Broderick Irene MD IMG NM ORDERABLES * ECG REPORT - SCANNED (08/25/2020 13:23 EDT) 08/25/2020 13:2 3 EDT Scan 2 Supervisor Logging PROCEDURE/MINOR BRAULIO GICAL ORDERABLES * (ABNORMAL) POCT GLUCOSE, INTERFACED (08/10/2020 11:56 EST) Glucose, POC 157(H) 70 - 100 mg/dL 08/10/2020 12:01 [facility] health care legal assistant [place] [id number] 08/10/2020 12:01 EST [facility] HN LAB POC COMMENT (GLUCOSE) Test Performed by Nursing Services 08/10/2020 12:01 [facility] Blood CAPILLARY BLOOD / Unknown 08/10/2020 11:56 EST 08/10/2020 12:01 EST Mervin Kamara MD POINT OF CARE TEST O RDERABLES [facility] [address] [place] [address] * (ABNORMAL) POCT GLUCOSE, INTERFACED (08/10/2020 7:13 EST) Glucose, POC 195(H) 70 - 100 mg/dL 08/10/2020 7:15 EST [facility] health care legal assistant [place] [id number] 08/10/2020 7:15 EST [facility] HN LAB POC COMMENT (GLUCOSE) Test Performed by Nursing Services 08/10/2020 7:15 [facility] Blood CAPILLARY BLOOD / Unknown 08/10/2020 7:13 EST 08/10/2020 7:15 EST Mervin Kamara MD POINT OF CARE TEST O RDERABLES Performing Organization Address [facility] de Phone Number [facility] [address] [place] [address] * CREATININE (08/10/2020 6:39 EST) Creatinine 0.60 0.52 - 1.04 mg/dL 08/10/2020 7:52 [facility] eGFR 118 >60 mL/min/1.7 3m2 08/10/2020 7:52 [facility] Comment:eGFR calculated gil curtis CKD-EPI equation for non- Americans. Multiply eGFR by 1.16 for patients. Blood VENOUS BLOOD / Unknown Venipuncture / Unknown 08/10/2020 6:39 EST 08/10/2020 7:22 EST Mervin Kamara MD CHEMISTRY & BLOOD GA S ORDERABLES Performing Organization Address [facility] Co de Phone Number [facility] [address] [place] [address] * ELECTROLYTES (08/10/2020 6:39 EST) Sodium 138 136 - 145 mEq/L 08/10/2020 7:52 [facility] Potassium 3.7 3.5 - 5.0 mEq/L 08/10/2020 7:52 [facility] Chloride 96 96 - 110 mEq/L 08/10/2020 7:52 [facility] CO2 Total 31 22 - 32 mEq/L 08/10/2020 7:52 [facility] Blood VENOUS BLOOD / Unknown Venipuncture / Unknown 08/10/2020 6:39 EST 08/10/2020 7:22 EST Mervin Kamara MD CHEMISTRY & BLOOD GA S ORDERABLES Performing Organization Address City/[facility]/ZIP Co de Phone Number [facility] [address] [place] [address] * (ABNORMAL) COMPLETE BLOOD COUNT (08/10/2020 6:39 EST) WBC 10.21 4.00 - 12.40 K/cmm 08/10/2020 7:13 [facility] RBC 4.70 3.86 - 5.04 M/cmm 08/10/2020 7:13 [facility] Hemoglobin 14.6 11.6 - 15.2 gm/dL 08/10/2020 7:13 [facility] HCT 40.3 34.9 - 44.4 % 08/10/2020 7:13 [facility] MCV 86 81 - 98 fl 08/10/2020 7:13 [facility] MCH 31.1 26.7 - 33.3 pg 08/10/2020 7:13 [facility] MCHC 36.2(H) 32.1 - 35.9 gm/dL 08/10/2020 7:13 [facility] RDW-CV 12.0 <14.7 % 08/10/2020 7:13 [facility] RDW-SD 37.5 <50.4 fl 08/10/2020 7:13 [facility] PLT 343 141 - 377 K/cmm 08/10/2020 7:13 [facility] MPV 9.8 9.5 - 12.7 fl 08/10/2020 7:13 [facility] Blood VENOUS BLOOD / Unknown Venipuncture / Unknown 08/10/2020 6:39 EST 08/10/2020 7:00 EST Mervin Kamara MD HEMATOLOGY & PF4 ORD ERABLES [facility] [address] [place] [address] * (ABNORMAL) POCT GLUCOSE, INTERFACED (08/09/2020 20:46 EST) Glucose, POC 218(H) 70 - 100 mg/dL 08/09/2020 20:54 [facility] health care legal assistant ID [id number] 08/09/2020 20:54 [facility] HN LAB POC COMMENT (GLUCOSE) Test Performed by Nursing Services 08/09/2020 20:54 [facility] Blood CAPILLARY BLOOD / Unknown 08/09/2020 20:46 EST 08/09/2020 20:54 EST Mervin Kamara MD POINT OF CARE TEST O MARILIA [facility] [address] [place] [address] * (ABNORMAL) POCT GLUCOSE, INTERFACED (08/09/2020 17:06 EST) Glucose, POC 209(H) 70 - 100 mg/dL 08/09/2020 17:11 [facility] health care legal assistant ID [id number] 08/09/2020 17:11 [facility] HN LAB POC COMMENT (GLUCOSE) Test Performed by Nursing Services 08/09/2020 17:11 [facility] Blood CAPILLARY BLOOD / Unknown 08/09/2020 17:06 EST 08/09/2020 17:10 EST Mervin Kamara MD POINT OF CARE TEST O MARILIA [facility] [address] [place] [address] * (ABNORMAL) POCT GLUCOSE, INTERFACED (08/09/2020 13:22 EST) Glucose, POC 244(H) 70 - 100 mg/dL 08/09/2020 13:24 [facility] health care legal assistant ID [id number] 08/09/2020 13:24 [facility] HN LAB POC COMMENT (GLUCOSE) Test Performed by Nursing Services 08/09/2020 13:24 [facility] Blood CAPILLARY BLOOD / Unknown 08/09/2020 13:22 EST 08/09/2020 13:24 EST Mervin Kamara MD POINT OF CARE TEST O RDERABLES [facility] [address] [place] [address] * (ABNORMAL) POCT GLUCOSE, INTERFACED (08/09/2020 9:23 EST) Glucose, POC 179(H) 70 - 100 mg/dL 08/09/2020 9:24 EST [facility] health care legal assistant ID [id number] 08/09/2020 9:24 EST [facility] HN LAB POC COMMENT (GLUCOSE) Test Performed by Nursing Services 08/09/2020 9:24 EST [facility] Blood CAPILLARY BLOOD / Unknown 08/09/2020 9:23 EST 08/09/2020 9:24 EST Keshav Dumont MD POINT OF CARE TEST ORDERABLES Performing Organization Address [facility] Co de Phone Number [facility] [address] [place] [address] * (ABNORMAL) CREATININE (08/09/2020 7:04 EST) Creatinine 0.47(L) 0.52 - 1.04 mg/dL 08/09/2020 8:32 EST [facility] eGFR 128 >60 mL/min/1.7 3m2 08/09/2020 8:32 EST [facility] Comment:eGFR calculated gil curtis CKD-EPI equation for non- Americans. Multiply eGFR by 1.16 for patients. Blood VENOUS BLOOD / Unknown Venipuncture / Unknown 08/09/2020 7:04 EST 08/09/2020 7:58 EST Mervin Kamara MD CHEMISTRY & BLOOD GA S ORDERABLES Performing Organization Address City/[facility]/ZIP Co de Phone Number [facility] [address] [place] [address] * (ABNORMAL) ELECTROLYTES (08/09/2020 7:04 EST) Sodium 134(L) 136 - 145 mEq/L 08/09/2020 8:32 [facility] Potassium 3.4(L) 3.5 - 5.0 mEq/L 08/09/2020 8:32 [facility] Chloride 95(L) 96 - 110 mEq/L 08/09/2020 8:32 [facility] CO2 Total 30 22 - 32 mEq/L 08/09/2020 8:32 [facility] Blood VENOUS BLOOD / Unknown Venipuncture / Unknown 08/09/2020 7:04 EST 08/09/2020 7:58 EST Mervin Kamara MD CHEMISTRY & BLOOD GA S ORDERABLES Performing Organization Address City/State/[facility] Co de Phone Number [facility] [address] [place] [address] * (ABNORMAL) COMPLETE BLOOD COUNT (08/09/2020 7:04 EST) WBC 11.82 4.00 - 12.40 K/cmm 08/09/2020 7:42 [facility] RBC 4.31 3.86 - 5.04 M/cmm 08/09/2020 7:42 [facility] Hemoglobin 13.3 11.6 - 15.2 gm/dL 08/09/2020 7:42 [facility] HCT 36.3 34.9 - 44.4 % 08/09/2020 7:42 [facility] MCV 84 81 - 98 fl 08/09/2020 7:42 [facility] MCH 30.9 26.7 - 33.3 pg 08/09/2020 7:42 [facility] MCHC 36.6(H) 32.1 - 35.9 gm/dL 08/09/2020 7:42 [facility] RDW-CV 11.9 <14.7 % 08/09/2020 7:42 [facility] RDW-SD 36.4 <50.4 fl 08/09/2020 7:42 [facility] PLT 340 141 - 377 K/cmm 08/09/2020 7:42 [facility] MPV 9.7 9.5 - 12.7 fl 08/09/2020 7:42 [facility] Blood VENOUS BLOOD / Unknown Venipuncture / Unknown 08/09/2020 7:04 EST 08/09/2020 7:29 EST Mervin Kamara MD HEMATOLOGY & PF4 ORD ERABLES [facility] [address] [place] [address] * (ABNORMAL) POCT GLUCOSE, INTERFACED (08/09/2020 4:21 EST) Glucose, POC 219(H) 70 - 100 mg/dL 08/09/2020 7:22 [facility] health care legal assistant ID [id number] 08/09/2020 7:22 [facility] HN LAB POC COMMENT (GLUCOSE) Test Performed by Nursing Services 08/09/2020 7:22 [facility] Blood CAPILLARY BLOOD / Unknown 08/09/2020 4:21 EST 08/09/2020 7:22 EST Keshav Dumont MD POINT OF CARE TEST ORDERABLES Performing Organization Address City/[facility]/ZIP Co de Phone Number [facility] [address] [place] [address] * (ABNORMAL) POCT GLUCOSE, INTERFACED (08/09/2020 1:47 EST) Glucose, POC 173(H) 70 - 100 mg/dL 08/09/2020 7:16 [facility] health care legal assistant ID [id number] 08/09/2020 7:16 [facility] HN LAB POC COMMENT (GLUCOSE) Test Performed by Nursing Services 08/09/2020 7:16 [facility] Blood CAPILLARY BLOOD / Unknown 08/09/2020 1:47 EST 08/09/2020 7:16 EST Mervin Kamara MD POINT OF CARE TEST O RDERABLES Performing Organization Address City/[facility]/ZIP Co de Phone Number [facility] [address] [place] [address] * HN LAB CELL COUNT, CSF (08/08/2020 23:12 EST) RBC, CSF <1 /cmm 08/08/2020 23:43 EST [facility] Nucleated Cells, CSF <1 0 - 5 /cmm 08/08/2020 23:43 [facility] Total Volume CSF 4.8 ml 08/08/2020 23:43 [facility] Tube Cntd. 4 08/08/2020 23:43 [facility] Comment, CSF Clear and colorless 08/08/2020 23:43 [facility] Tube Vol. 1.2 ml 08/08/2020 23:43 [facility] Fluid CEREBROSPINAL FLUID SPECIMEN / Unknown 08/08/2020 23:12 EST 08/08/2020 23:22 EST Elise Charles MD HEMATOLOGY & PF4 O RDERABLES Performing Organization Address [facility] Co de Phone Number [facility] [address] [place] [address] * BACTERIAL CULTURE/SMEAR (08/08/2020 23:12 EST) Organism ID No Growth 08/10/2020 8:49 EST [facility] Smear No Neutrophils Seen 08/10/2020 8:49 EST [facility] Smear No bacteria seen 08/10/2020 8:49 EST [facility] Fluid CEREBROSPINAL FLUID SPECIMEN / Unknown 08/08/2020 23:12 EST 08/08/2020 23:22 EST Elise Charles MD MICROBIOLOGY - GEN ERAL ORDERABLES Performing Organization Address City/[facility]/ZIP Co de Phone Number [facility] [address] [place] [address] * (ABNORMAL) TOTAL PROTEIN, CSF (08/08/2020 23:12 EST) Total Protein, CSF 55(H) 12 - 45 mg/dL 08/09/2020 0:00 EST [facility] Fluid CEREBROSPINAL FLUID SPECIMEN / Unknown 08/08/2020 23:12 EST 08/08/2020 23:22 EST Elise Charles MD GEN LAB UNIT COLLE CT ORDERABLES Performing Organization Address [facility]/ZIP Co de Phone Number [facility] [address] [place] [address] * GLUCOSE CSF (08/08/2020 23:12 EST) Pathologist [facility] Glucose, CSF 126 See Note mg/dL 08/09/2020 0:00 EST [facility] Comment: NOTE: Reference range for Glucose in CSF: 60% - 80% of the Serum/Plasma Glucose Fluid CEREBROSPINAL FLUID SPECIMEN / Unknown 08/08/2020 23:12 EST 08/08/2020 23:22 EST Elise Charles MD GEN LAB UNIT COLLE CT ORDERABLES Performing Organization Address [facility] Co de Phone Number [facility] [address] [place] [address] * CELL COUNT TUBE 1, CSF - RBC ONLY, INDICATED FOR A BLOODY TAP (08/08/2020 23:12 EST) Pathologist [facility] RBC, CSF Tube#1 <1 /cmm 08/08/2020 23:43 EST [facility] Specimen Volume 1.2 ml 08/08/2020 23:43 EST [facility] Fluid CEREBROSPINAL FLUID SPECIMEN / Unknown 08/08/2020 23:12 EST 08/08/2020 23:22 EST Elise Charles MD GEN LAB UNIT COLLE CT ORDERABLES Performing Organization Address City/[facility]/ZIP Co de Phone Number [facility] [address] [place] [address] * TEST, URINE (08/08/2020 22:32 EST) Test, Urine Negative Negative 08/09/2020 1:36 [facility] Comment:False negative resul ts may occur in women who are beyond 5-8 weeks gestation. Diagnosis of should be based on a correlation of test results with typical clinical signs and symptoms. Urine URINE SPECIMEN COLLECTION, CLEAN CATCH / Unknown Urine Collect / Unknown 08/08/2020 22:32 EST 08/08/2020 22:34 EST Keshav Dumont MD URINALYSIS ORDERABL ES [facility] [address] [place] [address] * (ABNORMAL) URINE CHEMICAL (DIP) & SEDIMENT (MICRO) WITH REFLEX TO CULTURE (08/08/2020 22:32 EST) Color UA Yellow Colorless, Yellow 08/08/2020 23:01 [facility] Clarity UA Hazy(A) Clear 08/08/2020 23:01 [facility] Glucose UA Trace(A) Negative 08/08/2020 23:01 [facility] SERVICES Bilirubin UA Negative Negative 08/08/2020 23:01 [facility] Ketones UA 3+(AA) Negative 08/08/2020 23:01 [facility] Specific [place], Urine 1.024 1.001 - 1.035 08/08/2020 23:01 [facility] Blood UA Negative Negative 08/08/2020 23:01 [facility] Urobilinogen UA 4(A) Normal mg/dL 08/08/2020 23:01 [facility] Nitrite UA Negative Negative 08/08/2020 23:01 [facility] Leukocyte Esterase UA Negative Negative 08/08/2020 23:01 [facility] Protein UA 1+(A) Negative 08/08/2020 23:01 [facility] pH, UA 7.5 4.6 - 8.0 08/08/2020 23:01 [facility] Urine RBC Count, Auto 0 - 2 0 - 2 Cells/HPF 08/08/2020 23:01 [facility] Urine WBC Count, Auto 0 - 3 0 - 3 Cells/HPF 08/08/2020 23:01 [facility] Urine Squamous Count, Auto Moderate(A) None Seen Cells/HPF 08/08/2020 23:01 [facility] Urine Hyaline Cast Count, Auto <=10 <=10 Casts/LPF 08/08/2020 23:01 [facility] Urine Bacteria Count, Auto None Seen None Seen Bacteria/HP F 08/08/2020 23:01 [facility] Urine Crystals Amorphous Phosphates Present(A) None Seen 08/08/2020 23:01 [facility] Urine URINE SPECIMEN COLLECTION, CLEAN CATCH / Unknown Urine Collect / Unknown 08/08/2020 22:32 EST 08/08/2020 22:34 EST Narrative [facility] - 08/08/2020 23:01 EST NOTE: Reflex to Urine Culture test is not indicated based on Urine Sediment Analysis results. Urine Sediment Analysis results are unreliable on urines that are unrefrigerated for >2 hrs or refrigerated >8 hrs. Asuncion Telles MD URINALYSIS ORDERABLE S [facility] [address] [place] [address] * CT HEAD WO CONTRAST (08/08/2020 21:15 [...] MD IMG CT ORDERABLES * COVID-19 TEST [facility] PCR (08/08/2020 21:00 EST) Swab ENTIRE NASOPHARYNX / Unknown Swab / Unknown 08/08/2020 21:00 EST 08/08/2020 21:04 EST Asuncion Telles MD MICROBIOLOGY - GENER AL ORDERABLES [facility] [address] [place] [address] * COVID-19 TESTING (08/08/2020 21:00 EST) COVID-19 rt-PCR Result Negative Negative 08/08/2020 23:52 EST [facility] Comment: This test has [...] history, and epidemiological information. Performed on the [employer] Fusion instrument Performing Lab [place] [facility] 08/08/2020 23:52 EST [facility] Swab ENTIRE NASOPHARYNX / Unknown Swab / Unknown 08/08/2020 21:00 EST 08/08/2020 21:04 EST Asuncion Telles MD MICROBIOLOGY - GENER AL ORDERABLES Performing Organization Address City/[facility]/ZIP Co de Phone Number [facility] [address] [place] [address] * LACTIC ACID (08/08/2020 21:00 EST) Lactic Acid 1.2 <=2.0 mmol/L 08/08/2020 21:17 EST [facility] Blood VENOUS BLOOD / Unknown Venipuncture / Unknown 08/08/2020 21:00 EST 08/08/2020 21:05 EST Asuncion Telles MD CHEMISTRY & BLOOD GA S ORDERABLES Performing Organization Address City/[facility] Co de Phone Number [facility] [address] [place] [address] * BACTERIAL CULTURE, BLOOD (08/08/2020 21:00 EST) Organism ID No Growth at 5 days 08/13/2020 21:30 EST [facility] Blood VENOUS BLOOD / Unknown Blood Culture / Unknown 08/08/2020 21:00 EST 08/08/2020 21:17 EST Asuncion Telles MD MICROBIOLOGY - GENER AL ORDERABLES Performing Organization Address City/[facility] Co de Phone Number [facility] [address] [place] [address] * BACTERIAL CULTURE, BLOOD (08/08/2020 20:59 EST) Organism ID No Growth at 5 days 08/13/2020 21:30 EST [facility] Blood VENOUS BLOOD / Unknown Blood Culture / Unknown 08/08/2020 20:59 EST 08/08/2020 21:17 EST Asuncion Telles MD MICROBIOLOGY - GENER AL ORDERABLES Performing Organization Address City/[facility] de Phone Number [facility] [address] [place] [address] * ED LUMBAR PUNCTURE BEDSIDE OR CLINIC PERFORMED (08/08/2020 19:21 EST) Narrative [facility] EKG - 08/08/2020 19:21 EST Elise Charles MD ? 08/09/2020 ??9:40 Lumbar Puncture Date/Time: 08/08/2020 22:31 Performed by: Asuncion Telles MD Authorized by: Elise Charles MD Consent: ??Consent obtained: ??Verbal ??Consent given by: ??Patient ??Risks discussed: ??Bleeding, headache, nerve damage, infection, pain and repeat procedure ??Alternatives discussed: ??No treatment [place] protocol: ??Procedure explained and questions answered to [...] PROCEDURE/MINOR GOLDMAN RGICAL ORDERABLES Performing Organization Address [facility]/ZIP Co de Phone Number [facility] E[facility] * C REACTIVE PROTEIN (08/08/2020 19:07 EST) Pathologist [facility] C-Reactive Protein <7.0 <10.0 mg/L 08/08/2020 21:11 EST [facility] Blood VENOUS BLOOD / Unknown Venipuncture / Unknown 08/08/2020 19:07 EST 08/08/2020 19:12 EST Asuncion Telles MD CHEMISTRY & BLOOD GA S ORDERABLES Performing Organization Address [facility]/ZIP Co de Phone Number [facility] [address] [place] [address] * SED. RATE:WESTERGREN (08/08/2020 19:07 EST) Sed Rate 12 0 - 20 mm/hr 08/08/2020 21:15 EST [facility] Blood VENOUS BLOOD / Unknown Venipuncture / Unknown 08/08/2020 19:07 EST 08/08/2020 19:12 EST Asuncion Telles MD HEMATOLOGY & PF4 ORD ERABLES Performing Organization Address [facility] Co de Phone Number [facility] [address] [place] [address] * (ABNORMAL) BETA HYDROXYBUTYRATE (08/08/2020 19:07 EST) Beta Hydroxybutyrate 2.7(H) <0.4 mmol/L 08/08/2020 20:43 EST [facility] Blood VENOUS BLOOD / Unknown Venipuncture / Unknown 08/08/2020 19:07 EST 08/08/2020 19:12 EST Elise Charles MD CHEMISTRY & BLOOD GAS ORDERABLES Performing Organization Address [facility] Co de Phone Number [facility] [address] [place] [address] * LIPASE (08/08/2020 19:07 EST) Lipase 194 <251 U/L 08/08/2020 19:35 EST [facility] Blood VENOUS BLOOD / Unknown Venipuncture / Unknown 08/08/2020 19:07 EST 08/08/2020 19:12 EST Asuncion Telles MD CHEMISTRY & BLOOD GA S ORDERABLES Performing Organization Address [facility] Co de Phone Number [facility] [address] [place] [address] * (ABNORMAL) COMPREHENSIVE METABOLIC PANEL (CMP) (08/08/2020 19:07 EST) Sodium 136 136 - 145 mEq/L 08/08/2020 19:38 EST [facility] Potassium 3.7 3.5 - 5.0 mEq/L 08/08/2020 19:38 EST [facility] Comment: NOTE: Interpret with caution. Prolonged sample storage may alter the result. Chloride 91(L) 96 - 110 mEq/L 08/08/2020 19:38 EST [facility] CO2 Total 28 22 - 32 mEq/L 08/08/2020 19:38 [facility] Comment: NOTE: Interpret with caution. Prolonged sample storage may alter the result. Glucose 224(H) 70 - 100 mg/dL 08/08/2020 19:38 [facility] BUN 12 10 - 26 mg/dL 08/08/2020 19:38 [facility] Creatinine 0.59 0.52 - 1.04 mg/dL 08/08/2020 19:38 [facility] eGFR 119 >60 mL/min/1.7 3m2 08/08/2020 19:38 [facility] Comment:eGFR calculated gil curtis CKD-EPI equation for non- Americans. Multiply eGFR by 1.16 for patients. Total Protein 7.8 6.3 - 8.2 g/dL 08/08/2020 19:38 [facility] Albumin 4.9 3.4 - 4.9 g/dL 08/08/2020 19:38 [facility] Alkaline Phosphatase 97 38 - 126 U/L 08/08/2020 19:38 [facility] AST 29 15 - 46 U/L 08/08/2020 19:38 [facility] ALT 23 <35 U/L 08/08/2020 19:38 [facility] Bilirubin, Total 1.0 <1.4 mg/dL 08/09/19 19:38 [facility] Calcium 10.5 8.5 - 10.5 mg/dL 08/08/2020 19:38 [facility] Calculated Calcium 9.8 8.5 - 10.5 mg/dL 08/08/2020 19:38 [facility] Blood VENOUS BLOOD / Unknown Venipuncture / Unknown 08/08/2020 19:07 EST 08/08/2020 19:12 EST sAuncion Telles MD CHEMISTRY & BLOOD GA S ORDERABLES [facility] [address] [place] [address] * (ABNORMAL) COMPLETE BLOOD COUNT AND DIFFERENTIAL (08/08/2020 19:07 EST) WBC 16.16(H) 4.00 - 12.40 K/cmm 08/08/2020 19:33 [facility] RBC 4.94 3.86 - 5.04 M/cmm 08/08/2020 19:33 [facility] Hemoglobin 15.3(H) 11.6 - 15.2 gm/dL 08/08/2020 19:33 [facility] HCT 41.4 34.9 - 44.4 % 08/08/2020 19:33 [facility] MCV 84 81 - 98 fl 08/08/2020 19:33 [facility] MCH 31.0 26.7 - 33.3 pg 08/08/2020 19:33 [facility] MCHC 37.0(H) 32.1 - 35.9 gm/dL 08/08/2020 19:33 [facility] RDW-CV 11.9 <14.7 % 08/08/2020 19:33 [facility] RDW-SD 36.2 <50.4 fl 08/08/2020 19:33 [facility] PLT 416(H) 141 - 377 K/cmm 08/08/2020 19:33 [facility] MPV 9.7 9.5 - 12.7 fl 08/08/2020 19:33 [facility] % Neutrophils 65.9 % 08/08/2020 19:33 [facility] % Lymphocytes 25.0 % 08/08/2020 19:33 [facility] % Monocytes 8.1 % 08/08/2020 19:33 [facility] % Eosinophils 0.4 % 08/08/2020 19:33 [facility] % Basophils 0.4 % 08/08/2020 19:33 [facility] % Immature Grans 0.2 % 08/09/19 19:33 [facility] Absolute Neutrophils 10.63(H) 2.20 - 8.85 K/cmm 08/08/2020 19:33 [facility] Absolute Lymphocytes 4.04(H) 1.09 - 3.30 K/cmm 08/08/2020 19:33 [facility] Absolute Monocytes 1.31(H) 0.10 - 0.80 K/cmm 08/08/2020 19:33 [facility] Absolute Eosinophils 0.07 0.03 - 0.61 K/cmm 08/08/2020 19:33 [facility] ABS Basophils 0.07 0.01 - 0.11 K/cmm 08/08/2020 19:33 [facility] Absolute Immature Grans 0.04 0.00 - 0.06 K/cmm 08/08/2020 19:33 [facility] Type of Differential: Auto 08/08/2020 19:33 [facility] Blood VENOUS BLOOD / Unknown Venipuncture / Unknown 08/08/2020 19:07 EST 08/08/2020 19:12 EST Asuncion Telles MD PACKAGES & DNA PROBE ORDERABLES Performing Organization Address City/[facility]/ZIP Co de Phone Number [facility] [address] [place] [address] * HOLD SST (08/08/2020 19:07 EST) Hold Hold 08/08/2020 20:15 EST [facility] Blood VENOUS BLOOD / Unknown Venipuncture / Unknown 08/08/2020 19:07 EST 08/08/2020 19:12 EST Elise Charles MD LAB INFO SERVICE A ND SUPPORT & PHONE RESULT Performing Organization Address City/[facility]/ZIP Co de Phone Number [facility] [address] [place] [address] * HOLD LAVENDER TOP (08/08/2020 19:07 EST) Hold Hold 08/08/2020 20:15 EST [facility] Blood VENOUS BLOOD / Unknown Venipuncture / Unknown 08/08/2020 19:07 EST 08/08/2020 19:12 EST Elise Charles MD LAB INFO SERVICE A ND SUPPORT & PHONE RESULT Performing Organization Address City/[facility]/ZIP Co de Phone Number [facility] [address] [place] [address] * HOLD GREEN TOP (08/08/2020 19:07 EST) Hold Hold 08/08/2020 20:15 EST [facility] Blood VENOUS BLOOD / Unknown Venipuncture / Unknown 08/08/2020 19:07 EST 08/08/2020 19:12 EST Elise Charles MD LAB INFO SERVICE A ND SUPPORT & PHONE RESULT Performing Organization Address [facility]/ZIP Co de Phone Number [facility] [address] [place] [address] * HOLD BLUE TOP (08/08/2020 19:07 EST) Hold Hold 08/08/2020 20:15 EST [facility] Blood VENOUS BLOOD / Unknown Venipuncture / Unknown 08/08/2020 19:07 EST 08/08/2020 19:12 EST Elise Charles MD LAB INFO SERVICE A ND SUPPORT & PHONE RESULT Performing Organization Address [facility]/ZIP Co de Phone Number [facility] [address] [place] [address] * EKG 12-LEAD (08/08/2020 19:04 EST) 08/08/2020 19:0 4 EST Narrative [facility] E[facility] - 08/25/2020 13:16 EDT ?[facility] Emergency ? Test Date: ?2020-08-08 Pat Name: ? CRISTY LUO ?Department: ?? ED ? Room: ? AC14 Gender: ? Female ? 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 [id number] : ?1985 ? Requested By: SUSANNE Huizar Order Number: [id number] ? Reading MD: ?? CINDY GARCIA MD ? Measurements Intervals ?[place] ? Rate: ? 86 ? P: ?65 AK: ? 139 ?QRS: ?48 QRSD: ? 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: [id number] : 1985 Requested By: SUSANNE Huizar Order Number: [id number] Reading MD: CINDY GARCIA MD Measurements Intervals [place] Rate: 86 P: 65 AK: 139 QRS: 48 QRSD: 93 T: 20 [...] Alessandro Delgadillo MD CARDIAC ECG ORDERABL ES [facility] EKG * (ABNORMAL) POCT GLUCOSE, INTERFACED (08/08/2020 18:54 EST) Glucose, POC 213(H) 70 - 100 mg/dL 08/08/2020 18:55 EST [facility] health care legal assistant ID [id number] 08/08/2020 18:55 EST [facility] HN LAB POC COMMENT (GLUCOSE) Test Performed by Nursing Services 08/08/2020 18:55 EST [facility] Blood CAPILLARY BLOOD / Unknown 08/08/2020 18:54 EST 08/08/2020 18:55 EST Provider Unknown MD POINT OF CARE TEST O RDERABLES [facility] [address] [place] [address] documented in this encounter Visit Diagnoses Diagnosis Generalized abdominal pain- Primary Abdominal pain, generalized Generalized abdominal pain Abdominal pain, generalized Emesis, persistent Persistent vomiting Type 2 diabetes mellitus with hyperosmolarity without coma, with long-term current use of insulin ([facility]) Dehydration Gastroparesis Abdominal pain Abdominal pain, unspecified site Emesis, persistent Persistent vomiting Dehydration Gastroparesis Generalized abdominal pain Abdominal pain, generalized Emesis, persistent Persistent vomiting Type 2 diabetes mellitus with hyperosmolarity without coma, with long-term current use of insulin ([facility]) documented in this encounter Administered [...] at 1930, STAT 1922 (Given - Provider: Kayliegh Bernal, MARCELO) HYDROmorphone (PF) (DILAUDID) 0.5 mg/0.5 mL syringe 0.5 mg (COMPLETED) 0.5 mg, intravenous, NOW X1, 1 dose, On Tue08/08/20 at 2200, STAT 2155 (Given - Provider: Kayleigh Bernal RN) insulin aspart U-100 (NOVOLOG FLEXPEN) injection (CANCELED) subcutaneous, EVERY 6 HOURS, First dose on Tue08/09/20 at 0230, Until Discontinued, Routine, Indications: SUPPLEMENTAL INSULIN 0423 (Given - Provider: Jayne Perera RN - Comment: [phone] (Not Given - Provider: Vinicius Blood RN [...] MARCELO)0900 (Canceled Entry - Provider: Rivera Kerr [facility])2100 (Not Given - Provider: Eryn Goss [...]
--- OUTSIDE RECORDS SUMMARY | 2024-02-10 01:22 | XMS_ITS | Encounter Summary ---
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 Pt reports diffuse abdominal pain. Encounter Details Date Type Department Care Team (Late st Contact Info) Description 08/06/2020 3:57 EST - 08/06/2020 8:59 EST Emergency [facility] Emergency Department - [facility] [address] [place] [address] Kylah Whitaker PA-C [address] [facility], Level [address] [place] [phone] Jeremiah Hein PA-C [address] [place] [phone] Non-intractable vomiting with nausea, unspecified vomiting type [...] through Care Everywhere. * Nausea and Vomiting (Turkmen) documented in this encounter Medications at Time [...] Means Destination Comment s Home or Self Prison driving. documented in this encounter ED Notes [...] Abnormality Status --------- ------ POCT URINE DIPSTICK, CLI...[[id number]] POCT CSN BARCODE URINE D...[[id number]] Please view results for these tests on the individual orders. POCT TEST, CLINITEK ORDER Narrative: The following orders were created for panel order POCT TEST, CLINITEK ORDER. Procedure Abnormality Status --------- ------ POCT TEST, CLI...[[id number]] POCT CSN BARCODE URINE P...[[id number]] Please view results for these tests on [...] results. * Angelica Stone RN - 08/06/2020 4877 EST I assumed care of pt at [...] Visit [facility] Adult Primary Care - [address] [id number] Carrington Calderon MD 1 [facility] 1 [place] [address] 02/27/2024 8:30 EDT Telemedicine [facility] Sleep Program - [address] [phone] Dwight Colbert [address] [place] [phone] 02/29/2024 10:30 EDT Appointment [facility] Radiology Nuclear Medicine and PET [address] [id number] 02/29/2024 14:30 EDT Appointment [facility] Radiology Nuclear Medicine and PET [address] [id number] 03/01/2024 8:00 EDT Appointment [facility] Radiology Nuclear Medicine and PET [address] [id number] 03/01/2024 9:30 EDT Appointment [facility] Radiology Nuclear Medicine and PET [address] [phone] documented as of this encounter Procedures Procedure [...] No acute fracture or suspicious osseous lesion. Esl Teacher: No additional pathology identified. Procedure Note Broderick [...] No acute fracture or suspicious osseous lesion. Esl Teacher: No additional pathology identified. IMPRESSION 1. No [...] S ORDERABLES [facility] [address] [place] [address] * LIPASE (08/06/2020 4:13 EST) Lipase 141 <251 U/L 08/06/2020 5:00 [facility] Blood VENOUS BLOOD / Unknown Venipuncture / Unknown 08/06/2020 4:13 EST 08/06/2020 4:19 EST Kylah Whitaker PA-C CHEMISTRY & BLOOD GA S ORDERABLES Performing Organization Address [facility] Co de Phone Number [facility] [address] [place] [address] * (ABNORMAL) COMPREHENSIVE METABOLIC PANEL (CMP) (08/06/2020 4:13 EST) Sodium 139 136 - 145 mEq/L 08/06/2020 5:00 [facility] Potassium 3.4(L) 3.5 - 5.0 mEq/L 08/06/2020 5:00 [facility] Comment: NOTE: Interpret with caution. Prolonged sample storage may alter the result. Chloride 99 96 - 110 mEq/L 08/06/2020 5:00 [facility] CO2 Total 25 22 - 32 mEq/L 08/06/2020 5:00 [facility] Comment: NOTE: Interpret with caution. Prolonged sample storage may alter the result. Glucose 255(H) 70 - 100 mg/dL 08/06/2020 5:00 [facility] BUN 12 10 - 26 mg/dL 08/06/2020 5:00 [facility] Creatinine 0.52 0.52 - 1.04 mg/dL 08/06/2020 5:00 [facility] eGFR 124 >60 mL/min/1.7 3m2 08/06/2020 5:00 [facility] Comment:eGFR calculated gil curtis CKD-EPI equation for non- Americans. Multiply eGFR by 1.16 for patients. Total Protein 7.0 6.3 - 8.2 g/dL 08/06/2020 5:00 [facility] Albumin 4.2 3.4 - 4.9 g/dL 08/06/2020 5:00 [facility] Alkaline Phosphatase 92 38 - 126 U/L 08/06/2020 5:00 [facility] AST 29 15 - 46 U/L 08/06/2020 5:00 [facility] ALT 23 <35 U/L 08/06/2020 5:00 [facility] Bilirubin, Total 0.6 <1.4 mg/dL 08/07/19 5:00 [facility] Calcium 9.4 8.5 - 10.5 mg/dL 08/06/2020 5:00 [facility] Calculated Calcium 9.2 8.5 - 10.5 mg/dL 08/06/2020 5:00 [facility] Blood VENOUS BLOOD / Unknown Venipuncture / Unknown 08/06/2020 4:13 EST 08/06/2020 4:19 EST Kylah Whitaker PA-C CHEMISTRY & BLOOD GA S ORDERABLES [facility] [address] [place] [address] * (ABNORMAL) COMPLETE BLOOD COUNT AND DIFFERENTIAL (08/06/2020 4:13 EST) WBC 13.81(H) 4.00 - 12.40 K/cmm 08/06/2020 5:13 [facility] RBC 4.57 3.86 - 5.04 M/cmm 08/06/2020 5:13 [facility] Hemoglobin 14.0 11.6 - 15.2 gm/dL 08/06/2020 5:13 [facility] HCT 39.4 34.9 - 44.4 % 08/06/2020 5:13 [facility] MCV 86 81 - 98 fl 08/06/2020 5:13 [facility] MCH 30.6 26.7 - 33.3 pg 08/06/2020 5:13 [facility] MCHC 35.5 32.1 - 35.9 gm/dL 08/06/2020 5:13 [facility] RDW-CV 12.1 <14.7 % 08/06/2020 5:13 [facility] RDW-SD 38.3 <50.4 fl 08/06/2020 5:13 [facility] PLT 427(H) 141 - 377 K/cmm 08/06/2020 5:13 [facility] MPV 9.9 9.5 - 12.7 fl 08/06/2020 5:13 [facility] % Neutrophils 51.5 % 08/06/2020 5:13 [facility] % Lymphocytes 36.1 % 08/06/2020 5:13 [facility] % Monocytes 9.1 % 08/06/2020 5:13 [facility] % Eosinophils 2.2 % 08/06/2020 5:13 [facility] % Basophils 0.7 % 08/06/2020 5:13 [facility] % Immature Grans 0.4 % 08/07/19 5:13 [facility] Absolute Neutrophils 7.11 2.20 - 8.85 K/cmm 08/06/2020 5:13 [facility] Absolute Lymphocytes 4.98(H) 1.09 - 3.30 K/cmm 08/06/2020 5:13 [facility] Absolute Monocytes 1.26(H) 0.10 - 0.80 K/cmm 08/06/2020 5:13 [facility] Absolute Eosinophils 0.31 0.03 - 0.61 K/cmm 08/06/2020 5:13 [facility] ABS Basophils 0.10 0.01 - 0.11 K/cmm 08/06/2020 5:13 [facility] Absolute Immature Grans 0.05 0.00 - 0.06 K/cmm 08/06/2020 5:13 [facility] Type of Differential: Auto 08/06/2020 5:13 [facility] Blood VENOUS BLOOD / Unknown Venipuncture / Unknown 08/06/2020 4:13 EST 08/06/2020 4:19 EST Kylah Julianne PA-C PACKAGES & DNA PROBE ORDERABLES Performing Organization Address [facility]/ZIP Co de Phone Number [facility] [address] [place] [address] * HOLD SST (08/06/2020 4:13 EST) Hold Hold 08/06/2020 5:32 EST [facility] Blood VENOUS BLOOD / Unknown Venipuncture / Unknown 08/06/2020 4:13 EST 08/06/2020 4:19 EST Kylah Larow PA-C LAB INFO SERVICE AND SUPPORT & PHONE RESULT Performing Organization Address [facility]/ZIP Co de Phone Number [facility] [address] [place] [address] * HOLD LAVENDER TOP (08/06/2020 4:13 EST) Hold Hold 08/06/2020 5:32 EST [facility] Blood VENOUS BLOOD / Unknown Venipuncture / Unknown 08/06/2020 4:13 EST 08/06/2020 4:19 EST Kylah Larow PA-C LAB INFO SERVICE AND SUPPORT & PHONE RESULT Performing Organization Address City/[facility]/ZIP Co de Phone Number [facility] [address] [place] [address] * HOLD GREEN TOP (08/06/2020 4:13 EST) Hold Hold 08/06/2020 5:32 EST [facility] Blood VENOUS BLOOD / Unknown Venipuncture / Unknown 08/06/2020 4:13 EST 08/06/2020 4:19 EST Kylah Larow PA-C LAB INFO SERVICE AND SUPPORT & PHONE RESULT [facility] [address] [place] [address] * HOLD BLUE TOP (08/06/2020 4:13 EST) Hold Hold 08/06/2020 5:32 EST [facility] Blood VENOUS BLOOD / Unknown Venipuncture / Unknown 08/06/2020 4:13 EST 08/06/2020 4:19 EST Kylah Whitaker PA-C LAB INFO SERVICE AND SUPPORT & PHONE RESULT [facility] [address] [place] [address] documented in this encounter Visit Diagnoses Diagnosis [...]
--- OUTSIDE RECORDS SUMMARY | 2024-02-10 01:22 | XMS_ITS | Encounter Summary ---
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) (Primary Dx) Social History Tobacco [...] [facility] Adult Primary Care - [address] [address] Carrington Calderon MD 1 [facility] 1 [place] [address] 02/27/2024 8:30 EDT Telemedicine [facility] Sleep Program - [address] [address] Dwight Colbert [address] [place] [phone] (Fjub) [phone] (Fax) 02/29/2024 10:30 EDT [facility] Radiology Nuclear Medicine and PET - [address] [phone] 02/29/2024 14:30 EDT [facility] Radiology Nuclear Medicine and PET - [address] [id number] 03/01/2024 8:00 EDT [facility]ointment [facility] PET - [address] [id number] 03/01/2024 9:30 EDT [facility] Radiology Nuclear Medicine and PET [address] [id number] documented as of this encounter Visit Diagnoses Diagnosis Type 2 diabetes mellitus with hyperglycemia, with long-term current use of insulin ([facility])- Primary documented in this encounter
--- OUTSIDE RECORDS SUMMARY | 2024-02-10 01:22 | XMS_ITS | Encounter Summary ---
Author Organization [facility] Address [address] [place] [address] Care Team Providers Care Personnel Clerk Name Role Phone Unavailable Primary Care [...] 6:47 EST - 08/04/2020 11:43 EST Emergency [facility] Emergency Department - [address] [address] Benita Sol MD [address] [place] [address], Level 1 [place] [address] Non-intractable vomiting with nausea, unspecified [...] 08/04/2020 11:31 EST -Thank you for choosing [facility] for your medical care today. You [...] foot. * Valencia Red RN - 08/04/2020 0980 EST Pt resting comfortably in stretcher at [...] medical conditions at the [facility] on 08/04/2020. This note was created [...] participated in the medical decision making. CINTHYA uLo is a 35 y.o. female with a [...] for UTI. The patient presented to the [facility] ED endorsing nausea with emesis. Per [...] p.o. intake of ice water without difficulty. [id number] ultrasound was performed and showed no evidence [...] [facility] Adult Primary Care - [address] [phone] Carrington Calderon MD [address] [address] 02/27/2024 8:30 EDT Telemedicine [facility] Sleep Program - [address] [phone] Dwight Colbert [address] [place] [address] [phone] 02/29/2024 10:30 EDT Appointment [facility] Radiology Nuclear Medicine and PET [address] [phone] 02/29/2024 14:30 EDT Appointment [facility] Radiology Nuclear Medicine and PET [address] [phone] 03/01/2024 8:00 EDT Appointment [facility] Radiology Nuclear Medicine and PET - [address] [phone] 03/01/2024 9:30 EDT Appointment [facility] Radiology Nuclear Medicine and PET [address] [phone] documented as of this encounter Procedures Procedure [...] EST) 08/06/2020 10:3 0 EST Scan 2 Milker Machine PROCEDURE/MINOR BRAULIO GICAL ORDERABLES * POCT US ED ABDOMEN (08/04/2020 11:01 EST) Anatomical Region Laterality Modality Ultrasound 08/04/2020 11:0 5 EST Narrative 08/04/2020 19:06 EST [facility] - Ultrasound Exam Date: 08/04/2020 Exam Type: POCT US ED ABDOMEN Autocad: Asuncion Telles Attending: Benita Sol MD Worksheet: [id number] (POCT US ED ABDOMEN) Exam Type: ?? [...] exam was performed and interpreted by the [facility] ED Staff Procedure Note Ismael Ji MD - 08/04/2020 [facility] - Ultrasound Exam Date: 08/04/2020 Exam Type: POCT US ED ABDOMEN Autocad: Asuncion Telles Attending: Benita Sol MD Worksheet: [id number] (POCT US ED ABDOMEN) Exam Type: Clinically [...] exam was performed and interpreted by the [facility] ED Staff Asuncion Telles MD IMG POCT US ORDERABL ES * HOLD SST (08/04/2020 7:18 EST) Hold Hold 08/04/2020 8:32 EST [facility] Blood VENOUS BLOOD / Unknown 08/04/2020 7:18 EST 08/04/2020 7:18 EST Benita Sol MD LAB INFO SERVICE AND SUPPORT & PHONE RESULT Performing Organization Address [facility] Co de Phone Number [facility] [address] [place] [address] * QUANT BETA HCG, (08/04/2020 7:18 EST) Beta HCG Quant, <5 <5 mIU/ml 08/04/2020 8:58 EST [facility] Comment: NOTE: : Negative: [...] BLOOD GA S ORDERABLES Performing Organization Address [facility]/ZIP Co de Phone Number [facility] [address] [place] [address] * EKG 12-LEAD (08/04/2020 7:08 EST) 08/04/2020 7:08 EST Narrative [facility] EKG - 08/06/2020 10:26 EST ?[facility] Emergency ? Test Date: ?2020-08-04 Pat Name: ? CRISTY LUO ?Department: ?? ED ? Room: ? AC16 Gender: ? Female ? Principal Planner: ?? [id number] : ?1985 ? Requested By: GILDA Forman Order Number: [id number] ? Reading MD: ?? LORI MARY MD ? Measurements Intervals ?[place] ? Rate: ? 56 ? P: ?4 WY: ? 135 ?QRS: ?14 QRSD: ? 92 [...] Note Lori Mary MD - 08/06/2020 [facility] Emergency Test Date: 2020-08-04 Pat Name: CRISTY LUO Department: ED Room: [facility] Gender: Female Principal Planner: [id number] : 1985 Requested By: GILDA Forman Order Number: [id number] Reading MD: LORI MARY MD Measurements Intervals [place] Rate: 56 P: 4 WY: 135 QRS: 14 QRSD: 92 T: 7 QT: 447 QTc: 433 Interpretive Statements SINUS BRADYCARDIA WITH OCCASIONAL SUPRAVENTRICULAR PREMATURE COMPLEXES Compared to ECG 06/13/2020 15:41:07 Sinus rhythm no longer present I reviewed the tracing and have either agreed or edited the findings inthis report. Electronically Signed On 08-06-2020 10:26:58 EST by LORI VALLE. Benita Sol MD CARDIAC ECG ORDERABL ES [facility] EKG * LIPASE (08/04/2020 7:02 EST) Lipase 131 <251 U/L 08/04/2020 8:55 [facility] Blood VENOUS BLOOD / Unknown Venipuncture / Unknown 08/04/2020 7:02 EST 08/04/2020 7:05 EST Asuncion Telles MD CHEMISTRY & BLOOD GA S ORDERABLES Performing Organization Address [facility] de Phone Number [facility] [address] [place] [address] * (ABNORMAL) HEPATIC FUNCTION PANEL (ALB,ALK PHOS,ALT,AST,DBIL,TOT SAL,TOT PROT) (08/04/2020 7:02 EST) Pathologist [facility] Total Protein 7.0 6.3 - 8.2 g/dL 08/04/2020 8:55 [facility] Albumin 4.1 3.4 - 4.9 g/dL 08/04/2020 8:55 [facility] Bilirubin, Total <0.5 <1.4 mg/dL 08/05/19 8:55 [facility] Conjugated Bilirubin 0.0 0.0 - 0.3 mg/dL 08/04/2020 8:55 [facility] Unconjugated Bilirubin 0.2 0.0 - 1.1 mg/dL 08/04/2020 8:55 [facility] Alkaline Phosphatase 99 38 - 126 U/L 08/04/2020 8:55 [facility] ALT 16 <35 U/L 08/04/2020 8:55 [facility] AST 62(H) 15 - 46 U/L 08/04/2020 8:55 [facility] Blood VENOUS BLOOD / Unknown Venipuncture / Unknown 08/04/2020 7:02 EST 08/04/2020 7:05 EST Asuncion Telles MD CHEMISTRY & BLOOD GA S ORDERABLES Performing Organization Address City/[facility]/ZIP Co de Phone Number [facility] [address] [place] [id number] * LACTIC ACID (08/04/2020 7:02 EST) Lactic Acid 1.9 <=2.0 mmol/L 08/04/2020 7:31 EST [facility] Blood VENOUS BLOOD / Unknown Venipuncture / Unknown 08/04/2020 7:02 EST 08/04/2020 7:05 EST Andrés Garcia MD CHEMISTRY & BLOOD GA S ORDERABLES [facility] [address] [place] [address] * (ABNORMAL) SCREENING GLUCOSE (08/04/2020 7:02 EST) Glucose, Screening 325(H) 70 - 100 mg/dL 08/04/2020 7:34 EST [facility] Comment:Elevated screening g lucose value greater than 180 mg/dl, please order follow up Hemoglobin A1C. Blood VENOUS BLOOD / Unknown Venipuncture / Unknown 08/04/2020 7:02 EST 08/04/2020 7:05 EST Andrés Garcia MD CHEMISTRY & BLOOD GA S ORDERABLES [facility] [address] [place] [address] * MAGNESIUM (08/04/2020 7:02 EST) Magnesium 1.7 1.7 - 2.8 mg/dL 08/04/2020 7:31 EST [facility] Blood VENOUS BLOOD / Unknown Venipuncture / Unknown 08/04/2020 7:02 EST 08/04/2020 7:05 EST Andrés Garcia MD CHEMISTRY & BLOOD GA S ORDERABLES [facility] [address] [place] [address] * TROPONIN I (08/04/2020 7:02 EST) Troponin I (ng/mL) <0.034 <0.034 ng/mL 08/04/2020 7:43 EST [facility] Blood VENOUS BLOOD / Unknown Venipuncture / Unknown 08/04/2020 7:02 EST 08/04/2020 7:05 EST Narrative [facility] - 08/04/2020 7:43 EST The results of this assay can be falsely lowered due to the consumption of Biotin. Andrés Garcia MD CHEMISTRY & BLOOD GA S ORDERABLES Performing Organization Address City/[facility] Co de Phone Number [facility] [address] [place] [address] * ELECTROLYTES (08/04/2020 7:02 EST) Sodium 138 136 - 145 mEq/L 08/04/2020 7:31 [facility] Potassium 4.1 3.5 - 5.0 mEq/L 08/04/2020 7:31 [facility] Chloride 103 96 - 110 mEq/L 08/04/2020 7:31 [facility] CO2 Total 24 22 - 32 mEq/L 08/04/2020 7:31 [facility] Blood VENOUS BLOOD / Unknown Venipuncture / Unknown 08/04/2020 7:02 EST 08/04/2020 7:05 EST Andrés Garcia MD CHEMISTRY & BLOOD GA S ORDERABLES Performing Organization Address City/[facility]/ZIP Co de Phone Number [facility] [address] [place] [address] * CREATININE (08/04/2020 7:02 EST) Creatinine 0.55 0.52 - 1.04 mg/dL 08/04/2020 7:31 [facility] eGFR 122 >60 mL/min/1.7 3m2 08/04/2020 7:31 [facility] Comment:eGFR calculated gil curtis CKD-EPI equation for non- Americans. Multiply eGFR by 1.16 for patients. Blood VENOUS BLOOD / Unknown Venipuncture / Unknown 08/04/2020 7:02 EST 08/04/2020 7:05 EST Andrés Garcia MD CHEMISTRY & BLOOD GA S ORDERABLES Performing Organization Address City/[facility] Co de Phone Number [facility] [address] [place] [address] * BUN (08/04/2020 7:02 EST) BUN 12 10 - 26 mg/dL 08/04/2020 7:31 EST [facility] Blood VENOUS BLOOD / Unknown Venipuncture / Unknown 08/04/2020 7:02 EST 08/04/2020 7:05 EST Andrés Garcia MD CHEMISTRY & BLOOD GA S ORDERABLES Performing Organization Address [facility] de Phone Number [facility] [address] [place] [address] * (ABNORMAL) COMPLETE BLOOD COUNT AND DIFFERENTIAL (08/04/2020 7:02 EST) WBC 16.23(H) 4.00 - 12.40 K/cmm 08/04/2020 7:23 [facility] RBC 4.57 3.86 - 5.04 M/cmm 08/04/2020 7:23 [facility] Hemoglobin 14.1 11.6 - 15.2 gm/dL 08/04/2020 7:23 [facility] HCT 39.2 34.9 - 44.4 % 08/04/2020 7:23 [facility] MCV 86 81 - 98 fl 08/04/2020 7:23 [facility] MCH 30.9 26.7 - 33.3 pg 08/04/2020 7:23 [facility] MCHC 36.0(H) 32.1 - 35.9 gm/dL 08/04/2020 7:23 [facility] RDW-CV 12.1 <14.7 % 08/04/2020 7:23 [facility] RDW-SD 37.6 <50.4 fl 08/04/2020 7:23 [facility] PLT 395(H) 141 - 377 K/cmm 08/04/2020 7:23 [facility] MPV 10.0 9.5 - 12.7 fl 08/04/2020 7:23 [facility] % Neutrophils 70.8 % 08/04/2020 7:23 [facility] % Lymphocytes 20.3 % 08/04/2020 7:23 [facility] % Monocytes 6.0 % 08/04/2020 7:23 [facility] % Eosinophils 1.8 % 08/04/2020 7:23 [facility] % Basophils 0.5 % 08/04/2020 7:23 [facility] % Immature Grans 0.6 % 08/05/19 7:23 [facility] Absolute Neutrophils 11.51(H) 2.20 - 8.85 K/cmm 08/04/2020 7:23 [facility] Absolute Lymphocytes 3.29 1.09 - 3.30 K/cmm 08/04/2020 7:23 [facility] Absolute Monocytes 0.97(H) 0.10 - 0.80 K/cmm 08/04/2020 7:23 [facility] Absolute Eosinophils 0.29 0.03 - 0.61 K/cmm 08/04/2020 7:23 [facility] ABS Basophils 0.08 0.01 - 0.11 K/cmm 08/04/2020 7:23 [facility] Absolute Immature Grans 0.09(H) 0.00 - 0.06 K/cmm 08/04/2020 7:23 [facility] Type of Differential: Auto 08/04/2020 7:23 [facility] Blood VENOUS BLOOD / Unknown Venipuncture / Unknown 08/04/2020 7:02 EST 08/04/2020 7:05 EST Andrés Garcia MD PACKAGES & DNA PROBE ORDERABLES Performing Organization Address City/[facility]/ZIP Co de Phone Number [facility] [address] [place] [address] * (ABNORMAL) POCT GLUCOSE, INTERFACED (08/04/2020 6:59 EST) Glucose, POC 328(H) 70 - 100 mg/dL 08/04/2020 7:02 EST [facility] mission support specialist ID [id number] 08/04/2020 7:02 EST [facility] HN LAB POC COMMENT (GLUCOSE) Test Performed by Nursing Services 08/04/2020 7:02 EST [facility] Blood CAPILLARY BLOOD / Unknown 08/04/2020 6:59 EST 08/04/2020 7:02 EST Provider Unknown POINT OF CARE TEST O RDERABLES Performing Organization Address City/[facility] Co de Phone Number [facility] [address] [place] [address] documented in this encounter Visit Diagnoses Diagnosis [...]
--- OUTSIDE RECORDS SUMMARY | 2024-02-10 01:22 | XMS_ITS | Encounter Summary ---
Author Organization [facility] Address [address] [place] [address] Care Team Providers Care Engineering Geologist Name Role Phone Unavailable Primary Care Provider [...] [facility] Adult Primary Care - [address] 383191 Carrington Calderon MD [address] [phone] 02/27/2024 8:30 EDT Telemedicine [facility] Sleep Program - [address] [phone] Dwight Colbert [address] [place] [phone] 02/29/2024 10:30 EDT Appointment [facility] Radiology Nuclear Medicine and PET - [address] [phone] 02/29/2024 14:30 EDT Appointment [facility] Radiology Nuclear Medicine and PET - [address] [phone] 03/01/2024 8:00 EDT Appointment [facility] Radiology Nuclear Medicine and PET - [facility] [address] [place], [place] [phone] 03/01/2024 9:30 EDT Appointment [facility] Radiology Nuclear Medicine and PET - [address] [phone] documented as of this encounter Visit Diagnoses Not on filedocumented in this encounter
--- OUTSIDE RECORDS SUMMARY | 2024-02-10 01:22 | XMS_ITS | Encounter Summary ---
Author Organization [facility] Address [address] [place] [address] Care Team Providers Care Special Assemblies Supervisor Name Role Phone Unavailable Primary Care [...] [facility] Adult Primary Care - [address] [phone] Carrington Calderon MD [address] [phone] 02/27/2024 8:30 EDT Telemedicine [facility] Sleep Program - [address] 784311 Dwight Colbert [address] [place] [phone] 02/29/2024 10:30 EDT Appointment [facility] Radiology Nuclear Medicine and PET - [address] [phone] 02/29/2024 14:30 EDT Appointment [facility] Radiology Nuclear Medicine and PET - [address] [phone] 03/01/2024 8:00 EDT Appointment [facility] Radiology Nuclear Medicine and PET - [facility] [address] [place], [place] [phone] 03/01/2024 9:30 EDT Appointment [facility] Radiology Nuclear Medicine and PET - [address] [phone] documented as of this encounter Visit Diagnoses Not on filedocumented in this encounter
--- OUTSIDE RECORDS SUMMARY | 2024-02-10 01:22 | XMS_ITS | Encounter Summary ---
Author Organization [facility] Address [address] [place] [address] Care Team Providers Care French Polisher Name Role Phone Unavailable Primary Care Provider Unavailabl e Reason for Visit * Reason Comments Foot Problem Encounter Details Date Type Department Care Team (Latest Contact Info) Description 07/02/2020 14:30 EST Office Visit [facility] Foot & Ankle Program - [address] [address] Elza Navarro DPM [address] [place] [phone] Osteomyelitis of left foot, unspecified type ([facility]) (Primary Dx); Type 2 diabetes mellitus with diabetic polyneuropathy, with long-term current use of insulin ([facility]) Social History Tobacco Use Types Packs/Day Years [...] 1. Osteomyelitis of left foot, unspecified type ([facility]) 2. Type 2 diabetes mellitus with diabetic polyneuropathy, with long-term current use of insulin ([facility]) No orders of the defined types were [...] speech recognition software or keyboard data analytics analyst techniques. Minor irregularities or keyboarding misprints may be present documented in this encounter Plan of Treatment Upcoming Encounters Date Type Department Care Team (Late st Contact Info) Description 02/21/2024 9:45 EDT Office Visit [facility] Adult Primary Care - [address] [phone] Carrington Calderon MD 1 [facility] Level 1 [place] [phone] 02/27/2024 8:30 EDT Telemedicine [facility] Sleep Program - [address] [place] [address] Dwight Colbert [address] [place] [address] 02/29/2024 10:30 ED[facility] Rad[facility] Nuclear Medicine and PET - [address] [address] 02/29/2024 14:30 EDT [facility] [place] [facility] and PET - [address] [phone] 03/01/2024 8:00 EDT Appointment [facility] Radiology Nuclear Medicine and PET - [address] [phone] 03/01/2024 9:30 EDT Appointment [facility] Radiology Nuclear Medicine and PET - [address] [address] documented as of this encounter Visit Diagnoses Diagnosis Osteomyelitis of left foot, unspecified type (HCC-CMS)- Primary Type 2 diabetes mellitus with diabetic polyneuropathy, with long-term current use of insulin ([facility]) documented in this encounter
--- OUTSIDE RECORDS SUMMARY | 2024-02-10 01:22 | XMS_ITS | Encounter Summary ---
Author Organization [facility] Address [address] [place] [address] Care Team Providers Care Floral Clerk Name Role Phone Unavailable Primary Care Provider Unavailabl e Encounter Details Date Type Department Care Team (Late st Contact Info) Description 07/28/2020 11:15 EST Phlebotomy Only [facility] 2 Phlebotomy [address] [place] [address] Fusion Analyst, Acc Phlebotomy Encounter for sterilization Social History [...] [facility] - [address] [phone] Carrington Calderon MD 1 [facility] 1 [place] [phone] 02/27/2024 8:30 EDT Telemedicine [facility] Sleep Program - [address] 364271 Dwight Colbert [address] [place] [phone] 02/29/2024 10:30 EDT [facility] - [address] [phone] 02/29/2024 14:30 EDT Appointment [facility] Radiology Nuclear Medicine and PET - [facility] [address] [place] [address] 03/01/2024 8:00 EDT Appointment [facility] Radiology Nuclear Medicine and [facility] [address] [place] [address] 03/01/2024 9:30 EDT Appointment [facility] Radiology Nuclear Medicine and PET [address] [address] documented as of this encounter Procedures Procedure Name Priority Date/Time Associated Diagnosis Comments SCREENING GLUCOSE Routine 07/28/2020 11: 25 EST Encounter for sterilization documented in this encounter Results * (ABNORMAL) SCREENING GLUCOSE (07/28/2020 11:25 EST) Glucose, Screening 260(H) 70 - 100 mg/dL 07/28/2020 12:39 EST [facility] Comment:Elevated screening g lucose value greater than 180 mg/dl, please order follow up Hemoglobin A1C. Blood VENOUS BLOOD / Unknown Venipuncture / Unknown 07/28/2020 11:25 EST 07/28/2020 12:04 EST Whit Rae MD CHEMISTRY & BLOOD GA S ORDERABLES [facility] [address] [place] [address] documented in this encounter Visit Diagnoses Diagnosis Encounter for sterilization Sterilization documented in this encounter
--- OUTSIDE RECORDS SUMMARY | 2024-02-10 01:22 | XMS_ITS | Encounter Summary ---
Author Organization [facility] Address [address] [place] [address] Care Team Providers Care Assembly Supervisor Name Role Phone Unavailable Primary Care Provider Unavailabl e Reason for Visit * Reason Onset Date Comments No Show 06/27/2020 Encounter Details Date Type Department Care Team (Late st Contact Info) Description 06/27/2020 Telephone [facility] Adult Primary Care - [address] [phone] Tonja Alejandro PA-C [address] [place] [address] [place] [phone] No Show Social History Tobacco Use [...] Visit [facility] Adult Primary Care - [address] [address] Carrington Calderon MD [address] [phone] 02/27/2024 8:30 EDT Telemedicine [facility] Sleep Program - [address] [address] Dwight Colbert [address] [place] [address] 02/29/2024 10:30 EDT Appointment [facility] Radiology Nuclear Medicine and PET - [address] [phone] 02/29/2024 14:30 EDT Appointment [facility] Radiology Nuclear Medicine and PET [address] 150461 03/01/2024 8:00 EDT Appointment [facility] Radiology Nuclear Medicine and PET - [address] 338321 03/01/2024 9:30 EDT Appointment [facility] Radiology Nuclear Medicine and PET [address] [phone] documented as of this encounter Visit Diagnoses Not on filedocumented in this encounter
--- OUTSIDE RECORDS SUMMARY | 2024-02-10 01:22 | XMS_ITS | Encounter Summary ---
Author Organization [facility] Address [address] [place] [address] Care Team Providers Care Jersey Knitter Name Role Phone Unavailable Primary Care Provider Unavailabl e Reason for Visit * Reason Onset Date Comments Other 06/26/2020 Encounter Details Date Type Department Care Team (Late st Contact Info) Description 06/26/2020 Telephone [facility] OBGYN Services - [facility] [address] [place] [address] Rosa Chang, MARCELO Other Social History Tobacco [...] now. Is aware of bleeding precautions. Has FLY FRAME TENDER on-call number as well. Will route to beta book team to please advise further/follow up. * Telephone Encounter - Rosa Salazar RN - 06/26/2020 4909 EST Non-identified VM, left general message: nurse calling from [facility] Women???[facility] clinic, calling to check in as [...] take you to the ER.Please call the FLY FRAME TENDER nurses at [phone] when you receive this message. documented in this encounter Plan of Treatment Upcoming Encounters Date Type Department Care Team (Late st Contact Info) Description 02/21/2024 9:45 EDT Office Visit [facility] Adult Primary Care - [address] [phone] Carrington Calderon MD 1 [facility] Level 1 [place] [address] 02/27/2024 8:30 EDT Telemedicine [facility] Sleep Program - [place] [address] [place] [address] Dwight Colbert [address] [place] [address] 02/29/2024 10:30 EDT [facility] Radiology Nuclear Medicine and PET - [address] [address] 02/29/2024 14:30 EDT Appointment [facility] Radiology Nuclear Medicine and PET - [address] [id number] 03/01/2024 8:00 EDT Appointment [facility] Radiology Nuclear Medicine and PET - [address] [phone] 03/01/2024 9:30 EDT Appointment [facility] Radiology Nuclear Medicine and PET - [address] [address] documented as of this encounter Visit Diagnoses Not on filedocumented in this encounter
--- OUTSIDE RECORDS SUMMARY | 2024-02-10 01:22 | XMS_ITS | Encounter Summary ---
Author Organization [facility] Address [address] [place] [address] Care Team Providers Care Ccu Nurse Name Role Phone Unavailable Primary Care [facility] - [address] [phone] Carrington Calderon MD [address] [phone] 02/27/2024 8:30 EDT Telemedicine [facility] Sleep Program - [address] [phone] Dwight Colbert [address] [place] [address] [phone] 02/29/2024 10:30 EDT Appointment [facility] Radiology Nuclear Medicine and PET - [address] [phone] 02/29/2024 14:30 EDT Appointment [facility] Radiology Nuclear Medicine and PET - [address] [phone] 03/01/2024 8:00 EDT Appointment [facility] Radiology Nuclear Medicine and PET - [facility] [address] [place], [place] [phone] 03/01/2024 9:30 EDT Appointment [facility] Radiology Nuclear Medicine and PET - [address] [phone] documented as of this encounter Visit Diagnoses Not on filedocumented in this encounter
--- OUTSIDE RECORDS SUMMARY | 2024-02-10 01:22 | XMS_ITS | Encounter Summary ---
Author Organization [facility] Address [address] [place] [address] Care Team Providers Care Freight Service Inspector Name Role Phone Unavailable Primary Care Provider Unavailabl e Reason for Visit * Reason Comments Telemedicine Video Visit * Consult (Routine) - Order Cancelled Specialty Diagnoses / Procedures Referred By Contlesli t Referred To Contact Endocrinology Diagnoses Type 2 diabetes mellitus with hyperglycemia, with long-term current use of insulin ([facility]) Sara Zafar NP [address] [place] [phone] [facility] Endocrinology [address] [place] [id number] Referral ID Status Reason Start Date Expiration Date Visits Requested Visits Authorized [id number] Order Cancelled Specialty Services Required 0 1 1 Encounter Details Date Type Department Care Team (Late st Contact Info) Description 07/01/2020 13:00 EST Nutrition [facility] Endocrinology - [address] CDE [address] [place] [phone] Type 2 diabetes mellitus with hyperglycemia, with long-term current use of insulin ([facility]) (Primary Dx) Social History Tobacco [...] Bran cereal with milk and coffee Lunch: Windsor sandwich on whole grain bread Dinner: Chicken, [...] [facility] Adult Primary Care - [address] [address] Carrington Calderon MD [address] [phone] 02/27/2024 8:30 EDT Telemedicine [facility] Sleep Program - [address] [phone] Dwight Colbert [address] [place] [address] [phone] 02/29/2024 10:30 EDT Appointment [facility] Radiology Nuclear Medicine and PET [address] [id number] 02/29/2024 14:30 EDT Appointment [facility] Radiology Nuclear Medicine and PET [address] [id number] 03/01/2024 8:00 EDT Appointment [facility] Radiology Nuclear Medicine and PET [address] [id number] 03/01/2024 9:30 EDT Appointment [facility] Radiology Nuclear Medicine and PET [address] [phone] documented as of this encounter Visit Diagnoses Diagnosis Type 2 diabetes mellitus with hyperglycemia, with long-term current use of insulin ([facility])- Primary documented in this encounter
--- OUTSIDE RECORDS SUMMARY | 2024-02-10 01:22 | XMS_ITS | Encounter Summary ---
Author Organization [facility] Address [address] [place] [address] Care Team Providers Care Market Manager Name Role Phone Unavailable Primary Care Provider Unavailabl e Reason for Visit * Reason Onset Date Comments No Show 07/16/2020 Yohannes 07/15/20 Encounter Details Date Type Department Care Team (Late st Contact Info) Description 07/16/2020 Telephone [facility] Endocrinology - [address] CDE [address] [facility] [address] [place] [phone] No Show (Yohannes 07/15/20) Social [...] Visit [facility] Adult Primary Care [address] [address] Carrington Calderon MD 1 [facility] 1 [place] [address] 02/27/2024 8:30 EDT Telemedicine [facility] Sleep Program - [address] [address] Dwight Colbert [address] [place] [address] [phone] 02/29/2024 10:30 EDT [facility]ointment [facility] Radiology Nuclear Medicine and PET - [address] [id number] 02/29/2024 14:30 EDT Appointment [facility] Radiology Nuclear Medicine and PET - [address] 535171 03/01/2024 8:00 EDT Appointment [facility] Radiology Nuclear Medicine and PET - [address] [id number] 03/01/2024 9:30 EDT Appointment [facility] Radiology Nuclear Medicine and PET - [address] [phone] documented as of this encounter Visit Diagnoses Not on filedocumented in this encounter
--- OUTSIDE RECORDS SUMMARY | 2024-02-10 01:22 | XMS_ITS | Encounter Summary ---
Author Organization [facility] Address [address] [place] [address] Care Team Providers Care Retail Presentation Specialist Name Role Phone Unavailable Primary Care Provider Unavailabl e Reason for Visit * Reason Comments Pre-op Exam Encounter Details Date Type Department Care Team (Late st Contact Info) Description 07/28/2020 10:30 EST Office Visit [facility] OBGYN Services - [facility] [address] [place] [address] Fernanda Egan, DO [address] [place] [phone] Encounter for sterilization (Primary Dx) Social History [...] Egan D.O. 07/28/2020 11:05 Obstetrics/Gynecology PGY-1 Pager #[phone] * Whit Rae MD - 07/28/2020 1030 [...] Info) Description 02/21/2024 9:45 EDT Office Visit [facility] Adult Primary Care - [address] [phone] Carrington Calderon MD [address] [phone] 02/27/2024 8:30 EDT Telemedicine [facility] Sleep Program - [address] [phone] Dwight Colbert [address] [place] [address] 02/29/2024 10:30 EDT Appointment [facility] Radiology Nuclear Medicine and PET - [address] [id number] 02/29/2024 14:30 EDT Appointment [facility] Radiology Nuclear Medicine and PET [address] [phone] 03/01/2024 8:00 EDT Appointment [facility] Radiology Nuclear Medicine and PET [address] [phone] 03/01/2024 9:30 EDT Appointment [facility] Radiology Nuclear Medicine and PET [address] [phone] documented as of this encounter Procedures Procedure Name Priority Date/Time Associated Diagnosis Comments HEMOGLOBIN A1C Routine 07/28/2020 11:25 EST Encounter for sterilization documented in this encounter Results * (ABNORMAL) SCREENING GLUCOSE (07/28/2020 11:25 EST) Glucose, Screening 260(H) 70 - 100 mg/dL 07/28/2020 12:39 EST [facility] Comment:Elevated screening g lucose value greater than 180 mg/dl, please order follow up Hemoglobin A1C. Blood VENOUS BLOOD / Unknown Venipuncture / Unknown 07/28/2020 11:25 EST 07/28/2020 12:04 EST Whit Rae MD CHEMISTRY & BLOOD GA S ORDERABLES [facility] [address] [place] [address] * (ABNORMAL) HEMOGLOBIN A1C (07/28/2020 11:25 EST) Hemoglobin A1c 9.7(H) <5.7 % 07/28/2020 14:20 EST [facility] Comment: Glycemic Status References: Normal: [...] Est Avg Glucose 232 mg/dL 14:20 EST [facility] Comment:The eAG represents t he A1c result expressed as average glucose in mg/dL. Blood VENOUS BLOOD / Unknown Venipuncture / Unknown 07/28/2020 11:25 EST 07/28/2020 11:50 EST Whit Rae MD CHEMISTRY & BLOOD GA S ORDERABLES [facility] [address] [place] [address] documented in this encounter Visit Diagnoses Diagnosis Encounter for sterilization- Primary Sterilization documented in this encounter
--- OUTSIDE RECORDS SUMMARY | 2024-02-10 01:22 | XMS_ITS | Encounter Summary ---
Author Organization [facility] Address [address] [place] [address] Care Team Providers Care Bingo Caller Name Role Phone Unavailable Primary Care Provider Unavailabl e Encounter Details Date Type Department Care Team (Late st Contact Info) Description 06/25/2020 11:45 EST Phlebotomy Only [facility] 2 Phlebotomy [address] [place] [address] Measurement Department Chief Clerk, Acc Phlebotomy of unknown anatomic location Social [...] [facility] Adult [facility] Care - [address] [phone] Carrington Calderon MD [address] [phone] 02/27/2024 8:30 EDT Telemedicine [facility] Sleep Program - [address] 703121 Dwight Colbert [address] [place] [address] [phone] 02/29/2024 10:30 EDT Appointment [facility] Radiology Nuclear Medicine and PET - [address] [phone] 02/29/2024 14:30 EDT Appointment [facility] Radiology Nuclear Medicine and PET [facility] [address] [place] [address] 03/01/2024 8:00 EDT Appointment [facility] Radiology Nuclear Medicine and PET [address] [address] 03/01/2024 9:30 EDT Appointment [facility] Radiology Nuclear Medicine and PET [address] [address] documented as of this encounter Procedures Procedure Name Priority Date/Time Associated Diagnosis Comments QUANT BETA HCG, Routine 06/25/2020 10:45 EST of unknown anatomic location documented in this encounter Results * (ABNORMAL) QUANT BETA HCG, (06/25/2020 10:45 EST) Beta HCG Quant, 49(H) <5 mIU/ml 06/25/2020 12:28 EST [facility] Comment: NOTE: : Negative: [...] MD CHEMISTRY & BLOO D GAS ORDERABLES [facility] [address] [place] [address] documented in this encounter Visit Diagnoses Diagnosis of unknown anatomic location state, incidental documented in this encounter
--- OUTSIDE RECORDS SUMMARY | 2024-02-10 01:22 | XMS_ITS | Encounter Summary ---
Author Organization [facility] Address [address] [place] [address] Care Team Providers Care Customer Consulting Manager Name Role Phone Unavailable Primary Care [...] [facility] Adult Primary Care - [address] 546361 Carrington Calderon MD [address] [phone] 02/27/2024 8:30 EDT Telemedicine [facility] Sleep Program - [address] [phone] Dwight Colbert [address] [place] [address] 480421 02/29/2024 10:30 EDT Appointment [facility] Radiology Nuclear Medicine and PET - [address] [phone] 02/29/2024 14:30 EDT Appointment [facility] Radiology Nuclear Medicine and PET - [address] [phone] 03/01/2024 8:00 EDT Appointment [facility] Radiology Nuclear Medicine and PET - [address] [phone] 03/01/2024 9:30 EDT Appointment [facility] Radiology Nuclear Medicine and PET - [address] [phone] documented as of this encounter Visit Diagnoses Not on filedocumented in this encounter Additional Health Concerns Infection Onset Date Last Indicated Resolved Time R/O COVID-19 08/04/2020 08/04/2020 08/04/2020 11:4 0 EST documented as of this encounter
--- OUTSIDE RECORDS SUMMARY | 2024-02-10 01:22 | XMS_ITS | Encounter Summary ---
Author Organization [facility] Address [address] [place] [address] Care Team Providers Care Hotel Associate Name Role Phone Unavailable Primary Care Provider Unavailabl e Reason for Visit * Reason Onset Date Comments COVID-19 06/30/2020 Encounter Details Date Type Department Care Team (Late st Contact Info) Description 06/30/2020 Orders Only [facility] OBGYN Services - [address] [address] Susana Tomlinson, RN Sterilization (Primary Dx) Social [facility] - [address] 129031 Carrington Calderon MD [address] [phone] 02/27/2024 8:30 EDT Telemedicine [facility] Sleep Program - [address] [address] Dwight Colbert [address] [place] [address] 02/29/2024 10:30 EDT Appointment [facility] Radiology Nuclear Medicine and PET - [address] [address] 02/29/2024 14:30 EDT Appointment [facility] Radiology Nuclear Medicine and PET - [address] [phone] 03/01/2024 8:00 EDT Appointment [facility] Radiology Nuclear Medicine and PET - [address] [phone] 03/01/2024 9:30 EDT [facility]ment [facility] Radiology Nuclear Medicine and PET - [address] [phone] documented as of this encounter Visit Diagnoses Diagnosis Sterilization- Primary documented in this encounter
--- OUTSIDE RECORDS SUMMARY | 2024-02-10 01:22 | XMS_ITS | Encounter Summary ---
Author Organization [facility] Address [address] [place] [address] Care Team Providers Care Hospital Nurse Name Role Phone Unavailable Primary Care Provider Unavailabl e Reason for Visit * Reason Comments Telemedicine Video Visit Encounter Details Date Type Department Care Team (Late st Contact Info) Description 07/02/2020 11:30 EST Telemedicine [facility] Infectious Disease - [address] 653151 Mushtaq Light, DO 111 [facility], Level 5 [place] [address] Osteomyelitis of left foot, unspecified [...] Bone biopsy was polymicrobial (MSSA,??GBS,??S.??anginosus, prevotella) and??MRI [id number] distal phalanx osteomyelitis with possible early proximal [...] Spine- told years ago ??? Diabetes ([facility]) ? A1c 10.3 on 11/28/2019 ??? [...] FOREIGN BODIES:??None ?? SOCIAL HISTORY:? 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 Attends episcopalian service: Not on file ? Active member [...] few strep anginosus, moderate prevotella 05/03 covid-19 FISH TENDER swab: negative 05/04 blood cultures:06/09 bottles growing [...] [facility] Adult Primary Care - [address] [phone] Carrington Calderon MD 1 [facility] 1 [place] [phone] 02/27/2024 8:30 EDT Telemedicine [facility] Sleep Program - [address] [phone] Dwight Colbert [address] [place] [address] [phone] 02/29/2024 10:30 EDT Appointment [facility] Radiology Nuclear Medicine and PET - [address] [phone] 02/29/2024 14:30 EDT Appointment [facility] Radiology Nuclear Medicine and PET - [address] [address] 03/01/2024 8:00 EDT Appointment [facility] Radiology Nuclear Medicine and PET - [address] [address] 03/01/2024 9:30 EDT Appointment [facility] Radiology Nuclear Medicine and PET - [address] [address] documented as of this encounter Visit Diagnoses Diagnosis Osteomyelitis of left foot, unspecified type (HCC-CMS)- Primary documented in this encounter
--- OUTSIDE RECORDS SUMMARY | 2024-02-10 01:22 | XMS_ITS | Encounter Summary ---
Author Organization [facility] Address [address] [place] [address] Care Team Providers Care Referral Management Liaison Name Role Phone Unavailable Primary Care Provider Unavailabl e Encounter Details Date Type Department Care Team (Late st Contact Info) Description 06/26/2020 Documentation Visit [facility] Obstetrics & Midwifery - [address] [phone] Nohemy Sales MD 111 [facility], Level 4 [place] [address] Social History Tobacco Use Types [...] 1 pad/hr and 10/10 pain. Will have BUSINESS EXCELLENCE LEADER RN call today Nohemy Sales MD documented in this encounter Plan of Treatment Upcoming Encounters Date Type Department Care Team (Late st Contact Info) Description 02/21/2024 9:45 EDT Office Visit [facility] [place] [address] Carrington Calderon MD 1 [facility] 1 [place] [address] 02/27/2024 8:30 EDT Telemedicine [facility] Sleep Program - [address] [place] [address] [place] [address] ColbertDwight garner [address] [place] [address] 02/29/2024 10:30 EDT [facility]ointment [facility] Radiology Nuclear Medicine and PET - [address] [address] 02/29/2024 14:30 EDT Appointment [facility] Radiology Nuclear Medicine and PET - [address] [phone] 03/01/2024 8:00 EDT Appointment [facility] Radiology Nuclear Medicine and PET - [address] [address] 03/01/2024 9:30 EDT Appointment [facility] Radiology Nuclear Medicine and PET - [address] [address] documented as of this encounter Visit Diagnoses Not on filedocumented in this encounter
--- OUTSIDE RECORDS SUMMARY | 2024-02-10 01:22 | XMS_ITS | Encounter Summary ---
Author Organization [facility] Address [address] [place] [address] Care Team Providers Care Medical Information Officer Name Role Phone Unavailable Primary Care Provider Unavailabl e Reason for Visit * Reason Onset Date Comments Surgery Scheduling 06/30/2020 Encounter Details Date Type Department Care Team (Late st Contact Info) Description 06/30/2020 Telephone [facility] OBGYN Services - [address] [phone] Charu Flynn MD 111 [facility], Level 4 [place] [address] Surgery Scheduling Social History Tobacco [...] Visit [facility] Adult Primary Care - [address] [address] Carrington Calderon MD 1 [facility] 1 [place] [address] 02/27/2024 8:30 EDT Telemedicine [facility] Sleep Program - [address] [address] Dwight Colbert [address] [place] [address] [phone] 02/29/2024 10:30 EDT [facility]ment [facility] Radiology Nuclear Medicine and PET [address] [phone] 02/29/2024 14:30 EDT Appointment [facility] Radiology Nuclear Medicine and PET [address] 569871 03/01/2024 8:[address] [facility] Radiology Nuclear Medicine and PET - [address] [phone] 03/01/2024 9:30 EDT Appointment [facility] Radiology Nuclear Medicine and PET [address] 287001 documented as of this encounter Visit Diagnoses Not on filedocumented in this encounter
--- OUTSIDE RECORDS SUMMARY | 2024-02-10 01:22 | XMS_ITS | Encounter Summary ---
Author Organization [facility] Address [address] [place] [address] Care Team Providers Care Ribbon Winder Name Role Phone Unavailable Primary Care Provider Unavailabl e Reason for Visit * Reason Comments Follow-up Encounter Details Date Type Department Care Team (Latest Contact Info) Description 08/01/2020 15:00 EST Office Visit [facility] Adult Primary Care - [address] [phone] Tonja Alejandro PA-C [address] [place] [address] [place] [phone] Musculoskeletal pain (Primary Dx); Type 2 diabetes mellitus with hyperosmolarity without coma, with long-term current use of insulin ([facility]); Neuropathy; Depression, unspecified depression type; Chronic [...] miscarriage. She has been following up with BLADDER CLEANER and is ultimately scheduled for hysterectomy. This [...] healthy eating -Continue to follow-up with a security attendant History of multiple miscarriages -Continue follow-up with FIRE ENGINE PUMP OPERATOR -Plan for hysterectomy next month Left toe [...] health, patient is interested in seeing a licensed social worker. Will order this. Chronic back pain -Start with x-rays of thoracic and lumbar spine. -Consider MRI of thoracic spine/lumbar spine due to radicular pain Will call patient on Tuesday for further insulin instructions. Tonja Alejandro PA-C [facility] Adult Primary Care-[place] 08/01/2020 16:34 I spent a total of [...] [facility] - [address] [phone] Carrington Calderon MD [address] [phone] 02/27/2024 8:30 EDT Telemedicine [facility] Sleep Program - [address] [phone] Dwight Colbert [address] [place] [address] [phone] 02/29/2024 10:30 EDT Appointment [facility] Radiology Nuclear Medicine and PET - [address] 947161 02/29/2024 14:30 EDT Appointment [facility] Radiology Nuclear Medicine and PET - [address] [phone] 03/01/2024 8:00 EDT Appointment [facility] Radiology Nuclear Medicine and PET - [address] [address] 03/01/2024 9:30 EDT Appointment [facility] Radiology Nuclear Medicine and PET - [address] [address] documented as of this encounter Visit Diagnoses Diagnosis Musculoskeletal pain- Primary Mylagia and myositis, unspecified Type 2 diabetes mellitus with hyperosmolarity without coma, with long-term current use of insulin ([facility]) Neuropathy Mononeuritis of unspecified site Depression, unspecified [...]
--- OUTSIDE RECORDS SUMMARY | 2024-02-10 01:22 | XMS_ITS | Encounter Summary ---
Author Organization [facility] Address [address] [place] [address] Care Team Providers Care Manager Training Name Role Phone Unavailable Primary Care Provider Unavailabl e Reason for Visit * Reason Onset Date Comments Follow-up 06/25/2020 Encounter Details Date Type Department Care Team (Late st Contact Info) Description 06/25/2020 Telephone [facility] OBGYN Services - [facility] [address] [place], [place] [phone] Susana Tomlinson, RN Follow-up Social History Tobacco [...] Encounter - Susana Tomlinson RN - 06/25/2020 124 EST Spoke with Stella: advised HCG result [...] [facility] Adult Primary Care - [address] [phone] Carrington Calderon MD [address] [address] 02/27/2024 8:30 EDT Telemedicine [facility] Sleep Program - [address] 305221 Dwight Colbert [address] [place] [address]1981 02/29/2024 10:30 EDT Appointment [facility] Radiology Nuclear Medicine and PET - [address] [phone] 02/29/2024 14:30 EDT Appointment [facility] Radiology Nuclear Medicine and PET [address] [phone] 03/01/2024 8:00 EDT Appointment [facility] Radiology Nuclear Medicine and PET [address] [phone] 03/01/2024 9:30 EDT Appointment [facility] Radiology Nuclear Medicine and PET [address] [phone] documented as of this encounter Visit Diagnoses Not on filedocumented in this encounter
--- OUTSIDE RECORDS SUMMARY | 2024-02-10 01:22 | XMS_ITS | Encounter Summary ---
Author Organization [facility] Address [address] [place] [address] Care Team Providers Care Material Preparation Worker Name Role Phone Unavailable Primary Care Provider Unavailabl e Encounter Details Date Type Department Care Team (Late st Contact Info) Description 06/26/2020 Orders Only [facility] OBGYN Services - [facility] [address] [place], [place] [phone] Marisa Tony MD [address] [place] [phone] Social History Tobacco Use Types Packs/Day Years [...] for tramadol 50mg. Instructed patient to call cardiopulmonary supervisor number if sx worsen. Marisa Tony MD Senior Staff Consultant PGY-1 Pager [phone] documented in this encounter Plan of Treatment Upcoming Encounters Date Type Department Care Team (Late st Contact Info) Description 02/21/2024 9:45 EDT Office Visit [facility] Adult Primary Care - [address] 664211 Carrington Calderon MD [address] [address] 02/27/2024 8:30 EDT Telemedicine [facility] Sleep Program - [address] [phone] Diwght Colbert [address] [place] [address] 740471 02/29/2024 10:30 EDT Appointment [facility] Radiology Nuclear Medicine and PET [address] 659471 02/29/2024 14:30 EDT Appointment [facility] Radiology Nuclear Medicine and PET [address] [id number] 03/01/2024 8:00 EDT Appointment [facility] Radiology Nuclear Medicine and PET [address] 557661 03/01/2024 9:30 EDT Appointment [facility] Radiology Nuclear Medicine and PET [address] [phone] documented as of this encounter Visit Diagnoses Not on filedocumented in this encounter
--- OUTSIDE RECORDS SUMMARY | 2024-02-10 01:22 | XMS_ITS | Encounter Summary ---
Author Organization [facility] Address [address] [place] [address] Care Team Providers Care Inspector Fabric Name Role Phone Unavailable Primary Care Provider Unavailabl e Reason for Visit * Reason Onset Date Comments Follow-up 06/27/2020 Encounter Details Date Type Department Care Team (Late st Contact Info) Description 06/27/2020 Telephone [facility] OBGYN Services - [facility] [address] [place] [address] Susana Tomlinson, RN Follow-up Social History Tobacco [...] [facility] Adult Primary Care - [address] 495601 Carrington Calderon MD 1 [facility] 1 [place] [address] 02/27/2024 8:30 EDT Telemedicine [facility] Sleep Program - [address] 258321 Dwight Colbert [address] [place] [address] [phone] 02/29/2024 10:30 EDT Appointment [facility] Radiology Nuclear Medicine and PET - [address] [id number] 02/29/2024 14:30 EDT Appointment [facility] Radiology Nuclear Medicine and PET - [address] [id number] 03/01/2024 8:00 EDT Appointment [facility] Radiology Nuclear Medicine and PET - [address] [id number] 03/01/2024 9:30 EDT Appointment [facility] Radiology Nuclear Medicine and PET - [address] [phone] documented as of this encounter Visit Diagnoses Not on filedocumented in this encounter
--- OUTSIDE RECORDS SUMMARY | 2024-02-10 01:22 | XMS_ITS | Encounter Summary ---
Author Organization [facility] Address [address] [place] [address] Care Team Providers Care Environmental Protection Officer Name Role Phone Unavailable Primary Care Provider Unavailabl e Reason for Visit * Reason Onset Date Comments Miscarriage 06/26/2020 Nausea 06/26/2020 Abdominal Pain 06/26/2020 Encounter Details Date Type Department Care Team (Late st Contact Info) Description 06/26/2020 Telephone [facility] Adult Primary Care [address] [address] Tonja Alejandro PA-C [address] [place] [address] [place] [phone] Miscarriage; Nausea; Abdominal Pain Social History [...] in bleeding. I encouraged her to call [facility] office back for further recommendations. She really would like to try to stay out of the ER department as they have not been helpful the last time they went there. I did explain to her there can be serious risk with miscarriages with increase pain and bleeding. She understands this and will call [facility]. * Telephone Encounter - Jesi Lua RN - 06/26/2020 1537 EST Spoke with . He states neonatal social worker got to wifes phone and told her to go to ER. He states he is not bringing her back to the ER. He states she is not comfortable bringing her there and having them sitthere for 6hrs like they did the other day and them not do anything. He is not happy with [facility] office and states that is why he called us. Will forward message to Tonja DAWSON * Telephone Encounter - Tonja Alejandro PA-C - 06/26/2020 1525 EST Looks like someone from [facility] tried calling her. Patient needs to return phone call to them. * Telephone Encounter - Eryn Navarrete RN - 06/26/2020 1517 EST Reviewed response with patient's . He is still concerned about her pain management Will review with provider. * Telephone Encounter - Tonja Alejandro PA-C - 06/26/2020 1435 EST Please let patient know that I called over to her MANAGER KNOWLEDGE office/attending pest control service representative. The doctor had put in a message for someone to contact her shortly to review symptoms which are concerning. * Telephone Encounter - Jsei Lua RN - 06/26/2020 1408 EST Spoke [...] 1346 EST Has she talked with her film process operator? im concerned regarding her symptoms especially if she has a retained clot. I also worry about possible hemorrhage ( if she is severely bleeding, any increased bleedingsince yesterday? ). Has the pain changed since yesterday? Any fevers? I really think she needs to let neonatal social worker know whats going on today . I [...] provider yesterday and things were fine) Uses [facility] in [place]. * Telephone Encounter - Dayana Cosme - [facility] - [address] [phone] Carrington Calderon MD 1 [facility] 1 [place] [phone] 02/27/2024 8:30 EDT Telemedicine [facility] Sleep Program - [address] 232851 Dwight Colbert [address] [place] [address] 02/29/2024 10:30 EDT Appointment [facility] Radiology Nuclear Medicine and PET - [address] [phone] 02/29/2024 14:30 EDT [facility]ointment [facility] Radiology Nuclear Medicine and PET - [address] [address] 03/01/2024 8:00 EDT Appointment [facility] Radiology Nuclear Medicine and PET [address] [address] 03/01/2024 9:30 EDT Appointment [facility] Radiology Nuclear Medicine and PET [address] [address] documented as of this encounter Visit Diagnoses Not on filedocumented in this encounter Additional Health Concerns Infection Onset Date Last Indicated Resolved Time R/O COVID-19 08/04/2020 08/04/2020 08/04/2020 11:4 0 EST documented as of this encounter
--- OUTSIDE RECORDS SUMMARY | 2024-02-10 01:22 | XMS_ITS | Encounter Summary ---
Author Organization [facility] Address [address] [place] [address] Care Team Providers Care Fingerer Name Role Phone Unavailable Primary Care Provider Unavailabl e Reason for Visit * Reason Onset Date Comments Appointment Related 07/30/2020 Encounter Details Date Type Department Care Team (Late st Contact Info) Description 07/30/2020 Telephone [facility] OBGYN Services - [facility] [address] [place], [place] 131061 Nimisha Bay MD 2 [facility] Medical Office Building, [address] [place] [address] Appointment Related Social History Tobacco [...] [facility] - [address] 163891 Carrington Calderon MD 1 [facility] 1 [place] [address] 02/27/2024 8:30 EDT Telemedicine [facility] Sleep Program - [address] 183191 Dwight Colbert [address] [place] [address] 084541 02/29/2024 10:30 EDT Appointment [facility] Radiology Nuclear Medicine and PET - [address] 365411 02/29/2024 14:30 EDT Appointment [facility] Radiology Nuclear Medicine and PET - [address] 179201 03/01/2024 8:00 EDT Appointment [facility] Radiology Nuclear Medicine and PET [address] 545271 03/01/2024 9:30 EDT Appointment [facility] Radiology Nuclear Medicine and PET [address] [phone] documented as of this encounter Visit Diagnoses Not on filedocumented in this encounter
--- OUTSIDE RECORDS SUMMARY | 2024-02-10 01:22 | XMS_ITS | Encounter Summary ---
Author Organization [facility] Address [address] [place] [address] Care Team Providers Care Director Digital Marketing Name Role Phone Unavailable Primary Care Provider Unavailabl e Reason for Visit * Reason Onset Date Comments Advice Only 08/07/2020 Encounter Details Date Type Department Care Team (Late st Contact Info) Description 08/07/2020 Telephone [facility] Endocrinology - [facility] [address] [place] [address] Sara Zafar NP 62 [facility] [address] [place] [address] Advice Only Social History Tobacco [...] to the provider regarding patients insulin. Asked communications writer to zandra High Priority. PCP paged Sara Zafar thru [facility] with no response documented in this encounter Plan of Treatment Upcoming Encounters Date Type Department Care Team (Late st Contact Info) Description 02/21/2024 9:45 EDT Office Visit [facility] Adult Primary Care - [address] 492481 Carrington Calderon MD 1 [facility] 1 [place] [address] 02/27/2024 8:30 EDT Telemedicine [facility] Sleep Program - [address] 235171 Dwight Colbert [address] [place] [address] 02/29/2024 10:30 EDT Appointment [facility] Radiology Nuclear Medicine and PET - [address] 324191 02/29/2024 14:30 EDT Appointment [facility] Radiology Nuclear Medicine and PET [address] [id number] 03/01/2024 8:00 EDT Appointment [facility] Radiology Nuclear Medicine and PET - [address] [phone] 03/01/2024 9:30 EDT Appointment [facility] Radiology Nuclear Medicine and PET [address] [phone] documented as of this encounter Visit Diagnoses Not on filedocumented in this encounter
--- OUTSIDE RECORDS SUMMARY | 2024-02-10 01:22 | XMS_ITS | Encounter Summary ---
Author Organization [facility] Address [address] [place] [address] Care Team Providers Care Environmental Compliance Inspector Name Role Phone Unavailable Primary Care [...] [facility] Adult Primary Care - [address] 560951 Carrington Calderon MD [address] [address] 02/27/2024 8:30 EDT Telemedicine [facility] Sleep Program - [address] 289221 Dwight Colbert [address] [place] [address] [phone] 02/29/2024 10:30 EDT Appointment [facility] Radiology Nuclear Medicine and PET - [address] 005691 02/29/2024 14:30 EDT Appointment [facility] Radiology Nuclear Medicine and PET - [address] [phone] 03/01/2024 8:00 EDT Appointment [facility] Radiology Nuclear Medicine and PET - [facility] [address] [place], [place] [phone] 03/01/2024 9:30 EDT Appointment [facility] Radiology Nuclear Medicine and PET - [address] [phone] documented as of this encounter Visit Diagnoses Not on filedocumented in this encounter
--- OUTSIDE RECORDS SUMMARY | 2024-02-10 01:23 | XMS_ITS | Encounter Summary ---
Author Organization [facility] Address [address] [place] [address] Care Team Providers Care Nozzle And Sleeve Worker Name Role Phone Unavailable Primary Care Provider Unavailabl e Encounter Details Date Type Department Care Team (Late st Contact Info) Description 06/13/2020 Orders Only [facility] Adult Primary Care - [address] 360951 Tonja Alejandro PA-C [address] [place] [address] [place] [phone] Tobacco abuse (Primary Dx) Social History [...] [facility] [place] 1 [place], [place] [phone] Carrington Calderon MD 1 [facility] 1 [place] [address] 02/27/2024 8:30 EDT Telemedicine [facility] Sleep Program - [address] [place] [address] Dwight Colbert [address] [place] [address] 02/29/2024 10:30 EDT Appointment [facility] Radiology Nuclear Medicine and PET - [address] [address] 02/29/2024 14:30 EDT Appointment [facility] Radiology Nuclear Medicine and PET - [address] 165031 03/01/2024 8:00 EDT Appointment [facility] Radiology Nuclear Medicine and PET - [address] [id number] 03/01/2024 9:30 EDT Appointment [facility] Radiology Nuclear Medicine and PET [address] [address] documented as of this encounter Visit Diagnoses Diagnosis Tobacco abuse- Primary Tobacco use disorder documented in this encounter
--- OUTSIDE RECORDS SUMMARY | 2024-02-10 01:23 | XMS_ITS | Encounter Summary ---
Author Organization [facility] Address [address] [place] [address] Care Team Providers Care Plaster Model And Mold Maker Name Role Phone Unavailable Primary Care Provider Unavailabl e Encounter Details Date Type Department Care Team (Late st Contact Info) Description 06/21/2020 9:15 EST Phlebotomy Only [facility] ED Center 2 Phlebotomy [address] [place] [address] Armor Officer, Acc Phlebotomy of unknown anatomic location Social [...] [facility] - [address] 041351 Carrington Calderon MD [address] [phone] 02/27/2024 8:30 EDT Telemedicine [facility] Sleep Program - [address] 474651 Dwight Colbert [address] [place] [address] [phone] 02/29/2024 10:[address] [facility] Radiology Nuclear Medicine and PET - [address] [phone] 02/29/2024 14:30 EDT Appointment [facility] Radiology Nuclear Medicine and PET [address] [address] 03/01/2024 8:00 EDT Appointment [facility] Radiology Nuclear Medicine and PET [address] [address] 03/01/2024 9:30 EDT Appointment [facility] Radiology Nuclear Medicine and PET [address] [address] documented as of this encounter Procedures Procedure Name Priority Date/Time Associated Diagnosis Comments QUANT BETA HCG, Routine 06/21/2020 9:14 EST of unknown anatomic location documented in this encounter Results * (ABNORMAL) QUANT BETA HCG, (06/21/2020 9:14 EST) Beta HCG Quant, 152(H) <5 mIU/ml 06/21/2020 11:01 EST [facility] Comment: NOTE: : Negative: [...] Martínez MD CHEMISTRY & BLOOD GAS ORDERABLES [facility] [address] [place] [address] documented in this encounter Visit Diagnoses Diagnosis of unknown anatomic location state, incidental documented in this encounter
--- OUTSIDE RECORDS SUMMARY | 2024-02-10 01:23 | XMS_ITS | Encounter Summary ---
Author Organization [facility] Address [address] [place] [address] Care Team Providers Care Warhead Maintenance Specialist Name Role Phone Unavailable Primary Care [...] [facility] Adult Primary Care - [address] 572431 Carrington Calderon MD [address] [address] 02/27/2024 8:[address] [facility] Sleep Program - [address] 166081 Dwight Colbert [address] [place] [address] 087241 02/29/2024 10:30 EDT Appointment [facility] Radiology Nuclear Medicine and PET - [address] [id number] 02/29/2024 14:30 EDT Appointment [facility] Radiology Nuclear Medicine and PET - [address] [phone] 03/01/2024 8:00 EDT Appointment [facility] Radiology Nuclear Medicine and PET - [facility] [address] [place], [place] [phone] 03/01/2024 9:30 EDT Appointment [facility] Radiology Nuclear Medicine and PET - [address] [phone] documented as of this encounter Visit Diagnoses Not on filedocumented in this encounter
--- OUTSIDE RECORDS SUMMARY | 2024-02-10 01:23 | XMS_ITS | Encounter Summary ---
Author Organization [facility] Address [address] [place] [address] Care Team Providers Care Milking Worker Name Role Phone Unavailable Primary Care Provider Unavailabl e Reason for Visit * Reason Comments Encounter Details Date Type Department Care Team (Late st Contact Info) Description 06/20/2020 9:45 EST Office Visit [facility] - [address] [phone] Cielo Duggan MD 111 [facility], Level 4 [place] [address] of unknown anatomic location (Primary [...] Notes * Cielo Duggan MD - 06/20/2020 0958 EST Images from the original note were not included. [facility]-Level 4 [facility] FIRST TRIMESTER ULTRASOUND Reason for [...] precaustions 2.) hcg am of 06/21 with FOOD CONCESSION MANAGER service to follow documented in this encounter Plan of Treatment Upcoming Encounters Date Type Department Care Team (Late st Contact Info) Description 02/21/2024 9:45 EDT Office Visit [facility] Adult Primary Care - [address] [address] Carrington Calderon MD 1 [facility] Level 1 [place] [address] 02/27/2024 8:30 EDT Telemedicine [facility] Sleep Program - [address] [place] [address] Dwight Colbert [address] [place] [address] 02/29/2024 10:30 EDT Appointment [facility] Radiology Nuclear Medicine and PET [address] [address] 02/29/2024 14:30 EDT Appointment [facility] Radiology Nuclear Medicine and PET [address] [phone] 03/01/2024 8:00 EDT Appointment [facility] Radiology Nuclear Medicine and PET [address] [phone] 03/01/2024 9:30 EDT Appointment [facility] Radiology Nuclear Medicine and PET [address] [address] documented as of this encounter Visit Diagnoses [...]
--- OUTSIDE RECORDS SUMMARY | 2024-02-10 01:23 | XMS_ITS | Encounter Summary ---
Author Organization [facility] Address [address] [place] [address] Care Team Providers Care Branch Office Manager Name Role Phone Unavailable Primary Care Provider Unavailabl e Reason for Visit * Reason Onset Date Comments Other 06/13/2020 Encounter Details Date Type Department Care Team (Late st Contact Info) Description 06/13/2020 Telephone [facility] Foot & Ankle Program - [address] [address] Elza Navarro [address] [place] [address] Other Social History Tobacco Use [...] told to arrive @1:30 on 06.16.20 @ [facility], nothing to eat or drink after [...] [facility] Adult Primary Care - [address] [phone] Carrington Calderon MD 1 [facility] 1 [place] [address] 02/27/2024 8:30 EDT Telemedicine [facility] Sleep Program - [address] 980461 Dwight Colbert [address] [place] [address] [phone] 02/29/2024 10:30 EDT Appointment [facility] Radiology Nuclear Medicine and PET - [address] 576961 02/29/2024 14:30 EDT Appointment [facility] Radiology Nuclear Medicine and PET [address] 309111 03/01/2024 8:00 EDT Appointment [facility] Radiology Nuclear Medicine and PET [address] [phone] 03/01/2024 9:30 EDT Appointment [facility] Radiology Nuclear Medicine and PET [address] 111051 documented as of this encounter Visit Diagnoses Not on filedocumented in this encounter
--- OUTSIDE RECORDS SUMMARY | 2024-02-10 01:23 | XMS_ITS | Encounter Summary ---
Author Organization [facility] Address [address] [place] [address] Care Team Providers Care Studio Engineer Name Role Phone Unavailable Primary Care [...] Visit [facility] Adult Primary Care - [address] 733241 Carrington Calderon MD [address] [address] 02/27/2024 8:30 EDT Telemedicine [facility] Sleep Program - [address] 424351 Diwght Colbert [address] [place] [address] [phone] 02/29/2024 10:30 EDT Appointment [facility] Radiology Nuclear Medicine and PET - [address] 504241 02/29/2024 14:30 EDT Appointment [facility] Radiology Nuclear Medicine and PET - [address] [phone] 03/01/2024 8:00 EDT Appointment [facility] Radiology Nuclear Medicine and PET - [facility] [address] [place], [place] [phone] 03/01/2024 9:30 EDT Appointment [facility] Radiology Nuclear Medicine and PET - [address] [phone] documented as of this encounter Visit Diagnoses Not on filedocumented in this encounter
--- OUTSIDE RECORDS SUMMARY | 2024-02-10 01:23 | XMS_ITS | Encounter Summary ---
Author Organization [facility] Address [address] [place] [address] Care Team Providers Care Chain Link Fence Installer Name Role Phone Unavailable Primary Care Provider Unavailabl e Encounter Details Date Type Department Care Team (Latest Contact Info) Description 06/09/2020 9:35 EST Phlebotomy Only [facility] - [place] [address] [place] [address] Osteomyelitis of left foot, unspecified type ([facility]-CMS) Social History Tobacco Use Types Packs/Day Years [...] [facility] - [address] [phone] Carrington Calderon MD [address] [phone] 02/27/2024 8:30 EDT Telemedicine [facility] Sleep Program - [address] 701281 Dwight Colbert [address] [place] [address] [phone] 02/29/2024 10:30 EDT Appointment [facility] Radiology Nuclear Medicine and PET - [address] [phone] 02/29/2024 14:30 EDT Appointment [facility] Radiology Nuclear Medicine and PET [address] [address] 03/01/2024 8:00 EDT Appointment [facility] and [address] [address] 03/01/2024 9:30 EDT Appointment [facility] and [address] [address] documented as of this encounter Procedures Procedure Name Priority Date/Time Associated Diagnosis Comments ZZCOVID-19 TEST [facility] PCR Today 06/09/2020 9:28 EST Osteomyelitis of left foot, unspecified type (HCC-CMS) COVID-19 TESTING Routine 06/09/2020 9:28 EST Osteomyelitis of left foot, unspecified type (HCC-CMS) documented in this encounter Results * COVID-19 TEST [facility] PCR (06/09/2020 9:28 EST) Swab ENTIRE NASOPHARYNX / Unknown Swab / Unknown 06/09/2020 9:28 EST 06/09/2020 9:28 EST Elza Navarro DPM MICROBIOLOGY - GENER AL ORDERABLES [facility] [address] [place] [address] * COVID-19 TESTING (06/09/2020 9:28 EST) COVID-19 rt-PCR Result Negative Negative 06/09/2020 16:34 EST [facility] Comment: This test [...] history, and epidemiological information. Performed on the [employer] Fusion instrument Performing Lab [place] [facility] 06/09/2020 16:34 EST [facility] Swab ENTIRE NASOPHARYNX / Unknown Swab / Unknown 06/09/2020 9:28 EST 06/09/2020 9:28 EST Elza Navarro DPM MICROBIOLOGY - GENER AL ORDERABLES [facility] [address] [place] [address] documented in this encounter Visit Diagnoses Diagnosis Osteomyelitis of left foot, unspecified type (HCC-CMS) documented in this encounter
--- OUTSIDE RECORDS SUMMARY | 2024-02-10 01:23 | XMS_ITS | Encounter Summary ---
Author Organization [facility] Address [address] [place] [address] Care Team Providers Care Chief Compliance Officer Name Role Phone Unavailable Primary Care [...] [facility] - [address] 138421 Carrington Calderon MD [address] [phone] 02/27/2024 8:30 EDT Telemedicine [facility] Sleep Program - [address] [address] Dwight Colbert [address] [place] [phone] 02/29/2024 10:30 EDT Appointment [facility] Radiology Nuclear Medicine and PET - [address] [phone] 02/29/2024 14:30 EDT Appointment [facility] Radiology Nuclear Medicine and PET - [address] [phone] 03/01/2024 8:00 EDT Appointment [facility] Radiology Nuclear Medicine and PET - [facility] [address] [place], [place] [phone] 03/01/2024 9:30 EDT Appointment [facility] Radiology Nuclear Medicine and PET - [address] [phone] documented as of this encounter Visit Diagnoses Not on filedocumented in this encounter
--- OUTSIDE RECORDS SUMMARY | 2024-02-10 01:23 | XMS_ITS | Encounter Summary ---
Author Organization [facility] Address [address] [place] [address] Care Team Providers Care Automobile Service Writer Name Role Phone Unavailable Primary Care Provider Unavailabl e Reason for Visit * Reason Comments Pre-op Exam toe Encounter Details Date Type Department Care Team (Latest Contact Info) Description 06/13/2020 15:30 EST Office Visit [facility] Adult Primary Care - [address] [address] Teodoro Alejandro PA-C [address] [place] [address] [place] [phone] Osteomyelitis of great toe of left [...] last A1c was 9.1. According to her medical support specialist, patient is instructed to take 32 units [...] told years ago ??? Depression ??? Diabetes ([facility]-CMS) A1c 10.3 on 11/28/2019 - poorly controlled [...] 27 mL 3 ??? lancets One Touch DelCastTV or other brand compatible with lancing device [...] X Gastrointestinal x Intermittent nausea from antibiotics PSYCHOLOGIST SOCIAL x History of multiple miscarriages Musculoskeletal x [...] intrathoracic) 2. History of CAD (history of CA or a positive ETT, current ischemic chest [...] Visit [facility] Adult Primary Care - [address] [phone] Carrington Calderon MD [address] [phone] 02/27/2024 8:30 EDT Telemedicine [facility] Sleep Program - [address] [phone] Dwight Colbert [address] [place] [address] [phone] 02/29/2024 10:30 EDT Appointment [facility] Radiology Nuclear Medicine and PET - [address] [phone] 02/29/2024 14:30 EDT Appointment [facility] Radiology Nuclear Medicine and PET - [address] [phone] 03/01/2024 8:00 EDT Appointment [facility] Radiology Nuclear Medicine and PET - [address] [phone] 03/01/2024 9:30 EDT Appointment [facility] Radiology Nuclear Medicine and PET - [address] [phone] documented as of this encounter Procedures Procedure Name Priority Date/Time Associated Diagnosis Comments ECG REPORT - SCANNED 06/13/2020 15:53 EST EKG 12-LEAD Routine 06/13/2020 15:41 EST Pre-op examination Osteomyelitis of great toe of left foot (HCC-CMS) documented in this encounter Results * ECG REPORT - SCANNED (06/13/2020 15:53 EST) 06/13/2020 15:5 3 EST Scan 2 Ad Clerk PROCEDURE/MINOR BRAULIO GICAL ORDERABLES * EKG 12-LEAD (06/13/2020 15:41 EST) 06/13/2020 15:4 1 EST Narrative [facility] EKG - 06/13/2020 15:48 EST ? PC Site ? Test Date: ?2020-06-13 Pat Name: ? CRISTY LUO ?Department: ?? [facility] ? Room: ? Gender: ? Female ? Indian Nanny: ?? [id number] : ?1985 ? Requested By: HUBERT Forman Order Number: [id number] ? Reading : ?? TEODORO ALEJANDRO PA-C ? Measurements Intervals ?[place] ? Rate: ? 94 ? P: ?59 [place]: ? 156 ?QRS: ?34 QRSD: ? 89 [...] Date: 2020-06-13 Pat Name: CRISTY LUO [facility]: Gender: Female Indian Nanny: [id number] : 1985 Requested By: HUBERT Forman Order Number: [id number] Reading MD: TEODORO ALEJANDRO PA-C Measurements Intervals [place] Rate: 94 P: 59 [place]: 156 QRS: 34 QRSD: 89 T: 13 QT: 335 QTc: 420 Interpretive Statements SINUS RHYTHM Automated Interpretation. Provider Interpretation to follow. Compared to ECG 06/18/2019 08:28:09 No significant changes I reviewed the tracing and have either agreed or edited the findings inthis report. Electronically Signed On 06-13-2020 15:48:18 EST by TEODORO SPENCE Teodoro Alejandro PA-C CARDIAC ECG ORDERABLES [facility] EKG documented in this encounter Visit Diagnoses Diagnosis Osteomyelitis of great toe of left foot (HCC-CMS)- Primary Pre-op examination Preoperative examination, unspecified documented in this encounter
--- OUTSIDE RECORDS SUMMARY | 2024-02-10 01:23 | XMS_ITS | Encounter Summary ---
Author Organization [facility] Address [address] [place] [address] Care Team Providers Care Automatic Embroidery Machine Tender Name Role Phone Unavailable Primary Care Provider Unavailabl e Reason for Referral * INSIDE SALES MANAGER (Routine) - Specialty Report Received Specialty Diagnoses / Procedures Referred By Contac t Referred To Contact Diagnoses of unknown anatomic location Procedures US OB FIRST TRIMESTER (LESS THAN 14 WEEKS) TRANSVAGINAL Charu Flynn MD [address] [place] [address] [address] [place] [address] Referral ID Status Reason Start Date Expiration Date V isits Requested Visits Authorized [id number] Specialty Report Received 06/20/2020 1 1 Reason for Visit * Reason Onset Date Comments Follow-up 06/20/2020 Encounter Details Date Type Department Care Team (Late st Contact Info) Description 06/20/2020 Telephone [facility] OBGYN Services - [address] [address] Susana Tomlinson RN Follow-up Social [...] Encounter - Susana Tomlinson RN - 06/20/2020 8327 EST Spoke Stella: advised plan per MD [...] call us with any concerns or questions. TOLL BRIDGE ATTENDANT nurse line [phone], or after hours MD line [phone]. documented in this encounter Plan of Treatment Upcoming Encounters Date Type Department Care Team (Late st Contact Info) Description 02/21/2024 9:45 EDT Office Visit [facility] Adult Primary Care - [address] [phone] Carrington Calderon MD [address] [phone] 02/27/2024 8:30 EDT Telemedicine [facility] Sleep Program - [address] [phone] Dwight Colbert [address] [place] [address] [phone] 02/29/2024 10:30 EDT Appointment [facility] Radiology Nuclear Medicine and PET - [address] [phone] 02/29/2024 14:30 EDT Appointment [facility] Radiology Nuclear Medicine and PET - [address] 919251 03/01/2024 8:00 EDT Appointment [facility] Radiology Nuclear Medicine and PET [address] 802124 [phone] 03/01/2024 9:30 EDT Appointment [facility] Radiology Nuclear Medicine and PET - [address] [address] documented as of this encounter Results * [...] 8. View: Sufficient. Impression OB Transvaginal - 95235. 1. of unknown location with findings that [...] 8. View: Sufficient. Impression OB Transvaginal - 36705. 1. of unknown location with findings that [...] DATE OF SERVICE: 06/25/2020 Charu Flynn MD [facility] OB ORDERA BLES documented in this encounter Visit Diagnoses Diagnosis of unknown anatomic location- Primary state, incidental of unknown anatomic location state, incidental documented in this encounter
--- OUTSIDE RECORDS SUMMARY | 2024-02-10 01:23 | XMS_ITS | Encounter Summary ---
Author Organization [facility] Address [address] [place] [address] Care Team Providers Care Ebd Special Education Teacher Name Role Phone Unavailable Primary Care Provider Unavailabl e Reason for Visit * Auth/Cert Specialty Diagnoses / Procedures Referred By Kit t Referred To Contact Diagnoses Encounter for sterilization Procedures CO LAP,RMV ADNEXAL STRUCTURE Laparoscopic Bilateral Salpingectomy Referral ID Status Reason Start Date Expiration Date Visits Re quested Visits Authorized [id number] 1 1 Encounter Details Date Type Department Care Team (Late st Contact Info) Description 06/16/2020 15:25 EST - 06/16/2020 16:40 EST Surgery [facility] [place] [address] [place] [address] Elza Navarro DPM [address] [place] [phone] Left great toe amputation [85723 (CPT??)] Surgery Details Date/Time Status Location OR Service Patient Class Case Cl ass Case Type Trauma Case? 06/16/20 1525 Posted [facility] OR [facility] Outpatient Surgery H - [...] can be contacted during weekday officehours at [phone]. If there is an emergency, Dr. Navarro may also be contacted via pager by calling the [facility] at [phone] or [phone] (pager # [phone]). documented in this encounter Medications at Time [...] last A1c was 9.1. 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 PREOPERATIVE DIAGNOSIS: Left great toe osteomyelitis. [...] retained. Elza Navarro DPM / DC Confirmation: [id number] Dictation ID: [id number] cc: documented in this encounter Miscellaneous Notes * Brief Op Note - Elza Navarro DPM - 06/16/2020 1644 EST Date: 06/16/2020 Location: [facility] OR Name: Cristy Luo, : 1985, Diagnosis Pre-op Diagnosis * Osteomyelitis of toe of left foot ([facility]) [M86.9] * Type 2 diabetes mellitus with diabetic polyneuropathy, with long-term current use of insulin ([facility]) [E11.42, Z79.4] Post-op Diagnosis * Osteomyelitis of toe of left foot ([facility]) [M86.9] * Type 2 diabetes mellitus with diabetic polyneuropathy, with long-term current use of insulin ([facility]) [E11.42, Z79.4] Procedures Left great toe amputation 59953 - CO AMPUTATION TOE,MT-P JT Surgeons * Elza Navarro DPM - Primary Procedure Summary Anesthesia: Monitor Anesthesia Care ASA: ASA status not filed in the log. Estimated Blood Loss: < 5 cc Total IV Fluids: per anesthesia Staff: Medical Scribe: Cherie Mayes RN Scrub Person: Arturo Pelletier Patient Configuration Specialist: Carlita Charles Indications: Stella Luo is an [...] protocol. Patient will call GUSTAVO Collado (Diabetes CAMERA OPERATOR) for any further questions regarding diabetes management pre op NAOMI NAVA RN * PAT Note - Naomi Nava RN - 06/13/2020 0983 EST COVID 19 Screening Perioperative at time [...] instruct them to call us back at [phone] to report symptoms (If patient is in [...] [facility] - [address] [phone] Carrington Calderon MD 1 [facility] [address] [place] [phone] 02/27/2024 8:30 EDT Telemedicine [facility] Sleep Program - [address] [phone] Dwight Colbert [address] [place] [address] [phone] 02/29/2024 10:30 EDT Appointment [facility] Radiology Nuclear Medicine and PET [address] [address] 02/29/2024 14:30 EDT Appointment [facility] Radiology Nuclear Medicine and [address] [address] 03/01/2024 8:00 EDT Appointment [facility] Radiology Nuclear Medicine and PET [address] [address] 03/01/2024 9:30 EDT Appointment [facility] Radiology Nuclear [facility] and [address] [address] Pending Results Name Type Priority Associated Diagnoses [...] EST Osteomyelitis of toe of left foot ([facility]) Type 2 diabetes mellitus with diabetic polyneuropathy, with long-term current use of insulin ([facility]) Special Needs Foot Set, Patient already has surgical shoe POCT GLUCOSE, INTERFACED Routine 06/16/2020 14:40 EST POCT CSN BARCODE URINE PREG TEST STAT 06/16/2020 14:22 EST documented in this encounter Results * PATHOLOGY - SCANNED (06/20/2020 11:10 EST) 06/20/2020 11:1 0 EST Scan 2 Lumber Straightener LAB INFO SERVICE AN D SUPPORT & PHONE RESULT * SURGICAL PATHOLOGY (06/16/2020 16:21 [facility]) Final Diagnosis A. TOE, LEFT GREAT, AMPUTATION: - Acute osteomyelitis. - Disarticulated joint with no gross evidence of acute osteomyelitis. - Skin with ulceration and acute cellulitis. 06/19/2020 15:19 [facility] Attestation There was significant resident/fellow involvement in the diagnostic evaluation of this case. By the signature below, the attending physician certifies that they have personally conducted a gross and/or microscopic examination of the described specimens and rendered or confirmed the above diagnosis. 06/19/2020 15:19 [facility] at 1519 Clinical History Left great toe osteomyelitis 06/19/2020 15:19 [facility] Gross Description A. Received in [...] unguis is pale yellow firm and unremarkable. Clothes Wringer sections are submitted as follows: BLOCK SHIELDS A1-A2- underlying bone, acid decalcification A3- defect to skin and soft tissue margins EUNICE GUAJARDO(ASCP) 06/17/2020 11:11 06/19/2020 15:19 [facility] Resident/Cash w: Emory Nazario DO 06/19/2020 15:19 [facility] Performing Lab [facility] LAB 15:19 [facility] Scanned Images 06/19/2020 15:19 [facility] Tissue AMPUTATION / Unknown 06/16/2020 16:21 EST 06/16/2020 21:33 EST Comment:Left great toe osteo myelitis Elza Navarro DPM PATHOLOGY ORDERABLES [facility] [address] [place] [address] * (ABNORMAL) ANAEROBE CULTURE/SMEAR(INC. AEROBES), OTHER (06/16/2020 16:21 EST) Organism ID Moderate Streptococcus agalactiae(A) 1 8:41 [facility] Comment:Penicillin and ampic illin are drugs of choice for treatment of beta hemolytic streptococcal infections. Organism ID Few Staphylococcus aureus(A) VITEK SUSCEPTIBILITY 1 8:41 [facility] Comment:Susceptible to nafci llin, cephalosporins and other beta lactam antibiotics (mecA gene product absent). Organism ID Few Gram-Positive Rods Aerobic (Group) 1 8:41 [facility] Organism ID Rare Prevotella bivia(A) 1 8:41 [facility] Organism ID Few Anaerococcus tetradius(A) 1 8:41 [facility] Smear Many Neutrophils Present 1 8:41 [facility] Smear Moderate Gram Positive Cocci 1 8:41 [facility] Bone ENTIRE TOE / Unknown [...] - GENER AL ORDERABLES Performing Organization Address [facility] Co de Phone Number [facility] [address] [place] [address] * (ABNORMAL) POCT GLUCOSE, INTERFACED (06/16/2020 14:40 EST) Glucose, POC 166(H) 70 - 100 mg/dL 06/16/2020 14:43 EST [facility] nc machinist ID [id number] 06/16/2020 14:43 EST [facility] HN LAB POC COMMENT (GLUCOSE) Test Performed by Nursing Services 06/16/2020 14:43 EST [facility] Blood CAPILLARY BLOOD / Unknown 06/16/2020 14:40 EST 06/16/2020 14:43 EST Elza Navarro DPM POINT OF CARE TEST O RDERABLES Performing Organization Address [facility] Co de Phone Number [facility] [address] [place] [address] * POCT CSN BARCODE URINE PREG TEST (06/16/2020 14:22 EST) Hold Hold 06/16/2020 16:30 EST [facility] Urine URINE SPECIMEN COLLECTION, CLEAN CATCH / Unknown 06/16/2020 14:22 EST 06/16/2020 14:22 EST Tiff Salcedo MD LAB INFO SERVICE AND SUPPORT & PHONE RESULT Performing Organization Address [facility] Co de Phone Number [facility] [address] [place] [address] documented in this encounter Visit Diagnoses Diagnosis Osteomyelitis of left foot, unspecified type (HCC-CMS) Osteomyelitis of toe of left foot ([facility]) Unspecified osteomyelitis, ankle and foot Type 2 diabetes mellitus with diabetic polyneuropathy, with long-term current use of insulin ([facility]) Osteomyelitis of toe of left foot ([facility]) Unspecified osteomyelitis, ankle and foot Type 2 diabetes mellitus with diabetic polyneuropathy, with long-term current use of insulin ([facility]) documented in this encounter Admitting Diagnoses Diagnosis Osteomyelitis of toe of left foot ([facility]) Unspecified osteomyelitis, ankle and foot Type 2 diabetes mellitus with diabetic polyneuropathy, with long-term current use of insulin ([facility]) documented in this encounter Administered Medications Inactive [...]
--- OUTSIDE RECORDS SUMMARY | 2024-02-10 01:23 | XMS_ITS | Encounter Summary ---
Author Organization [facility] Address [address] [place] [address] Care Team Providers Care Strip Cutting Machine Operator Name Role Phone Unavailable Primary Care Provider Unavailabl e Reason for Visit * Auth/Cert Specialty Diagnoses / Procedures Referred By Contac t Referred To Contact Diagnoses Encounter for sterilization Procedures [place] LAP,RMV ADNEXAL STRUCTURE Laparoscopic Bilateral Salpingectomy Referral ID Status Reason Start Date Expiration Date Visits Re quested Visits Authorized [id number] 1 1 Encounter Details Date Type Department Care Team (Latest Contact Info) Description 06/16/2020 13:35 EST - 06/16/2020 17:05 [facility] Hospital Encounter [facility] [place] OR [address] [place] [address] Elza Navarro DPDickson [address] [place] [phone] Osteomyelitis of left foot, unspecified type ([facility]) Discharge Disposition: Home or Self Care [...] can be contacted during weekday officehours at [phone]. If there is an emergency, Dr. Navarro may also be contacted via pager by calling the [facility] at [phone] or [phone] (pager # [phone]). documented in this encounter Medications at Time [...] last A1c was 9.1. According to her dub room engineer, patient is instructed to take 32 [...] ago ??? Depression ??? 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 History of CAD (history of CO or a positive ETT, current ischemic chest [...] SERVICE DATE: 06/16/2020 SURGEON: Elza Navarro DPM FILTER TENDER: None. PREOPERATIVE DIAGNOSIS: Left great toe osteomyelitis. [...] retained. Elza Navarro DPM / DC Confirmation: [id number] Dictation ID: [id number] cc: documented in this encounter Miscellaneous Notes * Brief Op Note - Elza Navarro DPM - 06/16/2020 1644 EST Date: 06/16/2020 Location: [facility] OR Name: Cristy Luo, : 1985, Diagnosis Pre-op Diagnosis * Osteomyelitis of toe of left foot ([facility]) [M86.9] * Type 2 diabetes mellitus with diabetic polyneuropathy, with long-term current use of insulin ([facility]) [E11.42, Z79.4] Post-op Diagnosis * Osteomyelitis of toe of left foot ([facility]) [M86.9] * Type 2 diabetes mellitus with diabetic polyneuropathy, with long-term current use of insulin ([facility]) [E11.42, Z79.4] Procedures Left great toe amputation 80374 - [place] AMPUTATION TOE,MT-P JT Surgeons * Elza Navarro DPM - Primary Procedure Summary Anesthesia: Monitor Anesthesia Care ASA: ASA status not filed in the log. Estimated Blood Loss: < 5 cc Total IV Fluids: per anesthesia Staff: Car Repossessor: Cherie Mayes RN Scrub Person: Arturo Pelletier Patient Saddle Maker: Carlita Charles Indications: Stella Luo is [...] protocol. Patient will call GUSTAVO Collado (Diabetes SKIP PIT WORKER) for any further questions regarding diabetes management pre op NAOMI NAVA RN * PAT Note - Naomi Nava RN - 06/13/2020 6173 EST COVID 19 Screening Perioperative at time [...] instruct them to call us back at [phone] to report symptoms (If patient is in [...] [facility] [address] [address] Carrington Calderon MD 1 [facility] [address] [place] [phone] 02/27/2024 8:30 EDT Telemedicine [facility] Sleep Program - [address] [phone] Dwight Colbert [address] [place] [phone] 02/29/2024 10:30 EDT Appointment [facility] Radiology Nuclear Medicine and PET - [address] [phone] 02/29/2024 14:30 EDT Appointment [facility] Radiology Nuclear Medicine and PET - [address] 081630 [phone] 03/01/2024 8:00 EDT Appointment [facility] Radiology Nuclear Medicine and PET [address] [address] 03/01/2024 9:30 EDT Appointment [facility] Radiology Nuclear Medicine and PET [address] [address] Pending Results Name Type Priority Associated Diagnoses [...] toe of left foot ([facility]) Type 2 diabetes mellitus with diabetic polyneuropathy, with long-term current use of insulin ([facility]) Special Needs Foot Set, Patient already has surgical shoe POCT GLUCOSE, INTERFACED Routine 06/16/2020 14:40 EST POCT CSN BARCODE URINE PREG TEST STAT 06/16/2020 14:22 EST documented in this encounter Results * PATHOLOGY - SCANNED (06/20/2020 11:10 EST) 06/20/2020 11:1 0 EST Scan 2 [facility] LAB INFO SERVICE AN D SUPPORT & PHONE RESULT * SURGICAL PATHOLOGY (06/16/2020 16:21 EST) Final Diagnosis A. TOE, LEFT GREAT, AMPUTATION: - Acute osteomyelitis. - Disarticulated joint with no gross evidence of acute osteomyelitis. - Skin with ulceration and acute cellulitis. 06/19/2020 15:19 EST [facility] Attestation There was significant resident/fellow involvement in the diagnostic evaluation of this case. By the signature below, the attending physician certifies that they have personally conducted a gross and/or microscopic examination of the described specimens and rendered or confirmed the above diagnosis. 06/19/2020 15:19 [facility] at 1519 Clinical History Left great toe osteomyelitis 06/19/2020 15:19 [facility] Gross Description A. [...] unguis is pale yellow firm and unremarkable. Product Director sections are submitted as follows: BLOCK SHIELDS A1-A2- underlying bone, acid decalcification A3- defect to skin and soft tissue margins EUNICE GUAJARDO(ASCP) 06/17/2020 11:11 06/19/2020 15:19 [facility] Resident/Cash w: Emory Nazario DO 06/19/2020 15:19 [facility] Performing Lab [facility] 15:19 [facility] Scanned Images 06/19/2020 15:19 [facility] Tissue AMPUTATION / Unknown 06/16/2020 16:21 EST 06/16/2020 21:33 EST Comment:Left great toe osteo myelitis Elza Navarro DPDickson PATHOLOGY ORDERABLES [facility] [address] [place] [address] * (ABNORMAL) ANAEROBE CULTURE/SMEAR(INC. AEROBES), OTHER (06/16/2020 16:21 EST) Organism ID Moderate Streptococcus agalactiae(A) 1 8:41 [facility] Comment:Penicillin and ampic illin are drugs of choice for treatment of beta hemolytic streptococcal infections. Organism ID Few Staphylococcus aureus(A) VITEK SUSCEPTIBILITY 1 8:41 [facility] Comment:Susceptible to nafci llin, cephalosporins and other beta lactam antibiotics (mecA gene product absent). Organism ID Few Gram-Positive Rods Aerobic (Group) 1 8:41 [facility] Organism ID Rare Prevotella bivia(A) 1 8:41 [facility] Organism ID Few Anaerococcus tetradius(A) 1 8:41 [facility] Smear Many Neutrophils Present 1 8:41 [facility] Smear Moderate Gram Positive Cocci 1 8:41 [facility] Bone ENTIRE TOE [...] Navarro DPM MICROBIOLOGY - GENER AL ORDERABLES [facility] [address] [place] [address] * (ABNORMAL) POCT GLUCOSE, INTERFACED (06/16/2020 14:40 EST) Glucose, POC 166(H) 70 - 100 mg/dL 06/16/2020 14:43 EST [facility] assistant broker ID [id number] 06/16/2020 14:43 EST [facility] HN LAB POC COMMENT (GLUCOSE) Test Performed by Nursing Services 06/16/2020 14:43 EST [facility] Blood CAPILLARY BLOOD / Unknown 06/16/2020 14:40 EST 06/16/2020 14:43 EST Elza Navarro DPM POINT OF CARE TEST O RDERABLES Performing Organization Address City/[facility]/ZIP Co de Phone Number [facility] [address] [place] [address] * POCT CSN BARCODE URINE PREG TEST (06/16/2020 14:22 EST) Hold Hold 06/16/2020 16:30 EST [facility] Urine URINE SPECIMEN COLLECTION, CLEAN CATCH / Unknown 06/16/2020 14:22 EST 06/16/2020 14:22 EST Tiff Salcedo MD LAB INFO SERVICE AND SUPPORT & PHONE RESULT Performing Organization Address City/[facility] Co de Phone Number [facility] [address] [place] [address] documented in this encounter Visit Diagnoses Diagnosis Osteomyelitis of left foot, unspecified type ([facility]) Osteomyelitis of toe of left foot ([facility]) Unspecified osteomyelitis, ankle and foot Type 2 diabetes mellitus with diabetic polyneuropathy, with long-term current use of insulin ([facility]) documented in this encounter Admitting Diagnoses Diagnosis Osteomyelitis of toe of left foot ([facility]) Unspecified osteomyelitis, ankle and foot Type 2 diabetes mellitus with diabetic polyneuropathy, with long-term current use of insulin ([facility]) documented in this encounter Administered Medications [...]
--- OUTSIDE RECORDS SUMMARY | 2024-02-10 01:23 | XMS_ITS | Encounter Summary ---
Author Organization [facility] Address [address] [place] [address] Care Team Providers Care Mill Representative Name Role Phone Unavailable Primary Care [...] [facility] Adult Primary Care - [address] [phone] Carrington Calderon MD [address] [phone] 02/27/2024 8:30 EDT Telemedicine [facility] Sleep Program - [address] [phone] Dwight Colbert [address] [place] [address] [phone] 02/29/2024 10:30 EDT Appointment [facility] Radiology Nuclear Medicine and PET - [address] [phone] 02/29/2024 14:30 EDT Appointment [facility] Radiology Nuclear Medicine and PET - [address] 970661 03/01/2024 8:00 EDT Appointment [facility] Radiology Nuclear Medicine and PET - [address] [address] 03/01/2024 9:30 EDT Appointment [facility] Radiology Nuclear Medicine and PET - [address] [phone] documented as of this encounter Visit Diagnoses Not on filedocumented in this encounter
--- OUTSIDE RECORDS SUMMARY | 2024-02-10 01:23 | XMS_ITS | Encounter Summary ---
Author Organization [facility] Address [address] [place] [address] Care Team Providers Care Offset Press Operator Name Role Phone Unavailable Primary Care Provider Unavailabl e Reason for Visit * Auth/Cert Specialty Diagnoses / Procedures Referred By Kit t Referred To Contact Diagnoses Encounter for sterilization Procedures [place] LAP,RMV ADNEXAL STRUCTURE Laparoscopic Bilateral Salpingectomy Referral ID Status Reason Start Date Expiration Date Visits Re quested Visits Authorized [id number] 1 1 Encounter Details Date Type Department Care Team (Late st Contact Info) Description 06/16/2020 16:00 EST Anesthesia Event [facility] OR [address] [place], [place] [phone] Mushtaq Vuong MD 111 [facility], Level 2 [place] [phone] Elliott Skinner MD Anesthesia Record Procedure Summary [...] Barahona RN 08/06/20 0414 by Nanda Gibson, vascular technologist sonographer 03/10/20; Abrasion; Right, Plantar; N; Partial thickness; [...] [facility]. Vitals Value Taken Time BP 06/16/20 [...] told years ago ??? Depression ??? Diabetes ([facility]) A1c 10.3 on 11/28/2019 - [...] protocol. Patient will call GUSTAVO Collado (Diabetes COLLEGE DIRECTOR) for any further questions regarding diabetes management [...] instruct them to call us back at [phone] to report symptoms (If patient is in [...] Visit [facility] Adult Primary Care - [address] [phone] Carrington Calderon MD [address] [phone] 02/27/2024 8:30 EDT Telemedicine [facility] Sleep Program - [address] [phone] Dwight Colbert [address] [place] [phone] 02/29/2024 10:30 EDT Appointment [facility] Radiology Nuclear Medicine and PET [address] [phone] 02/29/2024 14:30 EDT Appointment [facility] Radiology Nuclear Medicine and PET [address] [phone] 03/01/2024 8:00 EDT Appointment [facility] Radiology Nuclear Medicine and PET [address] [phone] 03/01/2024 9:30 EDT Appointment [facility] Radiology Nuclear Medicine and [address] [phone] documented as of this encounter Visit Diagnoses [...]
--- OUTSIDE RECORDS SUMMARY | 2024-02-10 01:23 | XMS_ITS | Encounter Summary ---
Author Organization [facility] Address [address] [place] [address] Care Team Providers Care Entrepreneur Name Role Phone Unavailable Primary Care Provider Unavailabl e Reason for Visit * Reason Comments Foot Problem Encounter Details Date Type Department Care Team (Latest Contact Info) Description 06/25/2020 15:00 EST Post-op Visit [facility] Foot & Ankle Program - [address] [address] Elza Navarro [address] [phone] Osteomyelitis of left foot, unspecified type ([facility]) (Primary Dx); Type 2 diabetes mellitus with diabetic polyneuropathy, with long-term current use of insulin ([facility]) Social History Tobacco [...] 1. Osteomyelitis of left foot, unspecified type ([facility]) 2. Type 2 diabetes mellitus with diabetic polyneuropathy, with long-term current use of insulin ([facility]) No orders of the defined [...] with speech recognition software or keyboard data designer techniques. Minor irregularities or keyboarding misprints may be present documented in this encounter Plan of Treatment Upcoming Encounters Date Type Department Care Team (Late st Contact Info) Description 02/21/2024 9:45 EDT Office Visit [facility] Adult Primary Care - [address] [phone] Carrington Calderon MD [address] [place] [phone] 02/27/2024 8:30 EDT Telemedicine [facility] Sleep Program - [address] [phone] Dwight Colbert [address] [place] [phone] 02/29/2024 10:30 EDT [facility] Rad[facility] Nuclear Medicine and PET - [address] [address] 02/29/2024 14:30 EDT [facility] Radiology Nuclear Medicine and PET - [address] [phone] 03/01/2024 8:00 EDT [facility] Radiology Nuclear Medicine and PET - [address] [phone] 03/01/2024 9:30 EDT Appointment [facility] Radiology Nuclear Medicine and PET [address] [phone] documented as of this encounter Visit Diagnoses Diagnosis Osteomyelitis of left foot, unspecified type ([facility] Primary Type 2 diabetes mellitus with diabetic polyneuropathy, with long-term current use of insulin ([facility]) documented in this encounter
--- OUTSIDE RECORDS SUMMARY | 2024-02-10 01:23 | XMS_ITS | Encounter Summary ---
Author Organization [facility] Address [address] [place] [address] Care Team Providers Care Surgical Coder Name Role Phone Unavailable Primary Care Provider Unavailabl e Reason for Referral * SOLE STAPLER WELT (Routine) - Specialty Report Received Specialty Diagnoses / Procedures Referred By Contac t Referred To Contact Diagnoses of unknown anatomic location Procedures US OB FIRST TRIMESTER (LESS THAN 14 WEEKS) TRANSVAGINAL David Martínez MD [address] [place] [phone] Referral ID Status Reason Start Date Expiration Date V isits Requested Visits Authorized [id number] Specialty Report Received 06/19/2020 1 1 Reason for Visit * Reason Onset Date Comments 06/18/2020 Encounter Details Date Type Department Care Team (Late st Contact Info) Description 06/18/2020 Telephone [facility] OBGYN Services - [address] [address] Nohemy Sales MD [address] [place] [phone] Social History Tobacco Use Types Packs/Day [...] Tuesday - heavier on Tuesday and Tuesday, 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 Almonte - ideally should be WOOD PROCESSING WORKER provider managing at this time. Dr. Martínez [...] she is able to come down to [facility] lab for this lab draw and understands plan. She had no further questions and verbalized understanding of plan. Will follow up when [facility] comes back. * Telephone Encounter - Elza Nieves - 06/18/2020 0821 EST Have you been seen here before for OB care? Yes If yes, who did you see (Refer to [facility] if can???t remember)? [facility]. Reason for Call as described [...] for us to reach you back at? [phone] What time of day is the best [...] [facility] Adult Primary Care - [address] [phone] Carrington Calderon MD [address] [facility] [place] [facility] 1 [place] [phone] 02/27/2024 8:30 EDT Telemedicine [facility] Sleep Program - [address] [phone] Dwight Colbert [address] [place], [place] [phone] 02/29/2024 10:30 EDT Appointment [facility] Radiology Nuclear Medicine and PET [address] [phone] 02/29/2024 14:30 EDT Appointment [facility] Radiology Nuclear Medicine and PET [address] [phone] 03/01/2024 8:00 EDT Appointment [facility] Radiology Nuclear Medicine and PET [address] [phone] 03/01/2024 9:30 EDT Appointment [facility] Radiology Nuclear Medicine and PET [address] [phone] documented as of this encounter Results * (ABNORMAL) QUANT BETA HCG, (06/21/2020 9:14 EST) [facility] Beta HCG Quant, 152(H) <5 mIU/ml 06/21/2020 11:01 EST [facility] Comment: NOTE: : [...] MD CHEMISTRY & BLOOD GAS ORDERABLES [facility] [address] [place] [address] * US OB FIRST TRIMESTER (LESS THAN [...] Sufficient. Impression 1st Trimester OB scan ,transvaginal +[id number] There is no visualized gestational sac either [...] The adnexa appear normal. Follow-up Per the WOOD PROCESSING WORKER service. Comment ========= Results discussed w/patient. DATE [...] Sufficient. Impression 1st Trimester OB scan ,transvaginal +[id number] There is no visualized gestational sac either [...] The adnexa appear normal. Follow-up Per the WOOD PROCESSING WORKER service. Comment ========= Results discussed w/patient. DATE [...] Sufficient. Impression 1st Trimester OB scan ,transvaginal +[id number] There is no visualized gestational sac either [...] The adnexa appear normal. Follow-up Per the WOOD PROCESSING WORKER service. Comment ========= Results discussed w/patient. DATE OF SERVICE: 06/20/2020 David Martínez MD IMG US OB ORDERAB LES * (ABNORMAL) QUANT BETA HCG, (06/19/2020 13:07 EST) Beta HCG Quant, 108(H) <5 mIU/ml 06/19/2020 14:38 EST [facility] Comment: NOTE: : [...] MD CHEMISTRY & BLOOD GAS ORDERABLES [facility] [address] [place] [address] documented in this encounter Visit Diagnoses Diagnosis of unknown anatomic location- Primary state, incidental of unknown anatomic location state, incidental documented in this encounter
--- OUTSIDE RECORDS SUMMARY | 2024-02-10 01:23 | XMS_ITS | Encounter Summary ---
Author Organization [facility] Address [address] [place] [address] Care Team Providers Care Neuropsychology Service Director Name Role Phone Unavailable Primary Care Provider Unavailabl e Reason for Visit * Reason Onset Date Comments Pre-procedure 06/05/2020 Encounter Details Date Type Department Care Team (Latest Contact Info) Description 06/05/2020 Prep for Procedure [facility] Foot & Ankle Program - [address] [phone] Elza Navarro DPM [address] [place] [phone] [...] [facility] Adult Primary Care - [address] [phone] Carrington Calderon MD 1 [facility] 1 [place] [phone] 02/27/2024 8:30 EDT Telemedicine [facility] Sleep Program - [address] [phone] Dwight Colbert [address] [place] [phone] 02/29/2024 10:30 EDT [facility] Rad[facility] Nuclear Medicine and PET - [address] [phone] 02/29/2024 14:30 EDT [facility] and PET - [address] [phone] 03/01/2024 8:00 EDT Appointment [facility] Radiology Nuclear Medicine and PET - [address] [phone] 03/01/2024 9:30 EDT Appointment [facility] Radiology Nuclear Medicine and PET [address] [phone] documented as of this encounter Visit Diagnoses Diagnosis Osteomyelitis of left foot, unspecified type ([facility] Primary documented in this encounter
--- OUTSIDE RECORDS SUMMARY | 2024-02-10 01:23 | XMS_ITS | Encounter Summary ---
Author Organization [facility] Address [address] [place] [address] Care Team Providers Care Letter Carrier Name Role Phone Unavailable Primary Care Provider Unavailabl e Reason for Visit * Reason Comments Vaginal Bleeding Vaginal bleeding, ba ck pain, and cramping since tuesday, not soaking pads, only when wiping. seen here previously for toe amputation. Encounter Details Date Type Department Care Team (Late st Contact Info) Description 06/23/2020 8:23 EST - 06/23/2020 14:10 EST Emergency [facility] Emergency Department - [address] [address] Siobhan Hare PA-C [address] [place] [address], Level 1 [place] [address] of unknown anatomic location (Primary [...] [facility]; given MTX 10/26/18 7 SAB 01/2018 6w0d SAB Comments: D&C at [facility] after nonviable on US; had to have repeat D&Bhavna April for retained POCs 6 06/2017 6w0d SAB Comments: D&C at [facility]; nonviable seen on US; fourth with current 5 SAB 02/2017 6w0d SAB Comments: D&C at [facility]; third with current 4 SAB 08/2015 10w0d SAB Comments: D&C at [facility]; 2nd with current 3 SAB 01/2015 9w0d SAB Comments: D&C at [facility]; first current 2 SAB 2005 6w0d SAB Comments: first ; ex ; twin confirmed by US at [facility]; no medical or surgical tx 1 Past GynHx: MTX given 10/26/2018 for interstitial . See above. PMedHx: Past Medical History: Diagnosis Date ??? Anxiety ??? Arthritis 12/05/19- Spine- told years ago ??? Depression ??? Diabetes ([facility]) A1c 10.3 on 11/28/2019 - poorly controlled ??? Difficulty opening mouth 06/13/2020 pain with opening mouth wide ??? Does not exercise 06/13/2020 due to infected toe ??? History of general anesthesia ??? Hx of ectopic 06/20/2020 ??? Irritable bowel syndrome 06/13/2020 ? ? Nausea & vomiting occasionally ??? Obesity, unspecified ??? Osteomyelitis ([facility]) of left great toe ??? Peripheral [...] file Gets together: Not on file Attends holiness service: Not on file Active member of [...] Kenyon MD 06/23/2020 13:39 PGY4, OBGYN Pager #[phone] documented in this encounter ED Notes * [...] the Emergency Department: Good PCP: Tonja Alejandro [facility] 06/28/2020 17:56 No flowsheet data found. * Madelin Ma RN - 06/23/2020 1230 EST VICE PRESIDENT INTEGRATED at bedside * Marychuy Kaufman - 06/23/2020 0905 EST Blood drawn via saline lock per protocol, tiger and purple tube(s) sent to lab per order. documented in this encounter Plan of Treatment Upcoming Encounters Date Type Department Care Team (Late st Contact Info) Description 02/21/2024 9:45 EDT Office Visit [facility] Adult Primary Care - [address] [phone] Carrington Calderon MD 1 [facility] 1 [place] [phone] 02/27/2024 8:30 EDT Telemedicine [facility] Sleep Program - [address] [place] [address] Dwight Colbert [address] [place] [address] 02/29/2024 10:30 EDT [facility]ointment [facility] Radiology Nuclear Medicine and PET - [address] [address] 02/29/2024 14:30 EDT Appointment [facility] Radiology Nuclear Medicine and PET [address] [id number] 03/01/2024 8:00 EDT Appointment [facility] Radiology Nuclear Medicine and PET - [address] [phone] 03/01/2024 9:30 EDT Appointment [facility] Radiology Nuclear Medicine and PET - [address] [phone] documented as of this encounter Procedures Procedure [...] for nonviable early in the first trimester. [place] Journal of Medicine 369.15 (2013): 1764-6061. I have personally reviewed the images and [...] AND SYMPTOMS/COMMENTS: of unknown location, LMP 05/06, [id number] two days ago, not doubling appropriately COMPARISON: [...] for nonviablepregnancy early in the first trimester. [place] Journal of Hakvccsu238.15 (2013): 9640-9928. I have personally reviewed the images and the above interpretation andagree with the findings. Siobhan Hare PA-C IMG US OB OR DERABLES * HN LAB CBC SMEAR REVIEW (06/23/2020 8:53 EST) Differential Comment Slide was examined by a technologist to verify the WBC and/or platelet count. 06/23/2020 9:44 [facility] Blood VENOUS BLOOD / Unknown Venipuncture / Unknown 06/23/2020 8:53 EST 06/23/2020 9:06 EST Siobhan Hare PA-C HEMATOLOGY & PF4 ORDERABLES [facility] [address] [place] [address] * (ABNORMAL) COMPLETE BLOOD COUNT AND DIFFERENTIAL (06/23/2020 8:53 EST) WBC 6.42 4.00 - 12.40 K/cmm 06/23/2020 9:45 [facility] RBC 4.96 3.86 - 5.04 M/cmm 06/23/2020 9:45 [facility] Hemoglobin 15.4(H) 11.6 - 15.2 gm/dL 06/23/2020 9:45 [facility] HCT 43.6 34.9 - 44.4 % 06/23/2020 9:45 [facility] MCV 88 81 - 98 fl 06/23/2020 9:45 [facility] MCH 31.0 26.7 - 33.3 pg 06/23/2020 9:45 [facility] MCHC 35.3 32.1 - 35.9 gm/dL 06/23/2020 9:45 [facility] RDW-CV 12.0 <14.7 % 06/23/2020 9:45 [facility] RDW-SD 38.6 <50.4 fl 06/23/2020 9:45 [facility] PLT 06/23/2020 9:45 [facility] Comment:Unreportable due to presence of platelet clumps. MPV 06/23/2020 9:45 [facility] Comment:Not Available % Neutrophils 52.1 % 06/23/2020 9:45 [facility] % Lymphocytes 41.0 % 06/23/2020 9:45 [facility] % Monocytes 4.7 % 06/23/2020 9:45 [facility] % Eosinophils 1.7 % 06/23/2020 9:45 [facility] % Basophils 0.3 % 06/23/2020 9:45 [facility] % Immature Grans 0.2 % 06/23/19 9:45 [facility] Absolute Neutrophils 3.35 2.20 - 8.85 K/cmm 06/23/2020 9:45 [facility] Absolute Lymphocytes 2.63 1.09 - 3.30 K/cmm 06/23/2020 9:45 [facility] Absolute Monocytes 0.30 0.10 - 0.80 K/cmm 06/23/2020 9:45 [facility] Absolute Eosinophils 0.11 0.03 - 0.61 K/cmm 06/23/2020 9:45 [facility] ABS Basophils 0.02 0.01 - 0.11 K/cmm 06/23/2020 9:45 [facility] Absolute Immature Grans 0.01 0.00 - 0.06 K/cmm 06/23/2020 9:45 [facility] Type of Differential: Auto 06/23/2020 9:45 [facility] Blood VENOUS BLOOD / Unknown Venipuncture / Unknown 06/23/2020 8:53 EST 06/23/2020 9:06 EST Siobhan Hare PA-C PACKAGES & D NA PROBE ORDERABLES [facility] [address] [place] [address] * (ABNORMAL) COMPREHENSIVE METABOLIC PANEL (CMP) (06/23/2020 8:53 EST) Sodium 143 136 - 145 mEq/L 06/23/2020 9:24 [facility] Potassium 5.0 3.5 - 5.0 mEq/L 06/23/2020 9:24 [facility] Comment:Slight hemolysis chica ntified, interpret with caution as hemolysis will elevate potassium result. Chloride 101 96 - 110 mEq/L 06/23/2020 9:24 [facility] CO2 Total 28 22 - 32 mEq/L 06/23/2020 9:24 [facility] Glucose 249(H) 70 - 100 mg/dL 06/23/2020 9:24 [facility] BUN 12 10 - 26 mg/dL 06/23/2020 9:24 [facility] Comment: Slight hemolysis identified, interpret with caution as results may be affected due to hemolysis. Creatinine 0.44(L) 0.52 - 1.04 mg/dL 06/23/2020 9:24 [facility] eGFR 131 >60 mL/min/1.7 3m2 06/23/2020 9:24 [facility] Comment:eGFR calculated gil g CKD-EPI equation for non- Americans. Multiply eGFR by 1.16 for patients. Total Protein 8.5(H) 6.3 - 8.2 g/dL 06/23/2020 9:24 [facility] Comment:Slight hemolysis chica ntified, interpret with caution as results may be affected due to hemolysis. Albumin 4.9 3.4 - 4.9 g/dL 06/23/2020 9:24 [facility] Comment:Slight hemolysis chica ntified, interpret with caution as results may be affected due to hemolysis. Alkaline Phosphatase 118 38 - 126 U/L 06/23/2020 9:24 [facility] Comment:Slight hemolysis chica ntified, hemolysis will decrease ALKP result. Interpret with caution as results may be affected due to hemolysis. AST 36 15 - 46 U/L 06/23/2020 9:24 [facility] Comment:Slight hemolysis chica ntified, interpret with caution as results may be affected due to hemolysis. ALT 20 <35 U/L 06/23/2020 9:24 [facility] Bilirubin, Total 0.7 <1.4 mg/dL 06/23/19 9:24 [facility] Calcium 10.2 8.5 - 10.5 mg/dL 06/23/2020 9:24 [facility] Calculated Calcium 9.5 8.5 - 10.5 mg/dL 06/23/2020 9:24 [facility] Comment:Slight hemolysis chica ntified, interpret with caution as results may be affected due to hemolysis. Blood VENOUS BLOOD / Unknown Venipuncture / Unknown 06/23/2020 8:53 EST 06/23/2020 9:06 EST Siobhan Hare PA-C CHEMISTRY & BLOOD GAS ORDERABLES [facility] [address] [place] [address] * (ABNORMAL) QUANT BETA HCG, (06/23/2020 8:53 EST) Beta HCG Quant, 111(H) <5 mIU/ml 06/23/2020 9:38 EST [facility] Comment: NOTE: : Negative: [...] Hare PA-C CHEMISTRY & BLOOD GAS ORDERABLES [facility] [address] [place] [address] documented in this encounter Visit Diagnoses Diagnosis of unknown anatomic location- Primary state, incidental documented in this encounter
--- OUTSIDE RECORDS SUMMARY | 2024-02-10 01:23 | XMS_ITS | Encounter Summary ---
Author Organization [facility] Address [address] [place] [address] Care Team Providers Care Dock Operator Name Role Phone Unavailable Primary Care Provider Unavailabl e Reason for Visit * Reason Onset Date Comments Appointment Related 06/12/2020 Encounter Details Date Type Department Care Team (Late st Contact Info) Description 06/12/2020 Telephone [facility] Endocrinology - [address] [facility] [address] [place] [address] Appointment Related Social History Tobacco [...] Visit [facility] Adult Primary Care - [address] [phone] Carrington Calderon MD 1 [facility] Level 1 [place] [phone] 02/27/2024 8:30 EDT Telemedicine [facility] Sleep Program - [address] [place] [address] Dwight Colbert [address] [place] [address] 02/29/2024 10:30 EDT [facility]ment [facility] Rad[facility] Medicine and PET - [address] [address] 02/29/2024 14:30 EDT [facility]ointment [facility] Radiology Nuclear Medicine and PET - [address] [address] 03/01/2024 8:00 EDT Appointment [facility] Radiology Nuclear Medicine and PET - [address] [phone] 03/01/2024 9:30 EDT Appointment [facility] Radiology Nuclear Medicine and PET - [address] [phone] documented as of this encounter Visit Diagnoses Not on filedocumented in this encounter
--- OUTSIDE RECORDS SUMMARY | 2024-02-10 01:23 | XMS_ITS | Encounter Summary ---
Author Organization [facility] Address [address] [place] [address] Care Team Providers Care Display Carver Name Role Phone Unavailable Primary Care Provider Unavailabl e Reason for Referral * DEDICATED INTERMODAL TRUCK DRIVER (Routine) - Specialty Report Received Specialty Diagnoses / Procedures Referred By Kit goode Referred To Contact Diagnoses of unknown anatomic location Procedures OB FIRST TRIMESTER (LESS THAN 14 WEEKS) TRANSVAGINAL David Martínez MD [address] [place] [phone] Referral ID Status Reason Start Date Expiration Date V isits Requested Visits Authorized [id number] Specialty Report Received 06/19/2020 1 1 Reason for Visit * DEDICATED INTERMODAL TRUCK DRIVER (Routine) - Specialty Report Received Specialty Diagnoses / Procedures Referred By Kit goode Referred To Contact Diagnoses of unknown anatomic location Procedures US OB FIRST TRIMESTER (LESS THAN 14 WEEKS) TRANSVAGINAL David Martínez MD [address] [place] [phone] Referral ID Status Reason Start Date Expiration Date V isits Requested Visits Authorized [id number] Specialty Report Received 06/19/2020 1 1 Encounter Details Date Type Department Care Team (Latest Contact Info) Description 06/20/2020 9:00 EST - 06/20/2020 23:59 EST Hospital Encounter [facility] Obstetrics Services - [address] [address] of unknown anatomic location Discharge Disposition: Home [...] Info) Description 02/21/2024 9:45 EDT Office Visit [facility] Adult Primary Care - [address] [phone] Carrington Calderon MD [address] [phone] 02/27/2024 8:30 EDT Telemedicine [facility] Sleep Program - [address] [address] Dwight Colbert [address] [place] [phone] 02/29/2024 10:30 EDT Appointment [facility] Radiology Nuclear Medicine and PET [address] [id number] 02/29/2024 14:30 EDT Appointment [facility] Radiology Nuclear Medicine and PET [address] [id number] 03/01/2024 8:00 EDT Appointment [facility] Radiology Nuclear Medicine and PET [address] [phone] 03/01/2024 9:30 EDT Appointment [facility] Radiology Nuclear Medicine and PET [address] [phone] documented as of this encounter Procedures Procedure [...] Sufficient. Impression 1st Trimester OB scan ,transvaginal +[id number] There is no visualized gestational sac either [...] The adnexa appear normal. Follow-up Per the DRIVER EDUCATION INSTRUCTOR service. Comment ========= Results discussed w/patient. DATE [...] Sufficient. Impression 1st Trimester OB scan ,transvaginal +[id number] There is no visualized gestational sac either [...] The adnexa appear normal. Follow-up Per the DRIVER EDUCATION INSTRUCTOR service. Comment ========= Results discussed w/patient. DATE [...] Sufficient. Impression 1st Trimester OB scan ,transvaginal +[id number] There is no visualized gestational sac either [...] The adnexa appear normal. Follow-up Per the DRIVER EDUCATION INSTRUCTOR service. Comment ========= Results discussed w/patient. DATE OF SERVICE: 06/20/2020 David Martínez MD [facility] OB ORDERAB LES documented in this encounter Visit Diagnoses Diagnosis of unknown anatomic location state, incidental documented in this encounter
--- OUTSIDE RECORDS SUMMARY | 2024-02-10 01:23 | XMS_ITS | Encounter Summary ---
Author Organization [facility] Address [address] [place] [address] Care Team Providers Care Ergonomics Technician Name Role Phone Unavailable Primary Care Provider Unavailabl e Reason for Referral * ARCHITECTURAL COATING FINISHER (Routine) - Specialty Report Received Specialty Diagnoses / Procedures Referred By Annetteac t Referred To Contact Diagnoses of unknown anatomic location Procedures US OB FIRST TRIMESTER (LESS THAN 14 WEEKS) TRANSVAGINAL Charu Flynn MD [address] [place] [phone] Referral ID Status Reason Start Date Expiration Date V isits Requested Visits Authorized [id number] Specialty Report Received 06/20/2020 1 1 Reason for Visit * ARCHITECTURAL COATING FINISHER (Routine) - Specialty Report Received Specialty Diagnoses / Procedures Referred By Contac t Referred To Contact Diagnoses of unknown anatomic location Procedures US OB FIRST TRIMESTER (LESS THAN 14 WEEKS) TRANSVAGINAL Charu Flynn MD [address] [phone] Referral ID Status Reason Start Date Expiration Date V isits Requested Visits Authorized [id number] Specialty Report Received 06/20/2020 1 1 Encounter Details Date Type Department Care Team (Latest Contact Info) Description 06/25/2020 10:51 EST - 06/25/2020 23:59 EST Hospital Encounter [facility] Obstetrics Services - [address] [address] of unknown anatomic location Discharge Disposition: Home [...] Office Visit [facility] Adult Primary Care [address] [address] Carrington Calderon MD [address] [place] [address] 1 [place] [address] 02/27/2024 8:30 EDT Telemedicine [facility] Sleep Program - [address] [address] Dwight Colbert [address] [place] [address] [phone] 02/29/2024 10:30 EDT Appointment [facility] Radiology Nuclear Medicine and PET [address] [phone] 02/29/2024 14:30 EDT Appointment [facility] Radiology Nuclear Medicine and PET [address] [id number] 03/01/2024 8:00 EDT Appointment [facility] Radiology Nuclear Medicine and PET [address] [id number] 03/01/2024 9:30 EDT Appointment [facility] Radiology Nuclear Medicine and PET [address] [phone] documented as of this encounter Procedures Procedure [...] 8. View: Sufficient. Impression OB Transvaginal - 87134. 1. of unknown location with findings that [...] Para 0 Hopkins children born (T) 0 Ohpkins children born (P) 0 Abortions (A) 7 [...] 8. View: Sufficient. Impression OB Transvaginal - 24090. 1. of unknown location with findings that [...]
--- OUTSIDE RECORDS SUMMARY | 2024-02-10 01:23 | XMS_ITS | Encounter Summary ---
Author Organization [facility] Address [address] [place] [address] Care Team Providers Care Education Consultant Name Role Phone Unavailable Primary Care Provider Unavailabl e Reason for Visit * Reason Onset Date Comments Follow-up 06/21/2020 Encounter Details Date Type Department Care Team (Late st Contact Info) Description 06/21/2020 Telephone [facility] OBGYN Services - [facility] [address] [place], [place] [phone] Mackenzie Kenyon MD [address] [phone] Follow-up Social History Tobacco Use Types Packs/Day [...] Kenyon MD 06/21/2020 12:12 PGY4, OBGYN Pager #[phone] documented in this encounter Plan of Treatment Upcoming Encounters Date Type Department Care Team (Late st Contact Info) Description 02/21/2024 9:45 EDT Office Visit [facility] Adult Primary Care - [address] [phone] Carrington Calderon MD [address] [phone] 02/27/2024 8:30 EDT Telemedicine [facility] Sleep Program - [address] [phone] Dwight Colbert [address] [place] [phone] 02/29/2024 10:30 EDT Appointment [facility] Radiology Nuclear Medicine and PET - [address] [id number] 02/29/2024 14:30 EDT Appointment [facility] Radiology Nuclear Medicine and PET - [address] [phone] 03/01/2024 8:00 EDT Appointment [facility] Radiology Nuclear Medicine and PET - [address] [phone] 03/01/2024 9:30 EDT Appointment [facility] Radiology Nuclear Medicine and PET - [address] [address] documented as of this encounter Visit Diagnoses Diagnosis of unknown anatomic location- Primary state, incidental documented in this encounter
--- OUTSIDE RECORDS SUMMARY | 2024-02-10 01:23 | XMS_ITS | Encounter Summary ---
Author Organization [facility] Address [address] [place] [address] Care Team Providers Care Vending Supervisor Name Role Phone Unavailable Primary Care Provider Unavailabl e Reason for Visit * Reason Onset Date Comments Other 06/17/2020 Encounter Details Date Type Department Care Team (Late st Contact Info) Description 06/17/2020 Telephone [facility] Foot & Ankle Program - [address] [address] Elza Navarro [address] [place] [address] Other Social History Tobacco Use [...] [facility] [place] [address] Carrington Calderon MD [address] [phone] 02/27/2024 8:30 EDT Telemedicine [facility] Sleep Program - [address] [address] ClobertDwight garner [address] [place] [address] 02/29/2024 10:30 EDT Appointment [facility] Radiology Nuclear Medicine and PET - [address] [address] 02/29/2024 14:30 EDT [facility] Radiology Nuclear Medicine and PET - [address] [id number] 03/01/2024 8:00 EDT [facility] Radiology Nuclear Medicine and PET - [address] [phone] 03/01/2024 9:30 EDT [facility] Radiology Nuclear Medicine and PET - [address] [phone] documented as of this encounter Visit Diagnoses Not on filedocumented in this encounter
--- OUTSIDE RECORDS SUMMARY | 2024-02-10 01:23 | XMS_ITS | Encounter Summary ---
Author Organization [facility] Address [address] [place] [address] Care Team Providers Care Varnish Mixer Name Role Phone Unavailable Primary Care Provider Unavailabl e Reason for Visit * Reason Onset Date Comments Medication Management 06/13/2020 Encounter Details Date Type Department Care Team (Late st Contact Info) Description 06/13/2020 Telephone [facility] Endocrinology - [facility] [address] [place] [address] Sara Zafar NP [address] [facility] [address] [place] [address] Medication Management Social History Tobacco [...] [facility] Adult Primary Care - [address] [phone] Carrington Calderon MD 1 [facility] 1 [place] [phone] 02/27/2024 8:30 EDT Telemedicine [facility] Sleep Program - [address] [place] [address] Sayra Dwight [address] [place] [address] 02/29/2024 10:30 EDT [facility]ment [facility] Radiology Nuclear Medicine and PET - [address] [phone] 02/29/2024 14:30 EDT [facility]ment [facility] Radiology Nuclear Medicine and PET - [address] [id number] 03/01/2024 8:00 EDT Appointment [facility] Radiology Nuclear Medicine and PET - [address] [phone] 03/01/2024 9:30 EDT Appointment [facility] Radiology Nuclear Medicine and PET - [address] [phone] documented as of this encounter Visit Diagnoses Not on filedocumented in this encounter
--- OUTSIDE RECORDS SUMMARY | 2024-02-10 01:23 | XMS_ITS | Encounter Summary ---
Author Organization [facility] Address [address] [place] [address] Care Team Providers Care Pipe Stripper Name Role Phone Unavailable Primary Care Provider Unavailabl e Reason for Visit * Reason Comments Problem Encounter Details Date Type Department Care Team (Late st Contact Info) Description 06/25/2020 9:00 EST Office Visit [facility] OBGYN Services - [address] [phone] Ana Coronado MD [address] [place] [address], Level [address] [place] [address] Unwanted fertility (Primary Dx) Social [...] told years ago ??? Depression ??? Diabetes ([facility]) A1c 10.3 on 11/28/2019 - poorly controlled ??? Difficulty opening mouth 06/13/2020 pain with opening mouth wide ??? Does not exercise 06/13/2020 due to infected toe ??? History of general anesthesia ??? Hx of ectopic 06/20/2020 ??? Irritable bowel syndrome 06/13/2020 ? ? Nausea & vomiting occasionally ??? Obesity, unspecified ??? Osteomyelitis ([facility]) of left great toe ??? Peripheral neuropathy [...] 8. View: Sufficient. Impression OB Transvaginal - 44287. 1. of unknown location with findings that [...] I spoke with Dr. Mims, the benign workers compensation claims specialist chief resident, and I will place [...] [facility] Adult Primary Care - [address] [phone] Carrington Calderon MD [address] [phone] 02/27/2024 8:30 EDT Telemedicine [facility] Sleep Program - [address] 845681 Dwight Colbert [address] [place] [phone] 02/29/2024 10:30 EDT Appointment [facility] Radiology Nuclear Medicine and PET - [address] [phone] 02/29/2024 14:30 EDT Appointment [facility] Radiology Nuclear Medicine and PET [address] [id number] 03/01/2024 8:00 EDT Appointment [facility] Radiology Nuclear Medicine and [address] [address] 03/01/2024 9:30 EDT Appointment [facility] Radiology Nuclear Medicine and PET - [address] [address] documented as of this encounter Visit Diagnoses [...]
--- OUTSIDE RECORDS SUMMARY | 2024-02-10 01:23 | XMS_ITS | Encounter Summary ---
Author Organization [facility] Address [address] [place] [address] Care Team Providers Care Manager Garage Name Role Phone Unavailable Primary Care Provider Unavailabl e Encounter Details Date Type Department Care Team (Late st Contact Info) Description 06/19/2020 13:00 EST Phlebotomy Only [facility] ED Center 2 Phlebotomy [address] [place] [address] Grain And Yeast Plants Supervisor, Acc Phlebotomy of unknown anatomic location (Primary [...] Visit [facility] Adult Primary Care - [address] 704151 Carrington Calderon MD [address] [phone] 02/27/2024 8:30 EDT Telemedicine [facility] Sleep Program - [address] [phone] Dwight Colbert [address] [place] [address] [phone] 02/29/2024 10:[address] [facility] Radiology Nuclear Medicine and PET [address] 554881 02/29/2024 14:[address] [facility] Radiology Nuclear Medicine and PET [address] [id number] 03/01/2024 8:[address] [facility] Radiology Nuclear Medicine and PET [address] [phone] 03/01/2024 9:[address] [facility] Radiology Nuclear Medicine and PET [address] 880231 documented as of this encounter Procedures Procedure Name Priority Date/Time Associated Diagnosis Comments QUANT BETA HCG, Routine 06/19/2020 13:07 EST of unknown anatomic location documented in this encounter Results * (ABNORMAL) QUANT BETA HCG, (06/19/2020 13:07 EST) Beta HCG Quant, 108(H) <5 mIU/ml 06/19/2020 14:38 EST [facility] Comment: NOTE: : Negative: [...] Martínez MD CHEMISTRY & BLOOD GAS ORDERABLES [facility] [address] [place] [address] documented in this encounter Visit Diagnoses Diagnosis of unknown anatomic location- Primary state, incidental documented in this encounter
--- OUTSIDE RECORDS SUMMARY | 2024-02-10 01:23 | XMS_ITS | Encounter Summary ---
Author Organization [facility] Address [address] [place] [address] Care Team Providers Care Housekeeping And Laundry [...] [facility] Adult Primary Care - [address] 985401 Carrington Calderon MD [address] [phone] 02/27/2024 8:30 EDT Telemedicine [facility] Sleep Program - [address] 190501 Dwight Colbert [address] [place] [address] 224261 02/29/2024 10:30 EDT Appointment [facility] Radiology Nuclear Medicine and PET - [address] 130281 02/29/2024 14:30 EDT Appointment [facility] Radiology Nuclear Medicine and PET - [address] [phone] 03/01/2024 8:00 EDT Appointment [facility] Radiology Nuclear Medicine and PET - [facility] [address] [place], [place] [phone] 03/01/2024 9:30 EDT Appointment [facility] Radiology Nuclear Medicine and PET - [address] [phone] documented as of this encounter Visit Diagnoses Not on filedocumented in this encounter"
--- OUTSIDE RECORDS SUMMARY | 2024-02-10 01:24 | XMS_ITS | Encounter Summary ---
Author Organization [facility] Address [address] [place] [address] Care Team Providers Care Central Sterile Tech Name Role Phone Unavailable Primary Care Provider Unavailabl e Encounter Details Date Type Department Care Team ([facility] Contact Info) Description 03/31/2020 Documentation Visit [facility] - [address] [place], [place] [address] Mina Peng RN Social History Tobacco Use [...] Notes * Mina Peng, MARCELO - 03/31/2020 0951 EDT Patient: Cristy Luo is a 35 [...] PENG RN 03/31/2020 10:11 * Guido Li [facility] - 03/31/2020 0937 EDT Patient: Cristy Luo is a 35 [...] Will deliver to patients home tomorrow via [employer] express. Will continue to monitor per care plan and reassess next week. GUIDO LI RPH 03/31/2020 16:11 documented in this encounter Plan of Treatment Upcoming Encounters Date Type Department Care Team (Late st Contact Info) Description 02/21/2024 9:45 EDT Office Visit [facility] Adult Primary Care - [address] [phone] Carrington Calderon MD 1 [facility] 1 [place] [phone] 02/27/2024 8:30 EDT Telemedicine [facility] Sleep Program - [address] 194581 Dwight Colbert [address] [place] [address] [phone] 02/29/2024 10:30 EDT Appointment [facility] Radiology Nuclear Medicine and PET - [address] 825171 02/29/2024 14:30 EDT Appointment [facility] Radiology Nuclear Medicine and PET [address] [phone] 03/01/2024 8:00 EDT Appointment [facility] Radiology Nuclear Medicine and PET - [address] [phone] 03/01/2024 9:30 EDT Appointment [facility] Radiology Nuclear Medicine and PET - [address] [phone] documented as of this encounter Visit Diagnoses Not on filedocumented in this encounter
--- OUTSIDE RECORDS SUMMARY | 2024-02-10 01:24 | XMS_ITS | Encounter Summary ---
Author Organization [facility] Address [address] [place] [address] Care Team Providers Care Commercial Real Estate Manager Name Role Phone Unavailable Primary Care Provider Unavailabl e Reason for Visit * Reason Comments Follow-up Encounter Details Date Type Department Care Team (Late st Contact Info) Description 04/03/2020 13:30 EDT Telemedicine [facility] Infectious Disease - [address] [phone] Tonja Plascencia NP 111 [facility], Level 5 [place] [address] Osteomyelitis of great toe of [...] For patients, please refer to guidance in [email or web address] on how to locate information. Generally this information will appear as a scanned documents saved in My Documents activity. documented in this encounter Plan of Treatment Upcoming Encounters Date Type Department Care Team (Late st Contact Info) Description 02/21/2024 9:45 EDT Office Visit [facility] Adult Primary Care - [address] [phone] Carrington Calderon MD 1 [facility] 1 [place] [address] 02/27/2024 8:30 EDT Telemedicine [facility] Sleep Program - [address] [place] [address] [place] [address] ColbertDwight garner [address] [place] [address] 02/29/2024 10:30 EDT [facility] Radiology Nuclear Medicine and PET - [address] [id number] 02/29/2024 14:30 EDT Appointment [facility] Radiology Nuclear Medicine and PET - [address] [phone] 03/01/2024 8:00 EDT Appointment [facility] Radiology Nuclear Medicine and PET - [address] [phone] 03/01/2024 9:30 EDT Appointment [facility] Radiology Nuclear Medicine and PET - [address] [phone] documented as of this encounter Visit Diagnoses Diagnosis Osteomyelitis of great toe of left foot (HCC-CMS)- Primary documented in this encounter
--- OUTSIDE RECORDS SUMMARY | 2024-02-10 01:24 | XMS_ITS | Encounter Summary ---
Author Organization [facility] Address [address] [place] [address] Care Team Providers Care History Professor Name Role Phone Unavailable Primary Care Provider Unavailabl e Reason for Visit * Reason Comments Pain Follow-up Encounter Details Date Type Department Care Team (Late st Contact Info) Description 04/30/2020 8:30 EST Office Visit [facility] Foot & Ankle Program - [address] [address] Elza Navarro DPM [address] [place] [address] Ulcer of great toe, left, with necrosis of bone ([facility]) (Primary Dx); Type 2 diabetes mellitus with diabetic polyneuropathy, with long-term current use of insulin ([facility]) Social History Tobacco Use Types Packs/Day [...] Osteomyelitis of great toe of left foot ([facility]) 03/12/2020 Priority: Medium ??? Diabetic foot ulcer associated with diabetes mellitus due to underlying condition ([facility]) 03/07/2020 Priority: Medium ??? Diabetic foot infection ([facility]) 03/06/2020 Priority: Medium ??? Diabetic foot ulcer ([facility]) 03/06/2020 Priority: Medium ??? Cellulitis of great toe of left foot 11/26/2019 Priority: Medium ??? Chronic midline low back pain without sciatica 11/26/2019 Priority: Medium ??? Chronic left ear pain 09/04/2015 Priority: Medium ??? Encounter for sterilization 11/20/2019 ??? Family history of rheumatoid arthritis 09/04/2015 ??? Type 2 diabetes mellitus ([facility]) 09/03/2015 ??? Anxiety and depression 05/12/2010 ??? Migraine with aura and without status migrainosus, not intractable Past Medical History: Diagnosis Date ??? Anxiety ??? Arthritis 12/05/19- Spine- told years ago ??? Diabetes ([facility]) A1c 10.3 on 11/28/2019 ??? [...] toe, left, with necrosis of bone ([facility]) 2. Type 2 diabetes mellitus with diabetic polyneuropathy, with long-term current use of insulin ([facility]) No orders of the defined [...] speech recognition software or keyboard data center consultant techniques. Minor irregularities or keyboarding misprints may be present documented in this encounter Plan of Treatment Upcoming Encounters Date Type Department Care Team (Late st Contact Info) Description 02/21/2024 9:45 EDT Office Visit [facility] Adult Primary Care - [address] [address] Carrington Calderon MD 1 [facility] 1 [place] [address] 02/27/2024 8:30 EDT Telemedicine [facility] Sleep Program - [address] [address] Dwight Colbert [address] [place] [address] 02/29/2024 10:30 EDT Appointment [facility] Radiology Nuclear Medicine and PET [address] [phone] 02/29/2024 14:30 EDT Appointment [facility] Radiology Nuclear Medicine and PET [address] [id number] 03/01/2024 8:00 EDT Appointment [facility] Radiology Nuclear Medicine and PET [address] 066131 03/01/2024 9:30 EDT Appointment [facility] Radiology Nuclear Medicine and [address] 102411 documented as of this encounter Visit Diagnoses Diagnosis Ulcer of great toe, left, with necrosis of bone ([facility])- Primary Type 2 diabetes mellitus with diabetic polyneuropathy, with long-term current use of insulin ([facility]) documented in this encounter Historical Medications * [...]
--- OUTSIDE RECORDS SUMMARY | 2024-02-10 01:24 | XMS_ITS | Encounter Summary ---
Author Organization [facility] Address [address] [place] [address] Care Team Providers Care Auditing Manager Name Role Phone Carrington Calderon MD Primary Care Provi anders Abigail íDaz Unavailable Carmelo Hendrickson Unavailable Unavailable Abigail Díaz Unavailable [phone] Encounter Details Date Type Department Care Team (Late st Contact Info) Description 06/23/2020 Lab Re[facility] Pathology & Laboratory Medicine - [address] [address] Mushtaq Light, DO 111 [facility], Level 5 [place] [phone] Other chronic hematogenous osteomyelitis, left ankle and [...] [facility] Adult Primary Care - [address] [phone] Carrington Calderon MD 1 [facility] Level 1 [place] [phone] 02/27/2024 8:30 EDT Telemedicine [facility] Sleep Program - [address] [place] [address] [place] [address] Dwight Colbert [address] [place] [address] 02/29/2024 10:30 EDT Appointment [facility] Radiology Nuclear Medicine and PET [address] [address] 02/29/2024 14:30 EDT Appointment [facility] Radiology Nuclear Medicine and PET - [address] [address] 03/01/2024 8:00 EDT Appointment [facility] Radiology Nuclear Medicine and PET [address] [address] 03/01/2024 9:30 EDT Appointment [facility] Radiology Nuclear Medicine and PET [address] [phone] documented as of this encounter Procedures Procedure [...] EST) % Neutrophils 48.0 % 07/03/2020 12:50 [facility] % Bands 1.0 % 07/03/2020 12:50 [facility] % Lymphocytes 40.0 % 07/03/2020 12:50 [facility] % Atypical Lymphocytes 4.0 % 07/03/2020 12:50 [facility] % Monocytes 5.0 % 07/03/2020 12:50 [facility] % Eosinophils 1.0 % 07/03/2020 12:50 [facility] % Basophils 1.0 % 07/03/2020 12:50 [facility] Absolute Neutrophils 6.40 2.20 - 8.85 K/cmm 07/03/2020 12:50 [facility] Absolute Bands 0.13 K/cmm 07/03/2020 12:50 [facility] Absolute Lymphocytes 5.33(H) 1.09 - 3.30 K/cmm 07/03/2020 12:50 [facility] Absolute Atypical Lymphocytes 0.53 K/cmm 07/03/2020 12:50 [facility] Absolute Monocytes 0.67 0.10 - 0.80 K/cmm 07/03/2020 12:50 [facility] Absolute Eosinophils 0.13 0.03 - 0.61 K/cmm 07/03/2020 12:50 [facility] ABS Basophils 0.13(H) 0.01 - 0.11 K/cmm 07/03/2020 12:50 [facility] Blood VENOUS BLOOD / Unknown 04/15/2020 11:28 EST 06/23/2020 15:27 EST Mushtaq Light DO HEMATOLOGY & PF4 OR DERABLES [facility] [address] [place] [address] * (ABNORMAL) SED. RATE:MARLYN (04/15/2020 11:28 EST) Sed Rate 25(H) 0 - 20 mm/hr 07/03/2020 12:51 [facility] Blood VENOUS BLOOD / Unknown 04/15/2020 11:28 EST 06/23/2020 15:27 EST Mushtaq Light DO HEMATOLOGY & PF4 OR DERABLES Performing Organization Address City/State/[facility] Co de Phone Number [facility] [address] [place] [address] * (ABNORMAL) COMPLETE BLOOD COUNT AND DIFFERENTIAL (04/15/2020 11:28 EST) WBC 13.33(H) 4.00 - 12.40 K/cmm 07/03/2020 12:50 [facility] RBC 4.38 3.86 - 5.04 M/cmm 07/03/2020 12:50 [facility] Hemoglobin 13.5 11.6 - 15.2 gm/dL 07/03/2020 12:50 [facility] HCT 38.6 34.9 - 44.4 % 07/03/2020 12:50 [facility] MCV 88 81 - 98 fl 07/03/2020 12:50 [facility] MCH 30.8 26.7 - 33.3 pg 07/03/2020 12:50 [facility] MCHC 35.0 32.1 - 35.9 gm/dL 07/03/2020 12:50 [facility] RDW-CV 12.5 <14.7 % 07/03/2020 12:50 [facility] RDW-SD 40.6 <50.4 fl 07/03/2020 12:50 [facility] PLT 344 141 - 377 K/cmm 07/03/2020 12:50 [facility] MPV 9.8 9.5 - 12.7 fl 07/03/2020 12:50 [facility] Type of Differential: Manual 07/03/2020 12:50 [facility] Blood VENOUS BLOOD / Unknown 04/15/2020 11:28 EST 06/23/2020 15:27 EST Mushtaq Light DO PACKAGES & DNA PROB E ORDERABLES Performing Organization Address [facility] Co de Phone Number [facility] [address] [place] [address] * (ABNORMAL) CREATININE (04/15/2020 11:28 EST) Creatinine 0.43(L) 0.52 - 1.04 mg/dL 06/30/2020 12:01 EST [facility] eGFR 132 >60 mL/min/1.7 3m2 06/30/2020 12:01 EST [facility] Comment:eGFR calculated gil curtis CKD-EPI equation for non- Americans. Multiply eGFR by 1.16 for patients. Blood VENOUS BLOOD / Unknown 04/15/2020 11:28 EST 06/23/2020 15:27 EST Mushtaq Light DO CHEMISTRY & BLOOD G ORDERABLES Performing Organization Address [facility] Co de Phone Number [facility] [address] [place] [address] * C REACTIVE PROTEIN (04/15/2020 11:28 EST) C-Reactive Protein <7.0 <10.0 mg/L 06/30/2020 12:01 EST [facility] Blood VENOUS BLOOD / Unknown 04/15/2020 11:28 EST 06/23/2020 15:27 EST Mushtaq Light DO CHEMISTRY & BLOOD G ORDERABLES Performing Organization Address [facility] Co de Phone Number [facility] [address] [place] [address] documented in this encounter Visit Diagnoses Diagnosis Other chronic hematogenous osteomyelitis, left ankle and foot (HCC-CMS) documented in this encounter Additional Health Concerns Infection Onset Date Last Indicated Resolved Time R/O COVID-19 08/04/2020 08/04/2020 08/04/2020 11:4 0 EST documented as of this encounter Care Teams Auditing Manager Relationship Specialty Start Date End Date Carrington Calderon MD 1 [facility] 1 [place] [phone] PCP - General Internal Medicine - Primary Care 12/09/20 Abigail Díaz Test Center Manager 04/21/23 01/03/24 Carmelo Hendrickson Coordinator 12/01/23 Abigail Díaz Test Center Manager 01/04/24 documented as of this encounter
--- OUTSIDE RECORDS SUMMARY | 2024-02-10 01:24 | XMS_ITS | Encounter Summary ---
Author Organization [facility] Address [address] [place] [address] Care Team Providers Care Senior Mobile Solutions Architect Name Role Phone Unavailable Primary Care [...] [facility] - [address] [phone] Carrington Calderon MD [address] [phone] 02/27/2024 8:30 EDT Telemedicine [facility] Sleep Program - [address] [address] Dwight Colbert [address] [place] [address] [phone] 02/29/2024 10:30 EDT Appointment [facility] Radiology Nuclear Medicine and PET - [address] [phone] 02/29/2024 14:30 EDT Appointment [facility] Radiology Nuclear Medicine and PET - [address] [phone] 03/01/2024 8:00 EDT Appointment [facility] Radiology Nuclear Medicine and PET - [address] [phone] 03/01/2024 9:30 EDT Appointment [facility] Radiology Nuclear Medicine and PET - [address] [address] documented as of this encounter Visit Diagnoses Not on filedocumented in this encounter
--- OUTSIDE RECORDS SUMMARY | 2024-02-10 01:24 | XMS_ITS | Encounter Summary ---
Author Organization [facility] Address [address] [place] [address] Care Team Providers Care Label Remover Name Role Phone Carrington Calderon MD Primary Care Provi anders Abigail Díaz Unavailable Carmelo Hendrickson Unavailable Unavailable Abigail Díaz Unavailable Encounter Details Date Type Department Care Team (Late st Contact Info) Description 06/19/2020 Lab Requisition [facility] Pathology & Laboratory Medicine - [address] [address] Mushtaq Light, DO 111 [facility], Level 5 [place] [phone] Other acute osteomyelitis, left ankle and foot [...] [facility] Wing 1 [place], [place] [phone] Carrington Calderon MD 1 [facility] Level 1 [place] [phone] 02/27/2024 8:30 EDT Telemedicine [facility] Sleep Program - [address] [place] [address] Dwight Colbert [address] [place] [address] 02/29/2024 10:[address] [facility] Radiology Nuclear Medicine and PET [address] [address] 02/29/2024 14:[address] [facility] Radiology Nuclear Medicine and PET [address] [address] 03/01/2024 8:[address] [facility] Radiology Nuclear Medicine and PET [address] [address] 03/01/2024 9:[address] [facility] Radiology Nuclear Medicine and PET [address] [phone] documented as of this encounter Procedures Procedure Name Priority Date/Time Associated Diagnosis Comments SED RATE After X-Ray 04/08/2020 12:00 EST Other acute osteomyelitis, left ankle and foot (HCC-CMS) COMPLETE BLOOD COUNT AND DIFFERENTIAL After X-Ray 04/08/2020 12:00 EST Other acute osteomyelitis, left ankle and foot ([facility]) C REACTIVE PROTEIN After X-Ray 04/08/2020 12 :00 EST Other acute osteomyelitis, left ankle and foot ([facility]) CREATININE After X-Ray 04/08/2020 12:00 EST Other acute osteomyelitis, left ankle and foot (HCC-CMS) documented in this encounter Results * (ABNORMAL) SED. RATE:MARLYN (04/08/2020 12:00 EST) Sed Rate 29(H) 0 - 20 mm/hr 07/01/2020 9:21 EST [facility] Blood VENOUS BLOOD / Unknown 04/08/2020 12:00 EST 06/19/2020 10:05 EST Mushtaq Light DO HEMATOLOGY & PF4 OR DERABLES [facility] [address] [place] [address] * (ABNORMAL) COMPLETE BLOOD COUNT AND DIFFERENTIAL (04/08/2020 12:00 EST) WBC 13.10(H) 4.00 - 12.40 K/cmm 07/01/2020 9:20 [facility] RBC 4.42 3.86 - 5.04 M/cmm 07/01/2020 9:20 [facility] Hemoglobin 13.3 11.6 - 15.2 gm/dL 07/01/2020 9:20 [facility] HCT 38.1 34.9 - 44.4 % 07/01/2020 9:20 [facility] MCV 86 81 - 98 fl 07/01/2020 9:20 [facility] MCH 30.1 26.7 - 33.3 pg 07/01/2020 9:20 [facility] MCHC 34.9 32.1 - 35.9 gm/dL 07/01/2020 9:20 [facility] RDW-CV 12.5 <14.7 % 07/01/2020 9:20 [facility] RDW-SD 39.4 <50.4 fl 07/01/2020 9:20 [facility] PLT 336 141 - 377 K/cmm 07/01/2020 9:20 [facility] MPV 10.1 9.5 - 12.7 fl 07/01/2020 9:20 [facility] % Neutrophils 54.3 % 07/01/2020 9:20 [facility] % Lymphocytes 34.2 % 07/01/2020 9:20 [facility] % Monocytes 7.4 % 07/01/2020 9:20 [facility] % Eosinophils 3.4 % 07/01/2020 9:20 [facility] % Basophils 0.5 % 07/01/2020 9:20 [facility] % Immature Grans 0.2 % 07/01/19 9:20 [facility] Absolute Neutrophils 7.10 2.20 - 8.85 K/cmm 07/01/2020 9:20 [facility] Absolute Lymphocytes 4.48(H) 1.09 - 3.30 K/cmm 07/01/2020 9:20 [facility] Absolute Monocytes 0.97(H) 0.10 - 0.80 K/cmm 07/01/2020 9:20 [facility] Absolute Eosinophils 0.45 0.03 - 0.61 K/cmm 07/01/2020 9:20 [facility] ABS Basophils 0.07 0.01 - 0.11 K/cmm 07/01/2020 9:20 [facility] Absolute Immature Grans 0.03 0.00 - 0.06 K/cmm 07/01/2020 9:20 [facility] Type of Differential: Auto 07/01/2020 9:20 [facility] Blood VENOUS BLOOD / Unknown 04/08/2020 12:00 EST 06/19/2020 10:05 EST Mushtaq Light DO PACKAGES & DNA PROB E ORDERABLES Performing Organization Address City/State/[facility] Co de Phone Number [facility] [address] [place] [address] * (ABNORMAL) CREATININE (04/08/2020 12:00 EST) Creatinine 0.42(L) 0.52 - 1.04 mg/dL 06/30/2020 12:00 [facility] eGFR 133 >60 mL/min/1.7 3m2 06/30/2020 12:00 [facility] Comment:eGFR calculated gil curtis CKD-EPI equation for non- Americans. Multiply eGFR by 1.16 for patients. Blood VENOUS BLOOD / Unknown 04/08/2020 12:00 EST 06/19/2020 10:05 EST Mushtaq Light DO CHEMISTRY & BLOOD G ORDERABLES Performing Organization Address City/[facility]/ZIP Co de Phone Number [facility] [address] [place] [address] * C REACTIVE PROTEIN (04/08/2020 12:00 EST) C-Reactive Protein 7.7 <10.0 mg/L 06/30/2020 12:00 EST [facility] Blood VENOUS BLOOD / Unknown 04/08/2020 12:00 EST 06/19/2020 10:05 EST Mushtaq Light CHEMISTRY & BLOOD G ORDERABLES Performing Organization Address [facility] Co de Phone Number [facility] [address] [place] [address] documented in this encounter Visit Diagnoses Diagnosis Other acute osteomyelitis, left ankle and foot (HCC-CMS) documented in this encounter Additional Health Concerns Infection Onset Date Last Indicated Resolved Time R/O COVID-19 08/04/2020 08/04/2020 08/04/2020 11:4 0 EST documented as of this encounter Care Teams Label Remover Relationship Specialty Start Date End Date Carrington Calderon MD [address] [phone] PCP - General Internal Medicine - Primary Care 12/09/20 Abigail Díaz Circuit Board Repair Technician 04/21/23 01/03/24 Carmelo Hendrickson Coordinator 12/01/23 Abigail Díaz Circuit Board Repair Technician 01/04/24 documented as of this encounter
--- OUTSIDE RECORDS SUMMARY | 2024-02-10 01:24 | XMS_ITS | Encounter Summary ---
Author Organization [facility] Address [address] [place] [address] Care Team Providers Care C Web Developer Name Role Phone Unavailable Primary Care Provider Unavailabl e Reason for Visit * Reason Comments Diabetes Encounter Details Date Type Department Care Team (Latest Contact Info) Description 04/14/2020 13:30 EST Telemedicine [facility] Adult Primary Care - [address] [phone] Tonja Alejandro PA-C [address] [place] [address] [place] [phone] Polyneuropathy associated with underlying disease (HCC-CMS) [...] For patients, please refer to guidance in Chartbeat on how to locate information. Generally this information will appear as a scanned documents saved in My Documents activity. * Tonja Alejandro PA-C - 04/14/2020 1330 EST [facility] ADULT PRIMARY CARE [place] PROGRESS / FOLLOWUP NOTE - 04/14/2020 CONSENT: [...] Tonja Alejandro PA-C / DB Dictation ID: [id number] cc: documented in this encounter Plan of Treatment Upcoming Encounters Date Type Department Care Team (Late st Contact Info) Description 02/21/2024 9:45 EDT Office Visit [facility] Adult Primary Care - [address] [address] Carrington Calderon MD [address] [place] [address] 1 [place] [phone] 02/27/2024 8:30 EDT Telemedicine [facility] Sleep Program - [address] [phone] Dwight Colbert [address] [place] [phone] 02/29/2024 10:30 EDT Appointment [facility] Radiology Nuclear Medicine and PET - [address] [phone] 02/29/2024 14:30 EDT Appointment [facility] Radiology Nuclear Medicine and PET - [address] [address] 03/01/2024 8:00 EDT Appointment [facility] Radiology Nuclear Medicine and PET - [address] [address] 03/01/2024 9:30 EDT Appointment [facility] Radiology Nuclear Medicine and PET - [address] [address] documented as of this encounter Visit Diagnoses Diagnosis Polyneuropathy associated with underlying disease ([facility])- Primary Osteomyelitis of great toe of left foot ([facility]) 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 ([facility]) Type II or unspecified type diabetes mellitus with other specified manifestations, not stated as uncontrolled documented in this encounter
--- OUTSIDE RECORDS SUMMARY | 2024-02-10 01:24 | XMS_ITS | Encounter Summary ---
Author Organization [facility] Address [address] [place] [address] Care Team Providers Care Metallography Teacher Name Role Phone Unavailable Primary Care Provider Unavailabl e Reason for Visit * Reason Comments Follow-up Encounter Details Date Type Department Care Team (Late st Contact Info) Description 04/18/2020 10:30 EST Office Visit [facility] Foot & Ankle Program - [address] [address] Elza Navarro DPM [address] [place] [phone] Ulcer of great toe, left, with necrosis of bone ([facility]) (Primary Dx); Type 2 diabetes mellitus with diabetic polyneuropathy, with long-term current use of insulin ([facility]) Social History Tobacco Use Types [...] Navarro, DPM - 04/18/2020 0000 EST [facility] FOOT AND ANKLE PROGRAM PROGRESS / [...] Elza Navarro DPM / SWAPNIL Dictation ID: [id number] cc: documented in this encounter Plan of Treatment Upcoming Encounters Date Type Department Care Team (Late st Contact Info) Description 02/21/2024 9:45 EDT Office Visit [facility] Adult Primary Care [address] [address] Carrington Calderon MD 1 [facility] Level 1 [place] [phone] 02/27/2024 8:30 EDT Telemedicine [facility] Sleep Program - [address] [place] [address] [place] [address] Dwight Colbert [address] [place] [phone] 02/29/2024 10:30 EDT [facility] Radiology Nuclear Medicine and PET - [address] [address] 02/29/2024 14:[address] [facility] Radiology Nuclear Medicine and PET - [address] [id number] 03/01/2024 8:[address] [facility] Radiology Nuclear Medicine and PET - [address] [phone] 03/01/2024 9:[address] [facility] Radiology Nuclear Medicine and PET - [address] [address] documented as of this encounter Visit Diagnoses Diagnosis Ulcer of great toe, left, with necrosis of bone ([facility])- Primary Type 2 diabetes mellitus with diabetic polyneuropathy, with long-term current use of insulin ([facility]) documented in this encounter
--- OUTSIDE RECORDS SUMMARY | 2024-02-10 01:24 | XMS_ITS | Encounter Summary ---
Author Organization [facility] Address [address] [place] [address] Care Team Providers Care Trapper Animal Name Role Phone Unavailable Primary Care Provider Unavailabl e Reason for Visit * Reason Comments Foot Problem Encounter Details Date Type Department Care Team (Latest Contact Info) Description 06/05/2020 10:30 EST Office Visit [facility] Foot & Ankle Program - [address] [place] [address] Elza Navarro DPM [address] [place] [phone] Osteomyelitis of toe of left foot ([facility]) (Primary Dx); Type 2 diabetes mellitus with diabetic polyneuropathy, with long-term current use of insulin ([facility]) Social History Tobacco Use Types Packs/Day [...] diabetes mellitus with left diabetic foot ulcer ([facility]) 05/03/2020 Priority: Medium ??? Osteomyelitis of great toe of left foot ([facility]) 03/12/2020 Priority: Medium ??? Diabetic foot ulcer associated with diabetes mellitus due to underlying condition ([facility]) 03/07/2020 Priority: Medium ??? Diabetic foot infection ([facility]) 03/06/2020 Priority: Medium ??? Diabetic foot ulcer ([facility]) 03/06/2020 Priority: Medium ??? Cellulitis of great toe of left foot 11/26/2019 Priority: Medium ??? Chronic midline low back pain without sciatica 11/26/2019 Priority: Medium ??? Chronic left ear pain 09/04/2015 Priority: Medium ??? Encounter for sterilization 11/20/2019 ??? Family history of rheumatoid arthritis 09/04/2015 ??? Type 2 diabetes mellitus ([facility]) 09/03/2015 ??? Anxiety and depression 05/12/2010 ??? Migraine with aura and without status migrainosus, not intractable Past Medical History: Diagnosis Date ??? Anxiety ??? Arthritis 12/05/19- Spine- told years ago ??? Diabetes ([facility]) A1c 10.3 on 11/28/2019 ??? History [...] 1. Osteomyelitis of toe of left foot ([facility]) CASE REQUEST OPERATING ROOM 2. Type 2 diabetes mellitus with diabetic polyneuropathy, with long-term current use of insulin ([facility]) CASE REQUEST OPERATING ROOM No orders [...] speech recognition software or keyboard clinical data assistant techniques. Minor irregularities or keyboarding misprints may be present documented in this encounter Plan of Treatment Upcoming Encounters Date Type Department Care Team (Late st Contact Info) Description 02/21/2024 9:45 EDT Office Visit [facility] Adult Primary Care - [address] [phone] Carrington Calderon MD [address] [phone] 02/27/2024 8:30 EDT Telemedicine [facility] Sleep Program - [address] [address] Dwight Colbert [address] [place] [phone] 02/29/2024 10:30 EDT Appointment [facility] Radiology Nuclear Medicine and PET - [address] [phone] 02/29/2024 14:30 EDT [facility]ointment [facility] Radiology Nuclear Medicine and PET - [address] [phone] 03/01/2024 8:00 EDT Appointment [facility] Radiology Nuclear Medicine and PET - [address] [phone] 03/01/2024 9:30 EDT Appointment [facility] Radiology Nuclear Medicine and PET - [address] [phone] documented as of this encounter Visit Diagnoses Diagnosis Osteomyelitis of toe of left foot ([facility])- Primary Unspecified osteomyelitis, ankle and foot Type 2 diabetes mellitus with diabetic polyneuropathy, with long-term current use of insulin ([facility]) documented in this encounter Orders Case Request Count Last Ordered Date First Orde red Date CASE REQUEST OPERATING ROOM 1 06/05/2020 documented in this encounter
--- OUTSIDE RECORDS SUMMARY | 2024-02-10 01:24 | XMS_ITS | Encounter Summary ---
Author Organization [facility] Address [address] [place] [address] Care Team Providers Care Paper Cup Machine Tender Name Role Phone Unavailable Primary [...] [facility] Adult Primary Care - [address] [phone] Carrington Calderon MD [address] [phone] 02/27/2024 8:30 EDT Telemedicine [facility] Sleep Program - [address] [phone] Dwight Colbert [address] [place] [phone] 02/29/2024 10:30 EDT Appointment [facility] Radiology Nuclear Medicine and PET - [address] [id number] 02/29/2024 14:30 EDT Appointment [facility] Radiology Nuclear Medicine and PET - [address] [phone] 03/01/2024 8:00 EDT Appointment [facility] Radiology Nuclear Medicine and PET - [address] [address] 03/01/2024 9:30 EDT Appointment [facility] Radiology Nuclear Medicine and PET - [address] [phone] documented as of this encounter Visit Diagnoses Not on filedocumented in this encounter
--- OUTSIDE RECORDS SUMMARY | 2024-02-10 01:24 | XMS_ITS | Encounter Summary ---
Author Organization [facility] Address [address] [place] [address] Care Team Providers Care Warp Splitter Name Role Phone Unavailable Primary Care Provider [...] Visit [facility] Adult Primary Care - [address] [phone] Carrington Calderon MD [address] [phone] 02/27/2024 8:30 EDT Telemedicine [facility] Sleep Program - [address] [address] Dwight Colbert [address] [place] [phone] 02/29/2024 10:30 EDT Appointment [facility] Radiology Nuclear Medicine and PET - [address] [phone] 02/29/2024 14:30 EDT Appointment [facility] Radiology Nuclear Medicine and PET - [address] [phone] 03/01/2024 8:00 EDT Appointment [facility] Radiology Nuclear Medicine and PET - [address] [phone] 03/01/2024 9:30 EDT Appointment [facility] Radiology Nuclear Medicine and PET - [address] [address] documented as of this encounter Visit Diagnoses Not on filedocumented in this encounter
--- OUTSIDE RECORDS SUMMARY | 2024-02-10 01:24 | XMS_ITS | Encounter Summary ---
Author Organization [facility] Address [address] [place] [address] Care Team Providers Care Logistics Officer Name Role Phone Unavailable Primary Care Provider Unavailabl e Reason for Visit * Reason Comments Toe Injury diabetic foot ulcer on right great toe. admitted in march for IV abx x1week and then d/c with PO abx [id number]. last night noticed swelling, increased pain, redness and drainage from ulcer. dressed prior to arrival. unable to bear weight * Auth/Cert Specialty Diagnoses / Procedures Referred By Contac t Referred To Contact Diagnoses Diabetic foot infection ([facility]) 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 ([facility]) Referral ID Status Reason Start Date Expiration Date Visits Re quested Visits Authorized [id number] 1 1 Encounter Details Date Type Department Care Team (Late st Contact Info) Description 05/03/2020 21:20 EST - 05/04/2020 20:27 [facility] Hospital Encounter [facility] Orthopedics Unit [address] [phone] Fran Barbosa MD 111 [facility], Level 1 [place] [address] Lalito You MD MPH [address] [phone] Obi Hancock MD [address] [phone] Diabetic foot infection (HCC-CMS) (Primary Dx); Type [...] Diagnosis: Sepsis secondary to diabetic foot infection ([facility]) with osteomyelitis Additional Problems Managed in the Hospital Active Hospital Problems Diagnosis Date Noted ??? *Diabetic foot infection ([facility]) 03/06/2020 ??? 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 ([facility]) 05/03/2020 Resolved Hospital Problems No resolved problems [...] lantus (22 units at bedtime) - Continue ARMATURE REWINDER gabapentin 100mg TID Hospital Course: Mrs. Cristy Luo??is a 35 year old??female??with a past medical history notable for insulin-dependent T2DM (c/b peripheral neuropathy and diabetic foot ulcer), recurrent migraine, TERI/MDD admitted 05/03/20 for worsening left foot pain, suspicious for recurrent diabetic foot infection. Of note, patient was recent admitted to [facility] for management of left great toe osteomyelitis between 03/06/20 to 03/12/20. During that time, she was started on cefazolin IV and metronidazole for six weeks. She completed her antibiotic course outpatient on 04/20/20. She complained of no symptoms during that time. On the night of 05/02/20, she noted worsening left foot pain and swelling after spending the day decorating her home for [employer]. She subsequently went to the [facility] ED for further evaluation. On admission, she [...] Component Value Units Date/Time Bacterial Culture, Blood [[id number]] Collected: 05/04/2040 Lab Status: In process Specimen: Blood, Venous Updated: 05/04/20 0733 Bacterial Culture, Blood [[id number]] Collected: 05/04/2047 Lab Status: In process Specimen: Blood, Venous Updated: 05/04/20 0733 Hemoglobin A1c [[id number]] Collected: 05/03/208 Lab Status: In process Specimen: Blood, Venous Updated: 05/04/20 0043 Upcoming Appointments May 14, 2020 14:30 Office Visit with Elza Navarro DPM [facility] Foot & Ankle Program - Paul (--) [facility] [address] Follow-up appointments and procedures Amb Consult/Follow Up [...] spending the day decorating her home for [employer]. On further ROS, she denied F/C/S, N/V/D, [...] lantus (22 units at bedtime) - Continue ARMATURE REWINDER gabapentin 100mg TID # Chronic Migraine - [...] Notes * Sara Banks MD - 05/03/2020 1255 EST Medicine Admission History & Physical Service [...] 12/05/19- Spine- told years ago ??? Diabetes ([facility]) A1c 10.3 on 11/28/2019 [...] for now: 22U Lantus at bedtime. - ARMATURE REWINDER gabapentin 100mg TID (just started this 3 [...] documented in this encounter Consult Notes * Weakley, Mushtaq J, DO - 05/04/2020 1059 EST [...] weeks of cefazolin 2gm q8h and PO [id number] q8h, with dressing changes and short-interval podiatry [...] 12/05/19- Spine- told years ago ??? 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 [...] x1week and then d/c with PO abx [id number]. last night noticed swelling, increased pain, redness [...] afterwards. She is followed by Dr. Navarro, accounting systems analyst. Last night, patient noticed swelling, increased 9/10 [...] limited to diabetic foot infection and osteomyelitis. ([id number]) Paged Orthopedic resident. The patient had a [...] Lalito You. Final diagnoses: Diabetic foot infection ([facility]) MDM MDM Number of Diagnoses or Management Options Diabetic foot infection ([facility]) Diagnosis management comments: 5 Amount and/or Complexity [...] EST Data: Pt left AMA d/t children's service worker issues. Action: notified and spoke to the pt. Response: Pt signed AMA paperwork, left the unit at 2009. LIZZ RUIZ RN 05/04/2020 20:12 * Plan of Care - Jonelle Sun RN - 05/04/2020 1410 EST Problem: Daily Care Plan Goals Goal: Care Plan Documentation Flowsheets (Taken 05/04/2020 6720) Area of Focus: Discharge Plan Goal This [...] Education provided and verbalized back to this auto service writer by pt, expressing understanding of teaching. [...] [facility] Adult Primary Care - [address] [phone] Carrington Calderon MD [address] [phone] 02/27/2024 8:30 EDT Telemedicine [facility] Sleep Program - [address] [phone] Dwight Colbert [address] [place] [phone] 02/29/2024 10:30 EDT Appointment [facility] Radiology Nuclear Medicine and PET [address] [phone] 02/29/2024 14:30 EDT Appointment [facility] Radiology Nuclear Medicine and PET [address] [phone] 03/01/2024 8:00 EDT Appointment [facility] Radiology Nuclear Medicine and [address] [phone] 03/01/2024 9:30 EDT Appointment [facility] Radiology Nuclear Medicine and [address] [address] documented as of this encounter Procedures Procedure [...] 03/19/2020, there has been interval increase in [id number] in the first proximal phalanx. There is [...] Growth at 5 days 05/09/2020 7:45 EST [facility] Blood VENOUS BLOOD / Unknown Blood Culture / Unknown 05/04/2020 5:47 EST 05/04/2020 7:33 EST Sara Banks MD MICROBIOLOGY - GENER AL ORDERABLES [facility] [address] [place] [address] * (ABNORMAL) BACTERIAL CULTURE, BLOOD (05/04/2020 5:40 EST) Organism ID Corynebacterium species(AA) 05/06/2020 14:29 [facility] Comment:Detected in the aero bic bottle at 37 hours Blood VENOUS BLOOD / Unknown Blood Culture / Unknown 05/04/2020 5:40 EST 05/04/2020 7:33 EST Sara Banks MD MICROBIOLOGY - GENER AL ORDERABLES Performing Organization Address City/State/[facility] Co de Phone Number [facility] [address] [place] [address] * (ABNORMAL) COMPLETE BLOOD COUNT (05/04/2020 5:32 EST) WBC 13.43(H) 4.00 - 12.40 K/cmm 05/04/2020 6:24 [facility] RBC 4.27 3.86 - 5.04 M/cmm 05/04/2020 6:24 [facility] Hemoglobin 13.1 11.6 - 15.2 gm/dL 05/04/2020 6:24 [facility] HCT 38.3 34.9 - 44.4 % 05/04/2020 6:24 [facility] MCV 90 81 - 98 fl 05/04/2020 6:24 [facility] MCH 30.7 26.7 - 33.3 pg 05/04/2020 6:24 [facility] MCHC 34.2 32.1 - 35.9 gm/dL 05/04/2020 6:24 [facility] RDW-CV 12.4 <14.7 % 05/04/2020 6:24 [facility] RDW-SD 40.6 <50.4 fl 05/04/2020 6:24 [facility] PLT 335 141 - 377 K/cmm 05/04/2020 6:24 [facility] MPV 10.0 9.5 - 12.7 fl 05/04/2020 6:24 [facility] Blood VENOUS BLOOD / Unknown Venipuncture / Unknown 05/04/2020 5:32 EST 05/04/2020 6:11 EST Lalito You MD MPH HEMATOLOGY & PF4 OR DERABLES Performing Organization Address [facility] de Phone Number [facility] [address] [place] [address] * (ABNORMAL) CREATININE (05/04/2020 5:32 EST) Creatinine 0.46(L) 0.52 - 1.04 mg/dL 05/04/2020 6:52 EST [facility] eGFR 129 >60 mL/min/1.7 3m2 05/04/2020 6:52 EST [facility] Comment:eGFR calculated gil curtis CKD-EPI equation for non- Americans. Multiply eGFR by 1.16 for patients. Blood VENOUS BLOOD / Unknown Venipuncture / Unknown 05/04/2020 5:32 EST 05/04/2020 6:22 EST Lalito You MD MPH CHEMISTRY & BLOOD G ORDERABLES Performing Organization Address [facility] Co de Phone Number [facility] [address] [place] [address] * BUN (05/04/2020 5:32 EST) BUN 17 10 - 26 mg/dL 05/04/2020 6:52 EST [facility] Blood VENOUS BLOOD / Unknown Venipuncture / Unknown 05/04/2020 5:32 EST 05/04/2020 6:22 EST Lalito You MD MPH CHEMISTRY & BLOOD G ORDERABLES Performing Organization Address [facility] de Phone Number [facility] [address] [place] [address] * ELECTROLYTES (05/04/2020 5:32 EST) Sodium 137 136 - 145 mEq/L 05/04/2020 6:52 EST [facility] Potassium 4.4 3.5 - 5.0 mEq/L 05/04/2020 6:52 EST [facility] Chloride 104 96 - 110 mEq/L 05/04/2020 6:52 EST [facility] CO2 Total 24 22 - 32 mEq/L 05/04/2020 6:52 EST [facility] Blood VENOUS BLOOD / Unknown Venipuncture / Unknown 05/04/2020 5:32 EST 05/04/2020 6:22 EST Lalito You MD MPH CHEMISTRY & BLOOD G ORDERABLES Performing Organization Address [facility] Co de Phone Number [facility] [address] [place] [address] * COVID-19 TEST [facility] PCR (05/03/2020 23:59 EST) Swab ENTIRE NASOPHARYNX / Unknown Swab / Unknown 05/03/2020 23:59 EST 05/04/2020 0:01 EST Fran Barbosa MD MICROBIOLOGY - GENERAL ORDERABLES Performing Organization Address [facility] Co de Phone Number [facility] [address] [place] [address] * COVID-19 TESTING (05/03/2020 23:59 EST) COVID-19 rt-PCR Result Negative Negative 05/04/2020 9:49 [facility] Comment: This test has not [...] history, and epidemiological information. Performed on the [employer] instrument Performing [facility] [place] [facility] Lab 05/04/2020 9:49 EST [facility] Swab ENTIRE NASOPHARYNX / Unknown Swab / Unknown 05/03/2020 23:59 EST 05/04/2020 0:01 EST Fran Barbosa MD MICROBIOLOGY - GENERAL ORDERABLES [facility] [address] [place] [address] * XR FOOT LEFT 3 OR MORE [...] A1c 9.1(H) <5.7 % 05/05/2020 8:32 EST [facility] Comment: Glycemic Status References: Normal: [...] Avg Glucose 214 mg/dL 0 8:32 EST [facility] Comment:The eAG represents t he A1c result expressed as average glucose in mg/dL. Blood VENOUS BLOOD / Unknown Venipuncture / Unknown 05/03/2020 21:38 EST 05/03/2020 21:55 EST Sara Banks MD CHEMISTRY & BLOOD GA S ORDERABLES [facility] [address] [place] [address] * (ABNORMAL) SED. RATE:WESTERGREN (05/03/2020 21:38 EST) Sed Rate 36(H) 0 - 20 mm/hr 05/03/2020 22:09 EST [facility] Blood VENOUS BLOOD / Unknown Venipuncture / Unknown 05/03/2020 21:38 EST 05/03/2020 21:55 EST Fran Barbosa MD HEMATOLOGY & PF4 ORDERABLES Performing Organization Address City/[facility]/ZIP Co de Phone Number [facility] [address] [place] [address] * (ABNORMAL) C REACTIVE PROTEIN (05/03/2020 21:38 EST) C-Reactive Protein 39.2(H) <10.0 mg/L 05/03/2020 22:19 [facility] Blood VENOUS BLOOD / Unknown Venipuncture / Unknown 05/03/2020 21:38 EST 05/03/2020 21:55 EST Fran Barbosa MD CHEMISTRY & B LOOD GAS ORDERABLES Performing Organization Address [facility] Co de Phone Number [facility] [address] [place] [address] * (ABNORMAL) COMPLETE BLOOD COUNT AND DIFFERENTIAL (05/03/2020 21:38 EST) WBC 16.98(H) 4.00 - 12.40 K/cmm 05/03/2020 22:03 [facility] RBC 4.38 3.86 - 5.04 M/cmm 05/03/2020 22:03 [facility] Hemoglobin 13.7 11.6 - 15.2 gm/dL 05/03/2020 22:03 [facility] HCT 38.9 34.9 - 44.4 % 05/03/2020 22:03 [facility] MCV 89 81 - 98 fl 05/03/2020 22:03 [facility] MCH 31.3 26.7 - 33.3 pg 05/03/2020 22:03 [facility] MCHC 35.2 32.1 - 35.9 gm/dL 05/03/2020 22:03 [facility] RDW-CV 12.5 <14.7 % 05/03/2020 22:03 [facility] RDW-SD 41.1 <50.4 fl 05/03/2020 22:03 [facility] PLT 365 141 - 377 K/cmm 05/03/2020 22:03 [facility] MPV 9.7 9.5 - 12.7 fl 05/03/2020 22:03 [facility] % Neutrophils 56.7 % 05/03/2020 22:03 [facility] % Lymphocytes 29.4 % 05/03/2020 22:03 [facility] % Monocytes 8.8 % 05/03/2020 22:03 [facility] % Eosinophils 4.4 % 05/03/2020 22:03 [facility] % Basophils 0.5 % 05/03/2020 22:03 [facility] % Immature Grans 0.2 % 05/03/20 20 22:03 [facility] Absolute Neutrophils 9.61(H) 2.20 - 8.85 K/cmm 05/03/2020 22:03 [facility] Absolute Lymphocytes 5.00(H) 1.09 - 3.30 K/cmm 05/03/2020 22:03 [facility] Absolute Monocytes 1.49(H) 0.10 - 0.80 K/cmm 05/03/2020 22:03 [facility] Absolute Eosinophils 0.75(H) 0.03 - 0.61 K/cmm 05/03/2020 22:03 [facility] ABS Basophils 0.09 0.01 - 0.11 K/cmm 05/03/2020 22:03 [facility] Absolute Immature Grans 0.04 0.00 - 0.06 K/cmm 05/03/2020 22:03 [facility] Type of Differential: Auto 05/03/2020 22:03 [facility] Blood VENOUS BLOOD / Unknown Venipuncture / Unknown 05/03/2020 21:38 EST 05/03/2020 21:55 EST Fran Barbosa MD PACKAGES & DN A PROBE ORDERABLES [facility] [address] [place] [address] documented in this encounter Visit Diagnoses Diagnosis Diabetic foot infection ([facility] Primary Type II or unspecified type diabetes mellitus with other specified manifestations, not stated as uncontrolled Diabetic foot infection ([facility]CC-[facility]) Type II or unspecified type diabetes mellitus with other specified manifestations, not stated as uncontrolled 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 ([facility]) Type II or unspecified type diabetes mellitus with other specified manifestations, not stated as uncontrolled Sepsis without acute organ dysfunction, due to unspecified organism (HCC-CMS) 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 ([facility]) Type II or unspecified type [...] Discontinued, Routine 0043 (Hold - Provide r: iLzz Ruiz RN - Reason: Order parameters not [...] 2 mg 1 05/04/2020 polyethylene glycol 3350 (ME RALAX) packet 17 g 1 05/04/2020 Admission Count Last Ordered Date First Orde red Date ADMIT TO INPATIENT 1 05/03/2020 Transfer Count Last Ordered Date First Orde red Date TEACHING SERVICE 1 05/04/2020 ED BED REQUEST 1 05/03/2020 Discharge Count Last Ordered Date First Orde red Date DISCHARGE PATIENT 1 05/04/2020 documented in this encounter
--- OUTSIDE RECORDS SUMMARY | 2024-02-10 01:24 | XMS_ITS | Encounter Summary ---
Author Organization [facility] Address [address] [place] [address] Care Team Providers Care Logging Contractor Name Role Phone Unavailable Primary Care Provider Unavailabl e Reason for Visit * Reason Onset Date Comments Follow-up 05/05/2020 Encounter Details Date Type Department Care Team (Late st Contact Info) Description 05/05/2020 Telephone [facility] Infectious Disease - [address] [phone] Mushtaq Light, DO 111 [facility], Level 5 [place] [address] Follow-up Social History Tobacco Use [...] childcare. She is currently back home in [place] is clinically stable. Unfortunately her MRI showed osteomyelitis by report of the great toe. I called in a prescription for Augmentin 875 p.o. twice daily to her pharmacy in [place] and she will pick it up later [...] Visit [facility] Adult Primary Care - [address] [phone] Carrington Calderon MD [address] [phone] 02/27/2024 8:30 EDT Telemedicine [facility] Sleep Program - [address] [phone] Dwight Colbert [address] [place] [phone] 02/29/2024 10:30 EDT Appointment [facility] Radiology Nuclear Medicine and PET - [address] [phone] 02/29/2024 14:30 EDT Appointment [facility] Radiology Nuclear Medicine and PET [address] [phone] 03/01/2024 8:00 EDT Appointment [facility] Radiology Nuclear Medicine and PET - [address] [phone] 03/01/2024 9:30 EDT Appointment [facility] Radiology Nuclear Medicine and PET [address] [phone] documented as of this encounter Visit Diagnoses Not on filedocumented in this encounter
--- OUTSIDE RECORDS SUMMARY | 2024-02-10 01:24 | XMS_ITS | Encounter Summary ---
Author Organization [facility] Address [address] [place] [address] Care Team Providers Care Jazz Musician Name Role Phone Unavailable Primary Care Provider [...] [facility] Adult Primary Care - [address] [phone] Carrington Calderon MD [address] [phone] 02/27/2024 8:30 EDT Telemedicine [facility] Sleep Program - [address] [phone] Dwight Colbert [address] [place] [phone] 02/29/2024 10:30 EDT Appointment [facility] Radiology Nuclear Medicine and PET - [address] [phone] 02/29/2024 14:30 EDT Appointment [facility] Radiology Nuclear Medicine and PET - [address] [phone] 03/01/2024 8:00 EDT Appointment [facility] Radiology Nuclear Medicine and PET - [address] [address] 03/01/2024 9:30 EDT Appointment [facility] Radiology Nuclear Medicine and PET - [address] [phone] documented as of this encounter Visit Diagnoses Not on filedocumented in this encounter
--- OUTSIDE RECORDS SUMMARY | 2024-02-10 01:24 | XMS_ITS | Encounter Summary ---
Author Organization [facility] Address [address] [place] [address] Care Team Providers Care Litigation Attorney Name Role Phone Unavailable Primary Care Provider Unavailabl e Reason for Visit * Reason Comments Foot Problem Encounter Details Date Type Department Care Team (Late st Contact Info) Description 05/06/2020 10:30 EST Office Visit [facility] Foot & Ankle Program - [address] [place] [address] Elza Navarro DPM [address] [place] [phone] Ulcer of great toe, left, with necrosis of bone ([facility]) (Primary Dx); Type 2 diabetes mellitus with diabetic polyneuropathy, with long-term current use of insulin ([facility]) Social History Tobacco Use Types Packs/Day [...] the great toe. She had to leave [place] due to childcare issues at home. She [...] diabetes mellitus with left diabetic foot ulcer ([facility]) 05/03/2020 Priority: Medium ??? Osteomyelitis of great toe of left foot ([facility]) 03/12/2020 Priority: Medium ??? Diabetic foot ulcer associated with diabetes mellitus due to underlying condition ([facility]) 03/07/2020 Priority: Medium ??? Diabetic foot infection ([facility]) 03/06/2020 Priority: Medium ??? Diabetic foot ulcer ([facility]) 03/06/2020 Priority: Medium ??? Cellulitis of great toe of left foot 11/26/2019 Priority: Medium ??? Chronic midline low back pain without sciatica 11/26/2019 Priority: Medium ??? Chronic left ear pain 09/04/2015 Priority: Medium ??? Encounter for sterilization 11/20/2019 ??? Family history of rheumatoid arthritis 09/04/2015 ??? Type 2 diabetes mellitus ([facility]) 09/03/2015 ??? Anxiety and depression 05/12/2010 ??? Migraine with aura and without status migrainosus, not intractable Past Medical History: Diagnosis Date ??? Anxiety ??? Arthritis 12/05/19- Spine- told years ago ??? Diabetes ([facility]) A1c 10.3 on 11/28/2019 ??? [...] toe, left, with necrosis of bone ([facility]) 2. Type 2 diabetes mellitus with diabetic polyneuropathy, with long-term current use of insulin ([facility]) No orders of the defined types [...] speech recognition software or keyboard data entry analyst techniques. Minor irregularities or keyboarding misprints may be present documented in this encounter Plan of Treatment Upcoming Encounters Date Type Department Care Team (Late st Contact Info) Description 02/21/2024 9:45 EDT Office Visit [facility] Adult Primary Care - [address] [phone] Carrington Calderon MD [address] [place] [phone] 02/27/2024 8:30 EDT Telemedicine [facility] Sleep Program - [address] [phone] Dwight Colbert [address] [place] [phone] 02/29/2024 10:30 EDT Appointment [facility] Radiology Nuclear Medicine and PET - [address] [phone] 02/29/2024 14:30 EDT Appointment [facility] Radiology Nuclear Medicine and PET - [address] [address] 03/01/2024 8:00 EDT Appointment [facility] Radiology Nuclear Medicine and PET [address] [address] 03/01/2024 9:30 EDT Appointment [facility] Radiology Nuclear Medicine and PET - [address] [phone] documented as of this encounter Visit Diagnoses Diagnosis Ulcer of great toe, left, with necrosis of bone ([facility])- Primary Type 2 diabetes mellitus with diabetic polyneuropathy, with long-term current use of insulin ([facility]) documented in this encounter Discontinued [...]
--- OUTSIDE RECORDS SUMMARY | 2024-02-10 01:24 | XMS_ITS | Encounter Summary ---
Author Organization [facility] Address [address] [place] [address] Care Team Providers Care Apprentice Embalmer Name Role Phone Unavailable Primary Care Provider Unavailabl e Reason for Visit * Reason Comments Follow-up Encounter Details Date Type Department Care Team (Late st Contact Info) Description 04/16/2020 9:30 EST Telemedicine [facility] Infectious Disease - [address] [phone] Mushtaq Light, DO 111 [facility], Level 5 [place] [address] Osteomyelitis of great toe of [...] For patients, please refer to guidance in [place] on how to locate information. Generally this information will appear as a scanned documents saved in My Documents activity. documented in this encounter Plan of Treatment Upcoming Encounters Date Type Department Care Team (Late st Contact Info) Description 02/21/2024 9:45 EDT Office Visit [facility] Adult Primary Care - [address] [phone] Carrington Calderon MD 1 [facility] 1 [place] [phone] 02/27/2024 8:30 EDT Telemedicine [facility] Sleep Program - [address] 1 [place] [address] Colbert Dwight [address] [place] [address] 02/29/2024 10:30 EDT [facility] Radiology Nuclear Medicine and PET - [address] 200741 02/29/2024 14:30 EDT [facility]ointment [facility] Radiology Nuclear Medicine and PET - [address] [id number] 03/01/2024 8:00 EDT Appointment [facility] Radiology Nuclear Medicine and PET - [address] [phone] 03/01/2024 9:30 EDT Appointment [facility] Radiology Nuclear Medicine and PET - [address] [id number] documented as of this encounter Visit Diagnoses Diagnosis Osteomyelitis of great toe of left foot (HCC-CMS)- Primary documented in this encounter
--- OUTSIDE RECORDS SUMMARY | 2024-02-10 01:24 | XMS_ITS | Encounter Summary ---
Author Organization [facility] Address [address] [place] [address] Care Team Providers Care Resident Program Specialist Name Role Phone Carrington Calderon MD Primary Care Provi anders Abigail Díaz Unavailable Carmelo Hendrickson Unavailable Unavailable Abigail Díaz Unavailable [phone] Encounter Details Date Type Department Care Team (Late st Contact Info) Description 04/01/2020 Lab Requisition [facility] Pathology & Laboratory Medicine - [address] 808681 Mushtaq Light, DO 111 [facility], [facility] 5 [place] [phone] Encounter for other general examination Social History [...] [facility] Adult Primary Care - [address] 124541 Carrington Calderon MD 1 [facility] 1 [place] [phone] 02/27/2024 8:30 EDT Telemedicine [facility] Sleep Program - [address] [phone] Dwight Colbert [address] [place] [address] 02/29/2024 10:30 EDT Appointment [facility] Radiology Nuclear Medicine and PET [address] [id number] 02/29/2024 14:30 EDT Appointment [facility] Radiology Nuclear Medicine and PET [address] [id number] 03/01/2024 8:00 EDT Appointment [facility] Radiology Nuclear Medicine and PET [address] [id number] 03/01/2024 9:30 EDT Appointment [facility] Radiology Nuclear Medicine and PET [address] [id number] documented as of this encounter Procedures Procedure [...] 0 - 20 mm/hr 04/01/2020 20:32 EDT [facility] Comment:Note: Sample greater than 4 hours old (but less than 12 hours) when tested. If refrigerated, sample is stable when tested within 12 hours of collection. Blood VENOUS BLOOD / Unknown Non-Lab Collect / Unknown 04/01/2020 10:10 EDT 04/01/2020 18:42 EDT Mushtaq Light DO HEMATOLOGY & PF4 OR DERABLES [facility] [address] [place] [address] * (ABNORMAL) COMPLETE BLOOD COUNT AND DIFFERENTIAL (04/01/2020 10:10 EDT) WBC 10.42 4.00 - 12.40 K/cmm 04/01/2020 19:15 [facility] RBC 4.54 3.86 - 5.04 M/cmm 04/01/2020 19:15 [facility] Hemoglobin 13.7 11.6 - 15.2 gm/dL 04/01/2020 19:15 [facility] HCT 40.9 34.9 - 44.4 % 04/01/2020 19:15 [facility] MCV 90 81 - 98 fl 04/01/2020 19:15 [facility] MCH 30.2 26.7 - 33.3 pg 04/01/2020 19:15 [facility] MCHC 33.5 32.1 - 35.9 gm/dL 04/01/2020 19:15 [facility] RDW-CV 12.4 <14.7 % 04/01/2020 19:15 [facility] RDW-SD 40.9 <50.4 fl 04/01/2020 19:15 [facility] PLT 336 141 - 377 K/cmm 04/01/2020 19:15 [facility] MPV 10.5 9.5 - 12.7 fl 04/01/2020 19:15 [facility] % Neutrophils 48.0 % 04/01/2020 19:15 [facility] % Lymphocytes 38.5 % 04/01/2020 19:15 [facility] % Monocytes 8.1 % 04/01/2020 19:15 [facility] % Eosinophils 4.5 % 04/01/2020 19:15 [facility] % Basophils 0.7 % 04/01/2020 19:15 [facility] % Immature Grans 0.2 % 04/01/20 20 19:15 [facility] Absolute Neutrophils 5.01 2.20 - 8.85 K/cmm 04/01/2020 19:15 [facility] Absolute Lymphocytes 4.01(H) 1.09 - 3.30 K/cmm 04/01/2020 19:15 [facility] Absolute Monocytes 0.84(H) 0.10 - 0.80 K/cmm 04/01/2020 19:15 [facility] Absolute Eosinophils 0.47 0.03 - 0.61 K/cmm 04/01/2020 19:15 [facility] ABS Basophils 0.07 0.01 - 0.11 K/cmm 04/01/2020 19:15 [facility] Absolute Immature Grans 0.02 0.00 - 0.06 K/cmm 04/01/2020 19:15 [facility] Type of Differential: Auto 04/01/2020 19:15 [facility] Blood VENOUS BLOOD / Unknown Non-Lab Collect / Unknown 04/01/2020 10:10 EDT 04/01/2020 18:42 EDT Mushtaq Light DO PACKAGES & DNA PROB E ORDERABLES [facility] [address] [place] [address] * (ABNORMAL) CREATININE (04/01/2020 10:10 EDT) Creatinine 0.37(L) 0.52 - 1.04 mg/dL 04/01/2020 19:10 T [facility] eGFR 139 >60 mL/min/1.7 3m2 04/01/2020 19:10 [facility] Comment:eGFR calculated gil curtis CKD-EPI equation for non- Americans. Multiply eGFR by 1.16 for patients. Blood VENOUS BLOOD / Unknown Non-Lab Collect / Unknown 04/01/2020 10:10 EDT 04/01/2020 18:42 EDT Mushtaq Light DO CHEMISTRY & BLOOD G ORDERABLES Performing Organization Address City/[facility] Co de Phone Number [facility] [address] [place] [address] * C REACTIVE PROTEIN (04/01/2020 10:10 EDT) C-Reactive Protein <7.0 <10.0 mg/L 04/01/2020 19:10 EDT [facility] Blood VENOUS BLOOD / Unknown Non-Lab Collect / Unknown 04/01/2020 10:10 EDT 04/01/2020 18:42 EDT Mushtaq Light DO CHEMISTRY & BLOOD G ORDERABLES Performing Organization Address City/[facility] Co de Phone Number [facility] [address] [place] [address] documented in this encounter Visit Diagnoses Diagnosis Encounter for other general examination documented in this encounter Additional Health Concerns Infection Onset Date Last Indicated Resolved Time R/O COVID-19 08/04/2020 08/04/2020 08/04/2020 11:4 0 EST documented as of this encounter Care Teams Resident Program Specialist Relationship Specialty Start Date End Date Carrington Calderon MD 1 [facility] 1 [place] [phone] PCP - General Internal Medicine - Primary Care 12/09/20 Abigail Díaz Environmental Health Technologist 04/21/23 01/03/24 Carmelo Hendrickson Coordinator 12/01/23 Abigail Díaz Environmental Health Technologist 01/04/24 documented as of this encounter
--- OUTSIDE RECORDS SUMMARY | 2024-02-10 01:24 | XMS_ITS | Encounter Summary ---
Author Organization [facility] Address [address] [place] [address] Care Team Providers Care Industrial Safety Engineer Name Role Phone Carrington Calderon MD Primary Care Provi anders Abigail Díaz Unavailable [phone] Carmelo Hendrickson Unavailable Unavailable Abigail Díaz Unavailable Encounter Details Date Type Department Care Team (Late st Contact Info) Description 03/25/2020 Lab Requisition [facility] Pathology & Laboratory Medicine - [address] [phone] Mushtaq Light, DO 111 [facility], [facility] 5 [place] [phone] Encounter for other general examination Social History [...] Visit [facility] Adult Primary Care - [address] 050061 Carrington Calderon MD 1 [facility] 1 [place] [phone] 02/27/2024 8:30 EDT Telemedicine [facility] Sleep Program - [address] [phone] Dwight Colbert [address] [place] [address] 02/29/2024 10:30 EDT Appointment [facility] Radiology Nuclear Medicine and PET [address] [id number] 02/29/2024 14:30 EDT Appointment [facility] Radiology Nuclear Medicine and PET [address] [phone] 03/01/2024 8:00 EDT Appointment [facility] Radiology Nuclear Medicine and PET [address] [id number] 03/01/2024 9:30 EDT Appointment [facility] Radiology Nuclear Medicine and PET [address] [id number] documented as of this encounter Procedures Procedure [...] 0 - 20 mm/hr 03/25/2020 20:19 EDT [facility] Comment:Note: Sample greater than 4 hours old (but less than 12 hours) when tested. If refrigerated, sample is stable when tested within 12 hours of collection. Blood VENOUS BLOOD / Unknown 03/25/2020 13:25 EDT 03/25/2020 19:10 EDT Mushtaq Light DO HEMATOLOGY & PF4 OR DERABLES [facility] [address] [place] [address] * (ABNORMAL) COMPLETE BLOOD COUNT AND DIFFERENTIAL (03/25/2020 13:25 EDT) WBC 13.46(H) 4.00 - 12.40 K/cmm 03/25/2020 19:49 [facility] RBC 4.59 3.86 - 5.04 M/cmm 03/25/2020 19:49 [facility] Hemoglobin 13.8 11.6 - 15.2 gm/dL 03/25/2020 19:49 [facility] HCT 40.3 34.9 - 44.4 % 03/25/2020 19:49 [facility] MCV 88 81 - 98 fl 03/25/2020 19:49 [facility] MCH 30.1 26.7 - 33.3 pg 03/25/2020 19:49 [facility] MCHC 34.2 32.1 - 35.9 gm/dL 03/25/2020 19:49 [facility] RDW-CV 12.4 <14.7 % 03/25/2020 19:49 [facility] RDW-SD 40.0 <50.4 fl 03/25/2020 19:49 [facility] PLT 357 141 - 377 K/cmm 03/25/2020 19:49 [facility] MPV 10.1 9.5 - 12.7 fl 03/25/2020 19:49 [facility] % Neutrophils 52.3 % 03/25/2020 19:49 [facility] % Lymphocytes 36.8 % 03/25/2020 19:49 [facility] % Monocytes 7.3 % 03/25/2020 19:49 [facility] % Eosinophils 2.9 % 03/25/2020 19:49 [facility] % Basophils 0.5 % 03/25/2020 19:49 [facility] % Immature Grans 0.2 % 03/25/20 19:49 EDT [facility] Absolute Neutrophils 7.04 2.20 - 8.85 K/cmm 03/25/2020 19:49 [facility] Absolute Lymphocytes 4.95(H) 1.09 - 3.30 K/cmm 03/25/2020 19:49 [facility] Absolute Monocytes 0.98(H) 0.10 - 0.80 K/cmm 03/25/2020 19:49 [facility] Absolute Eosinophils 0.39 0.03 - 0.61 K/cmm 03/25/2020 19:49 [facility] ABS Basophils 0.07 0.01 - 0.11 K/cmm 03/25/2020 19:49 [facility] Absolute Immature Grans 0.03 0.00 - 0.06 K/cmm 03/25/2020 19:49 [facility] Type of Differential: Auto 03/25/2020 19:49 [facility] Blood VENOUS BLOOD / Unknown 03/25/2020 13:25 EDT 03/25/2020 19:10 EDT Mushtaq Light DO PACKAGES & DNA PROB E ORDERABLES [facility] [address] [place] [address] * (ABNORMAL) CREATININE (03/25/2020 13:25 EDT) Creatinine 0.44(L) 0.52 - 1.04 mg/dL 03/25/2020 19:46 EDT [facility] eGFR 131 >60 mL/min/1.7 3m2 03/25/2020 19:46 T [facility] Comment:eGFR calculated gil curtis CKD-EPI equation for non- Americans. Multiply eGFR by 1.16 for patients. Blood VENOUS BLOOD / Unknown 03/25/2020 13:25 EDT 03/25/2020 19:10 EDT Mushtaq J Kuldeep DO CHEMISTRY & BLOOD G ORDERABLES Performing Organization Address City/[facility]/ZIP Co de Phone Number [facility] [address] [place] [address] * C REACTIVE PROTEIN (03/25/2020 13:25 EDT) C-Reactive Protein <7.0 <10.0 mg/L 03/25/2020 19:46 EDT [facility] Blood VENOUS BLOOD / Unknown 03/25/2020 13:25 EDT 03/25/2020 19:10 EDT Mushtaq [place] CHEMISTRY & BLOOD G ORDERABLES Performing Organization Address City/[facility] Co de Phone Number [facility] [address] [place] [address] documented in this encounter Visit Diagnoses Diagnosis Encounter for other general examination documented in this encounter Additional Health Concerns Infection Onset Date Last Indicated Resolved Time R/O COVID-19 08/04/2020 08/04/2020 08/04/2020 11:4 0 EST documented as of this encounter Care Teams Industrial Safety Engineer Relationship Specialty Start Date End Date Carrington Calderon MD 1 [facility] 1 [place] [phone] PCP - General Internal Medicine - Primary Care 12/09/20 Abigail Díaz Esthetics Instructor 04/21/23 01/03/24 Carmelo Hendrickson Coordinator 12/01/23 Abigail Díaz Esthetics Instructor 01/04/24 documented as of this encounter
--- OUTSIDE RECORDS SUMMARY | 2024-02-10 01:24 | XMS_ITS | Encounter Summary ---
Author Organization [facility] Address [address] [place] [address] Care Team Providers Care Hospice Educator Name Role Phone Unavailable Primary Care Provider Unavailabl e Reason for Visit * Reason Comments Telemedicine Video Visit Encounter Details Date Type Department Care Team (Late st Contact Info) Description 03/27/2020 13:30 EDT Telemedicine [facility] Infectious Disease - [address] [phone] Tonja Plascencia NP 111 [facility], Level 5 [place] [address] [...] this encounter Progress Notes * Tonja Plascencia, MOBILE APPLICATION ARCHITECT - 03/27/2020 1330 EDT Infectious Disease Clinic [...] encounter visit: Tonja Plascencia ?? Patient location: [facility] [place]town, State: [place] Estimated driving distance from [place]: 25 miles. Demographics HPI: Cristy Luo [...] [facility] - [address] [phone] Carrington Calderon MD [address] [phone] 02/27/2024 8:30 EDT Telemedicine [facility] Sleep Program - [address] 508361 Dwight Colbert [address] [place] [phone] 02/29/2024 10:30 EDT Appointment [facility] Radiology Nuclear Medicine and PET - [address] [phone] 02/29/2024 14:30 EDT Appointment [facility] Radiology Nuclear Medicine and PET - [address] [id number] 03/01/2024 8:00 EDT Appointment [facility] Radiology Nuclear Medicine and PET - [address] [phone] 03/01/2024 9:30 EDT Appointment [facility] Radiology Nuclear Medicine and PET - [address] [address] documented as of this encounter Visit Diagnoses Diagnosis Osteomyelitis of great toe of left foot (HCC-CMS)- Primary documented in this encounter
--- OUTSIDE RECORDS SUMMARY | 2024-02-10 01:24 | XMS_ITS | Encounter Summary ---
Author Organization [facility] Address [address] [place] [address] Care Team Providers Care Veneer Matcher Name Role Phone Unavailable Primary Care Provider Unavailabl e Reason for Visit * Reason Onset Date Comments Home Health 04/01/2020 Encounter Details Date Type Department Care Team (Late st Contact Info) Description 04/01/2020 Telephone [facility] Infectious Disease - [address] [phone] Mushtaq Light, DO 111 [facility], Level 5 [place] [address] Home Health Social History Tobacco [...] Telephone Encounter - Smita Green - 04/01/2020 2214 EDT Kylah from [facility] states that she did picc dressing change and clave, but was not able to get the extension tubing off. Would like a call back with plan. [phone]. documented in this encounter Plan of Treatment Upcoming Encounters Date Type Department Care Team (Late st Contact Info) Description 02/21/2024 9:45 EDT Office Visit [facility] Adult Primary Care - [place] 1 [place], [place] [phone] Carrington Calderon MD 1 [facility] Level 1 [place] [address] 02/27/2024 8:30 EDT Telemedicine [facility] Sleep Program - [address] [place] [address] [place] [address] Dwight Colbert [address] [place] [address] 02/29/2024 10:30 EDT Appointment [facility] Radiology Nuclear Medicine and PET - [address] [id number] 02/29/2024 14:30 EDT Appointment [facility] Radiology Nuclear Medicine and PET - [address] [id number] 03/01/2024 8:00 EDT Appointment [facility] Radiology Nuclear Medicine and PET - [address] [id number] 03/01/2024 9:30 EDT Appointment [facility] Radiology Nuclear Medicine and PET - [address] [phone] documented as of this encounter Visit Diagnoses Not on filedocumented in this encounter
--- OUTSIDE RECORDS SUMMARY | 2024-02-10 01:24 | XMS_ITS | Encounter Summary ---
Author Organization [facility] Address [address] [place] [address] Care Team Providers Care Staying Machine Operator Name Role Phone Unavailable Primary Care Provider Unavailabl e Reason for Visit * Reason Comments Foot Problem * Follow Up (Routine/Next Available) - Receiving Office to Obtain Authorization Specialty Diagnoses / Procedures Referred By Kit goode Referred To Contact Podiatry Diagnoses Diabetic foot ulcer ([facility]) Carrington Mari MD [address] [place] [address] [facility] Podiatry [address] [place] [address] Referral ID Status Reason Start Date Expiration Date Visits Requested Visits Authorized [id number] Receiving Office to Obtain Authorization Specialty Services Required 0 1 1 Encounter Details Date Type Department Care Team (Late st Contact Info) Description 05/14/2020 14:30 EST Office Visit [facility] Foot & Ankle Program - [address] [place] [address] Elza Navarro DPM [address] [place] [phone] Ulcer of great toe, left, with necrosis of bone ([facility]) (Primary Dx); Type 2 diabetes mellitus with diabetic polyneuropathy, with long-term current use of insulin ([facility]) Social History Tobacco Use Types [...] Notes * Elza Navarro, DPM - 05/14/2020 7120 EST Images from the original note were [...] shoe andinsole. She has been taking the myirmuoudem-Sjtshewld-frtdeth any issues. She has been changing thedressing daily. Overall she is feeling well today. She denies pain in the toe. She denies nausea, vomiting, fever, chills. Patient Active Problem List Diagnosis Date Noted ??? 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 ([facility]) 05/03/2020 Priority: Medium ??? Osteomyelitis of great toe of left foot ([facility]) 03/12/2020 Priority: Medium ??? Diabetic foot ulcer associated with diabetes mellitus due to underlying condition ([facility]) 03/07/2020 Priority: Medium ??? Diabetic foot infection ([facility]) 03/06/2020 Priority: Medium ??? Diabetic foot ulcer ([facility]) 03/06/2020 Priority: Medium ??? Cellulitis of great toe of left foot 11/26/2019 Priority: Medium ??? Chronic midline low back pain without sciatica 11/26/2019 Priority: Medium ??? Chronic left ear pain 09/04/2015 Priority: Medium ??? Encounter for sterilization 11/20/2019 ??? Family history of rheumatoid arthritis 09/04/2015 ??? Type 2 diabetes mellitus ([facility]) 09/03/2015 ??? Anxiety and depression 05/12/2010 ??? Migraine with aura and without status migrainosus, not intractable Past Medical History: Diagnosis Date ??? Anxiety ??? Arthritis 12/05/19- Spine- told years ago ??? Diabetes ([facility]) A1c 10.3 on 11/28/2019 ??? History [...] toe, left, with necrosis of bone ([facility]) 2. Type 2 diabetes mellitus with diabetic polyneuropathy, with long-term current use of insulin ([facility]) No orders of the defined [...] speech recognition software or keyboard sap data analyst techniques. Minor irregularities or keyboarding misprints may be present documented in this encounter Plan of Treatment Upcoming Encounters Date Type Department Care Team (Late st Contact Info) Description 02/21/2024 9:45 EDT Office Visit [facility] Adult Primary Care - [address] [phone] Carrington Calderon MD 1 [facility] 1 [place] [address] 02/27/2024 8:30 EDT Telemedicine [facility] Sleep Program - [address] [phone] Dwight Colbert [address] [place] [address] [phone] 02/29/2024 10:30 EDT Appointment [facility] Radiology Nuclear Medicine and PET [address] [id number] 02/29/2024 14:30 EDT Appointment [facility] Radiology Nuclear Medicine and PET - [address] [id number] 03/01/2024 8:00 EDT Appointment [facility] Radiology Nuclear Medicine and PET [address] [id number] 03/01/2024 9:30 EDT Appointment [facility] Radiology Nuclear Medicine and PET [address] [phone] documented as of this encounter Visit Diagnoses Diagnosis Ulcer of great toe, left, with necrosis of bone (HCC-CMS)- Primary Type 2 diabetes mellitus with diabetic polyneuropathy, with long-term current use of insulin ([facility]) documented in this encounter
--- OUTSIDE RECORDS SUMMARY | 2024-02-10 01:24 | XMS_ITS | Encounter Summary ---
Author Organization [facility] Address [address] [place] [address] Care Team Providers Care Supplier Diversity Director Name Role Phone Unavailable Primary Care Provider Unavailabl e Reason for Visit * Reason Comments Diabetes Encounter Details Date Type Department Care Team (Latest Contact Info) Description 06/05/2020 14:00 EST Telemedicine [facility] Endocrinology - [facility] [address] [place], [place] [phone] Sara Zafar NP 62 [facility] [address] [place] [phone] Type 2 diabetes mellitus with left diabetic [...] APRN - 06/05/2020 1400 EST Subjective: [facility] diabetes Center F/U Note TELEMEDICINE VIDEO [...] Dr. Srinivasan in 2009. 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 Recurrent loss is attributed to to poorly controlled type 2 diabetes in conjunction with tobacco dependence. She saw ABRASIVE WORKER on 11/03/2018, and was advised to get [...] siblings, knows about 2, no DM. 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 Previous [...] and send BS. Freestyle Vignesh CGM ordered. [facility]. Novolog to 8-10 units 15 [...] [facility] Adult Primary Care - [address] [address] Carrington Calderon MD 1 [facility] 1 [place] [address] 02/27/2024 8:30 EDT Telemedicine [facility] Sleep Program - [address] [address] Dwight Colbert [address] [place] [address] 02/29/2024 10:30 EDT Appointment [facility] Radiology Nuclear Medicine and PET - [address] [address] 02/29/2024 14:30 EDT Appointment [facility] Radiology Nuclear Medicine and PET [address] [id number] 03/01/2024 8:00 EDT Appointment [facility] Radiology Nuclear Medicine and PET [address] 737991 03/01/2024 9:30 EDT Appointment [facility] Radiology Nuclear Medicine and PET [address] [address] documented as of this encounter Visit Diagnoses Diagnosis 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 ([facility]-CMS)- Primary Type II or unspecified type diabetes mellitus with other specified manifestations, not stated as uncontrolled Anxiety and depression Dysthymic disorder documented in this encounter Discontinued Medications Medication Sig Discontinue Reason Start Date End Da te gabapentin (NEURONTIN) 100 mg capsule Take 100 mg by mouth 3 times daily. 06/05/2020 documented as of this encounter
--- OUTSIDE RECORDS SUMMARY | 2024-02-10 01:24 | XMS_ITS | Encounter Summary ---
Author Organization [facility] Address [address] [place] [address] Care Team Providers Care Cold Strip Feeder Name Role Phone Unavailable Primary Care Provider Unavailabl e Reason for Visit * Reason Comments Telemedicine Video Visit Encounter Details Date Type Department Care Team (Late st Contact Info) Description 06/04/2020 12:00 EST Telemedicine [facility] Infectious Disease - [address] 129271 Mushtaq Light, DO [address] [facility], Level [address] [place] [address] Osteomyelitis of great toe of [...] 12/05/19- Spine- told years ago ??? Diabetes ([facility]) ? A1c 10.3 on 11/28/2019 ??? [...] BODIES: None ?? 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 Attends moravian service: Not on file ? Active member [...] few strep anginosus, moderate prevotella 05/03 covid-19 MEDICAL TRANSPORT SPECIALIST swab: negative 05/04 blood cultures:06/09 bottles growing [...] [facility] Adult Primary Care - [address] [phone] Carrington Calderon MD [address] [phone] 02/27/2024 8:30 EDT Telemedicine [facility] Sleep Program - [address] 798651 Dwight Colbert [address] [place] [address] 237861 02/29/2024 10:30 EDT Appointment [facility] Radiology Nuclear Medicine and PET - [address] [id number] 02/29/2024 14:30 EDT Appointment [facility] Radiology Nuclear Medicine and PET - [address] [id number] 03/01/2024 8:00 EDT Appointment [facility] Radiology Nuclear Medicine and PET [address] [phone] 03/01/2024 9:30 EDT Appointment [facility] Radiology Nuclear Medicine and PET [address] [phone] documented as of this encounter Visit Diagnoses Diagnosis Osteomyelitis of great toe of left foot (HCC-CMS)- Primary documented in this encounter
--- OUTSIDE RECORDS SUMMARY | 2024-02-10 01:24 | XMS_ITS | Encounter Summary ---
Author Organization [facility] Address [address] [place] [address] Care Team Providers Care Field Identification Specialist Name Role Phone Unavailable Primary Care Provider Unavailabl e Reason for Visit * Reason Onset Date Comments Labs Only 06/05/2020 covid pre op scr eening Encounter Details Date Type Department Care Team (Late st Contact Info) Description 06/05/2020 Orders Only [facility] Foot & Ankle Program - [address] [address] Elza Navarro DPM [address] [place] [address] Osteomyelitis of left foot, unspecified type ([facility]) (Primary Dx) Social History Tobacco Use Types [...] Visit [facility] Adult Primary Care - [address] 985201 Carrington Calderon MD 1 [facility] 1 [place] [phone] 02/27/2024 8:30 EDT Telemedicine [facility] Sleep Program - [address] [address] Dwight Colbert [address] [place] [address] [phone] 02/29/2024 10:30 EDT Appointment [facility] Radiology Nuclear Medicine and PET [address] [id number] 02/29/2024 14:30 EDT Appointment [facility] Radiology Nuclear Medicine and PET [address] [phone] 03/01/2024 8:00 EDT Appointment [facility] Radiology Nuclear Medicine and PET [address] [phone] 03/01/2024 9:30 EDT Appointment [facility] Radiology Nuclear Medicine and PET [address] [phone] documented as of this encounter Results * COVID-19 TESTING (06/09/2020 9:28 EST) COVID-19 rt-PCR Result Negative Negative 06/09/2020 16:34 [facility] Comment: This test has [...] history, and epidemiological information. Performed on the eLifestyles instrument Performing Lab Post [facility] Lab 06/09/2020 16:34 [facility] Swab ENTIRE NASOPHARYNX / Unknown Swab / Unknown 06/09/2020 9:28 EST 06/09/2020 9:28 EST Elza Navarro DPM MICROBIOLOGY - GENER AL ORDERABLES [facility] [address] [place] [address] documented in this encounter Visit Diagnoses Diagnosis Osteomyelitis of left foot, unspecified type ([facility])- Primary documented in this encounter
--- OUTSIDE RECORDS SUMMARY | 2024-02-10 01:24 | XMS_ITS | Encounter Summary ---
Author Organization [facility] Address [address] [place] [address] Care Team Providers Care Telegraph Repeater Technician Name Role Phone Unavailable Primary Care [...] [facility] - [address] [phone] Carrington Calderon MD [address] [phone] 02/27/2024 8:30 EDT Telemedicine [facility] Sleep Program - [address] [address] Dwight Colbert [address] [place] [address] 809101 02/29/2024 10:30 EDT Appointment [facility] Radiology Nuclear Medicine and PET - [address] 69[address] 02/29/2024 14:30 EDT Appointment [facility] Radiology Nuclear Medicine and PET - [address] 457041 03/01/2024 8:00 EDT Appointment [facility] Radiology Nuclear Medicine and PET - [address] 425961 03/01/2024 9:30 EDT Appointment [facility] Radiology Nuclear Medicine and PET - [address] [address] documented as of this encounter Visit Diagnoses Not on filedocumented in this encounter
--- OUTSIDE RECORDS SUMMARY | 2024-02-10 01:24 | XMS_ITS | Encounter Summary ---
Author Organization [facility] Address [address] [place] [address] Care Team Providers Care Park Activities Coordinator Name Role Phone Unavailable Primary Care Provider Unavailabl e Reason for Visit * Reason Comments Follow-up Encounter Details Date Type Department Care Team (Latest Contact Info) Description 04/07/2020 10:00 EST Office Visit [facility] [place] [address] Nurse, Id, RN Osteomyelitis of great toe [...] [facility] Adult Primary Care - [address] [phone] Carrington Calderon MD 1 [facility] 1 [place] [address] 02/27/2024 8:30 EDT Telemedicine [facility] Sleep Program - [address] [place] 1 [place] [address] Dwight Colbert [address] [place] [address] 02/29/2024 10:30 EDT [facility]ointment [facility] Radiology Nuclear Medicine and PET - [address] 616691 02/29/2024 14:30 EDT Appointment [facility] Radiology Nuclear Medicine and PET - [address] [id number] 03/01/2024 8:00 EDT Appointment [facility] Radiology Nuclear Medicine and PET - [address] 414881 03/01/2024 9:30 EDT Appointment [facility] Radiology Nuclear Medicine and PET - [address] 154391 documented as of this encounter Visit Diagnoses Diagnosis Osteomyelitis of great toe of left foot (HCC-CMS)- Primary documented in this encounter
--- OUTSIDE RECORDS SUMMARY | 2024-02-10 01:24 | XMS_ITS | Encounter Summary ---
Author Organization [facility] Address [address] [place] [address] Care Team Providers Care Learning Support Teacher Name Role Phone Unavailable Primary Care [...] [facility] Adult Primary Care - [address] 609301 Carrington Calderon MD [address] [phone] 02/27/2024 8:30 EDT Telemedicine [facility] Sleep Program - [address] 322991 Dwight Colbert [address] [place] [address] [phone] 02/29/2024 10:30 EDT Appointment [facility] Radiology Nuclear Medicine and PET - [address] [phone] 02/29/2024 14:30 EDT Appointment [facility] Radiology Nuclear Medicine and PET - [address] [phone] 03/01/2024 8:00 EDT Appointment [facility] Radiology Nuclear Medicine and PET - [address] [address] 03/01/2024 9:30 EDT Appointment [facility] Radiology Nuclear Medicine and PET - [address] [phone] documented as of this encounter Visit Diagnoses Not on filedocumented in this encounter
--- OUTSIDE RECORDS SUMMARY | 2024-02-10 01:24 | XMS_ITS | Encounter Summary ---
Author Organization [facility] Address [address] [place] [address] Care Team Providers Care Cloth Roll Winder Name Role Phone Unavailable Primary Care Provider Unavailabl e Reason for Visit * Reason Onset Date Comments Home Health 04/01/2020 Telemedicine Video Visit 04/01/2020 Encounter Details Date Type Department Care Team (Late st Contact Info) Description 04/01/2020 Telephone [facility] Adult Primary Care [address] 133071 Tonja Alejandro PA-C [address] [place] [address] [place] [phone] Home Health; Telemedicine Video Visit Social [...] Zoom appt ID: [id number] pw: [id number] * Telephone Encounter - Jesi Lua RN [...] video visit. * Telephone Encounter - Karen Trujlilo - 04/01/2020 1635 EDT Kylah is calling from [facility] to state patient is frustrated because [...] [facility] Adult Primary Care - [address] 523131 Carrington Calderon MD 1 [facility] Level 1 [place] [phone] 02/27/2024 8:30 EDT Telemedicine [facility] Sleep Program - [place] 1 [place] [address] Dwight Colbert [address] [place] [address] 02/29/2024 10:30 EDT Appointment [facility] Radiology Nuclear Medicine and PET - [address] [address] 02/29/2024 14:30 EDT [facility]ointment [facility] Radiology Nuclear Medicine and PET - [address] 384581 03/01/2024 8:00 EDT Appointment [facility] Radiology Nuclear Medicine and PET - [address] [phone] 03/01/2024 9:30 EDT Appointment [facility] Radiology Nuclear Medicine and PET - [address] 564431 documented as of this encounter Visit Diagnoses Not on filedocumented in this encounter
--- OUTSIDE RECORDS SUMMARY | 2024-02-10 01:24 | XMS_ITS | Encounter Summary ---
Author Organization [facility] Address [address] [place] [address] Care Team Providers Care Marketing Traffic Manager Name Role Phone Unavailable Primary Care Provider Unavailabl e Encounter Details Date Type Department Care Team ([facility] Contact Info) Description 05/12/2020 Documentation Visit [facility] Home [facility]fusion Pharmacy - S [address] [place], [place] [address] Marcel Bustamante Social History Tobacco Use Types [...] [facility] - [address] 916051 Carrington Calderon MD 1 [facility] 1 [place] [address] 02/27/2024 8:30 EDT Telemedicine [facility] Sleep Program - [address] 639271 Dwight Colbetr [address] [place] [address] 1057[address] 02/29/2024 10:30 EDT Appointment [facility] Radiology Nuclear Medicine and PET [address] 364291 02/29/2024 14:30 EDT Appointment [facility] Radiology Nuclear Medicine and PET [address] 910111 03/01/2024 8:00 EDT Appointment [facility] Radiology Nuclear Medicine and PET [address] 543201 03/01/2024 9:30 EDT Appointment [facility] Radiology Nuclear Medicine and PET [address] [phone] documented as of this encounter Visit Diagnoses [...]
--- OUTSIDE RECORDS SUMMARY | 2024-02-10 01:24 | XMS_ITS | Encounter Summary ---
Author Organization [facility] Address [address] [place] [address] Care Team Providers Care Antisqueak Chalker Name Role Phone Unavailable Primary Care Provider Unavailabl e Reason for Visit * Reason Onset Date Comments Abnormal Lab 05/05/2020 Encounter Details Date Type Department Care Team ([facility] st Contact Info) Description 05/05/2020 Telephone [facility] Medicine [address] [address] Shari Grider, DO [address] [place] [address] Abnormal Lab Social History Tobacco Use Types [...] Encounter - Shari Grider DO - 05/05/2020 6844 EST Lab called with critical result - blood culture positive for gram positive bacilli at 37 hours in 1/2 aerobic bottles. Case discussed with Dr. You who notes patient was well-appearing when she left AMA last night. Will check in with her tomorrow AM and let her outpatient care team know. Shari Grider DO 05/05/20 22:20 Family Medicine PGY-3 Pager #[phone] documented in this encounter Plan of Treatment Upcoming Encounters Date Type Department Care Team (Late st Contact Info) Description 02/21/2024 9:45 EDT Office Visit [facility] Adult Primary Care - [address] [address] Carrington Calderon MD 1 [facility] 1 [place] [address] 02/27/2024 8:30 EDT Telemedicine [facility] Sleep Program - [address] [address] Dwight Colbert [address] [place] [address] [phone] 02/29/2024 10:30 EDT Appointment [facility] Radiology Nuclear Medicine and PET [address] 853861 02/29/2024 14:30 EDT Appointment [facility] Radiology Nuclear Medicine and PET [address] 134111 03/01/2024 8:00 EDT Appointment edical [place] Radiology Nuclear Medicine and PET - [address] 074961 03/01/2024 9:30 EDT Appointment [facility] Radiology Nuclear Medicine and PET [address] 378671 documented as of this encounter Visit Diagnoses Not on filedocumented in this encounter
--- OUTSIDE RECORDS SUMMARY | 2024-02-10 01:25 | XMS_ITS | Encounter Summary ---
Author Organization [facility] Address [address] [place] [address] Care Team Providers Care Appliance Repairer Name Role Phone Unavailable Primary Care Provider Unavailabl e Encounter Details Date Type Department Care Team ([facility] Contact Info) Description 03/17/2020 Documentation Visit [facility] Home Infusion Pharmacy - S [address] [place], [place] [address] Marcel Bustamante Social History Tobacco Use Types [...] MORALES RN 03/17/2020 14:59 * [place] - 03/17/2020 1217 EDT Patient: Cristy Luo [...] [facility] Adult Primary Care - [address] [phone] Carrington Calderon MD [address] [phone] 02/27/2024 8:30 EDT Telemedicine [facility] Sleep Program - [address] [phone] Dwight Colbert [address] [place] [address] [phone] 02/29/2024 10:30 EDT Appointment [facility] Radiology Nuclear Medicine and PET - [address] [address] 02/29/2024 14:30 EDT Appointment [facility] Radiology Nuclear Medicine and PET - [address] 900161 03/01/2024 8:00 EDT Appointment [facility] Radiology Nuclear Medicine and PET - [address] [phone] 03/01/2024 9:30 EDT [facility] Rad[facility] Nuclear Medicine and PET [address] 014141 documented as of this encounter Visit Diagnoses Not on filedocumented in this encounter
--- OUTSIDE RECORDS SUMMARY | 2024-02-10 01:25 | XMS_ITS | Encounter Summary ---
Author Organization [facility] Address [address] [place] [address] Care Team Providers Care Statistical Methods Professor Name Role Phone Unavailable Primary Care Provider Unavailabl e Reason for Visit * Reason Onset Date Comments Medications Refill 03/21/2020 Encounter Details Date Type Department Care Team (Late st Contact Info) Description 03/21/2020 Refill [facility] Endocrinology - [facility] [address] [place], [place] [phone] Sara Zafar NP 62 [facility] [address] [place] [address] Medications Refill Social History Tobacco [...] [facility] Adult Primary Care - [address] [address] Carrington Calderon MD 1 [facility] 1 [place] [address] 02/27/2024 8:30 EDT Telemedicine [facility] Sleep Program - [address] [address] Dwight Colbert [address] [place] [address] 02/29/2024 10:30 EDT Appointment [facility] Radiology Nuclear Medicine and PET [address] 257761 02/29/2024 14:30 EDT Appointment [facility] Radiology Nuclear Medicine and PET [address] 618951 03/01/2024 8:00 EDT Appointment [facility] Radiology Nuclear Medicine and PET [address] 942781 03/01/2024 9:30 EDT Appointment [facility] Radiology Nuclear Medicine and PET [address] [address] documented as of this encounter Visit Diagnoses [...]
--- OUTSIDE RECORDS SUMMARY | 2024-02-10 01:25 | XMS_ITS | Encounter Summary ---
Author Organization [facility] Address [address] [place] [address] Care Team Providers Care Advertising Editor Name Role Phone Unavailable Primary Care Provider Unavailabl e Encounter Details Date Type Department Care Team ([facility] Contact Info) Description 03/11/2020 Documentation Visit [facility] Home Infusion Pharmacy - S [address] [place], [place] [address] Marcel Bustamante Social History Tobacco Use Types [...] home infusion therapy: No Language other than Uzbek: No Vision, speech, hearing, or cognitive impairment: [...] Home Health Agency Contact Info: DANAY Reardon ([phone] or [phone]) Laboratory Contacts: [facility] [phone] Referral Source: Nurse/Enterprise Records Analyst Plan: Initial teach completed with Stella for [...] MARCEL BUSTAMANTE 03/11/2020 15:07 * Mily Ovalle, [facility] ED - 03/11/2020 2975 EDT Patient: Cristy Luo is a 34 [...] nurse assessment. Plan: Begin home infusion therapy. FLAG FOOTBALL COACH nurse to see patient for administration of first home dose. Mixed and sent enough drug and supplies through 03/19/20. Delivery to [facility] for patient to corn picker at discharge. Anticipated end date 04/20/20. Follow up with patient via telephone within first week of therapy. Monitor labs per care plan weekly. MILY OVALLE RPH 03/17/2020 15:00 documented in this encounter Plan of Treatment Upcoming Encounters Date Type Department Care Team (Late st Contact Info) Description 02/21/2024 9:45 EDT Office Visit [facility] Adult Primary Care - [address] 599851 Carrington Calderon MD [address] [phone] 02/27/2024 8:30 EDT Telemedicine [facility] Sleep Program - [address] 191811 Dwight Colbert [address] [place] [address] [phone] 02/29/2024 10:30 EDT Appointment [facility] Radiology Nuclear Medicine and PET [address] [phone] 02/29/2024 14:30 EDT Appointment [facility] Radiology Nuclear Medicine and PET [address] [id number] 03/01/2024 8:00 EDT Appointment [facility] Radiology Nuclear Medicine and PET - [address] [phone] 03/01/2024 9:30 EDT Appointment [facility] Radiology Nuclear Medicine and PET [address] [phone] documented as of this encounter Visit Diagnoses Not on filedocumented in this encounter
--- OUTSIDE RECORDS SUMMARY | 2024-02-10 01:25 | XMS_ITS | Encounter Summary ---
Author Organization [facility] Address [address] [place] [address] Care Team Providers Care Artificial Leather Calender Operator Name Role Phone Carrington Calderon MD Primary Care Provi anders Abigail Díaz Unavailable [phone] Carmelo Hendrickson Unavailable Unavailable Abigail Díaz Unavailable [phone] Encounter Details Date Type Department Care Team (Late st Contact Info) Description 03/18/2020 Lab Requisition [facility] Pathology & Laboratory Medicine - [address] 313591 Mushtaq Light, DO 111 [facility] 5 [place] [phone] Encounter for other general examination Social History [facility] - [address] [phone] Carrington Calderon MD 1 [facility] 1 [place] [phone] 02/27/2024 8:30 EDT Telemedicine [facility] Sleep Program - [address] [phone] Dwight Colbert [address] [place] [address] 02/29/2024 10:30 EDT Appointment [facility] Radiology Nuclear Medicine and PET [address] [phone] 02/29/2024 14:30 EDT Appointment [facility] Radiology Nuclear Medicine and PET [address] [phone] 03/01/2024 8:00 EDT Appointment [facility] Radiology Nuclear Medicine and PET [address] [phone] 03/01/2024 9:30 EDT Appointment [facility] Radiology Nuclear Medicine and PET [address] [phone] documented as of this encounter Procedures Procedure [...] 0 - 20 mm/hr 03/18/2020 18:51 EDT [facility] Comment:Note: Sample greater than 4 hours old (but less than 12 hours) when tested. If refrigerated, sample is stable when tested within 12 hours of collection. Blood VENOUS BLOOD / Unknown Non-Lab Collect / Unknown 03/18/2020 10:35 EDT 03/18/2020 16:41 EDT Mushtaq Light DO HEMATOLOGY & PF4 OR DERABLES [facility] [address] [place] [address] * (ABNORMAL) COMPLETE BLOOD COUNT AND DIFFERENTIAL (03/18/2020 10:35 EDT) WBC 11.64 4.00 - 12.40 K/cmm 03/18/2020 17:17 [facility] RBC 4.54 3.86 - 5.04 M/cmm 03/18/2020 17:17 [facility] Hemoglobin 13.9 11.6 - 15.2 gm/dL 03/18/2020 17:17 [facility] HCT 40.9 34.9 - 44.4 % 03/18/2020 17:17 [facility] MCV 90 81 - 98 fl 03/18/2020 17:17 [facility] MCH 30.6 26.7 - 33.3 pg 03/18/2020 17:17 [facility] MCHC 34.0 32.1 - 35.9 gm/dL 03/18/2020 17:17 [facility] RDW-CV 12.4 <14.7 % 03/18/2020 17:17 [facility] RDW-SD 40.8 <50.4 fl 03/18/2020 17:17 [facility] PLT 462(H) 141 - 377 K/cmm 03/18/2020 17:17 [facility] MPV 10.5 9.5 - 12.7 fl 03/18/2020 17:17 [facility] % Neutrophils 55.0 % 03/18/2020 17:17 [facility] % Lymphocytes 33.0 % 03/18/2020 17:17 [facility] % Monocytes 7.4 % 03/18/2020 17:17 [facility] % Eosinophils 3.4 % 03/18/2020 17:17 [facility] % Basophils 0.7 % 03/18/2020 17:17 [facility] % Immature Grans 0.5 % 03/18/20 20 17:17 [facility] Absolute Neutrophils 6.41 2.20 - 8.85 K/cmm 03/18/2020 17:17 [facility] Absolute Lymphocytes 3.84(H) 1.09 - 3.30 K/cmm 03/18/2020 17:17 [facility] Absolute Monocytes 0.86(H) 0.10 - 0.80 K/cmm 03/18/2020 17:17 [facility] Absolute Eosinophils 0.39 0.03 - 0.61 K/cmm 03/18/2020 17:17 [facility] ABS Basophils 0.08 0.01 - 0.11 K/cmm 03/18/2020 17:17 [facility] Absolute Immature Grans 0.06 0.00 - 0.06 K/cmm 03/18/2020 17:17 [facility] Type of Differential: Auto 03/18/2020 17:17 [facility] Blood VENOUS BLOOD / Unknown Non-Lab Collect / Unknown 03/18/2020 10:35 EDT 03/18/2020 16:41 EDT Mushtaq Light DO PACKAGES & DNA PROB E ORDERABLES [facility] [address] [place] [address] * (ABNORMAL) CREATININE (03/18/2020 10:35 EDT) Creatinine 0.41(L) 0.52 - 1.04 mg/dL 03/18/2020 17:17 [facility] eGFR 135 >60 mL/min/1.7 3m2 03/18/2020 17:17 [facility] Comment:eGFR calculated gil curtis CKD-EPI equation for non- Americans. Multiply eGFR by 1.16 for patients. Blood VENOUS BLOOD / Unknown Non-Lab Collect / Unknown 03/18/2020 10:35 EDT 03/18/2020 16:41 EDT Mushtaq Light DO CHEMISTRY & BLOOD G ORDERABLES Performing Organization Address City/[facility]/ZIP Co de Phone Number [facility] [address] [place] [address] * C REACTIVE PROTEIN (03/18/2020 10:35 EDT) C-Reactive Protein <7.0 <10.0 mg/L 03/18/2020 17:17 EDT [facility] Blood VENOUS BLOOD / Unknown Non-Lab Collect / Unknown 03/18/2020 10:35 EDT 03/18/2020 16:41 EDT Mushtaq Light DO CHEMISTRY & BLOOD G ORDERABLES Performing Organization Address City/[facility] Co de Phone Number [facility] [address] [place] [address] documented in this encounter Visit Diagnoses Diagnosis Encounter for other general examination documented in this encounter Additional Health Concerns Infection Onset Date Last Indicated Resolved Time R/O COVID-19 08/04/2020 08/04/2020 08/04/2020 11:4 0 EST documented as of this encounter Care Teams Artificial Leather Calender Operator Relationship Specialty Start Date End Date Carrington Calderon MD 1 [facility] 1 [place] [address] PCP - General Internal Medicine - Primary Care 12/09/20 Abigail Díaz Sausage Stuffer 04/21/23 01/03/24 Carmelo Hendrickson Coordinator 12/01/23 Abigail Díaz Sausage Stuffer 01/04/24 documented as of this encounter
--- OUTSIDE RECORDS SUMMARY | 2024-02-10 01:25 | XMS_ITS | Encounter Summary ---
Author Organization [facility] Address [address] [place] [address] Care Team Providers Care Helpdesk Technician Name Role Phone Carrington Calderon MD Primary Care Provi anders Reason for Visit * Reason Onset Date Comments Blood Sugar Problem 03/18/2020 low;75 Medication Questions 03/18/2020 insulin Encounter Details Date Type Department Care Team (Late st Contact Info) Description 03/18/2020 Telephone [facility] Endocrinology - [facility] [address] [place] [address] Sara Zafar NP 62 [facility] [address] [place] [address] Blood Sugar Problem (low;75); Medication [...] Visit [facility] Adult Primary Care - [address] [phone] Carrington Calderon MD [address] [phone] 02/27/2024 8:30 EDT Telemedicine [facility] Sleep Program - [address] [phone] Dwight Colbert [address] [place] [address] [phone] 02/29/2024 10:30 EDT Appointment [facility] Radiology Nuclear Medicine and PET - [address] [phone] 02/29/2024 14:30 EDT Appointment [facility] Radiology Nuclear Medicine and PET - [address] [phone] 03/01/2024 8:00 EDT Appointment [facility] Radiology Nuclear Medicine and PET - [address] [phone] 03/01/2024 9:30 EDT Appointment [facility] Radiology Nuclear Medicine and PET - [address] [address] documented as of this encounter Visit Diagnoses Not on filedocumented in this encounter Additional Health Concerns Infection Onset Date Last Indicated Resolved Time R/O COVID-19 08/04/2020 08/04/2020 08/04/2020 11:4 0 EST documented as of this encounter Care Teams Helpdesk Technician Relationship Specialty Start Date End Date Carrington Calderon MD 1 [facility] 1 [place] [phone] PCP - General Internal Medicine - Primary Care 12/09/20 documented as of this encounter
--- OUTSIDE RECORDS SUMMARY | 2024-02-10 01:25 | XMS_ITS | Encounter Summary ---
Author Organization [facility] Address [address] [place] [address] Care Team Providers Care Dyeing Machine Feeder Name Role Phone Unavailable Primary Care Provider Unavailabl e Encounter Details Date Type Department Care Team (Late st Contact Info) Description 03/18/2020 Orders Only [facility] Endocrinology - [facility] [address] [place] [address] Sara Zafar, GUSTAVO 62 [facility] [address] [place] [address] Type 2 diabetes mellitus with hyperglycemia, with long-term current use of insulin ([facility]) (Primary Dx) Social History Tobacco [...] [facility] Adult Primary Care - [address] [phone] Carrington Calderon MD 1 [facility] 1 [place] [phone] 02/27/2024 8:30 EDT Telemedicine [facility] Sleep Program - [address] [phone] Dwight Colbert [address] [place] [address] [phone] 02/29/2024 10:30 EDT [facility]ointment [facility] Radiology Nuclear Medicine and PET - [address] [address] 02/29/2024 14:30 EDT Appointment [facility] Radiology Nuclear Medicine and PET - [address] [address] 03/01/2024 8:00 EDT Appointment [facility] Radiology Nuclear Medicine and PET - [address] [address] 03/01/2024 9:30 EDT Appointment [facility] Radiology Nuclear Medicine and PET - [address] [address] documented as of this encounter Visit Diagnoses Diagnosis Type 2 diabetes mellitus with hyperglycemia, with long-term current use of insulin ([facility])- Primary documented in this encounter
--- OUTSIDE RECORDS SUMMARY | 2024-02-10 01:25 | XMS_ITS | Encounter Summary ---
Author Organization [facility] Address [address] [place] [address] Care Team Providers Care Operations Forester Name Role Phone Unavailable Primary Care Provider Unavailabl e Reason for Visit * Reason Onset Date Comments Coordination Of Care 03/12/2020 Encounter Details Date Type Department Care Team (Late st Contact Info) Description 03/12/2020 Telephone [facility] Adult Primary Care - [address] 190521 Tonja Alejandro PA-C [facility] [address] [place] [phone] Coordination Of Care Social History Tobacco [...] [facility] - [address] [phone] Carrington Calderon MD [address] [address] 02/27/2024 8:30 EDT Telemedicine [facility] Sleep Program - [address] 292701 Dwight Colbert [address] [place] [address] [phone] 02/29/2024 10:30 EDT Appointment [facility] Radiology Nuclear Medicine and PET [address] [phone] 02/29/2024 14:30 EDT Appointment [facility] Radiology Nuclear Medicine and PET [address] [id number] 03/01/2024 8:00 EDT Appointment [facility] Radiology Nuclear Medicine and PET [address] [phone] 03/01/2024 9:30 EDT Appointment [facility] Radiology Nuclear Medicine and PET [address] [phone] documented as of this encounter Visit Diagnoses Not on filedocumented in this encounter
--- OUTSIDE RECORDS SUMMARY | 2024-02-10 01:25 | XMS_ITS | Encounter Summary ---
Author Organization [facility] Address [address] [place] [address] Care Team Providers Care Patient Service Coordinator Name Role Phone Unavailable Primary Care Provider Unavailabl e Reason for Visit * Reason Comments Foot Problem Encounter Details Date Type Department Care Team (Late st Contact Info) Description 03/25/2020 8:30 EDT Office Visit [facility] Foot & Ankle Program - [address] [address] Elza Navarro DPM [address] [place] [phone] Ulcer of great toe, left, with necrosis of bone ([facility]) (Primary Dx); Type 2 diabetes mellitus with diabetic polyneuropathy, with long-term current use of insulin ([facility]) Social History Tobacco Use Types Packs/Day [...] great toe of left foot ([facility]) 03/12/2020 Priority: Medium ??? Diabetic foot ulcer associated with diabetes mellitus due to underlying condition ([facility]) 03/07/2020 Priority: Medium ??? Diabetic foot infection ([facility]) 03/06/2020 Priority: Medium ??? Diabetic foot ulcer ([facility]) 03/06/2020 Priority: Medium ??? Cellulitis of great toe of left foot 11/26/2019 Priority: Medium ??? Chronic midline low back pain without sciatica 11/26/2019 Priority: Medium ??? Chronic left ear pain 09/04/2015 Priority: Medium ??? Encounter for sterilization 11/20/2019 ??? Family history of rheumatoid arthritis 09/04/2015 ??? Type 2 diabetes mellitus ([facility]) 09/03/2015 ??? Anxiety and depression 05/12/2010 ??? Migraine with aura and without status migrainosus, not intractable Past Medical History: Diagnosis Date ??? Anxiety ??? Arthritis 12/05/19- Spine- told years ago ??? Diabetes ([facility]) A1c 10.3 on 11/28/2019 ??? History [...] left, with necrosis of bone ([facility]) 2. Type 2 diabetes mellitus with diabetic polyneuropathy, with long-term current use of insulin ([facility]) No orders of the defined types [...] LPN - 03/25/2020 0830 EDT Call to [facility] with wound care orders. SWATHI TESFAYE LPN documented in this encounter Plan of Treatment Upcoming Encounters Date Type Department Care Team (Late st Contact Info) Description 02/21/2024 9:45 EDT Office Visit [facility] Adult Primary Care - [address] [phone] Carrington Calderon MD [address] [phone] 02/27/2024 8:30 EDT Telemedicine [facility] Sleep Program - [address] [phone] Dwight Colbert [address] [place] [address] [phone] 02/29/2024 10:30 EDT Appointment [facility] Radiology Nuclear Medicine and PET - [address] 169251 02/29/2024 14:30 EDT Appointment [facility] Radiology Nuclear Medicine and [address] [phone] 03/01/2024 8:00 EDT Appointment [facility] Radiology Nuclear Medicine and PET [address] [phone] 03/01/2024 9:30 EDT Appointment [facility] Radiology Nuclear Medicine and PET - [address] [address] documented as of this encounter Visit Diagnoses Diagnosis Ulcer of great toe, left, with necrosis of bone ([facility])- Primary Type 2 diabetes mellitus with diabetic polyneuropathy, with long-term current use of insulin ([facility]) documented in this encounter
--- OUTSIDE RECORDS SUMMARY | 2024-02-10 01:25 | XMS_ITS | Encounter Summary ---
Author Organization [facility] Address [address] [place] [address] Care Team Providers Care Clock Repair Technician Name Role Phone Unavailable Primary [...] [facility] - [address] 855181 Carrington Calderon MD [address] [address] 02/27/2024 8:30 EDT Telemedicine [facility] Sleep Program - [address] 006161 Dwight Colbert [address] [place] [address]311 02/29/2024 10:30 EDT Appointment [facility] Radiology Nuclear Medicine and PET [address] [phone] 02/29/2024 14:30 EDT Appointment [facility] Radiology Nuclear Medicine and PET [address] 135641 03/01/2024 8:00 EDT Appointment [facility] Radiology Nuclear Medicine and PET [address] [phone] 03/01/2024 9:30 EDT Appointment [facility] Radiology Nuclear Medicine and PET [address] [phone] documented as of this encounter Visit Diagnoses Not on filedocumented in this encounter
--- OUTSIDE RECORDS SUMMARY | 2024-02-10 01:25 | XMS_ITS | Encounter Summary ---
Author Organization [facility] Address [address] [place] [address] Care Team Providers Care Bag Tester Name Role Phone Unavailable Primary Care Provider Unavailabl e Reason for Visit * Reason Comments Diabetes Encounter Details Date Type Department Care Team (Latest Contact Info) Description 01/08/2020 10:30 EDT Telemedicine [facility] Endocrinology - [facility] [address] [place] [address] Sara Zafar NP 62 [facility] [address] [place] [address] Type 2 diabetes mellitus with hyperglycemia, with long-term current use of insulin ([facility]) (Primary Dx) Social History Tobacco [...] in 3 months I will check with COMPLIANCE REVIEWER on expected HgA1C to have surgery. documented in this encounter Progress Notes * Sara Zafar APRN - 01/08/2020 1030 EDT Subjective: [facility] F/U Note TELEMEDICINE [...] trimester miscarriages, most recently terminated a at [facility] The most recent 10/28/2019. Recurrent loss is attributed to to poorly controlled type 2 diabetes in conjunction with tobacco dependence. She saw LEGAL EDITOR on 11/03/2018, and was advised to get diabetes in control, and to quit smoking both tobacco and pot. She was scheduled for a tubal ligation December 14, but was cancelled again. 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 Previous [...] in 3 months I will check with COMPLIANCE REVIEWER on expected HgA1C to have surgery. Recommend [facility] - [address] 410571 Carrington Calderon MD [address] [phone] 02/27/2024 8:30 EDT Telemedicine [facility] Sleep Program - [address] 212891 Dwight Colbert [address] [place] [phone] 02/29/2024 10:30 EDT [facility]ointment [facility] Radiology Nuclear Medicine and PET - [address] 328321 02/29/2024 14:30 EDT [facility] PET [address] [phone] 03/01/2024 8:00 EDT [facility] Nuclear Medicine and PET - [address] [phone] 03/01/2024 9:30 EDT [facility] Nuclear Medicine and PET - [address] [address] documented as of this encounter Visit Diagnoses Diagnosis Type 2 diabetes mellitus with hyperglycemia, with long-term current use of insulin ([facility])- Primary documented in this encounter Discontinued Medications Medication Sig Discontinue Reason Start Date End Da te metFORMIN (GLUCOPHAGE) 500 mg tablet Take 2 Tabs by mouth daily for 90 days. Side effects 11/26/2019 01/08/2020 documented as of this encounter
--- OUTSIDE RECORDS SUMMARY | 2024-02-10 01:25 | XMS_ITS | Encounter Summary ---
Author Organization [facility] Address [address] [place] [address] Care Team Providers Care Cotton Weigher Name Role Phone Unavailable Primary Care Provider Unavailabl e Encounter Details Date Type Department Care Team ([facility] Contact Info) Description 03/13/2020 Documentation Visit [facility]fusion [facility] - [address] [place] [address] Natasha Crook, RN [address] [place] [address] Social History Tobacco Use Types Packs/Day Years [facility] [address] [phone] Carrington Calderon MD [address] [facility] 1 [place] [phone] 02/27/2024 8:30 EDT Telemedicine [facility] Sleep Program - [address] [place] [address] [place] [address] Sayra Dwight [address] [place] [phone] 02/29/2024 10:30 EDT Appointment [facility] Radiology Nuclear Medicine and PET - [address] [phone] 02/29/2024 14:30 EDT Appointment [facility] Radiology Nuclear Medicine and PET - [address] [phone] 03/01/2024 8:00 EDT Appointment [facility] Radiology Nuclear Medicine and PET - [address] [phone] 03/01/2024 9:30 EDT Appointment [facility] Radiology Nuclear Medicine and PET - [address] 124191 documented as of this encounter Visit Diagnoses Not on filedocumented in this encounter
--- OUTSIDE RECORDS SUMMARY | 2024-02-10 01:25 | XMS_ITS | Encounter Summary ---
Author Organization [facility] Address [address] [place] [address] Care Team Providers Care Vehicle Trimmer Name Role Phone Unavailable Primary Care Provider Unavailabl e Reason for Referral * Laboratory Services (Routine/Next Available) - New Request Specialty Diagnoses / Procedures Referred By Contac t Referred To Contact Diagnoses Diabetic foot ulcer ([facility]) Procedures C REACTIVE PROTEIN Mushtaq Light DO [address] [phone] Referral ID Status Reason Start Date Expiration Date V isits Requested Visits Authorized [id number] New Request 03/12/2020 1 1 * Laboratory Services (Routine/Next Available) - New Request Specialty Diagnoses / Procedures Referred By Contac t Referred To Contact Diagnoses Diabetic foot ulcer ([facility]) Procedures SED. RATE:Mushtaq Peoples DO [address] [address] Referral ID Status Reason Start Date Expiration Date V isits Requested Visits Authorized [id number] New Request 03/12/2020 1 1 * Laboratory Services (Routine/Next Available) - New Request Specialty Diagnoses / Procedures Referred By Contac t Referred To Contact Diagnoses Diabetic foot ulcer ([facility]) Procedures CREATININE Mushtaq Light DO [address] [address] Referral ID Status Reason Start Date Expiration Date V isits Requested Visits Authorized [id number] New Request 03/12/2020 1 1 * Laboratory Services (Routine/Next Available) - New Request Specialty Diagnoses / Procedures Referred By Kit goode Referred To Contact Diagnoses Diabetic foot ulcer ([facility]) Procedures COMPLETE BLOOD COUNT AND DIFFERENTIAL Mushtaq Light DO [address] [address] Referral ID Status Reason Start Date Expiration Date V isits Requested Visits Authorized [id number] New Request 03/12/2020 1 1 * Follow Up (Routine/Next Available) - Receiving Office to Obtain Authorization Specialty Diagnoses / Procedures Referred By Kit goode Referred To Contact Podiatry Diagnoses Diabetic foot ulcer ([facility]) Carrington Mari MD [address] [place] [address] [facility] Podiatry [address] [place] [address] Referral ID Status Reason Start Date Expiration Date Visits Requested Visits Authorized [id number] Receiving Office to Obtain Authorization Specialty Services [...] unspecified part of foot, unspecified ulcer stage ([facility]) Referral ID Status Reason Start Date Expiration Date Visits Re quested Visits Authorized [id number] 1 1 Encounter Details Date Type Department Care Team (Late st Contact Info) Description 03/06/2020 18:11 EDT - 03/12/2020 12:07 EDT Hospital Encounter [place] [address] General Medicine Telemetry Unit [address] [place] [address] [id number] Siobhan Hare PA-C [address] [place] [address] [phone] Elise Charles MD [address] [place] [address] [phone] Carrington Padilla MD [address] [place] [address] [phone] Cal Jenkins MBBS [address] [place] [phone] Nate Henderson MD [address] [place] [phone] Diabetic foot ulcer ([facility]) (Primary Dx); Diabetic foot infection (HCC-CMS); Osteomyelitis of great toe of left foot (HCC-CMS); 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, 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 ([facility]) Discharge Disposition: Home-Health Care Svc Social History [...] Osteomyelitis of great toe of left foot ([facility]) Additional Problems Managed in the Hospital Active Hospital Problems Diagnosis Date Noted ??? *Osteomyelitis of great toe of left foot ([facility]) 03/12/2020 ??? Diabetic foot ulcer ([facility]) 03/06/2020 Resolved Hospital Problems No resolved problems [...] Units Date/Time Anaerobe Culture/Smear (inc. aerobes), Other [[id number]] (Abnormal) (Susceptibility) Collected: 03/07/20 1421 Lab Status: Preliminary result Specimen: Bone from Toe Updated: 03/10/20 1751 Organism ID Few Staphylococcus aureus Few Streptococcus agalactiae Few Streptococcus anginosus Moderate Prevotella bivia Smear Few Neutrophils Present Few Gram Positive Cocci Upcoming Appointments 2020 9:30 Office Visit with Elza Navarro DPM [facility] Foot & Ankle Program - [place] (--) [address] [facility] [phone] 2020 13:00 Televideo Short with Tonja Plascencia APRN [facility] Infectious Disease [facility] (--) [address] [facility] [address] Mar 27, 2020 13:30 Televideo Short with Tonja Plascencia [facility] Infectious Disease [facility] (--) [address] [facility] [address] Apr 03, 2020 13:30 Televideo Short with Tonja Plascencia [facility] Infectious Disease [facility] (--) [address] [facility] [address] Apr 10, 2020 13:30 Televideo Short with Tonja Plascencia APRN [facility] Infectious Disease [facility] (--) [address] [facility] [address] Apr 16, 2020 9:30 Televideo Short with Mushtaq Light DO [facility] Infectious Disease [facility] (--) [address] [facility] [id number] Discharge Handoff Communication Following information conveyed to [...] Disposition Code Departure Means Destination Home-Health Care [facility] Home documented in this encounter Progress Notes * Nate Henderson MD - 03/11/2020 2340 EDT Medicine Progress Note Admit Date: 03/06/2020 [...] the patient's care with the physician assistant cross country coach. Nate Henderson MD 03/24/2020 12:46 * Elza [...] questions. * Nate Henderson MD - 03/10/2020 7995 EDT Medicine Progress Note Admit Date: 03/06/2020 [...] the patient's care with the physician assistant cross country coach. Nate Henderson MD 03/24/2020 12:48 * Ranulfo Valverde RN - 03/10/2020 0461 EDT Patient for home on IV antibiotic for a long course. Had discussed this with the pt and her spouse as a possibility last week. As of this time the pt isstill in agreement with home IV medication. She has chosen the [facility] and I have called to the Liaison for the [facility] to give a heads up as they will come into the home for reinforcement of teaching of self administration and will also change the dressing on the PICC line as per their agency protocol. Call to the [facility] and they have confirmed that the pt has 100% coverage from Medicaid. No prior auth needed. Awaiting PICC placement and initial infusion of medication and teaching from [facility] once the pt is ready to go back to home. Case Management will follow to transition. Ranulfo Valverde RN [facility] 0430 * Taj Palomares MD - 03/10/2020 [...] no complaints. Call calloway in reach. STACIE SALAAZR RN 03/10/2020 1:36 * Valencia Antunez - [...] Results: Anaerobe Culture/Smear (inc. aerobes), Other (Order [id number]) Abnormal Status: Preliminary result (Collected: 03/07/2020 14:21) [...] 9:34 * Carrington Mari MD - 03/08/2020 2997 EDT Orthopaedic Progress Note for 03/08/20 Pt [...] answer calls. Please direct calls to orthopaedics conventional mortgage underwriter resident for further questions. * Aliya Santizo, [facility] - 03/07/2020 3498 EDT Pharmacy Note: Vancomycin Monitoring Cristy Luo [...] Assessment REASON FOR ADMISSION: Diabetic foot ulcer ([facility]) Patient understands reason for admission: Yes PATIENT [...] FOR FINANCES: TRANSPORTATION: Transportation: Family, Self CULTURAL, JEHOVAH'S WITNESS and/or LANGUAGE factors affecting health care/discharge planning: [...] Home Health Services: None DME Provider: Pharmacy: [id number] - [facility] [address] [facility] [address] Home Health: Other: POST HOSPITAL TRANSITION PLAN: Have met with the pt and her this day. She just had a debridement and BX. Awaiting results. Pt and her are both working and raising children. 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 Will await results of the BX and the determination regarding need for medication and specifics related to type, and duration and recommendations for mode of delivery. Case Management will follow for transition. This pt has Medicaid and is capable to having home IV medication if needed. Specifics for finances would need to be confirmed from [facility] most likely if IV is indicated. RANULFO VALVERDE RN [facility] 0430 03/07/2020 16:13 * Vicki Phan RN - 03/07/2020 3470 EDT Diabetes Nurse clinician met with Stella [...] a planning healthy meals folder. Vicki CLARKE automotive title clerk Nurse Clinician #[id number] * Valencia Antunez - 03/07/2020 0952 EDT [...] attestation - Adair Martinez PA-C - 03/07/2020 5657 EDT I attest that I have reviewed [...] Notes * Carrington Padilla MD - 03/06/2020 0895 EDT Images from the original note were [...] 12/05/19- Spine- told years ago ??? Diabetes ([facility]) A1c 10.3 on 11/28/2019 ??? History [...] Central Catheter Insertion First Catheter This Session patient transportation driver: Patient Location: M606/M606-02 Preliminary Data: Insertion Date: 03/11/20 Insertion Time: 1353 First Business Unit Controller: Nory Ware RN RN/SANDOR Documenting Procedure: Jessika [...] Line Operators: Number Of Operators: 1 First Business Unit Controller's Name: Nory Ware RN First Business Unit Controller's Title: Vascular engineering intern Unless otherwise noted, there were no complications, [...] history of repeated infections. 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 Review of Systems: Remainder of a ten point review of systems was performed and negative. Past Medical History: has a past medical history of Anxiety, Arthritis, Diabetes ([facility]), Historyof general anesthesia, Nausea & vomiting, Obesity, [...] Lives with her and children. 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 Vital Signs: BP 109/66 (BP Cuff Location: [...] lost to follow-up. 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 She is a current smoker and endorses occasional alcohol and marijuana use. Ambulatory status: ambulates without assistive devices Last meal: 12:30 03/07/20 Past Medical History: Diagnosis Date ??? Anxiety ??? Arthritis 12/05/19- Spine- told years ago ??? Diabetes ([facility]) A1c 10.3 on 11/28/2019 ??? 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 [...] T2DM with neuropathy who presents to the [facility] PCP's reccomendation, with increased swelling and [...] further care. Final diagnoses: Diabetic foot ulcer ([facility]) This documentation is recorded by Celestina Francis [...] as increased swelling. She does have a nanotechnology engineering technician, last saw them in late December. She [...] physician: Araceli Final diagnoses: Diabetic foot ulcer ([facility]) DISPOSITION: Admitted The patient's pain was managed [...] the Emergency Department: Good PCP: Tonja Alejandro [facility] 03/07/2020 12:09 No flowsheet data found. * Leila Biggs RN - 03/06/2020 1717 EDT TCALL: Stella Luo 10-15-85 Dr. Ferrer [...] Plan Goals Description: D: Patient admitted to [facility] @ 2300. Patient's chief complaint is [...] 03/07/2020 0305 EDT D: Patient admitted to [facility] @ 2300. Patient's chief complaint is [...] [facility] Adult Primary Care - [address] [phone] Carrington Calderon MD 1 [facility] 1 [place] [phone] 02/27/2024 8:30 EDT Telemedicine [facility] Sleep Program - [address] [phone] Dwight Colbert [address] [place] [phone] 02/29/2024 10:30 EDT Appointment [facility] Radiology Nuclear Medicine and PET - [address] [phone] 02/29/2024 14:30 EDT Appointment [facility] Radiology Nuclear Medicine and PET - [address] [address] 03/01/2024 8:00 EDT Appointment [facility] Radiology Nuclear Medicine and PET - [address] [address] 03/01/2024 9:30 EDT Appointment [facility] Radiology Nuclear Medicine and PET - [address] [address] Scheduled Orders Name Type Priority Associated Diagnoses Orde r Schedule COMPLETE BLOOD COUNT AND DIFFERENTIAL Lab Routine Diabetic foot ulcer ([facility]) Ordered: 03/12/2020 CREATININE Lab Routine Diabetic foot ulcer ([facility]) Ordered: 03/12/2020 SED. RATE:WESTERGREN Lab Routine Diabetic foot ulcer ([facility]) Ordered: 03/12/2020 C REACTIVE PROTEIN Lab Routine Diabetic foot ulcer ([facility]) Ordered: 03/12/2020 Scheduled Referrals Name Type Priority Associated Diagnoses Orde r Schedule AMB CONS/FOLLOW UP PODIATRY Outpatient Referral Routine Diabetic foot ulcer ([facility]) Ordered: 03/07/2020 documented as of this [...] EDT) 03/18/2020 10:5 1 EDT Scan 2 Oil Burner PROCEDURE/MINOR BRAULIO GICAL ORDERABLES * ORDERS - SCANNED (03/14/2020 7:54 EDT) 03/14/2020 7:54 EDT Scan 2 Oil Burner ADMISSION ORDERABLE S * (ABNORMAL) POCT GLUCOSE, INTERFACED (03/12/2020 7:40 EDT) Glucose, POC 144(H) 70 - 100 mg/dL 03/12/2020 7:41 EDT [facility] road roller operator ID [id number] 03/12/2020 7:41 EDT [facility] HN LAB POC COMMENT (GLUCOSE) Test Performed by Nursing Services 03/12/2020 7:41 EDT [facility] Blood CAPILLARY BLOOD / Unknown 03/12/2020 7:40 EDT 03/12/2020 7:41 EDT Catherine Booth MD POINT OF CARE TEST ORDERABLES [facility] [address] [place] [address] * (ABNORMAL) POCT GLUCOSE, INTERFACED (03/11/2020 21:39 EDT) Glucose, POC 210(H) 70 - 100 mg/dL 03/11/2020 21:42 EDT [facility] road roller operator ID [id number] 03/11/2020 21:42 EDT [facility] HN LAB POC COMMENT (GLUCOSE) Test Performed by Nursing Services 03/11/2020 21:42 EDT [facility] Blood CAPILLARY BLOOD / Unknown 03/11/2020 21:39 EDT 03/11/2020 21:42 EDT Catherine Booth MD POINT OF CARE TEST ORDERABLES Performing Organization Address [facility] Co de Phone Number [facility] [address] [place] [address] * (ABNORMAL) POCT GLUCOSE, INTERFACED (03/11/2020 17:49 EDT) Glucose, POC 151(H) 70 - 100 mg/dL 03/11/2020 17:53 EDT [facility] road roller operator ID [id number] 03/11/2020 17:53 EDT [facility] HN LAB POC COMMENT (GLUCOSE) Test Performed by Nursing Services 03/11/2020 17:53 EDT [facility] Blood CAPILLARY BLOOD / Unknown 03/11/2020 17:49 EDT 03/11/2020 17:53 EDT Catherine Booth MD POINT OF CARE TEST ORDERABLES Performing Organization Address City/[facility] de Phone Number [facility] [address] [place] [address] * INSERT PICC LINE (03/11/2020 14:00 EDT) Narrative Nory Ware RN - 03/11/2020 14:00 EDT Nory Ware, RN ? 03/11/2020 14:03 Central Catheter Insertion First Catheter This Session ?patient transportation driver: Patient Location: M606/M606-02 Preliminary Data: Insertion Date: 03/11/20 Insertion Time: 1353 First Business Unit Controller: Nory Ware RN RN/MA Documenting Procedure: Jessika [...] Line Operators: Number Of Operators: 1 First Business Unit Controller's Name: Nory Ware RN First Business Unit Controller's Title: Vascular engineering intern Unless otherwise noted, there were no complications, no blood loss and no cultures obtained. NORY WARE RN ?? 03/11/2020 ?? 14:01 Jarrett Gutierrez PA-C IV THERAPY ORDERABL ES * (ABNORMAL) POCT GLUCOSE, INTERFACED (03/11/2020 11:57 EDT) Glucose, POC 185(H) 70 - 100 mg/dL 03/11/2020 12:16 EDT [facility] road roller operator ID [id number] 03/11/2020 12:16 EDT [facility] HN LAB POC COMMENT (GLUCOSE) Test Performed by Nursing Services 03/11/2020 12:16 EDT [facility] Blood CAPILLARY BLOOD / Unknown 03/11/2020 11:57 EDT 03/11/2020 12:16 EDT Catherine Booth MD POINT OF CARE TEST ORDERABLES [facility] [address] [place] [address] * (ABNORMAL) POCT GLUCOSE, INTERFACED (03/11/2020 8:06 EDT) Glucose, POC 110(H) 70 - 100 mg/dL 03/11/2020 14:30 EDT [facility] road roller operator ID [id number] 03/11/2020 14:30 EDT [facility] HN LAB POC COMMENT (GLUCOSE) Test Performed by Nursing Services 03/11/2020 14:30 EDT [facility] Blood CAPILLARY BLOOD / Unknown 03/11/2020 8:06 EDT 03/11/2020 14:30 EDT Catherine Booth MD POINT OF CARE TEST ORDERABLES Performing Organization Address City/[facility]/ZIP Co de Phone Number [facility] [address] [place] [address] * (ABNORMAL) POCT GLUCOSE, INTERFACED (03/10/2020 21:23 EDT) Glucose, POC 185(H) 70 - 100 mg/dL 03/10/2020 21:26 EDT [facility] road roller operator ID [id number] 03/10/2020 21:26 EDT [facility] HN LAB POC COMMENT (GLUCOSE) Test Performed by Nursing Services 03/10/2020 21:26 EDT [facility] Blood CAPILLARY BLOOD / Unknown 03/10/2020 21:23 EDT 03/10/2020 21:26 EDT Catherine Booth MD POINT OF CARE TEST ORDERABLES [facility] [address] [place] [address] * (ABNORMAL) POCT GLUCOSE, INTERFACED (03/10/2020 18:42 EDT) Glucose, POC 154(H) 70 - 100 mg/dL 03/10/2020 18:47 EDT [facility] road roller operator ID [id number] 03/10/2020 18:47 EDT [facility] HN LAB POC COMMENT (GLUCOSE) Test Performed by Nursing Services 03/10/2020 18:47 EDT [facility] Blood CAPILLARY BLOOD / Unknown 03/10/2020 18:42 EDT 03/10/2020 18:47 EDT Catherine Booth MD POINT OF CARE TEST ORDERABLES Performing Organization Address [facility] Co de Phone Number [facility] [address] [place] [address] * (ABNORMAL) POCT GLUCOSE, INTERFACED (03/10/2020 12:24 EDT) Glucose, POC 149(H) 70 - 100 mg/dL 03/10/2020 12:26 EDT [facility] road roller operator ID [id number] 03/10/2020 12:26 EDT [facility] HN LAB POC COMMENT (GLUCOSE) Test Performed by Nursing Services 03/10/2020 12:26 EDT [facility] Blood CAPILLARY BLOOD / Unknown 03/10/2020 12:24 EDT 03/10/2020 12:26 EDT Catherine Booth MD POINT OF CARE TEST ORDERABLES Performing Organization Address [facility]/ZIP Co de Phone Number [facility] [address] [place] [address] * (ABNORMAL) POCT GLUCOSE, INTERFACED (03/10/2020 8:33 EDT) Glucose, POC 126(H) 70 - 100 mg/dL 03/10/2020 8:39 EDT [facility] road roller operator ID [id number] 03/10/2020 8:39 EDT [facility] HN LAB POC COMMENT (GLUCOSE) Test Performed by Nursing Services 03/10/2020 8:39 EDT [facility] Blood CAPILLARY BLOOD / Unknown 03/10/2020 8:33 EDT 03/10/2020 8:39 EDT Catherine Booth MD POINT OF CARE TEST ORDERABLES Performing Organization Address City/[facility]/ZIP Co de Phone Number [facility] [address] [place] [address] * ELECTROLYTES (03/10/2020 7:01 EDT) Sodium 141 136 - 145 mEq/L 03/10/2020 8:04 EDT [facility] Potassium 4.6 3.5 - 5.0 mEq/L 03/10/2020 8:04 EDT [facility] Chloride 103 96 - 110 mEq/L 03/10/2020 8:04 EDT [facility] CO2 Total 29 22 - 32 mEq/L 03/10/2020 8:04 EDT [facility] Blood VENOUS BLOOD / Unknown Venipuncture / Unknown 03/10/2020 7:01 EDT 03/10/2020 7:35 EDT Adair Martinez PA-C CHEMISTRY & BLOOD GAS ORDERABLES [facility] [address] [place] [address] * (ABNORMAL) COMPLETE BLOOD COUNT (03/10/2020 7:01 EDT) WBC 12.33 4.00 - 12.40 K/cmm 03/10/2020 7:42 EDT [facility] RBC 4.61 3.86 - 5.04 M/cmm 03/10/2020 7:42 T [facility] Hemoglobin 14.1 11.6 - 15.2 gm/dL 03/10/2020 7:42 EDT [facility] HCT 41.4 34.9 - 44.4 % 03/10/2020 7:42 EDT [facility] MCV 90 81 - 98 fl 03/10/2020 7:42 EDT [facility] MCH 30.6 26.7 - 33.3 pg 03/10/2020 7:42 EDT [facility] MCHC 34.1 32.1 - 35.9 gm/dL 03/10/2020 7:42 EDT [facility] RDW-CV 12.3 <14.7 % 03/10/2020 7:42 EDT [facility] RDW-SD 40.3 <50.4 fl 03/10/2020 7:42 EDT [facility] PLT 424(H) 141 - 377 K/cmm 03/10/2020 7:42 EDT [facility] MPV 9.8 9.5 - 12.7 fl 03/10/2020 7:42 EDT [facility] Blood VENOUS BLOOD / Unknown Venipuncture / Unknown 03/10/2020 7:01 EDT 03/10/2020 7:35 EDT Adair Martinez PA-C HEMATOLOGY & PF4 O RDERABLES Performing Organization Address [facility] Co de Phone Number [facility] [address] [place] [address] * (ABNORMAL) CREATININE (03/10/2020 7:01 EDT) Creatinine 0.50(L) 0.52 - 1.04 mg/dL 03/10/2020 8:04 EDT [facility] eGFR 127 >60 mL/min/1.7 3m2 03/10/2020 8:04 EDT [facility] Comment:eGFR calculated gil curtis CKD-EPI equation for non- Americans. Multiply eGFR by 1.16 for patients. Blood VENOUS BLOOD / Unknown Venipuncture / Unknown 03/10/2020 7:01 EDT 03/10/2020 7:35 EDT Adair Martinez PA-C CHEMISTRY & BLOOD GAS ORDERABLES Performing Organization Address [facility]/ZIP Co de Phone Number [facility] [address] [place] [address] * (ABNORMAL) POCT GLUCOSE, INTERFACED (03/09/2020 22:50 EDT) Glucose, POC 150(H) 70 - 100 mg/dL 03/09/2020 22:51 EDT [facility] road roller operator ID [id number] 03/09/2020 22:51 EDT [facility] HN LAB POC COMMENT (GLUCOSE) Test Performed by Nursing Services 03/09/2020 22:51 EDT [facility] Blood CAPILLARY BLOOD / Unknown 03/09/2020 22:50 EDT 03/09/2020 22:51 EDT Catherine Booth MD POINT OF CARE TEST ORDERABLES Performing Organization Address City/State/[facility] Co de Phone Number [facility] [address] [place] [address] * MR FOOT W WO CONTRAST LEFT [...] flexor hallux longus tenosynovitis. Procedure Note Zak aMya, DO - 03/10/2020 MR FOOT W WO [...] 70 - 100 mg/dL 03/09/2020 17:22 EDT [facility] road roller operator ID [id number] 03/09/2020 17:22 EDT [facility] HN LAB POC COMMENT (GLUCOSE) Test Performed by Nursing Services 03/09/2020 17:22 EDT [facility] Blood CAPILLARY BLOOD / Unknown 03/09/2020 17:21 EDT 03/09/2020 17:22 EDT Catherine Booth MD POINT OF CARE TEST ORDERABLES Performing Organization Address [facility] Co de Phone Number [facility] [address] [place] [address] * (ABNORMAL) POCT GLUCOSE, INTERFACED (03/09/2020 13:23 EDT) Glucose, POC 178(H) 70 - 100 mg/dL 03/09/2020 13:24 EDT [facility] road roller operator ID [id number] 03/09/2020 13:24 EDT [facility] HN LAB POC COMMENT (GLUCOSE) Test Performed by Nursing Services 03/09/2020 13:24 EDT [facility] Blood CAPILLARY BLOOD / Unknown 03/09/2020 13:23 EDT 03/09/2020 13:24 EDT Catherine Booth MD POINT OF CARE TEST ORDERABLES Performing Organization Address City/[facility]/ZIP Co de Phone Number [facility] [address] [place] [address] * (ABNORMAL) POCT GLUCOSE, INTERFACED (03/09/2020 8:38 EDT) Glucose, POC 108(H) 70 - 100 mg/dL 03/09/2020 8:43 EDT [facility] road roller operator ID [id number] 03/09/2020 8:43 EDT [facility] HN LAB POC COMMENT (GLUCOSE) Test Performed by Nursing Services 03/09/2020 8:43 EDT [facility] Blood CAPILLARY BLOOD / Unknown 03/09/2020 8:38 EDT 03/09/2020 8:43 EDT Catherine Booth MD POINT OF CARE TEST ORDERABLES [facility] [address] [place] [address] * (ABNORMAL) POCT GLUCOSE, INTERFACED (03/08/2020 20:52 EDT) Glucose, POC 122(H) 70 - 100 mg/dL 03/08/2020 20:58 EDT [facility] road roller operator ID [id number] 03/08/2020 20:58 EDT [facility] HN LAB POC COMMENT (GLUCOSE) Test Performed by Nursing Services 03/08/2020 20:58 EDT [facility] Blood CAPILLARY BLOOD / Unknown 03/08/2020 20:52 EDT 03/08/2020 20:58 EDT Catherine Booth MD POINT OF CARE TEST ORDERABLES Performing Organization Address City/[facility]/ZIP Co de Phone Number [facility] [address] [place] [address] * POCT GLUCOSE, INTERFACED (03/08/2020 17:44 EDT) Glucose, POC 99 70 - 100 mg/dL 03/08/2020 17:44 EDT [facility] road roller operator ID [id number] 03/08/2020 17:44 EDT [facility] HN LAB POC COMMENT (GLUCOSE) Test Performed by Nursing Services 03/08/2020 17:44 EDT [facility] Blood CAPILLARY BLOOD / Unknown 03/08/2020 17:44 EDT 03/08/2020 17:44 EDT Catherine Booth MD POINT OF CARE TEST ORDERABLES [facility] [address] [place] [address] * (ABNORMAL) POCT GLUCOSE, INTERFACED (03/08/2020 13:15 EDT) Glucose, POC 142(H) 70 - 100 mg/dL 03/08/2020 13:16 EDT [facility] road roller operator ID [id number] 03/08/2020 13:16 EDT [facility] HN LAB POC COMMENT (GLUCOSE) Test Performed by Nursing Services 03/08/2020 13:16 EDT [facility] Blood CAPILLARY BLOOD / Unknown 03/08/2020 13:15 EDT 03/08/2020 13:16 EDT Catherine Booth MD POINT OF CARE TEST ORDERABLES Performing Organization Address [facility] Co de Phone Number [facility] [address] [place] [address] * (ABNORMAL) POCT GLUCOSE, INTERFACED (03/08/2020 7:45 EDT) Glucose, POC 176(H) 70 - 100 mg/dL 03/08/2020 7:47 EDT [facility] road roller operator ID [id number] 03/08/2020 7:47 EDT [facility] HN LAB POC COMMENT (GLUCOSE) Test Performed by Nursing Services 03/08/2020 7:47 EDT [facility] Blood CAPILLARY BLOOD / Unknown 03/08/2020 7:45 EDT 03/08/2020 7:47 EDT Catherine Booth MD POINT OF CARE TEST ORDERABLES Performing Organization Address [facility]/ZIP Co de Phone Number [facility] [address] [place] [address] * (ABNORMAL) CREATININE (03/08/2020 7:20 EDT) Creatinine 0.42(L) 0.52 - 1.04 mg/dL 03/08/2020 9:12 EDT [facility] eGFR 134 >60 mL/min/1.7 3m2 03/08/2020 9:12 EDT [facility] Comment:eGFR calculated usin g CKD-EPI equation for non- Americans. Multiply eGFR by 1.16 for patients. Blood VENOUS BLOOD / Unknown Venipuncture / Unknown 03/08/2020 7:20 EDT 03/08/2020 8:43 EDT Adair DAWSON-C CHEMISTRY & BLOOD GAS ORDERABLES Performing Organization Address [facility] Co de Phone Number [facility] [address] [place] [address] * ELECTROLYTES (03/08/2020 7:20 EDT) Sodium 139 136 - 145 mEq/L 03/08/2020 9:12 EDT [facility] Potassium 4.6 3.5 - 5.0 mEq/L 03/08/2020 9:12 EDT [facility] Chloride 105 96 - 110 mEq/L 03/08/2020 9:12 EDT [facility] CO2 Total 25 22 - 32 mEq/L 03/08/2020 9:12 EDT [facility] Blood VENOUS BLOOD / Unknown Venipuncture / Unknown 03/08/2020 7:20 EDT 03/08/2020 8:43 EDT Adair WOLFFC CHEMISTRY & BLOOD GAS ORDERABLES Performing Organization Address [facility] Co de Phone Number [facility] [address] [place] [address] * (ABNORMAL) COMPLETE BLOOD COUNT (03/08/2020 7:20 EDT) WBC 11.24 4.00 - 12.40 K/cmm 03/08/2020 8:25 EDT [facility] RBC 4.29 3.86 - 5.04 M/cmm 03/08/2020 8:25 EDT [facility] Hemoglobin 13.2 11.6 - 15.2 gm/dL 03/08/2020 8:25 EDT [facility] HCT 37.9 34.9 - 44.4 % 03/08/2020 8:25 EDT [facility] MCV 88 81 - 98 fl 03/08/2020 8:25 EDT [facility] MCH 30.8 26.7 - 33.3 pg 03/08/2020 8:25 EDT [facility] MCHC 34.8 32.1 - 35.9 gm/dL 03/08/2020 8:25 EDT [facility] RDW-CV 12.3 <14.7 % 03/08/2020 8:25 EDT [facility] RDW-SD 39.5 <50.4 fl 03/08/2020 8:25 EDT [facility] PLT 406(H) 141 - 377 K/cmm 03/08/2020 8:25 EDT [facility] MPV 9.9 9.5 - 12.7 fl 03/08/2020 8:25 EDT [facility] Blood VENOUS BLOOD / Unknown Venipuncture / Unknown 03/08/2020 7:20 EDT 03/08/2020 8:11 EDT Adair Martinez PA-C HEMATOLOGY & PF4 O RDERABLES [facility] [address] [place] [address] * VANCOMYCIN TROUGH (03/07/2020 21:29 EDT) [facility] Vancomycin Trough 13.0 10.0 - 20.0 ug/mlL 03/07/2020 22:02 EDT [facility] Draw Type Not Given 03/07/2020 22:02 EDT [facility] Blood VENOUS BLOOD / Unknown Venipuncture / Unknown 03/07/2020 21:29 EDT 03/07/2020 21:33 EDT Cal GARIBAY CHEMISTRY & BLOOD GAS ORDERABLES [facility] [address] [place] [address] * (ABNORMAL) POCT GLUCOSE, INTERFACED (03/07/2020 21:25 EDT) Glucose, POC 105(H) 70 - 100 mg/dL 03/07/2020 21:30 EDT [facility] roller operator [place] [id number] 03/07/2020 21:30 EDT [facility] HN LAB POC COMMENT (GLUCOSE) Test Performed by Nursing Services 03/07/2020 21:30 EDT [facility] Blood CAPILLARY BLOOD / Unknown 03/07/2020 21:25 EDT 03/07/2020 21:30 EDT Catherine Booth MD POINT OF CARE TEST ORDERABLES [facility] [address] [place] [address] * (ABNORMAL) POCT GLUCOSE, INTERFACED (03/07/2020 17:40 EDT) Glucose, POC 196(H) 70 - 100 mg/dL 03/07/2020 18:59 EDT [facility] road roller operator ID [id number] 03/07/2020 18:59 EDT [facility] HN LAB POC COMMENT (GLUCOSE) Test Performed by Nursing Services 03/07/2020 18:59 EDT [facility] Blood CAPILLARY BLOOD / Unknown 03/07/2020 17:40 EDT 03/07/2020 18:59 EDT Catherine Booth MD POINT OF CARE TEST ORDERABLES Performing Organization Address City/[facility]/ZIP Co de Phone Number [facility] [address] [place] [address] * (ABNORMAL) ANAEROBE CULTURE/SMEAR(INC. AEROBES), OTHER (03/07/2020 14:21 EDT) Organism ID Few Staphylococcus aureus(A) 03/13/2020 7:50 EDT [facility] Comment:Susceptible to nafci llin, cephalosporins and other beta lactam antibiotics (mecA gene product absent). Organism ID Few Streptococcus agalactiae(A) 03/13/2020 7:50 EDT [facility] Comment:Penicillin and ampic illin are drugs of choice for treatment of beta hemolytic streptococcal infections. Organism ID Few Streptococcus anginosus(A) 03/13/2020 7:50 EDT [facility] Organism ID Moderate Prevotella bivia(A) 03/13/2020 7:50 EDT [facility] Smear Few Neutrophils Present(A) 03/13/2020 7:50 EDT [facility] Smear Few Gram Positive Cocci(A) 03/13/2020 7:50 EDT [facility] Bone ENTIRE TOE [...] Martinez PA-C MICROBIOLOGY - GEN ERAL ORDERABLES [facility] [address] [place] [address] * XR FOOT LEFT 3 OR MORE [...] 70 - 100 mg/dL 03/07/2020 12:26 EDT [facility] roller operator ID [id number] 03/07/2020 12:26 EDT [facility] HN LAB POC COMMENT (GLUCOSE) Test Performed by Nursing Services 03/07/2020 12:26 EDT [facility] Blood CAPILLARY BLOOD / Unknown 03/07/2020 12:23 EDT 03/07/2020 12:26 EDT Cal GARIABY POINT OF CAR E TEST ORDERABLES [facility] [address] [place] [address] * (ABNORMAL) POCT GLUCOSE, INTERFACED (03/07/2020 11:11 EDT) Glucose, POC 187(H) 70 - 100 mg/dL 03/07/2020 11:21 EDT [facility] road roller operator ID [id number] 03/07/2020 11:21 EDT [facility] HN LAB POC COMMENT (GLUCOSE) Test Performed by Nursing Services 03/07/2020 11:21 EDT [facility] Blood CAPILLARY BLOOD / Unknown 03/07/2020 11:11 EDT 03/07/2020 11:21 EDT Catherine Booth MD POINT OF CARE TEST ORDERABLES Performing Organization Address City/[facility]/ZIP Co de Phone Number [facility] [address] [place] [address] * (ABNORMAL) POCT GLUCOSE, INTERFACED (03/07/2020 7:37 EDT) Glucose, POC 157(H) 70 - 100 mg/dL 03/07/2020 7:41 EDT [facility] road roller operator ID [id number] 03/07/2020 7:41 EDT [facility] HN LAB POC COMMENT (GLUCOSE) Test Performed by Nursing Services 03/07/2020 7:41 EDT [facility] Blood CAPILLARY BLOOD / Unknown 03/07/2020 7:37 EDT 03/07/2020 7:41 EDT Catherine Booth MD POINT OF CARE TEST ORDERABLES [facility] [address] [place] [address] * ELECTROLYTES (03/07/2020 7:02 EDT) Sodium 138 136 - 145 mEq/L 03/07/2020 8:22 EDT [facility] Potassium 4.2 3.5 - 5.0 mEq/L 03/07/2020 8:22 EDT [facility] Chloride 103 96 - 110 mEq/L 03/07/2020 8:22 EDT [facility] CO2 Total 27 22 - 32 mEq/L 03/07/2020 8:22 EDT [facility] Blood VENOUS BLOOD / Unknown Venipuncture / Unknown 03/07/2020 7:02 EDT 03/07/2020 7:46 EDT Catherine Booth MD CHEMISTRY & BLOOD GAS ORDERABLES Performing Organization Address City/[facility] Co de Phone Number [facility] [address] [place] [address] * (ABNORMAL) CREATININE (03/07/2020 7:02 EDT) Creatinine 0.44(L) 0.52 - 1.04 mg/dL 03/07/2020 8:22 EDT [facility] eGFR 132 >60 mL/min/1.7 3m2 03/07/2020 8:22 EDT [facility] Comment:eGFR calculated gil curtis CKD-EPI equation for non- Americans. Multiply eGFR by 1.16 for patients. Blood VENOUS BLOOD / Unknown Venipuncture / Unknown 03/07/2020 7:02 EDT 03/07/2020 7:46 EDT Catherine Booth MD CHEMISTRY & BLOOD GAS ORDERABLES Performing Organization Address City/[facility]/ZIP Co de Phone Number [facility] [address] [place] [address] * BUN (03/07/2020 7:02 EDT) BUN 10 10 - 26 mg/dL 03/07/2020 8:22 EDT [facility] Blood VENOUS BLOOD / Unknown Venipuncture / Unknown 03/07/2020 7:02 EDT 03/07/2020 7:46 EDT Catherine Booth MD CHEMISTRY & BLOOD GAS ORDERABLES [facility] [address] [place] [address] * (ABNORMAL) COMPLETE BLOOD COUNT (03/07/2020 7:02 EDT) Pathologist [facility] WBC 11.29 4.00 - 12.40 K/cmm 03/07/2020 7:55 EDT [facility] RBC 4.29 3.86 - 5.04 M/cmm 03/07/2020 7:55 EDT [facility] Hemoglobin 13.0 11.6 - 15.2 gm/dL 03/07/2020 7:55 EDT [facility] HCT 37.2 34.9 - 44.4 % 03/07/2020 7:55 EDT [facility] MCV 87 81 - 98 fl 03/07/2020 7:55 EDT [facility] MCH 30.3 26.7 - 33.3 pg 03/07/2020 7:55 EDT [facility] MCHC 34.9 32.1 - 35.9 gm/dL 03/07/2020 7:55 EDT [facility] RDW-CV 12.2 <14.7 % 03/07/2020 7:55 EDT [facility] RDW-SD 38.5 <50.4 fl 03/07/2020 7:55 EDT [facility] PLT 387(H) 141 - 377 K/cmm 03/07/2020 7:55 EDT [facility] MPV 10.0 9.5 - 12.7 fl 03/07/2020 7:55 EDT [facility] Blood VENOUS BLOOD / Unknown Venipuncture / Unknown 03/07/2020 7:02 EDT 03/07/2020 7:49 EDT Catherine Booth MD HEMATOLOGY & PF4 O RDERABLES [facility] [address] [place] [address] * (ABNORMAL) POCT GLUCOSE, INTERFACED (03/06/2020 23:53 EDT) Glucose, POC 262(H) 70 - 100 mg/dL 03/06/2020 23:57 EDT [facility] road roller operator [place] [id number] 03/06/2020 23:57 EDT [facility] HN LAB POC COMMENT (GLUCOSE) Test Performed by Nursing Services 03/06/2020 23:57 EDT [facility] Blood CAPILLARY BLOOD / Unknown 03/06/2020 23:53 EDT 03/06/2020 23:57 EDT Carrington Padilla MD POINT OF CARE TEST ORDERABLES Performing Organization Address City/[facility]/ZIP Co de Phone Number [facility] [address] [place] [address] * COVID-19 TEST [facility] PCR (03/06/2020 22:00 EDT) Swab ENTIRE NASOPHARYNX / Unknown Swab / Unknown 03/06/2020 22:00 EDT 03/06/2020 22:05 EDT Siobhan Hare PA-C MICROBIOLOGY - GENERAL ORDERABLES Performing Organization Address City/[facility]/ZIP Co de Phone Number [facility] [address] [place] [address] * COVID-19 TESTING (03/06/2020 22:00 EDT) Pathologist [facility] COVID-19 rt-PCR Result Negative Negative 03/07/2020 1:27 EDT [facility] Comment: This [...] history, and epidemiological information. Performed on the [employer] [place] Fusion instrument Performing Lab [place] [facility] 03/07/2020 1:27 EDT [facility] Swab ENTIRE NASOPHARYNX / Unknown Swab / Unknown 03/06/2020 22:00 EDT 03/06/2020 22:05 EDT Siobhan Hare PA-C MICROBIOLOGY - GENERAL ORDERABLES [facility] [address] [place] [address] * (ABNORMAL) FRUCTOSAMINE (03/06/2020 19:26 EDT) Fructosamine, S 360(H) 200 - 285 mcmol/L 03/09/2020 8:44 EDT [facility] Comment: Test Performed by: [facility] [place] [address] Self Contained [employer] Unit Teacher: Wiley Fry M.D. Ph.D.; CLIA# [id number] Blood VENOUS BLOOD / Unknown Venipuncture / Unknown 03/06/2020 19:26 EDT 03/06/2020 19:48 EDT Catherine Booth MD CHEMISTRY & BLOOD GAS ORDERABLES Performing Organization Address [facility] Co de Phone Number [facility] [address] [place] [id number] * (ABNORMAL) HEMOGLOBIN A1C (03/06/2020 19:26 EDT) Hemoglobin A1c 10.4(H) <5.7 % 03/07/2020 8:23 EDT [facility] Comment: Glycemic [...] Avg Glucose 252 mg/dL 0 8:23 EDT [facility] Comment:The eAG represents t he A1c result expressed as average glucose in mg/dL. Blood VENOUS BLOOD / Unknown Venipuncture / Unknown 03/06/2020 19:26 EDT 03/06/2020 19:48 EDT Catherine Booth MD CHEMISTRY & BLOOD GAS ORDERABLES Performing Organization Address [facility] Co de Phone Number [facility] [address] [place] [address] * (ABNORMAL) SED. RATE:WESTERGREN (03/06/2020 19:26 EDT) Sed Rate 25(H) 0 - 20 mm/hr 03/06/2020 23:03 EDT [facility] Blood VENOUS BLOOD / Unknown Venipuncture / Unknown 03/06/2020 19:26 EDT 03/06/2020 19:48 EDT Siobhan Hare PA-C HEMATOLOGY & PF4 ORDERABLES Performing Organization Address City/[facility]/ZIP Co de Phone Number [facility] [address] [place] [address] * (ABNORMAL) C REACTIVE PROTEIN (03/06/2020 19:26 EDT) C-Reactive Protein 27.7(H) <10.0 mg/L 03/06/2020 20:12 EDT [facility] Blood VENOUS BLOOD / Unknown Venipuncture / Unknown 03/06/2020 19:26 EDT 03/06/2020 19:48 EDT Siobhan Hare PA-C CHEMISTRY & BLOOD GAS ORDERABLES [facility] [address] [place] [address] * (ABNORMAL) COMPREHENSIVE METABOLIC PANEL (CMP) (03/06/2020 19:26 EDT) Sodium 139 136 - 145 mEq/L 03/06/2020 20:12 [facility] Potassium 4.2 3.5 - 5.0 mEq/L 03/06/2020 20:12 [facility] Chloride 101 96 - 110 mEq/L 03/06/2020 20:12 [facility] CO2 Total 27 22 - 32 mEq/L 03/06/2020 20:12 [facility] Glucose 186(H) 70 - 100 mg/dL 03/06/2020 20:12 [facility] BUN 13 10 - 26 mg/dL 03/06/2020 20:12 [facility] Creatinine 0.49(L) 0.52 - 1.04 mg/dL 03/06/2020 20:12 [facility] eGFR 128 >60 mL/min/1.7 3m2 03/06/2020 20:12 [facility] Comment:eGFR calculated gil curtis CKD-EPI equation for non- Americans. Multiply eGFR by 1.16 for patients. Total Protein 7.4 6.3 - 8.2 g/dL 03/06/2020 20:12 [facility] Albumin 4.2 3.4 - 4.9 g/dL 03/06/2020 20:12 [facility] Alkaline Phosphatase 108 38 - 126 U/L 03/06/2020 20:12 [facility] AST 18 15 - 46 U/L 03/06/2020 20:12 [facility] ALT 12 <35 U/L 03/06/2020 20:12 [facility] Bilirubin, Total <0.5 <1.4 mg/dL 03/06/20 20 20:12 [facility] Calcium 9.9 8.5 - 10.5 mg/dL 03/06/2020 20:12 T [facility] Calculated Calcium 9.7 8.5 - 10.5 mg/dL 03/06/2020 20:12 [facility] Blood VENOUS BLOOD / Unknown Venipuncture / Unknown 03/06/2020 19:26 EDT 03/06/2020 19:48 EDT Siobhan Hare PA-C CHEMISTRY & BLOOD GAS ORDERABLES [facility] [address] [place] [address] * (ABNORMAL) COMPLETE BLOOD COUNT AND DIFFERENTIAL (03/06/2020 19:26 EDT) WBC 16.83(H) 4.00 - 12.40 K/cmm 03/06/2020 19:57 [facility] RBC 4.66 3.86 - 5.04 M/cmm 03/06/2020 19:57 [facility] Hemoglobin 14.1 11.6 - 15.2 gm/dL 03/06/2020 19:57 [facility] HCT 40.6 34.9 - 44.4 % 03/06/2020 19:57 [facility] MCV 87 81 - 98 fl 03/06/2020 19:57 [facility] MCH 30.3 26.7 - 33.3 pg 03/06/2020 19:57 [facility] MCHC 34.7 32.1 - 35.9 gm/dL 03/06/2020 19:57 [facility] RDW-CV 12.2 <14.7 % 03/06/2020 19:57 [facility] RDW-SD 39.2 <50.4 fl 03/06/2020 19:57 [facility] PLT 458(H) 141 - 377 K/cmm 03/06/2020 19:57 [facility] MPV 9.7 9.5 - 12.7 fl 03/06/2020 19:57 [facility] % Neutrophils 62.7 % 03/06/2020 19:57 [facility] % Lymphocytes 27.5 % 03/06/2020 19:57 [facility] % Monocytes 6.8 % 03/06/2020 19:57 [facility] % Eosinophils 2.2 % 03/06/2020 19:57 [facility] % Basophils 0.4 % 03/06/2020 19:57 [facility] % Immature Grans 0.4 % 03/06/20 20 19:57 [facility] Absolute Neutrophils 10.55(H) 2.20 - 8.85 K/cmm 03/06/2020 19:57 [facility] Absolute Lymphocytes 4.62(H) 1.09 - 3.30 K/cmm 03/06/2020 19:57 [facility] Absolute Monocytes 1.15(H) 0.10 - 0.80 K/cmm 03/06/2020 19:57 [facility] Absolute Eosinophils 0.37 0.03 - 0.61 K/cmm 03/06/2020 19:57 [facility] ABS Basophils 0.07 0.01 - 0.11 K/cmm 03/06/2020 19:57 [facility] Absolute Immature Grans 0.07(H) 0.00 - 0.06 K/cmm 03/06/2020 19:57 [facility] Type of Differential: Auto 03/06/2020 19:57 [facility] Blood VENOUS BLOOD / Unknown Venipuncture / Unknown 03/06/2020 19:26 EDT 03/06/2020 19:48 EDT Siobhan Hare PA-C PACKAGES & D NA PROBE ORDERABLES [facility] [address] [place] [address] documented in this encounter Visit Diagnoses Diagnosis Osteomyelitis of great toe of left foot (HCC-CMS)- Primary Diabetic foot ulcer ([facility] [...] Huston RN) 0852 (Given - Provider: Jesica Snady RN)1200 (Canceled Entry - Provider: Batch Job [...]
--- OUTSIDE RECORDS SUMMARY | 2024-02-10 01:25 | XMS_ITS | Encounter Summary ---
Author Organization [facility] Address [address] [place] [address] Care Team Providers Care Cupola Tender Name Role Phone Unavailable Primary Care Provider Unavailabl e Reason for Visit * Reason Onset Date Comments Follow-up 03/05/2020 Encounter Details Date Type Department Care Team (Late st Contact Info) Description 03/05/2020 Telephone [facility] Adult Primary Care - [address] [phone] Tonja Alejandro PA-C [facility] [address] [place] [phone] Follow-up Social History Tobacco Use Types [...] [facility] Adult Primary Care - [address] 365001 Carrington Calderon MD 1 [facility] 1 [place] [address] 02/27/2024 8:30 EDT Telemedicine [facility] Sleep Program - [address] 333491 Dwight Colbert [address] [place] [address] [phone] 02/29/2024 10:30 EDT Appointment [facility] Radiology Nuclear Medicine and PET - [address] [phone] 02/29/2024 14:30 EDT Appointment [facility] Radiology Nuclear Medicine and PET - [address] [phone] 03/01/2024 8:00 EDT Appointment [facility] Radiology Nuclear Medicine and PET - [address] [id number] 03/01/2024 9:30 EDT Appointment [facility] Radiology Nuclear Medicine and PET - [address] 015121 documented as of this encounter Visit Diagnoses Not on filedocumented in this encounter
--- OUTSIDE RECORDS SUMMARY | 2024-02-10 01:25 | XMS_ITS | Encounter Summary ---
Author Organization [facility] Address [address] [place] [address] Care Team Providers Care Assembler Equipment Name Role Phone Unavailable Primary Care Provider Unavailabl e Encounter Details Date Type Department Care Team ([facility] Contact Info) Description 03/21/2020 Documentation [address] [facility] - [address] [place] [address] Karthikeyan Crook, RN [address] [place] [address] Social History Tobacco Use Types Packs/Day Years [...] Notes * Karthikeyan Crook, MARCELO - 03/21/2020 2381 EDT Patient: Cristy Luo is a 35 [...] CROOK RN 03/21/2020 14:10 * [place], [facility] - 03/21/2020 0089 EDT Patient: Cristy Luo is a 35 [...] [facility] - [address] 647011 Carrington Calderon MD 1 [facility] 1 [place] [address] 02/27/2024 8:30 EDT Telemedicine [facility] Sleep Program - [address] 152971 Dwight Colbert [address] [place] [phone] 02/29/2024 10:30 EDT Appointment [facility] Radiology Nuclear Medicine and PET - [address] 675171 02/29/2024 14:30 EDT Appointment [facility] Radiology Nuclear Medicine and PET - [address] [address] 03/01/2024 8:00 EDT [facility]ointment [facility] Radiology Nuclear Medicine and PET - [address] [address] 03/01/2024 9:30 EDT [facility]ointment [facility] Radiology Nuclear Medicine and PET - [address] [address] documented as of this encounter Visit Diagnoses Not on filedocumented in this encounter
--- OUTSIDE RECORDS SUMMARY | 2024-02-10 01:25 | XMS_ITS | Encounter Summary ---
Author Organization [facility] Address [address] [place] [address] Care Team Providers Care Dealmaker Name Role Phone Unavailable Primary Care Provider Unavailabl e Reason for Visit * Reason Onset Date Comments Wound Infection 03/04/2020 Toe Pain 03/04/2020 Encounter Details Date Type Department Care Team (Late st Contact Info) Description 03/04/2020 Telephone [facility] Adult Primary Care [address] [address] Tonja Alejandro PA-C [address] [place] [address] [place] [phone] Wound Infection; Toe Pain Social History [facility] - [address] [address] Carrington Calderon MD 1 [facility] 1 [place] [address] 02/27/2024 8:30 EDT Telemedicine [facility] Sleep Program - [address] [address] Dwight Colbert [address] [place] [phone] 02/29/2024 10:30 EDT Appointment [facility] Radiology Nuclear Medicine and PET [address] [id number] 02/29/2024 14:30 EDT Appointment [facility] Radiology Nuclear Medicine and PET [address] [id number] 03/01/2024 8:00 EDT Appointment [facility] Radiology Nuclear Medicine and PET [address] [id number] 03/01/2024 9:30 EDT Appointment [facility] Radiology Nuclear Medicine and PET [address] [phone] documented as of this encounter Visit Diagnoses Not on filedocumented in this encounter
--- OUTSIDE RECORDS SUMMARY | 2024-02-10 01:25 | XMS_ITS | Encounter Summary ---
Author Organization [facility] Address [address] [place] [address] Care Team Providers Care Solution Design And Analysis Manager Name Role Phone Unavailable Primary Care [...] [facility] Adult Primary Care - [address] [phone] Carrington Calderon MD [address] [phone] 02/27/2024 8:30 EDT Telemedicine [facility] Sleep Program - [address] [address] Dwight Colbert [address] [place] [address] [phone] 02/29/2024 10:30 EDT Appointment [facility] Radiology Nuclear Medicine and PET - [address] [phone] 02/29/2024 14:30 EDT Appointment [facility] Radiology Nuclear Medicine and PET - [address] 782171 03/01/2024 8:00 EDT Appointment [facility] Radiology Nuclear Medicine and PET - [address] [id number] 03/01/2024 9:30 EDT Appointment [facility] Radiology Nuclear Medicine and PET - [address] [address] documented as of this encounter Visit Diagnoses Not on filedocumented in this encounter
--- OUTSIDE RECORDS SUMMARY | 2024-02-10 01:25 | XMS_ITS | Encounter Summary ---
Author Organization [facility] Address [address] [place] [address] Care Team Providers Care Outcomes Analyst Name Role Phone Unavailable Primary Care Provider Unavailabl e Reason for Visit * Reason Comments Foot Ulcer pt has had foot ulce r for 2.5 mo on left great toe, sent here by primary Encounter Details Date Type Department Care Team (Late st Contact Info) Description 03/04/2020 14:31 EDT - 03/04/2020 16:32 EDT Emergency [facility] Emergency Department - [address] [address] Mayank Cruz MD 111 [facility], Level 1 [place] [address] 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 * Diabetic Foot Ulcer ([facility]) documented in this encounter Medications at Time [...] at the [facility] on 03/04/2020 Scribe Attestation: This documentation [...] Stable * Eryn Lunsford RN - 03/04/2020 6069 EDT Patient to ED with c/o worsening [...] [facility] Adult Primary Care - [address] 146321 Carrington Calderon MD [address] [address] 02/27/2024 8:30 EDT Telemedicine [facility] Sleep Program - [address] 449951 Dwight Colbert [address] [place] [address] [phone] 02/29/2024 10:30 EDT Appointment [facility] Radiology Nuclear Medicine and PET [address] [phone] 02/29/2024 14:30 EDT Appointment [facility] Radiology Nuclear Medicine and [address] [phone] 03/01/2024 8:00 EDT Appointment [facility] Radiology Nuclear Medicine and PET [address] [phone] 03/01/2024 9:30 EDT Appointment [facility] Radiology Nuclear Medicine and PET [address] [phone] documented as of this encounter Procedures Procedure [...] fascia. Type II osnaviculare. Scott Harrington MD [facility] [place] [facility]AGI NG ORDERABLES * XR TOE [...] ofthe great toe noted. Scott Harrington MD [facility] [place] [facility]AGI NG ORDERABLES * BACTERIAL CULTURE, BLOOD (03/04/2020 15:20 EDT) Organism ID No Growth at 5 days 03/09/2020 15:45 EDT [facility] Blood VENOUS BLOOD / Unknown Blood Culture / Unknown 03/04/2020 15:20 EDT 03/04/2020 15:38 EDT Scott Harrington MD MICROBIOLOGY - GENER AL ORDERABLES Performing Organization Address [facility] Co de Phone Number [facility] [address] [place] [address] * (ABNORMAL) GLUCOSE, SERUM (03/04/2020 15:03 EDT) Glucose 273(H) 70 - 100 mg/dL 03/04/2020 15:40 EDT [facility] Blood VENOUS BLOOD / Unknown Venipuncture / Unknown 03/04/2020 15:03 EDT 03/04/2020 15:11 EDT Scott Harrington MD CHEMISTRY & BLOOD GA S ORDERABLES Performing Organization Address [facility] de Phone Number [facility] [address] [place] [address] * (ABNORMAL) CREATININE (03/04/2020 15:03 EDT) Creatinine 0.41(L) 0.52 - 1.04 mg/dL 03/04/2020 15:40 EDT [facility] eGFR 135 >60 mL/min/1.7 3m2 03/04/2020 15:40 EDT [facility] Comment:eGFR calculated gil curtis CKD-EPI equation for non- Americans. Multiply eGFR by 1.16 for patients. Blood VENOUS BLOOD / Unknown Venipuncture / Unknown 03/04/2020 15:03 EDT 03/04/2020 15:11 EDT Scott Harrington MD CHEMISTRY & BLOOD GA S ORDERABLES Performing Organization Address [facility]/ZIP Co de Phone Number [facility] [address] [place] [address] * BUN (03/04/2020 15:03 EDT) [facility] BUN 13 10 - 26 mg/dL 03/04/2020 15:43 EDT [facility] Comment: Slight hemolysis identified, interpret with caution as results may be affected due to hemolysis. Blood VENOUS BLOOD / Unknown Venipuncture / Unknown 03/04/2020 15:03 EDT 03/04/2020 15:11 EDT Scott Harrington MD CHEMISTRY & BLOOD GA S ORDERABLES [facility] [address] [place] [address] * ELECTROLYTES (03/04/2020 15:03 EDT) [facility] Sodium 140 136 - 145 mEq/L 03/04/2020 15:43 EDT [facility] Potassium 4.3 3.5 - 5.0 mEq/L 03/04/2020 15:43 EDT [facility] Comment: Slight hemolysis identified, interpret with caution as hemolysis will elevate potassium result. NOTE: Interpret with caution. Prolonged sample storage may alter the result. Chloride 99 96 - 110 mEq/L 03/04/2020 15:43 EDT [facility] CO2 Total 30 22 - 32 mEq/L 03/04/2020 15:43 EDT [facility] Comment: NOTE: Interpret with caution. Prolonged sample storage may alter the result. Blood VENOUS BLOOD / Unknown Venipuncture / Unknown 03/04/2020 15:03 EDT 03/04/2020 15:11 EDT Scott Harrington MD CHEMISTRY & BLOOD GA S ORDERABLES Performing Organization Address City/[facility]/ZIP Co de Phone Number [facility] [address] [place] [address] * (ABNORMAL) SED. RATE:WESTERGREN (03/04/2020 15:03 EDT) [facility] Sed Rate 54(H) 0 - 20 mm/hr 03/04/2020 16:19 EDT [facility] Blood VENOUS BLOOD / Unknown Venipuncture / Unknown 03/04/2020 15:03 EDT 03/04/2020 15:11 EDT Scott Harrington MD HEMATOLOGY & PF4 ORD ERABLES Performing Organization Address [facility] Co de Phone Number [facility] [address] [place] [address] * (ABNORMAL) C REACTIVE PROTEIN (03/04/2020 15:03 EDT) C-Reactive Protein 33.5(H) <10.0 mg/L 03/04/2020 15:40 EDT [facility] Blood VENOUS BLOOD / Unknown Venipuncture / Unknown 03/04/2020 15:03 EDT 03/04/2020 15:11 EDT Scott Harrington MD CHEMISTRY & BLOOD GA S ORDERABLES Performing Organization Address [facility] de Phone Number [facility] [address] [place] [address] * (ABNORMAL) COMPLETE BLOOD COUNT (03/04/2020 15:03 EDT) WBC 14.64(H) 4.00 - 12.40 K/cmm 03/04/2020 15:30 EDT [facility] RBC 4.58 3.86 - 5.04 M/cmm 03/04/2020 15:30 EDT [facility] Hemoglobin 14.1 11.6 - 15.2 gm/dL 03/04/2020 15:30 EDT [facility] HCT 40.0 34.9 - 44.4 % 03/04/2020 15:30 EDT [facility] MCV 87 81 - 98 fl 03/04/2020 15:30 EDT [facility] MCH 30.8 26.7 - 33.3 pg 03/04/2020 15:30 EDT [facility] MCHC 35.3 32.1 - 35.9 gm/dL 03/04/2020 15:30 EDT [facility] RDW-CV 12.3 <14.7 % 03/04/2020 15:30 EDT [facility] RDW-SD 39.5 <50.4 fl 03/04/2020 15:30 EDT [facility] PLT 414(H) 141 - 377 K/cmm 03/04/2020 15:30 EDT [facility] MPV 9.8 9.5 - 12.7 fl 03/04/2020 15:30 EDT [facility] Blood VENOUS BLOOD / Unknown Venipuncture / Unknown 03/04/2020 15:03 EDT 03/04/2020 15:11 EDT Scott Harrington MD HEMATOLOGY & PF4 ORD ERABLES [facility] [address] [place] [address] * HOLD SST (03/04/2020 15:03 EDT) Hold Hold 03/04/2020 16:15 EDT [facility] Blood VENOUS BLOOD / Unknown Venipuncture / Unknown 03/04/2020 15:03 EDT 03/04/2020 15:11 EDT Mayank Cruz MD LAB INFO SERVICE AND SUPPORT & PHONE RESULT Performing Organization Address City/[facility]/ZIP Co de Phone Number [facility] [address] [place] [address] * HOLD LAVENDER TOP (03/04/2020 15:03 EDT) Hold Hold 03/04/2020 16:15 EDT [facility] Blood VENOUS BLOOD / Unknown Venipuncture / Unknown 03/04/2020 15:03 EDT 03/04/2020 15:11 EDT Mayank Cruz MD LAB INFO SERVICE AND SUPPORT & PHONE RESULT Performing Organization Address City/[facility]/ZIP Co de Phone Number [facility] [address] [place] [address] * HOLD GREEN TOP (03/04/2020 15:03 EDT) Hold Hold 03/04/2020 16:15 EDT [facility] Blood VENOUS BLOOD / Unknown Venipuncture / Unknown 03/04/2020 15:03 EDT 03/04/2020 15:11 EDT Mayank Cruz MD LAB INFO SERVICE AND SUPPORT & PHONE RESULT [facility] [address] [place] [address] * HOLD BLUE TOP (03/04/2020 15:03 EDT) Hold Hold 03/04/2020 16:15 EDT [facility] Blood VENOUS BLOOD / Unknown Venipuncture / Unknown 03/04/2020 15:03 EDT 03/04/2020 15:11 EDT Mayank Cruz MD LAB INFO SERVICE AND SUPPORT & PHONE RESULT Performing Organization Address City/[facility] Co de Phone Number [facility] [address] [place] [address] documented in this encounter Visit Diagnoses Diagnosis 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
--- OUTSIDE RECORDS SUMMARY | 2024-02-10 01:25 | XMS_ITS | Encounter Summary ---
Author Organization [facility] Address [address] [place] [address] Care Team Providers Care Lime Boiler Name Role Phone Unavailable Primary Care Provider [facility] - [address] 468301 Carrington Calderon MD [address] [address] 02/27/2024 8:30 EDT Telemedicine [facility] Sleep Program - [address] [address] Dwight Colbert [address] [place] [phone] 02/29/2024 10:[address] [facility] Radiology Nuclear Medicine and PET [address] [phone] 02/29/2024 14:[address] [facility] Radiology Nuclear Medicine and PET [address] [id number] 03/01/2024 8:[address] [facility] Radiology Nuclear Medicine and PET [address] [id number] 03/01/2024 9:[address] [facility] Radiology Nuclear Medicine and PET [address] [phone] documented as of this encounter Visit Diagnoses Not on filedocumented in this encounter
--- OUTSIDE RECORDS SUMMARY | 2024-02-10 01:25 | XMS_ITS | Encounter Summary ---
Author Organization [facility] Address [address] [place] [address] Care Team Providers Care Director Of Cloud Services Name Role Phone Unavailable Primary Care Provider Unavailabl e Reason for Visit * Reason Onset Date Comments Home Health 03/25/2020 Encounter Details Date Type Department Care Team (Late st Contact Info) Description 03/25/2020 Telephone [facility] Adult Primary Care - [address] [phone] Tonja Alejandro PA-C [facility] [address] [place] [phone] Home Health Social History Tobacco Use [...] - 03/25/2020 1606 EDT Kylah called from [facility] stating Patients Heart Rate has been elevated at 100-120 per min documented in this encounter Plan of Treatment Upcoming Encounters Date Type Department Care Team (Late st Contact Info) Description 02/21/2024 9:45 EDT Office Visit [facility] Adult Primary Care - [address] 377251 Carrington Calderon MD [address] [phone] 02/27/2024 8:30 EDT Telemedicine [facility] Sleep Program - [address] [address] Dwight Colbert [address] [place] [address] 02/29/2024 10:30 EDT Appointment [facility] Radiology Nuclear Medicine and PET - [address] [address] 02/29/2024 14:30 EDT Appointment [facility] Radiology Nuclear Medicine and PET - [address] [address] 03/01/2024 8:00 EDT Appointment [facility] Radiology Nuclear Medicine and PET - [address] [phone] 03/01/2024 9:30 EDT Appointment [facility] Radiology Nuclear Medicine and PET - [address] [phone] documented as of this encounter Visit Diagnoses Not on filedocumented in this encounter
--- OUTSIDE RECORDS SUMMARY | 2024-02-10 01:25 | XMS_ITS | Encounter Summary ---
Author Organization [facility] Address [address] [place] [address] Care Team Providers Care Caterer'S Aide Name Role Phone Unavailable Primary Care Provider Unavailabl e Reason for Visit * Reason Comments Telemedicine Video Visit Sore left great toe Foot Swelling Encounter Details Date Type Department Care Team (Late st Contact Info) Description 03/06/2020 16:00 EDT Telemedicine [facility] Adult Primary Care - [address] [address] Moshe Ferrer MD 1 [facility] Level 1 [place] [phone] Cellulitis of great toe of left foot [...] with a trained counselor. Tobacco Counseling in [facility] offers free counseling services to residents who are ready to cut back or quit using tobacco. Services include: phone coaching (5-706-IWZI-NOW), online tools and support for those who would like to make changes on their own (www.[employer].org), as well as in-person group workshops. Free nicotine replacement therapy is available through all of these resources. To learn more about your options visit www.[employer].org or call 8-786-FVDS-NOW ( ). To speak with an in-person tobacco counselor in [facility] call, [phone]. [place] Resident, please visit: [email or web address]/ I hope you quit smoking. I think [...] and depression ??? Type 2 diabetes mellitus ([facility]) ??? Chronic left ear pain ??? Family [...] infection can be identified. Moshe Ferrer MD hop sorter The concept of ???Telemedicine?? has been described [...] or mental health care. Moshe Ferrer MD hop sorter documented in this encounter Plan of Treatment Upcoming Encounters Date Type Department Care Team (Late st Contact Info) Description 02/21/2024 9:45 EDT Office Visit [facility] Adult Primary Care - [address] [phone] Carrington Calderon MD [address] [phone] 02/27/2024 8:30 EDT Telemedicine [facility] Sleep Program - [address] [address] Dwight Colbert [address] [place] [address] [phone] 02/29/2024 10:30 EDT [facility] Radiology Nuclear Medicine and PET - [address] [phone] 02/29/2024 14:30 EDT Appointment [facility] Radiology Nuclear Medicine and PET - [address] [phone] 03/01/2024 8:00 EDT Appointment [facility] Radiology Nuclear Medicine and PET - [address] 624181 03/01/2024 9:30 EDT [facility]ment [facility] Radiology Nuclear [place] [address] documented as of this encounter Visit Diagnoses Diagnosis Cellulitis of great toe of left foot- Primary Cellulitis and abscess of toe, unspecified documented in this encounter
--- OUTSIDE RECORDS SUMMARY | 2024-02-10 01:25 | XMS_ITS | Encounter Summary ---
Author Organization [facility] Address [address] [place] [address] Care Team Providers Care College Sports Assistant Name Role Phone Unavailable Primary Care Provider Unavailabl e Reason for Visit * Reason Comments Telemedicine Video Visit Encounter Details Date Type Department Care Team (Late st Contact Info) Description 2020 13:00 EDT Telemedicine [facility] Infectious Disease - [address] [phone] Tonja Plascencia, GUSTAVO 111 [facility], Level 5 [place] [address] Diabetic foot infection ([facility]) (Primary Dx) Social History Tobacco Use Types [...] Tonja Plascencia ?? Patient location: [facility]/town, State: [place] Estimated driving distance from [place]: 25 miles. Demographics HPI: Cristy Luo [...] occurring daily. Missed her appointment with Dr. Nvaarro today, she will call to set that [...] Visit [facility] Adult Primary Care - [address] [phone] Carrington Calderon MD [address] [phone] 02/27/2024 8:30 EDT Telemedicine [facility] Sleep Program - [address] 211761 Dwight Colbert [address] [place] [address] [phone] 02/29/2024 10:30 EDT Appointment [facility] Radiology Nuclear Medicine and PET - [address] [phone] 02/29/2024 14:30 EDT Appointment [facility] Radiology Nuclear Medicine and PET - [address] [phone] 03/01/2024 8:00 EDT Appointment [facility] Radiology Nuclear Medicine and PET - [facility] [address] [place] [address] 03/01/2024 9:30 EDT Appointment [facility] Radiology Nuclear Medicine and PET - [address] [address] documented as of this encounter Visit Diagnoses Diagnosis Diabetic foot infection ([facility])- Primary Type II or unspecified type diabetes mellitus with other specified manifestations, not stated as uncontrolled documented in this encounter
--- OUTSIDE RECORDS SUMMARY | 2024-02-10 01:26 | XMS_ITS | Encounter Summary ---
Author Organization [facility] Address [address] [place] [address] Care Team Providers Care Eligibility Worker Name Role Phone Unavailable Primary Care Provider Unavailabl e Encounter Details Date Type Department Care Team (Late st Contact Info) Description 11/28/2019 16:00 EDT Phlebotomy Only [facility] Laboratory Services - [address] [address] [facility] Type 2 diabetes mellitus with other specified complication, unspecified whether retirement insulin use ([facility]); Anxiety and depression; Left foot pain [...] [facility] - [address] [phone] Carrington Calderon MD [address] [phone] 02/27/2024 8:30 EDT Telemedicine [facility] Sleep Program - [address] [phone] Dwight Colbert [address] [place] [phone] 02/29/2024 10:30 EDT Appointment [facility] Radiology Nuclear Medicine and PET [address] [phone] 02/29/2024 14:30 EDT Appointment [facility] Radiology Nuclear Medicine and PET [address] [phone] 03/01/2024 8:00 EDT Appointment [facility] Radiology Nuclear Medicine and PET [address] [phone] 03/01/2024 9:30 EDT Appointment [facility] Radiology Nuclear Medicine and PET [address] [phone] documented as of this encounter Procedures Procedure Name Priority Date/Time Associated Diagnosis Comments DIFFERENTIAL, AUTOMATED MANUAL Today 11/28/2019 15:56 EDT Left foot pain THYROID CASCADE Routine 11/28/2019 15:56 EDT Anxiety and depression URINE [id number] RATIO (ACR) Routine 11/28/2019 15:56 EDT Type 2 diabetes mellitus with other specified complication, 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 ([facility]) COMPLETE BLOOD COUNT AND DIFFERENTIAL Routine 11/28/2019 15:56 EDT Left foot pain C REACTIVE PROTEIN Routine 11/28/2019 15 :56 EDT Left foot pain HEMOGLOBIN A1C Routine 11/28/2019 15:56 EDT Type 2 diabetes mellitus with other specified complication, 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 ([facility]) LIPID PROFILE (INCLUDES CHOLESTEROL, TRIGLYCERIDES, HDL, LDL) Routine 11/28/2019 15:56 EDT Type 2 diabetes mellitus with other specified complication, 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 Lymphocytes 37.1 % 11/28/2019 17:50 [facility] % Atypical Lymphocytes 7.7 % 11/28/2019 17:50 [facility] % Monocytes 4.3 % 11/28/2019 17:50 [facility] % Eosinophils 2.6 % 11/28/2019 17:50 [facility] % Basophils 1.7 % 11/28/2019 17:50 [facility] Absolute Neutrophils 6.57 2.20 - 8.85 K/cmm 11/28/2019 17:50 [facility] Absolute Bands 0.13 K/cmm 11/28/2019 17:50 [facility] Absolute Lymphocytes 5.33(H) 1.09 - 3.30 K/cmm 11/28/2019 17:50 EDT [facility] Absolute Atypical Lymphocytes 1.11 K/cmm 11/28/2019 17:50 [facility] Absolute Monocytes 0.62 0.10 - 0.80 K/cmm 11/28/2019 17:50 [facility] Absolute Eosinophils 0.37 0.03 - 0.61 K/cmm 11/28/2019 17:50 [facility] ABS Basophils 0.24(H) 0.01 - 0.11 K/cmm 11/28/2019 17:50 EDT [facility] Blood VENOUS BLOOD / Unknown Venipuncture / Unknown 11/28/2019 15:56 EDT 11/28/2019 15:56 EDT Tonja Alejandro PA-C HEMATOLOGY & PF4 ORDERABLES [facility] [address] [place] [address] * (ABNORMAL) C REACTIVE PROTEIN (11/28/2019 15:56 EDT) C-Reactive Protein 10.6(H) <10.0 mg/L 11/28/2019 17:12 EDT [facility] Blood VENOUS BLOOD / Unknown Venipuncture / Unknown 11/28/2019 15:56 EDT 11/28/2019 15:56 EDT Tonja Alejandro PA-C CHEMISTRY & BLOOD GAS ORDERABLES [facility] [address] [place] [address] * (ABNORMAL) COMPREHENSIVE METABOLIC PANEL (CMP) (11/28/2019 15:56 EDT) Sodium 134(L) 136 - 145 mEq/L 11/28/2019 17:12 [facility] Potassium 4.2 3.5 - 5.0 mEq/L 11/28/2019 17:12 [facility] Chloride 100 96 - 110 mEq/L 11/28/2019 17:12 [facility] CO2 Total 28 22 - 32 mEq/L 11/28/2019 17:12 [facility] Glucose 301(H) 70 - 100 mg/dL 11/28/2019 17:12 [facility] BUN 14 10 - 26 mg/dL 11/28/2019 17:12 [facility] Creatinine 0.57 0.52 - 1.04 mg/dL 11/28/2019 17:12 [facility] eGFR 121 >60 mL/min/1.7 3m2 11/28/2019 17:12 [facility] Comment:eGFR calculated gil curtis CKD-EPI equation for non- Americans. Multiply eGFR by 1.16 for patients. Total Protein 7.0 6.3 - 8.2 g/dL 11/28/2019 17:12 [facility] Albumin 3.9 3.4 - 4.9 g/dL 11/28/2019 17:12 [facility] Alkaline Phosphatase 100 38 - 126 U/L 11/28/2019 17:12 [facility] AST 17 15 - 46 U/L 11/28/2019 17:12 [facility] ALT 14 <35 U/L 11/28/2019 17:12 [facility] Bilirubin, Total <0.5 <1.4 mg/dL 11/28/19 20 17:12 [facility] Calcium 9.8 8.5 - 10.5 mg/dL 11/28/2019 17:12 [facility] Calculated Calcium 9.9 8.5 - 10.5 mg/dL 11/28/2019 17:12 [facility] Blood VENOUS BLOOD / Unknown Venipuncture / Unknown 11/28/2019 15:56 EDT 11/28/2019 15:56 EDT Tonja Alejandro PA-C CHEMISTRY & BLOOD GAS ORDERABLES [facility] [address] [place] [address] * (ABNORMAL) COMPLETE BLOOD COUNT AND DIFFERENTIAL (11/28/2019 15:56 EDT) WBC 14.38(H) 4.00 - 12.40 K/cmm 11/28/2019 17:04 [facility] RBC 4.69 3.86 - 5.04 M/cmm 11/28/2019 17:04 [facility] Hemoglobin 14.3 11.6 - 15.2 gm/dL 11/28/2019 17:04 [facility] HCT 40.8 34.9 - 44.4 % 11/28/2019 17:04 [facility] MCV 87 81 - 98 fl 11/28/2019 17:04 [facility] MCH 30.5 26.7 - 33.3 pg 11/28/2019 17:04 [facility] MCHC 35.0 32.1 - 35.9 gm/dL 11/28/2019 17:04 [facility] RDW-CV 12.0 <14.7 % 11/28/2019 17:04 [facility] RDW-SD 38.4 <50.4 fl 11/28/2019 17:04 [facility] PLT 414(H) 141 - 377 K/cmm 11/28/2019 17:04 [facility] MPV 10.1 9.5 - 12.7 fl 11/28/2019 17:04 [facility] Type of Differential: Manual 11/28/2019 17:04 [facility] Blood VENOUS BLOOD / Unknown Venipuncture / Unknown 11/28/2019 15:56 EDT 11/28/2019 15:56 EDT Tonja Alejandro PA-C PACKAGES & D NA PROBE ORDERABLES Performing Organization Address City/[facility]/ZIP Co de Phone Number [facility] [address] [place] [address] * (ABNORMAL) HEMOGLOBIN A1C (11/28/2019 15:56 EDT) Hemoglobin A1c 10.3(H) <5.7 % 11/29/2019 9:15 EDT [facility] Comment: Glycemic Status [...] Avg Glucose 249 mg/dL 0 9:15 EDT [facility] Comment: The eAG represents the A1c result expressed as average glucose in mg/dL. Blood VENOUS BLOOD / Unknown Venipuncture / Unknown 11/28/2019 15:56 EDT 11/28/2019 15:56 EDT Tonja Alejandro PA-C CHEMISTRY & BLOOD GAS ORDERABLES [facility] [address] [place] [address] * THYROID CASCADE (11/28/2019 15:56 EDT) TSH 0.64 0.47 - 4.68 uIU/mL 11/28/2019 17:44 EDT [facility] Blood VENOUS BLOOD / Unknown Venipuncture / Unknown 11/28/2019 15:56 EDT 11/28/2019 15:56 EDT Narrative [facility] - 11/28/2019 17:44 EDT NOTE: TSH Brewster is not recommended for patients in which pituitary or hypothalamic disorders are suspected. The results of this assay can be falsely lowered due to the consumption of Biotin. Tonja Alejandro PA-C CHEMISTRY & BLOOD GAS ORDERABLES [facility] [address] [place] [address] * LIPID PROFILE (INCLUDES CHOLESTEROL, TRIGLYCERIDES, HDL, LDL) (11/28/2019 15:56 EDT) Cholesterol 179 See Note mg/dL 11/28/2019 17:12 EDT [facility] Comment: Acceptable: ?<200 mg/dL Borderline High: 200-239 mg/dL High: ?> or = 240 mg/dL HDL 38 See Note mg/dL 11/28/2019 17:12 T [facility] Comment: Low: ? <40 mg/dL Normal: ??40-60 mg/dL High: ?>60 mg/dL LDL, Calculated 61 See Note mg/dL 11/28/2019 17:12 [facility] Comment: Optimal: ? <100 mg/dL Near Optimal: ?100-129 mg/dL Borderline High: 130-159 mg/dL High: ?160-189 mg/dL Very High: ? > or = 190 mg/dL Triglyceride 398 See Note mg/dL 11/28/2019 17:12 [facility] Comment: Normal: ? <150 mg/dL Borderline High: ??150 - 199 mg/dL High: ? 200 - 499 mg/dL Very High: ?> or = 500 mg/dL Chol/HDL Ratio 4.7 See Note 11/28/2019 17:12 EDT [facility] Comment: No reference range has been established for CHOL/HDL ratio. Non HDL Cholesterol 141 See Note mg/dL 11/28/2019 17:12 EDT [facility] Comment: Desirable: ?<130 mg/dL Borderline High: ??130-159 mg/dL High: ? 160-189 mg/dL Very High: ?> or = 190 mg/dL Blood VENOUS BLOOD / Unknown Venipuncture / Unknown 11/28/2019 15:56 EDT 11/28/2019 15:56 EDT Tonja Alejandro PA-C CHEMISTRY & BLOOD GAS ORDERABLES Performing Organization Address [facility] Co de Phone Number [facility] [address] [place] [address] * (ABNORMAL) ALBUMIN, URINE (11/28/2019 15:56 EDT) Albumin, Urine 11.3 See Note mg/dL 2019 16:47 EDT [facility] Comment: NOTE: Reference range not established Creatinine, Urine 143.1 See Note mg/dL 11/28/2019 16:47 EDT [facility] Comment: NOTE: Reference range not established Lab Urine Albumin to Creatinine Ratio 79(H) <30 ug/mg Creatinine 11/28/2019 16:47 EDT [facility] Comment: Urine Albumin/Creatinine Ratio: Normal: <30 ug/mg Creatinine Moderately increased albuminuria: 30-300 ug/mg Creatinine Severley increased albuminuria: >300 ug/mg Creatinine Urine URINE SPECIMEN OBTAINED BY CLEAN CATCH PROCEDURE / Unknown Urine Collect / Unknown 11/28/2019 15:56 EDT 11/28/2019 15:56 EDT Tonja Alejandro PA-C CHEMISTRY & BLOOD GAS ORDERABLES Performing Organization Address [facility] Co de Phone Number [facility] [address] [place] [address] documented in this encounter Visit Diagnoses Diagnosis Type 2 diabetes mellitus with other specified complication, 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
--- OUTSIDE RECORDS SUMMARY | 2024-02-10 01:26 | XMS_ITS | Encounter Summary ---
Author Organization [facility] Address [address] [place] [address] Care Team Providers Care Searchlight Operator Name Role Phone Unavailable Primary Care Provider Unavailabl e Reason for Visit * Reason Onset Date Comments Update 12/06/2019 Encounter Details Date Type Department Care Team (Late st Contact Info) Description 12/06/2019 Telephone [facility] OBGYN Services - [facility] [address] [place], [place] 201461 Charu Flynn MD [address] [facility], Level [address] [place] [address] Update Social History Tobacco Use [...] [facility] Adult Primary Care - [address] [phone] Carrington Calderon MD [address] [phone] 02/27/2024 8:30 EDT Telemedicine [facility] Sleep Program - [address] [phone] Dwight Colbert [address] [place], [place] [phone] 02/29/2024 10:30 EDT [facility] Radiology Nuclear Medicine and PET - [address] [address] 02/29/2024 14:30 EDT [facility]ointment [facility] Radiology Nuclear Medicine and PET - [address] [address] 03/01/2024 8:00 EDT [facility]ointment [facility] Radiology Nuclear Medicine and PET - [address] [address] 03/01/2024 9:30 EDT Appointment [facility] Radiology Nuclear Medicine and PET - [address] [address] documented as of this encounter Visit Diagnoses Not on filedocumented in this encounter
--- OUTSIDE RECORDS SUMMARY | 2024-02-10 01:26 | XMS_ITS | Encounter Summary ---
Author Organization [facility] Address [address] [place] [address] Care Team Providers Care Director Search Name Role Phone Unavailable Primary Care Provider Unavailabl e Reason for Visit * Reason Onset Date Comments Medication Problem 11/27/2019 Encounter Details Date Type Department Care Team (Late st Contact Info) Description 11/27/2019 Telephone [facility] Adult Primary Care - [address] [phone] Tonja Alejandro PA-C Compact Particle Acceleration [facility] [address] [place] [phone] Medication Problem Social History Tobacco Use [...] [facility] Adult Primary Care - [address] 610161 Carrington Calderon MD 1 [facility] 1 [place] [address] 02/27/2024 8:30 EDT Telemedicine [facility] Sleep Program - [address] [phone] Dwight Colbert [address] [place] [phone] 02/29/2024 10:30 EDT Appointment [facility]ical Center Radiology Nuclear Medicine and PET [address] [address] 02/29/2024 14:30 EDT [facility] [address] 213271 03/01/2024 8:00 EDT Appointment [facility]ical Center Radiology Nuclear Medicine and PET - [address] 240211 03/01/2024 9:[address] [facility] Radiology Nuclear Medicine and PET [address] [phone] documented as of this encounter Visit Diagnoses Not on filedocumented in this encounter Discontinued Medications Medication Sig Discontinue Reason Start Date End Da te insulin glargine (LANTUS SOLOSTAR) 100 unit/mL (3 mL) injection pen Inject 25 Units into the skin at bedtime for 90 days. Reorder 11/26/2019 11/27/2019 documented as of this encounter
--- OUTSIDE RECORDS SUMMARY | 2024-02-10 01:26 | XMS_ITS | Encounter Summary ---
Author Organization [facility] Address [address] [place] [address] Care Team Providers Care Java Tech Lead Name Role Phone Unavailable Primary Care Provider Unavailabl e Encounter Details Date Type Department Care Team (Late st Contact Info) Description 11/28/2019 Orders Only [facility] Radiology - Main [place] [address] [place] [address] Tracey Veloz MD [address] [place], [place] [phone] Social History Tobacco Use Types Packs/Day Years [...] Visit [facility] Adult Primary Care - [address] [address] Carrington Calderon MD [address] [phone] 02/27/2024 8:30 EDT Telemedicine [facility] Sleep Program - [address] 680031 Dwight Colbert [address] [place] [phone] 02/29/2024 10:30 EDT [facility] - [address] 868121 02/29/2024 14:30 EDT [facility] Nuclear [facility] and PET - [address] [phone] 03/01/2024 8:00 EDT Appointment [facility] Radiology Nuclear Medicine and PET [address] 720901 03/01/2024 9:30 EDT Appointment [facility] Radiology Nuclear Medicine and PET [address] [phone] documented as of this encounter Visit Diagnoses Not on filedocumented in this encounter
--- OUTSIDE RECORDS SUMMARY | 2024-02-10 01:26 | XMS_ITS | Encounter Summary ---
Author Organization [facility] Address [address] [place] [address] Care Team Providers Care Night Filler Name Role Phone None, Provider Primary Care Provider Unavailabl e Reason for Visit * Reason Onset Date Comments COVID-19 11/22/2019 Encounter Details Date Type Department Care Team (Late st Contact Info) Description 11/22/2019 Orders Only [facility] OBGYN Services - [address] [address] Susana Tomlinson, RN Sterilization (Primary Dx) Social [facility] [address] [phone] Carrington Calderon MD [address] [phone] 02/27/2024 8:30 EDT Telemedicine [facility] Sleep Program - [address] [phone] Dwight Colbert [address] [place] [phone] 02/29/2024 10:30 EDT Appointment edical Center Radiology Nuclear Medicine and PET - [address] [address] 02/29/2024 14:30 EDT [facility] [address] [phone] 03/01/2024 8:00 EDT Appointment edical [place] Radiology Nuclear Medicine and PET [address] [phone] 03/01/2024 9:30 EDT Appointment [facility] Radiology Nuclear Medicine and PET [address] [phone] documented as of this encounter Visit Diagnoses Diagnosis Sterilization- Primary documented in this encounter Care Teams Night Filler Relationship Specialty Start Date End Date None, Provider PCP - General 06/18/19 11/25/19 documented as of this encounter
--- OUTSIDE RECORDS SUMMARY | 2024-02-10 01:26 | XMS_ITS | Encounter Summary ---
Author Organization [facility] Address [address] [place] [address] Care Team Providers Care Ranch Helper Name Role Phone None, Provider Primary Care Provider Unavailabl e Reason for Visit * Reason Onset Date Comments Other 10/16/2019 Follow up. Encounter Details Date Type Department Care Team (Late st Contact Info) Description 10/16/2019 Telephone [facility] OBGYN Services - [address] [address] Jordyn Wolfe, MARCELO Other (Follow up.) Social [...] Encounter - Jordyn Wolfe RN - 10/22/2019 1109 EDT Call to patient. This was a follow-up call after patient miscarriage. Patient did speak to social worker masters Elo Diaz who reached out to me [...] needs to speak to nurse or social worker masters. Patient states currently feels well supported and expressed gratitude towards our staff for supporting her also. * Telephone Encounter - Jordyn Wolfe RN - 10/16/2019 1427 EDT Call to social worker masters Lopez Diaz.Asked best number/time to call. documented in this encounter Plan of Treatment Upcoming Encounters Date Type Department Care Team (Late st Contact Info) Description 02/21/2024 9:45 EDT Office Visit [facility] Adult Primary Care - [address] [phone] Carrington Calderon MD 1 [facility] 1 [place] [phone] 02/27/2024 8:30 EDT Telemedicine [facility] Sleep Program - [address] [phone] Dwight Colbert [address] [place] [phone] 02/29/2024 10:30 EDT Appointment [facility]ical Center Radiology Nuclear Medicine and PET - [address] [address] 02/29/2024 14:[address] [facility] [address] [phone] 03/01/2024 8:[address] [facility] [place] [facility] and PET [address] [phone] 03/01/2024 9:30 EDT Appointment [facility] Radiology Nuclear Medicine and PET [address] [phone] documented as of this encounter Visit Diagnoses Not on filedocumented in this encounter Care Teams Ranch Helper Relationship Specialty Start Date End Date None, Provider PCP - General 06/18/19 11/25/19 documented as of this encounter
--- OUTSIDE RECORDS SUMMARY | 2024-02-10 01:26 | XMS_ITS | Encounter Summary ---
Author Organization [facility] Address [address] [place] [address] Care Team Providers Care Blister Rust Eradicator Name Role Phone Unavailable Primary Care Provider Unavailabl e Reason for Visit * Reason Comments Social Work Encounter Details Date Type Department Care Team (Late st Contact Info) Description 11/26/2019 Community Health Team [facility] OBGYN Services - [address] [address] Eryn Diaz Social History Tobacco Use Types [...] zoom meeting link as appt gets closer. [facility] Total Time: 1 hour total 45 min via zoom with pt 15 min charting Referral: n/a Follow up: Date: Thursday, December 19, 2019 Time: 11 AM With: Eryn Diaz Shoemaker Apprentice Location: zoom Status: Active documented in this encounter Plan of Treatment Upcoming Encounters Date Type Department Care Team (Late st Contact Info) Description 02/21/2024 9:45 EDT Office Visit [facility] Adult Primary Care - [address] [phone] Carrington Calderon MD [address] [phone] 02/27/2024 8:30 EDT Telemedicine [facility] Sleep Program - [address] [phone] Dwight Colbert [address] [place] [address] [phone] 02/29/2024 10:30 EDT Appointment [facility] Radiology Nuclear Medicine and PET [address] [phone] 02/29/2024 14:30 EDT Appointment [facility] Radiology Nuclear Medicine and PET - [address] [phone] 03/01/2024 8:00 EDT Appointment [facility] Radiology Nuclear Medicine and PET [address] [phone] 03/01/2024 9:30 EDT Appointment [facility] Radiology Nuclear Medicine and PET [address] [phone] documented as of this encounter Visit Diagnoses Not on filedocumented in this encounter
--- OUTSIDE RECORDS SUMMARY | 2024-02-10 01:26 | XMS_ITS | Encounter Summary ---
Author Organization [facility] Address [address] [place] [address] Care Team Providers Care Director Clinical Pharmacology Name Role Phone Unavailable Primary Care Provider Unavailabl e Reason for Visit * Reason Comments Telemedicine Video Visit Foot Pain Ankle Pain Encounter Details Date Type Department Care Team (Latest Contact Info) Description 12/28/2019 10:45 EDT Telemedicine [facility] Adult Primary Care - [address] 700551 Teodoro Alejandro PA-C 62 [facility] [address] [place] [address] Encounter for sterilization (Primary Dx); Type 2 diabetes mellitus with hyperosmolarity without coma, with long-term current use of insulin ([facility]); Left foot pain Social History Tobacco Use [...] and ankle. OBGYN: Patient followed up with WEB APPLICATIONS ADMINISTRATOR on 11/02/2019 and a discussion was placed [...] Encounter for sterilization Patient will follow-up with WEB APPLICATIONS ADMINISTRATOR regarding sterilization. Also discussed with patient about possiblevasectomy for her partner. Type 2 diabetes mellitus with hyperosmolarity without coma, with long-term current use of insulin ([facility]) Continue Lantus 30 mg daily. Continue aspart [...] [facility] Adult Primary Care - [address] [phone] Carrington Calderon MD [address] [address] 02/27/2024 8:30 EDT Telemedicine [facility] Sleep Program - [address] 731951 Dwight Colbert [address] [place] [address] [phone] 02/29/2024 10:30 EDT Appointment [facility] Radiology Nuclear Medicine and PET [address] 486221 02/29/2024 14:30 EDT Appointment [facility] Radiology Nuclear Medicine and PET [address] 194121 03/01/2024 8:00 EDT Appointment [facility] Radiology Nuclear Medicine and PET [address] [id number] 03/01/2024 9:30 EDT Appointment [facility] Radiology Nuclear Medicine and PET [address] 241971 documented as of this encounter Visit Diagnoses Diagnosis Encounter for sterilization- Primary Sterilization Type 2 diabetes mellitus with hyperosmolarity without coma, with long-term current use of insulin ([facility]) Left foot pain Pain in limb documented in this encounter
--- OUTSIDE RECORDS SUMMARY | 2024-02-10 01:26 | XMS_ITS | Encounter Summary ---
Author Organization [facility] Address [address] [place] [address] Care Team Providers Care Veterans' Counselor Name Role Phone Unavailable Primary Care Provider Unavailabl e Reason for Visit * Reason Onset Date Comments Labs Only 12/05/2019 Encounter Details Date Type Department Care Team (Late st Contact Info) Description 12/05/2019 Telephone [facility] - [address] 255181 Charu Flynn MD 111 [facility], Level 4 [place] [address] Labs Only Social History Tobacco [...] you can call Pre Op back at [phone]. documented in this encounter Plan of Treatment Upcoming Encounters Date Type Department Care Team (Late st Contact Info) Description 02/21/2024 9:45 EDT Office Visit [facility] Adult Primary Care - [address] 955941 Carrington Calderon MD 1 [facility] 1 [place] [phone] 02/27/2024 8:30 EDT Telemedicine [facility] Sleep Program - [address] 575191 Dwight Colbert [address] [place] [address] [phone] 02/29/2024 10:30 EDT Appointment [facility] Radiology Nuclear Medicine and PET - [address] [address] 02/29/2024 14:30 EDT [facility] Radiology Nuclear Medicine and PET - [address] [address] 03/01/2024 8:00 EDT Appointment [facility] Radiology Nuclear Medicine and PET - [address] [address] 03/01/2024 9:30 EDT Appointment [facility] Radiology Nuclear Medicine and PET - [address] [address] documented as of this encounter Visit Diagnoses Not on filedocumented in this encounter
--- OUTSIDE RECORDS SUMMARY | 2024-02-10 01:26 | XMS_ITS | Encounter Summary ---
Author Organization [facility] Address [address] [place] [address] Care Team Providers Care Local Delivery Driver Name Role Phone None, Provider Primary [...] [facility] Adult Primary Care - [address] 948221 Carrington Calderon MD 1 [facility] 1 [place] [address] 02/27/2024 8:30 EDT Telemedicine [facility] Sleep Program - [address] 312741 Dwight Colbert [address] [place] [address] 308221 02/29/2024 10:30 EDT Appointment [facility] Radiology Nuclear Medicine and PET [address] 316871 02/29/2024 14:30 EDT Appointment [facility] Radiology Nuclear Medicine and PET [address] 387401 03/01/2024 8:00 EDT Appointment [facility] Radiology Nuclear Medicine and PET [address] 718211 03/01/2024 9:30 EDT Appointment [facility] Radiology Nuclear Medicine and PET [address] [phone] documented as of this encounter Visit Diagnoses Not on filedocumented in this encounter Care Teams Local Delivery Driver Relationship Specialty Start Date End Date None, Provider PCP - General 06/18/19 11/25/19 documented as of this encounter
--- OUTSIDE RECORDS SUMMARY | 2024-02-10 01:26 | XMS_ITS | Encounter Summary ---
Author Organization [facility] Address [address] [place] [address] Care Team Providers Care Pit Operator Name Role Phone Unavailable Primary Care [facility] - [address] [address] Carrington Calderon MD [address] [address] 02/27/2024 8:30 EDT Telemedicine [facility] Sleep Program - [address] [address] Dwight Colbert [address] [place] [address] [phone] 02/29/2024 10:30 EDT Appointment [facility] Radiology Nuclear Medicine and PET [address] [id number] 02/29/2024 14:30 EDT Appointment [facility] Radiology Nuclear Medicine and PET [address] [id number] 03/01/2024 8:00 EDT Appointment [facility] Radiology Nuclear Medicine and PET [address] [id number] 03/01/2024 9:30 EDT Appointment [facility] Radiology Nuclear Medicine and PET [address] [id number] documented as of this encounter Visit Diagnoses Not on filedocumented in this encounter
--- OUTSIDE RECORDS SUMMARY | 2024-02-10 01:26 | XMS_ITS | Encounter Summary ---
Author Organization [facility] Address [address] [place] [address] Care Team Providers Care Wind Turbine Installer Name Role Phone Unavailable Primary Care Provider Unavailabl e Reason for Visit * Reason Comments Foot Problem * Consult (Routine/Next Available) - Order Cancelled Specialty Diagnoses / Procedures Referred By Kit goode Referred To Contact Orthopedic Surgery Diagnoses Left foot pain Sore on toe Tonja Alejandro PA-C 62 [facility] [address] [place] [address] [facility] Ortho Foot And Ankle [address] [place] [address] Referral ID Status Reason Start Date Expiration Date Visits Requested Visits Authorized [id number] Order Cancelled Specialty Services Required 11/28/2019 1 1 Encounter Details Date Type Department Care Team (Late st Contact Info) Description 01/01/2020 8:00 EDT Office Visit [facility] Foot & Ankle Program - [facility] [place] [address] Elza Navarro DPM [address] [place] [address] Chronic pain of left ankle (Primary Dx); Ulcerated, foot, left, with fat layer exposed ([facility]); Type 2 diabetes mellitus with diabetic polyneuropathy, with long-term current use of insulin ([facility]) Social History Tobacco Use Types Packs/Day [...] arthritis 09/04/2015 ??? Type 2 diabetes mellitus ([facility]) 09/03/2015 ??? Anxiety and depression 05/12/2010 ??? Migraine with aura and without status migrainosus, not intractable Past Medical History: Diagnosis Date ??? Anxiety ??? Arthritis 12/05/19- Spine- told years ago ??? Diabetes ([facility]) A1c 10.3 on 11/28/2019 ??? History [...] 27 mL 3 ??? lancets One Touch DelSkiin Fundementals or other brand compatible with lancing device [...] around the ulcer. Protective sensation absent via [place] Bella monofilament 0 out of 10. Left [...] with speech recognition software or keyboard data officer techniques. Minor irregularities or keyboarding misprints may be present documented in this encounter Plan of Treatment Upcoming Encounters Date Type Department Care Team (Late st Contact Info) Description 02/21/2024 9:45 EDT Office Visit [facility] Adult Primary Care - [address] 979181 Carrington Calderon MD [address] [address] 02/27/2024 8:30 EDT Telemedicine [facility] Sleep Program - [address] 679301 Dwight Colbert [address] [place] [address] [phone] 02/29/2024 10:30 EDT Appointment [facility] Radiology Nuclear Medicine and PET - [address] [phone] 02/29/2024 14:30 EDT Appointment [facility] Radiology Nuclear Medicine and PET [address] [phone] 03/01/2024 8:00 EDT Appointment [facility] Radiology Nuclear Medicine and PET [address] [phone] 03/01/2024 9:30 EDT Appointment [facility] Radiology Nuclear Medicine and PET [address] [phone] documented as of this encounter Procedures Procedure Name Priority Date/Time Associated Diagnosis Comments XR ANKLE LEFT 3 OR MORE VIEWS Routine 01/01/2020 8:53 EDT Chronic pain of left ankle XR FOOT LEFT 3 OR MORE VIEWS Routine 01/01/2020 8:52 EDT Ulcerated, foot, left, with fat layer exposed ([facility]) Type 2 diabetes mellitus with diabetic polyneuropathy, with long-term current use of insulin ([facility]) documented in this encounter Results [...] Ulcerated, foot, left, with fat layer exposed ([facility]) Type 2 diabetes mellitus with diabetic polyneuropathy, with long-term current use of insulin ([facility]) documented in this encounter Orders Equipment Count Last Ordered Date First Orde red Date GENERIC ORTHO VENDOR DME 1 01/01/2020 documented in this encounter
--- OUTSIDE RECORDS SUMMARY | 2024-02-10 01:26 | XMS_ITS | Encounter Summary ---
Author Organization [facility] Address [address] [place] [address] Care Team Providers Care Bilingual Legal Assistant Name Role Phone Unavailable Primary Care Provider Unavailabl e Reason for Referral * Radiology Services (Routine) - Closed Specialty Diagnoses / Procedures Referred By Contac t Referred To Contact Radiology Diagnoses Left foot pain Sore on toe Procedures MR FOOT W WO CONTRAST LEFT Tonja Alejandro PA-C [address] [place] [phone] Referral ID Status Reason Start Date Expiration Date Visits Re quested Visits Authorized [id number] Closed 11/28/2019 1 1 Reason for Visit * Radiology Services (Routine) - Closed Specialty Diagnoses / Procedures Referred By Contac t Referred To Contact Radiology Diagnoses Left foot pain Sore on toe Procedures MR FOOT W WO CONTRAST LEFT Tonja Alejandro PA-C [address] [place] [phone] Referral ID Status Reason Start Date Expiration Date Visits Re quested Visits Authorized [id number] Closed 11/28/2019 1 1 Encounter Details Date Type Department Care Team (Latest Contact Info) Description 12/05/2019 6:33 EDT - 12/05/2019 10:29 EDT [facility] Radiology MRI - [place] [address] [place] [address] Left foot pain; Sore on toe Discharge [...] [facility] Adult Primary Care - [address] 101971 Carrington Calderon MD [address] [address] 02/27/2024 8:30 EDT Telemedicine [facility] Sleep Program - [address] [address] Dwight Colbert [address] [place] [address] [phone] 02/29/2024 10:30 ED[facility] - [address] [id number] 02/29/2024 14:30 EDT Appointment [facility] Radiology Nuclear Medicine and PET - [address] 729841 03/01/2024 8:00 EDT Appointment [facility] Radiology Nuclear Medicine and PET - [address] [id number] 03/01/2024 9:30 EDT Appointment [facility] Radiology Nuclear Medicine and PET - [address] [address] documented as of this encounter Procedures Procedure [...]
--- OUTSIDE RECORDS SUMMARY | 2024-02-10 01:26 | XMS_ITS | Encounter Summary ---
Author Organization [facility] Address [address] [place] [address] Care Team Providers Care Boot And Shoe Laborer Name Role Phone None, Provider Primary Care Provider Unavailabl e Encounter Details Date Type Department Care Team (Late st Contact Info) Description 11/20/2019 Prep for Procedure [facility] [address] [place], [place] [id number] Pamela Sifuentes MD [address] [place] [phone] Social History Tobacco Use Types Packs/Day [...] [facility] - [address] [address] Carrington Calderon MD [address] [address] 02/27/2024 8:30 EDT Telemedicine [facility] Sleep Program - [address] 044501 Dwight Colbert [address] [place] [address] [phone] 02/29/2024 10:30 EDT Appointment [facility] Radiology Nuclear Medicine and PET [address] 332321 02/29/2024 14:30 EDT Appointment [facility] Radiology Nuclear Medicine and PET [address] [phone] 03/01/2024 8:00 EDT Appointment [facility] Radiology Nuclear Medicine and PET [address] 414171 03/01/2024 9:30 EDT Appointment [facility] Radiology Nuclear Medicine and PET [address] 536381 documented as of this encounter Visit Diagnoses Not on filedocumented in this encounter Care Teams Boot And Shoe Laborer Relationship Specialty Start Date End Date None, Provider PCP - General 06/18/19 11/25/19 documented as of this encounter
--- OUTSIDE RECORDS SUMMARY | 2024-02-10 01:26 | XMS_ITS | Encounter Summary ---
Author Organization [facility] Address [address] [place] [address] Care Team Providers Care Air Boatswain Name Role Phone None, Provider Primary Care Provider Unavailabl e Reason for Visit * Reason Onset Date Comments Pharmacy 10/29/2019 Encounter Details Date Type Department Care Team (Late st Contact Info) Description 10/29/2019 Telephone [facility] - [facility] [address] [place] [address] Monique Gramajo, GUSTAVO [address] [place] [address] Pharmacy Social History Tobacco Use [...] [facility] Adult Primary Care - [place] 1 [place] [address] Carrington Calderon MD 1 [facility] Level 1 [place] [phone] 02/27/2024 8:30 EDT Telemedicine [facility] Sleep Program - [address] [place] [address] [place] [address] Dwight Colbert [address] [place] [address] 02/29/2024 10:30 EDT Appointment [facility] Radiology Nuclear Medicine and PET - [address] [address] 02/29/2024 14:30 EDT Appointment [facility] Radiology Nuclear Medicine and PET - [address] [id number] 03/01/2024 8:00 EDT Appointment [facility] Radiology Nuclear Medicine and PET - [address] 049351 03/01/2024 9:30 EDT Appointment [facility] Radiology Nuclear Medicine and PET - [address] [address] documented as of this encounter Visit Diagnoses Not on filedocumented in this encounter Care Teams Air Boatswain Relationship Specialty Start Date End Date None, Provider PCP - General 06/18/19 11/25/19 documented as of this encounter
--- OUTSIDE RECORDS SUMMARY | 2024-02-10 01:26 | XMS_ITS | Encounter Summary ---
Author Organization [facility] Address [address] [place] [address] Care Team Providers Care Nautical Instrument Mechanic Name Role Phone Unavailable Primary Care Provider Unavailabl e Reason for Visit * Reason Onset Date Comments Results 12/05/2019 Encounter Details Date Type Department Care Team (Late st Contact Info) Description 12/05/[address] [facility] Adult Primary Care - [address] 698691 Tonja Alejandro PA-C [address] [place] [address] [place] [phone] Results Social History Tobacco Use Types [...] Encounter - Tonja Alejandro PA-C - 12/05/2019 7728 EDT I spoke with patient regarding MRI [...] the mild cellulitis. She will contact her SPECIAL DISTRIBUTION CLERK and inform this of them as she [...] [facility] - [address] 225671 Carrington Calderon MD [address] [phone] 02/27/2024 8:30 EDT Telemedicine [facility] Sleep Program - [address] 042661 Dwight Colbert [address] [place] [address] [phone] 02/29/2024 10:30 EDT Appointment [facility] Radiology Nuclear Medicine and PET [address] [id number] 02/29/2024 14:30 EDT Appointment [facility] Radiology Nuclear Medicine and PET [address] 845491 03/01/2024 8:00 EDT Appointment [facility] Radiology Nuclear Medicine and PET - [address] [phone] 03/01/2024 9:30 EDT Appointment [facility] Radiology Nuclear Medicine and PET [address] 407941 documented as of this encounter Visit Diagnoses Not on filedocumented in this encounter
--- OUTSIDE RECORDS SUMMARY | 2024-02-10 01:26 | XMS_ITS | Encounter Summary ---
Author Organization [facility] Address [address] [place] [address] Care Team Providers Care Contact Center Director Name Role Phone Unavailable Primary Care Provider Unavailabl e Reason for Visit * Reason Onset Date Comments Ankle Pain 12/04/2019 Encounter Details Date Type Department Care Team (Late st Contact Info) Description 12/04/2019 Telephone [facility] Adult Primary Care - [address] 016341 Tonja Alejandro PA-C [facility] [address] [place] [phone] Ankle Pain Social History Tobacco Use [...] Encounter - Tonja Alejandro PA-C - 12/04/2019 0100 EDT Spoke with patient on the phone. [...] [facility] Adult Primary Care - [address] 189831 Carrington Calderon MD 1 [facility] 1 [place] [address] 02/27/2024 8:30 EDT Telemedicine [facility] Sleep Program - [address] [place] [address] [place] [address] Sayra Dwight [address] [place] [address] 02/29/2024 10:30 EDT [facility] Radiology Nuclear Medicine and PET - [address] [phone] 02/29/2024 14:30 EDT [facility] Radiology Nuclear Medicine and PET - [address] 691961 03/01/2024 8:00 EDT Appointment [facility] Radiology Nuclear Medicine and PET - [address] [phone] 03/01/2024 9:30 EDT Appointment [facility] Radiology Nuclear Medicine and PET - [address] [phone] documented as of this encounter Visit Diagnoses Not on filedocumented in this encounter
--- OUTSIDE RECORDS SUMMARY | 2024-02-10 01:26 | XMS_ITS | Encounter Summary ---
Author Organization [facility] Address [address] [place] [address] Care Team Providers Care Regional Vice President Surgical Sales Name Role Phone Unavailable Primary Care Provider Unavailabl e Reason for Visit * Reason Onset Date Comments Results 11/30/2019 Encounter Details Date Type Department Care Team (Late st Contact Info) Description 11/30/2019 Telephone [facility] Adult Primary Care - [address] 194671 Tonja Alejandro PA-C [address] [place] [address] [place] [phone] Results Social History Tobacco Use Types [...] [facility] Adult Primary Care - [address] 324481 Carrington Calderon MD 1 [facility] Level 1 [place] [phone] 02/27/2024 8:30 EDT Telemedicine [facility] Sleep Program - [address] [place] [address] [place] [address] Dwight Col[address] [place] [address] 02/29/2024 10:30 EDT [facility]ment [facility] Radiology Nuclear Medicine and PET - [address] [address] 02/29/2024 14:30 EDT [facility] Radiology Nuclear Medicine and PET - [address] [id number] 03/01/2024 8:00 EDT Appointment [facility] Radiology Nuclear Medicine and PET - [address] 064001 03/01/2024 9:30 EDT Appointment [facility] Radiology Nuclear Medicine and PET - [address] 748281 documented as of this encounter Visit Diagnoses Diagnosis Leukocytosis, unspecified type- Primary documented in this encounter
--- OUTSIDE RECORDS SUMMARY | 2024-02-10 01:26 | XMS_ITS | Encounter Summary ---
Author Organization [facility] Address [address] [place] [address] Care Team Providers Care Saw Straightener Name Role Phone None, Provider Primary Care Provider Unavailabl e Reason for Visit * Reason Comments Advice Only patient states I w ant a tubal, cut, tie, burn. I want no more chances of or miscarriage Encounter Details Date Type Department Care Team (Latest Contact Info) Description 11/02/2019 8:15 EDT Initial consult [facility] OBGYN Services - [facility] [address] [place] [address] Patricia Sifuentes MD [address] [place] [phone] Consultation for female sterilization (Primary Dx) [...] 11/02/2019 9:08 Obstetrics & Gynecology, PGY-1 Pager [phone] * Callum Callejas MD - 11/02/2019 0815 [...] [facility] Adult Primary Care - [address] [phone] Carrington Calderon MD [address] [place] [phone] 02/27/2024 8:30 EDT Telemedicine [facility] Sleep Program - [address] 738781 Dwight Colbert [address] [place] [address] [phone] 02/29/2024 10:30 EDT Appointment [facility] Radiology Nuclear Medicine and [address] [phone] 02/29/2024 14:30 EDT Appointment [facility] Radiology Nuclear Medicine and [address] [phone] 03/01/2024 8:00 EDT Appointment [facility] Radiology Nuclear Medicine and PET [address] [phone] 03/01/2024 9:30 EDT Appointment [facility] Radiology Nuclear Medicine and [address] [phone] documented as of this encounter Visit Diagnoses [...] documented as of this encounter Care Teams Saw Straightener Relationship Specialty Start Date End Date None, Provider PCP - General 06/18/19 11/25/19 documented as of this encounter
--- OUTSIDE RECORDS SUMMARY | 2024-02-10 01:26 | XMS_ITS | Encounter Summary ---
Author Organization [facility] Address [address] [place] [address] Care Team Providers Care Pull Worker Name Role Phone None, Provider Primary Care Provider Unavailabl e Reason for Visit * Reason Comments Social Work Encounter Details Date Type Department Care Team (Late st Contact Info) Description 11/05/2019 Community Health Team [facility] OBGYN Services - [address] [address] Eryn Diaz Social History Tobacco Use Types [...] and her grieving process. Pt lives in [place] with Fermin, her 8 yo step francois [...] 11/25 via zoom - emailed pt link. [facility] Total Time: 1.5 hours total 1 hour, 5 min via zoom with pt 5 min via email with pt 20 min charting Referral: [facility] Follow up: Date: Tuesday, November 26, 2019 Time: 10 AM With: Eryn Diaz Metal Patternmaker Apprentice Location: zoom Status: Active documented in this encounter Plan of Treatment Upcoming Encounters Date Type Department Care Team (Late st Contact Info) Description 02/21/2024 9:45 EDT Office Visit [facility] Adult Primary Care - [address] 585251 Carrington Calderon MD [address] [phone] 02/27/2024 8:30 EDT Telemedicine [facility] Sleep Program - [address] [address] Dwight Colbert [address] [place] [phone] 02/29/2024 10:30 EDT Appointment [facility] Radiology Nuclear Medicine and PET - [address] 286881 02/29/2024 14:30 EDT Appointment [facility] Radiology Nuclear Medicine and PET - [address] [phone] 03/01/2024 8:00 EDT Appointment [facility] Radiology Nuclear Medicine and PET - [address] [address] 03/01/2024 9:30 EDT Appointment [facility] Radiology Nuclear Medicine and PET - [address] [address] documented as of this encounter Visit Diagnoses Not on filedocumented in this encounter Care Teams Pull Worker Relationship Specialty Start Date End Date None, Provider PCP - General 06/18/19 11/25/19 documented as of this encounter
--- OUTSIDE RECORDS SUMMARY | 2024-02-10 01:26 | XMS_ITS | Encounter Summary ---
Author Organization [facility] Address [address] [place] [address] Care Team Providers Care Client Service Representative Name Role Phone None, Provider Primary Care Provider Unavailabl e Reason for Visit * Reason Onset Date Comments Surgery Scheduling 11/20/2019 Encounter Details Date Type Department Care Team (Late st Contact Info) Description 11/20/2019 Telephone [facility] OBGYN Services - [facility] [address] [place], [place] [phone] Pamela Sifuentes MD [address] [place] [phone] Surgery Scheduling Social History Tobacco Use [...] - [facility] Adult Primary Care - [address] [phone] Carrington Calderon MD [address] [phone] 02/27/2024 8:30 EDT Telemedicine [facility] Sleep Program - [address] [phone] Dwight Colbert [address] [place] [phone] 02/29/2024 10:30 EDT Appointment [facility] Radiology Nuclear Medicine and PET - [address] 413091 02/29/2024 14:30 EDT Appointment [facility] Radiology Nuclear Medicine and PET [address] 738441 03/01/2024 8:00 EDT Appointment [facility] Radiology Nuclear Medicine and PET - [address] 587861 03/01/2024 9:30 EDT Appointment [facility] Radiology Nuclear Medicine and PET - [address] [address] documented as of this encounter Visit Diagnoses Not on filedocumented in this encounter Care Teams Client Service Representative Relationship Specialty Start Date End Date None, Provider PCP - General 06/18/19 11/25/19 documented as of this encounter
--- OUTSIDE RECORDS SUMMARY | 2024-02-10 01:26 | XMS_ITS | Encounter Summary ---
Author Organization [facility] Address [address] [place] [address] Care Team Providers Care Bone Drier Name Role Phone Unavailable Primary Care Provider Unavailabl e Encounter Details Date Type Department Care Team (Late st Contact Info) Description 01/03/2020 Orders Only [facility] Adult Primary Care - [address] [phone] Tonja Alejandro PA-C [address] [place] [address] [place] [phone] Social History Tobacco Use Types Packs/Day [...] Notes * Tonja Alejandro PA-C - 01/03/2020 9069 EDT Spoke with patient. She will get [...] [facility] - [address] 327221 Carrington Calderon MD 1 [facility] 1 [place] [phone] 02/27/2024 8:30 EDT Telemedicine [facility] Sleep Program - [address] [phone] Dwight Colbert [address] [place] [address] 02/29/2024 10:30 EDT Appointment [facility] Radiology Nuclear Medicine and PET - [address] [address] 02/29/2024 14:30 EDT Appointment [facility] Radiology Nuclear Medicine and PET [address] [address] 03/01/2024 8:00 EDT Appointment [facility] Radiology Nuclear Medicine and PET [address] 539061 03/01/2024 9:30 EDT Appointment [facility] Radiology Nuclear Medicine and PET [address] [address] documented as of this encounter Visit Diagnoses [...]
--- OUTSIDE RECORDS SUMMARY | 2024-02-10 01:26 | XMS_ITS | Encounter Summary ---
Author Organization [facility] Address [address] [place] [address] Care Team Providers Care Miter Saw Operator Name Role Phone Unavailable Primary Care Provider Unavailabl e Encounter Details Date Type Department Care Team (Latest Contact Info) Description 12/05/2019 10:30 EDT - 12/05/2019 23:59 EDT Hospital Encounter [facility] Pre-Surgical Testing [address] [place], [place] [address]991 Discharge Disposition: Home or Self Care Social [...] instruct them to call us back at [phone] to report symptoms (If patient is in [...] - Visitors must have mask for pickup. BUTTONHOLE FACER will provide picker box operator instructions when Pt is ready for DC. documented in this encounter OR Notes * Preprocedure Instructions - Tohmas Plascencia RN - 12/05/2019 1100 EDT Cristy [...] [facility] Adult Primary Care - [address] 677231 Carrington Calderon MD [address] [place] [phone] 02/27/2024 8:[address] [facility] Sleep Program - [address] 812701 Dwight Colbert [address] [place], [place] [address] 02/29/2024 10:30 EDT [facility]ointment [facility] Rad[facility] Nuclear Medicine and PET - [address] [address] 02/29/2024 14:30 EDT Appointment [facility] Radiology Nuclear Medicine and PET [address] [address] 03/01/2024 8:00 EDT Appointment [facility] Radiology Nuclear Medicine and PET [address] [address] 03/01/2024 9:30 EDT Appointment [facility] Radiology Nuclear Medicine and PET [address] [address] documented as of this encounter Visit Diagnoses Not on filedocumented in this encounter Discontinued Medications Medication Sig Discontinue Reason Start Date End Da te folic acid (FOLVITE) 1 mg tablet Take 4 Tabs by mouth daily. Therapy completed 10/01/2019 12/05/2019 documented as of this encounter
--- OUTSIDE RECORDS SUMMARY | 2024-02-10 01:26 | XMS_ITS | Encounter Summary ---
Author Organization [facility] Address [address] [place] [address] Care Team Providers Care Solution Designer Name Role Phone Unavailable Primary Care Provider Unavailabl e Reason for Referral * Radiology Services (Routine) - Closed Specialty Diagnoses / Procedures Referred By Contac t Referred To Contact Radiology Diagnoses Left foot pain Sore on toe Procedures MR FOOT W WO CONTRAST LEFT Tonja Alejandro PA-C [address] [place] [address] Referral ID Status Reason Start Date Expiration Date Visits Re quested Visits Authorized [id number] Closed 11/28/2019 1 1 Reason for Visit * Reason Comments Foot Pain left Encounter Details Date Type Department Care Team (Late st Contact Info) Description 11/28/2019 14:30 EDT Office Visit [facility] Adult Primary Care [facility] 1 [place] [address] Tonja Alejandro PA-C [address] [place] [phone] Left foot pain (Primary Dx); Type 2 diabetes mellitus with other specified complication, unspecified whether long term care phlebotomist insulin use ([facility]); Sore on toe Social History Tobacco Use [...] from the original note were not included. [facility] Primary Care Acute Visit Service Date: 11/28/2019 [...] she did go to urgent care at [facility] and had x-rays done and was told [...] mellitus with other specified complication, unspecified whether residential insulin use ([facility]) Sore on toe/left foot pain This [...] [facility] - [address] 232651 Carrington Calderon MD 1 [facility] 1 [place] [phone] 02/27/2024 8:30 EDT Telemedicine [facility] Sleep Program - [address] 762321 Dwight Colbert [address] [place] [phone] 02/29/2024 10:30 EDT Appointment [facility] Radiology Nuclear Medicine and PET [address] [address] 02/29/2024 14:30 EDT Appointment [facility] Radiology Nuclear Medicine and PET [address] 813241 03/01/2024 8:00 EDT Appointment [facility] Radiology Nuclear Medicine and PET [address] 729891 03/01/2024 9:30 EDT Appointment [facility] Radiology Nuclear Medicine and PET [address] [address] documented as of this encounter Results * [...] mellitus with other specified complication, unspecified whether residential insulin use ([facility]) Sore on toe Left foot pain Pain in limb Sore on toe documented in this encounter
--- OUTSIDE RECORDS SUMMARY | 2024-02-10 01:26 | XMS_ITS | Encounter Summary ---
Author Organization [facility] Address [address] [place] [address] Care Team Providers Care Iron Piler Name Role Phone None, Provider Primary Care Provider Unavailabl e Reason for Visit * Reason Comments Dental Pain inside lower abscess near gum.bilateral Encounter Details Date Type Department Care Team (Latest Contact Info) Description 10/28/2019 14:26 EDT - 10/28/2019 15:11 EDT Hospital Encounter [facility] - [facility] [address] [place] [address] Monique Gramajo, GUSTAVO [address] [place] [phone] Gingivitis (Primary Dx) Discharge Disposition: Home or [...] sent through Care Everywhere. * Periodontal Conditions (Bulgarian) documented in this encounter Medications at [...] Code Departure Means Destination Home or Self Half-Way documented in this encounter ED Notes * Monique Gramajo, CLOUD OPERATIONS ENGINEER - 10/28/2019 1500 EDT DOS: 10/28/2019 Chief [...] tried any treatment. Did call her dentist ([facility]), but they can't see her until Tuesday. [...] PCR results found No results found for: [id number] HgA1c [ ] 1T pending [ ] [...] approx 2012 - had SI, treated at [facility]. Marijuana prn to help with stress/anxiety sx. [...] of further medications. Upon departure from [facility], the patient's pain was 6 on a zero to ten scale. Any further pain treatment will be at the discretion of the provider following up with the patient based on their clinical assessment . Condition at departure from the [facility] : Stable MDM 10/28/2019 15:46 [...] Visit [facility] Adult Primary Care - [address] [phone] Carrington Calderon MD [address] [phone] 02/27/2024 8:30 EDT Telemedicine [facility] Sleep Program - [address] [phone] Dwight Colbert [address] [place] [phone] 02/29/2024 10:30 EDT [facility] Radiology Nuclear Medicine and PET - [address] [place] [address] [address] 02/29/2024 14:30 EDT Appointment [facility] Radiology Nuclear Medicine and PET [address] [address] 03/01/2024 8:00 EDT Appointment [facility] Radiology Nuclear Medicine and PET - [address] [address] 03/01/2024 9:30 EDT Appointment [facility] Radiology Nuclear Medicine and PET [address] [address] documented as of this encounter Visit Diagnoses Diagnosis Gingivitis- Primary Chronic gingivitis, plaque induced documented in this encounter Care Teams Iron Piler Relationship Specialty Start Date End Date None, Provider PCP - General 06/18/19 11/25/19 documented as of this encounter
--- OUTSIDE RECORDS SUMMARY | 2024-02-10 01:26 | XMS_ITS | Encounter Summary ---
Author Organization [facility] Address [address] [place] [address] Care Team Providers Care Siderographer Name Role Phone Unavailable Primary Care Provider Unavailabl e Encounter Details Date Type Department Care Team (Latest Contact Info) Description 01/01/2020 8:37 EDT - 01/01/2020 23:59 EDT Hospital Encounter [facility] [address] [place], [place] [phone] Discharge Disposition: Home or Self Care Social [...] Visit [facility] Adult Primary Care [address] [address] Carrington Calderon MD [address] [place] [address] 1 [place] [address] 02/27/2024 8:30 EDT Telemedicine [facility] Sleep Program - [address] [address] Dwight Colbert [address] [place] [address] [phone] 02/29/2024 10:30 EDT [facility] [address] [phone] 02/29/2024 14:30 EDT Appointment [facility] Radiology Nuclear Medicine and PET [address] [phone] 03/01/2024 8:00 EDT Appointment [facility] Radiology Nuclear Medicine and PET [address] [phone] 03/01/2024 9:30 EDT Appointment [facility] Radiology Nuclear Medicine and PET [address] [phone] documented as of this encounter Procedures Procedure Name Priority Date/Time Associated Diagnosis Comments XR FOOT LEFT 3 OR MORE VIEWS Routine 01/01/2020 8:52 EDT Ulcerated, foot, left, with fat layer exposed ([facility]) Type 2 diabetes mellitus with diabetic polyneuropathy, with long-term current use of insulin ([facility]) documented in this encounter Results * [...]
--- OUTSIDE RECORDS SUMMARY | 2024-02-10 01:26 | XMS_ITS | Encounter Summary ---
Author Organization [facility] Address [address] [place] [address] Care Team Providers Care Lime Mixer Name Role Phone Unavailable Primary Care Provider Unavailabl e Reason for Visit * Reason Comments Social Work Encounter Details Date Type Department Care Team (Late st Contact Info) Description 12/19/2019 Community Health Team [facility] OBGYN Services - [address] [address] Eryn Diaz Social History Tobacco Use Types [...] [facility] - [address] [phone] Carrington Calderon MD [address] [phone] 02/27/2024 8:30 EDT Telemedicine [facility] Sleep Program - [address] [phone] Dwight Colbert [address] [place] [phone] 02/29/2024 10:30 EDT Appointment [facility] Radiology Nuclear Medicine and PET - [address] 266041 02/29/2024 14:30 EDT Appointment [facility] Radiology Nuclear Medicine and PET - [address] [phone] 03/01/2024 8:00 EDT Appointment [facility] Radiology Nuclear Medicine and PET - [address] [phone] 03/01/2024 9:30 EDT Appointment [facility] Radiology Nuclear Medicine and PET - [address] [phone] documented as of this encounter Visit Diagnoses Not on filedocumented in this encounter
--- OUTSIDE RECORDS SUMMARY | 2024-02-10 01:26 | XMS_ITS | Encounter Summary ---
Author Organization [facility] Address [address] [place] [address] Care Team Providers Care City Planning Teacher Name Role Phone Unavailable Primary Care Provider Unavailabl e Reason for Visit * Reason Comments Diabetes * Consult (Routine) - Specialty Report Received Specialty Diagnoses / Procedures Referred By Contlesli t Referred To Contact Endocrinology Diagnoses Type 2 diabetes mellitus with other specified complication, unspecified whether [facility] insulin use ([facility]) Tonja Alejandro PA-C [address] [place] [address] [facility] Endocrinology [address] [place] [address] Referral ID Status Reason Start Date Expiration Date Visits Requested Visits Authorized [id number] Specialty Report Received Specialty Services Required 11/27/2019 1 1 Encounter Details Date Type Department Care Team (Latest Contact Info) Description 11/30/2019 9:30 EDT Telemedicine [facility] Endocrinology - [facility] [address] [place] [address] Sara Zafar NP 62 [facility] [address] [place] [address] Anxiety and depression (Primary Dx); Type 2 diabetes mellitus with hyperosmolarity without coma, with long-term current use of insulin ([facility]) Social History Tobacco Use Types [...] APRN - 11/30/2019 0930 EDT Subjective: [facility] F/U Note TELEMEDICINE VIDEO VISIT [...] in conjunction with tobacco dependence. She saw RATING CLERK on 11/03/2018, and was advised to get diabetes in control, and to quit smoking both tobacco and pot. She is now scheduled for a tubal ligation December 14. 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 She did go to [facility] and had x-rays and was told [...] siblings, knows about 2, no DM. 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 Previous [...] [facility] Adult Primary Care - [address] 260341 Carrington Calderon MD 1 [facility] 1 [place] [phone] 02/27/2024 8:30 EDT Telemedicine [facility] Sleep Program - [address] [phone] Dwight Colbert [address] [place] [phone] 02/29/2024 10:30 EDT [facility]ointment [facility] Radiology Nuclear Medicine and PET - [address] [phone] 02/29/2024 14:30 EDT Appointment [facility] Radiology Nuclear Medicine and PET - [address] [address] 03/01/2024 8:00 EDT Appointment [facility] Radiology Nuclear Medicine and PET [address] [address] 03/01/2024 9:30 EDT Appointment [facility] Radiology Nuclear Medicine and PET [address] [address] documented as of this encounter Visit Diagnoses Diagnosis Anxiety and depression- Primary Dysthymic disorder Type 2 diabetes mellitus with hyperosmolarity without coma, with long-term current use of insulin ([facility]) documented in this encounter Discontinued [...]
--- OUTSIDE RECORDS SUMMARY | 2024-02-10 01:26 | XMS_ITS | Encounter Summary ---
Author Organization [facility] Address [address] [place] [address] Care Team Providers Care Blood Bank Credit Clerk Name Role Phone Unavailable Primary Care Provider Unavailabl e Reason for Referral * Consult (Routine) - Specialty Report Received Specialty Diagnoses / Procedures Referred By [facility] t Referred To Contact Endocrinology Diagnoses Type 2 diabetes mellitus with other specified complication, unspecified whether buttermaker continuous churn insulin use ([facility]) Teodoro Alejandro PA-C [address] [place] [address] [facility] Endocrinology [address] [place] [address] Referral ID Status Reason Start Date Expiration Date Visits Requested Visits Authorized [id number] Specialty Report Received Specialty Services Required 11/27/2019 [...] Team ([facility] Contact Info) Description 11/26/2019 15:30 EDT Telemedicine [facility] Adult Primary Care [facility] [address] [place] [address] Teodoro Alejandro PA-C [address] [facility] [address] [place] [address] Type 2 diabetes mellitus with other specified complication, unspecified whether intermediate insulin use ([facility]) (Primary Dx); Left foot pain; Anxiety and [...] Lantus 25 units in the morning and [id number] mg once a day. Her fasting sugars [...] in October 2019. She follows up with [facility]. She is scheduled for a tubal procedure on December 13. 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 She did go to [facility] and had x-rays and was [...] specified complication, unspecified whether intermediate insulin use ([facility]) Patient has type 2 diabetes that is [...] [facility] - [address] 230211 Carrington Calderon MD [address] [phone] 02/27/2024 8:30 EDT Telemedicine [facility] Sleep Program - [address] 099841 Dwight Colbert [address] [place] [phone] 02/29/2024 10:30 EDT Appointment [facility] Radiology Nuclear Medicine and PET [address] [phone] 02/29/2024 14:30 EDT Appointment [facility] Radiology Nuclear Medicine and PET [address] [phone] 03/01/2024 8:00 EDT Appointment [facility] Radiology Nuclear Medicine and PET [address] [phone] 03/01/2024 9:30 EDT Appointment [facility] Radiology Nuclear Medicine and PET [address] [phone] Scheduled Referrals Name Type Priority Associated Diagnoses Order Schedule AMB CONS/FOLLOW UP ENDOCRINOLOGY Outpatient Referral Routine Type 2 diabetes mellitus with other specified complication, unspecified whether buttermaker continuous churn insulin use ([facility]) Ordered: 11/27/2019 documented as of this encounter Results * (ABNORMAL) C REACTIVE PROTEIN (11/28/2019 15:56 EDT) C-Reactive Protein 10.6(H) <10.0 mg/L 11/28/2019 17:12 [facility] Blood VENOUS BLOOD / Unknown Venipuncture / Unknown 11/28/2019 15:56 EDT 11/28/2019 15:56 EDT Teodoro Alejandro PA-C CHEMISTRY & BLOOD GAS ORDERABLES [facility] [address] [place] [address] * (ABNORMAL) COMPREHENSIVE METABOLIC PANEL (CMP) (11/28/2019 15:56 EDT) Sodium 134(L) 136 - 145 mEq/L 11/28/2019 17:12 [facility] Potassium 4.2 3.5 - 5.0 mEq/L 11/28/2019 17:12 [facility] Chloride 100 96 - 110 mEq/L 11/28/2019 17:12 [facility] CO2 Total 28 22 - 32 mEq/L 11/28/2019 17:12 [facility] Glucose 301(H) 70 - 100 mg/dL 11/28/2019 17:12 [facility] BUN 14 10 - 26 mg/dL 11/28/2019 17:12 [facility] Creatinine 0.57 0.52 - 1.04 mg/dL 11/28/2019 17:12 [facility] eGFR 121 >60 mL/min/1.7 3m2 11/28/2019 17:12 [facility] Comment:eGFR calculated usin g CKD-EPI equation for non- Americans. Multiply eGFR by 1.16 for patients. Total Protein 7.0 6.3 - 8.2 g/dL 11/28/2019 17:12 [facility] Albumin 3.9 3.4 - 4.9 g/dL 11/28/2019 17:12 [facility] Alkaline Phosphatase 100 38 - 126 U/L 11/28/2019 17:12 [facility] AST 17 15 - 46 U/L 11/28/2019 17:12 EDT [facility] ALT 14 <35 U/L 11/28/2019 17:12 [facility] Bilirubin, Total <0.5 <1.4 mg/dL 11/28/19 17:12 [facility] Calcium 9.8 8.5 - 10.5 mg/dL 11/28/2019 17:12 [facility] Calculated Calcium 9.9 8.5 - 10.5 mg/dL 11/28/2019 17:12 [facility] Blood VENOUS BLOOD / Unknown Venipuncture / Unknown 11/28/2019 15:56 EDT 11/28/2019 15:56 EDT Teodoro Alejandro PA-C CHEMISTRY & BLOOD GAS ORDERABLES [facility] [address] [place] [address] * (ABNORMAL) COMPLETE BLOOD COUNT AND DIFFERENTIAL (11/28/2019 15:56 EDT) WBC 14.38(H) 4.00 - 12.40 K/cmm 11/28/2019 17:04 [facility] RBC 4.69 3.86 - 5.04 M/cmm 11/28/2019 17:04 [facility] Hemoglobin 14.3 11.6 - 15.2 gm/dL 11/28/2019 17:04 [facility] HCT 40.8 34.9 - 44.4 % 11/28/2019 17:04 [facility] MCV 87 81 - 98 fl 11/28/2019 17:04 [facility] MCH 30.5 26.7 - 33.3 pg 11/28/2019 17:04 [facility] MCHC 35.0 32.1 - 35.9 gm/dL 11/28/2019 17:04 [facility] RDW-CV 12.0 <14.7 % 11/28/2019 17:04 [facility] RDW-SD 38.4 <50.4 fl 11/28/2019 17:04 EDT [facility] PLT 414(H) 141 - 377 K/cmm 11/28/2019 17:04 EDT [facility] MPV 10.1 9.5 - 12.7 fl 11/28/2019 17:04 EDT [facility] Type of Differential: Manual 11/28/2019 17:04 T [facility] Blood VENOUS BLOOD / Unknown Venipuncture / Unknown 11/28/2019 15:56 EDT 11/28/2019 15:56 EDT Teodoro Alejandro PA-C PACKAGES & D NA PROBE ORDERABLES [facility] [address] [place] [address] * (ABNORMAL) HEMOGLOBIN A1C (11/28/2019 15:56 EDT) Hemoglobin A1c 10.3(H) <5.7 % 11/29/2019 9:15 T [facility] Comment: Glycemic Status References: [...] Avg Glucose 249 mg/dL 0 9:15 T [facility] Comment: The eAG represents the A1c result expressed as average glucose in mg/dL. Blood VENOUS BLOOD / Unknown Venipuncture / Unknown 11/28/2019 15:56 EDT 11/28/2019 15:56 EDT Teodoro Alejandro PA-C CHEMISTRY & BLOOD GAS ORDERABLES Performing Organization Address [facility] Co de Phone Number [facility] [address] [place] [address] * THYROID CASCADE (11/28/2019 15:56 EDT) TSH 0.64 0.47 - 4.68 uIU/mL 11/28/2019 17:44 EDT [facility] Blood VENOUS BLOOD / Unknown Venipuncture / Unknown 11/28/2019 15:56 EDT 11/28/2019 15:56 EDT Narrative [facility] - 11/28/2019 17:44 EDT NOTE: TSH [place] is not recommended for patients in which pituitary or hypothalamic disorders are suspected. The results of this assay can be falsely lowered due to the consumption of Biotin. Teodoro Alejandro PA-C CHEMISTRY & BLOOD GAS ORDERABLES Performing Organization Address [facility] Co de Phone Number [facility] [address] [place] [address] * LIPID PROFILE (INCLUDES CHOLESTEROL, TRIGLYCERIDES, HDL, LDL) (11/28/2019 15:56 EDT) Pathologist [facility] Cholesterol 179 See Note mg/dL 11/28/2019 17:12 EDT [facility] Comment: Acceptable: ?<200 mg/dL Borderline High: 200-239 mg/dL High: ?> or = 240 mg/dL HDL 38 See Note mg/dL 11/28/2019 17:12 EDT [facility] Comment: Low: ? <40 mg/dL Normal: ??40-60 mg/dL High: ?>60 mg/dL LDL, Calculated 61 See Note mg/dL 11/28/2019 17:12 EDT [facility] Comment: Optimal: ? <100 mg/dL Near Optimal: ?100-129 mg/dL Borderline High: 130-159 mg/dL High: ?160-189 mg/dL Very High: ? > or = 190 mg/dL Triglyceride 398 See Note mg/dL 11/28/2019 17:12 EDT [facility] Comment: Normal: ? <150 mg/dL Borderline High: ??150 - 199 mg/dL High: ? 200 - 499 mg/dL Very High: ?> or = 500 mg/dL Chol/HDL Ratio 4.7 See Note 11/28/2019 17:12 EDT [facility] Comment: No reference range has been established for CHOL/HDL ratio. Non HDL Cholesterol 141 See Note mg/dL 11/28/2019 17:12 T [facility] Comment: Desirable: ?<130 mg/dL Borderline High: ??130-159 mg/dL High: ? 160-189 mg/dL Very High: ?> or = 190 mg/dL Blood VENOUS BLOOD / Unknown Venipuncture / Unknown 11/28/2019 15:56 EDT 11/28/2019 15:56 EDT Teodoro Alejandro PA-C CHEMISTRY & BLOOD GAS ORDERABLES [facility] [address] [place] [address] * (ABNORMAL) ALBUMIN, URINE (11/28/2019 15:56 EDT) Albumin, Urine 11.3 See Note mg/dL 2019 16:47 EDT [facility] Comment: NOTE: Reference range not established Creatinine, Urine 143.1 See Note mg/dL 11/28/2019 16:47 T [facility] Comment: NOTE: Reference range not established Lab Urine Albumin to Creatinine Ratio 79(H) <30 ug/mg Creatinine 11/28/2019 16:47 EDT [facility] Comment: Urine Albumin/Creatinine Ratio: Normal: <30 ug/mg Creatinine Moderately increased albuminuria: 30-300 ug/mg Creatinine Jatinder increased albuminuria: >300 ug/mg Creatinine Urine URINE SPECIMEN OBTAINED BY CLEAN CATCH PROCEDURE / Unknown Urine Collect / Unknown 11/28/2019 15:56 EDT 11/28/2019 15:56 EDT Teodoro Alejandro PA-C CHEMISTRY & BLOOD GAS ORDERABLES [facility] [address] [place] [address] documented in this encounter Visit Diagnoses Diagnosis Type 2 diabetes mellitus with other specified complication, unspecified whether buttermaker continuous churn insulin use ([facility])- Primary Left foot pain Pain in limb [...]
--- OUTSIDE RECORDS SUMMARY | 2024-02-10 01:26 | XMS_ITS | Encounter Summary ---
Author Organization [facility] Address [address] [place] [address] Care Team Providers Care Software Developer Mid Level Name Role Phone Unavailable Primary Care Provider [...] [facility] Adult [facility] - [address] [address] Carrington Calderon MD [address] [address] 02/27/2024 8:30 EDT Telemedicine [facility] Sleep Program - [address] [address] Dwight Colbert [address] [place] [id number] 02/29/2024 10:30 EDT Appointment [facility] Radiology Nuclear Medicine and PET [address] [phone] 02/29/2024 14:30 EDT Appointment [facility] Radiology Nuclear Medicine and PET [address] [id number] 03/01/2024 8:00 EDT Appointment [facility] Radiology Nuclear Medicine and PET [address] [id number] 03/01/2024 9:30 EDT Appointment [facility] Radiology Nuclear Medicine and PET [address] [id number] documented as of this encounter Visit Diagnoses Not on filedocumented in this encounter
--- OUTSIDE RECORDS SUMMARY | 2024-02-10 01:26 | XMS_ITS | Encounter Summary ---
Author Organization [facility] Address [address] [place] [address] Care Team Providers Care Outside Plant Supervisor Name Role Phone Unavailable Primary Care Provider Unavailabl e Encounter Details Date Type Department Care Team (Latest Contact Info) Description 01/01/2020 8:37 EDT - 01/01/2020 23:59 EDT Hospital Encounter [facility] [address] [place], [place] [id number] Discharge Disposition: Home or Self Care Social [...] [facility] Adult Primary Care [address] [address] Carrington Calderon MD [address] [place] [address] [address] [place] [address] 02/27/2024 8:30 EDT Telemedicine [facility] Sleep Program - [address] [address] Dwight Colbert [address] [place] [phone] 02/29/2024 10:30 EDT Appointment [facility] [place] [facility] Radiology Nuclear Medicine and PET [address] [id number] 02/29/2024 14:30 EDT Appointment [facility] Radiology Nuclear Medicine and PET [address] [phone] 03/01/2024 8:00 EDT Appointment [facility] Radiology Nuclear Medicine and PET [address] [phone] 03/01/2024 9:30 EDT Appointment [facility] Radiology Nuclear Medicine and PET [address] [phone] documented as of this encounter Procedures Procedure [...] COMPARISON: Left foot MRI 12/05/2019. Procedure Note Zka Maya, DO - 01/01/2020 EXAM/TECHNIQUE: XR FOOT [...]
--- OUTSIDE RECORDS SUMMARY | 2024-02-10 01:26 | XMS_ITS | Encounter Summary ---
Author Organization [facility] Address [address] [place] [address] Care Team Providers Care Elevator Operator Name Role Phone None, Provider Primary [...] [facility] Adult Primary Care - [address] 580881 Carrington Calderon MD 1 [facility] 1 [place] [address] 02/27/2024 8:30 EDT Telemedicine [facility] Sleep Program - [address] [address] Dwight Colbert [address] [place] [address] [phone] 02/29/2024 10:30 EDT Appointment [facility] Radiology Nuclear Medicine and PET - [address] [phone] 02/29/2024 14:30 EDT Appointment [facility] Radiology Nuclear Medicine and PET - [address] [id number] 03/01/2024 8:00 EDT Appointment [facility] Radiology Nuclear Medicine and PET [address] [id number] 03/01/2024 9:30 EDT Appointment [facility] Radiology Nuclear Medicine and PET [address] [phone] documented as of this encounter Visit Diagnoses Not on filedocumented in this encounter Care Teams Elevator Operator Relationship Specialty Start Date End Date None, Provider PCP - General 06/18/19 11/25/19 documented as of this encounter
--- OUTSIDE RECORDS SUMMARY | 2024-02-10 01:27 | XMS_ITS | Encounter Summary ---
Author Organization [facility] Address [address] [place] [address] Care Team Providers Care Finishing Area Supervisor Name Role Phone None, Provider Primary Care Provider Unavailabl e Reason for Visit * Reason Onset Date Comments 08/30/2019 Encounter Details Date Type Department Care Team (Late st Contact Info) Description 08/30/2019 Telephone [facility] Obstetrics & Midwifery - [facility] [address] [place] [address] Kylah Jimenes RN Social History Tobacco Use [...] Kylah Jimenes RN - 08/30/2019 1551 EDT [facility] Initial Appt Screening Form Best Contact Number: [phone] [facility] Provider: HUGO Previous [facility] Patient: YES: No Referred by: self [...] is agreeable to this. Message routed to NIB INSPECTOR team to get into [employer]. documented in this encounter Plan of Treatment Upcoming Encounters Date Type Department Care Team (Late st Contact Info) Description 02/21/2024 9:45 EDT Office Visit [facility] Adult Primary Care - [address] [address] Carrington Calderon MD 1 [facility] Level 1 [place] [address] 02/27/2024 8:30 EDT Telemedicine [facility] Sleep Program - [address] [place] [address] Dwight Colbert [address] [place] [address] [id number] 02/29/2024 10:30 EDT Appointment [facility] Radiology Nuclear Medicine and PET - [address] [phone] 02/29/2024 14:30 EDT Appointment [facility] Radiology Nuclear Medicine and PET [address] [phone] 03/01/2024 8:00 EDT Appointment [facility] Radiology Nuclear Medicine and PET [address] [id number] 03/01/2024 9:30 EDT Appointment [facility] Radiology Nuclear Medicine and PET [address] [phone] documented as of this encounter Results * (ABNORMAL) QUANT BETA HCG, (09/02/2019 9:42 EDT) [facility] Beta HCG Quant, 707(H) <5 mIU/ml 09/02/2019 10:30 EDT [facility] Comment: NOTE: : [...] MD CHEMISTRY & BLOO D GAS ORDERABLES [facility] [address] [place] [address] documented in this encounter Visit Diagnoses Diagnosis affected by previous ectopic - Primary documented in this encounter Care Teams Finishing Area Supervisor Relationship Specialty Start Date End Date None, Provider PCP - General 06/18/19 11/25/19 documented as of this encounter
--- OUTSIDE RECORDS SUMMARY | 2024-02-10 01:27 | XMS_ITS | Encounter Summary ---
Author Organization [facility] Address [address] [place] [address] Care Team Providers Care Communications Superintendent Name Role Phone None, Provider Primary Care Provider Unavailabl e Encounter Details Date Type Department Care Team (Late st Contact Info) Description 09/02/2019 9:45 EDT Phlebotomy Only [facility] 2 Phlebotomy [address] [place] [address] Women'S Soccer Coach, Acc Phlebotomy affected by previous ectopic (Primary [...] [facility] Adult Primary Care - [address] [phone] Carrington Calderon MD [address] [address] 02/27/2024 8:30 EDT Telemedicine [facility] Sleep Program - [address] 195701 Dwight Colbert [address] [place] [address] [phone] 02/29/2024 10:30 EDT Appointment [facility] Radiology Nuclear Medicine and PET [address] [phone] 02/29/2024 14:30 EDT Appointment [facility] Radiology Nuclear Medicine and PET [address] [id number] 03/01/2024 8:00 EDT Appointment [facility] Radiology Nuclear Medicine and PET [address] [phone] 03/01/2024 9:30 EDT Appointment [facility] Radiology Nuclear Medicine and PET [address] [phone] documented as of this encounter Procedures Procedure Name Priority Date/Time Associated Diagnosis Comments QUANT BETA HCG, Routine 09/02/2019 9:42 EDT affected by previous ectopic documented in this encounter Results * (ABNORMAL) QUANT BETA HCG, (09/02/2019 9:42 EDT) Beta HCG Quant, 707(H) <5 mIU/ml 09/02/2019 10:30 EDT [facility] Comment: NOTE: : [...] CHEMISTRY & BLOO D GAS ORDERABLES [facility] [address] [place] [address] documented in this encounter Visit Diagnoses Diagnosis affected by previous ectopic - Primary documented in this encounter Care Teams Communications Superintendent Relationship Specialty Start Date End Date None, Provider PCP - General 06/18/19 11/25/19 documented as of this encounter
--- OUTSIDE RECORDS SUMMARY | 2024-02-10 01:27 | XMS_ITS | Encounter Summary ---
Author Organization [facility] Address [address] [place] [address] Care Team Providers Care Soda Fountain Clerk Name Role Phone None, Provider Primary Care [...] 8:19 EST - 06/18/2019 15:19 EST Emergency [facility] Emergency Department - [facility] [place] [address] [place] [address] [phone] Omayra Schuler PA-C [address] [place] [address], Level 1 [place] [phone] Acute non-recurrent maxillary sinusitis (Primary Dx); Acute [...] be sent through Care Everywhere. * Sinusitis (Citizen Of [place]) documented in this encounter Medications at Time [...] recent long-distance travel or immobilizations. 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 Review of [...] appears to be a good tracing. Attending aircraft layout worker not immediately available for acute interpretation. Radiology [...] follow-up with primary care physician and discussed lrqc-zep-[id number] medications for pain control. Patient and family [...] [facility] Adult Primary Care - [address] [phone] Carrington Calderon MD [address] [phone] 02/27/2024 8:30 EDT Telemedicine [facility] Sleep Program - [address] [address] Dwight Colbert [address] [place] [address] [phone] 02/29/2024 10:30 EDT [facility]ointment [facility] Radiology Nuclear Medicine and PET - [address] [phone] 02/29/2024 14:30 EDT Appointment [facility] Radiology Nuclear Medicine and PET - [address] [id number] 03/01/2024 8:[address] [facility] Radiology Nuclear Medicine and PET - [address] [id number] 03/01/2024 9:[address] [facility] Radiology Nuclear [place] [address] documented as of this encounter Procedures Procedure [...] EST) 06/18/2019 16:2 1 EST Scan 2 Doctor Of Naturopathic Medicine PROCEDURE/MINOR BRAULIO GICAL ORDERABLES * XR CHEST [...] 136 136 - 145 mEq/L 06/18/2019 9:25 [facility] Potassium 4.6 3.5 - 5.0 mEq/L 06/18/2019 9:25 [facility] Chloride 102 96 - 110 mEq/L 06/18/2019 9:25 [facility] CO2 Total 27 22 - 32 mEq/L 06/18/2019 9:25 [facility] Glucose 256(H) 70 - 100 mg/dL 06/18/2019 9:25 [facility] Calcium 9.2 8.5 - 10.5 mg/dL 06/18/2019 9:25 [facility] Calculated Calcium 9.4 8.5 - 10.5 mg/dL 06/18/2019 9:25 [facility] BUN 10 10 - 26 mg/dL 06/18/2019 9:25 [facility] Creatinine 0.43(L) 0.52 - 1.04 mg/dL 06/18/2019 9:25 [facility] eGFR 133 >60 mL/min/1.7 3m2 06/18/2019 9:25 [facility] Comment:eGFR calculated in g CKD-EPI equation for non- Americans. Multiply eGFR by 1.16 for patients. Blood VENOUS BLOOD / Unknown Venipuncture / Unknown 06/18/2019 9:01 EST 06/18/2019 9:[address] [facility] CHEMISTRY & BLO OD GAS ORDERABLES [facility] [address] [place] [address] * (ABNORMAL) COMPLETE BLOOD COUNT AND DIFFERENTIAL (06/18/2019 9:01 EST) WBC 10.84 4.00 - 12.40 K/cmm 06/18/2019 9:15 [facility] RBC 4.58 3.86 - 5.04 M/cmm 06/18/2019 9:15 [facility] Hemoglobin 14.1 11.6 - 15.2 gm/dL 06/18/2019 9:15 [facility] HCT 40.9 34.9 - 44.4 % 06/18/2019 9:15 [facility] MCV 89 81 - 98 fl 06/18/2019 9:15 [facility] MCH 30.8 26.7 - 33.3 pg 06/18/2019 9:15 [facility] MCHC 34.5 32.1 - 35.9 gm/dL 06/18/2019 9:15 [facility] RDW-CV 12.2 <14.7 % 06/18/2019 9:15 [facility] RDW-SD 39.5 <50.4 fl 06/18/2019 9:15 [facility] PLT 349 141 - 377 K/cmm 06/18/2019 9:15 [facility] MPV 9.6 9.5 - 12.7 fl 06/18/2019 9:15 [facility] % Neutrophils 51.3 % 06/18/2019 9:15 [facility] % Lymphocytes 33.8 % 06/18/2019 9:15 [facility] % Monocytes 9.9 % 06/18/2019 9:15 [facility] % Eosinophils 4.2 % 06/18/2019 9:15 [facility] % Basophils 0.5 % 06/18/2019 9:15 [facility] % Immature Grans 0.3 % 06/18/19 20 9:15 [facility] Absolute Neutrophils 5.57 2.20 - 8.85 K/cmm 06/18/2019 9:15 [facility] Absolute Lymphocytes 3.66(H) 1.09 - 3.30 K/cmm 06/18/2019 9:15 [facility] Absolute Monocytes 1.07(H) 0.10 - 0.80 K/cmm 06/18/2019 9:15 [facility] Absolute Eosinophils 0.46 0.03 - 0.61 K/cmm 06/18/2019 9:15 [facility] ABS Basophils 0.05 0.01 - 0.11 K/cmm 06/18/2019 9:15 [facility] Absolute Immature Grans 0.03 0.00 - 0.06 K/cmm 06/18/2019 9:15 [facility] Type of Differential: Auto 06/18/2019 9:15 [facility] Blood VENOUS BLOOD / Unknown Venipuncture / Unknown 06/18/2019 9:01 EST 06/18/2019 9:09 EST Omayra Schuler PA-C PACKAGES & DNA PROBE ORDERABLES Performing Organization Address [facility]/State/[facility] Co de Phone Number [facility] [address] [place] [address] * EKG 12-LEAD (06/18/2019 8:28 EST) 06/18/2019 8:28 EST Narrative [facility] EKG - 06/18/2019 14:05 EST ?[facility] Emergency ? Test Date: ?2019-06-18 Pat Name: ? CRISTY LUO ?Department: ?? ED ? Room: ? GT33 Gender: ? Female ? Supervisor [place]: ?? [id number] : ?1985 ? Requested By: [facility] Order Number: [id number] ? Reading MD: ?? FRAN LUCIANO SA MD ? Measurements Intervals ?[place] ? Rate: ? 94 ? P: ?51 AR: ? 138 ?QRS: ?8 QRSD: ? 88 [...] Fran Dowling Sa, MD - 06/18/2019 [facility] Emergency Test Date: 2019-06-18 Pat Name: CRISTY LUO Department: ED Room: 33 Gender: Female Supervisor [place]: [id number] : 1985 Requested By: [facility] Order Number: [id number] Reading MD: FRAN GRAYSON Measurements Intervals [place] Rate: 94 P: 51 AR: 138 QRS: 8 QRSD: 88 T: 1 [...] MD. Omayra Chavira-Shiva CARDIAC ECG ORD ERABLES [facility] EKG documented in this encounter Visit [...] not cover this medication. There is an iljn-tou-untbjdn cream or an sbdp-ajc-nnjwlaw patch with a lower concentration that is [...] dose, On 06/18/19 at 0900, STAT 0906 ([facility] ider: Judi Gomes RN) documented in this encounter Care Teams Soda Fountain Clerk Relationship Specialty Start Date End Date None, Provider PCP - General 06/18/19 11/25/19 documented as of this encounter
--- OUTSIDE RECORDS SUMMARY | 2024-02-10 01:27 | XMS_ITS | Encounter Summary ---
Author Organization [facility] Address [address] [place] [address] Care Team Providers Care Automobile Salesman Name Role Phone None, Provider Primary Care Provider Unavailabl e Reason for Visit * Reason Onset Date Comments Coordination Of Care 09/18/2019 Encounter Details Date Type Department Care Team (Late st Contact Info) Description 09/18/[address] [facility] OBGYN Services - [facility] [address] [place] [address] Cristy Richmond, RN Coordination Of Care Social [...] [facility] Adult Primary Care - [address] [phone] Carrington Calderon MD [address] [phone] 02/27/2024 8:[address] [facility] Sleep Program - [address] [phone] Dwight Colbert [address] [place] [address] [phone] 02/29/2024 10:30 EDT Appointment [facility] Radiology Nuclear Medicine and PET [address] [phone] 02/29/2024 14:30 EDT Appointment [facility] Radiology Nuclear Medicine and PET - [address] [phone] 03/01/2024 8:00 EDT Appointment [facility] Radiology Nuclear Medicine and PET [address] [phone] 03/01/2024 9:30 EDT Appointment [facility] Radiology Nuclear Medicine and PET [address] [phone] documented as of this encounter Visit Diagnoses Not on filedocumented in this encounter Care Teams Automobile Salesman Relationship Specialty Start Date End Date None, Provider PCP - General 06/18/19 11/25/19 documented as of this encounter
--- OUTSIDE RECORDS SUMMARY | 2024-02-10 01:27 | XMS_ITS | Encounter Summary ---
Author Organization [facility] Address [address] [place] [address] Care Team Providers Care Per Diem Interpreter Name Role Phone None, Provider Primary Care Provider Unavailabl e Reason for Visit * Reason Comments Nutrition Counseling Type 2 DM first tri mester * Consult (Routine) - Order Cancelled Specialty Diagnoses / Procedures Referred By Kit goode Referred To Contact Obstetrics Diagnoses with type 2 diabetes mellitus in first trimester Mayra Lund MD [address] [place] [phone] [facility] Ob/Mfm [address] [place] [address] Referral ID Status Reason Start Date Expiration Date Visits Requested Visits Authorized [id number] Order Cancelled Specialty Services Required 10/01/2019 1 1 Encounter Details Date Type Department Care Team (Late st Contact Info) Description 10/08/2019 14:00 EDT Nutrition [facility] Obstetrics & Midwifery - [facility] [address] [place], [place] [phone] Digital Content Producer, [facility] Obgyn Class 2 severe obesity due to excess calories with serious comorbidity in adult, unspecified BMI ([facility]); Type 2 diabetes mellitus with other specified complication, unspecified whether 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 Obtained verbal consent from patient or the patient's adult renewals representative for use of the telephone to [...] Diagnosis Date ??? Depression ??? Diabetes mellitus ([facility]) ??? Migraine, unspecified, without mention of intractable [...] [facility] Adult Primary Care - [address] [phone] Carrington Calderon MD [address] [phone] 02/27/2024 8:30 EDT Telemedicine [facility] Sleep Program - [address] [phone] Dwight Colbert [address] [place] [address] [phone] 02/29/2024 10:30 EDT Appointment [facility] Radiology Nuclear Medicine and PET - [address] [address] 02/29/2024 14:30 EDT Appointment [facility] Radiology Nuclear Medicine and PET - [address] [address] 03/01/2024 8:00 EDT Appointment [facility] Radiology Nuclear Medicine and PET - [address] [address] 03/01/2024 9:30 EDT Appointment [facility] Radiology Nuclear Medicine and PET [address] [phone] documented as of this encounter Visit Diagnoses Diagnosis Class 2 severe obesity due to excess calories with serious comorbidity in adult, unspecified BMI ([facility]) Type 2 diabetes mellitus with other specified complication, unspecified whether [facility] insulin use ([facility]) documented in this encounter Care Teams Per Diem Interpreter Relationship Specialty Start Date End Date None, Provider PCP - General 06/18/19 11/25/19 documented as of this encounter
--- OUTSIDE RECORDS SUMMARY | 2024-02-10 01:27 | XMS_ITS | Encounter Summary ---
Author Organization [facility] Address [address] [place] [address] Care Team Providers Care Drive Worker Name Role Phone None, Provider Primary [...] [facility] - [address] [phone] Carrington Calderon MD [address] [phone] 02/27/2024 8:30 EDT Telemedicine [facility] Sleep Program - [address] [address] Dwight Colbert [address] [place] [address] [phone] 02/29/2024 10:30 EDT Appointment [facility] Radiology Nuclear Medicine and PET [address] [phone] 02/29/2024 14:30 EDT Appointment [facility] Radiology Nuclear Medicine and PET [address] [phone] 03/01/2024 8:00 EDT Appointment [facility] Radiology Nuclear Medicine and PET [address] [phone] 03/01/2024 9:30 EDT Appointment [facility] Radiology Nuclear Medicine and PET [address] [phone] documented as of this encounter Visit Diagnoses Not on filedocumented in this encounter Care Teams Drive Worker Relationship Specialty Start Date End Date None, Provider PCP - General 06/18/19 11/25/19 documented as of this encounter
--- OUTSIDE RECORDS SUMMARY | 2024-02-10 01:27 | XMS_ITS | Encounter Summary ---
Author Organization [facility] Address [address] [place] [address] Care Team Providers Care Fence Machine Operator Name Role Phone None, Provider Primary Care Provider Unavailabl e Encounter Details Date Type Department Care Team (Late st Contact Info) Description 08/31/2019 8:45 EDT Phlebotomy Only [facility] ED Center 2 Phlebotomy [address] [place] [address] Mirror Maker, Acc Phlebotomy Ectopic , unspecified location, unspecified [...] [facility] Adult Primary Care - [address] [phone] Carrington Calderon MD [address] [address] 02/27/2024 8:30 EDT Telemedicine [facility] Sleep Program - [address] [phone] Dwight Colbert [address] [place] [address] [phone] 02/29/2024 10:30 EDT Appointment [facility] Radiology Nuclear Medicine and PET [address] [phone] 02/29/2024 14:30 EDT Appointment [facility] Radiology Nuclear Medicine and PET [address] [phone] 03/01/2024 8:00 EDT Appointment [facility] Radiology Nuclear Medicine and PET [address] [phone] 03/01/2024 9:30 EDT Appointment [facility] Radiology Nuclear Medicine and PET [address] [phone] documented as of this encounter Procedures Procedure Name Priority Date/Time Associated Diagnosis Comments QUANT BETA HCG, Routine 08/31/2019 8:45 EDT Ectopic , unspecified location, unspecified whether intrauterine present documented in this encounter Results * (ABNORMAL) QUANT BETA HCG, (08/31/2019 8:45 EDT) Beta HCG Quant, 316(H) <5 mIU/ml 08/31/2019 11:17 EDT [facility] Comment: NOTE: : Negative: Less than 5mIU/mL Indeterminant: Between 5 and 25 mIU/mL, recommend repeat testing in 48 hours Positive: Greater than 25 mIU/mL The results of this assay can be falsely lowered due to the consumption of Biotin. Blood 08/31/2019 8:45 EDT 08/31/2019 10:29 EDT Charu Flynn MD CHEMISTRY & BLOO D GAS ORDERABLES [facility] [address] [place] [address] documented in this encounter Visit Diagnoses Diagnosis Ectopic , unspecified location, unspecified whether intrauterine present affected by previous ectopic documented in this encounter Care Teams Fence Machine Operator Relationship Specialty Start Date End Date None, Provider PCP - General 06/18/19 11/25/19 documented as of this encounter
--- OUTSIDE RECORDS SUMMARY | 2024-02-10 01:27 | XMS_ITS | Encounter Summary ---
Author Organization [facility] Address [address] [place] [address] Care Team Providers Care Devil Tender Name Role Phone None, Provider Primary Care Provider Unavailabl e Reason for Referral * Consult (3 - 10 Business Days) - Closed Specialty Diagnoses / Procedures Referred By Contac t Referred To Contact Diagnoses in first trimester Andrés Mcfarlane MD 111 [facility], Level 1 [place] [address] [facility] Ep4 Ob/Mfm [address] [place] [address] Referral ID Status Reason Start Date Expiration Date V isits Requested Visits Authorized [id number] Closed Specialty Services Required 10/11/2019 1 1 Question Answer Reason for Request: Failed Reason for Visit * Reason Comments Vaginal Bleeding see tcall. Ambulator y into triage, 9.5wks , last night started with bright red bleeding I've changed the panty liner a few times since last night. Followed by [facility] civil engineering design draftsperson highrisk. Intermittent cramping. Hx 6 miscarriages. Encounter Details Date Type Department Care Team (Late st Contact Info) Description 10/11/2019 20:54 EDT - 10/12/2019 0:13 EDT Emergency [facility] Emergency Department - [address] [address] Kylah Whitaker PA-C 111 [facility], [facility] 1 [place] [address] Alessandro Delgadillo MD 111 [facility], [address] [address] in first trimester (Primary Dx) [...] you for coming to the ED at [facility] for your medical care. Whenever we [...] a failed . 2) Please follow-up with OIL PAINT SHADER. They should call you within 48 hours [...] or Self Half-Way documented in this encounter Consult Notes * Elise Larson MD - 10/11/2019 7117 EDT Department of Gynecology History & Physical [...] while on meds);no current mood issues. Past supervisor decorating Hx: See HPI. PMedHx: Past Medical History: [...] Socioeconomic History ??? Marital status: Spouse name: Ferimn Luo ??? Number of children: Not on [...] Last menstrual period: Per discussion with the ware finisher, patient is unsure. Per the most recent [...] for nonviable early in the first trimester. [place] Journal of Medicine 369.15 (2013): 0435-9879. ?? Assessment: Pt is a 34 y.o. [...] [facility] a [facility] procedure [facility] We discussed that if she wants a D&C in the main OR, she will have to be conscious of her NPO status tomorrow for an add on procedure. Alternatively, we can schedule her procedure for Tue. She confirms understanding. Will plan to let PARTS SALES COUNTERPERSON team and clinic staff know about our [...] with Dr. Lund. Elise Larson MD PGY-3, [facility] Pager [phone] 10/12/2019 1:22 Associated attestation - Mayra Lund MD - 10/12/2019 4429 EDT Attestation: I saw and examined the [...] Lund MD PhD MFM Fellow, PGY5 Pager #[phone] Mayra Lund MD 10/12/2019 7:55 documented in [...] conditions at the [facility] on 10/11/2019. This note was created [...] or abdominal pain. Patient called the on-call OIL PAINT SHADER and they instructed her to come here [...] to visualize the itself. Plan to follow OIL PAINT SHADER recommendations with CBC, type and screen, beta quant, transvaginalultrasound. Will consult OIL PAINT SHADER with the results and asked further direction. An EKG was obtained and independenly interpreted: NA Laboratory results independently reviewed, significant for: Quant beta 2954, leukocytosis of 17.66, antibody screen positive Imaging obtained was reviewed and independently interpreted: Transvaginal ultrasound demonstrated a failed intrauterine OIL PAINT SHADER was consulted when I was informed of [...] female a failed based on ultrasound, history. OIL PAINT SHADER was consulted who thought that she could be discharged home for definitive management in the clinic or ORtomorrow with D&C or medical expulsion therapy. Patient is very comfortable with this plan, herlabs are reassuring. She was discharged in stable condition with close OB follow-up; the RhoGam is l ikely still active from her last one as antibodies are noted ED Course: (5983) I evaluated the patient. Technical Support Specialist was at bedside discussing the results of [...] System [facility] Adult Primary Care [address] [address] Carrington Calderon MD [address] [address] 02/27/2024 8:30 EDT Telemedicine [facility] Sleep Program - [address] [address] Dwight Colbert [address] [place] [id number] 02/29/2024 10:30 EDT [facility] [address] [id number] 02/29/2024 14:30 EDT Appointment [facility] Radiology Nuclear Medicine and PET [address] [id number] 03/01/2024 8:00 EDT Appointment [facility] Radiology Nuclear Medicine and PET [address] [id number] 03/01/2024 9:30 EDT Appointment [facility] Radiology Nuclear Medicine and PET [address] [phone] Pending Results Name Type Priority Associated Diagnoses [...] for nonviable early in the first trimester. [place] Journal of Medicine 369.15 (2013): 7512-9284. I have personally reviewed the images and [...] Last menstrual period: Per discussion with the ware finisher, patient is unsure. Per the most recent [...] Last menstrual period: Per discussion with the ware finisher, patient isunsure. Per the most recent OB [...] for nonviablepregnancy early in the first trimester. [place] Journal of Zywlqjqd817.15 (2013): 7788-9397. I have personally reviewed the images and the above interpretation andagree with the findings. Andrés Mcfarlane MD IMG US OB ORDERAB LES * ANTIBODY IDENTIFICATION (10/11/2019 21:09 EDT) Antibody Identification Anti-D; patient recd RhIg 10/11/2019 23:41 EDT [facility] Blood VENOUS BLOOD / Unknown Venipuncture / Unknown 10/11/2019 21:09 EDT 10/11/2019 21:16 EDT Elise Charles MD BLOOD BANK TESTS Performing Organization Address City/[facility]/ZIP Co de Phone Number [facility] [address] [place] [address] * HN LAB DIFF PATH REVIEW - HEME (10/11/2019 21:09 EDT) Pathologist Review Comment 10/12/19 13:41 ?? Elise Hightower MD 10/12/2019 13:41 EDT [facility] Blood VENOUS BLOOD / Unknown Venipuncture / Unknown 10/11/2019 21:09 EDT 10/11/2019 21:13 EDT Andrés Mcfarlane MD HEMATOLOGY & PF4 ORDERABLES Performing Organization Address City/[facility]/ZIP Co de Phone Number [facility] [address] [place] [address] * TYPE AND SCREEN (10/11/2019 21:09 EDT) ABO B 10/11/2019 22:43 EDT [facility] Rh Factor Negative 10/11/2019 22:43 EDT [facility] Antibody Screen Positive 10/11/2019 22:43 EDT [facility] Specimen Expires: 10/14/2019 @ 23:59 10/11/2019 22:43 EDT [facility] Blood VENOUS BLOOD / Unknown Venipuncture / Unknown 10/11/2019 21:09 EDT 10/11/2019 21:16 EDT Elise Charles MD BLOOD BANK TESTS [facility] [address] [facility] [place] [address] * (ABNORMAL) DIFFERENTIAL, AUTOMATED MANUAL (10/11/2019 21:09 EDT) % Neutrophils 52.6 % 10/11/2019 23:25 [facility] % Lymphocytes 25.0 % 10/11/2019 23:25 [facility] % Atypical Lymphocytes 6.9 % 10/11/2019 23:25 [facility] % Monocytes 8.6 % 10/11/2019 23:25 [facility] % Eosinophils 5.2 % 10/11/2019 23:25 [facility] % Basophils 1.7 % 10/11/2019 23:25 [facility] Absolute Neutrophils 9.29(H) 2.20 - 8.85 K/cmm 10/11/2019 23:25 [facility] Absolute Lymphocytes 4.42(H) 1.09 - 3.30 K/cmm 10/11/2019 23:25 [facility] Absolute Atypical Lymphocytes 1.22 K/cmm 10/11/2019 23:25 [facility] Absolute Monocytes 1.52(H) 0.10 - 0.80 K/cmm 10/11/2019 23:25 [facility] Absolute Eosinophils 0.92(H) 0.03 - 0.61 K/cmm 10/11/2019 23:25 [facility] ABS Basophils 0.30(H) 0.01 - 0.11 K/cmm 10/11/2019 23:25 [facility] Blood VENOUS BLOOD / Unknown Venipuncture / Unknown 10/11/2019 21:09 EDT 10/11/2019 21:13 EDT Andrés Mcfarlane MD HEMATOLOGY & PF4 ORDERABLES Performing Organization Address [facility] de Phone Number [facility] [address] [place] [address] * (ABNORMAL) QUANT BETA HCG, (10/11/2019 21:09 EDT) Pathologist [facility] Beta HCG Quant, 2,954(H) <5 mIU/ml 10/11/2019 22:54 EDT [facility] Comment: NOTE: : [...] BLOOD GAS ORDERABLES Performing Organization Address [facility] de Phone Number [facility] [address] [place] [address] * (ABNORMAL) COMPLETE BLOOD COUNT AND DIFFERENTIAL (10/11/2019 21:09 EDT) Pathologist [facility] WBC 17.66(H) 4.00 - 12.40 K/cmm 10/11/2019 22:16 [facility] RBC 4.70 3.86 - 5.04 M/cmm 10/11/2019 22:16 [facility] Hemoglobin 14.4 11.6 - 15.2 gm/dL 10/11/2019 22:16 [facility] HCT 41.9 34.9 - 44.4 % 10/11/2019 22:16 [facility] MCV 89 81 - 98 fl 10/11/2019 22:16 [facility] MCH 30.6 26.7 - 33.3 pg 10/11/2019 22:16 [facility] MCHC 34.4 32.1 - 35.9 gm/dL 10/11/2019 22:16 [facility] RDW-CV 12.1 <14.7 % 10/11/2019 22:16 EDT [facility] RDW-SD 39.5 <50.4 fl 10/11/2019 22:16 EDT [facility] PLT 443(H) 141 - 377 K/cmm 10/11/2019 22:16 EDT [facility] MPV 9.5 9.5 - 12.7 fl 10/11/2019 22:16 EDT [facility] Type of Differential: Manual 10/11/2019 22:16 EDT [facility] Blood VENOUS BLOOD / Unknown Venipuncture / Unknown 10/11/2019 21:09 EDT 10/11/2019 21:13 EDT Andrés Mcfarlane MD PACKAGES & DNA ND OBE ORDERABLES Performing Organization Address City/[facility]/ZIP Co de Phone Number [facility] [address] [place] [address] * BLOOD BANK HOLD (10/11/2019 21:09 EDT) Hold BB Spec will exp at 23:59, 3 days from collect date 10/11/2019 21:31 EDT [facility] Blood VENOUS BLOOD / Unknown Venipuncture / Unknown 10/11/2019 21:09 EDT 10/11/2019 21:16 EDT Elise Charles MD BLOOD BANK TESTS Performing Organization Address City/[facility]/ZIP Co de Phone Number [facility] [address] [place] [address] * HOLD SST (10/11/2019 21:09 EDT) Hold Hold 10/11/2019 22:16 EDT [facility] Blood VENOUS BLOOD / Unknown Venipuncture / Unknown 10/11/2019 21:09 EDT 10/11/2019 21:13 EDT Elise Charles MD LAB INFO SERVICE A ND SUPPORT & PHONE RESULT [facility] [address] [place] [address] * HOLD LAVENDER TOP (10/11/2019 21:09 EDT) Hold Hold 10/11/2019 22:16 EDT [facility] Blood VENOUS BLOOD / Unknown Venipuncture / Unknown 10/11/2019 21:09 EDT 10/11/2019 21:13 EDT Elise Charles MD LAB INFO SERVICE A ND SUPPORT & PHONE RESULT [facility] [address] [place] [address] * HOLD GREEN TOP (10/11/2019 21:09 EDT) Hold Hold 10/11/2019 22:16 EDT [facility] Blood VENOUS BLOOD / Unknown Venipuncture / Unknown 10/11/2019 21:09 EDT 10/11/2019 21:13 EDT Elise Charles MD LAB INFO SERVICE A ND SUPPORT & PHONE RESULT [facility] [address] [place] [address] * HOLD BLUE TOP (10/11/2019 21:09 EDT) Hold Hold 10/11/2019 22:16 EDT [facility] Blood VENOUS BLOOD / Unknown Venipuncture / Unknown 10/11/2019 21:09 EDT 10/11/2019 21:13 EDT Elise Charles MD LAB INFO SERVICE A ND SUPPORT & PHONE RESULT [facility] [address] [place] [address] documented in this encounter Visit Diagnoses Diagnosis [...] RN) documented in this encounter Care Teams Devil Tender Relationship Specialty Start Date End Date None, Provider PCP - General 06/18/19 11/25/19 documented as of this encounter
--- OUTSIDE RECORDS SUMMARY | 2024-02-10 01:27 | XMS_ITS | Encounter Summary ---
Author Organization [facility] Address [address] [place] [address] Care Team Providers Care Spinning Mule Tender Name Role Phone None, Provider Primary Care Provider Unavailabl e Reason for Referral * MINE ANALYST (Routine) - Specialty Report Received Specialty Diagnoses / Procedures Referred By Contac t Referred To Contact Diagnoses of unknown anatomic location Procedures US OB FIRST TRIMESTER (LESS THAN 14 WEEKS) TRANSVAGINAL Charu Flynn MD [address] [place] [address], Level 4 [place] [address] Referral ID Status Reason Start Date Expiration Date V isits Requested Visits Authorized [id number] Specialty Report Received 09/03/2019 1 1 Reason for Visit * Reason Onset Date Comments Results 09/03/2019 Encounter Details Date Type Department Care Team (Late st Contact Info) Description 09/03/[address] [facility] OBGYN Services - [address] [address] Susana Tomlinson, MARCELO Results Social [...] Tomlinson RN - 09/03/[address] [facility]: asking if blood work results [...] using Lysol on everything & using hand clinical trials systems administrator. Advsied should put on a mask when arrives, tell screeners about cough, & will be directed appropriate. We will call her if there are any other directions. documented in this encounter Plan of Treatment Upcoming Encounters Date Type Department Care Team (Late st Contact Info) Description 02/21/2024 9:[address] [facility] Adult Primary Care - [address] [address] Carrington Calderon MD 1 [facility] 1 [place] [phone] 02/27/2024 8:[address] [facility] Sleep Program - [address] [address] Sayra Dwight [address] [place] [address] [phone] 02/29/2024 10:30 EDT Appointment [facility] Radiology Nuclear Medicine and PET [address] [id number] 02/29/2024 14:30 EDT Appointment [facility] Radiology Nuclear Medicine and PET [address] [id number] 03/01/2024 8:00 EDT Appointment [facility] Radiology Nuclear Medicine and PET [address] [phone] 03/01/2024 9:30 EDT Appointment [facility] Radiology Nuclear Medicine and PET [address] [phone] documented as of this encounter Results * [...] Sufficient. Impression 1st Trimester OB scan ,transvaginal +[id number] Single intrauterine gestational sac and yolk sac. [...] Sufficient. Impression 1st Trimester OB scan ,transvaginal +[id number] Single intrauterine gestational sac and yolk sac. [...] incidental documented in this encounter Care Teams Spinning Mule Tender Relationship Specialty Start Date End Date None, Provider PCP - General 06/18/19 11/25/19 documented as of this encounter
--- OUTSIDE RECORDS SUMMARY | 2024-02-10 01:27 | XMS_ITS | Encounter Summary ---
Author Organization [facility] Address [address] [place] [address] Care Team Providers Care Optometrist/Practice Owner Name Role Phone None, Provider Primary Care [...] [facility] - [address] 820531 Carrington Calderon MD [address] [address] 02/27/2024 8:30 EDT Telemedicine [facility] Sleep Program - [address] [address] Dwight Colbert [address] [place] [address] [phone] 02/29/2024 10:[address] [facility] Radiology Nuclear Medicine and PET [address] [id number] 02/29/2024 14:[address] [facility] Radiology Nuclear Medicine and PET [address] [id number] 03/01/2024 8:[address] [facility] Radiology Nuclear Medicine and PET [address] [phone] 03/01/2024 9:[address] [facility] Radiology Nuclear Medicine and PET [address] [phone] documented as of this encounter Visit Diagnoses Not on filedocumented in this encounter Care Teams Optometrist/Practice Owner Relationship Specialty Start Date End Date None, Provider PCP - General 06/18/19 11/25/19 documented as of this encounter
--- OUTSIDE RECORDS SUMMARY | 2024-02-10 01:27 | XMS_ITS | Encounter Summary ---
Author Organization [facility] Address [address] [place] [address] Care Team Providers Care Rn Ccu Name Role Phone None, Provider Primary Care [...] [facility] Adult Primary Care - [address] 418651 Carrington Calderon MD [address] [address] 02/27/2024 8:30 EDT Telemedicine [facility] Sleep Program - [address] [address] Dwight Colbert [address] [place] [address] [phone] 02/29/2024 10:30 EDT Appointment [facility] Radiology Nuclear Medicine and PET [address] [id number] 02/29/2024 14:30 EDT Appointment [facility] Radiology Nuclear Medicine and PET [address] [id number] 03/01/2024 8:00 EDT Appointment [facility] Radiology Nuclear Medicine and PET [address] [phone] 03/01/2024 9:30 EDT Appointment [facility] Radiology Nuclear Medicine and PET [address] [phone] documented as of this encounter Visit Diagnoses Not on filedocumented in this encounter Care Teams Rn Ccu Relationship Specialty Start Date End Date None, Provider PCP - General 06/18/19 11/25/19 documented as of this encounter
--- OUTSIDE RECORDS SUMMARY | 2024-02-10 01:27 | XMS_ITS | Encounter Summary ---
Author Organization [facility] Address [address] [place] [address] Care Team Providers Care Nanofabrication Specialist Name Role Phone None, Provider Primary Care Provider Unavailabl e Reason for Visit * Reason Onset Date Comments Vaginal Bleeding 10/02/2019 Encounter Details Date Type Department Care Team (Late st Contact Info) Description 10/02/2019 Telephone [facility] Obstetrics & Midwifery - [facility] [address] [place] [address] Jenny Heart, RN Vaginal Bleeding Social History [...] [facility] Adult Primary Care - [address] [address] Carrington Calderon MD 1 [facility] 1 [place] [address] 02/27/2024 8:30 EDT Telemedicine [facility] Sleep Program - [address] [address] ColbertDwight garner [address] [place] [place] [address] [phone] 02/29/2024 10:30 EDT [facility] Radiology Nuclear Medicine and PET - [address] [phone] 02/29/2024 14:30 EDT Appointment [facility] Radiology Nuclear Medicine and PET - [address] [phone] 03/01/2024 8:00 EDT Appointment [facility] Radiology Nuclear Medicine and PET [address] [id number] 03/01/2024 9:30 EDT Appointment [facility] Radiology Nuclear Medicine and PET [address] [phone] documented as of this encounter Visit Diagnoses Not on filedocumented in this encounter Care Teams Nanofabrication Specialist Relationship Specialty Start Date End Date None, Provider PCP - General 06/18/19 11/25/19 documented as of this encounter
--- OUTSIDE RECORDS SUMMARY | 2024-02-10 01:27 | XMS_ITS | Encounter Summary ---
Author Organization [facility] Address [address] [place] [address] Care Team Providers Care Cook Dinner Name Role Phone None, Provider Primary Care Provider Unavailabl e Reason for Visit * Reason Comments Procedure SARAH * Consult (3 - 10 Business Days) - Closed Specialty Diagnoses / Procedures Referred By Contac t Referred To Contact Diagnoses in first trimester Andrés Mcfarlane MD 111 [facility] 1 [place] [address] [facility] Ep4 Ob/Mfm [address] [place] [address] Referral ID Status Reason Start Date Expiration Date V isits Requested Visits Authorized [id number] Closed Specialty Services Required 10/11/2019 1 1 Encounter Details Date Type Department Care Team (Late st Contact Info) Description 10/12/2019 15:00 EDT Initial consult [facility] OBGYN Services - [address] [address] David Martínez MD 111 [facility] 4 [place] [address] Missed (Primary Dx) Social History [...] consent, the patient was placed on the [employer] exam table and a bedside ultrasound performed. [...] [facility] Adult Primary Care - [address] [address] Carrington Calderon MD [address] [address] 02/27/2024 8:30 EDT Telemedicine [facility] Sleep Program - [address] 016311 Dwight Colbert [address] [place] [address] [phone] 02/29/2024 10:30 EDT Appointment [facility] Radiology Nuclear Medicine and PET [address] [id number] 02/29/2024 14:30 EDT Appointment [facility] Radiology Nuclear Medicine and [address] [phone] 03/01/2024 8:00 EDT Appointment [facility] Radiology Nuclear Medicine and PET [address] [id number] 03/01/2024 9:30 EDT Appointment [facility] Radiology Nuclear Medicine and PET [address] [phone] documented as of this encounter Visit Diagnoses Diagnosis Missed - Primary documented in this encounter Care Teams Cook Dinner Relationship Specialty Start Date End Date None, Provider PCP - General 06/18/19 11/25/19 documented as of this encounter
--- OUTSIDE RECORDS SUMMARY | 2024-02-10 01:27 | XMS_ITS | Encounter Summary ---
Author Organization [facility] Address [address] [place] [address] Care Team Providers Care Optical Goods Drilling Machine Operator Name Role Phone Benita Shafer AGRICULTURAL ECONOMICS PROFESSOR Primary Care Provider [phone] Encounter Details Date Type Department Care Team (Late st Contact Info) Description 12/25/2018 Orders Only [facility] OBGYN Services - [address] [phone] Charu Flynn MD 111 [facility], Level 4 [place] [address] Social History Tobacco Use Types [...] [facility] - [address] [phone] Carrington Calderon MD [address] [phone] 02/27/2024 8:30 EDT Telemedicine [facility] Sleep Program - [address] [phone] Dwight Colbert [address] [place] [address] [phone] 02/29/2024 10:[address] [facility] Radiology Nuclear Medicine and PET [address] [phone] 02/29/2024 14:[address] [facility] Radiology Nuclear Medicine and PET [address] [phone] 03/01/2024 8:[address] [facility] Radiology Nuclear Medicine and PET [address] [phone] 03/01/2024 9:[address] [facility] Radiology Nuclear Medicine and PET [address] [phone] documented as of this encounter Procedures Procedure Name Priority Date/Time Associated Diagnosis Comments QUANT BETA HCG, Routine 12/13/2018 6:27 EDT documented in this encounter Results * QUANT BETA HCG, (12/13/2018 6:27 EDT) HCG, External 13.63 2.39 - 15,000 mIU/mL [facility] Comment:Please see the scann ed report in EPIC for further interpretation. Blood specimen (specimen) 12/13/2018 6:27 EDT Charu Flynn MD CHEMISTRY & BLOO D GAS ORDERABLES [facility] documented in this encounter Visit Diagnoses Not on filedocumented in this encounter Care Teams Optical Goods Drilling Machine Operator Relationship Specialty Start Date End Date Benita Shafer NP PCP - General 08/22/18 06/17/19 documented as of this encounter
--- OUTSIDE RECORDS SUMMARY | 2024-02-10 01:27 | XMS_ITS | Encounter Summary ---
Author Organization [facility] Address [address] [place] [address] Care Team Providers Care Purchasing And Fiscal Clerk Name Role Phone None, Provider Primary Care Provider Unavailabl e Reason for Visit * Reason Onset Date Comments Advice Only 10/02/2019 Encounter Details Date Type Department Care Team (Late st Contact Info) Description 10/02/2019 Telephone [facility] OBGYN Services - [address] [phone] Deepali Le MD 111 [facility], Level 4 [place] [address] Advice Only Social History Tobacco [...] Also- is she interested in CF/SMA testing? [facility] phone number left and requested patient call back. * Telephone Encounter - Cynthia Costello - 10/02/2019 0836 EDT I called pt this morning to inform her of 3 scheduled appts (1 nutrition, 1 ultrasound and 1 routine ). She said yes to all three but asked if she would be getting bloodwork done at the visit(s) at the end on October, around her 12wk zandra. She would like to discuss this with a nurse. She can be reached at: [phone] documented in this encounter Plan of Treatment Upcoming Encounters Date Type Department Care Team (Late st Contact Info) Description 02/21/2024 9:45 EDT Office Visit [facility] Adult Primary Care - [address] 960401 Carrington Calderon MD 1 [facility] Level 1 [place] [phone] 02/27/2024 8:30 EDT Telemedicine [facility] Sleep Program - [address] [place] [address] Dwight Colbert [address] [place] [address] 02/29/2024 10:30 EDT Appointment [facility] Radiology Nuclear Medicine and PET - [address] [address] 02/29/2024 14:30 EDT Appointment [facility] Radiology Nuclear Medicine and PET [address] [id number] 03/01/2024 8:00 EDT Appointment [facility] Radiology Nuclear Medicine and PET [address] [phone] 03/01/2024 9:30 EDT Appointment [facility] Radiology Nuclear Medicine and PET - [address] 103451 documented as of this encounter Visit Diagnoses Not on filedocumented in this encounter Care Teams Purchasing And Fiscal Clerk Relationship Specialty Start Date End Date None, Provider PCP - General 06/18/19 11/25/19 documented as of this encounter
--- OUTSIDE RECORDS SUMMARY | 2024-02-10 01:27 | XMS_ITS | Encounter Summary ---
Author Organization [facility] Address [address] [place] [address] Care Team Providers Care Statistical Clerk Advertising Name Role Phone None, Provider Primary Care Provider Unavailabl e Reason for Visit * Reason Onset Date Comments Vaginal Bleeding 10/11/2019 Encounter Details Date Type Department Care Team (Late st Contact Info) Description 10/11/2019 Telephone [facility] OBGYN [address] [place], [place] [phone] Mayra Lund MD [address] [place] [address] Vaginal Bleeding Social History Tobacco [...] Lund MD PhD M Fellow, PGY5 Pager #[phone] documented in this encounter Plan of Treatment Upcoming Encounters Date Type Department Care Team (Late st Contact Info) Description 02/21/2024 9:45 EDT Office Visit [facility] Adult Primary Care - [address] 465341 Carrington Calderon MD [address] [phone] 02/27/2024 8:30 EDT Telemedicine [facility] Sleep Program - [address] 595381 Dwight Colbert [address] [place], [place] 180661 02/29/2024 10:30 EDT Appointment [facility] Radiology Nuclear Medicine and PET - [address] [address] 02/29/2024 14:30 EDT Appointment [facility] Radiology Nuclear Medicine and PET [address] [address] 03/01/2024 8:00 EDT Appointment [facility] Radiology Nuclear Medicine and PET [address] [address] 03/01/2024 9:30 EDT Appointment [facility] Radiology Nuclear Medicine and PET [address] [address] documented as of this encounter Visit Diagnoses Not on filedocumented in this encounter Care Teams Statistical Clerk Advertising Relationship Specialty Start Date End Date None, Provider PCP - General 06/18/19 11/25/19 documented as of this encounter
--- OUTSIDE RECORDS SUMMARY | 2024-02-10 01:27 | XMS_ITS | Encounter Summary ---
Author Organization [facility] Address [address] [place] [address] Care Team Providers Care Sewing Department Supervisor Name Role Phone None, Provider Primary Care Provider Unavailabl e Reason for Visit * Reason Onset Date Comments Other 10/15/2019 Encounter Details Date Type Department Care Team (Late st Contact Info) Description 10/15/2019 Telephone [facility] OBGYN Services - [facility] [address] [place] [address] Jordyn Wolfe, MARCELO Other Social History Tobacco [...] [facility] Primary Care - [address] 092521 Carrington Calderon MD [address] [phone] 02/27/2024 8:30 EDT Telemedicine [facility] Sleep Program - [address] 827361 Dwight Colbert [address] [place] [address] [phone] 02/29/2024 10:30 EDT Appointment [facility] Radiology Nuclear Medicine and PET - [address] 294211 02/29/2024 14:30 EDT Appointment [facility] Radiology Nuclear Medicine and PET - [facility] [address] [place], [place] 904761 03/01/2024 8:00 EDT Appointment [facility] Radiology Nuclear Medicine and PET [address] [id number] 03/01/2024 9:30 EDT Appointment [facility] Radiology Nuclear Medicine and PET [address] [phone] documented as of this encounter Visit Diagnoses Not on filedocumented in this encounter Care Teams Sewing Department Supervisor Relationship Specialty Start Date End Date None, Provider PCP - General 06/18/19 11/25/19 documented as of this encounter
--- OUTSIDE RECORDS SUMMARY | 2024-02-10 01:27 | XMS_ITS | Encounter Summary ---
Author Organization [facility] Address [address] [place] [address] Care Team Providers Care Hand Cell Tuber Name Role Phone None, Provider Primary Care Provider Unavailabl e Reason for Visit * Reason Onset Date Comments Other 10/12/2019 Follow up call , seen in ED with vaginal bleeding, miscarriage. Encounter Details Date Type Department Care Team (Late st Contact Info) Description 10/12/2019 Telephone [facility] OBGYN Services - [facility] [address] [place] [address] Jordyn Wolfe, MARCELO Other (Follow up call [...] do this today. Per communication with nurse ship manager Mary, will be able to staff procedure today. Appointment set up for [address] Martínez will call patient to confirm plan. * Telephone Encounter - Jordyn Wolfe RN - 10/12/2019 1027 EDT Call to social work case manager Niru Diaz. Niru will call patient as follow up assessment counselor to miscarriage. * Telephone Encounter - [...] [facility] Adult Primary Care - [address] 110441 Carrington Calderon MD [address] [address] 02/27/2024 8:30 EDT Telemedicine [facility] Sleep Program - [address] [address] Dwight Colbert [address] [place] [address] [phone] 02/29/2024 10:[address] [facility] Radiology Nuclear Medicine and PET - [address] 144641 02/29/2024 14:[address] [facility] Radiology Nuclear Medicine and PET - [address] [id number] 03/01/2024 8:[address] [facility] Radiology Nuclear Medicine and PET - [address] 105721 03/01/2024 9:30 EDT Appointment [facility] Radiology Nuclear [place] [address] documented as of this encounter Visit Diagnoses Not on filedocumented in this encounter Care Teams Hand Cell Tuber Relationship Specialty Start Date End Date None, Provider PCP - General 06/18/19 11/25/19 documented as of this encounter
--- OUTSIDE RECORDS SUMMARY | 2024-02-10 01:27 | XMS_ITS | Encounter Summary ---
Author Organization [facility] Address [address] [place] [address] Care Team Providers Care Furniture Packer Name Role Phone None, Provider Primary Care Provider Unavailabl e Reason for Visit * Reason Onset Date Comments Appointment Related 10/12/2019 Encounter Details Date Type Department Care Team (Late st Contact Info) Description 10/12/2019 Telephone [facility] OBGYN Services - [facility] [address] [place] [address] Karoline Wolfe, MARCELO Appointment Related Social History [...] Call to patient. I spoke to patient. project manager process development Mary Hurtado and Dr. Martínez approve if [...] [facility] Adult Primary Care - [address] 985271 Carrington Calderon MD 1 [facility] 1 [place] [phone] 02/27/2024 8:30 EDT Telemedicine [facility] Sleep Program - [address] [phone] Dwight Colbert [address] [place] [address] [phone] 02/29/2024 10:30 EDT Appointment [facility] Radiology Nuclear Medicine and PET - [address] [address] 02/29/2024 14:30 EDT Appointment [facility] Radiology Nuclear Medicine and PET - [address] [address] 03/01/2024 8:00 EDT Appointment [facility] Radiology Nuclear Medicine and PET - [address] [address] 03/01/2024 9:30 EDT Appointment [facility] Radiology Nuclear Medicine and PET - [address] [address] documented as of this encounter Visit Diagnoses Diagnosis Recurrent loss- Primary documented in this encounter Care Teams Furniture Packer Relationship Specialty Start Date End Date None, Provider PCP - General 06/18/19 11/25/19 documented as of this encounter
--- OUTSIDE RECORDS SUMMARY | 2024-02-10 01:27 | XMS_ITS | Encounter Summary ---
Author Organization [facility] Address [address] [place] [address] Care Team Providers Care Bow Making Machine Operator Name Role Phone None, Provider Primary Care Provider Unavailabl e Reason for Visit * Reason Onset Date Comments 08/30/2019 Encounter Details Date Type Department Care Team (Late st Contact Info) Description 08/30/2019 Telephone [facility] OBGYN Services - [address] [address] Nilda Parisi RN Social History Tobacco Use [facility] - [address] 762341 Carrington Calderon MD [address] [phone] 02/27/2024 8:30 EDT Telemedicine [facility] Sleep Program - [address] 304181 Dwight Colbert [address] [place] [address] 223461 02/29/2024 10:30 EDT Appointment [facility] Radiology Nuclear Medicine and PET - [address] [id number] 02/29/2024 14:30 EDT Appointment [facility] Radiology Nuclear Medicine and PET - [address] 366271 03/01/2024 8:00 EDT Appointment [facility] Radiology Nuclear Medicine and PET - [address] [phone] 03/01/2024 9:30 EDT Appointment [facility] Radiology Nuclear Medicine and PET - [address] [phone] documented as of this encounter Visit Diagnoses Not on filedocumented in this encounter Care Teams Bow Making Machine Operator Relationship Specialty Start Date End Date None, Provider PCP - General 06/18/19 11/25/19 documented as of this encounter
--- OUTSIDE RECORDS SUMMARY | 2024-02-10 01:27 | XMS_ITS | Encounter Summary ---
Author Organization [facility] Address [address] [place] [address] Care Team Providers Care Parts Expediter Name Role Phone Benita Shafer COUNTER ROLLER Primary Care Provider [phone] Reason for Visit * Reason Comments Social Work Encounter Details Date Type Department Care Team (Late st Contact Info) Description 01/03/2019 Community Health Team [facility] OBGYN Services - [address] [address] Eryn Diaz Social History Tobacco Use Types [...] as of this encounter Progress Notes * RegEryn de la torre - 01/03/2019 1021 EDT Care coord with [...] to inform her that her next [facility]ts [facility] on 01/10 and03/02 (left vm). [...] [facility] Adult Primary Care - [address] 039651 Carrington Calderon MD 1 [facility] 1 [place] [phone] 02/27/2024 8:30 EDT Telemedicine [facility] Sleep Program - [address] [phone] Dwight Colbert [address] [place] [address] [phone] 02/29/2024 10:30 EDT Appointment [facility] Radiology Nuclear Medicine and PET - [address] [phone] 02/29/2024 14:30 EDT Appointment [facility] Radiology Nuclear Medicine and PET [address] [address] 03/01/2024 8:00 EDT Appointment [facility] Radiology Nuclear Medicine and PET [address] [address] 03/01/2024 9:30 EDT Appointment [facility] Radiology Nuclear Medicine and PET [address] [address] documented as of this encounter Visit Diagnoses Not on filedocumented in this encounter Care Teams Parts Expediter Relationship Specialty Start Date End Date Benita Shafer NP PCP - General 08/22/18 06/17/19 documented as of this encounter
--- OUTSIDE RECORDS SUMMARY | 2024-02-10 01:27 | XMS_ITS | Encounter Summary ---
Author Organization [facility] Address [address] [place] [address] Care Team Providers Care Supervisor Real Estate Office Name Role Phone Benita Shafer GUSTAVO Primary Care Provider [phone] Reason for Visit * Reason Onset Date Comments Appointment Related 03/02/2019 Encounter Details Date Type Department Care Team (Late st Contact Info) Description 03/02/2019 Telephone [facility] Obstetrics & Midwifery - [facility] [address] [place], [place] 148701 Deborah Prakash MD [address] [facility], Level 4 [place] [address] Appointment Related Social History Tobacco [...] [facility] - [address] [phone] Carrington Calderon MD [address] [phone] 02/27/2024 8:30 EDT Telemedicine [facility] Sleep Program - [address] [address] Dwight Colbert [address] [place] [address] [phone] 02/29/2024 10:30 EDT Appointment [facility] Radiology Nuclear Medicine and PET - [address] [id number] 02/29/2024 14:30 EDT Appointment [facility] Radiology Nuclear Medicine and PET - [address] [phone] 03/01/2024 8:[address] [facility] Radiology Nuclear Medicine and PET - [address] [phone] 03/01/2024 9:30 EDT Appointment [facility] Radiology Nuclear Medicine and PET - [address] [address] documented as of this encounter Visit Diagnoses Not on filedocumented in this encounter Care Teams Supervisor Real Estate Office Relationship Specialty Start Date End Date Benita Shafer NP PCP - General 08/22/18 06/17/19 documented as of this encounter
--- OUTSIDE RECORDS SUMMARY | 2024-02-10 01:27 | XMS_ITS | Encounter Summary ---
Author Organization [facility] Address [address] [place] [address] Care Team Providers Care Toll Bridge Operator Name Role Phone None, Provider Primary Care Provider Unavailabl e Encounter Details Date Type Department Care Team (Late st Contact Info) Description 10/04/2019 Orders Only [facility] Obstetrics & Midwifery - [address] [address] Kylah Jimenes, RN Social History Tobacco Use [...] [facility] Adult Primary Care - [address] [address] Carrington Calderon MD [address] [phone] 02/27/2024 8:30 EDT Telemedicine [facility] Sleep Program - [address] [phone] Dwight Colbert [address] [place] [address] 809491 02/29/2024 10:30 EDT Appointment [facility] Radiology Nuclear Medicine and PET [address] 994451 02/29/2024 14:30 EDT Appointment [facility] Radiology Nuclear Medicine and PET [address] 286311 03/01/2024 8:00 EDT Appointment [facility] Radiology Nuclear Medicine and PET [address] 154081 03/01/2024 9:30 EDT Appointment [facility] Radiology Nuclear Medicine and PET [address] [phone] documented as of this encounter Visit Diagnoses Not on filedocumented in this encounter Care Teams Toll Bridge Operator Relationship Specialty Start Date End Date None, Provider PCP - General 06/18/19 11/25/19 documented as of this encounter
--- OUTSIDE RECORDS SUMMARY | 2024-02-10 01:27 | XMS_ITS | Encounter Summary ---
Author Organization [facility] Address [address] [place] [address] Care Team Providers Care Supervisor Cutting And Sewing Room Name Role Phone None, Provider Primary Care Provider Unavailabl e Reason for Visit * Reason Comments Social Work Encounter Details Date Type Department Care Team (Late st Contact Info) Description 10/12/2019 Community Health Team [facility] OBGYN Services - [address] [address] Eryn Diaz Social History Tobacco Use Types [...] step francois, and 3 foster children in [place]. Pt grateful Fermin took the children to [...] the following re care coordination: - Disc [facility] therapeutic group practice in [place] that specializes in working with women who have exp losses - Disc psychiatric and add'l loss support that can be provided via [facility] Denita Brantley or Dr. 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 Fermin is a mechanical engineering director ($15/hour) and still working. SW disc it's [...] copy Jordyn and David as a fyi. [facility] Total Time: 55 min total 20 min via ph with pt 20 min care coord 15 min charting Referral: n/a Follow up: Date: Wednesday, October 16, 2019 Time: 11:30 AM With: Eryn Diaz Rumper Location: ph Status: Active documented in this encounter Plan of Treatment Upcoming Encounters Date Type Department Care Team (Late st Contact Info) Description 02/21/2024 9:45 EDT Office Visit [facility] Adult Primary Care - [address] [phone] Carrington Calderon MD [address] [phone] 02/27/2024 8:30 EDT Telemedicine [facility] Sleep Program - [address] 554991 Dwight Colbert [address] [place] [address] [phone] 02/29/2024 10:30 EDT Appointment [facility] Radiology Nuclear Medicine and PET [address] [phone] 02/29/2024 14:30 EDT Appointment [facility] Radiology Nuclear Medicine and PET - [address] [phone] 03/01/2024 8:00 EDT Appointment [facility] Radiology Nuclear Medicine and PET [address] [phone] 03/01/2024 9:30 EDT Appointment [facility] Radiology Nuclear Medicine and PET [address] [phone] documented as of this encounter Visit Diagnoses Not on filedocumented in this encounter Care Teams Supervisor Cutting And Sewing Room Relationship Specialty Start Date End Date None, Provider PCP - General 06/18/19 11/25/19 documented as of this encounter
--- OUTSIDE RECORDS SUMMARY | 2024-02-10 01:27 | XMS_ITS | Encounter Summary ---
Author Organization [facility] Address [address] [place] [address] Care Team Providers Care Cotton Grader Name Role Phone None, Provider Primary Care Provider Unavailabl e Encounter Details Date Type Department Care Team (Late st Contact Info) Description 09/05/2019 Orders Only [facility] Obstetrics Services - [address] [address] Jonas Ojeda MD [address] [place] [address] [phone] Less than 8 weeks gestation [...] [facility] - [address] [address] Carrington Calderon MD [address] [phone] 02/27/2024 8:30 EDT Telemedicine [facility] Sleep Program - [address] 102571 Dwight Colbert [address] [place] [address] 216271 02/29/2024 10:30 EDT Appointment [facility] Radiology Nuclear Medicine and PET [address] [phone] 02/29/2024 14:30 EDT Appointment [facility] Radiology Nuclear Medicine and PET [address] [id number] 03/01/2024 8:00 EDT Appointment [facility] Radiology Nuclear Medicine and PET [address] [id number] 03/01/2024 9:30 EDT Appointment [facility] Radiology Nuclear Medicine and PET [address] [phone] documented as of this encounter Visit Diagnoses Diagnosis Less than 8 weeks gestation of - Primary state, incidental documented in this encounter Care Teams Cotton Grader Relationship Specialty Start Date End Date None, Provider PCP - General 06/18/19 11/25/19 documented as of this encounter
--- OUTSIDE RECORDS SUMMARY | 2024-02-10 01:27 | XMS_ITS | Encounter Summary ---
Author Organization [facility] Address [address] [place] [address] Care Team Providers Care Rice Dryer Mechanic Name Role Phone None, Provider Primary Care Provider Unavailabl e Reason for Visit * Reason Onset Date Comments Results 08/31/2019 Encounter Details Date Type Department Care Team (Late st Contact Info) Description 08/31/2019 Telephone [facility] OBGYN Services - [address] [address] Susana Tomlinson, RN Results Social History Tobacco [...] Encounter - Susana Tomlinson RN - 08/31/2019 2207 EDT Spoke with Cristy: advised HCG from [...] call us with any concerns or questions. MANAGER MANAGEMENT nurse line [phone], or after hours MD line [phone]. documented in this encounter Plan of Treatment Upcoming Encounters Date Type Department Care Team (Late st Contact Info) Description 02/21/2024 9:45 EDT Office Visit [facility] Adult Primary Care - [address] [address] Carrington Calderno MD 1 [facility] 1 [place] [address] 02/27/2024 8:30 EDT Telemedicine [facility] Sleep Program - [address] [address] ColbertDwight garner [address] [place] [phone] 02/29/2024 10:30 EDT [facility] Radiology Nuclear Medicine and PET - [address] [address] 02/29/2024 14:30 EDT Appointment [facility] Radiology Nuclear Medicine and PET [address] 834271 03/01/2024 8:00 EDT Appointment [facility] Radiology Nuclear Medicine and PET - [address] [phone] 03/01/2024 9:30 EDT Appointment [facility] Radiology Nuclear Medicine and PET [address] [phone] documented as of this encounter Visit Diagnoses Not on filedocumented in this encounter Care Teams Rice Dryer Mechanic Relationship Specialty Start Date End Date None, Provider PCP - General 06/18/19 11/25/19 documented as of this encounter
--- OUTSIDE RECORDS SUMMARY | 2024-02-10 01:27 | XMS_ITS | Encounter Summary ---
Author Organization [facility] Address [address] [place] [address] Care Team Providers Care Senior Office Assistant Name Role Phone None, Provider Primary Care Provider Unavailabl e Reason for Referral * REFRIGERATION MANAGER (Routine) - Specialty Report Received Specialty Diagnoses / Procedures Referred By Contac t Referred To Contact Diagnoses of unknown anatomic location Procedures US OB FIRST TRIMESTER (LESS THAN 14 WEEKS) TRANSVAGINAL Charu Flynn MD [address] [place] [phone] Referral ID Status Reason Start Date Expiration Date V isits Requested Visits Authorized [id number] Specialty Report Received 09/03/2019 1 1 Reason for Visit * REFRIGERATION MANAGER (Routine) - Specialty Report Received Specialty Diagnoses / Procedures Referred By Contac t Referred To Contact Diagnoses of unknown anatomic location Procedures US OB FIRST TRIMESTER (LESS THAN 14 WEEKS) TRANSVAGINAL Charu Flynn MD [address] [address] Referral ID Status Reason Start Date Expiration Date V isits Requested Visits Authorized [id number] Specialty Report Received 09/03/2019 1 1 Encounter Details Date Type Department Care Team (Latest Contact Info) Description 09/05/2019 10:26 EDT - 09/06/2019 23:59 EDT Hospital Encounter [facility] Obstetrics Services - [address] [address] of unknown anatomic location Discharge Disposition: Home [...] Visit [facility] Adult Primary Care - [address] [phone] Carrington Calderon MD [address] [address] 02/27/2024 8:30 EDT Telemedicine [facility] Sleep Program - [address] 679101 Dwight Colbert [address] [place] [phone] 02/29/2024 10:30 EDT Appointment [facility] Radiology Nuclear Medicine and PET - [address] [phone] 02/29/2024 14:30 EDT Appointment [facility] Radiology Nuclear Medicine and PET - [address] [phone] 03/01/2024 8:00 EDT Appointment [facility] Radiology Nuclear Medicine and PET [address] [phone] 03/01/2024 9:30 EDT Appointment [facility] Radiology Nuclear Medicine and PET [address] [phone] documented as of this encounter Procedures Procedure [...] Sufficient. Impression 1st Trimester OB scan ,transvaginal +[id number] Single intrauterine gestational sac and yolk sac. [...] Sufficient. Impression 1st Trimester OB scan ,transvaginal +[id number] Single intrauterine gestational sac and yolk sac. A pole cannot beclearly identified on today's examination. Follow-up follow up US in 2 weeks. Comment ========= Z34.8 encounter for supervision of other normal . Resultsdiscussed w/patient. DATE OF SERVICE: 09/05/2019 Charu Flynn MD [facility] OB ORDERA BLES documented in this encounter Visit Diagnoses Diagnosis of unknown anatomic location state, incidental documented in this encounter Care Teams Senior Office Assistant Relationship Specialty Start Date End Date None, Provider PCP - General 06/18/19 11/25/19 documented as of this encounter
--- OUTSIDE RECORDS SUMMARY | 2024-02-10 01:27 | XMS_ITS | Encounter Summary ---
Author Organization [facility] Address [address] [place] [address] Care Team Providers Care Potato Peeling Machine Operator Name Role Phone None, Provider [...] Visit [facility] Adult Primary Care - [address] 901251 Carrington Calderon MD [address] [address] 02/27/2024 8:30 EDT Telemedicine [facility] Sleep Program - [address] [address] Dwight Colbert [address] [place] [phone] 02/29/2024 10:30 EDT Appointment [facility] Radiology Nuclear Medicine and PET [address] [id number] 02/29/2024 14:30 EDT Appointment [facility] Radiology Nuclear Medicine and PET [address] [id number] 03/01/2024 8:00 EDT Appointment [facility] Radiology Nuclear Medicine and PET [address] [phone] 03/01/2024 9:30 EDT Appointment [facility] Radiology Nuclear Medicine and PET [address] [phone] documented as of this encounter Visit Diagnoses Not on filedocumented in this encounter Care Teams Potato Peeling Machine Operator Relationship Specialty Start Date End Date None, Provider PCP - General 06/18/19 11/25/19 documented as of this encounter
--- OUTSIDE RECORDS SUMMARY | 2024-02-10 01:27 | XMS_ITS | Encounter Summary ---
Author Organization [facility] Address [address] [place] [address] Care Team Providers Care Computerized Table Cutter Name Role Phone None, Provider Primary Care Provider Unavailabl e Reason for Visit * Reason Comments Social Work Encounter Details Date Type Department Care Team (Late st Contact Info) Description 10/16/[address] [facility] OBGYN Services - [address] [address] Eryn Diaz Social History Tobacco Use Types [...] lbs. Pt said [facility] ([facility]ft) that she believes caused SI/SP. Pt rep she was on a bridge in [place] and about to jump to lots of [...] SW rec pt at least check out [employer]'s website - described this thx practice was [...] to facilitate record request. Jordyn will submit [facility] SW referral later this week; SW will zandra pt status as pending for now. Next SW appt 11/04 via ph. SW will email pt zoom meeting info ([email or web address] [facility] Total Time: 1 hour total 35 min via ph with pt 10 min care coord 15 min charting Referral: Yobany José and PMHNP Denita Brantley Follow up: Date: Tuesday, November 05, 2019 Time: 10 AM With: Eryn Diaz Bag Loader Location: ph Status: Pending documented in this encounter Plan of Treatment Upcoming Encounters Date Type Department Care Team (Late st Contact Info) Description 02/21/2024 9:[address] [facility] Adult Primary Care - [address] 366[address] Carrington Calderon MD [address] [place] [phone] 02/27/2024 8:[address] [facility] Sleep Program - [address] [phone] Dwight Colbert [address] [place], [place] 285431 02/29/2024 10:30 ED[facility] [address] [address] 02/29/2024 14:30 EDT Appointment [facility] Radiology Nuclear Medicine and PET [address] [address] 03/01/2024 8:00 EDT Appointment [facility] Radiology Nuclear Medicine and PET [address] [address] 03/01/2024 9:30 EDT Appointment [facility] Radiology Nuclear Medicine and PET [address] [address] documented as of this encounter Visit Diagnoses Not on filedocumented in this encounter Care Teams Computerized Table Cutter Relationship Specialty Start Date End Date None, Provider PCP - General 06/18/19 11/25/19 documented as of this encounter
--- OUTSIDE RECORDS SUMMARY | 2024-02-10 01:27 | XMS_ITS | Encounter Summary ---
Author Organization [facility] Address [address] [place] [address] Care Team Providers Care Director Of In Service Education Name Role Phone None, Provider Primary Care [...] Office Visit [facility] Adult Primary Care - [address] 714671 Carrington Calderon MD 1 [facility] 1 [place] [address] 02/27/2024 8:30 EDT Telemedicine [facility] Sleep Program - [address] 866121 Dwight Colbert [address] [place] [address] [phone] 02/29/2024 10:30 EDT Appointment [facility] Radiology Nuclear Medicine and PET - [address] 238341 02/29/2024 14:30 EDT Appointment [facility] Radiology Nuclear Medicine and PET [address] 260991 03/01/2024 8:00 EDT Appointment [facility] Radiology Nuclear Medicine and PET [address] [phone] 03/01/2024 9:30 EDT Appointment [facility] Radiology Nuclear Medicine and PET [address] [phone] documented as of this encounter Visit Diagnoses Not on filedocumented in this encounter Care Teams Director Of In Service Education Relationship Specialty Start Date End Date None, Provider PCP - General 06/18/19 11/25/19 documented as of this encounter
--- OUTSIDE RECORDS SUMMARY | 2024-02-10 01:27 | XMS_ITS | Encounter Summary ---
Author Organization [facility] Address [address] [place] [address] Care Team Providers Care Cargo Mate Name Role Phone None, Provider Primary Care Provider Unavailabl e Reason for Visit * Reason Comments Initial Visit Encounter Details Date Type Department Care Team (Late st Contact Info) Description 10/01/2019 15:00 EDT Telemedicine [facility] Obstetrics & Midwifery - [address] [phone] Deepali Le MD [address] [place] [address], Level [address] [place] [address] with type 2 diabetes mellitus [...] Mayra Lund MD - 10/01/2019 1500 EDT [facility] Maternal Medicine History & Physical Cristy [...] has ranged from 8.8-11.2. Hasn't seen an finish inspector in about a year due to some [...] 10w4d ECTOPIC Comments: interstitial diagnosed at [facility]; given MTX 10/26/18 6 SAB 01/2018 6w0d SAB Comments: D&C at [facility] after nonviable on US; had to have repeat D&Bhavna November for retained POCs 5 06/2017 6w0d SAB Comments: D&C at [facility]; nonviable seen on US; fourth with current 4 SAB 02/2017 6w0d SAB Comments: D&C at [facility]; third with current 3 SAB 08/2015 10w0d SAB Comments: D&C at [facility]; 2nd with current 2 SAB 01/2015 9w0d SAB Comments: D&C at [facility]; first current 1 SAB 2005 6w0d SAB Comments: first ; ex ; twin confirmed by US at [facility]; no medical or surgical tx Past gynecological history: Regular monthly periods. Last Pap in January 2019 reports normal, never had abnormal Pap. No STIs. Past medical history: Cristy has a past medical history of Depression, Diabetes mellitus ([facility]), Migraine, unspecified, without mention of intractable [...] the family. FOB great uncles all had SD under age 35. FOB twin brother at [...] - Reviewed [facility] group practice and clinic flow. - labs [...] Lund MD PhD MFM Fellow, PGY5 Pager #[phone] Today's visit was provided through telemedicine audio-visual [...] application used to conduct the visit was [employer]. I spent a total of 15 minutes [...] - Reviewed [facility] group practice and clinic flow. - labs [...] [facility] - [address] [phone] Carrington Calderon MD [address] [phone] 02/27/2024 8:30 EDT Telemedicine [facility] Sleep Program - [address] 609761 Dwight Colbert [address] [place] [address] [phone] 02/29/2024 10:30 EDT Appointment [facility] Radiology Nuclear Medicine and PET - [address] 794221 02/29/2024 14:30 EDT Appointment [facility] Radiology Nuclear Medicine and PET - [address] [phone] 03/01/2024 8:00 EDT Appointment [facility] Radiology Nuclear Medicine and PET - [address] [address] 03/01/2024 9:30 EDT Appointment [facility] Radiology Nuclear Medicine and PET - [address] [address] documented as of this encounter Visit Diagnoses [...] documented as of this encounter Care Teams Cargo Mate Relationship Specialty Start Date End Date None, Provider PCP - General 06/18/19 11/25/19 documented as of this encounter
--- OUTSIDE RECORDS SUMMARY | 2024-02-10 01:27 | XMS_ITS | Encounter Summary ---
Author Organization [facility] Address [address] [place] [address] Care Team Providers Care Harness Cleaner Name Role Phone None, Provider Primary Care Provider Unavailabl e Reason for Visit * SUPERVISING FLOORPERSON (Routine) - Order Cancelled Specialty Diagnoses / Procedures Referred By Contac t Referred To Contact Diagnoses Less than 8 weeks gestation of Procedures US OB FIRST TRIMESTER (LESS THAN 14 WEEKS) TRANSVAGINAL Jonas Ojeda MD [address] [place] [address] [phone] Referral ID Status Reason Start Date Expiration Date V isits Requested Visits Authorized [id number] Order Cancelled 09/05/2019 1 1 Encounter Details Date Type Department Care Team (Latest Contact Info) Description 09/17/2019 9:09 EDT - 09/18/2019 23:59 EDT Hospital Encounter [facility] Obstetrics Services - [facility] [address] [place], [place] [phone] Less than 8 weeks gestation of Discharge [...] [facility] - [address] [address] Carrington Calderon MD [address] [phone] 02/27/2024 8:30 EDT Telemedicine [facility] Sleep Program - [address] 505311 Dwight Colbert [address] [place] [phone] 02/29/2024 10:30 EDT Appointment [facility] Radiology Nuclear Medicine and PET [address] [phone] 02/29/2024 14:30 EDT Appointment [facility] Radiology Nuclear Medicine and PET [address] [phone] 03/01/2024 8:00 EDT Appointment [facility] Radiology Nuclear Medicine and PET [address] 767111 03/01/2024 9:30 EDT Appointment [facility] Radiology Nuclear Medicine and PET [address] [address] documented as of this encounter Procedures Procedure [...] corpus luteum: ??collapsed Impression OB Transvaginal - 55723 [place] viable intrauterine with dating to be [...] corpus luteum: ??collapsed Impression OB Transvaginal - 71888 [place] viable intrauterine with dating to be [...] corpus luteum: collapsed Impression OB Transvaginal - 80296 [place] viable intrauterine with dating to be based onultrasound, as above for dating. Follow-up Establish OB care. Comment ========= Results discussed with patient. DATE OF SERVICE: 09/17/2019 Jonas Ojeda MD [facility] OB ORDERABLES documented in this encounter Visit Diagnoses Diagnosis Less than 8 weeks gestation of state, incidental documented in this encounter Care Teams Harness Cleaner Relationship Specialty Start Date End Date None, Provider PCP - General 06/18/19 11/25/19 documented as of this encounter
--- OUTSIDE RECORDS SUMMARY | 2024-02-10 01:27 | XMS_ITS | Encounter Summary ---
Author Organization [facility] Address [address] [place] [address] Care Team Providers Care Agricultural Adviser Name Role Phone None, Provider Primary Care Provider Unavailabl e Reason for Visit * Reason Onset Date Comments Follow-up 10/15/2019 Encounter Details Date Type Department Care Team (Late st Contact Info) Description 10/15/2019 Telephone [facility] OBGYN Services - [facility] [address] [place] [address] Susana Tomlinson, RN Follow-up Social History Tobacco [...] Encounter - Susana Tomlinson RN - 10/15/2019 0947 EDT Spoke with Cristy: her cramping is [...] thru this again. She will call the [facility] at [phone] to set up a Control talk to [...] [facility] - [address] [phone] Carrington Calderon MD [address] [facility] 1 [place] [address] 02/27/2024 8:30 EDT Telemedicine [facility] Sleep Program - [address] [address] Dwight Colbert [address] [place] [address] [phone] (Pgss) [phone] (Fax) 02/29/2024 10:30 EDT [facility]ment [facility] Nuclear Medicine and PET [address] 057181 02/29/2024 14:30 EDT Appointment [facility] Radiology Nuclear Medicine and PET [address] 096921 03/01/2024 8:00 EDT Appointment [facility] Radiology Nuclear Medicine and PET [address] 537141 03/01/2024 9:30 EDT Appointment [facility] Radiology Nuclear Medicine and PET [address] [phone] documented as of this encounter Visit Diagnoses Not on filedocumented in this encounter Care Teams Agricultural Adviser Relationship Specialty Start Date End Date None, Provider PCP - General 06/18/19 11/25/19 documented as of this encounter
--- OUTSIDE RECORDS SUMMARY | 2024-02-10 01:27 | XMS_ITS | Encounter Summary ---
Author Organization [facility] Address [address] [place] [address] Care Team Providers Care Gum Cook Name Role Phone None, Provider Primary Care Provider Unavailabl e Reason for Visit * Reason Comments Injections RhoGAM Encounter Details Date Type Department Care Team (Late st Contact Info) Description 10/03/2019 10:30 EDT Office Visit [facility] Obstetrics & Midwifery - [facility] [address] [place] [address] Nurse, Mfm First trimester bleeding (Primary Dx) [...] [facility] Adult Primary Care - [address] 011441 Carrington Calderon MD [address] [place] [address] 1 [place] [phone] 02/27/2024 8:30 EDT Telemedicine [facility] Sleep Program - [address] 716101 Dwight Colbert [address] [place], [place] 0[address]641 02/29/2024 10:30 EDT Appointment [facility] Radiology Nuclear Medicine and PET [address] [phone] 02/29/2024 14:30 EDT Appointment [facility] Radiology Nuclear Medicine and PET [address] [address] 03/01/2024 8:00 EDT Appointment [facility] Radiology Nuclear Medicine and PET [address] [phone] 03/01/2024 9:30 EDT Appointment [facility] Radiology Nuclear Medicine and PET [address] [phone] documented as of this encounter Visit Diagnoses Diagnosis First trimester bleeding- Primary Unspecified hemorrhage in early , antepartum documented in this encounter Administered Medications Administered Medications Medication Order MAR Action Action Date Dose Rate Site Rho(D) Immune Globulin IM Intramuscular Given 10/03/2019 10:56 EDT 300 mcg Right D eltoid documented in this encounter Care Teams Gum Cook Relationship Specialty Start Date End Date None, Provider PCP - General 06/18/19 11/25/19 documented as of this encounter
--- OUTSIDE RECORDS SUMMARY | 2024-02-10 01:28 | XMS_ITS | Encounter Summary ---
Author Organization [facility] Address [address] [place] [address] Care Team Providers Care Mangle Roller Name Role Phone Benita Shafer MERGERS AND ACQUISITIONS MANAGER Primary Care Provider [phone] Reason for Visit * Reason Onset Date Comments Labs Only 10/29/2018 Encounter Details Date Type Department Care Team (Late st Contact Info) Description 10/29/2018 Telephone [facility] OBGYN Services - [facility] [address] [place] [address] Deborah Saleh MD [address] [place] [address] Labs Only Social History [...] Encounter - Deborah Saleh MD - 10/29/2018 0723 EDT Left voicemail indicating we received Day 4 HCG s/p MTX. No changes to plan. Next lab draw on Day 7. Deborah Saleh MD 10/29/2018 17:50 Obstetrics & Gynecology, PGY-4 Pager [phone] documented in this encounter Plan of Treatment Upcoming Encounters Date Type Department Care Team (Late st Contact Info) Description 02/21/2024 9:45 EDT Office Visit [facility] Adult Primary Care - [address] [address] Carrington Calderon MD 1 [facility] 1 [place] [address] 02/27/2024 8:30 EDT Telemedicine [facility] Sleep Program - [address] [address] Dwight Colbert [address] [place] [address] [phone] 02/29/2024 10:[address] [facility] Radiology Nuclear Medicine and PET [address] [address] 02/29/2024 14:[address] [facility] Radiology Nuclear Medicine and PET [address] 744451 03/01/2024 8:[address] [facility] Radiology Nuclear Medicine and PET - [address] [phone] 03/01/2024 9:[address] [facility] Radiology Nuclear Medicine and PET [address] [phone] documented as of this encounter Visit Diagnoses Diagnosis Ectopic , unspecified location, unspecified whether intrauterine present- Primary documented in this encounter Care Teams Mangle Roller Relationship Specialty Start Date End Date Benita Shafer NP PCP - General 08/22/18 06/17/19 documented as of this encounter
--- OUTSIDE RECORDS SUMMARY | 2024-02-10 01:28 | XMS_ITS | Encounter Summary ---
Author Organization [facility] Address [address] [place] [address] Care Team Providers Care Answering Service Operator Name Role Phone Benita Shafer NURSE DISCHARGE Primary Care Provider [phone] Reason for Visit * Reason Onset Date Comments Results 12/25/2018 Encounter Details Date Type Department Care Team (Late st Contact Info) Description 12/25/2018 Telephone [facility] OBGYN Services - [address] [address] Susana Tomlinson, MARCELO Results Social History Tobacco [...] RN - 12/25/2018 0955 EDT Spoke with [facility] lab, Cristy has not has HCG blood draw sine 12/13/18. Letter sent, removed from Beta [employer]. documented in this encounter Plan of Treatment Upcoming Encounters Date Type Department Care Team (Late st Contact Info) Description 02/21/2024 9:45 EDT Office Visit [facility] Adult Primary Care - [address] [phone] Carrington Calderon MD [address] [phone] 02/27/2024 8:30 EDT Telemedicine [facility] Sleep Program - [address] [phone] Dwight Colbert [address] [place] [address] [phone] 02/29/2024 10:30 EDT Appointment [facility] Radiology Nuclear Medicine and PET [address] [phone] 02/29/2024 14:30 EDT Appointment [facility] Radiology Nuclear Medicine and PET [address] [phone] 03/01/2024 8:00 EDT Appointment [facility] Radiology Nuclear Medicine and PET [address] [phone] 03/01/2024 9:30 EDT Appointment [facility] Radiology Nuclear Medicine and PET [address] [phone] documented as of this encounter Visit Diagnoses Not on filedocumented in this encounter Care Teams Answering Service Operator Relationship Specialty Start Date End Date Benita Shafer NP PCP - General 08/22/18 06/17/19 documented as of this encounter
--- OUTSIDE RECORDS SUMMARY | 2024-02-10 01:28 | XMS_ITS | Encounter Summary ---
Author Organization [facility] Address [address] [place] [address] Care Team Providers Care Jewelry Consultant Name Role Phone Benita Shafer ADMINISTRATIVE MEDICAL DIRECTOR Primary Care Provider [phone] Encounter Details Date Type Department Care Team (Late st Contact Info) Description 12/11/2018 Orders Only [facility] OBGYN Services - [address] [phone] Charu Flynn MD 111 [facility], Level 4 [place] [address] Social History Tobacco Use Types [...] [facility] - [address] 068481 Carrington Calderon MD [address] [phone] 02/27/2024 8:30 EDT Telemedicine [facility] Sleep Program - [address] 793641 Dwight Colbert [address] [place] [address] [phone] 02/29/2024 10:30 EDT Appointment [facility] Radiology Nuclear Medicine and PET [address] [id number] 02/29/2024 14:30 EDT Appointment [facility] Radiology Nuclear Medicine and [address] [phone] 03/01/2024 8:00 EDT Appointment [facility] Radiology Nuclear Medicine and PET [address] [id number] 03/01/2024 9:30 EDT Appointment [facility] Radiology Nuclear Medicine and PET [address] [phone] documented as of this encounter Visit Diagnoses Not on filedocumented in this encounter Care Teams Jewelry Consultant Relationship Specialty Start Date End Date Benita Shafer NP PCP - General 08/22/18 06/17/19 documented as of this encounter
--- OUTSIDE RECORDS SUMMARY | 2024-02-10 01:28 | XMS_ITS | Encounter Summary ---
Author Organization [facility] Address [address] [place] [address] Care Team Providers Care Practical Nursing Instructor Name Role Phone Benita Shafer REGASIFICATION PLANT OPERATOR Primary Care Provider [phone] Reason for Visit * Reason Onset Date Comments Results 12/15/2018 Encounter Details Date Type Department Care Team (Late st Contact Info) Description 12/15/2018 Telephone [facility] OBGYN Services - [address] [address] Susana Tomlinson, MARCELO Results Social History Tobacco [...] Telephone Encounter - Susana Tomlinson, RN - 12/15/2018 0859 EDT Non-identified VM, left general message: nurse calling from [facility]???s clinic, re: blood work results, level has decreased, plan per MD team is to repeat blood work in one week from last (12/20). Also reminder that you have an appt scheduled for 02/24/19 @ 9am, also appt on 01/03 but will will check with provider to determine if appropriate. Please call the BREWING DIRECTOR nurses at [phone]. When Cristy calls will give details: HCG [...] [facility] - [address] 274251 Carrington Cadleron MD [address] [phone] 02/27/2024 8:30 EDT Telemedicine [facility] Sleep Program - [address] [phone] Dwight Colbert [address] [place] [address] [phone] 02/29/2024 10:30 EDT Appointment [facility] Radiology Nuclear Medicine and PET - [address] [phone] 02/29/2024 14:30 EDT Appointment [facility] Radiology Nuclear Medicine and PET [address] [address] 03/01/2024 8:00 EDT Appointment [facility] Radiology Nuclear Medicine and PET [address] [address] 03/01/2024 9:30 EDT Appointment [facility] Radiology Nuclear Medicine and PET [address] [address] documented as of this encounter Procedures Procedure Name Priority Date/Time Associated Diagnosis Comments QUANT BETA HCG, Routine 12/13/2018 6:27 EDT documented in this encounter Results * QUANT BETA HCG, (12/13/2018 6:27 EDT) HCG, External 13.63 2.39 - 15,000 mIU/mL [facility] Blood specimen (specimen) 12/13/2018 6:27 EDT Charu Flynn MD CHEMISTRY & BLOO D GAS ORDERABLES [facility] documented in this encounter Visit Diagnoses Not on filedocumented in this encounter Care Teams Practical Nursing Instructor Relationship Specialty Start Date End Date Benita Shafer NP PCP - General 08/22/18 06/17/19 documented as of this encounter
--- OUTSIDE RECORDS SUMMARY | 2024-02-10 01:28 | XMS_ITS | Encounter Summary ---
Author Organization [facility] Address [address] [place] [address] Care Team Providers Care Rn Urgent Care Name Role Phone Benita Shafer CONSTRUCTION TECHNOLOGY INSTRUCTOR Primary Care Provider [phone] Reason for Visit * Reason Comments Social Work Encounter Details Date Type Department Care Team (Late st Contact Info) Description 12/15/2018 Community Health Team [facility] OBGYN Services - [address] [address] Kylah Bose Social History Tobacco Use Types [...] check in with patient during her next Latex Spooler appointment with Dr. Ojeda on 01/03. [facility] Total Time: 5 minutes phone, 5 minutes charting Referral: n/a Follow up: n/a Status: pending documented in this encounter Plan of Treatment Upcoming Encounters Date Type Department Care Team (Steph st Contact Info) Description 02/21/2024 9:45 EDT Office Visit [facility] Adult Primary Care - [address] 099771 Carrington Calderon MD [address] [phone] 02/27/2024 8:30 EDT Telemedicine [facility] Sleep Program - [address] 917281 Dwight Colbert [address] [place] [address] [phone] 02/29/2024 10:30 EDT Appointment [facility] Radiology Nuclear Medicine and PET - [address] [id number] 02/29/2024 14:30 EDT Appointment [facility] Radiology Nuclear Medicine and PET - [address] [id number] 03/01/2024 8:00 EDT Appointment [facility] Radiology Nuclear Medicine and PET - [address] [phone] 03/01/2024 9:30 EDT Appointment [facility] Radiology Nuclear Medicine and PET - [address] [address] documented as of this encounter Visit Diagnoses Not on filedocumented in this encounter Care Teams Rn Urgent Care Relationship Specialty Start Date End Date Bneita Shafer NP PCP - General 08/22/18 06/17/19 documented as of this encounter
--- OUTSIDE RECORDS SUMMARY | 2024-02-10 01:28 | XMS_ITS | Encounter Summary ---
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 [...] [facility] - [address] 307051 Carrington Calderon MD 1 [facility] Level 1 [place] [phone] 02/27/2024 8:30 EDT Telemedicine [facility] Sleep Program - [address] [place] [address] [place] [address] Dwight Colbert [address] [place], [place] 450771 02/29/2024 10:30 EDT Appointment [facility] Radiology Nuclear Medicine and PET - [address] [phone] 02/29/2024 14:30 EDT Appointment [facility] Radiology Nuclear Medicine and PET - [address] [phone] 03/01/2024 8:00 EDT Appointment [facility] Radiology Nuclear Medicine and PET - [address] [phone] 03/01/2024 9:30 EDT Appointment [facility] Radiology Nuclear Medicine and PET [address] [id number] documented as of this encounter Procedures Procedure Name Priority Date/Time Associated Diagnosis Comments THYROID CASCADE Routine 11/03/2018 10:47 EDT Recurrent loss PROLACTIN Routine 11/03/2018 10:47 EDT Recurrent loss HEMOGLOBIN A1C Routine 11/03/2018 10:47 EDT Recurrent loss documented in this encounter Results * HEMOGLOBIN A1C (11/03/2018 10:47 EDT) Hemoglobin A1C 10.9 % 11/03/2018 15:29 EDT [facility] Comment: Reference Range: <5.7% Normal 5.7-6.4% Prediabetes =>6.5% Diagnostic for diabetes (if confirmed) Goals for glycemic control in diabetes ADA 2017 For non adults with diabetes: ?? Target <7.0% For children and adolescents with type 1 diabetes: ?? Target <7.5% More or less stringent targets may be appropriate for individual patients. Est Avg Glucose 266 mg/dl 9 15:29 EDT [facility] Comment: eAG represents the A1c result expressed as average glucose in mg/dl. Blood specimen (specimen) BLOOD SPECIMEN / Unknown 11/03/2018 10:47 EDT 11/03/2018 11:17 EDT Jonas Ojeda MD CHEMISTRY & BLOOD GA S ORDERABLES Performing Organization Address [facility] de Phone Number [facility] [address] [place] [address] * PROLACTIN (11/03/2018 10:47 EDT) Prolactin 5.4 ng/ml 11/03/2018 13:09 EDT [facility] Comment: Non-: 2.8-29.2 : 9.7-208.5 Post Menopausal: 1.8-20.3 Blood specimen (specimen) BLOOD SPECIMEN / Unknown 11/03/2018 10:47 EDT 11/03/2018 11:17 EDT Jonas Ojeda MD CHEMISTRY & BLOOD GA S ORDERABLES Performing Organization Address [facility] de Phone Number [facility] [address] [place] [address] * (ABNORMAL) THYROID CASCADE (11/03/2018 10:47 EDT) TSH 0.40(L) 0.47 - 4.68 uIU/ml 11/03/2018 12:19 EDT [facility] Comment: TSH cascade is not recommended for patients in which pituitary or hypothalamic disorders are suspected. The results of this assay can be falsely lowered due to the consumption of Biotin. 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
--- OUTSIDE RECORDS SUMMARY | 2024-02-10 01:28 | XMS_ITS | Encounter Summary ---
Author Organization [facility] Address [address] [place] [address] Care Team Providers Care Small Wind Energy Installer Name Role Phone Benita Shafer ENVIRONMENTAL STUDIES PROGRAM DIRECTOR Primary Care Provider [phone] Reason for Visit * Reason Onset Date Comments Labs Only 12/20/2018 Encounter Details Date Type Department Care Team (Late st Contact Info) Description 12/20/2018 Telephone [facility] OBGYN Services - [address] [address] Susana Tomlinson, RN Labs Only Social History [...] VM, left general message: nurse calling from [facility] Women???s clinic, re: bloodwork that was due Wednesday 12/20, spoke with lab last bloodwork was done 12/13, very important to get the blood work done, can change day of blood draw if would be better to get this done on . Please call the CRIMINAL RESEARCH SPECIALIST nurses at [phone]. This is the 3rd call to her. * Telephone Encounter - Michelle Sanchez RN - 12/21/2018 0904 EDT LM asking pt to call CRIMINAL RESEARCH SPECIALIST triage to f/u. If calls back, will discuss moving blood draw for HCG to Tuesday, as pt is off work on that day. TC to [facility]; confirmed that pt has not come to lab as of 1. * Telephone Encounter - Jordyn Wolfe RN - 12/20/2018 1653 EDT Call to [facility] lab. Patient has not gone in for blood work as of yet. Will have nurse call her tomorrow to follow-up if she has not gone in today. * Telephone Encounter - Susana Tomlinson RN - 12/20/2018 1326 EDT Spoke with lab @ [facility]: Cristy has not yet come in today for CG lab draw. documented in this encounter Plan of Treatment Upcoming Encounters Date Type Department Care Team (Late st Contact Info) Description 02/21/2024 9:45 EDT Office Visit [facility] Adult Primary Care - [address] [address] Carrington Calderon MD [address] [phone] 02/27/2024 8:30 EDT Telemedicine [facility] Sleep Program - [address] 459451 Dwight Colbert [address] [place] [address] [phone] 02/29/2024 10:30 EDT Appointment [facility] Radiology Nuclear Medicine and PET [address] [phone] 02/29/2024 14:30 EDT Appointment [facility] Radiology Nuclear Medicine and [address] [phone] 03/01/2024 8:00 EDT Appointment [facility] Radiology Nuclear Medicine and PET [address] [id number] 03/01/2024 9:30 EDT Appointment [facility] Radiology Nuclear Medicine and [address] [phone] documented as of this encounter Visit Diagnoses Not on filedocumented in this encounter Care Teams Small Wind Energy Installer Relationship Specialty Start Date End Date Benita Shafer NP PCP - General 08/22/18 06/17/19 documented as of this encounter
--- OUTSIDE RECORDS SUMMARY | 2024-02-10 01:28 | XMS_ITS | Encounter Summary ---
Author Organization [facility] Address [address] [place] [address] Care Team Providers Care Staff Certified Nurse Midwife Name Role Phone Benita Shafer BUTCHER ASSISTANT Primary Care Provider [phone] Reason for Visit * Reason Onset Date Comments Results 12/04/2018 Encounter Details Date Type Department Care Team (Late st Contact Info) Description 12/04/2018 Telephone [facility] OBGYN Services - [address] [address] Lisseth Valdez, MARCELO Results Social History Tobacco [...] w/ dr beckwith. Please call us at [phone]. LVM jamaal Muniz stating this is the nurse again, I forgot to tell you that based on your new result we would like for you to repeat your blood work on 12/10. documented in this encounter Plan of Treatment Upcoming Encounters Date Type Department Care Team (Late st Contact Info) Description 02/21/2024 9:45 EDT Office Visit [facility] Adult Primary Care - [address] [phone] Carrington Calderon MD [address] [phone] 02/27/2024 8:30 EDT Telemedicine [facility] Sleep Program - [address] 759141 Dwight Colbert [address] [place] [address] [phone] 02/29/2024 10:30 EDT Appointment [facility] Radiology Nuclear Medicine and PET - [address] [phone] 02/29/2024 14:30 EDT Appointment [facility] Radiology Nuclear Medicine and PET - [address] [phone] 03/01/2024 8:00 EDT Appointment [facility] Radiology Nuclear Medicine and PET [address] [phone] 03/01/2024 9:30 EDT Appointment [facility] Radiology Nuclear Medicine and PET [address] 703001 documented as of this encounter Visit Diagnoses Not on filedocumented in this encounter Care Teams Staff Certified Nurse Midwife Relationship Specialty Start Date End Date Benita Shafer NP PCP - General 08/22/18 06/17/19 documented as of this encounter
--- OUTSIDE RECORDS SUMMARY | 2024-02-10 01:28 | XMS_ITS | Encounter Summary ---
Author Organization [facility] Address [address] [place] [address] Care Team Providers Care Investment Strategist Name Role Phone Benita Shafer BALANCE WHEEL MOTION INSPECTOR Primary Care Provider [phone] Encounter Details Date Type Department Care Team (Late Contact Info) Description 11/01/2018 Orders Only [facility] OBGYN Services - [facility] [address] [place] [address] Lara Serrano, MARCELO [address] [place] [address] Right tubal without intrauterine (Primary Dx) Social [facility] - [address] [address] Carrington Calderon MD [address] [phone] 02/27/2024 8:30 EDT Telemedicine [facility] Sleep Program - [address] [address] Dwight Colbert [address] [place] [address] [phone] 02/29/2024 10:30 EDT Appointment [facility] Radiology Nuclear Medicine and PET [address] 109551 02/29/2024 14:30 EDT Appointment [facility] Radiology Nuclear Medicine and PET [address] [address] 03/01/2024 8:00 EDT Appointment [facility] Radiology Nuclear Medicine and PET [address] [id number] 03/01/2024 9:30 EDT Appointment [facility] Radiology Nuclear Medicine and PET [address] [phone] documented as of this encounter Visit Diagnoses Diagnosis Right tubal without intrauterine - Primary documented in this encounter Care Teams Investment Strategist Relationship Specialty Start Date End Date Benita Shafer NP PCP - General 08/22/18 06/17/19 documented as of this encounter
--- OUTSIDE RECORDS SUMMARY | 2024-02-10 01:28 | XMS_ITS | Encounter Summary ---
Author Organization [facility] Address [address] [place] [address] Care Team Providers Care Mechanical Press Operator Name Role Phone Benita Shafer STEM ASSEMBLER Primary Care Provider [phone] Encounter Details Date Type Department Care Team (Late st Contact Info) Description 11/21/2018 Orders Only [facility] OBGYN Services - [address] [phone] Charu Flynn MD 111 [facility], Level [address] [place] [address] Social History Tobacco Use Types [facility] - [address] 279261 Carrington Calderon MD [address] [phone] 02/27/2024 8:30 EDT Telemedicine [facility] Sleep Program - [address] [phone] Dwight Colbert [address] [place] [address] [phone] 02/29/2024 10:30 EDT Appointment [facility] Radiology Nuclear Medicine and PET [address] [phone] 02/29/2024 14:30 EDT Appointment [facility] Radiology Nuclear Medicine and PET [address] [phone] 03/01/2024 8:00 EDT Appointment [facility] Radiology Nuclear Medicine and PET [address] [phone] 03/01/2024 9:30 EDT Appointment [facility] Radiology Nuclear Medicine and PET [address] [phone] documented as of this encounter Procedures Procedure Name Priority Date/Time Associated Diagnosis Comments QUANT BETA HCG, Routine 11/21/2018 11:23 EDT documented in this encounter Results * QUANT BETA HCG, (11/21/2018 11:23 EDT) HCG, External 299.98 2.39 - 15,000 mIU/mL [facility] Comment:Please see the scann ed report in EPIC for further interpretation. Blood specimen (specimen) 11/21/2018 11:23 EDT Charu Flynn MD CHEMISTRY & BLOO D GAS ORDERABLES [facility] documented in this encounter Visit Diagnoses Not on filedocumented in this encounter Care Teams Mechanical Press Operator Relationship Specialty Start Date End Date Benita Shafer NP PCP - General 08/22/18 06/17/19 documented as of this encounter
--- OUTSIDE RECORDS SUMMARY | 2024-02-10 01:28 | XMS_ITS | Encounter Summary ---
Author Organization [facility] Address [address] [place] [address] Care Team Providers Care Certified Master Locksmith Name Role Phone Benita Shafer LITHOGRAPH PRINTER Primary Care Provider [phone] Encounter Details Date Type Department Care Team (Late st Contact Info) Description 10/29/2018 Phlebotomy Only [facility] - [address] [address] Health Safety And Environment Manager, Outpatient 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 (Primary [...] [facility] Adult Primary Care - [address] 439331 Carrington Calderon MD 1 [facility] Level 1 [place] [address] 02/27/2024 8:30 EDT Telemedicine [facility] Sleep Program - [address] [place] [address] [place] [address] Dwight Colbert [address] [place], [place] [address] 02/29/2024 10:30 EDT Appointment [facility] Radiology Nuclear Medicine and PET - [address] [address] 02/29/2024 14:30 EDT Appointment [facility] Radiology Nuclear Medicine and PET [address] [phone] 03/01/2024 8:00 EDT Appointment [facility] Radiology Nuclear Medicine and PET [address] [phone] 03/01/2024 9:30 EDT Appointment [facility] Radiology Nuclear Medicine and PET [address] [address] documented as of this encounter Procedures Procedure Name Priority Date/Time Associated Diagnosis Comments QUANT BETA HCG, Routine 10/29/2018 9:20 EDT 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 documented in this encounter Results * (ABNORMAL) QUANT BETA HCG, (10/29/2018 9:20 EDT) Quant Beta HCG, Preg 2,338(H) <5 mIU/ml 10/29/2018 10:12 EDT [facility] Comment: Reference Range: Negative = <5 Indeterminate = 5-25 recommend repeat in 48 hours. Positive = >25 The results of this assay can be falsely lowered due to the consumption of Biotin. Blood specimen (specimen) BLOOD SPECIMEN / Unknown 10/29/2018 9:20 EDT 10/29/2018 9:38 EDT Charu Flynn MD CHEMISTRY & BLOO D GAS ORDERABLES [facility] [address] [place] [address] documented in this encounter Visit Diagnoses Diagnosis 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 - Primary documented in this encounter Care Teams Certified Master Locksmith Relationship Specialty Start Date End Date Benita Shafer NP PCP - General 08/22/18 06/17/19 documented as of this encounter
--- OUTSIDE RECORDS SUMMARY | 2024-02-10 01:28 | XMS_ITS | Encounter Summary ---
Author Organization [facility] Address [address] [place] [address] Care Team Providers Care Senior Visual Designer Name Role Phone Benita Shafer CLAM PICKER Primary Care Provider [phone] Encounter Details Date Type Department Care Team [...] [facility] 1 [place] [address] Carrington Calderon MD [address] [place] [phone] 02/27/2024 8:30 EDT Telemedicine [facility] Sleep Program [address] [address] Dwight Colbert [address] [place] [address] [phone] 02/29/2024 10:30 EDT Appointment [facility] Radiology Nuclear Medicine and PET [address] [phone] 02/29/2024 14:30 EDT Appointment [facility] Radiology Nuclear Medicine and PET [address] [phone] 03/01/2024 8:00 EDT Appointment [facility] Radiology Nuclear Medicine and PET [address] 835551 03/01/2024 9:30 EDT Appointment [facility] Radiology Nuclear Medicine and [address] 195941 documented as of this encounter Visit Diagnoses Not on filedocumented in this encounter Care Teams Senior Visual Designer Relationship Specialty Start Date End Date Benita Shafer NP PCP - General 08/22/18 06/17/19 documented as of this encounter
--- OUTSIDE RECORDS SUMMARY | 2024-02-10 01:28 | XMS_ITS | Encounter Summary ---
Author Organization [facility] Address [address] [place] [address] Care Team Providers Care Business Intelligence Director Name Role Phone Benita Shafer GUSTAVO Primary Care Provider [phone] Encounter Details Date Type Department Care Team (Latest Contact Info) Description 11/03/2018 10:39 EDT - 11/03/2018 23:59 EDT Hospital Encounter [facility] [address] [place] [address] Jonas Ojeda MD [address] [place] [address] [phone] Discharge Disposition: Auto Discharge Social [...] skin at bedtime. 11/26/2019 lancets One Touch DelBoxer or other brand compatible with lancing device and covered by patient's insurance. 100 Each 2 10/19/2018 10/01/2019 lidocaine 5 % (LIDODERM) 5 % patch To area of pain, apply for 12 hours on, then 12 hours off. Some insurance companies do not cover this medication. There is an zywd-ecu-ktxymfe cream or an lwhi-gob-gveqsfg patch with a lower concentration that is [...] [facility] Adult Primary Care - [address] [phone] Carrington Calderon MD 1 [facility] 1 [place] [phone] 02/27/2024 8:30 EDT Telemedicine [facility] Sleep Program - [address] [phone] Dwight Colbert [address] [place] [address] 02/29/2024 10:30 EDT Appointment [facility] Radiology Nuclear Medicine and PET - [address] 798281 02/29/2024 14:30 EDT Appointment [facility] Radiology Nuclear Medicine and PET [address] [phone] 03/01/2024 8:00 EDT Appointment [facility] Radiology Nuclear Medicine and PET [address] [phone] 03/01/2024 9:30 EDT Appointment [facility] Radiology Nuclear Medicine and PET [address] [address] documented as of this encounter Procedures Procedure Name Priority Date/Time Associated Diagnosis Comments T4, FREE REFLEX Routine 11/03/2018 10:47 EDT T3, TOTAL Routine 11/03/2018 10:47 EDT documented in this encounter Results * T3, TOTAL (11/03/2018 10:47 EDT) T3, Total 111 97 - 169 ng/dl 11/03/2018 14:02 EDT [facility] BLOOD SPECIMEN / Unknown 11/03/2018 10:47 EDT 11/03/2018 11:17 EDT Jonas Ojeda MD CHEMISTRY & BLOOD GA S ORDERABLES [facility] [address] [place] [address] * T4, FREE REFLEX (11/03/2018 10:47 EDT) T4, Free Reflex 1.2 0.8 - 2.2 ng/dl 11/03/2018 13:02 EDT [facility] BLOOD SPECIMEN / Unknown 11/03/2018 10:47 EDT 11/03/2018 11:17 EDT Jonas Ojeda MD CHEMISTRY & BLOOD GA S ORDERABLES [facility] [address] [place] [address] documented in this encounter Visit Diagnoses Not on filedocumented in this encounter Care Teams Business Intelligence Director Relationship Specialty Start Date End Date Benita Shafer NP PCP - General 08/22/18 06/17/19 documented as of this encounter
--- OUTSIDE RECORDS SUMMARY | 2024-02-10 01:28 | XMS_ITS | Encounter Summary ---
Author Organization [facility] Address [address] [place] [address] Care Team Providers Care Skin Fitter Name Role Phone Benita Shafer DRILLING MACHINE RUNNER Primary Care Provider [phone] Reason for Visit * Reason Onset Date Comments Problem 10/31/2018 Encounter Details Date Type Department Care Team (Late st Contact Info) Description 10/31/2018 Orders Only [facility] OBGYN Services - [facility] [address] [place], [place] [address]85[address] Susana Tomlinson RN 10 weeks gestation of [...] Visit [facility] Adult Primary Care - [address] 744431 Carrington Calderon MD [address] [phone] 02/27/2024 8:30 EDT Telemedicine [facility] Sleep Program - [address] [address] Dwight Colbert [address] [place] [address] 02/29/2024 10:30 EDT [facility] Radiology Nuclear Medicine and PET - [address] [address] 02/29/2024 14:[address] [facility] Radiology Nuclear Medicine and PET [address] 010021 03/01/2024 8:[address] [facility] Radiology Nuclear Medicine and PET [address] 278601 03/01/2024 9:[address] [facility] Radiology Nuclear Medicine and PET [address] [address] documented as of this encounter Visit Diagnoses Diagnosis 10 weeks gestation of - Primary state, incidental documented in this encounter Care Teams Skin Fitter Relationship Specialty Start Date End Date Benita Shafer NP PCP - General 08/22/18 06/17/19 documented as of this encounter
--- OUTSIDE RECORDS SUMMARY | 2024-02-10 01:28 | XMS_ITS | Encounter Summary ---
Author Organization [facility] Address [address] [place] [address] Care Team Providers Care Ladle Puller Name Role Phone Benita Shafer GUSTAVO Primary Care Provider [phone] Encounter Details Date Type Department Care Team (Late st Contact Info) Description 11/10/2018 Phlebotomy Only [address] [address] [facility], Outpatient Ectopic without intrauterine , unspecified location [...] Visit [facility] Adult Primary Care - [address] 225561 Carrington Calderon MD 1 [facility] 1 [place] [address] 02/27/2024 8:30 EDT Telemedicine [facility] Sleep Program - [address] [phone] Dwight Colbert [address] [place] [address] [phone] 02/29/2024 10:30 EDT Appointment [facility] Radiology Nuclear Medicine and [address] [phone] 02/29/2024 14:30 EDT Appointment [facility] Radiology Nuclear Medicine and PET [address] [phone] 03/01/2024 8:00 EDT Appointment [facility] Radiology Nuclear Medicine and [address] [phone] 03/01/2024 9:30 EDT Appointment [facility] Radiology Nuclear [facility] and [address] [phone] documented as of this encounter Procedures Procedure Name Priority Date/Time Associated Diagnosis Comments QUANT BETA HCG, Routine 11/10/2018 8:52 EDT Ectopic without intrauterine , unspecified location documented in this encounter Results * (ABNORMAL) QUANT BETA HCG, (11/10/2018 8:52 EDT) Quant Beta HCG, Preg 1,117(H) <5 mIU/ml 11/10/2018 9:47 EDT [facility] Comment: Reference Range: Negative = <5 Indeterminate = 5-25 recommend repeat in 48 hours. Positive = >25 The results of this assay can be falsely lowered due to the consumption of Biotin. Blood specimen (specimen) BLOOD SPECIMEN / Unknown 11/10/2018 8:52 EDT 11/10/2018 9:00 EDT Charu Flynn MD CHEMISTRY & BLOO D GAS ORDERABLES [facility] [address] [place] [address] documented in this encounter Visit Diagnoses Diagnosis Ectopic without intrauterine , unspecified location- Primary documented in this encounter Care Teams Ladle Puller Relationship Specialty Start Date End Date Benita Shafer NP PCP - General 08/22/18 06/17/19 documented as of this encounter
--- OUTSIDE RECORDS SUMMARY | 2024-02-10 01:28 | XMS_ITS | Encounter Summary ---
Author Organization [facility] Address [address] [place] [address] Care Team Providers Care Liner Inserter Name Role Phone Benita Shafer CLOTH PRINTER Primary Care Provider [phone] Reason for Visit * Reason Onset Date Comments Labs Only 11/07/2018 Encounter Details Date Type Department Care Team (Late st Contact Info) Description 11/07/2018 Telephone [facility] OBGYN Services - [address] [address] Michelle Sanchez, MARCEOL Labs Only Social History Tobacco Use Types [...] in tomorrow. Patient given lab hours at [facility]. Lab opens up at 6. Patient [...] Wolfe RN - 11/08/2018 1901 EDT Call [facility] lab. Patient had not gone into the lab as of now which is 1900. * Telephone Encounter - Michelle Sanchez RN - 11/07/2018 0945 EDT TC to Cristy to remind to go to lab for HCG tomorrow (11/08). Pt states she will go to [facility] lab in evening; advised we will be [...] following MTX administration. Reiterated bleeding precautions and POST SPLITTER triage number if pt has questions/concerns. documented in this encounter Plan of Treatment Upcoming Encounters Date Type Department Care Team (Late st Contact Info) Description 02/21/2024 9:45 EDT Office Visit [facility] Adult Primary Care - [address] [phone] Carrington Calderon MD 1 [facility] 1 [place] [phone] 02/27/2024 8:30 EDT Telemedicine [facility] Sleep Program - [address] [phone] Dwight Colbert [address] [place] [address] 02/29/2024 10:30 EDT Appointment [facility] Radiology Nuclear Medicine and PET [address] [address] 02/29/2024 14:30 EDT Appointment [facility] Radiology Nuclear Medicine and PET [address] 942511 03/01/2024 8:00 EDT Appointment [facility] Radiology Nuclear Medicine and PET [address] 410241 03/01/2024 9:30 EDT Appointment [facility] Radiology Nuclear Medicine and PET [address] [address] documented as of this encounter Results * (ABNORMAL) QUANT BETA HCG, (11/10/2018 8:52 EDT) [facility] Quant Beta HCG, Preg 1,117(H) <5 mIU/ml 11/10/2018 9:47 EDT [facility] Comment: Reference Range: Negative = <5 Indeterminate = 5-25 recommend repeat in 48 hours. Positive = >25 The results of this assay can be falsely lowered due to the consumption of Biotin. Blood specimen (specimen) BLOOD SPECIMEN / Unknown 11/10/2018 8:52 EDT 11/10/2018 9:00 EDT Charu Flynn MD CHEMISTRY & BLOO D GAS ORDERABLES [facility] [address] [place] [address] documented in this encounter Visit Diagnoses Diagnosis Ectopic without intrauterine , unspecified location- Primary documented in this encounter Care Teams Liner Inserter Relationship Specialty Start Date End Date Benita Shafer NP PCP - General 08/22/18 06/17/19 documented as of this encounter
--- OUTSIDE RECORDS SUMMARY | 2024-02-10 01:28 | XMS_ITS | Encounter Summary ---
Author Organization [facility] Address [address] [place] [address] Care Team Providers Care Scalehouse Attendant Name Role Phone Benita Shafer PAN SHAKER Primary Care Provider [phone] Reason for Visit * Reason Onset Date Comments Labs Only 12/11/2018 Encounter Details Date Type Department Care Team (Late st Contact Info) Description 12/11/[address] [facility] OBGYN Services - [address] [address] Susana Tomlinson, RN Labs Only Social History [...] Telephone Encounter - Susana Tomlinson RN - 12/11/2018 1108 EDT Non-identified VM, left general message: nurse calling from [facility], re: blood work, were able to have blood work done last week from labs drawn at [facility], plan was repeat blood work yesterday 12/10, need to follow this to zero, very important to have this follow-up. Please call the BI DATA ARCHITECT nurses at [phone]. documented in this encounter Plan of Treatment Upcoming Encounters Date Type Department Care Team (Late st Contact Info) Description 02/21/2024 9:45 EDT Office Visit [facility] Adult Primary Care - [address] [phone] Carrington Calderon MD [address] [phone] 02/27/2024 8:[address] [facility] Sleep Program - [address] [phone] Dwight Colbert [address] [place] [address] [phone] 02/29/2024 10:30 EDT Appointment [facility] Radiology Nuclear Medicine and PET - [address] 348801 02/29/2024 14:30 EDT Appointment [facility] Radiology Nuclear Medicine and PET - [address] [phone] 03/01/2024 8:00 EDT Appointment [facility] Radiology Nuclear Medicine and PET - [address] [id number] 03/01/2024 9:30 EDT Appointment [facility] Radiology Nuclear Medicine and PET - [address] [address] documented as of this encounter Visit Diagnoses Not on filedocumented in this encounter Care Teams Scalehouse Attendant Relationship Specialty Start Date End Date Benita Shafer NP PCP - General 08/22/18 06/17/19 documented as of this encounter
--- OUTSIDE RECORDS SUMMARY | 2024-02-10 01:28 | XMS_ITS | Encounter Summary ---
Author Organization [facility] Address [address] [place] [address] Care Team Providers Care Project Engineering Director Name Role Phone Benita Shafer GUSTAVO Primary Care Provider [phone] Reason for Visit * Reason Onset Date Comments Appointment Related 12/11/2018 Encounter Details Date Type Department Care Team (Late st Contact Info) Description 12/11/2018 Telephone [facility] Obstetrics & Midwifery - [place] [address] [place], [place] [phone] Nohemy Sales MD [address] [facility], Level [address] [place] [address] Appointment Related Social History Tobacco [...] [facility] Adult Primary Care - [address] 223551 Carrington Calderon MD [address] [phone] 02/27/2024 8:30 EDT Telemedicine [facility] Sleep Program - [address] 148511 Dwight Colbert [address] [place] [phone] 02/29/2024 10:30 EDT Appointment [facility] Radiology Nuclear Medicine and PET [address] [id number] 02/29/2024 14:30 EDT Appointment [facility] Radiology Nuclear Medicine and PET - [address] 095291 03/01/2024 8:00 EDT Appointment [facility] Radiology Nuclear Medicine and PET [address] [phone] 03/01/2024 9:30 EDT Appointment [facility] Radiology Nuclear Medicine and PET [address] [phone] documented as of this encounter Visit Diagnoses Not on filedocumented in this encounter Care Teams Project Engineering Director Relationship Specialty Start Date End Date Benita Shafer NP PCP - General 08/22/18 06/17/19 documented as of this encounter
--- OUTSIDE RECORDS SUMMARY | 2024-02-10 01:28 | XMS_ITS | Encounter Summary ---
Author Organization [facility] Address [address] [place] [address] Care Team Providers Care Truck Body Builder Name Role Phone Benita Shafer GUSTAVO Primary Care Provider Reason for Referral * Consult (3 - 10 Business Days) - Closed Specialty Diagnoses / Procedures Referred By [facility] t Referred To Contact [facility] Team / Obstetrics & Gynecology Diagnoses Ectopic , unspecified location, unspecified whether intrauterine present History of recurrent miscarriages Charu Flynn MD 111 [facility], [facility] 4 [place] [address] [facility] Obgyn [address] [place] [address] Referral ID Status Reason Start Date Expiration Date V isits Requested Visits Authorized [id number] Closed Specialty Services Required 11/10/2018 1 1 [...] please call the Community Health Team at [phone]. Reason for Visit * Reason Onset Date Comments Labs Only 11/10/2018 Encounter Details Date Type Department Care Team (Late st Contact Info) Description 11/10/2018 Telephone [facility] OBGYN Services - [address] [address] Susana Busby, RN Labs Only Social History [...] Spoke with Cristy, she went to [facility] lab last night but it was too late to get blood drawn, currently at [facility] lab. When asked how she is doing [...] are available. She prefers to go to [facility] for blood work, but may go to [facility] as is closer. I told her if [facility] registration says they do not have an order tell them to call the lab, as they can see [facility] Prism order. When asked if she has [...] [facility] Adult Primary Care - [address] 837061 Carrington Calderon MD [address] [phone] 02/27/2024 8:30 EDT Telemedicine [facility] Sleep Program - [address] 895641 Dwight Colbert [address] [place] [address] [phone] 02/29/2024 10:30 EDT Appointment [facility] Radiology Nuclear Medicine and PET - [address] 917081 02/29/2024 14:30 EDT Appointment [facility] Radiology Nuclear Medicine and PET - [address] [phone] 03/01/2024 8:00 EDT Appointment [facility] Radiology Nuclear Medicine and PET - [address] [address] 03/01/2024 9:30 EDT Appointment [facility] Radiology Nuclear Medicine and PET - [address] [address] Scheduled Referrals Name Type Priority Associated Diagnoses Orde r Schedule AMB CONS/FOLLOW UP [facility] TEAM Outpatient Referral Routine Ectopic , unspecified location, unspecified whether intrauterine present History of recurrent miscarriages Ordered: 11/10/2018 documented as of this encounter Visit Diagnoses Diagnosis Ectopic , unspecified location, unspecified whether intrauterine present- Primary History of recurrent miscarriages documented in this encounter Care Teams Truck Body Builder Relationship Specialty Start Date End Date Benita Shafer NP PCP - General 08/22/18 06/17/19 documented as of this encounter
--- OUTSIDE RECORDS SUMMARY | 2024-02-10 01:28 | XMS_ITS | Encounter Summary ---
Author Organization [facility] Address [address] [place] [address] Care Team Providers Care Curb Builder Name Role Phone Benita Shafer DEPUTY JUVENILE OFFICER Primary Care Provider [phone] Reason for Visit * Reason Onset Date Comments Results 11/19/2018 Encounter Details Date Type Department Care Team (Late st Contact Info) Description 11/19/2018 Telephone [facility] [place] [address] [place] [address] Jackie Almeida MD Results Social History Tobacco [...] 11/19/2018 9:33 PGY-1 Obstetrics and Gynecology Pager #[phone] documented in this encounter Plan of Treatment Upcoming Encounters Date Type Department Care Team (Late st Contact Info) Description 02/21/2024 9:45 EDT Office Visit [facility] Adult Primary Care - [address] [phone] Carrington Calderon MD [address] [phone] 02/27/2024 8:30 EDT Telemedicine [facility] Sleep Program - [address] [phone] Dwight Colbert [address] [place] [address] [phone] 02/29/2024 10:30 EDT Appointment [facility] Radiology Nuclear Medicine and PET - [address] [phone] 02/29/2024 14:30 EDT Appointment [facility] Radiology Nuclear Medicine and PET - [address] [id number] 03/01/2024 8:00 EDT Appointment [facility] Radiology Nuclear Medicine and PET - [address] [phone] 03/01/2024 9:30 EDT [facility] Nuclear Medicine and PET - [facility] [address] [place], [place] [phone] documented as of this encounter Visit Diagnoses Not on filedocumented in this encounter Care Teams Curb Builder Relationship Specialty Start Date End Date Benita Shafer NP PCP - General 08/22/18 06/17/19 documented as of this encounter
--- OUTSIDE RECORDS SUMMARY | 2024-02-10 01:28 | XMS_ITS | Encounter Summary ---
Author Organization [facility] Address [address] [place] [address] Care Team Providers Care Orthotics Prosthetics Assistant Name Role Phone Benita Shafer NON DESTRUCTIVE TESTING INSPECTOR Primary Care Provider [phone] Reason for Visit * Reason Onset Date Comments Other 11/21/2018 Encounter Details Date Type Department Care Team (Late st Contact Info) Description 11/21/2018 Telephone [facility] OBGYN Services - [address] [address] Jordyn Wolfe, MARCELO Other Social History Tobacco [...] to have her beta-hCG checked today at [facility]. I will ensure that the order is in place. documented in this encounter Plan of Treatment Upcoming Encounters Date Type Department Care Team (Late st Contact Info) Description 02/21/2024 9:45 EDT Office Visit [facility] Adult Primary Care - [address] 635161 Carrington Calderon MD [address] [phone] 02/27/2024 8:30 EDT Telemedicine [facility] Sleep Program - [address] 203231 Dwight Colbert [address] [place] [address] [phone] 02/29/2024 10:30 EDT Appointment [facility] Radiology Nuclear Medicine and PET - [address] [phone] 02/29/2024 14:30 EDT Appointment [facility] Radiology Nuclear Medicine and PET - [address] 288231 03/01/2024 8:00 EDT Appointment [facility] Radiology Nuclear Medicine and PET - [address] 978321 03/01/2024 9:30 EDT Appointment [facility] Radiology Nuclear Medicine and PET - [address] [phone] documented as of this encounter Visit Diagnoses Not on filedocumented in this encounter Care Teams Orthotics Prosthetics Assistant Relationship Specialty Start Date End Date Benita Shafer NP PCP - General 08/22/18 06/17/19 documented as of this encounter
--- OUTSIDE RECORDS SUMMARY | 2024-02-10 01:28 | XMS_ITS | Encounter Summary ---
Author Organization [facility] Address [address] [place] [address] Care Team Providers Care Commercial Reporter Name Role Phone Benita Shafer NEEDLE LOOM SETTER Primary Care Provider [phone] Reason for Visit * Reason Onset Date Comments Results 11/21/2018 Encounter Details Date Type Department Care Team (Late st Contact Info) Description 11/21/2018 Telephone [facility] OBGYN Services - [address] [address] Jordyn Wolfe, MARCELO Results Social History Tobacco [...] Briscoe RN - 12/04/2018 1114 EDT Called [facility] lab to see if there were any recent betas, they state pt had been seen in there ED last night for unrelated problem. Asked them if they could run a Beta HCG off of what they collected lastnight 12/03. Called [facility] lab to see if they were able to run the HCG and asked them to fax results to [phone]. They state they will call and fax results. * Telephone Encounter - Lisseth Briscoe RN - 12/01/2018 1156 EDT Call to [facility] lab who states pt has not been [...] you of your upcoming appt 12/08 @ 8985 for a consult. If you are not able to get yourlab work done, or if you cannot keep that 12/08 appt please call [phone] to let us know. Attempted to reach pt 2 more times with no answer, no further msg left. * Telephone Encounter - Jordyn Wolfe RN - 11/30/2018 1031 EDT Call to [facility] lab. Patient has not gone in [...] RN - 11/29/2018 0917 EDT Call to [facility] lab. Patient has not gone in for blood work yet. Will call patient. * Telephone Encounter - Jordyn Wolfe RN - 11/28/2018 1517 EDT Call to patient. Left message that the plan is for her to go to the lab for blood work( beta-hCG) retesting which she would be due today. Order is good at [facility] in [facility]. * Telephone Encounter - Jordyn Wolfe RN - 11/28/2018 1121 EDT Call to [facility] lab. Patient has not gone in [...] off that day. Patient will go to [facility]. Patient with no questions at this time. documented in this encounter Plan of Treatment Upcoming Encounters Date Type Department Care Team (Late st Contact Info) Description 02/21/2024 9:45 EDT Office Visit [facility] Adult Primary Care - [address] [address] Carrington Calderon MD [address] [address] 02/27/2024 8:30 EDT Telemedicine [facility] Sleep Program - [address] [address] Dwight Colbert [address] [place] [address] 02/29/2024 10:30 EDT Appointment [facility] Radiology Nuclear Medicine and PET [address] [id number] 02/29/2024 14:30 EDT Appointment [facility] Radiology Nuclear Medicine and PET [address] [id number] 03/01/2024 8:00 EDT Appointment [facility] Radiology Nuclear Medicine and PET [address] [phone] 03/01/2024 9:30 EDT Appointment [facility] Radiology Nuclear Medicine and PET [address] [phone] documented as of this encounter Visit Diagnoses Not on filedocumented in this encounter Care Teams Commercial Reporter Relationship Specialty Start Date End Date Benita Shafer NP PCP - General 08/22/18 06/17/19 documented as of this encounter
--- OUTSIDE RECORDS SUMMARY | 2024-02-10 01:28 | XMS_ITS | Encounter Summary ---
Author Organization [facility] Address [address] [place] [address] Care Team Providers Care Yarrow Gatherer Name Role Phone Benita Shafer GUSTAVO Primary Care Provider Reason for Referral * Consult (Routine) - Closed Specialty Diagnoses / Procedures Referred By Kit goode Referred To Contact Obstetrics Diagnoses Poorly controlled type 2 diabetes mellitus ([facility]LY [facility]-CMS) Tobacco dependence Class II obesity Jonas Ojeda MD [address] [place] [address] [facility] Ep4 Ob/Mfm [address] [place] [address] Referral ID Status Reason Start Date Expiration Date V isits Requested Visits Authorized [id number] Closed Specialty Services Required 11/03/2018 1 1 [...] Diagnoses Poorly controlled type 2 diabetes mellitus (HCC-CMS) Recurrent loss Jonas Ojeda MD [address] [place] [address] [facility] Endocrinology [address] [place] [address] Referral ID Status Reason Start Date Expiration Date Visits Requested Visits Authorized [id number] Specialty Report Received Specialty Services Required 11/03/2018 [...] with long-term current use of insulin ([facility]LY [facility]-CMS) Abnormal human chorionic gonadotropin (hCG) 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 Charu Flynn MD [address] [place] [address] [address] [place] [address] [facility] Mp4 Edis [address] [place] [address] Referral ID Status Reason Start Date Expiration Date Visits Requested Visits Authorized [id number] Specialty Report Received Specialty Services Required 10/26/2018 1 1 Encounter Details Date Type Department Care Team (Latest Contact Info) Description 11/03/2018 9:00 EDT Office Visit [facility] [address] [address] Jonas Ojeda MD [address] [place] [address] [phone] Poorly controlled type 2 diabetes mellitus (HCC-CMS) [...] from the patient and cross reviewing her [facility] records for accuracy. Of note, [...] her PCPs office (Benita Shafer NP - [place]) approximately 1 to 2 months ago. Patient reports feeling frustrated with her sugar control and would like a more aggressive management plan. She has never seen an table runner nor has been on an insulin pump, but she isvery interested in pursuing this. Other notable history includes tobacco dependence smoking approximately half a pack to a full pack per day for the last 4 years. She also smokes marijuana 1-2 times daily. Full review of her medical, surgical, medication, allergies, and social history obtained and is accurate and up-to-date in [facility]. OB History Para Term AB Living 7 0 0 0 7 0 SAB TAB Ectopic Multiple Live Births 6 0 1 0 0 # Outcome Date GA Lbr Partha/2nd Weight Sex Delivery Anes PTL Lv 7 Ectopic 10/2018 10w4d ECTOPIC Comments: interstitial diagnosed at [facility]; given MTX 10/26/18 6 SAB 01/2018 6w0d SAB Comments: D&C at [facility] after nonviable on US; had to have repeat D&Bhavna November for retained POCs 5 SAB 06/2017 6w0d SAB Comments: D&C at [facility]; nonviable seen on US; fourth with current 4 SAB 02/2017 6w0d SAB Comments: D&C at [facility]; third with current 3 SAB 08/2015 10w0d SAB Comments: D&C at [facility]; 2nd with current 2 SAB 01/2015 9w0d SAB Comments: D&C at [facility]; first current 1 SAB 2005 6w0d SAB Comments: first ; ex ; twin confirmed by US at [facility]; no medical or surgical tx Patient Active [...] 08/19. Followed by Dr. López[facility] in [place] Past Surgical History: Procedure Laterality Date ??? [...] not cover this medication. There is an zfsq-qgf-qufctii cream or an wngy-kys-yhozvod patch with a lower concentration that is [...] Hives Communicable Disease: None Review of Systems SECURITY REPRESENTATIVE ROS: negative Senior Qa Analyst Review of Systems Objective: BP 118/72 Physical Exam Assessment: 33 y.o. female with recurrent loss most certainly secondary to poorly controlled type 2 diabetes in conjunction with tobacco dependence who presents for consultation. Plan: Cristy was seen today for recurrent miscarriage. Diagnoses and all orders for this visit: Poorly controlled type 2 diabetes mellitus (FORMERLY [facility]) - AMB CONS/FOLLOW UP ENDOCRINOLOGY - AMB [...] pregnancies I would also recommend obtaining an M consult for preconception counseling given her multiple [...] MD, PGY5 Fellow Reproductive Endocrinology & Infertility [facility] 11/03/2018 / 9:54 EDIS Attending Addendum: [...] [facility] - [address] [phone] Carrington Calderon MD [address] [address] 02/27/2024 8:30 EDT Telemedicine [facility] Sleep Program - [address] [phone] Diwght Colbert [address] [place] [phone] 02/29/2024 10:30 EDT Appointment [facility] Radiology Nuclear Medicine and PET - [address] [phone] 02/29/2024 14:30 EDT Appointment [facility] Radiology Nuclear Medicine and PET [address] [id number] 03/01/2024 8:00 EDT Appointment [facility] Radiology Nuclear Medicine and PET - [address] [phone] 03/01/2024 9:30 EDT Appointment [facility] Radiology Nuclear Medicine and PET [address] [phone] Scheduled Referrals Name Type Priority Associated Diagnoses Order Schedule AMB CONS/FOLLOW UP ENDOCRINOLOGY Outpatient Referral Routine Poorly controlled type 2 diabetes mellitus ([facility]) Recurrent loss Ordered: 11/03/2018 AMB CONS/FOLLOW UP MATERNAL MEDICINE Outpatient Referral Routine Poorly controlled type 2 diabetes mellitus ([facility]) Tobacco dependence Class II obesity Ordered: 11/03/2018 documented as of this encounter Results * (ABNORMAL) THYROID CASCADE (11/03/2018 10:47 EDT) Pathologist [facility] TSH 0.40(L) 0.47 - 4.68 uIU/ml 11/03/2018 12:19 EDT [facility] Comment: TSH cascade is not recommended for patients in which pituitary or hypothalamic disorders are suspected. The results of this assay can be falsely lowered due to the consumption of Biotin. Blood specimen (specimen) BLOOD SPECIMEN / Unknown 11/03/2018 10:47 EDT 11/03/2018 11:17 EDT Jonas Ojeda MD CHEMISTRY & BLOOD GA S ORDERABLES [facility] [address] [place] [address] * PROLACTIN (11/03/2018 10:47 EDT) Pathologist [facility] Prolactin 5.4 ng/ml 11/03/2018 13:09 EDT [facility] Comment: Non-: 2.8-29.2 : 9.7-208.5 Post Menopausal: 1.8-20.3 Blood specimen (specimen) BLOOD SPECIMEN / Unknown 11/03/2018 10:47 EDT 11/03/2018 11:17 EDT Jonas Ojeda MD CHEMISTRY & BLOOD GA S ORDERABLES Performing Organization Address [facility] Co de Phone Number [facility] [address] [place] [address] * HEMOGLOBIN A1C (11/03/2018 10:47 EDT) Hemoglobin A1C 10.9 % 11/03/2018 15:29 EDT [facility] Comment: Reference Range: <5.7% Normal 5.7-6.4% Prediabetes =>6.5% Diagnostic for diabetes (if confirmed) Goals for glycemic control in diabetes ADA 2017 For non adults with diabetes: ?? Target <7.0% For children and adolescents with type 1 diabetes: ?? Target <7.5% More or less stringent targets may be appropriate for individual patients. Est Avg Glucose 266 mg/dl 9 15:29 EDT [facility] Comment: eAG represents the A1c result expressed as average glucose in mg/dl. Blood specimen (specimen) BLOOD SPECIMEN / Unknown 11/03/2018 10:47 EDT 11/03/2018 11:17 EDT Jonas Ojeda MD CHEMISTRY & BLOOD GA S ORDERABLES Performing Organization Address [facility] Co de Phone Number [facility] [address] [place] [address] documented in this encounter Visit Diagnoses Diagnosis Poorly controlled type 2 diabetes mellitus ([facility]-CMS)- Primary Type II or unspecified type diabetes mellitus without mention of complication, not stated as uncontrolled Recurrent loss Tobacco dependence Tobacco use disorder Class II obesity documented in this encounter Care Teams Yarrow Gatherer Relationship Specialty Start Date End Date Benita Shafer NP PCP - General 08/22/18 06/17/19 documented as of this encounter
--- OUTSIDE RECORDS SUMMARY | 2024-02-10 01:28 | XMS_ITS | Encounter Summary ---
Author Organization [facility] Address [address] [place] [address] Care Team Providers Care Lead Pharmacy Technician Name Role Phone Benita Shafer GUSTAVO Primary Care Provider [phone] Reason for Visit * Reason Onset Date Comments Labs Only 11/01/2018 Encounter Details Date Type Department Care Team (Late st Contact Info) Description 11/01/2018 Telephone [facility] OBGYN Services - [facility] [address] [place] [address] Charu Flynn MD [address] [facility] [address] [place] [address] Labs Only Social History Tobacco [...] RN - 11/01/2018 1606 EDT Spoke with [facility] BHCG today = 1652.8. Cristy ANDERSON: [...] to go to ER, can go to [facility] or [facility]. Spoke with Cristy: she denies SOB, but reports arm hurts when she coughs or moves, does not think her arm is swollen, reports had mild intermittent 4/10 cramping over weekend, no VB. Advised as HCG dropped appropriately will not need another MTX. She will proceed to [facility] ER. Spoke with ER triage: gave summary & Cristy ETA 5:30-6pm. * Telephone Encounter - Susana Tomlinson RN - 11/01/2018 1415 EDT Spoke with Radha @ [facility] lab, she could see [facility] lab orders [...] CBC (if needed) cannot be run from [facility]. [facility] to [phone] with quant HCG results. * Telephone Encounter - Miley Wolff - 11/01/2018 1400 EDT Radha from the outpatient lab at [facility] has some questions about the labwork for this patient. documented in this encounter Plan of Treatment Upcoming Encounters Date Type Department Care Team (Late st Contact Info) Description 02/21/2024 9:45 EDT Office Visit [facility] Adult Primary Care - [address] [phone] Carrington Calderon MD [address] [phone] 02/27/2024 8:30 EDT Telemedicine [facility] Sleep Program - [address] [phone] Dwight Colbert [address] [place] [address] [phone] 02/29/2024 10:30 EDT Appointment [facility] Radiology Nuclear Medicine and PET - [address] [phone] 02/29/2024 14:30 EDT Appointment [facility] Radiology Nuclear Medicine and PET - [address] [phone] 03/01/2024 8:00 EDT Appointment [facility] Radiology Nuclear Medicine and PET - [address] [id number] 03/01/2024 9:30 EDT Appointment [facility] Radiology Nuclear Medicine and PET - [address] [phone] documented as of this encounter Procedures Procedure Name Priority Date/Time Associated Diagnosis Comments QUANT BETA HCG, Routine 11/01/2018 11:09 EDT documented in this encounter Results * QUANT BETA HCG, (11/01/2018 11:09 EDT) HCG, External 1,652.8 2.39 - 1,500 mIU/mL [facility] Blood specimen (specimen) 11/01/2018 11:09 EDT Charu Flynn MD CHEMISTRY & BLOO D GAS ORDERABLES [facility] documented in this encounter Visit Diagnoses Not on filedocumented in this encounter Care Teams Lead Pharmacy Technician Relationship Specialty Start Date End Date Benita Shafer NP PCP - General 08/22/18 06/17/19 documented as of this encounter
--- OUTSIDE RECORDS SUMMARY | 2024-02-10 01:28 | XMS_ITS | Encounter Summary ---
Author Organization [facility] Address [address] [place] [address] Care Team Providers Care Real Estate Administrative Assistant Name Role Phone Benita Shafer LENS GRINDER APPRENTICE Primary Care Provider Encounter Details Date Type Department Care Team (Late st Contact Info) Description 11/03/2018 Orders Only [facility] OBGYN Services - [facility] [address] [place], [place] 8308[address] Charu Flynn MD [address] [address] Social History Tobacco Use Types Packs/Day [...] [facility] - [address] [phone] Carrington Calderon MD [address] [place] [address] 1 [place] [address] 02/27/2024 8:30 EDT Telemedicine [facility] Sleep Program - [address] [phone] Dwight Colbert [address] [place] [phone] 02/29/2024 10:30 EDT [facility] Rad[facility] Nuclear Medicine and PET - [address] [phone] 02/29/2024 14:30 EDT Appointment [facility] Radiology Nuclear Medicine and PET [address] [phone] 03/01/2024 8:00 EDT Appointment [facility] Radiology Nuclear Medicine and PET [address] [phone] 03/01/2024 9:30 EDT Appointment [facility] Radiology Nuclear Medicine and PET [address] [phone] documented as of this encounter Procedures Procedure Name Priority Date/Time Associated Diagnosis Comments QUANT BETA HCG, Routine 11/01/2018 11:09 EDT documented in this encounter Results * QUANT BETA HCG, (11/01/2018 11:09 EDT) HCG, External 1,652.8 2.39 - 15,000 mIU/mL [facility] Comment:Please see the scann ed report in EPIC for further interpretation. Blood specimen (specimen) 11/01/2018 11:09 EDT Charu Flynn MD CHEMISTRY & BLOO D GAS ORDERABLES [facility] documented in this encounter Visit Diagnoses Not on filedocumented in this encounter Care Teams Real Estate Administrative Assistant Relationship Specialty Start Date End Date Benita Shafer NP PCP - General 08/22/18 06/17/19 documented as of this encounter
--- OUTSIDE RECORDS SUMMARY | 2024-02-10 01:28 | XMS_ITS | Encounter Summary ---
Author Organization [facility] Address [address] [place] [address] Care Team Providers Care Monument Erector Name Role Phone Benita Shafer TECHNICAL SUPPORT DIRECTOR Primary Care Provider [phone] Reason for Visit * Reason Onset Date Comments Results 12/04/2018 Encounter Details Date Type Department Care Team (Late st Contact Info) Description 12/04/2018 Orders Only [facility] OBGYN Services - [address] [address] Lisseth Valdez RN Social History Tobacco Use [...] this encounter Progress Notes * Lisseth Briscoe, RN - 12/04/2018 6017 EDT Received Fax from [facility], results entered, will have faxed document scanned. documented in this encounter Plan of Treatment Upcoming Encounters Date Type Department Care Team (Late st Contact Info) Description 02/21/2024 9:45 EDT Office Visit [facility] Adult Primary Care - [address] [phone] Carrington Calderon MD [address] [phone] 02/27/2024 8:30 EDT Telemedicine [facility] Sleep Program - [address] 586261 Dwight Colbert [address] [place] [address] [phone] 02/29/2024 10:30 EDT Appointment [facility] Radiology Nuclear Medicine and [address] [phone] 02/29/2024 14:30 EDT Appointment [facility] Radiology Nuclear Medicine and [address] [phone] 03/01/2024 8:00 EDT Appointment [facility] Radiology Nuclear Medicine and PET [address] [phone] 03/01/2024 9:30 EDT Appointment [facility] Radiology Nuclear Medicine and PET [address] [phone] documented as of this encounter Procedures Procedure Name Priority Date/Time Associated Diagnosis Comments QUANT BETA HCG, Routine 12/03/2018 documented in this encounter Results * QUANT BETA HCG, (12/03/2018) HCG, External 41.94 mIU/ml [facility] Comment:non- <5 Blood specimen (specimen) 12/03/2018 Historical Provider CHEMISTRY & BLOOD GAS ORDERABLES [facility] documented in this encounter Visit Diagnoses Not on filedocumented in this encounter Care Teams Monument Erector Relationship Specialty Start Date End Date Benita Shafer NP PCP - General 08/22/18 06/17/19 documented as of this encounter
--- OUTSIDE RECORDS SUMMARY | 2024-02-10 01:28 | XMS_ITS | Encounter Summary ---
Author Organization [facility] Address [address] [place] [address] Care Team Providers Care Quilting Supervisor Name Role Phone Benita Shafer BATTERY TESTER FIELD Primary Care Provider [phone] Reason for Visit * Reason Comments Sore [...] 8:50 EDT - 11/21/2018 10:09 EDT [facility] Emergency Department - [address] [address] Josh Coelho, PA-C 111 [facility], Level [address] [place] [address] Emergency, MD Ekaterina Pharyngitis, unspecified etiology (Primary [...] sent through Care Everywhere. * SORE THROAT (ERITREAN) * STREP THROAT (ERITREAN) documented in this encounter Medications at Time [...] not cover this medication. There is an xinh-ttq-mztvbrj cream or an pmvj-tvh-upeycjo patch with a lower concentration that is [...] [facility] Adult Primary Care - [address] [phone] Carrington Calderon MD [address] [place] [phone] 02/27/2024 8:30 EDT Telemedicine [facility] Sleep Program - [address] [phone] Dwight Colbert [address] [place] [phone] 02/29/2024 10:30 EDT Appointment [facility] Radiology Nuclear Medicine and [address] [phone] 02/29/2024 14:30 EDT Appointment [facility] Radiology Nuclear Medicine and [address] [phone] 03/01/2024 8:00 EDT Appointment [facility] Radiology Nuclear Medicine and PET [address] [phone] 03/01/2024 9:30 EDT Appointment [facility] Radiology Nuclear Medicine and [address] [phone] documented as of this encounter Procedures Procedure Name Priority Date/Time Associated Diagnosis Comments GROUP A STREP CULTURE Routine 11/21/2018 9:25 EDT documented in this encounter Results * PHARYNGITIS CULTURE (11/21/2018 9:25 EDT) Result Mod STREPTOCOCCUS, BETA HEMOLYTIC GROUP A (STREPTOCOCCUS PYOGENES) 11/22/2018 13:12 EDT [facility] Specimen of unknown material (specimen) ENTIRE THROAT / Unknown 11/21/2018 9:25 EDT 11/21/2018 10:17 EDT Comment:Specimen submitted o n a flocked swab. Benita Sol MD MICROBIOLOGY - GENER AL ORDERABLES [facility] [address] [place] [address] documented in this encounter Visit Diagnoses Diagnosis [...] RN) documented in this encounter Care Teams Quilting Supervisor Relationship Specialty Start Date End Date Benita Shafer NP PCP - General 08/22/18 06/17/19 documented as of this encounter
--- OUTSIDE RECORDS SUMMARY | 2024-02-10 01:28 | XMS_ITS | Encounter Summary ---
Author Organization [facility] Address [address] [place] [address] Care Team Providers Care Supplier Specialist Name Role Phone Benita Shafer TRAY WORKER Primary Care Provider [phone] Reason for Visit * Reason Onset Date Comments Labs Only 12/12/2018 Encounter Details Date Type Department Care Team (Late st Contact Info) Description 12/12/2018 Telephone [facility] OBGYN Services - [address] [address] Susana Tomlinson, RN Labs Only Social History [...] RN - 12/12/2018 1002 EDT Spoke with [facility] lab: last HCG blood draw [...] [facility] Adult Primary Care - [address] 924651 Carrington Calderon MD [address] [phone] 02/27/2024 8:30 EDT Telemedicine [facility] Sleep Program - [address] 336101 Dwight Colbert [address] [place] [address]381 02/29/2024 10:30 EDT Appointment [facility] Radiology Nuclear Medicine and PET - [address] 687161 02/29/2024 14:30 EDT Appointment [facility] Radiology Nuclear Medicine and PET - [address] 612701 03/01/2024 8:00 EDT Appointment [facility] Radiology Nuclear Medicine and PET - [address] [address] 03/01/2024 9:30 EDT Appointment [facility] Radiology Nuclear Medicine and PET - [address] 265441 documented as of this encounter Visit Diagnoses Not on filedocumented in this encounter Care Teams Supplier Specialist Relationship Specialty Start Date End Date Benita Shafer NP PCP - General 08/22/18 06/17/19 documented as of this encounter
--- OUTSIDE RECORDS SUMMARY | 2024-02-10 01:28 | XMS_ITS | Encounter Summary ---
Author Organization [facility] Address [address] [place] [address] Care Team Providers Care Groundskeeping Maintenance Name Role Phone SoniBenita GUSTAVO Primary Care Provider [phone] Reason for Visit * Reason Comments Diabetes * Consult (3 - 10 Business Days) - Specialty Report Received Specialty Diagnoses / Procedures Referred By Kit goode Referred To Contact Endocrinology Diagnoses Poorly controlled type 2 diabetes mellitus ([facility]) Recurrent loss Jonas Ojeda MD [address] [place] [address] [phone] [facility] Endocrinology [address] [place] [address] Referral ID Status Reason Start Date Expiration Date Visits Requested Visits Authorized [id number] Specialty Report Received Specialty Services Required 11/03/2018 1 1 Encounter Details Date Type Department Care Team (Latest Contact Info) Description 11/10/2018 9:20 EDT Office Visit [facility] Endocrinology - [facility] [address] [place] [address] Sara Zafar NP [address] [place] [address] [address] [place] [address] Type 2 diabetes mellitus with hyperglycemia, with long-term current use of insulin ([facility]) (Primary Dx) Social History Tobacco Use Types [...] calL with med adjustments RD referral in [place] Take food records BS pre meal 80-120 [...] trimester miscarriages, most recently terminated a at [facility] 11/01/2018. Recurrent loss attributed to to poorly controlled type 2 diabetes in conjunction with tobacco dependence. She saw [facility] on 11/03/2018, and was advised to get [...] her PCPs office (Benita Shafer, GUSTAVO - [place]) approximately 1 to 2 months ago . [...] 4 siblings, knows about 2, noDM. 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 Very oc. [...] skin at bedtime. ??? lancets One Touch DelNewsPin or other brand compatible with lancing device and covered by patient'sinsurance. (Patient not taking: Reported on 11/10/2018) 100 Each 2 ??? lidocaine 5 % (LIDODERM) 5 % patch To area of pain, apply for 12 hours on, then 12 hours off. Some insurance companies do not cover this medication. There is an vakm-wqu-ikhpldo cream or an xuqo-cfc-xbrdtha patch with a lower concentration that is [...] to work closely with anRD either at [facility] or here to learn CHO ect, [...] and requirements I will calL with med [facility] RD referral in [place] Take food records BS pre meal 80-120 [...] [facility] Adult Primary Care - [address] [phone] Carrington Calderno MD [address] [phone] 02/27/2024 8:30 EDT Telemedicine [facility] Sleep Program - [address] 952161 Dwight Colbert [address] [place] [address] [phone] 02/29/2024 10:30 EDT Appointment [facility] Radiology Nuclear Medicine and PET - [address] 095111 02/29/2024 14:30 EDT Appointment [facility] Radiology Nuclear Medicine and PET - [address] [address] 03/01/2024 8:00 EDT Appointment [facility] Radiology Nuclear Medicine and PET [address] [address] 03/01/2024 9:30 EDT Appointment [facility] Radiology Nuclear Medicine and PET [address] [address] documented as of this encounter Visit Diagnoses Diagnosis Type 2 diabetes mellitus with hyperglycemia, with long-term current use of insulin ([facility])- Primary documented in this encounter Care Teams Groundskeeping Maintenance Relationship Specialty Start Date End Date Benita Shafer NP PCP - General 08/22/18 06/17/19 documented as of this encounter
--- OUTSIDE RECORDS SUMMARY | 2024-02-10 01:28 | XMS_ITS | Encounter Summary ---
Author Organization [facility] Address [address] [place] [address] Care Team Providers Care Car Filler Name Role Phone Benita Shafer DOORPERSON Primary Care Provider Reason for Visit * Reason Onset Date Comments Labs Only 11/09/2018 Encounter Details Date Type Department Care Team (Late st Contact Info) Description 11/09/2018 Telephone [facility] OBGYN Services - [address] [address] Susana Tomlinson, RN Labs Only Social History [...] VM, left general message: Nurse calling from [facility], calling to check in & see how you are doing, also to remind you to get your blood work done, ok to get it drawn at [facility] to let us know when done & how you are doing. documented in this encounter Plan of Treatment Upcoming Encounters Date Type Department Care Team (Late st Contact Info) Description 02/21/2024 9:45 EDT Office Visit [facility] Adult Primary Care - [address] [phone] Carrington Calderon MD [address] [phone] 02/27/2024 8:30 EDT Telemedicine [facility] Sleep Program - [address] [phone] Dwight Colbert [address] [place] [address] [phone] 02/29/2024 10:30 EDT Appointment [facility] Radiology Nuclear Medicine and PET - [address] [address] 02/29/2024 14:30 EDT Appointment [facility] Radiology Nuclear Medicine and PET [address] 046481 03/01/2024 8:00 EDT Appointment [facility] Radiology Nuclear Medicine and PET [address] 912541 03/01/2024 9:30 EDT Appointment [facility] Radiology Nuclear Medicine and PET - [address] 459281 documented as of this encounter Visit Diagnoses Not on filedocumented in this encounter Care Teams Car Filler Relationship Specialty Start Date End Date Benita Shafer NP PCP - General 08/22/18 06/17/19 documented as of this encounter
--- OUTSIDE RECORDS SUMMARY | 2024-02-10 01:28 | XMS_ITS | Encounter Summary ---
Author Organization [facility] Address [address] [place] [address] Care Team Providers Care Human Insights Lead Ads Marketing Name Role Phone Benita Shafer GUSTAVO Primary Care Provider [phone] Encounter Details Date Type Department Care Team (Late st Contact Info) Description 11/10/2018 8:38 EDT - 11/10/2018 23:59 EDT Hospital Encounter [facility] [address] [place] [address] Charu Flynn MD [address] [facility] Level [address] [place] [address] Discharge Disposition: Auto Discharge Social [...] skin at bedtime. 11/26/2019 lancets One Touch DelKeduo or other brand compatible with lancing device and covered by patient's insurance. 100 Each 2 10/19/2018 10/01/2019 lidocaine 5 % (LIDODERM) 5 % patch To area of pain, apply for 12 hours on, then 12 hours off. Some insurance companies do not cover this medication. There is an wexw-ebo-ybaqung cream or an hoku-pri-oacwdlw patch with a lower concentration that is [...] Visit [facility] Adult Primary Care - [address] [phone] Carrington Calderon MD 1 [facility] 1 [place] [address] 02/27/2024 8:30 EDT Telemedicine [facility] Sleep Program - [address] [address] Dwight Colbert [address] [place] [phone] 02/29/2024 10:30 EDT Appointment [facility] Radiology Nuclear Medicine and PET [address] [address] 02/29/2024 14:30 EDT Appointment [facility] Radiology Nuclear Medicine and PET [address] [address] 03/01/2024 8:00 EDT Appointment [facility] Radiology Nuclear Medicine and PET [address] [phone] 03/01/2024 9:30 EDT Appointment [facility] Radiology Nuclear Medicine and PET [address] 029221 documented as of this encounter Visit Diagnoses Not on filedocumented in this encounter Care Teams Human Insights Lead Ads Marketing Relationship Specialty Start Date End Date Benita Shafer NP PCP - General 08/22/18 06/17/19 documented as of this encounter
--- OUTSIDE RECORDS SUMMARY | 2024-02-10 01:28 | XMS_ITS | Encounter Summary ---
Author Organization [facility] Address [address] [place] [address] Care Team Providers Care Materials Associate Name Role Phone Benita Shafer UROLOGIST PHYSICIAN Primary Care Provider Reason for Visit * Reason Onset Date Comments Labs Only 11/17/2018 Encounter Details Date Type Department Care Team (Late st Contact Info) Description 11/17/2018 Telephone [facility] OBGYN Services - [address] [address] Jordyn Wolfe, RN Labs Only Social History [...] 18. Patient has not gone to either [facility] lab or [facility] lab. * Telephone Encounter - Jordyn Wolfe [...] PM. Patient plans to go to the [facility] lab tomorrow morning around 9 [...] [facility] Adult Primary Care - [address] [address] Carrington Calderon MD 1 [facility] Level 1 [place] [address] 02/27/2024 8:30 EDT Telemedicine [facility] Sleep Program - [address] [place] [address] Sayra Dwight [address] [place] [address] 02/29/2024 10:30 EDT Appointment [facility] Radiology Nuclear Medicine and PET - [address] [address] 02/29/2024 14:30 EDT Appointment [facility] Radiology Nuclear Medicine and PET [address] [address] 03/01/2024 8:00 EDT Appointment [facility] Radiology Nuclear Medicine and PET [address] 437031 03/01/2024 9:30 EDT Appointment [facility] Radiology Nuclear [place] [address] documented as of this encounter Visit Diagnoses Not on filedocumented in this encounter Care Teams Materials Associate Relationship Specialty Start Date End Date Benita Shafer NP PCP - General 08/22/18 06/17/19 documented as of this encounter
--- OUTSIDE RECORDS SUMMARY | 2024-02-10 01:28 | XMS_ITS | Encounter Summary ---
Author Organization [facility] Address [address] [place] [address] Care Team Providers Care Carbonizer Tester Name Role Phone Benita Shafer ROOF FITTER Primary Care Provider [phone] Reason for Visit * Reason Onset Date Comments Results 12/13/2018 Encounter Details Date Type Department Care Team (Late st Contact Info) Description 12/13/2018 Telephone [facility] OBGYN Services - [address] [address] Susana Tomlinson, MARCELO Results Social History Tobacco [...] Telephone Encounter - Susana Tomlinson, RN - 12/13/2018 1013 EDT Spoke with [facility] lab: Cristy got her blood drawn thsi am, however the machine that is used to process BHCG is not working, they anticipate that it will be fixed tomorrow. documented in this encounter Plan of Treatment Upcoming Encounters Date Type Department Care Team (Late st Contact Info) Description 02/21/2024 9:45 EDT Office Visit [facility] Adult Primary Care - [address] [phone] Carrington Calderon MD [address] [phone] 02/27/2024 8:30 EDT Telemedicine [facility] Sleep Program - [address] [phone] Dwight Colbert [address] [place] [phone] 02/29/2024 10:30 EDT Appointment [facility] Radiology Nuclear Medicine and PET [address] [phone] 02/29/2024 14:30 EDT Appointment [facility] Radiology Nuclear Medicine and PET [address] [phone] 03/01/2024 8:00 EDT Appointment [facility] Radiology Nuclear Medicine and PET [address] [phone] 03/01/2024 9:30 EDT Appointment [facility] Radiology Nuclear Medicine and PET [address] [phone] documented as of this encounter Visit Diagnoses Not on filedocumented in this encounter Care Teams Carbonizer Tester Relationship Specialty Start Date End Date Benita Shafer NP PCP - General 08/22/18 06/17/19 documented as of this encounter
--- OUTSIDE RECORDS SUMMARY | 2024-02-10 01:28 | XMS_ITS | Encounter Summary ---
Author Organization [facility] Address [address] [place] [address] Care Team Providers Care Visitor Use Assistant Name Role Phone Benita Shafer BLISTER PACKING MACHINE TENDER Primary Care Provider [phone] Reason for Visit * Reason Comments Arm Pain pt to ed c/o right s houlder pain that radiates down to right hand. pt states pain started last while walking. distal CSMT intact. denies trauma. 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 There is an mscd-tlu-wcnprdd cream or an fqzj-owl-ycugrpr patch with a lower concentration that is [...] not cover this medication. There is an ygie-jmk-xkkmxmg cream or an bgtl-mrz-efhwoem patch with a lower concentration that is [...] exam for emergent medical conditions at the [facility] on 11/01/2018 Scribe attestation: This [...] to verify the correct patient, procedure, equipment, clerical support and site/side marked as required. Indications: [...] sudden decompensation. * Angelika Dallas - 11/01/2018 1746 EDT TCALL: Cristy Luo [birth year]. CC: Ectopic [...] [facility] Adult Primary Care - [address] 224331 Carrington Calderon MD [address] [phone] 02/27/2024 8:30 EDT Telemedicine [facility] Sleep Program - [address] [phone] Dwight Colbert [address] [place] [address] 02/29/2024 10:30 EDT Appointment [facility] Radiology Nuclear Medicine and PET [address] [address] 02/29/2024 14:30 EDT Appointment [facility] Radiology Nuclear Medicine and PET [address] 342181 03/01/2024 8:00 EDT Appointment [facility] Radiology Nuclear Medicine and PET [address] [phone] 03/01/2024 9:30 EDT Appointment [facility] Radiology Nuclear Medicine and PET [address] [address] documented as of this encounter Procedures Procedure [...] 4.0 - 12.4 K/cmm 11/01/2018 20:22 EDT [facility] RBC 4.63 3.86 - 5.04 M/cmm 11/01/2018 20:22 EDT [facility] Hemoglobin 14.2 11.6 - 15.2 gm/dl 11/01/2018 20:22 EDT [facility] HCT 41.0 34.9 - 44.4 % 11/01/2018 20:22 EDT [facility] MCV 89 81 - 98 fl 11/01/2018 20:22 EDT [facility] MCH 30.7 26.7 - 33.3 pg 11/01/2018 20:22 [facility] MCHC 34.6 32.1 - 35.9 gm/dl 11/01/2018 20:22 [facility] RDW-CV 12.1 <14.7 % 11/01/2018 20:22 [facility] RDW-SD 38.3 <50.4 fl 11/01/2018 20:22 [facility] PLT 351 141 - 377 K/[facility] 11/01/2018 20:22 [facility] MPV 9.8 9.5 - 12.7 fl 11/01/2018 20:22 [facility] Neutrophils 59.3 % 11/01/2018 20:49 [facility] Lymphocytes 32.7 % 11/01/2018 20:49 [facility] Monocytes 4.4 % 11/01/2018 20:49 [facility] Eosinophils 2.7 % 11/01/2018 20:49 [facility] % Atyp Lymphs 0.9 % 11/01/2018 20:49 [facility] ABS Neutrophils 10.28(H) 2.20 - 8.85 K/cm 11/01/2018 20:49 [facility] ABS Lymphs 5.67(H) 1.09 - 3.30 K/cm 11/01/2018 20:49 [facility] ABS Monocytes 0.76 0.1 - 0.8 K/cmm 11/01/2018 20:49 [facility] ABS Eosinophils 0.47 0.03 - 0.61 K/cm 11/01/2018 20:49 [facility] ABS Atyp Lymphs 0.16 K/cm 9 20:49 [facility] Type of Diff: Manual 11/01/2018 20:49 [facility] Blood specimen (specimen) BLOOD SPECIMEN / Unknown 11/01/2018 19:38 EDT 11/01/2018 19:55 EDT Kevan Gr MD PACKAGES & DNA PROBE ORDERABLES Performing Organization Address City/[facility]/ZIP Co de Phone Number [facility] [address] [place] [address] * (ABNORMAL) BASIC METABOLIC PANEL (BMP) (11/01/2018 19:38 EDT) Sodium 136 136 - 145 mEq/L 11/01/2018 20:16 [facility] Potassium 4.1 3.5 - 5.0 mEq/L 11/01/2018 20:16 [facility] Chloride 99 96 - 110 mEq/L 11/01/2018 20:16 [facility] CO2 27 22 - 32 mEq/L 11/01/2018 20:16 [facility] BUN 10 10 - 26 mg/dl 11/01/2018 20:16 [facility] Creatinine 0.39(L) 0.52 - 1.04 mg/dl 11/01/2018 20:16 [facility] GFR, Calculated 138 >60 ml/min/1.7 3m2 11/01/2018 20:16 [facility] Comment: eGFR calculated using CKD-EPI equation for non Americans. Multiply eGFR by 1.16 for Americans. Calcium 10.2 8.5 - 10.5 mg/dl 11/01/2018 20:16 [facility] Calculated Calcium 10.2 8.5 - 10.5 mg/dl 11/01/2018 20:16 [facility] Glucose, Serum 225(H) 70 - 100 mg/dl 11/01/2018 20:16 [facility] Fasting? Unknown 11/01/2018 19:56 [facility] Blood specimen (specimen) BLOOD SPECIMEN / Unknown 11/01/2018 19:38 EDT 11/01/2018 19:55 EDT Kevan Gr MD CHEMISTRY & BLOOD GA S ORDERABLES Performing Organization Address City/[facility]/ZIP Co de Phone Number [facility] [address] [place] [address] * CK (11/01/2018 19:38 EDT) CK 42 30 - 135 U/L 11/01/2018 20:16 EDT [facility] Blood specimen (specimen) BLOOD SPECIMEN / Unknown 11/01/2018 19:38 EDT 11/01/2018 19:55 EDT Kevan Gr MD CHEMISTRY & BLOOD GA S ORDERABLES Performing Organization Address [facility] Co de Phone Number [facility] [address] [place] [address] * Nerve Block (11/01/2018 19:09 EDT) Narrative [facility] EKG - 11/01/2018 19:09 EDT [...] to verify the correct patient, procedure, equipment, clerical support and site/side marked as required. Indications: [...] PROCEDURE/MINOR SURG ICAL ORDERABLES Performing Organization Address City/[facility]/ZIP Co de Phone Number [facility] EKG documented in this encounter [...] RN) documented in this encounter Care Teams Visitor Use Assistant Relationship Specialty Start Date End Date Benita Shafer NP PCP - General 08/22/18 06/17/19 documented as of this encounter
--- OUTSIDE RECORDS SUMMARY | 2024-02-10 01:29 | XMS_ITS | Encounter Summary ---
Author Organization Health system Address [address] [place] [address] Care Team Providers Care Car Pusher Name Role Phone None, Provider Primary Care Provider Unavailabl e Reason for Visit * Reason Onset Date Comments Eye Problem 07/29/2016 Encounter Details Date Type Department Care Team (Late st Contact Info) Description 07/29/2016 Telephone [facility] Ophthalmology - [address] [phone] Unknown, Provider, Eye Problem Social History Tobacco [...] he will see pt tomorrow. Catherine Alonzo ([facility]) calling pt to schedule. * Telephone [...] to you in the next two hours? [phone], can leavea message (VERIFY THE PHONE NUMBERS REGARDLESS OF WHAT IS IN THE SYSTEM.) (Please remember to ask the MD what he/she needs from the paper chart.) * Telephone Encounter - Catherine Donald - 07/29/2016 9934 EST Pt was seen at ed. documented in this encounter Plan of Treatment Upcoming Encounters Date Type Department Care Team (Late st Contact Info) Description 02/21/2024 9:45 EDT Office Visit [facility] Adult Primary Care - [address] [address] Carrington Calderon MD 1 [facility] 1 [place] [address] 02/27/2024 8:30 EDT Telemedicine [facility] Sleep Program - [address] [address] Colbert Dwight [address] [place] [address] [phone] 02/29/2024 10:30 ED[facility] [address] [phone] 02/29/2024 14:30 EDT Appointment [facility] Radiology Nuclear Medicine and PET [address] [phone] 03/01/2024 8:00 EDT Appointment [facility] Radiology Nuclear Medicine and PET [address] [phone] 03/01/2024 9:30 EDT Appointment [facility] Radiology Nuclear Medicine and PET [address] [phone] documented as of this encounter Visit Diagnoses Not on filedocumented in this encounter Care Teams Car Pusher Relationship Specialty Start Date End Date None, Provider PCP - General 03/08/16 08/21/18 documented as of this encounter
--- OUTSIDE RECORDS SUMMARY | 2024-02-10 01:29 | XMS_ITS | Encounter Summary ---
Author Organization [facility] Address [address] [place] [address] Care Team Providers Care Loader Technician Name Role Phone Benita Shafer GUSTAVO Primary Care Provider [phone] Encounter Details Date Type Department Care Team (Late st Contact Info) Description 10/29/2018 9:12 EDT - 10/29/2018 23:59 EDT Hospital Encounter [facility] [address] [place] [address] Charu Flynn MD 111 [facility], Level 4 [place] [address] Discharge Disposition: Home or Self [...] or Self Half-Way documented in this encounter Plan of Treatment Upcoming Encounters Date Type Department Care Team (Late st Contact Info) Description 02/21/2024 9:45 EDT Office Visit [facility] Adult Primary Care - [address] 575381 Carrington Calderon MD 1 [facility] 1 [place] [phone] 02/27/2024 8:30 EDT Telemedicine [facility] Sleep Program - [address] 233971 Dwight Colbert [address] [place] [place] [address]68[address] 02/29/2024 10:30 EDT Appointment [facility] Center Radiology Nuclear Medicine and PET - [address] [phone] 02/29/2024 14:30 EDT Appointment [facility] Center Radiology Nuclear Medicine and PET - [address] 630531 03/01/2024 8:00 EDT Appointment [facility] Radiology Nuclear Medicine and PET - [address] 388031 03/01/2024 9:30 EDT Appointment [facility] Radiology Nuclear Medicine and PET [address] 029391 documented as of this encounter Visit Diagnoses Not on filedocumented in this encounter Care Teams Loader Technician Relationship Specialty Start Date End Date Benita Shafer NP PCP - General 08/22/18 06/17/19 documented as of this encounter
--- OUTSIDE RECORDS SUMMARY | 2024-02-10 01:29 | XMS_ITS | Encounter Summary ---
Author Organization [facility] Address [address] [place] [address] Care Team Providers Care Transliterator Name Role Phone Benita Shafer CHILD CARE CENTER ADMINISTRATOR Primary Care Provider [phone] Reason for Visit * Reason Onset Date Comments Follow-up 09/06/2018 Encounter Details Date Type Department Care Team (Late st Contact Info) Description 09/06/2018 Telephone [facility] Urgent Care - [address] [address] Valencia Davila RN [address] [address] Follow-up Social History Tobacco Use Types Packs/Day [...] to follow up with her Opthalmologist in [facility], Per Dr Blanco we would like to [...] Medical Center Adult Primary Care - [address] 301621 Carrington Calderon MD [address] [address] 02/27/2024 8:30 EDT Telemedicine [facility] Sleep Program - [address] [phone] Dwight Colbert [address] [place] [address] 02/29/2024 10:[address] [facility] Radiology Nuclear Medicine and PET - [facility] [address] [place], [place] [address] 02/29/2024 14:30 EDT Appointment [facility] Radiology Nuclear Medicine and PET - [address] [phone] 03/01/2024 8:00 EDT Appointment [facility] Radiology Nuclear Medicine and PET - [address] [phone] 03/01/2024 9:30 EDT Appointment [facility] Radiology Nuclear Medicine and PET - [address] [address] documented as of this encounter Visit Diagnoses Not on filedocumented in this encounter Care Teams Transliterator Relationship Specialty Start Date End Date Benita Shafer NP PCP - General 08/22/18 06/17/19 documented as of this encounter
--- OUTSIDE RECORDS SUMMARY | 2024-02-10 01:29 | XMS_ITS | Encounter Summary ---
Author Organization [facility] Address [address] [place] [address] Care Team Providers Care It Network Administrator Name Role Phone None, Provider Primary [...] 20:46 EDT - 12/05/2016 2:52 EDT Emergency [facility] Emergency Department - [address] [address] Benita Sol MD [address] [place] [address], Level 1 [place] [address] Emergency, MD Ekaterina Type 2 diabetes mellitus with hyperglycemia, with long-term current use of insulin ([facility]) (Primary Dx) Discharge Disposition: Home or Self [...] Allergy status to analgesic agent status-Z88.6[ICD-10-CM] Z79.4 jail (current) use of insulin-Z79.4[ICD-10-CM] documented in this encounter Discharge Instructions * Discharge Instructions* Benita Sol MD - 12/05/2016 2:13 EDT Metformin is $4/month at [facility]. Please see a primary care doctor [facility]. You can call from our list of accepting providers. Continue to take your Lantus. This is very important. * Attachments The following attachments cannot be sent through Care Everywhere. * DIABETES: TYPE 2: METFORMIN: GENERAL INFO (MACEDONIAN) * DIABETES DIET GUIDELINES: GENERAL INFO (MACEDONIAN) documented in this encounter Medications at Time [...] Value Status Glucose, Fingerstick 350 (*) Final Speech And Language Assistant ID [id number] Final GLUCOSE, GLUCOMETER - Abnormal Glucose, Fingerstick 316 (*) Final Speech And Language Assistant ID [id number] Final HEMAGRAM AND DIFFERENTIAL - Abnormal WBC [...] Bilirubin Neg Final Ketones Neg Final Specific Itmann 1.020 Final pH 6.0 Final Protein Neg Final Urobilinogen 0.2 Final Nitrite Neg Final Leuk Esterase Neg Final Tech ID [id number] Final POCT TEST, CLINITEK UPT Result Neg Final Tech ID [id number] Final POCT GLUCOSE Relevant Data Procedures ED [...] the Emergency Department: Improved PCP: Provider None [facility] 12/05/2016 9:25 No flowsheet data found. [...] [facility] Adult Primary Care - [place] 1 [place], [place] 8[address] Carrington Calderon MD [address] [place] [address] 1 [place] [address] 02/27/2024 8:30 EDT Telemedicine [facility] Sleep Program - [address] [address] Dwight Colbert [address] [place] [address] 02/29/2024 10:30 EDT Appointment [facility] Radiology Nuclear Medicine and PET [address] 100611 02/29/2024 14:30 EDT Appointment [facility] Radiology Nuclear Medicine and PET [address] 111081 03/01/2024 8:00 EDT Appointment [facility] Radiology Nuclear Medicine and PET [address] [address] 03/01/2024 9:30 EDT Appointment [facility] Radiology Nuclear Medicine and PET [address] 767341 documented as of this encounter Procedures Procedure [...] EDT) Color YELLOW 12/05/2016 1:24 EDT [facility] Clarity, UA Clear 12/05/2016 1:24 EDT [facility] Glucose 3+(A) Neg 12/05/2016 1:24 EDT [facility] Bilirubin Neg Neg 12/05/2016 1:24 EDT [facility] Ketones Neg Neg 12/05/2016 1:24 EDT [facility] Specific Itmann 1.020 1.001 - 1.035 12/05/2016 1:24 EDT [facility] Blood 2+(A) Neg 12/05/2016 1:24 EDT [facility] pH 6.0 4.6 - 8.0 12/05/2016 1:24 EDT [facility] Protein Neg Neg 12/05/2016 1:24 EDT [facility] Urobilinogen 0.2 0.2 - 1.0 E.U./dl 12/05/2016 1:24 EDT [facility] Nitrite Neg Neg 12/05/2016 1:24 EDT [facility] Leuk Esterase Neg Neg 12/05/2016 1:24 T [facility] transportation services representative ID [id number] 12/05/2016 1:24 EDT [facility] Comment:Test performed at Em ergency Department Urine specimen (specimen) URINE / Unknown 12/05/2016 1:16 EDT 12/05/2016 1:24 EDT Benita Sol MD POINT OF CARE TEST O RDERABLES [facility] [address] [place] [address] * POCT TEST, CLINITEK (12/05/2016 1:14 EDT) UPT Result Neg Neg 12/05/2016 1:27 EDT [facility] transportation services representative ID [id number] 12/05/2016 1:27 [facility] Comment:Test performed at Em ergency Department Urine specimen (specimen) URINE / Unknown 12/05/2016 1:14 EDT 12/05/2016 1:27 EDT Benita Sol MD POINT OF CARE TEST O RDERABLES [facility] [address] [place] [address] * (ABNORMAL) BASIC METABOLIC PANEL (12/05/2016 1:03 EDT) Sodium 140 136 - 145 mEq/L 12/05/2016 1:41 [facility] Potassium 4.4 3.5 - 5.0 mEq/L 12/05/2016 1:41 [facility] Chloride 101 96 - 110 mEq/L 12/05/2016 1:41 [facility] CO2 26 22 - 32 mEq/L 12/05/2016 1:41 [facility] BUN 14 10 - 26 mg/dl 12/05/2016 1:41 [facility] Creatinine 0.48(L) 0.52 - 1.04 mg/dl 12/05/2016 1:41 [facility] GFR, Calculated 131 >60 ml/min/1.7 3m2 12/05/2016 1:41 [facility] Comment: eGFR calculated using CKD-EPI equation for non Americans. Multiply eGFR by 1.16 for Americans. Calcium 9.9 8.5 - 10.5 mg/dl 12/05/2016 1:41 [facility] Calculated Calcium 9.7 8.5 - 10.5 mg/dl 12/05/2016 1:41 [facility] Glucose, Serum 295(H) 70 - 100 mg/dl 12/05/2016 1:41 [facility] Fasting? Unknown 12/05/2016 1:17 [facility] Blood specimen (specimen) BLOOD SPECIMEN / Unknown 12/05/2016 1:03 EDT 12/05/2016 1:17 EDT Benita Sol MD CHEMISTRY & BLOOD GA S ORDERABLES [facility] [address] [place] [address] * (ABNORMAL) HEMAGRAM AND DIFFERENTIAL (12/05/2016 1:03 EDT) WBC 16.71(H) 4.0 - 12.4 K/cmm 12/05/2016 1:22 [facility] RBC 5.08(H) 3.86 - 5.04 M/cmm 12/05/2016 1:22 [facility] Hemoglobin 15.6(H) 11.6 - 15.2 gm/dl 12/05/2016 1:22 [facility] HCT 43.8 34.9 - 44.4 % 12/05/2016 1:22 [facility] MCV 86 81 - 98 fl 12/05/2016 1:22 [facility] MCH 30.7 26.7 - 33.3 pg 12/05/2016 1:22 [facility] MCHC 35.6 32.1 - 35.9 gm/dl 12/05/2016 1:22 [facility] RDW-CV 12.2 <14.7 % 12/05/2016 1:22 [facility] RDW-SD 38.3 <50.4 fl 12/05/2016 1:22 [facility] PLT 415(H) 141 - 377 K/cmm 12/05/2016 1:22 [facility] MPV 9.6 9.5 - 12.7 fl 12/05/2016 1:22 [facility] Neutrophils 54.0 % 12/05/2016 2:05 [facility] Lymphocytes 34.0 % 12/05/2016 2:05 [facility] Monocytes 7.0 % 12/05/2016 2:05 [facility] Eosinophils 3.0 % 12/05/2016 2:05 [facility] Basophils 2.0 % 12/05/2016 2:05 EDT [facility] ABS Neutrophils 9.03(H) 2.20 - 8.85 K/cmm 12/05/2016 2:05 EDT [facility] ABS Lymphs 5.68(H) 1.09 - 3.30 K/cmm 12/05/2016 2:05 T [facility] ABS Monocytes 1.17(H) 0.1 - 0.8 K/cmm 12/05/2016 2:05 EDT [facility] ABS Eosinophils 0.50 0.03 - 0.61 K/cmm 12/05/2016 2:05 [facility] ABS Basophils 0.33(H) 0.01 - 0.11 K/cmm 12/05/2016 2:05 [facility] Type of Diff: Manual 12/05/2016 2:05 T [facility] Blood specimen (specimen) BLOOD SPECIMEN / Unknown 12/05/2016 1:03 EDT 12/05/2016 1:18 EDT Benita Sol MD PACKAGES & DNA PROBE ORDERABLES [facility] [address] [place] [address] * (ABNORMAL) GLUCOSE, GLUCOMETER (12/05/2016 0:32 EDT) Glucose, Fingerstick 316(H) 70 - 100 mg/dl 12/05/2016 0:32 EDT [facility] Speech And Language Assistant ID [id number] 12/05/2016 0:32 EDT [facility] Comment:Test Performed by [facility] Services BLOOD SPECIMEN / Unknown 12/05/2016 0:32 EDT 12/05/2016 0:33 EDT Provider Unknown CHEMISTRY & BLOOD GA S ORDERABLES Performing Organization Address City/[facility]/ZIP Co de Phone Number [facility] [address] [place] [address] * (ABNORMAL) GLUCOSE, GLUCOMETER (12/04/2016 20:58 EDT) Glucose, Fingerstick 350(H) 70 - 100 mg/dl 12/04/2016 21:02 EDT [facility] Speech And Language Assistant ID [id number] 12/04/2016 21:02 EDT [facility] Comment:Test Performed by [facility] BLOOD SPECIMEN / Unknown 12/04/2016 20:58 EDT 12/04/2016 21:02 EDT Provider Unknown CHEMISTRY & BLOOD GA S ORDERABLES [facility] [address] [place] [address] documented in this encounter Visit Diagnoses Diagnosis Type 2 diabetes mellitus with hyperglycemia, with long-term current use of insulin ([facility])- Primary documented in this encounter Administered [...] Radha Ritchie, [id number] (Completed - Provider: Radha Ritcihe RN) documented in this encounter Orders Medications [...] 12/05/2016 documented in this encounter Care Teams It Network Administrator Relationship Specialty Start Date End Date None, Provider PCP - General 03/08/16 08/21/18 documented as of this encounter
--- OUTSIDE RECORDS SUMMARY | 2024-02-10 01:29 | XMS_ITS | Encounter Summary ---
Author Organization [facility] Address [address] [place] [address] Care Team Providers Care Bilingual Social Worker Name Role Phone None, Provider Primary [...] Info) Description 07/30/2016 12:30 EST Office Visit [facility] Ophthalmology - [address] [address] Broderick Schwartz MD [address] [place] [address], Level 5 [place] [address] Social History Tobacco Use Types [...] Psychiatric: NL Endocrine: Diabetes Hematologic: NL Immunologic: Bead Preparer: Exposures: Other: Attestation: Allergies include: Citalopram and [...] Medical Center Adult Primary Care - [address] [phone] Carrington Calderon MD 1 [facility] Level 1 [place] [address] 02/27/2024 8:30 EDT Telemedicine [facility] Sleep Program - [address] [place] 1 [place] [address] Dwight Colbert [address] [place] [address] 02/29/2024 10:30 EDT [facility] Radiology Nuclear Medicine and PET - [address] [address] 02/29/2024 14:30 EDT Appointment [facility] Radiology Nuclear Medicine and PET [address] [address] 03/01/2024 8:00 EDT Appointment [facility] Radiology Nuclear Medicine and PET [address] [id number] 03/01/2024 9:30 EDT Appointment [facility] Radiology Nuclear Medicine and PET [address] [address] documented as of this encounter Visit Diagnoses [...] Normal Normal Vessels Normal Normal Care Teams Bilingual Social Worker Relationship Specialty Start Date End Date None, Provider PCP - General 03/08/16 08/21/18 documented as of this encounter
--- OUTSIDE RECORDS SUMMARY | 2024-02-10 01:29 | XMS_ITS | Encounter Summary ---
Author Organization [facility] Address [address] [place] [address] Care Team Providers Care Senior Health Consultant Name Role Phone Benita Shafer GUSTAVO Primary Care Provider [phone] Encounter Details Date Type Department Care Team (Late st Contact Info) Description 10/26/2018 11:36 EDT - 10/26/2018 23:59 EDT Hospital Encounter [facility] [address] [place] [address] hCaru Flynn MD 111 [facility], Level 4 [place] [address] Discharge Disposition: Home or Self [...] Code Departure Means Destination Home or Self Halfway documented in this encounter Plan of Treatment Upcoming Encounters Date Type Department Care Team (Late st Contact Info) Description 02/21/2024 9:45 EDT Office Visit [facility] Adult Primary Care - [address] 4230[address] Carrington Calderon MD 1 [facility] 1 [place] [phone] 02/27/2024 8:30 EDT Telemedicine [facility] Sleep Program - [address] 415781 Dwight Colbert [address] [place] [phone] 02/29/2024 10:30 EDT Appointment [facility] Radiology Nuclear Medicine and PET - [address] [phone] 02/29/2024 14:30 EDT Appointment [facility] Radiology Nuclear Medicine and PET - [address] 293921 03/01/2024 8:00 EDT Appointment [facility] Radiology Nuclear Medicine and PET - [address] 623181 03/01/2024 9:30 EDT Appointment [facility] Radiology Nuclear Medicine and PET [address] 276051 documented as of this encounter Visit Diagnoses Not on filedocumented in this encounter Care Teams Senior Health Consultant Relationship Specialty Start Date End Date Benita Shafer NP PCP - General 08/22/18 06/17/19 documented as of this encounter
--- OUTSIDE RECORDS SUMMARY | 2024-02-10 01:29 | XMS_ITS | Encounter Summary ---
Author Organization [facility] Address [address] [place] [address] Care Team Providers Care Venetian Blind Maker Name Role Phone None, Provider Primary Care Provider Unavailabl e Reason for Visit * Reason Comments Eye Problem woke yesterday am wi th right eye lid swelling, worsening today, now with blurred vision. denies drainage. Encounter Details Date Type Department Care Team (Late st Contact Info) Description 07/28/2016 20:50 EST - 07/28/2016 22:56 EST Emergency [facility] Emergency Department - Main [address] [address] Fran Barbosa MD [address] [place] [address], Level 1 [place] [address] Emergency, MD Ekaterina Corneal abrasion, [...] complications-E11.9[ICD-10-CM] F17.210 Nicotine dependence, cigarettes, uncomplicated-F17.210[ICD-10-CM] Z79.84 group home (current) use of oral hypoglycemic drugs-Z79.84[ICD-10-CM] Z88.6 [...] sent through Care Everywhere. * CORNEAL SCRATCHES (YAKUT) documented in this encounter Medications at Time [...] Notes * Ann Martínez RN - 07/28/2016 5628 EST Ordered for discharge. Aftercare instructions, follow [...] [facility] - [address] 833[address] Carrington Calderon MD [address] [place] [phone] 02/27/2024 8:30 EDT Telemedicine [facility] Sleep Program - [address] [address] Dwight Colbert [address] [place] [address] 02/29/2024 10:[address] [facility] Radiology Nuclear Medicine and PET - [address] [id number] 02/29/2024 14:[address] [facility] Radiology Nuclear Medicine and PET [address] [phone] 03/01/2024 8:[address] [facility] Radiology Nuclear Medicine and PET - [address] [phone] 03/01/2024 9:[address] [facility] Radiology Nuclear Medicine and PET - [address] [address] documented as of this encounter Visit Diagnoses [...] On Tue07/28/16 at 2245 2255 (Given - [facility] er: Ann Martínez RN) documented in this encounter Care Teams Venetian Blind Maker Relationship Specialty Start Date End Date None, Provider PCP - General 03/08/16 08/21/18 documented as of this encounter
--- OUTSIDE RECORDS SUMMARY | 2024-02-10 01:29 | XMS_ITS | Encounter Summary ---
Author Organization [facility] Address [address] [place] [address] Care Team Providers Care Rn Acute Care Name Role Phone Benita Shafer GUSTAVO Primary Care Provider Reason for Referral * LEAD CARGO MOVER (Routine) - New Request Specialty Diagnoses / Procedures Referred By Kit t Referred To Contact Diagnoses Missed menses Procedures HSPT TUTOR US OB FIRST TRIMESTER TRANSVAGINAL Nohemy Sales MD 111 [facility], Level 4 [place] [address] Referral ID Status Reason Start Date Expiration Date V isits Requested Visits Authorized [id number] New Request 10/19/2018 1 1 Reason for Visit * Reason Onset Date Comments 10/19/2018 Encounter Details Date Type Department Care Team (Late st Contact Info) Description 10/19/2018 Telephone [facility] Obstetrics & Midwifery [address] [address] Mary Regalado RN Social History [...] .Initial Appt Screening Form Best Contact Number: [phone] [facility] Provider: HUGO for Type 2 diabetes LMP/Pt [...] scribed to patient'spharmacy. Scheduled for first trimester HSPT TUTOR US for October 24 at 1:45pm- she [...] Medical Center Adult Primary Care - [address] 549131 Carrington Calderon MD 1 [facility] 1 [place] [phone] 02/27/2024 8:30 EDT Telemedicine [facility] Sleep Program - [address] 531681 Dwight Colbert [address] [place] [address] [phone] 02/29/2024 10:30 EDT Appointment [facility] Radiology Nuclear Medicine and PET - [address] 849861 02/29/2024 14:30 EDT Appointment [facility] Radiology Nuclear Medicine and PET [address] [address] 03/01/2024 8:00 EDT Appointment [facility] Radiology Nuclear Medicine and PET [address] [address] 03/01/2024 9:30 EDT Appointment [facility] Radiology Nuclear Medicine and PET [address] [address] documented as of this encounter Procedures Procedure Name Priority Date/Time Associated Diagnosis Comments HSPT TUTOR US OB FIRST TRIMESTER TRANSVAGINAL Routine 10/24/2018 13:58 EDT Missed menses documented in this encounter Results * HSPT TUTOR US OB FIRST TRIMESTER TRANSVAGINAL (10/24/2018 13:58 [...] Visualized. Embryo: Not visualized. Impression OB transvaginal [id number] 1. Small gestational sac with a yolk [...] Visualized. Embryo: Not visualized. Impression OB transvaginal [id number] 1. Small gestational sac with a yolk [...] SERVICE: 10/24/2018 Nohemy Sales MD IMG US HSPT TUTOR ORDERABLE S documented in this encounter Visit Diagnoses Diagnosis Missed menses- Primary Absence of menstruation documented in this encounter Care Teams Rn Acute Care Relationship Specialty Start Date End Date Benita Shafer NP PCP - General 08/22/18 06/17/19 documented as of this encounter
--- OUTSIDE RECORDS SUMMARY | 2024-02-10 01:29 | XMS_ITS | Encounter Summary ---
Author Organization [facility] Address [address] [place] [address] Care Team Providers Care Radar Engineer Name Role Phone None, Provider Primary Care Provider Unavailabl e Reason for Visit * Reason Comments Threatened Miscarriage 6 weeks , started with brown discharge Cher, saw OB said it could be normal spotting. Tonight started with bright red vaginal bleeding. Problem Encounter Details Date Type Department Care Team (Late st Contact Info) Description 02/24/2017 22:50 EDT - 02/25/2017 3:35 EDT Emergency [facility] Emergency Department - Main [place] [address] [place] [address] Kylah Whitaker PA-C [address] [place] [address], Level 1 [place] [address] Emergency, MD Ekaterina Vaginal bleeding [...] be sent through Care Everywhere. * MISCARRIAGE (LUXEMBOURGER) * VAGINAL BLEEDING (LUXEMBOURGER) documented in this encounter Medications at Time [...] suprapubic, and RLQ). Genitourinary: Genitourinary Comments: Female wheel grinder was present Multiple clots in the vaginal [...] added GLUCOSE, SERUM Final Number for problems [id number] (ED) Final Relevant Data Procedures ED COURSE [...] of 1604. (02:35) Discussed the patient with BABY ATTENDANT. (03:07) Reevaluation. Patient endorsed continued pain but [...] [facility] Adult Primary Care - [address] 698371 Carrington Calderon MD [address] [place] [phone] 02/27/2024 8:30 EDT Telemedicine [facility] Sleep Program - [address] 257241 Dwight Colbert [address] [place] [address] [phone] 02/29/2024 10:30 EDT Appointment [facility] Radiology Nuclear Medicine and PET - [address] [phone] 02/29/2024 14:30 EDT Appointment [facility] Radiology Nuclear Medicine and PET [address] [id number] 03/01/2024 8:00 EDT Appointment [facility] Radiology Nuclear Medicine and PET [address] [phone] 03/01/2024 9:30 EDT Appointment [facility] Radiology Nuclear Medicine and PET [address] [phone] documented as of this encounter Procedures Procedure [...] be added GLUCOSE, SERUM 02/25/2017 2:40 EDT [facility] Number for problems [id number] (ED) 02/25/2017 2:40 EDT [facility] TOPOGRAPHY UNKNOWN / Unknown 02/25/2017 2:45 EDT 02/25/2017 2:46 EDT Kylah Whitaker PA-C HEMATOLOGY & PF4 ORD ERABLES [facility] [address] [place] [id number] * RAD US PELVIS TRANSABDOMINAL AND TRANSVAGINAL (02/25/2017 1:42 EDT) Anatomical Region Laterality Modality Other 02/25/2017 1:42 EDT 02/25/2017 9:29 EDT Narrative 02/25/2017 9:29 EDT RAD US PELVIS TRANSABDOMINAL AND TRANSVAGINAL ??02/25/2017 1:42 AM Clinical History/Comments: vaginal bleeding Comparison: Per patient, ultrasound examination was obtained February 22, 2017 at her robotic maintenance technician's office. This is not available for [...] was obtained February 22, 2017 at her robotic maintenance technician's office. This is not available for [...] agree with the findings. Kylah Whitaker PA-C [facility] US ORDERABLES * (ABNORMAL) GLUCOSE, SERUM (02/25/2017 0:52 EDT) Glucose, Serum 280(H) 70 - 100 mg/dl 02/25/2017 3:22 EDT [facility] BLOOD SPECIMEN / Unknown 02/25/2017 0:52 EDT 02/25/2017 1:11 EDT Kylah Whitaker PA-C CHEMISTRY & BLOOD GA S ORDERABLES [facility] [address] [place] [address] * (ABNORMAL) HEMAGRAM AND DIFFERENTIAL (02/25/2017 0:52 EDT) WBC 18.10(H) 4.0 - 12.4 K/cmm 02/25/2017 1:16 [facility] RBC 4.45 3.86 - 5.04 M/cmm 02/25/2017 1:16 [facility] Hemoglobin 13.9 11.6 - 15.2 gm/dl 02/25/2017 1:16 [facility] HCT 38.1 34.9 - 44.4 % 02/25/2017 1:16 [facility] MCV 86 81 - 98 fl 02/25/2017 1:16 [facility] MCH 31.2 26.7 - 33.3 pg 02/25/2017 1:16 [facility] MCHC 36.5(H) 32.1 - 35.9 gm/dl 02/25/2017 1:16 [facility] RDW-CV 11.9 <14.7 % 02/25/2017 1:16 [facility] RDW-SD 37.2 <50.4 fl 02/25/2017 1:16 [facility] PLT 341 141 - 377 K/cmm 02/25/2017 1:16 [facility] MPV 9.4(L) 9.5 - 12.7 fl 02/25/2017 1:16 [facility] Neutrophils 62.0 % 02/25/2017 1:38 [facility] Lymphocytes 29.0 % 02/25/2017 1:38 [facility] Monocytes 6.0 % 02/25/2017 1:38 [facility] Eosinophils 3.0 % 02/25/2017 1:38 [facility] ABS Neutrophils 11.22(H) 2.20 - 8.85 K/cmm 02/25/2017 1:38 [facility] ABS Lymphs 5.25(H) 1.09 - 3.30 K/cmm 02/25/2017 1:38 EDT [facility] ABS Monocytes 1.09(H) 0.1 - 0.8 K/cmm 02/25/2017 1:38 EDT [facility] ABS Eosinophils 0.54 0.03 - 0.61 K/cmm 02/25/2017 1:38 EDT [facility] Type of Diff: Manual 02/25/2017 1:38 EDT [facility] Blood specimen (specimen) BLOOD SPECIMEN / Unknown 02/25/2017 0:52 EDT 02/25/2017 1:11 EDT Kylah Whitaker PA-C PACKAGES & DNA PROBE ORDERABLES Performing Organization Address [facility] Co de Phone Number [facility] [address] [place] [address] * (ABNORMAL) HCG FOR (02/25/2017 0:52 EDT) Quant Beta HCG, Preg 1,604(H) <5 mIU/ml 02/25/2017 2:06 EDT [facility] Comment: Reference Range: Negative = <5 Indeterminate = 5-25 recommend repeat in 48 hours. Positive = >25 Blood specimen (specimen) BLOOD SPECIMEN / Unknown 02/25/2017 0:52 EDT 02/25/2017 1:11 EDT Kylah Whitaker PA-C CHEMISTRY & BLOOD GA S ORDERABLES Performing Organization Address [facility] Co de Phone Number [facility] [address] [place] [address] documented in this encounter Visit Diagnoses Diagnosis [...] RN) documented in this encounter Care Teams Radar Engineer Relationship Specialty Start Date End Date None, Provider PCP - General 03/08/16 08/21/18 documented as of this encounter
--- OUTSIDE RECORDS SUMMARY | 2024-02-10 01:29 | XMS_ITS | Encounter Summary ---
Author Organization [facility] Address [address] [place] [address] Care Team Providers Care Prefabricated Houses Trimmer Name Role Phone Benita Shafer COLLEGE FOOTBALL COACH Primary Care Provider [phone] Encounter Details Date Type Department Care Team (Late st Contact Info) Description 10/26/2018 Orders Only [facility] OBGYN Services - [facility] [address] [place], [place] 134991 Charu Flynn MD [address] [facility] 4 [place] [address] Social History Tobacco Use Types [...] [facility] Adult Primary Care - [address] 985451 Carrington Calderon MD [address] [place] [address] 1 [place] [phone] 02/27/2024 8:30 EDT Telemedicine [facility] Sleep Program - [address] [place] [address] Dwight Colbert [address] [place] [address] [phone] 02/29/2024 10:30 EDT Appointment [facility] Radiology Nuclear Medicine and PET [address] [address] 02/29/2024 14:30 EDT Appointment [facility] Radiology Nuclear Medicine and PET [address] [address] 03/01/2024 8:00 EDT Appointment [facility] Radiology Nuclear Medicine and PET [address] [id number] 03/01/2024 9:30 EDT Appointment [facility] Radiology Nuclear [place] [address] documented as of this encounter Visit Diagnoses Not on filedocumented in this encounter Care Teams Prefabricated Houses Trimmer Relationship Specialty Start Date End Date Benita Shafer NP PCP - General 08/22/18 06/17/19 documented as of this encounter
--- OUTSIDE RECORDS SUMMARY | 2024-02-10 01:29 | XMS_ITS | Encounter Summary ---
Author Organization [facility] Address [address] [place] [address] Care Team Providers Care Door Paneler Name Role Phone Benita Shafer DREDGE OPERATOR Primary Care Provider [phone] Reason for Visit * Reason Comments Shingles States that she thin ks she is having a shingles flare on face and head, states had outbreak 3 weeks ago in same areas Encounter Details Date Type Department Care Team (Late st Contact Info) Description 08/22/2018 9:08 EDT - 08/22/2018 12:20 EDT Emergency [facility] Emergency Department - [address] [phone] Doris Moreno MD [address] [place] [address], Level [address] [place] [address] Emergency, MD Ekaterina Trigeminal herpes zoster (Primary [...] Type 2 diabetes mellitus without complications-E11.9[ICD-10-CM] Z79.84 MCC (current) use of oral hypoglycemic drugs-Z79.84[ICD-10-CM] Z79.4 MCC (current) use of insulin-Z79.4[ICD-10-CM] F17.210 Nicotine dependence, [...] is very important. Please follow-up with your knockout worker as previously scheduled. Please contact your primary [...] be sent through Care Everywhere. * SHINGLES ([place]ER) * NEUROPATHIC PAIN ([place]) documented in this encounter Medications at Time [...] this encounter ED Notes * Baldemar Beckham, MARCELO - 08/22/2018 1205 EDT POCT Glucose 234 * Doris Moreno MD, MD - 08/22/2018 1146 EDT This patient received an evaluation and medical screening exam for emergent medical conditions at the [facility] on 08/22/2018 Scribe attestation: This documentation [...] Value Status Glucose, Fingerstick 234 (*) Final Table Keeper ID [id number] Final POCT GLUCOSE Procedures Procedures ED course/Medical [...] Visit [facility] Adult Primary Care - [address] 100[address] Carrington Calderon MD [address] [phone] 02/27/2024 8:30 EDT Telemedicine [facility] Sleep Program - [address] [phone] Dwight Colbert [address] [place] [address] [phone] 02/29/2024 10:30 EDT Appointment [facility] Radiology Nuclear Medicine and PET [address] [phone] 02/29/2024 14:30 EDT Appointment [facility] Radiology Nuclear Medicine and PET [address] [phone] 03/01/2024 8:00 EDT Appointment [facility] Radiology Nuclear Medicine and PET [address] [id number] 03/01/2024 9:30 EDT Appointment [facility] Radiology Nuclear Medicine and PET [address] [phone] documented as of this encounter Procedures Procedure Name Priority Date/Time Associated Diagnosis Comments GLUCOSE, GLUCOMETER Routine 08/22/2018 1 2:04 EDT documented in this encounter Results * (ABNORMAL) GLUCOSE, GLUCOMETER (08/22/2018 12:04 EDT) Glucose, Fingerstick 234(H) 70 - 100 mg/dl 08/22/2018 12:06 EDT [facility] Table Keeper ID [id number] 08/22/2018 12:06 EDT [facility] Comment:Test Performed by [facility] BLOOD SPECIMEN / Unknown 08/22/2018 12:04 EDT 08/22/2018 12:06 EDT Provider Unknown CHEMISTRY & BLOOD GA S ORDERABLES [facility] [address] [place] [address] documented in this encounter Visit Diagnoses Diagnosis [...] 08/22/2018 documented in this encounter Care Teams Door Paneler Relationship Specialty Start Date End Date Benita Shafer NP PCP - General 08/22/18 06/17/19 documented as of this encounter
--- OUTSIDE RECORDS SUMMARY | 2024-02-10 01:29 | XMS_ITS | Encounter Summary ---
Author Organization [facility] Address [address] [place] [address] Care Team Providers Care Failure Analysis Engineer Name Role Phone None, Provider Primary [...] 20:10 EDT - 09/28/2016 21:29 EDT Emergency [facility] Emergency Department - Main [address] [address] Benita Sol MD [address] [place] [address], Level [address] [place] [phone] Emergency, MD Ekaterina Acute bilateral low back [...] Care Everywhere. * LUMBAR PAIN: ACUTE: EXERCISES (FILIPINO) documented in this encounter Medications at Time [...] Visit [facility] Adult Primary Care - [address] [address] Carrington Calderon MD [address] [phone] 02/27/2024 8:30 EDT Telemedicine [facility] Sleep Program - [address] [address] Dwight Colbert [address] [place] [phone] 02/29/2024 10:30 EDT Appointment [facility] Radiology Nuclear Medicine and PET - [address] [phone] 02/29/2024 14:30 EDT Appointment [facility] Radiology Nuclear Medicine and PET - [address] [phone] 03/01/2024 8:00 EDT Appointment [facility] Radiology Nuclear Medicine and PET - [address] [phone] 03/01/2024 9:30 EDT Appointment [facility] Radiology Nuclear Medicine and PET - [address] [address] documented as of this encounter Visit Diagnoses [...] back) documented in this encounter Care Teams Failure Analysis Engineer Relationship Specialty Start Date End Date None, Provider PCP - General 03/08/16 08/21/18 documented as of this encounter
--- OUTSIDE RECORDS SUMMARY | 2024-02-10 01:29 | XMS_ITS | Encounter Summary ---
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) [...] [facility] Care - [address] [phone] Carrington Calderon MD 1 [facility] Level 1 [place] [phone] 02/27/2024 8:30 EDT Telemedicine [facility] Sleep Program - [address] [place] [address] Dwight Colbert [address] [place] [address] 02/29/2024 10:30 EDT Appointment [facility] Radiology Nuclear Medicine and PET - [address] [address] 02/29/2024 14:30 EDT Appointment [facility] Radiology Nuclear Medicine and PET - [address] [address] 03/01/2024 8:00 EDT Appointment [facility] Radiology Nuclear Medicine and PET [address] [phone] 03/01/2024 9:30 EDT Appointment [facility] Radiology Nuclear Medicine and PET [address] [address] documented as of this encounter Procedures Procedure [...] 10 - 26 mg/dl 10/26/2018 13:09 EDT [facility] Blood specimen (specimen) BLOOD SPECIMEN / Unknown 10/26/2018 12:28 EDT 10/26/2018 12:42 EDT Charu Flynn MD CHEMISTRY & BLOO D GAS ORDERABLES Performing Organization Address City/[facility]/ZIP Co de Phone Number [facility] [address] [place] [address] * (ABNORMAL) CREATININE (10/26/2018 12:28 EDT) Creatinine 0.44(L) 0.52 - 1.04 mg/dl 10/26/2018 13:09 EDT [facility] GFR, Calculated 133 >60 ml/min/1.7 3m2 10/26/2018 13:09 EDT [facility] Comment: eGFR calculated using CKD-EPI equation for non Americans. Multiply eGFR by 1.16 for Americans. Blood specimen (specimen) BLOOD SPECIMEN / Unknown 10/26/2018 12:28 EDT 10/26/2018 12:42 EDT Charu Flynn MD CHEMISTRY & BLOO D GAS ORDERABLES Performing Organization Address City/[facility]/ZIP Co de Phone Number [facility] [address] [place] [address] * ALT (10/26/2018 12:28 EDT) ALT 22 <53 U/L 10/26/2018 13:09 EDT [facility] Blood specimen (specimen) BLOOD SPECIMEN / Unknown 10/26/2018 12:28 EDT 10/26/2018 12:42 EDT Charu Flynn MD CHEMISTRY & BLOO D GAS ORDERABLES Performing Organization Address City/[facility]/ZIP Co de Phone Number [facility] [address] [place] [address] * (ABNORMAL) AST (10/26/2018 12:28 EDT) AST 14(L) 15 - 46 U/L 10/26/2018 13:09 EDT [facility] Blood specimen (specimen) BLOOD SPECIMEN / Unknown 10/26/2018 12:28 EDT 10/26/2018 12:42 EDT Charu Flnyn MD CHEMISTRY & BLOO D GAS ORDERABLES [facility] [address] [place] [address] * COMPLETE BLOOD COUNT (10/26/2018 12:28 EDT) WBC 11.89 4.0 - 12.4 K/cmm 10/26/2018 13:06 EDT [facility] RBC 4.82 3.86 - 5.04 M/cmm 10/26/2018 13:06 [facility] Hemoglobin 15.0 11.6 - 15.2 gm/dl 10/26/2018 13:06 [facility] HCT 42.5 34.9 - 44.4 % 10/26/2018 13:06 [facility] MCV 88 81 - 98 fl 10/26/2018 13:06 T [facility] MCH 31.1 26.7 - 33.3 pg 10/26/2018 13:06 [facility] MCHC 35.3 32.1 - 35.9 gm/dl 10/26/2018 13:06 [facility] RDW-CV 11.9 <14.7 % 10/26/2018 13:06 [facility] RDW-SD 38.2 <50.4 fl 10/26/2018 13:06 [facility] PLT 358 141 - 377 K/cmm 10/26/2018 13:06 [facility] MPV 10.0 9.5 - 12.7 fl 10/26/2018 13:06 [facility] Blood specimen (specimen) BLOOD SPECIMEN / Unknown 10/26/2018 12:28 EDT 10/26/2018 12:42 EDT Charu Flynn MD HEMATOLOGY & PF4 ORDERABLES Performing Organization Address City/[facility]/ZIP Co de Phone Number [facility] [address] [place] [address] documented in this encounter Visit Diagnoses Diagnosis 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
--- OUTSIDE RECORDS SUMMARY | 2024-02-10 01:29 | XMS_ITS | Encounter Summary ---
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 Type 2 diabetes mellitus without complication, with long-term current use of insulin ([facility]) Abnormal human chorionic gonadotropin (hCG) Charu Flynn MD 111 [facility], [facility] 4 [place] [address] [facility] Ep4 Ob/Mfm [address] [place] [address] Referral ID Status Reason Start Date Expiration Date V isits Requested Visits Authorized [id number] Closed Specialty Services Required 10/26/2018 1 1 [...] complication, with long-term current use of insulin ([facility]) Abnormal human chorionic gonadotropin (hCG) 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 Charu Flynn MD 111 [facility], [facility], Level [address] [place] [address] [facility] Mp4 Edis [address] [place] [address] Referral ID Status Reason Start Date Expiration Date Visits Requested Visits Authorized [id number] Specialty Report Received Specialty Services Required 10/26/2018 [...] Info) Description 10/26/2018 11:00 EDT Nurse Only [facility] - [address] [address] Unknown, Provider, Nurse, Obgyn Injections 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 She will go tothe lab now [...] loss, as well as lab hours and ELECTRONIC PARTS DESIGNER triage phone number. Method: Handout and Verbal [...] Office Visit [facility] - [address] [phone] Carrington Calderon MD [address] [place] [phone] 02/27/2024 8:30 EDT Telemedicine [facility] - [address] [place] [address] Dwight Colbert [address] [place], [place] [address] 02/29/2024 10:30 EDT Appointment [facility] Radiology Nuclear Medicine and PET - [address] [id number] 02/29/2024 14:30 EDT Appointment [facility] Radiology Nuclear Medicine and PET - [address] [id number] 03/01/2024 8:00 EDT Appointment [facility] Radiology Nuclear Medicine and PET - [address] [phone] 03/01/2024 9:30 EDT Appointment [facility] Radiology Nuclear Medicine and PET [address] [phone] Scheduled Referrals Name Type Priority Associated Diagnoses Orde r Schedule AMB CONS/FOLLOW UP INFERTILITY Outpatient Referral Routine Recurrent loss Type 2 diabetes mellitus without complication, with long-term current use of insulin ([facility]) Abnormal human chorionic gonadotropin (hCG) 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 Ordered: 10/26/2018 AMB CONS/FOLLOW UP MATERNAL MEDICINE Outpatient Referral Routine 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 Positive = >25 The results of this assay can be falsely lowered due to the consumption of Biotin. Blood specimen (specimen) BLOOD SPECIMEN / Unknown 10/29/2018 9:20 EDT 10/29/2018 9:38 EDT Charu Flynn MD CHEMISTRY & BLOO D GAS ORDERABLES Performing Organization Address City/[facility]/ZIP Co de Phone Number [facility] [address] [place] [address] * COMPLETE BLOOD COUNT (10/26/2018 12:28 EDT) WBC 11.89 4.0 - 12.4 K/cmm 10/26/2018 13:06 EDT [facility] RBC 4.82 3.86 - 5.04 M/cmm 10/26/2018 13:06 T [facility] Hemoglobin 15.0 11.6 - 15.2 gm/dl 10/26/2018 13:06 T [facility] HCT 42.5 34.9 - 44.4 % 10/26/2018 13:06 [facility] MCV 88 81 - 98 fl 10/26/2018 13:06 EDT [facility] MCH 31.1 26.7 - 33.3 pg 10/26/2018 13:06 T [facility] MCHC 35.3 32.1 - 35.9 gm/dl 10/26/2018 13:06 [facility] RDW-CV 11.9 <14.7 % 10/26/2018 13:06 T [facility] RDW-SD 38.2 <50.4 fl 10/26/2018 13:06 [facility] PLT 358 141 - 377 K/cmm 10/26/2018 13:06 T [facility] MPV 10.0 9.5 - 12.7 fl 10/26/2018 13:06 [facility] Blood specimen (specimen) BLOOD SPECIMEN / Unknown 10/26/2018 12:28 EDT 10/26/2018 12:42 EDT Charu Flynn MD HEMATOLOGY & PF4 ORDERABLES Performing Organization Address City/[facility]/ZIP Co de Phone Number [facility] [address] [place] [address] * (ABNORMAL) AST (10/26/2018 12:28 EDT) AST 14(L) 15 - 46 U/L 10/26/2018 13:09 EDT [facility] Blood specimen (specimen) BLOOD SPECIMEN / Unknown 10/26/2018 12:28 EDT 10/26/2018 12:42 EDT Charu Flynn MD CHEMISTRY & BLOO D GAS ORDERABLES Performing Organization Address City/[facility] Co de Phone Number [facility] [address] [place] [address] * ALT (10/26/2018 12:28 EDT) ALT 22 <53 U/L 10/26/2018 13:09 EDT [facility] Blood specimen (specimen) BLOOD SPECIMEN / Unknown 10/26/2018 12:28 EDT 10/26/2018 12:42 EDT Charu Flynn MD CHEMISTRY & BLOO D GAS ORDERABLES Performing Organization Address [facility] de Phone Number [facility] [address] [place] [address] * (ABNORMAL) CREATININE (10/26/2018 12:28 EDT) Creatinine 0.44(L) 0.52 - 1.04 mg/dl 10/26/2018 13:09 EDT [facility] GFR, Calculated 133 >60 ml/min/1.7 3m2 10/26/2018 13:09 EDT [facility] Comment: eGFR calculated using CKD-EPI equation for non Americans. Multiply eGFR by 1.16 for Americans. Blood specimen (specimen) BLOOD SPECIMEN / Unknown 10/26/2018 12:28 EDT 10/26/2018 12:42 EDT Charu Flynn MD CHEMISTRY & BLOO D GAS ORDERABLES Performing Organization Address [facility] Co de Phone Number [facility] [address] [place] [address] * BUN (10/26/2018 12:28 EDT) BUN 11 10 - 26 mg/dl 10/26/2018 13:09 EDT [facility] Blood specimen (specimen) BLOOD SPECIMEN / Unknown 10/26/2018 12:28 EDT 10/26/2018 12:42 EDT Charu Flynn MD CHEMISTRY & BLOO D GAS ORDERABLES [facility] [address] [place] [address] documented in this encounter Visit Diagnoses Diagnosis 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
--- OUTSIDE RECORDS SUMMARY | 2024-02-10 01:29 | XMS_ITS | Encounter Summary ---
Author Organization [facility] Address [address] [place] [address] Care Team Providers Care Damper Maker Name Role Phone None, Provider Primary Care Provider Unavailabl e Reason for Visit * Reason Onset Date Comments Follow-up 07/20/2016 Results 07/20/2016 Encounter Details Date Type Department Care Team (Late st Contact Info) Description 07/20/2016 Telephone [facility] Urgent Care - [address] [phone] Moy Marquez MD [address] [place] [phone] Follow-up; Results Social History Tobacco Use Types [...] Encounter - Moy Marquez MD - 07/24/2016 0052 EST Called and spoke to patient follow up with recent visit. She notes that cyst has improved. I discussed that her hemoglobin A1c is quite elevated at 11.2, indicating that she does have poorlycontrolled diabetes. 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 She will likely need further agents. She does have a follow-up appointment in three days with the [facility] to establish care. I strongly encouraged [...] [facility] - [address] [phone] Carrington Calderon MD [address] [phone] 02/27/2024 8:30 EDT Telemedicine [facility] Sleep Program - [address] [phone] Dwight Colbert [address] [place] [phone] 02/29/2024 10:30 EDT Appointment [facility] Radiology Nuclear Medicine and PET - [address] [phone] 02/29/2024 14:30 EDT Appointment [facility] Radiology Nuclear Medicine and PET - [address] [phone] 03/01/2024 8:00 EDT Appointment [facility] Radiology Nuclear Medicine and PET - [address] [phone] 03/01/2024 9:30 EDT Appointment [facility] Radiology Nuclear Medicine and PET - [address] [phone] documented as of this encounter Visit Diagnoses Not on filedocumented in this encounter Care Teams Damper Maker Relationship Specialty Start Date End Date None, Provider PCP - General 03/08/16 08/21/18 documented as of this encounter
--- OUTSIDE RECORDS SUMMARY | 2024-02-10 01:29 | XMS_ITS | Encounter Summary ---
Author Organization [facility] Address [address] [place] [address] Care Team Providers Care Dip Unit Operator Name Role Phone Benita Shafer RADIOLOGY SPECIALIST Primary Care Provider Encounter Details Date Type Department Care Team (Late st Contact Info) Description 10/24/2018 Phlebotomy Only [facility] - [address] [address] Customs Compliance Specialist, Outpatient Complication of in first trimester (Primary [...] [facility] - [address] [phone] Carrington Calderon MD 1 [facility] Level 1 [place] [phone] 02/27/2024 8:30 EDT Telemedicine [facility] Sleep Program - [address] [place] [address] [place] [address] Dwight Colbert [address] [place], [place] [address] 02/29/2024 10:30 EDT Appointment [facility] Radiology Nuclear Medicine and PET - [address] [address] 02/29/2024 14:30 EDT Appointment [facility] Radiology Nuclear Medicine and PET - [address] [id number] 03/01/2024 8:00 EDT Appointment [facility] Radiology Nuclear Medicine and PET [address] [phone] 03/01/2024 9:30 EDT Appointment [facility] Radiology Nuclear [facility] and PET [address] [address] documented as of this encounter Procedures Procedure Name Priority Date/Time Associated Diagnosis Comments QUANT BETA HCG, Routine 10/24/2018 14:42 EDT Complication of in first trimester documented in this encounter Results * (ABNORMAL) QUANT BETA HCG, (10/24/2018 14:42 EDT) Quant Beta HCG, Preg 1,286(H) <5 mIU/ml 10/24/2018 15:40 EDT [facility] Comment: Reference Range: Negative = <5 Indeterminate = 5-25 recommend repeat in 48 hours. Positive = >25 The results of this assay can be falsely lowered due to the consumption of Biotin. Blood specimen (specimen) BLOOD SPECIMEN / Unknown 10/24/2018 14:42 EDT 10/24/2018 14:54 EDT Ana Coronado MD CHEMISTRY & BLOOD GAS ORDERABLES [facility] [address] [place] [address] documented in this encounter Visit Diagnoses Diagnosis Complication of in first trimester- Primary documented in this encounter Care Teams Dip Unit Operator Relationship Specialty Start Date End Date Benita Shafer NP PCP - General 08/22/18 06/17/19 documented as of this encounter
--- OUTSIDE RECORDS SUMMARY | 2024-02-10 01:29 | XMS_ITS | Encounter Summary ---
Author Organization [facility] Address [address] [place] [address] Care Team Providers Care Accredited Farm Manager Name Role Phone Benita Shafer BRAKE REPAIR MECHANIC Primary Care Provider Encounter Details Date Type Department Care Team (Late st Contact Info) Description 10/24/2018 Orders Only [facility] OBGYN Services - [address] [phone] Ana Coronado MD 111 [facility] 4 [place] [address] Complication of in first trimester [...] Visit [facility] Adult Primary Care - [address] [phone] Carrington Calderon MD 1 [facility] 1 [place] [phone] 02/27/2024 8:30 EDT Telemedicine [facility] Sleep Program - [address] [place] [address] [place] [address] Colbert Dwight [address] [place] [address] 02/29/2024 10:30 EDT Appointment [facility] Radiology Nuclear Medicine and PET - [place] [phone] 02/29/2024 14:30 EDT Appointment [facility] Radiology Nuclear Medicine and PET [address] [phone] 03/01/2024 8:00 EDT Appointment [facility] Radiology Nuclear Medicine and PET [address] [phone] 03/01/2024 9:30 EDT Appointment [facility] Radiology Nuclear [place] [address] documented as of this encounter Results * (ABNORMAL) QUANT BETA HCG, (10/24/2018 14:42 EDT) Pathologist [facility] Quant Beta HCG, Preg 1,286(H) <5 mIU/ml 10/24/2018 15:40 EDT [facility] Comment: Reference Range: Negative = <5 Indeterminate = 5-25 recommend repeat in 48 hours. Positive = >25 The results of this assay can be falsely lowered due to the consumption of Biotin. Blood specimen (specimen) BLOOD SPECIMEN / Unknown 10/24/2018 14:42 EDT 10/24/2018 14:54 EDT Ana Coronado MD CHEMISTRY & BLOOD GAS ORDERABLES [facility] [address] [place] [address] documented in this encounter Visit Diagnoses Diagnosis Complication of in first trimester- Primary documented in this encounter Care Teams Accredited Farm Manager Relationship Specialty Start Date End Date Benita Shafer NP PCP - General 08/22/18 06/17/19 documented as of this encounter
--- OUTSIDE RECORDS SUMMARY | 2024-02-10 01:29 | XMS_ITS | Encounter Summary ---
Author Organization [facility] Address [address] [place] [address] Care Team Providers Care Overnight Caregiver Name Role Phone Benita Shafer GUSTAVO Primary Care Provider [phone] Reason for Visit * Reason Comments Eye Problem Left eye lid pain an d swelling, onset Tuesday fiordaliza. recent shingle in that eye Encounter Details Date Type Department Care Team (Latest Contact Info) Description 09/06/2018 8:37 EDT - 09/06/2018 10:13 EDT Hospital Encounter [facility] Urgent Care - [address] [address] Fran Blanco MD 0 [place] [address] Unknown, ProviderMD Hordeolum externum of left upper [...] Attempt[facility] to [facility] [...] beginning of August. She was seen in [place] and had follow-up with the newspaper columnist, Dr. Jerad Cruz. She reports that her symptoms completely resolved with the initial treatment. However around August 22 she had a rec urrence of the symptoms and was seen in the [facility] ED. She was thought to have [...] 09/04/201515, 08/19. Followed by Dr. López/[facility] in [facility] ??? Family history of rheumatoid arthritis 09/04/2015 [...] approx 2012 - had SI, treated at [place]. Marijuana prn to help with stress/anxiety sx. [...] [facility] [address] [phone] Carrington Calderon MD [address] [phone] 02/27/2024 8:30 EDT Telemedicine [facility] Sleep Program - [address] [phone] Dwight Colbert [address] [place] [phone] 02/29/2024 10:30 EDT Appointment [facility] Radiology Nuclear Medicine and PET - [address] [phone] 02/29/2024 14:30 EDT Appointment [facility] Radiology Nuclear Medicine and PET [address] [phone] 03/01/2024 8:00 EDT Appointment [facility] Radiology Nuclear Medicine and PET - [address] [phone] 03/01/2024 9:30 EDT Appointment [facility] Radiology Nuclear Medicine and PET [address] [phone] documented as of this encounter Visit Diagnoses Diagnosis Hordeolum externum of left upper eyelid- Primary Hordeolum externum Herpes zoster with ophthalmic complication, unspecified herpes zoster eye disease documented in this encounter Orders Nursing Count Last Ordered Date First Orde red Date VISUAL ACUITY SCREENING 1 09/06/2018 documented in this encounter Care Teams Overnight Caregiver Relationship Specialty Start Date End Date Benita Shafer NP PCP - General 08/22/18 06/17/19 documented as of this encounter
--- OUTSIDE RECORDS SUMMARY | 2024-02-10 01:29 | XMS_ITS | Encounter Summary ---
Author Organization [facility] Address [address] [place] [address] Care Team Providers Care Occupational Medicine Officer Name Role Phone None, Provider Primary Care Provider Unavailabl e Reason for Visit * Reason Comments Cough Sent from [facility], for cough, fever, sore throat x three day, cough in dry, c/o chest pain and headache due to the cough. [id number] lungs sound diminished t/o Encounter Details Date Type Department Care Team (Late st Contact Info) Description 03/08/2016 17:09 EDT - 03/08/2016 23:11 EDT Emergency [facility] Emergency Department - [address] [phone] Broderick Foster MD 111 [facility], Level 1 [place] [phone] Emergency, MD Ekaterina Acute bronchitis, unspecified organism (Primary Dx); Type 2 diabetes mellitus not at goal ([facility]) Discharge Disposition: Home or Self [...] Use Robitussin-DM cough syrup as needed. Call [facility] primary care, [phone], to arrange for an appointment as soon [...] gait * Nini Schultz RN - 03/08/2016 5749 EDT Blood drawn via butterfly needle per [...] HR-120, BP-90/50, NOTE TAKEN BY DR. FOSTER ([facility]) * Catherine Osullivan - 03/08/2016 1720 EDT TCALL: CRISTY TALBOT, 85, 30YO FEMALE, DMII, NO MEDS X4 MONTHS, NOW RESP. INFECTION, WBC 21,000 GLUC. 273, CXR NEG., HR-120, BP-90/50, NOTE TAKEN BY DR. FOSTER ([facility]) * Catherine Osullivan - 03/08/2016 1720 EDT TCALL: CRISTY TALBOT, 85, 30YO FEMALE, DMII, NO MEDS X4 MONTHS, NOW RESP. INFECTION, WBC 21,000 GLUC. 273, CXR NEG., HR-120, BP-90/50, NOTE TAKEN BY DR. FOSTER ([facility]) * Broderick Foster MD - 03/08/2016 1716 EDT DOS: 03/08/2016 Chief Complaint Patient presents with ??? Cough Sent from [facility], for cough, fever, sore throat x [...] diarrhea, and constipation. She reports going to [employer] who sent her here due to elevated [...] Value Status Glucose, Fingerstick 163 (*) Final Edger Machine Setter ID [id number] Final GLUCOSE, GLUCOMETER - Abnormal Glucose, Fingerstick 239 (*) Final Edger Machine Setter ID [id number] Final BACTERIAL CULTURE, BLOOD BACTERIAL CULTURE, BLOOD [...] Pt was instruction to follow up at [facility]. Prior to discharge usual [...] [facility] Adult Primary Care - [address] [phone] Carrington Calderon MD [address] [place] [address] Level 1 [place] [phone] 02/27/2024 8:30 EDT Telemedicine [facility] Sleep Program - [address] [place] [address] Dwight Colbert [address] [place] [address] 02/29/2024 10:30 EDT Appointment [facility] Radiology Nuclear Medicine and PET - [address] [address] 02/29/2024 14:30 EDT Appointment [facility] Radiology Nuclear Medicine and PET - [address] [phone] 03/01/2024 8:00 EDT Appointment [facility] Radiology Nuclear Medicine and PET [address] [phone] 03/01/2024 9:30 EDT Appointment [facility] Radiology Nuclear Medicine and PET [address] [address] documented as of this encounter Procedures Procedure Name Priority Date/Time Associated Diagnosis Comments GLUCOSE, GLUCOMETER Routine 03/08/2016 2 1:11 EDT BACTERIAL CULTURE, BLOOD Routine 03/08/2016 18:47 EDT BACTERIAL CULTURE, BLOOD Routine 03/08/2016 18:47 EDT GLUCOSE, GLUCOMETER Routine 03/08/2016 1 7:24 EDT documented in this encounter Results * (ABNORMAL) GLUCOSE, GLUCOMETER (03/08/2016 21:11 EDT) Glucose, Fingerstick 239(H) 70 - 100 mg/dl 03/08/2016 21:12 EDT [facility] Edger Machine Setter ID [id number] 03/08/2016 21:12 EDT [facility] Comment:[facility] BLOOD SPECIMEN / Unknown 03/08/2016 21:11 EDT 03/08/2016 21:12 EDT Provider Unknown CHEMISTRY & BLOOD GA S ORDERABLES Performing Organization Address [facility]/ZIP Co de Phone Number [facility] [address] [place] [address] * BACTERIAL CULTURE, BLOOD (03/08/2016 18:47 EDT) Result No growth 03/13/2016 8:26 EDT [facility] Blood specimen (specimen) BLOOD SPECIMEN / Unknown 03/08/2016 18:47 EDT 03/08/2016 20:07 EDT Comment:Left~Antecubital Broderick Foster MD MICROBIOLOGY - GENE RAL ORDERABLES Performing Organization Address [facility] Co de Phone Number [facility] [address] [place] [address] * BACTERIAL CULTURE, BLOOD (03/08/2016 18:47 EDT) Result No growth 03/13/2016 8:26 EDT [facility] Blood specimen (specimen) BLOOD SPECIMEN / Unknown 03/08/2016 18:47 EDT 03/08/2016 20:05 EDT Comment:Right~Antecubital Broderick Foster MD MICROBIOLOGY - GENE RAL ORDERABLES Performing Organization Address [facility] Co de Phone Number [facility] [address] [place] [address] * (ABNORMAL) GLUCOSE, GLUCOMETER (03/08/2016 17:24 EDT) Glucose, Fingerstick 163(H) 70 - 100 mg/dl 03/08/2016 17:26 EDT [facility] Edger Machine Setter ID [id number] 03/08/2016 17:26 EDT [facility] Comment:[facility] BLOOD SPECIMEN / Unknown 03/08/2016 17:24 EDT 03/08/2016 17:26 EDT Provider Unknown CHEMISTRY & BLOOD GA S ORDERABLES [facility] [address] [place] [address] documented in this encounter Visit Diagnoses Diagnosis Acute bronchitis, unspecified organism- Primary Type 2 diabetes mellitus not at goal ([facility]) Type II or unspecified type diabetes [...] 2145, STAT 2206 (Given - Provid er: Nnii Schultz RN) HYDROmorphone (PF) (DILAUDID) 1 mg/mL [...] 03/08/2016 documented in this encounter Care Teams Occupational Medicine Officer Relationship Specialty Start Date End Date None, Provider PCP - General 03/08/16 08/21/18 documented as of this encounter
--- OUTSIDE RECORDS SUMMARY | 2024-02-10 01:29 | XMS_ITS | Encounter Summary ---
Author Organization [facility] Address [address] [place] [address] Care Team Providers Care Claims Account Specialist Name Role Phone Benita Shafer GUSTAVO Primary Care Provider [phone] Reason for Visit * Reason Comments Problem Encounter Details Date Type Department Care Team (Late st Contact Info) Description 10/24/2018 13:00 EDT Initial consult [facility] Center OBGYN Services - [address] 100691 Ana Coronado MD 111 [facility], Level 4 [place] [address] Complication of in first trimester [...] encounter Progress Notes * Ana Coronado MD, MD - 10/24/2018 1300 EDT S: Patient is [...] all of her future care here at [facility]. Is planning to see the maternal- medicine doctors for her . O: WELL DRILL OPERATOR ROTARY DRILL US OB FIRST TRIMESTER TRANSVAGINAL Indication Early [...] Visualized. Embryo: Not visualized. Impression OB transvaginal [id number] 1. Small gestational sac with a yolk [...] she was told. I spent 30 minutes [id number] with the patient of which more than 50% of this time was spent counseling her about above documented issues and discussion. documented in this encounter Plan of Treatment Upcoming Encounters Date Type Department Care Team (Late st Contact Info) Description 02/21/2024 9:45 EDT Office Visit [facility] Adult Primary Care [address] [address] Carrington Calderon MD [address] [place] [address] 1 [place] [address] 02/27/2024 8:30 EDT Telemedicine [facility] Sleep Program - [address] [address] Colbert Dwight [address] [place] [address] 02/29/2024 10:30 EDT [facility]ointment [facility] Radiology Nuclear Medicine and PET - [address] [address] 02/29/2024 14:30 EDT Appointment [facility] Radiology Nuclear Medicine and PET [address] [phone] 03/01/2024 8:00 EDT Appointment [facility] Radiology Nuclear Medicine and PET [address] [address] 03/01/2024 9:30 EDT Appointment [facility] Radiology Nuclear Medicine and PET [address] [address] documented as of this encounter Visit Diagnoses Diagnosis Complication of in first trimester- Primary documented in this encounter Care Teams Claims Account Specialist Relationship Specialty Start Date End Date Benita Shafer NP PCP - General 08/22/18 06/17/19 documented as of this encounter
--- OUTSIDE RECORDS SUMMARY | 2024-02-10 01:29 | XMS_ITS | Encounter Summary ---
Author Organization [facility] Address [address] [place] [address] Care Team Providers Care Cnc Operator Machinist Name Role Phone Benita Shafer GUSTAVO Primary Care Provider [phone] Encounter Details Date Type Department Care Team (Late st Contact Info) Description 10/24/2018 14:34 EDT - 10/24/2018 23:59 EDT Hospital Encounter [facility] [place] [address] [place] [address] Ana Coronado MD 111 [facility], Level 4 [place] [address] Discharge Disposition: Auto Discharge Social [...] Visit [facility] Care - [address] 780331 Carrington Calderon MD 1 [facility] 1 [place] [phone] 02/27/2024 8:30 EDT Tele[facility]icine [facility] Sleep Program - [address] [phone] Dwight Colbert [address] [place] [phone] 02/29/2024 10:30 EDT Appointment [facility] Center Radiology Nuclear Medicine and PET - [address] [phone] 02/29/2024 14:30 EDT Appointment [facility] Center Radiology Nuclear Medicine and PET - [address] [phone] 03/01/2024 8:00 EDT Appointment [facility] Radiology Nuclear Medicine and PET - [address] [address]15571 03/01/2024 9:30 EDT Appointment [facility] Radiology Nuclear Medicine and PET [address] [phone] documented as of this encounter Visit Diagnoses Not on filedocumented in this encounter Care Teams Cnc Operator Machinist Relationship Specialty Start Date End Date Benita Shafer NP PCP - General 08/22/18 06/17/19 documented as of this encounter
--- OUTSIDE RECORDS SUMMARY | 2024-02-10 01:29 | XMS_ITS | Encounter Summary ---
Author Organization [facility] Address [address] [place] [address] Care Team Providers Care Hotel Yardperson Name Role Phone Benita Shafer GUSTAVO Primary Care Provider [phone] Reason for Visit * Reason Onset Date Comments Results 10/24/2018 Encounter Details Date Type Department Care Team (Late st Contact Info) Description 10/24/2018 Telephone [facility] OBGYN Services - [address] [phone] Ana Coronado MD 111 [facility], Level 4 [place] [address] Results Social History Tobacco Use [...] - Ana Coronado MD, MD - 10/24/2018 9747 EDT Patient called with hCG level and [...] Office Visit [facility] - [address] [phone] Carrington Calderon MD [address] [phone] 02/27/2024 8:30 EDT Telemedicine [facility] Sleep Program - [address] [phone] Dwight Colbert [address] [place] [address] 02/29/2024 10:30 EDT Appointment [facility] Radiology Nuclear Medicine and PET [address] [phone] 02/29/2024 14:30 EDT Appointment [facility] Radiology Nuclear Medicine and PET [address] [phone] 03/01/2024 8:00 EDT Appointment [facility] Radiology Nuclear Medicine and PET [address] [phone] 03/01/2024 9:30 EDT Appointment [facility] Radiology Nuclear Medicine and PET [address] [phone] documented as of this encounter Results * (ABNORMAL) QUANT BETA HCG, (10/26/2018 8:48 EDT) Quant Beta HCG, Preg 1,531(H) <5 mIU/ml 10/26/2018 9:52 EDT [facility] Comment: Reference Range: Negative = <5 Indeterminate = 5-25 recommend repeat in 48 hours. Positive = >25 The results of this assay can be falsely lowered due to the consumption of Biotin. Blood specimen (specimen) BLOOD SPECIMEN / Unknown 10/26/2018 8:48 EDT 10/26/2018 9:00 EDT Ana Coronado MD CHEMISTRY & BLOOD GAS ORDERABLES [facility] [address] [place] [address] documented in this encounter Visit Diagnoses Diagnosis Complication of in first trimester- Primary documented in this encounter Care Teams Hotel Yardperson Relationship Specialty Start Date End Date Benita Shafer NP PCP - General 08/22/18 06/17/19 documented as of this encounter
--- OUTSIDE RECORDS SUMMARY | 2024-02-10 01:29 | XMS_ITS | Encounter Summary ---
Author Organization [facility] Address [address] [place] [address] Care Team Providers Care Virtual Assistant Name Role Phone None, Provider Primary Care Provider Unavailabl e Reason for Visit * Reason Onset Date Comments Other 07/30/2016 Encounter Details Date Type Department Care Team (Late st Contact Info) Description 07/30/2016 Telephone [facility] Ophthalmology - [facility] [place] [facility] [address] [place], [place] [phone] Broderick Schwartz MD 111 [facility], Level 5 [place] [address] Other Social History Tobacco Use [...] Encounter - Catherine Dhillon, MARCELO - 07/30/2016 2444 EST Tried one more time, still no go. Placed letter in mail today. 5229 Called pt. She states if fax will [...] and needs a letter faxed to work: [phone]. Just needs to state she had an appointment here today with Dr Schwartz @ 12:30. documented in this encounter Plan of Treatment Upcoming Encounters Date Type Department Care Team (Late st Contact Info) Description 02/21/2024 9:45 EDT Office Visit [facility] Adult Primary Care - [address] [phone] Carrington Calderon MD [address] [phone] 02/27/2024 8:30 EDT Telemedicine [facility] Sleep Program - [address] 055201 Dwight Colbert [address] [place] [phone] 02/29/2024 10:30 EDT Appointment [facility] Radiology Nuclear Medicine and PET - [address] [phone] 02/29/2024 14:30 EDT Appointment [facility] Radiology Nuclear Medicine and PET - [address] [phone] 03/01/2024 8:00 EDT Appointment [facility] Radiology Nuclear Medicine and PET [address] [phone] 03/01/2024 9:30 EDT Appointment [facility] Radiology Nuclear Medicine and PET [address] [phone] documented as of this encounter Visit Diagnoses Not on filedocumented in this encounter Care Teams Virtual Assistant Relationship Specialty Start Date End Date None, Provider PCP - General 03/08/16 08/21/18 documented as of this encounter
--- OUTSIDE RECORDS SUMMARY | 2024-02-10 01:29 | XMS_ITS | Encounter Summary ---
Author Organization [facility] Address [address] [place] [address] Care Team Providers Care Manager Registration Name Role Phone Benita Shafer RELATIONSHIP MANAGER Primary Care Provider Encounter Details Date Type Department Care Team (Late st Contact Info) Description 10/26/2018 Phlebotomy Only [facility] - [address] [address] Atm Servicer, Outpatient Complication of in first trimester (Primary [facility] [address] 745551 Carrington Calderon MD 1 [facility] Level 1 [place] [address] 02/27/2024 8:30 EDT Telemedicine [facility] Sleep Program - [address] [place] [address] Dwight Colbert [address] [place], [place] [address] 02/29/2024 10:30 EDT Appointment [facility] Radiology Nuclear Medicine and PET - [address] [address] 02/29/2024 14:30 EDT Appointment [facility] Radiology Nuclear Medicine and PET - [address] [phone] 03/01/2024 8:00 EDT Appointment [facility] Radiology Nuclear Medicine and PET [address] [phone] 03/01/2024 9:30 EDT Appointment [facility] Radiology Nuclear Medicine and PET [address] [address] documented as of this encounter Procedures Procedure Name Priority Date/Time Associated Diagnosis Comments QUANT BETA HCG, Routine 10/26/2018 8:48 EDT Complication of in first trimester documented in this encounter Results * (ABNORMAL) QUANT BETA HCG, (10/26/2018 8:48 EDT) Quant Beta HCG, Preg 1,531(H) <5 mIU/ml 10/26/2018 9:52 EDT [facility] Comment: Reference Range: Negative = <5 Indeterminate = 5-25 recommend repeat in 48 hours. Positive = >25 The results of this assay can be falsely lowered due to the consumption of Biotin. Blood specimen (specimen) BLOOD SPECIMEN / Unknown 10/26/2018 8:48 EDT 10/26/2018 9:00 EDT Ana Coronado MD CHEMISTRY & BLOOD GAS ORDERABLES [facility] [address] [place] [address] documented in this encounter Visit Diagnoses Diagnosis Complication of in first trimester- Primary documented in this encounter Care Teams Manager Registration Relationship Specialty Start Date End Date Benita Shafer NP PCP - General 08/22/18 06/17/19 documented as of this encounter
--- OUTSIDE RECORDS SUMMARY | 2024-02-10 01:29 | XMS_ITS | Encounter Summary ---
Author Organization [facility] Address [address] [place] [address] Care Team Providers Care Evaluation Assistant Name Role Phone None, Provider Primary Care Provider Unavailabl e Reason for Visit * Reason Comments Abscess Encounter Details Date Type Department Care Team (Latest Contact Info) Description 07/15/2016 11:37 EST - 07/15/2016 14:25 EST Hospital Encounter [facility] Urgent Care - [address] [address] Moy Marquez MD 0 [place] [phone] Unknown, Provider, Perianal abscess (Primary Dx); Nausea and vomiting, intractability of vomiting not specified, unspecified vomiting type; Type 2 diabetes mellitus with complication, unspecified parts counterman insulin use status ([facility]) Discharge Disposition: Home or Self Care Social [...] 14:19 EST For your perianal abscess, take [id number] Tylenol (acetaminophen) as needed for pain. Keep [...] sent through Care Everywhere. * PERIRECTAL ABSCESS ([place]) documented in this encounter Medications at Time [...] will look into following up at the [facility]. Certainly follow up acutely as needed otherwise. [...] UA Clear Final Bilirubin Neg Final Specific [place] 1.015 Final pH 5.5 Final Urobilinogen 0.2 Final Nitrite Neg Final Tech ID [id number] Final POCT GLUCOSE - Normal Glucose, POC [...] a primary care doctor; recommenda [facility] which the patient was amenable to. Plan: Perirectal abscess - s/p I&D with no purulence expressed - CBC and Diff Diabetes, type 2 - Hemoglobin A1C - BMP - metformin 500 mg BID [facility] DISPOSITION: Discharged The patient's pain was managed to an adequate level weighing risk vs. benefit of further medications. Upon departure from the Emergency Department, the patient's pain was 2 on a zero to ten scale. Condition at departure from the Emergency Department: Stable PCP: Provider None [facility] 07/15/2016 14:10 No flowsheet data found. Callum Vicente MD, 07/15/2016 14:35 Family Medicine PGY 1, Page #[phone] documented in this encounter Plan of Treatment Upcoming Encounters Date Type Department Care Team (Late st Contact Info) Description 02/21/2024 9:45 EDT Office Visit [facility] Adult Primary Care - [address] [address] Carrington Calderon MD [address] [phone] 02/27/2024 8:30 EDT Telemedicine [facility] Sleep Program - [address] [phone] Dwight Colbert [address] [place] [phone] 02/29/2024 10:30 EDT Appointment [facility] Radiology Nuclear Medicine and PET - [address] [address] 02/29/2024 14:30 EDT Appointment [facility] Radiology Nuclear Medicine and PET - [address] [address] 03/01/2024 8:00 EDT Appointment [facility] Radiology Nuclear Medicine and PET - [address] [address] 03/01/2024 9:30 EDT Appointment [facility] Radiology Nuclear Medicine and PET - [address] [address] documented as of this encounter Procedures Procedure Name Priority Date/Time Associated Diagnosis Comments HEMOGLOBIN A1C STAT 07/15/2016 13:18 EST Type 2 diabetes mellitus with complication, unspecified parts counterman insulin use status ([facility]) COMPLETE BLOOD COUNT AND DIFFERENTIAL STAT 07/15/2016 13:11 EST Type 2 diabetes mellitus with complication, unspecified fdc insulin use status ([facility]) BASIC METABOLIC PANEL (BMP) STAT 07/15/2016 13:11 EST Nausea and vomiting, intractability of vomiting not specified, unspecified vomiting type POCT GLUCOSE, INTERFACED STAT 07/15/2016 12:28 EST Type 2 diabetes mellitus with complication, unspecified fdc insulin use status ([facility]) URINE SEDIMENT (MICRO) WITHOUT REFLEX TO CULTURE [...] EST) Hemoglobin A1C 11.2 % 07/16/2016 11:24 [facility] Comment: Reference Range: <5.7% Normal 5.7-6.4% Increased risk for diabetes =>6.5% Diagnostic for diabetes (if confirmed) The A1c goal for non adults in general is <7%. The A1c goal for selected patients may be significantly lower than 7% if this can be achieved without significant hypoglycemia or other adverse effects of treatment. Est Avg Glucose 275 mg/dl 7 11:24 [facility] Comment: eAG represents the A1c result expressed as average glucose in mg/dl. Blood specimen (specimen) BLOOD SPECIMEN / Unknown 07/15/2016 13:18 EST 07/15/2016 13:28 EST Callum Vicente MD MPH CHEMISTRY & BLOOD GAS ORDERABLES Performing Organization Address City/State/[facility] Co de Phone Number [facility] [address] [place] [address] * (ABNORMAL) HEMAGRAM AND DIFFERENTIAL (07/15/2016 13:11 EST) WBC 12.30 4.0 - 12.4 K/cmm 07/15/2016 13:30 [facility] RBC 4.88 3.86 - 5.04 M/cmm 07/15/2016 13:30 [facility] Hemoglobin 15.2 11.6 - 15.2 gm/dl 07/15/2016 13:30 [facility] HCT 42.1 34.9 - 44.4 % 07/15/2016 13:30 [facility] MCV 86 81 - 98 fl 07/15/2016 13:30 [facility] MCH 31.1 26.7 - 33.3 pg 07/15/2016 13:30 [facility] MCHC 36.1(H) 32.1 - 35.9 gm/dl 07/15/2016 13:30 [facility] RDW-CV 12.5 11.7 - 14.6 % 07/15/2016 13:30 [facility] RDW-SD 38.5 37.6 - 50.3 fl 07/15/2016 13:30 [facility] PLT 331 141 - 377 K/cmm 07/15/2016 13:30 [facility] MPV 9.5 9.5 - 12.7 fl 07/15/2016 13:30 [facility] % Neutrophils 72.6 % 07/15/2016 13:30 [facility] % Lymphocytes 18.7 % 07/15/2016 13:30 [facility] % Monocytes 7.8 % 07/15/2016 13:30 [facility] % Eosinophils 0.7 % 07/15/2016 13:30 [facility] % Basophils 0.2 % 07/15/2016 13:30 [facility] ABS Neutrophils 8.93(H) 2.20 - 8.85 K/cmm 07/15/2016 13:30 [facility] ABS Lymphs 2.30 1.09 - 3.30 K/cmm 07/15/2016 13:30 [facility] ABS Monocytes 0.96(H) 0.1 - 0.8 K/cmm 07/15/2016 13:30 [facility] ABS Eosinophils 0.09 0.03 - 0.61 K/cmm 07/15/2016 13:30 [facility] ABS Basophils 0.02 0.01 - 0.11 K/cmm 07/15/2016 13:30 [facility] Type of Diff: Automated 07/15/2016 13:30 [facility] Comment:Performed at [place], [place] Blood specimen (specimen) BLOOD SPECIMEN / Unknown 07/15/2016 13:11 EST 07/15/2016 13:27 EST Calulm Vicente MD MPH PACKAGES & DNA NV OBE ORDERABLES [facility] [address] [place] [address] * (ABNORMAL) BASIC METABOLIC PANEL (07/15/2016 13:11 EST) Sodium 138 136 - 145 mEq/L 07/15/2016 14:01 [facility] Potassium 4.2 3.5 - 5.0 mEq/L 07/15/2016 14:01 [facility] Chloride 101 96 - 110 mEq/L 07/15/2016 14:01 [facility] CO2 27 22 - 32 mEq/L 07/15/2016 14:01 [facility] Comment:Note new reference r masoud 03/23/16 BUN 9(L) 10 - 26 mg/dl 07/15/2016 14:01 [facility] Creatinine 0.40(L) 0.52 - 1.04 mg/dl 07/15/2016 14:01 [facility] GFR, Calculated 139 >60 ml/min/1.7 3m2 07/15/2016 14:01 [facility] Comment: eGFR calculated using CKD-EPI equation for non Americans. Multiply eGFR by 1.16 for Americans. Calcium 9.2 8.5 - 10.5 mg/dl 07/15/2016 14:01 [facility] Calculated Calcium 9.4 8.5 - 10.5 mg/dl 07/15/2016 14:01 [facility] Comment: Note new formula for calculation in use 03/10/2016 Glucose, Serum 246(H) 70 - 100 mg/dl 07/15/2016 14:01 [facility] Fasting? Unknown 07/15/2016 13:27 [facility] Comment:Performed at [place], [place] Blood specimen (specimen) BLOOD SPECIMEN / Unknown 07/15/2016 13:11 EST 07/15/2016 13:27 EST Callum Vicente MD MPH CHEMISTRY & BLOOD GAS ORDERABLES [facility] [address] [place] [address] * (ABNORMAL) POCT GLUCOSE (07/15/2016 12:28 EST) Glucose, POC 221(A) 70 - 100 mg/dL [facility] Blood specimen (specimen) 07/15/2016 12:28 EST Callum Vicente MD MPH POINT OF CARE [place] T ORDERABLES Performing Organization Address City/[facility]/ZIP Co de Phone Number [facility] [address] [place] [address] * (ABNORMAL) URINALYSIS MICROSCOPIC ONLY (07/15/2016 12:06 EST) WBC, UA less than 1 0 - 5 /HPF 07/15/2016 12:43 EST [facility] RBC, UA 1 to 5 0 - 5 /HPF 07/15/2016 12:43 [facility] Squam Epithel, UA Many(A) None seen /HPF 07/15/2016 12:43 [facility] Renal Epithel, UA None seen None seen /HPF 07/15/2016 12:43 [facility] Bacteria, UA Rare(A) None seen /HPF 07/15/2016 12:43 [facility] Crystals, UA None seen /HPF 07/15/2016 12:43 [facility] Hyaline Casts, UA None seen /LPF 07/15/2016 12:43 [facility] UA Comment Microscopic results 07/15/2016 12:13 [facility] Comment: are unreliable on urines unrefrig >2hrs or refrig >8hrs. Mucus, UA Present 07/15/2016 12:43 [facility] Comment:Performed at [facility], [place], [place] Urine specimen (specimen) URINE / Unknown 07/15/2016 12:06 EST 07/15/2016 12:17 EST Moy Marquez MD URINALYSIS ORDERAB LES [facility] [address] [place] [address] * TEST, URINE (07/15/2016 12:06 EST) Result- Test, Ur Neg Neg 07/15/2016 12:40 [facility] Comment: NOTE: False negative results may occur in women who are beyond 5-8 weeks gestation. Diagnosis of should be based on a correlation of test results with typical clinical signs and symptoms. Performed at [facility], [place], [place] Urine specimen (specimen) URINE / Unknown 07/15/2016 12:06 EST 07/15/2016 12:16 EST Moy Marquez MD URINALYSIS ORDERAB LES [facility] [address] [place] [address] * (ABNORMAL) POCT URINE DIPSTICK (07/15/2016 12:06 EST) Color YELLOW 07/15/2016 12:11 [facility] Clarity, UA Clear 07/15/2016 12:11 [facility] Glucose 2+(A) Neg 07/15/2016 12:11 [facility] Bilirubin Neg Neg 07/15/2016 12:11 [facility] Ketones 1+(A) Neg 07/15/2016 12:11 [facility] Specific [place] 1.015 1.001 - 1.035 07/15/2016 12:11 [facility] Blood 3+(A) Neg 07/15/2016 12:11 [facility] pH 5.5 4.6 - 8.0 07/15/2016 12:11 [facility] Protein Trace(A) Neg 07/15/2016 12:11 [facility] Urobilinogen 0.2 0.2 - 1.0 E.U./dl 07/15/2016 12:11 [facility] Nitrite Neg Neg 07/15/2016 12:11 [facility] Leuk Esterase Trace(A) Neg 07/15/2016 12:11 [facility] electrical project manager ID [id number] 07/15/2016 12:11 [facility] Comment:Test performed at [facility] Urine specimen (specimen) URINE / Unknown 07/15/2016 12:06 EST 07/15/2016 12:11 EST Moy Marquez MD POINT OF CARE TEST ORDERABLES [facility] [address] [place] [address] documented in this encounter Visit Diagnoses Diagnosis Perianal abscess- Primary Abscess of anal and rectal regions Nausea and vomiting, intractability of vomiting not specified, unspecified vomiting type Type 2 diabetes mellitus with complication, unspecified parts counterman insulin use status documented in this encounter [...] documented as of this encounter Care Teams Evaluation Assistant Relationship Specialty Start Date End Date None, Provider PCP - General 03/08/16 08/21/18 documented as of this encounter
--- OUTSIDE RECORDS SUMMARY | 2024-02-10 01:29 | XMS_ITS | Encounter Summary ---
Author Organization [facility] Address [address] [place] [address] Care Team Providers Care Dye Tub Operator Name Role Phone Benita Shafer GUSTAVO Primary Care Provider [phone] Encounter Details Date Type Department Care Team (Late st Contact Info) Description 10/26/2018 8:34 EDT - 10/26/2018 11:35 EDT Hospital Encounter [facility] [address] [place] [address] Ana Coronado MD 111 [facility], Level [address] [place] [address] Discharge Disposition: Auto Discharge Social [...] [facility] - [address] [phone] Carrington Calderon MD 1 [facility] 1 [place] [phone] 02/27/2024 8:30 EDT Telemedicine [facility] Sleep Program - [address] [phone] Dwight Colbert [address] [place] [phone] 02/29/2024 10:30 EDT Appointment [facility] Radiology Nuclear Medicine and PET - [address] [phone] 02/29/2024 14:30 EDT Appointment [facility] Radiology Nuclear Medicine and PET - [address] [phone] 03/01/2024 8:00 EDT Appointment [facility] Radiology Nuclear Medicine and PET - [address] [phone] 03/01/2024 9:30 EDT Appointment [facility] Radiology Nuclear Medicine and PET [address] [phone] documented as of this encounter Visit Diagnoses Not on filedocumented in this encounter Care Teams Dye Tub Operator Relationship Specialty Start Date End Date Benita Shafer NP PCP - General 08/22/18 06/17/19 documented as of this encounter
--- OUTSIDE RECORDS SUMMARY | 2024-02-10 01:30 | XMS_ITS | Encounter Summary ---
Author Organization [facility] Address [address] [place] [address] Care Team Providers Care Mannequin Mounter Name Role Phone Nimisha Clifton BOMB TECHNICIAN Primary Care Provider [phone] Reason for Visit * Reason Comments New Patient Visit Otalgia pain off and on for years but hurts consistantly since Tuesday Encounter Details Date Type Department Care Team (Late st Contact Info) Description 09/03/2015 11:00 EDT Office Visit [facility] Adult Primary Care - [address] [phone] Nimisha Clifton NP [address] [phone] Type 2 diabetes mellitus without complication (CMS-HCC) [...] from the [facility]. Presently lives [facility] with her boyfriend/significant other and his 4-year-old [...] citalopram and develop suicidal ideation-she went to [place] for a short stay for withdrawal from [...] years until this past month when her PEDIATRICS HOSPITALIST placed her back on it in early [...] unknown. She follows with Dr. López/affiliates in [facility] for her PEDIATRICS HOSPITALIST care. She had a D&C done earlier [...] Hemoglobin A1c; Future Tachycardia Orders: - Thyroid [place]; Future Depression, unspecified depression type Orders: - Thyroid [place]; Future Other orders - insulin glargine ([facility] [address] [phone] Carrington Calderon MD [address] [phone] 02/27/2024 8:30 EDT Telemedicine [facility] Sleep Program - [address] [phone] Dwight Colbert [address] [place] [phone] 02/29/2024 10:30 EDT Appointment [facility] Radiology Nuclear Medicine and PET [address] [phone] 02/29/2024 14:30 EDT Appointment [facility] Radiology Nuclear Medicine and PET - [address] [phone] 03/01/2024 8:00 EDT Appointment [facility] Radiology Nuclear Medicine and PET [address] [address] 03/01/2024 9:30 EDT Appointment [facility] Radiology Nuclear Medicine and [address] [address] documented as of this encounter Results * (ABNORMAL) THYROID CASCADE (09/03/2015 12:33 EDT) TSH 0.48(L) 0.55 - 4.78 uIU/ml 09/03/2015 18:19 EDT [facility] Comment: TSH cascade is not recommended for patients in which pituitary or hypothalamic disorders are suspected. Blood specimen (specimen) BLOOD SPECIMEN / Unknown 09/03/2015 12:33 EDT 09/03/2015 13:37 EDT Nimisha Clifton NP CHEMISTRY & BLOOD GAS ORDERABLES Performing Organization Address [facility] Co de Phone Number [facility] [address] [place] [address] * HEMOGLOBIN A1C (09/03/2015 12:33 EDT) Pathologist [facility] Hemoglobin A1C 8.8 % 09/03/2015 14:56 EDT [facility] Comment: Reference Range: [...] Avg Glucose 206 mg/dl 6 14:56 EDT [facility] Comment: eAG represents the A1c result expressed as average glucose in mg/dl. Blood specimen (specimen) BLOOD SPECIMEN / Unknown 09/03/2015 12:33 EDT 09/03/2015 13:37 EDT Nimisha Clifton NP CHEMISTRY & BLOOD GAS ORDERABLES [facility] [address] [place] [address] * (ABNORMAL) COMPREHENSIVE METABOLIC PANEL (CMP) (09/03/2015 12:33 EDT) Potassium 4.1 3.5 - 5.0 mEq/L 09/03/2015 14:15 [facility] Sodium 141 136 - 145 mEq/L 09/03/2015 14:15 [facility] Chloride 101 96 - 110 mEq/L 09/03/2015 14:15 [facility] CO2 29 24 - 32 mEq/L 09/03/2015 14:15 [facility] Total Alkaline Phosphatase 84 38 - 126 U/L 09/03/2015 14:15 [facility] Bilirubin, Total <0.5 <1.4 mg/dl 09/03/19 16 14:15 [facility] AST 19 15 - 46 U/L 09/03/2015 14:15 [facility] ALT 33 <53 U/L 09/03/2015 14:15 [facility] Albumin 3.9 3.4 - 4.9 g/dl 09/03/2015 14:15 [facility] Total Protein 6.6 6.3 - 8.2 g/dl 09/03/2015 14:15 [facility] Creatinine 0.48(L) 0.52 - 1.04 mg/dl 09/03/2015 14:15 [facility] GFR, Calculated 132 >60 ml/min/1.7 3m2 09/03/2015 14:15 [facility] Comment: eGFR calculated using CKD-EPI equation for non Americans. Multiply eGFR by 1.16 for Americans. BUN 11 10 - 26 mg/dl 09/03/2015 14:15 [facility] Calcium 9.8 8.5 - 10.5 mg/dl 09/03/2015 14:15 [facility] Calculated Calcium 10.3 8.5 - 10.5 mg/dl 09/03/2015 14:15 [facility] Glucose, Serum 205(H) 70 - 100 mg/dl 09/03/2015 14:15 EDT [facility] Fasting? No 09/03/2015 12:23 EDT [facility] Blood specimen (specimen) BLOOD SPECIMEN / Unknown 09/03/2015 12:33 EDT 09/03/2015 13:37 EDT Nimisha Clifton NP CHEMISTRY & BLOOD GAS ORDERABLES [facility] [address] [place] [address] documented in this encounter Visit Diagnoses Diagnosis Type 2 diabetes mellitus without complication ([facility] Primary Type II or unspecified type diabetes [...] 03/08/2016 added in this encounter Care Teams Mannequin Mounter Relationship Specialty Start Date End Date Nimisha Clifton NP 1 [facility] 1 [place] [phone] PCP - General 08/28/15 03/07/16 documented as of this encounter
--- OUTSIDE RECORDS SUMMARY | 2024-02-10 01:30 | XMS_ITS | Encounter Summary ---
Author Organization [facility] Address [address] [place] [address] Care Team Providers Care Sql Server Developer Name Role Phone Unavailable Primary Care Provider Unavailabl e Encounter Details Date Type Department Care Team (Late st Contact Info) Description 07/28/2006 15:28 EST Hospital Encounter [facility] [address] [place] [address] Elise Vanegas MD [address] [place] [address] Social History Tobacco Use Types Packs/Day Years Used Date Smoking Tobacco: Every Day Cigarettes 0.5 13.2 Started: 11/10/2010 Smokeless Tobacco: Never Comments:06/13/20 actively try ing to quit about 5-8 cigs/day Alcohol Use Standard Drinks/Week Comments Yes 0 (1 standard drink = 0.6 oz pur e alcohol) rarely [facility] Utilities Answer Date Recorded In the past 12 months has [employer], gas, oil, or water [employer] threatened to shut off services in your [...] any time in the past 12 m [facility], were you homeless or [...] [facility] Adult Primary Care - [address] [phone] Carrington Calderon MD [address] [phone] 02/27/2024 8:30 EDT Telemedicine [facility] Sleep Program - [address] [phone] Dwight Colbert [address] [place] [phone] 02/29/2024 10:30 EDT Appointment [facility] Radiology Nuclear Medicine and [address] [phone] 02/29/2024 14:30 EDT Appointment [facility] Radiology Nuclear Medicine and [address] [phone] 03/01/2024 8:00 EDT Appointment [facility] Radiology Nuclear Medicine and PET [address] [phone] 03/01/2024 9:30 EDT Appointment [facility] Radiology Nuclear Medicine and [address] [phone] documented as of this encounter Visit Diagnoses Not on filedocumented in this encounter Additional Health Concerns Infection Onset Date Last Indicated Resolved Time R/O COVID-19 08/04/2020 08/04/2020 08/04/2020 11:4 0 EST documented as of this encounter
--- OUTSIDE RECORDS SUMMARY | 2024-02-10 01:30 | XMS_ITS | Encounter Summary ---
Author Organization [facility] Address [address] [place] [address] Care Team Providers Care Estimating Engineer Name Role Phone Unavailable Primary Care Provider Unavailabl e Encounter Details Date Type Department Care Team (Latest Contact Info) Description 08/23/2007 10:09 EDT - 08/23/2007 11:59 EDT Hospital Encounter [facility] Emergency Department - Main [place] [address] [place], [place] [phone] Emergency, MD Ekaterina Discharge Disposition: Home or [...] [facility] - [address] [phone] Carrington Calderon MD [address] [phone] 02/27/2024 8:30 EDT Telemedicine [facility] Sleep Program - [address] [phone] Dwight Colbert [address] [place], [place] [phone] 02/29/2024 10:30 EDT Appointment [facility] Radiology Nuclear Medicine and PET - [address] [id number] 02/29/2024 14:30 EDT Appointment [facility] Radiology Nuclear Medicine and PET - [address] [phone] 03/01/2024 8:00 EDT Appointment [facility] Radiology Nuclear Medicine and PET - [address] [phone] 03/01/2024 9:30 EDT Appointment [facility] Radiology Nuclear Medicine and PET [address] [phone] documented as of this encounter Procedures Procedure [...] BLOOD G ORDERABLES [facility] [address] [place] [address] * PHOSPHORUS (08/23/2007 14:50 EDT) Phosphorus 3.1 2.5 - 4.5 mg/dl [facility] 08/23/2007 14:5 0 EDT 08/23/2007 15:01 EDT Default Emergency MD CHEMISTRY & BLOOD G ORDERABLES Performing Organization Address City/[facility] de Phone Number [facility] [address] [place] [address] * MAGNESIUM (08/23/2007 14:50 EDT) Pathologist [facility] Magnesium 1.9 1.7 - 2.8 mg/dl [facility] 08/23/2007 14:5 0 EDT 08/23/2007 15:01 EDT Default Emergency MD CHEMISTRY & BLOOD G ORDERABLES Performing Organization Address [facility] de Phone Number [facility] [address] [place] [address] * ELECTROLYTES (08/23/2007 14:50 EDT) Pathologist [facility] Sodium 142 136 - 145 mEq/L [facility] Potassium 4.2 3.5 - 5.0 mEq/L [facility] Chloride 105 96 - 110 mEq/L [facility] CO2 25 24 - 32 mEq/L [facility] 08/23/2007 14:5 0 EDT 08/23/2007 15:01 EDT Default Emergency MD CHEMISTRY & BLOOD G ORDERABLES Performing Organization Address [facility] de Phone Number [facility] [address] [place] [address] * HOLD BLUE TOP (08/23/2007 14:50 EDT) Hold Blue Top Sample for coagulation will be discarded after 4 hours [facility] 08/23/2007 14:5 0 EDT 08/23/2007 15:01 EDT Default Emergency MD LAB INFO SERVICE AN D SUPPORT & PHONE RESULT Performing Organization Address [facility] Co de Phone Number [facility] [address] [place] [address] * FOLATE (08/23/2007 14:50 EDT) Pathologist [facility] Folate >24.0 ng/mL [facility] Comment: Deficient: ??Less than 3.4 ng/mL Indeterminate: ??3.4-5.4 ng/mL Normal: ??Greater than 5.4 ng/mL 08/23/2007 14:5 0 EDT 08/23/2007 15:01 EDT Default Emergency MD CHEMISTRY & BLOOD G ORDERABLES Performing Organization Address City/[facility] Co de Phone Number [facility] [address] [place] [address] * (ABNORMAL) CREATININE (08/23/2007 14:50 EDT) [facility] [address] [facility] Creatinine 0.66(L) 0.7 - 1.5 mg/dl [facility] GFR, Calculated >60 ml/min/1.7 3m2 [facility] 08/23/2007 14:5 0 EDT 08/23/2007 15:01 EDT Default Emergency MD CHEMISTRY & BLOOD G ORDERABLES Performing Organization Address [facility] de Phone Number [facility] [address] [place] [address] * CK (08/23/2007 14:50 EDT) Pathologist [facility] CK 68 30 - 135 U/L [facility] 08/23/2007 14:5 0 EDT 08/23/2007 15:01 EDT Default Emergency MD CHEMISTRY & BLOOD G ORDERABLES Performing Organization Address [facility] Co de Phone Number [facility] [address] [place] [address] * (ABNORMAL) HEMAGRAM AND DIFFERENTIAL (08/23/2007 14:50 EDT) Pathologist [facility] WBC 11.97 4.0 - 12.4 K/cmm [facility] [...] Monocytes 4.9 1.8 - 12.0 % [facility] % Eosinophils 1.0 0.6 - 6.9 [...] PROB E ORDERABLES [facility] [address] [place] [address] * CALCIUM (08/23/2007 14:50 EDT) Calcium 10.0 8.5 - 10.5 mg/dl [facility] Calculated Calcium 10.0 8.5 - 10.5 mg/dl [facility] 08/23/2007 14:5 0 EDT 08/23/2007 15:01 EDT Default Emergency CHEMISTRY & BLOOD G ORDERABLES Performing Organization Address [facility] de Phone Number [facility] [address] [place] [address] * BUN (08/23/2007 14:50 EDT) BUN 12 10 - 26 mg/dl [facility] 08/23/2007 14:5 0 EDT 08/23/2007 15:01 EDT Default Emergency CHEMISTRY & BLOOD G ORDERABLES Performing Organization Address [facility] de Phone Number [facility] [address] [place] [address] documented in this encounter Visit Diagnoses Not on filedocumented in this encounter
--- OUTSIDE RECORDS SUMMARY | 2024-02-10 01:30 | XMS_ITS | Encounter Summary ---
Author Organization [facility] Address [address] [place] [address] Care Team Providers Care Parts Driver Name Role Phone None, Provider Primary Care Provider Unavailabl e Encounter Details Date Type Department Care Team (Late st Contact Info) Description 08/22/2015 Documentation Visit [facility] Obstetrics & Midwifery - [address] [phone] Broderick Wolff MD 111 [facility], [address] [place] [address] Social History Tobacco Use Types [...] [facility] - [address] [address] Carrington Calderon MD 1 [facility] [address] [place] [phone] 02/27/2024 8:30 EDT Telemedicine [facility] Sleep Program - [address] [address] Dwight Colbert [address] [place] [phone] 02/29/2024 10:30 [facility] [address] [phone] 02/29/2024 14:30 EDT Appointment [facility] Radiology Nuclear Medicine and PET [address] [phone] 03/01/2024 8:00 EDT Appointment [facility] Radiology Nuclear Medicine and PET [address] [id number] 03/01/2024 9:30 EDT Appointment [facility] Radiology Nuclear Medicine and PET [address] [phone] documented as of this encounter Visit Diagnoses Not on filedocumented in this encounter Care Teams Parts Driver Relationship Specialty Start Date End Date None, Provider PCP - General 01/01/15 08/27/15 documented as of this encounter
--- OUTSIDE RECORDS SUMMARY | 2024-02-10 01:30 | XMS_ITS | Encounter Summary ---
Author Organization [facility] Address [address] [place] [address] Care Team Providers Care Weigher Bulker Name Role Phone None, Provider Primary Care [...] 15:27 EDT - 02/24/2015 20:58 EDT Emergency [facility] Emergency Department - [address] [address] Sonal Rand, MARY [address] JAKE [address] [place] [phone] Broderick Signh MD [address] [place] [address], Level [address] [place] [address] Chilo Carrillo MD Emergency, MD [...] 20:40 EDT [employer] liquids See the outbound sales agent doctor in 2 days as planned Return [...] test on 01/19 and positive UPT at [facility] the next week. She initiated care at [facility] 2 weeks ago and was told that the fetus had no heartbeat but was measuring 7 weeks. She wanted a second opinion so she went to [facility] on 02/14 where she was told that [...] Grandmother ??? Diabetes Paternal Grandfather OB History LEGAL ACTIVITY ADJUDICATOR History OB History Para Term AB SAB [...] examined with Dr. Michael Emanuel MD PGY-1 [facility] Obstetrics and Gynecology Pager: [phone] Brii Austin MD 02/24/2015 20:22 Attending addendum: [...] This RN present for pt's D+C by LEGAL ACTIVITY ADJUDICATOR. Pt monitored for 1 hr s/p procedure. [...] ER. Pt to f/u with PCP and LEGAL ACTIVITY ADJUDICATOR. * Carline LunaMARCELO - 02/24/2015 1921 EDT Assumed care of pt. Pt tearful, family at bedside. VSS. Pt with no c/o pain or nausea at this time.Apical reg, LCTA, RR even/reg. BS present. Cap refill <2 secs. Call calloway within reach. No statedneeds at this time. * Doris Balderas RN - 02/24/2015 1844 EDT [employer] [facility] surgery services at bedside now discussing findings and plan of care. * Doris Balderas RN - 02/24/2015 1757 EDT Taken for US. * Doris Balderas RN - 02/24/2015 1732 EDT Pad change x 2 this hour for large amount vaginal bleeding with large clots. [employer] services in to evaluate-at bedside now. * [...] pending. ivf's infusing now. S/o at bedside. [employer] at bedside now. * Broderick Singh MD [...] ago. At that time, she visited her link wire fabric machine operator and was informed that she was 7 weeks , and that her baby had a no heartbeat. For a second evaluation at that time, the patient visited [facility], and was informed that her baby's heart beat was slow. The patient reports that spotting began again 1 week ago (Tuesday) at which time she returned to [facility] and was informed that her baby did [...] Specimen will be held for 5 days. ED/[facility] ADD-ON Tests to be added TYPE AND SCREEN Final Number for problems 11019 (ED) Final BLOOD BANK SPECIMEN HOLD Hold BB Spec will exp at 23:59, 3 days from collect date Final TYPE AND SCREEN ABO B Final Rh Factor Negative Final Antibody Screen Positive Final Specimen Expires: 02/27/2015 @ 23:59 Final DIRECT ANTIGLOBULIN TEST LIZZIE Negative Final PREPARE RED BLOOD CELLS Product Code E0336 -1 RED BLOOD CELLS, Leukocytes Reduced Final Donor Number [id number] Final Unit ABO B Final Unit Rh [...] ordered. Seen in the ED by the LEGAL ACTIVITY ADJUDICATOR service. Care is signed out to Dr. Carrillo at 17:10 with LEGAL ACTIVITY ADJUDICATOR evaluation inprogress. ASSESSMENT AND PLAN Final diagnoses: [...] found. * Jose Thompson RN - 02/24/2015 7878 EDT Chief Complaint Patient presents with ??? [...] [facility] Adult Primary Care - [address] [phone] Carrington Calderon MD 1 [facility] 1 [place] [phone] 02/27/2024 8:30 EDT Telemedicine [facility] Sleep Program - [address] [address] Dwight Colbert [address] [place] [address] [phone] (work) 02/29/2024 10:30 EDT Appointment [facility] Radiology Nuclear Medicine and PET [address] [phone] 02/29/2024 14:30 EDT Appointment [facility] Radiology Nuclear Medicine and PET [address] [phone] 03/01/2024 8:00 EDT Appointment [facility] Radiology Nuclear Medicine and PET - [address] [phone] 03/01/2024 9:30 EDT Appointment [facility] Radiology Nuclear Medicine and PET [address] [phone] Pending Results Name Type Priority Associated Diagnoses [...] E0336 -1 RED BLOOD CELLS, Leukocytes Reduced [facility] BLOOD BANK Donor Number [id number] [facility] BLOOD BANK Unit ABO B [facility] BLOOD BANK Unit Rh NEG [facility] BLOOD BANK Cross Match Interp Compatible [facility] BLOOD BANK Unit Status Released From Crossmatch [facility] BLOOD BANK 02/24/2015 18:4 7 EDT Chilo Carrillo MD BLOOD BANK ORDERABL ES Performing Organization Address City/[facility]/ZIP Co de Phone Number [facility] BLOOD BANK * DIRECT ANTIGLOBULIN TEST (02/24/2015 18:47 EDT) LIZZIE Negative [facility] BLOOD BANK 02/24/2015 18:4 7 EDT Chilo Carrillo MD BLOOD BANK TESTS [facility] BLOOD BANK * ANTIBODY IDENTIFICATION (02/24/2015 18:45 EDT) Antibody Identification Anti-D; patient recd RhIg [facility] BLOOD BANK 02/24/2015 18:4 5 EDT Chilo Carrillo MD BLOOD BANK TESTS Performing Organization Address City/[facility]/ZIP Co de Phone Number [facility] BLOOD BANK * RAD US PELVIS, TRANSVAGINAL, AND LIMITED DOPPLER (02/24/2015 18:21 EDT) Anatomical Region Laterality Modality Other 02/24/2015 18:2 1 EDT 02/25/2015 8:55 EDT Narrative 02/25/2015 8:55 EDT RAD US PELVIS, TRANSVAGINAL, AND LIMITED DOPPLER ??02/24/2015 6:21 PM Signs and Symptoms/Comments: ??reported IUP per outbound sales agent which was then found in past wk to be non viable, est at 9 wks and now with increased bleeding and abd pain ??US requested by outbound sales agent Comparison: Pelvic ultrasound October 2006 Technique: Grayscale [...] PM Signs and Symptoms/Comments: reported IUP per outbound sales agent which was then found in past wk to be non viable, est at 9 wks and now with increased bleeding and abd pain US requested by outbound sales agent Comparison: Pelvic ultrasound October 2006 Technique: Grayscale [...] AND SCREEN (02/24/2015 17:30 EDT) ABO B [facility] BLOOD BANK Rh Factor Negative [facility] BLOOD BANK Antibody Screen Positive [facility] BLOOD BANK Specimen Expires: 02/27/2015 @ 23:59 [facility] BLOOD BANK Blood specimen (specimen) 02/24/2015 17:30 EDT Chilo Carrillo MD BLOOD BANK TESTS [facility] BLOOD BANK * ED/[facility] ADD-ON (02/24/2015 17:30 EDT) Tests to be added TYPE AND SCREEN 02/24/2015 17:28 EDT [facility] Number for problems [id number] (ED) 02/24/2015 17:28 EDT [facility] TOPOGRAPHY UNKNOWN / Unknown 02/24/2015 17:30 EDT 02/24/2015 18:01 EDT Chilo Carrillo MD HEMATOLOGY & PF4 OR DERABLES Performing Organization Address City/[facility]/ZIP Co de Phone Number [facility] [address] [place] [address] * HOLD GREEN TOP (02/24/2015 16:00 EDT) Hold Green Top Hold for further testing. Specimen will be held for 5 days. 02/24/2015 16:18 EDT [facility] Blood specimen (specimen) BLOOD SPECIMEN / Unknown 02/24/2015 16:00 EDT 02/24/2015 16:07 EDT Sonal A Giorgi PA-C LAB INFO SERVICE AN D SUPPORT & PHONE RESULT Performing Organization Address [facility] Co de Phone Number [facility] [address] [place] [address] * BLOOD BANK SPECIMEN HOLD (02/24/2015 16:00 EDT) Hold BB Spec will exp at 23:59, 3 days from collect date [facility] BLOOD BANK Blood specimen (specimen) 02/24/2015 16:00 EDT Sonal A Giorgi PA-C BLOOD BANK TESTS Performing Organization Address [facility]/ZIP Co de Phone Number [facility] BLOOD BANK * HOLD SST (02/24/2015 16:00 EDT) Hold SST Hold for further testing. Specimen will be held for 5 days. 02/24/2015 16:18 EDT [facility] Blood specimen (specimen) BLOOD SPECIMEN / Unknown 02/24/2015 16:00 EDT 02/24/2015 16:07 EDT Sonal A Giorgi PA-C LAB INFO SERVICE AN D SUPPORT & PHONE RESULT Performing Organization Address City/[facility]/ZIP Co de Phone Number [facility] [address] [place] [address] * HOLD BLUE TOP (02/24/2015 16:00 EDT) Hold Blue Top Sample for coagulation will be discarded after 4 hours 02/24/2015 16:20 [facility] Blood specimen (specimen) BLOOD SPECIMEN / Unknown 02/24/2015 16:00 EDT 02/24/2015 16:07 EDT Sonal Rand PA-C LAB INFO SERVICE AN D SUPPORT & PHONE RESULT [facility] [address] [place] [address] * (ABNORMAL) HEMAGRAM AND DIFFERENTIAL (02/24/2015 16:00 EDT) WBC 17.81(H) 4.0 - 12.4 K/cmm 02/24/2015 16:11 [facility] RBC 4.36 3.86 - 5.04 M/cmm 02/24/2015 16:11 [facility] Hemoglobin 13.6 11.6 - 15.2 gm/dl 02/24/2015 16:11 [facility] HCT 39.5 34.9 - 44.4 % 02/24/2015 16:11 [facility] MCV 91 81 - 98 fl 02/24/2015 16:11 [facility] MCH 31.1 26.7 - 33.3 pg 02/24/2015 16:11 [facility] MCHC 34.3 32.1 - 35.9 gm/dl 02/24/2015 16:11 [facility] RDW-CV 12.6 11.7 - 14.6 % 02/24/2015 16:11 [facility] RDW-SD 39.8 37.6 - 50.3 fl 02/24/2015 16:11 [facility] PLT 383(H) 141 - 320 K/cmm 02/24/2015 16:11 [facility] MPV 8.0 7.5 - 11.2 fl 02/24/2015 16:11 EDT [facility] Neutrophils 68.0 45.5 - 79.7 % 02/24/2015 16:54 T [facility] Lymphocytes 21.0 15.0 - 46.8 % 02/24/2015 16:54 [facility] % Atyp Lymphs 2.0 % 02/24/2015 16:54 [facility] Monocytes 6.0 1.8 - 12.0 % 02/24/2015 16:54 T [facility] Eosinophils 2.0 0.6 - 6.9 % 02/24/2015 16:54 [facility] Basophils 1.0 0.2 - 1.4 % 02/24/2015 16:54 [facility] ABS Neutrophils 12.10(H) 2.20 - 8.85 K/cmm 02/24/2015 16:54 [facility] ABS Lymphs 3.74(H) 1.09 - 3.30 K/cmm 02/24/2015 16:54 [facility] ABS Atyp Lymphs 0.36 K/cmm 5 16:54 [facility] ABS Monocytes 1.07(H) 0.1 - 0.8 K/cmm 02/24/2015 16:54 [facility] ABS Eosinophils 0.36 0.03 - 0.61 K/cmm 02/24/2015 16:54 [facility] ABS Basophils 0.18(H) 0.01 - 0.11 K/cmm 02/24/2015 16:54 [facility] Vacuolization Present 02/24/2015 16:54 [facility] Type of Diff: Manual 02/24/2015 16:54 [facility] Blood specimen (specimen) BLOOD SPECIMEN / Unknown 02/24/2015 16:00 EDT 02/24/2015 16:07 EDT Sonal Rand PA-C PACKAGES & DNA PROB E ORDERABLES [facility] [address] [place] [id number] * SURGICAL PATHOLOGY (02/24/2015 9:01 EDT) Pathology Report: SURGICAL PATHOLOGY REPORT Reports generated via electronic interface contain original data; however they are lacking the format of the original report. Caution should be taken when reading/interpret ing unformatted reports. Name: ? CRISTY MONTELONGO ? Accession #: ? [id number] ? : ? 1985 (Age: 29) ??F [...] Cruz 02/25/2015 11:33 AM End of Report [facility] 02/24/2015 9:01 EDT 02/24/2015 9:01 EDT Sonal Rand PA-C PATHOLOGY ORDERABLE S [facility] [address] [place] [address] documented in this encounter Visit Diagnoses Diagnosis [...] 02/24/2015 documented in this encounter Care Teams Weigher Bulker Relationship Specialty Start Date End Date None, Provider PCP - General 01/01/15 08/27/15 documented as of this encounter
--- OUTSIDE RECORDS SUMMARY | 2024-02-10 01:30 | XMS_ITS | Encounter Summary ---
Author Organization [facility] Address [address] [place] [address] Care Team Providers Care Tyre Builder Name Role Phone Nimisha Clifton Kelly CERTIFIED LACTATION EDUCATOR Primary Care Provider [phone] Reason for Visit * Reason Comments Miscarriage Patient states.10 w eeks and last Tuesday found out no heart beat thus she states, I am having a miscarriage Vaginal bleeding X 1 weeks Lots of cramps Encounter Details Date Type Department Care Team (Late st Contact Info) Description 08/31/2015 14:05 EDT - 08/31/2015 20:53 EDT Emergency [facility] Emergency Department - [address] [address] Sonal Rand, PA-C [address] [phone] Danny Victoria MD Macnee, Lauren K, PA-Shiva [facility] [address] [place] [address] Emergency, MD Ekaterina Miscarriage (Primary [...] Sonal Rand - 08/31/2015 19:32 EDT Call [facility]NALYST clinic tomorrow to arrange for follow-up in the next couple of days as instructed by SQL ANALYST resident Percocet can be used for significant pain but should be used sparingly. Consider using gzak-joa-[id number] stool softener if using this medication to [...] 8/10 and sharp. [facility]was [facility] in [facility]BGYN clinic and underwent [...] D&C. The patient was transfer to a GLUELINE WORKER bed and was reportedto pass a large [...] Grandmother ??? Diabetes Paternal Grandfather OB History GLUELINE WORKER History OB History Para Term AB SAB [...] identified. These findings are consistent with demise. SQL ANALYST consultation and followup with serial beta hCG [...] and advised her to follow up with GLUELINE WORKER tomorrow. She verbalizes understanding. * Homa Goldsmith [...] history of DM, miscarriage, migraines who [facility] 10 weeks with a 6 day history of a known pole with no cardiac activity. She underwent suction aspiration for a prior miscarriage in the ED February 2015. [facility] with severe pelvic pain, vomiting and [...] Heart rate is abnormal. Negative for murmur. Maurice Protocol: risks and benefits discussed consent given [...] 10 weeks who gets her care at [facility] and had 10 week ultrasound 6 days [...] known miscarriage at 10 weeks Discussed with SQL ANALYST who recommend repeat ultrasound Ultrasound shows evidence of incomplete Labs unremarkable. Discussed with SQL ANALYST resident at 6:15, they will perform a suction D&C here under conscious sedation 7:15 PM-procedure is completed, sounds as if patient may have aborted large amount of material justprior to suction procedure. Uncomplicated procedure otherwise She is now recovering from ketamine sedation Remains tachycardic and will continue with IV hydration, now on her third liter. Given Compazine for vomiting Discussed follow-up with SQL ANALYST resident, she is to contact SQL ANALYST clinic tomorrow morning and alexis arrange for [...] the Emergency Department: Stable PCP: Nimisha Clifton [facility] Danny Victoria was consulted and agrees with treatment plan. 08/31/2015 18:14 No flowsheet data found. * Homa Goldsmith, RN - 08/31/2015 8938 EDT OB in with pt. * Homa [...] [facility] Adult Primary Care - [place] [address] [place], [place] [address] Carrington Calderon MD 1 [facility] Level [address] [place] [phone] 02/27/2024 8:30 EDT Telemedicine [facility] Sleep Program - [address] [place] [address] [place] [address] Dwight Colbert [address] [place] [address] 02/29/2024 10:30 EDT Appointment [facility] Radiology Nuclear Medicine and PET - [address] [address] 02/29/2024 14:30 EDT Appointment [facility] Radiology Nuclear Medicine and PET [address] [phone] 03/01/2024 8:00 EDT Appointment [facility] Radiology Nuclear Medicine and PET - [address] [phone] 03/01/2024 9:30 EDT Appointment [facility] Radiology Nuclear Medicine and PET [address] [address] documented as of this encounter Procedures Procedure [...] ED SEDATION PROCEDURE (09/01/2015 0:25 EDT) Narrative [facility] EKG - 09/01/2015 0:25 EDT Danny Victoria [...] rate is abnormal. ??Negative for murmur. ? Maurice Protocol: risks and benefits discussed consent given [...] PROCEDURE/MINOR BRAULIO GICAL ORDERABLES Performing Organization Address City/[facility]/ZIP Co de Phone Number [facility] EKG * PREPARE RED BLOOD CELLS (08/31/2015 21:22 EDT) Product Code [id number] [facility] BLOOD BANK Comment:E0336 -1 RED BLOOD CELLS, Leukocytes Reduced Donor Number [id number] [facility] BLOOD BANK Unit ABO B [facility] BLOOD BANK Unit Rh NEG [facility] BLOOD BANK Unit Status RE^Released From Crossmatch [facility] BLOOD BANK Product Expiration Date [id number] [facility] BLOOD BANK Unit Blood Type Code 1700 [facility] BLOOD BANK Coding System [id number] [facility] BLOOD BANK 08/31/2015 21:2 2 EDT Felicita Espinal MD BLOOD BANK ORDERABL ES Performing Organization Address City/[facility]/ZIP Co de Phone Number [facility] BLOOD BANK * ANTIBODY IDENTIFICATION (08/31/2015 19:17 EDT) Antibody Identification Anti-D; patient recd RhIg [facility] BLOOD BANK 08/31/2015 19:1 7 EDT Felicita Espinal MD BLOOD BANK TESTS Performing Organization Address City/[facility]/ZIP Co de Phone Number [facility] BLOOD BANK * RAD US OB LESS [...] identified. These findings are consistent with demise. SQL ANALYST consultation and followup with serial beta hCG [...] identified. These findings are consistent with demise. SQL ANALYST consultation and followup with serial beta hCG is suggested. These findings were discussed with SONAL DAWSON by Dr. Zac Benjamin on 08/31/2015 5:30 PM. I have personally reviewed the images and the above interpretation and agree with the findings. Sonal Rand PA-C IM US ORDERABLES * TYPE AND SCREEN (08/31/2015 16:20 EDT) ABO B [facility] BLOOD [facility] Rh Factor Negative [facility] BLOOD BANK Antibody Screen Positive [facility] BLOOD BANK Specimen Expires: 09/03/2015 @ 23:59 [facility] BLOOD BANK Blood specimen (specimen) 08/31/2015 16:20 EDT Felicita Espinal MD BLOOD BANK TESTS [facility] BLOOD BANK * (ABNORMAL) BASIC METABOLIC PANEL (08/31/2015 14:45 EDT) Sodium 140 136 - 145 mEq/L 08/31/2015 15:17 [facility] Potassium 4.1 3.5 - 5.0 mEq/L 08/31/2015 15:17 [facility] Chloride 106 96 - 110 mEq/L 08/31/2015 15:17 [facility] CO2 24 24 - 32 mEq/L 08/31/2015 15:17 [facility] BUN 9(L) 10 - 26 mg/dl 08/31/2015 15:17 [facility] Creatinine 0.41(L) 0.52 - 1.04 mg/dl 08/31/2015 15:17 [facility] GFR, Calculated 139 >60 ml/min/1.7 3m2 08/31/2015 15:17 [facility] Comment: eGFR calculated using CKD-EPI equation for non Americans. Multiply eGFR by 1.16 for Americans. Calcium 9.7 8.5 - 10.5 mg/dl 08/31/2015 15:17 [facility] Calculated Calcium 10.1 8.5 - 10.5 mg/dl 08/31/2015 15:17 [facility] Glucose, Serum 199(H) 70 - 100 mg/dl 08/31/2015 15:17 [facility] Fasting? Unknown 08/31/2015 15:02 [facility] Blood specimen (specimen) BLOOD SPECIMEN / Unknown 08/31/2015 14:45 EDT 08/31/2015 15:02 EDT Sonal Rand PA-C CHEMISTRY & BLOOD G ORDERABLES [facility] [address] [place] [address] * (ABNORMAL) HEMAGRAM AND DIFFERENTIAL (08/31/2015 14:45 EDT) WBC 18.76(H) 4.0 - 12.4 K/cmm 08/31/2015 15:09 [facility] RBC 4.70 3.86 - 5.04 M/cmm 08/31/2015 15:09 [facility] Hemoglobin 14.3 11.6 - 15.2 gm/dl 08/31/2015 15:09 [facility] HCT 40.4 34.9 - 44.4 % 08/31/2015 15:09 [facility] MCV 86 81 - 98 fl 08/31/2015 15:09 [facility] MCH 30.4 26.7 - 33.3 pg 08/31/2015 15:09 [facility] MCHC 35.4 32.1 - 35.9 gm/dl 08/31/2015 15:09 [facility] RDW-CV 12.2 11.7 - 14.6 % 08/31/2015 15:09 [facility] RDW-SD 38.8 37.6 - 50.3 fl 08/31/2015 15:09 [facility] PLT 421(H) 141 - 377 K/cmm 08/31/2015 15:09 [facility] MPV 9.5 9.5 - 12.7 fl 08/31/2015 15:09 [facility] % Neutrophils 70.6 % 08/31/2015 15:09 [facility] % Lymphocytes 19.8 % 08/31/2015 15:09 [facility] % Monocytes 6.1 % 08/31/2015 15:09 [facility] % Eosinophils 2.6 % 08/31/2015 15:09 [facility] % Basophils 0.4 % 08/31/2015 15:09 [facility] % Immature Grans 0.5 % 08/31/2015 15:09 [facility] ABS Neutrophils 13.26(H) 2.20 - 8.85 K/cmm 08/31/2015 15:09 EDT [facility] ABS Lymphs 3.71(H) 1.09 - 3.30 K/[facility] 08/31/2015 15:09 EDT [facility] ABS Monocytes 1.14(H) 0.1 - 0.8 K/[facility] 08/31/2015 15:09 EDT [facility] ABS Eosinophils 0.48 0.03 - 0.61 K/[facility] 08/31/2015 15:09 EDT [facility] ABS Basophils 0.08 0.01 - 0.11 K/[facility] 08/31/2015 15:09 [facility] ABS Immature Grans 0.09(H) 0 - 0.06 K/[facility] 08/31/2015 15:09 [facility] Type of Diff: Automated 08/31/2015 15:09 [facility] Blood specimen (specimen) BLOOD SPECIMEN / Unknown 08/31/2015 14:45 EDT 08/31/2015 15:02 EDT Sonal Rand PA-C PACKAGES & DNA PROB E ORDERABLES [facility] [address] [place] [address] documented in this encounter Visit Diagnoses Diagnosis [...] Dispensed Refills Start Date End Date [facility] by misc (non-drug; combo [...] 08/31/2015 documented in this encounter Care Teams Tyre Builder Relationship Specialty Start Date End Date Nimisha Clifton NP 1 [facility] [address] [place] [address] PCP - General 08/28/15 03/07/16 documented as of this encounter
--- OUTSIDE RECORDS SUMMARY | 2024-02-10 01:30 | XMS_ITS | Encounter Summary ---
Author Organization [facility] Address [address] [place] [address] Care Team Providers Care Rope Laying Machine Operator Name Role Phone Unavailable Primary Care Provider Unavailabl e Encounter Details Date Type Department Care Team (Late st Contact Info) Description 08/23/2007 Office Visit [facility] [address] [place] [address] Naomi Graham PA Social History Tobacco Use [...] Your Current Medications: Continue current medications. Follow-up: [facility], , [address] [place] [address], [phone]. Follow up as needed. PAYAL RODRIGUEZ, , [facility], [address] [place] [address], [address]. Follow up. Call for the next available appointment. call dr shahid [phone] and follow up in 2-3 weeks. Understanding [...] call you tomorrow to make an appointment ([phone]) . (Electronically signed by Aubrey Diana, 08/24/2007 [...] --1023 Antonella Reynaga R.N.. NURSING PROGRESS NOTES (Clinical Orthoptist at bedside speaking w/ pt. Warm blanket [...] 113 / 65. HR: 120. RR: 20. ([place] to bedside. Pt waiting for d/c.). --2016 [...] Patient verbalized understanding. Written instructions provided in Frisian. The patient was accompanied by general operator. The patient left the Emergency Department ambulatory. --2102 Rosa Handley R.N.. Rob Devine R.N. Student Nurse Locked/Released at 08/24/2007 15:04 by Silvia Shepard R.N. documented in this encounter Plan of Treatment Upcoming Encounters Date Type Department Care Team (Late st Contact Info) Description 02/21/2024 9:45 EDT [facility] - [address] [address] Carrington Calderon MD [address] [facility] [place] [address] [place] [address] 02/27/2024 8:30 EDT Telemedicine [facility] Sleep Program - [address] [phone] Dwight Colbert [address] [place] [phone] 02/29/2024 10:30 EDT Appointment [facility] Radiology Nuclear Medicine and PET - [address] [id number] 02/29/2024 14:30 EDT Appointment [facility] Radiology Nuclear Medicine and PET - [address] [address] 03/01/2024 8:00 EDT Appointment [facility] Radiology Nuclear Medicine and PET - [address] [phone] 03/01/2024 9:30 EDT Appointment [facility] Radiology Nuclear Medicine and PET - [address] [address]761 documented as of this encounter Visit Diagnoses Not on filedocumented in this encounter
--- OUTSIDE RECORDS SUMMARY | 2024-02-10 01:30 | XMS_ITS | Encounter Summary ---
Author Organization [facility] Address [address] [place] [address] Care Team Providers Care Demographic Analyst Name Role Phone Unavailable Primary Care Provider Unavailabl e Encounter Details Date Type Department Care Team (Late st Contact Info) Description 09/27/2006 9:23 EDT Hospital Encounter [facility] - [place] conversion [address] [place] [address] Fermin Lovett MD Social History Tobacco Use Types Packs/Day Years Used Date Smoking Tobacco: Every Day Cigarettes 0.5 13.2 Started: 11/10/2010 Smokeless Tobacco: Never Comments:06/13/20 actively try ing to quit about 5-8 cigs/day Alcohol Use Standard Drinks/Week Comments Yes 0 (1 standard drink = 0.6 oz pur e alcohol) rarely C Utilities Answer Date Recorded In the past 12 months has [employer], gas, oil, or water [employer] threatened to shut off services in your [...] any time in the past 12 m [facility], were you homeless or living [...] Visit [facility] Adult Primary Care - [address] [address] Carrington Calderon MD [address] [phone] 02/27/2024 8:30 EDT Telemedicine [facility] Sleep Program - [address] [address]75[address] Dwight Colbert [address] [place] [phone] 02/29/2024 10:30 EDT Appointment [facility] Radiology Nuclear Medicine and PET [address] [id number] 02/29/2024 14:30 EDT Appointment [facility] Radiology Nuclear Medicine and PET [address] [id number] 03/01/2024 8:00 EDT Appointment [facility] Radiology Nuclear Medicine and PET [address] [id number] 03/01/2024 9:30 EDT Appointment [facility] Radiology Nuclear Medicine and PET [address] [phone] documented as of this encounter Procedures Procedure Name Priority Date/Time Associated Diagnosis Comments SED RATE Routine 09/27/2006 10:36 EDT COMPLETE BLOOD COUNT AND DIFFERENTIAL Routine 09/27/2006 10:36 EDT COMPREHENSIVE METABOLIC PANEL (CMP) Routine 09/27/2006 10:36 EDT documented in this encounter Results * (ABNORMAL) SED. RATE:MARLYN (09/27/2006 10:36 EDT) Pathologist [facility] Sed. Rate Marlyn 47(H) 0 - 20 mm/hr [facility] Comment: Note: Sample greater than 4 hrs old (but less than 12 hrs) when tested. If refrigerated, sample is stable when tested within 12 hours of collection. 09/27/2006 10:3 6 EDT 09/27/2006 16:29 EDT Fermin Lovett MD HEMATOLOGY & P F4 ORDERABLES [facility] [address] [place] [address] * (ABNORMAL) COMPREHENSIVE METABOLIC PANEL (09/27/2006 10:36 EDT) Pathologist [facility] Potassium 4.3 3.5 - 5.0 mEq/L RODRIGUEZ [...] OOD GAS ORDERABLES [facility] [address] [place] [address] * (ABNORMAL) HEMAGRAM AND DIFFERENTIAL (09/27/2006 10:36 [...] & DNA PROBE ORDERABLES Performing Organization Address City/State/[facility] Co de Phone Number [facility] [address] [place] [address] documented in this encounter Visit Diagnoses Not on filedocumented in this encounter Additional Health Concerns Infection Onset Date Last Indicated Resolved Time R/O COVID-19 08/04/2020 08/04/2020 08/04/2020 11:4 0 EST documented as of this encounter
--- OUTSIDE RECORDS SUMMARY | 2024-02-10 01:30 | XMS_ITS | Encounter Summary ---
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 For hobbies, she enjoys [...] 5 feet 4 inches and her weight [id number]. On examination of the patients anterior chest, [...] that the procedure was done as a [id number] admission with general anesthesia and that the [...] - Erich Ross MD A - [facility] Job ID: [id number] Document ID: [id number] cc: JUNE Plata MD documented in this encounter Plan of Treatment Upcoming Encounters Date Type Department Care Team (Late st Contact Info) Description 02/21/2024 9:45 EDT Office Visit [facility] Adult Primary Care - [address] [address] Carrington Calderon MD [address] [phone] 02/27/2024 8:30 EDT Telemedicine [facility] Sleep Program - [address] [address] ColbertDwight garner [address] [place] [phone] 02/29/2024 10:30 EDT [facility] Radiology Nuclear Medicine and PET - [address] [id number] 02/29/2024 14:30 EDT [facility] Radiology Nuclear Medicine and PET - [address] [id number] 03/01/2024 8:00 EDT [facility] Radiology Nuclear Medicine and PET - [address] [phone] 03/01/2024 9:30 EDT [facility] Radiology Nuclear Medicine and PET - [address] [phone] documented as of this encounter Visit Diagnoses Not on filedocumented in this encounter
--- OUTSIDE RECORDS SUMMARY | 2024-02-10 01:30 | XMS_ITS | Encounter Summary ---
Author Organization [facility] Address [address] [place] [address] Care Team Providers Care Information Systems Security Officer Name Role Phone Jasmin Jara Primary Care Provider Unavail able Encounter Details Date Type Department Care Team (Late st Contact Info) Description 05/05/2010 Results Only [facility] Laboratory Services - [facility] ([facility]) [address] [place] [id number] Ann Booker MD [address] [place] [address] [phone] Social History Tobacco Use Types Packs/Day Years [...] [facility] Adult Primary Care - [address] [address] Carrington Calderon MD [address] [phone] 02/27/2024 8:30 EDT Telemedicine [facility] Sleep Program - [address] [phone] Dwight Colbert [address] [place] [address] 02/29/2024 10:30 EDT Appointment [facility] Radiology Nuclear Medicine and [address] [address] 02/29/2024 14:30 EDT Appointment [facility] Radiology Nuclear [facility] and [address] [address] 03/01/2024 8:00 EDT Appointment [facility] Radiology Nuclear Medicine and PET [address] [address] 03/01/2024 9:30 EDT Appointment [facility] Radiology [facility] and [address] [address] documented as of this encounter Procedures Procedure [...] ? CRISTY TALBOT ? Accession #: ? [id number] ? : ? 1985 (Age: 25) ??F [...] MD PATHOLOGY ORDERABLES [facility] [address] [place] [address] documented in this encounter Visit Diagnoses Not on filedocumented in this encounter Care Teams Information Systems Security Officer Relationship Specialty Start Date End Date Jasmin Jara PA PCP - General 10/06/09 05/09/10 documented as of this encounter
--- OUTSIDE RECORDS SUMMARY | 2024-02-10 01:30 | XMS_ITS | Encounter Summary ---
Author Organization [facility] Address [address] [place] [address] Care Team Providers Care Textile Machinery Instructor Name Role Phone None, Provider Primary Care Provider Unavailabl e Encounter Details Date Type Department Care Team (Late st Contact Info) Description 02/11/[address] [facility] [phone] [address] [address] Social History Tobacco Use Types [...] [facility] - [address] [phone] Carrington Calderon MD [address] [phone] 02/27/2024 8:[address] [facility] Sleep Program - [address] [phone] Dwight Colbert [address] [place] [address] 02/29/2024 10:30 EDT Appointment [facility] Radiology Nuclear Medicine and PET [address] [id number] 02/29/2024 14:30 EDT Appointment [facility] Radiology Nuclear Medicine and PET [address] [id number] 03/01/2024 8:00 EDT Appointment [facility] Radiology Nuclear Medicine and PET [address] [id number] 03/01/2024 9:30 EDT Appointment [facility] Radiology Nuclear Medicine and PET [address] [address] documented as of this encounter Procedures Procedure Name Priority Date/Time Associated Diagnosis Comments BLOOD TYPE FOR PRENATALS- AMBULATORY Routine 02/11/2015 14:34 EDT ANTIBODY SCREEN- AMBULATORY ORDER ONLY Routine 02/11/2015 14:34 EDT documented in this encounter Results * ANTIBODY SCREEN- AMBULATORY ORDER ONLY (02/11/2015 14:34 EDT) Antibody Screen Neg 02/11/2015 22:52 EDT [facility] BLOOD SPECIMEN / Unknown 02/11/2015 14:34 EDT 02/11/2015 20:49 EDT Alaina Miranda [facility] BLOOD BANK TESTS [facility] [address] [place] [address] * BLOOD TYPE FOR PRENATALS- AMBULATORY (02/11/2015 14:34 EDT) ABO and Rh Type B NEG 02/11/2015 22:52 EDT [facility] BLOOD SPECIMEN / Unknown 02/11/2015 14:34 EDT 02/11/2015 20:49 EDT Alaina Miranda CNM BLOOD BANK ORDERABLE S [facility] [address] [place] [address] documented in this encounter Visit Diagnoses Not on filedocumented in this encounter Care Teams Textile Machinery Instructor Relationship Specialty Start Date End Date None, Provider PCP - General 01/01/15 08/27/15 documented as of this encounter
--- OUTSIDE RECORDS SUMMARY | 2024-02-10 01:30 | XMS_ITS | Encounter Summary ---
Author Organization [facility] Address [address] [place] [address] Care Team Providers Care Sheet Ironworker Name Role Phone Unavailable Primary Care Provider Unavailabl e Encounter Details Date Type Department Care Team (Latest Contact Info) Description 06/22/2006 14:50 EST Hospital Encounter [facility] - Other [address] [place] [address] Broderick Ross MD Discharge Disposition: Auto Discharge [...] Visit [facility] Adult Primary Care - [address] [address] Carrington Calderon MD [address] [phone] 02/27/2024 8:30 EDT Telemedicine [facility] Sleep Program - [address] [phone] Dwight Colbert [address] [place] [address] 02/29/2024 10:30 EDT Appointment edical Center Radiology Nuclear Medicine and PET - [address] [address] 02/29/2024 14:30 EDT Appointment edical Center Radiology Nuclear Medicine and PET - [address] [address] 03/01/2024 8:00 EDT Appointment edical Center Radiology Nuclear Medicine and PET - [address] [address] 03/01/2024 9:30 EDT [facility]ointment [facility] Rad[facility] Nuclear Medicine and PET - [address] [address] documented as of this encounter Visit Diagnoses Not on filedocumented in this encounter
--- OUTSIDE RECORDS SUMMARY | 2024-02-10 01:30 | XMS_ITS | Encounter Summary ---
Author Organization [facility] Address [address] [place] [address] Care Team Providers Care Plateman Name Role Phone Jasmin Jara Primary Care Provider Unavail able Encounter Details Date Type Department Care Team (Late st Contact Info) Description 10/20/2009 Abstract [facility] Plastic, Reconstructive & Cosmetic Surgery - [address], [address] [place] [address] Jasmin Jara PA Social History Tobacco Use [...] [facility] Adult [facility] Care - [address] [phone] Carrington Calderon MD [address] [phone] 02/27/2024 8:30 EDT Telemedicine [facility] Sleep Program - [address] [phone] Dwight Colbert [address] [place], [place] [address] 02/29/2024 10:30 EDT Appointment edical Center Radiology Nuclear Medicine and PET - [address] [address] 02/29/2024 14:30 EDT Appointment [facility] Center Radiology Nuclear Medicine and PET [address] [address] 03/01/2024 8:00 EDT Appointment [facility] Radiology Nuclear Medicine and PET [address] [address] 03/01/2024 9:30 EDT Appointment [facility] Radiology Nuclear Medicine and PET [address] [address] documented as of this encounter Visit Diagnoses Not on filedocumented in this encounter Care Teams Plateman Relationship Specialty Start Date End Date Jasmin Jara PA PCP - General 10/06/09 05/09/10 documented as of this encounter
--- OUTSIDE RECORDS SUMMARY | 2024-02-10 01:30 | XMS_ITS | Encounter Summary ---
Author Organization [facility] Address [address] [place] [address] Care Team Providers Care Kohinoor Operator Name Role Phone None, Provider Primary Care Provider Unavailabl e Reason for Visit * Reason Comments Foot Injury States a log fell on her left foot about 1 hour ago while swimming. + pain, swelling, tingling, and numbness. Unable to walk on foot. 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 Encounter Details Date Type Department Care Team (Late st Contact Info) Description 01/01/2015 0:26 EDT - 01/01/2015 2:25 EDT Emergency [facility] Emergency Department - [address] [phone] Kylah Whitaker PA-C [address] [place] [address], Level [address] [place] [address] Emergency, MD Ekaterina Contusion of [...] be sent through Care Everywhere. * BRUISES (WELSH) documented in this encounter Medications at Time [...] Unable to walk on foot. 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 HPI [...] - Abnormal Glucose, Fingerstick 152 (*) Final Auto Rebuilder ID [id number] Final POCT GLUCOSE Procedures ED COURSE A [...] Visit [facility] Adult Primary Care - [address] [address] Carrington Calderon MD [address] [phone] 02/27/2024 8:30 EDT Telemedicine [facility] Sleep Program - [address] [phone] Dwight Colbert [address] [place] [phone] 02/29/2024 10:30 EDT Appointment edical Center Radiology Nuclear Medicine and PET - [address] [phone] 02/29/2024 14:30 EDT [facility]ointment [facility] Radiology Nuclear Medicine and PET [address] [phone] 03/01/2024 8:00 EDT Appointment [facility] Radiology Nuclear Medicine and PET - [address] [phone] 03/01/2024 9:30 EDT Appointment [facility] Radiology Nuclear Medicine and [address] [address] documented as of this encounter Procedures Procedure [...] 70 - 100 mg/dl 01/01/2015 0:56 EDT [facility] SERVICES Auto Rebuilder ID [id number] 01/01/2015 0:56 EDT [facility] Comment:Test Performed by Nu rsing Services BLOOD SPECIMEN / Unknown 01/01/2015 0:53 EDT 01/01/2015 0:56 EDT Provider Unknown MD CHEMISTRY & BLOOD GA S ORDERABLES [facility] [address] [place] [address] documented in this encounter Visit Diagnoses Diagnosis [...] 01/01/2015 documented in this encounter Care Teams Kohinoor Operator Relationship Specialty Start Date End Date None, Provider PCP - General 01/01/15 08/27/15 documented as of this encounter
--- OUTSIDE RECORDS SUMMARY | 2024-02-10 01:30 | XMS_ITS | Encounter Summary ---
Author Organization [facility] Address [address] [place] [address] Care Team Providers Care Fashion Model Name Role Phone None, Provider Primary Care Provider Unavailabl e Reason for Visit * Reason Comments Cough Encounter Details Date Type Department Care Team (Latest Contact Info) Description 03/08/2016 14:28 EDT - 03/08/2016 16:55 EDT Hospital Encounter [facility] Urgent Care - [address] [address] Scar Marquez MD 0 [place] [phone] Unknown, ProviderMD Leukocytosis, unspecified type (Primary Dx); [...] - 03/08/2016 1654 EDT Report given to [place] [facility] patient transported to [facility] ED for further evaluation IV infusing. [...] the legs or lungs. She has used lyne-ecs-uwkwctm Robitussin and Tylenol with little improvement. She [...] She did take a plane ride to [place] in January of this year. She has [...] 09/04/201502/18, 08/19. Followed by [facility] ??? Family history of rheumatoid arthritis 09/04/2015 Mother, pt with chronic back pain. Told arthritis in spine in teen yrs. ??? Type 2 diabetes mellitus 09/03/2015 Dx approx age 25. Controlled with lifestyle behaviors, wt loss. Had taken lantus in past 80u, Followed by endocrine in [facility]. Stopped few yrs ago until this past month. ??? Anxiety and depression 05/12/2010 Onset teen yrs. Treated with citalopram in approx 2012 - had SI, treated at [place]. Marijuana prn to help with stress/anxiety sx. [...] Neg Neg Ketones Trace (A) Neg Specific [place] >=1.030 1.001 - 1.035 Blood 1+ (A) Neg pH 5.5 4.6 - 8.0 Protein Trace (A) Neg Urobilinogen 0.2 0.2 - 1.0 E.U./dl Nitrite Neg Neg Leuk Esterase Neg Neg Tech ID [id number] Radiology orders: None Imaging Results CHEST PA [...] preliminary report dictated by Dr. Madhuri Wolf, radiology administrator, and has not been finalized by an [...] preliminary report dictated by Dr. Madhuri Wolf, radiology administrator, and has not been finalized by an [...] preliminary report dictated by Dr. Madhuri Wolf, radiology administrator, and has not been finalized by an [...] other diagnoses. She is transferred to the [facility] emergency department now in stable condition. [...] of further medications. Upon departure from [facility], the patient's pain was 9 on a zero to ten scale. Condition at departure from the [facility] : Stable MDM Signed: [...] Shea RN - 03/08/2016 1433 EDT Bed: [facility] Expected date: Expected time: Means of arrival: Comments: HOLD documented in this encounter Plan of Treatment Upcoming Encounters Date Type Department Care Team (Late st Contact Info) Description 02/21/2024 9:45 EDT Office Visit [facility] Adult Primary Care - [address] [phone] Carrington Calderon MD [address] [place] [phone] 02/27/2024 8:30 EDT Telemedicine [facility] Sleep Program - [address] 004261 Dwight Colbert [address] [place], [place] [address] 02/29/2024 10:[address] [facility] Radiology Nuclear Medicine and PET - [address] [address] 02/29/2024 14:[address] [facility] Radiology Nuclear Medicine and PET - [address] [address] 03/01/2024 8:[address] [facility] Radiology Nuclear Medicine and PET - [address] [address] 03/01/2024 9:[address] [facility] Radiology Nuclear Medicine and PET [address] [address] documented as of this encounter Procedures Procedure [...] 9:47 EDT) 03/10/2016 9:47 EDT Scan 2 Placer Miner PROCEDURE/MINOR BRAULIO GICAL ORDERABLES * ED/URGENT CARE ADD-ON (03/09/2016 13:00 EDT) Tests to be added URINE TEST 03/09/2016 12:58 EDT [facility] Number for problems [id number] (URGENT CARE) 03/09/2016 12:58 EDT [facility] Comment:Performed at [facility], [place], [place] TOPOGRAPHY UNKNOWN / Unknown 03/09/2016 13:00 EDT 03/09/2016 13:07 EDT Scar Marquez MD HEMATOLOGY & PF4 O RDERABLES Performing Organization Address City/[facility] Co de Phone Number [facility] [address] [place] [address] * TEST, URINE (03/08/2016 16:25 EDT) Result- Test, Ur Neg Neg 03/09/2016 13:15 EDT [facility] Comment: NOTE: False negative results may occur in women who are beyond 5-8 weeks gestation. Diagnosis of should be based on a correlation of test results with typical clinical signs and symptoms. Performed at [facility], [place], [place] URINE / Unknown 03/08/2016 1 6:25 EDT 03/09/2016 13:06 EDT Scar Marquez MD URINALYSIS ORDERAB LES Performing Organization Address City/[facility]/ZIP Co de Phone Number [facility] [address] [place] [address] * (ABNORMAL) URINE MICROSCOPIC ONLY (03/08/2016 16:25 EDT) WBC, UA less than 1 0 - 5 /HPF 03/08/2016 17:24 EDT [facility] RBC, UA less than 1 0 - 5 /HPF 03/08/2016 17:24 [facility] Squam Epithel, UA Many(A) None seen /HPF 03/08/2016 17:24 [facility] Renal Epithel, UA None seen None seen /HPF 03/08/2016 17:24 EDT [facility] Bacteria, UA None seen None seen /HPF 03/08/2016 17:24 EDT [facility] Crystals, UA None seen /HPF 03/08/2016 17:24 [facility] Hyaline Casts, UA None seen /LPF 03/08/2016 17:24 [facility] UA Comment Microscopic results 03/08/2016 16:31 [facility] Comment: are unreliable on urines unrefrig >2hrs or refrig >8hrs. Mucus, UA Present 03/08/2016 17:24 T [facility] Comment:Performed at [facility] [place], [place] Urine specimen (specimen) URINE / Unknown 03/08/2016 16:25 EDT 03/08/2016 16:57 EDT Scar Marquez MD URINALYSIS ORDERAB LES [facility] [address] [place] [address] * (ABNORMAL) POCT URINE DIPSTICK (03/08/2016 16:25 EDT) Color DARK YELLOW 03/08/2016 16:27 T [facility] Clarity, UA Clear 03/08/2016 16:27 T [facility] Glucose 2+(A) Neg 03/08/2016 16:27 [facility] Bilirubin Neg Neg 03/08/2016 16:27 T [facility] Ketones Trace(A) Neg 03/08/2016 16:27 T [facility] Specific [place] >=1.030 1.001 - 1.035 03/08/2016 16:27 EDT [facility] Blood 1+(A) Neg 03/08/2016 16:27 EDT [facility] pH 5.5 4.6 - 8.0 03/08/2016 16:27 EDT [facility] Protein Trace(A) Neg 03/08/2016 16:27 EDT [facility] Urobilinogen 0.2 0.2 - 1.0 E.U./dl 03/08/2016 16:27 EDT [facility] Nitrite Neg Neg 03/08/2016 16:27 EDT [facility] Leuk Esterase Neg Neg 03/08/2016 16:27 EDT [facility] borough coordinator ID [id number] 03/08/2016 16:27 EDT [facility] Comment:Test performed at [facility] in [facility] Urine specimen (specimen) URINE / Unknown 03/08/2016 16:25 EDT 03/08/2016 16:27 EDT Scar Marquez MD POINT OF CARE TEST ORDERABLES [facility] [address] [place] [address] * EKG 12-LEAD (03/08/2016 16:14 EDT) 03/08/2016 16:1 4 EDT Narrative [facility] E[facility] - 03/08/2016 16:24 EDT ? PC Site ? Test Date: ?2016-03-08 Pat Name: ? CRISTY WALKER ? [facility] ? Room: ? 06 Gender: ? F ?Director Of Music: ?? : ?1985 ? Requested By: JOHNNY Alonzo Order Number: [id number] ? Reading MD: ?? SCAR MARQUEZ MD ? Measurements Intervals ?[place] ? Rate: ? 124 ?P: ?50 AK: ? 130 ?QRS: ?27 QRSD: ? 92 [...] Date: 2016-03-08 Pat Name: CRISTY TALBOT Department: [facility] Room: Gender: F Director Of Music: : 1985 Requested By: JOHNNY Alonzo Order Number: [id number] Reading MD: SCAR MARQUEZ MD Measurements Intervals [place] Rate: 124 P: 50 AK: 130 QRS: 27 QRSD: 92 T: -14 [...] DEJESUS. Scar Marquez MD CARDIAC ECG ORDERA [facility] EKG * CHEST PA AND LATERAL [...] preliminary report dictated by Dr. Madhuri Wolf, radiology administrator, and has not been finalized by an [...] preliminary report dictated by Dr. Madhuri Wolf, radiology administrator, and has not been finalized by an attending radiologist. I have personally reviewed the images and the above interpretation and agree with the findings. Scar Marquez MD IMG DIAGNOSTIC LAN GING ORDERABLES * D-DIMER (03/08/2016 15:10 EDT) D-Dimer <200 <230 ng/mL 03/08/2016 15:50 EDT [facility] Comment: CUTOFF VALUE FOR THE EXCLUSION OF DVT and PE: 230 ng/mL D-dimer units Any use of the age-adjusted cutoff value is a post-analytic modification of this FDA-approved test and is considered off-label use of the test result. [facility] laboratory does not have literature to support the validity of an age-adjusted cutoff for our specific assay. Performed at [place], [place] Blood specimen (specimen) BLOOD SPECIMEN / Unknown 03/08/2016 15:10 EDT 03/08/2016 15:38 EDT Scar Marquez MD HEMATOLOGY & PF4 O RDERABLES [facility] [address] [place] [address] * (ABNORMAL) COMPREHENSIVE METABOLIC PANEL (CMP) (03/08/2016 15:10 [facility]) Potassium 4.5 3.5 - 5.0 mEq/L 03/08/2016 16:07 [facility] Sodium 137 136 - 145 mEq/L 03/08/2016 16:07 [facility] Chloride 99 96 - 110 mEq/L 03/08/2016 16:07 [facility] CO2 27 24 - 32 mEq/L 03/08/2016 16:07 [facility] Total Alkaline Phosphatase 122 38 - 126 U/L 03/08/2016 16:07 [facility] Bilirubin, Total <0.5 <1.4 mg/dl 03/08/20 16 16:07 [facility] AST 16 15 - 46 U/L 03/08/2016 16:07 [facility] ALT 17 <53 U/L 03/08/2016 16:07 [facility] Albumin 3.9 3.4 - 4.9 g/dl 03/08/2016 16:07 [facility] Total Protein 7.1 6.3 - 8.2 g/dl 03/08/2016 16:07 [facility] Creatinine 0.50(L) 0.52 - 1.04 mg/dl 03/08/2016 16:07 [facility] GFR, Calculated 130 >60 ml/min/1.7 3m2 03/08/2016 16:07 [facility] Comment: eGFR calculated using CKD-EPI equation for non Americans. Multiply eGFR by 1.16 for Americans. BUN 9(L) 10 - 26 mg/dl 03/08/2016 16:07 [facility] Calcium 9.7 8.5 - 10.5 mg/dl 03/08/2016 16:07 [facility] Calculated Calcium 10.2 8.5 - 10.5 mg/dl 03/08/2016 16:07 [facility] Glucose, Serum 278(H) 70 - 100 mg/dl 03/08/2016 16:07 [facility] Fasting? Unknown 03/08/2016 15:39 [facility] Comment:Performed at [facility], [place], [place] Blood specimen (specimen) BLOOD SPECIMEN / Unknown 03/08/2016 15:10 EDT 03/08/2016 15:38 EDT Scar Marquez MD CHEMISTRY & BLOOD GAS ORDERABLES [facility] [address] [place] [address] * (ABNORMAL) HEMAGRAM AND DIFFERENTIAL (03/08/2016 15:10 EDT) WBC 21.39(H) 4.0 - 12.4 K/cmm 03/08/2016 15:50 [facility] RBC 4.87 3.86 - 5.04 M/cmm 03/08/2016 15:50 [facility] Hemoglobin 15.2 11.6 - 15.2 gm/dl 03/08/2016 15:50 [facility] HCT 42.5 34.9 - 44.4 % 03/08/2016 15:50 [facility] MCV 87 81 - 98 fl 03/08/2016 15:50 [facility] MCH 31.2 26.7 - 33.3 pg 03/08/2016 15:50 [facility] MCHC 35.8 32.1 - 35.9 gm/dl 03/08/2016 15:50 [facility] RDW-CV 12.4 11.7 - 14.6 % 03/08/2016 15:50 [facility] RDW-SD 39.1 37.6 - 50.3 fl 03/08/2016 15:50 [facility] PLT 407(H) 141 - 377 K/cmm 03/08/2016 15:50 [facility] MPV 10.2 9.5 - 12.7 fl 03/08/2016 15:50 [facility] Neutrophils 71.0 % 03/08/2016 16:07 [facility] % Bands 3.0 % 03/08/2016 16:07 [facility] Lymphocytes 19.0 % 03/08/2016 16:07 [facility] % Atyp Lymphs 1.0 % 03/08/2016 16:07 [facility] Monocytes 4.0 % 03/08/2016 16:07 [facility] Eosinophils 2.0 % 03/08/2016 16:07 [facility] ABS Neutrophils 15.19(H) 2.20 - 8.85 K/cmm 03/08/2016 16:07 [facility] ABS Bands 0.64 K/cmm 03/08/2016 16:07 [facility] ABS Lymphs 4.06(H) 1.09 - 3.30 K/cmm 03/08/2016 16:07 [facility] ABS Atyp Lymphs 0.21 K/cmm 6 16:07 [facility] ABS Monocytes 0.86(H) 0.1 - 0.8 K/cmm 03/08/2016 16:07 [facility] ABS Eosinophils 0.43 0.03 - 0.61 K/cmm 03/08/2016 16:07 [facility] Type of Diff: Manual 03/08/2016 16:07 [facility] Comment:Performed at [place], [place] Blood specimen (specimen) BLOOD SPECIMEN / Unknown 03/08/2016 15:10 EDT 03/08/2016 15:38 EDT Scar Marquez MD PACKAGES & DNA PRO BE ORDERABLES [facility] [address] [place] [address] * RAPID STREP (03/08/2016 14:40 EDT) Rapid Strep A Screen Neg 03/08/2016 15:09 [facility] Comment:Performed at [place], [place] Specimen of unknown material (specimen) TOPOGRAPHY UNKNOWN / Unknown 03/08/2016 14:40 EDT 03/08/2016 14:58 EDT Scar Marquez MD MICROBIOLOGY - GEN ERAL ORDERABLES Performing Organization Address City/[facility]/ZIP Co de Phone Number [facility] [address] [place] [address] * PHARYNGITIS CULTURE (03/08/2016 14:40 EDT) Result No group A beta streptococci isolated. Usual devin-pharyngeal candis. 03/10/2016 8:14 EDT [facility] Specimen of unknown material (specimen) ENTIRE THROAT / Unknown 03/08/2016 14:40 EDT 03/08/2016 19:07 EDT Comment:Specimen submitted o n a flocked swab. Scra Marquez MD MICROBIOLOGY - GEN ERAL ORDERABLES Performing Organization Address [facility] Co de Phone Number [facility] [address] [place] [address] documented in this encounter Visit Diagnoses Diagnosis [...] 03/08/2016 documented in this encounter Care Teams Fashion Model Relationship Specialty Start Date End Date None, Provider PCP - General 03/08/16 08/21/18 documented as of this encounter
--- OUTSIDE RECORDS SUMMARY | 2024-02-10 01:30 | XMS_ITS | Encounter Summary ---
Author Organization [facility] Address [address] [place] [address] Care Team Providers Care Stringed Instrument Tuner Name Role Phone Madeline Caputo Primary Care Provider [phone] Reason for Visit * Reason Comments Blood Sugar Problem NPD Encounter Details Date Type Department Care Team (Latest Contact Info) Description 05/12/2010 15:00 EST Office Visit [facility] Endocrinology - [facility] [address] [place], [place] [id number] Fermin Srinivasan MD [address] [place] [address] [address] [place] [address] Diabetes (CMS-HCC) ([facility]) (Primary Dx); Obesity, unspecified Social History Tobacco [...] - 05/12/2010 17:03 EST Recent A1c from [facility] 7.7%. Goal will be less than [...] other times similar or higher. Went to [facility] ER 05/10/10 because of BG 335. [...] 4 siblings, knows about 2, noDM. 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 Very unusual alcohol Activity - [...] tryand work on lifestyle. Seeing dietition ion [facility] next week. Will come back in June. If continues with inadequate control, will consider GLP-1 receptor agonist versus basal insulin. Would not suggest TZD, as potential for weight gain in her is considerable. Plan: Recent A1c from [facility] 7.7%. Goal will be less than [...] [facility] Adult Primary Care - [address] [phone] Carrington Calderon MD 1 [facility] [address] [place] [address] 02/27/2024 8:30 EDT Telemedicine [facility] Sleep Program - [address] [phone] Dwight Colbert [address] [place] [phone] 02/29/2024 10:30 EDT Appointment [facility] Radiology Nuclear Medicine and PET [address] [phone] 02/29/2024 14:30 EDT Appointment [facility] Radiology Nuclear Medicine and PET [address] [phone] 03/01/2024 8:00 EDT Appointment [facility] Radiology Nuclear Medicine and PET [address] [phone] 03/01/2024 9:30 EDT Appointment [facility] Radiology Nuclear Medicine and PET [address] [phone] Scheduled Orders Name Type Priority Associated Diagnoses Orde r Schedule POCT HEMOGLOBIN A1C Point of Care Testing Routine Diabetes ([facility]) ([facility]) Ordered: 05/12/2010 documented as of this encounter Visit Diagnoses Diagnosis Diabetes ([facility])- Primary Type II or unspecified type diabetes mellitus without mention of complication, not stated as uncontrolled Obesity, unspecified documented in this encounter Care Teams Stringed Instrument Tuner Relationship Specialty Start Date End Date Madeline Caputo PA [address] [place] [address] PCP - General 05/10/10 12/31/14 documented as of this encounter
--- OUTSIDE RECORDS SUMMARY | 2024-02-10 01:30 | XMS_ITS | Encounter Summary ---
Author Organization [facility] Address [address] [place] [address] Care Team Providers Care Model And Mold Maker Name Role Phone None, Provider Primary Care Provider Unavailabl e Encounter Details Date Type Department Care Team (Late st Contact Info) Description 02/11/2015 13:08 EDT - 02/11/2015 13:09 EDT Hospital Encounter [facility] - [address] [address] Alaina Miranda, [address] [phone] Sunday Miranda MD [address] JOSEPH [address] [place] [phone] [...] [facility] Adult Primary Care - [address] [address] Carrington Calderon MD [address] [phone] 02/27/2024 8:30 EDT Telemedicine [facility] Sleep Program - [address] [address] Dwight Colbert [address] [place] [phone] 02/29/2024 10:30 EDT Appointment [facility] Radiology Nuclear Medicine and PET [address] [phone] 02/29/2024 14:30 EDT Appointment [facility] Radiology Nuclear Medicine and PET [address] 174081 03/01/2024 8:00 EDT Appointment [facility] Radiology Nuclear Medicine and PET [address] 212101 03/01/2024 9:30 EDT Appointment [facility] Radiology Nuclear Medicine and PET [address] 284211 documented as of this encounter Visit Diagnoses Not on filedocumented in this encounter Care Teams Model And Mold Maker Relationship Specialty Start Date End Date None, Provider PCP - General 01/01/15 08/27/15 documented as of this encounter
--- OUTSIDE RECORDS SUMMARY | 2024-02-10 01:30 | XMS_ITS | Encounter Summary ---
Author Organization [facility] Address [address] [place] [address] Care Team Providers Care Refinery Superintendent Name Role Phone Jasmin Jara Primary Care Provider Unavail able Encounter Details Date Type Department Care Team (Late st Contact Info) Description 02/16/2010 Abstract Used for ABSTRACTING Data [phone] Jasmin Jara PA Social History Tobacco Use [...] [facility] - [address] 577441 Carrington Calderon MD [address] [place] [phone] 02/27/2024 8:30 EDT Telemedicine [facility] Sleep Program - [address] 777691 Dwight Colbert [address] [place] [address] [phone] 02/29/2024 10:30 EDT Appointment [facility] [place] Radiology Nuclear Medicine and PET - [facility] [address] [place], [place] 907492 [phone] 02/29/2024 14:30 EDT Appointment [facility] Radiology Nuclear Medicine and PET [address] [address] 03/01/2024 8:00 EDT Appointment [facility] Radiology Nuclear Medicine and PET [address] [address] 03/01/2024 9:30 EDT Appointment [facility] Radiology Nuclear Medicine and PET [address] [address] documented as of this encounter Visit Diagnoses [...] 05/10/2010 added in this encounter Care Teams Refinery Superintendent Relationship Specialty Start Date End Date Jasmin Jara PA PCP - General 10/06/09 05/09/10 documented as of this encounter
--- OUTSIDE RECORDS SUMMARY | 2024-02-10 01:30 | XMS_ITS | Encounter Summary ---
Author Organization [facility] Address [address] [place] [address] Care Team Providers Care Radioactivity Technician Name Role Phone Nimisha Clifton AUDITOR TAX Primary Care Provider [phone] Encounter Details Date Type Department Care Team (Late st Contact Info) Description 09/03/2015 Results Only [facility] Adult Primary Care - [address] [phone] Nimisha Clifton, GUSTAVO [address] [phone] Social History Tobacco Use Types Packs/Day Years [facility] [address] [phone] Carrington Calderon MD [address] [phone] 02/27/2024 8:30 EDT Telemedicine [facility] Sleep Program - [address] [place] [address] [place] [address] Dwight Colbert [address] [place], [place] 916451 02/29/2024 10:30 EDT Appointment [facility] Radiology Nuclear Medicine and [address] [phone] 02/29/2024 14:30 EDT Appointment [facility] Radiology Nuclear Medicine and PET [address] [phone] 03/01/2024 8:00 EDT Appointment [facility] Radiology Nuclear Medicine and [address] [phone] 03/01/2024 9:30 EDT Appointment [facility] Radiology Nuclear [facility] and [address] [address] documented as of this encounter Procedures Procedure Name Priority Date/Time Associated Diagnosis Comments T4, FREE REFLEX Routine 09/03/2015 12:33 EDT documented in this encounter Results * T4, FREE REFLEX (09/03/2015 12:33 EDT) Free T4 1.3 0.8 - 1.8 ng/dl 09/03/2015 18:43 EDT [facility] BLOOD SPECIMEN / Unknown 09/03/2015 12:33 EDT 09/03/2015 13:37 EDT Nimisha Clifton NP CHEMISTRY & BLOOD GAS ORDERABLES [facility] [address] [place] [address] documented in this encounter Visit Diagnoses Not on filedocumented in this encounter Care Teams Radioactivity Technician Relationship Specialty Start Date End Date Nimisha Clifton NP 1 [facility] Level 1 [place] [phone] PCP - General 08/28/15 03/07/16 documented as of this encounter
--- OUTSIDE RECORDS SUMMARY | 2024-02-10 01:30 | XMS_ITS | Encounter Summary ---
Author Organization [facility] Address [address] [place] [address] Care Team Providers Care Chair Name Role Phone None, Provider Primary Care Provider Unavailabl e Encounter Details Date Type Department Care Team (Late st Contact Info) Description 08/01/2015 10:45 EST - 08/01/2015 10:46 EST Hospital Encounter [address] [address] Kamini Vega MD 111 [facility] 4 [place] [phone] Discharge Disposition: Home or Self Care Social [...] [facility] Adult Primary Care - [address] [address] Carrington Calderon MD [address] [phone] 02/27/2024 8:30 EDT Telemedicine [facility] Sleep Program - [address] [address] Dwight Colbert [address] [place] [address] 02/29/2024 10:30 EDT Appointment [facility] Radiology Nuclear Medicine and PET - [address] 517131 02/29/2024 14:30 EDT Appointment [facility] Radiology Nuclear Medicine and PET [address] [id number] 03/01/2024 8:00 EDT Appointment [facility] Radiology Nuclear Medicine and PET [address] 989401 03/01/2024 9:30 EDT Appointment [facility] Radiology Nuclear Medicine and PET [address] [address] documented as of this encounter Visit Diagnoses Not on filedocumented in this encounter Care Teams Chair Relationship Specialty Start Date End Date None, Provider PCP - General 01/01/15 08/27/15 documented as of this encounter
--- OUTSIDE RECORDS SUMMARY | 2024-02-10 01:30 | XMS_ITS | Encounter Summary ---
Author Organization [facility] Address [address] [place] [address] Care Team Providers Care Enterprise Account Manager Name Role Phone Peytonjuan Nimisha Kelly FUNDER Primary Care Provider [phone] Encounter Details Date Type Department Care Team (Late st Contact Info) Description 09/03/2015 Phlebotomy Only [facility] - [address] [address] Honing Job Setter, Outpatient Type 2 diabetes mellitus without complication [...] [facility] - [address] [phone] Carrington Calderon MD [address] [phone] 02/27/2024 8:30 EDT Telemedicine [facility] Sleep Program - [address] [phone] Dwight Colbert [address] [place] [address] 02/29/2024 10:30 EDT Appointment [facility] Radiology Nuclear Medicine and PET - [address] [address] 02/29/2024 14:30 EDT Appointment [facility] Radiology Nuclear Medicine and PET [address] 777251 03/01/2024 8:00 EDT Appointment [facility] Radiology Nuclear Medicine and PET [address] [phone] 03/01/2024 9:30 EDT Appointment [facility] Radiology Nuclear Medicine and PET [address] [address] documented as of this encounter Procedures Procedure Name Priority Date/Time Associated Diagnosis Comments THYROID CASCADE Routine 09/03/2015 12:33 EDT Tachycardia Depression, unspecified depression type HEMOGLOBIN A1C Routine 09/03/2015 12:33 EDT Type 2 diabetes mellitus without complication ([facility]) ([facility]) COMPREHENSIVE METABOLIC PANEL (CMP) Routine 09/03/2015 12:33 EDT Type 2 diabetes mellitus without complication ([facility]) ([facility]) documented in this encounter Results * (ABNORMAL) THYROID CASCADE (09/03/2015 12:33 EDT) TSH 0.48(L) 0.55 - 4.78 uIU/ml 09/03/2015 18:19 EDT [facility] Comment: TSH cascade is not recommended for patients in which pituitary or hypothalamic disorders are suspected. Blood specimen (specimen) BLOOD SPECIMEN / Unknown 09/03/2015 12:33 EDT 09/03/2015 13:37 EDT Nimisha Clifton NP CHEMISTRY & BLOOD GAS ORDERABLES Performing Organization Address City/State/[facility] Co de Phone Number [facility] [address] [place] [address] * HEMOGLOBIN A1C (09/03/2015 12:33 EDT) Pathologist [facility] Hemoglobin A1C 8.8 % 09/03/2015 14:56 [facility] Comment: Reference Range: <5.7% Normal 5.7-6.4% Increased risk for diabetes =>6.5% Diagnostic for diabetes (if confirmed) The A1c goal for non adults in general is <7%. The A1c goal for selected patients may be significantly lower than 7% if this can be achieved without significant hypoglycemia or other adverse effects of treatment. Est Avg Glucose 206 mg/dl 6 14:56 [facility] Comment: eAG represents the A1c result expressed as average glucose in mg/dl. Blood specimen (specimen) BLOOD SPECIMEN / Unknown 09/03/2015 12:33 EDT 09/03/2015 13:37 EDT Nimisha Clifton NP CHEMISTRY & BLOOD GAS ORDERABLES Performing Organization Address [facility] Co de Phone Number [facility] [address] [place] [address] * (ABNORMAL) COMPREHENSIVE METABOLIC PANEL (CMP) (09/03/2015 12:33 EDT) [facility] Potassium 4.1 3.5 - 5.0 mEq/L 09/03/2015 14:15 [facility] Sodium 141 136 - 145 mEq/L 09/03/2015 14:15 [facility] Chloride 101 96 - 110 mEq/L 09/03/2015 14:15 [facility] CO2 29 24 - 32 mEq/L 09/03/2015 14:15 [facility] Total Alkaline Phosphatase 84 38 - 126 U/L 09/03/2015 14:15 [facility] Bilirubin, Total <0.5 <1.4 mg/dl 09/03/19 16 14:15 [facility] AST 19 15 - 46 U/L 09/03/2015 14:15 [facility] ALT 33 <53 U/L 09/03/2015 14:15 [facility] Albumin 3.9 3.4 - 4.9 g/dl 09/03/2015 14:15 [facility] Total Protein 6.6 6.3 - 8.2 g/dl 09/03/2015 14:15 [facility] Creatinine 0.48(L) 0.52 - 1.04 mg/dl 09/03/2015 14:15 [facility] GFR, Calculated 132 >60 ml/min/1.7 3m2 09/03/2015 14:15 [facility] Comment: eGFR calculated using CKD-EPI equation for non Americans. Multiply eGFR by 1.16 for Americans. BUN 11 10 - 26 mg/dl 09/03/2015 14:15 [facility] Calcium 9.8 8.5 - 10.5 mg/dl 09/03/2015 14:15 [facility] Calculated Calcium 10.3 8.5 - 10.5 mg/dl 09/03/2015 14:15 [facility] Glucose, Serum 205(H) 70 - 100 mg/dl 09/03/2015 14:15 [facility] Fasting? No 09/03/2015 12:23 [facility] Blood specimen (specimen) BLOOD SPECIMEN / Unknown 09/03/2015 12:33 EDT 09/03/2015 13:37 EDT Nimisha Clifton NP CHEMISTRY & BLOOD GAS ORDERABLES [facility] [address] [place] [address] documented in this encounter Visit Diagnoses Diagnosis Type 2 diabetes mellitus without complication ([facility]) Type II or unspecified type diabetes mellitus without mention of complication, not stated as uncontrolled Tachycardia Tachycardia, unspecified Depression, unspecified depression type documented in this encounter Care Teams Enterprise Account Manager Relationship Specialty Start Date End Date Nimisha Clifton NP 1 [facility] Level 1 [place] [address] PCP - General 08/28/15 03/07/16 documented as of this encounter
--- OUTSIDE RECORDS SUMMARY | 2024-02-10 01:30 | XMS_ITS | Encounter Summary ---
Author Organization [facility] Address [address] [place] [address] Care Team Providers Care Chemistry Quality Control Technician Name Role Phone Unavailable Primary Care Provider Unavailabl e Encounter Details Date Type Department Care Team (Latest Contact Info) Description 10/11/2006 10:03 EDT - 10/11/2006 11:59 EDT Hospital Encounter [facility]- [address] [address] Fermin Lovett MD Discharge Disposition: Auto Discharge [...] [facility] Adult Primary Care - [address] 329351 Carrington Calderon MD [address] [phone] 02/27/2024 8:30 EDT Telemedicine [facility] Sleep Program - [address] [address] Dwight Colbert [address] [place], [place] 190771 02/29/2024 10:30 EDT Appointment [facility] Radiology Nuclear Medicine and PET [address] [phone] 02/29/2024 14:30 EDT Appointment [facility] Radiology Nuclear Medicine and PET [address] [phone] 03/01/2024 8:00 EDT Appointment [facility] Radiology Nuclear Medicine and PET [address] [phone] 03/01/2024 9:30 EDT Appointment [facility] Radiology Nuclear Medicine and PET [address] [phone] documented as of this encounter Procedures Procedure [...]
--- OUTSIDE RECORDS SUMMARY | 2024-02-10 01:30 | XMS_ITS | Encounter Summary ---
Author Organization [facility] Address [address] [place] [address] Care Team Providers Care Club Steward Name Role Phone None, Provider Primary Care Provider Unavailabl e Encounter Details Date Type Department Care Team (Late st Contact Info) Description 07/23/2015 Results Only [facility]- [facility] [phone] Robyn Bautista MD [address] [place] [phone] Social History Tobacco Use Types Packs/Day Years [...] [facility] Adult Primary Care - [address] [phone] Carrington Calderon MD [address] [phone] 02/27/2024 8:30 EDT Telemedicine [facility] Sleep Program - [address] [phone] Dwight Colbert [address] [place] [address] 02/29/2024 10:30 EDT [facility]ointment [facility] Nuclear Medicine and PET - [address] [address] 02/29/2024 14:30 EDT Appointment [facility] Radiology Nuclear Medicine and PET [address] 127291 03/01/2024 8:00 EDT Appointment [facility] Radiology Nuclear Medicine and PET [address] [phone] 03/01/2024 9:30 EDT Appointment [facility] Radiology Nuclear Medicine and PET [address] 855191 documented as of this encounter Procedures Procedure Name Priority Date/Time Associated Diagnosis Comments PROGESTERONE Routine 07/23/2015 8:56 EST QUANT BETA HCG, Routine 07/23/2015 8:56 EST documented in this encounter Results * PROGESTERONE (07/23/2015 8:56 EST) Progesterone 9.5 ng/ml 07/23/2015 11:47 EST [facility] Comment: NON- FEMALES: follicular phase: ??<0.2-1.4 ng/mL luteal phase: 3.3-25.6 ng/ml postmenopausal: ??<0.2-0.7 ng/mL FEMALES: first trimester: 11.2-90.0 ng/ml second trimester: 25.6-89.4 ng/ml third trimester: 48.4-422.5 ng/ml ECTOPIC PREGNANCIES: consult pathologist BLOOD SPECIMEN / Unknown 07/23/2015 8:56 EST 07/23/2015 10:06 EST Robyn Bautista MD CHEMISTRY & BL OOD GAS ORDERABLES [facility] [address] [place] [address] * (ABNORMAL) HCG FOR (07/23/2015 8:56 EST) Quant Beta HCG, Preg 2,093(H) <5 mIU/ml 07/23/2015 10:55 EST [facility] Comment: Reference Range: Negative = <5 Indeterminate = 5-25 recommend repeat in 48 hours. Positive = >25 BLOOD SPECIMEN / Unknown 07/23/2015 8:56 EST 07/23/2015 10:06 EST Robyn Bautista MD CHEMISTRY & BL OOD GAS ORDERABLES [facility] [address] [place] [address] documented in this encounter Visit Diagnoses Not on filedocumented in this encounter Care Teams Club Steward Relationship Specialty Start Date End Date None, Provider PCP - General 01/01/15 08/27/15 documented as of this encounter
--- OUTSIDE RECORDS SUMMARY | 2024-02-10 01:30 | XMS_ITS | Encounter Summary ---
Author Organization [facility] Address [address] [place] [address] Care Team Providers Care Human Machine Interface Engineer Name Role Phone None, Provider Primary Care Provider Unavailabl e Encounter Details Date Type Department Care Team (Late st Contact Info) Description 07/23/2015 10:49 EST - 07/23/2015 10:50 EST Hospital Encounter [address] [address] Robyn Bautista MD [address] [place] [phone] Discharge Disposition: Home or Self Care Social [...] [facility] Adult Primary Care - [address] [address] Carrington Calderon MD 1 [facility] 1 [place] [phone] 02/27/2024 8:30 EDT Telemedicine [facility] Sleep Program - [address] 534561 Dwight Colbert [address] [place] [address] 02/29/2024 10:30 EDT Appointment [facility] Radiology Nuclear Medicine and PET - [address] 332131 02/29/2024 14:30 EDT Appointment [facility] Radiology Nuclear Medicine and PET [address] 459001 03/01/2024 8:00 EDT Appointment [facility] Radiology Nuclear Medicine and PET [address] [phone] 03/01/2024 9:30 EDT Appointment [facility] Radiology Nuclear Medicine and PET [address] [phone] documented as of this encounter Visit Diagnoses Not on filedocumented in this encounter Care Teams Human Machine Interface Engineer Relationship Specialty Start Date End Date None, Provider PCP - General 01/01/15 08/27/15 documented as of this encounter
--- OUTSIDE RECORDS SUMMARY | 2024-02-10 01:30 | XMS_ITS | Encounter Summary ---
Author Organization [facility] Address [address] [place] [address] Care Team Providers Care Machine Cloth Examiner Name Role Phone None, Provider Primary Care Provider Unavailabl e Encounter Details Date Type Department Care Team (Late st Contact Info) Description 08/01/2015 Results Only [facility]- [facility] [phone] Kamini Vega MD [address] [phone] Social History Tobacco Use Types Packs/Day Years [...] [facility] Adult Primary Care - [address] [phone] Carrington Calderon MD [address] [place] [phone] 02/27/2024 8:30 EDT Telemedicine [facility] Sleep Program - [address] [phone] Dwight Colbert [address] [place] [address] 02/29/2024 10:30 EDT Appointment [facility] Radiology Nuclear Medicine and PET - [address] 537381 02/29/2024 14:30 EDT Appointment [facility] Radiology Nuclear Medicine and PET [address] [phone] 03/01/2024 8:00 EDT Appointment [facility] Radiology Nuclear Medicine and PET [address] [phone] 03/01/2024 9:30 EDT Appointment [facility] Radiology Nuclear [facility] and PET [address] [phone] documented as of this encounter Procedures Procedure Name Priority Date/Time Associated Diagnosis Comments PROGESTERONE Routine 08/01/2015 9:38 EST documented in this encounter Results * PROGESTERONE (08/01/2015 9:38 EST) Progesterone 9.7 ng/ml 08/01/2015 19:37 EST [facility] Comment: NON- FEMALES: follicular phase: ??<0.2-1.4 ng/mL luteal phase: 3.3-25.6 ng/ml postmenopausal: ??<0.2-0.7 ng/mL FEMALES: first trimester: 11.2-90.0 ng/ml second trimester: 25.6-89.4 ng/ml third trimester: 48.4-422.5 ng/ml ECTOPIC PREGNANCIES: consult pathologist BLOOD SPECIMEN / Unknown 08/01/2015 9:38 EST 08/01/2015 17:36 EST Kamini Vega MD CHEMISTRY & BLOOD GA S ORDERABLES [facility] [address] [place] [address] documented in this encounter Visit Diagnoses Not on filedocumented in this encounter Care Teams Machine Cloth Examiner Relationship Specialty Start Date End Date None, Provider PCP - General 01/01/15 08/27/15 documented as of this encounter
--- OUTSIDE RECORDS SUMMARY | 2024-02-10 01:30 | XMS_ITS | Encounter Summary ---
Author Organization [facility] Address [address] [place] [address] Care Team Providers Care Piece Work Checker Name Role Phone Nimisha Clifton SHOVEL MECHANIC Primary Care Provider [phone] Reason for Visit * Reason Onset Date Comments No Show 10/03/2015 Encounter Details Date Type Department Care Team (Late st Contact Info) Description 10/03/2015 Telephone [facility] Adult Primary Care - [place] 1 [place], [place] 136521 Nimisha Clifton, SHOVEL MECHANIC 1 [facility] Level 1 [place] [phone] No Show Social History Tobacco [...] [facility] Adult Primary Care - [address] [phone] Carrington Calderon MD [address] [place] [phone] 02/27/2024 8:30 EDT Telemedicine [facility] Sleep Program - [address] 138911 Dwight Colbert [address] [place] [phone] 02/29/2024 10:30 EDT Appointment [facility] Radiology Nuclear Medicine and PET [address] [phone] 02/29/2024 14:30 EDT Appointment [facility] Radiology Nuclear Medicine and PET [address] 550281 03/01/2024 8:00 EDT Appointment [facility] Radiology Nuclear Medicine and PET [address] 854291 03/01/2024 9:30 EDT Appointment [facility] Radiology Nuclear Medicine and PET [address] [phone] documented as of this encounter Visit Diagnoses Not on filedocumented in this encounter Care Teams Piece Work Checker Relationship Specialty Start Date End Date Nimisha Clifton NP [address] [place] [phone] PCP - General 08/28/15 03/07/16 documented as of this encounter
--- OUTSIDE RECORDS SUMMARY | 2024-02-10 01:30 | XMS_ITS | Encounter Summary ---
Author Organization [facility] Address [address] [place] [address] Care Team Providers Care Semiconductor Dies Loader Name Role Phone Madeline Caputo Primary Care Provider [phone] Reason for Visit * Reason Comments Hyperglycemia Pt reports 335 FS at 2100, just dx with DM type 2 after thanksgiving started on metformin. Pt reports BUSH and generally not feeling well Encounter Details Date Type Department Care Team (Late st Contact Info) Description 05/10/2010 22:38 EST - 05/11/2010 0:55 EST Emergency [facility] Emergency Department - [address] 269411 Maj Almanza MD [address] [place] [phone] Doris Moreno MD [address] [place] [address], Level 1 [place] [phone] Emergency, MD Ekaterina Hyperglycemia; Bullous myringitis; Bronchitis; [...] 23:40 EST Call endocrine clinic tomorrow at [phone], let them know you were seen in ED and Dr. Mera approved you being seen for expedited New Diabetes appt Continue weight loss efforts Zithromax as prescribed. For second opinion re headaches : call Dr. Poe [phone] For appt. Please return if worsening symptoms or any new concerns. * Attachments The following attachments cannot be sent through Care Everywhere. * BRONCHITIS IN ADULTS: AFTER YOUR VISIT (BULGARIAN) * DIABETES CARE WHEN YOU ARE SICK: AFTER YOUR VISIT (BULGARIAN) * DIABETES DIET GUIDELINES: AFTER YOUR VISIT (BULGARIAN) documented in this encounter Medications at [...] doctors office and was referred to the [place] ED, but pt understood that they refused to see me as they needed to talk to her doctor first. Therefore, she came to [place]. Pt notes recent nasal congestion, cough, and [...] progress. Discharge Prescriptions New Prescriptions AZITHROMYCIN (ZITHROMAX Z-EGORGINA) 250 MG TABLET Take 1 Tab by [...] [facility] [place] [address] Carrington Calderon MD [address] [phone] 02/27/2024 8:30 EDT Telemedicine [facility] Sleep Program - [address] [place] [address] Dwight Colbert [address] [place] [address] 02/29/2024 10:30 EDT [facility] - [address] [address] 02/29/2024 14:30 EDT Appointment [facility] Radiology Nuclear Medicine and PET [address] [address] 03/01/2024 8:00 EDT Appointment [facility] Radiology Nuclear Medicine and PET [address] [address] 03/01/2024 9:30 EDT Appointment [facility] Radiology Nuclear Medicine and PET [address] [address] documented as of this encounter Procedures Procedure [...] CARE TEST O RDERADONALDO Performing Organization Address [email or web address] de Phone Number POINT OF CARE * [...] CARE TEST O MARILIA Performing Organization Address [email or web address] de Phone Number POINT OF CARE * ELEVATED GLUCOSE (05/10/2010 22:53 EST) Elevated Glucose Screening glucose greater than 180 mg/dl. Please order follow up hemoglobin A1c. [facility] 05/10/2010 22:5 3 EST 05/10/2010 23:36 EST Maj Archie MARTÍNEZ CHEMISTRY & BLOOD GA S ORDERABLES Performing Organization Address [facility] Co de Phone Number [facility] [address] [place] [address] * (ABNORMAL) HEMAGRAM AND DIFFERENTIAL (05/10/2010 22:53 [...] DNA PROBE ORDERABLES [facility] [address] [place] [address] * (ABNORMAL) SCREENING GLUCOSE (05/10/2010 22:53 EST) Glucose, Screening 238(H) 70 - 100 mg/dl [facility] Blood specimen (specimen) 05/10/2010 22:53 EST 05/10/2010 23:36 EST Maj Archie MARTÍNEZ CHEMISTRY & BLOOD GA S ORDERABLES Performing Organization Address [facility] [[email or web address]] de Phone Number [facility] [address] [place] [address] * CREATININE (05/10/2010 22:53 EST) Creatinine 0.80 0.7 - 1.5 mg/dl [facility] GFR, Calculated >60 ml/min/1.7 3m2 [facility] Blood specimen (specimen) 05/10/2010 22:53 EST 05/10/2010 23:36 EST Maj Archie MARTÍNEZ CHEMISTRY & BLOOD GA S ORDERABLES Performing Organization Address [facility] de Phone Number [facility] [address] [place] [address] * BUN (05/10/2010 22:53 EST) BUN 12 10 - 26 mg/dl [facility] Blood specimen (specimen) 05/10/2010 22:53 EST 05/10/2010 23:36 EST Maj Archie MARTÍNEZ CHEMISTRY & BLOOD GA S ORDERABLES Performing Organization Address [facility] de Phone Number [facility] [address] [place] [address] * ELECTROLYTES (05/10/2010 22:53 EST) Sodium 138 136 - 145 mEq/L [facility] Potassium 4.4 3.5 - 5.0 mEq/L [facility] Chloride 98 96 - 110 mEq/L [facility] CO2 29 24 - 32 mEq/L [facility] Blood specimen (specimen) 05/10/2010 22:53 EST 05/10/2010 23:36 EST Maj Archie MARTÍNEZ CHEMISTRY & BLOOD GA S ORDERABLES [facility] [address] [place] [address] documented in this encounter Visit Diagnoses Diagnosis [...] 05/10 documented in this encounter Care Teams Semiconductor Dies Loader Relationship Specialty Start Date End Date Madeline Caputo PA [address] [place] [address] PCP - General 05/10/10 12/31/14 documented as of this encounter
--- OUTSIDE RECORDS SUMMARY | 2024-02-10 01:30 | XMS_ITS | Encounter Summary ---
Author Organization [facility] Address [address] [place] [address] Care Team Providers Care Electronic Assembly Name Role Phone Trinity Samaniego MD Primary Care Provider Encounter Details Date Type Department Care Team (Late st Contact Info) Description 09/18/2009 Abstract [facility] Family Medicine - [address] [address] Trinity Samaniego MD [address] [place] [phone] Obesity, unspecified; Migraine NOS/not intrcbl Social [...] [facility] - [address] [phone] Carrington Calderon MD [address] [phone] 02/27/2024 8:30 EDT Telemedicine [facility] Sleep Program - [address] [phone] Dwight Colbert [address] [place] [address] 02/29/2024 10:30 EDT Appointment [facility] Radiology Nuclear Medicine and PET - [address] [address] 02/29/2024 14:30 EDT Appointment [facility] Radiology Nuclear Medicine and PET [address] [address] 03/01/2024 8:00 EDT Appointment [facility] Radiology Nuclear Medicine and PET [address] [phone] 03/01/2024 9:30 EDT Appointment [facility] Radiology Nuclear Medicine and PET [address] [address] documented as of this encounter Visit Diagnoses Diagnosis Obesity, unspecified Migraine, unspecified, without mention of intractable migraine without mention of status migrainosus documented in this encounter Care Teams Electronic Assembly Relationship Specialty Start Date End Date Trinity Samaniego MD [address] [place] [phone] PCP - General 09/16/09 10/05/09 documented as of this encounter
--- OUTSIDE RECORDS SUMMARY | 2024-02-10 01:30 | XMS_ITS | Encounter Summary ---
Author Organization [facility] Address [address] [place] [address] Care Team Providers Care Hog Sticker Name Role Phone Unavailable Primary Care Provider Unavailabl e Encounter Details Date Type Department Care Team (Late st Contact Info) Description 05/27/2006 9:45 EST Hospital Encounter [facility] - [facility] [address] [place] [address] Fermin Lovett MD Social History Tobacco Use Types Packs/Day Years Used Date Smoking Tobacco: Every Day Cigarettes 0.5 13.2 Started: 11/10/2010 Smokeless Tobacco: Never Comments:06/13/20 actively try ing to quit about 5-8 cigs/day Alcohol Use Standard Drinks/Week Comments Yes 0 (1 standard drink = 0.6 oz pur e alcohol) rarely C Utilities Answer Date Recorded In the past 12 months has [employer], gas, oil, or water company threatened to [...] [facility] Adult Primary Care - [address] [address] Carrington Calderon MD [address] [phone] 02/27/2024 8:30 EDT Telemedicine [facility] Sleep Program - [address] [phone] Dwight Colbert [address] [place] [phone] 02/29/2024 10:30 EDT Appointment [facility] Radiology Nuclear Medicine and PET [address] 037371 02/29/2024 14:30 EDT Appointment [facility] Radiology Nuclear Medicine and PET [address] [address] 03/01/2024 8:00 EDT Appointment [facility] Radiology Nuclear Medicine and PET [address] 036741 03/01/2024 9:30 EDT Appointment [facility] Radiology Nuclear Medicine and PET [address] [phone] documented as of this encounter Visit Diagnoses Not on filedocumented in this encounter Additional Health Concerns Infection Onset Date Last Indicated Resolved Time R/O COVID-19 08/04/2020 08/04/2020 08/04/2020 11:4 0 EST documented as of this encounter
--- OUTSIDE RECORDS SUMMARY | 2024-02-10 01:31 | XMS_ITS | Encounter Summary ---
Author Organization [facility] Address [address] [place] [address] Care Team Providers Care Switcher Name Role Phone Jasmin Jara Primary Care Provider Unavail Trinity Wilson MD Primary Care Provider Encounter Details Date Type Department Care Team (Late st Contact Info) Description 04/02/2004 Results Only [facility] Family Medicine - [address] [address] Mervin Arevalo MD [address] [place] [address] [phone] Social History Tobacco Use Types [...] [facility] Adult Primary Care - [address] [phone] Carrington Calderon MD [address] [place] [phone] 02/27/2024 8:30 EDT Telemedicine [facility] Sleep Program - [address] [phone] Dwight Colbert [address] [place] [address] 02/29/2024 10:30 EDT [facility] Radiology Nuclear Medicine and PET - [address] [address] 02/29/2024 14:30 EDT [facility] Radiology Nuclear Medicine and PET - [address] [address] 03/01/2024 8:00 EDT Appointment [facility] Radiology Nuclear Medicine and PET [address] 927391 03/01/2024 9:30 EDT Appointment [facility] Radiology Nuclear Medicine and PET [address] [address] documented as of this encounter Procedures Procedure Name Priority Date/Time Associated Diagnosis Comments N. GONORRHOEAE AMPLIFIED PROBE Routine 04/02/2004 15:58 EDT ZZCHLAMYDIA TRACHOMATIS AMPLIFIED PROBE Routine 04/02/2004 15:58 EDT CYTOPATHOLOGY Routine 04/02/2004 0:00 EDT documented in this encounter Results * N. GONORRHOEAE AMPLIFIED PROBE (04/02/2004 15:58 EDT) Result No Neisseria gonorrhoeae DNA detected by document design specialist mediated amplification. [facility] Report Status Final [id number] [facility] Specimen Description [facility] 04/02/2004 15:5 8 EDT 04/02/2004 22:22 EDT Mervin Arevalo MD MICROBIOLOGY - GENER AL ORDERABLES [facility] [address] [place] [address] * CHLAMYDIA TRACHOMATIS AMPLIFIED PROBE (04/02/2004 15:58 EDT) Specimen Description [facility]ix [facility] Result No Chlamydia trachomatis DNA detected by document design specialist mediated amplification. [facility] Report Status Final [id number] [facility] 04/02/2004 15:5 8 EDT 04/02/2004 22:21 EDT Mervin Arevalo MD MICROBIOLOGY - GENER AL ORDERABLES [facility] [address] [place] [address] * CYTOPATHOLOGY (04/02/2004 0:00 EDT) Pathology Report: CYTOPATHOLOGY REPORT Reports generated via electronic interface contain original data; however they are lacking the format of the original report. Caution should be taken when reading/interpreti ng unformatted reports. Name: ? CRISTY DEL VALLE ? Accession #: ? [id number] : ? 1985 (Age: 19) ??F ?Collect [...] Arevalo MD PATHOLOGY ORDERABLES Performing Organization Address City/State/[facility] Co de Phone Number [facility] [address] [place] [address] documented in this encounter Visit Diagnoses Not on filedocumented in this encounter Care Teams Switcher Relationship Specialty Start Date End Date Jasmin Jara PA PCP - General 10/06/09 05/09/10 Trinity Samaniego MD [address] [place] [phone] PCP - General 09/16/09 10/05/09 documented as of this encounter
--- OUTSIDE RECORDS SUMMARY | 2024-02-10 01:31 | XMS_ITS | Encounter Summary ---
Author Organization [facility] Address [address] [place] [address] Care Team Providers Care Cyber Security Analyst Name Role Phone Unavailable Primary Care Provider Unavailabl e Encounter Details Date Type Department Care Team (Latest Contact Info) Description 04/11/2004 12:25 EST Hospital Encounter [facility] Emergency Department - [place] [address] [place], [place] [address] Emergency, MD Ekaterina Discharge Disposition: Home or [...] Visit [facility] Adult Primary Care - [address] [phone] Carrington Calderon MD [address] [phone] 02/27/2024 8:30 EDT Telemedicine [facility] Sleep Program - [address] [phone] Dwight Colbert [address] [place], [place] [address] 02/29/2024 10:30 EDT Appointment [facility] Radiology Nuclear Medicine and PET [address] [phone] 02/29/2024 14:30 EDT Appointment [facility] Radiology Nuclear Medicine and PET [address] [address] 03/01/2024 8:00 EDT Appointment [facility] Radiology Nuclear Medicine and PET [address] [phone] 03/01/2024 9:30 EDT Appointment [facility] Radiology Nuclear Medicine and PET [address] [phone] documented as of this encounter Procedures Procedure [...] DNA PROB E ORDERABLES Performing Organization Address City[facility] Co de Phone Number [facility] [address] [place] [address] * N. GONORRHOEAE AMPLIFIED PROBE (04/11/2004 13:50 EST) Result No Neisseria gonorrhoeae DNA detected by liquor store manager mediated amplification. [facility] Report Status Final [id number] [facility] Specimen Description [facility] 04/11/2004 13:5 0 EST 04/11/2004 14:05 EST Default Emergency MICROBIOLOGY - GENE RAL ORDERABLES Performing Organization Address City[facility] Co de Phone Number [facility] [address] [place] [address] * CHLAMYDIA TRACHOMATIS AMPLIFIED PROBE (04/11/2004 13:50 EST) Specimen Description [facility] Result No Chlamydia trachomatis DNA detected by liquor store manager mediated amplification. [facility] Report Status Final [id number] [facility] 04/11/2004 13:5 0 EST 04/11/2004 14:05 EST Default Emergency MICROBIOLOGY - GENE [facility] ORDERABLES Performing Organization Address City/State/[facility] Co oh Phone Number [facility] [address] [place] [address] documented in this encounter Visit Diagnoses Not on filedocumented in this encounter
--- OUTSIDE RECORDS SUMMARY | 2024-02-10 01:31 | XMS_ITS | Encounter Summary ---
Author Organization [facility] Address [address] [place] [address] Care Team Providers Care Fiberglass Technician Name Role Phone Unavailable Primary Care Provider Unavailabl e Encounter Details Date Type Department Care Team (Latest Contact Info) Description 12/02/2005 17:43 EDT Hospital Encounter [facility] - [facility] [address] [place] [address] Villa Rodriguez MD Discharge Disposition: Auto Discharge [...] [facility] - [address] [phone] Carrington Calderon MD [address] [phone] 02/27/2024 8:30 EDT Telemedicine [facility] Sleep Program - [address] [phone] Dwight Colbert [address] [place], [place] [address] 02/29/2024 10:30 EDT [facility]ment [facility] Radiology Nuclear Medicine and PET - [address] [phone] 02/29/2024 14:30 EDT Appointment [facility] Radiology Nuclear Medicine and PET - [address] [address] 03/01/2024 8:00 EDT Appointment [facility] Radiology Nuclear Medicine and PET - [address] [phone] 03/01/2024 9:30 EDT Appointment [facility] Radiology Nuclear Medicine and PET - [address] [phone] documented as of this encounter Visit Diagnoses Not on filedocumented in this encounter
--- OUTSIDE RECORDS SUMMARY | 2024-02-10 01:31 | XMS_ITS | Encounter Summary ---
Author Organization [facility] Address [address] [place] [address] Care Team Providers Care It Sales Executive Name Role Phone Unavailable Primary Care Provider Unavailabl e Encounter Details Date Type Department Care Team (Late st Contact Info) Description 03/31/2005 1:30 EDT Hospital Encounter [facility] [address] [place] [address] Bhupendra Mayo MD [address] [facility] Level 4 [place] [phone] Social History Tobacco Use Types Packs/Day Years Used Date Smoking Tobacco: Every Day Cigarettes 0.5 13.2 Started: 11/10/2010 Smokeless Tobacco: Never Comments:06/13/20 actively try ing to quit about 5-8 cigs/day Alcohol Use Standard Drinks/Week Comments Yes 0 (1 standard drink = 0.6 oz pur e alcohol) rarely C Utilities Answer Date Recorded In the past 12 months has [employer], gas, oil, or water [employer] threatened to shut off services in your [...] any time in the past 12 [facility], were you homeless or living [...] [facility] - [address] [phone] Carrington Calderon MD [address] [phone] 02/27/2024 8:30 EDT Telemedicine [facility] Sleep Program - [address] 347[address] Dwight Colbert [address] [place] [phone] 02/29/2024 10:[address] [facility] Radiology Nuclear Medicine and PET [address] [phone] 02/29/2024 14:[address] [facility] Radiology Nuclear Medicine and PET [address] [phone] 03/01/2024 8:[address] [facility] Radiology Nuclear Medicine and PET [address] [phone] 03/01/2024 9:[address] [facility] Radiology Nuclear Medicine and PET [address] [phone] documented as of this encounter Procedures Procedure [...] GA S ORDERABLES [facility] [address] [place] [address] documented in this encounter Visit Diagnoses Not on filedocumented in this encounter Additional Health Concerns Infection Onset Date Last Indicated Resolved Time R/O COVID-19 08/04/2020 08/04/2020 08/04/2020 11:4 0 EST documented as of this encounter
--- OUTSIDE RECORDS SUMMARY | 2024-02-10 01:31 | XMS_ITS | Encounter Summary ---
Author Organization [facility] Address [address] [place] [address] Care Team Providers Care Hematology Oncology Consultant Name Role Phone Unavailable Primary Care Provider Unavailabl e Encounter Details Date Type Department Care Team (Late st Contact Info) Description 03/30/2006 7:53 EDT Hospital Encounter [facility] [address] [place] [address] Unknown, Provider, Social History Tobacco Use Types Packs/Day Years Used Date Smoking Tobacco: Every Day Cigarettes 0.5 13.2 Started: 11/10/2010 Smokeless Tobacco: Never Comments:06/13/20 actively try ing to quit about 5-8 cigs/day Alcohol Use Standard Drinks/Week Comments Yes 0 (1 standard drink = 0.6 oz pur e alcohol) rarely [facility] Utilities Answer Date Recorded In the past 12 months has [employer], oil, or water [employer] threatened to shut off services in your [...] [facility] Adult Primary Care - [address] 600[address] Carrington Calderon MD [address] [phone] 02/27/2024 8:30 EDT Telemedicine [facility] Sleep Program - [address] [phone] Dwight Colbert [address] [place] [phone] 02/29/2024 10:30 EDT Appointment [facility] Radiology Nuclear Medicine and PET [address] [phone] 02/29/2024 14:30 EDT Appointment [facility] Radiology Nuclear Medicine and PET [address] [phone] 03/01/2024 8:00 EDT Appointment [facility] Radiology Nuclear Medicine and PET [address] [phone] 03/01/2024 9:30 EDT Appointment [facility] Radiology Nuclear Medicine and PET [address] [phone] documented as of this encounter Visit Diagnoses Not on filedocumented in this encounter Additional Health Concerns Infection Onset Date Last Indicated Resolved Time R/O COVID-19 08/04/2020 08/04/2020 08/04/2020 11:4 0 EST documented as of this encounter
--- OUTSIDE RECORDS SUMMARY | 2024-02-10 01:31 | XMS_ITS ---
Author Organization Unknown Address [address] [place] [phone] Phone Care Team Providers Care Bistro Attendant Name Role Phone ROSA ISELA Judge Attending Unavailable Social History Type Status Start Date End Date Code Code Syst em Sex Female Medications Medication Start Date End Date Route Frequency Dose Code Code System Medication Instructions Home Meds Bactrim DS 800MG-160MG Oral Tablet 01/07/2024 Unknown ORAL TWICE A DAY 1 unit(s) 136394 RxNorm TAKE 1 EACH ORAL TWICE A DAY DULoxetine HCl 40MG Oral Capsule, Delayed Release 01/07/2024 Unknown ORAL DAILY 40 MILLIGRAMS 633871 RxNorm TAKE 40 MILLIGRAM S ORAL DAILY Gabapentin 300MG Oral Capsule 01/07/2024 Unknown ORAL DAILY 300 MILLIGRAMS 221124 RxNorm TAKE 300 MILLIGRAM S ORAL DAILY Gabapentin 300MG Oral Tablet 01/07/2024 Unknown ORAL BEDTIME 1200 MILLIGRAMS 0121096 RxNorm TAKE 1200 MILLIGRAM S ORAL BEDTIME Januvia 25MG Oral Tablet 01/07/2024 Unknown ORAL DAILY 25 MILLIGRAMS 470780 RxNorm TAKE 25 MILLIGRAM S ORAL DAILY Jardiance 10MG Oral Tablet 01/07/2024 Unknown ORAL DAILY 10 MILLIGRAMS 7584080 RxNorm TAKE 10 MILLIGRAM S ORAL DAILY Lantus SoloStar 100U/1ML Subcutaneous Solution 01/07/2024 Unknown SUBCUTAN EOUS BEDTIME 40 UNIT RxNorm INJECT 40 UNIT SUBCUTANE OUS BEDTIME Lidocaine 5% Topical application Patch, Extended Release 01/07/2024 Unknown TOPICAL APPLICAT ION DAILY 1 unit(s) 7179926 RxNorm 1 EACH TOPICAL APPLICATI ON DAILY Omeprazole 40MG Oral Capsule, Delayed Release 01/07/2024 Unknown ORAL DAILY 40 MILLIGRAMS 214609 RxNorm TAKE 40 MILLIGRAM S ORAL DAILY Ondansetron 4MG Oral Tablet, Disintegrating 01/07/2024 Unknown ORAL NEEDED EVERY 6 HOURS 4 MILLIGRAMS 213216 RxNorm TAKE 4 MILLIGRAM S ORAL NEEDED EVERY 6 HOURS Reglan 10MG Oral Tablet 01/07/2024 Unknown ORAL NEEDED EVERY 6 HOURS 10 MILLIGRAMS 058274 RxNorm TAKE 10 MILLIGRAM S ORAL NEEDED EVERY 6 HOURS insulin aspart 100U/1ML Injection Solution 01/07/2024 Unknown INJECTIO N THREE TIMES A DAY 1 UNIT 460127 RxNorm 1 UNIT INJECTION THREE TIMES A DAY oxyCODONE HCl-acetaminoph en 5MG-325MG Oral Tablet 01/07/2024 Unknown ORAL NEEDED EVERY 6 HOURS 1 TABLET 0702255 RxNorm TAKE 1 TABLET ORAL NEEDED EVERY 6 HOURS traMADol HCl 50MG Oral Tablet 01/07/2024 Unknown ORAL NEEDED EVERY 6 HOURS 50 MILLIGRAMS 342500 RxNorm TAKE 50 MILLIGRAM S ORAL NEEDED EVERY 6 HOURS traZODone hydrochloride 50MG Oral Tablet 01/07/2024 Unknown ORAL BEDTIME 50 MILLIGRAMS 014058 RxNorm TAKE 50 MILLIGRAM S ORAL BEDTIME [...] Date Status Code Code System NAUSEA active 398352157 SNOMED-CT VOMITING active 114625909 SNOMED-CT GASTROPARESIS WITH DM active 42306396 4 SNOMED-CT T2DM active 42080405 SNOMED-CT DIABETES TYPE I 01/06/2024 resolved 00165987 SNO MED-CT GASTROPARESIS 01/06/2024 resolved 553279620 SNOME D-CT Allergies and Adverse Reactions Allergy Substance Reaction Severity Start Date Concern Status Co de Code System No Known Drug Allergies Active 498677157 SNOMED-CT Plan of Treatment No Data Found Encounters Encounter Diagnosis Start Date Code Code Sys tem Vomiting, unspecified 01/06/2024 SNOMED -CT Personal Care Team Section Performer Name Performer Role Active Date Inactive Da te
--- OUTSIDE RECORDS SUMMARY | 2024-02-10 01:31 | XMS_ITS | Encounter Summary ---
Author Organization [facility] Address [address] [place] [address] Care Team Providers Care Seo Coordinator Name Role Phone Unavailable Primary Care Provider Unavailabl e Encounter Details Date Type Department Care Team (Late st Contact Info) Description 06/13/2004 Office Visit [facility] - Maple conversion [address] [place] [address] Doris Moreno MD 111 [facility], Level 1 [place] [phone] Social History Tobacco Use Types Packs/Day Years [...] patient was discharged home and accompanied by automotive consultant. The patient left the Emergency Department ambulatory and via private vehicle. --17:31 Rob Echeverria R.N., E.MCatherine aMrs R.N. Locked/Released at 06/13/2004 19:11 by Norma Evans R.N. documented in this encounter Plan of Treatment Upcoming Encounters Date Type Department Care Team (Late st Contact Info) Description 02/21/2024 9:45 EDT Office Visit [facility] Adult Primary Care - [address] [phone] Carrington Calderon MD 1 [facility] Level 1 [place] [phone] 02/27/2024 8:30 EDT Telemedicine [facility] Sleep Program - [address] [place] [place] [address] Dwight Colbert [address] [place] [address] 02/29/2024 10:30 EDT [facility]ointment [facility] Radiology Nuclear Medicine and PET - [address] [address] 02/29/2024 14:30 EDT [facility]ointment [facility] Radiology Nuclear Medicine and PET - [address] [id number] 03/01/2024 8:00 EDT Appointment [facility] Radiology Nuclear Medicine and PET - [address] [id number] 03/01/2024 9:30 EDT Appointment [facility] Radiology Nuclear Medicine and PET [address] [address] documented as of this encounter Visit Diagnoses Not on filedocumented in this encounter
--- OUTSIDE RECORDS SUMMARY | 2024-02-10 01:31 | XMS_ITS | Encounter Summary ---
Author Organization [facility] Address [address] [place] [address] Care Team Providers Care Cyber Transport Systems Specialist Name Role Phone Unavailable Primary Care Provider Unavailabl e Encounter Details Date Type Department Care Team (Late st Contact Info) Description 03/30/2006 Before PRISM Converted Visit (Maple) [facility] - Maple conversion [address] [place] [address] Angélica Hernandez CFNP Social History Tobacco Use Types Packs/Day Years Used Date Smoking Tobacco: Never Assessed Sex and Gender Information Value Date Recorded Sex Assigned at Not on file Gender Identity Female 06/18/2019 8:54 EST Sexual Orientation Not on file documented as of this encounter Progress Notes * Ra, Conv Plant Tech - 05/31/2009 0141 EST DIVISION OF SURGICAL ONCOLOGY - [facility] March 30, 2006 Broderick Ross M.D. [facility] Plastic and Reconstructive Surgery [address] [place] [address], [address] [place] [phone] Dear Doctor Vandana: Thank you in advance [...] - JUNE Plata Bhupendra addison Job ID: [id number] Document ID: [id number] cc: Broderick Ross MD JUNE Calzada Bhupendra addison Job ID: [id number] Document ID: [id number] cc: Broderick Ross MD * Dayron Knapp Plant Tech - 05/31/2009 0140 EST OF SURGICAL ONCOLOGY - [facility] PROGRESS/FOLLOWUP NOTE - 03/30/2006 [...] from the paternal side. Ethnic background is [place] and [place]ian. BALE COVERER history: Menarche at age 11. She is [...] - JUNE Plata Bhupendra addison Job ID: [id number] Document ID: [id number] cc: Kamini Gore MD JUNE Calzada Bhupendra addison Job ID: [id number] Document ID: [id number] cc: Kamini Gore MD documented in this encounter Plan of Treatment Upcoming Encounters Date Type Department Care Team (Late st Contact Info) Description 02/21/2024 9:45 EDT Office Visit [facility] Adult Primary Care - [address] [phone] Carrington Calderon MD [address] [place] [address] 1 [place] [phone] 02/27/2024 8:30 EDT Telemedicine [facility] Sleep Program - [address] [place] 1 [place], [place] [phone] Dwight Colbert [address] [place] [address] 02/29/2024 10:30 EDT [facility]ointment [facility] Radiology Nuclear Medicine and PET - [address] [id number] 02/29/2024 14:30 EDT Appointment [facility] Radiology Nuclear Medicine and PET - [address] [id number] 03/01/2024 8:00 EDT Appointment [facility] Radiology Nuclear Medicine and PET - [address] [phone] 03/01/2024 9:30 EDT Appointment [facility] Radiology Nuclear Medicine and PET - [address] [phone] documented as of this encounter Visit Diagnoses Not on filedocumented in this encounter
--- OUTSIDE RECORDS SUMMARY | 2024-02-10 01:31 | XMS_ITS | Encounter Summary ---
Author Organization [facility] Address [address] [place] [address] Care Team Providers Care Maturity Checker Name Role Phone Unavailable Primary Care Provider Unavailabl e Encounter Details Date Type Department Care Team (Latest Contact Info) Description 04/02/2004 17:44 EDT Hospital Encounter [facility] [address] [place] [address] Rigo Rosenbaum MD [address] [place] [phone] Discharge Disposition: Auto Discharge Social History [...] Visit [facility] Adult Primary Care - [address] [phone] Carrington Calderon MD [address] [phone] 02/27/2024 8:30 EDT Telemedicine [facility] Sleep Program - [address] [phone] Dwight Colbert [address] [place] [address] 02/29/2024 10:30 EDT Appointment [facility] Radiology Nuclear Medicine and PET - [address] [id number] 02/29/2024 14:30 EDT Appointment [facility] Radiology Nuclear Medicine and PET - [address] [id number] 03/01/2024 8:00 EDT Appointment [facility] Radiology Nuclear Medicine and PET - [address] [phone] 03/01/2024 9:30 EDT [facility]ment [facility] Radiology Nuclear Medicine and PET - [address] [phone] documented as of this encounter Visit Diagnoses Not on filedocumented in this encounter
--- OUTSIDE RECORDS SUMMARY | 2024-02-10 01:31 | XMS_ITS | Encounter Summary ---
Author Organization [facility] Address [address] [place] [address] Care Team Providers Care Installation Engineer Name Role Phone Unavailable Primary Care Provider Unavailabl e Encounter Details Date Type Department Care Team (Late st Contact Info) Description 09/27/2005 9:47 EDT Hospital Encounter [facility] [address] [place] [address] Oscar Moreno MD MSc [address] [place] [phone] Social History Tobacco Use Types Packs/Day Years Used Date Smoking Tobacco: Every Day Cigarettes 0.5 13.2 Started: 11/10/2010 Smokeless Tobacco: Never Comments:06/13/20 actively try ing to quit about 5-8 cigs/day Alcohol Use Standard Drinks/Week Comments Yes 0 (1 standard drink = 0.6 oz pur e alcohol) rarely [facility] Utilities Answer Date Recorded In the past 12 months has [employer], gas, oil, or water [employer] threatened to shut off services in your [...] [facility] Adult Primary Care - [address] [phone] Carrington Calderon MD [address] [phone] 02/27/2024 8:30 EDT Telemedicine [facility] Sleep Program - [address] [phone] Dwight Colbert [address] [place] [address] [phone] 02/29/2024 10:30 EDT Appointment [facility] Radiology Nuclear Medicine and PET [address] [phone] 02/29/2024 14:30 EDT Appointment [facility] Radiology Nuclear Medicine and PET [address] [id number] 03/01/2024 8:00 EDT Appointment [facility] Radiology Nuclear Medicine and PET [address] [id number] 03/01/2024 9:30 EDT Appointment [facility] Radiology Nuclear Medicine and PET [address] [phone] documented as of this encounter Visit Diagnoses Not on filedocumented in this encounter Additional Health Concerns Infection Onset Date Last Indicated Resolved Time R/O COVID-19 08/04/2020 08/04/2020 08/04/2020 11:4 0 EST documented as of this encounter
--- OUTSIDE RECORDS SUMMARY | 2024-02-10 01:31 | XMS_ITS | Data Portability ---
Author Organization [facility] [place] [address] [address] [place] [address] Assessment No assessment recorded. Plan of Treatment Reminders Order Date Submit Date Provider Last Modified By Organization Details Last Modified Time Details Appointments None recorded . Lab None recorded . Referral None recorded . Procedures None recorded . Surgeries None recorded . Imaging XR, ankle, 3 or more view - fall, rolled ankle sat 024 07/25/19 [facility] Radiology Center (Xrays Only), [address] [place], [address], 07:00:24 Medication Orders None recorded . Patient TargetsNo targets recorded. Patient InstructionsNo instructions recorded. Reason for Referral None Reported. Results Created Date Observation Date Name Description Value Unit Range Abnormal Flag Note LastModifiedBy Organization Detail LastModifiedTime 07/25/19 24 07/25/2023 XR, ankle , 3 or more view No observ ation record ed. [address] Radiology Center (Xrays Only) [address] [place] [address], [address], 08/04/2023 15:52:34 Result Notes None recorded. Procedures Surgical History None recorded. Imaging Results Imaging Date Name Status LastModified by Organiz ation Details LastModified Time 07/25/2023 XR, ankle, 3 or more view completed [address] Radiology Center (Xrays Only) [address] [place], [address], 08/04/2023 15:52:34 Procedure Notes None recorded. Medical Equipment None Reported. Allergies Allergen ID Allergen Name Allergen Category Reaction Reaction Severity Criticality Documentation Date Start Date Code Code System Note Provider Name and Address Organization Details Recorded Time 47848 Advil medicatio n rash severe high 07/25/2023 56732 0 RxNorm SANDOR Burch, [facility] 4 09:53:50 13373 pomegrana te fruit extract food rash severe high 07/25/2023 60102 01 RxNorm SANDOR Burch, [facility] 4 09:54:16 90743 citalopra m medicatio n rash severe high 07/25/2023 2556 RxNorm SANDOR Burch, [facility] 4 09:54:34 Medications Name Sig Start Date [...] 4 20 /min 162.56 cm 33.5 kg/m2 05338.5 1 g 97.1 [degF] 99 % 99 % 111 /min 126 mm[Hg] 82 mm[Hg] Kylie Barros MA [facility] 4 09:58:29 Social History Question Answer Notes LastModified by Organizat ion Details LastModified Time Tobacco Smoking Status Current Every Day Smoker Kylie Barros MA [facility], [place] - [facility]. 07/25/2023 09:56:39 What Was The Date Of Your Most Recent Tobacco Screening? 07/25/2023 [email or web address] Information not available 07/25/2023 Has Tobacco Cessation Counseling Been Provided? Yes [email or web address] Information not available 07/25/2023 On What Date Was Tobacco Cessation Counseling Provided? 07/25/2023 [email or web address] Information not available 07/25/2023 Do You Or [...] Diagnosis/Indication Diagnosis SNOMED-CT Code Diagnosis ICD10 Code [id number] YARA HENLEY PA-C [address] [place] [address] 07/25/2023 09:19:05 07/25/2023 10:14:51 Pain of right ankle joint 4123024249 8913804 M25.571 Health Concerns Section Related Observation LastModified by Organization Detai ls LastModified Time None Recorded Concern Status LastModified by Organization Details LastModified Time None Recorded Advance Directives Directive None Recorded Payers Encounter Date Sequence Insurance Name Policy Number Policy Cole Covered Member ID Cole Member ID Guarantor Name 07/25/2023 1 [place] [employer] [place] Cristy Luo [id number] Cristy Luo Notes Date Note Type Note [...] baseline. Has tried rest ice elevation and oxoc-jvw-kfhbomo pain medications with minimal relief. Continues to have significant pain. YARA HENLEY PA-C [address], [place], [address], [facility]. 07/25/2023 10:21:45 OBGyn Episode No OBEpisode recorded.
--- OUTSIDE RECORDS SUMMARY | 2024-02-10 01:31 | XMS_ITS | Encounter Summary ---
Author Organization [facility] Address [address] [place] [address] Care Team Providers Care Ground School Instructor Name Role Phone Unavailable Primary Care Provider Unavailabl e Encounter Details Date Type Department Care Team (Late st Contact Info) Description 04/29/2006 8:02 [facility] Hospital Encounter [facility] - Maple conversion [address] [place] [address] Fermin Trejo MD Ke[place], Stephanie S [address] [place] [phone] Social History Tobacco Use Types Packs/Day Years Used Date Smoking Tobacco: Every Day Cigarettes 0.5 13.2 Started: 11/10/2010 Smokeless Tobacco: Never Comments:06/13/20 actively try ing to quit about 5-8 cigs/day Alcohol Use Standard Drinks/Week Comments Yes 0 (1 standard drink = 0.6 oz pur e alcohol) rarely [facility] Utilities Answer Date Recorded In the past 12 months has [employer], gas, oil, or water [employer] threatened to shut off services in [...] [facility] - [address] [phone] Carrington Calderon MD [address] [phone] 02/27/2024 8:30 EDT Telemedicine [facility] Sleep Program - [address] 614121 Dwight Colbert [address] [place] [phone] 02/29/2024 10:30 EDT Appointment [facility] Radiology Nuclear Medicine and PET [address] [phone] 02/29/2024 14:30 EDT Appointment [facility] Radiology Nuclear Medicine and PET - [address] [phone] 03/01/2024 8:00 EDT Appointment [facility] Radiology Nuclear Medicine and PET [address] [phone] 03/01/2024 9:30 EDT Appointment [facility] Radiology Nuclear Medicine and PET [address] [phone] documented as of this encounter Visit Diagnoses Not on filedocumented in this encounter Additional Health Concerns Infection Onset Date Last Indicated Resolved Time R/O COVID-19 08/04/2020 08/04/2020 08/04/2020 11:4 0 EST documented as of this encounter
--- OUTSIDE RECORDS SUMMARY | 2024-02-10 01:31 | XMS_ITS | Encounter Summary ---
Author Organization [facility] Address [address] [place] [address] Care Team Providers Care Laboratory Monitor Name Role Phone Unavailable Primary Care Provider Unavailabl e Encounter Details Date Type Department Care Team (Latest Contact Info) Description 01/24/2006 14:06 EDT Hospital Encounter [facility] - Maple conversion [address] [place] [address] Felix Merritt III, MD 1 [place], [place] [address] Discharge Disposition: Auto Discharge Social History Tobacco [...] [facility] Adult Primary Care - [address] 440511 Carrington Calderon MD [address] [phone] 02/27/2024 8:[address] [facility] Sleep Program - [address] [address] Dwight Burrell [address] [place], [place] [address] 02/29/2024 10:30 EDT [facility] Rad[facility] Nuclear Medicine and PET [address] [id number] 02/29/2024 14:[address] [facility] Radiology Nuclear Medicine and PET [address] [phone] 03/01/2024 8:[address] [facility] Radiology Nuclear Medicine and PET [address] [phone] 03/01/2024 9:[address] [facility] Radiology Nuclear Medicine and PET [address] [phone] documented as of this encounter Procedures Procedure [...] GA S ORDERABLES [facility] [address] [place] [address] * (ABNORMAL) COMPREHENSIVE METABOLIC PANEL (01/24/2006 16:03 [...] GA S ORDERABLES [facility] [address] [place] [address] * (ABNORMAL) HEMAGRAM (01/24/2006 16:03 EDT) WBC [...] & PF4 ORD ERABLES Performing Organization Address City/State/[facility] Co de Phone Number [facility] [address] [place] [address] documented in this encounter Visit Diagnoses Not on filedocumented in this encounter
--- OUTSIDE RECORDS SUMMARY | 2024-02-10 01:31 | XMS_ITS | Encounter Summary ---
Author Organization [facility] Address [address] [place] [address] Care Team Providers Care Fence Erector Name Role Phone Unavailable Primary Care Provider Unavailabl e Encounter Details Date Type Department Care Team (Latest Contact Info) Description 06/13/2004 14:28 EST Hospital Encounter [facility] Emergency Department - Main [place] [address] [place] [address], [place] [address] Emergency, MD Ekaterina Discharge Disposition: Home or [...] Visit [facility] Adult Primary Care - [address] 947841 Carrington Calderon MD [address] [phone] 02/27/2024 8:30 EDT Telemedicine [facility] Sleep Program - [address] [phone] Dwight Colbert [address] [place], [place] [address] 02/29/2024 10:30 EDT Appointment [facility] Radiology Nuclear Medicine and PET [facility] [address] [place], [place] [phone] 02/29/2024 14:30 EDT Appointment [facility] Radiology Nuclear Medicine and PET [address] [phone] 03/01/2024 8:00 EDT Appointment [facility] Radiology Nuclear Medicine and PET [address] [phone] 03/01/2024 9:30 EDT Appointment [facility] Radiology Nuclear Medicine and PET [address] [address] documented as of this encounter [...] & PHONE RESULT [facility] [address] [place] [address] * (ABNORMAL) HEMAGRAM AND DIFFERENTIAL (06/13/2004 15:19 [...] DNA PROB E ORDERABLES Performing Organization Address City/State/[facility] Co de Phone Number [facility] [address] [place] [address] documented in this encounter Visit Diagnoses Not on filedocumented in this encounter
--- OUTSIDE RECORDS SUMMARY | 2024-02-10 01:31 | XMS_ITS | Encounter Summary ---
Author Organization [facility] Address [address] [place] [address] Care Team Providers Care Slip Presser Name Role Phone Unavailable Primary Care Provider Unavailabl e Encounter Details Date Type Department Care Team (Late st Contact Info) Description 04/11/2004 Office Visit [facility] - Maple conversion [address] [place] [address] Josh Coelho, PA-C 111 [facility], Level 1 [place] [address] Social History Tobacco Use Types Packs/Day Years [...] Discharge instructions reviewed with the patient and drug worker. Warnings reviewed. Reviewed medication. Treatments reviewed. Reviewed referrals. Patient and drug worker verbalized understanding. The patient was discharged home and accompanied by drug worker. The patient left the Emergency Department ambulatory and via private vehicle. Patient has no belongings. --15:23 Rob Gould R.N., R.N. Locked/Released at 04/11/2004 23:18 by Fermin Millan R.N. documented in this encounter Plan of Treatment Upcoming Encounters Date Type Department Care Team (Late st Contact Info) Description 02/21/2024 9:45 EDT Office Visit [facility] Adult Primary Care - [address] [phone] Carrington Calderon MD [address] [phone] 02/27/2024 8:30 EDT Telemedicine [facility] Sleep Program - [address] 526001 Dwight Colbert [address] [place] [phone] 02/29/2024 10:[address] [facility] Radiology Nuclear Medicine and PET - [address] [phone] 02/29/2024 14:[address] [facility] Radiology Nuclear Medicine and PET [address] [id number] 03/01/2024 8:[address] [facility] Radiology Nuclear Medicine and PET [address] [phone] 03/01/2024 9:[address] [facility] Radiology Nuclear Medicine and PET [address] [phone] documented as of this encounter Visit Diagnoses Not on filedocumented in this encounter
--- OUTSIDE RECORDS SUMMARY | 2024-02-10 01:31 | XMS_ITS | Encounter Summary ---
Author Organization [facility] Address [address] [place] [address] Care Team Providers Care Seedling Puller Name Role Phone Unavailable Primary Care Provider Unavailabl e Encounter Details Date Type Department Care Team (Late st Contact Info) Description 08/19/2004 16:02 [facility] Hospital Encounter [facility] - Other [address] [place] [address] Rosalio Bueno MD [address] [phone] Social History Tobacco Use Types Packs/Day Years Used Date Smoking Tobacco: Every Day Cigarettes 0.5 13.2 Started: 11/10/2010 Smokeless Tobacco: Never Comments:06/13/20 actively try ing to quit about 5-8 cigs/day Alcohol Use Standard Drinks/Week Comments Yes 0 (1 standard drink = 0.6 oz pur e alcohol) rarely C Utilities Answer Date Recorded In the past 12 months has [employer], gas, oil, or water [email or web address] threatened to shut off services in your [...] time in the past 12 m [facility], were you homeless or living in a [...] [facility] Adult Primary Care - [address] [phone] Carrington Calderon MD [address] [phone] 02/27/2024 8:30 EDT Telemedicine [facility] Sleep Program - [address] [phone] Dwight Colbert [address] [place] [address] [phone] 02/29/2024 10:30 EDT Appointment [facility] Radiology Nuclear Medicine and PET [address] [phone] 02/29/2024 14:30 EDT Appointment [facility] Radiology Nuclear Medicine and PET - [address] [id number] 03/01/2024 8:00 EDT Appointment [facility] Radiology Nuclear Medicine and PET [address] [id number] 03/01/2024 9:30 EDT Appointment [facility] Radiology Nuclear Medicine and PET [address] [phone] documented as of this encounter Visit Diagnoses Not on filedocumented in this encounter Additional Health Concerns Infection Onset Date Last Indicated Resolved Time R/O COVID-19 08/04/2020 08/04/2020 08/04/2020 11:4 0 EST documented as of this encounter
--- OUTSIDE RECORDS SUMMARY | 2024-02-10 01:31 | XMS_ITS | Encounter Summary ---
Author Organization [facility] Address [address] [place] [address] Care Team Providers Care Merchandising Internship Name Role Phone Unavailable Primary Care Provider Unavailabl e Encounter Details Date Type Department Care Team (Late st Contact Info) Description 12/22/2005 11:00 EDT Hospital Encounter [facility] - Maple conversion [address] [place] [address] Fermin Lovett MD Social History Tobacco Use Types Packs/Day Years Used Date Smoking Tobacco: Every Day Cigarettes 0.5 13.2 Started: 11/10/2010 Smokeless Tobacco: Never Comments:06/13/20 actively try ing to quit about 5-8 cigs/day Alcohol Use Standard Drinks/Week Comments Yes 0 (1 standard drink = 0.6 oz pur e alcohol) rarely C Utilities Answer Date Recorded In the past 12 months has [employer], gas, oil, or water [employer] threatened to shut off services in your [...] in the past 12 m [facility], were you homeless or living [...] [facility] Adult Primary Care - [address] [phone] Carrington Calderon MD [address] [phone] 02/27/2024 8:30 EDT Telemedicine [facility] Sleep Program - [address] [phone] Dwight Colbert [address] [place] [address] [phone] 02/29/2024 10:30 EDT Appointment [facility] Radiology Nuclear Medicine and PET [address] [id number] 02/29/2024 14:30 EDT Appointment [facility] Radiology Nuclear Medicine and PET [address] [id number] 03/01/2024 8:00 EDT Appointment [facility] Radiology Nuclear Medicine and PET [address] [phone] 03/01/2024 9:30 EDT Appointment [facility] Radiology Nuclear Medicine and PET [address] [phone] documented as of this encounter Visit Diagnoses Not on filedocumented in this encounter Additional Health Concerns Infection Onset Date Last Indicated Resolved Time R/O COVID-19 08/04/2020 08/04/2020 08/04/2020 11:4 0 EST documented as of this encounter
--- OUTSIDE RECORDS SUMMARY | 2024-02-10 01:31 | XMS_ITS | Encounter Summary ---
Author Organization [facility] Address [address] [place] [address] Care Team Providers Care Inspector Subassembly Name Role Phone Jasmin Jara Primary Care Provider Unavail Trinity Wilson MD Primary Care Provider [phone] Encounter Details Date Type Department Care Team (Late st Contact Info) Description 08/19/2004 Results Only [facility] Family Medicine - [address] [address] Rosalio Bueno MD [address] [place] [phone] Social History Tobacco Use Types Packs/Day Years [...] [facility] [address] [phone] Carrington Calderon MD [address] [place] [phone] 02/27/2024 8:30 EDT Telemedicine [facility] Sleep Program - [address] [phone] Dwight Colbert [address] [place] [address] 02/29/2024 10:30 EDT Appointment [facility] Radiology Nuclear Medicine and PET [address] [phone] 02/29/2024 14:30 EDT Appointment [facility] Radiology Nuclear Medicine and PET [address] [id number] 03/01/2024 8:00 EDT Appointment [facility] Radiology Nuclear Medicine and PET [address] [phone] 03/01/2024 9:30 EDT Appointment [facility] Radiology Nuclear [facility] and PET [address] [phone] documented as of this encounter Procedures Procedure [...] GA S ORDERABLES [facility] [address] [place] [address] * (ABNORMAL) HEMAGRAM (08/19/2004 15:37 EST) WBC [...] PF4 ORD ERABLES [facility] [address] [place] [address] documented in this encounter Visit Diagnoses Not on filedocumented in this encounter Care Teams Inspector Subassembly Relationship Specialty Start Date End Date Jasmin Jara PA PCP - General 10/06/09 05/09/10 Trinity Samaniego MD [address] [place] [phone] PCP - General 09/16/09 10/05/09 documented as of this encounter
--- OUTSIDE RECORDS SUMMARY | 2024-02-10 01:31 | XMS_ITS | Encounter Summary ---
Author Organization [facility] Address [address] [place] [address] Care Team Providers Care Hard Candy Spinner Name Role Phone Unavailable Primary Care Provider Unavailabl e Encounter Details Date Type Department Care Team (Late st Contact Info) Description 09/21/2005 7:24 EDT - 09/21/2005 11:59 EDT Hospital Encounter [address] [address] Nathaniel Argueta MD 111 [facility] [address] [place] [phone] Discharge Disposition: Auto Discharge Social History Tobacco [...] [facility] - [address] [phone] Carrington Calderon MD [address] [place] [phone] 02/27/2024 8:30 EDT Telemedicine [facility] Sleep Program - S [address] [address] Dwight Colbert [address] [place] [address] 02/29/2024 10:30 EDT Appointment [facility] Radiology Nuclear Medicine and PET - [address] [phone] 02/29/2024 14:30 EDT Appointment [facility] Radiology Nuclear Medicine and PET - [address] [address] 03/01/2024 8:00 EDT Appointment [facility] Radiology Nuclear Medicine and PET [address] [phone] 03/01/2024 9:30 EDT Appointment [facility] Radiology Nuclear Medicine and PET [address] [phone] documented as of this encounter Procedures Procedure [...] were discussed with the patient by the snuff maker at the time of the exam. OVERALL [...] were discussed with the patient by the snuff maker at the time of the exam. OVERALL ASSESSMENT - NEGATIVE END OF IMPRESSION Nathaniel Argueta MD IMG US ORDERABLES documented in this encounter Visit Diagnoses Not on filedocumented in this encounter
--- OUTSIDE RECORDS SUMMARY | 2024-02-10 01:31 | XMS_ITS | Encounter Summary ---
Author Organization [facility] Address [address] [place] [address] Care Team Providers Care Janitorial Cleaner Name Role Phone Unavailable Primary Care Provider Unavailabl e Encounter Details Date Type Department Care Team (Late st Contact Info) Description 01/27/2004 Office Visit [facility] - Maple conversion [address] [place] [address] Samira Fong MD 0 [place] [phone] Social History Tobacco Use Types Packs/Day Years [...] SOCIAL HISTORY Nonsmoker. FAMILY HISTORY works at [employer] ADDITIONAL NOTES The nursing notes have been [...] hot water. Pain level now: 11/13. Treatment IMPROVEMENT ADVISOR: ice and (arrives with dressing on right [...] The patientwas discharged home and accompanied by diesel powerplant mechanic helper. The patient left the Emergency Department ambulatory and via private vehicle. Departure time: 14:31 --1431 Rob Cardoso R.N. Locked/Released at 01/26/2004 14:31 by Lara Sparks R.N. documented in this encounter Plan of Treatment Upcoming Encounters Date Type Department Care Team (Late st Contact Info) Description 02/21/2024 9:45 EDT Office Visit [facility] Adult Primary Care - [address] [phone] Carrington Calderon MD [address] [phone] 02/27/2024 8:30 EDT Telemedicine [facility] Sleep Program - [address] [phone] Dwight Colbert [address] [place] [phone] 02/29/2024 10:30 EDT Appointment [facility] Radiology Nuclear Medicine and PET [address] [phone] 02/29/2024 14:30 EDT Appointment [facility] Radiology Nuclear Medicine and PET - [address] [address] 03/01/2024 8:00 EDT Appointment [facility] Radiology Nuclear Medicine and PET [address] [address] 03/01/2024 9:30 EDT Appointment [facility] Radiology Nuclear Medicine and PET [address] [address] documented as of this encounter Visit Diagnoses Not on filedocumented in this encounter
--- OUTSIDE RECORDS SUMMARY | 2024-02-10 01:31 | XMS_ITS | Encounter Summary ---
Author Organization [facility] Address [address] [place] [address] Care Team Providers Care Puddler Helper Name Role Phone Unavailable Primary Care Provider Unavailabl e Encounter Details Date Type Department Care Team (Late st Contact Info) Description 01/26/2004 12:26 EDT Hospital Encounter [address] [address] Samira Fong MD [address] [place] [phone] Social History Tobacco Use Types Packs/Day Years Used Date Smoking Tobacco: Every Day Cigarettes 0.5 13.2 Started: 11/10/2010 Smokeless Tobacco: Never Comments:06/13/20 actively try ing to quit about 5-8 cigs/day Alcohol Use Standard Drinks/Week Comments Yes 0 (1 standard drink = 0.6 oz pur e alcohol) rarely [facility] Utilities Answer Date Recorded In the past 12 months has [employer], gas, oil, or water [employer] threatened to shut off services in your [...] [facility] Adult Primary Care - [address] 138561 Carrington Calderon MD [address] [phone] 02/27/2024 8:30 EDT Telemedicine [facility] Sleep Program - [address] [phone] Dwight Colbert [address] [place] [address] [phone] 02/29/2024 10:30 EDT Appointment [facility] Radiology Nuclear Medicine and PET [address] [phone] 02/29/2024 14:30 EDT Appointment [facility] Radiology Nuclear Medicine and PET - [address] [phone] 03/01/2024 8:00 EDT Appointment [facility] Radiology Nuclear Medicine and PET [address] [phone] 03/01/2024 9:30 EDT Appointment [facility] Radiology Nuclear Medicine and PET [address] [phone] documented as of this encounter Visit Diagnoses Not on filedocumented in this encounter Additional Health Concerns Infection Onset Date Last Indicated Resolved Time R/O COVID-19 08/04/2020 08/04/2020 08/04/2020 11:4 0 EST documented as of this encounter
--- OUTSIDE RECORDS SUMMARY | 2024-02-10 01:31 | XMS_ITS | Encounter Summary ---
Author Organization [facility] Address [address] [place] [address] Care Team Providers Care Printing Roller Polisher Name Role Phone Unavailable Primary Care Provider Unavailabl e Encounter Details Date Type Department Care Team (Late st Contact Info) Description 09/27/2005 Before PRISM Converted Visit (Maple) [facility] - Maple conversion [address] [place] [address] Oscar Moreno MD MSc [address] [place] [phone] Social History Tobacco Use Types Packs/Day Years Used Date Smoking Tobacco: Never Assessed Sex and Gender Information Value Date Recorded Sex Assigned at Not on file Gender Identity Female 06/18/2019 8:54 EST Sexual Orientation Not on file documented as of this encounter Consult Notes * Oscar Moreno MD - 05/17/2009 1819 EST OF SURGICAL ONCOLOGY - BREAST [facility] HISTORY AND PHYSICAL/CONSULTATION - 09/27/2005 [...] or drug addictions. She is employed at [employer]. She is single and lives at home with her family. 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 She continues [...] historyof ovarian cancer. The patient is of [place] and [place] background. Review of systems: Constitutional: The patient [...] sonographic abnormality in the right breast. Diagnostics: [facility] Radiology report dated 09/21/05. Right breast [...] patient the name and number for the [facility] to help in herpursuit to arrange primary care. Signed by Oscar Moreno MD 10/06/2005 07:27 Nery Del Valle MD Oscar Moreno MD - Oscar Moreno MD P - KKB Job ID: [id number] Document ID: [id number] cc: Kamini Gore MD documented in this encounter Plan of Treatment Upcoming Encounters Date Type Department Care Team (Late st Contact Info) Description 02/21/2024 9:45 EDT Office Visit [facility] Adult Primary Care - [address] [phone] Carrington Calderon MD [address] [place] [phone] 02/27/2024 8:30 EDT Telemedicine [facility] Sleep Program - [address] [phone] Dwight Colbert [address] [place] [phone] 02/29/2024 10:30 ED[facility] Radiology Nuclear Medicine and PET - [address] [address] 02/29/2024 14:[address] [facility] Radiology Nuclear Medicine and PET [address] [phone] 03/01/2024 8:[address] [facility] Radiology Nuclear Medicine and PET - [address] [phone] 03/01/2024 9:[address] [facility] Radiology Nuclear Medicine and PET [address] [phone] documented as of this encounter Visit Diagnoses Not on filedocumented in this encounter
--- OUTSIDE RECORDS SUMMARY | 2024-02-10 01:31 | XMS_ITS | Encounter Summary ---
Author Organization [facility] Address [address] [place] [address] Care Team Providers Care Tin Can Feeder Name Role Phone Unavailable Primary Care Provider Unavailabl e Encounter Details Date Type Department Care Team (Latest Contact Info) Description 01/10/2006 10:03 EDT - 01/10/2006 11:59 EDT Hospital Encounter [facility] - Maple conversion [address] [place], [place] [address] Myles Jackson Discharge Disposition: Auto Discharge Social [...] [facility] Adult Primary Care - [address] [phone] Carrington Calderon MD [address] [phone] 02/27/2024 8:30 EDT Telemedicine [facility] Sleep Program - [address] [address] Dwight Colbert [address] [place], [place] [phone] 02/29/2024 10:[address] [facility] Radiology Nuclear Medicine and PET - [address] [address] 02/29/2024 14:[address] [facility] Radiology Nuclear Medicine and PET [address] [address] 03/01/2024 8:[address] [facility] Radiology Nuclear Medicine and PET [address] [address] 03/01/2024 9:[address] [facility] Radiology Nuclear Medicine and PET [address] [phone] documented as of this encounter Procedures Procedure [...]
--- OUTSIDE RECORDS SUMMARY | 2024-02-10 01:31 | XMS_ITS ---
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 Name Role Phone OLIVE KING Registered Nurse Unavailable Unavailable Xwatchlist Unavailable ROSA ISELA Judge Attending Unavailable [facility] Unavailable LORIN Jung Primary Unavailable UNLISTED PROVIDER - REQUESTED Xhandoff Un available Results NOVA GLUCOSE FINGER HEEL CAP ILLARY - Collect Date/Time: 01/07/2024 07:46 [facility] ID: [id number] [address] [place] [address], [id number] LOINC: 73786-2 Test Value Unit Reference Range Code Code System Flag GLUCOSE CAP 214 mg/dL L=70 H=116 95687-0 LOINC H MAGNESIUM SERUM* - Collect D ate/Time: 01/07/2024 07:05 [facility] ID: [id number] [address] [place] [address], [address] LOINC: 20043-7 Test Value Unit Reference Range Code Code System Flag MAGNESIUM 2.0 mg/dL L=1.8 H=2.4 98588-2 LOINC BASIC METABOLIC PANEL (BMP) - Collect Date/Time: 01/07/2024 07:05 [facility] ID: [id number] [address] [place] [address], [address] LOINC: 63359-2 Test Value Unit Reference Range Code Code System Flag GLUCOSE 209 mg/dL L=70 H=116 2345-7 LOINC H BUN 12 mg/dL L=6 H=25 3094-0 LOINC CREATININE 0.64 mg/dL L=0.51 H=0.95 2160-0 LOINC SODIUM SERUM 132 mmol/L L=136 H=145 2951-2 LOINC L POTASSIUM SERUM 3.5 mmol/L L=3.4 H=5.2 2823-3 LOINC CHLORIDE SERUM 97 mmol/L L=96 H=110 2075-0 LOINC CARBON DIOXIDE (CO2) 23 mmol/L L=22 H=34 2028-9 LOINC ANION GAP 12.1 mmol/L 81407-3 LOINC CALCIUM SERUM 8.6 mg/dL L=8.2 H=10.2 45900-9 LOINC AGE 38 years eGFR (non-Afr.Amer.) 104 mL/min 64711-5 LOINC eGFR (Afr-Kittitian) > 120 mL/min 78449-7 LOINC CBC W/ DIFFERENTIAL* - Colle ct Date/Time: 01/07/2024 07:05 [facility] ID: [id number] [address] [place], [place], [address] LOINC: 79760-7 Test Value Unit Reference Range Code Code System Flag WBC 16.49 th/cmm L=5.00 H=10.00 6690-2 LOINC H NEUT % 65.2 % L=40.0 H=80.0 LYMPH % 26.0 % L=10.0 H=50.0 MONO % 7.0 % L=2.0 H=12.0 75559-7 LOINC EOS % 1.2 % L=0.0 H=8.0 BASO % 0.2 % L=0.0 H=3.0 IG % 0.4 % L=0.0 H=1.1 2514-8 LOINC NRBC % 0.0 % L=0.0 H=0.0 01391-8 LOINC NEUT abs count 10.8 th/cmm L=1.6 H=8.4 751-8 LOINC H LYMPH abs count 4.3 th/cmm L=1.5 H=4.0 731-0 LOINC H MONO abs count 1.2 th/cmm L=0.2 H=1.0 742-7 LOINC H EOS abs count 0.2 th/cmm L=0.0 H=0.5 711-2 LOINC BASO abs count 0.0 th/cmm L=0.0 H=0.2 704-7 LOINC IG abs count 0.1 th/cmm L=0.0 H=0.1 81290-1 LOINC NRBC abs count 0.0 mil/cmm L=0.0 H=0.0 71364-6 LOINC RBC 4.12 mil/cmm L=3.90 H=5.40 789-8 LOINC HEMOGLOBIN 12.9 gm/dL L=12.0 H=16.0 718-7 LOINC HEMATOCRIT 38 % L=37 H=47 4544-3 LOINC MCV 91 fL L=82 H=92 787-2 LOINC MCH 31.3 pg L=27.0 H=31.0 785-6 LOINC H MCHC 34.3 % L=32.0 H=36.0 786-4 LOINC RDW-SD 41.1 fL L=39.0 H=49.0 788-0 LOINC PLATELET COUNT 512 th/cmm L=150 H=450 777-3 LOINC H NOVA GLUCOSE FINGER HEEL CAP ILLARY - Collect Date/Time: 01/06/2024 20:49 [facility] ID: [id number] [address] [place], [place], [id number] LOINC: 29395-0 Test Value Unit Reference Range Code Code System Flag GLUCOSE CAP 239 mg/dL L=70 H=116 49187-1 LOINC H LACTIC ACID - Collect Date/T nestor: 01/06/2024 13:30 [facility] ID: [id number] [address] [place], [place], [address] LOINC: Test Value Unit Reference Range Code Code System Flag LACTIC ACID 1.8 mmol/L L=0.7 H=2.1 01453-2 LOINC NOVA GLUCOSE FINGER HEEL CAP ILLARY - Collect Date/Time: 01/06/2024 12:54 [facility] ID: [id number] [address] [place], [place], [id number] LOINC: 25073-0 Test Value Unit Reference Range Code Code System Flag GLUCOSE CAP 329 mg/dL L=70 H=116 29428-0 LOINC H DRUG SCN 13 PANEL (MEDTOX)* - Collect Date/Time: 01/06/2024 12:15 [facility] ID: [id number] [address] [place], [place], [id number] LOINC: 89038-8 Test Value Unit Reference Range Code Code System Flag CANNABINOIDS POSITIVE Cutoff = 50 ng/mL 95330-4 LOINC A PHENCYCLIDINE NEGATIVE Cutoff = 25 ng/mL 19167-5 LOINC COCAINE NEGATIVE Cutoff = 150 ng/mL 15364-6 LOINC METHAMPHETAMINES NEGATIVE Cutoff = 50 0 ng/mL 19856-5 LOINC OPIATES NEGATIVE Cutoff = 100 ng/mL 75402-1 LOINC AMPHETAMINES NEGATIVE Cutoff = 500 ng/mL 00077-1 LOINC BENZODIAZEPINES NEGATIVE Cutoff = 150 ng/mL 38563-8 LOINC TRICYCLIC ANTIDEP NEGATIVE Cutoff = 3 00 ng/mL 3533-7 LOINC METHADONE NEGATIVE Cutoff = 200 ng/mL 61972-1 LOINC BARBITURATES NEGATIVE Cutoff = 200 ng/mL 10331-0 LOINC OXYCODONE POSITIVE Cutoff = 100 ng/mL 38015-6 LOINC A BUPRENORPHINE NEGATIVE Cutoff = 10 mg/mL 3414-0 LOINC URINALYSIS WITH MICROSCOPIC* - Collect Date/Time: 01/06/2024 12:15 [facility] ID: [id number] [address] [place], [place], [address] LOINC: 65106-4 Test Value Unit Reference Range Code Code System Flag COLLECTION MODE: CLEAN CATCH 94542-7 LOINC Color YELLOW yellow 5778-6 LOINC Appearance HAZY clear 5767-9 LOINC Glucose urine >=1000 negative mg/dl 79276-3 LOINC A Bilirubin NEGATIVE negative 5770-3 LOINC Ketones >=80 negative mg/dl 2514-8 LOINC A Spec gravity 1.025 1.003 - 1.030 5811-5 LOINC pH urine 5.5 5.0 - 7.0 2756-5 LOINC Protein TRACE negative mg/dl 60983-8 LOINC Urobilinogen 0.2 <or= 1 EU/dl 80296-2 LOINC Nitrite NEGATIVE negative 5802-4 LOINC Blood TRACE-IN negative 5794-3 LOINC A Leukocytes NEGATIVE negative 92782-8 LOINC WBCs 0-5 0-5 / hpf 22024-8 LOINC RBCs 0-5 0-5 / hpf 20964-7 LOINC Epith cells 5-10 0-5 / hpf 28212-9 LOINC Cell types squamous Crystals none none Bacteria none none Mucus none none Casts none none /lpf Other KETONES QUAL - Collect Date/ Time: 01/06/2024 11:15 [facility] ID: [id number] [address] [place], [place], [address] LOINC: 5567-3 Test Value Unit Reference Range Code Code System Flag ACETONE SMALL 5567-3 LOINC CBC W/ DIFFERENTIAL* - Colle ct Date/Time: 01/06/2024 11:15 [facility] ID: [id number] [address] [place] [address], [address] LOINC: 63659-5 Test Value Unit Reference Range Code Code System Flag WBC 15.83 th/cmm L=5.00 H=10.00 6690-2 LOINC H NEUT % 87.2 % L=40.0 H=80.0 H LYMPH % 10.4 % L=10.0 H=50.0 MONO % 1.5 % L=2.0 H=12.0 09945-2 LOINC L EOS % 0.1 % L=0.0 H=8.0 BASO % 0.4 % L=0.0 H=3.0 IG % 0.4 % L=0.0 H=1.1 2514-8 LOINC NRBC % 0.0 % L=0.0 H=0.0 41439-6 LOINC NEUT abs count 13.8 th/cmm L=1.6 H=8.4 751-8 LOINC H LYMPH abs count 1.7 th/cmm L=1.5 H=4.0 731-0 LOINC MONO abs count 0.2 th/cmm L=0.2 H=1.0 742-7 LOINC EOS abs count 0.0 th/cmm L=0.0 H=0.5 711-2 LOINC BASO abs count 0.1 th/cmm L=0.0 H=0.2 704-7 LOINC IG abs count 0.1 th/cmm L=0.0 H=0.1 49564-9 LOINC NRBC abs count 0.0 mil/cmm L=0.0 H=0.0 78062-1 LOINC RBC 4.16 mil/cmm L=3.90 H=5.40 789-8 LOINC HEMOGLOBIN 13.2 gm/dL L=12.0 H=16.0 718-7 LOINC HEMATOCRIT 39 % L=37 H=47 4544-3 LOINC MCV 93 fL L=82 H=92 787-2 LOINC H MCH 31.7 pg L=27.0 H=31.0 785-6 LOINC H MCHC 34.2 % L=32.0 H=36.0 786-4 LOINC RDW-SD 42.3 fL L=39.0 H=49.0 788-0 LOINC PLATELET COUNT 507 th/cmm L=150 H=450 777-3 LOINC H SED RATE* - Collect Date/Jona e: 01/06/2024 11:15 [facility] ID: [id number] [address] [place] [address], [address] LOINC: 4537-7 Test Value Unit Reference Range Code Code System Flag SED. RATE 96 mm/hr L=0 H=20 4537-7 LOINC H C REACTIVE PROTEIN HIGH SENS ITIVITY* - Collect Date/Time: 01/06/2024 11:15 [facility] ID: [id number] [address] [place] [address], [address] LOINC: 92942-5 Test Value Unit Reference Range Code Code System Flag CRP-HIGH SENS. 64.92 mg/L L=0.00 H=3.00 02828-4 LOINC H CRP-HIGH SENS 6.49 mg/dL L=0.00 H=0.30 65875-4 LOINC H SALICYLATE SERUM* - Collect Date/Time: 01/06/2024 11:15 [facility] ID: [id number] [address] [place] [address], [address] LOINC: 4024-6 Test Value Unit Reference Range Code Code System Flag SALICYLATE 4.9 mg/dL L=15.0 H=30.0 4024-6 LOINC L ACETAMINOPHEN* - Collect Norm e/Time: 01/06/2024 11:15 [facility] ID: [id number] [address] [place] [address], [address] LOINC: 3298-7 Test Value Unit Reference Range Code Code System Flag ACETAMINOPHEN < 2.0 ug/mL L=10.0 H=20.0 3298-7 LOINC L ALCOHOL (ETHANOL)* - Collect Date/Time: 01/06/2024 11:15 [facility] ID: [id number] [address] [place] [address], [address] LOINC: 48403-1 Test Value Unit Reference Range Code Code System Flag ALCOHOL (ETHANOL) 3 mg/dL 29436-1 LOINC PHOSPHORUS SERUM - Collect D ate/Time: 01/06/2024 11:15 [facility] ID: [id number] [address] [place] [address], [id number] LOINC: 2777-1 Test Value Unit Reference Range Code Code System Flag PHOSPHORUS SERUM 3.3 mg/dL L=2.2 H=4.2 MAGNESIUM SERUM* - Collect D ate/Time: 01/06/2024 11:15 [facility] ID: [id number] [address] [place] [address], [address] LOINC: 00628-5 Test Value Unit Reference Range Code Code System Flag MAGNESIUM 1.6 mg/dL L=1.8 H=2.4 32564-3 LOINC L OSMOLALITY SERUM - Collect D ate/Time: 01/06/2024 11:15 [facility] ID: [id number] [address] [place], [place], [id number] LOINC: 2692-2 Test Value Unit Reference Range Code Code System Flag Osmolality 308 275-295 H LACTIC ACID - Collect Date/T nestor: 01/06/2024 11:15 [facility] ID: [id number] [address] [place] [address], [address] LOINC: Test Value Unit Reference Range Code Code System Flag LACTIC ACID 2.7 mmol/L L=0.7 H=2.1 69366-4 LOINC H COMPREHENSIVE METABOLIC PANE L (CMP) - Collect Date/Time: 01/06/2024 11:15 [facility] ID: [id number] [address] [place] [address], [address] LOINC: 38874-3 Test Value Unit Reference Range Code Code System Flag GLUCOSE 340 mg/dL L=70 H=116 2345-7 LOINC H BUN 15 mg/dL L=6 H=25 3094-0 LOINC CREATININE 0.76 mg/dL L=0.51 H=0.95 2160-0 LOINC SODIUM SERUM 137 mmol/L L=136 H=145 2951-2 LOINC POTASSIUM SERUM 4.1 mmol/L L=3.4 H=5.2 2823-3 LOINC CHLORIDE SERUM 100 mmol/L L=96 H=110 2075-0 LOINC CARBON DIOXIDE (CO2) 22 mmol/L L=22 H=34 2028-9 LOINC ANION GAP 15.1 mmol/L 20468-7 LOINC CALCIUM SERUM 8.8 mg/dL L=8.2 H=10.2 37749-9 LOINC BILIRUBIN TOTAL 0.3 mg/dL L=0.0 H=1.3 1975-2 LOINC ALK. PHOS. 121 U/L L=46 H=116 6768-6 LOINC H SGOT (AST) 13 U/L L=15 H=37 1920-8 LOINC L SGPT (ALT) 18 U/L L=12 H=78 1742-6 LOINC TOTAL PROTEIN 7.7 gm/dL L=6.0 H=8.0 2885-2 LOINC ALBUMIN 2.8 gm/dL L=3.4 H=5.0 1751-7 LOINC L AGE 38 years eGFR (non-Afr.Amer.) 85 mL/min 75283-4 LOINC eGFR (Afr-Kittitian) 103 mL/min 80974-6 LOINC ORDER VENOUS BLOOD GAS* - Co llect Date/Time: 01/06/2024 11:10 [facility] ID: [id number] [address] [place] [address], [id number] LOINC: Test Value Unit Reference Range Code Code System Flag Specimen type: VENOUS pH (venous) 7.32 L=7.38 H=7.46 2746-6 LOINC L PCO2 (venous) 40.0 mm Hg L=41.0 H=51.0 2703-7 LOINC L PO2 (venous) 33 mm Hg L=30 H=50 2705-2 LOINC HCO3 21 mmol/L L=22 H=26 1960-4 LOINC L TCO2 (venous) 22 mmol/L L=22 H=28 3533-7 LOINC BASE EXCESS (venous) -5 mmol/L L=-2 H=3 3097-3 LOINC L Assist vent. Resp. Rate /min. Temp. NOVA GLUCOSE FINGER HEEL CAP ILLARY - Collect Date/Time: 01/06/2024 11:07 [facility] ID: [id number] [address] [place] [address], [id number] LOINC: 25287-0 Test Value Unit Reference Range Code Code System Flag GLUCOSE CAP 342 mg/dL L=70 H=116 97539-3 LOINC H Social History Type Status Start Date End Date Code Code Syst em Sex Female Vital Signs Vital Sign Value Unit Stutsman Value Stutsman Unit Date/Time Recent/Initial? Code Code System Body Mass Index 37.08 kg/m2 01/06/2024 13:53 Initial 73400 -5 [facility] Systolic Blood Pressure 132 mm[Hg] 01/07/2024 03:48 Most Recent 8480- 6 [facility] Diastolic Blood Pressure 87 mm[Hg] 01/07/2024 03:48 Most Recent 8462- 4 [facility] Systolic Blood Pressure 153 mm[Hg] 01/06/2024 11:09 Initial 8480- 6 [facility] Diastolic Blood Pressure 90 mm[Hg] 01/06/2024 11:09 Initial 8462- 4 [facility] Body Surface Area 2.10 m2 01/06/2024 13:53 Initial 3140- 1 [facility] Height 162.560 0 cm 64.00 in 01/06/2024 13:53 Initial 8302- 2 [facility] O2 Saturation 96 % 2023 05:08 Most Recent 23316 -5 [facility] O2 Saturation 100 % 2023 11:09 Initial 85672 -5 [facility] Inhaled Oxygen Flow Rate 4.00 L/min 01/06/2024 11:30 Initial 3151- 8 [facility] Pulse 113.0 /min 01/07/2024 05:08 Most Recent 8867- 4 [facility] Pulse 110.0 /min 01/06/2024 11:09 Initial 8867- 4 [facility] Respiration 22 /min 01/07/20 24 05:08 Most Recent 9279- 1 [facility] Respiration 12 /min 01/06/20 24 11:09 Initial 9279- 1 [facility] Temperature 37.9 Mesha 100.2 F 01/07/20 24 03:48 Most Recent 8310- 5 [facility] Temperature 36.2 Mesha 97.2 F 01/06/20 24 11:09 Initial 8310- 5 [facility] Weight 97.98 kg 216.00 lbs 01/06/2024 13:53 Initial 01281 -7 [facility] Medications Medication Start Date End Date Route Frequency Dose Code Code System Medication Instructions Home Meds Bactrim DS 800MG-160MG Oral Tablet 01/07/2024 Unknown ORAL TWICE A DAY 1 unit(s) 095757 RxNorm TAKE 1 EACH ORAL TWICE A DAY DULoxetine HCl 40MG Oral Capsule, Delayed Release 01/07/2024 Unknown ORAL DAILY 40 MILLIGRAMS 388311 RxNorm TAKE 40 MILLIGRAM S ORAL DAILY Gabapentin 300MG Oral Capsule 01/07/2024 Unknown ORAL DAILY 300 MILLIGRAMS 086582 RxNorm TAKE 300 MILLIGRAM S ORAL DAILY Gabapentin 300MG Oral Tablet 01/07/2024 Unknown ORAL BEDTIME 1200 MILLIGRAMS 1846435 RxNorm TAKE 1200 MILLIGRAM S ORAL BEDTIME Januvia 25MG Oral Tablet 01/07/2024 Unknown ORAL DAILY 25 MILLIGRAMS 644431 RxNorm TAKE 25 MILLIGRAM S ORAL DAILY Jardiance 10MG Oral Tablet 01/07/2024 Unknown ORAL DAILY 10 MILLIGRAMS 5742101 RxNorm TAKE 10 MILLIGRAM S ORAL DAILY Lantus SoloStar 100U/1ML Subcutaneous Solution 01/07/2024 Unknown SUBCUTAN EOUS BEDTIME 40 UNIT RxNorm INJECT 40 UNIT SUBCUTANE OUS BEDTIME Lidocaine 5% Topical application Patch, Extended Release 01/07/2024 Unknown TOPICAL APPLICAT ION DAILY 1 unit(s) 7561804 RxNorm 1 EACH TOPICAL APPLICATI ON DAILY Omeprazole 40MG Oral Capsule, Delayed Release 01/07/2024 Unknown ORAL DAILY 40 MILLIGRAMS 152600 RxNorm TAKE 40 MILLIGRAM S ORAL DAILY Ondansetron 4MG Oral Tablet, Disintegrating 01/07/2024 Unknown ORAL NEEDED EVERY 6 HOURS 4 MILLIGRAMS 376057 RxNorm TAKE 4 MILLIGRAM S ORAL NEEDED EVERY 6 HOURS Reglan 10MG Oral Tablet 01/07/2024 Unknown ORAL NEEDED EVERY 6 HOURS 10 MILLIGRAMS 374583 RxNorm TAKE 10 MILLIGRAM S ORAL NEEDED EVERY 6 HOURS insulin aspart 100U/1ML Injection Solution 01/07/2024 Unknown INJECTIO N THREE TIMES A DAY 1 UNIT 806228 RxNorm 1 UNIT INJECTION THREE TIMES A DAY oxyCODONE HCl-acetaminoph en 5MG-325MG Oral Tablet 01/07/2024 Unknown ORAL NEEDED EVERY 6 HOURS 1 TABLET 1069089 RxNorm TAKE 1 TABLET ORAL NEEDED EVERY 6 HOURS traMADol HCl 50MG Oral Tablet 01/07/2024 Unknown ORAL NEEDED EVERY 6 HOURS 50 MILLIGRAMS 906037 RxNorm TAKE 50 MILLIGRAM S ORAL NEEDED EVERY 6 HOURS traZODone hydrochloride 50MG Oral Tablet 01/07/2024 Unknown ORAL BEDTIME 50 MILLIGRAMS 916281 RxNorm TAKE 50 MILLIGRAM S ORAL BEDTIME Assessment You had the following problems:NAUSEAVOMITINGGASTROPARESIS WITH DMT2DM Hospital Discharge Instructions Should you have any questions prior to discharge, please contact a member of your healthcare team. If you have left the hospital and have any questions, please contact your primary care physician. Reason For Referral No Data Found Procedures Procedure Name Date Status Code Code Syste m Amputation of left foot completed [id number] S NOMEDCT Problems Problem Start Date Resolved Date Status Code Code System NAUSEA active 536772923 SNOMED-CT VOMITING active 053643849 SNOMED-CT GASTROPARESIS WITH DM active 50920226 4 SNOMED-CT T2DM active 96021163 SNOMED-CT DIABETES TYPE I 01/06/2024 resolved 43617414 SNO MED-CT GASTROPARESIS 01/06/2024 resolved 458782002 SNOME D-CT Allergies and Adverse Reactions Allergy Substance Reaction Severity Start Date Concern Status Co de Code System No Known Drug Allergies Active 975609825 SNOMED-CT Plan of Treatment Plan # Nausea, vomiting, status post transmetatarsal amputation 01/03/2024. # History of gastroparesis # AMS presentation in ED with improvement with Narcan IV fluid while vomiting, advance diet as tolerated. Encourage fluids, ice chips slowly. Serial laboratory monitoring. Replete electrolytes as needed. Continue previously prescribed Bactrim DS by pocket cutter at [facility] Limit narcotics as much as possible to breakthrough pain, IV Tylenol TID Ondansetron and metoclopramide for nausea management Decrease gabapentin PM dose and hold trazodone and tramadol due to AMS presentation in ED [facility] consult-->Dr. Carvalho saw patient in ED, will continue on prescribed Bactrim that has not been started yet, hold on further IV antibiotics at this time ( received vancomycin IV and metronidazole IV in the ED) # T2DM Continue home long-acting insulin at reduced dose ISS Continue home Andie Weiner Encounters Encounter Diagnosis Start Date Code Code Sys tem Nausea with vomiting, unspecified 01/06/2024 SNOMED-CT Personal Care Team Section Performer Name Performer Role Active Date Inactive Da te Discharge Summary Notes [facility] 01/07/2024 10:36 Patient Name: CATARINA SERNA Date of Service: 01/07/2024 10:33 Discharge Date: 01/07/2024 Admission Diagnosis: Vomiting Gastroparesis Altered mental status Discharge Diagnosis: Vomiting Gastroparesis Altered mental status : Primary Care Physician: LORIN Jung Consulting Physician(s): Procedures: Recommendations: Discharge to home Follow-up with podiatry this week as scheduled Be cautious with the use of narcotics (oxycodone/Acetaminophen) Discharge Medications: Discharge Meds List Bactrim DS 800MG-160MG Oral Tablet, TAKE 1 EACH ORAL TWICE A DAY DULoxetine HCl 40MG Oral Capsule, Delayed Release, TAKE 40 MILLIGRAMS ORAL DAILY Gabapentin 300MG Oral Capsule, TAKE 300 MILLIGRAMS ORAL DAILY Gabapentin 300MG Oral Tablet, TAKE 1200 MILLIGRAMS ORAL BEDTIME insulin aspart 100U/1ML Injection Solution, 1 UNIT INJECTION THREE TIMES A DAY Januvia 25MG Oral Tablet, TAKE 25 MILLIGRAMS ORAL DAILY Jardiance 10MG Oral Tablet, TAKE 10 MILLIGRAMS ORAL DAILY Lantus SoloStar 100U/1ML Subcutaneous Solution, INJECT 40 UNIT SUBCUTANEOUS BEDTIME Lidocaine 5% Topical application Patch, Extended Release, 1 EACH TOPICAL APPLICATION DAILY Omeprazole 40MG Oral Capsule, Delayed Release, TAKE 40 MILLIGRAMS ORAL DAILY Ondansetron 4MG Oral Tablet, Disintegrating, TAKE 4 MILLIGRAMS ORAL NEEDED EVERY 6 HOURS oxyCODONE HCl-acetaminophen 5MG-325MG Oral Tablet, TAKE 1 TABLET ORAL NEEDED EVERY 6 HOURS Reglan 10MG Oral Tablet, TAKE 10 MILLIGRAMS ORAL NEEDED EVERY 6 HOURS traMADol HCl 50MG Oral Tablet, TAKE 50 MILLIGRAMS ORAL NEEDED EVERY 6 HOURS traZODone hydrochloride 50MG Oral Tablet, TAKE 50 MILLIGRAMS ORAL BEDTIME History of Present Illness 38-year-old female patient with PMH T2DM with diabetic neuropathy, recent transmetatarsal amputation 4 days ago for neuropathic full-thickness ulcer and cellulitis at [facility], gastroparesis, migraines, anxiety, depression, chronic low back pain, presents to the emergency department for complaints of nausea and vomiting today. patient was seen by pocket cutter yesterday at [facility] and her recent surgical site showed increased redness and was started on Bactrim, which patient has not yet started. In the ED vital signs stable with BP 153/90, heart rate 110, respiratory rate 12, afebrile at 36.2 with SpO2 100% on room air. patient initially presented with somnolence, nauseous and dry mouth. She was administered IV fluid as well as Narcan upon presentation to the ED with improvement her mental status. She states that she has been taking oxycodone at home, in addition to her gabapentin and tramadol. She has had significant nausea per her report and has had multiple episodes like this in the past which required hospitalization and IV fluids. Notable labs include glucose 329, U tox positive for cannabinoids and oxycodone, UA with trace blood, WBC .50.8 with neutrophils 87%, initial lactate 2.7 with repeat 1.8, magnesium 1.6, VBG 7.32/40 with bicarb 21 and base excess -5. Patient received acetaminophen IV, metoclopramide, ondansetron, droperidol, Maalox/lidocaine, insulin, Narcan as stated above, and vancomycin and metronidazole IV. patient's left foot wound evaluated by [facility] as well as hospital medicine and will hold further IV antibiotics and start prescribed Bactrim DS per [facility] podiatry. Patient will be admitted to hospital medicine for symptomatic treatment of gastroparesis Hospital Course Patient Was provided with intravenous fluids and antiemetics. By the following morning she was feeling much better, ate her breakfast. She has had no further vomiting. She is eager to be discharged home. Labs last 72 hours Test Results Units Reference Range Collected GLUCOSE 209 H mg/dL L=70 H=116 01/07/2024 07:05 BUN 12 mg/dL L=6 H=25 01/07/2024 07:05 CREATININE 0.64 mg/dL L=0.51 H=0.95 01/07/2024 07:05 SODIUM SERUM 132 L mmol/L L=136 H=145 01/07/2024 07:05 POTASSIUM SERUM 3.5 mmol/L L=3.4 H=5.2 01/07/2024 07:05 CHLORIDE SERUM 97 mmol/L L=96 H=110 01/07/2024 07:05 CARBON DIOXIDE (CO2) 23 mmol/L L=22 H=34 01/07/2024 07:05 ANION GAP 12.1 mmol/L 01/07/2024 07:05 CALCIUM SERUM 8.6 mg/dL L=8.2 H=10.2 01/07/2024 07:05 WBC 16.49 H th/cmm L=5.00 H=10.00 01/07/2024 07:05 HEMOGLOBIN 12.9 gm/dL L=12.0 H=16.0 01/07/2024 07:05 HEMATOCRIT 38 % L=37 H=47 01/07/2024 07:05 PLATELET COUNT 512 H th/cmm L=150 H=450 01/07/2024 07:05 MAGNESIUM 2.0 mg/dL L=1.8 H=2.4 01/07/2024 07:05 LACTIC ACID 1.8 mmol/L L=0.7 H=2.1 01/06/2024 13:30 CULT BLOOD CULTURE 01/06/2024 12:24 CANNABINOIDS POSITIVE A POSITIVE Cutoff = 50 ng/mL 01/06/2024 12:15 PHENCYCLIDINE NEGATIVE NEGATIVE Cutoff = 25 ng/mL 01/06/2024 12:15 COCAINE NEGATIVE NEGATIVE Cutoff = 150 ng/mL 01/06/2024 12:15 METHAMPHETAMINES NEGATIVE NEGATIVE Cutoff = 500 ng/mL 01/06/2024 12:15 OPIATES NEGATIVE NEGATIVE Cutoff = 100 ng/mL 01/06/2024 12:15 AMPHETAMINES NEGATIVE NEGATIVE Cutoff = 500 ng/mL 01/06/2024 12:15 BENZODIAZEPINES NEGATIVE NEGATIVE Cutoff = 150 ng/mL 01/06/2024 12:15 TRICYCLIC ANTIDEP NEGATIVE NEGATIVE Cutoff = 300 ng/mL 01/06/2024 12:15 METHADONE NEGATIVE NEGATIVE Cutoff = 200 ng/mL 01/06/2024 12:15 BARBITURATES NEGATIVE NEGATIVE Cutoff = 200 ng/mL 01/06/2024 12:15 OXYCODONE POSITIVE A POSITIVE Cutoff = 100 ng/mL 01/06/2024 12:15 BUPRENORPHINE NEGATIVE NEGATIVE Cutoff = 10 mg/mL 01/06/2024 12:15 COLLECTION MODE: CLEAN CATCH CLEAN CATCH 01/06/2024 12:15 Color YELLOW YELLOW yellow 01/06/2024 12:15 Appearance HAZY HAZY clear 01/06/2024 12:15 Glucose urine >=1000 A >=1000 negative mg/dl 01/06/2024 12:15 Bilirubin NEGATIVE NEGATIVE negative 01/06/2024 12:15 Ketones >=80 A >=80 negative mg/dl 01/06/2024 12:15 Spec gravity 1.025 1.025 1.003 - 1.030 01/06/2024 12:15 pH urine 5.5 5.5 5.0 - 7.0 01/06/2024 12:15 Protein TRACE TRACE negative mg/dl 01/06/2024 12:15 Urobilinogen 0.2 0.2 01/06/2024 12:15 Nitrite NEGATIVE NEGATIVE negative 01/06/2024 12:15 Blood TRACE-IN A TRACE-IN negative 01/06/2024 12:15 Leukocytes NEGATIVE NEGATIVE negative 01/06/2024 12:15 WBCs 0-5 0-5 0-5 / hpf 01/06/2024 12:15 Epith cells 5-10 5-10 0-5 / hpf 01/06/2024 12:15 Cell types squamous squamous 01/06/2024 12:15 Crystals none none none 01/06/2024 12:15 Bacteria none none none 01/06/2024 12:15 Mucus none none none 01/06/2024 12:15 Casts none none none /lpf 01/06/2024 12:15 Other 01/06/2024 12:15 ACETAMINOPHEN <2.0 L ug/mL L=10.0 H=20.0 01/06/2024 11:15 ALCOHOL (ETHANOL) 3 mg/dL 01/06/2024 11:15 CRP-HIGH SENS. 64.92 H mg/L L=0.00 H=3.00 01/06/2024 11:15 CRP-HIGH SENS 6.49 H mg/dL L=0.00 H=0.30 01/06/2024 11:15 WBC 15.83 H th/cmm L=5.00 H=10.00 01/06/2024 11:15 HEMOGLOBIN 13.2 gm/dL L=12.0 H=16.0 01/06/2024 11:15 HEMATOCRIT 39 % L=37 H=47 01/06/2024 11:15 PLATELET COUNT 507 H th/cmm L=150 H=450 01/06/2024 11:15 GLUCOSE 340 H mg/dL L=70 H=116 01/06/2024 11:15 BUN 15 mg/dL L=6 H=25 01/06/2024 11:15 CREATININE 0.76 mg/dL L=0.51 H=0.95 01/06/2024 11:15 SODIUM SERUM 137 mmol/L L=136 H=145 01/06/2024 11:15 POTASSIUM SERUM 4.1 mmol/L L=3.4 H=5.2 01/06/2024 11:15 CHLORIDE SERUM 100 mmol/L L=96 H=110 01/06/2024 11:15 CARBON DIOXIDE (CO2) 22 mmol/L L=22 H=34 01/06/2024 11:15 ANION GAP 15.1 mmol/L 01/06/2024 11:15 CALCIUM SERUM 8.8 mg/dL L=8.2 H=10.2 01/06/2024 11:15 BILIRUBIN TOTAL 0.3 mg/dL L=0.0 H=1.3 01/06/2024 11:15 ALK. PHOS. 121 H U/L L=46 H=116 01/06/2024 11:15 SGOT (AST) 13 L U/L L=15 H=37 01/06/2024 11:15 SGPT (ALT) 18 U/L L=12 H=78 01/06/2024 11:15 TOTAL PROTEIN 7.7 gm/dL L=6.0 H=8.0 01/06/2024 11:15 ALBUMIN 2.8 L gm/dL L=3.4 H=5.0 01/06/2024 11:15 CULT BLOOD CULTURE 01/06/2024 11:15 ACETONE SMALL SMALL 01/06/2024 11:15 LACTIC ACID 2.7 H mmol/L L=0.7 H=2.1 01/06/2024 11:15 MAGNESIUM 1.6 L mg/dL L=1.8 H=2.4 01/06/2024 11:15 Osmolality 308 H 308 275-295 01/06/2024 11:15 PHOSPHORUS SERUM 3.3 mg/dL L=2.2 H=4.2 01/06/2024 11:15 SALICYLATE 4.9 L mg/dL L=15.0 H=30.0 01/06/2024 11:15 SED. RATE 96 H mm/hr L=0 H=20 01/06/2024 11:15 EKG ORDER TRACING 12 LEAD 01/06/2024 11:12 Specimen type: VENOUS VENOUS 01/06/2024 11:10 pH (venous) 7.32 L L=7.38 H=7.46 01/06/2024 11:10 PCO2 (venous) 40.0 L mm Hg L=41.0 H=51.0 01/06/2024 11:10 PO2 (venous) 33 mm Hg L=30 H=50 01/06/2024 11:10 HCO3 21 L mmol/L L=22 H=26 01/06/2024 11:10 TCO2 (venous) 22 mmol/L L=22 H=28 01/06/2024 11:10 BASE EXCESS (venous) -5 L mmol/L L=-2 H=3 01/06/2024 11:10 Assist vent. 01/06/2024 11:10 Resp. Rate /min. 01/06/2024 11:10 Temp. 01/06/2024 11:10 Physical exam on discharge General: Young woman appears comfortable, no acute distress Heart: Regular rate and rhythm Lungs: Clear Abdomen: The bowel sounds, soft and nontender Extremities: Left foot with wound VAC and dressing in place, status post transmetatarsal amputation Neurologic: Patient awake and alert and oriented History and Physical Notes [facility] 01/06/2024 18:35 Patient Name Age Sex Admission Date/Time CATARINA SERNA 1985 38 years Female 01/06/2024 10:32 01/06/2024 17:23 Admission Date: 01/06/2024 Reason for Admission: Nausea, vomiting Code Status: FULL Attending Physician: Eryn Bush MD Primary Care Physician: LORIN Jung History of Present Illness Chief Complaint: AMS 38-year-old female patient with PMH T2DM with diabetic neuropathy, recent transmetatarsal amputation 4 days ago for neuropathic full-thickness ulcer and cellulitis at [facility], gastroparesis, migraines, anxiety, depression, chronic low back pain, presents to the emergency department for complaints of nausea and vomiting today. patient was seen by pocket cutter yesterday at [facility] and her recent surgical site showed increased redness and was started on Bactrim, which patient has not yet started. In the ED vital signs stable with BP 153/90, heart rate 110, respiratory rate 12, afebrile at 36.2 with SpO2 100% on room air. patient initially presented with somnolence, nauseous and dry mouth. She was administered IV fluid as well as Narcan upon presentation to the ED with improvement her mental status. She states that she has been taking oxycodone at home, in addition to her gabapentin and tramadol. She has had significant nausea per her report and has had multiple episodes like this in the past which required hospitalization and IV fluids. Notable labs include glucose 329, U tox positive for cannabinoids and oxycodone, UA with trace blood, WBC .50.8 with neutrophils 87%, initial lactate 2.7 with repeat 1.8, magnesium 1.6, VBG 7.32/40 with bicarb 21 and base excess -5. Patient received acetaminophen IV, metoclopramide, ondansetron, droperidol, Maalox/lidocaine, insulin, Narcan as stated above, and vancomycin and metronidazole IV. patient's left foot wound evaluated by [facility] as well as hospital medicine and will hold further IV antibiotics and start prescribed Bactrim DS per [facility] podiatry. Patient will be admitted to hospital medicine for symptomatic treatment of gastroparesis. Ordered & Completed Meds Table Ordered Medication Start Date/Time Dosage Route Frequency Status VANCOMYCIN IVPB PREMIX: 1.75GM/350ML 01/06/2024 11:24 120 ml/hr IV PIGGYBACK X1 completed ACETAMINOPHEN INJ IVPB: 1000MG/100ML 01/06/2024 11:25 400 ml/hr IV PIGGYBACK X1 completed MetroNIDAZOLE IVPB PREMIX: 500MG/100ML 01/06/2024 11:27 100 ml/hr IV PIGGYBACK X1 completed METOCLOPRAMIDE INJ SDV: 10MG/2ML 01/06/2024 11:28 10 MG IV PUSH X1 completed SODIUM CHLORIDE 0.9% 1000ML 01/06/2024 11:29 INTRAVENOUS X1 completed ONDANSETRON INJ SDV: 4MG/2ML 01/06/2024 12:14 8 MG IV PUSH X1 completed ALUM/MAG/SIM SUSP: 2400/2400/240MG/30ML 01/06/2024 12:46 15 ML ORAL X1 completed LIDOCAINE VISCOUS 2% 100ML BOTTLE 01/06/2024 12:46 15 ML ORAL X1 completed INSULIN MDV REGULAR: 1000UNITS/10ML 01/06/2024 13:40 5 Unit(s) SUBCUTANEOUS OPTIONS X1 completed NALOXONE INJ SDV: 0.4MG/ML 01/06/2024 11:09 0.4 MG IV PUSH X1 completed DroPERidol INJ SDV: 5MG/2ML 01/06/2024 16:05 0.62 MG IV PUSH X1 completed Past Medical History Diabetes type I, Gastroparesis, Surgery List Amputation of left foot, Family History List: No Family History Available Past Social History: Alcohol use: rarely Drug use: Denies Tobacco: cigarette and cannabis Allergy List No Known Drug Allergies, Medication Active Home Meds Gabapentin 300MG Oral Tablet, 1200 MILLIGRAMS, ORAL, BEDTIME Lidocaine 5% Topical application Patch, Extended Release, 1 EACH, TOPICAL APPLICATION, DAILY Lantus SoloStar 100U/1ML Subcutaneous Solution, 40 UNIT, SUBCUTANEOUS, BEDTIME Jardiance 10MG Oral Tablet, 10 MILLIGRAMS, ORAL, DAILY Omeprazole 40MG Oral Capsule, Delayed Release, 40 MILLIGRAMS, ORAL, DAILY Ondansetron 4MG Oral Tablet, Disintegrating, 4 MILLIGRAMS, ORAL, NEEDED EVERY 6 HOURS insulin aspart 100U/1ML Injection Solution, 1 UNIT, INJECTION, THREE TIMES A DAY Januvia 25MG Oral Tablet, 25 MILLIGRAMS, ORAL, DAILY DULoxetine HCl 40MG Oral Capsule, Delayed Release, 40 MILLIGRAMS, ORAL, DAILY Bactrim DS 800MG-160MG Oral Tablet, 1 EACH, ORAL, TWICE A DAY Reglan 10MG Oral Tablet, 10 MILLIGRAMS, ORAL, NEEDED EVERY 6 HOURS traZODone hydrochloride 50MG Oral Tablet, 50 MILLIGRAMS, ORAL, BEDTIME traMADol HCl 50MG Oral Tablet, 50 MILLIGRAMS, ORAL, NEEDED EVERY 6 HOURS oxyCODONE HCl-acetaminophen 5MG-325MG Oral Tablet, 1 EACH, ORAL, Gabapentin 300MG Oral Capsule, 300 MILLIGRAMS, ORAL, DAILY Medication Reconciliation Source Patient Family PCP List Home List Pharmacy [facility] or Facility list X X Review of Systems Pertinent positives and negatives listed in HPI Physical Exam Date/Time BP (mm/Hg) Heart Rate Resp Temp (C) SPO2% O2 Device 01/06/2024 16:00 151/85 115 26 99 % Room Air 21% General - NAD, lying in bed, nontoxic-appearing Eyes - noninjected anicteric ENT - normocephalic, atraumatic, MMM, nares patent, oral mucosa normal, poor dentition Cardiovascular - RRR no m/r/g, no JVD, normal S1, S2 Lungs - Clear to auscultation, no use of accessory muscles, no adventitious sounds Skin - skin warm and dry Abdomen - Normal bowel sounds, abdomen soft and diffusely tender Extremities - DP PT 2+ left foot, there is a area of erythema at the base of transmetatarsal amputation, there is a clean dry dressing intact with a Tegaderm over and in place wellington dressing/wound VAC with no drainage noted. Neurological - Alert and oriented x 3, nonfocal exam, answers questions appropriately, answers most questions during history taking Psych-no agitation, no anxiety Labs last 24 hours Test Results Units Reference Range Collected LACTIC ACID 1.8 mmol/L L=0.7 H=2.1 01/06/2024 13:30 CULT BLOOD CULTURE 01/06/2024 12:24 CANNABINOIDS POSITIVE A POSITIVE Cutoff = 50 ng/mL 01/06/2024 12:15 PHENCYCLIDINE NEGATIVE NEGATIVE Cutoff = 25 ng/mL 01/06/2024 12:15 COCAINE NEGATIVE NEGATIVE Cutoff = 150 ng/mL 01/06/2024 12:15 METHAMPHETAMINES NEGATIVE NEGATIVE Cutoff = 500 ng/mL 01/06/2024 12:15 OPIATES NEGATIVE NEGATIVE Cutoff = 100 ng/mL 01/06/2024 12:15 AMPHETAMINES NEGATIVE NEGATIVE Cutoff = 500 ng/mL 01/06/2024 12:15 BENZODIAZEPINES NEGATIVE NEGATIVE Cutoff = 150 ng/mL 01/06/2024 12:15 TRICYCLIC ANTIDEP NEGATIVE NEGATIVE Cutoff = 300 ng/mL 01/06/2024 12:15 METHADONE NEGATIVE NEGATIVE Cutoff = 200 ng/mL 01/06/2024 12:15 BARBITURATES NEGATIVE NEGATIVE Cutoff = 200 ng/mL 01/06/2024 12:15 OXYCODONE POSITIVE A POSITIVE Cutoff = 100 ng/mL 01/06/2024 12:15 BUPRENORPHINE NEGATIVE NEGATIVE Cutoff = 10 mg/mL 01/06/2024 12:15 COLLECTION MODE: CLEAN CATCH CLEAN CATCH 01/06/2024 12:15 Color YELLOW YELLOW yellow 01/06/2024 12:15 Appearance HAZY HAZY clear 01/06/2024 12:15 Glucose urine >=1000 A >=1000 negative mg/dl 01/06/2024 12:15 Bilirubin NEGATIVE NEGATIVE negative 01/06/2024 12:15 Ketones >=80 A >=80 negative mg/dl 01/06/2024 12:15 Spec gravity 1.025 1.025 1.003 - 1.030 01/06/2024 12:15 pH urine 5.5 5.5 5.0 - 7.0 01/06/2024 12:15 Protein TRACE TRACE negative mg/dl 01/06/2024 12:15 Urobilinogen 0.2 0.2 01/06/2024 12:15 Nitrite NEGATIVE NEGATIVE negative 01/06/2024 12:15 Blood TRACE-IN A TRACE-IN negative 01/06/2024 12:15 Leukocytes NEGATIVE NEGATIVE negative 01/06/2024 12:15 WBCs 0-5 0-5 0-5 / hpf 01/06/2024 12:15 Epith cells 5-10 5-10 0-5 / hpf 01/06/2024 12:15 Cell types squamous squamous 01/06/2024 12:15 Crystals none none none 01/06/2024 12:15 Bacteria none none none 01/06/2024 12:15 Mucus none none none 01/06/2024 12:15 Casts none none none /lpf 01/06/2024 12:15 Other 01/06/2024 12:15 ACETAMINOPHEN <2.0 L ug/mL L=10.0 H=20.0 01/06/2024 11:15 ALCOHOL (ETHANOL) 3 mg/dL 01/06/2024 11:15 WBC 15.83 H th/cmm L=5.00 H=10.00 01/06/2024 11:15 HEMOGLOBIN 13.2 gm/dL L=12.0 H=16.0 01/06/2024 11:15 HEMATOCRIT 39 % L=37 H=47 01/06/2024 11:15 PLATELET COUNT 507 H th/cmm L=150 H=450 01/06/2024 11:15 GLUCOSE 340 H mg/dL L=70 H=116 01/06/2024 11:15 BUN 15 mg/dL L=6 H=25 01/06/2024 11:15 CREATININE 0.76 mg/dL L=0.51 H=0.95 01/06/2024 11:15 SODIUM SERUM 137 mmol/L L=136 H=145 01/06/2024 11:15 POTASSIUM SERUM 4.1 mmol/L L=3.4 H=5.2 01/06/2024 11:15 CHLORIDE SERUM 100 mmol/L L=96 H=110 01/06/2024 11:15 CARBON DIOXIDE (CO2) 22 mmol/L L=22 H=34 01/06/2024 11:15 ANION GAP 15.1 mmol/L 01/06/2024 11:15 CALCIUM SERUM 8.8 mg/dL L=8.2 H=10.2 01/06/2024 11:15 BILIRUBIN TOTAL 0.3 mg/dL L=0.0 H=1.3 01/06/2024 11:15 ALK. PHOS. 121 H U/L L=46 H=116 01/06/2024 11:15 SGOT (AST) 13 L U/L L=15 H=37 01/06/2024 11:15 SGPT (ALT) 18 U/L L=12 H=78 01/06/2024 11:15 TOTAL PROTEIN 7.7 gm/dL L=6.0 H=8.0 01/06/2024 11:15 ALBUMIN 2.8 L gm/dL L=3.4 H=5.0 01/06/2024 11:15 CULT BLOOD CULTURE 01/06/2024 11:15 ACETONE SMALL SMALL 01/06/2024 11:15 LACTIC ACID 2.7 H mmol/L L=0.7 H=2.1 01/06/2024 11:15 MAGNESIUM 1.6 L mg/dL L=1.8 H=2.4 01/06/2024 11:15 OSMOLALITY SERUM 01/06/2024 11:15 PHOSPHORUS SERUM 3.3 mg/dL L=2.2 H=4.2 01/06/2024 11:15 SALICYLATE 4.9 L mg/dL L=15.0 H=30.0 01/06/2024 11:15 EKG ORDER TRACING 12 LEAD 01/06/2024 11:12 Specimen type: VENOUS VENOUS 01/06/2024 11:10 pH (venous) 7.32 L L=7.38 H=7.46 01/06/2024 11:10 PCO2 (venous) 40.0 L mm Hg L=41.0 H=51.0 01/06/2024 11:10 PO2 (venous) 33 mm Hg L=30 H=50 01/06/2024 11:10 HCO3 21 L mmol/L L=22 H=26 01/06/2024 11:10 TCO2 (venous) 22 mmol/L L=22 H=28 01/06/2024 11:10 BASE EXCESS (venous) -5 L mmol/L L=-2 H=3 01/06/2024 11:10 Assist vent. 01/06/2024 11:10 Resp. Rate /min. 01/06/2024 11:10 Temp. 01/06/2024 11:10 Radiology: None EKG: Normal sinus rhythm with sinus arrhythmia present, heart rate 98, QTc 464, no previous EKG for comparison. There is no ST elevation, depression, TWI. Formal read pending Problem List T2DM Gastroparesis with DM Vomiting Nausea Plan # Nausea, vomiting, status post transmetatarsal amputation 01/03/2024. # History of gastroparesis # AMS presentation in ED with improvement with Narcan IV fluid while vomiting, advance diet as tolerated. Encourage fluids, ice chips slowly. Serial laboratory monitoring. Replete electrolytes as needed. Continue previously prescribed Bactrim DS by pocket cutter at [facility] Limit narcotics as much as possible to breakthrough pain, IV Tylenol TID Ondansetron and metoclopramide for nausea management Decrease gabapentin PM dose and hold trazodone and tramadol due to AMS presentation in ED [facility] consult-->Dr. Carvalho saw patient in ED, will continue on prescribed Bactrim that has not been started yet, hold on further IV antibiotics at this time ( received vancomycin IV and metronidazole IV in the ED) # T2DM Continue home long-acting insulin at reduced dose ISS Continue home Andie Weiner Patient admitted as observation as I anticipate them to be here less than 2 midnights due to symptoms of nausea and vomiting.
[2024-02-10] MEDS: Normal Saline Flush 10 ML SYR IVP (12:51)
[2024-02-10] MEDS: DALBAVANCIN 1,500 MG in DEXTROSE 5%-WATER 325 ML 650 MG IVPB (12:51)
[2024-02-10 14:16] LABS: Abs Immature Grans 0.08 10^3/uL (0.0-0.06); Absolute Basophil Count 0.08 10^3/uL (0.0-0.2); Absolute Eosinophil Count 0.35 10^3/uL (0.0-0.7); Absolute Lymphocyte Count 3.55 10^3/uL (1.2-3.4); Basophils % 0.5 %; Eosinophils % 2.2 %; HCT 43.7 % (36.0-46.0); HGB 14.8 g/dL (11.2-15.7); Immature Grans % 0.5 %; Lymphocytes % 22.6 %; MCH 31.1 pg (27.0-33.0); MCHC 33.9 % (32.0-36.0); MCV 92 fL (80-95); MPV 9.4 fL (8.0-11.0); Neutrophils % 66.2 %; Platelet Count 401 10^3/uL (130-400); RBC 4.76 10^6/uL (3.93-5.22); RDW 12.4 % (11.7-14.6); WBC 15.71 10^3/uL (4.4-10.8)
[2024-02-10 14:17] LABS: Absolute Monocyte Count 1.26 10^3/uL (0.1-0.8)
[2024-02-10 14:38] LABS: ALT 16 U/L (14-59); AST 12 U/L (15-37); Alkaline Phosphatase 120 U/L (46-116); Anion Gap 5.6 mmol/L (3-11); BUN 11 mg/dL (7-18); CO2 30.4 mmol/L (21.0-32.0); CREATININE 0.8 mg/dL (0.55-1.02); Calcium 9.4 mg/dL (8.5-10.1); Chloride 93 mmol/L (98-107); Estimated GFR 96.66 (mL/min/1.73m2); Glucose 463 mg/dL (74-106); Potassium 4.1 mmol/L (3.5-5.1); Sodium 129 mmol/L (136-145); Total Protein 7.5 g/dL (6.4-8.2)
== END 2024-03-05 23:59 | disposition home or self-care (01) ==
LOC: INF 00:53
PROVIDERS: PCP Internal Medicine; Visit Provider Nurse Practitioner Family
DX: M86.172 Other acute osteomyelitis, left ankle and foot
CPT/HCPCS: 36415; 80053; 96365; 85025; 86140; J0875

== ENCOUNTER 2024-03-12 13:55 | Outpatient (CLI) | payer SELFPAY ==
[2024-03-12 12:54] LABS: Abs Immature Grans 0.05 10^3/uL (0.0-0.06); Absolute Eosinophil Count 0.44 10^3/uL (0.0-0.7); Basophils % 0.5 %; HCT 45.9 % (36.0-46.0); HGB 16.1 g/dL (11.2-15.7); Immature Grans % 0.3 %; Lymphocytes % 34.7 %; MCH 31.3 pg (27.0-33.0); MCHC 35.1 % (32.0-36.0); MCV 89 fL (80-95); MPV 9.7 fL (8.0-11.0); Monocytes % 8.2 %; Neutrophils % 53.3 %; Platelet Count 342 10^3/uL (130-400); RBC 5.14 10^6/uL (3.93-5.22); RDW 12.4 % (11.7-14.6); RDW-SD 40.8 fL; WBC 14.69 10^3/uL (4.4-10.8)
[2024-03-12 13:06] LABS: ESR 16 mm/hr (0-20)
[2024-03-12 13:08] LABS: Absolute Basophil Count 0.07 10^3/uL (0.0-0.2); Absolute Neutrophil Count 7.83 10^3/uL (1.2-6.7)
[2024-03-12 13:35] LABS: Hemoglobin A1C 11.9 % (<5.7)
[2024-03-12 13:42] LABS: Diff Comment Diff Reviewed; RBC Morphology Normal
[2024-03-12 14:06] LABS: Vitamin D 25 Total 17.5 ng/mL (30-100)
[2024-03-12 14:14] LABS: C-Reactive Protein 0.57 mg/dL (<or=0.5)
== END 2024-03-12 13:56 | disposition home or self-care (01) ==
LOC: LBO 13:56
PROVIDERS: PCP Internal Medicine; Visit Provider Podiatrist
DX: L97.522 Non-pressure chronic ulcer of other part of left foot with fat layer exposed (principal); M86.9 Osteomyelitis, unspecified
CPT/HCPCS: 36415; 82306; 85652; 83036; 85025; 86140

== ENCOUNTER 2024-05-31 00:29 | Observation (INO) | payer BC, SELFPAY ==
[2024-05-31] VITALS (57 sets, daily range): BP systolic 101–182; BP diastolic 58–105; PULSE 90–153; RESP 12–32; TEMP 36.5–37.4; O2SAT 94–100
--- OUTSIDE RECORDS SUMMARY | 2024-05-31 00:34 | XMS_ITS | Encounter Summary ---
Author Organization [facility] [place] [address] Care Team Providers Care Calender Supervisor Name Role Phone Carrington Calderon MD Primary Care Provider [phone] Encounter Details Date Type Department Care Team (Late st Contact Info) Description 03/06/2024 Telephone [place] [id number] Olive Anna, RN Social History Tobacco Use Types Packs/Day Years Used Date Smoking Tobacco: Every Day Cigarettes Smokeless Tobacco: Never Sex and Gender Information Value Date Recorded Sex Assigned at Not on file Gender Identity Not on file Sexual Orientation Not on file documented as of this encounter Miscellaneous Notes * Telephone Encounter - Olive Anna, RN - 03/06/2024 12:59 PM EDT This narrative writer left message for Cristy but pt did not answer. So this narrative writer called the whohas just returned to work and received his first pay check today. He believes his insurance will bereinstated shortly and has sent an email to to inquire about his health insurance which the pt will also be on. Waiting for health insurance to be current before scheduling the pt for an MRI this month. Will continue to follow. documented in this encounter Plan of Treatment Not on file documented as of this encounter Visit Diagnoses Not on filedocumented in this encounter Care Teams Calender Supervisor Relationship Specialty Start Date End Date Carrington Calderon MD 1 [facility] [address] [place] [address] PCP - General Internal Medicine 01/16/24 documented as of this encounter
--- OUTSIDE RECORDS SUMMARY | 2024-05-31 00:34 | XMS_ITS | Encounter Summary ---
Author [facility] [place] [address] Care Team Providers Care Psychology Technician Name Role Phone Carrington Calderon MD Primary Care Provider [phone] Encounter Details Date Type Department Care Team (Late st Contact Info) Description 02/07/2024 Notes Only Infectious Disease at [facility] [place] [address] Olive Anna, RN Social History Tobacco Use [...] PM EDT Infectious Disease Department Faxed to [facility] infusion suite on 02/07/24 at 1300 Fax confirmation on 02/07/24 at 1310 Document(s) faxed: [place] orders Spoke to nurse Crow at [facility] and pt is scheduled for 02/10/24 @1200 Infectious Disease Department Faxed to [facility] Radiology on 02/07/24 at 1300 Fax confirmation on 02/07/24 at 1315 Document(s) faxed: MRI screening questionnaire form that pt's Arnold answered all questions during phone call with this administrative underwriter. documented in this encounter Plan of Treatment Not on file documented as of this encounter Visit Diagnoses Not on filedocumented in this encounter Care Teams Psychology Technician Relationship Specialty Start Date End Date Carrington Calderon MD 1 [facility] [address] [place] [address] PCP - General Internal Medicine 01/16/24 documented as of this encounter
--- OUTSIDE RECORDS SUMMARY | 2024-05-31 00:34 | XMS_ITS | Encounter Summary ---
Author Organization [facility] [place] [address] Care Team Providers Care Apprentice Painter Brush Name Role Phone Carrington Calderon MD Primary Care Provider [phone] Encounter Details Date Type Department Care Team (Late st Contact Info) Description 02/07/2024 Telephone [place] [address] None None Social History Tobacco Use Types [...] MD / Treating provider: Message: Niru from [facility] Radiology called and stated that they received the referral for the patients MRI. Niru stated in addition to the referral they received, theywill need a Hard copy of the Insurance Authorization, Patients Insurance Information, and the safety questionaire. Please call with any questions. Caller Name (If other than patient): Niru - Radiology Relationship to Patient (if other than self): [facility], [place], [place] Radiology Callback number: [phone] Best time you are available: Any Route Per Clinic Coverage Page documented in this encounter Plan of Treatment Not on file documented as of this encounter Visit Diagnoses Not on filedocumented in this encounter Care Teams Apprentice Painter Brush Relationship Specialty Start Date End Date Carrington Calderon MD 1 [facility] 1 [place] [address] PCP - General Internal Medicine 01/16/24 documented as of this encounter
--- OUTSIDE RECORDS SUMMARY | 2024-05-31 00:34 | XMS_ITS | Encounter Summary ---
Author Organization [facility] Address [facility] [address] [place] [id number] Care Team Providers Care National Sales Trainer Name Role Phone Carrington Calderon MD Primary Care Provider [phone] Reason for Referral * Consultation (Routine) - Closed Specialty Diagnoses / Procedures Referred By Contac t Referred To Contact Infectious Diseases Diagnoses Diabetic foot ulcer with osteomyelitis Jackie Javier MD [facility] [place] [address] Jackie Javier MD [facility] [place] [address] Referral ID Status Reason Start Date Expiration Date V isits Requested Visits Authorized [id number] Closed Assume Subset of Care 02/07/2024 02/06/2025 1 1 Encounter Details Date Type Department Care Team (Late st Contact Info) Description 02/07/2024 Orders [place] [address] Jackie Javier MD [facility] [place] [address] Diabetic foot ulcer with osteomyelitis Social History Tobacco Use Types Packs/Day Years Used Date Smoking Tobacco: Every Day Cigarettes Smokeless Tobacco: Never Sex and Gender Information Value Date Recorded Sex Assigned at Not on file Gender Identity Not on file Sexual Orientation Not on file documented as of this encounter Plan of Treatment Scheduled Referrals Name Type Priority Associated Diagnoses [...] uncontrolled documented in this encounter Care Teams National Sales Trainer Relationship Specialty Start Date End Date Carrington Calderon MD 1 [facility] 1 [place] [address] PCP - General Internal Medicine 01/16/24 documented as of this encounter
--- OUTSIDE RECORDS SUMMARY | 2024-05-31 00:34 | XMS_ITS | Encounter Summary ---
Author [facility] [place] [address] Care Team Providers Care Loss Prevention Leader Name Role Phone Carrington Calderon MD Primary Care Provider [phone] Encounter Details Date Type Department Care Team (Latest Contact Info) Description 02/03/2024 Travel Social History Tobacco Use Types Packs/Day Years Used Date Smoking Tobacco: Every Day Cigarettes Smokeless Tobacco: Never Sex and Gender Information Value Date Recorded Sex Assigned at Not on file Gender Identity Not on file Sexual Orientation Not on file documented as of this encounter Plan of Treatment Not on file documented as of this encounter Visit Diagnoses Not on filedocumented in this encounter Care Teams Loss Prevention Leader Relationship Specialty Start Date End Date Carrington Calderon MD 1 [facility] [address] [place] [address] PCP - General Internal Medicine 01/16/24 documented as of this encounter
--- OUTSIDE RECORDS SUMMARY | 2024-05-31 00:34 | XMS_ITS | Encounter Summary ---
Author Organization [facility] [place] [address] Care Team Providers Care Captain Cannery Tender Name Role Phone Carrington Caldeorn MD Primary Care Provider +1 -[phone] Encounter Details Date Type Department Care Team (Latest Contact Info) Description 03/01/2024 External Results Infectious Disease at [facility] [place] [address] Jackie Javier MD [facility] [place] [address] Diabetic foot ulcer with osteomyelitis Social History Tobacco Use Types Packs/Day Years Used Date Smoking Tobacco: Every Day Cigarettes Smokeless Tobacco: Never Sex and Gender Information Value Date Recorded Sex Assigned at Not on file Gender Identity Not on file Sexual Orientation Not on file documented as of this encounter Plan of Treatment Not on file documented as of this encounter Procedures Procedure Name Priority Date/Time Associated Diagnosis Comments CRP, ACUTE INFLAMMATION Routine 02/10/2024 Diabetic foot ulcer with osteomyelitis CBC (WITH DIFF) Routine 02/10/2024 Diabetic foot ulcer with osteomyelitis COMPREHENSIVE METABOLIC PANEL Routine 02/10/2024 Diabetic foot ulcer with osteomyelitis documented in this encounter Results * (ABNORMAL) CBC (with Diff) (02/10/2024) WBC - External 15.71(H) [facility] Hemoglobin - External 14.8 [facility] Platelets - External 401 [facility] Neutr ABS (ANC) - External 10.4(H) [facility] Blood VENOUS BLOOD SPECIMEN / Unknown 02/10/2024 Jackie Javier MD HEMATOLOGY ORDERABLE S Performing Organization Address City/[facility]/ZIP Co de Phone Number [address] [place], [place] [address] [phone] * CRP, acute inflammation (02/10/2024) CRP - External 10 mg/L [facility] Blood VENOUS BLOOD SPECIMEN / Unknown 02/10/2024 Jackie Javier MD CHEMISTRY ORDERABLES Performing Organization Address City/[facility] Co de Phone Number [address] [place], [place] [address] [phone] * (ABNORMAL) Comprehensive metabolic panel Non-fasting (02/10/2024) Glucose Lvl - External 463(H) [facility] Blood Urea Nitrogen - External 11 [facility] Creatinine - External 0.8 [facility] Sodium - External 129(L) [facility] Potassium - External 4.1 [facility] Chloride - External 93 [facility] Calcium - External 9.4 [facility] Protein, Total - External 7.5 [facility] Albumin - External 3 [facility] Total Bilirubin - External 0.1 [facility] Alk Phos - External 120 [facility] AST (SGOT) - External 12 [facility] ALT (SGPT) - External 16 [facility] Blood VENOUS BLOOD SPECIMEN / Unknown 02/10/2024 Jackie Javier MD CHEMISTRY ORDERABLES Performing Organization Address City/[facility] Co de Phone Number [address] [place], [place] [address] [phone] documented in this encounter Visit Diagnoses Diagnosis Diabetic foot ulcer with osteomyelitis Type II or unspecified type diabetes mellitus with other specified manifestations, not stated as uncontrolled documented in this encounter Care Teams Captain Cannery Tender Relationship Specialty Start Date End Date Carrington Calderon MD 1 [facility] Level 1 [place] [phone] PCP - General Internal Medicine 01/16/24 documented as of this encounter
--- OUTSIDE RECORDS SUMMARY | 2024-05-31 00:34 | XMS_ITS | Encounter Summary ---
Author Organization [facility] [place] [address] Care Team Providers Care Weight Checker Name Role Phone Carrington Calderon MD Primary Care Provider +1 [phone] Encounter Details Date Type Department Care Team (Late st Contact Info) Description 02/09/2024 Telephone [place] [address] None None Social History Tobacco Use Types [...] Prescriber: Jackie Javier MD Name of Pharmacy: [facility] Address for Pharmacy: [address] [place] [address]/[facility] State for Pharmacy: [place], [place] Is the Patient Currently at the Pharmacy: No Caller Name (If other than patient): Mignon Relationship to Patient (if other than self): [facility] Callback number: [phone] Best time you are available: Any documented in this encounter Plan of Treatment Not on file documented as of this encounter Visit Diagnoses Not on filedocumented in this encounter Care Teams Weight Checker Relationship Specialty Start Date End Date Carrington Calderon MD 1 [facility] 1 [place] [address] PCP - General Internal Medicine 01/16/24 documented as of this encounter
--- OUTSIDE RECORDS SUMMARY | 2024-05-31 00:34 | XMS_ITS | Encounter Summary ---
[place] [address] Care Team Providers Care Airport Traffic Controller Name Role Phone Carrington Calderon MD Primary Care Provider +1 [phone] Encounter Details Date Type Department Care Team (Late st Contact Info) Description 02/03/2024 Telephone [place] [address] Olive Anna, RN Social History Tobacco Use [...] on filedocumented in this encounter Care Teams Airport Traffic Controller Relationship Specialty Start Date End Date Carrington Calderon MD 1 [facility] 1 [place] [address] PCP - General Internal Medicine 01/16/24 documented as of this encounter
--- OUTSIDE RECORDS SUMMARY | 2024-05-31 00:34 | XMS_ITS | Encounter Summary ---
Author Organization [facility] [place] [address] Care Team Providers Care Loader Helper Name Role Phone Carrington Calderon MD Primary Care Provider +1 [phone] Reason for Visit * Treatment/Therapy Plan Authorization (Routine) - Pending Review Specialty Diagnoses / Procedures Referred By Contac t Referred To Contact Diagnoses Osteomyelitis, unspecified site, unspecified type Procedures TC DALBAVANCIN, 5 MG, INJECTION Jackie Javier MD [facility] [place] [address] [facility] [address] [place] [id number] Referral ID Status Reason Start Date Expiration Date V isits Requested Visits Authorized [id number] Pending Review 02/03/2024 02/02/2025 99 99 Encounter Details Date Type Department Care Team (Latest Contact Info) Description 02/03/2024 12:12 PM EDT - 02/03/2024 11:59 PM EDT Hospital En[place] [address] Osteomyelitis, unspecified site, unspecified type; Diabetic foot [...] Javier MD CHEMISTRY ORDERABLES [facility] [place] [address] * (ABNORMAL) Comprehensive metabolic panel (02/03/2024 12:38 PM EDT) Glucose 306(H) 65 - 199 mg/dL 02/03/2024 1:43 PM [facility] Comment:Glucose Concentratio n >=200 mg/dL plus symptoms is consistent with Diabetes Mellitus. Blood Urea Nitrogen 9 8 - 18 mg/dL 02/03/2024 1:43 PM [facility] Creatinine 0.56(L) 0.70 - 1.20 mg/dL 02/03/2024 1:43 PM [facility] Sodium 133(L) 135 - 145 mMol/L 02/03/2024 1:43 PM [facility] Potassium 4.4 3.5 - 5.0 mMol/L 02/03/2024 1:43 PM [facility] Chloride 96(L) 98 - 107 mMol/L 02/03/2024 1:43 PM [facility] Carbon Dioxide 25 22 - 31 mMol/L 02/03/2024 1:43 PM [facility] Anion Gap 12 5 - 15 mMol/L 02/03/2024 1:43 PM [facility] Calcium 9.8 8.5 - 10.5 mg/dL 02/03/2024 1:43 PM [facility] Protein, Total 7.5 6.1 - 8.0 g/dL 02/03/2024 1:43 PM [facility] Albumin 4.1 3.2 - 5.2 g/dL 02/03/2024 1:43 PM [facility] Aspartate Aminotransferase 12 <=30 unit/L 02/03/2024 1:43 PM [facility] Alanine Aminotransferase 13 0 - 30 unit/L 02/03/2024 1:43 PM [facility] Alkaline Phosphatase 138(H) 35 - 105 unit/L 02/03/2024 1:43 PM [facility] Bilirubin, Total <0.2 <=1.3 mg/dL 02/03/2024 1:43 PM [facility] Est Glomerular Filtration Rate - Female 120 mL/min/1. 73 m?? 02/03/2024 1:43 PM EDT [facility] Comment: This patient's estimated GFR [...] Javier MD CHEMISTRY ORDERABLES [facility] [place] [id number] * (ABNORMAL) CBC (with Diff) (02/03/2024 12:38 [...] - 357 x10(3)/mc L 02/03/2024 1: PM [facility] Mean Platelet Volume 9.6 7.6 - 12.9 fL 02/03/2024 1:21 PM [facility] RDW Standard [...] CENTER LABORATORY Neutrophil % 63.6 % 02/03/2024 1: PM [facility] Neutrophil Absolute (ANC) - Automated 11.90(H) 1.70 - 6.10 x10(3)/mc L 02/03/2024 1: PM [facility] Lymph % 26.2 % 02/03/2024 1:21 PM [facility] Lymph Absolute 4.90(H) 0.90 - 3.20 x10(3)/mc L 02/03/2024 1: PM [facility] Monocyte % 7.3 % 02/03/2024 1:21 PM [facility] Monocyte Absolute 1.36(H) 0.30 - 0.90 x10(3)/mc L 02/03/2024 1:21 PM [facility] Eos % 2.0 % 02/03/2024 1:21 PM EDT [facility] Eos Absolute 0.37 0.00 - 0.40 x10(3)/mc L 02/03/2024 1:21 PM EDT [facility] Basophil % 0.5 % 02/03/2024 1:21 PM EDT [facility] Baso Absolute 0.09 0.00 - [...] MD HEMATOLOGY ORDERABLE S [facility] [place] [phone] documented in this encounter Visit Diagnoses Diagnosis [...] mL/hr documented in this encounter Care Teams Loader Helper Relationship Specialty Start Date End Date Carrington Calderon MD 1 [facility] 1 [place] [phone] PCP - General Internal Medicine 01/16/24 documented as of this encounter
--- OUTSIDE RECORDS SUMMARY | 2024-05-31 00:34 | XMS_ITS | Encounter Summary ---
Author Organization [facility] [place] [address] Care Team Providers Care Radiation Protection Technician Name Role Phone Carrington Calderon MD Primary Care Provider +1 [phone] Encounter Details Date Type Department Care Team (Late st Contact Info) Description 02/08/2024 Telephone [place] [address] Jackie Javier MD [facility] [place] [address] Social History Tobacco Use Types Packs/Day Years [...] other than self): Diagnostic Imaging Callback number: [phone] Best time you are available: Any documented in this encounter Plan of Treatment Not on file documented as of this encounter Visit Diagnoses Not on filedocumented in this encounter Care Teams Radiation Protection Technician Relationship Specialty Start Date End Date Carrington Calderon MD 1 [facility] Level 1 [place] [phone] PCP - General Internal Medicine 01/16/24 documented as of this encounter
--- OUTSIDE RECORDS SUMMARY | 2024-05-31 00:34 | XMS_ITS | Encounter Summary ---
Author Organization [facility] Address [facility] [place] [address] Care Team Providers Care Manager Branch Name Role Phone Carrington Calderon MD Primary Care Provider +1 -[phone] Encounter Details Date Type Department Care Team (Late st Contact Info) Description 02/03/2024 Orders Only Infectious Disease at [facility] [place] [address] Jackie Javier MD [facility] [place] [address] Diabetic foot ulcer with osteomyelitis Social History Tobacco Use Types Packs/Day Years Used Date Smoking Tobacco: Every Day Cigarettes Smokeless Tobacco: Never Sex and Gender Information Value Date Recorded Sex Assigned at Not on file Gender Identity Not on file Sexual Orientation Not on file documented as of this encounter Plan of Treatment Scheduled Orders Name Type Priority Associated Diagnoses Orde r Schedule CBC (with Diff) Lab Routine Diabetic foot ulcer with osteomyelitis Once a week for 6 Occurrences starting 02/03/2024 until 02/02/2025, 1 completed CRP, acute inflammation Lab Routine Diabetic foot ulcer with osteomyelitis Once a week for 6 Occurrences starting 02/03/2024 until 02/02/2025, 1 completed Comprehensive metabolic panel Non-fasting Lab Routine Diabetic foot ulcer with osteomyelitis Once a week for 6 Occurrences starting 02/03/2024 until 02/02/2025, 1 completed documented as of this encounter Results * (ABNORMAL) Comprehensive metabolic panel Non-fasting (02/10/2024) Glucose Lvl - External 463(H) [facility] Blood Urea Nitrogen - External 11 [facility] Creatinine - External 0.8 [facility] Sodium - External 129(L) [facility] Potassium - External 4.1 [facility] Chloride - External 93 [facility] Calcium - External 9.4 [facility] Protein, Total - External 7.5 [facility] Albumin - External 3 [facility] Total Bilirubin - External 0.1 [facility] Alk Phos - External 120 [facility] AST (SGOT) - External 12 [facility] ALT (SGPT) - External 16 [facility] Blood VENOUS BLOOD SPECIMEN / Unknown 02/10/2024 Jackie Javier MD CHEMISTRY ORDERABLES [address] [place], [place] [phone] [place] [address] * CRP, acute inflammation (02/10/2024) CRP - External 10 mg/L [facility] Blood VENOUS BLOOD SPECIMEN / Unknown 02/10/2024 Jackie Javier MD CHEMISTRY ORDERABLES [address] [place], [place] [phone] [place] [address] * (ABNORMAL) CBC (with Diff) (02/10/2024) WBC - External 15.71(H) [facility] Hemoglobin - External 14.8 [facility] Platelets - External 401 [facility] Neutr ABS (ANC) - External 10.4(H) [facility] Blood VENOUS BLOOD SPECIMEN / Unknown 02/10/2024 Jackie Javier MD HEMATOLOGY ORDERABLE S Performing Organization Address City/[facility]/ZIP Co de Phone Number [address] [place], [place] [phone] [place] [address] documented in this encounter Visit Diagnoses Diagnosis Diabetic foot ulcer with osteomyelitis Type II or unspecified type diabetes mellitus with other specified manifestations, not stated as uncontrolled documented in this encounter Care Teams Manager Branch Relationship Specialty Start Date End Date Carrington Calderon MD 1 [facility] 1 [place] [phone] PCP - General Internal Medicine 01/16/24 documented as of this encounter
--- OUTSIDE RECORDS SUMMARY | 2024-05-31 00:34 | XMS_ITS | Encounter Summary ---
Author Organization [facility] [place] [address] Care Team Providers Care Computer System Technician Name Role Phone Carrington Calderon MD Primary Care Provider +1 -[phone] Encounter Details Date Type Department Care Team (Late st Contact Info) Description 02/03/2024 Orders [place] [address] Jackie Javier MD [facility] [place] [address] Social History Tobacco Use Types Packs/Day Years [...] on filedocumented in this encounter Care Teams Computer System Technician Relationship Specialty Start Date End Date Carrington Calderon MD 1 [facility] Level 1 [place] [address] PCP - General Internal Medicine 01/16/24 documented as of this encounter
--- OUTSIDE RECORDS SUMMARY | 2024-05-31 00:34 | XMS_ITS | Clinical Summary ---
Author Organization [facility] Address [facility] [place] [address] Care Team Providers Care Vamp Liner Name Role Phone Carrington Calderon MD Primary Care Provider +1 -[phone] Allergies Active Allergy Reactions Criticality Noted Date [...] Take 50 mg by mouth nightly. Active dextrose 5% Parenteral SolutionIndications: Diabetic foot ulcer with osteomyelitis Flush line with D5W 10 ml prior to and post dalbavancin infusion 10 mL 02/07/2024 Active Active Problems Problem Noted Date Diagnosed Date Osteomyelitis 02/03/2024 Encounters Date Type Department Care Team Description 03/06/2024 Telephone [place] [address] Olive Anna RN 03/01/2024 External Results [place] [address] Jackie Javier MD Diabetic foot ulcer with osteomyelitis from Last 3 Months Social History Tobacco [...] 02/03/2024 10:47 AM EDT Plan of Treatment Health Maintenance Due Date Last Done Comments HIV screen 2003 Hepatitis C Screening 2003 Lipid Screening 2003 Hepatitis B vaccine (0-59 yrs) (1) 2004 Pneumococcal Vaccine: At-Ris k 5-64yrs (1 of 2 - PCV) 2004 Tetanus/Diphtheria/Pertussis Vaccines (1 - Tdap) 2004 HPV test 2015 PAP Smear 2015 Covid-19 Vaccine (4 - 2023- season) 2024 11/17/2022, 07/06/2021, 01/28/2021 Influenza (Flu) vaccine (1 o f 1 - Influenza standard series) 02/05/2024 Care Teams Vamp Liner Relationship Specialty Start Date End Date Carrington Calderon MD 1 [facility] Level 1 [place] [phone] PCP - General Internal Medicine 01/16/24
--- OUTSIDE RECORDS SUMMARY | 2024-05-31 00:34 | XMS_ITS | Encounter Summary ---
Author Organization [facility] [place] [address] Care Team Providers Care Four Horse Hitch Driver Name Role Phone Carrington Calderon MD Primary Care Provider +1 -[phone] Encounter Details Date Type Department Care Team (Late st Contact Info) Description 02/03/2024 Notes Only [facility] [place] [address] Olive Anna, RN Social History Tobacco Use [...] PM EDT Infectious Disease Department Faxed to [facility] on 02/03/24 at 1615 Fax confirmation on 02/03/24 at 1620 Document(s) faxed: Standing labs MRI order documented in this encounter Plan of Treatment Not on file documented as of this encounter Visit Diagnoses Not on filedocumented in this encounter Care Teams Four Horse Hitch Driver Relationship Specialty Start Date End Date Carrington Calderon MD 1 [facility] 1 [place] [address] PCP - General Internal Medicine 01/16/24 documented as of this encounter
--- NOTE | 2024-05-31 00:35 | ED.GENADUL_ITS ---
Discharge Plan Disposition Patient Disposition: Admit to [facility] Condition: Fair Discharge Details Clinical Impression: Intractable nausea and vomiting Primary Care Provider: CARLY PADGETT ED [facility] Prescriptions: No Action omeprazole 40 mg capsule,delayed release(DR/EC) 40 mg PO DAILY Qty: 30 5RF MediHoney (honey) 80 % gel 1 applic topical DAILY Qty: 44 0RF nortriptyline 10 mg capsule 10 mg PO QHS gabapentin 300 mg tablet 300 - 900 mg PO DIRECTED Rx Instructions: 300 qam 1200 hs insulin glargine [Lantus Solostar U-100 Insulin] 100 unit/mL (3 mL) insulin pen 50 unit SUBCUT HS insulin aspart U-100 [Novolog FlexPen U-100 Insulin] 100 unit/mL (3 mL) insulin pen 15 unit SUBCUT TID Patient Comments: adjusted to carbs and pre-meal BS, up to 15u SUBCUTANEOUSLY THREE TIMES DAILY WITH MEALS lidocaine [Lidoderm] 5 % adhesive patch,medicated 1 patch topical DIRECTED Patient Comments: PLACE 1 PATCH ONTO THE SKIN DAILY. PATCHE(S) MAY REMAIN IN PLACE FOR UP TO 12 HOURS IN ANY 24-HOUR PERIOD duloxetine 40 mg capsule,delayed release(DR/EC) 40 mg PO DAILY Patient Comments: TAKE 1 CAPSULE BY MOUTH ONCE DAILY metoclopramide HCl [Reglan] 10 mg tablet 10 mg PO Q6H PRN Rx Instructions: take 30 minutes before meals and at bedtime cyclobenzaprine 10 mg tablet 10 mg PO TID PRN (Reason: muscle spasm) Qty: 7 0RF Rx Instructions: Take one tablet up to 3 times daily as needed for muscle spasm (DME) Dexcom G6 Sensor Device See Rx Instructions .Route Qty: 6 0RF Rx Instructions: As directed tramadol 50 mg Tablet 50 mg PO Q6H PRN PRNQty: 30 0RF ondansetron 4 mg tablet,disintegrating 4 mg PO Q6H PRNQty: 60 0RF HPI General Mode of arrival: ambulatory . Date/Time Provider Initiated Documentation: 05/31/24 00:35 . Limitations to Documentation: no limitations . Information obtained by: patient, RN notes reviewed and old records reviewed . HPI Narrative: Patient presenting to ED with nausea/vomiting since early morning. Patient with history of both gastroparesis as well as cannabis hyperemesis syndrome. Reports that she does continue to sporadically smoke marijuana. Unable to recall last time she did so. Unable to keep anything down at this point including water. Did have a couple of episodes of diarrhea this morning but none throughout the rest of the day. Has had sweats and chills but no documented fever. Complaining of back pain but no abdominal pain. Has had multiple visits to the ED as well as a few admissions for similar problem. Related Data Home Medications ?Medication ?Instructions ?Recorded ?Confirmed blood-glucose sensor (Dexcom G6 #6 ea 05/03/22 05/31/24 Sensor device) lidocaine 5 % topical patch 1 patch topical DIRECTED 05/25/22 05/31/24 (Lidoderm) tramadol 50 mg tablet 50 mg PO Q6H PRN PRN #30 tabs 08/28/22 05/31/24 omeprazole 40 mg capsule,delayed 40 mg PO DAILY #30 caps 11/09/22 05/31/24 release ondansetron 4 mg disintegrating 4 mg PO Q6H PRN #60 tabs 02/20/23 05/31/24 tablet duloxetine 40 mg capsule,delayed 40 mg PO DAILY 05/24/23 05/31/24 release gabapentin 300 mg tablet 300 - 900 mg PO DIRECTED 09/08/23 05/31/24 honey 80 % topical gel (MediHoney 1 applic topical DAILY #44 mL 10/18/23 05/31/24 (honey)) metoclopramide HCl 10 mg tablet 10 mg PO Q6H PRN 12/30/23 05/31/24 (Reglan) insulin aspart U-100 100 unit/mL 15 unit subcut TID 01/18/24 05/31/24 (3 mL) subcutaneous pen (Novolog FlexPen U-100 Insulin aspart) insulin glargine 100 unit/mL (3 50 unit subcut HS 01/18/24 05/31/24 mL) subcutaneous pen (Lantus Solostar U-100 Insulin) cyclobenzaprine 10 mg tablet 10 mg PO TID PRN muscle spasm #7 02/06/24 05/31/24 tabs nortriptyline 10 mg capsule 10 mg PO QHS 02/27/24 05/31/24 Previous Rx's ?Medication ?Instructions ?Recorded blood-glucose sensor (Dexcom G6 #6 ea 05/03/22 Sensor device) tramadol 50 mg tablet 50 mg PO Q6H PRN PRN #30 tabs 08/28/22 omeprazole 40 mg capsule,delayed 40 mg PO DAILY #30 caps 11/09/22 release ondansetron 4 mg disintegrating 4 mg PO Q6H PRN #60 tabs 02/20/23 tablet honey 80 % topical gel (MediHoney 1 applic topical DAILY #44 mL 10/18/23 (honey)) cyclobenzaprine 10 mg tablet 10 mg PO TID PRN muscle spasm #7 02/06/24 tabs Allergies Allergy/AdvReac Type Severity Reaction Status Date / Time ibuprofen (From Advil) Allergy Severe Anaphylaxis Verified 05/31/24 00:41 pomegranate Allergy Severe Anaphylaxis Verified 05/31/24 00:41 citalopram AdvReac Severe Bodily harm Verified 05/31/24 00:41 General ARNOLD: 3 Review of Systems Narrative: Per HPI Exam Narrative Exam Narrative: Const: WDWN female in NAD. VS per triage. HEENT: NC/AT. Normal facial exam. Neck: Supple. Trachea midline. Lungs: Normal respiratory effort. Lungs are clear. Cor: RRR without murmur. Good radial pulses. GI: Soft/ND/NT. Neuro: A+O x 3. Normal speech, mentation, gait. Cranial nerves II - XII grossly intact. No gross motor or sensory deficit. Ext: No C/C/E. Medical Decision Making Patient presenting to ED with nausea vomiting since early this morning, unable to keep anything down at this point. Has had multiple previous visits for same with a diagnosis of gastroparesis as well as cannabis hyperemesis syndrome. She does still smoke sporadically but is unable to tell me when she last smoked marijuana. Her abdomen is benign. She is tachycardic. She is afebrile. Will place IV and give fluids as well as ondansetron and metoclopramide which have worked for her in the past. Check laboratory studies and reevaluate. Patient's initial laboratory studies with a leukocytosis of 16.6 and some hemoconcentration with a hemoglobin of 16.6. Initial chemistries unremarkable except for an anion gap of 16.5. Initial glucose 386 but bicarb normal. Liver function and lipase unremarkable. Patient initially feeling a little better and tried to drink kirsten stan. Began vomiting once again after this. Also now having some reflux. She is ordered for a second liter of fluid, droperidol, famotidine, GI cocktail. Urinalysis shows no evidence of infection. She does have urine glucose and urine ketones. After her second liter of fluid a VBG was obtained which shows normal pH and normal bicarb. Her repeat Remains at 16.4. Her glucose is down to 289. I do not think this is related to DKA given the normal pH and bicarb on a blood gas. I think she is extremely dehydrated. Heart rate remains elevated though blood pressure remains normal. Sodium has gone up to 146. I have spoke with patient and her . Given her lab abnormalities and continued tachycardia I think she should be admitted for further hydration and management of her nausea and vomiting. She is agreeable to this. Will switch her over to LR at this point given her increased sodium. Will discuss with hospitalist. Discussed with hospitalist. Patient to be admitted for further hydration and management of her nausea and vomiting. Medical Records Medical records reviewed: Yes I reviewed the patient's medical records. Lab Data Lab results reviewed: Yes I reviewed the patient's lab results. Lab results narrative: see [facility] All Active Problems (Updated 05/31/24 @ 05:14 by Rigo Amos MD) Back pain (Acute) Phantom limb pain (Acute) Contracture, plantar fascia (Acute) Neuropathic ulcer of left foot with fat layer exposed (Acute) Abnormal CT of the abdomen (Acute) Gallbladder sludge (Acute) Intractable nausea and vomiting (Acute) Osteomyelitis of left foot (Acute) Corns and callosities (Acute) Chronic nausea (Acute) Vomiting (Acute) Tobacco abuse (Acute) Cannabinoid hyperemesis syndrome (Acute) Medical History DVT (deep venous thrombosis) Gastroparesis Ulcerative esophagitis History of osteomyelitis IBS (irritable bowel syndrome) History of kidney stones Suicide attempt Anxiety and depression Diabetic neuropathy Diabetes Type 1, per patient she said she was told she had diabetes type 2. 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 Maternal Cousin Breast cancer Maternal Cousin Breast cancer Maternal Cousin Breast cancer Social History Smoking/Tobacco Use Status: Current every day Tobacco Type: cigarettes Smoking risk assessment performed?: Yes Alcohol Intake: current Alcohol Intake frequency: holidays/special occasions only Drug use: Daily Substance use type: marijuana Housing: house Do you feel safe at home: Yes Do you feel safe in your relationship?: Yes
--- OUTSIDE RECORDS SUMMARY | 2024-05-31 00:35 | XMS_ITS | Encounter Summary ---
Author Organization [facility] Address [address] [place] [address] Care Team Providers Care Veterinary Laboratory Diagnostician Name Role Phone Carrington Calderon MD Primary Care Provi anders Carmelo Hendrickson Unavailable Unavailable Abigail Díaz Unavailable Encounter Details Date Type Department Care Team (Late st Contact Info) Description 04/06/2024 Abstract [facility] [place] 1 [place] [address] Carrington Calderon MD 1 [facility] 1 [place] [address] Social History Tobacco Use Types Packs/Day Years Used Date Smoking Tobacco: Every Day Cigarettes 0.5 13.6 Started: 11/10/2010 Smokeless Tobacco: Never Comments:06/13/20 actively try ing to quit about 5-8 cigs/day Alcohol Use Standard Drinks/Week Comments Yes 0 (1 standard drink = 0.6 oz pur e alcohol) rarely C Utilities Answer Date Recorded In the past 12 months has [employer], gas, oil, or water company threatened to [...] any time in the past 12 m [facility], were you homeless or living in a fci (including now)? No 11/15/2023 Interpersonal Safety Answer Date Record ed How often does anyone, audrey waldron family, hit, punch or physically hurt you? 11/15/2023 How often does anyone, audrey waldron family, insult, scream, curse or threaten to hurt you? 11/15/2023 Employment Answer Date Recorded Do you want help finding or keeping work or a job? I do not need or want help 04/03/2024 Financial Strain Answer Date Recorded How hard is it for you to pa y for the very basics like food, housing, medical care, and heating? Would you say it is: Somewhat hard 04/03/2024 Living Situation Answer Date Recorded What is your living situation today? I have a [facility] place to live 04/03/[address] you li ve. Do you have problems with any of the following? None of the above 04/03/2024 Family & Community Support Answer Date Recorded If for any reason you need h elp with day-to-day activities such as bathing, preparing meals, shopping, managing finances, etc., do you get the help you need? I don't need any help 04/03/2024 How often do you feel lonely or isolated from those around you? Not on file 04/03/2024 Food Answer Date Recorded Within the past 12 months, y ou worried that your food would run out before you got money to buy more. Never true 04/03/2024 Within the past 12 months, t he food you bought just didn't last and you didn't have money to get more. Never true 04/03/2024 Transportation Answer Date Recorded In the past 12 months, has l ack of reliable transportation kept you from medical appointments, meetings, work or from getting things needed for daily living? No 04/03/2024 Utilities Answer Date Recorded In the past 12 months has th e electric, gas, oil, or water company threatened to shut off services in your home? No 04/03/2024 Comments No Sex and Gender Information Value Date Recorded Sex Assigned at Not on file Legal Sex Female 17:41 EST Gender Identity Female 06/18/2019 8:54 EST Sexual Orientation Not on file documented as of this encounter Functional Status * Are you deaf or do you have serious difficulty hearing? Answer Date of Assessment Author No 10/02/2020 23:50 River Cavanaugh RN * Are you blind or do you have serious difficulty seeing, even when wearing glasses? Answer Date of Assessment Author No 10/02/2020 23:50 River Cavanaugh RN * Do you have serious difficulty walking or climbing stairs? (5 years old or older) Answer Date of Assessment Author No 10/02/2020 23:50 River Cavanaugh RN * Do you have difficulty dressing or bathing? (5 years old or older) Answer Date of Assessment Author No 10/02/2020 23:50 River Cavanaugh RN * Because of a physical, mental, or emotional condition, do you have difficulty doing errands alone such as visiting a doctor's office or shopping? (15 years old or older) Answer Date of Assessment Author No 10/02/2020 23:50 River Cavanaugh RN documented as of this encounter Mental Status * Because of a physical, mental, or emotional condition, do you have serious difficulty concentrating, remembering, or making decisions? (5 years old or older) Answer Entry Date Author No 10/02/2020 23:50 River Cavanaugh RN documented in this encounter Plan of Treatment Not on file documented as of this encounter Procedures Procedure Name Priority Date/Time Associated Diagnosis Comments C REACTIVE PROTEIN Routine 03/12/2024 documented in this encounter Results * C REACTIVE PROTEIN (03/12/2024) C-Reactive Protein, External 0.57 [facility] POINT OF CARE Blood VENOUS BLOOD / Unknown 03/12/2024 us Carrington Calderon MD CHEMISTRY & BLOOD G ORDERABLES Final Result [facility] POINT OF CARE documented in this encounter Visit Diagnoses Not on filedocumented in this encounter Care Teams Veterinary Laboratory Diagnostician Relationship Specialty Start Date End Date Carrington Calderon MD 1 [facility] Level 1 [place] [address] PCP - General Internal Medicine - Primary Care 12/09/20 Carmelo Hendrickson Coordinator 12/01/23 Abigail Díaz Toilet Attendant 01/04/24 documented as of this encounter
--- OUTSIDE RECORDS SUMMARY | 2024-05-31 00:35 | XMS_ITS | Encounter Summary ---
Author Organization [facility] Address [address] [place] [address] Care Team Providers Care African History Professor Name Role Phone Carrington Calderon MD Primary Care Provi anders Carmelo Hendrickson Unavailable Unavailable Abigail Díaz Unavailable Reason for Visit * Reason Comments Medications Refill Encounter Details Date Type Department Care Team (Late st Contact Info) Description 05/13/2024 Refill [facility] Adult Primary Care - [address] [phone] Carrington Calderon MD [address] [phone] Medications Refill Social History Tobacco Use Types Packs/Day Years Used Date Smoking Tobacco: Every Day Cigarettes 0.5 13.6 Started: 11/10/2010 Smokeless Tobacco: Never Comments:06/13/20 actively try ing to quit about 5-8 cigs/day Alcohol Use Standard Drinks/Week Comments Yes 0 (1 standard drink = 0.6 oz pur e alcohol) rarely [facility] Utilities Answer Date Recorded In the past 12 months has [employer] electric, gas, oil, or water company [...] your living situation today? I have a [facility] place to live 04/03/2024 Think about [...] the past 12 months has th e [employer] gas, oil, or water company threatened to [...] River Cavanaugh RN documented in this encounter Ordered Prescriptions Prescription Sig Dispense Quantity Refills Last Filled Start Date End Date nortriptyline (PAMELOR) 10 mg capsuleIndications:D iabetic polyneuropathy associated with type 2 diabetes mellitus ([facility]),Primary insomnia Take 1 capsule by mouth at bedtime 30 Capsule 05/14/2024 documented in this encounter Miscellaneous Notes * Telephone Encounter - Cortney Galindo RN - 05/14/2024 2934 EST Medication(s) Requested: nortriptyline Preferred Pharmacy: [facility] [address] [place] [address] Is patient out of medication? Unknown Last Refill Date: 02/21/2024 Last Visit Date with Ordering Provider: 02/21/2024 Next Non-Acute Visit Date Scheduled with Care Team: Visit date not found CORTNEY GALINDO RN 05/14/2024 15:39 documented in this encounter Plan of Treatment Not on file documented as of this encounter Visit Diagnoses Diagnosis Diabetic polyneuropathy associated with type 2 diabetes mellitus ([facility]) Primary insomnia Persistent disorder of initiating or maintaining sleep documented in this encounter Discontinued Medications Medication Sig Discontinue Reason Start Date End Da te nortriptyline (PAMELOR) 10 mg capsuleIndications:Diabeti c polyneuropathy associated with type 2 diabetes mellitus ([facility]),Primary insomnia Take 1 Capsule by mouth at bedtime. 02/21/2024 05/14/2024 documented as of this encounter Care Teams African History Professor Relationship Specialty Start Date End Date Carrington Calderon MD 1 [facility] 1 [place] [address] PCP - General Internal Medicine - Primary Care 12/09/20 Carmelo Hendrickson Coordinator 12/01/23 Abigail Díaz Retort Load Expediter 01/04/24 documented as of this encounter
--- OUTSIDE RECORDS SUMMARY | 2024-05-31 00:35 | XMS_ITS | Encounter Summary ---
Author Organization [facility] [place] [address] Care Team Providers Care Dispute Specialist Name Role Phone Carrington Calderon MD Primary Care Provider [phone] Encounter Details Date Type Department Care Team (Late st Contact Info) Description 01/19/2024 Telephone [place] [phone] Unknown None Social History Tobacco Use Types [...] (if other than self): Patient Callback number: [phone] Best time you are available: Any Route Per Clinic Coverage Page documented in this encounter Plan of Treatment Not on file documented as of this encounter Visit Diagnoses Not on filedocumented in this encounter Care Teams Dispute Specialist Relationship Specialty Start Date End Date Carrington Calderon MD 1 [facility] 1 [place] [address] PCP - General Internal Medicine 01/16/24 documented as of this encounter
--- OUTSIDE RECORDS SUMMARY | 2024-05-31 00:35 | XMS_ITS | Encounter Summary ---
Author Organization [facility] Address [address] [place] [address] Care Team Providers Care Nitroglycerin Nitrator Operator Batch Name Role Phone Carrington Calderon MD Primary Care Provi anders Carmelo Hendrickson Unavailable Unavailable Abigail Díaz Unavailable [phone] Encounter Details Date Type Department Care Team (Late st Contact Info) Description 04/19/2024 Patient Outreach [facility] Adult Primary Care - [place] [address] [place], [place] [phone] Sivan Krueger RN Social History Tobacco Use Types Packs/Day Years Used Date Smoking Tobacco: Every Day Cigarettes 0.5 13.6 Started: 11/10/2010 Smokeless Tobacco: Never Comments:06/13/20 actively try ing to quit about 5-8 cigs/day Alcohol Use Standard Drinks/Week Comments Yes 0 (1 standard drink = 0.6 oz pur e alcohol) rarely [facility] Utilities Answer Date Recorded In the past 12 months has [employer], gas, oil, or water [employer] threatened to shut off services in your [...] your living situation today? I have a [facility] place to live 04/03/2024 Think about [...] the past 12 months has th e [employer], gas, oil, or water [employer] threatened to shut off services in your [...] Assessment Author No 10/02/2020 23:50 River Cavanaugh in, RN * Are you blind or do [...] River Cavanaugh RN documented in this encounter Progress Notes * Sivan Krueger RN - 04/19/2024 0937 EST [facility] Integrated Care Management Care Coordination Note design manager has been unable to reach patient by phone for diabetes pathway follow up. Patient has not made contact with forest resource specialist for help getting health insurance. Patient missed visit with director of assessing, and has not followed up to reschedule. PLAN: Follow up in 3 months or sooner if patient returns call. SIVAN KRUEGER RN 04/23/2024 11:27 documented in this encounter Plan of Treatment Not on file documented as of this encounter Visit Diagnoses Not on filedocumented in this encounter Care Teams Nitroglycerin Nitrator Operator Batch Relationship Specialty Start Date End Date Carrington Calderon MD 1 [facility] 1 [place] [phone] PCP - General Internal Medicine - Primary Care 12/09/20 Carmelo Hendrickson Coordinator 12/01/23 Abigail Díaz Pit Inspector 01/04/24 documented as of this encounter
--- OUTSIDE RECORDS SUMMARY | 2024-05-31 00:35 | XMS_ITS | Encounter Summary ---
Author Organization [facility] Address [address] [place] [address] Care Team Providers Care Professor Of Sociology Name Role Phone Carrington Calderon MD Primary Care Provi anders Carmelo Hendrickson Unavailable Unavailable Abigail Díaz Unavailable Reason for Visit * Reason Comments Medications Refill Encounter Details Date Type Department Care Team (Late st Contact Info) Description 01/18/2024 Refill [facility] Adult Primary Care - [address] [address] Carrington Calderon MD [address] [phone] Medications Refill Social History Tobacco Use Types Packs/Day Years Used Date Smoking Tobacco: Every Day Cigarettes 0.5 13.6 Started: 11/10/2010 Smokeless Tobacco: Never Comments:06/13/20 actively try ing to quit about 5-8 cigs/day Alcohol Use Standard Drinks/Week Comments Yes 0 (1 standard drink = 0.6 oz pur e alcohol) rarely [facility] Utilities Answer Date Recorded In the past 12 months has [employer] e electric, gas, oil, or water company [...] curse or threaten to hurt you? 11/15/2023 Comments No Sex and Gender Information Value [...] Refills Last Filled Start Date End Date DULoxetine 40 mg capsule,delayed release(DR/EC)Marcella cations:Anxiety and depression Take 1 capsule by mouth once daily 90 Capsule 3 01/18/2024 documented in this encounter Miscellaneous Notes * Telephone Encounter - Karen Trujillo - 01/18/2024 1407 EDT Medication(s) Requested: Duloxetine Preferred Pharmacy: [facility] Is patient out of [...] documented as of this encounter Care Teams Professor Of Sociology Relationship Specialty Start Date End Date Carrington Calderon MD 1 [facility] [address] [place] [phone] PCP - General Internal Medicine - Primary Care 12/09/20 Carmelo Hendrickson Coordinator 12/01/23 Abigail Díaz Clay Press Operator 01/04/24 documented as of this encounter
--- OUTSIDE RECORDS SUMMARY | 2024-05-31 00:35 | XMS_ITS | Encounter Summary ---
Author Organization [facility] Address [address] [place] [address] Care Team Providers Care Check Writer Salesperson Name Role Phone Carrington Calderon MD Primary Care Provi anders Carmelo Hendrickson Unavailable Unavailable Abigail Díaz Unavailable Reason for Visit * Reason Onset Date Comments Neck Pain 02/06/2024 Encounter Details Date Type Department Care Team (Late st Contact Info) Description 02/06/2024 Telephone [facility] Adult Primary Care - [place] [address] [place] [address] Cedric Yoon MD [address] [place] [address] Neck Pain Social History Tobacco Use Types Packs/Day Years Used Date Smoking Tobacco: Every Day Cigarettes 0.5 13.6 Started: 11/10/2010 Smokeless Tobacco: Never Comments:06/13/20 actively try ing to quit about 5-8 cigs/day Alcohol Use Standard Drinks/Week Comments Yes 0 (1 standard drink = 0.6 oz pur e alcohol) rarely [facility] Utilities Answer Date Recorded In the past [...] River Cavanaugh RN documented in this encounter Miscellaneous Notes * Telephone Encounter - Jesi Lua RN - 02/22/2024 4832 EDT Pt seen 02/21/24 * Telephone Encounter - Jesi Lua RN - 02/07/2024 0831 EDT Left message for pt to call back to see if she went to a local ER (lives in [facility]) or how is she feeling and will [...] on filedocumented in this encounter Care Teams Check Writer Salesperson Relationship Specialty Start Date End Date Carrington Calderon MD 1 [facility] [address] [place] [phone] PCP - General Internal Medicine - Primary Care 12/09/20 Carmelo Hendrickson Coordinator 12/01/23 Abigail Díaz Shear Grinder Operator Helper 01/04/24 documented as of this encounter
--- OUTSIDE RECORDS SUMMARY | 2024-05-31 00:35 | XMS_ITS | Encounter Summary ---
Author Organization [facility] Address [address] [place] [address] Care Team Providers Care Pipe Smoker Machine Operator Name Role Phone Carrington Calderon MD Primary Care Provi anders Carmelo Hendrickson Unavailable Unavailable Abigail Díaz Unavailable [phone] Encounter Details Date Type Department Care Team (Late st Contact Info) Description 03/22/2024 Patient Outreach [facility] Adult Primary Care - [place] [address] [place], [place] [phone] Nohemy Krueger RN Social History Tobacco Use Types [...] Recorded In the past 12 months has [employer], gas, oil, or water [employer] threatened to shut off services in your [...] your living situation today? I have a [facility] place to live 04/03/2024 Think [...] the past 12 months has th e [employer], gas, oil, or water [employer] threatened to shut off services in your [...] documented in this encounter Progress Notes * Nohemy Krueger RN - 03/22/2024 0938 EDT Integrated Care Management Diabetes Pathway Diabetes Self-Management Assessment 1. How long have you had diabetes? More than 10 years 2. How do you think your diabetes treatment is going? Okay- but it could be better 3. What are the greatest strengths you have in managing your diabetes? Taking my medication on the prescribed schedule , Eating healthy, and Getting regular physical activity 4. Please describe your other greatest strengths: n/a 5. Do you take your medicines on schedule and as prescribed? Yes 6. Do you check your blood sugar on schedule? Yes 7. Please describe your schedule: tests once daily in the middle of the day. Used to test 4 times daily, but is sick of the finger sticks. 8. The last time you got your A1C checked, were you meeting your goal?No, my A1C was above goal 9. What are the biggest challenges you have in managing your diabetes:Checking blood sugar as recommended , Problem-solving diabetes challenges, and Paying for medicines, devices or supplies 10. Please describe your other biggest challenges: n/a 11. What do you do when you need help managing your diabetes? I call someone on my care team, like my doctor, nurse, perinatal educator, special education paraeducator or pharmacist and I don't know what to do- I feel like I'm in this alone 12. Please describe your other methods of helping manage your diabetes: n/a 13. Living with chronic diseases like diabetes can be challenging. Listed below are two potential problem areas that people with diabetes may experience. Consider the degree to which each of the two items may have distressed or bothered you DURING THE PAST MONTH and pick the appropriate selection. 13.1. Feeling overwhelmed by the demands of living with diabetes: A very serious problem 13.2. Feeling that I am often failing with my diabetes routine: A very serious problem 14. What other things would you like to talk about? Insurance. Stella's was out of work on medical leave and his insurance was stopped. He works for the state at a chief customer officer in [facility] [employer]. Stella would like help getting insurance. What would you like to talk about first?: Paying for medicines, devices or supplies Diabetes Health Maintenance: Last A1C date/value: Lab Results Component Value Date HGBA1C 8.3 (H) 03/14/2023 HGBA1C 9.7 (H) 07/28/2020 Annual dilated eye exam date: 07/30/2017 Annual foot exam date:11/18/2023 Last Albumin/Creatinine Ratio date: 11/27/2020 On a scale of 1-5 (5 being very confident) how confident are you that you can make adjustments orchanges with your: Medication routine: 5 Diet: 5 Activity: 5 Blood sugar testin CM Assessment: Stella says that she feels like no matter what she does she can't get her diabetes under control . She said that she tries to eat healthy, but she struggles with regular meal times. She is interested in meeting with a perinatal educator. 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 She is interested in managing her diabetes better. Stella's Biggest problem today is lack of health insurance so she can't afford the dex com CGM. This CM will have electronic resources librarian call Stella to discuss insurance. DM-related Self Management Goal: check glucose 2 times daily on a regular basis. Intervention: referral to electronic resources librarian, and CDE Follow up plan: CM will follow-up in one month documented in this encounter Plan of Treatment Not on file documented as of this encounter Visit Diagnoses Not on filedocumented in this encounter Care Teams Pipe Smoker Machine Operator Relationship Specialty Start Date End Date Carrington Calderon MD 1 [facility] 1 [place] [phone] PCP - General Internal Medicine - Primary Care 12/09/20 Carmelo Hendrickson Coordinator 12/01/23 Abigail Díaz Music Mixer 01/04/24 documented as of this encounter
--- OUTSIDE RECORDS SUMMARY | 2024-05-31 00:35 | XMS_ITS | Encounter Summary ---
Author Organization [facility] Address [address] [place] [address] Care Team Providers Care Account Contact Associate Name Role Phone Carrington Calderon MD Primary Care Provi anders Carmelo Hendrickson Unavailable Unavailable Abigail Díaz Unavailable [phone] Encounter Details Date Type Department Care Team (Late st Contact Info) Description 04/06/2024 Abstract [facility] Adult Primary Care - [place] 1 [place] [address] Carrington Calderon MD 1 [facility] 1 [place] [phone] Social History Tobacco Use Types Packs/Day Years Used Date Smoking Tobacco: Every Day Cigarettes 0.5 13.6 Started: 11/10/2010 Smokeless Tobacco: Never Comments:06/13/20 actively try ing to quit about 5-8 cigs/day Alcohol Use Standard Drinks/Week Comments Yes 0 (1 standard drink = 0.6 oz pur e alcohol) rarely C Utilities Answer Date Recorded In the past 12 months has [employer], gas, oil, or water company threatened to [...] any time in the past 12 m [facility], were you homeless or [...] your living situation today? I have a [facility] place to live 04/03/2024 Think about [...] Procedure Name Priority Date/Time Associated Diagnosis Comments VITAMIN D (25,OH) Routine 03/12/2024 documented in this encounter Results * VITAMIN D (25,OH) (03/12/2024) 25OH Vitamin D Tot, External 17.5 [facility] POINT OF CARE Blood VENOUS BLOOD / Unknown 03/12/2024 Carrington Calderon MD CHEMISTRY & BLOOD G ORDERABLES Final Result [facility] POINT OF CARE documented in this encounter Visit Diagnoses Not on filedocumented in this encounter Care Teams Account Contact Associate Relationship Specialty Start Date End Date Carrington Calderon MD 1 [facility] [address] [place] [address] PCP - General Internal Medicine - Primary Care 12/09/20 Carmelo Hendrickson Coordinator 12/01/23 Abigail Díaz Talent Assistant 01/04/24 documented as of this encounter
--- OUTSIDE RECORDS SUMMARY | 2024-05-31 00:35 | XMS_ITS | Encounter Summary ---
Author Organization [facility] Address [address] [place] [address] Care Team Providers Care Product Design Specialist Name Role Phone Carrington Calderon MD Primary Care Provi anders Carmelo Hendrickson Unavailable Unavailable Abigail Díaz Unavailable Encounter Details Date Type Department Care Team (Late st Contact Info) Description 04/03/2024 Patient Outreach [facility] Adult Primary Care - [place] [address] [place], [place] [phone] Carmelo Hendrickson Social History Tobacco Use Types Packs/Day Years Used Date Smoking Tobacco: Every Day Cigarettes 0.5 13.6 Started: 11/10/2010 Smokeless Tobacco: Never Comments:06/13/20 actively try ing to quit about 5-8 cigs/day Alcohol Use Standard Drinks/Week Comments Yes 0 (1 standard drink = 0.6 oz pur e alcohol) rarely [facility] Utilities Answer Date Recorded In the past 12 months has [employer], gas, oil, or water [employer] threatened to shut off services in your [...] in the past 12 m [facility], were you homeless or living [...] your living situation today? I have a [facility] place to live 04/03/2024 Think about [...] the past 12 months has th e [employer], gas, oil, or water [employer] threatened to shut off services in your [...] documented in this encounter Progress Notes * Carmelo Hendrickson - 04/03/2024 1134 EDT [facility] ICM Supervisor Money Room Initial Note Referred by: Nohemy Krueger RNCM PCP: CARRINGTON CALDERON Encounter type: Telephone Reason for Referral: help getting insurance Notes: RC called and LVM for Stella. Plan / Action Items: RC will follow up in 1 week. Carmelo Hendrickson 04/03/24 11:34 documented in this encounter Plan of Treatment Not on file documented as of this encounter Visit Diagnoses Not on filedocumented in this encounter Care Teams Product Design Specialist Relationship Specialty Start Date End Date Carrington Calderon MD 1 [facility] 1 [place] [phone] PCP - General Internal Medicine - Primary Care 12/09/20 Carmelo Hendrickson Coordinator 12/01/23 Abigail Díaz Missile Control Pilot 01/04/24 documented as of this encounter
--- OUTSIDE RECORDS SUMMARY | 2024-05-31 00:35 | XMS_ITS | Clinical Summary ---
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 021 Active lidocaine 5 % (LIDODERM) 5 % patchIndications: Chronic midline low back pain without sciatica Place 1 Patch onto the skin daily. Patch(es) may remain in place for up to 12 hours in any 24-hour period. 30 Patch 2 023 Active omeprazole (PRILOSEC) 20 mg capsuleIndication s:Gastroparesis Take 1 Capsule by mouth daily. 90 Capsule 3 023 Active prochlorperazine (COMPAZINE) 25 mg suppositoryIndica tions:Cyclic vomiting syndrome Place 1 Suppository rectally every 12 hours as needed for Nausea. 6 Suppository 11 023 Active prochlorperazine (COMPAZINE) 10 mg tabletIndications :Cyclic vomiting syndrome Take 1 Tablet by mouth every 8 hours as needed for Nausea. 8 Tablet 11 07/14/2 023 Active ZOLMitriptan (ZOMIG) 2.5 mg tabletIndications :Catamenial disorder,Migraine with aura and without status migrainosus, not intractable,Cycli c vomiting syndrome Take 1 Tablet by mouth 2 times daily. BID starting 2 days prior to onset of menses, continuing for a total of 5 days (10 doses) 10 Tablet 023 Active Blood-Glucose Sensor (DEXCOM G6 SENSOR) deviceIndications :Type 2 diabetes mellitus with diabetic polyneuropathy, with long-term current use of insulin ([facility]) Inject 1 Each into the skin every 10 days. 9 Each Active ondansetron (ZOFRAN-ODT) 4 mg disintegrating tabletIndications :Cyclic vomiting syndrome Take 1 Tablet by mouth every 8 hours as needed for Nausea. 30 Tablet Active insulin glargine (LANTUS SOLOSTAR/SEMGLEE) 100 unit/mL (3 mL) injection penIndications:Ty pe 2 diabetes mellitus with diabetic polyneuropathy, with long-term current use of insulin ([facility]) Inject 44 Units into the skin at bedtime. 36 mL Active SITagliptin phosphate (JANUVIA) 100 mg tabletIndications :Type 2 diabetes mellitus with diabetic polyneuropathy, with long-term current use of insulin ([facility]) Take 1 Tablet by mouth daily. 90 Tablet Active Additional Information Patient not taking.Reported on 02/21/2024 metoclopramide HCl (REGLAN) 10 mg tablet Take 1 Tablet by mouth 3 times daily before meals. Starting 3 days before menses and stopping after end of period 270 Tablet Active gabapentin (NEURONTIN) 300 mg capsuleIndication s:Diabetic polyneuropathy associated with type 2 diabetes mellitus ([facility]) Take 1 Capsule by mouth every morning AND 4 Capsules at bedtime. 450 Capsule Active SUMAtriptan (IMITREX) 20 mg/actuation nasal spray USE 1 SPRAY(S) INTO RIGHT NOSTRIL NEEDED FOR MIGRAINE HEADACHE 6 Each Active Blood-Glucose Transmitter (DEXCOM G6 TRANSMITTER) deviceIndications :Type 2 diabetes mellitus with diabetic polyneuropathy, with long-term current use of insulin ([facility]) Inject 1 Each into the skin every 3 months. 1 Each 4 024 Active HUMALOG KWIKPEN INSULIN 100 unit/mL injectable penIndications:Ty pe 2 diabetes mellitus with diabetic polyneuropathy, with long-term current use of insulin ([facility]) 8 units with breakfast, 15 units with lunch/dinner 30 mL 11 Active LORazepam (ATIVAN) 0.5 mg tabletIndications :Anxiety Take 1 Tablet by mouth daily as needed for Anxiety. Daily Max: 0.5 mg 30 Tablet 3 024 Active traMADol (ULTRAM) 50 mg tabletIndications :Chronic midline low back pain without sciatica Take 1 Tablet by mouth every 6 hours as needed for Pain. Daily Max: 200 mg 30 Tablet 5 024 Active blood glucose meterIndications: Type 2 diabetes mellitus with diabetic polyneuropathy, with long-term current use of insulin ([facility]) Brand: Freestyle Lite 1 Each 024 Active blood glucose test stripsIndications :Type 2 diabetes mellitus with diabetic polyneuropathy, with long-term current use of insulin ([facility]) Brand: Freestyle Lite, check glucose 4 times per day for insulin dose titration 100 Each 024 Active lancetsIndication s:Type 2 diabetes mellitus with diabetic polyneuropathy, with long-term current use of insulin ([facility]) Brand: Freestyle, check glucose 4 times per day for insulin dose titration 100 Each 11 024 Active DULoxetine 40 mg capsule,delayed release(DR/EC)Ind ications:Anxiety and depression Take 1 capsule by mouth once daily 90 Capsule 3 024 Active nortriptyline (PAMELOR) 10 mg capsuleIndication s:Diabetic polyneuropathy associated with type 2 diabetes mellitus ([facility]),Primary insomnia Take 1 capsule by mouth at bedtime 30 Capsule Active nortriptyline (PAMELOR) 10 mg capsuleIndication s:Diabetic polyneuropathy associated with type 2 diabetes mellitus ([facility]),Primary insomnia Take 1 Capsule by mouth at bedtime. 30 Capsule 2 024 2023 Discontinued Hospital, Clinic, or Other Facility Administered [...] 06/19 Patient has given permission for [facility] to verbally discuss the [...] Confirmed patient has Traditional Medicaid now. TCN: [id number] Category: P2 Garfield Healy 06/10/2020 19:11 Problem Noted Date Diagnosed Date Tobacco use 12/21/2021 Skin infection 12/21/2021 Pannus, abdominal 12/21/2021 Overview (04/01/2022): - as of 01/2022, does not meet criteria for surgical intervention (see 01/29/22 note) Neuropathic diabetic ulcer of foot ([facility]) Cyclic vomiting syndrome 08/10/2020 Overview (06/11/2021): - Confirmed on gastric emptying study in [...] current use of insulin ([facility]) 06/05/2020 Overview (11/17/2022): - Dx approx age 25, 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 Told arthritis in spine in teen yrs. Anxiety and depression 05/12/2010 Overview (06/11/2021): - Onset teen yrs. Treated with citalopram in approx 2012 - had SI, treated at [facility]. Marijuana prn to help with stress/anxiety sx -Describes paradoxical effect of citalopram, reportedly resulting in the above admission at [facility] Migraine with aura and witho ut status migrainosus, not intractable Overview (09/03/2015): Dx approx age 15. Average 2/ month. Chronic left ear ?trigger. Migraine with aura - pt experiences shooting stars mins before onset of leon every time. Resolved Problems Problem Noted Date Diagnosed Date Resolved Date Vomiting 10/03/2020 06/11/2021 Intractable vomiting 10/02/2020 022 Dehydration 08/10/2020 08/10/2020 Abdominal pain 08/09/2020 08/10/2020 Generalized abdominal pain 08/09/2020 0 08/10/2020 Emesis, persistent 08/09/2020 Admission for sterilization 06/27/2020 06/11/2021 Overview (06/27/2020): Added automatically from request for surgery [id number] of unknown anatomic location 06/20/2020 06/27/2020 Overview (06/27/2020): Clinical Group: M Patient HPI: Cristy Luo is an 35 y.o. , patient with history of ectopic and positive HCG during post operative period for unrelated procedure. Reported cramping to [facility] nurse on 06/19. LMP: End of the first week of May Rh status: B- Rhogam: Given by [facility] 06/20/20 Desired : Unknown Ectopic risk factors: hx of ectopic pregnancies and five D&C's . 10/2018: Interstitial treated w/ MTX. HCGs Lab Results Component Value Date HCGPREG 49 (H) 06/25/2020 HCGPREG 111 (H) 06/23/2020 HCGPREG 152 (H) 06/21/2020 HCGPREG 108 (H) 06/19/2020 HCGPREG 2,954 (H) 10/11/2019 HCGPREG 707 (H) 09/02/2019 HCGPREG 316 (H) 08/31/2019 Plan: 06/20/2020: US today and given RhoGham by [facility]. Place in [facility] per MD Esteban [...] repeat HCG 06/25 & U/S 06/25 [facility]. MARCELO Dale 06/25/20: U/S results - [...] of toe of left foot 06/05/2020 06/11/2021 Overview (06/05/2020): Added automatically from request for surgery [id number] Type 2 diabetes mellitus wit h left diabetic foot ulcer ([facility]) 05/03/2020 03/27/2021 Osteomyelitis of great toe o f left foot ([facility]) 03/12/2020 06/11/2021 Diabetic foot ulcer associat ed with diabetes mellitus due to underlying condition ([facility]) 03/07/2020 03/27/2021 Diabetic foot infection ([facility]) 03/06/2020 06/11/2021 Diabetic foot ulcer ([facility]) 03/06/2020 06/11/2021 Cellulitis of great toe of left foot 11/26/2019 06/11/2021 Encounter for sterilization 11/20/2019 06/20/2020 Overview (11/20/2019): Added automatically from request for surgery [id number] Missed 10/12/2019 10/15/2019 Overview (10/15/2019): Clinical Group: ED / [facility] HPI: Cristy [...] procedure scheduled today (10/11) with Dr. Martínez.. MARCELO Dale 10/15/2019 Call to check in with patient just to make sure she is feeling well and then can remove from beta book (sac seen during procedure, no pathology necessary). Nishant Oropeza 10/15/19: Spoke with Catherine, doing well, she is connected to & she will call for talk Appt.. MARCELO Dale with type 2 diabet es mellitus in first trimester 10/01/2019 11/02/2019 Overview (10/01/2019): 1. T2DM Datin05/12/2020, by Ultrasound, Patient's last [...] PCR results found No results found for: [id number] HgA1c [ ] 1T pending [ ] [...] - patient denies history [ ] Contraception Assessment & Plan (10/01/2019 16:48 EDT): - We began by discussing the risks [...] miscarriages in first trimester 10/01/2019 11/02/19 20 Assessment & Plan (10/01/2019 16:46 EDT): - Aside from normal first trimester ultrasounds [...] miscarriage. Rh negative status during 10/01/2019 11/02/2019 Assessment & Plan (10/01/2019 16:46 EDT): - Precautions for vaginal bleeding reviewed, and reviewed need for Rhogam in the setting of bleeding or miscarriage. Obesity affecting in first trimester 10/01/2019 11/02/2019 High-risk in first trimester 10/01/2019 11/02/2019 Overview (10/01/2019): Global updated under problem diabetes. Assessment & Plan (10/01/2019 16:50 EDT): - Reviewed [facility] group practice and clinic flow. - labs ordered today. - Desires cell free DNA, prior auth submitted today. Undecided on CF/SMA testing. - Patient reports normal Paps but unclear when last performed, will likely need at next visit. Ectopic 10/25/2018 10/12/2019 Overview (12/25/2018): Clinical Group: MFM (eg. COGS, ED patient, [...] Quant Beta HCG = 1652.8 [place]IU[place] [facility] [place]: Quant Beta HCG, Preg 1,117 mIU/ml* (Ref range: <5 mIU/ml) 11/21/18: Quant Beta HCG 299.98 mIU/mL at [facility] (ref range <2.39) 12/03/18: Quant Beta HCG, 41.94 mIU/ml at [facility] 12/13/18: Quant Beta HCG, 13.63 mIU/ml at [facility] Plan: 10/24/18: per Dr. Coronado repeat [...] lab 11/08. States will go 11/09/18[place] 11/10/18: Plan per Dr. Almeida, repeat HCG in 1 week (11/17). Results & plan reviewed with Cristy. MARCELO Dale 11/21/18 Pt plans on going to [facility] today. [facility] 11/21/18. [facility] 299.98. Repeat in 1 week. Pt would like to go 11/27/18([facility]) as off from work [facility] 12/01/18: LVM for pt to repeat lab [...] Gill repeat HCG in one week (12/20), MFDickson PEREYRA 03/02/19. LVM for Cristy with plan. MARCELO Dale 12/25/18: [place] [facility] [place] last HCG was 12/13, NOS for 12/20, LVM X3, letter sent, will remove from Beta Book.MARCELO Dale Spontaneous miscarriage 09/04/201510/05 Overview (09/04/2015): 02/18, 08/19. Followed by Dr. 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) - intolerant of MFM (diarrhea) Encounters Date Type Department Care Team Description 05/13/[address] [address] Carrington Calderon MD Medications Refill 04/19/2024 Patient Outreach [address] [address] Nohemy Krueger RN 04/12/2024 Patient Outreach [address] [address] Carmelo Hendrickson 04/06/[address] [address] Carrington Calderon MD 04/06/[address] [address] Carrington Calderon MD 04/06/[address] [address] Carrington Calderon MD 04/06/[address] [address] Carrington Calderon MD 04/05/[address] [phone] [address] F[address] CD Diabetes (Diabetes pathway patient) 04/03/2024 Patient Outreach [address] [phone] KeerthiCarmelo barragan 04/03/2024 Patient Outreach [facility] [address] [place], [place] [phone] Nohemy Krueger RN 03/22/2024 Patient Outreach [facility] [address] [place], [place] [address] Nohemy Krueger RN 03/16/2024 Telephone [facility] [address] [place], [place] [phone] Carrington Calderon MD Coordination Of Care from Last 3 Months Immunizations Name Administration [...] History Date Comments Obesity, unspecified Spontaneous miscarriage 09/04/201515, . Followed by Dr. L[facility] History of general anesthesia Osteomyelitis ([facility]) of left great toe-s/p amputation Nausea & vomiting occasionally Diabetes ([facility]) A1c 10.3 on - poorly controlled Hx of ectopic 06/20/2020 Hx of migraines Does not exercise 06/13/2020 due to infecte d toe- typically on a normal basis- walk 3 dogs and hiking- climbing stairs is not an issue. Chest pain r/t anxiety Productive cough pt currently qu itting smoking- clear secretions. Diabetes mellitus, type 2 ([facility]) pt check blood sugars [...] Gastroparesis Neuropathic diabetic ulcer o f foot ([facility]) 09/17/2021 Family History Medical History Relation Comments Diabetes Maternal Aunt Cancer Maternal Grandmother Breast Diabetes Paternal Aunt Diabetes Paternal Grandmother Diabetes Paternal Uncle Relation Status Comments Maternal Aunt Maternal Grandmother Paternal Aunt Paternal Grandmother Paternal Uncle Social History Tobacco Use Types Packs/Day Years Used Date Smoking Tobacco: Every Day Cigarettes 0.5 13.6 Started: 11/10/2010 Smokeless Tobacco: Never Tobacco Cessation:Ready to Q uit: Not Asked; Counseling Given: Not Answered Comments:06/13/20 actively trying to quit about 5-8 cigs/day Alcohol Use Standard Drinks/Week Comments Yes 0 (1 standard drink = 0.6 oz pur e alcohol) rarely [email or web address] Answer Date Recorded In the past [...] any time in the past 12 [facility], were you homeless or living [...] your living situation today? [facility] 04/03/2024 Think about [...] Anes PTL Vivian A1 A5 Name Clin 2006 SAB 6w0 d SAB Comments:first pregnan cy; ex ; twin confirmed by US at [facility]; no medical or surgical tx 01/2015 SAB 9w0 d SAB Comments:D&C at [facility]; f irst current 08/2015 SAB 10w 0d SAB Comments:D&C at [facility]; 2 nd with current 02/2017 SAB 6w0 d SAB Comments:D&C at [facility]; t hird with current 06/2017 SAB 6w0 d SAB Comments:D&C at [facility]; nonviable seen on US; fourth with current 01/2018 SAB 6w0 d SAB Comments:D&C at [facility] after nonviable on US; had to have repeat D&C in April for retained POCs 10/2018 Ectopic 10w 4d ECTOPIC Comments:interstitial diagnosed at [facility]; given MTX 10/26/1810/2019 SAB Comments:D+C Last Filed Vital Signs Vital Sign Reading Time Taken Comments Blood Pressure 130/80 02/21/2024 1003 EDT Pulse 78 12/01/2023 1545 EDT Temperature 36.9 ??C (98.4 ??F) 12/01/2023 1545 EDT Respiratory Rate 20 12/01/2023 1545 EDT Oxygen Saturation 96% 08/05/2023 1107 EST Inhaled Oxygen Concentration - - Weight 98 kg (216 lb) 12/01/2023 1545 EDT Height 164 cm (5' 4.57) 06/27/2023 1431 EST Body Mass Index 36.43 06/27/2023 1431 EST Plan of Treatment Health Maintenance Due Date Last Done Comments Hepatitis B Vaccine (1 of 3 - 19+ 3-dose series) 2004 Eye Exam 07/30/2017 07/30/2016 Microalbumin/Creatinine Ratio 11/27/2020 11/28/2019 Lipid Profile Screening (Cholesterol) 11/27/2022 11/28/2019 Foot Exam 11/18/2023 11/17/2022, 11/04, 09/17/2021 Prescription Agreement 11/18/2023 11/17/2022 COVID-19 Vaccine ( season) 2024 11/17/2022, 07/06/2021, 01/28/2021 Influenza Immunization (Adult) (#1) 2024 03/09/2021 Hemoglobin A1C (Ha1C) 06/12/2024 03/12/2024 , 03/14/2023, 07/28/2020, Additional history exists Depression Screening 06/27/2024 06/27/2023, 06/14/2023, 11/17/2022, Additional history exists Preventive Care Visit 11/17/2024 11/17/2022 Social Determinants Of Health (SDOH) 04/03/2025 04/03/2024, 11/15/2023, 11/15/2023 Tetanus (Adult) Immunization 06/06/2026 06/06/2016 Pap Smear (Cervical Cancer Screening) 06/27/2026 06/27/2023 Cervical Cancer Screening 06/27/2028 HPV/Cotest (Cervical Cancer Screening) 06/27/2028 06/27/2023, 06/27/2023 Pertussis (Adult) Immunization Completed 06/06/2016 Opioid Informed Consent Discontinued 11/28/2019 Pneumococcal Immunization Completed 11/17/2022 Advance Directive Completed 11/23/2022, 11/17/2022 RETIRED Cervical Cancer Screening Discontinued 06/27/2023 HIV Screening Completed 11/11/2023 Hepatitis C Screen Completed 11/11/2023 HPV Vaccines Aged Out No longer eligi ble based on patient's age to complete this topic Procedures Procedure Name Priority Date/Time Associated Diagnosis Comments C REACTIVE PROTEIN Routine 03/12/2024 VITAMIN D (25,OH) Routine 03/12/2024 HEMOGLOBIN A1C Routine 03/12/2024 COMPLETE BLOOD COUNT AND DIFFERENTIAL Routine 03/12/2024 HEPATITIS C AB W REFLEX TO HCV RNA BY PCR Routine 11/11/2023 13:53 EDT Encounter for screening for other viral diseases HIV 1/2 ANTIGEN AND ANTIBODY, 4TH GENERATION Routine 11/11/2023 13:53 EDT Encounter for screening for other viral diseases PAP TEST Routine 06/27/2023 16:00 EST Cervical cancer screening LIPID PROFILE (INCLUDES CHOLESTEROL, TRIGLYCERIDES, HDL, LDL) Routine 11/28/2019 15:56 EDT Type 2 diabetes mellitus with other specified complication, unspecified whether custodial insulin use ([facility]) URINE [id number]-[id number] RATIO (ACR) Routine 11/28/2019 15:56 EDT Type 2 diabetes mellitus with other specified complication, unspecified whether supervisor 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 insulin use ([facility]) from Last 3 Months or Most Recently Relevant to Health Maintenance Results * VITAMIN D (25,OH) (03/12/2024) 25OH Vitamin D Tot, External 17.5 [facility] Blood VENOUS BLOOD / Unknown 03/12/2024 us Carrington Calderon MD CHEMISTRY & BLOOD G ORDERABLES Final Result [facility] * COMPLETE BLOOD COUNT AND DIFFERENTIAL (03/12/2024) WBC, External 14.69 [facility] RBC, External 5.14 [facility] Hemoglobin, External 16.1 % [facility] HCT, External 45.9 [facility] MCV, External 89 [facility] MCH, External 31.3 g/dL [facility] MCHC, External 35.1 g/dL [facility] PLT, External 342 [facility] RDW-CV, External 12.4 [facility] Neutrophils, External 53.3 [facility] Lymphocytes, External 34.7 [facility] Monocytes, External 8.2 [facility] Eosinophils, External 3.0 [facility] Basophils, External 0.5 [facility] ABS Neutrophils, External 7.83 [facility] ABS Lymphs, External 5.10 [facility] ABS Monocytes, External 1.20 [facility] ABS Eosinophils, External 0.44 [facility] ABS Basophils, External 0.07 [facility] Blood VENOUS BLOOD / Unknown 03/12/2024 Carrington Calderon MD PACKAGES & DNA PROB E ORDERABLES Edited Result - Final Performing Organization Address City/[facility]/ZIP Co de Phone Number [facility] POINT OF CARE * C REACTIVE PROTEIN (03/12/2024) Pathologist [facility] C-Reactive Protein, External 0.57 [facility] Blood VENOUS BLOOD / Unknown 03/12/2024 Carrington Calderon MD CHEMISTRY & BLOOD G ORDERABLES Final Result [facility] POINT OF CARE * HEMOGLOBIN A1C (03/12/2024) Pathologist [facility] Hemoglobin A1C, External 11.9 % [facility] POINT [facility] CARE Est Avg Glucose, External 5.7-6.4 mg/dL [facility] POINT OF CARE Blood VENOUS BLOOD / Unknown 03/12/2024 Carrington Calderon MD CHEMISTRY & BLOOD G ORDERABLES Final Result [facility] POINT OF CARE * HEPATITIS C AB W REFLEX TO HCV RNA BY PCR (11/11/2023 13:53 EDT) Pathologist [facility] Hep C Antibody Negative Negative 11/11/2023 17:03 EDT [facility] Blood VENOUS BLOOD / Unknown Venipuncture / Unknown 11/11/2023 13:53 EDT 11/11/2023 13:55 EDT Carrington Calderon MD CHEMISTRY & BLOOD G ORDERABLES Final Result Performing Organization Address [facility]/ZIP Co de Phone Number [facility] [address] [place] [address] * HIV 1/2 ANTIGEN AND ANTIBODY, 4TH GENERATION (11/11/2023 13:53 EDT) HIV 1 and 2 Antibody/p24 Antigen, 4th Generation Negative Negative 11/11/2023 17:04 EDT [facility] Comment:If acute HIV-1 infec tion is suspected in a high risk patient, submit plasma specimen for HIV-1 RNA quantitation test. Blood VENOUS BLOOD / Unknown Venipuncture / Unknown 11/11/2023 13:53 EDT 11/11/2023 13:55 EDT Narrative [facility] - 11/11/2023 17:04 EDT Fourth Generation assay performed on the Siemens [employer] XPT. Carrington Calderon MD IMMUNOLOGY AND SERO LOGY ORDERABLES Final Result Performing Organization Address [facility] Co de Phone Number [facility] [address] [place] [id number] * PAP TEST (06/27/2023 16:00 EST) Specimens A. Cervix and/or Endocervix , ThinPrep Imaging System with Manual Evaluation 07/13/2023 16:25 EST [facility] Specimen Adequacy Satisfactory for Evaluation - transformation zone component absent 07/13/2023 16:25 EST [facility] General Categorization Negative for intraepithelial lesion or malignancy 07/13/2023 16:25 EST [facility] Attestation . 07/13/2023 16:25 [facility] at 1625 Clinical History screening 07/13/19 24 16:25 EST [facility] HPV The result for the Human Papillomavirus (HPV) Detection-High Risk Types is Negative. No E6 or E7 mRNA is detected from HPV types 16,18,31,33,35,39 ,45,51,52,56,58,5 9,66, and 68 by cable tester mediated amplification.Lorena ting was performed on specimen [id number] and was resulted on 07/13/2023 1625 EST by JANET, LAB INSTRUMENT RESULTS IN 07/13/2023 16:25 EST [facility] Performing Lab [facility] 07/13/2023 16:25 EST [facility] Scanned Images 07/13/2023 16:25 EST [facility] Pap Test CERVIX UTERI STRUCTURE / Unknown 06/27/2023 16:00 EST 06/27/2023 16:00 EST us Carrington Calderon MD PATHOLOGY ORDERABLE S Final Result Performing Organization Address City/[facility]/ZIP Co de Phone Number [facility] [address] [place] [phone] * (ABNORMAL) ALBUMIN, URINE (11/28/2019 15:56 EDT) Albumin, Urine 11.3 See Note mg/dL 2019 16:47 EDT [facility] Comment: NOTE: Reference range not established Creatinine, Urine 143.1 See Note mg/dL 11/28/2019 16:47 EDT [facility] Comment: NOTE: Reference range not established Lab Urine Albumin to Creatinine Ratio 79(H) <30 ug/mg Creatinine 11/28/2019 16:47 T [facility] Comment: Urine Albumin/Creatinine Ratio: Normal: <30 ug/mg Creatinine Moderately increased albuminuria: 30-300 ug/mg Creatinine Severley increased albuminuria: >300 ug/mg Creatinine Urine URINE SPECIMEN OBTAINED BY CLEAN CATCH PROCEDURE / Unknown Urine Collect / Unknown 11/28/2019 15:56 EDT 11/28/2019 15:56 EDT us Tonja Alejandro PA-C CHEMISTRY & BLOOD GA S ORDERABLES Final Result [facility] [address] [place] [phone] * LIPID PROFILE (INCLUDES CHOLESTEROL, TRIGLYCERIDES, HDL, LDL) (11/28/2019 15:56 EDT) Cholesterol 179 See Note mg/dL 11/28/2019 17:12 [facility] Comment: Acceptable: ?<200 mg/dL Borderline High: 200-239 mg/dL High: ?> or = 240 mg/dL HDL 38 See Note mg/dL 11/28/2019 17:12 [facility] Comment: Low: ? <40 mg/dL Normal: ??40-60 mg/dL High: ?>60 mg/dL LDL, Calculated 61 See Note mg/dL 11/28/2019 17:12 [facility] Comment: Optimal: ? <100 mg/dL Near Optimal: ?100-129 mg/dL Borderline High: 130-159 mg/dL High: ?160-189 mg/dL Very High: ? > or = 190 mg/dL Triglyceride 398 See Note mg/dL 11/28/2019 17:12 [facility] Comment: Normal: ? <150 mg/dL Borderline High: ??150 - 199 mg/dL High: ? 200 - 499 mg/dL Very High: ?> or = 500 mg/dL Chol/HDL Ratio 4.7 See Note 11/28/2019 17:12 [facility] Comment: No reference range has been established for CHOL/HDL ratio. Non HDL Cholesterol 141 See Note mg/dL 11/28/2019 17:12 [facility] Comment: Desirable: ?<130 mg/dL Borderline High: ??130-159 mg/dL High: ? 160-189 mg/dL Very High: ?> or = 190 mg/dL Blood VENOUS BLOOD / Unknown Venipuncture / Unknown 11/28/2019 15:56 EDT 11/28/2019 15:56 EDT Tonja Alejandro PA-C CHEMISTRY & BLOOD GA S ORDERABLES Final Result [facility] [address] [place] [address] from Last 3 Months or Most Recently Relevant to Health Maintenance Advance Directives For more information, please contact: [phone] Documents on File Type Date Recorded Patient Entry Level Software Developer Expl anation Advance Directive 11/23/2022 10:36 Appt [...] participated in the discussion? Patient Care Teams Box Covering Machine Operator Relationship Specialty Start Date End Date Carrington Calderon MD 1 [facility] [address] [place] [phone] PCP - General Internal Medicine - Primary Care 12/09/20 Carmelo Hendrickson Coordinator 12/01/23 Abigail Díaz Senior Web Applications Developer 01/04/24
--- OUTSIDE RECORDS SUMMARY | 2024-05-31 00:35 | XMS_ITS | Encounter Summary ---
Author Organization [facility] Address [address] [place] [address] Care Team Providers Care Home Paraprofessional Name Role Phone Carrington Calderon MD Primary Care Provi anders Carmelo Hendrickson Unavailable Unavailable Abigail Díaz Unavailable Reason for Visit * Reason Comments Follow-up Encounter Details Date Type Department Care Team (Late st Contact Info) Description 02/21/2024 9:45 EDT Office Visit [facility] Adult Primary Care - [address] [phone] Carrington Calderon MD 1 [facility] Level [address] [place] [phone] Type 2 diabetes mellitus with diabetic polyneuropathy, with long-term current use of insulin (HCC-CMS) ([facility]) (Primary Dx); Migraine with aura and without status migrainosus, not intractable; Diabetic polyneuropathy associated with type 2 diabetes mellitus (HCC-CMS); Primary insomnia; Does not have health insurance Social History Tobacco Use Types Packs/Day Years Used Date Smoking Tobacco: Every Day Cigarettes 0.5 13.6 Started: 11/10/2010 Smokeless Tobacco: Never Tobacco Cessation:Ready to Q uit: Not Asked; Counseling Given: Not Answered Comments:06/13/20 actively trying to quit about 5-8 cigs/day Alcohol Use Standard Drinks/Week Comments Yes 0 (1 standard drink = 0.6 oz pur e alcohol) rarely [facility] Utilities Answer Date Recorded In the [...] hurt you? 11/15/2023 How often does anyone, bennynick waldron family, insult, scream, curse or threaten [...] Blood Pressure 130/80 02/21/2024 1003 EDT Pulse - - Temperature - - Respiratory Rate - - Oxygen Saturation - - Inhaled Oxygen Concentration - - Weight - - Height - - Body Mass Index - - documented in this encounter Functional Status * Are you [...] Date of Assessment Author No 10/02/2020 23:50 EDT River Francisco RN documented as of this encounter Mental [...] polyneuropathy associated with type 2 diabetes mellitus (HCC-CMS),Primary insomnia Take 1 Capsule by mouth at bedtime. 30 Capsule 2 02/21/2024 4 documented in this encounter Progress Notes * Carrington Calderon MD - 02/21/2024 0945 EDT Primary Care Office Visit Assessment & Plan 1. Type 2 diabetes mellitus with diabetic polyneuropathy, with long-term current use of insulin ([facility]-CMS) ([facility]) I am concerned about the fact that Stella is not able to take her medications because of her financialsituation. Will connect her with our social science teacher who she has met with in the past. In the meantime, I am not hearing that her numbers are not so out of control that we should consider making any adjustments to her insulin. We will have more info when she gets her CGM up and running again, hopefully in the next couple of weeks. 2. Migraine with aura and without status migrainosus, not intractable Did not address today. 3. Diabetic polyneuropathy associated with type 2 diabetes mellitus ([facility]) Today we discussed the option of replacing the trazodone with a tricyclic antidepressant to try andaddress insomnia and neuropathy. However, there is a concern about the nortriptyline interacting with tramadol and duloxetine and increasing risk of serotonin syndrome, also interacting with tramadolto reduce seizure threshold. Will do some further investigation as to whether this may be a safe combo or not. If we were to refill his tramadol, the next step would be conventional opioids. She tells me today she does not feel quite ready to cross the threshold as yet. - nortriptyline (PAMELOR) 10 mg capsule; Take 1 Capsule by mouth at bedtime. Dispense: 30 Capsule; Refill: 2 4. Primary insomnia As above - nortriptyline (PAMELOR) 10 mg capsule; Take 1 Capsule by mouth at bedtime. Dispense: 30 Capsule; Refill: 2 5. Does not have health insurance Refer back to social work as noted. No follow-ups on file. Patient education was direct. Barriers were assessed and addressed as needed. Subjective Stella is a 38 y.o. female presenting with Follow-up HPI Last visit with me was in November. At the time, we made some small changes to her mealtime insulin, increasing lunchtime and dinnertime doses from 12 up to 15 units. Headache clinic referral was placed for migraine and cyclic vomiting. Referral was placed for social work for cyclic vomiting and associated limitations on her ability to work. Trazodone was added for insomnia. Today, Stella reports that she is most troubled by increased neuropathy symptoms and generalized pain in the feet. Neuropathy pain is worst at nighttime, throughout the night. She takes her highest doseof gabapentin in the evening, 1200 mg. She also notes that she has had some increased sensitivity in the area of her left forefoot amputation, where sensation had been essentially absent in the past.She takes tramadol for this and for her low back pain. Insomnia is still an issue. She reports the trazodone was helpful for the first couple of weeks, but she has a persistent issue with waking up multiple times at nighttime. She still does find it easier to get to sleep with the trazodone. She stopped taking Jardiance after conversation with her iv therapy nurse, noting risk of lower extremityamputation. Her insurance recently lapsed as her has been out of work. Januvia was too expensive so she stopped taking it. She also has not been using the Dexcom for the same reason. Her max glucose recently has been 175, checking with fingerstick. She follows regularly with podiatry, once every week or every other week, gets dressing changes in the home as well. Her infectious disease specialist has informed her that she thinks she needs a higher amputation because of residual osteomyelitis at the site of amputation, and is working closely with podiatry on this. Data reviewed this visit: problem list/past medical history, current medications, and allergies ROS - See HPI Objective BP 130/80 Physical Exam Constitutional: Appearance: She is well-developed and well-nourished. Musculoskeletal: Comments: GRACIELAE dressed, did not take down Psychiatric: Mood and Affect: Mood and affect normal. Behavior: Behavior normal. * Carrington Calderon MD - 02/21/2024 0945 EDT Case discussed with clinical pharmacist and provider colleagues. For now, will try low dose nortriptyline as this is considered to be safe with low-dose tramadol. Future considerations include the following: - capsaicin cream or patch (Qtenza) - TENS unit - try pregabalin in place of gabapentin - maximize duloxetine (may not be effective for pain below doses of 90 or more) - interventional pain referral documented in this encounter Plan of Treatment Not on file documented as of this encounter Visit Diagnoses Diagnosis Type 2 diabetes mellitus with diabetic polyneuropathy, with long-term current use of insulin (HCC-CMS) ([facility])- Primary Migraine with aura and without status migrainosus, not intractable Migraine with aura, without mention of intractable migraine without mention of status migrainosus Diabetic polyneuropathy associated with type 2 diabetes mellitus ([facility]) Primary insomnia Persistent disorder of initiating or maintaining sleep Does not have health insurance Other specified housing or economic circumstances documented in this encounter Discontinued Medications Medication Sig Discontinue Reason Start Date End Da te traZODone (DESYREL) 50 mg tabletIndications:Primar y insomnia Take 1 Tablet by mouth at bedtime. 11/11/2023 02/21/2024 empagliflozin (JARDIANCE) 25 mg tabletIndications:Type 2 diabetes mellitus with diabetic polyneuropathy, with long-term current use of insulin ([facility]) Take 1 Tablet by mouth daily. 06/27/2023 02/21/2024 documented as of this encounter Care Teams Home Paraprofessional Relationship Specialty Start Date End Date Carrington Calderon MD 1 [facility] [address] [place] [phone] PCP - General Internal Medicine - Primary Care 12/09/20 Carmelo Hendrickson Coordinator 12/01/23 Abigail Díaz Diamond Cleaner 01/04/24 documented as of this encounter
--- OUTSIDE RECORDS SUMMARY | 2024-05-31 00:35 | XMS_ITS | Encounter Summary ---
Author Organization [facility] Address [address] [place] [address] Care Team Providers Care Audit Clerk Name Role Phone Carrington Calderon MD Primary Care Provi anders Carmelo Hendrickson Unavailable Unavailable Abigail Díaz Unavailable [phone] Encounter Details Date Type Department Care Team (Late st Contact Info) Description 04/03/2024 Patient Outreach [facility] Adult Primary Care - [place] [address] [place], [place] [id number] Sivan Krueger RN Social History Tobacco Use [...] Recorded In the past 12 months has [employer], gas, oil, or water [employer] threatened to shut off services in your [...] your living situation today? I have a [facility] place to live 04/03/2024 Think about [...] the past 12 months has th e [employer], gas, oil, or water [employer] threatened to shut off services in your [...] Progress Notes * Sivan Krueger RN - 04/03/2024 1029 EDT [facility] Integrated Care Management Assessment and Care Plan Referral Reason: support with diabetes and engagement in care management diabetic pathway. Pertinent medical and behavioral health issues: Patient is a 39y.o. female with history of type 2 diabetes, migraines, gastroparesis, and tobacco use Has the patient had an inpatient hospitalization or an ED visit within the last year: No If yes, what was the patient's primary diagnosis for their hospitalization or ED visit? n/a Patient Care Team: Carrington Calderon MD as PCP - General (Internal Medicine - Primary Care) Carmelo Hendrickson as Coordinator Abigail Díaz as Automobile Brake Bonder Medications: Current Outpatient Medications: acetaminophen (TYLENOL) 325 mg tablet, Take 2 Tabs by mouth every 4 hours as needed for Pain., Disp: , Rfl: blood glucose meter, Brand: Freestyle Lite, Disp: 1 Each, Rfl: 0 blood glucose test strips, Brand: Freestyle Lite, check glucose 4 times per day for insulin dose titration, Disp: 100 Each, Rfl: 0 Blood-Glucose Sensor (DEXCOM G6 SENSOR) device, Inject 1 Each into the skin every 10 days., Disp: 9Each, Rfl: 4 Blood-Glucose Transmitter (DEXCOM G6 TRANSMITTER) device, Inject 1 Each into the skin every 3 months., Disp: 1 Each, Rfl: 4 DULoxetine 40 mg capsule,delayed release(DR/EC), Take 1 capsule by mouth once daily, Disp: 90 Capsule, Rfl: 3 gabapentin (NEURONTIN) 300 mg capsule, Take 1 [...] at bedtime., Disp: 36 mL, Rfl: 4 lancets, Brand: tydyyle, check glucose 4 times per day for insulin dose titration, Disp: 100 Each, Rfl: 11 lidocaine 5 % (LIDODERM) 5 % patch, [...] of period, Disp: 270 Tablet, Rfl: 3 nortriptyline (PAMELOR) 10 mg capsule, Take 1 Capsule by mouth at bedtime., Disp: 30 Capsule, Rfl: 2 omeprazole (PRILOSEC) 20 mg capsule, Take 1 [...] mg tablet, Take 1 Tablet by mouth daily. (Patient not taking: Reported on 02/21/2024), Disp: 90 Tablet, Rfl: 4 SUMAtriptan (IMITREX) 20 mg/actuation nasal spray, USE 1 SPRAY(S) INTO RIGHT NOSTRIL NEEDED FOR MIGRAINE HEADACHE, Disp: 6 Each, Rfl: 1 traMADol (ULTRAM) 50 mg tablet, Take 1 Tablet by mouth every 6 hours as needed for Pain. Daily Max:200 mg, Disp: 30 Tablet, Rfl: 5 ZOLMitriptan (ZOMIG) 2.5 mg tablet, Take 1 [...] medication list in the chart Living Arrangement: Lives with her , 4 children and mother in law, in a house that they own. Social Supports: family, friends, lots of support Activities requiring assistance: Independent with ADLs Current plan for assistance with ADLs: n/a Need for caregiver resources in order to meet patient's ADL needs: not applicable Hearing/Vision: no hearing or visual limitations identified Cognitive Function: No cognitive impairment identified Health literacy Assessment: patient is able to read/write, appropriate to their developmental age Health Related Social Needs: HRSN screen completed during visit: Yes Food Insecurity: No Food Insecurity (11/15/2023) Hunger Vital Sign Worried About Running Out of Food in the Last Year: Never true Ran Out of Food in the Last Year: Never true Financial Strain: High Risk (11/15/2023) Overall Financial Resource [...] (Non-Medical): No Utilities: Not At Risk (11/15/2023) [facility] Utilities Threatened with loss of utilities: No Depression: Not at risk (06/14/2023) PHQ-2 PHQ-2 Score: 2 Social History Tobacco Use Smoking status: Every Day Current packs/day: 0.50 Average packs/day: 0.5 packs/day for 13.4 years (6.7 ttl pk-yrs) Types: Cigarettes Start date: 11/10/2010 Smokeless tobacco: Never Tobacco comments: 06/13/20 actively trying to quit about 5-8 cigs/day Substance Use Topics Alcohol use: Yes Comment: rarely Healthcare Insurance: Payer/Plan Subscr Sex Relation Sub. Ins. ID Effective Group Num Any gaps or barriers with healthcare insurance coverage: Yes, no insurance at this time. Refer to human resources safety manager. DME: none DME vendor: not applicable Barriers to using technology: none identified Preferred method of communication: Text, Phone Call, and [employer] Message Cultural, spiritual or language factors affecting health: none identified Existing Community Resources: none Gaps in Resources Identified: none identified Advance Directive on File: Yes Prioritized Patient Identified Goals: (needs to include one self-management goal) 1. Patient will work with human resources safety manager to enroll in health insurance within 1 month.. 2. Pt will set an alarm on their phone to check their blood sugar before meals and at bedside, every day for one month Barriers identified to meeting goals: Motivation and Finances or insurance issues Assessment/Clinical Summary and Plan: Stella will benefit from being enrolled in our diabetes pathway.She is motivated to take care of her diabetes, but at the moment she does not have health insuranceso she can't pay for supplies she needs, like a dex com, or other CGM. She said that she feels likeno matter what she does she can't manage her diabetes, and she is glad to have support with this. She is interested in speaking with human resources safety manager and CDE. Patient's access to their plan of care: Patient/family will access electronically through MyChart CM will follow-up in one month SIVAN KRUEGER RN 04/03/2024 10:29 documented in this encounter Plan of Treatment Not on file documented as of this encounter Visit Diagnoses Not on filedocumented in this encounter Care Teams Audit Clerk Relationship Specialty Start Date End Date Carrington Calderon MD 1 [facility] 1 [place] [phone] PCP - General Internal Medicine - Primary Care 12/09/20 Carmelo Hendrickson Coordinator 12/01/23 Abigail Díaz Automobile Brake Bonder 01/04/24 documented as of this encounter
--- OUTSIDE RECORDS SUMMARY | 2024-05-31 00:35 | XMS_ITS | Encounter Summary ---
Author Organization [facility] Address [address] [place] [address] Care Team Providers Care Dye Machine Tender Name Role Phone Carrington Calderon MD Primary Care Provi anders Carmelo Hendrickson Unavailable Unavailable Abigail Díaz Unavailable Reason for Visit * Reason Onset Date Comments Torticollis 02/06/2024 Encounter Details Date Type Department Care Team (Late st Contact Info) Description 02/06/2024 Telephone [facility] Adult Primary Care - [place] [address] [place] [address] Cedric Yoon MD [address] [place] [address] Torticollis Social History Tobacco Use Types Packs/Day Years Used Date Smoking Tobacco: Every Day Cigarettes 0.5 13.6 Started: 11/10/2010 Smokeless Tobacco: Never Comments:06/13/20 actively try ing to quit about 5-8 cigs/day Alcohol Use Standard Drinks/Week Comments Yes 0 (1 standard drink = 0.6 oz pur e alcohol) rarely [facility] Utilities Answer Date Recorded In [...] filedocumented in this encounter Care Teams Dye Machine Tender Relationship Specialty Start Date End Date Carrington Calderon MD 1 [facility] 1 [place] [address] PCP - General Internal Medicine - Primary Care 12/09/20 Carmelo Hendrickson Coordinator 12/01/23 Abigail Díaz Engine Emission Technician 01/04/24 documented as of this encounter
--- OUTSIDE RECORDS SUMMARY | 2024-05-31 00:35 | XMS_ITS | Encounter Summary ---
Author Organization [facility] Address [address] [place] [address] Care Team Providers Care Guidance Consultant Name Role Phone Carrington Calderon MD Primary Care Provi anders Carmelo Hendrickson Unavailable Unavailable Abigail Díaz Unavailable Encounter Details Date Type Department Care Team (Late st Contact Info) Description 04/06/2024 Abstract [facility] Adult Primary Care - [place] [address] [place] [address] Carrington Calderon MD 1 [facility] 1 [place] [address] Social History Tobacco Use Types Packs/Day Years Used Date Smoking Tobacco: Every Day Cigarettes 0.5 13.6 Started: 11/10/2010 Smokeless Tobacco: Never Comments:06/13/20 actively try ing to quit about 5-8 cigs/day Alcohol Use Standard Drinks/Week Comments Yes 0 (1 standard drink = 0.6 oz pur e alcohol) rarely C Utilities Answer Date Recorded In the past 12 months has [employer], gas, oil, or water company threatened to [...] your living situation today? I have a [facility] place to live 04/03/2024 Think about the [...] Comments COMPLETE BLOOD COUNT AND DIFFERENTIAL Routine 03/12/2024 documented in this encounter Results * COMPLETE BLOOD COUNT AND DIFFERENTIAL (03/12/2024) [...] / Unknown 03/12/2024 us Carrington Calderon MD PACKAGES & DNA PROB E ORDERABLES Edited Result - Final [facility] POINT OF CARE documented in this encounter Visit Diagnoses Not on filedocumented in this encounter Care Teams Guidance Consultant Relationship Specialty Start Date End Date Carrington Calderon MD 1 [facility] Level [address] [place] [phone] PCP - General Internal Medicine - Primary Care 12/09/20 Carmelo Hendrickson Coordinator 12/01/23 Abigail Díaz Management Technician 01/04/24 documented as of this encounter
--- OUTSIDE RECORDS SUMMARY | 2024-05-31 00:35 | XMS_ITS | Encounter Summary ---
Author Organization [facility] Address [address] [place] [address] Care Team Providers Care Wood Getter Name Role Phone Carrington Calderon MD Primary Care Provi anders Carmelo Hendrickson Unavailable Unavailable Abigail Díaz Unavailable [phone] Reason for Visit * Reason Onset Date Comments Diabetes 04/05/2024 Diabetes pathway patient Encounter Details Date Type Department Care Team (Late st Contact Info) Description 04/05/2024 Telephone [facility] [address] [place] [address] Macey Farr, RD [address] [address] Diabetes (Diabetes pathway patient) Social History Tobacco Use Types Packs/Day Years Used Date Smoking Tobacco: Every Day Cigarettes 0.5 13.6 Started: 11/10/2010 Smokeless Tobacco: Never Comments:06/13/20 actively try ing to quit about 5-8 cigs/day Alcohol Use Standard Drinks/Week Comments Yes 0 (1 standard drink = 0.6 oz pur e alcohol) rarely [facility] Utilities Answer Date Recorded In the [...] your living situation today? I have a [facility] place to live 04/03/2024 Think about [...] the past 12 months has th e [employer], gas, oil, or water company threatened to [...] encounter Miscellaneous Notes * Telephone Encounter - Macey Farr RD CD - 04/10/2024 1013 EST Appt scheduled for 04/17 via telehealth. * Telephone Encounter - Macey Farr RD CD - 04/05/2024 1105 EDT I've left message with Stella today via voicemail and text to connect re: scheduling an appt to discuss her diabetes. * Telephone Encounter - Macey Farr RD CD - 04/05/2024 1105 EDT ----- Message from Clinical Manager Nohemy sent at 04/03/2024 10:42 EDT ----- HI ! This patient has no health insurance. Carmelo could you call her? Macey, She is interested in talking with CDE and can do telehealth. She lives in [place]. I've enrolled herin the DM pathway, Thank you both! Azul documented in this encounter Plan of Treatment Not on file documented as of this encounter Visit Diagnoses Not on filedocumented in this encounter Care Teams Wood Getter Relationship Specialty Start Date End Date Carrington Calderon MD 1 [facility] 1 [place] [phone] PCP - General Internal Medicine - Primary Care 12/09/20 Carmelo Hendrickson Coordinator 12/01/23 Abigail Díaz Clinical Manager 01/04/24 documented as of this encounter
--- OUTSIDE RECORDS SUMMARY | 2024-05-31 00:35 | XMS_ITS | Encounter Summary ---
Author Organization [facility] Address [facility] [place] [address] Care Team Providers Care Peoplesoft Administrator Name Role Phone Carrington Calderon MD Primary Care Provider [phone] Reason for Referral * Diagnostic Test (Routine) - Pending Review Specialty Diagnoses / Procedures Referred By Kit goode Referred To Contact Radiology Diagnoses Diabetic foot ulcer with osteomyelitis Procedures MRI Foot wwo Contrast Left Jackie Javier MD [facility] [place] [address] Referral ID Status Reason Start Date Expiration Date Visits Requested Visits Authorized [id number] Pending Review Specialty Service Requested 02/03/2024 08/03/2025 1 1 Reason for Visit * Consultation (Urgent) - Closed Specialty Diagnoses / Procedures Referred By Kit goode Referred To Contact Infectious Diseases Diagnoses Osteomyelitis, unspecified Non-pressure chronic ulcer of other part of left foot with fat layer exposed Madelin Ojeda, [facility] [address] [place] [address] [facility] Infectious Dis [address] [place] [phone] Referral ID Status Reason Start Date Expiration Date V isits Requested Visits Authorized [id number] Closed Consult, Test & Treat PCP Updated and/or Approved 01/11/2024 01/10/2025 12 12 Encounter Details Date Type Department Care Team (Latest Contact Info) Description 02/03/2024 10:30 AM EDT Office [place] [address] Jackie Javier MD [facility] [place] [address] Diabetic foot ulcer with osteomyelitis (Primary Dx) [...] L foot since 2019. [facility] her first amputation, after which she says she was treated with of IV antibiotics via PICC line. In 2020, she transitioned her care to a podiatry practice [facility], where she currently follows with Dr. Ojeda. [...] locally, with the final set at our [id number] appointment. Lastly, I emphasized the importance of other measures, including excellent glycemic control. I alsowonder if she would benefit from an arterial Duplex U/S to assess blood flow to that foot and the need for vascular intervention. I spent a total of 70 minutes on the date of service on the [id number] encounter, chart review, clinical decision making, documentation, [...] documented in this encounter Plan of Treatment Scheduled Orders [...] Javier MD CHEMISTRY ORDERABLES [facility] [place] [address] * (ABNORMAL) Comprehensive metabolic panel (02/03/2024 12:38 PM EDT) Glucose 306(H) 65 - 199 mg/dL 02/03/2024 1:43 PM EDT [facility] Comment:Glucose Concentratio n >=200 mg/dL plus symptoms is consistent with Diabetes Mellitus. Blood Urea Nitrogen 9 8 - 18 mg/dL 02/03/2024 1:43 PM EDT [facility] Creatinine 0.56(L) 0.70 - 1.20 mg/dL 02/03/2024 1:43 PM EDT [facility] Sodium 133(L) 135 - 145 mMol/L 02/03/2024 1:43 PM EDT [facility] Potassium 4.4 3.5 - 5.0 mMol/L 02/03/2024 1:43 PM EDT [facility] Chloride 96(L) 98 - 107 mMol/L 02/03/2024 1:43 PM [facility] Carbon Dioxide 25 22 - 31 mMol/L 02/03/2024 1:43 PM [facility] Anion Gap 12 5 - 15 mMol/L 02/03/2024 1:43 PM [facility] Calcium 9.8 8.5 - 10.5 mg/dL 02/03/2024 1:43 PM [facility] Protein, Total 7.5 6.1 - 8.0 g/dL 02/03/2024 1:43 PM [facility] Albumin 4.1 3.2 - 5.2 g/dL 02/03/2024 1:43 PM [facility] Aspartate Aminotransferase 12 <=30 unit/L 02/03/2024 1:43 PM [facility] Alanine Aminotransferase 13 0 - 30 unit/L 02/03/2024 1:43 PM [facility] Alkaline Phosphatase 138(H) 35 - 105 unit/L 02/03/2024 1:43 PM [facility] Bilirubin, Total <0.2 <=1.3 mg/dL 02/03/2024 1:43 PM [facility] Est Glomerular Filtration Rate - Female 120 mL/min/1. 73 m?? 02/03/2024 1:43 PM [facility] Comment: This patient's estimated [...] Foundation Fasting Status No 02/03/2024 1:43 PM [facility] Blood VENOUS BLOOD SPECIMEN / Unknown Venipuncture / Unknown 02/03/2024 12:38 PM EDT 02/03/2024 1:00 PM EDT Jackie Javier MD CHEMISTRY ORDERABLES [facility] [place] [address] * (ABNORMAL) CBC (with Diff) (02/03/2024 12:38 [...] - 12.9 fL 02/03/2024 1:21 PM EDT [facility] RDW Standard Deviation 43.9 37.0 - 46.0 fL 02/03/2024 1:21 PM EDT [facility] RDW coefficient of variation 12.9 11.5 - 14.1 % 02/03/2024 1:21 PM [facility] NRBC% auto 0.0 % 02/03/2024 1:21 PM [facility] NRBC Absolute 0.00 0.00 - 0.00 x10(3)/mc L 02/03/2024 1:21 PM [facility] Neutrophil % 63.6 % 02/03/2024 1:21 PM [facility] Neutrophil Absolute (ANC) - Automated 11.90(H) 1.70 - 6.10 x10(3)/mc L 02/03/2024 1:21 PM [facility] Lymph % 26.2 % 02/03/2024 1:21 PM [facility] Lymph Absolute 4.90(H) 0.90 - 3.20 x10(3)/mc L 02/03/2024 1:21 PM [facility] Monocyte % 7.3 % 02/03/2024 1:21 PM [facility] Monocyte Absolute 1.36(H) 0.30 - 0.90 x10(3)/mc L 02/03/2024 1:21 PM [facility] Eos % 2.0 % 02/03/2024 1:21 PM [facility] Eos Absolute 0.37 0.00 - 0.40 x10(3)/mc L 02/03/2024 1:21 PM [facility] Basophil % 0.5 % 02/03/2024 1:21 PM [facility] Baso Absolute 0.09 0.00 - 0.10 x10(3)/mc L 02/03/2024 1:21 PM [facility] Immature Gran % 0.4 % 1:21 PM [facility] Immature Gran Absolute 0.07(H) 0.00 - 0.04 x10(3)/mc L 02/03/2024 1:21 PM [facility] Blood VENOUS BLOOD SPECIMEN / Unknown Venipuncture / Unknown 02/03/2024 12:38 PM EDT 02/03/2024 1:00 PM EDT Jackie Javier MD HEMATOLOGY ORDERABLE S [facility] [place] [address] documented in this encounter Visit Diagnoses Diagnosis Diabetic foot ulcer with osteomyelitis- Primary Type II or unspecified type diabetes mellitus with other specified manifestations, not stated as uncontrolled documented in this encounter Care Teams Peoplesoft Administrator Relationship Specialty Start Date End Date Carrington Calderon MD 1 [facility] [address] [place] [address] PCP - General Internal Medicine 01/16/24 documented as of this encounter
--- OUTSIDE RECORDS SUMMARY | 2024-05-31 00:35 | XMS_ITS | Encounter Summary ---
Author Organization [facility] Address [address] [place] [address] Care Team Providers Care Turf Sales Person Name Role Phone Carrington Calderon MD Primary Care Provi anders Carmelo Hendrickson Unavailable Unavailable Abigail Díaz Unavailable Encounter Details Date Type Department Care Team (Late st Contact Info) Description 04/06/2024 Abstract [facility] Adult Primary Care - [place] [address] [place] [address] Carrington Calderon MD 1 [facility] 1 [place] [address] Social History Tobacco Use Types Packs/Day Years Used Date Smoking Tobacco: Every Day Cigarettes 0.5 13.6 Started: 11/10/2010 Smokeless Tobacco: Never Comments:06/13/20 actively try ing to quit about 5-8 cigs/day Alcohol Use Standard Drinks/Week Comments Yes 0 (1 standard drink = 0.6 oz pur e alcohol) rarely C Utilities Answer Date Recorded In the past 12 months has [employer], gas, oil, or water company threatened to [...] any time in the past 12 m [facility], were you homeless or living [...] your living situation today? I have a [facility] place to live 04/03/2024 Think about [...] Date of Assessment Author No 10/02/2020 23:50 Rievr Cavanaugh RN * Are you blind or [...] Date/Time Associated Diagnosis Comments HEMOGLOBIN A1C Routine 03/12/2024 documented in this encounter Results * HEMOGLOBIN A1C (03/12/2024) Hemoglobin A1C, External 11.9 % [facility] POINT OF CARE Est Avg Glucose, External 5.7-6.4 mg/dL [facility] POINT [facility] CARE Blood VENOUS BLOOD / Unknown 03/12/2024 Carrington Calderon MD CHEMISTRY & BLOOD G ORDERABLES Final Result [facility] POINT OF CARE documented in this encounter Visit Diagnoses Not on filedocumented in this encounter Care Teams Turf Sales Person Relationship Specialty Start Date End Date Carrington Calderon MD 1 [facility] 1 [place] [address] PCP - General Internal Medicine - Primary Care 12/09/20 Carmelo Hendrickson Coordinator 12/01/23 Abigail Díaz Assembly Line Robot Operator 01/04/24 documented as of this encounter
--- OUTSIDE RECORDS SUMMARY | 2024-05-31 00:35 | XMS_ITS | Encounter Summary ---
Author Organization [facility] Address [address] [place] [address] Care Team Providers Care Trust Officer Name Role Phone Carrington Calderon MD Primary Care Provi anders Carmelo Hendrickson Unavailable Unavailable Abigail Díaz Unavailable Encounter Details Date Type Department Care Team (Late st Contact Info) Description 04/12/2024 Patient Outreach [facility] Adult Primary Care - [place] [address] [place], [place] [id number] Carmelo Hendrickson Social History Tobacco Use Types Packs/Day Years Used Date Smoking Tobacco: Every Day Cigarettes 0.5 13.6 Started: 11/10/2010 Smokeless Tobacco: Never Comments:06/13/20 actively try ing to quit about 5-8 cigs/day Alcohol Use Standard Drinks/Week Comments Yes 0 (1 standard drink = 0.6 oz pur e alcohol) rarely C Utilities Answer Date Recorded In the past 12 months has [employer], gas, oil, or water [employer] threatened to shut off services in your [...] your living situation today? I have a [facility] place to live 04/03/2024 Think about [...] the past 12 months has th e [employer], gas, oil, or water [employer] threatened to shut off services in your [...] encounter Progress Notes * Carmelo Hendrickson - 04/12/2024 1223 EST [facility] Chute Tapper Follow-up Note Encounter type: Telephone Notes: RC called and LVM again for Stella. Plan / Action Items: RC will send outreach letter and check back. RC will follow up in 1 month. Carmelo Hendrickson 04/12/24 12:23 documented in this encounter Plan of Treatment Not on file documented as of this encounter Visit Diagnoses Not on filedocumented in this encounter Care Teams Trust Officer Relationship Specialty Start Date End Date Carrington Calderon MD 1 [facility] [address] [place] [address] PCP - General Internal Medicine - Primary Care 12/09/20 Carmelo Hendrickson Coordinator 12/01/23 Abigail Díaz Hangar Attendant 01/04/24 documented as of this encounter
--- OUTSIDE RECORDS SUMMARY | 2024-05-31 00:35 | XMS_ITS | Encounter Summary ---
Author Organization [facility] Address [address] [place] [address] Care Team Providers Care Trouble Locator Test Desk Name Role Phone Carrington Calderon MD Primary Care Provi anders Carmelo Hendrickson Unavailable Unavailable Abigail Díaz Unavailable [phone] Reason for Referral * Referral (Routine/Next Available) - Authorization Not Required Specialty Diagnoses / Procedures Referred By Contac t Referred To Contact Multidisciplinary Diagnoses Type 2 diabetes mellitus with foot ulcer (CODE) ([facility]) Carrington Calderon MD 1 [facility] 1 [place] [address] Phone: tel: fax: [address], [address] [place] [address] Phone: tel: fax: Referral ID Status Reason Start Date Expiration Date Visits Requested Visits Authorized [id number] Authorization Not Required Specialty Services Required 03/16/20 24 1 1 Question Answer Reason for Request: uncontrolled diabetes Reason for Visit * Reason Onset Date Comments Coordination Of Care 03/16/2024 Encounter Details Date Type Department Care Team (Late st Contact Info) Description 03/16/2024 Telephone [facility] Adult Primary Care [address] [address] Carrington Calderon MD 1 [facility] Level 1 [place] [phone] Coordination Of Care Social History Tobacco Use Types Packs/Day Years Used Date Smoking Tobacco: Every Day Cigarettes 0.5 13.6 Started: 11/10/2010 Smokeless Tobacco: Never Comments:06/13/20 actively try ing to quit about 5-8 cigs/day Alcohol Use Standard Drinks/Week Comments Yes 0 (1 standard drink = 0.6 oz pur e alcohol) rarely [facility] Utilities Answer Date Recorded In the past 12 months has [employer] electric, gas, oil, or water company [...] you? 11/15/2023 How often does anyone, inclnick chivo family, [...] No 10/02/2020 23:50 EDT River Francisco RN * Because of a physical, mental, [...] Answer Entry Date Author No 10/02/2020 23:50 EDT River Francisco RN documented in this encounter Miscellaneous Notes * Telephone Encounter - Carrington Calderon MD - 03/16/2024 0945 EDT I attempted to call Stella today to discuss her outside labs received from [facility], notable for WBC 14 and A1C of 11.9. No answer. Reviewed account in [employer]. No data since September. Care management referral placed last around 1 year ago. Not currently engaged with care management services. Will place referral for care management. Preferably, would like to see her referred to our pharmacist if she is amenable to start getting her numbers under better control, utilize CGM. documented in this encounter Plan of Treatment Scheduled Referrals Name Type Priority Associated Diagnoses Order Schedule AMB CONS/FOLLOW UP OUTPATIENT CARE MANAGEMENT - [facility] Outpatient Referral Routine/Next Available Type 2 diabetes mellitus with foot ulcer (CODE) ([facility]) Expected: 03/23/2024 (Approximate), Expires: 03/16/2025 documented as of this encounter Visit Diagnoses Diagnosis Type 2 diabetes mellitus with foot ulcer (CODE) ([facility])- Primary documented in this encounter Care Teams Trouble Locator Test Desk Relationship Specialty Start Date End Date Carrington Calderon MD 1 [facility] [address] [place] [address] PCP - General Internal Medicine - Primary Care 12/09/20 Carmelo Hendrickson Coordinator 12/01/23 Abigail Díaz Squad Leader 01/04/24 documented as of this encounter
--- OUTSIDE RECORDS SUMMARY | 2024-05-31 00:35 | XMS_ITS | Referral Summary ---
Author Organization [facility] Address [address] [place] [address] Care Team Providers Care Meat Butcher Name Role Phone Carrington Calderon MD Primary Care Provi anders Carmelo Hendrickson Unavailable Unavailable Abigail Díaz Unavailable Encounters Date Type Department Care Team Description 05/13/2024 Refill [facility] Primary [facility] 1 [place], [place] [id number] Carrington Calderon MD Medications Refill 04/19/2024 Patient Outreach [facility] [address] [place] [address] Nohemy Krueger RN 04/12/2024 Patient Outreach [facility] Primary [facility] 1 [place], [place] [phone] Carmelo Hendrickson 04/06/2024 Abstract [facility] Primary [facility] [address] [place], [place] [address] Carrington Calderon MD 04/06/2024 Abstract [facility] Primary [facility] 1 [place], [place] [address] Carrington Calderon MD 04/06/2024 Abstract [facility] Primary [facility] [address] [place], [place] [address] Carrington Calderon MD 04/06/2024 Abstract [facility] Primary [facility] 1 [place] [address] Carrington Calderon MD 04/05/2024 Telephone [facility] Family Medicine - [facility] [address] [place] [address] CD Diabetes (Diabetes pathway patient) 04/03/2024 Patient Outreach [facility] Primary [facility] 1 [place] [address] Carmelo Hendrickson 04/03/2024 Patient Outreach [facility] Primary [facility] 1 [place] [address] Nohemy Krueger RN 03/22/2024 Patient Outreach [facility] 1 [place] [address] Nohemy Krueger RN 03/16/2024 Telephone [facility] Primary [facility] [address] [place] [address] Carrington Calderon MD Coordination Of Care from Last 3 Months Allergies Active Allergy [...] hours as needed for Nausea. 6 Suppository Active prochlorperazine (COMPAZINE) 10 mg tabletIndications :Cyclic vomiting syndrome Take 1 Tablet by mouth every 8 hours as needed for Nausea. 8 Tablet Active ZOLMitriptan (ZOMIG) 2.5 mg tabletIndications :Catamenial disorder,Migraine with aura and without status migrainosus, not intractable,Cycli c vomiting syndrome Take 1 Tablet by mouth 2 times daily. BID starting 2 days prior to onset of menses, continuing for a total of 5 days (10 doses) 10 Tablet Active Blood-Glucose Sensor (Routehappy G6 SENSOR) deviceIndications :Type 2 diabetes mellitus with diabetic polyneuropathy, with long-term current use of insulin ([facility]) Inject 1 Each into the skin every 10 days. 9 Each Active ondansetron (ZOFRAN-ODT) 4 mg disintegrating tabletIndications :Cyclic vomiting syndrome Take 1 Tablet by mouth every 8 hours as needed for Nausea. 30 Tablet Active insulin glargine (LANTUS SOLOSTAR/SEMGLEE) 100 unit/mL (3 mL) injection penIndications:Ty pe 2 diabetes mellitus with diabetic polyneuropathy, with long-term current use of insulin ([facility]) Inject 44 Units into the skin at bedtime. 36 mL Active SITagliptin phosphate (JANUVIA) 100 mg tabletIndications :Type 2 diabetes mellitus with diabetic polyneuropathy, with long-term current use of insulin ([facility]) Take 1 Tablet by mouth daily. 90 Tablet Active Additional Information Patient not taking.Reported on 02/21/2024 metoclopramide HCl (REGLAN) 10 mg tablet Take 1 Tablet by mouth 3 times daily before meals. Starting 3 days before menses and stopping after end of period 270 Tablet Active gabapentin (NEURONTIN) 300 mg capsuleIndication s:Diabetic polyneuropathy associated with type 2 diabetes mellitus ([facility]) Take 1 Capsule by mouth every morning AND 4 Capsules at bedtime. 450 Capsule Active SUMAtriptan (IMITREX) 20 mg/actuation nasal spray USE 1 SPRAY(S) INTO RIGHT NOSTRIL NEEDED FOR MIGRAINE HEADACHE 6 Each 1 024 Active Blood-Glucose Transmitter (DEXCOM G6 TRANSMITTER) deviceIndications :Type 2 diabetes mellitus with diabetic polyneuropathy, with long-term current use of insulin ([facility]) Inject 1 Each into the skin every 3 months. 1 Each 4 024 Active HUMALOG KWIKPEN INSULIN 100 unit/mL injectable penIndications:Ty pe 2 diabetes mellitus with diabetic polyneuropathy, with long-term current use of insulin ([facility]) 8 units with breakfast, 15 units with lunch/dinner 30 mL 11 024 Active LORazepam (ATIVAN) 0.5 mg tabletIndications :Anxiety [...] polyneuropathy, with long-term current use of insulin ([facility]) Brand: Freestyle Lite 1 Each 024 Active blood glucose test stripsIndications :Type 2 diabetes mellitus with diabetic polyneuropathy, with long-term current use of insulin ([facility]) Brand: Freestyle Lite, check glucose 4 times per day for insulin dose titration 100 Each 024 Active lancetsIndication s:Type 2 diabetes mellitus with diabetic polyneuropathy, with long-term current use of insulin ([facility]) Brand: Freestyle, check glucose 4 times per day for insulin dose titration 100 Each 11 024 Active DULoxetine 40 mg capsule,delayed release(DR/EC)Ind ications:Anxiety and depression Take 1 capsule by mouth once daily 90 Capsule 3 024 Active nortriptyline (PAMELOR) 10 mg capsuleIndication s:Diabetic polyneuropathy associated with type 2 diabetes mellitus ([facility]),Primary insomnia Take 1 capsule by mouth at bedtime 30 Capsule 024 Active nortriptyline (PAMELOR) 10 mg capsuleIndication [...] 06/19 Patient has given permission for [facility] to verbally discuss the following [...] Confirmed patient has Traditional Medicaid now. TCN: [id number] Category: P2 Garfield Healy 06/10/2020 19:11 Problem Noted Date Diagnosed Date Tobacco use 12/21/2021 Skin infection 12/21/2021 Pannus, abdominal 12/21/2021 Overview (04/01/2022): - as of 01/2022, does not meet criteria for surgical intervention (see 01/29/22 note) Neuropathic diabetic ulcer of foot (HCC-CMS) Cyclic vomiting syndrome 08/10/2020 Overview (06/11/2021): - [...] polyneuropathy, with long-term current use of insulin ([facility]) 06/05/2020 Overview (11/17/2022): - Dx approx age [...] approx 2012 - had SI, treated at [facility]. Marijuana prn to help with stress/anxiety sx -Describes paradoxical effect of citalopram, reportedly resulting in the above admission at [facility] Migraine with aura and witho ut status [...] (06/27/2020): Added automatically from request for surgery [id number] of unknown anatomic location 06/20/2020 06/27/2020 Overview (06/27/2020): Clinical Group: [facility] Patient HPI: Cristy Luo is an 35 y.o. , patient with history of ectopic and positive HCG during post operative period for unrelated procedure. Reported cramping to [facility] nurse on 06/19. LMP: End of the first week of May Rh status: B- Rhogam: Given by [facility] 06/20/20 Desired : Unknown Ectopic [...] 06/20/2020: US today and given RhoGham by [facility]. Place in [place] per MD [...] & contact #'s give to Stella. Suyapa, RN 06/23/20: ED today for VB, U/S essentially the same, Plan per Azucena Mederos & Chantale: repeat HCG 06/25 & U/S 06/25 in [facility] clinic. MARCELO Dale 06/25/20: U/S results - [...] (06/05/2020): Added automatically from request for surgery [id number] Type 2 diabetes mellitus wit h left diabetic foot ulcer ([facility]) 05/03/2020 03/27/2021 Osteomyelitis of great toe o f left foot ([facility]) 03/12/2020 06/11/2021 Diabetic foot ulcer associat ed with diabetes mellitus due to underlying condition ([facility]) 03/07/2020 03/27/2021 Diabetic foot infection ([facility]) 03/06/2020 06/11/2021 Diabetic foot ulcer ([facility]) 03/06/2020 06/11/2021 Cellulitis of great toe of left foot 11/26/2019 06/11/2021 Encounter for sterilization 11/20/2019 06/20/2020 Overview (11/20/2019): Added automatically from request for surgery [id number] Missed 10/12/2019 10/15/2019 Overview (10/15/2019): Clinical Group: [...] she will call for talk Appt.. Suyapa, MARCELO with type 2 diabet es mellitus in [...] PCR results found No results found for: [id number] HgA1c [ ] 1T pending [ ] [...] & Plan (10/01/2019 16:50 EDT): - Reviewed M group practice and clinic flow. - labs ordered today. - Desires cell free DNA, prior auth submitted today. Undecided on CF/SMA testing. - Patient reports normal Paps but unclear when last performed, will likely need at next visit. Ectopic 10/25/2018 10/12/2019 Overview (12/25/2018): Clinical Group: [facility] (eg. CO[facility], ED patient, U[facility], [...] Beta HCG = 1652.8 mIU/ml @ [facility] 11/10/2018: Quant Beta HCG, Preg 1,117 mIU/ml* (Ref range: <5 mIU/ml) 11/21/18: Quant Beta HCG 299.98 mIU/mL at [facility] (ref range <2.39) 12/03/18: Quant Beta HCG, 41.94 mIU/ml at [facility] 12/13/18: Quant Beta HCG, 13.63 mIU/ml at [facility] Plan: 10/24/18: per Dr. Coronado repeat [...] go to lab 11/08. States will go 11/09/18.[facility] 11/10/18: Plan per Dr. Almeida, repeat HCG in 1 week (11/17). Results & plan reviewed with Cristy. MARCELO Dale 11/21/18 Pt plans on going to [facility] today. [facility] 11/21/18. CG 299.98. Repeat in 1 week. Pt would like to go 11/27/18([facility]) as off from work [employer] 12/01/18: [...] with plan. MARCELO Dale 12/25/18: Per [facility] lab last HCG was 12/13, NOS for 12/20, LVM X3, letter sent, will remove from Beta Book.MARCELO Dale Spontaneous miscarriage 09/04/201510/05 Overview (09/04/2015): 02/18, 08/19. Followed by Dr. López[facility] in OBGYN Type 2 diabetes mellitus ([facility]) 09/03/2015 06/11/2021 Overview (06/11/2021): - [...] has e electric, gas, oil, or water [employer] threatened to shut off services in your [...] your living situation today? I have a [facility] place to live 04/03/2024 Think about [...] Index 36.43 06/27/2023 1431 EST Functional Status * Are you deaf or [...] Author No 10/02/2020 23:50 River Cavanaugh RN Mental Status * Because of a physical, mental, or emotional condition, do you have serious difficulty concentrating, remembering, or making decisions? (5 years old or older) Answer Entry Date Author No 10/02/2020 23:50 River Cavanaugh RN Plan of Treatment Not on file Procedures Procedure Name Priority Date/Time Associated Diagnosis [...] complication, unspecified whether senior living insulin use ([facility]) URINE [id number]-QI-[id number] RATIO (ACR) Routine 11/28/2019 15:56 EDT Type 2 diabetes mellitus with other specified complication, unspecified whether senior living insulin use ([facility]) from Last 3 Months [...] PROB E ORDERABLES Edited Result - Final [facility] POINT OF CARE * C REACTIVE PROTEIN (03/12/2024) C-Reactive Protein, External 0.57 [facility] POINT OF CARE Blood VENOUS BLOOD / Unknown 03/12/2024 Carrington Calderon MD CHEMISTRY & BLOOD G ORDERABLES Final Result [facility] POINT OF CARE * HEMOGLOBIN A1C (03/12/2024) Hemoglobin A1C, External 11.9 % [facility] POINT OF CARE Est Avg Glucose, External 5.7-6.4 mg/dL [facility] POINT OF CARE Blood VENOUS BLOOD / Unknown 03/12/2024 Carrington Calderon MD CHEMISTRY & BLOOD G ORDERABLES Final Result [facility] POINT OF CARE * HEPATITIS C AB W REFLEX TO HCV RNA BY PCR (11/11/2023 13:53 EDT) Hep C Antibody Negative Negative 11/11/2023 17:03 EDT [facility] Blood VENOUS BLOOD / Unknown Venipuncture / Unknown 11/11/2023 13:53 EDT 11/11/2023 13:55 EDT Carrington Calderon MD CHEMISTRY & BLOOD G ORDERABLES Final Result Performing Organization Address [facility] de Phone Number [facility] [address] [place] [address] * HIV 1/2 ANTIGEN AND ANTIBODY, 4TH GENERATION (11/11/2023 13:53 EDT) HIV 1 and 2 Antibody/p24 Antigen, 4th Generation Negative Negative 11/11/2023 17:04 EDT [facility] Comment:If acute HIV-1 infec tion is suspected in a high risk patient, submit plasma specimen for HIV-1 RNA quantitation test. Blood VENOUS BLOOD / Unknown Venipuncture / Unknown 11/11/2023 13:53 EDT 11/11/2023 13:55 EDT Narrative [facility] - 11/11/2023 17:04 EDT Fourth Generation assay performed on the Siemens PrestaShopaur XPT. Carrington Calderon MD IMMUNOLOGY AND SERO LOGY ORDERABLES Final Result Performing Organization Address [facility] Co de Phone Number [facility] [address] [place] [phone] * PAP TEST (06/27/2023 16:00 EST) Specimens A. Cervix and/or Endocervix , ThinPrep Imaging System with Manual Evaluation 07/13/2023 16:25 EST [facility] Specimen Adequacy Satisfactory for Evaluation - transformation zone component absent 07/13/2023 16:25 EST [facility] General Categorization Negative for intraepithelial lesion or malignancy 07/13/2023 16:25 EST [facility] Attestation . 07/13/2023 16:25 [facility] at 1625 Clinical History screening 07/13/19 16:25 [facility] HPV The result for the Human Papillomavirus (HPV) Detection-High Risk Types is Negative. No E6 or E7 mRNA is detected from HPV types 16,18,31,33,35,39 ,45,51,52,56,58,5 9,66, and 68 by mortgage collector mediated amplification.Lorena ting was performed on specimen [id number] and was resulted on 07/13/2023 1625 EST by JANET, LAB INSTRUMENT RESULTS IN 07/13/2023 16:25 [facility] Performing Lab [facility] 07/13/2023 16:25 [facility] Scanned Images 07/13/2023 16:25 [facility] Pap Test CERVIX UTERI STRUCTURE / Unknown 06/27/2023 16:00 EST 06/27/2023 16:00 EST us Carrington Calderon MD PATHOLOGY ORDERABLE S Final Result Performing Organization Address City/State/[facility] Co de Phone Number [facility] [address] [place] [address] * (ABNORMAL) ALBUMIN, URINE (11/28/2019 15:56 EDT) Albumin, Urine 11.3 See Note mg/dL 2019 16:47 [facility] Comment: NOTE: Reference range not established Creatinine, Urine 143.1 See Note mg/dL 11/28/2019 16:47 [facility] Comment: NOTE: Reference range not established Lab Urine Albumin to Creatinine Ratio 79(H) <30 ug/mg Creatinine 11/28/2019 16:47 [facility] Comment: Urine Albumin/Creatinine Ratio: Normal: <30 ug/mg Creatinine Moderately increased albuminuria: 30-300 ug/mg Creatinine Severley increased albuminuria: >300 ug/mg Creatinine Urine URINE SPECIMEN OBTAINED BY CLEAN CATCH PROCEDURE / Unknown Urine Collect / Unknown 11/28/2019 15:56 EDT 11/28/2019 15:56 EDT us Tonja Alejandro PA-C CHEMISTRY & BLOOD GA S ORDERABLES Final Result [facility] [address] [place] [address] * LIPID PROFILE (INCLUDES CHOLESTEROL, TRIGLYCERIDES, HDL, LDL) (11/28/2019 15:56 EDT) Cholesterol 179 See Note mg/dL 11/28/2019 17:12 [facility] Comment: Acceptable: ?<200 mg/dL Borderline High: 200-239 mg/dL High: ?> or = 240 mg/dL HDL 38 See Note mg/dL 11/28/2019 17:12 [facility] Comment: Low: ? <40 mg/dL Normal: ??40-60 mg/dL High: ?>60 mg/dL LDL, Calculated 61 See Note mg/dL 11/28/2019 17:12 [facility] Comment: Optimal: ? <100 mg/dL Near Optimal: ?100-129 mg/dL Borderline High: 130-159 mg/dL High: ?160-189 mg/dL Very High: ? > or = 190 mg/dL Triglyceride 398 See Note mg/dL 11/28/2019 17:12 [facility] Comment: Normal: ? <150 mg/dL Borderline High: ??150 - 199 mg/dL High: ? 200 - 499 mg/dL Very High: ?> or = 500 mg/dL Chol/HDL Ratio 4.7 See Note 11/28/2019 17:12 [facility] Comment: No reference range has been established for CHOL/HDL ratio. Non HDL Cholesterol 141 See Note mg/dL 11/28/2019 17:12 [facility] Comment: Desirable: ?<130 mg/dL Borderline High: ??130-159 mg/dL High: ? 160-189 mg/dL Very High: ?> or = 190 mg/dL Blood VENOUS BLOOD / Unknown Venipuncture / Unknown 11/28/2019 15:56 EDT 11/28/2019 15:56 EDT us Tonja Alejandro PA-C CHEMISTRY & BLOOD GA S ORDERABLES Final Result [facility] [address] [place] [address] from Last 3 Months or Most Recently Relevant to Health Maintenance Administered Medications Advance Directives For more information, please contact: [phone] Documents on File Type Date Recorded Patient Public Policy Mediator Expl anation Advance Directive 11/23/2022 10:36 Appt [...] participated in the discussion? Patient Care Teams Meat Butcher Relationship Specialty Start Date End Date Carrington Calderon MD 1 [facility] [address] [place] [address] PCP - General Internal Medicine - Primary Care 12/09/20 Carmelo Hendrickson Coordinator 12/01/23 Abigail Díaz Belt Dresser 01/04/24
--- OUTSIDE RECORDS SUMMARY | 2024-05-31 00:36 | XMS_ITS | Encounter Summary ---
Author Organization [facility] Address [address] [place] [address] Care Team Providers Care Food Products Sales Representative Name Role Phone Carrington Calderon MD Primary Care Provi anders Carmelo Hendrickson Unavailable Unavailable Abigail Díaz Unavailable Encounter Details Date Type Department Care Team (Late st Contact Info) Description 01/06/2024 Lab Requisition [facility] Pathology & Laboratory Medicine - [facility] [address] [place] [address] Outr Resulting Lab, Provider Social History Tobacco Use Types Packs/Day Years Used Date Smoking Tobacco: Never Assessed [facility] Utilities Answer Date Recorded In the past 12 months has [employer], gas, oil, or water company threatened to [...] Answer Entry Date Author No 10/02/2020 23:50 Rivre Cavanaugh RN documented in this encounter Plan of Treatment Not on file documented as of this encounter Procedures Procedure Name Priority Date/Time Associated Diagnosis Comments OSMOLALITY Routine 01/06/2024 11:15 EDT documented in this encounter Results * (ABNORMAL) OSMOLALITY (01/06/2024 11:15 EDT) Osmolality, Serum 308(H) 275 - 295 mOsm/kg 01/06/2024 17:33 EDT [facility] Blood VENOUS BLOOD / Unknown 01/06/2024 11:15 EDT 01/06/2024 17:04 EDT us Provider Outr Resulting Lab CHEMISTRY & BLOOD GA S ORDERABLES Final Result [facility] [address] [place] [address] documented in this encounter Visit Diagnoses Not on filedocumented in this encounter Care Teams Food Products Sales Representative Relationship Specialty Start Date End Date Carrington Calderon MD 1 [facility] Level [address] [place] [address] PCP - General Internal Medicine - Primary Care 12/09/20 Carmelo Hendrickson Coordinator 12/01/23 Abigail Díaz Broker In Charge 01/04/24 documented as of this encounter
--- OUTSIDE RECORDS SUMMARY | 2024-05-31 00:36 | XMS_ITS | Encounter Summary ---
Author Organization [facility] Address [address] [place] [address] Care Team Providers Care Installer Molding And Trim Name Role Phone Carrington Calderon MD Primary Care Provi anders Abigail Díaz Unavailable [phone] Carmelo Hendrickson Unavailable Unavailable Abigail Díaz Unavailable Reason for Visit * Reason Onset Date Comments Medications Refill 12/20/2023 Encounter Details Date Type Department Care Team (Late st Contact Info) Description 12/20/2023 Refill [facility] Adult Primary Care - [address] [phone] Carrington Calderon MD 1 [facility] Level 1 [place] [phone] Medications Refill Social History Tobacco Use Types Packs/Day Years Used Date Smoking Tobacco: Every Day Cigarettes 0.5 13.6 Started: 11/10/2010 Smokeless Tobacco: Never Comments:06/13/20 actively try ing to quit about 5-8 cigs/day Alcohol Use Standard Drinks/Week Comments Yes 0 (1 standard drink = 0.6 oz pur e alcohol) rarely [facility] Utilities Answer Date Recorded [...] the past [address] [facility], were you homeless or living [...] your living situation today? I have a [facility] place to live 04/03/2024 Think about [...] Refills Last Filled Start Date End Date traMADol (ULTRAM) 50 mg tabletIndications:C hronic midline low back pain without sciatica Take 1 Tablet by mouth every 6 hours as needed for Pain. Daily Max: 200 mg 30 Tablet 5 12/20/2023 LORazepam (ATIVAN) 0.5 mg tabletIndications:A nxiety Take 1 Tablet by mouth daily as needed for Anxiety. Daily Max: 0.5 mg 30 Tablet 3 12/20/2023 documented in this encounter Miscellaneous Notes * Telephone Encounter - Berenice Mahan - 12/20/2023 2495 EDT Medication(s) Requested/ Last Ordered: Tramadol/ 06.27.23 Lorazepam/ 06.27.23 Preferred Pharmacy: [facility] [id number] [facility], [place] - [address] [place] [address] Is patient out of medication? Yes Last [...] documented as of this encounter Care Teams Installer Molding And Trim Relationship Specialty Start Date End Date Carrington Calderon MD 1 [facility] 1 [place] [phone] PCP - General Internal Medicine - Primary Care 12/09/20 Abigail Díaz Aircraft Avionics Technician 04/21/23 01/03/24 Carmelo Hendrickson Coordinator 12/01/23 Abigail Díaz Aircraft Avionics Technician 01/04/24 documented as of this encounter
--- OUTSIDE RECORDS SUMMARY | 2024-05-31 00:36 | XMS_ITS | Encounter Summary ---
Author Organization [facility] Address [address] [place] [address] Care Team Providers Care Roof Designer Name Role Phone Carrington Calderon MD Primary Care Provi anders BreAbigail Unavailable [phone] Reason for Referral * Consult (Routine/Next Available) - Closed Specialty Diagnoses / Procedures Referred By Kit goode Referred To Contact Sleep Medicine Diagnoses Primary insomnia Carrington Calderon MD [address] [place] [phone] Phone: tel: fax: [facility] - [address] [address] Phone: tel: fax: Referral ID Status Reason Start Date Expiration Date V isits Requested Visits Authorized [id number] Closed Specialty Services Required 11/11/2023 1 1 Question Answer Reason for referral Diffifulty initiating sleep Patient Type: Adult Comments Schedule via phone, no mychart * Referral (Routine/Next Available) - Specialty Report Received Specialty Diagnoses / Procedures Referred By Kit goode Referred To Contact Multidisciplinary Diagnoses Type 2 diabetes mellitus with diabetic polyneuropathy, with long-term current use of insulin ([facility]) Cyclic vomiting syndrome Carrington Calderon MD [address] [place] [phone] Phone: tel: fax: [facility] [address] [facility], [address] [place] [address] Phone: tel: fax: Referral ID Status Reason Start Date Expiration Date Visits Requested Visits Authorized [id number] Specialty Report Received Specialty Services Required 11/11/2023 1 1 Question Answer Reason for Request: disability paperwork * Referral (Routine/Next Available) - Closed Specialty Diagnoses / Procedures Referred By Kit goode Referred To Contact Neurology Diagnoses Migraine with aura and without status migrainosus, not intractable Cyclic vomiting syndrome Carrington Calderon MD [address] [place] [address] 1 [place] [address] Phone: tel: fax: Kierra Almeida, 1 [facility], Level 2 [place] [address] Phone: tel: fax: Referral ID Status Reason Start Date Expiration Date V isits Requested Visits Authorized [id number] Closed Specialty Services Required 11/11/2023 1 1 Question Answer Reason for Request: cyclic vomiting and migraine Context of referral: Established Problem Reason for referral: Unsure Is headache attributable to an underlying condition? No Is patient actively missing work or school due to headache? Yes Is patient or lactating? No Has patient had a previous OUTSIDE of [facility] neurology evaluation, neuroimaging (MRI or CT of brain or spine) or electrodiagnostic testing (EMG, NCS, EEG)? No Reason for Visit * Reason Comments Follow-up Foot Pain Encounter Details Date Type Department Care Team (Late st Contact Info) Description 11/11/2023 13:00 EDT Office Visit [facility] [place] [address] Carrington Calderon MD 1 [facility] Level 1 [place] [phone] Type 2 diabetes mellitus with diabetic polyneuropathy, with long-term current use of insulin (HCC-CMS) ([facility]) (Primary Dx); Migraine with aura and without [...] Used Date Smoking Tobacco: Former Cigarettes 0.5 13.6 S tarted: 11/10/2010 Smokeless Tobacco: Never Tobacco [...] a care home (including now)? No 06/14/2023 Interpersonal Safety Answer Date Record ed How often does anyone, inclnick waldron family, hit, punch or physically hurt you? 06/14/2023 How often does anyone, audrey waldron family, insult, scream, curse or threaten to hurt you? 06/14/2023 Comments No Sex and Gender Information Value [...] Refills Last Filled Start Date End Date HUMALOG KWIKPEN INSULIN 100 unit/mL injectable penIndications:Typ e 2 diabetes mellitus with diabetic polyneuropathy, with long-term current use of insulin ([facility]) 8 units with breakfast, 15 units with lunch/dinner 30 mL 11 11/11/2023 traZODone (DESYREL) 50 mg tabletIndications: Primary insomnia Take 1 Tablet by mouth at bedtime. 30 Tablet 4 11/11/2023 02/21/2024 documented in this encounter Progress Notes * Carrington Calderon MD - 11/11/2023 1300 EDT Images from the original note were not included. Primary Care Office Visit Assessment & Plan 1. Type 2 diabetes mellitus with diabetic polyneuropathy, with long-term current use of insulin ([facility]) ([facility]) Reviewed CGM data in detail. GMI reflects [...] CHOLESTEROL, TRIGLYCERIDES, HDL, LDL); Future - URINE KIMYJUS-DN-WHBTOYEASM RATIO (ACR); Future 2. Migraine with aura [...] 2 diabetes mellitus, limited to breakdown ofskin ([facility]) Continue care with her telephone coin box collector. We did not examine the foot today, [...] that she has continued to see her telephone coin box collector in [place] every couple of weeks. She has a persistent foot ulcer on the bottom of her left foot at around the level of the first metatarsal head. She expresses frustration around the fact that this has not healed. She has beentold by her telephone coin box collector that it would be hard or impossible [...] Type Priority Associated Diagnoses Orde r Schedule THYROID-STIMULATING IMMUNOGLOBULIN (TSI), SERUM Lab Routine Subclinical hyperthyroidism Expected: 11/11/2023 (Approximate), Expires: 11/10/2024 Scheduled Referrals Name Type Priority Associated Diagnoses Order Schedule AMB CONS/FOLLOW UP [facility] Outpatient Referral Routine/Next Available Migraine with aura and without status migrainosus, not intractable Cyclic vomiting syndrome Expected: 12/11/2023 (Approximate), Expires: 11/10/2024 AMB CONS/FOLLOW UP OUTPATIENT CARE MANAGEMENT - [facility] Outpatient Referral Routine/Next Available Type 2 diabetes mellitus with diabetic polyneuropathy, with long-term current use of insulin ([facility]) (HCC) Cyclic vomiting syndrome Expected: 11/18/2023 (Approximate), Expires: 11/10/2024 BEHAVIORAL SLEEP MEDICINE CONSULTATION Outpatient Referral Routine/Next Available Primary insomnia Expected: 12/11/2023 (Approximate), Expires: 11/10/2024 documented as of this encounter Results * HIV 1/2 ANTIGEN AND ANTIBODY, 4TH GENERATION (11/11/2023 13:53 EDT) HIV 1 and 2 Antibody/p24 Antigen, 4th Generation Negative Negative 11/11/2023 17:04 EDT [facility] Comment:If acute HIV-1 infec tion is suspected in a high risk patient, submit plasma specimen for HIV-1 RNA quantitation test. Blood VENOUS BLOOD / Unknown Venipuncture / Unknown 11/11/2023 13:53 EDT 11/11/2023 13:55 EDT Narrative [facility] - 11/11/2023 17:04 EDT Fourth Generation assay performed on the [employer] XPT. us Carrington Calderon MD IMMUNOLOGY AND SERO LOGY ORDERABLES Final Result [facility] [address] [place] [phone] * HEPATITIS C AB W REFLEX TO HCV RNA BY PCR (11/11/2023 13:53 EDT) Pathologist [facility] Hep C Antibody Negative Negative 11/11/2023 17:03 EDT [facility] Blood VENOUS BLOOD / Unknown Venipuncture / Unknown 11/11/2023 13:53 EDT 11/11/2023 13:55 EDT Carrington Calderon MD CHEMISTRY & BLOOD G ORDERABLES Final Result [facility] [address] [place] [phone] * HEPATITIS B PROFILE (11/11/2023 13:53 EDT) Hep B Surface Ag Negative Negative 11/11/19 17:04 EDT [facility] Hep B Surface Ab, Quantitative <3.1 See Note mIU/mL 11/11/2023 17:04 EDT [facility] Comment: Reference Range for Hep B Surface Ab, Quant: Positive: >= 10.0 mIU/mL Negative: ??< 10.0 mIU/mL Patient is presumed to not be immune to infection with Hepatitis B Virus. Hep B Surface Ab, Qualitative Negative See Note 11/11/2023 17:04 EDT [facility] Comment: Reference Range for Hep B Surface Ab, Qual: Unvaccinated: ??Negative Vaccinated: ??Positive Hepatitis B Core Ab, Total Negative Negative 11/11/2023 17:04 EDT [facility] Blood VENOUS BLOOD / Unknown Venipuncture / Unknown 11/11/2023 13:53 EDT 11/11/2023 13:55 EDT Carrington Calderon MD CHEMISTRY & BLOOD G ORDERABLES Final Result Performing Organization Address [facility] Co de Phone Number [facility] [address] [place] [address] * (ABNORMAL) THYROID CASCADE (11/11/2023 13:53 EDT) TSH 0.37(L) 0.47 - 4.68 mIU/L 11/11/2023 15:38 EDT [facility] Blood VENOUS BLOOD / Unknown Venipuncture / Unknown 11/11/2023 13:53 EDT 11/11/2023 13:55 EDT Narrative [facility] - 11/11/2023 15:38 EDT NOTE: The results of this assay can be falsely lowered due to the consumption of Biotin. Carrington Calderon MD CHEMISTRY & BLOOD G ORDERABLES Final Result Performing Organization Address [facility]/ZIP Co de Phone Number [facility] [address] [place] [address] documented in this encounter Visit Diagnoses Diagnosis Type 2 diabetes mellitus with diabetic polyneuropathy, with long-term current use of insulin (HCC-CMS) (HCC)- Primary Migraine with aura and without status migrainosus, not intractable Migraine with aura, without mention of intractable migraine without mention of status migrainosus Anxiety and depression Dysthymic disorder Cyclic vomiting syndrome Persistent vomiting Diabetic ulcer of left midfoot associated with type 2 diabetes mellitus, limited to breakdown of skin (HCC-CMS) Primary insomnia Persistent disorder of initiating [...] current use of insulin ([facility]) 8 units with breakfast, 12 units with lunch/dinner 06/27/2023 11/11/2023 documented as of this encounter Care Teams Roof Designer Relationship Specialty Start Date End Date Carrington Calderon MD 1 [facility] Level 1 [place] [address] PCP - General Internal Medicine - Primary Care 12/09/20 Abigail Díaz Videotape Sales Representative 04/21/23 01/03/24 documented as of this encounter
--- OUTSIDE RECORDS SUMMARY | 2024-05-31 00:36 | XMS_ITS | Encounter Summary ---
Author Organization [facility] Address [address] [place] [address] Care Team Providers Care Medical Office Professional Instructor Name Role Phone Carrington Calderon MD Primary Care Provi anders Abigail Díaz Unavailable Reason for Visit * Reason Comments Coordination Of Care Encounter Details Date Type Department Care Team (Late st Contact Info) Description 11/18/2023 Community Health Team [facility] Adult Primary Care - [address] [phone] Care Management, [facility] Social History Tobacco Use Types Packs/Day Years Used Date Smoking Tobacco: Every Day Cigarettes 0.5 13.6 Started: 11/10/2010 Smokeless Tobacco: Never Comments:06/13/20 actively try ing to quit about 5-8 cigs/day Alcohol Use Standard Drinks/Week Comments Yes 0 (1 standard drink = 0.6 oz pur e alcohol) rarely C Utilities Answer Date Recorded In the past 12 months has [employer], gas, oil, or water [employer] threatened to shut off services in your [...] documented in this encounter Progress Notes * Nery Stokes - 11/18/2023 0945 EDT [facility] Inter Fold Roll Cutter Date: 11/18/23 Referred by: Abigail Williamson PCP: Carrington Calderon Encounter type: Phone Reason for Referral: 3 Squares, Financial Notes: This Inter Fold Roll Cutter called Stella at scheduled date/time and left a voicemail offering to reschedule with direct contact information. Plan / Action Items: This Inter Fold Roll Cutter sent a MyChart message offering to reschedule. Pending reply from Stella. If no response by November 29, this Inter Fold Roll Cutter will place a call toLiz informing if no reply by 12/16/23, the referral will be closed. Assistance is available with a new referral if the referral is closed. Nery Stokes 11/18/23 9:45 documented in this encounter Plan of Treatment Not on file documented as of this encounter Visit Diagnoses Not on filedocumented in this encounter Care Teams Medical Office Professional Instructor Relationship Specialty Start Date End Date Carrington Calderon MD 1 [facility] Level 1 [place] [address] PCP - General Internal Medicine - Primary Care 12/09/20 Abigail Díaz City Mail Carrier 04/21/23 01/03/24 documented as of this encounter
--- OUTSIDE RECORDS SUMMARY | 2024-05-31 00:36 | XMS_ITS | Encounter Summary ---
Author Organization [facility] Address [address] [place] [address] Care Team Providers Care Quarter Folder Name Role Phone Carrington Calderon MD Primary Care Provi anders Amrita Asencio Unavailable Carmelo Hendrickson Unavailable Unavailable Amrita Asencio Unavailable Encounter Details Date Type Department Care Team (Late st Contact Info) Description 12/29/2023 Patient Outreach [facility] Adult Primary Care - [address] [phone] Amrita Asencio Social History Tobacco Use Types Packs/Day Years Used Date Smoking Tobacco: Every Day Cigarettes 0.5 13.6 Started: 11/10/2010 Smokeless Tobacco: Never Comments:06/13/20 actively try ing to quit about 5-8 cigs/day Alcohol Use Standard Drinks/Week Comments Yes 0 (1 standard drink = 0.6 oz pur e alcohol) rarely [facility] Utilities Answer Date Recorded In the past 12 months has [employer], gas, oil, or water company threatened to [...] your living situation today? I have a [facility] place to live 04/03/2024 Think about [...] documented in this encounter Progress Notes * Amrita Asencio - 12/29/2023 3989 EDT [facility] Integrated Care Management Care Coordination Note Tankage Supervisor spoke with patient on text in order to coordinate care. -Patient reports that she doesn't need anything at this time and asked to rescheduled another time -[facility] suggested 3- 6 months outreach AMRITA ASENCIO 04/23/2024 9:55 documented in this encounter Plan of Treatment Not on file documented as of this encounter Visit Diagnoses Not on filedocumented in this encounter Care Teams Quarter Folder Relationship Specialty Start Date End Date Carrington Calderon MD 1 [facility] 1 [place] [phone] PCP - General Internal Medicine - Primary Care 12/09/20 Amrita Asencio Tankage Supervisor 04/21/23 01/03/24 Carmelo Hendrickson Coordinator 12/01/23 Amrita Asencio Tankage Supervisor 01/04/24 documented as of this encounter
--- OUTSIDE RECORDS SUMMARY | 2024-05-31 00:36 | XMS_ITS | Encounter Summary ---
Author Organization [facility] Address [address] [place] [address] Care Team Providers Care Tobacco Wrapping Machine Tender Name Role Phone Carrington Calderon MD Primary Care Provi anders NelsyClayAbigail Unavailable Encounter Details Date Type Department Care Team (Late st Contact Info) Description 11/11/2023 13:30 EDT Phlebotomy Only [facility] Laboratory Services - [address] [address] Duplex Trimmer, [facility] Lab Abnormal thyroid blood test; Encounter for screening for other viral diseases Social History Tobacco Use Types Packs/Day Years Used Date Smoking Tobacco: Former Cigarettes 0.5 13.6 S tarted: 11/10/2010 Smokeless Tobacco: Never Comments:06/13/20 actively try ing to quit about 5-8 cigs/day Alcohol Use Standard Drinks/Week Comments Yes 0 (1 standard drink = 0.6 oz pur e alcohol) rarely [facility] Utilities Answer Date Recorded In the past 12 months has [employer], gas, oil, or water [employer] threatened to shut off services in your [...] time in the past [address] [facility], were you homeless or living [...] 97 - 169 ng/dL 11/11/2023 17:27 EDT [facility] Blood VENOUS BLOOD / Unknown Venipuncture / Unknown 11/11/2023 13:53 EDT 11/11/2023 13:55 EDT us Carrington Calderon MD CHEMISTRY & BLOOD G ORDERABLES Final Result [facility] [address] [place] [address] * T4 FREE (11/11/2023 13:53 EDT) [facility] T4, Free 1.1 0.8 - 2.2 ng/dL 11/11/2023 16:08 EDT [facility] Blood VENOUS BLOOD / Unknown Venipuncture / Unknown 11/11/2023 13:53 EDT 11/11/2023 13:55 EDT Carrington Calderon MD CHEMISTRY & BLOOD G ORDERABLES Final Result Performing Organization Address [facility] Co de Phone Number [facility] [address] [place] [address] * HIV 1/2 ANTIGEN AND ANTIBODY, 4TH GENERATION (11/11/2023 13:53 EDT) [facility] HIV 1 and 2 Antibody/p24 Antigen, 4th Generation Negative Negative 11/11/2023 17:04 EDT [facility] Comment:If acute HIV-1 infec tion is suspected in a high risk patient, submit plasma specimen for HIV-1 RNA quantitation test. Blood VENOUS BLOOD / Unknown Venipuncture / Unknown 11/11/2023 13:53 EDT 11/11/2023 13:55 EDT Narrative [facility] - 11/11/2023 17:04 EDT Fourth Generation assay performed on the Siemens Centaur XPT. Carrington Calderon MD IMMUNOLOGY AND SERO LOGY ORDERABLES Final Result Performing Organization Address City/[facility]/ZIP Co de Phone Number [facility] [address] [place] [phone] * HEPATITIS C AB W REFLEX TO HCV RNA BY PCR (11/11/2023 13:53 EDT) [facility] Hep C Antibody Negative Negative 11/11/2023 17:03 EDT [facility] Blood VENOUS BLOOD / Unknown Venipuncture / Unknown 11/11/2023 13:53 EDT 11/11/2023 13:55 EDT Carrington Calderon MD CHEMISTRY & BLOOD G ORDERABLES Final Result Performing Organization Address [facility] Co de Phone Number [facility] [address] [place] [address] * HEPATITIS B PROFILE (11/11/2023 13:53 EDT) Hep B Surface Ag Negative Negative 11/11/19 17:04 EDT [facility] Hep B Surface Ab, Quantitative <3.1 See Note mIU/mL 11/11/2023 17:04 EDT [facility] Comment: Reference Range for Hep B Surface Ab, Quant: Positive: >= 10.0 mIU/mL Negative: ??< 10.0 mIU/mL Patient is presumed to not be immune to infection with Hepatitis B Virus. Hep B Surface Ab, Qualitative Negative See Note 11/11/2023 17:04 EDT [facility] Comment: Reference Range for Hep B Surface Ab, Qual: Unvaccinated: ??Negative Vaccinated: ??Positive Hepatitis B Core Ab, Total Negative Negative 11/11/2023 17:04 EDT [facility] Blood VENOUS BLOOD / Unknown Venipuncture / Unknown 11/11/2023 13:53 EDT 11/11/2023 13:55 EDT Carrington Calderon MD CHEMISTRY & BLOOD G ORDERABLES Final Result Performing Organization Address City/[facility]/ZIP Co de Phone Number [facility] [address] [place] [address] * (ABNORMAL) THYROID CASCADE (11/11/2023 13:53 EDT) TSH 0.37(L) 0.47 - 4.68 mIU/L 11/11/2023 15:38 EDT [facility] Blood VENOUS BLOOD / Unknown Venipuncture / Unknown 11/11/2023 13:53 EDT 11/11/2023 13:55 EDT Narrative [facility] - 11/11/2023 15:38 EDT NOTE: The results of this assay can be falsely lowered due to the consumption of Biotin. Carrington Calderon MD CHEMISTRY & BLOOD G ORDERABLES Final Result [facility] [address] [place], [place] [phone] documented in this encounter Visit Diagnoses Diagnosis Abnormal thyroid blood test Nonspecific abnormal results of thyroid function study Encounter for screening for other viral diseases documented in this encounter Care Teams Tobacco Wrapping Machine Tender Relationship Specialty Start Date End Date Carrington Calderon MD 1 [facility] 1 [place] [phone] PCP - General Internal Medicine - Primary Care 12/09/20 Abigail Díaz Client Success Specialist 04/21/23 01/03/24 documented as of this encounter
--- OUTSIDE RECORDS SUMMARY | 2024-05-31 00:36 | XMS_ITS | Encounter Summary ---
Author Organization [facility] Address [address] [place] [address] Care Team Providers Care Internal Combustion Engine Assembler Name Role Phone Carrington Calderon MD Primary Care Provi anders Abigail Díaz Unavailable Carmelo Hendrickson Unavailable Unavailable Encounter Details Date Type Department Care Team (Late st Contact Info) Description 12/01/2023 Patient Outreach [facility] Adult Primary Care - [place] [address] [place], [place] [id number] Carmelo Hendrickson Social History Tobacco Use Types Packs/Day Years Used Date Smoking Tobacco: Every Day Cigarettes 0.5 13.6 Started: 11/10/2010 Smokeless Tobacco: Never Comments:06/13/20 actively try ing to quit about 5-8 cigs/day Alcohol Use Standard Drinks/Week Comments Yes 0 (1 standard drink = 0.6 oz pur e alcohol) rarely [facility] Utilities Answer Date Recorded In the past 12 months has [employer], gas, oil, or water [employer] threatened to shut off services in your [...] any time in the past 12 m [facility], were you homeless or living in a [...] * Carmelo Hendrickson - 12/01/2023 1214 EDT [facility] Neurology Specialist Initial Note Referred by: Abigail Díaz [facility] PCP: Carrington Calderon Encounter type: Telephone Reason for Referral: Help with [employer] and other economic programs Notes: This human resources technician called Stella who was driving, made plan to call back tomorrow. Plan / Action Items: DYAN will follow up on 12/02/23 after 11am. Carmelo Hendrickson 12/01/23 12:15 documented in this encounter Plan of Treatment Not on file documented as of this encounter Visit Diagnoses Not on filedocumented in this encounter Care Teams Internal Combustion Engine Assembler Relationship Specialty Start Date End Date Carrington Calderon MD [address] [facility] [address] [place] [phone] PCP - General Internal Medicine - Primary Care 12/09/20 Abigail Díaz Senior Project Architect 04/21/23 01/03/24 Carmelo Hendrickson Coordinator 12/01/23 documented as of this encounter
--- OUTSIDE RECORDS SUMMARY | 2024-05-31 00:36 | XMS_ITS | Encounter Summary ---
Author Organization [facility] Address [address] [place] [address] Care Team Providers Care Sales Officer Name Role Phone Carrington Calderon MD Primary Care Provi anders Abigail Díaz Unavailable [phone] Carmelo Hendrickson Unavailable Unavailable Abigail Díaz Unavailable [phone] Reason for Visit * Reason Comments Med Change Request Encounter Details Date Type Department Care Team (Late st Contact Info) Description 06/29/2023 [facility] Adult Primary Care - [address] [address] Carrington Calderon MD 1 [facility] Level 1 [place] [phone] Med Change Request Social History Tobacco Use [...] Assessment Author No 10/02/2020 23:50 EDT River Francisco, RN * Are you blind or do [...] Refills Last Filled Start Date End Date SUMAtriptan (IMITREX) 20 mg/actuation nasal spray USE [...] INTO RIGHT NOSTRIL NEEDED FOR MIGRAINE HEADACHE [facility] [address] [place] [address] Confirmed Pharmacy? Yes Patient out of medication? Unknown How many pills does patient have left? unknown Last Refill Date: 06/27/23 Refills left? (explain exceptions requiring early refill) No Recent Visits Date Type Provider Dept 06/27/23 Office Visit Carrington Calderon MD [facility] Adult Prim Care 11/17/22 Office Visit Carrington Calderon MD [facility] Adult Prim Care 09/02/22 Office Visit Nimisha Clifton NP [facility] Adult Prim Care 05/20/22 Office Visit Rachel Stein PA-C [facility] Adult Prim Care Showing recent visits within past 540 days with a meds authorizing provider and meeting all other requirements Future Appointments Date Type Provider Dept 08/15/23 Appointment Carrington Calderon MD [facility] Adult Prim Care Showing future [...] (IMITREX) 20 mg/actuation nasal spray Instill 1 [place] into right nostril as needed for Migraine. 06/27/2023 06/29/2023 documented as of this encounter Care Teams Sales Officer Relationship Specialty Start Date End Date Carrington Calderon MD 1 [facility] 1 [place] [phone] PCP - General Internal Medicine - Primary Care 12/09/20 [facility] Associate 04/21/23 01/03/24 Carmelo Hendrickson Coordinator 12/01/23 [facility]ail [facility] Associate 01/04/24 documented as of this encounter
--- OUTSIDE RECORDS SUMMARY | 2024-05-31 00:36 | XMS_ITS | Encounter Summary ---
Author Organization [facility] Address [address] [place] [address] Care Team Providers Care Fullerette Name Role Phone Carrington Calderon MD Primary Care Provi anders Carmelo Hendrickson Unavailable Unavailable Abigail Díaz Unavailable Reason for Visit * Reason Onset Date Comments Medication Management 01/06/2024 Encounter Details Date Type Department Care Team (Late st Contact Info) Description 01/06/2024 Telephone [facility] Adult Primary Care - [address] [address] Carrington Calderon MD 1 [facility] Level [address] [place] [phone] Medication Management Social History Tobacco Use Types Packs/Day Years Used Date Smoking Tobacco: Every Day Cigarettes 0.5 13.6 Started: 11/10/2010 Smokeless Tobacco: Never Comments:06/13/20 actively try ing to quit about 5-8 cigs/day Alcohol Use Standard Drinks/Week Comments Yes 0 (1 standard drink = 0.6 oz pur e alcohol) rarely [facility] Utilities Answer Date Recorded In the [...] any time in the past 12 m [facility], were you homeless or living in [...] the past 12 months has th e [employer], gas, oil, or water company threatened to [...] Refills Last Filled Start Date End Date lancetsIndications :Type 2 diabetes mellitus with diabetic polyneuropathy, with long-term current use of insulin ([facility] Brand: Freestyle, check glucose 4 times per day for insulin dose titration 100 Each 11 01/06/2024 blood glucose test stripsIndications: Type 2 diabetes mellitus with diabetic polyneuropathy, with long-term current use of insulin ([facility]) Brand: Freestyle Lite, check glucose 4 times per day for insulin dose titration 100 Each 01/06/2024 blood glucose meterIndications:T ype 2 diabetes mellitus with diabetic polyneuropathy, with long-term current use of insulin ([facility]) Brand: Freestyle Lite 1 Each 01/06/2024 documented in this encounter Miscellaneous Notes * Telephone Encounter - Carrington Calderon MD - 01/06/2024 1234 EDT Madhuri Garsia ordered. Abigail- I see it's been hard to engage her. May be worth another try, particularly to help with getting a CGM, unless you think that's more in [facility] territory. Thanks. * Telephone Encounter - Geneva Pederson, RN - 01/06/2024 1128 EDT Unable to reach [...] for meter, lancets, and test strips to [facility] pharmacy in [place]. Fermin said patient is currently in the hospital now because her blood sugars have been above 400. documented in this encounter Plan of Treatment Not on file documented as of this encounter Visit Diagnoses Diagnosis Type 2 diabetes mellitus with diabetic polyneuropathy, with long-term current use of insulin ([facility]) ([facility])- Primary documented in this encounter Care Teams Fullerette Relationship Specialty Start Date End Date Carrington Calderon MD 1 [facility] Level [address] [place] [address] PCP - General Internal Medicine - Primary Care 12/09/20 Carmelo Hendrickson Coordinator 12/01/23 Abigail Díaz Propeller Driven Airplane Mechanic 01/04/24 documented as of this encounter
--- OUTSIDE RECORDS SUMMARY | 2024-05-31 00:36 | XMS_ITS | Encounter Summary ---
Author Organization [facility] Address [address] [place] [address] Care Team Providers Care Childbirth Educator Name Role Phone Carrington Calderon MD Primary Care Provi anders Abigail Díaz Unavailable [phone] Reason for Visit * Reason Comments Med Change Request Encounter Details Date Type Department Care Team (Late st Contact Info) Description 06/27/2023 [facility] Adult Primary Care - [address] [address] Carrington Calderon MD [address] [address] Med Change Request Social History [...] of Assessment Author No 10/02/2020 23:50 River Cavanaugh, RN * Are you blind or do [...] Miscellaneous Notes * Telephone Encounter - Sierra Jim RN - 06/28/2023 1331 EST Medication(s) Requested: sumatriptan [facility] Is patient out of medication? No Last Refill Date: 06/27/23 Refills available at pharmacy for requested medication. Request denied. SIERRA JIM RN 06/28/2023 13:31 documented in this encounter Plan of Treatment Not on file documented as of this encounter Visit Diagnoses Not on filedocumented in this encounter Care Teams Childbirth Educator Relationship Specialty Start Date End Date Carrington Calderon MD 1 [facility] Level [address] [place] [address] PCP - General Internal Medicine - Primary Care 12/09/20 Abigail Díaz Tectonophysicist 04/21/23 01/03/24 documented as of this encounter
--- OUTSIDE RECORDS SUMMARY | 2024-05-31 00:36 | XMS_ITS | Encounter Summary ---
Author Organization [facility] Address [address] [place] [address] Care Team Providers Care Film Mounter Name Role Phone Carrington Calderon MD Primary Care Provi anders Abigail Díaz Unavailable [phone] Carmelo Hendrickson Unavailable Unavailable Encounter Details Date Type Department Care Team (Late st Contact Info) Description 12/07/2023 Patient Outreach [facility] Adult Primary Care - [place] [address] [place], [place] [phone] Carmelo Hendrickson Social History Tobacco Use Types Packs/Day Years Used Date Smoking Tobacco: Every Day Cigarettes 0.5 13.6 Started: 11/10/2010 Smokeless Tobacco: Never Comments:06/13/20 actively try ing to quit about 5-8 cigs/day Alcohol Use Standard Drinks/Week Comments Yes 0 (1 standard drink = 0.6 oz pur e alcohol) rarely C Utilities Answer Date Recorded In the past 12 months has [employer], gas, oil, or water [employer] threatened to shut off services in your [...] time in the past 12 m [facility], were you homeless or living [...] * Carmelo Hendrickson - 12/07/2023 0957 EDT [facility] Email Marketing Intern Follow-up Note Encounter type: Telephone Notes: RC left a voicemail for Stella to follow up about resource coordination support. Plan / Action Items: RC will follow up in 1 week. Carmelo Hendrickson 12/07/23 9:57 documented in this encounter Plan of Treatment Not on file documented as of this encounter Visit Diagnoses Not on filedocumented in this encounter Care Teams Film Mounter Relationship Specialty Start Date End Date Carrington Calderon MD 1 [facility] 1 [place] [phone] PCP - General Internal Medicine - Primary Care 12/09/20 Abigail Díaz Finance Mgr 04/21/23 01/03/24 Carmelo Hendrickson Coordinator 12/01/23 documented as of this encounter
--- OUTSIDE RECORDS SUMMARY | 2024-05-31 00:36 | XMS_ITS | Encounter Summary ---
Author Organization [facility] Address [address] [place] [address] Care Team Providers Care Kitchen Food Server Name Role Phone Carrington Calderon MD Primary Care Provi anders Abigail Díaz Unavailable Carmelo Hendrickson Unavailable Unavailable Encounter Details Date Type Department Care Team (Late st Contact Info) Description 12/14/2023 Patient Outreach [facility] Adult Primary Care - [place] [address] [place], [place] [phone] Carmelo Hendrickson Social History Tobacco Use Types Packs/Day Years Used Date Smoking Tobacco: Every Day Cigarettes 0.5 13.6 Started: 11/10/2010 Smokeless Tobacco: Never Comments:06/13/20 actively try ing to quit about 5-8 cigs/day Alcohol Use Standard Drinks/Week Comments Yes 0 (1 standard drink = 0.6 oz pur e alcohol) rarely C Utilities Answer Date Recorded In the past 12 months has [employer], gas, oil, or water [employer] threatened to shut off services in your [...] any time in the past 12 m [facility], were you homeless or living in a [...] Carmelo Hendrickson - 12/14/2023 1234 EDT [facility] Research Manager Follow-up Note Encounter type: Telephone Notes: RC [...] on filedocumented in this encounter Care Teams Kitchen Food Server Relationship Specialty Start Date End Date Carrington Calderon MD 1 [facility] 1 [place] [address] PCP - General Internal Medicine - Primary Care 12/09/20 Abigail Díaz Operation Supervisor 04/21/23 01/03/24 Carmelo Hendrickson Coordinator 12/01/23 documented as of this encounter
--- OUTSIDE RECORDS SUMMARY | 2024-05-31 00:36 | XMS_ITS | Encounter Summary ---
Author Organization [facility] Address [address] [place] [address] Care Team Providers Care Visual Journalist Name Role Phone Carrington Calderon MD Primary Care Provi anders Abigail Díaz Unavailable Carmelo Hendrickson Unavailable Unavailable Abigail Díaz Unavailable [phone] Reason for Referral * Radiology Services (Routine/Next Available) - Authorization Not Required Specialty Diagnoses / [facility]erred To Contact Nuclear Medicine Diagnoses Subclinical hyperthyroidism Procedures NM THYROID UPTAKE AND SCAN OK IODINE I-123 SOD IODIDE EMILY Carrington Calderon MD [address] [place] [phone] Phone: tel: fax: [facility] Referral ID Status Reason Start Date Expiration Date Visits Requested Visits Authorized [id number] Authorization Not Required 12/06/2023 1 1 Reason for Visit * Reason Onset Date Comments Results 11/22/2023 Encounter Details Date Type Department Care Team (Late st Contact Info) Description 11/22/2023 Telephone [facility] Adult Primary Care - [address] [address] Carrington Calderon MD [address] [address] Results Social History Tobacco Use [...] the past 12 months has th e [employer], [employer], oil, or water [employer] threatened to shut off services in your [...] any time in the past 12 m [facility], were you homeless or living in [...] this without the supplement on board. Enzo Stella, Waiting for some of these to [...] storm documented in this encounter Care Teams Visual Journalist Relationship Specialty Start Date End Date Carrington Calderon MD 1 [facility] 1 [place] [address] PCP - General Internal Medicine - Primary Care 12/09/20 Abigail Díaz Press Operator Assistant 04/21/23 01/03/24 Carmelo Hendrickson Coordinator 12/01/23 Abigail Díaz Press Operator Assistant 01/04/24 documented as of this encounter
--- OUTSIDE RECORDS SUMMARY | 2024-05-31 00:36 | XMS_ITS | Encounter Summary ---
Author Organization [facility] Address [address] [place] [address] Care Team Providers Care Cash Posting Clerk Name Role Phone Carrington Calderon MD Primary Care Provi anders Abigail Díaz Unavailable [phone] Carmelo Hendrickson Unavailable Unavailable Reason for Visit * Reason Comments Pre-op Exam Encounter Details Date Type Department Care Team (Late st Contact Info) Description 12/01/2023 15:45 EDT Office Visit [facility] Adult Primary Care - [place] 1 [place] [address] Nimisha Clifton NP 1 [facility] Level 1 [place] [address] Neuropathic diabetic ulcer of foot [...] Recorded In the past 12 months has [employer], gas, oil, or water company threatened [...] you? 11/15/2023 How often does anyone, bennynick chivo family, [...] EST documented in this encounter Functional Status * [...] Date of Assessment Author No 10/02/2020 23:50 EDRiver Srivastava RN documented as of this encounter Mental Status * Because of a physical, mental, or emotional condition, do you have serious difficulty concentrating, remembering, or making decisions? (5 years old or older) Answer Entry Date Author No 10/02/2020 23:50 EDRiver Srivastava RN documented in this encounter Progress Notes [...] exam. Has been followed closely by her provider education specialist for ongoing foot infection, the plan is [...] with long-term current use of insulin (HCC-CMS) ([facility]) ??? Gastroparesis ??? Neuropathic diabetic ulcer of foot (HCC-CMS) ??? Tobacco use ??? Skin infection ??? [...] has a referral for therapy. ??? Diabetes ([facility]) A1c 10.3 on 11/28/2019 - poorly controlled ??? Diabetes mellitus, type 2 ([facility]) pt check blood sugars at home- X [...] occasionally ??? Neuropathic diabetic ulcer of foot ([facility]) 09/17/2021 ??? Obesity, unspecified ??? Osteomyelitis ([facility]) of left great toe-s/p amputation ??? [...] Diagnoses Diagnosis Neuropathic diabetic ulcer of foot ([facility])- Primary Type II or unspecified type diabetes mellitus with other specified manifestations, not stated as uncontrolled Pre-op exam Preoperative examination, unspecified documented in this encounter Care Teams Cash Posting Clerk Relationship Specialty Start Date End Date Carrington Calderon MD 1 [facility] 1 [place] [address] PCP - General Internal Medicine - Primary Care 12/09/20 Abigail Díaz Outbound Telemarketer 04/21/23 01/03/24 Carmelo Hendrickson Coordinator 12/01/23 documented as of this encounter
--- OUTSIDE RECORDS SUMMARY | 2024-05-31 00:36 | XMS_ITS | Encounter Summary ---
Author Organization [facility] Address [address] [place] [address] Care Team Providers Care Fresh Foods Technician Name Role Phone Carrington Calderon MD Primary Care Provi anders Amrita Asencio Unavailable Cramelo Hendrickson Unavailable Unavailable Amrita Asencio Unavailable [phone] Reason for Referral * Referral (Routine/Next Available) - Authorization Not Required Specialty Diagnoses / Procedures Referred By Contac t Referred To Contact Multidisciplinary Diagnoses Encounter for screening involving social determinants of health (SDoH) Carrington Calderon MD [address] [place] [address] 1 [place] [address] Phone: tel: fax: [facility] [address], [facility] [address] [place] [address] Phone: tel: fax: Referral ID Status Reason Start Date Expiration Date Visits Requested Visits Authorized [id number] Authorization Not Required Specialty Services Required 4 1 1 Question Answer Reason for Request: apply for [employer] and other relevant economic programs Encounter Details Date Type Department Care Team (Latest Contact Info) Description 11/15/2023 Patient Outreach [facility] Adult Primary Care [address] [address] Amrita Asencio Encounter for screening involving social determinants of health (SDoH) (Primary Dx) Social History Tobacco Use Types Packs/Day Years Used Date Smoking Tobacco: Former Cigarettes 0.5 13.6 S tarted: 11/10/2010 Smokeless Tobacco: Never Comments:06/13/20 actively try ing to quit about 5-8 cigs/day Alcohol Use Standard Drinks/Week Comments Yes 0 (1 standard drink = 0.6 oz pur e alcohol) rarely [facility] [employer] Answer Date Recorded In the past 12 months has th e [employer], gas, oil, or water company threatened to [...] any time in the past 12 m [facility], were you homeless or living in a skilled nursing (including now)? No 11/15/2023 Interpersonal Safety Answer Date Record ed How often does anyone, audrey waldron family, hit, punch or physically hurt you? 11/15/2023 How often does anyone, audrey chivo family, insult, scream, curse or threaten [...] encounter Progress Notes * Amrita Asencio - 11/15/2023 1501 EDT [facility] Management Assessment and Care Plan Referral Reason: Patient was referred to [facility] to assist with completing application for disability,difficulty with maintaining work Pertinent medical and behavioral health issues: ENT Chronic left ear pain Infectious Disease Skin infection Endocrine/Metabolic Pannus, abdominal Type 2 diabetes mellitus with diabetic polyneuropathy, with long-term current use of insulin ([facility]) ([facility]) Gastrointestinal/Abdominal Gastroparesis Psychiatric Anxiety and depression Musculoskeletal Chronic midline low back pain without sciatica Neuropathic diabetic ulcer of foot ([facility]) Family history of rheumatoid arthritis Neurological Migraine [...] Medicine - Primary Care) Amrita Asencio as Echocardiography Technologist Medications: Current Outpatient Medications: acetaminophen (TYLENOL) 325 [...] (Non-Medical): No Utilities: Not At Risk (11/15/2023) [facility] Utilities Threatened with loss of utilities: No [...] - BCB* ASUNCION LUO 05/08/1986 Male Spouse [id number]* 02/14/[birth year] [id number] [address], [place] [address] Any gaps or barriers with healthcare insurance coverage: Yes, Diabetic medications [facility] recommendedpatient using [employer] or Manufactures coupons DME: [...] review SSDI checklist before next visit with [facility] 3. Patient will review Sleep Hygiene resources sent by [facility] before next visit Barriers identified to meeting goals: No barriers identified Assessment/Clinical Summary and Plan: Disability- [facility] reviewed policy and practice for Disability. Patient reports that she is confidentwith help of her family to complete the application checklist [facility] completed intake and assessment Patient reports that she would like t access 3 squares- RC submitted to assist pt in accessing foodprogram Patient reviewed her current health needs and [facility] provided supportive counseling to pt Patient's access to their plan of care: Patient/family will access electronically through [employer] CM will follow-up in one month AMRITA ASECNIO 11/15/2023 15:19 documented in this encounter Plan of Treatment Scheduled Referrals Name Type Priority Associated Diagnoses Order Schedule AMB CONS/FOLLOW UP OUTPATIENT CARE MANAGEMENT - [facility] Outpatient Referral Routine Consult Encounter for screening involving social determinants of health (SDoH) Expected: 11/22/2023 (Approximate), Expires: 11/14/2024 documented as of this encounter Visit Diagnoses Diagnosis Encounter for screening involving social determinants of health (SDoH)- Primary documented in this encounter Care Teams Fresh Foods Technician Relationship Specialty Start Date End Date Carrington Calderon MD 1 [facility] 1 [place] [address] PCP - General Internal Medicine - Primary Care 12/09/20 Amrita Asencio Echocardiography Technologist 04/21/23 01/03/24 Carmelo Hendrickson Coordinator 12/01/23 Amrita Asencio Echocardiography Technologist 01/04/24 documented as of this encounter
--- OUTSIDE RECORDS SUMMARY | 2024-05-31 00:36 | XMS_ITS | Encounter Summary ---
Author Organization [facility] Address [address] [place] [address] Care Team Providers Care Automatic Buffer Name Role Phone Carrington Calderon MD Primary Care Provi anders Abigail Díaz Unavailable [phone] Carmelo Hendrickson Unavailable Unavailable Encounter Details Date Type Department Care Team (Late st Contact Info) Description 12/02/2023 Patient Outreach [facility] Adult Primary Care - [place] [address] [place], [place] [phone] Carmelo Hendrickson Social History Tobacco Use Types Packs/Day Years Used Date Smoking Tobacco: Every Day Cigarettes 0.5 13.6 Started: 11/10/2010 Smokeless Tobacco: Never Comments:06/13/20 actively try ing to quit about 5-8 cigs/day Alcohol Use Standard Drinks/Week Comments Yes 0 (1 standard drink = 0.6 oz pur e alcohol) rarely [facility] Utilities Answer Date Recorded In the past 12 months has [employer], gas, oil, or water [employer] threatened to shut off services in your [...] any time in the past 12 m [facility], were you homeless or living [...] documented in this encounter Progress Notes * Camrelo Hendrickson - 12/02/2023 1238 EDT [facility] Stratigraphy Teacher Initial Note Referred by: Abigail Díaz [facility] PCP: Carrington Calderon Encounter type: Telephone Reason for Referral: [employer] and other economic programs Notes: This Stratigraphy Teacher (RC) called Stella and talked to her about signing up for [place], as well as about health insurance. Stella reports a change in her family's employment situation and this RC walked her through how to sign up for health insurance through the [place] [employer] website given a potential special enrollment period [...] filedocumented in this encounter Care Teams Automatic Buffer Relationship Specialty Start Date End Date Carrington Calderon MD 1 [facility] Level [address] [place] [address] PCP - General Internal Medicine - Primary Care 12/09/20 Abigail Díaz Blender Conveyor Operator 04/21/23 01/03/24 Carmelo Hendrickson Coordinator 12/01/23 documented as of this encounter
--- OUTSIDE RECORDS SUMMARY | 2024-05-31 00:36 | XMS_ITS | Encounter Summary ---
Author Organization Health system Address [address] [place] [address] Care Team Providers Care Felt Hat Steamer Name Role Phone Carrington Calderon MD Primary Care Provi anders Abigail Díaz Unavailable Carmelo Hendrickson Unavailable Unavailable Abigail Díaz Unavailable [phone] Reason for Visit * Reason Onset Date Comments Medications Refill 07/06/2023 Encounter Details Date Type Department Care Team (Late st Contact Info) Description 07/06/2023 Refill [facility] Adult Primary Care - [address] [address] Carrington Calderon MD 1 [facility] Level [address] [place] [phone] Medications Refill Social History Tobacco Use Types [...] any time in the past 12 m [facility], were you homeless or living in [...] your living situation today? I have a [facility] place to live 04/03/2024 Think about the [...] Refills Last Filled Start Date End Date Blood-Glucose Transmitter (DEXCOM G6 TRANSMITTER) deviceIndications:T ype 2 diabetes mellitus with diabetic polyneuropathy, with long-term current use of insulin ([facility]) Inject 1 Each into the skin every 3 months. 1 Each 4 07/07/2023 documented in this encounter Miscellaneous Notes * Telephone Encounter - Berenice Mahan - 07/06/2023 0953 EST Medication(s) Requested/ Last Ordered: Dexcom Transmitter 03/16/23 Preferred Pharmacy: [facility] [address] [place] [address] Is patient out of medication? Yes Last Visit Date with Ordering Provider: 06/27/2023 Next Non-Acute Visit Date Scheduled with Care Team: 08/15/2023 Berenice Mahan 07/06/2023 9:54 documented in this encounter Plan of Treatment Not on file documented as of this encounter Visit Diagnoses Diagnosis Type 2 diabetes mellitus with diabetic polyneuropathy, with long-term current use of insulin (HCC-CMS) ([facility])- Primary documented in this encounter Discontinued Medications Medication Sig Discontinue Reason Start Date End Da te Blood-Glucose Transmitter (DEXCOM G6 TRANSMITTER) deviceIndications:Type 2 diabetes mellitus with diabetic polyneuropathy, with long-term current use of insulin ([facility]) Inject 1 Each into the skin every 3 months. Reorder 03/16/2023 07/06/2023 documented as of this encounter Care Teams Felt Hat Steamer Relationship Specialty Start Date End Date Carrington Calderon MD 1 [facility] 1 [place] [phone] PCP - General Internal Medicine - Primary Care 12/09/20 Abigail Díaz Tool And Equipment Rental Clerk 04/21/23 01/03/24 Carmelo Hendrickson Coordinator 12/01/23 Abigail Díaz Tool And Equipment Rental Clerk 01/04/24 documented as of this encounter
--- OUTSIDE RECORDS SUMMARY | 2024-05-31 00:36 | XMS_ITS | Encounter Summary ---
Author Organization [facility] Address [address] [place] [address] Care Team Providers Care Blender/Braze Applicator Name Role Phone Carrington Calderon MD Primary Care Provi anders Abigail Díaz Unavailable Reason for Visit * Reason Onset Date Comments Results 07/25/2023 XRAY right ankle Encounter Details Date Type Department Care Team (Late st Contact Info) Description 07/25/2023 Telephone [facility] Adult Primary Care - [address] [address] Carrington Calderon MD 1 [facility] Level [address] [place] [phone] Results (XRAY right ankle) Social History [...] on filedocumented in this encounter Care Teams Blender/Braze Applicator Relationship Specialty Start Date End Date Carrington Calderon MD 1 [facility] 1 [place] [address] PCP - General Internal Medicine - Primary Care 12/09/20 Abigail Díaz Postal Carrier 04/21/23 01/03/24 documented as of this encounter
--- OUTSIDE RECORDS SUMMARY | 2024-05-31 00:36 | XMS_ITS | Encounter Summary ---
Author Organization [facility] Address [address] [place] [address] Care Team Providers Care Corporate Trainer Name Role Phone Carrington Calderon MD Primary Care Provi anders Abigail Díaz Unavailable Carmelo Hendrickson Unavailable Unavailable Abigail Díaz Unavailable Encounter Details Date Type Department Care Team (Late st Contact Info) Description 01/03/2024 Lab Requisition [facility] Pathology & Laboratory Medicine - [address] [address] Madelin Ojeda MD [address] [place] [address] Encounter for other general examination Social History Tobacco Use Types Packs/Day Years Used Date Smoking Tobacco: Every Day Cigarettes 0.5 13.6 Started: 11/10/2010 Smokeless Tobacco: Never Comments:06/13/20 actively try ing to quit about 5-8 cigs/day Alcohol Use Standard Drinks/Week Comments Yes 0 (1 standard drink = 0.6 oz pur e alcohol) rarely [facility] Utilities Answer Date Recorded In the [...] explore management options, if applicable. 01/09/2024 11:58 [facility] Final Diagnosis A. FOOT, LEFT, TRANSMETATARSAL AMPUTATION: - Skin and soft tissue with marked acute inflammation and necrosis involving the resection margin. - Underlying bone with acute osteomyelitis. - Two of five bone resection margins with extensive acute osteomyelitis (see comment). 01/09/2024 11:58 [facility] Diagnosis Comment Correlate with microbiology studies. 01/09/2024 11:58 [facility] Attestation By the signature below, the attending physician certifies that they have 1) personally conducted a gross and/or microscopic examination of the described specimen(s), and/or personally interpreted the results of laboratory testing of the described specimen(s), and 2) personally rendered or confirmed the above diagnosis. 01/09/2024 11:58 [facility] at 1158 Clinical History Diabetic foot ulcer 01/09/2024 11:58 [facility] Gross Description A. [...] aggregate 8.0 x 3.5 x 2.5 cm. Broke Beater sections are submitted as follows: BLOCK SHIELDS A1- plantar ulcer to closest skin and soft tissue margin of resection (inked blue), perpendicular A2- bone underlying plantar ulcer, following acid decalcification A3-A4- separately received transected bone margins, en face, following acid decalcification (differentially inked) EUNICE MAE(ASCP) 01/03/2024 10:29 01/09/2024 11:58 EDT [facility] Performing Lab [facility] 11:58 EDT [facility] Scanned Images 01/09/2024 11:58 EDT [facility] Tissue TRAUMATIC AMPUTATION OF UPPER LIMB / Unknown 01/02/2024 8:23 EDT 01/03/2024 8:00 EDT us Madelin Ojeda MD PATHOLOGY ORDERABLES Final Resul t [facility] [address] [place] [address] documented in this encounter Visit Diagnoses Diagnosis Encounter for other general examination documented in this encounter Care Teams Corporate Trainer Relationship Specialty Start Date End Date Carrington Calderon MD 1 [facility] Level 1 [place] [phone] PCP - General Internal Medicine - Primary Care 12/09/20 Abigail Díza Playground Official 04/21/23 01/03/24 Carmelo Hendrickson Coordinator 12/01/23 Abigail Díaz Playground Official 01/04/24 documented as of this encounter
--- OUTSIDE RECORDS SUMMARY | 2024-05-31 00:36 | XMS_ITS | Encounter Summary ---
Author Organization [facility] Address [address] [place] [address] Care Team Providers Care Replenishment Associate Name Role Phone Carrington Calderon MD Primary Care Provi anders Abigail Díaz Unavailable [phone] Carmelo Hendrickson Unavailable Unavailable Encounter Details Date Type Department Care Team (Late st Contact Info) Description 12/09/2023 Orders Only [facility] Radiology - Main [place] [address] [place], [place] [phone] Teresita Fitzpatrick MD [address] [place] [address] Social History Tobacco Use Types Packs/Day Years Used Date Smoking Tobacco: Every Day Cigarettes 0.5 13.6 Started: 11/10/2010 Smokeless Tobacco: Never Comments:06/13/20 actively try ing to quit about 5-8 cigs/day Alcohol Use Standard Drinks/Week Comments Yes 0 (1 standard drink = 0.6 oz pur e alcohol) rarely C Utilities Answer Date Recorded In the past 12 months has [employer], gas, oil, or water company threatened to [...] of Assessment Author No 10/02/2020 23:50 River Cavanauhg RN * Because of a physical, mental, [...] on filedocumented in this encounter Care Teams Replenishment Associate Relationship Specialty Start Date End Date Carrington Calderon MD 1 [facility] Level [address] [place] [address] PCP - General Internal Medicine - Primary Care 12/09/20 Abigail Díaz Instrumentation Tech 04/21/23 01/03/24 Carmelo Hendrickson Coordinator 12/01/23 documented as of this encounter
--- OUTSIDE RECORDS SUMMARY | 2024-05-31 00:36 | XMS_ITS | Encounter Summary ---
Author Organization [facility] Address [address] [place] [address] Care Team Providers Care Labor Custodian Name Role Phone Carrington Calderon MD Primary Care Provi anders Abigail Díaz Unavailable Reason for Visit * Reason Comments Follow-up Gastroparesis / 6 Mo [facility] Follow-Up * Consult (Routine) - Receiving Office to Obtain Authorization Specialty Diagnoses / Procedures Referred By Kit goode Referred To Contact Diagnoses Gastroparesis Dale Collier MD [address] [place] [address] [place] [address] Phone: tel: fax: [facility] [address] [address] Phone: tel: fax: Referral ID Status Reason Start Date Expiration Date Visits Requested Visits Authorized [id number] Receiving Office to Obtain Authorization Specialty Services Required 1 1 Encounter Details Date Type Department Care Team (Late st Contact Info) Description 11/16/2023 11:00 EDT Telemedicine [facility] - [address] [address] Scott Arzate MD [address] [place] [address], [address] [place] [phone] Cyclic vomiting syndrome (Primary Dx) Social History [...] pur e alcohol) rarely [facility] [employer] Answer Date Recorded In the past 12 months has th e [employer] gas, oil, or water [employer] threatened to shut off services in your [...] River Francisco RN documented in this encounter Progress Notes * Kasi Bishop [...] lives) Patient location state: Visit Location State: [place] The location of the provider: Office Provider location state: Visit Location State: [place] The following people and their roles were [...] IUD 1 Each, 1 Each, intrauterine, CONTINUOUS IUD/LARGary Kimberly D, MD, 1 Each at 08/05/23 1318 Allergies [...] vomiting documented in this encounter Care Teams Labor Custodian Relationship Specialty Start Date End Date Carrington Calderon MD 1 [facility] 1 [place] [phone] PCP - General Internal Medicine - Primary Care 12/09/20 Abigail Díaz Wool Mixer 04/21/23 01/03/24 documented as of this encounter
--- OUTSIDE RECORDS SUMMARY | 2024-05-31 00:36 | XMS_ITS | Encounter Summary ---
Author Organization [facility] Address [address] [place] [address] Care Team Providers Care Manager Intelligence Name Role Phone Carly Calderon MD Primary Care Provi anders Abigail Díaz Unavailable Reason for Referral * Consult (Routine/Next Available) - Closed Specialty Diagnoses / Procedures Referred By Kit goode Referred To Contact Sleep Medicine Diagnoses Primary insomnia Carly Calderon MD Phone: tel: fax: [facility] - [address] [address] Phone: tel: fax: Referral ID Status Reason Start Date Expiration Date V isits Requested Visits Authorized [id number] Closed Specialty Services Required 06/27/2023 1 1 Question Answer Reason for referral Diffifulty initiating sleep, Difficulty maintaining sleep Patient Type: Adult * Consult (Routine/Next Available) - Specialty Report Received Specialty Diagnoses / Procedures Referred By Kit goode Referred To Contact Hematology Diagnoses Night sweats Lymphocytosis Carly Calderon MD Phone: tel: fax: [facility] Hematology & Oncology - Main [address] [address] Phone: tel: fax: Referral ID Status Reason Start Date Expiration Date Visits Requested Visits Authorized [id number] Specialty Report Received Specialty Services Required 06/27/2023 1 1 Question Answer Reason for Request: night sweats Reason for Visit * Reason Comments Annual Exam Gynecologic Exam Encounter Details Date Type Department Care Team (Late st Contact Info) Description 06/27/2023 14:45 EST Office Visit [facility] Adult Primary Care - [address] [address] Carly Calderon MD 1 [facility] Level 1 [place] [address] Cyclic vomiting syndrome (Primary Dx); Anxiety; Chronic midline low back pain without sciatica; Type 2 diabetes mellitus with diabetic polyneuropathy, with long-term current use of insulin (HCC-CMS); Primary insomnia; Diabetic polyneuropathy associated with type 2 diabetes mellitus (HCC-CMS); Night sweats; Lymphocytosis; Cervical cancer screening; Candidal [...] health care facility (including now)? No 06/14/2023 Interpersonal Safety Answer [...] Refills Last Filled Start Date End Date gabapentin (NEURONTIN) 300 mg capsuleIndications:D iabetic polyneuropathy associated with type 2 diabetes mellitus ([facility]) Take 1 Capsule by mouth every morning AND 4 Capsules at bedtime. 450 Capsule 4 06/27/2023 metoclopramide HCl (REGLAN) 10 mg tablet Take 1 Tablet by mouth 3 times daily before meals. Starting 3 days before menses and stopping after end of period 270 Tablet 3 06/27/2023 SITagliptin phosphate (JANUVIA) 100 mg tabletIndications:Ty pe 2 diabetes mellitus with diabetic polyneuropathy, with long-term current use of insulin ([facility]) Take 1 Tablet by mouth daily. 90 Tablet 4 06/27/2023 insulin glargine (LANTUS SOLOSTAR/SEMGLEE) 100 unit/mL (3 mL) injection penIndications:Type 2 diabetes mellitus with diabetic polyneuropathy, with long-term current use of insulin ([facility]) Inject 44 Units into the skin at bedtime. 36 mL 4 06/27/2023 ondansetron (ZOFRAN-ODT) 4 mg disintegrating tabletIndications:Cy clic vomiting syndrome Take 1 Tablet by mouth every 8 hours as needed for Nausea. 30 Tablet 11 06/27/2023 SUMAtriptan (IMITREX) 20 mg/actuation nasal spray Instill 1 Placida into right nostril as needed for Migraine. 6 Each 1 06/27/2023 4 empagliflozin (JARDIANCE) 25 mg tabletIndications:Ty pe 2 diabetes mellitus with diabetic polyneuropathy, with long-term current use of insulin ([facility]) Take 1 Tablet by mouth daily. 90 Tablet 4 06/27/2023 4 HUMALOG KWIKPEN INSULIN 100 unit/mL injectable penIndications:Type 2 diabetes mellitus with diabetic polyneuropathy, with long-term current use of insulin ([facility]) 8 units with breakfast, 12 units with lunch/dinner 30 mL 11 06/27/2023 traMADol (ULTRAM) 50 mg tabletIndications:Ch ronic midline low back pain without sciatica Take 1 Tablet by mouth every 6 hours as needed for Pain. Daily Max: 200 mg 30 Tablet 5 06/27/2023 4 LORazepam (ATIVAN) 0.5 mg tabletIndications:An xiety Take 1 Tablet by mouth daily as needed for Anxiety. Daily Max: 0.5 mg 30 Tablet 3 06/27/2023 4 documented in this encounter Progress Notes * Carly Calderon MD - 06/27/2023 9363 EST Images from the original note were [...] long-term current use of insulin ([facility]): CGM data reviewed in detail today. [...] diabetes mellitus ([facility]): We discussed considering an increase in her [...] Luis Wilson present during the exam as real estate salesperson and assistant pressman. - PAP TEST Candidal intertrigo: Rash is [...] tried this. She continues to take Reglan [id number] and both during and her episodes of [...] Risk types, PCR Negative Negative 07/13/2023 16:25 [facility] Comment:No E6 or E7 mRNA is detected from HPV types 16,18,31,33,35,39,45,51,52,56,58,59,66, and 68 by construction equipment mechanic helper mediated amplification. Pap Test CERVIX UTERI STRUCTURE / Unknown 06/27/2023 16:00 EST 07/11/2023 13:44 EST Carly Calderon MD MICROBIOLOGY - GENE RAL ORDERABLES Final Result [facility] [address] [place] [id number] * PAP TEST (06/27/2023 16:00 EST) Specimens A. Cervix and/or Endocervix , ThinPrep Imaging System with Manual Evaluation 07/13/2023 16:25 [facility] Specimen Adequacy Satisfactory for Evaluation - transformation zone component absent 07/13/2023 16:25 [facility] General Categorization Negative for intraepithelial lesion or malignancy 07/13/2023 16:25 [facility] Attestation . 07/13/2023 16:25 [facility] at 1625 Clinical History screening 07/13/19 24 16:25 [facility] HPV The result for the Human Papillomavirus (HPV) Detection-High Risk Types is Negative. No E6 or E7 mRNA is detected from HPV types 16,18,31,33,35,39 ,45,51,52,56,58,5 9,66, and 68 by construction equipment mechanic helper mediated amplification.Lorena ting was performed on specimen [id number] and was resulted on 07/13/2023 1625 EST by JANET, LAB INSTRUMENT RESULTS IN 07/13/2023 16:25 EST [facility] Performing Lab [facility] 07/13/2023 16:25 EST [facility] Scanned Images 07/13/2023 16:25 EST [facility] Pap Test CERVIX UTERI STRUCTURE / Unknown 06/27/2023 16:00 EST 06/27/2023 16:00 EST us Carly Calderon MD PATHOLOGY ORDERABLE S Final Result [facility] [address] [place] [address] documented in this encounter Visit Diagnoses Diagnosis Cyclic vomiting syndrome- Primary Persistent vomiting Anxiety Anxiety state, unspecified Chronic midline low back pain without sciatica Type 2 diabetes mellitus with diabetic polyneuropathy, with long-term current use of insulin ([facility]) Primary insomnia Persistent disorder of initiating or [...] Reorder 11/17/2022 06/27/2023 traMADol (ULTRAM) 50 mg tabletIndications:Stock Counter gordo midline low back pain without sciatica Take 1 Tablet by mouth every 6 hours as needed for Pain. Daily Max: 200 mg Reorder 02/01/2023 06/27/2023 blood glucose test strips One Touch Verio IQ or other brand compatible with meter and covered by patient's insurance. Testing QID. 08/11/2020 06/27/2023 blood glucose test strips Brand: FreeStyle Precision Cristo, use as directed if Freestyle Vignesh censor isnt working 10/06/2020 06/27/2023 blood glucose meterIndications:Type 2 diabetes mellitus with diabetic polyneuropathy, with long-term current use of insulin ([facility]) One Touch Verio Flex meter. 12/21/2021 06/27/2023 empagliflozin (JARDIANCE ORAL) Take by mouth. 06/27/2023 SEMGLEE,INSULIN GLARG-YFGN,PEN 100 unit/mL (3 mL) insulin pen INJECT 40 UNITS SUBCUTANEOUSLY AT BEDTIME 04/01/2023 06/27/2023 SITagliptin phosphate (JANUVIA) 100 mg tabletIndications:Type 2 diabetes mellitus with diabetic polyneuropathy, with long-term current use of insulin ([facility]) Take 1 Tablet by mouth daily. Reorder 11/17/2022 06/27/2023 insulin glargine (LANTUS SOLOSTAR/SEMGLEE) 100 unit/mL (3 mL) injection penIndications:Type 2 diabetes mellitus with diabetic polyneuropathy, with long-term current use of insulin ([facility]) Inject 40 Units into the skin at bedtime. Reorder 11/17/2022 06/27/2023 HUMALOG KWIKPEN INSULIN 100 unit/mL injectable penIndications:Type 2 diabetes mellitus with diabetic polyneuropathy, with long-term current use of insulin ([facility]) Inject 12 Units into the skin 3 times daily with meals. Reorder 04/04/2023 06/27/2023 SUMAtriptan (IMITREX) 20 mg/actuation nasal spray Instill 1 Placida into right nostril as needed for Migraine. Reorder 05/13/2023 06/27/2023 metoclopramide HCl (REGLAN) 10 mg tablet Take 1 Tablet by mouth 3 times daily before meals. Reorder 03/02/2022 06/27/2023 gabapentin (NEURONTIN) 300 mg capsuleIndications:Charo betic polyneuropathy associated with type 2 diabetes mellitus ([facility]) Take 1 Capsule by mouth every morning AND 3 Capsules at bedtime. Reorder 11/17/2022 06/27/2023 documented as of this encounter Care Teams Manager Intelligence Relationship Specialty Start Date End Date Carly Calderon MD 1 [facility] 1 [place] [phone] PCP - General Internal Medicine - Primary Care 12/09/20 Abigail Díaz Edi Manager 04/21/23 01/03/24 documented as of this encounter
--- OUTSIDE RECORDS SUMMARY | 2024-05-31 00:36 | XMS_ITS | Encounter Summary ---
Author Organization [facility] Address [address] [place] [address] Care Team Providers Care Shovel Engineer Name Role Phone Carrington Calderon MD Primary Care Provi anders Abigail Díaz Unavailable [phone] Reason for Visit * Reason Comments New Patient Visit * Consult (Routine/Next Available) - Specialty Report Received Specialty Diagnoses / Procedures Referred By Kit goode Referred To Contact Hematology Diagnoses Night sweats Lymphocytosis Carrington Calderon MD Phone: tel: fax: [facility] Hematology & Oncology [address] [address] Phone: tel: fax: Referral ID Status Reason Start Date Expiration Date Visits Requested Visits Authorized [id number] Specialty Report Received Specialty Services Required 06/27/2023 1 1 Encounter Details Date Type Department Care Team (Late st Contact Info) Description 08/05/2023 11:00 EST Office Visit [facility] Hematology & Oncology [address] [id number] Josh Clayton MD 111 [facility], [facility] 2 [place] [phone] Bandemia (Primary Dx) Social History Tobacco Use [...] Answer Entry Date Author No 10/02/2020 23:50 WANDAT River Francisco RN documented in this encounter Progress Notes * Josh Clayton [...] results, and documentation. 08/05/2023 Josh Clayton MD Customer Experience Associate, Division of Hematology / Oncology [facility] -------- NON FACE TO FACE PROLONGED SERVICES Date of related [id number] encounter 08/05/2023. Pre visit preparation performed on [...] Primary documented in this encounter Care Teams Shovel Engineer Relationship Specialty Start Date End Date Carrington Calderon MD 1 [facility] 1 [place] [address] PCP - General Internal Medicine - Primary Care 12/09/20 Abigail Díaz Plate Printer 04/21/23 01/03/24 documented as of this encounter
--- OUTSIDE RECORDS SUMMARY | 2024-05-31 00:36 | XMS_ITS | Encounter Summary ---
Author Organization [facility] Address [address] [place] [address] Care Team Providers Care Gunnery/Ordnance Officer Name Role Phone Carrington Calderon MD Primary Care Provi anders BreAbigail Unavailable [phone] Reason for Referral * Radiology Services (Routine/Next Available) - Authorization Not Required Specialty Diagnoses / Procedures Referred By Contac t Referred To Contact Diagnoses Pain in right ankle and joints of right foot Procedures XR ANKLE RIGHT 3 OR MORE VIEWS Kylah Vázquez PA [address] [place] [phone] Phone: tel: fax: [facility] Referral ID Status Reason Start Date Expiration Date Visits Requested Visits Authorized [id number] Authorization Not Required 07/25/2023 1 1 Reason for Visit * Radiology Services (Routine/Next Available) - Authorization Not Required Specialty Diagnoses / Procedures Referred By Contac t Referred To Contact Diagnoses Pain in right ankle and joints of right foot Procedures XR ANKLE RIGHT 3 OR MORE VIEWS Kylah Vázquez PA [address] [place] [phone] Phone: tel: fax: [facility] Referral ID Status Reason Start Date Expiration Date Visits Requested Visits Authorized [id number] Authorization Not Required 07/25/2023 1 1 Encounter Details Date Type Department Care Team (Latest Contact Info) Description 07/25/2023 13:24 EST - 07/25/2023 23:59 EST Hospital Encounter [facility] Radiology Xray Outpatient - [place] [id number] Pain in right ankle and joints of [...] River Cavanaugh RN documented in this encounter Medications at Time of Discharge acetaminophen (TYLENOL) 325 mg tablet Take 2 Tabs by mouth every 4 hours as needed for Pain. 1 Blood-Glucose Sensor (DEXCOM G6 SENSOR) deviceIndications:T ype 2 diabetes mellitus with diabetic polyneuropathy, with long-term current use of insulin ([facility]) Inject 1 Each into the skin every 10 days. 9 Each 4 3 Blood-Glucose Transmitter (DEXCOM G6 TRANSMITTER) deviceIndications:T ype 2 diabetes mellitus with diabetic polyneuropathy, with long-term current use of insulin ([facility]) Inject 1 Each into the skin every 3 months. 1 Each 4 4 gabapentin (NEURONTIN) 300 mg capsuleIndications: Diabetic polyneuropathy associated with type 2 diabetes mellitus ([facility]) Take 1 Capsule by mouth every morning AND 4 Capsules at bedtime. 450 Capsule 4 4 insulin glargine (LANTUS SOLOSTAR/SEMGLEE) 100 unit/mL (3 mL) injection penIndications:Type 2 diabetes mellitus with diabetic polyneuropathy, with long-term current use of insulin ([facility]) Inject 44 Units into the skin at bedtime. 36 mL 4 4 lidocaine 5 % (LIDODERM) 5 % patchIndications:Ch ronic midline low back pain without sciatica Place 1 Patch onto the skin daily. Patch(es) may remain in place for up to 12 hours in any 24-hour period. 30 Patch 2 3 metoclopramide HCl (REGLAN) 10 mg tablet Take 1 Tablet by mouth 3 times daily before meals. Starting 3 days before menses and stopping after end of period 270 Tablet 3 4 omeprazole (PRILOSEC) 20 mg capsuleIndications: Gastroparesis Take 1 Capsule by mouth daily. 90 Capsule 3 3 ondansetron (ZOFRAN-ODT) 4 mg disintegrating tabletIndications:C yclic vomiting syndrome Take 1 Tablet by mouth every 8 hours as needed for Nausea. 30 Tablet 11 4 prochlorperazine (COMPAZINE) 10 mg tabletIndications:C yclic vomiting syndrome Take 1 Tablet by mouth every 8 hours as needed for Nausea. 8 Tablet 11 3 prochlorperazine (COMPAZINE) 25 mg suppositoryIndicati ons:Cyclic vomiting syndrome Place 1 Suppository rectally every 12 hours as needed for Nausea. 6 Suppository 3 SITagliptin phosphate (JANUVIA) 100 mg tabletIndications:T ype 2 diabetes mellitus with diabetic polyneuropathy, with long-term current use of insulin ([facility]) Take 1 Tablet by mouth daily. 90 Tablet 4 4 SUMAtriptan (IMITREX) 20 mg/actuation nasal spray USE 1 SPRAY(S) INTO RIGHT NOSTRIL NEEDED FOR MIGRAINE HEADACHE 6 Each 1 4 ZOLMitriptan (ZOMIG) 2.5 mg tabletIndications:C atamenial disorder,Migraine with aura and without status migrainosus, not intractable,Cyclic vomiting syndrome Take 1 Tablet by mouth 2 times daily. BID starting 2 days prior to onset of menses, continuing for a total of 5 days (10 doses) 10 Tablet 3 DULoxetine 40 mg capsule,delayed release(DR/EC)Indic ations:Anxiety and depression Take 40 mg by mouth daily. 30 Capsule 3 01/18/20 24 empagliflozin (JARDIANCE) 25 mg tabletIndications:T ype 2 diabetes mellitus with diabetic polyneuropathy, with long-term current use of insulin ([facility]) Take 1 Tablet by mouth daily. 90 Tablet 4 02/21/20 24 HUMALOG KWIKPEN INSULIN 100 unit/mL injectable penIndications:Type 2 diabetes mellitus with diabetic polyneuropathy, with long-term current use of insulin ([facility]) 8 units with breakfast, 12 units with lunch/dinner 30 mL 4 11/11/19 24 LORazepam (ATIVAN) 0.5 mg tabletIndications:A nxiety Take 1 Tablet by mouth daily as needed for Anxiety. Daily Max: 0.5 mg 30 Tablet 3 4 12/20/19 24 traMADol (ULTRAM) 50 mg tabletIndications:C hronic midline low back pain without sciatica Take 1 Tablet by mouth every 6 hours as needed for Pain. Daily Max: 200 mg 30 Tablet 4 12/20/19 24 documented as of this encounter Discharge Disposition [...] on the plantar surface of the calcaneus. [id number] Narrative 07/25/2023 16:12 EST EXAM/TECHNIQUE: XR ANKLE [...] on the plantar surface of the calcaneus. [id number] us Kylah DAWSON IMG DIAGNOSTIC IMAGING ORDERABL ES Final Result documented in this encounter Visit Diagnoses Diagnosis Pain in right ankle and joints of right foot documented in this encounter Care Teams Gunnery/Ordnance Officer Relationship Specialty Start Date End Date Carrington Calderon MD 1 [facility] 1 [place] [phone] PCP - General Internal Medicine - Primary Care 12/09/20 Abigail Díaz Hose Turner 04/21/23 01/03/24 documented as of this encounter
--- OUTSIDE RECORDS SUMMARY | 2024-05-31 00:36 | XMS_ITS | Encounter Summary ---
Author Organization [facility] Address [address] [place] [address] Care Team Providers Care Candy Vendor Name Role Phone Carrington Calderon MD Primary Care Provi anders Abigail Díaz Unavailable Reason for Visit * Reason Comments Consult * Consult (Routine/Next Available) - Specialty Report Received Specialty Diagnoses / Procedures Referred By Kit goode Referred To Contact Obstetrics & Gynecology Diagnoses IUD contraception Carrington Calderon MD Phone: tel: fax: [facility] [address] [address] Phone: tel: fax: Referral ID Status Reason Start Date Expiration Date Visits Requested Visits Authorized [id number] Specialty Report Received Specialty Services Required 3 1 1 Encounter Details Date Type Department Care Team (Late st Contact Info) Description 08/05/2023 13:00 EST Initial consult [facility] [address] [address] Kamini Vega MD 111 [facility], Level [address] [place] [phone] Encounter for IUD insertion (Primary Dx); Gastroparesis [...] documented in this encounter Progress Notes * Kamini Vega [...] pt has a referral for therapy. Diabetes ([facility]) A1c 10.3 on 11/28/2019 - poorly controlled Diabetes mellitus, type 2 ([facility]) pt check blood sugars at [...] vomiting occasionally Neuropathic diabetic ulcer of foot ([facility]) 09/17/2021 Obesity, unspecified Osteomyelitis ([facility]) of left great toe-s/p amputation Peripheral neuropathy [...] withdrawn slightly and arms deployed as per help desk technician specifications. Applicator removed Strings trimmed to 3 [...] at 1345, Until Tue08/03/30 at 1344, Per [facility] P &T Committee, use is restricted to outpatient clinics and the OR. LARC approved for inpatient use includes Mirena, Nexplanon, and Paragard only for patients covered by [facility]., Routine IUD Insertion 08/05/2023 13:18 EST 1 Each documented in this encounter Orders Medications Ordered That Stan ht Not Have Been Administered Count Last Ordered Date First Ordered Date levonorgestreL (MIRENA) 21 m cg/24 hours (8 yrs) 52 mg IUD 1 Each 1 08/05/2023 documented in this encounter Care Teams Candy Vendor Relationship Specialty Start Date End Date Carrington Calderon MD 1 [facility] 1 [place] [phone] PCP - General Internal Medicine - Primary Care 12/09/20 Abigail Díaz Radio Repairman 04/21/23 01/03/24 documented as of this encounter
--- OUTSIDE RECORDS SUMMARY | 2024-05-31 00:36 | XMS_ITS | Encounter Summary ---
Author Organization [facility] Address [address] [place] [address] Care Team Providers Care Retail Presentation Specialist Name Role Phone Carrington Calderon MD Primary Care Provi anders Abigail Díaz Unavailable Carmelo Hendrickson Unavailable Unavailable Encounter Details Date Type Department Care Team (Late st Contact Info) Description 12/02/2023 Patient Outreach [facility] Adult Primary Care - [place] 1 [place], [place] [phone] Abigail Díaz Social History Tobacco Use Types Packs/Day Years Used Date Smoking Tobacco: Every Day Cigarettes 0.5 13.6 Started: 11/10/2010 Smokeless Tobacco: Never Comments:06/13/20 actively try ing to quit about 5-8 cigs/day Alcohol Use Standard Drinks/Week Comments Yes 0 (1 standard drink = 0.6 oz pur e alcohol) rarely [facility] Utilities Answer Date Recorded In the past 12 months has [employer], gas, oil, or water company threatened to [...] any time in the past 12 m [facility], were you homeless or living [...] documented in this encounter Progress Notes * Abigail Díaz - 12/02/2023 0905 EDT [facility] Dial Refinisher Care Coordination Care management phone consult as scheduled, pt did not answer phone. manager ecommerce called and left voicemail requesting call back to reschedule. Additional outreach planned documented in this encounter Plan of Treatment Not on file documented as of this encounter Visit Diagnoses Not on filedocumented in this encounter Care Teams Retail Presentation Specialist Relationship Specialty Start Date End Date Carrington Calderon MD 1 [facility] 1 [place] [phone] PCP - General Internal Medicine - Primary Care 12/09/20 Abigail Díaz Dial Refinisher 04/21/23 01/03/24 Carmelo Hendrickson Coordinator 12/01/23 documented as of this encounter
--- OUTSIDE RECORDS SUMMARY | 2024-05-31 00:36 | XMS_ITS | Encounter Summary ---
Author Organization [facility] Address [address] [place] [address] Care Team Providers Care Manager Scientific Name Role Phone Carrington Calderon MD Primary Care Provi anders Abigail Díaz Unavailable Carmelo Hendrickson Unavailable Unavailable Abigail Díaz Unavailable Encounter Details Date Type Department Care Team (Late st Contact Info) Description 12/15/2023 Patient Outreach [facility] Adult Primary Care - [address] [phone] Abigail Díaz Social History Tobacco Use Types Packs/Day Years Used Date Smoking Tobacco: Every Day Cigarettes 0.5 13.6 Started: 11/10/2010 Smokeless Tobacco: Never Comments:06/13/20 actively try ing to quit about 5-8 cigs/day Alcohol Use Standard Drinks/Week Comments Yes 0 (1 standard drink = 0.6 oz pur e alcohol) rarely [facility] Utilities Answer Date Recorded In the past 12 months has [employer] gas, oil, or water company threatened to [...] in the past 12 m [facility], were you homeless or living in a [...] Progress Notes * Abigail Díaz - 12/15/2023 7255 EDT [facility] Senior Software Quality Analyst Care Coordination Care management phone consult as scheduled, pt did not answer phone. technical operations manager called and left voicemail requesting call back to reschedule. documented in this encounter Plan of Treatment Not on file documented as of this encounter Visit Diagnoses Not on filedocumented in this encounter Care Teams Manager Scientific Relationship Specialty Start Date End Date Carrington Calderon MD 1 [facility] 1 [place] [phone] PCP - General Internal Medicine - Primary Care 12/09/20 Abigail Díaz Senior Software Quality Analyst 04/21/23 01/03/24 Carmelo Hendrickson Coordinator 12/01/23 Abigail Díaz Senior Software Quality Analyst 01/04/24 documented as of this encounter
--- OUTSIDE RECORDS SUMMARY | 2024-05-31 00:37 | XMS_ITS | Encounter Summary ---
Author Organization [facility] Address [address] [place] [address] Care Team Providers Care Hide Curer Name Role Phone Carrington Calderon MD Primary Care Provi anders Reason for Visit * Reason Onset Date Comments Medications Refill 02/01/2023 Encounter Details Date Type Department Care Team (Late st Contact Info) Description 02/01/2023 Refill [facility] Adult Primary Care [address] [phone] Carrington Calderon MD 1 [facility] Level 1 [place] [address] Medications Refill Social History Tobacco [...] or threaten to hurt you? Never 11/17/2022 Comments No Sex and Gender Information Value [...] 10/02/2020 23:50 EDT River Francisco RN * Do you have difficulty dressing or bathing? (5 years old or older) Answer Date of Assessment Author No 10/02/2020 23:50 WANDAT River Francisco RN * Because of a [...] EDRiver Srivastava RN documented in this encounter Ordered Prescriptions Prescription Sig Dispense Quantity Refills Last Filled Start Date End Date traMADol (ULTRAM) 50 mg tabletIndications: Chronic midline [...] documented as of this encounter Care Teams Hide Curer Relationship Specialty Start Date End Date Carrington Calderon MD 1 [facility] 1 [place] [address] PCP - General Internal Medicine - Primary Care 12/09/20 documented as of this encounter
--- OUTSIDE RECORDS SUMMARY | 2024-05-31 00:37 | XMS_ITS | Encounter Summary ---
Author Organization [facility] Address [address] [place] [address] Care Team Providers Care Manager Commercial Real Estate Name Role Phone Carrington Calderon MD Primary Care Provi anders Reason for Visit * Reason Onset Date Comments Medications Refill 03/16/2023 Encounter Details Date Type Department Care Team (Late st Contact Info) Description 03/16/2023 Refill [facility] Adult Primary Care [address] [phone] Carrington Calderon MD 1 [facility] Level 1 [place] [address] Medications Refill Social History Tobacco [...] 0946 EDT omeprazole (PRILOSEC) 20 mg capsule [[id number]] ?? Order Details Dose: 20 mg Route: oral Frequency: DAILY Dispense Quantity: 90 Capsule Refills: 3 ?? Sig: Take 1 Capsule by mouth daily. ?? Start Date: 12/17/22 End Date: -- Written Date: 12/17/22 ondansetron (ZOFRAN-ODT) 4 mg disintegrating tablet [[id number]] ?? Order Details Dose: 4 mg Route: oral Frequency: EVERY 8 HOURS PRN for Nausea Dispense Quantity: 30 Tablet Refills: 11 ?? Sig: Take 1 Tablet by mouth every 8 hours as needed for Nausea. ?? Start Date: 11/17/22 End Date: -- Written Date: 11/17/22 Expiration Date: -- ?? insulin glargine (LANTUS SOLOSTAR/SEMGLEE) 100 unit/mL (3 mL) injection pen [[id number]] ?? Order Details Dose: 40 Units Route: subcutaneous Frequency: AT BEDTIME Dispense Quantity: 36 mL Refills: 4 ?? Sig: Inject 40 Units into the skin at bedtime. ?? Start Date: 11/17/22 End Date: -- Written Date: 11/17/22 LORazepam (ATIVAN) 0.5 mg tablet [[id number]] ?? Order Details Dose: 0.5 mg Route: oral Frequency: DAILY PRN for Anxiety Dispense Quantity: 30 Tablet Refills: 3 ?? Sig: Take 1 Tablet by mouth daily as needed for Anxiety. ??Daily Max: 0.5 mg ?? Start Date: 11/17/22 End Date: -- Written Date: 11/17/22 Expiration Date: 05/16/23 ?? * Telephone Encounter - Eryn Pack RN - 03/16/2023 1553 EDTFrom: Cristy Luo To: Office of Carrington Calderon MD Sent: 03/16/2023 9:35 EDT Subject: Medication Renewal Request Refills have been requested for the following medications: LORazepam (ATIVAN) 0.5 mg tablet [Carrington Calderon] insulin glargine (LANTUS SOLOSTAR/SEMGLEE) 100 unit/mL (3 mL) injection pen [Carrington Calderon] ondansetron (ZOFRAN-ODT) 4 mg disint egrating tablet [Carrington Calderon] omeprazole (PRILOSEC) 20 mg capsule [Carrington Cadleron] Preferred pharmacy: [facility] [address] [place] [address] documented in this encounter Plan of Treatment Not on file documented as of this encounter Visit Diagnoses Diagnosis Anxiety Anxiety state, unspecified Type 2 diabetes mellitus with diabetic polyneuropathy, with long-term current use of insulin ([facility]) Gastroparesis documented in this encounter Care Teams Manager Commercial Real Estate Relationship Specialty Start Date End Date Carrington Calderon MD 1 [facility] 1 [place] [address] PCP - General Internal Medicine - Primary Care 12/09/20 documented as of this encounter
--- OUTSIDE RECORDS SUMMARY | 2024-05-31 00:37 | XMS_ITS | Encounter Summary ---
Author Organization [facility] Address [address] [place] [address] Care Team Providers Care Senior Office Assistant Name Role Phone Carrington Calderon MD Primary Care Provi anders Abigail Díaz Unavailable [phone] Carmelo Hendrickson Unavailable Unavailable Abigail Díaz Unavailable Reason for Visit * Reason Onset Date Comments Appointment Related 05/04/2023 Encounter Details Date Type Department Care Team (Late st Contact Info) Description 05/04/2023 Telephone [facility] Endocrinology - [facility] [address] [place] [address] Amilcar Ortega MD 62 [facility] [address] [place] [address] Appointment Related Social History Tobacco [...] - 05/04/2023 0823 EST Patient accepted zoom MEDICAL AIDE opening with Dr. Orteag today at 4:00. documented in this encounter Plan of Treatment Not on file documented as of this encounter Visit Diagnoses Not on filedocumented in this encounter Care Teams Senior Office Assistant Relationship Specialty Start Date End Date Carrington Calderon MD 1 [facility] 1 [place] [address] PCP - General Internal Medicine - Primary Care 12/09/20 Abigail Díaz Freight Agent 04/21/23 01/03/24 Carmelo Hendrickson Coordinator 12/01/23 Abigail Díaz Freight Agent 01/04/24 documented as of this encounter
--- OUTSIDE RECORDS SUMMARY | 2024-05-31 00:37 | XMS_ITS | Encounter Summary ---
Author Organization [facility] Address [address] [place] [address] Care Team Providers Care Oxidation Engineer Name Role Phone Carrington Calderon MD Primary Care Provi anders Reason for Visit * Reason Onset Date Comments Prior Auth, Medication 04/03/2023 Encounter Details Date Type Department Care Team (Late st Contact Info) Description 04/03/2023 Telephone [facility] Adult Primary Care [address] [phone] Carrington Calderon MD 1 [facility] Level [address] [place] [address] Prior Auth, Medication Social History [...] Never 11/17/2022 How often does anyone, inclnick waldron family, [...] with long-term current use of insulin ([facility]) Inject 12 Units into the skin [...] insulin ([facility] Primary documented in this encounter Discontinued Medications Medication Sig Discontinue Reason Start Date End Da te NOVOLOG FLEXPEN U-100 INSULIN 100 unit/mL (3 mL) injectable penIndications:Type 2 diabetes mellitus with diabetic polyneuropathy, with long-term current use of insulin ([facility]) INJECT 12 UNITS THREE TIMES DAILY WITH MEALS Insurance does not cover 04/01/2023 04/04/2023 insulin lispro (HUMALOG KWIKPEN INSULIN) 100 unit/mL injectable penIndications:Type 2 diabetes mellitus with diabetic polyneuropathy, with long-term current use of insulin ([facility]) Inject 8-14 Units into the skin 3 times daily with meals. Reorder 11/18/2022 04/04/2023 documented as of this encounter Care Teams Oxidation Engineer Relationship Specialty Start Date End Date Carrington Calderon MD 1 [facility] Level [address] [place] [phone] PCP - General Internal Medicine - Primary Care 12/09/20 documented as of this encounter
--- OUTSIDE RECORDS SUMMARY | 2024-05-31 00:37 | XMS_ITS | Encounter Summary ---
Author Organization [facility] Address [address] [place] [address] Care Team Providers Care Legal Practice Manager Name Role Phone Carrington Calderon MD Primary Care Provi anders Encounter Details Date Type Department Care Team (Late st Contact Info) Description 03/17/2023 13:45 EDT Phlebotomy Only [facility] Laboratory Services - [address] [address] Public Relations Assistant, [facility] Night sweats; Lymphocytosis Social History Tobacco [...] money to buy more. Never true 11/18/19 Within the past 12 months, t he [...] River Francisco RN documented in this encounter Plan of [...] 16.01(H) 4.00 - 12.40 K/cmm 03/17/2023 14:47 [facility] RBC 4.25 3.86 - 5.04 M/cmm 03/17/2023 14:47 [facility] Hemoglobin 13.8 11.6 - 15.2 g/dL 03/17/2023 14:47 [facility] HCT 39.0 34.9 - 44.4 % 03/17/2023 14:47 [facility] MCV 92 81 - 98 fL 03/17/2023 14:47 [facility] MCH 32.5 26.7 - 33.3 pg 03/17/2023 14:47 [facility] MCHC 35.4 32.1 - 35.9 g/dL 03/17/2023 14:47 [facility] RDW-CV 12.7 <14.7 % 03/17/2023 14:47 [facility] RDW-SD 42.2 <50.4 fl 03/17/2023 14:47 [facility] PLT 435(H) 141 - 377 K/cmm 03/17/2023 14:47 [facility] MPV 9.5 9.5 - 12.7 fL 03/17/2023 14:47 [facility] % Neutrophils 44.3 % 03/17/2023 14:47 [facility] % Lymphocytes 44.1 % 03/17/2023 14:47 [facility] % Monocytes 7.4 % 03/17/2023 14:47 [facility] % Eosinophils 3.3 % 03/17/2023 14:47 [facility] % Basophils 0.6 % 03/17/2023 14:47 [facility] % Immature Grans 0.3 % 03/17/20 14:47 [facility] Absolute Neutrophils 7.09 2.20 - 8.85 K/cmm 03/17/2023 14:47 [facility] Absolute Lymphocytes 7.06(H) 1.09 - 3.30 K/cmm 03/17/2023 14:47 [facility] Absolute Monocytes 1.19(H) 0.10 - 0.80 K/cmm 03/17/2023 14:47 [facility] Absolute Eosinophils 0.53 0.03 - 0.61 K/cmm 03/17/2023 14:47 [facility] ABS Basophils 0.09 0.01 - 0.11 K/cmm 03/17/2023 14:47 [facility] Absolute Immature Grans 0.05 0.00 - 0.06 K/cmm 03/17/2023 14:47 [facility] Type of Differential: Auto 03/17/2023 14:47 [facility] Blood VENOUS BLOOD / Unknown Venipuncture / Unknown 03/17/2023 13:52 EDT 03/17/2023 13:52 EDT us Carrington Calderon MD PACKAGES & DNA PROB E ORDERABLES Final Result [facility] [address] [place] [address] * LEUKEMIA/LYMPHOMA PANEL BY FLOW CYTOMETRY (03/17/2023 13:52 EDT) Final Immunophenotypic Interpretation Peripheral blood, flow cytometric analysis: - No immunophenotypic evidence of a clonal cell population. See comment. 12:55 [facility] Comment The results of flow cytometry show no immunophenotypic evidence of involvement by a clonal lymphoproliferative disorder. Correlation of these findings with morphologic and clinical data is essential. 3 12:55 [facility] Attestation By the signature below, the attending physician certifies that they have 1) personally conducted a gross and/or microscopic examination of the described specimen(s), and/or personally interpreted the results of laboratory testing of the described specimen(s), and 2) personally rendered or confirmed the above diagnosis. 3 12:55 [facility] at 1255 Clinical History night sweats, lymphocytosis, smudge cells 3 12:55 [facility] Description The specimen consists of [...] is no increase in blasts. 3 12:55 [facility] Flow Markers CD10, CD117, CD11c, CD16, CD19, CD20, CD3, CD33, CD34, CD38, CD4, CD45, CD5, CD56, CD8, HLA-DR, [place], and Lambda 3 12:55 [facility] FDA Disclaimer This test was developed and its performance characteristics determined by the Department of Pathology and Laboratory Medicine, [facility], [place], [place] It has not been cleared or [...] high complexity clinical laboratory testing. 3 12:55 [facility] Sample Analyzed Date and Time 03/18/23 at 1106 3 12:55 [facility] Scanned Images 3 12:55 [facility] Blood VENOUS BLOOD / Unknown Venipuncture / Unknown 03/17/2023 13:52 EDT 03/17/2023 13:52 EDT us Carrington Calderon MD PATHOLOGY ORDERABLE S Final Result [facility] [address] [place] [address] documented in this encounter Visit Diagnoses Diagnosis Night sweats Generalized hyperhidrosis Lymphocytosis Lymphocytosis (symptomatic) documented in this encounter Care Teams Legal Practice Manager Relationship Specialty Start Date End Date Carrington Calderon MD 1 [facility] Level [address] [place] [address] PCP - General Internal Medicine - Primary Care 12/09/20 documented as of this encounter
--- OUTSIDE RECORDS SUMMARY | 2024-05-31 00:37 | XMS_ITS | Encounter Summary ---
Author Organization [facility] Address [address] [place] [address] Care Team Providers Care Auto Service Mechanic Name Role Phone Carrington Calderon MD Primary Care Provi anders Abigail Díaz Unavailable Reason for Visit * Reason Onset Date Comments Appointment Related 06/20/2023 Encounter Details Date Type Department Care Team (Late st Contact Info) Description 06/20/2023 Telephone [facility] Adult Primary Care - [address] [address] Carrington Calderon MD 1 [facility] Level [address] [place] [address] Appointment Related Social History Tobacco [...] Encounter - Jose Luis Wilson - 06/20/2023 1539 EST LVM for patient to get blood work done prior to upcoming visit on 06/27/23. Jose Luis Wilson 06/20/2023 15:40 documented in this encounter Plan of Treatment Not on file documented as of this encounter Visit Diagnoses Not on filedocumented in this encounter Care Teams Auto Service Mechanic Relationship Specialty Start Date End Date Carrington Calderon MD 1 [facility] 1 [place] [address] PCP - General Internal Medicine - Primary Care 12/09/20 Abigail Díaz Pumper Gager Apprentice 04/21/23 01/03/24 documented as of this encounter
--- OUTSIDE RECORDS SUMMARY | 2024-05-31 00:37 | XMS_ITS | Encounter Summary ---
Author Organization [facility] Address [address] [place] [address] Care Team Providers Care Laboratory Mechanic Helper Name Role Phone Carrington Calderon MD Primary Care Provi anders Abigail Díaz Unavailable Carmelo Hendrickson Unavailable Unavailable Reason for Referral * Consult (Routine/Next Available) - Specialty Report Received Specialty Diagnoses / Procedures [facility] Referred To Contact Obstetrics & Gynecology Diagnoses IUD contraception Carrington Calderon MD Phone: tel: fax: [facility] - [address] [address] Phone: tel: fax: Referral ID Status Reason Start Date Expiration Date Visits Requested Visits Authorized [id number] Specialty Report Received Specialty Services Required 3 1 1 Question Answer Reason for Request: IUD placement Reason for Visit * Reason Onset Date Comments Referral Request 06/01/2023 Encounter Details Date Type Department Care Team (Late st Contact Info) Description 06/01/2023 Telephone [facility] Adult Primary Care - [address] [address] Carrington Calderon MD 1 [facility] 1 [place] [address] Referral Request Social History Tobacco Use Types Packs/Day Years Used Date Smoking Tobacco: Former Cigarettes 0.5 13.6 S tarted: 11/10/2010 Smokeless Tobacco: Never Comments:06/13/20 actively try ing to quit about 5-8 cigs/day Alcohol Use Standard Drinks/Week Comments Yes 0 (1 standard drink = 0.6 oz pur e alcohol) rarely [facility] Utilities Answer Date Recorded In the past 12 months has th e [employer], gas, oil, or water [employer] threatened to shut off services in your [...] is calling to get a referral to APPLICATION INTEGRATOR for a Kriss placement. documented in this encounter Plan of Treatment Scheduled Referrals Name Type Priority Associated Diagnoses Orde r Schedule AMB CONS/FOLLOW UP GYNECOLOGY Outpatient Referral Routine/Next Available IUD contraception Expected: 06/08/2023 (Approximate), Expires: 06/01/2024 documented as of this encounter Visit Diagnoses Diagnosis IUD contraception- Primary Presence of intrauterine contraceptive device documented in this encounter Care Teams Laboratory Mechanic Helper Relationship Specialty Start Date End Date Carrington Calderon MD 1 [facility] 1 [place] [address] PCP - General Internal Medicine - Primary Care 12/09/20 Abigail Díaz Funeral Service Manager 04/21/23 01/03/24 Carmelo Hendrickson Coordinator 12/01/23 documented as of this encounter
--- OUTSIDE RECORDS SUMMARY | 2024-05-31 00:37 | XMS_ITS | Encounter Summary ---
Author Organization [facility] Address [address] [place] [address] Care Team Providers Care Placement Director Name Role Phone Carrington Calderon MD Primary Care Provi anders Reason for Referral * Consult (Routine/Next Available) - Closed Specialty Diagnoses / Procedures Referred By Kit goode Referred To Contact Diagnoses Cyclical vomiting Carrington Calderon MD Phone: tel: fax: Mallorie Martinez MD [address] [place] [phone] Phone: tel: fax: Referral ID Status Reason Start Date Expiration Date V isits Requested Visits Authorized [id number] Closed Specialty Services Required 03/16/2023 1 1 Question Answer Reason for Request: cyclic menstrual vomiting- LARC with suppression of menses [facility] Reason for Visit * Reason Comments Follow-up Diabetes Encounter Details Date Type Department Care Team ([facility] Contact Info) Description 03/16/2023 10:15 EDT Telemedicine [facility] Adult Primary Care - [address] [address] Carrington Calderon MD 1 [facility] Level 1 [place] [phone] Cyclical vomiting (Primary Dx); Anxiety and depression; Type 2 diabetes mellitus with diabetic polyneuropathy, with long-term current use of insulin ([facility]) (HCC); Night sweats; Lymphocytosis; Abnormal TSH [...] Last Filled Start Date End Date Blood-Glucose Sensor (DEXCOM G6 SENSOR) deviceIndications: Type 2 diabetes mellitus with diabetic polyneuropathy, with long-term current use of insulin (HCC-CMS) Inject 1 Each into the skin every 10 days. 9 Each 4 03/16/2023 Blood-Glucose Transmitter (DEXCOM G6 TRANSMITTER) deviceIndications: Type [...] Home Patient location state: Visit Location State: [place] The location of the provider: Office Provider location state: Visit Location State: [place] The following people and their roles were [...] use of insulin ([facility]) ([facility]): Stella is in need of new Dexcom supplies. I sent a prescription to her pharmacy. I will alsosend her an invite through [facility] so that I am able to review [...] has a stepdaughter who she has raised animal husbandry worker since age 4. All 3 children have [...] 16.01(H) 4.00 - 12.40 K/cmm 03/17/2023 14:47 [facility] RBC 4.25 3.86 - 5.04 M/cmm 03/17/2023 14:47 [facility] Hemoglobin 13.8 11.6 - 15.2 g/dL 03/17/2023 14:47 [facility] HCT 39.0 34.9 - 44.4 % 03/17/2023 14:47 [facility] MCV 92 81 - 98 fL 03/17/2023 14:47 [facility] MCH 32.5 26.7 - 33.3 pg 03/17/2023 14:47 [facility] MCHC 35.4 32.1 - 35.9 g/dL 03/17/2023 14:47 [facility] RDW-CV 12.7 <14.7 % 03/17/2023 14:47 [facility] RDW-SD 42.2 <50.4 fl 03/17/2023 14:47 [facility] PLT 435(H) 141 - 377 K/cmm 03/17/2023 14:47 [facility] MPV 9.5 9.5 - 12.7 fL 03/17/2023 14:47 [facility] % Neutrophils 44.3 % 03/17/2023 14:47 [facility] % Lymphocytes 44.1 % 03/17/2023 14:47 [facility] % Monocytes 7.4 % 03/17/2023 14:47 [facility] % Eosinophils 3.3 % 03/17/2023 14:47 [facility] % Basophils 0.6 % 03/17/2023 14:47 [facility] % Immature Grans 0.3 % 03/17/20 14:47 [facility] Absolute Neutrophils 7.09 2.20 - 8.85 K/cmm 03/17/2023 14:47 [facility] Absolute Lymphocytes 7.06(H) 1.09 - 3.30 K/cmm 03/17/2023 14:47 [facility] Absolute Monocytes 1.19(H) 0.10 - 0.80 K/cmm 03/17/2023 14:47 [facility] Absolute Eosinophils 0.53 0.03 - 0.61 K/cmm 03/17/2023 14:47 [facility] ABS Basophils 0.09 0.01 - 0.11 K/cmm 03/17/2023 14:47 [facility] Absolute Immature Grans 0.05 0.00 - 0.06 K/cmm 03/17/2023 14:47 [facility] Type of Differential: Auto 03/17/2023 14:47 [facility] Blood VENOUS BLOOD / Unknown Venipuncture / Unknown 03/17/2023 13:52 EDT 03/17/2023 13:52 EDT us Carrington Calderon MD PACKAGES & DNA PROB E ORDERABLES Final Result [facility] [address] [place] [address] * LEUKEMIA/LYMPHOMA PANEL BY FLOW CYTOMETRY (03/17/2023 13:52 EDT) Final Immunophenotypic Interpretation Peripheral blood, flow cytometric analysis: - No immunophenotypic evidence of a clonal cell population. See comment. 12:55 [facility] Comment The results of flow cytometry show no immunophenotypic evidence of involvement by a clonal lymphoproliferative disorder. Correlation of these findings with morphologic and clinical data is essential. 3 12:55 [facility] Attestation By the signature below, the attending physician certifies that they have 1) personally conducted a gross and/or microscopic examination of the described specimen(s), and/or personally interpreted the results of laboratory testing of the described specimen(s), and 2) personally rendered or confirmed the above diagnosis. 3 12:55 [facility] at 1255 Clinical History night sweats, lymphocytosis, smudge cells 3 12:55 [facility] Description The specimen consists [...] lineage. There is no increase in blasts. 12:55 [facility] Flow Markers CD10, CD117, CD11c, CD16, CD19, CD20, CD3, CD33, CD34, CD38, CD4, CD45, CD5, CD56, CD8, HLA-DR, [place], and Lambda 3 12:55 [facility] FDA Disclaimer This test was developed and its performance characteristics determined by the Department of Pathology and Laboratory Medicine, [facility], [place], [place] It has not been cleared [...] high complexity clinical laboratory testing. 3 12:55 EDT [facility] Sample Analyzed Date and Time 03/18/23 at 1106 3 12:55 EDT [facility] Scanned Images 3 12:55 EDT [facility] Blood VENOUS BLOOD / Unknown Venipuncture / Unknown 03/17/2023 13:52 EDT 03/17/2023 13:52 EDT Carrington Calderon MD PATHOLOGY ORDERABLE S Final Result Performing Organization Address City/[facility]/ZIP Co de Phone Number [facility] [address] [place] [address] * THYROID-STIMULATING IMMUNOGLOBULIN (TSI), SERUM (03/14/2023 15:19 EDT) Thyroid-Stimulati ng Immunoglobin, S <1.0 <=1.3 TSI index 03/25/2023 15:55 EDT [facility] Comment: Test Performed by: [facility] [address] [place] [id number] Mac Operator: Wiley Fry M.D. Ph.D.; CLIA# [id number] Blood VENOUS BLOOD / Unknown Venipuncture / Unknown 03/14/2023 15:19 EDT 03/18/2023 16:07 EDT Carrington Calderon MD CHEMISTRY & BLOOD G ORDERABLES Final Result [facility] [address] [place] [address] * T3, TOTAL (03/14/2023 15:19 EDT) T3, Total 143 97 - 169 ng/dL 03/16/2023 15:56 EDT [facility] Blood VENOUS BLOOD / Unknown Venipuncture / Unknown 03/14/2023 15:19 EDT 03/14/2023 15:19 EDT Carrington Calderon MD CHEMISTRY & BLOOD G ORDERABLES Final Result Performing Organization Address City/[facility]/ZIP Co de Phone Number [facility] [address] [place] [address] * T4 FREE (03/14/2023 15:19 EDT) T4, Free 1.3 0.8 - 2.2 ng/dL 03/16/2023 14:42 EDT [facility] Blood VENOUS BLOOD / Unknown Venipuncture / Unknown 03/14/2023 15:19 EDT 03/14/2023 15:19 EDT Carrington Calderon MD CHEMISTRY & BLOOD G ORDERABLES Final Result Performing Organization Address [facility] de Phone Number [facility] [address] [place] [address] * (ABNORMAL) THYROID CASCADE (03/14/2023 15:19 EDT) Pathologist [facility] TSH 0.44(L) 0.47 - 4.68 mIU/L 03/16/2023 14:03 EDT [facility] Comment:Turbid sample identi fied, interpret with caution as turbidity may affect result. Blood VENOUS BLOOD / Unknown Venipuncture / Unknown 03/14/2023 15:19 EDT 03/14/2023 15:19 EDT Narrative [facility] - 03/16/2023 14:03 EDT NOTE: The results of this assay can be falsely lowered due to the consumption of Biotin. Carrington Calderon MD CHEMISTRY & BLOOD G ORDERABLES Final Result Performing Organization Address [facility] Co de Phone Number [facility] [address] [place] [address] documented in this encounter Visit Diagnoses Diagnosis Cyclical vomiting- Primary Persistent vomiting Anxiety and depression Dysthymic disorder Type 2 diabetes mellitus with diabetic polyneuropathy, with long-term current use of insulin (HCC-CMS) (HCC) Night sweats Generalized hyperhidrosis Lymphocytosis Lymphocytosis [...] current use of insulin ([facility]) Use 1 pen needle as directed 4 times daily. 09/02/2020 03/16/2023 documented as of this encounter Care Teams Placement Director Relationship Specialty Start Date End Date Carrington Calderon MD 1 [facility] Level [address] [place] [phone] PCP - General Internal Medicine - Primary Care 12/09/20 documented as of this encounter
--- OUTSIDE RECORDS SUMMARY | 2024-05-31 00:37 | XMS_ITS | Encounter Summary ---
Author Organization [facility] Address [address] [place] [address] Care Team Providers Care Molder Automobile Carpets Name Role Phone Carrington Calderon MD Primary Care Provi anders Abigail Díaz Unavailable [phone] Carmelo Hendrickson Unavailable Unavailable Abigail Díaz Unavailable [phone] Reason for Visit * Reason Comments Medications Refill Encounter Details Date Type Department Care Team (Late st Contact Info) Description 03/31/2023 Refill [facility] Adult Primary Care - [address] [phone] Vicki Mosqueda MD [address] [place] [phone] Medications Refill Social History Tobacco Use Types [...] Author No 10/02/2020 23:50 EDT River Francisco in, RN * Are you blind or [...] Refills Last Filled Start Date End Date SEMGLEE,INSULIN GLARG-YFGN,PEN 100 unit/mL (3 mL) insulin pen INJECT 40 UNITS SUBCUTANEOUSLY AT BEDTIME 12 mL 3 3 06/27/19 24 documented in this encounter Miscellaneous Notes * Telephone Encounter - Joss Washington RN - 04/01/2023 1043 EDT Requested Prescriptions Pending Prescriptions Disp Refills ??? SEMGLEE,INSULIN GLARG-YFGN,PEN 100 unit/mL (3 mL) insulin pen [Pharmacy Med Name: Semglee (yfgn) 100 UNIT/ML Subcutaneous Solution Pen-injector] 12 mL 0 Sig: INJECT 40 UNITS SUBCUTANEOUSLY AT BEDTIME [facility] [address] [place] [address] Confirmed Pharmacy? Yes Patient out of medication? Unknown How many pills does patient have left? unknown Last Refill Date: 11/17/22 Refills left? (explain exceptions requiring early refill) No Recent Visits Date Type Provider Dept 11/17/22 Office Visit Carrington Calderon MD [facility] Adult Prim Care 09/02/22 Office Visit Nimisha Clifton NP [facility] Adult Prim Care 05/20/22 Office Visit Rahcel Stein PA-C [facility] Adult [...] on filedocumented in this encounter Care Teams Molder Automobile Carpets Relationship Specialty Start Date End Date Carrington Calderon MD 1 [facility] 1 [place] [phone] PCP - General Internal Medicine - Primary Care 12/09/20 Abigail Díaz Joinery Factory Worker 04/21/23 01/03/24 Carmelo Hendrickson Coordinator 12/01/23 Abigail Díaz Joinery Factory Worker 01/04/24 documented as of this encounter
--- OUTSIDE RECORDS SUMMARY | 2024-05-31 00:37 | XMS_ITS | Encounter Summary ---
Author Organization [facility] Address [address] [place] [address] Care Team Providers Care Floor Surfacer Name Role Phone Carrington Calderon MD Primary Care Provi anders Abigail Díaz Unavailable [phone] Reason for Visit * Reason Comments Nicotine Dependence Encounter Details Date Type Department Care Team (Late st Contact Info) Description 05/11/2023 Community Health Team [facility] Adult Primary Care - [place] [address] [place], [place] [phone] Kylah Wilson Social History Tobacco Use Types [...] Author No 10/02/2020 23:50 EDRiver Srivastava RN * Because of a physical, mental, [...] documented in this encounter Progress Notes * Kylah Wilson [...] and would like to work with a track and field coach 1:1 for additional support along with [...] filedocumented in this encounter Care Teams Floor Surfacer Relationship Specialty Start Date End Date Carrington Calderon MD 1 [facility] Level [address] [place] [address] PCP - General Internal Medicine - Primary Care 12/09/20 Abigail Díaz Director Of Exhibits 04/21/23 01/03/24 documented as of this encounter
--- OUTSIDE RECORDS SUMMARY | 2024-05-31 00:37 | XMS_ITS | Encounter Summary ---
Author Organization [facility] Address [address] [place] [address] Care Team Providers Care Reducer Name Role Phone Carrington Calderon MD Primary Care Provi anders Abigail Díaz Unavailable Carmelo Hendrickson Unavailable Unavailable Abigail Díaz Unavailable Reason for Visit * Reason Onset Date Comments Coordination Of Care 02/17/2023 Encounter Details Date Type Department Care Team (Late st Contact Info) Description 02/17/2023 Telephone [facility] Adult Primary Care - [address] [phone] Carrington Calderon MD [address] [phone] Coordination Of Care Social History Tobacco Use [...] on file documented as of this encounter Results * (ABNORMAL) COMPLETE BLOOD COUNT AND DIFFERENTIAL (03/14/2023 15:19 EDT) [facility] WBC 18.08(H) 4.00 - 12.40 K/cmm 03/14/2023 16:23 [facility] RBC 4.40 3.86 - 5.04 M/cmm 03/14/2023 16:23 [facility] Hemoglobin 14.0 11.6 - 15.2 g/dL 03/14/2023 16:23 [facility] HCT 40.6 34.9 - 44.4 % 03/14/2023 16:23 [facility] MCV 92 81 - 98 fL 03/14/2023 16:23 [facility] MCH 31.8 26.7 - 33.3 pg 03/14/2023 16:23 [facility] MCHC 34.5 32.1 - 35.9 g/dL 03/14/2023 16:23 EDT [facility] RDW-CV 12.6 <14.7 % 03/14/2023 16:23 EDT [facility] RDW-SD 42.6 <50.4 fl 03/14/2023 16:23 EDT [facility] PLT 412(H) 141 - 377 K/cmm 03/14/2023 16:23 EDT [facility] MPV 9.3(L) 9.5 - 12.7 fL 03/14/2023 16:23 EDT [facility] Blood VENOUS BLOOD / Unknown Venipuncture / Unknown 03/14/2023 15:19 EDT 03/14/2023 15:19 EDT Carrington Calderon MD PACKAGES & DNA PROB E ORDERABLES Final Result Performing Organization Address [facility] de Phone Number [facility] [address] [place] [address] * (ABNORMAL) HEMOGLOBIN A1C (03/14/2023 15:19 EDT) Hemoglobin A1c 8.3(H) <5.7 % 03/14/2023 22:02 T [facility] Comment: Glycemic Status References: Normal: ??<5.7% Pre-Diabetes: ??5.7% - 6.4% Diagnostic of Diabetes: ??> or = 6.5% (if confirmed) Est Avg Glucose 192 mg/dL 22:02 T [facility] Comment:The eAG represents t he A1c result expressed as average glucose in mg/dL. Blood VENOUS BLOOD / Unknown Venipuncture / Unknown 03/14/2023 15:19 EDT 03/14/2023 15:19 EDT Carrington Calderon MD CHEMISTRY & BLOOD G ORDERABLES Final Result Performing Organization Address [facility]/ZIP Co de Phone Number [facility] [address] [place] [address] * (ABNORMAL) BASIC METABOLIC PANEL (BMP) (03/14/2023 15:19 EDT) Sodium 142 136 - 145 mmol/L 03/14[facility]2023 [facility] Potassium 4.2 3.5 - 5.0 mmol/L 03/14/2023 16:50 [facility] Chloride 103 96 - 110 mmol/L 03/14/2023 16:50 [facility] CO2 Total 25 22 - 32 mmol/L 03/14/2023 16:50 [facility] Anion Gap 14 5 - 14 mmol/L 03/14/2023 16:50 [facility] Glucose 45(LL) 70 - 99 mg/dl 03/14/2023 16:50 [facility] Calcium 9.9 8.5 - 10.5 mg/dL 03/14/2023 16:50 [facility] BUN 11 10 - 26 mg/dL 03/14/2023 16:50 [facility] Creatinine 0.99 0.52 - 1.04 mg/dL 03/14/2023 16:50 [facility] eGFR 75 >60 mL/min/1.73 m2 03/14/2023 16:50 [facility] Blood VENOUS BLOOD / Unknown Venipuncture / Unknown 03/14/2023 15:19 EDT 03/14/2023 15:19 EDT us Carrington Calderon MD CHEMISTRY & BLOOD G ORDERABLES Final Result [facility] [address] [place] [address] documented in this encounter Visit Diagnoses Diagnosis Type 2 diabetes mellitus with diabetic polyneuropathy, with long-term current use of insulin ([facility] Primary documented in this encounter Care Teams Reducer Relationship Specialty Start Date End Date Carrington Calderon MD 1 [facility] 1 [place] [phone] PCP - General Internal Medicine - Primary Care 12/09/20 Abigail Díaz Build And Release Manager 04/21/23 01/03/24 Carmelo Hendrickson Coordinator 12/01/23 Abigail Díaz Build And Release Manager 01/04/24 documented as of this encounter
--- OUTSIDE RECORDS SUMMARY | 2024-05-31 00:37 | XMS_ITS | Encounter Summary ---
Author Organization [facility] Address [address] [place] [address] Care Team Providers Care Percussion Welding Machine Operator Name Role Phone Carrington Calderon MD Primary Care Provi anders Reason for Visit * Reason Comments Med Change Request Encounter Details Date Type Department Care Team (Late st Contact Info) Description 01/06/2023 [facility] Adult Primary Care [facility] 1 [place], [place] [address] Staci Adhikari MD 1 [facility] Level [address] [place] [phone] Med Change Request Social History Tobacco [...] Primary documented in this encounter Care Teams Percussion Welding Machine Operator Relationship Specialty Start Date End Date Carrington Calderon MD 1 [facility] Level 1 [place] [phone] PCP - General Internal Medicine - Primary Care 12/09/20 documented as of this encounter
--- OUTSIDE RECORDS SUMMARY | 2024-05-31 00:37 | XMS_ITS | Encounter Summary ---
Author Organization [facility] Address [address] [place] [address] Care Team Providers Care Aquaculture Farm Manager Name Role Phone Carrington Calderon MD Primary Care Provi anders Abigail Díaz Unavailable Encounter Details Date Type Department Care Team (Late st Contact Info) Description 05/26/2023 Patient Outreach [facility] Adult Primary Care - [place] [address] [place], [place] [phone] Abigail Díaz Social History Tobacco Use Types [...] of Assessment Author No 10/02/2020 23:50 River Cavaanugh RN documented as of this encounter Mental Status * Because of a physical, mental, or emotional condition, do you have serious difficulty concentrating, remembering, or making decisions? (5 years old or older) Answer Entry Date Author No 10/02/2020 23:50 River Cavanaugh RN documented in this encounter Progress Notes * Abigail Díaz - 05/26/2023 1400 EST [facility] Project Coordinator Care Coordination Care management phone consult/visit as scheduled, Stella was not available when called by [facility]. catering and events manager left voicemail requesting call back to reschedule if needed [facility] sent MyCHart Letter, no further outreach will be conducted documented in this encounter Plan of Treatment Not on file documented as of this encounter Visit Diagnoses Not on filedocumented in this encounter Care Teams Aquaculture Farm Manager Relationship Specialty Start Date End Date Carrington Calderon MD 1 [facility] Level [address] [place] [phone] PCP - General Internal Medicine - Primary Care 12/09/20 Abigail Díaz Project Coordinator 04/21/23 01/03/24 documented as of this encounter
--- OUTSIDE RECORDS SUMMARY | 2024-05-31 00:37 | XMS_ITS | Encounter Summary ---
Author Organization [facility] Address [address] [place] [address] Care Team Providers Care Supervisor Tile And Mottle Name Role Phone Carrington Calderon MD Primary Care Provi anders Encounter Details Date Type Department Care Team (Late st Contact Info) Description 03/14/2023 15:15 EDT Phlebotomy Only [facility] - [address] [address] [facility] Type 2 diabetes mellitus with diabetic polyneuropathy, with long-term current use of insulin ([place]); Night sweats; Lymphocytosis Social History Tobacco Use [...] with long-term current use of insulin ([place]) SLIDE REQUEST Routine 03/14/2023 15:19 EDT Night sweats Lymphocytosis COMPLETE BLOOD COUNT AND DIFFERENTIAL Routine 03/14/2023 15:19 EDT Type 2 diabetes mellitus with diabetic polyneuropathy, with long-term current use of insulin ([facility]) HEMOGLOBIN A1C Routine 03/14/2023 15:19 EDT Type 2 diabetes mellitus with diabetic polyneuropathy, with long-term current use of insulin ([place]) BASIC METABOLIC PANEL (BMP) Routine 03/14/2023 15:19 EDT Type 2 diabetes mellitus with diabetic polyneuropathy, with long-term current use of insulin ([facility]) documented in this encounter Results * [...] and giant forms noted. 03/16/2023 12:25 EDT [facility] Blood VENOUS BLOOD / Unknown Venipuncture / Unknown 03/14/2023 15:19 EDT 03/16/2023 11:05 EDT Narrative [facility] - 03/16/2023 12:25 EDT -Absolute [...] Please consider longitudinal follow-up of this patient. us Carrington Calderon MD HEMATOLOGY & PF4 OR DERABLES Final Result [facility] [address] [place] [id number] * (ABNORMAL) DIFFERENTIAL, AUTOMATED MANUAL (03/14/2023 15:19 EDT) % Neutrophils 48.7 % 03/14/2023 17:23 EDT [facility] % Lymphocytes 44.3 % 03/14/2023 17:23 EDT [facility] % Monocytes 4.4 % 03/14/2023 17:23 EDT [facility] % Eosinophils 1.7 % 03/14/2023 17:23 EDT [facility] % Basophils 0.9 % [...] 03/14/2023 15:19 EDT us Carrington Calderon MD HEMATOLOGY & PF4 OR DERABLES Final Result [facility] [address] [place] [address] * (ABNORMAL) COMPLETE BLOOD COUNT AND DIFFERENTIAL (03/14/2023 15:19 EDT) WBC 18.08(H) 4.00 - 12.40 K/cmm 03/14/2023 16:23 [facility] RBC 4.40 3.86 - 5.04 M/cmm 03/14/2023 16:23 [facility] Hemoglobin 14.0 11.6 - 15.2 g/dL 03/14/2023 16:23 [facility] HCT 40.6 34.9 - 44.4 % 03/14/2023 16:23 [facility] MCV 92 81 - 98 fL 03/14/2023 16:23 [facility] MCH 31.8 26.7 [...] & DNA PROB E ORDERABLES Final Result [facility] [address] [place] [address] * (ABNORMAL) HEMOGLOBIN A1C (03/14/2023 15:19 EDT) Hemoglobin A1c 8.3(H) <5.7 % 03/14/2023 22:02 [facility] Comment: Glycemic Status References: Normal: ??<5.7% Pre-Diabetes: ??5.7% - 6.4% Diagnostic of Diabetes: ??> or = 6.5% (if confirmed) Est Avg Glucose 192 mg/dL 22:02 [facility] Comment:The eAG represents t he A1c result expressed as average glucose in mg/dL. Blood VENOUS BLOOD / Unknown Venipuncture / Unknown 03/14/2023 15:19 EDT 03/14/2023 15:19 EDT us Carrington Calderon MD CHEMISTRY & BLOOD G ORDERABLES Final Result [facility] [address] [place] [address] * (ABNORMAL) BASIC METABOLIC PANEL (BMP) (03/14/2023 15:19 EDT) Sodium 142 136 - 145 mmol/L 03/14/2023 16:50 [facility] Potassium 4.2 3.5 - 5.0 mmol/L 03/14/2023 16:50 [facility] Chloride 103 96 - 110 mmol/L 03/14/2023 16:50 [facility] CO2 Total 25 22 - 32 mmol/L 03/14/2023 16:50 [facility] Anion Gap 14 5 - 14 mmol/L 03/14/2023 16:50 [facility] Glucose 45(LL) 70 - 99 mg/dl 03/14/2023 16:50 [facility] Calcium 9.9 8.5 - 10.5 mg/dL 03/14/2023 16:50 [facility] BUN 11 10 - 26 mg/dL 03/14/2023 16:50 [facility] Creatinine 0.99 0.52 - 1.04 mg/dL 03/14/2023 16:50 [facility] eGFR 75 >60 mL/min/1.73 m2 03/14/2023 16:50 [facility] Blood VENOUS BLOOD / Unknown Venipuncture / Unknown 03/14/2023 15:19 EDT 03/14/2023 15:19 EDT us Carrington Calderon MD CHEMISTRY & BLOOD G ORDERABLES Final Result Performing Organization Address City/[facility]/ZIP Co de Phone Number [facility] [address] [place] [address] documented in this encounter Visit Diagnoses Diagnosis Type 2 diabetes mellitus with diabetic polyneuropathy, with long-term current use of insulin ([place]) Night sweats Generalized hyperhidrosis Lymphocytosis Lymphocytosis (symptomatic) documented in this encounter Care Teams Supervisor Tile And Mottle Relationship Specialty Start Date End Date Carrington Calderon MD 1 [facility] 1 [place] [phone] PCP - General Internal Medicine - Primary Care 12/09/20 documented as of this encounter
--- OUTSIDE RECORDS SUMMARY | 2024-05-31 00:37 | XMS_ITS | Encounter Summary ---
Author Organization [facility] Address [address] [place] [address] Care Team Providers Care Business Transformation Manager Name Role Phone Carrington Calderon MD Primary Care Provi anders Abigail Díaz Unavailable Reason for Visit * Reason Onset Date Comments Business Intelligence Director Message 05/26/2023 Encounter Details Date Type Department Care Team (Late st Contact Info) Description 05/26/2023 Telephone [facility] Adult Primary Care - [address] [address] Samantha Hough MD [address] [place] [phone] Business Intelligence Director Message Social History Tobacco Use Types Packs/Day [...] - Samantha Hough MD - 05/26/20232051 EST Business Intelligence Director Provider Documentation Returned to page to mother [...] - Samantha Hough MD - 05/26/20232022 EST Business Intelligence Director Provider Documentation 8:20 pm page to treating plant operator who states mother in law of patient calling due to concern of patient being sick and vomiting Revenue Officer called back x 2, direct to voicemail with no voicemail set up. Await additional calls. Samantha Hough MD documented in this encounter Plan of Treatment Not on file documented as of this encounter Visit Diagnoses Not on filedocumented in this encounter Care Teams Business Transformation Manager Relationship Specialty Start Date End Date Carrington Calderon MD 1 [facility] 1 [place] [phone] PCP - General Internal Medicine - Primary Care 12/09/20 Abigail Díaz Dental Technology Advisor 04/21/23 01/03/24 documented as of this encounter
--- OUTSIDE RECORDS SUMMARY | 2024-05-31 00:37 | XMS_ITS | Encounter Summary ---
Author Organization [facility] Address [address] [place] [address] Care Team Providers Care Roller Man Name Role Phone Carrington Calderon MD Primary Care Provi anders Reason for Visit * Reason Onset Date Comments Critical Value 03/14/2023 Encounter Details Date Type Department Care Team (Late st Contact Info) Description 03/14/2023 Telephone [facility] Adult Primary Care - [place] [address] [place], [place] [address] Carrington Calderon MD 1 [facility] Level 1 [place] [phone] Critical Value Social History Tobacco [...] minutes. She was instructed to call the building construction superintendent MD if it was not going up or if she still felt symptomatic. Confirmed that she did take her Jardiance and Janvia today, but did not take her afternoon Novolog. BENITA THOMPSON RN * Telephone Encounter - Karen Trujillo - 03/14/2023 1652 EDT Non Clinical Staff notified with Critical [...] on filedocumented in this encounter Care Teams Roller Man Relationship Specialty Start Date End Date Carrington Calderon MD 1 [facility] 1 [place] [phone] PCP - General Internal Medicine - Primary Care 12/09/20 documented as of this encounter
--- OUTSIDE RECORDS SUMMARY | 2024-05-31 00:37 | XMS_ITS | Encounter Summary ---
Author Organization [facility] Address [address] [place] [address] Care Team Providers Care Sql Programmer Analyst Name Role Phone Carrington Calderon MD Primary Care Provi anders Abigail Díaz Unavailable [phone] Reason for Visit * Reason Comments Follow-up EST/ Gastroparesis/ Notes in scans * Consult (Routine) - Receiving Office to Obtain Authorization Specialty Diagnoses / Procedures Referred By Kit goode Referred To Contact Diagnoses Gastroparesis Dale Collier MD [address] [place] [place] [address] [place] [address] Phone: tel: fax: [facility] [address] [address] Phone: tel: fax: Referral ID Status Reason Start Date Expiration Date Visits Requested Visits Authorized [id number] Receiving Office to Obtain Authorization Specialty Services Required 1 1 Encounter Details Date Type Department Care Team (Late st Contact Info) Description 05/13/2023 11:00 EST Office Visit [facility] [address] [phone] Scott Arzate MD [address] [place] [address], Level [address] [place] [phone] Cyclic vomiting syndrome (Primary Dx) Social History [...] slept in a snf (including now)? No 11/17/2022 Interpersonal Safety Answer [...] EDT documented in this encounter Functional Status * [...] Entry Date Author No 10/02/2020 23:50 EDT [place], Krist in, RN documented in this encounter Ordered Prescriptions Prescription Sig Dispense Quantity Refills Last Filled Start Date End Date SUMAtriptan (IMITREX) 20 mg/actuation nasal spray Instill 1 [place] into right nostril as needed for Migraine. 6 Each 1 05/13/2023 4 documented in this encounter Progress Notes [...] vomiting documented in this encounter Care Teams Sql Programmer Analyst Relationship Specialty Start Date End Date Carrington Calderon MD 1 [facility] Level 1 [place] [phone] PCP - General Internal Medicine - Primary Care 12/09/20 Abigail Díaz Drill Grinder 04/21/23 01/03/24 documented as of this encounter
--- OUTSIDE RECORDS SUMMARY | 2024-05-31 00:37 | XMS_ITS | Encounter Summary ---
Author Organization [facility] Address [address] [place] [address] Care Team Providers Care Lithographer Apprentice Name Role Phone Carrington Calderon MD Primary Care Provi anders Abigail Díaz Unavailable [phone] Carmelo Hendrickson Unavailable Unavailable Abigail Díaz Unavailable Reason for Visit * Reason Comments Medications Refill Encounter Details Date Type Department Care Team (Late st Contact Info) Description 03/31/2023 Refill [facility] Adult Primary Care - [address] [address] Carrington Calderon MD 1 [facility] Level 1 [place] [phone] Medications Refill Social History Tobacco Use Types [...] Refills Last Filled Start Date End Date NOVOLOG FLEXPEN U-100 INSULIN 100 unit/mL (3 mL) injectable penIndications:Typ e 2 diabetes mellitus with diabetic polyneuropathy, with long-term current use of insulin ([facility]) INJECT 12 UNITS THREE TIMES DAILY [...] 12 UNITS THREE TIMES DAILY WITH MEALS [facility] [address] [place] [address] [employer] Confirmed Pharmacy? Yes Patient out of medication? Unknown How many pills does patient have left? unknown Last Refill Date: 11/18/22 Refills left? (explain exceptions requiring early refill) No Recent Visits Date Type Provider Dept 11/17/22 Office Visit Carrington Calderon MD [facility] [...] Provider Dept 06/27/23 Appointment [facility] [...] current use of insulin ([facility]) documented in this encounter Care Teams Lithographer Apprentice Relationship Specialty Start Date End Date Carrington Calderon MD 1 [facility] 1 [place] [phone] PCP - General Internal Medicine - Primary Care 12/09/20 Abigail Díaz Permastone Mechanic 04/21/23 01/03/24 Carmelo Hendrickson Coordinator 12/01/23 Abigail Díaz Permastone Mechanic 01/04/24 documented as of this encounter
--- OUTSIDE RECORDS SUMMARY | 2024-05-31 00:37 | XMS_ITS | Encounter Summary ---
Author Organization [facility] Address [address] [place] [address] Care Team Providers Care Structural Steel Detailer Name Role Phone Carrington Calderon MD Primary Care Provi anders Reason for Visit * Reason Comments Medication Management Encounter Details Date Type Department Care Team (Late st Contact Info) Description 12/17/2022 14:45 EDT Telemedicine [facility] Adult Primary Care - [address] [phone] Carrington Calderon MD 1 [facility] Level 1 [place] [phone] Type 2 diabetes mellitus with diabetic polyneuropathy, with long-term current use of insulin ([facility]) (Primary Dx); Anxiety and depression; Gastroparesis; Catamenial [...] of Assessment Author No 10/02/2020 23:50 EDT [place], Krist in, RN * Are you blind or [...] Refills Last Filled Start Date End Date ZOLMitriptan (ZOMIG) 2.5 mg tabletIndications :Catamenial disorder,Migraine with aura and without status migrainosus, not intractable,Cycli c vomiting syndrome Take 1 Tablet by mouth 2 times daily. BID starting 2 days prior to onset of menses, continuing for a total of 5 days (10 doses) 10 Tablet 3 prochlorperazine (COMPAZINE) 10 mg tabletIndications :Cyclic vomiting syndrome Take 1 Tablet by mouth every 8 hours as needed for Nausea. 8 Tablet 3 prochlorperazine (COMPAZINE) 25 mg suppositoryIndica tions:Cyclic vomiting syndrome Place 1 Suppository rectally every 12 hours as needed for Nausea. 6 Suppository 11 3 omeprazole (PRILOSEC) 20 mg capsuleIndication s:Gastroparesis Take 1 Capsule by mouth daily. 90 Capsule 3 3 DULoxetine 40 mg capsule,delayed release(DR/EC)Ind ications:Anxiety and depression Take 40 mg by mouth daily. 30 Capsule 11 3 01/18/20 24 documented in this encounter Progress Notes * Carrington Calderon MD - 12/17/2022 5424 EDT Primary Care Video Visit Assessment & Plan Diagnoses and all orders for this visit: Type 2 diabetes mellitus with diabetic polyneuropathy, with long-term current use of insulin ([facility]) ([facility]): No change made today. Will inquire regarding [...] current medications and allergies ROS - See [facility] TELEMEDICINE VIDEO VISIT Today's visit was provided through telemedicine video conferencing: The location of the patient : Home The location of the provider: Office The following staff and their role did participate in today's encounter visit: Carrington Calderon MD Objective There were no vitals taken for this visit. Physical Exam * Jose Luis Wilson - 12/17/2022 8684 EDT The concept of ???Telemedicine?? has been [...] Home Patient location state: Visit Location State: [place] The location of the provider: Office Provider location state: Visit Location State: [place] The following people and their roles were present for today's visit: Appointment Provider: Carrington Calderon MD Sopheab Miles documented in this encounter Plan of Treatment Not on file documented as of this encounter Visit Diagnoses Diagnosis Type 2 diabetes mellitus with diabetic polyneuropathy, with long-term current use of insulin ([facility])- Primary Anxiety and depression Dysthymic disorder [...] documented as of this encounter Care Teams Structural Steel Detailer Relationship Specialty Start Date End Date Carrington Calderon MD 1 [facility] 1 [place] [phone] PCP - General Internal Medicine - Primary Care 12/09/20 documented as of this encounter
--- OUTSIDE RECORDS SUMMARY | 2024-05-31 00:37 | XMS_ITS | Encounter Summary ---
Author Organization [facility] Address [address] [place] [address] Care Team Providers Care Lead Mechanical Engineer Name Role Phone Carrington Calderon MD Primary Care Provi anders Abigail Díaz Unavailable [phone] Reason for Visit * Reason Comments Nicotine Dependence Encounter Details Date Type Department Care Team (Late st Contact Info) Description 05/24/2023 Community Health Team [facility] Adult Primary Care - [place] 1 [place], [place] [id number] Kylah Wilson Social History Tobacco Use Types [...] filedocumented in this encounter Care Teams Lead Mechanical Engineer Relationship Specialty Start Date End Date Carrington Calderon MD 1 [facility] 1 [place] [address] PCP - General Internal Medicine - Primary Care 12/09/20 Abigail Díaz Senior Officer 04/21/23 01/03/24 documented as of this encounter
--- OUTSIDE RECORDS SUMMARY | 2024-05-31 00:37 | XMS_ITS | Encounter Summary ---
Author Organization [facility] Address [address] [place] [address] Care Team Providers Care Avaya Engineer Name Role Phone Carrington Calderon MD Primary Care Provi anders Abigail Díaz Unavailable Carmelo Hendrickson Unavailable Unavailable Abigail Díaz Unavailable [phone] Reason for Visit * Reason Comments Medications Refill Encounter Details Date Type Department Care Team (Late st Contact Info) Description 01/04/2023 Refill [facility] Adult Primary Care - [address] [address] Carrington Calderon MD 1 [facility] Level 1 [place] [phone] Medications Refill Social History Tobacco Use Types [...] Chronic midline low back pain without sciatica TAKE [...] HOURS NEEDED FOR PAIN. DAILY MAX 200MG [facility] [address] [place] [address] Confirmed Pharmacy? Yes Patient out of medication? Unknown Last Refill Date: 11/17/22 Refills left? (explain exceptions requiring early refill) No Recent Visits Date Type Provider Dept 11/17/22 Office Visit Carrington Calderon MD [facility] Adult [place] Care 09/02/22 Office Visit Nimisha Clifton, GUSTAVO [facility] Adult Prim Care 05/20/22 Office Visit Rachel Stein PA-C [facility] Adult Prim Care Showing recent visits within past 540 days with a meds authorizing provider and meeting all other requirements Future Appointments Date Type Provider Dept 03/16/23 Appointment Carrington Calderon MD [facility] [...] documented as of this encounter Care Teams Avaya Engineer Relationship Specialty Start Date End Date Carrington Calderon MD 1 [facility] 1 [place] [address] PCP - General Internal Medicine - Primary Care 12/09/20 Abigail Díaz Automatic Pinsetter Mechanic 04/21/23 01/03/24 Carmelo Hendrickson Coordinator 12/01/23 Abigail Díaz Automatic Pinsetter Mechanic 01/04/24 documented as of this encounter
--- OUTSIDE RECORDS SUMMARY | 2024-05-31 00:37 | XMS_ITS | Encounter Summary ---
Author Organization [facility] Address [address] [place] [address] Care Team Providers Care Lcac Operator Name Role Phone Carrington Calderon MD Primary Care Provi anders BarahonaJameyClayAmrita Unavailable Reason for Referral * Consult (Routine/Next Available) - Closed Specialty Diagnoses / Procedures Referred By Kit goode Referred To Contact Diagnoses Carrington Rothman MD Phone: tel: fax: [address] [address] Phone: tel: fax: Referral ID Status Reason Start Date Expiration Date V isits Requested Visits Authorized [id number] Closed Specialty Services Required 04/21/2023 1 0 Question Answer Reason for Request: smoking cessation * Referral (Routine/Next Available) - Authorization Not Required Specialty Diagnoses / Procedures Referred By Kit goode Referred To Contact Multidisciplinary Diagnoses Carrington Rothman MD Phone: tel: fax: [address], [address] [place] [address] Phone: tel: fax: Referral ID Status Reason Start Date Expiration Date Visits Requested Visits Authorized [id number] Authorization Not Required Specialty Services Required 04/21/20 23 1 1 Question Answer Reason for Request: tobacco cessation support Encounter Details Date Type Department Care Team (Late st Contact Info) Description 04/21/[address] [facility] Adult Primary Care [address] [address] Bre Amrita Smoking (Primary Dx) Social History [...] medical appointments or from getting medications? No 06/1 09/2022 In the past 12 months, has l [...] * Amrita Asencio - 04/21/2023 1104 EST [facility] Care Management Assessment and Care Plan Referral Reason: interested in therapy Pertinent medical and behavioral health issues: ENT Chronic left ear pain ?? Infectious Disease Skin infection ?? Endocrine/Metabolic Pannus, abdominal Type 2 diabetes mellitus with diabetic polyneuropathy, with long-term current use of insulin (HCC-CMS) ([facility]) ?? Gastrointestinal/Abdominal Gastroparesis ?? Psychiatric Anxiety and depression ?? Musculoskeletal Chronic midline low back pain without sciatica Neuropathic diabetic ulcer of foot (HCC-CMS) Family history of rheumatoid arthritis ?? Neurological [...] - BCB* ASUNCION LUO 05/08/1986 Male Spouse [id number] 02/14/22 [id number] [address], [place] [address] 2. MEDICAID ACO * CRISTY LUO 1985 Female Self [id number] 06/06/22 [address] Any gaps or barriers with healthcare insurance coverage: No DME: scooter, due to amputee diabetic sensor DME vendor: [employer] secondary insurance covers supplies Barriers to using [...] today within 1 week and will contact manager primary care if additional assistance is needed as discussed. 2. stella will schedule a counseling appointment with at least one of the counselors provided today within 1 week and will follow up with manager primary care at next scheduled follow up on within [...] marijuana use to combat anxiety symptoms manager of internal audit reviewed current mental health resources with Stella [...] AMB CONS/FOLLOW UP OUTPATIENT CARE MANAGEMENT - [facility] Outpatient Referral Routine Consult Smoking Expected: 04/28/2023 (Approximate), Expires: 04/21/2024 AMB CONS/FOLLOW UP SMOKING CESSATION PROGRAM Outpatient Referral Routine Consult Smoking Expected: 04/28/2023 (Approximate), Expires: 04/21/2024 documented as of this encounter Visit Diagnoses Diagnosis Smoking- Primary Tobacco use disorder documented in this encounter Care Teams Lcac Operator Relationship Specialty Start Date End Date Carrington Calderon MD 1 [facility] Level 1 [place] [address] PCP - General Internal Medicine - Primary Care 12/09/20 Amrita Asencio Archivist Military History 04/21/23 01/03/24 documented as of this encounter
--- OUTSIDE RECORDS SUMMARY | 2024-05-31 00:37 | XMS_ITS | Encounter Summary ---
Author Organization [facility] Address [address] [place] [address] Care Team Providers Care Amphibian Crewmember Name Role Phone Carrington Calderon MD Primary Care Provi anders Abigail Díaz Unavailable [phone] Reason for Visit * Reason Comments Nicotine Dependence Encounter Details Date Type Department Care Team (Late st Contact Info) Description 05/17/2023 Community Health Team [facility] Adult Primary Care - [place] 1 [place], [place] [phone] Kylah Wilson Social History Tobacco Use Types [...] on filedocumented in this encounter Care Teams Amphibian Crewmember Relationship Specialty Start Date End Date Carrington Calderon MD 1 [facility] 1 [place] [address] PCP - General Internal Medicine - Primary Care 12/09/20 Abigail Díaz Certified Phlebotomy Technician 04/21/23 01/03/24 documented as of this encounter
--- OUTSIDE RECORDS SUMMARY | 2024-05-31 00:37 | XMS_ITS | Encounter Summary ---
Author Organization [facility] Address [address] [place] [address] Care Team Providers Care Printing Pressman Name Role Phone Carrington Calderon MD Primary Care Provi anders Reason for Visit * Reason Onset Date Comments Coordination Of Care 03/30/2023 Encounter Details Date Type Department Care Team (Late st Contact Info) Description 03/30/2023 Telephone [facility] Adult Primary Care [facility] 1 [place], [place] [address] Carrington Calderon MD 1 [facility] Level 1 [place] [address] Coordination Of Care Social History [...] long-term current use of insulin ([facility]) ([facility]) documented in this encounter Care Teams Printing Pressman Relationship Specialty Start Date End Date Carrington Calderon MD 1 [facility] 1 [place] [address] PCP - General Internal Medicine - Primary Care 12/09/20 documented as of this encounter
--- OUTSIDE RECORDS SUMMARY | 2024-05-31 00:37 | XMS_ITS | Encounter Summary ---
Author Organization [facility] Address [address] [place] [address] Care Team Providers Care Nonfarm Animal Caretaker Name Role Phone Carrington Calderon MD Primary Care Provi anders Abigail Díaz Unavailable Carmelo Hendrickson Unavailable Unavailable Abigail Díaz Unavailable Encounter Details Date Type Department Care Team (Late st Contact Info) Description 03/18/2023 Orders Only [facility] Adult Primary Care - [address] [phone] Ratna Latham Abnormal TSH Social History Tobacco [...] <1.0 <=1.3 TSI index 03/25/2023 15:55 EDT [facility] Comment: Test Performed by: [facility] - [address] [address] Collections Agent: Wiley Fry M.D. Ph.D.; CLIA# [id number] Blood VENOUS BLOOD / Unknown Venipuncture / Unknown 03/14/2023 15:19 EDT 03/18/2023 16:07 EDT us Carrington Calderon MD CHEMISTRY & BLOOD G ORDERABLES Final Result Performing Organization Address City/State/[facility] Co de Phone Number [facility] [address] [place] [address] documented in this encounter Visit Diagnoses Diagnosis Abnormal TSH Other abnormal clinical finding documented in this encounter Care Teams Nonfarm Animal Caretaker Relationship Specialty Start Date End Date Carrington Calderon MD 1 [facility] 1 [place] [phone] PCP - General Internal Medicine - Primary Care 12/09/20 Abigail Díaz Industrial Psychology Teacher 04/21/23 01/03/24 Carmelo Hendrickson Coordinator 12/01/23 Abigail Díaz Industrial Psychology Teacher 01/04/24 documented as of this encounter
--- OUTSIDE RECORDS SUMMARY | 2024-05-31 00:37 | XMS_ITS | Encounter Summary ---
Author Organization [facility] Address [address] [place] [address] Care Team Providers Care Recording Clerk Name Role Phone Carrington Calderon MD Primary Care Provi anders Reason for Referral * Referral (Routine/Next Available) - Specialty Report Received Specialty Diagnoses / Procedures Referred By Kit goode Referred To Contact Multidisciplinary Diagnoses Adjustment reaction with anxiety and depression Carrington Calderon MD Phone: tel: fax: [facility] [address], [address] [place] [address] Phone: tel: fax: Referral ID Status Reason Start Date Expiration Date Visits Requested Visits Authorized [id number] Specialty Report Received Specialty Services Required 3 1 1 Question Answer Reason for Request: community therapist Reason for Visit * Reason Onset Date Comments Referral Request 03/28/2023 Encounter Details Date Type Department Care Team (Late st Contact Info) Description 03/28/2023 Telephone [facility] Adult Primary Care - [place] 1 [place], [place] [phone] Carrington Calderon MD 1 [facility] Level 1 [place] [phone] Referral Request Social History Tobacco Use Types [...] no barriers noted. * Telephone Encounter - [place], Carrington Wiley, MD - 03/29/2023 1100 EDT According to my most recent discussions with Stella, she was interested in finding a therapist in the community for long-term therapy, rather than the short-term targeted therapy available through our [facility]. With this in mind, I have signed a medical home/care management referral so that she can be connected with a social media community manager to help her through this process. If I am mistaken and she is interested in short-term therapy through this office, happy to sign a [facility] referral. Please double check with her. Thanks. [...] AMB CONS/FOLLOW UP OUTPATIENT CARE MANAGEMENT - [facility] Outpatient Referral Routine/Next Available Adjustment reaction with anxiety and depression Expected: 04/05/2023 (Approximate), Expires: 03/29/2024 documented as of this encounter Visit Diagnoses Diagnosis Adjustment reaction with anxiety and depression- Primary Adjustment disorder with mixed anxiety and depressed mood documented in this encounter Care Teams Recording Clerk Relationship Specialty Start Date End Date Carrington Calderon MD 1 [facility] 1 [place] [address] PCP - General Internal Medicine - Primary Care 12/09/20 documented as of this encounter
--- OUTSIDE RECORDS SUMMARY | 2024-05-31 00:37 | XMS_ITS | Encounter Summary ---
Author Organization [facility] Address [address] [place] [address] Care Team Providers Care Die Maker Trim Name Role Phone Carrington Calderon MD Primary Care Provi anders Reason for Referral * Consult (Routine/Next Available) - Specialty Report Received Specialty Diagnoses / Procedures Referred By Kit goode Referred To Contact Endocrinology Diagnoses Type 2 diabetes mellitus with diabetic polyneuropathy, with long-term current use of insulin ([facility]) Fermin Skinner MD Phone: tel: fax: Harjinder Azevedo DO Phone: tel: fax: Referral ID Status Reason Start Date Expiration Date Visits Requested Visits Authorized [id number] Specialty Report Received Specialty Services Required 04/14/2023 1 1 Question Answer Reason for Request: Type II DM Reason for Visit * Reason Onset Date Comments Referral Request 04/14/2023 Encounter Details Date Type Department Care Team (Late st Contact Info) Description 04/14/2023 Telephone [facility] Adult Primary Care - [place] 1 [place], [place] [phone] Carrington Calderon MD 1 [facility] Level 1 [place] [phone] Referral Request Social History Tobacco Use Types [...] EST Spoke with pt who reports her human resources records clerk recommended she see Dr Azevedo for diabetes. Referral pended for review. * Telephone Encounter - Misty Barahona - 04/14/2023 1308 EST Stella came up to the front desk team member today (Spouse has an appointment) and is requesting a referral to Nathanael Azevedo, Dry Sand Molder. documented in this encounter Plan of Treatment Scheduled Referrals Name Type Priority Associated Diagnoses Order Schedule AMB CONS/FOLLOW UP ENDOCRINOLOGY Outpatient Referral Routine/Next Available Type 2 diabetes mellitus with diabetic polyneuropathy, with long-term current use of insulin ([facility]) ([facility]) Expected: 04/21/2023 (Approximate), Expires: 04/14/2024 documented as of this encounter Visit Diagnoses Diagnosis Type 2 diabetes mellitus with diabetic polyneuropathy, with long-term current use of insulin ([facility]) ([facility])- Primary documented in this encounter Care Teams Die Maker Trim Relationship Specialty Start Date End Date Carrington Calderon MD [address] [facility] 1 [place] [phone] PCP - General Internal Medicine - Primary Care 12/09/20 documented as of this encounter
--- OUTSIDE RECORDS SUMMARY | 2024-05-31 00:37 | XMS_ITS | Encounter Summary ---
Author Organization [facility] Address [address] [place] [address] Care Team Providers Care Linen Room Attendant Name Role Phone Carrington Calderon MD Primary Care Provi anders Reason for Visit * Reason Comments Med Change Request Encounter Details Date Type Department Care Team (Late st Contact Info) Description 12/20/2022 Refill [facility] Adult Primary Care [facility] 1 [place], [place] [address] Carrington Calderon MD 1 [facility] Level 1 [place] [address] Med Change Request Social History [...] 1215 EDT prochlorperazine (COMPAZINE) 25 mg suppository [[id number]] ?? Order Details Dose: 25 mg Route: [...] vomiting documented in this encounter Care Teams Linen Room Attendant Relationship Specialty Start Date End Date Carrington Calderon MD 1 [facility] 1 [place] [address] PCP - General Internal Medicine - Primary Care 12/09/20 documented as of this encounter
--- OUTSIDE RECORDS SUMMARY | 2024-05-31 00:38 | XMS_ITS | Encounter Summary ---
Author Organization [facility] Address [address] [place] [address] Care Team Providers Care Outcomes Analyst Name Role Phone Carrington Calderon MD Primary Care Provi anders Reason for Visit * Reason Comments Medications Refill Encounter Details Date Type Department Care Team (Late st Contact Info) Description 02/28/2022 Refill [facility] Adult Primary Care [facility] 1 [place], [place] [phone] Kylah Weiner MD 1 [facility] Level 1 [place] [address] Medications Refill Social History Tobacco Use Types Packs/Day Years Used Date Smoking Tobacco: Former Cigarettes 0.3 13.6 S tarted: 11/10/2010 Smokeless Tobacco: Never [...] or threaten to hurt you? Never 01/13/2022 Comments No Sex and Gender Information Value [...] Refills Last Filled Start Date End Date omeprazole (PRILOSEC) 20 mg capsule Take 1 capsule by mouth daily. 90 capsule 3 03/02/2022 3 documented in this encounter Miscellaneous Notes * Telephone Encounter - Jesi Love RN - 03/02/2022 0852 EDT Medication(s) Requested: omeprazole Preferred Pharmacy: [facility] Is patient out of medication? Unknown [...] documented as of this encounter Care Teams Outcomes Analyst Relationship Specialty Start Date End Date Carrington Calderon MD 1 [facility] Level 1 [place] [address] PCP - General Internal Medicine - Primary Care 12/09/20 documented as of this encounter
--- OUTSIDE RECORDS SUMMARY | 2024-05-31 00:38 | XMS_ITS | Encounter Summary ---
Author Organization [facility] Address [address] [place] [address] Care Team Providers Care Trim Stencil Maker Name Role Phone Carrington Calderon MD Primary Care Provi anders Abigail Díaz Unavailable Carmelo Hendrickson Unavailable Unavailable Abigail Díaz Unavailable Reason for Visit * Reason Onset Date Comments Appointment Related 03/17/2022 Encounter Details Date Type Department Care Team (Late st Contact Info) Description 03/17/2022 Telephone [facility] Endocrinology - [facility] [address] [place] [address] Zulma Cross, GUSTAVO [address] [facility] [address] [place] [address] Appointment Related Social History Tobacco [...] Date of Assessment Author No 10/02/2020 23:50 Rivre Cavanaugh RN * Do you have serious [...] anytime after 06/16/22 Recall Letter Sent thru [employer] Also: Left voicemail to schedule 6 month Follow Up appointment with Dr. Eryn Mims Patient is due anytime after 09/14/22 Recall Letter Sent thru [employer] Please schedule both appointments documented in this encounter Plan of Treatment Not on file documented as of this encounter Visit Diagnoses Not on filedocumented in this encounter Care Teams Trim Stencil Maker Relationship Specialty Start Date End Date Carrington Calderon MD [address] [place] [address] 1 [place] [address] PCP - General Internal Medicine - Primary Care 12/09/20 Abigail Díaz Hot Plate Press Operator 04/21/23 01/03/24 Carmelo Hendrickson Coordinator 12/01/23 Abigail Díaz Hot Plate Press Operator 01/04/24 documented as of this encounter
--- OUTSIDE RECORDS SUMMARY | 2024-05-31 00:38 | XMS_ITS | Encounter Summary ---
Author Organization [facility] Address [address] [place] [address] Care Team Providers Care Washing Machine Assembler Name Role Phone Carrington Calderon MD Primary Care Provi anders Reason for Visit * Reason Comments Medications Refill Encounter Details Date Type Department Care Team (Late st Contact Info) Description 10/15/2022 Refill [facility] Adult Primary Care [facility] 1 [place], [place] [phone] Carrington Calderon MD 1 [facility] Level 1 [place] [address] Medications Refill Social History Tobacco [...] No 10/02/2020 23:50 EDRiver Srivastava RN * Do you have difficulty dressing [...] polyneuropathy associated with type 2 diabetes mellitus ([facility]) TAKE 1 CAPSULE BY MOUTH IN THE MORNING AND 3 IN THE EVENING 120 Capsule 10/15/2022 documented in this encounter Miscellaneous Notes [...] documented as of this encounter Care Teams Washing Machine Assembler Relationship Specialty Start Date End Date Carrington Calderon MD 1 [facility] 1 [place] [phone] PCP - General Internal Medicine - Primary Care 12/09/20 documented as of this encounter
--- OUTSIDE RECORDS SUMMARY | 2024-05-31 00:38 | XMS_ITS | Encounter Summary ---
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 PLAN: procurement services manager reviewed current mental health resources with Stella including local counseling options within their insurance network; online counseling platforms; online therapist directories; self-help resources; support groups; and local and national mental health crisis information. AMRITA ASENCIO 01/13/2022 15:38 documented in this encounter Plan of Treatment Not on file documented as of this encounter Visit Diagnoses Not on filedocumented in this encounter Care Teams Talent Partner Relationship Specialty Start Date End Date Carrington Calderon MD 1 [facility] Level 1 [place] [phone] PCP - General Internal Medicine - Primary Care 12/09/20 documented as of this encounter
--- OUTSIDE RECORDS SUMMARY | 2024-05-31 00:38 | XMS_ITS | Encounter Summary ---
Author Organization [facility] Address [address] [place] [address] Care Team Providers Care Conveyor Maintenance Mechanic Name Role Phone Carrington Calderon MD Primary Care Provi anders Abigail Díaz Unavailable Carmelo Hendrickson Unavailable Unavailable Abigail Díaz Unavailable Encounter Details Date Type Department Care Team (Late st Contact Info) Description 01/26/2022 Orders Only [facility] Adult Primary Care - [address] [phone] Carrington Calderon MD 1 [facility] Level 1 [place] [address] Type 2 diabetes mellitus with diabetic polyneuropathy, with long-term current use of insulin ([facility]) ([facility]) (Primary Dx) Social History Tobacco [...] Author No 10/02/2020 23:50 WANDAT River Francisco in, RN * Are you [...] documented in this encounter Progress Notes * Carrignton Calderon MD - 01/26/2022 0815 EDT All set. Thanks. documented in this encounter Plan of Treatment Not on file documented as of this encounter Visit Diagnoses Diagnosis Type 2 diabetes mellitus with diabetic polyneuropathy, with long-term current use of insulin ([facility])- Primary documented in this encounter Care Teams Conveyor Maintenance Mechanic Relationship Specialty Start Date End Date Carrington Calderon MD 1 [facility] 1 [place] [phone] PCP - General Internal Medicine - Primary Care 12/09/20 Abigail Díaz Mandate Retail Service Merchandiser 04/21/23 01/03/24 Carmelo Hendrickson Coordinator 12/01/23 Abigail Díaz Mandate Retail Service Merchandiser 01/04/24 documented as of this encounter
--- OUTSIDE RECORDS SUMMARY | 2024-05-31 00:38 | XMS_ITS | Encounter Summary ---
Author Organization [facility] Address [address] [place] [address] Care Team Providers Care Edger Liner Name Role Phone Carrington Calderon MD Primary Care Provi anders Reason for Visit * Reason Onset Date Comments Medication Problem 01/14/2022 Encounter Details Date Type Department Care Team (Late st Contact Info) Description 01/14/2022 Telephone [facility] Adult Primary Care [facility] 1 [place], [place] [address] Carrington Calderon MD 1 [facility] Level 1 [place] [address] Medication Problem Social History Tobacco [...] - 01/15/2022 0636 EDT Call to Luda MARCANO with Dx code M54.50, G89.29. * Telephone Encounter - Kamini Raya - 01/14/2022 1556 EDT Barbara Pharmacist-Deonna called in regards to prescription for Tramadol sent 01/12/2022. She needs a diagnosis code before they can fill script. documented in this encounter Plan of Treatment Not on file documented as of this encounter Visit Diagnoses Not on filedocumented in this encounter Care Teams Edger Liner Relationship Specialty Start Date End Date Carrington Calderon MD 1 [facility] 1 [place] [address] PCP - General Internal Medicine - Primary Care 12/09/20 documented as of this encounter
--- OUTSIDE RECORDS SUMMARY | 2024-05-31 00:38 | XMS_ITS | Encounter Summary ---
Author Organization [facility] Address [address] [place] [address] Care Team Providers Care Document Control Supervisor Name Role Phone Carrington Calderon MD Primary Care Provi anders Reason for Visit * Reason Onset Date Comments No Show 04/02/2022 Encounter Details Date Type Department Care Team (Late st Contact Info) Description 04/02/2022 Telephone [facility] Adult Primary Care [facility] 1 [place], [place] [address] Carrington Calderon MD 1 [facility] Level 1 [place] [address] No Show Social History Tobacco [...] Date Record ed How often does anyone, benynnick chivo family, hit, punch or physically hurt [...] of Assessment Author No 10/02/2020 23:50 River Cavnaaugh RN * Because of a physical, mental, [...] Telephone Encounter - Kamini Raya - 04/02/2022 0920 EDT 04/01/2022 Patient was a no show for a f/u for chronic pain/DM with Dr. Calderon. Called patient, but VM was full and could not leave a message. Also sent a Appercode message to contact the office to reschedule missed appt if she would like. 1st no show letter sent. Patient has had 2 missed no show appointments in last 12 months. 04/01/2022, 12/21/2021 and 09/28/2021. documented in this encounter Plan of Treatment Not on file documented as of this encounter Visit Diagnoses Not on filedocumented in this encounter Care Teams Document Control Supervisor Relationship Specialty Start Date End Date Carrington Calderon MD 1 [facility] Level 1 [place] [address] PCP - General Internal Medicine - Primary Care 12/09/20 documented as of this encounter
--- OUTSIDE RECORDS SUMMARY | 2024-05-31 00:38 | XMS_ITS | Encounter Summary ---
Author Organization [facility] Address [address] [place] [address] Care Team Providers Care Warehouse Forklift Operator Name Role Phone Carrington Calderon MD Primary Care Provi anders Reason for Visit * Reason Comments Diabetes * Consult (See Order Priority) - Order Cancelled Specialty Diagnoses / Procedures Referred By Kit goode Referred To Contact Endocrinology Diagnoses Type 2 diabetes mellitus with diabetic polyneuropathy, with long-term current use of insulin ([facility]) Carrington Calderon MD Phone: tel: fax: [facility] Endocrinology [address] [address] Phone: tel: fax: Referral ID Status Reason Start Date Expiration Date Visits Requested Visits Authorized [id number] Order Cancelled Specialty Services Required 01/29/2022 1 1 Encounter Details Date Type Department Care Team (Late st Contact Info) Description 03/15/2022 8:40 EDT Telemedicine [facility] Endocrinology [address] [address] Eryn Mims DO [address] [place] [address] [address] [place] [address] Type 2 diabetes mellitus with diabetic polyneuropathy, with long-term current use of insulin ([facility]) (Primary Dx) Social History Tobacco Use [...] Refills Last Filled Start Date End Date SITagliptin (JANUVIA) 50 mg tablet Take 1 Tablet by mouth daily. 90 Tablet 3 03/15/2022 11/17/2022 flash glucose sensor (FREESTYLE VIGNESH 2 SENSOR) kit 1 Device by [facility] (non-drug; combo route) route continuous. 6 [...] 0 ??? blood glucose test strips Brand: [employer]Across Precision Cristo, use as directed if Freestyle [...] polyneuropathy, with long-term current use of insulin ([facility])- Primary documented in this encounter Discontinued Medications Medication Sig Discontinue Reason Start Date End Da te flash glucose sensor (FREESTYLE VIGNESH 2 SENSOR) kit 1 Device by [facility] (non-drug; combo route) route continuous. Reorder 10/01/2020 03/15/2022 SITagliptin (JANUVIA) 50 mg tablet Take 1 Tab by mouth daily. Reorder 09/02/2020 03/15/2022 documented as of this encounter Care Teams Warehouse Forklift Operator Relationship Specialty Start Date End Date Carrington Calderon MD 1 [facility] 1 [place] [address] PCP - General Internal Medicine - Primary Care 12/09/20 documented as of this encounter
--- OUTSIDE RECORDS SUMMARY | 2024-05-31 00:38 | XMS_ITS | Encounter Summary ---
Author Organization [facility] Address [address] [place] [address] Care Team Providers Care Safety Deposit Supervisor Name Role Phone Carrington Calderon MD Primary Care Provi anders Reason for Visit * Reason Onset Date Comments Prior Auth, Medication 01/29/2022 Encounter Details Date Type Department Care Team (Late st Contact Info) Description 01/29/2022 Telephone [facility] Adult Primary Care [address] [phone] Carrington Calderon MD 1 [facility] Level [address] [place] [address] Prior Auth, Medication Social History Tobacco [...] Trujillo - 02/26/2022 1518 EDT Call to [facility] to check and see what is going on with the patients sensors at the patientis all out and needs these EDGARD. Per [facility] Azra, when this is ran it states drug therapy is not on file. OV notes and completed form have been faxed to [facility] for approval. * Telephone Encounter - Satinder Thompson RN - 02/26/2022 1020 EDT While on [...] follow up with patient about this. SATINDER THOMPSON, RN * Telephone Encounter - Berenice Mahan - 01/29/2022 1706 EDT Waiting for patient to upload freestyle vignesh report for reauthorization submission. * Telephone Encounter - Karen Trujillo - 01/29/2022 1630 EDT Medication Name: Free style Nissa 14 day sensor Mejia: [id number] documented in this encounter Plan of Treatment Not on file documented as of this encounter Visit Diagnoses Not on filedocumented in this encounter Care Teams Safety Deposit Supervisor Relationship Specialty Start Date End Date Carrington Calderon MD 1 [facility] 1 [place] [address] PCP - General Internal Medicine - Primary Care 12/09/20 documented as of this encounter
--- OUTSIDE RECORDS SUMMARY | 2024-05-31 00:38 | XMS_ITS | Encounter Summary ---
Author Organization [facility] Address [address] [place] [address] Care Team Providers Care Inspector Integrated Circuits Name Role Phone Carrington Calderon MD Primary Care Provi anders Reason for Visit * Reason Comments Med Change Request Encounter Details Date Type Department Care Team (Late st Contact Info) Description [facility] 1 [place], [place] [phone] Nimisha Clifton, GUSTAVO 1 [facility] Level 1 [place] [address] Med Change Request Social History [...] FLEXPEN) 100 unit/mL (3 mL) injectable pen [[id number]] ?? Order Details Dose: 12 Units Route: [...] long-term current use of insulin ([facility])- Primary documented in this encounter Care Teams Inspector Integrated Circuits Relationship Specialty Start Date End Date Carrington Calderon MD 1 [facility] 1 [place] [address] PCP - General Internal Medicine - Primary Care 12/09/20 documented as of this encounter
--- OUTSIDE RECORDS SUMMARY | 2024-05-31 00:38 | XMS_ITS | Encounter Summary ---
Author Organization [facility] Address [address] [place] [address] Care Team Providers Care Cigarette Stamper Name Role Phone Carrington Calderon MD Primary Care Provi anders Reason for Referral * PT/OT/ST (Routine/Next Available) - Closed Specialty Diagnoses / Procedures Referred By Kit goode Referred To Contact Rehab Therapies Diagnoses Bilateral chronic knee pain Chronic low back pain, unspecified back pain laterality, unspecified whether sciatica present Carrington Calderon MD Phone: tel: fax: Referral ID Status Reason Start Date Expiration Date V isits Requested Visits Authorized [id number] Closed Specialty Services Required 11/17/2022 1 1 Question Answer Reason for Request: bilateral knee and low back pain [facility] [place] Reason for Visit * Reason Comments Annual Exam Encounter Details Date Type Department Care Team (Late st Contact Info) Description 11/17/2022 10:30 EDT Office Visit [facility] Adult Primary Care - [place] 1 [place], [place] [address] Carrington Calderon MD 1 [facility] Level 1 [place] [phone] Visit for preventive health examination (Primary Dx); [...] 10/02/2020 23:50 EDT River Francisco RN * Are you blind or do you have serious difficulty seeing, even when wearing glasses? Answer Date of Assessment Author No 10/02/2020 23:50 WANDAT River Francisco RN * Do you have serious difficulty walking or climbing stairs? (5 years old or older) Answer Date of Assessment Author No 10/02/2020 23:50 River Cavanaugh RN * Do you have difficulty dressing or bathing? (5 years old or older) Answer Date of Assessment Author No 10/02/2020 23:50 EDT [place], Krist in, RN * Because of a physical, mental, [...] Refills Last Filled Start Date End Date ondansetron (ZOFRAN-ODT) 4 mg disintegrating tabletIndications:Ga stroparesis Take 1 Tablet by mouth every 8 hours as needed for Nausea. 30 Tablet 11 11/17/2022 4 DULoxetine (CYMBALTA) 20 mg delayed release capsuleIndications:A nxiety and depression Take 1 Capsule by mouth daily. 30 Capsule 2 11/17/2022 3 traMADol (ULTRAM) 50 mg tabletIndications:Ch ronic midline low back pain without sciatica Take 1 Tablet by mouth every 6 hours as needed for Pain. Daily Max: 200 mg 30 Tablet 5 11/17/2022 3 insulin glargine (LANTUS SOLOSTAR/SEMGLEE) 100 unit/mL (3 mL) injection penIndications:Type 2 diabetes mellitus with diabetic polyneuropathy, with long-term current use of insulin ([facility]) Inject 40 Units into the skin at bedtime. 36 mL 4 11/17/2022 4 insulin aspart U-100 (NOVOLOG FLEXPEN) 100 unit/mL (3 mL) injectable penIndications:type 2 diabetes mellitus,as needed with meals. Inject 8-14 Units into the skin 3 times daily with meals. Sliding scale- 8+(2-6) units premeal 30 mL 4 11/17/2022 3 gabapentin (NEURONTIN) 300 mg capsuleIndications:D iabetic polyneuropathy associated with type 2 diabetes mellitus ([facility]) Take 1 Capsule by mouth every morning AND 3 Capsules at bedtime. 360 Capsule 4 11/17/2022 4 SITagliptin phosphate (JANUVIA) 100 mg tabletIndications:Ty pe 2 diabetes mellitus with diabetic polyneuropathy, with long-term current use of insulin ([facility]) Take 1 Tablet by mouth daily. 90 Tablet 4 11/17/2022 4 omeprazole (PRILOSEC) 20 mg capsuleIndications:G astroparesis Take 1 Capsule by mouth daily. 90 Capsule 3 11/17/2022 3 LORazepam (ATIVAN) 0.5 mg tabletIndications:An xiety Take 1 Tablet by mouth daily as needed for Anxiety. Daily Max: 0.5 mg 30 Tablet 3 11/17/2022 4 documented in this encounter Progress Notes [...] of insulin ([facility]) ([facility]): Empagliflozin was stopped recently in [...] HEMOGLOBIN A1C - THYROID CASCADE - URINE [id number] RATIO (ACR) Gastroparesis: Refilled omeprazole and ondansetron. - omeprazole (PRILOSEC) 20 mg capsule - ondansetron (ZOFRAN-ODT) 4 mg disintegrating tablet Diabetic polyneuropathy associated with type 2 diabetes mellitus ([facility]) ([facility]): Continue gabapentin. She is comfortable [...] minutes today in chart review, care coordination, [id number] time with the patient independent of preventive care. Return for 1 month, diabetes and mood, 3 months, diabetes and mood , vid or FTF OK, same day ok. Patient education was direct. Barriers were assessed and addressed as needed. Alejandrina Douglas is a 37 y.o. female presenting with Annual Exam HPI Last visit with me was in January of last year via televBliipso. NicoDerm patch was prescribed to assist with [...] She uses a meditation rena at bedtime. Jimotes that sometimes, pain is a contributor to [...] the lowest she has recently seen around 1 25-1 30. She had a recent gastroparesis flare, and [...] of insulin ([facility]) Gastroparesis Diabetic polyneuropathy associated with type 2 diabetes mellitus ([facility]) Chronic low back pain, unspecified back [...] current use of insulin ([facility]) Inject 40 Units into the skin [...] type 2 diabetes mellitus ([facility]) TAKE 1 CAPSULE BY MOUTH IN THE [...] 11/17/2022 documented in this encounter Care Teams Cigarette Stamper Relationship Specialty Start Date End Date Carrington Calderon MD 1 [facility] Level 1 [place] [address] PCP - General Internal Medicine - Primary Care 7/6/21 documented as of this encounter
--- OUTSIDE RECORDS SUMMARY | 2024-05-31 00:38 | XMS_ITS | Encounter Summary ---
Author Organization [facility] Address [address] [place] [address] Care Team Providers Care Automation Control Technician Name Role Phone Carrington Calderon MD Primary Care Provi anders Abigail Díaz Unavailable [phone] Carmelo Hendrickson Unavailable Unavailable Abigail Díaz Unavailable Encounter Details Date Type Department Care Team (Late st Contact Info) Description 10/27/2022 Lab Requisition [facility] Pathology & Laboratory Medicine - [address] [address] Dale Collier MD [address] [place] [address] [address] [place], [place] [phone] Nausea; Vomiting, unspecified Social History Tobacco Use [...] explore management options, if applicable. 11/02/2022 17:09 [facility] Final Diagnosis A. DUODENUM, BIOPSY: - Enteric mucosa with no significant diagnostic abnormality. B. STOMACH, ANTRUM, BIOPSY: - Antral-type mucosa with chemical (reactive) gastropathy. C. GASTROESOPHAGEAL JUNCTION, BIOPSY: - Active esophagitis with ulcer. - GMS stain is negative for fungal hyphae within squamous epithelium. - Negative for viral cytopathic effect. - No pill fragments identified. - See comment. 11/02/2022 17:09 [facility] Diagnosis Comment Account Director slides of this case were reviewed at the gastrointestinal/li skyla intradepartmental consultation conference. (, KT, RW) 11/02/2022 17:09 [facility] Attestation By the signature below, the attending physician certifies that they have 1) personally conducted a gross and/or microscopic examination of the described specimen(s), and/or personally interpreted the results of laboratory testing of the described specimen(s), and 2) personally rendered or confirmed the above diagnosis. 11/02/2022 17:09 [facility] at 1709 Clinical History Nausea and vomiting, history of gastroparesis; duodenitis, esophagitis 11/02/2022 17:09 [facility] Gross Description A. Received in [...] C1. EUNICE GEE(ASCP) 10/27/2022 18:08 11/02/2022 17:09 [facility] Performing Lab [facility] 11/02/2022 17:09 [facility] Scanned Images 11/02/2022 17:09 [facility] Tissue ENTIRE ESOPHAGUS / Unknown 10/27/2022 11:15 EDT 10/27/2022 16:58 EDT Tissue specimen (specimen) STOMACH STRUCTURE / Unknown 10/27/2022 11:15 EDT 10/27/2022 16:58 EDT Tissue specimen (specimen) ESOPHAGEAL STRUCTURE / Unknown 10/27/2022 11:15 EDT 10/27/2022 16:58 EDT us Dale Collier MD PATHOLOGY ORDERABLES Fin al Result [facility] [address] [place] [address] documented in this encounter Visit Diagnoses Diagnosis Nausea Nausea alone Vomiting, unspecified documented in this encounter Care Teams Automation Control Technician Relationship Specialty Start Date End Date Carrington Calderon MD 1 [facility] [place] 1 [place] [address] PCP - General Internal Medicine - Primary Care 12/09/20 Abigail Díaz Family Law Legal Assistant 04/21/23 01/03/24 Carmelo Hendrickson Coordinator 12/01/23 Abigail Díaz Family Law Legal Assistant 01/04/24 documented as of this encounter
--- OUTSIDE RECORDS SUMMARY | 2024-05-31 00:38 | XMS_ITS | Encounter Summary ---
Author Organization [facility] Address [address] [place] [address] Care Team Providers Care Community Marketing Coordinator Name Role Phone Carrington Calderon MD Primary Care Provi anders Reason for Visit * (Routine/Next Available) - Receiving Office to Obtain Authorization Specialty Diagnoses / Procedures Referred By Kit goode Referred To Contact Procedures XR OUTSIDE IMAGES NEURO Imaging, External Referral ID Status Reason Start Date Expiration Date Visits Requested Visits Authorized [id number] Receiving Office to Obtain Authorization 2 1 1 Encounter Details Date Type Department Care Team (Latest Contact Info) Description 03/18/2022 - 03/18/2022 23:59 EDT Hospital Encounter [facility] [...] 4 hours as needed for Pain. 1 blood glucose meterIndications:Ty pe 2 diabetes mellitus with diabetic polyneuropathy, with long-term current use of insulin ([facility]) One Touch Verio Flex meter. 1 Each 2 06/27/19 24 blood glucose test strips Brand: FreeStyle Precision Cristo, use as directed if Freestyle Vignesh censor isnt working 100 Each 3 1 06/27/19 24 blood glucose test strips One Touch Verio IQ or other brand compatible with meter and covered by patient's insurance. Testing QID. 100 Each 5 1 06/27/19 24 flash glucose scanning reader (FREESTYLE VIGNESH 2 READER) misc 1 Device by [employer] (non-drug; combo route) route continuous. 1 Each 1 05/21/20 22 flash glucose sensor (FREESTYLE VIGNESH 14 DAY SENSOR) kitIndications:Type 2 diabetes mellitus with diabetic polyneuropathy, with long-term current use of insulin ([facility]) Inject 1 Kit into the skin every 14 days. 6 Kit 3 2 05/21/20 22 flash glucose sensor (FREESTYLE VIGNESH 2 SENSOR) kit 1 Device by [facility] (non-drug; combo route) route continuous. 6 Kit 3 2 05/21/20 22 gabapentin (NEURONTIN) 300 mg capsuleIndications: Diabetic polyneuropathy associated with type 2 diabetes mellitus ([facility]) Take 300mg in the morning and 900mg in the evening 120 capsule 11 2 10/16/19 23 insulin aspart U-100 (NOVOLOG FLEXPEN) 100 unit/mL (3 mL) injectable penIndications:type 2 diabetes mellitus,as needed with meals. Inject 12 Units into the skin 3 times daily with meals. 30 mL 2 2 09/03/19 23 insulin glargine (LANTUS SOLOSTAR/SEMGLEE) 100 unit/mL (3 mL) injection penIndications:Type 2 diabetes mellitus with diabetic polyneuropathy, with long-term current use of insulin ([facility]) Inject 40 Units into the skin at bedtime for 90 days. 36 mL 4 2 11/18/19 23 insulin pen needles 31G x 16Indications:Ty pe 2 diabetes mellitus with hyperglycemia, with long-term current use of insulin ([facility]) Use 1 pen needle as directed 4 times daily. 400 Each 2 1 03/16/20 23 lancets Brand: Freestyle, use as directed if Freestyle Vignesh censor isnt working 100 Each 3 1 03/16/20 23 lancets One Touch Delica or other brand compatible with lancing device and covered by patient's insurance. 100 Each 5 1 03/16/20 23 lidocaine 5 % (LIDODERM) 5 % patchIndications:Ch ronic midline low back pain without sciatica Place 1 Patch onto the skin daily. Patch(es) may remain in place for up to 12 hours in any 24-hour period. 30 Patch 2 09/03/19 23 LORazepam (ATIVAN) 0.5 mg tabletIndications:A nxiety Take 1 Tablet by mouth daily as needed for Anxiety. Daily Max: 0.5 mg 30 Tablet 3 2 11/18/19 23 metoclopramide HCl (REGLAN) 10 mg tablet Take 1 Tablet by mouth 3 times daily before meals. 270 Tablet 3 2 06/27/19 24 nicotine (NICODERM CQ) 14 mg/24 hr patchIndications:To bacco use Apply one patch only daily on skin without hair. Apply to a different skin site at the same time each day. 42 Patch 2 09/03/19 23 nicotine (NICODERM CQ) 7 mg/24 hr patchIndications:To bacco use Apply one patch only daily on skin without hair. Apply to a different skin site at the same time each day. 14 Patch 2 09/03/19 23 nystatin (MYCOSTATIN) creamIndications:Sk in infection Apply to area under abdominal/groin skin twice daily 30 g 2 03/16/20 23 omeprazole (PRILOSEC) 20 mg capsule Take 1 capsule by mouth daily. 90 capsule 3 2 11/18/19 23 ondansetron (ZOFRAN-ODT) 4 mg disintegrating tabletIndications:G astroparesis Take 1 Tablet by mouth every 8 hours as needed for Nausea. 30 Tablet 11 2 11/18/19 23 prochlorperazine (COMPAZINE) 25 mg suppositoryIndicati ons:Gastroparesis Place 1 Suppository rectally every 12 hours as needed for Nausea. 6 Suppository 2 12/18/19 23 SITagliptin (JANUVIA) 50 mg tablet Take 1 Tablet by mouth daily. 90 Tablet 3 2 11/18/19 23 TENS unit and electrodes combo pack 1 Each by misc (non-drug; combo route) route daily. 1 Each 1 05/21/20 22 traMADol (ULTRAM) 50 mg tabletIndications:C hronic midline low back pain without sciatica Take 1 Tablet by mouth every 6 hours as needed for Pain. Daily Max: 200 mg 30 Tablet 5 2 09/04/19 23 documented as of this encounter Discharge Disposition [...] 8:25 EDT This is a non-reportable exam. us External Imaging IMG OTHER IMAGING ORDERABLES Fi nal Result documented in this encounter Visit Diagnoses Not on filedocumented in this encounter Care Teams Community Marketing Coordinator Relationship Specialty Start Date End Date Carrington Calderon MD 1 [facility] Level 1 [place] [phone] PCP - General Internal Medicine - Primary Care 12/09/20 documented as of this encounter
--- OUTSIDE RECORDS SUMMARY | 2024-05-31 00:38 | XMS_ITS | Encounter Summary ---
Author Organization [facility] Address [address] [place] [address] Care Team Providers Care Jacquard Loom Card Changer Name Role Phone Carrington Calderon MD Primary Care Provi anders Abigail Díaz Unavailable [phone] Carmelo Hendrickson Unavailable Unavailable Abigail Díaz Unavailable Reason for Visit * Reason Onset Date Comments Appointment Related 02/05/2022 LVM in regar ds to zomm appt. Adivised to call back for any questions or concerns. x2 Encounter Details Date Type Department Care Team (Late st Contact Info) Description 02/05/2022 Telephone [facility] Gastroenterology - [address] [address] Scott Arzate MD [address] [place] [address], [address] [place] [address] Appointment Related (LVM in regards [...] on filedocumented in this encounter Care Teams Jacquard Loom Card Changer Relationship Specialty Start Date End Date Carrington Calderon MD 1 [facility] 1 [place] [phone] PCP - General Internal Medicine - Primary Care 12/09/20 Abigail Díaz Coat Check Attendant 04/21/23 01/03/24 Carmelo Hendrickson Coordinator 12/01/23 Abigail Díaz Coat Check Attendant 01/04/24 documented as of this encounter
--- OUTSIDE RECORDS SUMMARY | 2024-05-31 00:38 | XMS_ITS | Encounter Summary ---
Author Organization [facility] Address [address] [place] [address] Care Team Providers Care Senior Care Manager Name Role Phone Carrington Calderon MD Primary Care Provi anders Abigail Díaz Unavailable [phone] Carmelo Hendrickson Unavailable Unavailable Abigail Díaz Unavailable Encounter Details Date Type Department Care Team (Late st Contact Info) Description 06/01/[address] [facility] Pathology & Laboratory Medicine - [address] [address] Ester Gabriel [address] [place] [address] Encounter for other general examination [...] explore management options, if applicable. 06/15/2022 11:18 [facility] Final Diagnosis A. 3RD TOE, LEFT FOOT, ? DISTAL? , AMPUTATION: - Skin with ulceration and gangrenous necrosis. - Bone with remodeling changes and patchy chronic inflammation. See comment. 06/15/2022 11:18 [facility] Diagnosis Comment Overall, the findings are nonspecific but could be compatible with chronic osteomyelitis in the appropriate clinical setting. The disarticulation margin is grossly unremarkable. Histologic features diagnostic of acute osteomyelitis are not seen in the car sales representative sections submitted. 06/15/2022 11:18 [facility] Attestation There was significant resident/fellow involvement in the diagnostic evaluation of this case. By the signature below, the attending physician certifies that they have personally conducted a gross and/or microscopic examination of the described specimens and rendered or confirmed the above diagnosis. 06/15/2022 11:18 [facility] at 1118 Clinical History Osteomyelitis 06/15/2022 11:18 [facility] Gross Description A. [...] viable. The proximal margin is inked blue. Lusterer sections are submitted following acid decalcification as follows: BLOCK SHIELDS A1- bone underlying eschar A2- proximal soft tissue margin Carrington Bravo MD 06/01/2022 15:00 06/15/2022 11:18 [facility] Resident/Cash w: Carrington Bravo MD 06/15/2022 11:18 [facility] Performing Lab [facility] 11:18 [facility] Scanned Images 06/15/2022 11:18 [facility] Tissue TRAUMATIC AMPUTATION OF UPPER LIMB / Unknown 05/28/2022 7:50 EST 06/01/2022 8:27 EST us Ester Gabriel PATHOLOGY ORDERABLES Final Resul t [facility] [address] [place] [address] documented in this encounter Visit Diagnoses Diagnosis Encounter for other general examination documented in this encounter Care Teams Senior Care Manager Relationship Specialty Start Date End Date Carrington Calderon MD 1 [facility] 1 [place] [phone] PCP - General Internal Medicine - Primary Care 12/09/20 Abigail Díaz Turkey Boner 04/21/23 01/03/24 Carmelo Hendrickson Coordinator 12/01/23 Abigail Díaz Turkey Boner 01/04/24 documented as of this encounter
--- OUTSIDE RECORDS SUMMARY | 2024-05-31 00:38 | XMS_ITS | Encounter Summary ---
Author Organization [facility] Address [address] [place] [address] Care Team Providers Care Electromechanical Engineer Name Role Phone Carrington Calderon MD Primary Care Provi anders Reason for Visit * Reason Comments Pre-op Exam Toe amputation Encounter Details Date Type Department Care Team (Late st Contact Info) Description 05/20/2022 13:45 EST Office Visit [facility] Adult Primary Care - [place] [address] [place], [place] [phone] Rachel Stein PA-C 1 [facility] Level [address] [place] [address] Type 2 diabetes mellitus with diabetic polyneuropathy, with long-term current use of insulin ([facility]) (Primary Dx); Preop examination Social History [...] River Cavanaugh RN documented in this encounter Patient Instructions * [...] Care Everywhere. * Surgery Prep: General Info (Bangladeshi) documented in this encounter Progress Notes * Rachel Stein PA-C - 05/20/2022 6926 EST Subjective: Cristy Luo is a 37 y.o. female who presents to the office today for a preoperative consultation at the request of Dr. Ester Gabriel, who will perform a L third toe [facility] 06[facility]11/[facility] at [facility] [place]. Current Complaints: Failure of IV abx [place] SURGEON: Dr. Prudence Gabriel PROCEDURE: toe amputation [phone] Office name: [facility] Prior h/o of anesthetic complications: [...] referral for therapy. ??? Diabetes ([facility]) A1c 10.3 on 11/28/2019 - poorly controlled ??? Diabetes mellitus, type 2 (HCC) pt check blood sugars at home- X [...] occasionally ??? Neuropathic diabetic ulcer of foot (HCC) 09/17/2021 ??? Obesity, unspecified ??? Osteomyelitis (HCC) of left great toe-s/p amputation ??? Peripheral neuropathy 08/12/20- Bilateral feet-Takes Gabapentin- pt just started this med. ??? Productive cough pt currently quitting smoking- clear secretions. ??? Spontaneous miscarriage 09/04/201502/18, 08/19. Followed by Dr. López[facility] in [facility] Family History Problem Relation Age [...] 0 ??? blood glucose test strips Brand: BuzzSumo Cristo, use as directed if Freestyle Vignesh [...] daily. 400 Each 2 ??? lancets Brand: Fluencr, use as directed if Freestyle Vignesh censor [...] current use of insulin ([facility]) ([facility]) 2. Preop examination No contraindications to [...] long-term current use of insulin ([facility]) Preop examination documented in this encounter Results * ECG REPORT - SCANNED (05/21/2022 11:24 EST) 05/21/2022 11:2 4 EST us Scan 2 [employer] PROCEDURE/MINOR SURGICAL OR DERABLES Final Result * ECG REPORT - SCANNED (05/21/2022 11:24 EST) 05/21/2022 11:2 4 EST us Scan 2 [employer] PROCEDURE/MINOR SURGICAL OR DERABLES Final Result * EK 12-LEAD (05/20/2022 14:39 EST) 05/20/2022 14:3 9 EST Narrative [facility] EK - 05/20/2022 14:56 EST ? PC Site ? Test Date: ?2022-05-20 Pat Name: ? CRISTY LUO ?Department: ?? [place] ? Room: ? Gender: ? Female ? Product Marketing Executive: ?? [id number] : ?1985 ? Requested By: GARRISON KIRBY Order Number: [id number] ? Reading MD: ?? Rachel WOLFF C ? Measurements Intervals ?[place] ? Rate: ? 114 ?P: ?57 ME: ? 141 ?QRS: ?17 QRSD: ? 88 [...] Procedure Note Rachel Stein PA-C - 05/20/2022 Site Test Date: 2022-05-20 Pat Name: CRISTY LUO Department: [facility] Room: Gender: Female Product Marketing Executive: [id number] : 1985 Requested By: GARRISON KIRBY Order Number: [id number] Sammie MD: Rachel Colon Measurements Intervals [place] Rate: 114 P: 57 ME: 141 QRS: 17 QRSD: 88 T: 28 [...] On 05-20-2022 14:56:11 EST by Vladimir HERNANDEZ. us Rachel Stein PA-C CARDIAC ECG ORDERABLES Fin al Result [facility] EKG documented in this encounter Visit Diagnoses Diagnosis Type 2 diabetes mellitus with diabetic polyneuropathy, with long-term current use of insulin ([facility])- Primary Preop examination Preoperative examination, unspecified [...] long-term current use of insulin ([facility]) Inject 1 Kit into the skin [...] documented as of this encounter Care Teams Electromechanical Engineer Relationship Specialty Start Date End Date Carrington Calderon MD 1 [facility] 1 [place] [phone] PCP - General Internal Medicine - Primary Care 12/09/20 documented as of this encounter
--- OUTSIDE RECORDS SUMMARY | 2024-05-31 00:38 | XMS_ITS | Encounter Summary ---
Author Organization [facility] Address [address] [place] [address] Care Team Providers Care Mill Recorder Name Role Phone Carrington Calderon MD Primary Care Provi anders Abigail Díaz Unavailable Carmelo Hendrickson Unavailable Unavailable Abigail Díaz Unavailable [phone] Reason for Visit * Reason Onset Date Comments Prior Auth, Medication 11/18/2022 Encounter Details Date Type Department Care Team (Late st Contact Info) Description 11/18/2022 Telephone [facility] Adult Primary Care - [address] [phone] Carrington Calderon MD 1 [employer] Level [address] [place] [phone] Prior Auth, Medication Social History Tobacco Use [...] Never 11/17/2022 How often does anyone, audrey chivo family, [...] Refills Last Filled Start Date End Date insulin lispro (HUMALOG KWIKPEN INSULIN) 100 unit/mL injectable penIndications:Typ e 2 diabetes mellitus with diabetic polyneuropathy, with long-term current use of insulin ([facility]) Inject 8-14 Units into the [...] 100 unit/mL (3 mL) injectable pen Mejia: [id number] documented in this encounter Plan of Treatment Not on file documented as of this encounter Visit Diagnoses Diagnosis Type 2 diabetes mellitus with diabetic polyneuropathy, with long-term current use of insulin ([facility])- Primary documented in this encounter [...] documented as of this encounter Care Teams Mill Recorder Relationship Specialty Start Date End Date Carrington Calderon MD 1 [employer] [address] [place] [phone] PCP - General Internal Medicine - Primary Care 12/09/20 Abigail Díaz Steel Construction Worker 04/21/23 01/03/24 Carmelo Hendrickson Coordinator 12/01/23 Abigail Díaz Steel Construction Worker 01/04/24 documented as of this encounter
--- OUTSIDE RECORDS SUMMARY | 2024-05-31 00:38 | XMS_ITS | Encounter Summary ---
Author Organization [facility] Address [address] [place] [address] Care Team Providers Care Laborer Pole Crew Name Role Phone Carrington Calderon MD Primary Care Provi anders Reason for Visit * Reason Onset Date Comments Results 03/30/2022 Encounter Details Date Type Department Care Team (Late st Contact Info) Description 03/30/2022 Telephone [facility] Adult Primary Care [facility] 1 [place], [place] [phone] Carrington Calderon MD 1 [facility] Level [address] [place] [address] Results Social History Tobacco Use [...] Never 01/13/2022 How often does anyone, audrey chivo family, [...] that her lumbar spine x-ray done at [facility] shows some mild arthritis throughout the [...] on filedocumented in this encounter Care Teams Laborer Pole Crew Relationship Specialty Start Date End Date Carrington Calderon MD 1 [facility] Level [address] [place] [phone] PCP - General Internal Medicine - Primary Care 12/09/20 documented as of this encounter
--- OUTSIDE RECORDS SUMMARY | 2024-05-31 00:38 | XMS_ITS | Encounter Summary ---
Author Organization [facility] Address [address] [place] [address] Care Team Providers Care Principal Software Engineer Name Role Phone Carrington Calderon MD Primary Care Provi anders Reason for Visit * Reason Comments Medications Refill Encounter Details Date Type Department Care Team (Late st Contact Info) Description 02/26/2022 Refill [facility] Adult Primary Care [address] [phone] Tonja Alejandro PA-C [address] [place] [address] [place] [phone] Medications Refill Social History Tobacco Use [...] slept in a correction (including now)? No 01/13/2022 Interpersonal Safety Answer [...] Refills Last Filled Start Date End Date metoclopramide HCl (REGLAN) 10 mg tablet Take 1 Tablet by mouth 3 times daily before meals. 270 Tablet 3 03/02/2022 06/27/2023 documented in this encounter Miscellaneous Notes * Telephone Encounter - Nichole Márquez - 03/01/2022 09 EDT Medication(s) Requested: METOCLOPRAMIDE HCI 10 MG Preferred Pharmacy: [facility] Is patient out of medication? Unknown Last [...] as of this encounter Care Teams Principal Software Engineer Relationship Specialty Start Date End Date Carrington Calderon MD 1 [facility] Level [address] [place] [phone] PCP - General Internal Medicine - Primary Care 12/09/20 documented as of this encounter
--- OUTSIDE RECORDS SUMMARY | 2024-05-31 00:38 | XMS_ITS | Encounter Summary ---
Author Organization [facility] Address [address] [place] [address] Care Team Providers Care Superior Court Justice Name Role Phone Carrington Calderon MD Primary Care Provi anders Reason for Visit * Reason Onset Date Comments COVID-19 Positive Patient Outreach 02/25/2022 Encounter Details Date Type Department Care Team (Late st Contact Info) Description 02/25/2022 Telephone [facility] Adult Primary Care [address] [phone] Carrington Calderon MD [address] [phone] COVID-19 Positive Patient Outreach Social [...] River Francisco RN documented in this encounter Ordered Prescriptions Prescription Sig Dispense Quantity Refills Last Filled Start Date End Date nirmatrelvir-riton avir (PAXLOVID 300-100, EUA,) 300 mg (150 mg x 2)-100 mg tabletIndications: COVID-19 virus infection Take 3 Tablets by mouth 2 times daily for 5 days. 30 Tablet 02/26/2022 documented in this encounter Miscellaneous Notes * [...] Encounter - Benita Thompson RN - 02/26/2022 2800 EDT Patient tested positive for covid 19 [...] wash your hands often. Rx pended with [facility] [place] pharmacy loaded. Patient lives in [place] but says that her iutnkm-da-rnm will be in [place] this afternoon and will be able to [...] Primary documented in this encounter Care Teams Superior Court Justice Relationship Specialty Start Date End Date Carrington Calderon MD 1 [facility] Level [address] [place] [phone] PCP - General Internal Medicine - Primary Care 12/09/20 documented as of this encounter
--- OUTSIDE RECORDS SUMMARY | 2024-05-31 00:38 | XMS_ITS | Encounter Summary ---
Author Organization [facility] Address [address] [place] [address] Care Team Providers Care First Breaker Feeder Name Role Phone Carrington Calderon MD Primary Care Provi anders Reason for Visit * Reason Comments Emesis Reports multiple day s of vomiting. Hx gastroenteritis with similar presentations. Endorses dizziness. Lost consciousness in triage. VSS. Reports pain everywhere. Encounter Details Date Type Department Care Team (Late st Contact Info) Description 12/13/2022 17:42 EDT - 12/13/2022 21:40 EDT Emergency [facility] Emergency Department - [address] [id number] Brijesh Esposito MD [address] [facility], Level 1 [place] [address] Non-intractable vomiting with nausea (Primary [...] Reading Time Taken Comments Blood Pressure 141/104 12/13/20226 EDT Pulse - - Temperature 37.6 ??C [...] River Cavanaugh RN documented in this encounter Discharge Instructions * [...] 4 hours as needed for Pain. 1 lidocaine 5 % (LIDODERM) 5 % patchIndications:Ch ronic midline low back pain without sciatica Place 1 Patch onto the skin daily. Patch(es) may remain in place for up to 12 hours in any 24-hour period. 30 Patch 2 3 blood glucose meterIndications:Ty pe 2 diabetes mellitus with diabetic polyneuropathy, with long-term current use of insulin ([facility]) One Touch Verio Flex meter. 1 Each 2 06/27/19 24 blood glucose test strips Brand: FreeStyle Precision Cristo, use as directed if Freestyle Vignesh censor isnt working 100 Each 3 1 06/27/19 24 blood glucose test strips One Touch Verio IQ or other brand compatible with meter and covered by patient's insurance. Testing QID. 100 Each 5 1 06/27/19 24 DULoxetine (CYMBALTA) 20 mg delayed release capsuleIndications: Anxiety and depression Take 1 Capsule by mouth daily. 30 Capsule 2 3 12/18/19 23 empagliflozin (JARDIANCE ORAL) Take by mouth. 06/07 07/26 24 gabapentin (NEURONTIN) 300 mg capsuleIndications: Diabetic polyneuropathy associated with type 2 diabetes mellitus ([facility]) Take 1 Capsule by mouth every morning AND 3 Capsules at bedtime. 360 Capsule 4 3 06/27/19 24 insulin glargine (LANTUS SOLOSTAR/SEMGLEE) 100 unit/mL (3 mL) injection penIndications:Type 2 diabetes mellitus with diabetic polyneuropathy, with long-term current use of insulin ([facility]) Inject 40 Units into the skin at bedtime. 36 mL 4 3 06/27/19 24 insulin lispro (HUMALOG KWIKPEN INSULIN) 100 unit/mL injectable penIndications:Type 2 diabetes mellitus with diabetic polyneuropathy, with long-term current use of insulin ([facility]) Inject 8-14 Units into the skin 3 times daily with meals. 15 mL 3 3 04/04/20 23 insulin pen needles 31G x 5/16Indications:Ty pe 2 diabetes mellitus with hyperglycemia, with long-term current use of insulin ([facility]) Use 1 pen needle as directed 4 times daily. 400 Each 2 1 03/16/20 lancets Brand: Freestyle, use as directed if Freestyle Vignesh censor isnt working 100 Each 3 1 03/16/20 lancets One Touch Delica or other brand compatible with lancing device and covered by patient's insurance. 100 Each 5 1 03/16/20 23 LORazepam (ATIVAN) 0.5 mg tabletIndications:A nxiety Take 1 Tablet by mouth daily as needed for Anxiety. Daily Max: 0.5 mg 30 Tablet 3 3 06/27/19 24 metoclopramide HCl (REGLAN) 10 mg tablet Take 1 Tablet by mouth 3 times daily before meals. 270 Tablet 3 2 06/27/19 24 nystatin (MYCOSTATIN) creamIndications:Sk in infection Apply to area under abdominal/groin skin twice daily 30 g 2 03/16/20 23 nystatin (MYCOSTATIN) powder Apply topically to affected area 2 times daily as needed (rash). 15 g 2 3 03/16/20 23 omeprazole (PRILOSEC) 20 mg capsuleIndications: Gastroparesis Take 1 Capsule by mouth daily. 90 Capsule 3 3 12/18/19 23 ondansetron (ZOFRAN-ODT) 4 mg disintegrating tabletIndications:G astroparesis Take 1 Tablet by mouth every 8 hours as needed for Nausea. 30 Tablet 11 3 06/27/19 24 prochlorperazine (COMPAZINE) 10 mg tablet Take 1 Tablet by mouth every 8 hours as needed for Nausea. 8 Tablet 3 12/18/19 23 prochlorperazine (COMPAZINE) 25 mg suppositoryIndicati ons:Gastroparesis Place 1 Suppository rectally every 12 hours as needed for Nausea. 6 Suppository 2 12/18/19 23 SITagliptin phosphate (JANUVIA) 100 mg tabletIndications:T ype 2 diabetes mellitus with diabetic polyneuropathy, with long-term current use of insulin ([facility]) Take 1 Tablet by mouth daily. 90 Tablet 4 3 06/27/19 24 traMADol (ULTRAM) 50 mg tabletIndications:C hronic midline low back pain without sciatica Take 1 Tablet by mouth every 6 hours as needed for Pain. Daily Max: 200 mg 30 Tablet 5 3 01/07/20 23 documented as of this encounter Ordered Prescriptions Prescription Sig Dispense Quantity Refills Last Filled Start Date End Date prochlorperazine (COMPAZINE) 10 mg tablet Take 1 Tablet by mouth every 8 hours as needed for Nausea. 8 Tablet 12/13/2022 12/17/2022 documented in this encounter Discharge Disposition Disposition Code Departure Means Destination Comment s Home or Self Retirement documented in this encounter ED Notes * Catherine Correia RN - 12/13/20227 EDT Discharge instructions, printed AVS, and return [...] Gap(!): 16 [JV] 1851 Potassium(!): 3.1 [JV] 1851 Creatinine(!): 0.43 [JV] Relevant Data User Index [...] nausea Disposition: Discharged Chief complaint: emesis CINTHYA Luo is a 37 y.o. female with type [...] agitation or overt thought disorder. Procedures Procedures Cosigned by Brijesh Esposito MD at 12/15/2022 9:22 EDT Associated attestation - Brijesh Esposito MD - [...] SCANNED (12/20/2022 6:15 EDT) 12/20/2022 6:15 EDT us Scan 2 Time Piece Repairer PROCEDURE/MINOR SURGICAL OR DERABLES Final Result * ECG REPORT - SCANNED (12/20/2022 6:15 EDT) 12/20/2022 6:15 EDT us Scan 2 Time Piece Repairer PROCEDURE/MINOR SURGICAL OR DERABLES Final Result * POCT TEST, CLINITEK (12/13/2022 20:26 EDT) UPT Result Negative Negative 12/13/2022 20:32 EDT [facility] HN LAB COMMENT (CLINITEK, UPT) Test performed at Emergency Department 12/13/2022 20:32 EDT [facility] Comment:False negative resul ts may occur in women who are beyond 5-8 weeks gestation. Diagnosis of should be based on a correlation of test results with typical clinical signs and symptoms. Urine URINE SPECIMEN COLLECTION, CLEAN CATCH / Unknown 12/13/2022 20:26 EDT 12/13/2022 20:32 EDT us Fran Bush MD POINT OF CARE TEST ORDERABLES F inal Result [facility] [address] [place] [id number] * (ABNORMAL) POCT URINE DIPSTICK, CLINITEK (12/13/2022 20:24 EDT) Color, UA Yellow Yellow 12/13/2022 20:26 EDT [facility] Clarity, UA Clear Clear 12/13/2022 20:26 EDT [facility] Glucose, UA Negative Negative mg/dL 12/13/2022 20:26 T [facility] Bilirubin, UA Negative Negative 12/13/2022 20:26 T [facility] Ketones, UA 3+(AA) Negative 12/13/2022 20:26 EDT [facility] Specific Ruth, Urine 1.020 1.001 - 1.035 12/13/2022 20:26 EDT [facility] Blood, UA 3+(A) Negative 12/13/2022 20:26 EDT [facility] pH, UA 7.0 4.6 - 8.0 12/13/2022 20:26 EDT [facility] Protein, UA 1+(A) Negative 12/13/2022 20:26 EDT [facility] Urobilinogen, UA 0.2 0.2 - 1.0 mg/dL 12/13/2022 20:26 EDT [facility] Nitrite, UA Negative Negative 12/13/2022 20:26 EDT [facility] Leuk Esterase Trace(A) Negative 12/13/2022 20:26 EDT [facility] HN LAB COMMENT (CLINITEK, UR) Test performed at Emergency Department 12/13/2022 20:26 EDT [facility] Urine URINE SPECIMEN COLLECTION, CLEAN CATCH / Unknown 12/13/2022 20:24 EDT 12/13/2022 20:26 EDT us Fran Bush MD POINT OF CARE TEST ORDERABLES F inal Result Performing Organization Address City/[facility]/ZIP Co de Phone Number [facility] [address] [place] [address] * POCT CSN BARCODE URINE DIPSTICK (12/13/2022 20:20 EDT) Urine URINE SPECIMEN COLLECTION, CLEAN CATCH / Unknown Urine Collect / Unknown 12/13/2022 20:20 EDT 12/13/2022 20:20 EDT us Fran Bush MD LAB INFO SERVICE AND SUPPORT & PHONE RESULT Final Result Performing Organization Address [facility]/ZIP Co de Phone Number [facility] [address] [place] [address] * POCT CSN BARCODE URINE PREG TEST (12/13/2022 20:20 EDT) Urine URINE SPECIMEN COLLECTION, CLEAN CATCH / Unknown Urine Collect / Unknown 12/13/2022 20:20 EDT 12/13/2022 20:20 EDT us Fran Bush MD LAB INFO SERVICE AND SUPPORT & PHONE RESULT Final Result [facility] [address] [place] [address] * EKG 12-LEAD (12/13/2022 18:09 EDT) 12/13/2022 18:0 9 EDT Narrative [facility] E[facility] - 12/17/2022 9:43 EDT ?[facility] Emergency ? Test Date: ?2022-12-13 Pat Name: ? CRISTY LUO ?Department: ?? ED ? Room: ? AC17 Gender: ? Female ? Head Bellhop Captain: ?? [id number] : ?1985 ? Requested By: CATE COLEY Order Number: [id number] ? Reading MD: ?? CINDY CLAUDIO MD ? Measurements Intervals ?[place] ? Rate: ? 85 ? P: ?57 ME: ? 144 ?QRS: ?5 QRSD: ? 97 [...] Pat Name: CRISTY LUO Department: ED Room: [facility] Gender: Female Head Bellhop Captain: [id number] : 1985 Requested By: CATE COLEY Order Number: [id number] Reading MD: CINDY SNYDER MD Measurements Intervals [place] Rate: 85 P: 57 ME: 144 QRS: 5 QRSD: 97 T: -1 QT: 363 QTc: 432 Interpretive Statements SINUS RHYTHM WITH SINUS ARRHYTHMIA Compared to ECG 05/20/2022 14:39:55 Sinus tachycardia no longer present T-wave abnormality no longer present I reviewed the tracing and have either agreed or edited the findings inthis report. Electronically Signed On 12-17-2022 9:43:44 EDT by CINDY SANDOVAL. us Brijesh Esposito MD CARDIAC ECG ORDERABLES Final Res ult [facility] E[facility] * (ABNORMAL) COMPLETE BLOOD COUNT AND DIFFERENTIAL (12/13/2022 18:04 EDT) WBC 17.27(H) 4.00 - 12.40 K/cmm 12/13/2022 18:17 [facility] RBC 4.72 3.86 - 5.04 M/cmm 12/13/2022 18:17 [facility] Hemoglobin 14.9 11.6 - 15.2 g/dL 12/13/2022 18:17 [facility] HCT 41.3 34.9 - 44.4 % 12/13/2022 18:17 [facility] MCV 88 81 - 98 fL 12/13/2022 18:17 [facility] MCH 31.6 26.7 - 33.3 pg 12/13/2022 18:17 [facility] MCHC 36.1(H) 32.1 - 35.9 g/dL 12/13/2022 18:17 [facility] RDW-CV 13.0 <14.7 % 12/13/2022 18:17 [facility] RDW-SD 41.4 <50.4 fl 12/13/2022 18:17 [facility] PLT 434(H) 141 - 377 K/cmm 12/13/2022 18:17 [facility] MPV 9.3(L) 9.5 - 12.7 fL 12/13/2022 18:17 [facility] % Neutrophils 65.9 % 12/13/2022 18:17 [facility] % Lymphocytes 25.1 % 12/13/2022 18:17 [facility] % Monocytes 8.2 % 12/13/2022 18:17 [facility] % Eosinophils 0.3 % 12/13/2022 18:17 [facility] % Basophils 0.3 % 12/13/2022 18:17 [facility] % Immature Grans 0.2 % 12/14/19 18:17 [facility] Absolute Neutrophils 11.39(H) 2.20 - 8.85 K/cmm 12/13/2022 18:17 [facility] Absolute Lymphocytes 4.33(H) 1.09 - 3.30 K/cmm 12/13/2022 18:17 [facility] Absolute Monocytes 1.41(H) 0.10 - 0.80 K/cmm 12/13/2022 18:17 [facility] Absolute Eosinophils 0.05 0.03 - 0.61 K/cmm 12/13/2022 18:17 [facility] ABS Basophils 0.05 0.01 - 0.11 K/cmm 12/13/2022 18:17 [facility] Absolute Immature Grans 0.04 0.00 - 0.06 K/cmm 12/13/2022 18:17 [facility] Type of Differential: Auto 12/13/2022 18:17 [facility] Blood VENOUS BLOOD / Unknown Venipuncture / Unknown 12/13/2022 18:04 EDT 12/13/2022 18:08 EDT us Fran Bush MD PACKAGES & DNA PROBE ORDERABLES Final Result [facility] [address] [place] [address] * (ABNORMAL) COMPREHENSIVE METABOLIC PANEL (CMP) (12/13/2022 18:04 EDT) Sodium 138 136 - 145 mmol/L 12/13/2022 18:27 [facility] Potassium 3.1(L) 3.5 - 5.0 mmol/L 12/13/2022 18:27 [facility] Chloride 94(L) 96 - 110 mmol/L 12/13/2022 18:27 [facility] CO2 Total 28 22 - 32 mmol/L 12/13/2022 18:27 [facility] Glucose 220(H) 70 - 99 mg/dl 12/13/2022 18:27 [facility] BUN 17 10 - 26 mg/dL 12/13/2022 18:27 [facility] Creatinine 0.43(L) 0.52 - 1.04 mg/dL 12/13/2022 18:27 [facility] eGFR 128 >60 mL/min/1.7 3m2 12/13/2022 18:27 [facility] Total Protein 7.4 6.3 - 8.2 g/dL 12/13/2022 18:27 [facility] Albumin 4.3 3.4 - 4.9 g/dL 12/13/2022 18:27 [facility] Alkaline Phosphatase 92 38 - 126 U/L 12/13/2022 18:27 [facility] AST 27 15 - 46 U/L 12/13/2022 18:27 [facility] ALT 31 <35 U/L 12/13/2022 18:27 [facility] Bilirubin, Total 0.6 <1.4 mg/dL 12/14/19 18:27 [facility] Calcium 9.8 8.5 - 10.5 mg/dL 12/13/2022 18:27 [facility] Albumin/Globulin Ratio 1.4 1.0 - 2.5 g/dL 12/13/2022 18:27 [facility] Anion Gap 16(H) 5 - 14 mmol/L 12/13/2022 18:27 [facility] Blood VENOUS BLOOD / Unknown Venipuncture / Unknown 12/13/2022 18:04 EDT 12/13/2022 18:08 EDT us Fran Bush MD CHEMISTRY & BLOOD GAS ORDERABLE S Final Result [facility] [address] [place] [address] * (ABNORMAL) POCT GLUCOSE, INTERFACED (12/13/2022 18:01 EDT) Glucose, POC 223(H) 70 - 100 mg/dL 12/13/2022 18:03 EDT [facility] HN LAB POC COMMENT (GLUCOSE) Test Performed by Nursing Services 12/13/2022 18:03 EDT [facility] Blood CAPILLARY BLOOD / Unknown 12/13/2022 18:01 EDT 12/13/2022 18:03 EDT us Provider Unknown POINT OF CARE TEST ORDERABLE S Final Result Performing Organization Address City/State/[facility] Co de Phone Number [facility] [address] [place] [address] documented in this encounter Visit Diagnoses Diagnosis [...] STAT 2046 (Given - Provid er: Margarette Arshad, MARCELO) lactated ringers BOLUS 1,000 mL (COMPLETED) [...] mL, oral, NOW X1, 1 dose, On 12/13/22 at 1845, STAT documented in this encounter Orders Medications Ordered That Stan ht Not Have Been Administered Count Last Ordered Date First Ordered Date lidocaine (XYLOCAINE) 2 % vi scous solution 15 mL 1 12/13/2022 documented in this encounter Care Teams First Breaker Feeder Relationship Specialty Start Date End Date Carrington Calderon MD 1 [facility] Level [address] [place] [phone] PCP - General Internal Medicine - Primary Care 12/09/20 documented as of this encounter
--- OUTSIDE RECORDS SUMMARY | 2024-05-31 00:38 | XMS_ITS | Encounter Summary ---
Author Organization [facility] Address [address] [place] [address] Care Team Providers Care Woodworking Machine Setter Name Role Phone Carrington Calderon MD Primary Care Provi anders Reason for Visit * Reason Onset Date Comments Medications Refill 01/11/2022 Encounter Details Date Type Department Care Team (Late st Contact Info) Description 01/11/2022 Refill [facility] Adult Primary Care [address] [phone] Carrington Calderon MD 1 [facility] Level [address] [place] [address] Medications Refill Social History Tobacco [...] of Assessment Author No 10/02/2020 23:50 River aCvanaugh RN * Are you blind or do [...] Date End Date traMADol (ULTRAM) 50 mg tablet TAKE 1 TABLET BY MOUTH EVERY 6 HOURS NEEDED FOR PAIN - DAILY MAX 4 TABLETS (200MG) 30 Tablet 01/12/2022 2 flash glucose sensor (FREESTYLE FLORA 14 DAY SENSOR) kit Inject 1 Kit into the skin every 14 days. 6 Kit 3 01/11/2022 2 documented in this encounter Miscellaneous Notes * [...] documented as of this encounter Care Teams Woodworking Machine Setter Relationship Specialty Start Date End Date Carrington Calderon MD 1 [facility] [address] [place] [phone] PCP - General Internal Medicine - Primary Care 12/09/20 documented as of this encounter
--- OUTSIDE RECORDS SUMMARY | 2024-05-31 00:38 | XMS_ITS | Encounter Summary ---
Author Organization [facility] Address [address] [place] [address] Care Team Providers Care Metal Spray Operator Name Role Phone Carrington Calderon MD Primary Care Provi anders Reason for Referral * Medication Prior Authorization - Authorized Specialty Diagnoses / Procedures Referred By Contlesli goode Referred To Contact Diagnoses Chronic midline low back pain without sciatica Nimisha Clifton NP [address] [address] Phone: tel: fax: Referral ID Status Reason Start Date Expiration Date V isits Requested Visits Authorized [id number] Authorized 08/05/2022 09/04/2023 1 1 Reason for Visit * Reason Comments Pre-op Exam Toe amputation Encounter Details Date Type Department Care Team (Late st Contact Info) Description 09/02/2022 11:15 EDT Office Visit [facility] Adult Primary Care - [address] [address] Nimisha Clifton NP [address] [phone] Osteomyelitis of left foot, unspecified [...] Date Author No 10/02/2020 23:50 EDT River Francisco, RN documented in this encounter Ordered Prescriptions Prescription Sig Dispense Quantity Refills Last Filled Start Date End Date lidocaine 5 % (LIDODERM) 5 % patchIndications:C hronic midline low back pain without sciatica Place 1 Patch onto the skin daily. Patch(es) may remain in place for up to 12 hours in any 24-hour period. 30 Patch 2 09/02/2022 traMADol (ULTRAM) 50 mg tabletIndications: Chronic midline low back pain without sciatica Take 1 Tablet by mouth every 6 hours as needed for Pain. Daily Max: 200 mg 30 Tablet 2 09/03/2022 3 nystatin (MYCOSTATIN) powder Apply topically to affected area 2 times daily as needed (rash). 15 g 2 09/02/2022 3 insulin aspart U-100 (NOVOLOG FLEXPEN) 100 unit/mL (3 mL) injectable penIndications:typ e 2 diabetes mellitus,as needed with meals. Inject 12 Units into the skin 3 times daily with meals. 30 mL 2 09/02/2022 3 documented in this encounter Progress Notes * [...] who presents today for preop. Surgery in [facility]. Hospitalized last week for infection [...] shares that she follows with endocrine in [facility], next visit in September. Believes her [...] polyneuropathy, with long-term current use of insulin ([facility]) ([facility]) ??? Gastroparesis ??? Neuropathic diabetic ulcer of foot ([facility]) ??? Tobacco use ??? Skin infection [...] has a referral for therapy. ??? Diabetes ([facility]) ([facility]) A1c 10.3 on 11/28/2019 - poorly controlled ??? Diabetes mellitus, type 2 ([facility]) ([facility]) pt check blood sugars at [...] occasionally ??? Neuropathic diabetic ulcer of foot ([facility]) 09/17/2021 ??? Obesity, unspecified ??? Osteomyelitis (HCC) (HCC-CMS) of left great toe-s/p amputation ??? Peripheral neuropathy 08/12/20- Bilateral feet-Takes Gabapentin- pt just started this med. ??? Productive cough pt currently quitting smoking- clear secretions. ??? Spontaneous miscarriage 09/04/201502/18, 08/19. Followed by Dr. López/[facility] in [facility] Past Surgical History: Procedure Laterality Date ??? [...] Diagnosis Osteomyelitis of left foot, unspecified type ([facility])- Primary Type 2 diabetes mellitus with diabetic polyneuropathy, with long-term current use of insulin ([facility]) Chronic midline low back pain [...] may reflect changes made after this encounter. empagliflozin (JARDIANCE ORAL) Take by mouth. 06/27/2023 added in this encounter Care Teams Metal Spray Operator Relationship Specialty Start Date End Date Carrington Calderon MD 1 [facility] Level [address] [place] [phone] PCP - General Internal Medicine - Primary Care 12/09/20 documented as of this encounter
--- OUTSIDE RECORDS SUMMARY | 2024-05-31 00:38 | XMS_ITS | Encounter Summary ---
Author Organization [facility] Address [address] [place] [address] Care Team Providers Care Forest Fire Equipment Operator Name Role Phone Carrington Calderon MD Primary Care Provi anders Reason for Visit * Reason Onset Date Comments Prior Auth, Medication 09/04/2022 Encounter Details Date Type Department Care Team (Late st Contact Info) Description 09/04/2022 Telephone [facility] Adult Primary Care [address] [phone] Carrington Calderon MD 1 [facility] Level [address] [place] [phone] Prior Auth, Medication Social History Tobacco [...] [id number] Group name: [employer] BIN: [id number] PCN: PA has been completed via ePa Awaiting reply documented in this encounter Plan of Treatment Not on file documented as of this encounter Visit Diagnoses Not on filedocumented in this encounter Care Teams Forest Fire Equipment Operator Relationship Specialty Start Date End Date Carrington Calderon MD 1 [facility] 1 [place] [phone] PCP - General Internal Medicine - Primary Care 12/09/20 documented as of this encounter
--- OUTSIDE RECORDS SUMMARY | 2024-05-31 00:38 | XMS_ITS | Encounter Summary ---
Author Organization [facility] Address [address] [place] [address] Care Team Providers Care Test Grader Name Role Phone Carrington Calderon MD Primary Care Provi anders Reason for Visit * Reason Comments Medication Management Follow-up Encounter Details Date Type Department Care Team (Late st Contact Info) Description 01/29/2022 11:00 EDT Telemedicine [facility] Adult Primary Care - [address] [phone] Carrington Calderon MD 1 [facility] Level 1 [place] [phone] Gastroparesis (Primary Dx); Tobacco use; Type 2 diabetes mellitus with diabetic polyneuropathy, with long-term current use of insulin ([facility] ([facility]); Chronic midline low back pain without sciatica; [...] of Assessment Author No 10/02/2020 23:50 EDT Rivre Francisco in, RN * Are you blind [...] Refills Last Filled Start Date End Date nicotine (NICODERM CQ) 14 mg/24 hr patchIndications:T obacco use Apply one patch only daily on skin without hair. Apply to a different skin site at the same time each day. 42 Patch 01/29/2022 3 nicotine (NICODERM CQ) 7 mg/24 hr patchIndications:T obacco use Apply one patch only daily on skin without hair. Apply to a different skin site at the same time each day. 14 Patch 01/29/2022 3 traMADol (ULTRAM) 50 mg tabletIndications: Chronic midline low back pain without sciatica Take 1 Tablet by mouth every 6 hours as needed for Pain. Daily Max: 200 mg 30 Tablet 5 01/29/2022 3 insulin aspart U-100 (NOVOLOG FLEXPEN) 100 unit/mL (3 mL) injectable penIndications:typ e 2 diabetes mellitus,as needed with meals. Inject 12 Units into the skin 3 times daily with meals. 30 mL 2 01/29/2022 3 nicotine (NICODERM CQ) 14 mg/24 hr patchIndications:T obacco use Apply one patch only daily on skin without hair. Apply to a different skin site at the same time each day. 14 Patch 01/29/2022 2 flash glucose sensor (FREESTYLE MITUL 14 DAY SENSOR) kitIndications:Typ e 2 diabetes mellitus with diabetic polyneuropathy, with long-term current use of insulin ([facility]) Inject 1 Kit into the skin every 14 days. 6 Kit 3 01/29/2022 2 documented in this encounter Progress Notes * [...] long-term current use of insulin ([facility] ([facility]): Diabetes remains uncontrolled per her most recent A1C of 9.7. According to her description, I am concerned that an increase in her Lantus dose could lead to dangerous hypoglycemia. I asked that she post her freestyle mitul data on [employer] for my review. She states that she [...] system when she attempted to go at [place]. I have asked my staff to follow-up [...] symptoms. She was seen in September in [place] emergency department for diabetic foot infection. She [...] was infected. She was referred to a patient care provider up in the [facility] and was treated with topical and [...] long-term current use of insulin ([facility]) Chronic midline low back pain without sciatica [...] documented as of this encounter Care Teams Test Grader Relationship Specialty Start Date End Date Carrington Calderon MD 1 [facility] 1 [place] [address] PCP - General Internal Medicine - Primary Care 12/09/20 documented as of this encounter
--- OUTSIDE RECORDS SUMMARY | 2024-05-31 00:38 | XMS_ITS | Encounter Summary ---
Author Organization [facility] Address [address] [place] [address] Care Team Providers Care Sliver Lap Machine Tender Name Role Phone Carrington Calderon MD Primary Care Provi anders Abigail Díaz Unavailable Carmelo Hendrickson Unavailable Unavailable Abigail Díaz Unavailable Reason for Visit * Reason Onset Date Comments Appointment Related 03/30/2022 Encounter Details Date Type Department Care Team (Late st Contact Info) Description 03/30/[address] [facility] Endocrinology - [address] [address] Lizette Veloz RPH Appointment Related [...] ----- Message from Lizette Veloz [facility] sent at 03/16/2022 14:47 EDT ----- Dr. [...] on filedocumented in this encounter Care Teams Sliver Lap Machine Tender Relationship Specialty Start Date End Date Carrington Calderon MD 1 [facility] 1 [place] [phone] PCP - General Internal Medicine - Primary Care 12/09/20 Abigail Díaz Geothermal Electrical Engineer 04/21/23 01/03/24 Carmeol Hendrickson Coordinator 12/01/23 Abigail Díaz Geothermal Electrical Engineer 01/04/24 documented as of this encounter
--- OUTSIDE RECORDS SUMMARY | 2024-05-31 00:38 | XMS_ITS | Encounter Summary ---
Author Organization [facility] Address [address] [place] [address] Care Team Providers Care Ice Resurfacing Machine Operators Name Role Phone Carrington Calderon MD Primary Care Provi anders Abigail Díaz Unavailable Carmelo Hendrickson Unavailable Unavailable Abigail Díaz Unavailable Encounter Details Date Type Department Care Team (Late st Contact Info) Description 09/13/2022 Lab Requisition [facility] Pathology & Laboratory Medicine - [address] [address] Ester Gabriel [address] [place] [address] Encounter for other general examination [...] explore management options, if applicable. 09/20/2022 10:01 [facility] Final Diagnosis A. TOE, LEFT 2ND, AMPUTATION: - Acute osteomyelitis. - Disarticulated joint margin negative for acute osteomyelitis. - Skin with ulceration, cellulitis and dermal fibrosis. 09/20/2022 10:01 [facility] Attestation By the signature below, the attending physician certifies that they have 1) personally conducted a gross and/or microscopic examination of the described specimen(s), and/or personally interpreted the results of laboratory testing of the described specimen(s), and 2) personally rendered or confirmed the above diagnosis. 09/20/2022 10:01 [facility] at 1001 Clinical History Osteomyelitis 09/20/2022 10:01 [facility] Gross Description A. Received [...] the resection margin is without gross lesions. Instructional Aide sections are submitted following acid decalcification as follows: BLOCK SHIELDS A1- perpendicular sections ulceration to include nearest skin and soft tissue margin A2- bone margin EUNICE RILEY(ASCP) 09/13/2022 13:00 09/20/2022 10:01 [facility] Performing Lab [facility] 10:01 [facility] Scanned Images 09/20/2022 10:01 [facility] Tissue TRAUMATIC AMPUTATION OF UPPER LIMB / Unknown 09/10/2022 9:17 EDT 09/13/2022 8:56 EDT Ester Gabriel PATHOLOGY ORDERABLES Final Resul t [facility] [address] [place] [address] documented in this encounter Visit Diagnoses Diagnosis Encounter for other general examination documented in this encounter Care Teams Ice Resurfacing Machine Operators Relationship Specialty Start Date End Date Carrington Calderon MD 1 [facility] Level [address] [place] [address] PCP - General Internal Medicine - Primary Care 12/09/20 Abigail Díaz Roll Weigher 04/21/23 01/03/24 Carmelo Hendrickson Coordinator 12/01/23 Abigail Díaz Roll Weigher 01/04/24 documented as of this encounter
--- OUTSIDE RECORDS SUMMARY | 2024-05-31 00:39 | XMS_ITS | Encounter Summary ---
Author Organization [facility] Address [address] [place] [address] Care Team Providers Care Senior Application Security Consultant Name Role Phone Carrington Calderon MD Primary Care Provi anders Encounter Details Date Type Department Care Team (Late st Contact Info) Description 04/22/2021 Orders Only [facility] Adult Primary Care - [place] [address] [place], [place] [phone] Carrington Calderon MD 1 [facility] Level 1 [place] [address] Type 2 diabetes mellitus with [...] Hurt Never 01/06/2020 Verbally Threaten Never 01/06/2020 Comments No Sex and Gender Information Value [...] Notes * Carrington Calderon MD - 04/22/2021 9763 EST I think we can skip lipids. If you look at the HM, she's due for an A1C, albumin/creatinine ratio and a hep C screen. Can you order those? Thanks. * Carrington Calderon MD - 04/22/2021 8253 EST All set. Thanks. documented in this encounter Plan of Treatment Not on file documented as of this encounter Visit Diagnoses Diagnosis Type 2 diabetes mellitus with hyperosmolarity without coma, with long-term current use of insulin ([facility] Primary Screening for hepatitis C declined Encounter for hepatitis C screening test for low risk patient documented in this encounter Care Teams Senior Application Security Consultant Relationship Specialty Start Date End Date Carrington Calderon MD 1 [facility] Level [address] [place] [address] PCP - General Internal Medicine - Primary Care 12/09/20 documented as of this encounter
--- OUTSIDE RECORDS SUMMARY | 2024-05-31 00:39 | XMS_ITS | Encounter Summary ---
Author Organization [facility] Address [address] [place] [address] Care Team Providers Care Feeder Catcher Name Role Phone Carrington Calderon MD Primary Care Provi anders Reason for Visit * Reason Onset Date Comments No Show 09/28/2021 Encounter Details Date Type Department Care Team (Late st Contact Info) Description 09/28/2021 Telephone [facility] Adult Primary Care [address] [phone] Carrington Calderon MD 1 [facility] Level 1 [place] [address] No Show Social History Tobacco [...] on filedocumented in this encounter Care Teams Feeder Catcher Relationship Specialty Start Date End Date Carrington Calderon MD 1 [facility] 1 [place] [address] PCP - General Internal Medicine - Primary Care 12/09/20 documented as of this encounter
--- OUTSIDE RECORDS SUMMARY | 2024-05-31 00:39 | XMS_ITS | Encounter Summary ---
Author Organization [facility] Address [address] [place] [address] Care Team Providers Care Correctional Casework Specialist Name Role Phone Carrington Calderon MD Primary Care Provi anders Abigail Díaz Unavailable [phone] Carmelo Hendrickson Unavailable Unavailable Abigail Díaz Unavailable Reason for Visit * Reason Onset Date Comments Medications Refill 12/31/2020 Encounter Details Date Type Department Care Team (Late st Contact Info) Description 12/31/2020 Refill [facility] Adult Primary Care - [address] [phone] Carrington Calderon MD 1 [facility] Level 1 [place] [phone] Medications Refill Social History Tobacco Use Types [...] Refills Last Filled Start Date End Date LORazepam (ATIVAN) 0.5 mg tablet Take 1 [...] documented as of this encounter Care Teams Correctional Casework Specialist Relationship Specialty Start Date End Date Carrington Calderon MD 1 [facility] 1 [place] [address] PCP - General Internal Medicine - Primary Care 12/09/20 Abigail Díaz Malariologist 04/21/23 01/03/24 Carmelo Hendrickson Coordinator 12/01/23 Abigail Díaz Malariologist 01/04/24 documented as of this encounter
--- OUTSIDE RECORDS SUMMARY | 2024-05-31 00:39 | XMS_ITS | Encounter Summary ---
Author Organization [facility] Address [address] [place] [address] Care Team Providers Care Heel Seat Trimmer Name Role Phone Carrington Calderon MD Primary Care Provi anders Reason for Visit * Reason Onset Date Comments Medications Refill 08/25/2021 Encounter Details Date Type Department Care Team (Late st Contact Info) Description 08/25/2021 Refill [facility] Adult Primary Care [address] [phone] Carrington Calderon MD 1 [facility] Level 1 [place] [phone] Medications Refill Social History Tobacco Use Types [...] PAIN, DAILY MAX: 200MG 30 Tablet 08/25/2021 2 gabapentin (NEURONTIN) 300 mg capsuleIndications:D iabetic polyneuropathy associated with type 2 diabetes mellitus (HCC-CMS) Take 300mg in the morning and 900mg in the evening 120 capsule 11 08/25/2021 3 documented in this encounter Miscellaneous Notes [...] as of this encounter Care Teams Heel Seat Trimmer Relationship Specialty Start Date End Date Carrington Calderon MD 1 [facility] Level 1 [place] [address] PCP - General Internal Medicine - Primary Care 12/09/20 documented as of this encounter
--- OUTSIDE RECORDS SUMMARY | 2024-05-31 00:39 | XMS_ITS | Encounter Summary ---
Author Organization [facility] Address [address] [place] [address] Care Team Providers Care Pumper Hand Name Role Phone Carrington Calderon MD Primary Care Provi anders Reason for Visit * Reason Comments Medication Management Encounter Details Date Type Department Care Team (Late st Contact Info) Description 06/11/2021 9:45 EST Office Visit [facility] Adult Primary Care - [place] [address], [place] [address] Carrington Calderon MD 1 [facility] Level 1 [place] [phone] Type 2 diabetes mellitus with hyperosmolarity without coma, with long-term current use of insulin ([facility] ([facility]) (Primary Dx); Anxiety; Chronic midline low back pain without sciatica; Anxiety and depression; Gastroparesis; Diabetic polyneuropathy associated with type 2 diabetes mellitus ([facility]) (HCC); Mid back pain Social History Tobacco [...] EDRiver Srivastava RN documented in this encounter Patient Instructions [...] emergency department For the diabetes -Down the [employer] rena -If you have trouble using this to connect to your device, let me know documented in this encounter Ordered Prescriptions Prescription Sig Dispense Quantity Refills Last Filled Start Date End Date ondansetron (ZOFRAN-ODT) 4 mg disintegrating tabletIndications:[place] stroparesis Take 1 Tablet by mouth every 8 hours as needed for Nausea. 30 Tablet 11 06/11/2021 2 LORazepam (ATIVAN) 0.5 mg tabletIndications:An xiety Take 1 Tablet by mouth daily as needed for Anxiety. Daily Max: 0.5 mg 30 Tablet 3 06/11/2021 2 gabapentin (NEURONTIN) 300 mg capsuleIndications:D iabetic polyneuropathy associated with type 2 diabetes mellitus (HCC-CMS) Take 300mg in the morning and 900mg in the evening 120 capsule 1 06/11/2021 2 documented in this encounter Progress Notes * Carrington Calderon MD - 06/11/2021 0945 EST Primary Care Office Visit Assessment & Plan Diagnoses and all orders for this visit: Type 2 diabetes mellitus with hyperosmolarity without coma, with long-term current use of insulin ([facility] ([facility]): By description, it sounds like glucose is responding well to the changes that were made last year. However, she does not have her freestyle mitul readings available today, and we do not have a recent A1c. I recommended getting an A1c as soon as she is able. I have sent an order to [place]. - HEMOGLOBIN A1C Anxiety: Continue lorazepam for [...] of the lumbar spine. Order sent to [place]. - XR LUMBAR SPINE 2-3 VIEWS Anxiety [...] type 2 diabetes mellitus ([facility] ([facility]): Symptoms persist.Continue gabapentin. - gabapentin [...] was seen in the emergency department in [place] for recurrence ofintractable nausea and vomiting with [...] with long-term current use of insulin ([facility])- Primary Anxiety Anxiety state, unspecified Chronic midline low back pain without sciatica Anxiety and depression Dysthymic disorder Gastroparesis Diabetic polyneuropathy associated with type 2 diabetes mellitus ([facility]) Mid back pain Backache, unspecified documented in [...] may reflect changes made after this encounter. ondansetron (ZOFRAN-ODT) 4 mg disintegrating tablet Take 4 mg by mouth every 8 hours as needed for Nausea. 2 added in this encounter Care Teams Pumper Hand Relationship Specialty Start Date End Date Carrington Calderon MD 1 [facility] Level 1 [place] [phone] PCP - General Internal Medicine - Primary Care 12/09/20 documented as of this encounter
--- OUTSIDE RECORDS SUMMARY | 2024-05-31 00:39 | XMS_ITS | Encounter Summary ---
Author Organization [facility] Address [address] [place] [address] Care Team Providers Care Windows Technical Specialist Name Role Phone Carrington Calderon MD Primary Care Provi anders Reason for Visit * Reason Onset Date Comments Heartburn 01/26/2021 Encounter Details Date Type Department Care Team (Late st Contact Info) Description 01/26/2021 Telephone [facility] Adult Primary Care - [place] 1 [place], [place] [address] Carrington Calderon MD 1 [facility] Level 1 [place] [address] Heartburn Social History Tobacco Use [...] by mouth daily. 90 capsule 3 01/26/2021 2 documented in this encounter Miscellaneous Notes * Telephone Encounter - Eryn Navarrete RN - 01/26/2021 1652 EDT Spoke with patient and reviewed She [...] already taking any heartburn medications? Could do [id number] daily if not. * Telephone Encounter - [...] filedocumented in this encounter Care Teams Windows Technical Specialist Relationship Specialty Start Date End Date Carrington Calderon MD 1 [facility] 1 [place] [address] PCP - General Internal Medicine - Primary Care 12/09/20 documented as of this encounter
--- OUTSIDE RECORDS SUMMARY | 2024-05-31 00:39 | XMS_ITS | Encounter Summary ---
Author Organization [facility] Address [address] [place] [address] Care Team Providers Care Civil Division Deputy Sheriff Name Role Phone Carrington Calderon MD Primary Care Provi anders Encounter Details Date Type Department Care Team (Late st Contact Info) Description 02/12/2021 Orders Only [facility] Adult Primary Care - [place] 1 [place], [place] [address] Carrington Calderon MD 1 [facility] Level 1 [place] [address] Osteomyelitis of great toe of [...] Primary documented in this encounter Care Teams Civil Division Deputy Sheriff Relationship Specialty Start Date End Date Carrington Calderon MD 1 [facility] 1 [place] [phone] PCP - General Internal Medicine - Primary Care 12/09/20 documented as of this encounter
--- OUTSIDE RECORDS SUMMARY | 2024-05-31 00:39 | XMS_ITS | Encounter Summary ---
Author Organization [facility] Address [address] [place] [address] Care Team Providers Care Environmental Studies Program Director Name Role Phone Carrington Calderon MD Primary Care Provi anders Reason for Visit * Reason Onset Date Comments Medications Refill 11/30/2021 Encounter Details Date Type Department Care Team (Late st Contact Info) Description 11/30/2021 Refill [facility] Adult Primary Care [address] [phone] Carrington Calderon MD 1 [facility] Level 1 [place] [address] Medications Refill Social History Tobacco [...] before next fill. * Telephone Encounter - Alma Rosa Navarrete - 12/04/2021 0918 EDT Patient called back [...] on filedocumented in this encounter Care Teams Environmental Studies Program Director Relationship Specialty Start Date End Date Carrington Calderon MD 1 [facility] 1 [place] [phone] PCP - General Internal Medicine - Primary Care 12/09/20 documented as of this encounter
--- OUTSIDE RECORDS SUMMARY | 2024-05-31 00:39 | XMS_ITS | Encounter Summary ---
Author Organization [facility] Address [address] [place] [address] Care Team Providers Care Geek Squad Manager Name Role Phone Carrington Calderon MD Primary Care Provi anders Encounter Details Date Type Department Care Team (Late st Contact Info) Description 12/04/2021 Orders Only [facility] Adult Primary Care - [place] 1 [place], [place] [phone] Carrington Calderon MD 1 [facility] Level 1 [place] [address] Social History Tobacco Use Types [...] MAX 4 TABLETS (200MG) 30 Tablet 12/04/2021 2 documented in this encounter Plan of Treatment [...] documented as of this encounter Care Teams Geek Squad Manager Relationship Specialty Start Date End Date Carrington Calderon MD 1 [facility] Level 1 [place] [address] PCP - General Internal Medicine - Primary Care 12/09/20 documented as of this encounter
--- OUTSIDE RECORDS SUMMARY | 2024-05-31 00:39 | XMS_ITS | Encounter Summary ---
Author Organization [facility] Address [address] [place] [address] Care Team Providers Care Bilingual Administrative Assistant Name Role Phone Carrington Calderon [...] on filedocumented in this encounter Care Teams Bilingual Administrative Assistant Relationship Specialty Start Date End Date Carrington Calderon MD 1 [facility] 1 [place] [address] PCP - General Internal Medicine - Primary Care 12/09/20 documented as of this encounter
--- OUTSIDE RECORDS SUMMARY | 2024-05-31 00:39 | XMS_ITS | Encounter Summary ---
Author Organization [facility] Address [address] [place] [address] Care Team Providers Care Assistant Inventory Manager Name Role Phone Carrington Calderon MD Primary Care Provi anders Reason for Visit * Reason Onset Date Comments Referral Request 12/09/2020 GI Encounter Details Date Type Department Care Team (Late st Contact Info) Description 12/09/2020 Telephone [facility] Adult Primary Care [facility] 1 [place], [place] [phone] Tonja Alejandro PA-C [address] [place] [address] [place] [phone] Referral Request (GI) Social History Tobacco [...] Entry Date Author No 10/02/2020 23:50 EDT [place], Krist in, RN documented in this encounter Miscellaneous Notes [...] Gastroparesis documented in this encounter Care Teams Assistant Inventory Manager Relationship Specialty Start Date End Date Carrington Calderon MD 1 [facility] Level 1 [place] [address] PCP - General Internal Medicine - Primary Care 12/09/20 documented as of this encounter
--- OUTSIDE RECORDS SUMMARY | 2024-05-31 00:39 | XMS_ITS | Encounter Summary ---
Author Organization [facility] Address [address] [place] [address] Care Team Providers Care Glaze Handler Name Role Phone Carrington Calderon MD Primary Care Provi anders Reason for Visit * Reason Onset Date Comments Medications Refill 06/17/2021 Encounter Details Date Type Department Care Team (Late st Contact Info) Description 06/17/2021 Telephone [facility] Adult Primary Care [address] [phone] Carrington Calderon MD 1 [facility] Level [address] [place] [phone] Medications Refill Social History Tobacco Use Types [...] End Date traMADol (ULTRAM) 50 mg tablet Take 1 Tablet by mouth every 6 hours as needed for Pain. Daily Max: 200 mg 30 Tablet 06/17/2021 07/10/2021 documented in this encounter Miscellaneous Notes * Telephone Encounter - Karen Trujillo - 06/17/2021 1113 EST Patient notified via voicemail. * Telephone Encounter - Carrington Calderon MD - 06/17/2021 1046 EST Refilled. Thanks. * Telephone Encounter - Karen Trujillo - 06/17/2021 0928 EST Patient was seen and asked about this at her appointment. Medication(s) Requested: Tramadol Preferred Pharmacy: [place] Is patient out of medication? Yes Last [...] documented as of this encounter Care Teams Glaze Handler Relationship Specialty Start Date End Date Carrington Calderon MD 1 [facility] Level [address] [place] [phone] PCP - General Internal Medicine - Primary Care 12/09/20 documented as of this encounter
--- OUTSIDE RECORDS SUMMARY | 2024-05-31 00:39 | XMS_ITS | Encounter Summary ---
Author Organization [facility] Address [address] [place] [address] Care Team Providers Care Tinter Photograph Name Role Phone Carrington Calderon MD Primary Care Provi adners Reason for Visit * Reason Comments Other Encounter Details Date Type Department Care Team (Late st Contact Info) Description 09/13/2021 [facility] Adult Primary Care [facility] [address] [place], [place] [phone] Carrington Calderon MD 1 [facility] Level [address] [place] [address] Other Social History Tobacco Use [...] MAX 4 TABLETS (200MG) 30 Tablet 09/20/2021 2 documented in this encounter Miscellaneous Notes * Telephone Encounter - Eryn Pack RN - 09/14/2021 0913 EDT traMADol (ULTRAM) 50 mg tablet [[id number]] ?? Order Details Dose, Route, Frequency: As [...] documented as of this encounter Care Teams Tinter Photograph Relationship Specialty Start Date End Date Carrington Calderon MD 1 [facility] [address] [place] [address] PCP - General Internal Medicine - Primary Care 12/09/20 documented as of this encounter
--- OUTSIDE RECORDS SUMMARY | 2024-05-31 00:39 | XMS_ITS | Encounter Summary ---
Author Organization [facility] Address [address] [place] [address] Care Team Providers Care Filter Tank Tender Helper Head Name Role Phone Carrington Calderon MD Primary Care Provi anders Reason for Visit * Reason Onset Date Comments Emesis 11/16/2021 24 hours- vomitt ing/ toe infection Encounter Details Date Type Department Care Team (Late st Contact Info) Description 11/16/2021 Telephone [facility] Adult Primary Care - [address] [phone] Carrington Calderon MD 1 [facility] Level [address] [place] [address] Emesis (24 hours- vomitting/ toe [...] OK. Thanks. * Telephone Encounter - Jackie Madsen, MARCELO - 11/16/2021 1339 EDT Spoke with Fermin, he reports pt has not improved and he is going home to take her to the [facility] ED. Let him know that PCP's last OV note stated that pt should be seen in an OV if vomiting for more than 24 hours. He reports they would like a referral to the foot Dr, normally goes to [facility]. (Looks like pt missed OV.)They will [...] last seen 06/11/21. Also missed OV at [facility]. * Telephone Encounter - Olive Munguia [...] filedocumented in this encounter Care Teams Filter Tank Tender Helper Head Relationship Specialty Start Date End Date Carrington Calderon MD 1 [facility] [address] [place] [address] PCP - General Internal Medicine - Primary Care 12/09/20 documented as of this encounter
--- OUTSIDE RECORDS SUMMARY | 2024-05-31 00:39 | XMS_ITS | Encounter Summary ---
Author Organization [facility] Address [address] [place] [address] Care Team Providers Care Hydrodynamicist Name Role Phone Carrington Calderon MD Primary Care Provi anders Reason for Visit * Reason Comments Skin Ulcer * Consult (Routine) - Authorization Not Required Specialty Diagnoses / Procedures Referred By Kit goode Referred To Contact Orthopedic Surgery Diagnoses Diabetic ulcer of right great toe (HCC-CMS) Katiana Adams NP [address] [facility] [place] [address] Phone: tel: Elza Navarro DPM Phone: tel: fax: Referral ID Status Reason Start Date Expiration Date Visits Requested Visits Authorized [id number] Authorization Not Required 1 1 Encounter Details Date Type Department Care Team (Late Contact Info) Description 09/17/2021 15:[address] [facility] - [address] [place] [address] Fadi Barahona NP [address] [place] [address] Neuropathic diabetic ulcer of foot [...] documented in this encounter Progress Notes * Fadi Barahona NP - 09/17/2021 1500 EDT Images from the original note were not included. Diagnosis: ICD-10-CM ICD-9-CM 1. Neuropathic diabetic ulcer of foot ([facility]) E11.40 250.60 OFFLOADING SURGICAL SHOE (L3260) E11.621 250.80 L97.509 357.2 707.15 right great toe 2. Type 2 diabetes mellitus with diabetic polyneuropathy, with long-term current use of insulin ([facility]) ([facility]) E11.42 250.60 OFFLOADING SURGICAL SHOE (L3260) [...] the next morning they went to the [facility] in [place], [place] where she was prescribed antibiotics. She [...] managed by Mary Zafar NP, at the [facility] but, ever since Mary [...] 2020 after an ulcer got infected. Work: [id number] Foot & Ankle Pain Assessment: Pain Orientation : Right Pain Location: Toe (GRT) Numeric Pain Level (Scale 1-10): 0 Pain in another site? : No Past medical history, medications and allergies were noted in [facility]. The patient did not fill out the intake form Patient Active Problem List Diagnosis Date Noted ??? Neuropathic diabetic ulcer of foot ([facility]) 09/17/2021 ??? Chronic midline low back pain without sciatica 11/26/2019 ??? Chronic left ear pain 09/04/2015 ??? Gastroparesis 08/10/2020 ??? Type 2 diabetes mellitus with diabetic polyneuropathy, with long-term current use of insulin ([facility]) ([facility]) 06/05/2020 ??? Family history of rheumatoid [...] referral for therapy. ??? Diabetes ([facility]) A1c 10.3 on 11/28/2019 - poorly controlled ??? Diabetes mellitus, type 2 ([facility]) pt check blood sugars at home- [...] 0 ??? blood glucose test strips Brand: [employer] Precision Cristo, use as directed if Freestyle [...] VIGNESH 2 SENSOR) kit 1 Device by [facility] (non- drug; combo route) route continuous. 6 [...] current use of insulin ([facility]) ([facility]) OFFLOADING SURGICAL SHOE (L3260) Other Orders [...] with speech recognition software or keyboard data management specialist techniques. Minor irregularities or keyboarding misprints [...] 22 documented in this encounter Care Teams Hydrodynamicist Relationship Specialty Start Date End Date Carrington Calderon MD 1 [facility] [address] [place] [phone] PCP - General Internal Medicine - Primary Care 12/09/20 documented as of this encounter
--- OUTSIDE RECORDS SUMMARY | 2024-05-31 00:39 | XMS_ITS | Encounter Summary ---
Author Organization [facility] Address [address] [place] [address] Care Team Providers Care Optometric Aide Name Role Phone Carrington Calderon MD Primary Care Provi anders Reason for Visit * Reason Onset Date Comments No Show 02/18/2021 Encounter Details Date Type Department Care Team (Late st Contact Info) Description 02/18/2021 Telephone [facility] Adult Primary Care - [address] [phone] Carrington Calderon MD 1 [facility] Level [address] [place] [address] No Show Social History Tobacco [...] encounter Miscellaneous Notes * Telephone Encounter - Gaudette, Karen - 02/19/2021 1047 EDT Patient has had [...] on filedocumented in this encounter Care Teams Optometric Aide Relationship Specialty Start Date End Date Carrington Calderon MD 1 [facility] Level [address] [place] [phone] PCP - General Internal Medicine - Primary Care 12/09/20 documented as of this encounter
--- OUTSIDE RECORDS SUMMARY | 2024-05-31 00:39 | XMS_ITS | Encounter Summary ---
Author Organization [facility] Address [address] [place] [address] Care Team Providers Care Pipe Fitter Name Role Phone Carrington Calderon MD Primary Care Provi anders Reason for Visit * (Routine/Next Available) - Receiving Office to Obtain Authorization Specialty Diagnoses / Procedures Referred By Kit goode Referred To Contact Procedures XR OUTSIDE IMAGES MSK Unknown, Provider, Referral ID Status Reason Start Date Expiration Date Visits Requested Visits Authorized [id number] Receiving Office to Obtain Authorization 09/12/2021 1 1 Encounter Details Date Type Department Care Team (Latest Contact Info) Description 09/12/2021 16:35 EDT - 09/12/2021 23:59 EDT Hospital Encounter [facility] Secondary Reads [place] Discharge Disposition: Home [...] Touch Verio Flex meter. 1 Each 10/04/2019 2 blood glucose test strips Brand: [employer] Precision Cristo, use as directed if Freestyle Vignesh censor isnt working 100 Each 3 10/06/2020 4 blood glucose test strips One Touch Verio IQ or other brand compatible with meter and covered by patient's insurance. Testing QID. 100 Each 5 08/11/2020 4 flash glucose scanning reader ([employer]YLE VIGNESH 2 READER) misc 1 Device by misc (non-drug; combo route) route continuous. 1 Each 10/01/2020 2 flash glucose sensor (FREESTYLE VIGNESH 2 SENSOR) kit 1 Device by mis (non-drug; combo route) route continuous. 6 Kit 3 10/01/2020 2 gabapentin (NEURONTIN) 300 mg capsuleIndications: Diabetic polyneuropathy associated with type 2 diabetes mellitus ([facility]) Take 300mg in the morning and 900mg in the evening 120 capsule 11 08/25/2021 3 insulin aspart U-100 (NOVOLOG FLEXPEN) 100 unit/mL (3 mL) injectable penIndications:type 2 diabetes mellitus,as needed with meals. Inject 9 Units into the skin 3 times daily with meals. 30 mL 2 03/21/2020 2 insulin glargine (LANTUS SOLOSTAR) 100 unit/mL (3 mL) injection pen Inject 30 Units into the skin at bedtime for 90 days. 27 mL 3 12/04/2019 2 insulin pen needles 31G x /16Indications:Ty pe 2 diabetes mellitus with hyperglycemia, with long-term current use of insulin ([facility]) Use 1 pen needle as directed 4 times daily. 400 Each 2 09/02/2020 3 lancets Brand: Freestyle, use as directed if Freestyle Vignesh censor isnt working 100 Each 3 10/06/2020 3 lancets One Touch Delica or other brand compatible with lancing device and covered by patient's insurance. 100 Each 5 10/01/2020 3 lidocaine 5 % (LIDODERM) 5 % patch Place 1 Patch onto the skin daily. Patch(es) may remain in place for up to 12 hours in any 24-hour period. 30 Patch 03/27/2021 2 LORazepam (ATIVAN) 0.5 mg tabletIndications:A nxiety Take 1 Tablet by mouth daily as needed for Anxiety. Daily Max: 0.5 mg 30 Tablet 3 06/11/2021 2 metoclopramide HCl (REGLAN) 10 mg tablet Take 1 Tablet by mouth 3 times daily before meals for 90 days. 270 Tablet 3 11/20/2020 2 Miscellaneous Medication - See Admin Instructions Dispense one lancing device, generic brand as covered by insurance. 1 Each 10/07/2020 2 omeprazole (PRILOSEC) 20 mg capsule Take 1 capsule by mouth daily. 90 capsule 3 01/26/2021 2 ondansetron (ZOFRAN-ODT) 4 mg disintegrating tabletIndications:G astroparesis Take 1 Tablet by mouth every 8 hours as needed for Nausea. 30 Tablet 11 06/11/2021 2 SITagliptin (JANUVIA) 50 mg tablet Take 1 Tab by mouth daily. 90 Tab 3 09/02/2020 2 TENS unit and electrodes combo pack 1 Each by misc (non-drug; combo route) route daily. 1 Each 08/01/2020 2 traMADol (ULTRAM) 50 mg tablet TAKE 1 TABLET BY MOUTH EVERY 6 HOURS NEEDED FOR PAIN, DAILY MAX: 200MG 30 Tablet 08/25/2021 2 documented as of this encounter Discharge Disposition [...] 16:35 EDT This is a non-reportable exam. us Provider Unknown MD BUTLER OTHER IMAGING ORDERABLES Final Result documented in this encounter Visit Diagnoses Not on filedocumented in this encounter Care Teams Pipe Fitter Relationship Specialty Start Date End Date Carrington Calderon MD 1 [facility] 1 [place] [phone] PCP - General Internal Medicine - Primary Care 12/09/20 documented as of this encounter
--- OUTSIDE RECORDS SUMMARY | 2024-05-31 00:39 | XMS_ITS | Encounter Summary ---
Author Organization [facility] Address [address] [place] [address] Care Team Providers Care Dater Assembler Name Role Phone Carrington Calderon MD Primary Care Provi anders Abigail Díaz Unavailable [phone] Carmelo Hendrickson Unavailable Unavailable Abigail Díaz Unavailable Reason for Visit * Reason Onset Date Comments Appointment Related 04/06/2021 Appointment reminder Encounter Details Date Type Department Care Team (Late st Contact Info) Description 04/06/2021 Telephone [facility] General Surgery - [address] [phone] Britta Cox, CLINICAL TECH [address] [facility], [address] [place] [address] Appointment Related (Appointment reminder ) [...] Entry Date Author No 10/02/2020 23:50 EDT Pickens, Krist in, RN documented in this encounter Miscellaneous Notes * Telephone Encounter - Daniella Batista MA - 04/06/2021 1352 EDT Called pt. 2x and left message at 1:35pm w/ televideo appt. reminder documented in this encounter Plan of Treatment Not on file documented as of this encounter Visit Diagnoses Not on filedocumented in this encounter Care Teams Dater Assembler Relationship Specialty Start Date End Date Carrington Calderon MD 1 [facility] 1 [place] [address] PCP - General Internal Medicine - Primary Care 12/09/20 Abigail Díaz Centrifugal Supervisor 04/21/23 01/03/24 Carmelo Hendrickson Coordinator 12/01/23 Abigail Díaz Centrifugal Supervisor 01/04/24 documented as of this encounter
--- OUTSIDE RECORDS SUMMARY | 2024-05-31 00:39 | XMS_ITS | Encounter Summary ---
Author Organization [facility] Address [address] [place] [address] Care Team Providers Care Software Integrator Name Role Phone Carrington Calderon MD Primary [...] 20:55 EDT - 01/26/2021 1:16 EDT Emergency [facility] Emergency Department - [address] [id number] Mark Thibodeaux PA-C [address] [place] [phone] Siobhan Hare PA-C [address] [place] [phone] Non-intractable vomiting with nausea, unspecified vomiting [...] through Care Everywhere. * Nausea and Vomiting (Estonian) documented in this encounter Medications at Time [...] Testing QID. 100 Each 5 08/11/2020 4 capsaicin (ZOSTRIX) 0.025 % topical cream Apply up to 2 times daily over abdomen, shoulders and arms as needed for abdominal pain and nausea 1 Tube 1 10/01/2020 1 flash glucose scanning reader (FREESTYLE VIGNESH 2 READER) misc 1 Device by [facility] (non-drug; combo route) route continuous. 1 Each 10/01/2020 2 flash glucose sensor (FREESTYLE VIGNESH 2 SENSOR) kit 1 Device by [facility] (non-drug; combo route) route continuous. 6 Kit 3 10/01/2020 2 gabapentin (NEURONTIN) 100 mg capsule Take 1 capsule by mouth 2 times daily before breakfast and lunch. 180 capsule 1 12/04/2020 1 gabapentin (NEURONTIN) 300 mg capsule Take 1 capsule by mouth daily. Take 1 cap in the evening. (In addition to 100mg gabapentin twice daily) 90 capsule 2 12/04/2020 1 insulin aspart U-100 (NOVOLOG FLEXPEN) 100 unit/mL [...] 12/04/2019 2 insulin pen needles 31G x 5/16Indications:T ype 2 diabetes mellitus with hyperglycemia, with long-term current use of insulin ([facility]) Use 1 pen [...] in any 24-hour period. 10 Patch 10/22/2020 1 LORazepam (ATIVAN) 0.5 mg tablet Take 1 Tablet by mouth 3 times daily as needed for Anxiety. Daily Max: 1.5 mg 30 Tablet 12/31/2020 1 metoclopramide HCl (REGLAN) 10 mg tablet Take 1 Tablet by mouth 3 times daily before meals for 90 days. 270 Tablet 3 11/20/2020 2 mirtazapine (REMERON) 15 mg tablet Take 1 Tab by mouth at bedtime. 30 Tab 2 10/10/2020 1 Miscellaneous Medication - See Admin Instructions Dispense one lancing device, generic brand as covered by insurance. 1 Each 10/07/2020 2 nicotine (NICODERM CQ) 7 mg/24 hr patch Apply one patch only daily on skin without hair. Apply to a different skin site at the same time each day. 14 Patch 06/13/2020 1 SITagliptin (JANUVIA) 50 mg tablet Take 1 Tab by mouth daily. 90 Tab 3 09/02/2020 2 TENS unit and electrodes combo pack 1 Each by misc (non-drug; combo route) route daily. 1 Each 08/01/2020 2 traMADol (ULTRAM) 50 mg tablet Take 1 Tab by mouth every 6 hours as needed for Pain. Daily Max: 200 mg 30 Tab 11/04/2020 2 documented as of this encounter Discharge Disposition Disposition Code Departure Means Destination Home or Self Skilled Nursing documented in this encounter ED Notes * Mignon Valera RN - 01/26/2021 0116 EDT Pt and spouse verbalized understanding of d/c paperwork and deny questions at this time. Pt and spouse ambulated out of ED * Mignon Valera RN - 01/26/2021 0110 EDT I, MIGNON VALERA RN, notified EUNICE Sands of 4+ Ketones [...] (02/17/2021 18:18 EDT) 02/17/2021 18:1 8 EDT us Scan 2 [employer] Batch Plant Operator PROCEDURE/MINOR SURGICAL OR DERABLES Final Result * (ABNORMAL) POCT URINE DIPSTICK, CLINITEK (01/26/2021 0:21 EDT) Color, UA Yellow Yellow 01/26/2021 0:23 [facility] Clarity, UA Clear Clear 01/26/2021 0:23 [facility] Glucose, UA 2+(A) Negative mg/dL 01/26/2021 0:23 [facility] Bilirubin, UA Negative Negative 01/26/2021 0:23 [facility] Ketones, UA 4+(AA) Negative mg/dL 01/26/2021 0:23 [facility] Specific [place], Urine >=1.030 1.001 - 1.035 01/26/2021 0:23 [facility] Blood, UA Negative Negative 01/26/2021 0:23 [facility] pH, UA 6.0 <=8 01/26/2021 0:23 [facility] Protein, UA Negative Negative mg/dL 01/26/2021 0:23 [facility] Urobilinogen, UA 0.2 0.2 - 1.0 EU/dL 01/26/2021 0:23 [facility] Nitrite, UA Negative Negative 01/26/2021 0:23 EDT [facility] Leuk Esterase Negative Negative 01/26/2021 0:23 EDT [facility] HN LAB COMMENT (CLINITEK, UR) Test performed at Emergency Department 01/26/2021 0:23 EDT [facility] Urine URINE SPECIMEN COLLECTION, CLEAN CATCH / Unknown 01/26/2021 0:21 EDT 01/26/2021 0:23 EDT Mark Thibodeaux PA-C POINT OF CARE TEST ORDERABLE S Final Result Performing Organization Address [facility] de Phone Number [facility] [address] [place] [address] * POCT TEST, CLINITEK (01/26/2021 0:16 EDT) [facility] UPT Result Negative Negative 01/26/2021 0:23 EDT [facility] HN LAB COMMENT (CLINITEK, UPT) Test performed at Emergency Department 01/26/2021 0:23 EDT [facility] Comment:False negative resul ts may occur in women who are beyond 5-8 weeks gestation. Diagnosis of should be based on a correlation of test results with typical clinical signs and symptoms. Urine URINE SPECIMEN COLLECTION, CLEAN CATCH / Unknown 01/26/2021 0:16 EDT 01/26/2021 0:23 EDT Mark Thibodeaux PA-C POINT OF CARE TEST ORDERABLE S Final Result Performing Organization Address [facility] Co de Phone Number [facility] [address] [place] [address] * POCT CSN BARCODE URINE PREG TEST (01/26/2021 0:01 EDT) Urine URINE SPECIMEN COLLECTION, CLEAN CATCH / Unknown Urine Collect / Unknown 01/26/2021 0:01 EDT 01/26/2021 0:01 EDT Mark Thibodeaux PA-C LAB INFO SERVICE AND SUPPORT & PHONE RESULT Final Result Performing Organization Address [facility]/ZIP Co de Phone Number [facility] [address] [place] [address] * POCT CSN BARCODE URINE DIPSTICK (01/26/2021 0:01 EDT) Urine URINE SPECIMEN COLLECTION, CLEAN CATCH / Unknown Urine Collect / Unknown 01/26/2021 0:01 EDT 01/26/2021 0:01 EDT us Mark Thibodeaux PA-C LAB INFO SERVICE AND SUPPORT & PHONE RESULT Final Result Performing Organization Address [facility] Co de Phone Number [facility] [address] [place] [address] * (ABNORMAL) BETA HYDROXYBUTYRATE (01/25/2021 21:55 EDT) Beta Hydroxybutyrate 2.2(H) <0.4 mmol/L 01/25/2021 22:23 EDT [facility] Blood VENOUS BLOOD / Unknown Venipuncture / Unknown 01/25/2021 21:55 EDT 01/25/2021 21:57 EDT us Mark Thibodeaux PA-C CHEMISTRY & BLOOD GAS ORDERA BLES Final Result Performing Organization Address [facility] Co de Phone Number [facility] [address] [place] [address] * (ABNORMAL) BASIC METABOLIC PANEL (BMP) (01/25/2021 21:55 EDT) Sodium 139 136 - 145 mmol/L 01/25/2021 22:18 EDT [facility] Potassium 3.7 3.5 - 5.0 mEq/L 01/25/2021 22:18 EDT [facility] Chloride 103 96 - 110 mEq/L 01/25/2021 22:18 EDT [facility] CO2 Total 22 22 - 32 mEq/L 01/25/2021 22:18 EDT [facility] Glucose 246(H) 70 - 100 mg/dL 01/25/2021 22:18 EDT [facility] Calcium 8.8 8.5 - 10.5 mg/dL 01/25/2021 22:18 EDT [facility] Calculated Calcium 8.9 8.5 - 10.5 mg/dL 01/25/2021 22:18 EDT [facility] BUN 11 10 - 26 mg/dL 01/25/2021 22:18 EDT [facility] Creatinine 0.48(L) 0.52 - 1.04 mg/dL 01/25/2021 22:18 EDT [facility] eGFR 127 >60 mL/min/1.7 3m2 01/25/2021 22:18 EDT [facility] Comment:eGFR calculated gil curtis CKD-EPI equation for non- Americans. Multiply eGFR by 1.16 for patients. Blood VENOUS BLOOD / Unknown Venipuncture / Unknown 01/25/2021 21:55 EDT 01/25/2021 21:57 EDT Mark Thibodeaux PA-C CHEMISTRY & BLOOD GAS ORDERA BLES Final Result [facility] [address] [place] [address] * EKG 12-LEAD (01/25/2021 21:12 EDT) 01/25/2021 21:1 2 EDT Narrative [facility] EKG - 02/17/2021 18:13 EDT ?[facility] Emergency ? Test Date: ?2021-01-25 Pat Name: ? CRISTY LUO ?Department: ?? ED ? Room: ? WB05 Gender: ? Female ? Intravenous Therapy Nurse: ?? : ?1985 ? Requested By: ANA Forman Order Number: [id number] ? [place] MD: ?? AGA FAIRCHILD MD ? Measurements Intervals ?[place] ? Rate: ? 66 ? P: ?74 WI: ? 136 ?QRS: ?5 QRSD: ? 98 [...] Pat Name: CRISTY LUO Department: ED Room: [facility] Gender: Female Intravenous Therapy Nurse: : 1985 Requested By: ANA Forman Order Number: [id number] [place] MD: AGA FAIRCHILD MD Measurements Intervals [place] Rate: 66 P: 74 WI: 136 QRS: 5 QRSD: 98 T: -4 QT: 410 QTc: 430 Interpretive Statements SINUS RHYTHM WITH MARKED SINUS ARRHYTHMIA Automated Interpretation. Provider Interpretation to follow. Compared to ECG 12/06/2020 21:43:43 T-wave abnormality no longer present I reviewed the tracing and have either agreed or edited the findings inthis report. Electronically Signed On 02-17-2021 18:13:34 EDT by DAVID MARTÍNEZ. Mark Thibodeaux PA-C CARDIAC ECG ORDERABLES Final Result [facility] EKG documented in this encounter Visit Diagnoses [...] 2145, STAT 2200 (Given - Provider: Mignon Valera, MARCELO) lactated ringers BOLUS 1,000 mL (COMPLETED) 1,000 mL, intravenous, NOW X1, 1 dose, On 01/25/21 at 2145, STAT 2200 (New Bag - Provider: Mignon Valera, MARCELO)2339 (Completed - Provider: Nanda Gibson, MARCELO) metoclopramide (REGLAN) injection 10 mg (COMPLETED) 10 mg, intravenous, NOW X1, 1 dose, On 01/25/21 at 2145, STAT 2200 (Given - Provider: Mignon Valera, MARCELO) ondansetron (PF) (ZOFRAN) injection 4 mg (COMPLETED) 4 mg, intravenous, NOW X1, 1 dose, On 01/25/21 at 2315, STAT 2340 (Given - Provider: Wan Gibson, MARCELO) documented in this encounter Orders Medications Ordered That Stan ht Not Have Been Administered Count Last Ordered Date First Ordered Date capsaicin (CAPZASIN-HP) 0.1 % cream 1 01/25 documented in this encounter Care Teams Software Integrator Relationship Specialty Start Date End Date Carrington Calderon MD 1 [facility] [address] [place] [address] PCP - General Internal Medicine - Primary Care 12/09/20 documented as of this encounter
--- OUTSIDE RECORDS SUMMARY | 2024-05-31 00:39 | XMS_ITS | Encounter Summary ---
Author Organization [facility] Address [address] [place] [address] Care Team Providers Care Oracle Financials Developer Name Role Phone Carrington Calderon MD Primary Care Provi anders Reason for Visit * Reason Comments New Patient Visit Gastroparesis * Consult (Routine/Next Available) - Order Cancelled Specialty Diagnoses / Procedures Referred By Contact Referred To Contact Gastroenterology and Hepatology Diagnoses Gastroparesis Carrington Calderon MD Phone: tel:[phone] fax:[phone] [facility] Gastroenterology [address] [address] Phone: tel: fax: Referral ID Status Reason Start Date Expiration Date Visits Requested Visits Authorized [id number] Order Cancelled Specialty Services Required 06/11/2021 1 1 Encounter Details Date Type Department Care Team (Late st Contact Info) Description 10/09/2021 11:20 EDT Office Visit [facility] Gastroenterology [address] [address] Scott Arzate MD [address] [place] [address], [facility] [address] [place] [address] Gastroparesis (Primary Dx) Social History [...] Imaging: Lab Results Component Value Date ALT 12/06/2020 AST 22 12/06/2020 ALKPHOS 105 12/06/2020 [...] Primary documented in this encounter Care Teams [employer] Financ[employer] Developer Relationship Specialty Start Date End Date Carrington Calderon MD 1 [facility] Level [address] [place] [address] PCP - General Internal Medicine - Primary Care 12/09/20 documented as of this encounter
--- OUTSIDE RECORDS SUMMARY | 2024-05-31 00:39 | XMS_ITS | Encounter Summary ---
Author Organization [facility] Address [address] [place] [address] Care Team Providers Care Hat Finishing Materials Preparer Name Role Phone Carrington Calderon MD Primary Care Provi anders Reason for Visit * Reason Comments Other Encounter Details Date Type Department Care Team (Late st Contact Info) Description 07/09/2021 [facility] Adult Primary Care [facility] [address] [place], [place] [address] Carrington Calderon MD 1 [facility] Level [address] [place] [address] Other Social History Tobacco Use [...] encounter Miscellaneous Notes * Telephone Encounter - Love, Jesi, RN - 07/10/2021 1539 EST Dx Chronic midline low back pain without sciatica- M54.50, G89.29 Reviewed chart and pt has been taking both lorazepam and tramadol throughout 2020 Pharmacy notified about this info * Telephone Encounter - Berenice Mahan - 07/10/2021 1226 EST Sydnee from [facility] pharmacy calling to requestion some information. 1)She would like to know the associated diagnosis with the tramadol for their records. 2)She is also wondering if provider is aware she is taking tramadol and lorazepam. * Telephone Encounter - Jesi Love RN - 07/10/2021 1122 EST Medication(s) Requested: tramadol Preferred Pharmacy: [facility] Is patient out of medication? Unknown [...] documented as of this encounter Care Teams Hat Finishing Materials Preparer Relationship Specialty Start Date End Date Carrington Calderon MD 1 [facility] 1 [place] [address] PCP - General Internal Medicine - Primary Care 12/09/20 documented as of this encounter
--- OUTSIDE RECORDS SUMMARY | 2024-05-31 00:39 | XMS_ITS | Encounter Summary ---
Author Organization [facility] Address [address] [place] [address] Care Team Providers Care Director Of Hospitality Name Role Phone Carrington Calderon MD Primary Care Provi anders Reason for Visit * Reason Comments Other Encounter Details Date Type Department Care Team (Late st Contact Info) Description 03/16/2021 [facility] Adult Primary Care [facility] 1 [place], [place] [address] Carrington Calderon MD 1 [facility] Level [address] [place] [address] Other Social History Tobacco Use [...] in this encounter Care Teams Director Of Hospitality Relationship Specialty Start Date End Date Carrington Calderon MD 1 [facility] 1 [place] [address] PCP - General Internal Medicine - Primary Care 12/09/20 documented as of this encounter
--- OUTSIDE RECORDS SUMMARY | 2024-05-31 00:39 | XMS_ITS | Encounter Summary ---
Author Organization [facility] Address [address] [place] [address] Care Team Providers Care Inspector Receiving Name Role Phone Carrington Calderon MD Primary Care Provi anders Reason for Visit * Reason Onset Date Comments Medications Refill 10/30/2021 tramadol / lo razepam Encounter Details Date Type Department Care Team (Late st Contact Info) Description 10/30/2021 Refill [facility] Adult Primary Care - [address] [address] Carrington Calderon MD 1 [facility] Level [address] [place] [address] Medications Refill (tramadol / lorazepam) [...] Date End Date LORazepam (ATIVAN) 0.5 mg tabletIndications: Anxiety Take 1 Tablet by mouth daily as needed for Anxiety. Daily Max: 0.5 mg 30 Tablet 3 10/30/2021 3 traMADol (ULTRAM) 50 mg tablet TAKE 1 TABLET BY MOUTH EVERY 6 HOURS NEEDED FOR PAIN - DAILY MAX 4 TABLETS (200MG) 30 Tablet 10/30/2021 2 documented in this encounter Miscellaneous Notes [...] documented as of this encounter Care Teams Inspector Receiving Relationship Specialty Start Date End Date Carrington Calderon MD 1 [facility] 1 [place] [address] PCP - General Internal Medicine - Primary Care 12/09/20 documented as of this encounter
--- OUTSIDE RECORDS SUMMARY | 2024-05-31 00:39 | XMS_ITS | Encounter Summary ---
Author Organization [facility] Address [address] [place] [address] Care Team Providers Care Eyelet Row Marker Name Role Phone Carrington Calderon MD Primary Care Provi adners Reason for Visit * Reason Onset Date Comments Medications Refill 03/12/2021 Encounter Details Date Type Department Care Team (Late st Contact Info) Description 03/12/2021 Telephone [facility] Adult Primary Care - [place] [address] [place], [place] [address] Carrington Calderon MD 1 [facility] Level [address] [place] [address] Medications Refill Social History Tobacco [...] tabletIndications: Anxiety Take 1 Tablet by mouth 3 times daily as needed for Anxiety. Daily Max: 1.5 mg 10 Tablet 03/17/2021 03/27/2021 LORazepam (ATIVAN) 0.5 mg tabletIndications: Anxiety Take 1 Tablet by mouth 3 times daily as needed for Anxiety. Daily Max: 1.5 mg 30 Tablet 03/17/2021 03/17/2021 documented in this encounter Miscellaneous Notes * Telephone Encounter - Mily Torres - 03/19/2021 0819 EDT Patient has been scheduled for 03/27 * Telephone Encounter - Jesi Lua RN [...] 0914 EDT Medication(s) Requested: Lorazepam Preferred Pharmacy: [facility] Is patient out of medication? Yes Last [...] documented as of this encounter Care Teams Eyelet Row Marker Relationship Specialty Start Date End Date Carrington Calderon MD 1 [facility] 1 [place] [address] PCP - General Internal Medicine - Primary Care 12/09/20 documented as of this encounter
--- OUTSIDE RECORDS SUMMARY | 2024-05-31 00:39 | XMS_ITS | Encounter Summary ---
Author Organization [facility] Address [address] [place] [address] Care Team Providers Care Drum Stenciler Name Role Phone Carrington Calderon MD Primary Care Provi anders Reason for Visit * Reason Comments Nutrition Counseling * Consult (See Order Priority) - Order Cancelled Specialty Diagnoses / Procedures Referred By Contact Referred To Contact Nutrition / Gastroenterology and Hepatology Diagnoses Gastroparesis Scott Arzate MD Phone: tel:[phone] fax: [facility] Gastroenterology [address] [address] Phone: tel: fax: Referral ID Status Reason Start Date Expiration Date Visits Requested Visits Authorized [id number] Order Cancelled Specialty Services Required 10/09/2021 1 1 Encounter Details Date Type Department Care Team (Late st Contact Info) Description 10/14/2021 11:00 EDT Nutrition [facility] Gastroenterology [address] [address] Savita Curtis, LUCILLE [address] [place] [phone] Gastroparesis; Type 2 diabetes mellitus with diabetic [...] documented in this encounter Progress Notes * Savita Curtis RD - 10/14/2021 1100 EDT Nutrition Services Medical Nutrition Therapy Initial Nutrition Assessment SUBJECTIVE: Cristy Luo is 36 y.o. female here for medical nutrition therapy for diabetes (insulin requiring), and gastroparesis. Recently moved to [place], [place]. Reports frequent nausea, early satiety. Has [...] has a referral for therapy. ??? Diabetes ([facility]) A1c 10.3 on 11/28/2019 - poorly [...] glucose test strips ??? flash glucose sensor (FREESTYLE FLORA 2 SENSOR) kit ??? gabapentin (NEURONTIN) [...] My Chart, and web resources for gastroparesis ([employer]) Stella has recently moved to [place], and is in the process of establishing a PCP and licensing and registration director. Encouraged obtaining new meter for closer monitoring of blood glucose levels. Encouraged activity/movement on a daily basis, especially after eating. PLAN: Nutrition Recommendations and Goals: 1. Diet for gastroparesis- lower fat, modified textures to soft/blended, modified high fiber foods 2. Continue to follow diet guidelines for DM, re-establish care w/ licensing and registration director, perhaps at Exercise/Activity Recommendations: exercise/activity as tolerated Educational materials provided: Diet for Gastroparesis Method: Handout and Verbal Taught to: Patient Barriers: None Outcomes: verbalized understanding I spent a total of 45 minutes with Cristy Luo today and 40 minutes of that time was spent incounseling and coordination of care as described in the progress note. Savita Curtis RD [phone] documented in this encounter Plan of Treatment Not on file documented as of this encounter Visit Diagnoses Diagnosis Gastroparesis Type 2 diabetes mellitus with diabetic polyneuropathy, with long-term current use of insulin ([facility]) documented in this encounter Care Teams Drum Stenciler Relationship Specialty Start Date End Date Carrington Calderon MD 1 [facility] Level 1 [place] [phone] PCP - General Internal Medicine - Primary Care 12/09/20 documented as of this encounter
--- OUTSIDE RECORDS SUMMARY | 2024-05-31 00:39 | XMS_ITS | Encounter Summary ---
Author Organization [facility] Address [address] [place] [address] Care Team Providers Care Amusement Machine Mechanic Name Role Phone Unavailable Primary Care [...] 21:17 EDT - 12/07/2020 1:52 EDT Emergency [facility] Emergency Department - [address] [address] Fran Barbosa MD [address] [place] [address], Level [address] [place] [address] Andrés Garcia MD [address] [place] [phone] Nausea and vomiting, intractability of vomiting [...] 013 EDT Temperature 37.1 ??C (98.7 ??F) 12/07/2020135 EDT Respiratory Rate 16 12/07/2020135 EDT Oxygen Saturation 98% 12/07/2020135 EDT Inhaled Oxygen Concentration - - Weight 95.3 kg (210 lb) 12/06/20202115 EDT Height - - Body Mass Index 36.05 11/04/2020 1406 EDT documented in this encounter Functional Status * Are you deaf or do you have serious difficulty hearing? Answer Date of Assessment Author No 10/02/2020 23:50 EDRiver Srivastava RN * Are you blind or do [...] through Care Everywhere. * Nausea and Vomiting (Danish) documented in this encounter Medications at Time of Discharge acetaminophen (TYLENOL) 325 mg tablet Take 2 Tabs by mouth every 4 hours as needed for Pain. 08/20/2020 blood glucose meter One Touch Verio Flex meter. 1 Each 10/04/2019 2 blood glucose test strips Brand: PonoMusic Cristo, use as directed if Freestyle Vignesh [...] hyperglycemia, with long-term current use of insulin ([facility]) Use 1 pen needle as directed 4 times daily. 400 Each 2 09/02/2020 3 lancets Brand: Freestyle, use as directed if Freestyle Vigneshnigel guzmanor isnt working 100 Each 3 10/06/2020 3 [...] Daily Max: 1.5 mg 30 Tablet 12/05/2020 1 metoclopramide HCl (REGLAN) 10 mg tablet [...] Health Care Facility documented in this encounter ED Notes * [...] ketones on 12/07/2020 at 0026. * Megha Dc, RN - 12/06/2020 2208 EDT 22:08 Pt arrives to ED via [...] 5 units of insulin given as per AUG. Pt speaking in full sentences. Resp even and unlabored. No acute distress noted. Pending results and disposition. 0:28 MD Garcia made aware of +4 ketones in pt's urine. * Fran Barbosa MD - 12/06/20206 EDT DOS: 12/06/2020 Scribe Attestation: This documentation [...] emesis all day today. Endorses abd pain. Perhusband Fermin, pt more lethargic and confused. Pt not answering many quesyions in triage. Tachy, otherwise VSS, FS 306. Has hs of DM and gastroperesis . Endorses marijuana daily. CINTHYA Luo is a pleasant 35 y.o. female [...] (12/11/2020 16:37 EDT) 12/11/2020 16:3 7 EDT us Scan 2 Transactional Attorney PROCEDURE/MINOR SURGICAL OR DERABLES Final Result * (ABNORMAL) POCT URINE DIPSTICK, CLINITEK (12/07/2020 0:20 EDT) Color, UA Yellow Yellow 12/07/2020 0:26 [facility] Clarity, UA Clear Clear 12/07/2020 0:26 [facility] Glucose, UA 2+(A) Negative mg/dL 12/07/2020 0:26 [facility] Bilirubin, UA Negative Negative 12/07/2020 0:26 [facility] Ketones, UA 4+(AA) Negative mg/dL 12/07/2020 0:26 [facility] Specific [place], Urine 1.025 1.001 - 1.035 12/07/2020 0:26 [facility] Blood, UA Negative Negative 12/07/2020 0:26 [facility] pH, UA 7.0 <=8 12/07/2020 0:26 [facility] Protein, UA Negative Negative mg/dL 12/07/2020 0:26 [facility] Urobilinogen, UA 0.2 0.2 - 1.0 EU/dL 12/07/2020 0:26 [facility] Nitrite, UA Negative Negative 12/07/2020 0:26 [facility] Leuk Esterase Negative Negative 12/07/2020 0:26 [facility] HN LAB COMMENT (CLINITEK, UR) Test performed at Emergency Department 12/07/2020 0:26 [facility] Urine URINE SPECIMEN COLLECTION, CLEAN CATCH / Unknown 12/07/2020 0:20 EDT 12/07/2020 0:26 EDT Fran Barbosa MD POINT OF CARE TEST OR DERABLES Final Result Performing Organization Address [facility] de Phone Number [facility] [address] [place] [address] * POCT TEST, CLINITEK (12/07/2020 0:08 EDT) UPT Result Negative Negative 12/07/2020 0:14 EDT [facility] HN LAB COMMENT (CLINITEK, UPT) Test performed at Emergency Department 12/07/2020 0:14 EDT [facility] Comment:False negative resul ts may occur in women who are beyond 5-8 weeks gestation. Diagnosis of should be based on a correlation of test results with typical clinical signs and symptoms. Urine URINE SPECIMEN COLLECTION, CLEAN CATCH / Unknown 12/07/2020 0:08 EDT 12/07/2020 0:14 EDT Fran Barbosa MD POINT OF CARE TEST OR DERABLES Final Result Performing Organization Address [facility] de Phone Number [facility] [address] [place] [address] * POCT CSN BARCODE URINE PREG TEST (12/07/2020 0:06 EDT) Urine URINE SPECIMEN COLLECTION, CLEAN CATCH / Unknown Urine Collect / Unknown 12/07/2020 0:06 EDT 12/07/2020 0:06 EDT Fran Barbosa MD LAB INFO SERVICE AND SUPPORT & PHONE RESULT Final Result Performing Organization Address [facility] Co de Phone Number [facility] [address] [place] [address] * POCT CSN BARCODE URINE DIPSTICK (12/07/2020 0:06 EDT) Urine URINE SPECIMEN COLLECTION, CLEAN CATCH / Unknown Urine Collect / Unknown 12/07/2020 0:06 EDT 12/07/2020 0:06 EDT Fran Barbosa MD LAB INFO SERVICE AND SUPPORT & PHONE RESULT Final Result [facility] [address] [place] [address] * (ABNORMAL) BASIC METABOLIC PANEL (BMP) (12/06/2020 23:42 EDT) Sodium 141 136 - 145 mEq/L 12/07/2020 0:08 [facility] Potassium 4.0 3.5 - 5.0 mEq/L 12/07/2020 0:08 [facility] Chloride 99 96 - 110 mEq/L 12/07/2020 0:08 [facility] CO2 Total 29 22 - 32 mEq/L 12/07/2020 0:08 [facility] Glucose 248(H) 70 - 100 mg/dL 12/07/2020 0:08 [facility] Calcium 9.8 8.5 - 10.5 mg/dL 12/07/2020 0:08 [facility] Calculated Calcium 9.9 8.5 - 10.5 mg/dL 12/07/2020 0:08 [facility] BUN 11 10 - 26 mg/dL 12/07/2020 0:08 [facility] Creatinine 0.45(L) 0.52 - 1.04 mg/dL 12/07/2020 0:08 [facility] eGFR 130 >60 mL/min/1.7 3m2 12/07/2020 0:08 [facility] Comment:eGFR calculated gil curtis CKD-EPI equation for non- Americans. Multiply eGFR by 1.16 for patients. Blood VENOUS BLOOD / Unknown Venipuncture / Unknown 12/06/2020 23:42 EDT 12/06/2020 23:45 EDT Fran Juanito Familia MD CHEMISTRY & BLOOD GAS ORDERABLES Final Result [facility] [address] [place] [address] * EKG 12-LEAD (12/06/2020 21:43 EDT) 12/06/2020 21:4 3 EDT Narrative [facility] EKG - 12/11/2020 16:34 EDT ?[facility] Emergency ? Test Date: ?2020-12-06 Pat Name: ? CRISTY LUO ?Department: ?? ED ? Room: ? AC07 Gender: ? Female ? Transportation Logistics Internship: ?? : ?1985 ? Requested By: FAMILIA GAYLE Order Number: [id number] ? Reading MD: ?? TRACE NOYOLA MD ? Measurements Intervals ?[place] ? Rate: ? 86 ? P: ?8 TN: ? 132 ?QRS: ?15 QRSD: ? 92 [...] Note Carolina Noyola MD - 12/11/2020 [facility] Emergency Test Date: 2020-12-06 Pat Name: CRISTY LUO Department: ED Room: [facility] Gender: Female Transportation Logistics Internship: : 1985 Requested By: FAMILIA SANCHEZ Order Number: [id number] Reading MD: CAROLINA NOYOLA MD Measurements Intervals [place] Rate: 86 P: 8 TN: 132 QRS: 15 QRSD: 92 T: -8 QT: 347 QTc: 417 Interpretive Statements SINUS RHYTHM WITH MARKED SINUS ARRHYTHMIA NONSPECIFIC T-WAVE ABNORMALITY Compared to ECG 10/02/2020 19:04:59 Sinus arrhythmia now prsent I reviewed the tracing and have either agreed or edited the findings inthis report. Electronically Signed On 12-11-2020 16:34:31 EDT by CAROLINA RICHTER. us Fran Barbosa MD CARDIAC ECG ORDERABLE S Final Result [facility] EKG * (ABNORMAL) BETA HYDROXYBUTYRATE (12/06/2020 21:30 EDT) Beta Hydroxybutyrate 2.0(H) <0.4 mmol/L 12/06/2020 22:19 EDT [facility] Blood VENOUS BLOOD / Unknown Venipuncture / Unknown 12/06/2020 21:30 EDT 12/06/2020 21:35 EDT Fran Barbosa MD CHEMISTRY & BLOOD GAS ORDERABLES Final Result Performing Organization Address City/[facility]/ZIP Co de Phone Number [facility] [address] [place] [address] * LIPASE (12/06/2020 21:30 EDT) Pathologist [facility] [place] Lipase 97 <251 U/L 12/06/2020 22:06 EDT [facility] Blood VENOUS BLOOD / Unknown Venipuncture / Unknown 12/06/2020 21:30 EDT 12/06/2020 21:35 EDT Fran Barbosa MD CHEMISTRY & BLOOD GAS ORDERABLES Final Result Performing Organization Address City/[facility] Co de Phone Number [facility] [address] [place] [address] * (ABNORMAL) COMPREHENSIVE METABOLIC PANEL (CMP) (12/06/2020 21:30 EDT) Pathologist [facility] [place] Sodium 142 136 - 145 mEq/L 12/06/2020 22:06 EDT [facility] Potassium 3.8 3.5 - 5.0 mEq/L 12/06/2020 22:06 EDT [facility] Chloride 97 96 - 110 mEq/L 12/06/2020 22:06 EDT [facility] CO2 Total 26 22 - 32 mEq/L 12/06/2020 22:06 EDT [facility] Glucose 288(H) 70 - 100 mg/dL 12/06/2020 22:06 [facility] BUN 12 10 - 26 mg/dL 12/06/2020 22:06 [facility] Creatinine 0.50(L) 0.52 - 1.04 mg/dL 12/06/2020 22:06 [facility] eGFR 126 >60 mL/min/1.7 3m2 12/06/2020 22:06 [facility] Comment:eGFR calculated gil curtis CKD-EPI equation for non- Americans. Multiply eGFR by 1.16 for patients. Total Protein 7.7 6.3 - 8.2 g/dL 12/06/2020 22:06 [facility] Albumin 4.9 3.4 - 4.9 g/dL 12/06/2020 22:06 [facility] Alkaline Phosphatase 105 38 - 126 U/L 12/06/2020 22:06 [facility] AST 22 15 - 46 U/L 12/06/2020 22:06 [facility] ALT 21 <35 U/L 12/06/2020 22:06 [facility] Bilirubin, Total <0.5 <1.4 mg/dL 12/07/19 22:06 [facility] Calcium 10.6(H) 8.5 - 10.5 mg/dL 12/06/2020 22:06 [facility] Calculated Calcium 9.9 8.5 - 10.5 mg/dL 12/06/2020 22:06 [facility] Blood VENOUS BLOOD / Unknown Venipuncture / Unknown 12/06/2020 21:30 EDT 12/06/2020 21:35 EDT us Fran Barbosa MD CHEMISTRY & BLOOD GAS ORDERABLES Final Result [facility] [address] [place] [address] * (ABNORMAL) COMPLETE BLOOD COUNT AND DIFFERENTIAL (12/06/2020 21:30 EDT) WBC 14.54(H) 4.00 - 12.40 K/cmm 12/06/2020 21:47 [facility] RBC 4.97 3.86 - 5.04 M/cmm 12/06/2020 21:47 [facility] Hemoglobin 15.5(H) 11.6 - 15.2 gm/dL 12/06/2020 21:47 [facility] HCT 42.8 34.9 - 44.4 % 12/06/2020 21:47 [facility] MCV 86 81 - 98 fl 12/06/2020 21:47 [facility] MCH 31.2 26.7 - 33.3 pg 12/06/2020 21:47 [facility] MCHC 36.2(H) 32.1 - 35.9 gm/dL 12/06/2020 21:47 [facility] RDW-CV 12.2 <14.7 % 12/06/2020 21:47 [facility] RDW-SD 38.5 <50.4 fl 12/06/2020 21:47 [facility] PLT 383(H) 141 - 377 K/cmm 12/06/2020 21:47 [facility] MPV 9.7 9.5 - 12.7 fl 12/06/2020 21:47 [facility] % Neutrophils 84.9 % 12/06/2020 21:47 [facility] % Lymphocytes 10.7 % 12/06/2020 21:47 [facility] % Monocytes 4.0 % 12/06/2020 21:47 [facility] % Eosinophils 0.0 % 12/06/2020 21:47 [facility] % Basophils 0.1 % 12/06/2020 21:47 [facility] % Immature Grans 0.3 % 12/07/19 21:47 [facility] Absolute Neutrophils 12.34(H) 2.20 - 8.85 K/cmm 12/06/2020 21:47 EDT [facility] Absolute Lymphocytes 1.55 1.09 - 3.30 K/cmm 12/06/2020 21:47 EDT [facility] Absolute Monocytes 0.58 0.10 - 0.80 K/[facility] 12/06/2020 21:47 EDT [facility] Absolute Eosinophils 0.00(L) 0.03 - 0.61 K/[facility] 12/06/2020 21:47 EDT [facility] ABS Basophils 0.02 0.01 - 0.11 K/[facility] 12/06/2020 21:47 T [facility] Absolute Immature Grans 0.05 0.00 - 0.06 K/[facility] 12/06/2020 21:47 T [facility] Type of Differential: Auto 12/06/2020 21:47 EDT [facility] Blood VENOUS BLOOD / Unknown Venipuncture / Unknown 12/06/2020 21:30 EDT 12/06/2020 21:35 EDT us Fran Barbosa MD PACKAGES & DNA PROBE ORDERABLES Final Result [facility] [address] [place] [address] * BLOOD BANK HOLD (12/06/2020 21:30 EDT) Hold BB Spec will exp at 23:59, 3 days from collect date 12/06/2020 21:54 EDT [facility] BLOOD BANK Blood VENOUS BLOOD / Unknown Venipuncture / Unknown 12/06/2020 21:30 EDT 12/06/2020 21:37 EDT us Fran Barbosa MD BLOOD BANK TESTS Penny l Result [facility] BLOOD BANK [address] [place] [address] * HOLD SST (12/06/2020 21:30 EDT) Hold Hold 12/06/2020 22:45 EDT [facility] Blood VENOUS BLOOD / Unknown Venipuncture / Unknown 12/06/2020 21:30 EDT 12/06/2020 21:35 EDT us Fran Barbosa MD LAB INFO SERVICE AND SUPPORT & PHONE RESULT Final Result [facility] [address] [place] [address] * HOLD LAVENDER TOP (12/06/2020 21:30 EDT) Hold Hold 12/06/2020 22:45 EDT [facility] Blood VENOUS BLOOD / Unknown Venipuncture / Unknown 12/06/2020 21:30 EDT 12/06/2020 21:35 EDT us Fran Barbosa MD LAB INFO SERVICE AND SUPPORT & PHONE RESULT Final Result [facility] [address] [place] [address] * HOLD GREEN TOP (12/06/2020 21:30 EDT) Hold Hold 12/06/2020 22:45 EDT [facility] Blood VENOUS BLOOD / Unknown Venipuncture / Unknown 12/06/2020 21:30 EDT 12/06/2020 21:35 EDT us Fran Barbosa MD LAB INFO SERVICE AND SUPPORT & PHONE RESULT Final Result [facility] [address] [place] [address] * HOLD BLUE TOP (12/06/2020 21:30 EDT) Hold Hold 12/06/2020 22:45 EDT [facility] Blood VENOUS BLOOD / Unknown Venipuncture / Unknown 12/06/2020 21:30 EDT 12/06/2020 21:35 EDT us Fran Barbosa MD LAB INFO SERVICE AND SUPPORT & PHONE RESULT Final Result [facility] [address] [place] [address] * (ABNORMAL) POCT GLUCOSE, INTERFACED (12/06/2020 21:13 EDT) Glucose, POC 304(H) 70 - 100 mg/dL 12/06/2020 21:17 EDT [facility] HN LAB POC COMMENT (GLUCOSE) Test Performed by Nursing Services 12/06/2020 21:17 EDT [facility] Blood CAPILLARY BLOOD / Unknown 12/06/2020 21:13 EDT 12/06/2020 21:17 EDT us Provider Joe MARTÍNEZ POINT OF CARE TEST ORDERABLE S Final Result Performing Organization Address City/[facility]/ZIP Co de Phone Number [facility] [address] [place] [address] documented in this encounter Visit Diagnoses Diagnosis [...]
--- OUTSIDE RECORDS SUMMARY | 2024-05-31 00:39 | XMS_ITS | Encounter Summary ---
Author Organization [facility] Address [address] [place] [address] Care Team Providers Care Digital Media Intern Name Role Phone Carrington Calderon MD Primary Care Provi anders Reason for Visit * Reason Comments Medications Refill Diabetes Encounter Details Date Type Department Care Team (Late st Contact Info) Description 03/27/2021 13:30 EDT Office Visit [facility] Adult Primary Care - [address] [id number] Avelino Dowling MD [address] [place] [id number] Diabetes 1.5, managed as type 2 (HCC) [...] Date End Date gabapentin (NEURONTIN) 300 mg capsule Take 300mg in the morning and 900mg in the evening 120 capsule 1 03/27/2021 2 lidocaine 5 % (LIDODERM) 5 % patch Place 1 Patch onto the skin daily. Patch(es) may remain in place for up to 12 hours in any 24-hour period. 30 Patch 03/27/2021 2 LORazepam (ATIVAN) 0.5 mg tabletIndications: Anxiety Take 1 Tablet by mouth daily as needed for Anxiety. Daily Max: 0.5 mg 30 Tablet 03/27/2021 2 documented in this encounter Progress Notes * Avelino Dowling MD - 03/27/2021 1330 EDT [facility] DEPARTMENT OF INTERNAL MEDICINE [facility]IMARY [facility] DATE: 03/27/2021 PATIENT NAME: Cristy Luo AGE: [...] and depression ??? Type 2 diabetes mellitus ([facility]) ??? Chronic left ear pain ??? Family history of rheumatoid arthritis ??? Cellulitis of great toe of left foot ??? Chronic midline low back pain without sciatica ??? Diabetic foot infection (HCC-CMS) ([facility]) ??? Diabetic foot ulcer (HCC-CMS) ([facility]) ??? Diabetic foot ulcer associated with diabetes mellitus due to underlying condition (HCC-CMS) ([facility]) ??? Osteomyelitis of great toe of left foot (HCC-CMS) ([facility]) ??? 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 (HCC-CMS) ([facility]) ??? Osteomyelitis of toe of left foot ([facility]) ??? Type 2 diabetes mellitus with diabetic polyneuropathy, with long-term current use of insulin (HCC-CMS) ([facility]) ??? Hx of ectopic ??? Admission for sterilization ??? Gastroparesis ??? Intractable vomiting ??? Vomiting Medications Prior to Today's Visit Medication Sig ??? acetaminophen (TYLENOL) 325 mg tablet Take 2 Tabs by mouth every 4 hours as needed for Pain. ??? blood glucose meter One Touch Verio Flex meter. ??? blood glucose test strips Brand: [employer] Cristo, use as directed if Freestyle Vignesh [...] VIGNESH 2 READER) misc 1 Device by [facility] (non-drug; comboroute) route continuous. ??? flash glucose sensor (FREESTYLE VIGNESH 2 SENSOR) kit 1 Device by [facility] (non- drug; combo route) route continuous. ??? [...] Diagnosis Diabetes 1.5, managed as type 2 ([facility])- Primary Type II or unspecified type [...] may reflect changes made after this encounter. insulin glargine (LANTUS SOLOSTAR/SEMGLEE) 100 unit/mL (3 mL) injection pen Inject into the skin at bedtime. 40 units at bedtime 06/11/2021 added in this encounter Care Teams Digital Media Intern Relationship Specialty Start Date End Date Carrington Calderon MD [address] [facility] [address] [place] [phone] PCP - General Internal Medicine - Primary Care 12/09/20 documented as of this encounter
--- OUTSIDE RECORDS SUMMARY | 2024-05-31 00:39 | XMS_ITS | Encounter Summary ---
Author Organization [facility] Address [address] [place] [address] Care Team Providers Care Contact Center Assistant Name Role Phone Unavailable Primary Care [...]
--- OUTSIDE RECORDS SUMMARY | 2024-05-31 00:40 | XMS_ITS | Encounter Summary ---
Author Organization [facility] Address [address] [place] [address] Care Team Providers Care Artistic Associate Name Role Phone Unavailable Primary Care [...]
--- OUTSIDE RECORDS SUMMARY | 2024-05-31 00:40 | XMS_ITS | Encounter Summary ---
Author Organization [facility] Address [address] [place] [address] Care Team Providers Care Cotton Factor Name Role Phone Unavailable Primary Care Provider Unavailabl e Reason for Referral * PT/OT/ST (Routine) - Closed Specialty Diagnoses / Procedures Referred By Contac t Referred To Contact Diagnoses Acute right-sided low back pain with sciatica, sciatica laterality unspecified Moshe Ferrer MD Phone: tel: fax: Gay Hyman, PT [id number] [place] [address] Phone: tel: fax: Referral ID Status Reason Start Date Expiration Date V isits Requested Visits Authorized [id number] Closed Specialty Services Required 10/22/2020 1 1 Question Answer Reason for Request: acute on chronic low back pain, history of emotional trauma Reason for Visit * Reason Comments Back Pain right lower back kuldeep n radiating down right lower limb. Encounter Details Date Type Department Care Team (Late st Contact Info) Description 10/22/2020 10:00 EDT Office Visit [facility] Adult Primary Care - [place] [address] [place], [place] [id number] Linnea Patel MD [address] [place] [phone] Acute right-sided low back pain with sciatica, [...] Date lidocaine 5 % (LIDODERM) 5 % patch Place 1 Patch onto the skin daily. Patch(es) may remain in place for up to 12 hours in any 24-hour period. 10 Patch 10/22/2020 1 methocarbamoL (ROBAXIN) 500 mg tablet Take 2 Tabs by mouth 4 times daily for 10 days. 80 Tab 10/22/2020 1 LORazepam (ATIVAN) 0.5 mg tablet Take 1 Tab by mouth 3 times daily as needed for up to 14 days for Anxiety. Daily Max: 1.5 mg 30 Tab 10/22/2020 1 gabapentin (NEURONTIN) 100 mg capsule Take 1 Cap by mouth 2 times daily before breakfast and lunch. 60 Cap 5 10/22/2020 1 documented in this encounter Progress Notes * Linnea Patel MD - 10/22/2020 1000 EDT [facility] Patient Name: [...] in the resident's note. Moshe Ferrer MD FACP documentum consultant documented in this encounter Plan of Treatment [...]
--- OUTSIDE RECORDS SUMMARY | 2024-05-31 00:40 | XMS_ITS | Encounter Summary ---
Author Organization [facility] Address [address] [place] [address] Care Team Providers Care Under Sheriff Name Role Phone Unavailable Primary Care Provider [...] 11:05 EDT - 10/01/2020 15:04 EDT Emergency [facility] Emergency Department - [address] [place] [address], [place] [id number] Aubrey Javed, MARY [address] [place], [place] [id number] Non-intractable vomiting with nausea, unspecified vomiting type [...] hearing? Answer Date of Assessment Author No 08/09/2020 0:58 Niesha Yen RN * Are you blind or do you have serious difficulty seeing, even when wearing glasses? Answer Date of Assessment Author No 08/09/2020 0:58 Niesha Yen RN * Do you have serious difficulty walking or climbing stairs? (5 years old or older) Answer Date of Assessment Author No 08/09/2020 0:58 Niesha Yen RN * Do you have difficulty dressing or bathing? (5 years old or older) Answer Date of Assessment Author No 08/09/2020 0:58 Niesha Yen RN * Because of a physical, mental, or emotional condition, do you have difficulty doing errands alone such as visiting a doctor's office or shopping? (15 years old or older) Answer Date of Assessment Author No 08/09/2020 0:58 Niesha Yen RN documented as of this encounter Mental Status * Because of a physical, mental, or emotional condition, do you have serious difficulty concentrating, remembering, or making decisions? (5 years old or older) Answer Entry Date Author No 08/09/2020 0:58 Niesha Yen RN documented in this encounter Discharge Instructions [...] Each 10/04/2019 2 blood glucose test strips One Touch Verio IQ or other brand compatible with meter and covered by patient's insurance. Testing QID. 100 Each 5 08/11/2020 4 capsaicin (ZOSTRIX) 0.025 % topical cream Apply up to 2 times daily over abdomen, shoulders and arms as needed for abdominal pain and nausea 1 Tube 1 10/01/2020 1 flash glucose scanning reader (FREESTYLE FLORA 2 READER) misc 1 Device by mis (non-drug; combo route) route continuous. 1 Each 10/01/2020 2 flash glucose sensor (FREESTYLE FLORA 2 SENSOR) kit 1 Device by mis (non-drug; combo route) route continuous. 6 Kit 3 10/01/2020 2 gabapentin (NEURONTIN) 100 mg capsule Take 100 mg by mouth 2 times daily before breakfast and lunch. 1 gabapentin (NEURONTIN) 300 mg capsule Take 1 Cap by mouth 3 times daily. 90 Cap 2 08/01/2020 1 haloperidoL (HALDOL) 5 mg tablet Take 1 Tab by mouth daily as needed for Nausea. 10 Tab 10/01/2020 1 insulin aspart U-100 (NOVOLOG FLEXPEN) 100 unit/mL (3 mL) injectable penIndications:t ype 2 diabetes mellitus,as needed with meals. Inject 9 Units into the skin 3 times daily with meals. 30 mL 2 03/21/2020 2 insulin glargine (LANTUS SOLOSTAR) 100 unit/mL (3 mL) injection pen Inject 30 Units into the skin at bedtime for 90 days. 27 mL 3 12/04/2019 2 insulin pen needles 31G x 10/19Indications :Type 2 diabetes mellitus with hyperglycemia, with long-term current use of insulin ([facility]) Use 1 pen needle as directed 4 times daily. 400 Each 2 09/02/2020 3 lancets One Touch Delica or other brand compatible with lancing device and covered by patient's insurance. 100 Each 5 10/01/2020 3 LORazepam (ATIVAN) 0.5 mg tablet Take 1 Tab by mouth 3 times daily as needed for up to 14 days for Anxiety. Daily Max: 1.5 mg 30 Tab 10/01/2020 1 nicotine (NICODERM CQ) 7 mg/24 hr patch Apply one patch only daily on skin without hair. Apply to a different skin site at the same time each day. 14 Patch 06/13/2020 1 oxyCODONE (ROXICODONE) 5 mg immediate release tablet Take 1 Tab by mouth every 4 hours as needed for Pain. Daily Max: 30 mg 5 Tab 08/20/2020 1 SITagliptin (JANUVIA) 50 mg tablet Take 1 Tab by mouth daily. 90 Tab 3 09/02/2020 2 TENS unit and electrodes combo pack 1 Each by misc (non-drug; combo route) route daily. 1 Each 08/01/2020 2 documented as of this encounter Ordered Prescriptions Prescription Sig Dispense Quantity Refills Last Filled Start Date End Date capsaicin (ZOSTRIX) 0.025 % topical cream Apply up to 2 times daily over abdomen, shoulders and arms as needed for abdominal pain and nausea 1 Tube 1 10/01/2020 1 haloperidoL (HALDOL) 5 mg tablet Take 1 Tab by mouth daily as needed for Nausea. 10 Tab 10/01/2020 1 documented in this encounter Discharge Disposition Disposition Code Departure Means Destination Home or Self Jail documented in this encounter ED Notes * Aubrey Javed PA-C - 10/01/2020 1450 EDT DOS: 10/01/2020 Chief Complaint Patient presents [...] hot showers, but is too weak to rattling machine tender the shower for very long today. Patient [...] gotten relief with outpatient oral Haldol from [facility]. patient is currently not vomiting and tolerating p.o. intake. Although she is nervous about going home and having to come back, she agrees to try oral Haldol at home. She will continue to work on eliminating THC. We discussed the fact that this would probably have to be for several months before we would expect her symptoms to resolve if this is CHS. She will return for uncontrolled symptoms. Final [...] the Emergency Department: Stable PCP: Tonja Alejandro [facility] Number of Diagnoses or Management Options Amount and/or Complexity of Data Reviewed Clinical lab tests: ordered Tests in the medicine section of CPT??: ordered Alessandro Delgadillo 10/03/2020 8:15 No flowsheet data found. * Digeo Casas RN - 10/01/2020 9403 EDT PO fluids provided for PO challenge. [...] 14.04(H) 4.00 - 12.40 K/cmm [facility] RBC 4.42 3.86 - 5.04 M/cmm 10/01/2020 12:28 [facility] Hemoglobin 14.1 11.6 - 15.2 gm/dL 10/01/2020 12:28 [facility] HCT 38.2 34.9 - 44.4 % 10/01/2020 12:28 [facility] MCV 86 81 - 98 fl 10/01/2020 12:28 [facility] MCH 31.9 26.7 - 33.3 pg 10/01/2020 12:28 [facility] MCHC 36.9(H) 32.1 - 35.9 gm/dL 10/01/2020 12:28 [facility] RDW-CV 12.4 <14.7 % 10/01/2020 12:28 [facility] RDW-SD 39.3 <50.4 fl 10/01/2020 12:28 [facility] PLT 380(H) 141 - 377 K/cmm 10/01/2020 12:28 [facility] MPV 9.6 9.5 - 12.7 fl 10/01/2020 12:28 [facility] % Neutrophils 71.0 % 10/01/2020 12:28 [facility] % Lymphocytes 21.1 % 10/01/2020 12:28 [facility] % Monocytes 6.9 % 10/01/2020 12:28 [facility] % Eosinophils 0.2 % 10/01/2020 12:28 [facility] % Basophils 0.4 % 10/01/2020 12:28 [facility] % Immature Grans 0.4 % 10/02/19 12:28 [facility] Absolute Neutrophils 9.97(H) 2.20 - 8.85 K/cmm 10/01/2020 12:28 [facility] Absolute Lymphocytes 2.96 1.09 - 3.30 K/cmm 10/01/2020 12:28 [facility] Absolute Monocytes 0.97(H) 0.10 - 0.80 K/cmm 10/01/2020 12:28 [facility] Absolute Eosinophils 0.03 0.03 - 0.61 K/cmm 10/01/2020 12:28 [facility] ABS Basophils 0.06 0.01 - 0.11 K/cmm 10/01/2020 12:28 [facility] Absolute Immature Grans 0.05 0.00 - 0.06 K/cmm 10/01/2020 12:28 [facility] Type of Differential: Auto 10/01/2020 12:28 [facility] Blood VENOUS BLOOD / Unknown Venipuncture / Unknown 10/01/2020 11:51 EDT 10/01/2020 11:57 EDT Aubrey Javed PA-C PACKAGES & DNA PROBE ORDERABL ES Final Result Performing Organization Address [facility]/ZIP Co de Phone Number [facility] [address] [place] [address] * (ABNORMAL) BASIC METABOLIC PANEL (BMP) (10/01/2020 11:51 EDT) Sodium 138 136 - 145 mEq/L 10/01/2020 12:23 EDT [facility] Potassium 3.5 3.5 - 5.0 mEq/L 10/01/2020 12:23 [facility] Chloride 98 96 - 110 mEq/L 10/01/2020 12:23 [facility] CO2 Total 27 22 - 32 mEq/L 10/01/2020 12:23 [facility] Glucose 218(H) 70 - 100 mg/dL 10/01/2020 12:23 [facility] Calcium 9.4 8.5 - 10.5 mg/dL 10/01/2020 12:23 [facility] Calculated Calcium 9.3 8.5 - 10.5 mg/dL 10/01/2020 12:23 [facility] BUN 13 10 - 26 mg/dL 10/01/2020 12:23 [facility] Creatinine 0.52 0.52 - 1.04 mg/dL 10/01/2020 12:23 [facility] eGFR 124 >60 mL/min/1.7 3m2 10/01/2020 12:23 [facility] Comment:eGFR calculated gil curtis CKD-EPI equation for non- Americans. Multiply eGFR by 1.16 for patients. Blood VENOUS BLOOD / Unknown Venipuncture / Unknown 10/01/2020 11:51 EDT 10/01/2020 11:57 EDT Aubrey Javed PA-C CHEMISTRY & BLOOD GAS ORDERAB LES Final Result Performing Organization Address City/[facility]/ZIP Co de Phone Number [facility] [address] [place] [address] * (ABNORMAL) POCT GLUCOSE, INTERFACED (10/01/2020 11:14 EDT) Glucose, POC 167(H) 70 - 100 mg/dL 10/01/2020 11:15 EDT [facility] juice mixer ID [id number] 10/01/2020 11:15 EDT [facility] HN LAB POC COMMENT (GLUCOSE) Test Performed by Nursing Services 10/01/2020 11:15 EDT [facility] Blood CAPILLARY BLOOD / Unknown 10/01/2020 11:14 EDT 10/01/2020 11:15 EDT Aubrey Javed PA-C POINT OF CARE TEST ORDERABLES Final Result [facility] [address] [place] [address] documented in this encounter Visit Diagnoses Diagnosis [...]
--- OUTSIDE RECORDS SUMMARY | 2024-05-31 00:40 | XMS_ITS | Encounter Summary ---
Author Organization [facility] Address [address] [place] [address] Care Team Providers Care Full Time Babysitter Name Role Phone Unavailable Primary Care Provider Unavailabl e Encounter Details Date Type Department Care Team (Late st Contact Info) Description 10/10/2020 Orders Only [facility] Adult Primary Care - [address] [phone] Tonja Alejandro PA-C [address] [place] [address] [place] [phone] Social History Tobacco Use Types Packs/Day [...]
--- OUTSIDE RECORDS SUMMARY | 2024-05-31 00:40 | XMS_ITS | Encounter Summary ---
Author Organization [facility] Address [address] [place] [address] Care Team Providers Care Caustic Plant Worker Name Role Phone Unavailable Primary Care [...]
--- OUTSIDE RECORDS SUMMARY | 2024-05-31 00:40 | XMS_ITS | Encounter Summary ---
Author Organization [facility] Address [address] [place] [address] Care Team Providers Care Analytics Leader Name Role Phone Unavailable Primary Care Provider Unavailabl e Reason for Visit * Reason Onset Date Comments Prior Auth, Medication 10/23/2020 Encounter Details Date Type Department Care Team (Late st Contact Info) Description 10/23/2020 Telephone [facility] Adult Primary Care [address] [phone] Tonja Alejandro PA-C [address] [place] [address] [place] [phone] Prior Auth, Medication Social History Tobacco [...] Auth needed for Lidocaine 5% Patches Mejia: [id number] PA has been completed via [employer]. Awaiting decision Medication does not require a PA. Pharmacy notified documented in this encounter Plan of Treatment Not on file documented as of this encounter Visit Diagnoses Not on filedocumented in this encounter
--- OUTSIDE RECORDS SUMMARY | 2024-05-31 00:40 | XMS_ITS | Encounter Summary ---
Author Organization [facility] Address [address] [place] [address] Care Team Providers Care Automatic Lump Making Machine Tender Name Role Phone Unavailable Primary Care Provider Unavailabl e Reason for Visit * Reason Comments Back Pain Encounter Details Date Type Department Care Team (Late st Contact Info) Description 11/04/2020 14:15 EDT Office Visit [facility] Adult Primary Care - [address] [address] Tonja Alejandro PA-C [address] [place] [address] [place] [phone] Chronic midline low back pain with [...] the lumbarspine. We will get done at [place] [facility] -Continue physical therapy Tonja Alejandro PA-C [facility] Adult Primary [facility]-[place] 11/04/2020 14:45 I spent a total of [...]
--- OUTSIDE RECORDS SUMMARY | 2024-05-31 00:40 | XMS_ITS | Encounter Summary ---
Author Organization [facility] Address [address] [place] [address] Care Team Providers Care Shipping Assistant Name Role Phone Unavailable Primary Care Provider Unavailabl e Reason for Visit * Reason Onset Date Comments No Show 11/24/2020 Encounter Details Date Type Department Care Team (Late st Contact Info) Description 11/24/2020 Telephone [facility] Adult Primary Care - [address] [phone] Tonja Alejandro PA-C [address] [place] [address] [place] [phone] No Show Social History Tobacco Use [...]
--- OUTSIDE RECORDS SUMMARY | 2024-05-31 00:40 | XMS_ITS | Encounter Summary ---
Author Organization [facility] Address [address] [place] [address] Care Team Providers Care Intern Product Marketing Manager Name Role Phone Unavailable Primary Care Provider Unavailabl e Reason for Visit * Reason Onset Date Comments Medication Questions 10/09/2020 Encounter Details Date Type Department Care Team (Late st Contact Info) Description 10/09/2020 Telephone [facility] Adult Primary Care - [address] [phone] Tonja Alejandro PA-C [address] [place] [address] [place] [phone] Medication Questions Social History Tobacco Use [...] Refills Last Filled Start Date End Date mirtazapine (REMERON) 15 mg tablet Take 1 Tab by mouth at bedtime. 30 Tab 2 10/10/2020 03/27/2021 documented in this encounter Miscellaneous Notes * Telephone Encounter - Tonja Alejandro PA-C - 10/21/2020 1454 EDT See previous notes. Spoke with patient [...]
--- OUTSIDE RECORDS SUMMARY | 2024-05-31 00:40 | XMS_ITS | Encounter Summary ---
Author Organization [facility] Address [address] [place] [address] Care Team Providers Care Cytogenetic Technician Name Role Phone Carrington Calderon MD Primary Care Provi anders Reason for Visit * Reason Onset Date Comments Medications Refill 12/04/2020 Medications Refill 12/05/2020 Encounter Details Date Type Department Care Team (Late st Contact Info) Description 12/04/2020 Refill [facility] Adult Primary Care - [address] [phone] Tonja Alejandro PA-C [address] [place] [phone] Medications Refill; Medications Refill Social History [...] Filled Start Date End Date gabapentin (NEURONTIN) 100 mg capsule Take 1 capsule by mouth 2 times daily before breakfast and lunch. 180 capsule 1 12/04/2020 gabapentin (NEURONTIN) 300 mg capsule Take 1 capsule by mouth daily. Take 1 cap in the evening. (In addition to 100mg gabapentin twice daily) 90 capsule 2 12/04/2020 documented in this encounter Miscellaneous Notes * Telephone Encounter - Eryn Gutierrez RN - 12/04/2020 1650 EDT Spoke with [...] documented as of this encounter Care Teams Cytogenetic Technician Relationship Specialty Start Date End Date Carrintgon Calderon MD 1 [facility] [address] [place] [address] PCP - General Internal Medicine - Primary Care 12/09/20 documented as of this encounter
--- OUTSIDE RECORDS SUMMARY | 2024-05-31 00:40 | XMS_ITS | Encounter Summary ---
Author Organization [facility] Address [address] [place] [address] Care Team Providers Care Electrician Master Name Role Phone Unavailable Primary Care Provider Unavailabl e Reason for Visit * Reason Onset Date Comments Medication Problem 10/06/2020 Encounter Details Date Type Department Care Team (Late st Contact Info) Description 10/06/2020 Telephone [facility] Adult Primary Care - [address] [phone] Tonja Alejandro PA-C [address] [place] [address] [place] [phone] Medication Problem Social History Tobacco Use [...] Refills Last Filled Start Date End Date lancets Brand: Freestyle, use as directed if Freestyle Vignesh censor isnt working 100 Each 3 10/06/2020 3 blood glucose test strips Brand: FreeStyle Precision Cristo, use as directed if Freestyle Vignesh censor isnt working 100 Each 3 10/06/2020 4 documented in this encounter Miscellaneous Notes * Telephone Encounter - Tonja Alejandro PA-C - 10/06/2020 1611 EDT Orders have been signed * Telephone Encounter - Jesi Lua, RN - 10/06/2020 1540 EDT Spoke with [...] - 10/06/2020 1453 EDT Incoming fax from [facility] 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
--- OUTSIDE RECORDS SUMMARY | 2024-05-31 00:40 | XMS_ITS | Encounter Summary ---
Author Organization [facility] Address [address] [place] [address] Care Team Providers Care Staging Technician Name Role Phone Unavailable Primary Care Provider Unavailabl e Reason for Visit * Reason Onset Date Comments Medication Questions 10/22/2020 Encounter Details Date Type Department Care Team (Late st Contact Info) Description 10/22/2020 Telephone [facility] Adult Primary Care - [address] [phone] Tonja Alejandro PA-C [address] [place] [address] [place] [phone] Medication Questions Social History Tobacco Use [...] Date gabapentin (NEURONTIN) 300 mg capsule Take 1 Cap by mouth daily. Take 1 cap in the evening. (In addition to 100mg gabapentin twice daily) 90 Cap 1 10/22/2020 documented in this encounter Miscellaneous Notes * Telephone Encounter - Kamini Whittaker - 10/22/2020 1452 EDT Call to pharmacy to clarify the [...] Quezada - 10/22/2020 1151 EDT Pharmacist with [facility] called because they received two prescriptions of [...]
--- OUTSIDE RECORDS SUMMARY | 2024-05-31 00:40 | XMS_ITS | Encounter Summary ---
Author Organization [facility] Address [address] [place] [address] Care Team Providers Care Pneumatic Tube Operator Name Role Phone Unavailable Primary Care Provider Unavailabl e Reason for Visit * Reason Onset Date Comments Medications Refill 10/01/2020 Encounter Details Date Type Department Care Team (Late st Contact Info) Description 10/01/2020 Refill [facility] Adult Primary Care - [address] [address] Tonja Alejandro PA-C [address] [place] [address] [place] [phone] Medications Refill Social History Tobacco Use [...] Niesha Yen RN documented in this encounter Miscellaneous Notes * Telephone Encounter - Elver Kamini - 10/02/2020 1221 EDT Medication(s) Requested: metoclopramide HCI Preferred Pharmacy: [id number] Is patient out of medication? Unknown Last Refill Date: 08/11/2020 Last Visit Date with Ordering Provider: 09/15/2020 Next Non-Acute Visit Date Scheduled with Care Team: No. Kamini Raya 10/02/2020 15:47 documented in this encounter Plan of Treatment Not on file documented as of this encounter Visit Diagnoses Not on filedocumented in this encounter
--- OUTSIDE RECORDS SUMMARY | 2024-05-31 00:40 | XMS_ITS | Encounter Summary ---
Author Organization [facility] Address [address] [place] [id number] Care Team Providers Care Ribbon Hanking Machine Operator Name Role Phone Unavailable Primary Care Provider Unavailabl e Reason for Visit * Reason Comments Dehydration needs rehydration an d nausea meds per PCP Encounter Details Date Type Department Care Team (Latest Contact Info) Description 11/20/2020 9:58 EDT - 11/20/2020 12:29 EDT Hospital Encounter [facility] Urgent Care - [address] [phone] Fran Blanco MD [address] [place] [phone] Nausea and vomiting, intractability of vomiting [...] River Francisco RN documented in this encounter Discharge Instructions * Discharge Instructions* Fran Blanco MD - 11/20/2020 12:26 EDT Reglan as needed and follow up with your PCP if having difficulty staying hydrated or worsening. * Attachments The following attachments cannot be sent through Care Everywhere. * Nausea and Vomiting (Taiwanese) documented in this encounter Medications at Time [...] 3 10/01/2020 2 gabapentin (NEURONTIN) 300 mg capsule Take 1 Cap by mouth daily. Take 1 cap in the evening. (In addition to 100mg gabapentin twice daily) 90 Cap 1 10/22/2020 1 insulin aspart U-100 (NOVOLOG FLEXPEN) 100 [...] hyperglycemia, with long-term current use of insulin ([facility]) Use 1 pen needle as directed [...] Max: 1.5 mg 30 Tab 10/22/2020 1 metoclopramide HCl (REGLAN) 10 mg tablet [...] Ketones, UA 3+ (AA) Negative mg/dL Specific [place], Urine 1.025 1.001 - 1.035 Blood, UA [...] or constipation. She's been in her usual stare of health prior to this. No URI [...] Device by misc (non-drug; comboroute) route continuous. 1 Each 0 [...] diabetes mellitus with left diabetic foot ulcer ([facility]) 05/03/2020 ??? Osteomyelitis of great toe of left foot ([facility]) 03/12/2020 ??? Diabetic foot ulcer associated with diabetes mellitus due to underlying condition ([facility]) 03/07/2020 ??? Diabetic foot infection ([facility]) 03/06/2020 ??? Diabetic foot ulcer ([facility]) 03/06/2020 ??? Cellulitis of great toe of left foot 11/26/2019 ??? Chronic midline low back pain without sciatica 11/26/2019 ??? Chronic left ear pain 09/04/2015 ??? Gastroparesis 08/10/2020 SUSPECTED - still needs to be eval with gastric emptying study (as of 08/10/20) ??? Admission for sterilization 06/27/2020 Added automatically from request for surgery [id number] ??? Osteomyelitis of toe of left foot ([facility]) 06/05/2020 Added automatically from request for surgery [id number] ??? Type 2 diabetes mellitus with diabetic polyneuropathy, with long-term current use of insulin ([facility]) 06/05/2020 Added automatically from request for surgery [id number] ??? Family history of rheumatoid arthritis 09/04/2015 Mother, pt with chronic back pain. Told arthritis in spine in teen yrs. ??? Type 2 diabetes mellitus ([facility]) 09/03/2015 Dx approx age 25. Controlled with lifestyle behaviors, wt loss. Had taken lantus in past 80u, Followed by endocrine in [facility]. Stopped few yrs ago until this past month. ??? Anxiety and depression 05/12/2010 Onset teen yrs. Treated with citalopram in approx 2013 - had SI, treated at [place]. Marijuana prn to help with stress/anxiety sx. [...] has a referral for therapy. ??? Diabetes ([facility]) A1c 10.3 on 11/28/2019 - poorly controlled ??? Diabetes mellitus, type 2 ([facility]) pt check blood sugars at home- [...] 08/19. Followed by Dr. López[facility] in [place] Social History Tobacco Use ??? Smoking status: [...] of further medications. Upon departure from [facility], the patient's pain was 0 on a zero to ten scale. Any further pain treatment will be at the discretion of the provider following up with the patient based on their clinical assessment . Condition at departure from the [facility] : Stable [facility] 11/20/2020 17:40 * Harini Castaneda RN - [...] has a referral for therapy. ??? Diabetes ([facility]) A1c 10.3 on 11/28/2019 - poorly controlled ??? Diabetes mellitus, type 2 ([facility]) pt check blood sugars at home- [...] vomiting occasionally ??? Obesity, unspecified ??? Osteomyelitis ([facility]) of left great toe-s/p amputation ??? [...] laboratory if clinically indicated. 11/21/2020 12:11 EDT [facility] Urine URINE SPECIMEN COLLECTION, CLEAN CATCH / Unknown Urine Collect / Unknown 11/20/2020 11:48 EDT 11/20/2020 12:45 EDT us Fran Blanco MD MICROBIOLOGY - GENERAL O RDERABLES Final Result [facility] [address] [place] [id number] * (ABNORMAL) URINE SEDIMENT (MICRO) WITH REFLEX TO CULTURE (11/20/2020 11:48 EDT) Urine RBC Count, Auto 3 - 10(A) 0 - 2 Cells/HPF 11/20/2020 12:45 EDT [facility] Urine WBC Count, Auto 11 - 50(A) 0 - 3 Cells/HPF 11/20/2020 12:45 EDT [facility] Urine Squamous Count, Auto Many(A) None Seen Cells/HPF 11/20/2020 12:45 EDT [facility] Urine Hyaline Cast Count, Auto <=10 <=10 Casts/LPF 11/20/2020 12:45 EDT [facility] Urine Bacteria Count, Auto Moderate(A ) None Seen Bacteria/H PF 11/20/2020 12:45 EDT [facility] Urine URINE SPECIMEN COLLECTION, CLEAN CATCH / Unknown Urine Collect / Unknown 11/20/2020 11:48 EDT 11/20/2020 12:25 EDT Narrative [facility] - 11/20/2020 12:45 EDT A Urine Culture test has been reflexively ordered based on result criteria from the Urine Sediment Analysis. Urine Sediment Analysis results are unreliable on urines that are unrefrigerated for >2 hrs or refrigerated >8 hrs. Fran Blanco MD URINALYSIS ORDERABLES Fi nal Result Performing Organization Address [facility] Co de Phone Number [facility] [address] [place] [address] * POCT CSN BARCODE URINE DIPSTICK (11/20/2020 11:47 EDT) Urine URINE SPECIMEN COLLECTION, CLEAN CATCH / Unknown Urine Collect / Unknown 11/20/2020 11:47 EDT 11/20/2020 11:47 EDT Fran Blanco MD LAB INFO SERVICE AND SUP PORT & PHONE RESULT Final Result Performing Organization Address [facility] Co de Phone Number [facility] [address] [place] [phone] * (ABNORMAL) POCT URINE DIPSTICK, CLINITEK (11/20/2020 11:44 EDT) Color, UA Yellow Yellow 11/20/2020 11:46 EDT [facility] Clarity, UA Cloudy(A) Clear 11/20/2020 11:46 EDT [facility] Glucose, UA 2+(A) Negative mg/dL 11/20/2020 11:46 EDT [facility] Bilirubin, UA Negative Negative 11/20/2020 11:46 EDT [facility] Ketones, UA 3+(AA) Negative mg/dL 11/20/2020 11:46 [facility] Specific [place], Urine 1.025 1.001 - 1.035 11/20/2020 11:46 [facility] Blood, UA Trace(A) Negative 11/20/2020 11:46 [facility] pH, UA 7.0 <=8 11/20/2020 11:46 [facility] Protein, UA 1+(A) Negative mg/dL 11/20/2020 11:46 [facility] Urobilinogen, UA 0.2 0.2 - 1.0 EU/dL 11/20/2020 11:46 [facility] Nitrite, UA Negative Negative 11/20/2020 11:46 [facility] Leuk Esterase Negative Negative 11/20/2020 11:46 [facility] HN LAB COMMENT (CLINITEK, UR) Test performed at Urgent Care 11/20/2020 11:46 [facility] Urine URINE SPECIMEN COLLECTION, CLEAN CATCH / Unknown 11/20/2020 11:44 EDT 11/20/2020 11:46 EDT us Fran Blanco MD POINT OF CARE TEST ORDER HAILEY Final Result [facility] [address] [place] [address] * (ABNORMAL) COMPLETE BLOOD COUNT AND DIFFERENTIAL (11/20/2020 10:35 EDT) WBC 14.78(H) 4.00 - 12.40 K/cmm 11/20/2020 11:51 [facility] RBC 4.65 3.86 - 5.04 M/cmm 11/20/2020 11:51 [facility] Hemoglobin 14.1 11.6 - 15.2 gm/dL 11/20/2020 11:51 [facility] HCT 40.7 34.9 - 44.4 % 11/20/2020 11:51 [facility] MCV 88 81 - 98 fl 11/20/2020 11:51 [facility] MCH 30.3 26.7 - 33.3 pg 11/20/2020 11:51 [facility] MCHC 34.6 32.1 - 35.9 gm/dL 11/20/2020 11:51 [facility] RDW-CV 12.5 <14.7 % 11/20/2020 11:51 [facility] RDW-SD 39.7 <50.4 fl 11/20/2020 11:51 [facility] PLT 385(H) 141 - 377 K/cmm 11/20/2020 11:51 [facility] MPV 10.2 9.5 - 12.7 fl 11/20/2020 11:51 [facility] % Neutrophils 84.6 % 11/20/2020 11:51 [facility] % Lymphocytes 10.4 % 11/20/2020 11:51 [facility] % Monocytes 4.3 % 11/20/2020 11:51 [facility] % Eosinophils 0.0 % 11/20/2020 11:51 [facility] % Basophils 0.2 % 11/20/2020 11:51 [facility] % Immature Grans 0.5 % 11/21/19 11:51 [facility] Absolute Neutrophils 12.51(H) 2.20 - 8.85 K/cmm 11/20/2020 11:51 [facility] Absolute Lymphocytes 1.53 1.09 - 3.30 K/cmm 11/20/2020 11:51 [facility] Absolute Monocytes 0.64 0.10 - 0.80 K/cmm 11/20/2020 11:51 [facility] Absolute Eosinophils 0.00(L) 0.03 - 0.61 K/cmm 11/20/2020 11:51 [facility] ABS Basophils 0.03 0.01 - 0.11 K/cmm 11/20/2020 11:51 [facility] Absolute Immature Grans 0.07(H) 0.00 - 0.06 K/cmm 11/20/2020 11:51 [facility] Type of Differential: Auto 11/20/2020 11:51 [facility] Blood VENOUS BLOOD / Unknown Venipuncture / Unknown 11/20/2020 10:35 EDT 11/20/2020 11:37 EDT us Fran Blanco MD PACKAGES & DNA PROBE ORD ERABLES Final Result [facility] [address] [place] [address] * (ABNORMAL) COMPREHENSIVE METABOLIC PANEL (CMP) (11/20/2020 10:35 EDT) Sodium 143 136 - 145 mEq/L 11/20/2020 12:01 [facility] Potassium 4.0 3.5 - 5.0 mEq/L 11/20/2020 12:01 [facility] Chloride 97 96 - 110 mEq/L 11/20/2020 12:01 [facility] CO2 Total 28 22 - 32 mEq/L 11/20/2020 12:01 [facility] Glucose 307(H) 70 - 100 mg/dL 11/20/2020 12:01 [facility] BUN 12 10 - 26 mg/dL 11/20/2020 12:01 [facility] Creatinine 0.49(L) 0.52 - 1.04 mg/dL 11/20/2020 12:01 [facility] eGFR 127 >60 mL/min/1.7 3m2 11/20/2020 12:01 [facility] Comment:eGFR calculated gil curtis CKD-EPI equation for non- Americans. Multiply eGFR by 1.16 for patients. Total Protein 7.6 6.3 - 8.2 g/dL 11/20/2020 12:01 [facility] Albumin 4.6 3.4 - 4.9 g/dL 11/20/2020 12:01 EDT [facility] Alkaline Phosphatase 113 38 - 126 U/L 11/20/2020 12:01 EDT [facility] AST 23 15 - 46 U/L 11/20/2020 12:01 EDT [facility] ALT 21 <35 U/L 11/20/2020 12:01 T [facility] Bilirubin, Total <0.5 <1.4 mg/dL 11/21/19 12:01 T [facility] Calcium 10.3 8.5 - 10.5 mg/dL 11/20/2020 12:01 [facility] Calculated Calcium 9.8 8.5 - 10.5 mg/dL 11/20/2020 12:01 [facility] Blood VENOUS BLOOD / Unknown Venipuncture / Unknown 11/20/2020 10:35 EDT 11/20/2020 11:37 EDT us Fran Blanco MD CHEMISTRY & BLOOD GAS OR DERABLES Final Result [facility] [address] [place] [address] documented in this encounter Visit Diagnoses Diagnosis [...]
--- OUTSIDE RECORDS SUMMARY | 2024-05-31 00:40 | XMS_ITS | Encounter Summary ---
Author Organization [facility] Address [address] [place] [address] Care Team Providers Care Legal Services Professional Name Role Phone Unavailable Primary Care Provider Unavailabl e Reason for Visit * Reason Onset Date Comments Coordination Of Care 10/01/2020 Patient arturo ding to ED Encounter Details Date Type Department Care Team (Late st Contact Info) Description 10/01/2020 Telephone [facility] Adult Primary Care - [address] [phone] Tonja Alejandro PA-C [address] [place] [address] [place] [phone] Coordination Of Care (Patient heading to [...] Niesha Yen RN documented in this encounter Ordered Prescriptions Prescription Sig Dispense Quantity Refills Last Filled Start Date End Date lancets One Touch Delica or other brand compatible with lancing device and covered by patient's insurance. 100 Each 5 10/01/2020 3 flash glucose scanning reader (FREESTYLE FLORA 2 READER) misc 1 Device by mis (non-drug; combo route) route continuous. 1 Each 10/01/2020 2 flash glucose sensor (FREESTYLE FLORA 2 SENSOR) kit 1 Device by mis (non-drug; combo route) route continuous. 6 Kit 3 10/01/2020 2 LORazepam (ATIVAN) 0.5 mg tablet Take 1 Tab by mouth 3 times daily as needed for up to 14 days for Anxiety. Daily Max: 1.5 mg 30 Tab 10/01/2020 1 documented in this encounter Miscellaneous Notes * Telephone Encounter - Tonja Alejandro PA-C - 10/01/2020 1249 EDT Spoke with patients on the phone. He tells me that Stella has not been doing well. She did fly out to [place] to visit her family and came back. [...]
--- OUTSIDE RECORDS SUMMARY | 2024-05-31 00:40 | XMS_ITS | Encounter Summary ---
Author Organization [facility] Address [address] [place] [address] Care Team Providers Care Receiving Worker Name Role Phone Unavailable Primary Care Provider Unavailabl e Reason for Visit * Reason Onset Date Comments Back Pain 10/21/2020 Encounter Details Date Type Department Care Team (Late st Contact Info) Description 10/21/2020 Telephone [facility] Adult Primary Care - [address] [phone] Caroline Skinner MD [address] [place] [phone] Back Pain Social History Tobacco [...] encounter Miscellaneous Notes * Telephone Encounter - Remedios Kamini - 10/22/2020 0913 EDT Spoke with patient. [...] Caroline Skinner MD - 10/21/2020 1910 EDT faculty i on call medical assistant message: arnold calling on her behalf. Severe [...]
--- OUTSIDE RECORDS SUMMARY | 2024-05-31 00:40 | XMS_ITS | Encounter Summary ---
Author Organization [facility] Address [address] [place] [address] Care Team Providers Care Director Women Name Role Phone Unavailable Primary Care Provider [...] Niesha Yen RN documented in this encounter Plan of Treatment Not on file documented as of this encounter Visit Diagnoses Not on filedocumented in this encounter
--- OUTSIDE RECORDS SUMMARY | 2024-05-31 00:40 | XMS_ITS | Encounter Summary ---
Author Organization [facility] Address [address] [place] [address] Care Team Providers Care Scaffold Setter Name Role Phone Unavailable Primary Care Provider Unavailabl e Reason for Visit * Reason Onset Date Comments Medications Refill 12/05/2020 Encounter Details Date Type Department Care Team (Late st Contact Info) Description 12/05/2020 Refill [facility] Adult Primary Care - [address] [phone] Tonja Alejandro PA-C [address] [place] [address] [place] [phone] Medications Refill Social History Tobacco Use [...] 0823 EDT Medication(s) Requested: Lorazepam Preferred Pharmacy: [facility] Is patient out of medication? Yes Last [...]
--- OUTSIDE RECORDS SUMMARY | 2024-05-31 00:40 | XMS_ITS | Encounter Summary ---
Author Organization [facility] Address [address] [place] [address] Care Team Providers Care Computer Aided Design Designer Name Role Phone Unavailable Primary Care Provider Unavailabl e Reason for Visit * Reason Onset Date Comments Back Pain 10/29/2020 Encounter Details Date Type Department Care Team (Late st Contact Info) Description 10/29/2020 Telephone [facility] Adult Primary Care - [address] [phone] Tonja Alejandro PA-C [facility] [address] [place] [phone] Back Pain Social History Tobacco [...]
--- OUTSIDE RECORDS SUMMARY | 2024-05-31 00:40 | XMS_ITS | Encounter Summary ---
Author Organization [facility] Address [address] [place] [address] Care Team Providers Care Media Services Specialist Name Role Phone Unavailable Primary Care Provider Unavailabl e Reason for Visit * Reason Onset Date Comments Emesis 11/20/2020 Encounter Details Date Type Department Care Team (Late st Contact Info) Description 11/20/2020 Telephone [facility] Adult Primary Care - [address] [phone] Tonja Alejandro PA-C [address] [place] [address] [place] [phone] Emesis Social History Tobacco Use Types [...] Miscellaneous Notes * Addendum Note - Roseline Whaley RN - 11/20/2020 1004 EDTAddended by: ROSELINE WHALEY [...] entry: from my routing message to Tonja MANDEL * Telephone Encounter - Tonja Alejandro PA-C [...] but can talk to triage nurse at [facility]. Called and spoke briefly with pt: She endorsed husbands assessment that she has gotten into a cycle of vomiting and starting to get dehydrated. Denies lightheaded, dizzy or other symptoms at this time. She knows she needs to stop the vomiting and replace her fluids. She agreed with going to /ED. She also said that the pharmacy did not receive previous reglan script. Resending to [facility]. The patient indicates understanding of these issues and agrees with the plan. No barriers noted. Called [facility] and gave report to charge nurse. * [...]
--- OUTSIDE RECORDS SUMMARY | 2024-05-31 00:40 | XMS_ITS | Encounter Summary ---
Author Organization [facility] Address [address] [place] [address] Care Team Providers Care Photo Producer Name Role Phone Unavailable Primary Care [...]
--- OUTSIDE RECORDS SUMMARY | 2024-05-31 00:40 | XMS_ITS | Encounter Summary ---
Author Organization [facility] Address [address] [place] [address] Care Team Providers Care Medical Office Assistant Name Role Phone Unavailable Primary Care Provider Unavailabl e Reason for Visit * Reason Onset Date Comments Medications Refill 10/07/2020 Encounter Details Date Type Department Care Team (Late st Contact Info) Description 10/07/2020 Telephone [facility] Endocrinology - [facility] [address] [place] [address] Sara Zafar NP [address] [facility] [address] [place] [phone] Medications Refill Social History Tobacco [...] Refills Last Filled Start Date End Date Miscellaneous Medication - See Admin Instructions Dispense one lancing device, generic brand as covered by insurance. 1 Each 10/07/2020 2 documented in this encounter Miscellaneous Notes [...]
--- OUTSIDE RECORDS SUMMARY | 2024-05-31 00:40 | XMS_ITS | Encounter Summary ---
Author Organization [facility] Address [address] [place] [address] Care Team Providers Care Pull Over Name Role Phone Unavailable Primary Care Provider [...]
--- OUTSIDE RECORDS SUMMARY | 2024-05-31 00:40 | XMS_ITS | Encounter Summary ---
Author Organization [facility] Address [address] [place] [address] Care Team Providers Care Audit Tech Name Role Phone Unavailable Primary Care [...] Expiration Date Visits Re quested Visits Authorized [id number] 1 1 Encounter Details Date Type Department Care Team (Late st Contact Info) Description 10/02/2020 18:44 EDT - 10/03/2020 12:37 EDT Hospital Encounter [facility] [address] [place] [address] Jonas Ambrosio MD 111 [facility], Level [address] [place] [address] Bonita See MD [address] [address] Intractable vomiting (Primary Dx); Intractable [...] Cavanaugh RN documented in this encounter Discharge Summaries * Carrington Padilla [...] post salpingectomy 08/24 who admitted to the [facility] with intractable nausea and vomiting. Patient [...] hyperglycemia, with long-term current use of insulin ([facility]) Use 1 pen needle as [...] Max: 1.5 mg 30 Tab 10/01/2020 1 metoclopramide HCl (REGLAN) 10 mg tablet Take 1 Tab by mouth 3 times daily before meals for 30 days. 90 Tab 10/03/2020 1 nicotine (NICODERM CQ) 7 mg/24 hr [...] Code Departure Means Destination Home-Health Care [facility] [place] [facility] documented in this encounter Progress Notes * Carlos Gabriel - 10/03/2020 1237 EDT Case Management Note: Patient was discharged home to self care prior to initial CM assessment. This public relations writer reviewed the patient's chart and discussed the patient's situation with the medical team. No case management dc needs were identified. Carlos Gabriel RN, [facility] [place] Pager # [phone] * Shirley Monte RN - 10/03/2020 0626 EDT Admission Note D - 35 y.o. [...] has a referral for therapy. ??? Diabetes ([facility]) A1c 10.3 on 11/28/2019 - poorly controlled ??? Diabetes mellitus, type 2 ([facility]) pt check blood sugars at home- [...] CBC: Recent Labs 09/30/20 0740 10/01/20 1151 10/02/201909 WBC 15.61* 14.04* 13.29* RBC 4.40 4.42 [...] -- LFT: Recent Labs 09/30/20 0845 10/01/20 115 TBIL -- 0.5 ALKPHOS -- 86 AST [...] IDDM2 c/b neuropathy - SSI - restart CARE TRANSITION COORDINATOR lantis 42 U and aspart 9 U TID once resumes eating (hold and use SSI until see trend considering glucose values overnight and recurrent N/V after arrival to floor) - held sitagliptin Counseled on monitoring left second digit Back pain - CARE TRANSITION COORDINATOR gabapentin Anxiety - CARE TRANSITION COORDINATOR lorazepam Diet: Consistent carb diet VTE Prophylaxis: lovenox Consults: none CODE STATUS: Full Prognosis/Disposition: likely discharge home tomorrow is she is medically stable. Admission Status Inpatient. Anticipated duration of hospitalization is greater than two midnights due to intractablevomiting. Keerthi Alejandro, MS 4 Acting Belt Press Operator 10/03/2020 1:45 Cortex; Pager #[phone] Attending Attestation Date of service: 10/03/20 I [...] ED Notes * Levi Jasso MA - 10/02/20201913 EDT Blood drawn via saline lock per protocol, blue, green and purple tube(s) sent to lab per order. * Beverly Marvin MD - 10/02/2020 1854 EDT This patient received an evaluation and medical screening exam for emergent medical conditions at the [facility] on 10/02/2020 This note was created and [...] as expected, or other new concerns arise. Cosigned by Jonas Ambrosio MD at 10/03/2020 11:24 EDT documented in this encounter Miscellaneous Notes * [...] to reach out on next appointment at [facility] for suggestions. She does hold for 10-15 [...] with her endo in November. Vicki CLARKE medical and scientific illustrator Nurse Clinician #[id number] documented in this encounter Plan of Treatment Not on file documented as of this encounter Procedures Procedure Name Priority Date/Time Associated Diagnosis Comments ECG REPORT - SCANNED 10/27/2020 16:38 EDT COMPLETE BLOOD COUNT Routine 10/03/2020 7:15 EDT BUN Routine 10/03/2020 7:15 EDT CREATININE Routine 10/03/2020 7:15 EDT ELECTROLYTES Routine 10/03/2020 7:15 EDT POCT GLUCOSE, INTERFACED Routine 10/03/2020 6:02 EDT ZZCOVID-19 TEST [facility] PCR Today 10/02/2020 22:44 EDT COVID-19 [...] (10/27/2020 16:38 EDT) 10/27/2020 16:3 8 EDT us Scan 2 Rough Patcher PROCEDURE/MINOR SURGICAL OR DERABLES Final Result * (ABNORMAL) COMPLETE BLOOD COUNT (10/03/2020 7:15 EDT) WBC 12.78(H) 4.00 - 12.40 K/cmm 10/03/2020 8:32 [facility] RBC 4.06 3.86 - 5.04 M/cmm 10/03/2020 8:32 [facility] Hemoglobin 13.1 11.6 - 15.2 gm/dL 10/03/2020 8:32 [facility] HCT 35.2 34.9 - 44.4 % 10/03/2020 8:32 [facility] MCV 87 81 - 98 fl 10/03/2020 8:32 [facility] MCH 32.3 26.7 - 33.3 pg 10/03/2020 8:32 [facility] MCHC 37.2(H) 32.1 - 35.9 gm/dL 10/03/2020 8:32 [facility] RDW-CV 12.2 <14.7 % 10/03/2020 8:32 [facility] RDW-SD 38.9 <50.4 fl 10/03/2020 8:32 [facility] PLT 372 141 - 377 K/cmm 10/03/2020 8:32 [facility] MPV 9.4(L) 9.5 - 12.7 fl 10/03/2020 8:32 [facility] Blood VENOUS BLOOD / Unknown Venipuncture / Unknown 10/03/2020 7:15 EDT 10/03/2020 8:21 EDT us Bonita See MD HEMATOLOGY & PF4 ORDERABLES F inal Result [facility] [address] [place] [address] * (ABNORMAL) BUN (10/03/2020 7:15 EDT) Pathologist [facility] BUN 6(L) 10 - 26 mg/dL 10/03/2020 9:07 EDT [facility] Blood VENOUS BLOOD / Unknown Venipuncture / Unknown 10/03/2020 7:15 EDT 10/03/2020 8:23 EDT us Bonita See MD CHEMISTRY & BLOOD GAS ORDERAB LES Final Result Performing Organization Address [facility] de Phone Number [facility] [address] [place] [address] * (ABNORMAL) CREATININE (10/03/2020 7:15 EDT) Pathologist [facility] Creatinine 0.43(L) 0.52 - 1.04 mg/dL 10/03/2020 9:07 EDT [facility] eGFR 132 >60 mL/min/1.7 3m2 10/03/2020 9:07 EDT [facility] Comment:eGFR calculated gil curtis CKD-EPI equation for non- Americans. Multiply eGFR by 1.16 for patients. Blood VENOUS BLOOD / Unknown Venipuncture / Unknown 10/03/2020 7:15 EDT 10/03/2020 8:23 EDT us Bonita See MD CHEMISTRY & BLOOD GAS ORDERAB LES Final Result Performing Organization Address City/[facility] Co de Phone Number [facility] [address] [place] [address] * (ABNORMAL) ELECTROLYTES (10/03/2020 7:15 EDT) Pathologist [facility] Sodium 135(L) 136 - 145 mEq/L 10/03/2020 9:07 EDT [facility] Potassium 3.7 3.5 - 5.0 mEq/L 10/03/2020 9:07 EDT [facility] Chloride 98 96 - 110 mEq/L 10/03/2020 9:07 EDT [facility] CO2 Total 23 22 - 32 mEq/L 10/03/2020 9:07 EDT [facility] Blood VENOUS BLOOD / Unknown Venipuncture / Unknown 10/03/2020 7:15 EDT 10/03/2020 8:23 EDT Bonita See MD CHEMISTRY & BLOOD GAS ORDERAB LES Final Result Performing Organization Address [facility] Co de Phone Number [facility] [address] [place] [address] * (ABNORMAL) POCT GLUCOSE, INTERFACED (10/03/2020 6:02 EDT) Glucose, POC 177(H) 70 - 100 mg/dL 10/03/2020 6:08 EDT [facility] event services manager ID [id number] 10/03/2020 6:08 EDT [facility] HN LAB POC COMMENT (GLUCOSE) Test Performed by Nursing Services 10/03/2020 6:08 EDT [facility] Blood CAPILLARY BLOOD / Unknown 10/03/2020 6:02 EDT 10/03/2020 6:08 EDT Bonita See MD POINT OF CARE TEST ORDERABLES Final Result Performing Organization Address [facility]/ZIP Co de Phone Number [facility] [address] [place] [address] * COVID-19 TEST [facility] PCR (10/02/2020 22:44 EDT) Swab ENTIRE NASOPHARYNX / Unknown Swab / Unknown 10/02/2020 22:44 EDT 10/02/2020 22:46 EDT Beverly Marvin MD MICROBIOLOGY - GE NERAL ORDERABLES Final Result Performing Organization Address City/[facility]/ZIP Co de Phone Number [facility] [address] [place] [address] * COVID-19 TESTING (10/02/2020 22:44 EDT) COVID-19 rt-PCR Result Negative Negative 10/03/2020 1:45 EDT [facility] Comment: This test has not [...] history, and epidemiological information. Performed on the [employer] instrument Performing Lab [place] [facility] 10/03/2020 1:45 EDT [facility] Swab ENTIRE NASOPHARYNX / Unknown Swab / Unknown 10/02/2020 22:44 EDT 10/02/2020 22:46 EDT Beverly Marvin MD MICROBIOLOGY - [facility] ORDERABLES Final Result Performing Organization Address City/State/[facility] Co de Phone Number [facility] [address] [place] [address] * CT ABDOMEN PELVIS W CONTRAST (10/02/2020 [...] suspicious osseous lesion. Multilevel discogenic endplate changes. Credit Operations Processor: No additional findings. Procedure Note Wilian Wellington [...] or suspicious osseous lesion.Multilevel discogenic endplate changes. Credit Operations Processor: No additional findings. IMPRESSION 1. No acute inflammatory process identified in the abdomen and pelvis. 2. Nonobstructing left renal calculus, unchanged. I have personally reviewed the images and the above interpretation andagree with the findings. us Beverly Marvin MD IMG CT ORDERABLES Final Result * QUANT BETA HCG, (10/02/2020 19:51 EDT) Beta HCG Quant, <5 <5 mIU/ml 10/02/2020 20:26 EDT [facility] Comment: NOTE: : Negative: Less than 5mIU/mL Indeterminant: Between 5 and 25 mIU/mL, recommend repeat testing in 48 hours Positive: Greater than 25 mIU/mL The results of this assay can be falsely lowered due to the consumption of Biotin. Blood VENOUS BLOOD / Unknown Venipuncture / Unknown 10/02/2020 19:51 EDT 10/02/2020 19:54 EDT us Beverly Marvin MD CHEMISTRY & BLOOD GAS ORDERABLES Final Result Performing Organization Address [facility] Co de Phone Number [facility] [address] [place] [address] * LACTIC ACID (10/02/2020 19:10 EDT) Pathologist [facility] Lactic Acid 1.2 <=2.0 mmol/L 10/02/2020 19:28 EDT [facility] Blood VENOUS BLOOD / Unknown Venipuncture / Unknown 10/02/2020 19:10 EDT 10/02/2020 19:16 EDT us Beverly Marvin MD CHEMISTRY & BLOOD GAS ORDERABLES Final Result Performing Organization Address [facility] Co de Phone Number [facility] [address] [place] [address] * HOLD BLUE TOP (10/02/2020 19:10 EDT) Hold Hold 10/02/2020 20:17 EDT [facility] Blood VENOUS BLOOD / Unknown Venipuncture / Unknown 10/02/2020 19:10 EDT 10/02/2020 19:15 EDT Jonas Ambrosio MD LAB INFO SERVICE AND SUPPORT & PHONE RESULT Final Result [facility] [address] [place] [address] * (ABNORMAL) SCREENING GLUCOSE (10/02/2020 19:10 EDT) [facility] Glucose, Screening 189(H) 70 - 100 mg/dL 10/02/2020 19:32 EDT [facility] Comment:Elevated screening g lucose value greater than 180 mg/dl, please order follow up Hemoglobin A1C. Blood VENOUS BLOOD / Unknown Venipuncture / Unknown 10/02/2020 19:10 EDT 10/02/2020 19:16 EDT Jonas Ambrosio MD CHEMISTRY & BLOOD GAS ORDERAB LES Final Result [facility] [address] [place] [address] * MAGNESIUM (10/02/2020 19:10 EDT) [facility] Magnesium 1.8 1.7 - 2.8 mg/dL 10/02/2020 19:28 EDT [facility] Blood VENOUS BLOOD / Unknown Venipuncture / Unknown 10/02/2020 19:10 EDT 10/02/2020 19:16 EDT us Jonas Ambrosio MD CHEMISTRY & BLOOD GAS ORDERAB LES Final Result [facility] [address] [place] [address] * TROPONIN I (10/02/2020 19:10 EDT) Troponin I (ng/mL) <0.034 <0.034 ng/mL 10/02/2020 19:40 EDT [facility] Blood VENOUS BLOOD / Unknown Venipuncture / Unknown 10/02/2020 19:10 EDT 10/02/2020 19:16 EDT Narrative [facility] - 10/02/2020 19:40 EDT The results of this assay can be falsely lowered due to the consumption of Biotin. us Jonas Ambrosio MD CHEMISTRY & BLOOD GAS ORDERAB LES Final Result Performing Organization Address [facility] Co de Phone Number [facility] [address] [place] [address] * (ABNORMAL) ELECTROLYTES (10/02/2020 19:10 EDT) Sodium 132(L) 136 - 145 mEq/L 10/02/2020 19:28 EDT [facility] Potassium 3.4(L) 3.5 - 5.0 mEq/L 10/02/2020 19:28 T [facility] Chloride 95(L) 96 - 110 mEq/L 10/02/2020 19:28 T [facility] CO2 Total 30 22 - 32 mEq/L 10/02/2020 19:28 T [facility] Blood VENOUS BLOOD / Unknown Venipuncture / Unknown 10/02/2020 19:10 EDT 10/02/2020 19:16 EDT us Jonas Ambrosio MD CHEMISTRY & BLOOD GAS ORDERAB LES Final Result Performing Organization Address [facility] Co de Phone Number [facility] [address] [place] [address] * (ABNORMAL) CREATININE (10/02/2020 19:10 EDT) Creatinine 0.45(L) 0.52 - 1.04 mg/dL 10/02/2020 19:28 EDT [facility] eGFR 130 >60 mL/min/1.7 3m2 10/02/2020 19:28 EDT [facility] Comment:eGFR calculated gil curtis CKD-EPI equation for non- Americans. Multiply eGFR by 1.16 for patients. Blood VENOUS BLOOD / Unknown Venipuncture / Unknown 10/02/2020 19:10 EDT 10/02/2020 19:16 EDT Jonas Ambrosio MD CHEMISTRY & BLOOD GAS ORDERAB LES Final Result Performing Organization Address [facility] Co de Phone Number [facility] [address] [place] [address] * (ABNORMAL) BUN (10/02/2020 19:10 EDT) Pathologist [facility] BUN 6(L) 10 - 26 mg/dL 10/02/2020 19:28 EDT [facility] Blood VENOUS BLOOD / Unknown Venipuncture / Unknown 10/02/2020 19:10 EDT 10/02/2020 19:16 EDT Jonas Ambrosio MD CHEMISTRY & BLOOD GAS ORDERAB LES Final Result Performing Organization Address City/[facility] Co de Phone Number [facility] [address] [place] [address] * (ABNORMAL) COMPLETE BLOOD COUNT AND DIFFERENTIAL (10/02/2020 19:10 EDT) WBC 13.29(H) 4.00 - 12.40 K/cmm 10/02/2020 19:32 T [facility] RBC 4.09 3.86 - 5.04 M/cmm 10/02/2020 19:32 T [facility] Hemoglobin 12.7 11.6 - 15.2 gm/dL 10/02/2020 19:32 T [facility] HCT 36.1 34.9 - 44.4 % 10/02/2020 19:32 T [facility] MCV 88 81 - 98 fl 10/02/2020 19:32 [facility] MCH 31.1 26.7 - 33.3 pg 10/02/2020 19:32 [facility] MCHC 35.2 32.1 - 35.9 gm/dL 10/02/2020 19:32 [facility] RDW-CV 12.3 <14.7 % 10/02/2020 19:32 [facility] RDW-SD 39.6 <50.4 fl 10/02/2020 19:32 [facility] PLT 355 141 - 377 K/cmm 10/02/2020 19:32 [facility] MPV 9.2(L) 9.5 - 12.7 fl 10/02/2020 19:32 [facility] % Neutrophils 57.2 % 10/02/2020 19:32 [facility] % Lymphocytes 32.1 % 10/02/2020 19:32 [facility] % Monocytes 9.0 % 10/02/2020 19:32 [facility] % Eosinophils 0.8 % 10/02/2020 19:32 [facility] % Basophils 0.5 % 10/02/2020 19:32 [facility] % Immature Grans 0.4 % 10/03/19 19:32 [facility] Absolute Neutrophils 7.62 2.20 - 8.85 K/cmm 10/02/2020 19:32 [facility] Absolute Lymphocytes 4.27(H) 1.09 - 3.30 K/cmm 10/02/2020 19:32 [facility] Absolute Monocytes 1.19(H) 0.10 - 0.80 K/cmm 10/02/2020 19:32 [facility] Absolute Eosinophils 0.10 0.03 - 0.61 K/cmm 10/02/2020 19:32 [facility] ABS Basophils 0.06 0.01 - 0.11 K/cmm 10/02/2020 19:32 [facility] Absolute Immature Grans 0.05 0.00 - 0.06 K/cmm 10/02/2020 19:32 EDT [facility] Type of Differential: Auto 10/02/2020 19:32 EDT [facility] Blood VENOUS BLOOD / Unknown Venipuncture / Unknown 10/02/2020 19:10 EDT 10/02/2020 19:15 EDT us Jonas Ambrosio MD PACKAGES & DNA PROBE ORDERABL ES Final Result [facility] [address] [place] [address] * EKG 12-LEAD (10/02/2020 19:04 EDT) 10/02/2020 19:0 4 EDT Narrative [facility] EKG - 10/27/2020 16:30 EDT ?[facility] ? Test Date: ?2020-10-02 Pat Name: ? CRISTY LUO ?Department: ?? ED ? Room: ? AC06 Gender: ? Female ? Electrician Research: ?? [id number] : ?1985 ? Requested By: BO Santizo Order Number: [id number] ? Sammie MARTÍNEZ: ?? CINDYDANY SNYDER MD ? Measurements Intervals ?[place] ? Rate: ? 92 ? P: ?59 TN: ? 155 ?QRS: ?10 QRSD: ? 91 ? T: ?0 QT: ? 356 ? QTc: ?442 ? Interpretive Statements SINUS RHYTHM Compared to ECG 10/02/2020 19:04:21 No significant changes I reviewed the tracing and have either agreed or edited the findings in this report. Electronically Signed On 10-27-2020 16:30:39 EDT by CINDY SNYDER MD. Procedure Note Cindy Snyder Jr., MD - 10/27/2020 [facility] Test Date: 2020-10-02 Pat Name: CRISTY LUO Department: ED Room: [facility] Gender: Female Electrician Research: [id number] : 1985 Requested By: BO Santizo Order Number: [id number] Reading MD: CINDY SNYDER MD Measurements Intervals [place] Rate: 92 P: 59 TN: 155 QRS: 10 QRSD: 91 T: 0 QT: 356 QTc: 442 Interpretive Statements SINUS RHYTHM Compared to ECG 10/02/2020 19:04:21 No significant changes I reviewed the tracing and have either agreed or edited the findings inthis report. Electronically Signed On 10-27-2020 16:30:39 EDT by CINDY SANDOVAL. Jonas Ambrosio MD CARDIAC ECG ORDERABLES Final Result [facility] EKG * (ABNORMAL) COMPREHENSIVE METABOLIC PANEL (CMP) (10/01/2020 11:51 EDT) Sodium 139 136 - 145 mEq/L 10/02/2020 19:47 [facility] Potassium 3.5 3.5 - 5.0 mEq/L 10/02/2020 19:47 [facility] Comment: NOTE: Interpret with caution. Prolonged sample storage may alter the result. Chloride 97 96 - 110 mEq/L 10/02/2020 19:47 [facility] CO2 Total 23 22 - 32 mEq/L 10/02/2020 19:47 [facility] Comment: NOTE: Interpret with caution. Prolonged sample storage may alter the result. Glucose 221(H) 70 - 100 mg/dL 10/02/2020 19:47 [facility] BUN 13 10 - 26 mg/dL 10/02/2020 19:47 [facility] Creatinine 0.50(L) 0.52 - 1.04 mg/dL 10/02/2020 19:47 [facility] eGFR 126 >60 mL/min/1.7 3m2 10/02/2020 19:47 [facility] Comment:eGFR calculated gil curtis CKD-EPI equation for non- Americans. Multiply eGFR by 1.16 for patients. Total Protein 6.6 6.3 - 8.2 g/dL 10/02/2020 19:47 [facility] Albumin 4.1 3.4 - 4.9 g/dL 10/02/2020 19:47 [facility] Alkaline Phosphatase 86 38 - 126 U/L 10/02/2020 19:47 [facility] AST 31 15 - 46 U/L 10/02/2020 19:47 [facility] ALT 24 <35 U/L 10/02/2020 19:47 [facility] Bilirubin, Total 0.5 <1.4 mg/dL 10/03/19 19:47 [facility] Calcium 9.6 8.5 - 10.5 mg/dL 10/02/2020 19:47 [facility] Calculated Calcium 9.5 8.5 - 10.5 mg/dL 10/02/2020 19:47 [facility] Blood VENOUS BLOOD / Unknown Venipuncture / Unknown 10/01/2020 11:51 EDT 10/01/2020 11:57 EDT Beverly Marvin MD CHEMISTRY & BLOOD GAS ORDERABLES Final Result Performing Organization Address City/[facility]/ZIP Co de Phone Number [facility] [address] [place] [address] * LIPASE (10/01/2020 11:51 EDT) Lipase 174 <251 U/L 10/02/2020 19:46 EDT [facility] Blood VENOUS BLOOD / Unknown Venipuncture / Unknown 10/01/2020 11:51 EDT 10/01/2020 11:57 EDT Beverly Marvin MD CHEMISTRY & BLOOD GAS ORDERABLES Final Result [facility] [address] [place] [address] documented in this encounter Visit Diagnoses Diagnosis Intractable vomiting- Primary Persistent vomiting Intractable vomiting Persistent vomiting Intractable vomiting with nausea, unspecified vomiting type Diabetic foot infection (HCC-CMS) Type II or unspecified type diabetes mellitus with other specified manifestations, not stated as uncontrolled 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, 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 ([facility]) Vomiting Vomiting alone documented in this encounter [...] at 0600, Until Discontinued, Routine, Indications: SUPPLEMENTAL INSULINIndications:SUPPLEMENTAL INSULIN Given 10/03/2020 7:05 EDT 2 Units [...] NOW X1, 1 dose, On Tue10/02/20 at [id number] (Given - Provider: Fermin Ramirez RN) electrolyte-A [...] Discontinued, Routine 0601 (Given - Provid er: Shilrey Monte RN)1200 (Given - Provider: Carie Cook [...] FLEXPEN) injection 1 10/03/2020 polyethylene glycol 3350 (ND RALAX) packet 17 g 1 10/03/2020 potassium chloride SA (K-DUR ) tablet 40 mEq 1 10/03/2020 ramelteon (ROZEREM) tablet 8 mg 1 Diet Count Last Ordered Date First Orde red Date DISCHARGE DIET 1 10/03/2020 Nursing Count Last Ordered Date First Orde red Date ACTIVITY INSTRUCTIONS 1 10/03/2020 BATHING INSTRUCTIONS 1 10/03/2020 DRIVING INSTRUCTIONS 1 10/03/2020 NOTIFY GAS ENGINE PERFORMANCE ENGINEER 1 10/02/2020 Admission Count Last Ordered Date [...]
--- OUTSIDE RECORDS SUMMARY | 2024-05-31 00:40 | XMS_ITS | Encounter Summary ---
Author Organization [facility] Address [address] [place] [address] Care Team Providers Care Claims Representative Name [...]
--- OUTSIDE RECORDS SUMMARY | 2024-05-31 00:41 | XMS_ITS | Encounter Summary ---
Author Organization [facility] Address [address] [place] [address] Care Team Providers Care Cotton Dispatcher Name Role Phone Unavailable Primary Care Provider Unavailabl e Reason for Referral * (Routine) - Receiving Office to Obtain Authorization Specialty Diagnoses / Procedures Referred By Contac t Referred To Contact [facility] [place] [address] [place] [address] Phone: tel: fax: Referral ID Status Reason Start Date Expiration Date Visits Requested Visits Authorized [id number] Receiving Office to Obtain Authorization Specialty Services Required 1 1 1 * (Routine) - Receiving Office to Obtain Authorization Specialty Diagnoses / Procedures Referred By Contac t Referred To Contact [facility] [place] [address] [place] [address] Phone: tel: fax: Referral ID Status Reason Start Date Expiration Date Visits Requested Visits Authorized [id number] Receiving Office to Obtain Authorization Specialty Services [...] By Kit goode Referred To Contact Diagnoses Unwanted fertility Procedures AZ LAP,RMV ADNEXAL STRUCTURE Nimisha Bay MD [address] [facility] Medical Office Building, [address] [place] [phone] Phone: tel: fax: Referral ID Status Reason Start Date Expiration Date Visits Re quested Visits Authorized [id number] 06/30/2020 1 1 Encounter Details Date Type Department Care Team (Latest Contact Info) Description 08/20/2020 9:59 EDT - 08/20/2020 15:35 EDT Hospital Encounter [facility] [place] [address] [place] [id number] Nimisha Bay MD 1 [facility] Medical Office Building, [address] [place] [phone] Discharge Disposition: Home or Self Care [...] hearing? Answer Date of Assessment Author No 05/04/2020 0:28 Sylvia Alejandro RN * Are you blind or do you have serious difficulty seeing, even when wearing glasses? Answer Date of Assessment Author No 05/04/2020 0:28 Sylvia Alejandro RN * Do you have serious difficulty walking or climbing stairs? (5 years old or older) Answer Date of Assessment Author No 05/04/2020 0:28 Sylvia Alejandro RN * Do you have difficulty dressing or bathing? (5 years old or older) Answer Date of Assessment Author No 05/04/2020 0:28 Sylvia Alejandro RN * Because of a physical, mental, or emotional condition, do you have difficulty doing errands alone such as visiting a doctor's office or shopping? (15 years old or older) Answer Date of Assessment Author No 05/04/2020 0:28 Sylvia Alejandro RN documented as of this encounter Mental Status * Because of a physical, mental, or emotional condition, do you have serious difficulty concentrating, remembering, or making decisions? (5 years old or older) Answer Entry Date Author No 05/04/2020 0:28 Sylvia Alejandro RN documented in this encounter Medications at [...] Testing QID. 100 Each 5 08/11/2020 4 gabapentin (NEURONTIN) 300 mg capsule Take 1 Cap by mouth 3 times daily. 90 Cap 2 08/01/2020 1 insulin aspart U-100 (NOVOLOG FLEXPEN) 100 unit/mL (3 mL) injectable penIndications:type 2 diabetes mellitus,as needed with meals. Inject 9 Units into the skin 3 times daily with meals. 30 mL 2 03/21/2020 2 insulin glargine (LANTUS SOLOSTAR) 100 unit/mL (3 mL) injection pen Inject 30 Units into the skin at bedtime for 90 days. 27 mL 3 12/04/2019 2 lancets One Touch Delica or other brand compatible with lancing device and covered by patient's insurance. 100 Each 5 10/01/2019 1 LORazepam (ATIVAN) 0.5 mg tablet Take 1 Tab by mouth 2 times daily as needed for up to 28 days for Anxiety. Daily Max: 1 mg 56 Tab 08/19/2020 1 metoclopramide HCl (REGLAN) 10 mg tablet Take 1 Tab by mouth 4 times daily as needed for up to 23 days for Nausea. 90 Tab 08/11/2020 1 nicotine (NICODERM CQ) 7 mg/24 hr patch Apply one patch only daily on skin without hair. Apply to a different skin site at the same time each day. 14 Patch 06/13/2020 1 ondansetron (ZOFRAN-ODT) 4 mg disintegrating tablet Take 1 Tab by mouth every 8 hours as needed for up to 30 days for Nausea. 90 Tab 08/07/2020 1 oxyCODONE (ROXICODONE) 5 mg immediate release tablet Take 1 Tab by mouth every 4 hours as needed for Pain. Daily Max: 30 mg 5 Tab 08/20/2020 1 TENS unit and electrodes combo pack 1 Each by misc (non-drug; combo route) route daily. 1 Each 08/01/2020 2 documented as of this encounter Ordered Prescriptions Prescription Sig Dispense Quantity Refills Last Filled Start Date End Date acetaminophen (TYLENOL) 325 [...] Self Nursing Home documented in this encounter Progress Notes [...] 08/18/2020 14:27 PGY-4 Obstetrics and Gynecology Pager #[phone] documented in this encounter H&P Notes * [...] this morning. FERNANDA EGAN MD 08/20/2020 11:13 Cosigned by Nimisha Bay MD at 08/20/2020 12:20 EDT Source Note - Fernanda Egan MD - [...] Egan D.O. 07/28/2020 11:05 Obstetrics/Gynecology PGY-1 Pager #[phone] documented in this encounter OR Notes * OR Surgeon - Nimisha Bay MD - 08/20/2020 1436 EDT Name: Cristy Luo :1985 Date of Service:@08/20/2020?? Surgeon: Dr. Nimisha Bay Supply Cataloguer:Tonja Egan D.O., Jackie Oropeza M.D. Procedure: Laparoscopy [...] lip of the cervix grasped with the VMLogixjanelka tenaculum. ?? Attention was then turned to [...] Egan D.O. 08/20/2020 15:22 Obstetrics/Gynecology PGY-1 Pager #[phone] ?? Attending note: I was present for [...] full cross sections identified. 08/29/2020 7:[address] [facility] Attestation There was significant resident/fellow involvement in the diagnostic evaluation of this case. By the signature below, the attending physician certifies that they have personally conducted a gross and/or microscopic examination of the described specimens and rendered or confirmed the above diagnosis. 08/29/2020 7:12 [facility] at 0712 Clinical History Unwanted fertility 08/29/2020 7:12 [facility] Gross Description A. [...] dimension). No excrescences identified within the cyst spaer. Sectioning reveals patent, unremarkable cut surfaces. Detective Precinct sections, to include the bisected fimbria, are submitted in A1 (shorter tube) and A2 (longer tube). EUNICE BAEZ(ASCP) 08/21/2020 9:18 08/29/2020 7:12 [facility] Resident/Cash w: John Smith MD 08/29/2020 7:12 [facility] Performing Lab [facility] 08/29/2020 7:12 [facility] Scanned Images 08/29/2020 7:[address] [facility] Tissue BOTH FALLOPIAN TUBES / Unknown 08/20/2020 13:15 EDT 08/20/2020 15:16 EDT us Nimisha Bay MD PATHOLOGY ORDERABLES Final Result Performing Organization Address [facility] Co de Phone Number [facility] [address] [place] [address] * (ABNORMAL) POCT GLUCOSE, INTERFACED (08/20/2020 11:26 EDT) Glucose, POC 119(H) 70 - 100 mg/dL 08/20/2020 11:[address] [facility] manager market research ID [id number] 08/20/2020 11:[address] [facility] HN LAB POC COMMENT (GLUCOSE) Test Performed by Nursing Services 08/20/2020 11:[address] [facility] Blood CAPILLARY BLOOD / Unknown 08/20/2020 11:26 EDT 08/20/2020 11:26 EDT Whit Rae MD POINT OF CARE TEST ORDERABLES Final Result Performing Organization Address [facility] de Phone Number [facility] [address] [place] [address] * TEST, URINE (08/20/2020 10:42 EDT) Test, Urine Negative Negative 08/20/2020 10:[address] [facility] Comment:False negative resul ts may occur in women who are beyond 5-8 weeks gestation. Diagnosis of should be based on a correlation of test results with typical clinical signs and symptoms. Urine VOIDED URINE SPECIMEN / Unknown Urine Collect / Unknown 08/20/2020 10:42 EDT 08/20/2020 10:46 EDT Whit Rae MD URINALYSIS ORDERABLES Final R esult [facility] [address] [place] [address] documented in this encounter Visit Diagnoses Diagnosis Admission for sterilization- Primary Sterilization 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 ([facility]) Type II or unspecified type [...] 1139 (New Bag - Prov ider: Siobhan Cahvez RN)1305 (Continued by Anesthesia - Provider: RICA [...] Routine, Intraprocedure 1410 (Given - Provid er: eFrnanda Egan MD) Linked Groups Order Group 1: [...] chlorhexidine gluconate 2 % cloth 1 Each 08/20/2020 diphenhydrAMINE (BENADRYL) i njection 12.5 mg [...]
--- OUTSIDE RECORDS SUMMARY | 2024-05-31 00:41 | XMS_ITS | Encounter Summary ---
Author Organization [facility] Address [address] [place] [address] Care Team Providers Care Laborer Hide House Name Role Phone Unavailable Primary Care Provider Unavailabl e Reason for Visit * Auth/Cert Specialty Diagnoses / Procedures Referred By Contac t Referred To Contact Diagnoses Unwanted fertility Procedures AZ LAP,RMV ADNEXAL STRUCTURE Nimisha Bay MD [address] [place] [address] Medical Office Building, [address] [place] [address] Phone: tel: fax: Referral ID Status Reason Start Date Expiration Date Visits Re quested Visits Authorized [id number] 06/30/2020 1 1 Encounter Details Date Type Department Care Team (Late st Contact Info) Description 08/20/2020 12:00 EDT - 08/20/2020 14:55 EDT Surgery [facility] OR [address] [place] [address] Nimisha Bay MD [address] [place] [address] Medical Office Building, [address] [place] [address] Laparoscopic Bilateral Salpingectomy [37234 (CPT??)] Surgery Details Date/Time Status Location OR Service Patient Class Case Cl ass Case Type Trauma Case? 08/20/2020 1200 Posted [facility] OR [address] Outpatient Surgery H - Elective Panel 1 [...] of Assessment Author No 08/09/2020 0:58 Niesha eYn RN * Do you have difficulty dressing [...] mL 3 12/04/2019 2 lancets One Touch Deledenes or other brand compatible with lancing device [...] or Self Prison documented in this encounter Progress Notes * Siobhan Chavez RN - 08/20/2020 1102 EDT Preop Covid DOS [...] 08/18/2020 14:27 PGY-4 Obstetrics and Gynecology Pager #[phone] documented in this encounter H&P Notes * [...] Egan D.O. 07/28/2020 11:05 Obstetrics/Gynecology PGY-1 Pager #[phone] documented in this encounter OR Notes * OR Surgeon - Nimisha Bay MD - 08/20/2020 3706 EDT Name: Cristy Luo :1985 Date of Service:@08/20/2020?? Surgeon: Dr. Nimisha Bay Hot Air Furnace Installer Repairer:Tonja Egan D.O., Jackie Oropeza M.D. Procedure: [...] lip of the cervix grasped with the Avangate BVlka tenaculum. ?? Attention was then turned to [...] Egan D.O. 08/20/2020 15:22 Obstetrics/Gynecology PGY-1 Pager #[phone] ?? Attending note: I was present for [...] full cross sections identified. 08/29/2020 7:12 T [facility] Attestation There was significant resident/fellow involvement in the diagnostic evaluation of this case. By the signature below, the attending physician certifies that they have personally conducted a gross and/or microscopic examination of the described specimens and rendered or confirmed the above diagnosis. 08/29/2020 7:12 [facility] at 0712 Clinical History Unwanted fertility 08/29/2020 7:12 [facility] Gross Description A. [...] spear. Sectioning reveals patent, unremarkable cut surfaces. Manager Of Engineering sections, to include the bisected fimbria, are submitted in A1 (shorter tube) and A2 (longer tube). EUNICE BAEZ(ASCP) 08/21/2020 9:18 08/29/2020 7:12 T [facility] Resident/Cash w: John Smith MD 08/29/2020 7:12 EDT [facility] Performing Lab [facility] 08/29/2020 7:12 EDT [facility] Scanned Images 08/29/2020 7:12 EDT [facility] Tissue BOTH FALLOPIAN TUBES / Unknown 08/20/2020 13:15 EDT 08/20/2020 15:16 EDT us Nimisha Bay MD PATHOLOGY ORDERABLES Final Result Performing Organization Address City/[facility]/ZIP Co de Phone Number [facility] [address] [place] [address] * (ABNORMAL) POCT GLUCOSE, INTERFACED (08/20/2020 11:26 EDT) Glucose, POC 119(H) 70 - 100 mg/dL 08/20/2020 11:26 EDT [facility] manager wastewater ID [id number] 08/20/2020 11:26 EDT [facility] HN LAB POC COMMENT (GLUCOSE) Test Performed by Nursing Services 08/20/2020 11:26 EDT [facility] Blood CAPILLARY BLOOD / Unknown 08/20/2020 11:26 EDT 08/20/2020 11:26 EDT us Whit Rae MD POINT OF CARE TEST ORDERABLES Final Result Performing Organization Address City/[facility]/ZIP Co de Phone Number [facility] [address] [place] [address] * TEST, URINE (08/20/2020 10:42 EDT) Test, Urine Negative Negative 08/20/2020 10:59 EDT [facility] Comment:False negative resul ts may occur in women who are beyond 5-8 weeks gestation. Diagnosis of should be based on a correlation of test results with typical clinical signs and symptoms. Urine VOIDED URINE SPECIMEN / Unknown Urine Collect / Unknown 08/20/2020 10:42 EDT 08/20/2020 10:46 EDT us Whit Rae MD URINALYSIS ORDERABLES Final R esult [facility] [address] [place] [address] documented in this encounter Visit Diagnoses Diagnosis Admission for sterilization- Primary Sterilization 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 ([facility]) Type II or unspecified type diabetes mellitus [...]
--- OUTSIDE RECORDS SUMMARY | 2024-05-31 00:41 | XMS_ITS | Encounter Summary ---
Author Organization [facility] Address [address] [place] [address] Care Team Providers Care Public Health Analyst Name Role Phone Unavailable Primary Care Provider Unavailabl e Reason for Visit * Reason Comments Post-OP Follow Up Encounter Details Date Type Department Care Team (Late st Contact Info) Description 09/04/2020 16:15 EDT Post-op Visit [facility] OBGYN Services - [address] [address] [place] [address] [place] [phone] Dysuria (Primary Dx) [...] Niesha Yen RN documented in this encounter Progress Notes * Clarke Joseph MD - 09/04/2020 1615 EDT Department of Obstetrics and Gynecology [facility] CC: Postop follow-up Procedure: Laparoscopic bilateral [...] established with PCP but interested in annual CASINO SURVEILLANCE OFFICER with [facility] - Recommend scheduling visit for annual in [address] Alfonso. Clarke Joseph MD Obstetrics and Gynecology, PGY-2 Pager #[phone] 09/04/20 16:35 * Cristy Alfonso MD MPH - 09/04/2020 1615 EDT Attestation statement: I discussed the patient [...] 10,000 CFU/ml Usual urogenital candis. 09/06/2020 10:45 EDT [facility] Urine URINE SPECIMEN COLLECTION, CLEAN CATCH / Unknown Urine Collect / Unknown 09/04/2020 16:57 EDT 09/04/2020 17:53 EDT Cristy Alfonso MD MPH MICROBIOLOGY - GENERAL ORDERABLES Final Result [facility] [address] [place] [address] * (ABNORMAL) URINE CHEMICAL (DIP) & SEDIMENT (MICRO) WITH REFLEX TO CULTURE (09/04/2020 16:57 EDT) Color UA Yellow Colorless, Yellow 09/04/2020 17:53 EDT [facility] Clarity UA Clear Clear 09/04/2020 17:53 EDT [facility] Glucose UA Negative Negative 09/04/2020 17:53 [facility] Bilirubin UA Negative Negative 09/04/2020 17:53 [facility] Ketones UA Trace(A) Negative 09/04/2020 17:53 [facility] Specific [place], Urine 1.032 1.001 - 1.035 09/04/2020 17:53 [...] 10(A) 0 - 2 Cells/HPF 09/04/2020 17:53 [facility] Urine WBC Count, Auto 11 - 50(A) 0 - 3 Cells/HPF 09/04/2020 17:53 [facility] Urine Squamous Count, Auto Many(A) None Seen Cells/HPF 09/04/2020 17:53 [facility] Urine Hyaline Cast Count, Auto <=10 <=10 Casts/LPF 09/04/2020 17:53 [facility] Urine Bacteria Count, Auto Few(A) None Seen Bacteria/HP F 09/04/2020 17:53 [facility] Urine URINE SPECIMEN COLLECTION, CLEAN CATCH / Unknown Urine Collect / Unknown 09/04/2020 16:57 EDT 09/04/2020 17:03 [facility] - 09/04/2020 17:53 EDT A Urine Culture test has been reflexively ordered based on result criteria from the Urine Sediment Analysis. Urine Sediment Analysis results are unreliable on urines that are unrefrigerated for >2 hrs or refrigerated >8 hrs. us Cristy Alfonso MD MPH URINALYSIS ORDERABLES Final Result [facility] [address] [place] [address] documented in this encounter Visit Diagnoses Diagnosis Dysuria- Primary documented in this encounter
--- OUTSIDE RECORDS SUMMARY | 2024-05-31 00:41 | XMS_ITS | Encounter Summary ---
Author Organization [facility] Address [address] [place] [address] Care Team Providers Care High School Combination Teacher Name Role Phone Unavailable Primary Care Provider Unavailabl e Encounter Details Date Type Department Care Team (Late st Contact Info) Description 08/14/2020 Orders Only [facility] OBGYN Services - [address] [address] Rosa Chang RN Pre-procedure lab exam (Primary [...] documented in this encounter Progress Notes * Rosa Salazar RN - 08/14/2020 1102 EST Pre-procedure COVID order placed for 08/20 documented in this encounter Plan of Treatment Not on file documented as of this encounter Visit Diagnoses Diagnosis Pre-procedure lab exam- Primary Pre-procedural laboratory examination documented in this encounter
--- OUTSIDE RECORDS SUMMARY | 2024-05-31 00:41 | XMS_ITS | Encounter Summary ---
Author Organization [facility] Address [address] [place] [address] Care Team Providers Care Tea And Spice Supervisor Name Role Phone Unavailable Primary Care [...]
--- OUTSIDE RECORDS SUMMARY | 2024-05-31 00:41 | XMS_ITS | Encounter Summary ---
Author Organization [facility] Address [address] [place] [address] Care Team Providers Care Kennel Manager Name Role Phone Unavailable Primary Care Provider Unavailabl e Reason for Visit * Reason Onset Date Comments Hospital Discharge Follow Up 08/21/2020 Encounter Details Date Type Department Care Team (Late st Contact Info) Description 08/21/2020 Telephone [facility] Adult Primary Care - [address] [id number] Benita Thompson, MARCELO Hospital Discharge Follow Up [...] Date of Assessment Author No 08/09/2020 0:58 iNesha Yen RN * Do you have difficulty [...] Encounter - Benita Thompson RN - 08/21/2020 8647 EDT Hospital Discharge Follow Up: Same Day Surgery 08/20/20 Risk Assessment: high 44 Reason for admission: Laparoscopic bilateral salpingectomy Symptoms improving? Pain level 8.5-9/10. She only tolerates OTC Tylenol. Patient is aware to contact OBGYN for pain management. Discharge instructions available? yes Medications Reviewed/prescriptions filled? yes -SHELLACKER medications resumed Support at home? Yes-spouse Home [...] the phone number to [facility] provided. BENITA THOMPSON RN 08/21/2020 documented in this encounter Plan of Treatment Not on file documented as of this encounter Visit Diagnoses Not on filedocumented in this encounter
--- OUTSIDE RECORDS SUMMARY | 2024-05-31 00:41 | XMS_ITS | Encounter Summary ---
Author Organization [facility] Address [address] [place] [id number] Care Team Providers Care Dicer Machine Operator Name Role Phone Unavailable Primary Care Provider Unavailabl e Reason for Referral * Radiology Services (Routine) - Closed Specialty Diagnoses / Procedures Referred By Annetteac rupa Referred To Contact Nuclear Medicine Diagnoses Generalized abdominal pain Emesis, persistent Type 2 diabetes mellitus with hyperosmolarity without coma, with long-term current use of insulin ([facility]) Procedures NM GASTRIC EMPTYING SOLID Broderick Irene MD Phone: tel: fax: Referral ID Status Reason Start Date Expiration Date Visits Re quested Visits Authorized [id number] Closed 08/10/2020 1 1 Reason for Visit * Radiology Services (Routine) - Closed Specialty Diagnoses / Procedures [facility] Referred To Contact Nuclear Medicine Diagnoses Generalized abdominal pain Emesis, persistent Type 2 diabetes mellitus with hyperosmolarity without coma, with long-term current use of insulin ([facility]) Procedures NM GASTRIC EMPTYING SOLID Broderick Irene MD Phone: tel: fax: Referral ID Status Reason Start Date Expiration Date Visits Re quested Visits Authorized [id number] Closed 08/10/2020 1 1 Encounter Details Date Type Department Care Team (Latest Contact Info) Description 09/09/2020 8:27 EDT - 09/09/2020 23:59 EDT Hospital Encounter [facility] Radiology Nuclear Medicine and PET - [address] [address] Generalized abdominal pain; Emesis, persistent; Type 2 diabetes mellitus with hyperosmolarity without coma, with long-term current use of insulin ([facility]) Discharge Disposition: Home or Self [...] Niesha Yen RN documented in this encounter Medications at [...] 08/11/2020 4 flash glucose scanning reader (FREESTYLE FLORA 2 READER) misc 1 Device by misc (non-drug; combo route) route continuous. 1 Each 09/02/2020 1 flash glucose sensor (FREESTYLE FLORA 2 SENSOR) kit 1 Device by misc (non-drug; combo route) route continuous. 6 Kit 3 09/02/2020 1 gabapentin (NEURONTIN) 100 mg capsule Take 100 [...] of insulin ([facility]) Use 1 pen needle as directed 4 times daily. 400 Each 2 09/02/2020 3 lancets One Touch DelSemafone or other brand compatible with lancing device and covered by patient's insurance. 100 Each 5 10/01/2019 1 LORazepam (ATIVAN) 0.5 mg tablet Take 1 Tab by mouth 2 times daily as needed for up to 28 days for Anxiety. Daily Max: 1 mg 56 Tab 08/19/2020 1 nicotine (NICODERM CQ) 7 mg/24 hr [...] 08/01/2020 2 documented as of this encounter Discharge [...] coma, with long-term current use of insulin ([facility]) POCT GLUCOSE, INTERFACED Routine 09/09/2020 8:47 EDT documented in this encounter Results * NM GASTRIC EMPTYING SOLID (09/09/2020 15:05 EDT) Anatomical Region Laterality Modality Body Nuclear Medicine 09/09/2020 16:1 0 EDT Impressions 09/09/2020 16:10 EDT Delayed gastric emptying for solid food. References: Manny et al. [place] Journal of Gastroenterology 2000. Kev et al. Gastroenterology 2006 Roshni et al. [place] Journal of Gastroenterology 2006. Narrative 09/09/2020 16:10 [...] for solid food. References: Manny et al. [place] Journal of Gastroenterology 2000. Kev et al. Gastroenterology 2006 Roshni et al. [place] Journal of Gastroenterology 2006. Broderick Irene MD IMG NM ORDERABLES Final Resul t * (ABNORMAL) POCT GLUCOSE, INTERFACED (09/09/2020 8:47 EDT) Pathologist [facility] Glucose, POC 107(H) 70 - 100 mg/dL 09/10/2020 6:44 EDT [facility] chemical production machine operator ID [id number] 09/10/2020 6:44 EDT [facility] HN LAB POC COMMENT (GLUCOSE) Test performed by Nuclear Medicine 09/10/2020 6:44 EDT [facility] Blood CAPILLARY BLOOD / Unknown 09/09/2020 8:47 EDT 09/10/2020 6:44 EDT us Provider Unknown POINT OF CARE TEST ORDERABLE S Final Result [facility] [address] [place] [address] documented in this encounter Visit Diagnoses Diagnosis Generalized abdominal pain Abdominal pain, generalized Emesis, persistent Persistent vomiting Type 2 diabetes mellitus with hyperosmolarity without coma, with long-term current use of insulin ([facility]) documented in this encounter Administered Medications Inactive [...]
--- OUTSIDE RECORDS SUMMARY | 2024-05-31 00:41 | XMS_ITS | Encounter Summary ---
Author Organization [facility] Address [address] [place] [address] Care Team Providers Care Lead Systems Developer Name Role Phone Unavailable Primary Care Provider Unavailabl e Encounter Details Date Type Department Care Team (Late st Contact Info) Description 09/02/2020 Orders Only [facility] Endocrinology - [facility] [address] [place] [address] Sara Zafar, GUSTAVO [address] [facility] [address] [place] [address] Type 2 diabetes mellitus with hyperglycemia, with long-term current use of insulin ([facility]) (Primary Dx) Social History Tobacco [...] hyperglycemia, with long-term current use of insulin ([facility])- Primary documented in this encounter
--- OUTSIDE RECORDS SUMMARY | 2024-05-31 00:41 | XMS_ITS | Encounter Summary ---
Author Organization [facility] Address [address] [place] [address] Care Team Providers Care Beef Cattle Farm Worker Name Role Phone Unavailable Primary Care [...]
--- OUTSIDE RECORDS SUMMARY | 2024-05-31 00:41 | XMS_ITS | Encounter Summary ---
Author Organization [facility] Address [address] [place] [address] Care Team Providers Care Unindentured Apprentice Name Role Phone Unavailable Primary Care Provider Unavailabl e Reason for Visit * Reason Onset Date Comments Medications Refill 09/02/2020 Encounter Details Date Type Department Care Team (Late st Contact Info) Description 09/02/2020 Refill [facility] Endocrinology - [facility] [address] [place], [place] [id number] Sara Zafar NP 62 [facility] [address] [place] [address] Medications Refill Social History Tobacco [...] Last Filled Start Date End Date insulin pen needles 31G x 16Indications:T ype 2 diabetes mellitus with hyperglycemia, with long-term current use of insulin (HCC-CMS) Use 1 pen needle as directed 4 times daily. 400 Each 2 09/02/2020 3 documented in this encounter Miscellaneous Notes * Telephone Encounter - Valencia Correia - 09/02/2020 1244 EDT Medication(s) Requested patient was supposed to have 8mm (31g) pen needles called s/p her last appointment. Screw on tips. Pharmacy [id number] - [place], [place] - [facility] [address]?[phone] Next Visit Date Visit date not found Out of Medication? Yes none left Valencia Carrillosier 09/02/2020 12:44 documented in this encounter Plan of Treatment Not on file documented as of this encounter Visit Diagnoses Diagnosis Type 2 diabetes mellitus with hyperglycemia, with long-term current use of insulin ([facility])- Primary documented in this encounter
--- OUTSIDE RECORDS SUMMARY | 2024-05-31 00:41 | XMS_ITS | Encounter Summary ---
Author Organization [facility] Address [address] [place] [address] Care Team Providers Care Chief Lock Operator Name Role Phone Unavailable Primary Care [...]
--- OUTSIDE RECORDS SUMMARY | 2024-05-31 00:41 | XMS_ITS | Encounter Summary ---
Author Organization [facility] Address [address] [place] [address] Care Team Providers Care Coffee Break Attendant Name Role Phone Unavailable Primary Care Provider Unavailabl e Reason for Visit * Reason Onset Date Comments Surgery Scheduling 08/19/2020 Encounter Details Date Type Department Care Team (Late st Contact Info) Description 08/19/2020 Telephone [facility] OBGYN Services - [facility] [address] [place], [place] [address] Nimisha Bay MD 2 [facility] Medical Office Building, [address] [place] [address] Surgery Scheduling Social History Tobacco [...]
--- OUTSIDE RECORDS SUMMARY | 2024-05-31 00:41 | XMS_ITS | Encounter Summary ---
Author Organization [facility] Address [address] [place] [address] Care Team Providers Care National Sales Associate Name Role Phone Unavailable Primary Care Provider Unavailabl e Reason for Visit * Auth/Cert Specialty Diagnoses / Procedures Referred By Contac t Referred To Contact Diagnoses Unwanted fertility Procedures [place] LAP,RMV ADNEXAL STRUCTURE Nimisha Bay MD [address] [place] [address] Medical Office Building, [address] [place] [address] Phone: tel: fax: Referral ID Status Reason Start Date Expiration Date Visits Re quested Visits Authorized [id number] 06/30/2020 1 1 Encounter Details Date Type Department Care Team (Late st Contact Info) Description 08/20/2020 13:05 EDT Anesthesia Event [facility] [place] [address] [place] [address] Cece Marrufo MD [address] [address] Jhonatan Peterson, RICA 111 [facility], [address] [place] [address] Anesthesia Record Procedure Summary Procedure [...] intact, Dressing applied 08/20/20 1138 by Siobhan Chavez, MARCELO 08/20/20 1544 by Savita Langston RN Wound 08/20/20; 1419; Inci kedar; Abdomen; laparoscopy trocar sites x3; Full thickness; 01/25/21; 2106 08/20/20 1419 by Marychuy Brown RN 01/25/216 by Nanda Gibson RN documented in this [...] Niesha Yen RN documented in this encounter OR Notes * Anesthesia Postprocedure Evaluation - Jhonatan Peterson AA - 08/20/2020 1445 EDT Patient: Stella A Young Vital signs were reviewed with the recovery nurse. [facility] Vitals Value Taken Time BP 130/73 08/20/20 [...] has a referral for therapy. ??? Diabetes ([facility]) A1c 10.3 on 11/28/2019 - poorly controlled ??? Diabetes mellitus, type 2 ([facility]) pt check blood sugars at home- [...] ??? Obesity, unspecified ??? Osteomyelitis ([facility]) of left great toe-s/p amputation ??? Peripheral neuropathy 08/12/20- Bilateral feet-Takes Gabapentin- pt just started this med. ??? Productive cough pt currently quitting smoking- clear secretions. ??? Spontaneous miscarriage 09/04/201502/18, 08/19. Followed by Dr. López/[facility] in OBGYN Relevant Problems Neuro/Psych (+) Hx of ectopic CARDIOVASCULAR (+) Migraine with aura and without status migrainosus, not intractable ENDO/GI (+) Type 2 diabetes mellitus ([facility]) (+) Type 2 diabetes mellitus with diabetic polyneuropathy, with long-term current use of insulin ([facility]) (+) 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 ([facility]) Other (+) Osteomyelitis of great toe of [...] and Staff Patient location during procedure: OR Resident/LIVESTOCK RANCH HAND: Jhonatan Peterson AA Performed: resident/LIVESTOCK RANCH HAND/AA Indications and Patient Condition Indications for airway [...] and Staff Patient location during procedure: OR Resident/LIVESTOCK RANCH HAND: Jhonatan Peterson AA Performed: resident/LIVESTOCK RANCH HAND/AA Indications and Patient Condition Indications for airway [...] at approach: 1 Cece Marrufo MD ANESTHESIA ORDERABLES Final Res ult documented in this encounter Visit Diagnoses Not [...]
--- OUTSIDE RECORDS SUMMARY | 2024-05-31 00:41 | XMS_ITS | Encounter Summary ---
Author Organization [facility] Address [address] [place] [address] Care Team Providers Care Cork Pressing Machine Operator Name Role Phone Unavailable Primary Care Provider Unavailabl e Encounter Details Date Type Department Care Team (Late st Contact Info) Description 09/11/2020 Community Health Team [facility] [address] [facility], [address] [place] [address] Briana Larson [address] [facility] [address] [place] [address] Social History Tobacco Use Types Packs/Day Years [...] documented in this encounter Progress Notes * Briana Larson [...] patient as discussed. .. Adult Primary Care [place], [address] [place] [address] Total Time: 15 min phone, 20 min care coordination, 10 min charting Referral: Counseling Follow up: Consult only Status: Graduated documented in this encounter Plan of Treatment Not on file documented as of this encounter Visit Diagnoses Not on filedocumented in this encounter
--- OUTSIDE RECORDS SUMMARY | 2024-05-31 00:41 | XMS_ITS | Encounter Summary ---
Author Organization [facility] Address [address] [place] [address] Care Team Providers Care Laundry Operator Name Role Phone Unavailable Primary Care Provider Unavailabl e Reason for Visit * Reason Onset Date Comments Results 09/12/2020 Encounter Details Date Type Department Care Team (Late st Contact Info) Description 09/12/2020 Telephone [facility] OBGYN [address] [place], [place] [phone] [place] [address] [place] [phone] Results Social History [...] Joseph MD Obstetrics and Gynecology, PGY-2 Pager #[phone] 09/12/20 9:42 documented in this encounter Plan of Treatment Not on file documented as of this encounter Visit Diagnoses Not on filedocumented in this encounter
--- OUTSIDE RECORDS SUMMARY | 2024-05-31 00:41 | XMS_ITS | Encounter Summary ---
Author Organization [facility] Address [address] [place] [address] Care Team Providers Care Concessionist Name Role Phone Unavailable Primary Care Provider Unavailabl e Reason for Visit * Reason Comments Follow-up Encounter Details Date Type Department Care Team (Latest Contact Info) Description 09/15/2020 9:45 EDT Office Visit [facility] Adult Primary Care - [address] [address] Tonja Alejandro PA-C [address] [place] [address] [address] [place] [address] Type 2 diabetes mellitus with hyperosmolarity without coma, with long-term current use of insulin ([facility]) (Primary Dx); Gastroparesis; Chronic bilateral [...] Patient reports that she followed up with [facility] TE[facility]ER and underwent a laparoscopic bilateral salpingectomy on [...] worse. She has done physical therapy in [place] specifically pool therapy in the past. She also reports that she has a lot of excessive skin from her weight loss. She thinks that these pulls on the back muscles. She is interested in the future of possibly getting skin removal. Patient reports that on Tuesday she is traveling out to [place] prior self. She has severe anxiety whenit [...] Anxiety regarding this upcoming airplane flight to [place] -patient already has a prescription for lorazepam, [...] place for injection therapy. Tonja Alejandro PA-C [facility] Adult Primary [facility] 09/15/2020 9:59 I spent a total of [...] current use of insulin ([facility])- Primary Gastroparesis Chronic bilateral thoracic back pain Lumbar pain Lumbago documented in this encounter
--- OUTSIDE RECORDS SUMMARY | 2024-05-31 00:41 | XMS_ITS | Encounter Summary ---
Author Organization [facility] Address [address] [place] [address] Care Team Providers Care Combiner Name Role Phone Unavailable Primary Care Provider Unavailabl e Reason for Visit * Reason Comments Diabetes Encounter Details Date Type Department Care Team (Latest Contact Info) Description 08/27/2020 10:30 EDT Office Visit [facility] Endocrinology - [facility] [address] [place] [address] Sara Zafar NP 62 [facility] [address] [place] [address] Anxiety and depression (Primary Dx); Gastroparesis; 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 ([facility]) Social History Tobacco Use Types [...] Niesha Yen RN documented in this encounter Patient Instructions * Patient Instructions* Sara Zafar APRN - 08/27/2020 10:30 EDT Send August BS to [email or web address] Apply for Freestyle Vignesh CGM. Remington's Nir Ozempic 0.25 mg weekly for 4 weeks.. If tolerated increased to 0.5 mg weekly for 4 weeks and athn To 1.0 weekly. If severe nausea drop to lower dose for another month and retry. Try to avoid bolusing between snacks. RD referral F/U in 4 months with new ADJUNCT COMMUNICATIONS FACULTY MEMBER. documented in this encounter Ordered Prescriptions Prescription [...] - 08/27/2020 1030 EDT Subjective: [facility] F/U Note T Patient [...] with emesis and discharged. - Admitted 08/08 -08/10 for suspected gastroparesis after could not get [...] trimester miscarriages, most recently terminated a at [facility] 10/28/2019. Recurrent loss is attributed to to poorly controlled type 2 diabetes in conjunction with tobacco dependence. She saw SYSTEM SOFTWARE PROGRAMMER on 11/03/2018, and was advised to get [...] siblings, knows about 2, no DM. 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 Previous [...] 2 tabs daily. 2. Send BS to [email or web address] 3. Kathleen Medellin CGM. ordered [facility] 4. Try to avoid bolusing between snacks. 5. RD referral 6. Consider using 1/2 unit pen for Novolog. 6. F/U in 4 months with new ADJUNCT COMMUNICATIONS FACULTY MEMBER as I will be retiring in October. [...] with left diabetic foot ulcer ([facility]) Type II or unspecified type diabetes mellitus with other specified manifestations, not stated as uncontrolled documented in this encounter Historical Medications * This list may reflect changes made after this encounter. gabapentin (NEURONTIN) 100 mg capsule Take 100 mg by mouth 2 times daily before breakfast and lunch. 1 added in this encounter
--- OUTSIDE RECORDS SUMMARY | 2024-05-31 00:41 | XMS_ITS | Encounter Summary ---
Author Organization [facility] Address [address] [place] [address] Care Team Providers Care Product Picker Name Role Phone Unavailable Primary Care Provider Unavailabl e Reason for Visit * Reason Onset Date Comments Labs Only 09/12/2020 Encounter Details Date Type Department Care Team (Late st Contact Info) Description 09/12/2020 Telephone [facility] Adult Primary Care - [place] [address] [place], [place] [address] James Partida, RN Labs Only Social History [...] Telephone Encounter - James Partida - 09/12/2020 0033 EDT Incoming call from Stella. Relayed Tonja Alejandro's message below Patient verbalized understanding with no barriers to learning and agrees with plan of care. JAMES PARTIDA RN 09/12/2020 16:53 * Telephone Encounter - James Partida - 09/12/2020 1649 EDT Outgoing call to Stella. Left message to call back to discuss. [...]
--- OUTSIDE RECORDS SUMMARY | 2024-05-31 00:41 | XMS_ITS | Encounter Summary ---
Author Organization [facility] Address [address] [place] [address] Care Team Providers Care Environmental Control Administrator Name Role Phone Unavailable Primary Care Provider Unavailabl e Reason for Visit * Reason Onset Date Comments Procedure 08/18/2020 Encounter Details Date Type Department Care Team (Late st Contact Info) Description 08/18/2020 Orders Only [facility] OBGYN Services - [facility] [address] [place], [place] [phone] Nimisha Bay MD 2 [facility] Medical Office Building, [address] [place] [address] Encounter for preprocedure screening laboratory [...] rt-PCR Result Negative Negative 08/19/2020 15:57 EDT [facility] Comment: This test has [...] developed and its performance characteristics determined by [facility]. It has not been cleared [...] testing. This test is based on the [facility] COVID-19 Emergency Use Authorization (EUA) assay, with minor modification as defined by the FDA Performed on the Wolongeo 7 Flex RT-PCR System. Performing Lab [facility] 08/19/2020 15:57 EDT [facility] Swab ENTIRE NASOPHARYNX / Unknown Swab / Unknown 08/18/2020 16:23 EDT 08/18/2020 16:23 EDT us Nimisha Bay MD MICROBIOLOGY - GENERAL CLEMENTE GOLDEN Final Result [facility] [address] [place] [address] documented in this encounter Visit Diagnoses Diagnosis Encounter for preprocedure screening laboratory testing for COVID-19- Primary documented in this encounter
--- OUTSIDE RECORDS SUMMARY | 2024-05-31 00:41 | XMS_ITS | Encounter Summary ---
Author Organization [facility] Address [address] [place] [address] Care Team Providers Care Video Journalist Name Role Phone Unavailable Primary Care Provider Unavailabl e Reason for Visit * Reason Onset Date Comments Paperwork request 08/29/2020 paperwork for adoption Encounter Details Date Type Department Care Team (Late st Contact Info) Description 08/29/2020 Telephone [facility] Adult Primary Care - [address] [address] Tonja Alejandro PA-C [address] [place] [address] [place] [address] Paperwork request (paperwork for adoption) Social [...] tomorrow west side of clinic. will pickle solution maker paperwork then for both. * Telephone Encounter - Tonja Alejandro PA-C - 08/29/2020 1611 EDT Form filled out. Will place in [facility] box to be sent out. * Telephone Encounter - Jesi Lua, MARCELO - 08/29/2020 1028 EDT Form put in Tonja DAWSON's mailbox. * Telephone Encounter - Sagnita George - 08/29/2020 0910 EDT Ms. Luo's leaves adoption paperwork to be completed. This will be placed in the [facility] mailbox. documented in this encounter Plan of Treatment Not on file documented as of this encounter Visit Diagnoses Not on filedocumented in this encounter
--- OUTSIDE RECORDS SUMMARY | 2024-05-31 00:41 | XMS_ITS | Encounter Summary ---
Author Organization Health system Address [address] [place] [address] Care Team Providers Care Chauffeur Name Role Phone Unavailable Primary Care Provider [...]
--- OUTSIDE RECORDS SUMMARY | 2024-05-31 00:41 | XMS_ITS | Encounter Summary ---
Author Organization [facility] Address [address] [place] [address] Care Team Providers Care Citizen Participation Specialist Name Role Phone Unavailable Primary Care Provider Unavailabl e Encounter Details Date Type Department Care Team (Latest Contact Info) Description 08/12/2020 10:30 EST - 08/12/2020 23:59 EST Hospital Encounter [facility] Pre-Surgical Testing [address] [place], [place] [id number] Discharge Disposition: Home or Self Care Social [...] Answer Entry Date Author No 08/09/2020 0:58 EST Dalit, Florm elynne, RN documented in this encounter Medications at [...] Daily Max: 1.5 mg 30 Tab 08/07/2020 1 metoclopramide HCl (REGLAN) 10 mg tablet [...] instruct them to call us back at [phone] to report symptoms (If patient is in [...]
--- OUTSIDE RECORDS SUMMARY | 2024-05-31 00:41 | XMS_ITS | Encounter Summary ---
Author Organization [facility] Address [address] [place] [address] Care Team Providers Care Environmental Air Specialist Name Role Phone Unavailable Primary Care Provider Unavailabl e Reason for Visit * Reason Comments Hospital Discharge Follow Up Encounter Details Date Type Department Care Team (Latest Contact Info) Description 08/14/2020 9:00 EST Office Visit [facility] Adult Primary Care - [address] [phone] Tonja Alejandro PA-C [address] [place] [address] [address] [place] [address] Type 2 diabetes mellitus with hyperosmolarity without coma, with long-term current use of insulin ([facility]) (Primary Dx); Gastroparesis Social History Tobacco Use [...] Progress Notes * Tonja Alejandro PA-C - 08/14/2020 0900 EST Internal Medicine [...] Follow Up 1 month Tonja Alejandro PA-C [facility] 08/19/2020 9:13 I spent a total of [...] coma, with long-term current use of insulin ([facility])- Primary Gastroparesis documented in this encounter Discontinued Medications Medication Sig Discontinue Reason Start Date End Da te LORazepam (ATIVAN) 0.5 mg tablet Take 1 Tab by mouth 3 times daily as needed for Anxiety. Daily Max: 1.5 mg Reorder 08/07/2020 08/14/2020 documented as of this encounter
--- OUTSIDE RECORDS SUMMARY | 2024-05-31 00:41 | XMS_ITS | Encounter Summary ---
Author Organization [facility] Address [address] [place] [address] Care Team Providers Care Inserter Promotional Item Name Role Phone Unavailable Primary Care Provider Unavailabl e Reason for Visit * Reason Onset Date Comments Hospital Discharge Follow Up 08/11/2020 Encounter Details Date Type Department Care Team (Late st Contact Info) Description 08/11/2020 Telephone [facility] Adult Primary Care [address] [id number] Tonja Alejandro PA-C [address] [place] [address] [place] [phone] Hospital Discharge Follow Up Social History [...] days for Nausea. 90 Tab 08/11/2020 1 metoclopramide HCl (REGLAN) 10 mg tablet Take 1 Tab by mouth 4 times daily as needed for up to 23 days for Nausea. 90 Tab 08/11/2020 1 blood glucose test strips One Touch Verio IQ or other brand compatible with meter and covered by patient's insurance. Testing QID. 100 Each 5 08/11/2020 4 documented in this encounter Miscellaneous Notes [...]
--- OUTSIDE RECORDS SUMMARY | 2024-05-31 00:41 | XMS_ITS | Encounter Summary ---
Author Organization [facility] Address [address] [place] [address] Care Team Providers Care Spindle Repairer Name Role Phone Unavailable Primary Care Provider Unavailabl e Encounter Details Date Type Department Care Team (Latest Contact Info) Description 08/18/2020 16:20 EDT Phlebotomy Only [facility] - [place] [address] [place] [address] Encounter for preprocedure screening laboratory testing for [...] Priority Date/Time Associated Diagnosis Comments ZZCOVID-19 TEST [facility] PCR STAT 08/18/2020 16:23 EDT Encounter for preprocedure screening laboratory testing for COVID-19 COVID-19 TESTING STAT 08/18/2020 16:2 3 EDT Encounter for preprocedure screening laboratory testing for COVID-19 documented in this encounter Results * COVID-19 TEST [facility] PCR (08/18/2020 16:23 EDT) Swab ENTIRE NASOPHARYNX / Unknown Swab / Unknown 08/18/2020 16:23 EDT 08/18/2020 16:23 EDT Nimisha Bay MD MICROBIOLOGY - GENERAL CLEMENTE GOLDEN Final Result [facility]ORY [facility] [address] [place] [address] * COVID-19 TESTING (08/18/2020 16:23 EDT) COVID-19 rt-PCR Result Negative Negative 08/19/2020 15:57 EDT [facility] Comment: This test has [...] developed and its performance characteristics determined by [facility]. It has not been cleared or approved [...] testing. This test is based on the [facility] COVID-19 Emergency Use Authorization (EUA) assay, with minor modification as defined by the FDA Performed on the Scheduling Employee Scheduling Software Flex RT-PCR System. Performing Lab [facility] Lab 08/19/2020 15:57 EDT [facility] Swab ENTIRE NASOPHARYNX / Unknown Swab / Unknown 08/18/2020 16:23 EDT 08/18/2020 16:23 EDT us Nimisha Bay MD MICROBIOLOGY - GENERAL CLEMENTE GOLDEN Final Result [facility] [address] [place] [address] documented in this encounter Visit Diagnoses Diagnosis Encounter for preprocedure screening laboratory testing for COVID-19 documented in this encounter
--- OUTSIDE RECORDS SUMMARY | 2024-05-31 00:41 | XMS_ITS | Encounter Summary ---
Author Organization [facility] Address [address] [place] [address] Care Team Providers Care Chair And Couch Maker Name Role Phone Unavailable Primary Care [...] 7:17 EDT - 09/30/2020 12:44 EDT Emergency [facility] Emergency Department - Main [address] [id number] Doris Moreno MD [address] [facility], Level [address] [place] [address] Gastroparesis (Primary Dx); Non-intractable vomiting, [...] be sent through Care Everywhere. * Gastroparesis ([place]) * Nausea and Vomiting ([place]) documented in this encounter Medications at Time [...] 12/04/2019 2 insulin pen needles 31G x 5/16Indications :Type 2 diabetes mellitus with hyperglycemia, with long-term current use of insulin ([facility]) Use 1 pen needle as directed 4 times daily. 400 Each 2 09/02/2020 3 lancets One Touch Delica or other brand compatible with lancing device and covered by patient's insurance. 100 Each 5 10/01/2019 1 nicotine (NICODERM CQ) 7 mg/24 hr [...] in this encounter ED Notes * Kemar Vang RN - 09/30/2020 1243 EDT NAD at [...] at the [facility] on 09/30/2020 Scribe attestation: This documentation [...] Glucose, POC 316 (*) Final Tech ID [id number] Final HN LAB POC COMMENT (GLUCOSE) Test Performed by Nursing Services Final POCT BLOOD GAS, EG6 I-STAT - Abnormal pH, i-STAT 7.53 (*) Final pCO2, i-STAT 35 Final pO2, i-STAT 34 (*) Final TCO2, i-STAT 30 (*) Final O2 Saturation, i-STAT 74 (*) Final Base Excess, i-STAT 6 (*) Final Sample Source VENOUS Final Tech ID [id number] Final Comment (EG6) Final Value: Test Performed by Respiratory. For non-arterial reference ranges, please see ISTAT procedure POCT GLUCOSE, INTERFACED - Abnormal Glucose, POC 210 (*) Final Tech ID [id number] Final HN LAB POC COMMENT (GLUCOSE) Test Performed by Nursing Services Final POCT GLUCOSE, INTERFACED - Abnormal Glucose, POC 202 (*) Final Tech ID [id number] Final HN LAB POC COMMENT (GLUCOSE) Test [...] (10/04/2020 16:29 EDT) 10/04/2020 16:2 9 EDT us Scan 2 Enterprise Infrastructure Architect PROCEDURE/MINOR SURGICAL OR DERABLES Final Result * (ABNORMAL) POCT GLUCOSE, INTERFACED (09/30/2020 11:30 EDT) Glucose, POC 202(H) 70 - 100 mg/dL 09/30/2020 11:31 EDT [facility] underwear finisher ID [id number] 09/30/2020 11:31 EDT [facility] HN LAB POC COMMENT (GLUCOSE) Test Performed by Nursing Services 09/30/2020 11:31 EDT [facility] Blood CAPILLARY BLOOD / Unknown 09/30/2020 11:30 EDT 09/30/2020 11:31 EDT us Doris Moreno MD POINT OF CARE TEST ORDERABLES F inal Result [facility] [address] [place] [address] * (ABNORMAL) POCT GLUCOSE, INTERFACED (09/30/2020 10:48 EDT) Glucose, POC 210(H) 70 - 100 mg/dL 09/30/2020 11:31 EDT [facility] underwear finisher ID [id number] 09/30/2020 11:31 EDT [facility] HN LAB POC COMMENT (GLUCOSE) Test Performed by Nursing Services 09/30/2020 11:31 EDT [facility] Blood CAPILLARY BLOOD / Unknown 09/30/2020 10:48 EDT 09/30/2020 11:31 EDT Doris Moreno MD POINT OF CARE TEST ORDERABLES F inal Result Performing Organization Address City/[facility] Co de Phone Number [facility] [address] [place] [address] * TROPONIN I (09/30/2020 8:55 EDT) Troponin I (ng/mL) <0.034 <0.034 ng/mL 09/30/2020 9:24 EDT [facility] Blood VENOUS BLOOD / Unknown Venipuncture / Unknown 09/30/2020 8:55 EDT 09/30/2020 8:58 EDT Narrative [facility] - 09/30/2020 9:24 EDT The results of this assay can be falsely lowered due to the consumption of Biotin. Doris Moreno MD CHEMISTRY & BLOOD GAS ORDERABLE S Final Result Performing Organization Address [facility] Co de Phone Number [facility] [address] [place] [address] * (ABNORMAL) BETA HYDROXYBUTYRATE (09/30/2020 8:45 EDT) Beta Hydroxybutyrate 0.7(H) <0.4 mmol/L 09/30/2020 9:14 EDT [facility] Blood VENOUS BLOOD / Unknown Venipuncture / Unknown 09/30/2020 8:45 EDT 09/30/2020 8:50 EDT Doris Moreno MD CHEMISTRY & BLOOD GAS ORDERABLE S Final Result Performing Organization Address [facility]/ZIP Co de Phone Number [facility] [address] [place] [address] * LIPASE (09/30/2020 8:45 EDT) Lipase 108 <251 U/L 09/30/2020 9:09 EDT [facility] Blood VENOUS BLOOD / Unknown Venipuncture / Unknown 09/30/2020 8:45 EDT 09/30/2020 8:50 EDT us Doris Moreno MD CHEMISTRY & BLOOD GAS ORDERABLE S Final Result [facility] [address] [place] [address] * (ABNORMAL) SCREENING GLUCOSE (09/30/2020 8:45 EDT) Glucose, Screening 268(H) 70 - 100 mg/dL 09/30/2020 9:10 EDT [facility] Comment:Elevated screening g lucose value greater than 180 mg/dl, please order follow up Hemoglobin A1C. Blood VENOUS BLOOD / Unknown Venipuncture / Unknown 09/30/2020 8:45 EDT 09/30/2020 8:50 EDT us Doris Moreno MD CHEMISTRY & BLOOD GAS ORDERABLE S Final Result [facility] [address] [place] [address] * (ABNORMAL) MAGNESIUM (09/30/2020 8:45 EDT) Magnesium 1.6(L) 1.7 - 2.8 mg/dL 09/30/2020 9:09 EDT [facility] Blood VENOUS BLOOD / Unknown Venipuncture / Unknown 09/30/2020 8:45 EDT 09/30/2020 8:50 EDT us Doris Moreno MD CHEMISTRY & BLOOD GAS ORDERABLE S Final Result [facility] [address] [place] [address] * ELECTROLYTES (09/30/2020 8:45 EDT) Sodium 144 136 - 145 mEq/L 09/30/2020 9:09 EDT [facility] Potassium 4.0 3.5 - 5.0 mEq/L 09/30/2020 9:09 EDT [facility] Chloride 104 96 - 110 mEq/L 09/30/2020 9:09 EDT [facility] CO2 Total 24 22 - 32 mEq/L 09/30/2020 9:09 EDT [facility] Blood VENOUS BLOOD / Unknown Venipuncture / Unknown 09/30/2020 8:45 EDT 09/30/2020 8:50 EDT us Doris Moreno MD CHEMISTRY & BLOOD GAS ORDERABLE S Final Result Performing Organization Address City/[facility]/ZIP Co de Phone Number [facility] [address] [place] [address] * (ABNORMAL) CREATININE (09/30/2020 8:45 EDT) Creatinine 0.43(L) 0.52 - 1.04 mg/dL 09/30/2020 9:09 EDT [facility] eGFR 132 >60 mL/min/1.7 3m2 09/30/2020 9:09 EDT [facility] Comment:eGFR calculated gil curtis CKD-EPI equation for non- Americans. Multiply eGFR by 1.16 for patients. Blood VENOUS BLOOD / Unknown Venipuncture / Unknown 09/30/2020 8:45 EDT 09/30/2020 8:50 EDT us Doris Moreno MD CHEMISTRY & BLOOD GAS ORDERABLE S Final Result [facility] [address] [place] [address] * BUN (09/30/2020 8:45 EDT) BUN 16 10 - 26 mg/dL 09/30/2020 9:09 EDT [facility] Blood VENOUS BLOOD / Unknown Venipuncture / Unknown 09/30/2020 8:45 EDT 09/30/2020 8:50 EDT us Doris Moreno MD CHEMISTRY & BLOOD GAS ORDERABLE S Final Result [facility] [address] [place] [address] * XR FOOT LEFT 1-2 VIEWS (09/30/2020 [...] above interpretation andagree with the findings. us Doris Moreno MD IMG DIAGNOSTIC IMAGING ORDERABL ES Final Result * XR CHEST PORTABLE 1 VIEW (09/30/2020 [...] aspiration identified. Doris Moreno MD IMG DIAGNOSTIC IMAGING ORDERABL ES Final Result * HOLD BLUE TOP (09/30/2020 7:40 EDT) Hold Hold 09/30/2020 8:47 EDT [facility] Blood VENOUS BLOOD / Unknown Venipuncture / Unknown 09/30/2020 7:40 EDT 09/30/2020 7:45 EDT Doris Moreno MD LAB INFO SERVICE AND SUPPORT & PHONE RESULT Final Result [facility] [address] [place] [address] * (ABNORMAL) COMPLETE BLOOD COUNT AND DIFFERENTIAL (09/30/2020 7:40 EDT) WBC 15.61(H) 4.00 - 12.40 K/cmm 09/30/2020 8:01 [facility] RBC 4.40 3.86 - 5.04 M/cmm 09/30/2020 8:01 [facility] Hemoglobin 13.7 11.6 - 15.2 gm/dL 09/30/2020 8:01 [facility] HCT 38.6 34.9 - 44.4 % 09/30/2020 8:01 [facility] MCV 88 81 - 98 fl 09/30/2020 8:01 [facility] MCH 31.1 26.7 - 33.3 pg 09/30/2020 8:01 [facility] MCHC 35.5 32.1 - 35.9 gm/dL 09/30/2020 8:01 [facility] RDW-CV 12.6 <14.7 % 09/30/2020 8:01 [facility] RDW-SD 40.1 <50.4 fl 09/30/2020 8:01 [facility] PLT 391(H) 141 - 377 K/cmm 09/30/2020 8:01 [facility] MPV 10.0 9.5 - 12.7 fl 09/30/2020 8:01 [facility] % Neutrophils 87.2 % 09/30/2020 8:01 [facility] % Lymphocytes 9.6 % 09/30/2020 8:01 [facility] % Monocytes 2.6 % 09/30/2020 8:01 [facility] % Eosinophils 0.0 % 09/30/2020 8:01 [facility] % Basophils 0.2 % 09/30/2020 8:01 [facility] % Immature Grans 0.4 % 10/01/19 8:01 [facility] Absolute Neutrophils 13.61(H) 2.20 - 8.85 K/cmm 09/30/2020 8:01 [facility] Absolute Lymphocytes 1.50 1.09 - 3.30 K/cmm 09/30/2020 8:01 [facility] Absolute Monocytes 0.41 0.10 - 0.80 K/cmm 09/30/2020 8:01 [facility] Absolute Eosinophils 0.00(L) 0.03 - 0.61 K/cmm 09/30/2020 8:01 [facility] ABS Basophils 0.03 0.01 - 0.11 K/cmm 09/30/2020 8:01 [facility] Absolute Immature Grans 0.06 0.00 - 0.06 K/cmm 09/30/2020 8:01 EDT [facility] Type of Differential: Auto 09/30/2020 8:01 [facility] Blood VENOUS BLOOD / Unknown Venipuncture / Unknown 09/30/2020 7:40 EDT 09/30/2020 7:45 EDT us Doris Moreno MD PACKAGES & DNA PROBE ORDERABLES Final Result [facility] [address] [place] [address] * (ABNORMAL) POCT BLOOD GAS, EG6 I-STAT (09/30/2020 7:34 EDT) iSTAT pH 7.53(H) 7.35 - 7.45 09/30/2020 7:38 [facility] iSTAT pCO2 35 35 - 45 mmHg 09/30/2020 7:38 [facility] i-STAT pO2 34(L) 80 - 105 mmHg 09/30/2020 7:38 [facility] iSTAT TCO2 30(H) 23 - 27 mmol/L 09/30/2020 7:38 [facility] i-STAT O2 Saturation 74(L) 95 - 98 % 09/30/2020 7:38 [facility] Base Excess 6(H) -2 - 3 mmol/L 09/30/2020 7:38 [facility] Sample Source VENOUS 09/30/2020 7:38 [facility] underwear finisher ID [id number] 09/30/2020 7:38 [facility] Comment (EG6) Test Performed by Respiratory. For non-arterial reference ranges, please see ISTAT procedure 09/30/2020 7:38 [facility] Comment:For arterial collect ion, the Laboratory recommends that the Modified Obi test be performed to determine that collateral circulation is present from the ulnar artery in the event that thrombosis of the radial artery should occur. Performance of the Modified Obi test should be documented in the patients' chart Blood VENOUS BLOOD / Unknown 09/30/2020 7:34 EDT 09/30/2020 7:38 EDT us Doris Moreno MD POINT OF CARE TEST ORDERABLES F inal Result [facility] [address] [place] [address] * EKG 12-LEAD (09/30/2020 7:29 EDT) 09/30/2020 7:29 EDT Narrative [facility] EKG - 10/04/2020 16:24 EDT ?[facility] Emergency ? Test Date: ?2020-09-30 Pat Name: ? CRISTY LUO ?Department: ?? ED ? Room: ? AC17 Gender: ? Female ? Safety Advisor: ?? [id number] : ?1985 ? Requested By: DIAN Huizar Order Number: [id number] ? Sammie MARTÍNEZ: ?? TRACE SHAUN MARTÍNEZ ? Measurements Intervals ?Chloride ? Rate: ? 70 ? P: ?36 AR: ? 139 ?QRS: ?10 QRSD: ? 88 ? T: ?3 QT: ? 418 ? QTc: ?452 ? Interpretive Statements SINUS RHYTHM WITH MARKED SINUS ARRHYTHMIA Compared to ECG 08/08/2020 19:04:21 SINUS ARRHYTHMIA now present I reviewed the tracing and have either agreed or edited the findings in this report. Electronically Signed On 10-04-2020 16:24:06 EDT by CAROLINA DUNN MD. Procedure Note Carolina Dunn MD - 10/04/2020 [facility] Emergency Test Date: 2020-09-30 Pat Name: CRISTY LUO Department: ED Room: [facility] Gender: Female Safety Advisor: [id number] : 1985 Requested By: DIAN Huizar Order Number: [id number] Reading MD: CAROLINA DUNN MD Measurements Intervals Chloride Rate: 70 P: 36 AR: 139 QRS: 10 QRSD: 88 T: 3 QT: 418 QTc: 452 Interpretive Statements SINUS RHYTHM WITH MARKED SINUS ARRHYTHMIA Compared to ECG 08/08/2020 19:04:21 SINUS ARRHYTHMIA now present I reviewed the tracing and have either agreed or edited the findings inthis report. Electronically Signed On 10-04-2020 16:24:06 EDT by CAROLINA RICHTER. us Doris Moreno MD CARDIAC ECG ORDERABLES Final Re sult [facility] EKG * (ABNORMAL) POCT GLUCOSE, INTERFACED (09/30/2020 7:25 EDT) Glucose, POC 316(H) 70 - 100 mg/dL 09/30/2020 7:29 EDT [facility] underwear finisher ID [id number] 09/30/2020 7:29 EDT [facility] HN LAB POC COMMENT (GLUCOSE) Test Performed by Nursing Services 09/30/2020 7:29 EDT [facility] Blood CAPILLARY BLOOD / Unknown 09/30/2020 7:25 EDT 09/30/2020 7:29 EDT Doris Moreno MD POINT OF CARE TEST ORDERABLES F inal Result Performing Organization Address City/[facility]/ZIP Co de Phone Number [facility] [address] [place] [address] documented in this encounter Visit Diagnoses Diagnosis [...]
--- OUTSIDE RECORDS SUMMARY | 2024-05-31 00:42 | XMS_ITS | Encounter Summary ---
Author Organization [facility] Address [address] [place] [address] Care Team Providers Care Shipping And Receiving Associate Name Role Phone Unavailable Primary Care [...] Sylvia Alejandro RN documented in this encounter Plan of Treatment Not on file documented as of this encounter Visit Diagnoses Not on filedocumented in this encounter
--- OUTSIDE RECORDS SUMMARY | 2024-05-31 00:42 | XMS_ITS | Encounter Summary ---
Author Organization [facility] Address [address] [place] [address] Care Team Providers Care Business Information Manager Name Role Phone Unavailable Primary Care Provider Unavailabl e Reason for Visit * Reason Onset Date Comments No Show 06/27/2020 Encounter Details Date Type Department Care Team (Late st Contact Info) Description 06/27/2020 Telephone [facility] Adult Primary Care - [address] [phone] Tonja Alejandro PA-C [address] [place] [address] [place] [phone] No Show Social History Tobacco Use [...] Sylvia Alejandro RN documented in this encounter Miscellaneous Notes [...]
--- OUTSIDE RECORDS SUMMARY | 2024-05-31 00:42 | XMS_ITS | Encounter Summary ---
Author Organization [facility] Address [address] [place] [address] Care Team Providers Care Tube Building Machine Operator Name Role Phone Unavailable Primary Care Provider Unavailabl e Reason for Visit * Reason Onset Date Comments COVID-19 06/30/2020 Encounter Details Date Type Department Care Team (Late st Contact Info) Description 06/30/2020 Orders Only [facility] OBGYN Services - [address] [address] Susana Tomlinson, RN Sterilization (Primary Dx) Social [...] Sylvia Alejandro RN documented in this encounter Progress Notes * Susana Tomlinson, MARCELO - 06/30/2020 1550 EST COVID screening ordered for Sterilization on 08/20/[address] Flynn. documented in this encounter Plan of Treatment Not on file documented as of this encounter Visit Diagnoses Diagnosis Sterilization- Primary documented in this encounter
--- OUTSIDE RECORDS SUMMARY | 2024-05-31 00:42 | XMS_ITS | Encounter Summary ---
Author Organization [facility] Address [address] [place] [address] Care Team Providers Care Motion Picture Cameraman Name Role Phone Unavailable Primary Care Provider Unavailabl e Reason for Visit * Reason Comments Telemedicine Video Visit * Consult (Routine) - Order Cancelled Specialty Diagnoses / Procedures Referred By Contlesli t Referred To Contact Endocrinology Diagnoses Type 2 diabetes mellitus with hyperglycemia, with long-term current use of insulin ([facility]) Sara Zafar NP Phone: tel: fax: [facility] Endocrinology - [address] [address] Phone: tel: fax: Referral ID Status Reason Start Date Expiration Date Visits Requested Visits Authorized [id number] Order Cancelled Specialty Services Required 0 1 1 Encounter Details Date Type Department Care Team (Late st Contact Info) Description 07/01/2020 13:00 EST Nutrition [facility] Endocrinology - [address] CDE [address] [place] [address] [address] [place] [address] Type 2 diabetes mellitus with hyperglycemia, with long-term current use of insulin ([facility]) (Primary Dx) Social History Tobacco Use [...] documented in this encounter Progress Notes * Luciana Sheffield [...] Bran cereal with milk and coffee Lunch: [place] sandwich on whole grain bread Dinner: Chicken, [...] you for your kind referral of Cristy A Valerio for nutrition counseling. Time Spent With Patient: 45 minutes Diagnosis Code: E11.65 LUCILLE Roldan 07/02/2020 11:40 Endocrinology Tracking 07/01/2020 Educator LUCILLE/SAMANTHA Time with Patient(Mins) 45 Patient Contact Type MNT documented in this encounter Plan of Treatment Not on file documented as of this encounter Visit Diagnoses Diagnosis Type 2 diabetes mellitus with hyperglycemia, with long-term current use of insulin ([facility])- Primary documented in this encounter
--- OUTSIDE RECORDS SUMMARY | 2024-05-31 00:42 | XMS_ITS | Encounter Summary ---
Author Organization [facility] Address [address] [place] [address] Care Team Providers Care Journeyman Sheet Metal Worker Name Role Phone Unavailable Primary Care Provider Unavailabl e Reason for Visit * Reason Comments Telemedicine Video Visit Encounter Details Date Type Department Care Team (Late st Contact Info) Description 07/02/2020 11:30 EST Telemedicine [facility] Infectious Disease - [address] [id number] Mushtaq Light, DO [address] [facility], [address] [place] [address] Osteomyelitis of left foot, unspecified [...] documented in this encounter Progress Notes * Mushtaq Light DO - 07/02/2020 1130 EST I spent a [...] Bone biopsy was polymicrobial (MSSA,??GBS,??S.??anginosus, prevotella) and??MRI [id number] distal phalanx osteomyelitis with possible early proximal [...] told years ago ??? Diabetes ([facility]) ? A1c 10.3 on 11/28/2019 ??? [...] FOREIGN BODIES:??None ?? SOCIAL HISTORY:? 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 Attends judaism service: Not on file ? Active member [...] few strep anginosus, moderate prevotella 05/03 covid-19 LOG PREPARER swab: negative 05/04 blood cultures:06/09 bottles growing [...] of left foot, unspecified type ([facility])- Primary documented in this encounter
--- OUTSIDE RECORDS SUMMARY | 2024-05-31 00:42 | XMS_ITS | Encounter Summary ---
Author Organization [facility] Address [address] [place] [address] Care Team Providers Care Doorperson Or Luggage Porter Name Role Phone Unavailable Primary Care Provider Unavailabl e Reason for Referral * Radiology Services (Routine) - Closed Specialty Diagnoses / Procedures Referred By Contac t Referred To Contact Nuclear Medicine Diagnoses Generalized abdominal pain Emesis, persistent Type 2 diabetes mellitus with hyperosmolarity without coma, with long-term current use of insulin ([facility]) Procedures NM GASTRIC EMPTYING SOLID Broderick Irene MD Phone: tel: fax: Referral ID Status Reason Start Date Expiration Date Visits Re quested Visits Authorized [id number] Closed 08/10/2020 1 1 Reason for Visit [...] Expiration Date Visits Re quested Visits Authorized [id number] 1 1 Encounter Details Date Type Department Care Team (Late st Contact Info) Description 08/08/2020 18:57 EST - 08/10/2020 13:56 EST Hospital Encounter [facility] General Medicine Unit [address] [place] [address] Elise Charles MD 111 [facility], Level 1 [place] [address] Keshav Dumont MD [address] [address] Bouchra Costello MD [address] [address] Generalized abdominal pain (Primary Dx); Emesis, persistent; Type 2 diabetes mellitus with hyperosmolarity without coma, with long-term current use of insulin ([facility]); Dehydration; Gastroparesis Discharge Disposition: Home or Self [...] No 08/09/2020 0:58 Niesha eYn RN * Are you blind or do [...] Yen RN documented in this encounter Discharge Summaries * Bouchra Costello [...] LR. There was initially some c/f possible PULLER OVER hematemesis in the ED but pt clarified that while she didhave some e/o pink vomit on 4 days and then again 2 days PULLER OVER, however she had not had any since. [...] Component Value Units Date/Time Bacterial Culture, Blood [[id number]] Collected: 08/08/202058 Lab Status: In process Specimen: Blood, Venous Updated: 08/08/202116 Bacterial Culture, Blood [[id number]] Collected: 08/08/20 2100 Lab Status: In process Specimen: Blood, Venous Updated: 08/08/202116 Upcoming Appointments Aug 12, 2020 10:30 PAT Call with [facility] PAT CALL ROOM 4 [facility] Pre-Surgical Testing (--) [address] [facility]3] [id number] Aug 17, 2020 9:00 Mobile Lab Testing with [facility] Through Testing [facility] JR ALICEA MOBILE ([facility] All Departments) [address] [place] [address] Hat Steamer: Review appointment date and time above. Arrival Instructions: Before I let you go, I need to read you a set of instructions. Please provide me with your full attention. The testing site is located at [address] [place] [address]. When you pull into the entrance stay [...] Follow Up Visit with Sara Zafar APRN [facility] Endocrinology - [facility] (--) [address] [facility] [address] Sep 04, 2020 16:15 (Arrive by 16:00) Post Op Visit with Clarke Joseph MD [facility] Women's Services [facility] (--) [address] [facility] [address] Sep 10, 2020 15:00 Office Visit with Elza Navarro DPM [facility] Foot & Ankle Program - [facility] (--) [address] [facility] [address] Follow-up appointments and procedures Amb Consult/Follow Up [...] Irene DO Internal Medicine PGY-1 Cortext preferred, #[id number] (via PAS) 08/10/20 11:11 Attestation: Pt seen and examined. I have reviewed Dr. Irene's note and agree with his summary asoutlined above. DOS 08/10/2020. Bouchra Costello MD, MPH documented in this encounter Discharge Instructions * Discharge Instr - AVS First Page* Broderick Irene MD - 08/10/2020 8:24 EST Please follow-up with your PCP as soon as able Please follow-up with your switchman We have ordered you a Gastric Emptying [...] any other concerns. Thank you for choosing [facility] for your care! documented in this [...] insurance. Testing QID. 100 Each 5 10/01/2019 1 gabapentin (NEURONTIN) 300 mg capsule Take [...] as needed for Nausea. 15 Tab 08/06/2020 1 nicotine (NICODERM CQ) 7 mg/24 hr [...] this encounter Progress Notes * Peggy Lamas FNP - 08/09/2020 0851 EST Initial Case Management/Social Work Assessment and Discharge Plan/Readmission Risk Assessment REASON FOR ADMISSION: Generalized abdominal pain Patient understands reason for admission: Yes PATIENT INFO VERIFIED: PCP Type of housing (single family, condo, apartment, intermediate, single room occupancy, ESD funded hotel room, group penitentiary) - duplex Who does the patient live with? Spouse and roommate Does the patient have access to their own bedroom/bathroom/kitchen - or is it shared with others? shared Name of housing complex (ex [facility], [facility], etc)- N/A Housing Authority/Managing Organization - N/A Community Care Providers (sample case porter, [facility] nurse, etc) name and contact information- [...] For Finances: No TRANSPORTATION: Transportation: Family CULTURAL, YAZIDI and/or LANGUAGE factors affecting health care/discharge planning: [...] device: None Community Services: Home health, [facility], [facility]-none of one time a week Will you [...] Health Services: None DME Provider: None [id number] - [place], [place] - [address] [facility] [address] [facility] [address] [facility] - [place], [place] - [address] [address] Home Health: not prior to admission Other: none POST HOSPITAL TRANSITION PLAN: Home with support from spouse Pipe Bending Machine Operator spoke to the patient's spouse. No home health needs identified at this time. Her spouse can transport her home when she is medically ready for discharge. PEGGY LAMAS RN CM MSN 08/09/2020 14:44 fresh food manager * Bouchra Costello MD - 08/09/2020 [...] this morning. Tolerated a couple bites of swedish muffin as well as taking liquid PO [...] Temp src Pulse Resp SpO2 Height Weight 08/09/2014 104/63 36.6 ??C (97.9 ??F) Tympanic -- 17 97 % -- -- 08/09/208 -- -- -- -- -- -- 162.6 cm (64) 87 kg (191 lb 12.8 oz) 08/09/2055 123/74 36.6 ??C (97.9 ??F) Tympanic -- [...] -- -- 16 100 % -- -- 08/08/20 190 127/80 -- -- -- 21 -- -- [...] 84 PLT 416* 340 BMP: Recent Labs 08/08/20190608/09/20 0704 NA 136 134* K 3.7 3.4* CL 91* 95* CO2 28 30 BUN 12 -- CREATININE 0.59 0.47* CALCIUM 10.5 -- CALCCA 9.8 -- SERGLU 224* -- Lactic Acid: Recent Labs 08/08/20 2100 LACTICACID 1.2 LFTs: Recent Labs 08/08/201906 ALT 23 AST 29 ALKPHOS 97 TBIL [...] / drinking now - Push PO fluids --[place] 10 QID prn --Zofran 4 mg Q 8 prn - Consider outpatient EGD - Would likely benefit from gastric emptying study however unfortunately they are not offered on the weekends. If she continues to improve at her current rate will likely defer to outpatient. ?? #T2DM: A1c 9.7 07/28/20 --Continue dose reduced glargine 30 (from banquet captain 40) --Hold mealtime insulin while not taking PO --SSI --Gabapentin 100 BID and 300 at bedtime ?? #Anxiety: --banquet captain lorazepam 0.5 mg TID prn Code [...] study Broderick Irene, DO Internal Medicine PGY-1, #1301 08/09/20 9:56 Attestation: Pt seen and examined; I have reviewed Dr. Irene's note and agree with his findings, A and P as outlined above, with my additions in blue. I have personally reviewed the laboratory and radiology results. I have personally spoken with housestaff and Dr. Dumont ([facility]). DOS 08/09/2020. Bouchra Costello MD, MPH [...] Alejandro Chief Complaint: Abdominal Pain HPI Cristy A Young is a 35 y.o. female with a PMHx of T2DM, osteomyelitis s/p left toe amputation inJanuary of 21 and a recent miscarriage who presented to [...] told years ago ??? Depression ??? Diabetes ([facility]) A1c 10.3 on 11/28/2019 - poorly [...] at bedtime. ) ??? lancets [employer] or other brand compatible with lancing device [...] --D5 LR for 1L @ 100 cc/hr --[place] 10 QID prn --Zofran 4 mg Q 8 prn #T2DM: A1c 9.7 07/28/20 --Dose reduce glargine to 30 from banquet captain 40 --Hold mealtime insulin while not taking PO --SSI --Gabapentin 100 BID and 300 at bedtime #Anxiety: --banquet captain lorazepam 0.5 mg TID prn VTE Prophylaxis Pharmacologic Prophylaxis: Enoxaparin (Lovenox) 40 mg SQ daily Code: Full Discharge Plan Uncertain at this time Consults None Admission Status Observation. Anticipated duration of hospitalization is less than two midnights. Mervin Kamara MD 08/09/2020 0:29 Cosigned by Keshav Dumont MD at 08/09/2020 2:47 EST Associated attestation - Keshav Dumont MD - [...] UA consistent with starvation ketosis. Will decrease PULLER OVER insulin. Initially concern for AMS but LP not consistent with infection and patient alert and oriented during my evaluation. Will need to follow up final read imaging studies. Keshav Dumont MD 08/09/2020 2:42 documented in this encounter ED Notes * Fran Ding - 08/08/2020 2301 EST Fran Valenzuela, notified of KETONES 3+ on 08/08/2020 at 23:01. * Elise Charles MD - 08/08/2020 1921 ESTAssociated Order(s): Lumbar Puncture This patient received an evaluation and medical screening exam for emergent medical conditions at the [facility] on 08/08/2020. This note was created and authored by ASUNCION TELLES MD working under the supervision of Elise Charles MD. This documentation is recorded by Lena Echols acting as Scribe under the direction and presence ofElise Charles MD and ASUNCION TELLES MD. Elise Charles MD and ASUNCION TELLES MD: We personally performed the services recorded by [email or web address] in our presence. We confirm the scribe's documentation has been reviewed by us to accuratelyand completely record our work, treatment, procedures, and medical decision making. ED Attending's Supervisory Statement Araceli Valenzuela Katherine W, MD, performed a history and exam of [...] She has had two visits to the [facility] ED prior to today for similar [...] Lumbar Puncture Date/Time: 08/08/2020 22:31 Performed by: Asunicon Telles MD Authorized by: Elise Charles MD Consent: Consent obtained: Verbal Consent given by: Patient Risks discussed: Bleeding, headache, nerve damage, infection, pain and repeat procedure Alternatives discussed: No treatment [place] protocol: Procedure explained and questions answered to [...] for UTI. The patient presents to the [facility] ED endorsing abdominal pain accompanied by nausea w/emesis since early Tuesday morning. Of note, the patient has been evaluated at the [facility] ED twice this week prior to [...] patient's wishes. Admitted * Latasha Kiran - 08/08/2020 190 EST 12 Lead EKG Performed by LATASHA KIRAN and shown to Elise Charles MD. * Olive Echavarria RN - 08/08/2020 1901 EST Per mother, took ativan at 1600. [...] Goal: Care Plan Documentation Flowsheets (Taken 08/10/2020 1219) Area of Focus: Pain/ Comfort Goal This [...] for solid food. References: Manny et al. [place] Journal of Gastroenterology 2000. Kev et al. Gastroenterology 2006 Roshni et al. [place] Journal of Gastroenterology 2006. Narrative 09/09/2020 16:10 [...] Delayed gastric emptying for solid food. References: Toiliana et al. [place] Journal of Gastroenterology 2000. Kev et al. Gastroenterology 2006 Roshni et al. [place] Journal of Gastroenterology 2006. us Broderick Irene MD IMG NM ORDERABLES Final Resul t * ECG REPORT - SCANNED (08/25/2020 13:23 EDT) 08/25/2020 13:2 3 EDT us Scan 2 Injection Molding Engineer PROCEDURE/MINOR SURGICAL OR DERABLES Final Result * (ABNORMAL) POCT GLUCOSE, INTERFACED (08/10/2020 11:56 EST) Glucose, POC 157(H) 70 - 100 mg/dL 08/10/2020 12:01 EST [facility] continuous churn buttermaker ID [id number] 08/10/2020 12:01 EST [facility] HN LAB POC COMMENT (GLUCOSE) Test Performed by Nursing Services 08/10/2020 12:01 EST [facility] Blood CAPILLARY BLOOD / Unknown 08/10/2020 11:56 EST 08/10/2020 12:01 EST us Mervin Kamara MD POINT OF CARE TEST ORDERABLES F inal Result [facility] [address] [place] [address] * (ABNORMAL) POCT GLUCOSE, INTERFACED (08/10/2020 7:13 EST) Glucose, POC 195(H) 70 - 100 mg/dL 08/10/2020 7:15 EST [facility] continuous churn buttermaker ID [id number] 08/10/2020 7:15 EST [facility] HN LAB POC COMMENT (GLUCOSE) Test Performed by Nursing Services 08/10/2020 7:15 EST [facility] Blood CAPILLARY BLOOD / Unknown 08/10/2020 7:13 EST 08/10/2020 7:15 EST Mervin Kamara MD POINT OF CARE TEST ORDERABLES F inal Result [facility] [address] [place] [address] * CREATININE (08/10/2020 6:39 EST) Creatinine 0.60 0.52 - 1.04 mg/dL 08/10/2020 7:52 EST [facility] eGFR 118 >60 mL/min/1.7 3m2 08/10/2020 7:52 EST [facility] Comment:eGFR calculated gil curtis CKD-EPI equation for non- Americans. Multiply eGFR by 1.16 for patients. Blood VENOUS BLOOD / Unknown Venipuncture / Unknown 08/10/2020 6:39 EST 08/10/2020 7:22 EST Mervin Kamara MD CHEMISTRY & BLOOD GAS ORDERABLE S Final Result Performing Organization Address [facility] Co de Phone Number [facility] [address] [place] [address] * ELECTROLYTES (08/10/2020 6:39 EST) Sodium 138 136 - 145 mEq/L 08/10/2020 7:52 EST [facility] Potassium 3.7 3.5 - 5.0 mEq/L 08/10/2020 7:52 EST [facility] Chloride 96 96 - 110 mEq/L 08/10/2020 7:52 [facility] CO2 Total 31 22 - 32 mEq/L 08/10/2020 7:52 EST [facility] Blood VENOUS BLOOD / Unknown Venipuncture / Unknown 08/10/2020 6:39 EST 08/10/2020 7:22 EST Mervin Kamara MD CHEMISTRY & BLOOD GAS ORDERABLE S Final Result [facility] [address] [place] [address] * (ABNORMAL) COMPLETE BLOOD COUNT (08/10/2020 6:39 EST) WBC 10.21 4.00 - 12.40 K/cmm 08/10/2020 7:13 [facility] RBC 4.70 3.86 - 5.04 M/cmm 08/10/2020 7:13 [facility] Hemoglobin 14.6 11.6 - 15.2 gm/dL 08/10/2020 7:13 [facility] HCT 40.3 34.9 - 44.4 % 08/10/2020 7:13 [facility] MCV 86 81 - 98 fl 08/10/2020 7:13 [facility] MCH 31.1 26.7 - 33.3 pg 08/10/2020 7:13 [facility] MCHC 36.2(H) 32.1 - 35.9 gm/dL 08/10/2020 7:13 [facility] RDW-CV 12.0 <14.7 % 08/10/2020 7:13 [facility] RDW-SD 37.5 <50.4 fl 08/10/2020 7:13 [facility] PLT 343 141 - 377 K/cmm 08/10/2020 7:13 [facility] MPV 9.8 9.5 - 12.7 fl 08/10/2020 7:13 [facility] Blood VENOUS BLOOD / Unknown Venipuncture / Unknown 08/10/2020 6:39 EST 08/10/2020 7:00 EST us Mervin Kamara MD HEMATOLOGY & PF4 ORDERABLES Fin al Result [facility] [address] [place] [address] * (ABNORMAL) POCT GLUCOSE, INTERFACED (08/09/2020 20:46 EST) Glucose, POC 218(H) 70 - 100 mg/dL 08/09/2020 20:54 [facility] continuous churn buttermaker ID [id number] 08/09/2020 20:54 [facility] HN LAB POC COMMENT (GLUCOSE) Test Performed by Nursing Services 08/09/2020 20:54 [facility] Blood CAPILLARY BLOOD / Unknown 08/09/2020 20:46 EST 08/09/2020 20:54 EST Mervin Kamara MD POINT OF CARE TEST ORDERABLES F inal Result Performing Organization Address City/[facility]/ZIP Co de Phone Number [facility] [address] [place] [address] * (ABNORMAL) POCT GLUCOSE, INTERFACED (08/09/2020 17:06 EST) Glucose, POC 209(H) 70 - 100 mg/dL 08/09/2020 17:11 [facility] continuous churn buttermaker ID [id number] 08/09/2020 17:11 [facility] HN LAB POC COMMENT (GLUCOSE) Test Performed by Nursing Services 08/09/2020 17:11 [facility] Blood CAPILLARY BLOOD / Unknown 08/09/2020 17:06 EST 08/09/2020 17:10 EST Mervin Kamara MD POINT OF CARE TEST ORDERABLES F inal Result Performing Organization Address City/[facility]/ZIP Co de Phone Number [facility] [address] [place] [address] * (ABNORMAL) POCT GLUCOSE, INTERFACED (08/09/2020 13:22 EST) Glucose, POC 244(H) 70 - 100 mg/dL 08/09/2020 13:24 [facility] continuous churn buttermaker ID [id number] 08/09/2020 13:24 [facility] HN LAB POC COMMENT (GLUCOSE) Test Performed by Nursing Services 08/09/2020 13:24 [facility] Blood CAPILLARY BLOOD / Unknown 08/09/2020 13:22 EST 08/09/2020 13:24 EST us Mervin Kamara MD POINT OF CARE TEST ORDERABLES F inal Result [facility] [address] [place] [address] * (ABNORMAL) POCT GLUCOSE, INTERFACED (08/09/2020 9:23 EST) Glucose, POC 179(H) 70 - 100 mg/dL 08/09/2020 9:24 EST [facility] continuous churn buttermaker ID [id number] 08/09/2020 9:24 EST [facility] HN LAB POC COMMENT (GLUCOSE) Test Performed by Nursing Services 08/09/2020 9:24 EST [facility] Blood CAPILLARY BLOOD / Unknown 08/09/2020 9:23 EST 08/09/2020 9:24 EST us Keshav Dumont MD POINT OF CARE TEST ORDERABL ES Final Result Performing Organization Address [facility] Co de Phone Number [facility] [address] [place] [address] * (ABNORMAL) CREATININE (08/09/2020 7:04 EST) Creatinine 0.47(L) 0.52 - 1.04 mg/dL 08/09/2020 8:32 EST [facility] eGFR 128 >60 mL/min/1.7 3m2 08/09/2020 8:32 EST [facility] Comment:eGFR calculated gil curtis CKD-EPI equation for non- Americans. Multiply eGFR by 1.16 for patients. Blood VENOUS BLOOD / Unknown Venipuncture / Unknown 08/09/2020 7:04 EST 08/09/2020 7:58 EST us Mervin Kamara MD CHEMISTRY & BLOOD GAS ORDERABLE S Final Result Performing Organization Address City/[facility]/ZIP Co de Phone Number [facility] [address] [place] [address] * (ABNORMAL) ELECTROLYTES (08/09/2020 7:04 EST) Sodium 134(L) 136 - 145 mEq/L 08/09/2020 8:32 [facility] Potassium 3.4(L) 3.5 - 5.0 mEq/L 08/09/2020 8:32 [facility] Chloride 95(L) 96 - 110 mEq/L 08/09/2020 8:32 [facility] CO2 Total 30 22 - 32 mEq/L 08/09/2020 8:32 [facility] Blood VENOUS BLOOD / Unknown Venipuncture / Unknown 08/09/2020 7:04 EST 08/09/2020 7:58 EST us Mervin Kamara MD CHEMISTRY & BLOOD GAS ORDERABLE S Final Result Performing Organization Address City/State/[facility] Co de Phone Number [facility] [address] [place] [address] * (ABNORMAL) COMPLETE BLOOD COUNT (08/09/2020 7:04 EST) WBC 11.82 4.00 - 12.40 K/cmm 08/09/2020 7:42 [facility] RBC 4.31 3.86 - 5.04 M/cmm 08/09/2020 7:42 [facility] Hemoglobin 13.3 11.6 - 15.2 gm/dL 08/09/2020 7:42 [facility] HCT 36.3 34.9 - 44.4 % 08/09/2020 7:42 [facility] MCV 84 81 - 98 fl 08/09/2020 7:42 [facility] MCH 30.9 26.7 - 33.3 pg 08/09/2020 7:42 [facility] MCHC 36.6(H) 32.1 - 35.9 gm/dL 08/09/2020 7:42 [facility] RDW-CV 11.9 <14.7 % 08/09/2020 7:42 [facility] RDW-SD 36.4 <50.4 fl 08/09/2020 7:42 [facility] PLT 340 141 - 377 K/cmm 08/09/2020 7:42 [facility] MPV 9.7 9.5 - 12.7 fl 08/09/2020 7:42 [facility] Blood VENOUS BLOOD / Unknown Venipuncture / Unknown 08/09/2020 7:04 EST 08/09/2020 7:29 EST us Mervin Kamara MD HEMATOLOGY & PF4 ORDERABLES Fin al Result Performing Organization Address City/[facility]/ZIP Co de Phone Number [facility] [address] [place] [address] * (ABNORMAL) POCT GLUCOSE, INTERFACED (08/09/2020 4:21 EST) Glucose, POC 219(H) 70 - 100 mg/dL 08/09/2020 7:22 [facility] continuous churn buttermaker ID [id number] 08/09/2020 7:22 [facility] HN LAB POC COMMENT (GLUCOSE) Test Performed by Nursing Services 08/09/2020 7:22 [facility] Blood CAPILLARY BLOOD / Unknown 08/09/2020 4:21 EST 08/09/2020 7:22 EST us Keshav Dumont MD POINT OF CARE TEST ORDERABL ES Final Result Performing Organization Address City/[facility]/ZIP Co de Phone Number [facility] [address] [place] [address] * (ABNORMAL) POCT GLUCOSE, INTERFACED (08/09/2020 1:47 EST) Glucose, POC 173(H) 70 - 100 mg/dL 08/09/2020 7:16 [facility] continuous churn buttermaker ID [id number] 08/09/2020 7:16 [facility] HN LAB POC COMMENT (GLUCOSE) Test Performed by Nursing Services 08/09/2020 7:16 [facility] Blood CAPILLARY BLOOD / Unknown 08/09/2020 1:47 EST 08/09/2020 7:16 EST Mervin Kamara MD POINT OF CARE TEST ORDERABLES F inal Result Performing Organization Address City/[facility]/ZIP Co de Phone Number [facility] [address] [place] [address] * HN LAB CELL COUNT, CSF (08/08/2020 23:12 EST) RBC, CSF <1 /cmm 08/08/2020 23:43 EST [facility] Nucleated Cells, CSF <1 0 - 5 /cmm 08/08/2020 23:43 [facility] Total Volume CSF 4.8 ml 08/08/2020 23:43 [facility] Tube Cntd. 4 08/08/2020 23:43 [facility] Comment, CSF Clear and colorless 08/08/2020 23:43 [facility] Tube Vol. 1.2 ml 08/08/2020 23:43 [facility] Fluid CEREBROSPINAL FLUID SPECIMEN / Unknown 08/08/2020 23:12 EST 08/08/2020 23:22 EST Elise Charles MD HEMATOLOGY & PF4 ORDERABLE S Final Result Performing Organization Address City/[facility]/ZIP Co de Phone Number [facility] [address] [place] [address] * BACTERIAL CULTURE/SMEAR (08/08/2020 23:12 EST) Organism ID No Growth 08/10/2020 8:49 EST [facility] Smear No Neutrophils Seen 08/10/2020 8:49 EST [facility] Smear No bacteria seen 08/10/2020 8:49 EST [facility] Fluid CEREBROSPINAL FLUID SPECIMEN / Unknown 08/08/2020 23:12 EST 08/08/2020 23:22 EST us Elise Charles MD MICROBIOLOGY - GENERAL ORD ERABLES Final Result [facility] [address] [place] [address] * (ABNORMAL) TOTAL PROTEIN, CSF (08/08/2020 23:12 EST) Total Protein, CSF 55(H) 12 - 45 mg/dL 08/09/2020 0:00 EST [facility] Fluid CEREBROSPINAL FLUID SPECIMEN / Unknown 08/08/2020 23:12 EST 08/08/2020 23:22 EST us Elise Charles MD GEN LAB UNIT COLLECT ORDER HAILEY Final Result Performing Organization Address City/[facility]/ZIP Co de Phone Number [facility] [address] [place] [address] * GLUCOSE CSF (08/08/2020 23:12 EST) Glucose, CSF 126 See Note mg/dL 08/09/2020 0:00 EST [facility] Comment: NOTE: Reference range for Glucose in CSF: 60% - 80% of the Serum/Plasma Glucose Fluid CEREBROSPINAL FLUID SPECIMEN / Unknown 08/08/2020 23:12 EST 08/08/2020 23:22 EST Elise Charles MD GEN LAB UNIT COLLECT ORDER HAILEY Final Result Performing Organization Address City/[facility]/ZIP Co de Phone Number [facility] [address] [place] [address] * CELL COUNT TUBE 1, CSF - RBC ONLY, INDICATED FOR A BLOODY TAP (08/08/2020 23:12 EST) RBC, CSF Tube#1 <1 /cmm 08/08/2020 23:43 EST [facility] Specimen Volume 1.2 ml 08/08/2020 23:43 EST [facility] Fluid CEREBROSPINAL FLUID SPECIMEN / Unknown 08/08/2020 23:12 EST 08/08/2020 23:22 EST us Elise Charles MD GEN LAB UNIT COLLECT ORDER HAILEY Final Result Performing Organization Address [facility] Co de Phone Number [facility] [address] [place] [address] * TEST, URINE (08/08/2020 22:32 EST) Test, Urine Negative Negative 08/09/2020 1:36 [facility] Comment:False negative resul ts may occur in women who are beyond 5-8 weeks gestation. Diagnosis of should be based on a correlation of test results with typical clinical signs and symptoms. Urine URINE SPECIMEN COLLECTION, CLEAN CATCH / Unknown Urine Collect / Unknown 08/08/2020 22:32 EST 08/08/2020 22:34 EST us Keshav Dumont MD URINALYSIS ORDERABLES Final Result Performing Organization Address [facility] de Phone Number [facility] [address] [place] [address] * (ABNORMAL) URINE CHEMICAL (DIP) & SEDIMENT (MICRO) WITH REFLEX TO CULTURE (08/08/2020 22:32 EST) Color UA Yellow Colorless, Yellow 08/08/2020 23:01 [facility] Clarity UA Hazy(A) Clear 08/08/2020 23:01 [facility] Glucose UA Trace(A) Negative 08/08/2020 23:01 [facility] Bilirubin UA Negative Negative 08/08/2020 23:01 [facility] Ketones UA 3+(AA) Negative 08/08/2020 23:01 [facility] Specific [place], Urine 1.024 1.001 - 1.035 08/08/2020 23:01 [facility] Blood UA Negative Negative 08/08/2020 23:01 [facility] Urobilinogen UA 4(A) Normal mg/dL 08/08/2020 23:01 [facility] Nitrite UA Negative Negative 08/08/2020 23:01 [facility] Leukocyte Esterase UA Negative Negative 08/08/2020 23:01 [facility] Protein UA 1+(A) Negative 08/08/2020 23:01 [facility] pH, UA 7.5 4.6 - 8.0 08/08/2020 23:01 [facility] Urine RBC Count, Auto 0 - 2 0 - 2 Cells/HPF 08/08/2020 23:01 [facility] Urine WBC Count, Auto 0 - 3 0 - 3 Cells/HPF 08/08/2020 23:01 [facility] Urine Squamous Count, Auto Moderate(A) None Seen Cells/HPF 08/08/2020 23:01 [facility] Urine Hyaline Cast Count, Auto <=10 <=10 Casts/LPF 08/08/2020 23:01 [facility] Urine Bacteria Count, Auto None Seen None Seen Bacteria/HP F 08/08/2020 23:01 [facility] Urine Crystals Amorphous Phosphates Present(A) None Seen 08/08/2020 23:01 [facility] Urine URINE SPECIMEN COLLECTION, CLEAN CATCH / Unknown Urine Collect / Unknown 08/08/2020 22:32 EST 08/08/2020 22:34 EST Narrative [facility] - 08/08/2020 23:01 EST NOTE: Reflex to Urine Culture test is not indicated based on Urine Sediment Analysis results. Urine Sediment Analysis results are unreliable on urines that are unrefrigerated for >2 hrs or refrigerated >8 hrs. us Asuncion Telles MD URINALYSIS ORDERABLES Final Res ult [facility] [address] [place] [address] * CT HEAD WO CONTRAST (08/08/2020 21:15 [...] above interpretation andagree with the findings. us Asuncion Telles MD IMG CT ORDERABLES Final Result * COVID-19 TEST [facility] PCR (08/08/2020 21:00 EST) Swab ENTIRE NASOPHARYNX / Unknown Swab / Unknown 08/08/2020 21:00 EST 08/08/2020 21:04 EST us Asuncion Telles MD MICROBIOLOGY - GENERAL ORDERABL ES Final Result [facility] [address] [place] [address] [place] [address] * COVID-19 TESTING (08/08/2020 21:00 EST) COVID-19 rt-PCR Result Negative Negative 08/08/2020 23:52 EST [facility] Comment: This test [...] history, and epidemiological information. Performed on the [employer] Fusion instrument Performing Lab [facility] 08/08/2020 23:52 EST [facility] Swab ENTIRE NASOPHARYNX / Unknown Swab / Unknown 08/08/2020 21:00 EST 08/08/2020 21:04 EST Asuncion Telles MD MICROBIOLOGY - GENERAL ORDERABL ES Final Result Performing Organization Address City/[facility] Co de Phone Number [facility] [address] [place] [address] * LACTIC ACID (08/08/2020 21:00 EST) Lactic Acid 1.2 <=2.0 mmol/L 08/08/2020 21:17 EST [facility] Blood VENOUS BLOOD / Unknown Venipuncture / Unknown 08/08/2020 21:00 EST 08/08/2020 21:05 EST us Asuncion Telles MD CHEMISTRY & BLOOD GAS ORDERABLE S Final Result [facility] [address] [place] [address] * BACTERIAL CULTURE, BLOOD (08/08/2020 21:00 EST) Organism ID No Growth at 5 days 08/13/2020 21:30 EST [facility] Blood VENOUS BLOOD / Unknown Blood Culture / Unknown 08/08/2020 21:00 EST 08/08/2020 21:17 EST Asuncion Telles MD MICROBIOLOGY - GENERAL ORDERABL ES Final Result Performing Organization Address [facility] Co de Phone Number [facility] [address] [place] [address] * BACTERIAL CULTURE, BLOOD (08/08/2020 20:59 EST) Organism ID No Growth at 5 days 08/13/2020 21:30 EST [facility] Blood VENOUS BLOOD / Unknown Blood Culture / Unknown 08/08/2020 20:59 EST 08/08/2020 21:17 EST Asuncion Telles MD MICROBIOLOGY - GENERAL ORDERABL ES Final Result Performing Organization Address [facility] de Phone Number [facility] [address] [place] [address] * ED LUMBAR PUNCTURE BEDSIDE OR CLINIC PERFORMED (08/08/2020 19:21 EST) Narrative [facility] - 08/08/2020 19:21 EST Elise Charles MD ? 08/09/2020 ??9:40 Lumbar Puncture Date/Time: 08/08/2020 22:31 Performed by: Asuncion Telles MD Authorized by: Elise Charles MD Consent: ??Consent obtained: ??Verbal ??Consent given by: ??Patient ??Risks discussed: ??Bleeding, headache, nerve damage, infection, pain and repeat procedure ??Alternatives discussed: ??No treatment [place] protocol: ??Procedure explained and questions answered to [...] bedside for the entirety of the procedure. us Elise Charles MD PROCEDURE/MINOR SURGICAL O RDERABLES Final Result Performing Organization Address [facility]/ZIP Co de Phone Number [facility] * C REACTIVE PROTEIN (08/08/2020 19:07 EST) C-Reactive Protein <7.0 <10.0 mg/L 08/08/2020 21:11 EST [facility] Blood VENOUS BLOOD / Unknown Venipuncture / Unknown 08/08/2020 19:07 EST 08/08/2020 19:12 EST us Asuncion Telles MD CHEMISTRY & BLOOD GAS ORDERABLE S Final Result Performing Organization Address [facility]/ZIP Co de Phone Number [facility] [address] [place] [address] * SED. RATE:WESTERGREN (08/08/2020 19:07 EST) Pathologist [facility] Sed Rate 12 0 - 20 mm/hr 08/08/2020 21:15 EST [facility] Blood VENOUS BLOOD / Unknown Venipuncture / Unknown 08/08/2020 19:07 EST 08/08/2020 19:12 EST Asuncion Telles MD HEMATOLOGY & PF4 ORDERABLES Fin al Result Performing Organization Address City/[facility]/ZIP Co de Phone Number [facility] [address] [place] [address] * (ABNORMAL) BETA HYDROXYBUTYRATE (08/08/2020 19:07 EST) [facility] Beta Hydroxybutyrate 2.7(H) <0.4 mmol/L 08/08/2020 20:43 EST [facility] Blood VENOUS BLOOD / Unknown Venipuncture / Unknown 08/08/2020 19:07 EST 08/08/2020 19:12 EST Elise Charles MD CHEMISTRY & BLOOD GAS CLEMENTE GOLDEN Final Result Performing Organization Address [facility]/ZIP Co de Phone Number [facility] [address] [place] [address] * LIPASE (08/08/2020 19:07 EST) Pathologist [facility] Lipase 194 <251 U/L 08/08/2020 19:35 EST [facility] Blood VENOUS BLOOD / Unknown Venipuncture / Unknown 08/08/2020 19:07 EST 08/08/2020 19:12 EST us Asuncion Telles MD CHEMISTRY & BLOOD GAS ORDERABLE S Final Result Performing Organization Address [facility] Co de Phone Number [facility] [address] [place] [address] * (ABNORMAL) COMPREHENSIVE METABOLIC PANEL (CMP) (08/08/2020 19:07 EST) Pathologist [facility] Sodium 136 136 - 145 mEq/L 08/08/2020 19:38 [facility] Potassium 3.7 3.5 - 5.0 mEq/L 08/08/2020 19:38 [facility] Comment: NOTE: Interpret with caution. Prolonged sample storage may alter the result. Chloride 91(L) 96 - 110 mEq/L 08/08/2020 19:38 [facility] CO2 Total 28 22 - 32 mEq/L 08/08/2020 19:38 [facility] Comment: NOTE: Interpret with caution. Prolonged sample storage may alter the result. Glucose 224(H) 70 - 100 mg/dL 08/08/2020 19:38 [facility] BUN 12 10 - 26 mg/dL 08/08/2020 19:38 [facility] Creatinine 0.59 0.52 - 1.04 mg/dL 08/08/2020 19:38 [facility] eGFR 119 >60 mL/min/1.7 3m2 08/08/2020 19:38 [facility] Comment:eGFR calculated gil curtis CKD-EPI equation for non- Americans. Multiply eGFR by 1.16 for patients. Total Protein 7.8 6.3 - 8.2 g/dL 08/08/2020 19:38 [facility] Albumin 4.9 3.4 - 4.9 g/dL 08/08/2020 19:38 [facility] Alkaline Phosphatase 97 38 - 126 U/L 08/08/2020 19:38 [facility] AST 29 15 - 46 U/L 08/08/2020 19:38 [facility] ALT 23 <35 U/L 08/08/2020 19:38 [facility] Bilirubin, Total 1.0 <1.4 mg/dL 08/09/19 19:38 [facility] Calcium 10.5 8.5 - 10.5 mg/dL 08/08/2020 19:38 [facility] Calculated Calcium 9.8 8.5 - 10.5 mg/dL 08/08/2020 19:38 [facility] Blood VENOUS BLOOD / Unknown Venipuncture / Unknown 08/08/2020 19:07 EST 08/08/2020 19:12 EST us Asuncion Telles MD CHEMISTRY & BLOOD GAS ORDERABLE S Final Result [facility] [address] [place] [address] * (ABNORMAL) COMPLETE BLOOD COUNT AND DIFFERENTIAL (08/08/2020 19:07 EST) WBC 16.16(H) 4.00 - 12.40 K/cmm 08/08/2020 19:33 [facility] RBC 4.94 3.86 - 5.04 M/cmm 08/08/2020 19:33 [facility] Hemoglobin 15.3(H) 11.6 - 15.2 gm/dL 08/08/2020 19:33 [facility] HCT 41.4 34.9 - 44.4 % 08/08/2020 19:33 [facility] MCV 84 81 - 98 fl 08/08/2020 19:33 [facility] MCH 31.0 26.7 - 33.3 pg 08/08/2020 19:33 [facility] MCHC 37.0(H) 32.1 - 35.9 gm/dL 08/08/2020 19:33 [facility] RDW-CV 11.9 <14.7 % 08/08/2020 19:33 [facility] RDW-SD 36.2 <50.4 fl 08/08/2020 19:33 [facility] PLT 416(H) 141 - 377 K/cmm 08/08/2020 19:33 [facility] MPV 9.7 9.5 - 12.7 fl 08/08/2020 19:33 [facility] % Neutrophils 65.9 % 08/08/2020 19:33 [facility] % Lymphocytes 25.0 % 08/08/2020 19:33 [facility] % Monocytes 8.1 % 08/08/2020 19:33 [facility] % Eosinophils 0.4 % 08/08/2020 19:33 [facility] % Basophils 0.4 % 08/08/2020 19:33 [facility] % Immature Grans 0.2 % 08/09/19 19:33 [facility] Absolute Neutrophils 10.63(H) 2.20 - 8.85 K/cmm 08/08/2020 19:33 [facility] Absolute Lymphocytes 4.04(H) 1.09 - 3.30 K/cmm 08/08/2020 19:33 [facility] Absolute Monocytes 1.31(H) 0.10 - 0.80 K/cmm 08/08/2020 19:33 [facility] Absolute Eosinophils 0.07 0.03 - 0.61 K/cmm 08/08/2020 19:33 [facility] ABS Basophils 0.07 0.01 - 0.11 K/cmm 08/08/2020 19:33 [facility] Absolute Immature Grans 0.04 0.00 - 0.06 K/cmm 08/08/2020 19:33 [facility] Type of Differential: Auto 08/08/2020 19:33 [facility] Blood VENOUS BLOOD / Unknown Venipuncture / Unknown 08/08/2020 19:07 EST 08/08/2020 19:12 EST us Asuncion Telles MD PACKAGES & DNA PROBE ORDERABLES Final Result [facility] [address] [place] [address] * HOLD SST (08/08/2020 19:07 EST) Hold Hold 08/08/2020 20:15 [facility] Blood VENOUS BLOOD / Unknown Venipuncture / Unknown 08/08/2020 19:07 EST 08/08/2020 19:12 EST us Elise Charles MD LAB INFO SERVICE AND SUPPO RT & PHONE RESULT Final Result [facility] [address] [place] [address] * HOLD LAVENDER TOP (08/08/2020 19:07 EST) Hold Hold 08/08/2020 20:15 EST [facility] Blood VENOUS BLOOD / Unknown Venipuncture / Unknown 08/08/2020 19:07 EST 08/08/2020 19:12 EST us Elise Charles MD LAB INFO SERVICE AND SUPPO RT & PHONE RESULT Final Result [facility] [address] [place] [address] * HOLD GREEN TOP (08/08/2020 19:07 EST) Hold Hold 08/08/2020 20:15 EST [facility] Blood VENOUS BLOOD / Unknown Venipuncture / Unknown 08/08/2020 19:07 EST 08/08/2020 19:12 EST us Elise Charles MD LAB INFO SERVICE AND SUPPO RT & PHONE RESULT Final Result [facility] [address] [place] [address] * HOLD BLUE TOP (08/08/2020 19:07 EST) Hold Hold 08/08/2020 20:15 EST [facility] Blood VENOUS BLOOD / Unknown Venipuncture / Unknown 08/08/2020 19:07 EST 08/08/2020 19:12 EST us Elise Charles MD LAB INFO SERVICE AND SUPPO RT & PHONE RESULT Final Result [facility] [address] [place] [address] * EKG 12-LEAD (08/08/2020 19:04 EST) 08/08/2020 19:0 4 EST Narrative [facility] - 08/25/2020 13:16 EDT ?[facility] ? Test Date: ?2020-08-08 Pat Name: ? CRISTY LUO ?Department: ?? ED ? Room: ? AC14 Gender: ? Female ? Lab Animal Technician: ?? [id number] : ?1985 ? Requested By: SUSANNE Huizar Order Number: [id number] ? Sammie MD: ?? CINDY GARCIA MD ? Measurements Intervals ?[place] ? Rate: ? 86 ? P: ?65 [place]: ? 139 ?QRS: ?48 QRSD: ? 93 [...] Note Cindy Garcia MD - 08/25/2020 [facility] Test Date: 2020-08-08 Pat Name: CRISTY LUO Department: ED Room: 14 Gender: Female Lab Animal Technician: [id number] : 1985 Requested By: SUSANNE Huizar Order Number: [id number] Sammie MD: CINDY GARCIA MD Measurements Intervals [place] Rate: 86 P: 65 [place]: 139 QRS: 48 QRSD: 93 T: 20 [...] On 08-25-2020 13:16:31 EDT by CINDY ODELL. us Alessandro Delgadillo MD CARDIAC ECG ORDERABLES Final R esult [facility] * (ABNORMAL) POCT GLUCOSE, INTERFACED (08/08/2020 18:54 EST) Glucose, POC 213(H) 70 - 100 mg/dL 08/08/2020 18:55 EST [facility] continuous churn buttermaker ID [id number] 08/08/2020 18:55 EST [facility] HN LAB POC COMMENT (GLUCOSE) Test Performed by Nursing Services 08/08/2020 18:55 EST [facility] Blood CAPILLARY BLOOD / Unknown 08/08/2020 18:54 EST 08/08/2020 18:55 EST us Provider Joe MARTÍNEZ POINT OF CARE TEST ORDERABLE S Final Result Performing Organization Address City/[facility]/ZIP Co de Phone Number [facility] [address] [place] [phone] documented in this encounter Visit Diagnoses Diagnosis Generalized abdominal pain- Primary Abdominal pain, generalized Generalized abdominal pain Abdominal pain, generalized Emesis, persistent Persistent vomiting Type 2 diabetes mellitus with hyperosmolarity without coma, with long-term current use of insulin ([facility]) Dehydration Gastroparesis Abdominal pain Abdominal pain, unspecified site Emesis, persistent Persistent vomiting Dehydration Gastroparesis Generalized abdominal pain Abdominal pain, generalized Emesis, persistent Persistent vomiting Type 2 diabetes mellitus with hyperosmolarity without coma, with long-term current use of insulin ([facility]) documented in this encounter Administered Medications [...] WITH BREAKFAST & LUNCH, First dose on Tue08/09/20 at 0800, Until Discontinued, Routine Given 08/10/2020 12:01 EST 100 mg Given 08/10/2020 7:37 EST 100 mg Given 08/09/2020 13:33 EST 100 mg gabapentin (NEURONTIN) capsule 300 mg 300 mg, oral, AT BEDTIME, First dose on Tue08/09/20 at 0200, Until Discontinued, Routine Given 08/09/2020 [...] at 0230, Until Discontinued, Routine, Indications: SUPPLEMENTAL INSULINIndications:SUPPLEMENTAL INSULIN Given 08/09/2020 4:23 EST 5 Units [...] intravenous, 2 TIMES DAILY, First dose on Tue08/09/20 at 0300, Until Discontinued, Routine Given 08/10/2020 [...] mg, oral, AT BEDTIME, First dose on Tue08/09/20 at 0200, Until Discontinued, Routine 0153 (Given [...] - Provider: Jayne Perera RN - Comment: [phone] (Not Given - Provider: Vinicius Blood RN - Reason: Discontinued) insulin aspart U-100 (NOVOLOG FLEXPEN) injection subcutaneous, 3 TIMES DAILY WITH MEALS, First dose on 08/09/20 at 0800, Until Discontinued, Routine 0941 (Given - Provider: Vinicius Blood RN)1240 (Given - Provider: Vinicius Blood RN - Comment: [phone] glucose)1717 (Given - Provider: Eryn Goss, MARCELO) 0729 (Given - Provider: Fawn Sheth RN)1201 (Given - Provider: Fawn Sheth RN) insulin glargine (LANTUS SOLOSTAR) injection pen 30 Units 30 Units, subcutaneous, ONCE DAILY L.A. INSULIN, First dose (after last modification) on Tue08/10/20 at 0900, Until Discontinued, Routine 0855 (Given - Provider: Fawn Sheth RN) lactated ringers BOLUS 1,000 mL (COMPLETED) 1,000 mL, intravenous, NOW X1, 1 dose, On Tue08/08/20 at 1930, STAT 1922 (New Bag - Provider: Kayleigh Bernal RN)2230 (Completed - Provider: Kayleigh Bernal RN) LORazepam (ATIVAN) injection 1 mg (COMPLETED) 1 mg, intravenous, NOW X1, 1 dose, On Tue08/08/20 at 2200, STAT 2243 (Given - Provider: Kayleigh Bernal RN) metoclopramide (REGLAN) injection 10 mg (COMPLETED) 10 mg, intravenous, NOW X1, 1 dose, On Tue08/08/20 at 1930, STAT 1922 (Given - Provider: Kayleigh Bernal RN) ondansetron (PF) (ZOFRAN) injection 4 mg (COMPLETED) 4 mg, intravenous, NOW X1, 1 dose, On Tue08/08/20 at 2200, STAT 2200 (Given - Provider: Kayleigh Bernal RN) pantoprazole (PROTONIX) injection 40 mg 40 mg, intravenous, 2 TIMES DAILY, First dose on Tue08/09/20 at 0300, Until Discontinued, Routine 0422 (Given - Provider: Jayne Perera RN)0900 (Canceled Entry - Provider: Rivera Kerr [facility])2100 (Not Given - Provider: Eryn Goss [...] Anxiety, Routine 1528 (Given - Provider: Eryn Goss RN)2030 (Given - Provider: Eryn Goss RN) metoclopramide HCl (REGLAN) tablet 10 mg [...]
--- OUTSIDE RECORDS SUMMARY | 2024-05-31 00:42 | XMS_ITS | Encounter Summary ---
Author Organization [facility] Address [address] [place] [address] Care Team Providers Care Applied Psychology Professor Name Role Phone Unavailable Primary Care Provider Unavailabl e Reason for Visit * Reason Onset Date Comments Advice Only 08/07/2020 Encounter Details Date Type Department Care Team (Late st Contact Info) Description 08/07/[address] [facility] Endocrinology - [facility] [address] [place] [address] Sara Zafar NP [address] [facility] [address] [place] [address] Advice Only Social History Tobacco [...] to the provider regarding patients insulin. Asked race and sports book writer to zandra High Priority. PCP paged Sara Zafar thru [facility] with no response documented in this encounter Plan of Treatment Not on file documented as of this encounter Visit Diagnoses Not on filedocumented in this encounter
--- OUTSIDE RECORDS SUMMARY | 2024-05-31 00:42 | XMS_ITS | Encounter Summary ---
Author Organization [facility] Address [address] [place] [address] Care Team Providers Care Print Production Associate Name Role Phone Unavailable Primary Care Provider Unavailabl e Reason for Visit * Reason Onset Date Comments Follow-up 06/27/2020 Encounter Details Date Type Department Care Team (Late st Contact Info) Description 06/27/2020 Telephone [facility] OBGYN Services - [facility] [address] [place] [address] Susana Tomlinson, RN Follow-up Social History Tobacco [...]
--- OUTSIDE RECORDS SUMMARY | 2024-05-31 00:42 | XMS_ITS | Encounter Summary ---
Author Organization [facility] Address [address] [place] [address] Care Team Providers Care Christmas Tree Grower Name Role Phone Unavailable Primary Care Provider Unavailabl e Reason for Visit * Reason Onset Date Comments Surgery Scheduling 06/30/2020 Encounter Details Date Type Department Care Team (Late st Contact Info) Description 06/30/2020 Telephone [facility] OBGYN Services - [address] [id number] Charu Flynn MD [address] [facility], [address] [place] [address] Surgery Scheduling Social History Tobacco [...] Telephone Encounter - Mere Hanna - 06/30/2020 4526 EST Called pt and scheduled surgery for [...]
--- OUTSIDE RECORDS SUMMARY | 2024-05-31 00:42 | XMS_ITS | Encounter Summary ---
Author Organization [facility] Address [address] [place] [address] Care Team Providers Care Scientific Associate Name Role Phone Unavailable Primary Care Provider Unavailabl e Reason for Visit * Reason Comments Follow-up Encounter Details Date Type Department Care Team (Latest Contact Info) Description 08/01/2020 15:00 EST Office Visit [facility] Adult Primary Care - [address] [id number] Tonja Alejandro PA-C [address] [place] [address] [place] [phone] Musculoskeletal pain (Primary Dx); Type 2 diabetes mellitus with hyperosmolarity without coma, with long-term current use of insulin ([facility]); Neuropathy; Depression, unspecified depression type; Chronic [...] Sylvia Alejandro RN documented in this encounter Ordered Prescriptions Prescription Sig Dispense Quantity Refills Last Filled Start Date End Date TENS unit and electrodes combo pack 1 [...] miscarriage. She has been following up with DRUM PRINTER and is ultimately scheduled for hysterectomy. This [...] healthy eating -Continue to follow-up with a manager training and development History of multiple miscarriages -Continue follow-up with MEDICAL PHYSICS PROFESSOR -Plan for hysterectomy next month Left toe [...] patient is interested in seeing a social media editor. Will order this. Chronic back pain -Start with x-rays of thoracic and lumbar spine. -Consider MRI of thoracic spine/lumbar spine due to radicular pain Will call patient on Tuesday for further insulin instructions. Tonja [facility]-C [facility] 16:34 I spent a total [...] coma, with long-term current use of insulin ([facility]) Neuropathy Mononeuritis of unspecified site Depression, [...]
--- OUTSIDE RECORDS SUMMARY | 2024-05-31 00:42 | XMS_ITS | Encounter Summary ---
Author Organization [facility] Address [address] [place] [address] Care Team Providers Care Rose Grader Name Role Phone Unavailable Primary Care Provider Unavailabl e Reason for Visit * Reason Comments Emesis Seen tuesday for n/v/ d back tonight for continued n/v/d, her pcp recommended she come in for reeval and possible scan. Pt reports diffuse abdominal pain. Encounter Details Date Type Department Care Team (Late st Contact Info) Description 08/06/2020 3:57 EST - 08/06/2020 8:59 EST Emergency [facility] Emergency Department - [facility] [address] [place] [address] Kylah Whitaker PA-C [address] [facility], [address] [place] [phone] Jeremiah Hein PA-C [address] [place] [phone] Non-intractable vomiting with nausea, unspecified vomiting type [...] Sylvia Alejandro RN documented in this encounter Discharge Instructions [...] through Care Everywhere. * Nausea and Vomiting ([place]) documented in this encounter Medications at Time [...] patient's insurance. 100 Each 5 10/01/2019 1 metoclopramide HCl (REGLAN) 10 mg tablet [...] Comment s Home or Self Senior Care driving. documented in this encounter ED Notes [...] Abnormality Status --------- ------ POCT URINE DIPSTICK, CLI...[[id number]] POCT CSN BARCODE URINE D...[[id number]] Please view results for these tests on the individual orders. POCT TEST, CLINITEK ORDER Narrative: The following orders were created for panel order POCT TEST, CLINITEK ORDER. Procedure Abnormality Status --------- ------ POCT TEST, CLI...[[id number]] POCT CSN BARCODE URINE P...[[id number]] Please view results for these tests on [...] results. * Angelica Stone RN - 08/06/2020 0729 EST I assumed care of pt at this time, the pt is sleeping. Visitor at the bedside. * Mignon Young RN - 08/06/2020 0658 EST Report given MARCELO Dominguez * Kylah Whitaker PA-C - 08/06/2020 0443 EST This patient received an evaluation and medical screening exam for emergent medical conditions at the [facility] on 08/06/2020 Scribe attestation: This documentation [...] The patient was signed out to AM PA-C with PO challenge and CT pending. Please [...] Garcia was available for supervision. * Nanda Gibson, MARCELO - 08/06/2020 0442 EST Pt w ongoing [...] No acute fracture or suspicious osseous lesion. Commercial Collections Driver: No additional pathology identified. Procedure Note Broderick [...] No acute fracture or suspicious osseous lesion. Commercial Collections Driver: No additional pathology identified. IMPRESSION 1. No acute abnormality identified in the abdomen or pelvis. 2. Small nonobstructing left intrarenal calculus. 3. Small hiatal hernia. I have personally reviewed the images and the above interpretation andagree with the findings. Kylah DAWSON-Shiva IMG CT ORDERABLES Final Result * LACTIC ACID (08/06/2020 5:06 EST) Lactic Acid 1.5 <=2.0 mmol/L 08/06/2020 5:29 EST [facility] Blood VENOUS BLOOD / Unknown Venipuncture / Unknown 08/06/2020 5:06 EST 08/06/2020 5:17 EST Kylah DAWSON-C CHEMISTRY & BLOOD GAS ORDERABLES Final Result Performing Organization Address [facility] Co de Phone Number [facility] [address] [place] [address] * LIPASE (08/06/2020 4:13 EST) Lipase 141 <251 U/L 08/06/2020 5:00 EST [facility] Blood VENOUS BLOOD / Unknown Venipuncture / Unknown 08/06/2020 4:13 EST 08/06/2020 4:19 EST Kylah DAWSON-C CHEMISTRY & BLOOD GAS ORDERABLES Final Result Performing Organization Address City/[facility] Co de Phone Number [facility] [address] [place] [address] * (ABNORMAL) COMPREHENSIVE METABOLIC PANEL (CMP) (08/06/2020 4:13 EST) Sodium 139 136 - 145 mEq/L 08/06/2020 5:00 [facility] Potassium 3.4(L) 3.5 - 5.0 mEq/L 08/06/2020 5:00 [facility] Comment: NOTE: Interpret with caution. Prolonged sample storage may alter the result. Chloride 99 96 - 110 mEq/L 08/06/2020 5:00 [facility] CO2 Total 25 22 - 32 mEq/L 08/06/2020 5:00 [facility] Comment: NOTE: Interpret with caution. Prolonged sample storage may alter the result. Glucose 255(H) 70 - 100 mg/dL 08/06/2020 5:00 [facility] BUN 12 10 - 26 mg/dL 08/06/2020 5:00 [facility] Creatinine 0.52 0.52 - 1.04 mg/dL 08/06/2020 5:00 [facility] eGFR 124 >60 mL/min/1.7 3m2 08/06/2020 5:00 [facility] Comment:eGFR calculated gil curtis CKD-EPI equation for non- Americans. Multiply eGFR by 1.16 for patients. Total Protein 7.0 6.3 - 8.2 g/dL 08/06/2020 5:00 [facility] Albumin 4.2 3.4 - 4.9 g/dL 08/06/2020 5:00 [facility] Alkaline Phosphatase 92 38 - 126 U/L 08/06/2020 5:00 [facility] AST 29 15 - 46 U/L 08/06/2020 5:00 [facility] ALT 23 <35 U/L 08/06/2020 5:00 [facility] Bilirubin, Total 0.6 <1.4 mg/dL 08/07/19 5:00 [facility] Calcium 9.4 8.5 - 10.5 mg/dL 08/06/2020 5:00 [facility] Calculated Calcium 9.2 8.5 - 10.5 mg/dL 08/06/2020 5:00 [facility] Blood VENOUS BLOOD / Unknown Venipuncture / Unknown 08/06/2020 4:13 EST 08/06/2020 4:19 EST Kylah Whitaker PA-C CHEMISTRY & BLOOD GAS ORDERABLES Final Result [facility] [address] [place] [address] * (ABNORMAL) COMPLETE BLOOD COUNT AND DIFFERENTIAL (08/06/2020 4:13 EST) WBC 13.81(H) 4.00 - 12.40 K/cmm 08/06/2020 5:13 [facility] RBC 4.57 3.86 - 5.04 M/cmm 08/06/2020 5:13 [facility] Hemoglobin 14.0 11.6 - 15.2 gm/dL 08/06/2020 5:13 [facility] HCT 39.4 34.9 - 44.4 % 08/06/2020 5:13 [facility] MCV 86 81 - 98 fl 08/06/2020 5:13 [facility] MCH 30.6 26.7 - 33.3 pg 08/06/2020 5:13 [facility] MCHC 35.5 32.1 - 35.9 gm/dL 08/06/2020 5:13 [facility] RDW-CV 12.1 <14.7 % 08/06/2020 5:13 [facility] RDW-SD 38.3 <50.4 fl 08/06/2020 5:13 [facility] PLT 427(H) 141 - 377 K/cmm 08/06/2020 5:13 [facility] MPV 9.9 9.5 - 12.7 fl 08/06/2020 5:13 [facility] % Neutrophils 51.5 % 08/06/2020 5:13 [facility] % Lymphocytes 36.1 % 08/06/2020 5:13 [facility] % Monocytes 9.1 % 08/06/2020 5:13 [facility] % Eosinophils 2.2 % 08/06/2020 5:13 [facility] % Basophils 0.7 % 08/06/2020 5:13 [facility] % Immature Grans 0.4 % 08/07/19 5:13 [facility] Absolute Neutrophils 7.11 2.20 - 8.85 K/cmm 08/06/2020 5:13 [facility] Absolute Lymphocytes 4.98(H) 1.09 - 3.30 K/cmm 08/06/2020 5:13 [facility] Absolute Monocytes 1.26(H) 0.10 - 0.80 K/cmm 08/06/2020 5:13 [facility] Absolute Eosinophils 0.31 0.03 - 0.61 K/cmm 08/06/2020 5:13 [facility] ABS Basophils 0.10 0.01 - 0.11 K/cmm 08/06/2020 5:13 [facility] Absolute Immature Grans 0.05 0.00 - 0.06 K/cmm 08/06/2020 5:13 [facility] Type of Differential: Auto 08/06/2020 5:13 [facility] Blood VENOUS BLOOD / Unknown Venipuncture / Unknown 08/06/2020 4:13 EST 08/06/2020 4:19 EST Kylah Whitaker PA-C PACKAGES & DNA PROBE ORDERABLES Final Result Performing Organization Address City/[facility] Co de Phone Number [facility] [address] [place] [address] * HOLD SST (08/06/2020 4:13 EST) Hold Hold 08/06/2020 5:32 EST [facility] Blood VENOUS BLOOD / Unknown Venipuncture / Unknown 08/06/2020 4:13 EST 08/06/2020 4:19 EST Kylah Whitaker PA-C LAB INFO SERVICE AND SUPPORT & P TAZ RESULT Final Result Performing Organization Address City/[facility]/ZIP Co de Phone Number [facility] [address] [place] [address] * HOLD LAVENDER TOP (08/06/2020 4:13 EST) Hold Hold 08/06/2020 5:32 EST [facility] Blood VENOUS BLOOD / Unknown Venipuncture / Unknown 08/06/2020 4:13 EST 08/06/2020 4:19 EST us Kylah Whitaker PA-C LAB INFO SERVICE AND SUPPORT & P TAZ RESULT Final Result [facility] [address] [place] [address] * HOLD GREEN TOP (08/06/2020 4:13 EST) Hold Hold 08/06/2020 5:32 EST [facility] Blood VENOUS BLOOD / Unknown Venipuncture / Unknown 08/06/2020 4:13 EST 08/06/2020 4:19 EST us Kylah Whitaker PA-C LAB INFO SERVICE AND SUPPORT & P TAZ RESULT Final Result Performing Organization Address City/[facility]/ZIP Co de Phone Number [facility] [address] [place] [address] * HOLD BLUE TOP (08/06/2020 4:13 EST) Hold Hold 08/06/2020 5:32 EST [facility] Blood VENOUS BLOOD / Unknown Venipuncture / Unknown 08/06/2020 4:13 EST 08/06/2020 4:19 EST us Kylah Sarayow PA-C LAB INFO SERVICE AND SUPPORT & P TAZ RESULT Final Result Performing Organization Address City/[facility]/ZIP Co de Phone Number [facility] [address] [place] [address] documented in this encounter Visit Diagnoses Diagnosis [...]
--- OUTSIDE RECORDS SUMMARY | 2024-05-31 00:42 | XMS_ITS | Encounter Summary ---
Author Organization [facility] Address [address] [place] [address] Care Team Providers Care Rock Crushing Machine Operator Name Role Phone Unavailable Primary Care Provider Unavailabl e Reason for Visit * Reason Onset Date Comments Other 06/26/2020 Encounter Details Date Type Department Care Team (Late st Contact Info) Description 06/26/2020 Telephone [facility] OBGYN Services - [facility] [address] [place] [address] Rosa Chang, MARCELO Other Social History Tobacco [...] now. Is aware of bleeding precautions. Has AUTO FLEET MAINTENANCE MANAGER on-call number as well. Will route to beta book team to please advise further/follow up. * Telephone Encounter - Rosa Salazar RN - 06/26/2020 7908 EST Non-identified VM, left general message: nurse [...] take you to the ER.Please call the AUTO FLEET MAINTENANCE MANAGER nurses at [phone] when you receive this message. documented in this encounter Plan of Treatment Not on file documented as of this encounter Visit Diagnoses Not on filedocumented in this encounter
--- OUTSIDE RECORDS SUMMARY | 2024-05-31 00:42 | XMS_ITS | Encounter Summary ---
Author Organization [facility] Address [address] [place] [address] Care Team Providers Care Youth Accommodation Support Worker Name Role Phone Unavailable Primary Care Provider Unavailabl e Reason for Visit * Reason Onset Date Comments New/Evolving Symptoms 08/07/2020 Encounter Details Date Type Department Care Team (Late st Contact Info) Description 08/07/2020 Telephone [facility] Adult Primary Care [address] [phone] Tonja Alejandro PA-C [address] [place] [address] [place] [phone] New/Evolving Symptoms Social History Tobacco Use [...] days for Nausea. 90 Tab 08/07/2020 1 LORazepam (ATIVAN) 0.5 mg tablet Take 1 Tab by mouth 3 times daily as needed for Anxiety. Daily Max: 1.5 mg 30 Tab 08/07/2020 1 documented in this encounter Miscellaneous Notes * Telephone Encounter - Angelica Blanco DO - 08/07/2020 1916 EST payroll and benefits manager message: Patient's Fermin called several hours after [...] trouble swallowing. I spoke with GI attending numerical control lathe operator. Recommendations included going to the ER if [...]
--- OUTSIDE RECORDS SUMMARY | 2024-05-31 00:42 | XMS_ITS | Encounter Summary ---
Author Organization [facility] Address [address] [place] [address] Care Team Providers Care Junction Maker Name Role Phone Unavailable Primary Care [...] 6:47 EST - 08/04/2020 11:43 EST Emergency [facility] Emergency Department - [address] [address] Satinder Sol MD [address] [place] [address], [address] [place] [address] Non-intractable vomiting with nausea, unspecified [...] 08/04/2020 11:31 EST -Thank you for choosing [facility] for your medical care today. [...] mL 3 12/04/2019 2 lancets One Touch DelYu Rong or other brand compatible with lancing device and covered by patient's insurance. 100 Each 5 10/01/2019 1 metoclopramide HCl (REGLAN) 10 mg tablet Take 1 Tab by mouth 4 times daily as needed for up to 14 days for Nausea. 14 Tab 08/04/2020 1 nicotine (NICODERM CQ) 7 mg/24 hr [...] foot. * Valencia Red RN - 08/04/2020 0959 EST Pt resting comfortably in stretcher at this time * Valencia Red RN - 08/04/2020 0730 EST Pt incontinent of soft dark brown stool. Pt OOB to commode, medium BM. This RN and mother assisted with hygiene, and linen change. Pt endorsing anxiety, CP, abd pain. Fluids and zofran administered. Pt refusing COVID swab at this time. * Satinder Sol MD - 08/04/2020 0714 EST This patient received an evaluation and medical screening exam for emergent medical conditions at the [facility] on 08/04/2020. This note was created and authored by ASUNCION TELLES MD working under the supervision of Satinder Sol MD. This documentation is recorded by Toro Rubin acting as Scribe under the direction and presence ofSatinder Sol MD and ASUNCION TELLES MD. Satinder Sol MD and ASUNCION TELLES MD: We personally performed the services recorded by the scribe in our presence. We confirm the scribe's documentation has been reviewed by us to accurately and completely record our work, treatment, procedures, and medical decision making. ED Attending's Supervisory Statement I, Satinder Sol MD, performed a history and exam [...] and interpreted under supervision of ED attending, Satinder Sol MD. Please see formal report in the EPIC Images section. Images savedin PACS. I, ED ATTENDING, Satinder Sol MD, attest to the limited Abdomen [...] for UTI. The patient presented to the [facility] ED endorsing nausea with emesis. [...] p.o. intake of ice water without difficulty. [id number] ultrasound was performed and showed no evidence [...] (08/06/2020 10:30 EST) 08/06/2020 10:3 0 EST us Scan 2 Flash Ranging Crewmember PROCEDURE/MINOR SURGICAL OR DERABLES Final Result * POCT US ED ABDOMEN (08/04/2020 11:01 EST) Anatomical Region Laterality Modality Ultrasound 08/04/2020 11:0 5 EST Narrative 08/04/2020 19:[address] [facility] - Ultrasound Exam Date: 08/04/2020 Exam Type: POCT US ED ABDOMEN Chapter Relations Administrator: Asuncion Telles Attending: Satinder Sol MD Worksheet: [id number] (POCT US ED ABDOMEN) Exam Type: ?? [...] exam was performed and interpreted by the [facility] ED Staff Procedure Note Ismael Ji MD - 08/04/[address] [facility] - Ultrasound Exam Date: 08/04/2020 Exam Type: POCT US ED ABDOMEN Chapter Relations Administrator: Asuncion Telles Attending: Satinder Sol MD Worksheet: [id number] (POCT US ED ABDOMEN) Exam Type: Clinically [...] exam was performed and interpreted by the [facility] ED Staff Asuncion Telles MD [facility] POCT US ORDERABLES Final Re sult * HOLD SST (08/04/2020 7:18 EST) Hold Hold 08/04/2020 8:32 EST [facility] Blood VENOUS BLOOD / Unknown 08/04/2020 7:18 EST 08/04/2020 7:18 EST us Satinder Sol MD LAB INFO SERVICE AND SUPPORT & PHONE RESULT Final Result Performing Organization Address [facility] de Phone Number [facility] [address] [place] [address] * QUANT BETA HCG, (08/04/2020 7:18 EST) Beta HCG Quant, <5 <5 mIU/ml 08/04/2020 8:58 EST [facility] Comment: NOTE: : Negative: Less than 5mIU/mL Indeterminant: Between 5 and 25 mIU/mL, recommend repeat testing in 48 hours Positive: Greater than 25 mIU/mL The results of this assay can be falsely lowered due to the consumption of Biotin. Blood VENOUS BLOOD / Unknown 08/04/2020 7:18 EST 08/04/2020 7:18 EST us Satinder Sol MD CHEMISTRY & BLOOD GAS ORDERAB LES Final Result Performing Organization Address [facility] de Phone Number [facility] [address] [place] [address] * EKG 12-LEAD (08/04/2020 7:08 EST) 08/04/2020 7:08 EST Narrative [facility] EKG - 08/06/2020 10:26 EST ?[facility] Emergency ? Test Date: ?2020-08-04 Pat Name: ? CRISTY YOUNG ?Department: ?? ED ? Room: ? AC16 Gender: ? Female ? Oracle Business Intelligence Developer: ?? [id number] : ?1985 ? Requested By: GILDA SATINDER M Order Number: [id number] ? Reading MD: ?? LORI MARY MD ? Measurements Intervals ?Pitcher ? Rate: ? 56 ? P: ?4 HI: ? 135 ?QRS: ?14 QRSD: ? 92 [...] Note Lori Mary MD - 08/06/2020 [facility] Emergency Test Date: 2020-08-04 Pat Name: CRISTY LUO Department: ED Room: [facility] Gender: Female [employer] Business Intelligence Developer: [id number] : 1985 Requested By: GILDA Forman Order Number: [id number] Reading MD: LORI MARY MD Measurements Intervals Pitcher Rate: 56 P: 4 HI: 135 QRS: 14 QRSD: 92 T: 7 QT: 447 QTc: 433 Interpretive Statements SINUS BRADYCARDIA WITH OCCASIONAL SUPRAVENTRICULAR PREMATURE COMPLEXES Compared to ECG 06/13/2020 15:41:07 Sinus rhythm no longer present I reviewed the tracing and have either agreed or edited the findings inthis report. Electronically Signed On 08-06-2020 10:26:58 EST by LORI VALLE. us Satinder Sol MD CARDIAC ECG ORDERABLES Final Result [facility] EKG * LIPASE (08/04/2020 7:02 EST) Lipase 131 <251 U/L 08/04/2020 8:55 EST [facility] Blood VENOUS BLOOD / Unknown Venipuncture / Unknown 08/04/2020 7:02 EST 08/04/2020 7:05 EST Asuncion Telles MD CHEMISTRY & BLOOD GAS ORDERABLE S Final Result [facility] [address] [place] [address] * (ABNORMAL) HEPATIC FUNCTION PANEL (ALB,ALK PHOS,ALT,AST,DBIL,TOT SAL,TOT PROT) (08/04/2020 7:02 EST) Total Protein 7.0 6.3 - 8.2 g/dL 08/04/2020 8:55 [facility] Albumin 4.1 3.4 - 4.9 g/dL 08/04/2020 8:55 [facility] Bilirubin, Total <0.5 <1.4 mg/dL 08/05/19 8:55 [facility] Conjugated Bilirubin 0.0 0.0 - 0.3 mg/dL 08/04/2020 8:55 [facility] Unconjugated Bilirubin 0.2 0.0 - 1.1 mg/dL 08/04/2020 8:55 [facility] Alkaline Phosphatase 99 38 - 126 U/L 08/04/2020 8:55 [facility] ALT 16 <35 U/L 08/04/2020 8:55 [facility] AST 62(H) 15 - 46 U/L 08/04/2020 8:55 [facility] Blood VENOUS BLOOD / Unknown Venipuncture / Unknown 08/04/2020 7:02 EST 08/04/2020 7:05 EST us Asuncion Telles MD CHEMISTRY & BLOOD GAS ORDERABLE S Final Result Performing Organization Address City/[facility]/ZIP Co de Phone Number [facility] [address] [place] [address] * LACTIC ACID (08/04/2020 7:02 EST) Lactic Acid 1.9 <=2.0 mmol/L 08/04/2020 7:31 EST [facility] Blood VENOUS BLOOD / Unknown Venipuncture / Unknown 08/04/2020 7:02 EST 08/04/2020 7:05 EST us Andrés Garcia MD CHEMISTRY & BLOOD GAS ORDERAB LES Final Result [facility] [address] [place] [address] * (ABNORMAL) SCREENING GLUCOSE (08/04/2020 7:02 EST) [facility] Glucose, Screening 325(H) 70 - 100 mg/dL 08/04/2020 7:34 EST [facility] Comment:Elevated screening g lucose value greater than 180 mg/dl, please order follow up Hemoglobin A1C. Blood VENOUS BLOOD / Unknown Venipuncture / Unknown 08/04/2020 7:02 EST 08/04/2020 7:05 EST Andrés Garcia MD CHEMISTRY & BLOOD GAS ORDERAB LES Final Result Performing Organization Address City/[facility]/ZIP Co de Phone Number [facility] [address] [place] [address] * MAGNESIUM (08/04/2020 7:02 EST) [facility] Magnesium 1.7 1.7 - 2.8 mg/dL 08/04/2020 7:31 EST [facility] Blood VENOUS BLOOD / Unknown Venipuncture / Unknown 08/04/2020 7:02 EST 08/04/2020 7:05 EST Andrés Garcia MD CHEMISTRY & BLOOD GAS ORDERAB LES Final Result Performing Organization Address City/[facility]/ZIP Co de Phone Number [facility] [address] [place] [address] * TROPONIN I (08/04/2020 7:02 EST) [facility] Troponin I (ng/mL) <0.034 <0.034 ng/mL 08/04/2020 7:43 EST [facility] Blood VENOUS BLOOD / Unknown Venipuncture / Unknown 08/04/2020 7:02 EST 08/04/2020 7:05 EST Narrative [facility] - 08/04/2020 7:43 EST The results of this assay can be falsely lowered due to the consumption of Biotin. us Andrés Garcia MD CHEMISTRY & BLOOD GAS ORDERAB LES Final Result [facility] [address] [place] [address] * ELECTROLYTES (08/04/2020 7:02 EST) Sodium 138 136 - 145 mEq/L 08/04/2020 7:31 [facility] Potassium 4.1 3.5 - 5.0 mEq/L 08/04/2020 7:31 [facility] Chloride 103 96 - 110 mEq/L 08/04/2020 7:31 [facility] CO2 Total 24 22 - 32 mEq/L 08/04/2020 7:31 [facility] Blood VENOUS BLOOD / Unknown Venipuncture / Unknown 08/04/2020 7:02 EST 08/04/2020 7:05 EST Andrés Garcia MD CHEMISTRY & BLOOD GAS ORDERAB LES Final Result Performing Organization Address [facility]/ZIP Co de Phone Number [facility] [address] [place] [address] * CREATININE (08/04/2020 7:02 EST) Creatinine 0.55 0.52 - 1.04 mg/dL 08/04/2020 7:31 [facility] eGFR 122 >60 mL/min/1.7 3m2 08/04/2020 7:31 [facility] Comment:eGFR calculated gil curtis CKD-EPI equation for non- Americans. Multiply eGFR by 1.16 for patients. Blood VENOUS BLOOD / Unknown Venipuncture / Unknown 08/04/2020 7:02 EST 08/04/2020 7:05 EST Andrés Garcia MD CHEMISTRY & BLOOD GAS ORDERAB LES Final Result Performing Organization Address City/[facility]/ZIP Co de Phone Number [facility] [address] [place] [address] * BUN (08/04/2020 7:02 EST) BUN 12 10 - 26 mg/dL 08/04/2020 7:31 [facility] Blood VENOUS BLOOD / Unknown Venipuncture / Unknown 08/04/2020 7:02 EST 08/04/2020 7:05 EST us Andrés Garcia MD CHEMISTRY & BLOOD GAS ORDERAB LES Final Result [facility] [address] [place] [address] * (ABNORMAL) COMPLETE BLOOD COUNT AND DIFFERENTIAL (08/04/2020 7:02 EST) WBC 16.23(H) 4.00 - 12.40 K/cmm 08/04/2020 7:23 [facility] RBC 4.57 3.86 - 5.04 M/cmm 08/04/2020 7:23 [facility] Hemoglobin 14.1 11.6 - 15.2 gm/dL 08/04/2020 7:23 [facility] HCT 39.2 34.9 - 44.4 % 08/04/2020 7:23 [facility] MCV 86 81 - 98 fl 08/04/2020 7:23 [facility] MCH 30.9 26.7 - 33.3 pg 08/04/2020 7:23 [facility] MCHC 36.0(H) 32.1 - 35.9 gm/dL 08/04/2020 7:23 [facility] RDW-CV 12.1 <14.7 % 08/04/2020 7:23 [facility] RDW-SD 37.6 <50.4 fl 08/04/2020 7:23 [facility] PLT 395(H) 141 - 377 K/cmm 08/04/2020 7:23 [facility] MPV 10.0 9.5 - 12.7 fl 08/04/2020 7:23 [facility] % Neutrophils 70.8 % 08/04/2020 7:23 [facility] % Lymphocytes 20.3 % 08/04/2020 7:23 [facility] % Monocytes 6.0 % 08/04/2020 7:23 [facility] % Eosinophils 1.8 % 08/04/2020 7:23 [facility] % Basophils 0.5 % 08/04/2020 7:23 [facility] % Immature Grans 0.6 % 08/05/19 7:23 [facility] Absolute Neutrophils 11.51(H) 2.20 - 8.85 K/cmm 08/04/2020 7:23 [facility] Absolute Lymphocytes 3.29 1.09 - 3.30 K/cmm 08/04/2020 7:23 [facility] Absolute Monocytes 0.97(H) 0.10 - 0.80 K/cmm 08/04/2020 7:23 [facility] Absolute Eosinophils 0.29 0.03 - 0.61 K/cmm 08/04/2020 7:23 [facility] ABS Basophils 0.08 0.01 - 0.11 K/cmm 08/04/2020 7:23 [facility] Absolute Immature Grans 0.09(H) 0.00 - 0.06 K/cmm 08/04/2020 7:23 [facility] Type of Differential: Auto 08/04/2020 7:23 [facility] Blood VENOUS BLOOD / Unknown Venipuncture / Unknown 08/04/2020 7:02 EST 08/04/2020 7:05 EST us Andrés Garcia MD PACKAGES & DNA PROBE ORDERABL ES Final Result [facility] [address] [place] [address] * (ABNORMAL) POCT GLUCOSE, INTERFACED (08/04/2020 6:59 EST) Glucose, POC 328(H) 70 - 100 mg/dL 08/04/2020 7:02 EST [facility] dado operator ID [id number] 08/04/2020 7:02 EST [facility] HN LAB POC COMMENT (GLUCOSE) Test Performed by Nursing Services 08/04/2020 7:02 EST [facility] Blood CAPILLARY BLOOD / Unknown 08/04/2020 6:59 EST 08/04/2020 7:02 EST us Provider Unknown MD POINT OF CARE TEST ORDERABLE S Final Result [facility] [address] [place] [address] documented in this encounter Visit Diagnoses Diagnosis [...]
--- OUTSIDE RECORDS SUMMARY | 2024-05-31 00:42 | XMS_ITS | Encounter Summary ---
Author Organization [facility] Address [address] [place] [address] Care Team Providers Care Squirrel Worker Name Role Phone Unavailable Primary Care Provider Unavailabl e Reason for Visit * Reason Onset Date Comments No Show 07/16/2020 Yohannes 07/15/20 Encounter Details Date Type Department Care Team (Late st Contact Info) Description 07/16/2020 Telephone [facility] Endocrinology - [address] CDE [address] [facility] [address] [place] [address] No Show (Yohannes 07/15/20) Social [...]
--- OUTSIDE RECORDS SUMMARY | 2024-05-31 00:42 | XMS_ITS | Encounter Summary ---
Author Organization [facility] Address [address] [place] [address] Care Team Providers Care Parts Sales Representative Name Role Phone Unavailable Primary Care [...]
--- OUTSIDE RECORDS SUMMARY | 2024-05-31 00:42 | XMS_ITS | Encounter Summary ---
Author Organization [facility] Address [address] [place] [address] Care Team Providers Care Grey Goods Examiner Name Role Phone Unavailable Primary Care Provider Unavailabl e Reason for Visit * Reason Comments Foot Problem Encounter Details Date Type Department Care Team (Latest Contact Info) Description 07/02/2020 14:30 EST Office Visit [facility] Foot [facility] Ankle Program - [address] [address] Elza Navarro DPM [address] [place] [phone] Osteomyelitis of left foot, unspecified type ([facility]) (Primary Dx); Type 2 diabetes mellitus with diabetic polyneuropathy, with long-term current use of insulin ([facility] [...] documented in this encounter Progress Notes * Elza Navarro DPM - 07/02/2020 1430 EST HPI: Cristy Huizar Valerio is a 35 y.o. female patient who [...] 1. Osteomyelitis of left foot, unspecified type ([facility]) 2. Type 2 diabetes mellitus with diabetic polyneuropathy, with long-term current use of insulin ([facility] [...] speech recognition software or keyboard data processing consultant techniques. Minor irregularities or keyboarding misprints may be present documented in this encounter Plan of Treatment Not on file documented as of this encounter Visit Diagnoses Diagnosis Osteomyelitis of left foot, unspecified type ([facility])- Primary Type 2 diabetes mellitus with diabetic polyneuropathy, with long-term current use of insulin ([facility]) documented in this encounter
--- OUTSIDE RECORDS SUMMARY | 2024-05-31 00:42 | XMS_ITS | Encounter Summary ---
Author Organization [facility] Address [address] [place] [address] Care Team Providers Care Burglar Alarm Mechanic Name Role Phone Unavailable Primary Care Provider Unavailabl e Encounter Details Date Type Department Care Team (Late st Contact Info) Description 07/28/2020 11:15 EST Phlebotomy Only [facility] ED Center 2 Phlebotomy [address] [place] [address] Peanut Roaster, Acc Phlebotomy Encounter for sterilization Social History [...] * (ABNORMAL) SCREENING GLUCOSE (07/28/2020 11:25 EST) [facility] Glucose, Screening 260(H) 70 - 100 mg/dL 07/28/2020 12:39 EST [facility] Comment:Elevated screening g lucose value greater than 180 mg/dl, please order follow up Hemoglobin A1C. Blood VENOUS BLOOD / Unknown Venipuncture / Unknown 07/28/2020 11:25 EST 07/28/2020 12:04 EST us Whit Rae MD CHEMISTRY & BLOOD GAS ORDERAB LES Final Result [facility] [address] [place] [address] documented in this encounter Visit Diagnoses Diagnosis Encounter for sterilization Sterilization documented in this encounter
--- OUTSIDE RECORDS SUMMARY | 2024-05-31 00:42 | XMS_ITS | Encounter Summary ---
Author Organization [facility] Address [address] [place] [address] Care Team Providers Care Candy Cutter Hand Name Role Phone Unavailable Primary Care Provider Unavailabl e Reason for Visit * Reason Comments Pre-op Exam Encounter Details Date Type Department Care Team (Late st Contact Info) Description 07/28/2020 10:30 EST Office Visit [facility] OBGYN Services - [facility] [address] [place] [address] Fernanda Egan, DO [address] [place] [id number] Encounter for sterilization (Primary Dx) Social History [...] Answer Entry Date Author No 05/04/2020 0:28 EST Sylvia Ruiz RN documented in this encounter Progress Notes * Fernanda Egan [...] - Anticoagulation: NA Surgical Considerations: - PSH: 2001 tailbone cyst, toe amputation 2020, 7 D+C. [...] Egan D.O. 07/28/2020 11:05 Obstetrics/Gynecology PGY-1 Pager #[phone] * Whit Rae MD - 07/28/2020 1030 [...] 70 - 100 mg/dL 07/28/2020 12:39 EST [facility] Comment:Elevated screening g lucose value greater than 180 mg/dl, please order follow up Hemoglobin A1C. Blood VENOUS BLOOD / Unknown Venipuncture / Unknown 07/28/2020 11:25 EST 07/28/2020 12:04 EST Whit Rae MD CHEMISTRY & BLOOD GAS ORDERAB LES Final Result [facility] [address] [place] [address] * (ABNORMAL) HEMOGLOBIN A1C (07/28/2020 11:25 EST) Hemoglobin A1c 9.7(H) <5.7 % 07/28/2020 14:20 EST [facility] Comment: Glycemic Status References: [...] Est Avg Glucose 232 mg/dL 14:20 EST [facility] Comment:The eAG represents t he A1c result expressed as average glucose in mg/dL. Blood VENOUS BLOOD / Unknown Venipuncture / Unknown 07/28/2020 11:25 EST 07/28/2020 11:50 EST us Whit Rae MD CHEMISTRY & BLOOD GAS ORDERAB LES Final Result Performing Organization Address City/State/[facility] Co de Phone Number [facility] [address] [place] [phone] documented in this encounter Visit Diagnoses Diagnosis Encounter for sterilization- Primary Sterilization documented in this encounter
--- OUTSIDE RECORDS SUMMARY | 2024-05-31 00:42 | XMS_ITS | Encounter Summary ---
Author Organization [facility] Address [address] [place] [address] Care Team Providers Care Technical Sales Engineer Name Role Phone Unavailable Primary Care [...] of Assessment Author No 05/04/2020 0:28 Sylvia Alejnadro RN * Are you blind or do [...]
--- OUTSIDE RECORDS SUMMARY | 2024-05-31 00:42 | XMS_ITS | Encounter Summary ---
Author Organization [facility] Address [address] [place] [address] Care Team Providers Care Special Agent In Charge Name Role Phone Unavailable Primary Care Provider [...]
--- OUTSIDE RECORDS SUMMARY | 2024-05-31 00:42 | XMS_ITS | Encounter Summary ---
Author Organization [facility] Address [address] [place] [address] Care Team Providers Care Tavern Car Attendant Name Role Phone Unavailable Primary Care Provider Unavailabl e Encounter Details Date Type Department Care Team (Late st Contact Info) Description 07/02/2020 Orders Only [facility] Endocrinology - [facility] [address] [place] [address] Sara Zafar, GUSTAVO [address] [facility] [address] [place] [address] Type 2 diabetes mellitus with hyperglycemia, with long-term current use of insulin ([facility]) (Primary Dx) Social History Tobacco [...] with long-term current use of insulin ([facility])- Primary documented in this encounter
--- OUTSIDE RECORDS SUMMARY | 2024-05-31 00:42 | XMS_ITS | Encounter Summary ---
Author Organization [facility] Address [address] [place] [address] Care Team Providers Care Special Education Resource Teacher Name Role Phone Unavailable Primary Care Provider Unavailabl e Reason for Visit * Reason Onset Date Comments Appointment Related 07/30/2020 Encounter Details Date Type Department Care Team (Late st Contact Info) Description 07/30/2020 Telephone [facility] OBGYN Services - [facility] [address] [place], [place] [phone] Nimisha Bay MD [address] [facility] Medical Office Building, [address] [place] [address] Appointment Related Social History Tobacco [...]
--- OUTSIDE RECORDS SUMMARY | 2024-05-31 00:42 | XMS_ITS | Encounter Summary ---
Author Organization [facility] Address [address] [place] [address] Care Team Providers Care Shirt Presser Name Role Phone Unavailable Primary Care [...]
--- OUTSIDE RECORDS SUMMARY | 2024-05-31 00:42 | XMS_ITS | Encounter Summary ---
Author Organization [facility] Address [address] [place] [address] Care Team Providers Care Steward/Stewardess Smoke Room Name Role Phone Unavailable Primary Care Provider Unavailabl e Encounter Details Date Type Department Care Team (Late st Contact Info) Description 06/26/2020 Orders Only [facility] OBGYN Services - [facility] [address] [place], [place] [id number] Marisa Tony MD [address] [place] [id number] Social History Tobacco Use Types Packs/Day Years [...] Notes * Marisa Tony MD - 06/26/2020 2272 EST Asked by Gy nurses to call [...] for tramadol 50mg. Instructed patient to call national insurance officer number if sx worsen. Marisa Tony MD Wall Steamer PGY-1 Pager [phone] documented in this encounter Plan of Treatment Not on file documented as of this encounter Visit Diagnoses Not on filedocumented in this encounter
--- OUTSIDE RECORDS SUMMARY | 2024-05-31 00:43 | XMS_ITS | Encounter Summary ---
Author Organization [facility] Address [address] [place] [address] Care Team Providers Care Table Keeper Name Role Phone Unavailable Primary Care Provider Unavailabl e Reason for Visit * Reason Comments Encounter Details Date Type Department Care Team (Late st Contact Info) Description 06/20/2020 9:45 EST Office Visit [facility] - [address] [phone] Cielo Duggan MD [address] [facility], [address] [place] [address] of unknown anatomic location (Primary [...] documented in this encounter Progress Notes * Cielo Duggan MD - 06/20/2020 0945 EST Images from the original note were not included. [facility] Care Services Screen Printing Supervisor Center-Level 4 [facility] FIRST TRIMESTER ULTRASOUND Reason for Visit: First [...] precaustions 2.) hcg am of 06/21 with FARM GENERAL MANAGER service to follow documented in this [...]
--- OUTSIDE RECORDS SUMMARY | 2024-05-31 00:43 | XMS_ITS | Encounter Summary ---
Author Organization [facility] Address [address] [place] [address] Care Team Providers Care Four Horse Hitch Driver Name Role Phone Unavailable Primary Care Provider Unavailabl e Encounter Details Date Type Department Care Team (Late st Contact Info) Description 06/13/2020 Orders Only [facility] Adult Primary Care - [address] [phone] Tonja Alejandro PA-C [address] [place] [address] [place] [phone] Tobacco abuse (Primary Dx) Social History [...] Start Date End Date nicotine (NICODERM CQ) 7 mg/24 hr patch Apply one patch only daily on skin without hair. Apply to a different skin site at the same time each day. 14 Patch 06/13/2020 documented in this encounter Plan of Treatment Not on file documented as of this encounter Visit Diagnoses Diagnosis Tobacco abuse- Primary Tobacco use disorder documented in this encounter
--- OUTSIDE RECORDS SUMMARY | 2024-05-31 00:43 | XMS_ITS | Encounter Summary ---
Author Organization [facility] Address [address] [place] [address] Care Team Providers Care Powertrain Control Systems Engineer Name Role Phone Unavailable Primary Care Provider Unavailabl e Reason for Visit * Reason Onset Date Comments Follow-up 06/21/2020 Encounter Details Date Type Department Care Team (Late st Contact Info) Description 06/21/2020 Telephone [facility] OBGYN Services - [facility] [address] [place], [place] [phone] Mackenzie Kenyon MD [address] [phone] Follow-up Social History Tobacco Use Types Packs/Day [...] Kenyon MD 06/21/2020 12:12 PGY4, OBGYN Pager #[phone] documented in this encounter Plan of Treatment Not on file documented as of this encounter Visit Diagnoses Diagnosis of unknown anatomic location- Primary state, incidental documented in this encounter
--- OUTSIDE RECORDS SUMMARY | 2024-05-31 00:43 | XMS_ITS | Encounter Summary ---
Author Organization [facility] Address [address] [place] [address] Care Team Providers Care Tobacco Sweeper Name Role Phone Unavailable Primary Care Provider Unavailabl e Reason for Visit * Reason Onset Date Comments Appointment Related 06/12/2020 Encounter Details Date Type Department Care Team (Late st Contact Info) Description 06/12/2020 Telephone [facility] Endocrinology - [address] [facility] [address] [place] [address] Appointment Related Social History Tobacco [...]
--- OUTSIDE RECORDS SUMMARY | 2024-05-31 00:43 | XMS_ITS | Encounter Summary ---
Author Organization [facility] Address [address] [place] [address] Care Team Providers Care Assistant Golf Coach Name Role Phone Unavailable Primary Care [...]
--- OUTSIDE RECORDS SUMMARY | 2024-05-31 00:43 | XMS_ITS | Encounter Summary ---
Author Organization [facility] Address [address] [place] [address] Care Team Providers Care Retail Reset Merchandiser Name Role Phone Unavailable Primary Care Provider Unavailabl e Reason for Visit * Reason Onset Date Comments Miscarriage 06/26/2020 Nausea 06/26/2020 Abdominal Pain 06/26/2020 Encounter Details Date Type Department Care Team (Late st Contact Info) Description 06/26/2020 Telephone [facility] Adult Primary Care [address] [address] Tonja Alejandro PA-C [address] [place] [address] [place] [phone] Miscarriage; Nausea; Abdominal Pain Social History [...] Encounter - Tonja Alejandro PA-C - 06/26/2020 2367 EST Spoke with Stella. She has had [...] in bleeding. I encouraged her to call SWIMMING POOL SALESPERSON office back for further recommendations. She really would like to try to stay out of the ER department as they have not been helpful the last time they went there. I did explain to her there can be serious risk with miscarriages with increase pain and bleeding. She understands this and will call SWIMMING POOL SALESPERSON. * Telephone Encounter - Jesi Lua RN - 06/26/2020 1537 EST Spoke with . He states structural worker got to wifes phone and told her to go to ER. He states he is not bringing her back to the ER. He states she is not comfortable bringing her there and having them sitthere for 6hrs like they did the other day and them not do anything. He is not happy with SWIMMING POOL SALESPERSON office and states that is why he called us. Will forward message to Tonja DAWSON * Telephone Encounter - Tonja Alejandro PA-C - 06/26/2020 1525 EST Looks like someone from SWIMMING POOL SALESPERSON tried calling her. Patient needs to return phone call to them. * Telephone Encounter - Eryn Navarrete RN - 06/26/2020 1517 EST Reviewed response with patient's . He is still concerned about her pain management Will review with provider. * Telephone Encounter - Tonja Alejandro PA-C - 06/26/2020 1435 EST Please let patient know that I called over to her AGRICULTURAL RESEARCH ENGINEER office/attending web content manager. The doctor had put in a message [...] 1346 EST Has she talked with her sheet metal roofer? im concerned regarding her symptoms especially if she has a retained clot. I also worry about possible hemorrhage ( if she is severely bleeding, any increased bleedingsince yesterday? ). Has the pain changed since yesterday? Any fevers? I really think she needs to let structural worker know whats going on today . [...] provider yesterday and things were fine) Uses [facility] in [place]. * Telephone Encounter - Dayana Cosme - [...]
--- OUTSIDE RECORDS SUMMARY | 2024-05-31 00:43 | XMS_ITS | Encounter Summary ---
Author Organization [facility] Address [address] [place] [address] Care Team Providers Care Policy Manager Name Role Phone Unavailable Primary Care Provider Unavailabl e Reason for Referral * ACCOUNTS PAYABLE LEAD (Routine) - Specialty Report Received Specialty Diagnoses / Procedures Referred By Kit t Referred To Contact Diagnoses of unknown anatomic location Procedures OB FIRST TRIMESTER (LESS THAN 14 WEEKS) TRANSVAGINAL David Martínez MD Phone: tel: fax: Referral ID Status Reason Start Date Expiration Date V isits Requested Visits Authorized [id number] Specialty Report Received 06/19/2020 1 1 Reason for Visit * ACCOUNTS PAYABLE LEAD (Routine) - Specialty Report Received Specialty Diagnoses / Procedures Referred By Kit goode Referred To Contact Diagnoses of unknown anatomic location Procedures US OB FIRST TRIMESTER (LESS THAN 14 WEEKS) TRANSVAGINAL David Martínez MD Phone: tel: fax: Referral ID Status Reason Start Date Expiration Date V isits Requested Visits Authorized [id number] Specialty Report Received 06/19/2020 1 1 Encounter Details Date Type Department Care Team (Latest Contact Info) Description 06/20/2020 9:00 EST - 06/20/2020 23:59 EST Hospital Encounter [facility] OBGYN Services - [facility] [place] [address] [place] [address] of unknown anatomic location Discharge Disposition: Home [...] this encounter Medications at Time of Discharge amoxicillin-clav ulanate (AUGMENTIN) 875-125 mg per tablet Take 1 Tab by mouth 2 times daily for 7 days. 14 Tab 06/16/2020 1 amoxicillin-clav ulanate (AUGMENTIN) 875-125 mg per tablet Take 1 Tab by mouth every 12 hours. 1 blood glucose meter One Touch Verio Flex meter. 1 Each 10/04/2019 2 blood glucose test strips One Touch Verio IQ or other brand compatible with meter and covered by patient's insurance. Testing QID. 100 Each 5 10/01/2019 1 gabapentin (NEURONTIN) 100 mg capsule Take 1 Cap by mouth 3 times daily. 1 tab AM, noon, 3 tabs in fiordaliza 400 Cap 06/05/2020 1 insulin aspart U-100 (NOVOLOG FLEXPEN) 100 [...] time each day. 14 Patch 06/13/2020 documented as of this encounter Discharge Disposition [...] Sufficient. Impression 1st Trimester OB scan ,transvaginal +[id number] There is no visualized gestational sac either [...] The adnexa appear normal. Follow-up Per the BACK HOE OPERATOR service. Comment ========= Results discussed w/patient. DATE [...] Sufficient. Impression 1st Trimester OB scan ,transvaginal +[id number] There is no visualized gestational sac either [...] The adnexa appear normal. Follow-up Per the BACK HOE OPERATOR service. Comment ========= Results discussed w/patient. DATE [...] Sufficient. Impression 1st Trimester OB scan ,transvaginal +[id number] There is no visualized gestational sac either [...] The adnexa appear normal. Follow-up Per the BACK HOE OPERATOR service. Comment ========= Results discussed w/patient. DATE OF SERVICE: 06/20/2020 David Martínez MD [facility] OB ORDERABLES Edit ed Result - Final documented in this encounter Visit Diagnoses Diagnosis of unknown anatomic location state, incidental documented in this encounter
--- OUTSIDE RECORDS SUMMARY | 2024-05-31 00:43 | XMS_ITS | Encounter Summary ---
Author Organization [facility] Address [address] [place] [address] Care Team Providers Care Cigar Head Perforator Name Role Phone Unavailable Primary Care Provider Unavailabl e Reason for Visit * Auth/Cert Specialty Diagnoses / Procedures Referred By Contac t Referred To Contact Diagnoses Encounter for sterilization Procedures SC LAP,RMV ADNEXAL STRUCTURE Laparoscopic Bilateral Salpingectomy Referral ID Status Reason Start Date Expiration Date Visits Re quested Visits Authorized [id number] 1 1 Encounter Details Date Type Department Care Team (Latest Contact Info) Description 06/16/2020 13:35 EST - 06/16/2020 17:05 [facility] Hospital Encounter [facility] [place] [address] [place] [address] Elza Navarro DPDickson [address] [place] [phone] Osteomyelitis of left foot, unspecified type ([facility]) Discharge Disposition: Home or Self Care Social [...] this encounter Discharge Instructions * Discharge Instructions* Ramon Elza M, BAHMANM - 06/16/2020 16:47 EST Patient Postoperative Care [...] can be contacted during weekday officehours at [phone]. If there is an emergency, Dr. Navarro may also be contacted via pager by calling the [facility] at [phone] or [phone] (pager # [phone]). documented in this encounter Medications at Time [...] time each day. 14 Patch 06/13/2020 1 documented as of this encounter Ordered Prescriptions Prescription Sig Dispense Quantity Refills Last Filled Start Date End Date amoxicillin-clavula huma (AUGMENTIN) 875-125 mg per tablet Take 1 Tab by mouth 2 times daily for 7 days. 14 Tab 06/16/2020 06/23/2020 documented in this encounter Discharge Disposition Disposition Code Departure Means Destination Home or Self Care Wheelchair Home documented in this encounter Progress Notes * Silvia Mcdaniel, MARCELO - 06/16/2020 1444 EST Preop Covid DOS [...] was admitted to the hospital. She left A as she had to take care of one of her children. She then was started on Augmentin. Her last follow-up with podiatry was on 06/05/2020. Unfortunately the wound had gotten larger and does probe deep again. She recommended surgery for further management. Patient continues to follow-up with endocrine and last saw them on 06/05/2020. Her last A1c was 9.1. According to her tank car inspector, patient is instructed to take 32 units [...] told years ago ??? Depression ??? 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 History of CAD (history of [place] or a positive ETT, current ischemic chest [...] in this encounter Nursing Notes * Mallorie Marcial, MARCELO - 06/16/2020 3951 EST The Patient's Pre-Surgical/ Procedure test result is Positive. The Surgeon Dr. Navarro and the Anesthesiologist Have been Notified of the result. The Patient was counseled by anesthesia and Dr. Navarro regarding the Risks and Benefits of proceeding with the Surgery/ Procedure and Anesthesia. documented in this encounter OR Notes * OR Surgeon - Elza Navarro DPM - 06/16/2020 4891 EST OPERATIVE REPORT SERVICE DATE: 06/16/2020 SURGEON: Elza Navarro DPM HEALTH SCREENER: None. PREOPERATIVE DIAGNOSIS: Left great toe osteomyelitis. [...] retained. Elza Navarro DPM / DC Confirmation: [id number] Dictation ID: [id number] cc: documented in this encounter Miscellaneous Notes * Brief Op Note - Elza Navarro DPM - 06/16/2020 1644 EST Date: 06/16/2020 Location: [facility] OR Name: Cristy Luo, : 1985, Diagnosis Pre-op Diagnosis * Osteomyelitis of toe of left foot ([facility]) [M86.9] * Type 2 diabetes mellitus with diabetic polyneuropathy, with long-term current use of insulin ([facility]) [E11.42, Z79.4] Post-op Diagnosis * Osteomyelitis of toe of left foot ([facility]) [M86.9] * Type 2 diabetes mellitus with diabetic polyneuropathy, with long-term current use of insulin ([facility]) [E11.42, Z79.4] Procedures Left great toe amputation 12690 - SC AMPUTATION TOE,MT-P JT Surgeons * Elza Navarro DPM - Primary Procedure Summary Anesthesia: Monitor Anesthesia Care ASA: ASA status not filed in the log. Estimated Blood Loss: < 5 cc Total IV Fluids: per anesthesia Staff: Carpenter Assembler: Cherie Mayes RN Scrub Person: Arturo Pelletier Patient Preschool Associate Teacher: Carlita Charles Indications: Stella Luo is an [...] protocol. Patient will call GUSTAVO Collado (Diabetes WATER SAFETY INSTRUCTOR) for any further questions regarding diabetes management pre op NAOMI NAVA RN * PAT Note - Naomi Nava RN - 06/13/2020 0959 EST COVID 19 Screening Perioperative at time [...] instruct them to call us back at [phone] to report symptoms (If patient is in [...] documented in this encounter Plan of Treatment Pending Results Name Type Priority Associated Diagnoses [...] EST Osteomyelitis of toe of left foot (HCC-CMS) Type 2 diabetes mellitus with diabetic polyneuropathy, with long-term current use of insulin ([facility]) Special Needs Foot Set, Patient already has surgical shoe POCT GLUCOSE, INTERFACED Routine 06/16/2020 14:40 EST POCT CSN BARCODE URINE PREG TEST STAT 06/16/2020 14:22 EST documented in this encounter Results * PATHOLOGY - SCANNED (06/20/2020 11:10 EST) 06/20/2020 11:1 0 EST us Scan 2 Apprentice Architect LAB INFO SERVICE AND SUPPOR T & PHONE RESULT Final Result * SURGICAL PATHOLOGY (06/16/2020 16:21 EST) Final Diagnosis A. TOE, LEFT GREAT, AMPUTATION: - Acute osteomyelitis. - Disarticulated joint with no gross evidence of acute osteomyelitis. - Skin with ulceration and acute cellulitis. 06/19/2020 15:19 [facility] Attestation There was significant resident/fellow involvement in the diagnostic evaluation of this case. By the signature below, the attending physician certifies that they have personally conducted a gross and/or microscopic examination of the described specimens and rendered or confirmed the above diagnosis. 06/19/2020 15:19 [facility] at 1519 Clinical History Left great toe osteomyelitis 06/19/2020 15:19 [facility] Gross Description A. Received in [...] unguis is pale yellow firm and unremarkable. Electrophysiology Scientist sections are submitted as follows: BLOCK SHIELDS A1-A2- underlying bone, acid decalcification A3- defect to skin and soft tissue margins EUNICE GUAJARDO(ASCP) 06/17/2020 11:11 06/19/2020 15:19 [facility] Resident/Cash w: Emory Nazario DO 06/19/2020 15:19 [facility] Performing Lab [facility] 15:19 [facility] Scanned Images 06/19/2020 15:19 [facility] Tissue AMPUTATION / Unknown 06/16/2020 16:21 EST 06/16/2020 21:33 EST Comment:Left great toe osteo myelitis us Elza Navarro DPM PATHOLOGY ORDERABLES Final Resu lt [facility] [address] [place] [id number] * (ABNORMAL) ANAEROBE CULTURE/SMEAR(INC. AEROBES), OTHER (06/16/2020 16:21 EST) Organism ID Moderate Streptococcus agalactiae(A) 1 8:41 [facility] Comment:Penicillin and ampic illin are drugs of choice for treatment of beta hemolytic streptococcal infections. Organism ID Few Staphylococcus aureus(A) VITEK SUSCEPTIBILITY 1 8:41 [facility] Comment:Susceptible to nafci llin, cephalosporins and other beta lactam antibiotics (mecA gene product absent). Organism ID Few Gram-Positive Rods Aerobic (Group) 1 8:41 [facility] Organism ID Rare Prevotella bivia(A) 1 8:41 [facility] Organism ID Few Anaerococcus tetradius(A) 1 8:41 [facility] Smear Many Neutrophils Present 1 8:41 [facility] Smear Moderate Gram Positive Cocci 1 8:41 [facility] Bone ENTIRE TOE / Unknown [...] Vancomycin VITEK SUSCEPTIBILIT Y <=0.5 ug/mL: Susceptible us Elza Navarro DPM MICROBIOLOGY - GENERAL ORDERABL ES Final Result Performing Organization Address City/[facility]/ZIP Co de Phone Number [facility] [address] [place] [address] * (ABNORMAL) POCT GLUCOSE, INTERFACED (06/16/2020 14:40 EST) Glucose, POC 166(H) 70 - 100 mg/dL 06/16/2020 14:43 [facility] veterinary hospital attendant ID [id number] 06/16/2020 14:43 [facility] HN LAB POC COMMENT (GLUCOSE) Test Performed by Nursing Services 06/16/2020 14:43 [facility] Blood CAPILLARY BLOOD / Unknown 06/16/2020 14:40 EST 06/16/2020 14:43 EST us Elza Navarro DPM POINT OF CARE TEST ORDERABLES F inal Result Performing Organization Address City/[facility]/ZIP Co de Phone Number [facility] [address] [place] [address] * POCT CSN BARCODE URINE PREG TEST (06/16/2020 14:22 EST) Hold Hold 06/16/2020 16:30 [facility] Urine URINE SPECIMEN COLLECTION, CLEAN CATCH / Unknown 06/16/2020 14:22 EST 06/16/2020 14:22 EST us Tiff Salcedo MD LAB INFO SERVICE AND SUP PORT & PHONE RESULT Final Result [facility] [address] [place] [address] documented in this encounter Visit Diagnoses Diagnosis Osteomyelitis of left foot, unspecified type (HCC-CMS) Osteomyelitis of toe of left foot (HCC-CMS) Unspecified osteomyelitis, ankle and foot Type 2 diabetes mellitus with diabetic polyneuropathy, with long-term current use of insulin (HCC-CMS) documented in this encounter Admitting Diagnoses Diagnosis Osteomyelitis of toe of left foot (HCC-CMS) Unspecified osteomyelitis, ankle and foot Type 2 diabetes mellitus with diabetic polyneuropathy, with long-term current use of insulin (HCC-CMS) documented in this encounter Administered Medications Inactive Administered Medications - up to 3 most recent administrations Medication Order MAR Action Action Date Dose Rate Site lactated ringers (LR) infusion at 25 mL/hr, intravenous, CONTINUOUS, Starting on Tue06/16/20 at 1445, Until Tue06/16/20 at 1910, Routine, PreprocedureIndications:Os teomyelitis of left foot, unspecified type (HCC-CMS) Continued by Anesthesia 06/16/2020 16:17 EST documented [...] Routine, Preprocedure 1445 (Canceled Entry - Provider: Batch Job User [...]
--- OUTSIDE RECORDS SUMMARY | 2024-05-31 00:43 | XMS_ITS | Encounter Summary ---
Author Organization [facility] Address [address] [place] [address] Care Team Providers Care Certified Hearing Instrument Dispenser Name Role Phone Unavailable Primary Care Provider Unavailabl e Reason for Referral * ECHO TECHNICIAN (Routine) - Specialty Report Received Specialty Diagnoses / Procedures Referred By Kit t Referred To Contact Diagnoses of unknown anatomic location Procedures US OB FIRST TRIMESTER (LESS THAN 14 WEEKS) TRANSVAGINAL Charu Flynn MD Phone: tel: fax: Referral ID Status Reason Start Date Expiration Date V isits Requested Visits Authorized [id number] Specialty Report Received 06/20/2020 1 1 Reason for Visit * ECHO TECHNICIAN (Routine) - Specialty Report Received Specialty Diagnoses / Procedures Referred By Kit goode Referred To Contact Diagnoses of unknown anatomic location Procedures US OB FIRST TRIMESTER (LESS THAN 14 WEEKS) TRANSVAGINAL Charu Flynn MD Phone: tel: fax: Referral ID Status Reason Start Date Expiration Date V isits Requested Visits Authorized [id number] Specialty Report Received 06/20/2020 1 1 Encounter Details Date Type Department Care Team (Latest Contact Info) Description 06/25/2020 10:51 EST - 06/25/2020 23:59 EST Hospital Encounter [facility] OBGYN Services - [address] [place] [address], [place] [id number] of unknown anatomic location Discharge Disposition: Home [...] of Assessment Author No 05/04/2020 0:28 Sylvia Aleajndro RN * Are you blind or do [...] Assessment Author No 05/04/2020 0:28 Sylvia Alejandro , MARCELO * Because of a physical, mental, or [...] this encounter Medications at Time of Discharge blood glucose meter One Touch Verio Flex [...] each day. 14 Patch 06/13/2020 1 ondansetron (ZOFRAN) 4 mg tablet Take 1 Tab by mouth every 8 hours as needed for Nausea. 8 Tab 06/25/2020 1 documented as of this encounter Discharge Disposition [...] 8. View: Sufficient. Impression OB Transvaginal - 21652. 1. of unknown location with findings that [...] 8. View: Sufficient. Impression OB Transvaginal - 48856. 1. of unknown location with findings that [...] compared to today'sultrasound. DATE OF SERVICE: 06/25/2020 us Charu Flynn MD [facility] OB ORDERABLES Fin al Result documented in this encounter Visit Diagnoses Diagnosis of unknown anatomic location state, incidental documented in this encounter
--- OUTSIDE RECORDS SUMMARY | 2024-05-31 00:43 | XMS_ITS | Encounter Summary ---
Author Organization [facility] Address [address] [place] [address] Care Team Providers Care Die Grinder Name Role Phone Unavailable Primary Care Provider Unavailabl e Reason for Visit * Reason Comments Problem Encounter Details Date Type Department Care Team (Late st Contact Info) Description 06/25/2020 9:00 EST Office Visit [facility] OBGYN Services - [address] [id number] Ana Coronado MD [address] [place] [address], [address] [place] [address] Unwanted fertility (Primary Dx) Social [...] Last Filled Start Date End Date ondansetron (ZOFRAN) 4 mg tablet Take 1 [...] occasionally ??? Obesity, unspecified ??? [facility]omyelitis ([facility]) of left great toe ??? Peripheral neuropathy 12/05/19- Bilateral feet ??? Skin problem 11/28/19- Per MD notes, left foot with redness and swelling, and open wound. WBC count 14.38. MRI today to rule out osteomyelitis. ??? Spontaneous miscarriage 09/04/201502/18, 08/19. Followed by Dr. óLpez[facility] in OBGYN Past Surgical History: Procedure Laterality [...] 8. View: Sufficient. Impression OB Transvaginal - 10041. 1. of unknown location with findings that [...] I spoke with Dr. Mims, the benign derrick boat runner chief resident, and I will place a [...]
--- OUTSIDE RECORDS SUMMARY | 2024-05-31 00:43 | XMS_ITS | Encounter Summary ---
Author Organization [facility] Address [address] [place] [address] Care Team Providers Care Freight Shipping Agent Name Role Phone Unavailable Primary Care Provider Unavailabl e Reason for Visit * Reason Comments Vaginal Bleeding Vaginal bleeding, ba ck pain, and cramping since tuesday, not soaking pads, only when wiping. seen here previously for toe amputation. Encounter Details Date Type Department Care Team (Late st Contact Info) Description 06/23/2020 8:23 EST - 06/23/2020 14:10 EST Emergency [facility] Emergency Department - [address] [address] Siobhan Hare PA-C [address] [place] [address], [address] [place] [address] of unknown anatomic location (Primary [...] 06/13/2020 1 documented as of this encounter Discharge Disposition Disposition Code Departure Means Destination Comment s Home or Self [facility] Pt dc home with WC with partner, [...] pressure. She had HCG on 06/19 of 108. She had an US on 06/20 at6+2 [...] Weight Sex Delivery Anes PTL Lv 9 SAB 10/2019 Comments: D+C 8 Ectopic 10/2018 10w4d ECTOPIC Comments: interstitial diagnosed at [facility]; given MTX 10/26/18 7 SAB 01/2018 6w0d SAB Comments: D&C at [facility] after nonviable on US; had to have repeat D&Bhavna November for retained POCs 6 SAB 06/2017 6w0d SAB Comments: D&C at [facility]; nonviable seen on US; fourth with current 5 SAB 02/2017 6w0d SAB Comments: D&C at [facility]; third with current 4 SAB 08/2015 10w0d SAB Comments: D&C at [facility]; 2nd with current 3 SAB 01/2015 9w0d SAB Comments: D&C at [facility]; first current 2 SAB 2005 6w0d SAB Comments: first ; ex ; twin confirmed by US at [facility]; no medical or surgical tx 1 Past GynHx: MTX given 10/26/2018 for interstitial . See above. PMedHx: Past Medical History: Diagnosis Date ??? Anxiety ??? Arthritis 12/05/19- Spine- told years ago ??? Depression ??? Diabetes ([facility]) A1c 10.3 on 11/28/2019 - poorly controlled ??? Difficulty opening mouth 06/13/2020 pain with opening mouth wide ??? Does not exercise 06/13/2020 due to infected toe ??? History of general anesthesia ??? Hx of ectopic 06/20/2020 ??? Irritable bowel syndrome 06/13/2020 ? ? Nausea & vomiting occasionally ??? Obesity, unspecified ??? Osteomyelitis ([facility]) of left great toe ??? Peripheral [...] 27 mL 3 ??? lancets One Touch DelPortalarium or other brand compatible with lancing device [...] file Gets together: Not on file Attends nondenominational service: Not on file Active member of [...] Kenyon MD 06/23/2020 13:39 PGY4, OBGYN Pager #[phone] documented in this encounter ED Notes * [...] Rh-, received a full dose RhoGam on Ultrasound is consistent with of unknown location, [...] instructions and closely recommended follow-up. Supervising Physician: nAthony Final diagnoses: of unknown anatomic location DISPOSITION: [...] the Emergency Department: Good PCP: Tonja Alejandro [facility] 06/28/2020 17:56 No flowsheet data found. * Madelin Ma RN - 06/23/2020 1230 EST CHIMNEY SWEEPER at bedside * Marychuy Kaufman - 06/23/2020 [...] for nonviable early in the first trimester. [place] Journal of Medicine 369.15 (2013): 9080-0389. I have personally reviewed the images and the above interpretation and agree with the findings. Narrative 06/23/2020 10:53 EST US OB FIRST TRIMESTER (LESS THAN 14 WEEKS) TRANSVAGINAL ??06/23/2020 9:35 AM SIGNS AND SYMPTOMS/COMMENTS: ?? of unknown location, LMP 12/, HCG 156 two days ago, not doubling [...] AND SYMPTOMS/COMMENTS: of unknown location, LMP 05/06, [id number] two days ago, not doubling appropriately COMPARISON: [...] likely. Follow-up with obstetrics/gynecology issuggested. Reference: Ismael Ramsey., et al. Diagnostic criteria for nonviablepregnancy early in the first trimester. [place] Journal of Edfujrta096.15 (2013): 6981-7943. I have personally reviewed the images and the above interpretation andagree with the findings. Siobhan Hare PA-C [facility] OB ORDERABLES Final Result * [facility] CBC SMEAR REVIEW (06/23/2020 8:53 EST) Differential Comment Slide was examined by a technologist to verify the WBC and/or platelet count. 06/23/2020 9:44 EST [facility] Blood VENOUS BLOOD / Unknown Venipuncture / Unknown 06/23/2020 8:53 EST 06/23/2020 9:06 EST Siobhan Bonnie Payam PA-C HEMATOLOGY & PF4 ORD ERABLES Final Result [facility] [address] [place] [address] * (ABNORMAL) COMPLETE BLOOD COUNT AND DIFFERENTIAL (06/23/2020 8:53 EST) WBC 6.42 4.00 - 12.40 K/cmm 06/23/2020 9:45 [facility] RBC 4.96 3.86 - 5.04 M/cmm 06/23/2020 9:45 [facility] Hemoglobin 15.4(H) 11.6 - 15.2 gm/dL 06/23/2020 9:45 [facility] HCT 43.6 34.9 - 44.4 % 06/23/2020 9:45 [facility] MCV 88 81 - 98 fl 06/23/2020 9:45 [facility] MCH 31.0 26.7 - 33.3 pg 06/23/2020 9:45 [facility] MCHC 35.3 32.1 - 35.9 gm/dL 06/23/2020 9:45 [facility] RDW-CV 12.0 <14.7 % 06/23/2020 9:45 [facility] RDW-SD 38.6 <50.4 fl 06/23/2020 9:45 [facility] PLT 06/23/2020 9:45 [facility] Comment:Unreportable due to presence of platelet clumps. MPV 06/23/2020 9:45 [facility] Comment:Not Available % Neutrophils 52.1 % 06/23/2020 9:45 [facility] % Lymphocytes 41.0 % 06/23/2020 9:45 [facility] % Monocytes 4.7 % 06/23/2020 9:45 [facility] % Eosinophils 1.7 % 06/23/2020 9:45 [facility] % Basophils 0.3 % 06/23/2020 9:45 [facility] % Immature Grans 0.2 % 06/23/19 9:45 [facility] Absolute Neutrophils 3.35 2.20 - 8.85 K/cmm 06/23/2020 9:45 [facility] Absolute Lymphocytes 2.63 1.09 - 3.30 K/cmm 06/23/2020 9:45 [facility] Absolute Monocytes 0.30 0.10 - 0.80 K/cmm 06/23/2020 9:45 [facility] Absolute Eosinophils 0.11 0.03 - 0.61 K/cmm 06/23/2020 9:45 [facility] ABS Basophils 0.02 0.01 - 0.11 K/cmm 06/23/2020 9:45 [facility] Absolute Immature Grans 0.01 0.00 - 0.06 K/cmm 06/23/2020 9:45 [facility] Type of Differential: Auto 06/23/2020 9:45 [facility] Blood VENOUS BLOOD / Unknown Venipuncture / Unknown 06/23/2020 8:53 EST 06/23/2020 9:06 EST Siobhan Hare PA-C PACKAGES & DNA PROBE ORDERABLES Final Result [facility] [address] [place] [address] * (ABNORMAL) COMPREHENSIVE METABOLIC PANEL (CMP) (06/23/2020 8:53 EST) Sodium 143 136 - 145 mEq/L 06/23/2020 9:24 [facility] Potassium 5.0 3.5 - 5.0 mEq/L 06/23/2020 9:24 [facility] Comment:Slight hemolysis chica ntified, interpret with caution as hemolysis will elevate potassium result. Chloride 101 96 - 110 mEq/L 06/23/2020 9:24 [facility] CO2 Total 28 22 - 32 mEq/L 06/23/2020 9:24 [facility] Glucose 249(H) 70 - 100 mg/dL 06/23/2020 9:24 [facility] BUN 12 10 - 26 mg/dL 06/23/2020 9:24 [facility] Comment: Slight hemolysis identified, interpret with caution as results may be affected due to hemolysis. Creatinine 0.44(L) 0.52 - 1.04 mg/dL 06/23/2020 9:24 [facility] eGFR 131 >60 mL/min/1.7 3m2 06/23/2020 9:24 [facility] Comment:eGFR calculated usbrie curtis CKD-EPI equation for non- Americans. Multiply eGFR by 1.16 for patients. Total Protein 8.5(H) 6.3 - 8.2 g/dL 06/23/2020 9:24 [facility] Comment:Slight hemolysis chica ntified, interpret with caution as results may be affected due to hemolysis. Albumin 4.9 3.4 - 4.9 g/dL 06/23/2020 9:24 [facility] Comment:Slight hemolysis chica ntified, interpret with caution as results may be affected due to hemolysis. Alkaline Phosphatase 118 38 - 126 U/L 06/23/2020 9:24 [facility] Comment:Slight hemolysis chica ntified, hemolysis will decrease ALKP result. Interpret with caution as results may be affected due to hemolysis. AST 36 15 - 46 U/L 06/23/2020 9:24 [facility] Comment:Slight hemolysis chica ntified, interpret with caution as results may be affected due to hemolysis. ALT 20 <35 U/L 06/23/2020 9:24 [facility] Bilirubin, Total 0.7 <1.4 mg/dL 06/23/19 21 9:24 [facility] Calcium 10.2 8.5 - 10.5 mg/dL 06/23/2020 9:24 [facility] Calculated Calcium 9.5 8.5 - 10.5 mg/dL 06/23/2020 9:24 [facility] Comment:Slight hemolysis chica ntified, interpret with caution as results may be affected due to hemolysis. Blood VENOUS BLOOD / Unknown Venipuncture / Unknown 06/23/2020 8:53 EST 06/23/2020 9:06 EST us Siobhan Hare PA-C CHEMISTRY & BLOOD GA S ORDERABLES Final Result Performing Organization Address [facility]/ZIP Co de Phone Number [facility] [address] [place] [address] * (ABNORMAL) QUANT BETA HCG, (06/23/2020 8:53 EST) Beta HCG Quant, 111(H) <5 mIU/ml 06/23/2020 9:38 EST [facility] Comment: NOTE: : Negative: Less than 5mIU/mL Indeterminant: Between 5 and 25 mIU/mL, recommend repeat testing in 48 hours Positive: Greater than 25 mIU/mL The results of this assay can be falsely lowered due to the consumption of Biotin. Blood VENOUS BLOOD / Unknown Venipuncture / Unknown 06/23/2020 8:53 EST 06/23/2020 9:06 EST us Siobhan Hare PA-C CHEMISTRY & BLOOD GA S ORDERABLES Final Result [facility] [address] [place] [address] documented in this encounter Visit Diagnoses Diagnosis of unknown anatomic location- Primary state, incidental documented in this encounter
--- OUTSIDE RECORDS SUMMARY | 2024-05-31 00:43 | XMS_ITS | Encounter Summary ---
Author Organization [facility] Address [address] [place] [address] Care Team Providers Care Seismic Survey Assistant Name Role Phone Unavailable Primary Care Provider Unavailabl e Encounter Details Date Type Department Care Team (Late st Contact Info) Description 06/26/2020 Documentation Visit [facility] Obstetrics & Midwifery - [address] [phone] Nohemy Sales MD [address] [facility], [address] [place] [address] Social History Tobacco Use Types [...] in this encounter Progress Notes * Nohemy Sales MD - 06/26/2020 1437 EST MFM Attg Received call from PA in PCP office-this pt called stating having SAB with bleeding 1 pad/hr and 10/10 pain. Will have [facility] HE[facility]CARE PRACTITIONER RN call today Nohemy Sales MD documented in this encounter Plan of Treatment Not on file documented as of this encounter Visit Diagnoses Not on filedocumented in this encounter
--- OUTSIDE RECORDS SUMMARY | 2024-05-31 00:43 | XMS_ITS | Encounter Summary ---
Author Organization [facility] Address [address] [place] [address] Care Team Providers Care Sash Sticker Name Role Phone Unavailable Primary Care Provider Unavailabl e Reason for Visit * Reason Onset Date Comments Other 06/13/2020 Encounter Details Date Type Department Care Team (Late st Contact Info) Description 06/13/2020 Telephone [facility] Foot & Ankle Program - [address] [address] Elza Navarro [address] [place] [address] Other Social History Tobacco Use [...] told to arrive @1:30 on 06.16.20 @ [facility], nothing to eat or drink after midnight, no makeup/jewelry/nailpolish/perfumes, to shower the night before and morning of surgery with an antibacterial soap, to wear appropriate attire (baggy, loose fitting, etc), to leave all valuables at home. Post op visit is 1.20.21 @3pm. Patient verbalized understanding of instructions. SWATHI TESFAYE LPN documented in this encounter Plan of Treatment Not on file documented as of this encounter Visit Diagnoses Not on filedocumented in this encounter
--- OUTSIDE RECORDS SUMMARY | 2024-05-31 00:43 | XMS_ITS | Encounter Summary ---
Author Organization [facility] Address [address] [place] [address] Care Team Providers Care Dye House Hand Name Role Phone Unavailable Primary Care [...]
--- OUTSIDE RECORDS SUMMARY | 2024-05-31 00:43 | XMS_ITS | Encounter Summary ---
Author Organization [facility] Address [address] [place] [address] Care Team Providers Care Filter Tank Tender Helper Head Name Role Phone Unavailable Primary Care Provider Unavailabl e Reason for Referral * DROP TESTER (Routine) - Specialty Report Received Specialty Diagnoses / Procedures Referred By Contac t Referred To Contact Diagnoses of unknown anatomic location Procedures OB FIRST TRIMESTER (LESS THAN 14 WEEKS) TRANSVAGINAL Charu Flynn MD Phone: tel: fax: Referral ID Status Reason Start Date Expiration Date V isits Requested Visits Authorized [id number] Specialty Report Received 06/20/2020 1 1 Reason for Visit * Reason Onset Date Comments Follow-up 06/20/2020 Encounter Details Date Type Department Care Team (Late Contact Info) Description 06/20/2020 Telephone [facility] OBGYN Services - [address] [id number] Susana Tomlinson, RN Follow-up Social History Tobacco [...] Sylvia Ruiz RN documented in this encounter Miscellaneous Notes * Telephone Encounter - Susana Tomlinson RN - 06/20/2020 2333 EST Spoke Stella: advised plan per MD [...] call us with any concerns or questions. ARMATURE VARNISHER nurse line [phone], or after hours MD line [phone]. documented in this encounter Plan of Treatment [...] 8. View: Sufficient. Impression OB Transvaginal - 58082. 1. of unknown location with findings that [...] 8. View: Sufficient. Impression OB Transvaginal - [address]. 1. of unknown location with findings that [...] OF SERVICE: 06/25/2020 us Charu Flynn MD IMG US OB ORDERABLES Fin al Result documented in this encounter Visit Diagnoses Diagnosis of unknown anatomic location- Primary state, incidental of unknown anatomic location state, incidental documented in this encounter
--- OUTSIDE RECORDS SUMMARY | 2024-05-31 00:43 | XMS_ITS | Encounter Summary ---
Author Organization [facility] Address [address] [place] [address] Care Team Providers Care Inventory Associate Name Role Phone Unavailable Primary Care [...]
--- OUTSIDE RECORDS SUMMARY | 2024-05-31 00:43 | XMS_ITS | Encounter Summary ---
Author Organization [facility] Address [address] [place] [address] Care Team Providers Care Body Liner Name Role Phone Unavailable Primary Care Provider Unavailabl e Encounter Details Date Type Department Care Team (Late st Contact Info) Description 06/25/2020 11:45 EST Phlebotomy Only [facility] 2 Phlebotomy [address] [place] [address] Negative Developer, Acc Phlebotomy of unknown anatomic location Social [...] Quant, 49(H) <5 mIU/ml 06/25/2020 12:28 EST [facility] Comment: NOTE: : Negative: Less than 5mIU/mL Indeterminant: Between 5 and 25 mIU/mL, recommend repeat testing in 48 hours Positive: Greater than 25 mIU/mL The results of this assay can be falsely lowered due to the consumption of Biotin. Blood VENOUS BLOOD / Unknown Venipuncture / Unknown 06/25/2020 10:45 EST 06/25/2020 11:43 EST us Charu Flynn MD CHEMISTRY & BLOOD GAS OR DERABLES Final Result [facility] [address] [place] [address] documented in this encounter Visit Diagnoses Diagnosis of unknown anatomic location state, incidental documented in this encounter
--- OUTSIDE RECORDS SUMMARY | 2024-05-31 00:43 | XMS_ITS | Encounter Summary ---
Author Organization [facility] Address [address] [place] [address] Care Team Providers Care Welt Beater Name Role Phone Unavailable Primary Care Provider Unavailabl e Reason for Visit * Reason Onset Date Comments Other 06/17/2020 Encounter Details Date Type Department Care Team (Late st Contact Info) Description 06/17/2020 Telephone [facility] Foot & Ankle Program - [address] [address] Elza Navarro [address] [place] [address] Other Social History Tobacco Use [...]
--- OUTSIDE RECORDS SUMMARY | 2024-05-31 00:43 | XMS_ITS | Encounter Summary ---
Author Organization [facility] Address [address] [place] [address] Care Team Providers Care Leveler Helper Name Role Phone Unavailable Primary Care Provider Unavailabl e Reason for Visit * Reason Comments Foot Problem Encounter Details Date Type Department Care Team (Latest Contact Info) Description 06/25/2020 15:00 EST Post-op Visit [facility] Foot & Ankle Program - [address] [address] [address] [address] Osteomyelitis of left foot, unspecified type ([facility]) (Primary Dx); Type 2 diabetes mellitus with diabetic polyneuropathy, with long-term current use of insulin ([facility]) Social History Tobacco Use [...] Progress Notes * Elza Navarro DPM - 06/25/2020 1500 EST HPI: Cristy [...] 1. Osteomyelitis of left foot, unspecified type ([facility]) 2. Type 2 diabetes mellitus with diabetic polyneuropathy, with long-term current use of insulin ([facility]) No orders of the defined types were [...] with speech recognition software or keyboard data analyst etl developer techniques. Minor irregularities or keyboarding misprints may be present documented in this encounter Plan of Treatment Not on file documented as of this encounter Visit Diagnoses Diagnosis Osteomyelitis of left foot, unspecified type ([facility] Primary Type 2 diabetes mellitus with diabetic polyneuropathy, with long-term current use of insulin ([facility]) documented in this encounter
--- OUTSIDE RECORDS SUMMARY | 2024-05-31 00:43 | XMS_ITS | Encounter Summary ---
Author Organization [facility] Address [address] [place] [address] Care Team Providers Care Group Underwriter Name Role Phone Unavailable Primary Care Provider Unavailabl e Encounter Details Date Type Department Care Team (Latest Contact Info) Description 06/09/2020 9:35 EST Phlebotomy Only [facility] - [employer] [address] [place] [address] Osteomyelitis of left foot, unspecified type ([facility]-CMS) Social History Tobacco Use Types [...] Priority Date/Time Associated Diagnosis Comments ZZCOVID-19 TEST [facility] PCR Today 06/09/2020 9:28 EST Osteomyelitis of left foot, unspecified type (HCC-CMS) COVID-19 TESTING Routine 06/09/2020 9:28 EST Osteomyelitis of left foot, unspecified type (HCC-CMS) documented in this encounter Results * COVID-19 TEST [facility] PCR (06/09/2020 9:28 EST) Swab ENTIRE NASOPHARYNX / Unknown Swab / Unknown 06/09/2020 9:28 EST 06/09/2020 9:28 EST Elza RUGGIERO MICROBIOLOGY - GENERAL ORDERABL ES Final Result Performing Organization Address [facility] Co de Phone Number [facility] [address] [place] [address] * COVID-19 TESTING (06/09/2020 9:28 EST) COVID-19 rt-PCR Result Negative Negative 06/09/2020 16:34 EST [facility] Comment: This test has [...] history, and epidemiological information. Performed on the SmartVault[employer] Fusion instrument Performing Lab [facility] Lab 06/09/2020 16:34 EST [facility] Swab ENTIRE NASOPHARYNX / Unknown Swab / Unknown 06/09/2020 9:28 EST 06/09/2020 9:28 EST Elza Navarro DPM MICROBIOLOGY - GENERAL ORDERABL ES Final Result Performing Organization Address City/[facility]/ZIP Co de Phone Number [facility] [address] [place] [address] documented in this encounter Visit Diagnoses Diagnosis Osteomyelitis of left foot, unspecified type (HCC-CMS) documented in this encounter
--- OUTSIDE RECORDS SUMMARY | 2024-05-31 00:43 | XMS_ITS | Encounter Summary ---
Author Organization [facility] Address [address] [place] [address] Care Team Providers Care Staff Nuclear Weapons Officer Name Role Phone Unavailable Primary Care Provider Unavailabl e Reason for Visit * Reason Onset Date Comments Medication Management 06/13/2020 Encounter Details Date Type Department Care Team (Late st Contact Info) Description 06/13/2020 Telephone [facility] Endocrinology - [facility] [address] [place] [address] Sara Zafar NP [address] [facility] [address] [place] [address] Medication Management Social History Tobacco [...]
--- OUTSIDE RECORDS SUMMARY | 2024-05-31 00:43 | XMS_ITS | Encounter Summary ---
Author Organization [facility] Address [address] [place] [address] Care Team Providers Care Magnetic Testing Technician Name Role Phone Unavailable Primary Care Provider Unavailabl e Reason for Referral * RAILROAD COOK (Routine) - Specialty Report Received Specialty Diagnoses / Procedures Referred By Contac t Referred To Contact Diagnoses of unknown anatomic location Procedures OB FIRST TRIMESTER (LESS THAN 14 WEEKS) TRANSVAGINAL David Martínez MD Phone: tel: fax: Referral ID Status Reason Start Date Expiration Date V isits Requested Visits Authorized [id number] Specialty Report Received 06/19/2020 1 1 Reason for Visit * Reason Onset Date Comments 06/18/2020 Encounter Details Date Type Department Care Team (Late st Contact Info) Description 06/18/2020 Telephone [facility] OBGYN Services - [address] [address] Nohemy Sales MD [address] [facility], [address] [place] [address] Social History Tobacco Use Types [...] Tuesday - 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 Almonte - ideally should be TAIL BOARD WORKER provider managing at this time. Dr. [...] she is able to come down to [facility] for this lab draw and understands plan. She had no further questions and verbalized understanding of plan. Will follow up when bHCG comes back. * Telephone Encounter - Elza Nieves - 06/18/2020 0821 EST Have you been seen here before for OB care? Yes If yes, who did you see (Refer to if can???t remember)? [facility] on [place], diabetic. Reason for Call as described by [...] for us to reach you back at? [phone] What time of day is the best [...] Quant, 152(H) <5 mIU/ml 06/21/2020 11:01 EST [facility] Comment: NOTE: : Negative: Less than 5mIU/mL Indeterminant: Between 5 and 25 mIU/mL, recommend repeat testing in 48 hours Positive: Greater than 25 mIU/mL The results of this assay can be falsely lowered due to the consumption of Biotin. Blood VENOUS BLOOD / Unknown Venipuncture / Unknown 06/21/2020 9:14 EST 06/21/2020 10:14 EST us David Martínez MD CHEMISTRY & BLOOD GAS ORD ERABLES Final Result [facility] [address] [place] [address] * US OB FIRST TRIMESTER (LESS THAN [...] Sufficient. Impression 1st Trimester OB scan ,transvaginal +[id number] There is no visualized gestational sac either [...] The adnexa appear normal. Follow-up Per the TAIL BOARD WORKER service. Comment ========= Results discussed w/patient. [...] Sufficient. Impression 1st Trimester OB scan ,transvaginal +[id number] There is no visualized gestational sac either [...] The adnexa appear normal. Follow-up Per the TAIL BOARD WORKER service. Comment ========= Results discussed w/patient. [...] Sufficient. Impression 1st Trimester OB scan ,transvaginal +[id number] There is no visualized gestational sac either [...] The adnexa appear normal. Follow-up Per the TAIL BOARD WORKER service. Comment ========= Results discussed w/patient. DATE OF SERVICE: 06/20/2020 David Martínez MD [facility] OB ORDERABLES Edit ed Result - Final * (ABNORMAL) QUANT BETA HCG, (06/19/2020 13:07 EST) Beta HCG Quant, 108(H) <5 mIU/ml 06/19/2020 14:38 EST [facility] Comment: NOTE: : Negative: Less than 5mIU/mL Indeterminant: Between 5 and 25 mIU/mL, recommend repeat testing in 48 hours Positive: Greater than 25 mIU/mL The results of this assay can be falsely lowered due to the consumption of Biotin. Blood VENOUS BLOOD / Unknown Venipuncture / Unknown 06/19/2020 13:07 EST 06/19/2020 13:54 EST us David Martínez MD CHEMISTRY & BLOOD GAS ORD ERABLES Final Result [facility] [address] [place] [address] documented in this encounter Visit Diagnoses Diagnosis of unknown anatomic location- Primary state, incidental of unknown anatomic location state, incidental documented in this encounter
--- OUTSIDE RECORDS SUMMARY | 2024-05-31 00:43 | XMS_ITS | Encounter Summary ---
Author Organization [facility] Address [address] [place] [address] Care Team Providers Care Women'S Lacrosse Coach Name Role Phone Unavailable Primary Care [...]
--- OUTSIDE RECORDS SUMMARY | 2024-05-31 00:43 | XMS_ITS | Encounter Summary ---
Author Organization [facility] Address [address] [place] [address] Care Team Providers Care Director Of Industrial Relations Name Role Phone Unavailable Primary Care Provider Unavailabl e Encounter Details Date Type Department Care Team (Late st Contact Info) Description 06/21/2020 9:15 EST Phlebotomy Only [facility] ED Center 2 Phlebotomy [address] [place] [address] Program Officer, Acc Phlebotomy of unknown anatomic location [...] Quant, 152(H) <5 mIU/ml 06/21/2020 11:01 EST [facility] Comment: NOTE: : Negative: Less [...] & BLOOD GAS ORD ERABLES Final Result [facility] [address] [place] [address] documented in this encounter Visit Diagnoses Diagnosis of unknown anatomic location state, incidental documented in this encounter
--- OUTSIDE RECORDS SUMMARY | 2024-05-31 00:43 | XMS_ITS | Encounter Summary ---
Author Organization [facility] Address [address] [place] [address] Care Team Providers Care Lepidopterist Name Role Phone Unavailable Primary Care Provider Unavailabl e Reason for Visit * Reason Comments Pre-op Exam toe Encounter Details Date Type Department Care Team (Latest Contact Info) Description 06/13/2020 15:30 EST Office Visit [facility] Adult Primary Care - [address] [address] Teodoro Alejandro PA-C [facility] [address] [place] [phone] Osteomyelitis of great toe of left [...] in this encounter Progress Notes * Teodoro Alejandro [...] last A1c was 9.1. According to her senior staff specialized employment, patient is instructed to take 32 units [...] ago ??? Depression ??? 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 PC Site ? Test Date: ?2020-06-13 Pat Name: ? CRISTY YOUNG ?Department: ?? [facility] ? Room: ? Gender: ? Female ? Reroller Hand: ?? [id number] : ?1985 ? Requested By: HUBERT Forman Order Number: [id number] ? Reading MD: ?? TEODORO ALEJANDRO PA-C ? Measurements Intervals ?[place] ? Rate: ? 94 ? P: ?59 [place]: ? 156 ?QRS: ?34 QRSD: ? 89 [...] Procedure Note Teodoro Alejandro PA-C - 06/13/2020 PC Site Test Date: 2020-06-13 Pat Name: CRISTY LUO Department: [facility] Room: Gender: Female Reroller Hand: [id number] : 1985 Requested By: HUBERT Forman Order Number: [id number] Reading MD: TEODORO ALEJANDRO PA-C Measurements Intervals [place] Rate: 94 P: 59 [place]: 156 QRS: 34 QRSD: 89 T: 13 QT: 335 QTc: 420 Interpretive Statements SINUS RHYTHM Automated Interpretation. Provider Interpretation to follow. Compared to ECG 06/18/2019 08:28:09 No significant changes I reviewed the tracing and have either agreed or edited the findings inthis report. Electronically Signed On 06-13-2020 15:48:18 EST by TEODORO SPENCE us Teodoro Alejandro PA-C CARDIAC ECG ORDERABL ES Final Result [facility] EKG documented in this encounter Visit Diagnoses Diagnosis Osteomyelitis of great toe of left foot (HCC-CMS)- Primary Pre-op examination Preoperative examination, unspecified documented in this encounter
--- OUTSIDE RECORDS SUMMARY | 2024-05-31 00:43 | XMS_ITS | Encounter Summary ---
Author Organization [facility] Address [address] [place] [address] Care Team Providers Care Bread Molder Name Role Phone Unavailable Primary Care Provider Unavailabl e Reason for Visit * Auth/Cert Specialty Diagnoses / Procedures Referred By Kit t Referred To Contact Diagnoses Encounter for sterilization Procedures CO LAP,RMV ADNEXAL STRUCTURE Laparoscopic Bilateral Salpingectomy Referral ID Status Reason Start Date Expiration Date Visits Re quested Visits Authorized [id number] 1 1 Encounter Details Date Type Department Care Team (Late st Contact Info) Description 06/16/2020 15:25 EST - 06/16/2020 16:40 EST Surgery [facility] [address] [place] [address] Elza Navarro DPM [address] [place] [phone] Left great toe amputation [85649 (CPT??)] Surgery Details Date/Time Status Location OR Service Patient Class Case Cl ass Case Type Trauma Case? 06/16/2020 1525 Posted [facility] OR [facility] Orthoped[facility] Outpatient Surgery H - Elective Panel 1 [...] Date of Assessment Author No 05/04/2020 0:28 EST Sylvia Ruiz RN * Are you blind or do [...] can be contacted during weekday officehours at [phone]. If there is an emergency, Dr. Navarro may also be contacted via pager by calling the at [phone] or [phone] (pager # [phone]). documented in this encounter Medications at Time [...] Notes * Silvia Mcdaniel RN - 06/16/2020 0843 EST Preop Covid DOS screening questionnaire Please [...] last A1c was 9.1. According to her child psychometrist, patient is instructed to take 32 units [...] vomiting occasionally ??? Obesity, unspecified ??? Osteomyelitis ([facility]) of left great toe ??? Peripheral [...] X Gastrointestinal x Intermittent nausea from antibiotics ASSAYER x History of multiple miscarriages Musculoskeletal x [...] intrathoracic) 2. History of CAD (history of GA or a positive ETT, current ischemic chest [...] Notes * Mallorie Marcial RN - 06/16/2020 8770 EST The Patient's Pre-Surgical/ Procedure test result is Positive. The Surgeon Dr. Navarro and the Anesthesiologist Have been Notified of the result. The Patient was counseled by anesthesia and Dr. Navarro regarding the Risks and Benefits of proceeding with the Surgery/ Procedure and Anesthesia. documented in this encounter OR Notes * OR Surgeon - Elza Navarro DPM - 06/16/2020 8995 EST OPERATIVE REPORT SERVICE DATE: 06/16/2020 SURGEON: Elza Navarro DPM BILINGUAL EXECUTIVE ASSISTANT: None. PREOPERATIVE DIAGNOSIS: Left great toe [...] specimens removed, and no drains retained. Elza aNvarro DPM / DC Confirmation: [id number] Dictation ID: [id number] cc: documented in this encounter Miscellaneous Notes * Brief Op Note - Elza Navarro DPM - 06/16/2020 1644 EST Date: 06/16/2020 Location: [facility] OR Name: Cristy Luo, : 1985, Diagnosis Pre-op Diagnosis * Osteomyelitis of toe of left foot ([facility]-CMS) [M86.9] * Type 2 diabetes mellitus with diabetic polyneuropathy, with long-term current use of insulin (HCC-CMS) [E11.42, Z79.4] Post-op Diagnosis * Osteomyelitis of toe of left foot (HCC-CMS) [M86.9] * Type 2 diabetes mellitus with diabetic polyneuropathy, with long-term current use of insulin ([facility]-CMS) [E11.42, Z79.4] Procedures Left great toe amputation 26056 - CO AMPUTATION TOE,MT-P JT Surgeons * Elza Navarro DPM - Primary Procedure Summary Anesthesia: Monitor Anesthesia Care ASA: ASA status not filed in the log. Estimated Blood Loss: < 5 cc Total IV Fluids: per anesthesia Staff: Event Marketing Coordinator: Cherie Mayes RN Scrub Person: Arturo Pelletier Patient Automotive Consultant: Carlita Charles Indications: Stella Luo is an [...] protocol. Patient will call GUSTAVO Collado (Diabetes JOB ORDER CLERK) for any further questions regarding diabetes management pre op NAOMI NAVA RN * JOHN Note - Naomi Nava RN - 06/13/2020 0900 EST COVID 19 Screening Perioperative at time [...] instruct them to call us back at [phone] to report symptoms (If patient is in [...] EST Osteomyelitis of toe of left foot ([facility]) Type 2 diabetes mellitus with diabetic polyneuropathy, with long-term current use of insulin ([facility]) Special Needs Foot Set, Patient already has surgical shoe POCT GLUCOSE, INTERFACED Routine 06/16/2020 14:40 EST POCT CSN BARCODE URINE PREG TEST STAT 06/16/2020 14:22 EST documented in this encounter Results * PATHOLOGY - SCANNED (06/20/2020 11:10 EST) 06/20/2020 11:1 0 EST us Scan 2 Apns LAB INFO SERVICE AND SUPPOR T & PHONE RESULT Final Result * SURGICAL PATHOLOGY (06/16/2020 16:21 EST) Final Diagnosis A. TOE, LEFT GREAT, AMPUTATION: - Acute osteomyelitis. - Disarticulated joint with no gross evidence of acute osteomyelitis. - Skin with ulceration and acute cellulitis. 06/19/2020 15:19 [facility] Attestation There was significant resident/fellow involvement in the diagnostic evaluation of this case. By the signature below, the attending physician certifies that they have personally conducted a gross and/or microscopic examination of the described specimens and rendered or confirmed the above diagnosis. 06/19/2020 15:19 [facility] at 1519 Clinical History Left great toe osteomyelitis 06/19/2020 15:19 [facility] Gross Description [...] unguis is pale yellow firm and unremarkable. Forgesmith sections are submitted as follows: BLOCK SHIELDS A1-A2- underlying bone, acid decalcification A3- defect to skin and soft tissue margins EUNICE GUAJARDO(ASCP) 06/17/2020 11:11 06/19/2020 15:19 [facility] Resident/Cash w: Emory Nazario DO 06/19/2020 15:19 [facility] Performing Lab [facility] 15:19 [facility] Scanned Images 06/19/2020 15:19 [facility] Tissue AMPUTATION / Unknown 06/16/2020 16:21 EST 06/16/2020 21:33 EST Comment:Left great toe osteo myelitis us Elza Navarro DPM PATHOLOGY ORDERABLES Final Resu lt [facility] [address] [place] [address] * (ABNORMAL) ANAEROBE CULTURE/SMEAR(INC. AEROBES), OTHER (06/16/2020 16:21 EST) Organism ID Moderate Streptococcus agalactiae(A) 1 8:41 [facility] Comment:Penicillin and ampic illin are drugs of choice for treatment of beta hemolytic streptococcal infections. Organism ID Few Staphylococcus aureus(A) VITEK SUSCEPTIBILITY 1 8:41 [facility] Comment:Susceptible to nafci llin, cephalosporins and other beta lactam antibiotics (mecA gene product absent). Organism ID Few Gram-Positive Rods Aerobic (Group) 1 8:41 [facility] Organism ID Rare Prevotella bivia(A) 1 8:41 [facility] Organism ID Few Anaerococcus tetradius(A) 1 8:41 [facility] Smear Many Neutrophils Present 1 8:41 [facility] Smear Moderate Gram Positive Cocci 1 8:41 [facility] Bone ENTIRE TOE [...] MICROBIOLOGY - GENERAL ORDERABL ES Final Result [facility] [address] [place] [address] * (ABNORMAL) POCT GLUCOSE, INTERFACED (06/16/2020 14:40 EST) Glucose, POC 166(H) 70 - 100 mg/dL 06/16/2020 14:43 EST [facility] nut dehydrator operator ID [id number] 06/16/2020 14:43 [facility] HN LAB POC COMMENT (GLUCOSE) Test Performed by Nursing Services 06/16/2020 14:43 [facility] Blood CAPILLARY BLOOD / Unknown 06/16/2020 14:40 EST 06/16/2020 14:43 EST us Elza Navarro DPM POINT OF CARE TEST ORDERABLES F inal Result Performing Organization Address City/[facility]/ZIP Co de Phone Number [facility] [address] [place] [address] * POCT CSN BARCODE URINE PREG TEST (06/16/2020 14:22 EST) Hold Hold 06/16/2020 16:30 EST [facility] Urine URINE SPECIMEN COLLECTION, CLEAN CATCH / Unknown 06/16/2020 14:22 EST 06/16/2020 14:22 EST us Tiff Salcedo MD LAB INFO SERVICE AND SUP PORT & PHONE RESULT Final Result Performing Organization Address City/[facility]/ZIP Co de Phone Number [facility] [address] [place] [address] documented in this encounter Visit Diagnoses Diagnosis Osteomyelitis of left foot, unspecified type (HCC-CMS) Osteomyelitis of toe of left foot (HCC-CMS) Unspecified osteomyelitis, ankle and foot Type 2 diabetes mellitus with diabetic polyneuropathy, with long-term current use of insulin ([facility]) Osteomyelitis of toe of left foot (HCC-CMS) Unspecified osteomyelitis, ankle and foot Type 2 diabetes mellitus with diabetic polyneuropathy, with long-term current use of insulin ([facility]-CMS) documented in this encounter Admitting Diagnoses Diagnosis Osteomyelitis of toe of left foot ([facility]-CMS) Unspecified osteomyelitis, ankle and foot Type 2 diabetes mellitus with diabetic polyneuropathy, with long-term current use of insulin ([facility]-CMS) documented in this encounter Administered Medications Inactive Administered Medications - up to 3 most recent administrations Medication Order MAR Action Action Date Dose Rate Site lactated ringers (LR) infusion at 25 mL/hr, intravenous, CONTINUOUS, Starting on Tue06/16/20 at 1445, Until Tue06/16/20 at 1910, Routine, PreprocedureIndications:Ost eomyelitis of left foot, unspecified type (HCC-CMS) Continued by Anesthesia 06/16/2020 16:17 EST lidocaine [...]
--- OUTSIDE RECORDS SUMMARY | 2024-05-31 00:43 | XMS_ITS | Encounter Summary ---
Author Organization [facility] Address [address] [place] [address] Care Team Providers Care Family Medicine Physician Assistant Name Role Phone Unavailable Primary Care Provider Unavailabl e Reason for Visit * Reason Onset Date Comments Follow-up 06/25/2020 Encounter Details Date Type Department Care Team (Late st Contact Info) Description 06/25/2020 Telephone [facility] OBGYN Services - [facility] [address] [place], [place] [id number] Susana Tomlinson, RN Follow-up Social History Tobacco [...] Encounter - Susana Tomlinson RN - 06/25/2020 1249 EST Spoke with Stella: advised HCG result [...]
--- OUTSIDE RECORDS SUMMARY | 2024-05-31 00:43 | XMS_ITS | Encounter Summary ---
Author Organization [facility] Address [address] [place] [address] Care Team Providers Care Bark Tanner Name Role Phone Unavailable Primary Care Provider Unavailabl e Encounter Details Date Type Department Care Team (Late st Contact Info) Description 06/19/2020 13:00 EST Phlebotomy Only [facility] ED Center 2 Phlebotomy [address] [place] [address] Jig Worker, Acc Phlebotomy of unknown anatomic location (Primary [...] in this encounter Progress Notes * Kylah Jimenes [...] Quant, 108(H) <5 mIU/ml 06/19/2020 14:[address] [facility] Comment: NOTE: : [...] & BLOOD GAS ORD ERABLES Final Result [facility] [address] [place] [address] documented in this encounter Visit Diagnoses Diagnosis of unknown anatomic location- Primary state, incidental documented in this encounter
--- OUTSIDE RECORDS SUMMARY | 2024-05-31 00:43 | XMS_ITS | Encounter Summary ---
Author Organization [facility] Address [address] [place] [address] Care Team Providers Care Coil Winder Name Role Phone Unavailable Primary Care [...]
--- OUTSIDE RECORDS SUMMARY | 2024-05-31 00:43 | XMS_ITS | Encounter Summary ---
Author Organization [facility] Address [address] [place] [address] Care Team Providers Care Line Servicer Name Role Phone Unavailable Primary Care Provider [...]
--- OUTSIDE RECORDS SUMMARY | 2024-05-31 00:43 | XMS_ITS | Encounter Summary ---
Author Organization [facility] Address [address] [place] [address] Care Team Providers Care Processing Talc And Borate Supervisor Name Role Phone Unavailable Primary Care Provider Unavailabl e Reason for Visit * Auth/Cert Specialty Diagnoses / Procedures Referred By Kit t Referred To Contact Diagnoses Encounter for sterilization Procedures TN LAP,RMV ADNEXAL STRUCTURE Laparoscopic Bilateral Salpingectomy Referral ID Status Reason Start Date Expiration Date Visits Re quested Visits Authorized [id number] 1 1 Encounter Details Date Type Department Care Team (Late st Contact Info) Description 06/16/2020 16:00 EST Anesthesia Event [facility] OR [address] [place], [place] [id number] Mushtaq Vuong MD [address] [facility], Level 2 [place] [phone] Elliott Skinner MD Anesthesia Record Procedure Summary [...] Barahona RN 08/06/20 0414 by Nanda Gibson, telephonic case manager 03/10/20; Abrasion; Right, Plantar; N; Partial thickness; 08/06/20; 0414 03/10/20 0000 by Mallorie Hayward RN 08/06/20 0414 by Nanda Gibson, MARCELO Peripheral IV 05/03/20; 2155; 20; Left; Antecubital; Inserted by RN; 1; 3.15% Chlorhexidine with IPA; 06/23/20; 0854; Removing documentation only, patient arrived without; No complications 05/03/20 215 by Ministerio Crowley RN 06/23/20 0854 by Marychuy aKufman Wound 05/04/20; 0020; [place] eti ul; Left, [...] of Assessment Author No 05/04/2020 0:28 EST Futty, Sylvia , RN * Do you have serious difficulty [...] Sylvia Alejandro RN documented in this encounter OR Notes * Anesthesia Postprocedure Evaluation - Carrington Pete CRNA - 06/16/2020 1644 EST Patient: Stella A Young Vital signs were reviewed with the recovery nurse. Complete vitals history is available in the Epicflowsheets. Vitals Value Taken Time BP 06/16/20 1644 [...] 06/13/2020 9:49 Version 1 of 1 Cristy Bhupendra Luo has been instructed as follows regarding [...] protocol. Patient will call GUSTAVO Collado (Diabetes TILE TRIMMER) for any further questions regarding diabetes management [...] instruct them to call us back at [phone] to report symptoms (If patient is in [...] 1 dose, On Tue06/16/20 at 1445, Routine, PreprocedureIndications:Os teomyelitis of left foot, unspecified type (HCC-CMS) Given 06/16/2020 16:13 EST 2,000 mg fentaNYL [...]
--- OUTSIDE RECORDS SUMMARY | 2024-05-31 00:44 | XMS_ITS | Encounter Summary ---
Author Organization [facility] Address [address] [place] [address] Care Team Providers Care Facility Maintenance Supervisor Name Role Phone Unavailable Primary Care Provider Unavailabl e Reason for Visit * Reason Comments Foot Problem Encounter Details Date Type Department Care Team (Late st Contact Info) Description 05/06/2020 10:30 EST Office Visit [facility] Ankle Program - [address] [place] [address] Elza Navarro DPM [address] [place] [phone] Ulcer of great toe, left, with necrosis of bone ([facility]) (Primary Dx); Type 2 diabetes mellitus with diabetic polyneuropathy, with long-term current use of insulin ([facility]) Social History Tobacco Use Types Packs/Day [...] Progress Notes * Elza Navarro DPM - 05/06/2020 1030 EST Cristy Bhupendra Luo is a very pleasant 35 y.o. [...] the great toe. She had to leave [facility] due to childcare issues at home. She [...] diabetes mellitus with left diabetic foot ulcer ([facility]) 05/03/2020 Priority: Medium ??? Osteomyelitis of great toe of left foot ([facility]) 03/12/2020 Priority: Medium ??? Diabetic foot ulcer associated with diabetes mellitus due to underlying condition ([facility]) 03/07/2020 Priority: Medium ??? Diabetic foot infection ([facility]) 03/06/2020 Priority: Medium ??? Diabetic foot ulcer ([facility]) 03/06/2020 Priority: Medium ??? Cellulitis of great toe of left foot 11/26/2019 Priority: Medium ??? Chronic midline low back pain without sciatica 11/26/2019 Priority: Medium ??? Chronic left ear pain 09/04/2015 Priority: Medium ??? Encounter for sterilization 11/20/2019 ??? Family history of rheumatoid arthritis 09/04/2015 ??? Type 2 diabetes mellitus ([facility]) 09/03/2015 ??? Anxiety and depression 05/12/2010 ??? Migraine with aura and without status migrainosus, not intractable Past Medical History: Diagnosis Date ??? Anxiety ??? Arthritis 12/05/19- Spine- told years ago ??? Diabetes ([facility]) A1c 10.3 on 11/28/2019 ??? History of [...] 27 mL 3 ??? lancets One Touch Quirky or other brand compatible with lancing device [...] great toe, left, with necrosis of bone (HCC-CMS) 2. Type 2 diabetes mellitus with diabetic polyneuropathy, with long-term current use of insulin ([facility]) No orders of the defined types [...] weeks and thiswill be managed by Dr. Lihgt. She is going to continue with the [...] with speech recognition software or keyboard data quality consultant techniques. Minor irregularities or keyboarding misprints may be present documented in this encounter Plan of Treatment Not on file documented as of this encounter Visit Diagnoses Diagnosis Ulcer of great toe, left, with necrosis of bone ([facility])- Primary Type 2 diabetes mellitus with diabetic polyneuropathy, with long-term current use of insulin ([facility]) documented in this encounter Discontinued Medications Medication Sig Discontinue Reason Start Date End Da te AMOXICILLIN ORAL Take by mouth 2 times daily. Error 05/06/2020 documented as of this encounter Historical Medications * This list may reflect changes made after this encounter. amoxicillin-clavu lanate (AUGMENTIN) 875-125 mg per tablet Take 1 Tab by mouth every 12 hours. 06/25/2020 AMOXICILLIN ORAL Take by mouth 2 times daily. 05/06/2020 added in this encounter
--- OUTSIDE RECORDS SUMMARY | 2024-05-31 00:44 | XMS_ITS | Encounter Summary ---
Author Organization [facility] Address [address] [place] [address] Care Team Providers Care Therapeutic Recreation Leader Name Role Phone Carrington Calderon MD Primary Care Provi anders Abigail Díaz Unavailable Carmelo Hendrickson Unavailable Unavailable Abigail Díaz Unavailable Encounter Details Date Type Department Care Team (Late st Contact Info) Description 06/23/2020 Lab Requisition [facility] Pathology & Laboratory Medicine - [address] [address] Mushtaq Light, DO 111 [facility], [address] 5 [place] [phone] Other chronic hematogenous osteomyelitis, left ankle and [...] EST) % Neutrophils 48.0 % 07/03/2020 12:50 [facility] % Bands 1.0 % 07/03/2020 12:50 [facility] % Lymphocytes 40.0 % 07/03/2020 12:50 [facility] % Atypical Lymphocytes 4.0 % 07/03/2020 12:50 [facility] % Monocytes 5.0 % 07/03/2020 12:50 [facility] % Eosinophils 1.0 % 07/03/2020 12:50 [facility] % Basophils 1.0 % 07/03/2020 12:50 [facility] Absolute Neutrophils 6.40 2.20 - 8.85 K/cmm 07/03/2020 12:50 [facility] Absolute Bands 0.13 K/cmm 07/03/2020 12:50 [facility] Absolute Lymphocytes 5.33(H) 1.09 - 3.30 K/cmm 07/03/2020 12:50 [facility] Absolute Atypical Lymphocytes 0.53 K/cmm 07/03/2020 12:50 [facility] Absolute Monocytes 0.67 0.10 - 0.80 K/cmm 07/03/2020 12:50 [facility] Absolute Eosinophils 0.13 0.03 - 0.61 K/cmm 07/03/2020 12:50 [facility] ABS Basophils 0.13(H) 0.01 - 0.11 K/cmm 07/03/2020 12:50 [facility] Blood VENOUS BLOOD / Unknown 04/15/2020 11:28 EST 06/23/2020 15:27 EST Mushtaq Light DO HEMATOLOGY & PF4 ORDERABLES Final Result Performing Organization Address City/[facility]/ZIP Co de Phone Number [facility] [address] [place] [address] * (ABNORMAL) SED. RATE:ILEANAERGREN (04/15/2020 11:28 EST) Sed Rate 25(H) 0 - 20 mm/hr 07/03/2020 12:51 [facility] Blood VENOUS BLOOD / Unknown 04/15/2020 11:28 EST 06/23/2020 15:27 EST Mushtaq Light DO HEMATOLOGY & PF4 ORDERABLES Final Result Performing Organization Address City/[facility]/ZIP Co de Phone Number [facility] [address] [place] [address] * (ABNORMAL) COMPLETE BLOOD COUNT AND DIFFERENTIAL (04/15/2020 11:28 EST) WBC 13.33(H) 4.00 - 12.40 K/cmm 07/03/2020 12:50 [facility] RBC 4.38 3.86 - 5.04 M/cmm 07/03/2020 12:50 [facility] Hemoglobin 13.5 11.6 - 15.2 gm/dL 07/03/2020 12:50 [facility] HCT 38.6 34.9 - 44.4 % 07/03/2020 12:50 [facility] MCV 88 81 - 98 fl 07/03/2020 12:50 [facility] MCH 30.8 26.7 - 33.3 pg 07/03/2020 12:50 [facility] MCHC 35.0 32.1 - 35.9 gm/dL 07/03/2020 12:50 [facility] RDW-CV 12.5 <14.7 % 07/03/2020 12:50 [facility] RDW-SD 40.6 <50.4 fl 07/03/2020 12:50 [facility] PLT 344 141 - 377 K/cmm 07/03/2020 12:50 [facility] MPV 9.8 9.5 - 12.7 fl 07/03/2020 12:50 [facility] Type of Differential: Manual 07/03/2020 12:50 [facility] Blood VENOUS BLOOD / Unknown 04/15/2020 11:28 EST 06/23/2020 15:27 EST Mushtaq Light DO PACKAGES & DNA PROBE ORDERA BLES Final Result [facility] [address] [place] [address] * (ABNORMAL) CREATININE (04/15/2020 11:28 EST) Creatinine 0.43(L) 0.52 - 1.04 mg/dL 06/30/2020 12:01 [facility] eGFR 132 >60 mL/min/1.7 3m2 06/30/2020 12:01 [facility] Comment:eGFR calculated gil curtis CKD-EPI equation for non- Americans. Multiply eGFR by 1.16 for patients. Blood VENOUS BLOOD / Unknown 04/15/2020 11:28 EST 06/23/2020 15:27 EST us Mushtaq Light DO CHEMISTRY & BLOOD GAS ORDER HAILEY Final Result Performing Organization Address City/[facility]/ZIP Co de Phone Number [facility] [address] [place] [address] * C REACTIVE PROTEIN (04/15/2020 11:28 EST) C-Reactive Protein <7.0 <10.0 mg/L 06/30/2020 12:01 EST [facility] Blood VENOUS BLOOD / Unknown 04/15/2020 11:28 EST 06/23/2020 15:27 EST us Mushtaq Light DO CHEMISTRY & BLOOD GAS ORDER HAILEY Final Result Performing Organization Address [facility] Co de Phone Number [facility] [address] [place] [address] documented in this encounter Visit Diagnoses Diagnosis Other chronic hematogenous osteomyelitis, left ankle and foot (HCC-CMS) documented in this encounter Additional Health Concerns Infection Onset Date Last Indicated Resolved Time R/O COVID-19 08/04/2020 08/04/2020 08/04/2020 11:4 0 EST documented as of this encounter Care Teams Therapeutic Recreation Leader Relationship Specialty Start Date End Date Carrington Calderon MD 1 [facility] [address] [place] [phone] PCP - General Internal Medicine - Primary Care 12/09/20 Abigail Díaz Dobie Worker 04/21/23 01/03/24 Carmelo Hendrickson Coordinator 12/01/23 Abigail Díaz Dobie Worker 01/04/24 documented as of this encounter
--- OUTSIDE RECORDS SUMMARY | 2024-05-31 00:44 | XMS_ITS | Encounter Summary ---
Author Organization [facility] Address [address] [place] [address] Care Team Providers Care Diabetic Educator Name Role Phone Unavailable Primary Care [...]
--- OUTSIDE RECORDS SUMMARY | 2024-05-31 00:44 | XMS_ITS | Encounter Summary ---
Author Organization [facility] Address [address] [place] [address] Care Team Providers Care Medical Office Representative Name Role Phone Unavailable Primary Care [...] hearing? Answer Date of Assessment Author No 03/06/2020 23:00 EDT John Smith RN * Are you blind or do you have serious difficulty seeing, even when wearing glasses? Answer Date of Assessment Author No 03/06/2020 23:00 EDT John Smith RN * Do you have serious difficulty walking or climbing stairs? (5 years old or older) Answer Date of Assessment Author No 03/06/2020 23:00 EDT John Smith RN * Because of a physical, mental, or emotional condition, do you have difficulty doing errands alone such as visiting a doctor's office or shopping? (15 years old or older) Answer Date of Assessment Author No 03/06/2020 23:00 EDT John Smith RN documented as of this encounter Mental Status * Because of a physical, mental, or emotional condition, do you have serious difficulty concentrating, remembering, or making decisions? (5 years old or older) Answer Entry Date Author No 03/06/2020 23:00 John Ugalde RN documented in this encounter Plan of Treatment Not on file documented as of this encounter Visit Diagnoses Not on filedocumented in this encounter
--- OUTSIDE RECORDS SUMMARY | 2024-05-31 00:44 | XMS_ITS | Encounter Summary ---
Author Organization [facility] Address [address] [place] [address] Care Team Providers Care Front Loader Residential Driver Name Role Phone Unavailable Primary Care Provider Unavailabl e Encounter Details Date Type Department Care Team ([facility] Contact Info) Description 05/12/2020 Documentation Visit [facility] - [address] [place], [place] [address] Marcel Bustamante Social History Tobacco Use Types [...] documented in this encounter Progress Notes * Marcel Bustamante - 05/12/2020 1616 EST Patient: Cristy Luo is a 35 y.o. female. Allergies: Citalopram, Other - see comments, and Advil [ibuprofen] LDA: Peripheral IV 05/03/202154 Left Antecubital (Active) Assessment: Discharge Date: 04/16/20 [...]
--- OUTSIDE RECORDS SUMMARY | 2024-05-31 00:44 | XMS_ITS | Encounter Summary ---
Author Organization [facility] Address [address] [place] [address] Care Team Providers Care Animal Groomer Name Role Phone Unavailable Primary Care Provider Unavailabl e Reason for Visit * Reason Onset Date Comments Abnormal Lab 05/05/2020 Encounter Details Date Type Department Care Team ([facility] st Contact Info) Description 05/05/2020 Telephone [facility] [address] [address] Shari Grider, DO [address] [place] [address] Abnormal Lab Social History Tobacco Use Types [...] Miscellaneous Notes * Telephone Encounter - Shari Grider, - 05/05/2020 8288 EST Lab called with critical result - blood culture positive for gram positive bacilli at 37 hours in 1/2 aerobic bottles. Case discussed with Dr. You who notes patient was well-appearing when she left AMA last night. Will check in with her tomorrow AM and let her outpatient care team know. Shari Grider DO 05/05/20 22:20 Family Medicine PGY-3 Pager #[phone] documented in this encounter Plan of Treatment Not on file documented as of this encounter Visit Diagnoses Not on filedocumented in this encounter
--- OUTSIDE RECORDS SUMMARY | 2024-05-31 00:44 | XMS_ITS | Encounter Summary ---
Author Organization [facility] Address [address] [place] [address] Care Team Providers Care Yard Switcher Name Role Phone Unavailable Primary Care Provider Unavailabl e Reason for Visit * Reason Onset Date Comments Home Health 04/01/2020 Telemedicine Video Visit 04/01/2020 Encounter Details Date Type Department Care Team (Late st Contact Info) Description 04/01/2020 Telephone [facility] Adult Primary Care [address] [phone] Tonja Alejandro PA-C [address] [place] [address] [place] [phone] Home Health; Telemedicine Video Visit Social [...] Answer Entry Date Author No 03/06/2020 23:00 EDT John Smith RN documented in this encounter Miscellaneous Notes * Telephone Encounter - Janette Littlejohn - 04/02/2020 1120 EDT Patient's televideo information sent to patient. Zoom appt ID: [id number] pw: [id number] * Telephone Encounter - Jesi Lua RN [...] number since her discharge on 03/12/20. She sawLaura Ramon DPM on 03/25/20 and pt states [...] 04/01/2020 1635 EDT Kylah is calling from [facility] to state patient is frustrated [...]
--- OUTSIDE RECORDS SUMMARY | 2024-05-31 00:44 | XMS_ITS | Encounter Summary ---
Author Organization [facility] Address [address] [place] [address] Care Team Providers Care Developing Machine Tender Name Role Phone Unavailable Primary Care Provider Unavailabl e Encounter Details Date Type Department Care Team ([facility] Contact Info) Description 03/31/2020 Documentation Visit [facility] - [address] [place], [place] [phone] Mina Peng RN Social History Tobacco Use [...] John Smith RN documented in this encounter Progress Notes * Mina Peng RN - 03/31/2020 0955 EDT Patient: Cristy Luo is a 35 [...] 04/01. MINA PENG RN 03/31/2020 10:11 * Xander Wild Guido, [facility] - 03/31/2020 0955 EDT Patient: Cristy Luo is a 35 [...] HH nurse and/or MD. Contact MD. Subjective: Response [...] Will deliver to patients home tomorrow via [employer]. Will continue to monitor per care plan and reassess next week. GUIDO LI RPH 03/31/2020 16:11 documented in this encounter Plan of Treatment Not on file documented as of this encounter Visit Diagnoses Not on filedocumented in this encounter
--- OUTSIDE RECORDS SUMMARY | 2024-05-31 00:44 | XMS_ITS | Encounter Summary ---
Author Organization [facility] Address [address] [place] [address] Care Team Providers Care Health/Safety Job Titles Name Role Phone Unavailable Primary Care Provider Unavailabl e Reason for Visit * Reason Onset Date Comments Home Health 04/01/2020 Encounter Details Date Type Department Care Team (Late st Contact Info) Description 04/01/2020 Telephone [facility] Infectious Disease - [address] [phone] Mushtaq Light, DO [address] [facility], [address] [place] [address] Home Health Social History Tobacco [...] Date of Assessment Author No 03/06/2020 23:00 WANDAT John Smith RN * Do you have [...] Date of Assessment Author No 03/06/2020 23:00 WANDAT John Smith RN documented as of this encounter Mental Status * Because of a physical, mental, or emotional condition, do you have serious difficulty concentrating, remembering, or making decisions? (5 years old or older) Answer Entry Date Author No 03/06/2020 23:00 EDT John Smith RN documented in this encounter Miscellaneous Notes * Telephone Encounter - Smita Green - 04/01/2020 3997 EDT Kylah from [facility] states that she did picc dressing change and clave, but was not able to get the extension tubing off. Would like a call back with plan. [phone]. documented in this encounter Plan of Treatment Not on file documented as of this encounter Visit Diagnoses Not on filedocumented in this encounter
--- OUTSIDE RECORDS SUMMARY | 2024-05-31 00:44 | XMS_ITS | Encounter Summary ---
Author Organization [facility] Address [address] [place] [address] Care Team Providers Care Learning And Development Officer Name Role Phone Unavailable Primary Care Provider Unavailabl e Reason for Visit * Reason Comments Follow-up Encounter Details Date Type Department Care Team (Late st Contact Info) Description 04/03/2020 13:30 EDT Telemedicine [facility] Infectious Disease - [address] [address] Tonja Plascencia NP 111 [facility], [address] [place] [address] Osteomyelitis of great toe of [...] Date of Assessment Author No 03/06/2020 23:00 John Ugalde RN * Are you blind or do you have serious difficulty seeing, even when wearing glasses? Answer Date of Assessment Author No 03/06/2020 23:00 John Ugalde RN * Do you have serious difficulty walking or climbing stairs? (5 years old or older) Answer Date of Assessment Author No 03/06/2020 23:00 John Ugalde RN * Because of a physical, mental, or emotional condition, do you have difficulty doing errands alone such as visiting a doctor's office or shopping? (15 years old or older) Answer Date of Assessment Author No 03/06/2020 23:00 John Ugalde RN documented as of this encounter Mental Status * Because of a physical, mental, or emotional condition, do you have serious difficulty concentrating, remembering, or making decisions? (5 years old or older) Answer Entry Date Author No 03/06/2020 23:00 John Ugalde RN documented in this encounter Progress Notes * Tonja Plascencia APRN - 04/03/2020 1330 EDT Due to computer system disruption, additional clinical information for this visit is Scanned Note. For patients, please refer to guidance in [facility] on how to locate information. Generally this information will appear as a scanned documents saved in My Documents activity. documented in this encounter Plan of Treatment Not on file documented as of this encounter Visit Diagnoses Diagnosis Osteomyelitis of great toe of left foot (HCC-CMS)- Primary documented in this encounter
--- OUTSIDE RECORDS SUMMARY | 2024-05-31 00:44 | XMS_ITS | Encounter Summary ---
Author Organization [facility] Address [address] [place] [address] Care Team Providers Care Figurine Maker Name Role Phone Unavailable Primary Care Provider Unavailabl e Reason for Visit * Reason Onset Date Comments Home Health 03/25/2020 Encounter Details Date Type Department Care Team (Late st Contact Info) Description 03/25/2020 Telephone [facility] Adult Primary Care - [address] [phone] Tonja Alejandro PA-C [facility] [address] [place] [phone] Home Health Social History Tobacco Use [...] - 03/25/2020 1606 EDT Kylah called from [facility] stating Patients Heart Rate has been elevated at 100-120 per min documented in this encounter Plan of Treatment Not on file documented as of this encounter Visit Diagnoses Not on filedocumented in this encounter
--- OUTSIDE RECORDS SUMMARY | 2024-05-31 00:44 | XMS_ITS | Encounter Summary ---
Author Organization [facility] Address [address] [place] [address] Care Team Providers Care Director Of Training Name Role Phone Unavailable Primary Care [...]
--- OUTSIDE RECORDS SUMMARY | 2024-05-31 00:44 | XMS_ITS | Encounter Summary ---
Author Organization [facility] Address [address] [place] [address] Care Team Providers Care Trim Operator Name Role Phone Unavailable Primary Care Provider Unavailabl e Reason for Visit * Reason Onset Date Comments Labs Only 06/05/2020 covid pre op scr eening Encounter Details Date Type Department Care Team (Late st Contact Info) Description 06/05/2020 Orders Only [facility] Foot & Ankle Program - [address] [address] Elza Navarro DPM [address] [place] [address] Osteomyelitis of left foot, unspecified type ([facility]) (Primary Dx) Social History Tobacco [...] rt-PCR Result Negative Negative 06/09/2020 16:34 EST [facility] Comment: This test has [...] history, and epidemiological information. Performed on the [employer] Fusion instrument Performing Lab [facility] 06/09/2020 16:34 EST [facility] Swab ENTIRE NASOPHARYNX / Unknown Swab / Unknown 06/09/2020 9:28 EST 06/09/2020 9:28 EST us Elza Navarro DPM MICROBIOLOGY - GENERAL ORDERABL ES Final Result [facility] [address] [place] [address] documented in this encounter Visit Diagnoses Diagnosis Osteomyelitis of left foot, unspecified type ([facility])- Primary documented in this encounter
--- OUTSIDE RECORDS SUMMARY | 2024-05-31 00:44 | XMS_ITS | Encounter Summary ---
Author Organization [facility] Address [address] [place] [address] Care Team Providers Care Warp Trucker Name Role Phone Unavailable Primary Care Provider Unavailabl e Reason for Visit * Reason Comments Follow-up Encounter Details Date Type Department Care Team (Latest Contact Info) Description 04/07/2020 10:[address] [facility] [place] [address] Nurse, Id, RN Osteomyelitis of great toe [...] in this encounter Progress Notes * Siobhan Bullard [...]
--- OUTSIDE RECORDS SUMMARY | 2024-05-31 00:44 | XMS_ITS | Encounter Summary ---
Author Organization [facility] Address [address] [place] [address] Care Team Providers Care Mold Repairer Name Role Phone Unavailable Primary Care Provider Unavailabl e Reason for Visit * Reason Comments Follow-up Encounter Details Date Type Department Care Team (Late st Contact Info) Description 04/18/2020 10:30 EST Office Visit [facility] Foot & Ankle Program - [address] [address] Elza Navarro DPM [address] [place] [phone] Ulcer of great toe, left, with necrosis of bone ([facility]) (Primary Dx); Type 2 diabetes mellitus with diabetic polyneuropathy, with long-term current use of insulin ([facility]) Social History Tobacco Use Types Packs/Day Years [...] Progress Notes * Elza Navarro DPM - 04/18/2020 0000 EST [facility] FOOT AND ANKLE PROGRAM PROGRESS / [...] Elza Navarro DPM / SWAPNIL Dictation ID: [id number] cc: documented in this encounter Plan of Treatment Not on file documented as of this encounter Visit Diagnoses Diagnosis Ulcer of great toe, left, with necrosis of bone ([facility])- Primary Type 2 diabetes mellitus with diabetic polyneuropathy, with long-term current use of insulin ([facility]) documented in this encounter
--- OUTSIDE RECORDS SUMMARY | 2024-05-31 00:44 | XMS_ITS | Encounter Summary ---
Author Organization [facility] Address [address] [place] [address] Care Team Providers Care Supervisor Finishing Department Name Role Phone Unavailable Primary Care Provider Unavailabl e Reason for Visit * Reason Comments Telemedicine Video Visit Encounter Details Date Type Department Care Team (Late st Contact Info) Description 03/27/2020 13:30 EDT Telemedicine [facility] Infectious Disease - [address] [id number] Tonja Plascencia NP [address] [facility], [address] [place] [address] Osteomyelitis of great toe of [...] in this encounter Progress Notes * Tonja Plascencia, DOUGHNUT ICER - 03/27/2020 1330 EDT Infectious Disease Clinic [...] encounter visit: Tonja Plascencia ?? Patient location: [place], State: [place] Estimated driving distance from [place]: 25 miles. Demographics HPI: Cristy Luo [...]
--- OUTSIDE RECORDS SUMMARY | 2024-05-31 00:44 | XMS_ITS | Encounter Summary ---
Author Organization [facility] Address [address] [place] [address] Care Team Providers Care It Support Consultant Name Role Phone Unavailable Primary Care Provider Unavailabl e Reason for Visit * Reason Comments Foot Problem * Follow Up (Routine/Next Available) - Receiving Office to Obtain Authorization Specialty Diagnoses / Procedures Referred By Kit goode Referred To Contact Podiatry Diagnoses Diabetic foot ulcer ([facility]) Carrington Mari MD [address] [place] [address] Phone: tel: fax: [facility] [address] [place] [address] Phone: tel: fax: Referral ID Status Reason Start Date Expiration Date Visits Requested Visits Authorized [id number] Receiving Office to Obtain Authorization Specialty Services Required 0 1 1 Encounter Details Date Type Department Care Team (Late st Contact Info) Description 05/14/2020 14:30 EST Office Visit [facility] Foot & Ankle Program - [address] [place] [address] Elza Navarro DPM [address] [place] [phone] Ulcer of great toe, left, with necrosis of bone ([facility]) (Primary Dx); Type 2 diabetes mellitus with diabetic polyneuropathy, with long-term current use of insulin ([facility]) Social History Tobacco Use Types Packs/Day [...] this encounter Progress Notes * Elza Navarro Dickson, DPM - 05/14/2020 1430 EST Images from the original note were [...] shoe andinsole. She has been taking the vvufgrejrus-Pbuqxlfqi-bvrvcqv any issues. She has been changing thedressing daily. Overall she is feeling well today. She denies pain in the toe. She denies nausea, vomiting, fever, chills. Patient Active Problem List Diagnosis Date Noted ??? 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 ([facility]) 05/03/2020 Priority: Medium ??? Osteomyelitis of great toe of left foot ([facility]) 03/12/2020 Priority: Medium ??? Diabetic foot ulcer associated with diabetes mellitus due to underlying condition ([facility]) 03/07/2020 Priority: Medium ??? Diabetic foot infection ([facility]) 03/06/2020 Priority: Medium ??? Diabetic foot ulcer ([facility]) 03/06/2020 Priority: Medium ??? Cellulitis of great toe of left foot 11/26/2019 Priority: Medium ??? Chronic midline low back pain without sciatica 11/26/2019 Priority: Medium ??? Chronic left ear pain 09/04/2015 Priority: Medium ??? Encounter for sterilization 11/20/2019 ??? Family history of rheumatoid arthritis 09/04/2015 ??? Type 2 diabetes mellitus ([facility]) 09/03/2015 ??? Anxiety and depression 05/12/2010 ??? Migraine with aura and without status migrainosus, not intractable Past Medical History: Diagnosis Date ??? Anxiety ??? Arthritis 12/05/19- Spine- told years ago ??? Diabetes ([facility]) A1c 10.3 on 11/28/2019 ??? History [...] 27 mL 3 ??? lancets One Touch [employer] or other brand compatible with lancing device [...] with necrosis of bone ([facility]) 2. Type 2 diabetes mellitus with diabetic polyneuropathy, with long-term current use of insulin ([facility]) No orders of the defined types [...] with speech recognition software or keyboard data capture clerk techniques. Minor irregularities or keyboarding misprints may be present documented in this encounter Plan of Treatment Not on file documented as of this encounter Visit Diagnoses Diagnosis Ulcer of great toe, left, with necrosis of bone ([facility])- Primary Type 2 diabetes mellitus with diabetic polyneuropathy, with long-term current use of insulin ([facility]) documented in this encounter
--- OUTSIDE RECORDS SUMMARY | 2024-05-31 00:44 | XMS_ITS | Encounter Summary ---
Author Organization [facility] Address [address] [place] [address] Care Team Providers Care Credit Or Loans Officer Name Role Phone Unavailable Primary Care [...]
--- OUTSIDE RECORDS SUMMARY | 2024-05-31 00:44 | XMS_ITS | Encounter Summary ---
Author Organization [facility] Address [address] [place] [address] Care Team Providers Care Litigation Services Manager Name Role Phone Unavailable Primary Care Provider Unavailabl e Reason for Visit * Reason Comments Toe Injury diabetic foot ulcer on right great toe. admitted in march for IV abx x1week and then d/c with PO abx [id number]. last night noticed swelling, increased pain, redness and drainage from ulcer. dressed prior to arrival. unable to bear weight * Auth/Cert Specialty Diagnoses / Procedures Referred By Contac t Referred To Contact Diagnoses Diabetic foot infection ([facility]) 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 ([facility]) Referral ID Status Reason Start Date Expiration Date Visits Re quested Visits Authorized [id number] 1 1 Encounter Details Date Type Department Care Team (Late st Contact Info) Description 05/03/2020 21:20 EST - 05/04/2020 20:27 [facility] Hospital Encounter [facility] [address] [id number] Fran Barbosa MD 111 [facility], Level [address] [place] [address] Lalito You MD MPH [address] [phone] Obi Hancock MD [address] [phone] Diabetic foot infection (HCC-CMS) (Primary Dx); Type [...] Date of Assessment Author No 05/04/2020 0:28 Lizz Alejandro RN * Are you blind or do you have serious difficulty seeing, even when wearing glasses? Answer Date of Assessment Author No 05/04/2020 0:28 Lizz Alejandro RN * Do you have serious difficulty walking or climbing stairs? (5 years old or older) Answer Date of Assessment Author No 05/04/2020 0:28 Lizz Alejandro RN * Do you have difficulty dressing or bathing? (5 years old or older) Answer Date of Assessment Author No 05/04/2020 0:28 Lizz Alejandro RN * Because of a physical, mental, or emotional condition, do you have difficulty doing errands alone such as visiting a doctor's office or shopping? (15 years old or older) Answer Date of Assessment Author No 05/04/2020 0:28 Lizz Alejandro RN documented as of this encounter Mental Status * Because of a physical, mental, or emotional condition, do you have serious difficulty concentrating, remembering, or making decisions? (5 years old or older) Answer Entry Date Author No 05/04/2020 0:28 Lizz Alejandro RN documented in this encounter Discharge Summaries * Obi Hancock MD - 05/04/2020 9559 EST Medicine Discharge Summary Primary Care Provider: Tonja Alejandro Attending Physician: Obi Hancock MD Admit Date: 05/03/2020 Discharge Date: 05/04/20 Disposition: Home Reason for Admission: left foot pain Principal/Final Diagnosis: Sepsis secondary to diabetic foot infection ([facility]) with osteomyelitis Additional Problems Managed in the Hospital Active Hospital Problems Diagnosis Date Noted ??? *Diabetic foot infection ([facility]) 03/06/2020 ??? 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 ([facility]) 05/03/2020 Resolved Hospital Problems No resolved problems [...] lantus (22 units at bedtime) - Continue [facility] [employer] gabapentin 100mg TID Hospital Course: Mrs. Cristy Luo??is a 35 year old??female??with a past medical history notable for insulin-dependent T2DM (c/b peripheral neuropathy and diabetic foot ulcer), recurrent migraine, TERI/MDD admitted 05/03/20 for worsening left foot pain, suspicious for recurrent diabetic foot infection. Of note, patient was recent admitted to [facility] for management of left great toe osteomyelitis between 03/06/20 to 03/12/20. During that time, she was started on cefazolin IV and metronidazole for six weeks. She completed her antibiotic course outpatient on 04/20/20. She complained of no symptoms during that time. On the night of 05/02/20, she noted worsening left foot pain and swelling after spending the day decorating her home for B-152. She subsequently went to the [facility] ED for further evaluation. On admission, she [...] Component Value Units Date/Time Bacterial Culture, Blood [[id number]] Collected: 05/04/20 0540 Lab Status: In process Specimen: Blood, Venous Updated: 05/04/20 0733 Bacterial Culture, Blood [[id number]] Collected: 05/04/2047 Lab Status: In process Specimen: Blood, Venous Updated: 05/04/20 0733 Hemoglobin A1c [[id number]] Collected: 05/03/202137 Lab Status: In process Specimen: Blood, Venous Updated: 05/04/20 0043 Upcoming Appointments May 14, 2020 14:30 Office Visit with Elza Navarro DPM [facility] - [facility] (--) [address] [facility] [phone] Follow-up appointments and procedures Amb Consult/Follow Up [...] Testing QID. 100 Each 5 10/01/2019 1 diphenhydrAMINE (BENADRYL) 50 mg capsule Take 1 Cap by mouth as needed for up to 1 dose (hives). 2 Cap 03/12/2020 0 gabapentin (NEURONTIN) 100 mg capsule Take 100 mg by mouth 3 times daily. 0 insulin aspart U-100 (NOVOLOG FLEXPEN) 100 unit/mL [...] patient's insurance. 100 Each 5 10/01/2019 1 sodium chloride 0.9 %, flush, flush syringe For valved catheters (Groshong, Vaxcel, Solo PICC, Mid-line, and Groshong Chest Port): Flush all lumens with 10 mL every week if not in use. Flush 10 mL before and 10 mL after each medication dose (20 mL after vancomycin doses). Flush with 20 mL after blood draws. Dispense quantity sufficient. 1 Box 03/12/2020 0 documented as of this encounter Discharge Disposition [...] spending the day decorating her home for B-152. On further ROS, she denied F/C/S, N/V/D, [...] lantus (22 units at bedtime) - Continue [facility]ANT gabapentin 100mg TID # Chronic Migraine - Continue acetaminophen PRN # Tobacco Use Disorder Reports six cigarettes per day. Refused patches or gum. ?? # Safety Planning - VTE Prophylaxis: Enoxaparin 40mg daily - Code: Full, discussed w patient - Discharge: home - Consults: Infectious Disease RENZO BELL MD 05/04/2020 7:07 ATTENDING ATTESTATION: Date [...] Notes * Sara Banks MD - 05/03/2020 2247 EST Medicine Admission History & Physical Service Date: 05/04/2020 Admit Date: 05/03/2020 21:20 Primary Care Provider: Tonja Alejandro Chief Complaint: Foot pain, left HPI Cristy Luo is a 35 y.o. female with a PMHx of T2DM, diabetic foot ulcers (s/p recent hospitalization for IV abx), migraine, anxiety and depression [facility]. She was [...] for 90 days. ??? lancets [employer] or other brand compatible with lancing device [...] for now: 22U Lantus at bedtime. - O[employer] CONS[employer]ANT gabapentin 100mg TID (just started this 3 days ago) VTE Prophylaxis Pharmacologic Prophylaxis: Enoxaparin (Lovenox) 40 mg SQ daily Code: Full, discussed w patient Discharge Plan Home or self care Consults Infectious Disease Admission Status Inpatient. Anticipated duration of hospitalization is greater than two midnights due to diabetic foot infection. Discussed with Dr. Avelino Banks MD 05/04/2020 0:11 Cosigned by Lalito You MD at 05/04/2020 2:08 EST Associated attestation - Lalito You MD MPH [...] documented in this encounter Consult Notes * Mushtaq Light, DO - 05/04/2020 1059 EST INFECTIOUS DISEASES INITIAL CONSULT Patient: Crisyt Luo : 1985 Service: Medicine Date of [...] weeks of cefazolin 2gm q8h and PO [id number] q8h, with dressing changes and short-interval podiatry [...] 12/05/19- Spine- told years ago ??? Diabetes ([facility]) A1c 10.3 on 11/28/2019 ??? 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 WBC/RBC/HGB/HCT/PLT/ANC13.43/4.27/13.1/38.3/335/-- (05/04 532) Estimated Creatinine Clearance: 185.1 mL/min (A) (by C-G formula based on SCr of 0.46 mg/dL (L)). MICROBIOLOGY DATA: Reviewed in detail in [employer]ISM. Pertinent for: 03/07 left toe (bone): few polys, few MSSA, few GBS, few strep anginosus, moderate prevotella 05/03 covid-19 TAR BOILER swab: negative 05/04 blood: NGTD IMAGING DATA: [...] citalopram (opposite effect) Social history: Lives in [place] with her , 3 foster kids, 1 [...] foot radiographs from 04/25/2020 Assessment: Cristy Luo [id number] 1985 Cristy Luo is a 35 y.o. [...] the AM Ursula Martinez MD 05/03/20 22:37 Cosigned by Josh Charles MD at 05/04/2020 11:16 EST documented in this encounter ED Notes * [...] x1week and then d/c with PO abx [id number]. last night noticed swelling, increased pain, redness [...] afterwards. She is followed by Dr. 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 Last night, patient noticed swelling, increased 9/10 [...] limited to diabetic foot infection and osteomyelitis. (2142) Paged Orthopedic resident. The patient had a [...] Lalito You. Final diagnoses: Diabetic foot infection ([facility]) MDM MDM Number of Diagnoses or Management Options Diabetic foot infection ([facility]) Diagnosis management comments: 5 Amount and/or [...] personally via phone by me. GPBs in 1/4 bottles at 37 hours, suspect contaminant. Dr. Light will review with microbiology lab. * Plan of Care - Lizz Ruiz RN - 05/04/20202010 EST Data: Pt left AMA d/t child care coordinator issues. Action: MD notified and spoke to the pt. Response: Pt signed AMA paperwork, left the unit at 2009. LIZZ RUIZ RN 05/04/2020 20:12 * Plan of Care - Jonelle Sun RN - 05/04/2020 1410 EST Problem: Daily Care Plan Goals Goal: Care Plan Documentation Flowsheets (Taken 05/04/2020 4417) Area of Focus: Discharge Plan Goal This [...] Education provided and verbalized back to this law writer by pt, expressing understanding of teaching. [...] Name Priority Date/Time Associated Diagnosis Comments MR FOREFOOT/MIDFOOT W WO CONTRAST LEFT Routine 05/04/2020 13:26 EST BACTERIAL CULTURE, BLOOD Routine 05/04/2020 5:47 EST BACTERIAL CULTURE, BLOOD Routine 05/04/2020 5:40 EST COMPLETE BLOOD COUNT Routine 05/04/2020 5:32 EST BUN Routine 05/04/2020 5:32 EST CREATININE Routine 05/04/2020 5:32 EST ELECTROLYTES Routine 05/04/2020 5:32 EST ZZCOVID-19 TEST [facility] LAB PCR STAT 05/03/2020 23:59 EST COVID-19 [...] 03/19/2020, there has been interval increase in [id number] in the first proximal phalanx. There is [...] the findings. Gerry Muller MD IMG MRI ORDERABLES Fin al Result * BACTERIAL CULTURE, BLOOD (05/04/2020 5:47 EST) Organism ID No Growth at 5 days 05/09/2020 7:45 EST [facility] Blood VENOUS BLOOD / Unknown Blood Culture / Unknown 05/04/2020 5:47 EST 05/04/2020 7:33 EST Sara Banks MD MICROBIOLOGY - GENERAL ORDERA BLES Final Result [facility] [address] [place] [address] * (ABNORMAL) BACTERIAL CULTURE, BLOOD (05/04/2020 5:40 EST) Organism ID Corynebacterium species(AA) 05/06/2020 14:29 [facility] Comment:Detected in the aero bic bottle at 37 hours Blood VENOUS BLOOD / Unknown Blood Culture / Unknown 05/04/2020 5:40 EST 05/04/2020 7:33 EST us Sara Banks MD MICROBIOLOGY - GENERAL ORDERA BLES Final Result [facility] [address] [place] [id number] * (ABNORMAL) COMPLETE BLOOD COUNT (05/04/2020 5:32 EST) WBC 13.43(H) 4.00 - 12.40 K/cmm 05/04/2020 6:24 [facility] RBC 4.27 3.86 - 5.04 M/cmm 05/04/2020 6:24 [facility] Hemoglobin 13.1 11.6 - 15.2 gm/dL 05/04/2020 6:24 [facility] HCT 38.3 34.9 - 44.4 % 05/04/2020 6:24 [facility] MCV 90 81 - 98 fl 05/04/2020 6:24 [facility] MCH 30.7 26.7 - 33.3 pg 05/04/2020 6:24 [facility] MCHC 34.2 32.1 - 35.9 gm/dL 05/04/2020 6:24 [facility] RDW-CV 12.4 <14.7 % 05/04/2020 6:24 [facility] RDW-SD 40.6 <50.4 fl 05/04/2020 6:24 [facility] PLT 335 141 - 377 K/cmm 05/04/2020 6:24 [facility] MPV 10.0 9.5 - 12.7 fl 05/04/2020 6:24 [facility] Blood VENOUS BLOOD / Unknown Venipuncture / Unknown 05/04/2020 5:32 EST 05/04/2020 6:11 EST Lalito You MD MPH HEMATOLOGY & PF4 ORDERABLES Final Result Performing Organization Address [facility] Co de Phone Number [facility] [address] [place] [address] * (ABNORMAL) CREATININE (05/04/2020 5:32 EST) Creatinine 0.46(L) 0.52 - 1.04 mg/dL 05/04/2020 6:52 EST [facility] eGFR 129 >60 mL/min/1.7 3m2 05/04/2020 6:52 EST [facility] Comment:eGFR calculated gil g CKD-EPI equation for non- Americans. Multiply eGFR by 1.16 for patients. Blood VENOUS BLOOD / Unknown Venipuncture / Unknown 05/04/2020 5:32 EST 05/04/2020 6:22 EST us Lalito You MD MPH CHEMISTRY & BLOOD GAS ORDER HAILEY Final Result Performing Organization Address [facility] Co de Phone Number [facility] [address] [place] [address] * BUN (05/04/2020 5:32 EST) BUN 17 10 - 26 mg/dL 05/04/2020 6:52 EST [facility] Blood VENOUS BLOOD / Unknown Venipuncture / Unknown 05/04/2020 5:32 EST 05/04/2020 6:22 EST us Lalito You MD MPH CHEMISTRY & BLOOD GAS ORDER HAILEY Final Result Performing Organization Address [facility]/ZIP Co de Phone Number [facility] [address] [place] [address] * ELECTROLYTES (05/04/2020 5:32 EST) Sodium 137 136 - 145 mEq/L 05/04/2020 6:52 EST [facility] Potassium 4.4 3.5 - 5.0 mEq/L 05/04/2020 6:52 EST [facility] Chloride 104 96 - 110 mEq/L 05/04/2020 6:52 EST [facility] CO2 Total 24 22 - 32 mEq/L 05/04/2020 6:52 EST [facility] Blood VENOUS BLOOD / Unknown Venipuncture / Unknown 05/04/2020 5:32 EST 05/04/2020 6:22 EST Lalito You MD MPH CHEMISTRY & BLOOD GAS ORDER HAILEY Final Result Performing Organization Address [facility]/ZIP Co de Phone Number [facility] [address] [place] [address] * COVID-19 TEST [facility] PCR (05/03/2020 23:59 EST) Swab ENTIRE NASOPHARYNX / Unknown Swab / Unknown 05/03/2020 23:59 EST 05/04/2020 0:01 EST Fran Barbosa MD MICROBIOLOGY - GENERA L ORDERABLES Final Result Performing Organization Address [facility] Co de Phone Number [facility] [address] [place] [address] * COVID-19 TESTING (05/03/2020 23:59 EST) COVID-19 rt-PCR Result Negative Negative 05/04/2020 9:49 EST [facility] Comment: This test has [...] history, and epidemiological information. Performed on the [employer] [place] Fusion instrument Performing Lab [place] [facility] Lab 05/04/2020 9:49 EST [facility] Swab ENTIRE NASOPHARYNX / Unknown Swab / Unknown 05/03/2020 23:59 EST 05/04/2020 0:01 EST us Fran Barbosa MD MICROBIOLOGY - GENERA L ORDERABLES Final Result [facility] [address] [place] [address] * XR FOOT LEFT 3 OR MORE [...] by downtime. No significant changes to preliminaryreport. us Fran Barbosa MD IMG DIAGNOSTIC IMAGIN G ORDERABLES Final Result * (ABNORMAL) HEMOGLOBIN A1C (05/03/2020 21:38 EST) Hemoglobin A1c 9.1(H) <5.7 % 05/05/2020 8:32 EST [facility] Comment: Glycemic Status References: Normal: [...] Avg Glucose 214 mg/dL 0 8:32 EST [facility] Comment:The eAG represents t he A1c result expressed as average glucose in mg/dL. Blood VENOUS BLOOD / Unknown Venipuncture / Unknown 05/03/2020 21:38 EST 05/03/2020 21:55 EST us Sara Banks MD CHEMISTRY & BLOOD GAS ORDERAB LES Final Result [facility] [address] [place] [address] * (ABNORMAL) SED. RATE:MARLYN (05/03/2020 21:38 EST) Sed Rate 36(H) 0 - 20 mm/hr 05/03/2020 22:09 [facility] Blood VENOUS BLOOD / Unknown Venipuncture / Unknown 05/03/2020 21:38 EST 05/03/2020 21:55 EST Fran Barbosa MD HEMATOLOGY & PF4 ORDE RABLES Final Result Performing Organization Address City/[facility]/ZIP Co de Phone Number [facility] [address] [place] [address] * (ABNORMAL) C REACTIVE PROTEIN (05/03/2020 21:38 EST) C-Reactive Protein 39.2(H) <10.0 mg/L 05/03/2020 22:19 [facility] Blood VENOUS BLOOD / Unknown Venipuncture / Unknown 05/03/2020 21:38 EST 05/03/2020 21:55 EST Fran Barbosa MD CHEMISTRY & BLOOD GAS ORDERABLES Final Result Performing Organization Address City/[facility]/ZIP Co de Phone Number [facility] [address] [place] [address] * (ABNORMAL) COMPLETE BLOOD COUNT AND DIFFERENTIAL (05/03/2020 21:38 EST) WBC 16.98(H) 4.00 - 12.40 K/cmm 05/03/2020 22:03 [facility] RBC 4.38 3.86 - 5.04 M/cmm 05/03/2020 22:03 [facility] Hemoglobin 13.7 11.6 - 15.2 gm/dL 05/03/2020 22:03 [facility] HCT 38.9 34.9 - 44.4 % 05/03/2020 22:03 [facility] MCV 89 81 - 98 fl 05/03/2020 22:03 [facility] MCH 31.3 26.7 - 33.3 pg 05/03/2020 22:03 [facility] MCHC 35.2 32.1 - 35.9 gm/dL 05/03/2020 22:03 [facility] RDW-CV 12.5 <14.7 % 05/03/2020 22:03 [facility] RDW-SD 41.1 <50.4 fl 05/03/2020 22:03 [facility] PLT 365 141 - 377 K/cmm 05/03/2020 22:03 [facility] MPV 9.7 9.5 - 12.7 fl 05/03/2020 22:03 [facility] % Neutrophils 56.7 % 05/03/2020 22:03 [facility] % Lymphocytes 29.4 % 05/03/2020 22:03 [facility] % Monocytes 8.8 % 05/03/2020 22:03 [facility] % Eosinophils 4.4 % 05/03/2020 22:03 [facility] % Basophils 0.5 % 05/03/2020 22:03 [facility] % Immature Grans 0.2 % 05/03/20 20 22:03 [facility] Absolute Neutrophils 9.61(H) 2.20 - 8.85 K/cmm 05/03/2020 22:03 [facility] Absolute Lymphocytes 5.00(H) 1.09 - 3.30 K/cmm 05/03/2020 22:03 [facility] Absolute Monocytes 1.49(H) 0.10 - 0.80 K/cmm 05/03/2020 22:03 [facility] Absolute Eosinophils 0.75(H) 0.03 - 0.61 K/cmm 05/03/2020 22:03 [facility] ABS Basophils 0.09 0.01 - 0.11 K/cmm 05/03/2020 22:03 [facility] Absolute Immature Grans 0.04 0.00 - 0.06 K/cmm 05/03/2020 22:03 [facility] Type of Differential: Auto 05/03/2020 22:03 [facility] Blood VENOUS BLOOD / Unknown Venipuncture / Unknown 05/03/2020 21:38 EST 05/03/2020 21:55 EST us Fran Barbosa MD PACKAGES & DNA PROBE ORDERABLES Final Result [facility] [address] [place] [id number] documented in this encounter Visit Diagnoses Diagnosis [...] diabetic foot infection, ID Consult: No, STAT 9062 (Given - Provider: Mar Aguirre RN) PRN [...] 2 mg 1 05/04/2020 polyethylene glycol 3350 (AL RALAX) packet 17 g 1 05/04/2020 Admission Count Last Ordered Date First Orde red Date ADMIT TO INPATIENT 1 05/03/2020 Transfer Count Last Ordered Date First Orde red Date TEACHING SERVICE 1 05/04/2020 ED BED REQUEST 1 05/03/2020 Discharge Count Last Ordered Date First Orde red Date DISCHARGE PATIENT 1 05/04/2020 documented in this encounter
--- OUTSIDE RECORDS SUMMARY | 2024-05-31 00:44 | XMS_ITS | Encounter Summary ---
Author Organization [facility] Address [address] [place] [address] Care Team Providers Care Director Of Analytical Development Name Role Phone Unavailable Primary Care Provider Unavailabl e Reason for Visit * Reason Onset Date Comments Follow-up 05/05/2020 Encounter Details Date Type Department Care Team (Late st Contact Info) Description 05/05/2020 Telephone [facility] Infectious Disease - [address] [id number] Mushtaq Light, DO [address] [facility], [address] [place] [address] Follow-up Social History Tobacco Use [...] Miscellaneous Notes * Telephone Encounter - Mushtaq Light DO - 05/05/2020 1217 EST Patient had to sign out AMA last evening as she needed assistance with childcare. She is currently back home in [place] is clinically stable. Unfortunately her MRI showed osteomyelitis by report of the great toe. I called in a prescription for Augmentin 875 p.o. twice daily to her pharmacy in [place] and she will pick it up later [...]
--- OUTSIDE RECORDS SUMMARY | 2024-05-31 00:44 | XMS_ITS | Encounter Summary ---
Author Organization [facility] Address [address] [place] [address] Care Team Providers Care Operations Analyst Name Role Phone Unavailable Primary Care [...]
--- OUTSIDE RECORDS SUMMARY | 2024-05-31 00:44 | XMS_ITS | Encounter Summary ---
Author Organization [facility] Address [address] [place] [address] Care Team Providers Care Demand Equipment Repairer Name Role Phone Unavailable Primary Care Provider Unavailabl e Reason for Visit * Reason Comments Diabetes Encounter Details Date Type Department Care Team (Latest Contact Info) Description 04/14/2020 13:30 EST Telemedicine [facility] Adult Primary Care - [address] [phone] Tonja Alejandro PA-C [address] [place] [address] [place] [phone] Polyneuropathy associated with underlying disease (HCC-CMS) [...] documented in this encounter Progress Notes * Zak Hall - 04/14/2020 1330 EST Due to computer system disruption, additional clinical information for this visit is Dictated Note. For patients, please refer to guidance in [employer] on how to locate information. Generally this information will appear as a scanned documents saved in My Documents activity. * Tonja Alejandro PA-C - 04/14/2020 1330 EST [facility] [place] PROGRESS / FOLLOWUP NOTE - 04/14/2020 CONSENT: [...] Tonja Alejandro PA-C / DB Dictation ID: [id number] cc: documented in this encounter Plan of Treatment Not on file documented as of this encounter Visit Diagnoses Diagnosis Polyneuropathy associated with underlying disease (HCC-CMS)- Primary Osteomyelitis of great toe of left foot (HCC-CMS) 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 (HCC-CMS) Type II or unspecified type diabetes mellitus with other specified manifestations, not stated as uncontrolled documented in this encounter
--- OUTSIDE RECORDS SUMMARY | 2024-05-31 00:44 | XMS_ITS | Encounter Summary ---
Author Organization [facility] Address [address] [place] [address] Care Team Providers Care Early Learning Teacher Name Role Phone Unavailable Primary Care Provider Unavailabl e Reason for Visit * Reason Comments Diabetes Encounter Details Date Type Department Care Team (Latest Contact Info) Description 06/05/2020 14:00 EST Telemedicine [facility] Endocrinology - [facility] [address] [place], [place] [id number] Sara Zafar NP [address] [facility] [address] [place] [phone] Type 2 diabetes mellitus with left diabetic [...] APRN - 06/05/2020 1400 EST Subjective: [facility] F/U Note TELEMEDICINE VIDEO [...] Dr. Srinivasan in 2009. 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 Patient reports day before Thanksgiving, family was playing with a blood glucose [...] trimester miscarriages, most recently terminated a at [facility] 10/28/2019. Recurrent loss is attributed to to poorly controlled type 2 diabetes in conjunction with tobacco dependence. She saw TOP PRECIPITATOR OPERATOR HELPER on 11/03/2018, and was advised to [...] siblings, knows about 2, no DM. 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 Previous [...] and send BS. Freestyle Vignesh CGM ordered. [facility]. Novolog to 8-10 units 15 minute [...] with left diabetic foot ulcer ([facility])- Primary Type II or unspecified type diabetes mellitus with other specified manifestations, not stated as uncontrolled Anxiety and depression Dysthymic disorder documented in this encounter Discontinued Medications Medication Sig Discontinue Reason Start Date End Da te gabapentin (NEURONTIN) 100 mg capsule Take 100 mg by mouth 3 times daily. 06/05/2020 documented as of this encounter
--- OUTSIDE RECORDS SUMMARY | 2024-05-31 00:44 | XMS_ITS | Encounter Summary ---
Author Organization [facility] Address [address] [place] [address] Care Team Providers Care Demo Coordinator Name Role Phone Unavailable Primary Care Provider Unavailabl e Reason for Visit * Reason Comments Pain Follow-up Encounter Details Date Type Department Care Team (Late st Contact Info) Description 04/30/2020 8:30 EST Office Visit [facility] Foot & Ankle Program - [address] [address] Elza Navarro DPM [address] [place] [address] Ulcer of great toe, left, with necrosis of bone ([facility]) (Primary Dx); Type 2 diabetes mellitus with diabetic polyneuropathy, with long-term current use of insulin ([facility]) Social History Tobacco Use Types [...] Progress Notes * Elza Navarro DPM - 04/30/2020 0830 EST Images from [...] Osteomyelitis of great toe of left foot ([facility]) 03/12/2020 Priority: Medium ??? Diabetic foot ulcer associated with diabetes mellitus due to underlying condition ([facility]) 03/07/2020 Priority: Medium ??? Diabetic foot infection ([facility]) 03/06/2020 Priority: Medium ??? Diabetic foot ulcer ([facility]) 03/06/2020 Priority: Medium ??? Cellulitis of great toe of left foot 11/26/2019 Priority: Medium ??? Chronic midline low back pain without sciatica 11/26/2019 Priority: Medium ??? Chronic left ear pain 09/04/2015 Priority: Medium ??? Encounter for sterilization 11/20/2019 ??? Family history of rheumatoid arthritis 09/04/2015 ??? Type 2 diabetes mellitus ([facility]) 09/03/2015 ??? Anxiety and depression 05/12/2010 ??? Migraine with aura and without status migrainosus, not intractable Past Medical History: Diagnosis Date ??? Anxiety ??? Arthritis 12/05/19- Spine- told years ago ??? Diabetes ([facility]) A1c 10.3 on 11/28/2019 ??? [...] 27 mL 3 ??? lancets One Touch DelEpoxy or other brand compatible with lancing device [...] great toe, left, with necrosis of bone ([facility]) 2. Type 2 diabetes mellitus with diabetic polyneuropathy, with long-term current use of insulin ([facility]) No orders of the defined [...] prepared with speech recognition software or keyboard business database analyst techniques. Minor irregularities or keyboarding misprints may be present documented in this encounter Plan of Treatment Not on file documented as of this encounter Visit Diagnoses Diagnosis Ulcer of great toe, left, with necrosis of bone ([facility])- Primary Type 2 diabetes mellitus with diabetic polyneuropathy, with long-term current use of insulin ([facility]) documented in this encounter Historical Medications * This list may reflect changes made after this encounter. gabapentin (NEURONTIN) 100 mg capsule Take 100 mg by mouth 3 times daily. 06/05/2020 added in this encounter Orders Equipment Count Last Ordered Date First Orde red Date GENERIC ORTHO VENDOR DME 1 04/30/2020 documented in this encounter
--- OUTSIDE RECORDS SUMMARY | 2024-05-31 00:44 | XMS_ITS | Encounter Summary ---
Author Organization [facility] Address [address] [place] [address] Care Team Providers Care Shuttle Route Vehicle Operator Name Role Phone Carrington Calderon MD Primary Care Provi anders Abigail Díaz Unavailable Carmelo Hendrickson Unavailable Unavailable Abigail Díaz Unavailable [phone] Encounter Details Date Type Department Care Team (Late st Contact Info) Description 06/19/2020 Lab Requisition [facility] Pathology & Laboratory Medicine - [address] [address] Mushtaq Light, DO [address] [facility], [address] [place] [phone] Other acute osteomyelitis, left ankle and foot [...] acute osteomyelitis, left ankle and foot (HCC-CMS) C REACTIVE PROTEIN After X-Ray 04/08/2020 12 :00 EST Other acute osteomyelitis, left ankle and foot (HCC-CMS) CREATININE After X-Ray 04/08/2020 12:00 EST Other acute osteomyelitis, left ankle and foot (HCC-CMS) documented in this encounter Results * (ABNORMAL) SED. RATE:MARLYN (04/08/2020 12:00 EST) Sed Rate 29(H) 0 - 20 mm/hr 07/01/2020 9:21 [facility] Blood VENOUS BLOOD / Unknown 04/08/2020 12:00 EST 06/19/2020 10:05 EST us Mushtaq Light DO HEMATOLOGY & PF4 ORDERABLES Final Result [facility] [address] [place] [address] * (ABNORMAL) COMPLETE BLOOD COUNT AND DIFFERENTIAL (04/08/2020 12:00 EST) WBC 13.10(H) 4.00 - 12.40 K/cmm 07/01/2020 9:20 [facility] RBC 4.42 3.86 - 5.04 M/cmm 07/01/2020 9:20 [facility] Hemoglobin 13.3 11.6 - 15.2 gm/dL 07/01/2020 9:20 [facility] HCT 38.1 34.9 - 44.4 % 07/01/2020 9:20 [facility] MCV 86 81 - 98 fl 07/01/2020 9:20 [facility] MCH 30.1 26.7 - 33.3 pg 07/01/2020 9:20 [facility] MCHC 34.9 32.1 - 35.9 gm/dL 07/01/2020 9:20 [facility] RDW-CV 12.5 <14.7 % 07/01/2020 9:20 [facility] RDW-SD 39.4 <50.4 fl 07/01/2020 9:20 [facility] PLT 336 141 - 377 K/cmm 07/01/2020 9:20 [facility] MPV 10.1 9.5 - 12.7 fl 07/01/2020 9:20 [facility] % Neutrophils 54.3 % 07/01/2020 9:20 [facility] % Lymphocytes 34.2 % 07/01/2020 9:20 [facility] % Monocytes 7.4 % 07/01/2020 9:20 [facility] % Eosinophils 3.4 % 07/01/2020 9:20 [facility] % Basophils 0.5 % 07/01/2020 9:20 [facility] % Immature Grans 0.2 % 07/01/19 9:20 [facility] Absolute Neutrophils 7.10 2.20 - 8.85 K/cmm 07/01/2020 9:20 [facility] Absolute Lymphocytes 4.48(H) 1.09 - 3.30 K/cmm 07/01/2020 9:20 [facility] Absolute Monocytes 0.97(H) 0.10 - 0.80 K/cmm 07/01/2020 9:20 [facility] Absolute Eosinophils 0.45 0.03 - 0.61 K/cmm 07/01/2020 9:20 [facility] ABS Basophils 0.07 0.01 - 0.11 K/cmm 07/01/2020 9:20 [facility] Absolute Immature Grans 0.03 0.00 - 0.06 K/cmm 07/01/2020 9:20 [facility] Type of Differential: Auto 07/01/2020 9:20 EST [facility] Blood VENOUS BLOOD / Unknown 04/08/2020 12:00 EST 06/19/2020 10:05 EST Mushtaq Light DO PACKAGES & DNA PROBE ORDERA BLES Final Result Performing Organization Address City/[facility]/ZIP Co de Phone Number [facility] [address] [place] [address] * (ABNORMAL) CREATININE (04/08/2020 12:00 EST) Creatinine 0.42(L) 0.52 - 1.04 mg/dL 06/30/2020 12:00 EST [facility] eGFR 133 >60 mL/min/1.7 3m2 06/30/2020 12:00 EST [facility] Comment:eGFR calculated gil curtis CKD-EPI equation for non- Americans. Multiply eGFR by 1.16 for patients. Blood VENOUS BLOOD / Unknown 04/08/2020 12:00 EST 06/19/2020 10:05 EST Mushtaq Light DO CHEMISTRY & BLOOD GAS ORDER HAILEY Final Result Performing Organization Address [facility] Co de Phone Number [facility] [address] [place] [address] * C REACTIVE PROTEIN (04/08/2020 12:00 EST) C-Reactive Protein 7.7 <10.0 mg/L 06/30/2020 12:00 EST [facility] Blood VENOUS BLOOD / Unknown 04/08/2020 12:00 EST 06/19/2020 10:05 EST Mushtaq Light DO CHEMISTRY & BLOOD GAS ORDER HAILEY Final Result Performing Organization Address City/[facility]/ZIP Co de Phone Number [facility] [address] [place] [address] documented in this encounter Visit Diagnoses Diagnosis Other acute osteomyelitis, left ankle and foot (HCC-CMS) documented in this encounter Additional Health Concerns Infection Onset Date Last Indicated Resolved Time R/O COVID-19 08/04/2020 08/04/2020 08/04/2020 11:4 0 EST documented as of this encounter Care Teams Shuttle Route Vehicle Operator Relationship Specialty Start Date End Date Carrington Calderon MD 1 [facility] [address] [place] [phone] PCP - General Internal Medicine - Primary Care 12/09/20 Abigali Díaz Open Hearth Laborer 04/21/23 01/03/24 Carmelo Hendrickson Coordinator 12/01/23 Abigail Díaz Open Hearth Laborer 01/04/24 documented as of this encounter
--- OUTSIDE RECORDS SUMMARY | 2024-05-31 00:44 | XMS_ITS | Encounter Summary ---
Author Organization [facility] Address [address] [place] [address] Care Team Providers Care Senior Embedded Software Engineer Name Role Phone Unavailable Primary [...]
--- OUTSIDE RECORDS SUMMARY | 2024-05-31 00:44 | XMS_ITS | Encounter Summary ---
Author Organization [facility] Address [address] [place] [address] Care Team Providers Care Inventory Control Coordinator Name Role Phone Unavailable Primary Care [...]
--- OUTSIDE RECORDS SUMMARY | 2024-05-31 00:44 | XMS_ITS | Encounter Summary ---
Author Organization [facility] Address [address] [place] [address] Care Team Providers Care Boiler Washer Name Role Phone Unavailable Primary Care Provider Unavailabl e Reason for Visit * Reason Comments Foot Problem Encounter Details Date Type Department Care Team (Latest Contact Info) Description 06/05/2020 10:30 EST Office Visit [facility] Foot & Ankle Program - [address] [place] [address] Elza Navarro DPM [address] [place] [phone] Osteomyelitis of toe of left foot ([facility]) (Primary Dx); Type 2 diabetes mellitus with diabetic polyneuropathy, with long-term current use of insulin ([facility]) Social History Tobacco Use Types [...] documented in this encounter Progress Notes * Brynn Lopez LPN - 06/05/2020 1030 EST Patient Education Topic: Pre-op and Post-op care for left great toe amputation Method: Handout and Verbal Taught to: Patient Barriers: None Outcomes: independent and verbalized understanding Brynn Lopez LPN * Elza Navarro Dickson, DPM - 06/05/2020 1030 EST Cristy Luo [...] mellitus with left diabetic foot ulcer ([facility]) 05/03/2020 Priority: Medium ??? Osteomyelitis of great toe of left foot ([facility]) 03/12/2020 Priority: Medium ??? Diabetic foot ulcer associated with diabetes mellitus due to underlying condition ([facility]) 03/07/2020 Priority: Medium ??? Diabetic foot infection ([facility]) 03/06/2020 Priority: Medium ??? Diabetic foot ulcer ([facility]) 03/06/2020 Priority: Medium ??? Cellulitis of great toe of left foot 11/26/2019 Priority: Medium ??? Chronic midline low back pain without sciatica 11/26/2019 Priority: Medium ??? Chronic left ear pain 09/04/2015 Priority: Medium ??? Encounter for sterilization 11/20/2019 ??? Family history of rheumatoid arthritis 09/04/2015 ??? Type 2 diabetes mellitus ([facility]) 09/03/2015 ??? Anxiety and depression 05/12/2010 ??? Migraine with aura and without status migrainosus, not intractable Past Medical History: Diagnosis Date ??? Anxiety ??? Arthritis 12/05/19- Spine- told years ago ??? Diabetes ([facility]) A1c 10.3 on 11/28/2019 ??? History of [...] 1. Osteomyelitis of toe of left foot ([facility]) CASE REQUEST OPERATING ROOM 2. Type 2 diabetes mellitus with diabetic polyneuropathy, with long-term current use of insulin ([facility]) CASE REQUEST OPERATING ROOM No orders of [...] with speech recognition software or keyboard senior clinical data manager techniques. Minor irregularities or keyboarding misprints may be present documented in this encounter Plan of Treatment Not on file documented as of this encounter Visit Diagnoses Diagnosis Osteomyelitis of toe of left foot ([facility])- Primary Unspecified osteomyelitis, ankle and foot Type 2 diabetes mellitus with diabetic polyneuropathy, with long-term current use of insulin ([facility]) documented in this encounter Orders Case Request Count Last Ordered Date First Orde red Date CASE REQUEST OPERATING ROOM 1 06/05/2020 documented in this encounter
--- OUTSIDE RECORDS SUMMARY | 2024-05-31 00:44 | XMS_ITS | Encounter Summary ---
Author Organization [facility] Address [address] [place] [address] Care Team Providers Care Talent Specialist Name Role Phone Carrington Calderon MD Primary Care Provi anders Abigail Díaz Unavailable Carmelo Hendrickson Unavailable Unavailable Abigail Díaz Unavailable [phone] Encounter Details Date Type Department Care Team (Late st Contact Info) Description 03/25/2020 Lab Requisition [facility] Pathology & Laboratory Medicine - [address] [phone] Mushtaq Light, DO [address] [facility], [address] [place] [phone] Encounter for other general examination Social History [...] John Smith RN documented in this encounter Plan of [...] in this encounter Results * (ABNORMAL) SED. RATE:WESTERGREN (03/25/2020 13:25 EDT) Sed Rate 40(H) 0 - 20 mm/hr 03/25/2020 20:19 EDT [facility] Comment:Note: Sample greater than 4 hours old (but less than 12 hours) when tested. If refrigerated, sample is stable when tested within 12 hours of collection. Blood VENOUS BLOOD / Unknown 03/25/2020 13:25 EDT 03/25/2020 19:10 EDT Mushtaq Light DO HEMATOLOGY & PF4 ORDERABLES Final Result [facility] [address] [place] [address] * (ABNORMAL) COMPLETE BLOOD COUNT AND DIFFERENTIAL (03/25/2020 13:25 EDT) WBC 13.46(H) 4.00 - 12.40 K/cmm 03/25/2020 19:49 EDT [facility] RBC 4.59 3.86 - 5.04 M/cmm 03/25/2020 19:49 EDT [facility] Hemoglobin 13.8 11.6 - 15.2 gm/dL 03/25/2020 19:49 T [facility] HCT 40.3 34.9 - 44.4 % 03/25/2020 19:49 T [facility] MCV 88 81 - 98 fl 03/25/2020 19:49 EDT [facility] MCH 30.1 26.7 - 33.3 pg 03/25/2020 19:49 T [facility] MCHC 34.2 32.1 - 35.9 gm/dL 03/25/2020 19:49 [facility] RDW-CV 12.4 <14.7 % 03/25/2020 19:49 [facility] RDW-SD 40.0 <50.4 fl 03/25/2020 19:49 [facility] PLT 357 141 - 377 K/cmm 03/25/2020 19:49 [facility] MPV 10.1 9.5 - 12.7 fl 03/25/2020 19:49 [facility] % Neutrophils 52.3 % 03/25/2020 19:49 [facility] % Lymphocytes 36.8 % 03/25/2020 19:49 [facility] % Monocytes 7.3 % 03/25/2020 19:49 [facility] % Eosinophils 2.9 % 03/25/2020 19:49 [facility] % Basophils 0.5 % 03/25/2020 19:49 [facility] % Immature Grans 0.2 % 03/25/20 19:49 [facility] Absolute Neutrophils 7.04 2.20 - 8.85 K/cmm 03/25/2020 19:49 [facility] Absolute Lymphocytes 4.95(H) 1.09 - 3.30 K/cmm 03/25/2020 19:49 [facility] Absolute Monocytes 0.98(H) 0.10 - 0.80 K/cmm 03/25/2020 19:49 [facility] Absolute Eosinophils 0.39 0.03 - 0.61 K/cmm 03/25/2020 19:49 [facility] ABS Basophils 0.07 0.01 - 0.11 K/cmm 03/25/2020 19:49 [facility] Absolute Immature Grans 0.03 0.00 - 0.06 K/cmm 03/25/2020 19:49 [facility] Type of Differential: Auto 03/25/2020 19:49 [facility] Blood VENOUS BLOOD / Unknown 03/25/2020 13:25 EDT 03/25/2020 19:10 EDT Mushtaq Light DO PACKAGES & DNA PROBE ORDERA BLES Final Result Performing Organization Address City/[facility]/ZIP Co de Phone Number [facility] [address] [place] [address] * (ABNORMAL) CREATININE (03/25/2020 13:25 EDT) Creatinine 0.44(L) 0.52 - 1.04 mg/dL 03/25/2020 19:46 EDT [facility] eGFR 131 >60 mL/min/1.7 3m2 03/25/2020 19:46 EDT [facility] Comment:eGFR calculated gil curtis CKD-EPI equation for non- Americans. Multiply eGFR by 1.16 for patients. Blood VENOUS BLOOD / Unknown 03/25/2020 13:25 EDT 03/25/2020 19:10 EDT Mushtaq Light DO CHEMISTRY & BLOOD GAS ORDER HAILEY Final Result Performing Organization Address City/[facility]/ZIP Co de Phone Number [facility] [address] [place] [address] * C REACTIVE PROTEIN (03/25/2020 13:25 EDT) C-Reactive Protein <7.0 <10.0 mg/L 03/25/2020 19:46 EDT [facility] Blood VENOUS BLOOD / Unknown 03/25/2020 13:25 EDT 03/25/2020 19:10 EDT Mushtaq Light DO CHEMISTRY & BLOOD GAS ORDER HAILEY Final Result [facility] [address] [place] [address] documented in this encounter Visit Diagnoses Diagnosis Encounter for other general examination documented in this encounter Additional Health Concerns Infection Onset Date Last Indicated Resolved Time R/O COVID-19 08/04/2020 08/04/2020 08/04/2020 11:4 0 EST documented as of this encounter Care Teams Talent Specialist Relationship Specialty Start Date End Date Carrington Calderon MD 1 [facility] 1 [place] [phone] PCP - General Internal Medicine - Primary Care 12/09/20 Abigail Díaz Sample Taker Operator 04/21/23 01/03/24 Carmelo Hendrickson Coordinator 12/01/23 Abigail Díaz Sample Taker Operator 01/04/24 documented as of this encounter
--- OUTSIDE RECORDS SUMMARY | 2024-05-31 00:44 | XMS_ITS | Encounter Summary ---
Author Organization [facility] Address [address] [place] [address] Care Team Providers Care Fur Puller Name Role Phone Unavailable Primary Care Provider Unavailabl e Reason for Visit * Reason Comments Follow-up Encounter Details Date Type Department Care Team (Late st Contact Info) Description 04/16/2020 9:30 EST Telemedicine [facility] Infectious Disease - [address] [phone] Mushtaq Light, DO 111 [facility], [address] [place] [address] Osteomyelitis of great toe of [...] For patients, please refer to guidance in [employer] on how to locate information. Generally this information will appear as a scanned documents saved in My Documents activity. documented in this encounter Plan of Treatment Not on file documented as of this encounter Visit Diagnoses Diagnosis Osteomyelitis of great toe of left foot (HCC-CMS)- Primary documented in this encounter
--- OUTSIDE RECORDS SUMMARY | 2024-05-31 00:44 | XMS_ITS | Encounter Summary ---
Author Organization [facility] Address [address] [place] [address] Care Team Providers Care Ride Assembly Supervisor Name Role Phone Unavailable Primary Care Provider Unavailabl e Reason for Visit * Reason Onset Date Comments Pre-procedure 06/05/2020 Encounter Details Date Type Department Care Team (Latest Contact Info) Description 06/05/2020 Prep for Procedure [facility] Foot & Ankle Program - [address] [phone] Elza Navarro DPM [address] [place] [phone] Osteomyelitis of left foot, unspecified [...] of left foot, unspecified type ([facility])- Primary documented in this encounter
--- OUTSIDE RECORDS SUMMARY | 2024-05-31 00:44 | XMS_ITS | Encounter Summary ---
Author Organization [facility] Address [address] [place] [address] Care Team Providers Care Awning Craftsman Name Role Phone Unavailable Primary Care Provider Unavailabl e Reason for Visit * Reason Comments Telemedicine Video Visit Encounter Details Date Type Department Care Team (Late st Contact Info) Description 06/04/2020 12:00 EST Telemedicine [facility] Infectious Disease - [address] [address] Mushtaq Light, DO 111 [facility], Level 5 [place] [address] Osteomyelitis of great toe of [...] Progress Notes * Mushtaq Light DO - 06/04/2020 1200 EST CHIEF COMPLAINT: Worsening [...] Spine- told years ago ??? Diabetes ([facility]) ? A1c 10.3 on 11/28/2019 ??? [...] BODIES: None ?? SOCIAL HISTORY: Lives with chinese teacher Active smoker but she has gone [...] Gets together: Not on file ? Attends sabianist service: Not on file ? Active member [...] few strep anginosus, moderate prevotella 05/03 covid-19 CASING TRIMMER swab: negative 05/04 blood cultures:06/09 bottles growing [...] proximal phalanx seen on MRI back in Apr, patient may be a surgical candidate at this point. 2. Optimize diabetes management 3. Smoking cessation NICOLE Light staff ?? documented in this encounter Plan of Treatment Not on file documented as of this encounter Visit Diagnoses Diagnosis Osteomyelitis of great toe of left foot (HCC-CMS)- Primary documented in this encounter
--- OUTSIDE RECORDS SUMMARY | 2024-05-31 00:44 | XMS_ITS | Encounter Summary ---
Author Organization [facility] Address [address] [place] [address] Care Team Providers Care Agronomy Location Manager Name Role Phone Carrington Calderon MD Primary Care Provi anders Abigail Díaz Unavailable [phone] Carmelo Hendrickson Unavailable Unavailable Abigail Díaz Unavailable Encounter Details Date Type Department Care Team (Late st Contact Info) Description 04/01/2020 Lab Requisition [facility] Pathology & Laboratory Medicine - [address] [id number] Mushtaq Light, DO 111 [facility], Level [address] [place] [phone] Encounter for other general examination Social History [...] this encounter Results * (ABNORMAL) SED. RATE:WESTERGREN (04/01/2020 10:10 EDT) Pathologist [facility] Sed Rate 30(H) 0 - 20 mm/hr 04/01/2020 20:32 EDT [facility] Comment:Note: Sample greater than 4 hours old (but less than 12 hours) when tested. If refrigerated, sample is stable when tested within 12 hours of collection. Blood VENOUS BLOOD / Unknown Non-Lab Collect / Unknown 04/01/2020 10:10 EDT 04/01/2020 18:42 EDT Mushtaq Light DO HEMATOLOGY & PF4 ORDERABLES Final Result [facility] [address] [place] [phone] * (ABNORMAL) COMPLETE BLOOD COUNT AND DIFFERENTIAL (04/01/2020 10:10 EDT) Pathologist [facility] WBC 10.42 4.00 - 12.40 K/cmm 04/01/2020 19:15 EDT [facility] RBC 4.54 3.86 - 5.04 M/cmm 04/01/2020 19:15 T [facility] Hemoglobin 13.7 11.6 - 15.2 gm/dL 04/01/2020 19:15 T [facility] HCT 40.9 34.9 - 44.4 % 04/01/2020 19:15 T [facility] MCV 90 81 - 98 fl 04/01/2020 19:15 EDT [facility] MCH 30.2 26.7 - 33.3 pg 04/01/2020 19:15 T [facility] MCHC 33.5 32.1 - 35.9 gm/dL 04/01/2020 19:15 [facility] RDW-CV 12.4 <14.7 % 04/01/2020 19:15 [facility] RDW-SD 40.9 <50.4 fl 04/01/2020 19:15 [facility] PLT 336 141 - 377 K/cmm 04/01/2020 19:15 [facility] MPV 10.5 9.5 - 12.7 fl 04/01/2020 19:15 [facility] % Neutrophils 48.0 % 04/01/2020 19:15 [facility] % Lymphocytes 38.5 % 04/01/2020 19:15 [facility] % Monocytes 8.1 % 04/01/2020 19:15 [facility] % Eosinophils 4.5 % 04/01/2020 19:15 [facility] % Basophils 0.7 % 04/01/2020 19:15 [facility] % Immature Grans 0.2 % 04/01/20 20 19:15 [facility] Absolute Neutrophils 5.01 2.20 - 8.85 K/cmm 04/01/2020 19:15 [facility] Absolute Lymphocytes 4.01(H) 1.09 - 3.30 K/cmm 04/01/2020 19:15 [facility] Absolute Monocytes 0.84(H) 0.10 - 0.80 K/cmm 04/01/2020 19:15 [facility] Absolute Eosinophils 0.47 0.03 - 0.61 K/cmm 04/01/2020 19:15 [facility] ABS Basophils 0.07 0.01 - 0.11 K/cmm 04/01/2020 19:15 [facility] Absolute Immature Grans 0.02 0.00 - 0.06 K/cmm 04/01/2020 19:15 [facility] Type of Differential: Auto 04/01/2020 19:15 [facility] Blood VENOUS BLOOD / Unknown Non-Lab Collect / Unknown 04/01/2020 10:10 EDT 04/01/2020 18:42 EDT Mushtaq Light DO PACKAGES & DNA PROBE ORDERA BLES Final Result [facility] [address] [place] [address] * (ABNORMAL) CREATININE (04/01/2020 10:10 EDT) Creatinine 0.37(L) 0.52 - 1.04 mg/dL 04/01/2020 19:10 EDT [facility] eGFR 139 >60 mL/min/1.7 3m2 04/01/2020 19:10 EDT [facility] Comment:eGFR calculated gil curtis CKD-EPI equation for non- Americans. Multiply eGFR by 1.16 for patients. Blood VENOUS BLOOD / Unknown Non-Lab Collect / Unknown 04/01/2020 10:10 EDT 04/01/2020 18:42 EDT Mushtaq Light DO CHEMISTRY & BLOOD GAS ORDER HAILEY Final Result Performing Organization Address [facility]/ZIP Co de Phone Number [facility] [address] [place] [address] * C REACTIVE PROTEIN (04/01/2020 10:10 EDT) C-Reactive Protein <7.0 <10.0 mg/L 04/01/2020 19:10 EDT [facility] Blood VENOUS BLOOD / Unknown Non-Lab Collect / Unknown 04/01/2020 10:10 EDT 04/01/2020 18:42 EDT Mushtaq Light DO CHEMISTRY & BLOOD GAS ORDER HAILEY Final Result [facility] [address] [place] [address] documented in this encounter Visit Diagnoses Diagnosis Encounter for other general examination documented in this encounter Additional Health Concerns Infection Onset Date Last Indicated Resolved Time R/O COVID-19 08/04/2020 08/04/2020 08/04/2020 11:4 0 EST documented as of this encounter Care Teams Agronomy Location Manager Relationship Specialty Start Date End Date Carrington Calderon MD [address] [facility] [address] [place] [address] PCP - General Internal Medicine - Primary Care 12/09/20 Abigail Díaz Splicer Operator 04/21/23 01/03/24 Carmelo Hendrickson Coordinator 12/01/23 Abigail Díaz Splicer Operator 01/04/24 documented as of this encounter
--- OUTSIDE RECORDS SUMMARY | 2024-05-31 00:45 | XMS_ITS | Encounter Summary ---
Author Organization [facility] Address [address] [place] [address] Care Team Providers Care Executive Candidate Developer Name Role Phone Unavailable Primary Care Provider Unavailabl e Reason for Visit * Reason Onset Date Comments Follow-up 03/05/2020 Encounter Details Date Type Department Care Team (Late st Contact Info) Description 03/05/2020 Telephone [facility] Adult Primary Care - [address] [phone] Tonja Alejandro PA-C [facility] [address] [place] [phone] Follow-up Social History Tobacco Use Types [...] as of this encounter Functional Status * Because of a physical, mental, or emotional condition, does this person have difficulty doing errands alone such as visiting a doctor's office or shopping? Answer Date of Assessment Author No 11/10/2018 9:28 EDT documented as of this encounter Mental Status * Because of a physical, mental, or emotional condition, does this person have serious difficulty concentrating, remembering, or making decisions? Answer Entry Date Author No 11/10/2018 9:28 EDT documented in this encounter Miscellaneous Notes [...]
--- OUTSIDE RECORDS SUMMARY | 2024-05-31 00:45 | XMS_ITS | Encounter Summary ---
Author Organization [facility] Address [address] [place] [address] Care Team Providers Care Threading Machine Setter Name Role Phone Carrington Calderon MD Primary Care Provi anders Reason for Visit * Reason Onset Date Comments Blood Sugar Problem 03/18/2020 low;75 Medication Questions 03/18/2020 insulin Encounter Details Date Type Department Care Team (Late st Contact Info) Description 03/18/2020 Telephone [facility] Endocrinology - [facility] [address] [place] [address] Sara Zafar NP [address] [facility] [address] [place] [address] Blood Sugar Problem (low;75); Medication [...] Miscellaneous Notes * Telephone Encounter - Valencia Mancilla CDE - 03/18/2020 1349 EDT Novolog after [...] and carb counting. * Telephone Encounter - Zaida Owens - 03/18/2020 1325 EDT Reason for Call: [...] documented as of this encounter Care Teams Threading Machine Setter Relationship Specialty Start Date End Date Carrington Calderon MD 1 [facility] 1 [place] [phone] PCP - General Internal Medicine - Primary Care 12/09/20 documented as of this encounter
--- OUTSIDE RECORDS SUMMARY | 2024-05-31 00:45 | XMS_ITS | Encounter Summary ---
Author Organization [facility] Address [address] [place] [address] Care Team Providers Care Picker Operator Name Role Phone Unavailable Primary [...] 11/10/2018 9:28 EDT documented in this encounter Plan of Treatment Not on file documented as of this encounter Visit Diagnoses Not on filedocumented in this encounter
--- OUTSIDE RECORDS SUMMARY | 2024-05-31 00:45 | XMS_ITS | Encounter Summary ---
Author Organization [facility] Address [address] [place] [address] Care Team Providers Care Junior Technical Writer Name Role Phone Unavailable Primary Care Provider Unavailabl e Encounter Details Date Type Department Care Team ([facility] Contact Info) Description 03/13/[address] [facility] - [address] [place] [address] Natasha Crook, RN [address] [place] [address] Social History Tobacco Use Types Packs/Day Years [...] documented in this encounter Progress Notes * Natasha Crook RN - 03/13/2020 1137 EDT Call to [...]
--- OUTSIDE RECORDS SUMMARY | 2024-05-31 00:45 | XMS_ITS | Encounter Summary ---
Author Organization [facility] Address [address] [place] [address] Care Team Providers Care Cinder Pitman Name Role Phone Unavailable Primary Care Provider Unavailabl e Reason for Visit * Reason Onset Date Comments Coordination Of Care 03/12/2020 Encounter Details Date Type Department Care Team (Late st Contact Info) Description 03/12/2020 Telephone [facility] Adult Primary Care - [address] [phone] Ton[facility] [address] [place] [phone] Coordination Of Care Social History Tobacco [...] John Ugalde RN documented in this encounter Miscellaneous Notes [...]
--- OUTSIDE RECORDS SUMMARY | 2024-05-31 00:45 | XMS_ITS | Encounter Summary ---
Author Organization [facility] Address [address] [place] [address] Care Team Providers Care Engine Wiper Name Role Phone Unavailable Primary Care Provider Unavailabl e Encounter Details Date Type Department Care Team (Latest Contact Info) Description 01/01/2020 8:37 EDT - 01/01/2020 23:59 EDT [address] Encounter [address] [place], [place] [id number] Discharge Disposition: Home or Self Care Social [...] money to get more. Never true 11/26/2019 Comments No Sex and Gender Information Value [...] 11/10/2018 9:28 EDT documented in this encounter Medications at Time of Discharge blood glucose meter One Touch Verio Flex meter. 1 Each 10/04/2019 2 blood glucose test strips One Touch Verio IQ or other brand compatible with meter and covered by patient's insurance. Testing QID. 100 Each 5 10/01/2019 1 HYDROcodone-acet aminophen (NORCO) 5-325 mg tablet Take 1 Tab by mouth at bedtime as needed for up to 7 days for Pain. Daily Max: 1 Tab 7 Tab 12/28/2019 0 insulin aspart U-100 (NOVOLOG FLEXPEN) 100 unit/mL (3 mL) injectable penIndications:t ype 2 diabetes mellitus,as needed with meals. Inject 4-6 Units into the skin 3 times daily with meals. 0 insulin glargine (LANTUS SOLOSTAR) 100 unit/mL (3 mL) injection pen Inject 30 Units into the skin at bedtime for 90 days. 27 mL 3 12/04/2019 2 lancets One Touch DelHyperoptic or other brand compatible with lancing device and covered by patient's insurance. 100 Each 5 10/01/2019 1 metFORMIN (GLUCOPHAGE) 500 mg tablet Take 2 Tabs by mouth daily for 90 days. 180 Tab 1 11/26/2019 0 documented as of this encounter Discharge Disposition Disposition Code Departure Means Destination Home or Self Care documented in this encounter Plan of Treatment Not on file documented as of this encounter Procedures Procedure Name Priority Date/Time Associated Diagnosis Comments XR FOOT LEFT 3 OR MORE VIEWS Routine 01/01/2020 8:52 EDT Ulcerated, foot, left, with fat layer exposed ([facility]) Type 2 diabetes mellitus with diabetic polyneuropathy, with long-term current use of insulin ([facility]) documented in this encounter Results * [...] the ankle. Elza Navarro DPDickson IMG DIAGNOSTIC IMAGING ORDERABL ES Final Result * XR FOOT LEFT 3 OR MORE [...] of the foot and around the ankle. us Elza Navarro DPM IMG DIAGNOSTIC IMAGING ORDERABL ES Final Result documented in this encounter Visit Diagnoses Not on filedocumented in this encounter
--- OUTSIDE RECORDS SUMMARY | 2024-05-31 00:45 | XMS_ITS | Encounter Summary ---
Author Organization [facility] Address [address] [place] [address] Care Team Providers Care Senior Materials Scientist Name Role Phone Unavailable Primary Care [...]
--- OUTSIDE RECORDS SUMMARY | 2024-05-31 00:45 | XMS_ITS | Encounter Summary ---
Author Organization [facility] Address [address] [place] [address] Care Team Providers Care Morning News Anchor Name Role Phone Unavailable Primary Care Provider Unavailabl e Reason for Visit * Reason Comments Telemedicine Video Visit Encounter Details Date Type Department Care Team (Late st Contact Info) Description 2020 13:00 EDT Telemedicine [facility] Infectious Disease - [address] [phone] Tonja Plascencia, GUSTAVO 111 [facility], Level [address] [place] [address] Diabetic foot infection ([facility]) (Primary Dx) Social History Tobacco Use [...] this encounter Progress Notes * Tonja Plascencia, UPSETTING MACHINE OPERATOR - 2020 1300 EDT Infectious Disease Clinic [...] Plascencia ?? Patient location: [place], State: [place] Estimated driving distance from [place]: 25 miles. Demographics HPI: Cristy Luo [...] cultures 03/06: negative to date Bone culture 10/2: Few PMN, few GPC--culture thus far with [...]
--- OUTSIDE RECORDS SUMMARY | 2024-05-31 00:45 | XMS_ITS | Encounter Summary ---
Author Organization [facility] Address [address] [place] [address] Care Team Providers Care Panel Cutter Name Role Phone Unavailable Primary Care Provider Unavailabl e Reason for Visit * Reason Onset Date Comments Medications Refill 03/21/2020 Encounter Details Date Type Department Care Team (Late st Contact Info) Description 03/21/2020 Refill [facility] Endocrinology - [facility] [address] [place], [place] [phone] Sara Zafar NP 62 [facility] [address] [place] [address] Medications Refill Social History Tobacco [...] John Smith RN documented in this encounter Ordered Prescriptions Prescription Sig Dispense Quantity Refills Last Filled Start Date End Date insulin aspart U-100 (NOVOLOG FLEXPEN) 100 unit/mL (3 mL) injectable penIndications:typ e 2 diabetes mellitus,as needed with meals. Inject 9 Units into the skin 3 times daily with meals. 30 mL 2 03/21/2020 12/21/2021 documented in this encounter Miscellaneous Notes * Telephone Encounter - Foreign Parr - 03/21/2020 0894 EDT Medication(s) Requested Novolog 9 units after [...]
--- OUTSIDE RECORDS SUMMARY | 2024-05-31 00:45 | XMS_ITS | Encounter Summary ---
Author Organization [facility] Address [address] [place] [address] Care Team Providers Care Optical Engineering Technician Name Role Phone Unavailable Primary Care Provider Unavailabl e Encounter Details Date Type Department Care Team ([facility] Contact Info) Description 03/11/2020 Documentation Visit [facility] Home [facility]fusion Pharmacy - [address] [place], [place] [address] Marcel Bustamante Social History Tobacco Use Types [...] 03/11/20 1355 Needleless Connector Changed 03/11/20 03/11/20 1355 Exposed Catheter (cm) 1 cm 03/11/20 135 Assessment: Cristy Luo is a new patient coming on home infusion service. Medication Order Review Admission Criteria: Cultural/mandaen barriers to home infusion therapy: No Language [...] Home Health Agency Contact Info: DANAY Reardon ([phone] or [phone]) Laboratory Contacts: [facility] [phone] Referral Source: Nurse/Client Account Representative Plan: Initial teach completed with Stella for home Cefazolin IV Push, via a single lumen PICC. Discussed diagnosis and goals of therapy. Stella verbalized understanding of all teaching including the care, handling, how to inspect before using, refrigeration and storage of medication and supplies. Stella also verbalized proper set up, cleaning practices, and safe disposal of medication and supplies. Stelal confirmed that they have proper refrigeration capacity [...] 03/13. MARCEL BUSTAMANTE 03/11/2020 15:07 * Mily Ovalle [facility] - 03/11/2020 1505 EDT Patient: Cristy Luo [...] contact nurse and/or MD. Contact MD. Subjective: Objective: [...] nurse assessment. Plan: Begin home infusion therapy. ARC WELDING MACHINE OPERATOR nurse to see patient for administration of first home dose. Mixed and sent enough drug and supplies through 03/19/20. Delivery to [facility] for patient to tow picker at discharge. Anticipated end date 04/20/20. Follow up with patient via telephone within first week of therapy. Monitor labs per care plan weekly. MILY OVALLE RPH 03/17/2020 15:00 documented in this encounter Plan of Treatment Not on file documented as of this encounter Visit Diagnoses Not on filedocumented in this encounter
--- OUTSIDE RECORDS SUMMARY | 2024-05-31 00:45 | XMS_ITS | Encounter Summary ---
Author Organization [facility] Address [address] [place] [address] Care Team Providers Care Carry All Driver Name Role Phone Unavailable Primary Care Provider Unavailabl e Reason for Visit * Reason Onset Date Comments Wound Infection 03/04/2020 Toe Pain 03/04/2020 Encounter Details Date Type Department Care Team (Late st Contact Info) Description 03/04/2020 Telephone [facility] Adult Primary Care [address] [address] Tonja Alejandro PA-C [address] [place] [address] [place] [phone] Wound Infection; Toe Pain Social History [...]
--- OUTSIDE RECORDS SUMMARY | 2024-05-31 00:45 | XMS_ITS | Encounter Summary ---
Author Organization [facility] Address [address] [place] [address] Care Team Providers Care Contact Lens Manufacturer Name Role Phone Unavailable Primary Care Provider Unavailabl e Encounter Details Date Type Department Care Team (Late st Contact Info) Description 01/03/2020 Orders Only [facility] Adult Primary Care - [address] [address] Tonja Alejandro PA-C [address] [place] [address] [place] [phone] Social History Tobacco Use Types Packs/Day [...] 11/10/2018 9:28 EDT documented in this encounter Ordered Prescriptions Prescription Sig Dispense Quantity Refills Last Filled Start Date End Date HYDROcodone-acetam inophen (NORCO) 5-325 mg tablet Take 1 Tab by mouth at bedtime as needed for up to 7 days for Pain. Daily Max: 1 Tab 7 Tab 01/04/2020 0 documented in this encounter Progress Notes * Tonja Alejandro PA-C - 01/03/2020 1425 EDT Spoke with patient. She will get [...]
--- OUTSIDE RECORDS SUMMARY | 2024-05-31 00:45 | XMS_ITS | Encounter Summary ---
Author Organization [facility] Address [address] [place] [address] Care Team Providers Care Clinical Data Coordinator Name Role Phone Unavailable Primary Care Provider Unavailabl e Encounter Details Date Type Department Care Team ([facility] Contact Info) Description 03/17/2020 Documentation Visit [facility]fusion Pharm[facility] - [address] [place], [place] [phone] Marcel Bustamante Social History Tobacco Use Types [...] MORALES RN 03/17/2020 14:59 * [place], [facility] - 03/17/2020 1217 EDT Patient: Cristy Luo [...]
--- OUTSIDE RECORDS SUMMARY | 2024-05-31 00:45 | XMS_ITS | Encounter Summary ---
Author Organization [facility] Address [address] [place] [address] Care Team Providers Care Visual Education Director Name Role Phone Unavailable Primary Care Provider Unavailabl e Encounter Details Date Type Department Care Team ([facility] Contact Info) Description 03/21/2020 Documentation Visit [facility] Home Infusion Pharmacy - [address] [place] [address] Karthikeyan Crook, RN [address] [place] [address] Social History Tobacco Use Types Packs/Day Years [...] documented in this encounter Progress Notes * Karthikeyan Crook RN - 03/21/2020 1409 EDT Patient: Cristy Luo is a 35 [...] CROOK RN 03/21/2020 14:10 * [place], [facility] - 03/21/2020 9347 EDT Patient: Cristy Luo is a 35 [...]
--- OUTSIDE RECORDS SUMMARY | 2024-05-31 00:45 | XMS_ITS | Encounter Summary ---
Author Organization [facility] Address [address] [place] [address] Care Team Providers Care Equipment Operator/Laborer Name Role Phone Unavailable Primary Care Provider Unavailabl e Reason for Visit * Reason Comments Diabetes Encounter Details Date Type Department Care Team (Latest Contact Info) Description 01/08/2020 10:30 EDT Telemedicine [facility] Endocrinology - [facility] [address] [place] [address] Sara Zafar NP [address] [place] [address] Type 2 diabetes mellitus with hyperglycemia, with long-term current use of insulin ([facility]) (Primary Dx) Social History Tobacco Use [...] 11/10/2018 9:28 EDT documented in this encounter Patient Instructions * Patient Instructions* Sara Zafar APRN - 01/08/2020 10:30 EDT Check some BS before bed 3-4 hours after dinner Novolog to 8-10 units 15 minute pre- meal. Fructosamine in 6 weeks. Send BS readings thru My chart F/U in 3 months I will check with [employer] on expected HgA1C to have surgery. documented in this encounter Progress Notes * Sara Zafar APRN - 01/08/2020 1030 EDT Subjective: [facility] diabetes Center F/U Note TELEMEDICINE [...] trimester miscarriages, most recently terminated a at [facility] The most recent 10/28/2019. Recurrent loss is attributed to to poorly controlled type 2 diabetes in conjunction with tobacco dependence. She saw [employer] [facility] on 11/03/2018, and was advised to get diabetes in control, and to quit smoking both tobacco and pot. She was scheduled for a tubal ligation December 14, but was cancelled again. 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 Novolog was added. Fall of 2017. Despite signiifcant wt her blood sugars remain [...] siblings, knows about 2, no DM. 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 Previous [...] in 3 months I will check with [employer] on expected HgA1C to have surgery. Recommend [...] hyperglycemia, with long-term current use of insulin ([facility])- Primary documented in this encounter Discontinued Medications Medication Sig Discontinue Reason Start Date End Da te metFORMIN (GLUCOPHAGE) 500 mg tablet Take 2 Tabs by mouth daily for 90 days. Side effects 11/26/2019 01/08/2020 documented as of this encounter
--- OUTSIDE RECORDS SUMMARY | 2024-05-31 00:45 | XMS_ITS | Encounter Summary ---
Author Organization [facility] Address [address] [place] [address] Care Team Providers Care Air Reduction Equipment Operator Name Role Phone Unavailable Primary Care Provider Unavailabl e Reason for Referral * Laboratory Services (Routine/Next Available) - New Request Specialty Diagnoses / Procedures Referred By Contac t Referred To Contact Diagnoses Diabetic foot ulcer ([facility]) Procedures C REACTIVE PROTEIN Mushtaq Light DO Phone: tel: fax: Referral ID Status Reason Start Date Expiration Date V isits Requested Visits Authorized [id number] New Request 03/12/2020 1 1 * Laboratory Services (Routine/Next Available) - New Request Specialty Diagnoses / Procedures Referred By Contac t Referred To Contact Diagnoses Diabetic foot ulcer ([facility]) Procedures SED. RATE:Mushtaq Peoples DO Phone: tel: fax: Referral ID Status Reason Start Date Expiration Date V isits Requested Visits Authorized [id number] New Request 03/12/2020 1 1 * Laboratory Services (Routine/Next Available) - New Request Specialty Diagnoses / Procedures Referred By Contac t Referred To Contact Diagnoses Diabetic foot ulcer ([facility]) Procedures CREATININE Mushtaq Light DO Phone: tel: fax: Referral ID Status Reason Start Date Expiration Date V isits Requested Visits Authorized [id number] New Request 03/12/2020 1 1 * Laboratory Services (Routine/Next Available) - New Request Specialty Diagnoses / Procedures Referred By Contac t Referred To Contact Diagnoses Diabetic foot ulcer ([facility]) Procedures COMPLETE BLOOD COUNT AND DIFFERENTIAL Mushtaq Light DO Phone: tel: fax: Referral ID Status Reason Start Date Expiration Date V isits Requested Visits Authorized [id number] New Request 03/12/2020 1 1 * Follow Up (Routine/Next Available) - Receiving Office to Obtain Authorization Specialty Diagnoses / Procedures Referred By Contac t Referred To Contact Podiatry Diagnoses Diabetic foot ulcer ([facility]) Carrington Mari MD [address] [place] [address] Phone: tel: fax: [facility] [address] [place] [address] Phone: tel: fax: Referral ID Status Reason Start Date Expiration Date Visits Requested Visits Authorized [id number] Receiving Office to Obtain Authorization Specialty Services [...] Referred To Contact Diagnoses Diabetic foot ulcer ([facility]) Diabetic foot infection ([facility]) Diabetic foot ulcer associated with diabetes mellitus due to underlying condition, unspecified laterality, unspecified part of foot, unspecified ulcer stage (HCC-CMS) Referral ID Status Reason Start Date Expiration Date Visits Re quested Visits Authorized [id number] 1 1 Encounter Details Date Type Department Care Team (Late st Contact Info) Description 03/06/2020 18:11 EDT - 03/12/2020 12:07 EDT Hospital Encounter [facility] 6 General Medicine Telemetry Unit [address] [place] [address] [id number] Siobhan Hare PA-C [address] [place] [address] [phone] Elise Charles MD [address] [place] [address] [phone] Carrington Padilla MD [address] [place] [address] [phone] Cal Jenkins MBBS [address] [place] [phone] Nate Henderson MD [address] [place] [phone] Diabetic foot ulcer (HCC-CMS) (Primary Dx); Diabetic foot infection (HCC-CMS); Osteomyelitis [...] Pressure 128/60 03/12/2020 1001 EDT Pulse 88 03/11/20205 EDT Temperature 35.6 ??C (96.1 ??F) 03/12/2020 [...] John Ugalde RN documented in this encounter Discharge Summaries * Nate Henderson MD - 03/12/2020 1000 EDT Images from the original note were not included. Medicine Discharge Summary Primary Care Provider: Tonja Alejandro Attending Physician: Nate Henderson MD Admit Date: 03/06/2020 Discharge Date: 03/12/20 Disposition: Home with home health Reason for Admission: Foot ulcer Principal/Final Diagnosis: Osteomyelitis of great toe of left foot ([facility]) Additional Problems Managed in the Hospital Active Hospital Problems Diagnosis Date Noted ??? *Osteomyelitis of great toe of left foot ([facility]) 03/12/2020 ??? Diabetic foot ulcer ([facility]) 03/06/2020 Resolved Hospital Problems No [...] Units Date/Time Anaerobe Culture/Smear (inc. aerobes), Other [[id number]] (Abnormal) (Susceptibility) Collected: 03/07/20 1421 Lab Status: Preliminary result Specimen: Bone from Toe Updated: 03/10/20 1751 Organism ID Few Staphylococcus aureus Few Streptococcus agalactiae Few Streptococcus anginosus Moderate Prevotella bivia Smear Few Neutrophils Present Few Gram Positive Cocci Upcoming Appointments 2020 9:30 Office Visit with Elza Navarro DPM [facility] - [place] (--) [address] [place] [id number] 2020 13:00 Televideo Short with Tonja Plascencia APRN [facility] (--) [address] [address] Mar 27, 2020 13:30 Televideo Short with Tonja Plascencia APRN [facility] (--) [address] [address] Apr 03, 2020 13:30 Televideo Short with Tonja Plascencia APRN [facility] (--) [address] [address] Apr 10, 2020 13:30 Televideo Short with Tonja Plascencia APRN [facility] (--) [address] [address] Apr 16, 2020 9:30 Televideo Short with Mushtaq Light DO [facility] (--) [address] [address] Discharge Handoff Communication Following information conveyed to [...] Testing QID. 100 Each 5 10/01/2019 1 ceFAZolin 2,000 mg in sodium chloride 0.9 [...] 1 dose (hives). 2 Cap 03/12/2020 0 insulin aspart U-100 (NOVOLOG FLEXPEN) 100 unit/mL (3 mL) injectable penIndications: type 2 diabetes mellitus,as needed with meals. Inject 4-6 Units into the skin 3 times daily with meals. 0 insulin glargine (LANTUS SOLOSTAR) 100 unit/mL (3 mL) injection pen Inject 30 Units into the skin at bedtime for 90 days. 27 mL 3 12/04/2019 2 IV Infusion Pump Accessory infusion set Use as directed. Order includes administration supplies and pump (if required), and catheter care supplies for home IV therapy. 0 03/11/2020 0 lancets One Touch Delica or other brand compatible with lancing device and covered by patient's insurance. 100 Each 5 10/01/2019 1 metroNIDAZOLE (FLAGYL) 500 mg tablet Take 1 Tab by mouth every 8 hours for 42 days. 126 Tab 03/12/2020 0 sodium chloride 0.9 %, flush, flush syringe [...] 03/12/2020 0 documented as of this encounter Ordered Prescriptions Prescription Sig Dispense Quantity Refills Last Filled Start Date End Date metroNIDAZOLE (FLAGYL) 500 mg tablet Take 1 Tab by mouth every 8 hours for 42 days. 126 Tab 0 04/23/20 20 ceFAZolin 2,000 mg in sodium chloride 0.9 % 50 mL Inject 2,000 mg into the vein every 8 hours for 40 days. Or continue until follow-up appointment with ID. Compound in patient ready to use form. Pharmacy may adjust diluent and/or volume. 0 0 04/21/20 20 sodium chloride 0.9 %, flush, flush syringe For valved catheters (Groshong, Vaxcel, Solo PICC, Mid-line, and Groshong Chest Port): Flush all lumens with 10 mL every week if not in use. Flush 10 mL before and 10 mL after each medication dose (20 mL after vancomycin doses). Flush with 20 mL after blood draws. Dispense quantity sufficient. 1 Box 0 05/12/20 20 diphenhydrAMINE (BENADRYL) 50 mg capsule Take 1 Cap by mouth as needed for up to 1 dose (hives). 2 Cap 0 05/12/20 20 IV Infusion Pump Accessory infusion set Use as directed. Order includes administration supplies and pump (if required), and catheter care supplies for home IV therapy. 0 0 04/20/20 20 documented in this encounter Discharge Disposition Disposition Code Departure Means Destination [facility] documented in this encounter Progress Notes * Nate Henderson MD - 03/11/2020 1340 EDT Medicine Progress Note Admit Date: 03/06/2020 [...] discuss the patient's care with the physician construction management assistant. Nate Henderson MD 03/24/2020 12:46 * Elza Navarro, DPM - 03/11/2020 0737 EDT S: Saw [...] Semi fowlers Semi fowlers Resp: 16 18 15 18 Temp: 37.1 ??C (98.8 ??F) 36.7 [...] questions. * Nate Henderson MD - 03/10/2020 2933 EDT Medicine Progress Note Admit Date: 03/06/2020 [...] discuss the patient's care with the physician construction management assistant. Nate Henderson MD 03/24/2020 12:48 * Ranulfo Valverde RN - 03/10/2020 1549 EDT Patient for home on IV antibiotic for a long course. Had discussed this with the pt and her spouse as a possibility last week. As of this time the pt isstill in agreement with home IV medication. She has chosen the [facility] and I have called to the Liaison for the [facility] to give a heads up as they will come into the home for reinforcement of teaching of self administration and will also change the dressing on the PICC line as per their agency protocol. Call to the [facility] and they have confirmed that the pt has 100% coverage from Medicaid. No prior auth needed. Awaiting PICC placement and initial infusion of medication and teaching from [facility] once the pt is ready to go back to home. Case Management will follow to transition. Ranulfo Valverde RN CCM 0430 * Taj Norton MD - 03/10/2020 0203 EDT Orthopedic Surgery Progress Note Diagnosis: Left great toe diabetic foot wound Procedure: Bedside debridement on 03/07/2020 24hr: NAEON Subjective: Doing well today. Pain is significantly [...] on that service for further questions. TAJ NORTON MD * Stacie Salazar RN - 03/10/2020 [...] Results: Anaerobe Culture/Smear (inc. aerobes), Other (Order [id number]) Abnormal Status: Preliminary result (Collected: 03/07/2020 14:21) [...] Consults Infectious Disease VALENCIA ROSE 03/09/2020 9:27 Cosigned by Adair Martinez PA-C at 03/09/2020 18:43 EDT Associated attestation - Adair Martinez PA-C - [...] 9:34 * Carrington Mari MD - 03/08/2020 0757 EDT Orthopaedic Progress Note for 03/08/20 Pt [...] answer calls. Please direct calls to orthopaedics solar installation foreman resident for further questions. Cosigned by Eryn Bagley MD at 03/08/2020 8:17 EDT * Aliya Santizo RPH - 03/07/2020 2336 EDT Pharmacy Note: Vancomycin Monitoring Cristy Luo [...] Please continue to monitor renal function. Aliya Santizo, PharmD, BRIANDA, BCPS Pharmacist (Night) Lead - Emergency Medicine/Critical Care * Ranulfo Valverde, MARCELO - 03/07/2020 1613 EDT Initial Case Management/Social Work Assessment and Discharge Plan/Readmission Risk Assessment REASON FOR ADMISSION: Diabetic foot ulcer ([facility]) Patient understands reason for admission: [...] FOR FINANCES: TRANSPORTATION: Transportation: Family, Self CULTURAL, PRESYBETERIAN and/or LANGUAGE factors affecting health care/discharge planning: [...] Home Health Services: None DME Provider: Pharmacy: [id number] - [facility] [address] [facility] [address] [facility] [address] Home Health: Other: POST HOSPITAL TRANSITION PLAN: Have met with the pt and her this day. She just had a debridement and BX. Awaiting results. Pt and her are both working and raising children. 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 Will await results of the BX and the determination regarding need for medication and specifics related to type, and duration and recommendations for mode of delivery. Case Management will follow for transition. This pt has Medicaid and is capable to having home IV medication if needed. Specifics for finances would need to be confirmed from [facility] most likely if IV is indicated. RANULFO VALVERDE RN CCM 0430 03/07/2020 16:13 * Vicki Phan RN - 03/07/2020 2217 EDT Diabetes Nurse clinician met with Stella for review of SDM handout and diabetes management. SMBG: Checks 3-6 times a day Medications: Lantus and Novolog Diabetes Provider:Sara Zafar Tells me that she has had Diabetes [...] a planning healthy meals folder. Vicki CLARKE industrial safety engineer Nurse Clinician #[id number] * Valencia Antunez - 03/07/2020 6838 EDT Medicine Progress Note Service Date: 03/07/2020 [...] care Consults None VALENCIA ROSE 03/07/2020 9:52 Cosigned by Adair Martinez PA-C at 03/07/2020 15:57 EDT Associated attestation - Adair Martinez PA-C - 03/07/2020 1557 EDT I attest that I have reviewed [...] Notes * Carrington Padilla MD - 03/06/2020 0026 EDT Images from the original note were [...] Spine- told years ago ??? Diabetes ([facility]) A1c 10.3 on 11/28/2019 ??? [...] controlled type 2 diabetesc/b neuropathy (Hgb A1c 11/23) and foot ulcer, past history morbid [...] in this encounter Procedure Notes * Nory Ware RN - 03/11/2020 1400 EDTAssociated Order(s): INSERT PICC LINE Central Catheter Insertion First Catheter This Session oil field rig builder: Patient Location: M606/M606-02 Preliminary Data: Insertion Date: 03/11/20 Insertion Time: 1353 First Management Scientist: Nory Ware RN RN/SANDOR Documenting Procedure: Jessika [...] Line Operators: Number Of Operators: 1 First Management Scientist's Name: Nory Ware RN First Management Scientist's Title: Vascular bung remover Unless otherwise noted, there were no complications, [...] [facility] and [facility] given [...] history of repeated infections. 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 Review of Systems: Remainder of a ten point review of systems was performed and negative. Past Medical History: has a past medical history of Anxiety, Arthritis, Diabetes ([facility]), Historyof general anesthesia, Nausea & vomiting, [...] History: . Lives with her and children. 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 Vital Signs: BP 109/66 (BP Cuff [...] notedworsening left foot pain and swelling in November/December. She was placed in a walking boot [...] lost to follow-up. 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 She is a current smoker and endorses occasional alcohol and marijuana use. Ambulatory status: ambulates without assistive devices Last meal: 12:30 03/07/20 Past Medical History: Diagnosis Date ??? Anxiety ??? Arthritis 12/05/19- Spine- told years ago ??? Diabetes ([facility]) A1c 10.3 on 11/28/2019 ??? History of general anesthesia ? ? Nausea & vomiting ??? Obesity, unspecified ??? Peripheral neuropathy 12/05/19- Bilateral feet ??? 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 [...] T2DM with neuropathy who presents to the [facility] PCP's reccomendation, with increased swelling and [...] further care. Final diagnoses: Diabetic foot ulcer ([facility]) This documentation is recorded by [...] as increased swelling. She does have a rn occupational, last saw them in late December. She [...] physician: Araceli Final diagnoses: Diabetic foot ulcer ([facility]) DISPOSITION: Admitted The patient's pain [...] the Emergency Department: Good PCP: Tonja Alejandro [facility] 03/07/2020 12:09 No flowsheet data found. * Leila Biggs RN - 03/06/2020 1849 EDT TCALL: Stella Luo 10-15-85 Dr. Ferrre refers pt to e.d for eval. CC: [...] Plan Goals Description: D: Patient admitted to [facility] @ 2300. Patient's chief complaint is [...] Care - Carrington Mari MD - 03/07/2020 8354 EDT Consulted by medicine to evaluate the patient for diabetic foot wound. The patient was not in her room. According to nursing the patient and her went outside to get fresh air. Orthopedics will evaluate the patient at a later time Carrington Mari * Plan of Care - Marisa Barahona RN - 03/07/2020 0305 EDT D: Patient admitted to [facility] @ 2300. Patient's chief complaint is a diabetic foot ulcer on left big toe. Pt c/o 6/10 pain upon arrival to unit. A: Admission [...] AND DIFFERENTIAL Lab Routine Diabetic foot ulcer ([facility]) Ordered: 03/12/2020 CREATININE Lab Routine Diabetic foot ulcer ([facility]) Ordered: 03/12/2020 SED. RATE:WESTERGREN Lab Routine Diabetic foot ulcer ([facility]) Ordered: 03/12/2020 C REACTIVE PROTEIN Lab Routine Diabetic foot ulcer ([facility]) Ordered: 03/12/2020 Scheduled Referrals Name Type Priority Associated Diagnoses Orde r Schedule AMB CONS/FOLLOW UP PODIATRY Outpatient Referral Routine Diabetic foot ulcer ([facility]) Ordered: 03/07/2020 documented as of [...] GLUCOSE, INTERFACED Routine 03/09/2020 22:50 EDT MR FOREFOOT/MIDFOOT W WO CONTRAST LEFT STAT 03/09/2020 22:38 [...] (03/18/2020 10:51 EDT) 03/18/2020 10:5 1 EDT us Scan 2 [employer] PROCEDURE/MINOR SURGICAL OR DERABLES Final Result * ORDERS - SCANNED (03/14/2020 7:54 EDT) 03/14/2020 7:54 EDT us Scan 2 [employer] ADMISSION ORDERABLES Final Result * (ABNORMAL) POCT GLUCOSE, INTERFACED (03/12/2020 7:40 EDT) Glucose, POC 144(H) 70 - 100 mg/dL 03/12/2020 7:41 EDT [facility] [place] [id number] 03/12/2020 7:41 EDT [facility] HN LAB POC COMMENT (GLUCOSE) Test Performed by Nursing Services 03/12/2020 7:41 EDT [facility] Blood CAPILLARY BLOOD / Unknown 03/12/2020 7:40 EDT 03/12/2020 7:41 EDT us Catherine Booth MD POINT OF CARE TEST ORDERAB LES Final Result [facility] [address] [place] [address] * (ABNORMAL) POCT GLUCOSE, INTERFACED (03/11/2020 21:39 EDT) Glucose, POC 210(H) 70 - 100 mg/dL 03/11/2020 21:42 EDT [facility] [place]maker [place] [id number] 03/11/2020 21:42 EDT [facility] HN LAB POC COMMENT (GLUCOSE) Test Performed by Nursing Services 03/11/2020 21:42 EDT [facility] Blood CAPILLARY BLOOD / Unknown 03/11/2020 21:39 EDT 03/11/2020 21:42 EDT us Catherine Booth MD POINT OF CARE TEST ORDERAB LES Final Result Performing Organization Address City/[facility]/ZIP Co de Phone Number [facility] [address] [place] [address] * (ABNORMAL) POCT GLUCOSE, INTERFACED (03/11/2020 17:49 EDT) Glucose, POC 151(H) 70 - 100 mg/dL 03/11/2020 17:53 EDT [facility] pinmaker [place] [id number] 03/11/2020 17:53 EDT [facility] HN LAB POC COMMENT (GLUCOSE) Test Performed by Nursing Services 03/11/2020 17:53 EDT [facility] Blood CAPILLARY BLOOD / Unknown 03/11/2020 17:49 EDT 03/11/2020 17:53 EDT us Catherine Booth MD POINT OF CARE TEST ORDERAB LES Final Result [facility] [address] [place] [address] * INSERT PICC LINE (03/11/2020 14:00 EDT) Narrative Nory Ware RN - 03/11/2020 14:00 EDT Nory Ware RN ? 03/11/2020 14:03 Central Catheter Insertion First Catheter This Session ?oil field rig builder: Patient Location: M606/M606-02 Preliminary Data: Insertion Date: 03/11/20 Insertion Time: 1353 First Management Scientist: Nory Ware RN RN/SANDOR Documenting Procedure: Jessika [...] Service / IR Details: Responsible Service: PADILLA ROBERTSON Lidocaine 1% - Route/Dose (cc's): Intradermal;1 Central Line Materials and Methods: Number of Attempts: 1 Number of Sites Attempted: 1 Number of Kits Used: 1 Location Device Used: Ultrasound;3CG;Sherlock Central Line Operators: Number Of Operators: 1 First Management Scientist's Name: Nory Ware RN First Management Scientist's Title: Vascular bung remover Unless otherwise noted, there were no complications, no blood loss and no cultures obtained. NORY WARE RN ?? 03/11/2020 ?? 14:01 Jarrett Gutierrez PA-C IV THERAPY ORDERABLES Final Result * (ABNORMAL) POCT GLUCOSE, INTERFACED (03/11/2020 11:57 EDT) Glucose, POC 185(H) 70 - 100 mg/dL 03/11/2020 12:16 EDT [facility] pinmaker ID [id number] 03/11/2020 12:16 EDT [facility] HN LAB POC COMMENT (GLUCOSE) Test Performed by Nursing Services 03/11/2020 12:16 EDT [facility] Blood CAPILLARY BLOOD / Unknown 03/11/2020 11:57 EDT 03/11/2020 12:16 EDT us Catherine Booth MD POINT OF CARE TEST ORDERAB LES Final Result Performing Organization Address City/[facility]/ZIP Co de Phone Number [facility] [address] [place] [address] * (ABNORMAL) POCT GLUCOSE, INTERFACED (03/11/2020 8:06 EDT) Glucose, POC 110(H) 70 - 100 mg/dL 03/11/2020 14:30 EDT [facility] pinmaker [place] [id number] 03/11/2020 14:30 EDT [facility] HN LAB POC COMMENT (GLUCOSE) Test Performed by Nursing Services 03/11/2020 14:30 EDT [facility] Blood CAPILLARY BLOOD / Unknown 03/11/2020 8:06 EDT 03/11/2020 14:30 EDT us Catherine Booth MD POINT OF CARE TEST ORDERAB LES Final Result [facility] [address] [place] [address] * (ABNORMAL) POCT GLUCOSE, INTERFACED (03/10/2020 21:23 EDT) Glucose, POC 185(H) 70 - 100 mg/dL 03/10/2020 21:26 EDT [facility] [place]maker [place] [id number] 03/10/2020 21:26 EDT [facility] HN LAB POC COMMENT (GLUCOSE) Test Performed by Nursing Services 03/10/2020 21:26 EDT [facility] Blood CAPILLARY BLOOD / Unknown 03/10/2020 21:23 EDT 03/10/2020 21:26 EDT us Catherine Booth MD POINT OF CARE TEST ORDERAB LES Final Result Performing Organization Address City/[facility]/ZIP Co de Phone Number [facility] [address] [place] [address] * (ABNORMAL) POCT GLUCOSE, INTERFACED (03/10/2020 18:42 EDT) Glucose, POC 154(H) 70 - 100 mg/dL 03/10/2020 18:47 EDT [facility] pinmaker ID [id number] 03/10/2020 18:47 EDT [facility] HN LAB POC COMMENT (GLUCOSE) Test Performed by Nursing Services 03/10/2020 18:47 EDT [facility] Blood CAPILLARY BLOOD / Unknown 03/10/2020 18:42 EDT 03/10/2020 18:47 EDT us Catherine Booth MD POINT OF CARE TEST ORDERAB LES Final Result Performing Organization Address [facility]/ZIP Co de Phone Number [facility] [address] [place] [address] * (ABNORMAL) POCT GLUCOSE, INTERFACED (03/10/2020 12:24 EDT) Glucose, POC 149(H) 70 - 100 mg/dL 03/10/2020 12:26 EDT [facility] pinmaker ID [id number] 03/10/2020 12:26 EDT [facility] HN LAB POC COMMENT (GLUCOSE) Test Performed by Nursing Services 03/10/2020 12:26 EDT [facility] Blood CAPILLARY BLOOD / Unknown 03/10/2020 12:24 EDT 03/10/2020 12:26 EDT us Catherine Booth MD POINT OF CARE TEST ORDERAB LES Final Result Performing Organization Address City/[facility]/ZIP Co de Phone Number [facility] [address] [place] [address] * (ABNORMAL) POCT GLUCOSE, INTERFACED (03/10/2020 8:33 EDT) Glucose, POC 126(H) 70 - 100 mg/dL 03/10/2020 8:39 EDT [facility] [place]maker [place] [id number] 03/10/2020 8:39 EDT [facility] HN LAB POC COMMENT (GLUCOSE) Test Performed by Nursing Services 03/10/2020 8:39 EDT [facility] Blood CAPILLARY BLOOD / Unknown 03/10/2020 8:33 EDT 03/10/2020 8:39 EDT us Catherien Booth MD POINT OF CARE TEST ORDERAB LES Final Result Performing Organization Address [facility]/ZIP Co de Phone Number [facility] [address] [place] [address] * ELECTROLYTES (03/10/2020 7:01 EDT) Sodium 141 136 - 145 mEq/L 03/10/2020 8:04 EDT [facility] Potassium 4.6 3.5 - 5.0 mEq/L 03/10/2020 8:04 EDT [facility] Chloride 103 96 - 110 mEq/L 03/10/2020 8:04 EDT [facility] CO2 Total 29 22 - 32 mEq/L 03/10/2020 8:04 EDT [facility] Blood VENOUS BLOOD / Unknown Venipuncture / Unknown 03/10/2020 7:01 EDT 03/10/2020 7:35 EDT us Adair Martinez PA-C CHEMISTRY & BLOOD GAS ORDE CHANTEL Final Result Performing Organization Address City/[facility]/ZIP Co de Phone Number [facility] [address] [place] [address] * (ABNORMAL) COMPLETE BLOOD COUNT (03/10/2020 7:01 EDT) WBC 12.33 4.00 - 12.40 K/cmm 03/10/2020 7:42 [facility] RBC 4.61 3.86 - 5.04 M/cmm 03/10/2020 7:42 [facility] Hemoglobin 14.1 11.6 - 15.2 gm/dL 03/10/2020 7:42 [facility] HCT 41.4 34.9 - 44.4 % 03/10/2020 7:42 [facility] MCV 90 81 - 98 fl 03/10/2020 7:42 [facility] MCH 30.6 26.7 - 33.3 pg 03/10/2020 7:42 [facility] MCHC 34.1 32.1 - 35.9 gm/dL 03/10/2020 7:42 [facility] RDW-CV 12.3 <14.7 % 03/10/2020 7:42 [facility] RDW-SD 40.3 <50.4 fl 03/10/2020 7:42 [facility] PLT 424(H) 141 - 377 K/cmm 03/10/2020 7:42 [facility] MPV 9.8 9.5 - 12.7 fl 03/10/2020 7:42 [facility] Blood VENOUS BLOOD / Unknown Venipuncture / Unknown 03/10/2020 7:01 EDT 03/10/2020 7:35 EDT us Adair Martinez PA-C HEMATOLOGY & PF4 ORDERABLE S Final Result [facility] [address] [place] [address] * (ABNORMAL) CREATININE (03/10/2020 7:01 EDT) Creatinine 0.50(L) 0.52 - 1.04 mg/dL 03/10/2020 8:04 T [facility] eGFR 127 >60 mL/min/1.7 3m2 03/10/2020 8:04 EDT [facility] Comment:eGFR calculated gil curtis CKD-EPI equation for non- Americans. Multiply eGFR by 1.16 for patients. Blood VENOUS BLOOD / Unknown Venipuncture / Unknown 03/10/2020 7:01 EDT 03/10/2020 7:35 EDT us Adair Martinez PA-C CHEMISTRY & BLOOD GAS ORDE RABLES Final Result Performing Organization Address City/[facility]/ZIP Co de Phone Number [facility] [address] [place] [address] * (ABNORMAL) POCT GLUCOSE, INTERFACED (03/09/2020 22:50 EDT) [facility] Glucose, POC 150(H) 70 - 100 mg/dL 03/09/2020 22:51 EDT [facility] [place] [id number] 03/09/2020 22:51 EDT [facility] HN LAB POC COMMENT (GLUCOSE) Test Performed by Nursing Services 03/09/2020 22:51 EDT [facility] Blood CAPILLARY BLOOD / Unknown 03/09/2020 22:50 EDT 03/09/2020 22:51 EDT us Catherine Booth MD POINT OF CARE TEST ORDERAB LES Final Result Performing Organization Address [facility] Co de Phone Number [facility] [address] [place] [address] * MR FOOT W WO CONTRAST LEFT [...] above interpretation andagree with the findings. us Adair Martinez PA-C IMG MRI ORDERABLES Final R esult * (ABNORMAL) POCT GLUCOSE, INTERFACED (03/09/2020 17:21 EDT) Glucose, POC 201(H) 70 - 100 mg/dL 03/09/2020 17:22 EDT [facility] [place]maker [place] [id number] 03/09/2020 17:22 EDT [facility] HN LAB POC COMMENT (GLUCOSE) Test Performed by Nursing Services 03/09/2020 17:22 EDT [facility] Blood CAPILLARY BLOOD / Unknown 03/09/2020 17:21 EDT 03/09/2020 17:22 EDT us Catherine Booth MD POINT OF CARE TEST ORDERAB LES Final Result [facility] [address] [place] [id number] * (ABNORMAL) POCT GLUCOSE, INTERFACED (03/09/2020 13:23 EDT) Glucose, POC 178(H) 70 - 100 mg/dL 03/09/2020 13:24 EDT [facility] pinmaker [place] [id number] 03/09/2020 13:24 EDT [facility] HN LAB POC COMMENT (GLUCOSE) Test Performed by Nursing Services 03/09/2020 13:24 EDT [facility] Blood CAPILLARY BLOOD / Unknown 03/09/2020 13:23 EDT 03/09/2020 13:24 EDT us Catherine Booth MD POINT OF CARE TEST ORDERAB LES Final Result [facility] [address] [place] [address] * (ABNORMAL) POCT GLUCOSE, INTERFACED (03/09/2020 8:38 EDT) Glucose, POC 108(H) 70 - 100 mg/dL 03/09/2020 8:43 EDT [facility] [place]maker [place] [id number] 03/09/2020 8:43 EDT [facility] HN LAB POC COMMENT (GLUCOSE) Test Performed by Nursing Services 03/09/2020 8:43 EDT [facility] Blood CAPILLARY BLOOD / Unknown 03/09/2020 8:38 EDT 03/09/2020 8:43 EDT us Catherine Booth MD POINT OF CARE TEST ORDERAB LES Final Result Performing Organization Address City/[facility]/ZIP Co de Phone Number [facility] [address] [place] [address] * (ABNORMAL) POCT GLUCOSE, INTERFACED (03/08/2020 20:52 EDT) Glucose, POC 122(H) 70 - 100 mg/dL 03/08/2020 20:58 EDT [facility] pinmaker ID [id number] 03/08/2020 20:58 EDT [facility] HN LAB POC COMMENT (GLUCOSE) Test Performed by Nursing Services 03/08/2020 20:58 EDT [facility] Blood CAPILLARY BLOOD / Unknown 03/08/2020 20:52 EDT 03/08/2020 20:58 EDT us Catherine Booth MD POINT OF CARE TEST ORDERAB LES Final Result [facility] [address] [place] [address] * POCT GLUCOSE, INTERFACED (03/08/2020 17:44 EDT) Glucose, POC 99 70 - 100 mg/dL 03/08/2020 17:44 EDT [facility] pinmaker ID [id number] 03/08/2020 17:44 EDT [facility] HN LAB POC COMMENT (GLUCOSE) Test Performed by Nursing Services 03/08/2020 17:44 EDT [facility] Blood CAPILLARY BLOOD / Unknown 03/08/2020 17:44 EDT 03/08/2020 17:44 EDT us Catherine Booth MD POINT OF CARE TEST ORDERAB LES Final Result Performing Organization Address City/[facility]/ZIP Co de Phone Number [facility] [address] [place] [address] * (ABNORMAL) POCT GLUCOSE, INTERFACED (03/08/2020 13:15 EDT) Glucose, POC 142(H) 70 - 100 mg/dL 03/08/2020 13:16 EDT [facility] [place]maker [place] [id number] 03/08/2020 13:16 EDT [facility] HN LAB POC COMMENT (GLUCOSE) Test Performed by Nursing Services 03/08/2020 13:16 EDT [facility] Blood CAPILLARY BLOOD / Unknown 03/08/2020 13:15 EDT 03/08/2020 13:16 EDT us Catherine Booth MD POINT OF CARE TEST ORDERAB LES Final Result [facility] [address] [place] [address] * (ABNORMAL) POCT GLUCOSE, INTERFACED (03/08/2020 7:45 EDT) Glucose, POC 176(H) 70 - 100 mg/dL 03/08/2020 7:47 EDT [facility] pinmaker ID [id number] 03/08/2020 7:47 EDT [facility] HN LAB POC COMMENT (GLUCOSE) Test Performed by Nursing Services 03/08/2020 7:47 EDT [facility] Blood CAPILLARY BLOOD / Unknown 03/08/2020 7:45 EDT 03/08/2020 7:47 EDT us Catherine Booth MD POINT OF CARE TEST ORDERAB LES Final Result Performing Organization Address [facility] Co de Phone Number [facility] [address] [place] [address] * (ABNORMAL) CREATININE (03/08/2020 7:20 EDT) Creatinine 0.42(L) 0.52 - 1.04 mg/dL 03/08/2020 9:12 EDT [facility] eGFR 134 >60 mL/min/1.7 3m2 03/08/2020 9:12 EDT [facility] Comment:eGFR calculated gil curtis CKD-EPI equation for non- Americans. Multiply eGFR by 1.16 for patients. Blood VENOUS BLOOD / Unknown Venipuncture / Unknown 03/08/2020 7:20 EDT 03/08/2020 8:43 EDT us Adair Martinez PA-C CHEMISTRY & BLOOD GAS ORDE RABLES Final Result Performing Organization Address [facility] Co de Phone Number [facility] [address] [place] [address] * ELECTROLYTES (03/08/2020 7:20 EDT) Sodium 139 136 - 145 mEq/L 03/08/2020 9:12 EDT [facility] Potassium 4.6 3.5 - 5.0 mEq/L 03/08/2020 9:12 EDT [facility] Chloride 105 96 - 110 mEq/L 03/08/2020 9:12 EDT [facility] CO2 Total 25 22 - 32 mEq/L 03/08/2020 9:12 EDT [facility] Blood VENOUS BLOOD / Unknown Venipuncture / Unknown 03/08/2020 7:20 EDT 03/08/2020 8:43 EDT us Adair Martinez PA-C CHEMISTRY & BLOOD GAS ORDE RABLES Final Result [facility] [address] [place] [address] * (ABNORMAL) COMPLETE BLOOD COUNT (03/08/2020 7:20 EDT) WBC 11.24 4.00 - 12.40 K/cmm 03/08/2020 8:25 EDT [facility] RBC 4.29 3.86 - 5.04 M/cmm 03/08/2020 8:25 EDT [facility] Hemoglobin 13.2 11.6 - 15.2 gm/dL 03/08/2020 8:25 EDT [facility] HCT 37.9 34.9 - 44.4 % 03/08/2020 8:25 EDT [facility] MCV 88 81 - 98 fl 03/08/2020 8:25 EDT [facility] MCH 30.8 26.7 - 33.3 pg 03/08/2020 8:25 EDT [facility] MCHC 34.8 32.1 - 35.9 gm/dL 03/08/2020 8:25 EDT [facility] RDW-CV 12.3 <14.7 % 03/08/2020 8:25 EDT [facility] RDW-SD 39.5 <50.4 fl 03/08/2020 8:25 EDT [facility] PLT 406(H) 141 - 377 K/cmm 03/08/2020 8:25 EDT [facility] MPV 9.9 9.5 - 12.7 fl 03/08/2020 8:25 T [facility] Blood VENOUS BLOOD / Unknown Venipuncture / Unknown 03/08/2020 7:20 EDT 03/08/2020 8:11 EDT us Adair Martinez PA-C HEMATOLOGY & PF4 ORDERABLE S Final Result [facility] [address] [place] [address] * VANCOMYCIN TROUGH (03/07/2020 21:29 EDT) Vancomycin Trough 13.0 10.0 - 20.0 ug/mlL 03/07/2020 22:02 EDT [facility] Draw Type Not Given 03/07/2020 22:02 EDT [facility] Blood VENOUS BLOOD / Unknown Venipuncture / Unknown 03/07/2020 21:29 EDT 03/07/2020 21:33 EDT us Cal GARIBAY CHEMISTRY & BLOOD GA S ORDERABLES Final Result Performing Organization Address City/[facility]/ZIP Co de Phone Number [facility] [address] [place] [address] * (ABNORMAL) POCT GLUCOSE, INTERFACED (03/07/2020 21:25 EDT) Glucose, POC 105(H) 70 - 100 mg/dL 03/07/2020 21:30 EDT [facility] [place]maker ID [id number] 03/07/2020 21:30 EDT [facility] HN LAB POC COMMENT (GLUCOSE) Test Performed by Nursing Services 03/07/2020 21:30 EDT [facility] Blood CAPILLARY BLOOD / Unknown 03/07/2020 21:25 EDT 03/07/2020 21:30 EDT us Catherine Booth MD POINT OF CARE TEST ORDERAB LES Final Result [facility] [address] [place] [address] * (ABNORMAL) POCT GLUCOSE, INTERFACED (03/07/2020 17:40 EDT) Glucose, POC 196(H) 70 - 100 mg/dL 03/07/2020 18:59 EDT [facility] pinmaker ID [id number] 03/07/2020 18:59 EDT [facility] HN LAB POC COMMENT (GLUCOSE) Test Performed by Nursing Services 03/07/2020 18:59 EDT [facility] Blood CAPILLARY BLOOD / Unknown 03/07/2020 17:40 EDT 03/07/2020 18:59 EDT Catherine Booth MD POINT OF CARE TEST ORDERAB LES Final Result [facility] [address] [place] [address] * (ABNORMAL) ANAEROBE CULTURE/SMEAR(INC. AEROBES), OTHER (03/07/2020 14:21 EDT) Organism ID Few Staphylococcus aureus(A) 03/13/2020 7:50 EDT [facility] Comment:Susceptible to nafci llin, cephalosporins and other beta lactam antibiotics (mecA gene product absent). Organism ID Few Streptococcus agalactiae(A) 03/13/2020 7:50 EDT [facility] Comment:Penicillin and ampic illin are drugs of choice for treatment of beta hemolytic streptococcal infections. Organism ID Few Streptococcus anginosus(A) 03/13/2020 7:50 EDT [facility] Organism ID Moderate Prevotella bivia(A) 03/13/2020 7:50 EDT [facility] Smear Few Neutrophils Present(A) 03/13/2020 7:50 EDT [facility] Smear Few Gram Positive Cocci(A) 03/13/2020 7:50 EDT [facility] Bone ENTIRE TOE [...] ug/mL: Susceptible Adair Martinez PA-C MICROBIOLOGY - GENERAL ORD ERABLES Final Result [facility] [address] [place] [address] * XR FOOT LEFT 3 OR MORE [...] above interpretation andagree with the findings. us Carrington Mari MD IMG DIAGNOSTIC IMAGING ORDERA BLES Final Result * (ABNORMAL) POCT GLUCOSE, INTERFACED (03/07/2020 12:23 EDT) Glucose, POC 186(H) 70 - 100 mg/dL 03/07/2020 12:26 EDT [facility] [place] [place] [id number] 03/07/2020 12:26 EDT [facility] HN LAB POC COMMENT (GLUCOSE) Test Performed by Nursing Services 03/07/2020 12:26 EDT [facility] Blood CAPILLARY BLOOD / Unknown 03/07/2020 12:23 EDT 03/07/2020 12:26 EDT us Cal MOISEBS POINT OF CARE TEST O RDERABLES Final Result [facility] [address] [place] [address] * (ABNORMAL) POCT GLUCOSE, INTERFACED (03/07/2020 11:11 EDT) Glucose, POC 187(H) 70 - 100 mg/dL 03/07/2020 11:21 EDT [facility] pinmaker ID [id number] 03/07/2020 11:21 EDT [facility] HN LAB POC COMMENT (GLUCOSE) Test Performed by Nursing Services 03/07/2020 11:21 EDT [facility] Blood CAPILLARY BLOOD / Unknown 03/07/2020 11:11 EDT 03/07/2020 11:21 EDT Catherine Booth MD POINT OF CARE TEST ORDERAB LES Final Result [facility] [address] [place] [address] * (ABNORMAL) POCT GLUCOSE, INTERFACED (03/07/2020 7:37 EDT) Glucose, POC 157(H) 70 - 100 mg/dL 03/07/2020 7:41 EDT [facility] [place]maker [place] [id number] 03/07/2020 7:41 EDT [facility] HN LAB POC COMMENT (GLUCOSE) Test Performed by Nursing Services 03/07/2020 7:41 EDT [facility] Blood CAPILLARY BLOOD / Unknown 03/07/2020 7:37 EDT 03/07/2020 7:41 EDT us Catherine Booth MD POINT OF CARE TEST ORDERAB LES Final Result Performing Organization Address City/[facility] Co de Phone Number [facility] [address] [place] [address] * ELECTROLYTES (03/07/2020 7:02 EDT) Pathologist [facility] Sodium 138 136 - 145 mEq/L 03/07/2020 8:22 EDT [facility] Potassium 4.2 3.5 - 5.0 mEq/L 03/07/2020 8:22 EDT [facility] Chloride 103 96 - 110 mEq/L 03/07/2020 8:22 EDT [facility] CO2 Total 27 22 - 32 mEq/L 03/07/2020 8:22 EDT [facility] Blood VENOUS BLOOD / Unknown Venipuncture / Unknown 03/07/2020 7:02 EDT 03/07/2020 7:46 EDT us Catherine Booth MD CHEMISTRY & BLOOD GAS ORDE RABLES Final Result [facility] [address] [place] [address] * (ABNORMAL) CREATININE (03/07/2020 7:02 EDT) Creatinine 0.44(L) 0.52 - 1.04 mg/dL 03/07/2020 8:22 EDT [facility] eGFR 132 >60 mL/min/1.7 3m2 03/07/2020 8:22 EDT [facility] Comment:eGFR calculated usin g CKD-EPI equation for non- Americans. Multiply eGFR by 1.16 for patients. Blood VENOUS BLOOD / Unknown Venipuncture / Unknown 03/07/2020 7:02 EDT 03/07/2020 7:46 EDT us Catherine Booth MD CHEMISTRY & BLOOD GAS ORDE RABLES Final Result [facility] [address] [place] [address] * BUN (03/07/2020 7:02 EDT) BUN 10 10 - 26 mg/dL 03/07/2020 8:22 EDT [facility] Blood VENOUS BLOOD / Unknown Venipuncture / Unknown 03/07/2020 7:02 EDT 03/07/2020 7:46 EDT us Catherine Booth MD CHEMISTRY & BLOOD GAS ORDE RABLES Final Result [facility] [address] [place] [address] * (ABNORMAL) COMPLETE BLOOD COUNT (03/07/2020 7:02 EDT) WBC 11.29 4.00 - 12.40 K/cmm 03/07/2020 7:55 EDT [facility] RBC 4.29 3.86 - 5.04 M/cmm 03/07/2020 7:55 EDT [facility] Hemoglobin 13.0 11.6 - 15.2 gm/dL 03/07/2020 7:55 EDT [facility] HCT 37.2 34.9 - 44.4 % 03/07/2020 7:55 EDT [facility] MCV 87 81 - 98 fl 03/07/2020 7:55 EDT [facility] MCH 30.3 26.7 - 33.3 pg 03/07/2020 7:55 EDT [facility] MCHC 34.9 32.1 - 35.9 gm/dL 03/07/2020 7:55 EDT [facility] RDW-CV 12.2 <14.7 % 03/07/2020 7:55 EDT [facility] RDW-SD 38.5 <50.4 fl 03/07/2020 7:55 EDT [facility] PLT 387(H) 141 - 377 K/cmm 03/07/2020 7:55 EDT [facility] MPV 10.0 9.5 - 12.7 fl 03/07/2020 7:55 EDT [facility] Blood VENOUS BLOOD / Unknown Venipuncture / Unknown 03/07/2020 7:02 EDT 03/07/2020 7:49 EDT us Catherine Booth MD HEMATOLOGY & PF4 ORDERABLE S Final Result Performing Organization Address City/[facility] Co de Phone Number [facility] [address] [place] [address] * (ABNORMAL) POCT GLUCOSE, INTERFACED (03/06/2020 23:53 EDT) [facility] Glucose, POC 262(H) 70 - 100 mg/dL 03/06/2020 23:57 EDT [facility] [place]maker [place] [id number] 03/06/2020 23:57 EDT [facility] HN LAB POC COMMENT (GLUCOSE) Test Performed by Nursing Services 03/06/2020 23:57 EDT [facility] Blood CAPILLARY BLOOD / Unknown 03/06/2020 23:53 EDT 03/06/2020 23:57 EDT us Carrington Padilla MD POINT OF CARE TEST ORDERAB LES Final Result Performing Organization Address [facility]/ZIP Co de Phone Number [facility] [address] [place] [address] * COVID-19 TEST [facility] PCR (03/06/2020 22:00 EDT) Swab ENTIRE NASOPHARYNX / Unknown Swab / Unknown 03/06/2020 22:00 EDT 03/06/2020 22:05 EDT Siobhan Hare PA-C MICROBIOLOGY - GENER AL ORDERABLES Final Result Performing Organization Address [facility] Co de Phone Number [facility] [address] [place] [address] * COVID-19 TESTING (03/06/2020 22:00 EDT) COVID-19 rt-PCR Result Negative Negative 03/07/2020 1:27 EDT [facility] Comment: This test [...] history, and epidemiological information. Performed on the [employer] Fusion instrument Performing Lab [place] [facility] 03/07/2020 1:27 EDT [facility] Swab ENTIRE NASOPHARYNX / Unknown Swab / Unknown 03/06/2020 22:00 EDT 03/06/2020 22:05 EDT Siobhan Hare PA-C MICROBIOLOGY - GENER AL ORDERABLES Final Result Performing Organization Address [facility] Co de Phone Number [facility] [address] [place] [address] * (ABNORMAL) FRUCTOSAMINE (03/06/2020 19:26 EDT) Fructosamine, S 360(H) 200 - 285 mcmol/L 03/09/2020 8:44 EDT [facility] Comment: Test Performed by: [facility] [address] [place] [address] Tubular Splitting Machine Tender: Wiley Fry M.D. Ph.D.; CLIA# [id number] Blood VENOUS BLOOD / Unknown Venipuncture / Unknown 03/06/2020 19:26 EDT 03/06/2020 19:48 EDT Catherine Booth MD CHEMISTRY & BLOOD GAS CLEMENTE GOLDEN Final Result [facility] [address] [place] [address] * (ABNORMAL) HEMOGLOBIN A1C (03/06/2020 19:26 EDT) Pathologist [facility] Hemoglobin A1c 10.4(H) <5.7 % 03/07/2020 8:23 EDT [facility] Comment: Glycemic Status [...] Avg Glucose 252 mg/dL 0 8:23 EDT [facility] Comment:The eAG represents t he A1c result expressed as average glucose in mg/dL. Blood VENOUS BLOOD / Unknown Venipuncture / Unknown 03/06/2020 19:26 EDT 03/06/2020 19:48 EDT Catherine Booth MD CHEMISTRY & BLOOD GAS ORDE RABLES Final Result [facility] [address] [place] [address] * (ABNORMAL) SED. RATE:WESTERGREN (03/06/2020 19:26 EDT) Sed Rate 25(H) 0 - 20 mm/hr 03/06/2020 23:03 EDT [facility] Blood VENOUS BLOOD / Unknown Venipuncture / Unknown 03/06/2020 19:26 EDT 03/06/2020 19:48 EDT Siobhan Hare PA-C HEMATOLOGY & PF4 ORD ERABLES Final Result Performing Organization Address [facility]/ZIP Co de Phone Number [facility] [address] [place] [address] * (ABNORMAL) C REACTIVE PROTEIN (03/06/2020 19:26 EDT) C-Reactive Protein 27.7(H) <10.0 mg/L 03/06/2020 20:12 EDT [facility] Blood VENOUS BLOOD / Unknown Venipuncture / Unknown 03/06/2020 19:26 EDT 03/06/2020 19:48 EDT Siobhan Hare PA-C CHEMISTRY & BLOOD GA S ORDERABLES Final Result [facility] [address] [place] [address] * (ABNORMAL) COMPREHENSIVE METABOLIC PANEL (CMP) (03/06/2020 19:26 EDT) Sodium 139 136 - 145 mEq/L 03/06/2020 20:12 EDT [facility] Potassium 4.2 3.5 - 5.0 mEq/L 03/06/2020 20:12 EDT [facility] Chloride 101 96 - 110 mEq/L 03/06/2020 20:12 [facility] CO2 Total 27 22 - 32 mEq/L 03/06/2020 20:12 [facility] Glucose 186(H) 70 - 100 mg/dL 03/06/2020 20:12 [facility] BUN 13 10 - 26 mg/dL 03/06/2020 20:12 [facility] Creatinine 0.49(L) 0.52 - 1.04 mg/dL 03/06/2020 20:12 [facility] eGFR 128 >60 mL/min/1.7 3m2 03/06/2020 20:12 [facility] Comment:eGFR calculated gil curtis CKD-EPI equation for non- Americans. Multiply eGFR by 1.16 for patients. Total Protein 7.4 6.3 - 8.2 g/dL 03/06/2020 20:12 [facility] Albumin 4.2 3.4 - 4.9 g/dL 03/06/2020 20:12 [facility] Alkaline Phosphatase 108 38 - 126 U/L 03/06/2020 20:12 [facility] AST 18 15 - 46 U/L 03/06/2020 20:12 [facility] ALT 12 <35 U/L 03/06/2020 20:12 [facility] Bilirubin, Total <0.5 <1.4 mg/dL 03/06/20 20 20:12 [facility] Calcium 9.9 8.5 - 10.5 mg/dL 03/06/2020 20:12 [facility] Calculated Calcium 9.7 8.5 - 10.5 mg/dL 03/06/2020 20:12 [facility] Blood VENOUS BLOOD / Unknown Venipuncture / Unknown 03/06/2020 19:26 EDT 03/06/2020 19:48 EDT us Siobhan Hare PA-C CHEMISTRY & BLOOD GA S ORDERABLES Final Result [facility] [address] [place] [address] * (ABNORMAL) COMPLETE BLOOD COUNT AND DIFFERENTIAL (03/06/2020 19:26 EDT) WBC 16.83(H) 4.00 - 12.40 K/cmm 03/06/2020 19:57 [facility] RBC 4.66 3.86 - 5.04 M/cmm 03/06/2020 19:57 [facility] Hemoglobin 14.1 11.6 - 15.2 gm/dL 03/06/2020 19:57 [facility] HCT 40.6 34.9 - 44.4 % 03/06/2020 19:57 [facility] MCV 87 81 - 98 fl 03/06/2020 19:57 [facility] MCH 30.3 26.7 - 33.3 pg 03/06/2020 19:57 [facility] MCHC 34.7 32.1 - 35.9 gm/dL 03/06/2020 19:57 [facility] RDW-CV 12.2 <14.7 % 03/06/2020 19:57 [facility] RDW-SD 39.2 <50.4 fl 03/06/2020 19:57 [facility] PLT 458(H) 141 - 377 K/cmm 03/06/2020 19:57 [facility] MPV 9.7 9.5 - 12.7 fl 03/06/2020 19:57 [facility] % Neutrophils 62.7 % 03/06/2020 19:57 [facility] % Lymphocytes 27.5 % 03/06/2020 19:57 [facility] % Monocytes 6.8 % 03/06/2020 19:57 [facility] % Eosinophils 2.2 % 03/06/2020 19:57 [facility] % Basophils 0.4 % 03/06/2020 19:57 [facility] % Immature Grans 0.4 % 03/06/20 20 19:57 [facility] Absolute Neutrophils 10.55(H) 2.20 - 8.85 K/cmm 03/06/2020 19:57 T [facility] Absolute Lymphocytes 4.62(H) 1.09 - 3.30 K/cmm 03/06/2020 19:57 EDT [facility] Absolute Monocytes 1.15(H) 0.10 - 0.80 K/cmm 03/06/2020 19:57 EDT [facility] Absolute Eosinophils 0.37 0.03 - 0.61 K/cmm 03/06/2020 19:57 EDT [facility] ABS Basophils 0.07 0.01 - 0.11 K/cmm 03/06/2020 19:57 [facility] Absolute Immature Grans 0.07(H) 0.00 - 0.06 K/cmm 03/06/2020 19:57 EDT [facility] Type of Differential: Auto 03/06/2020 19:57 T [facility] Blood VENOUS BLOOD / Unknown Venipuncture / Unknown 03/06/2020 19:26 EDT 03/06/2020 19:48 EDT Siobhan Hare PA-C PACKAGES & DNA PROBE ORDERABLES Final Result Performing Organization Address City/State/[facility] Co de Phone Number [facility] [address] [place] [address] documented in this encounter Visit Diagnoses Diagnosis [...] PRN, Starting on Tue03/11/20 at 0954, Until 03/12/20 at 1407, Line Care, Routine ceFAZolin in [...] on Tue03/07/20 at 0600, Last dose on Tue03/13/20 at 2200, Type of Therapy: Empiric, Suspected [...] Huston RN) 0103 (Given - Provider: Mallorie Hayward, MARCELO)0837 [...] on Tue03/07/20 at 0000, Until Discontinued, Routine 2129 (Not Given - Provider: Mallorie Hayward RN - Reason: Order parameters not met) 223 (Not Given - Provider: Mallorie Hayward RN - Reason: Order parameters not met) insulin glargine (LANTUS SOLOSTAR) injection pen 30 Units 30 Units, subcutaneous, AT BEDTIME, First dose on Tue03/07/20 at 0000, Until Discontinued, Routine 212 (Given - Provider: Mallorie Hayward RN) 2235 (Given - Provider: Mallorie Hayward RN) metroNIDAZOLE [...] Hayward RN) 0835 (Given - Provider: Jesica Sandy RN) sodium chloride 0.9 % (flush) flush [...]
--- OUTSIDE RECORDS SUMMARY | 2024-05-31 00:45 | XMS_ITS | Encounter Summary ---
Author Organization [facility] Address [address] [place] [address] Care Team Providers Care Bottle Caser Name Role Phone Unavailable Primary Care Provider Unavailabl e Reason for Visit * Reason Comments Foot Ulcer pt has had foot ulce r for 2.5 mo on left great toe, sent here by primary Encounter Details Date Type Department Care Team (Late st Contact Info) Description 03/04/2020 14:31 EDT - 03/04/2020 16:32 EDT Emergency 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 * Diabetic Foot Ulcer (Iraqi) documented in this encounter Medications at Time of Discharge amoxicillin-clav ulanate (AUGMENTIN) 875-125 mg per tablet Take 1 Tab by mouth 2 times daily for 10 days. 20 Tab 03/04/2020 0 blood glucose meter One Touch Verio Flex meter. 1 Each 10/04/2019 2 blood glucose test strips One Touch Verio IQ or other brand compatible with meter and covered by patient's insurance. Testing QID. 100 Each 5 10/01/2019 1 insulin aspart U-100 (NOVOLOG FLEXPEN) 100 [...] patient's insurance. 100 Each 5 10/01/2019 1 sulfamethoxazole -trimethoprim (BACTRIM/CO-TRIM OXAZOLE DS) 800-160 mg per tablet Take 1 Tab by mouth every 12 hours for 10 days. 20 Tab 03/04/2020 0 documented as of this encounter Ordered Prescriptions Prescription Sig Dispense Quantity Refills Last Filled Start Date End Date sulfamethoxazole-tr imethoprim (BACTRIM/CO-TRIMOXA ZOLE DS) 800-160 mg per tablet Take 1 Tab by mouth every 12 hours for 10 days. 20 Tab 03/04/2020 03/12/2020 amoxicillin-clavula huma (AUGMENTIN) 875-125 mg per tablet [...] that she has baseline neuropathy. Patient reports thatnikkie has been seen by here PCP for [...] Stable * Eryn Lunsford RN - 03/04/2020 4683 EDT Patient to ED with c/o worsening [...] fascia. Type II osnaviculare. Scott Harrington MD IMG DIAGNOSTIC IMAGING ORDER HAILEY Final Result * XR TOE LEFT 2 OR MORE [...] ofthe great toe noted. Scott Harrington MD IMG DIAGNOSTIC IMAGING ORDER HAILEY Final Result * BACTERIAL CULTURE, BLOOD (03/04/2020 15:20 EDT) Organism ID No Growth at 5 days 03/09/2020 15:45 EDT [facility] Blood VENOUS BLOOD / Unknown Blood Culture / Unknown 03/04/2020 15:20 EDT 03/04/2020 15:38 EDT Scott Harrington MD MICROBIOLOGY - GENERAL ORDER HAILEY Final Result Performing Organization Address City/[facility]/ZIP Co de Phone Number [facility] [address] [place] [address] * (ABNORMAL) GLUCOSE, SERUM (03/04/2020 15:03 EDT) Glucose 273(H) 70 - 100 mg/dL 03/04/2020 15:40 EDT [facility] Blood VENOUS BLOOD / Unknown Venipuncture / Unknown 03/04/2020 15:03 EDT 03/04/2020 15:11 EDT Scott Harrington MD CHEMISTRY & BLOOD GAS ORDERA BLES Final Result Performing Organization Address City/[facility]/ZIP Co de Phone Number [facility] [address] [place] [address] * (ABNORMAL) CREATININE (03/04/2020 15:03 EDT) Creatinine 0.41(L) 0.52 - 1.04 mg/dL 03/04/2020 15:40 EDT [facility] eGFR 135 >60 mL/min/1.7 3m2 03/04/2020 15:40 EDT [facility] Comment:eGFR calculated gil curtis CKD-EPI equation for non- Americans. Multiply eGFR by 1.16 for patients. Blood VENOUS BLOOD / Unknown Venipuncture / Unknown 03/04/2020 15:03 EDT 03/04/2020 15:11 EDT Scott Harrington MD CHEMISTRY & BLOOD GAS ORDERA BLES Final Result Performing Organization Address [facility] Co de Phone Number [facility] [address] [place] [address] * BUN (03/04/2020 15:03 EDT) BUN 13 10 - 26 mg/dL 03/04/2020 15:43 EDT [facility] Comment: Slight hemolysis identified, interpret with caution as results may be affected due to hemolysis. Blood VENOUS BLOOD / Unknown Venipuncture / Unknown 03/04/2020 15:03 EDT 03/04/2020 15:11 EDT Scott Harrington MD CHEMISTRY & BLOOD GAS ORDERA BLES Final Result Performing Organization Address [facility] Co de Phone Number [facility] [address] [place] [address] * ELECTROLYTES (03/04/2020 15:03 EDT) Sodium 140 136 - 145 mEq/L 03/04/2020 15:43 EDT [facility] Potassium 4.3 3.5 - 5.0 mEq/L 03/04/2020 15:43 EDT [facility] Comment: Slight hemolysis identified, interpret with caution as hemolysis will elevate potassium result. NOTE: Interpret with caution. Prolonged sample storage may alter the result. Chloride 99 96 - 110 mEq/L 03/04/2020 15:43 EDT [facility] CO2 Total 30 22 - 32 mEq/L 03/04/2020 15:43 EDT [facility] Comment: NOTE: Interpret with caution. Prolonged sample storage may alter the result. Blood VENOUS BLOOD / Unknown Venipuncture / Unknown 03/04/2020 15:03 EDT 03/04/2020 15:11 EDT Scott Harrington MD CHEMISTRY & BLOOD GAS ORDERA BLES Final Result Performing Organization Address City/[facility]/ZIP Co de Phone Number [facility] [address] [place] [address] * (ABNORMAL) SED. RATE:WESTERGREN (03/04/2020 15:03 EDT) Pathologist [facility] Sed Rate 54(H) 0 - 20 mm/hr 03/04/2020 16:19 EDT [facility] Blood VENOUS BLOOD / Unknown Venipuncture / Unknown 03/04/2020 15:03 EDT 03/04/2020 15:11 EDT Scott Harrington MD HEMATOLOGY & PF4 ORDERABLES Final Result Performing Organization Address [facility] Co de Phone Number [facility] [address] [place] [address] * (ABNORMAL) C REACTIVE PROTEIN (03/04/2020 15:03 EDT) Pathologist [facility] C-Reactive Protein 33.5(H) <10.0 mg/L 03/04/2020 15:40 EDT [facility] Blood VENOUS BLOOD / Unknown Venipuncture / Unknown 03/04/2020 15:03 EDT 03/04/2020 15:11 EDT Scott Harrington MD CHEMISTRY & BLOOD GAS ORDERA BLES Final Result Performing Organization Address City/[facility]/ZIP Co de Phone Number [facility] [address] [place] [address] * (ABNORMAL) COMPLETE BLOOD COUNT (03/04/2020 15:03 EDT) WBC 14.64(H) 4.00 - 12.40 K/cmm 03/04/2020 15:30 EDT [facility] RBC 4.58 3.86 - 5.04 M/cmm 03/04/2020 15:30 EDT [facility] Hemoglobin 14.1 11.6 - 15.2 gm/dL 03/04/2020 15:30 EDT [facility] HCT 40.0 34.9 - 44.4 % 03/04/2020 15:30 T [facility] MCV 87 81 - 98 fl 03/04/2020 15:30 T [facility] MCH 30.8 26.7 - 33.3 pg 03/04/2020 15:30 [facility] MCHC 35.3 32.1 - 35.9 gm/dL 03/04/2020 15:30 T [facility] RDW-CV 12.3 <14.7 % 03/04/2020 15:30 T [facility] RDW-SD 39.5 <50.4 fl 03/04/2020 15:30 T [facility] PLT 414(H) 141 - 377 K/cmm 03/04/2020 15:30 [facility] MPV 9.8 9.5 - 12.7 fl 03/04/2020 15:30 T [facility] Blood VENOUS BLOOD / Unknown Venipuncture / Unknown 03/04/2020 15:03 EDT 03/04/2020 15:11 EDT us Scott Harrington MD HEMATOLOGY & PF4 ORDERABLES Final Result [facility] [address] [place] [address] * HOLD SST (03/04/2020 15:03 EDT) Hold Hold 03/04/2020 16:15 T [facility] Blood VENOUS BLOOD / Unknown Venipuncture / Unknown 03/04/2020 15:03 EDT 03/04/2020 15:11 EDT Mayank Cruz MD LAB INFO SERVICE AND SUPPORT & PHONE RESULT Final Result [facility] [address] [place] [address] * HOLD LAVENDER TOP (03/04/2020 15:03 EDT) Hold Hold 03/04/2020 16:15 EDT [facility] Blood VENOUS BLOOD / Unknown Venipuncture / Unknown 03/04/2020 15:03 EDT 03/04/2020 15:11 EDT Mayank Cruz MD LAB INFO SERVICE AND SUPPORT & PHONE RESULT Final Result Performing Organization Address City/[facility]/ZIP Co de Phone Number [facility] [address] [place] [address] * HOLD GREEN TOP (03/04/2020 15:03 EDT) Hold Hold 03/04/2020 16:15 EDT [facility] Blood VENOUS BLOOD / Unknown Venipuncture / Unknown 03/04/2020 15:03 EDT 03/04/2020 15:11 EDT Mayank Cruz MD LAB INFO SERVICE AND SUPPORT & PHONE RESULT Final Result Performing Organization Address City/[facility]/ZIP Co de Phone Number [facility] [address] [place] [address] * HOLD BLUE TOP (03/04/2020 15:03 EDT) Hold Hold 03/04/2020 16:15 EDT [facility] Blood VENOUS BLOOD / Unknown Venipuncture / Unknown 03/04/2020 15:03 EDT 03/04/2020 15:11 EDT Mayank Cruz MD LAB INFO SERVICE AND SUPPORT & PHONE RESULT Final Result [facility] [address] [place] [address] documented in this encounter Visit Diagnoses Diagnosis 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, with necrosis of muscle ([facility])- Primary documented in this encounter Administered Medications Inactive Administered Medications - up to 3 most recent administrations Medication Order MAR Action Action Date Dose Rate Site amoxicillin-clavulanate (AUGMENTIN) 875-125 mg per tablet 1 Tab 1 Tablet, oral, NOW X1, 1 dose, On e 03/04/20 at 1615, STAT Given 03/04/2020 16:27 EDT [...] STAT 1627 (Given - Provid er: Eryn Lunsford RN) morphine injection 5 mg (COMPLETED) 5 mg, intravenous, NOW X1, 1 dose, On Tue03/04/20 at 1530, STAT 1541 (Given - Provid er: Eryn Lunsford RN) sulfamethoxazole-trimethoprim (BACTRIM/CO-TRIMOXAZOLE DS) 800-160 mg per tablet 1 Tab (COMPLETED) 1 Tablet, oral, NOW X1, 1 dose, On Tue03/04/20 at 1615, STAT 1627 (Given - Provid er: Eryn Lunsford RN) documented in this encounter Orders Medications Ordered That Stan ht Not Have Been Administered Count Last Ordered Date First Ordered Date morphine (MS IR) tablet 15 mg 1 03/04/2020 documented in this encounter
--- OUTSIDE RECORDS SUMMARY | 2024-05-31 00:45 | XMS_ITS | Encounter Summary ---
Author Organization [facility] Address [address] [place] [address] Care Team Providers Care Drapery And Upholstery Measurer Name Role Phone Unavailable Primary Care Provider Unavailabl e Reason for Visit * Reason Comments Telemedicine Video Visit Sore left great toe Foot Swelling Encounter Details Date Type Department Care Team (Late st Contact Info) Description 03/06/2020 16:00 EDT Telemedicine [facility] Adult Primary Care - [address] [address] Moshe Ferrer MD [address] [facility] [address] [place] [phone] Cellulitis of great toe of left foot [...] with a trained counselor. Tobacco Counseling in [facility] offers free counseling services to residents who are ready to cut back or quit using tobacco. Services include: phone coaching (6-701-PHWT-NOW), online tools and support for those who would like to make changes on their own (www.[facility]), as well as in-person group workshops. Free nicotine replacement therapy is available through all of these resources. To learn more about your options visit www.[facility].org or call 7-885-JHJA-NOW ( ). To speak with an in-person tobacco counselor in [facility] call, [phone]. [place] Resident, please visit: [email or web address]/ I hope you quit smoking. I think [...] 27 mL 3 ??? lancets One Touch [employer] or other brand compatible with lancing device [...] and depression ??? Type 2 diabetes mellitus ([facility]) ??? Chronic left ear pain ??? [...] infection can be identified. Moshe Ferrer MD cupola tapper The concept of ???Telemedicine?? has been described [...] or mental health care. Moshe Ferrer MD cupola tapper documented in this encounter Plan of Treatment Not on file documented as of this encounter Visit Diagnoses Diagnosis Cellulitis of great toe of left foot- Primary Cellulitis and abscess of toe, unspecified documented in this encounter
--- OUTSIDE RECORDS SUMMARY | 2024-05-31 00:45 | XMS_ITS | Encounter Summary ---
Author Organization [facility] Address [address] [place] [address] Care Team Providers Care Nail Galvanizer Name Role Phone Carrington Calderon MD Primary Care Provi anders Abigail Díaz Unavailable Carmelo Hendrickson Unavailable Unavailable Abigail Díaz Unavailable Encounter Details Date Type Department Care Team (Late st Contact Info) Description 03/18/2020 Lab Requisition [facility] Pathology & Laboratory Medicine - [address] [id number] Mushtaq Light, DO 111 [facility], [address] [place] [phone] Encounter for other general examination Social History [...] this encounter Results * (ABNORMAL) SED. RATE:ILEANAERGREN (03/18/2020 10:35 EDT) Sed Rate 37(H) 0 - 20 mm/hr 03/18/2020 18:51 EDT [facility] Comment:Note: Sample greater than 4 hours old (but less than 12 hours) when tested. If refrigerated, sample is stable when tested within 12 hours of collection. Blood VENOUS BLOOD / Unknown Non-Lab Collect / Unknown 03/18/2020 10:35 EDT 03/18/2020 16:41 EDT Mushtaq Light DO HEMATOLOGY & PF4 ORDERABLES Final Result [facility] [address] [place] [phone] * (ABNORMAL) COMPLETE BLOOD COUNT AND DIFFERENTIAL (03/18/2020 10:35 EDT) WBC 11.64 4.00 - 12.40 K/cmm 03/18/2020 17:17 EDT [facility] RBC 4.54 3.86 - 5.04 M/cmm 03/18/2020 17:17 T [facility] Hemoglobin 13.9 11.6 - 15.2 gm/dL 03/18/2020 17:17 T [facility] HCT 40.9 34.9 - 44.4 % 03/18/2020 17:17 T [facility] MCV 90 81 - 98 fl 03/18/2020 17:17 EDT [facility] MCH 30.6 26.7 - 33.3 pg 03/18/2020 17:17 T [facility] MCHC 34.0 32.1 - 35.9 gm/dL 03/18/2020 17:17 [facility] RDW-CV 12.4 <14.7 % 03/18/2020 17:17 [facility] RDW-SD 40.8 <50.4 fl 03/18/2020 17:17 [facility] PLT 462(H) 141 - 377 K/cmm 03/18/2020 17:17 [facility] MPV 10.5 9.5 - 12.7 fl 03/18/2020 17:17 [facility] % Neutrophils 55.0 % 03/18/2020 17:17 [facility] % Lymphocytes 33.0 % 03/18/2020 17:17 [facility] % Monocytes 7.4 % 03/18/2020 17:17 [facility] % Eosinophils 3.4 % 03/18/2020 17:17 [facility] % Basophils 0.7 % 03/18/2020 17:17 [facility] % Immature Grans 0.5 % 03/18/20 20 17:17 [facility] Absolute Neutrophils 6.41 2.20 - 8.85 K/cmm 03/18/2020 17:17 [facility] Absolute Lymphocytes 3.84(H) 1.09 - 3.30 K/cmm 03/18/2020 17:17 [facility] Absolute Monocytes 0.86(H) 0.10 - 0.80 K/cmm 03/18/2020 17:17 [facility] Absolute Eosinophils 0.39 0.03 - 0.61 K/cmm 03/18/2020 17:17 [facility] ABS Basophils 0.08 0.01 - 0.11 K/cmm 03/18/2020 17:17 [facility] Absolute Immature Grans 0.06 0.00 - 0.06 K/cmm 03/18/2020 17:17 [facility] Type of Differential: Auto 03/18/2020 17:17 [facility] Blood VENOUS BLOOD / Unknown Non-Lab Collect / Unknown 03/18/2020 10:35 EDT 03/18/2020 16:41 EDT Mushtaq Light DO PACKAGES & DNA PROBE ORDERA BLES Final Result Performing Organization Address [facility]/ZIP Co de Phone Number [facility] [address] [place] [address] * (ABNORMAL) CREATININE (03/18/2020 10:35 EDT) Creatinine 0.41(L) 0.52 - 1.04 mg/dL 03/18/2020 17:17 EDT [facility] eGFR 135 >60 mL/min/1.7 3m2 03/18/2020 17:17 EDT [facility] Comment:eGFR calculated gil curtis CKD-EPI equation for non- Americans. Multiply eGFR by 1.16 for patients. Blood VENOUS BLOOD / Unknown Non-Lab Collect / Unknown 03/18/2020 10:35 EDT 03/18/2020 16:41 EDT us Mushtaq Light DO CHEMISTRY & BLOOD GAS ORDER HAILEY Final Result Performing Organization Address [facility] Co de Phone Number [facility] [address] [place] [address] * C REACTIVE PROTEIN (03/18/2020 10:35 EDT) C-Reactive Protein <7.0 <10.0 mg/L 03/18/2020 17:17 EDT [facility] Blood VENOUS BLOOD / Unknown Non-Lab Collect / Unknown 03/18/2020 10:35 EDT 03/18/2020 16:41 EDT Mushtaq Light DO CHEMISTRY & BLOOD GAS ORDER HAILEY Final Result [facility] [address] [place] [address] documented in this encounter Visit Diagnoses Diagnosis Encounter for other general examination documented in this encounter Additional Health Concerns Infection Onset Date Last Indicated Resolved Time R/O COVID-19 08/04/2020 08/04/2020 08/04/2020 11:4 0 EST documented as of this encounter Care Teams Nail Galvanizer Relationship Specialty Start Date End Date Carrington Calderon MD 1 [facility] [address] [place] [phone] PCP - General Internal Medicine - Primary Care 12/09/20 Abigail Díaz Airplane Navigator 04/21/23 01/03/24 Carmelo Hendrickson Coordinator 12/01/23 Abigail Díaz Airplane Navigator 01/04/24 documented as of this encounter
--- OUTSIDE RECORDS SUMMARY | 2024-05-31 00:45 | XMS_ITS | Encounter Summary ---
Author Organization [facility] Address [address] [place] [address] Care Team Providers Care Care Administrative Tech Name Role Phone Unavailable Primary Care Provider Unavailabl e Encounter Details Date Type Department Care Team (Late st Contact Info) Description 03/18/2020 Orders Only [facility] Endocrinology - [facility] [address] [place] [address] Sara Zafar, GUSTAVO 62 [facility] [address] [place] [address] Type 2 diabetes mellitus with hyperglycemia, with long-term current use of insulin ([facility]) (Primary Dx) Social History Tobacco [...] 03/06/2020 23:00 WANDAT John Smith RN * Are you blind [...] hyperglycemia, with long-term current use of insulin ([facility])- Primary documented in this encounter
--- OUTSIDE RECORDS SUMMARY | 2024-05-31 00:45 | XMS_ITS | Encounter Summary ---
Author Organization [facility] Address [address] [place] [address] Care Team Providers Care Mold Shaker Name Role Phone Unavailable Primary Care Provider Unavailabl e Reason for Visit * Reason Comments Foot Problem Encounter Details Date Type Department Care Team (Late st Contact Info) Description 03/25/2020 8:30 EDT Office Visit [place] [facility] Foot & Ankle Program - [address] [address] Elza Navarro DPM [address] [place] [phone] Ulcer of great toe, left, with necrosis of bone ([facility]) (Primary Dx); Type 2 diabetes mellitus with diabetic polyneuropathy, with long-term current use of insulin ([facility]) Social History Tobacco Use Types Packs/Day [...] Progress Notes * Elza Navarro DPM - 03/25/2020 0830 EDT Images from the original note were not included. Cristy Luo is a very pleasant 35 y.o. female patient who presents for follow up left great toe ulcer, osteomyelitis. She reports that she has been doing well. Pain in the toe has resolved, andnikkie has been very pleased with its. She [...] Osteomyelitis of great toe of left foot ([facility]) 03/12/2020 Priority: Medium ??? Diabetic foot ulcer associated with diabetes mellitus due to underlying condition ([facility]) 03/07/2020 Priority: Medium ??? Diabetic foot infection ([facility]) 03/06/2020 Priority: Medium ??? Diabetic foot ulcer ([facility]) 03/06/2020 Priority: Medium ??? Cellulitis of great toe of left foot 11/26/2019 Priority: Medium ??? Chronic midline low back pain without sciatica 11/26/2019 Priority: Medium ??? Chronic left ear pain 09/04/2015 Priority: Medium ??? Encounter for sterilization 11/20/2019 ??? Family history of rheumatoid arthritis 09/04/2015 ??? Type 2 diabetes mellitus ([facility]) 09/03/2015 ??? Anxiety and depression 05/12/2010 ??? Migraine with aura and without status migrainosus, not intractable Past Medical History: Diagnosis Date ??? Anxiety ??? Arthritis 12/05/19- Spine- told years ago ??? Diabetes ([facility]) A1c 10.3 on 11/28/2019 ??? [...] with necrosis of bone ([facility]) 2. Type 2 diabetes mellitus with diabetic polyneuropathy, with long-term current use of insulin ([facility]) No orders of the defined [...] prepared with speech recognition software or keyboard head of data techniques. Minor irregularities or keyboarding misprints may be present * Swathi Tesfaye LPN - 03/25/2020 0830 EDT Call to [facility] with wound care orders. SWATHI TESFAYE LPN documented in this encounter Plan of Treatment Not on file documented as of this encounter Visit Diagnoses Diagnosis Ulcer of great toe, left, with necrosis of bone ([facility])- Primary Type 2 diabetes mellitus with diabetic polyneuropathy, with long-term current use of insulin ([facility]) documented in this encounter
--- OUTSIDE RECORDS SUMMARY | 2024-05-31 00:46 | XMS_ITS | Encounter Summary ---
Author Organization [facility] Address [address] [place] [address] Care Team Providers Care Co Founder And Chairman Name Role Phone Unavailable Primary Care Provider Unavailabl e Encounter Details Date Type Department Care Team (Late st Contact Info) Description 11/28/2019 Orders Only [facility] Radiology - [address] [place] [address] [place] [address] Tracey Veloz MD [address] [place], [place] [phone] Social History Tobacco Use Types Packs/Day Years [...]
--- OUTSIDE RECORDS SUMMARY | 2024-05-31 00:46 | XMS_ITS | Encounter Summary ---
Author Organization [facility] Address [address] [place] [address] Care Team Providers Care Wastewater Treatment Supervisor Name Role Phone None, Provider Primary Care Provider Unavailabl e Reason for Visit * Reason Onset Date Comments Other 10/15/2019 Encounter Details Date Type Department Care Team (Late st Contact Info) Description 10/15/2019 Telephone [facility] OBGYN Services - [facility] [address] [place] [address] Jordyn Wolfe, MARCELO Other Social History Tobacco Use Types Packs/Day Years Used Date Smoking Tobacco: Every Day Cigarettes 0.3 13.6 Started: 11/10/2010 Smokeless Tobacco: Never Alcohol Use [...] in this encounter Care Teams Wastewater Treatment Supervisor Relationship Specialty Start Date End Date None, Provider PCP - General 06/18/19 11/25/19 documented as of this encounter
--- OUTSIDE RECORDS SUMMARY | 2024-05-31 00:46 | XMS_ITS | Encounter Summary ---
Author Organization [facility] Address [address] [place] [address] Care Team Providers Care Crew Car Driver Name Role Phone Unavailable Primary Care Provider Unavailabl e Reason for Visit * Reason Onset Date Comments Ankle Pain 12/04/2019 Encounter Details Date Type Department Care Team (Late st Contact Info) Description 12/04/2019 Telephone [facility] Adult Primary Care - [address] [phone] Tonja Alejandro PA-C [facility] [address] [place] [phone] Ankle Pain Social History Tobacco Use [...] Encounter - Tonja Alejandro PA-C - 12/04/2019 5 EDT Spoke with patient on the phone. [...]
--- OUTSIDE RECORDS SUMMARY | 2024-05-31 00:46 | XMS_ITS | Encounter Summary ---
Author Organization [facility] Address [address] [place] [address] Care Team Providers Care Real Estate Acquisition Analyst Name Role Phone None, Provider Primary Care Provider Unavailabl e Reason for Visit * Reason Onset Date Comments Surgery Scheduling 11/20/2019 Encounter Details Date Type Department Care Team (Late st Contact Info) Description 11/20/2019 Telephone [facility] OBGYN Services - [facility] [address] [place], [place] [phone] Pamela Sifuentes MD [address] [place] [phone] Surgery Scheduling Social History Tobacco Use [...] Frequency of Binge Drinking Never 10/06 Comments No Sex and Gender Information Value [...] in this encounter Care Teams Real Estate Acquisition Analyst Relationship Specialty Start Date End Date None, Provider PCP - General 06/18/19 11/25/19 documented as of this encounter
--- OUTSIDE RECORDS SUMMARY | 2024-05-31 00:46 | XMS_ITS | Encounter Summary ---
Author Organization [facility] Address [address] [place] [address] Care Team Providers Care Speech Pathologist Name Role Phone Unavailable Primary Care Provider Unavailabl e Reason for Referral * Radiology Services (Routine) - Closed Specialty Diagnoses / Procedures Referred By Contac t Referred To Contact Radiology Diagnoses Left foot pain Sore on toe (HCC-CMS) Procedures MR FOOT W WO CONTRAST LEFT Tonja Alejandro PA-C Phone: tel: fax: Referral ID Status Reason Start Date Expiration Date Visits Re quested Visits Authorized [id number] Closed 11/28/2019 1 1 Reason for Visit * Radiology Services (Routine) - Closed Specialty Diagnoses / Procedures Referred By Contac t Referred To Contact Radiology Diagnoses Left foot pain Sore on toe (HCC-CMS) Procedures MR FOOT W WO CONTRAST LEFT Tonja Alejandro PA-C Phone: tel: fax: Referral ID Status Reason Start Date Expiration Date Visits Re quested Visits Authorized [id number] Closed 11/28/2019 1 1 Encounter Details Date Type Department Care Team (Latest Contact Info) Description 12/05/2019 6:33 EDT - 12/05/2019 10:29 EDT Hospital Encounter [facility] Radiology [facility] - Main [place] [address] [place], [place] [phone] Left foot pain; Sore on toe Discharge [...] 90 days. 180 Tab 1 11/26/2019 0 traMADoL (ULTRAM) 50 mg tablet Take 1 Tab by mouth every 6 hours as needed for up to 7 days for Pain. Daily Max: 200 mg 28 Tab 11/28/2019 0 documented as of this encounter Discharge Disposition Disposition Code Departure Means Destination Home or Self Care documented in this encounter Plan of Treatment Not on file documented as of this encounter Procedures Procedure Name Priority Date/Time Associated Diagnosis Comments MR FOREFOOT/MIDFOOT W WO CONTRAST LEFT Routine 12/05/2019 8:09 [...] dorsal and medial aspects of the forefoot. us Tonja Alejandro PA-C IMG MRI ORDERABLES F inal Result documented in this encounter Visit Diagnoses Diagnosis Left foot pain Pain in limb Sore on toe (HCC-CMS) documented in this encounter Administered Medications [...]
--- OUTSIDE RECORDS SUMMARY | 2024-05-31 00:46 | XMS_ITS | Encounter Summary ---
Author Organization [facility] Address [address] [place] [address] Care Team Providers Care Foreign Exchange Trader Name Role Phone None, Provider Primary Care Provider Unavailabl e Reason for Visit * Reason Comments Social Work Encounter Details Date Type Department Care Team (Late st Contact Info) Description 10/16/2019 Community Health Team [facility] OBGYN Services - [address] [address] Eryn Diaz Social History Tobacco Use Types [...] 11/10/2018 9:28 EDT documented in this encounter Progress Notes * Eryn Diaz [...] lbs. Pt [facility] that she believes caused SI/SP. Pt rep she was on a bridge in [place] and about to jump to lots of [...] SW rec pt at least check out [employer] website - described this thx practice was founded by 2 Mom therapists who've exp losses themselves. Disc psychiatric support avail via PMHNP Denita Brantley and how to sched. Also disc family may be eligible for 3 Squares and unemployment benefits now that eligibility criteria has been relaxed d/t crisis. Offered SW support with all the aforementioned which pt declines ATT. Pt req another supportive check-in via zoom after her 11/01 appt which this SW will provide. Care coord with MARCELO Wolfe via ph and email. Passed along pt's req to learn the dates of her 7 miscarriages as pt and Fermin plan to have a ceremonial event to close this chapter of their lives; if Jordyn is unable to access dates, SW will refer pt to contact [employer] to facilitate record request. Jordyn will submit [facility] SW referral later this week; SW will zandra pt status as pending for now. Next SW appt 11/04 via ph. SW will email pt zoom meeting info ([email or web address]). [facility] Total Time: 1 hour total 35 min via ph with pt 10 min care coord 15 min charting Referral: Yobany José and [facility] Denita Brantley Follow up: Date: Tuesday, November 05, 2019 Time: 10 AM With: Eryn Diaz Product Blending Supervisor Location: ph Status: Pending documented in this encounter Plan of Treatment Not on file documented as of this encounter Visit Diagnoses Not on filedocumented in this encounter Care Teams Foreign Exchange Trader Relationship Specialty Start Date End Date None, Provider PCP - General 06/18/19 11/25/19 documented as of this encounter
--- OUTSIDE RECORDS SUMMARY | 2024-05-31 00:46 | XMS_ITS | Encounter Summary ---
Author Organization [facility] Address [address] [place] [address] Care Team Providers Care Pediatrics Physician Name Role Phone Unavailable Primary Care Provider Unavailabl e Reason for Visit * Reason Onset Date Comments Medication Problem 11/27/2019 Encounter Details Date Type Department Care Team (Late st Contact Info) Description 11/27/2019 Telephone [facility] Adult Primary Care - [address] [phone] Tonja Alejandro PA-C [employer] [facility] [address] [place] [phone] Medication Problem Social History Tobacco Use [...] Last Filled Start Date End Date insulin glargine (LANTUS SOLOSTAR) 100 unit/mL (3 mL) injection pen Inject 25 Units into the skin at bedtime for 90 days. 15 mL 3 11/27/2019 0 documented in this encounter Miscellaneous Notes * Telephone Encounter - Donna Porras - 11/27/2019 0903 EDT [facility] states insulin glargine is dispensed in [...]
--- OUTSIDE RECORDS SUMMARY | 2024-05-31 00:46 | XMS_ITS | Encounter Summary ---
Author Organization [facility] Address [address] [place] [address] Care Team Providers Care Sticker Hand Name Role Phone None, Provider Primary Care Provider Unavailabl e Reason for Visit * Reason Comments Advice Only patient states I w ant a tubal, cut, tie, burn. I want no more chances of or miscarriage Encounter Details Date Type Department Care Team (Latest Contact Info) Description 11/02/2019 8:15 EDT Initial consult [facility] OBGYN Services - [facility] [address] [place] [address] Patricia Sifuentes MD [address] [place] [phone] Consultation for female sterilization (Primary Dx) [...] documented in this encounter Progress Notes * Patricia Alvarez [...] 11/02/2019 9:08 Obstetrics & Gynecology, PGY-1 Pager [phone] * Callum Callejas MD - 11/02/2019 0815 [...] documented as of this encounter Care Teams Sticker Hand Relationship Specialty Start Date End Date None, Provider PCP - General 06/18/19 11/25/19 documented as of this encounter
--- OUTSIDE RECORDS SUMMARY | 2024-05-31 00:46 | XMS_ITS | Encounter Summary ---
Author Organization [facility] Address [address] [place] [address] Care Team Providers Care Kennel Assistant Name Role Phone Unavailable Primary Care Provider Unavailabl e Encounter Details Date Type Department Care Team (Latest Contact Info) Description 01/01/2020 8:37 EDT - 01/01/2020 23:59 EDT [address] Encounter [address] [place], [place] [phone] Discharge Disposition: Home or Self Care Social [...] mL 3 12/04/2019 2 lancets One Touch [employer] or other brand compatible with lancing device [...] and around the ankle. us Elza Navarro DPDickson IMG DIAGNOSTIC IMAGING ORDERABL [...] and around the ankle. us Elza Navarro DPDickson IMG DIAGNOSTIC IMAGING ORDERABL ES Final Result documented in this encounter Visit Diagnoses Not on filedocumented in this encounter
--- OUTSIDE RECORDS SUMMARY | 2024-05-31 00:46 | XMS_ITS | Encounter Summary ---
Author Organization [facility] Address [address] [place] [address] Care Team Providers Care Label Cutter Name Role Phone None, Provider Primary Care Provider Unavailabl e Reason for Visit * Reason Comments Social Work Encounter Details Date Type Department Care Team (Late st Contact Info) Description 10/12/2019 Community Health Team [facility] OBGYN Services - [address] [address] Eryn Diaz Social History Tobacco Use Types [...] Progress Notes * Eryn Diaz - 10/12/2019 5048 EDT SW rec'd call from RN Jordyn Wolfe who is going to submit I referral. Disc pt's need for care coord [...] step francois, and 3 foster children in [place]. Pt grateful Fermin took the children to [...] the following re care coordination: - Disc [facility] therapeutic group practice in [place] that specializes in working with women who have exp losses - Disc psychiatric and add'l loss support that can be provided via [facility] or Dr. 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 Fermin is a mechanical expert ($15/hour) and still working. SW disc it's [...] couns in the interim. SW will copy Jemal as a fyi. [facility] Total Time: 55 min total 20 min via ph with pt 20 min care coord 15 min charting Referral: n/a Follow up: Date: Wednesday, October 16, 2019 Time: 11:30 AM With: Eryn Diaz Mirror Installer Location: ph Status: Active documented in this encounter Plan of Treatment Not on file documented as of this encounter Visit Diagnoses Not on filedocumented in this encounter Care Teams Label Cutter Relationship Specialty Start Date End Date None, Provider PCP - General 06/18/19 11/25/19 documented as of this encounter
--- OUTSIDE RECORDS SUMMARY | 2024-05-31 00:46 | XMS_ITS | Encounter Summary ---
Author Organization [facility] Address [address] [place] [address] Care Team Providers Care Drugless Physician Name Role Phone Unavailable Primary Care Provider Unavailabl e Reason for Visit * Reason Onset Date Comments Labs Only 12/05/2019 Encounter Details Date Type Department Care Team (Late st Contact Info) Description 12/05/2019 Telephone [facility] OBGYN Services - [address] [phone] Charu Flynn MD [address] [facility], [address] [place] [phone] Labs Only Social History Tobacco [...] you can call Pre Op back at [phone]. documented in this encounter Plan of Treatment Not on file documented as of this encounter Visit Diagnoses Not on filedocumented in this encounter
--- OUTSIDE RECORDS SUMMARY | 2024-05-31 00:46 | XMS_ITS | Encounter Summary ---
Author Organization [facility] Address [address] [place] [address] Care Team Providers Care Filling Station Attendant Name Role Phone None, Provider Primary Care Provider Unavailabl e Reason for Visit * Reason Comments Social Work Encounter Details Date Type Department Care Team (Late st Contact Info) Description 11/05/2019 Community Health Team [facility] OBGYN Services - [address] [id number] Eryn Diaz Social History Tobacco Use Types [...] and her grieving process. Pt lives in [place] with Fermin, her 8 yo step francois (his bio) Emiliana, and their 3 foster children: 4 yo francois Sparkle, 12 yo francois Cassie, and 14 yo son Miky. Couple planning to adopt Sparkle and Miky who are sibs; unsure plan for Cassie - would like to adopt if possible. Pt working with ESTHELA Bonilla with whom she has a good relationship. Pt disc being uncomfortable accepting financial support from DCF and SW enc pt to accept anything offered and ask for what omi cage needs! Pt rec'd COVID EBT card which has helped with groceries and pt glad Fermin's unemployment pay finally came through. Pt disc Emiliana's bio lillian Jensen who hasn't been a great Mom to [...] dragonfly tattoos for birthday - Checked out [facility] thx practice that SW had rec - declines being connected with a thx ATT, but open to it if needed - rep very self-aware and knows resources - Pt participating in a loss support group on [employer] that has been helpful - Pt req short term couns with this SW - planned for an appt before her tubal procedure and 1 after SW mailed pt a gas card and contact info. Next SW appt 11/25 via zoom - emailed pt link. [facility] Total Time: 1.5 hours total 1 hour, 5 min via zoom with pt 5 min via email with pt 20 min charting Referral: [facility] Follow up: Date: Tuesday, November 26, 2019 Time: 10 AM With: Eryn Diaz Soda Jerker Location: zoom Status: Active documented in this encounter Plan of Treatment Not on file documented as of this encounter Visit Diagnoses Not on filedocumented in this encounter Care Teams Filling Station Attendant Relationship Specialty Start Date End Date None, Provider PCP - General 06/18/19 11/25/19 documented as of this encounter
--- OUTSIDE RECORDS SUMMARY | 2024-05-31 00:46 | XMS_ITS | Encounter Summary ---
Author Organization [facility] Address [address] [place] [address] Care Team Providers Care Undercollar Maker Name Role Phone None, Provider Primary Care Provider Unavailabl e Reason for Visit * Reason Comments Procedure SARAH * Consult (3 - 10 Business Days) - Closed Specialty Diagnoses / Procedures Referred By Contlesli t Referred To Contact Diagnoses in first trimester Andrés Mcfarlane MD Phone: tel: fax: [facility] Obstetrics & Midwifery - [address] [address] Phone: tel: fax: Referral ID Status Reason Start Date Expiration Date V isits Requested Visits Authorized [id number] Closed Specialty Services Required 10/11/2019 1 1 Encounter Details Date Type Department Care Team (Late st Contact Info) Description 10/12/2019 15:00 EDT Initial consult [facility] OBGYN Services - [address] [id number] David Martínez MD [address] [place] [address], [address] [place] [address] Missed (Primary Dx) Social History [...] documented in this encounter Progress Notes * David Martínez [...] consent, the patient was placed on the TELECOMMUNICATION ENGINEER exam table and a bedside ultrasound performed. [...] Primary documented in this encounter Care Teams Undercollar Maker Relationship Specialty Start Date End Date None, Provider PCP - General 06/18/19 11/25/19 documented as of this encounter
--- OUTSIDE RECORDS SUMMARY | 2024-05-31 00:46 | XMS_ITS | Encounter Summary ---
Author Organization [facility] Address [address] [place] [address] Care Team Providers Care Grain Sacker Name Role Phone None, Provider Primary Care Provider Unavailabl e Reason for Visit * Reason Onset Date Comments Other 10/12/2019 Follow up call , seen in ED with vaginal bleeding, miscarriage. Encounter Details Date Type Department Care Team (Late st Contact Info) Description 10/12/2019 Telephone [facility] OBGYN Services - [facility] [address] [place] [address] Jordyn Wolfe, MARCELO Other (Follow up call [...] do this today. Per communication with nurse manager imaging Mary, will be able to staff procedure today. Appointment set up for [address] Martínez will call patient to confirm plan. * Telephone Encounter - Jordyn Wolfe RN - 10/12/2019 1027 EDT Call to social science research assistant Niru Diaz. Niru will call patient as follow up eligibility counselor to miscarriage. * Telephone Encounter - [...] on filedocumented in this encounter Care Teams Grain Sacker Relationship Specialty Start Date End Date None, Provider PCP - General 06/18/19 11/25/19 documented as of this encounter
--- OUTSIDE RECORDS SUMMARY | 2024-05-31 00:46 | XMS_ITS | Encounter Summary ---
Author Organization [facility] Address [address] [place] [address] Care Team Providers Care Priming Mixture Carrier Name Role Phone Unavailable Primary Care Provider Unavailabl e Reason for Visit * Reason Onset Date Comments Results 11/30/2019 Encounter Details Date Type Department Care Team (Late st Contact Info) Description 11/30/2019 Telephone [facility] Adult Primary Care - [address] [id number] Tonja Alejandro PA-C [address] [place] [address] [place] [phone] Results Social History Tobacco Use Types [...]
--- OUTSIDE RECORDS SUMMARY | 2024-05-31 00:46 | XMS_ITS | Encounter Summary ---
Author Organization [facility] Address [address] [place] [address] Care Team Providers Care Project Development Director Name Role Phone None, Provider Primary [...] filedocumented in this encounter Care Teams Project Development Director Relationship Specialty Start Date End Date None, Provider PCP - General 06/18/19 11/25/19 documented as of this encounter
--- OUTSIDE RECORDS SUMMARY | 2024-05-31 00:46 | XMS_ITS | Encounter Summary ---
Author Organization [facility] Address [address] [place] [address] Care Team Providers Care Slot Floor Person Name Role Phone Unavailable Primary Care Provider Unavailabl e Encounter Details Date Type Department Care Team (Late st Contact Info) Description 11/28/2019 16:00 EDT Phlebotomy Only [facility] Laboratory Services - [address] [address] [facility] Type 2 diabetes mellitus with other specified complication, unspecified whether detention insulin use ([facility]); Anxiety and depression; Left foot pain Social [...] 11/28/2019 15:56 EDT Anxiety and depression URINE [id number] RATIO (ACR) Routine 11/28/2019 15:56 EDT Type 2 diabetes mellitus with other specified complication, unspecified whether detention insulin use ([facility]) COMPLETE BLOOD COUNT AND DIFFERENTIAL Routine 11/28/2019 15:56 EDT Left foot pain C REACTIVE PROTEIN Routine 11/28/2019 15 :56 EDT Left foot pain HEMOGLOBIN A1C Routine 11/28/2019 15:56 EDT Type 2 diabetes mellitus with other specified complication, unspecified whether detention insulin use ([facility]) LIPID PROFILE (INCLUDES CHOLESTEROL, TRIGLYCERIDES, HDL, LDL) Routine 11/28/2019 15:56 EDT Type 2 diabetes mellitus with other specified complication, unspecified whether termite helper insulin use ([facility]) COMPREHENSIVE METABOLIC PANEL (CMP) Routine 11/28/2019 15:56 EDT Type 2 diabetes mellitus with other specified complication, unspecified whether termite helper insulin use ([facility]) documented in this encounter Results * (ABNORMAL) DIFFERENTIAL, AUTOMATED MANUAL (11/28/2019 15:56 EDT) % Neutrophils 45.7 % 11/28/2019 17:50 [facility] % Banded Neutrophils 0.9 % 11/28/2019 17:50 [facility] % Lymphocytes 37.1 % 11/28/2019 17:50 [facility] % Atypical Lymphocytes 7.7 % 11/28/2019 17:50 [facility] % Monocytes 4.3 % 11/28/2019 17:50 [facility] % Eosinophils 2.6 % 11/28/2019 17:50 [facility] % Basophils 1.7 % 11/28/2019 17:50 [facility] Absolute Neutrophils 6.57 2.20 - 8.85 K/cmm 11/28/2019 17:50 [facility] Absolute Bands 0.13 K/cmm 11/28/2019 17:50 [facility] Absolute Lymphocytes 5.33(H) 1.09 - 3.30 K/cmm 11/28/2019 17:50 [facility] Absolute Atypical Lymphocytes 1.11 K/cmm 11/28/2019 17:50 [facility] Absolute Monocytes 0.62 0.10 - 0.80 K/cmm 11/28/2019 17:50 [facility] Absolute Eosinophils 0.37 0.03 - 0.61 K/cmm 11/28/2019 17:50 [facility] ABS Basophils 0.24(H) 0.01 - 0.11 K/cmm 11/28/2019 17:50 [facility] Blood VENOUS BLOOD / Unknown Venipuncture / Unknown 11/28/2019 15:56 EDT 11/28/2019 15:56 EDT us Tonja Alejandro PA-C HEMATOLOGY & PF4 ORD ERABLES Final Result [facility] [address] [place] [address] * (ABNORMAL) C REACTIVE PROTEIN (11/28/2019 15:56 EDT) C-Reactive Protein 10.6(H) <10.0 mg/L 11/28/2019 17:12 [facility] Blood VENOUS BLOOD / Unknown Venipuncture / Unknown 11/28/2019 15:56 EDT 11/28/2019 15:56 EDT Tonja Alejandro PA-C CHEMISTRY & BLOOD GA S ORDERABLES Final Result [facility] [address] [place] [address] * (ABNORMAL) COMPREHENSIVE METABOLIC PANEL (CMP) (11/28/2019 15:56 EDT) Sodium 134(L) 136 - 145 mEq/L 11/28/2019 17:12 [facility] Potassium 4.2 3.5 - 5.0 mEq/L 11/28/2019 17:12 [facility] Chloride 100 96 - 110 mEq/L 11/28/2019 17:12 [facility] CO2 Total 28 22 - 32 mEq/L 11/28/2019 17:12 [facility] Glucose 301(H) 70 - 100 mg/dL 11/28/2019 17:12 [facility] BUN 14 10 - 26 mg/dL 11/28/2019 17:12 [facility] Creatinine 0.57 0.52 - 1.04 mg/dL 11/28/2019 17:12 [facility] eGFR 121 >60 mL/min/1.7 3m2 11/28/2019 17:12 [facility] Comment:eGFR calculated gil curtis CKD-EPI equation for non- Americans. Multiply eGFR by 1.16 for patients. Total Protein 7.0 6.3 - 8.2 g/dL 11/28/2019 17:12 [facility] Albumin 3.9 3.4 - 4.9 g/dL 11/28/2019 17:12 [facility] Alkaline Phosphatase 100 38 - 126 U/L 11/28/2019 17:12 [facility] AST 17 15 - 46 U/L 11/28/2019 17:12 [facility] ALT 14 <35 U/L 11/28/2019 17:12 [facility] Bilirubin, Total <0.5 <1.4 mg/dL 11/28/19 20 17:12 [facility] Calcium 9.8 8.5 - 10.5 mg/dL 11/28/2019 17:12 [facility] Calculated Calcium 9.9 8.5 - 10.5 mg/dL 11/28/2019 17:12 [facility] Blood VENOUS BLOOD / Unknown Venipuncture / Unknown 11/28/2019 15:56 EDT 11/28/2019 15:56 EDT Tonja Alejandro PA-C CHEMISTRY & BLOOD GA S ORDERABLES Final Result [facility] [address] [place] [address] * (ABNORMAL) COMPLETE BLOOD COUNT AND DIFFERENTIAL (11/28/2019 15:56 EDT) WBC 14.38(H) 4.00 - 12.40 K/cmm 11/28/2019 17:04 [facility] RBC 4.69 3.86 - 5.04 M/cmm 11/28/2019 17:04 [facility] Hemoglobin 14.3 11.6 - 15.2 gm/dL 11/28/2019 17:04 [facility] HCT 40.8 34.9 - 44.4 % 11/28/2019 17:04 [facility] MCV 87 81 - 98 fl 11/28/2019 17:04 [facility] MCH 30.5 26.7 - 33.3 pg 11/28/2019 17:04 [facility] MCHC 35.0 32.1 - 35.9 gm/dL 11/28/2019 17:04 EDT [facility] RDW-CV 12.0 <14.7 % 11/28/2019 17:04 EDT [facility] RDW-SD 38.4 <50.4 fl 11/28/2019 17:04 EDT [facility] PLT 414(H) 141 - 377 K/cmm 11/28/2019 17:04 EDT [facility] MPV 10.1 9.5 - 12.7 fl 11/28/2019 17:04 EDT [facility] Type of Differential: Manual 11/28/2019 17:04 EDT [facility] Blood VENOUS BLOOD / Unknown Venipuncture / Unknown 11/28/2019 15:56 EDT 11/28/2019 15:56 EDT Tonja Alejandro PA-C PACKAGES & DNA PROBE ORDERABLES Final Result [facility] [address] [place] [address] * (ABNORMAL) HEMOGLOBIN A1C (11/28/2019 15:56 EDT) Hemoglobin A1c 10.3(H) <5.7 % 11/29/2019 9:15 EDT [facility] Comment: Glycemic Status References: [...] Avg Glucose 249 mg/dL 0 9:15 EDT [facility] Comment: The eAG represents the A1c result expressed as average glucose in mg/dL. Blood VENOUS BLOOD / Unknown Venipuncture / Unknown 11/28/2019 15:56 EDT 11/28/2019 15:56 EDT Tonja DAWSON-C CHEMISTRY & BLOOD GA S ORDERABLES Final Result Performing Organization Address [facility] de Phone Number [facility] [address] [place] [address] * THYROID CASCADE (11/28/2019 15:56 EDT) TSH 0.64 0.47 - 4.68 uIU/mL 11/28/2019 17:44 EDT [facility] Blood VENOUS BLOOD / Unknown Venipuncture / Unknown 11/28/2019 15:56 EDT 11/28/2019 15:56 EDT Narrative [facility] - 11/28/2019 17:44 EDT NOTE: TSH [place] is not recommended for patients in which pituitary or hypothalamic disorders are suspected. The results of this assay can be falsely lowered due to the consumption of Biotin. Tonja Alejandor PA-C CHEMISTRY & BLOOD GA S ORDERABLES Final Result Performing Organization Address [facility] de Phone Number [facility] [address] [place] [address] * LIPID PROFILE (INCLUDES CHOLESTEROL, TRIGLYCERIDES, HDL, LDL) (11/28/2019 15:56 EDT) Cholesterol 179 See Note mg/dL 11/28/2019 17:12 EDT [facility] Comment: Acceptable: ?<200 mg/dL Borderline High: 200-239 mg/dL High: ?> or = 240 mg/dL HDL 38 See Note mg/dL 11/28/2019 17:12 EDT [facility] Comment: Low: ? <40 mg/dL Normal: ??40-60 mg/dL High: ?>60 mg/dL LDL, Calculated 61 See Note mg/dL 11/28/2019 17:12 [facility] Comment: Optimal: ? <100 mg/dL Near Optimal: ?100-129 mg/dL Borderline High: 130-159 mg/dL High: ?160-189 mg/dL Very High: ? > or = 190 mg/dL Triglyceride 398 See Note mg/dL 11/28/2019 17:12 EDT [facility] Comment: Normal: ? <150 mg/dL Borderline High: ??150 - 199 mg/dL High: ? 200 - 499 mg/dL Very High: ?> or = 500 mg/dL Chol/HDL Ratio 4.7 See Note 11/28/2019 17:12 [facility] Comment: No reference range has been established for CHOL/HDL ratio. Non HDL Cholesterol 141 See Note mg/dL 11/28/2019 17:12 [facility] Comment: Desirable: ?<130 mg/dL Borderline High: ??130-159 mg/dL High: ? 160-189 mg/dL Very High: ?> or = 190 mg/dL Blood VENOUS BLOOD / Unknown Venipuncture / Unknown 11/28/2019 15:56 EDT 11/28/2019 15:56 EDT us Tonja Alejandro PA-C CHEMISTRY & BLOOD GA S ORDERABLES Final Result [facility] [address] [place] [address] * (ABNORMAL) ALBUMIN, URINE (11/28/2019 15:56 EDT) Albumin, Urine 11.3 See Note mg/dL 2019 16:47 EDT [facility] Comment: NOTE: Reference range not established Creatinine, Urine 143.1 See Note mg/dL 11/28/2019 16:47 EDT [facility] Comment: NOTE: Reference range not established Lab Urine Albumin to Creatinine Ratio 79(H) <30 ug/mg Creatinine 11/28/2019 16:47 EDT [facility] Comment: Urine Albumin/Creatinine Ratio: Normal: <30 ug/mg Creatinine Moderately increased albuminuria: 30-300 ug/mg Creatinine [place] increased albuminuria: >300 ug/mg Creatinine Urine URINE SPECIMEN OBTAINED BY CLEAN CATCH PROCEDURE / Unknown Urine Collect / Unknown 11/28/2019 15:56 EDT 11/28/2019 15:56 EDT Tonja Alejandro PA-C CHEMISTRY & BLOOD GA S ORDERABLES Final Result [facility] [address] [place] [address] documented in this encounter Visit Diagnoses Diagnosis Type 2 diabetes mellitus with other specified complication, unspecified whether termite helper insulin use ([facility]) Anxiety and depression Dysthymic disorder Left foot pain Pain in limb documented in this encounter
--- OUTSIDE RECORDS SUMMARY | 2024-05-31 00:46 | XMS_ITS | Encounter Summary ---
Author Organization [facility] Address [address] [place] [address] Care Team Providers Care Manager Primary Care Name Role Phone Unavailable Primary Care Provider Unavailabl e Reason for Referral * Consult (Routine) - Specialty Report Received Specialty Diagnoses / Procedures Referred By Kit t Referred To Contact Endocrinology Diagnoses Type 2 diabetes mellitus with other specified complication, unspecified whether intermediate designer insulin use ([facility]) Teodoro Alejandro PA-C [address] [place] [address] Phone: tel: fax: [facility] Endocrinology - [address] [address] Phone: tel: fax: Referral ID Status Reason Start Date Expiration Date Visits Requested Visits Authorized [id number] Specialty Report Received Specialty Services Required 11/27/2019 [...] Team (Late st Contact Info) Description 11/26/2019 15:30 EDT Telemedicine [facility] Adult Primary Care - [place] [address] [place] [address] Teodoro Alejandro PA-C [address] [place] [address] [place] [phone] Type 2 diabetes mellitus with other specified complication, unspecified whether intermediate designer insulin use ([facility]) (Primary Dx); Left foot pain; Anxiety and [...] for 90 days. 7.5 mL 2 11/26/2019 0 metFORMIN (GLUCOPHAGE) 500 mg tablet Take 2 Tabs by mouth daily for 90 days. 180 Tab 1 11/26/2019 0 documented in this encounter Progress Notes [...] Lantus 25 units in the morning and [id number] mg once a day. Her fasting sugars [...] in October 2019. She follows up with [facility] at the women[facility] center. She is scheduled for a tubal procedure on December 13. 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 She did go to [facility] and had x-rays and was told that [...] mellitus with other specified complication, unspecified whether fci insulin use ([facility]) Patient has type 2 diabetes that [...] mellitus with other specified complication, unspecified whether fci insulin use ([facility]) Ordered: 11/27/2019 documented as of this encounter Results * (ABNORMAL) C REACTIVE PROTEIN (11/28/2019 15:56 EDT) C-Reactive Protein 10.6(H) <10.0 mg/L 11/28/2019 17:12 EDT [facility] Blood VENOUS BLOOD / Unknown Venipuncture / Unknown 11/28/2019 15:56 EDT 11/28/2019 15:56 EDT us Teodoro Alejandro PA-C CHEMISTRY & BLOOD GA S ORDERABLES Final Result [facility] [address] [place] [address] * (ABNORMAL) COMPREHENSIVE METABOLIC PANEL (CMP) (11/28/2019 15:56 EDT) Sodium 134(L) 136 - 145 mEq/L 11/28/2019 17:12 EDT [facility] Potassium 4.2 3.5 - 5.0 mEq/L 11/28/2019 17:12 EDT [facility] Chloride 100 96 - 110 mEq/L 11/28/2019 17:12 EDT [facility] CO2 Total 28 22 - 32 mEq/L 11/28/2019 17:12 EDT [facility] Glucose 301(H) 70 - 100 mg/dL 11/28/2019 17:12 EDT [facility] BUN 14 10 - 26 mg/dL 11/28/2019 17:12 [facility] Creatinine 0.57 0.52 - 1.04 mg/dL 11/28/2019 17:12 [facility] eGFR 121 >60 mL/min/1.7 3m2 11/28/2019 17:12 [facility] Comment:eGFR calculated gil curtis CKD-EPI equation for non- Americans. Multiply eGFR by 1.16 for patients. Total Protein 7.0 6.3 - 8.2 g/dL 11/28/2019 17:12 [facility] Albumin 3.9 3.4 - 4.9 g/dL 11/28/2019 17:12 [facility] Alkaline Phosphatase 100 38 - 126 U/L 11/28/2019 17:12 [facility] AST 17 15 - 46 U/L 11/28/2019 17:12 [facility] ALT 14 <35 U/L 11/28/2019 17:12 [facility] Bilirubin, Total <0.5 <1.4 mg/dL 11/28/19 20 17:12 [facility] Calcium 9.8 8.5 - 10.5 mg/dL 11/28/2019 17:12 [facility] Calculated Calcium 9.9 8.5 - 10.5 mg/dL 11/28/2019 17:12 [facility] Blood VENOUS BLOOD / Unknown Venipuncture / Unknown 11/28/2019 15:56 EDT 11/28/2019 15:56 EDT us Teodoro Alejandro PA-C CHEMISTRY & BLOOD GA S ORDERABLES Final Result [facility] [address] [place] [address] * (ABNORMAL) COMPLETE BLOOD COUNT AND DIFFERENTIAL (11/28/2019 15:56 EDT) WBC 14.38(H) 4.00 - 12.40 K/cmm 11/28/2019 17:04 [facility] RBC 4.69 3.86 - 5.04 M/cmm 11/28/2019 17:04 [facility] Hemoglobin 14.3 11.6 - 15.2 gm/dL 11/28/2019 17:04 [facility] HCT 40.8 34.9 - 44.4 % 11/28/2019 17:04 [facility] MCV 87 81 - 98 fl 11/28/2019 17:04 [facility] MCH 30.5 26.7 - 33.3 pg 11/28/2019 17:04 [facility] MCHC 35.0 32.1 - 35.9 gm/dL 11/28/2019 17:04 [facility] RDW-CV 12.0 <14.7 % 11/28/2019 17:04 [facility] RDW-SD 38.4 <50.4 fl 11/28/2019 17:04 [facility] PLT 414(H) 141 - 377 K/cmm 11/28/2019 17:04 [facility] MPV 10.1 9.5 - 12.7 fl 11/28/2019 17:04 [facility] Type of Differential: Manual 11/28/2019 17:04 [facility] Blood VENOUS BLOOD / Unknown Venipuncture / Unknown 11/28/2019 15:56 EDT 11/28/2019 15:56 EDT Teodoro Alejandro PA-C PACKAGES & DNA PROBE ORDERABLES Final Result [facility] [address] [place] [address] * (ABNORMAL) HEMOGLOBIN A1C (11/28/2019 15:56 EDT) Hemoglobin A1c 10.3(H) <5.7 % 11/29/2019 9:15 [facility] Comment: Glycemic Status References: Normal: [...] Avg Glucose 249 mg/dL 0 9:15 EDT [facility] Comment: The eAG represents the A1c result expressed as average glucose in mg/dL. Blood VENOUS BLOOD / Unknown Venipuncture / Unknown 11/28/2019 15:56 EDT 11/28/2019 15:56 EDT Teodoro Alejandro PA-C CHEMISTRY & BLOOD GA S ORDERABLES Final Result Performing Organization Address [facility] Co de Phone Number [facility] [address] [place] [address] * THYROID CASCADE (11/28/2019 15:56 EDT) TSH 0.64 0.47 - 4.68 uIU/mL 11/28/2019 17:44 EDT [facility] Blood VENOUS BLOOD / Unknown Venipuncture / Unknown 11/28/2019 15:56 EDT 11/28/2019 15:56 EDT Narrative [facility] - 11/28/2019 17:44 EDT NOTE: TSH [place] is not recommended for patients in which pituitary or hypothalamic disorders are suspected. The results of this assay can be falsely lowered due to the consumption of Biotin. Teodoro Alejandro PA-C CHEMISTRY & BLOOD GA S ORDERABLES Final Result Performing Organization Address [facility] Co de Phone Number [facility] [address] [place] [address] * LIPID PROFILE (INCLUDES CHOLESTEROL, TRIGLYCERIDES, HDL, LDL) (11/28/2019 15:56 EDT) [facility] Signature Cholesterol 179 See Note mg/dL 11/28/2019 17:12 [facility] Comment: Acceptable: ?<200 mg/dL Borderline High: 200-239 mg/dL High: ?> or = 240 mg/dL HDL 38 See Note mg/dL 11/28/2019 17:12 [facility] Comment: Low: ? <40 mg/dL Normal: ??40-60 mg/dL High: ?>60 mg/dL LDL, Calculated 61 See Note mg/dL 11/28/2019 17:12 [facility] Comment: Optimal: ? <100 mg/dL Near Optimal: ?100-129 mg/dL Borderline High: 130-159 mg/dL High: ?160-189 mg/dL Very High: ? > or = 190 mg/dL Triglyceride 398 See Note mg/dL 11/28/2019 17:12 [facility] Comment: Normal: ? <150 mg/dL Borderline High: ??150 - 199 mg/dL High: ? 200 - 499 mg/dL Very High: ?> or = 500 mg/dL Chol/HDL Ratio 4.7 See Note 11/28/2019 17:12 [facility] Comment: No reference range has been established for CHOL/HDL ratio. Non HDL Cholesterol 141 See Note mg/dL 11/28/2019 17:12 [facility] Comment: Desirable: ?<130 mg/dL Borderline High: ??130-159 mg/dL High: ? 160-189 mg/dL Very High: ?> or = 190 mg/dL Blood VENOUS BLOOD / Unknown Venipuncture / Unknown 11/28/2019 15:56 EDT 11/28/2019 15:56 EDT Teodoro Alejandro PA-C CHEMISTRY & BLOOD GA S ORDERABLES Final Result [facility] [address] [place] [address] * (ABNORMAL) ALBUMIN, URINE (11/28/2019 15:56 EDT) Albumin, Urine 11.3 See Note mg/dL 2019 16:47 EDT [facility] Comment: NOTE: Reference range not established Creatinine, Urine 143.1 See Note mg/dL 11/28/2019 16:47 EDT [facility] Comment: NOTE: Reference range not established Lab Urine Albumin to Creatinine Ratio 79(H) <30 ug/mg Creatinine 11/28/2019 16:47 EDT [facility] Comment: Urine Albumin/Creatinine Ratio: Normal: <30 ug/mg Creatinine Moderately increased albuminuria: 30-300 ug/mg Creatinine [place] increased albuminuria: >300 ug/mg Creatinine Urine URINE SPECIMEN OBTAINED BY CLEAN CATCH PROCEDURE / Unknown Urine Collect / Unknown 11/28/2019 15:56 EDT 11/28/2019 15:56 EDT Teodoro Alejandro PA-C CHEMISTRY & BLOOD GA S ORDERABLES Final Result Performing Organization Address [facility] Co de Phone Number [facility] [address] [place] [address] documented in this encounter Visit Diagnoses Diagnosis Type 2 diabetes mellitus with other specified complication, unspecified whether intermediate designer insulin use ([facility])- Primary Left foot pain Pain in [...]
--- OUTSIDE RECORDS SUMMARY | 2024-05-31 00:46 | XMS_ITS | Encounter Summary ---
Author Organization Health system Address [address] [place] [address] Care Team Providers Care Day Care Teacher Name Role Phone None, Provider Primary [...] on filedocumented in this encounter Care Teams Day Care Teacher Relationship Specialty Start Date End Date None, Provider PCP - General 06/18/19 11/25/19 documented as of this encounter
--- OUTSIDE RECORDS SUMMARY | 2024-05-31 00:46 | XMS_ITS | Encounter Summary ---
Author Organization [facility] Address [address] [place] [address] Care Team Providers Care Shot Tube Machine Tender Name Role Phone None, Provider Primary Care Provider Unavailabl e Reason for Visit * Reason Onset Date Comments Other 10/16/2019 Follow up. Encounter Details Date Type Department Care Team (Late st Contact Info) Description 10/16/2019 Telephone [facility] OBGYN Services - [address] [address] Jordyn Wolfe, MARCELO Other (Follow up.) Social [...] Encounter - Jordyn Wolfe RN - 10/22/2019 1719 EDT Call to patient. This was a follow-up call after patient miscarriage. Patient did speak to renal social worker Elo Diaz who reached out [...] she needs to speak to nurse or renal social worker. Patient states currently feels well supported and expressed gratitude towards our staff for supporting her also. * Telephone Encounter - Jordyn Wolfe RN - 10/16/2019 1427 EDT Call to renal social workerkalia Diaz.Asked best number/time to call. documented in this encounter Plan of Treatment Not on file documented as of this encounter Visit Diagnoses Not on filedocumented in this encounter Care Teams Shot Tube Machine Tender Relationship Specialty Start Date End Date None, Provider PCP - General 06/18/19 11/25/19 documented as of this encounter
--- OUTSIDE RECORDS SUMMARY | 2024-05-31 00:46 | XMS_ITS | Encounter Summary ---
Author Organization [facility] Address [address] [place] [address] Care Team Providers Care Diesel Technician Name Role Phone None, Provider Primary Care Provider Unavailabl e Reason for Visit * Reason Onset Date Comments COVID-19 11/22/2019 Encounter Details Date Type Department Care Team (Late st Contact Info) Description 11/22/2019 Orders Only [facility] OBGYN Services - [address] [address] Susana Tomlinson, RN Sterilization (Primary Dx) Social [...] in this encounter Progress Notes * Susana Tomlinson [...] Primary documented in this encounter Care Teams Diesel Technician Relationship Specialty Start Date End Date None, Provider PCP - General 06/18/19 11/25/19 documented as of this encounter
--- OUTSIDE RECORDS SUMMARY | 2024-05-31 00:46 | XMS_ITS | Encounter Summary ---
Author Organization [facility] Address [address] [place] [address] Care Team Providers Care Cook Supervisor Name Role Phone Unavailable Primary Care Provider Unavailabl e Reason for Visit * Reason Comments Diabetes * Consult (Routine) - Specialty Report Received Specialty Diagnoses / Procedures Referred By Kit t Referred To Contact Endocrinology Diagnoses Type 2 diabetes mellitus with other specified complication, unspecified whether snf insulin use ([facility]) Tonja Alejandro PA-C [address] [place] [address] Phone: tel: fax: [facility] Endocrinology - [address] [address] Phone: tel: fax: Referral ID Status Reason Start Date Expiration Date Visits Requested Visits Authorized [id number] Specialty Report Received Specialty Services Required 11/27/2019 1 1 Encounter Details Date Type Department Care Team (Latest Contact Info) Description 11/30/2019 9:30 EDT Telemedicine [facility] Endocrinology - [facility] [address] [place] [address] Sara Zafar NP [address] [facility] [address] [place] [address] Anxiety and depression (Primary Dx); Type 2 diabetes mellitus with hyperosmolarity without coma, with long-term current use of insulin ([facility]) Social History Tobacco Use Types [...] 90 days. 27 mL 3 12/04/2019 2 documented in this encounter Progress Notes * Sara Zafar APRN - 11/30/2019 0930 EDT Subjective: [facility] F/U Note TELEMEDICINE VIDEO [...] trimester miscarriages, most recently terminated a at [facility] The most recent 10/28/2019. Recurrent loss is attributed to to poorly controlled type 2 diabetes in conjunction with tobacco dependence. She saw [employer] [employer] on 11/03/2018, and was advised to get diabetes in control, and to quit smoking both tobacco and pot. She is now scheduled for a tubal ligation December 14. 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 She did go to [facility] and had x-rays and was told [...] siblings, knows about 2, no DM. 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 Previous [...] coma, with long-term current use of insulin ([facility]) documented in this encounter Discontinued Medications Medication Sig Discontinue Reason Start Date End Da te insulin glargine (LANTUS SOLOSTAR) 100 unit/mL (3 mL) injection pen Inject 25 Units into the skin at bedtime for 90 days. 11/27/2019 12/04/2019 documented as of this encounter Historical Medications * This list may reflect changes made after this encounter. insulin aspart U-100 (NOVOLOG FLEXPEN) 100 unit/mL (3 mL) injectable penIndications:ty pe 2 diabetes mellitus,as needed with meals. Inject 4-6 Units into the skin 3 times daily with meals. 03/21/2020 added in this encounter
--- OUTSIDE RECORDS SUMMARY | 2024-05-31 00:46 | XMS_ITS | Encounter Summary ---
Author Organization [facility] Address [address] [place] [address] Care Team Providers Care Mica Plate Layer Name Role Phone Unavailable Primary Care Provider Unavailabl e Encounter Details Date Type Department Care Team (Latest Contact Info) Description 12/05/2019 10:30 EDT - 12/05/2019 23:59 EDT Hospital Encounter [facility] Pre-Surgical Testing [address] [place], [place] [phone] Discharge Disposition: Home or Self Care Social [...] Testing QID. 100 Each 5 10/01/2019 1 cephALEXin (KEFLEX) 500 mg capsule Take 1 Cap by mouth 4 times daily for 7 days. 28 Cap 12/05/2019 0 insulin aspart U-100 (NOVOLOG FLEXPEN) 100 [...] instruct them to call us back at [phone] to report symptoms (If patient is in [...] - Visitors must have mask for pickup. [employer] CONSULTANT will provide burr picker instructions when Pt is ready for [...]
--- OUTSIDE RECORDS SUMMARY | 2024-05-31 00:46 | XMS_ITS | Encounter Summary ---
Author Organization [facility] Address [address] [place] [address] Care Team Providers Care President Ergonomic Consulting Name Role Phone None, Provider Primary Care Provider Unavailabl e Encounter Details Date Type Department Care Team (Late st Contact Info) Description 11/20/2019 Prep for Procedure [facility] [address] [place], [place] [id number] Pamela Sifuentes MD [address] [place] [phone] Social History Tobacco Use Types Packs/Day [...] on filedocumented in this encounter Care Teams President Ergonomic Consulting Relationship Specialty Start Date End Date None, Provider PCP - General 06/18/19 11/25/19 documented as of this encounter
--- OUTSIDE RECORDS SUMMARY | 2024-05-31 00:46 | XMS_ITS | Encounter Summary ---
Author Organization [facility] Address [address] [place] [address] Care Team Providers Care Personnel Consultant Name Role Phone None, Provider Primary Care Provider Unavailabl e Reason for Visit * Reason Comments Dental Pain inside lower abscess near gum.bilateral Encounter Details Date Type Department Care Team (Latest Contact Info) Description 10/28/2019 14:26 EDT - 10/28/2019 15:11 EDT Hospital Encounter [facility] Urgent Care - [facility] [address] [place] [address] Monique Gramajo, GUSTAVO [address] [place] [phone] Gingivitis (Primary Dx) Discharge Disposition: Home or [...] documented in this encounter Discharge Instructions * Attachments The following attachments cannot be sent through Care Everywhere. * Periodontal Conditions (Korean) documented in this encounter Medications at Time of Discharge blood glucose meter One Touch Verio Flex meter. 1 Each 10/04/2019 2 blood glucose test strips One Touch Verio IQ or other brand compatible with meter and covered by patient's insurance. Testing QID. 100 Each 5 10/01/2019 1 clindamycin (CLEOCIN) 300 mg capsule Take 1 Cap by mouth every 6 hours for 5 days. 20 Cap 10/28/2019 0 folic acid (FOLVITE) 1 mg tablet Take 4 Tabs by mouth daily. 100 Tab 3 10/01/2019 0 insulin glargine (LANTUS SOLOSTAR) 100 unit/mL (3 mL) injection pen Inject 10 Units into the skin at bedtime. 0 lancets One Touch Delica or other brand compatible with lancing device and covered by patient's insurance. 100 Each 5 10/01/2019 1 lidocaine (LIDOCAINE) 2 % solution Mix with equal amount of benadryl and maalox; swish and spit the formula 3-4 times a day 100 mL 10/28/2019 0 metFORMIN (GLUCOPHAGE) 500 mg tablet Take 1,000 mg by mouth daily. 0 documented as of this encounter Ordered Prescriptions Prescription Sig Dispense Quantity Refills Last Filled Start Date End Date lidocaine (LIDOCAINE) 2 % solution Mix with equal amount of benadryl and maalox; swish and spit the formula 3-4 times a day 100 mL 10/28/2019 0 clindamycin (CLEOCIN) 300 mg capsule Take 1 Cap by mouth every 6 hours for 5 days. 20 Cap 10/28/2019 0 documented in this encounter Discharge Disposition Disposition Code Departure Means Destination Home or Self Snf documented in this encounter ED Notes * Monique Gramajo APRN - 10/28/2019 1500 EDT DOS: 10/28/2019 Chief [...] tried any treatment. [facility] but they can't see her until [...] PCR results found No results found for: [id number] HgA1c [ ] 1T pending [ ] [...] teen yrs. ??? Type 2 diabetes mellitus ([facility]) 09/03/2015 Dx approx age 25. Controlled with lifestyle behaviors, wt loss. Had taken lantus in past 80u, Followed by endocrine in [facility]. Stopped few yrs ago until this past month. ??? Anxiety and depression 05/12/2010 Onset teen yrs. Treated with citalopram in approx 2012 - had SI, treated at [place]. Marijuana prn to help with stress/anxiety sx. [...] state in antepartum period ??? Spontaneous miscarriage 09/04/201515, 08/19. [facility] Social History Tobacco Use ??? Smoking status: [...] of further medications. Upon departure from [facility], the patient's pain was 6 on a zero to ten scale. Any further pain treatment will be at the discretion of the provider following up with the patient based on their clinical assessment . Condition at departure from the [facility] : Stable MDM [...] induced documented in this encounter Care Teams Personnel Consultant Relationship Specialty Start Date End Date None, Provider PCP - General 06/18/19 11/25/19 documented as of this encounter
--- OUTSIDE RECORDS SUMMARY | 2024-05-31 00:46 | XMS_ITS | Encounter Summary ---
Author Organization [facility] Address [address] [place] [address] Care Team Providers Care Thinner Sprayer Name Role Phone Unavailable Primary Care Provider Unavailabl e Reason for Visit * Reason Onset Date Comments Update 12/06/2019 Encounter Details Date Type Department Care Team (Late st Contact Info) Description 12/06/2019 Telephone [facility] OBGYN Services - [address] [phone] Charu Flynn MD [address] [facility], [address] [place] [address] Update Social History Tobacco Use [...]
--- OUTSIDE RECORDS SUMMARY | 2024-05-31 00:46 | XMS_ITS | Encounter Summary ---
Author Organization [facility] Address [address] [place] [address] Care Team Providers Care Network Consultant Name Role Phone None, Provider Primary Care Provider Unavailabl e Reason for Visit * Reason Onset Date Comments Appointment Related 10/12/2019 Encounter Details Date Type Department Care Team (Late st Contact Info) Description 10/12/2019 Telephone [facility] OBGYN Services - [facility] [address] [place] [address] Karoline Wolfe, MARCELO Appointment Related Social History [...] Call to patient. I spoke to patient. safety manager Mary Hurtado and Dr. Martínez approve [...] Primary documented in this encounter Care Teams Network Consultant Relationship Specialty Start Date End Date None, Provider PCP - General 06/18/19 11/25/19 documented as of this encounter
--- OUTSIDE RECORDS SUMMARY | 2024-05-31 00:46 | XMS_ITS | Encounter Summary ---
Author Organization [facility] Address [address] [place] [address] Care Team Providers Care Mine Supervisor Name Role Phone Unavailable Primary Care Provider Unavailabl e Reason for Visit * Reason Comments Social Work Encounter Details Date Type Department Care Team (Late st Contact Info) Description 11/26/2019 Community Health Team [facility] OBGYN Services - [address] [address] Eryn Diaz Social History Tobacco Use Types [...] participate in a loss support group via [employer] (has for the past couple years) - [...] zoom meeting link as appt gets closer. [facility] Total Time: 1 hour total 45 min via zoom with pt 15 min charting Referral: n/a Follow up: Date: Thursday, December 19, 2019 Time: 11 AM With: Eryn Diaz Physical Therapy Assistant Instructor Location: zoom Status: Active documented in this encounter Plan of Treatment Not on file documented as of this encounter Visit Diagnoses Not on filedocumented in this encounter
--- OUTSIDE RECORDS SUMMARY | 2024-05-31 00:46 | XMS_ITS | Encounter Summary ---
Author Organization [facility] Address [address] [place] [address] Care Team Providers Care Hospice Team Lead Name Role Phone Unavailable Primary Care [...]
--- OUTSIDE RECORDS SUMMARY | 2024-05-31 00:46 | XMS_ITS | Encounter Summary ---
Author Organization [facility] Address [address] [place] [address] Care Team Providers Care Media Account Executive Name Role Phone Unavailable Primary Care Provider Unavailabl e Reason for Visit * Reason Onset Date Comments Results 12/05/2019 Encounter Details Date Type Department Care Team (Late st Contact Info) Description 12/05/2019 Telephone [facility] Adult Primary Care - [address] [address] Tonja Alejandro PA-C [address] [place] [address] [place] [phone] Results Social History Tobacco Use Types [...] Refills Last Filled Start Date End Date cephALEXin (KEFLEX) 500 mg capsule Take 1 Cap by mouth 4 times daily for 7 days. 28 Cap 12/05/2019 12/12/2019 documented in this encounter Miscellaneous Notes * Telephone Encounter - Tonja Alejandro PA-C - 12/05/2019 7778 EDT I spoke with patient regarding MRI [...] the mild cellulitis. She will contact her ROTARY DRILL OPERATOR HELPER and inform this of them as she [...]
--- OUTSIDE RECORDS SUMMARY | 2024-05-31 00:46 | XMS_ITS | Encounter Summary ---
Author Organization [facility] Address [address] [place] [address] Care Team Providers Care Seed Sales Manager Name Role Phone None, Provider Primary Care Provider Unavailabl e Reason for Visit * Reason Onset Date Comments Follow-up 10/15/2019 Encounter Details Date Type Department Care Team (Late st Contact Info) Description 10/15/2019 Telephone [facility] OBGYN Services - [facility] [address] [place] [address] Susana Tomlinson, RN Follow-up Social History Tobacco [...] Encounter - Susana Tomlinson RN - 10/15/2019 0942 EDT Spoke with Cristy: her cramping is [...] thru this again. She will call the [employer] at [phone] to set up a Control talk to [...] on filedocumented in this encounter Care Teams Seed Sales Manager Relationship Specialty Start Date End Date None, Provider PCP - General 06/18/19 11/25/19 documented as of this encounter
--- OUTSIDE RECORDS SUMMARY | 2024-05-31 00:46 | XMS_ITS | Encounter Summary ---
Author Organization [facility] Address [address] [place] [address] Care Team Providers Care Mechanical Adjuster Name Role Phone Unavailable Primary Care Provider Unavailabl e Reason for Visit * Reason Comments Foot Problem * Consult (Routine/Next Available) - Order Cancelled Specialty Diagnoses / Procedures Referred By Kit goode Referred To Contact Orthopedic Surgery Diagnoses Left foot pain Sore on toe ([facility]) Tonja Alejandro PA-C Phone: tel: fax: [facility] [place] [address] Phone: tel: fax: Referral ID Status Reason Start Date Expiration Date Visits Requested Visits Authorized [id number] Order Cancelled Specialty Services Required 11/28/2019 1 1 Encounter Details Date Type Department Care Team (Late st Contact Info) Description 01/01/2020 8:[address] [facility] [place] [address] Elza Navarro DPM [address] [place] [address] Chronic pain of left ankle (Primary Dx); Ulcerated, foot, left, with fat layer exposed ([facility]); Type 2 diabetes mellitus with diabetic polyneuropathy, with long-term current use of insulin ([facility]) Social History Tobacco Use [...] Progress Notes * Elza Navarro DPM - 01/01/2020 0800 EDT Images from [...] this is her first foot ulcer. Ms. uLo has 4 kids at home, and 2 [...] arthritis 09/04/2015 ??? Type 2 diabetes mellitus ([facility]) 09/03/2015 ??? Anxiety and depression 05/12/2010 ??? Migraine with aura and without status migrainosus, not intractable Past Medical History: Diagnosis Date ??? Anxiety ??? Arthritis 12/05/19- Spine- told years ago ??? Diabetes ([facility]) A1c 10.3 on 11/28/2019 ??? [...] around the ulcer. Protective sensation absent via Mereta Bella monofilament 0 out of 10. Left plantar great toe ulcer after debridement: ASSESSMENT: 1. Chronic pain of left ankle XR ANKLE LEFT 3 OR MORE VIEWS 2. Ulcerated, foot, left, with fat layer exposed (HCC-CMS) XR FOOT LEFT 3 OR MORE VIEWS 3. Type 2 diabetes mellitus with diabetic polyneuropathy, with long-term current use of insulin ([facility]) XR FOOT LEFT 3 OR MORE VIEWS [...] Ulcerated, foot, left, with fat layer exposed ([facility]) Type 2 diabetes mellitus with diabetic polyneuropathy, with long-term current use of insulin ([facility]) documented in this encounter Results [...] foot and around the ankle. us Elza Forman Ramon DPM IMG DIAGNOSTIC IMAGING ORDERABL ES Final [...] Ulcerated, foot, left, with fat layer exposed ([facility]) Type 2 diabetes mellitus with diabetic polyneuropathy, with long-term current use of insulin ([facility]) documented in this encounter Orders Equipment Count Last Ordered Date First Orde red Date GENERIC ORTHO VENDOR DME 1 01/01/2020 documented in this encounter
--- OUTSIDE RECORDS SUMMARY | 2024-05-31 00:46 | XMS_ITS | Encounter Summary ---
Author Organization [facility] Address [address] [place] [address] Care Team Providers Care Home Decorator Name Role Phone Unavailable Primary Care [...]
--- OUTSIDE RECORDS SUMMARY | 2024-05-31 00:46 | XMS_ITS | Encounter Summary ---
Author Organization [facility] Address [address] [place] [address] Care Team Providers Care Stain Wiper Name Role Phone Unavailable Primary Care Provider Unavailabl e Reason for Visit * Reason Comments Social Work Encounter Details Date Type Department Care Team (Late st Contact Info) Description 12/19/2019 Community Health Team [facility] OBGYN Services - [address] [address] Eryn Diaz Social History Tobacco Use Types [...]
--- OUTSIDE RECORDS SUMMARY | 2024-05-31 00:46 | XMS_ITS | Encounter Summary ---
Author Organization [facility] Address [address] [place] [address] Care Team Providers Care Sql Server Dba Developer Name Role Phone Unavailable Primary Care Provider Unavailabl e Reason for Visit * Reason Comments Telemedicine Video Visit Foot Pain Ankle Pain Encounter Details Date Type Department Care Team (Latest Contact Info) Description 12/28/2019 10:45 EDT Telemedicine [facility] Adult Primary Care - [address] [address] Teodoro Alejandro PA-C [address] [facility] [address] [place] [address] Encounter for sterilization (Primary Dx); Type 2 diabetes mellitus with hyperosmolarity without coma, with long-term current use of insulin ([facility]); Left foot pain Social History Tobacco Use [...] Max: 1 Tab 7 Tab 12/28/2019 0 documented in this encounter Progress Notes [...] and ankle. OBGYN: Patient followed up with [facility] on 11/02/2019 and a discussion was placed [...] 27 mL 3 ??? lancets One [facility] or other brand compatible with lancing device [...] Encounter for sterilization Patient will follow-up with [facility] regarding sterilization. Also discussed with patient about possiblevasectomy for her partner. Type 2 diabetes mellitus with hyperosmolarity without coma, with long-term current use of insulin ([facility]) Continue Lantus 30 mg daily. Continue [...] coma, with long-term current use of insulin ([facility]) Left foot pain Pain in limb documented in this encounter
--- OUTSIDE RECORDS SUMMARY | 2024-05-31 00:46 | XMS_ITS | Encounter Summary ---
Author Organization [facility] Address [address] [place] [address] Care Team Providers Care Supervisor Reactor Fueling Name Role Phone Unavailable Primary Care Provider Unavailabl e Reason for Referral * Radiology Services (Routine) - Closed Specialty Diagnoses / Procedures Referred By Contac t Referred To Contact Radiology Diagnoses Left foot pain Sore on toe ([facility]) Procedures MR FOOT W WO CONTRAST LEFT Tonja Alejandro PA-C Phone: tel: fax: Referral ID Status Reason Start Date Expiration Date Visits Re quested Visits Authorized [id number] Closed 11/28/2019 1 1 Reason for Visit * Reason Comments Foot Pain left Encounter Details Date Type Department Care Team (Late st Contact Info) Description 11/28/2019 14:30 EDT Office Visit [facility] Adult Primary Care - [place] [address] [place] [address] Tonja Alejandro PA-C [address] [place] [address] [place] [phone] Left foot pain (Primary Dx); Type 2 diabetes mellitus with other specified complication, unspecified whether fdc insulin use ([facility]); Sore on toe Social History Tobacco Use [...] Refills Last Filled Start Date End Date traMADoL (ULTRAM) 50 mg tablet Take 1 Tab by mouth every 6 hours as needed for up to 7 days for Pain. Daily Max: 200 mg 28 Tab 11/28/2019 12/05/2019 documented in this encounter Progress Notes * Tonja Alejandro PA-C - 11/28/2019 1430 EDT Images from the original note were not included. [facility] Primary Care Acute Visit Service Date: 11/28/2019 [...] she did go to urgent care at [facility] and had x-rays done and was [...] specified complication, unspecified whether fdc insulin use ([facility]) Sore on toe/left foot pain This is [...] the forefoot. Tonja Alejandro PA-C IMG MRI ORDERABLES F inal Result documented in this encounter Visit Diagnoses Diagnosis Left foot pain- Primary Pain in limb Type 2 diabetes mellitus with other specified complication, unspecified whether buttermaker helper insulin use ([facility]) Sore on toe ([facility]) Left foot pain Pain in limb Sore on toe ([facility]) documented in this encounter
--- OUTSIDE RECORDS SUMMARY | 2024-05-31 00:46 | XMS_ITS | Encounter Summary ---
Author Organization [facility] Address [address] [place] [address] Care Team Providers Care Manager Fleet Name Role Phone None, Provider Primary Care Provider Unavailabl e Reason for Visit * Reason Onset Date Comments Pharmacy 10/29/2019 Encounter Details Date Type Department Care Team (Late st Contact Info) Description 10/29/2019 Telephone [facility] Urgent Care - [facility] [address] [place] [address] Monique Gramajo, GUSTAVO [address] [place] [address] Pharmacy Social History Tobacco Use [...] Keane - 10/29/2019 0947 EDT Patient seen 524.20 Prescription [facility] not covered by Insurance. Pharmacy unaware of an alternative. Insurance wouldn't cover because of a compound. documented in this encounter Plan of Treatment Not on file documented as of this encounter Visit Diagnoses Not on filedocumented in this encounter Care Teams Manager Fleet Relationship Specialty Start Date End Date None, Provider PCP - General 06/18/19 11/25/19 documented as of this encounter
--- OUTSIDE RECORDS SUMMARY | 2024-05-31 00:47 | XMS_ITS | Encounter Summary ---
Author Organization [facility] Address [address] [place] [address] Care Team Providers Care Academic Affairs Vice President Name Role Phone None, Provider Primary Care Provider Unavailabl e Encounter Details Date Type Department Care Team (Late st Contact Info) Description 09/05/2019 Orders Only [facility] OBGYN Services - [address] [address] Jonas Ojeda MD [address] [place] [address] [address] Less than 8 weeks gestation [...] incidental documented in this encounter Care Teams Academic Affairs Vice President Relationship Specialty Start Date End Date None, Provider PCP - General 06/18/19 11/25/19 documented as of this encounter
--- OUTSIDE RECORDS SUMMARY | 2024-05-31 00:47 | XMS_ITS | Encounter Summary ---
Author Organization [facility] Address [address] [place] [address] Care Team Providers Care Buggy Ladle Tender Name Role Phone Benita Shafer WOOD ROUTER Primary Care Provider [phone] Reason for Visit * Reason Onset Date Comments Results 11/21/2018 Encounter Details Date Type Department Care Team (Late st Contact Info) Description 11/21/2018 Telephone [facility] OBGYN Services - [address] [address] Jordyn Wolfe, MARCELO Results Social History Tobacco [...] Briscoe RN - 12/04/2018 1114 EDT Called [facility] lab to see if there were any recent betas, they state pt had been seen in there ED last night for unrelated problem. Asked them if they could run a Beta HCG off of what they collected lastnight 12/03. Called [facility] lab to see if they were able to run the HCG and asked them to fax results to [phone]. They state they will call and fax results. * Telephone Encounter - Lisseth Briscoe RN - 12/01/2018 1155 EDT Call to [facility] lab who states pt has not been [...] you of your upcoming appt 12/08 @ 9189 for a consult. If you are not able to get yourlab work done, or if you cannot keep that 12/08 appt please call [phone] to let us know. Attempted to reach pt 2 more times with no answer, no further msg left. * Telephone Encounter - Jordyn Wolfe RN - 11/30/2018 1031 EDT Call to [facility] lab. Patient has not gone [...] RN - 11/29/2018 0917 EDT Call to [facility] lab. Patient has not gone in for blood work yet. Will call patient. * Telephone Encounter - Jordyn Wolfe RN - 11/28/2018 1517 EDT Call to patient. Left message that the plan is for her to go to the lab for blood work( beta-hCG) retesting which she would be due today. Order is good at [facility] in [facility]. * Telephone Encounter - Jordyn Wolfe RN - 11/28/2018 1121 EDT Call to [facility] lab. Patient has not gone [...] off that day. Patient will go to [facility]. Patient with no questions at this time. documented in this encounter Plan of Treatment Not on file documented as of this encounter Visit Diagnoses Not on filedocumented in this encounter Care Teams Buggy Ladle Tender Relationship Specialty Start Date End Date Benita Shafer NP PCP - General 08/22/18 06/17/19 documented as of this encounter
--- OUTSIDE RECORDS SUMMARY | 2024-05-31 00:47 | XMS_ITS | Encounter Summary ---
Author Organization [facility] Address [address] [place] [address] Care Team Providers Care Lithographic Stripper Name Role Phone Benita Shafer LABORER LABORATORY Primary Care Provider [phone] Encounter Details Date Type Department Care Team [...] on filedocumented in this encounter Care Teams Lithographic Stripper Relationship Specialty Start Date End Date Benita Shafer NP PCP - General 08/22/18 06/17/19 documented as of this encounter
--- OUTSIDE RECORDS SUMMARY | 2024-05-31 00:47 | XMS_ITS | Encounter Summary ---
Author Organization [facility] Address [address] [place] [address] Care Team Providers Care Precipitator Supervisor Name Role Phone Benita Shafer GUSTAVO Primary Care Provider [phone] Encounter Details Date Type Department Care Team (Late st Contact Info) Description 11/21/2018 Orders Only [facility] OBGYN Services - [address] [id number] Charu Flynn MD [address] [facility], [address] [place] [address] Social History Tobacco Use Types [...] interpretation. Blood specimen (specimen) 11/21/2018 11:23 EDT us Charu Flynn MD CHEMISTRY & BLOOD GAS OR DERABLES Final Result [facility] documented in this encounter Visit Diagnoses Not on filedocumented in this encounter Care Teams Precipitator Supervisor Relationship Specialty Start Date End Date Benita Shafer NP PCP - General 08/22/18 06/17/19 documented as of this encounter
--- OUTSIDE RECORDS SUMMARY | 2024-05-31 00:47 | XMS_ITS | Encounter Summary ---
Author Organization [facility] Address [address] [place] [address] Care Team Providers Care Vp Software Engineering Name Role Phone None, Provider Primary Care [...] filedocumented in this encounter Care Teams Vp Software Engineering Relationship Specialty Start Date End Date None, Provider PCP - General 06/18/19 11/25/19 documented as of this encounter
--- OUTSIDE RECORDS SUMMARY | 2024-05-31 00:47 | XMS_ITS | Encounter Summary ---
Author Organization [facility] Address [address] [place] [address] Care Team Providers Care Field Health Officer Name Role Phone None, Provider Primary Care Provider Unavailabl e Reason for Referral * QUARRYING MANAGER (Routine) - Specialty Report Received Specialty Diagnoses / Procedures Referred By Contac t Referred To Contact Diagnoses of unknown anatomic location Procedures OB FIRST TRIMESTER (LESS THAN 14 WEEKS) TRANSVAGINAL Charu Flynn MD Phone: tel: fax: Referral ID Status Reason Start Date Expiration Date V isits Requested Visits Authorized [id number] Specialty Report Received 09/03/2019 1 1 Reason for Visit * Reason Onset Date Comments Results 09/03/2019 Encounter Details Date Type Department Care Team (Late st Contact Info) Description 09/03/2019 Telephone [facility] OBGYN Services - [address] [id number] Susana Tomlinson, RN Results Social History Tobacco [...] Tomlinson RN - 09/03/2019 1218 EDT Cristy [facility]: asking if blood work results are back. [...] using Lysol on everything & using hand elementary school social worker. Advsied should put on a mask when [...] Sufficient. Impression 1st Trimester OB scan ,transvaginal +[id number] Single intrauterine gestational sac and yolk sac. [...] Sufficient. Impression 1st Trimester OB scan ,transvaginal +[id number] Single intrauterine gestational sac and yolk sac. A pole cannot beclearly identified on today's examination. Follow-up follow up US in 2 weeks. Comment ========= Z34.8 encounter for supervision of other normal . Resultsdiscussed w/patient. DATE OF SERVICE: 09/05/2019 us Charu Flynn MD [facility] US OB ORDERABLES Fin al Result documented in this encounter Visit Diagnoses Diagnosis of unknown anatomic location- Primary state, incidental of unknown anatomic location state, incidental documented in this encounter Care Teams Field Health Officer Relationship Specialty Start Date End Date None, Provider PCP - General 06/18/19 11/25/19 documented as of this encounter
--- OUTSIDE RECORDS SUMMARY | 2024-05-31 00:47 | XMS_ITS | Encounter Summary ---
Author Organization [facility] Address [address] [place] [address] Care Team Providers Care Digital Media Sales Consultant Name Role Phone None, Provider Primary Care Provider Unavailabl e Reason for Visit * Reason Onset Date Comments Vaginal Bleeding 10/02/2019 Encounter Details Date Type Department Care Team (Late st Contact Info) Description 10/02/2019 Telephone [facility] Obstetrics & Midwifery - [facility] [address] [place] [address] Jenny Heart, RN Vaginal Bleeding Social History [...] filedocumented in this encounter Care Teams Digital Media Sales Consultant Relationship Specialty Start Date End Date None, Provider PCP - General 06/18/19 11/25/19 documented as of this encounter
--- OUTSIDE RECORDS SUMMARY | 2024-05-31 00:47 | XMS_ITS | Encounter Summary ---
Author Organization [facility] Address [address] [place] [address] Care Team Providers Care Data Technical Lead Name Role Phone None, Provider Primary Care Provider Unavailabl e Reason for Referral * Consult (3 - 10 Business Days) - Closed Specialty Diagnoses / Procedures Referred By Contac t Referred To Contact Diagnoses in first trimester Andrés Frazier MD Phone: tel: fax: [facility] Obstetrics & Midwifery - [address] [address] Phone: tel: fax: Referral ID Status Reason Start Date Expiration Date V isits Requested Visits Authorized [id number] Closed Specialty Services Required 10/11/2019 1 1 Question Answer Reason for Request: Failed Reason for Visit * Reason Comments Vaginal Bleeding see tcall. Ambulator y into triage, 9.5wks , last night started with bright red bleeding I've changed the panty liner a few times since last night. 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 Intermittent cramping. Hx 6 miscarriages. Encounter Details Date Type Department Care Team (Late Contact Info) Description 10/11/2019 20:54 EDT - 10/12/2019 0:13 EDT Emergency [facility] Emergency Department - [address] [id number] Kylah Whitaker PA-C [address] [facility], [address] [address] Alessandro Delgadillo MD [address] [facility], [address] [address] in first trimester (Primary Dx) [...] encounter Discharge Instructions * Discharge Instructions* Andrés Frazier MD - 10/11/2019 23:55 EDT Thank you for coming to the ED at [facility] for your medical care. Whenever [...] a failed . 2) Please follow-up with [facility]. They should call you within 48 hours [...] Testing QID. 100 Each 5 10/01/2019 1 folic acid (FOLVITE) 1 mg tablet Take 4 Tabs by mouth daily. 100 Tab 3 10/01/2019 0 insulin glargine (LANTUS SOLOSTAR) 100 unit/mL (3 mL) injection pen Inject 10 Units into the skin at bedtime. 0 lancets One Touch Delica or other brand compatible with lancing device and covered by patient's insurance. 100 Each 5 10/01/2019 1 metFORMIN (GLUCOPHAGE) 500 mg tablet Take 1,000 mg by mouth daily. 0 documented as of this encounter Discharge Disposition Disposition Code Departure Means Destination Home or Self Correction documented in this encounter Consult Notes * Elise Larson MD - 10/11/2019 2306 EDT Department of Gynecology History & Physical CC: Kel is a 34 y.o. at 9w3d by [...] while on meds);no current mood issues. 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 PMedHx: Past Medical History: Diagnosis Date ??? Depression ??? Diabetes mellitus ([facility]) ??? Migraine, unspecified, without mention of intractable [...] file Gets together: Not on file Attends yazidism service: Not on file Active member of [...] Diabetes Paternal Grandfather Objective: Vitals: 10/11/19205110/11/19 2100 10/11/191 BP: 126/77 125/59 102/63 Pulse: (!) 120 Resp: 18 Temp: 36.5 ??C (97.7 ??F) SpO2: 100% 100% 100% Weight: 88.5 kg (195 lb) Height: 162.6 cm (64) Body mass index is 33.47 kg/m??. Gen: NAD Psych: AAOx3 CV: Tachycardic Lungs: CTAB Abd: soft, NT, ND +BS Ext: NT, WWP, no edema PE: Deferred. Labs: CBC: Recent Labs 10/11/19 2109 WBC 17.66* RBC 4.70 HGB 14.4 HCT [...] Last menstrual period: Per discussion with the forge heater, patient is unsure. Per the most recent [...] ?? These findings were discussed with ANDRÉS FRAZIER by Dr. Magnus Doll at 10/11/2019 11:17 PM. ?? Reference: Ismael Ramsey et al. Diagnostic criteria for nonviable early in the first trimester. [place] Journal of Medicine 369.15 (2013): 6160-5827. ?? Assessment: Pt is a 34 y.o. [...] pursuing a clinic procedure or D&C in [facility] OR. We discussed that if she wants a D&C in the main OR, she will have to be conscious of her NPO status tomorrow for an add on procedure. Alternatively, we can schedule her procedure for Tue. She confirms understanding. Will plan to let [facility] team and clinic staff know about our [...] with Dr. Lund. Elise Larson MD PGY-3, [facility] Pager [phone] 10/12/2019 1:22 Cosigned by Mayra Lund MD at 10/12/2019 7:57 EDT Associated attestation - Mayra Lund MD - 10/12/2019 0007 EDT Attestation: I saw and examined the [...] Lund MD PhD MFM Fellow, PGY5 Pager #[phone] Mayra Lund MD 10/12/2019 7:55 documented in this encounter ED Notes * Ann Giang RN - 10/12/2019 0012 EDT Ordered for discharge. Aftercare instructions, follow up, s/s to return reviewed with pt. IV removed, VSS, ambulatory upon discharge. * Ann Giang RN - 10/11/20192231 EDT Ultrasound at bedside. * Alessandro Delgadillo MD - 10/11/2019 339 EDT This patient received an evaluation and medical screening exam for emergent medical conditions at the [facility] on 10/11/2019. This note was created and authored by ANDRÉS FRAZIER MD working under the supervision of Alessandro Delgadillo MD. HPI Cristy Luo is a 34 y.o. [...] or abdominal pain. Patient called the on-call [facility] and they instructed her to come here [...] to visualize the itself. Plan to follow [facility] recommendations with CBC, type and screen, beta quant, transvaginalultrasound. Will consult [facility] with the results and asked further direction. An EKG was obtained and independenly interpreted: NA Laboratory results independently reviewed, significant for: Quant beta 2954, leukocytosis of 17.66, antibody screen positive Imaging obtained was reviewed and independently interpreted: Transvaginal ultrasound demonstrated a failed intrauterine [facility] was consulted when I was informed of [...] female a failed based on ultrasound, history. [facility] was consulted who thought that she could be discharged home for definitive management in the clinic or ORtomorrow with D&C or medical expulsion therapy. Patient is very comfortable with this plan, herlabs are reassuring. She was discharged in stable condition with close OB follow-up; the RhoGam is l ikely still active from her last one as antibodies are noted ED Course: (7213) I evaluated the patient. Audio Visual Coordinator was at bedside discussing the results of [...] Petersen - 10/11/20192045 EDT TCALL: Cristy Luo 85 OB in L&D refers pt to e.d [...] failure. These findings were discussed with ANDRÉS FRAZIER MD by Dr. Magnus Doll at 10/11/2019 11:17 PM. Reference: Ismael Ramsey et al. Diagnostic criteria for nonviable early in the first trimester. [place] Journal of Medicine 369.15 (2013): 8876-8648. I have personally reviewed the images and [...] Last menstrual period: Per discussion with the forge heater, patient is unsure. Per the most recent [...] Last menstrual period: Per discussion with the forge heater, patient isunsure. Per the most recent OB [...] failure. These findings were discussed with ANDRÉS FRAZIER MD by Dr. Perla at 10/11/2019 11:17 PM. Reference: Ismael Ramsey, et al. Diagnostic criteria for nonviablepregnancy early in the first trimester. [place] Journal of Elwizvrp378.15 (2013): 6350-1692. I have personally reviewed the images and the above interpretation andagree with the findings. Andrés Frazier MD IMG US OB ORDERABLES Penny l Result * ANTIBODY IDENTIFICATION (10/11/2019 21:09 EDT) Antibody Identification Anti-D; patient recd RhIg 10/11/2019 23:41 EDT [facility] Blood VENOUS BLOOD / Unknown Venipuncture / Unknown 10/11/2019 21:09 EDT 10/11/2019 21:16 EDT Elise Charles MD BLOOD BANK TESTS Final Res ult [facility] [address] [place] [address] * HN LAB DIFF PATH REVIEW - HEME (10/11/2019 21:09 EDT) Pathologist Review Comment 10/12/19 13:41 ?? Elise Hightower MD 10/12/2019 13:41 EDT [facility] Blood VENOUS BLOOD / Unknown Venipuncture / Unknown 10/11/2019 21:09 EDT 10/11/2019 21:13 EDT us Andrés Frazier MD HEMATOLOGY & PF4 ORDERABL ES Final Result [facility] [address] [place] [address] * TYPE AND SCREEN (10/11/2019 21:09 EDT) ABO B 10/11/2019 22:43 EDT [facility] Rh Factor Negative 10/11/2019 22:43 EDT [facility] Antibody Screen Positive 10/11/2019 22:43 EDT [facility] Specimen Expires: 10/14/2019 @ 23:59 10/11/2019 22:43 EDT [facility] Blood VENOUS BLOOD / Unknown Venipuncture / Unknown 10/11/2019 21:09 EDT 10/11/2019 21:16 EDT us Elise Charles MD BLOOD BANK TESTS Edited Re sult - Final Performing Organization Address City/[facility]/ZIP Co de Phone Number [facility] [address] [place] [address] * (ABNORMAL) DIFFERENTIAL, AUTOMATED MANUAL (10/11/2019 21:09 EDT) % Neutrophils 52.6 % 10/11/2019 23:25 EDT [facility] % Lymphocytes 25.0 % 10/11/2019 23:25 EDT [facility] % Atypical Lymphocytes 6.9 % 10/11/2019 23:25 EDT [facility] % Monocytes 8.6 % 10/11/2019 23:25 EDT [facility] % Eosinophils 5.2 % 10/11/2019 23:25 EDT [facility] % Basophils 1.7 % 10/11/2019 23:25 [facility] Absolute Neutrophils 9.29(H) 2.20 - 8.85 K/cmm 10/11/2019 23:25 EDT [facility] Absolute Lymphocytes 4.42(H) 1.09 - 3.30 K/cmm 10/11/2019 23:25 [facility] Absolute Atypical Lymphocytes 1.22 K/cmm 10/11/2019 23:25 T [facility] Absolute Monocytes 1.52(H) 0.10 - 0.80 K/cmm 10/11/2019 23:25 [facility] Absolute Eosinophils 0.92(H) 0.03 - 0.61 K/cmm 10/11/2019 23:25 T [facility] ABS Basophils 0.30(H) 0.01 - 0.11 K/cmm 10/11/2019 23:25 T [facility] Blood VENOUS BLOOD / Unknown Venipuncture / Unknown 10/11/2019 21:09 EDT 10/11/2019 21:13 EDT Andrés Frazier MD HEMATOLOGY & PF4 ORDERABL ES Final Result [facility] [address] [place] [address] * (ABNORMAL) QUANT BETA HCG, (10/11/2019 21:09 EDT) Beta HCG Quant, 2,954(H) <5 mIU/ml 10/11/2019 22:54 EDT [facility] Comment: NOTE: : Negative: Less than 5mIU/mL Indeterminant: Between 5 and 25 mIU/mL, recommend repeat testing in 48 hours Positive: Greater than 25 mIU/mL The results of this assay can be falsely lowered due to the consumption of Biotin. Blood VENOUS BLOOD / Unknown Venipuncture / Unknown 10/11/2019 21:09 EDT 10/11/2019 21:13 EDT us Andrés Frazier MD CHEMISTRY & BLOOD GAS ORD ERABLES Final Result [facility] [address] [place] [address] * (ABNORMAL) COMPLETE BLOOD COUNT AND DIFFERENTIAL (10/11/2019 21:09 EDT) WBC 17.66(H) 4.00 - 12.40 K/cmm 10/11/2019 22:16 [facility] RBC 4.70 3.86 - 5.04 M/cmm 10/11/2019 22:16 [facility] Hemoglobin 14.4 11.6 - 15.2 gm/dL 10/11/2019 22:16 [facility] HCT 41.9 34.9 - 44.4 % 10/11/2019 22:16 [facility] MCV 89 81 - 98 fl 10/11/2019 22:16 [facility] MCH 30.6 26.7 - 33.3 pg 10/11/2019 22:16 [facility] MCHC 34.4 32.1 - 35.9 gm/dL 10/11/2019 22:16 [facility] RDW-CV 12.1 <14.7 % 10/11/2019 22:16 [facility] RDW-SD 39.5 <50.4 fl 10/11/2019 22:16 [facility] PLT 443(H) 141 - 377 K/cmm 10/11/2019 22:16 [facility] MPV 9.5 9.5 - 12.7 fl 10/11/2019 22:16 [facility] Type of Differential: Manual 10/11/2019 22:16 [facility] Blood VENOUS BLOOD / Unknown Venipuncture / Unknown 10/11/2019 21:09 EDT 10/11/2019 21:13 EDT us Andrés Frazier MD PACKAGES & DNA PROBE ORDE CHANTEL Final Result [facility] [address] [place] [address] * BLOOD BANK HOLD (10/11/2019 21:09 EDT) Hold BB Spec will exp at 23:59, 3 days from collect date 10/11/2019 21:31 EDT [facility] Blood VENOUS BLOOD / Unknown Venipuncture / Unknown 10/11/2019 21:09 EDT 10/11/2019 21:16 EDT us Elise Charles MD BLOOD BANK TESTS Final Res ult [facility] [address] [place] [address] * HOLD SST (10/11/2019 21:09 EDT) Hold Hold 10/11/2019 22:16 EDT [facility] Blood VENOUS BLOOD / Unknown Venipuncture / Unknown 10/11/2019 21:09 EDT 10/11/2019 21:13 EDT us Elise Charles MD LAB INFO SERVICE AND SUPPO RT & PHONE RESULT Final Result [facility] [address] [place] [address] * HOLD LAVENDER TOP (10/11/2019 21:09 EDT) Hold Hold 10/11/2019 22:16 EDT [facility] Blood VENOUS BLOOD / Unknown Venipuncture / Unknown 10/11/2019 21:09 EDT 10/11/2019 21:13 EDT us Elise Charles MD LAB INFO SERVICE AND SUPPO RT & PHONE RESULT Final Result [facility] [address] [place] [address] * HOLD GREEN TOP (10/11/2019 21:09 EDT) Hold Hold 10/11/2019 22:16 EDT [facility] Blood VENOUS BLOOD / Unknown Venipuncture / Unknown 10/11/2019 21:09 EDT 10/11/2019 21:13 EDT us Elise Charles MD LAB INFO SERVICE AND SUPPO RT & PHONE RESULT Final Result [facility] [address] [place] [address] * HOLD BLUE TOP (10/11/2019 21:09 EDT) Hold Hold 10/11/2019 22:16 EDT [facility] Blood VENOUS BLOOD / Unknown Venipuncture / Unknown 10/11/2019 21:09 EDT 10/11/2019 21:13 EDT us Elise Charles MD LAB INFO SERVICE AND SUPPO RT & PHONE RESULT Final Result [facility] [address] [place] [address] documented in this encounter Visit Diagnoses Diagnosis [...] RN) documented in this encounter Care Teams Data Technical Lead Relationship Specialty Start Date End Date None, Provider PCP - General 06/18/19 11/25/19 documented as of this encounter
--- OUTSIDE RECORDS SUMMARY | 2024-05-31 00:47 | XMS_ITS | Encounter Summary ---
Author Organization [facility] Address [address] [place] [address] Care Team Providers Care Diesel Retrofit Installer Name Role Phone None, Provider Primary Care Provider Unavailabl e Encounter Details Date Type Department Care Team (Late st Contact Info) Description 08/31/2019 8:45 EDT Phlebotomy Only [facility] ED Center 2 Phlebotomy [address] [place] [address] Pump Servicer, Acc Phlebotomy Ectopic , unspecified location, unspecified [...] Quant, 316(H) <5 mIU/ml 08/31/2019 11:17 EDT [facility] Comment: NOTE: : Negative: Less than 5mIU/mL Indeterminant: Between 5 and 25 mIU/mL, recommend repeat testing in 48 hours Positive: Greater than 25 mIU/mL The results of this assay can be falsely lowered due to the consumption of Biotin. Blood 08/31/2019 8:45 EDT 08/31/2019 10:29 EDT us Charu Flynn MD CHEMISTRY & BLOOD GAS OR DERABLES Final Result [facility] [address] [place] [address] documented in this encounter Visit Diagnoses Diagnosis Ectopic , unspecified location, unspecified whether intrauterine present affected by previous ectopic documented in this encounter Care Teams Diesel Retrofit Installer Relationship Specialty Start Date End Date None, Provider PCP - General 06/18/19 11/25/19 documented as of this encounter
--- OUTSIDE RECORDS SUMMARY | 2024-05-31 00:47 | XMS_ITS | Encounter Summary ---
Author Organization [facility] Address [address] [place] [address] Care Team Providers Care Food Service Agent Name Role Phone None, Provider Primary Care [...] filedocumented in this encounter Care Teams Food Service Agent Relationship Specialty Start Date End Date None, Provider PCP - General 06/18/19 11/25/19 documented as of this encounter
--- OUTSIDE RECORDS SUMMARY | 2024-05-31 00:47 | XMS_ITS | Encounter Summary ---
Author Organization [facility] Address [address] [place] [address] Care Team Providers Care Courier Delivery Driver Name Role Phone Benita Shafer ELECTION ASSISTANT Primary Care Provider [phone] Reason for Visit * Reason Onset Date Comments Results 12/04/2018 Encounter Details Date Type Department Care Team (Late st Contact Info) Description 12/04/2018 Orders Only [facility] OBGYN Services - [facility] [address] [place] [address] Lisseth Valdez RN Social History Tobacco Use [...] documented in this encounter Progress Notes * Lisseth Briscoe RN - 12/04/2018 1407 EDT Received Fax from [facility], results entered, will have faxed document scanned. documented in this encounter Plan of Treatment Not on file documented as of this encounter Procedures Procedure Name Priority Date/Time Associated Diagnosis Comments QUANT BETA HCG, Routine 12/03/2018 documented in this encounter Results * QUANT BETA HCG, (12/03/2018) HCG, External 41.94 mIU/ml [facility] Comment:non- <5 Blood specimen (specimen) 12/03/2018 us Historical Provider CHEMISTRY & BLOOD GAS ORD ERABLES Final Result [facility] documented in this encounter Visit Diagnoses Not on filedocumented in this encounter Care Teams Courier Delivery Driver Relationship Specialty Start Date End Date Benita Shafer NP PCP - General 08/22/18 06/17/19 documented as of this encounter
--- OUTSIDE RECORDS SUMMARY | 2024-05-31 00:47 | XMS_ITS | Encounter Summary ---
Author Organization [facility] Address [address] [place] [address] Care Team Providers Care Music Promoter Name Role Phone Benita Shafer PERIOPERATIVE ASSISTANT Primary Care Provider [phone] Reason for Visit * Reason Onset Date Comments Other 11/21/2018 Encounter Details Date Type Department Care Team (Late st Contact Info) Description 11/21/2018 Telephone [facility] OBGYN Services - [address] [address] Jordyn Wolfe, MARCELO Other Social History Tobacco [...] to have her beta-hCG checked today at [facility]. I will ensure that the order is in place. documented in this encounter Plan of Treatment Not on file documented as of this encounter Visit Diagnoses Not on filedocumented in this encounter Care Teams Music Promoter Relationship Specialty Start Date End Date Benita Shafer NP PCP - General 08/22/18 06/17/19 documented as of this encounter
--- OUTSIDE RECORDS SUMMARY | 2024-05-31 00:47 | XMS_ITS | Encounter Summary ---
Author Organization [facility] Address [address] [place] [address] Care Team Providers Care Resource Development Manager Name Role Phone Benita Shafer AUTOMOTIVE SHOP FOREMAN Primary Care Provider [phone] Reason for Visit * Reason Onset Date Comments Labs Only 12/20/2018 Encounter Details Date Type Department Care Team (Late st Contact Info) Description 12/20/2018 Telephone [facility] OBGYN Services - [address] [address] Susana Tomlinson, RN Labs Only Social History [...] VM, left general message: nurse calling from [facility], re: bloodwork that was due Wednesday 12/20, spoke with lab last bloodwork was done 12/13, very important to get the blood work done, can change day of blood draw if would be better to get this done on . Please call the [facility] nurses at [phone]. This is the 3rd call to her. * Telephone Encounter - Michelle Sanchez RN - 12/21/2018 0904 EDT LM asking pt to call [facility] triage to f/u. If calls back, will discuss moving blood draw for HCG to Tuesday, as pt is off work on that day. TC to [facility]; confirmed that pt has not come to lab as of 1151. * Telephone Encounter - Jordyn Wolfe RN - 12/20/2018 1653 EDT Call to [facility] lab. Patient has not gone in for blood work as of yet. Will have nurse call her tomorrow to follow-up if she has not gone in today. * Telephone Encounter - Susana Tomlinson RN - 12/20/2018 1326 EDT Spoke with lab @ [facility]: Cristy has not yet come in today for BHCG lab draw. documented in this encounter Plan of Treatment Not on file documented as of this encounter Visit Diagnoses Not on filedocumented in this encounter Care Teams Resource Development Manager Relationship Specialty Start Date End Date Benita Shafer NP PCP - General 08/22/18 06/17/19 documented as of this encounter
--- OUTSIDE RECORDS SUMMARY | 2024-05-31 00:47 | XMS_ITS | Encounter Summary ---
Author Organization [facility] Address [address] [place] [address] Care Team Providers Care Velvet Cutter Name Role Phone Benita Shafer GUSTAVO Primary Care Provider [phone] Encounter Details Date Type Department Care Team (Late st Contact Info) Description 12/11/2018 Orders Only [facility] OBGYN Services - [facility] [address] [place], [place] [id number] Charu Flynn MD [address] [facility] [address] [place] [address] Social History Tobacco Use Types [...] on filedocumented in this encounter Care Teams Velvet Cutter Relationship Specialty Start Date End Date Benita Shafer NP PCP - General 08/22/18 06/17/19 documented as of this encounter
--- OUTSIDE RECORDS SUMMARY | 2024-05-31 00:47 | XMS_ITS | Encounter Summary ---
Author Organization [facility] Address [address] [place] [address] Care Team Providers Care Sprinkler Tender Name Role Phone None, Provider Primary Care Provider Unavailabl e Reason for Visit * PLASTIC PRESS MOLDER (Routine) - Order Cancelled Specialty Diagnoses / Procedures Referred By Contac t Referred To Contact Diagnoses Less than 8 weeks gestation of Procedures US OB FIRST TRIMESTER (LESS THAN 14 WEEKS) TRANSVAGINAL Jonas Ojeda MD Phone: tel: fax: Referral ID Status Reason Start Date Expiration Date V isits Requested Visits Authorized [id number] Order Cancelled 09/05/2019 1 1 Encounter Details Date Type Department Care Team (Latest Contact Info) Description 09/17/2019 9:09 EDT - 09/18/2019 23:[address] [facility] OBGYN Services - [address] [address] Less than 8 weeks gestation of Discharge [...] Medications at Time of Discharge blood glucose test strips One Touch Verio IQ or other brand compatible with meter and covered by patient's insurance. Testing QID. 100 Each 2 10/19/2018 0 insulin aspart U-100 (NOVOLOG FLEXPEN) 100 unit/mL injectable pen Inject 2-4 Units into the skin 3 times daily with meals. Sliding scale 0 insulin glargine (LANTUS SOLOSTAR) 100 unit/mL (3 mL) injection pen Inject 10 Units into the skin at bedtime. 0 lancets One Touch Delica or other brand compatible with lancing device and covered by patient's insurance. 100 Each 2 10/19/2018 0 metFORMIN (GLUCOPHAGE) 500 mg tablet Take 1,000 mg by mouth daily. 0 oxyCODONE (ROXICODONE) 5 mg/5 mL solution Take 5 mL by mouth every 4 hours as needed for Pain. Daily Max: 30 mg 75 mL 11/21/2018 0 pseudoephedrine (SUDAFED) 30 mg tablet Take 60 mg by mouth every 4 hours. 0 UNKNOWN TO PATIENTIndicatio ns: control Take by mouth. 09/05 0 documented as of this encounter Discharge [...] corpus luteum: ??collapsed Impression OB Transvaginal - 34870 [place] viable intrauterine with dating to be [...] corpus luteum: ??collapsed Impression OB Transvaginal - 55561 [place] viable intrauterine with dating to be [...] corpus luteum: collapsed Impression OB Transvaginal - 49835 [place] viable intrauterine with dating to be based onultrasound, as above for dating. Follow-up Establish OB care. Comment ========= Results discussed with patient. DATE OF SERVICE: 09/17/2019 Jonas Ojeda MD [facility] OB ORDERABLES Edited Result - Final documented in this encounter Visit Diagnoses Diagnosis Less than 8 weeks gestation of state, incidental documented in this encounter Care Teams Sprinkler Tender Relationship Specialty Start Date End Date None, Provider PCP - General 06/18/19 11/25/19 documented as of this encounter
--- OUTSIDE RECORDS SUMMARY | 2024-05-31 00:47 | XMS_ITS | Encounter Summary ---
Author Organization [facility] Address [address] [place] [address] Care Team Providers Care High School Foreign Language Tutor Name Role Phone None, Provider Primary Care Provider Unavailabl e Reason for Visit * Reason Onset Date Comments Results 08/31/2019 Encounter Details Date Type Department Care Team (Late st Contact Info) Description 08/31/2019 Telephone [facility] OBGYN Services - [facility] [address] [place] [address] Susana Tomlinson, RN Results Social History Tobacco [...] Encounter - Susana Tomlinson RN - 08/31/2019 1347 EDT Spoke with Cristy: advised HCG from [...] call us with any concerns or questions. SPEEDER TENDER nurse line [phone], or after hours MD line [phone]. documented in this encounter Plan of Treatment Not on file documented as of this encounter Visit Diagnoses Not on filedocumented in this encounter Care Teams High School Foreign Language Tutor Relationship Specialty Start Date End Date None, Provider PCP - General 06/18/19 11/25/19 documented as of this encounter
--- OUTSIDE RECORDS SUMMARY | 2024-05-31 00:47 | XMS_ITS | Encounter Summary ---
Author Organization [facility] Address [address] [place] [address] Care Team Providers Care Lobster Man Name Role Phone None, Provider Primary Care [...] on filedocumented in this encounter Care Teams Lobster Man Relationship Specialty Start Date End Date None, Provider PCP - General 06/18/19 11/25/19 documented as of this encounter
--- OUTSIDE RECORDS SUMMARY | 2024-05-31 00:47 | XMS_ITS | Encounter Summary ---
Author Organization [facility] Address [address] [place] [address] Care Team Providers Care Ticket Printer And Tagger Name Role Phone Benita Shafer LICENSED FUNERAL DIRECTOR AND EMBALMER Primary Care Provider [phone] Reason for Visit * Reason Comments Social Work Encounter Details Date Type Department Care Team (Late st Contact Info) Description 12/15/2018 Community Health Team [facility] OBGYN Services - [facility] [address] [place] [address] Kylah Bose Social History Tobacco Use Types [...] in this encounter Progress Notes * Kylah Bose - 12/15/2018 0937 EDT Patient referred to [facility] by Dr. Ojeda. Patient did not respond to Admins attempts to schedule initial visit. SW called patient with the goal of scheduling a phone consult. Patient was at work and couldn't talk. SW attempted to text patient with SW contact info and text repeatedly came back as unde liverable. DOTTIE Diaz will check in with patient during her next Line Erector Apprentice appointment with Dr. Ojeda on 01/03. [facility] Total Time: 5 minutes phone, 5 minutes charting Referral: n/a Follow up: n/a Status: pending documented in this encounter Plan of Treatment Not on file documented as of this encounter Visit Diagnoses Not on filedocumented in this encounter Care Teams Ticket Printer And Tagger Relationship Specialty Start Date End Date Benita Shafer NP PCP - General 08/22/18 06/17/19 documented as of this encounter
--- OUTSIDE RECORDS SUMMARY | 2024-05-31 00:47 | XMS_ITS | Encounter Summary ---
Author Organization [facility] Address [address] [place] [address] Care Team Providers Care Paper Mill Supervisor Name Role Phone None, Provider Primary Care Provider Unavailabl e Reason for Visit * Reason Onset Date Comments Advice Only 10/02/2019 Encounter Details Date Type Department Care Team (Late st Contact Info) Description 10/02/2019 Telephone [facility] OBGYN Services - [address] [address] Deepali Le MD [address] [facility], [address] [place] [address] Advice Only Social History Tobacco [...] Miscellaneous Notes * Telephone Encounter - Mary Regalado, RN - 10/02/2019 1021 EDT Return call [...] Also- is she interested in CF/SMA testing? [facility] phone number left and requested patient call back. * Telephone Encounter - Cynthia Cosetllo - 10/02/2019 0848 EDT I called pt this morning to inform her of 3 scheduled appts (1 nutrition, 1 ultrasound and 1 routine ). She said yes to all three but asked if she would be getting bloodwork done at the visit(s) at the end on October, around her 12wk zandra. She would like to discuss this with a nurse. She can be reached at: [phone] documented in this encounter Plan of Treatment Not on file documented as of this encounter Visit Diagnoses Not on filedocumented in this encounter Care Teams Paper Mill Supervisor Relationship Specialty Start Date End Date None, Provider PCP - General 06/18/19 11/25/19 documented as of this encounter
--- OUTSIDE RECORDS SUMMARY | 2024-05-31 00:47 | XMS_ITS | Encounter Summary ---
Author Organization [facility] Address [address] [place] [address] Care Team Providers Care Stock Ranch Supervisor Name Role Phone Benita Shafer GUSTAVO Primary Care Provider [phone] Encounter Details Date Type Department Care Team (Late st Contact Info) Description 12/25/2018 Orders Only [facility] OBGYN Services - [facility] [address] [place], [place] [id number] Charu Flynn MD [address] [facility], [address] [place] [address] Social History Tobacco Use Types [...] HCG, External 13.63 2.39 - 15,000 mIU/mL [facility] Comment:Please see the scann ed report in EPIC for further interpretation. Blood specimen (specimen) 12/13/2018 6:27 EDT us Charu Flynn MD CHEMISTRY & BLOOD GAS OR DERABLES Final Result [facility] documented in this encounter Visit Diagnoses Not on filedocumented in this encounter Care Teams Stock Ranch Supervisor Relationship Specialty Start Date End Date Benita Shafer NP PCP - General 08/22/18 06/17/19 documented as of this encounter
--- OUTSIDE RECORDS SUMMARY | 2024-05-31 00:47 | XMS_ITS | Encounter Summary ---
Author Organization [facility] Address [address] [place] [address] Care Team Providers Care Remnant Sorter Name Role Phone None, Provider Primary Care Provider Unavailabl e Reason for Visit * Reason Onset Date Comments 08/30/2019 Encounter Details Date Type Department Care Team (Late st Contact Info) Description 08/30/2019 Telephone [facility] OBGYN Services - [facility] [address] [place] [address] Nilda Parisi RN Social History Tobacco Use [...] on filedocumented in this encounter Care Teams Remnant Sorter Relationship Specialty Start Date End Date None, Provider PCP - General 06/18/19 11/25/19 documented as of this encounter
--- OUTSIDE RECORDS SUMMARY | 2024-05-31 00:47 | XMS_ITS | Encounter Summary ---
Author Organization [facility] Address [address] [place] [address] Care Team Providers Care Epic Ambulatory Analysts Name Role Phone Benita Shafer PERSONAL LINES ACCOUNT EXECUTIVE Primary Care Provider [phone] Reason for Visit * Reason Onset Date Comments Results 12/15/2018 Encounter Details Date Type Department Care Team (Late st Contact Info) Description 12/15/2018 Telephone [facility] OBGYN Services - [address] [address] Susana Tomlinson, MARCELO Results Social History Tobacco [...] VM, left general message: nurse calling from [facility], re: blood work results, level has decreased, plan per MD team is to repeat blood work in one week from last (12/20). Also reminder that you have an appt scheduled for 02/24/19 @ 9am, also appt on 01/03 but will will check with provider to determine if appropriate. Please call the PATROL POLICE SERGEANT nurses at [phone]. When Cristy calls will give details: HCG 12/13/18 = 13.63, down from 41.94 on 12/03. Will reach out to Dr. Ojeda to determine if should keep appt with him on 01/03, as has not yet had MFM consult (missed 12/08 appt, now rescheduled for [...] 15,000 mIU/mL [facility] Blood specimen (specimen) 12/13/2018 6:27 EDT us Charu Flynn MD CHEMISTRY & BLOOD GAS OR DERABLES Final Result [facility] documented in this encounter Visit Diagnoses Not on filedocumented in this encounter Care Teams Epic Ambulatory Analysts Relationship Specialty Start Date End Date Benita Shafer NP PCP - General 08/22/18 06/17/19 documented as of this encounter
--- OUTSIDE RECORDS SUMMARY | 2024-05-31 00:47 | XMS_ITS | Encounter Summary ---
Author Organization [facility] Address [address] [place] [address] Care Team Providers Care Denial Resolution Specialist Name Role Phone None, Provider Primary Care Provider Unavailabl e Reason for Visit * Reason Comments Nutrition Counseling Type 2 DM first tri mester * Consult (Routine) - Order Cancelled Specialty Diagnoses / Procedures Referred By Kit goode Referred To Contact Obstetrics Diagnoses with type 2 diabetes mellitus in first trimester Mayra Lund MD Phone: tel: fax: [facility] Obstetrics & Midwifery [address] [address] Phone: tel: fax: Referral ID Status Reason Start Date Expiration Date Visits Requested Visits Authorized [id number] Order Cancelled Specialty Services Required 10/01/2019 1 1 Encounter Details Date Type Department Care Team (Late st Contact Info) Description 10/08/2019 14:00 EDT Nutrition [facility] Obstetrics & Midwifery [address] [id number] Security Checker, [facility] Ep4 Obgyn Class 2 severe obesity due to excess calories with serious comorbidity in adult, unspecified BMI ([facility]); Type 2 diabetes mellitus with other specified complication, unspecified whether half-way insulin use ([facility]) Social History Tobacco Use Types [...] documented in this encounter Progress Notes * Carline Weathers, LUCILLE - 10/08/2019 1400 EDT assistant editor Clinic Initial Nutrition Assessment Form Attempted Telehealth visit, but Telehealth is not available (for me or for the patient). Obtained verbal consent from patient or the patient's adult patient portal representative for use of the telephone to [...] 08/19. Followed by Dr. López/Affiliates in OBGYN Labs: Lab Results Component Value Date/Time HGBA1C [...] with serious comorbidity in adult, unspecified BMI ([facility]) Type 2 diabetes mellitus with other specified complication, unspecified whether terminal operations manager insulin use ([facility]) documented in this encounter Care Teams Denial Resolution Specialist Relationship Specialty Start Date End Date None, Provider PCP - General 06/18/19 11/25/19 documented as of this encounter
--- OUTSIDE RECORDS SUMMARY | 2024-05-31 00:47 | XMS_ITS | Encounter Summary ---
Author Organization [facility] Address [address] [place] [address] Care Team Providers Care Trainman Name Role Phone None, Provider Primary Care Provider Unavailabl e Reason for Referral * TEACHER OF THE HANDICAPPED (Routine) - Specialty Report Received Specialty Diagnoses / Procedures Referred By Contac t Referred To Contact Diagnoses of unknown anatomic location Procedures OB FIRST TRIMESTER (LESS THAN 14 WEEKS) TRANSVAGINAL Charu Flynn MD Phone: tel: fax: Referral ID Status Reason Start Date Expiration Date V isits Requested Visits Authorized [id number] Specialty Report Received 09/03/2019 1 1 Reason for Visit * TEACHER OF THE HANDICAPPED (Routine) - Specialty Report Received Specialty Diagnoses / Procedures Referred By Contac t Referred To Contact Diagnoses of unknown anatomic location Procedures US OB FIRST TRIMESTER (LESS THAN 14 WEEKS) TRANSVAGINAL Charu Flynn MD Phone: tel: fax: Referral ID Status Reason Start Date Expiration Date V isits Requested Visits Authorized [id number] Specialty Report Received 09/03/2019 1 1 Encounter Details Date Type Department Care Team (Latest Contact Info) Description 09/05/2019 10:26 EDT - 09/06/2019 23:59 EDT Hospital Encounter [facility] OBGYN Services - [facility] [place] [address] [place] [address] of unknown anatomic location Discharge Disposition: Home [...] Sufficient. Impression 1st Trimester OB scan ,transvaginal +16511 Single intrauterine gestational sac and yolk sac. [...] Sufficient. Impression 1st Trimester OB scan ,transvaginal +86525 Single intrauterine gestational sac and yolk sac. A pole cannot beclearly identified on today's examination. Follow-up follow up US in 2 weeks. Comment ========= Z34.8 encounter for supervision of other normal . Resultsdiscussed w/patient. DATE OF SERVICE: 09/05/2019 Charu Flynn MD [facility] OB ORDERABLES Fin al Result documented in this encounter Visit Diagnoses Diagnosis of unknown anatomic location state, incidental documented in this encounter Care Teams Trainman Relationship Specialty Start Date End Date None, Provider PCP - General 06/18/19 11/25/19 documented as of this encounter
--- OUTSIDE RECORDS SUMMARY | 2024-05-31 00:47 | XMS_ITS | Encounter Summary ---
Author Organization [facility] Address [address] [place] [address] Care Team Providers Care Rheumatology Nurse Name Role Phone Benita Shafer BILLPOSTING SUPERVISOR Primary Care Provider [phone] Reason for Visit * Reason Onset Date Comments Labs Only 12/11/2018 Encounter Details Date Type Department Care Team (Late st Contact Info) Description 12/11/2018 Telephone [facility] OBGYN Services - [address] [address] Susana Tomlinson, RN Labs Only Social History [...] calling from [facility], re: blood work, were able to have blood work done last week from labs [place] [facility], plan was repeat blood work yesterday 12/10, need to follow this to zero, very important to have this follow-up. Please call the PAINTER CHASSIS nurses at [phone]. documented in this encounter Plan of Treatment Not on file documented as of this encounter Visit Diagnoses Not on filedocumented in this encounter Care Teams Rheumatology Nurse Relationship Specialty Start Date End Date Benita Shafer NP PCP - General 08/22/18 06/17/19 documented as of this encounter
--- OUTSIDE RECORDS SUMMARY | 2024-05-31 00:47 | XMS_ITS | Encounter Summary ---
Author Organization [facility] Address [address] [place] [address] Care Team Providers Care Senior Energy Analyst Name Role Phone Benita Shafer ROD FILLER Primary Care Provider [phone] Reason for Visit * Reason Onset Date Comments Labs Only 12/12/2018 Encounter Details Date Type Department Care Team (Late st Contact Info) Description 12/12/2018 Telephone [facility] OBGYN Services - [address] [address] Susana Tomlinson, MARCELO Labs Only Social History Tobacco Use [...] Telephone Encounter - Susana Tomlinson RN - 12/12/2018 1002 EDT Spoke with [facility]: last HCG blood draw @ their [...] filedocumented in this encounter Care Teams Senior Energy Analyst Relationship Specialty Start Date End Date Benita Shafer NP PCP - General 08/22/18 06/17/19 documented as of this encounter
--- OUTSIDE RECORDS SUMMARY | 2024-05-31 00:47 | XMS_ITS | Encounter Summary ---
Author Organization [facility] Address [address] [place] [address] Care Team Providers Care Estimate Clerk Name Role Phone Benita Shafer VEIN PUMPER Primary Care Provider [phone] Reason for Visit * Reason Comments Social Work Encounter Details Date Type Department Care Team (Late st Contact Info) Description 01/03/2019 Community Health Team [facility] OBGYN Services - [facility] [address] [place] [address] Eryn Diaz Social History Tobacco Use Types [...] encounter Progress Notes * Eryn Diaz - 01/03/2019 1021 EDT Care coord with RN Susana Tomlinson re SW referral for pt. Disc pt needs / ways SW can offer support. Pt sometimes doesn't attend appts and SW was split between sites today, so SW called pt to see if she was planning to attend her appt at [address] Piecre Ojeda today. Spoke with pt who said she didn't know about the appt and said she has one 01/12 at 10:30. SW intro role and supports, and offered to tag onto appt, which pt agreed to. SW called pt back later in day however to inform her that her next sched [facility] appts are on 01/10 and03/02 (left vm). [...] on filedocumented in this encounter Care Teams Estimate Clerk Relationship Specialty Start Date End Date Benita Shafer NP PCP - General 08/22/18 06/17/19 documented as of this encounter
--- OUTSIDE RECORDS SUMMARY | 2024-05-31 00:47 | XMS_ITS | Encounter Summary ---
Author Organization [facility] Address [address] [place] [address] Care Team Providers Care Senior Trial Attorney Name Role Phone Benita Shafer GUSTAVO Primary Care Provider [phone] Reason for Visit * Reason Onset Date Comments Appointment Related 12/11/2018 Encounter Details Date Type Department Care Team (Late st Contact Info) Description 12/11/2018 Telephone [facility] Obstetrics & Midwifery - [facility] [address] [place], [place] [id number] Nohemy Sales MD [address] [facility], [address] [place] [address] Appointment Related Social History Tobacco [...] filedocumented in this encounter Care Teams Senior Trial Attorney Relationship Specialty Start Date End Date Benita Shafer NP PCP - General 08/22/18 06/17/19 documented as of this encounter
--- OUTSIDE RECORDS SUMMARY | 2024-05-31 00:47 | XMS_ITS | Encounter Summary ---
Author Organization [facility] Address [address] [place] [address] Care Team Providers Care Portfolio Assistant Name Role Phone Benita Shafer FILLER SPREADER Primary Care Provider [phone] Reason for Visit * Reason Onset Date Comments Results 12/13/2018 Encounter Details Date Type Department Care Team (Late st Contact Info) Description 12/13/2018 Telephone [facility] OBGYN Services - [address] [address] Susana Tomlnison, MARCELO Results Social History Tobacco Use Types [...] RN - 12/13/2018 1013 EDT Spoke with [facility] lab: Cristy got her blood drawn thsi am, however the machine that is used to process BHCG is not working, they anticipate that it will be fixed tomorrow. documented in this encounter Plan of Treatment Not on file documented as of this encounter Visit Diagnoses Not on filedocumented in this encounter Care Teams Portfolio Assistant Relationship Specialty Start Date End Date Benita Shafer NP PCP - General 08/22/18 06/17/19 documented as of this encounter
--- OUTSIDE RECORDS SUMMARY | 2024-05-31 00:47 | XMS_ITS | Encounter Summary ---
Author Organization [facility] Address [address] [place] [address] Care Team Providers Care Carrier Associate Name Role Phone None, Provider Primary Care [...] on filedocumented in this encounter Care Teams Carrier Associate Relationship Specialty Start Date End Date None, Provider PCP - General 06/18/19 11/25/19 documented as of this encounter
--- OUTSIDE RECORDS SUMMARY | 2024-05-31 00:47 | XMS_ITS | Encounter Summary ---
Author Organization [facility] Address [address] [place] [address] Care Team Providers Care Black And White Printer Operator Name Role Phone None, Provider Primary Care Provider Unavailabl e Reason for Visit * Reason Onset Date Comments Vaginal Bleeding 10/11/2019 Encounter Details Date Type Department Care Team (Late st Contact Info) Description 10/11/2019 Telephone [facility] OBGYN [address] [place], [place] [id number] Mayra Lund MD [address] [place] [address] Vaginal Bleeding Social History Tobacco [...] Telephone Encounter - Mayra Lund MD - 10/11/2019 2005 EDT 34 yo at 9.3 wk GA [...] ago for spotting. Mayra Lund MD PhD MFM Fellow, PGY5 Pager #[phone] documented in this encounter Plan of Treatment Not on file documented as of this encounter Visit Diagnoses Not on filedocumented in this encounter Care Teams Black And White Printer Operator Relationship Specialty Start Date End Date None, Provider PCP - General 06/18/19 11/25/19 documented as of this encounter
--- OUTSIDE RECORDS SUMMARY | 2024-05-31 00:47 | XMS_ITS | Encounter Summary ---
Author Organization [facility] Address [address] [place] [address] Care Team Providers Care Make Ready Worker Name Role Phone None, Provider Primary Care Provider Unavailabl e Encounter Details Date Type Department Care Team (Late st Contact Info) Description 10/04/2019 Orders Only [facility] Obstetrics & Midwifery - [address] [address] Kylah Jimenes, RN Social History Tobacco Use [...] Refills Last Filled Start Date End Date blood glucose meter One Touch Verio Flex meter. 1 Each 10/04/2019 12/21/2021 documented in this encounter Plan of Treatment Not on file documented as of this encounter Visit Diagnoses Not on filedocumented in this encounter Care Teams Make Ready Worker Relationship Specialty Start Date End Date None, Provider PCP - General 06/18/19 11/25/19 documented as of this encounter
--- OUTSIDE RECORDS SUMMARY | 2024-05-31 00:47 | XMS_ITS | Encounter Summary ---
Author Organization [facility] Address [address] [place] [address] Care Team Providers Care Woodworking Machinist Name Role Phone None, Provider Primary Care [...] on filedocumented in this encounter Care Teams Woodworking Machinist Relationship Specialty Start Date End Date None, Provider PCP - General 06/18/19 11/25/19 documented as of this encounter
--- OUTSIDE RECORDS SUMMARY | 2024-05-31 00:47 | XMS_ITS | Encounter Summary ---
Author Organization [facility] Address [address] [place] [address] Care Team Providers Care Assisted Living Associate Name Role Phone None, Provider Primary Care Provider Unavailabl e Reason for Visit * Reason Comments Initial Visit Encounter Details Date Type Department Care Team (Late st Contact Info) Description 10/01/2019 15:00 EDT Telemedicine [facility] Obstetrics & Midwifery - [address] [id number] Deepali Le MD [address] [place] [address], [address] [place] [address] with type 2 diabetes mellitus [...] patient's insurance. 100 Each 5 10/01/2019 1 blood glucose test strips One Touch Verio IQ or other brand compatible with meter and covered by patient's insurance. Testing QID. 100 Each 5 10/01/2019 1 folic acid (FOLVITE) 1 mg tablet Take 4 Tabs by mouth daily. 100 Tab 3 10/01/2019 0 documented in this encounter Progress Notes * Mayra Lund MD - 10/01/2019 1500 EDT [facility] Maternal Medicine History & Physical [...] has ranged from 8.8-11.2. Hasn't seen an supervisor inspection room in about a year due to some [...] 10/2018 10w4d ECTOPIC Comments: interstitial diagnosed at [facility]; given MTX 10/26/18 6 SAB 01/2018 6w0d SAB Comments: D&C at [facility] after nonviable on US; had to have repeat D&Bhavna November for retained POCs 5 06/2017 6w0d SAB Comments: D&C at [facility]; nonviable seen on US; fourth with current 4 SAB 02/2017 6w0d SAB Comments: D&C at [facility]; third with current 3 SAB 08/2015 10w0d SAB Comments: D&C at [facility]; 2nd with current 2 SAB 01/2015 9w0d SAB Comments: D&C at [facility]; first current 1 SAB 2005 6w0d SAB Comments: first ; ex ; twin confirmed by US at [facility]; no medical or surgical tx Past gynecological history: Regular monthly periods. Last Pap in January 2019 reports normal, never had abnormal Pap. No STIs. Past medical history: Cristy has a past medical history of Depression, Diabetes mellitus ([facility]), Migraine, unspecified, without mention of intractable [...] the family. FOB great uncles all had GA under age 35. FOB twin brother at [...] miscarriage. High-risk in first trimester - Reviewed [facility] group practice and clinic flow. - labs [...] Lund MD PhD MFM Fellow, PGY5 Pager #[phone] Today's visit was provided through telemedicine audio-visual [...] participated in today's encounter: Cristy Luo, patient Deepali Le MD, attending Mayra Lund MD, provider The audio-video application used to conduct the visit was avandeo. I spent a total of 15 minutes [...] in first trimester (Resolved 11/02/2019) - Reviewed [facility] group practice and clinic flow. - labs [...] documented as of this encounter Care Teams Assisted Living Associate Relationship Specialty Start Date End Date None, Provider PCP - General 06/18/19 11/25/19 documented as of this encounter
--- OUTSIDE RECORDS SUMMARY | 2024-05-31 00:47 | XMS_ITS | Encounter Summary ---
Author Organization [facility] Address [address] [place] [address] Care Team Providers Care Light Rail Signal Technician Name Role Phone None, Provider Primary Care Provider Unavailabl e Reason for Visit * Reason Onset Date Comments Coordination Of Care 09/18/2019 Encounter Details Date Type Department Care Team (Late st Contact Info) Description 09/18/2019 Telephone [facility] OBGYN Services - [facility] [address] [place] [address] Cristy Richmond, RN Coordination Of Care Social [...] on filedocumented in this encounter Care Teams Light Rail Signal Technician Relationship Specialty Start Date End Date None, Provider PCP - General 06/18/19 11/25/19 documented as of this encounter
--- OUTSIDE RECORDS SUMMARY | 2024-05-31 00:47 | XMS_ITS | Encounter Summary ---
Author Organization [facility] Address [address] [place] [address] Care Team Providers Care Wood Last Maker Name Role Phone None, Provider Primary Care Provider Unavailabl e Reason for Visit * Reason Comments Injections RhoGAM Encounter Details Date Type Department Care Team (Late st Contact Info) Description 10/03/2019 10:30 EDT Office Visit [facility] Obstetrics & Midwifery - [facility] [address] [place] [address] Nurse, Mfm First trimester bleeding (Primary Dx) [...] documented in this encounter Progress Notes * Maryann Heart [...] eltoid documented in this encounter Care Teams Wood Last Maker Relationship Specialty Start Date End Date None, Provider PCP - General 06/18/19 11/25/19 documented as of this encounter
--- OUTSIDE RECORDS SUMMARY | 2024-05-31 00:47 | XMS_ITS | Encounter Summary ---
Author Organization [facility] Address [address] [place] [address] Care Team Providers Care Card Reader Name Role Phone Benita Shafer GUSTAVO Primary Care Provider [phone] Reason for Visit * Reason Onset Date Comments Appointment Related 03/02/2019 Encounter Details Date Type Department Care Team (Late st Contact Info) Description 03/02/2019 Telephone [facility] Obstetrics & Midwifery - [facility] [address] [place], [place] [id number] Deborah Prakash MD [address] [facility], [address] [place] [address] Appointment Related Social History Tobacco [...] filedocumented in this encounter Care Teams Card Reader Relationship Specialty Start Date End Date Benita Shafer NP PCP - General 08/22/18 06/17/19 documented as of this encounter
--- OUTSIDE RECORDS SUMMARY | 2024-05-31 00:47 | XMS_ITS | Encounter Summary ---
Author Organization [facility] Address [address] [place] [address] Care Team Providers Care Music Leader Name Role Phone Benita Shafer DIET AIDE Primary Care Provider [phone] Reason for Visit * Reason Onset Date Comments Results 12/04/2018 Encounter Details Date Type Department Care Team (Late st Contact Info) Description 12/04/[address] [facility] OBGYN Services - [address] [address] Lisseth Valdez, MARCELO Results Social History Tobacco [...] Encounter - Lisseth Briscoe RN - 12/04/2018 1415 EDT LVM for [...] w/ dr beckwith. Please call us at [phone]. LVM for Cristy stating this is the nurse again, I forgot to tell you that based on your new result we would like for you to repeat your blood work on 12/10. documented in this encounter Plan of Treatment Not on file documented as of this encounter Visit Diagnoses Not on filedocumented in this encounter Care Teams Music Leader Relationship Specialty Start Date End Date Benita Shafer NP PCP - General 08/22/18 06/17/19 documented as of this encounter
--- OUTSIDE RECORDS SUMMARY | 2024-05-31 00:47 | XMS_ITS | Encounter Summary ---
Author Organization [facility] Address [address] [place] [address] Care Team Providers Care Company Laborer Name Role Phone None, Provider Primary Care Provider Unavailabl e Reason for Visit * Reason Onset Date Comments 08/30/2019 Encounter Details Date Type Department Care Team (Late st Contact Info) Description 08/30/2019 Telephone [facility] Obstetrics & Midwifery - [facility] [address] [place] [address] Kylah Jimenes RN Social History Tobacco Use [...] Kylah Jimenes RN - 08/30/2019 1551 EDT [place] Initial Appt Screening Form Best Contact Number: [phone] [facility] Provider: HUGO Previous MFM Patient: YES: No Referred by: self High [...] patient packet mailed to confirmed address in [facility]: No Other comments: Has seen Endo, but not since 11/22. Previous ectopic -- notes in [facility]. HCG orders placed. Pt aware to get drawn 48 hours apart. She isaware that she will get a call from a nurse with a plan after the results are in. She is agreeable to this. Message routed to CHAIR CAR ATTENDANT team to get into Beta Book. documented in this encounter Plan of Treatment Not on file documented as of this encounter Results * (ABNORMAL) QUANT BETA HCG, (09/02/2019 9:42 EDT) Beta HCG Quant, 707(H) <5 mIU/ml 09/02/2019 10:30 EDT [facility] Comment: NOTE: : Negative: Less than 5mIU/mL Indeterminant: Between 5 and 25 mIU/mL, recommend repeat testing in 48 hours Positive: Greater than 25 mIU/mL The results of this assay can be falsely lowered due to the consumption of Biotin. Blood VENOUS BLOOD / Unknown Venipuncture / Unknown 09/02/2019 9:42 EDT 09/02/2019 9:45 EDT us Charu Flynn MD CHEMISTRY & BLOOD GAS OR DERABLES Final Result [facility] [address] [place] [address] documented in this encounter Visit Diagnoses Diagnosis affected by previous ectopic - Primary documented in this encounter Care Teams Company Laborer Relationship Specialty Start Date End Date None, Provider PCP - General 06/18/19 11/25/19 documented as of this encounter
--- OUTSIDE RECORDS SUMMARY | 2024-05-31 00:47 | XMS_ITS | Encounter Summary ---
Author Organization [facility] Address [address] [place] [address] Care Team Providers Care Bleach Range Operator Name Role Phone None, Provider Primary [...] 8:19 EST - 06/18/2019 15:19 EST Emergency [facility] Emergency Department - [facility] [address] [place] [phone] Maldonado Schuler PA-C [address] [place] [address], [address] [place] [id number] Acute non-recurrent maxillary sinusitis (Primary Dx); Acute [...] this encounter Discharge Instructions * Discharge Instructions* Maldonado Carrillo PA - 06/18/2019 9:55 EST You [...] be sent through Care Everywhere. * Sinusitis (Urdu) documented in this encounter Medications at Time of Discharge amoxicillin-clav ulanate (AUGMENTIN) 875-125 mg per tablet Take 1 Tab by mouth 2 times daily for 10 days. 20 Tab 06/18/2019 0 blood glucose test strips One Touch Verio [...] 09/05 0 documented as of this encounter Ordered Prescriptions Prescription Sig Dispense Quantity Refills Last Filled Start Date End Date amoxicillin-clavula huma (AUGMENTIN) 875-125 mg per tablet Take 1 Tab by mouth 2 times daily for 10 days. 20 Tab 06/18/2019 06/28/2019 documented in this encounter Discharge Disposition Disposition Code Departure Means Destination Home or Self Mcfp documented in this encounter ED Notes * Maldonado Carrillo PA - 06/18/2019 0855 EST DOS: [...] recent long-distance travel or immobilizations. 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 Review of [...] appears to be a good tracing. Attending wood strip block floor installer not immediately available for acute interpretation. Radiology [...] follow-up with primary care physician and discussed qowm-vnu-itzbvlg medications for pain control. Patient and family [...] 06/18/2019 14:44 No flowsheet data found. * uJdi Merrill RN - 06/18/2019 0837 EST 12 Lead EKG Performed by JUDI MERRILL RN and shown to Maldonado Schuler PA. documented in this encounter Plan [...] (06/18/2019 16:21 EST) 06/18/2019 16:2 1 EST us Scan 2 Beer Maker PROCEDURE/MINOR SURGICAL OR DERABLES Final Result * XR CHEST 2 VIEWS (06/18/2019 9:31 [...] the above interpretation andagree with the findings. Maldonado Schuler PA-C [facility] ORDERABLES Final Result * (ABNORMAL) BASIC METABOLIC PANEL (BMP) (06/18/2019 [...] Unknown 06/18/2019 9:01 EST 06/18/2019 9:09 EST Maldonado Schuler PA-C CHEMISTRY & BLOOD GAS O RDERABLES Final Result [facility] [address] [place] [address] * (ABNORMAL) COMPLETE BLOOD COUNT AND DIFFERENTIAL [...] Unknown 06/18/2019 9:01 EST 06/18/2019 9:09 EST us Maldonado Taylor Clair PA-C PACKAGES & DNA PROBE OR DERABLES Final Result [facility] [address] [place] [address] * EKG 12-LEAD (06/18/2019 8:28 EST) 06/18/2019 8:28 EST Narrative [facility] EKG - 06/18/2019 14:05 EST ?[facility] Emergency ? Test Date: ?2019-06-18 Pat Name: ? CRISTY LUO ?Department: ?? ED ? Room: ? GT33 Gender: ? Female ? Sales Teacher: ?? [id number] : ?1985 ? Requested By: Reid BRYAN MALDONADO Order Number: [id number] ? Reading MD: ?? FRAN LUCIANO SA, MD ? Measurements Intervals ?[place] ? Rate: ? 94 ? P: ?51 PA: ? 138 ?QRS: ?8 QRSD: ? 88 [...] Fran Dowling Sa, MD - 06/18/2019 [facility] Emergency Test Date: 2019-06-18 Pat Name: CRISTY LUO Department: ED Room: 33 Gender: Female Sales Teacher: [id number] : 1985 Requested By: [facility] Order Number: [id number] Sammie MD: FRAN GRAYSON Measurements Intervals [place] Rate: 94 P: 51 PA: 138 QRS: 8 QRSD: 88 T: 1 QT: 335 QTc: 421 Interpretive Statements SINUS RHYTHM Automated Interpretation. Provider Interpretation to follow. Compared to ECG 03/08/2016 16:14:31 Sinus tachycardia no longer present T-wave abnormality no longer present I reviewed the tracing and have either agreed or edited the findings inthis report. Electronically Signed On 06-18-2019 14:05:54 EST by FRAN PALACIOS SA, MD. Maldonado Schuler PA-C CARDIAC ECG ORDERABLES Final Result [facility] EKG documented in this encounter Visit Diagnoses Diagnosis Acute non-recurrent maxillary sinusitis- Primary Acute nonintractable headache, unspecified headache type Hyperglycemia Other abnormal glucose documented in this encounter Administered Medications Inactive Administered Medications - up to 3 most recent administrations Medication Order MAR Action Action Date Dose Rate Site lactated ringers BOLUS 1,000 mL 1,000 mL, intravenous, NOW X1, 1 dose, On Tue06/18/19 at 0900, STAT New Bag 06/18/2019 9:06 [...] not cover this medication. There is an zhqa-fkt-xxtiywn cream or an wjqm-doh-ftnnnkc patch with a lower concentration that is available. Please substitute this if your insurance company does not cover this m Therapy completed 11/01/2018 06/18/2019 VIT 91/IRON/FOLIC/DHA ( + DHA ORAL) Take by mouth. Therapy completed 06/18/19 documented as of this encounter Historical Medications * This list may reflect changes made after this encounter. pseudoephedrine (SUDAFED) 30 mg tablet Take 60 mg by mouth every 4 hours. 10/01/2019 added in this encounter Active and Recently Administered Medications Times are shown in EST. Scheduled Medication Order 06/16/2019 06/17/2019 06/18/2019 lactated ringers BOLUS 1,000 mL (COMPLETED) 1,000 mL, intravenous, NOW X1, 1 dose, On Tue06/18/19 at 0900, STAT 0906 ([facility] ider: Judi Merrill RN) documented in this encounter Care Teams Bleach Range Operator Relationship Specialty Start Date End Date None, Provider PCP - General 06/18/19 11/25/19 documented as of this encounter
--- OUTSIDE RECORDS SUMMARY | 2024-05-31 00:47 | XMS_ITS | Encounter Summary ---
Author Organization [facility] Address [address] [place] [address] Care Team Providers Care Sieve Repairer Name Role Phone Benita Shafer CASING CREW Primary Care Provider [phone] Reason for Visit * Reason Onset Date Comments Results 12/25/2018 Encounter Details Date Type Department Care Team (Late st Contact Info) Description 12/25/2018 Telephone [facility] OBGYN Services - [address] [address] Susana Tomlinson, MARCELO Results Social History Tobacco [...] Encounter - Susana Tomlinson RN - 12/25/2018 0907 EDT Spoke with [facility] lab, Cristy has not has HCG blood draw sine 12/13/18. Letter sent, removed from Beta Book. documented in this encounter Plan of Treatment Not on file documented as of this encounter Visit Diagnoses Not on filedocumented in this encounter Care Teams Sieve Repairer Relationship Specialty Start Date End Date Benita Shafer NP PCP - General 08/22/18 06/17/19 documented as of this encounter
--- OUTSIDE RECORDS SUMMARY | 2024-05-31 00:47 | XMS_ITS | Encounter Summary ---
Author Organization [facility] Address [address] [place] [address] Care Team Providers Care Certified Medical Aide Name Role Phone None, Provider Primary Care Provider Unavailabl e Encounter Details Date Type Department Care Team (Late st Contact Info) Description 09/02/2019 9:45 EDT Phlebotomy Only [facility] 2 Phlebotomy [address] [place] [address] Conservation Biology Professor, Acc Phlebotomy affected by previous ectopic (Primary [...] Quant, 707(H) <5 mIU/ml 09/02/2019 10:30 EDT [facility] Comment: [...] & BLOOD GAS OR DERABLES Final Result [facility] [address] [place] [address] documented in this encounter Visit Diagnoses Diagnosis affected by previous ectopic - Primary documented in this encounter Care Teams Certified Medical Aide Relationship Specialty Start Date End Date None, Provider PCP - General 06/18/19 11/25/19 documented as of this encounter
--- OUTSIDE RECORDS SUMMARY | 2024-05-31 00:48 | XMS_ITS | Encounter Summary ---
Author Organization [facility] Address [address] [place] [address] Care Team Providers Care Spinneret Cleaner Name Role Phone Benita Shafer GUSTAVO Primary Care Provider [phone] Encounter Details Date Type Department Care Team (Late st Contact Info) Description 10/26/2018 Phlebotomy Only [address] [address] Soda Dry House Operator, Outpatient 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 (Primary [...] 10 - 26 mg/dl 10/26/2018 13:09 EDT [facility] Blood specimen (specimen) BLOOD SPECIMEN / Unknown 10/26/2018 12:28 EDT 10/26/2018 12:42 EDT Charu Flynn MD CHEMISTRY & BLOOD GAS OR DERABLES Final Result Performing Organization Address [facility] Co de Phone Number [facility] [address] [place] [address] * (ABNORMAL) CREATININE (10/26/2018 12:28 EDT) Creatinine 0.44(L) 0.52 - 1.04 mg/dl 10/26/2018 13:09 EDT [facility] GFR, Calculated 133 >60 ml/min/1.7 3m2 10/26/2018 13:09 EDT [facility] Comment: eGFR calculated using CKD-EPI equation for non Americans. Multiply eGFR by 1.16 for Americans. Blood specimen (specimen) BLOOD SPECIMEN / Unknown 10/26/2018 12:28 EDT 10/26/2018 12:42 EDT us Charu Flynn MD CHEMISTRY & BLOOD GAS OR DERABLES Final Result Performing Organization Address City/[facility]/ZIP Co de Phone Number [facility] [address] [place] [address] * ALT (10/26/2018 12:28 EDT) ALT 22 <53 U/L 10/26/2018 13:09 EDT [facility] Blood specimen (specimen) BLOOD SPECIMEN / Unknown 10/26/2018 12:28 EDT 10/26/2018 12:42 EDT us Charu Flynn MD CHEMISTRY & BLOOD GAS OR DERABLES Final Result Performing Organization Address City/[facility]/ZIP Co de Phone Number [facility] [address] [place] [address] * (ABNORMAL) AST (10/26/2018 12:28 EDT) AST 14(L) 15 - 46 U/L 10/26/2018 13:09 EDT [facility] Blood specimen (specimen) BLOOD SPECIMEN / Unknown 10/26/2018 12:28 EDT 10/26/2018 12:42 EDT us Charu Flynn MD CHEMISTRY & BLOOD GAS OR DERABLES Final Result Performing Organization Address [facility] de Phone Number [facility] [address] [place] [address] * COMPLETE BLOOD COUNT (10/26/2018 12:28 EDT) WBC 11.89 4.0 - 12.4 K/cmm 10/26/2018 13:06 [facility] RBC 4.82 3.86 - 5.04 M/cmm 10/26/2018 13:06 [facility] Hemoglobin 15.0 11.6 - 15.2 gm/dl 10/26/2018 13:06 [facility] HCT 42.5 34.9 - 44.4 % 10/26/2018 13:06 [facility] MCV 88 81 - 98 fl 10/26/2018 13:06 [facility] MCH 31.1 26.7 - 33.3 pg 10/26/2018 13:06 [facility] MCHC 35.3 32.1 - 35.9 gm/dl 10/26/2018 13:06 [facility] RDW-CV 11.9 <14.7 % 10/26/2018 13:06 [facility] RDW-SD 38.2 <50.4 fl 10/26/2018 13:06 EDT [facility] PLT 358 141 - 377 K/cmm 10/26/2018 13:06 EDT [facility] MPV 10.0 9.5 - 12.7 fl 10/26/2018 13:06 EDT [facility] Blood specimen (specimen) BLOOD SPECIMEN / Unknown 10/26/2018 12:28 EDT 10/26/2018 12:42 EDT us Charu Flynn MD HEMATOLOGY & PF4 ORDERAB LES Final Result [facility] [address] [place] [address] documented in this encounter Visit Diagnoses Diagnosis 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 - Primary documented in this encounter Care Teams Spinneret Cleaner Relationship Specialty Start Date End Date Benita Shafer NP PCP - General 08/22/18 06/17/19 documented as of this encounter
--- OUTSIDE RECORDS SUMMARY | 2024-05-31 00:48 | XMS_ITS | Encounter Summary ---
Author Organization [facility] Address [address] [place] [address] Care Team Providers Care Director Housekeeping Name Role Phone Benita Shafer WATER TRUCK DRIVER Primary Care Provider [phone] Encounter Details Date Type Department Care Team (Late st Contact Info) Description 10/29/2018 Phlebotomy Only [address] [address] Shift Supervisor Film Processing, Outpatient 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 (Primary Dx) [...] Preg 2,338(H) <5 mIU/ml 10/29/2018 10:12 EDT [facility] Comment: Reference Range: Negative = <5 Indeterminate = 5-25 recommend repeat in 48 hours. Positive = >25 The results of this assay can be falsely lowered due to the consumption of Biotin. Blood specimen (specimen) BLOOD SPECIMEN / Unknown 10/29/2018 9:20 EDT 10/29/2018 9:38 EDT us Charu Flynn MD CHEMISTRY & BLOOD GAS OR DERABLES Final Result [facility] [address] [place] [address] documented in this encounter Visit Diagnoses Diagnosis 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 - Primary documented in this encounter Care Teams Director Housekeeping Relationship Specialty Start Date End Date Benita Shafer NP PCP - General 08/22/18 06/17/19 documented as of this encounter
--- OUTSIDE RECORDS SUMMARY | 2024-05-31 00:48 | XMS_ITS | Encounter Summary ---
Author Organization [facility] Address [address] [place] [address] Care Team Providers Care Scrum Master Name Role Phone Benita Shafer DEALER RELATIONSHIP MANAGER Primary Care Provider [phone] Reason for Visit * Reason Onset Date Comments Labs Only 10/29/2018 Encounter Details Date Type Department Care Team (Late st Contact Info) Description 10/29/2018 Telephone [facility] OBGYN Services - [address] [phone] Deborah Saleh MD [address] [place] [address] Labs Only Social History Tobacco Use Types Packs/Day Years Used Date Smoking Tobacco: Every Day Cigarettes Smokeless Tobacco: Never Alcohol Use Standard Drinks/Week Comments Yes 0 (1 standard drink = 0.6 oz pur e alcohol) very rare Comments No Sex and Gender Information Value Date Recorded Sex Assigned at Not on file Legal Sex Female 17:41 EST Gender Identity Female 06/18/2019 8:54 EST Sexual Orientation Not on file documented as of this encounter Miscellaneous Notes * Telephone Encounter - Deborah Saleh MD - 10/29/2018 6410 EDT Left voicemail indicating we received Day 4 HCG s/p MTX. No changes to plan. Next lab draw on Day 7. Deborah Saleh MD 10/29/2018 17:50 Obstetrics & Gynecology, PGY-4 Pager [phone] documented in this encounter Plan of Treatment Not on file documented as of this encounter Visit Diagnoses Diagnosis Ectopic , unspecified location, unspecified whether intrauterine present- Primary documented in this encounter Care Teams Scrum Master Relationship Specialty Start Date End Date Benita Shafer NP PCP - General 08/22/18 06/17/19 documented as of this encounter
--- OUTSIDE RECORDS SUMMARY | 2024-05-31 00:48 | XMS_ITS | Encounter Summary ---
Author Organization [facility] Address [address] [place] [address] Care Team Providers Care Battery Plate Assembler Name Role Phone Benita Shafer GUSTAVO Primary Care Provider [phone] Encounter Details Date Type Department Care Team (Late st Contact Info) Description 10/24/2018 Orders Only [facility] OBGYN Services - [address] [id number] Ana Coronado MD [address] [facility], [address] [place] [address] Complication of in first trimester [...] Preg 1,286(H) <5 mIU/ml 10/24/2018 15:40 EDT [facility] Comment: Reference Range: Negative = <5 Indeterminate = 5-25 recommend repeat in 48 hours. Positive = >25 The results of this assay can be falsely lowered due to the consumption of Biotin. Blood specimen (specimen) BLOOD SPECIMEN / Unknown 10/24/2018 14:42 EDT 10/24/2018 14:54 EDT us Ana Coronado MD CHEMISTRY & BLOOD GAS CLEMENTE GOLDEN Final Result [facility] [address] [place] [address] documented in this encounter Visit Diagnoses Diagnosis Complication of in first trimester- Primary documented in this encounter Care Teams Battery Plate Assembler Relationship Specialty Start Date End Date Benita Shafer NP PCP - General 08/22/18 06/17/19 documented as of this encounter
--- OUTSIDE RECORDS SUMMARY | 2024-05-31 00:48 | XMS_ITS | Encounter Summary ---
Author Organization [facility] Address [address] [place] [address] Care Team Providers Care Account Support Specialist Name Role Phone Benita Shafer GUSTAVO Primary Care Provider [phone] Reason for Visit * Reason Comments Eye Problem Left eye lid pain an d swelling, onset Tuesday fiordaliza. recent shingle in that eye Encounter Details Date Type Department Care Team (Latest Contact Info) Description 09/06/2018 8:37 EDT - 09/06/2018 10:13 EDT Hospital Encounter [facility] - [address] [address] Fran Blanco MD 0 [place] [phone] Unknown, Provider, Hordeolum externum of left upper eyelid (Primary [...] this encounter Medications at Time of Discharge insulin aspart U-100 (NOVOLOG FLEXPEN) 100 unit/mL injectable pen Inject 2-4 Units into the skin 3 times daily with meals. Sliding scale 10/01/2019 insulin glargine (LANTUS SOLOSTAR) 100 unit/mL (3 mL) injection pen Inject 10 Units into the skin at bedtime. 11/26/2019 metFORMIN (GLUCOPHAGE) 500 mg tablet Take 1,000 mg by mouth daily. 11/26/2019 VIT 91/IRON/FOLIC/DHA ( + DHA ORAL) Take by mouth. 06/18/2019 UNKNOWN TO PATIENTIndication s: control Take by mouth. 10/01/2019 documented as of this encounter Discharge Disposition Disposition Code Departure Means Destination Home or Self Care Walk-out Home documented in this encounter ED Notes * Valencia Davila, MARCELO - 09/06/2018 1052 EDT [facility] to call [facility] Levine [facility] have follow up appointment today, no answer, left voicemail message requesting them to return my call or call patientdirectly, no call back, patient will go directly to office from here. Dr Blanco aware * Fran Blanco MD, - 09/06/2018 1013 EDT DOS: 09/06/2018 Chief [...] beginning of August. She was seen in [place] and had follow-up with the digital marketing manager, Dr. Jerad Cruz. She reports that her symptoms completely resolved with the initial treatment. However around August 22 she had a rec urrence of the symptoms and was seen in the [facility] ED. She was thought to have reactivation [...] 08/19. Followed by Dr. López[facility] in OBGYN ??? Family history of rheumatoid arthritis 09/04/2015 Mother, pt with chronic back pain. Told arthritis in spine in teen yrs. ??? Type 2 diabetes mellitus (HCC-CMS) 09/03/2015 Dx approx age 25. Controlled with lifestyle behaviors, wt loss. Had taken lantus in past 80u, Followed by endocrine in [facility]. Stopped few yrs ago until this past month. ??? Anxiety and depression 05/12/2010 Onset teen yrs. Treated with citalopram in approx 2012 - had SI, treated at [place]. Marijuana prn to help with stress/anxiety sx. [...] of further medications. Upon departure from [facility], the patient's pain was 8 on a zero to ten scale. Any further pain treatment will be at the discretion of the provider following up with the patient based on their clinical assessment . Condition at departure from the [facility] : Stable MDM 09/06/2018 11:31 * Valencia Davila RN - 09/06/2018 0906 EDT Verified name and Patient reports 3 weeks ago she had shingles in her left eye and was treated by an Eye MD in [facility], she has completed her treatment, all symptoms [...] 09/06/2018 documented in this encounter Care Teams Account Support Specialist Relationship Specialty Start Date End Date Benita Shafer NP PCP - General 08/22/18 06/17/19 documented as of this encounter
--- OUTSIDE RECORDS SUMMARY | 2024-05-31 00:48 | XMS_ITS | Encounter Summary ---
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 Type 2 diabetes mellitus without complication, with long-term current use of insulin ([facility]) Abnormal human chorionic gonadotropin (hCG) Charu Flynn MD Phone: tel: fax: [facility] Obstetrics & Midwifery - [address] [address] Phone: tel: fax: Referral ID Status Reason Start Date Expiration Date V isits Requested Visits Authorized [id number] Closed Specialty Services Required 10/26/2018 1 1 Question Answer Reason for Request: Prepregnancy consultation, Type 2 Diabetes, Recurrent loss x6, 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 Charu Flynn MD Phone: tel:[phone] fax:[phone] [facility] [address] [address] Phone: tel: fax: Referral ID Status Reason Start Date Expiration Date Visits Requested Visits Authorized [id number] Specialty Report Received Specialty Services Required 10/26/2018 [...] Info) Description 10/26/2018 11:00 EDT Nurse Only [facility] [place] [address] Unknown, Provider, Nurse, Obgyn Injections 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 She will go tothe lab now [...] per orders from Dr. Flynn and Dr. Moya/rupa nonviable, likely interstitial with plateauing HCG levels. Patient Education Topic: Methotrexate - discussed methotrexate protocol per information sheet; provided with education sheet on methotrexate. Provided with information sheet on group session for loss, as well as lab hours and COIN DEALER triage phone number. 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 Comment: Reference Range: Negative = <5 Indeterminate = 5-25 recommend repeat in 48 hours. Positive = >25 The results of this assay can be falsely lowered due to the consumption of Biotin. Blood specimen (specimen) BLOOD SPECIMEN / Unknown 10/29/2018 9:20 EDT 10/29/2018 9:38 EDT us Charu Flynn MD CHEMISTRY & BLOOD GAS OR DERABLES Final Result [facility] [address] [place] [address] * COMPLETE BLOOD COUNT (10/26/2018 12:28 EDT) Pathologist [facility] WBC 11.89 4.0 - 12.4 K/cmm 10/26/2018 13:06 [facility] RBC 4.82 3.86 - 5.04 M/cmm 10/26/2018 13:06 [facility] Hemoglobin 15.0 11.6 - 15.2 gm/dl 10/26/2018 13:06 [facility] HCT 42.5 34.9 - 44.4 % 10/26/2018 13:06 [facility] MCV 88 81 - 98 fl 10/26/2018 13:06 [facility] MCH 31.1 26.7 - 33.3 pg 10/26/2018 13:06 [facility] MCHC 35.3 32.1 - 35.9 gm/dl 10/26/2018 13:06 [facility] RDW-CV 11.9 <14.7 % 10/26/2018 13:06 [facility] RDW-SD 38.2 <50.4 fl 10/26/2018 13:06 [facility] PLT 358 141 - 377 K/cmm 10/26/2018 13:06 [facility] MPV 10.0 9.5 - 12.7 fl 10/26/2018 13:06 EDT [facility] Blood specimen (specimen) BLOOD SPECIMEN / Unknown 10/26/2018 12:28 EDT 10/26/2018 12:42 EDT Charu Flynn MD HEMATOLOGY & PF4 ORDERAB LES Final Result Performing Organization Address [facility]/ZIP Co de Phone Number [facility] [address] [place] [address] * (ABNORMAL) AST (10/26/2018 12:28 EDT) AST 14(L) 15 - 46 U/L 10/26/2018 13:09 EDT [facility] Blood specimen (specimen) BLOOD SPECIMEN / Unknown 10/26/2018 12:28 EDT 10/26/2018 12:42 EDT us Charu Flynn MD CHEMISTRY & BLOOD GAS OR DERABLES Final Result Performing Organization Address [facility]/ZIP Co de Phone Number [facility] [address] [place] [address] * ALT (10/26/2018 12:28 EDT) ALT 22 <53 U/L 10/26/2018 13:09 EDT [facility] Blood specimen (specimen) BLOOD SPECIMEN / Unknown 10/26/2018 12:28 EDT 10/26/2018 12:42 EDT us Charu Flynn MD CHEMISTRY & BLOOD GAS OR DERABLES Final Result Performing Organization Address [facility] Co de Phone Number [facility] [address] [place] [address] * (ABNORMAL) CREATININE (10/26/2018 12:28 EDT) Creatinine 0.44(L) 0.52 - 1.04 mg/dl 10/26/2018 13:09 EDT [facility] GFR, Calculated 133 >60 ml/min/1.7 3m2 10/26/2018 13:09 EDT [facility] Comment: eGFR calculated using CKD-EPI equation for non Americans. Multiply eGFR by 1.16 for Americans. Blood specimen (specimen) BLOOD SPECIMEN / Unknown 10/26/2018 12:28 EDT 10/26/2018 12:42 EDT Charu Flynn MD CHEMISTRY & BLOOD GAS OR DERABLES Final Result Performing Organization Address City/[facility]/ZIP Co de Phone Number [facility] [address] [place] [address] * BUN (10/26/2018 12:28 EDT) BUN 11 10 - 26 mg/dl 10/26/2018 13:09 EDT [facility] Blood specimen (specimen) BLOOD SPECIMEN / Unknown 10/26/2018 12:28 EDT 10/26/2018 12:42 EDT Charu Flynn MD CHEMISTRY & BLOOD GAS OR DERABLES Final Result Performing Organization Address City/[facility] Co de Phone Number [facility] [address] [place] [address] documented in this encounter Visit Diagnoses Diagnosis 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
--- OUTSIDE RECORDS SUMMARY | 2024-05-31 00:48 | XMS_ITS | Encounter Summary ---
Author Organization [facility] Address [address] [place] [address] Care Team Providers Care After School Driver Name Role Phone Benita Shafer [employer] Primary Care Provider [phone] Reason for Visit * Reason Onset Date Comments Results 11/19/2018 Encounter Details Date Type Department Care Team (Late st Contact Info) Description 11/19/2018 Telephone [facility] [address] [place], [place] [phone] Jackie Almeida MD Results Social History Tobacco [...] Encounter - Jackie Almeida MD - 11/19/2018 0985 EDT Telephone Note: Called patient to discuss [...] 11/19/2018 9:33 PGY-1 Obstetrics and Gynecology Pager #[phone] documented in this encounter Plan of Treatment Not on file documented as of this encounter Visit Diagnoses Not on filedocumented in this encounter Care Teams After School Driver Relationship Specialty Start Date End Date Benita Shafer NP PCP - General 08/22/18 06/17/19 documented as of this encounter
--- OUTSIDE RECORDS SUMMARY | 2024-05-31 00:48 | XMS_ITS | Encounter Summary ---
Author Organization [facility] Address [address] [place] [address] Care Team Providers Care Project Manager Senior Name Role Phone Benita Shafer NP Primary Care Provider [phone] Reason for Visit * Reason Comments Diabetes * Consult (3 - 10 Business Days) - Specialty Report Received Specialty Diagnoses / Procedures Referred By Kit goode Referred To Contact Endocrinology Diagnoses Poorly controlled type 2 diabetes mellitus ([facility]) Recurrent loss Jonas Ojeda MD Phone: tel: fax: [facility] Endocrinology - [address] [address] Phone: tel: fax: Referral ID Status Reason Start Date Expiration Date Visits Requested Visits Authorized [id number] Specialty Report Received Specialty Services Required 11/03/2018 1 1 Encounter Details Date Type Department Care Team (Latest Contact Info) Description 11/10/2018 9:20 EDT Office Visit [facility] Endocrinology - [facility] [address] [place] [address] Sara Zafar NP [address] [place] [address] [address] [place] [address] Type 2 diabetes mellitus with hyperglycemia, with long-term current use of insulin ([facility]) (Primary Dx) Social History Tobacco [...] 4.02) 11/10/2018921 EDT Body Mass Index 36.2 11/10/2018 09 EDT documented in this encounter Functional Status [...] calL with med adjustments RD referral in [place] [facility] food records BS pre meal 80-120 and 2 hr post <160 non 60-90 pre meal and under 120 Increase your Lantus to 15 units and Novolog 6-10 Units with meals F/U in 10 weeks documented in this encounter Progress Notes * Sara Zafar Np - 11/10/2018 3071 EDT Subjective: Patient ID: Cristy Luo is [...] trimester miscarriages, most recently terminated a at [facility] 11/01/2018. Recurrent loss attributed to to poorly controlled type 2 diabetes in conjunction with tobacco dependence. She saw [facility] on 11/03/2018, and was advised to get [...] her PCPs office (Benita Shafer NP - [place]) approximately 1 to 2 months ago . [...] less diarrhea during day. Meter download: FBS 4/7 days average 290 Also test 1/2 hr [...] 4 siblings, knows about 2, noDM. 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 Very [...] not cover this medication. There is an rmbq-pij-wxayhor cream or an rwsl-aro-nwiyrwr patch with a lower concentration that is [...] to work closely with anRD either at [facility] or here to learn [facility] ect, [...] requirements I will calL with med [facility] RD referral in [place] [facility] records BS pre meal 80-120 [...] current use of insulin ([facility])- Primary documented in this encounter Care Teams Project Manager Senior Relationship Specialty Start Date End Date Benita Shafer NP PCP - General 08/22/18 06/17/19 documented as of this encounter
--- OUTSIDE RECORDS SUMMARY | 2024-05-31 00:48 | XMS_ITS | Encounter Summary ---
Author Organization [facility] Address [address] [place] [address] Care Team Providers Care Consumer Loan Officer Name Role Phone Benita Shafer NP Primary Care Provider Encounter Details Date Type Department Care Team (Late st Contact Info) Description 10/26/2018 Orders Only [facility] OBGYN Services - [facility] [address] [place], [place] [phone] Charu Flynn MD [address] [facility], [address] [place] [address] Social History Tobacco Use Types [...] filedocumented in this encounter Care Teams Consumer Loan Officer Relationship Specialty Start Date End Date Benita Shafer NP PCP - General 08/22/18 06/17/19 documented as of this encounter
--- OUTSIDE RECORDS SUMMARY | 2024-05-31 00:48 | XMS_ITS | Encounter Summary ---
Author Organization [facility] Address [address] [place] [address] Care Team Providers Care Statistical Machine Mechanic Name Role Phone None, Provider Primary Care Provider Unavailabl e Reason for Visit * Reason Comments Threatened Miscarriage 6 weeks , started with brown discharge Cher, saw OB said it could be normal spotting. Tonight started with bright red vaginal bleeding. Problem Encounter Details Date Type Department Care Team (Late st Contact Info) Description 02/24/2017 22:50 EDT - 02/25/2017 3:35 EDT Emergency [facility] Emergency Department - Main [place] [address] [place] [address] Kylah Whitaker PA-C [address] [place] [address], [address] [place] [address] Emergency, MD Ekaterina Vaginal bleeding [...] ??F) 02/24/2017 2255 EDT Respiratory Rate 20 02/25/2017306 EDT Oxygen Saturation 99% 02/25/2017 030 EDT Inhaled Oxygen Concentration - - Weight [...] be sent through Care Everywhere. * MISCARRIAGE (NIUEAN) * VAGINAL BLEEDING (NIUEAN) documented in this encounter Medications at Time of Discharge metFORMIN (GLUCOPHAGE) 500 mg tablet Take 1,000 mg by mouth daily. 11/26/2019 VIT 91/IRON/FOLIC/DHA ( + DHA ORAL) Take by mouth. 06/18/2019 documented as of this encounter Discharge Disposition [...] vaginal bleeding. ??? Problem HPI HPI Comments: I, Audie Aguirre, am scribing for Kylah Whitaker PA while [...] suprapubic, and RLQ). Genitourinary: Genitourinary Comments: Female machine greaser was present Multiple clots in the vaginal [...] added GLUCOSE, SERUM Final Number for problems [id number] (ED) Final Relevant Data Procedures ED COURSE [...] of 1604. (02:35) Discussed the patient with FINANCIAL AID MANAGER. (03:07) Reevaluation. Patient endorsed continued pain but [...] be added GLUCOSE, SERUM 02/25/2017 2:40 EDT [facility] Number for problems [id number] (ED) 02/25/2017 2:40 EDT [facility] TOPOGRAPHY UNKNOWN / Unknown 02/25/2017 2:45 EDT 02/25/2017 2:46 EDT us Kylah Whitaker PA-C HEMATOLOGY & PF4 ORDERABLES Penny l Result [facility] [address] [place] [address] * RAD US PELVIS TRANSABDOMINAL AND TRANSVAGINAL (02/25/2017 1:42 EDT) Anatomical Region Laterality Modality Other 02/25/2017 1:42 EDT 02/25/2017 9:29 EDT Narrative 02/25/2017 9:29 EDT RAD US PELVIS TRANSABDOMINAL AND TRANSVAGINAL ??02/25/2017 1:42 AM Clinical History/Comments: vaginal bleeding Comparison: Per patient, ultrasound examination was obtained February 22, 2017 at her perianesthesia rn's office. This is not available for review. [...] The ovaries were not identified. Dr. Severino Cpoe discussed these findings with KYLAH DAWSON at 02/25/2017 2:03 AM. I have personally reviewed the images and the above interpretation and agree with the findings. Procedure Note Pelon Thayer MD - 02/25/2017 RAD US PELVIS TRANSABDOMINAL AND TRANSVAGINAL 02/25/2017 1:42 AM Clinical History/Comments: vaginal bleeding Comparison: Per patient, ultrasound examination was obtained February 22, 2017 at her perianesthesia rn's office. This is not available for review. [...] above interpretation and agree with the findings. us Kylah Whitaker PA-C IMG US ORDERABLES Final Result * (ABNORMAL) GLUCOSE, SERUM (02/25/2017 0:52 EDT) Glucose, Serum 280(H) 70 - 100 mg/dl 02/25/2017 3:22 EDT [facility] BLOOD SPECIMEN / Unknown 02/25/2017 0:52 EDT 02/25/2017 1:11 EDT us Kylah Whitaker PA-C CHEMISTRY & BLOOD GAS ORDERABLES Final Result Performing Organization Address City/State/[facility] Co de Phone Number [facility] [address] [place] [address] * (ABNORMAL) HEMAGRAM AND DIFFERENTIAL (02/25/2017 0:52 EDT) WBC 18.10(H) 4.0 - 12.4 K/cmm 02/25/2017 1:16 [facility] RBC 4.45 3.86 - 5.04 M/cmm 02/25/2017 1:16 [facility] Hemoglobin 13.9 11.6 - 15.2 gm/dl 02/25/2017 1:16 [facility] HCT 38.1 34.9 - 44.4 % 02/25/2017 1:16 [facility] MCV 86 81 - 98 fl 02/25/2017 1:16 [facility] MCH 31.2 26.7 - 33.3 pg 02/25/2017 1:16 [facility] MCHC 36.5(H) 32.1 - 35.9 gm/dl 02/25/2017 1:16 [facility] RDW-CV 11.9 <14.7 % 02/25/2017 1:16 [facility] RDW-SD 37.2 <50.4 fl 02/25/2017 1:16 [facility] PLT 341 141 - 377 K/cmm 02/25/2017 1:16 [facility] MPV 9.4(L) 9.5 - 12.7 fl 02/25/2017 1:16 [facility] Neutrophils 62.0 % 02/25/2017 1:38 [facility] Lymphocytes 29.0 % 02/25/2017 1:38 [facility] Monocytes 6.0 % 02/25/2017 1:38 [facility] Eosinophils 3.0 % 02/25/2017 1:38 [facility] ABS Neutrophils 11.22(H) 2.20 - 8.85 K/cmm 02/25/2017 1:38 [facility] ABS Lymphs 5.25(H) 1.09 - 3.30 K/cmm 02/25/2017 1:38 [facility] ABS Monocytes 1.09(H) 0.1 - 0.8 K/cmm 02/25/2017 1:38 [facility] ABS Eosinophils 0.54 0.03 - 0.61 K/cmm 02/25/2017 1:38 [facility] Type of Diff: Manual 02/25/2017 1:38 [facility] Blood specimen (specimen) BLOOD SPECIMEN / Unknown 02/25/2017 0:52 EDT 02/25/2017 1:11 EDT Kylah Whitaker PA-C PACKAGES & DNA PROBE ORDERABLES Final Result [facility] [address] [place] [address] * (ABNORMAL) HCG FOR (02/25/2017 0:52 EDT) Quant Beta HCG, Preg 1,604(H) <5 mIU/ml 02/25/2017 2:06 [facility] Comment: Reference Range: Negative = <5 Indeterminate = 5-25 recommend repeat in 48 hours. Positive = >25 Blood specimen (specimen) BLOOD SPECIMEN / Unknown 02/25/2017 0:52 EDT 02/25/2017 1:11 EDT Kylah Whitaker PA-C CHEMISTRY & BLOOD GAS ORDERABLES Final Result [facility] [address] [place] [address] documented in this encounter Visit Diagnoses Diagnosis [...] may reflect changes made after this encounter. VIT 91/IRON/FOLIC/DHA ( + DHA ORAL) Take by mouth. 06/18/2019 metFORMIN (GLUCOPHAGE) 500 mg tablet Take [...] RN) documented in this encounter Care Teams Statistical Machine Mechanic Relationship Specialty Start Date End Date None, Provider PCP - General 03/08/16 08/21/18 documented as of this encounter
--- OUTSIDE RECORDS SUMMARY | 2024-05-31 00:48 | XMS_ITS | Encounter Summary ---
Author Organization [facility] Address [address] [place] [address] Care Team Providers Care Inspector Paper Products Name Role Phone Benita Shafer GUSTAVO Primary Care Provider [phone] Reason for Referral * Consult (Routine) - Closed Specialty Diagnoses / Procedures Referred By Kit goode Referred To Contact Obstetrics Diagnoses Poorly controlled type 2 diabetes mellitus ([facility]) Tobacco dependence Class II obesity Jonas Ojeda MD Phone: tel: fax: [facility] Obstetrics & Midwifery - [address] [address] Phone: tel: fax: Referral ID Status Reason Start Date Expiration Date V isits Requested Visits Authorized [id number] Closed Specialty Services Required 11/03/2018 1 1 [...] Kit t Referred To Contact Endocrinology Diagnoses Poorly controlled type 2 diabetes mellitus ([facility]) Recurrent loss Jonas Ojeda MD Phone: tel: fax: [facility] Endocrinology - [address] [address] Phone: tel: fax: Referral ID Status Reason Start Date Expiration Date Visits Requested Visits Authorized [id number] Specialty Report Received Specialty Services Required 11/03/2018 [...] ectopic without intrauterine Charu Flynn MD Phone: tel:[phone] fax:[phone] [facility] Reproductive Medicine & Infertility [address] [address] Phone: tel: fax: Referral ID Status Reason Start Date Expiration Date Visits Requested Visits Authorized [id number] Specialty Report Received Specialty Services Required 10/26/2018 1 1 Encounter Details Date Type Department Care Team (Latest Contact Info) Description 11/03/2018 9:00 EDT Office Visit [facility] Reproductive Medicine & Infertility [address] [address] Jonas Ojeda MD [address] [place] [address] [address] Poorly controlled type 2 [...] in this encounter Progress Notes * Jose uGevara MD - 11/03/2018 0900 EDT REPRODUCTIVE ENDOCRINOLOGY [...] from the patient and cross reviewing her [facility] records for accuracy. Of note, the [...] her PCPs office (Benita Shafer, [place] - [place]) approximately 1 to 2 months ago. Patient reports feeling frustrated with her sugar control and would like a more aggressive management plan. She has never seen an manager client service nor has been on an insulin pump, but she isvery interested in pursuing this. Other notable history includes tobacco dependence smoking approximately half a pack to a full pack per day for the last 4 years. She also smokes marijuana 1-2 times daily. Full review of her medical, surgical, medication, allergies, and social history obtained and is accurate and up-to-date in [facility]. OB History Para Term AB Living 7 0 0 0 7 0 SAB TAB Ectopic Multiple Live Births 6 0 1 0 0 # Outcome Date GA Lbr Partha/2nd Weight Sex Delivery Anes PTL Lv 7 Ectopic 10/2018 10w4d ECTOPIC Comments: interstitial diagnosed at [facility]; given MTX 10/26/18 6 SAB 01/2018 6w0d SAB Comments: D&C at [facility] after nonviable on US; had to have repeat D&Bhavna November for retained POCs 5 SAB 06/2017 6w0d SAB Comments: D&C at [facility]; nonviable seen on US; fourth with current 4 SAB 02/2017 6w0d SAB Comments: D&C at [facility]; third with current 3 SAB 08/2015 10w0d SAB Comments: D&C at [facility]; 2nd with current 2 SAB 01/2015 9w0d SAB Comments: D&C at [facility]; first current 1 SAB 2005 6w0d SAB Comments: first ; ex ; twin confirmed by US at [facility]; no medical or surgical tx Patient [...] not cover this medication. There is an kjfe-qou-wmfqekr cream or an atfk-ere-sgindhi patch with a lower concentration that is [...] Hives Communicable Disease: None Review of Systems PAYROLL ACCOUNTING CLERK ROS: negative Lock Plater Review of Systems Objective: BP 118/72 Physical Exam Assessment: 33 y.o. female with recurrent loss most certainly secondary to poorly controlled type 2 diabetes in conjunction with tobacco dependence who presents for consultation. Plan: Cristy was seen today for recurrent miscarriage. Diagnoses and all orders for this visit: Poorly controlled type 2 diabetes mellitus ([facility]) - AMB CONS/FOLLOW UP ENDOCRINOLOGY - AMB [...] MD, PGY5 Fellow Reproductive Endocrinology & Infertility [facility] 11/03/2018 / 9:54 EDIS Attending [...] Routine Poorly controlled type 2 diabetes mellitus ([facility]) Recurrent loss Ordered: 11/03/2018 AMB CONS/FOLLOW UP MATERNAL MEDICINE Outpatient Referral Routine Poorly controlled type 2 diabetes mellitus ([facility]) Tobacco dependence Class II obesity Ordered: 11/03/2018 documented as of this encounter Results * (ABNORMAL) THYROID CASCADE (11/03/2018 10:47 EDT) TSH 0.40(L) 0.47 - 4.68 uIU/ml 11/03/2018 12:19 EDT [facility] Comment: TSH cascade is not recommended for patients in which pituitary or hypothalamic disorders are suspected. The results of this assay can be falsely lowered due to the consumption of Biotin. Blood specimen (specimen) BLOOD SPECIMEN / Unknown 11/03/2018 10:47 EDT 11/03/2018 11:17 EDT Jonas Ojeda MD CHEMISTRY & BLOOD GAS ORDERA BLES Final Result Performing Organization Address [facility] Co de Phone Number [facility] [address] [place] [address] * PROLACTIN (11/03/2018 10:47 EDT) Prolactin 5.4 ng/ml 11/03/2018 13:09 EDT [facility] Comment: Non-: 2.8-29.2 : 9.7-208.5 Post Menopausal: 1.8-20.3 Blood specimen (specimen) BLOOD SPECIMEN / Unknown 11/03/2018 10:47 EDT 11/03/2018 11:17 EDT Jonas Ojeda MD CHEMISTRY & BLOOD GAS ORDERA BLES Final Result Performing Organization Address [facility] de Phone Number [facility] [address] [place] [address] * HEMOGLOBIN A1C (11/03/2018 10:47 EDT) Hemoglobin A1C 10.9 % 11/03/2018 15:29 EDT [facility] Comment: Reference Range: <5.7% Normal 5.7-6.4% Prediabetes =>6.5% Diagnostic for diabetes (if confirmed) Goals for glycemic control in diabetes ADA 2017 For non adults with diabetes: ?? Target <7.0% For children and adolescents with type 1 diabetes: ?? Target <7.5% More or less stringent targets may be appropriate for individual patients. Est Avg Glucose 266 mg/dl 9 15:29 EDT [facility] Comment: eAG represents the A1c result expressed as average glucose in mg/dl. Blood specimen (specimen) BLOOD SPECIMEN / Unknown 11/03/2018 10:47 EDT 11/03/2018 11:17 EDT us Jonas Ojeda MD CHEMISTRY & BLOOD GAS ORDERA BLES Final Result [facility] [address] [place] [address] documented in this encounter Visit Diagnoses Diagnosis Poorly controlled type 2 diabetes mellitus ([facility] Primary Type II or unspecified type diabetes mellitus without mention of complication, not stated as uncontrolled Recurrent loss Tobacco dependence Tobacco use disorder Class II obesity documented in this encounter Care Teams Inspector Paper Products Relationship Specialty Start Date End Date Benita Shafer NP PCP - General 08/22/18 06/17/19 documented as of this encounter
--- OUTSIDE RECORDS SUMMARY | 2024-05-31 00:48 | XMS_ITS | Encounter Summary ---
Author Organization [facility] Address [address] [place] [address] Care Team Providers Care Manager Developmental Name Role Phone Benita Shafer SLATE ROOFER Primary Care Provider Reason for Visit * Reason Onset Date Comments Labs Only 11/17/2018 Encounter Details Date Type Department Care Team (Late st Contact Info) Description 11/17/2018 Telephone [facility] OBGYN Services - [address] [address] Jordyn Wolfe, RN Labs Only Social History [...] 18. Patient has not gone to either [facility] lab or [facility] lab. * Telephone Encounter - Jordyn [...] PM. Patient plans to go to the [facility] lab tomorrow morning around 9 AM. [...] filedocumented in this encounter Care Teams Manager Developmental Relationship Specialty Start Date End Date Benita Shafer NP PCP - General 08/22/18 06/17/19 documented as of this encounter
--- OUTSIDE RECORDS SUMMARY | 2024-05-31 00:48 | XMS_ITS | Encounter Summary ---
Author Organization [facility] Address [address] [place] [address] Care Team Providers Care Cat Tender Name Role Phone Benita Shafer GUSTAVO Primary Care Provider [phone] Encounter Details Date Type Department Care Team (Late st Contact Info) Description 10/29/2018 9:12 EDT - 10/29/2018 23:59 EDT Hospital Encounter [facility] [address] [place] [address] Charu Flynn MD [address] [facility], [address] [place] [address] Discharge Disposition: Home or Self [...] Testing QID. 100 Each 2 10/19/2018 0 folic acid (FOLVITE) 1 mg tablet Take 3 Tabs by mouth daily. Through first trimester 150 Tab 10/19/2018 0 insulin aspart U-100 (NOVOLOG FLEXPEN) [...] Take 1,000 mg by mouth daily. 0 VIT 91/IRON/FOLIC/DH A ( + DHA ORAL) Take by mouth. 0 UNKNOWN TO PATIENTIndicatio ns: control Take by mouth. 09/05 0 documented as of this encounter Discharge Disposition Disposition Code Departure Means Destination Home or Self Senior Living documented in this encounter Plan of Treatment Not on file documented as of this encounter Visit Diagnoses Not on filedocumented in this encounter Care Teams Cat Tender Relationship Specialty Start Date End Date Benita Shafer NP PCP - General 08/22/18 06/17/19 documented as of this encounter
--- OUTSIDE RECORDS SUMMARY | 2024-05-31 00:48 | XMS_ITS | Encounter Summary ---
Author Organization [facility] Address [address] [place] [address] Care Team Providers Care Ferris Wheel Attendant Name Role Phone Benita Shafer GUSTAVO Primary Care Provider [phone] Encounter Details Date Type Department Care Team (Late st Contact Info) Description 10/24/2018 14:34 EDT - 10/24/2018 23:59 EDT Hospital Encounter [facility] [address] [place] [address] Ana Coronado MD [address] [facility], [address] [place] [address] Discharge Disposition: Auto Discharge Social [...] skin at bedtime. 0 lancets One Touch DelPlaceBlogger or other brand compatible with lancing device [...] on filedocumented in this encounter Care Teams Ferris Wheel Attendant Relationship Specialty Start Date End Date Benita Shafer NP PCP - General 08/22/18 06/17/19 documented as of this encounter
--- OUTSIDE RECORDS SUMMARY | 2024-05-31 00:48 | XMS_ITS | Encounter Summary ---
Author Organization [facility] Address [address] [place] [address] Care Team Providers Care Refractive Surgeon Name Role Phone Benita Shafer GUSTAVO Primary Care Provider [phone] Reason for Visit * Reason Onset Date Comments Labs Only 11/01/2018 Encounter Details Date Type Department Care Team (Late st Contact Info) Description 11/01/2018 Telephone [facility] OBGYN Services - [facility] [address] [place], [place] [id number] Charu Flynn MD [address] [facility], [address] [place] [address] Labs Only Social History Tobacco [...] RN - 11/01/2018 1606 EDT Spoke with [facility] lab BHCG today = 1652.8. Cristy ANDERSON: [...] to go to ER, can go to [facility] or [facility]. Spoke with Cristy: she denies SOB, but reports arm hurts when she coughs or moves, does not think her arm is swollen, reports had mild intermittent 4/10 cramping over weekend, no VB. Advised as HCG dropped appropriately will not need another MTX. She will proceed to [facility] ER. Spoke with ER triage: gave summary & Cristy ETA 5:30-6pm. * Telephone Encounter - Susana Tomlinson RN - 11/01/2018 1415 EDT Spoke with Radha @ [facility] lab, she could see [facility] lab orders [...] CBC (if needed) cannot be run from [facility]. RTCB to [phone] with quant HCG results. * Telephone Encounter - Miley Wolff - 11/01/2018 1400 EDT Radha from the outpatient lab at [facility] has some questions about the labwork for this patient. documented in this encounter Plan of Treatment Not on file documented as of this encounter Procedures Procedure Name Priority Date/Time Associated Diagnosis Comments QUANT BETA HCG, Routine 11/01/2018 11:09 EDT documented in this encounter Results * QUANT BETA HCG, (11/01/2018 11:09 EDT) HCG, External 1,652.8 2.39 - 1,500 mIU/mL [facility] Blood specimen (specimen) 11/01/2018 11:09 EDT us Charu Flynn MD CHEMISTRY & BLOOD GAS OR DERABLES Final Result [facility] documented in this encounter Visit Diagnoses Not on filedocumented in this encounter Care Teams Refractive Surgeon Relationship Specialty Start Date End Date Benita Shafer NP PCP - General 08/22/18 06/17/19 documented as of this encounter
--- OUTSIDE RECORDS SUMMARY | 2024-05-31 00:48 | XMS_ITS | Encounter Summary ---
Author Organization [facility] Address [address] [place] [address] Care Team Providers Care Course Developer Name Role Phone DilanBenita tanner GUSTAVO Primary Care Provider [phone] Reason for Referral * Consult (3 - 10 Business Days) - Closed Specialty Diagnoses / Procedures Referred By [facility] t Referred To Contact Community [facility] Team / Obstetrics & Gynecology Diagnoses Ectopic , unspecified location, unspecified whether intrauterine present History of recurrent miscarriages Charu Flynn MD Phone: tel: fax: [facility] OBGYN Services - [address] [address] Phone: tel: fax: Referral ID Status Reason Start Date Expiration Date V isits Requested Visits Authorized [id number] Closed Specialty Services Required 11/10/2018 1 1 Question Answer What areas would you like the CHT to focus on? Women's Health Initiative Comments As we discussed in your visit today, someone will be contacting you from the [facility] Health Team to schedule an appointment with you. If you do not hear from the CHT within a week please call the [facility] Health Team at [phone]. Reason for Visit * Reason Onset Date Comments Labs Only 11/10/2018 Encounter Details Date Type Department Care Team (Late st Contact Info) Description 11/10/2018 Telephone [facility] OBGYN Services - [address] [address] Susana Busby, RN Labs Only Social History [...] 0850: Spoke with Cristy, she went to [facility] lab last night but it was too late to get blood drawn, currently at [facility] lab. When asked how she is doing she said physically I'm doing fine, reports bleeding has stopped & denies pain. When asked how she is doing emotionally she said getting better, says it has been a long road. Still has Loss flyer that was previously given to her. O ffered a referral to our & she accepted---> advised will place referral & Sw Kylah or Niru will reach out to her & will TCB to her with HCG results. T referral placed. 11:42: Spoke with Cristy: advised HCG result today =1117, down from 1652 on 11/01, plan is repeatHCG in one week 11/17. Advised will call her next week, when results are available. She prefers to go to [facility] for blood work, but may go to [facility] as is closer. I told her if [facility] registration says they do not have an order tell them to call the lab, as they can see [facility] order. When asked if she [...] miscarriages documented in this encounter Care Teams Course Developer Relationship Specialty Start Date End Date Benita Shafer NP PCP - General 08/22/18 06/17/19 documented as of this encounter
--- OUTSIDE RECORDS SUMMARY | 2024-05-31 00:48 | XMS_ITS | Encounter Summary ---
Author Organization [facility] Address [address] [place] [address] Care Team Providers Care Road Machine Runner Name Role Phone Benita Shafer NP Primary Care Provider [phone] Reason for Visit * Reason Onset Date Comments Problem 10/31/2018 Encounter Details Date Type Department Care Team (Late st Contact Info) Description 10/31/2018 Orders Only [facility] OBGYN Services - [facility] [address] [place] [address] Susana Tomlinson RN 10 weeks gestation of [...] Progress Notes * Susana Tomlinson RN - 10/31/2018 1110 EDT HOLD lav ordered documented in this encounter Plan of Treatment Not on file documented as of this encounter Visit Diagnoses Diagnosis 10 weeks gestation of - Primary state, incidental documented in this encounter Care Teams Road Machine Runner Relationship Specialty Start Date End Date Benita Shafer NP PCP - General 08/22/18 06/17/19 documented as of this encounter
--- OUTSIDE RECORDS SUMMARY | 2024-05-31 00:48 | XMS_ITS | Encounter Summary ---
Author Organization [facility] Address [address] [place] [address] Care Team Providers Care Meat Cutter Apprentice Name Role Phone Benita Shafer GUSTAVO Primary Care Provider [phone] Reason for Visit * Reason Comments Problem Encounter Details Date Type Department Care Team (Late st Contact Info) Description 10/24/2018 13:00 EDT Initial consult [facility] OBGYN Services - [address] [id number] Ana Coronado MD 111 [facility], [address] 4 [place] [address] Complication of in first trimester [...] all of her future care here at [facility]. Is planning to see the maternal- medicine doctors for her . O: CORRECTIONAL COUNSELOR/CASE MANAGER US OB FIRST TRIMESTER TRANSVAGINAL Indication [...] Visualized. Embryo: Not visualized. Impression OB transvaginal [id number] 1. Small gestational sac with a yolk [...] her recurrent loss and preconception counseling with MFM given her diabetes. I would strongly recommend bettercontrol of her glucose as this may be contributing to her recurrent miscarriage which she was told. I spent 30 minutes jvlq-in-coev with the patient of which more than 50% of this time was spent counseling her about above documented issues and discussion. documented in this encounter Plan of Treatment Not on file documented as of this encounter Visit Diagnoses Diagnosis Complication of in first trimester- Primary documented in this encounter Care Teams Meat Cutter Apprentice Relationship Specialty Start Date End Date Benita Shafer NP PCP - General 08/22/18 06/17/19 documented as of this encounter
--- OUTSIDE RECORDS SUMMARY | 2024-05-31 00:48 | XMS_ITS | Encounter Summary ---
Author Organization [facility] Address [address] [place] [address] Care Team Providers Care Cloth Picker Name Role Phone Benita Shafer GUSTAVO Primary Care Provider [phone] Encounter Details Date Type Department Care Team (Late st Contact Info) Description 10/26/2018 8:34 EDT - 10/26/2018 11:35 EDT Hospital Encounter [facility] [address] [place] [address] Ana Coronado MD 111 [facility], [address] 4 [place] [address] Discharge Disposition: Auto Discharge Social [...] skin at bedtime. 0 lancets One Touch [employer] or other brand compatible with lancing device [...] filedocumented in this encounter Care Teams Cloth Picker Relationship Specialty Start Date End Date Benita Shafer NP PCP - General 08/22/18 06/17/19 documented as of this encounter
--- OUTSIDE RECORDS SUMMARY | 2024-05-31 00:48 | XMS_ITS | Encounter Summary ---
Author Organization [facility] Address [address] [place] [address] Care Team Providers Care Tire Builder Heavy Service Name Role Phone Benita Shafer TANBARK PEELER Primary Care Provider [phone] Reason for Visit * Reason Comments Shingles States that she thin ks she is having a shingles flare on face and head, states had outbreak 3 weeks ago in same areas Encounter Details Date Type Department Care Team (Late st Contact Info) Description 08/22/2018 9:08 EDT - 08/22/2018 12:20 EDT Emergency [facility] Emergency Department - [address] [id number] Doris Moreno MD 111 [facility], Level 1 [place] [address] Emergency, MD Ekaterina Trigeminal herpes [...] Type 2 diabetes mellitus without complications-E11.9[ICD-10-CM] Z79.84 half-way (current) use of oral hypoglycemic drugs-Z79.84[ICD-10-CM] Z79.4 half-way (current) use of insulin-Z79.4[ICD-10-CM] F17.210 Nicotine dependence, [...] is very important. Please follow-up with your tractor mechanic as previously scheduled. Please contact your primary [...] be sent through Care Everywhere. * SHINGLES (INDONESIAN) * NEUROPATHIC PAIN (INDONESIAN) documented in this encounter Medications at Time of Discharge gabapentin (NEURONTIN) 100 mg capsule Take 1 [...] PATIENTIndication s: control Take by mouth. 10/01/2019 valACYclovir (VALTREX) 500 mg tablet Take 2 tablets by mouth 3 times daily for 7 days. 42 tablet 08/22/2018 08/29/2018 documented as of this encounter Ordered Prescriptions Prescription Sig Dispense Quantity Refills Last Filled Start Date End Date valACYclovir (VALTREX) 500 mg tablet Take 2 tablets by mouth 3 times daily for 7 days. 42 tablet 08/22/2018 9 gabapentin (NEURONTIN) 100 mg capsule Take 1 capsule by mouth 3 times daily for 7 days. 21 capsule 08/22/2018 9 documented in this encounter Discharge Disposition Disposition Code Departure Means Destination Home or Self Care Walk-out Home documented in this encounter ED Notes * Baldemar Beckham, MARCELO - 08/22/2018 1205 EDT POCT Glucose 234 * Doris Moreno MD, MD - 08/22/2018 1146 EDT This patient received an evaluation and medical screening exam for emergent medical conditions at the [facility] on 08/22/2018 Scribe attestation: This documentation is recorded by Mary Phelan acting as Scribe under the direction and presence of Doris Moreno MD. Dorsi Moreno MD: I personally performed the services [...] Value Status Glucose, Fingerstick 234 (*) Final Pallet Assembler ID [id number] Final POCT GLUCOSE Procedures Procedures ED course/Medical [...] 70 - 100 mg/dl 08/22/2018 12:06 EDT [facility] Pallet Assembler ID [id number] 08/22/2018 12:06 EDT [facility] Comment:[facility] BLOOD SPECIMEN / Unknown 08/22/2018 12:04 EDT 08/22/2018 12:06 EDT us Provider Unknown CHEMISTRY & BLOOD GAS ORDERA BLES Final Result [facility] [address] [place] [address] documented in this encounter Visit Diagnoses Diagnosis Trigeminal herpes zoster- Primary Postherpetic trigeminal neuralgia documented in this encounter Historical Medications * This list may reflect changes made after this encounter. UNKNOWN TO PATIENTIndication s: control Take by mouth. 10/01/2019 insulin aspart [...] 08/22/2018 documented in this encounter Care Teams Tire Builder Heavy Service Relationship Specialty Start Date End Date Benita Shafer NP PCP - General 08/22/18 06/17/19 documented as of this encounter
--- OUTSIDE RECORDS SUMMARY | 2024-05-31 00:48 | XMS_ITS | Encounter Summary ---
Author Organization [facility] Address [address] [place] [address] Care Team Providers Care Marketing Analytics Analyst Name Role Phone Benita Shafer GUSTAVO Primary Care Provider [phone] Reason for Visit * Reason Onset Date Comments Results 10/24/2018 Encounter Details Date Type Department Care Team (Late st Contact Info) Description 10/24/2018 Telephone [facility] OBGYN Services - [address] [id number] Ana Coronado MD 111 [facility], Level [address] [place] [address] Results Social History Tobacco Use [...] - Ana Coronado MD, MD - 10/24/2018 4170 EDT Patient called with hCG level and [...] Preg 1,531(H) <5 mIU/ml 10/26/2018 9:52 EDT [facility] Comment: Reference Range: Negative = <5 Indeterminate = 5-25 recommend repeat in 48 hours. Positive = >25 The results of this assay can be falsely lowered due to the consumption of Biotin. Blood specimen (specimen) BLOOD SPECIMEN / Unknown 10/26/2018 8:48 EDT 10/26/2018 9:00 EDT Ana Coronado MD CHEMISTRY & BLOOD GAS [facility] Final Result [facility] [address] [place] [address] documented in this encounter Visit Diagnoses Diagnosis Complication of in first trimester- Primary documented in this encounter Care Teams Marketing Analytics Analyst Relationship Specialty Start Date End Date Benita Shafer NP PCP - General 08/22/18 06/17/19 documented as of this encounter
--- OUTSIDE RECORDS SUMMARY | 2024-05-31 00:48 | XMS_ITS | Encounter Summary ---
Author Organization [facility] Address [address] [place] [address] Care Team Providers Care Dean Of Boys Name Role Phone Benita Shafer CARDIAC EXERCISE PHYSIOLOGIST Primary Care Provider [phone] Reason for Visit * Reason Onset Date Comments Follow-up 09/06/2018 Encounter Details Date Type Department Care Team (Late st Contact Info) Description 09/06/2018 Telephone [facility] Urgent Care - [address] [address] Valencia Davila RN [address] [address] Follow-up Social History Tobacco Use Types Packs/Day [...] to follow up with her Opthalmologist in [facility], Per Dr Blanco we would like to start patient on eye drops and she will see Opthalmology tomorrow, attempted to reach patient on both numbers listed, left generic voicemail on patientscell, as we had discussed I would be calling her with any further information, requested she returnmy call [facility]. Left message on Opthalmology voicemail Dr Srikanth Cruz, Requesting to ask patient to call this clinic for further instructions if they here from her documented in this encounter Plan of Treatment Not on file documented as of this encounter Visit Diagnoses Not on filedocumented in this encounter Care Teams Dean Of Boys Relationship Specialty Start Date End Date Benita Shafer NP PCP - General 08/22/18 06/17/19 documented as of this encounter
--- OUTSIDE RECORDS SUMMARY | 2024-05-31 00:48 | XMS_ITS | Encounter Summary ---
Author Organization [facility] Address [address] [place] [address] Care Team Providers Care Probe Operator Name Role Phone Benita Shafer HOT WATER HEATER INSTALLER Primary Care Provider [phone] Reason for Visit * Reason Onset Date Comments Labs Only 11/09/2018 Encounter Details Date Type Department Care Team (Late st Contact Info) Description 11/09/2018 Telephone [facility] OBGYN Services - [address] [address] Susana Tomlinson, RN Labs Only Social History [...] VM, left general message: Nurse calling from [facility], calling to check in & see how you are doing, also to remind you to get your blood work done, ok to get it drawn at [facility] to let us know when done & how you are doing. documented in this encounter Plan of Treatment Not on file documented as of this encounter Visit Diagnoses Not on filedocumented in this encounter Care Teams Probe Operator Relationship Specialty Start Date End Date Benita Shafer NP PCP - General 08/22/18 06/17/19 documented as of this encounter
--- OUTSIDE RECORDS SUMMARY | 2024-05-31 00:48 | XMS_ITS | Encounter Summary ---
Author Organization [facility] Address [address] [place] [address] Care Team Providers Care Relations Mgr Name Role Phone Benita Shafer GUSTAVO Primary Care Provider [phone] Encounter Details Date Type Department Care Team (Late st Contact Info) Description 10/24/2018 Phlebotomy Only [address] [address] Manager [employer], Outpatient Complication of in first trimester (Primary [...] Preg 1,286(H) <5 mIU/ml 10/24/2018 15:40 EDT [facility] Comment: Reference Range: Negative = <5 Indeterminate = 5-25 recommend repeat in 48 hours. Positive = >25 The results of this assay can be falsely lowered due to the consumption of Biotin. Blood specimen (specimen) BLOOD SPECIMEN / Unknown 10/24/2018 14:42 EDT 10/24/2018 14:54 EDT us Ana Coronado MD CHEMISTRY & BLOOD GAS CLEMENTE GOLDEN Final Result [facility] [address] [place] [address] documented in this encounter Visit Diagnoses Diagnosis Complication of in first trimester- Primary documented in this encounter Care Teams Relations Mgr Relationship Specialty Start Date End Date Benita Shafer NP PCP - General 08/22/18 06/17/19 documented as of this encounter
--- OUTSIDE RECORDS SUMMARY | 2024-05-31 00:48 | XMS_ITS | Encounter Summary ---
Author Organization [facility] Address [address] [place] [address] Care Team Providers Care Floor Person Name Role Phone Benita Shafer GUSTAVO Primary Care Provider [phone] Reason for Referral * AERIAL HURRICANE HUNTER (Routine) - New Request Specialty Diagnoses / Procedures Referred By Kit goode Referred To Contact Diagnoses Missed menses Procedures DEGREASING SOLUTION RECLAIMER US OB FIRST TRIMESTER TRANSVAGINAL Nohemy Sales MD Phone: tel: fax: Referral ID Status Reason Start Date Expiration Date V isits Requested Visits Authorized [id number] New Request 10/19/2018 1 1 Reason for Visit * Reason Onset Date Comments 10/19/2018 Encounter Details Date Type Department Care Team (Late st Contact Info) Description 10/19/[address] [facility] Obstetrics & Midwifery - [address] [id number] Mary Regalado RN Social History Tobacco Use [...] Filled Start Date End Date blood glucose test strips One Touch Verio IQ or other brand compatible with meter and covered by patient's insurance. Testing QID. 100 Each 2 10/19/2018 0 lancets One Touch Delica or other brand compatible with lancing device and covered by patient's insurance. 100 Each 2 10/19/2018 0 folic acid (FOLVITE) 1 mg tablet Take 3 Tabs by mouth daily. Through first trimester 150 Tab 10/19/2018 0 documented in this encounter Miscellaneous Notes * Telephone Encounter - Mary Regalado RN - 10/19/2018 1019 EDT .Initial Appt Screening Form Best Contact Number: [phone] [facility] Provider: HUGO for Type 2 diabetes [...] h/o 5 miscarriages and traumatic experience with [facility] OB and would like to come [...] scribed to patient'spharmacy. Scheduled for first trimester DEGREASING SOLUTION RECLAIMER US for October 24 at 1:45pm- she [...] Procedure Name Priority Date/Time Associated Diagnosis Comments DEGREASING SOLUTION RECLAIMER US OB FIRST TRIMESTER TRANSVAGINAL Routine 10/24/2018 13:58 EDT Missed menses documented in this encounter Results * DEGREASING SOLUTION RECLAIMER US OB FIRST TRIMESTER TRANSVAGINAL (10/24/2018 13:58 [...] Visualized. Embryo: Not visualized. Impression OB transvaginal [id number] 1. Small gestational sac with a yolk [...] GA 10 w + 4 d Assigned IAVN: 05/18/2019 Assessment Gestational sac: Visualized. Location: Interstitial . Yolk sac: Visualized. Amniotic sac: Visualized. Embryo: Not visualized. Impression OB transvaginal [id number] 1. Small gestational sac with a yolk [...] findings discussed w/patient. DATE OF SERVICE: 10/24/2018 us [address] Sales MD [facility] DEGREASING SOLUTION RECLAIMER ORDERABLES Final Result documented in this encounter Visit Diagnoses Diagnosis Missed menses- Primary Absence of menstruation documented in this encounter Care Teams Floor Person Relationship Specialty Start Date End Date Benita Shafer NP PCP - General 08/22/18 06/17/19 documented as of this encounter
--- OUTSIDE RECORDS SUMMARY | 2024-05-31 00:48 | XMS_ITS | Encounter Summary ---
Author Organization [facility] Address [address] [place] [address] Care Team Providers Care Manganese Wheeler Name Role Phone Benita Shafer CAR DELIVERER Primary Care Provider [phone] Reason for Visit * Reason Onset Date Comments Labs Only 11/07/2018 Encounter Details Date Type Department Care Team (Late st Contact Info) Description 11/07/2018 Telephone [facility] OBGYN Services - [address] [address] Michelle Sanchez, MARCELO Labs Only Social History [...] in tomorrow. Patient given lab hours at [facility]. Lab opens up at 6. [...] Wolfe RN - 11/08/2018 1901 EDT Call [facility] lab. Patient had not gone into the lab as of now which is 1900. * Telephone Encounter - Michelle Sanchez RN - 11/07/2018 0945 EDT TC to Cristy to remind to go to lab for HCG tomorrow (11/08). Pt states she will go to [facility] lab in evening; advised we will [...] following MTX administration. Reiterated bleeding precautions and HEALTH INFORMATION ADMINISTRATOR triage number if pt has questions/concerns. documented in this encounter Plan of Treatment Not on file documented as of this encounter Results * (ABNORMAL) QUANT BETA HCG, (11/10/2018 8:52 EDT) Quant Beta HCG, Preg 1,117(H) <5 mIU/ml 11/10/2018 9:47 EDT [facility] Comment: Reference Range: Negative = <5 Indeterminate = 5-25 recommend repeat in 48 hours. Positive = >25 The results of this assay can be falsely lowered due to the consumption of Biotin. Blood specimen (specimen) BLOOD SPECIMEN / Unknown 11/10/2018 8:52 EDT 11/10/2018 9:00 EDT us Charu Flynn MD CHEMISTRY & BLOOD GAS OR DERABLES Final Result [facility] [address] [place] [address] documented in this encounter Visit Diagnoses Diagnosis Ectopic without intrauterine , unspecified location- Primary documented in this encounter Care Teams Manganese Wheeler Relationship Specialty Start Date End Date Benita Shafer NP PCP - General 08/22/18 06/17/19 documented as of this encounter
--- OUTSIDE RECORDS SUMMARY | 2024-05-31 00:48 | XMS_ITS | Encounter Summary ---
Author Organization [facility] Address [address] [place] [address] Care Team Providers Care Mfg Assoc Name Role Phone Benita Shafer GUSTAVO Primary Care Provider [phone] Encounter Details Date Type Department Care Team (Latest Contact Info) Description 11/03/2018 10:39 EDT - 11/03/2018 23:59 EDT Hospital Encounter [facility] [place] [address] [place] [address] Jonas Ojeda MD [address] [place] [address] [address] Discharge Disposition: Auto Discharge Social [...] Testing QID. 100 Each 2 10/19/2018 0 cyclobenzaprine (FLEXERIL) 5 mg tablet Take 2 Tabs by mouth 3 times daily. 20 Tab 11/01/2018 0 folic acid (FOLVITE) 1 mg tablet [...] patient's insurance. 100 Each 2 10/19/2018 0 lidocaine 5 % (LIDODERM) 5 % patch To area of pain, apply for 12 hours on, then 12 hours off. Some insurance companies do not cover this medication. There is an qepj-nri-jypykqj cream or an hqew-igl-hxrpuso patch with a lower concentration that is available. Please substitute this if your insurance company does not cover this m 30 Patch 11/01/2018 0 metFORMIN (GLUCOPHAGE) 500 mg tablet Take [...] 97 - 169 ng/dl 11/03/2018 14:02 EDT [facility] BLOOD SPECIMEN / Unknown 11/03/2018 10:47 EDT 11/03/2018 11:17 EDT us Jonas Ojeda MD CHEMISTRY & BLOOD GAS ORDERA BLES Final Result Performing Organization Address [facility] Co de Phone Number [facility] [address] [place] [address] * T4, FREE REFLEX (11/03/2018 10:47 EDT) T4, Free Reflex 1.2 0.8 - 2.2 ng/dl 11/03/2018 13:02 EDT [facility] BLOOD SPECIMEN / Unknown 11/03/2018 10:47 EDT 11/03/2018 11:17 EDT us Jonas Ojeda MD CHEMISTRY & BLOOD GAS ORDERA BLES Final Result Performing Organization Address [facility] de Phone Number [facility] [address] [place] [address] documented in this encounter Visit Diagnoses Not on filedocumented in this encounter Care Teams Mfg Assoc Relationship Specialty Start Date End Date Benita Shafer NP PCP - General 08/22/18 06/17/19 documented as of this encounter
--- OUTSIDE RECORDS SUMMARY | 2024-05-31 00:48 | XMS_ITS | Encounter Summary ---
Author Organization [facility] Address [address] [place] [address] Care Team Providers Care Process Laboratory Specialist Name Role Phone Benita Shafer GUSTAVO Primary Care Provider [phone] Encounter Details Date Type Department Care Team (Late st Contact Info) Description 11/10/2018 Phlebotomy Only [address] [address] Informaticist, Outpatient Ectopic without intrauterine , unspecified location [...] Preg 1,117(H) <5 mIU/ml 11/10/2018 9:47 EDT [facility] Comment: Reference Range: Negative = <5 Indeterminate = 5-25 recommend repeat in 48 hours. Positive = >25 The results of this assay can be falsely lowered due to the consumption of Biotin. Blood specimen (specimen) BLOOD SPECIMEN / Unknown 11/10/2018 8:52 EDT 11/10/2018 9:00 EDT us Charu Flynn MD CHEMISTRY & BLOOD GAS OR DERABLES Final Result [facility] [address] [place] [address] documented in this encounter Visit Diagnoses Diagnosis Ectopic without intrauterine , unspecified location- Primary documented in this encounter Care Teams Process Laboratory Specialist Relationship Specialty Start Date End Date Benita Shafer NP PCP - General 08/22/18 06/17/19 documented as of this encounter
--- OUTSIDE RECORDS SUMMARY | 2024-05-31 00:48 | XMS_ITS | Encounter Summary ---
Author Organization [facility] Address [address] [place] [address] Care Team Providers Care Reproductive Endocrinologist Name Role Phone Benita Shafer INSPECTOR FINAL ASSEMBLY ELECTRICAL Primary Care Provider [phone] Encounter Details Date Type Department Care Team (Late st Contact Info) Description 11/01/2018 Orders Only [facility] OBGYN Services - [facility] [address] [place] [address] Lara Serrano RN [address] [place] [address] Right tubal without intrauterine (Primary Dx) Social [...] Primary documented in this encounter Care Teams Reproductive Endocrinologist Relationship Specialty Start Date End Date Benita Shafer NP PCP - General 08/22/18 06/17/19 documented as of this encounter
--- OUTSIDE RECORDS SUMMARY | 2024-05-31 00:48 | XMS_ITS | Encounter Summary ---
Author Organization [facility] Address [address] [place] [address] Care Team Providers Care Fire Protection Engineering Technician Name Role Phone Benita Shafer GUSTAVO Primary Care Provider [phone] Encounter Details Date Type Department Care Team (Late st Contact Info) Description 11/03/2018 Orders Only [facility] OBGYN Services - [facility] [address] [place], [place] [address] Charu Flynn MD [address] [facility], [address] [place] [address] Social History Tobacco Use Types [...] HCG, External 1,652.8 2.39 - 15,000 mIU/mL [facility] Comment:Please see the scann ed report in EPIC for further interpretation. Blood specimen (specimen) 11/01/2018 11:09 EDT us Charu Flynn MD CHEMISTRY & BLOOD GAS OR DERABLES Final Result [facility] documented in this encounter Visit Diagnoses Not on filedocumented in this encounter Care Teams Fire Protection Engineering Technician Relationship Specialty Start Date End Date Benita Shafer NP PCP - General 08/22/18 06/17/19 documented as of this encounter
--- OUTSIDE RECORDS SUMMARY | 2024-05-31 00:48 | XMS_ITS | Encounter Summary ---
Author Organization [facility] Address [address] [place] [address] Care Team Providers Care Tierce Filler Name Role Phone Benita Shafer GUSTAVO Primary Care Provider [phone] Encounter Details Date Type Department Care Team (Late st Contact Info) Description 10/26/2018 11:36 EDT - 10/26/2018 23:59 EDT Hospital Encounter [facility] [address] [place] [address] Charu Flynn MD [address] [facility], [address] [place] [address] Discharge Disposition: Home or Self [...] or Self Jail documented in this encounter Plan of Treatment Not on file documented as of this encounter Visit Diagnoses Not on filedocumented in this encounter Care Teams Tierce Filler Relationship Specialty Start Date End Date Benita Shafer NP PCP - General 08/22/18 06/17/19 documented as of this encounter
--- OUTSIDE RECORDS SUMMARY | 2024-05-31 00:48 | XMS_ITS | Encounter Summary ---
Author Organization [facility] Address [address] [place] [address] Care Team Providers Care General Maintenance Engineer Name Role Phone Benita Shafer GUSTAVO Primary Care Provider [phone] Encounter Details Date Type Department Care Team (Late st Contact Info) Description 11/10/2018 8:38 EDT - 11/10/2018 23:59 EDT Hospital Encounter [facility] [address] [place] [address] Charu Flynn MD [address] [facility], [address] [place] [address] Discharge Disposition: Auto Discharge Social [...] 9:28 EDT documented in this encounter Discharge Diagnoses Diagnosis O00.90 Unspecified [...] not cover this medication. There is an ixwk-qwt-swbttel cream or an lckm-cdp-darrvrx patch with a lower concentration that is [...] filedocumented in this encounter Care Teams General Maintenance Engineer Relationship Specialty Start Date End Date Benita Shafer NP PCP - General 08/22/18 06/17/19 documented as of this encounter
--- OUTSIDE RECORDS SUMMARY | 2024-05-31 00:48 | XMS_ITS | Encounter Summary ---
Author Organization [facility] Address [address] [place] [address] Care Team Providers Care Hydrogeology Professor Name Role Phone Benita Shafer LOTUS NOTES ADMINISTRATOR Primary Care Provider [phone] Reason for Visit * Reason Comments Arm Pain pt to ed c/o right s houlder pain that radiates down to right hand. pt states pain started last while walking. distal CSMT intact. denies trauma. Encounter Details Date Type Department Care Team (Late st Contact Info) Description 11/01/2018 17:45 EDT - 11/01/2018 21:27 EDT Emergency [facility] Emergency Department - Main [place] [address] [place] [address] Kevan Gr MD [address] [place] [address] Emergency, MD Ekaterina Arm pain, diffuse, right [...] Pressure 105/75 11/01/2018 2125 EDT Pulse 121 11/01/20181751 EDT Temperature 36.5 ??C (97.7 ??F) 11/01/20182124 EDT Respiratory Rate 16 11/01/20182124 EDT Oxygen Saturation 100% 11/01/20182124 EDT Inhaled Oxygen Concentration - - Weight 95.3 kg (210 lb) 11/01/20181751 EDT Height 162.6 cm (5' 4) 11/01/20181751 EDT Body Mass Index 36.05 11/01/20181751 EDT documented in this encounter Discharge Diagnoses Diagnosis M79.601 Pain in right arm-M79.601[ICD-10-CM] E11.9 Type 2 diabetes mellitus without complications-E11.9[ICD-10-CM] E66.9 Obesity, unspecified-E66.9[ICD-10-CM] R11.10 Vomiting, unspecified-R11.10[ICD-10-CM] G47.8 Other sleep disorders-G47.8[ICD-10-CM] R05 Cough-R05[ICD-10-CM] R07.89 Other chest pain-R07.89[ICD-10-CM] F17.210 Nicotine dependence, cigarettes, uncomplicated-F17.210[ICD-10-CM] Z79.84 shelter (current) use of oral hypoglycemic drugs-Z79.84[ICD-10-CM] Z79.4 shelter (current) use of insulin-Z79.4[ICD-10-CM] Z88.6 Allergy status [...] not cover this medication. There is an yaiq-vjd-fapbiya cream or an qbov-sqn-ftcxmbi patch with a lower concentration that is [...] not cover this medication. There is an uaxn-sqi-vrtfrvy cream or an vjfe-jkm-tlkjbfo patch with a lower concentration that is available. Please substitute this if your insurance company does not cover this m 30 Patch 11/01/2018 06/18/19 20 cyclobenzaprine (FLEXERIL) 5 mg tablet Take 2 Tabs by mouth 3 times daily. 20 Tab 11/01/2018 06/18/19 20 documented in this encounter Discharge Disposition Disposition Code Departure Means Destination Home or Self Care Car Home documented in this encounter ED Notes * Zelda Leahy RN - 11/01/20182125 EDT Discharge instructions provided to patient. PIV removed. VSS. Pt ambulated out with steady gait, accompanied by her SO * Zelda Leahy RN - 11/01/20181952 EDT Blood drawn via saline lock per protocol, tiger, green and purple tube(s) sent to lab per order. * Kevan Gr MD, MD - 11/01/2018 1909 EDTAssociated Order(s): Nerve Block This patient received an evaluation and medical screening exam for emergent medical conditions at the [facility] on 11/01/2018 Scribe attestation: This documentation [...] to verify the correct patient, procedure, equipment, credit support specialist and site/side marked as required. Indications: pain [...] morphine injection for management of arm pain. 2048: I discussed lab results with the patient [...] 17.33(H) 4.0 - 12.4 K/cmm 11/01/2018 20:22 [facility] RBC 4.63 3.86 - 5.04 M/cmm 11/01/2018 20:22 [facility] Hemoglobin 14.2 11.6 - 15.2 gm/dl 11/01/2018 20:22 [facility] HCT 41.0 34.9 - 44.4 % 11/01/2018 20:22 [facility] MCV 89 81 - 98 fl 11/01/2018 20:22 [facility] MCH 30.7 26.7 - 33.3 pg 11/01/2018 20:22 [facility] MCHC 34.6 32.1 - 35.9 gm/dl 11/01/2018 20:22 [facility] RDW-CV 12.1 <14.7 % 11/01/2018 20:22 [facility] RDW-SD 38.3 <50.4 fl 11/01/2018 20:22 [facility] PLT 351 141 - 377 K/cmm 11/01/2018 20:22 [facility] MPV 9.8 9.5 - 12.7 fl 11/01/2018 20:22 [facility] Neutrophils 59.3 % 11/01/2018 20:49 [facility] Lymphocytes 32.7 % 11/01/2018 20:49 [facility] Monocytes 4.4 % 11/01/2018 20:49 [facility] Eosinophils 2.7 % 11/01/2018 20:49 [facility] % Atyp Lymphs 0.9 % 11/01/2018 20:49 [facility] ABS Neutrophils 10.28(H) 2.20 - 8.85 K/cmm 11/01/2018 20:49 [facility] ABS Lymphs 5.67(H) 1.09 - 3.30 K/[facility] 11/01/2018 20:49 [facility] ABS Monocytes 0.76 0.1 - 0.8 K/[facility] 11/01/2018 20:49 [facility] ABS Eosinophils 0.47 0.03 - 0.61 K/[facility] 11/01/2018 20:49 [facility] ABS Atyp Lymphs 0.16 K/[facility] 9 20:49 [facility] Type of Diff: Manual 11/01/2018 20:49 [facility] Blood specimen (specimen) BLOOD SPECIMEN / Unknown 11/01/2018 19:38 EDT 11/01/2018 19:55 EDT Kevan Gr MD PACKAGES & DNA PROBE ORDERABLES Final Result [facility] [address] [place] [address] * (ABNORMAL) BASIC METABOLIC PANEL (BMP) (11/01/2018 19:38 EDT) Sodium 136 136 - 145 mEq/L 11/01/2018 20:16 [facility] Potassium 4.1 3.5 - 5.0 mEq/L 11/01/2018 20:16 [facility] Chloride 99 96 - 110 mEq/L 11/01/2018 20:16 [facility] CO2 27 22 - 32 mEq/L 11/01/2018 20:16 [facility] BUN 10 10 - 26 mg/dl 11/01/2018 20:16 [facility] Creatinine 0.39(L) 0.52 - 1.04 mg/dl 11/01/2018 20:16 [facility] GFR, Calculated 138 >60 ml/min/1.7 3m2 11/01/2018 20:16 [facility] Comment: eGFR calculated using CKD-EPI equation for non Americans. Multiply eGFR by 1.16 for Americans. Calcium 10.2 8.5 - 10.5 mg/dl 11/01/2018 20:16 EDT [facility] Calculated Calcium 10.2 8.5 - 10.5 mg/dl 11/01/2018 20:16 EDT [facility] Glucose, Serum 225(H) 70 - 100 mg/dl 11/01/2018 20:16 EDT [facility] Fasting? Unknown 11/01/2018 19:56 EDT [facility] Blood specimen (specimen) BLOOD SPECIMEN / Unknown 11/01/2018 19:38 EDT 11/01/2018 19:55 EDT Kevan Gr MD CHEMISTRY & BLOOD GAS ORDERABLES Final Result Performing Organization Address City/[facility]/ZIP Co de Phone Number [facility] [address] [place] [address] * CK (11/01/2018 19:38 EDT) CK 42 30 - 135 U/L 11/01/2018 20:16 EDT [facility] Blood specimen (specimen) BLOOD SPECIMEN / Unknown 11/01/2018 19:38 EDT 11/01/2018 19:55 EDT Kevan Gr MD CHEMISTRY & BLOOD GAS ORDERABLES Final Result Performing Organization Address City/[facility] Co de Phone Number [facility] [address] [place] [address] * Nerve Block (11/01/2018 19:09 EDT) Narrative [facility] EKG - 11/01/2018 19:09 EDT Kevan [...] to verify the correct patient, procedure, equipment, credit support specialist and site/side marked as required. Indications: pain [...] the procedure well with no immediate complications us Kevan Gr MD PROCEDURE/MINOR SURGICAL ORDERAB LES Final Result [facility] EKG documented in this encounter Visit [...] 1 dose, On Tue11/01/18 at 1945, STAT 195 (Given - Provid er: Zelda Leahy RN) documented in this encounter Care Teams Hydrogeology Professor Relationship Specialty Start Date End Date Benita Shafer NP PCP - General 08/22/18 06/17/19 documented as of this encounter
--- OUTSIDE RECORDS SUMMARY | 2024-05-31 00:48 | XMS_ITS | Encounter Summary ---
Author Organization [facility] Address [address] [place] [address] Care Team Providers Care Motion Picture Set Worker Name Role Phone Benita Shafer GUSTAVO Primary Care Provider [phone] Encounter Details Date Type Department Care Team (Late st Contact Info) Description 11/03/2018 Phlebotomy Only [address] [address] Coordinator Integrated Marketing, Outpatient Recurrent loss; 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 [...] Results * HEMOGLOBIN A1C (11/03/2018 10:47 EDT) Pathologist [facility] Hemoglobin A1C 10.9 % 11/03/2018 15:29 EDT [facility] Comment: Reference Range: <5.7% Normal 5.7-6.4% Prediabetes =>6.5% Diagnostic for diabetes (if confirmed) Goals for glycemic control in diabetes ADA 2017 For non adults with diabetes: ?? Target <7.0% For children and adolescents with type 1 diabetes: ?? Target <7.5% More or less stringent targets may be appropriate for individual patients. Est Avg Glucose 266 mg/dl 9 15:29 EDT [facility] Comment: eAG represents the A1c result expressed as average glucose in mg/dl. Blood specimen (specimen) BLOOD SPECIMEN / Unknown 11/03/2018 10:47 EDT 11/03/2018 11:17 EDT us Jonas Ojeda MD CHEMISTRY & BLOOD GAS ORDERA BLES Final Result Performing Organization Address City/[facility]/ZIP Co de Phone Number [facility] [address] [place] [address] * PROLACTIN (11/03/2018 10:47 EDT) Pathologist [facility] Prolactin 5.4 ng/ml 11/03/2018 13:09 EDT [facility] Comment: Non-: 2.8-29.2 : 9.7-208.5 Post Menopausal: 1.8-20.3 Blood specimen (specimen) BLOOD SPECIMEN / Unknown 11/03/2018 10:47 EDT 11/03/2018 11:17 EDT us Jonas Ojeda MD CHEMISTRY & BLOOD GAS ORDERA BLES Final Result [facility] [address] [place] [address] * (ABNORMAL) THYROID CASCADE (11/03/2018 10:47 EDT) [facility] TSH 0.40(L) 0.47 - 4.68 uIU/ml 11/03/2018 12:19 EDT [facility] Comment: TSH cascade is not recommended for patients in which pituitary or hypothalamic disorders are suspected. The results of this assay can be falsely lowered due to the consumption of Biotin. 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
--- OUTSIDE RECORDS SUMMARY | 2024-05-31 00:48 | XMS_ITS | Encounter Summary ---
Author Organization [facility] Address [address] [place] [address] Care Team Providers Care Fingerprinter Name Role Phone Benita Shafer GUSTAVO Primary Care Provider [phone] Encounter Details Date Type Department Care Team (Late st Contact Info) Description 10/26/2018 Phlebotomy Only [address] [address] Planning Rn, Outpatient Complication of in first trimester (Primary [...] <5 mIU/ml 10/26/2018 9:52 EDT [facility] Comment: Reference Range: Negative = <5 Indeterminate = 5-25 recommend repeat in 48 hours. Positive = >25 The results of this assay can be falsely lowered due to the consumption of Biotin. Blood specimen (specimen) BLOOD SPECIMEN / Unknown 10/26/2018 8:48 EDT 10/26/2018 9:00 EDT us Ana Coronado MD CHEMISTRY & BLOOD GAS CLEMENTE GOLDEN Final Result [facility] [address] [place] [address] documented in this encounter Visit Diagnoses Diagnosis Complication of in first trimester- Primary documented in this encounter Care Teams Fingerprinter Relationship Specialty Start Date End Date Benita Shafer NP PCP - General 08/22/18 06/17/19 documented as of this encounter
--- OUTSIDE RECORDS SUMMARY | 2024-05-31 00:48 | XMS_ITS | Encounter Summary ---
Author Organization [facility] Address [address] [place] [address] Care Team Providers Care Outpatient Coder Name Role Phone Benita Shafer BOAT ENGINE MECHANIC Primary Care Provider [phone] Reason for Visit * Reason Comments Sore [...] 8:50 EDT - 11/21/2018 10:09 EDT Emergency [facility] Emergency Department - [address] [address] Josh Coelho, PA-C [address] [facility], [address] [place] [address] Emergency, MD Ekaterina Pharyngitis, unspecified [...] documented in this encounter Discharge Diagnoses Diagnosis J02.9 Acute [...] sent through Care Everywhere. * SORE THROAT (GABONESE) * STREP THROAT (GABONESE) documented in this encounter Medications at Time [...] not cover this medication. There is an touf-rzl-gbbkand cream or an ikat-btx-euzlwvh patch with a lower concentration that is available. Please substitute this if your insurance company does not cover this m 30 Patch 11/01/2018 0 metFORMIN (GLUCOPHAGE) 500 mg tablet Take 1,000 mg by mouth daily. 0 oxyCODONE (ROXICODONE) 5 mg/5 mL solution Take 5 mL by mouth every 4 hours as needed for Pain. Daily Max: 30 mg 75 mL 11/21/2018 0 penicillin v potassium (VEETID) 500 mg tablet Take 1 Tab by mouth 3 times daily for 7 days. 21 Tab 11/21/2018 9 VIT 91/IRON/FOLIC/DH A ( + DHA ORAL) Take by mouth. 0 UNKNOWN TO PATIENTIndicatio ns: control Take by mouth. 09/05 0 documented as of this encounter Ordered Prescriptions Prescription Sig Dispense Quantity Refills Last Filled Start Date End Date oxyCODONE (ROXICODONE) 5 mg/5 mL solution Take [...] GROUP A (STREPTOCOCCUS PYOGENES) 11/22/2018 13:12 EDT [facility] Specimen of unknown material (specimen) ENTIRE THROAT / Unknown 11/21/2018 9:25 EDT 11/21/2018 10:17 EDT Comment:Specimen submitted o n a flocked swab. us Benita Sol MD MICROBIOLOGY - GENERAL ORDERA BLES Final Result [facility] [address] [place] [address] documented in this encounter Visit Diagnoses Diagnosis [...] RN) documented in this encounter Care Teams Outpatient Coder Relationship Specialty Start Date End Date Benita Shafer NP PCP - General 08/22/18 06/17/19 documented as of this encounter
--- OUTSIDE RECORDS SUMMARY | 2024-05-31 00:49 | XMS_ITS | Encounter Summary ---
Author Organization [facility] Address [address] [place] [address] Care Team Providers Care Wound/Ostomy Clinical Nurse Specialist Name Role Phone Nimisha Clifton PROPERTY MANAGER Primary Care Provider [phone] Reason for Visit * Reason Comments New Patient Visit Otalgia pain off and on for years but hurts consistantly since Tuesday Encounter Details Date Type Department Care Team (Late st Contact Info) Description 09/03/2015 11:00 EDT Office Visit [facility] Adult Primary Care - [address] [id number] Nimisha Clifton, GUSTAVO [address] [phone] Type 2 diabetes mellitus without complication (CMS-HCC) [...] over the past years. Originally from the [facility]. Presently lives [facility] with her boyfriend/significant other and his 4-year-old [...] citalopram and develop suicidal ideation-she went to [place] for a short stay for withdrawal from [...] years until this past month when her RETAIL EVENT COORDINATOR placed her back on it in early [...] unknown. She follows with Dr. López/affiliates in [employer]ORD[employer]ATOR for her RETAIL EVENT COORDINATOR care. She had a D&C done earlier [...] Hemoglobin A1c; Future Tachycardia Orders: - Thyroid [place]; Future Depression, unspecified depression type Orders: - Thyroid [place]; Future Other orders - insulin glargine (LANTUS [...] 0.55 - 4.78 uIU/ml 09/03/2015 18:19 EDT [facility] Comment: TSH cascade is not recommended for patients in which pituitary or hypothalamic disorders are suspected. Blood specimen (specimen) BLOOD SPECIMEN / Unknown 09/03/2015 12:33 EDT 09/03/2015 13:37 EDT us Nimisha Clifton PROPERTY MANAGER CHEMISTRY & BLOOD GAS ORD ERABLES Final Result [facility] [address] [place] [address] * HEMOGLOBIN A1C (09/03/2015 12:33 EDT) Hemoglobin A1C 8.8 % 09/03/2015 14:56 EDT [facility] Comment: Reference Range: <5.7% Normal 5.7-6.4% Increased risk for diabetes =>6.5% Diagnostic for diabetes (if confirmed) The A1c goal for non adults in general is <7%. The A1c goal for selected patients may be significantly lower than 7% if this can be achieved without significant hypoglycemia or other adverse effects of treatment. Est Avg Glucose 206 mg/dl 6 14:56 [facility] Comment: eAG represents the A1c result expressed as average glucose in mg/dl. Blood specimen (specimen) BLOOD SPECIMEN / Unknown 09/03/2015 12:33 EDT 09/03/2015 13:37 EDT us Nimisha Clifton NP CHEMISTRY & BLOOD GAS ORD ERABLES Final Result [facility] [address] [place] [address] * (ABNORMAL) COMPREHENSIVE METABOLIC PANEL (CMP) (09/03/2015 12:33 EDT) Potassium 4.1 3.5 - 5.0 mEq/L 09/03/2015 14:15 [facility] Sodium 141 136 - 145 mEq/L 09/03/2015 14:15 [facility] Chloride 101 96 - 110 mEq/L 09/03/2015 14:15 [facility] CO2 29 24 - 32 mEq/L 09/03/2015 14:15 [facility] Total Alkaline Phosphatase 84 38 - 126 U/L 09/03/2015 14:15 [facility] Bilirubin, Total <0.5 <1.4 mg/dl 09/03/19 16 14:15 [facility] AST 19 15 - 46 U/L 09/03/2015 14:15 [facility] ALT 33 <53 U/L 09/03/2015 14:15 [facility] Albumin 3.9 3.4 - 4.9 g/dl 09/03/2015 14:15 [facility] Total Protein 6.6 6.3 - 8.2 g/dl 09/03/2015 14:15 [facility] Creatinine 0.48(L) 0.52 - 1.04 mg/dl 09/03/2015 14:15 [facility] GFR, Calculated 132 >60 ml/min/1.7 3m2 09/03/2015 14:15 [facility] Comment: eGFR calculated using CKD-EPI equation for non Americans. Multiply eGFR by 1.16 for Americans. BUN 11 10 - 26 mg/dl 09/03/2015 14:15 [facility] Calcium 9.8 8.5 - 10.5 mg/dl 09/03/2015 14:15 [facility] Calculated Calcium 10.3 8.5 - 10.5 mg/dl 09/03/2015 14:15 [facility] Glucose, Serum 205(H) 70 - 100 mg/dl 09/03/2015 14:15 [facility] Fasting? No 09/03/2015 12:23 [facility] Blood specimen (specimen) BLOOD SPECIMEN / Unknown 09/03/2015 12:33 EDT 09/03/2015 13:37 EDT Nimisha Clifton NP CHEMISTRY & BLOOD GAS ORD ERABLES Final Result [facility] [address] [place] [address] documented in this encounter Visit Diagnoses Diagnosis Type 2 diabetes mellitus without complication ([facility])- Primary Type II or unspecified type diabetes mellitus without mention of complication, not stated as uncontrolled Tachycardia Tachycardia, unspecified Depression, unspecified depression type Anxiety and depression Dysthymic disorder documented in this encounter Historical Medications * This list may reflect changes made after this encounter. ferrous sulfate 324 mg (65 mg iron) tablet,delayed release (DR/EC) Take 324 mg by mouth daily with breakfast. 03/08/2016 insulin glargine (LANTUS SOLOSTAR) 100 unit/mL (3 mL) injection pen Inject into the skin at bedtime. 03/08/2016 added in this encounter Care Teams Wound/Ostomy Clinical Nurse Specialist Relationship Specialty Start Date End Date Nimisha Clifton NP 1 [facility] [address] [place] [phone] PCP - General 08/28/15 03/07/16 documented as of this encounter
--- OUTSIDE RECORDS SUMMARY | 2024-05-31 00:49 | XMS_ITS | Encounter Summary ---
Author Organization [facility] Address [address] [place] [address] Care Team Providers Care Jewel Gauger Name Role Phone None, Provider Primary Care Provider Unavailabl e Encounter Details Date Type Department Care Team ([facility] st Contact Info) Description 08/01/2015 10:45 EST - 08/01/2015 10:46 EST Hospital Encounter [address] [address] Kamini Vega MD 111 [facility] [address] [place] [phone] Discharge Disposition: Home or Self Care Social [...] this encounter Medications at Time of Discharge glimepiride (AMARYL) 2 mg tablet Take 1 Tab by mouth every morning. 30 Tab 12 05/12/2010 07/15/2016 documented as of this encounter Discharge Disposition Disposition Code Departure Means Destination Home or Self Care documented in this encounter Plan of Treatment Not on file documented as of this encounter Visit Diagnoses Not on filedocumented in this encounter Care Teams Jewel Gauger Relationship Specialty Start Date End Date None, Provider PCP - General 01/01/15 08/27/15 documented as of this encounter
--- OUTSIDE RECORDS SUMMARY | 2024-05-31 00:49 | XMS_ITS | Encounter Summary ---
Author Organization [facility] Address [address] [place] [address] Care Team Providers Care Perianesthesia Nurse Name Role Phone PeytonNimisha martinez Kelly PULMONARY PHYSICIAN Primary Care Provider [phone] Reason for Visit * Reason Comments Miscarriage Patient states.10 w eeks and last Tuesday found out no heart beat thus she states, I am having a miscarriage Vaginal bleeding X 1 weeks Lots of cramps Encounter Details Date Type Department Care Team (Late st Contact Info) Description 08/31/2015 14:05 EDT - 08/31/2015 20:53 EDT Emergency [facility] Emergency Department - [address] [id number] Sonal Rand, PA-C [address] [phone] Danny Victoria MD Macnee, Lauren K, PA-Shiva [address] [facility], Level [address] [place] [address] Emergency, MD Ekaterina Miscarriage (Primary [...] 1820 EDT Temperature 36.3 ??C (97.4 ??F) 08/31/20152011 EDT Respiratory Rate 36 08/31/2015 1934 EDT Oxygen Saturation 100% 08/31/20152040 EDT Inhaled Oxygen Concentration - - Weight 97.5 kg (215 lb) 08/31/2015 1408 EDT Height 162.6 cm (5' 4.02) 08/31/2015 1408 EDT Body Mass Index 36.89 08/31/2015 1408 EDT documented in this encounter Discharge Instructions * Discharge Instructions* Sonal Rand - 08/31/2015 19:32 EDT Call PROGRAM MANAGEMENT ANALYST clinic tomorrow to arrange for follow-up in the next couple of days as instructed by PROGRAM MANAGEMENT ANALYST resident Percocet can be used for significant pain but should be used sparingly. Consider using [id number] stool softener if using this medication to help prevent constipation Return with any uncontrolled pain or significant dizziness documented in this encounter Medications at Time of Discharge glimepiride (AMARYL) 2 mg tablet Take 1 Tab by mouth every morning. 30 Tab 12 05/12/2010 07/15/2016 oxyCODONE-acetam inophen (PERCOCET) 5-325 mg per tablet Take 1-2 Tabs by mouth every 6 hours as needed for Pain. Earliest Fill Date: 08/31/15 Daily Max: 8 Tabs 15 Tab 0 08/31/2015 03/08/2016 PROGESTERONE MISC by misc (non-drug; combo route) route. 03/08/2016 documented as of this encounter Ordered Prescriptions Prescription Sig Dispense Quantity Refills Last Filled Start Date End Date oxyCODONE-acetamin ophen (PERCOCET) 5-325 mg per tablet Take 1-2 Tabs by mouth every 6 hours as needed for Pain. Earliest Fill Date: 08/31/15 Daily Max: 8 Tabs 15 Tab 0 08/31/2015 6 documented in this encounter Discharge Disposition Disposition [...] 8/10 and sharp. [facility] and underwent a TVUS [...] D&C. The patient was transfer to a [facility] bed and was reportedto pass a large [...] Grandmother ??? Diabetes Paternal Grandfather OB History [employer] History OB History Para Term AB SAB [...] identified. These findings are consistent with demise. PROGRAM MANAGEMENT ANALYST consultation and followup with serial beta [...] with Dr. Rene Espinal MD 08/31/2015 15:54 Cosigned by Rivera López MD at 09/01/2015 9:37 EDT documented in this encounter ED Notes * Charu Tipton PA - 08/31/20157 EDT Received signout from AGUILAR Rand at 8 PM. Patient status post D&C for incomplete with ketamine sedation, tolerating by mouth's, heart rates down to the 90s, stable for discharge. * Homa Goldsmith RN - 08/31/20152051 EDT Pt in NAD at time of d/c, denies pain or nausea. VSS. Reviewed d/c instructions thoroughly with pt and advised her to follow up with [employer] tomorrow. She verbalizes understanding. * Homa Goldsmith RN - 08/31/20152017 EDT Pt A&OX3, respirations unlabored, VSS. She denies nausea currently but states she feels groggy. Pt given kirsten stan to drink, will d/c when pt feels ready. * Danny Victoria MD - 08/31/20151824 EDTAssociated Order(s): ED SEDATION PROCEDURE I, Georgie [...] of DM, miscarriage, migraines who presents [facility] ED 10 weeks with a 6 day history of a known pole with no cardiac activity. She underwent suction aspiration for a prior miscarriage in the ED February 2015. The patient arrives [facility] ED with severe pelvic pain, vomiting [...] Heart rate is abnormal. Negative for murmur. [facility] Protocol: risks and benefits discussed consent given [...] 10 weeks who gets her care at [facility] and had 10 week ultrasound 6 days [...] known miscarriage at 10 weeks Discussed with PROGRAM MANAGEMENT ANALYST who recommend repeat ultrasound Ultrasound shows evidence of incomplete Labs unremarkable. Discussed with PROGRAM MANAGEMENT ANALYST resident at 6:15, they will perform a suction D&C here under conscious sedation 7:15 PM-procedure is completed, sounds as if patient may have aborted large amount of material justprior to suction procedure. Uncomplicated procedure otherwise She is now recovering from ketamine sedation Remains tachycardic and will continue with IV hydration, now on her third liter. Given Compazine for vomiting Discussed follow-up with PROGRAM MANAGEMENT ANALYST resident, she is to contact PROGRAM MANAGEMENT ANALYST clinic tomorrow morning and alexis arrange for close follow-up for her. They have recommended Percocet for pain control as she has anaphylactic reaction to NSAIDs Signout to Aguilar Tipton will d/c once has recovered and tachycardia improved ASSESSMENT AND PLAN Final diagnoses: None DISPOSITION: No disposition on file The patient's pain was managed to an adequate level weighing risk vs. benefit of further medications. Upon departure from the Emergency Department, the patient's pain was 0 on a zero to ten scale. Condition at departure from the Emergency Department: Stable PCP: Nimisha Victoria was consulted and agrees with treatment plan. 08/31/2015 18:14 No flowsheet data found. * Homa Goldsmith RN - 08/31/2015 1746 EDT OB in with pt. * Homa [...] ED SEDATION PROCEDURE (09/01/2015 0:25 EDT) Narrative [facility] EKG - 09/01/2015 0:25 EDT Danny [...] rate is abnormal. ??Negative for murmur. ? [facility] Protocol: risks and benefits discussed consent given [...] work, treatment, procedures, and medical decision making. us Danny Victoria MD PROCEDURE/MINOR SURGICAL OR DERABLES Final Result [facility] EKG * PREPARE RED BLOOD CELLS (08/31/2015 21:22 EDT) Product Code [id number] [facility] Comment:E0336 -1 RED BLOOD CELLS, Leukocytes Reduced Donor Number [id number] U [facility] BLOOD [facility] Unit ABO B [facility] BLOOD [facility] Unit Rh NEG [facility]OD [facility] Unit Status RE^Released From Crossmatch [facility] Product Expiration Date [id number] [facility] Unit Blood Type Code 1700 [facility] Coding System [id number] [facility] 08/31/2015 21:2 2 EDT us Felicita Espinal MD BLOOD BANK ORDERABLES Final Result Performing Organization Address [facility] de Phone Number [facility] [address] [place] [address] * ANTIBODY IDENTIFICATION (08/31/2015 19:17 EDT) Antibody Identification Anti-D; patient recd RhIg [facility] 08/31/2015 19:1 7 EDT us Felicita Espinal MD BLOOD BANK TESTS Final Resu lt Performing Organization Address [facility] de Phone Number [facility] [address] [place] [address] * RAD US OB LESS THAN 14 [...] identified. These findings are consistent with demise. PROGRAM MANAGEMENT ANALYST consultation and followup with serial beta [...] identified. These findings are consistent with demise. PROGRAM MANAGEMENT ANALYST consultation and followup with serial beta hCG is suggested. These findings were discussed with SONAL DAWSON by Dr. Zac Benjamin on 08/31/2015 5:30 PM. I have personally reviewed the images and the above interpretation and agree with the findings. us Sonal Rand PA-C IMG US ORDERABLES Final Res ult * TYPE AND SCREEN (08/31/2015 16:20 EDT) ABO B [facility] BLOOD [facility] Rh Factor Negative [facility] Antibody Screen Positive [facility] Specimen Expires: 09/03/2015 @ 23:59 [facility] Blood specimen (specimen) 08/31/2015 16:20 EDT us Felicita Espinal MD BLOOD BANK TESTS Final Resu lt Performing Organization Address City/State/[place] Co de Phone Number [facility] [address] [place] [phone] * (ABNORMAL) BASIC METABOLIC PANEL (08/31/2015 14:45 EDT) Sodium 140 136 - 145 mEq/L 08/31/2015 15:17 EDT [facility] Potassium 4.1 3.5 - 5.0 mEq/L 08/31/2015 15:17 EDT [facility] Chloride 106 96 - 110 mEq/L 08/31/2015 15:17 EDT [facility] CO2 24 24 - 32 mEq/L 08/31/2015 15:17 EDT [facility] BUN 9(L) 10 - 26 mg/dl 08/31/2015 15:17 [facility] Creatinine 0.41(L) 0.52 - 1.04 mg/dl 08/31/2015 15:17 [facility] GFR, Calculated 139 >60 ml/min/1.7 3m2 08/31/2015 15:17 [facility] Comment: eGFR calculated using CKD-EPI equation for non Americans. Multiply eGFR by 1.16 for Americans. Calcium 9.7 8.5 - 10.5 mg/dl 08/31/2015 15:17 [facility] Calculated Calcium 10.1 8.5 - 10.5 mg/dl 08/31/2015 15:17 [facility] Glucose, Serum 199(H) 70 - 100 mg/dl 08/31/2015 15:17 [facility] Fasting? Unknown 08/31/2015 15:02 [facility] Blood specimen (specimen) BLOOD SPECIMEN / Unknown 08/31/2015 14:45 EDT 08/31/2015 15:02 EDT us Sonal Rand PA-C CHEMISTRY & BLOOD GAS ORDER HAILEY Final Result [facility] [address] [place] [address] * (ABNORMAL) HEMAGRAM AND DIFFERENTIAL (08/31/2015 14:45 EDT) WBC 18.76(H) 4.0 - 12.4 K/cmm 08/31/2015 15:09 [facility] RBC 4.70 3.86 - 5.04 M/cmm 08/31/2015 15:09 [facility] Hemoglobin 14.3 11.6 - 15.2 gm/dl 08/31/2015 15:09 [facility] HCT 40.4 34.9 - 44.4 % 08/31/2015 15:09 [facility] MCV 86 81 - 98 fl 08/31/2015 15:09 [facility] MCH 30.4 26.7 - 33.3 pg 08/31/2015 15:09 [facility] MCHC 35.4 32.1 - 35.9 gm/dl 08/31/2015 15:09 [facility] RDW-CV 12.2 11.7 - 14.6 % 08/31/2015 15:09 [facility] RDW-SD 38.8 37.6 - 50.3 fl 08/31/2015 15:09 [facility] PLT 421(H) 141 - 377 K/cmm 08/31/2015 15:09 [facility] MPV 9.5 9.5 - 12.7 fl 08/31/2015 15:09 [facility] % Neutrophils 70.6 % 08/31/2015 15:09 [facility] % Lymphocytes 19.8 % 08/31/2015 15:09 [facility] % Monocytes 6.1 % 08/31/2015 15:09 [facility] % Eosinophils 2.6 % 08/31/2015 15:09 [facility] % Basophils 0.4 % 08/31/2015 15:09 [facility] % Immature Grans 0.5 % 08/31/2015 15:09 [facility] ABS Neutrophils 13.26(H) 2.20 - 8.85 K/cmm 08/31/2015 15:09 [facility] ABS Lymphs 3.71(H) 1.09 - 3.30 K/cmm 08/31/2015 15:09 [facility] ABS Monocytes 1.14(H) 0.1 - 0.8 K/cmm 08/31/2015 15:09 [facility] ABS Eosinophils 0.48 0.03 - 0.61 K/cmm 08/31/2015 15:09 [facility] ABS Basophils 0.08 0.01 - 0.11 K/cmm 08/31/2015 15:09 [facility] ABS Immature Grans 0.09(H) 0 - 0.06 K/cmm 08/31/2015 15:09 [facility] Type of Diff: Automated 08/31/2015 15:09 EDT [facility] Blood specimen (specimen) BLOOD SPECIMEN / Unknown 08/31/2015 14:45 EDT 08/31/2015 15:02 EDT us Sonal Rand PA-C PACKAGES & DNA PROBE ORDERA BLES Final Result [facility] [address] [place] [address] documented in this encounter Visit Diagnoses Diagnosis [...] may reflect changes made after this encounter. PROGESTERONE MISC by misc (non-drug; combo route) [...] STAT 1925 (Given - Provid er: Homa Goldsmith RN) sodium chloride 0.9 % BOLUS 1,000 mL (COMPLETED) 1,000 mL, intravenous, NOW X1, 1 dose, On 08/31/15 at 1445, STAT 1457 (New Bag - Prov ider: Jah Phan)193 (Completed - Provider: Homa Goldsmith RN) sodium chloride 0.9 % BOLUS 1,000 mL (COMPLETED) 1,000 mL, intravenous, NOW X1, 1 dose, On 08/31/15 at 1615, STAT 1612 (New Bag - Prov ider: Nini Schultz, MARCELO)1935 (Completed - Provider: Homa Goldsmith RN) documented in this encounter Orders Medications Ordered That Stan ht Not Have Been Administered Count Last Ordered Date First Ordered Date ketAMINE (KETALAR) 10 mg/mL IV injection 1 08/31/2015 propofol (DIPRIVAN) 10 mg/mL injection 1 Nursing Count Last Ordered Date First Orde red Date INSERT PERIPHERAL IV 1 08/31/2015 documented in this encounter Care Teams Perianesthesia Nurse Relationship Specialty Start Date End Date Nimisha Clifton NP 1 [facility] [address] [place] [address] PCP - General 08/28/15 03/07/16 documented as of this encounter
--- OUTSIDE RECORDS SUMMARY | 2024-05-31 00:49 | XMS_ITS | Encounter Summary ---
Author Organization [facility] Address [address] [place] [address] Care Team Providers Care Multilith Operator Name Role Phone Nimisha Clifton MANAGER HAIR Primary Care Provider [phone] Encounter Details Date Type Department Care Team (Late st Contact Info) Description 09/03/2015 Results Only [facility] Adult Primary Care - [place] [address] [place], [place] [id number] Nimisha Clifton, MANAGER HAIR 1 [facility] [address] [place] [address] Social History Tobacco Use Types [...] 0.8 - 1.8 ng/dl 09/03/2015 18:43 EDT [facility] BLOOD SPECIMEN / Unknown 09/03/2015 12:33 EDT 09/03/2015 13:37 EDT us Nimisha Clifton NP CHEMISTRY & BLOOD GAS ORD ERABLES Final Result [facility] [address] [place] [address] documented in this encounter Visit Diagnoses Not on filedocumented in this encounter Care Teams Multilith Operator Relationship Specialty Start Date End Date Nimisha Clifton NP 1 [facility] [address] [place] [phone] PCP - General 08/28/15 03/07/16 documented as of this encounter
--- OUTSIDE RECORDS SUMMARY | 2024-05-31 00:49 | XMS_ITS | Encounter Summary ---
Author Organization [facility] Address [address] [place] [address] Care Team Providers Care Parts Delivery Driver Name Role Phone None, Provider Primary Care Provider Unavailabl e Encounter Details Date Type Department Care Team (Late st Contact Info) Description 02/11/2015 Results Only [place] [phone] [address] [address] Social History Tobacco Use Types [...] EDT) Antibody Screen Neg 02/11/2015 22:52 EDT [facility] BLOOD SPECIMEN / Unknown 02/11/2015 14:34 EDT 02/11/2015 20:49 EDT Alaina Miranda [facility] TESTS Final Result Performing Organization Address City/[facility]/ZIP Co de Phone Number [facility] [address] [place] [address] * BLOOD TYPE FOR PRENATALS- AMBULATORY (02/11/2015 14:34 EDT) ABO and Rh Type B NEG 02/11/2015 22:52 EDT [facility] BLOOD SPECIMEN / Unknown 02/11/2015 14:34 EDT 02/11/2015 20:49 EDT Alaina Miranda [facility] ORDERABLES Final Res ult Performing Organization Address [facility] Co de Phone Number [facility] [address] [place] [address] documented in this encounter Visit Diagnoses Not on filedocumented in this encounter Care Teams Parts Delivery Driver Relationship Specialty Start Date End Date None, Provider PCP - General 01/01/15 08/27/15 documented as of this encounter
--- OUTSIDE RECORDS SUMMARY | 2024-05-31 00:49 | XMS_ITS | Encounter Summary ---
Author Organization [facility] Address [address] [place] [id number] Care Team Providers Care Drier Tender Name Role Phone None, Provider Primary Care Provider Unavailabl e Encounter Details Date Type Department Care Team (Late st Contact Info) Description 08/01/2015 Results Only [facility] [phone] Kamini Vega MD [address] [place] [address] [address] [place] [address] Social History Tobacco Use Types [...] Progesterone 9.7 ng/ml 08/01/2015 19:37 EST [facility] Comment: NON- FEMALES: follicular phase: ??<0.2-1.4 ng/mL luteal phase: 3.3-25.6 ng/ml postmenopausal: ??<0.2-0.7 ng/mL FEMALES: first trimester: 11.2-90.0 ng/ml second trimester: 25.6-89.4 ng/ml third trimester: 48.4-422.5 ng/ml ECTOPIC PREGNANCIES: consult pathologist BLOOD SPECIMEN / Unknown 08/01/2015 9:38 EST 08/01/2015 17:36 EST us Kamini Vega MD CHEMISTRY & BLOOD GAS ORDERA BLES Final Result [facility] [address] [place] [address] documented in this encounter Visit Diagnoses Not on filedocumented in this encounter Care Teams Drier Tender Relationship Specialty Start Date End Date None, Provider PCP - General 01/01/15 08/27/15 documented as of this encounter
--- OUTSIDE RECORDS SUMMARY | 2024-05-31 00:49 | XMS_ITS | Encounter Summary ---
Author Organization [facility] Address [address] [place] [address] Care Team Providers Care Application Software Developer Name Role Phone None, Provider [...] 20:46 EDT - 12/05/2016 2:52 EDT Emergency [facility] Emergency Department - [address] [address] Benita Sol MD [address] [place] [address], Level 1 [place] [address] Emergency, MD Ekaterina Type 2 diabetes mellitus with hyperglycemia, with long-term current use of insulin ([facility]) (Primary Dx) Discharge Disposition: Home or Self [...] Reading Time Taken Comments Blood Pressure 102/74 12/04/20162329 EDT Pulse 98 12/04/20162329 EDT Temperature 36.4 [...] Allergy status to analgesic agent status-Z88.6[ICD-10-CM] Z79.4 FDC (current) use of insulin-Z79.4[ICD-10-CM] documented in this encounter Discharge Instructions * Discharge Instructions* Benita Sol MD - 12/05/2016 2:13 EDT Metformin is $4/month at [facility]. Please see a primary care doctor [facility]. You can call from our list of accepting providers. Continue to take your Lantus. This is very important. * Attachments The following attachments cannot be sent through Care Everywhere. * DIABETES: TYPE 2: METFORMIN: GENERAL INFO ([place]) * DIABETES DIET GUIDELINES: GENERAL INFO ([place]) documented in this encounter Medications at Time of Discharge amoxicillin (AMOXIL) 500 mg capsule Take 1 Cap by mouth 3 times daily for 10 days. 30 Cap 12/05/2016 12/15/2016 metFORMIN (GLUCOPHAGE) 500 mg tablet Take 1 Tab by mouth 2 times daily for 30 days. 180 Tab 1 12/05/2016 01/04/2017 documented as of this encounter Ordered Prescriptions Prescription Sig Dispense Quantity Refills Last Filled Start Date End Date metFORMIN (GLUCOPHAGE) 500 [...] in this encounter ED Notes * Radha Ritchie RN - 12/05/2016 0251 EDT Discharge instructions reviewed [...] is supposed totake insulin but im workin iubenda my insurance for it right now. HPI [...] Value Status Glucose, Fingerstick 350 (*) Final Complaint Analyst ID [id number] Final GLUCOSE, GLUCOMETER - Abnormal Glucose, Fingerstick 316 (*) Final Complaint Analyst ID [id number] Final HEMAGRAM AND DIFFERENTIAL - Abnormal WBC [...] Bilirubin Neg Final Ketones Neg Final Specific [place] 1.020 Final pH 6.0 Final Protein Neg Final Urobilinogen 0.2 Final Nitrite Neg Final Leuk Esterase Neg Final Tech ID [id number] Final POCT TEST, CLINITEK UPT Result Neg Final Tech ID [id number] Final POCT GLUCOSE Relevant Data Procedures ED [...] the Emergency Department: Improved PCP: Provider None [facility] 12/05/2016 9:25 No flowsheet data found. [...] (12/05/2016 1:16 EDT) Color YELLOW 12/05/2016 1:24 [facility] Clarity, UA Clear 12/05/2016 1:24 [facility] Glucose 3+(A) Neg 12/05/2016 1:24 [facility] Bilirubin Neg Neg 12/05/2016 1:24 [facility] Ketones Neg Neg 12/05/2016 1:24 [facility] Specific [place] 1.020 1.001 - 1.035 12/05/2016 1:24 [facility] Blood 2+(A) Neg 12/05/2016 1:24 [facility] pH 6.0 4.6 - 8.0 12/05/2016 1:24 [facility] Protein Neg Neg 12/05/2016 1:24 [facility] Urobilinogen 0.2 0.2 - 1.0 E.U./dl 12/05/2016 1:24 [facility] Nitrite Neg Neg 12/05/2016 1:24 [facility] Leuk Esterase Neg Neg 12/05/2016 1:24 [facility] car jockey ID [id number] 12/05/2016 1:24 [facility] Comment:Test performed at Em ergency Department Urine specimen (specimen) URINE / Unknown 12/05/2016 1:16 EDT 12/05/2016 1:24 EDT Benita Sol MD POINT OF CARE TEST ORDERABLES Final Result Performing Organization Address City/[facility]/ZIP Co de Phone Number [facility] [address] [place] [address] * POCT TEST, CLINITEK (12/05/2016 1:14 EDT) UPT Result Neg Neg 12/05/2016 1:27 EDT [facility] car jockey ID [id number] 12/05/2016 1:27 EDT [facility] Comment:Test performed at Em ergency Department Urine specimen (specimen) URINE / Unknown 12/05/2016 1:14 EDT 12/05/2016 1:27 EDT Benita Sol MD POINT OF CARE TEST ORDERABLES Final Result Performing Organization Address City/[facility]/ZIP Co de Phone Number [facility] [address] [place] [address] * (ABNORMAL) BASIC METABOLIC PANEL (12/05/2016 1:03 EDT) Sodium 140 136 - 145 mEq/L 12/05/2016 1:41 [facility] Potassium 4.4 3.5 - 5.0 mEq/L 12/05/2016 1:41 [facility] Chloride 101 96 - 110 mEq/L 12/05/2016 1:41 [facility] CO2 26 22 - 32 mEq/L 12/05/2016 1:41 [facility] BUN 14 10 - 26 mg/dl 12/05/2016 1:41 [facility] Creatinine 0.48(L) 0.52 - 1.04 mg/dl 12/05/2016 1:41 [facility] GFR, Calculated 131 >60 ml/min/1.7 3m2 12/05/2016 1:41 [facility] Comment: eGFR calculated using CKD-EPI equation for non Americans. Multiply eGFR by 1.16 for Americans. Calcium 9.9 8.5 - 10.5 mg/dl 12/05/2016 1:41 [facility] Calculated Calcium 9.7 8.5 - 10.5 mg/dl 12/05/2016 1:41 [facility] Glucose, Serum 295(H) 70 - 100 mg/dl 12/05/2016 1:41 [facility] Fasting? Unknown 12/05/2016 1:17 [facility] Blood specimen (specimen) BLOOD SPECIMEN / Unknown 12/05/2016 1:03 EDT 12/05/2016 1:17 EDT us Benita Sol MD CHEMISTRY & BLOOD GAS ORDERAB LES Final Result [facility] [address] [place] [address] * (ABNORMAL) HEMAGRAM AND DIFFERENTIAL (12/05/2016 1:03 EDT) WBC 16.71(H) 4.0 - 12.4 K/cmm 12/05/2016 1:22 [facility] RBC 5.08(H) 3.86 - 5.04 M/cmm 12/05/2016 1:22 [facility] Hemoglobin 15.6(H) 11.6 - 15.2 gm/dl 12/05/2016 1:22 [facility] HCT 43.8 34.9 - 44.4 % 12/05/2016 1:22 [facility] MCV 86 81 - 98 fl 12/05/2016 1:22 [facility] MCH 30.7 26.7 - 33.3 pg 12/05/2016 1:22 [facility] MCHC 35.6 32.1 - 35.9 gm/dl 12/05/2016 1:22 [facility] RDW-CV 12.2 <14.7 % 12/05/2016 1:22 [facility] RDW-SD 38.3 <50.4 fl 12/05/2016 1:22 [facility] PLT 415(H) 141 - 377 K/cmm 12/05/2016 1:22 [facility] MPV 9.6 9.5 - 12.7 fl 12/05/2016 1:22 [facility] Neutrophils 54.0 % 12/05/2016 2:05 [facility] Lymphocytes 34.0 % 12/05/2016 2:05 [facility] Monocytes 7.0 % 12/05/2016 2:05 [facility] Eosinophils 3.0 % 12/05/2016 2:05 [facility] Basophils 2.0 % 12/05/2016 2:05 [facility] ABS Neutrophils 9.03(H) 2.20 - 8.85 K/cmm 12/05/2016 2:05 [facility] ABS Lymphs 5.68(H) 1.09 - 3.30 K/cmm 12/05/2016 2:05 [facility] ABS Monocytes 1.17(H) 0.1 - 0.8 K/cmm 12/05/2016 2:05 [facility] ABS Eosinophils 0.50 0.03 - 0.61 K/cmm 12/05/2016 2:05 [facility] ABS Basophils 0.33(H) 0.01 - 0.11 K/cmm 12/05/2016 2:05 [facility] Type of Diff: Manual 12/05/2016 2:05 [facility] Blood specimen (specimen) BLOOD SPECIMEN / Unknown 12/05/2016 1:03 EDT 12/05/2016 1:18 EDT us Benita Sol MD PACKAGES & DNA PROBE ORDERABL ES Final Result [facility] [address] [place] [address] * (ABNORMAL) GLUCOSE, GLUCOMETER (12/05/2016 0:32 EDT) Glucose, Fingerstick 316(H) 70 - 100 mg/dl 12/05/2016 0:32 EDT [facility] Complaint Analyst ID [id number] 12/05/2016 0:32 EDT [facility] Comment:Test Performed by [facility] Services BLOOD SPECIMEN / Unknown 12/05/2016 0:32 EDT 12/05/2016 0:33 EDT us Provider Unknown CHEMISTRY & BLOOD GAS ORDERA BLES Final Result [facility] [address] [place] [address] * (ABNORMAL) GLUCOSE, GLUCOMETER (12/04/2016 20:58 EDT) Glucose, Fingerstick 350(H) 70 - 100 mg/dl 12/04/2016 21:02 EDT [facility] Complaint Analyst ID [id number] 12/04/2016 21:02 EDT [facility] Comment:[facility] BLOOD SPECIMEN / Unknown 12/04/2016 20:58 EDT 12/04/2016 21:02 EDT us Provider Unknown CHEMISTRY & BLOOD GAS ORDERA BLES Final Result [facility] [address] [place] [address] documented in this encounter Visit Diagnoses Diagnosis Type 2 diabetes mellitus with hyperglycemia, with long-term current use of insulin ([facility])- Primary documented in this encounter [...] 0157 (New Bag - Prov ider: Radha Ritchie RN)0223 (Completed - Provider: Radha Ritchie RN) documented [...] 12/05/2016 documented in this encounter Care Teams Application Software Developer Relationship Specialty Start Date End Date None, Provider PCP - General 03/08/16 08/21/18 documented as of this encounter
--- OUTSIDE RECORDS SUMMARY | 2024-05-31 00:49 | XMS_ITS | Encounter Summary ---
Author Organization [facility] Address [address] [place] [address] Care Team Providers Care Director Broadcast Name Role Phone None, Provider Primary Care Provider Unavailabl e Reason for Visit * Reason Onset Date Comments Eye Problem 07/29/2016 Encounter Details Date Type Department Care Team (Late st Contact Info) Description 07/29/2016 Telephone [facility] Ophthalmology - [address] [address] Unknown, Provider, Eye Problem Social History Tobacco [...] he will see pt tomorrow. Catherine Alonzo ([facility]) calling pt to schedule. * Telephone [...] to you in the next two hours? [phone], can leavea message (VERIFY THE PHONE NUMBERS REGARDLESS OF WHAT IS IN THE SYSTEM.) (Please remember to ask the MD what he/she needs from the paper chart.) * Telephone Encounter - Catherine Donald - 07/29/2016 4878 EST Pt was seen at ed. documented in this encounter Plan of Treatment Not on file documented as of this encounter Visit Diagnoses Not on filedocumented in this encounter Care Teams Director Broadcast Relationship Specialty Start Date End Date None, Provider PCP - General 03/08/16 08/21/18 documented as of this encounter
--- OUTSIDE RECORDS SUMMARY | 2024-05-31 00:49 | XMS_ITS | Encounter Summary ---
Author Organization [facility] Address [address] [place] [address] Care Team Providers Care Floor Cashier Name Role Phone None, Provider Primary Care Provider Unavailabl e Reason for Visit * Reason Comments Foot Injury States a log fell on her left foot about 1 hour ago while swimming. + pain, swelling, tingling, and numbness. Unable to walk on foot. 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 Encounter Details Date Type Department Care Team (Late st Contact Info) Description 01/01/2015 0:26 EDT - 01/01/2015 2:25 EDT Emergency [facility] Emergency Department - [address] [id number] Kylah Whitaker PA-C [address] [place] [address], [address] [place] [address] Emergency, MD Ekaterina Contusion of [...] Reading Time Taken Comments Blood Pressure 120/76 01/01/2015 0224 EDT Pulse 104 01/01/2015223 EDT Temperature 36.7 ??C (98.1 ??F) 01/01/2015 0030 EDT Respiratory Rate 16 01/01/2015223 EDT Oxygen Saturation 100% 01/01/2015223 EDT Inhaled [...] be sent through Care Everywhere. 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 HPI [...] - Abnormal Glucose, Fingerstick 152 (*) Final [place] Machine Tender ID [id number] Final POCT GLUCOSE Procedures ED COURSE A [...] andwas wheeled out without incident. * Niesha Trejo RN - 01/01/2015 0042 EDT Ice pack [...] the findings. Kylah Whitaker PA-C IMG DIAGNOSTIC IMAGING ORDERABLE S Final Result * (ABNORMAL) GLUCOSE, GLUCOMETER (01/01/2015 0:53 EDT) Glucose, Fingerstick 152(H) 70 - 100 mg/dl 01/01/2015 0:56 EDT [facility] [place] Machine Tender ID [id number] 01/01/2015 0:56 EDT [facility] Comment:[facility] BLOOD SPECIMEN / Unknown 01/01/2015 0:53 EDT 01/01/2015 0:56 EDT Provider Unknown CHEMISTRY & BLOOD GAS ORDERA BLES Final Result [facility] [address] [place] [address] documented in this encounter Visit Diagnoses Diagnosis [...] 01/01/2015 documented in this encounter Care Teams Floor Cashier Relationship Specialty Start Date End Date None, Provider PCP - General 01/01/15 08/27/15 documented as of this encounter
--- OUTSIDE RECORDS SUMMARY | 2024-05-31 00:49 | XMS_ITS | Encounter Summary ---
Author Organization [facility] Address [address] [place] [address] Care Team Providers Care Service Desk Team Lead Name Role Phone None, Provider Primary Care Provider Unavailabl e Encounter Details Date Type Department Care Team (Late st Contact Info) Description 08/22/2015 Documentation Visit [facility] Obstetrics & Midwifery - [address] [id number] Broderick Wolff MD [address] [facility], [address] [place] [address] Social History Tobacco Use [...] and dating added for consult on 08.26.15 aMry Whitney documented in this encounter Plan of Treatment Not on file documented as of this encounter Visit Diagnoses Not on filedocumented in this encounter Care Teams Service Desk Team Lead Relationship Specialty Start Date End Date None, Provider PCP - General 01/01/15 08/27/15 documented as of this encounter
--- OUTSIDE RECORDS SUMMARY | 2024-05-31 00:49 | XMS_ITS | Encounter Summary ---
Author Organization [facility] Address [address] [place] [address] Care Team Providers Care Visitor Information Assistant Name Role Phone Nimisha Clifton SCHOOL CUSTODIAN Primary Care Provider [phone] Reason for Visit * Reason Onset Date Comments No Show 10/03/2015 Encounter Details Date Type Department Care Team (Late st Contact Info) Description 10/03/2015 Telephone [facility] Adult Primary Care - [place] [address] [place], [place] [address] Nimisha Clifton, SCHOOL CUSTODIAN 1 [facility] [address] [place] [address] No Show Social History Tobacco [...] on filedocumented in this encounter Care Teams Visitor Information Assistant Relationship Specialty Start Date End Date Nimisha Clifton NP [address] [facility] [address] [place] [phone] PCP - General 08/28/15 03/07/16 documented as of this encounter
--- OUTSIDE RECORDS SUMMARY | 2024-05-31 00:49 | XMS_ITS | Encounter Summary ---
Author Organization [facility] Address [address] [place] [address] Care Team Providers Care Traveling Missionary Name Role Phone None, Provider Primary Care Provider Unavailabl e Reason for Visit * Reason Comments Eye Problem woke yesterday am wi th right eye lid swelling, worsening today, now with blurred vision. denies drainage. Encounter Details Date Type Department Care Team (Late st Contact Info) Description 07/28/2016 20:50 EST - 07/28/2016 22:56 EST Emergency [facility] Emergency Department - Main [address] [address] Fran Barbosa MD [address] [place] [address], [address] [place] [address] Emergency, MD Ekaterina Corneal abrasion, [...] complications-E11.9[ICD-10-CM] F17.210 Nicotine dependence, cigarettes, uncomplicated-F17.210[ICD-10-CM] Z79.84 director long term care (current) use of oral hypoglycemic drugs-Z79.84[ICD-10-CM] Z88.6 [...] sent through Care Everywhere. * CORNEAL SCRATCHES (FRENCH) documented in this encounter Medications at Time of Discharge metFORMIN (GLUCOPHAGE) 500 mg tablet Take 1 Tab by mouth 2 times daily. 180 Tab 3 07/15/2016 12/05/2016 documented as of this encounter Discharge Disposition Disposition Code Departure Means Destination Home or Self Care Walk-out Home documented in this encounter ED Notes * Ann Martínez RN - 07/28/2016 1093 EST Ordered for discharge. Aftercare instructions, follow up, s/s to return and antibiotic ointment usereviewed with pt. Pt stable and ambulatory upon discharge. * Fran Barbosa MD - 07/28/20166 EST DOS: 07/28/2016 Chief Complaint Patient presents with ??? Eye Problem woke yesterday am with right eye lid swelling, worsening today, now with blurred vision. denies drainage. HPI HPI Comments: I, Jackie Karly, am scribing for Fran Barbosa MD while he is personally performing the service. Jackie Brandt 07/28/2016 22:26 Cristy Montelongo is a 31 [...] RN) documented in this encounter Care Teams Traveling Missionary Relationship Specialty Start Date End Date None, Provider PCP - General 03/08/16 08/21/18 documented as of this encounter
--- OUTSIDE RECORDS SUMMARY | 2024-05-31 00:49 | XMS_ITS | Encounter Summary ---
Author Organization [facility] Address [address] [place] [address] Care Team Providers Care Electronics Repair Technician Name Role Phone None, Provider Primary Care Provider Unavailabl e Encounter Details Date Type Department Care Team (Late st Contact Info) Description 07/23/2015 Results Only [facility] [phone] Robyn Bautista MD [address] [place] [address] Social History Tobacco Use Types Packs/Day Years [...] EST) Progesterone 9.5 ng/ml 07/23/2015 11:47 EST [facility] Comment: NON- FEMALES: follicular phase: ??<0.2-1.4 ng/mL luteal phase: 3.3-25.6 ng/ml postmenopausal: ??<0.2-0.7 ng/mL FEMALES: first trimester: 11.2-90.0 ng/ml second trimester: 25.6-89.4 ng/ml third trimester: 48.4-422.5 ng/ml ECTOPIC PREGNANCIES: consult pathologist BLOOD SPECIMEN / Unknown 07/23/2015 8:56 EST 07/23/2015 10:06 EST Robyn Bautista MD CHEMISTRY & BLOOD GAS ORDERABLES Final Result [facility] [address] [place] [address] * (ABNORMAL) HCG FOR (07/23/2015 8:56 EST) Quant Beta HCG, Preg 2,093(H) <5 mIU/ml 07/23/2015 10:55 EST [facility] Comment: Reference Range: Negative = <5 Indeterminate = 5-25 recommend repeat in 48 hours. Positive = >25 BLOOD SPECIMEN / Unknown 07/23/2015 8:56 EST 07/23/2015 10:06 EST Robyn Bautista MD CHEMISTRY & BLOOD GAS ORDERABLES Final Result Performing Organization Address City/[facility]/ZIP Co de Phone Number [facility] [address] [place] [address] documented in this encounter Visit Diagnoses Not on filedocumented in this encounter Care Teams Electronics Repair Technician Relationship Specialty Start Date End Date None, Provider PCP - General 01/01/15 08/27/15 documented as of this encounter
--- OUTSIDE RECORDS SUMMARY | 2024-05-31 00:49 | XMS_ITS | Encounter Summary ---
Author Organization [facility] Address [address] [place] [address] Care Team Providers Care Gun Perforator Name Role Phone None, Provider Primary Care Provider Unavailabl e Reason for Visit * Reason Comments Eye Problem Corneal abrasion rig ht eye, happened Tuesday morning upon awakening. No CL wear. No trauma recalled. Started eymycin ointment QID night in ER. Reduced pain, [place] still blurred. Encounter Details Date Type Department Care Team (Late st Contact Info) Description 07/30/2016 12:30 EST Office Visit [facility] Ophthalmology - [address] [address] Broderick Schwartz MD [address] [facility], [address] [place] [address] Social History Tobacco Use Types [...] Eye Problem Corneal abrasion right eye, happened Cher morning upon awakening. No CL wear. No [...] factors: Began emycin QID right eye on Associated Signs & Symptoms: Attestation: ROS Constitutional: NL ENT/Mouth NL Cardiovascular: NL Respiratory: NL Gastrointestinal: NL Genitourinary: NL Musculoskeletal: NL Integumentary: NL Neurologic: NL Psychiatric: NL Endocrine: Diabetes Hematologic: NL Immunologic: Crime Scene Analyst: Exposures: Other: Attestation: Allergies include: Citalopram and [...] Normal Normal Vessels Normal Normal Care Teams Gun Perforator Relationship Specialty Start Date End Date None, Provider PCP - General 03/08/16 08/21/18 documented as of this encounter
--- OUTSIDE RECORDS SUMMARY | 2024-05-31 00:49 | XMS_ITS | Encounter Summary ---
Author Organization [facility] Address [address] [place] [address] Care Team Providers Care Speech Therapist Technician Name Role Phone Yannicknigel Nimisha Mendoza COIL INSPECTOR Primary Care Provider [phone] Encounter Details Date Type Department Care Team (Late st Contact Info) Description 09/03/2015 Phlebotomy Only [address] [address] [employer]or [employer] Alteration, Outpatient Type 2 diabetes mellitus without complication ([facility]) ([facility]); Tachycardia; Depression, unspecified depression type Social History [...] EDT Type 2 diabetes mellitus without complication ([facility]) ([facility]) COMPREHENSIVE METABOLIC PANEL (CMP) Routine 09/03/2015 12:33 EDT Type 2 diabetes mellitus without complication ([facility]) [facility] documented in this encounter Results * (ABNORMAL) THYROID CASCADE (09/03/2015 12:33 EDT) Pathologist [facility] TSH 0.48(L) 0.55 - 4.78 uIU/ml 09/03/2015 18:19 EDT [facility] Comment: TSH cascade is not recommended for patients in which pituitary or hypothalamic disorders are suspected. Blood specimen (specimen) BLOOD SPECIMEN / Unknown 09/03/2015 12:33 EDT 09/03/2015 13:37 EDT Nimisha Clifton NP CHEMISTRY & BLOOD GAS ORD ERABLES Final Result Performing Organization Address [facility] Co de Phone Number [facility] [address] [place] [address] * HEMOGLOBIN A1C (09/03/2015 12:33 EDT) [facility] Hemoglobin A1C 8.8 % 09/03/2015 14:56 EDT [facility] Comment: Reference Range: <5.7% Normal 5.7-6.4% Increased risk for diabetes =>6.5% Diagnostic for diabetes (if confirmed) The A1c goal for non adults in general is <7%. The A1c goal for selected patients may be significantly lower than 7% if this can be achieved without significant hypoglycemia or other adverse effects of treatment. Est Avg Glucose 206 mg/dl 6 14:56 EDT [facility] Comment: eAG represents the A1c result expressed as average glucose in mg/dl. Blood specimen (specimen) BLOOD SPECIMEN / Unknown 09/03/2015 12:33 EDT 09/03/2015 13:37 EDT Nimisha Clifton NP CHEMISTRY & BLOOD GAS ORD ERABLES Final Result Performing Organization Address [facility] Co de Phone Number [facility] [address] [place] [address] * (ABNORMAL) COMPREHENSIVE METABOLIC PANEL (CMP) (09/03/2015 12:33 EDT) Pathologist [facility] Potassium 4.1 3.5 - 5.0 mEq/L 09/03/2015 14:15 [facility] Sodium 141 136 - 145 mEq/L 09/03/2015 14:15 [facility] Chloride 101 96 - 110 mEq/L 09/03/2015 14:15 [facility] CO2 29 24 - 32 mEq/L 09/03/2015 14:15 [facility] Total Alkaline Phosphatase 84 38 - 126 U/L 09/03/2015 14:15 [facility] Bilirubin, Total <0.5 <1.4 mg/dl 09/03/19 16 14:15 [facility] AST 19 15 - 46 U/L 09/03/2015 14:15 [facility] ALT 33 <53 U/L 09/03/2015 14:15 [facility] Albumin 3.9 3.4 - 4.9 g/dl 09/03/2015 14:15 [facility] Total Protein 6.6 6.3 - 8.2 g/dl 09/03/2015 14:15 [facility] Creatinine 0.48(L) 0.52 - 1.04 mg/dl 09/03/2015 14:15 [facility] GFR, Calculated 132 >60 ml/min/1.7 3m2 09/03/2015 14:15 [facility] Comment: eGFR calculated using CKD-EPI equation for non Americans. Multiply eGFR by 1.16 for Americans. BUN 11 10 - 26 mg/dl 09/03/2015 14:15 [facility] Calcium 9.8 8.5 - 10.5 mg/dl 09/03/2015 14:15 [facility] Calculated Calcium 10.3 8.5 - 10.5 mg/dl 09/03/2015 14:15 [facility] Glucose, Serum 205(H) 70 - 100 mg/dl 09/03/2015 14:15 [facility] Fasting? No 09/03/2015 12:23 [facility] Blood specimen (specimen) BLOOD SPECIMEN / Unknown 09/03/2015 12:33 EDT 09/03/2015 13:37 EDT Nimisha Clifton NP CHEMISTRY & BLOOD GAS ORD ERABLES Final Result [facility] [address] [place] [address] documented in this encounter Visit Diagnoses Diagnosis Type 2 diabetes mellitus without complication ([facility]) Type II or unspecified type diabetes mellitus without mention of complication, not stated as uncontrolled Tachycardia Tachycardia, unspecified Depression, unspecified depression type documented in this encounter Care Teams Speech Therapist Technician Relationship Specialty Start Date End Date Nimisha Clifton NP 1 [facility] [address] [place] [address] PCP - General 08/28/15 03/07/16 documented as of this encounter
--- OUTSIDE RECORDS SUMMARY | 2024-05-31 00:49 | XMS_ITS | Encounter Summary ---
Author Organization [facility] Address [address] [place] [address] Care Team Providers Care Cordwood Cutter Helper Name Role Phone None, Provider Primary Care Provider Unavailabl e Reason for Visit * Reason Comments Cough Sent from [facility], for cough, fever, sore throat x three day, cough in dry, c/o chest pain and headache due to the cough. aox3 lungs sound diminished t/o Encounter Details Date Type Department Care Team (Late st Contact Info) Description 03/08/2016 17:09 EDT - 03/08/2016 23:11 EDT Emergency [facility] Emergency Department - [address] [phone] Broderick Foster MD [address] [facility], Level [address] [place] [phone] Emergency, MD Ekaterina Acute bronchitis, unspecified organism (Primary Dx); Type 2 diabetes mellitus not at goal ([facility]) Discharge Disposition: Home or Self Care [...] Reading Time Taken Comments Blood Pressure 102/66 03/08/20163 EDT Pulse 108 03/08/20162202 EDT Temperature 36.8 [...] [facility] primary care, [phone], to arrange for an appointment as soon as possible to resume appropriate care of your diabetes. Call sooner or return to this emergency department as needed if symptoms worsen or change in character. documented in this encounter Medications at Time of Discharge azithromycin (ZITHROMAX) 250 mg tablet Take 1 [...] Refills Last Filled Start Date End Date azithromycin (ZITHROMAX) 250 [...] Notes * Nini Schultz RN - 03/08/2016 6831 EDT AVS reviewed, asked to f/u with pcp and to return to ed for worsening s/s * Nini Schultz RN - 03/08/2016 6548 EDT Provider at the bedside * Nini Schultz RN - 03/08/2016 190 EDT Patient ambulatory to bathroom with steady gait * Nini Schultz RN - 03/08/2016 185 EDT Blood drawn via butterfly needle per [...] HR-120, BP-90/50, NOTE TAKEN BY DR. FOSTER ([facility]) * Catherine Osullivan - 03/08/2016 1720 EDT TCALL: CRISTY TALBOT, 85, 30YO FEMALE, DMII, NO MEDS X4 MONTHS, NOW RESP. INFECTION, WBC 21,000 GLUC. 273, CXR NEG., HR-120, BP-90/50, NOTE TAKEN BY DR. FOSTER ([facility]) * Catherine Osullivan - 03/08/2016 1720 EDT TCALL: CRISTY TALBOT, 85, 30YO FEMALE, DMII, NO MEDS X4 MONTHS, NOW RESP. INFECTION, WBC 21,000 GLUC. 273, CXR NEG., HR-120, BP-90/50, NOTE TAKEN BY DR. FOSTER ([facility]) * Broderick Foster MD - 03/08/2016 1716 EDT DOS: 03/08/2016 Chief Complaint Patient presents with ??? Cough Sent from [facility], for cough, fever, sore throat [...] diarrhea, and constipation. She reports going to [facility] who sent her here due to elevated [...] Value Status Glucose, Fingerstick 163 (*) Final Sample Builder ID [id number] Final GLUCOSE, GLUCOMETER - Abnormal Glucose, Fingerstick 239 (*) Final Sample Builder ID [id number] Final BACTERIAL CULTURE, BLOOD BACTERIAL CULTURE, BLOOD [...] Pt was instruction to follow up at [facility]. Prior to discharge usual and [...] 70 - 100 mg/dl 03/08/2016 21:12 EDT [facility] Sample Builder ID [id number] 03/08/2016 21:12 EDT [facility] Comment:Test Performed by [facility] BLOOD SPECIMEN / Unknown 03/08/2016 21:11 EDT 03/08/2016 21:12 EDT us Provider Unknown CHEMISTRY & BLOOD GAS ORDERA BLES Final Result Performing Organization Address [facility] Co de Phone Number [facility] [address] [place] [address] * BACTERIAL CULTURE, BLOOD (03/08/2016 18:47 EDT) Result No growth 03/13/2016 8:26 EDT [facility] Blood specimen (specimen) BLOOD SPECIMEN / Unknown 03/08/2016 18:47 EDT 03/08/2016 20:07 EDT Comment:Left~Antecubital Broderick Foster MD MICROBIOLOGY - GENERAL CLEMENTE GOLDEN Final Result [facility] [address] [place] [address] * BACTERIAL CULTURE, BLOOD (03/08/2016 18:47 EDT) Result No growth 03/13/2016 8:26 EDT [facility] Blood specimen (specimen) BLOOD SPECIMEN / Unknown 03/08/2016 18:47 EDT 03/08/2016 20:05 EDT Comment:Right~Antecubital Broderick Foster MD MICROBIOLOGY - GENERAL ORDE A[place]ANOBLE Final Result Performing Organization Address City/[facility]/ZIP Co de Phone Number [facility] [address] [place] [address] * (ABNORMAL) GLUCOSE, GLUCOMETER (03/08/2016 17:24 EDT) Glucose, Fingerstick 163(H) 70 - 100 mg/dl 03/08/2016 17:26 EDT [facility] Sample Builder ID [id number] 03/08/2016 17:26 EDT [facility] Comment:Test Performed by [facility] BLOOD SPECIMEN / Unknown 03/08/2016 17:24 EDT 03/08/2016 17:26 EDT us Provider Unknown CHEMISTRY & BLOOD GAS ORDERA BLES Final Result Performing Organization Address [facility] Co de Phone Number [facility] [address] [place] [address] documented in this encounter Visit Diagnoses Diagnosis Acute bronchitis, unspecified organism- Primary Type 2 diabetes mellitus not at goal ([facility]) Type II or unspecified type diabetes [...] (New Bag - Prov ider: Nini Schultz RN)2018 (Completed - Provider: Nini Schultz RN) benzocaine-menthol [...] STAT 2022 (Given - Provid er: Nini Schultz RN) insulin glargine (LANTUS SOLOSTAR) injection pen [...] (New Bag - Prov ider: Nini Schultz RN)220 (Completed - Provider: Nini Schultz RN) documented in this encounter Orders Lab Orders Without Results Count Last Ordered D ate First Ordered Date POCT GLUCOSE 1 03/08/2016 documented in this encounter Care Teams Cordwood Cutter Helper Relationship Specialty Start Date End Date None, Provider PCP - General 03/08/16 08/21/18 documented as of this encounter
--- OUTSIDE RECORDS SUMMARY | 2024-05-31 00:49 | XMS_ITS | Encounter Summary ---
Author Organization [facility] Address [address] [place] [address] Care Team Providers Care Procedural Nurse Name Role Phone None, Provider Primary Care Provider Unavailabl e Reason for Visit * Reason Comments Cough Encounter Details Date Type Department Care Team (Latest Contact Info) Description 03/08/2016 14:28 EDT - 03/08/2016 16:55 EDT Hospital Encounter [facility] - [address] [address] Scar Marquez MD [address] [place] [phone] Unknown, Provider, Leukocytosis, unspecified type (Primary Dx); Sore throat; [...] - 03/08/2016 1654 EDT Report given to Will[facility] rescue patient transported to [facility] [...] the legs or lungs. She has used mwbb-kti-csiikaj Robitussin and Tylenol with little improvement. She [...] 09/04/201502/18, 08/19. Followed by Dr. López/[facility]ili[facility] in [facility] ??? Family history of rheumatoid arthritis 09/04/2015 Mother, pt with chronic back pain. Told arthritis in spine in teen yrs. ??? Type 2 diabetes mellitus 09/03/2015 Dx approx age 25. Controlled with lifestyle behaviors, wt loss. Had taken lantus in past 80u, Followed by endocrine in [facility]. Stopped few yrs ago until this past month. ??? Anxiety and depression 05/12/2010 Onset teen yrs. Treated with citalopram in approx 2012 - had SI, treated at [facility]. Marijuana prn to help with stress/anxiety sx. [...] Neg Neg Ketones Trace (A) Neg Specific [place] >=1.030 1.001 - 1.035 Blood 1+ (A) Neg pH 5.5 4.6 - 8.0 Protein Trace (A) Neg Urobilinogen 0.2 0.2 - 1.0 E.U./dl Nitrite Neg Neg Leuk Esterase Neg Neg Tech ID [id number] Radiology orders: None Imaging Results CHEST PA [...] preliminary report dictated by Dr. Madhuri Wolf, president of the united [place], and has not been finalized by an [...] preliminary report dictated by Dr. Madhuri Wolf, president of the [place], and has not been finalized by an [...] preliminary report dictated by Dr. Madhuri Wolf, president of the [place], and has not been finalized by an [...] other diagnoses. She is transferred to the [facility] emergency department now in stable [...] scale. Condition at departure from the [facility] : Stable MDM Signed: Scar Marquez MD 03/08/2016 16:48 * Naomi Ferrer, MARCELO - 03/08/2016 1442 EDT Patient reports sore [...] Shea RN - 03/08/2016 1433 EDT Bed: [facility] Expected date: Expected time: Means of arrival: [...] SCANNED (03/10/2016 9:47 EDT) 03/10/2016 9:47 EDT us Scan 2 Computer Art Instructor PROCEDURE/MINOR SURGICAL OR DERABLES Final Result * ED/URGENT CARE ADD-ON (03/09/2016 13:00 EDT) Tests to be added URINE TEST 03/09/2016 12:58 EDT [facility] Number for problems [id number] (URGENT CARE) 03/09/2016 12:58 EDT [facility] Comment:Performed at [facility], [place], [place] TOPOGRAPHY UNKNOWN / Unknown 03/09/2016 13:00 EDT 03/09/2016 13:07 EDT us Scar Marquez MD HEMATOLOGY & PF4 ORDERABLE S Final Result [facility] [address] [place] [address] * TEST, URINE (03/08/2016 16:25 EDT) Result- Test, Ur Neg Neg 03/09/2016 13:15 EDT [facility] Comment: NOTE: False negative results may occur in women who are beyond 5-8 weeks gestation. Diagnosis of should be based on a correlation of test results with typical clinical signs and symptoms. [facility] [place], [place] URINE / Unknown 03/08/2016 1 6:25 EDT 03/09/2016 13:06 EDT Scar Marquez MD URINALYSIS ORDERABLES Penny islas Result [facility] [address] [place] [address] * (ABNORMAL) URINE MICROSCOPIC ONLY (03/08/2016 16:25 EDT) WBC, UA less than 1 0 - 5 /HPF 03/08/2016 17:24 EDT [facility] RBC, UA less than 1 0 - 5 /HPF 03/08/2016 17:24 [facility] Squam Epithel, UA Many(A) None seen /HPF 03/08/2016 17:24 [facility] Renal Epithel, UA None seen None seen /HPF 03/08/2016 17:24 [facility] Bacteria, UA None seen None seen /HPF 03/08/2016 17:24 [facility] Crystals, UA None seen /HPF 03/08/2016 17:24 [facility] Hyaline Casts, UA None seen /LPF 03/08/2016 17:24 [facility] UA Comment Microscopic results 03/08/2016 16:31 [facility] Comment: are unreliable on urines unrefrig >2hrs or refrig >8hrs. Mucus, UA Present 03/08/2016 17:24 [facility] Comment:Performed at [facility] [place], [place] Urine specimen (specimen) URINE / Unknown 03/08/2016 16:25 EDT 03/08/2016 16:57 EDT Scar Marquez MD URINALYSIS ORDERABLES Penny l Result [facility] [address] [place] [address] * (ABNORMAL) POCT URINE DIPSTICK (03/08/2016 16:25 EDT) Color DARK YELLOW 03/08/2016 16:27 EDT [facility] Clarity, UA Clear 03/08/2016 16:27 EDT [facility] Glucose 2+(A) Neg 03/08/2016 16:27 EDT [facility] Bilirubin Neg Neg 03/08/2016 16:27 T [facility] Ketones Trace(A) Neg 03/08/2016 16:27 EDT [facility] Specific [place] >=1.030 1.001 - 1.035 03/08/2016 16:27 EDT [facility] Blood 1+(A) Neg 03/08/2016 16:27 EDT [facility] pH 5.5 4.6 - 8.0 03/08/2016 16:27 T [facility] Protein Trace(A) Neg 03/08/2016 16:27 EDT [facility] Urobilinogen 0.2 0.2 - 1.0 E.U./dl 03/08/2016 16:27 EDT [facility] Nitrite Neg Neg 03/08/2016 16:27 T [facility] Leuk Esterase Neg Neg 03/08/2016 16:27 EDT [facility] barrel burner ID [id number] 03/08/2016 16:27 T [facility] Comment:Test performed at [facility] Urine specimen (specimen) URINE / Unknown 03/08/2016 16:25 EDT 03/08/2016 16:27 EDT Scar Marquez MD POINT OF CARE TEST ORDERAB LES Final Result [facility] [address] [place] [address] * EKG 12-LEAD (03/08/2016 16:14 EDT) 03/08/2016 16:1 4 EDT Narrative [facility] E[facility] - 03/08/2016 16:24 EDT ? PC Site ? Test Date: ?2016-03-08 Pat Name: ? CRISTY TALBOT ? [facility] ? Room: ? 06 Gender: ? F ?Lead Mechanic: ?? : ?1985 ? Requested By: JOHNNY Alonzo Order Number: [id number] ? Sammie MARTÍNEZ: ?? SCAR MARQUEZ MD ? Measurements Intervals ?Everest ? Rate: ? 124 ?P: ?50 WV: ? 130 ?QRS: ?27 QRSD: ? 92 [...] Procedure Note Scar Marquez MD - 03/08/2016 Site Test Date: 2016-03-08 Pat Name: CRISTY TALBOT Department: [facility] Room: Gender: F Lead Mechanic: : 1985 Requested By: JOHNNY Alonzo Order Number: [id number] Sammie MD: SCAR MARQUEZ MD Measurements Intervals Everest Rate: 124 P: 50 WV: 130 QRS: 27 QRSD: 92 T: -14 [...] On 03-08-16 16:24:00 EDT by SCAR DEJESUS. us Scar Marquez MD CARDIAC ECG ORDERABLES Fin al Result [facility] E[facility] * CHEST PA AND [...] preliminary report dictated by Dr. Madhuri Wolf, president of the united [place], and has not been finalized by an [...] preliminary report dictated by Dr. Madhuri Wolf, president of the united [place], and has not been finalized by an attending radiologist. I have personally reviewed the images and the above interpretation and agree with the findings. us Scar Marquez MD IMG DIAGNOSTIC IMAGING ORD ERABLES Final Result * D-DIMER (03/08/2016 15:10 EDT) D-Dimer <200 <230 ng/mL 03/08/2016 15:50 T [facility] Comment: CUTOFF VALUE [...] cutoff for our specific assay. Performed at [facility], [place], [place] Blood specimen (specimen) BLOOD SPECIMEN / Unknown 03/08/2016 15:10 EDT 03/08/2016 15:38 EDT us Scar Marquez MD HEMATOLOGY & PF4 ORDERABLE S Final Result [facility] [address] [place] [address] * (ABNORMAL) COMPREHENSIVE METABOLIC PANEL (CMP) (03/08/2016 15:10 EDT) Potassium 4.5 3.5 - 5.0 mEq/L 03/08/2016 [...] 15:39 [facility] Comment:Performed at [facility], [place], [place] Blood specimen (specimen) BLOOD SPECIMEN / Unknown 03/08/2016 15:10 EDT 03/08/2016 15:38 EDT Scar Marquez MD CHEMISTRY & BLOOD GAS [facility] Final Result [facility] [address] [place] [address] * (ABNORMAL) HEMAGRAM AND DIFFERENTIAL (03/08/2016 15:10 [...] 0.43 0.03 - 0.61 K/cmm 03/08/2016 16:07 EDT [facility] Type of Diff: Manual 03/08/2016 16:07 EDT [facility] Comment:Performed at [place], [place] Blood specimen (specimen) BLOOD SPECIMEN / Unknown 03/08/2016 15:10 EDT 03/08/2016 15:38 EDT Scar Marquez MD PACKAGES & DNA PROBE ORDER HAILEY Final Result [facility] [address] [place] [address] * RAPID STREP (03/08/2016 14:40 EDT) Rapid Strep A Screen Neg 03/08/2016 15:09 EDT [facility] Comment:Performed at [place], [place] Specimen of unknown material (specimen) TOPOGRAPHY UNKNOWN / Unknown 03/08/2016 14:40 EDT 03/08/2016 14:58 EDT Scar Marquez MD MICROBIOLOGY - GENERAL ORD ERABLES Final Result Performing Organization Address [facility]/ZIP Co de Phone Number [facility] [address] [place] [address] * PHARYNGITIS CULTURE (03/08/2016 14:40 EDT) Result No group A beta streptococci isolated. Usual devin-pharyngeal candis. 03/10/2016 8:14 EDT [facility] Specimen of unknown material (specimen) ENTIRE THROAT / Unknown 03/08/2016 14:40 EDT 03/08/2016 19:07 EDT Comment:Specimen submitted o n a flocked swab. Scar Marquez MD MICROBIOLOGY - GENERAL ORD ERABLES Final Result Performing Organization Address City/[facility]/ZIP Co de Phone Number [facility] [address] [place] [address] documented in this encounter Visit Diagnoses Diagnosis [...] 1 dose, On 03/08/16 at 1515, Routine Given 03/08/2016 15:24 EDT 2.5 mg sodium chloride 0.9 % BOLUS 1,000 mL 1,000 mL, intravenous, NOW X1, 1 dose, On 03/08/16 at 1645, Routine New Bag 03/08/2016 16:56 [...] 1656 (New Bag - Prov ider: Naomi Ferrer, MARCELO) documented in this encounter Orders Nursing Count Last Ordered Date First Orde red Date PULSE OXIMETRY 1 03/08/2016 documented in this encounter Care Teams Procedural Nurse Relationship Specialty Start Date End Date None, Provider PCP - General 03/08/16 08/21/18 documented as of this encounter
--- OUTSIDE RECORDS SUMMARY | 2024-05-31 00:49 | XMS_ITS | Encounter Summary ---
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 * Attachments The following attachments cannot be sent through Care Everywhere. * LUMBAR PAIN: ACUTE: EXERCISES (TURKISH) documented in this encounter Medications at Time [...] no acute distress with . * Niesha Trejo RN - 09/28/20162057 EDT supportive at BS. Awaiting [...] STAT 2127 (Patch Applied - Provider: Niesha Neil, RN - Comment: left lower back) documented in this encounter Care Teams Wool Classer Relationship Specialty Start Date End Date None, Provider PCP - General 03/08/16 08/21/18 documented as of this encounter
--- OUTSIDE RECORDS SUMMARY | 2024-05-31 00:49 | XMS_ITS | Encounter Summary ---
Author Organization [facility] Address [address] [place] [address] Care Team Providers Care Food Scientist Name Role Phone Madeline Caputo Primary Care Provider [phone] Reason for Visit * Reason Comments Blood Sugar Problem NPD Encounter Details Date Type Department Care Team (Latest Contact Info) Description 05/12/2010 15:[address] [facility] Endocrinology - [facility] [address] [place], [place] [id number] Fermin Srinivasan MD [address] [place] [address] [address] [place] [address] Diabetes (CMS-HCC) ([facility]) (Primary Dx); Obesity, unspecified Social History [...] - 05/12/2010 17:03 EST Recent A1c from [facility] 7.7%. Goal will be less [...] Refills Last Filled Start Date End Date glimepiride (AMARYL) 2 [...] other times similar or higher. Went to [facility] ER 05/10/10 because of BG [...] 4 siblings, knows about 2, noDM. 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 Very unusual alcohol Activity - [...] tryand work on lifestyle. Seeing dietition ion [facility] next week. Will come back in June. If continues with inadequate control, will consider GLP-1 receptor agonist versus basal insulin. Would not suggest TZD, as potential for weight gain in her is considerable. Plan: Recent A1c from [facility] 7.7%. Goal will be less [...] A1C Point of Care Testing Routine Diabetes ([facility]) ([facility]) Ordered: 05/12/2010 documented as of this encounter Visit Diagnoses Diagnosis Diabetes ([facility])- Primary Type II or unspecified type diabetes mellitus without mention of complication, not stated as uncontrolled Obesity, unspecified documented in this encounter Care Teams Food Scientist Relationship Specialty Start Date End Date Madeline Caputo PA [address] [place] [address] PCP - General 05/10/10 12/31/14 documented as of this encounter
--- OUTSIDE RECORDS SUMMARY | 2024-05-31 00:49 | XMS_ITS | Encounter Summary ---
Author Organization [facility] Address [address] [place] [address] Care Team Providers Care Assistant Professor Of Business Name Role Phone None, Provider Primary Care Provider Unavailabl e Reason for Visit * Reason Onset Date Comments Follow-up 07/20/2016 Results 07/20/2016 Encounter Details Date Type Department Care Team (Late st Contact Info) Description 07/20/2016 Telephone [facility] Urgent Care - [address] [phone] Moy Marquez MD [address] [place] [phone] Follow-up; Results Social History Tobacco Use Types [...] Encounter - Moy Marquez MD - 07/24/2016 5027 EST Called and spoke to patient follow up with recent visit. She notes that cyst has improved. I discussed that her hemoglobin A1c is quite elevated at 11.2, indicating that she does have poorlycontrolled diabetes. We had prescribed metformin for her to resume- she plans to olive picker today. She will likely need further agents. She does have a follow-up appointment in three days with the [facility] to establish care. I strongly encouraged [...] filedocumented in this encounter Care Teams Assistant Professor Of Business Relationship Specialty Start Date End Date None, Provider PCP - General 03/08/16 08/21/18 documented as of this encounter
--- OUTSIDE RECORDS SUMMARY | 2024-05-31 00:49 | XMS_ITS | Encounter Summary ---
Author Organization [facility] Address [address] [place] [address] Care Team Providers Care Rescue Worker Name Role Phone None, Provider Primary Care Provider Unavailabl e Encounter Details Date Type Department Care Team ([facility] st Contact Info) Description 07/23/2015 10:49 EST - 07/23/2015 10:50 EST Hospital Encounter [address] [address] Robyn Bautista MD [address] [place] [phone] Discharge Disposition: Home or Self Care Social [...] filedocumented in this encounter Care Teams Rescue Worker Relationship Specialty Start Date End Date None, Provider PCP - General 01/01/15 08/27/15 documented as of this encounter
--- OUTSIDE RECORDS SUMMARY | 2024-05-31 00:49 | XMS_ITS | Encounter Summary ---
Author Organization [facility] Address [address] [place] [address] Care Team Providers Care Color Corrector Name Role Phone None, Provider Primary Care Provider Unavailabl e Encounter Details Date Type Department Care Team (Late st Contact Info) Description 02/11/2015 13:08 EDT - 02/11/2015 13:09 EDT Hospital Encounter [address] [address] Alaina Miranda, [address] [phone] Sunday Miranda MD [address] [place] [phone] [...] on filedocumented in this encounter Care Teams Color Corrector Relationship Specialty Start Date End Date None, Provider PCP - General 01/01/15 08/27/15 documented as of this encounter
--- OUTSIDE RECORDS SUMMARY | 2024-05-31 00:49 | XMS_ITS | Encounter Summary ---
Author Organization [facility] Address [address] [place] [address] Care Team Providers Care Land Department Head Name Role Phone None, Provider Primary Care [...] 15:27 EDT - 02/24/2015 20:58 EDT Emergency [facility] Emergency Department - [address] [address] Sonal Rand, MARY [address] [phone] Broderick Singh MD [address] [place] [address], [address] [place] [address] Chilo Carrillo MD Emergency, MD [...] 20:40 EDT Rest Lots liquids See the aeronautical engineering teacher doctor in 2 days as planned Return [...] on 01/19 and positive UPT at [facility] the next week. She initiated care at [facility] 2 weeks ago and was told that the fetus had no heartbeat but was measuring 7 weeks. She wanted a second opinion so she went to [facility] on 02/14 where she was [...] Grandmother ??? Diabetes Paternal Grandfather OB History SECOND VP HR ASSESSMENT History OB History Para Term AB SAB [...] examined with Dr. Michael Emanuel MD PGY-1 [facility] Obstetrics and Gynecology Pager: [phone] Brii Austin MD 02/24/2015 20:22 Attending addendum: [...] with ob in 2 days * Carline Luna, MARCELO - 02/24/2015 2055 EDT This RN present for pt's D+C by SECOND VP HR ASSESSMENT. Pt monitored for 1 hr s/p procedure. [...] ER. Pt to f/u with PCP and SECOND VP HR ASSESSMENT. * Carline Luna RN - 02/24/2015 1921 EDT Assumed care of pt. Pt tearful, family at bedside. VSS. Pt with no c/o pain or nausea at this time.Apical reg, LCTA, RR even/reg. BS present. Cap refill <2 secs. Call calloway within reach. No statedneeds at this time. * Doris Balderas RN - 02/24/2015 1844 EDT Bird Tender surgery services at bedside now discussing findings and plan of care. * Doris Balderas RN - 02/24/2015 1757 EDT Taken for US. * Doris Balderas RN - 02/24/2015 1732 EDT Pad change x 2 this hour for large amount vaginal bleeding with large clots. Bird Tender services in to evaluate-at bedside now. * [...] pending. ivf's infusing now. S/o at bedside. Bird Tender at bedside now. * Broderick Singh MD [...] ago. At that time, she visited her corduroy brusher operator and was informed that she was 7 weeks , and that her baby had a no heartbeat. For a second evaluation at that time, the patient visited [facility], and was informed that her baby's heart beat was slow. The patient reports that spotting began again 1 week ago (Tuesday) at which time she returned to [facility] and was informed that her [...] Specimen will be held for 5 days. ED/WICC ADD-ON Tests to be added TYPE AND SCREEN Final Number for problems [id number] (ED) Final BLOOD BANK SPECIMEN HOLD Hold BB Spec will exp at 23:59, 3 days from collect date Final TYPE AND SCREEN ABO B Final Rh Factor Negative Final Antibody Screen Positive Final Specimen Expires: 02/27/2015 @ 23:59 Final DIRECT ANTIGLOBULIN TEST LIZZIE Negative Final PREPARE RED BLOOD CELLS Product Code E0336 -1 RED BLOOD CELLS, Leukocytes Reduced Final Donor Number [id number] Final Unit ABO B Final Unit Rh [...] ordered. Seen in the ED by the SECOND VP HR ASSESSMENT service. Care is signed out to Dr. Carrillo at 17:10 with SECOND VP HR ASSESSMENT evaluation inprogress. ASSESSMENT AND PLAN Final diagnoses: [...] found. * Jose Thompson RN - 02/24/2015 1535 EDT Chief Complaint Patient presents with ??? [...] E0336 -1 RED BLOOD CELLS, Leukocytes Reduced [facility] Donor Number [id number] [facility] Unit ABO B [facility] B[facility] Unit Rh NEG [facility] Cross Match Interp Compatible [facility] Unit Status Released From Crossmatch [facility] 02/24/2015 18:4 7 EDT us Chilo Carrillo MD BLOOD BANK ORDERABLES Final Result [facility] [address] [facility] [place] [address] * DIRECT ANTIGLOBULIN TEST (02/24/2015 18:47 EDT) LIZZIE Negative [facility] 02/24/2015 18:4 7 EDT us Chilo Carrillo MD BLOOD BANK TESTS Final Resu lt Performing Organization Address [facility] Co de Phone Number [facility] [address] [place] [address] * ANTIBODY IDENTIFICATION (02/24/2015 18:45 EDT) Antibody Identification Anti-D; patient recd RhIg [facility] 02/24/2015 18:4 5 EDT us Chilo Carrillo MD BLOOD BANK TESTS Final Resu lt Performing Organization Address [facility] de Phone Number [facility] [address] [facility] [place] [address] * RAD US PELVIS, TRANSVAGINAL, AND LIMITED DOPPLER (02/24/2015 18:21 EDT) Anatomical Region Laterality Modality Other 02/24/2015 18:2 1 EDT 02/25/2015 8:55 EDT Narrative 02/25/2015 8:55 EDT RAD US PELVIS, TRANSVAGINAL, AND LIMITED DOPPLER ??02/24/2015 6:21 PM Signs and Symptoms/Comments: ??reported IUP per aeronautical engineering teacher which was then found in past wk to be non viable, est at 9 wks and now with increased bleeding and abd pain ??US requested by aeronautical engineering teacher Comparison: Pelvic ultrasound October 2006 Technique: Grayscale [...] PM Signs and Symptoms/Comments: reported IUP per aeronautical engineering teacher which was then found in past wk to be non viable, est at 9 wks and now with increased bleeding and abd pain US requested by aeronautical engineering teacher Comparison: Pelvic ultrasound October 2006 Technique: Grayscale [...] interpretation and agree with the findings. us Chilo Carrillo MD IMG US ORDERABLES Final Res ult * TYPE AND SCREEN (02/24/2015 17:30 EDT) ABO B [facility] Rh Factor Negative [facility] Antibody Screen Positive [facility] Specimen Expires: 02/27/2015 @ 23:59 [facility] Blood specimen (specimen) 02/24/2015 17:30 EDT us Chilo Carrillo MD BLOOD BANK TESTS Final Resu lt Performing Organization Address City/[facility]/ZIP Co de Phone Number [facility] [address] [place] [address] * ED/WICC ADD-ON (02/24/2015 17:30 EDT) Tests to be added TYPE AND SCREEN 02/24/2015 17:28 EDT [facility] Number for problems [id number] (ED) 02/24/2015 17:28 EDT [facility] TOPOGRAPHY UNKNOWN / Unknown 02/24/2015 17:30 EDT 02/24/2015 18:01 EDT us Chilo Carrillo MD HEMATOLOGY & PF4 ORDERABLES Final Result [facility] [address] [place] [address] * HOLD GREEN TOP (02/24/2015 16:00 EDT) Hold Green Top Hold for further testing. Specimen will be held for 5 days. 02/24/2015 16:18 EDT [facility] Blood specimen (specimen) BLOOD SPECIMEN / Unknown 02/24/2015 16:00 EDT 02/24/2015 16:07 EDT us Sonal A Giorgi PA-C LAB INFO SERVICE AND SUPPOR T & PHONE RESULT Final Result Performing Organization Address City/[facility]/ZIP Co de Phone Number [facility] [address] [place] [address] * BLOOD BANK SPECIMEN HOLD (02/24/2015 16:00 EDT) Hold BB Spec will exp at 23:59, 3 days from collect date [facility] Blood specimen (specimen) 02/24/2015 16:00 EDT us Sonal A Giorgi PA-C BLOOD BANK TESTS Final Resu lt Performing Organization Address [facility]/ZIP Co de Phone Number [facility] [address] [place] [address]. [place] [address] * HOLD SST (02/24/2015 16:00 EDT) Hold SST Hold for further testing. Specimen will be held for 5 days. 02/24/2015 16:18 EDT [facility] Blood specimen (specimen) BLOOD SPECIMEN / Unknown 02/24/2015 16:00 EDT 02/24/2015 16:07 EDT us Sonal A Giorgi PA-C LAB INFO SERVICE AND SUPPOR T & PHONE RESULT Final Result Performing Organization Address [facility] Co de Phone Number [facility] [address] [place] [address] * HOLD BLUE TOP (02/24/2015 16:00 EDT) Hold Blue Top Sample for coagulation will be discarded after 4 hours 02/24/2015 16:20 EDT [facility] Blood specimen (specimen) BLOOD SPECIMEN / Unknown 02/24/2015 16:00 EDT 02/24/2015 16:07 EDT us Sonal A Giorgi PA-C LAB INFO SERVICE AND SUPPOR T & PHONE RESULT Final Result Performing Organization Address City/[facility]/ZIP Co de Phone Number [facility] [address] [place] [address] * (ABNORMAL) HEMAGRAM AND DIFFERENTIAL (02/24/2015 16:00 EDT) WBC 17.81(H) 4.0 - 12.4 K/cmm 02/24/2015 16:11 [facility] RBC 4.36 3.86 - 5.04 M/cmm 02/24/2015 16:11 [facility] Hemoglobin 13.6 11.6 - 15.2 gm/dl 02/24/2015 16:11 [facility] HCT 39.5 34.9 - 44.4 % 02/24/2015 16:11 [facility] MCV 91 81 - 98 fl 02/24/2015 16:11 [facility] MCH 31.1 26.7 - 33.3 pg 02/24/2015 16:11 [facility] MCHC 34.3 32.1 - 35.9 gm/dl 02/24/2015 16:11 [facility] RDW-CV 12.6 11.7 - 14.6 % 02/24/2015 16:11 [facility] RDW-SD 39.8 37.6 - 50.3 fl 02/24/2015 16:11 [facility] PLT 383(H) 141 - 320 K/cmm 02/24/2015 16:11 [facility] MPV 8.0 7.5 - 11.2 fl 02/24/2015 16:11 [facility] Neutrophils 68.0 45.5 - 79.7 % 02/24/2015 16:54 [facility] Lymphocytes 21.0 15.0 - 46.8 % 02/24/2015 16:54 [facility] % Atyp Lymphs 2.0 % 02/24/2015 16:54 [facility] Monocytes 6.0 1.8 - 12.0 % 02/24/2015 16:54 [facility] Eosinophils 2.0 0.6 - 6.9 % 02/24/2015 16:54 [facility] Basophils 1.0 0.2 - 1.4 % 02/24/2015 16:54 EDT [facility] ABS Neutrophils 12.10(H) 2.20 - 8.85 K/cmm 02/24/2015 16:54 EDT [facility] ABS Lymphs 3.74(H) 1.09 - 3.30 K/cmm 02/24/2015 16:54 EDT [facility] ABS Atyp Lymphs 0.36 K/cmm 5 16:54 T [facility] ABS Monocytes 1.07(H) 0.1 - 0.8 K/cmm 02/24/2015 16:54 T [facility] ABS Eosinophils 0.36 0.03 - 0.61 K/cmm 02/24/2015 16:54 T [facility] ABS Basophils 0.18(H) 0.01 - 0.11 K/cmm 02/24/2015 16:54 T [facility] Vacuolization Present 02/24/2015 16:54 T [facility] Type of Diff: Manual 02/24/2015 16:54 [facility] Blood specimen (specimen) BLOOD SPECIMEN / Unknown 02/24/2015 16:00 EDT 02/24/2015 16:07 EDT us Sonal Rand PA-C PACKAGES & DNA PROBE ORDERA BLES Final Result Performing Organization Address City/State/[facility] Co de Phone Number [facility] [address] [place] [address] * SURGICAL PATHOLOGY (02/24/2015 9:01 EDT) Pathology Report: SURGICAL PATHOLOGY REPORT Reports generated via electronic interface contain original data; however they are lacking the format of the original report. Caution should be taken when reading/interpret ing unformatted reports. Name: ? CRISTY MONTELONGO ? Accession #: ? [id number] ? : ? 1985 (Age: 29) ??F [...] Cruz 02/25/2015 11:33 AM End of Report [facility] 02/24/2015 9:01 EDT 02/24/2015 9:01 EDT us Sonal Rand PA-C PATHOLOGY ORDERABLES Final Result [facility] [address] [place] [address] documented in this encounter Visit Diagnoses Diagnosis [...] Ordered Date ceFAZolin (ANCEF) 1 gram injection 2014 HYDROmorphone (PF) (DILAUDID ) 1 mg/mL injection 1 02/24/2015 Nursing Count Last Ordered Date First Orde red Date INSERT PERIPHERAL IV 02/24/2015 SPECIMEN TO PATHOLOGY 02/24/2015 documented in this encounter Care Teams Land Department Head Relationship Specialty Start Date End Date None, Provider PCP - General 01/01/15 08/27/15 documented as of this encounter
--- OUTSIDE RECORDS SUMMARY | 2024-05-31 00:49 | XMS_ITS | Encounter Summary ---
Author Organization [facility] Address [address] [place] [address] Care Team Providers Care Brief Writer Name Role Phone None, Provider Primary Care Provider Unavailabl e Reason for Visit * Reason Onset Date Comments Other 07/30/2016 Encounter Details Date Type Department Care Team (Late st Contact Info) Description 07/30/2016 Telephone [facility] Ophthalmology - [address] [phone] Broderick Schwartz MD [address] [facility], [address] [place] [address] Other Social History Tobacco Use [...] Telephone Encounter - Catherine Dhillon RN - 07/30/2016 6659 EST Tried one more time, still no go. Placed letter in mail today. [phone] Called pt. She states if fax will not go through can mail to her. Verified address. Stated will try one more time but if it does not go through will place in mail today. She verbalized understanding and had no further questions. Faxed letter to # below. Tried two times however fax will not go through. * Telephone Encounter - Naomi Kim - 07/30/2016 1417 EST Patient was seen today and needs a letter faxed to work: [phone]. Just needs to state she had an appointment here today with Dr Schwartz @ 12:30. documented in this encounter Plan of Treatment Not on file documented as of this encounter Visit Diagnoses Not on filedocumented in this encounter Care Teams Brief Writer Relationship Specialty Start Date End Date None, Provider PCP - General 03/08/16 08/21/18 documented as of this encounter
--- OUTSIDE RECORDS SUMMARY | 2024-05-31 00:49 | XMS_ITS | Encounter Summary ---
Author Organization [facility] Address [address] [place] [address] Care Team Providers Care Computer Language Coder Name Role Phone None, Provider Primary Care Provider Unavailabl e Reason for Visit * Reason Comments Abscess Encounter Details Date Type Department Care Team (Latest Contact Info) Description 07/15/2016 11:37 EST - 07/15/2016 14:25 EST Hospital Encounter [facility] - [address] [id number] Moy Marquez MD [address] [place] [phone] Unknown, Provider, Perianal abscess (Primary Dx); Nausea and vomiting, intractability of vomiting not specified, unspecified vomiting type; Type 2 diabetes mellitus with complication, unspecified assisted insulin use status ([facility]) Discharge Disposition: Home or Self [...] 14:19 EST For your perianal abscess, take [id number] Tylenol (acetaminophen) as needed for pain. Keep [...] sent through Care Everywhere. * PERIRECTAL ABSCESS (ZIMBABWEAN) documented in this encounter Medications at Time [...] will look into following up at the [facility]. Certainly follow up acutely as needed otherwise. [...] UA Clear Final Bilirubin Neg Final Specific Manley 1.015 Final pH 5.5 Final Urobilinogen 0.2 Final Nitrite Neg Final Tech ID [id number] Final POCT GLUCOSE - Normal Glucose, POC [...] a primary care doctor; recommenda tion for [facility] was made which the patient was amenable to. Plan: Perirectal abscess - s/p I&D with no purulence expressed - CBC and Diff Diabetes, type 2 - Hemoglobin A1C - BMP - metformin 500 mg BID Follow-up with [facility] DISPOSITION: Discharged The patient's pain was managed to an adequate level weighing risk vs. benefit of further medications. Upon departure from the Emergency Department, the patient's pain was 2 on a zero to ten scale. Condition at departure from the Emergency Department: Stable PCP: Provider None [facility] 07/15/2016 14:10 No flowsheet data found. 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 Comment: Reference Range: <5.7% Normal 5.7-6.4% Increased risk for diabetes =>6.5% Diagnostic for diabetes (if confirmed) The A1c goal for non adults in general is <7%. The A1c goal for selected patients may be significantly lower than 7% if this can be achieved without significant hypoglycemia or other adverse effects of treatment. Est Avg Glucose 275 mg/dl 7 11:[address] [facility] Comment: eAG represents the A1c result expressed as average glucose in mg/dl. Blood specimen (specimen) BLOOD SPECIMEN / Unknown 07/15/2016 13:18 EST 07/15/2016 13:28 EST us Callum Vicente MD MPH CHEMISTRY & BLOOD GAS ORD ERABLES Final Result [facility] [address] [place] [address] * (ABNORMAL) HEMAGRAM AND DIFFERENTIAL (07/15/2016 13:11 EST) WBC 12.30 4.0 - 12.4 K/cmm 07/15/2016 13:30 [facility] RBC 4.88 3.86 - 5.04 M/cmm 07/15/2016 13:30 [facility] Hemoglobin 15.2 11.6 - 15.2 gm/dl 07/15/2016 13:30 [facility] HCT 42.1 34.9 - 44.4 % 07/15/2016 13:30 [facility] MCV 86 81 - 98 fl 07/15/2016 13:30 [facility] MCH 31.1 26.7 - 33.3 pg 07/15/2016 13:30 [facility] MCHC 36.1(H) 32.1 - 35.9 gm/dl 07/15/2016 13:30 [facility] RDW-CV 12.5 11.7 - 14.6 % 07/15/2016 13:30 [facility] RDW-SD 38.5 37.6 - 50.3 fl 07/15/2016 13:30 [facility] PLT 331 141 - 377 K/cmm 07/15/2016 13:30 [facility] MPV 9.5 9.5 - 12.7 fl 07/15/2016 13:30 [facility] % Neutrophils 72.6 % 07/15/2016 13:30 [facility] % Lymphocytes 18.7 % 07/15/2016 13:30 [facility] % Monocytes 7.8 % 07/15/2016 13:30 [facility] % Eosinophils 0.7 % 07/15/2016 13:30 [facility] % Basophils 0.2 % 07/15/2016 13:30 [facility] ABS Neutrophils 8.93(H) 2.20 - 8.85 K/cmm 07/15/2016 13:30 [facility] ABS Lymphs 2.30 1.09 - 3.30 K/cmm 07/15/2016 13:30 [facility] ABS Monocytes 0.96(H) 0.1 - 0.8 K/cmm 07/15/2016 13:30 [facility] ABS Eosinophils 0.09 0.03 - 0.61 K/cmm 07/15/2016 13:30 [facility] ABS Basophils 0.02 0.01 - 0.11 K/cmm 07/15/2016 13:30 [facility] Type of Diff: Automated 07/15/2016 13:30 [facility] Comment:[facility] [place] [place] Blood specimen (specimen) BLOOD SPECIMEN / Unknown 07/15/2016 13:11 EST 07/15/2016 13:27 EST us Callum Vicente MD MPH PACKAGES & DNA PROBE MURPHYE CHANTEL Final Result [facility] [address] [place] [address] * (ABNORMAL) BASIC METABOLIC PANEL (07/15/2016 13:11 EST) Sodium 138 136 - 145 mEq/L 07/15/2016 14:01 [facility] Potassium 4.2 3.5 - 5.0 mEq/L 07/15/2016 14:01 [facility] Chloride 101 96 - 110 mEq/L 07/15/2016 14:01 [facility] CO2 27 22 - 32 mEq/L 07/15/2016 14:01 [facility] Comment:Note new reference r masoud 03/23/16 BUN 9(L) 10 - 26 mg/dl 07/15/2016 14:01 [facility] Creatinine 0.40(L) 0.52 - 1.04 mg/dl 07/15/2016 14:01 [facility] GFR, Calculated 139 >60 ml/min/1.7 3m2 07/15/2016 14:01 [facility] Comment: eGFR calculated using CKD-EPI equation for non Americans. Multiply eGFR by 1.16 for Americans. Calcium 9.2 8.5 - 10.5 mg/dl 07/15/2016 14:01 [facility] Calculated Calcium 9.4 8.5 - 10.5 mg/dl 07/15/2016 14:01 [facility] Comment: Note new formula for calculation in use 03/10/2016 Glucose, Serum 246(H) 70 - 100 mg/dl 07/15/2016 14:01 [facility] Fasting? Unknown 07/15/2016 13:27 [facility] Comment:Performed at [place], [place] Blood specimen (specimen) BLOOD SPECIMEN / Unknown 07/15/2016 13:11 EST 07/15/2016 13:27 EST Callum Vicente MD MPH CHEMISTRY & BLOOD GAS ORD ERABLES Final Result [facility] [address] [place] [address] * (ABNORMAL) POCT GLUCOSE (07/15/2016 12:28 EST) Glucose, POC 221(A) 70 - 100 mg/dL [facility] Blood specimen (specimen) 07/15/2016 12:28 EST us Callum Vicente MD MPH POINT OF CARE TEST ORDERA BLES Final Result Performing Organization Address City/[facility]/ZIP Co de Phone Number [facility] [place] [address] * (ABNORMAL) URINALYSIS MICROSCOPIC ONLY (07/15/2016 12:06 EST) WBC, UA less than 1 0 - 5 /HPF 07/15/2016 12:43 [facility] RBC, UA 1 to 5 0 - 5 /HPF 07/15/2016 12:43 [facility] Squam Epithel, UA Many(A) None seen /HPF 07/15/2016 12:43 [facility] Renal Epithel, UA None seen None seen /HPF 07/15/2016 12:43 [facility] Bacteria, UA Rare(A) None seen /HPF 07/15/2016 12:43 [facility] Crystals, UA None seen /HPF 07/15/2016 12:43 [facility] Hyaline Casts, UA None seen /LPF 07/15/2016 12:43 [facility] UA Comment Microscopic results 07/15/2016 12:13 [facility] Comment: are unreliable on urines unrefrig >2hrs or refrig >8hrs. Mucus, UA Present 07/15/2016 12:43 [facility] Comment:Performed at [facility] [place], [place] Urine specimen (specimen) URINE / Unknown 07/15/2016 12:06 EST 07/15/2016 12:17 EST Moy Marquez MD URINALYSIS ORDERABLES Penny l Result Performing Organization Address City/[facility] Co de Phone Number [facility] [address] [place] [address] * TEST, URINE (07/15/2016 12:06 EST) Result- Test, Ur Neg Neg 07/15/2016 12:40 [facility] Comment: NOTE: False negative results may occur in women who are beyond 5-8 weeks gestation. Diagnosis of should be based on a correlation of test results with typical clinical signs and symptoms. Performed [place] Urine specimen (specimen) URINE / Unknown 07/15/2016 12:06 EST 07/15/2016 12:16 EST Moy Marquez MD URINALYSIS ORDERABLES Penny l Result [facility] [address] [place] [address] * (ABNORMAL) POCT URINE DIPSTICK (07/15/2016 12:06 EST) Color YELLOW 07/15/2016 12:11 [facility] Clarity, UA Clear 07/15/2016 12:11 [facility] Glucose 2+(A) Neg 07/15/2016 12:11 [facility] Bilirubin Neg Neg 07/15/2016 12:11 [facility] Ketones 1+(A) Neg 07/15/2016 12:11 [facility] Specific Manley 1.015 1.001 - 1.035 07/15/2016 12:11 [facility] Blood 3+(A) Neg 07/15/2016 12:11 [facility] pH 5.5 4.6 - 8.0 07/15/2016 12:11 [facility] Protein Trace(A) Neg 07/15/2016 12:11 [facility] Urobilinogen 0.2 0.2 - 1.0 E.U./dl 07/15/2016 12:11 [facility] Nitrite Neg Neg 07/15/2016 12:11 [facility] Leuk Esterase Trace(A) Neg 07/15/2016 12:11 [facility] ux visual designer ID [id number] 07/15/2016 12:11 [facility] Comment:Test performed at [facility] Urine specimen (specimen) URINE / Unknown 07/15/2016 12:06 EST 07/15/2016 12:11 EST Moy Marquez MD POINT OF CARE TEST ORDERAB LES Final Result Performing Organization Address City/State/[facility] Co de Phone Number [facility] [address] [place] [address] documented in this encounter Visit Diagnoses Diagnosis Perianal abscess- Primary Abscess of anal and rectal regions Nausea and vomiting, intractability of vomiting not specified, unspecified vomiting type Type 2 diabetes mellitus with complication, unspecified assisted insulin use status documented in this encounter [...] documented as of this encounter Care Teams Computer Language Coder Relationship Specialty Start Date End Date None, Provider PCP - General 03/08/16 08/21/18 documented as of this encounter
--- OUTSIDE RECORDS SUMMARY | 2024-05-31 00:50 | XMS_ITS | Encounter Summary ---
Author Organization [facility] Address [address] [place] [address] Care Team Providers Care Causticiser Name Role Phone Unavailable Primary Care Provider Unavailabl e Encounter Details Date Type Department Care Team (Late st Contact Info) Description 12/22/2005 11:00 EDT Hospital Encounter [facility] [address] [place] [address] Fermin Lovett MD Social History Tobacco Use Types Packs/Day Years Used Date Smoking Tobacco: Every Day Cigarettes 0.5 13.6 Started: 11/10/2010 Smokeless Tobacco: Never Comments:06/13/20 actively try ing to quit about 5-8 cigs/day Alcohol Use Standard Drinks/Week Comments Yes 0 (1 standard drink = 0.6 oz pur e alcohol) rarely C Utilities Answer Date Recorded In the past 12 months has [employer], gas, oil, or water [employer] threatened to shut off services in your [...] your living situation today? I have a [facility] [place] place to live 04/03/2024 Think about the [...]
--- OUTSIDE RECORDS SUMMARY | 2024-05-31 00:50 | XMS_ITS | Encounter Summary ---
Author Organization [facility] Address [address] [place] [address] Care Team Providers Care Counter Maker Name Role Phone Unavailable Primary Care Provider Unavailabl e Encounter Details Date Type Department Care Team (Late st Contact Info) Description 04/11/2004 Office Visit [facility] [place] [facility] [address] [place] [address] Josh Coelho, EUNICE-C [address] [facility] [place] [id number] Social History Tobacco Use Types Packs/Day Years Used Date Smoking Tobacco: Never Assessed Comments Unknown Sex and Gender Information Value Date Recorded [...] PROGRESS AND PROCEDURES E.D. Course: gc and mcymfifi cx pending, pt very comfortable throughout all [...] Discharge instructions reviewed with the patient and semiconductor processing technician. Warnings reviewed. Reviewed medication. Treatments reviewed. Reviewed referrals. Patient and semiconductor processing technician verbalized understanding. The patient was discharged home and accompanied by semiconductor processing technician. The patient left the Emergency Department ambulatory and via private vehicle. Patient has no belongings. --15:23 Rob Gould R.N., R.N. Locked/Released at 04/11/2004 23:18 by Fermin Millan R.N. documented in this encounter Plan of Treatment Not on file documented as of this encounter Visit Diagnoses Not on filedocumented in this encounter
--- OUTSIDE RECORDS SUMMARY | 2024-05-31 00:50 | XMS_ITS | Encounter Summary ---
Author Organization [facility] Address [address] [place] [address] Care Team Providers Care Parking Lot Signaler Name Role Phone Unavailable Primary Care Provider Unavailabl e Encounter Details Date Type Department Care Team (Late st Contact Info) Description 09/27/2006 9:23 EDT Hospital Encounter [facility] [place] [facility] [address] [place] [address] Fermin Lovett MD Social History Tobacco Use Types Packs/Day Years Used Date Smoking Tobacco: Every Day Cigarettes 0.5 13.6 Started: 11/10/2010 Smokeless Tobacco: Never Comments:06/13/20 actively try ing to quit about 5-8 cigs/day Alcohol Use Standard Drinks/Week Comments Yes 0 (1 standard drink = 0.6 oz pur e alcohol) rarely C Utilities Answer Date Recorded In the past 12 months has [employer], gas, oil, or water [employer] threatened to shut off services in your [...] the past 12 months has th e [employer], gas, oil, or water company threatened to [...] * (ABNORMAL) SED. RATE:MARLYN (09/27/2006 10:36 EDT) Sed. Rate Fabienlinda 47(H) 0 - 20 mm/hr [facility] Comment: Note: Sample greater than 4 hrs old (but less than 12 hrs) when tested. If refrigerated, sample is stable when tested within 12 hours of collection. 09/27/2006 10:3 6 EDT 09/27/2006 16:29 EDT Fermin Lovett MD HEMATOLOGY & PF4 ORDER HAILEY Final Result [facility] [address] [place] [address] * (ABNORMAL) COMPREHENSIVE METABOLIC PANEL (09/27/2006 10:36 EDT) Pathologist [facility] [place] Potassium 4.3 3.5 - 5.0 mEq/L [facility] [...] mg/dl [facility] Fasting? Yes [facility] WILL[facility]BY Albumin/Globulin Ratio 1.6 [facility] 09/27/2006 10:3 6 EDT 09/27/2006 16:29 EDT Fermin Lovett MD CHEMISTRY & BLOOD GAS ORDERABLES Final Result [facility] [address] [place] [address] * (ABNORMAL) HEMAGRAM AND DIFFERENTIAL (09/27/2006 10:36 [...] ABS Eosinophils 0.10 0.03 - 0.61 K/cmm [facility] ABS Basophils 0.04 0.01 - 0.11 K/cmm [facility] Type of Diff: Automated [facility] 09/27/2006 10:3 6 EDT 09/27/2006 16:29 EDT Fermin Lovett MD PACKAGES & DNA PROBE O RDERABLES Final Result [facility] [address] [place] [address] documented in this encounter Visit Diagnoses Not on filedocumented in this encounter Additional Health Concerns Infection Onset Date Last Indicated Resolved Time R/O COVID-19 08/04/2020 08/04/2020 08/04/2020 11:4 0 EST documented as of this encounter
--- OUTSIDE RECORDS SUMMARY | 2024-05-31 00:50 | XMS_ITS | Encounter Summary ---
Author Organization [facility] Address [address] [place] [address] Care Team Providers Care Sewing Machine Operator Zipper Name Role Phone Unavailable Primary Care Provider Unavailabl e Encounter Details Date Type Department Care Team (Latest Contact Info) Description 01/10/2006 10:03 EDT - 01/10/2006 11:59 EDT Hospital Encounter [facility] [place] [facility] [address] [place] [address] Myles Jackson Discharge Disposition: Auto Discharge Social [...] an infused apophysis. D 01/10/06 T 01/11/06 /reemdios Procedure Note Danyell Salgado MD - 12/21/2008 [...] apophysis. D 01/10/06 T 01/11/06 /remedios Myles Jackson Rubia DIAGNOSTIC IMAGING ORDERABLE S Final Result * FOOT 3 OR MORE VIEWS (01/10/2006 [...] apophysis. D 01/10/06 T 01/11/06 /remedios Myles Jackson IM DIAGNOSTIC IMAGING ORDERABLE S Final Result documented in this encounter Visit Diagnoses Not on filedocumented in this encounter
--- OUTSIDE RECORDS SUMMARY | 2024-05-31 00:50 | XMS_ITS | Encounter Summary ---
Author Organization [facility] Address [address] [place] [address] Care Team Providers Care Salesperson Florist Supplies Name Role Phone Unavailable Primary Care Provider Unavailabl e Encounter Details Date Type Department Care Team (Latest Contact Info) Description 04/11/2004 12:25 EST Hospital Encounter [facility] Emergency Department - [facility] [address] [place] [address] Emergency, Default, MD Discharge Disposition: Home or Self Care Social [...] EST) WBC 11.41 4.0 - 12.4 K/cmm [facility] RBC 4.71 3.86 - 5.04 M/cmm [facility] Hemoglobin 14.1 11.6 - 15.2 gm/dl [facility] HCT 40.5 34.9 - 44.4 % [facility] MCV 86 81 - 98 fl [facility] MCH 29.9 26.7 - 33.3 pg [facility] MCHC 34.8 32.1 - 35.9 gm/dl [facility] PLT 433(H) 141 - 320 K/cmm [facility] RDW-CV 12.8 11.7 - 14.6 % [facility] % Neutrophils 66.1 45.5 - 79.7 % [facility] % Lymphocytes 25.4 15.0 - [...] of Diff: Automated [facility] 04/11/2004 14:1 0 EST 04/11/2004 14:15 EST us Default Emergency MD PACKAGES & DNA PROBE ORDERA BLES Final Result [facility] [address] [place] [address] * N. GONORRHOEAE AMPLIFIED PROBE (04/11/2004 13:50 EST) Result No Neisseria gonorrhoeae DNA detected by surgical elastic knitter hand frame mediated amplification. [facility] Report Status Final [id number] [facility] Specimen Description Endocervix [facility] 04/11/2004 13:5 0 EST 04/11/2004 14:05 EST us Default Emergency MICROBIOLOGY - GENERAL CLEMENTE GOLDEN Final Result Performing Organization Address [facility] Co de Phone Number [facility] [address] [place] [address] * CHLAMYDIA TRACHOMATIS AMPLIFIED PROBE (04/11/2004 13:50 EST) Specimen Description Endocervix [facility] Result No Chlamydia trachomatis DNA detected by surgical elastic knitter hand frame mediated amplification. [facility] Report Status Final [id number] [facility] 04/11/2004 13:5 0 EST 04/11/2004 14:05 EST us Default Emergency MICROBIOLOGY - GENERAL CLEMENTE GOLDEN Final Result Performing Organization Address City/[facility]/ZIP Co de Phone Number [facility] [address] [place] [address] documented in this encounter Visit Diagnoses Not on filedocumented in this encounter
--- OUTSIDE RECORDS SUMMARY | 2024-05-31 00:50 | XMS_ITS | Encounter Summary ---
Author Organization [facility] Address [address] [place] [address] Care Team Providers Care Ophthalmology Assistant Name Role Phone Jasmin Jara Primary Care Provider Unavail Trinity Wilson MD Primary Care Provider Encounter Details Date Type Department Care Team (Late st Contact Info) Description 08/19/2004 Results Only [facility] Family Medicine [address] [address] Rosalio Bueno MD [address] [phone] Social History Tobacco Use Types [...] EST Rosalio Bueno MD CHEMISTRY & BLOOD GAS ORDERAB LES Final Result Performing Organization Address [facility] Co de Phone Number [facility] [address] [place] [address] * (ABNORMAL) HEMAGRAM (08/19/2004 15:37 EST) WBC 14.09(H) 4.0 - 12.4 K/cmm [facility] RBC 4.67 3.86 - 5.04 M/cmm [facility] [...] EST Rosalio Bueno MD HEMATOLOGY & PF4 ORDERABLES F inal Result Performing Organization Address City/[facility] Co de Phone Number [facility] [address] [place] [address] documented in this encounter Visit Diagnoses Not on filedocumented in this encounter Care Teams Ophthalmology Assistant Relationship Specialty Start Date End Date Jasmin Jara PA PCP - General 10/06/09 05/09/10 Trinity Samaniego MD [address] [place] [phone] PCP - General 09/16/09 10/05/09 documented as of this encounter
--- OUTSIDE RECORDS SUMMARY | 2024-05-31 00:50 | XMS_ITS | Encounter Summary ---
Author Organization [facility] Address [address] [place] [address] Care Team Providers Care Finish Mixer Name Role Phone Unavailable Primary Care Provider Unavailabl e Encounter Details Date Type Department Care Team (Latest Contact Info) Description 06/13/2004 14:28 EST Hospital Encounter [facility] Emergency Department - [facility] [address] [place] [address] Emergency, Default, MD Discharge Disposition: Home or [...] 06/13/2004 15:1 9 EST 06/13/2004 15:20 EST us Default Emergency MD LAB INFO SERVICE AND SUPPOR T & PHONE RESULT Final Result [facility] [address] [place] [address] * (ABNORMAL) HEMAGRAM AND DIFFERENTIAL (06/13/2004 15:19 EST) WBC 14.22(H) 4.0 - 12.4 K/cmm [facility] RBC 4.86 3.86 - 5.04 M/cmm [facility] Hemoglobin 14.1 11.6 - 15.2 gm/dl [facility] HCT 41.8 34.9 - 44.4 % [facility] MCV 86 81 - 98 fl [facility] MCH 29.0 26.7 - 33.3 pg [...] K/cmm [facility] RBC Morphology Normal [facility] Type of Diff: Manual [facility] 06/13/2004 15:1 9 EST 06/13/2004 15:20 EST us Default Emergency MD PACKAGES & DNA PROBE ORDERA BLES Final Result [facility] [address] [place] [address] documented in this encounter Visit Diagnoses Not on filedocumented in this encounter
--- OUTSIDE RECORDS SUMMARY | 2024-05-31 00:50 | XMS_ITS | Encounter Summary ---
Author Organization [facility] Address [address] [place] [address] Care Team Providers Care Marketing Manager Name Role Phone Unavailable Primary Care Provider Unavailabl e Encounter Details Date Type Department Care Team (Late st Contact Info) Description 04/29/2006 8:02 [facility] Hospital Encounter [facility] - Maple conversion [address] [place] [address] Fermin Trejo MD Kehoe, Stephanie S [address] [place] [phone] Social History Tobacco Use Types Packs/Day Years Used Date Smoking Tobacco: Every Day Cigarettes 0.5 13.6 Started: 11/10/2010 Smokeless Tobacco: Never Comments:06/13/20 actively try ing to quit about 5-8 cigs/day Alcohol Use Standard Drinks/Week Comments Yes 0 (1 standard drink = 0.6 oz pur e alcohol) rarely [facility] Utilities Answer Date Recorded In the past 12 months has [employer], gas, oil, or water [employer] threatened to shut off services in your [...] any time in the past 12 m [facility], were you homeless or living [...] your living situation today? I have a [facility] place to live 04/03/2024 Think about [...] the past 12 months has th e [employer], gas, oil, or water [employer] threatened to shut off services in your [...]
--- OUTSIDE RECORDS SUMMARY | 2024-05-31 00:50 | XMS_ITS | Encounter Summary ---
Author Organization [facility] Address [address] [place] [address] Care Team Providers Care Tile Molder Hand Name Role Phone Unavailable Primary Care Provider Unavailabl e Encounter Details Date Type Department Care Team (Late st Contact Info) Description 03/30/2006 Before PRISM Converted Visit (Maple) [facility] - Maple conversion [address] [place] [address] Angélica Hernandez CFNP Social History Tobacco Use Types Packs/Day Years Used Date Smoking Tobacco: Never Assessed Comments Unknown Sex and Gender Information Value Date Recorded Sex Assigned at Not on file Legal Sex Female 17:41 EST Gender Identity Female 06/18/2019 8:54 EST Sexual Orientation Not on file documented as of this encounter Progress Notes * Ra, Conv Electrical Tester Battery - 05/31/2009 0141 EST DIVISION OF SURGICAL ONCOLOGY - [facility] March 30, 2006 Broderick Ross M.D. [facility] Plastic and Reconstructive Surgery [address] [place] [address], [address] [place] [address] Dear Doctor Vandana: Thank you in advance [...] - JUNE Plata Bhupendra addison Job ID: [id number] Document ID: [id number] cc: Broderick Ross MD JUNE Calzada Bhupendra addison Job ID: [id number] Document ID: [id number] cc: Broderick Ross MD * Dayron Knapp Electrical Tester Battery - 05/31/2009 0140 EST OF SURGICAL ONCOLOGY - BREAST CARE CENTER PROGRESS/FOLLOWUP NOTE - 03/30/2006 P: Positive [...] from the paternal side. Ethnic background is Welsh and Sami. 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 She is [...] - JUNE Plata Bhupendra addison Job ID: [id number] Document ID: [id number] cc: Kamini Gore MD - JUNE Hernandez Bhupendra addison Job ID: [id number] Document ID: [id number] cc: Kamini Gore MD documented in this encounter Plan of Treatment Not on file documented as of this encounter Visit Diagnoses Not on filedocumented in this encounter
--- OUTSIDE RECORDS SUMMARY | 2024-05-31 00:50 | XMS_ITS | Encounter Summary ---
Author Organization [facility] Address [address] [place] [address] Care Team Providers Care Manager Strategy Name Role Phone Unavailable Primary Care Provider Unavailabl e Encounter Details Date Type Department Care Team (Late st Contact Info) Description 05/27/2006 9:45 EST Hospital Encounter [facility] - Maple conversion [address] [place] [address] Fermin Lovett MD Social History Tobacco Use Types Packs/Day Years Used Date Smoking Tobacco: Every Day Cigarettes 0.5 13.6 Started: 11/10/2010 Smokeless Tobacco: Never Comments:06/13/20 actively try ing to quit about 5-8 cigs/day Alcohol Use Standard Drinks/Week Comments Yes 0 (1 standard drink = 0.6 oz pur e alcohol) rarely C Utilities Answer Date Recorded In the past 12 months has [employer], gas, oil, or water company threatened to [...]
--- OUTSIDE RECORDS SUMMARY | 2024-05-31 00:50 | XMS_ITS | Encounter Summary ---
Author Organization [facility] Address [address] [place] [address] Care Team Providers Care Carpet Floor Layer Apprentice Name Role Phone Unavailable Primary Care Provider Unavailabl e Encounter Details Date Type Department Care Team (Latest Contact Info) Description 04/02/2004 17:44 EDT Hospital Encounter [facility] - Other [address] [place] [address] Rigo Rosenbaum MD [address] [place] [phone] Discharge Disposition: Auto Discharge Social History [...]
--- OUTSIDE RECORDS SUMMARY | 2024-05-31 00:50 | XMS_ITS | Encounter Summary ---
Author Organization [facility] Address [address] [place] [address] Care Team Providers Care Director Of Cardiac Cath Lab Name Role Phone Madeline Caputo Primary Care Provider [phone] Reason for Visit * Reason Comments Hyperglycemia Pt reports 335 FS at 2100, just dx with DM type 2 after thanksgiving started on metformin. Pt reports BUSH and generally not feeling well Encounter Details Date Type Department Care Team (Late st Contact Info) Description 05/10/2010 22:38 EST - 05/11/2010 0:55 EST Emergency [facility] Emergency Department - [address] [id number] Maj Almanza MD [address] [place] [phone] Doris Moreno MD [address] [place] [address], [address] [place] [phone] EmergencyEkaterina MD Hyperglycemia; Bullous myringitis; Bronchitis; Headache Discharge Disposition: [...] 23:40 EST Call endocrine clinic tomorrow at [phone], let them know you were seen in ED and Dr. Mera approved you being seen for expedited New Diabetes appt Continue weight loss efforts Zithromax as prescribed. For second opinion re headaches : call Dr. Poe [phone] For appt. Please return if worsening symptoms or any new concerns. * Attachments The following attachments cannot be sent through Care Everywhere. * BRONCHITIS IN ADULTS: AFTER YOUR VISIT (MAURITIAN) * DIABETES CARE WHEN YOU ARE SICK: AFTER YOUR VISIT (MAURITIAN) * DIABETES DIET GUIDELINES: AFTER YOUR VISIT (MAURITIAN) documented in this encounter Medications at Time of Discharge acetaminophen (APAP) 500 mg tablet Take 1,000 mg by mouth every 6 hours. 5 azithromycin (ZITHROMAX Z-GEORGINA) 250 mg tablet Take 1 Tab by mouth SEE ADMIN INSTRUCTIONS for 5 days. Take 2 tabs today and 1 tab on days 2 through 5 4 Tab 0 05/10/2010 0 metformin (GLUCOPHAGE) 500 mg tablet Take 500 mg by mouth 2 times daily. 05/10/2010 5 documented as of this encounter Ordered Prescriptions Prescription Sig Dispense Quantity Refills Last Filled Start Date End Date azithromycin (ZITHROMAX Z-GEORGINA) 250 mg tablet Take 1 Tab by mouth SEE ADMIN INSTRUCTIONS for 5 days. Take 2 tabs today and 1 tab on days 2 through 5 4 Tab 0 05/10/2010 0 documented in this encounter Discharge Disposition [...] doctors office and was referred to the [facility] ED, but pt understood that they refused to see me as they needed to talk to her doctor first. Therefore, she came to [facility]. Pt notes recent nasal congestion, cough, and [...] CARE Urine specimen (specimen) 05/11/2010 0:37 EST us Maj Archie [facility]ÍNE[facility] POINT OF CARE TEST ORDERABLES Fi nal Result POINT OF CARE * (ABNORMAL) POCT URINE [...] Maj Archie MARTÍNEZ POINT OF CARE TEST ORDERABLES Fi nal Result POINT OF CARE * ELEVATED GLUCOSE (05/10/2010 22:53 EST) Pathologist [facility] Elevated Glucose Screening glucose greater than 180 mg/dl. Please order follow up hemoglobin A1c. [facility] 05/10/2010 22:5 3 EST 05/10/2010 23:36 EST Maj Archie MARTÍNEZ CHEMISTRY & BLOOD GAS ORDERABLES Final Result Performing Organization Address City/[facility]/ZIP Co de Phone Number [facility] [address] [place] [address] * (ABNORMAL) HEMAGRAM AND DIFFERENTIAL (05/10/2010 22:53 EST) Pathologist [facility] WBC 11.56 4.0 - 12.4 K/cmm [facility] RBC 4.39 3.86 - 5.04 M/cmm [facility] Hemoglobin 13.6 11.6 - 15.2 gm/dl [facility] HCT 38.5 34.9 - 44.4 % [facility] MCV 88 81 - 98 fl [facility] MCH 30.9 26.7 - 33.3 pg [facility] MCHC 35.3 32.1 - 35.9 gm/dl [facility] PLT 352(H) 141 - 320 K/cmm [facility] RDW-CV 12.8 11.7 - 14.6 % [facility] % Neutrophils 57.0 45.5 - 79.7 % [facility] % Lymphocytes 33.2 15.0 - [...] [facility] Type of Diff: Automated [facility] Blood specimen (specimen) 05/10/2010 22:53 EST 05/10/2010 23:36 EST Maj Archie MARTÍNE[facility] PACKAGES & DNA PROBE ORDERABLES Final Result Performing Organization Address [facility] de Phone Number [facility] [address] [place] [address] * (ABNORMAL) SCREENING GLUCOSE (05/10/2010 22:53 EST) Glucose, Screening 238(H) 70 - 100 mg/dl [facility] Blood specimen (specimen) 05/10/2010 22:53 EST 05/10/2010 23:36 EST Maj Archie MARTÍNEZ CHEMISTRY & BLOOD GAS ORDERABLES Final Result Performing Organization Address [facility] de Phone Number [facility] [address] [place] [address] * CREATININE (05/10/2010 22:53 EST) Creatinine 0.80 0.7 - 1.5 mg/dl [facility] GFR, Calculated >60 ml/min/1.7 3m2 [facility] Blood specimen (specimen) 05/10/2010 22:53 EST 05/10/2010 23:36 EST us Maj Archie MARTÍNEZ CHEMISTRY & BLOOD GAS ORDERABLES Final Result Performing Organization Address [facility] de Phone Number [facility] [address] [place] [address] * BUN (05/10/2010 22:53 EST) BUN 12 10 - 26 mg/dl [facility] Blood specimen (specimen) 05/10/2010 22:53 EST 05/10/2010 23:36 EST us Maj Archie MARTÍNEZ CHEMISTRY & BLOOD GAS ORDERABLES Final Result Performing Organization Address [facility] de Phone Number [facility] [address] [place] [address] * ELECTROLYTES (05/10/2010 22:53 EST) Sodium 138 136 - 145 mEq/L [facility] Potassium 4.4 3.5 - 5.0 mEq/L [facility] Chloride 98 96 - 110 mEq/L [facility] CO2 29 24 - 32 mEq/L [facility] Blood specimen (specimen) 05/10/2010 22:53 EST 05/10/2010 23:36 EST Maj Archie MARTÍNEZ CHEMISTRY & BLOOD GAS ORDERABLES Final Result Performing Organization Address [facility] Phone Number [facility] [address] [place] [address] documented in this encounter Visit Diagnoses Diagnosis [...] may reflect changes made after this encounter. metformin (GLUCOPHAGE) 500 mg tablet Take 500 [...] 05/10 documented in this encounter Care Teams Director Of Cardiac Cath Lab Relationship Specialty Start Date End Date Madeline Caputo PA [address] [place] [address] PCP - General 05/10/10 12/31/14 documented as of this encounter
--- OUTSIDE RECORDS SUMMARY | 2024-05-31 00:50 | XMS_ITS | Encounter Summary ---
Author Organization [facility] Address [address] [place] [address] Care Team Providers Care Casing Crew Pusher Name Role Phone Jasmin Jara Primary Care Provider Unavail able Encounter Details Date Type Department Care Team (Late st Contact Info) Description 02/16/2010 Abstract Used for ABSTRACTING Data [phone] Jasmin Jara PA Social History Tobacco Use [...] may reflect changes made after this encounter. acetaminophen (APAP) 500 mg tablet Take 1,000 mg by mouth every 6 hours. 01/01/2015 topiramate (TOPAMAX) 25 mg tablet Take 25 mg by mouth 2 times daily. 05/10/2010 added in this encounter Care Teams Casing Crew Pusher Relationship Specialty Start Date End Date Jasmin Jara PA PCP - General 10/06/09 05/09/10 documented as of this encounter
--- OUTSIDE RECORDS SUMMARY | 2024-05-31 00:50 | XMS_ITS | Encounter Summary ---
Author Organization [facility] Address [address] [place] [address] Care Team Providers Care Account Manager Name Role Phone Unavailable Primary Care Provider Unavailabl e Encounter Details Date Type Department Care Team (Late st Contact Info) Description 03/30/2006 7:53 EDT Hospital Encounter [facility] [address] [place] [address] Unknown, Provider, Social History Tobacco Use Types Packs/Day Years Used Date Smoking Tobacco: Every Day Cigarettes 0.5 13.6 Started: 11/10/2010 Smokeless Tobacco: Never Comments:06/13/20 actively try ing to quit about 5-8 cigs/day Alcohol Use Standard Drinks/Week Comments Yes 0 (1 standard drink = 0.6 oz pur e alcohol) rarely C Utilities Answer Date Recorded In the past 12 months has [employer], gas, oil, or water company threatened to [...] time in the past 12 m [facility], were you homeless or living in [...]
--- OUTSIDE RECORDS SUMMARY | 2024-05-31 00:50 | XMS_ITS | Encounter Summary ---
Author Organization [facility] Address [address] [place] [address] Care Team Providers Care Mechanical Designer Name Role Phone Jasmin Jara Primary Care Provider Unavail able Encounter Details Date Type Department Care Team (Late st Contact Info) Description 05/05/2010 Results Only [facility] [address] [place], [place] [id number] Ann Booker MD [address] [place] [address] Social History Tobacco Use Types Packs/Day Years [...] ? CRISTY TALBOT ? Accession #: ? [id number] ? : ? 1985 (Age: 25) ??F ?Collect Date: ? 05/05/2010 ? Location: ? [facility] ? Receive Date: ? 05/07/2010 ? Provider: ?ANN BOOKER MD ? Copy to: ? Specimen/Source: ?Pap [...] reviewed and electronically signed by: ? Rigo Costello, CT(ASCP) ? Report Date: ??05/11/2010 12:55 ? End of Report ? [facility] 05/05/2010 05/07/2010 us Ann Booker MD PATHOLOGY ORDERABLES Final R esult [facility] [address] [place] [address] documented in this encounter Visit Diagnoses Not on filedocumented in this encounter Care Teams Mechanical Designer Relationship Specialty Start Date End Date Jasmin Jara PA PCP - General 10/06/09 05/09/10 documented as of this encounter
--- OUTSIDE RECORDS SUMMARY | 2024-05-31 00:50 | XMS_ITS | Encounter Summary ---
Author Organization [facility] Address [address] [place] [address] Care Team Providers Care Awning Hanger Supervisor Name Role Phone Jasmin Jara Primary Care Provider Unavail able Encounter Details Date Type Department Care Team (Late st Contact Info) Description 10/20/2009 Abstract [facility] Plastic, Reconstructive & Cosmetic Surgery - [address], [address] [place], [place] [id number] Jasmin Jara PA Social History Tobacco Use [...] on filedocumented in this encounter Care Teams Awning Hanger Supervisor Relationship Specialty Start Date End Date Jasmin Jara PA PCP - General 10/06/09 05/09/10 documented as of this encounter
--- OUTSIDE RECORDS SUMMARY | 2024-05-31 00:50 | XMS_ITS | Encounter Summary ---
Author Organization [facility] Address [address] [place] [address] Care Team Providers Care Palliative Care Nurse Name Role Phone Trinity Samaniego MD Primary Care Provider [phone] Encounter Details Date Type Department Care Team (Late st Contact Info) Description 09/18/[address] [address] Trinity Samaniego MD [address] [phone] Obesity, unspecified; Migraine NOS/not intrcbl Social [...] migrainosus documented in this encounter Care Teams Palliative Care Nurse Relationship Specialty Start Date End Date Trinity Samaniego MD [address] [phone] PCP - General 09/16/09 10/05/09 documented as of this encounter
--- OUTSIDE RECORDS SUMMARY | 2024-05-31 00:50 | XMS_ITS | Encounter Summary ---
Author Organization [facility] Address [address] [place] [address] Care Team Providers Care Pamphlet Distributor Name Role Phone Unavailable Primary Care Provider Unavailabl e Encounter Details Date Type Department Care Team (Late st Contact Info) Description 08/19/2004 16:02 [facility] Hospital Encounter [facility] - Other [address] [place] [address] Rosalio Bueno MD [address] [phone] Social History Tobacco Use Types Packs/Day Years Used Date Smoking Tobacco: Every Day Cigarettes 0.5 13.6 Started: 11/10/2010 Smokeless Tobacco: Never Comments:06/13/20 actively try ing to quit about 5-8 cigs/day Alcohol Use Standard Drinks/Week Comments Yes 0 (1 standard drink = 0.6 oz pur e alcohol) rarely C Utilities Answer Date Recorded In the past 12 months has [employer], gas, oil, or water [employer] threatened to shut off services in your [...] the past 12 months has th e [employer], gas, oil, or water [employer] threatened to shut off services in your [...]
--- OUTSIDE RECORDS SUMMARY | 2024-05-31 00:50 | XMS_ITS | Encounter Summary ---
Author Organization [facility] Address [address] [place] [address] Care Team Providers Care Bit Sharpener Operator Name Role Phone Unavailable Primary Care Provider Unavailabl e Encounter Details Date Type Department Care Team (Late st Contact Info) Description 06/22/2006 Before PRISM Converted Visit (Maple) [facility] - Maple conversion [address] [place] [address] Broderick Ross MD Social History Tobacco Use [...] breast cancer. An ultrasound was done by Bethanie Hernandez, which was found to be normal. Bethanie Hernandez, in her note, indicated that, ???it is noted she (i.e., the patient) is unable to lye flat on her back for the clinical breast exam as her breasts interfere withher normal breathing pattern. 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 For hobbies, she enjoys [...] 5 feet 4 inches and her weight [id number]. On examination of the patients anterior chest, [...] that the procedure was done as a [id number]-[id number] admission with general anesthesia and that the [...] of her breasts. I told the pa bradford that she would probably not see the [...] Ross MD - Erich Ross MD [facility] Job ID: [id number] Document ID: [id number] cc: JUNE Plata MD documented in this encounter Plan of Treatment Not on file documented as of this encounter Visit Diagnoses Not on filedocumented in this encounter
--- OUTSIDE RECORDS SUMMARY | 2024-05-31 00:50 | XMS_ITS | Encounter Summary ---
Author Organization [facility] Address [address] [place] [address] Care Team Providers Care Smalltalk Developer Name Role Phone Unavailable Primary Care Provider Unavailabl e Encounter Details Date Type Department Care Team (Late st Contact Info) Description 06/13/2004 Office Visit [facility] - Maple conversion [address] [place] [address] Doris Moreno MD [address] [facility], [address] [place] [phone] Social History Tobacco Use Types Packs/Day Years [...] draw with 5 mL normal saline. --15:24 Manuela GuptaMCatherine PHENERGAN 12.5 mg slow IVP over 1 [...] patient's status. Notified (MD NEAL). --17:21 Thomas Mars R.N. BP: 139 / 99 HR: 98 [...] patient was discharged home and accompanied by impersonator character. The patient left the Emergency Department ambulatory and via private vehicle. --17:31 Rob Echeverria R.N., E.M.T. Dorrie Bruso R.N. Tyler Vogt, R.N. Locked/Released at 06/13/2004 19:11 by Norma Evans R.N. documented in this encounter Plan of Treatment Not on file documented as of this encounter Visit Diagnoses Not on filedocumented in this encounter
--- OUTSIDE RECORDS SUMMARY | 2024-05-31 00:50 | XMS_ITS ---
Author Organization Unknown Address [address] [place] [address] [phone] Phone Care Team Providers Care Sales Representative [employer] Name Role Phone OLIVE KING Registered Nurse Unavailable Unavailable [facility] Unavailable ROSA ISELA Judge Attending Unavailable RULA [facility] Unavailable LORIN Jung Primary Unavailable UNLISTED PROVIDER - REQUESTED Xhandoff Un available Results NOVA GLUCOSE FINGER HEEL CAP ILLARY - Collect Date/Time: 01/07/2024 07:46 [facility] ID: [id number] [address] [place] [address], [id number] LOINC: 64171-1 Test Value Unit Reference Range Code Code System Flag GLUCOSE CAP 214 mg/dL L=70 H=116 26859-3 LOINC H MAGNESIUM SERUM* - Collect D ate/Time: 01/07/2024 07:05 [facility] ID: [id number] [address] [place] [address], [address] LOINC: 34880-7 Test Value Unit Reference Range Code Code System Flag MAGNESIUM 2.0 mg/dL L=1.8 H=2.4 45216-1 LOINC BASIC METABOLIC PANEL (BMP) - Collect Date/Time: 01/07/2024 07:05 [facility] ID: [id number] [address] [place] [address], [address] LOINC: 42809-6 Test Value Unit Reference Range Code Code [...] H=34 2028-9 LOINC ANION GAP 12.1 mmol/L 40231-2 LOINC CALCIUM SERUM 8.6 mg/dL L=8.2 H=10.2 80628-2 LOINC AGE 38 years eGFR (non-Afr.Amer.) 104 mL/min 80389-0 LOINC eGFR (Afr-Cymraes) > 120 mL/min 95237-2 LOINC CBC W/ DIFFERENTIAL* - Colle ct Date/Time: 01/07/2024 07:05 [facility] ID: [id number] [address] [place], [place], [address] LOINC: 22945-0 Test Value Unit Reference Range Code Code System Flag WBC 16.49 th/cmm L=5.00 H=10.00 6690-2 LOINC H NEUT % 65.2 % L=40.0 H=80.0 LYMPH % 26.0 % L=10.0 H=50.0 MONO % 7.0 % L=2.0 H=12.0 60278-1 LOINC EOS % 1.2 % L=0.0 H=8.0 BASO % 0.2 % L=0.0 H=3.0 IG % 0.4 % L=0.0 H=1.1 2514-8 LOINC NRBC % 0.0 % L=0.0 H=0.0 29985-4 LOINC NEUT abs count 10.8 th/cmm L=1.6 H=8.4 751-8 LOINC H LYMPH abs count 4.3 th/cmm L=1.5 H=4.0 731-0 LOINC H MONO abs count 1.2 th/cmm L=0.2 H=1.0 742-7 LOINC H EOS abs count 0.2 th/cmm L=0.0 H=0.5 711-2 LOINC BASO abs count 0.0 th/cmm L=0.0 H=0.2 704-7 LOINC IG abs count 0.1 th/cmm L=0.0 H=0.1 05357-9 LOINC NRBC abs count 0.0 mil/cmm L=0.0 H=0.0 34993-7 LOINC RBC 4.12 mil/cmm L=3.90 H=5.40 789-8 [...] CAP ILLARY - Collect Date/Time: 01/06/2024 20:49 [facility] ID: [id number] [address], [place], [id number] LOINC: 70644-3 Test Value Unit Reference Range Code Code System Flag GLUCOSE CAP 239 mg/dL L=70 H=116 60802-7 LOINC H LACTIC ACID - Collect Date/T nestor: 01/06/2024 13:30 [facility] ID: [id number] [address] [place], [place], [address] LOINC: Test Value Unit Reference Range Code Code System Flag LACTIC ACID 1.8 mmol/L L=0.7 H=2.1 29011-1 [facility] NOVA GLUCOSE FINGER HEEL CAP ILLARY - Collect Date/Time: 01/06/2024 12:54 [facility] ID: [id number] [address], [place], [id number] LOINC: 60991-5 Test Value Unit Reference Range Code Code System Flag GLUCOSE CAP 329 mg/dL L=70 H=116 51821-3 LOINC H DRUG SCN 13 PANEL (MEDTOX)* - Collect Date/Time: 01/06/2024 12:15 [facility] ID: [id number] [address] [place], [place], [id number] LOINC: 18597-4 Test Value Unit Reference Range Code Code System Flag CANNABINOIDS POSITIVE Cutoff = 50 ng/mL 27239-8 LOINC A PHENCYCLIDINE NEGATIVE Cutoff = 25 ng/mL 68070-7 LOINC COCAINE NEGATIVE Cutoff = 150 ng/mL 29595-9 LOINC METHAMPHETAMINES NEGATIVE Cutoff = 50 0 ng/mL 16716-7 LOINC OPIATES NEGATIVE Cutoff = 100 ng/mL 40859-1 LOINC AMPHETAMINES NEGATIVE Cutoff = 500 ng/mL 05590-8 LOINC BENZODIAZEPINES NEGATIVE Cutoff = 150 ng/mL 46370-4 LOINC TRICYCLIC ANTIDEP NEGATIVE Cutoff = 3 00 ng/mL 3533-7 LOINC METHADONE NEGATIVE Cutoff = 200 ng/mL 05547-3 LOINC BARBITURATES NEGATIVE Cutoff = 200 ng/mL 24376-6 LOINC OXYCODONE POSITIVE Cutoff = 100 ng/mL 16665-0 LOINC A BUPRENORPHINE NEGATIVE Cutoff = 10 mg/mL 3414-0 LOINC URINALYSIS WITH MICROSCOPIC* - Collect Date/Time: 01/06/2024 12:15 [facility] ID: [id number] [address] [place], [place], [address] LOINC: 70472-1 Test Value Unit Reference Range Code Code System Flag COLLECTION MODE: CLEAN CATCH 81683-7 LOINC Color YELLOW yellow 5778-6 LOINC Appearance HAZY clear 5767-9 LOINC Glucose urine >=1000 negative mg/dl 98144-2 LOINC A Bilirubin NEGATIVE negative 5770-3 LOINC Ketones >=80 negative mg/dl 2514-8 LOINC A Spec gravity 1.025 1.003 - 1.030 5811-5 LOINC pH urine 5.5 5.0 - 7.0 2756-5 LOINC Protein TRACE negative mg/dl 92593-1 LOINC Urobilinogen 0.2 <or= 1 EU/dl 19533-0 LOINC Nitrite NEGATIVE negative 5802-4 LOINC Blood TRACE-IN negative 5794-3 LOINC A Leukocytes NEGATIVE negative 21618-4 LOINC WBCs 0-5 0-5 / hpf 78139-6 LOINC RBCs 0-5 0-5 / hpf 20676-7 LOINC Epith cells 5-10 0-5 / hpf 81632-3 LOINC Cell types squamous Crystals none none Bacteria none none Mucus none none Casts none none /lpf Other KETONES QUAL - Collect Date/ Time: 01/06/2024 11:15 [facility] ID: [id number] [address] [place], [place], [address] LOINC: 5567-3 Test Value Unit Reference Range Code Code System Flag ACETONE SMALL 5567-3 LOINC CBC W/ DIFFERENTIAL* - Colle ct Date/Time: 01/06/2024 11:15 [facility] ID: [id number] [address] [place] [address], [address] LOINC: 41430-1 Test Value Unit Reference Range Code Code System Flag WBC 15.83 th/cmm L=5.00 H=10.00 6690-2 LOINC H NEUT % 87.2 % L=40.0 H=80.0 H LYMPH % 10.4 % L=10.0 H=50.0 MONO % 1.5 % L=2.0 H=12.0 28270-7 LOINC L EOS % 0.1 % L=0.0 H=8.0 BASO % 0.4 % L=0.0 H=3.0 IG % 0.4 % L=0.0 H=1.1 2514-8 LOINC NRBC % 0.0 % L=0.0 H=0.0 16644-8 LOINC NEUT abs count 13.8 th/cmm L=1.6 H=8.4 751-8 LOINC H LYMPH abs count 1.7 th/cmm L=1.5 H=4.0 731-0 LOINC MONO abs count 0.2 th/cmm L=0.2 H=1.0 742-7 LOINC EOS abs count 0.0 th/cmm L=0.0 H=0.5 711-2 LOINC BASO abs count 0.1 th/cmm L=0.0 H=0.2 704-7 LOINC IG abs count 0.1 th/cmm L=0.0 H=0.1 08563-0 LOINC NRBC abs count 0.0 mil/cmm L=0.0 H=0.0 60439-6 LOINC RBC 4.16 mil/cmm L=3.90 H=5.40 789-8 [...] RATE* - Collect Date/Jona e: 01/06/2024 11:15 [facility] ID: [id number] [address] [place] [address], [address] LOINC: 4537-7 Test Value Unit Reference Range Code Code System Flag SED. RATE 96 mm/hr L=0 H=20 4537-7 LOINC H C REACTIVE PROTEIN HIGH SENS ITIVITY* - Collect Date/Time: 01/06/2024 11:15 [facility] ID: [id number] [address] [place] [address], [address] LOINC: 00896-4 Test Value Unit Reference Range Code Code System Flag CRP-HIGH SENS. 64.92 mg/L L=0.00 H=3.00 32516-7 LOINC H CRP-HIGH SENS 6.49 mg/dL L=0.00 H=0.30 25271-0 LOINC H SALICYLATE SERUM* - Collect Date/Time: 01/06/2024 11:15 [facility] ID: [id number] [address] [place] [address], [address] LOINC: 4024-6 Test Value Unit Reference Range Code Code System Flag SALICYLATE 4.9 mg/dL L=15.0 H=30.0 4024-6 LOINC L ACETAMINOPHEN* - Collect Norm e/Time: 01/06/2024 11:15 [facility] ID: [id number] [address] [place] [address], [address] LOINC: 3298-7 Test Value Unit Reference Range Code Code System Flag ACETAMINOPHEN < 2.0 ug/mL L=10.0 H=20.0 3298-7 LOINC L ALCOHOL (ETHANOL)* - Collect Date/Time: 01/06/2024 11:15 [facility] ID: [id number] [address] [place] [address], [address] LOINC: 57631-5 Test Value Unit Reference Range Code Code System Flag ALCOHOL (ETHANOL) 3 mg/dL 10796-6 LOINC PHOSPHORUS SERUM - Collect D ate/Time: 01/06/2024 11:15 [facility] ID: [id number] [address] [place] [address], [id number] LOINC: 2777-1 Test Value Unit Reference Range Code Code System Flag PHOSPHORUS SERUM 3.3 mg/dL L=2.2 H=4.2 MAGNESIUM SERUM* - Collect D ate/Time: 01/06/2024 11:15 [facility] ID: [id number] [address] [place] [address], [address] LOINC: 94349-4 Test Value Unit Reference Range Code Code System Flag MAGNESIUM 1.6 mg/dL L=1.8 H=2.4 00022-8 LOINC L OSMOLALITY SERUM - Collect D ate/Time: 01/06/2024 11:15 [facility] ID: [id number] [address] [place], [place], [id number] LOINC: 2692-2 Test Value Unit Reference Range Code Code System Flag Osmolality 308 275-295 H LACTIC ACID - Collect Date/T nestor: 01/06/2024 11:15 [facility] ID: [id number] [address] [place] [address], [address] LOINC: Test Value Unit Reference Range Code Code System Flag LACTIC ACID 2.7 mmol/L L=0.7 H=2.1 99295-4 LOINC H COMPREHENSIVE METABOLIC PANE L (CMP) - Collect Date/Time: 01/06/2024 11:15 [facility] ID: [id number] [address] [place] [address], [address] LOINC: 64308-3 Test Value Unit Reference Range Code Code [...] H=34 2028-9 LOINC ANION GAP 15.1 mmol/L 11665-0 LOINC CALCIUM SERUM 8.8 mg/dL L=8.2 H=10.2 73199-9 LOINC BILIRUBIN TOTAL 0.3 mg/dL L=0.0 H=1.3 1975-2 LOINC ALK. PHOS. 121 U/L L=46 H=116 6768-6 LOINC H SGOT (AST) 13 U/L L=15 H=37 1920-8 LOINC L SGPT (ALT) 18 U/L L=12 H=78 1742-6 LOINC TOTAL PROTEIN 7.7 gm/dL L=6.0 H=8.0 2885-2 LOINC ALBUMIN 2.8 gm/dL L=3.4 H=5.0 1751-7 LOINC L AGE 38 years eGFR (non-Afr.Amer.) 85 mL/min 47336-3 LOINC eGFR (Afr-Cymraes) 103 mL/min 19806-1 LOINC ORDER VENOUS BLOOD GAS* - Co llect Date/Time: 01/06/2024 11:10 [facility] ID: [id number] [address] [place] [address], [id number] LOINC: Test Value Unit Reference Range Code [...] CAP ILLARY - Collect Date/Time: 01/06/2024 11:07 [facility] ID: [id number] [address] [place] [address], [id number] LOINC: 64128-6 Test Value Unit Reference Range Code Code System Flag GLUCOSE CAP 342 mg/dL L=70 H=116 21831-0 LOINC H Social History Type Status Start Date End Date Code Code Syst em Sex Female Vital Signs Vital Sign Value Unit Perkins Value Perkins Unit Date/Time Recent/Initial? Code Code System Body Mass Index 37.08 kg/m2 01/06/2024 13:53 Initial 38187 -5 [facility] Systolic Blood Pressure 132 mm[Hg] 01/07/2024 03:48 Most Recent 8480- 6 [facility] Diastolic Blood Pressure 87 mm[Hg] 01/07/2024 03:48 Most Recent 8462- 4 [facility] Systolic Blood Pressure 153 mm[Hg] 01/06/2024 11:09 Initial 8480- 6 [facility] Diastolic Blood Pressure 90 mm[Hg] 01/06/2024 11:09 Initial 8462- 4 [facility] Body Surface Area 2.10 m2 01/06/2024 13:53 Initial 3140- 1 [facility] Height 162.560 0 cm 64.00 in 01/06/2024 13:53 Initial 8302- 2 [facility] O2 Saturation 96 % 2023 05:08 Most Recent 61377 -5 [facility] O2 Saturation 100 % 2023 11:09 Initial 65739 -5 [facility] Inhaled Oxygen Flow Rate 4.00 L/min 01/06/2024 11:30 Initial 3151- 8 [facility] Pulse 113.0 /min 01/07/2024 05:08 Most Recent 8867- 4 [facility] Pulse 110.0 /min 01/06/2024 11:09 Initial 8867- 4 [facility] Respiration 22 /min 01/07/20 24 05:08 Most Recent 9279- 1 [facility] Respiration 12 /min 01/06/20 24 11:09 Initial 9279- 1 [facility] Temperature 37.9 Mesha 100.2 F 01/07/20 24 03:48 Most Recent 8310- 5 [facility] Temperature 36.2 Mesha 97.2 F 01/06/20 24 11:09 Initial 8310- 5 [facility] Weight 97.98 kg 216.00 lbs 01/06/2024 13:53 Initial 40260 -7 [facility] Medications Medication Start Date End Date Route Frequency Dose Code Code System Medication Instructions Home Meds Bactrim DS 800MG-160MG Oral Tablet 01/07/2024 Unknown ORAL TWICE A DAY 1 unit(s) 371763 RxNorm TAKE 1 EACH ORAL TWICE A DAY DULoxetine HCl 40MG Oral Capsule, Delayed Release 01/07/2024 Unknown ORAL DAILY 40 MILLIGRAMS 683033 RxNorm TAKE 40 MILLIGRAM S ORAL DAILY Gabapentin 300MG Oral Capsule 01/07/2024 Unknown ORAL DAILY 300 MILLIGRAMS 326405 RxNorm TAKE 300 MILLIGRAM S ORAL DAILY Gabapentin 300MG Oral Tablet 01/07/2024 Unknown ORAL BEDTIME 1200 MILLIGRAMS 8600403 RxNorm TAKE 1200 MILLIGRAM S ORAL BEDTIME Januvia 25MG Oral Tablet 01/07/2024 Unknown ORAL DAILY 25 MILLIGRAMS 801090 RxNorm TAKE 25 MILLIGRAM S ORAL DAILY Jardiance 10MG Oral Tablet 01/07/2024 Unknown ORAL DAILY 10 MILLIGRAMS 9033083 RxNorm TAKE 10 MILLIGRAM S ORAL DAILY Lantus SoloStar 100U/1ML Subcutaneous Solution 01/07/2024 Unknown SUBCUTAN EOUS BEDTIME 40 UNIT RxNorm INJECT 40 UNIT SUBCUTANE OUS BEDTIME Lidocaine 5% Topical application Patch, Extended Release 01/07/2024 Unknown TOPICAL APPLICAT ION DAILY 1 unit(s) 7145710 RxNorm 1 EACH TOPICAL APPLICATI ON DAILY Omeprazole 40MG Oral Capsule, Delayed Release 01/07/2024 Unknown ORAL DAILY 40 MILLIGRAMS 543076 RxNorm TAKE 40 MILLIGRAM S ORAL DAILY Ondansetron 4MG Oral Tablet, Disintegrating 01/07/2024 Unknown ORAL NEEDED EVERY 6 HOURS 4 MILLIGRAMS 624270 RxNorm TAKE 4 MILLIGRAM S ORAL NEEDED EVERY 6 HOURS Reglan 10MG Oral Tablet 01/07/2024 Unknown ORAL NEEDED EVERY 6 HOURS 10 MILLIGRAMS 299938 RxNorm TAKE 10 MILLIGRAM S ORAL NEEDED EVERY 6 HOURS insulin aspart 100U/1ML Injection Solution 01/07/2024 Unknown INJECTIO N THREE TIMES A DAY 1 UNIT 334916 RxNorm 1 UNIT INJECTION THREE TIMES A DAY oxyCODONE HCl-acetaminoph en 5MG-325MG Oral Tablet 01/07/2024 Unknown ORAL NEEDED EVERY 6 HOURS 1 TABLET 7830722 RxNorm TAKE 1 TABLET ORAL NEEDED EVERY 6 HOURS traMADol HCl 50MG Oral Tablet 01/07/2024 Unknown ORAL NEEDED EVERY 6 HOURS 50 MILLIGRAMS 045950 RxNorm TAKE 50 MILLIGRAM S ORAL NEEDED EVERY 6 HOURS traZODone hydrochloride 50MG Oral Tablet 01/07/2024 Unknown ORAL BEDTIME 50 MILLIGRAMS 992226 RxNorm TAKE 50 MILLIGRAM S ORAL BEDTIME [...] Syste m Amputation of left foot completed [id number] S NOMEDCT Problems Problem Start Date Resolved Date Status Code Code System NAUSEA active 137072811 SNOMED-CT VOMITING active 931379504 SNOMED-CT GASTROPARESIS WITH DM active 90584020 4 SNOMED-CT T2DM active 65770307 SNOMED-CT DIABETES TYPE I 01/06/2024 resolved 40253839 SNO MED-CT GASTROPARESIS 01/06/2024 resolved 496189917 SNOME D-CT Allergies and Adverse Reactions Allergy Substance Reaction Severity Start Date Concern Status Co de Code System No Known Drug Allergies Active 057156029 SNOMED-CT Plan of Treatment Plan # Nausea, vomiting, status post transmetatarsal amputation 01/03/2024. # History of gastroparesis # AMS presentation in ED with improvement with Narcan IV fluid while vomiting, advance diet as tolerated. Encourage fluids, ice chips slowly. Serial laboratory monitoring. Replete electrolytes as needed. Continue previously prescribed Bactrim DS by fisheries enforcement officer at [facility] Limit narcotics as much as possible to breakthrough pain, IV Tylenol TID Ondansetron and metoclopramide for nausea management Decrease gabapentin PM dose and hold trazodone and tramadol due to AMS presentation in ED [place] [facility] consult-->Dr. Carvalho saw patient in ED, [...] Date Inactive Da te Discharge Summary Notes [facility] 01/07/2024 10:36 Patient Name: CATARINA SERNA Date [...] for neuropathic full-thickness ulcer and cellulitis at [facility], gastroparesis, migraines, anxiety, depression, chronic low back pain, presents to the emergency department for complaints of nausea and vomiting today. patient was seen by fisheries enforcement officer yesterday at [facility] and her recent surgical site showed [...] IV. patient's left foot wound evaluated by [place] [facility] as well as hospital medicine and will hold further IV antibiotics and start prescribed Bactrim DS per [facility] podiatry. Patient will be admitted to [...] alert and oriented History and Physical Notes [facility] 01/06/2024 18:35 Patient Name Age Sex Admission [...] for neuropathic full-thickness ulcer and cellulitis at [facility], gastroparesis, migraines, anxiety, depression, chronic low back pain, presents to the emergency department for complaints of nausea and vomiting today. patient was seen by fisheries enforcement officer yesterday at [facility] and her recent surgical site showed [...] IV. patient's left foot wound evaluated by [place] [facility] as well as hospital medicine and will hold further IV antibiotics and start prescribed Bactrim DS per [facility]. Patient will be admitted to [...] needed. Continue previously prescribed Bactrim DS by fisheries enforcement officer at [facility] Limit narcotics as much as possible to breakthrough pain, IV Tylenol TID Ondansetron and metoclopramide for nausea management Decrease gabapentin PM dose and hold trazodone and tramadol due to AMS presentation in ED [place] [facility] consult-->Dr. Carvalho saw patient in ED, [...]
--- OUTSIDE RECORDS SUMMARY | 2024-05-31 00:50 | XMS_ITS | Encounter Summary ---
Author Organization [facility] Address [address] [place] [address] Care Team Providers Care Black Leather Buffer Name Role Phone Unavailable Primary Care Provider Unavailabl e Encounter Details Date Type Department Care Team (Late st Contact Info) Description 07/28/2006 15:28 EST Hospital Encounter [facility] [address] [place] [address] Elise Vanegas MD [address] [place] [address] Social History Tobacco Use Types Packs/Day Years Used Date Smoking Tobacco: Every Day Cigarettes 0.5 13.6 Started: 11/10/2010 Smokeless Tobacco: Never Comments:06/13/20 actively try ing to quit about 5-8 cigs/day Alcohol Use Standard Drinks/Week Comments Yes 0 (1 standard drink = 0.6 oz pur e alcohol) rarely [facility] Utilities Answer Date Recorded In the past 12 months has [employer], gas, oil, or water [employer] threatened to shut off services in your [...] time in the past 12 m [facility], were you homeless or living [...] the past 12 months has th e [employer], gas, oil, or water company threatened to [...]
--- OUTSIDE RECORDS SUMMARY | 2024-05-31 00:50 | XMS_ITS | Encounter Summary ---
Author Organization [facility] Address [address] [place] [address] Care Team Providers Care Pet Feeder Name Role Phone Unavailable Primary Care Provider Unavailabl e Encounter Details Date Type Department Care Team (Latest Contact Info) Description 01/24/2006 14:06 EDT Hospital Encounter [facility] - [place] conversion [address] [place] [address] Felix Merritt III, MD [address] [place] [address] Discharge Disposition: Auto Discharge Social History Tobacco [...] EDT) TSH 1.13 0.35 - 5.00 uIU/mL [facility] 01/24/2006 16:0 3 EDT 01/24/2006 18:49 EDT us Fermin Trejo MD CHEMISTRY & BLOOD GAS ORDERABL ES Final Result [facility] [address] [place] [address] * (ABNORMAL) COMPREHENSIVE METABOLIC PANEL (01/24/2006 16:03 EDT) [facility] Potassium 4.0 3.5 - 5.0 mEq/L [facility] [...] 01/24/2006 16:0 3 EDT 01/24/2006 18:49 EDT us Fermin Trejo MD CHEMISTRY & BLOOD GAS ORDERABL ES Final Result [facility] [address] [place] [address] * (ABNORMAL) HEMAGRAM (01/24/2006 16:03 EDT) WBC [...] 11.7 - 14.6 % [facility] 01/24/2006 16:0 3 EDT 01/24/2006 18:49 EDT us Fermin Trejo MD HEMATOLOGY & PF4 ORDERABLES Fi nal Result [facility] [address] [place] [address] documented in this encounter Visit Diagnoses Not on filedocumented in this encounter
--- OUTSIDE RECORDS SUMMARY | 2024-05-31 00:50 | XMS_ITS | Encounter Summary ---
Author Organization [facility] Address [address] [place] [address] Care Team Providers Care Open Hearth Worker Name Role Phone Unavailable Primary Care Provider Unavailabl e Encounter Details Date Type Department Care Team (Latest Contact Info) Description 10/11/2006 10:03 EDT - 10/11/2006 11:59 EDT Hospital Encounter [address] [address] Fermin Lovett MD Discharge Disposition: Auto Discharge [...] Impression: Normal pelvic ultrasound Fermin Lovett MD [facility] US ORDERABLES Penny islas Result documented in this encounter Visit Diagnoses Not on filedocumented in this encounter
--- OUTSIDE RECORDS SUMMARY | 2024-05-31 00:50 | XMS_ITS | Encounter Summary ---
Author Organization [facility] Address [address] [place] [address] Care Team Providers Care Sailor Name Role Phone Unavailable Primary Care Provider Unavailabl e Encounter Details Date Type Department Care Team (Latest Contact Info) Description 06/22/2006 14:50 EST Hospital Encounter [facility] - Other [address] [place] [address] Broderick Ross MD Discharge Disposition: Auto Discharge [...]
--- OUTSIDE RECORDS SUMMARY | 2024-05-31 00:50 | XMS_ITS | Encounter Summary ---
Author Organization [facility] Address [address] [place] [address] Care Team Providers Care Extraction Operator Name Role Phone Unavailable Primary Care Provider Unavailabl e Encounter Details Date Type Department Care Team (Latest Contact Info) Description 12/02/2005 17:43 EDT Hospital Encounter [facility] [place] [address] [place] [address] Villa Rodriguez MD Discharge Disposition: Auto Discharge [...]
--- OUTSIDE RECORDS SUMMARY | 2024-05-31 00:50 | XMS_ITS ---
Author Organization Unknown Address [address] [place] [address] [phone] Phone Care Team Providers Care It Technical Specialist Name Role Phone ROSA ISELA Judge Attending Unavailable Social History Type Status Start Date End Date Code Code Syst em Sex Female Medications Medication Start Date End Date Route Frequency Dose Code Code System Medication Instructions Home Meds Bactrim DS 800MG-160MG Oral Tablet 01/07/2024 Unknown ORAL TWICE A DAY 1 unit(s) 783507 RxNorm TAKE 1 EACH ORAL TWICE A DAY DULoxetine HCl 40MG Oral Capsule, Delayed Release 01/07/2024 Unknown ORAL DAILY 40 MILLIGRAMS 991723 RxNorm TAKE 40 MILLIGRAM S ORAL DAILY Gabapentin 300MG Oral Capsule 01/07/2024 Unknown ORAL DAILY 300 MILLIGRAMS 284276 RxNorm TAKE 300 MILLIGRAM S ORAL DAILY Gabapentin 300MG Oral Tablet 01/07/2024 Unknown ORAL BEDTIME 1200 MILLIGRAMS 1287088 RxNorm TAKE 1200 MILLIGRAM S ORAL BEDTIME Januvia 25MG Oral Tablet 01/07/2024 Unknown ORAL DAILY 25 MILLIGRAMS 327032 RxNorm TAKE 25 MILLIGRAM S ORAL DAILY Jardiance 10MG Oral Tablet 01/07/2024 Unknown ORAL DAILY 10 MILLIGRAMS 0849905 RxNorm TAKE 10 MILLIGRAM S ORAL DAILY Lantus SoloStar 100U/1ML Subcutaneous Solution 01/07/2024 Unknown SUBCUTAN EOUS BEDTIME 40 UNIT RxNorm INJECT 40 UNIT SUBCUTANE OUS BEDTIME Lidocaine 5% Topical application Patch, Extended Release 01/07/2024 Unknown TOPICAL APPLICAT ION DAILY 1 unit(s) 8442405 RxNorm 1 EACH TOPICAL APPLICATI ON DAILY Omeprazole 40MG Oral Capsule, Delayed Release 01/07/2024 Unknown ORAL DAILY 40 MILLIGRAMS 093052 RxNorm TAKE 40 MILLIGRAM S ORAL DAILY Ondansetron 4MG Oral Tablet, Disintegrating 01/07/2024 Unknown ORAL NEEDED EVERY 6 HOURS 4 MILLIGRAMS 374405 RxNorm TAKE 4 MILLIGRAM S ORAL NEEDED EVERY 6 HOURS Reglan 10MG Oral Tablet 01/07/2024 Unknown ORAL NEEDED EVERY 6 HOURS 10 MILLIGRAMS 432549 RxNorm TAKE 10 MILLIGRAM S ORAL NEEDED EVERY 6 HOURS insulin aspart 100U/1ML Injection Solution 01/07/2024 Unknown INJECTIO N THREE TIMES A DAY 1 UNIT 209600 RxNorm 1 UNIT INJECTION THREE TIMES A DAY oxyCODONE HCl-acetaminoph en 5MG-325MG Oral Tablet 01/07/2024 Unknown ORAL NEEDED EVERY 6 HOURS 1 TABLET 0903006 RxNorm TAKE 1 TABLET ORAL NEEDED EVERY 6 HOURS traMADol HCl 50MG Oral Tablet 01/07/2024 Unknown ORAL NEEDED EVERY 6 HOURS 50 MILLIGRAMS 044353 RxNorm TAKE 50 MILLIGRAM S ORAL NEEDED EVERY 6 HOURS traZODone hydrochloride 50MG Oral Tablet 01/07/2024 Unknown ORAL BEDTIME 50 MILLIGRAMS 088230 RxNorm TAKE 50 MILLIGRAM S ORAL BEDTIME [...] Date Status Code Code System NAUSEA active 038507967 SNOMED-CT VOMITING active 738642128 SNOMED-CT GASTROPARESIS WITH DM active 06150804 4 SNOMED-CT T2DM active 23410647 SNOMED-CT DIABETES TYPE I 01/06/2024 resolved 90947844 SNO MED-CT GASTROPARESIS 01/06/2024 resolved 617562436 SNOME D-CT Allergies and Adverse Reactions Allergy Substance Reaction Severity Start Date Concern Status Co de Code System No Known Drug Allergies Active 933544094 SNOMED-CT Plan of Treatment No Data Found Encounters Encounter Diagnosis Start Date Code Code Sys tem Vomiting, unspecified 01/06/2024 SNOMED -CT Personal Care Team Section Performer Name Performer Role Active Date Inactive Da te
--- OUTSIDE RECORDS SUMMARY | 2024-05-31 00:50 | XMS_ITS | Encounter Summary ---
Author Organization [facility] Address [address] [place] [address] Care Team Providers Care Director Of Medical Review Name Role Phone Jasmin Jara Primary Care Provider Unavail Trinity Wilson MD Primary Care Provider Encounter Details Date Type Department Care Team (Late st Contact Info) Description 04/02/2004 Results Only [facility] [address] [address] Mervin Arevalo MD [address] [place] [address] [phone] Social History Tobacco Use Types [...] Result No Neisseria gonorrhoeae DNA detected by pharmacy teacher mediated amplification. [facility] Report Status Final [id number] [facility] Specimen Description [facility] 04/02/2004 15:5 8 EDT 04/02/2004 22:22 EDT us Mervin Arevalo MD MICROBIOLOGY - GENERAL ORDERAB LES Final Result Performing Organization Address [facility] de Phone Number [facility] [address] [place] [address] * CHLAMYDIA TRACHOMATIS AMPLIFIED PROBE (04/02/2004 15:58 EDT) Specimen Description [facility] Result No Chlamydia trachomatis DNA detected by pharmacy teacher mediated amplification. [facility] Report Status Final [id number] [facility] 04/02/2004 15:5 8 EDT 04/02/2004 22:21 EDT us Mervin Arevalo MD MICROBIOLOGY - GENERAL ORDERAB LES Final Result Performing Organization Address [facility] de Phone Number [facility] [address] [place] [address] * CYTOPATHOLOGY (04/02/2004 0:00 EDT) Pathology Report: CYTOPATHOLOGY REPORT Reports generated via electronic interface contain original data; however they are lacking the format of the original report. Caution should be taken when reading/interpreti ng unformatted reports. Name: ? CRISTY DEL VALLE ? Accession #: ? [id number] : ? 1985 (Age: 19) ??F ?Collect [...] End of Report [facility] 04/02/2004 04/06/2004 us Mervin Arevalo MD PATHOLOGY ORDERABLES Final Res ult [facility] [address] [place] [address] documented in this encounter Visit Diagnoses Not on filedocumented in this encounter Care Teams Director Of Medical Review Relationship Specialty Start Date End Date Jasmin Jara PA PCP - General 10/06/09 05/09/10 Trinity Samaniego MD [address] [place] [phone] PCP - General 09/16/09 10/05/09 documented as of this encounter
--- OUTSIDE RECORDS SUMMARY | 2024-05-31 00:50 | XMS_ITS | Encounter Summary ---
Author Organization [facility] Address [address] [place] [address] Care Team Providers Care Bushwalking Guide Name Role Phone Unavailable Primary Care Provider Unavailabl e Encounter Details Date Type Department Care Team (Late st Contact Info) Description 08/23/2007 Office Visit [facility] - [facility] conversion [address] [place] [address] Naomi Graham PA Social History Tobacco Use [...] Your Current Medications: Continue current medications. Follow-up: [facility], , [address] [place] [address], [address]. Follow up as needed. PAYAL [facility], , [facility], [address] [place], [address]. Follow up. Call for the next available appointment. call dr shahid [phone] and follow up in 2-3 weeks. Understanding [...] call you tomorrow to make an appointment ([phone]) . (Electronically signed by Aubrey Diana, 08/24/2007 [...] --1023 Antonella Reynaga R.N.. NURSING PROGRESS NOTES (Thread Clipper at bedside speaking w/ pt. Warm blanket [...] R.N. Patient transported to MRI by wheelchair. --164 Rosa Handley R.N. Urine test negative. --1653 [...] 113 / 65. HR: 120. RR: 20. (Hillman to bedside. Pt waiting for d/c.). --2016 [...] Patient verbalized understanding. Written instructions provided in Luxembourger. The patient was accompanied by computer support specialist. The patient left the Emergency Department ambulatory. --2102 Rosa Handley R.N.. Rob Devine R.N. Student Nurse Locked/Released at 08/24/2007 15:04 by Silvia Shepard R.N. documented in this encounter Plan of Treatment Not on file documented as of this encounter Visit Diagnoses Not on filedocumented in this encounter
--- OUTSIDE RECORDS SUMMARY | 2024-05-31 00:50 | XMS_ITS | Encounter Summary ---
Author Organization [facility] Address [address] [place] [address] Care Team Providers Care Barrel Repairer Name Role Phone Unavailable Primary Care Provider Unavailabl e Encounter Details Date Type Department Care Team (Late st Contact Info) Description 01/27/2004 Office Visit [facility] - [place] conversion [address] [place] [address] Samira Fong MD [address] [place] [address] Social History Tobacco Use Types Packs/Day Years [...] SOCIAL HISTORY Nonsmoker. FAMILY HISTORY works at [employer] ADDITIONAL NOTES The nursing notes have been [...] hot water. Pain level now: 11/13. Treatment REHABILITATION CONSULTANT: ice and (arrives with dressing on right [...] The patientwas discharged home and accompanied by solar sales. The patient left the Emergency Department ambulatory and via private vehicle. Departure time: 14:31 --1431 Rob Cardoso R.N. Locked/Released at 01/26/2004 14:31 by Lara Sparks R.N. documented in this encounter Plan of Treatment Not on file documented as of this encounter Visit Diagnoses Not on filedocumented in this encounter
--- OUTSIDE RECORDS SUMMARY | 2024-05-31 00:50 | XMS_ITS | Encounter Summary ---
Author Organization [facility] Address [address] [place] [address] Care Team Providers Care Siding Applicator Name Role Phone Unavailable Primary Care Provider Unavailabl e Encounter Details Date Type Department Care Team (Late st Contact Info) Description 09/27/2005 9:47 EDT Hospital Encounter [facility] [address] [place] [address] Oscar Moreno MD MSc [address] [place] [address] Social History Tobacco Use Types Packs/Day Years Used Date Smoking Tobacco: Every Day Cigarettes 0.5 13.6 Started: 11/10/2010 Smokeless Tobacco: Never Comments:06/13/20 actively try ing to quit about 5-8 cigs/day Alcohol Use Standard Drinks/Week Comments Yes 0 (1 standard drink = 0.6 oz pur e alcohol) rarely [facility] Utilities Answer Date Recorded In the past 12 months has [employer], gas, oil, or water [employer] threatened to shut off services in your [...] your living situation today? I have a [facility] place to live 04/03/2024 Think about [...] the past 12 months has th e [employer], gas, oil, or water [employer] threatened to shut off services in your [...]
--- OUTSIDE RECORDS SUMMARY | 2024-05-31 00:50 | XMS_ITS | Encounter Summary ---
Author Organization [facility] Address [address] [place] [address] Care Team Providers Care Internal Wholesaler Name Role Phone Unavailable Primary Care Provider Unavailabl e Encounter Details Date Type Department Care Team (Late st Contact Info) Description 09/27/2005 Before PRISM Converted Visit (Map[facility]) [facility] - Maple conversion [address] [place] [address] Oscar Moreno MD MSc [address] [place] [address] Social History Tobacco Use Types Packs/Day Years [...] 1819 EST OF SURGICAL ONCOLOGY - BREAST CARE CENTER HISTORY AND PHYSICAL/CONSULTATION - 09/27/2005 Reason [...] or drug addictions. She is employed at [employer]. She is single and lives at home with her family. CLOTH SHRINKER history: Menarche at age 11. She continues [...] historyof ovarian cancer. The patient is of Ethiopian and Yoruba background. Review of systems: Constitutional: The patient [...] sonographic abnormality in the right breast. Diagnostics: [facility] Radiology report dated 09/21/05. Right [...] patient the name and number for the [facility] to help in herpursuit to arrange primary care. Signed by Oscar Moreno MD 10/06/2005 07:27 Nery Del Valle MD Oscar Moreno MD - Oscar Moreno MD P - KKB Job ID: [id number] Document ID: [id number] cc: Kamini Gore MD documented in this encounter Plan of Treatment Not on file documented as of this encounter Visit Diagnoses Not on filedocumented in this encounter
--- OUTSIDE RECORDS SUMMARY | 2024-05-31 00:50 | XMS_ITS | Encounter Summary ---
Author Organization [facility] Address [address] [place] [address] Care Team Providers Care Chicken Raiser Name Role Phone Unavailable Primary Care Provider Unavailabl e Encounter Details Date Type Department Care Team (Late st Contact Info) Description 03/31/2005 1:30 EDT Hospital Encounter [facility] - Other [address] [place] [address] Bhupendra Mayo MD [address] [facility] [address] [place] [phone] Social History Tobacco Use Types Packs/Day Years Used Date Smoking Tobacco: Every Day Cigarettes 0.5 13.6 Started: 11/10/2010 Smokeless Tobacco: Never Comments:06/13/20 actively try ing to quit about 5-8 cigs/day Alcohol Use Standard Drinks/Week Comments Yes 0 (1 standard drink = 0.6 oz pur e alcohol) rarely [facility] Utilities Answer Date Recorded In the past 12 months has [employer], gas, oil, or water [employer] threatened to shut off services in your [...] No 11/15/2023 Housing Stability Vital Sign Answer Nrom e Recorded In the last 12 months, [...] your living situation today? [facility] 04/03/2024 Think about [...] the past 12 months has th e [employer], gas, oil, or water [employer] threatened to shut off services in your [...] 03/31/2005 13:1 8 EDT 03/31/2005 20:04 EDT us A Josep Mayo MD CHEMISTRY & BLOOD GAS ORDERABLES Final Result [facility] [address] [place] [address] documented in this encounter Visit Diagnoses Not on filedocumented in this encounter Additional Health Concerns Infection Onset Date Last Indicated Resolved Time R/O COVID-19 08/04/2020 08/04/2020 08/04/2020 11:4 0 EST documented as of this encounter
--- OUTSIDE RECORDS SUMMARY | 2024-05-31 00:50 | XMS_ITS | Encounter Summary ---
Author Organization [facility] Address [address] [place] [address] Care Team Providers Care Performance Specialist Name Role Phone Unavailable Primary Care Provider Unavailabl e Encounter Details Date Type Department Care Team (Late st Contact Info) Description 09/21/2005 7:24 EDT - 09/21/2005 11:[address] [facility] [address] [place] [address] Nathaniel Argueta MD [address] [facility] [address] [place] [phone] Discharge Disposition: Auto Discharge Social History Tobacco [...] were discussed with the patient by the yarn mercerizer operator at the time of the exam. [...] were discussed with the patient by the yarn mercerizer operator at the time of the exam. OVERALL ASSESSMENT - NEGATIVE END OF IMPRESSION us Nathaniel Karely Argueta MD IMG US ORDERABLES Final Result documented in this encounter Visit Diagnoses Not on filedocumented in this encounter
--- OUTSIDE RECORDS SUMMARY | 2024-05-31 00:50 | XMS_ITS | Encounter Summary ---
Author Organization [facility] Address [address] [place] [address] Care Team Providers Care Patient Care Manager Name Role Phone Unavailable Primary Care Provider Unavailabl e Encounter Details Date Type Department Care Team (Latest Contact Info) Description 08/23/2007 10:09 EDT - 08/23/2007 11:59 EDT Hospital Encounter [facility] [address] [place] [address] Emergency, Default, MD Discharge Disposition: Home or [...] right, and left frontal sinus inflammatory disease. us Subhadeep Jeff MARTÍNEZ [facility] MRI ORDERABLES Final Res ult * (ABNORMAL) GLUCOSE, SERUM (08/23/2007 14:50 EDT) Glucose, Serum 124(H) 70 - 100 mg/dl [facility] 08/23/2007 14:5 0 EDT 08/23/2007 15:01 EDT us Default Emergency MD CHEMISTRY & BLOOD GAS ORDER HAILEY Final Result Performing Organization Address [facility] de Phone Number [facility] [address] [place] [address] * PHOSPHORUS (08/23/2007 14:50 EDT) Phosphorus 3.1 2.5 - 4.5 mg/dl [facility] 08/23/2007 14:5 0 EDT 08/23/2007 15:01 EDT us Default Emergency MD CHEMISTRY & BLOOD GAS ORDER HAILEY Final Result Performing Organization Address [facility] Phone Number [facility] [address] [place] [address] * MAGNESIUM (08/23/2007 14:50 EDT) Magnesium 1.9 1.7 - 2.8 mg/dl [facility] 08/23/2007 14:5 0 EDT 08/23/2007 15:01 EDT us Default Emergency MD CHEMISTRY & BLOOD GAS ORDER HAILEY Final Result Performing Organization Address [facility] de Phone Number [facility] [address] [place] [address] * ELECTROLYTES (08/23/2007 14:50 EDT) Sodium 142 136 - 145 mEq/L [facility] Potassium 4.2 3.5 - 5.0 mEq/L [facility] Chloride 105 96 - 110 mEq/L [facility] CO2 25 24 - 32 mEq/L [facility] 08/23/2007 14:5 0 EDT 08/23/2007 15:01 EDT us Default Emergency MD CHEMISTRY & BLOOD GAS ORDER HAILEY Final Result Performing Organization Address City/[facility]/ZIP Co de Phone Number [facility] [address] [place] [address] * HOLD BLUE TOP (08/23/2007 14:50 EDT) Pathologist [facility] Hold Blue Top Sample for coagulation will be discarded after 4 hours [facility] 08/23/2007 14:5 0 EDT 08/23/2007 15:01 EDT us Default Emergency MD LAB INFO SERVICE AND SUPPOR T & PHONE RESULT Final Result Performing Organization Address [facility] Co de Phone Number [facility] [address] [place] [address] * FOLATE (08/23/2007 14:50 EDT) [facility] Folate >24.0 ng/mL [facility] Comment: Deficient: ??Less than 3.4 ng/mL Indeterminate: ??3.4-5.4 ng/mL Normal: ??Greater than 5.4 ng/mL 08/23/2007 14:5 0 EDT 08/23/2007 15:01 EDT us Default Emergency CHEMISTRY & BLOOD GAS ORDER HAILEY Final Result Performing Organization Address [facility] Co de Phone Number [facility] [address] [place] [address] * (ABNORMAL) CREATININE (08/23/2007 14:50 EDT) [facility] Creatinine 0.66(L) 0.7 - 1.5 mg/dl [facility] GFR, Calculated >60 ml/min/1.7 3m2 [facility] 08/23/2007 14:5 0 EDT 08/23/2007 15:01 EDT us Default Emergency CHEMISTRY & BLOOD GAS ORDER HAILEY Final Result Performing Organization Address City/[facility]/ZIP Co de Phone Number [facility] [address] [place] [address] * CK (08/23/2007 14:50 EDT) CK 68 30 - 135 U/L [facility] 08/23/2007 14:5 0 EDT 08/23/2007 15:01 EDT us Default Emergency MD CHEMISTRY & BLOOD GAS ORDER HAILEY Final Result [facility] [address] [place] [address] * (ABNORMAL) HEMAGRAM AND DIFFERENTIAL (08/23/2007 14:50 EDT) WBC 11.97 4.0 - 12.4 K/cmm [facility] RBC 4.54 3.86 - 5.04 M/cmm [facility] Hemoglobin 13.4 11.6 - 15.2 [...] [facility] Type of Diff: Automated [facility] 08/23/2007 14:5 0 EDT 08/23/2007 15:01 EDT us Default Emergency PACKAGES & DNA PROBE ORDERA BLES Final Result Performing Organization Address [facility] de Phone Number [facility] [address] [place] [address] * CALCIUM (08/23/2007 14:50 EDT) Calcium 10.0 8.5 - 10.5 mg/dl [facility] Calculated Calcium 10.0 8.5 - 10.5 mg/dl [facility] 08/23/2007 14:5 0 EDT 08/23/2007 15:01 EDT us Default Emergency CHEMISTRY & BLOOD GAS ORDER HAILEY Final Result Performing Organization Address [facility] de Phone Number [facility] [address] [place] [address] * BUN (08/23/2007 14:50 EDT) BUN 12 10 - 26 mg/dl [facility] 08/23/2007 14:5 0 EDT 08/23/2007 15:01 EDT us Default Emergency CHEMISTRY & BLOOD GAS ORDER HAILEY Final Result Performing Organization Address City/[facility] de Phone Number [facility] [address] [place] [address] documented in this encounter Visit Diagnoses Not on filedocumented in this encounter
--- OUTSIDE RECORDS SUMMARY | 2024-05-31 00:50 | XMS_ITS | Encounter Summary ---
Author Organization [facility] Address [address] [place] [address] Care Team Providers Care Shipping And Receiving Name Role Phone Unavailable Primary Care Provider Unavailabl e Encounter Details Date Type Department Care Team (Late st Contact Info) Description 01/26/2004 12:26 EDT Hospital Encounter [address] [address] Samira Fong MD [address] [place] [address] Social History Tobacco Use Types Packs/Day Years Used Date Smoking Tobacco: Every Day Cigarettes 0.5 13.6 Started: 11/10/2010 Smokeless Tobacco: Never Comments:06/13/20 actively try ing to quit about 5-8 cigs/day Alcohol Use Standard Drinks/Week Comments Yes 0 (1 standard drink = 0.6 oz pur e alcohol) rarely [facility] Utilities Answer Date Recorded In the past 12 months has [employer], gas, oil, or water [employer] threatened to shut off services in your [...] any time in the past 12 m [facility], were you homeless or living [...] your living situation today? I have a [facility] place to live 04/03/2024 Think about the [...] the past 12 months has th e [employer], gas, oil, or water [employer] threatened to shut off services in your [...]
[2024-05-31 01:06] LABS: Abs Immature Grans 0.09 10^3/uL (0.0-0.06); Absolute Basophil Count 0.05 10^3/uL (0.0-0.2); Basophils % 0.3 %; HCT 46.8 % (36.0-46.0); HGB 16.6 g/dL (11.2-15.7); Immature Grans % 0.5 %; Lymphocytes % 11.8 %; MCH 31.3 pg (27.0-33.0); MCHC 35.5 % (32.0-36.0); MCV 88 fL (80-95); MPV 9.8 fL (8.0-11.0); Monocytes % 5.3 %; Neutrophils % 82.1 %; Platelet Count 401 10^3/uL (130-400); RDW 12.4 % (11.7-14.6); RDW-SD 40.5 fL; WBC 16.55 10^3/uL (4.4-10.8)
[2024-05-31 01:07] LABS: Absolute Lymphocyte Count 1.95 10^3/uL (1.2-3.4); Absolute Monocyte Count 0.88 10^3/uL (0.1-0.8); Absolute Neutrophil Count 13.59 10^3/uL (1.2-6.7)
[2024-05-31] MEDS: Ondansetron 4 MG/2 ML VIAL IVP (01:15)
[2024-05-31] MEDS: Metoclopramide 10 MG/2 ML VIAL IVP (01:15)
[2024-05-31] MEDS: Normal Saline 1,000 ML 1000 ML IV ×2 (01:16→02:43)
[2024-05-31 01:21] LABS: ALT 23 U/L (14-59); AST 16 U/L (15-37); Alkaline Phosphatase 154 U/L (46-116); Anion Gap 16.5 mmol/L (3-11); BUN 18 mg/dL (7-18); Bilirubin, Total 0.59 mg/dL (0.2-1.0); CO2 28.5 mmol/L (21.0-32.0); CREATININE 1.1 mg/dL (0.55-1.02); Calcium 10.1 mg/dL (8.5-10.1); Chloride 97 mmol/L (98-107); Estimated GFR 65.55 (mL/min/1.73m2); Glucose 378 mg/dL (74-106); Magnesium 1.8 mg/dL (1.8-2.4); Potassium 3.6 mmol/L (3.5-5.1); Sodium 142 mmol/L (136-145); Total Protein 8.4 g/dL (6.4-8.2)
[2024-05-31 01:27] LABS: Lipase 29 U/L (<78)
[2024-05-31 03:23] LABS: Bilirubin Negative (Negative); Blood Trace-intact (Negative); Clarity Clear (Clear); Glucose 500 mg/dL (Negative); Ketones >=160 mg/dL (Negative); Leukocyte Esterase Negative (Negative); Nitrite Negative (Negative); Specific Gravity 1.025 (1.005-1.025); Urobilinogen 0.2 mg/dL (Up to 0.2); pH 5.5 (5-8)
[2024-05-31 03:30] LABS: Bacteria Rare HPF (Negative); C & S Indicated? No; Casts Negative LPF (Negative); Crystals Negative HPF (Negative); Epithelial Cells Rare HPF (Negative); Mucus Negative (Negative); RBC 0-2 HPF (0-2); WBC 0-2 HPF (0-5)
[2024-05-31] MEDS: Droperidol 5 MG/2 ML VIAL 1.25 MG IVP (03:37)
[2024-05-31] MEDS: Famotidine 20 MG/2 ML VIAL IVP (03:56)
[2024-05-31 04:08] LABS: BE (Venous) 1 mmol/L (-2-3); HCO3 (Venous) 26 mmol/L (23-28); O2 Sat (Venous) 71 %; TCO2 (Venous) 23 mmol/L (24-29); pCO2 (Venous) 45 mmHg (41-51); pH (Venous) 7.37 (7.31-7.41); pO2 (Venous) 37 mmHg
[2024-05-31 04:13] LABS: Lab Add On Test DONE
[2024-05-31 04:17] LABS: HCG Qual (Urine) Negative
[2024-05-31 04:26] LABS: Anion Gap 16.4 mmol/L (3-11); BUN 17 mg/dL (7-18); CO2 26.6 mmol/L (21.0-32.0); CREATININE 0.9 mg/dL (0.55-1.02); Chloride 103 mmol/L (98-107); Glucose 289 mg/dL (74-106); Potassium 3.6 mmol/L (3.5-5.1); Sodium 146 mmol/L (136-145)
--- NOTE | 2024-05-31 06:26 | HPE_ITS ---
Date of service: 05/31/24 Time of Service: 06: Assessment and Plan Assessment and plan (1) Intractable nausea and vomiting: Start date: 05/31/24 Status: Acute Assessment and plan: This is a 39-year-old lady with chronic gastroparesis and some cannabinoid hyperemesis syndrome though she has smoked less recently presenting with intractable nausea and vomiting and diarrhea the day prior to presentation. Did not respond to antiemetics in the ED and does have an elevated anion gap receiving 2 L of normal saline and now on lactated ringer. Will need outpatient labs. He is a diabetic but is poorly controlled with complications including amputation and recent osteomyelitis the last 6 months. She has not been on antibiotics recently. She has had no fever. She does have chronic elevated WBC. Blood cultures will be performed with CRP and labs will be trended. She does not appear septic at this time. She is tachycardic but not hypotensive she has had no fever. Most likely cause of her increased vomiting recently may be increased stress and her gastroparesis with recurrent bouts with the same presentation usually requiring hospitalization and IV hydration with bowel rest. If diarrhea, imaging and further stool studies may be entertained. She is a full code. (2) Gastroparesis: Assessment and plan: Better control diabetes would be helpful and follow-up GI as needed. (3) Cannabinoid hyperemesis syndrome: Status: Chronic Assessment and plan: Patient advised to have complete cessation of use of marijuana. May be some self treatment with increased anxiety and stress recently. (4) Diabetes: Assessment and plan: Hold outpatient medical therapy with moderate sliding scale coverage with insulin ACHS. Patient will be on clear fluid diabetic diet. (5) IBS (irritable bowel syndrome): Assessment and plan: Most likely secondary to chronic psychiatric disease exacerbating her gastroparesis. Follow-up GI as needed. (6) Anxiety and depression: Assessment and plan: Continue outpatient medical therapy as tolerated. History of Present Illness History of Present Illness Chief Complaint: Intractable nausea and vomiting with gastroparesis, THC use Narrative: This is a 39-year-old female patient has known gastroparesis and recurrent episodes of intractable vomiting. She was presented to the ED after intractable nausea and vomiting since [place] morning the day prior. She does have a history of cannabis hyperemesis and gastroparesis with poorly controlled diabetes. She denies any fever or sweats, no abdominal pain and no mention of severe diarrhea having a couple of bouts of loose stools the onset of nausea and vomiting [place] morning which did not continue. Patient has had increased stress recently with her daughter making false accusations according to partner. The patient was given multiple antiemetics in the ED and IV hydration but was not tolerating clear fluids. She will be admitted for IV hydration and treatment of her nausea and vomiting covering her diabetic treatment while hospitalized. She does have significant psychiatric disease as well and increased stress recently as mentioned. She had complications of diabetes with neuropathy and amputations having transmetatarsal amputation of her left foot with questionable osteomyelitis in the fall 2023. She was given PPI in the ED without results. No imaging was performed. She did have an elevated anion gap, elevated WBC which is chronic without fever or signs of recent infection and she did have hyperglycemia with urinalysis benign for possible infection. Urine culture was not indicated and blood cultures were performed because of her history of osteomyelitis and increased WBC though this does not appear to be sepsis. She is a full code. Review of Systems Narrative: 13 point review of systems otherwise unrevealing or stable. Patient does have chronic abdominal symptoms but no abdominal pain presently. [facility] All Active Problems (Updated 05/31/24 @ 06:33 by Broderick Rubi) Back pain (Acute) Phantom limb pain (Acute) Contracture, plantar fascia (Acute) Neuropathic ulcer of left foot with fat layer exposed (Acute) Abnormal CT of the abdomen (Acute) Gallbladder sludge (Acute) Intractable nausea and vomiting (Acute) Osteomyelitis of left foot (Acute) Corns and callosities (Acute) Chronic nausea (Acute) Vomiting (Acute) Tobacco abuse (Acute) Cannabinoid hyperemesis syndrome (Chronic) Medical History DVT (deep venous thrombosis) Gastroparesis Ulcerative esophagitis History of osteomyelitis IBS (irritable bowel syndrome) History of kidney stones Suicide attempt Anxiety and depression Diabetic neuropathy Diabetes Type 1, per patient she said she was told she had diabetes type 2. 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 Maternal Cousin Breast cancer Maternal Cousin Breast cancer Maternal Cousin Breast cancer Social History Smoking/Tobacco Use Status: Current every day Tobacco Type: cigarettes Smoking risk assessment performed?: Yes Alcohol Intake: current Alcohol Intake frequency: holidays/special occasions only Drug use: Daily Substance use type: marijuana Housing: house Do you feel safe at home: Yes Do you feel safe in your relationship?: Yes Meds Allergies and Home Medications Allergies Allergy/AdvReac Type Severity Reaction Status Date / Time ibuprofen (From Advil) Allergy Severe Anaphylaxis Verified 05/31/24 00:41 pomegranate Allergy Severe Anaphylaxis Verified 05/31/24 00:41 citalopram AdvReac Severe Bodily harm Verified 05/31/24 00:41 Home Medications ?Medication ?Instructions ?Recorded ?Confirmed ?Type blood-glucose sensor (Dexcom G6 #6 ea 05/03/22 05/31/24 Rx Sensor device) lidocaine 5 % topical patch 1 patch topical DIRECTED 05/25/22 05/31/24 History (Lidoderm) tramadol 50 mg tablet 50 mg PO Q6H PRN PRN #30 tabs 08/28/22 05/31/24 Rx omeprazole 40 mg capsule,delayed 40 mg PO DAILY #30 caps 11/09/22 05/31/24 Rx release ondansetron 4 mg disintegrating 4 mg PO Q6H PRN #60 tabs 02/20/23 05/31/24 Rx tablet duloxetine 40 mg capsule,delayed 40 mg PO DAILY 05/24/23 05/31/24 History release gabapentin 300 mg tablet 300 - 900 mg PO DIRECTED 09/08/23 05/31/24 History honey 80 % topical gel (MediHoney 1 applic topical DAILY #44 mL 10/18/23 05/31/24 Rx (honey)) metoclopramide HCl 10 mg tablet 10 mg PO Q6H PRN 12/30/23 05/31/24 History (Reglan) insulin aspart U-100 100 unit/mL 15 unit subcut TID 01/18/24 05/31/24 History (3 mL) subcutaneous pen (Novolog FlexPen U-100 Insulin aspart) insulin glargine 100 unit/mL (3 50 unit subcut HS 01/18/24 05/31/24 History mL) subcutaneous pen (Lantus Solostar U-100 Insulin) cyclobenzaprine 10 mg tablet 10 mg PO TID PRN muscle spasm #7 02/06/24 05/31/24 Rx tabs nortriptyline 10 mg capsule 10 mg PO QHS 02/27/24 05/31/24 History Exam Narrative Exam Narrative: General: Patient appears appropriate for age, flattened affect with depressed mood, alert and oriented x 3 and in moderate distress from her nausea. She is morbidly obese. HEENT: Normocephalic, eyes with pupils equal and reactive to light symmetrically, extraocular movement intact and sclera anicteric. Oral mucosa dry with fair dentition. Neck: Supple without JVD. Back: Stooped posture without CVA tenderness. Lungs: Clear to auscultation percussion with no focalizing rales or rhonchi. Normal vesicular breath sounds. Breast: Exam deferred. Heart: Tachycardic rate with normal rhythm. No appreciable murmur or gallop. Abdomen: Obese contour, soft and nontender to palpation no palpable hepatosplenomegaly. Bowel sounds positive all quadrants. Genitalia/rectal: Exam deferred. Skin: Normal color, warm and dry. Extremities: Without clubbing, cyanosis or grossly pitting edema. Patient does have chronic nonpitting edema both lower extremities. Transmetatarsal amputation of her left foot with a sock covering but and wounds not evaluated. She does have chronic wounds attended by orthopedist.. Capillary refill. Neuro: Cranial nerves II through XII gross intact, no focalized motor deficits. No tremor. Patient does have a history of decreased sensation lower extremities Psych: Flattened affect and depressed mood. No abnormal thought processes. Recent and remote memory intact. Slow monotonous tone to voice. Results Labs 05/31/24 01:00 05/31/24 04:05 Labs: Laboratory Results - last 24 hr 05/31/24 05/31/24 05/31/24 01:00 03:10 04:05 WBC 16.55 H RBC 5.30 H Hgb 16.6 H Hct 46.8 H MCV 88 MCH 31.3 MCHC 35.5 RDW 12.4 Plt Count 401 H MPV 9.8 Immature Gran % 0.5 Neutrophils % 82.1 Lymphocytes % 11.8 Monocytes % 5.3 Eosinophils % 0.0 Basophils % 0.3 Nucleated RBC % 0.0 Absolute Neutrophils 13.59 H Absolute Lymphocytes 1.95 Absolute Monocytes 0.88 H Absolute Eosinophils 0.00 Absolute Basophils 0.05 VBG pH 7.37 VBG pCO2 45 VBG pO2 37 VBG HCO3 26 VBG Total CO2 23 L VBG O2 Saturation 71 VBG Base Excess 1 Sodium 142 146 H Potassium 3.6 3.6 Chloride 97 L 103 Carbon Dioxide 28.5 26.6 Anion Gap 16.5 H 16.4 H BUN 18 17 Creatinine 1.1 H 0.9 Est GFR (CKD-EPI 2020) 65.55 83.40 Glucose 378 H 289 H Calcium 10.1 9.0 Magnesium 1.8 Total Bilirubin 0.59 AST 16 ALT 23 Alkaline Phosphatase 154 H Total Protein 8.4 H Albumin 4.0 Lipase 29 Urine Color Yellow Urine Clarity Clear Urine pH 5.5 Ur Specific Kirby 1.025 Urine Protein 30 H Urine Ketones >=160 H Urine Blood Trace-intact H Urine Nitrite Negative Urine Bilirubin Negative Urine Urobilinogen 0.2 Ur Leukocyte Esterase Negative Urine RBC 0-2 Urine WBC 0-2 Ur Epithelial Cells Rare Urine Crystals Negative Urine Bacteria Rare Urine Casts Negative Urine Mucus Negative Ur Culture Indicated? No Urine Glucose 500 H Urine HCG, Qual Negative Add-On Test Request DONE Last Vital Signs Temp 37.1 C 05/31/24 01:08 Pulse 153 H 05/31/24 05:00 Resp 23 05/31/24 05:01 BP 121/67 05/31/24 05:00 Pulse Ox 96 05/31/24 05:01 Time Spent Time spent with Patient: >75 minutes Time was spent: preparing to see the patient(eg.review tests), obtaining and/or reviewing separately otained hiistory, ordering medications,tests, procedures, indepentently interpreting results, counseling the patient and care coordination
[2024-05-31] MEDS: Lactated Ringers 1,000 ML 150 ML IV (07:16)
--- OUTSIDE RECORDS SUMMARY | 2024-05-31 07:22 | XMS_ITS | Encounter Summary ---
[facility] [place] [address] Care Team Providers Care Mgmt Consultant Name Role Phone Carrington Calderon MD Primary Care Provider [phone] Encounter Details Date Type Department Care Team (Late st Contact Info) Description 02/07/2024 Telephone [place] [address] None None Social History Tobacco [...] MD / Treating provider: Message: Niru from [facility] called and stated that they received the referral for the patients MRI. Niru stated in addition to the referral they received, theywill need a Hard copy of the Insurance Authorization, Patients Insurance Information, and the safety questionaire. Please call with any questions. Caller Name (If other than patient): Niru - Radiology Relationship to Patient (if other than self): [facility], [place], [place] Radiology Callback number: [phone] Best time you are available: Any Route Per Clinic Coverage Page documented in this encounter Plan of Treatment Not on file documented as of this encounter Visit Diagnoses Not on filedocumented in this encounter Care Teams Mgmt Consultant Relationship Specialty Start Date End Date Carrington Calderon MD 1 [facility] 1 [place] [address] PCP - General Internal Medicine 01/16/24 documented as of this encounter
--- OUTSIDE RECORDS SUMMARY | 2024-05-31 07:22 | XMS_ITS | Encounter Summary ---
Author Organization [facility] Address [facility] [place] [address] Care Team Providers Care Urologist Md Name Role Phone Carrington Calderon MD Primary Care Provider [phone] Encounter Details Date Type Department Care Team (Late st Contact Info) Description 02/03/2024 Orders Only Infectious Disease at [facility] [place] [address] Jackie Javier MD [facility] [address] [place]FECTI[place] [address] Diabetic foot ulcer with osteomyelitis Social History [...] Non-fasting (02/10/2024) Glucose Lvl - External 463(H) [facility] Blood Urea Nitrogen - External 11 [facility] Creatinine - External 0.8 [facility] Sodium - External 129(L) [facility] Potassium - External 4.1 [facility] Chloride - External 93 [facility] Calcium - External 9.4 [facility] Protein, Total - External 7.5 [facility] Albumin - External 3 [facility] Total Bilirubin - External 0.1 [facility] Alk Phos - External 120 [facility] AST (SGOT) - External 12 [facility] ALT (SGPT) - External 16 [facility] Blood VENOUS BLOOD SPECIMEN / Unknown 02/10/2024 Jackie Javier MD CHEMISTRY ORDERABLES [address] [place], [place] [id number] [place] [address] * CRP, acute inflammation (02/10/2024) CRP - External 10 mg/L [facility] Blood VENOUS BLOOD SPECIMEN / Unknown 02/10/2024 Jackie Javier MD CHEMISTRY ORDERABLES [address] [place], [place] [id number] [place] [address] * (ABNORMAL) CBC (with Diff) (02/10/2024) WBC - External 15.71(H) [facility] Hemoglobin - External 14.8 [facility] Platelets - External 401 [facility] Neutr ABS (ANC) - External 10.4(H) [facility] Blood VENOUS BLOOD SPECIMEN / Unknown 02/10/2024 Jackie Javier MD HEMATOLOGY ORDERABLE S Performing Organization Address City/[facility]/ZIP Co de Phone Number [address] [place], [place] [id number] [place] [address] documented in this encounter Visit Diagnoses Diagnosis Diabetic foot ulcer with osteomyelitis Type II or unspecified type diabetes mellitus with other specified manifestations, not stated as uncontrolled documented in this encounter Care Teams Urologist Md Relationship Specialty Start Date End Date Carrington Calderon MD [address] [facility] 1 [place] [phone] PCP - General Internal Medicine 01/16/24 documented as of this encounter
--- OUTSIDE RECORDS SUMMARY | 2024-05-31 07:22 | XMS_ITS | Encounter Summary ---
Author Organization [facility] Address [facility] [address] [place] [id number] Care Team Providers Care Sld Inclusion Teacher Name Role Phone Carrington Calderon MD Primary Care Provider [phone] Reason for Referral * Consultation (Routine) - Closed Specialty Diagnoses / Procedures Referred By Contac t Referred To Contact Infectious Diseases Diagnoses Diabetic foot ulcer with osteomyelitis Jackie Javier MD [facility] [place] [address] Jackie Javier MD [facility] [place] [address] Referral ID Status Reason Start Date Expiration Date V isits Requested Visits Authorized [id number] Closed Assume Subset of Care 02/07/2024 02/06/2025 1 1 Encounter Details Date Type Department Care Team (Late st Contact Info) Description 02/07/2024 Orders [place] [address] Jackie Javier MD [facility] [place] [address] Diabetic foot ulcer with osteomyelitis Social History [...] uncontrolled documented in this encounter Care Teams Sld Inclusion Teacher Relationship Specialty Start Date End Date Carirngton Calderon MD 1 [facility] 1 [place] [address] PCP - General Internal Medicine 01/16/24 documented as of this encounter
--- OUTSIDE RECORDS SUMMARY | 2024-05-31 07:22 | XMS_ITS | Encounter Summary ---
Author Organization [facility] [place] [address] Care Team Providers Care Watch Train Inspector Name Role Phone Carrington Calderon MD Primary Care Provider [phone] Encounter Details Date Type Department Care Team (Late st Contact Info) Description 02/08/2024 Telephone [place] [address] Jackie Javier MD [facility] [place] [address] Social History Tobacco Use Types Packs/Day Years [...] other than self): Diagnostic Imaging Callback number: [phone] Best time you are available: Any documented in this encounter Plan of Treatment Not on file documented as of this encounter Visit Diagnoses Not on filedocumented in this encounter Care Teams Watch Train Inspector Relationship Specialty Start Date End Date Carrington Calderon MD 1 [facility] Level 1 [place] [phone] PCP - General Internal Medicine 01/16/24 documented as of this encounter
--- OUTSIDE RECORDS SUMMARY | 2024-05-31 07:22 | XMS_ITS | Encounter Summary ---
Author Organization [facility] [place] [address] Care Team Providers Care Staff Registered Nurse Name Role Phone Carrington Calderon MD Primary Care Provider [phone] Encounter Details Date Type Department Care Team (Late st Contact Info) Description 03/06/2024 Telephone [place] [address] Olive Anna, RN Social History Tobacco Use Types Packs/Day Years Used Date Smoking Tobacco: Every Day Cigarettes Smokeless Tobacco: Never Sex and Gender Information Value Date Recorded Sex Assigned at Not on file Gender Identity Not on file Sexual Orientation Not on file documented as of this encounter Miscellaneous Notes * Telephone Encounter - Olive Anna, RN - 03/06/2024 12:59 PM EDT This typewriter assembler left message for Cristy but pt did not answer. So this typewriter assembler called the whohas just returned to work [...] filedocumented in this encounter Care Teams Staff Registered Nurse Relationship Specialty Start Date End Date Carrington Calderon MD 1 [facility] Level 1 [place] [address] PCP - General Internal Medicine 01/16/24 documented as of this encounter
--- OUTSIDE RECORDS SUMMARY | 2024-05-31 07:22 | XMS_ITS | Encounter Summary ---
Author Organization [facility] [place] [address] Care Team Providers Care Librarian Name Role Phone Carrington Calderon MD Primary Care Provider [phone] Encounter Details Date Type Department Care Team (Late st Contact Info) Description 02/09/2024 Telephone [place] [address] None None Social History Tobacco Use Types [...] Reason for Call: Medication Issue PCP: Carrington aClderon MD / Treating provider: Yaya Message: Pharmacy called stating that this Rx is not filled through a retail pharmacy typically. This Rx is usually administered to patient through IV by home health provider or in a facility. Name of Medication: dextrose 5% Parenteral Solution Name of Prescriber: Jackie Javier MD Name of Pharmacy: [facility] Address for Pharmacy: [address] [place] [address]/[facility] & State for Pharmacy: [place], [place] Is the Patient Currently at the Pharmacy: No Caller Name (If other than patient): Mignon Relationship to Patient (if other than self): [facility] Callback number: [phone] Best time you are available: Any documented in this encounter Plan of Treatment Not on file documented as of this encounter Visit Diagnoses Not on filedocumented in this encounter Care Teams Librarian Relationship Specialty Start Date End Date Carrington Calderon MD 1 [facility] 1 [place] [address] PCP - General Internal Medicine 01/16/24 documented as of this encounter
--- OUTSIDE RECORDS SUMMARY | 2024-05-31 07:22 | XMS_ITS | Clinical Summary ---
Author Organization [facility] Address [facility] [place] [address] Care Team Providers Care Disposal Operator Name Role Phone Carrington Calderon MD Primary Care Provider [phone] [phone] Allergies Active Allergy Reactions Criticality Noted Date [...] Team Description 03/06/2024 Telephone [place] [phone] Olive Anna RN 03/01/2024 External [place] [address] Jackie Javier MD Diabetic foot ulcer with [...] - Influenza standard series) 02/05/2024 Care Teams Disposal Operator Relationship Specialty Start Date End Date Carrington Calderon MD 1 [facility] Level 1 [place] [phone] PCP - General Internal Medicine 01/16/24
--- OUTSIDE RECORDS SUMMARY | 2024-05-31 07:22 | XMS_ITS | Encounter Summary ---
Author Organization Formerly [facility] [place] [address] Care Team Providers Care Owner Operator Name Role Phone Carrington Calderon MD Primary Care Provider [phone] [phone] Encounter Details Date Type Department Care Team (Latest Contact Info) Description 03/01/2024 External Results Infectious Disease at [facility] [place] [address] Jackie Javier MD [facility] [place] [address] Diabetic foot ulcer with osteomyelitis Social History [...] (with Diff) (02/10/2024) WBC - External 15.71(H) [facility] Hemoglobin - External 14.8 [facility] Platelets - External 401 [facility] Neutr ABS (ANC) - External 10.4(H) [facility] Blood VENOUS BLOOD SPECIMEN / Unknown 02/10/2024 Jackie Javier MD HEMATOLOGY ORDERABLE S Performing Organization Address City/[facility]/ZIP Co de Phone Number [address] [place], [place] [address] [phone] * CRP, acute inflammation (02/10/2024) CRP - External 10 mg/L [facility] Blood VENOUS BLOOD SPECIMEN / Unknown 02/10/2024 Jackie Javier MD CHEMISTRY ORDERABLES Performing Organization Address City/[facility] Co de Phone Number [address] [place], [place] [address] [[email or web address]] [phone] * (ABNORMAL) Comprehensive metabolic panel Non-fasting (02/10/2024) Glucose Lvl - External 463(H) [facility] Blood Urea Nitrogen - External 11 [facility] Creatinine - External 0.8 [facility] Sodium - External 129(L) [facility] Potassium - External 4.1 [facility] Chloride - External 93 [facility] Calcium - External 9.4 [facility] Protein, Total - External 7.5 [facility] Albumin - External 3 [facility] Total Bilirubin - External 0.1 [facility] Alk Phos - External 120 [facility] AST (SGOT) - External 12 [facility] ALT (SGPT) - External 16 [facility] Blood VENOUS BLOOD SPECIMEN / Unknown 02/10/2024 Jackie Javier MD CHEMISTRY ORDERABLES Performing Organization Address City/[facility] Co de Phone Number [address] [place], [place] [address] [[email or web address]] [phone] documented in this encounter Visit Diagnoses Diagnosis Diabetic foot ulcer with osteomyelitis Type II or unspecified type diabetes mellitus with other specified manifestations, not stated as uncontrolled documented in this encounter Care Teams Owner Operator Relationship Specialty Start Date End Date Carrington Calderon MD 1 [facility] Level 1 [place] [phone] PCP - General Internal Medicine 01/16/24 documented as of this encounter
--- OUTSIDE RECORDS SUMMARY | 2024-05-31 07:22 | XMS_ITS | Encounter Summary ---
Author Organization [facility] [address] Care Team Providers Care Purchasing Buyer Name Role Phone Carrington Calderon MD Primary Care Provider [phone] [phone] Reason for Visit * Treatment/Therapy Plan Authorization (Routine) - Pending Review Specialty Diagnoses / Procedures Referred By Contac t Referred To Contact Diagnoses Osteomyelitis, unspecified site, unspecified type Procedures TC DALBAVANCIN, 5 MG, INJECTION Jackie Javier MD [facility] [place] [address] [facility] Med Infusion [address] [place] [phone] Referral ID Status Reason Start Date Expiration Date V isits Requested Visits Authorized [id number] Pending Review 02/03/2024 02/02/2025 99 99 Encounter Details Date Type Department Care Team (Latest Contact Info) Description 02/03/2024 12:12 PM EDT - 02/03/2024 11:59 PM EDT Hospital En[place] [phone] Osteomyelitis, unspecified site, unspecified type; Diabetic foot [...] 12.3(H) <=4.9 mg/L 02/03/2024 1:43 PM EDT [facility] Blood VENOUS BLOOD SPECIMEN / Unknown Venipuncture / Unknown 02/03/2024 12:38 PM EDT 02/03/2024 1:00 PM EDT Jackie Javier MD CHEMISTRY ORDERABLES [facility] [place] [place] [address] * (ABNORMAL) Comprehensive metabolic panel (02/03/2024 12:38 PM EDT) Glucose 306(H) 65 - 199 mg/dL 02/03/2024 1:43 PM [facility] Comment:Glucose Concentratio n >=200 mg/dL plus symptoms is consistent with Diabetes Mellitus. Blood Urea Nitrogen 9 8 - 18 mg/dL 02/03/2024 1:43 PM [facility] Creatinine 0.56(L) 0.70 - 1.20 mg/dL 02/03/2024 1:43 PM [facility] Sodium 133(L) 135 - 145 mMol/L 02/03/2024 1:43 PM [facility] Potassium 4.4 3.5 - 5.0 mMol/L 02/03/2024 1:43 PM [facility] Chloride 96(L) 98 - 107 mMol/L 02/03/2024 1:43 PM [facility] Carbon Dioxide 25 22 - 31 mMol/L 02/03/2024 1:43 PM [facility] Anion Gap 12 5 - 15 mMol/L 02/03/2024 1:43 PM [facility] Calcium 9.8 8.5 - 10.5 mg/dL 02/03/2024 1:43 PM [facility] Protein, Total 7.5 6.1 - 8.0 g/dL 02/03/2024 1:43 PM [facility] Albumin 4.1 3.2 - 5.2 g/dL 02/03/2024 1:43 PM [facility] Aspartate Aminotransferase 12 <=30 unit/L 02/03/2024 1:43 PM [facility] Alanine Aminotransferase 13 0 - 30 unit/L 02/03/2024 1:43 PM [facility] Alkaline Phosphatase 138(H) 35 - 105 unit/L 02/03/2024 1:43 PM [facility] Bilirubin, Total <0.2 <=1.3 mg/dL 02/03/2024 1:43 PM [facility] Est Glomerular Filtration Rate - Female 120 mL/min/1. 73 m?? 02/03/2024 1:43 PM EDT [facility] Comment: This patient's estimated GFR [...] Fasting Status No 02/03/2024 1:43 PM EDT [facility] Blood VENOUS BLOOD SPECIMEN / Unknown Venipuncture / Unknown 02/03/2024 12:38 PM EDT 02/03/2024 1:00 PM EDT Jackie Javier MD CHEMISTRY ORDERABLES [facility] [place] [id number] * (ABNORMAL) CBC (with Diff) (02/03/2024 12:38 PM EDT) White Blood Cell 18.69(H) 4.00 - 9.50 x10(3)/mc L 02/03/2024 1:21 PM EDT [facility] Red Blood Cell 4.62 4.00 - 5.21 x10(6)/mc L 02/03/2024 1:21 PM EDT [facility] Hemoglobin 14.3 11.7 - 15.5 g/dL 02/03/2024 1:21 PM EDT [facility] Hematocrit 43.0 35.7 - 45.8 % 02/03/2024 1:21 PM EDT [facility] Mean Cell Volume 93.1 82.6 - 94.4 fL 02/03/2024 1:21 PM EDT [facility] Mean Cell Hemoglobin 31.0 27.1 - 32.0 pg 02/03/2024 1:21 PM [facility] Mean Cell Hemoglobin Concentration 33.3 31.7 - 35.0 g/dL 02/03/2024 1:21 PM [facility] Platelet 405(H) 145 - 357 x10(3)/mc L 02/03/2024 1: PM [facility] Mean Platelet Volume 9.6 7.6 - 12.9 fL 02/03/2024 1:21 PM [facility] RDW Standard Deviation 43.9 37.0 - 46.0 fL 02/03/2024 1: PM [facility] RDW coefficient of variation 12.9 11.5 - 14.1 % 02/03/2024 1: PM [facility] NRBC% auto 0.0 % 02/03/2024 1: PM [facility] NRBC Absolute 0.00 0.00 - 0.00 x10(3)/mc L 02/03/2024 1: PM [facility] Neutrophil % 63.6 % 02/03/2024 1: PM [facility] Neutrophil Absolute (ANC) - Automated 11.90(H) 1.70 - 6.10 x10(3)/mc L 02/03/2024 1: PM [facility] Lymph % 26.2 % 02/03/2024 1:21 PM [facility] Lymph Absolute 4.90(H) 0.90 - 3.20 x10(3)/mc L 02/03/2024 1: PM [facility] Monocyte % 7.3 % 02/03/2024 1:21 PM [facility] Monocyte Absolute 1.36(H) 0.30 - 0.90 x10(3)/mc L 02/03/2024 1:21 PM [facility] Eos % 2.0 % 02/03/2024 1:21 PM EDT [facility] Eos Absolute 0.37 0.00 - 0.40 x10(3)/mc L 02/03/2024 1:21 PM EDT [facility] Basophil % 0.5 % 02/03/2024 1:21 PM EDT [facility] Baso Absolute 0.09 0.00 - 0.10 x10(3)/mc L 02/03/2024 1:21 PM EDT [facility] Immature Gran % 0.4 % 1:21 PM EDT [facility] Immature Gran Absolute 0.07(H) 0.00 - 0.04 x10(3)/mc L 02/03/2024 1:21 PM EDT [facility] Blood VENOUS BLOOD SPECIMEN / Unknown Venipuncture / Unknown 02/03/2024 12:38 PM EDT 02/03/2024 1:00 PM EDT Jackie Javier MD HEMATOLOGY ORDERABLE S [facility] [place] [id number] documented in this encounter Visit Diagnoses Diagnosis [...] mL/hr documented in this encounter Care Teams Purchasing Buyer Relationship Specialty Start Date End Date Carrington Calderon MD 1 [facility] 1 [place] [phone] PCP - General Internal Medicine 01/16/24 documented as of this encounter
--- OUTSIDE RECORDS SUMMARY | 2024-05-31 07:22 | XMS_ITS | Encounter Summary ---
[place] [address] Care Team Providers Care Station Engineer Chief Name Role Phone Carrington Calderon MD Primary Care Provider +1 -[phone] Encounter Details Date Type Department Care Team (Late st Contact Info) Description 02/03/2024 Telephone [place] [phone] Olive Anna, RN Social History Tobacco Use [...] on filedocumented in this encounter Care Teams Station Engineer Chief Relationship Specialty Start Date End Date Carrington Calderon MD 1 [facility] 1 [place] [address] PCP - General Internal Medicine 01/16/24 documented as of this encounter
--- OUTSIDE RECORDS SUMMARY | 2024-05-31 07:22 | XMS_ITS | Encounter Summary ---
Author Organization [facility] [place] [address] Care Team Providers Care High School French Teacher Name Role Phone Carrington Calderon MD Primary Care Provider +1 -[phone] Encounter Details Date Type Department Care Team (Late st Contact Info) Description 02/03/2024 Orders Only [place] [address] Jackie Javier MD [facility] [place] [address] Social History Tobacco Use Types Packs/Day Years [...] in this encounter Care Teams High School French Teacher Relationship Specialty Start Date End Date Carrington Calderon MD 1 [facility] Level 1 [place] [address] PCP - General Internal Medicine 01/16/24 documented as of this encounter
--- OUTSIDE RECORDS SUMMARY | 2024-05-31 07:22 | XMS_ITS | Encounter Summary ---
Author Organization [facility] [place] [address] Care Team Providers Care Soldering Technician Name Role Phone Carrington Calderon MD Primary Care Provider +1 -[phone] Encounter Details Date Type Department Care Team (Late st Contact Info) Description 02/07/2024 Notes Only Infectious Disease at [facility] [place] [address] Olive Anna, RN Social History Tobacco Use [...] PM EDT Infectious Disease Department Faxed to [facility] infusion suite on 02/07/24 at 1300 Fax confirmation on 02/07/24 at 1310 Document(s) faxed: Dalbavancin orders Spoke to nurse Crow at [facility] and pt is scheduled for 02/10/24 @1200 Infectious Disease Department Faxed to [facility] Radiology on 02/07/24 at 1300 Fax confirmation on 02/07/24 at 1315 Document(s) faxed: MRI screening questionnaire form that pt's Arnold answered all questions during phone call with this headline writer. documented in this encounter Plan of Treatment Not on file documented as of this encounter Visit Diagnoses Not on filedocumented in this encounter Care Teams Soldering Technician Relationship Specialty Start Date End Date Carrington Calderon MD 1 [facility] Level 1 [place] [address] PCP - General Internal Medicine 01/16/24 documented as of this encounter
--- OUTSIDE RECORDS SUMMARY | 2024-05-31 07:22 | XMS_ITS | Encounter Summary ---
Author Organization [facility] [place] [address] Care Team Providers Care Guide Foreign Tour Name Role Phone Carrington Calderon MD Primary Care Provider [phone] [phone] Encounter Details Date Type Department Care Team (Late st Contact Info) Description 02/03/2024 Notes Only Infectious Disease at [facility] [place] [address] Olive Anna, RN Social History Tobacco Use [...] PM EDT Infectious Disease Department Faxed to [facility] on 02/03/24 at 1615 Fax confirmation on 02/03/24 at 1620 Document(s) faxed: Standing labs MRI order documented in this encounter Plan of Treatment Not on file documented as of this encounter Visit Diagnoses Not on filedocumented in this encounter Care Teams Guide Foreign Tour Relationship Specialty Start Date End Date Carrington Calderon MD 1 [facility] 1 [place] [address] PCP - General Internal Medicine 01/16/24 documented as of this encounter
--- OUTSIDE RECORDS SUMMARY | 2024-05-31 07:23 | XMS_ITS | Encounter Summary ---
Author Organization [facility] Address [address] [place] [address] Care Team Providers Care Coagulating Bath Operator Name Role Phone Carrington Calderon MD Primary Care Provi anders Carmelo Hendrickson Unavailable Unavailable Abigail Díaz Unavailable Encounter Details Date Type Department Care Team (Late st Contact Info) Description 04/03/2024 Patient Outreach [facility] Adult Primary Care - [place] 1 [place], [place] [id number] Carmelo Hendrickson Social History Tobacco Use Types Packs/Day Years Used Date Smoking Tobacco: Every Day Cigarettes 0.5 13.6 Started: 11/10/2010 Smokeless Tobacco: Never Comments:06/13/20 actively try ing to quit about 5-8 cigs/day Alcohol Use Standard Drinks/Week Comments Yes 0 (1 standard drink = 0.6 oz pur e alcohol) rarely C Utilities Answer Date Recorded In the past 12 months has [employer], gas, oil, or water [employer] threatened to shut off services in your [...] time in the past 12 m [facility], were you homeless or living in [...] your living situation today? I have a [facility] place to live 04/03/2024 Think about [...] the past 12 months has th e [employer], gas, oil, or water [employer] threatened to shut off services in your [...] * Carmelo Hendrickson - 04/03/2024 1134 EDT [facility] Initial Note Referred by: Nohemy Krueger RNCM [...] on filedocumented in this encounter Care Teams Coagulating Bath Operator Relationship Specialty Start Date End Date Carrington Calderon MD 1 [facility] 1 [place] [phone] PCP - General Internal Medicine - Primary Care 12/09/20 Carmelo Hendrickson Coordinator 12/01/23 Abigail Díaz Rotary Cutter Feeder 01/04/24 documented as of this encounter
--- OUTSIDE RECORDS SUMMARY | 2024-05-31 07:23 | XMS_ITS | Encounter Summary ---
Author Organization [facility] Address [address] [place] [address] Care Team Providers Care Stockroom Associate Name Role Phone Carrington Calderon MD Primary Care Provi anders Carmelo Hendrickson Unavailable Unavailable Abigail Díaz Unavailable [phone] Encounter Details Date Type Department Care Team (Late st Contact Info) Description 04/03/2024 Patient Outreach [facility] Adult Primary Care - [place] 1 [place], [place] [id number] Sivan Krueger RN Social History Tobacco Use Types Packs/Day Years Used Date Smoking Tobacco: Every Day Cigarettes 0.5 13.6 Started: 11/10/2010 Smokeless Tobacco: Never Comments:06/13/20 actively try ing to quit about 5-8 cigs/day Alcohol Use Standard Drinks/Week Comments Yes 0 (1 standard drink = 0.6 oz pur e alcohol) rarely [facility] Utilities Answer Date Recorded In the past 12 months has [employer], gas, oil, or water [employer] threatened to shut off services in your [...] slept in a retirement (including now)? No 06/14/2023 Housing Stability Vital [...] the past 12 m [facility], were you homeless or living in a retirement (including now)? No 11/15/2023 Interpersonal Safety Answer [...] your living situation today? I have a [facility] place to live 04/03/2024 Think [...] the past 12 months has th e [employer], gas, oil, or water [employer] threatened to shut off services in your [...] Sivan Krueger RN - 04/03/2024 1029 EDT [facility] Integrated Care Management Assessment and [...] Carmelo Hendrickson as Coordinator Abigail Díaz as Employee Relations Administrator Medications: Current Outpatient Medications: acetaminophen (TYLENOL) 325 [...] Disp: 36 mL, Rfl: 4 lancets, Brand: Ummitechyle, check glucose 4 times per day for [...] (Non-Medical): No Utilities: Not At Risk (11/15/2023) [facility] Utilities Threatened with loss of utilities: No [...] no insurance at this time. Refer to family resource management specialist. DME: none DME vendor: not applicable Barriers to using technology: none identified Preferred method of communication: Text, Phone Call, and Syntasia Message Cultural, spiritual or language factors affecting health: none identified Existing Community Resources: none Gaps in Resources Identified: none identified Advance Directive on File: Yes Prioritized Patient Identified Goals: (needs to include one self-management goal) 1. Patient will work with family resource management specialist to enroll in health insurance within 1 [...] this. She is interested in speaking with family resource management specialist and CDE. Patient's access to their plan of care: Patient/family will access electronically through MyChart CM will follow-up in one month SIVAN KRUEGER RN 04/03/2024 10:29 documented in this encounter Plan of Treatment Not on file documented as of this encounter Visit Diagnoses Not on filedocumented in this encounter Care Teams Stockroom Associate Relationship Specialty Start Date End Date Carrington Calderon MD 1 [facility] 1 [place] [phone] PCP - General Internal Medicine - Primary Care 12/09/20 Carmelo Hendrickson Coordinator 12/01/23 Abigail Díaz Employee Relations Administrator 01/04/24 documented as of this encounter
--- OUTSIDE RECORDS SUMMARY | 2024-05-31 07:23 | XMS_ITS | Encounter Summary ---
Author Organization [facility] Address [facility] [place] [address] Care Team Providers Care Director Of Player Personnel Name Role Phone Carrington Calderon MD Primary Care Provider [phone] Reason for Referral * Diagnostic Test (Routine) - Pending Review Specialty Diagnoses / Procedures Referred By Kit goode Referred To Contact Radiology Diagnoses Diabetic foot ulcer with osteomyelitis Procedures MRI Foot wwo Contrast Left Jackie Javier MD [facility] [address] Referral ID Status Reason Start Date Expiration Date Visits Requested Visits Authorized [id number] Pending Review Specialty Service Requested 02/03/2024 08/03/2025 1 1 Reason for Visit * Consultation (Urgent) - Closed Specialty Diagnoses / Procedures Referred By Kit goode Referred To Contact Infectious Diseases Diagnoses Osteomyelitis, unspecified Non-pressure chronic ulcer of other part of left foot with fat layer exposed Madelin Ojeda, [facility] [address] [place] [address] [facility] Infectious Dis [address] [place] [phone] Referral ID Status Reason Start Date Expiration Date V isits Requested Visits Authorized [id number] Closed Consult, Test & Treat PCP Updated and/or Approved 01/11/2024 01/10/2025 12 12 Encounter Details Date Type Department Care Team (Latest Contact Info) Description 02/03/2024 10:30 AM EDT Office [place] [address] Jackie Javier MD [facility] [address] Diabetic foot ulcer with osteomyelitis (Primary Dx) [...] L foot since 2019. [facility] her first amputation, after which she says she was treated with of IV antibiotics via PICC line. In 2020, she transitioned her care to a podiatry practice closer to [facility], where she currently follows with Dr. [...] locally, with the final set at our [id number] appointment. Lastly, I emphasized the importance of other measures, including excellent glycemic control. I alsowonder if she would benefit from an arterial Duplex U/S to assess blood flow to that foot and the need for vascular intervention. I spent a total of 70 minutes on the date of service on the [id number] encounter, chart review, clinical decision making, documentation, [...] 12.3(H) <=4.9 mg/L 02/03/2024 1:43 PM EDT [facility] Blood VENOUS BLOOD SPECIMEN / Unknown Venipuncture / Unknown 02/03/2024 12:38 PM EDT 02/03/2024 1:00 PM EDT Jackie Javier MD CHEMISTRY ORDERABLES [facility] [place] [address] * (ABNORMAL) Comprehensive metabolic panel (02/03/2024 12:38 PM EDT) Glucose 306(H) 65 - 199 mg/dL 02/03/2024 1:43 PM EDT [facility] Comment:Glucose Concentratio n >=200 mg/dL plus symptoms is consistent with Diabetes Mellitus. Blood Urea Nitrogen 9 8 - 18 mg/dL 02/03/2024 1:43 PM EDT [facility] Creatinine 0.56(L) 0.70 - 1.20 mg/dL 02/03/2024 1:43 PM EDT [facility] Sodium 133(L) 135 - 145 mMol/L 02/03/2024 1:43 PM EDT [facility] Potassium 4.4 3.5 - 5.0 mMol/L 02/03/2024 1:43 PM EDT [facility] Chloride 96(L) 98 - [...] 120 mL/min/1. 73 m?? 02/03/2024 1:43 PM [facility] Comment: This patient's estimated [...] Foundation Fasting Status No 02/03/2024 1:43 PM [facility] Blood VENOUS BLOOD SPECIMEN / Unknown Venipuncture / Unknown 02/03/2024 12:38 PM EDT 02/03/2024 1:00 PM EDT Jackie Javier MD CHEMISTRY ORDERABLES [facility] [place] [address] * (ABNORMAL) CBC (with Diff) (02/03/2024 12:38 PM EDT) White Blood Cell 18.69(H) 4.00 - 9.50 x10(3)/mc L 02/03/2024 1:21 PM EDT [facility] Red Blood Cell 4.62 4.00 - 5.21 x10(6)/mc L 02/03/2024 1:21 PM EDT [facility] Hemoglobin 14.3 11.7 - 15.5 g/dL 02/03/2024 1:21 PM EDT [facility] Hematocrit 43.0 35.7 - 45.8 % 02/03/2024 1:21 PM EDT [facility] Mean Cell Volume 93.1 82.6 - 94.4 fL 02/03/2024 1:21 PM EDT [facility] Mean Cell Hemoglobin 31.0 27.1 - 32.0 pg 02/03/2024 1:21 PM EDT [facility] Mean Cell Hemoglobin Concentration 33.3 31.7 - 35.0 g/dL 02/03/2024 1:21 PM EDT [facility] Platelet 405(H) 145 - 357 x10(3)/mc L 02/03/2024 1:21 PM EDT [facility] Mean Platelet Volume 9.6 7.6 - 12.9 fL 02/03/2024 1:21 PM EDT [facility] RDW Standard Deviation 43.9 37.0 - 46.0 fL 02/03/2024 1:21 PM EDT [facility] RDW coefficient of variation 12.9 11.5 - 14.1 % 02/03/2024 1:21 PM [facility] NRBC% auto 0.0 % 02/03/2024 1:21 PM [facility] NRBC Absolute 0.00 0.00 - 0.00 x10(3)/mc L 02/03/2024 1:21 PM [facility] Neutrophil % 63.6 % 02/03/2024 1:21 PM [facility] Neutrophil Absolute (ANC) - Automated 11.90(H) 1.70 - 6.10 x10(3)/mc L 02/03/2024 1:21 PM [facility] Lymph % 26.2 % 02/03/2024 1:21 PM [facility] Lymph Absolute 4.90(H) 0.90 - 3.20 x10(3)/mc L 02/03/2024 1:21 PM [facility] Monocyte % 7.3 % 02/03/2024 1:21 PM [facility] Monocyte Absolute 1.36(H) 0.30 - 0.90 x10(3)/mc L 02/03/2024 1:21 PM [facility] Eos % 2.0 % 02/03/2024 1:21 PM [facility] Eos Absolute 0.37 0.00 - 0.40 x10(3)/mc L 02/03/2024 1:21 PM [facility] Basophil % 0.5 % 02/03/2024 1:21 PM [facility] Baso Absolute 0.09 0.00 - 0.10 x10(3)/mc L 02/03/2024 1:21 PM [facility] Immature Gran % 0.4 % 1:21 PM [facility] Immature Gran Absolute 0.07(H) 0.00 - 0.04 x10(3)/mc L 02/03/2024 1:21 PM [facility] Blood VENOUS BLOOD SPECIMEN / Unknown Venipuncture / Unknown 02/03/2024 12:38 PM EDT 02/03/2024 1:00 PM EDT Jackie Javier MD HEMATOLOGY ORDERABLE S [facility] [place] [address] documented in this encounter Visit Diagnoses Diagnosis Diabetic foot ulcer with osteomyelitis- Primary Type II or unspecified type diabetes mellitus with other specified manifestations, not stated as uncontrolled documented in this encounter Care Teams Director Of Player Personnel Relationship Specialty Start Date End Date Carrington Calderon MD 1 [facility] [address] [place] [address] PCP - General Internal Medicine 01/16/24 documented as of this encounter
--- OUTSIDE RECORDS SUMMARY | 2024-05-31 07:23 | XMS_ITS | Encounter Summary ---
Author Organization [facility] Address [address] [place] [address] Care Team Providers Care Care Asst Name Role Phone Carrington Calderon MD Primary Care Provi anders Carmelo Hendrickson Unavailable Unavailable Abigail Díaz Unavailable Encounter Details Date Type Department Care Team (Late st Contact Info) Description 04/12/2024 Patient Outreach [facility] Adult Primary Care - [place] [address] [place], [place] [id number] Carmelo Hednrickson Social History Tobacco Use Types Packs/Day Years Used Date Smoking Tobacco: Every Day Cigarettes 0.5 13.6 Started: 11/10/2010 Smokeless Tobacco: Never Comments:06/13/20 actively try ing to quit about 5-8 cigs/day Alcohol Use Standard Drinks/Week Comments Yes 0 (1 standard drink = 0.6 oz pur e alcohol) rarely C Utilities Answer Date Recorded In the past 12 months has [employer], gas, oil, or water [employer] threatened to shut off services in your [...] your living situation today? I have a [facility] place to live 04/03/2024 Think [...] the past 12 months has th e [employer], gas, oil, or water [employer] threatened to shut off services in your [...] * Carmelo Hendrickson - 04/12/2024 1223 EST [facility] Quality Process Lead Follow-up Note Encounter type: Telephone Notes: RC called and LVM again for Stella. Plan / Action Items: RC will send outreach letter and check back. RC will follow up in 1 month. Carmelo Hendrickson 04/12/24 12:23 documented in this encounter Plan of Treatment Not on file documented as of this encounter Visit Diagnoses Not on filedocumented in this encounter Care Teams Care Asst Relationship Specialty Start Date End Date Carrington Calderon MD 1 [facility] [address] [place] [address] PCP - General Internal Medicine - Primary Care 12/09/20 Carmelo Hendrickson Coordinator 12/01/23 Abigail Díaz Tap And Die Maker Technician 01/04/24 documented as of this encounter
--- OUTSIDE RECORDS SUMMARY | 2024-05-31 07:23 | XMS_ITS | Encounter Summary ---
[facility] [place] [address] Care Team Providers Care Mdm Sr Name Role Phone Carrington Calderon MD Primary Care Provider [phone] Encounter Details Date Type Department Care Team [...] on filedocumented in this encounter Care Teams Mdm Sr Relationship Specialty Start Date End Date Carrington Calderon MD 1 [facility] [address] [place] [address] PCP - General Internal Medicine 01/16/24 documented as of this encounter
--- OUTSIDE RECORDS SUMMARY | 2024-05-31 07:23 | XMS_ITS | Encounter Summary ---
Author Organization [facility] Address [address] [place] [address] Care Team Providers Care Respiratory Manager Name Role Phone Carrington Calderon MD Primary Care Provi anders Carmelo Hendrickson Unavailable Unavailable Abigail Díaz Unavailable [phone] Reason for Visit * Reason Comments Medications Refill Encounter Details Date Type Department Care Team (Late st Contact Info) Description 01/18/2024 Refill [facility] Adult Primary Care - [address] [address] Carrington Calderon MD [address] [phone] Medications Refill Social History Tobacco Use Types Packs/Day Years Used Date Smoking Tobacco: Every Day Cigarettes 0.5 13.6 Started: 11/10/2010 Smokeless Tobacco: Never Comments:06/13/20 actively try ing to quit about 5-8 cigs/day Alcohol Use Standard Drinks/Week Comments Yes 0 (1 standard drink = 0.6 oz pur e alcohol) rarely [facility] Utilities Answer Date Recorded In the past 12 months has [employer], gas, oil, or water company [...] any time in the past 12 m [facility], were you homeless or living [...] documented as of this encounter Care Teams Respiratory Manager Relationship Specialty Start Date End Date Carrington Calderon MD 1 [facility] [address] [place] [address] PCP - General Internal Medicine - Primary Care 12/09/20 Carmeol Hendrickson Coordinator 12/01/23 Abigail Díaz Ornament Setter 01/04/24 documented as of this encounter
--- OUTSIDE RECORDS SUMMARY | 2024-05-31 07:23 | XMS_ITS | Encounter Summary ---
Author Organization [facility] [place] [address] Care Team Providers Care Search Engine Optimization Analyst Name Role Phone Carrington Calderon MD Primary Care Provider [phone] Encounter Details Date Type Department Care Team (Late st Contact Info) Description 01/19/2024 Telephone [place] [phone] Unknown None Social History Tobacco Use Types [...] (if other than self): Patient Callback number: [phone] Best time you are available: Any Route Per Clinic Coverage Page documented in this encounter Plan of Treatment Not on file documented as of this encounter Visit Diagnoses Not on filedocumented in this encounter Care Teams Search Engine Optimization Analyst Relationship Specialty Start Date End Date Carrington Calderon MD 1 [facility] 1 [place] [address] PCP - General Internal Medicine 01/16/24 documented as of this encounter
--- OUTSIDE RECORDS SUMMARY | 2024-05-31 07:23 | XMS_ITS | Encounter Summary ---
Author Organization [facility] Address [address] [place] [address] Care Team Providers Care Brusher Name Role Phone Carrington Calderon MD Primary Care Provi anders Carmelo Hendrickson Unavailable Unavailable Abigail Díaz Unavailable [phone] Reason for Visit * Reason Onset Date Comments Diabetes 04/05/2024 Diabetes pathway patient Encounter Details Date Type Department Care Team (Late st Contact Info) Description 04/05/2024 Telephone [facility] [address] [place] [address] Macey Farr, RD [address] [address] Diabetes (Diabetes pathway patient) Social History Tobacco Use Types Packs/Day Years Used Date Smoking Tobacco: Every Day Cigarettes 0.5 13.6 Started: 11/10/2010 Smokeless Tobacco: Never Comments:06/13/20 actively try ing to quit about 5-8 cigs/day Alcohol Use Standard Drinks/Week Comments Yes 0 (1 standard drink = 0.6 oz pur e alcohol) rarely [facility] Utilities Answer Date Recorded In the [...] your living situation today? I have a [facility] place to live 04/03/2024 Think about the [...] the past 12 months has th e [employer], gas, oil, or water company threatened to [...] - 04/05/2024 1105 EDT ----- Message from Service Unit Operator Nohemy sent at 04/03/2024 10:42 EDT ----- HI ! This patient has no health insurance. Carmelo could you call her? Macey, She is interested in talking with CDE and can do telehealth. She lives in [place]. I've enrolled herin the DM pathway, Thank you both! Azul documented in this encounter Plan of Treatment Not on file documented as of this encounter Visit Diagnoses Not on filedocumented in this encounter Care Teams Brusher Relationship Specialty Start Date End Date Carrington Calderon MD 1 [facility] 1 [place] [phone] PCP - General Internal Medicine - Primary Care 12/09/20 Carmelo Hendrickson Coordinator 12/01/23 Abigail Díaz Service Unit Operator 01/04/24 documented as of this encounter
--- OUTSIDE RECORDS SUMMARY | 2024-05-31 07:23 | XMS_ITS | Encounter Summary ---
Author Organization [facility] Address [address] [place] [address] Care Team Providers Care Wool Washer Feeder Name Role Phone Carrington Calderon MD Primary Care Provi anders Carmelo Hendrickson Unavailable Unavailable Abigail Díaz Unavailable Reason for Visit * Reason Comments Follow-up Encounter Details Date Type Department Care Team (Late st Contact Info) Description 02/21/2024 9:45 EDT Office Visit [facility] Adult Primary Care - [address] [phone] Carrington Calderon MD 1 [facility] [address] [place] [phone] Type 2 diabetes mellitus with diabetic polyneuropathy, with long-term current use of insulin (HCC-CMS) ([facility]) (Primary Dx); Migraine with aura [...] alcohol) rarely [facility] Utilities Answer Date Recorded In the past [...] any time in the past 12 m [facility], were you homeless or living in [...] use of insulin ([facility]) ([facility]) I am concerned about the fact that Stella is not able to take her medications because of her financialsituation. Will connect her with our clinical social worker who she has met with in the [...] 2 diabetes mellitus ([facility]) Today we discussed the option of replacing [...] stopped taking Jardiance after conversation with her nurse licensed practical, noting risk of lower extremityamputation. Her insurance [...] of insulin (HCC-CMS) ([facility])- Primary Migraine with aura and without status migrainosus, not intractable Migraine with aura, without mention of intractable migraine without mention of status migrainosus Diabetic polyneuropathy associated with type 2 diabetes mellitus ([facility]) Primary insomnia Persistent disorder of [...] use of insulin ([facility]) Take 1 Tablet by mouth daily. 06/27/2023 02/21/2024 documented as of this encounter Care Teams Wool Washer Feeder Relationship Specialty Start Date End Date Carrington Calderon MD 1 [facility] 1 [place] [phone] PCP - General Internal Medicine - Primary Care 12/09/20 Carmelo Hendrickson Coordinator 12/01/23 Abigail Díaz Utility Locator 01/04/24 documented as of this encounter
--- OUTSIDE RECORDS SUMMARY | 2024-05-31 07:23 | XMS_ITS | Clinical Summary ---
Author Organization [facility] Address [address] [place] [address] Care Team Providers Care Steam Shovel Operator Name Role Phone Carrington Calderon MD Primary Care Provi anders Carmelo Hendrickson Unavailable Unavailable Abigail Díaz Unavailable [phone] Allergies Active Allergy Reactions Criticality Noted [...] with long-term current use of insulin ([facility]) Inject 1 Each into the skin every 10 days. 9 Each Active ondansetron (ZOFRAN-ODT) 4 mg disintegrating tabletIndications :Cyclic vomiting syndrome Take 1 Tablet by mouth every 8 hours as needed for Nausea. 30 Tablet Active insulin glargine (LANTUS SOLOSTAR/SEMGLEE) 100 unit/mL (3 mL) injection penIndications:Ty pe 2 diabetes mellitus with diabetic polyneuropathy, with long-term current use of insulin ([facility]) Inject 44 Units into the skin at bedtime. 36 mL Active SITagliptin phosphate (JANUVIA) 100 mg tabletIndications :Type 2 diabetes mellitus with diabetic polyneuropathy, with long-term current use of insulin ([facility]) Take 1 Tablet by mouth daily. 90 Tablet Active Additional Information Patient not taking.Reported on 02/21/2024 metoclopramide HCl (REGLAN) 10 mg tablet Take 1 Tablet by mouth 3 times daily before meals. Starting 3 days before menses and stopping after end of period 270 Tablet Active gabapentin (NEURONTIN) 300 mg capsuleIndication s:Diabetic polyneuropathy associated with type 2 diabetes mellitus ([facility]) Take 1 Capsule by mouth every morning AND 4 Capsules at bedtime. 450 Capsule Active SUMAtriptan (IMITREX) 20 mg/actuation nasal spray USE 1 SPRAY(S) INTO RIGHT NOSTRIL NEEDED FOR MIGRAINE HEADACHE 6 Each Active Blood-Glucose Transmitter (DEXCOM G6 TRANSMITTER) deviceIndications :Type 2 diabetes mellitus with diabetic polyneuropathy, with long-term current use of insulin ([facility]) Inject 1 Each into the skin every 3 months. 1 Each 4 024 Active HUMALOG KWIKPEN INSULIN 100 unit/mL injectable penIndications:Ty pe 2 diabetes mellitus with diabetic polyneuropathy, with long-term current use of insulin ([facility]) 8 units with breakfast, 15 units [...] with long-term current use of insulin ([facility]) Brand: Freestyle Lite 1 Each 024 Active blood glucose test stripsIndications :Type 2 diabetes mellitus with diabetic polyneuropathy, with long-term current use of insulin ([facility]) Brand: Freestyle Lite, check glucose 4 times per day for insulin dose titration 100 Each 024 Active lancetsIndication s:Type 2 diabetes mellitus with diabetic polyneuropathy, with long-term current use of insulin ([facility]) Brand: Freestyle, check glucose 4 times per day for insulin dose titration 100 Each 11 024 Active DULoxetine 40 mg capsule,delayed release(DR/EC)Ind ications:Anxiety and depression Take 1 capsule by mouth once daily 90 Capsule 3 024 Active nortriptyline (PAMELOR) 10 mg capsuleIndication s:Diabetic polyneuropathy associated with type 2 diabetes mellitus ([facility]),Primary insomnia Take 1 capsule by mouth at bedtime 30 Capsule Active nortriptyline (PAMELOR) 10 mg capsuleIndication s:Diabetic polyneuropathy associated with type 2 diabetes mellitus ([facility]),Primary insomnia Take 1 Capsule by mouth at [...] 06/19 Patient has given permission for [facility] to verbally discuss the following information with Ferimn Luo who has the following relationship to [...] Confirmed patient has Traditional Medicaid now. TCN: [id number] Category: P2 Garfield Healy 06/10/2020 19:11 Problem Noted Date Diagnosed Date Tobacco use 12/21/2021 Skin infection 12/21/2021 Pannus, abdominal 12/21/2021 Overview (04/01/2022): - as of 01/2022, does not meet criteria for surgical intervention (see 01/29/22 note) Neuropathic diabetic ulcer of foot ([facility]) Cyclic vomiting syndrome 08/10/2020 Overview (06/11/2021): - [...] long-term current use of insulin ([facility]) 06/05/2020 Overview (11/17/2022): - Dx approx age [...] approx 2012 - had SI, treated at [facility]. Marijuana prn to help with stress/anxiety sx -Describes paradoxical effect of citalopram, reportedly resulting in the above admission at [facility] Migraine with aura and witho ut status [...] (06/27/2020): Added automatically from request for surgery [id number] of unknown anatomic location 06/20/2020 06/27/2020 Overview (06/27/2020): Clinical Group: M Patient HPI: Cristy Luo is an 35 y.o. , patient with history of ectopic and positive HCG during post operative period for unrelated procedure. Reported cramping to [facility] nurse on 06/19. LMP: End of the first week of May Rh status: B- Rhogam: Given by [facility] 06/20/20 Desired : Unknown Ectopic risk factors: hx of ectopic pregnancies and five D&C's . 10/2018: Interstitial treated w/ MTX. HCGs Lab Results Component Value Date HCGPREG 49 (H) 06/25/2020 HCGPREG 111 (H) 06/23/2020 HCGPREG 152 (H) 06/21/2020 HCGPREG 108 (H) 06/19/2020 HCGPREG 2,954 (H) 10/11/2019 HCGPREG 707 (H) 09/02/2019 HCGPREG 316 (H) 08/31/2019 Plan: 06/20/2020: US today and given RhoGham by [facility]. Place in BB per MD Esteban [...] repeat HCG 06/25 & U/S 06/25 in [facility] clinic. MARCELO Dale 06/25/20: U/S results - [...] (06/05/2020): Added automatically from request for surgery [id number] Type 2 diabetes mellitus wit h left diabetic foot ulcer ([facility]) 05/03/2020 03/27/2021 Osteomyelitis of great toe o f left foot ([facility]) 03/12/2020 06/11/2021 Diabetic foot ulcer associat ed with diabetes mellitus due to underlying condition ([facility]) 03/07/2020 03/27/2021 Diabetic foot infection ([facility]) 03/06/2020 06/11/2021 Diabetic foot ulcer ([facility]) 03/06/2020 06/11/2021 Cellulitis of great toe of left foot 11/26/2019 06/11/2021 Encounter for sterilization 11/20/2019 06/20/2020 Overview (11/20/2019): Added automatically from request for surgery [id number] Missed 10/12/2019 10/15/2019 Overview (10/15/2019): Clinical Group: [...] PCR results found No results found for: [id number] HgA1c [ ] 1T pending [ ] [...] & Plan (10/01/2019 16:50 EDT): - Reviewed [facility] group practice and clinic flow. - [...] Quant Beta HCG = 1652.8 mIU/ml @ [facility] 11/10/2018: Quant Beta HCG, Preg 1,117 mIU/ml* (Ref range: <5 mIU/ml) 11/21/18: Quant Beta HCG 299.98 mIU/mL at [facility] (ref range <2.39) 12/03/18: Quant Beta HCG, 41.94 mIU/ml at [facility] 12/13/18: Quant Beta HCG, 13.63 mIU/ml at [facility] Plan: 10/24/18: per Dr. Coronado repeat [...] go to lab 11/08. States will go 11/09/18.[facility] 11/10/18: Plan per Dr. Almeida, repeat HCG in 1 week (11/17). Results & plan reviewed with Cristy. MARCELO Dale 11/21/18 Pt plans on going to [facility] today. [facility] 11/21/18. [facility].98. Repeat in 1 week. Pt would like to go 11/27/18([facility]) as off from work [facility] 12/01/18: LVM for pt to repeat lab [...] Cristy with plan. MARCELO Dale 12/25/18: Per [facility] lab last HCG was 12/13, NOS for 12/20, LVM X3, letter sent, will remove from [employer] Book.MARCELO Dale Spontaneous miscarriage 09/04/201510/05 Overview (09/04/2015): 02/18, 08/19. Followed by Dr. 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) - intolerant of MFM (diarrhea) Encounters Date Type Department Care Team Description 05/13/[address] [address] Carrington Calderon MD Medications Refill 04/19/2024 Patient Outreach [address] [address] Nohemy Krueger RN 04/12/2024 Patient Outreach [address] [address] Carmelo Hendrickson 04/06/[address] [address] Carrington Calderon MD 04/06/[address] [address] Carrington Calderon MD 04/06/[address] [address] Carrington Calderon MD 04/06/[address] [address] Carrington Calderon MD 04/05/[phone] Farr RD CD Diabetes (Diabetes pathway patient) 04/03/2024 Patient Outreach [address] [phone] KeerthiCarmelo barragan 04/03/2024 Patient Outreach [facility] [address] [place], [place] [address] Nohemy Krueger RN 03/22/2024 Patient Outreach [facility] [address] [place], [place] [address] Nohemy Krueger RN 03/16/2024 Telephone [facility] [address] [place], [place] [id number] Carrington Calderon MD Coordination Of Care from [...] in OBGYN History of general anesthesia Osteomyelitis ([facility]) of left great toe-s/p amputation Nausea & vomiting occasionally Diabetes ([facility]) A1c 10.3 on - poorly controlled Hx of ectopic 06/20/2020 Hx of migraines Does not exercise 06/13/2020 due to infecte d toe- typically on a normal basis- walk 3 dogs and hiking- climbing stairs is not an issue. Chest pain r/t anxiety Productive cough pt currently qu itting smoking- clear secretions. Diabetes mellitus, type 2 ([facility]) pt check blood sugars at home- [...] Gastroparesis Neuropathic diabetic ulcer o f foot ([facility]) 09/17/2021 Family History Medical History Relation Comments [...] = 0.6 oz pur e alcohol) rarely [employer] Utilities Answer Date Recorded In the past [...] your living situation today? I [facility] to live 04/03/2024 Think about the [...] ex ; twin confirmed by US at [facility]; no medical or surgical tx 01/2015 SAB 9w0 d SAB Comments:D&C at [facility]; f irst current 08/2015 SAB 10w 0d SAB Comments:D&C at [facility]; 2 nd with current 02/2017 SAB 6w0 d SAB Comments:D&C at [facility]; t hird with current 06/2017 SAB 6w0 d SAB Comments:D&C at [facility]; nonviable seen on US; fourth with current 01/2018 SAB 6w0 d SAB Comments:D&C at [facility] after nonviable on US; had to have repeat D&C in April for retained POCs 10/2018 Ectopic 10w 4d ECTOPIC Comments:interstitial diagnosed at [facility]; given MTX 10/26/1810/2019 SAB Comments:D+C [...] mellitus with other specified complication, unspecified whether assisted insulin use ([facility]) URINE ZIFGUGQ-IU-OJUCBISGUM RATIO (ACR) Routine 11/28/2019 15:56 EDT Type 2 diabetes mellitus with other specified complication, unspecified whether intermediate teacher insulin use ([facility]) from Last 3 Months or Most [...] Edited Result - Final Performing Organization Address City/[facility]/ZIP Co de Phone Number [facility] POINT OF CARE * C REACTIVE PROTEIN (03/12/2024) Pathologist [facility] C-Reactive Protein, External 0.57 [facility] POINT OF CARE Blood VENOUS BLOOD / Unknown 03/12/2024 Carrington Calderon MD CHEMISTRY & BLOOD G ORDERABLES Final Result [facility] POINT OF CARE * HEMOGLOBIN A1C (03/12/2024) Pathologist [facility] Hemoglobin A1C, External 11.9 % [facility] Est Avg Glucose, External 5.7-6.4 mg/dL [facility] POINT OF CARE Blood VENOUS BLOOD / Unknown 03/12/2024 Carrington Calderon MD CHEMISTRY & BLOOD G ORDERABLES Final Result [facility] POINT OF CARE * HEPATITIS C AB W REFLEX TO HCV RNA BY PCR (11/11/2023 13:53 EDT) Pathologist [facility] Hep C Antibody Negative Negative 11/11/2023 17:03 EDT [facility] Blood VENOUS BLOOD / Unknown Venipuncture / Unknown 11/11/2023 13:53 EDT 11/11/2023 13:55 EDT Carrington Calderon MD CHEMISTRY & BLOOD G ORDERABLES Final Result Performing Organization Address [facility]/ZIP Co de Phone Number [facility] [address] [place] [address] * HIV 1/2 ANTIGEN AND ANTIBODY, 4TH GENERATION (11/11/2023 13:53 EDT) HIV 1 and 2 Antibody/p24 Antigen, 4th Generation Negative Negative 11/11/2023 17:04 EDT [facility] Comment:If acute HIV-1 infec tion is suspected in a high risk patient, submit plasma specimen for HIV-1 RNA quantitation test. Blood VENOUS BLOOD / Unknown Venipuncture / Unknown 11/11/2023 13:53 EDT 11/11/2023 13:55 EDT Narrative [facility] - 11/11/2023 17:04 EDT Fourth Generation assay performed on the Siemens [employer] XPT. Carrington Calderon MD IMMUNOLOGY AND SERO LOGY ORDERABLES Final Result Performing Organization Address [facility] Co de Phone Number [facility] [address] [place] [phone] * PAP TEST (06/27/2023 16:00 EST) Specimens A. Cervix and/or Endocervix , ThinPrep Imaging System with Manual Evaluation 07/13/2023 16:25 EST [facility] Specimen Adequacy Satisfactory for Evaluation - transformation zone component absent 07/13/2023 16:25 EST [facility] General Categorization Negative for intraepithelial lesion or malignancy 07/13/2023 16:25 EST [facility] Attestation . 07/13/2023 16:25 [facility] at 1625 Clinical History screening 07/13/19 24 16:25 EST [facility] HPV The result for the Human Papillomavirus (HPV) Detection-High Risk Types is Negative. No E6 or E7 mRNA is detected from HPV types 16,18,31,33,35,39 ,45,51,52,56,58,5 9,66, and 68 by human resources support specialist mediated amplification.Lorena ting was performed on specimen [id number] and was resulted on 07/13/2023 1625 EST by JANET, LAB INSTRUMENT RESULTS IN 07/13/2023 16:25 EST [facility] Performing Lab [facility] 07/13/2023 16:25 EST [facility] Scanned Images 07/13/2023 16:25 EST [facility] Pap Test CERVIX UTERI STRUCTURE / Unknown 06/27/2023 16:00 EST 06/27/2023 16:00 EST us Carrington Calderon MD PATHOLOGY ORDERABLE S Final Result Performing Organization Address City/[facility]/ZIP Co de Phone Number [facility] [address] [place] [phone] * (ABNORMAL) ALBUMIN, URINE (11/28/2019 15:56 EDT) Albumin, Urine 11.3 See Note mg/dL 2019 16:47 EDT [facility] Comment: NOTE: Reference range not established Creatinine, Urine 143.1 See Note mg/dL 11/28/2019 16:47 EDT [facility] Comment: NOTE: Reference range not established Lab Urine Albumin to Creatinine Ratio 79(H) <30 ug/mg Creatinine 11/28/2019 16:47 T [facility] Comment: Urine Albumin/Creatinine Ratio: Normal: <30 ug/mg Creatinine Moderately increased albuminuria: 30-300 ug/mg Creatinine Severley increased albuminuria: >300 ug/mg Creatinine Urine URINE SPECIMEN OBTAINED BY CLEAN CATCH PROCEDURE / Unknown Urine Collect / Unknown 11/28/2019 15:56 EDT 11/28/2019 15:56 EDT us Tonja Alejandro PA-C CHEMISTRY & BLOOD GA S ORDERABLES Final Result [facility] [address] [place] [phone] * LIPID PROFILE (INCLUDES CHOLESTEROL, TRIGLYCERIDES, HDL, LDL) (11/28/2019 15:56 EDT) Cholesterol 179 See Note mg/dL 11/28/2019 17:12 [facility] Comment: Acceptable: ?<200 mg/dL Borderline High: 200-239 mg/dL High: ?> or = 240 mg/dL HDL 38 See Note mg/dL 11/28/2019 17:12 [facility] Comment: Low: ? <40 mg/dL Normal: ??40-60 mg/dL High: ?>60 mg/dL LDL, Calculated 61 See Note mg/dL 11/28/2019 17:12 [facility] Comment: Optimal: ? <100 mg/dL Near Optimal: ?100-129 mg/dL Borderline High: 130-159 mg/dL High: ?160-189 mg/dL Very High: ? > or = 190 mg/dL Triglyceride 398 See Note mg/dL 11/28/2019 17:12 [facility] Comment: Normal: ? <150 mg/dL Borderline High: ??150 - 199 mg/dL High: ? 200 - 499 mg/dL Very High: ?> or = 500 mg/dL Chol/HDL Ratio 4.7 See Note 11/28/2019 17:12 [facility] Comment: No reference range has been established for CHOL/HDL ratio. Non HDL Cholesterol 141 See Note mg/dL 11/28/2019 17:12 [facility] Comment: Desirable: ?<130 mg/dL Borderline High: ??130-159 mg/dL High: ? 160-189 mg/dL Very High: ?> or = 190 mg/dL Blood VENOUS BLOOD / Unknown Venipuncture / Unknown 11/28/2019 15:56 EDT 11/28/2019 15:56 EDT Tonja Alejandro PA-C CHEMISTRY & BLOOD GA S ORDERABLES Final Result [facility] [address] [place] [address] from Last 3 Months or Most Recently Relevant to Health Maintenance Advance Directives For more information, please contact: [phone] Documents on File Type Date Recorded Patient Estate Planning Director Expl anation Advance Directive 11/23/2022 10:36 Appt [...] participated in the discussion? Patient Care Teams Steam Shovel Operator Relationship Specialty Start Date End Date Carrington Calderon MD 1 [facility] 1 [place] [phone] PCP - General Internal Medicine - Primary Care 12/09/20 Carmelo Hendrickson Coordinator 12/01/23 Abigail Díaz Barking Machine Feeder 01/04/24
--- OUTSIDE RECORDS SUMMARY | 2024-05-31 07:23 | XMS_ITS | Encounter Summary ---
Author Organization [facility] Address [address] [place] [address] Care Team Providers Care Mold Runner Name Role Phone Carrington Calderon MD Primary Care Provi anders Carmelo Hendrickson Unavailable Unavailable Abigail Díaz Unavailable Encounter Details Date Type Department Care Team (Late st Contact Info) Description 04/06/2024 Abstract [facility] - [place] [address] [place] [address] Carrington Calderon MD 1 [facility] 1 [place] [address] Social History Tobacco Use Types Packs/Day Years Used Date Smoking Tobacco: Every Day Cigarettes 0.5 13.6 Started: 11/10/2010 Smokeless Tobacco: Never Comments:06/13/20 actively try ing to quit about 5-8 cigs/day Alcohol Use Standard Drinks/Week Comments Yes 0 (1 standard drink = 0.6 oz pur e alcohol) rarely C Utilities Answer Date Recorded In the past 12 months has [employer], gas, oil, or water company threatened to [...] your living situation today? I have a [facility] place to live 04/03/2024 Think about [...] filedocumented in this encounter Care Teams Mold Runner Relationship Specialty Start Date End Date Carrington Calderon MD 1 [facility] [address] [place] [phone] PCP - General Internal Medicine - Primary Care 12/09/20 Carmelo Hendrickson Coordinator 12/01/23 Abigail Díaz Railroad Track Inspector 01/04/24 documented as of this encounter
--- OUTSIDE RECORDS SUMMARY | 2024-05-31 07:23 | XMS_ITS | Encounter Summary ---
Author Organization [facility] Address [address] [place] [address] Care Team Providers Care Calciner Operator Name Role Phone Carrington Calderon MD Primary Care Provi anders Carmelo Hendrickson Unavailable Unavailable Abigail Díaz Unavailable Reason for Visit * Reason Onset Date Comments Torticollis 02/06/2024 Encounter Details Date Type Department Care Team (Late st Contact Info) Description 02/06/2024 Telephone [facility] Adult Primary Care - [place] [address] [place] [address] Cedric Yoon MD [address] [place] [address] Torticollis Social History Tobacco Use [...] No 10/02/2020 23:50 Rivre Cavanaugh RN documented as of this encounter [...] on filedocumented in this encounter Care Teams Calciner Operator Relationship Specialty Start Date End Date Carrington Calderon MD 1 [facility] 1 [place] [address] PCP - General Internal Medicine - Primary Care 12/09/20 Carmelo Hendrickson Coordinator 12/01/23 Abigail Díaz Fertilizer Loader 01/04/24 documented as of this encounter
--- OUTSIDE RECORDS SUMMARY | 2024-05-31 07:23 | XMS_ITS | Encounter Summary ---
Author Organization [facility] Address [address] [place] [address] Care Team Providers Care Shoe Treer Name Role Phone Carrington Calderon MD Primary Care Provi anders Carmelo Hendrickson Unavailable Unavailable Abigail Díaz Unavailable Encounter Details Date Type Department Care Team (Late st Contact Info) Description 04/06/[address] [facility] Adult Primary [facility] - [place] [address] [place] [address] Carrington Calderon MD 1 [facility] 1 [place] [address] Social History Tobacco Use Types Packs/Day Years Used Date Smoking Tobacco: Every Day Cigarettes 0.5 13.6 Started: 11/10/2010 Smokeless Tobacco: Never Comments:06/13/20 actively try ing to quit about 5-8 cigs/day Alcohol Use Standard Drinks/Week Comments Yes 0 (1 standard drink = 0.6 oz pur e alcohol) rarely C Utilities Answer Date Recorded In the past 12 months has [employer], gas, oil, or water company threatened to [...] time in the past 12 m [facility], were you homeless or living in a [...] your living situation today? I have a [facility] place to live 04/03/2024 Think about [...] BLOOD G ORDERABLES Final Result [facility] POINT OF CARE documented in this encounter Visit Diagnoses Not on filedocumented in this encounter Care Teams Shoe Treer Relationship Specialty Start Date End Date Carrington Calderon MD 1 [facility] Level [address] [place] [address] PCP - General Internal Medicine - Primary Care 12/09/20 Carmelo Hendrickson Coordinator 12/01/23 Abigail Díaz Label Operator 01/04/24 documented as of this encounter
--- OUTSIDE RECORDS SUMMARY | 2024-05-31 07:23 | XMS_ITS | Encounter Summary ---
Author Organization [facility] Address [address] [place] [address] Care Team Providers Care Helmet Binder Name Role Phone Carrington Calderon MD Primary Care Provi anders Carmelo Hendrickson Unavailable Unavailable Abigali Díaz Unavailable [phone] Reason for Referral * Referral (Routine/Next Available) - Authorization Not Required Specialty Diagnoses / Procedures Referred By Contac t Referred To Contact Multidisciplinary Diagnoses Type 2 diabetes mellitus with foot ulcer (CODE) ([facility]) Carrington Calderon MD 1 [facility] 1 [place] [address] Phone: tel: fax: [address], [address] [place] [address] Phone: tel: fax: Referral ID Status Reason Start Date Expiration Date Visits Requested Visits Authorized [id number] Authorization Not Required Specialty Services Required 03/16/20 24 1 1 Question Answer Reason for Request: uncontrolled diabetes Reason for Visit * Reason Onset Date Comments Coordination Of Care 03/16/2024 Encounter Details Date Type Department Care Team (Late st Contact Info) Description 03/16/[address] [facility] Adult Primary Care [address] [address] Carrington Calderon MD 1 [facility] Level [address] [place] [phone] Coordination Of Care Social History Tobacco Use Types Packs/Day Years Used Date Smoking Tobacco: Every Day Cigarettes 0.5 13.6 Started: 11/10/2010 Smokeless Tobacco: Never Comments:06/13/20 actively try ing to quit about 5-8 cigs/day Alcohol Use Standard Drinks/Week Comments Yes 0 (1 standard drink = 0.6 oz pur e alcohol) rarely [facility] Utilities Answer Date Recorded In the past 12 months has [email or web address] electric, gas, oil, or water company [...] to discuss her outside labs received from [facility], notable for WBC 14 and A1C of 11.9. No answer. Reviewed account in [employer]. No data since September. Care management [...] UP OUTPATIENT CARE MANAGEMENT - [facility] Outpatient Referral Routine/Next Available Type 2 diabetes mellitus with foot ulcer (CODE) ([facility]) Expected: 03/23/2024 (Approximate), Expires: 03/16/2025 documented as of this encounter Visit Diagnoses Diagnosis Type 2 diabetes mellitus with foot ulcer (CODE) ([facility])- Primary documented in this encounter Care Teams Helmet Binder Relationship Specialty Start Date End Date Carrington Calderon MD 1 [facility] [address] [place] [phone] PCP - General Internal Medicine - Primary Care 12/09/20 Carmelo Hendrickson Coordinator 12/01/23 Abigail Díaz Forestry Technician 01/04/24 documented as of this encounter
--- OUTSIDE RECORDS SUMMARY | 2024-05-31 07:23 | XMS_ITS | Encounter Summary ---
Author Organization [facility] Address [address] [place] [address] Care Team Providers Care Solar Sales Rep Name Role Phone Carrington Calderon MD Primary Care Provi anders Carmelo Hendrickson Unavailable Unavailable Abigail Díaz Unavailable [phone] Reason for Visit * Reason Comments Medications Refill Encounter Details Date Type Department Care Team (Late st Contact Info) Description 05/13/2024 Refill [facility] Adult Primary Care - [address] [phone] Carrington Calderon MD [address] [phone] Medications Refill Social History Tobacco Use Types [...] Recorded In the past 12 months has [employer] electric, gas, oil, or water company [...] any time in the past 12 m [facility], were you homeless or living [...] your living situation today? I [facility] to live 04/03/2024 Think about the [...] the past 12 months has th e [employer], gas, oil, or water company threatened to [...] type 2 diabetes mellitus ([facility]),Primary insomnia Take 1 capsule by mouth at bedtime 30 Capsule 05/14/2024 documented in this encounter Miscellaneous Notes * Telephone Encounter - Cortney Galindo RN - 05/14/2024 5353 EST Medication(s) Requested: nortriptyline Preferred Pharmacy: [facility] [address] [place] [address] Is patient out of medication? Unknown Last Refill Date: 02/21/2024 Last Visit Date with Ordering Provider: 02/21/2024 Next Non-Acute Visit Date Scheduled with Care Team: Visit date not found CORTNEY GALINDO RN 05/14/2024 15:39 documented in this encounter Plan of Treatment Not on file documented as of this encounter Visit Diagnoses Diagnosis Diabetic polyneuropathy associated with type 2 diabetes mellitus ([facility]) Primary insomnia Persistent disorder of initiating or maintaining sleep documented in this encounter Discontinued Medications Medication Sig Discontinue Reason Start Date End Da te nortriptyline (PAMELOR) 10 mg capsuleIndications:Diabeti c polyneuropathy associated with type 2 diabetes mellitus ([facility]),Primary insomnia Take 1 Capsule by mouth at bedtime. 02/21/2024 05/14/2024 documented as of this encounter Care Teams Solar Sales Rep Relationship Specialty Start Date End Date Carrington Calderon MD 1 [facility] 1 [place] [address] PCP - General Internal Medicine - Primary Care 12/09/20 Carmelo Hendrickson Coordinator 12/01/23 Abigail Díaz Compliance Coordinator 01/04/24 documented as of this encounter
--- OUTSIDE RECORDS SUMMARY | 2024-05-31 07:23 | XMS_ITS | Encounter Summary ---
Author Organization [facility] Address [address] [place] [address] Care Team Providers Care Physician/Ophthalmologist Name Role Phone Carrington Calderon MD Primary Care Provi anders Carmelo Hendrickson Unavailable Unavailable Abigail Díaz Unavailable [phone] Encounter Details Date Type Department Care Team (Late st Contact Info) Description 04/19/2024 Patient Outreach [facility] Adult Primary Care - [place] [address] [place], [place] [phone] Sivan Krueger RN Social History Tobacco Use Types Packs/Day Years Used Date Smoking Tobacco: Every Day Cigarettes 0.5 13.6 Started: 11/10/2010 Smokeless Tobacco: Never Comments:06/13/20 actively try ing to quit about 5-8 cigs/day Alcohol Use Standard Drinks/Week Comments Yes 0 (1 standard drink = 0.6 oz pur e alcohol) rarely [facility] Utilities Answer Date Recorded In the past 12 months has [employer], gas, oil, or water [employer] threatened to shut off services in your [...] your living situation today? I have a [facility] place to live 04/03/2024 Think about [...] the past 12 months has th e [employer], gas, oil, or water [employer] threatened to shut off services in your [...] Sivan Krueger RN - 04/19/2024 0937 EST [facility] Integrated Care Management Care Coordination Note manager contracting has been unable to reach patient by phone for diabetes pathway follow up. Patient has not made contact with department of natural resources officer for help getting health insurance. Patient missed visit with matlab developer, and has not followed up to reschedule. PLAN: Follow up in 3 months or sooner if patient returns call. SIVAN KRUEGER RN 04/23/2024 11:27 documented in this encounter Plan of Treatment Not on file documented as of this encounter Visit Diagnoses Not on filedocumented in this encounter Care Teams Physician/Ophthalmologist Relationship Specialty Start Date End Date Carrington Calderon MD 1 [facility] 1 [place] [phone] PCP - General Internal Medicine - Primary Care 12/09/20 Carmelo Hendrickson Coordinator 12/01/23 Abigail Díaz Fireworks Display Specialist 01/04/24 documented as of this encounter
--- OUTSIDE RECORDS SUMMARY | 2024-05-31 07:23 | XMS_ITS | Encounter Summary ---
Author Organization [facility] Address [address] [place] [address] Care Team Providers Care Partition Making Machine Operator Name Role Phone Carrington Calderon MD Primary Care Provi anders Carmelo Hendrickson Unavailable Unavailable Abigail Díaz Unavailable [phone] Encounter Details Date Type Department Care Team (Late st Contact Info) Description 03/22/2024 Patient Outreach [facility] Adult Primary Care - [place] [address] [place], [place] [phone] Nohemy Krueger RN Social History Tobacco Use Types Packs/Day Years Used Date Smoking Tobacco: Every Day Cigarettes 0.5 13.6 Started: 11/10/2010 Smokeless Tobacco: Never Comments:06/13/20 actively try ing to quit about 5-8 cigs/day Alcohol Use Standard Drinks/Week Comments Yes 0 (1 standard drink = 0.6 oz pur e alcohol) rarely [facility] Utilities Answer Date Recorded In the past 12 months has [employer], gas, oil, or water [employer] threatened to shut off services in your [...] in the past 12 m [facility], were you homeless or living in a [...] your living situation today? I have a [facility] place to live 04/03/2024 Think [...] the past 12 months has th e [employer], gas, oil, or water [employer] threatened to shut off services in your [...] my care team, like my doctor, nurse, geothermal powerplant mechanic, adaptive physical educator or pharmacist and I don't know what [...] He works for the state at a classification officer in [facility]. Stella would like help getting insurance. [...] She is interested in meeting with a geothermal powerplant mechanic. 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 She is interested in managing her diabetes better. Stella's Biggest problem today is lack of health insurance so she can't afford the dex com CGM. This CM will have human resources services specialist call Stella to discuss insurance. DM-related Self Management Goal: check glucose 2 times daily on a regular basis. Intervention: referral to human resources services specialist, and CDE Follow up plan: CM will follow-up in one month documented in this encounter Plan of Treatment Not on file documented as of this encounter Visit Diagnoses Not on filedocumented in this encounter Care Teams Partition Making Machine Operator Relationship Specialty Start Date End Date Carrington Calderon MD 1 [facility] 1 [place] [phone] PCP - General Internal Medicine - Primary Care 12/09/20 Carmelo Hendrickson Coordinator 12/01/23 Abigail Díaz Customer Supply Coordinator 01/04/24 documented as of this encounter
--- OUTSIDE RECORDS SUMMARY | 2024-05-31 07:23 | XMS_ITS | Encounter Summary ---
Author Organization [facility] Address [address] [place] [address] Care Team Providers Care Nursery Laborer Name Role Phone Carrington Calderon MD Primary Care Provi anders Carmelo Hendrickson Unavailable Unavailable Abigail Díaz Unavailable [phone] Encounter Details Date Type Department Care Team (Late st Contact Info) Description 04/06/2024 Abstract [facility] Adult Primary Care - [place] [address] [place] [address] Carrington Calderon MD 1 [facility] 1 [place] [address] Social History Tobacco Use Types Packs/Day Years Used Date Smoking Tobacco: Every Day Cigarettes 0.5 13.6 Started: 11/10/2010 Smokeless Tobacco: Never Comments:06/13/20 actively try ing to quit about 5-8 cigs/day Alcohol Use Standard Drinks/Week Comments Yes 0 (1 standard drink = 0.6 oz pur e alcohol) rarely C Utilities Answer Date Recorded In the past 12 months has [employer], gas, oil, or water company threatened to [...] any time in the past 12 m [facility], were you homeless or [...] CHEMISTRY & BLOOD G ORDERABLES Final Result [facility] POINT OF CARE documented in this encounter Visit Diagnoses Not on filedocumented in this encounter Care Teams Nursery Laborer Relationship Specialty Start Date End Date Carrington Calderon MD 1 [facility] Level [address] [place] [address] PCP - General Internal Medicine - Primary Care 12/09/20 Carmelo Hendrickson Coordinator 12/01/23 Abigail Díaz Animal Park Code Enforcement Officer 01/04/24 documented as of this encounter
--- OUTSIDE RECORDS SUMMARY | 2024-05-31 07:23 | XMS_ITS | Referral Summary ---
Author Organization [facility] Address [address] [place] [address] Care Team Providers Care X Ray Examiner Of Aircraft Name Role Phone Carrington Calderon MD Primary Care Provi anders Carmelo Hendrickson Unavailable Unavailable Abigail Díaz Unavailable Encounters Date Type Department Care Team Description 05/13/2024 Refill [facility] Primary [facility] [address] [place], [place] [address] Carrington Calderon MD Medications Refill 04/19/2024 Patient Outreach [facility] [address] [place] [address] Nohemy Krueger RN 04/12/2024 Patient Outreach [facility] Primary [facility] [address] [place], [place] [address] Carmelo Hendrickson 04/06/2024 Abstract [facility] Primary [facility] [address] [place], [place] [address] Carrington Calderon MD 04/06/2024 Abstract [facility] Primary [facility] [address] [place], [place] [address] Carrington Calderon MD 04/06/2024 Abstract [facility] Primary [facility] [address] [place], [place] [address] Carrington Calderon MD 04/06/2024 Abstract [facility] Primary [facility] [address] [place] [address] Carrington Calderon MD 04/05/2024 Telephone [facility] [address] [place] [address] CD Diabetes (Diabetes pathway patient) 04/03/2024 Patient Outreach [facility] Primary [facility] [address] [place] [address] Carmelo Hendrickson 04/03/2024 Patient Outreach [facility] Primary [facility] [address] [place] [address] Nohemy Krueger RN 03/22/2024 Patient Outreach [facility] [address] [place] [address] Nohemy Krueger RN 03/16/2024 Telephone [facility] Primary [facility] 1 [place] [address] Carrington Calderon MD Coordination Of Care from [...] (10 doses) 10 Tablet Active Blood-Glucose Sensor (MiSiedo G6 SENSOR) deviceIndications :Type 2 diabetes mellitus with diabetic polyneuropathy, with long-term current use of insulin ([facility]) Inject 1 Each into the [...] use of insulin ([facility]) Inject 44 Units into the skin at bedtime. 36 mL Active SITagliptin phosphate (JANUVIA) 100 mg tabletIndications :Type 2 diabetes mellitus with diabetic polyneuropathy, with long-term current use of insulin ([facility]) Take 1 Tablet by mouth [...] type 2 diabetes mellitus ([facility]) Take 1 Capsule by mouth every morning AND 4 Capsules at bedtime. 450 Capsule Active SUMAtriptan (IMITREX) 20 mg/actuation nasal spray USE 1 SPRAY(S) INTO RIGHT NOSTRIL NEEDED FOR MIGRAINE HEADACHE 6 Each 1 024 Active Blood-Glucose Transmitter (DEXCOM G6 TRANSMITTER) deviceIndications :Type 2 diabetes mellitus with diabetic polyneuropathy, with long-term current use of insulin ([facility]) Inject 1 Each into the skin every 3 months. 1 Each 4 024 Active HUMALOG KWIKPEN INSULIN 100 unit/mL injectable penIndications:Ty pe 2 diabetes mellitus with diabetic polyneuropathy, with long-term current use of insulin ([facility]) 8 units with breakfast, 15 [...] use of insulin ([facility]) Brand: Freestyle Lite 1 Each 024 Active blood glucose test stripsIndications :Type 2 diabetes mellitus with diabetic polyneuropathy, with long-term current use of insulin ([facility]) Brand: Freestyle Lite, check glucose 4 times per day for insulin dose titration 100 Each 024 Active lancetsIndication s:Type 2 diabetes mellitus with diabetic polyneuropathy, with long-term current use of insulin ([facility]) Brand: Freestyle, check glucose 4 times per day for insulin dose titration 100 Each 11 024 Active DULoxetine 40 mg capsule,delayed release(DR/EC)Ind ications:Anxiety and depression Take 1 capsule by mouth once daily 90 Capsule 3 024 Active nortriptyline (PAMELOR) 10 mg capsuleIndication s:Diabetic polyneuropathy associated with type 2 diabetes mellitus ([facility]),Primary insomnia Take 1 capsule by [...] 06/19 Patient has given permission for [facility] to verbally discuss the following information [...] Confirmed patient has Traditional Medicaid now. TCN: [id number] Category: P2 Garfield Healy 06/10/2020 19:11 Problem [...] use of insulin ([facility]) 06/05/2020 Overview (11/17/2022): - Dx [...] approx 2012 - had SI, treated at [facility]. Marijuana prn to help with stress/anxiety sx -Describes paradoxical effect of citalopram, reportedly resulting in the above admission at [facility] Migraine with aura and witho ut status [...] (06/27/2020): Added automatically from request for surgery [id number] of unknown anatomic location 06/20/2020 06/27/2020 Overview (06/27/2020): Clinical Group: [facility] Patient HPI: Cristy Luo is an 35 y.o. , patient with history of ectopic and positive HCG during post operative period for unrelated procedure. Reported cramping to [facility] nurse on 06/19. LMP: End of the first week of May Rh status: B- Rhogam: Given by [facility] 06/20/20 Desired : Unknown Ectopic risk factors: hx of ectopic pregnancies and five D&C's . 10/2018: Interstitial treated w/ MTX. HCGs Lab Results Component Value Date HCGPREG 49 (H) 06/25/2020 HCGPREG 111 (H) 06/23/2020 HCGPREG 152 (H) 06/21/2020 HCGPREG 108 (H) 06/19/2020 HCGPREG 2,954 (H) 10/11/2019 HCGPREG 707 (H) 09/02/2019 HCGPREG 316 (H) 08/31/2019 Plan: 06/20/2020: US today and given RhoGham by [facility]. Place in BB per MD Esteban Cade. [...] repeat HCG 06/25 & U/S 06/25 in PATTERN TECHNICIAN clinic. MARCELO Dale 06/25/20: U/S results - [...] (06/05/2020): Added automatically from request for surgery [id number] Type 2 diabetes mellitus wit h left diabetic foot ulcer ([facility]) 05/03/2020 03/27/2021 Osteomyelitis of great toe o f left foot ([facility]) 03/12/2020 06/11/2021 Diabetic foot ulcer associat ed with diabetes mellitus due to underlying condition ([facility]) 03/07/2020 03/27/2021 Diabetic foot infection ([facility]) 03/06/2020 06/11/2021 Diabetic foot ulcer ([facility]) 03/06/2020 06/11/2021 Cellulitis of great toe of left foot 11/26/2019 06/11/2021 Encounter for sterilization 11/20/2019 06/20/2020 Overview (11/20/2019): Added automatically from request for surgery [id number] Missed 10/12/2019 10/15/2019 Overview (10/15/2019): Clinical Group: [...] PCR results found No results found for: [id number] HgA1c [ ] 1T pending [ ] [...] Ectopic 10/25/2018 10/12/2019 Overview (12/25/2018): Clinical Group: [facility] (eg. COGS, ED patient, UOM, MFM, EDIS) [...] Quant Beta HCG = 1652.8 mIU[place]ml [place] [facility] [place]/10/2018: Quant Beta HCG, Preg 1,117 mIU/ml* (Ref range: <5 mIU/ml) 11/21/18: Quant Beta HCG 299.98 mIU/mL at [facility] (ref range <2.39) 12/03/18: Quant Beta HCG, 41.94 mIU/ml at [facility] 12/13/18: Quant Beta HCG, 13.63 mIU/ml at [facility] Plan: 10/24/18: per Dr. Coronado repeat [...] go to lab 11/08. States will go 11/09/18.[facility] 11/10/18: Plan per Dr. Almeida, repeat HCG in 1 week (11/17). Results & plan reviewed with Cristy. MARCELO Dale 11/21/18 Pt plans on going to [facility] today. [facility] 11/21/18. CG 299.98. Repeat in 1 week. Pt would like to go 11/27/18([facility]) as off from work [facility] 12/01/18: LVM for pt to repeat lab work kimberly. This was the fourth call. MARCELO WEBB 12/03/18: Per Dr. Kenyon, repeat HCG 12/10. LVM for pt with plan (count as 1st attempt). MARCELO WEBB 12/11/18: LVM (second call) re: HCG due. MARCELO Dael 12/12/18: Spoke with Cristy, she will get HCG drawn 7 am. NOS MFM consult, will be rescheduled. MARCELO Dale 12/15/18: Plan per Dr. Gill repeat HCG in one week (12/20), MFM CON 03/02/19. LVM for Cristy with plan. MARCELO Dale 12/25/18: [place] [facility] [place] last HCG was 12/13, NOS for 12/20, LVM X3, letter sent, will remove from Beta Book.MARCELO Dale Spontaneous miscarriage 09/04/201510/05 Overview (09/04/2015): 02/18, 08/19. Followed by Dr. López[facility] in OBGYN Type 2 diabetes mellitus ([facility]) 09/03/2015 06/11/2021 Overview (06/11/2021): - [...] has e electric, gas, oil, or water [employer] threatened to shut off services in your [...] your living situation today? I have a [facility] place to live 04/03/2024 Think about [...] mellitus with other specified complication, unspecified whether prison insulin use ([facility]) URINE QNOSYAA-II-KWMELBEXGH RATIO (ACR) Routine 11/28/2019 15:56 EDT Type 2 diabetes mellitus with other specified complication, unspecified whether prison insulin use ([facility]) from Last 3 Months or [...] PROB E ORDERABLES Edited Result - Final [facility] POINT [facility] * C REACTIVE PROTEIN (03/12/2024) C-Reactive Protein, External 0.57 [facility] POINT OF CARE Blood VENOUS BLOOD / Unknown 03/12/2024 Carrington Calderon MD CHEMISTRY & BLOOD G ORDERABLES Final Result [facility] POINT OF CARE * HEMOGLOBIN A1C (03/12/2024) Hemoglobin A1C, External 11.9 % [facility] POINT OF CARE Est Avg Glucose, External 5.7-6.4 mg/dL [facility] POINT OF CARE Blood VENOUS BLOOD / Unknown 03/12/2024 Carrington Calderon MD CHEMISTRY & BLOOD G ORDERABLES Final Result [facility] POINT OF CARE * HEPATITIS C AB W REFLEX TO HCV RNA BY PCR (11/11/2023 13:53 EDT) Hep C Antibody Negative Negative 11/11/2023 17:03 EDT [facility] Blood VENOUS BLOOD / Unknown Venipuncture / Unknown 11/11/2023 13:53 EDT 11/11/2023 13:55 EDT Carrington Calderon MD CHEMISTRY & BLOOD G ORDERABLES Final Result Performing Organization Address [facility] de Phone Number [facility] [address] [place] [address] * HIV 1/2 ANTIGEN AND ANTIBODY, 4TH GENERATION (11/11/2023 13:53 EDT) HIV 1 and 2 Antibody/p24 Antigen, 4th Generation Negative Negative 11/11/2023 17:04 EDT [facility] Comment:If acute HIV-1 infec tion is suspected in a high risk patient, submit plasma specimen for HIV-1 RNA quantitation test. Blood VENOUS BLOOD / Unknown Venipuncture / Unknown 11/11/2023 13:53 EDT 11/11/2023 13:55 EDT Narrative [facility] - 11/11/2023 17:04 EDT Fourth Generation assay performed on the Siemens [employer] XPT. Carrington Calderon MD IMMUNOLOGY AND SERO LOGY ORDERABLES Final Result Performing Organization Address [facility] Co de Phone Number [facility] [address] [place] [phone] * PAP TEST (06/27/2023 16:00 EST) Specimens A. Cervix and/or Endocervix , ThinPrep Imaging System with Manual Evaluation 07/13/2023 16:25 EST [facility] Specimen Adequacy Satisfactory for Evaluation - transformation zone component absent 07/13/2023 16:25 EST [facility] General Categorization Negative for intraepithelial lesion or malignancy 07/13/2023 16:25 EST [facility] Attestation . 07/13/2023 16:25 [facility] at 1625 Clinical History screening 07/13/19 16:25 [facility] HPV The result for the Human Papillomavirus (HPV) Detection-High Risk Types is Negative. No E6 or E7 mRNA is detected from HPV types 16,18,31,33,35,39 ,45,51,52,56,58,5 9,66, and 68 by hvac operations technician mediated amplification.Lorena ting was performed on specimen [id number] and was resulted on 07/13/2023 1625 EST by JANET, LAB INSTRUMENT RESULTS IN 07/13/2023 16:25 [facility] Performing Lab [facility] 07/13/2023 16:25 [facility] Scanned Images 07/13/2023 16:25 [facility] Pap Test CERVIX UTERI STRUCTURE / Unknown 06/27/2023 16:00 EST 06/27/2023 16:00 EST us Carrington Calderon MD PATHOLOGY ORDERABLE S Final Result Performing Organization Address City/State/[facility] Co de Phone Number [facility] [address] [place] [address] * (ABNORMAL) ALBUMIN, URINE (11/28/2019 15:56 EDT) Albumin, Urine 11.3 See Note mg/dL 2019 16:47 [facility] Comment: NOTE: Reference range not established Creatinine, Urine 143.1 See Note mg/dL 11/28/2019 16:47 [facility] Comment: NOTE: Reference range not established Lab Urine Albumin to Creatinine Ratio 79(H) <30 ug/mg Creatinine 11/28/2019 16:47 [facility] Comment: Urine Albumin/Creatinine Ratio: Normal: <30 ug/mg Creatinine Moderately increased albuminuria: 30-300 ug/mg Creatinine Severley increased albuminuria: >300 ug/mg Creatinine Urine URINE SPECIMEN OBTAINED BY CLEAN CATCH PROCEDURE / Unknown Urine Collect / Unknown 11/28/2019 15:56 EDT 11/28/2019 15:56 EDT us Tonja Alejandro PA-C CHEMISTRY & BLOOD GA S ORDERABLES Final Result [facility] [address] [place] [address] * LIPID PROFILE (INCLUDES CHOLESTEROL, TRIGLYCERIDES, HDL, LDL) (11/28/2019 15:56 EDT) Cholesterol 179 See Note mg/dL 11/28/2019 17:12 [facility] Comment: Acceptable: ?<200 mg/dL Borderline High: 200-239 mg/dL High: ?> or = 240 mg/dL HDL 38 See Note mg/dL 11/28/2019 17:12 [facility] Comment: Low: ? <40 mg/dL Normal: ??40-60 mg/dL High: ?>60 mg/dL LDL, Calculated 61 See Note mg/dL 11/28/2019 17:12 [facility] Comment: Optimal: ? <100 mg/dL Near Optimal: ?100-129 mg/dL Borderline High: 130-159 mg/dL High: ?160-189 mg/dL Very High: ? > or = 190 mg/dL Triglyceride 398 See Note mg/dL 11/28/2019 17:12 [facility] Comment: Normal: ? <150 mg/dL Borderline High: ??150 - 199 mg/dL High: ? 200 - 499 mg/dL Very High: ?> or = 500 mg/dL Chol/HDL Ratio 4.7 See Note 11/28/2019 17:12 [facility] Comment: No reference range has been established for CHOL/HDL ratio. Non HDL Cholesterol 141 See Note mg/dL 11/28/2019 17:12 [facility] Comment: Desirable: ?<130 mg/dL Borderline High: ??130-159 mg/dL High: ? 160-189 mg/dL Very High: ?> or = 190 mg/dL Blood VENOUS BLOOD / Unknown Venipuncture / Unknown 11/28/2019 15:56 EDT 11/28/2019 15:56 EDT us Tonja Alejandro PA-C CHEMISTRY & BLOOD GA S ORDERABLES Final Result [facility] [address] [place] [address] from Last 3 Months or Most Recently Relevant to Health Maintenance Administered Medications Advance Directives For more information, please contact: [phone] Documents on File Type Date Recorded Patient Box Toe Stitcher Expl anation Advance Directive 11/23/2022 10:36 Appt [...] participated in the discussion? Patient Care Teams X Ray Examiner Of Aircraft Relationship Specialty Start Date End Date Carrington Calderon MD 1 [facility] [address] [place] [address] PCP - General Internal Medicine - Primary Care 12/09/20 Carmelo Hendrickson Coordinator 12/01/23 Abigail Díaz Animal Damage Control Agent 01/04/24
--- OUTSIDE RECORDS SUMMARY | 2024-05-31 07:23 | XMS_ITS | Encounter Summary ---
Author Organization [facility] Address [address] [place] [address] Care Team Providers Care Pickle Cutter Name Role Phone Carrington Calderon MD Primary Care Provi anders Carmelo Hendrickson Unavailable Unavailable Abigail Díaz Unavailable Encounter Details Date Type Department Care Team (Late st Contact Info) Description 04/06/2024 Abstract [facility] Adult Primary Care - [place] [address] [place] [address] Carrington Calderon MD 1 [facility] 1 [place] [address] Social History Tobacco Use Types Packs/Day Years Used Date Smoking Tobacco: Every Day Cigarettes 0.5 13.6 Started: 11/10/2010 Smokeless Tobacco: Never Comments:06/13/20 actively try ing to quit about 5-8 cigs/day Alcohol Use Standard Drinks/Week Comments Yes 0 (1 standard drink = 0.6 oz pur e alcohol) rarely C Utilities Answer Date Recorded In the past 12 months has [employer], gas, oil, or water company threatened to [...] your living situation today? I have a [facility] place to live 04/03/2024 Think [...] A1C (03/12/2024) Hemoglobin A1C, External 11.9 % [facility] POINT OF CARE Est Avg Glucose, External 5.7-6.4 mg/dL [facility] POINT OF CARE Blood VENOUS BLOOD / Unknown 03/12/2024 Carrington Calderon MD CHEMISTRY & BLOOD G ORDERABLES Final Result [facility] POINT OF CARE documented in this encounter Visit Diagnoses Not on filedocumented in this encounter Care Teams Pickle Cutter Relationship Specialty Start Date End Date Carrington Calderon MD 1 [facility] [address] [place] [address] PCP - General Internal Medicine - Primary Care 12/09/20 Carmelo Hendrickson Coordinator 12/01/23 Abigail Díaz Disaster Recovery Specialist 01/04/24 documented as of this encounter
--- OUTSIDE RECORDS SUMMARY | 2024-05-31 07:23 | XMS_ITS | Encounter Summary ---
Author Organization [facility] Address [address] [place] [address] Care Team Providers Care Instrumentation And Controls Technician Name Role Phone Carrington Calderon MD Primary Care Provi anders Carmelo Hendrickson Unavailable Unavailable Abigail Díaz Unavailable [phone] Reason for Visit * Reason Onset Date Comments Neck Pain 02/06/2024 Encounter Details Date Type Department Care Team (Late st Contact Info) Description 02/06/2024 Telephone [facility] Adult Primary Care - [place] [address] [place] [address] Cedric Yoon MD [address] [place] [address] Neck Pain Social History Tobacco [...] Encounter - Jesi Lua RN - 02/22/2024 1632 EDT Pt seen 02/21/24 * Telephone Encounter - Jesi Lua RN - 02/07/2024 0831 EDT Left message for pt to call back to see if she went to a local ER (lives in [facility]) or how is she feeling [...] on filedocumented in this encounter Care Teams Instrumentation And Controls Technician Relationship Specialty Start Date End Date Carrington Calderon MD 1 [facility] Level [address] [place] [phone] PCP - General Internal Medicine - Primary Care 12/09/20 Carmelo Hendrickson Coordinator 12/01/23 Abigail Díaz Microbiology Technologist 01/04/24 documented as of this encounter
--- OUTSIDE RECORDS SUMMARY | 2024-05-31 07:24 | XMS_ITS | Encounter Summary ---
Author Organization [facility] Address [address] [place] [address] Care Team Providers Care Lease Analyst Name Role Phone Carrington Calderon MD Primary Care Provi anders Abigail Díaz Unavailable [phone] Carmelo Hendrickson Unavailable Unavailable Abigail Díaz Unavailable Reason for Visit * Reason Onset Date Comments Medications Refill 07/06/2023 Encounter Details Date Type Department Care Team (Late st Contact Info) Description 07/06/2023 Refill [facility] Adult Primary Care - [address] [id number] Carrington Calderon MD 1 [facility] Level [address] [place] [phone] Medications Refill Social History Tobacco Use Types [...] living situation today? I have a [facility] place to live 04/03/2024 Think about [...] No 10/02/2020 23:50 River aCvanaugh RN * Because of a physical, mental, [...] polyneuropathy, with long-term current use of insulin ([facility]) Inject 1 Each into the skin every 3 months. 1 Each 4 07/07/2023 documented in this encounter Miscellaneous Notes * Telephone Encounter - Berenice Mahan - 07/06/2023 0953 EST Medication(s) Requested/ Last Ordered: Dexcom Transmitter 03/16/23 Preferred Pharmacy: [facility] [address] [place] [address] Is patient out of medication? Yes Last Visit Date with Ordering Provider: 06/27/2023 Next Non-Acute Visit Date Scheduled with Care Team: 08/15/2023 Berenice Mahan 07/06/2023 9:54 documented in this encounter Plan of Treatment Not on file documented as of this encounter Visit Diagnoses Diagnosis Type 2 diabetes mellitus with diabetic polyneuropathy, with long-term current use of insulin (HCC-CMS) ([facility])- Primary documented in this encounter Discontinued Medications Medication Sig Discontinue Reason Start Date End Da te Blood-Glucose Transmitter (DEXCOM G6 TRANSMITTER) deviceIndications:Type 2 diabetes mellitus with diabetic polyneuropathy, with long-term current use of insulin ([facility]) Inject 1 Each into the skin every 3 months. Reorder 03/16/2023 07/06/2023 documented as of this encounter Care Teams Lease Analyst Relationship Specialty Start Date End Date Carrington Calderon MD 1 [facility] 1 [place] [address] PCP - General Internal Medicine - Primary Care 12/09/20 Abigail Díaz Insole Department Worker 04/21/23 01/03/24 Carmelo Hendrickson Coordinator 12/01/23 Abigail Díaz Insole Department Worker 01/04/24 documented as of this encounter
--- OUTSIDE RECORDS SUMMARY | 2024-05-31 07:24 | XMS_ITS | Encounter Summary ---
Author Organization [facility] Address [address] [place] [address] Care Team Providers Care Dining Service Supervisor Name Role Phone Carrington Calderon MD Primary Care Provi anders Carmelo Hendrickson Unavailable Unavailable Abigail Díaz Unavailable [phone] Encounter Details Date Type Department Care Team (Late st Contact Info) Description 01/06/2024 Lab Requisition [facility] Pathology & Laboratory Medicine - [facility] [address] [place] [address] Outr Resulting Lab, Provider Social History Tobacco Use Types Packs/Day Years Used Date Smoking Tobacco: Never Assessed [facility] Utilities Answer Date Recorded In the past 12 months has [employer], gas, oil, or water company threatened to [...] 275 - 295 mOsm/kg 01/06/2024 17:33 EDT [facility] Blood VENOUS BLOOD / Unknown 01/06/2024 11:15 EDT 01/06/2024 17:04 EDT us Provider Outr Resulting Lab CHEMISTRY & BLOOD GA S ORDERABLES Final Result [facility] [address] [place] [address] documented in this encounter Visit Diagnoses Not on filedocumented in this encounter Care Teams Dining Service Supervisor Relationship Specialty Start Date End Date Carrington Calderon MD 1 [facility] Level [address] [place] [address] PCP - General Internal Medicine - Primary Care 12/09/20 Carmelo Hendrickson Coordinator 12/01/23 Abigail Díaz Feed Mill Manager 01/04/24 documented as of this encounter
--- OUTSIDE RECORDS SUMMARY | 2024-05-31 07:24 | XMS_ITS | Encounter Summary ---
Author Organization [facility] Address [address] [place] [address] Care Team Providers Care Mortar Carrier Name Role Phone Carrington Calderon MD Primary Care Provi anders Abigail Díaz Unavailable Carmelo Hendrickson Unavailable Unavailable Encounter Details Date Type Department Care Team (Late st Contact Info) Description 12/09/2023 Orders Only [facility] Radiology - Main [place] [address] [place], [place] [phone] Teresita Fitzpatrick MD [address] [place] [address] Social History Tobacco Use Types Packs/Day Years Used Date Smoking Tobacco: Every Day Cigarettes 0.5 13.6 Started: 11/10/2010 Smokeless Tobacco: Never Comments:06/13/20 actively try ing to quit about 5-8 cigs/day Alcohol Use Standard Drinks/Week Comments Yes 0 (1 standard drink = 0.6 oz pur e alcohol) rarely C Utilities Answer Date Recorded In the past 12 months has [employer], gas, oil, or water company threatened to [...] on filedocumented in this encounter Care Teams Mortar Carrier Relationship Specialty Start Date End Date Carrington Calderon MD 1 [facility] Level 1 [place] [address] PCP - General Internal Medicine - Primary Care 12/09/20 Abigail Díaz Planning Supervisor 04/21/23 01/03/24 Carmelo Hendrickson Coordinator 12/01/23 documented as of this encounter
--- OUTSIDE RECORDS SUMMARY | 2024-05-31 07:24 | XMS_ITS | Encounter Summary ---
Author Organization [facility] Address [address] [place] [address] Care Team Providers Care Staffing Account Manager Name Role Phone Carrington Calderon MD Primary Care Provi anders Abigail Díaz Unavailable [phone] Reason for Visit * Reason Comments Follow-up Gastroparesis / 6 Mo [facility] Follow-Up * Consult (Routine) - Receiving Office to Obtain Authorization Specialty Diagnoses / Procedures Referred By Kit goode Referred To Contact Diagnoses Gastroparesis Dale Collier MD [address] [place] [address] [place] [address] Phone: tel: fax: [facility] [address] [address] Phone: tel: fax: Referral ID Status Reason Start Date Expiration Date Visits Requested Visits Authorized [id number] Receiving Office to Obtain Authorization Specialty Services Required 1 1 Encounter Details Date Type Department Care Team (Late st Contact Info) Description 11/16/2023 11:00 EDT Telemedicine [facility] - [address] [id number] Scott Arzate MD [address] [place] [address], [address] [place] [phone] Cyclic vomiting syndrome (Primary Dx) Social History [...] oz pur e alcohol) rarely [facility] Asset Marketing Servicesities Answer Date Recorded In the past 12 months has th e [employer] gas, oil, or water [employer] threatened to shut off services in your [...] lives) Patient location state: Visit Location State: [place] The location of the provider: Office Provider location state: Visit Location State: [place] The following people and their roles [...] vomiting documented in this encounter Care Teams Staffing Account Manager Relationship Specialty Start Date End Date Carrington Calderon MD 1 [facility] 1 [place] [phone] PCP - General Internal Medicine - Primary Care 12/09/20 Abigail Díaz Snagger 04/21/23 01/03/24 documented as of this encounter
--- OUTSIDE RECORDS SUMMARY | 2024-05-31 07:24 | XMS_ITS | Encounter Summary ---
Author Organization [facility] Address [address] [place] [address] Care Team Providers Care Fish Net Maker Name Role Phone Carrington Calderon MD Primary Care Provi anders Abigail Díaz Unavailable Carmelo Hendrickson Unavailable Unavailable Reason for Visit * Reason Comments Pre-op Exam Encounter Details Date Type Department Care Team (Late st Contact Info) Description 12/01/2023 15:45 EDT Office Visit [facility] Adult Primary Care - [place] [address] [place] [address] Nimisha Clifton NP 1 [facility] Level 1 [place] [address] Neuropathic diabetic ulcer of foot [...] Recorded In the past 12 months has [employer], gas, oil, or water company threatened [...] exam. Has been followed closely by her security vehicle patrol officer for ongoing foot infection, the plan [...] current use of insulin (HCC-CMS) ([facility]) ??? Gastroparesis ??? Neuropathic diabetic ulcer of [...] has a referral for therapy. ??? Diabetes ([facility]) A1c 10.3 on 11/28/2019 - poorly controlled ??? Diabetes mellitus, type 2 ([facility]) pt check blood sugars at home- X [...] Neuropathic diabetic ulcer of foot ([facility]) 09/17/2021 ??? Obesity, unspecified ??? Osteomyelitis ([facility]) of left great toe-s/p amputation [...] Neuropathic diabetic ulcer of foot ([facility])- Primary Type II or unspecified type diabetes mellitus with other specified manifestations, not stated as uncontrolled Pre-op exam Preoperative examination, unspecified documented in this encounter Care Teams Fish Net Maker Relationship Specialty Start Date End Date Carrington Calderon MD 1 [facility] 1 [place] [address] PCP - General Internal Medicine - Primary Care 12/09/20 Abigail Díaz Lard Renderer 04/21/23 01/03/24 Carmelo Hendrickson Coordinator 12/01/23 documented as of this encounter
--- OUTSIDE RECORDS SUMMARY | 2024-05-31 07:24 | XMS_ITS | Encounter Summary ---
Author Organization [facility] Address [address] [place] [address] Care Team Providers Care School Aide Name Role Phone Carrington Calderon MD Primary Care Provi anders Abigail Díaz Unavailable [phone] Reason for Visit * Reason Comments Consult * Consult (Routine/Next Available) - Specialty Report Received Specialty Diagnoses / Procedures Referred By Kit goode Referred To Contact Obstetrics & Gynecology Diagnoses IUD contraception Carrington Calderon MD Phone: tel: fax: [facility] [address] [address] Phone: tel: fax: Referral ID Status Reason Start Date Expiration Date Visits Requested Visits Authorized [id number] Specialty Report Received Specialty Services Required 3 1 1 Encounter Details Date Type Department Care Team (Late st Contact Info) Description 08/05/2023 13:00 EST Initial consult [facility] [address] [address] Kamini Vega MD 111 [facility], Level [address] [place] [phone] Encounter for IUD insertion (Primary Dx); Gastroparesis [...] a group home (including now)? No 06/14/2023 Interpersonal Safety [...] pt has a referral for therapy. Diabetes ([facility]) A1c 10.3 on 11/28/2019 - poorly controlled Diabetes mellitus, type 2 ([facility]) pt check blood sugars at [...] vomiting occasionally Neuropathic diabetic ulcer of foot ([facility]) 09/17/2021 Obesity, unspecified Osteomyelitis ([facility]) of left great toe-s/p amputation [...] withdrawn slightly and arms deployed as per harvest worker fruit specifications. Applicator removed Strings trimmed to 3 [...] at 1345, Until Tue08/03/30 at 1344, Per [facility] P &T Committee, use is restricted to outpatient clinics and the OR. LARC approved for inpatient use includes Mirena, Nexplanon, and Paragard only for patients covered by [facility] Routine IUD Insertion 08/05/2023 13:18 EST 1 Each documented in this encounter Orders Medications Ordered That Stan ht Not Have Been Administered Count Last Ordered Date First Ordered Date levonorgestreL (MIRENA) 21 m cg/24 hours (8 yrs) 52 mg IUD 1 Each 1 08/05/2023 documented in this encounter Care Teams School Aide Relationship Specialty Start Date End Date Carrington Calderon MD [address] [facility] [place] 1 [place] [phone] PCP - General Internal Medicine - Primary Care 12/09/20 Abigail Díaz Manager Control 04/21/23 01/03/24 documented as of this encounter
--- OUTSIDE RECORDS SUMMARY | 2024-05-31 07:24 | XMS_ITS | Encounter Summary ---
Author Organization [facility] Address [address] [place] [address] Care Team Providers Care Plant Maintenance Technician Name Role Phone Carrington Calderon MD Primary Care Provi anders Amrita Asencio Unavailable Carmelo Hendrickson Unavailable Unavailable Amrita Asencio Unavailable [phone] Encounter Details Date Type Department Care Team (Late st Contact Info) Description 12/29/2023 Patient Outreach [facility] Adult Primary Care - [address] [phone] Amrita Asencio Social History Tobacco Use Types Packs/Day Years Used Date Smoking Tobacco: Every Day Cigarettes 0.5 13.6 Started: 11/10/2010 Smokeless Tobacco: Never Comments:06/13/20 actively try ing to quit about 5-8 cigs/day Alcohol Use Standard Drinks/Week Comments Yes 0 (1 standard drink = 0.6 oz pur e alcohol) rarely [facility] Utilities Answer Date Recorded In the past 12 months has [employer], gas, oil, or water company threatened to [...] time in the past 12 [facility], were you homeless or living in [...] living situation today? I have a [facility] place to live 04/03/2024 Think about [...] Progress Notes * Amrita Asencio - 12/29/2023 9039 EDT [facility] Integrated Care Management Care Coordination Note Retention Representative spoke with patient on text in order to coordinate care. -Patient reports that she doesn't need anything at this time and asked to rescheduled another time -[facility] suggested 3- 6 months outreach AMRITA ASENCIO 04/23/2024 9:55 documented in this encounter Plan of Treatment Not on file documented as of this encounter Visit Diagnoses Not on filedocumented in this encounter Care Teams Plant Maintenance Technician Relationship Specialty Start Date End Date Carrington Calderon MD 1 [facility] 1 [place] [phone] PCP - General Internal Medicine - Primary Care 12/09/20 Amrita Asencio Retention Representative 04/21/23 01/03/24 Carmelo Hendrickson Coordinator 12/01/23 Amrita Asencio Retention Representative 01/04/24 documented as of this encounter
--- OUTSIDE RECORDS SUMMARY | 2024-05-31 07:24 | XMS_ITS | Encounter Summary ---
Author Organization [facility] Address [address] [place] [address] Care Team Providers Care Truck Driver Flatbed Name Role Phone Carrington Calderon MD Primary Care Provi anders Abigail Díaz Unavailable Carmelo Hendrickson Unavailable Unavailable Abigail Díaz Unavailable [phone] Reason for Referral * Radiology Services (Routine/Next Available) - Authorization Not Required Specialty Diagnoses / Procedures [facility] Referred To Contact Nuclear Medicine Diagnoses Subclinical hyperthyroidism Procedures NM THYROID UPTAKE AND SCAN [place] IODINE I-123 SOD IODIDE EMILY Carrington Calderon MD [address] [place] [phone] Phone: tel: fax: [facility] Referral ID Status Reason Start Date Expiration Date Visits Requested Visits Authorized [id number] Authorization Not Required 12/06/2023 1 1 Reason for Visit * Reason Onset Date Comments Results 11/22/2023 Encounter Details Date Type Department Care Team (Late st Contact Info) Description 11/22/2023 Telephone [facility] Adult Primary Care - [address] [address] Carrington Calderon MD [address] [address] Results Social History Tobacco Use Types Packs/Day Years Used Date Smoking Tobacco: Every Day Cigarettes 0.5 13.6 Started: 11/10/2010 Smokeless Tobacco: Never Comments:06/13/20 actively try ing to quit about 5-8 cigs/day Alcohol Use Standard Drinks/Week Comments Yes 0 (1 standard drink = 0.6 oz pur e alcohol) rarely [facility] Utilities Answer Date Recorded In the past 12 months has th e [employer], [employer], oil, or water [email or web address] threatened to shut off services in your [...] any time in the past 12 m [facility], were you homeless or living [...] storm documented in this encounter Care Teams Truck Driver Flatbed Relationship Specialty Start Date End Date Carrington Calderon MD 1 [facility] 1 [place] [address] PCP - General Internal Medicine - Primary Care 12/09/20 Abigail Díaz Records Management Technician 04/21/23 01/03/24 Carmelo Hendrickson Coordinator 12/01/23 Abigail Díaz Records Management Technician 01/04/24 documented as of this encounter
--- OUTSIDE RECORDS SUMMARY | 2024-05-31 07:24 | XMS_ITS | Encounter Summary ---
Author Organization [facility] Address [address] [place] [address] Care Team Providers Care Radio Operator Name Role Phone Carrington Calderon MD Primary Care Provi anders NelsyClayAbigail Unavailable Encounter Details Date Type Department Care Team (Late st Contact Info) Description 11/11/2023 13:30 EDT Phlebotomy Only [facility] Services - [address] [address] Yacht Builder, [facility] Lab Abnormal thyroid blood test; Encounter [...] Recorded In the past 12 months has [employer], gas, oil, or water [employer] threatened to shut off services in your [...] time in the past 12 m [facility], were you homeless or living in [...] 97 - 169 ng/dL 11/11/2023 17:27 EDT [facility] Blood VENOUS BLOOD / Unknown Venipuncture / Unknown 11/11/2023 13:53 EDT 11/11/2023 13:55 EDT us Carrington Calderon MD CHEMISTRY & BLOOD G ORDERABLES Final Result [facility] [address] [place] [address] * T4 FREE (11/11/2023 13:53 EDT) [facility] T4, Free 1.1 0.8 - 2.2 ng/dL 11/11/2023 16:08 EDT [facility] Blood VENOUS BLOOD / Unknown Venipuncture / Unknown 11/11/2023 13:53 EDT 11/11/2023 13:55 EDT Carrington Calderon MD CHEMISTRY & BLOOD G ORDERABLES Final Result Performing Organization Address [facility] Co de Phone Number [facility] [address] [place] [phone] * HIV 1/2 ANTIGEN AND ANTIBODY, 4TH GENERATION (11/11/2023 13:53 EDT) [facility] HIV 1 and 2 Antibody/p24 Antigen, 4th Generation Negative Negative 11/11/2023 17:04 EDT [facility] Comment:If acute HIV-1 infec tion is suspected in a high risk patient, submit plasma specimen for HIV-1 RNA quantitation test. Blood VENOUS BLOOD / Unknown Venipuncture / Unknown 11/11/2023 13:53 EDT 11/11/2023 13:55 EDT Narrative [facility] - 11/11/2023 17:04 EDT Fourth Generation assay performed on the Siemens Centaur XPT. Carrington Calderon MD IMMUNOLOGY AND SERO LOGY ORDERABLES Final Result Performing Organization Address City/[facility]/ZIP Co de Phone Number [facility] [address] [place] [phone] * HEPATITIS C AB W REFLEX TO HCV RNA BY PCR (11/11/2023 13:53 EDT) [facility] Hep C Antibody Negative Negative 11/11/2023 17:03 EDT [facility] Blood VENOUS BLOOD / Unknown Venipuncture / Unknown 11/11/2023 13:53 EDT 11/11/2023 13:55 EDT Carrington Calderon MD CHEMISTRY & BLOOD G ORDERABLES Final Result Performing Organization Address [facility] Co de Phone Number [facility] [address] [place] [address] * HEPATITIS B PROFILE (11/11/2023 13:53 EDT) Hep B Surface Ag Negative Negative 11/11/19 17:04 EDT [facility] Hep B Surface Ab, Quantitative <3.1 See Note mIU/mL 11/11/2023 17:04 EDT [facility] Comment: Reference Range for Hep B Surface Ab, Quant: Positive: >= 10.0 mIU/mL Negative: ??< 10.0 mIU/mL Patient is presumed to not be immune to infection with Hepatitis B Virus. Hep B Surface Ab, Qualitative Negative See Note 11/11/2023 17:04 EDT [facility] Comment: Reference Range for Hep B Surface Ab, Qual: Unvaccinated: ??Negative Vaccinated: ??Positive Hepatitis B Core Ab, Total Negative Negative 11/11/2023 17:04 EDT [facility] Blood VENOUS BLOOD / Unknown Venipuncture / Unknown 11/11/2023 13:53 EDT 11/11/2023 13:55 EDT Carrington Calderon MD CHEMISTRY & BLOOD G ORDERABLES Final Result Performing Organization Address City/[facility]/ZIP Co de Phone Number [facility] [address] [place] [address] * (ABNORMAL) THYROID CASCADE (11/11/2023 13:53 EDT) TSH 0.37(L) 0.47 - 4.68 mIU/L 11/11/2023 15:38 EDT [facility] Blood VENOUS BLOOD / Unknown Venipuncture / Unknown 11/11/2023 13:53 EDT 11/11/2023 13:55 EDT Narrative [facility] - 11/11/2023 15:38 EDT NOTE: The results of this assay can be falsely lowered due to the consumption of Biotin. Carrington Calderon MD CHEMISTRY & BLOOD G ORDERABLES Final Result [facility] [address] [place], [place] [phone] documented in this encounter Visit Diagnoses Diagnosis Abnormal thyroid blood test Nonspecific abnormal results of thyroid function study Encounter for screening for other viral diseases documented in this encounter Care Teams Radio Operator Relationship Specialty Start Date End Date Carrington Calderon MD 1 [facility] 1 [place] [phone] PCP - General Internal Medicine - Primary Care 12/09/20 Abigail Díaz Mill Washer 04/21/23 01/03/24 documented as of this encounter
--- OUTSIDE RECORDS SUMMARY | 2024-05-31 07:24 | XMS_ITS | Encounter Summary ---
Author Organization [facility] Address [address] [place] [address] Care Team Providers Care Mother Repairer Name Role Phone Carly Calderon MD Primary Care Provi anders Abigail Díaz Unavailable [phone] Reason for Referral * Consult (Routine/Next Available) - Closed Specialty Diagnoses / Procedures Referred By Kit goode Referred To Contact Sleep Medicine Diagnoses Primary insomnia Carly Calderon MD Phone: tel: fax: [facility] - [address] [address] Phone: tel: fax: Referral ID Status Reason Start Date Expiration Date V isits Requested Visits Authorized [id number] Closed Specialty Services Required 06/27/2023 1 1 Question Answer Reason for referral Diffifulty initiating sleep, Difficulty maintaining sleep Patient Type: Adult * Consult (Routine/Next Available) - Specialty Report Received Specialty Diagnoses / Procedures Referred By Kit goode Referred To Contact Hematology Diagnoses Night sweats Lymphocytosis Carly Calderon MD Phone: tel: fax: [facility] Hematology & Oncology - Main [address] [address] Phone: tel: fax: Referral ID Status Reason Start Date Expiration Date Visits Requested Visits Authorized [id number] Specialty Report Received Specialty Services Required 06/27/2023 1 1 Question Answer Reason for Request: night sweats Reason for Visit * Reason Comments Annual Exam Gynecologic Exam Encounter Details Date Type Department Care Team (Late st Contact Info) Description 06/27/2023 14:45 EST Office Visit [facility] Adult Primary Care - [address] [address] Carly Calderon MD 1 [facility] Level 1 [place] [address] Cyclic vomiting syndrome (Primary Dx); [...] polyneuropathy associated with type 2 diabetes mellitus ([facility]) Take 1 Capsule by mouth [...] current use of insulin ([facility]) Take 1 Tablet by mouth daily. 90 Tablet 4 06/27/2023 insulin glargine (LANTUS SOLOSTAR/SEMGLEE) 100 unit/mL (3 mL) injection penIndications:Type 2 diabetes mellitus with diabetic polyneuropathy, with long-term current use of insulin ([facility]) Inject 44 Units into the skin at bedtime. 36 mL 4 06/27/2023 ondansetron (ZOFRAN-ODT) 4 mg disintegrating tabletIndications:Cy clic vomiting syndrome Take 1 Tablet by mouth every 8 hours as needed for Nausea. 30 Tablet 11 06/27/2023 SUMAtriptan (IMITREX) 20 mg/actuation nasal spray Instill 1 Ingram into right nostril as needed for Migraine. 6 Each 1 06/27/2023 4 empagliflozin (JARDIANCE) 25 mg tabletIndications:Ty pe 2 diabetes mellitus with diabetic polyneuropathy, with long-term current use of insulin ([facility]) Take 1 Tablet by mouth daily. 90 Tablet 4 06/27/2023 4 HUMALOG KWIKPEN INSULIN 100 unit/mL injectable penIndications:Type 2 diabetes mellitus with diabetic polyneuropathy, with long-term current use of insulin ([facility]) 8 units with breakfast, 12 units with [...] Notes * Carly Calderon MD - 06/27/2023 7645 EST Images from the original note were [...] of insulin ([facility]): CGM data reviewed in detail today. GMI [...] polyneuropathy associated with type 2 diabetes mellitus ([facility]): We discussed considering an increase in her [...] Luis Wilson present during the exam as user support analyst supervisor and academic affairs assistant. - PAP TEST Candidal intertrigo: Rash [...] tried this. She continues to take Reglan dpmjat-yea-pbgfy and both during and her episodes of [...] Risk types, PCR Negative Negative 07/13/2023 16:25 [facility] Comment:No E6 or E7 mRNA is detected from HPV types 16,18,31,33,35,39,45,51,52,56,58,59,66, and 68 by liquor runner mediated amplification. Pap Test CERVIX UTERI STRUCTURE / Unknown 06/27/2023 16:00 EST 07/11/2023 13:44 EST Carly Calderon MD MICROBIOLOGY - GENE RAL ORDERABLES Final Result [facility] [address] [place] [id number] * PAP TEST (06/27/2023 16:00 EST) Specimens A. Cervix and/or Endocervix , ThinPrep Imaging System with Manual Evaluation 07/13/2023 16:25 [facility] Specimen Adequacy Satisfactory for Evaluation - transformation zone component absent 07/13/2023 16:25 [facility] General Categorization Negative for intraepithelial lesion or malignancy 07/13/2023 16:25 [facility] Attestation . 07/13/2023 16:25 [facility] at 1625 Clinical History screening 07/13/19 24 16:25 [facility] HPV The result for the Human Papillomavirus (HPV) Detection-High Risk Types is Negative. No E6 or E7 mRNA is detected from HPV types 16,18,31,33,35,39 ,45,51,52,56,58,5 9,66, and 68 by liquor runner mediated amplification.Lorena ting was performed on specimen [id number] and was resulted on 07/13/2023 1625 EST by JANET, LAB INSTRUMENT RESULTS IN 07/13/2023 16:25 EST [facility] Performing Lab [facility] 07/13/2023 16:25 EST [facility] Scanned Images 07/13/2023 16:25 EST [facility] Pap Test CERVIX UTERI STRUCTURE / Unknown 06/27/2023 16:00 EST 06/27/2023 16:00 EST us Carly Calderon MD PATHOLOGY ORDERABLE S Final Result [facility] [address] [place] [address] documented in this encounter Visit Diagnoses Diagnosis Cyclic vomiting syndrome- Primary Persistent vomiting Anxiety Anxiety state, unspecified Chronic midline low back pain without sciatica Type 2 diabetes mellitus with diabetic polyneuropathy, with long-term current use of insulin ([facility]) Primary insomnia Persistent disorder of [...] Reorder 11/17/2022 06/27/2023 traMADol (ULTRAM) 50 mg tabletIndications:Logging Tractor Operator gordo midline low back pain without [...] current use of insulin ([facility]) One Touch Verio Flex meter. 12/21/2021 06/27/2023 empagliflozin (JARDIANCE ORAL) Take by mouth. 06/27/2023 SEMGLEE,INSULIN GLARG-YFGN,PEN 100 unit/mL (3 mL) insulin pen INJECT 40 UNITS SUBCUTANEOUSLY AT BEDTIME 04/01/2023 06/27/2023 SITagliptin phosphate (JANUVIA) 100 mg tabletIndications:Type 2 diabetes mellitus with diabetic polyneuropathy, with long-term current use of insulin ([facility]) Take 1 Tablet by mouth daily. Reorder 11/17/2022 06/27/2023 insulin glargine (LANTUS SOLOSTAR/SEMGLEE) 100 unit/mL (3 mL) injection penIndications:Type 2 diabetes mellitus with diabetic polyneuropathy, with long-term current use of insulin ([facility]) Inject 40 Units into the skin at bedtime. Reorder 11/17/2022 06/27/2023 HUMALOG KWIKPEN INSULIN 100 unit/mL injectable penIndications:Type 2 diabetes mellitus with diabetic polyneuropathy, with long-term current use of insulin ([facility]) Inject 12 Units into the skin 3 times daily with meals. Reorder 04/04/2023 06/27/2023 SUMAtriptan (IMITREX) 20 mg/actuation nasal spray Instill 1 Ingram into right nostril as needed for Migraine. Reorder 05/13/2023 06/27/2023 metoclopramide HCl (REGLAN) 10 mg tablet Take 1 Tablet by mouth 3 times daily before meals. Reorder 03/02/2022 06/27/2023 gabapentin (NEURONTIN) 300 mg capsuleIndications:Charo betic polyneuropathy associated with type 2 diabetes mellitus ([facility]) Take 1 Capsule by mouth every morning AND 3 Capsules at bedtime. Reorder 11/17/2022 06/27/2023 documented as of this encounter Care Teams Mother Repairer Relationship Specialty Start Date End Date Carly Calderon MD 1 [facility] 1 [place] [phone] PCP - General Internal Medicine - Primary Care 12/09/20 Abigail Díaz Roll Scale Man 04/21/23 01/03/24 documented as of this encounter
--- OUTSIDE RECORDS SUMMARY | 2024-05-31 07:24 | XMS_ITS | Encounter Summary ---
Author Organization [facility] Address [address] [place] [address] Care Team Providers Care Firmware Architect Name Role Phone Carrington Calderon MD Primary Care Provi anders Abigail Díaz Unavailable Reason for Visit * Reason Comments Med Change Request Encounter Details Date Type Department Care Team (Late st Contact Info) Description 06/27/2023 [facility] Adult Primary Care - [address] [address] Carrington Calderon MD [address] [address] Med Change Request Social History [...] in a halfway (including now)? No 06/14/2023 Interpersonal Safety Answer [...] 1331 EST Medication(s) Requested: sumatriptan [facility] Is patient out of medication? No Last Refill Date: 06/27/23 Refills available at pharmacy for requested medication. Request denied. SIERRA JIM RN 06/28/2023 13:31 documented in this encounter Plan of Treatment Not on file documented as of this encounter Visit Diagnoses Not on filedocumented in this encounter Care Teams Firmware Architect Relationship Specialty Start Date End Date Carrington Calderon MD 1 [facility] Level 1 [place] [address] PCP - General Internal Medicine - Primary Care 12/09/20 Abigail Díaz Comfort Filler 04/21/23 01/03/24 documented as of this encounter
--- OUTSIDE RECORDS SUMMARY | 2024-05-31 07:24 | XMS_ITS | Encounter Summary ---
Author Organization [facility] Address [address] [place] [address] Care Team Providers Care Replanting Machine Operator Name Role Phone Carrington Calderon MD Primary Care Provi anders Abgiail Díaz Unavailable Reason for Visit * Reason Onset Date Comments Results 07/25/2023 XRAY right ankle Encounter Details Date Type Department Care Team (Late st Contact Info) Description 07/25/2023 Telephone [facility] Adult Primary Care - [address] [address] Carrington Calderon MD 1 [facility] Level [address] [place] [phone] Results (XRAY right ankle) Social History [...] a senior care (including now)? No 06/14/2023 Interpersonal Safety Answer [...] on filedocumented in this encounter Care Teams Replanting Machine Operator Relationship Specialty Start Date End Date Carrington Calderon MD 1 [facility] 1 [place] [address] PCP - General Internal Medicine - Primary Care 12/09/20 Abigail Díaz Apparatus Repair Mechanic 04/21/23 01/03/24 documented as of this encounter
--- OUTSIDE RECORDS SUMMARY | 2024-05-31 07:24 | XMS_ITS | Encounter Summary ---
Author Organization [facility] Address [address] [place] [address] Care Team Providers Care Weight Clerk Name Role Phone Carrington Calderon MD Primary Care Provi anders BreAbigail Unavailable [phone] Reason for Referral * Radiology Services (Routine/Next Available) - Authorization Not Required Specialty Diagnoses / Procedures Referred By Contac t Referred To Contact Diagnoses Pain in right ankle and joints of right foot Procedures XR ANKLE RIGHT 3 OR MORE VIEWS Kylah Vázquez PA [address] [place] [phone] Phone: tel: fax: [facility] Referral ID Status Reason Start Date Expiration Date Visits Requested Visits Authorized [id number] Authorization Not Required 07/25/2023 1 1 Reason for Visit * Radiology Services (Routine/Next Available) - Authorization Not Required Specialty Diagnoses / Procedures Referred By Contac t Referred To Contact Diagnoses Pain in right ankle and joints of right foot Procedures XR ANKLE RIGHT 3 OR MORE VIEWS Kylah Vázquez PA [address] [place] [phone] Phone: tel: fax: [facility] Referral ID Status Reason Start Date Expiration Date Visits Requested Visits Authorized [id number] Authorization Not Required 07/25/2023 1 1 Encounter Details Date Type Department Care Team (Latest Contact Info) Description 07/25/2023 13:24 EST - 07/25/2023 23:59 EST Hospital [facility] Radiology Xray Outpatient - [place] [phone] Pain in right ankle and joints of [...] of insulin ([facility]) Inject 1 Each into the skin every 10 days. 9 Each 4 3 Blood-Glucose Transmitter (DEXCOM G6 TRANSMITTER) deviceIndications:T ype 2 diabetes mellitus with diabetic polyneuropathy, with long-term current use of insulin ([facility]) Inject 1 Each into the skin every 3 months. 1 Each 4 4 gabapentin (NEURONTIN) 300 mg capsuleIndications: Diabetic polyneuropathy associated with type 2 diabetes mellitus ([facility]) Take 1 Capsule by mouth every morning AND 4 Capsules at bedtime. 450 Capsule 4 4 insulin glargine (LANTUS SOLOSTAR/SEMGLEE) 100 unit/mL (3 mL) injection penIndications:Type 2 diabetes mellitus with diabetic polyneuropathy, with long-term current use of insulin ([facility]) Inject 44 Units into the skin [...] polyneuropathy, with long-term current use of insulin ([facility]) Take 1 Tablet by mouth daily. [...] polyneuropathy, with long-term current use of insulin ([facility]) Take 1 Tablet by mouth daily. 90 Tablet 4 02/21/20 24 HUMALOG KWIKPEN INSULIN 100 unit/mL injectable penIndications:Type 2 diabetes mellitus with diabetic polyneuropathy, with long-term current use of insulin ([facility]) 8 units with breakfast, 12 units [...] on the plantar surface of the calcaneus. [id number] Narrative 07/25/2023 16:12 EST EXAM/TECHNIQUE: XR ANKLE [...] on the plantar surface of the calcaneus. [id number] us Kylah DAWSON IMG DIAGNOSTIC IMAGING ORDERABL ES Final Result documented in this encounter Visit Diagnoses Diagnosis Pain in right ankle and joints of right foot documented in this encounter Care Teams Weight Clerk Relationship Specialty Start Date End Date Carrington Calderon MD 1 [facility] 1 [place] [phone] PCP - General Internal Medicine - Primary Care 12/09/20 Abigail Díaz Psychological Anthropologist 04/21/23 01/03/24 documented as of this encounter
--- OUTSIDE RECORDS SUMMARY | 2024-05-31 07:24 | XMS_ITS | Encounter Summary ---
Author Organization [facility] Address [address] [place] [address] Care Team Providers Care Manager Creative Name Role Phone Carrington Calderon MD Primary Care Provi anders Carmelo Hendrickson Unavailable Unavailable Abigail Díaz Unavailable Reason for Visit * Reason Onset Date Comments Medication Management 01/06/2024 Encounter Details Date Type Department Care Team (Late st Contact Info) Description 01/06/2024 Telephone [facility] Adult Primary Care - [address] [address] Carrington Calderon MD 1 [facility] Level [address] [place] [phone] Medication Management Social History Tobacco Use Types Packs/Day Years Used Date Smoking Tobacco: Every Day Cigarettes 0.5 13.6 Started: 11/10/2010 Smokeless Tobacco: Never Comments:06/13/20 actively try ing to quit about 5-8 cigs/day Alcohol Use Standard Drinks/Week Comments Yes 0 (1 standard drink = 0.6 oz pur e alcohol) rarely [facility] Utilities Answer Date Recorded In [...] living situation today? I have a [facility] place to live 04/03/2024 Think about [...] the past 12 months has th e [employer], gas, oil, or water company threatened to [...] of insulin ([facility]) Brand: Freestyle, check glucose 4 times per day for insulin dose titration 100 Each 11 01/06/2024 blood glucose test stripsIndications: Type 2 diabetes mellitus with diabetic polyneuropathy, with long-term current use of insulin ([facility]) Brand: Freestyle Lite, check glucose 4 times per day for insulin dose titration 100 Each 01/06/2024 blood glucose meterIndications:T ype 2 diabetes mellitus with diabetic polyneuropathy, with long-term current use of insulin ([facility]) Brand: Freestyle Lite 1 Each 01/06/2024 documented in this encounter Miscellaneous Notes * Telephone Encounter - Carrington Calderon MD - 01/06/2024 1234 EDT Madhuri Garsia ordered. Abigail- I see it's been hard to engage her. May be worth another try, particularly to help with getting a CGM, unless you think that's more in [facility] territory. Thanks. * Telephone Encounter - [place] [...] for meter, lancets, and test strips to [facility] pharmacy in [place]. Fermin said patient is currently in the hospital now because her blood sugars have been above 400. documented in this encounter Plan of Treatment Not on file documented as of this encounter Visit Diagnoses Diagnosis Type 2 diabetes mellitus with diabetic polyneuropathy, with long-term current use of insulin ([facility]) ([facility] Primary documented in this encounter Care Teams Manager Creative Relationship Specialty Start Date End Date Carrington Calderon MD 1 [facility] Level [address] [place] [phone] PCP - General Internal Medicine - Primary Care 12/09/20 Carmelo Hendrickson Coordinator 12/01/23 Abigail Díaz Assessment Nurse Practitioner 01/04/24 documented as of this encounter
--- OUTSIDE RECORDS SUMMARY | 2024-05-31 07:24 | XMS_ITS | Encounter Summary ---
Author Organization [facility] Address [address] [place] [address] Care Team Providers Care General Matcher Name Role Phone Carrington Calderon MD Primary Care Provi anders Amrita Asencio Unavailable Carmelo Hendrickson Unavailable Unavailable Amrita Asencio Unavailable Reason for Referral * Referral (Routine/Next Available) - Authorization Not Required Specialty Diagnoses / Procedures Referred By Contac t Referred To Contact Multidisciplinary Diagnoses Encounter for screening involving social determinants of health (SDoH) Carrington Calderon MD [address] [place] [address] 1 [place] [address] Phone: tel: fax: [facility] [address], [facility] [address] [place] [address] Phone: tel: fax: Referral ID Status Reason Start Date Expiration Date Visits Requested Visits Authorized [id number] Authorization Not Required Specialty Services Required 4 1 1 Question Answer Reason for Request: apply for 3 squares and other relevant economic programs Encounter Details Date Type Department Care Team (Latest Contact Info) Description 11/15/2023 Patient Outreach [facility] Adult Primary Care [address] [address] Amrita Asencio Encounter for screening involving social determinants of health (SDoH) (Primary Dx) Social History Tobacco Use Types Packs/Day Years Used Date Smoking Tobacco: Former Cigarettes 0.5 13.6 S tarted: 11/10/2010 Smokeless Tobacco: Never Comments:06/13/20 actively try ing to quit about 5-8 cigs/day Alcohol Use Standard Drinks/Week Comments Yes 0 (1 standard drink = 0.6 oz pur e alcohol) rarely [facility] [employer] Answer Date Recorded In the past 12 months has th e [place], gas, oil, or water company threatened to [...] any time in the past 12 m [facility], were you homeless or living [...] * Amrita Asencio - 11/15/2023 1501 EDT [facility] Management Assessment and Care Plan Referral Reason: Patient was referred to [facility] to assist with completing application for disability,difficulty with maintaining work Pertinent medical and behavioral health issues: ENT Chronic left ear pain Infectious Disease Skin infection Endocrine/Metabolic Pannus, 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] (Non-Medical): No Utilities: Not At Risk (11/15/2023) [facility] Utilities Threatened with loss of utilities: No [...] - BCB* ASUNCION LUO 05/08/1986 Male Spouse [id number] 02/14/22 [id number] [address], [place] [address] Any gaps or barriers with healthcare insurance coverage: Yes, Diabetic medications [facility] recommendedpatient using [employer] or Manufactures coupons DME: [...] review SSDI checklist before next visit with [facility] 3. Patient will review Sleep Hygiene resources sent by [facility] before next visit Barriers identified to meeting goals: No barriers identified Assessment/Clinical Summary and Plan: Disability- [facility] reviewed policy and practice for Disability. Patient reports that she is confidentwith help of her family to complete the application checklist [facility] completed intake and assessment Patient reports that she would like t access 3 squares- [place] submitted to assist pt in accessing foodprogram Patient reviewed her current health needs and [facility] provided supportive counseling to pt Patient's access to their plan of care: Patient/family will access electronically through [employer] Private CM will follow-up in one month AMRITA ASENCIO 11/15/2023 15:19 documented in this encounter Plan of Treatment Scheduled Referrals Name Type Priority Associated Diagnoses Order Schedule AMB CONS/FOLLOW UP OUTPATIENT CARE MANAGEMENT - [facility] Outpatient Referral Routine Consult Encounter for screening involving social determinants of health (SDoH) Expected: 11/22/2023 (Approximate), Expires: 11/14/2024 documented as of this encounter Visit Diagnoses Diagnosis Encounter for screening involving social determinants of health (SDoH)- Primary documented in this encounter Care Teams General Matcher Relationship Specialty Start Date End Date Carrington Calderon MD 1 [facility] 1 [place] [address] PCP - General Internal Medicine - Primary Care 12/09/20 Amrita Asencio Payroll Examiner 04/21/23 01/03/24 Carmelo Hendrickson Coordinator 12/01/23 Amrita Asencio Payroll Examiner 01/04/24 documented as of this encounter
--- OUTSIDE RECORDS SUMMARY | 2024-05-31 07:24 | XMS_ITS | Encounter Summary ---
Author Organization [facility] Address [address] [place] [address] Care Team Providers Care Single Stroke Preformer Name Role Phone Carrington Calderon MD Primary Care Provi anders Abigail Díaz Unavailable Reason for Visit * Reason Onset Date Comments Appointment Related 06/20/2023 Encounter Details Date Type Department Care Team (Late st Contact Info) Description 06/20/2023 Telephone [facility] Adult Primary Care - [address] [address] Carrington Calderon MD 1 [facility] Level 1 [place] [address] Appointment Related Social History Tobacco [...] on filedocumented in this encounter Care Teams Single Stroke Preformer Relationship Specialty Start Date End Date Carrington Calderon MD 1 [facility] 1 [place] [phone] PCP - General Internal Medicine - Primary Care 12/09/20 Abigail Díaz Prison Guard Supervisor 04/21/23 01/03/24 documented as of this encounter
--- OUTSIDE RECORDS SUMMARY | 2024-05-31 07:24 | XMS_ITS | Encounter Summary ---
Author Organization [facility] Address [address] [place] [address] Care Team Providers Care Cryptography Teacher Name Role Phone Carrington Calderon MD Primary Care Provi anders Abigail Díaz Unavailable [phone] Reason for Visit * Reason Comments New Patient Visit * Consult (Routine/Next Available) - Specialty Report Received Specialty Diagnoses / Procedures Referred By Kit goode Referred To Contact Hematology Diagnoses Night sweats Lymphocytosis Carrington Calderon MD Phone: tel: fax: [facility] Hematology & Oncology [address] [address] Phone: tel: fax: Referral ID Status Reason Start Date Expiration Date Visits Requested Visits Authorized [id number] Specialty Report Received Specialty Services Required 06/27/2023 1 1 Encounter Details Date Type Department Care Team (Late st Contact Info) Description 08/05/2023 11:00 EST Office Visit [facility] Hematology & Oncology [address] [phone] Josh Clayton MD 111 [facility] 2 [place] [phone] Bandemia (Primary Dx) Social History Tobacco Use [...] results, and documentation. 08/05/2023 Josh Clayton MD Pulley Mortiser Operator, Division of Hematology / Oncology [facility] -------- NON FACE TO FACE PROLONGED SERVICES Date of related Izlu-qi-Ueib encounter 08/05/2023. Pre visit preparation performed on [...] Primary documented in this encounter Care Teams Cryptography Teacher Relationship Specialty Start Date End Date Carrington Calderon MD 1 [facility] 1 [place] [address] PCP - General Internal Medicine - Primary Care 12/09/20 Abigail Díaz Stripper Opaquer 04/21/23 01/03/24 documented as of this encounter
--- OUTSIDE RECORDS SUMMARY | 2024-05-31 07:24 | XMS_ITS | Encounter Summary ---
Author Organization [facility] Address [address] [place] [address] Care Team Providers Care Space Controller Name Role Phone Carrington Calderon MD Primary Care Provi anders Abigail Díaz Unavailable Carmelo Hendrickson Unavailable Unavailable Abigail Díaz Unavailable Encounter Details Date Type Department Care Team (Late st Contact Info) Description 12/15/2023 Patient Outreach [facility] Adult Primary Care - [address] [phone] Abigail Díaz Social History Tobacco Use Types Packs/Day Years Used Date Smoking Tobacco: Every Day Cigarettes 0.5 13.6 Started: 11/10/2010 Smokeless Tobacco: Never Comments:06/13/20 actively try ing to quit about 5-8 cigs/day Alcohol Use Standard Drinks/Week Comments Yes 0 (1 standard drink = 0.6 oz pur e alcohol) rarely [facility] Utilities Answer Date Recorded In the past 12 months has [employer], gas, oil, or water company threatened to [...] Progress Notes * Abigail Díaz - 12/15/2023 9622 EDT [facility] Beauty Sales Advisor Care Coordination Care management phone consult as scheduled, pt did not answer phone. it portfolio manager called and left voicemail requesting call back to reschedule. documented in this encounter Plan of Treatment Not on file documented as of this encounter Visit Diagnoses Not on filedocumented in this encounter Care Teams Space Controller Relationship Specialty Start Date End Date Carrington Calderon MD 1 [facility] 1 [place] [address] PCP - General Internal Medicine - Primary Care 12/09/20 Abigail Díaz Beauty Sales Advisor 04/21/23 01/03/24 Carmelo Hendrickson Coordinator 12/01/23 Abigail Díaz Beauty Sales Advisor 01/04/24 documented as of this encounter
--- OUTSIDE RECORDS SUMMARY | 2024-05-31 07:24 | XMS_ITS | Encounter Summary ---
Author Organization [facility] Address [address] [place] [address] Care Team Providers Care Flat Folder Name Role Phone Carrington Calderon MD Primary Care Provi anders Abigail Díaz Unavailable Carmelo Hendrickson Unavailable Unavailable Abigail Díaz Unavailable Reason for Visit * Reason Comments Med Change Request Encounter Details Date Type Department Care Team (Late st Contact Info) Description 06/29/2023 [facility] Adult Primary Care - [address] [address] Carrington Calderon MD 1 [facility] Level 1 [place] [phone] Med Change Request Social History Tobacco Use [...] INTO RIGHT NOSTRIL NEEDED FOR MIGRAINE HEADACHE [facility] [address] [place] [address] Confirmed Pharmacy? Yes Patient out of medication? Unknown How many pills does patient have left? unknown Last Refill Date: 06/27/23 Refills left? (explain exceptions requiring early refill) No Recent Visits Date Type Provider Dept 06/27/23 Office Visit Carrington Calderon MD [facility] Adult Prim Care 11/17/22 Office Visit Carrington Calderon MD [facility] Adult Prim Care 09/02/22 Office Visit Nimisha Clifton NP [facility] Adult Prim Care 05/20/22 Office Visit Rachel Stein PA-C [facility] Adult Prim Care Showing recent visits within past 540 days with a meds authorizing provider and meeting all other requirements Future Appointments Date Type Provider Dept 08/15/23 Appointment Carrington Calderon MD [facility] Adult Prim Care Showing future appointments within [...] (IMITREX) 20 mg/actuation nasal spray Instill 1 [place] into right nostril as needed for Migraine. 06/27/2023 06/29/2023 documented as of this encounter Care Teams Flat Folder Relationship Specialty Start Date End Date Carrington Calderon MD 1 [facility] 1 [place] [address] PCP - General Internal Medicine - Primary Care 12/09/20 Abigail Díaz Seasoner Hand 04/21/23 01/03/24 Carmelo Hendrickson Coordinator 12/01/23 Abigail Díaz Seasoner Hand 01/04/24 documented as of this encounter
--- OUTSIDE RECORDS SUMMARY | 2024-05-31 07:24 | XMS_ITS | Encounter Summary ---
Author Organization [facility] Address [address] [place] [address] Care Team Providers Care Campaign Assistant Name Role Phone Carrington Calderon MD Primary Care Provi anders Abigail Díaz Unavailable Carmelo Hendrickson Unavailable Unavailable Abigail Díaz Unavailable Reason for Visit * Reason Onset Date Comments Medications Refill 12/20/2023 Encounter Details Date Type Department Care Team (Late st Contact Info) Description 12/20/2023 Refill [facility] Adult Primary Care - [address] [phone] Carrington Calderon MD 1 [facility] Level 1 [place] [phone] Medications Refill Social History Tobacco Use Types Packs/Day Years Used Date Smoking Tobacco: Every Day Cigarettes 0.5 13.6 Started: 11/10/2010 Smokeless Tobacco: Never Comments:06/13/20 actively try ing to quit about 5-8 cigs/day Alcohol Use Standard Drinks/Week Comments Yes 0 (1 standard drink = 0.6 oz pur e alcohol) rarely [facility] Utilities Answer Date Recorded In the [...] your living situation today? I have a [facility] place to live 04/03/2024 Think about [...] Telephone Encounter - Berenice Mahan - 12/20/2023 5338 EDT Medication(s) Requested/ Last Ordered: Tramadol/ 06.27.23 Lorazepam/ 06.27.23 Preferred Pharmacy: [facility] [address] [facility], [place] - [address] [place] [address] Is patient out of medication? Yes Last [...] documented as of this encounter Care Teams Campaign Assistant Relationship Specialty Start Date End Date Carrington Calderon MD 1 [facility] 1 [place] [phone] PCP - General Internal Medicine - Primary Care 12/09/20 Abigail Díaz Perch Machine Inspector 04/21/23 01/03/24 Carmelo Hendrickson Coordinator 12/01/23 Abigail Díaz Perch Machine Inspector 01/04/24 documented as of this encounter
--- OUTSIDE RECORDS SUMMARY | 2024-05-31 07:24 | XMS_ITS | Encounter Summary ---
Author Organization [facility] Address [address] [place] [address] Care Team Providers Care Disability Specialist Name Role Phone Carrington Calderon MD Primary Care Provi anders Abigail Díaz Unavailable [phone] Carmelo Hendrickson Unavailable Unavailable Encounter Details Date Type Department Care Team (Late st Contact Info) Description 12/02/2023 Patient Outreach [facility] Adult Primary Care - [place] 1 [place], [place] [phone] Carmelo Hendrickson Social History Tobacco Use Types Packs/Day Years Used Date Smoking Tobacco: Every Day Cigarettes 0.5 13.6 Started: 11/10/2010 Smokeless Tobacco: Never Comments:06/13/20 actively try ing to quit about 5-8 cigs/day Alcohol Use Standard Drinks/Week Comments Yes 0 (1 standard drink = 0.6 oz pur e alcohol) rarely [facility] Utilities Answer Date Recorded In the past 12 months has [employer], gas, oil, or water [employer] threatened to shut off services in your [...] * Carmelo Hendrickson - 12/02/2023 1238 EDT [facility] Preparer Making Department Initial Note Referred by: Abigail Díaz [facility] PCP: Carrington Calderon Encounter type: Telephone Reason for Referral: [employer] and other economic programs Notes: This Preparer Making Department (RC) called Stella and talked to her about signing [place] for [place], as well as about health insurance. Stella reports a change in her family's employment situation and this RC walked her through how to sign up for health insurance through the [place] [employer] website given a potential special enrollment [...] on filedocumented in this encounter Care Teams Disability Specialist Relationship Specialty Start Date End Date Carrington Calderon MD 1 [facility] Level 1 [place] [address] PCP - General Internal Medicine - Primary Care 12/09/20 Abigail Díaz Management Assistant 04/21/23 01/03/24 Carmelo Hendrickson Coordinator 12/01/23 documented as of this encounter
--- OUTSIDE RECORDS SUMMARY | 2024-05-31 07:24 | XMS_ITS | Encounter Summary ---
Author Organization [facility] Address [address] [place] [address] Care Team Providers Care Audio Recording Engineer Name Role Phone Carrington Calderon MD Primary Care Provi anders Abigail Díaz Unavailable Carmelo Hendrickson Unavailable Unavailable Encounter Details Date Type Department Care Team (Late st Contact Info) Description 12/07/2023 Patient Outreach [facility] Adult Primary Care - [place] 1 [place], [place] [phone] Carmelo Hendrickson Social History Tobacco Use Types Packs/Day Years Used Date Smoking Tobacco: Every Day Cigarettes 0.5 13.6 Started: 11/10/2010 Smokeless Tobacco: Never Comments:06/13/20 actively try ing to quit about 5-8 cigs/day Alcohol Use Standard Drinks/Week Comments Yes 0 (1 standard drink = 0.6 oz pur e alcohol) rarely [facility] Utilities Answer Date Recorded In the past 12 months has [employer], gas, oil, or water [email or web address] threatened to shut off services in your [...] * Carmelo Hendrickson - 12/07/2023 0957 EDT [facility] Overlock Collar Setter Follow-up Note Encounter type: Telephone Notes: RC left a voicemail for Stella to follow up about resource coordination support. Plan / Action Items: RC will follow up in 1 week. Carmelo Hendrickson 12/07/23 9:57 documented in this encounter Plan of Treatment Not on file documented as of this encounter Visit Diagnoses Not on filedocumented in this encounter Care Teams Audio Recording Engineer Relationship Specialty Start Date End Date Carrington Calderon MD 1 [facility] 1 [place] [phone] PCP - General Internal Medicine - Primary Care 12/09/20 Abigail Díaz Manager Women 04/21/23 01/03/24 Carmelo Hendrickson Coordinator 12/01/23 documented as of this encounter
--- OUTSIDE RECORDS SUMMARY | 2024-05-31 07:24 | XMS_ITS | Encounter Summary ---
Author Organization [facility] Address [address] [place] [address] Care Team Providers Care Rotor Balancer Name Role Phone Carrington Calderon MD Primary Care Provi anders Abigail Díaz Unavailable Carmelo Hendrickson Unavailable Unavailable Encounter Details Date Type Department Care Team (Late st Contact Info) Description 12/14/2023 Patient Outreach [facility] Adult Primary Care - [place] 1 [place], [place] [phone] Carmelo Hendrickson Social History Tobacco Use Types Packs/Day Years Used Date Smoking Tobacco: Every Day Cigarettes 0.5 13.6 Started: 11/10/2010 Smokeless Tobacco: Never Comments:06/13/20 actively try ing to quit about 5-8 cigs/day Alcohol Use Standard Drinks/Week Comments Yes 0 (1 standard drink = 0.6 oz pur e alcohol) rarely C Utilities Answer Date Recorded In the past 12 months has [employer], gas, oil, or water [employer] threatened to shut off services in your [...] any time in the past 12 m [facility], were you homeless or [...] Hendrickson - 12/14/2023 1234 EDT [facility] Mechanical Assembler Follow-up Note Encounter type: Telephone Notes: RC [...] on filedocumented in this encounter Care Teams Rotor Balancer Relationship Specialty Start Date End Date Carrington Calderon MD 1 [facility] 1 [place] [address] PCP - General Internal Medicine - Primary Care 12/09/20 Abigail Díaz Track Laying Supervisor 04/21/23 01/03/24 Carmelo Hendrickson Coordinator 12/01/23 documented as of this encounter
--- OUTSIDE RECORDS SUMMARY | 2024-05-31 07:24 | XMS_ITS | Encounter Summary ---
Author Organization [facility] Address [address] [place] [address] Care Team Providers Care Director Of Market Analysis Name Role Phone Carrington Calderon MD Primary Care Provi anders Abigail Díaz Unavailable [phone] Carmelo Hendrickson Unavailable Unavailable Abigail Díaz Unavailable Encounter Details Date Type Department Care Team (Late st Contact Info) Description 01/03/2024 Lab Requisition [facility] Pathology & Laboratory Medicine - [address] [address] Madelin Ojeda MD [address] [place] [address] Encounter for other general examination Social History Tobacco Use Types Packs/Day Years Used Date Smoking Tobacco: Every Day Cigarettes 0.5 13.6 Started: 11/10/2010 Smokeless Tobacco: Never Comments:06/13/20 actively try ing to quit about 5-8 cigs/day Alcohol Use Standard Drinks/Week Comments Yes 0 (1 standard drink = 0.6 oz pur e alcohol) rarely [facility] Utilities Answer Date Recorded In the past [...] explore management options, if applicable. 01/09/2024 11:58 [facility] Final Diagnosis A. FOOT, LEFT, TRANSMETATARSAL AMPUTATION: - Skin and soft tissue with marked acute inflammation and necrosis involving the resection margin. - Underlying bone with acute osteomyelitis. - Two of five bone resection margins with extensive acute osteomyelitis (see comment). 01/09/2024 11:58 [facility] Diagnosis Comment Correlate with microbiology studies. 01/09/2024 11:58 [facility] Attestation By the signature below, the attending physician certifies that they have 1) personally conducted a gross and/or microscopic examination of the described specimen(s), and/or personally interpreted the results of laboratory testing of the described specimen(s), and 2) personally rendered or confirmed the above diagnosis. 01/09/2024 11:58 [facility] at 1158 Clinical History Diabetic foot ulcer 01/09/2024 11:58 [facility] Gross Description A. [...] aggregate 8.0 x 3.5 x 2.5 cm. Fishing Lure Assembler sections are submitted as follows: BLOCK SHIELDS A1- plantar ulcer to closest skin and soft tissue margin of resection (inked blue), perpendicular A2- bone underlying plantar ulcer, following acid decalcification A3-A4- separately received transected bone margins, en face, following acid decalcification (differentially inked) EUNICE MAE(ASCP) 01/03/2024 10:29 01/09/2024 11:58 EDT [facility] Performing Lab [facility] 11:58 EDT [facility] Scanned Images 01/09/2024 11:58 EDT [facility] Tissue TRAUMATIC AMPUTATION OF UPPER LIMB / Unknown 01/02/2024 8:23 EDT 01/03/2024 8:00 EDT us Madelin Ojeda MD PATHOLOGY ORDERABLES Final Resul t [facility] [address] [place] [address] documented in this encounter Visit Diagnoses Diagnosis Encounter for other general examination documented in this encounter Care Teams Director Of Market Analysis Relationship Specialty Start Date End Date Carrington Calderon MD 1 [facility] Level 1 [place] [phone] PCP - General Internal Medicine - Primary Care 12/09/20 Abigail Díaz Automatic Pinsetter Adjuster 04/21/23 01/03/24 Carmelo Hendrickson Coordinator 12/01/23 Abigail Díaz Automatic Pinsetter Adjuster 01/04/24 documented as of this encounter
--- OUTSIDE RECORDS SUMMARY | 2024-05-31 07:24 | XMS_ITS | Encounter Summary ---
Author Organization [facility] Address [address] [place] [address] Care Team Providers Care Cloth Worker Name Role Phone Carrington Calderon MD Primary Care Provi anders BreAbigail Unavailable [phone] Reason for Referral * Consult (Routine/Next Available) - Closed Specialty Diagnoses / Procedures Referred By Kit goode Referred To Contact Sleep Medicine Diagnoses Primary insomnia Carrington Calderon MD [address] [place] [phone] Phone: tel: fax: [facility] Sleep Program - [address] [address] Phone: tel: fax: Referral ID Status Reason Start Date Expiration Date V isits Requested Visits Authorized [id number] Closed Specialty Services Required 11/11/2023 1 1 Question Answer Reason for referral Diffifulty initiating sleep Patient Type: Adult Comments Schedule via phone, no mychart * Referral (Routine/Next Available) - Specialty Report Received Specialty Diagnoses / Procedures Referred By Kit goode Referred To Contact Multidisciplinary Diagnoses Type 2 diabetes mellitus with diabetic polyneuropathy, with long-term current use of insulin ([facility]) Cyclic vomiting syndrome Carrington Calderon MD [address] [place] [phone] Phone: tel: fax: [facility] [address] [facility], [address] [place] [address] Phone: tel: fax: Referral ID Status Reason Start Date Expiration Date Visits Requested Visits Authorized [id number] Specialty Report Received Specialty Services Required 11/11/2023 1 1 Question Answer Reason for Request: disability paperwork * Referral (Routine/Next Available) - Closed Specialty Diagnoses / Procedures Referred By Kit goode Referred To Contact Neurology Diagnoses Migraine with aura and without status migrainosus, not intractable Cyclic vomiting syndrome Carrington Calderon MD [address] [place] [address] 1 [place] [address] Phone: tel: fax: Kierra Almeida, [address] [facility], Level [address] [place] [address] Phone: tel: fax: Referral ID Status Reason Start Date Expiration Date V isits Requested Visits Authorized [id number] Closed Specialty Services Required 11/11/2023 1 1 Question Answer Reason for Request: cyclic vomiting and migraine Context of referral: Established Problem Reason for referral: Unsure Is headache attributable to an underlying condition? No Is patient actively missing work or school due to headache? Yes Is patient or lactating? No Has patient had a previous OUTSIDE of [facility] neurology evaluation, neuroimaging (MRI or CT of brain or spine) or electrodiagnostic testing (EMG, NCS, EEG)? No Reason for Visit * Reason Comments Follow-up Foot Pain Encounter Details Date Type Department Care Team (Late st Contact Info) Description 11/11/2023 13:00 EDT Office Visit [facility] [place] [address] Carrington Calderon MD 1 [facility] Level 1 [place] [address] Type 2 diabetes mellitus with diabetic polyneuropathy, with long-term current use of insulin (HCC-CMS) ([facility]) (Primary Dx); Migraine with aura and [...] Date of Assessment Author No 10/02/2020 23:50 Rvier Cavanaugh RN * Are you blind or [...] long-term current use of insulin ([facility]) 8 units with breakfast, 15 [...] long-term current use of insulin ([facility]) ([facility]) Reviewed CGM data in detail. GMI [...] CHOLESTEROL, TRIGLYCERIDES, HDL, LDL); Future - URINE BERBMEI-RP-DMVZSKMAXZ RATIO (ACR); Future 2. Migraine with aura [...] 2 diabetes mellitus, limited to breakdown ofskin ([facility]) Continue care with her genetic physician. We did not examine the foot today, [...] that she has continued to see her genetic physician in [place] every couple of weeks. She has a persistent foot ulcer on the bottom of her left foot at around the level of the first metatarsal head. She expresses frustration around the fact that this has not healed. She has beentold by her genetic physician that it would be hard or impossible [...] AMB CONS/FOLLOW UP OUTPATIENT CARE MANAGEMENT - [facility] Outpatient Referral Routine/Next Available Type 2 diabetes mellitus with diabetic polyneuropathy, with long-term current use of insulin ([facility]) (HCC) Cyclic vomiting syndrome Expected: 11/18/2023 (Approximate), Expires: 11/10/2024 BEHAVIORAL SLEEP MEDICINE CONSULTATION Outpatient Referral Routine/Next Available Primary insomnia Expected: 12/11/2023 (Approximate), Expires: 11/10/2024 documented as of this encounter Results * HIV 1/2 ANTIGEN AND ANTIBODY, 4TH GENERATION (11/11/2023 13:53 EDT) HIV 1 and 2 Antibody/p24 Antigen, 4th Generation Negative Negative 11/11/2023 17:04 EDT [facility] Comment:If acute HIV-1 infec tion is suspected in a high risk patient, submit plasma specimen for HIV-1 RNA quantitation test. Blood VENOUS BLOOD / Unknown Venipuncture / Unknown 11/11/2023 13:53 EDT 11/11/2023 13:55 EDT Narrative [facility] - 11/11/2023 17:04 EDT Fourth Generation assay performed on the HotLinkaur XPT. us Carrington Calderon MD IMMUNOLOGY AND SERO LOGY ORDERABLES Final Result [facility] [address] [place] [id number] * HEPATITIS C AB W REFLEX TO HCV RNA BY PCR (11/11/2023 13:53 EDT) Pathologist [facility] [place] Hep C Antibody Negative Negative 11/11/2023 17:03 EDT [facility] Blood VENOUS BLOOD / Unknown Venipuncture / Unknown 11/11/2023 13:53 EDT 11/11/2023 13:55 EDT Carrington Calderon MD CHEMISTRY & BLOOD G ORDERABLES Final Result [facility] [address] [place] [phone] * HEPATITIS B PROFILE (11/11/2023 13:53 EDT) Hep B Surface Ag Negative Negative 11/11/19 17:04 EDT [facility] Hep B Surface Ab, Quantitative <3.1 See Note mIU/mL 11/11/2023 17:04 EDT [facility] Comment: Reference Range for Hep B Surface Ab, Quant: Positive: >= 10.0 mIU/mL Negative: ??< 10.0 mIU/mL Patient is presumed to not be immune to infection with Hepatitis B Virus. Hep B Surface Ab, Qualitative Negative See Note 11/11/2023 17:04 EDT [facility] Comment: Reference Range for Hep B Surface Ab, Qual: Unvaccinated: ??Negative Vaccinated: ??Positive Hepatitis B Core Ab, Total Negative Negative 11/11/2023 17:04 EDT [facility] Blood VENOUS BLOOD / Unknown Venipuncture / Unknown 11/11/2023 13:53 EDT 11/11/2023 13:55 EDT Carrington Calderon MD CHEMISTRY & BLOOD G ORDERABLES Final Result Performing Organization Address [facility] Co de Phone Number [facility] [address] [place] [address] * (ABNORMAL) THYROID CASCADE (11/11/2023 13:53 EDT) TSH 0.37(L) 0.47 - 4.68 mIU/L 11/11/2023 15:38 EDT [facility] Blood VENOUS BLOOD / Unknown Venipuncture / Unknown 11/11/2023 13:53 EDT 11/11/2023 13:55 EDT Narrative [facility] - 11/11/2023 15:38 EDT NOTE: The results of this assay can be falsely lowered due to the consumption of Biotin. Carrington Calderon MD CHEMISTRY & BLOOD G ORDERABLES Final Result Performing Organization Address [facility]/ZIP Co de Phone Number [facility] [address] [place] [address] documented in this encounter Visit Diagnoses Diagnosis [...] long-term current use of insulin ([facility]) 8 units with breakfast, 12 units with lunch/dinner 06/27/2023 11/11/2023 documented as of this encounter Care Teams Cloth Worker Relationship Specialty Start Date End Date Carrington Calderon MD 1 [facility] Level [address] [place] [address] PCP - General Internal Medicine - Primary Care 12/09/20 Abigail Díaz E Commerce Specialist 04/21/23 01/03/24 documented as of this encounter
--- OUTSIDE RECORDS SUMMARY | 2024-05-31 07:24 | XMS_ITS | Encounter Summary ---
Author Organization [facility] Address [address] [place] [address] Care Team Providers Care Medicare Contact Specialist Name Role Phone Carrington Calderon MD Primary Care Provi anders Abigail Díaz Unavailable Carmelo Hendrickson Unavailable Unavailable Encounter Details Date Type Department Care Team (Late st Contact Info) Description 12/01/2023 Patient Outreach [facility] Adult Primary Care - [place] [address] [place], [place] [phone] Carmelo Hendrickson Social History Tobacco Use Types Packs/Day Years Used Date Smoking Tobacco: Every Day Cigarettes 0.5 13.6 Started: 11/10/2010 Smokeless Tobacco: Never Comments:06/13/20 actively try ing to quit about 5-8 cigs/day Alcohol Use Standard Drinks/Week Comments Yes 0 (1 standard drink = 0.6 oz pur e alcohol) rarely [facility] Utilities Answer Date Recorded In the past 12 months has [employer], gas, oil, or water [employer] threatened to shut off services in [...] * Carmelo Hendrickson - 12/01/2023 1214 EDT [facility] Produce Wrapper Initial Note Referred by: Abigail Díaz [facility] PCP: Carrington Calderon Encounter type: Telephone Reason for Referral: Help with [employer] and other economic programs Notes: This resource engineer called Stella who was driving, made plan to call back tomorrow. Plan / Action Items: DYAN will follow up on 12/02/23 after 11am. Carmelo Hendrickson 12/01/23 12:15 documented in this encounter Plan of Treatment Not on file documented as of this encounter Visit Diagnoses Not on filedocumented in this encounter Care Teams Medicare Contact Specialist Relationship Specialty Start Date End Date Carrington Calderon MD 1 [facility] 1 [place] [phone] PCP - General Internal Medicine - Primary Care 12/09/20 Abigail Díaz Furniture Sander 04/21/23 01/03/24 Carmelo Hendrickson Coordinator 12/01/23 documented as of this encounter
--- OUTSIDE RECORDS SUMMARY | 2024-05-31 07:24 | XMS_ITS | Encounter Summary ---
Author Organization [facility] Address [address] [place] [address] Care Team Providers Care Bean Dumper Name Role Phone Carrington Calderon MD Primary Care Provi anders Abigail Díaz Unavailable Carmelo Hendrickson Unavailable Unavailable Encounter Details Date Type Department Care Team (Late st Contact Info) Description 12/02/2023 Patient Outreach [facility] Adult Primary Care - [place] 1 [place], [place] [phone] Abigail Díaz Social History Tobacco Use Types Packs/Day Years Used Date Smoking Tobacco: Every Day Cigarettes 0.5 13.6 Started: 11/10/2010 Smokeless Tobacco: Never Comments:06/13/20 actively try ing to quit about 5-8 cigs/day Alcohol Use Standard Drinks/Week Comments Yes 0 (1 standard drink = 0.6 oz pur e alcohol) rarely [facility] Utilities Answer Date Recorded In the past 12 months has [employer], gas, oil, or water company threatened to [...] Abigail Díaz - 12/02/2023 0905 EDT [facility] [employer] Care Coordination Care management phone consult as scheduled, pt did not answer phone. environmental health manager called and left voicemail requesting call back to reschedule. Additional outreach planned documented in this encounter Plan of Treatment Not on file documented as of this encounter Visit Diagnoses Not on filedocumented in this encounter Care Teams Bean Dumper Relationship Specialty Start Date End Date Carrington Calderon MD 1 [facility] 1 [place] [phone] PCP - General Internal Medicine - Primary Care 12/09/20 Abigail Díaz Vp Of Product 04/21/23 01/03/24 Carmelo Hendrickson Coordinator 12/01/23 documented as of this encounter
--- OUTSIDE RECORDS SUMMARY | 2024-05-31 07:24 | XMS_ITS | Encounter Summary ---
Author Organization [facility] Address [address] [place] [address] Care Team Providers Care Explosives Worker Name Role Phone Carrington Calderon MD Primary Care Provi anders Abigail Díaz Unavailable Carmelo Hendrickson Unavailable Unavailable Reason for Referral * Consult (Routine/Next Available) - Specialty Report Received Specialty Diagnoses / Procedures [facility] Referred To Contact Obstetrics & Gynecology Diagnoses IUD contraception Carrington Calderon MD Phone: tel: fax: [facility] OBGYN Services - [address] [address] Phone: tel: fax: Referral ID Status Reason Start Date Expiration Date Visits Requested Visits Authorized [id number] Specialty Report Received Specialty Services Required 3 1 1 Question Answer Reason for Request: IUD placement Reason for Visit * Reason Onset Date Comments Referral Request 06/01/2023 Encounter Details Date Type Department Care Team (Late st Contact Info) Description 06/01/2023 Telephone [facility] Adult Primary Care - [address] [address] Carrington Calderon MD 1 [facility] 1 [place] [address] Referral Request Social History Tobacco Use Types Packs/Day Years Used Date Smoking Tobacco: Former Cigarettes 0.5 13.6 S tarted: 11/10/2010 Smokeless Tobacco: Never Comments:06/13/20 actively try ing to quit about 5-8 cigs/day Alcohol Use Standard Drinks/Week Comments Yes 0 (1 standard drink = 0.6 oz pur e alcohol) rarely [facility] Utilities Answer Date Recorded In the past 12 months has th e [employer], gas, oil, or water [employer] threatened to shut off services in [...] is calling to get a referral to RELEASE AND TECHNICAL RECORDS CLERK for a Kriss placement. documented in this encounter Plan of Treatment Scheduled Referrals Name Type Priority Associated Diagnoses Orde r Schedule AMB CONS/FOLLOW UP GYNECOLOGY Outpatient Referral Routine/Next Available IUD contraception Expected: 06/08/2023 (Approximate), Expires: 06/01/2024 documented as of this encounter Visit Diagnoses Diagnosis IUD contraception- Primary Presence of intrauterine contraceptive device documented in this encounter Care Teams Explosives Worker Relationship Specialty Start Date End Date Carrington Calderon MD 1 [facility] 1 [place] [address] PCP - General Internal Medicine - Primary Care 12/09/20 Abigail Díaz Calciner Operator 04/21/23 01/03/24 Carmelo Hendrickson Coordinator 12/01/23 documented as of this encounter
--- OUTSIDE RECORDS SUMMARY | 2024-05-31 07:24 | XMS_ITS | Encounter Summary ---
Author Organization [facility] Address [address] [place] [address] Care Team Providers Care Warp Tension Tester Name Role Phone Carrington Calderon MD Primary Care Provi anders Abigail Díaz Unavailable Reason for Visit * Reason Comments Coordination Of Care Encounter Details Date Type Department Care Team (Late st Contact Info) Description 11/18/2023 Community Health Team [facility] Adult Primary Care - [address] [phone] Care Management, [facility] Social History Tobacco Use Types Packs/Day Years Used Date Smoking Tobacco: Every Day Cigarettes 0.5 13.6 Started: 11/10/2010 Smokeless Tobacco: Never Comments:06/13/20 actively try ing to quit about 5-8 cigs/day Alcohol Use Standard Drinks/Week Comments Yes 0 (1 standard drink = 0.6 oz pur e alcohol) rarely C Utilities Answer Date Recorded In the past 12 months has [employer], gas, oil, or water [employer] threatened to shut off services in your [...] * Nery Stokes - 11/18/2023 0945 EDT [facility] Supervisor [employer] Date: 11/18/23 Referred by: Abigail Williamson PCP: Carrington Calderon Encounter type: Phone Reason for Referral: 3 [employer], Financial Notes: This Supervisor [employer] called Stella at scheduled date/time and left a voicemail offering to reschedule with direct contact information. Plan / Action Items: This Supervisor [employer] sent a MyChart message offering to reschedule. Pending reply from Stella. If no response by November 29, this Supervisor [employer] will place a call toLiz informing if no reply by 12/16/23, the referral will be closed. Assistance is available with a new referral if the referral is closed. Nery Stokes 11/18/23 9:45 documented in this encounter Plan of Treatment Not on file documented as of this encounter Visit Diagnoses Not on filedocumented in this encounter Care Teams Warp Tension Tester Relationship Specialty Start Date End Date Carrington Calderon MD 1 [facility] Level 1 [place] [address] PCP - General Internal Medicine - Primary Care 12/09/20 Abigail Díaz Assistant Project Engineer 04/21/23 01/03/24 documented as of this encounter
--- OUTSIDE RECORDS SUMMARY | 2024-05-31 07:25 | XMS_ITS | Encounter Summary ---
Author Organization [facility] Address [address] [place] [address] Care Team Providers Care Warehouse Shipping Receiving Clerk Name Role Phone Carrignton Calderon MD Primary Care Provi anders Encounter Details Date Type Department Care Team (Late st Contact Info) Description 03/17/2023 13:45 EDT Phlebotomy Only [facility] Services - [address] [address] Biologics Specialist, [facility] Night sweats; Lymphocytosis Social History [...] 16.01(H) 4.00 - 12.40 K/cmm 03/17/2023 14:47 [facility] RBC 4.25 3.86 - 5.04 M/cmm 03/17/2023 14:47 [facility] Hemoglobin 13.8 11.6 - 15.2 g/dL 03/17/2023 14:47 [facility] HCT 39.0 34.9 - 44.4 % 03/17/2023 14:47 [facility] MCV 92 81 - 98 fL 03/17/2023 14:47 [facility] MCH 32.5 26.7 - 33.3 pg 03/17/2023 14:47 [facility] MCHC 35.4 32.1 - 35.9 g/dL 03/17/2023 14:47 [facility] RDW-CV 12.7 <14.7 % 03/17/2023 14:47 [facility] RDW-SD 42.2 <50.4 fl 03/17/2023 14:47 [facility] PLT 435(H) 141 - 377 K/cmm 03/17/2023 14:47 [facility] MPV 9.5 9.5 - 12.7 fL 03/17/2023 14:47 [facility] % Neutrophils 44.3 % 03/17/2023 14:47 [facility] % Lymphocytes 44.1 % 03/17/2023 14:47 [facility] % Monocytes 7.4 % 03/17/2023 14:47 [facility] % Eosinophils 3.3 % 03/17/2023 14:47 [facility] % Basophils 0.6 % 03/17/2023 14:47 [facility] % Immature Grans 0.3 % 03/17/20 14:47 [facility] Absolute Neutrophils 7.09 2.20 - 8.85 K/cmm 03/17/2023 14:47 [facility] Absolute Lymphocytes 7.06(H) 1.09 - 3.30 K/cmm 03/17/2023 14:47 [facility] Absolute Monocytes 1.19(H) 0.10 - 0.80 K/cmm 03/17/2023 14:47 [facility] Absolute Eosinophils 0.53 0.03 - 0.61 K/cmm 03/17/2023 14:47 [facility] ABS Basophils 0.09 0.01 - 0.11 K/cmm 03/17/2023 14:47 [facility] Absolute Immature Grans 0.05 0.00 - 0.06 K/cmm 03/17/2023 14:47 [facility] Type of Differential: Auto 03/17/2023 14:47 [facility] Blood VENOUS BLOOD / Unknown Venipuncture / Unknown 03/17/2023 13:52 EDT 03/17/2023 13:52 EDT us Carrington Calderon MD PACKAGES & DNA PROB E ORDERABLES Final Result [facility] [address] [place] [address] * LEUKEMIA/LYMPHOMA PANEL BY FLOW CYTOMETRY (03/17/2023 13:52 EDT) Final Immunophenotypic Interpretation Peripheral blood, flow cytometric analysis: - No immunophenotypic evidence of a clonal cell population. See comment. 12:55 [facility] Comment The results of flow cytometry show no immunophenotypic evidence of involvement by a clonal lymphoproliferative disorder. Correlation of these findings with morphologic and clinical data is essential. 3 12:55 [facility] Attestation By the signature below, the attending physician certifies that they have 1) personally conducted a gross and/or microscopic examination of the described specimen(s), and/or personally interpreted the results of laboratory testing of the described specimen(s), and 2) personally rendered or confirmed the above diagnosis. 3 12:55 [facility] at 1255 Clinical History night sweats, lymphocytosis, smudge cells 3 12:55 [facility] Description The specimen consists [...] is no increase in blasts. 3 12:55 [facility] Flow Markers CD10, CD117, CD11c, CD16, CD19, CD20, CD3, CD33, CD34, CD38, CD4, CD45, CD5, CD56, CD8, HLA-DR, [place], and Lambda 3 12:55 [facility] FDA Disclaimer This test was developed and its performance characteristics determined by the Department of Pathology and Laboratory Medicine, [facility], [place], [place] It has not been cleared or [...] high complexity clinical laboratory testing. 3 12:55 [facility] Sample Analyzed Date and Time 03/18/23 at 1106 3 12:55 [facility] Scanned Images 3 12:55 [facility] Blood VENOUS BLOOD / Unknown Venipuncture / Unknown 03/17/2023 13:52 EDT 03/17/2023 13:52 EDT us Carrington Calderon MD PATHOLOGY ORDERABLE S Final Result [facility] [address] [place] [address] documented in this encounter Visit Diagnoses Diagnosis Night sweats Generalized hyperhidrosis Lymphocytosis Lymphocytosis (symptomatic) documented in this encounter Care Teams Warehouse Shipping Receiving Clerk Relationship Specialty Start Date End Date Carrington Calderon MD 1 [facility] Level 1 [place] [address] PCP - General Internal Medicine - Primary Care 12/09/20 documented as of this encounter
--- OUTSIDE RECORDS SUMMARY | 2024-05-31 07:25 | XMS_ITS | Encounter Summary ---
Author Organization [facility] Address [address] [place] [address] Care Team Providers Care Bulk Station Operator Name Role Phone Carrington Calderon MD Primary Care Provi anders Abigail Díaz Unavailable Reason for Visit * Reason Comments Nicotine Dependence Encounter Details Date Type Department Care Team (Late st Contact Info) Description 05/24/2023 Community Health Team [facility] Adult Primary Care - [place] 1 [place], [place] [phone] Kylah Wilson Social History Tobacco Use Types [...] on filedocumented in this encounter Care Teams Bulk Station Operator Relationship Specialty Start Date End Date Carrington Calderon MD 1 [facility] 1 [place] [address] PCP - General Internal Medicine - Primary Care 12/09/20 Abigail Díaz Service Desk Team Lead 04/21/23 01/03/24 documented as of this encounter
--- OUTSIDE RECORDS SUMMARY | 2024-05-31 07:25 | XMS_ITS | Encounter Summary ---
Author Organization [facility] Address [address] [place] [address] Care Team Providers Care Animal Rescuer Name Role Phone Carrington Calderon MD Primary Care Provi anders Reason for Referral * Consult (Routine/Next Available) - Specialty Report Received Specialty Diagnoses / Procedures Referred By Kit goode Referred To Contact Endocrinology Diagnoses Type 2 diabetes mellitus with diabetic polyneuropathy, with long-term current use of insulin ([facility]) Fermin Skinner MD Phone: tel: fax: Harjinder Azevedo DO Phone: tel: fax: Referral ID Status Reason Start Date Expiration Date Visits Requested Visits Authorized [id number] Specialty Report Received Specialty Services Required 04/14/2023 1 1 Question Answer Reason for Request: Type II DM Reason for Visit * Reason Onset Date Comments Referral Request 04/14/2023 Encounter Details Date Type Department Care Team (Late st Contact Info) Description 04/14/2023 Telephone [facility] Adult Primary Care - [place] [address] [place], [place] [phone] Carrington Calderon MD 1 [facility] Level [address] [place] [phone] Referral Request Social History Tobacco Use Types [...] EST Spoke with pt who reports her policy loan calculator recommended she see Dr Azevedo for diabetes. Referral pended for review. * Telephone Encounter - Misty Barahona - 04/14/2023 1308 EST Stella came up to the desk top publisher today (Spouse has an appointment) and is requesting a referral to Nathanael Azevedo, Account Coordinator. documented in this encounter Plan of Treatment Scheduled Referrals Name Type Priority Associated Diagnoses Order Schedule AMB CONS/FOLLOW UP ENDOCRINOLOGY Outpatient Referral Routine/Next Available Type 2 diabetes mellitus with diabetic polyneuropathy, with long-term current use of insulin ([facility] ([facility]) Expected: 04/21/2023 (Approximate), Expires: 04/14/2024 documented as of this encounter Visit Diagnoses Diagnosis Type 2 diabetes mellitus with diabetic polyneuropathy, with long-term current use of insulin ([facility] ([facility])- Primary documented in this encounter Care Teams Animal Rescuer Relationship Specialty Start Date End Date Carrington Calderon MD 1 [facility] 1 [place] [phone] PCP - General Internal Medicine - Primary Care 12/09/20 documented as of this encounter
--- OUTSIDE RECORDS SUMMARY | 2024-05-31 07:25 | XMS_ITS | Encounter Summary ---
Author Organization [facility] Address [address] [place] [address] Care Team Providers Care Precipitator Supervisor Name Role Phone Carrington Calderon MD Primary Care Provi anders Abigail Díaz Unavailable [phone] Encounter Details Date Type Department Care Team (Late st Contact Info) Description 05/26/2023 Patient Outreach [facility] Adult Primary Care - [place] 1 [place], [place] [address] Abigail Díaz Social History Tobacco Use Types [...] Abigail Díaz - 05/26/2023 1400 EST [facility] Carton Folder Care Coordination Care management phone consult/visit as scheduled, Stella was not available when called by [facility]. hospital account manager left voicemail requesting call back to reschedule if needed [facility] sent MyCHart Letter, no further outreach will be conducted documented in this encounter Plan of Treatment Not on file documented as of this encounter Visit Diagnoses Not on filedocumented in this encounter Care Teams Precipitator Supervisor Relationship Specialty Start Date End Date Carrington Calderon MD 1 [facility] Level [address] [place] [phone] PCP - General Internal Medicine - Primary Care 12/09/20 Abigail Díaz Carton Folder 04/21/23 01/03/24 documented as of this encounter
--- OUTSIDE RECORDS SUMMARY | 2024-05-31 07:25 | XMS_ITS | Encounter Summary ---
Author Organization [facility] Address [address] [place] [address] Care Team Providers Care Diamond Sorter Name Role Phone Carrington Calderon MD Primary Care Provi anders Reason for Visit * Reason Comments Med Change Request Encounter Details Date Type Department Care Team (Late st Contact Info) Description 01/06/2023 [facility] Adult Primary Care [facility] 1 [place], [place] [address] Staci Adhikari MD 1 [facility] Level [address] [place] [phone] Med Change Request Social History Tobacco [...] documented in this encounter Care Teams Diamond Sorter Relationship Specialty Start Date End Date Carrington Calderon MD 1 [facility] Level 1 [place] [phone] PCP - General Internal Medicine - Primary Care 12/09/20 documented as of this encounter
--- OUTSIDE RECORDS SUMMARY | 2024-05-31 07:25 | XMS_ITS | Encounter Summary ---
Author Organization [facility] Address [address] [place] [address] Care Team Providers Care Digital Design Engineer Name Role Phone Carrington Calderon MD Primary Care Provi anders Reason for Referral * Referral (Routine/Next Available) - Specialty Report Received Specialty Diagnoses / Procedures Referred By Kit goode Referred To Contact Multidisciplinary Diagnoses Adjustment reaction with anxiety and depression Carrington Calderon MD Phone: tel: fax: [facility] [address], [address] [place] [address] Phone: tel: fax: Referral ID Status Reason Start Date Expiration Date Visits Requested Visits Authorized [id number] Specialty Report Received Specialty Services Required 3 1 1 Question Answer Reason for Request: community therapist Reason for Visit * Reason Onset Date Comments Referral Request 03/28/2023 Encounter Details Date Type Department Care Team (Late st Contact Info) Description 03/28/2023 Telephone [facility] Adult Primary Care - [place] 1 [place], [place] [phone] Carrington Calderon MD 1 [facility] Level 1 [place] [phone] Referral Request Social History Tobacco Use Types [...] the short-term targeted therapy available through our [facility]. With this in mind, I have signed a medical home/care management referral so that she can be connected with a case management social worker to help her through this process. If I am mistaken and she is interested in short-term therapy through this office, happy to sign a [facility] referral. Please double check with her. [...] CONS/FOLLOW UP OUTPATIENT CARE MANAGEMENT - [facility] Outpatient Referral Routine/Next Available Adjustment reaction with anxiety and depression Expected: 04/05/2023 (Approximate), Expires: 03/29/2024 documented as of this encounter Visit Diagnoses Diagnosis Adjustment reaction with anxiety and depression- Primary Adjustment disorder with mixed anxiety and depressed mood documented in this encounter Care Teams Digital Design Engineer Relationship Specialty Start Date End Date Carrington Calderon MD 1 [facility] 1 [place] [phone] PCP - General Internal Medicine - Primary Care 12/09/20 documented as of this encounter
--- OUTSIDE RECORDS SUMMARY | 2024-05-31 07:25 | XMS_ITS | Encounter Summary ---
Author Organization [facility] Address [address] [place] [address] Care Team Providers Care Newspaper Library Manager Name Role Phone Carrington Calderon MD Primary Care Provi anders Reason for Visit * Reason Onset Date Comments Medications Refill 02/01/2023 Encounter Details Date Type Department Care Team (Late st Contact Info) Description 02/01/[address] [facility] Adult Primary Care [address] [phone] Carrington Calderon MD 1 [facility] Level 1 [place] [phone] Medications Refill Social History Tobacco [...] documented as of this encounter Care Teams Newspaper Library Manager Relationship Specialty Start Date End Date Carrington Calderon MD 1 [facility] 1 [place] [phone] PCP - General Internal Medicine - Primary Care 12/09/20 documented as of this encounter
--- OUTSIDE RECORDS SUMMARY | 2024-05-31 07:25 | XMS_ITS | Encounter Summary ---
Author Organization [facility] Address [address] [place] [address] Care Team Providers Care Cooker Sulfite Name Role Phone Carrington Calderon MD Primary Care Provi anders Reason for Visit * Reason Comments Emesis Reports multiple day s of vomiting. Hx gastroenteritis with similar presentations. Endorses dizziness. Lost consciousness in triage. VSS. Reports pain everywhere. Encounter Details Date Type Department Care Team (Late st Contact Info) Description 12/13/2022 17:42 EDT - 12/13/2022 21:40 EDT Emergency [facility] Emergency Department - [address] [phone] Brijesh Esposito MD 111 [facility], Level 1 [place] [address] Non-intractable vomiting with nausea (Primary [...] with long-term current use of insulin ([facility]) One Touch Verio Flex meter. 1 Each [...] associated with type 2 diabetes mellitus ([facility]) Take 1 Capsule by mouth every morning AND 3 Capsules at bedtime. 360 Capsule 4 3 06/27/19 24 insulin glargine (LANTUS SOLOSTAR/SEMGLEE) 100 unit/mL (3 mL) injection penIndications:Type 2 diabetes mellitus with diabetic polyneuropathy, with long-term current use of insulin ([facility]) Inject 40 Units into the skin at bedtime. 36 mL 4 3 06/27/19 24 insulin lispro (HUMALOG KWIKPEN INSULIN) 100 unit/mL injectable penIndications:Type 2 diabetes mellitus with diabetic polyneuropathy, with long-term current use of insulin ([facility]) Inject 8-14 Units into the skin 3 times daily with meals. 15 mL 3 3 04/04/20 23 insulin pen needles 31G x 5/16Indications:Ty pe 2 diabetes mellitus with hyperglycemia, with long-term current use of insulin ([facility]) Use 1 pen needle as directed 4 [...] with long-term current use of insulin ([facility]) Take 1 Tablet by mouth daily. [...] Comment s Home or Self Group Home documented in [...] EDT) 12/20/2022 6:15 EDT us Scan 2 Supply Crib Attendant PROCEDURE/MINOR SURGICAL OR DERABLES Final Result * ECG REPORT - SCANNED (12/20/2022 6:15 EDT) 12/20/2022 6:15 EDT us Scan 2 Supply Crib Attendant PROCEDURE/MINOR SURGICAL OR DERABLES Final Result * POCT TEST, CLINITEK (12/13/2022 20:26 EDT) UPT Result Negative Negative 12/13/2022 20:32 EDT [facility] HN LAB COMMENT (CLINITEK, UPT) Test performed at Emergency Department 12/13/2022 20:32 EDT [facility] Comment:False negative resul ts may occur in women who are beyond 5-8 weeks gestation. Diagnosis of should be based on a correlation of test results with typical clinical signs and symptoms. Urine URINE SPECIMEN COLLECTION, CLEAN CATCH / Unknown 12/13/2022 20:26 EDT 12/13/2022 20:32 EDT us Fran Bush MD POINT OF CARE TEST ORDERABLES F inal Result [facility] [address] [place] [phone] * (ABNORMAL) POCT URINE DIPSTICK, CLINITEK (12/13/2022 20:24 EDT) Color, UA Yellow Yellow 12/13/2022 20:26 EDT [facility] Clarity, UA Clear Clear 12/13/2022 20:26 EDT [facility] Glucose, UA Negative Negative mg/dL 12/13/2022 20:26 T [facility] Bilirubin, UA Negative Negative 12/13/2022 20:26 T [facility] Ketones, UA 3+(AA) Negative 12/13/2022 20:26 EDT [facility] Specific [place], Urine 1.020 1.001 - 1.035 12/13/2022 20:26 EDT [facility] Blood, UA 3+(A) Negative 12/13/2022 20:26 EDT [facility] pH, UA 7.0 4.6 - 8.0 12/13/2022 20:26 EDT [facility] Protein, UA 1+(A) Negative 12/13/2022 20:26 EDT [facility] Urobilinogen, UA 0.2 0.2 - 1.0 mg/dL 12/13/2022 20:26 EDT [facility] Nitrite, UA Negative Negative 12/13/2022 20:26 EDT [facility] Leuk Esterase Trace(A) Negative 12/13/2022 20:26 EDT [facility] HN LAB COMMENT (CLINITEK, UR) Test performed at Emergency Department 12/13/2022 20:26 EDT [facility] Urine URINE SPECIMEN COLLECTION, CLEAN CATCH / Unknown 12/13/2022 20:24 EDT 12/13/2022 20:26 EDT us Fran Bush MD POINT OF CARE TEST ORDERABLES F inal Result Performing Organization Address City/[facility]/ZIP Co de Phone Number [facility] [address] [place] [address] * POCT CSN BARCODE URINE DIPSTICK (12/13/2022 20:20 EDT) Urine URINE SPECIMEN COLLECTION, CLEAN CATCH / Unknown Urine Collect / Unknown 12/13/2022 20:20 EDT 12/13/2022 20:20 EDT us Fran Bush MD LAB INFO SERVICE AND SUPPORT & PHONE RESULT Final Result Performing Organization Address [facility]/ZIP Co de Phone Number [facility] [address] [place] [address] * POCT CSN BARCODE URINE PREG TEST (12/13/2022 20:20 EDT) Urine URINE SPECIMEN COLLECTION, CLEAN CATCH / Unknown Urine Collect / Unknown 12/13/2022 20:20 EDT 12/13/2022 20:20 EDT us Fran Bush MD LAB INFO SERVICE AND SUPPORT & PHONE RESULT Final Result [facility] [address] [place] [address] * EKG 12-LEAD (12/13/2022 18:09 EDT) 12/13/2022 18:0 9 EDT Narrative [facility] - 12/17/2022 9:43 EDT ?[facility] Emergency ? Test Date: ?2022-12-13 Pat Name: ? CRISTY LUO ?Department: ?? ED ? Room: ? AC17 Gender: ? Female ? Deckhand: ?? [id number] : ?1985 ? Requested By: CATE COLEY Order Number: [id number] ? Reading MD: ?? CINDY CLAUDIO MD ? Measurements Intervals ?[place] ? Rate: ? 85 ? P: ?57 WI: ? 144 ?QRS: ?5 QRSD: ? 97 [...] Cindy Snyder Jr., MD - 12/17/2022 [facility] Test Date: 2022-12-13 Pat Name: CRISTY LUO Department: ED Room: [facility] Gender: Female Deckhand: [id number] : 1985 Requested By: CATE COLEY Order Number: [id number] Reading MD: CINDY SNYDER MD Measurements Intervals [place] Rate: 85 P: 57 WI: 144 QRS: 5 QRSD: 97 T: -1 [...] MD CARDIAC ECG ORDERABLES Final Res ult [facility] * (ABNORMAL) COMPLETE BLOOD COUNT AND DIFFERENTIAL (12/13/2022 18:04 EDT) WBC 17.27(H) 4.00 - 12.40 K/cmm 12/13/2022 18:17 [facility] RBC 4.72 3.86 - 5.04 M/cmm 12/13/2022 18:17 [facility] Hemoglobin 14.9 11.6 - 15.2 g/dL 12/13/2022 18:17 [facility] HCT 41.3 34.9 - 44.4 % 12/13/2022 18:17 [facility] MCV 88 81 - 98 fL 12/13/2022 18:17 [facility] MCH 31.6 26.7 - 33.3 pg 12/13/2022 18:17 [facility] MCHC 36.1(H) 32.1 - 35.9 g/dL 12/13/2022 18:17 [facility] RDW-CV 13.0 <14.7 % 12/13/2022 18:17 [facility] RDW-SD 41.4 <50.4 fl 12/13/2022 18:17 [facility] PLT 434(H) 141 - 377 K/cmm 12/13/2022 18:17 [facility] MPV 9.3(L) 9.5 - 12.7 fL 12/13/2022 18:17 [facility] % Neutrophils 65.9 % 12/13/2022 18:17 [facility] % Lymphocytes 25.1 % 12/13/2022 18:17 [facility] % Monocytes 8.2 % 12/13/2022 18:17 [facility] % Eosinophils 0.3 % 12/13/2022 18:17 [facility] % Basophils 0.3 % 12/13/2022 18:17 [facility] % Immature Grans 0.2 % 12/14/19 18:17 [facility] Absolute Neutrophils 11.39(H) 2.20 - 8.85 K/cmm 12/13/2022 18:17 [facility] Absolute Lymphocytes 4.33(H) 1.09 - 3.30 K/cmm 12/13/2022 18:17 [facility] Absolute Monocytes 1.41(H) 0.10 - 0.80 K/cmm 12/13/2022 18:17 [facility] Absolute Eosinophils 0.05 0.03 - 0.61 K/cmm 12/13/2022 18:17 [facility] ABS Basophils 0.05 0.01 - 0.11 K/cmm 12/13/2022 18:17 [facility] Absolute Immature Grans 0.04 0.00 - 0.06 K/cmm 12/13/2022 18:17 [facility] Type of Differential: Auto 12/13/2022 18:17 [facility] Blood VENOUS BLOOD / Unknown Venipuncture / Unknown 12/13/2022 18:04 EDT 12/13/2022 18:08 EDT us Fran Bush MD PACKAGES & DNA PROBE ORDERABLES Final Result [facility] [address] [place] [address] * (ABNORMAL) COMPREHENSIVE METABOLIC PANEL (CMP) (12/13/2022 18:04 EDT) Sodium 138 136 - 145 mmol/L 12/13/2022 18:27 [facility] Potassium 3.1(L) 3.5 - 5.0 mmol/L 12/13/2022 18:27 [facility] Chloride 94(L) 96 - 110 mmol/L 12/13/2022 18:27 [facility] CO2 Total 28 22 - 32 mmol/L 12/13/2022 18:27 [facility] Glucose 220(H) 70 - 99 mg/dl 12/13/2022 18:27 [facility] BUN 17 10 - 26 mg/dL 12/13/2022 18:27 [facility] Creatinine 0.43(L) 0.52 - 1.04 mg/dL 12/13/2022 18:27 [facility] eGFR 128 >60 mL/min/1.7 3m2 12/13/2022 18:27 [facility] Total Protein 7.4 6.3 - 8.2 g/dL 12/13/2022 18:27 [facility] Albumin 4.3 3.4 - 4.9 g/dL 12/13/2022 18:27 [facility] Alkaline Phosphatase 92 38 - 126 U/L 12/13/2022 18:27 [facility] AST 27 15 - 46 U/L 12/13/2022 18:27 [facility] ALT 31 <35 U/L 12/13/2022 18:27 [facility] Bilirubin, Total 0.6 <1.4 mg/dL 12/14/19 18:27 [facility] Calcium 9.8 8.5 - 10.5 mg/dL 12/13/2022 18:27 [facility] Albumin/Globulin Ratio 1.4 1.0 - 2.5 g/dL 12/13/2022 18:27 [facility] Anion Gap 16(H) 5 - 14 mmol/L 12/13/2022 18:27 [facility] Blood VENOUS BLOOD / Unknown Venipuncture / Unknown 12/13/2022 18:04 EDT 12/13/2022 18:08 EDT us Fran Bush MD CHEMISTRY & BLOOD GAS ORDERABLE S Final Result [facility] [address] [place] [address] * (ABNORMAL) POCT GLUCOSE, INTERFACED (12/13/2022 18:01 EDT) Glucose, POC 223(H) 70 - 100 mg/dL 12/13/2022 18:03 EDT [facility] HN LAB POC COMMENT (GLUCOSE) Test Performed by Nursing Services 12/13/2022 18:03 EDT [facility] Blood CAPILLARY BLOOD / Unknown 12/13/2022 18:01 EDT 12/13/2022 18:03 EDT us Provider Unknown POINT OF CARE TEST ORDERABLE S Final Result Performing Organization Address City/State/[facility] Co de Phone Number [facility] [address] [place] [address] documented in this encounter Visit Diagnoses Diagnosis [...] 12/13/2022 documented in this encounter Care Teams Cooker Sulfite Relationship Specialty Start Date End Date Carrington Calderon MD 1 [facility] Level 1 [place] [phone] PCP - General Internal Medicine - Primary Care 12/09/20 documented as of this encounter
--- OUTSIDE RECORDS SUMMARY | 2024-05-31 07:25 | XMS_ITS | Encounter Summary ---
Author Organization [facility] Address [address] [place] [address] Care Team Providers Care Comprehensive Advisor Name Role Phone Carrington Calderon MD Primary Care Provi anders Abigail Díaz Unavailable Carmelo Hendrickson Unavailable Unavailable Abigail Díaz Unavailable Reason for Visit * Reason Comments Medications Refill Encounter Details Date Type Department Care Team (Late st Contact Info) Description 03/31/2023 Refill [facility] Adult Primary Care - [address] [address] Carrington Calderon MD 1 [facility] Level 1 [place] [phone] Medications Refill Social History Tobacco Use Types [...] polyneuropathy, with long-term current use of insulin ([facility]) INJECT 12 UNITS THREE TIMES [...] THREE TIMES DAILY WITH MEALS [facility] [address] [place] [address] Compete Confirmed Pharmacy? Yes Patient out of medication? Unknown How many pills does patient have left? unknown Last Refill Date: 11/18/22 Refills left? (explain exceptions requiring early refill) No Recent Visits Date Type Provider Dept 11/17/22 Office Visit Carrington Calderon MD [facility] Adult Prim Care 09/02/22 Office Visit Nimisha Clifton NP [facility] Adult Prim Care 05/20/22 Office Visit Rachel Stein PA-C [facility] Adult Prim Care Showing recent visits within past 540 days with a meds authorizing provider and meeting all other requirements Future Appointments Date Type Provider Dept 06/27/23 Appointment Carrington Calderon MD [facility] Adult Prim Care Showing future [...] current use of insulin ([facility]) documented in this encounter Care Teams Comprehensive Advisor Relationship Specialty Start Date End Date Carrington Calderon MD 1 [facility] 1 [place] [phone] PCP - General Internal Medicine - Primary Care 12/09/20 Abigail Díaz Catalytic Case Operator 04/21/23 01/03/24 Carmelo Hendrickson Coordinator 12/01/23 Abigail Díaz Catalytic Case Operator 01/04/24 documented as of this encounter
--- OUTSIDE RECORDS SUMMARY | 2024-05-31 07:25 | XMS_ITS | Encounter Summary ---
Author Organization [facility] Address [address] [place] [address] Care Team Providers Care Deputy County Counsel Name Role Phone Carrington Calderon MD Primary Care Provi anders Reason for Visit * Reason Onset Date Comments Prior Auth, Medication 04/03/2023 Encounter Details Date Type Department Care Team (Late st Contact Info) Description 04/03/2023 Telephone [facility] Adult Primary Care [address] [phone] Carrington Calderon MD 1 [facility] Level 1 [place] [phone] Prior Auth, Medication Social History [...] of insulin ([facility]) Inject 12 Units into the [...] current use of insulin ([facility] Primary documented in this encounter Discontinued Medications Medication Sig Discontinue Reason Start Date End Da te NOVOLOG FLEXPEN U-100 INSULIN 100 unit/mL (3 mL) injectable penIndications:Type 2 diabetes mellitus with diabetic polyneuropathy, with long-term current use of insulin ([facility]) INJECT 12 UNITS THREE TIMES DAILY WITH MEALS Insurance does not cover 04/01/2023 04/04/2023 insulin lispro (HUMALOG KWIKPEN INSULIN) 100 unit/mL injectable penIndications:Type 2 diabetes mellitus with diabetic polyneuropathy, with long-term current use of insulin ([facility]) Inject 8-14 Units into the skin 3 times daily with meals. Reorder 11/18/2022 04/04/2023 documented as of this encounter Care Teams Deputy County Counsel Relationship Specialty Start Date End Date Carrington Calderon MD 1 [facility] Level 1 [place] [phone] PCP - General Internal Medicine - Primary Care 12/09/20 documented as of this encounter
--- OUTSIDE RECORDS SUMMARY | 2024-05-31 07:25 | XMS_ITS | Encounter Summary ---
Author Organization [facility] Address [address] [place] [address] Care Team Providers Care Telesales Manager Name Role Phone Carrington Calderon MD Primary Care Provi anders Abigail Díaz Unavailable Carmelo Hendrickson Unavailable Unavailable Abigail Díaz Unavailable [phone] Encounter Details Date Type Department Care Team (Late st Contact Info) Description 03/18/2023 Orders Only [facility] Adult Primary Care - [address] [phone] Ratna Latham Abnormal TSH Social History Tobacco [...] index 03/25/2023 15:55 EDT [facility] Comment: Test Performed by: [facility] - [address] [address] Programmer Analyst Health It: Wiley Fry M.D. Ph.D.; CLIA# [id number] Blood VENOUS BLOOD / Unknown Venipuncture / Unknown 03/14/2023 15:19 EDT 03/18/2023 16:07 EDT us Carrington Calderon MD CHEMISTRY & BLOOD G ORDERABLES Final Result Performing Organization Address City/State/[facility] Co de Phone Number [facility] [address] [place] [address] documented in this encounter Visit Diagnoses Diagnosis Abnormal TSH Other abnormal clinical finding documented in this encounter Care Teams Telesales Manager Relationship Specialty Start Date End Date Carrington Calderon MD 1 [facility] 1 [place] [phone] PCP - General Internal Medicine - Primary Care 12/09/20 Abigail Díaz Thoracic Surgeon 04/21/23 01/03/24 Carmelo Hendrickson Coordinator 12/01/23 Abigail Díaz Thoracic Surgeon 01/04/24 documented as of this encounter
--- OUTSIDE RECORDS SUMMARY | 2024-05-31 07:25 | XMS_ITS | Encounter Summary ---
Author Organization [facility] Address [address] [place] [address] Care Team Providers Care System Support Technician Name Role Phone Carrington Calderon MD Primary Care Provi anders Abigail Díaz Unavailable [phone] Carmelo Hendrickson Unavailable Unavailable Abigail Díaz Unavailable Reason for Visit * Reason Comments Medications Refill Encounter Details Date Type Department Care Team (Late st Contact Info) Description 03/31/2023 Refill [facility] Adult Primary Care - [address] [phone] Vicki Mosqueda MD [address] [place] [address] Medications Refill Social History Tobacco Use Types [...] Sig: INJECT 40 UNITS SUBCUTANEOUSLY AT BEDTIME [facility] [address] [place] [address] Confirmed Pharmacy? Yes Patient out of medication? Unknown How many pills does patient have left? unknown Last Refill Date: 11/17/22 Refills left? (explain exceptions requiring early refill) No Recent Visits Date Type Provider Dept 11/17/22 Office Visit Carrington Calderon MD [facility] Adult Prim Care 09/02/22 Office Visit Nimisha Clifton NP [facility] Adult Prim Care 05/20/22 Office Visit Rachel Stein PA-C [facility] Adult Prim Care Showing recent visits within past 540 days with a meds authorizing provider and meeting all other requirements Future Appointments Date Type Provider Dept 06/27/23 Appointment Carrington Calderon MD [facility] Adult Prim Care Showing future appointments within next 150 days with a meds authorizing provider and meeting all other requirements Future appointment: Already Scheduled JOSS WASHINGTON RN 04/01/2023 10:43 documented in this encounter Plan of Treatment Not on file documented as of this encounter Visit Diagnoses Not on filedocumented in this encounter Care Teams System Support Technician Relationship Specialty Start Date End Date Carrington Calderon MD 1 [facility] 1 [place] [phone] PCP - General Internal Medicine - Primary Care 12/09/20 Abigail Díaz Auto Air Conditioning Mechanic 04/21/23 01/03/24 Carmelo Hendrickson Coordinator 12/01/23 Abigail Díaz Auto Air Conditioning Mechanic 01/04/24 documented as of this encounter
--- OUTSIDE RECORDS SUMMARY | 2024-05-31 07:25 | XMS_ITS | Encounter Summary ---
Author Organization [facility] Address [address] [place] [address] Care Team Providers Care Sole Tacker Name Role Phone Carrington Calderon MD Primary Care Provi anders BarahonaJameyClayAmrita Unavailable Reason for Referral * Consult (Routine/Next Available) - Closed Specialty Diagnoses / Procedures Referred By Kit goode Referred To Contact Diagnoses Carrington Rothman MD Phone: tel: fax: [address] [address] Phone: tel: fax: Referral ID Status Reason Start Date Expiration Date V isits Requested Visits Authorized [id number] Closed Specialty Services Required 04/21/2023 1 0 Question Answer Reason for Request: smoking cessation * Referral (Routine/Next Available) - Authorization Not Required Specialty Diagnoses / Procedures Referred By Kit goode Referred To Contact Multidisciplinary Diagnoses Carrington Rothman MD Phone: tel: fax: [address], [address] [place] [address] Phone: tel: fax: Referral ID Status Reason Start Date Expiration Date Visits Requested Visits Authorized [id number] Authorization Not Required Specialty Services Required 04/21/20 23 1 1 Question Answer Reason for Request: tobacco cessation support Encounter Details Date Type Department Care Team (Late st Contact Info) Description 04/21/2023 Patient Outreach [facility] Adult Primary Care [address] [address] Bre Amrita Smoking (Primary Dx) Social History [...] * Amrita Asencio - 04/21/2023 1104 EST [facility] Care Management Assessment and Care Plan Referral Reason: interested in therapy Pertinent medical and behavioral health issues: ENT Chronic left ear pain ?? Infectious Disease Skin infection ?? Endocrine/Metabolic Pannus, abdominal Type 2 diabetes mellitus with diabetic polyneuropathy, with long-term current use of insulin (HCC-CMS) ([facility]) ?? Gastrointestinal/Abdominal Gastroparesis ?? Psychiatric [...] - BCB* ASUNCION LUO 05/08/1986 Male Spouse [id number] 02/[birth year] [id number] [address], [place] [address] 2. MEDICAID ACO * CRISTY LUO 1985 Female Self [id number] 06/06/22 [address] Any gaps or barriers with healthcare insurance coverage: No DME: scooter, due to amputee diabetic sensor DME vendor: [employer] secondary insurance covers supplies Barriers to using [...] today within 1 week and will contact animal care technician if additional assistance is needed as discussed. 2. stella will schedule a counseling appointment with at least one of the counselors provided today within 1 week and will follow up with animal care technician at next scheduled follow up on within [...] marijuana use to combat anxiety symptoms manager background reviewed current mental health resources with Stella [...] AMB CONS/FOLLOW UP [facility] Outpatient Referral Routine Consult Smoking Expected: 04/28/2023 (Approximate), Expires: 04/21/2024 AMB CONS/FOLLOW UP SMOKING CESSATION PROGRAM Outpatient Referral Routine Consult Smoking Expected: 04/28/2023 (Approximate), Expires: 04/21/2024 documented as of this encounter Visit Diagnoses Diagnosis Smoking- Primary Tobacco use disorder documented in this encounter Care Teams Sole Tacker Relationship Specialty Start Date End Date Carrington Calderon MD 1 [facility] Level 1 [place] [address] PCP - General Internal Medicine - Primary Care 12/09/20 Amrita Asencio Telephone Lines Repairer 04/21/23 01/03/24 documented as of this encounter
--- OUTSIDE RECORDS SUMMARY | 2024-05-31 07:25 | XMS_ITS | Encounter Summary ---
Author Organization [facility] Address [address] [place] [address] Care Team Providers Care Casing Operator Name Role Phone Carrington Calderon MD Primary Care Provi anders Abigail Díaz Unavailable Carmelo Hendrickson Unavailable Unavailable Abigail Díaz Unavailable Reason for Visit * Reason Onset Date Comments Coordination Of Care 02/17/2023 Encounter Details Date Type Department Care Team (Late st Contact Info) Description 02/17/2023 Telephone [facility] Adult Primary Care - [address] [phone] Carrington Calderon MD [address] [phone] Coordination Of Care Social History Tobacco Use [...] BLOOD COUNT AND DIFFERENTIAL (03/14/2023 15:19 EDT) [facility] WBC 18.08(H) 4.00 - 12.40 K/cmm 03/14/2023 16:23 [facility] RBC 4.40 3.86 - 5.04 M/cmm 03/14/2023 16:23 [facility] Hemoglobin 14.0 11.6 - 15.2 g/dL 03/14/2023 16:23 [facility] HCT 40.6 34.9 - 44.4 % 03/14/2023 16:23 [facility] MCV 92 81 - 98 fL 03/14/2023 16:23 [facility] MCH 31.8 26.7 - 33.3 pg 03/14/2023 16:23 [facility] MCHC 34.5 32.1 - 35.9 g/dL 03/14/2023 16:23 EDT [facility] RDW-CV 12.6 <14.7 % 03/14/2023 16:23 EDT [facility] RDW-SD 42.6 <50.4 fl 03/14/2023 16:23 EDT [facility] PLT 412(H) 141 - 377 K/cmm 03/14/2023 16:23 EDT [facility] MPV 9.3(L) 9.5 - 12.7 fL 03/14/2023 16:23 EDT [facility] Blood VENOUS BLOOD / Unknown Venipuncture / Unknown 03/14/2023 15:19 EDT 03/14/2023 15:19 EDT Carrington Calderon MD PACKAGES & DNA PROB E ORDERABLES Final Result Performing Organization Address [facility] de Phone Number [facility] [address] [place] [address] * (ABNORMAL) HEMOGLOBIN A1C (03/14/2023 15:19 EDT) Hemoglobin A1c 8.3(H) <5.7 % 03/14/2023 22:02 T [facility] Comment: Glycemic Status References: Normal: ??<5.7% Pre-Diabetes: ??5.7% - 6.4% Diagnostic of Diabetes: ??> or = 6.5% (if confirmed) Est Avg Glucose 192 mg/dL 22:02 T [facility] Comment:The eAG represents t he A1c result expressed as average glucose in mg/dL. Blood VENOUS BLOOD / Unknown Venipuncture / Unknown 03/14/2023 15:19 EDT 03/14/2023 15:19 EDT Carrington Calderon MD CHEMISTRY & BLOOD G ORDERABLES Final Result Performing Organization Address [facility]/ZIP Co de Phone Number [facility] [address] [place] [address] * (ABNORMAL) BASIC METABOLIC PANEL (BMP) (03/14/2023 15:19 EDT) Sodium 142 136 - 145 mmol/L 03/14[facility]2023 [facility] Potassium 4.2 3.5 - 5.0 mmol/L 03/14/2023 16:50 [facility] Chloride 103 96 - 110 mmol/L 03/14/2023 16:50 [facility] CO2 Total 25 22 - 32 mmol/L 03/14/2023 16:50 [facility] Anion Gap 14 5 - 14 mmol/L 03/14/2023 16:50 [facility] Glucose 45(LL) 70 - 99 mg/dl 03/14/2023 16:50 [facility] Calcium 9.9 8.5 - 10.5 mg/dL 03/14/2023 16:50 [facility] BUN 11 10 - 26 mg/dL 03/14/2023 16:50 [facility] Creatinine 0.99 0.52 - 1.04 mg/dL 03/14/2023 16:50 [facility] eGFR 75 >60 mL/min/1.73 m2 03/14/2023 16:50 [facility] Blood VENOUS BLOOD / Unknown Venipuncture / Unknown 03/14/2023 15:19 EDT 03/14/2023 15:19 EDT us Carrington Calderon MD CHEMISTRY & BLOOD G ORDERABLES Final Result [facility] [address] [place] [address] documented in this encounter Visit Diagnoses Diagnosis Type 2 diabetes mellitus with diabetic polyneuropathy, with long-term current use of insulin ([facility])- Primary documented in this encounter Care Teams Casing Operator Relationship Specialty Start Date End Date Carrington Calderon MD 1 [facility] 1 [place] [address] PCP - General Internal Medicine - Primary Care 12/09/20 Abigail Díaz Enterprise Account Manager 04/21/23 01/03/24 Carmelo Hendrickson Coordinator 12/01/23 Abigail Díaz Enterprise Account Manager 01/04/24 documented as of this encounter
--- OUTSIDE RECORDS SUMMARY | 2024-05-31 07:25 | XMS_ITS | Encounter Summary ---
Author Organization [facility] Address [address] [place] [address] Care Team Providers Care Stone Cleaner Name Role Phone Carrington Calderon MD Primary Care Provi anders Abigail Díaz Unavailable [phone] Carmelo Hendrickson Unavailable Unavailable Abigail Díaz Unavailable Reason for Visit * Reason Comments Medications Refill Encounter Details Date Type Department Care Team (Late st Contact Info) Description 01/04/2023 Refill [facility] Adult Primary Care - [address] [address] Carrington Calderon MD 1 [facility] Level 1 [place] [phone] Medications Refill Social History Tobacco Use Types [...] HOURS NEEDED FOR PAIN. DAILY MAX 200[facility] [address] [place] [address] Confirmed Pharmacy? Yes Patient out of medication? Unknown Last Refill Date: 11/17/22 Refills left? (explain exceptions requiring early refill) No Recent Visits Date Type Provider Dept 11/17/22 Office Visit Carrington Calderon MD [facility] Adult [place] Care 09/02/22 Office Visit Nimisha Clifton, GUSTAVO [facility] Adult Prim Care 05/20/22 Office Visit Rachel Stein PA-C [facility] Adult Prim Care Showing recent visits within past 540 days with a meds authorizing provider and meeting all other requirements Future Appointments Date Type Provider Dept 03/16/23 Appointment Carrington Calderon MD [facility] Adult Prim Care Showing future [...] documented as of this encounter Care Teams Stone Cleaner Relationship Specialty Start Date End Date Carrington Calderon MD 1 [facility] 1 [place] [address] PCP - General Internal Medicine - Primary Care 12/09/20 Abigail Díaz Senior Oracle Soa Developer 04/21/23 01/03/24 Carmelo Hendrickson Coordinator 12/01/23 Abigail Díaz Senior Oracle Soa Developer 01/04/24 documented as of this encounter
--- OUTSIDE RECORDS SUMMARY | 2024-05-31 07:25 | XMS_ITS | Encounter Summary ---
Author Organization [facility] Address [address] [place] [address] Care Team Providers Care Ict Teacher Name Role Phone Carrington Calderon MD Primary Care Provi anders Abigail Díaz Unavailable Reason for Visit * Reason Onset Date Comments Epilepsy Physician Message 05/26/2023 Encounter Details Date Type Department Care Team (Late st Contact Info) Description 05/26/2023 Telephone [facility] Adult Primary Care - [address] [address] Samantha Hough MD [address] [place] [phone] Epilepsy Physician Message Social History Tobacco Use Types Packs/Day [...] - Samantha Hough MD - 05/26/20232051 EST Epilepsy Physician Provider Documentation Returned to page to mother [...] - Samantha Hough MD - 05/26/20232022 EST Epilepsy Physician Provider Documentation 8:20 pm page to hydraulic oil tool operator who states mother in law of patient calling due to concern of patient being sick and vomiting Electrical Instrument Technician called back x 2, direct to voicemail with no voicemail set up. Await additional calls. Samantha Hough MD documented in this encounter Plan of Treatment Not on file documented as of this encounter Visit Diagnoses Not on filedocumented in this encounter Care Teams Ict Teacher Relationship Specialty Start Date End Date Carrington Calderon MD 1 [facility] 1 [place] [phone] PCP - General Internal Medicine - Primary Care 12/09/20 Abigail Díaz Sales And Service Agent 04/21/23 01/03/24 documented as of this encounter
--- OUTSIDE RECORDS SUMMARY | 2024-05-31 07:25 | XMS_ITS | Encounter Summary ---
Author Organization [facility] Address [address] [place] [address] Care Team Providers Care Weed Sprayer Name Role Phone Carrington Calderon MD Primary Care Provi anders Reason for Visit * Reason Onset Date Comments Coordination Of Care 03/30/2023 Encounter Details Date Type Department Care Team (Late st Contact Info) Description 03/30/2023 Telephone [facility] Adult Primary Care [facility] 1 [place], [place] [phone] Carrington Calderon MD 1 [facility] Level 1 [place] [address] Coordination Of Care Social History [...] current use of insulin ([facility] ([facility]) documented in this encounter Care Teams Weed Sprayer Relationship Specialty Start Date End Date Carrington Calderon MD 1 [facility] 1 [place] [address] PCP - General Internal Medicine - Primary Care 12/09/20 documented as of this encounter
--- OUTSIDE RECORDS SUMMARY | 2024-05-31 07:25 | XMS_ITS | Encounter Summary ---
Author Organization [facility] Address [address] [place] [address] Care Team Providers Care Car Rental Clerk Name Role Phone Carrington Calderon MD Primary Care Provi anders Abigail Díaz Unavailable [phone] Reason for Visit * Reason Comments Nicotine Dependence Encounter Details Date Type Department Care Team (Late st Contact Info) Description 05/17/2023 Community Health Team [facility] Adult Primary Care - [place] 1 [place], [place] [phone] yKlah Wilson Social History Tobacco Use Types Packs/Day [...] filedocumented in this encounter Care Teams Car Rental Clerk Relationship Specialty Start Date End Date Carrington Calderon MD 1 [facility] 1 [place] [address] PCP - General Internal Medicine - Primary Care 12/09/20 Abigail Díaz Designer 04/21/23 01/03/24 documented as of this encounter
--- OUTSIDE RECORDS SUMMARY | 2024-05-31 07:25 | XMS_ITS | Encounter Summary ---
Author Organization [facility] Address [address] [place] [address] Care Team Providers Care Radiologic Technology Program Director Name Role Phone Carrington Calderon MD Primary Care Provi anders Reason for Visit * Reason Comments Medication Management Encounter Details Date Type Department Care Team (Late st Contact Info) Description 12/17/2022 14:45 EDT Telemedicine [facility] Adult Primary Care - [address] [address] Carrington Calderon MD 1 [facility] Level 1 [place] [phone] Type 2 diabetes mellitus with diabetic polyneuropathy, with long-term current use of insulin ([facility]) (Primary Dx); Anxiety and depression; Gastroparesis; Catamenial [...] of Assessment Author No 10/02/2020 23:50 EDT Cowley, Krist in, RN * Are you blind [...] Notes * Carrington Calderon MD - 12/17/2022 6420 EDT Primary Care Video Visit Assessment & Plan Diagnoses and all orders for this visit: Type 2 diabetes mellitus with diabetic polyneuropathy, with long-term current use of insulin ([facility]) ([facility]): No change made today. Will inquire [...] current medications and allergies ROS - See [facility] TELEMEDICINE VIDEO VISIT Today's visit was provided through telemedicine video conferencing: The location of the patient : Home The location of the provider: Office The following staff and their role did participate in today's encounter visit: Carrington Calderon MD Objective There were no vitals taken for this visit. Physical Exam * Jose Luis Wilson - 12/17/2022 6016 EDT The concept of ???Telemedicine?? has been [...] polyneuropathy, with long-term current use of insulin ([facility])- Primary Anxiety and depression [...] documented as of this encounter Care Teams Radiologic Technology Program Director Relationship Specialty Start Date End Date Carrington Calderon MD 1 [facility] 1 [place] [phone] PCP - General Internal Medicine - Primary Care 12/09/20 documented as of this encounter
--- OUTSIDE RECORDS SUMMARY | 2024-05-31 07:25 | XMS_ITS | Encounter Summary ---
Author Organization [facility] Address [address] [place] [address] Care Team Providers Care Clerical And Administrative Workers Name Role Phone Carrington Calderon MD Primary Care Provi anders Abigail Díaz Unavailable Reason for Visit * Reason Comments Follow-up EST/ Gastroparesis/ Notes in scans * Consult (Routine) - Receiving Office to Obtain Authorization Specialty Diagnoses / Procedures Referred By Kit goode Referred To Contact Diagnoses Gastroparesis Dale Collier MD [address] [place] [address] [place] [address] Phone: tel: fax: [facility] [address] [address] Phone: tel: fax: Referral ID Status Reason Start Date Expiration Date Visits Requested Visits Authorized [id number] Receiving Office to Obtain Authorization Specialty Services Required 1 1 Encounter Details Date Type Department Care Team (Late st Contact Info) Description 05/13/2023 11:00 EST Office Visit [facility] [address] [address] Scott Arzate MD [address] [place] [address], Level [address] [place] [phone] Cyclic vomiting syndrome (Primary Dx) Social History [...] Entry Date Author No 10/02/2020 23:50 EDT [place], Krist in, RN documented in this encounter Ordered Prescriptions Prescription Sig Dispense Quantity Refills Last Filled Start Date End Date SUMAtriptan (IMITREX) 20 mg/actuation nasal spray Instill 1 [place] into right nostril as needed for Migraine. [...] vomiting documented in this encounter Care Teams Clerical And Administrative Workers Relationship Specialty Start Date End Date Carrington Calderon MD 1 [facility] Level 1 [place] [phone] PCP - General Internal Medicine - Primary Care 12/09/20 Abigail Díaz Breast Splitter 04/21/23 01/03/24 documented as of this encounter
--- OUTSIDE RECORDS SUMMARY | 2024-05-31 07:25 | XMS_ITS | Encounter Summary ---
Author Organization [facility] Address [address] [place] [address] Care Team Providers Care Health Assistant Name Role Phone Carrington Calderon MD Primary Care Provi anders Abigail Díaz Unavailable [phone] Carmelo Hendrickson Unavailable Unavailable Abigail Díaz Unavailable Reason for Visit * Reason Onset Date Comments Appointment Related 05/04/2023 Encounter Details Date Type Department Care Team (Late st Contact Info) Description 05/04/2023 Telephone [facility] - [facility] [address] [place] [address] Amilcar Ortega MD 62 [facility] [address] [place] [address] Appointment Related Social History Tobacco [...] No 11/17/2022 Housing Stability Vital Sign Answer Nomr e Recorded In the last 12 months, [...] - 05/04/2023 0823 EST Patient accepted zoom HEAD WORKER opening with Dr. Ortega today at 4:00. documented in this encounter Plan of Treatment Not on file documented as of this encounter Visit Diagnoses Not on filedocumented in this encounter Care Teams Health Assistant Relationship Specialty Start Date End Date Carrington Calderon MD 1 [facility] 1 [place] [address] PCP - General Internal Medicine - Primary Care 12/09/20 Abigail Díaz Lean Engineer 04/21/23 01/03/24 Carmelo Hendrickson Coordinator 12/01/23 Abigail Díaz Lean Engineer 01/04/24 documented as of this encounter
--- OUTSIDE RECORDS SUMMARY | 2024-05-31 07:25 | XMS_ITS | Encounter Summary ---
Author Organization [facility] Address [address] [place] [address] Care Team Providers Care Lgsw Name Role Phone Carrington Calderon MD Primary Care Provi anders Reason for Visit * Reason Onset Date Comments Critical Value 03/14/2023 Encounter Details Date Type Department Care Team (Late st Contact Info) Description 03/14/2023 Telephone [facility] Adult Primary Care - [place] [address] [place], [place] [address] Carrington Calderon MD 1 [facility] Level 1 [place] [address] Critical Value Social History Tobacco [...] minutes. She was instructed to call the stone gluer MD if it was not going up [...] on filedocumented in this encounter Care Teams Lgsw Relationship Specialty Start Date End Date Carrington Calderon MD 1 [facility] 1 [place] [phone] PCP - General Internal Medicine - Primary Care 12/09/20 documented as of this encounter
--- OUTSIDE RECORDS SUMMARY | 2024-05-31 07:25 | XMS_ITS | Encounter Summary ---
Author Organization [facility] Address [address] [place] [address] Care Team Providers Care Hazardous Waste Management Specialist Name Role Phone Carrington Calderon MD Primary Care Provi anders Abigail Díaz Unavailable Reason for Visit * Reason Comments Nicotine Dependence Encounter Details Date Type Department Care Team (Late st Contact Info) Description 05/11/2023 Community Health Team [facility] Adult Primary Care - [place] 1 [place], [place] [phone] Kylah Wilson Social History Tobacco Use Types [...] and would like to work with a onsite health coach 1:1 for additional support along with [...] on filedocumented in this encounter Care Teams Hazardous Waste Management Specialist Relationship Specialty Start Date End Date Carrington Calderon MD 1 [facility] Level 1 [place] [address] PCP - General Internal Medicine - Primary Care 12/09/20 Abigail Díaz Ice Cream Server 04/21/23 01/03/24 documented as of this encounter
--- OUTSIDE RECORDS SUMMARY | 2024-05-31 07:25 | XMS_ITS | Encounter Summary ---
Author Organization [facility] Address [address] [place] [address] Care Team Providers Care Healthcare Receptionist Name Role Phone Carrington Calderon MD Primary Care Provi anders Encounter Details Date Type Department Care Team (Late st Contact Info) Description 03/14/2023 15:15 EDT Phlebotomy Only [facility] Laboratory Services - [address] [address] Seismic Prospecting SupervisorSouth [facility] [place] [place] Lab Type 2 diabetes mellitus with diabetic polyneuropathy, with long-term current use of insulin ([facility]); Night sweats; Lymphocytosis Social History [...] polyneuropathy, with long-term current use of insulin ([facility]) SLIDE REQUEST Routine 03/14/2023 15:19 EDT Night sweats Lymphocytosis COMPLETE BLOOD COUNT AND DIFFERENTIAL Routine 03/14/2023 15:19 EDT Type 2 diabetes mellitus with diabetic polyneuropathy, with long-term current use of insulin ([facility]) HEMOGLOBIN A1C Routine 03/14/2023 15:19 EDT Type 2 diabetes mellitus with diabetic polyneuropathy, with long-term current use of insulin ([facility]) BASIC METABOLIC PANEL (BMP) Routine 03/14/2023 15:19 EDT Type 2 diabetes mellitus with diabetic polyneuropathy, with long-term current use of insulin ([facility]) documented in this encounter Results * [...] and giant forms noted. 03/16/2023 12:25 EDT [facility] Blood VENOUS BLOOD / Unknown Venipuncture / Unknown 03/14/2023 15:19 EDT 03/16/2023 11:05 EDT Narrative [facility] - 03/16/2023 12:25 [...] HEMATOLOGY & PF4 OR DERABLES Final Result [facility] [address] [place] [phone] * (ABNORMAL) DIFFERENTIAL, AUTOMATED MANUAL (03/14/2023 15:19 EDT) % Neutrophils 48.7 % 03/14/2023 17:23 EDT [facility] % Lymphocytes 44.3 % 03/14/2023 17:23 EDT [facility] % Monocytes 4.4 % 03/14/2023 17:23 EDT [facility] % Eosinophils 1.7 % 03/14/2023 17:23 EDT [facility] % Basophils 0.9 % 03/14/2023 17:23 [facility] Absolute Neutrophils 8.80 2.20 - 8.85 K/cmm 03/14/2023 17:23 [facility] Absolute Lymphocytes 8.01(H) 1.09 - 3.30 K/cmm 03/14/2023 17:23 [facility] Absolute Monocytes 0.80 0.10 - 0.80 K/cmm 03/14/2023 17:23 [facility] Absolute Eosinophils 0.31 0.03 - 0.61 K/cmm 03/14/2023 17:23 [facility] ABS Basophils 0.16(H) 0.01 - 0.11 K/cmm 03/14/2023 17:23 [facility] Smudge Cells 03/14/2023 17:23 [facility] Comment:present Type of Differential: Manual 03/14/2023 17:23 [facility] Blood VENOUS BLOOD / Unknown Venipuncture / Unknown 03/14/2023 15:19 EDT 03/14/2023 15:19 EDT us Carrington Calderon MD HEMATOLOGY & PF4 OR DERABLES Final Result [facility] [address] [place] [address] * (ABNORMAL) COMPLETE BLOOD COUNT AND DIFFERENTIAL (03/14/2023 15:19 EDT) WBC 18.08(H) 4.00 - 12.40 K/cmm 03/14/2023 16:23 [facility] RBC 4.40 3.86 - 5.04 M/cmm 03/14/2023 16:23 [facility] Hemoglobin 14.0 11.6 - 15.2 g/dL 03/14/2023 16:23 [facility] HCT 40.6 34.9 - 44.4 % 03/14/2023 16:23 [facility] MCV 92 81 - 98 fL 03/14/2023 16:23 [facility] MCH 31.8 26.7 - 33.3 pg 03/14/2023 16:23 [facility] MCHC 34.5 32.1 - 35.9 g/dL 03/14/2023 16:23 [facility] RDW-CV 12.6 <14.7 % 03/14/2023 16:23 [facility] RDW-SD 42.6 <50.4 fl 03/14/2023 16:23 [facility] PLT 412(H) 141 - 377 K/cmm 03/14/2023 16:23 [facility] MPV 9.3(L) 9.5 - 12.7 fL 03/14/2023 16:23 [facility] Blood VENOUS BLOOD / Unknown Venipuncture / Unknown 03/14/2023 15:19 EDT 03/14/2023 15:19 EDT Carrington Calderon MD PACKAGES & DNA PROB E ORDERABLES Final Result [facility] [address] [place] [address] * (ABNORMAL) HEMOGLOBIN A1C (03/14/2023 15:19 EDT) Hemoglobin A1c 8.3(H) <5.7 % 03/14/2023 22:02 [facility] Comment: Glycemic Status References: Normal: ??<5.7% Pre-Diabetes: ??5.7% - 6.4% Diagnostic of Diabetes: ??> or = 6.5% (if confirmed) Est Avg Glucose 192 mg/dL 22:02 [facility] Comment:The eAG represents t he A1c result expressed as average glucose in mg/dL. Blood VENOUS BLOOD / Unknown Venipuncture / Unknown 03/14/2023 15:19 EDT 03/14/2023 15:19 EDT us Carrington Calderon MD CHEMISTRY & BLOOD G ORDERABLES Final Result [facility] [address] [place] [address] * (ABNORMAL) BASIC METABOLIC PANEL (BMP) (03/14/2023 15:19 EDT) Sodium 142 136 - 145 mmol/L 03/14/2023 16:50 [facility] Potassium 4.2 3.5 - 5.0 mmol/L 03/14/2023 16:50 [facility] Chloride 103 96 - 110 mmol/L 03/14/2023 16:50 [facility] CO2 Total 25 22 - 32 mmol/L 03/14/2023 16:50 [facility] Anion Gap 14 5 - 14 mmol/L 03/14/2023 16:50 [facility] Glucose 45(LL) 70 - 99 mg/dl 03/14/2023 16:50 [facility] Calcium 9.9 8.5 - 10.5 mg/dL 03/14/2023 16:50 [facility] BUN 11 10 - 26 mg/dL 03/14/2023 16:50 [facility] Creatinine 0.99 0.52 - 1.04 mg/dL 03/14/2023 16:50 [facility] eGFR 75 >60 mL/min/1.73 m2 03/14/2023 16:50 [facility] Blood VENOUS BLOOD / Unknown Venipuncture / Unknown 03/14/2023 15:19 EDT 03/14/2023 15:19 EDT us Carrington Calderon MD CHEMISTRY & BLOOD G ORDERABLES Final Result Performing Organization Address City/[facility]/ZIP Co de Phone Number [facility] [address] [place] [address] documented in this encounter Visit Diagnoses Diagnosis Type 2 diabetes mellitus with diabetic polyneuropathy, with long-term current use of insulin ([facility]) Night sweats Generalized hyperhidrosis Lymphocytosis Lymphocytosis (symptomatic) documented in this encounter Care Teams Healthcare Receptionist Relationship Specialty Start Date End Date Carrington Calderon MD 1 [facility] 1 [place] [address] PCP - General Internal Medicine - Primary Care 12/09/20 documented as of this encounter
--- OUTSIDE RECORDS SUMMARY | 2024-05-31 07:25 | XMS_ITS | Encounter Summary ---
Author Organization [facility] Address [address] [place] [address] Care Team Providers Care Beauty Sales Consultant Name Role Phone Carrington Calderon MD Primary Care Provi anders Reason for Referral * Consult (Routine/Next Available) - Closed Specialty Diagnoses / Procedures Referred By Kit goode Referred To Contact Diagnoses Cyclical vomiting Carrington Calderon MD Phone: tel: fax: Mallorie Martinez MD [address] [place] [phone] Phone: tel: fax: Referral ID Status Reason Start Date Expiration Date V isits Requested Visits Authorized [id number] Closed Specialty Services Required 03/16/2023 1 1 Question Answer Reason for Request: cyclic menstrual vomiting- LARC with suppression of menses [facility] Reason for Visit * Reason Comments Follow-up Diabetes Encounter Details Date Type Department Care Team ([facility] Contact Info) Description 03/16/2023 10:15 EDT Telemedicine [facility] Adult Primary Care - [address] [phone] Carrington Calderon MD 1 [facility] Level 1 [place] [phone] Cyclical vomiting (Primary Dx); Anxiety and depression; Type 2 diabetes mellitus with diabetic polyneuropathy, with long-term current use of insulin ([facility]) (HCC); Night sweats; Lymphocytosis; Abnormal TSH [...] Home Patient location state: Visit Location State: [place] The location of the provider: Office Provider location state: Visit Location State: [place] The following people and their roles were [...] polyneuropathy, with long-term current use of insulin ([facility]) ([facility]): Stella is in need of new Dexcom supplies. I sent a prescription to her pharmacy. I will alsosend her an invite through [facility] so that I am able to review [...] has a stepdaughter who she has raised bit tripoler since age 4. All 3 children have [...] 16.01(H) 4.00 - 12.40 K/cmm 03/17/2023 14:47 [facility] RBC 4.25 3.86 - 5.04 M/cmm 03/17/2023 14:47 [facility] Hemoglobin 13.8 11.6 - 15.2 g/dL 03/17/2023 14:47 [facility] HCT 39.0 34.9 - 44.4 % 03/17/2023 14:47 [facility] MCV 92 81 - 98 fL 03/17/2023 14:47 [facility] MCH 32.5 26.7 - 33.3 pg 03/17/2023 14:47 [facility] MCHC 35.4 32.1 - 35.9 g/dL 03/17/2023 14:47 [facility] RDW-CV 12.7 <14.7 % 03/17/2023 14:47 [facility] RDW-SD 42.2 <50.4 fl 03/17/2023 14:47 [facility] PLT 435(H) 141 - 377 K/cmm 03/17/2023 14:47 [facility] MPV 9.5 9.5 - 12.7 fL 03/17/2023 14:47 [facility] % Neutrophils 44.3 % 03/17/2023 14:47 [facility] % Lymphocytes 44.1 % 03/17/2023 14:47 [facility] % Monocytes 7.4 % 03/17/2023 14:47 [facility] % Eosinophils 3.3 % 03/17/2023 14:47 [facility] % Basophils 0.6 % 03/17/2023 14:47 [facility] % Immature Grans 0.3 % 03/17/20 14:47 [facility] Absolute Neutrophils 7.09 2.20 - 8.85 K/cmm 03/17/2023 14:47 [facility] Absolute Lymphocytes 7.06(H) 1.09 - 3.30 K/cmm 03/17/2023 14:47 [facility] Absolute Monocytes 1.19(H) 0.10 - 0.80 K/cmm 03/17/2023 14:47 [facility] Absolute Eosinophils 0.53 0.03 - 0.61 K/cmm 03/17/2023 14:47 [facility] ABS Basophils 0.09 0.01 - 0.11 K/cmm 03/17/2023 14:47 [facility] Absolute Immature Grans 0.05 0.00 - 0.06 K/cmm 03/17/2023 14:47 [facility] Type of Differential: Auto 03/17/2023 14:47 [facility] Blood VENOUS BLOOD / Unknown Venipuncture / Unknown 03/17/2023 13:52 EDT 03/17/2023 13:52 EDT us Carrington Calderon MD PACKAGES & DNA PROB E ORDERABLES Final Result [facility] [address] [place] [address] * LEUKEMIA/LYMPHOMA PANEL BY FLOW CYTOMETRY (03/17/2023 13:52 EDT) Final Immunophenotypic Interpretation Peripheral blood, flow cytometric analysis: - No immunophenotypic evidence of a clonal cell population. See comment. 12:55 [facility] Comment The results of flow cytometry show no immunophenotypic evidence of involvement by a clonal lymphoproliferative disorder. Correlation of these findings with morphologic and clinical data is essential. 3 12:55 [facility] Attestation By the signature below, the attending physician certifies that they have 1) personally conducted a gross and/or microscopic examination of the described specimen(s), and/or personally interpreted the results of laboratory testing of the described specimen(s), and 2) personally rendered or confirmed the above diagnosis. 3 12:55 [facility] at 1255 Clinical History night sweats, lymphocytosis, smudge cells 3 12:55 [facility] Description The specimen consists [...] There is no increase in blasts. 12:55 [facility] Flow Markers CD10, CD117, CD11c, CD16, CD19, CD20, CD3, CD33, CD34, CD38, CD4, CD45, CD5, CD56, CD8, HLA-DR, [place], and Lambda 3 12:55 [facility] FDA Disclaimer This test was developed and its performance characteristics determined by the Department of Pathology and Laboratory Medicine, [facility], [place], [place] It has not been cleared or [...] complexity clinical laboratory testing. 3 12:55 EDT [facility] Sample Analyzed Date and Time 03/18/23 at 1106 3 12:55 EDT [facility] Scanned Images 3 12:55 EDT [facility] Blood VENOUS BLOOD / Unknown Venipuncture / Unknown 03/17/2023 13:52 EDT 03/17/2023 13:52 EDT Carrington Calderon MD PATHOLOGY ORDERABLE S Final Result Performing Organization Address City/[facility]/ZIP Co de Phone Number [facility] [address] [place] [address] * THYROID-STIMULATING IMMUNOGLOBULIN (TSI), SERUM (03/14/2023 15:19 EDT) Thyroid-Stimulati ng Immunoglobin, S <1.0 <=1.3 TSI index 03/25/2023 15:55 EDT [facility] Comment: Test Performed by: [facility] [address] [place] [id number] Drum Cleaner: Wiley Fry M.D. Ph.D.; CLIA# [id number] Blood VENOUS BLOOD / Unknown Venipuncture / Unknown 03/14/2023 15:19 EDT 03/18/2023 16:07 EDT Carrington Calderon MD CHEMISTRY & BLOOD G ORDERABLES Final Result [facility] [address] [place] [address] * T3, TOTAL (03/14/2023 15:19 EDT) T3, Total 143 97 - 169 ng/dL 03/16/2023 15:56 EDT [facility] Blood VENOUS BLOOD / Unknown Venipuncture / Unknown 03/14/2023 15:19 EDT 03/14/2023 15:19 EDT Carrington Calderon MD CHEMISTRY & BLOOD G ORDERABLES Final Result Performing Organization Address City/[facility]/ZIP Co de Phone Number [facility] [address] [place] [address] * T4 FREE (03/14/2023 15:19 EDT) T4, Free 1.3 0.8 - 2.2 ng/dL 03/16/2023 14:42 EDT [facility] Blood VENOUS BLOOD / Unknown Venipuncture / Unknown 03/14/2023 15:19 EDT 03/14/2023 15:19 EDT Carrington Calderon MD CHEMISTRY & BLOOD G ORDERABLES Final Result Performing Organization Address [facility] de Phone Number [facility] [address] [place] [address] * (ABNORMAL) THYROID CASCADE (03/14/2023 15:19 EDT) Pathologist [facility] TSH 0.44(L) 0.47 - 4.68 mIU/L 03/16/2023 14:03 EDT [facility] Comment:Turbid sample identi fied, interpret with caution as turbidity may affect result. Blood VENOUS BLOOD / Unknown Venipuncture / Unknown 03/14/2023 15:19 EDT 03/14/2023 15:19 EDT Narrative [facility] - 03/16/2023 14:03 EDT NOTE: The results of this assay can be falsely lowered due to the consumption of Biotin. Carrington Calderon MD CHEMISTRY & BLOOD G ORDERABLES Final Result Performing Organization Address [facility] Co de Phone Number [facility] [address] [place] [address] documented in this encounter Visit Diagnoses Diagnosis [...] documented as of this encounter Care Teams Beauty Sales Consultant Relationship Specialty Start Date End Date Carrington Calderon MD 1 [facility] Level 1 [place] [phone] PCP - General Internal Medicine - Primary Care 12/09/20 documented as of this encounter
--- OUTSIDE RECORDS SUMMARY | 2024-05-31 07:25 | XMS_ITS | Encounter Summary ---
Author Organization [facility] Address [address] [place] [address] Care Team Providers Care Global Analytics Head Name Role Phone Carrington Calderon MD Primary Care Provi anders Reason for Visit * Reason Onset Date Comments Medications Refill 03/16/2023 Encounter Details Date Type Department Care Team (Late st Contact Info) Description 03/16/2023 Refill [facility] Adult Primary Care [address] [phone] Carrington Calderon MD 1 [facility] Level 1 [place] [address] Medications Refill Social History Tobacco [...] 0946 EDT omeprazole (PRILOSEC) 20 mg capsule [[id number]] ?? Order Details Dose: 20 mg Route: oral Frequency: DAILY Dispense Quantity: 90 Capsule Refills: 3 ?? Sig: Take 1 Capsule by mouth daily. ?? Start Date: 12/17/22 End Date: -- Written Date: 12/17/22 ondansetron (ZOFRAN-ODT) 4 mg disintegrating tablet [[id number]] ?? Order Details Dose: 4 mg Route: oral Frequency: EVERY 8 HOURS PRN for Nausea Dispense Quantity: 30 Tablet Refills: 11 ?? Sig: Take 1 Tablet by mouth every 8 hours as needed for Nausea. ?? Start Date: 11/17/22 End Date: -- Written Date: 11/17/22 Expiration Date: -- ?? insulin glargine (LANTUS SOLOSTAR/SEMGLEE) 100 unit/mL (3 mL) injection pen [[id number]] ?? Order Details Dose: 40 Units Route: subcutaneous Frequency: AT BEDTIME Dispense Quantity: 36 mL Refills: 4 ?? Sig: Inject 40 Units into the skin at bedtime. ?? Start Date: 11/17/22 End Date: -- Written Date: 11/17/22 LORazepam (ATIVAN) 0.5 mg tablet [[id number]] ?? Order Details Dose: 0.5 mg Route: oral Frequency: DAILY PRN for Anxiety Dispense Quantity: 30 Tablet Refills: 3 ?? Sig: Take 1 Tablet by mouth daily as needed for Anxiety. ??Daily Max: 0.5 mg ?? Start Date: 11/17/22 End Date: -- Written Date: 11/17/22 Expiration Date: 05/16/23 ?? * Telephone Encounter - Eryn Pack RN - 03/16/2023 2093 EDTFrom: Cristy Luo To: Office of Carrington Calderon MD Sent: 03/16/2023 9:35 EDT Subject: Medication Renewal Request Refills have been requested for the following medications: LORazepam (ATIVAN) 0.5 mg tablet [Carrington Calderon] insulin glargine (LANTUS SOLOSTAR/SEMGLEE) 100 unit/mL (3 mL) injection pen [Carrington Calderon] ondansetron (ZOFRAN-ODT) 4 mg disint egrating tablet [Carrington Calderon] omeprazole (PRILOSEC) 20 mg capsule [Carrington Calderon] Preferred pharmacy: [facility] [address] [place] [address] documented in this encounter Plan of Treatment Not on file documented as of this encounter Visit Diagnoses Diagnosis Anxiety Anxiety state, unspecified Type 2 diabetes mellitus with diabetic polyneuropathy, with long-term current use of insulin ([facility]) Gastroparesis documented in this encounter Care Teams Global Analytics Head Relationship Specialty Start Date End Date Carrington Calderon MD 1 [facility] 1 [place] [address] PCP - General Internal Medicine - Primary Care 12/09/20 documented as of this encounter
--- OUTSIDE RECORDS SUMMARY | 2024-05-31 07:25 | XMS_ITS | Encounter Summary ---
Author Organization [facility] Address [address] [place] [address] Care Team Providers Care Digital Content Manager Name Role Phone Carrington Calderon MD Primary Care Provi anders Reason for Visit * Reason Comments Med Change Request Encounter Details Date Type Department Care Team (Late st Contact Info) Description 12/20/2022 Refill [facility] Adult Primary Care [facility] 1 [place], [place] [phone] Carrington Calderon MD 1 [facility] Level 1 [place] [address] Med Change Request Social History [...] 1215 EDT prochlorperazine (COMPAZINE) 25 mg suppository [[id number]] ?? Order Details Dose: 25 mg Route: [...] vomiting documented in this encounter Care Teams Digital Content Manager Relationship Specialty Start Date End Date Carrington Calderon MD 1 [facility] 1 [place] [address] PCP - General Internal Medicine - Primary Care 12/09/20 documented as of this encounter
--- OUTSIDE RECORDS SUMMARY | 2024-05-31 07:26 | XMS_ITS | Encounter Summary ---
Author Organization [facility] Address [address] [place] [address] Care Team Providers Care Lock Master Name Role Phone Carrington Calderon MD Primary Care Provi anders Abigail Díaz Unavailable Carmelo Hendrickson Unavailable Unavailable Abigail Díaz Unavailable Reason for Visit * Reason Onset Date Comments Prior Auth, Medication 11/18/2022 Encounter Details Date Type Department Care Team (Late st Contact Info) Description 11/18/2022 Telephone [facility] Adult Primary Care - [address] [phone] Carrington Calderon MD 1 [facility] Level [address] [place] [phone] Prior Auth, Medication Social History Tobacco Use [...] polyneuropathy, with long-term current use of insulin ([facility]) Inject 8-14 Units into [...] 100 unit/mL (3 mL) injectable pen Mejia: [id number] documented in this encounter Plan of Treatment Not on file documented as of this encounter Visit Diagnoses Diagnosis Type 2 diabetes mellitus with diabetic polyneuropathy, with long-term current use of insulin ([facility])- Primary documented in this [...] documented as of this encounter Care Teams Lock Master Relationship Specialty Start Date End Date Carrington Calderon MD 1 [facility] Level 1 [place] [phone] PCP - General Internal Medicine - Primary Care 12/09/20 Abigail Díaz Restaurant Inspector 04/21/23 01/03/24 Carmelo Hendrickson Coordinator 12/01/23 Abigail Díaz Restaurant Inspector 01/04/24 documented as of this encounter
--- OUTSIDE RECORDS SUMMARY | 2024-05-31 07:26 | XMS_ITS | Encounter Summary ---
Author Organization [facility] Address [address] [place] [address] Care Team Providers Care Gas Operations Analyst Name Role Phone Carrington Calderon MD Primary Care Provi anders Reason for Visit * Reason Onset Date Comments Medications Refill 01/11/2022 Encounter Details Date Type Department Care Team (Late st Contact Info) Description 01/11/2022 Refill [facility] Adult Primary Care [address] [phone] Carrington Calderon MD 1 [facility] Level 1 [place] [phone] Medications Refill Social History Tobacco [...] documented as of this encounter Care Teams Gas Operations Analyst Relationship Specialty Start Date End Date Carrington Calderon MD 1 [facility] 1 [place] [phone] PCP - General Internal Medicine - Primary Care 12/09/20 documented as of this encounter
--- OUTSIDE RECORDS SUMMARY | 2024-05-31 07:26 | XMS_ITS | Encounter Summary ---
Author Organization [facility] Address [address] [place] [address] Care Team Providers Care Extrusion Die Coordinator Name Role Phone Carrington Calderon MD Primary Care Provi anders Reason for Visit * Reason Onset Date Comments Medication Problem 01/14/2022 Encounter Details Date Type Department Care Team (Late st Contact Info) Description 01/14/2022 Telephone [facility] Adult Primary Care [facility] 1 [place], [place] [address] Carrington Calderon MD 1 [facility] Level 1 [place] [phone] Medication Problem Social History Tobacco [...] filedocumented in this encounter Care Teams Extrusion Die Coordinator Relationship Specialty Start Date End Date Carrington Calderon MD 1 [facility] 1 [place] [phone] PCP - General Internal Medicine - Primary Care 12/09/20 documented as of this encounter
--- OUTSIDE RECORDS SUMMARY | 2024-05-31 07:26 | XMS_ITS | Encounter Summary ---
Author Organization [facility] Address [address] [place] [address] Care Team Providers Care Mandate Retail Service Merchandiser Name Role Phone Carrington Calderon MD Primary Care Provi anders Reason for Visit * Reason Onset Date Comments Medications Refill 11/30/2021 Encounter Details Date Type Department Care Team (Late st Contact Info) Description 11/30/2021 Refill [facility] Adult Primary Care [address] [phone] Carrington Calderon MD 1 [facility] Level 1 [place] [phone] Medications Refill Social History Tobacco [...] on filedocumented in this encounter Care Teams Mandate Retail Service Merchandiser Relationship Specialty Start Date End Date Carrington Calderon MD 1 [facility] 1 [place] [phone] PCP - General Internal Medicine - Primary Care 12/09/20 documented as of this encounter
--- OUTSIDE RECORDS SUMMARY | 2024-05-31 07:26 | XMS_ITS | Encounter Summary ---
Author Organization [facility] Address [address] [place] [address] Care Team Providers Care Ballaster Name Role Phone Carrington Calderon MD Primary Care Provi anders Reason for Visit * Reason Onset Date Comments Prior Auth, Medication 09/04/2022 Encounter Details Date Type Department Care Team (Late st Contact Info) Description 09/04/2022 Telephone [facility] Adult Primary Care [address] [address] Carrington Calderon MD 1 [facility] Level [address] [place] [phone] Prior Auth, Medication Social History Tobacco [...] Q54A Group name: [employer] BIN: [id number] PCN: PA has been completed via ePa Awaiting reply documented in this encounter Plan of Treatment Not on file documented as of this encounter Visit Diagnoses Not on filedocumented in this encounter Care Teams Ballaster Relationship Specialty Start Date End Date Carrington Calderon MD 1 [facility] 1 [place] [phone] PCP - General Internal Medicine - Primary Care 12/09/20 documented as of this encounter
--- OUTSIDE RECORDS SUMMARY | 2024-05-31 07:26 | XMS_ITS | Encounter Summary ---
Author Organization [facility] Address [address] [place] [address] Care Team Providers Care Bar Pointer Name Role Phone Carrington Calderon MD Primary Care Provi anders Reason for Visit * Reason Comments Medication Management Follow-up Encounter Details Date Type Department Care Team (Late st Contact Info) Description 01/29/2022 11:00 EDT Telemedicine [facility] Adult Primary Care - [address] [phone] Carrington Calderon MD 1 [employer] Level 1 [place] [phone] Gastroparesis (Primary Dx); Tobacco use; Type 2 diabetes mellitus with diabetic polyneuropathy, with long-term current use of insulin ([facility]) ([facility]); Chronic midline low back pain without sciatica; [...] ([facility]) Inject 1 Kit into the skin every [...] insulin ([facility]) ([facility]): Diabetes remains uncontrolled per her most recent A1C of 9.7. According to her description, I am concerned that an increase in her Lantus dose could lead to dangerous hypoglycemia. I asked that she post her freestyle mitul data on [employer] for my review. She states that she [...] system when she attempted to go at [facility]. I have asked my staff to follow-up [...] symptoms. She was seen in September in [facility] emergency department for diabetic foot infection. She [...] was infected. She was referred to a firestop/containment worker up in the [facility] and was treated with topical and [...] polyneuropathy, with long-term current use of insulin ([facility]) Chronic midline low back pain without [...] documented as of this encounter Care Teams Bar Pointer Relationship Specialty Start Date End Date Carrington Calderon MD 1 [facility] 1 [place] [phone] PCP - General Internal Medicine - Primary Care 12/09/20 documented as of this encounter
--- OUTSIDE RECORDS SUMMARY | 2024-05-31 07:26 | XMS_ITS | Encounter Summary ---
Author Organization [facility] Address [address] [place] [address] Care Team Providers Care Wardrobe Technician Name Role Phone Carrington Calderon MD Primary Care Provi anders Abigail Díaz Unavailable [phone] Carmelo Hendrickson Unavailable Unavailable Abigail Díaz Unavailable Reason for Visit * Reason Onset Date Comments Appointment Related 03/30/2022 Encounter Details Date Type Department Care Team (Late st Contact Info) Description 03/30/2022 Telephone [facility] Endocrinology - [address] [address] Lizette Veloz RPH Appointment Related [...] 1317 EDT ----- Message from Lizette Veloz [facility] sent at 03/16/2022 14:47 EDT ----- Dr. [...] on filedocumented in this encounter Care Teams Wardrobe Technician Relationship Specialty Start Date End Date Carrington Calderon MD 1 [facility] 1 [place] [phone] PCP - General Internal Medicine - Primary Care 12/09/20 Abigail Díaz Roast Master 04/21/23 01/03/24 Carmelo Hendrickson Coordinator 12/01/23 Abigail Díaz Roast Master 01/04/24 documented as of this encounter
--- OUTSIDE RECORDS SUMMARY | 2024-05-31 07:26 | XMS_ITS | Encounter Summary ---
Author Organization [facility] Address [address] [place] [address] Care Team Providers Care Diesel Machinist Name Role Phone Carrington Calderon MD Primary Care Provi anders Encounter Details Date Type Department Care Team (Late st Contact Info) Description 01/13/2022 Patient Outreach [facility] Adult Primary Care - [place] 1 [place], [place] [address] Amrita Asencio Social History Tobacco Use Types [...] * Amrita Asencio - 01/13/2022 1537 EDT [facility] Classroom Instructional Aide Care Coordination Classroom Instructional Aide spoke with Stella on phone in order [...] 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 PLAN: it disaster recovery manager reviewed current mental health resources with Stella including local counseling options within their insurance network; online counseling platforms; online therapist directories; self-help resources; support groups; and local and national mental health crisis information. AMRITA ASENCIO 01/13/2022 15:38 documented in this encounter Plan of Treatment Not on file documented as of this encounter Visit Diagnoses Not on filedocumented in this encounter Care Teams Diesel Machinist Relationship Specialty Start Date End Date Carrington Calderon MD 1 [facility] Level 1 [place] [phone] PCP - General Internal Medicine - Primary Care 12/09/20 documented as of this encounter
--- OUTSIDE RECORDS SUMMARY | 2024-05-31 07:26 | XMS_ITS | Encounter Summary ---
Author Organization [facility] Address [address] [place] [address] Care Team Providers Care Imagery Analyst Name Role Phone Carrington Calderon MD Primary Care Provi anders Reason for Visit * Reason Comments Medications Refill Encounter Details Date Type Department Care Team (Late st Contact Info) Description 10/15/2022 Refill [facility] Adult Primary Care [facility] 1 [place], [place] [address] Carrington Calderon MD 1 [facility] Level 1 [place] [phone] Medications Refill Social History Tobacco [...] with type 2 diabetes mellitus ([facility]) TAKE 1 CAPSULE BY MOUTH IN [...] documented as of this encounter Care Teams Imagery Analyst Relationship Specialty Start Date End Date Carrington Calderon MD 1 [facility] 1 [place] [phone] PCP - General Internal Medicine - Primary Care 12/09/20 documented as of this encounter
--- OUTSIDE RECORDS SUMMARY | 2024-05-31 07:26 | XMS_ITS | Encounter Summary ---
Author Organization [facility] Address [address] [place] [address] Care Team Providers Care Family Coach Name Role Phone Carrington Calderon MD Primary Care Provi anders Encounter Details Date Type Department Care Team (Late st Contact Info) Description 12/04/2021 Orders Only [facility] Adult Primary Care - [place] 1 [place], [place] [phone] Carrington Calderon MD 1 [facility] 1 [place] [phone] Social History Tobacco Use Types [...] documented as of this encounter Care Teams Family Coach Relationship Specialty Start Date End Date Carrington Calderon MD 1 [facility] Level 1 [place] [phone] PCP - General Internal Medicine - Primary Care 12/09/20 documented as of this encounter
--- OUTSIDE RECORDS SUMMARY | 2024-05-31 07:26 | XMS_ITS | Encounter Summary ---
Author Organization [facility] Address [address] [place] [address] Care Team Providers Care Radio Disc Jockey Name Role Phone Carrington Calderon MD Primary [...] Expiration Date V isits Requested Visits Authorized [id number] Closed Specialty Services Required 11/17/2022 1 1 Question Answer Reason for Request: bilateral knee and low back pain [facility] [place] [facility] [place] Reason for Visit * Reason Comments Annual Exam Encounter Details Date Type Department Care Team (Late st Contact Info) Description 11/17/2022 10:30 EDT Office Visit [facility] Adult Primary Care - [place] 1 [place], [place] [phone] Carrington Calderon MD 1 [facility] Level 1 [place] [phone] Visit for preventive health examination (Primary Dx); [...] of Assessment Author No 10/02/2020 23:50 EDT Panola, Krist in, RN * Because of a [...] current use of insulin ([facility]) Inject 40 Units into the skin at [...] type 2 diabetes mellitus ([facility]) Take 1 Capsule by mouth every morning AND 3 Capsules at bedtime. 360 Capsule 4 11/17/2022 4 SITagliptin phosphate (JANUVIA) 100 mg tabletIndications:Ty pe 2 diabetes mellitus with diabetic polyneuropathy, with long-term current use of insulin ([facility]) Take 1 Tablet by mouth daily. [...] polyneuropathy, with long-term current use of insulin ([facility]) ([facility]): Empagliflozin was stopped recently in the setting [...] HEMOGLOBIN A1C - THYROID CASCADE - URINE LJOSOKA-JR-GXLSBIHPUD RATIO (ACR) Gastroparesis: Refilled omeprazole and ondansetron. - omeprazole (PRILOSEC) 20 mg capsule - ondansetron (ZOFRAN-ODT) 4 mg disintegrating tablet Diabetic polyneuropathy associated with type 2 diabetes mellitus ([facility]) ([facility]): Continue gabapentin. She is comfortable with this [...] minutes today in chart review, care coordination, [id number] time with the patient independent of preventive care. Return for 1 month, diabetes and mood, 3 months, diabetes and mood , vid or FTF OK, same day ok. Patient education was direct. Barriers were assessed and addressed as needed. Alejandrina Douglas is a 37 y.o. female presenting with Annual Exam HPI Last visit with me was in January of last year via televMailLifto. NicoDerm patch was prescribed to assist with [...] polyneuropathy, with long-term current use of insulin ([facility]) Gastroparesis Diabetic polyneuropathy associated with type 2 diabetes mellitus ([facility]) Chronic low back pain, unspecified back pain [...] current use of insulin ([facility]) Inject 40 Units into the skin at [...] type 2 diabetes mellitus ([facility]) TAKE 1 CAPSULE BY MOUTH IN THE [...] 11/17/2022 documented in this encounter Care Teams Radio Disc Jockey Relationship Specialty Start Date End Date Carrington Calderon MD 1 [facility] Level 1 [place] [phone] PCP - General Internal Medicine - Primary Care 7/6/21 documented as of this encounter
--- OUTSIDE RECORDS SUMMARY | 2024-05-31 07:26 | XMS_ITS | Encounter Summary ---
Author Organization [facility] Address [address] [place] [address] Care Team Providers Care Extension Service Specialist Name Role Phone Carrington Calderon MD Primary Care Provi anders Reason for Visit * Reason Onset Date Comments No Show 04/02/2022 Encounter Details Date Type Department Care Team (Late st Contact Info) Description 04/02/[address] [facility] Adult Primary Care [facility] 1 [place], [place] [phone] Carrington Calderon MD 1 [facility] Level 1 [place] [phone] No Show Social History Tobacco [...] Telephone Encounter - Kamini Raya - 04/02/2022 0922 EDT 04/01/2022 Patient was a no show for a f/u for chronic pain/DM with Dr. Calderon. Called patient, but VM was full and could not leave a message. Also sent a Zoomabet message to contact the office to reschedule missed appt if she would like. 1st no show letter sent. Patient has had 2 missed no show appointments in last 12 months. 04/01/2022, 12/21/2021 and 09/28/2021. documented in this encounter Plan of Treatment Not on file documented as of this encounter Visit Diagnoses Not on filedocumented in this encounter Care Teams Extension Service Specialist Relationship Specialty Start Date End Date Carrington Calderon MD 1 [facility] Level 1 [place] [phone] PCP - General Internal Medicine - Primary Care 12/09/20 documented as of this encounter
--- OUTSIDE RECORDS SUMMARY | 2024-05-31 07:26 | XMS_ITS | Encounter Summary ---
Author Organization [facility] Address [address] [place] [address] Care Team Providers Care Projection Technician Name Role Phone Carrington Calderon MD Primary Care Provi anders Abigail Díaz Unavailable [phone] Carmelo Hendrickson Unavailable Unavailable Abigail Díaz Unavailable Encounter Details Date Type Department Care Team (Late st Contact Info) Description 01/26/2022 Orders Only [facility] Adult Primary Care - [address] [phone] Carrington Calderon MD 1 [facility] Level 1 [place] [address] Type 2 diabetes mellitus with diabetic polyneuropathy, with long-term current use of insulin ([facility] ([facility]) (Primary Dx) Social History Tobacco [...] polyneuropathy, with long-term current use of insulin ([facility])- Primary documented in this encounter Care Teams Projection Technician Relationship Specialty Start Date End Date Carrington Calderon MD 1 [facility] 1 [place] [phone] PCP - General Internal Medicine - Primary Care 12/09/20 Abigail Díaz Bench Scientist 04/21/23 01/03/24 Carmelo Hendrickson Coordinator 12/01/23 Abigail Díaz Bench Scientist 01/04/24 documented as of this encounter
--- OUTSIDE RECORDS SUMMARY | 2024-05-31 07:26 | XMS_ITS | Encounter Summary ---
Author Organization [facility] Address [address] [place] [address] Care Team Providers Care Business Support Manager Name Role Phone Carrington Calderon MD Primary Care Provi anders Abigail Díaz Unavailable [phone] Carmelo Hendrickson Unavailable Unavailable Abigail Díaz Unavailable Reason for Visit * Reason Onset Date Comments Appointment Related 03/17/2022 Encounter Details Date Type Department Care Team (Late st Contact Info) Description 03/17/2022 Telephone [facility] Endocrinology - [facility] [address] [place] [address] Zulma Cross, GUSTAVO [address] [facility] [address] [place] [address] Appointment Related Social History Tobacco [...] anytime after 06/16/22 Recall Letter Sent thru [employer] Also: Left voicemail to schedule 6 month Follow Up appointment with Dr. Eryn Mims Patient is due anytime after 09/14/22 Recall Letter Sent thru [employer] Please schedule both appointments documented in this encounter Plan of Treatment Not on file documented as of this encounter Visit Diagnoses Not on filedocumented in this encounter Care Teams Business Support Manager Relationship Specialty Start Date End Date Carrington Calderon MD [address] [place] [address] 1 [place] [phone] PCP - General Internal Medicine - Primary Care 12/09/20 Abigail Díaz Ping Pong Table Assembler 04/21/23 01/03/24 Carmelo Hendrickson Coordinator 12/01/23 Abigail Díaz Ping Pong Table Assembler 01/04/24 documented as of this encounter
--- OUTSIDE RECORDS SUMMARY | 2024-05-31 07:26 | XMS_ITS | Encounter Summary ---
Author Organization [facility] Address [address] [place] [address] Care Team Providers Care Arabic Teacher Name Role Phone Carrington Calderon MD Primary Care Provi anders Reason for Visit * Reason Onset Date Comments Emesis 11/16/2021 24 hours- vomitt ing/ toe infection Encounter Details Date Type Department Care Team (Late st Contact Info) Description 11/16/2021 Telephone [facility] Adult Primary Care - [address] [phone] Carrington Calderon MD 1 [facility] Level 1 [place] [address] Emesis (24 hours- vomitting/ toe [...] of Assessment Author No 10/02/2020 23:50 River Cavanuagh RN * Because of a physical, mental, [...] going home to take her to the [facility] ED. Let him know that PCP's last OV note stated that pt should be seen in an OV if vomiting for more than 24 hours. He reports they would like a referral to the foot Dr, normally goes to [facility]. (Looks like pt missed OV.)They will [...] last seen 06/11/21. Also missed OV at [facility]. * Telephone Encounter - Olive uMnguia - 11/16/2021 1033 EDT Reason for Call: [...] on filedocumented in this encounter Care Teams Arabic Teacher Relationship Specialty Start Date End Date Carrington Calderon MD 1 [facility] Level 1 [place] [address] PCP - General Internal Medicine - Primary Care 12/09/20 documented as of this encounter
--- OUTSIDE RECORDS SUMMARY | 2024-05-31 07:26 | XMS_ITS | Encounter Summary ---
Author Organization [facility] Address [address] [place] [address] Care Team Providers Care Tierce Filler Name Role Phone Carrington Calderon MD Primary Care Provi anders Reason for Visit * Reason Onset Date Comments Results 03/30/2022 Encounter Details Date Type Department Care Team (Late st Contact Info) Description 03/30/2022 Telephone [facility] Adult Primary Care [facility] 1 [place], [place] [address] Carrington Calderon MD [address] [facility] Level 1 [place] [address] Results Social History Tobacco Use [...] Record ed How often does anyone, audrey awldron family, hit, punch or physically hurt you? [...] that her lumbar spine x-ray done at [facility] shows some mild arthritis throughout [...] Filler Relationship Specialty Start Date End Date Carrington Calderon MD [address] [facility] Level 1 [place] [phone] PCP - General Internal Medicine - Primary Care 12/09/20 documented as of this encounter
--- OUTSIDE RECORDS SUMMARY | 2024-05-31 07:26 | XMS_ITS | Encounter Summary ---
Author Organization [facility] Address [address] [place] [address] Care Team Providers Care Counselor Education Professor Name Role Phone Carrington Calderon MD Primary Care Provi anders Abigail Díaz Unavailable [phone] Carmelo Hendrickson Unavailable Unavailable Abigail Díaz Unavailable [phone] Encounter Details Date Type Department Care Team (Late st Contact Info) Description 06/01/2022 Lab Requisition [facility] Pathology & Laboratory Medicine - [address] [address] Ester Gabriel [address] [place] [address] Encounter for other general examination [...] explore management options, if applicable. 06/15/2022 11:18 [facility] Final Diagnosis A. 3RD TOE, LEFT FOOT, ? DISTAL? , AMPUTATION: - Skin with ulceration and gangrenous necrosis. - Bone with remodeling changes and patchy chronic inflammation. See comment. 06/15/2022 11:18 [facility] Diagnosis Comment Overall, the findings are nonspecific but could be compatible with chronic osteomyelitis in the appropriate clinical setting. The disarticulation margin is grossly unremarkable. Histologic features diagnostic of acute osteomyelitis are not seen in the patient services representative sections submitted. 06/15/2022 11:18 [facility] Attestation There was significant resident/fellow involvement in the diagnostic evaluation of this case. By the signature below, the attending physician certifies that they have personally conducted a gross and/or microscopic examination of the described specimens and rendered or confirmed the above diagnosis. 06/15/2022 11:18 [facility] at 1118 Clinical History Osteomyelitis 06/15/2022 11:18 [facility] Gross Description A. Received [...] viable. The proximal margin is inked blue. Last Marker sections are submitted following acid decalcification as follows: BLOCK SHIELDS A1- bone underlying eschar A2- proximal soft tissue margin Carrington Bravo MD 06/01/2022 15:00 06/15/2022 11:18 [facility] Resident/Cash w: Carrington Braov MD 06/15/2022 11:18 [facility] Performing Lab [facility] 11:18 [facility] Scanned Images 06/15/2022 11:18 [facility] Tissue TRAUMATIC AMPUTATION OF UPPER LIMB / Unknown 05/28/2022 7:50 EST 06/01/2022 8:27 EST us Ester Gabriel PATHOLOGY ORDERABLES Final Resul t [facility] [address] [place] [address] documented in this encounter Visit Diagnoses Diagnosis Encounter for other general examination documented in this encounter Care Teams Counselor Education Professor Relationship Specialty Start Date End Date Carrington Calderon MD 1 [facility] 1 [place] [phone] PCP - General Internal Medicine - Primary Care 12/09/20 Abigail Díaz Box Car Washer 04/21/23 01/03/24 Carmelo Hendrickson Coordinator 12/01/23 Abigail Díaz Box Car Washer 01/04/24 documented as of this encounter
--- OUTSIDE RECORDS SUMMARY | 2024-05-31 07:26 | XMS_ITS | Encounter Summary ---
Author Organization [facility] Address [address] [place] [address] Care Team Providers Care Keg Inspector Name Role Phone Carrington Calderon MD Primary Care Provi anders Abigail Díaz Unavailable [phone] Carmelo Hendrickson Unavailable Unavailable Abigail Díaz Unavailable [phone] Encounter Details Date Type Department Care Team (Late st Contact Info) Description 10/27/2022 Lab Requisition [facility] Pathology & Laboratory Medicine - [address] [address] Dale Collier MD [address] [place] [address] [place], [place] [phone] Nausea; Vomiting, unspecified Social History Tobacco Use [...] explore management options, if applicable. 11/02/2022 17:09 [facility] Final Diagnosis A. DUODENUM, BIOPSY: - Enteric mucosa with no significant diagnostic abnormality. B. STOMACH, ANTRUM, BIOPSY: - Antral-type mucosa with chemical (reactive) gastropathy. C. GASTROESOPHAGEAL JUNCTION, BIOPSY: - Active esophagitis with ulcer. - GMS stain is negative for fungal hyphae within squamous epithelium. - Negative for viral cytopathic effect. - No pill fragments identified. - See comment. 11/02/2022 17:09 [facility] Diagnosis Comment Safety Analyst slides of this case were reviewed at the gastrointestinal/li skyla intradepartmental consultation conference. (, KT, RW) 11/02/2022 17:09 [facility] Attestation By the signature below, the attending physician certifies that they have 1) personally conducted a gross and/or microscopic examination of the described specimen(s), and/or personally interpreted the results of laboratory testing of the described specimen(s), and 2) personally rendered or confirmed the above diagnosis. 11/02/2022 17:09 [facility] at 1709 Clinical History Nausea and vomiting, history of gastroparesis; duodenitis, esophagitis 11/02/2022 17:09 [facility] Gross Description A. Received in [...] C1. EUNICE GEE(ASCP) 10/27/2022 18:08 11/02/2022 17:09 [facility] Performing Lab [facility] 11/02/2022 17:09 [facility] Scanned Images 11/02/2022 17:09 [facility] Tissue ENTIRE ESOPHAGUS / Unknown 10/27/2022 11:15 EDT 10/27/2022 16:58 EDT Tissue specimen (specimen) STOMACH STRUCTURE / Unknown 10/27/2022 11:15 EDT 10/27/2022 16:58 EDT Tissue specimen (specimen) ESOPHAGEAL STRUCTURE / Unknown 10/27/2022 11:15 EDT 10/27/2022 16:58 EDT us Dale Collier MD PATHOLOGY ORDERABLES Fin al Result [facility] [address] [place] [address] documented in this encounter Visit Diagnoses Diagnosis Nausea Nausea alone Vomiting, unspecified documented in this encounter Care Teams Keg Inspector Relationship Specialty Start Date End Date Carrington Calderon MD 1 [facility] 1 [place] [address] PCP - General Internal Medicine - Primary Care 12/09/20 Abigail Díaz Slab Depiler Operator 04/21/23 01/03/24 Carmelo Hendrickson Coordinator 12/01/23 Abigail Díaz Slab Depiler Operator 01/04/24 documented as of this encounter
--- OUTSIDE RECORDS SUMMARY | 2024-05-31 07:26 | XMS_ITS | Encounter Summary ---
Author Organization [facility] Address [address] [place] [address] Care Team Providers Care Pie Icer Machine Name Role Phone Carrington Calderon MD Primary Care Provi anders Reason for Visit * Reason Onset Date Comments No Show 09/28/2021 Encounter Details Date Type Department Care Team (Late st Contact Info) Description 09/28/2021 Telephone [facility] Adult Primary Care [address] [phone] Carrintgon Calderon MD 1 [facility] Level 1 [place] [address] No Show Social History Tobacco [...] on filedocumented in this encounter Care Teams Pie Icer Machine Relationship Specialty Start Date End Date Carrington Calderon MD 1 [facility] 1 [place] [address] PCP - General Internal Medicine - Primary Care 12/09/20 documented as of this encounter
--- OUTSIDE RECORDS SUMMARY | 2024-05-31 07:26 | XMS_ITS | Encounter Summary ---
Author Organization [facility] Address [address] [place] [address] Care Team Providers Care Program Strategist Name Role Phone Carrington Calderon MD Primary Care Provi anders Abigail Díaz Unavailable [phone] Carmelo Hendrickson Unavailable Unavailable Abigail Díaz Unavailable [phone] Encounter Details Date Type Department Care Team (Late st Contact Info) Description 09/13/2022 Lab Requisition [facility] Pathology & Laboratory Medicine - [address] [address] Ester Gabriel [address] [place] [address] Encounter for other general examination [...] explore management options, if applicable. 09/20/2022 10:01 [facility] Final Diagnosis A. TOE, LEFT 2ND, AMPUTATION: - Acute osteomyelitis. - Disarticulated joint margin negative for acute osteomyelitis. - Skin with ulceration, cellulitis and dermal fibrosis. 09/20/2022 10:01 [facility] Attestation By the signature below, the attending physician certifies that they have 1) personally conducted a gross and/or microscopic examination of the described specimen(s), and/or personally interpreted the results of laboratory testing of the described specimen(s), and 2) personally rendered or confirmed the above diagnosis. 09/20/2022 10:01 [facility] at 1001 Clinical History Osteomyelitis 09/20/2022 10:01 [facility] Gross Description A. Received [...] the resection margin is without gross lesions. Rewinder Operator Helper sections are submitted following acid decalcification as follows: BLOCK SHIELDS A1- perpendicular sections ulceration to include nearest skin and soft tissue margin A2- bone margin EUNICE RILEY(ASCP) 09/13/2022 13:00 09/20/2022 10:01 [facility] Performing Lab [facility] 10:01 [facility] Scanned Images 09/20/2022 10:01 [facility] Tissue TRAUMATIC AMPUTATION OF UPPER LIMB / Unknown 09/10/2022 9:17 EDT 09/13/2022 8:56 EDT Ester Gabriel PATHOLOGY ORDERABLES Final Resul t [facility] [address] [place] [address] documented in this encounter Visit Diagnoses Diagnosis Encounter for other general examination documented in this encounter Care Teams Program Strategist Relationship Specialty Start Date End Date Carrington Calderon MD 1 [facility] Level 1 [place] [address] PCP - General Internal Medicine - Primary Care 12/09/20 Abigail Díaz Sales Support Advisor 04/21/23 01/03/24 Carmelo Hendrickson Coordinator 12/01/23 Abigail Díaz Sales Support Advisor 01/04/24 documented as of this encounter
--- OUTSIDE RECORDS SUMMARY | 2024-05-31 07:26 | XMS_ITS | Encounter Summary ---
Author Organization [facility] Address [address] [place] [address] Care Team Providers Care Compliance Officer Name Role Phone Carrington Calderon MD Primary Care Provi anders Reason for Visit * Reason Onset Date Comments COVID-19 Positive Patient Outreach 02/25/2022 Encounter Details Date Type Department Care Team (Late st Contact Info) Description 02/25/2022 Telephone [facility] Adult Primary Care [address] [phone] Carrington Calderon MD [address] [address] COVID-19 Positive Patient Outreach Social [...] Encounter - Benita Thompson RN - 02/26/2022 8992 EDT Patient tested positive for covid 19 [...] wash your hands often. Rx pended with [facility] [place] [facility] loaded. Patient lives in [place] but says that her [id number] will be in [place] this afternoon and will be able to [...] Primary documented in this encounter Care Teams Compliance Officer Relationship Specialty Start Date End Date Carrington Calderon MD 1 [facility] Level 1 [place] [phone] PCP - General Internal Medicine - Primary Care 12/09/20 documented as of this encounter
--- OUTSIDE RECORDS SUMMARY | 2024-05-31 07:26 | XMS_ITS | Encounter Summary ---
Author Organization [facility] Address [address] [place] [address] Care Team Providers Care Traffic Controller Cable Name Role Phone Carrington Calderon MD Primary Care Provi anders Reason for Visit * Reason Comments Medications Refill Encounter Details Date Type Department Care Team (Late st Contact Info) Description 02/28/2022 Refill [facility] Adult Primary Care [facility] 1 [place], [place] [phone] Kylah Weiner MD 1 [facility] Level 1 [place] [address] Medications Refill Social History Tobacco [...] 0852 EDT Medication(s) Requested: omeprazole Preferred Pharmacy: [facility] Is patient out of medication? Unknown Last [...] documented as of this encounter Care Teams Traffic Controller Cable Relationship Specialty Start Date End Date Carrington Calderon MD 1 [facility] Level 1 [place] [address] PCP - General Internal Medicine - Primary Care 12/09/20 documented as of this encounter
--- OUTSIDE RECORDS SUMMARY | 2024-05-31 07:26 | XMS_ITS | Encounter Summary ---
Author Organization [facility] Address [address] [place] [address] Care Team Providers Care Community Center Worker Name Role Phone Carrington Calderon MD Primary Care Provi anders Reason for Visit * Reason Comments Med Change Request Encounter Details Date Type Department Care Team (Late st Contact Info) Description 09/14/2022 [facility] 1 [place], [place] [phone] Nimisha Clifton, GUSTAVO 1 [facility] Level 1 [place] [address] Med Change Request Social History [...] FLEXPEN) 100 unit/mL (3 mL) injectable pen [[id number]] ?? Order Details Dose: 12 Units Route: [...] with long-term current use of insulin ([facility])- Primary documented in this encounter Care Teams Community Center Worker Relationship Specialty Start Date End Date Carrington Calderon MD 1 [facility] 1 [place] [address] PCP - General Internal Medicine - Primary Care 12/09/20 documented as of this encounter
--- OUTSIDE RECORDS SUMMARY | 2024-05-31 07:26 | XMS_ITS | Encounter Summary ---
Author Organization [facility] Address [address] [place] [address] Care Team Providers Care Assistant Corporate Secretary Name Role Phone Carrington Calderon MD Primary Care Provi anders Reason for Visit * Reason Onset Date Comments Prior Auth, Medication 01/29/2022 Encounter Details Date Type Department Care Team (Late st Contact Info) Description 01/29/2022 Telephone [facility] Adult Primary Care [address] [address] Carrington Calderon MD 1 [facility] Level [address] [place] [address] Prior Auth, Medication Social History Tobacco [...] Trujillo - 02/26/2022 1518 EDT Call to [facility] to check and see what is going on with the patients sensors at the patientis all out and needs these EDGARD. Per [facility] Azra, when this is ran it states drug therapy is not on file. OV notes and completed form have been faxed to [facility] for approval. * Telephone Encounter - Satinder [...] Free style Nissa 14 day sensor Mejia: [id number] documented in this encounter Plan of Treatment Not on file documented as of this encounter Visit Diagnoses Not on filedocumented in this encounter Care Teams Assistant Corporate Secretary Relationship Specialty Start Date End Date Carrington Calderon MD 1 [facility] 1 [place] [address] PCP - General Internal Medicine - Primary Care 12/09/20 documented as of this encounter
--- OUTSIDE RECORDS SUMMARY | 2024-05-31 07:26 | XMS_ITS | Encounter Summary ---
Author Organization [facility] Address [address] [place] [address] Care Team Providers Care Lung Splitter Name Role Phone Carrington Calderon MD Primary Care Provi anders Reason for Visit * Reason Comments Diabetes * Consult (See Order Priority) - Order Cancelled Specialty Diagnoses / Procedures Referred By Kit goode Referred To Contact Endocrinology Diagnoses Type 2 diabetes mellitus with diabetic polyneuropathy, with long-term current use of insulin ([facility]) Carrington Calderon MD Phone: tel: fax: [facility] Endocrinology [address] [address] Phone: tel: fax: Referral ID Status Reason Start Date Expiration Date Visits Requested Visits Authorized [id number] Order Cancelled Specialty Services Required 01/29/2022 1 1 Encounter Details Date Type Department Care Team (Late st Contact Info) Description 03/15/2022 8:40 EDT Telemedicine [facility] Endocrinology [address] [address] Eryn Mims DO [address] [place] [address] [address] [place] [address] Type 2 diabetes mellitus with diabetic polyneuropathy, with long-term current use of insulin ([facility]) (Primary Dx) Social History Tobacco Use [...] VIGNESH 2 SENSOR) kit 1 Device by [facility] (non-drug; combo route) route [...] 0 ??? blood glucose test strips Brand: [employer] Precision Cristo, use as directed if Freestyle [...] insulin ([facility])- Primary documented in this encounter Discontinued Medications Medication Sig Discontinue Reason Start Date End Da te flash glucose sensor (FREESTYLE VIGNESH 2 SENSOR) kit 1 Device by [facility] (non-drug; combo route) route continuous. Reorder 10/01/2020 03/15/2022 SITagliptin (JANUVIA) 50 mg tablet Take 1 Tab by mouth daily. Reorder 09/02/2020 03/15/2022 documented as of this encounter Care Teams Lung Splitter Relationship Specialty Start Date End Date Carrington Calderon MD 1 [facility] 1 [place] [address] PCP - General Internal Medicine - Primary Care 12/09/20 documented as of this encounter
--- OUTSIDE RECORDS SUMMARY | 2024-05-31 07:26 | XMS_ITS | Encounter Summary ---
Author Organization [facility] Address [address] [place] [address] Care Team Providers Care Internet Application Developer Name Role Phone Carrington Calderon MD Primary Care Provi anders Reason for Referral * Medication Prior Authorization - Authorized Specialty Diagnoses / Procedures Referred By Contlesli goode Referred To Contact Diagnoses Chronic midline low back pain without sciatica Nimisha Clifton NP [address] [address] Phone: tel: fax: Referral ID Status Reason Start Date Expiration Date V isits Requested Visits Authorized [id number] Authorized 08/05/2022 09/04/2023 1 1 Reason for Visit * Reason Comments Pre-op Exam Toe amputation Encounter Details Date Type Department Care Team (Late st Contact Info) Description 09/02/2022 11:15 EDT Office Visit [facility] Adult Primary Care - [address] [address] Nimisha Clifton NP [address] [address] Osteomyelitis of left foot, unspecified [...] who presents today for preop. Surgery in [facility]. Hospitalized last week for infection tue-tue. [...] shares that she follows with endocrine in [facility], next visit in September. Believes her last [...] use of insulin ([facility] ([facility]) ??? Gastroparesis ??? Neuropathic diabetic ulcer of foot ([facility]) ??? Tobacco use ??? Skin [...] ??? Diabetes ([facility]) ([facility]) A1c 10.3 on 11/28/2019 - poorly controlled ??? Diabetes mellitus, type 2 ([facility]) ([facility]) pt check blood sugars at home- [...] 08/19. Followed by [facility] Past Surgical History: Procedure [...] Diagnosis Osteomyelitis of left foot, unspecified type ([facility])- Primary Type 2 diabetes mellitus with diabetic polyneuropathy, with long-term current use of insulin ([facility]) Chronic midline low back pain without [...] 06/27/2023 added in this encounter Care Teams Internet Application Developer Relationship Specialty Start Date End Date Carrington Calderon MD 1 [facility] Level 1 [place] [address] PCP - General Internal Medicine - Primary Care 12/09/20 documented as of this encounter
--- OUTSIDE RECORDS SUMMARY | 2024-05-31 07:26 | XMS_ITS | Encounter Summary ---
Author Organization [facility] Address [address] [place] [address] Care Team Providers Care Composite Science Teacher Name Role Phone Carrington Calderon MD Primary Care Provi anders Reason for Visit * Reason Onset Date Comments Medications Refill 10/30/2021 tramadol / lo razepam Encounter Details Date Type Department Care Team (Late st Contact Info) Description 10/30/2021 Refill [facility] Adult Primary Care - [address] [address] Carrington Calderon MD 1 [facility] Level 1 [place] [address] Medications Refill (tramadol / lorazepam) [...] documented as of this encounter Care Teams Composite Science Teacher Relationship Specialty Start Date End Date Carrington Calderon MD 1 [facility] 1 [place] [address] PCP - General Internal Medicine - Primary Care 12/09/20 documented as of this encounter
--- OUTSIDE RECORDS SUMMARY | 2024-05-31 07:26 | XMS_ITS | Encounter Summary ---
Author Organization [facility] Address [address] [place] [address] Care Team Providers Care Veneer Lathe Operator Name Role Phone Carrington Calderon MD Primary Care Provi anders Reason for Visit * Reason Comments Medications Refill Encounter Details Date Type Department Care Team (Late st Contact Info) Description 02/26/2022 Refill [facility] Adult Primary Care [address] [phone] Tonja Alejandro PA-C [address] [place] [address] [place] [phone] Medications Refill Social History Tobacco Use [...] Requested: METOCLOPRAMIDE HCI 10 MG Preferred Pharmacy: [facility] Is patient out of medication? [...] documented as of this encounter Care Teams Veneer Lathe Operator Relationship Specialty Start Date End Date Carrington Calderon MD 1 [facility] Level 1 [place] [phone] PCP - General Internal Medicine - Primary Care 12/09/20 documented as of this encounter
--- OUTSIDE RECORDS SUMMARY | 2024-05-31 07:26 | XMS_ITS | Encounter Summary ---
Author Organization [facility] Address [address] [place] [address] Care Team Providers Care Road Mixer Operator Name Role Phone Carrington Calderon MD Primary Care Provi anders Abigail Díaz Unavailable Carmelo Hendrickson Unavailable Unavailable Abigail Díaz Unavailable Reason for Visit * Reason Onset Date Comments Appointment Related 02/05/2022 LVM in regar ds to zomm appt. Adivised to call back for any questions or concerns. x2 Encounter Details Date Type Department Care Team (Late st Contact Info) Description 02/05/2022 Telephone [facility] Gastroenterology - [address] [address] Scott Arzate MD [address] [place] [address], Level [address] [place] [address] Appointment Related (LVM in regards [...] on filedocumented in this encounter Care Teams Road Mixer Operator Relationship Specialty Start Date End Date Carrington Calderon MD 1 [facility] 1 [place] [phone] PCP - General Internal Medicine - Primary Care 12/09/20 Abigail Díaz Educational Psychology Teacher 04/21/23 01/03/24 Carmelo Hendrickson Coordinator 12/01/23 Abigail Díaz Educational Psychology Teacher 01/04/24 documented as of this encounter
--- OUTSIDE RECORDS SUMMARY | 2024-05-31 07:26 | XMS_ITS | Encounter Summary ---
Author Organization [facility] Address [address] [place] [address] Care Team Providers Care Shift Production Associate Name Role Phone Carrington Calderon MD Primary Care Provi anders Reason for Visit * Reason Comments Nutrition Counseling * Consult (See Order Priority) - Order Cancelled Specialty Diagnoses / Procedures Referred By Contact Referred To Contact Nutrition / Gastroenterology and Hepatology Diagnoses Gastroparesis Scott Arzate MD Phone: tel:[phone] fax:[phone] [facility] [address] [address] Phone: tel: fax: Referral ID Status Reason Start Date Expiration Date Visits Requested Visits Authorized [id number] Order Cancelled Specialty Services Required 10/09/2021 1 1 Encounter Details Date Type Department Care Team (Late st Contact Info) Description 10/14/2021 11:00 EDT Nutrition [facility] Gastroenterology [address] [address] Savita Curtis, LUCILLE [address] [place] [phone] Gastroparesis; Type 2 diabetes mellitus with diabetic [...] (insulin requiring), and gastroparesis. Recently moved to [place], [place]. Reports frequent nausea, early satiety. Has [...] has a referral for therapy. ??? Diabetes ([facility]) A1c 10.3 on 11/28/2019 - poorly controlled [...] My Chart, and web resources for gastroparesis ([employer]) Stella has recently moved to [place], and is in the process of establishing a PCP and parts control clerk. Encouraged obtaining new meter for closer monitoring of blood glucose levels. Encouraged activity/movement on a daily basis, especially after eating. PLAN: Nutrition Recommendations and Goals: 1. Diet for gastroparesis- lower fat, modified textures to soft/blended, modified high fiber foods 2. Continue to follow diet guidelines for DM, re-establish care w/ parts control clerk, perhaps at Exercise/Activity Recommendations: exercise/activity as tolerated Educational materials provided: Diet for Gastroparesis Method: Handout and Verbal Taught to: Patient Barriers: None Outcomes: verbalized understanding I spent a total of 45 minutes with Cristy Luo today and 40 minutes of that time was spent incounseling and coordination of care as described in the progress note. Savita Curtis RD [phone] documented in this encounter Plan of Treatment Not on file documented as of this encounter Visit Diagnoses Diagnosis Gastroparesis Type 2 diabetes mellitus with diabetic polyneuropathy, with long-term current use of insulin ([facility]) documented in this encounter Care Teams Shift Production Associate Relationship Specialty Start Date End Date Carrington Calderon MD 1 [facility] Level 1 [place] [phone] PCP - General Internal Medicine - Primary Care 12/09/20 documented as of this encounter
--- OUTSIDE RECORDS SUMMARY | 2024-05-31 07:26 | XMS_ITS | Encounter Summary ---
Author Organization [facility] Address [address] [place] [address] Care Team Providers Care Business Quality Assurance Analyst Name Role Phone Carrington Calderon MD Primary Care Provi anders Reason for Visit * Reason Comments New Patient Visit Gastroparesis * Consult (Routine/Next Available) - Order Cancelled Specialty Diagnoses / Procedures Referred By Contact Referred To Contact Gastroenterology and Hepatology Diagnoses Gastroparesis Carrington Calderon MD Phone: tel:[phone] fax:[phone] [facility] Gastroenter[facility] [address] [address] Phone: tel: fax: Referral ID Status Reason Start Date Expiration Date Visits Requested Visits Authorized [id number] Order Cancelled Specialty Services Required 06/11/2021 1 1 Encounter Details Date Type Department Care Team (Late st Contact Info) Description 10/09/2021 11:20 EDT Office Visit [facility] Gastroenterology [address] [phone] Scott Arzate MD [address] [place] [address], [facility] [address] [place] [address] Gastroparesis (Primary Dx) Social History [...] documented in this encounter Care Teams Business Quality Assurance Analyst Relationship Specialty Start Date End Date Carrington Calderon MD 1 [facility] Level 1 [place] [address] PCP - General Internal Medicine - Primary Care 12/09/20 documented as of this encounter
--- OUTSIDE RECORDS SUMMARY | 2024-05-31 07:26 | XMS_ITS | Encounter Summary ---
Author Organization [facility] Address [address] [place] [address] Care Team Providers Care Heavy Truck Driver Name Role Phone Carrington Calderon MD Primary Care Provi anders Reason for Visit * Reason Comments Pre-op Exam Toe amputation Encounter Details Date Type Department Care Team (Late st Contact Info) Description 05/20/2022 13:45 EST Office Visit [facility] Adult Primary Care - [place] [address] [place], [place] [phone] Rachel Stein PA-C 1 [facility] Level 1 [place] [address] Type 2 diabetes mellitus with diabetic polyneuropathy, with long-term current use of insulin ([facility]) (Primary Dx); Preop examination Social History [...] Care Everywhere. * Surgery Prep: General Info ([place]ozambican) documented in this encounter Progress Notes * Rachel Stein PA-C - 05/20/2022 5658 EST Subjective: Cristy Luo is a 37 y.o. female who presents to the office today for a preoperative consultation at the request of Dr. Ester Gabriel, who will perform a L third toe [facility] [place]. Current Complaints: Failure of IV abx [place] SURGEON: Dr. Prudence Gabriel PROCEDURE: toe amputation [phone] Office name: [facility] Prior h/o of anesthetic complications: denies [...] 09/04/201502/18, 08/19. Followed by Dr. López[facility] in [facility] Family History Problem Relation Age of [...] 0 ??? blood glucose test strips Brand: Vocollect Cristo, use as directed if Freestyle Vignesh [...] daily. 400 Each 2 ??? lancets Brand: [employer], use as directed if Freestyle Vignesh censor [...] long-term current use of insulin ([facility]) ([facility]) 2. Preop examination [...] with long-term current use of insulin ([facility]) Preop examination documented in this encounter Results * ECG REPORT - SCANNED (05/21/2022 11:24 EST) 05/21/2022 11:2 4 EST us Scan 2 Systems Testing Laboratory Technician PROCEDURE/MINOR SURGICAL OR DERABLES Final Result * ECG REPORT - SCANNED (05/21/2022 11:24 EST) 05/21/2022 11:2 4 EST us Scan 2 Systems Testing Laboratory Technician PROCEDURE/MINOR SURGICAL OR DERABLES Final Result * EK 12-LEAD (05/20/2022 14:39 EST) 05/20/2022 14:3 9 EST Narrative [facility] EK - 05/20/2022 14:56 EST ? PC Site ? Test Date: ?2022-05-20 Pat Name: ? CRISTY LUO ?Department: ?? [facility] ? Room: ? Gender: ? Female ? Precipitator Operator: ?? [id number] : ?1985 ? Requested By: GARRISON KIRBY Order Number: [id number] ? Reading MD: ?? Rachel WOLFF C ? Measurements Intervals ?Prentiss ? Rate: ? 114 ?P: ?57 LA: ? 141 ?QRS: ?17 QRSD: ? 88 [...] Date: 2022-05-20 Pat Name: CRISTY LUO Department: [facility] Room: Gender: Female Precipitator Operator: [id number] : 1985 Requested By: GARRISON KIRBY Order Number: [id number] Sammie MD: Rachel Colon Measurements Intervals Prentiss Rate: 114 P: 57 LA: 141 QRS: 17 QRSD: 88 T: 28 [...] PA-C CARDIAC ECG ORDERABLES Fin al Result [facility] EKG documented in this encounter Visit Diagnoses Diagnosis Type 2 diabetes mellitus with diabetic polyneuropathy, with long-term current use of insulin ([facility])- Primary Preop examination Preoperative examination, unspecified [...] with long-term current use of insulin ([facility]) Inject 1 Kit into the [...] documented as of this encounter Care Teams Heavy Truck Driver Relationship Specialty Start Date End Date Carrington Calderon MD 1 [facility] 1 [place] [address] PCP - General Internal Medicine - Primary Care 12/09/20 documented as of this encounter
--- OUTSIDE RECORDS SUMMARY | 2024-05-31 07:26 | XMS_ITS | Encounter Summary ---
Author Organization [facility] Address [address] [place] [address] Care Team Providers Care Escort Vehicle Driver Name Role Phone Carrington Calderon MD Primary Care Provi anders Reason for Visit * (Routine/Next Available) - Receiving Office to Obtain Authorization Specialty Diagnoses / Procedures Referred By Kit goode Referred To Contact Procedures XR OUTSIDE IMAGES NEURO Imaging, External Referral ID Status Reason Start Date Expiration Date Visits Requested Visits Authorized [id number] Receiving Office to Obtain Authorization 2 1 1 Encounter Details Date Type Department Care Team (Latest Contact Info) Description 03/18/2022 - 03/18/2022 23:59 EDT Hospital Encounter [facility] Secondary Reads [place] Discharge Disposition: [...] polyneuropathy, with long-term current use of insulin ([facility]) One Touch Verio Flex meter. 1 Each [...] VIGNESH 2 READER) misc 1 Device by [employer] (non-drug; combo route) route continuous. 1 Each 1 05/21/20 22 flash glucose sensor (FREESTYLE VIGNESH 14 DAY SENSOR) kitIndications:Type 2 diabetes mellitus with diabetic polyneuropathy, with long-term current use of insulin ([facility]) Inject 1 Kit into the skin every 14 days. 6 Kit 3 2 05/21/20 22 flash glucose sensor (FREESTYLE VIGNESH 2 SENSOR) kit 1 Device by [facility] (non-drug; combo route) route [...] polyneuropathy, with long-term current use of insulin ([facility]) Inject 40 Units into the skin at bedtime for 90 days. 36 mL 4 2 11/18/19 23 insulin pen needles 31G x 16Indications:Ty pe 2 diabetes mellitus with hyperglycemia, with long-term current use of insulin ([facility]) Use 1 pen needle as directed 4 [...] on filedocumented in this encounter Care Teams Escort Vehicle Driver Relationship Specialty Start Date End Date Carrington Calderon MD 1 [facility] Level [address] [place] [phone] PCP - General Internal Medicine - Primary Care 12/09/20 documented as of this encounter
--- OUTSIDE RECORDS SUMMARY | 2024-05-31 07:27 | XMS_ITS | Encounter Summary ---
Author Organization [facility] Address [address] [place] [address] Care Team Providers Care Supervisor Finishing Name Role Phone Carrington Calderon MD Primary Care Provi anders Reason for Visit * Reason Onset Date Comments Medications Refill 12/04/2020 Medications Refill 12/05/2020 Encounter Details Date Type Department Care Team (Late st Contact Info) Description 12/04/2020 Refill [facility] Adult Primary Care - [address] [phone] Tonja Alejandro PA-C [address] [place] [phone] Medications Refill; Medications Refill Social History [...] documented as of this encounter Care Teams Supervisor Finishing Relationship Specialty Start Date End Date Carrington Calderon MD 1 [facility] 1 [place] [address] PCP - General Internal Medicine - Primary Care 12/09/20 documented as of this encounter
--- OUTSIDE RECORDS SUMMARY | 2024-05-31 07:27 | XMS_ITS | Encounter Summary ---
Author Organization [facility] Address [address] [place] [address] Care Team Providers Care Relocation Manager Name Role Phone Carrington Calderon MD Primary Care Provi anders Reason for Visit * Reason Comments Medication Management Encounter Details Date Type Department Care Team (Late st Contact Info) Description 06/11/2021 9:45 EST Office Visit [facility] Adult Primary Care - [place] [address] [place], [place] [address] Carrington Calderon MD 1 [facility] Level [address] [place] [phone] Type 2 diabetes mellitus with hyperosmolarity without coma, with long-term current use of insulin ([facility]) ([facility]) (Primary Dx); Anxiety; Chronic midline low back pain without sciatica; Anxiety and depression; Gastroparesis; Diabetic polyneuropathy associated with type 2 diabetes mellitus ([facility]) (HCC); Mid back pain Social [...] emergency department For the diabetes -[place] re[place] -If you have trouble using this [...] use of insulin ([facility]) ([facility]): By description, it sounds like glucose is responding well to the changes that were made last year. However, she does not have her freestyle mitul readings available today, and we do not have a recent A1c. I recommended getting an A1c as soon as she is able. I have sent an order to [place]. - HEMOGLOBIN A1C Anxiety: Continue lorazepam for [...] of the lumbar spine. Order sent to [place]. - XR LUMBAR SPINE 2-3 VIEWS Anxiety [...] with type 2 diabetes mellitus ([facility]) ([facility]): Symptoms persist.Continue gabapentin. - gabapentin [...] was seen in the emergency department in [place] for recurrence ofintractable nausea and vomiting with [...] coma, with long-term current use of insulin ([facility])- Primary Anxiety Anxiety state, unspecified Chronic midline low back pain without sciatica Anxiety and depression Dysthymic disorder Gastroparesis Diabetic polyneuropathy associated with type 2 diabetes mellitus ([facility]) Mid back pain Backache, unspecified [...] 2 added in this encounter Care Teams Relocation Manager Relationship Specialty Start Date End Date Carrington Calderon MD 1 [facility] Level [address] [place] [phone] PCP - General Internal Medicine - Primary Care 12/09/20 documented as of this encounter
--- OUTSIDE RECORDS SUMMARY | 2024-05-31 07:27 | XMS_ITS | Encounter Summary ---
Author Organization [facility] Address [address] [place] [address] Care Team Providers Care Ruby On Rails Developer Name Role Phone Carrington Calderon MD [...] Assessment Author No 10/02/2020 23:50 EDT River Fracnisco RN * Are you blind or do [...] on filedocumented in this encounter Care Teams Ruby On Rails Developer Relationship Specialty Start Date End Date Carrington Calderon MD 1 [facility] 1 [place] [phone] PCP - General Internal Medicine - Primary Care 12/09/20 documented as of this encounter
--- OUTSIDE RECORDS SUMMARY | 2024-05-31 07:27 | XMS_ITS | Encounter Summary ---
Author Organization [facility] Address [address] [place] [address] Care Team Providers Care Television News Producer Name Role Phone Carrington Calderon MD Primary Care Provi anders Reason for Visit * Reason Comments Other Encounter Details Date Type Department Care Team (Late st Contact Info) Description 09/13/2021 [facility] Adult Primary Care [facility] 1 [place], [place] [address] Carrington Calderon MD 1 [facility] Level [address] [place] [address] Other Social History Tobacco Use [...] 0913 EDT traMADol (ULTRAM) 50 mg tablet [[id number]] ?? Order Details Dose, Route, Frequency: As [...] documented as of this encounter Care Teams Television News Producer Relationship Specialty Start Date End Date Carrington Calderon MD 1 [facility] Level [address] [place] [address] PCP - General Internal Medicine - Primary Care 12/09/20 documented as of this encounter
--- OUTSIDE RECORDS SUMMARY | 2024-05-31 07:27 | XMS_ITS | Encounter Summary ---
Author Organization [facility] Address [address] [place] [address] Care Team Providers Care Automatic Shirring Machine Operator Name Role Phone Unavailable Primary [...]
--- OUTSIDE RECORDS SUMMARY | 2024-05-31 07:27 | XMS_ITS | Encounter Summary ---
Author Organization [facility] Address [address] [place] [address] Care Team Providers Care Rougher Merchant Mill Name Role Phone Unavailable Primary Care Provider Unavailabl e Reason for Visit * Reason Comments Dehydration needs rehydration an d nausea meds per PCP Encounter Details Date Type Department Care Team (Latest Contact Info) Description 11/20/2020 9:58 EDT - 11/20/2020 12:29 EDT Hospital Encounter [facility] - [address] [phone] Fran Blanco MD [address] [place] [phone] Nausea and vomiting, intractability of vomiting [...] through Care Everywhere. * Nausea and Vomiting ([place]osotho) documented in this encounter Medications at Time [...] VIGNESH 2 SENSOR) kit 1 Device by [facility] (non-drug; combo route) route [...] hyperglycemia, with long-term current use of insulin ([facility]) Use 1 pen needle as directed 4 [...] Ketones, UA 3+ (AA) Negative mg/dL Specific [place], Urine 1.025 1.001 - 1.035 Blood, UA [...] diabetes mellitus with left diabetic foot ulcer ([facility]) 05/03/2020 ??? Osteomyelitis of great toe of left foot ([facility]) 03/12/2020 ??? Diabetic foot ulcer associated with diabetes mellitus due to underlying condition ([facility]) 03/07/2020 ??? Diabetic foot infection ([facility]) 03/06/2020 ??? Diabetic foot ulcer ([facility]) 03/06/2020 ??? Cellulitis of great toe of left foot 11/26/2019 ??? Chronic midline low back pain without sciatica 11/26/2019 ??? Chronic left ear pain 09/04/2015 ??? Gastroparesis 08/10/2020 SUSPECTED - still needs to be eval with gastric emptying study (as of 08/10/20) ??? Admission for sterilization 06/27/2020 Added automatically from request for surgery [id number] ??? Osteomyelitis of toe of left foot ([facility]) 06/05/2020 Added automatically from request for surgery [id number] ??? Type 2 diabetes mellitus with diabetic polyneuropathy, with long-term current use of insulin ([facility]) 06/05/2020 Added automatically from request for surgery [id number] ??? Family history of rheumatoid arthritis 09/04/2015 Mother, pt with chronic back pain. Told arthritis in spine in teen yrs. ??? Type 2 diabetes mellitus ([facility]) 09/03/2015 Dx approx age 25. Controlled with lifestyle behaviors, wt loss. Had taken lantus in past 80u, Followed by endocrine in [facility]. Stopped few yrs ago until this past month. ??? Anxiety and depression 05/12/2010 Onset teen yrs. Treated with citalopram in approx 2013 - had SI, treated at [facility]. Marijuana prn to help with stress/anxiety sx. [...] has a referral for therapy. ??? Diabetes ([facility]) A1c 10.3 on 11/28/2019 - poorly controlled ??? Diabetes mellitus, type 2 ([facility]) pt check blood sugars at home- X [...] of further medications. Upon departure from [facility], the patient's pain was 0 on a zero to ten scale. Any further pain treatment will be at the discretion of the provider following up with the patient based on their clinical assessment . Condition at departure from the [facility] : Stable [facility] 11/20/2020 17:40 * Harini Castaneda RN - [...] has a referral for therapy. ??? Diabetes ([facility]) A1c 10.3 on 11/28/2019 - poorly controlled ??? Diabetes mellitus, type 2 ([facility]) pt check blood sugars at home- X [...] vomiting occasionally ??? Obesity, unspecified ??? Osteomyelitis ([facility]) of left great toe-s/p amputation ??? Peripheral [...] laboratory if clinically indicated. 11/21/2020 12:11 EDT [facility] Urine URINE SPECIMEN COLLECTION, CLEAN CATCH / Unknown Urine Collect / Unknown 11/20/2020 11:48 EDT 11/20/2020 12:45 EDT us Fran Blanco MD MICROBIOLOGY - GENERAL O RDERABLES Final Result [facility] [address] [place] [id number] * (ABNORMAL) URINE SEDIMENT (MICRO) WITH REFLEX TO CULTURE (11/20/2020 11:48 EDT) Urine RBC Count, Auto 3 - 10(A) 0 - 2 Cells/HPF 11/20/2020 12:45 EDT [facility] Urine WBC Count, Auto 11 - 50(A) 0 - 3 Cells/HPF 11/20/2020 12:45 EDT [facility] Urine Squamous Count, Auto Many(A) None Seen Cells/HPF 11/20/2020 12:45 EDT [facility] Urine Hyaline Cast Count, Auto <=10 <=10 Casts/LPF 11/20/2020 12:45 EDT [facility] Urine Bacteria Count, Auto Moderate(A ) None Seen Bacteria/H PF 11/20/2020 12:45 EDT [facility] Urine URINE SPECIMEN COLLECTION, CLEAN CATCH / Unknown Urine Collect / Unknown 11/20/2020 11:48 EDT 11/20/2020 12:25 EDT Narrative [facility] - 11/20/2020 12:45 EDT A Urine Culture test has been reflexively ordered based on result criteria from the Urine Sediment Analysis. Urine Sediment Analysis results are unreliable on urines that are unrefrigerated for >2 hrs or refrigerated >8 hrs. Fran Blanco MD URINALYSIS ORDERABLES Fi nal Result Performing Organization Address [facility] Co de Phone Number [facility] [address] [place] [address] * POCT CSN BARCODE URINE DIPSTICK (11/20/2020 11:47 EDT) Urine URINE SPECIMEN COLLECTION, CLEAN CATCH / Unknown Urine Collect / Unknown 11/20/2020 11:47 EDT 11/20/2020 11:47 EDT Fran Blanco MD LAB INFO SERVICE AND SUP PORT & PHONE RESULT Final Result Performing Organization Address [facility] Co de Phone Number [facility] [address] [place] [address] * (ABNORMAL) POCT URINE DIPSTICK, CLINITEK (11/20/2020 11:44 EDT) Color, UA Yellow Yellow 11/20/2020 11:46 EDT [facility] Clarity, UA Cloudy(A) Clear 11/20/2020 11:46 EDT [facility] Glucose, UA 2+(A) Negative mg/dL 11/20/2020 11:46 EDT [facility] Bilirubin, UA Negative Negative 11/20/2020 11:46 EDT [facility] Ketones, UA 3+(AA) Negative mg/dL 11/20/2020 11:46 [facility] Specific [place], Urine 1.025 1.001 - 1.035 11/20/2020 11:46 [...] OF CARE TEST ORDER HAILEY Final Result [facility] [address] [place] [address] * (ABNORMAL) COMPLETE BLOOD COUNT AND DIFFERENTIAL [...] 0.00(L) 0.03 - 0.61 K/cmm 11/20/2020 11:51 [facility] ABS Basophils 0.03 0.01 - 0.11 K/cmm 11/20/2020 11:51 [facility] Absolute Immature Grans 0.07(H) 0.00 - 0.06 K/cmm 11/20/2020 11:51 [facility] Type of Differential: Auto 11/20/2020 11:51 [facility] Blood VENOUS BLOOD / Unknown Venipuncture / Unknown 11/20/2020 10:35 EDT 11/20/2020 11:37 EDT us Fran Blanco MD PACKAGES & DNA PROBE ORD ERABLES Final Result [facility] [address] [place] [address] * (ABNORMAL) COMPREHENSIVE METABOLIC PANEL (CMP) (11/20/2020 [...] 3.4 - 4.9 g/dL 11/20/2020 12:01 EDT [facility] Alkaline Phosphatase 113 38 - 126 U/L 11/20/2020 12:01 EDT [facility] AST 23 15 - 46 U/L 11/20/2020 12:01 EDT [facility] ALT 21 <35 U/L 11/20/2020 12:01 T [facility] Bilirubin, Total <0.5 <1.4 mg/dL 11/21/19 12:01 T [facility] Calcium 10.3 8.5 - 10.5 mg/dL 11/20/2020 12:01 [facility] Calculated Calcium 9.8 8.5 - 10.5 mg/dL 11/20/2020 12:01 [facility] Blood VENOUS BLOOD / Unknown Venipuncture / Unknown 11/20/2020 10:35 EDT 11/20/2020 11:37 EDT us Fran Blanco MD CHEMISTRY & BLOOD GAS OR DERABLES Final Result [facility] [address] [place] [address] documented in this encounter Visit Diagnoses Diagnosis [...]
--- OUTSIDE RECORDS SUMMARY | 2024-05-31 07:27 | XMS_ITS | Encounter Summary ---
Author Organization [facility] Address [address] [place] [address] Care Team Providers Care Senior Interactive Producer Name Role Phone Carrington Calderon MD Primary Care Provi anders Reason for Visit * Reason Onset Date Comments Medications Refill 03/12/2021 Encounter Details Date Type Department Care Team (Late st Contact Info) Description 03/12/2021 Telephone [facility] Adult Primary Care - [place] [address] [place], [place] [address] Carrington Calderon MD 1 [facility] Level 1 [place] [address] Medications Refill Social History Tobacco [...] 0914 EDT Medication(s) Requested: Lorazepam Preferred Pharmacy: [place] Is patient out of medication? Yes Last [...] documented as of this encounter Care Teams Senior Interactive Producer Relationship Specialty Start Date End Date Carrington Calderon MD 1 [facility] 1 [place] [address] PCP - General Internal Medicine - Primary Care 12/09/20 documented as of this encounter
--- OUTSIDE RECORDS SUMMARY | 2024-05-31 07:27 | XMS_ITS | Encounter Summary ---
Author Organization [facility] Address [address] [place] [address] Care Team Providers Care Raw Mill Operator Name Role Phone Unavailable Primary [...]
--- OUTSIDE RECORDS SUMMARY | 2024-05-31 07:27 | XMS_ITS | Encounter Summary ---
Author Organization [facility] Address [address] [place] [address] Care Team Providers Care Select Banker Name Role Phone Carrington Calderon MD Primary Care Provi anders Encounter Details Date Type Department Care Team (Late st Contact Info) Description 04/22/2021 Orders Only [facility] Adult Primary Care - [place] 1 [place], [place] [phone] Carrington Calderon MD 1 [facility] Level 1 [place] [address] Type 2 diabetes mellitus with [...] Notes * Carrington Calderon MD - 04/22/2021 1184 EST I think we can skip lipids. If you look at the HM, she's due for an A1C, albumin/creatinine ratio and a hep C screen. Can you order those? Thanks. * Carrington Calderon MD - 04/22/2021 6252 EST All set. Thanks. documented in this encounter Plan of Treatment Not on file documented as of this encounter Visit Diagnoses Diagnosis Type 2 diabetes mellitus with hyperosmolarity without coma, with long-term current use of insulin ([facility])- Primary Screening for hepatitis C declined Encounter for hepatitis C screening test for low risk patient documented in this encounter Care Teams Select Banker Relationship Specialty Start Date End Date Carrington Calderon MD 1 [facility] Level [address] [place] [address] PCP - General Internal Medicine - Primary Care 12/09/20 documented as of this encounter
--- OUTSIDE RECORDS SUMMARY | 2024-05-31 07:27 | XMS_ITS | Encounter Summary ---
Author Organization [facility] Address [address] [place] [address] Care Team Providers Care Coat Joiner Name Role Phone Carrington Calderon MD Primary Care Provi anders Reason for Visit * Reason Comments Other Encounter Details Date Type Department Care Team (Late st Contact Info) Description 07/09/2021 [facility] Adult Primary Care [facility] 1 [place], [place] [phone] Carrington Calderon MD 1 [facility] Level 1 [place] [address] Other Social History Tobacco Use [...] Mahan - 07/10/2021 1226 EST Sydnee from [facility] pharmacy calling to requestion some information. 1)She would like to know the associated diagnosis with the tramadol for their records. 2)She is also wondering if provider is aware she is taking tramadol and lorazepam. * Telephone Encounter - Jesi Love RN - 07/10/2021 1122 EST Medication(s) Requested: tramadol Preferred Pharmacy: [facility] Is patient out of medication? Unknown [...] documented as of this encounter Care Teams Coat Joiner Relationship Specialty Start Date End Date Carrington Calderon MD 1 [facility] 1 [place] [address] PCP - General Internal Medicine - Primary Care 12/09/20 documented as of this encounter
--- OUTSIDE RECORDS SUMMARY | 2024-05-31 07:27 | XMS_ITS | Encounter Summary ---
Author Organization [facility] Address [address] [place] [address] Care Team Providers Care Production Machine Tender Name Role Phone Unavailable Primary Care Provider Unavailabl e Reason for Visit * Reason Onset Date Comments Medications Refill 12/05/2020 Encounter Details Date Type Department Care Team (Late st Contact Info) Description 12/05/2020 Refill [facility] Adult Primary Care - [address] [phone] Tonja Alejandro PA-C [address] [place] [address] [place] [phone] Medications Refill Social History Tobacco Use [...]
--- OUTSIDE RECORDS SUMMARY | 2024-05-31 07:27 | XMS_ITS | Encounter Summary ---
Author Organization [facility] Address [address] [place] [address] Care Team Providers Care Secret Code Expert Name Role Phone Carrington Calderon MD Primary Care Provi anders Reason for Visit * Reason Comments Medications Refill Diabetes Encounter Details Date Type Department Care Team (Late st Contact Info) Description 03/27/2021 13:30 EDT Office Visit [facility] Adult Primary Care - [address] [address] Avelino Dowling MD [address] [place] [phone] Diabetes 1.5, managed as type 2 (HCC) [...] Avelino Dowling MD - 03/27/2021 1330 EDT [facility] DEPARTMENT OF INTERNAL MEDICINE [facility] DATE: 03/27/2021 PATIENT NAME: Cristy Luo [...] and depression ??? Type 2 diabetes mellitus ([facility]) ??? Chronic left ear pain ??? Family history of rheumatoid arthritis ??? Cellulitis of great toe of left foot ??? Chronic midline low back pain without sciatica ??? Diabetic foot infection (HCC-CMS) ([facility]) ??? Diabetic foot ulcer (HCC-CMS) ([facility]) ??? Diabetic foot ulcer associated with diabetes mellitus due to underlying condition (HCC-CMS) ([facility]) ??? Osteomyelitis of great toe of left foot (HCC-CMS) ([facility]) ??? 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 (HCC-CMS) ([facility]) ??? Osteomyelitis of toe of left foot ([facility]) ??? Type 2 diabetes mellitus with diabetic polyneuropathy, with long-term current use of insulin (HCC-CMS) ([facility]) ??? Hx of ectopic ??? Admission for sterilization ??? Gastroparesis ??? Intractable vomiting ??? Vomiting Medications Prior to Today's Visit Medication Sig ??? acetaminophen (TYLENOL) 325 mg tablet Take 2 Tabs by mouth every 4 hours as needed for Pain. ??? blood glucose meter One Touch Verio Flex meter. ??? blood glucose test strips Brand: Newdea Cristo, use as directed if Freestyle Vignesh [facility] [place] (non-drug; comboroute) route continuous. ??? flash glucose sensor (FREESTYLE VIGNESH 2 SENSOR) kit 1 Device by [facility] (non- drug; combo [...] Diagnosis Diabetes 1.5, managed as type 2 ([facility])- Primary Type II or unspecified type [...] 06/11/2021 added in this encounter Care Teams Secret Code Expert Relationship Specialty Start Date End Date Carrington Calderon MD 1 [facility] Level 1 [place] [address] PCP - General Internal Medicine - Primary Care 12/09/20 documented as of this encounter
--- OUTSIDE RECORDS SUMMARY | 2024-05-31 07:27 | XMS_ITS | Encounter Summary ---
Author Organization [facility] Address [address] [place] [address] Care Team Providers Care Electrician Third Name Role Phone Carrington Calderon MD Primary Care Provi anders Reason for Visit * Reason Onset Date Comments Medications Refill 06/17/2021 Encounter Details Date Type Department Care Team (Late st Contact Info) Description 06/17/2021 Telephone [facility] Adult Primary Care [address] [address] Carrington Calderon MD 1 [facility] Level 1 [place] [phone] Medications Refill Social History Tobacco Use Types [...] her appointment. Medication(s) Requested: Tramadol Preferred Pharmacy: [place] Is patient out of medication? Yes Last [...] documented as of this encounter Care Teams Electrician Third Relationship Specialty Start Date End Date Carrington Calderon MD 1 [facility] Level 1 [place] [phone] PCP - General Internal Medicine - Primary Care 12/09/20 documented as of this encounter
--- OUTSIDE RECORDS SUMMARY | 2024-05-31 07:27 | XMS_ITS | Encounter Summary ---
Author Organization [facility] Address [address] [place] [address] Care Team Providers Care Workers Compensation Attorney Name Role Phone Carrington Calderon MD Primary Care Provi anders Reason for Visit * Reason Onset Date Comments No Show 02/18/2021 Encounter Details Date Type Department Care Team (Late st Contact Info) Description 02/18/2021 Telephone [facility] Adult Primary Care - [address] [phone] Carrington Calderon MD 1 [facility] Level 1 [place] [address] No Show Social History Tobacco [...] on filedocumented in this encounter Care Teams Workers Compensation Attorney Relationship Specialty Start Date End Date Carrington Calderon MD 1 [facility] Level 1 [place] [phone] PCP - General Internal Medicine - Primary Care 12/09/20 documented as of this encounter
--- OUTSIDE RECORDS SUMMARY | 2024-05-31 07:27 | XMS_ITS | Encounter Summary ---
Author Organization [facility] Address [address] [place] [address] Care Team Providers Care Liaison Planner Name Role Phone Carrington Calderon MD Primary Care Provi anders Abigail Díaz Unavailable [phone] Carmelo Hendrickson Unavailable Unavailable Abigail Díaz Unavailable [phone] Reason for Visit * Reason Onset Date Comments Medications Refill 12/31/2020 Encounter Details Date Type Department Care Team (Late st Contact Info) Description 12/31/2020 Refill [facility] Adult Primary Care - [address] [phone] Carrington Calderon MD 1 [facility] Level 1 [place] [phone] Medications Refill Social History Tobacco Use Types [...] documented as of this encounter Care Teams Liaison Planner Relationship Specialty Start Date End Date Carrington Calderon MD 1 [facility] 1 [place] [address] PCP - General Internal Medicine - Primary Care 12/09/20 Abigail Díaz Barrel Scraper 04/21/23 01/03/24 Carmelo Hendrickson Coordinator 12/01/23 Abigail Díaz Barrel Scraper 01/04/24 documented as of this encounter
--- OUTSIDE RECORDS SUMMARY | 2024-05-31 07:27 | XMS_ITS | Encounter Summary ---
Author Organization [facility] Address [address] [place] [address] Care Team Providers Care Television Repairman Name Role Phone Carrington Calderon MD Primary Care Provi anders Reason for Visit * Reason Onset Date Comments Referral Request 12/09/2020 GI Encounter Details Date Type Department Care Team (Late st Contact Info) Description 12/09/2020 Telephone [facility] Adult Primary Care [facility] 1 [place], [place] [phone] Tonja Alejandro PA-C [address] [place] [address] [place] [phone] Referral Request (GI) Social History Tobacco [...] Entry Date Author No 10/02/2020 23:50 EDT [place], Krist in, RN documented in this encounter [...] Gastroparesis documented in this encounter Care Teams Television Repairman Relationship Specialty Start Date End Date Carrington Calderon MD 1 [facility] Level 1 [place] [address] PCP - General Internal Medicine - Primary Care 12/09/20 documented as of this encounter
--- OUTSIDE RECORDS SUMMARY | 2024-05-31 07:27 | XMS_ITS | Encounter Summary ---
Author Organization [facility] Address [address] [place] [address] Care Team Providers Care Boilermaker Helper Name Role Phone Unavailable Primary Care Provider Unavailabl e Reason for Visit * Reason Onset Date Comments No Show 11/24/2020 Encounter Details Date Type Department Care Team (Late st Contact Info) Description 11/24/2020 Telephone [facility] Adult Primary Care - [address] [address] Tonja Alejandro PA-C [address] [place] [address] [place] [phone] No Show Social History Tobacco Use [...]
--- OUTSIDE RECORDS SUMMARY | 2024-05-31 07:27 | XMS_ITS | Encounter Summary ---
Author Organization [facility] Address [address] [place] [address] Care Team Providers Care Gun Perforator Loader Name Role Phone Unavailable Primary Care Provider Unavailabl e Reason for Visit * Reason Onset Date Comments Emesis 11/20/2020 Encounter Details Date Type Department Care Team (Late st Contact Info) Description 11/20/2020 Telephone [facility] Adult Primary Care - [address] [address] Tonja Alejandro PA-C [address] [place] [address] [place] [phone] Emesis Social History Tobacco Use Types [...] but can talk to triage nurse at [facility]. Called and spoke briefly with pt: [...] not receive previous reglan script. Resending to [facility]. The patient indicates understanding of these issues and agrees with the plan. No barriers noted. Called [facility] and gave report to charge nurse. * [...]
--- OUTSIDE RECORDS SUMMARY | 2024-05-31 07:27 | XMS_ITS | Encounter Summary ---
Author Organization [facility] Address [address] [place] [address] Care Team Providers Care Patient Support Tech Name Role Phone Carrington Calderon MD Primary Care Provi anders Reason for Visit * Reason Comments Other Encounter Details Date Type Department Care Team (Late st Contact Info) Description 03/16/2021 [facility] Adult Primary Care [facility] 1 [place], [place] [address] Carrington Calderon MD 1 [facility] Level 1 [place] [address] Other Social History Tobacco Use [...] filedocumented in this encounter Care Teams Patient Support Tech Relationship Specialty Start Date End Date Carrington Calderon MD 1 [facility] 1 [place] [address] PCP - General Internal Medicine - Primary Care 12/09/20 documented as of this encounter
--- OUTSIDE RECORDS SUMMARY | 2024-05-31 07:27 | XMS_ITS | Encounter Summary ---
Author Organization [facility] Address [address] [place] [address] Care Team Providers Care Back Tender Cylinder Name Role Phone Carrington Calderon MD Primary Care Provi anders Abigail Díaz Unavailable Carmelo Hendrickson Unavailable Unavailable Abigail Díaz Unavailable [phone] Reason for Visit * Reason Onset Date Comments Appointment Related 04/06/2021 Appointment reminder Encounter Details Date Type Department Care Team (Late st Contact Info) Description 04/06/2021 Telephone [facility] General Surgery - [address] [id number] Britta Cox, ABATTOIR SUPERVISOR [address] [facility], Level [address] [place] [address] Appointment Related (Appointment reminder ) [...] Entry Date Author No 10/02/2020 23:50 EDT [place], Krist in, RN documented in this encounter Miscellaneous Notes * Telephone Encounter - Daniella Batista MA - 04/06/2021 1352 EDT Called pt. 2x and left message at 1:35pm w/ televideo appt. reminder documented in this encounter Plan of Treatment Not on file documented as of this encounter Visit Diagnoses Not on filedocumented in this encounter Care Teams Back Tender Cylinder Relationship Specialty Start Date End Date Carrington Calderon MD 1 [facility] 1 [place] [address] PCP - General Internal Medicine - Primary Care 12/09/20 Abigail Díaz Fisher Crab 04/21/23 01/03/24 Carmelo Hendrickson Coordinator 12/01/23 Abigail Díaz [place] 01/04/24 documented as of this encounter
--- OUTSIDE RECORDS SUMMARY | 2024-05-31 07:27 | XMS_ITS | Encounter Summary ---
Author Organization [facility] Address [address] [place] [address] Care Team Providers Care Quality Intern Name Role Phone Carrington Calderon MD Primary Care Provi anders Reason for Visit * Reason Comments Skin Ulcer * Consult (Routine) - Authorization Not Required Specialty Diagnoses / Procedures Referred By Kit goode Referred To Contact Orthopedic Surgery Diagnoses Diabetic ulcer of right great toe (HCC-CMS) Katiana Adams NP [address] [place] [address] Phone: tel: Elza Navarro DPM Phone: tel: fax: Referral ID Status Reason Start Date Expiration Date Visits Requested Visits Authorized [id number] Authorization Not Required 1 1 Encounter Details Date Type Department Care Team (Late Contact Info) Description 09/17/2021 15:00 EDT Office Visit [facility] Foot & Ankle [facility] - [address] [place] [address] Fadi Barahona NP [address] [place] [address] Neuropathic diabetic ulcer of foot [...] diabetic ulcer of foot ([facility]) E11.40 250.60 OFFLOADING SURGICAL SHOE (L3260) E11.621 250.80 L97.509 357.2 707.15 right great toe 2. Type 2 diabetes mellitus with diabetic polyneuropathy, with long-term current use of insulin ([facility]) ([facility]) E11.42 250.60 OFFLOADING SURGICAL SHOE (L3260) [...] the next morning they went to the [facility] in [place], [place] where she was prescribed antibiotics. She [...] managed by Mary Zafar NP, at the [facility] but, ever since Mary [...] 2020 after an ulcer got infected. Work: [employer] Foot & Ankle Pain Assessment: Pain Orientation : Right Pain Location: Toe (GRT) Numeric Pain Level (Scale 1-10): 0 Pain in another site? : No Past medical history, medications and allergies were noted in [facility]. The patient did not fill out the intake form Patient Active Problem List Diagnosis Date Noted ??? Neuropathic diabetic ulcer of foot ([facility]) 09/17/2021 ??? Chronic midline low back pain without sciatica 11/26/2019 ??? Chronic left ear pain 09/04/2015 ??? Gastroparesis 08/10/2020 ??? Type 2 diabetes mellitus with diabetic polyneuropathy, with long-term current use of insulin ([facility]) ([facility]) 06/05/2020 ??? Family history of rheumatoid [...] for therapy. ??? Diabetes ([facility]) A1c 10.3 on 11/28/2019 - poorly controlled ??? Diabetes mellitus, type 2 ([facility]) pt check blood sugars at home- [...] 0 ??? blood glucose test strips Brand: [employer] Precision Cristo, use as directed if Freestyle [...] VIGNESH 2 SENSOR) kit 1 Device by [facility] (non- drug; combo route) route continuous. 6 [...] use of insulin ([facility]) ([facility]) OFFLOADING SURGICAL SHOE (L3260) Other Orders [...] prepared with speech recognition software or keyboard director enterprise data architecture techniques. Minor irregularities or keyboarding misprints may [...] 22 documented in this encounter Care Teams Quality Intern Relationship Specialty Start Date End Date Carrington Calderon MD [address] [facility] 1 [place] [phone] PCP - General Internal Medicine - Primary Care 12/09/20 documented as of this encounter
--- OUTSIDE RECORDS SUMMARY | 2024-05-31 07:27 | XMS_ITS | Encounter Summary ---
Author Organization [facility] Address [address] [place] [address] Care Team Providers Care Supervisory It Specialist Name Role Phone Carrington Calderon MD Primary Care Provi anders Encounter Details Date Type Department Care Team (Late st Contact Info) Description 02/12/2021 Orders Only [facility] Adult Primary [facility] - [place] 1 [place], [place] [address] Carrington Calderon MD 1 [facility] Level 1 [place] [address] Osteomyelitis of great toe of [...] Primary documented in this encounter Care Teams Supervisory It Specialist Relationship Specialty Start Date End Date Carrington Calderon MD 1 [facility] 1 [place] [phone] PCP - General Internal Medicine - Primary Care 12/09/20 documented as of this encounter
--- OUTSIDE RECORDS SUMMARY | 2024-05-31 07:27 | XMS_ITS | Encounter Summary ---
Author Organization [facility] Address [address] [place] [address] Care Team Providers Care Er Medical Technician Name Role Phone Unavailable Primary Care [...] 21:17 EDT - 12/07/2020 1:52 EDT Emergency [facility] Emergency Department - [address] [address] Fran Barbosa MD [address] [place] [address], Level [address] [place] [address] Andrés Garcia MD [address] [place] [phone] Nausea and vomiting, intractability of vomiting [...] through Care Everywhere. * Nausea and Vomiting ([place]) documented in this encounter Medications at Time of Discharge acetaminophen (TYLENOL) 325 mg tablet Take 2 Tabs by mouth every 4 hours as needed for Pain. 08/20/2020 blood glucose meter One Touch Verio Flex meter. 1 Each 10/04/2019 2 blood glucose test strips Brand: [employer]RI Cristo, use as directed if Freestyle Vignesh [...] hyperglycemia, with long-term current use of insulin ([facility]) Use 1 pen needle as directed 4 [...] 12/11/2020 16:3 7 EDT us Scan 2 Event Decorator And Designer PROCEDURE/MINOR SURGICAL OR DERABLES Final Result * (ABNORMAL) POCT URINE DIPSTICK, CLINITEK (12/07/2020 0:20 EDT) Color, UA Yellow Yellow 12/07/2020 0:26 [facility] Clarity, UA Clear Clear 12/07/2020 0:26 [facility] Glucose, UA 2+(A) Negative mg/dL 12/07/2020 0:26 [facility] Bilirubin, UA Negative Negative 12/07/2020 0:26 [facility] Ketones, UA 4+(AA) Negative mg/dL 12/07/2020 0:26 [facility] Specific [place], Urine 1.025 1.001 - 1.035 12/07/2020 0:26 [facility] Blood, UA Negative Negative 12/07/2020 0:26 [facility] pH, UA 7.0 <=8 12/07/2020 0:26 [facility] Protein, UA Negative Negative mg/dL 12/07/2020 0:26 [facility] Urobilinogen, UA 0.2 0.2 - 1.0 EU/dL 12/07/2020 0:26 [facility] Nitrite, UA Negative Negative 12/07/2020 0:26 [facility] Leuk Esterase Negative Negative 12/07/2020 0:26 [facility] HN LAB COMMENT (CLINITEK, UR) Test performed at Emergency Department 12/07/2020 0:26 [facility] Urine URINE SPECIMEN COLLECTION, CLEAN CATCH / Unknown 12/07/2020 0:20 EDT 12/07/2020 0:26 EDT Fran Barbosa MD POINT OF CARE TEST OR DERABLES Final Result Performing Organization Address [facility] de Phone Number [facility] [address] [place] [address] * POCT TEST, CLINITEK (12/07/2020 0:08 EDT) UPT Result Negative Negative 12/07/2020 0:14 EDT [facility] HN LAB COMMENT (CLINITEK, UPT) Test performed at Emergency Department 12/07/2020 0:14 EDT [facility] Comment:False negative resul ts may occur in women who are beyond 5-8 weeks gestation. Diagnosis of should be based on a correlation of test results with typical clinical signs and symptoms. Urine URINE SPECIMEN COLLECTION, CLEAN CATCH / Unknown 12/07/2020 0:08 EDT 12/07/2020 0:14 EDT Fran Barbosa MD POINT OF CARE TEST OR DERABLES Final Result Performing Organization Address [facility] de Phone Number [facility] [address] [place] [address] * POCT CSN BARCODE URINE PREG TEST (12/07/2020 0:06 EDT) Urine URINE SPECIMEN COLLECTION, CLEAN CATCH / Unknown Urine Collect / Unknown 12/07/2020 0:06 EDT 12/07/2020 0:06 EDT Fran Barbosa MD LAB INFO SERVICE AND SUPPORT & PHONE RESULT Final Result Performing Organization Address [facility] Co de Phone Number [facility] [address] [place] [address] * POCT CSN BARCODE URINE DIPSTICK (12/07/2020 0:06 EDT) Urine URINE SPECIMEN COLLECTION, CLEAN CATCH / Unknown Urine Collect / Unknown 12/07/2020 0:06 EDT 12/07/2020 0:06 EDT Fran Barbosa MD LAB INFO SERVICE AND SUPPORT & PHONE RESULT Final Result [facility] [address] [place] [address] * (ABNORMAL) BASIC METABOLIC PANEL (BMP) (12/06/2020 23:42 EDT) Sodium 141 136 - 145 mEq/L 12/07/2020 0:08 [facility] Potassium 4.0 3.5 - 5.0 mEq/L 12/07/2020 0:08 [facility] Chloride 99 96 - 110 mEq/L 12/07/2020 0:08 [facility] CO2 Total 29 22 - 32 mEq/L 12/07/2020 0:08 [facility] Glucose 248(H) 70 - 100 mg/dL 12/07/2020 0:08 [facility] Calcium 9.8 8.5 - 10.5 mg/dL 12/07/2020 0:08 [facility] Calculated Calcium 9.9 8.5 - 10.5 mg/dL 12/07/2020 0:08 [facility] BUN 11 10 - 26 mg/dL 12/07/2020 0:08 [facility] Creatinine 0.45(L) 0.52 - 1.04 mg/dL 12/07/2020 0:08 [facility] eGFR 130 >60 mL/min/1.7 3m2 12/07/2020 0:08 [facility] Comment:eGFR calculated gil curtis CKD-EPI equation for non- Americans. Multiply eGFR by 1.16 for patients. Blood VENOUS BLOOD / Unknown Venipuncture / Unknown 12/06/2020 23:42 EDT 12/06/2020 23:45 EDT Fran Juanito Familia MD CHEMISTRY & BLOOD GAS ORDERABLES Final Result [facility] [address] [place] [address] * EKG 12-LEAD (12/06/2020 21:43 EDT) 12/06/2020 21:4 3 EDT Narrative [facility] EKG - 12/11/2020 16:34 EDT ?[facility] Emergency ? Test Date: ?2020-12-06 Pat Name: ? CRISTY LUO ?Department: ?? ED ? Room: ? AC07 Gender: ? Female ? Licensing Worker: ?? : ?[id number] ? Requested By: FAMILIA GAYLE Order Number: [id number] ? Reading MD: ?? TRACE NOYOLA MD ? Measurements Intervals ?[place] ? Rate: ? 86 ? P: ?8 WY: ? 132 ?QRS: ?15 QRSD: ? 92 [...] Note Carolina Noyola MD - 12/11/2020 [facility] Emergency Test Date: 2020-12-06 Pat Name: CRISTY LUO Department: ED Room: [facility] Gender: Female Licensing Worker: : 1985 Requested By: FAMILIA SANCHEZ Order Number: [id number] Reading MD: CAROLINA NOYOLA MD Measurements Intervals [place] Rate: 86 P: 8 WY: 132 QRS: 15 QRSD: 92 T: -8 [...] MD CARDIAC ECG ORDERABLE S Final Result [facility] EKG * (ABNORMAL) BETA HYDROXYBUTYRATE (12/06/2020 21:30 EDT) Beta Hydroxybutyrate 2.0(H) <0.4 mmol/L 12/06/2020 22:19 EDT [facility] Blood VENOUS BLOOD / Unknown Venipuncture / Unknown 12/06/2020 21:30 EDT 12/06/2020 21:35 EDT Fran Barbosa MD CHEMISTRY & BLOOD GAS ORDERABLES Final Result Performing Organization Address City/[facility]/ZIP Co de Phone Number [facility] [address] [place] [address] * LIPASE (12/06/2020 21:30 EDT) Pathologist [facility] Lipase 97 <251 U/L 12/06/2020 22:06 EDT [facility] Blood VENOUS BLOOD / Unknown Venipuncture / Unknown 12/06/2020 21:30 EDT 12/06/2020 21:35 EDT Fran Barbosa MD CHEMISTRY & BLOOD GAS ORDERABLES Final Result Performing Organization Address City/[facility] Co de Phone Number [facility] [address] [place] [address] * (ABNORMAL) COMPREHENSIVE METABOLIC PANEL (CMP) (12/06/2020 21:30 EDT) Pathologist [facility] Sodium 142 136 - 145 mEq/L 12/06/2020 22:06 EDT [facility] Potassium 3.8 3.5 - 5.0 mEq/L 12/06/2020 22:06 EDT [facility] Chloride 97 96 - 110 mEq/L 12/06/2020 22:06 EDT [facility] CO2 Total 26 22 - 32 mEq/L 12/06/2020 22:06 EDT [facility] Glucose 288(H) 70 - 100 mg/dL 12/06/2020 22:06 [facility] BUN 12 10 - 26 mg/dL 12/06/2020 22:06 [facility] Creatinine 0.50(L) 0.52 - 1.04 mg/dL 12/06/2020 22:06 [facility] eGFR 126 >60 mL/min/1.7 3m2 12/06/2020 22:06 [facility] Comment:eGFR calculated gil curtis CKD-EPI equation for non- Americans. Multiply eGFR by 1.16 for patients. Total Protein 7.7 6.3 - 8.2 g/dL 12/06/2020 22:06 [facility] Albumin 4.9 3.4 - 4.9 g/dL 12/06/2020 22:06 [facility] Alkaline Phosphatase 105 38 - 126 U/L 12/06/2020 22:06 [facility] AST 22 15 - 46 U/L 12/06/2020 22:06 [facility] ALT 21 <35 U/L 12/06/2020 22:06 [facility] Bilirubin, Total <0.5 <1.4 mg/dL 12/07/19 22:06 [facility] Calcium 10.6(H) 8.5 - 10.5 mg/dL 12/06/2020 22:06 [facility] Calculated Calcium 9.9 8.5 - 10.5 mg/dL 12/06/2020 22:06 [facility] Blood VENOUS BLOOD / Unknown Venipuncture / Unknown 12/06/2020 21:30 EDT 12/06/2020 21:35 EDT us Fran Barbosa MD CHEMISTRY & BLOOD GAS ORDERABLES Final Result [facility] [address] [place] [address] * (ABNORMAL) COMPLETE BLOOD COUNT AND DIFFERENTIAL (12/06/2020 21:30 EDT) WBC 14.54(H) 4.00 - 12.40 K/cmm 12/06/2020 21:47 [facility] RBC 4.97 3.86 - 5.04 M/cmm 12/06/2020 21:47 [facility] Hemoglobin 15.5(H) 11.6 - 15.2 gm/dL 12/06/2020 21:47 [facility] HCT 42.8 34.9 - 44.4 % 12/06/2020 21:47 [facility] MCV 86 81 - 98 fl 12/06/2020 21:47 [facility] MCH 31.2 26.7 - 33.3 pg 12/06/2020 21:47 [facility] MCHC 36.2(H) 32.1 - 35.9 gm/dL 12/06/2020 21:47 [facility] RDW-CV 12.2 <14.7 % 12/06/2020 21:47 [facility] RDW-SD 38.5 <50.4 fl 12/06/2020 21:47 [facility] PLT 383(H) 141 - 377 K/cmm 12/06/2020 21:47 [facility] MPV 9.7 9.5 - 12.7 fl 12/06/2020 21:47 [facility] % Neutrophils 84.9 % 12/06/2020 21:47 [facility] % Lymphocytes 10.7 % 12/06/2020 21:47 [facility] % Monocytes 4.0 % 12/06/2020 21:47 [facility] % Eosinophils 0.0 % 12/06/2020 21:47 [facility] % Basophils 0.1 % 12/06/2020 21:47 [facility] % Immature Grans 0.3 % 12/07/19 21:47 [facility] Absolute Neutrophils 12.34(H) 2.20 - 8.85 K/cmm 12/06/2020 21:47 EDT [facility] Absolute Lymphocytes 1.55 1.09 - 3.30 K/cmm 12/06/2020 21:47 EDT [facility] Absolute Monocytes 0.58 0.10 - 0.80 K/formerly [facility] 12/06/2020 21:47 EDT [facility] Absolute Eosinophils 0.00(L) 0.03 - 0.61 K/formerly [facility] 12/06/2020 21:47 EDT [facility] ABS Basophils 0.02 0.01 - 0.11 K/formerly [facility] 12/06/2020 21:47 T [facility] Absolute Immature Grans 0.05 0.00 - 0.06 K/formerly [facility] 12/06/2020 21:47 T [facility] Type of Differential: Auto 12/06/2020 21:47 EDT [facility] Blood VENOUS BLOOD / Unknown Venipuncture / Unknown 12/06/2020 21:30 EDT 12/06/2020 21:35 EDT us Fran Barbosa MD PACKAGES & DNA PROBE ORDERABLES Final Result [facility] [address] [place] [address] * BLOOD BANK HOLD (12/06/2020 21:30 EDT) Hold BB Spec will exp at 23:59, 3 days from collect date 12/06/2020 21:54 EDT [facility] BLOOD BANK Blood VENOUS BLOOD / Unknown Venipuncture / Unknown 12/06/2020 21:30 EDT 12/06/2020 21:37 EDT us Fran Barbosa MD BLOOD BANK TESTS Penny l Result [facility] BLOOD BANK [address] [place] [address] * HOLD SST (12/06/2020 21:30 EDT) Hold Hold 12/06/2020 22:45 EDT [facility] Blood VENOUS BLOOD / Unknown Venipuncture / Unknown 12/06/2020 21:30 EDT 12/06/2020 21:35 EDT us Fran Barbosa MD LAB INFO SERVICE AND SUPPORT & PHONE RESULT Final Result [facility] [address] [place] [address] * HOLD LAVENDER TOP (12/06/2020 21:30 EDT) Hold Hold 12/06/2020 22:45 EDT [facility] Blood VENOUS BLOOD / Unknown Venipuncture / Unknown 12/06/2020 21:30 EDT 12/06/2020 21:35 EDT us Fran Barbosa MD LAB INFO SERVICE AND SUPPORT & PHONE RESULT Final Result [facility] [address] [place] [address] * HOLD GREEN TOP (12/06/2020 21:30 EDT) Hold Hold 12/06/2020 22:45 EDT [facility] Blood VENOUS BLOOD / Unknown Venipuncture / Unknown 12/06/2020 21:30 EDT 12/06/2020 21:35 EDT us Fran Barbosa MD LAB INFO SERVICE AND SUPPORT & PHONE RESULT Final Result [facility] [address] [place] [address] * HOLD BLUE TOP (12/06/2020 21:30 EDT) Hold Hold 12/06/2020 22:45 EDT [facility] Blood VENOUS BLOOD / Unknown Venipuncture / Unknown 12/06/2020 21:30 EDT 12/06/2020 21:35 EDT us Fran Barbosa MD LAB INFO SERVICE AND SUPPORT & PHONE RESULT Final Result [facility] [address] [place] [address] * (ABNORMAL) POCT GLUCOSE, INTERFACED (12/06/2020 21:13 EDT) Glucose, POC 304(H) 70 - 100 mg/dL 12/06/2020 21:17 EDT [facility] HN LAB POC COMMENT (GLUCOSE) Test Performed by Nursing Services 12/06/2020 21:17 EDT [facility] Blood CAPILLARY BLOOD / Unknown 12/06/2020 21:13 EDT 12/06/2020 21:17 EDT us Provider Joe MARTÍNEZ POINT OF CARE TEST ORDERABLE S Final Result Performing Organization Address City/[facility]/ZIP Co de Phone Number [facility] [address] [place] [address] documented in this encounter Visit Diagnoses Diagnosis [...]
--- OUTSIDE RECORDS SUMMARY | 2024-05-31 07:27 | XMS_ITS | Encounter Summary ---
Author Organization [facility] Address [address] [place] [address] Care Team Providers Care Occupational Health Technician Name Role Phone Carrington Calderon MD [...] 20:55 EDT - 01/26/2021 1:16 EDT Emergency [facility] Emergency Department - [address] [id number] Mark Thibodeaux PA-C [address] [place] [phone] Siobhan Hare PA-C [address] [place] [phone] Non-intractable vomiting with nausea, unspecified vomiting [...] through Care Everywhere. * Nausea and Vomiting (Congolese) documented in this encounter Medications at Time [...] 2 READER) misc 1 Device by [facility] (non-drug; combo route) route continuous. 1 Each 10/01/2020 2 flash glucose sensor (FREESTYLE VIGNESH 2 SENSOR) kit 1 Device by [facility] (non-drug; combo route) route continuous. [...] hyperglycemia, with long-term current use of insulin ([facility]) Use 1 pen needle as [...] 02/17/2021 18:1 8 EDT us Scan 2 Supervisor Roving Department PROCEDURE/MINOR SURGICAL OR DERABLES Final Result * (ABNORMAL) POCT URINE DIPSTICK, CLINITEK (01/26/2021 0:21 EDT) Color, UA Yellow Yellow 01/26/2021 0:23 [facility] Clarity, UA Clear Clear 01/26/2021 0:23 [facility] Glucose, UA 2+(A) Negative mg/dL 01/26/2021 0:23 [facility] Bilirubin, UA Negative Negative 01/26/2021 0:23 [facility] Ketones, UA 4+(AA) Negative mg/dL 01/26/2021 0:23 [facility] Specific [place], Urine >=1.030 1.001 - 1.035 01/26/2021 0:23 [facility] Blood, UA Negative Negative 01/26/2021 0:23 [facility] pH, UA 6.0 <=8 01/26/2021 0:23 [facility] Protein, UA Negative Negative mg/dL 01/26/2021 0:23 [facility] Urobilinogen, UA 0.2 0.2 - 1.0 EU/dL 01/26/2021 0:23 [facility] Nitrite, UA Negative Negative 01/26/2021 0:23 EDT [facility] Leuk Esterase Negative Negative 01/26/2021 0:23 EDT [facility] HN LAB COMMENT (CLINITEK, UR) Test performed at Emergency Department 01/26/2021 0:23 EDT [facility] Urine URINE SPECIMEN COLLECTION, CLEAN CATCH / Unknown 01/26/2021 0:21 EDT 01/26/2021 0:23 EDT Mark Thibodeaux PA-C POINT OF CARE TEST ORDERABLE S Final Result Performing Organization Address [facility] de Phone Number [facility] [address] [place] [address] * POCT TEST, CLINITEK (01/26/2021 0:16 EDT) [facility] UPT Result Negative Negative 01/26/2021 0:23 EDT [facility] HN LAB COMMENT (CLINITEK, UPT) Test performed at Emergency Department 01/26/2021 0:23 EDT [facility] Comment:False negative resul ts may occur in women who are beyond 5-8 weeks gestation. Diagnosis of should be based on a correlation of test results with typical clinical signs and symptoms. Urine URINE SPECIMEN COLLECTION, CLEAN CATCH / Unknown 01/26/2021 0:16 EDT 01/26/2021 0:23 EDT Mark Thibodeaux PA-C POINT OF CARE TEST ORDERABLE S Final Result Performing Organization Address [facility] Co de Phone Number [facility] [address] [place] [address] * POCT CSN BARCODE URINE PREG TEST (01/26/2021 0:01 EDT) Urine URINE SPECIMEN COLLECTION, CLEAN CATCH / Unknown Urine Collect / Unknown 01/26/2021 0:01 EDT 01/26/2021 0:01 EDT Mark Thibodeaux PA-C LAB INFO SERVICE AND SUPPORT & PHONE RESULT Final Result Performing Organization Address [facility]/ZIP Co de Phone Number [facility] [address] [place] [address] * POCT CSN BARCODE URINE DIPSTICK (01/26/2021 0:01 EDT) Urine URINE SPECIMEN COLLECTION, CLEAN CATCH / Unknown Urine Collect / Unknown 01/26/2021 0:01 EDT 01/26/2021 0:01 EDT us Mark Thibodeaux PA-C LAB INFO SERVICE AND SUPPORT & PHONE RESULT Final Result Performing Organization Address [facility] Co de Phone Number [facility] [address] [place] [address] * (ABNORMAL) BETA HYDROXYBUTYRATE (01/25/2021 21:55 EDT) Beta Hydroxybutyrate 2.2(H) <0.4 mmol/L 01/25/2021 22:23 EDT [facility] Blood VENOUS BLOOD / Unknown Venipuncture / Unknown 01/25/2021 21:55 EDT 01/25/2021 21:57 EDT us Mark Thibodeaux PA-C CHEMISTRY & BLOOD GAS ORDERA BLES Final Result Performing Organization Address [facility] Co de Phone Number [facility] [address] [place] [address] * (ABNORMAL) BASIC METABOLIC PANEL (BMP) (01/25/2021 21:55 EDT) Sodium 139 136 - 145 mmol/L 01/25/2021 22:18 EDT [facility] Potassium 3.7 3.5 - 5.0 mEq/L 01/25/2021 22:18 EDT [facility] Chloride 103 96 - 110 mEq/L 01/25/2021 22:18 EDT [facility] CO2 Total 22 22 - 32 mEq/L 01/25/2021 22:18 EDT [facility] Glucose 246(H) 70 - 100 mg/dL 01/25/2021 22:18 EDT [facility] Calcium 8.8 8.5 - 10.5 mg/dL 01/25/2021 22:18 EDT [facility] Calculated Calcium 8.9 8.5 - 10.5 mg/dL 01/25/2021 22:18 EDT [facility] BUN 11 10 - 26 mg/dL 01/25/2021 22:18 EDT [facility] Creatinine 0.48(L) 0.52 - 1.04 mg/dL 01/25/2021 22:18 EDT [facility] eGFR 127 >60 mL/min/1.7 3m2 01/25/2021 22:18 EDT [facility] Comment:eGFR calculated gil curtis CKD-EPI equation for non- Americans. Multiply eGFR by 1.16 for patients. Blood VENOUS BLOOD / Unknown Venipuncture / Unknown 01/25/2021 21:55 EDT 01/25/2021 21:57 EDT Mark Thibodeaux PA-C CHEMISTRY & BLOOD GAS ORDERA BLES Final Result [facility] [address] [place] [address] * EKG 12-LEAD (01/25/2021 21:12 EDT) 01/25/2021 21:1 2 EDT Narrative [facility] EKG - 02/17/2021 18:13 EDT ?[facility] Emergency ? Test Date: ?2021-01-25 Pat Name: ? CRISTY LUO ?Department: ?? ED ? Room: ? WB05 Gender: ? Female ? Environmental Management Specialist: ?? : ?1985 ? Requested By: ANA Forman Order Number: [id number] ? Reading MD: ?? AGA FAIRCHILD MD ? Measurements Intervals ?Carr ? Rate: ? 66 ? P: ?74 AR: ? 136 ?QRS: ?5 QRSD: ? 98 [...] Pat Name: CRISTY LUO Department: ED Room: [facility] Gender: Female Environmental Management Specialist: : 1985 Requested By: ANA Forman Order Number: [id number] Reading MD: AGA FAIRCHILD MD Measurements Intervals Carr Rate: 66 P: 74 AR: 136 QRS: 5 QRSD: 98 T: -4 [...] Thibodeaux PA-C CARDIAC ECG ORDERABLES Final Result [facility] EKG documented in this encounter Visit [...] 01/25 documented in this encounter Care Teams Occupational Health Technician Relationship Specialty Start Date End Date Carrington Calderon MD [address] [facility] [address] [place] [phone] PCP - General Internal Medicine - Primary Care 12/09/20 documented as of this encounter
--- OUTSIDE RECORDS SUMMARY | 2024-05-31 07:27 | XMS_ITS | Encounter Summary ---
Author Organization [facility] Address [address] [place] [address] Care Team Providers Care Diesel Truck Crane Operator Name Role Phone Carrington Calderon MD Primary Care Provi anders Reason for Visit * Reason Onset Date Comments Medications Refill 08/25/2021 Encounter Details Date Type Department Care Team (Late st Contact Info) Description 08/25/2021 Refill [facility] Adult Primary Care [address] [phone] Carrington Calderon MD 1 [facility] Level [address] [place] [phone] Medications Refill Social History Tobacco Use Types [...] as of this encounter Care Teams Diesel Truck Crane Operator Relationship Specialty Start Date End Date Carrington Calderon MD 1 [facility] [address] [place] [phone] PCP - General Internal Medicine - Primary Care 12/09/20 documented as of this encounter
--- OUTSIDE RECORDS SUMMARY | 2024-05-31 07:27 | XMS_ITS | Encounter Summary ---
Author Organization [facility] Address [address] [place] [address] Care Team Providers Care Account Manager Education Name Role Phone Carrington Calderon MD Primary Care Provi anders Reason for Visit * Reason Onset Date Comments Heartburn 01/26/2021 Encounter Details Date Type Department Care Team (Late st Contact Info) Description 01/26/2021 Telephone [facility] Adult Primary Care - [place] [address] [place], [place] [phone] Carrington Calderon MD 1 [facility] Level [address] [place] [phone] Heartburn Social History Tobacco Use [...] Miscellaneous Notes * Telephone Encounter - Eryn Navrarete RN - 01/26/2021 1652 EDT Spoke with [...] already taking any heartburn medications? Could do [id number] daily if not. * Telephone Encounter - [...] filedocumented in this encounter Care Teams Account Manager Education Relationship Specialty Start Date End Date Carrington Calderon MD 1 [facility] [address] [place] [phone] PCP - General Internal Medicine - Primary Care 12/09/20 documented as of this encounter
--- OUTSIDE RECORDS SUMMARY | 2024-05-31 07:27 | XMS_ITS | Encounter Summary ---
Author Organization [facility] Address [address] [place] [address] Care Team Providers Care Maintenance Of Way Clerk Name Role Phone Carrington Calderon MD Primary Care Provi anders Reason for Visit * (Routine/Next Available) - Receiving Office to Obtain Authorization Specialty Diagnoses / Procedures Referred By Kit goode Referred To Contact Procedures XR OUTSIDE IMAGES MSK Unknown, Provider, Referral ID Status Reason Start Date Expiration Date Visits Requested Visits Authorized [id number] Receiving Office to Obtain Authorization 09/12/2021 1 1 Encounter Details Date Type Department Care Team (Latest Contact Info) Description 09/12/2021 16:35 EDT - 09/12/2021 23:59 EDT Hospital Encounter [facility] Secondary Reads [place] Discharge Disposition: Home or [...] polyneuropathy associated with type 2 diabetes mellitus ([facility]) Take 300mg in the morning [...] hyperglycemia, with long-term current use of insulin ([facility]) Use 1 pen needle as directed 4 [...] on filedocumented in this encounter Care Teams Maintenance Of Way Clerk Relationship Specialty Start Date End Date Carrington Calderon MD 1 [facility] [address] [place] [phone] PCP - General Internal Medicine - Primary Care 12/09/20 documented as of this encounter
--- OUTSIDE RECORDS SUMMARY | 2024-05-31 07:28 | XMS_ITS | Encounter Summary ---
Author Organization [facility] Address [address] [place] [address] Care Team Providers Care Hand Spring Repairer Helper Name Role Phone Unavailable Primary Care Provider Unavailabl e Reason for Visit * Reason Comments Back Pain Encounter Details Date Type Department Care Team (Late st Contact Info) Description 11/04/2020 14:15 EDT Office Visit [facility] Adult Primary Care - [address] [phone] Tonja Alejandro PA-C [address] [place] [address] [place] [phone] Chronic midline low back pain with [...] the lumbarspine. We will get done at [place] [facility] -Continue physical therapy Tonja Alejandro PA-C [facility] 11/04/2020 14:45 I spent a total of [...]
--- OUTSIDE RECORDS SUMMARY | 2024-05-31 07:28 | XMS_ITS | Encounter Summary ---
Author Organization [facility] Address [address] [place] [address] Care Team Providers Care Gem Technician Name Role Phone Unavailable Primary Care [...] Expiration Date Visits Re quested Visits Authorized [id number] 1 1 Encounter Details Date Type Department Care Team (Late st Contact Info) Description 10/02/2020 18:44 EDT - 10/03/2020 12:37 EDT Hospital Encounter [facility] [address] [place] [address] Jonas Ambrosio MD 111 [facility], Level [address] [place] [address] Bonita See MD [address] [address] Intractable vomiting (Primary Dx); Intractable [...] post salpingectomy 08/24 who admitted to the [facility] with intractable nausea and vomiting. [...] hyperglycemia, with long-term current use of insulin ([facility]) Use 1 pen needle as directed [...] Disposition Code Departure Means Destination Home-Health Care [facility] documented in this encounter Progress Notes * Carlos Gabriel - 10/03/2020 1237 EDT Case Management Note: Patient was discharged home to self care prior to initial CM assessment. This science writer reviewed the patient's chart and discussed the patient's situation with the medical team. No case management dc needs were identified. Carlos Gabriel RN, [facility], [facility] Pager # [phone] * Shirley Monte RN - 10/03/2020 0626 [...] a referral for therapy. ??? Diabetes ([facility]) A1c 10.3 on 11/28/2019 - poorly controlled ??? Diabetes mellitus, type 2 ([facility]) pt check blood sugars at home- [...] IDDM2 c/b neuropathy - SSI - restart SKETCHER lantis 42 U and aspart 9 U TID once resumes eating (hold and use SSI until see trend considering glucose values overnight and recurrent N/V after arrival to floor) - held sitagliptin Counseled on monitoring left second digit Back pain - SKETCHER gabapentin Anxiety - SKETCHER lorazepam Diet: Consistent carb diet VTE Prophylaxis: lovenox Consults: none CODE STATUS: Full Prognosis/Disposition: likely discharge home tomorrow is she is medically stable. Admission Status Inpatient. Anticipated duration of hospitalization is greater than two midnights due to intractablevomiting. Keerthi Alejandro, MS 4 Acting Customer Leader 10/03/2020 1:45 Cortex; Pager #[phone] Attending Attestation Date of service: 10/03/20 I [...] to reach out on next appointment at [facility] for suggestions. She does hold for [...] with her endo in November. Vicki CLARKE senior investment manager Nurse Clinician #[id number] documented in this encounter Plan of Treatment Not on file documented as of this encounter Procedures Procedure Name Priority Date/Time Associated Diagnosis Comments ECG REPORT - SCANNED 10/27/2020 16:38 EDT COMPLETE BLOOD COUNT Routine 10/03/2020 7:15 EDT BUN Routine 10/03/2020 7:15 EDT CREATININE Routine 10/03/2020 7:15 EDT ELECTROLYTES Routine 10/03/2020 7:15 EDT POCT GLUCOSE, INTERFACED Routine 10/03/2020 6:02 EDT ZZCOVID-19 TEST [facility] PCR Today 10/02/2020 22:44 EDT COVID-19 [...] 10/27/2020 16:3 8 EDT us Scan 2 Classifier Operator PROCEDURE/MINOR SURGICAL OR DERABLES Final Result * (ABNORMAL) COMPLETE BLOOD COUNT (10/03/2020 7:15 EDT) WBC 12.78(H) 4.00 - 12.40 K/cmm 10/03/2020 8:32 [facility] RBC 4.06 3.86 - 5.04 M/cmm 10/03/2020 8:32 [facility] Hemoglobin 13.1 11.6 - 15.2 gm/dL 10/03/2020 8:32 [facility] HCT 35.2 34.9 - 44.4 % 10/03/2020 8:32 [facility] MCV 87 81 - 98 fl 10/03/2020 8:32 [facility] MCH 32.3 26.7 - 33.3 pg 10/03/2020 8:32 [facility] MCHC 37.2(H) 32.1 - 35.9 gm/dL 10/03/2020 8:32 [facility] RDW-CV 12.2 <14.7 % 10/03/2020 8:32 [facility] RDW-SD 38.9 <50.4 fl 10/03/2020 8:32 [facility] PLT 372 141 - 377 K/cmm 10/03/2020 8:32 [facility] MPV 9.4(L) 9.5 - 12.7 fl 10/03/2020 8:32 [facility] Blood VENOUS BLOOD / Unknown Venipuncture / Unknown 10/03/2020 7:15 EDT 10/03/2020 8:21 EDT us Bonita See MD HEMATOLOGY & PF4 ORDERABLES F inal Result [facility] [address] [place] [address] * (ABNORMAL) BUN (10/03/2020 7:15 EDT) Pathologist [facility] BUN 6(L) 10 - 26 mg/dL 10/03/2020 9:07 EDT [facility] Blood VENOUS BLOOD / Unknown Venipuncture / Unknown 10/03/2020 7:15 EDT 10/03/2020 8:23 EDT us Bonita See MD CHEMISTRY & BLOOD GAS ORDERAB LES Final Result Performing Organization Address [facility] de Phone Number [facility] [address] [place] [address] * (ABNORMAL) CREATININE (10/03/2020 7:15 EDT) Pathologist [facility] Creatinine 0.43(L) 0.52 - 1.04 mg/dL 10/03/2020 9:07 EDT [facility] eGFR 132 >60 mL/min/1.7 3m2 10/03/2020 9:07 EDT [facility] Comment:eGFR calculated gil curtis CKD-EPI equation for non- Americans. Multiply eGFR by 1.16 for patients. Blood VENOUS BLOOD / Unknown Venipuncture / Unknown 10/03/2020 7:15 EDT 10/03/2020 8:23 EDT us Bonita See MD CHEMISTRY & BLOOD GAS ORDERAB LES Final Result Performing Organization Address City/[facility] Co de Phone Number [facility] [address] [place] [address] * (ABNORMAL) ELECTROLYTES (10/03/2020 7:15 EDT) Pathologist [facility] Sodium 135(L) 136 - 145 mEq/L 10/03/2020 9:07 EDT [facility] Potassium 3.7 3.5 - 5.0 mEq/L 10/03/2020 9:07 EDT [facility] Chloride 98 96 - 110 mEq/L 10/03/2020 9:07 EDT [facility] CO2 Total 23 22 - 32 mEq/L 10/03/2020 9:07 EDT [facility] Blood VENOUS BLOOD / Unknown Venipuncture / Unknown 10/03/2020 7:15 EDT 10/03/2020 8:23 EDT Bonita See MD CHEMISTRY & BLOOD GAS ORDERAB LES Final Result Performing Organization Address [facility] Co de Phone Number [facility] [address] [place] [address] * (ABNORMAL) POCT GLUCOSE, INTERFACED (10/03/2020 6:02 EDT) Glucose, POC 177(H) 70 - 100 mg/dL 10/03/2020 6:08 EDT [facility] safety and security officer ID [id number] 10/03/2020 6:08 EDT [facility] HN LAB POC COMMENT (GLUCOSE) Test Performed by Nursing Services 10/03/2020 6:08 EDT [facility] Blood CAPILLARY BLOOD / Unknown 10/03/2020 6:02 EDT 10/03/2020 6:08 EDT Bonita See MD POINT OF CARE TEST ORDERABLES Final Result Performing Organization Address [facility]/ZIP Co de Phone Number [facility] [address] [place] [address] * COVID-19 TEST [facility] PCR (10/02/2020 22:44 EDT) Swab ENTIRE NASOPHARYNX / Unknown Swab / Unknown 10/02/2020 22:44 EDT 10/02/2020 22:46 EDT Beverly Marvin MD MICROBIOLOGY - GE NERAL ORDERABLES Final Result Performing Organization Address City/[facility]/ZIP Co de Phone Number [facility] [address] [place] [address] * COVID-19 TESTING (10/02/2020 22:44 EDT) COVID-19 rt-PCR Result Negative Negative 10/03/2020 1:45 EDT [facility] Comment: This test [...] history, and epidemiological information. Performed on the Krillion instrument Performing Lab [place] [facility] 10/03/2020 1:45 EDT [facility] Swab ENTIRE NASOPHARYNX / Unknown Swab / Unknown 10/02/2020 22:44 EDT 10/02/2020 22:46 EDT Beverly Marvin MD MICROBIOLOGY - [facility] ORDERABLES Final Result Performing Organization Address City/State/[facility] Co de Phone Number [facility] [address] [place] [address] * CT ABDOMEN PELVIS W CONTRAST (10/02/2020 [...] suspicious osseous lesion. Multilevel discogenic endplate changes. Cooling Tower Operator: No additional findings. Procedure Note Wilian [...] or suspicious osseous lesion.Multilevel discogenic endplate changes. Cooling Tower Operator: No additional findings. IMPRESSION 1. No acute inflammatory process identified in the abdomen and pelvis. 2. Nonobstructing left renal calculus, unchanged. I have personally reviewed the images and the above interpretation andagree with the findings. us Beverly Marvin MD IMG CT ORDERABLES Final Result * QUANT BETA HCG, (10/02/2020 19:51 EDT) Beta HCG Quant, <5 <5 mIU/ml 10/02/2020 20:26 EDT [facility] Comment: NOTE: : Negative: Less [...] GAS ORDERABLES Final Result Performing Organization Address [facility] Co de Phone Number [facility] [address] [place] [address] * LACTIC ACID (10/02/2020 19:10 EDT) Pathologist [facility] Lactic Acid 1.2 <=2.0 mmol/L 10/02/2020 19:28 EDT [facility] Blood VENOUS BLOOD / Unknown Venipuncture / Unknown 10/02/2020 19:10 EDT 10/02/2020 19:16 EDT us Beverly Marvin MD CHEMISTRY & BLOOD GAS ORDERABLES Final Result Performing Organization Address [facility] Co de Phone Number [facility] [address] [place] [address] * HOLD BLUE TOP (10/02/2020 19:10 EDT) Hold Hold 10/02/2020 20:17 EDT [facility] Blood VENOUS BLOOD / Unknown Venipuncture / Unknown 10/02/2020 19:10 EDT 10/02/2020 19:15 EDT Jonas Ambrosio MD LAB INFO SERVICE AND SUPPORT & PHONE RESULT Final Result [facility] [address] [place] [address] * (ABNORMAL) SCREENING GLUCOSE (10/02/2020 19:10 EDT) [facility] Glucose, Screening 189(H) 70 - 100 mg/dL 10/02/2020 19:32 EDT [facility] Comment:Elevated screening g lucose value greater than 180 mg/dl, please order follow up Hemoglobin A1C. Blood VENOUS BLOOD / Unknown Venipuncture / Unknown 10/02/2020 19:10 EDT 10/02/2020 19:16 EDT Jonas Ambrosio MD CHEMISTRY & BLOOD GAS ORDERAB LES Final Result [facility] [address] [place] [address] * MAGNESIUM (10/02/2020 19:10 EDT) [facility] Magnesium 1.8 1.7 - 2.8 mg/dL 10/02/2020 19:28 EDT [facility] Blood VENOUS BLOOD / Unknown Venipuncture / Unknown 10/02/2020 19:10 EDT 10/02/2020 19:16 EDT us Jonas Ambrosio MD CHEMISTRY & BLOOD GAS ORDERAB LES Final Result [facility] [address] [place] [address] * TROPONIN I (10/02/2020 19:10 EDT) Troponin I (ng/mL) <0.034 <0.034 ng/mL 10/02/2020 19:40 EDT [facility] Blood VENOUS BLOOD / Unknown Venipuncture / Unknown 10/02/2020 19:10 EDT 10/02/2020 19:16 EDT Narrative [facility] - 10/02/2020 19:40 EDT The results of this assay can be falsely lowered due to the consumption of Biotin. us Jonas Ambrosio MD CHEMISTRY & BLOOD GAS ORDERAB LES Final Result Performing Organization Address [facility] Co de Phone Number [facility] [address] [place] [address] * (ABNORMAL) ELECTROLYTES (10/02/2020 19:10 EDT) Sodium 132(L) 136 - 145 mEq/L 10/02/2020 19:28 EDT [facility] Potassium 3.4(L) 3.5 - 5.0 mEq/L 10/02/2020 19:28 T [facility] Chloride 95(L) 96 - 110 mEq/L 10/02/2020 19:28 T [facility] CO2 Total 30 22 - 32 mEq/L 10/02/2020 19:28 T [facility] Blood VENOUS BLOOD / Unknown Venipuncture / Unknown 10/02/2020 19:10 EDT 10/02/2020 19:16 EDT us Jonas Ambrosio MD CHEMISTRY & BLOOD GAS ORDERAB LES Final Result Performing Organization Address [facility] Co de Phone Number [facility] [address] [place] [address] * (ABNORMAL) CREATININE (10/02/2020 19:10 EDT) Creatinine 0.45(L) 0.52 - 1.04 mg/dL 10/02/2020 19:28 EDT [facility] eGFR 130 >60 mL/min/1.7 3m2 10/02/2020 19:28 EDT [facility] Comment:eGFR calculated gil curtis CKD-EPI equation for non- Americans. Multiply eGFR by 1.16 for patients. Blood VENOUS BLOOD / Unknown Venipuncture / Unknown 10/02/2020 19:10 EDT 10/02/2020 19:16 EDT Jonas Ambrosio MD CHEMISTRY & BLOOD GAS ORDERAB LES Final Result Performing Organization Address [facility] Co de Phone Number [facility] [address] [place] [address] * (ABNORMAL) BUN (10/02/2020 19:10 EDT) Pathologist [facility] BUN 6(L) 10 - 26 mg/dL 10/02/2020 19:28 EDT [facility] Blood VENOUS BLOOD / Unknown Venipuncture / Unknown 10/02/2020 19:10 EDT 10/02/2020 19:16 EDT Jonas Ambrosio MD CHEMISTRY & BLOOD GAS ORDERAB LES Final Result Performing Organization Address City/[facility] Co de Phone Number [facility] [address] [place] [address] * (ABNORMAL) COMPLETE BLOOD COUNT AND DIFFERENTIAL (10/02/2020 19:10 EDT) WBC 13.29(H) 4.00 - 12.40 K/cmm 10/02/2020 19:32 T [facility] RBC 4.09 3.86 - 5.04 M/cmm 10/02/2020 19:32 T [facility] Hemoglobin 12.7 11.6 - 15.2 gm/dL 10/02/2020 19:32 T [facility] HCT 36.1 34.9 - 44.4 % 10/02/2020 19:32 T [facility] MCV 88 81 - 98 fl 10/02/2020 19:32 [facility] MCH 31.1 26.7 - 33.3 pg 10/02/2020 19:32 [facility] MCHC 35.2 32.1 - 35.9 gm/dL 10/02/2020 19:32 [facility] RDW-CV 12.3 <14.7 % 10/02/2020 19:32 [facility] RDW-SD 39.6 <50.4 fl 10/02/2020 19:32 [facility] PLT 355 141 - 377 K/cmm 10/02/2020 19:32 [facility] MPV 9.2(L) 9.5 - 12.7 fl 10/02/2020 19:32 [facility] % Neutrophils 57.2 % 10/02/2020 19:32 [facility] % Lymphocytes 32.1 % 10/02/2020 19:32 [facility] % Monocytes 9.0 % 10/02/2020 19:32 [facility] % Eosinophils 0.8 % 10/02/2020 19:32 [facility] % Basophils 0.5 % 10/02/2020 19:32 [facility] % Immature Grans 0.4 % 10/03/19 19:32 [facility] Absolute Neutrophils 7.62 2.20 - 8.85 K/cmm 10/02/2020 19:32 [facility] Absolute Lymphocytes 4.27(H) 1.09 - 3.30 K/cmm 10/02/2020 19:32 [facility] Absolute Monocytes 1.19(H) 0.10 - 0.80 K/cmm 10/02/2020 19:32 [facility] Absolute Eosinophils 0.10 0.03 - 0.61 K/cmm 10/02/2020 19:32 [facility] ABS Basophils 0.06 0.01 - 0.11 K/cmm 10/02/2020 19:32 [facility] Absolute Immature Grans 0.05 0.00 - 0.06 K/cmm 10/02/2020 19:32 EDT [facility] Type of Differential: Auto 10/02/2020 19:32 EDT [facility] Blood VENOUS BLOOD / Unknown Venipuncture / Unknown 10/02/2020 19:10 EDT 10/02/2020 19:15 EDT us Jonas Ambrosio MD PACKAGES & DNA PROBE ORDERABL ES Final Result [facility] [address] [place] [address] * EKG 12-LEAD (10/02/2020 19:04 EDT) 10/02/2020 19:0 4 EDT Narrative [facility] EKG - 10/27/2020 16:30 EDT ?[facility] Emergency ? Test Date: ?2020-10-02 Pat Name: ? CRISTY LUO ?Department: ?? ED ? Room: ? AC06 Gender: ? Female ? Slunk Skinner: ?? [id number] : ?1985 ? Requested By: BO Santizo Order Number: [id number] ? Sammie MARTÍNEZ: ?? CINDYDANY SNYDER MD ? Measurements Intervals ?[place] ? Rate: ? 92 ? P: ?59 MA: ? 155 ?QRS: ?10 QRSD: ? 91 [...] Name: CRISTY LUO Department: ED Room: [facility] Gender: Female Slunk Skinner: [id number] : 1985 Requested By: BO Santizo Order Number: [id number] Reading MD: CINDY SNYDER MD Measurements Intervals [place] Rate: 92 P: 59 MA: 155 QRS: 10 QRSD: 91 T: 0 QT: 356 QTc: 442 Interpretive Statements SINUS RHYTHM Compared to ECG 10/02/2020 19:04:21 No significant changes I reviewed the tracing and have either agreed or edited the findings inthis report. Electronically Signed On 10-27-2020 16:30:39 EDT by CINDY SANDOVAL. Jonas Ambrosio MD CARDIAC ECG ORDERABLES Final Result [facility] EKG * (ABNORMAL) COMPREHENSIVE METABOLIC PANEL (CMP) (10/01/2020 11:51 EDT) Sodium 139 136 - 145 mEq/L 10/02/2020 19:47 [facility] Potassium 3.5 3.5 - 5.0 mEq/L 10/02/2020 19:47 [facility] Comment: NOTE: Interpret with caution. Prolonged sample storage may alter the result. Chloride 97 96 - 110 mEq/L 10/02/2020 19:47 [facility] CO2 Total 23 22 - 32 mEq/L 10/02/2020 19:47 [facility] Comment: NOTE: Interpret with caution. Prolonged sample storage may alter the result. Glucose 221(H) 70 - 100 mg/dL 10/02/2020 19:47 [facility] BUN 13 10 - 26 mg/dL 10/02/2020 19:47 [facility] Creatinine 0.50(L) 0.52 - 1.04 mg/dL 10/02/2020 19:47 [facility] eGFR 126 >60 mL/min/1.7 3m2 10/02/2020 19:47 [facility] Comment:eGFR calculated gil curtis CKD-EPI equation for non- Americans. Multiply eGFR by 1.16 for patients. Total Protein 6.6 6.3 - 8.2 g/dL 10/02/2020 19:47 [facility] Albumin 4.1 3.4 - 4.9 g/dL 10/02/2020 19:47 [facility] Alkaline Phosphatase 86 38 - 126 U/L 10/02/2020 19:47 [facility] AST 31 15 - 46 U/L 10/02/2020 19:47 [facility] ALT 24 <35 U/L 10/02/2020 19:47 [facility] Bilirubin, Total 0.5 <1.4 mg/dL 10/03/19 19:47 [facility] Calcium 9.6 8.5 - 10.5 mg/dL 10/02/2020 19:47 [facility] Calculated Calcium 9.5 8.5 - 10.5 mg/dL 10/02/2020 19:47 [facility] Blood VENOUS BLOOD / Unknown Venipuncture / Unknown 10/01/2020 11:51 EDT 10/01/2020 11:57 EDT Beverly Marvin MD CHEMISTRY & BLOOD GAS ORDERABLES Final Result Performing Organization Address City/[facility]/ZIP Co de Phone Number [facility] [address] [place] [address] * LIPASE (10/01/2020 11:51 EDT) Lipase 174 <251 U/L 10/02/2020 19:46 EDT [facility] Blood VENOUS BLOOD / Unknown Venipuncture / Unknown 10/01/2020 11:51 EDT 10/01/2020 11:57 EDT Beverly Marvin MD CHEMISTRY & BLOOD GAS ORDERABLES Final Result [facility] [address] [place] [address] documented in this encounter Visit Diagnoses Diagnosis Intractable vomiting- Primary Persistent vomiting Intractable vomiting Persistent vomiting Intractable vomiting with nausea, unspecified vomiting type Diabetic foot infection (HCC-CMS) Type II or unspecified type diabetes mellitus with other specified manifestations, not stated as uncontrolled 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, 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 ([facility]) Vomiting Vomiting alone documented in this encounter [...] NOW X1, 1 dose, On Tue10/02/20 at [id number] (Given - Provider: Fermin Ramirez RN) electrolyte-A [...] FLEXPEN) injection 1 10/03/2020 polyethylene glycol 3350 (MA RALAX) packet 17 g 1 10/03/2020 potassium chloride SA (K-DUR ) tablet 40 mEq 1 10/03/2020 ramelteon (ROZEREM) tablet 8 mg 1 Diet Count Last Ordered Date First Orde red Date DISCHARGE DIET 1 10/03/2020 Nursing Count Last Ordered Date First Orde red Date ACTIVITY INSTRUCTIONS 1 10/03/2020 BATHING INSTRUCTIONS 1 10/03/2020 DRIVING INSTRUCTIONS 1 10/03/2020 NOTIFY EVS ATTENDANT 1 10/02/2020 Admission Count Last Ordered Date [...]
--- OUTSIDE RECORDS SUMMARY | 2024-05-31 07:28 | XMS_ITS | Encounter Summary ---
Author Organization [facility] Address [address] [place] [address] Care Team Providers Care Packaging Designer Name Role Phone Unavailable Primary Care [...]
--- OUTSIDE RECORDS SUMMARY | 2024-05-31 07:28 | XMS_ITS | Encounter Summary ---
Author Organization [facility] Address [address] [place] [address] Care Team Providers Care Cold Mill Operator Name Role Phone Unavailable Primary Care Provider Unavailabl e Reason for Visit * Reason Onset Date Comments Medication Questions 10/22/2020 Encounter Details Date Type Department Care Team (Late st Contact Info) Description 10/22/2020 Telephone [facility] Adult Primary Care - [address] [id number] Tonja Alejandro PA-C [address] [place] [address] [place] [phone] Medication Questions Social History Tobacco Use [...]
--- OUTSIDE RECORDS SUMMARY | 2024-05-31 07:28 | XMS_ITS | Encounter Summary ---
Author Organization [facility] Address [address] [place] [address] Care Team Providers Care Mixing Pan Tender Name Role Phone Unavailable Primary Care [...] 7:17 EDT - 09/30/2020 12:44 EDT Emergency [facility] Emergency Department - Main [address] [id number] Doris Moreno MD [address] [facility], Level [address] [place] [address] [...] Entry Date Author No 08/09/2020 0:58 Niesha eYn RN documented in this encounter Discharge Instructions [...] be sent through Care Everywhere. * Gastroparesis (Serbian) * Nausea and Vomiting (Serbian) documented in this encounter Medications at Time [...] use of insulin ([facility]) Use 1 pen needle as directed [...] conditions at the [facility] on 09/30/2020 Scribe attestation: This documentation [...] Glucose, POC 316 (*) Final Tech ID [id number] Final HN LAB POC COMMENT (GLUCOSE) Test Performed by Nursing Services Final POCT BLOOD GAS, EG6 I-STAT - Abnormal pH, i-STAT 7.53 (*) Final pCO2, i-STAT 35 Final pO2, i-STAT 34 (*) Final TCO2, i-STAT 30 (*) Final O2 Saturation, i-STAT 74 (*) Final Base Excess, i-STAT 6 (*) Final Sample Source VENOUS Final Tech ID [id number] Final Comment (EG6) Final Value: Test Performed by Respiratory. For non-arterial reference ranges, please see ISTAT procedure POCT GLUCOSE, INTERFACED - Abnormal Glucose, POC 210 (*) Final Tech ID [id number] Final HN LAB POC COMMENT (GLUCOSE) Test Performed by Nursing Services Final POCT GLUCOSE, INTERFACED - Abnormal Glucose, POC 202 (*) Final Tech ID [id number] Final HN LAB POC COMMENT (GLUCOSE) Test [...] 10/04/2020 16:2 9 EDT us Scan 2 Synthetic Cloth Binding Cutter PROCEDURE/MINOR SURGICAL OR DERABLES Final Result * (ABNORMAL) POCT GLUCOSE, INTERFACED (09/30/2020 11:30 EDT) Glucose, POC 202(H) 70 - 100 mg/dL 09/30/2020 11:31 EDT [facility] outpatient dietitian ID [id number] 09/30/2020 11:31 EDT [facility] HN LAB POC COMMENT (GLUCOSE) Test Performed by Nursing Services 09/30/2020 11:31 EDT [facility] Blood CAPILLARY BLOOD / Unknown 09/30/2020 11:30 EDT 09/30/2020 11:31 EDT us Doris Moreno MD POINT OF CARE TEST ORDERABLES F inal Result [facility] [address] [place] [address] * (ABNORMAL) POCT GLUCOSE, INTERFACED (09/30/2020 10:48 EDT) Glucose, POC 210(H) 70 - 100 mg/dL 09/30/2020 11:31 EDT [facility] outpatient dietitian ID [id number] 09/30/2020 11:31 EDT [facility] HN LAB POC COMMENT (GLUCOSE) Test Performed by Nursing Services 09/30/2020 11:31 EDT [facility] Blood CAPILLARY BLOOD / Unknown 09/30/2020 10:48 EDT 09/30/2020 11:31 EDT Doris Moreno MD POINT OF CARE TEST ORDERABLES F inal Result Performing Organization Address City/[facility] Co de Phone Number [facility] [address] [place] [address] * TROPONIN I (09/30/2020 8:55 EDT) Troponin I (ng/mL) <0.034 <0.034 ng/mL 09/30/2020 9:24 EDT [facility] Blood VENOUS BLOOD / Unknown Venipuncture / Unknown 09/30/2020 8:55 EDT 09/30/2020 8:58 EDT Narrative [facility] - 09/30/2020 9:24 EDT The results of this assay can be falsely lowered due to the consumption of Biotin. Doris Moreno MD CHEMISTRY & BLOOD GAS ORDERABLE S Final Result Performing Organization Address [facility] Co de Phone Number [facility] [address] [place] [address] * (ABNORMAL) BETA HYDROXYBUTYRATE (09/30/2020 8:45 EDT) Beta Hydroxybutyrate 0.7(H) <0.4 mmol/L 09/30/2020 9:14 EDT [facility] Blood VENOUS BLOOD / Unknown Venipuncture / Unknown 09/30/2020 8:45 EDT 09/30/2020 8:50 EDT Doris Moreno MD CHEMISTRY & BLOOD GAS ORDERABLE S Final Result Performing Organization Address [facility]/ZIP Co de Phone Number [facility] [address] [place] [address] * LIPASE (09/30/2020 8:45 EDT) Lipase 108 <251 U/L 09/30/2020 9:09 EDT [facility] Blood VENOUS BLOOD / Unknown Venipuncture / Unknown 09/30/2020 8:45 EDT 09/30/2020 8:50 EDT us Doris Moreno MD CHEMISTRY & BLOOD GAS ORDERABLE S Final Result [facility] [address] [place] [address] * (ABNORMAL) SCREENING GLUCOSE (09/30/2020 8:45 EDT) Glucose, Screening 268(H) 70 - 100 mg/dL 09/30/2020 9:10 EDT [facility] Comment:Elevated screening g lucose value greater than 180 mg/dl, please order follow up Hemoglobin A1C. Blood VENOUS BLOOD / Unknown Venipuncture / Unknown 09/30/2020 8:45 EDT 09/30/2020 8:50 EDT us Doris Moreno MD CHEMISTRY & BLOOD GAS ORDERABLE S Final Result [facility] [address] [place] [address] * (ABNORMAL) MAGNESIUM (09/30/2020 8:45 EDT) Magnesium 1.6(L) 1.7 - 2.8 mg/dL 09/30/2020 9:09 EDT [facility] Blood VENOUS BLOOD / Unknown Venipuncture / Unknown 09/30/2020 8:45 EDT 09/30/2020 8:50 EDT us Doirs Moreno MD CHEMISTRY & BLOOD GAS ORDERABLE S Final Result [facility] [address] [place] [address] * ELECTROLYTES (09/30/2020 8:45 EDT) Sodium 144 136 - 145 mEq/L 09/30/2020 9:09 EDT [facility] Potassium 4.0 3.5 - 5.0 mEq/L 09/30/2020 9:09 EDT [facility] Chloride 104 96 - 110 mEq/L 09/30/2020 9:09 EDT [facility] CO2 Total 24 22 - 32 mEq/L 09/30/2020 9:09 EDT [facility] Blood VENOUS BLOOD / Unknown Venipuncture / Unknown 09/30/2020 8:45 EDT 09/30/2020 8:50 EDT us Doris Moreno MD CHEMISTRY & BLOOD GAS ORDERABLE S Final Result Performing Organization Address City/[facility]/ZIP Co de Phone Number [facility] [address] [place] [address] * (ABNORMAL) CREATININE (09/30/2020 8:45 EDT) Creatinine 0.43(L) 0.52 - 1.04 mg/dL 09/30/2020 9:09 EDT [facility] eGFR 132 >60 mL/min/1.7 3m2 09/30/2020 9:09 EDT [facility] Comment:eGFR calculated gil curtis CKD-EPI equation for non- Americans. Multiply eGFR by 1.16 for patients. Blood VENOUS BLOOD / Unknown Venipuncture / Unknown 09/30/2020 8:45 EDT 09/30/2020 8:50 EDT us Doris Moreno MD CHEMISTRY & BLOOD GAS ORDERABLE S Final Result [facility] [address] [place] [address] * BUN (09/30/2020 8:45 EDT) BUN 16 10 - 26 mg/dL 09/30/2020 9:09 EDT [facility] Blood VENOUS BLOOD / Unknown Venipuncture / Unknown 09/30/2020 8:45 EDT 09/30/2020 8:50 EDT us Doris Moreno MD CHEMISTRY & BLOOD GAS ORDERABLE S Final Result [facility] [address] [place] [address] * XR FOOT LEFT 1-2 VIEWS (09/30/2020 [...] 7:40 EDT) Hold Hold 09/30/2020 8:47 EDT [facility] Blood VENOUS BLOOD / Unknown Venipuncture / Unknown 09/30/2020 7:40 EDT 09/30/2020 7:45 EDT Doris Moreno MD LAB INFO SERVICE AND SUPPORT & PHONE RESULT Final Result [facility] [address] [place] [address] * (ABNORMAL) COMPLETE BLOOD COUNT AND DIFFERENTIAL (09/30/2020 7:40 EDT) WBC 15.61(H) 4.00 - 12.40 K/cmm 09/30/2020 8:01 [facility] RBC 4.40 3.86 - 5.04 M/cmm 09/30/2020 8:01 [facility] Hemoglobin 13.7 11.6 - 15.2 gm/dL 09/30/2020 8:01 [facility] HCT 38.6 34.9 - 44.4 % 09/30/2020 8:01 [facility] MCV 88 81 - 98 fl 09/30/2020 8:01 [facility] MCH 31.1 26.7 - 33.3 pg 09/30/2020 8:01 [facility] MCHC 35.5 32.1 - 35.9 gm/dL 09/30/2020 8:01 [facility] RDW-CV 12.6 <14.7 % 09/30/2020 8:01 [facility] RDW-SD 40.1 <50.4 fl 09/30/2020 8:01 [facility] PLT 391(H) 141 - 377 K/cmm 09/30/2020 8:01 [facility] MPV 10.0 9.5 - 12.7 fl 09/30/2020 8:01 [facility] % Neutrophils 87.2 % 09/30/2020 8:01 [facility] % Lymphocytes 9.6 % 09/30/2020 8:01 [facility] % Monocytes 2.6 % 09/30/2020 8:01 [facility] % Eosinophils 0.0 % 09/30/2020 8:01 [facility] % Basophils 0.2 % 09/30/2020 8:01 [facility] % Immature Grans 0.4 % 10/01/19 8:01 [facility] Absolute Neutrophils 13.61(H) 2.20 - 8.85 K/cmm 09/30/2020 8:01 [facility] Absolute Lymphocytes 1.50 1.09 - 3.30 K/cmm 09/30/2020 8:01 [facility] Absolute Monocytes 0.41 0.10 - 0.80 K/cmm 09/30/2020 8:01 [facility] Absolute Eosinophils 0.00(L) 0.03 - 0.61 K/cmm 09/30/2020 8:01 [facility] ABS Basophils 0.03 0.01 - 0.11 K/cmm 09/30/2020 8:01 [facility] Absolute Immature Grans 0.06 0.00 - 0.06 K/cmm 09/30/2020 8:01 EDT [facility] Type of Differential: Auto 09/30/2020 8:01 [facility] Blood VENOUS BLOOD / Unknown Venipuncture / Unknown 09/30/2020 7:40 EDT 09/30/2020 7:45 EDT us Doris Moreno MD PACKAGES & DNA PROBE ORDERABLES Final Result [facility] [address] [place] [address] * (ABNORMAL) POCT BLOOD GAS, EG6 I-STAT (09/30/2020 7:34 EDT) iSTAT pH 7.53(H) 7.35 - 7.45 09/30/2020 7:38 [facility] iSTAT pCO2 35 35 - 45 mmHg 09/30/2020 7:38 [facility] i-STAT pO2 34(L) 80 - 105 mmHg 09/30/2020 7:38 [facility] iSTAT TCO2 30(H) 23 - 27 mmol/L 09/30/2020 7:38 [facility] i-STAT O2 Saturation 74(L) 95 - 98 % 09/30/2020 7:38 [facility] Base Excess 6(H) -2 - 3 mmol/L 09/30/2020 7:38 [facility] Sample Source VENOUS 09/30/2020 7:38 [facility] outpatient dietitian ID [id number] 09/30/2020 7:38 [facility] Comment (EG6) Test Performed by Respiratory. For non-arterial reference ranges, please see ISTAT procedure 09/30/2020 7:38 [facility] Comment:For arterial collect ion, the [...] OF CARE TEST ORDERABLES F inal Result [facility] [address] [place] [address] * EKG 12-LEAD (09/30/2020 7:29 EDT) 09/30/2020 7:29 EDT Narrative [facility] - 10/04/2020 16:24 EDT ?[facility] Emergency ? Test Date: ?2020-09-30 Pat Name: ? CRISTY LUO ?Department: ?? ED ? Room: ? AC17 Gender: ? Female ? [employer] Teacher: ?? [id number] : ?1985 ? Requested By: DIAN Huizar Order Number: [id number] ? Sammie MARTÍNEZ: ?? TRACE SHAUN MARTÍNEZ ? Measurements Intervals ?[place] ? Rate: ? 70 ? P: ?36 MS: ? 139 ?QRS: ?10 QRSD: ? 88 [...] Note Carolina Dunn MD - 10/04/2020 [facility] Emergency Test Date: 2020-09-30 Pat Name: CRISTY LUO Department: ED Room: [facility] Gender: Female [employer] Teacher: [id number] : 1985 Requested By: DIAN Huizar Order Number: [id number] [place] MD: CAROLINA DUNN MD Measurements Intervals [place] Rate: 70 P: 36 MS: 139 QRS: 10 QRSD: 88 T: 3 QT: 418 QTc: 452 Interpretive Statements SINUS RHYTHM WITH MARKED SINUS ARRHYTHMIA Compared to ECG 08/08/2020 19:04:21 SINUS ARRHYTHMIA now present I reviewed the tracing and have either agreed or edited the findings inthis report. Electronically Signed On 10-04-2020 16:24:06 EDT by CAROLINA RICHTER. us Doris Moreno MD CARDIAC ECG ORDERABLES Final Re sult [facility] EKG * (ABNORMAL) POCT GLUCOSE, INTERFACED (09/30/2020 7:25 EDT) Glucose, POC 316(H) 70 - 100 mg/dL 09/30/2020 7:29 EDT [facility] outpatient dietitian ID [id number] 09/30/2020 7:29 EDT [facility] HN LAB POC COMMENT (GLUCOSE) Test Performed by Nursing Services 09/30/2020 7:29 EDT [facility] Blood CAPILLARY BLOOD / Unknown 09/30/2020 7:25 EDT 09/30/2020 7:29 EDT Doris Moreno MD POINT OF CARE TEST ORDERABLES F inal Result Performing Organization Address City/[facility]/ZIP Co de Phone Number [facility] [address] [place] [address] documented in this encounter Visit Diagnoses Diagnosis [...]
--- OUTSIDE RECORDS SUMMARY | 2024-05-31 07:28 | XMS_ITS | Encounter Summary ---
Author Organization [facility] Address [address] [place] [address] Care Team Providers Care Computational Physicist Name Role Phone Unavailable Primary Care Provider [...] 11:05 EDT - 10/01/2020 15:04 EDT Emergency [facility] Emergency Department - Main Transfer [address] [place], [place] [address] Aubrey Javed, MARY [address] [place], [place] [id number] Non-intractable vomiting with nausea, unspecified vomiting type [...] hyperglycemia, with long-term current use of insulin ([facility]) Use 1 pen needle as [...] hot showers, but is too weak to metal can inspector the shower for very long today. Patient [...] gotten relief with outpatient oral Haldol from [facility]. patient is currently not vomiting [...] the Emergency Department: Stable PCP: Tonja Alejandro [facility] Number of Diagnoses or Management Options Amount and/or Complexity of Data Reviewed Clinical lab tests: ordered Tests in the medicine section of CPT??: ordered Alessandro Delgadillo 10/03/2020 8:15 No flowsheet data found. * Diego Casas RN - 10/01/2020 4296 EDT PO fluids provided for PO challenge. [...] 14.04(H) 4.00 - 12.40 K/cmm [facility]2020 [facility] RBC 4.42 3.86 - 5.04 M/cmm 10/01/2020 12:28 [facility] Hemoglobin 14.1 11.6 - 15.2 gm/dL 10/01/2020 12:28 [facility] HCT 38.2 34.9 - 44.4 % 10/01/2020 12:28 [facility] MCV 86 81 - 98 fl 10/01/2020 12:28 [facility] MCH 31.9 26.7 - 33.3 pg 10/01/2020 12:28 [facility] MCHC 36.9(H) 32.1 - 35.9 gm/dL 10/01/2020 12:28 [facility] RDW-CV 12.4 <14.7 % 10/01/2020 12:28 [facility] RDW-SD 39.3 <50.4 fl 10/01/2020 12:28 [facility] PLT 380(H) 141 - 377 K/cmm 10/01/2020 12:28 [facility] MPV 9.6 9.5 - 12.7 fl 10/01/2020 12:28 [facility] % Neutrophils 71.0 % 10/01/2020 12:28 [facility] % Lymphocytes 21.1 % 10/01/2020 12:28 [facility] % Monocytes 6.9 % 10/01/2020 12:28 [facility] % Eosinophils 0.2 % 10/01/2020 12:28 [facility] % Basophils 0.4 % 10/01/2020 12:28 [facility] % Immature Grans 0.4 % 10/02/19 12:28 [facility] Absolute Neutrophils 9.97(H) 2.20 - 8.85 K/cmm 10/01/2020 12:28 [facility] Absolute Lymphocytes 2.96 1.09 - 3.30 K/cmm 10/01/2020 12:28 [facility] Absolute Monocytes 0.97(H) 0.10 - 0.80 K/cmm 10/01/2020 12:28 [facility] Absolute Eosinophils 0.03 0.03 - 0.61 K/cmm 10/01/2020 12:28 [facility] ABS Basophils 0.06 0.01 - 0.11 K/cmm 10/01/2020 12:28 [facility] Absolute Immature Grans 0.05 0.00 - 0.06 K/cmm 10/01/2020 12:28 [facility] Type of Differential: Auto 10/01/2020 12:28 [facility] Blood VENOUS BLOOD / Unknown Venipuncture / Unknown 10/01/2020 11:51 EDT 10/01/2020 11:57 EDT Aubrey Javed PA-C PACKAGES & DNA PROBE ORDERABL ES Final Result Performing Organization Address [facility]/ZIP Co de Phone Number [facility] [address] [place] [address] * (ABNORMAL) BASIC METABOLIC PANEL (BMP) (10/01/2020 11:51 EDT) Sodium 138 136 - 145 mEq/L 10/01/2020 12:23 EDT [facility] Potassium 3.5 3.5 - 5.0 mEq/L 10/01/2020 12:23 [facility] Chloride 98 96 - 110 mEq/L 10/01/2020 12:23 [facility] CO2 Total 27 22 - 32 mEq/L 10/01/2020 12:23 [facility] Glucose 218(H) 70 - 100 mg/dL 10/01/2020 12:23 [facility] Calcium 9.4 8.5 - 10.5 mg/dL 10/01/2020 12:23 [facility] Calculated Calcium 9.3 8.5 - 10.5 mg/dL 10/01/2020 12:23 [facility] BUN 13 10 - 26 mg/dL 10/01/2020 12:23 [facility] Creatinine 0.52 0.52 - 1.04 mg/dL 10/01/2020 12:23 [facility] eGFR 124 >60 mL/min/1.7 3m2 10/01/2020 12:23 [facility] Comment:eGFR calculated gil curtis CKD-EPI equation for non- Americans. Multiply eGFR by 1.16 for patients. Blood VENOUS BLOOD / Unknown Venipuncture / Unknown 10/01/2020 11:51 EDT 10/01/2020 11:57 EDT Aubrey Javed PA-C CHEMISTRY & BLOOD GAS ORDERAB LES Final Result Performing Organization Address City/[facility]/ZIP Co de Phone Number [facility] [address] [place] [address] * (ABNORMAL) POCT GLUCOSE, INTERFACED (10/01/2020 11:14 EDT) Glucose, POC 167(H) 70 - 100 mg/dL 10/01/2020 11:15 EDT [facility] pressure control supervisor ID [id number] 10/01/2020 11:15 EDT [facility] HN LAB POC COMMENT (GLUCOSE) Test Performed by Nursing Services 10/01/2020 11:15 EDT [facility] Blood CAPILLARY BLOOD / Unknown 10/01/2020 11:14 EDT 10/01/2020 11:15 EDT Aubrey Javed PA-C POINT OF CARE TEST ORDERABLES Final Result [facility] [address] [place] [address] documented in this encounter Visit Diagnoses Diagnosis [...]
--- OUTSIDE RECORDS SUMMARY | 2024-05-31 07:28 | XMS_ITS | Encounter Summary ---
Author Organization [facility] Address [address] [place] [address] Care Team Providers Care Director Distribution Name Role Phone Unavailable Primary Care Provider [...]
--- OUTSIDE RECORDS SUMMARY | 2024-05-31 07:28 | XMS_ITS | Encounter Summary ---
Author Organization [facility] Address [address] [place] [address] Care Team Providers Care Manufacturing Operator Name Role Phone Unavailable Primary Care Provider Unavailabl e Reason for Visit * Reason Onset Date Comments Medication Problem 10/06/2020 Encounter Details Date Type Department Care Team (Late st Contact Info) Description 10/06/2020 Telephone [facility] Adult Primary Care - [address] [id number] Tonja Alejandro PA-C [address] [place] [address] [place] [phone] Medication Problem Social History Tobacco Use [...] - 10/06/2020 1453 EDT Incoming fax from [employer] states the rx for lancets does not [...] with left diabetic foot ulcer ([facility])- Primary Type II or unspecified type diabetes mellitus with other specified manifestations, not stated as uncontrolled documented in this encounter Orders Equipment Count Last Ordered Date First Orde red Date GENERIC DME ORDER 1 10/06/2020 documented in this encounter
--- OUTSIDE RECORDS SUMMARY | 2024-05-31 07:28 | XMS_ITS | Encounter Summary ---
Author Organization [facility] Address [address] [place] [address] Care Team Providers Care Touring Production Manager Name Role Phone Unavailable Primary Care Provider Unavailabl e Reason for Visit * Reason Onset Date Comments Results 09/12/2020 Encounter Details Date Type Department Care Team (Late st Contact Info) Description 09/12/2020 Telephone [facility] [address] [place], [place] [id number] [place] [id number] [place] [phone] Results Social History [...] Joseph MD Obstetrics and Gynecology, PGY-2 Pager #[phone] 09/12/20 9:42 documented in this encounter Plan of Treatment Not on file documented as of this encounter Visit Diagnoses Not on filedocumented in this encounter
--- OUTSIDE RECORDS SUMMARY | 2024-05-31 07:28 | XMS_ITS | Encounter Summary ---
Author Organization [facility] Address [address] [place] [address] Care Team Providers Care High Voltage Electrician Name Role Phone Unavailable Primary Care [...]
--- OUTSIDE RECORDS SUMMARY | 2024-05-31 07:28 | XMS_ITS | Encounter Summary ---
Author Organization [facility] Address [address] [place] [address] Care Team Providers Care Armature Balancer Name Role Phone Unavailable Primary Care [...]
--- OUTSIDE RECORDS SUMMARY | 2024-05-31 07:28 | XMS_ITS | Encounter Summary ---
Author Organization [facility] Address [address] [place] [address] Care Team Providers Care Job Press Feeder Name Role Phone Unavailable Primary Care Provider Unavailabl e Reason for Visit * Reason Onset Date Comments Medications Refill 10/01/2020 Encounter Details Date Type Department Care Team (Late st Contact Info) Description 10/01/2020 Refill [facility] Adult Primary Care - [address] [address] Tonja Alejandro PA-C [address] [place] [address] [place] [phone] Medications Refill Social History Tobacco Use [...] Telephone Encounter - Elver Kamini - 10/02/2020 6982 EDT Medication(s) Requested: metoclopramide HCI Preferred Pharmacy: [id number] Is patient out of medication? Unknown Last Refill Date: 08/11/2020 Last Visit Date with Ordering Provider: 09/15/2020 Next Non-Acute Visit Date Scheduled with Care Team: No. Kamini Raya 10/02/2020 15:47 documented in this encounter Plan of Treatment Not on file documented as of this encounter Visit Diagnoses Not on filedocumented in this encounter
--- OUTSIDE RECORDS SUMMARY | 2024-05-31 07:28 | XMS_ITS | Encounter Summary ---
Author Organization [facility] Address [address] [place] [address] Care Team Providers Care Fork Lift Technician Name Role Phone Unavailable Primary Care Provider Unavailabl e Reason for Visit * Reason Onset Date Comments Coordination Of Care 10/01/2020 Patient arturo ding to ED Encounter Details Date Type Department Care Team (Late st Contact Info) Description 10/01/2020 Telephone [facility] Adult Primary Care - [address] [phone] Tonja Alejandro PA-C [address] [place] [address] [place] [phone] Coordination Of Care (Patient heading to [...]
--- OUTSIDE RECORDS SUMMARY | 2024-05-31 07:28 | XMS_ITS | Encounter Summary ---
Author Organization [facility] Address [address] [place] [address] Care Team Providers Care Wire Puller Name Role Phone Unavailable Primary Care Provider Unavailabl e Reason for Visit * Reason Onset Date Comments Prior Auth, Medication 10/23/2020 Encounter Details Date Type Department Care Team (Late st Contact Info) Description 10/23/2020 Telephone [facility] Adult Primary [facility] [address] [address] Tonja Alejandro PA-C [address] [place] [address] [place] [phone] Prior Auth, Medication Social History Tobacco [...] No 10/02/2020 23:50 River Cavnaaugh RN * Do you have difficulty dressing [...] Auth needed for Lidocaine 5% Patches Mejia: [id number] PA has been completed via [employer]. Awaiting decision Medication does not require a PA. Pharmacy notified documented in this encounter Plan of Treatment Not on file documented as of this encounter Visit Diagnoses Not on filedocumented in this encounter
--- OUTSIDE RECORDS SUMMARY | 2024-05-31 07:28 | XMS_ITS | Encounter Summary ---
Author Organization [facility] Address [address] [place] [address] Care Team Providers Care Funeral Limousine Driver Name Role Phone Unavailable Primary Care [...]
--- OUTSIDE RECORDS SUMMARY | 2024-05-31 07:28 | XMS_ITS | Encounter Summary ---
Author Organization [facility] Address [address] [place] [address] Care Team Providers Care Showroom Salesperson Name Role Phone Unavailable Primary Care Provider Unavailabl e Reason for Visit * Reason Onset Date Comments Labs Only 09/12/2020 Encounter Details Date Type Department Care Team (Late st Contact Info) Description 09/12/2020 Telephone [facility] Adult Primary [facility] - [place] [address] [place], [place] [id number] James Partida, RN Labs Only Social History [...] Telephone Encounter - James Partida - 09/12/2020 2723 EDT Incoming call from Stella. Relayed Tonja [...]
--- OUTSIDE RECORDS SUMMARY | 2024-05-31 07:28 | XMS_ITS | Encounter Summary ---
Author Organization [facility] Address [address] [place] [address] Care Team Providers Care Custodian Supervisor Name Role Phone Unavailable Primary Care Provider Unavailabl e Reason for Visit * Reason Onset Date Comments Back Pain 10/21/2020 Encounter Details Date Type Department Care Team (Late st Contact Info) Description 10/21/2020 Telephone [facility] Adult Primary Care - [address] [phone] Caroline Skinner MD [address] [place] [address] Back Pain Social History Tobacco [...] Skinner MD - 10/21/2020 1910 EDT call worker message: arnold calling on her behalf. Severe [...]
--- OUTSIDE RECORDS SUMMARY | 2024-05-31 07:28 | XMS_ITS | Encounter Summary ---
Author Organization [facility] Address [address] [place] [address] Care Team Providers Care Vault Cashier Name Role Phone Unavailable Primary Care Provider Unavailabl e Reason for Referral * PT/OT/ST (Routine) - Closed Specialty Diagnoses / Procedures Referred By Contac t Referred To Contact Diagnoses Acute right-sided low back pain with sciatica, sciatica laterality unspecified Moshe Ferrer MD Phone: tel: fax: Gay Hyman, PT [id number] [place] [address] Phone: tel: fax: Referral ID Status Reason Start Date Expiration Date V isits Requested Visits Authorized [id number] Closed Specialty Services Required 10/22/2020 1 1 Question Answer Reason for Request: acute on chronic low back pain, history of emotional trauma Reason for Visit * Reason Comments Back Pain right lower back kuldeep n radiating down right lower limb. Encounter Details Date Type Department Care Team (Late st Contact Info) Description 10/22/2020 10:00 EDT Office Visit [facility] Adult Primary [facility] - [place] [address] [place], [place] [phone] Linnea Patel MD [address] [place] [id number] Acute right-sided low back pain with sciatica, [...] Linnea Patel MD - 10/22/2020 1000 EDT [place] [facility] Patient Name: [...] of care documented in the resident's note. oMshe Ferrer MD FACP autism motor specialist documented in this encounter Plan of Treatment [...]
--- OUTSIDE RECORDS SUMMARY | 2024-05-31 07:28 | XMS_ITS | Encounter Summary ---
Author Organization [facility] Address [address] [place] [address] Care Team Providers Care Carbon Dioxide Operator Name Role Phone Unavailable Primary Care Provider Unavailabl e Reason for Visit * Reason Onset Date Comments Medication Questions 10/09/2020 Encounter Details Date Type Department Care Team (Late st Contact Info) Description 10/09/2020 Telephone [facility] Adult Primary Care - [address] [address] Tonja Alejandro PA-C [address] [place] [address] [place] [phone] Medication Questions Social History Tobacco Use [...]
--- OUTSIDE RECORDS SUMMARY | 2024-05-31 07:28 | XMS_ITS | Encounter Summary ---
Author Organization [facility] Address [address] [place] [address] Care Team Providers Care Insulation Applicator Name Role Phone Unavailable Primary Care Provider Unavailabl e Encounter Details Date Type Department Care Team (Late st Contact Info) Description 09/11/2020 Community Health Team [facility] [address] [facility], [address] [place] [address] Briana Larson [address] [facility] [address] [place] [address] Social History Tobacco Use Types Packs/Day Years [...] patient as discussed. .. Adult Primary Care [place], [address] [place] [address] Total Time: 15 min phone, 20 min care coordination, 10 min charting Referral: Counseling Follow up: Consult only Status: Graduated documented in this encounter Plan of Treatment Not on file documented as of this encounter Visit Diagnoses Not on filedocumented in this encounter
--- OUTSIDE RECORDS SUMMARY | 2024-05-31 07:28 | XMS_ITS | Encounter Summary ---
Author Organization [facility] Address [address] [place] [address] Care Team Providers Care Brazing Machine Feeder Name Role Phone Unavailable Primary Care Provider Unavailabl e Reason for Visit * Reason Comments Follow-up Encounter Details Date Type Department Care Team (Latest Contact Info) Description 09/15/2020 9:45 EDT Office Visit [facility] Adult Primary Care - [address] [phone] Tonja Alejandro PA-C [address] [place] [address] [address] [place] [phone] Type 2 diabetes mellitus with hyperosmolarity without coma, with long-term current use of insulin ([facility]) (Primary Dx); Gastroparesis; Chronic bilateral thoracic [...] Patient reports that she followed up with [facility] and underwent a laparoscopic bilateral salpingectomy on [...] worse. She has done physical therapy in [place] specifically pool therapy in the past. She also reports that she has a lot of excessive skin from her weight loss. She thinks that these pulls on the back muscles. She is interested in the future of possibly getting skin removal. Patient reports that on Tuesday she is traveling out to [place] prior self. She has severe anxiety whenit [...] Anxiety regarding this upcoming airplane flight to [place] -patient already has a prescription for lorazepam, [...] place for injection therapy. Tonja Alejandro PA-C [facility] 09/15/2020 9:59 I spent a total of [...] coma, with long-term current use of insulin ([facility])- Primary Gastroparesis Chronic bilateral thoracic back pain Lumbar pain Lumbago documented in this encounter
--- OUTSIDE RECORDS SUMMARY | 2024-05-31 07:28 | XMS_ITS | Encounter Summary ---
Author Organization [facility] Address [address] [place] [address] Care Team Providers Care Director Of Clinical Services Name Role Phone Unavailable Primary Care Provider Unavailabl e Encounter Details Date Type Department Care Team (Late st Contact Info) Description 10/10/2020 Orders Only [facility] Adult Primary Care - [address] [address] Tonja Alejandro PA-C [address] [place] [address] [place] [phone] Social History Tobacco Use Types Packs/Day [...]
--- OUTSIDE RECORDS SUMMARY | 2024-05-31 07:28 | XMS_ITS | Encounter Summary ---
Author Organization [facility] Address [address] [place] [address] Care Team Providers Care Chief Recordist Name Role Phone Unavailable Primary Care Provider Unavailabl e Reason for Visit * Reason Onset Date Comments Medications Refill 10/07/2020 Encounter Details Date Type Department Care Team (Late st Contact Info) Description 10/07/2020 Telephone [facility] [address] [place] [address] Sara Zafar NP [address] [facility] [address] [place] [phone] Medications Refill Social History Tobacco [...]
--- OUTSIDE RECORDS SUMMARY | 2024-05-31 07:28 | XMS_ITS | Encounter Summary ---
Author Organization [facility] Address [address] [place] [address] Care Team Providers Care Casting Trucker Name Role Phone Unavailable Primary Care [...]
--- OUTSIDE RECORDS SUMMARY | 2024-05-31 07:28 | XMS_ITS | Encounter Summary ---
Author Organization [facility] Address [address] [place] [address] Care Team Providers Care Chicken Picker Name Role Phone Unavailable Primary Care [...]
--- OUTSIDE RECORDS SUMMARY | 2024-05-31 07:28 | XMS_ITS | Encounter Summary ---
Author Organization [facility] Address [address] [place] [address] Care Team Providers Care Health Science Specialist Name Role Phone Unavailable Primary Care Provider Unavailabl e Reason for Visit * Reason Onset Date Comments Back Pain 10/29/2020 Encounter Details Date Type Department Care Team (Late st Contact Info) Description 10/29/2020 Telephone [facility] Adult Primary Care - [address] [address] Tonja Alejandro PA-C [facility] [address] [place] [phone] Back Pain Social History Tobacco [...]
--- OUTSIDE RECORDS SUMMARY | 2024-05-31 07:29 | XMS_ITS | Encounter Summary ---
Author Organization Health system Address [address] [place] [address] Care Team Providers Care Registration Representative Name Role Phone Unavailable Primary Care Provider Unavailabl e Reason for Referral * Radiology Services (Routine) - Closed Specialty Diagnoses / Procedures Referred By Contac t Referred To Contact Nuclear Medicine Diagnoses Generalized abdominal pain Emesis, persistent Type 2 diabetes mellitus with hyperosmolarity without coma, with long-term current use of insulin ([facility]) Procedures NM GASTRIC EMPTYING SOLID Broderick Irene MD Phone: tel: fax: Referral ID Status Reason Start Date Expiration Date Visits Re quested Visits Authorized [id number] Closed 08/10/2020 1 1 Reason for Visit [...] Expiration Date Visits Re quested Visits Authorized [id number] 1 1 Encounter Details Date Type Department Care Team (Late st Contact Info) Description 08/08/2020 18:57 EST - 08/10/2020 13:56 EST Hospital Encounter [facility] General Medicine Unit [address] [place] [address] Elise Charles MD 111 [facility], Level 1 [place] [address] Keshav Dumont MD [address] [address] Bouchra Costello MD [address] [address] Generalized abdominal pain (Primary Dx); Emesis, persistent; Type 2 diabetes mellitus with hyperosmolarity without coma, with long-term current use of insulin ([facility]); Dehydration; Gastroparesis Discharge Disposition: Home or [...] Date of Assessment Author No 08/09/2020 0:58 Niesah Yen RN * Do you have difficulty dressing or bathing? (5 years old or older) Answer Date of Assessment Author No 08/09/2020 0:58 Niesha Yen RN * Because of a physical, mental, or emotional condition, do you have difficulty doing errands alone such as visiting a doctor's office or shopping? (15 years old or older) Answer Date of Assessment Author No 08/09/2020 0:58 Neisha Yen RN documented as of this encounter [...] LR. There was initially some c/f possible AIRPORT MANAGER hematemesis in the ED but pt clarified that while she didhave some e/o pink vomit on 4 days and then again 2 days AIRPORT MANAGER, however she had not had any [...] Component Value Units Date/Time Bacterial Culture, Blood [[id number]] Collected: 08/08/202058 Lab Status: In process Specimen: Blood, Venous Updated: 08/08/202116 Bacterial Culture, Blood [[id number]] Collected: 08/08/20 2100 Lab Status: In process Specimen: Blood, Venous Updated: 08/08/202116 Upcoming Appointments Aug 12, 2020 10:30 PAT Call with [facility] PAT CALL ROOM 4 [facility] Pre-Surgical Testing (--) [address] [facility] [address] Aug 17, 2020 9:00 Mobile Lab Testing with [facility] Through Testing [facility] JR ALICEA MOBILE ([facility] All Departments) [address] [place] [address] Aluminum Sheet Cutter: Review appointment date and time above. Arrival Instructions: Before I let you go, I need to read you a set of instructions. Please provide me with your full attention. The testing site is located at [address] [place] [address]. When you pull into the entrance stay [...] Follow Up Visit with Sara Zafar APRN [facility] Endocrinology - [facility] (--) [address] [facility] [address] Sep 04, 2020 16:15 (Arrive by 16:00) Post Op Visit with Clarke Joseph MD [facility] Women's Services [facility] (--) [address] [facility] [address] Sep 10, 2020 15:00 Office Visit with Elza Navarro DPM [facility] Foot & Ankle Program - [facility] (--) [address] [facility] [address] Follow-up appointments and procedures Amb Consult/Follow Up [...] Irene DO Internal Medicine PGY-1 Cortext preferred, #[id number] (via PAS) 08/10/20 11:11 Attestation: Pt seen and examined. I have reviewed Dr. Irene's note and agree with his summary asoutlined above. DOS 08/10/2020. Bouchra Costello MD, MPH documented in this encounter Discharge Instructions * Discharge Instr - AVS First Page* Broderick Irene MD - 08/10/2020 8:24 EST Please follow-up with your PCP as soon as able Please follow-up with your geotechnical department manager We have ordered you a Gastric Emptying [...] any other concerns. Thank you for choosing [facility] for your care! documented in this [...] Notes * Peggy Lamas FNP - 08/09/2020 8040 EST Initial Case Management/Social Work Assessment and Discharge Plan/Readmission Risk Assessment REASON FOR ADMISSION: Generalized abdominal pain Patient understands reason for admission: Yes PATIENT INFO VERIFIED: PCP Type of housing (single family, condo, apartment, mcc, single room occupancy, ESD funded hotel room, group penitentiary) - duplex Who does the patient live with? Spouse and roommate Does the patient have access to their own bedroom/bathroom/kitchen - or is it shared with others? shared Name of housing complex (ex [employer] [facility], [facility], etc)- N/A Housing Authority/Managing Organization - N/A Community Care Providers (disease case manager, [facility] nurse, etc) name and contact information- none [...] For Finances: No TRANSPORTATION: Transportation: Family CULTURAL, DRUZE and/or LANGUAGE factors affecting health care/discharge planning: [...] device: None Community Services: Home health, MOW, [facility]-none of one time a week Will you [...] Services: None DME Provider: None [id number] - [place], [place] - [address] [facility] [address] [facility] [address] [facility] - [place], [place] - [address] [address] Home Health: not prior to admission Other: none POST HOSPITAL TRANSITION PLAN: Home with support from spouse Chief Maintenance Supervisor spoke to the patient's spouse. No home health needs identified at this time. Her spouse can transport her home when she is medically ready for discharge. PEGGY LAMAS RN CM MSN 08/09/2020 14:44 manager style * Bouchra Costello MD - 08/09/2020 0956 [...] this morning. Tolerated a couple bites of hungarian muffin as well as taking liquid PO [...] / drinking now - Push PO fluids --Wayland 10 QID prn --Zofran 4 mg Q 8 prn - Consider outpatient EGD - Would likely benefit from gastric emptying study however unfortunately they are not offered on the weekends. If she continues to improve at her current rate will likely defer to outpatient. ?? #T2DM: A1c 9.7 07/28/20 --Continue dose reduced glargine 30 (from yacht captain 40) --Hold mealtime insulin while not taking PO --SSI --Gabapentin 100 BID and 300 at bedtime ?? #Anxiety: --yacht captain lorazepam 0.5 mg TID prn Code [...] told years ago ??? Depression ??? Diabetes ([facility]) A1c 10.3 on 11/28/2019 [...] at bedtime. ) ??? lancets One Touch NaturVention or other brand compatible with lancing device [...] --D5 LR for 1L @ 100 cc/hr --Wayland 10 QID prn --Zofran 4 mg Q 8 prn #T2DM: A1c 9.7 07/28/20 --Dose reduce glargine to 30 from yacht captain 40 --Hold mealtime insulin while not taking PO --SSI --Gabapentin 100 BID and 300 at bedtime #Anxiety: --yacht captain lorazepam 0.5 mg TID prn VTE Prophylaxis Pharmacologic Prophylaxis: Enoxaparin (Lovenox) 40 mg SQ daily Code: Full Discharge Plan Uncertain at this time Consults None Admission Status Observation. Anticipated duration of hospitalization is less than two midnights. Mervin Kamara MD 08/09/2020 0:29 Cosigned by Kesahv Dumont MD at 08/09/2020 2:47 EST Associated [...] UA consistent with starvation ketosis. Will decrease AIRPORT MANAGER insulin. Initially concern for AMS but [...] She has had two visits to the [facility] ED prior to today for similar [...] and repeat procedure Alternatives discussed: No treatment [place] protocol: Procedure explained and questions answered to [...] for UTI. The patient presents to the [facility] ED endorsing abdominal pain accompanied by nausea w/emesis since early Tuesday morning. Of note, the patient has been evaluated at the [facility] ED twice this week prior to [...] Goal: Care Plan Documentation Flowsheets (Taken 08/10/2020 2714) Area of Focus: Pain/ Comfort Goal This [...] for solid food. References: Manny et al. [place] Journal of Gastroenterology 2000. Kev et al. Gastroenterology 2006 Roshni et al. [place] Journal of Gastroenterology 2006. Narrative 09/09/2020 [...] for solid food. References: Toiliana et al. [place] Journal of Gastroenterology 2000. Kev et al. Gastroenterology 2006 Roshni et al. [place] Journal of Gastroenterology 2006. us Broderick Irene MD IMG NM ORDERABLES Final Resul t * ECG REPORT - SCANNED (08/25/2020 13:23 EDT) 08/25/2020 13:2 3 EDT us Scan 2 Bulk Sausage Casing Tier Off PROCEDURE/MINOR SURGICAL OR DERABLES Final Result * (ABNORMAL) POCT GLUCOSE, INTERFACED (08/10/2020 11:56 EST) Glucose, POC 157(H) 70 - 100 mg/dL 08/10/2020 12:01 EST [facility] golf ball trimmer ID [id number] 08/10/2020 12:01 EST [facility] HN LAB POC COMMENT (GLUCOSE) Test Performed by Nursing Services 08/10/2020 12:01 EST [facility] Blood CAPILLARY BLOOD / Unknown 08/10/2020 11:56 EST 08/10/2020 12:01 EST us Mervin Kamara MD POINT OF CARE TEST ORDERABLES F inal Result [facility] [address] [place] [address] * (ABNORMAL) POCT GLUCOSE, INTERFACED (08/10/2020 7:13 EST) Glucose, POC 195(H) 70 - 100 mg/dL 08/10/2020 7:15 EST [facility] golf ball trimmer ID [id number] 08/10/2020 7:15 EST [facility] HN LAB POC COMMENT (GLUCOSE) Test Performed by Nursing Services 08/10/2020 7:15 EST [facility] Blood CAPILLARY BLOOD / Unknown 08/10/2020 7:13 EST 08/10/2020 7:15 EST Mervin Kamara MD POINT OF CARE TEST ORDERABLES F inal Result [facility] [address] [place] [address] * CREATININE (08/10/2020 6:39 EST) Creatinine 0.60 0.52 - 1.04 mg/dL 08/10/2020 7:52 EST [facility] eGFR 118 >60 mL/min/1.7 3m2 08/10/2020 7:52 EST [facility] Comment:eGFR calculated gil curtis CKD-EPI equation for non- Americans. Multiply eGFR by 1.16 for patients. Blood VENOUS BLOOD / Unknown Venipuncture / Unknown 08/10/2020 6:39 EST 08/10/2020 7:22 EST Mervin Kamara MD CHEMISTRY & BLOOD GAS ORDERABLE S Final Result Performing Organization Address [facility] Co de Phone Number [facility] [address] [place] [address] * ELECTROLYTES (08/10/2020 6:39 EST) Sodium 138 136 - 145 mEq/L 08/10/2020 7:52 EST [facility] Potassium 3.7 3.5 - 5.0 mEq/L 08/10/2020 7:52 EST [facility] Chloride 96 96 - 110 mEq/L 08/10/2020 7:52 [facility] CO2 Total 31 22 - 32 mEq/L 08/10/2020 7:52 EST [facility] Blood VENOUS BLOOD / Unknown Venipuncture / Unknown 08/10/2020 6:39 EST 08/10/2020 7:22 EST Mervin Kamara MD CHEMISTRY & BLOOD GAS ORDERABLE S Final Result [facility] [address] [place] [address] * (ABNORMAL) COMPLETE BLOOD COUNT (08/10/2020 6:39 EST) WBC 10.21 4.00 - 12.40 K/cmm 08/10/2020 7:13 [facility] RBC 4.70 3.86 - 5.04 M/cmm 08/10/2020 7:13 [facility] Hemoglobin 14.6 11.6 - 15.2 gm/dL 08/10/2020 7:13 [facility] HCT 40.3 34.9 - 44.4 % 08/10/2020 7:13 [facility] MCV 86 81 - 98 fl 08/10/2020 7:13 [facility] MCH 31.1 26.7 - 33.3 pg 08/10/2020 7:13 [facility] MCHC 36.2(H) 32.1 - 35.9 gm/dL 08/10/2020 7:13 [facility] RDW-CV 12.0 <14.7 % 08/10/2020 7:13 [facility] RDW-SD 37.5 <50.4 fl 08/10/2020 7:13 [facility] PLT 343 141 - 377 K/cmm 08/10/2020 7:13 [facility] MPV 9.8 9.5 - 12.7 fl 08/10/2020 7:13 [facility] Blood VENOUS BLOOD / Unknown Venipuncture / Unknown 08/10/2020 6:39 EST 08/10/2020 7:00 EST us Mervin Kamara MD HEMATOLOGY & PF4 ORDERABLES Fin al Result [facility] [address] [place] [address] * (ABNORMAL) POCT GLUCOSE, INTERFACED (08/09/2020 20:46 EST) Glucose, POC 218(H) 70 - 100 mg/dL 08/09/2020 20:54 [facility] golf ball trimmer ID [id number] 08/09/2020 20:54 [facility] HN LAB POC COMMENT (GLUCOSE) Test Performed by Nursing Services 08/09/2020 20:54 [facility] Blood CAPILLARY BLOOD / Unknown 08/09/2020 20:46 EST 08/09/2020 20:54 EST Mervin Kamara MD POINT OF CARE TEST ORDERABLES F inal Result Performing Organization Address City/[facility]/ZIP Co de Phone Number [facility] [address] [place] [address] * (ABNORMAL) POCT GLUCOSE, INTERFACED (08/09/2020 17:06 EST) Glucose, POC 209(H) 70 - 100 mg/dL 08/09/2020 17:11 [facility] golf ball trimmer ID [id number] 08/09/2020 17:11 [facility] HN LAB POC COMMENT (GLUCOSE) Test Performed by Nursing Services 08/09/2020 17:11 [facility] Blood CAPILLARY BLOOD / Unknown 08/09/2020 17:06 EST 08/09/2020 17:10 EST Mervin Kamara MD POINT OF CARE TEST ORDERABLES F inal Result Performing Organization Address City/[facility]/ZIP Co de Phone Number [facility] [address] [place] [address] * (ABNORMAL) POCT GLUCOSE, INTERFACED (08/09/2020 13:22 EST) Glucose, POC 244(H) 70 - 100 mg/dL 08/09/2020 13:24 [facility] golf ball trimmer ID [id number] 08/09/2020 13:24 [facility] HN LAB POC COMMENT (GLUCOSE) Test Performed by Nursing Services 08/09/2020 13:24 [facility] Blood CAPILLARY BLOOD / Unknown 08/09/2020 13:22 EST 08/09/2020 13:24 EST us Mervin Kamara MD POINT OF CARE TEST ORDERABLES F inal Result [facility] [address] [place] [address] * (ABNORMAL) POCT GLUCOSE, INTERFACED (08/09/2020 9:23 EST) Glucose, POC 179(H) 70 - 100 mg/dL 08/09/2020 9:24 EST [facility] golf ball trimmer ID [id number] 08/09/2020 9:24 EST [facility] HN LAB POC COMMENT (GLUCOSE) Test Performed by Nursing Services 08/09/2020 9:24 EST [facility] Blood CAPILLARY BLOOD / Unknown 08/09/2020 9:23 EST 08/09/2020 9:24 EST us Keshav Dumont MD POINT OF CARE TEST ORDERABL ES Final Result Performing Organization Address [facility] Co de Phone Number [facility] [address] [place] [address] * (ABNORMAL) CREATININE (08/09/2020 7:04 EST) Creatinine 0.47(L) 0.52 - 1.04 mg/dL 08/09/2020 8:32 EST [facility] eGFR 128 >60 mL/min/1.7 3m2 08/09/2020 8:32 EST [facility] Comment:eGFR calculated gil curtis CKD-EPI equation for non- Americans. Multiply eGFR by 1.16 for patients. Blood VENOUS BLOOD / Unknown Venipuncture / Unknown 08/09/2020 7:04 EST 08/09/2020 7:58 EST us Mervin Kamara MD CHEMISTRY & BLOOD GAS ORDERABLE S Final Result Performing Organization Address City/[facility]/ZIP Co de Phone Number [facility] [address] [place] [address] * (ABNORMAL) ELECTROLYTES (08/09/2020 7:04 EST) Sodium 134(L) 136 - 145 mEq/L 08/09/2020 8:32 [facility] Potassium 3.4(L) 3.5 - 5.0 mEq/L 08/09/2020 8:32 [facility] Chloride 95(L) 96 - 110 mEq/L 08/09/2020 8:32 [facility] CO2 Total 30 22 - 32 mEq/L 08/09/2020 8:32 [facility] Blood VENOUS BLOOD / Unknown Venipuncture / Unknown 08/09/2020 7:04 EST 08/09/2020 7:58 EST us Mervin Kamara MD CHEMISTRY & BLOOD GAS ORDERABLE S Final Result Performing Organization Address City/State/[facility] Co de Phone Number [facility] [address] [place] [address] * (ABNORMAL) COMPLETE BLOOD COUNT (08/09/2020 7:04 EST) WBC 11.82 4.00 - 12.40 K/cmm 08/09/2020 7:42 [facility] RBC 4.31 3.86 - 5.04 M/cmm 08/09/2020 7:42 [facility] Hemoglobin 13.3 11.6 - 15.2 gm/dL 08/09/2020 7:42 [facility] HCT 36.3 34.9 - 44.4 % 08/09/2020 7:42 [facility] MCV 84 81 - 98 fl 08/09/2020 7:42 [facility] MCH 30.9 26.7 - 33.3 pg 08/09/2020 7:42 [facility] MCHC 36.6(H) 32.1 - 35.9 gm/dL 08/09/2020 7:42 [facility] RDW-CV 11.9 <14.7 % 08/09/2020 7:42 [facility] RDW-SD 36.4 <50.4 fl 08/09/2020 7:42 [facility] PLT 340 141 - 377 K/cmm 08/09/2020 7:42 [facility] MPV 9.7 9.5 - 12.7 fl 08/09/2020 7:42 [facility] Blood VENOUS BLOOD / Unknown Venipuncture / Unknown 08/09/2020 7:04 EST 08/09/2020 7:29 EST us Mervin Kamara MD HEMATOLOGY & PF4 ORDERABLES Fin al Result Performing Organization Address City/[facility]/ZIP Co de Phone Number [facility] [address] [place] [address] * (ABNORMAL) POCT GLUCOSE, INTERFACED (08/09/2020 4:21 EST) Glucose, POC 219(H) 70 - 100 mg/dL 08/09/2020 7:22 [facility] golf ball trimmer ID [id number] 08/09/2020 7:22 [facility] HN LAB POC COMMENT (GLUCOSE) Test Performed by Nursing Services 08/09/2020 7:22 [facility] Blood CAPILLARY BLOOD / Unknown 08/09/2020 4:21 EST 08/09/2020 7:22 EST us Keshav Dumont MD POINT OF CARE TEST ORDERABL ES Final Result Performing Organization Address City/[facility]/ZIP Co de Phone Number [facility] [address] [place] [address] * (ABNORMAL) POCT GLUCOSE, INTERFACED (08/09/2020 1:47 EST) Glucose, POC 173(H) 70 - 100 mg/dL 08/09/2020 7:16 [facility] golf ball trimmer ID [id number] 08/09/2020 7:16 [facility] HN LAB POC COMMENT (GLUCOSE) Test Performed by Nursing Services 08/09/2020 7:16 [facility] Blood CAPILLARY BLOOD / Unknown 08/09/2020 1:47 EST 08/09/2020 7:16 EST Mervin Kamara MD POINT OF CARE TEST ORDERABLES F inal Result Performing Organization Address City/[facility]/ZIP Co de Phone Number [facility] [address] [place] [address] * HN LAB CELL COUNT, CSF (08/08/2020 23:12 EST) RBC, CSF <1 /cmm 08/08/2020 23:43 EST [facility] Nucleated Cells, CSF <1 0 - 5 /cmm 08/08/2020 23:43 [facility] Total Volume CSF 4.8 ml 08/08/2020 23:43 [facility] Tube Cntd. 4 08/08/2020 23:43 [facility] Comment, CSF Clear and colorless 08/08/2020 23:43 [facility] Tube Vol. 1.2 ml 08/08/2020 23:43 [facility] Fluid CEREBROSPINAL FLUID SPECIMEN / Unknown 08/08/2020 23:12 EST 08/08/2020 23:22 EST Elise Charles MD HEMATOLOGY & PF4 ORDERABLE S Final Result Performing Organization Address City/[facility]/ZIP Co de Phone Number [facility] [address] [place] [address] * BACTERIAL CULTURE/SMEAR (08/08/2020 23:12 EST) Organism ID No Growth 08/10/2020 8:49 EST [facility] Smear No Neutrophils Seen 08/10/2020 8:49 EST [facility] Smear No bacteria seen 08/10/2020 8:49 EST [facility] Fluid CEREBROSPINAL FLUID SPECIMEN / Unknown 08/08/2020 23:12 EST 08/08/2020 23:22 EST us Elise Charles MD MICROBIOLOGY - GENERAL ORD ERABLES Final Result [facility] [address] [place] [address] * (ABNORMAL) TOTAL PROTEIN, CSF (08/08/2020 23:12 EST) Total Protein, CSF 55(H) 12 - 45 mg/dL 08/09/2020 0:00 EST [facility] Fluid CEREBROSPINAL FLUID SPECIMEN / Unknown 08/08/2020 23:12 EST 08/08/2020 23:22 EST us Elise Charles MD GEN LAB UNIT COLLECT ORDER HAILEY Final Result Performing Organization Address City/[facility]/ZIP Co de Phone Number [facility] [address] [place] [address] * GLUCOSE CSF (08/08/2020 23:12 EST) Glucose, CSF 126 See Note mg/dL 08/09/2020 0:00 EST [facility] Comment: NOTE: Reference range for Glucose in CSF: 60% - 80% of the Serum/Plasma Glucose Fluid CEREBROSPINAL FLUID SPECIMEN / Unknown 08/08/2020 23:12 EST 08/08/2020 23:22 EST Elise Charles MD GEN LAB UNIT COLLECT ORDER HAILEY Final Result Performing Organization Address City/[facility]/ZIP Co de Phone Number [facility] [address] [place] [address] * CELL COUNT TUBE 1, CSF - RBC ONLY, INDICATED FOR A BLOODY TAP (08/08/2020 23:12 EST) RBC, CSF Tube#1 <1 /cmm 08/08/2020 23:43 EST [facility] Specimen Volume 1.2 ml 08/08/2020 23:43 EST [facility] Fluid CEREBROSPINAL FLUID SPECIMEN / Unknown 08/08/2020 23:12 EST 08/08/2020 23:22 EST us Elise Charles MD GEN LAB UNIT COLLECT ORDER HAILEY Final Result Performing Organization Address [facility] Co de Phone Number [facility] [address] [place] [address] * TEST, URINE (08/08/2020 22:32 EST) Test, Urine Negative Negative 08/09/2020 1:36 [facility] Comment:False negative resul ts may occur in women who are beyond 5-8 weeks gestation. Diagnosis of should be based on a correlation of test results with typical clinical signs and symptoms. Urine URINE SPECIMEN COLLECTION, CLEAN CATCH / Unknown Urine Collect / Unknown 08/08/2020 22:32 EST 08/08/2020 22:34 EST us Keshav Dumont MD URINALYSIS ORDERABLES Final Result Performing Organization Address [facility] de Phone Number [facility] [address] [place] [address] * (ABNORMAL) URINE CHEMICAL (DIP) & SEDIMENT (MICRO) WITH REFLEX TO CULTURE (08/08/2020 22:32 EST) Color UA Yellow Colorless, Yellow 08/08/2020 23:01 [facility] Clarity UA Hazy(A) Clear 08/08/2020 23:01 [facility] Glucose UA Trace(A) Negative 08/08/2020 23:01 [facility] Bilirubin UA Negative Negative 08/08/2020 23:01 [facility] Ketones UA 3+(AA) Negative 08/08/2020 23:01 [facility] Specific [place], Urine 1.024 1.001 - 1.035 08/08/2020 23:01 [facility] Blood UA Negative Negative 08/08/2020 23:01 [facility] Urobilinogen UA 4(A) Normal mg/dL 08/08/2020 23:01 [facility] Nitrite UA Negative Negative 08/08/2020 23:01 [facility] Leukocyte Esterase UA Negative Negative 08/08/2020 23:01 [facility] Protein UA 1+(A) Negative 08/08/2020 23:01 [facility] pH, UA 7.5 4.6 - 8.0 08/08/2020 23:01 [facility] Urine RBC Count, Auto 0 - 2 0 - 2 Cells/HPF 08/08/2020 23:01 [facility] Urine WBC Count, Auto 0 - 3 0 - 3 Cells/HPF 08/08/2020 23:01 [facility] Urine Squamous Count, Auto Moderate(A) None Seen Cells/HPF 08/08/2020 23:01 [facility] Urine Hyaline Cast Count, Auto <=10 <=10 Casts/LPF 08/08/2020 23:01 [facility] Urine Bacteria Count, Auto None Seen None Seen Bacteria/HP F 08/08/2020 23:01 [facility] Urine Crystals Amorphous Phosphates Present(A) None Seen 08/08/2020 23:01 [facility] Urine URINE SPECIMEN COLLECTION, CLEAN CATCH / Unknown Urine Collect / Unknown 08/08/2020 22:32 EST 08/08/2020 22:34 EST Narrative [facility] - 08/08/2020 23:01 EST NOTE: Reflex to Urine Culture test is not indicated based on Urine Sediment Analysis results. Urine Sediment Analysis results are unreliable on urines that are unrefrigerated for >2 hrs or refrigerated >8 hrs. us Asuncion Telles MD URINALYSIS ORDERABLES Final Res ult [facility] [address] [place] [address] * CT HEAD WO CONTRAST (08/08/2020 21:15 [...] CT ORDERABLES Final Result * COVID-19 TEST [facility] PCR (08/08/2020 21:00 EST) Swab ENTIRE NASOPHARYNX / Unknown Swab / Unknown 08/08/2020 21:00 EST 08/08/2020 21:04 EST us Asuncion Telles MD MICROBIOLOGY - GENERAL ORDERABL ES Final Result [facility] [address] [place] [address] [place] [address] * COVID-19 TESTING (08/08/2020 21:00 EST) COVID-19 rt-PCR Result Negative Negative 08/08/2020 23:52 EST [facility] Comment: This test has [...] history, and epidemiological information. Performed on the [email or web address] Fusion instrument Performing Lab [place] [facility] 08/08/2020 23:52 EST [facility] Swab ENTIRE NASOPHARYNX / Unknown Swab / Unknown 08/08/2020 21:00 EST 08/08/2020 21:04 EST Asuncion Telles MD MICROBIOLOGY - GENERAL ORDERABL ES Final Result Performing Organization Address City/[facility] Co de Phone Number [facility] [address] [place] [address] * LACTIC ACID (08/08/2020 21:00 EST) Lactic Acid 1.2 <=2.0 mmol/L 08/08/2020 21:17 EST [facility] Blood VENOUS BLOOD / Unknown Venipuncture / Unknown 08/08/2020 21:00 EST 08/08/2020 21:05 EST us Asuncion Telles MD CHEMISTRY & BLOOD GAS ORDERABLE S Final Result [facility] [address] [place] [address] * BACTERIAL CULTURE, BLOOD (08/08/2020 21:00 EST) Organism ID No Growth at 5 days 08/13/2020 21:30 EST [facility] Blood VENOUS BLOOD / Unknown Blood Culture / Unknown 08/08/2020 21:00 EST 08/08/2020 21:17 EST Asuncion Telles MD MICROBIOLOGY - GENERAL ORDERABL ES Final Result Performing Organization Address [facility] Co de Phone Number [facility] [address] [place] [address] * BACTERIAL CULTURE, BLOOD (08/08/2020 20:59 EST) Organism ID No Growth at 5 days 08/13/2020 21:30 EST [facility] Blood VENOUS BLOOD / Unknown Blood Culture / Unknown 08/08/2020 20:59 EST 08/08/2020 21:17 EST Asuncion Telles MD MICROBIOLOGY - GENERAL ORDERABL ES Final Result Performing Organization Address [facility] de Phone Number [facility] [address] [place] [address] * ED LUMBAR PUNCTURE BEDSIDE OR CLINIC PERFORMED (08/08/2020 19:21 EST) Narrative [facility] E[facility] - 08/08/2020 19:21 EST Elise Charles MD ? 08/09/2020 ??9:40 Lumbar Puncture Date/Time: 08/08/2020 22:31 Performed by: Asuncion Telles MD Authorized by: Elise Charles MD Consent: ??Consent obtained: ??Verbal ??Consent given by: ??Patient ??Risks discussed: ??Bleeding, headache, nerve damage, infection, pain and repeat procedure ??Alternatives discussed: ??No treatment [place] protocol: ??Procedure explained and questions answered to [...] O RDERABLES Final Result Performing Organization Address [facility]/ZIP Co de Phone Number [facility] * C REACTIVE PROTEIN (08/08/2020 19:07 EST) C-Reactive Protein <7.0 <10.0 mg/L 08/08/2020 21:11 EST [facility] Blood VENOUS BLOOD / Unknown Venipuncture / Unknown 08/08/2020 19:07 EST 08/08/2020 19:12 EST us Asuncion Telles MD CHEMISTRY & BLOOD GAS ORDERABLE S Final Result Performing Organization Address [facility]/ZIP Co de Phone Number [facility] [address] [place] [address] * SED. RATE:WESTERGREN (08/08/2020 19:07 EST) Pathologist [facility] Sed Rate 12 0 - 20 mm/hr 08/08/2020 21:15 EST [facility] Blood VENOUS BLOOD / Unknown Venipuncture / Unknown 08/08/2020 19:07 EST 08/08/2020 19:12 EST Asuncion Telles MD HEMATOLOGY & PF4 ORDERABLES Fin al Result Performing Organization Address City/[facility]/ZIP Co de Phone Number [facility] [address] [place] [address] * (ABNORMAL) BETA HYDROXYBUTYRATE (08/08/2020 19:07 EST) [facility] Beta Hydroxybutyrate 2.7(H) <0.4 mmol/L 08/08/2020 20:43 EST [facility] Blood VENOUS BLOOD / Unknown Venipuncture / Unknown 08/08/2020 19:07 EST 08/08/2020 19:12 EST Elise Charles MD CHEMISTRY & BLOOD GAS CLEMENTE GOLDEN Final Result Performing Organization Address [facility]/ZIP Co de Phone Number [facility] [address] [place] [address] * LIPASE (08/08/2020 19:07 EST) Pathologist [facility] Lipase 194 <251 U/L 08/08/2020 19:35 EST [facility] Blood VENOUS BLOOD / Unknown Venipuncture / Unknown 08/08/2020 19:07 EST 08/08/2020 19:12 EST us Asuncion Telles MD CHEMISTRY & BLOOD GAS ORDERABLE S Final Result Performing Organization Address [facility] Co de Phone Number [facility] [address] [place] [address] * (ABNORMAL) COMPREHENSIVE METABOLIC PANEL (CMP) (08/08/2020 19:07 EST) Pathologist [facility] Sodium 136 136 - 145 mEq/L 08/08/2020 19:38 [facility] Potassium 3.7 3.5 - 5.0 mEq/L 08/08/2020 19:38 [facility] Comment: NOTE: Interpret with caution. Prolonged sample storage may alter the result. Chloride 91(L) 96 - 110 mEq/L 08/08/2020 19:38 [facility] CO2 Total 28 22 - 32 mEq/L 08/08/2020 19:38 [facility] Comment: NOTE: Interpret with caution. Prolonged sample storage may alter the result. Glucose 224(H) 70 - 100 mg/dL 08/08/2020 19:38 [facility] BUN 12 10 - 26 mg/dL 08/08/2020 19:38 [facility] Creatinine 0.59 0.52 - 1.04 mg/dL 08/08/2020 19:38 [facility] eGFR 119 >60 mL/min/1.7 3m2 08/08/2020 19:38 [facility] Comment:eGFR calculated gil curtis CKD-EPI equation for non- Americans. Multiply eGFR by 1.16 for patients. Total Protein 7.8 6.3 - 8.2 g/dL 08/08/2020 19:38 [facility] Albumin 4.9 3.4 - 4.9 g/dL 08/08/2020 19:38 [facility] Alkaline Phosphatase 97 38 - 126 U/L 08/08/2020 19:38 [facility] AST 29 15 - 46 U/L 08/08/2020 19:38 [facility] ALT 23 <35 U/L 08/08/2020 19:38 [facility] Bilirubin, Total 1.0 <1.4 mg/dL 08/09/19 19:38 [facility] Calcium 10.5 8.5 - 10.5 mg/dL 08/08/2020 19:38 [facility] Calculated Calcium 9.8 8.5 - 10.5 mg/dL 08/08/2020 19:38 [facility] Blood VENOUS BLOOD / Unknown Venipuncture / Unknown 08/08/2020 19:07 EST 08/08/2020 19:12 EST us Asuncion Telles MD CHEMISTRY & BLOOD GAS ORDERABLE S Final Result [facility] [address] [place] [address] * (ABNORMAL) COMPLETE BLOOD COUNT AND DIFFERENTIAL (08/08/2020 19:07 EST) WBC 16.16(H) 4.00 - 12.40 K/cmm 08/08/2020 19:33 [facility] RBC 4.94 3.86 - 5.04 M/cmm 08/08/2020 19:33 [facility] Hemoglobin 15.3(H) 11.6 - 15.2 gm/dL 08/08/2020 19:33 [facility] HCT 41.4 34.9 - 44.4 % 08/08/2020 19:33 [facility] MCV 84 81 - 98 fl 08/08/2020 19:33 [facility] MCH 31.0 26.7 - 33.3 pg 08/08/2020 19:33 [facility] MCHC 37.0(H) 32.1 - 35.9 gm/dL 08/08/2020 19:33 [facility] RDW-CV 11.9 <14.7 % 08/08/2020 19:33 [facility] RDW-SD 36.2 <50.4 fl 08/08/2020 19:33 [facility] PLT 416(H) 141 - 377 K/cmm 08/08/2020 19:33 [facility] MPV 9.7 9.5 - 12.7 fl 08/08/2020 19:33 [facility] % Neutrophils 65.9 % 08/08/2020 19:33 [facility] % Lymphocytes 25.0 % 08/08/2020 19:33 [facility] % Monocytes 8.1 % 08/08/2020 19:33 [facility] % Eosinophils 0.4 % 08/08/2020 19:33 [facility] % Basophils 0.4 % 08/08/2020 19:33 [facility] % Immature Grans 0.2 % 08/09/19 19:33 [facility] Absolute Neutrophils 10.63(H) 2.20 - 8.85 K/cmm 08/08/2020 19:33 [facility] Absolute Lymphocytes 4.04(H) 1.09 - 3.30 K/cmm 08/08/2020 19:33 [facility] Absolute Monocytes 1.31(H) 0.10 - 0.80 K/cmm 08/08/2020 19:33 [facility] Absolute Eosinophils 0.07 0.03 - 0.61 K/cmm 08/08/2020 19:33 [facility] ABS Basophils 0.07 0.01 - 0.11 K/cmm 08/08/2020 19:33 [facility] Absolute Immature Grans 0.04 0.00 - 0.06 K/cmm 08/08/2020 19:33 [facility] Type of Differential: Auto 08/08/2020 19:33 [facility] Blood VENOUS BLOOD / Unknown Venipuncture / Unknown 08/08/2020 19:07 EST 08/08/2020 19:12 EST us Asuncion Telles MD PACKAGES & DNA PROBE ORDERABLES Final Result [facility] [address] [place] [address] * HOLD SST (08/08/2020 19:07 EST) Hold Hold 08/08/2020 20:15 [facility] Blood VENOUS BLOOD / Unknown Venipuncture / Unknown 08/08/2020 19:07 EST 08/08/2020 19:12 EST us Elise Charles MD LAB INFO SERVICE AND SUPPO RT & PHONE RESULT Final Result [facility] [address] [place] [address] * HOLD LAVENDER TOP (08/08/2020 19:07 EST) Hold Hold 08/08/2020 20:15 EST [facility] Blood VENOUS BLOOD / Unknown Venipuncture / Unknown 08/08/2020 19:07 EST 08/08/2020 19:12 EST us Elise Charles MD LAB INFO SERVICE AND SUPPO RT & PHONE RESULT Final Result [facility] [address] [place] [address] * HOLD GREEN TOP (08/08/2020 19:07 EST) Hold Hold 08/08/2020 20:15 EST [facility] Blood VENOUS BLOOD / Unknown Venipuncture / Unknown 08/08/2020 19:07 EST 08/08/2020 19:12 EST us Elise Charles MD LAB INFO SERVICE AND SUPPO RT & PHONE RESULT Final Result [facility] [address] [place] [address] * HOLD BLUE TOP (08/08/2020 19:07 EST) Hold Hold 08/08/2020 20:15 EST [facility] Blood VENOUS BLOOD / Unknown Venipuncture / Unknown 08/08/2020 19:07 EST 08/08/2020 19:12 EST us Elise Charles MD LAB INFO SERVICE AND SUPPO RT & PHONE RESULT Final Result [facility] [address] [place] [address] * EKG 12-LEAD (08/08/2020 19:04 EST) 08/08/2020 19:0 4 EST Narrative [facility] - 08/25/2020 13:16 EDT ?[facility] Emergency ? Test Date: ?2020-08-08 Pat Name: ? CRISTY LUO ?Department: ?? ED ? Room: ? AC14 Gender: ? Female ? Retort Setter: ?? [id number] : ?1985 ? Requested By: SUSANNE Huizar Order Number: [id number] ? Sammie MD: ?? CINDY GARCIA MD ? Measurements Intervals ?[place] ? Rate: ? 86 ? P: ?65 LA: ? 139 ?QRS: ?48 QRSD: ? 93 [...] LUO Department: ED Room: 14 Gender: Female Retort Setter: [id number] : 1985 Requested By: SUSANNE Huizar Order Number: [id number] Sammie MD: CINDY GARCIA MD Measurements Intervals [place] Rate: 86 P: 65 LA: 139 QRS: 48 QRSD: 93 T: 20 [...] MD CARDIAC ECG ORDERABLES Final R esult [facility] * (ABNORMAL) POCT GLUCOSE, INTERFACED (08/08/2020 18:54 EST) Glucose, POC 213(H) 70 - 100 mg/dL 08/08/2020 18:55 EST [facility] golf ball trimmer ID [id number] 08/08/2020 18:55 EST [facility] HN LAB POC COMMENT (GLUCOSE) Test Performed by Nursing Services 08/08/2020 18:55 EST [facility] Blood CAPILLARY BLOOD / Unknown 08/08/2020 18:54 EST 08/08/2020 18:55 EST us Provider Joe MARTÍNEZ POINT OF CARE TEST ORDERABLE S Final Result Performing Organization Address City/[facility]/ZIP Co de Phone Number [facility] [address] [place] [id number] documented in this encounter Visit Diagnoses Diagnosis Generalized abdominal pain- Primary Abdominal pain, generalized Generalized abdominal pain Abdominal pain, generalized Emesis, persistent Persistent vomiting Type 2 diabetes mellitus with hyperosmolarity without coma, with long-term current use of insulin ([facility]) Dehydration Gastroparesis Abdominal pain Abdominal pain, unspecified site Emesis, persistent Persistent vomiting Dehydration Gastroparesis Generalized abdominal pain Abdominal pain, generalized Emesis, persistent Persistent vomiting Type 2 diabetes mellitus with hyperosmolarity without coma, with long-term current use of insulin ([facility]) documented in this encounter Administered Medications [...] Discontinued, Routine 0920 (Given - Provider: Vinicius lBood RN)1333 (Given - Provider: Vinicuis Blood RN) 0737 (Given - Provider: Fawn [...] - Provider: Jayne Perera RN - Comment: [phone] (Not Given - Provider: Vinicius Blood RN [...] RN)0900 (Canceled Entry - Provider: Rivera Kerr [facility])2100 (Not Given - Provider: Eryn Goss RN [...]
--- OUTSIDE RECORDS SUMMARY | 2024-05-31 07:29 | XMS_ITS | Encounter Summary ---
Author Organization [facility] Address [address] [place] [address] Care Team Providers Care Ore Roaster Name Role Phone Unavailable Primary Care Provider [...]
--- OUTSIDE RECORDS SUMMARY | 2024-05-31 07:29 | XMS_ITS | Encounter Summary ---
Author Organization [facility] Address [address] [place] [address] Care Team Providers Care Governor Assembler Name Role Phone Unavailable Primary Care Provider Unavailabl e Reason for Visit * Reason Onset Date Comments Medications Refill 09/02/2020 Encounter Details Date Type Department Care Team (Late st Contact Info) Description 09/02/2020 Refill [facility] Endocrinology - [facility] [address] [place], [place] [id number] Sara Zafar NP [address] [facility] [address] [place] [address] Medications Refill [...] her last appointment. Screw on tips. Pharmacy [id number] - [place], [place] - [facility] [address]?[phone] Next Visit Date Visit date not found Out of Medication? Yes none left Valencia Carrillosier 09/02/2020 12:44 documented in this encounter Plan of Treatment Not on file documented as of this encounter Visit Diagnoses Diagnosis Type 2 diabetes mellitus with hyperglycemia, with long-term current use of insulin ([facility])- Primary documented in this encounter
--- OUTSIDE RECORDS SUMMARY | 2024-05-31 07:29 | XMS_ITS | Encounter Summary ---
Author Organization [facility] Address [address] [place] [address] Care Team Providers Care Culinary Artist Name Role Phone Unavailable Primary Care Provider [...]
--- OUTSIDE RECORDS SUMMARY | 2024-05-31 07:29 | XMS_ITS | Encounter Summary ---
Author Organization [facility] Address [address] [place] [address] Care Team Providers Care Matcher Offbearer Name Role Phone Unavailable Primary Care Provider Unavailabl e Encounter Details Date Type Department Care Team (Latest Contact Info) Description 08/18/2020 16:20 EDT Phlebotomy Only [facility] - [facility] [address] [place] [address] Encounter for preprocedure screening laboratory testing for [...] Answer Entry Date Author No 08/09/2020 0:58 Niehsa Yen RN documented in this encounter Plan of Treatment Not on file documented as of this encounter Procedures Procedure Name Priority Date/Time Associated Diagnosis Comments ZZCOVID-19 TEST [facility] PCR STAT 08/18/2020 16:23 EDT Encounter for preprocedure screening laboratory testing for COVID-19 COVID-19 TESTING STAT 08/18/2020 16:2 3 EDT Encounter for preprocedure screening laboratory testing for COVID-19 documented in this encounter Results * COVID-19 TEST [facility] PCR (08/18/2020 16:23 EDT) Swab ENTIRE NASOPHARYNX / Unknown Swab / Unknown 08/18/2020 16:23 EDT 08/18/2020 16:23 EDT Nimisha Bay MD MICROBIOLOGY - GENERAL CLEMENTE GOLDEN Final Result [facility] [address] [place] [address] * COVID-19 TESTING (08/18/2020 16:23 EDT) COVID-19 rt-PCR Result Negative Negative 08/19/2020 15:57 EDT [facility] Comment: This test has [...] testing. This test is based on the [facility] COVID-19 Emergency Use Authorization (EUA) assay, with minor modification as defined by the FDA Performed on the [employer] Flex RT-PCR System. Performing Lab [facility] 08/19/2020 15:57 EDT [facility] Swab ENTIRE NASOPHARYNX / Unknown Swab / Unknown 08/18/2020 16:23 EDT 08/18/2020 16:23 EDT us Nimisha Bay MD MICROBIOLOGY - GENERAL CLEMENTE GOLDEN Final Result [facility] [address] [place] [address] documented in this encounter Visit Diagnoses Diagnosis Encounter for preprocedure screening laboratory testing for COVID-19 documented in this encounter
--- OUTSIDE RECORDS SUMMARY | 2024-05-31 07:29 | XMS_ITS | Encounter Summary ---
Author Organization [facility] Address [address] [place] [address] Care Team Providers Care Carriage Setter Name Role Phone Unavailable Primary Care Provider Unavailabl e Reason for Visit * Reason Onset Date Comments New/Evolving Symptoms 08/07/2020 Encounter Details Date Type Department Care Team (Late st Contact Info) Description 08/07/2020 Telephone [facility] [address] [id number] Tonja Alejandro PA-C [address] [place] [address] [place] [phone] New/Evolving Symptoms Social History Tobacco Use [...] Angelica Blanco DO - 08/07/2020 1916 EST call center recruiter message: Patient's Fermin called several hours after [...] trouble swallowing. I spoke with GI attending ultrasonic hand solderer. Recommendations included going to the ER if [...]
--- OUTSIDE RECORDS SUMMARY | 2024-05-31 07:29 | XMS_ITS | Encounter Summary ---
Author Organization [facility] Address [address] [place] [address] Care Team Providers Care Mortgage Loan Coordinator Name Role Phone Unavailable Primary Care Provider Unavailabl e Reason for Visit * Reason Onset Date Comments Procedure 08/18/2020 Encounter Details Date Type Department Care Team (Late st Contact Info) Description 08/18/2020 Orders Only [facility] OBGYN Services - [facility] [address] [place], [place] [phone] Nimisha Bay MD [address] [facility], [address] [place] [address] Encounter for preprocedure screening laboratory [...] Negative Negative 08/19/2020 15:57 EDT [facility] Comment: This test has not [...] developed and its performance characteristics determined by [facility]. It has not been cleared or approved [...] testing. This test is based on the [facility] COVID-19 Emergency Use Authorization (EUA) assay, with minor modification as defined by the FDA Performed on the [employer] Flex RT-PCR System. Performing Lab [facility] 08/19/2020 15:57 EDT [facility] Swab ENTIRE NASOPHARYNX / Unknown Swab / Unknown 08/18/2020 16:23 EDT 08/18/2020 16:23 EDT us Nimisha Bay MD MICROBIOLOGY - GENERAL CLEMENTE GOLDEN Final Result [facility] [address] [place] [address] documented in this encounter Visit Diagnoses Diagnosis Encounter for preprocedure screening laboratory testing for COVID-19- Primary documented in this encounter
--- OUTSIDE RECORDS SUMMARY | 2024-05-31 07:29 | XMS_ITS | Encounter Summary ---
Author Organization [facility] Address [address] [place] [address] Care Team Providers Care Educational Technology Coordinator Name Role Phone Unavailable Primary Care Provider Unavailabl e Reason for Visit * Reason Comments Post-OP Follow Up Encounter Details Date Type Department Care Team (Late st Contact Info) Description 09/04/2020 16:15 EDT Post-op Visit [facility] OBGYN Services - [address] [address] [place] [address] [place] [phone] Dysuria (Primary Dx) [...] 1615 EDT Department of Obstetrics and Gynecology [facility] [place] Clinic CC: Postop follow-up Procedure: Laparoscopic bilateral [...] established with PCP but interested in annual GRITTING MACHINE OPERATOR with [facility] [place] clinic - Recommend scheduling visit for annual in [address] Alfonso. Clarke Joseph MD Obstetrics and Gynecology, PGY-2 Pager #[phone] 09/04/20 16:35 * Cristy Alfonso MD MPH [...] CFU/ml Usual urogenital candis. 09/06/2020 10:45 EDT [facility] Urine URINE SPECIMEN COLLECTION, CLEAN CATCH / Unknown Urine Collect / Unknown 09/04/2020 16:57 EDT 09/04/2020 17:53 EDT Cristy Alfonso MD MPH MICROBIOLOGY - GENERAL ORDERABLES Final Result [facility] [address] [place] [address] * (ABNORMAL) URINE CHEMICAL (DIP) & SEDIMENT (MICRO) WITH REFLEX TO CULTURE (09/04/2020 16:57 EDT) Color UA Yellow Colorless, Yellow 09/04/2020 17:53 EDT [facility] Clarity UA Clear Clear 09/04/2020 17:53 EDT [facility] Glucose UA Negative Negative 09/04/2020 17:53 [facility] Bilirubin UA Negative Negative 09/04/2020 17:53 [facility] Ketones UA Trace(A) Negative 09/04/2020 17:53 [facility] Specific [place], Urine 1.032 1.001 - 1.035 09/04/2020 17:53 [facility] Blood UA Negative Negative 09/04/2020 17:53 [facility] Urobilinogen UA 3(A) Normal mg/dL 09/04/2020 17:53 [facility] Nitrite UA Negative Negative 09/04/2020 17:53 [facility] Leukocyte Esterase UA Trace(A) Negative 09/04/2020 17:53 [facility] Protein UA 1+(A) Negative 09/04/2020 17:53 [facility] pH, UA 6.5 4.6 - 8.0 09/04/2020 17:53 [facility] Urine RBC Count, Auto 3 - 10(A) 0 - 2 Cells/HPF 09/04/2020 17:53 [facility] Urine WBC Count, Auto 11 - 50(A) 0 - 3 Cells/HPF 09/04/2020 17:53 [facility] Urine Squamous Count, Auto Many(A) None Seen Cells/HPF 09/04/2020 17:53 [facility] Urine Hyaline Cast Count, Auto <=10 <=10 Casts/LPF 09/04/2020 17:53 [facility] Urine Bacteria Count, Auto Few(A) None Seen Bacteria/HP F 09/04/2020 17:53 [facility] Urine URINE SPECIMEN COLLECTION, CLEAN CATCH / Unknown Urine Collect / Unknown 09/04/2020 16:57 EDT 09/04/2020 17:03 [facility] - 09/04/2020 17:53 EDT A Urine Culture test has been reflexively ordered based on result criteria from the Urine Sediment Analysis. Urine Sediment Analysis results are unreliable on urines that are unrefrigerated for >2 hrs or refrigerated >8 hrs. us Cristy Alfonso MD MPH URINALYSIS ORDERABLES Final Result [facility] [address] [place] [address] documented in this encounter Visit Diagnoses Diagnosis Dysuria- Primary documented in this encounter
--- OUTSIDE RECORDS SUMMARY | 2024-05-31 07:29 | XMS_ITS | Encounter Summary ---
Author Organization [facility] Address [address] [place] [address] Care Team Providers Care Hydrocrane Operator Name Role Phone Unavailable Primary Care Provider Unavailabl e Encounter Details Date Type Department Care Team (Latest Contact Info) Description 08/12/2020 10:30 EST - 08/12/2020 23:59 EST Hospital Encounter [facility] Pre-Surgical Testing [address] [place], [place] [id number] Discharge Disposition: Home or Self Care Social [...] instruct them to call us back at [phone] to report symptoms (If patient is in [...]
--- OUTSIDE RECORDS SUMMARY | 2024-05-31 07:29 | XMS_ITS | Encounter Summary ---
Author Organization [facility] Address [address] [place] [address] Care Team Providers Care Business Process Manager Name Role Phone Unavailable Primary Care Provider Unavailabl e Reason for Visit * Reason Onset Date Comments Advice Only 08/07/2020 Encounter Details Date Type Department Care Team (Late st Contact Info) Description 08/07/2020 Telephone [facility] Endocrinology - [facility] [address] [place] [address] Sara Zafar NP [address] [facility] [address] [place] [address] Advice Only Social History Tobacco [...] to the provider regarding patients insulin. Asked rewriter to zandra High Priority. PCP paged Sara Zafar thru [facility] with no response documented in this encounter Plan of Treatment Not on file documented as of this encounter Visit Diagnoses Not on filedocumented in this encounter
--- OUTSIDE RECORDS SUMMARY | 2024-05-31 07:29 | XMS_ITS | Encounter Summary ---
Author Organization [facility] Address [address] [place] [address] Care Team Providers Care Metal Miner Name Role Phone Unavailable Primary Care Provider Unavailabl e Reason for Visit * Reason Onset Date Comments Paperwork request 08/29/2020 paperwork for adoption Encounter Details Date Type Department Care Team (Late st Contact Info) Description 08/29/2020 Telephone [facility] Adult Primary Care - [address] [address] Tonja Alejandro PA-C [address] [place] [address] [place] [phone] Paperwork request (paperwork for adoption) Social [...] EDT Form filled out. Will place in [facility] box to be sent out. * [...]
--- OUTSIDE RECORDS SUMMARY | 2024-05-31 07:29 | XMS_ITS | Encounter Summary ---
Author Organization [facility] Address [address] [place] [address] Care Team Providers Care Manager Reporting Name Role Phone Unavailable Primary Care Provider Unavailabl e Reason for Visit * Reason Onset Date Comments Hospital Discharge Follow Up 08/11/2020 Encounter Details Date Type Department Care Team (Late st Contact Info) Description 08/11/2020 Telephone [facility] Adult Primary Care [address] [phone] Tonja Alejandro PA-C [address] [place] [address] [place] [phone] Hospital Discharge Follow Up Social History [...]
--- OUTSIDE RECORDS SUMMARY | 2024-05-31 07:29 | XMS_ITS | Encounter Summary ---
Author Organization [facility] Address [address] [place] [address] Care Team Providers Care Golf Course Assistant Name Role Phone Unavailable Primary Care Provider Unavailabl e Reason for Visit * Reason Comments Hospital Discharge Follow Up Encounter Details Date Type Department Care Team (Latest Contact Info) Description 08/14/2020 9:00 EST Office Visit [facility] Adult Primary Care - [address] [address] Tonja Alejandro PA-C [address] [place] [address] [address] [place] [address] Type 2 diabetes mellitus with hyperosmolarity without coma, with long-term current use of insulin ([facility]) (Primary Dx); Gastroparesis Social History Tobacco Use [...] Alejandro PA-C [facility] Adult Primary [facility] 08/19/2020 9:13 I spent a total of [...] current use of insulin ([facility])- Primary Gastroparesis documented in this encounter Discontinued Medications Medication Sig Discontinue Reason Start Date End Da te LORazepam (ATIVAN) 0.5 mg tablet Take 1 Tab by mouth 3 times daily as needed for Anxiety. Daily Max: 1.5 mg Reorder 08/07/2020 08/14/2020 documented as of this encounter
--- OUTSIDE RECORDS SUMMARY | 2024-05-31 07:29 | XMS_ITS | Encounter Summary ---
Author Organization [facility] Address [address] [place] [address] Care Team Providers Care Camera Storage Clerk Name Role Phone Unavailable Primary Care Provider Unavailabl e Encounter Details Date Type Department Care Team (Late st Contact Info) Description 08/14/2020 Orders Only [facility] OBGYN Services - [address] [address] Rosa Chang RN Pre-procedure lab exam (Primary [...]
--- OUTSIDE RECORDS SUMMARY | 2024-05-31 07:29 | XMS_ITS | Encounter Summary ---
Author Organization [facility] Address [address] [place] [address] Care Team Providers Care Panel Wirer Name Role Phone Unavailable Primary Care Provider [...]
--- OUTSIDE RECORDS SUMMARY | 2024-05-31 07:29 | XMS_ITS | Encounter Summary ---
Author Organization [facility] Address [address] [place] [address] Care Team Providers Care Supervisor Asbestos Textile Name Role Phone Unavailable Primary Care Provider Unavailabl e Reason for Visit * Auth/Cert Specialty Diagnoses / Procedures Referred By Contac t Referred To Contact Diagnoses Unwanted fertility Procedures AL LAP,RMV ADNEXAL STRUCTURE Nimisha Bay MD [address] [place] [address] Medical Office Building, [address] [place] [address] Phone: tel: fax: Referral ID Status Reason Start Date Expiration Date Visits Re quested Visits Authorized [id number] 06/30/2020 1 1 Encounter Details Date Type Department Care Team (Late st Contact Info) Description 08/20/2020 13:05 EDT Anesthesia Event [facility] [place] [address] [place] [address] Cece Marrufo MD [address] [address] Jhonatan Peterson, RICA [address] [facility], [address] [place] [address] Anesthesia Record Procedure Summary Procedure [...] Complete vitals history is available in the [facility] Ohiosheets. Vitals Value Taken Time BP 130/73 08/20/20 [...] has a referral for therapy. ??? Diabetes ([facility]) A1c 10.3 on 11/28/2019 - poorly controlled ??? Diabetes mellitus, type 2 ([facility]) pt check blood sugars at home- [...] vomiting occasionally ??? Obesity, unspecified ??? Osteomyelitis ([facility]) of left great toe-s/p amputation ??? Peripheral neuropathy 08/12/20- Bilateral feet-Takes Gabapentin- pt just started this med. ??? Productive cough pt currently quitting smoking- clear secretions. ??? Spontaneous miscarriage 09/04/201502/18, 08/19. Followed by Dr. López/Affiliates in OBGYN Relevant Problems Neuro/Psych (+) Hx of ectopic CARDIOVASCULAR (+) Migraine with aura and without status migrainosus, not intractable ENDO/GI (+) Type 2 diabetes mellitus ([facility]) (+) Type 2 diabetes mellitus with diabetic polyneuropathy, with long-term current use of insulin ([facility]) (+) 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 ([facility]) Other (+) Osteomyelitis of great toe [...] and Staff Patient location during procedure: OR Resident/COGNOS REPORT DEVELOPER: Jhonatan Peterson AA Performed: resident/COGNOS REPORT DEVELOPER/AA Indications and Patient Condition Indications for airway [...] and Staff Patient location during procedure: OR Resident/COGNOS REPORT DEVELOPER: Jhonatan Peterson AA Performed: resident/COGNOS REPORT DEVELOPER/AA Indications and Patient Condition Indications for airway [...]
--- OUTSIDE RECORDS SUMMARY | 2024-05-31 07:29 | XMS_ITS | Encounter Summary ---
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 [place]'s Nir Ozempic 0.25 mg weekly for 4 weeks.. If tolerated increased to 0.5 mg weekly for 4 weeks and athn To 1.0 weekly. If severe nausea drop to lower dose for another month and retry. Try to avoid bolusing between snacks. RD referral F/U in 4 months with new RESEARCH SCIENTIST. documented in this encounter Ordered Prescriptions Prescription [...] APRN - 08/27/2020 1030 EDT Subjective: [facility] diabetes Center F/U Note T Patient [...] trimester miscarriages, most recently terminated a at [facility] 10/28/2019. Recurrent loss is attributed to to poorly controlled type 2 diabetes in conjunction with tobacco dependence. She saw STERILE PROCESSING TECHNICIAN on 11/03/2018, and was advised to get [...] siblings, knows about 2, no DM. 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 Previous marriage [...] to [email or web address] 3. Kathleen [place] CGM. ordered [facility] 4. Try to avoid bolusing between snacks. 5. RD referral 6. Consider using 1/2 unit pen for Novolog. 6. F/U in 4 months with new RESEARCH SCIENTIST as I will be retiring in October. [...] diabetes mellitus with left diabetic foot ulcer ([facility]) Type II or unspecified type diabetes mellitus with other specified manifestations, not stated as uncontrolled documented in this encounter Historical Medications * This list may reflect changes made after this encounter. gabapentin (NEURONTIN) 100 mg capsule Take 100 mg by mouth 2 times daily before breakfast and lunch. 1 added in this encounter
--- OUTSIDE RECORDS SUMMARY | 2024-05-31 07:29 | XMS_ITS | Encounter Summary ---
Author Organization [facility] Address [address] [place] [address] Care Team Providers Care Phlebotomy Tech Name Role Phone Unavailable Primary Care Provider Unavailabl e Reason for Referral * Radiology Services (Routine) - Closed Specialty Diagnoses / Procedures Referred By Annetteac rupa Referred To Contact Nuclear Medicine Diagnoses Generalized abdominal pain Emesis, persistent Type 2 diabetes mellitus with hyperosmolarity without coma, with long-term current use of insulin ([facility]) Procedures NM GASTRIC EMPTYING SOLID Broderick Irene MD Phone: tel: fax: Referral ID Status Reason Start Date Expiration Date Visits Re quested Visits Authorized [id number] Closed 08/10/2020 1 1 Reason for Visit * Radiology Services (Routine) - Closed Specialty Diagnoses / Procedures [facility] Referred To Contact Nuclear Medicine Diagnoses Generalized abdominal pain Emesis, persistent Type 2 diabetes mellitus with hyperosmolarity without coma, with long-term current use of insulin ([facility]) Procedures NM GASTRIC EMPTYING SOLID Broderick Irene MD Phone: tel: fax: Referral ID Status Reason Start Date Expiration Date Visits Re quested Visits Authorized [id number] Closed 08/10/2020 1 1 Encounter Details Date Type Department Care Team (Latest Contact Info) Description 09/09/2020 8:27 EDT - 09/09/2020 23:59 EDT Hospital Encounter [facility] Radiology Nuclear Medicine and PET - [address] [address] Generalized abdominal pain; Emesis, persistent; Type 2 diabetes mellitus with hyperosmolarity without coma, with long-term current use of insulin ([facility]) Discharge Disposition: Home or Self Care [...] hyperglycemia, with long-term current use of insulin ([facility]) Use 1 pen needle as directed 4 times daily. 400 Each 2 09/02/2020 3 lancets One [employer] or other brand compatible with lancing device [...] coma, with long-term current use of insulin ([facility]) POCT GLUCOSE, INTERFACED Routine 09/09/2020 8:47 EDT documented in this encounter Results * NM GASTRIC EMPTYING SOLID (09/09/2020 15:05 EDT) Anatomical Region Laterality Modality Body Nuclear Medicine 09/09/2020 16:1 0 EDT Impressions 09/09/2020 16:10 EDT Delayed gastric emptying for solid food. References: Manny et al. [employer] Journal of Gastroenterology 2000. Kev et al. Gastroenterology 2006 Roshni et al. [employer] Journal of Gastroenterology 2006. Narrative 09/09/2020 16:10 [...] for solid food. References: Manny et al. [place] Journal of Gastroenterology 2000. Kev et al. Gastroenterology 2006 Roshni et al. [place] Journal of Gastroenterology 2006. Broderick Irene MD IMG NM ORDERABLES Final Resul t * (ABNORMAL) POCT GLUCOSE, INTERFACED (09/09/2020 8:47 EDT) Pathologist [facility] Glucose, POC 107(H) 70 - 100 mg/dL 09/10/2020 6:44 EDT [facility] contact centre supervisor ID [id number] 09/10/2020 6:44 EDT [facility] HN LAB POC COMMENT (GLUCOSE) Test performed by Nuclear Medicine 09/10/2020 6:44 EDT [facility] Blood CAPILLARY BLOOD / Unknown 09/09/2020 8:47 EDT 09/10/2020 6:44 EDT us Provider Unknown POINT OF CARE TEST ORDERABLE S Final Result [facility] [address] [place] [address] documented in this encounter Visit Diagnoses Diagnosis Generalized abdominal pain Abdominal pain, generalized Emesis, persistent Persistent vomiting Type 2 diabetes mellitus with hyperosmolarity without coma, with long-term current use of insulin ([facility]) documented in this encounter Administered [...]
--- OUTSIDE RECORDS SUMMARY | 2024-05-31 07:29 | XMS_ITS | Encounter Summary ---
Author Organization [facility] Address [address] [place] [address] Care Team Providers Care Supervisor Looping Name Role Phone Unavailable Primary Care Provider Unavailabl e Reason for Referral * (Routine) - Receiving Office to Obtain Authorization Specialty Diagnoses / Procedures Referred By Contac t Referred To Contact [facility] [place] [address] [place] [address] Phone: tel: fax: Referral ID Status Reason Start Date Expiration Date Visits Requested Visits Authorized [id number] Receiving Office to Obtain Authorization Specialty Services Required 1 1 1 * (Routine) - Receiving Office to Obtain Authorization Specialty Diagnoses / Procedures Referred By Contac t Referred To Contact [facility] [place] [address] [place] [address] Phone: tel: fax: Referral ID Status Reason Start Date Expiration Date Visits Requested Visits Authorized [id number] Receiving Office to Obtain Authorization Specialty Services [...] LAP,RMV ADNEXAL STRUCTURE Nimisha Bay MD 6 [facility] Medical Office Building, [address] [place] [phone] Phone: tel: fax: Referral ID Status Reason Start Date Expiration Date Visits Re quested Visits Authorized [id number] 06/30/2020 1 1 Encounter Details Date Type Department Care Team (Latest Contact Info) Description 08/20/2020 9:59 EDT - 08/20/2020 15:35 EDT Hospital Encounter [facility] [place] [address] [place] [phone] Nimisha Bay MD 1 [facility] Medical Office Building, [address] [place] [phone] Discharge Disposition: Home or Self Care [...] 08/18/2020 14:27 PGY-4 Obstetrics and Gynecology Pager #[phone] documented in this encounter H&P Notes * [...] Egan D.O. 07/28/2020 11:05 Obstetrics/Gynecology PGY-1 Pager #[phone] documented in this encounter OR Notes * OR Surgeon - Nimisha Bay MD - 08/20/2020 1436 EDT Name: Cristy Luo :1985 Date of Service:@08/20/2020?? Surgeon: Dr. Nimisha Bay Instructor Trainer Canine Service:Tonja Egan D.O., Jackie Oropeza M.D. Procedure: Laparoscopy [...] lip of the cervix grasped with the [employer] tenaculum. ?? Attention was then turned to [...] Egan D.O. 08/20/2020 15:22 Obstetrics/Gynecology PGY-1 Pager #[phone] ?? Attending note: I was present for [...] full cross sections identified. 08/29/2020 7:12 EDT [facility] Attestation There was significant resident/fellow involvement in the diagnostic evaluation of this case. By the signature below, the attending physician certifies that they have personally conducted a gross and/or microscopic examination of the described specimens and rendered or confirmed the above diagnosis. 08/29/2020 7:12 [facility] at 0712 Clinical History Unwanted fertility 08/29/2020 7:12 [facility] Gross Description A. [...] spear. Sectioning reveals patent, unremarkable cut surfaces. Dictaphone Typist sections, to include the bisected fimbria, are submitted in A1 (shorter tube) and A2 (longer tube). EUNICE BAEZ(ASCP) 08/21/2020 9:18 08/29/2020 7:12 [facility] Resident/Cash w: John Smith MD 08/29/2020 7:12 [facility] Performing Lab [facility] 08/29/2020 7:12 [facility] Scanned Images 08/29/2020 7:12 EDT [facility] Tissue BOTH FALLOPIAN TUBES / Unknown 08/20/2020 13:15 EDT 08/20/2020 15:16 EDT us Nimisha Bay MD PATHOLOGY ORDERABLES Final Result Performing Organization Address [facility] Co de Phone Number [facility] [address] [place] [address] * (ABNORMAL) POCT GLUCOSE, INTERFACED (08/20/2020 11:26 EDT) Glucose, POC 119(H) 70 - 100 mg/dL 08/20/2020 11:26 EDT [facility] registration manager ID [id number] 08/20/2020 11:26 EDT [facility] HN LAB POC COMMENT (GLUCOSE) Test Performed by Nursing Services 08/20/2020 11:26 EDT [facility] Blood CAPILLARY BLOOD / Unknown 08/20/2020 11:26 EDT 08/20/2020 11:26 EDT Whit Rae MD POINT OF CARE TEST ORDERABLES Final Result Performing Organization Address [facility] de Phone Number [facility] [address] [place] [address] * TEST, URINE (08/20/2020 10:42 EDT) Test, Urine Negative Negative 08/20/2020 10:59 EDT [facility] Comment:False negative resul ts may occur in women who are beyond 5-8 weeks gestation. Diagnosis of should be based on a correlation of test results with typical clinical signs and symptoms. 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
--- OUTSIDE RECORDS SUMMARY | 2024-05-31 07:29 | XMS_ITS | Encounter Summary ---
Author Organization [facility] Address [address] [place] [address] Care Team Providers Care Salesperson Jewelry Name Role Phone Unavailable Primary Care Provider Unavailabl e Reason for Visit * Reason Onset Date Comments Hospital Discharge Follow Up 08/21/2020 Encounter Details Date Type Department Care Team (Late st Contact Info) Description 08/21/[address] [facility] Adult Primary Care - [address] [address] Benita Thompson, MARCELO Hospital Discharge Follow Up [...] Encounter - Benita Thompson RN - 08/21/2020 8477 EDT Hospital Discharge Follow Up: Same Day Surgery 08/20/20 Risk Assessment: high 44 Reason for admission: Laparoscopic bilateral salpingectomy Symptoms improving? Pain level 8.5-9/10. She only tolerates OTC Tylenol. Patient is aware to contact OBGYN for pain management. Discharge instructions available? yes Medications Reviewed/prescriptions filled? 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 Yes-spouse Home [...]
--- OUTSIDE RECORDS SUMMARY | 2024-05-31 07:29 | XMS_ITS | Encounter Summary ---
Author Organization [facility] Address [address] [place] [address] Care Team Providers Care Community Relations Liaison Name Role Phone Unavailable Primary Care Provider Unavailabl e Reason for Visit * Auth/Cert Specialty Diagnoses / Procedures Referred By Contac t Referred To Contact Diagnoses Unwanted fertility Procedures MD LAP,RMV ADNEXAL STRUCTURE Nimisha Bay MD [address] [place] [address] Medical Office Building, [address] [place] [address] Phone: tel: fax: Referral ID Status Reason Start Date Expiration Date Visits Re quested Visits Authorized [id number] 06/30/2020 1 1 Encounter Details Date Type Department Care Team (Late st Contact Info) Description 08/20/2020 12:00 EDT - 08/20/2020 14:55 EDT Surgery [facility] OR [address] [place] [address] Nimisha Bay MD [address] [place] [address] Medical Office Building, [address] [place] [address] Laparoscopic Bilateral Salpingectomy [35957 (CPT??)] Surgery Details Date/Time Status Location OR Service Patient Class Case Cl ass Case Type Trauma Case? 08/20/2020 1200 Posted [facility] OR [address] Outpatient Surgery H - Elective Panel [...] mL 3 12/04/2019 2 lancets One Touch [employer] or other brand compatible with lancing device [...] Health Care Facility documented in this encounter Progress Notes * [...] 08/18/2020 14:27 PGY-4 Obstetrics and Gynecology Pager #[phone] documented in this encounter H&P Notes * [...] Egan D.O. 07/28/2020 11:05 Obstetrics/Gynecology PGY-1 Pager #[phone] documented in this encounter OR Notes * OR Surgeon - Nimisha Bay MD - 08/20/2020 8986 EDT Name: Cristy Luo :1985 Date of Service:@08/20/2020?? Surgeon: Dr. Nimisha Bay Steel Rod Buster:Tonja Egan D.O., Jackie Oropeza M.D. Procedure: Laparoscopy [...] lip of the cervix grasped with the [employer] tenaculum. ?? Attention was then turned to [...] Egan D.O. 08/20/2020 15:22 Obstetrics/Gynecology PGY-1 Pager #[phone] ?? Attending note: I was present for [...] full cross sections identified. 08/29/2020 7:12 T [facility] Attestation There was significant resident/fellow involvement in the diagnostic evaluation of this case. By the signature below, the attending physician certifies that they have personally conducted a gross and/or microscopic examination of the described specimens and rendered or confirmed the above diagnosis. 08/29/2020 7:12 [facility] at 0712 Clinical History Unwanted fertility 08/29/2020 7:12 [facility] Gross Description A. Received [...] spear. Sectioning reveals patent, unremarkable cut surfaces. Carpenter Refrigerator sections, to include the bisected fimbria, are submitted in A1 (shorter tube) and A2 (longer tube). EUNICE BAEZ(ASCP) 08/21/2020 9:18 08/29/2020 7:12 T [facility] Resident/Cash w: John Smith MD 08/29/2020 7:12 EDT [facility] Performing Lab [facility] 08/29/2020 7:12 EDT [facility] Scanned Images 08/29/2020 7:12 EDT [facility] Tissue BOTH FALLOPIAN TUBES / Unknown 08/20/2020 13:15 EDT 08/20/2020 15:16 EDT us Nimisha Bay MD PATHOLOGY ORDERABLES Final Result Performing Organization Address City/[facility] [address]/ZIP Co de Phone Number [facility] [address] [place] [address] * (ABNORMAL) POCT GLUCOSE, INTERFACED (08/20/2020 11:26 EDT) Glucose, POC 119(H) 70 - 100 mg/dL 08/20/2020 11:26 EDT [facility] supervisor fish hatchery ID [id number] 08/20/2020 11:26 EDT [facility] HN LAB POC COMMENT (GLUCOSE) Test Performed by Nursing Services 08/20/2020 11:26 EDT [facility] Blood CAPILLARY BLOOD / Unknown 08/20/2020 11:26 EDT 08/20/2020 11:26 EDT us Whit Rae MD POINT OF CARE TEST ORDERABLES Final Result Performing Organization Address City/[facility] [address]/ZIP Co de Phone Number [facility] [address] [place] [address] * TEST, URINE (08/20/2020 10:42 EDT) Test, Urine Negative Negative 08/20/2020 10:59 EDT [facility] Comment:False negative resul ts may occur in women who are beyond 5-8 weeks gestation. Diagnosis of should be based on a correlation of test results with typical clinical signs and symptoms. 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
--- OUTSIDE RECORDS SUMMARY | 2024-05-31 07:29 | XMS_ITS | Encounter Summary ---
Author Organization [facility] Address [address] [place] [address] Care Team Providers Care Brace End Mainspring Former Name Role Phone Unavailable Primary Care Provider Unavailabl e Encounter Details Date Type Department Care Team (Late st Contact Info) Description 09/02/2020 Orders Only [facility] Endocrinology - [facility] [address] [place] [address] Sara Zafar, GUSTAVO [address] [facility] [address] [place] [address] Type 2 diabetes mellitus with hyperglycemia, with long-term current use of insulin ([facility]) (Primary Dx) Social History Tobacco [...] hyperglycemia, with long-term current use of insulin ([facility])- Primary documented in this encounter
--- OUTSIDE RECORDS SUMMARY | 2024-05-31 07:29 | XMS_ITS | Encounter Summary ---
Author Organization [facility] Address [address] [place] [address] Care Team Providers Care Stud Master/Mistress Name Role Phone Unavailable Primary Care Provider [...]
--- OUTSIDE RECORDS SUMMARY | 2024-05-31 07:29 | XMS_ITS | Encounter Summary ---
Author Organization [facility] Address [address] [place] [address] Care Team Providers Care Testing Lead Name Role Phone Unavailable Primary Care Provider Unavailabl e Reason for Visit * Reason Onset Date Comments Surgery Scheduling 08/19/2020 Encounter Details Date Type Department Care Team (Late st Contact Info) Description 08/19/[address] [facility] OBGYN Services - [facility] [address] [place], [place] [phone] Nimisha Bay MD [address] [facility] Medical Office Building, [address] [place] [address] Surgery Scheduling Social History Tobacco [...]
--- OUTSIDE RECORDS SUMMARY | 2024-05-31 07:30 | XMS_ITS | Encounter Summary ---
Author Organization [facility] Address [address] [place] [address] Care Team Providers Care Sportspersons Name Role Phone Unavailable Primary Care Provider [...]
--- OUTSIDE RECORDS SUMMARY | 2024-05-31 07:30 | XMS_ITS | Encounter Summary ---
Author Organization [facility] Address [address] [place] [address] Care Team Providers Care Lithographer Helper Name Role Phone Unavailable Primary Care Provider Unavailabl e Reason for Visit * Reason Onset Date Comments No Show 07/16/2020 Yohannes 07/15/20 Encounter Details Date Type Department Care Team (Late st Contact Info) Description 07/16/2020 Telephone [facility] Endocrinology - [address] CDE [address] [facility] [address] [place] [address] No Show (Yohannes 07/15/20) Social [...]
--- OUTSIDE RECORDS SUMMARY | 2024-05-31 07:30 | XMS_ITS | Encounter Summary ---
Author Organization [facility] Address [address] [place] [address] Care Team Providers Care Carding Machine Feeder Name Role Phone Unavailable Primary Care Provider Unavailabl e Reason for Visit * Reason Comments Problem Encounter Details Date Type Department Care Team (Late st Contact Info) Description 06/25/2020 9:00 EST Office Visit [facility] OBGYN Services - [address] [address] Ana Coronado MD [address] [place] [address], [address] [place] [address] Unwanted fertility (Primary Dx) Social [...] told years ago ??? Depression ??? Diabetes ([facility]) A1c 10.3 on 11/28/2019 - poorly controlled ??? Difficulty opening mouth 06/13/2020 pain with opening mouth wide ??? Does not exercise 06/13/2020 due to infected toe ??? History of general anesthesia ??? Hx of ectopic 06/20/2020 ??? Irritable bowel syndrome 06/13/2020 ? ? Nausea & vomiting occasionally ??? Obesity, unspecified ??? Osteomyelitis ([facility]) of left great toe ??? Peripheral [...] 8. View: Sufficient. Impression OB Transvaginal - 59390. 1. of unknown location with findings that [...] I spoke with Dr. Mims, the benign repairer switchgear chief resident, and I will place a [...] indicated in the above progress note. Ana Croonado MD 06/25/2020 12:46 documented in this encounter [...]
--- OUTSIDE RECORDS SUMMARY | 2024-05-31 07:30 | XMS_ITS | Encounter Summary ---
Author Organization [facility] Address [address] [place] [address] Care Team Providers Care Chief Commercial Officer Name Role Phone Unavailable Primary Care Provider Unavailabl e Reason for Visit * Reason Comments Telemedicine Video Visit * Consult (Routine) - Order Cancelled Specialty Diagnoses / Procedures Referred By Contlesli t Referred To Contact Endocrinology Diagnoses Type 2 diabetes mellitus with hyperglycemia, with long-term current use of insulin ([facility]) Sara Zafar NP Phone: tel: fax: [facility] Endocrinology - [address] [address] Phone: tel: fax: Referral ID Status Reason Start Date Expiration Date Visits Requested Visits Authorized [id number] Order Cancelled Specialty Services Required 0 1 1 Encounter Details Date Type Department Care Team (Late st Contact Info) Description 07/01/2020 13:00 EST Nutrition [facility] Endocrinology - [address] CDE [address] [place] [address] [address] [place] [address] Type 2 diabetes mellitus with hyperglycemia, with long-term current use of insulin ([facility]) (Primary Dx) Social History Tobacco Use Types [...] Bran cereal with milk and coffee Lunch: [place] sandwich on whole grain bread Dinner: Chicken, [...] [facility])- Primary documented in this encounter
--- OUTSIDE RECORDS SUMMARY | 2024-05-31 07:30 | XMS_ITS | Encounter Summary ---
Author Organization [facility] Address [address] [place] [address] Care Team Providers Care Outsole Skiver Name Role Phone Unavailable Primary Care Provider Unavailabl e Encounter Details Date Type Department Care Team (Late st Contact Info) Description 07/28/2020 11:15 EST Phlebotomy Only [facility] 2 Phlebotomy [address] [place] [address] Sheet Manager, Acc Phlebotomy Encounter for sterilization Social History [...] Date of Assessment Author No 05/04/2020 0:28 Syvlia Alejandro RN * Because of a physical, [...] * (ABNORMAL) SCREENING GLUCOSE (07/28/2020 11:25 EST) [facility] Glucose, Screening 260(H) 70 - 100 mg/dL 07/28/2020 12:39 EST [facility] Comment:Elevated screening g lucose value greater than 180 mg/dl, please order follow up Hemoglobin A1C. Blood VENOUS BLOOD / Unknown Venipuncture / Unknown 07/28/2020 11:25 EST 07/28/2020 12:04 EST us Whit Rae MD CHEMISTRY & BLOOD GAS ORDERAB LES Final Result [facility] [address] [place] [address] documented in this encounter Visit Diagnoses Diagnosis Encounter for sterilization Sterilization documented in this encounter
--- OUTSIDE RECORDS SUMMARY | 2024-05-31 07:30 | XMS_ITS | Encounter Summary ---
Author Organization [facility] Address [address] [place] [address] Care Team Providers Care Kettle Skimmer Name Role Phone Unavailable Primary Care Provider [...]
--- OUTSIDE RECORDS SUMMARY | 2024-05-31 07:30 | XMS_ITS | Encounter Summary ---
Author Organization [facility] Address [address] [place] [address] Care Team Providers Care Steersman Name Role Phone Unavailable Primary Care Provider Unavailabl e Reason for Referral * ECONOMICS LECTURER (Routine) - Specialty Report Received Specialty Diagnoses / Procedures Referred By Kit t Referred To Contact Diagnoses of unknown anatomic location Procedures US OB FIRST TRIMESTER (LESS THAN 14 WEEKS) TRANSVAGINAL Charu Flynn MD Phone: tel: fax: Referral ID Status Reason Start Date Expiration Date V isits Requested Visits Authorized [id number] Specialty Report Received 06/20/2020 1 1 Reason for Visit * ECONOMICS LECTURER (Routine) - Specialty Report Received Specialty Diagnoses / Procedures Referred By Kit goode Referred To Contact Diagnoses of unknown anatomic location Procedures US OB FIRST TRIMESTER (LESS THAN 14 WEEKS) TRANSVAGINAL Charu Flynn MD Phone: tel: fax: Referral ID Status Reason Start Date Expiration Date V isits Requested Visits Authorized [id number] Specialty Report Received 06/20/2020 1 1 Encounter Details Date Type Department Care Team (Latest Contact Info) Description 06/25/2020 10:51 EST - 06/25/2020 23:59 EST Hospital Encounter [facility] OBGYN Services - [place] [address] [place], [place] [id number] of unknown anatomic location Discharge Disposition: Home [...] 8. View: Sufficient. Impression OB Transvaginal - 28737. 1. of unknown location with findings that [...] 8. View: Sufficient. Impression OB Transvaginal - 10288. 1. of unknown location with findings that [...] OF SERVICE: 06/25/2020 us Charu Flynn MD [facility] OB ORDERABLES Fin al Result documented in this encounter Visit Diagnoses Diagnosis of unknown anatomic location state, incidental documented in this encounter
--- OUTSIDE RECORDS SUMMARY | 2024-05-31 07:30 | XMS_ITS | Encounter Summary ---
Author Organization [facility] Address [address] [place] [address] Care Team Providers Care Cement Worker Name Role Phone Unavailable Primary Care Provider Unavailabl e Reason for Visit * Reason Onset Date Comments Appointment Related 07/30/2020 Encounter Details Date Type Department Care Team (Late st Contact Info) Description 07/30/2020 Telephone [facility] OBGYN Services - [facility] [address] [place], [place] [address] Nimisha Bay MD 2 [facility] Medical Office Building, [address] [place] [address] Appointment Related Social History Tobacco [...]
--- OUTSIDE RECORDS SUMMARY | 2024-05-31 07:30 | XMS_ITS | Encounter Summary ---
Author Organization [facility] Address [address] [place] [address] Care Team Providers Care Insurance Representative Name Role Phone Unavailable Primary Care Provider Unavailabl e Reason for Visit * Reason Onset Date Comments Surgery Scheduling 06/30/2020 Encounter Details Date Type Department Care Team (Late st Contact Info) Description 06/30/2020 Telephone [facility] OBGYN Services - [address] [id number] Charu Flynn MD [address] [facility], [address] [place] [address] Surgery Scheduling Social History Tobacco [...] Telephone Encounter - Mere Hanna - 06/30/2020 6576 EST Called pt and scheduled surgery for [...]
--- OUTSIDE RECORDS SUMMARY | 2024-05-31 07:30 | XMS_ITS | Encounter Summary ---
Author Organization [facility] Address [address] [place] [address] Care Team Providers Care Solar Systems Designer Name Role Phone Unavailable Primary Care Provider Unavailabl e Reason for Visit * Reason Onset Date Comments Other 06/26/2020 Encounter Details Date Type Department Care Team (Late st Contact Info) Description 06/26/2020 Telephone [facility] OBGYN Services - [facility] [address] [place] [address] Rosa Chang, MARCELO Other Social History Tobacco [...] now. Is aware of bleeding precautions. Has [employer] on-call number as well. Will route to beta book team to please advise further/follow up. * Telephone Encounter - Rosa Salazar RN - 06/26/2020 7296 EST Non-identified VM, left general message: nurse calling from [facility], calling to check in as [...] take you to the ER.Please call the [employer] nurses at [phone] when you receive this message. documented in this encounter Plan of Treatment Not on file documented as of this encounter Visit Diagnoses Not on filedocumented in this encounter
--- OUTSIDE RECORDS SUMMARY | 2024-05-31 07:30 | XMS_ITS | Encounter Summary ---
Author Organization [facility] Address [address] [place] [address] Care Team Providers Care Bung Dropper Name Role Phone Unavailable Primary Care Provider Unavailabl e Encounter Details Date Type Department Care Team (Late st Contact Info) Description 07/02/2020 Orders Only [facility] Endocrinology - [facility] [address] [place] [address] Sara Zafar, GUSTAVO [address] [facility] [address] [place] [address] Type 2 diabetes mellitus with hyperglycemia, with long-term current use of insulin ([facility]) (Primary Dx) Social History Tobacco [...] with long-term current use of insulin ([facility])- Primary documented in this encounter
--- OUTSIDE RECORDS SUMMARY | 2024-05-31 07:30 | XMS_ITS | Encounter Summary ---
Author Organization [facility] Address [address] [place] [address] Care Team Providers Care Sunglass Clip Attacher Name Role Phone Unavailable Primary Care Provider [...]
--- OUTSIDE RECORDS SUMMARY | 2024-05-31 07:30 | XMS_ITS | Encounter Summary ---
Author Organization [facility] Address [address] [place] [address] Care Team Providers Care Therapist Rrt Name Role Phone Unavailable Primary Care Provider [...]
--- OUTSIDE RECORDS SUMMARY | 2024-05-31 07:30 | XMS_ITS | Encounter Summary ---
Author Organization [facility] Address [address] [place] [address] Care Team Providers Care Truck Car And Bus Cleaner Name Role Phone Unavailable Primary Care Provider Unavailabl e Encounter Details Date Type Department Care Team (Late st Contact Info) Description 06/26/2020 Orders Only [facility] OBGYN Services - [facility] [address] [place], [place] [address] Marisa Tony MD [address] [place] [id number] Social History Tobacco Use Types Packs/Day Years [...] Notes * Marisa Tony MD - 06/26/2020 9068 EST Asked by Gy nurses to call [...] for tramadol 50mg. Instructed patient to call instructional media services technician number if sx worsen. Marisa Tony MD Senior Investment Manager PGY-1 Pager [phone] documented in this encounter Plan of Treatment Not on file documented as of this encounter Visit Diagnoses Not on filedocumented in this encounter
--- OUTSIDE RECORDS SUMMARY | 2024-05-31 07:30 | XMS_ITS | Encounter Summary ---
Author Organization [facility] Address [address] [place] [address] Care Team Providers Care Science Technician Name Role Phone Unavailable Primary Care [...] 6:47 EST - 08/04/2020 11:43 EST Emergency [facility] Emergency Department - [address] [address] Satinder Sol MD [address] [place] [address], [address] [place] [address] Non-intractable vomiting with nausea, unspecified [...] 08/04/2020 11:31 EST -Thank you for choosing [facility] for your medical care today. You were [...] mL 3 12/04/2019 2 lancets One Touch DelFlowboard or other brand compatible with lancing device [...] at the [facility] on 08/04/2020. This note was [...] for UTI. The patient presented to the [facility] ED endorsing nausea with emesis. Per the [...] p.o. intake of ice water without difficulty. [id number] ultrasound was performed and showed no evidence [...] 08/06/2020 10:3 0 EST us Scan 2 Mechanical Door Repairer PROCEDURE/MINOR SURGICAL OR DERABLES Final Result * POCT US ED ABDOMEN (08/04/2020 11:01 EST) Anatomical Region Laterality Modality Ultrasound 08/04/2020 11:0 5 EST Narrative 08/04/2020 19:06 EST [facility] - Ultrasound Exam Date: 08/04/2020 Exam Type: POCT US ED ABDOMEN Nutrition Services Aide: Asuncion Telles Attending: Satinder Sol MD Worksheet: [id number] (POCT US ED ABDOMEN) Exam Type: ?? [...] exam was performed and interpreted by the [facility] ED Staff Procedure Note Ismael Ji MD - 08/04/2020 [facility] - Ultrasound Exam Date: 08/04/2020 Exam Type: POCT US ED ABDOMEN Nutrition Services Aide: Asuncion Telles Attending: Satinder Sol MD Worksheet: [id number] (POCT US ED ABDOMEN) Exam Type: Clinically [...] exam was performed and interpreted by the [facility] ED Staff Asuncion Telles MD [facility] POCT US ORDERABLES Final Re sult * HOLD SST (08/04/2020 7:18 EST) Hold Hold 08/04/2020 8:32 EST [facility] Blood VENOUS BLOOD / Unknown 08/04/2020 7:18 EST 08/04/2020 7:18 EST us Satinder Sol MD LAB INFO SERVICE AND SUPPORT & PHONE RESULT Final Result Performing Organization Address [facility] de Phone Number [facility] [address] [place] [address] * QUANT BETA HCG, (08/04/2020 7:18 EST) Beta HCG Quant, <5 <5 mIU/ml 08/04/2020 8:58 EST [facility] Comment: NOTE: : Negative: Less [...] ORDERAB LES Final Result Performing Organization Address [facility] de Phone Number [facility] [address] [place] [address] * EKG 12-LEAD (08/04/2020 7:08 EST) 08/04/2020 7:08 EST Narrative [facility] EKG - 08/06/2020 10:26 EST ?[facility] Emergency ? Test Date: ?2020-08-04 Pat Name: ? CRISTY YOUNG ?Department: ?? ED ? Room: ? AC16 Gender: ? Female ? Case Resolution Specialist: ?? [id number] : ?1985 ? Requested By: GILDA SATINDER M Order Number: [id number] ? [place] MD: ?? LORI MARY MD ? Measurements Intervals ?[place] ? Rate: ? 56 ? P: ?4 [...] Note Lori Mary MD - 08/06/2020 [facility] Emergency Test Date: 2020-08-04 Pat Name: CRISTY LUO Department: ED Room: [facility] Gender: Female Case Resolution Specialist: [id number] : 1985 Requested By: GILDA Forman Order Number: [id number] [place] MD: LORI MARY MD Measurements Intervals [place] Rate: 56 P: 4 HI: 135 QRS: [...] Sol MD CARDIAC ECG ORDERABLES Final Result [facility] EKG * LIPASE (08/04/2020 7:02 EST) Lipase 131 <251 U/L 08/04/2020 8:55 EST [facility] Blood VENOUS BLOOD / Unknown Venipuncture / Unknown 08/04/2020 7:02 EST 08/04/2020 7:05 EST Asuncion Telles MD CHEMISTRY & BLOOD GAS ORDERABLE S Final Result [facility] [address] [place] [address] * (ABNORMAL) HEPATIC FUNCTION PANEL (ALB,ALK PHOS,ALT,AST,DBIL,TOT SAL,TOT PROT) (08/04/2020 7:02 EST) Total Protein 7.0 6.3 - 8.2 g/dL 08/04/2020 8:55 [facility] Albumin 4.1 3.4 - 4.9 g/dL 08/04/2020 8:55 [facility] Bilirubin, Total <0.5 <1.4 mg/dL 08/05/19 8:55 [facility] Conjugated Bilirubin 0.0 0.0 - 0.3 mg/dL 08/04/2020 8:55 [facility] Unconjugated Bilirubin 0.2 0.0 - 1.1 mg/dL 08/04/2020 8:55 [facility] Alkaline Phosphatase 99 38 - 126 U/L 08/04/2020 8:55 [facility] ALT 16 <35 U/L 08/04/2020 8:55 [facility] AST 62(H) 15 - 46 U/L 08/04/2020 8:55 [facility] Blood VENOUS BLOOD / Unknown Venipuncture / Unknown 08/04/2020 7:02 EST 08/04/2020 7:05 EST us Asuncion Telles MD CHEMISTRY & BLOOD GAS ORDERABLE S Final Result Performing Organization Address City/[facility]/ZIP Co de Phone Number [facility] [address] [place] [address] * LACTIC ACID (08/04/2020 7:02 EST) Lactic Acid 1.9 <=2.0 mmol/L 08/04/2020 7:31 EST [facility] Blood VENOUS BLOOD / Unknown Venipuncture / Unknown 08/04/2020 7:02 EST 08/04/2020 7:05 EST us Andrés Garcia MD CHEMISTRY & BLOOD GAS ORDERAB LES Final Result [facility] [address] [place] [address] * (ABNORMAL) SCREENING GLUCOSE (08/04/2020 7:02 EST) [facility] Glucose, Screening 325(H) 70 - 100 mg/dL 08/04/2020 7:34 EST [facility] Comment:Elevated screening g lucose value greater than 180 mg/dl, please order follow up Hemoglobin A1C. Blood VENOUS BLOOD / Unknown Venipuncture / Unknown 08/04/2020 7:02 EST 08/04/2020 7:05 EST Andrés Garcia MD CHEMISTRY & BLOOD GAS ORDERAB LES Final Result Performing Organization Address City/[facility]/ZIP Co de Phone Number [facility] [address] [place] [address] * MAGNESIUM (08/04/2020 7:02 EST) [facility] Magnesium 1.7 1.7 - 2.8 mg/dL 08/04/2020 7:31 EST [facility] Blood VENOUS BLOOD / Unknown Venipuncture / Unknown 08/04/2020 7:02 EST 08/04/2020 7:05 EST Andrés Garcia MD CHEMISTRY & BLOOD GAS ORDERAB LES Final Result Performing Organization Address City/[facility]/ZIP Co de Phone Number [facility] [address] [place] [address] * TROPONIN I (08/04/2020 7:02 EST) [facility] Troponin I (ng/mL) <0.034 <0.034 ng/mL 08/04/2020 7:43 EST [facility] Blood VENOUS BLOOD / Unknown Venipuncture / Unknown 08/04/2020 7:02 EST 08/04/2020 7:05 EST Narrative [facility] - 08/04/2020 7:43 EST The results of this assay can be falsely lowered due to the consumption of Biotin. us Andrés Garcia MD CHEMISTRY & BLOOD GAS ORDERAB LES Final Result [facility] [address] [place] [address] * ELECTROLYTES (08/04/2020 7:02 EST) Sodium 138 136 - 145 mEq/L 08/04/2020 7:31 [facility] Potassium 4.1 3.5 - 5.0 mEq/L 08/04/2020 7:31 [facility] Chloride 103 96 - 110 mEq/L 08/04/2020 7:31 [facility] CO2 Total 24 22 - 32 mEq/L 08/04/2020 7:31 [facility] Blood VENOUS BLOOD / Unknown Venipuncture / Unknown 08/04/2020 7:02 EST 08/04/2020 7:05 EST Andrés Garcia MD CHEMISTRY & BLOOD GAS ORDERAB LES Final Result Performing Organization Address [facility]/ZIP Co de Phone Number [facility] [address] [place] [address] * CREATININE (08/04/2020 7:02 EST) Creatinine 0.55 0.52 - 1.04 mg/dL 08/04/2020 7:31 [facility] eGFR 122 >60 mL/min/1.7 3m2 08/04/2020 7:31 [facility] Comment:eGFR calculated gil curtis CKD-EPI equation for non- Americans. Multiply eGFR by 1.16 for patients. Blood VENOUS BLOOD / Unknown Venipuncture / Unknown 08/04/2020 7:02 EST 08/04/2020 7:05 EST Andrés Garcia MD CHEMISTRY & BLOOD GAS ORDERAB LES Final Result Performing Organization Address City/[facility]/ZIP Co de Phone Number [facility] [address] [place] [address] * BUN (08/04/2020 7:02 EST) BUN 12 10 - 26 mg/dL 08/04/2020 7:31 [facility] Blood VENOUS BLOOD / Unknown Venipuncture / Unknown 08/04/2020 7:02 EST 08/04/2020 7:05 EST us Andrés Garcia MD CHEMISTRY & BLOOD GAS ORDERAB LES Final Result [facility] [address] [place] [address] * (ABNORMAL) COMPLETE BLOOD COUNT AND DIFFERENTIAL (08/04/2020 7:02 EST) WBC 16.23(H) 4.00 - 12.40 K/cmm 08/04/2020 7:23 [facility] RBC 4.57 3.86 - 5.04 M/cmm 08/04/2020 7:23 [facility] Hemoglobin 14.1 11.6 - 15.2 gm/dL 08/04/2020 7:23 [facility] HCT 39.2 34.9 - 44.4 % 08/04/2020 7:23 [facility] MCV 86 81 - 98 fl 08/04/2020 7:23 [facility] MCH 30.9 26.7 - 33.3 pg 08/04/2020 7:23 [facility] MCHC 36.0(H) 32.1 - 35.9 gm/dL 08/04/2020 7:23 [facility] RDW-CV 12.1 <14.7 % 08/04/2020 7:23 [facility] RDW-SD 37.6 <50.4 fl 08/04/2020 7:23 [facility] PLT 395(H) 141 - 377 K/cmm 08/04/2020 7:23 [facility] MPV 10.0 9.5 - 12.7 fl 08/04/2020 7:23 [facility] % Neutrophils 70.8 % 08/04/2020 7:23 [facility] % Lymphocytes 20.3 % 08/04/2020 7:23 [facility] % Monocytes 6.0 % 08/04/2020 7:23 [facility] % Eosinophils 1.8 % 08/04/2020 7:23 [facility] % Basophils 0.5 % 08/04/2020 7:23 [facility] % Immature Grans 0.6 % 08/05/19 7:23 [facility] Absolute Neutrophils 11.51(H) 2.20 - 8.85 K/cmm 08/04/2020 7:23 [facility] Absolute Lymphocytes 3.29 1.09 - 3.30 K/cmm 08/04/2020 7:23 [facility] Absolute Monocytes 0.97(H) 0.10 - 0.80 K/cmm 08/04/2020 7:23 [facility] Absolute Eosinophils 0.29 0.03 - 0.61 K/cmm 08/04/2020 7:23 [facility] ABS Basophils 0.08 0.01 - 0.11 K/cmm 08/04/2020 7:23 [facility] Absolute Immature Grans 0.09(H) 0.00 - 0.06 K/cmm 08/04/2020 7:23 [facility] Type of Differential: Auto 08/04/2020 7:23 [facility] Blood VENOUS BLOOD / Unknown Venipuncture / Unknown 08/04/2020 7:02 EST 08/04/2020 7:05 EST us Andrés Garcia MD PACKAGES & DNA PROBE ORDERABL ES Final Result [facility] [address] [place] [address] * (ABNORMAL) POCT GLUCOSE, INTERFACED (08/04/2020 6:59 EST) Glucose, POC 328(H) 70 - 100 mg/dL 08/04/2020 7:02 EST [facility]ORATORY renal medicine specialist ID [id number] 08/04/2020 7:02 EST [facility] HN LAB POC COMMENT (GLUCOSE) Test Performed by Nursing Services 08/04/2020 7:02 EST [facility] Blood CAPILLARY BLOOD / Unknown 08/04/2020 6:59 EST 08/04/2020 7:02 EST us Provider Unknown MD POINT OF CARE TEST ORDERABLE S Final Result [facility] [address] [place] [address] documented in this encounter Visit Diagnoses Diagnosis [...]
--- OUTSIDE RECORDS SUMMARY | 2024-05-31 07:30 | XMS_ITS | Encounter Summary ---
Author Organization [facility] Address [address] [place] [address] Care Team Providers Care Intelligence Chief Name Role Phone Unavailable Primary Care Provider Unavailabl e Reason for Visit * Reason Onset Date Comments Follow-up 06/27/2020 Encounter Details Date Type Department Care Team (Late st Contact Info) Description 06/27/2020 Telephone [facility] OBGYN Services - [facility] [address] [place] [address] Susana Tomlinson, RN Follow-up Social History Tobacco [...]
--- OUTSIDE RECORDS SUMMARY | 2024-05-31 07:30 | XMS_ITS | Encounter Summary ---
Author Organization [facility] Address [address] [place] [address] Care Team Providers Care Radiology Transcriptionist Name Role Phone Unavailable Primary Care Provider Unavailabl e Reason for Visit * Reason Comments Emesis Seen tuesday for n/v/ d back tonight for continued n/v/d, her pcp recommended she come in for reeval and possible scan. Pt reports diffuse abdominal pain. Encounter Details Date Type Department Care Team (Late st Contact Info) Description 08/06/2020 3:57 EST - 08/06/2020 8:59 EST Emergency [facility] Emergency Department - [facility] [address] [place] [address] Kylah Whitaker PA-C [address] [facility], [address] [place] [phone] Jeremiah Hein PA-C [address] [place] [phone] Non-intractable vomiting with nausea, unspecified vomiting type [...] through Care Everywhere. * Nausea and Vomiting (Beninese) documented in this encounter Medications at Time [...] Means Destination Comment s Home or Self Correction driving. documented in this encounter ED Notes [...] Abnormality Status --------- ------ POCT URINE DIPSTICK, CLI...[[id number]] POCT CSN BARCODE URINE D...[[id number]] Please view results for these tests on the individual orders. POCT TEST, CLINITEK ORDER Narrative: The following orders were created for panel order POCT TEST, CLINITEK ORDER. Procedure Abnormality Status --------- ------ POCT TEST, CLI...[[id number]] POCT CSN BARCODE URINE P...[[id number]] Please view results for these tests on [...] at the [facility] on 08/06/2020 Scribe attestation: This documentation is [...] No acute fracture or suspicious osseous lesion. Acrylic Fabricator: No additional pathology identified. Procedure Note Broderick [...] No acute fracture or suspicious osseous lesion. Acrylic Fabricator: No additional pathology identified. IMPRESSION 1. No acute abnormality identified in the abdomen or pelvis. 2. Small nonobstructing left intrarenal calculus. 3. Small hiatal hernia. I have personally reviewed the images and the above interpretation andagree with the findings. Kylah DAWSON-Shiva IMG CT ORDERABLES Final Result * LACTIC ACID (08/06/2020 5:06 EST) Lactic Acid 1.5 <=2.0 mmol/L 08/06/2020 5:29 EST [facility] Blood VENOUS BLOOD / Unknown Venipuncture / Unknown 08/06/2020 5:06 EST 08/06/2020 5:17 EST Kylah DAWSON-C CHEMISTRY & BLOOD GAS ORDERABLES Final Result Performing Organization Address [facility] Co de Phone Number [facility] [address] [place] [address] * LIPASE (08/06/2020 4:13 EST) Lipase 141 <251 U/L 08/06/2020 5:00 EST [facility] Blood VENOUS BLOOD / Unknown Venipuncture / Unknown 08/06/2020 4:13 EST 08/06/2020 4:19 EST Kylah DAWSON-C CHEMISTRY & BLOOD GAS ORDERABLES Final Result Performing Organization Address City/[facility] Co de Phone Number [facility] [address] [place] [address] * (ABNORMAL) COMPREHENSIVE METABOLIC PANEL (CMP) (08/06/2020 4:13 EST) Sodium 139 136 - 145 mEq/L 08/06/2020 5:00 [facility] Potassium 3.4(L) 3.5 - 5.0 mEq/L 08/06/2020 5:00 [facility] Comment: NOTE: Interpret with caution. Prolonged sample storage may alter the result. Chloride 99 96 - 110 mEq/L 08/06/2020 5:00 [facility] CO2 Total 25 22 - 32 mEq/L 08/06/2020 5:00 [facility] Comment: NOTE: Interpret with caution. Prolonged sample storage may alter the result. Glucose 255(H) 70 - 100 mg/dL 08/06/2020 5:00 [facility] BUN 12 10 - 26 mg/dL 08/06/2020 5:00 [facility] Creatinine 0.52 0.52 - 1.04 mg/dL 08/06/2020 5:00 [facility] eGFR 124 >60 mL/min/1.7 3m2 08/06/2020 5:00 [facility] Comment:eGFR calculated gil curtis CKD-EPI equation for non- Americans. Multiply eGFR by 1.16 for patients. Total Protein 7.0 6.3 - 8.2 g/dL 08/06/2020 5:00 [facility] Albumin 4.2 3.4 - 4.9 g/dL 08/06/2020 5:00 [facility] Alkaline Phosphatase 92 38 - 126 U/L 08/06/2020 5:00 [facility] AST 29 15 - 46 U/L 08/06/2020 5:00 [facility] ALT 23 <35 U/L 08/06/2020 5:00 [facility] Bilirubin, Total 0.6 <1.4 mg/dL 08/07/19 5:00 [facility] Calcium 9.4 8.5 - 10.5 mg/dL 08/06/2020 5:00 [facility] Calculated Calcium 9.2 8.5 - 10.5 mg/dL 08/06/2020 5:00 [facility] Blood VENOUS BLOOD / Unknown Venipuncture / Unknown 08/06/2020 4:13 EST 08/06/2020 4:19 EST Kylah Whitaker PA-C CHEMISTRY & BLOOD GAS ORDERABLES Final Result [facility] [address] [place] [address] * (ABNORMAL) COMPLETE BLOOD COUNT AND DIFFERENTIAL (08/06/2020 4:13 EST) WBC 13.81(H) 4.00 - 12.40 K/cmm 08/06/2020 5:13 [facility] RBC 4.57 3.86 - 5.04 M/cmm 08/06/2020 5:13 [facility] Hemoglobin 14.0 11.6 - 15.2 gm/dL 08/06/2020 5:13 [facility] HCT 39.4 34.9 - 44.4 % 08/06/2020 5:13 [facility] MCV 86 81 - 98 fl 08/06/2020 5:13 [facility] MCH 30.6 26.7 - 33.3 pg 08/06/2020 5:13 [facility] MCHC 35.5 32.1 - 35.9 gm/dL 08/06/2020 5:13 [facility] RDW-CV 12.1 <14.7 % 08/06/2020 5:13 [facility] RDW-SD 38.3 <50.4 fl 08/06/2020 5:13 [facility] PLT 427(H) 141 - 377 K/cmm 08/06/2020 5:13 [facility] MPV 9.9 9.5 - 12.7 fl 08/06/2020 5:13 [facility] % Neutrophils 51.5 % 08/06/2020 5:13 [facility] % Lymphocytes 36.1 % 08/06/2020 5:13 [facility] % Monocytes 9.1 % 08/06/2020 5:13 [facility] % Eosinophils 2.2 % 08/06/2020 5:13 [facility] % Basophils 0.7 % 08/06/2020 5:13 [facility] % Immature Grans 0.4 % 08/07/19 5:13 [facility] Absolute Neutrophils 7.11 2.20 - 8.85 K/cmm 08/06/2020 5:13 [facility] Absolute Lymphocytes 4.98(H) 1.09 - 3.30 K/cmm 08/06/2020 5:13 [facility] Absolute Monocytes 1.26(H) 0.10 - 0.80 K/cmm 08/06/2020 5:13 [facility] Absolute Eosinophils 0.31 0.03 - 0.61 K/cmm 08/06/2020 5:13 [facility] ABS Basophils 0.10 0.01 - 0.11 K/cmm 08/06/2020 5:13 [facility] Absolute Immature Grans 0.05 0.00 - 0.06 K/cmm 08/06/2020 5:13 [facility] Type of Differential: Auto 08/06/2020 5:13 [facility] Blood VENOUS BLOOD / Unknown Venipuncture / Unknown 08/06/2020 4:13 EST 08/06/2020 4:19 EST Kylah Whitaker PA-C PACKAGES & DNA PROBE ORDERABLES Final Result Performing Organization Address City/[facility] Co de Phone Number [facility] [address] [place] [address] * HOLD SST (08/06/2020 4:13 EST) Hold Hold 08/06/2020 5:32 EST [facility] Blood VENOUS BLOOD / Unknown Venipuncture / Unknown 08/06/2020 4:13 EST 08/06/2020 4:19 EST Kylah Whitaker PA-C LAB INFO SERVICE AND SUPPORT & P TAZ RESULT Final Result Performing Organization Address City/[facility]/ZIP Co de Phone Number [facility] [address] [place] [address] * HOLD LAVENDER TOP (08/06/2020 4:13 EST) Hold Hold 08/06/2020 5:32 EST [facility] Blood VENOUS BLOOD / Unknown Venipuncture / Unknown 08/06/2020 4:13 EST 08/06/2020 4:19 EST us Kylah Whitaker PA-C LAB INFO SERVICE AND SUPPORT & P TAZ RESULT Final Result [facility] [address] [place] [address] * HOLD GREEN TOP (08/06/2020 4:13 EST) Hold Hold 08/06/2020 5:32 EST [facility] Blood VENOUS BLOOD / Unknown Venipuncture / Unknown 08/06/2020 4:13 EST 08/06/2020 4:19 EST us Kylah Whitaker PA-C LAB INFO SERVICE AND SUPPORT & P TAZ RESULT Final Result Performing Organization Address City/[facility]/ZIP Co de Phone Number [facility] [address] [place] [address] * HOLD BLUE TOP (08/06/2020 4:13 EST) Hold Hold 08/06/2020 5:32 EST [facility] Blood VENOUS BLOOD / Unknown Venipuncture / Unknown 08/06/2020 4:13 EST 08/06/2020 4:19 EST us Kylah Sarayow PA-C LAB INFO SERVICE AND SUPPORT & P TAZ RESULT Final Result Performing Organization Address City/[facility]/ZIP Co de Phone Number [facility] [address] [place] [address] documented in this encounter Visit Diagnoses Diagnosis [...]
--- OUTSIDE RECORDS SUMMARY | 2024-05-31 07:30 | XMS_ITS | Encounter Summary ---
Author Organization [facility] Address [address] [place] [address] Care Team Providers Care Harvest Worker Field Crop Name Role Phone Unavailable Primary Care Provider Unavailabl e Encounter Details Date Type Department Care Team (Late st Contact Info) Description 06/25/2020 11:45 EST Phlebotomy Only [facility] ED Center 2 Phlebotomy [address] [place] [address] Facilities Management Executive, Acc Phlebotomy of unknown anatomic location Social [...] Quant, 49(H) <5 mIU/ml 06/25/2020 12:28 EST [facility] Comment: NOTE: : Negative: [...] [facility] [address] [place] [address] documented in this encounter Visit Diagnoses Diagnosis of unknown anatomic location state, incidental documented in this encounter
--- OUTSIDE RECORDS SUMMARY | 2024-05-31 07:30 | XMS_ITS | Encounter Summary ---
Author Organization [facility] Address [address] [place] [address] Care Team Providers Care Robotics Engineer Name Role Phone Unavailable Primary Care Provider Unavailabl e Reason for Visit * Reason Comments Telemedicine Video Visit Encounter Details Date Type Department Care Team (Late st Contact Info) Description 07/02/2020 11:30 EST Telemedicine [facility] Infectious Disease - [address] [id number] Mushtaq Light, DO 111 [facility], Level 5 [place] [address] Osteomyelitis of left foot, unspecified [...] Bone biopsy was polymicrobial (MSSA,??GBS,??S.??anginosus, prevotella) and??MRI [id number] distal phalanx osteomyelitis with possible early proximal [...] ([facility]) ? A1c 10.3 on 11/28/2019 ??? [...] FOREIGN BODIES:??None ?? SOCIAL HISTORY:? 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 Attends sabianism service: Not on file ? Active member [...] few strep anginosus, moderate prevotella 05/03 covid-19 CONFERENCE SPECIALIST swab: negative 05/04 blood cultures:06/09 bottles [...] [facility]IN [facility])- Primary documented in this encounter
--- OUTSIDE RECORDS SUMMARY | 2024-05-31 07:30 | XMS_ITS | Encounter Summary ---
Author Organization [facility] Address [address] [place] [address] Care Team Providers Care Supervising Chef Name Role Phone Unavailable Primary Care Provider Unavailabl e Reason for Visit * Reason Comments Foot Problem Encounter Details Date Type Department Care Team (Latest Contact Info) Description 07/02/2020 14:30 EST Office Visit [facility] Foot & Ankle Program - [address] [address] Elza Navarro DPM [address] [place] [phone] Osteomyelitis of left foot, unspecified type ([facility]) (Primary Dx); Type 2 diabetes mellitus with diabetic polyneuropathy, with long-term current use of insulin ([facility]) Social History [...] Date of Assessment Author No 05/04/2020 0:28 Slyvia Alejandro RN * Are you blind or [...] of left foot, unspecified type ([facility]) 2. Type 2 diabetes mellitus with diabetic polyneuropathy, with long-term current use of insulin ([facility]) No orders of the defined types were [...] with speech recognition software or keyboard manager database administration techniques. Minor irregularities or keyboarding misprints may be present documented in this encounter Plan of Treatment Not on file documented as of this encounter Visit Diagnoses Diagnosis Osteomyelitis of left foot, unspecified type ([facility])- Primary Type 2 diabetes mellitus with diabetic polyneuropathy, with long-term current use of insulin ([facility]) documented in this encounter
--- OUTSIDE RECORDS SUMMARY | 2024-05-31 07:30 | XMS_ITS | Encounter Summary ---
Author Organization [facility] Address [address] [place] [address] Care Team Providers Care Operations Executive Name Role Phone Unavailable Primary Care Provider Unavailabl e Reason for Visit * Reason Onset Date Comments Miscarriage 06/26/2020 Nausea 06/26/2020 Abdominal Pain 06/26/2020 Encounter Details Date Type Department Care Team (Late st Contact Info) Description 06/26/2020 Telephone [facility] Adult Primary Care [address] [address] Tonja Alejandro PA-C [address] [place] [address] [place] [phone] Miscarriage; Nausea; Abdominal Pain Social History [...] Encounter - Tonja Alejandro PA-C - 06/26/2020 3217 EST Spoke with Stella. She has had [...] in bleeding. I encouraged her to call [facility] office back for further recommendations. She really would like to try to stay out of the ER department as they have not been helpful the last time they went there. I did explain to her there can be serious risk with miscarriages with increase pain and bleeding. She understands this and will call [facility]. * Telephone Encounter - Jesi Lua RN - 06/26/2020 1537 EST Spoke with . He states fire claims adjuster got to wifes phone and told her to go to ER. He states he is not bringing her back to the ER. He states she is not comfortable bringing her there and having them sitthere for 6hrs like they did the other day and them not do anything. He is not happy with [facility] office and states that is why he called us. Will forward message to Tonja DAWSON * Telephone Encounter - Tonja Alejandro PA-C - 06/26/2020 1525 EST Looks like someone from [employer] tried calling her. Patient needs to return phone call to them. * Telephone Encounter - Eryn Navarrete RN - 06/26/2020 1517 EST Reviewed response with patient's . He is still concerned about her pain management Will review with provider. * Telephone Encounter - Tonja Alejandro PA-C - 06/26/2020 1435 EST Please let patient know that I called over to her KNIFE OPERATOR office/attending director television news. The doctor had put in a message [...] 1346 EST Has she talked with her clothes designer? im concerned regarding her symptoms especially if she has a retained clot. I also worry about possible hemorrhage ( if she is severely bleeding, any increased bleedingsince yesterday? ). Has the pain changed since yesterday? Any fevers? I really think she needs to let fire claims adjuster know whats going on today . I [...] provider yesterday and things were fine) Uses [employer] in [place]. * Telephone Encounter - Dayana Cosme - [...]
--- OUTSIDE RECORDS SUMMARY | 2024-05-31 07:30 | XMS_ITS | Encounter Summary ---
Author Organization [facility] Address [address] [place] [address] Care Team Providers Care Shipping Packer Name Role Phone Unavailable Primary Care Provider Unavailabl e Reason for Visit * Reason Onset Date Comments COVID-19 06/30/2020 Encounter Details Date Type Department Care Team (Late st Contact Info) Description 06/30/2020 Orders Only [facility] OBGYN Services - [address] [address] Susana Tomlinson, RN Sterilization (Primary Dx) Social [...]
--- OUTSIDE RECORDS SUMMARY | 2024-05-31 07:30 | XMS_ITS | Encounter Summary ---
Author Organization [facility] Address [address] [place] [address] Care Team Providers Care Communications Instructor Name Role Phone Unavailable Primary Care Provider Unavailabl e Encounter Details Date Type Department Care Team (Late st Contact Info) Description 06/26/2020 Documentation Visit [facility] Obstetrics & Midwifery - [address] [phone] Nohemy Sales MD [address] [facility], [address] [place] [address] Social History Tobacco Use Types [...] 1 pad/hr and 10/10 pain. Will have CONCRETE FLOOR INSTALLER RN call today Nohemy Sales MD documented in this encounter Plan of Treatment Not on file documented as of this encounter Visit Diagnoses Not on filedocumented in this encounter
--- OUTSIDE RECORDS SUMMARY | 2024-05-31 07:30 | XMS_ITS | Encounter Summary ---
Author Organization [facility] Address [address] [place] [address] Care Team Providers Care Civilian Technician Name Role Phone Unavailable Primary Care Provider Unavailabl e Reason for Visit * Reason Comments Follow-up Encounter Details Date Type Department Care Team (Latest Contact Info) Description 08/01/2020 15:00 EST Office Visit [facility] Adult Primary Care - [address] [phone] Tonja Alejandro PA-C [address] [place] [address] [place] [phone] Musculoskeletal pain (Primary Dx); Type 2 diabetes mellitus with hyperosmolarity without coma, with long-term current use of insulin ([facility]); Neuropathy; Depression, unspecified depression type; Chronic bilateral [...] miscarriage. She has been following up with DEMONSTRATOR SALES and is ultimately scheduled for hysterectomy. This [...] healthy eating -Continue to follow-up with a internet ecommerce specialist History of multiple miscarriages -Continue follow-up with BONDED STRAND OPERATOR -Plan for hysterectomy next month Left [...] patient is interested in seeing a social insurance specialist. Will order this. Chronic back pain -Start with x-rays of thoracic and lumbar spine. -Consider MRI of thoracic spine/lumbar spine due to radicular pain Will call patient on Tuesday for further insulin instructions. Tonja [facility]jandro PA-C [facility]01[facility]2020 16:34 I spent a total [...] coma, with long-term current use of insulin ([facility]) Neuropathy Mononeuritis of unspecified site [...]
--- OUTSIDE RECORDS SUMMARY | 2024-05-31 07:30 | XMS_ITS | Encounter Summary ---
Author Organization [facility] Address [address] [place] [address] Care Team Providers Care Supervisor Maintenance Name Role Phone Unavailable Primary Care Provider Unavailabl e Reason for Visit * Reason Comments Foot Problem Encounter Details Date Type Department Care Team (Latest Contact Info) Description 06/25/2020 15:00 EST Post-op Visit [facility] Foot & Ankle Program - [address] [address] Elza Navarro [address] [phone] Osteomyelitis of left foot, unspecified type ([facility]) (Primary Dx); Type 2 diabetes mellitus with diabetic polyneuropathy, with long-term current use of insulin ([facility]) Social History Tobacco Use Types Packs/Day [...] use of insulin ([facility]) No orders of the defined types were [...] speech recognition software or keyboard manager data center techniques. Minor irregularities or keyboarding misprints may be present documented in this encounter Plan of Treatment Not on file documented as of this encounter Visit Diagnoses Diagnosis Osteomyelitis of left foot, unspecified type ([facility])- Primary Type 2 diabetes mellitus with diabetic polyneuropathy, with long-term current use of insulin ([facility]) documented in this encounter
--- OUTSIDE RECORDS SUMMARY | 2024-05-31 07:30 | XMS_ITS | Encounter Summary ---
Author Organization [facility] Address [address] [place] [address] Care Team Providers Care Top Dyeing Machine Loader Name Role Phone Unavailable Primary Care Provider Unavailabl e Reason for Visit * Reason Onset Date Comments Follow-up 06/25/2020 Encounter Details Date Type Department Care Team (Late st Contact Info) Description 06/25/2020 Telephone [facility] OBGYN Services - [facility] [address] [place], [place] [id number] Susana Tomlinson, RN Follow-up Social History Tobacco [...]
--- OUTSIDE RECORDS SUMMARY | 2024-05-31 07:30 | XMS_ITS | Encounter Summary ---
Author Organization [facility] Address [address] [place] [address] Care Team Providers Care Rope Machine Setter Name Role Phone Unavailable Primary Care Provider Unavailabl e Reason for Visit * Reason Comments Pre-op Exam Encounter Details Date Type Department Care Team (Late st Contact Info) Description 07/28/2020 10:30 EST Office Visit [facility] OBGYN Services - [facility] [address] [place] [address] Fernanda Egan, DO [address] [place] [phone] Encounter for sterilization (Primary Dx) Social History [...] of Assessment Author No 05/04/2020 0:28 Sylvia Alejadnro RN * Do you have serious difficulty walking or climbing stairs? (5 years old or older) Answer Date of Assessment Author No 05/04/2020 0:28 Sylvia Aljeandro RN * Do you have difficulty dressing [...] Egan D.O. 07/28/2020 11:05 Obstetrics/Gynecology PGY-1 Pager #[phone] * Whit Rae MD - 07/28/2020 1030 [...] 70 - 100 mg/dL 07/28/2020 12:39 EST [facility] Comment:Elevated screening g lucose value greater than 180 mg/dl, please order follow up Hemoglobin A1C. Blood VENOUS BLOOD / Unknown Venipuncture / Unknown 07/28/2020 11:25 EST 07/28/2020 12:04 EST Whit Rae MD CHEMISTRY & BLOOD GAS ORDERAB LES Final Result [facility] [address] [place] [address] * (ABNORMAL) HEMOGLOBIN A1C (07/28/2020 11:25 EST) Hemoglobin A1c 9.7(H) <5.7 % 07/28/2020 14:20 EST [facility] Comment: Glycemic Status References: [...] Est Avg Glucose 232 mg/dL 14:20 EST [facility] Comment:The eAG represents t he A1c result expressed as average glucose in mg/dL. Blood VENOUS BLOOD / Unknown Venipuncture / Unknown 07/28/2020 11:25 EST 07/28/2020 11:50 EST us Whit Rae MD CHEMISTRY & BLOOD GAS ORDERAB LES Final Result Performing Organization Address City/State/[facility] Co de Phone Number [facility] [address] [place] [phone] documented in this encounter Visit Diagnoses Diagnosis Encounter for sterilization- Primary Sterilization documented in this encounter
--- OUTSIDE RECORDS SUMMARY | 2024-05-31 07:30 | XMS_ITS | Encounter Summary ---
Author Organization [facility] Address [address] [place] [address] Care Team Providers Care Music Copyist Name Role Phone Unavailable Primary Care Provider [...]
--- OUTSIDE RECORDS SUMMARY | 2024-05-31 07:30 | XMS_ITS | Encounter Summary ---
Author Organization [facility] Address [address] [place] [address] Care Team Providers Care Drug Abuse Resistance Education Officer Name Role Phone Unavailable Primary Care Provider Unavailabl e Reason for Visit * Reason Onset Date Comments No Show 06/27/2020 Encounter Details Date Type Department Care Team (Late st Contact Info) Description 06/27/2020 Telephone [facility] Adult Primary Care - [address] [address] Tonja Alejandro PA-C [address] [place] [address] [place] [phone] No Show Social History Tobacco Use [...]
--- OUTSIDE RECORDS SUMMARY | 2024-05-31 07:31 | XMS_ITS | Encounter Summary ---
Author Organization [facility] Address [address] [place] [address] Care Team Providers Care Lead Assembler Name Role Phone Unavailable Primary Care Provider Unavailabl e Reason for Visit * Reason Onset Date Comments Other 06/13/2020 Encounter Details Date Type Department Care Team (Late st Contact Info) Description 06/13/2020 Telephone [facility] Foot & Ankle Program - [address] [address] Elza Navarro [address] [place] [address] Other Social History Tobacco Use [...] told to arrive @1:30 on 06.16.20 @ [facility], nothing to eat or drink after [...]
--- OUTSIDE RECORDS SUMMARY | 2024-05-31 07:31 | XMS_ITS | Encounter Summary ---
Author Organization [facility] Address [address] [place] [address] Care Team Providers Care Domestic Freight Forwarder Name Role Phone Unavailable Primary Care Provider Unavailabl e Reason for Referral * CORPORATION OFFICER (Routine) - Specialty Report Received Specialty Diagnoses / Procedures Referred By Contac t Referred To Contact Diagnoses of unknown anatomic location Procedures OB FIRST TRIMESTER (LESS THAN 14 WEEKS) TRANSVAGINAL David Martínez MD Phone: tel: fax: Referral ID Status Reason Start Date Expiration Date V isits Requested Visits Authorized [id number] Specialty Report Received 06/19/2020 1 1 Reason for Visit * Reason Onset Date Comments 06/18/2020 Encounter Details Date Type Department Care Team (Late st Contact Info) Description 06/18/2020 Telephone [facility] OBGYN Services - [address] [address] Nohemy Sales MD 111 [facility], Level 4 [place] [address] Social History Tobacco Use Types [...] Tuesday - heavier on Tuesday and Tuesday, expeller operator yesterday and today, and period like pressure [...] with Dr. Almonte - ideally should be HORSE RACE STARTER provider managing at this time. Dr. Martínez [...] (Refer to if can???t remember)? MFM on hermon, diabetic. Reason for Call as described by [...] for us to reach you back at? [phone] What time of day is the best [...] & BLOOD GAS ORD ERABLES Final Result [facility] [address] [place] [address] * US OB FIRST TRIMESTER (LESS THAN [...] Sufficient. Impression 1st Trimester OB scan ,transvaginal +[id number] There is no visualized gestational sac either [...] The adnexa appear normal. Follow-up Per the HORSE RACE STARTER service. Comment ========= Results discussed w/patient. DATE [...] Sufficient. Impression 1st Trimester OB scan ,transvaginal +[id number] There is no visualized gestational sac either [...] The adnexa appear normal. Follow-up Per the HORSE RACE STARTER service. Comment ========= Results discussed w/patient. DATE [...] Sufficient. Impression 1st Trimester OB scan ,transvaginal +[id number] There is no visualized gestational sac either [...] The adnexa appear normal. Follow-up Per the HORSE RACE STARTER service. Comment ========= Results discussed w/patient. DATE OF SERVICE: 06/20/2020 David Martínez MD [facility] OB ORDERABLES Edit ed Result - Final [...] & BLOOD GAS ORD ERABLES Final Result [facility] [address] [place] [address] documented in this encounter Visit Diagnoses Diagnosis of unknown anatomic location- Primary state, incidental of unknown anatomic location state, incidental documented in this encounter
--- OUTSIDE RECORDS SUMMARY | 2024-05-31 07:31 | XMS_ITS | Encounter Summary ---
Author Organization [facility] Address [address] [place] [address] Care Team Providers Care Facial Operator Name Role Phone Unavailable Primary Care Provider Unavailabl e Encounter Details Date Type Department Care Team (Late st Contact Info) Description 06/21/2020 9:15 EST Phlebotomy Only [facility] ED Center 2 Phlebotomy [address] [place] [address] Cupola Operator Insulation, Acc Phlebotomy of unknown anatomic location Social [...] Quant, 152(H) <5 mIU/ml 06/21/2020 11:01 EST [facility] Comment: NOTE: : Negative: Less [...] & BLOOD GAS ORD ERABLES Final Result [facility] [address] [place] [address] documented in this encounter Visit Diagnoses Diagnosis of unknown anatomic location state, incidental documented in this encounter
--- OUTSIDE RECORDS SUMMARY | 2024-05-31 07:31 | XMS_ITS | Encounter Summary ---
Author Organization [facility] Address [address] [place] [address] Care Team Providers Care Bottomer Operator Name Role Phone Unavailable Primary Care Provider Unavailabl e Reason for Visit * Reason Onset Date Comments Other 06/17/2020 Encounter Details Date Type Department Care Team (Late st Contact Info) Description 06/17/2020 Telephone [facility] Foot & Ankle Program - [address] [address] Elza Navarro [address] [place] [address] Other Social History Tobacco Use [...]
--- OUTSIDE RECORDS SUMMARY | 2024-05-31 07:31 | XMS_ITS | Encounter Summary ---
Author Organization [facility] Address [address] [place] [address] Care Team Providers Care Skiff Operator Name Role Phone Unavailable Primary Care [...]
--- OUTSIDE RECORDS SUMMARY | 2024-05-31 07:31 | XMS_ITS | Encounter Summary ---
Author Organization [facility] Address [address] [place] [address] Care Team Providers Care Section Cutter Name Role Phone Unavailable Primary Care Provider Unavailabl e Reason for Visit * Reason Onset Date Comments Pre-procedure 06/05/2020 Encounter Details Date Type Department Care Team (Latest Contact Info) Description 06/05/2020 Prep for Procedure [facility] Foot & Ankle Program - [address] [id number] Elza Navarro DPM [address] [place] [phone] Osteomyelitis of left foot, unspecified [...] Diagnosis Osteomyelitis of left foot, unspecified type ([facility])- Primary documented in this encounter
--- OUTSIDE RECORDS SUMMARY | 2024-05-31 07:31 | XMS_ITS | Encounter Summary ---
Author Organization [facility] Address [address] [place] [address] Care Team Providers Care Consulting Systems Engineer Name Role Phone Unavailable Primary Care Provider Unavailabl e Reason for Visit * Reason Comments Telemedicine Video Visit Encounter Details Date Type Department Care Team (Late st Contact Info) Description 06/04/2020 12:00 EST Telemedicine [facility] Infectious Disease - [address] [address] Mushtaq Light, DO [address] [facility], [address] [place] [address] Osteomyelitis of great toe of [...] 12/05/19- Spine- told years ago ??? Diabetes ([facility]) ? A1c 10.3 on 11/28/2019 ??? History [...] BODIES: None ?? 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 Attends jainism service: Not on file ? Active member [...] few strep anginosus, moderate prevotella 05/03 covid-19 ASSOCIATE DIRECTOR DATA & ANALYTICS swab: negative 05/04 blood cultures:06/09 bottles growing [...]
--- OUTSIDE RECORDS SUMMARY | 2024-05-31 07:31 | XMS_ITS | Encounter Summary ---
Author Organization [facility] Address [address] [place] [address] Care Team Providers Care Casting Coordinator Name Role Phone Unavailable Primary Care Provider Unavailabl e Reason for Visit * Reason Comments Vaginal Bleeding Vaginal bleeding, ba ck pain, and cramping since tuesday, not soaking pads, only when wiping. seen here previously for toe amputation. Encounter Details Date Type Department Care Team (Late st Contact Info) Description 06/23/2020 8:23 EST - 06/23/2020 14:10 EST Emergency [facility] Emergency Department - [address] [address] Siobhan Hare PA-C [address] [place] [address], Level [address] [place] [address] of unknown anatomic location (Primary [...] Means Destination Comment s Home or Self Jail Pt dc home with WC with partner, [...] [facility]; given MTX 10/26/18 7 SAB 01/2018 6w0d SAB Comments: D&C at [facility] after nonviable on US; had to have repeat D&Bhavna November for retained POCs 6 SAB 06/2017 6w0d SAB Comments: D&C at [facility]; nonviable seen on US; fourth with current 5 SAB 02/2017 6w0d SAB Comments: D&C at [facility]; third with current 4 SAB 08/2015 10w0d SAB Comments: D&C at [facility]; 2nd with current 3 SAB 01/2015 9w0d SAB Comments: D&C at [facility]; first current 2 SAB 2005 6w0d SAB Comments: first ; ex ; twin confirmed by US at [facility]; no medical or surgical tx 1 Past GynHx: MTX given 10/26/2018 for interstitial . See above. PMedHx: Past Medical History: Diagnosis Date ??? Anxiety ??? Arthritis 12/05/19- Spine- told years ago ??? Depression ??? Diabetes ([facility]) A1c 10.3 on 11/28/2019 - poorly controlled ??? Difficulty opening mouth 06/13/2020 pain with opening mouth wide ??? Does not exercise 06/13/2020 due to infected toe ??? History of general anesthesia ??? Hx of ectopic 06/20/2020 ??? Irritable bowel syndrome 06/13/2020 ? ? Nausea & vomiting occasionally ??? Obesity, unspecified ??? Osteomyelitis ([facility]) of left great toe ??? [...] 27 mL 3 ??? lancets One Touch [employer] or other brand compatible with lancing device [...] Kenyon MD 06/23/2020 13:39 PGY4, OBGYN Pager #[phone] documented in this encounter ED Notes * [...] the Emergency Department: Good PCP: Tonja Alejandro [facility] 06/28/2020 17:56 No flowsheet data found. * Madelin Ma RN - 06/23/2020 1230 EST OVEN OPERATOR at bedside * Marychuy Kaufman - 06/23/2020 [...] for nonviable early in the first trimester. [place] Journal of Medicine 369.15 (2013): 0571-7306. I have personally reviewed the images and [...] AND SYMPTOMS/COMMENTS: of unknown location, LMP 05/06, MAS447 two days ago, not doubling appropriately COMPARISON: [...] for nonviablepregnancy early in the first trimester. [place] Journal of Ljuruktc349.15 (2013): 0352-2447. I have personally reviewed the images and the above interpretation andagree with the findings. Siobhan Hare PA-C [facility] [place] OB ORDERABLES Final Result * [facility] LAB CBC SMEAR REVIEW (06/23/2020 8:53 EST) Differential Comment Slide was examined by a technologist to verify the WBC and/or platelet count. 06/23/2020 9:44 EST [facility] Blood VENOUS BLOOD / Unknown Venipuncture / Unknown 06/23/2020 8:53 EST 06/23/2020 9:06 EST Siobhan Bonnie Payam PA-C HEMATOLOGY & PF4 ORD ERABLES Final Result [facility] [address] [place] [address] * (ABNORMAL) COMPLETE BLOOD COUNT AND DIFFERENTIAL (06/23/2020 8:53 EST) WBC 6.42 4.00 - 12.40 K/cmm 06/23/2020 9:45 [facility] RBC 4.96 3.86 - 5.04 M/cmm 06/23/2020 9:45 [facility] Hemoglobin 15.4(H) 11.6 - 15.2 gm/dL 06/23/2020 9:45 [facility] HCT 43.6 34.9 - 44.4 % 06/23/2020 9:45 [facility] MCV 88 81 - 98 fl 06/23/2020 9:45 [facility] MCH 31.0 26.7 - 33.3 pg 06/23/2020 9:45 [facility] MCHC 35.3 32.1 - 35.9 gm/dL 06/23/2020 9:45 [facility] RDW-CV 12.0 <14.7 % 06/23/2020 9:45 [facility] RDW-SD 38.6 <50.4 fl 06/23/2020 9:45 [facility] PLT 06/23/2020 9:45 [facility] Comment:Unreportable due to presence of platelet clumps. MPV 06/23/2020 9:45 [facility] Comment:Not Available % Neutrophils 52.1 % 06/23/2020 9:45 [facility] % Lymphocytes 41.0 % 06/23/2020 9:45 [facility] % Monocytes 4.7 % 06/23/2020 9:45 [facility] % Eosinophils 1.7 % 06/23/2020 9:45 [facility] % Basophils 0.3 % 06/23/2020 9:45 [facility] % Immature Grans 0.2 % 06/23/19 9:45 [facility] Absolute Neutrophils 3.35 2.20 - 8.85 K/cmm 06/23/2020 9:45 [facility] Absolute Lymphocytes 2.63 1.09 - 3.30 K/cmm 06/23/2020 9:45 [facility] Absolute Monocytes 0.30 0.10 - 0.80 K/cmm 06/23/2020 9:45 [facility] Absolute Eosinophils 0.11 0.03 - 0.61 K/cmm 06/23/2020 9:45 [facility] ABS Basophils 0.02 0.01 - 0.11 K/cmm 06/23/2020 9:45 [facility] Absolute Immature Grans 0.01 0.00 - 0.06 K/cmm 06/23/2020 9:45 [facility] Type of Differential: Auto 06/23/2020 9:45 [facility] Blood VENOUS BLOOD / Unknown Venipuncture / Unknown 06/23/2020 8:53 EST 06/23/2020 9:06 EST Siobhan Hare PA-C PACKAGES & DNA PROBE ORDERABLES Final Result [facility] [address] [place] [address] * (ABNORMAL) COMPREHENSIVE METABOLIC PANEL (CMP) (06/23/2020 8:53 EST) Sodium 143 136 - 145 mEq/L 06/23/2020 9:24 [facility] Potassium 5.0 3.5 - 5.0 mEq/L 06/23/2020 9:24 [facility] Comment:Slight hemolysis chica ntified, interpret with caution as hemolysis will elevate potassium result. Chloride 101 96 - 110 mEq/L 06/23/2020 9:24 [facility] CO2 Total 28 22 - 32 mEq/L 06/23/2020 9:24 [facility] Glucose 249(H) 70 - 100 mg/dL 06/23/2020 9:24 [facility] BUN 12 10 - 26 mg/dL 06/23/2020 9:24 [facility] Comment: Slight hemolysis identified, interpret with caution as results may be affected due to hemolysis. Creatinine 0.44(L) 0.52 - 1.04 mg/dL 06/23/2020 9:24 [facility] eGFR 131 >60 mL/min/1.7 3m2 06/23/2020 9:24 [facility] Comment:eGFR calculated usbrie curtis CKD-EPI equation for non- Americans. Multiply eGFR by 1.16 for patients. Total Protein 8.5(H) 6.3 - 8.2 g/dL 06/23/2020 9:24 [facility] Comment:Slight hemolysis chica ntified, interpret with caution as results may be affected due to hemolysis. Albumin 4.9 3.4 - 4.9 g/dL 06/23/2020 9:24 [facility] Comment:Slight hemolysis chica ntified, interpret with caution as results may be affected due to hemolysis. Alkaline Phosphatase 118 38 - 126 U/L 06/23/2020 9:24 [facility] Comment:Slight hemolysis chica ntified, hemolysis will decrease ALKP result. Interpret with caution as results may be affected due to hemolysis. AST 36 15 - 46 U/L 06/23/2020 9:24 [facility] Comment:Slight hemolysis chica ntified, interpret with caution as results may be affected due to hemolysis. ALT 20 <35 U/L 06/23/2020 9:24 [facility] Bilirubin, Total 0.7 <1.4 mg/dL 06/23/19 21 9:24 [facility] Calcium 10.2 8.5 - 10.5 mg/dL 06/23/2020 9:24 [facility] Calculated Calcium 9.5 8.5 - 10.5 mg/dL 06/23/2020 9:24 [facility] Comment:Slight hemolysis chica ntified, interpret with caution as results may be affected due to hemolysis. Blood VENOUS BLOOD / Unknown Venipuncture / Unknown 06/23/2020 8:53 EST 06/23/2020 9:06 EST us Siobhan Hare PA-C CHEMISTRY & BLOOD GA S ORDERABLES Final Result Performing Organization Address [facility]/ZIP Co de Phone Number [facility] [address] [place] [address] * (ABNORMAL) QUANT BETA HCG, (06/23/2020 8:53 EST) Beta HCG Quant, 111(H) <5 mIU/ml 06/23/2020 9:38 EST [facility], [...] & BLOOD GA S ORDERABLES Final Result [facility] [address] [place] [address] documented in this encounter Visit Diagnoses Diagnosis of unknown anatomic location- Primary state, incidental documented in this encounter
--- OUTSIDE RECORDS SUMMARY | 2024-05-31 07:31 | XMS_ITS | Encounter Summary ---
Author Organization [facility] Address [address] [place] [address] Care Team Providers Care Rubber Cutter Name Role Phone Unavailable Primary Care Provider Unavailabl e Reason for Visit * Reason Comments Encounter Details Date Type Department Care Team (Late st Contact Info) Description 06/20/2020 9:45 EST Office Visit [facility] Reproductive Medicine & Infertility Center - [address] [id number] Cielo Duggan MD [address] [facility], [address] [place] [address] of unknown anatomic location (Primary [...] included. [facility] Women???s [facility] Care Services [facility]-Level [address] [facility] FIRST TRIMESTER ULTRASOUND Reason for Visit: [...] precaustions 2.) hcg am of 06/21 with HEATING ELEMENT WINDER service to follow documented in this encounter [...]
--- OUTSIDE RECORDS SUMMARY | 2024-05-31 07:31 | XMS_ITS | Encounter Summary ---
Author Organization [facility] Address [address] [place] [address] Care Team Providers Care Nuclear Weapons Mechanical Specialist Name Role Phone Unavailable Primary Care [...]
--- OUTSIDE RECORDS SUMMARY | 2024-05-31 07:31 | XMS_ITS | Encounter Summary ---
Author Organization [facility] Address [address] [place] [address] Care Team Providers Care Radio Operator Ground Name Role Phone Unavailable Primary Care Provider Unavailabl e Encounter Details Date Type Department Care Team (Late st Contact Info) Description 06/19/2020 13:00 EST Phlebotomy Only [facility] ED Center 2 Phlebotomy [address] [place] [address] House Registry Rn, Acc Phlebotomy of unknown anatomic location (Primary [...] Quant, 108(H) <5 mIU/ml 06/19/2020 14:38 EST [facility] Comment: NOTE: [...] & BLOOD GAS ORD ERABLES Final Result [facility] [address] [place] [address] documented in this encounter Visit Diagnoses Diagnosis of unknown anatomic location- Primary state, incidental documented in this encounter
--- OUTSIDE RECORDS SUMMARY | 2024-05-31 07:31 | XMS_ITS | Encounter Summary ---
Author Organization [facility] Address [address] [place] [address] Care Team Providers Care Trumpet Player Name Role Phone Unavailable Primary Care Provider Unavailabl e Reason for Visit * Reason Comments Foot Problem * Follow Up (Routine/Next Available) - Receiving Office to Obtain Authorization Specialty Diagnoses / Procedures Referred By Kit goode Referred To Contact Podiatry Diagnoses Diabetic foot ulcer ([facility]) Carrington Mari MD [address] [place] [address] Phone: tel: fax: [facility] [address] [place] [address] Phone: tel: fax: Referral ID Status Reason Start Date Expiration Date Visits Requested Visits Authorized [id number] Receiving Office to Obtain Authorization Specialty Services Required 0 1 1 Encounter Details Date Type Department Care Team (Late st Contact Info) Description 05/14/2020 14:30 EST Office Visit [facility] Foot & Ankle Program - [address] [place] [address] Elza Navarro DPM [address] [place] [phone] Ulcer of great toe, left, with necrosis of bone ([facility]) (Primary Dx); Type 2 diabetes mellitus with diabetic polyneuropathy, with long-term current use of insulin ([facility]) Social History Tobacco Use Types [...] shoe andinsole. She has been taking the iulmubcunbe-Ispyshyjt-lfwjied any issues. She has been changing thedressing daily. Overall she is feeling well today. She denies pain in the toe. She denies nausea, vomiting, fever, chills. Patient Active Problem List Diagnosis Date Noted ??? 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 ([facility]) 05/03/2020 Priority: Medium ??? Osteomyelitis of great toe of left foot ([facility]) 03/12/2020 Priority: Medium ??? Diabetic foot ulcer associated with diabetes mellitus due to underlying condition ([facility]) 03/07/2020 Priority: Medium ??? Diabetic foot infection ([facility]) 03/06/2020 Priority: Medium ??? Diabetic foot ulcer ([facility]) 03/06/2020 Priority: Medium ??? Cellulitis of great toe of left foot 11/26/2019 Priority: Medium ??? Chronic midline low back pain without sciatica 11/26/2019 Priority: Medium ??? Chronic left ear pain 09/04/2015 Priority: Medium ??? Encounter for sterilization 11/20/2019 ??? Family history of rheumatoid arthritis 09/04/2015 ??? Type 2 diabetes mellitus ([facility]) 09/03/2015 ??? Anxiety and depression 05/12/2010 ??? Migraine with aura and without status migrainosus, not intractable Past Medical History: Diagnosis Date ??? Anxiety ??? Arthritis 12/05/19- Spine- told years ago ??? Diabetes ([facility]) A1c 10.3 on 11/28/2019 ??? [...] 27 mL 3 ??? lancets One Touch [employer] or other brand compatible with lancing device [...] toe, left, with necrosis of bone ([facility]) 2. Type 2 diabetes mellitus with diabetic polyneuropathy, with long-term current use of insulin ([facility]) No orders of the defined [...] toe, left, with necrosis of bone ([facility])- Primary Type 2 diabetes mellitus with diabetic polyneuropathy, with long-term current use of insulin ([facility]) documented in this encounter
--- OUTSIDE RECORDS SUMMARY | 2024-05-31 07:31 | XMS_ITS | Encounter Summary ---
Author Organization [facility] Address [address] [place] [address] Care Team Providers Care Certified Optician Name Role Phone Unavailable Primary Care Provider Unavailabl e Encounter Details Date Type Department Care Team (Latest Contact Info) Description 06/09/2020 9:35 EST Phlebotomy Only [facility] - [employer] [address] [place] [address] Osteomyelitis of left foot, unspecified type ([facility]) Social History Tobacco Use Types Packs/Day [...] ORDERABL ES Final Result Performing Organization Address [facility] Co de Phone Number [facility] [address] [place] [address] * COVID-19 TESTING (06/09/2020 9:28 EST) COVID-19 rt-PCR Result Negative Negative 06/09/2020 16:34 EST [facility] Comment: This test [...] history, and epidemiological information. Performed on the [employer] Fusion instrument Performing Lab [place] [facility] Lab 06/09/2020 16:34 EST [facility] Swab ENTIRE NASOPHARYNX / Unknown Swab / Unknown 06/09/2020 9:28 EST 06/09/2020 9:28 EST Elza Navarro DPM MICROBIOLOGY - GENERAL ORDERABL ES Final Result Performing Organization Address City/[facility]/ZIP Co de Phone Number [facility] [address] [place] [address] documented in this encounter Visit Diagnoses Diagnosis Osteomyelitis of left foot, unspecified type ([facility]) documented in this encounter
--- OUTSIDE RECORDS SUMMARY | 2024-05-31 07:31 | XMS_ITS | Encounter Summary ---
Author Organization [facility] Address [address] [place] [address] Care Team Providers Care Runway Model Name Role Phone Unavailable Primary Care Provider Unavailabl e Reason for Visit * Reason Onset Date Comments Medication Management 06/13/2020 Encounter Details Date Type Department Care Team (Late st Contact Info) Description 06/13/2020 Telephone [facility] Endocrinology - [facility] [address] [place] [address] Sara Zafar NP [address] [facility] [address] [place] [address] Medication Management Social History Tobacco [...]
--- OUTSIDE RECORDS SUMMARY | 2024-05-31 07:31 | XMS_ITS | Encounter Summary ---
Author Organization [facility] Address [address] [place] [address] Care Team Providers Care Plate Hanger Name Role Phone Unavailable Primary Care Provider [...]
--- OUTSIDE RECORDS SUMMARY | 2024-05-31 07:31 | XMS_ITS | Encounter Summary ---
Author Organization [facility] Address [address] [place] [address] Care Team Providers Care Foundry Engineer Name Role Phone Unavailable Primary Care Provider Unavailabl e Reason for Visit * Reason Onset Date Comments Appointment Related 06/12/2020 Encounter Details Date Type Department Care Team (Late st Contact Info) Description 06/12/2020 Telephone [facility] Endocrinology - [address] [facility] [address] [place] [address] Appointment Related Social History Tobacco [...] Answer Entry Date Author No 05/04/2020 0:28 Syvlia Alejandro RN documented in this encounter Miscellaneous Notes * Telephone Encounter - Mica Gaona - 06/12/2020 1133 EST LMOM regarding 05/22/20 No Show. Calling off the Bump List. documented in this encounter Plan of Treatment Not on file documented as of this encounter Visit Diagnoses Not on filedocumented in this encounter
--- OUTSIDE RECORDS SUMMARY | 2024-05-31 07:31 | XMS_ITS | Encounter Summary ---
Author Organization [facility] Address [address] [place] [address] Care Team Providers Care Douper Name Role Phone Unavailable Primary Care Provider Unavailabl e Reason for Referral * GRAD INTERN (Routine) - Specialty Report Received Specialty Diagnoses / Procedures Referred By Kit t Referred To Contact Diagnoses of unknown anatomic location Procedures OB FIRST TRIMESTER (LESS THAN 14 WEEKS) TRANSVAGINAL David Martínez MD Phone: tel: fax: Referral ID Status Reason Start Date Expiration Date V isits Requested Visits Authorized [id number] Specialty Report Received 06/19/2020 1 1 Reason for Visit * GRAD INTERN (Routine) - Specialty Report Received Specialty Diagnoses / Procedures Referred By Kit goode Referred To Contact Diagnoses of unknown anatomic location Procedures US OB FIRST TRIMESTER (LESS THAN 14 WEEKS) TRANSVAGINAL David Martínez MD Phone: tel: fax: Referral ID Status Reason Start Date Expiration Date V isits Requested Visits Authorized [id number] Specialty Report Received 06/19/2020 1 1 Encounter Details Date Type Department Care Team (Latest Contact Info) Description 06/20/2020 9:00 EST - 06/20/2020 23:59 EST Hospital Encounter [facility] OBGYN Services - [address] [place] [address] [place] [address] of unknown anatomic location Discharge Disposition: Home [...] Sufficient. Impression 1st Trimester OB scan ,transvaginal [id number] There is no visualized gestational sac either [...] The adnexa appear normal. Follow-up Per the DERMATOLOGY TECHNICIAN service. Comment ========= Results discussed w/patient. DATE [...] Sufficient. Impression 1st Trimester OB scan ,transvaginal [phone] There is no visualized gestational sac either [...] The adnexa appear normal. Follow-up Per the DERMATOLOGY TECHNICIAN service. Comment ========= Results discussed w/patient. DATE [...] Sufficient. Impression 1st Trimester OB scan ,transvaginal [phone] There is no visualized gestational sac either [...] The adnexa appear normal. Follow-up Per the DERMATOLOGY TECHNICIAN service. Comment ========= Results discussed w/patient. DATE OF SERVICE: 06/20/2020 David Martínez MD [facility] OB ORDERABLES Edit ed Result - Final documented in this encounter Visit Diagnoses Diagnosis of unknown anatomic location state, incidental documented in this encounter
--- OUTSIDE RECORDS SUMMARY | 2024-05-31 07:31 | XMS_ITS | Encounter Summary ---
Author Organization [facility] Address [address] [place] [address] Care Team Providers Care Lead Sales Consultant Name Role Phone Unavailable Primary Care Provider Unavailabl e Reason for Visit * Auth/Cert Specialty Diagnoses / Procedures Referred By Contac t Referred To Contact Diagnoses Encounter for sterilization Procedures KS LAP,RMV ADNEXAL STRUCTURE Laparoscopic Bilateral Salpingectomy Referral ID Status Reason Start Date Expiration Date Visits Re quested Visits Authorized [id number] 1 1 Encounter Details Date Type Department Care Team (Latest Contact Info) Description 06/16/2020 13:35 EST - 06/16/2020 17:05 [facility] Hospital Encounter [facility] Main Concrete OR [address] [place] [address] Elza Navarro DPDickson [address] [place] [phone] Osteomyelitis of left foot, unspecified type ([facility]) Discharge Disposition: Home or Self Care [...] can be contacted during weekday officehours at [phone]. If there is an emergency, Dr. Navarro may also be contacted via pager by calling the [facility] at [phone] or [phone] (pager # [phone]). documented in this encounter Medications at Time [...] last A1c was 9.1. According to her wine cellar worker, patient is instructed to take 32 units [...] ago ??? Depression ??? Diabetes ([facility]) A1c 10.3 on 11/28/2019 - poorly [...] X Gastrointestinal x Intermittent nausea from antibiotics TECHNOLOGY ARCHITECT x History of multiple miscarriages Musculoskeletal x [...] intrathoracic) 2. History of CAD (history of SD or a positive ETT, current ischemic chest [...] Notes * Mallorie Marcial, MARCELO - 06/16/2020 5435 EST The Patient's Pre-Surgical/ Procedure test result is Positive. The Surgeon Dr. Navarro and the Anesthesiologist Have been Notified of the result. The Patient was counseled by anesthesia and Dr. Navarro regarding the Risks and Benefits of proceeding with the Surgery/ Procedure and Anesthesia. documented in this encounter OR Notes * OR Surgeon - Elza Navarro DPM - 06/16/2020 1107 EST OPERATIVE REPORT SERVICE DATE: 06/16/2020 SURGEON: Elza Navarro DPM SUPERVISOR MAILS: None. PREOPERATIVE DIAGNOSIS: Left great toe osteomyelitis. [...] retained. Elza Navarro DPM / DC Confirmation: [id number] Dictation ID: [id number] cc: documented in this encounter Miscellaneous Notes * Brief Op Note - Elza Navarro DPM - 06/16/2020 1644 EST Date: 06/16/2020 Location: [facility] OR Name: Cristy Luo, : 1985, Diagnosis Pre-op Diagnosis * Osteomyelitis of toe of left foot ([facility]) [M86.9] * Type 2 diabetes mellitus with diabetic polyneuropathy, with long-term current use of insulin ([facility]) [E11.42, Z79.4] Post-op Diagnosis * Osteomyelitis of toe of left foot ([facility]) [M86.9] * Type 2 diabetes mellitus with diabetic polyneuropathy, with long-term current use of insulin ([facility]) [E11.42, Z79.4] Procedures Left great toe amputation 22840 - KS AMPUTATION TOE,MT-P JT Surgeons * Elza Navarro DPM - Primary Procedure Summary Anesthesia: Monitor Anesthesia Care ASA: ASA status not filed in the log. Estimated Blood Loss: < 5 cc Total IV Fluids: per anesthesia Staff: Ore Grader: Cherie Mayes RN Scrub Person: Arturo Pelletier Patient Activated Sludge Attendant: Carlita Charles Indications: Stella Luo is an [...] protocol. Patient will call GUSTAVO Collado (Diabetes ANATOMIC PATHOLOGY MANAGER) for any further questions regarding diabetes management pre op NAOMI NAVA RN * PAT Note - Naomi Nava RN - 06/13/2020 0930 EST COVID 19 Screening Perioperative at time [...] instruct them to call us back at [phone] to report symptoms (If patient is in [...] polyneuropathy, with long-term current use of insulin ([facility]) Special Needs Foot Set, Patient already has surgical shoe POCT GLUCOSE, INTERFACED Routine 06/16/2020 14:40 EST POCT CSN BARCODE URINE PREG TEST STAT 06/16/2020 14:22 EST documented in this encounter Results * PATHOLOGY - SCANNED (06/20/2020 11:10 EST) 06/20/2020 11:1 0 EST us Scan 2 Rubber Worker LAB INFO SERVICE AND SUPPOR T & PHONE RESULT Final Result * SURGICAL PATHOLOGY (06/16/2020 16:21 EST) Final Diagnosis A. TOE, LEFT GREAT, AMPUTATION: - Acute osteomyelitis. - Disarticulated joint with no gross evidence of acute osteomyelitis. - Skin with ulceration and acute cellulitis. 06/19/2020 15:19 [facility] Attestation There was significant resident/fellow involvement in the diagnostic evaluation of this case. By the signature below, the attending physician certifies that they have personally conducted a gross and/or microscopic examination of the described specimens and rendered or confirmed the above diagnosis. 06/19/2020 15:19 [facility] at 1519 Clinical History Left great toe osteomyelitis 06/19/2020 15:19 [facility] Gross Description A. Received [...] unguis is pale yellow firm and unremarkable. Precision Lens Grinder sections are submitted as follows: BLOCK SHIELDS A1-A2- underlying bone, acid decalcification A3- defect to skin and soft tissue margins EUNICE GUAJARDO(ASCP) 06/17/2020 11:11 06/19/2020 15:19 [facility] Resident/Cash w: Emory Nazario DO 06/19/2020 15:19 [facility] Performing Lab [facility] 15:19 [facility] Scanned Images 06/19/2020 15:19 [facility] Tissue AMPUTATION / Unknown 06/16/2020 16:21 EST 06/16/2020 21:33 EST Comment:Left great toe osteo myelitis us Elza Navarro DPM PATHOLOGY ORDERABLES Final Resu lt [facility] [address] [place] [id number] * (ABNORMAL) ANAEROBE CULTURE/SMEAR(INC. AEROBES), OTHER (06/16/2020 16:21 EST) Organism ID Moderate Streptococcus agalactiae(A) 1 8:41 [facility] Comment:Penicillin and ampic illin are drugs of choice for treatment of beta hemolytic streptococcal infections. Organism ID Few Staphylococcus aureus(A) VITEK SUSCEPTIBILITY 1 8:41 [facility] Comment:Susceptible to nafci llin, cephalosporins and other beta lactam antibiotics (mecA gene product absent). Organism ID Few Gram-Positive Rods Aerobic (Group) 1 8:41 [facility] Organism ID Rare Prevotella bivia(A) 1 8:41 [facility] Organism ID Few Anaerococcus tetradius(A) 1 8:41 [facility] Smear Many Neutrophils Present 1 8:41 [facility] Smear Moderate Gram Positive Cocci 1 8:41 [facility] Bone ENTIRE TOE / [...] ORDERABL ES Final Result Performing Organization Address City/[facility]/ZIP Co de Phone Number [facility] [address] [place] [address] * (ABNORMAL) POCT GLUCOSE, INTERFACED (06/16/2020 14:40 EST) Glucose, POC 166(H) 70 - 100 mg/dL 06/16/2020 14:43 [facility] crater and packer ID [id number] 06/16/2020 14:43 [facility] HN LAB POC COMMENT (GLUCOSE) Test Performed by Nursing Services 06/16/2020 14:43 [facility] Blood CAPILLARY BLOOD / Unknown 06/16/2020 14:40 EST 06/16/2020 14:43 EST us Elza Navarro DPM POINT OF CARE TEST ORDERABLES F inal Result Performing Organization Address City/[facility]/ZIP Co de Phone Number [facility] [address] [place] [address] * POCT CSN BARCODE URINE PREG TEST (06/16/2020 14:22 EST) Hold Hold 06/16/2020 16:30 [facility] Urine URINE SPECIMEN COLLECTION, CLEAN CATCH / Unknown 06/16/2020 14:22 EST 06/16/2020 14:22 EST us Tiff Salcedo MD LAB INFO SERVICE AND SUP PORT & PHONE RESULT Final Result [facility] [address] [place] [address] documented in this encounter Visit Diagnoses Diagnosis [...]
--- OUTSIDE RECORDS SUMMARY | 2024-05-31 07:31 | XMS_ITS | Encounter Summary ---
Author Organization [facility] Address [address] [place] [address] Care Team Providers Care Maintenance Of Way Supervisor Name Role Phone Unavailable Primary Care Provider Unavailabl e Encounter Details Date Type Department Care Team ([facility] Contact Info) Description 05/12/2020 Documentation Visit [facility] - [address] [place], [place] [address] Marcel Bustamante Social History Tobacco Use Types [...]
--- OUTSIDE RECORDS SUMMARY | 2024-05-31 07:31 | XMS_ITS | Encounter Summary ---
Author Organization [facility] Address [address] [place] [address] Care Team Providers Care Software Tools Build Engineer Name Role Phone Unavailable Primary Care [...]
--- OUTSIDE RECORDS SUMMARY | 2024-05-31 07:31 | XMS_ITS | Encounter Summary ---
Author Organization [facility] Address [address] [place] [address] Care Team Providers Care Employee Relations Administrator Name Role Phone Unavailable Primary Care Provider Unavailabl e Reason for Visit * Reason Comments Foot Problem Encounter Details Date Type Department Care Team (Late st Contact Info) Description 05/06/2020 10:[address] [facility] Foot & Ankle Program - [address] [place] [address] Elza Navarro DPM [address] [place] [phone] Ulcer of great toe, left, with necrosis of bone ([facility]) (Primary Dx); Type 2 diabetes mellitus with diabetic polyneuropathy, with long-term current use of insulin ([facility]) Social History Tobacco Use [...] the great toe. She had to leave [employer] due to childcare issues at home. She [...] diabetes mellitus with left diabetic foot ulcer ([facility]) 05/03/2020 Priority: Medium ??? Osteomyelitis of great toe of left foot ([facility]) 03/12/2020 Priority: Medium ??? Diabetic foot ulcer associated with diabetes mellitus due to underlying condition ([facility]) 03/07/2020 Priority: Medium ??? Diabetic foot infection ([facility]) 03/06/2020 Priority: Medium ??? Diabetic foot ulcer ([facility]) 03/06/2020 Priority: Medium ??? Cellulitis of great toe of left foot 11/26/2019 Priority: Medium ??? Chronic midline low back pain without sciatica 11/26/2019 Priority: Medium ??? Chronic left ear pain 09/04/2015 Priority: Medium ??? Encounter for sterilization 11/20/2019 ??? Family history of rheumatoid arthritis 09/04/2015 ??? Type 2 diabetes mellitus ([facility]) 09/03/2015 ??? Anxiety and depression 05/12/2010 ??? Migraine with aura and without status migrainosus, not intractable Past Medical History: Diagnosis Date ??? Anxiety ??? Arthritis 12/05/19- Spine- told years ago ??? Diabetes ([facility]) A1c 10.3 on 11/28/2019 ??? [...] 27 mL 3 ??? lancets [employer] or other brand compatible with lancing device [...] with long-term current use of insulin ([facility]) No orders of the defined [...] prepared with speech recognition software or keyboard log data technician techniques. Minor irregularities or keyboarding misprints may be present documented in this encounter Plan of Treatment Not on file documented as of this encounter Visit Diagnoses Diagnosis Ulcer of great toe, left, with necrosis of bone ([facility])- Primary Type 2 diabetes mellitus with diabetic polyneuropathy, with long-term current use of insulin ([facility]) documented in this encounter Discontinued Medications [...]
--- OUTSIDE RECORDS SUMMARY | 2024-05-31 07:31 | XMS_ITS | Encounter Summary ---
Author Organization [facility] Address [address] [place] [address] Care Team Providers Care Analog Device Designer Name Role Phone Unavailable Primary Care Provider Unavailabl e Encounter Details Date Type Department Care Team (Late st Contact Info) Description 06/13/[address] Orders [address] [facility] Adult Primary Care - [address] [id number] Tonja Alejandro PA-C [address] [place] [address] [place] [phone] Tobacco abuse (Primary Dx) Social History [...]
--- OUTSIDE RECORDS SUMMARY | 2024-05-31 07:31 | XMS_ITS | Encounter Summary ---
Author Organization [facility] Address [address] [place] [address] Care Team Providers Care Parts Professional Name Role Phone Unavailable Primary Care Provider Unavailabl e Reason for Visit * Reason Comments Foot Problem Encounter Details Date Type Department Care Team (Latest Contact Info) Description 06/05/2020 10:30 EST Office Visit [facility] Foot & Ankle Program - [address] [place] [address] Elza Navarro DPM [address] [place] [phone] Osteomyelitis of toe of left foot ([facility]) (Primary Dx); Type 2 diabetes mellitus with diabetic polyneuropathy, with long-term current use of insulin ([facility]) Social History Tobacco Use [...] diabetes mellitus with left diabetic foot ulcer ([facility]) 05/03/2020 Priority: Medium ??? Osteomyelitis of great toe of left foot ([facility]) 03/12/2020 Priority: Medium ??? Diabetic foot ulcer associated with diabetes mellitus due to underlying condition ([facility]) 03/07/2020 Priority: Medium ??? Diabetic foot infection ([facility]) 03/06/2020 Priority: Medium ??? Diabetic foot ulcer ([facility]) 03/06/2020 Priority: Medium ??? Cellulitis of great toe of left foot 11/26/2019 Priority: Medium ??? Chronic midline low back pain without sciatica 11/26/2019 Priority: Medium ??? Chronic left ear pain 09/04/2015 Priority: Medium ??? Encounter for sterilization 11/20/2019 ??? Family history of rheumatoid arthritis 09/04/2015 ??? Type 2 diabetes mellitus ([facility]) 09/03/2015 ??? Anxiety and depression 05/12/2010 ??? Migraine with aura and without status migrainosus, not intractable Past Medical History: Diagnosis Date ??? Anxiety ??? Arthritis 12/05/19- Spine- told years ago ??? Diabetes ([facility]) A1c 10.3 on 11/28/2019 ??? History of [...] 1. Osteomyelitis of toe of left foot ([facility]) CASE REQUEST OPERATING ROOM 2. Type 2 diabetes mellitus with diabetic polyneuropathy, with long-term current use of insulin ([facility]) CASE REQUEST OPERATING ROOM No orders of [...] with speech recognition software or keyboard data control assistant techniques. Minor irregularities or keyboarding misprints may be present documented in this encounter Plan of Treatment Not on file documented as of this encounter Visit Diagnoses Diagnosis Osteomyelitis of toe of left foot ([facility] Primary Unspecified osteomyelitis, ankle and foot Type 2 diabetes mellitus with diabetic polyneuropathy, with long-term current use of insulin ([facility]) documented in this encounter Orders Case Request Count Last Ordered Date First Orde red Date CASE REQUEST OPERATING ROOM 1 06/05/2020 documented in this encounter
--- OUTSIDE RECORDS SUMMARY | 2024-05-31 07:31 | XMS_ITS | Encounter Summary ---
Author Organization [facility] Address [address] [place] [address] Care Team Providers Care Vice President Planning Name Role Phone Unavailable Primary Care Provider Unavailabl e Reason for Referral * PROGRAMMING EQUIPMENT OPERATOR (Routine) - Specialty Report Received Specialty Diagnoses / Procedures Referred By Contac t Referred To Contact Diagnoses of unknown anatomic location Procedures OB FIRST TRIMESTER (LESS THAN 14 WEEKS) TRANSVAGINAL Charu Flynn MD Phone: tel: fax: Referral ID Status Reason Start Date Expiration Date V isits Requested Visits Authorized [id number] Specialty Report Received 06/20/2020 1 1 Reason for Visit * Reason Onset Date Comments Follow-up 06/20/2020 Encounter Details Date Type Department Care Team (Late Contact Info) Description 06/20/2020 Telephone [facility] OBGYN Services - [address] [phone] Susana Tomlinson, RN Follow-up Social History Tobacco [...] Encounter - Susana Tomlinson RN - 06/20/2020 1593 EST Spoke Stella: advised plan per MD [...] call us with any concerns or questions. SALVAGE ENGINEER nurse line [phone], or after hours MD line [phone]. documented in this encounter Plan of Treatment [...] 8. View: Sufficient. Impression OB Transvaginal - [id number]. 1. of unknown location with findings that [...] GA 7 w + 1 d Assigned VIAN: 02/10/2021 Assessment Gestational sac: Not visualized. Location: [...] 8. View: Sufficient. Impression OB Transvaginal - 22620. 1. of unknown location with findings that [...]
--- OUTSIDE RECORDS SUMMARY | 2024-05-31 07:31 | XMS_ITS | Encounter Summary ---
Author Organization [facility] Address [address] [place] [address] Care Team Providers Care Operating Room Rn Name Role Phone Unavailable Primary Care [...]
--- OUTSIDE RECORDS SUMMARY | 2024-05-31 07:31 | XMS_ITS | Encounter Summary ---
Author Organization [facility] Address [address] [place] [address] Care Team Providers Care Cigarette Filter Inspector Name Role Phone Unavailable Primary Care Provider Unavailabl e Reason for Visit * Reason Comments Diabetes Encounter Details Date Type Department Care Team (Latest Contact Info) Description 06/05/2020 14:00 EST Telemedicine [facility] - [facility] [address] [place], [place] [phone] Sara Zafar NP [address] [facility] [address] [place] [phone] Type 2 diabetes mellitus with left diabetic [...] APRN - 06/05/2020 1400 EST Subjective: [facility] F/U Note TELEMEDICINE [...] Dr. Srinivasan in 2009. 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 Recurrent loss is attributed to to poorly controlled type 2 diabetes in conjunction with tobacco dependence. She saw STRATEGY SPECIALIST on 11/03/2018, and was advised to get [...] siblings, knows about 2, no DM. 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 Previous [...] and send BS. Freestyle Vignesh CGM ordered. [facility]. Novolog to 8-10 units 15 minute [...] mellitus with left diabetic foot ulcer ([facility] Primary Type II [...]
--- OUTSIDE RECORDS SUMMARY | 2024-05-31 07:31 | XMS_ITS | Encounter Summary ---
Author Organization [facility] Address [address] [place] [address] Care Team Providers Care Chemical Preparer Name Role Phone Unavailable Primary Care Provider Unavailabl e Reason for Visit * Reason Onset Date Comments Follow-up 06/21/2020 Encounter Details Date Type Department Care Team (Late st Contact Info) Description 06/21/2020 Telephone [facility] OBGYN Services - [facility] [address] [place], [place] [phone] Mackenzie Kenyon MD [address] [phone] Follow-up Social History Tobacco Use Types Packs/Day [...] Kenyon MD 06/21/2020 12:12 PGY4, OBGYN Pager #[phone] documented in this encounter Plan of Treatment Not on file documented as of this encounter Visit Diagnoses Diagnosis of unknown anatomic location- Primary state, incidental documented in this encounter
--- OUTSIDE RECORDS SUMMARY | 2024-05-31 07:31 | XMS_ITS | Encounter Summary ---
Author Organization [facility] Address [address] [place] [address] Care Team Providers Care Telephone Diaphragm Assembler Name Role Phone Unavailable Primary Care [...]
--- OUTSIDE RECORDS SUMMARY | 2024-05-31 07:31 | XMS_ITS | Encounter Summary ---
Author Organization [facility] Address [address] [place] [address] Care Team Providers Care Assistant Kitchen Manager Name Role Phone Unavailable Primary Care Provider Unavailabl e Reason for Visit * Auth/Cert Specialty Diagnoses / Procedures Referred By Kit t Referred To Contact Diagnoses Encounter for sterilization Procedures NH LAP,RMV ADNEXAL STRUCTURE Laparoscopic Bilateral Salpingectomy Referral ID Status Reason Start Date Expiration Date Visits Re quested Visits Authorized [id number] 1 1 Encounter Details Date Type Department Care Team (Late st Contact Info) Description 06/16/2020 15:25 EST - 06/16/2020 16:40 EST Surgery [facility] [place] [address] [place] [address] Elza Navarro DPM [address] [place] [phone] Left great toe amputation [61074 (CPT??)] Surgery Details Date/Time Status Location OR Service Patient Class Case Cl ass Case Type Trauma Case? 06/16/2020 1525 Posted [facility] OR [facility] Orthopedics [facility] Outpatient Surgery H - Elective Panel [...] can be contacted during weekday officehours at [phone]. If there is an emergency, Dr. Navarro may also be contacted via pager by calling the [facility] at [phone] or [phone] (pager # [phone]). documented in this encounter Medications at Time [...] Notes * Silvia Mcdaniel RN - 06/16/2020 3034 EST Preop Covid DOS screening questionnaire Please [...] last A1c was 9.1. According to her video specialist, patient is instructed to take 32 [...] Obesity, unspecified ??? Osteomyelitis ([facility]) of left great toe ??? 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 History of CAD (history of [place] or a positive ETT, current ischemic chest [...] Notes * Mallorie Marcial RN - 06/16/2020 1458 EST The Patient's Pre-Surgical/ Procedure test result is Positive. The Surgeon Dr. Navarro and the Anesthesiologist Have been Notified of the result. The Patient was counseled by anesthesia and Dr. Navarro regarding the Risks and Benefits of proceeding with the Surgery/ Procedure and Anesthesia. documented in this encounter OR Notes * OR Surgeon - Elza Navarro DPM - 06/16/2020 9402 EST OPERATIVE REPORT SERVICE DATE: 06/16/2020 SURGEON: Elza Navarro DPM BLIND STITCH MACHINE OPERATOR: None. PREOPERATIVE DIAGNOSIS: Left great [...] retained. Elza Navarro DPM / DC Confirmation: [id number] Dictation ID: [id number] cc: documented in this encounter Miscellaneous Notes * Brief Op Note - Elza Navarro DPM - 06/16/2020 1644 EST Date: 06/16/2020 Location: [facility] OR Name: Cristy Luo, : 1985, Diagnosis Pre-op Diagnosis * Osteomyelitis of toe of left foot ([facility]) [M86.9] * Type 2 diabetes mellitus with diabetic polyneuropathy, with long-term current use of insulin (HCC-CMS) [E11.42, Z79.4] Post-op Diagnosis * Osteomyelitis of toe of left foot (HCC-CMS) [M86.9] * Type 2 diabetes mellitus with diabetic polyneuropathy, with long-term current use of insulin ([facility]) [E11.42, Z79.4] Procedures Left great toe amputation 46491 - NH AMPUTATION TOE,MT-P JT Surgeons * Elza Navarro DPM - Primary Procedure Summary Anesthesia: Monitor Anesthesia Care ASA: ASA status not filed in the log. Estimated Blood Loss: < 5 cc Total IV Fluids: per anesthesia Staff: Dean Of Students: Cherie Mayes RN Scrub Person: Arturo Pelletier Patient Bean Picker Machine Operator: Carlita Charles Indications: Stella Luo is an [...] Patient will call GUSTAVO Collado (Diabetes MANAGER OPERATIONS RESEARCH) for any further questions regarding diabetes management pre op NAOMI NAVA RN * JOHN Note - Naomi Nava RN - 06/13/2020 0926 EST COVID 19 Screening Perioperative at time [...] instruct them to call us back at [phone] to report symptoms (If patient is in [...] EST Osteomyelitis of toe of left foot ([facility]) Type 2 diabetes mellitus with diabetic polyneuropathy, with long-term current use of insulin ([facility]) Special Needs Foot Set, Patient already has surgical shoe POCT GLUCOSE, INTERFACED Routine 06/16/2020 14:40 EST POCT CSN BARCODE URINE PREG TEST STAT 06/16/2020 14:22 EST documented in this encounter Results * PATHOLOGY - SCANNED (06/20/2020 11:10 EST) 06/20/2020 11:1 0 EST us Scan 2 Filter Changing Technician LAB INFO SERVICE AND SUPPOR T & PHONE RESULT Final Result * SURGICAL PATHOLOGY (06/16/2020 16:21 EST) Final Diagnosis A. TOE, LEFT GREAT, AMPUTATION: - Acute osteomyelitis. - Disarticulated joint with no gross evidence of acute osteomyelitis. - Skin with ulceration and acute cellulitis. 06/19/2020 15:19 [facility] Attestation There was significant resident/fellow involvement in the diagnostic evaluation of this case. By the signature below, the attending physician certifies that they have personally conducted a gross and/or microscopic examination of the described specimens and rendered or confirmed the above diagnosis. 06/19/2020 15:19 [facility] at 1519 Clinical History Left great toe osteomyelitis 06/19/2020 15:19 [facility] Gross Description A. Received in [...] margins, inked black. The epidermal surface is oclunga-pink and wrinkled with a minimal amount of skin desquamation at the distal lateral aspect. The unguis is pale yellow firm and unremarkable. Door Furring Installer sections are submitted as follows: BLOCK SHIELDS A1-A2- underlying bone, acid decalcification A3- defect to skin and soft tissue margins EUNICE GUAJARDO(ASCP) 06/17/2020 11:11 06/19/2020 15:19 [facility] Resident/Cash w: Emory Nazario DO 06/19/2020 15:19 [facility] Performing Lab [facility] 15:19 [facility] Scanned Images 06/19/2020 15:19 [facility] Tissue AMPUTATION / Unknown 06/16/2020 16:21 EST 06/16/2020 21:33 EST Comment:Left great toe osteo myelitis us Elza Navarro DPM PATHOLOGY ORDERABLES Final Resu lt [facility] [address] [place] [address] * (ABNORMAL) ANAEROBE CULTURE/SMEAR(INC. AEROBES), OTHER (06/16/2020 16:21 EST) Organism ID Moderate Streptococcus agalactiae(A) 1 8:41 [facility] Comment:Penicillin and ampic illin are drugs of choice for treatment of beta hemolytic streptococcal infections. Organism ID Few Staphylococcus aureus(A) VITEK SUSCEPTIBILITY 1 8:41 [facility] Comment:Susceptible to nafci llin, cephalosporins and other beta lactam antibiotics (mecA gene product absent). Organism ID Few Gram-Positive Rods Aerobic (Group) 1 8:41 [facility] Organism ID Rare Prevotella bivia(A) 1 8:41 [facility] Organism ID Few Anaerococcus tetradius(A) 1 8:41 [facility] Smear Many Neutrophils Present 1 8:41 [facility] Smear Moderate Gram Positive Cocci 1 8:41 [facility] Bone ENTIRE TOE / Unknown [...] MICROBIOLOGY - GENERAL ORDERABL ES Final Result [facility] [address] [place] [address] * (ABNORMAL) POCT GLUCOSE, INTERFACED (06/16/2020 14:40 EST) Glucose, POC 166(H) 70 - 100 mg/dL 06/16/2020 14:[address] [facility] mobile application tester ID [id number] 06/16/2020 14:43 [facility] HN LAB POC COMMENT (GLUCOSE) Test Performed by Nursing Services 06/16/2020 14:43 [facility] Blood CAPILLARY BLOOD / Unknown 06/16/2020 14:40 EST 06/16/2020 14:43 EST us Elza Navarro DPM POINT OF CARE TEST ORDERABLES F inal Result Performing Organization Address City/[facility]/ZIP Co de Phone Number [facility] [address] [place] [address] * POCT CSN BARCODE URINE PREG TEST (06/16/2020 14:22 EST) Hold Hold 06/16/2020 16:[address] [facility] Urine URINE SPECIMEN COLLECTION, CLEAN CATCH / Unknown 06/16/2020 14:22 EST 06/16/2020 14:22 EST us Tiff Salcedo MD LAB INFO SERVICE AND SUP PORT & PHONE RESULT Final Result Performing Organization Address City/[facility]/ZIP Co de Phone Number [facility] [address] [place] [address] documented in this encounter Visit Diagnoses Diagnosis Osteomyelitis of left foot, unspecified type (HCC-CMS) Osteomyelitis of toe of left foot (HCC-CMS) Unspecified osteomyelitis, ankle and foot Type 2 diabetes mellitus with diabetic polyneuropathy, with long-term current use of insulin ([facility]) Osteomyelitis of toe of left foot (HCC-CMS) Unspecified osteomyelitis, ankle and foot Type 2 diabetes mellitus with diabetic polyneuropathy, with long-term current use of insulin ([facility]) documented in this encounter Admitting Diagnoses Diagnosis Osteomyelitis of toe of left foot ([facility]) Unspecified osteomyelitis, ankle and foot Type 2 diabetes mellitus with diabetic polyneuropathy, with long-term current use of insulin ([facility]) documented in this encounter Administered [...]
--- OUTSIDE RECORDS SUMMARY | 2024-05-31 07:31 | XMS_ITS | Encounter Summary ---
Author Organization [facility] Address [address] [place] [address] Care Team Providers Care Dinkey Engineer Name Role Phone Unavailable Primary Care Provider Unavailabl e Reason for Visit * Reason Comments Pre-op Exam toe Encounter Details Date Type Department Care Team (Latest Contact Info) Description 06/13/2020 15:30 EST Office Visit [facility] Adult Primary Care - [address] [address] Teodoro [facility]jandro [facility]-C [facility] [address] [place] [phone] Osteomyelitis of great toe of left [...] last A1c was 9.1. According to her strap sewer, patient is instructed to take 32 units [...] Depression ??? 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 History of CAD (history of [place] or a positive ETT, current ischemic chest [...] 06/13/2020 15:5 3 EST us Scan 2 Rn House Supervisor PROCEDURE/MINOR SURGICAL OR DERABLES Final Result * EKG 12-LEAD (06/13/2020 15:41 EST) 06/13/2020 15:4 1 EST Narrative [facility] EKG - 06/13/2020 15:48 EST ? PC Site ? Test Date: ?2020-06-13 Pat Name: ? CRISTY YOUNG ?Department: ?? [facility] ? Room: ? Gender: ? Female ? Associate Curator: ?? [id number] : ?1985 ? Requested By: HUBERT Forman Order Number: [id number] ? Reading MD: ?? TEODORO ALEJANDRO PA-C ? Measurements Intervals ?[place] ? Rate: ? 94 ? P: ?59 [place]: ? 156 ?QRS: ?34 QRSD: ? 89 [...] Date: 2020-06-13 Pat Name: CRISTY LUO Department: [facility] Room: Gender: Female Associate Curator: [id number] : 1985 Requested By: HUBERT Forman Order Number: [id number] Reading MD: TEODORO ALEJANDRO PA-C Measurements Intervals [place] Rate: 94 P: 59 [place]: 156 QRS: 34 QRSD: 89 T: 13 QT: 335 QTc: 420 Interpretive Statements SINUS RHYTHM Automated Interpretation. Provider Interpretation to follow. Compared to ECG 06/18/2019 08:28:09 No significant changes I reviewed the tracing and have either agreed or edited the findings inthis report. Electronically Signed On 06-13-2020 15:48:18 EST by TEODORO SPENCE us Teodoro Alejandro PA-C CARDIAC ECG ORDERABL ES Final Result [facility] EKG documented in this encounter Visit Diagnoses Diagnosis Osteomyelitis of great toe of left foot (HCC-CMS)- Primary Pre-op examination Preoperative examination, unspecified documented in this encounter
--- OUTSIDE RECORDS SUMMARY | 2024-05-31 07:31 | XMS_ITS | Encounter Summary ---
Author Organization [facility] Address [address] [place] [address] Care Team Providers Care Pipe Fitter Supervisor Maintenance Name Role Phone Unavailable Primary Care Provider Unavailabl e Reason for Visit * Auth/Cert Specialty Diagnoses / Procedures Referred By Kit t Referred To Contact Diagnoses Encounter for sterilization Procedures OK LAP,RMV ADNEXAL STRUCTURE Laparoscopic Bilateral Salpingectomy Referral ID Status Reason Start Date Expiration Date Visits Re quested Visits Authorized [id number] 1 1 Encounter Details Date Type Department Care Team (Late st Contact Info) Description 06/16/2020 16:00 EST Anesthesia Event [facility] OR [address] [place], [place] [id number] Mushtaq Vuong MD [address] [facility], [address] [place] [phone] Elliott Skinner MD Anesthesia Record Procedure Summary [...] Barahona RN 08/06/20 0414 by Nanda Gibson, baggage inspector 03/10/20; Abrasion; Right, Plantar; N; Partial thickness; [...] years ago ??? Depression ??? Diabetes ([facility]) A1c 10.3 on 11/28/2019 - poorly [...] protocol. Patient will call GUSTAVO Collado (Diabetes ADMINISTRATION MANAGER) for any further questions regarding diabetes [...] instruct them to call us back at [phone] to report symptoms (If patient is in [...]
--- OUTSIDE RECORDS SUMMARY | 2024-05-31 07:31 | XMS_ITS | Encounter Summary ---
Author Organization [facility] Address [address] [place] [address] Care Team Providers Care Psych Nurse Name Role Phone Unavailable Primary Care [...]
--- OUTSIDE RECORDS SUMMARY | 2024-05-31 07:31 | XMS_ITS | Encounter Summary ---
Author Organization [facility] Address [address] [place] [address] Care Team Providers Care Road Passenger Firer Name Role Phone Unavailable Primary Care Provider Unavailabl e Reason for Visit * Reason Onset Date Comments Labs Only 06/05/2020 covid pre op scr eening Encounter Details Date Type Department Care Team (Late st Contact Info) Description 06/05/2020 Orders Only [facility] - [address] [address] Elza Navarro DPM [address] [place] [phone] Osteomyelitis of left foot, unspecified type ([facility]) (Primary Dx) Social History Tobacco Use [...] rt-PCR Result Negative Negative 06/09/2020 16:34 EST [facility] Comment: This test [...] history, and epidemiological information. Performed on the AB Tasty Fusion instrument Performing Lab Tina [facility] Lab 06/09/2020 16:34 EST [facility] Swab ENTIRE NASOPHARYNX / Unknown Swab / Unknown 06/09/2020 9:28 EST 06/09/2020 9:28 EST us Elza Navarro DPM MICROBIOLOGY - GENERAL ORDERABL ES Final Result [facility] [address] [place] [address] documented in this encounter Visit Diagnoses Diagnosis Osteomyelitis of left foot, unspecified type (HCC-CMS)- Primary documented in this encounter
--- OUTSIDE RECORDS SUMMARY | 2024-05-31 07:32 | XMS_ITS | Encounter Summary ---
Author Organization [facility] Address [address] [place] [address] Care Team Providers Care Business Intelligence Administrator Name Role Phone Unavailable Primary Care [...]
--- OUTSIDE RECORDS SUMMARY | 2024-05-31 07:32 | XMS_ITS | Encounter Summary ---
Author Organization [facility] Address [address] [place] [address] Care Team Providers Care Herbarium Curator Name Role Phone Unavailable Primary Care Provider Unavailabl e Encounter Details Date Type Department Care Team ([facility] Contact Info) Description 03/21/2020 Documentation Visit [facility] - [address] [place] [address] Karthikeyan Crook, RN [address] [place] [address] Social History Tobacco Use Types Packs/Day Years [...] CROOK RN 03/21/2020 14:10 * [place], [facility] - 03/21/2020 3179 EDT Patient: Cristy Luo is a 35 [...]
--- OUTSIDE RECORDS SUMMARY | 2024-05-31 07:32 | XMS_ITS | Encounter Summary ---
Author Organization [facility] Address [address] [place] [address] Care Team Providers Care Lining Machine Operator Name Role Phone Carrington Calderon MD Primary Care Provi anders Abigail Díaz Unavailable Carmelo Hendrickson Unavailable Unavailable Abigail Díaz Unavailable Encounter Details Date Type Department Care Team (Late st Contact Info) Description 06/19/2020 Lab Requisition [facility] Pathology & Laboratory Medicine - [address] [address] Mushtaq Light, DO [address] [facility], [address] [place] [phone] Other acute osteomyelitis, left ankle and foot [...] 29(H) 0 - 20 mm/hr 07/01/2020 9:21 [facility] Blood VENOUS BLOOD / Unknown 04/08/2020 12:00 EST 06/19/2020 10:05 EST us Mushtaq Light DO HEMATOLOGY & PF4 ORDERABLES Final Result [facility] [address] [place] [address] * (ABNORMAL) COMPLETE BLOOD COUNT AND DIFFERENTIAL (04/08/2020 12:00 EST) WBC 13.10(H) 4.00 - 12.40 K/cmm 07/01/2020 9:20 [facility] RBC 4.42 3.86 - 5.04 M/cmm 07/01/2020 9:20 [facility] Hemoglobin 13.3 11.6 - 15.2 gm/dL 07/01/2020 9:20 [facility] HCT 38.1 34.9 - 44.4 % 07/01/2020 9:20 [facility] MCV 86 81 - 98 fl 07/01/2020 9:20 [facility] MCH 30.1 26.7 - 33.3 pg 07/01/2020 9:20 [facility] MCHC 34.9 32.1 - 35.9 gm/dL 07/01/2020 9:20 [facility] RDW-CV 12.5 <14.7 % 07/01/2020 9:20 [facility] RDW-SD 39.4 <50.4 fl 07/01/2020 9:20 [facility] PLT 336 141 - 377 K/cmm 07/01/2020 9:20 [facility] MPV 10.1 9.5 - 12.7 fl 07/01/2020 9:20 [facility] % Neutrophils 54.3 % 07/01/2020 9:20 [facility] % Lymphocytes 34.2 % 07/01/2020 9:20 [facility] % Monocytes 7.4 % 07/01/2020 9:20 [facility] % Eosinophils 3.4 % 07/01/2020 9:20 [facility] % Basophils 0.5 % 07/01/2020 9:20 [facility] % Immature Grans 0.2 % 07/01/19 9:20 [facility] Absolute Neutrophils 7.10 2.20 - 8.85 K/cmm 07/01/2020 9:20 [facility] Absolute Lymphocytes 4.48(H) 1.09 - 3.30 K/cmm 07/01/2020 9:20 [facility] Absolute Monocytes 0.97(H) 0.10 - 0.80 K/cmm 07/01/2020 9:20 [facility] Absolute Eosinophils 0.45 0.03 - 0.61 K/cmm 07/01/2020 9:20 [facility] ABS Basophils 0.07 0.01 - 0.11 K/cmm 07/01/2020 9:20 [facility] Absolute Immature Grans 0.03 0.00 - 0.06 K/cmm 07/01/2020 9:20 [facility] Type of Differential: Auto 07/01/2020 9:[address] [facility] Blood VENOUS BLOOD / Unknown 04/08/2020 12:00 EST 06/19/2020 10:05 EST Mushtaq Light DO PACKAGES & DNA PROBE ORDERA BLES Final Result Performing Organization Address City/[facility]/ZIP Co de Phone Number [facility] [address] [place] [address] * (ABNORMAL) CREATININE (04/08/2020 12:00 EST) Creatinine 0.42(L) 0.52 - 1.04 mg/dL 06/30/2020 12:[address] [facility] eGFR 133 >60 mL/min/1.7 3m2 06/30/2020 12:[address] [facility] Comment:eGFR calculated gil curtis CKD-EPI equation for non- Americans. Multiply eGFR by 1.16 for patients. Blood VENOUS BLOOD / Unknown 04/08/2020 12:00 EST 06/19/2020 10:05 EST Mushtaq Light DO CHEMISTRY & BLOOD GAS ORDER HAILEY Final Result Performing Organization Address [facility] Co de Phone Number [facility] [address] [place] [address] * C REACTIVE PROTEIN (04/08/2020 12:00 EST) C-Reactive Protein 7.7 <10.0 mg/L 06/30/2020 12:[address] [facility] Blood VENOUS BLOOD / Unknown 04/08/2020 12:00 EST 06/19/2020 10:05 EST Mushtaq Light DO CHEMISTRY & BLOOD GAS ORDER HAILEY Final Result Performing Organization Address City/[facility]/ZIP Co de Phone Number [facility] [address] [place] [address] documented in this encounter Visit Diagnoses Diagnosis Other acute osteomyelitis, left ankle and foot (HCC-CMS) documented in this encounter Additional Health Concerns Infection Onset Date Last Indicated Resolved Time R/O COVID-19 08/04/2020 08/04/2020 08/04/2020 11:4 0 EST documented as of this encounter Care Teams Lining Machine Operator Relationship Specialty Start Date End Date Carrington Calderon MD 1 [facility] [address] [place] [phone] PCP - General Internal Medicine - Primary Care 12/09/20 Abigail Díaz Conveyor Monitor 04/21/23 01/03/24 Carmelo Hendrickson Coordinator 12/01/23 Abigail Díaz Conveyor Monitor 01/04/24 documented as of this encounter
--- OUTSIDE RECORDS SUMMARY | 2024-05-31 07:32 | XMS_ITS | Encounter Summary ---
Author Organization [facility] Address [address] [place] [address] Care Team Providers Care Top Edge Beveler Name Role Phone Unavailable Primary Care Provider Unavailabl e Reason for Visit * Reason Onset Date Comments Follow-up 05/05/2020 Encounter Details Date Type Department Care Team (Late st Contact Info) Description 05/05/2020 Telephone [facility] Infectious Disease - [address] [phone] Mushtaq Light, DO 111 [facility], [address] [place] [phone] Follow-up Social History Tobacco Use [...] childcare. She is currently back home in [place] is clinically stable. Unfortunately her MRI showed osteomyelitis by report of the great toe. I called in a prescription for Augmentin 875 p.o. twice daily to her pharmacy in [place] and she will pick it up later [...]
--- OUTSIDE RECORDS SUMMARY | 2024-05-31 07:32 | XMS_ITS | Encounter Summary ---
Author Organization [facility] Address [address] [place] [address] Care Team Providers Care Crane Engineer Name Role Phone Unavailable Primary Care Provider Unavailabl e Encounter Details Date Type Department Care Team (Late st Contact Info) Description 03/18/2020 Orders Only [facility] Endocrinology - [facility] [address] [place] [address] Sara Zafar, GUSTAVO [address] [facility] [address] [place] [address] Type 2 diabetes mellitus with hyperglycemia, with long-term current use of insulin ([facility]) (Primary Dx) Social History Tobacco [...] hyperglycemia, with long-term current use of insulin ([facility])- Primary documented in this encounter
--- OUTSIDE RECORDS SUMMARY | 2024-05-31 07:32 | XMS_ITS | Encounter Summary ---
Author Organization [facility] Address [address] [place] [address] Care Team Providers Care Firefighter Type One Name Role Phone Unavailable Primary Care Provider Unavailabl e Reason for Visit * Reason Comments Telemedicine Video Visit Encounter Details Date Type Department Care Team (Late st Contact Info) Description 2020 13:00 EDT Telemedicine [facility] Infectious Disease - [address] [id number] Tonja Plascencia, GUSTAVO [address] [facility], [address] [place] [address] Diabetic foot infection ([facility]) (Primary Dx) Social History Tobacco [...] this encounter Progress Notes * Tonja Plascencia, MIDDLE STITCHER - 2020 1300 EDT Infectious Disease Clinic [...] Plascencia ?? Patient location: [place], State: [place] Estimated driving distance from [place]: 25 miles. Demographics HPI: Cristy Luo [...]
--- OUTSIDE RECORDS SUMMARY | 2024-05-31 07:32 | XMS_ITS | Encounter Summary ---
Author Organization [facility] Address [address] [place] [address] Care Team Providers Care Transmission System Operator Name Role Phone Unavailable Primary Care Provider Unavailabl e Reason for Visit * Reason Onset Date Comments Home Health 04/01/2020 Encounter Details Date Type Department Care Team (Late st Contact Info) Description 04/01/2020 Telephone [facility] Infectious Disease - [address] [id number] Mushtaq Light, DO [address] [facility], [address] [place] [address] Home Health Social History Tobacco [...] Telephone Encounter - Smita Green - 04/01/2020 3717 EDT Kylah from [facility] states that she did picc dressing change and clave, but was not able to get the extension tubing off. Would like a call back with plan. [phone]. documented in this encounter Plan of Treatment Not on file documented as of this encounter Visit Diagnoses Not on filedocumented in this encounter
--- OUTSIDE RECORDS SUMMARY | 2024-05-31 07:32 | XMS_ITS | Encounter Summary ---
Author Organization [facility] Address [address] [place] [address] Care Team Providers Care Preparation Plant Repairer Name Role Phone Unavailable Primary Care Provider Unavailabl e Reason for Visit * Reason Onset Date Comments Home Health 04/01/2020 Telemedicine Video Visit 04/01/2020 Encounter Details Date Type Department Care Team (Late st Contact Info) Description 04/01/2020 Telephone [facility] Adult Primary Care [address] [id number] Tonja Alejandro PA-C [address] [place] [address] [place] [phone] Home Health; Telemedicine Video Visit Social [...] Zoom appt ID: [id number] pw: [id number] * Telephone Encounter - Jesi Lua RN [...] 04/01/2020 1635 EDT Kylah is calling from [facility] to state patient [...]
--- OUTSIDE RECORDS SUMMARY | 2024-05-31 07:32 | XMS_ITS | Encounter Summary ---
Author Organization [facility] Address [address] [place] [address] Care Team Providers Care Medical Records Auditor Name Role Phone Unavailable Primary Care Provider Unavailabl e Encounter Details Date Type Department Care Team ([facility] Contact Info) Description 03/17/2020 Documentation Visit [facility]fusion [facility] - [address] [place], [place] [address] Marcel Bustamante Social History Tobacco Use Types [...] Entry Date Author No 03/06/2020 23:00 EDT Jonh Smith RN documented in this encounter Progress [...] 03/17/2020 14:59 * [place], [facility] - 03/17/2020 1217 EDT Patient: Cristy Luo [...]
--- OUTSIDE RECORDS SUMMARY | 2024-05-31 07:32 | XMS_ITS | Encounter Summary ---
Author Organization [facility] Address [address] [place] [address] Care Team Providers Care All Around Gear Machine Operator Name Role Phone Unavailable Primary Care Provider Unavailabl e Encounter Details Date Type Department Care Team ([facility] Contact Info) Description 03/31/2020 Documentation Visit [facility] Home Infusion Pharmacy - [address] [place], [place] [phone] Mina Peng RN Social History Tobacco Use [...] RN 03/31/2020 10:11 * Xander Wild Gu[place], [facility] - 03/31/2020 0955 EDT Patient: Cristy Luo [...] Will deliver to patients home tomorrow via [employer]. Will continue to monitor per care plan and reassess next week. GUIDO LI RPH 03/31/2020 16:11 documented in this encounter Plan of Treatment Not on file documented as of this encounter Visit Diagnoses Not on filedocumented in this encounter
--- OUTSIDE RECORDS SUMMARY | 2024-05-31 07:32 | XMS_ITS | Encounter Summary ---
Author Organization [facility] Address [address] [place] [address] Care Team Providers Care Hub Cutter Name Role Phone Carrington Calderon MD Primary Care Provi anders Abigail Díaz Unavailable Carmelo Hendrickson Unavailable Unavailable Abigail Díaz Unavailable [phone] Encounter Details Date Type Department Care Team (Late st Contact Info) Description 03/25/2020 Lab Requisition [facility] Pathology & Laboratory Medicine - [address] [phone] Mushtaq Light, DO [address] [facility], [address] [place] [phone] Encounter for other general examination Social History [...] 0 - 20 mm/hr 03/25/2020 20:[address] [facility] Comment:Note: Sample greater than 4 hours old (but less than 12 hours) when tested. If refrigerated, sample is stable when tested within 12 hours of collection. Blood VENOUS BLOOD / Unknown 03/25/2020 13:25 EDT 03/25/2020 19:10 EDT Mushtaq Light DO HEMATOLOGY & PF4 ORDERABLES Final Result [facility] [address] [place] [address] * (ABNORMAL) COMPLETE BLOOD COUNT AND DIFFERENTIAL (03/25/2020 13:25 EDT) WBC 13.46(H) 4.00 - 12.40 K/cmm 03/25/2020 19:[address] [facility] RBC 4.59 3.86 - 5.04 M/cmm 03/25/2020 19:[address] [facility] Hemoglobin 13.8 11.6 - 15.2 gm/dL 03/25/2020 19:[address] [facility] HCT 40.3 34.9 - 44.4 % 03/25/2020 19:[address] [facility] MCV 88 81 - 98 fl 03/25/2020 19:[address] [facility] MCH 30.1 26.7 - 33.3 pg 03/25/2020 19:[address] [facility] MCHC 34.2 32.1 - 35.9 gm/dL 03/25/2020 19:49 [facility] RDW-CV 12.4 <14.7 % 03/25/2020 19:49 [facility] RDW-SD 40.0 <50.4 fl 03/25/2020 19:49 [facility] PLT 357 141 - 377 K/cmm 03/25/2020 19:49 [facility] MPV 10.1 9.5 - 12.7 fl 03/25/2020 19:49 [facility] % Neutrophils 52.3 % 03/25/2020 19:49 [facility] % Lymphocytes 36.8 % 03/25/2020 19:49 [facility] % Monocytes 7.3 % 03/25/2020 19:49 [facility] % Eosinophils 2.9 % 03/25/2020 19:49 [facility] % Basophils 0.5 % 03/25/2020 19:49 [facility] % Immature Grans 0.2 % 03/25/20 19:49 [facility] Absolute Neutrophils 7.04 2.20 - 8.85 K/cmm 03/25/2020 19:49 [facility] Absolute Lymphocytes 4.95(H) 1.09 - 3.30 K/cmm 03/25/2020 19:49 [facility] Absolute Monocytes 0.98(H) 0.10 - 0.80 K/cmm 03/25/2020 19:49 [facility] Absolute Eosinophils 0.39 0.03 - 0.61 K/cmm 03/25/2020 19:49 [facility] ABS Basophils 0.07 0.01 - 0.11 K/cmm 03/25/2020 19:49 [facility] Absolute Immature Grans 0.03 0.00 - 0.06 K/cmm 03/25/2020 19:49 [facility] Type of Differential: Auto 03/25/2020 19:49 [facility] Blood VENOUS BLOOD / Unknown 03/25/2020 13:25 EDT 03/25/2020 19:10 EDT Mushtaq Light DO PACKAGES & DNA PROBE ORDERA BLES Final Result Performing Organization Address City/[facility] [address]/ZIP Co de Phone Number [facility] [address] [place] [address] * (ABNORMAL) CREATININE (03/25/2020 13:25 EDT) Creatinine 0.44(L) 0.52 - 1.04 mg/dL 03/25/2020 19:[address] [facility] eGFR 131 >60 mL/min/1.7 3m2 03/25/2020 19:[address] [facility] Comment:eGFR calculated gil curtis CKD-EPI equation for non- Americans. Multiply eGFR by 1.16 for patients. Blood VENOUS BLOOD / Unknown 03/25/2020 13:25 EDT 03/25/2020 19:10 EDT Mushtaq Light DO CHEMISTRY & BLOOD GAS ORDER HAILEY Final Result Performing Organization Address City/[facility] [address]/ZIP Co de Phone Number [facility] [address] [place] [address] * C REACTIVE PROTEIN (03/25/2020 13:25 EDT) C-Reactive Protein <7.0 <10.0 mg/L 03/25/2020 19:[address] [facility] Blood VENOUS BLOOD / Unknown 03/25/2020 13:25 EDT 03/25/2020 19:10 EDT Mushtaq Light DO CHEMISTRY & BLOOD GAS ORDER HAILEY Final Result [facility] [address] [place] [address] documented in this encounter Visit Diagnoses Diagnosis Encounter for other general examination documented in this encounter Additional Health Concerns Infection Onset Date Last Indicated Resolved Time R/O COVID-19 08/04/2020 08/04/2020 08/04/2020 11:4 0 EST documented as of this encounter Care Teams Hub Cutter Relationship Specialty Start Date End Date Carrington Calderon MD 1 [facility] [address] [place] [phone] PCP - General Internal Medicine - Primary Care 12/09/20 Abigail Díaz Publicity Director 04/21/23 01/03/24 Carmelo Hendrickson Coordinator 12/01/23 Abigail Díaz Publicity Director 01/04/24 documented as of this encounter
--- OUTSIDE RECORDS SUMMARY | 2024-05-31 07:32 | XMS_ITS | Encounter Summary ---
Author Organization [facility] Address [address] [place] [address] Care Team Providers Care Neurology Technician Name Role Phone Unavailable Primary Care Provider Unavailabl e Reason for Visit * Reason Comments Toe Injury diabetic foot ulcer on right great toe. admitted in march for IV abx x1week and then d/c with PO abx [id number]. last night noticed swelling, increased pain, redness and drainage from ulcer. dressed prior to arrival. 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, Level 1 [place] [address] Lalito You MD MPH [address] [phone] Obi Hancock MD [address] [phone] Diabetic foot infection (HCC-CMS) (Primary Dx); Type [...] Summaries * Obi Hancock MD - 05/04/2020 1319 EST Medicine Discharge Summary Primary Care Provider: Tonja Alejandro Attending Physician: Obi Hancock MD Admit Date: 05/03/2020 Discharge Date: 05/04/20 Disposition: Home Reason for Admission: left foot pain Principal/Final Diagnosis: Sepsis secondary to diabetic foot infection ([facility]) with osteomyelitis Additional Problems Managed in the Hospital Active Hospital Problems Diagnosis Date Noted ??? *Diabetic foot infection ([facility]) 03/06/2020 ??? 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 Cristy Luo??is a 35 year old??female??with a past medical history notable for insulin-dependent T2DM (c/b peripheral neuropathy and diabetic foot ulcer), recurrent migraine, TERI/MDD admitted 05/03/20 for worsening left foot pain, suspicious for recurrent diabetic foot infection. Of note, patient was recent admitted to [facility] for management of left great toe osteomyelitis between 03/06/20 to 03/12/20. During that time, she was started on cefazolin IV and metronidazole for six weeks. She completed her antibiotic course outpatient on 04/20/20. She complained of no symptoms during that time. On the night of 05/02/20, she noted worsening left foot pain and swelling after spending the day decorating her home for [employer]. She subsequently went to the [facility] ED for further evaluation. On admission, [...] Component Value Units Date/Time Bacterial Culture, Blood [[id number]] Collected: 05/04/20 0540 Lab Status: In process Specimen: Blood, Venous Updated: 05/04/20 0733 Bacterial Culture, Blood [[id number]] Collected: 05/04/2047 Lab Status: In process Specimen: Blood, Venous Updated: 05/04/20 0733 Hemoglobin A1c [[id number]] Collected: 05/03/202137 Lab Status: In process Specimen: Blood, Venous Updated: 05/04/20 0043 Upcoming Appointments May 14, 2020 14:30 Office Visit with Elza Navarro DPM [facility] - Paul (--) [address] [facility] [phone] Follow-up appointments and procedures Amb Consult/Follow Up [...] spending the day decorating her home for [employer]. 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 She was [...] 12/05/19- Spine- told years ago ??? Diabetes ([facility]) A1c 10.3 on 11/28/2019 ??? History [...] for 90 days. ??? lancets One Touch DelBitbrains or other brand compatible with lancing device [...] for now: 22U Lantus at bedtime. - STRATE[employer] PARTNERSHIP SPECIALIST gabapentin 100mg TID (just started this 3 days ago) VTE Prophylaxis Pharmacologic Prophylaxis: Enoxaparin (Lovenox) 40 mg SQ daily Code: Full, discussed w patient Discharge Plan Home or self care Consults Infectious Disease Admission Status Inpatient. Anticipated duration of hospitalization is greater than two midnights due to diabetic foot infection. Discussed with Dr. Avelino Banks MD 05/04/2020 0:11 Cosigned by Laltio You MD at 05/04/2020 2:08 EST Associated [...] weeks of cefazolin 2gm q8h and PO [id number] q8h, with dressing changes and short-interval podiatry [...] 12/05/19- Spine- told years ago ??? Diabetes ([facility]) A1c 10.3 on 11/28/2019 ??? 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 [...] x1week and then d/c with PO abx [id number]. last night noticed swelling, increased pain, redness [...] afterwards. She is followed by Dr. Navarro, recovery auditor. Last night, patient noticed swelling, increased 9/10 [...] Lalito You. Final diagnoses: Diabetic foot infection ([facility]) MDM MDM Number of Diagnoses or Management Options Diabetic foot infection ([facility]) Diagnosis management comments: 5 Amount and/or [...] EST Data: Pt left AMA d/t child and adolescent psychologist issues. Action: MD notified and spoke to the pt. Response: Pt signed AMA paperwork, left the unit at 2009. LIZZ RUIZ RN 05/04/2020 20:12 * Plan of Care - Jonelle Sun RN - 05/04/2020 1410 EST Problem: Daily Care Plan Goals Goal: Care Plan Documentation Flowsheets (Taken 05/04/2020 1751) Area of Focus: Discharge Plan Goal This [...] Education provided and verbalized back to this lyric writer by pt, expressing understanding of teaching. [...] 03/19/2020, there has been interval increase in [id number] in the first proximal phalanx. There is [...] Growth at 5 days 05/09/2020 7:45 EST [facility] Blood VENOUS BLOOD / Unknown Blood Culture / Unknown 05/04/2020 5:47 EST 05/04/2020 7:33 EST Sara Banks MD MICROBIOLOGY - GENERAL ORDERA BLES Final Result [facility] [address] [place] [address] * (ABNORMAL) BACTERIAL CULTURE, BLOOD (05/04/2020 5:40 EST) Organism ID Corynebacterium species(AA) 05/06/2020 14:29 [facility] Comment:Detected in the aero bic bottle at 37 hours Blood VENOUS BLOOD / Unknown Blood Culture / Unknown 05/04/2020 5:40 EST 05/04/2020 7:33 EST us Sara Banks MD MICROBIOLOGY - GENERAL ORDERA BLES Final Result [facility] [address] [place] [phone] * (ABNORMAL) COMPLETE BLOOD COUNT (05/04/2020 5:32 EST) WBC 13.43(H) 4.00 - 12.40 K/cmm 05/04/2020 6:24 [facility] RBC 4.27 3.86 - 5.04 M/cmm 05/04/2020 6:24 [facility] Hemoglobin 13.1 11.6 - 15.2 gm/dL 05/04/2020 6:24 [facility] HCT 38.3 34.9 - 44.4 % 05/04/2020 6:24 [facility] MCV 90 81 - 98 fl 05/04/2020 6:24 [facility] MCH 30.7 26.7 - 33.3 pg 05/04/2020 6:24 [facility] MCHC 34.2 32.1 - 35.9 gm/dL 05/04/2020 6:24 [facility] RDW-CV 12.4 <14.7 % 05/04/2020 6:24 [facility] RDW-SD 40.6 <50.4 fl 05/04/2020 6:24 [facility] PLT 335 141 - 377 K/cmm 05/04/2020 6:24 [facility] MPV 10.0 9.5 - 12.7 fl 05/04/2020 6:24 [facility] Blood VENOUS BLOOD / Unknown Venipuncture / Unknown 05/04/2020 5:32 EST 05/04/2020 6:11 EST Lalito You MD MPH HEMATOLOGY & PF4 ORDERABLES Final Result Performing Organization Address [facility] Co de Phone Number [facility] [address] [place] [address] * (ABNORMAL) CREATININE (05/04/2020 5:32 EST) Creatinine 0.46(L) 0.52 - 1.04 mg/dL 05/04/2020 6:52 EST [facility] eGFR 129 >60 mL/min/1.7 3m2 05/04/2020 6:52 EST [facility] Comment:eGFR calculated gil g CKD-EPI equation for non- Americans. Multiply eGFR by 1.16 for patients. Blood VENOUS BLOOD / Unknown Venipuncture / Unknown 05/04/2020 5:32 EST 05/04/2020 6:22 EST us Lalito You MD MPH CHEMISTRY & BLOOD GAS ORDER HAILEY Final Result Performing Organization Address [facility] Co de Phone Number [facility] [address] [place] [address] * BUN (05/04/2020 5:32 EST) BUN 17 10 - 26 mg/dL 05/04/2020 6:52 EST [facility] Blood VENOUS BLOOD / Unknown Venipuncture / Unknown 05/04/2020 5:32 EST 05/04/2020 6:22 EST us Lalito You MD MPH CHEMISTRY & BLOOD GAS ORDER HAILEY Final Result Performing Organization Address [facility]/ZIP Co de Phone Number [facility] [address] [place] [address] * ELECTROLYTES (05/04/2020 5:32 EST) Sodium 137 136 - 145 mEq/L 05/04/2020 6:52 EST [facility] Potassium 4.4 3.5 - 5.0 mEq/L 05/04/2020 6:52 EST [facility] Chloride 104 96 - 110 mEq/L 05/04/2020 6:52 EST [facility] CO2 Total 24 22 - 32 mEq/L 05/04/2020 6:52 EST [facility] Blood VENOUS BLOOD / Unknown Venipuncture / Unknown 05/04/2020 5:32 EST 05/04/2020 6:22 EST Lalito You MD MPH CHEMISTRY & BLOOD GAS ORDER HAILEY Final Result Performing Organization Address [facility]/ZIP Co de Phone Number [facility] [address] [place] [address] * COVID-19 TEST [facility] PCR (05/03/2020 23:59 EST) Swab ENTIRE NASOPHARYNX / Unknown Swab / Unknown 05/03/2020 23:59 EST 05/04/2020 0:01 EST Fran Barbosa MD MICROBIOLOGY - GENERA L ORDERABLES Final Result Performing Organization Address [facility] Co de Phone Number [facility] [address] [place] [address] * COVID-19 TESTING (05/03/2020 23:59 EST) COVID-19 rt-PCR Result Negative Negative 05/04/2020 9:49 EST [facility] Comment: This test has [...] and epidemiological information. Performed on the Hologic Berry Fusion instrument Performing Lab Berry [facility] 05/04/2020 9:49 EST [facility] Swab ENTIRE NASOPHARYNX / Unknown Swab / Unknown 05/03/2020 23:59 EST 05/04/2020 0:01 EST us Fran Barbosa MD MICROBIOLOGY - GENERA L ORDERABLES Final Result [facility] [address] [place] [address] * XR FOOT LEFT 3 OR MORE [...] A1c 9.1(H) <5.7 % 05/05/2020 8:32 EST [facility] Comment: Glycemic Status References: [...] Avg Glucose 214 mg/dL 0 8:32 EST [facility] Comment:The eAG represents t he A1c result expressed as average glucose in mg/dL. Blood VENOUS BLOOD / Unknown Venipuncture / Unknown 05/03/2020 21:38 EST 05/03/2020 21:55 EST us Sara Banks MD CHEMISTRY & BLOOD GAS ORDERAB LES Final Result [facility] [address] [place] [address] * (ABNORMAL) SED. RATE:MARLYN (05/03/2020 21:38 EST) Sed Rate 36(H) 0 - 20 mm/hr 05/03/2020 22:09 [facility] Blood VENOUS BLOOD / Unknown Venipuncture / Unknown 05/03/2020 21:38 EST 05/03/2020 21:55 EST Fran Barbosa MD HEMATOLOGY & PF4 ORDE RABLES Final Result Performing Organization Address City/[facility]/ZIP Co de Phone Number [facility] [address] [place] [address] * (ABNORMAL) C REACTIVE PROTEIN (05/03/2020 21:38 EST) C-Reactive Protein 39.2(H) <10.0 mg/L 05/03/2020 22:19 [facility] Blood VENOUS BLOOD / Unknown Venipuncture / Unknown 05/03/2020 21:38 EST 05/03/2020 21:55 EST Fran Barbosa MD CHEMISTRY & BLOOD GAS ORDERABLES Final Result Performing Organization Address City/[facility]/ZIP Co de Phone Number [facility] [address] [place] [address] * (ABNORMAL) COMPLETE BLOOD COUNT AND DIFFERENTIAL (05/03/2020 21:38 EST) WBC 16.98(H) 4.00 - 12.40 K/cmm 05/03/2020 22:03 [facility] RBC 4.38 3.86 - 5.04 M/cmm 05/03/2020 22:03 [facility] Hemoglobin 13.7 11.6 - 15.2 gm/dL 05/03/2020 22:03 [facility] HCT 38.9 34.9 - 44.4 % 05/03/2020 22:03 [facility] MCV 89 81 - 98 fl 05/03/2020 22:03 [facility] MCH 31.3 26.7 - 33.3 pg 05/03/2020 22:03 [facility] MCHC 35.2 32.1 - 35.9 gm/dL 05/03/2020 22:03 [facility] RDW-CV 12.5 <14.7 % 05/03/2020 22:03 [facility] RDW-SD 41.1 <50.4 fl 05/03/2020 22:03 [facility] PLT 365 141 - 377 K/cmm 05/03/2020 22:03 [facility] MPV 9.7 9.5 - 12.7 fl 05/03/2020 22:03 [facility] % Neutrophils 56.7 % 05/03/2020 22:03 [facility] % Lymphocytes 29.4 % 05/03/2020 22:03 [facility] % Monocytes 8.8 % 05/03/2020 22:03 [facility] % Eosinophils 4.4 % 05/03/2020 22:03 [facility] % Basophils 0.5 % 05/03/2020 22:03 [facility] % Immature Grans 0.2 % 05/03/20 20 22:03 [facility] Absolute Neutrophils 9.61(H) 2.20 - 8.85 K/cmm 05/03/2020 22:03 [facility] Absolute Lymphocytes 5.00(H) 1.09 - 3.30 K/cmm 05/03/2020 22:03 [facility] Absolute Monocytes 1.49(H) 0.10 - 0.80 K/cmm 05/03/2020 22:03 [facility] Absolute Eosinophils 0.75(H) 0.03 - 0.61 K/cmm 05/03/2020 22:03 [facility] ABS Basophils 0.09 0.01 - 0.11 K/cmm 05/03/2020 22:03 [facility] Absolute Immature Grans 0.04 0.00 - 0.06 K/cmm 05/03/2020 22:03 [facility] Type of Differential: Auto 05/03/2020 22:03 [facility] Blood VENOUS BLOOD / Unknown Venipuncture / Unknown 05/03/2020 21:38 EST 05/03/2020 21:55 EST us Fran Barbosa MD PACKAGES & DNA PROBE ORDERABLES Final Result [facility] [address] [place] [phone] documented in this encounter Visit Diagnoses Diagnosis [...] diabetic foot infection, ID Consult: No, STAT 5995 (Given - Provider: Mar Aguirre RN) PRN [...] 2 mg 1 05/04/2020 polyethylene glycol 3350 (NC RALAX) packet 17 g 1 05/04/2020 Admission Count Last Ordered Date First Orde red Date ADMIT TO INPATIENT 1 05/03/2020 Transfer Count Last Ordered Date First Orde red Date TEACHING SERVICE 1 05/04/2020 ED BED REQUEST 1 05/03/2020 Discharge Count Last Ordered Date First Orde red Date DISCHARGE PATIENT 1 05/04/2020 documented in this encounter
--- OUTSIDE RECORDS SUMMARY | 2024-05-31 07:32 | XMS_ITS | Encounter Summary ---
Author Organization Health system Address [address] [place] [address] Care Team Providers Care Casino Accountant Name Role Phone Unavailable Primary Care Provider Unavailabl e Reason for Visit * Reason Comments Telemedicine Video Visit Encounter Details Date Type Department Care Team (Late st Contact Info) Description 03/27/2020 13:30 EDT Telemedicine [facility] Infectious Disease - [address] [id number] Tonja Plascencia NP 111 [facility], [address] [place] [address] Osteomyelitis of great toe of [...] this encounter Progress Notes * Tonja Plascencia, PRIZE JACKER - 03/27/2020 1330 EDT Infectious Disease Clinic [...] Plascencia ?? Patient location: [place], State: [place] Estimated driving distance from [place]: 25 miles. Demographics HPI: Cristy Luo [...]
--- OUTSIDE RECORDS SUMMARY | 2024-05-31 07:32 | XMS_ITS | Encounter Summary ---
Author Organization [facility] Address [address] [place] [address] Care Team Providers Care Event Manager Name Role Phone Unavailable Primary Care Provider Unavailabl e Reason for Visit * Reason Onset Date Comments Home Health 03/25/2020 Encounter Details Date Type Department Care Team (Late st Contact Info) Description 03/25/2020 Telephone [facility] Adult Primary Care - [address] [id number] Tonja Alejandro PA-C Paul [facility] [address] [place] [phone] Home Health Social History Tobacco Use [...] - 03/25/2020 1606 EDT Kylah called from [facility] stating Patients Heart Rate has been elevated at 100-120 per min documented in this encounter Plan of Treatment Not on file documented as of this encounter Visit Diagnoses Not on filedocumented in this encounter
--- OUTSIDE RECORDS SUMMARY | 2024-05-31 07:32 | XMS_ITS | Encounter Summary ---
Author Organization [facility] Address [address] [place] [address] Care Team Providers Care Funeral Pre Need Consultant Name Role Phone Carrington Calderon MD Primary Care Provi anders Abigail Díaz Unavailable Carmelo Hendrickson Unavailable Unavailable Abigail Díaz Unavailable Encounter Details Date Type Department Care Team (Late st Contact Info) Description 03/18/2020 Lab Requisition [facility] Pathology & Laboratory Medicine - [address] [phone] Mushtaq Light, DO 111 [facility], [address] [place] [phone] Encounter for other general examination Social History [...] 0 - 20 mm/hr 03/18/2020 18:51 EDT [facility] Comment:Note: Sample greater than 4 hours old (but less than 12 hours) when tested. If refrigerated, sample is stable when tested within 12 hours of collection. Blood VENOUS BLOOD / Unknown Non-Lab Collect / Unknown 03/18/2020 10:35 EDT 03/18/2020 16:41 EDT Mushtaq Lihgt DO HEMATOLOGY & PF4 ORDERABLES Final Result [facility] [address] [place] [address] * (ABNORMAL) COMPLETE BLOOD COUNT AND DIFFERENTIAL (03/18/2020 10:35 EDT) WBC 11.64 4.00 - 12.40 K/cmm 03/18/2020 17:17 EDT [facility] RBC 4.54 3.86 - 5.04 M/cmm 03/18/2020 17:17 T [facility] Hemoglobin 13.9 11.6 - 15.2 gm/dL 03/18/2020 17:17 T [facility] HCT 40.9 34.9 - 44.4 % 03/18/2020 17:17 T [facility] MCV 90 81 - 98 fl 03/18/2020 17:17 EDT [facility] MCH 30.6 26.7 - 33.3 pg 03/18/2020 17:17 T [facility] MCHC 34.0 32.1 - 35.9 gm/dL 03/18/2020 17:17 [facility] RDW-CV 12.4 <14.7 % 03/18/2020 17:17 [facility] RDW-SD 40.8 <50.4 fl 03/18/2020 17:17 [facility] PLT 462(H) 141 - 377 K/cmm 03/18/2020 17:17 [facility] MPV 10.5 9.5 - 12.7 fl 03/18/2020 17:17 [facility] % Neutrophils 55.0 % 03/18/2020 17:17 [facility] % Lymphocytes 33.0 % 03/18/2020 17:17 [facility] % Monocytes 7.4 % 03/18/2020 17:17 [facility] % Eosinophils 3.4 % 03/18/2020 17:17 [facility] % Basophils 0.7 % 03/18/2020 17:17 [facility] % Immature Grans 0.5 % 03/18/20 20 17:17 [facility] Absolute Neutrophils 6.41 2.20 - 8.85 K/cmm 03/18/2020 17:17 [facility] Absolute Lymphocytes 3.84(H) 1.09 - 3.30 K/cmm 03/18/2020 17:17 [facility] Absolute Monocytes 0.86(H) 0.10 - 0.80 K/cmm 03/18/2020 17:17 [facility] Absolute Eosinophils 0.39 0.03 - 0.61 K/cmm 03/18/2020 17:17 [facility] ABS Basophils 0.08 0.01 - 0.11 K/cmm 03/18/2020 17:17 [facility] Absolute Immature Grans 0.06 0.00 - 0.06 K/cmm 03/18/2020 17:17 [facility] Type of Differential: Auto 03/18/2020 17:17 [facility] Blood VENOUS BLOOD / Unknown Non-Lab Collect / Unknown 03/18/2020 10:35 EDT 03/18/2020 16:41 EDT Mushtaq Light DO PACKAGES & DNA PROBE ORDERA BLES Final Result Performing Organization Address [facility]/ZIP Co de Phone Number [facility] [address] [place] [address] * (ABNORMAL) CREATININE (03/18/2020 10:35 EDT) Creatinine 0.41(L) 0.52 - 1.04 mg/dL 03/18/2020 17:17 EDT [facility] eGFR 135 >60 mL/min/1.7 3m2 03/18/2020 17:17 EDT [facility] Comment:eGFR calculated gil curtis CKD-EPI equation for non- Americans. Multiply eGFR by 1.16 for patients. Blood VENOUS BLOOD / Unknown Non-Lab Collect / Unknown 03/18/2020 10:35 EDT 03/18/2020 16:41 EDT us Mushtaq Light DO CHEMISTRY & BLOOD GAS ORDER HAILEY Final Result Performing Organization Address [facility] Co de Phone Number [facility] [address] [place] [address] * C REACTIVE PROTEIN (03/18/2020 10:35 EDT) C-Reactive Protein <7.0 <10.0 mg/L 03/18/2020 17:17 EDT [facility] Blood VENOUS BLOOD / Unknown Non-Lab Collect / Unknown 03/18/2020 10:35 EDT 03/18/2020 16:41 EDT Mushtaq Light DO CHEMISTRY & BLOOD GAS ORDER HAILEY Final Result [facility] [address] [place] [address] documented in this encounter Visit Diagnoses Diagnosis Encounter for other general examination documented in this encounter Additional Health Concerns Infection Onset Date Last Indicated Resolved Time R/O COVID-19 08/04/2020 08/04/2020 08/04/2020 11:4 0 EST documented as of this encounter Care Teams Funeral Pre Need Consultant Relationship Specialty Start Date End Date Carrington Calderon MD 1 [facility] [address] [place] [phone] PCP - General Internal Medicine - Primary Care 12/09/20 Abigail Díaz Rfid Strategist 04/21/23 01/03/24 Carmelo Hendrickson Coordinator 12/01/23 Abigail Díaz Rfid Strategist 01/04/24 documented as of this encounter
--- OUTSIDE RECORDS SUMMARY | 2024-05-31 07:32 | XMS_ITS | Encounter Summary ---
Author Organization [facility] Address [address] [place] [address] Care Team Providers Care Internet Marketing Director Name Role Phone Unavailable Primary Care Provider Unavailabl e Reason for Visit * Reason Comments Follow-up Encounter Details Date Type Department Care Team (Latest Contact Info) Description 04/07/2020 10:00 EST Office Visit [facility] [place] [address] Nurse, Id, RN Osteomyelitis of great toe [...]
--- OUTSIDE RECORDS SUMMARY | 2024-05-31 07:32 | XMS_ITS | Encounter Summary ---
Author Organization [facility] Address [address] [place] [address] Care Team Providers Care Mill Operator Helper Name Role Phone Unavailable Primary [...]
--- OUTSIDE RECORDS SUMMARY | 2024-05-31 07:32 | XMS_ITS | Encounter Summary ---
Author Organization [facility] Address [address] [place] [address] Care Team Providers Care Special Education Kindergarten Teacher Name Role Phone Unavailable Primary Care Provider Unavailabl e Reason for Visit * Reason Comments Follow-up Encounter Details Date Type Department Care Team (Late st Contact Info) Description 04/18/2020 10:30 EST Office Visit [facility] Foot & Ankle Program - [address] [address] Elza Navarro DPM [address] [place] [phone] Ulcer of great toe, left, with necrosis of bone ([facility]) (Primary Dx); Type 2 diabetes mellitus with diabetic polyneuropathy, with long-term current use of insulin ([facility]) Social History Tobacco Use Types Packs/Day [...] Navarro DPM - 04/18/2020 0000 EST [facility] FOOT AND ANKLE PROGRAM PROGRESS / [...] Elza Navarro DPM / SWAPNIL Dictation ID: [id number] cc: documented in this encounter Plan of Treatment Not on file documented as of this encounter Visit Diagnoses Diagnosis Ulcer of great toe, left, with necrosis of bone ([facility])- Primary Type 2 diabetes mellitus with diabetic polyneuropathy, with long-term current use of insulin ([facility]) documented in this encounter
--- OUTSIDE RECORDS SUMMARY | 2024-05-31 07:32 | XMS_ITS | Encounter Summary ---
Author Organization [facility] Address [address] [place] [address] Care Team Providers Care Phone Banker Name Role Phone Unavailable Primary Care Provider Unavailabl e Reason for Visit * Reason Comments Pain Follow-up Encounter Details Date Type Department Care Team (Late st Contact Info) Description 04/30/2020 8:30 EST Office Visit [facility] Foot & Ankle Program - [address] [address] Elza Navarro DPM [address] [place] [address] Ulcer of great toe, left, with necrosis of bone ([facility]) (Primary Dx); Type 2 diabetes mellitus with diabetic polyneuropathy, with long-term current use of insulin ([facility]) Social History Tobacco Use Types Packs/Day [...] Osteomyelitis of great toe of left foot ([facility]) 03/12/2020 Priority: Medium ??? Diabetic foot ulcer associated with diabetes mellitus due to underlying condition ([facility]) 03/07/2020 Priority: Medium ??? Diabetic foot infection ([facility]) 03/06/2020 Priority: Medium ??? Diabetic foot ulcer ([facility]) 03/06/2020 Priority: Medium ??? Cellulitis of great toe of left foot 11/26/2019 Priority: Medium ??? Chronic midline low back pain without sciatica 11/26/2019 Priority: Medium ??? Chronic left ear pain 09/04/2015 Priority: Medium ??? Encounter for sterilization 11/20/2019 ??? Family history of rheumatoid arthritis 09/04/2015 ??? Type 2 diabetes mellitus ([facility]) 09/03/2015 ??? Anxiety and depression 05/12/2010 ??? Migraine with aura and without status migrainosus, not intractable Past Medical History: Diagnosis Date ??? Anxiety ??? Arthritis 12/05/19- Spine- told years ago ??? Diabetes ([facility]) A1c 10.3 on 11/28/2019 ??? History of [...] 27 mL 3 ??? lancets One Touch DelStartist or other brand compatible with lancing device [...] left, with necrosis of bone ([facility]) 2. Type 2 diabetes mellitus with diabetic polyneuropathy, with long-term current use of insulin ([facility]) No orders of the defined types were [...] speech recognition software or keyboard data collection associate techniques. Minor irregularities or keyboarding misprints may be present documented in this encounter Plan of Treatment Not on file documented as of this encounter Visit Diagnoses Diagnosis Ulcer of great toe, left, with necrosis of bone ([facility])- Primary Type 2 diabetes mellitus with diabetic polyneuropathy, with long-term current use of insulin ([facility]) documented in this encounter Historical Medications * This list may reflect changes made after this encounter. gabapentin (NEURONTIN) 100 mg capsule Take 100 mg by mouth 3 times daily. 06/05/2020 added in this encounter Orders Equipment Count Last Ordered Date First Orde red Date GENERIC ORTHO VENDOR DME 1 04/30/2020 documented in this encounter
--- OUTSIDE RECORDS SUMMARY | 2024-05-31 07:32 | XMS_ITS | Encounter Summary ---
Author Organization [facility] Address [address] [place] [address] Care Team Providers Care Caul Puller Name Role Phone Carrington Calderon MD Primary Care Provi anders Abigail Díaz Unavailable Carmelo Hendrickson Unavailable Unavailable Abigail Díaz Unavailable [phone] Encounter Details Date Type Department Care Team (Late st Contact Info) Description 04/01/2020 Lab Requisition [facility] Pathology & Laboratory Medicine - [address] [phone] Mushtaq Light, DO [address] [facility], [address] [place] [phone] Encounter for other general examination Social History [...] (ABNORMAL) SED. RATE:WESTERGREN (04/01/2020 10:10 EDT) Pathologist [facility] Sed Rate 30(H) 0 - 20 mm/hr 04/01/2020 20:32 EDT [facility] Comment:Note: Sample greater than 4 hours old (but less than 12 hours) when tested. If refrigerated, sample is stable when tested within 12 hours of collection. Blood VENOUS BLOOD / Unknown Non-Lab Collect / Unknown 04/01/2020 10:10 EDT 04/01/2020 18:42 EDT Mushtaq Light DO HEMATOLOGY & PF4 ORDERABLES Final Result [facility] [address] [place] [address] * (ABNORMAL) COMPLETE BLOOD COUNT AND DIFFERENTIAL (04/01/2020 10:10 EDT) Pathologist [facility] WBC 10.42 4.00 - 12.40 K/cmm 04/01/2020 19:15 EDT [facility] RBC 4.54 3.86 - 5.04 M/cmm 04/01/2020 19:15 T [facility] Hemoglobin 13.7 11.6 - 15.2 gm/dL 04/01/2020 19:15 T [facility] HCT 40.9 34.9 - 44.4 % 04/01/2020 19:15 T [facility] MCV 90 81 - 98 fl 04/01/2020 19:15 EDT [facility] MCH 30.2 26.7 - 33.3 pg 04/01/2020 19:15 T [facility] MCHC 33.5 32.1 - 35.9 gm/dL 04/01/2020 19:15 [facility] RDW-CV 12.4 <14.7 % 04/01/2020 19:15 [facility] RDW-SD 40.9 <50.4 fl 04/01/2020 19:15 [facility] PLT 336 141 - 377 K/cmm 04/01/2020 19:15 [facility] MPV 10.5 9.5 - 12.7 fl 04/01/2020 19:15 [facility] % Neutrophils 48.0 % 04/01/2020 19:15 [facility] % Lymphocytes 38.5 % 04/01/2020 19:15 [facility] % Monocytes 8.1 % 04/01/2020 19:15 [facility] % Eosinophils 4.5 % 04/01/2020 19:15 [facility] % Basophils 0.7 % 04/01/2020 19:15 [facility] % Immature Grans 0.2 % 04/01/20 20 19:15 [facility] Absolute Neutrophils 5.01 2.20 - 8.85 K/cmm 04/01/2020 19:15 [facility] Absolute Lymphocytes 4.01(H) 1.09 - 3.30 K/cmm 04/01/2020 19:15 [facility] Absolute Monocytes 0.84(H) 0.10 - 0.80 K/cmm 04/01/2020 19:15 [facility] Absolute Eosinophils 0.47 0.03 - 0.61 K/cmm 04/01/2020 19:15 [facility] ABS Basophils 0.07 0.01 - 0.11 K/cmm 04/01/2020 19:15 [facility] Absolute Immature Grans 0.02 0.00 - 0.06 K/cmm 04/01/2020 19:15 [facility] Type of Differential: Auto 04/01/2020 19:15 [facility] Blood VENOUS BLOOD / Unknown Non-Lab Collect / Unknown 04/01/2020 10:10 EDT 04/01/2020 18:42 EDT Mushtaq Light DO PACKAGES & DNA PROBE ORDERA BLES Final Result [facility] [address] [place] [address] * (ABNORMAL) CREATININE (04/01/2020 10:10 EDT) Creatinine 0.37(L) 0.52 - 1.04 mg/dL 04/01/2020 19:10 EDT [facility] eGFR 139 >60 mL/min/1.7 3m2 04/01/2020 19:10 EDT [facility] Comment:eGFR calculated gil curtis CKD-EPI equation for non- Americans. Multiply eGFR by 1.16 for patients. Blood VENOUS BLOOD / Unknown Non-Lab Collect / Unknown 04/01/2020 10:10 EDT 04/01/2020 18:42 EDT Mushtaq Light DO CHEMISTRY & BLOOD GAS ORDER HAILEY Final Result Performing Organization Address [facility]/ZIP Co de Phone Number [facility] [address] [place] [address] * C REACTIVE PROTEIN (04/01/2020 10:10 EDT) C-Reactive Protein <7.0 <10.0 mg/L 04/01/2020 19:10 EDT [facility] Blood VENOUS BLOOD / Unknown Non-Lab Collect / Unknown 04/01/2020 10:10 EDT 04/01/2020 18:42 EDT Mushtaq Light DO CHEMISTRY & BLOOD GAS ORDER HAILEY Final Result [facility] [address] [place] [address] documented in this encounter Visit Diagnoses Diagnosis Encounter for other general examination documented in this encounter Additional Health Concerns Infection Onset Date Last Indicated Resolved Time R/O COVID-19 08/04/2020 08/04/2020 08/04/2020 11:4 0 EST documented as of this encounter Care Teams Caul Puller Relationship Specialty Start Date End Date Carrington Calderon MD 1 [facility] [address] [place] [phone] PCP - General Internal Medicine - Primary Care 12/09/20 Abigail Díaz Air Twist Operator 04/21/23 01/03/24 Carmelo Hendrickson Coordinator 12/01/23 Abigail Díaz Air Twist Operator 01/04/24 documented as of this encounter
--- OUTSIDE RECORDS SUMMARY | 2024-05-31 07:32 | XMS_ITS | Encounter Summary ---
Author Organization [facility] Address [address] [place] [address] Care Team Providers Care Group Therapist Name Role Phone Unavailable Primary Care Provider Unavailabl e Reason for Visit * Reason Onset Date Comments Medications Refill 03/21/2020 Encounter Details Date Type Department Care Team (Late st Contact Info) Description 03/21/2020 Refill [facility] Endocrinology - [facility] [address] [place], [place] [phone] Sara Zafar NP [address] [facility] [address] [place] [address] Medications Refill Social History Tobacco [...] Telephone Encounter - Foreign Parr - 03/21/2020 0888 EDT Medication(s) Requested Novolog 9 units after [...]
--- OUTSIDE RECORDS SUMMARY | 2024-05-31 07:32 | XMS_ITS | Encounter Summary ---
Author Organization [facility] Address [address] [place] [address] Care Team Providers Care Product Marketing Engineer Name Role Phone Carrington Calderon MD Primary Care Provi anders Abigail Díaz Unavailable [phone] Carmelo Hendrickson Unavailable Unavailable Abigail Díaz Unavailable Encounter Details Date Type Department Care Team (Late st Contact Info) Description 06/23/2020 Lab Requisition [facility] Pathology & Laboratory Medicine - [address] [address] Mushtaq Light, DO 111 [facility], [address] [place] [phone] Other chronic hematogenous osteomyelitis, left ankle and [...] Answer Entry Date Author No 05/04/2020 0:28 Sylvai Alejandro RN documented in this encounter Plan [...] EST) % Neutrophils 48.0 % 07/03/2020 12:50 [facility] % Bands 1.0 % 07/03/2020 12:50 [facility] % Lymphocytes 40.0 % 07/03/2020 12:50 [facility] % Atypical Lymphocytes 4.0 % 07/03/2020 12:50 [facility] % Monocytes 5.0 % 07/03/2020 12:50 [facility] % Eosinophils 1.0 % 07/03/2020 12:50 [facility] % Basophils 1.0 % 07/03/2020 12:50 [facility] Absolute Neutrophils 6.40 2.20 - 8.85 K/cmm 07/03/2020 12:50 [facility] Absolute Bands 0.13 K/cmm 07/03/2020 12:50 [facility] Absolute Lymphocytes 5.33(H) 1.09 - 3.30 K/cmm 07/03/2020 12:50 [facility] Absolute Atypical Lymphocytes 0.53 K/cmm 07/03/2020 12:50 [facility] Absolute Monocytes 0.67 0.10 - 0.80 K/cmm 07/03/2020 12:50 [facility] Absolute Eosinophils 0.13 0.03 - 0.61 K/cmm 07/03/2020 12:50 [facility] ABS Basophils 0.13(H) 0.01 - 0.11 K/cmm 07/03/2020 12:50 [facility] Blood VENOUS BLOOD / Unknown 04/15/2020 11:28 EST 06/23/2020 15:27 EST Mushtaq Light DO HEMATOLOGY & PF4 ORDERABLES Final Result Performing Organization Address City/[facility]/ZIP Co de Phone Number [facility] [address] [place] [address] * (ABNORMAL) SED. RATE:ILEANAERGREN (04/15/2020 11:28 EST) Sed Rate 25(H) 0 - 20 mm/hr 07/03/2020 12:51 [facility] Blood VENOUS BLOOD / Unknown 04/15/2020 11:28 EST 06/23/2020 15:27 EST Mushtaq Light DO HEMATOLOGY & PF4 ORDERABLES Final Result Performing Organization Address City/[facility]/ZIP Co de Phone Number [facility] [address] [place] [address] * (ABNORMAL) COMPLETE BLOOD COUNT AND DIFFERENTIAL (04/15/2020 11:28 EST) WBC 13.33(H) 4.00 - 12.40 K/cmm 07/03/2020 12:50 [facility] RBC 4.38 3.86 - 5.04 M/cmm 07/03/2020 12:50 [facility] Hemoglobin 13.5 11.6 - 15.2 gm/dL 07/03/2020 12:50 [facility] HCT 38.6 34.9 - 44.4 % 07/03/2020 12:50 [facility] MCV 88 81 - 98 fl 07/03/2020 12:50 [facility] MCH 30.8 26.7 - 33.3 pg 07/03/2020 12:50 [facility] MCHC 35.0 32.1 - 35.9 gm/dL 07/03/2020 12:50 [facility] RDW-CV 12.5 <14.7 % 07/03/2020 12:50 [facility] RDW-SD 40.6 <50.4 fl 07/03/2020 12:50 [facility] PLT 344 141 - 377 K/cmm 07/03/2020 12:50 [facility] MPV 9.8 9.5 - 12.7 fl 07/03/2020 12:50 [facility] Type of Differential: Manual 07/03/2020 12:50 [facility] Blood VENOUS BLOOD / Unknown 04/15/2020 11:28 EST 06/23/2020 15:27 EST Mushtaq Light DO PACKAGES & DNA PROBE ORDERA BLES Final Result [facility] [address] [place] [address] * (ABNORMAL) CREATININE (04/15/2020 11:28 EST) Creatinine 0.43(L) 0.52 - 1.04 mg/dL 06/30/2020 12:01 [facility] eGFR 132 >60 mL/min/1.7 3m2 06/30/2020 12:01 [facility] Comment:eGFR calculated gil curtis CKD-EPI equation for non- Americans. Multiply eGFR by 1.16 for patients. Blood VENOUS BLOOD / Unknown 04/15/2020 11:28 EST 06/23/2020 15:27 EST us Mushtaq Light DO CHEMISTRY & BLOOD GAS ORDER HAILEY Final Result Performing Organization Address City/[facility]/ZIP Co de Phone Number [facility] [address] [place] [address] * C REACTIVE PROTEIN (04/15/2020 11:28 EST) C-Reactive Protein <7.0 <10.0 mg/L 06/30/2020 12:01 EST [facility] Blood VENOUS BLOOD / Unknown 04/15/2020 11:28 EST 06/23/2020 15:27 EST us Mushtaq Light DO CHEMISTRY & BLOOD GAS ORDER HAILEY Final Result Performing Organization Address [facility] Co de Phone Number [facility] [address] [place] [address] documented in this encounter Visit Diagnoses Diagnosis Other chronic hematogenous osteomyelitis, left ankle and foot (HCC-CMS) documented in this encounter Additional Health Concerns Infection Onset Date Last Indicated Resolved Time R/O COVID-19 08/04/2020 08/04/2020 08/04/2020 11:4 0 EST documented as of this encounter Care Teams Product Marketing Engineer Relationship Specialty Start Date End Date Carrington Calderon MD 1 [facility] 1 [place] [address] PCP - General Internal Medicine - Primary Care 12/09/20 Abigail Díaz Cash Sales Audit Clerk 04/21/23 01/03/24 Carmelo Hendrickson Coordinator 12/01/23 Abigail Díaz Cash Sales Audit Clerk 01/04/24 documented as of this encounter
--- OUTSIDE RECORDS SUMMARY | 2024-05-31 07:32 | XMS_ITS | Encounter Summary ---
Author Organization [facility] Address [address] [place] [address] Care Team Providers Care Internet Project Manager Name Role Phone Carrington Calderon MD Primary Care Provi anders Reason for Visit * Reason Onset Date Comments Blood Sugar Problem 03/18/2020 low;75 Medication Questions 03/18/2020 insulin Encounter Details Date Type Department Care Team (Late st Contact Info) Description 03/18/2020 Telephone [facility] - [facility] [address] [place] [address] Sara Zafar NP [address] [facility] [address] [place] [address] Blood Sugar Problem (low;75); Medication [...] documented as of this encounter Care Teams Internet Project Manager Relationship Specialty Start Date End Date Carrington Calderon MD 1 [facility] 1 [place] [phone] PCP - General Internal Medicine - Primary Care 12/09/20 documented as of this encounter
--- OUTSIDE RECORDS SUMMARY | 2024-05-31 07:32 | XMS_ITS | Encounter Summary ---
Author Organization [facility] Address [address] [place] [address] Care Team Providers Care Director Group Sales Name Role Phone Unavailable Primary Care Provider Unavailabl e Reason for Visit * Reason Onset Date Comments Abnormal Lab 05/05/2020 Encounter Details Date Type Department Care Team ([facility] st Contact Info) Description 05/05/2020 Telephone [facility] Medicine [address] [address] Shari Grider, DO [address] [place] [address] Abnormal Lab Social History Tobacco Use Types [...] Telephone Encounter - Shari Grider, - 05/05/2020 5077 EST Lab called with critical result - blood culture positive for gram positive bacilli at 37 hours in 1/2 aerobic bottles. Case discussed with Dr. You who notes patient was well-appearing when she left AMA last night. Will check in with her tomorrow AM and let her outpatient care team know. Shari Grider DO 05/05/20 22:20 Family Medicine PGY-3 Pager #[phone] documented in this encounter Plan of Treatment Not on file documented as of this encounter Visit Diagnoses Not on filedocumented in this encounter
--- OUTSIDE RECORDS SUMMARY | 2024-05-31 07:32 | XMS_ITS | Encounter Summary ---
Author Organization [facility] Address [address] [place] [address] Care Team Providers Care Shake Backboard Notcher Name Role Phone Unavailable Primary Care Provider Unavailabl e Reason for Visit * Reason Onset Date Comments Coordination Of Care 03/12/2020 Encounter Details Date Type Department Care Team (Late st Contact Info) Description 03/12/2020 Telephone [facility] Adult Primary Care - [address] [phone] Tonja Alejandro PA-C [facility] [address] [place] [phone] Coordination Of Care Social History Tobacco [...]
--- OUTSIDE RECORDS SUMMARY | 2024-05-31 07:32 | XMS_ITS | Encounter Summary ---
Author Organization Health system Address [address] [place] [address] Care Team Providers Care Ball Rolling Machine Operator Name Role Phone Unavailable Primary [...]
--- OUTSIDE RECORDS SUMMARY | 2024-05-31 07:32 | XMS_ITS | Encounter Summary ---
Author Organization [facility] Address [address] [place] [address] Care Team Providers Care Waxer Operator Name Role Phone Unavailable Primary Care Provider Unavailabl e Reason for Visit * Reason Comments Follow-up Encounter Details Date Type Department Care Team (Late st Contact Info) Description 04/16/2020 9:30 EST Telemedicine [facility] Infectious Disease - [address] [phone] Mushtaq Light, DO 111 [facility], [address] [place] [address] Osteomyelitis of great toe of [...] For patients, please refer to guidance in [employer] on how to locate information. Generally this information will appear as a scanned documents saved in My Documents activity. documented in this encounter Plan of Treatment Not on file documented as of this encounter Visit Diagnoses Diagnosis Osteomyelitis of great toe of left foot (HCC-CMS)- Primary documented in this encounter
--- OUTSIDE RECORDS SUMMARY | 2024-05-31 07:32 | XMS_ITS | Encounter Summary ---
Author Organization [facility] Address [address] [place] [address] Care Team Providers Care Returned Goods Inspector Name Role Phone Unavailable Primary Care Provider Unavailabl e Reason for Visit * Reason Comments Diabetes Encounter Details Date Type Department Care Team (Latest Contact Info) Description 04/14/2020 13:30 EST Telemedicine [facility] Adult Primary Care - [address] [phone] Tonja Alejandro PA-C [address] [place] [address] [place] [phone] Polyneuropathy associated with underlying disease (HCC-CMS) [...] For patients, please refer to guidance in [employer] on how to locate information. Generally this information will appear as a scanned documents saved in My Documents activity. * Tonja Alejandro PA-C - 04/14/2020 1330 EST [facility] ADULT PRIMARY CARE [place] PROGRESS / FOLLOWUP NOTE - 04/14/2020 CONSENT: [...] Tonja Alejandro PA-C / DB Dictation ID: [id number] cc: documented in this encounter Plan of [...]
--- OUTSIDE RECORDS SUMMARY | 2024-05-31 07:32 | XMS_ITS | Encounter Summary ---
Author Organization [facility] Address [address] [place] [address] Care Team Providers Care Caser Shoe [employer] Name Role Phone Unavailable Primary Care Provider Unavailabl e Reason for Visit * Reason Comments Follow-up Encounter Details Date Type Department Care Team (Late st Contact Info) Description 04/03/2020 13:30 EDT Telemedicine [facility] Infectious Disease - [address] [phone] Tonja Plascencia NP [address] [facility], [address] [place] [address] Osteomyelitis of great toe of [...] For patients, please refer to guidance in [facility] on how to locate information. Generally this information will appear as a scanned documents saved in My Documents activity. documented in this encounter Plan of Treatment Not on file documented as of this encounter Visit Diagnoses Diagnosis Osteomyelitis of great toe of left foot (HCC-CMS)- Primary documented in this encounter
--- OUTSIDE RECORDS SUMMARY | 2024-05-31 07:32 | XMS_ITS | Encounter Summary ---
Author Organization [facility] Address [address] [place] [address] Care Team Providers Care Civil Preparedness Officer Name Role Phone Unavailable Primary Care Provider Unavailabl e Reason for Visit * Reason Comments Foot Problem Encounter Details Date Type Department Care Team (Late st Contact Info) Description 03/25/2020 8:30 EDT Office Visit [facility] Foot & Ankle Program - [address] [address] Elza Navarro DPM [address] [place] [phone] Ulcer of great toe, left, with necrosis of bone ([facility]) (Primary Dx); Type 2 diabetes mellitus with diabetic polyneuropathy, with long-term current use of insulin ([facility]) Social History Tobacco Use Types Packs/Day [...] Osteomyelitis of great toe of left foot ([facility]) 03/12/2020 Priority: Medium ??? Diabetic foot ulcer associated with diabetes mellitus due to underlying condition ([facility]) 03/07/2020 Priority: Medium ??? Diabetic foot infection ([facility]) 03/06/2020 Priority: Medium ??? Diabetic foot ulcer ([facility]) 03/06/2020 Priority: Medium ??? Cellulitis of great toe of left foot 11/26/2019 Priority: Medium ??? Chronic midline low back pain without sciatica 11/26/2019 Priority: Medium ??? Chronic left ear pain 09/04/2015 Priority: Medium ??? Encounter for sterilization 11/20/2019 ??? Family history of rheumatoid arthritis 09/04/2015 ??? Type 2 diabetes mellitus ([facility]) 09/03/2015 ??? Anxiety and depression 05/12/2010 ??? Migraine with aura and without status migrainosus, not intractable Past Medical History: Diagnosis Date ??? Anxiety ??? Arthritis 12/05/19- Spine- told years ago ??? Diabetes ([facility]) A1c 10.3 on 11/28/2019 ??? History [...] of bone ([facility]) 2. Type 2 diabetes mellitus with diabetic polyneuropathy, with long-term current use of insulin ([facility]) No orders of the defined types [...] with speech recognition software or keyboard data conversion developer techniques. Minor irregularities or keyboarding misprints may be present * Swathi Tesfaye LPN - 03/25/2020 0830 EDT Call to [facility] with wound care orders. SWATHI TESFAYE LPN documented in this encounter Plan of Treatment Not on file documented as of this encounter Visit Diagnoses Diagnosis Ulcer of great toe, left, with necrosis of bone ([facility])- Primary Type 2 diabetes mellitus with diabetic polyneuropathy, with long-term current use of insulin ([facility]) documented in this encounter
--- OUTSIDE RECORDS SUMMARY | 2024-05-31 07:32 | XMS_ITS | Encounter Summary ---
Author Organization [facility] Address [address] [place] [address] Care Team Providers Care Supervisor Poultry Processing Name Role Phone Unavailable Primary Care Provider Unavailabl e Encounter Details Date Type Department Care Team ([facility] Contact Info) Description 03/13/2020 Documentation Visit [facility] - [address] [place] [address] Natasha Crook, RN [address] [place] [address] Social History Tobacco Use Types Packs/Day Years [...]
--- OUTSIDE RECORDS SUMMARY | 2024-05-31 07:33 | XMS_ITS | Encounter Summary ---
Author Organization [facility] Address [address] [place] [address] Care Team Providers Care Noc Analyst Name Role Phone Unavailable Primary Care Provider Unavailabl e Reason for Visit * Reason Comments Social Work Encounter Details Date Type Department Care Team (Late st Contact Info) Description 12/19/2019 Community Health Team [facility] OBGYN Services - [address] [address] Eryn Diaz Social History Tobacco Use Types [...]
--- OUTSIDE RECORDS SUMMARY | 2024-05-31 07:33 | XMS_ITS | Encounter Summary ---
Author Organization [facility] Address [address] [place] [address] Care Team Providers Care Underground Utility Locator Name Role Phone Unavailable Primary Care Provider Unavailabl e Encounter Details Date Type Department Care Team (Late st Contact Info) Description 11/28/2019 16:00 EDT Phlebotomy Only [facility] Services - [address] [address] Re[facility] Type 2 diabetes mellitus with other specified complication, unspecified whether detention insulin use ([facility]); Anxiety and depression; Left foot [...] 11/28/2019 15:56 EDT Anxiety and depression URINE [id number] RATIO (ACR) Routine 11/28/2019 15:56 EDT Type 2 diabetes mellitus with other specified complication, unspecified whether detention insulin use ([facility]) COMPLETE BLOOD COUNT AND DIFFERENTIAL Routine 11/28/2019 15:56 EDT Left foot pain C REACTIVE PROTEIN Routine 11/28/2019 15 :56 EDT Left foot pain HEMOGLOBIN A1C Routine 11/28/2019 15:56 EDT Type 2 diabetes mellitus with other specified complication, unspecified whether detention insulin use ([facility]) LIPID PROFILE (INCLUDES CHOLESTEROL, TRIGLYCERIDES, HDL, LDL) Routine 11/28/2019 15:56 EDT Type 2 diabetes mellitus with other specified complication, 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 % Banded Neutrophils 0.9 % 11/28/2019 17:50 [facility] % Lymphocytes 37.1 % 11/28/2019 [...] 5.33(H) 1.09 - 3.30 K/cmm 11/28/2019 17:50 [facility] Absolute Atypical Lymphocytes 1.11 K/cmm 11/28/2019 17:50 [facility] Absolute Monocytes 0.62 0.10 - 0.80 K/cmm 11/28/2019 17:50 [facility] Absolute Eosinophils 0.37 0.03 - 0.61 K/cmm 11/28/2019 17:50 [facility] ABS Basophils 0.24(H) 0.01 - 0.11 K/cmm 11/28/2019 17:50 [facility] Blood VENOUS BLOOD / Unknown Venipuncture / Unknown 11/28/2019 15:56 EDT 11/28/2019 15:56 EDT us Tonja Alejandro PA-C HEMATOLOGY & PF4 ORD ERABLES Final Result [facility] [address] [place] [address] * (ABNORMAL) C REACTIVE PROTEIN (11/28/2019 15:56 EDT) C-Reactive Protein 10.6(H) <10.0 mg/L 11/28/2019 17:12 [facility] Blood VENOUS BLOOD / Unknown Venipuncture / Unknown 11/28/2019 15:56 EDT 11/28/2019 15:56 EDT Tonja Alejandro PA-C CHEMISTRY & BLOOD GA S ORDERABLES Final Result [facility] [address] [place] [address] * (ABNORMAL) COMPREHENSIVE METABOLIC PANEL (CMP) (11/28/2019 [...] & BLOOD GA S ORDERABLES Final Result [facility] [address] [place] [address] * (ABNORMAL) COMPLETE BLOOD COUNT AND DIFFERENTIAL [...] 32.1 - 35.9 gm/dL 11/28/2019 17:04 EDT [facility] RDW-CV 12.0 <14.7 % 11/28/2019 17:04 EDT [facility] RDW-SD 38.4 <50.4 fl 11/28/2019 17:04 EDT [facility] PLT 414(H) 141 - 377 K/cmm 11/28/2019 17:04 EDT [facility] MPV 10.1 9.5 - 12.7 fl 11/28/2019 17:04 EDT [facility] Type of Differential: Manual 11/28/2019 17:04 EDT [facility] Blood VENOUS BLOOD / Unknown Venipuncture / Unknown 11/28/2019 15:56 EDT 11/28/2019 15:56 EDT Tonja Alejandro PA-C PACKAGES & DNA PROBE ORDERABLES Final Result [facility] [address] [place] [address] * (ABNORMAL) HEMOGLOBIN A1C (11/28/2019 15:56 EDT) Hemoglobin A1c 10.3(H) <5.7 % 11/29/2019 9:15 EDT [facility] Comment: Glycemic Status [...] Avg Glucose 249 mg/dL 0 9:15 EDT [facility] Comment: The eAG represents the A1c result expressed as average glucose in mg/dL. Blood VENOUS BLOOD / Unknown Venipuncture / Unknown 11/28/2019 15:56 EDT 11/28/2019 15:56 EDT Tonja DAWSON-C CHEMISTRY & BLOOD GA S ORDERABLES Final Result Performing Organization Address [facility] de Phone Number [facility] [address] [place] [address] * THYROID CASCADE (11/28/2019 15:56 EDT) TSH 0.64 0.47 - 4.68 uIU/mL 11/28/2019 17:44 EDT [facility] Blood VENOUS BLOOD / Unknown Venipuncture / Unknown 11/28/2019 15:56 EDT 11/28/2019 15:56 EDT Narrative [facility] - 11/28/2019 17:44 EDT NOTE: TSH [place] is not recommended for patients in which pituitary or hypothalamic disorders are suspected. The results of this assay can be falsely lowered due to the consumption of Biotin. Tonja Alejandro PA-C CHEMISTRY & BLOOD GA S ORDERABLES Final Result Performing Organization Address [facility] de Phone Number [facility] [address] [place] [address] * LIPID PROFILE (INCLUDES CHOLESTEROL, TRIGLYCERIDES, HDL, LDL) (11/28/2019 15:56 EDT) Cholesterol 179 See Note mg/dL 11/28/2019 17:12 EDT [facility] Comment: Acceptable: ?<200 mg/dL Borderline High: 200-239 mg/dL High: ?> or = 240 mg/dL HDL 38 See Note mg/dL 11/28/2019 17:12 EDT [facility] Comment: Low: ? <40 mg/dL Normal: ??40-60 mg/dL High: ?>60 mg/dL LDL, Calculated 61 See Note mg/dL 11/28/2019 17:12 [facility] Comment: Optimal: ? <100 mg/dL Near Optimal: ?100-129 mg/dL Borderline High: 130-159 mg/dL High: ?160-189 mg/dL Very High: ? > or = 190 mg/dL Triglyceride 398 See Note mg/dL 11/28/2019 17:12 EDT [facility] Comment: Normal: ? <150 mg/dL Borderline High: ??150 - 199 mg/dL High: ? 200 - 499 mg/dL Very High: ?> or = 500 mg/dL Chol/HDL Ratio 4.7 See Note 11/28/2019 17:12 [facility] Comment: No reference range has been established for CHOL/HDL ratio. Non HDL Cholesterol 141 See Note mg/dL 11/28/2019 17:12 [facility] Comment: Desirable: ?<130 mg/dL Borderline High: ??130-159 mg/dL High: ? 160-189 mg/dL Very High: ?> or = 190 mg/dL Blood VENOUS BLOOD / Unknown Venipuncture / Unknown 11/28/2019 15:56 EDT 11/28/2019 15:56 EDT us Tonja Alejandro PA-C CHEMISTRY & BLOOD GA S ORDERABLES Final Result [facility] [address] [place] [address] * (ABNORMAL) ALBUMIN, URINE (11/28/2019 15:56 EDT) Albumin, Urine 11.3 See Note mg/dL 2019 16:47 EDT [facility] Comment: NOTE: Reference range not established Creatinine, Urine 143.1 See Note mg/dL 11/28/2019 16:47 EDT [facility] Comment: NOTE: Reference range not established Lab Urine Albumin to Creatinine Ratio 79(H) <30 ug/mg Creatinine 11/28/2019 16:47 EDT [facility] Comment: Urine Albumin/Creatinine Ratio: Normal: <30 ug/mg Creatinine Moderately increased albuminuria: 30-300 ug/mg Creatinine Severley increased albuminuria: >300 ug/mg Creatinine Urine URINE SPECIMEN OBTAINED BY CLEAN CATCH PROCEDURE / Unknown Urine Collect / Unknown 11/28/2019 15:56 EDT 11/28/2019 15:56 EDT Tonja Alejandro PA-C CHEMISTRY & BLOOD GA S ORDERABLES Final Result [facility] [address] [place] [address] documented in this encounter Visit Diagnoses Diagnosis Type 2 diabetes mellitus with other specified complication, 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
--- OUTSIDE RECORDS SUMMARY | 2024-05-31 07:33 | XMS_ITS | Encounter Summary ---
Author Organization [facility] Address [address] [place] [address] Care Team Providers Care Cutch Cleaner Name Role Phone Unavailable Primary Care Provider Unavailabl e Encounter Details Date Type Department Care Team (Latest Contact Info) Description 01/01/2020 8:37 EDT - 01/01/2020 23:59 EDT [address] Encounter [address] [place], [place] [phone] Discharge Disposition: Home or Self Care Social [...] mL 3 12/04/2019 2 lancets One Touch DelNetflix or other brand compatible with lancing device [...] Ulcerated, foot, left, with fat layer exposed ([facility]) Type 2 diabetes mellitus with diabetic polyneuropathy, with long-term current use of insulin ([facility]) documented in this encounter Results * [...]
--- OUTSIDE RECORDS SUMMARY | 2024-05-31 07:33 | XMS_ITS | Encounter Summary ---
Author Organization [facility] Address [address] [place] [address] Care Team Providers Care Mission Worker Name Role Phone Unavailable Primary Care Provider Unavailabl e Reason for Visit * Reason Comments Telemedicine Video Visit Sore left great toe Foot Swelling Encounter Details Date Type Department Care Team (Late st Contact Info) Description 03/06/2020 16:00 EDT Telemedicine [facility] Adult Primary Care - [address] [address] Moshe Ferrer MD 1 [facility] Level [address] [place] [phone] Cellulitis of great toe of left foot [...] with a trained counselor. Tobacco Counseling in [facility] offers free counseling services to residents who are ready to cut back or quit using tobacco. Services include: phone coaching (8-744-NPMY-NOW), online tools and support for those who would like to make changes on their own (www.[employer]), as well as in-person group workshops. Free nicotine replacement therapy is available through all of these resources. To learn more about your options visit www.[employer].org or call 7-054-NKER-NOW ( ). To speak with an in-person tobacco counselor in [facility] call, [phone]. [place] Resident, please visit: [email or web address] I hope you quit smoking. I think [...] 27 mL 3 ??? lancets One Touch [email or web address].ru or other brand compatible with lancing device [...] and depression ??? Type 2 diabetes mellitus ([facility]) ??? Chronic left ear pain ??? Family [...] infection can be identified. Moshe Ferrer MD resourcing consultant The concept of ???Telemedicine?? has been described [...] or mental health care. Moshe Ferrer MD resourcing consultant documented in this encounter Plan of Treatment Not on file documented as of this encounter Visit Diagnoses Diagnosis Cellulitis of great toe of left foot- Primary Cellulitis and abscess of toe, unspecified documented in this encounter
--- OUTSIDE RECORDS SUMMARY | 2024-05-31 07:33 | XMS_ITS | Encounter Summary ---
Author Organization [facility] Address [address] [place] [address] Care Team Providers Care Industrial Cleaner Name Role Phone Unavailable Primary Care Provider Unavailabl e Reason for Visit * Reason Comments Foot Problem * Consult (Routine/Next Available) - Order Cancelled Specialty Diagnoses / Procedures Referred By Kit gooed Referred To Contact Orthopedic Surgery Diagnoses Left foot pain Sore on toe ([facility]) Tonja Alejandro PA-C Phone: tel: fax: [facility] [place] [address] Phone: tel: fax: Referral ID Status Reason Start Date Expiration Date Visits Requested Visits Authorized [id number] Order Cancelled Specialty Services Required 11/28/2019 1 1 Encounter Details Date Type Department Care Team (Late st Contact Info) Description 01/01/2020 8:00 EDT Office Visit [facility] [place] [address] Elza Navarro DPM [address] [place] [phone] Chronic pain of left ankle (Primary Dx); Ulcerated, foot, left, with fat layer exposed ([facility]); Type 2 diabetes mellitus with diabetic polyneuropathy, with long-term current use of insulin ([facility]) Social History Tobacco Use Types [...] arthritis 09/04/2015 ??? Type 2 diabetes mellitus ([facility]) 09/03/2015 ??? Anxiety and depression 05/12/2010 ??? Migraine with aura and without status migrainosus, not intractable Past Medical History: Diagnosis Date ??? Anxiety ??? Arthritis 12/05/19- Spine- told years ago ??? Diabetes ([facility]) A1c 10.3 on 11/28/2019 [...] around the ulcer. Protective sensation absent via [employer] Bella monofilament 0 out of 10. Left plantar great toe ulcer after debridement: ASSESSMENT: 1. Chronic pain of left ankle XR ANKLE LEFT 3 OR MORE VIEWS 2. Ulcerated, foot, left, with fat layer exposed (HCC-CMS) XR FOOT LEFT 3 OR MORE VIEWS 3. Type 2 diabetes mellitus with diabetic polyneuropathy, with long-term current use of insulin ([facility]) XR FOOT LEFT 3 OR [...] with speech recognition software or keyboard data reviewer techniques. Minor irregularities or keyboarding misprints may [...] Ulcerated, foot, left, with fat layer exposed ([facility]) Type 2 diabetes mellitus with diabetic polyneuropathy, with long-term current use of insulin ([facility]) documented in this encounter [...] COMPARISON: Left foot MRI 12/05/2019. Procedure Note aZk Maya, DO - 01/01/2020 EXAM/TECHNIQUE: XR FOOT [...] Ulcerated, foot, left, with fat layer exposed ([facility]) Type 2 diabetes mellitus with diabetic polyneuropathy, with long-term current use of insulin ([facility]) documented in this encounter Orders Equipment Count Last Ordered Date First Orde red Date GENERIC ORTHO VENDOR DME 1 01/01/2020 documented in this encounter
--- OUTSIDE RECORDS SUMMARY | 2024-05-31 07:33 | XMS_ITS | Encounter Summary ---
Author Organization [facility] Address [address] [place] [address] Care Team Providers Care First Helper Name Role Phone Unavailable Primary Care Provider Unavailabl e Reason for Visit * Reason Onset Date Comments Results 11/30/2019 Encounter Details Date Type Department Care Team (Late st Contact Info) Description 11/30/2019 Telephone [facility] Adult Primary Care - [address] [phone] Tonja Alejandro PA-C [address] [place] [address] [place] [phone] Results Social History Tobacco Use Types [...]
--- OUTSIDE RECORDS SUMMARY | 2024-05-31 07:33 | XMS_ITS | Encounter Summary ---
Author Organization [facility] Address [address] [place] [address] Care Team Providers Care Windows System Admin Name Role Phone Unavailable Primary Care Provider Unavailabl e Encounter Details Date Type Department Care Team (Latest Contact Info) Description 01/01/2020 8:37 EDT - 01/01/2020 23:59 EDT [address] Encounter [address] [place], [place] [phone] Discharge Disposition: Home or Self Care Social [...] mL 3 12/04/2019 2 lancets One Touch DelZapstitch or other brand compatible with lancing device [...]
--- OUTSIDE RECORDS SUMMARY | 2024-05-31 07:33 | XMS_ITS | Encounter Summary ---
Author Organization [facility] Address [address] [place] [address] Care Team Providers Care Factory Helper Name Role Phone Unavailable Primary Care Provider Unavailabl e Reason for Visit * Reason Comments Telemedicine Video Visit Foot Pain Ankle Pain Encounter Details Date Type Department Care Team (Latest Contact Info) Description 12/28/2019 10:45 EDT Telemedicine [facility] Adult Primary Care - [address] [phone] Teodoro Alejandro PA-C [address] [facility] [address] [place] [phone] Encounter for sterilization (Primary Dx); Type 2 diabetes mellitus with hyperosmolarity without coma, with long-term current use of insulin ([facility]); Left foot pain Social History [...] and ankle. OBGYN: Patient followed up with LIFE MANAGER on 11/02/2019 and a discussion was placed [...] 27 mL 3 ??? lancets One Touch DelWindsor Circle or other brand compatible with lancing device [...] Encounter for sterilization Patient will follow-up with LIFE MANAGER regarding sterilization. Also discussed with patient about possiblevasectomy for her partner. Type 2 diabetes mellitus with hyperosmolarity without coma, with long-term current use of insulin ([facility]) Continue Lantus 30 mg daily. [...] current use of insulin ([facility]) Left foot pain Pain in limb documented in this encounter
--- OUTSIDE RECORDS SUMMARY | 2024-05-31 07:33 | XMS_ITS | Encounter Summary ---
Author Organization [facility] Address [address] [place] [address] Care Team Providers Care Main Entree Cook And Cashier Name Role Phone Unavailable Primary Care Provider Unavailabl e Reason for Visit * Reason Comments Diabetes * Consult (Routine) - Specialty Report Received Specialty Diagnoses / Procedures Referred By Kit t Referred To Contact Endocrinology Diagnoses Type 2 diabetes mellitus with other specified complication, unspecified whether [facility] insulin use ([facility]) Tonja Alejandro PA-C [address] [place] [phone] Phone: tel: fax: [facility] Endocrinology - [address] [address] Phone: tel: fax: Referral ID Status Reason Start Date Expiration Date Visits Requested Visits Authorized [id number] Specialty Report Received Specialty Services Required 11/27/2019 1 1 Encounter Details Date Type Department Care Team (Latest Contact Info) Description 11/30/2019 9:30 EDT Telemedicine [facility] Endocrinology - [facility] [place] [address] [place] [address] Sara Zafar NP [address] [facility] [address] [place] [address] Anxiety and depression (Primary Dx); Type 2 diabetes mellitus with hyperosmolarity without coma, with long-term current use of insulin ([facility]) Social History Tobacco Use Types [...] APRN - 11/30/2019 0930 EDT Subjective: [facility] diabetes Center F/U Note TELEMEDICINE VIDEO [...] trimester miscarriages, most recently terminated a at [facility] The most recent 10/28/2019. Recurrent loss is attributed to to poorly controlled type 2 diabetes in conjunction with tobacco dependence. She saw PROVISIONING SPECIALIST on 11/03/2018, and was advised to get diabetes in control, and to quit smoking both tobacco and pot. She is now scheduled for a tubal ligation December 14. 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 Previous marriage [...] coma, with long-term current use of insulin ([facility]) documented in this encounter Discontinued Medications [...]
--- OUTSIDE RECORDS SUMMARY | 2024-05-31 07:33 | XMS_ITS | Encounter Summary ---
Author Organization [facility] Address [address] [place] [address] Care Team Providers Care B2B Sales Consultant Name Role Phone Unavailable Primary Care Provider Unavailabl e Reason for Visit * Reason Onset Date Comments Follow-up 03/05/2020 Encounter Details Date Type Department Care Team (Late st Contact Info) Description 03/05/2020 Telephone [facility] Adult Primary Care - [address] [id number] Tonja Alejandro PA-C [facility] [address] [place] [phone] Follow-up Social History Tobacco Use Types [...] next week. * Telephone Encounter - Benita Thmopson RN - 03/05/2020 1607 EDT Spoke to [...]
--- OUTSIDE RECORDS SUMMARY | 2024-05-31 07:33 | XMS_ITS | Encounter Summary ---
Author Organization [facility] Address [address] [place] [address] Care Team Providers Care Gyro Compass Tester Name Role Phone Unavailable Primary Care [...]
--- OUTSIDE RECORDS SUMMARY | 2024-05-31 07:33 | XMS_ITS | Encounter Summary ---
Author Organization [facility] Address [address] [place] [address] Care Team Providers Care Systems Integration Manager Name Role Phone Unavailable Primary Care [...]
--- OUTSIDE RECORDS SUMMARY | 2024-05-31 07:33 | XMS_ITS | Encounter Summary ---
Author Organization [facility] Address [address] [place] [address] Care Team Providers Care Transmission Tester Name Role Phone Unavailable Primary Care Provider Unavailabl e Reason for Visit * Reason Comments Diabetes Encounter Details Date Type Department Care Team (Latest Contact Info) Description 01/08/2020 10:30 EDT Telemedicine [facility] - [facility] [address] [place] [address] Sara Zafar NP [address] [facility] [address] [place] [address] Type 2 diabetes mellitus with hyperglycemia, with long-term current use of insulin ([facility]) (Primary Dx) Social History Tobacco Use [...] in 3 months I will check with METAL FABRICATION SUPERVISOR on expected HgA1C to have surgery. documented in this encounter Progress Notes * Sara Zafar APRN - 01/08/2020 1030 EDT Subjective: [facility] diabetes Center F/U Note TELEMEDICINE VIDEO [...] terminated a at [facility] The most recent 10/28/2019. Recurrent loss is attributed to to poorly controlled type 2 diabetes in conjunction with tobacco dependence. She saw COUNTY HOME DEMONSTRATOR on 11/03/2018, and was advised to get diabetes in control, and to quit smoking both tobacco and pot. She was scheduled for a tubal ligation December 14, but was cancelled again. 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 Previous [...] in 3 months I will check with METAL FABRICATION SUPERVISOR on expected HgA1C to have surgery. Recommend [...] hyperglycemia, with long-term current use of insulin ([facility])- Primary documented in this encounter Discontinued Medications Medication Sig Discontinue Reason Start Date End Da te metFORMIN (GLUCOPHAGE) 500 mg tablet Take 2 Tabs by mouth daily for 90 days. Side effects 11/26/2019 01/08/2020 documented as of this encounter
--- OUTSIDE RECORDS SUMMARY | 2024-05-31 07:33 | XMS_ITS | Encounter Summary ---
Author Organization [facility] Address [address] [place] [address] Care Team Providers Care Gis Programmer Name Role Phone Unavailable Primary Care Provider Unavailabl e Reason for Visit * Reason Comments Foot Ulcer pt has had foot ulce r for 2.5 mo on left great toe, sent here by primary Encounter Details Date Type Department Care Team (Late st Contact Info) Description 03/04/2020 14:31 EDT - 03/04/2020 16:32 EDT Emergency [facility] Emergency Department - [address] [address] Mayank Cruz MD [address] [facility] [address] [place] [address] 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 * Diabetic Foot Ulcer ([place]) documented in this encounter Medications at [...] Awaiting results and further orders. * Eryn Lusnford RN - 03/04/[address] Cruz [...] Stable * Eryn Lunsford RN - 03/04/2020 6856 EDT Patient to ED with c/o worsening [...] Growth at 5 days 03/09/2020 15:45 EDT [facility] Blood VENOUS BLOOD / Unknown Blood Culture / Unknown 03/04/2020 15:20 EDT 03/04/2020 15:38 EDT Scott Harrington MD MICROBIOLOGY - GENERAL ORDER HAILEY Final Result Performing Organization Address City/[facility]/ZIP Co de Phone Number [facility] [address] [place] [address] * (ABNORMAL) GLUCOSE, SERUM (03/04/2020 15:03 EDT) Glucose 273(H) 70 - 100 mg/dL 03/04/2020 15:40 EDT [facility] Blood VENOUS BLOOD / Unknown Venipuncture / Unknown 03/04/2020 15:03 EDT 03/04/2020 15:11 EDT Scott Harrington MD CHEMISTRY & BLOOD GAS ORDERA BLES Final Result Performing Organization Address City/[facility]/ZIP Co de Phone Number [facility] [address] [place] [address] * (ABNORMAL) CREATININE (03/04/2020 15:03 EDT) Creatinine 0.41(L) 0.52 - 1.04 mg/dL 03/04/2020 15:40 EDT [facility] eGFR 135 >60 mL/min/1.7 3m2 03/04/2020 15:40 EDT [facility] Comment:eGFR calculated gil curtis CKD-EPI equation for non- Americans. Multiply eGFR by 1.16 for patients. Blood VENOUS BLOOD / Unknown Venipuncture / Unknown 03/04/2020 15:03 EDT 03/04/2020 15:11 EDT Scott Harrington MD CHEMISTRY & BLOOD GAS ORDERA BLES Final Result Performing Organization Address [facility] Co de Phone Number [facility] [address] [place] [address] * BUN (03/04/2020 15:03 EDT) BUN 13 10 - 26 mg/dL 03/04/2020 15:43 EDT [facility] Comment: Slight hemolysis identified, interpret with caution as results may be affected due to hemolysis. Blood VENOUS BLOOD / Unknown Venipuncture / Unknown 03/04/2020 15:03 EDT 03/04/2020 15:11 EDT Scott Harrington MD CHEMISTRY & BLOOD GAS ORDERA BLES Final Result Performing Organization Address [facility] Co de Phone Number [facility] [address] [place] [address] * ELECTROLYTES (03/04/2020 15:03 EDT) Sodium 140 136 - 145 mEq/L 03/04/2020 15:43 EDT [facility] Potassium 4.3 3.5 - 5.0 mEq/L 03/04/2020 15:43 EDT [facility] Comment: Slight hemolysis identified, interpret with caution as hemolysis will elevate potassium result. NOTE: Interpret with caution. Prolonged sample storage may alter the result. Chloride 99 96 - 110 mEq/L 03/04/2020 15:43 EDT [facility] CO2 Total 30 22 - 32 mEq/L 03/04/2020 15:43 EDT [facility] Comment: NOTE: Interpret with caution. Prolonged sample storage may alter the result. Blood VENOUS BLOOD / Unknown Venipuncture / Unknown 03/04/2020 15:03 EDT 03/04/2020 15:11 EDT Scott Harrington MD CHEMISTRY & BLOOD GAS ORDERA BLES Final Result Performing Organization Address City/[facility]/ZIP Co de Phone Number [facility] [address] [place] [address] * (ABNORMAL) SED. RATE:WESTERGREN (03/04/2020 15:03 EDT) Pathologist [facility] Sed Rate 54(H) 0 - 20 mm/hr 03/04/2020 16:19 EDT [facility] Blood VENOUS BLOOD / Unknown Venipuncture / Unknown 03/04/2020 15:03 EDT 03/04/2020 15:11 EDT Scott Harrington MD HEMATOLOGY & PF4 ORDERABLES Final Result Performing Organization Address [facility] Co de Phone Number [facility] [address] [place] [address] * (ABNORMAL) C REACTIVE PROTEIN (03/04/2020 15:03 EDT) Pathologist [facility] C-Reactive Protein 33.5(H) <10.0 mg/L 03/04/2020 15:40 EDT [facility] Blood VENOUS BLOOD / Unknown Venipuncture / Unknown 03/04/2020 15:03 EDT 03/04/2020 15:11 EDT Scott Harrington MD CHEMISTRY & BLOOD GAS ORDERA BLES Final Result Performing Organization Address City/[facility]/ZIP Co de Phone Number [facility] [address] [place] [address] * (ABNORMAL) COMPLETE BLOOD COUNT (03/04/2020 15:03 EDT) WBC 14.64(H) 4.00 - 12.40 K/cmm 03/04/2020 15:30 EDT [facility] RBC 4.58 3.86 - 5.04 M/cmm 03/04/2020 15:30 EDT [facility] Hemoglobin 14.1 11.6 - 15.2 gm/dL 03/04/2020 15:30 EDT [facility] HCT 40.0 34.9 - 44.4 % 03/04/2020 15:30 T [facility] MCV 87 81 - 98 fl 03/04/2020 15:30 T [facility] MCH 30.8 26.7 - 33.3 pg 03/04/2020 15:30 [facility] MCHC 35.3 32.1 - 35.9 gm/dL 03/04/2020 15:30 T [facility] RDW-CV 12.3 <14.7 % 03/04/2020 15:30 T [facility] RDW-SD 39.5 <50.4 fl 03/04/2020 15:30 T [facility] PLT 414(H) 141 - 377 K/cmm 03/04/2020 15:30 [facility] MPV 9.8 9.5 - 12.7 fl 03/04/2020 15:30 T [facility] Blood VENOUS BLOOD / Unknown Venipuncture / Unknown 03/04/2020 15:03 EDT 03/04/2020 15:11 EDT us Scott Harrington MD HEMATOLOGY & PF4 ORDERABLES Final Result [facility] [address] [place] [address] * HOLD SST (03/04/2020 15:03 EDT) Hold Hold 03/04/2020 16:15 T [facility] Blood VENOUS BLOOD / Unknown Venipuncture / Unknown 03/04/2020 15:03 EDT 03/04/2020 15:11 EDT Mayank Cruz MD LAB INFO SERVICE AND SUPPORT & PHONE RESULT Final Result [facility] [address] [place] [address] * HOLD LAVENDER TOP (03/04/2020 15:03 EDT) Hold Hold 03/04/2020 16:15 EDT [facility] Blood VENOUS BLOOD / Unknown Venipuncture / Unknown 03/04/2020 15:03 EDT 03/04/2020 15:11 EDT Mayank Cruz MD LAB INFO SERVICE AND SUPPORT & PHONE RESULT Final Result Performing Organization Address City/[facility]/ZIP Co de Phone Number [facility] [address] [place] [address] * HOLD GREEN TOP (03/04/2020 15:03 EDT) Hold Hold 03/04/2020 16:15 EDT [facility] Blood VENOUS BLOOD / Unknown Venipuncture / Unknown 03/04/2020 15:03 EDT 03/04/2020 15:11 EDT Mayank Cruz MD LAB INFO SERVICE AND SUPPORT & PHONE RESULT Final Result Performing Organization Address City/[facility]/ZIP Co de Phone Number [facility] [address] [place] [address] * HOLD BLUE TOP (03/04/2020 15:03 EDT) Hold Hold 03/04/2020 16:15 EDT [facility] Blood VENOUS BLOOD / Unknown Venipuncture / Unknown 03/04/2020 15:03 EDT 03/04/2020 15:11 EDT Mayank Cruz MD LAB INFO SERVICE AND SUPPORT & PHONE RESULT Final Result [facility] [address] [place] [address] documented in this encounter Visit Diagnoses Diagnosis 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
--- OUTSIDE RECORDS SUMMARY | 2024-05-31 07:33 | XMS_ITS | Encounter Summary ---
Author Organization [facility] Address [address] [place] [address] Care Team Providers Care Lead Java J2Ee Developer Name Role Phone Unavailable Primary Care Provider Unavailabl e Reason for Visit * Reason Onset Date Comments Results 12/05/2019 Encounter Details Date Type Department Care Team (Late st Contact Info) Description 12/05/[address] [facility] Adult Primary Care - [address] [phone] Tonja Alejandro PA-C [address] [place] [address] [place] [phone] Results Social History Tobacco Use Types [...] Encounter - Tonja Alejandro PA-C - 12/05/2019 8005 EDT I spoke with patient regarding MRI [...] the mild cellulitis. She will contact her GROUND NUCLE[employer]AP[employer] ASSEMBLY OFFICER and inform this of them as she [...]
--- OUTSIDE RECORDS SUMMARY | 2024-05-31 07:33 | XMS_ITS | Encounter Summary ---
Author Organization [facility] Address [address] [place] [address] Care Team Providers Care Title Attorney Name Role Phone Unavailable Primary Care Provider Unavailabl e Reason for Referral * Laboratory Services (Routine/Next Available) - New Request Specialty Diagnoses / Procedures Referred By Contac t Referred To Contact Diagnoses Diabetic foot ulcer ([facility]LY [facility]) Procedures C REACTIVE PROTEIN Mushtaq Light DO Phone: tel: fax: Referral ID Status Reason Start Date Expiration Date V isits Requested Visits Authorized [id number] New Request 03/12/2020 1 1 * Laboratory Services (Routine/Next Available) - New Request Specialty Diagnoses / Procedures Referred By Contac t Referred To Contact Diagnoses Diabetic foot ulcer ([facility]) Procedures SED. RATE:Mushtaq Peoples DO Phone: tel: fax: Referral ID Status Reason Start Date Expiration Date V isits Requested Visits Authorized [id number] New Request 03/12/2020 1 1 * Laboratory Services (Routine/Next Available) - New Request Specialty Diagnoses / Procedures Referred By Contac t Referred To Contact Diagnoses Diabetic foot ulcer ([facility]) Procedures CREATININE Mushtaq Light DO Phone: tel: fax: Referral ID Status Reason Start Date Expiration Date V isits Requested Visits Authorized [id number] New Request 03/12/2020 1 1 * Laboratory Services (Routine/Next Available) - New Request Specialty Diagnoses / Procedures Referred By Contac t Referred To Contact Diagnoses Diabetic foot ulcer ([facility]) Procedures COMPLETE BLOOD COUNT AND DIFFERENTIAL Mushtaq Light DO Phone: tel: fax: Referral ID Status Reason Start Date Expiration Date V isits Requested Visits Authorized [id number] New Request 03/12/2020 1 1 * Follow Up (Routine/Next Available) - Receiving Office to Obtain Authorization Specialty Diagnoses / Procedures Referred By Contac t Referred To Contact Podiatry Diagnoses Diabetic foot ulcer ([facility]) Carrington Mari MD [address] [place] [address] Phone: tel: fax: [facility] [address] [place] [address] Phone: tel: fax: Referral ID Status Reason Start Date Expiration Date Visits Requested Visits Authorized [id number] Receiving Office to Obtain Authorization Specialty Services [...] To Contact Diagnoses Diabetic foot ulcer ([facility]) Diabetic foot infection ([facility]) Diabetic foot ulcer associated with diabetes mellitus due to underlying condition, unspecified laterality, unspecified part of foot, unspecified ulcer stage (HCC-CMS) Referral ID Status Reason Start Date Expiration Date Visits Re quested Visits Authorized [id number] 1 1 Encounter Details Date Type Department Care Team (Late st Contact Info) Description 03/06/2020 18:11 EDT - 03/12/2020 12:07 EDT Hospital Encounter [facility] 6 General Medicine Telemetry Unit [address] [place] [address] [id number] Siobhan Hare PA-C [address] [place] [address] [phone] Elise Charles MD [address] [place] [address] [phone] Carrington Padilla MD [address] [place] [address] [phone] Cal Jenkins MBBS [address] [place] [phone] Nate Henderson MD [address] [place] [phone] Diabetic foot ulcer (HCC-CMS) (Primary Dx); Diabetic [...] toe of left foot ([facility]) Additional Problems Managed in the Hospital Active Hospital Problems Diagnosis Date Noted ??? *Osteomyelitis of great toe of left foot ([facility]) 03/12/2020 ??? Diabetic foot ulcer ([facility]) 03/06/2020 Resolved Hospital Problems No resolved problems [...] Units Date/Time Anaerobe Culture/Smear (inc. aerobes), Other [[id number]] (Abnormal) (Susceptibility) Collected: 03/07/20 1421 Lab Status: Preliminary result Specimen: Bone from Toe Updated: 03/10/20 1751 Organism ID Few Staphylococcus aureus Few Streptococcus agalactiae Few Streptococcus anginosus Moderate Prevotella bivia Smear Few Neutrophils Present Few Gram Positive Cocci Upcoming Appointments 2020 9:30 Office Visit with Elza Navarro DPM [facility] - [place] (--) [address] [phone] 2020 13:00 Televideo Short with Tonja Plascencia APRN [facility] (--) [address] [address] Mar 27, 2020 13:30 Televideo Short with Tonja Plascencia APRN [facility] (--) [address] [address] Apr 03, 2020 13:30 Televideo Short with Tonja Plascencia APRN [facility] (--) [address] [address] Apr 10, 2020 13:30 Televideo Short with Tonja Plascencia APRN [facility] (--) [address] [address] Apr 16, 2020 9:30 Televideo Short with Mushtaq Light DO [facility] (--) [address] [address] Discharge Handoff Communication Following information conveyed to Eulalia at office of Tonja Alejandor, by Jarrett Gutierrez PA-C: ?? Reason for [...] Disposition Code Departure Means Destination Home-Health Care [facility] [place] [place] Home documented in this encounter Progress Notes [...] discuss the patient's care with the physician sales service assistant. Nate Henderson MD 03/24/2020 12:46 * [...] questions. * Nate Henderson MD - 03/10/2020 3064 EDT Medicine Progress Note Admit Date: 03/06/2020 [...] discuss the patient's care with the physician sales service assistant. Nate Henderson MD 03/24/2020 12:48 * Ranulfo Valverde RN - 03/10/2020 1549 EDT Patient for home on IV antibiotic for a long course. Had discussed this with the pt and her spouse as a possibility last week. As of this time the pt isstill in agreement with home IV medication. She has chosen the [facility] and I have called to the Liaison for the [facility] to give a heads up as they will come into the home for reinforcement of teaching of self administration and will also change the dressing on the PICC line as per their agency protocol. Call to the [facility] and they have confirmed that the pt has 100% coverage from Medicaid. No prior auth needed. Awaiting PICC placement and initial infusion of medication and teaching from [facility] once the [...] Results: Anaerobe Culture/Smear (inc. aerobes), Other (Order [id number]) Abnormal Status: Preliminary result (Collected: 03/07/2020 14:21) [...] answer calls. Please direct calls to orthopaedics recreation therapy director resident for further questions. Cosigned by Eryn [...] REASON FOR ADMISSION: Diabetic foot ulcer ([facility]) Patient understands reason for admission: Yes PATIENT [...] FOR FINANCES: TRANSPORTATION: Transportation: Family, Self CULTURAL, ANGLICAN and/or LANGUAGE factors affecting health care/discharge planning: [...] Home Health Services: None DME Provider: Pharmacy: [id number] - [facility] [address] [facility] [address] [facility] [place] [address] Home Health: Other: POST HOSPITAL TRANSITION PLAN: Have met with the pt and her this day. She just had a debridement and BX. Awaiting results. Pt and her are both working and raising children. 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 Will await results of the BX and the determination regarding need for medication and specifics related to type, and duration and recommendations for mode of delivery. Case Management will follow for transition. This pt has Medicaid and is capable to having home IV medication if needed. Specifics for finances would need to be confirmed from [facility] most likely if IV is indicated. RANULFO VALVERDE RN CCM 0430 03/07/2020 16:13 * Vicki Phan RN - 03/07/2020 9207 EDT Diabetes Nurse clinician met with Stella [...] a planning healthy meals folder. Vicki CLARKE settlement worker Nurse Clinician #[id number] * Valencia Antunez - 03/07/2020 4296 EDT Medicine Progress Note Service Date: 03/07/2020 [...] Notes * Carrington Padilla MD - 03/06/2020 5500 EDT Images from the original note were [...] 12/05/19- Spine- told years ago ??? Diabetes ([facility]) A1c 10.3 on 11/28/2019 ??? History [...] Central Catheter Insertion First Catheter This Session gaming surveillance observer: Patient Location: M606/M606-02 Preliminary Data: Insertion Date: 03/11/20 Insertion Time: 1353 First Photoengraver: Nory Ware RN RN/SANDOR Documenting Procedure: Jessika [...] Line Operators: Number Of Operators: 1 First Photoengraver's Name: Nory Ware RN First Photoengraver's Title: Vascular restaurant delivery driver Unless otherwise noted, there were no complications, [...] [facility] pain and [facility] [...] of repeated infections. 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 Review of Systems: Remainder of a ten point review of systems was performed and negative. Past Medical History: has a past medical history of Anxiety, Arthritis, Diabetes ([facility]), Historyof general anesthesia, Nausea & vomiting, [...] Lives with her and children. 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 Vital Signs: BP 109/66 (BP Cuff Location: [...] lost to follow-up. 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 She is a current smoker and endorses occasional alcohol and marijuana use. Ambulatory status: ambulates without assistive devices Last meal: 12:30 03/07/20 Past Medical History: Diagnosis Date ??? Anxiety ??? Arthritis 12/05/19- Spine- told years ago ??? Diabetes ([facility]) A1c 10.3 on 11/28/2019 ??? 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 [...] T2DM with neuropathy who presents to the [facility] PCP's reccomendation, with increased swelling [...] care. Final diagnoses: Diabetic foot ulcer ([facility]) This documentation is recorded by Celestina Francis [...] as increased swelling. She does have a manager appointment, last saw them in late December. She [...] Araceli Final diagnoses: Diabetic foot ulcer ([facility]) DISPOSITION: Admitted The patient's pain was managed [...] the Emergency Department: Good PCP: Tonja Alejandro [place] 03/07/2020 12:09 No flowsheet data found. * [...] Plan Goals Description: D: Patient admitted to [facility] @ 2300. Patient's chief complaint is [...] Care - Carrington Mari MD - 03/07/2020 7854 EDT Consulted by medicine to evaluate the patient for diabetic foot wound. The patient was not in her room. According to nursing the patient and her went outside to get fresh air. Orthopedics will evaluate the patient at a later time Carrington Mari * Plan of Care - Marisa Barahona RN - 03/07/2020 0305 EDT D: Patient admitted to [facility] @ 2300. Patient's chief complaint is [...] AND DIFFERENTIAL Lab Routine Diabetic foot ulcer ([facility]) Ordered: 03/12/2020 CREATININE Lab Routine Diabetic foot ulcer ([facility]) Ordered: 03/12/2020 SED. RATE:WESTERGREN Lab Routine Diabetic foot ulcer ([facility]) Ordered: 03/12/2020 C REACTIVE PROTEIN Lab Routine Diabetic foot ulcer ([facility]) Ordered: 03/12/2020 Scheduled Referrals Name Type Priority Associated Diagnoses Orde r Schedule AMB CONS/FOLLOW UP PODIATRY Outpatient Referral Routine Diabetic foot ulcer ([facility]) Ordered: 03/07/2020 documented as of this [...] 03/18/2020 10:5 1 EDT us Scan 2 Chief Wellness Officer PROCEDURE/MINOR SURGICAL OR DERABLES Final Result * ORDERS - SCANNED (03/14/2020 7:54 EDT) 03/14/2020 7:54 EDT us Scan 2 Chief Wellness Officer ADMISSION ORDERABLES Final Result * (ABNORMAL) POCT GLUCOSE, INTERFACED (03/12/2020 7:40 EDT) Glucose, POC 144(H) 70 - 100 mg/dL 03/12/2020 7:41 EDT [facility] roll threader operator ID [id number] 03/12/2020 7:41 EDT [facility] HN LAB POC COMMENT (GLUCOSE) Test Performed by Nursing Services 03/12/2020 7:41 EDT [facility] Blood CAPILLARY BLOOD / Unknown 03/12/2020 7:40 EDT 03/12/2020 7:41 EDT us Catherine Booth MD POINT OF CARE TEST ORDERAB LES Final Result [facility] [address] [place] [address] * (ABNORMAL) POCT GLUCOSE, INTERFACED (03/11/2020 21:39 EDT) Glucose, POC 210(H) 70 - 100 mg/dL 03/11/2020 21:42 EDT [facility] roll threader operator ID [id number] 03/11/2020 21:42 EDT [facility] HN LAB POC COMMENT (GLUCOSE) Test Performed by Nursing Services 03/11/2020 21:42 EDT [facility] Blood CAPILLARY BLOOD / Unknown 03/11/2020 21:39 EDT 03/11/2020 21:42 EDT us Catherine Booth MD POINT OF CARE TEST ORDERAB LES Final Result Performing Organization Address City/[facility]/ZIP Co de Phone Number [facility] [address] [place] [address] * (ABNORMAL) POCT GLUCOSE, INTERFACED (03/11/2020 17:49 EDT) Glucose, POC 151(H) 70 - 100 mg/dL 03/11/2020 17:53 EDT [facility] roll threader operator ID [id number] 03/11/2020 17:53 EDT [facility] HN LAB POC COMMENT (GLUCOSE) Test Performed by Nursing Services 03/11/2020 17:53 EDT [facility] Blood CAPILLARY BLOOD / Unknown 03/11/2020 17:49 EDT 03/11/2020 17:53 EDT us Catherine Booth MD POINT OF CARE TEST ORDERAB LES Final Result [facility] [address] [place] [address] * INSERT PICC LINE (03/11/2020 14:00 EDT) Narrative Nory Ware RN - 03/11/2020 14:00 EDT Nory Ware RN ? 03/11/2020 14:03 Central Catheter Insertion First Catheter This Session ?gaming surveillance observer: Patient Location: M606/M606-02 Preliminary Data: Insertion Date: 03/11/20 Insertion Time: 1353 First Photoengraver: Nory Ware RN RN/SANDOR Documenting Procedure: Jessika [...] Line Operators: Number Of Operators: 1 First Photoengraver's Name: Nory Ware RN First Photoengraver's Title: Vascular restaurant delivery driver Unless otherwise noted, there were no complications, no blood loss and no cultures obtained. NORY WARE RN ?? 03/11/2020 ?? 14:01 Jarrett Gutierrez PA-C IV THERAPY ORDERABLES Final Result * (ABNORMAL) POCT GLUCOSE, INTERFACED (03/11/2020 11:57 EDT) Glucose, POC 185(H) 70 - 100 mg/dL 03/11/2020 12:16 EDT [facility] roll threader operator ID [id number] 03/11/2020 12:16 EDT [facility] HN LAB POC COMMENT (GLUCOSE) Test Performed by Nursing Services 03/11/2020 12:16 EDT [facility] Blood CAPILLARY BLOOD / Unknown 03/11/2020 11:57 EDT 03/11/2020 12:16 EDT us Catherine Booth MD POINT OF CARE TEST ORDERAB LES Final Result Performing Organization Address City/[facility]/ZIP Co de Phone Number [facility] [address] [place] [address] * (ABNORMAL) POCT GLUCOSE, INTERFACED (03/11/2020 8:06 EDT) Glucose, POC 110(H) 70 - 100 mg/dL 03/11/2020 14:30 EDT [facility] roll threader operator ID [id number] 03/11/2020 14:30 EDT [facility] HN LAB POC COMMENT (GLUCOSE) Test Performed by Nursing Services 03/11/2020 14:30 EDT [facility] Blood CAPILLARY BLOOD / Unknown 03/11/2020 8:06 EDT 03/11/2020 14:30 EDT us Catherine Booth MD POINT OF CARE TEST ORDERAB LES Final Result [facility] [address] [place] [address] * (ABNORMAL) POCT GLUCOSE, INTERFACED (03/10/2020 21:23 EDT) Glucose, POC 185(H) 70 - 100 mg/dL 03/10/2020 21:26 EDT [facility] roll threader operator ID [id number] 03/10/2020 21:26 EDT [facility] HN LAB POC COMMENT (GLUCOSE) Test Performed by Nursing Services 03/10/2020 21:26 EDT [facility] Blood CAPILLARY BLOOD / Unknown 03/10/2020 21:23 EDT 03/10/2020 21:26 EDT us Catherine Booth MD POINT OF CARE TEST ORDERAB LES Final Result Performing Organization Address City/[facility]/ZIP Co de Phone Number [facility] [address] [place] [address] * (ABNORMAL) POCT GLUCOSE, INTERFACED (03/10/2020 18:42 EDT) Glucose, POC 154(H) 70 - 100 mg/dL 03/10/2020 18:47 EDT [facility] roll threader operator ID [id number] 03/10/2020 18:47 EDT [facility] HN LAB POC COMMENT (GLUCOSE) Test Performed by Nursing Services 03/10/2020 18:47 EDT [facility] Blood CAPILLARY BLOOD / Unknown 03/10/2020 18:42 EDT 03/10/2020 18:47 EDT us Catherine Booth MD POINT OF CARE TEST ORDERAB LES Final Result Performing Organization Address [facility]/ZIP Co de Phone Number [facility] [address] [place] [address] * (ABNORMAL) POCT GLUCOSE, INTERFACED (03/10/2020 12:24 EDT) Glucose, POC 149(H) 70 - 100 mg/dL 03/10/2020 12:26 EDT [facility] roll threader operator ID [id number] 03/10/2020 12:26 EDT [facility] HN LAB POC COMMENT (GLUCOSE) Test Performed by Nursing Services 03/10/2020 12:26 EDT [facility] Blood CAPILLARY BLOOD / Unknown 03/10/2020 12:24 EDT 03/10/2020 12:26 EDT us Catherine Booth MD POINT OF CARE TEST ORDERAB LES Final Result Performing Organization Address City/[facility]/ZIP Co de Phone Number [facility] [address] [place] [address] * (ABNORMAL) POCT GLUCOSE, INTERFACED (03/10/2020 8:33 EDT) Glucose, POC 126(H) 70 - 100 mg/dL 03/10/2020 8:39 EDT [facility] roll threader operator ID [id number] 03/10/2020 8:39 EDT [facility] HN LAB POC COMMENT (GLUCOSE) Test Performed by Nursing Services 03/10/2020 8:39 EDT [facility] Blood CAPILLARY BLOOD / Unknown 03/10/2020 8:33 EDT 03/10/2020 8:39 EDT us Catherine Booth MD POINT OF CARE TEST ORDERAB LES Final Result Performing Organization Address [facility]/ZIP Co de Phone Number [facility] [address] [place] [address] * ELECTROLYTES (03/10/2020 7:01 EDT) Sodium 141 136 - 145 mEq/L 03/10/2020 8:04 EDT [facility] Potassium 4.6 3.5 - 5.0 mEq/L 03/10/2020 8:04 EDT [facility] Chloride 103 96 - 110 mEq/L 03/10/2020 8:04 EDT [facility] CO2 Total 29 22 - 32 mEq/L 03/10/2020 8:04 EDT [facility] Blood VENOUS BLOOD / Unknown Venipuncture / Unknown 03/10/2020 7:01 EDT 03/10/2020 7:35 EDT us Adair Martinez PA-C CHEMISTRY & BLOOD GAS ORDE CHANTEL Final Result Performing Organization Address City/[facility]/ZIP Co de Phone Number [facility] [address] [place] [address] * (ABNORMAL) COMPLETE BLOOD COUNT (03/10/2020 7:01 EDT) WBC 12.33 4.00 - 12.40 K/cmm 03/10/2020 7:42 [facility] RBC 4.61 3.86 - 5.04 M/cmm 03/10/2020 7:42 [facility] Hemoglobin 14.1 11.6 - 15.2 gm/dL 03/10/2020 7:42 [facility] HCT 41.4 34.9 - 44.4 % 03/10/2020 7:42 [facility] MCV 90 81 - 98 fl 03/10/2020 7:42 [facility] MCH 30.6 26.7 - 33.3 pg 03/10/2020 7:42 [facility] MCHC 34.1 32.1 - 35.9 gm/dL 03/10/2020 7:42 [facility] RDW-CV 12.3 <14.7 % 03/10/2020 7:42 [facility] RDW-SD 40.3 <50.4 fl 03/10/2020 7:42 [facility] PLT 424(H) 141 - 377 K/cmm 03/10/2020 7:42 [facility] MPV 9.8 9.5 - 12.7 fl 03/10/2020 7:42 [facility] Blood VENOUS BLOOD / Unknown Venipuncture / Unknown 03/10/2020 7:01 EDT 03/10/2020 7:35 EDT us Adair Martinez PA-C HEMATOLOGY & PF4 ORDERABLE S Final Result [facility] [address] [place] [address] * (ABNORMAL) CREATININE (03/10/2020 7:01 EDT) Creatinine 0.50(L) 0.52 - 1.04 mg/dL 03/10/2020 8:04 T [facility] eGFR 127 >60 mL/min/1.7 3m2 03/10/2020 8:04 EDT [facility] Comment:eGFR calculated gil curtis CKD-EPI equation for non- Americans. Multiply eGFR by 1.16 for patients. Blood VENOUS BLOOD / Unknown Venipuncture / Unknown 03/10/2020 7:01 EDT 03/10/2020 7:35 EDT us Adair Martinez PA-C CHEMISTRY & BLOOD GAS ORDE RABLES Final Result Performing Organization Address City/[facility]/ZIP Co de Phone Number [facility] [address] [place] [address] * (ABNORMAL) POCT GLUCOSE, INTERFACED (03/09/2020 22:50 EDT) [facility] Glucose, POC 150(H) 70 - 100 mg/dL 03/09/2020 22:51 EDT [facility] roll threader operator ID [id number] 03/09/2020 22:51 EDT [facility] HN LAB POC COMMENT (GLUCOSE) Test Performed by Nursing Services 03/09/2020 22:51 EDT [facility] Blood CAPILLARY BLOOD / Unknown 03/09/2020 22:50 EDT 03/09/2020 22:51 EDT us Catherine Booth MD POINT OF CARE TEST ORDERAB LES Final Result Performing Organization Address [facility] Co de Phone Number [facility] [address] [place] [address] * MR FOOT W WO CONTRAST LEFT [...] 70 - 100 mg/dL 03/09/2020 17:22 EDT [facility] roll threader operator ID [id number] 03/09/2020 17:22 EDT [facility] HN LAB POC COMMENT (GLUCOSE) Test Performed by Nursing Services 03/09/2020 17:22 EDT [facility] Blood CAPILLARY BLOOD / Unknown 03/09/2020 17:21 EDT 03/09/2020 17:22 EDT us Catherine Booth MD POINT OF CARE TEST ORDERAB LES Final Result [facility] [address] [place] [address] * (ABNORMAL) POCT GLUCOSE, INTERFACED (03/09/2020 13:23 EDT) Glucose, POC 178(H) 70 - 100 mg/dL 03/09/2020 13:24 EDT [facility] roll threader operator ID [id number] 03/09/2020 13:24 EDT [facility] HN LAB POC COMMENT (GLUCOSE) Test Performed by Nursing Services 03/09/2020 13:24 EDT [facility] Blood CAPILLARY BLOOD / Unknown 03/09/2020 13:23 EDT 03/09/2020 13:24 EDT us Catherine Booth MD POINT OF CARE TEST ORDERAB LES Final Result [facility] [address] [place] [address] * (ABNORMAL) POCT GLUCOSE, INTERFACED (03/09/2020 8:38 EDT) Glucose, POC 108(H) 70 - 100 mg/dL 03/09/2020 8:43 EDT [facility] roll threader operator ID [id number] 03/09/2020 8:43 EDT [facility] HN LAB POC COMMENT (GLUCOSE) Test Performed by Nursing Services 03/09/2020 8:43 EDT [facility] Blood CAPILLARY BLOOD / Unknown 03/09/2020 8:38 EDT 03/09/2020 8:43 EDT us Catherine Booth MD POINT OF CARE TEST ORDERAB LES Final Result Performing Organization Address City/[facility]/ZIP Co de Phone Number [facility] [address] [place] [address] * (ABNORMAL) POCT GLUCOSE, INTERFACED (03/08/2020 20:52 EDT) Glucose, POC 122(H) 70 - 100 mg/dL 03/08/2020 20:58 EDT [facility] roll threader operator ID [id number] 03/08/2020 20:58 EDT [facility] HN LAB POC COMMENT (GLUCOSE) Test Performed by Nursing Services 03/08/2020 20:58 EDT [facility] Blood CAPILLARY BLOOD / Unknown 03/08/2020 20:52 EDT 03/08/2020 20:58 EDT us Catherine Booth MD POINT OF CARE TEST ORDERAB LES Final Result [facility] [address] [place] [address] * POCT GLUCOSE, INTERFACED (03/08/2020 17:44 EDT) Glucose, POC 99 70 - 100 mg/dL 03/08/2020 17:44 EDT [facility] roll threader operator ID [id number] 03/08/2020 17:44 EDT [facility] HN LAB POC COMMENT (GLUCOSE) Test Performed by Nursing Services 03/08/2020 17:44 EDT [facility] Blood CAPILLARY BLOOD / Unknown 03/08/2020 17:44 EDT 03/08/2020 17:44 EDT us Catherine Booth MD POINT OF CARE TEST ORDERAB LES Final Result Performing Organization Address City/[facility]/ZIP Co de Phone Number [facility] [address] [place] [address] * (ABNORMAL) POCT GLUCOSE, INTERFACED (03/08/2020 13:15 EDT) Glucose, POC 142(H) 70 - 100 mg/dL 03/08/2020 13:16 EDT [facility] roll threader operator ID [id number] 03/08/2020 13:16 EDT [facility] HN LAB POC COMMENT (GLUCOSE) Test Performed by Nursing Services 03/08/2020 13:16 EDT [facility] Blood CAPILLARY BLOOD / Unknown 03/08/2020 13:15 EDT 03/08/2020 13:16 EDT us Catherine Booth MD POINT OF CARE TEST ORDERAB LES Final Result [facility] [address] [place] [address] * (ABNORMAL) POCT GLUCOSE, INTERFACED (03/08/2020 7:45 EDT) Glucose, POC 176(H) 70 - 100 mg/dL 03/08/2020 7:47 EDT [facility] roll threader operator ID [id number] 03/08/2020 7:47 EDT [facility] HN LAB POC COMMENT (GLUCOSE) Test Performed by Nursing Services 03/08/2020 7:47 EDT [facility] Blood CAPILLARY BLOOD / Unknown 03/08/2020 7:45 EDT 03/08/2020 7:47 EDT us Catherine Booth MD POINT OF CARE TEST ORDERAB LES Final Result Performing Organization Address [facility] Co de Phone Number [facility] [address] [place] [address] * (ABNORMAL) CREATININE (03/08/2020 7:20 EDT) Creatinine 0.42(L) 0.52 - 1.04 mg/dL 03/08/2020 9:12 EDT [facility] eGFR 134 >60 mL/min/1.7 3m2 03/08/2020 9:12 EDT [facility] Comment:eGFR calculated gil curtis CKD-EPI equation for non- Americans. Multiply eGFR by 1.16 for patients. Blood VENOUS BLOOD / Unknown Venipuncture / Unknown 03/08/2020 7:20 EDT 03/08/2020 8:43 EDT us Adair Martinez PA-C CHEMISTRY & BLOOD GAS ORDE RABLES Final Result Performing Organization Address [facility] Co de Phone Number [facility] [address] [place] [address] * ELECTROLYTES (03/08/2020 7:20 EDT) Sodium 139 136 - 145 mEq/L 03/08/2020 9:12 EDT [facility] Potassium 4.6 3.5 - 5.0 mEq/L 03/08/2020 9:12 EDT [facility] Chloride 105 96 - 110 mEq/L 03/08/2020 9:12 EDT [facility] CO2 Total 25 22 - 32 mEq/L 03/08/2020 9:12 EDT [facility] Blood VENOUS BLOOD / Unknown Venipuncture / Unknown 03/08/2020 7:20 EDT 03/08/2020 8:43 EDT us Adair Martinez PA-C CHEMISTRY & BLOOD GAS ORDE RABLES Final Result [facility] [address] [place] [address] * (ABNORMAL) COMPLETE BLOOD COUNT (03/08/2020 7:20 EDT) WBC 11.24 4.00 - 12.40 K/cmm 03/08/2020 8:25 EDT [facility] RBC 4.29 3.86 - 5.04 M/cmm 03/08/2020 8:25 EDT [facility] Hemoglobin 13.2 11.6 - 15.2 gm/dL 03/08/2020 8:25 EDT [facility] HCT 37.9 34.9 - 44.4 % 03/08/2020 8:25 EDT [facility] MCV 88 81 - 98 fl 03/08/2020 8:25 EDT [facility] MCH 30.8 26.7 - 33.3 pg 03/08/2020 8:25 EDT [facility] MCHC 34.8 32.1 - 35.9 gm/dL 03/08/2020 8:25 EDT [facility] RDW-CV 12.3 <14.7 % 03/08/2020 8:25 EDT [facility] RDW-SD 39.5 <50.4 fl 03/08/2020 8:25 EDT [facility] PLT 406(H) 141 - 377 K/cmm 03/08/2020 8:25 EDT [facility] MPV 9.9 9.5 - 12.7 fl 03/08/2020 8:25 T [facility] Blood VENOUS BLOOD / Unknown Venipuncture / Unknown 03/08/2020 7:20 EDT 03/08/2020 8:11 EDT us Adair Martinez PA-C HEMATOLOGY & PF4 ORDERABLE S Final Result [facility] [address] [place] [address] * VANCOMYCIN TROUGH (03/07/2020 21:29 EDT) Vancomycin Trough 13.0 10.0 - 20.0 ug/mlL 03/07/2020 22:02 EDT [facility] Draw Type Not Given 03/07/2020 22:02 EDT [facility] Blood VENOUS BLOOD / Unknown Venipuncture / Unknown 03/07/2020 21:29 EDT 03/07/2020 21:33 EDT us Cal GARIBAY CHEMISTRY & BLOOD GA S ORDERABLES Final Result Performing Organization Address City/[facility]/ZIP Co de Phone Number [facility] [address] [place] [address] * (ABNORMAL) POCT GLUCOSE, INTERFACED (03/07/2020 21:25 EDT) Glucose, POC 105(H) 70 - 100 mg/dL 03/07/2020 21:30 EDT [facility] roll threader operator ID [id number] 03/07/2020 21:30 EDT [facility] HN LAB POC COMMENT (GLUCOSE) Test Performed by Nursing Services 03/07/2020 21:30 EDT [facility] Blood CAPILLARY BLOOD / Unknown 03/07/2020 21:25 EDT 03/07/2020 21:30 EDT us Catherine Booth MD POINT OF CARE TEST ORDERAB LES Final Result [facility] [address] [place] [address] * (ABNORMAL) POCT GLUCOSE, INTERFACED (03/07/2020 17:40 EDT) Glucose, POC 196(H) 70 - 100 mg/dL 03/07/2020 18:59 EDT [facility] roll threader operator ID [id number] 03/07/2020 18:59 EDT [facility] HN LAB POC COMMENT (GLUCOSE) Test Performed by Nursing Services 03/07/2020 18:59 EDT [facility] Blood CAPILLARY BLOOD / Unknown 03/07/2020 17:40 EDT 03/07/2020 18:59 EDT Catherine Booth MD POINT OF CARE TEST ORDERAB LES Final Result [facility] [address] [place] [address] * (ABNORMAL) ANAEROBE CULTURE/SMEAR(INC. AEROBES), OTHER (03/07/2020 14:21 EDT) Organism ID Few Staphylococcus aureus(A) 03/13/2020 7:50 EDT [facility] Comment:Susceptible to nafci llin, cephalosporins and other beta lactam antibiotics (mecA gene product absent). Organism ID Few Streptococcus agalactiae(A) 03/13/2020 7:50 EDT [facility] Comment:Penicillin and ampic illin are drugs of choice for treatment of beta hemolytic streptococcal infections. Organism ID Few Streptococcus anginosus(A) 03/13/2020 7:50 EDT [facility] Organism ID Moderate Prevotella bivia(A) 03/13/2020 7:50 EDT [facility] Smear Few Neutrophils Present(A) 03/13/2020 7:50 EDT [facility] Smear Few Gram Positive Cocci(A) 03/13/2020 7:50 EDT [facility] Bone ENTIRE TOE / Unknown [...] MICROBIOLOGY - GENERAL ORD ERABLES Final Result [facility] [address] [place] [address] * XR FOOT LEFT 3 OR MORE [...] 70 - 100 mg/dL 03/07/2020 12:26 EDT [facility] roll threader operator ID [id number] 03/07/2020 12:26 EDT [facility] HN LAB POC COMMENT (GLUCOSE) Test Performed by Nursing Services 03/07/2020 12:26 EDT [facility] Blood CAPILLARY BLOOD / Unknown 03/07/2020 12:23 EDT 03/07/2020 12:26 EDT us Cal MOISEBS POINT OF CARE TEST O RDERABLES Final Result [facility] [address] [place] [address] * (ABNORMAL) POCT GLUCOSE, INTERFACED (03/07/2020 11:11 EDT) Glucose, POC 187(H) 70 - 100 mg/dL 03/07/2020 11:21 EDT [facility] roll threader operator ID [id number] 03/07/2020 11:21 EDT [facility] HN LAB POC COMMENT (GLUCOSE) Test Performed by Nursing Services 03/07/2020 11:21 EDT [facility] Blood CAPILLARY BLOOD / Unknown 03/07/2020 11:11 EDT 03/07/2020 11:21 EDT Catherine Booth MD POINT OF CARE TEST ORDERAB LES Final Result [facility] [address] [place] [address] * (ABNORMAL) POCT GLUCOSE, INTERFACED (03/07/2020 7:37 EDT) Glucose, POC 157(H) 70 - 100 mg/dL 03/07/2020 7:41 EDT [facility] roll threader operator ID [id number] 03/07/2020 7:41 EDT [facility] HN LAB POC COMMENT (GLUCOSE) Test Performed by Nursing Services 03/07/2020 7:41 EDT [facility] Blood CAPILLARY BLOOD / Unknown 03/07/2020 7:37 EDT 03/07/2020 7:41 EDT us Catherine Booht MD POINT OF CARE TEST ORDERAB LES Final Result Performing Organization Address City/[facility] Co de Phone Number [facility] [address] [place] [address] * ELECTROLYTES (03/07/2020 7:02 EDT) Pathologist [facility] Sodium 138 136 - 145 mEq/L 03/07/2020 8:22 EDT [facility] Potassium 4.2 3.5 - 5.0 mEq/L 03/07/2020 8:22 EDT [facility] Chloride 103 96 - 110 mEq/L 03/07/2020 8:22 EDT [facility] CO2 Total 27 22 - 32 mEq/L 03/07/2020 8:22 EDT [facility] Blood VENOUS BLOOD / Unknown Venipuncture / Unknown 03/07/2020 7:02 EDT 03/07/2020 7:46 EDT us Catherine Booth MD CHEMISTRY & BLOOD GAS ORDE RABLES Final Result [facility] [address] [place] [address] * (ABNORMAL) CREATININE (03/07/2020 7:02 EDT) Creatinine 0.44(L) 0.52 - 1.04 mg/dL 03/07/2020 8:22 EDT [facility] eGFR 132 >60 mL/min/1.7 3m2 03/07/2020 8:22 EDT [facility] Comment:eGFR calculated usin g CKD-EPI equation for non- Americans. Multiply eGFR by 1.16 for patients. Blood VENOUS BLOOD / Unknown Venipuncture / Unknown 03/07/2020 7:02 EDT 03/07/2020 7:46 EDT us Catherine Booth MD CHEMISTRY & BLOOD GAS ORDE RABLES Final Result [facility] [address] [place] [address] * BUN (03/07/2020 7:02 EDT) BUN 10 10 - 26 mg/dL 03/07/2020 8:22 EDT [facility] Blood VENOUS BLOOD / Unknown Venipuncture / Unknown 03/07/2020 7:02 EDT 03/07/2020 7:46 EDT us Catherine Booth MD CHEMISTRY & BLOOD GAS ORDE RABLES Final Result [facility] [address] [place] [address] * (ABNORMAL) COMPLETE BLOOD COUNT (03/07/2020 7:02 EDT) WBC 11.29 4.00 - 12.40 K/cmm 03/07/2020 7:55 EDT [facility] RBC 4.29 3.86 - 5.04 M/cmm 03/07/2020 7:55 EDT [facility] Hemoglobin 13.0 11.6 - 15.2 gm/dL 03/07/2020 7:55 EDT [facility] HCT 37.2 34.9 - 44.4 % 03/07/2020 7:55 EDT [facility] MCV 87 81 - 98 fl 03/07/2020 7:55 EDT [facility] MCH 30.3 26.7 - 33.3 pg 03/07/2020 7:55 EDT [facility] MCHC 34.9 32.1 - 35.9 gm/dL 03/07/2020 7:55 EDT [facility] RDW-CV 12.2 <14.7 % 03/07/2020 7:55 EDT [facility] RDW-SD 38.5 <50.4 fl 03/07/2020 7:55 EDT [facility] PLT 387(H) 141 - 377 K/cmm 03/07/2020 7:55 EDT [facility] MPV 10.0 9.5 - 12.7 fl 03/07/2020 7:55 EDT [facility] Blood VENOUS BLOOD / Unknown Venipuncture / Unknown 03/07/2020 7:02 EDT 03/07/2020 7:49 EDT us Catherine Booth MD HEMATOLOGY & PF4 ORDERABLE S Final Result Performing Organization Address City/[facility] Co de Phone Number [facility] [address] [place] [address] * (ABNORMAL) POCT GLUCOSE, INTERFACED (03/06/2020 23:53 EDT) [facility] Glucose, POC 262(H) 70 - 100 mg/dL 03/06/2020 23:57 EDT [facility] roll threader operator ID [id number] 03/06/2020 23:57 EDT [facility] HN LAB POC COMMENT (GLUCOSE) Test Performed by Nursing Services 03/06/2020 23:57 EDT [facility] Blood CAPILLARY BLOOD / Unknown 03/06/2020 23:53 EDT 03/06/2020 23:57 EDT us Carrington Padilla MD POINT OF CARE TEST ORDERAB LES Final Result Performing Organization Address [facility]/ZIP Co de Phone Number [facility] [address] [place] [address] * COVID-19 TEST [facility] PCR (03/06/2020 22:00 EDT) Swab ENTIRE NASOPHARYNX / Unknown Swab / Unknown 03/06/2020 22:00 EDT 03/06/2020 22:05 EDT Siobhan Hare PA-C MICROBIOLOGY - GENER AL ORDERABLES Final Result Performing Organization Address [facility] Co de Phone Number [facility] [address] [place] [address] * COVID-19 TESTING (03/06/2020 22:00 EDT) COVID-19 rt-PCR Result Negative Negative 03/07/2020 1:27 EDT [facility] Comment: This test has not [...] history, and epidemiological information. Performed on the [employer] instrument Performing Lab [place] [facility] 03/07/2020 1:27 EDT [facility] Swab ENTIRE NASOPHARYNX / Unknown Swab / Unknown 03/06/2020 22:00 EDT 03/06/2020 22:05 EDT Siobhan Hare PA-C MICROBIOLOGY - GENER AL ORDERABLES Final Result Performing Organization Address [facility] Co de Phone Number [facility] [address] [place] [address] * (ABNORMAL) FRUCTOSAMINE (03/06/2020 19:26 EDT) Fructosamine, S 360(H) 200 - 285 mcmol/L 03/09/2020 8:[address] [facility] Comment: Test Performed by: [facility] [address] [place] [address] [place]: Wiley Fry M.D. Ph.D.; CLIA# [id number] Blood VENOUS BLOOD / Unknown Venipuncture / Unknown 03/06/2020 19:26 EDT 03/06/2020 19:48 EDT Catherine Booth MD CHEMISTRY & BLOOD GAS CLEMENTE GOLDEN Final Result [facility] [address] [place] [address] * (ABNORMAL) HEMOGLOBIN A1C (03/06/2020 19:26 EDT) Pathologist [facility] Hemoglobin A1c 10.4(H) <5.7 % 03/07/2020 8:23 EDT [facility] Comment: Glycemic Status References: Normal: [...] Avg Glucose 252 mg/dL 0 8:23 EDT [facility] Comment:The eAG represents t he A1c result expressed as average glucose in mg/dL. Blood VENOUS BLOOD / Unknown Venipuncture / Unknown 03/06/2020 19:26 EDT 03/06/2020 19:48 EDT Catherine Booth MD CHEMISTRY & BLOOD GAS ORDE RABLES Final Result [facility] [address] [place] [address] * (ABNORMAL) SED. RATE:WESTERGREN (03/06/2020 19:26 EDT) Sed Rate 25(H) 0 - 20 mm/hr 03/06/2020 23:03 EDT [facility] Blood VENOUS BLOOD / Unknown Venipuncture / Unknown 03/06/2020 19:26 EDT 03/06/2020 19:48 EDT Siobhan Hare PA-C HEMATOLOGY & PF4 ORD ERABLES Final Result Performing Organization Address [facility]/ZIP Co de Phone Number [facility] [address] [place] [address] * (ABNORMAL) C REACTIVE PROTEIN (03/06/2020 19:26 EDT) C-Reactive Protein 27.7(H) <10.0 mg/L 03/06/2020 20:12 EDT [facility] Blood VENOUS BLOOD / Unknown Venipuncture / Unknown 03/06/2020 19:26 EDT 03/06/2020 19:48 EDT Siobhan Hare PA-C CHEMISTRY & BLOOD GA S ORDERABLES Final Result [facility] [address] [place] [address] * (ABNORMAL) COMPREHENSIVE METABOLIC PANEL (CMP) (03/06/2020 19:26 EDT) Sodium 139 136 - 145 mEq/L 03/06/2020 20:12 EDT [facility] Potassium 4.2 3.5 - 5.0 mEq/L 03/06/2020 20:12 EDT [facility] Chloride 101 96 - 110 mEq/L 03/06/2020 20:12 [facility] CO2 Total 27 22 - 32 mEq/L 03/06/2020 20:12 [facility] Glucose 186(H) 70 - 100 mg/dL 03/06/2020 20:12 [facility] BUN 13 10 - 26 mg/dL 03/06/2020 20:12 [facility] Creatinine 0.49(L) 0.52 - 1.04 mg/dL 03/06/2020 20:12 [facility] eGFR 128 >60 mL/min/1.7 3m2 03/06/2020 20:12 [facility] Comment:eGFR calculated gil curtis CKD-EPI equation for non- Americans. Multiply eGFR by 1.16 for patients. Total Protein 7.4 6.3 - 8.2 g/dL 03/06/2020 20:12 [facility] Albumin 4.2 3.4 - 4.9 g/dL 03/06/2020 20:12 [facility] Alkaline Phosphatase 108 38 - 126 U/L 03/06/2020 20:12 [facility] AST 18 15 - 46 U/L 03/06/2020 20:12 [facility] ALT 12 <35 U/L 03/06/2020 20:12 [facility] Bilirubin, Total <0.5 <1.4 mg/dL 03/06/20 20 20:12 [facility] Calcium 9.9 8.5 - 10.5 mg/dL 03/06/2020 20:12 [facility] Calculated Calcium 9.7 8.5 - 10.5 mg/dL 03/06/2020 20:12 [facility] Blood VENOUS BLOOD / Unknown Venipuncture / Unknown 03/06/2020 19:26 EDT 03/06/2020 19:48 EDT us Siobhan Hare PA-C CHEMISTRY & BLOOD GA S ORDERABLES Final Result [facility] [address] [place] [address] * (ABNORMAL) COMPLETE BLOOD COUNT AND DIFFERENTIAL (03/06/2020 19:26 EDT) WBC 16.83(H) 4.00 - 12.40 K/cmm 03/06/2020 19:57 [facility] RBC 4.66 3.86 - 5.04 M/cmm 03/06/2020 19:57 [facility] Hemoglobin 14.1 11.6 - 15.2 gm/dL 03/06/2020 19:57 [facility] HCT 40.6 34.9 - 44.4 % 03/06/2020 19:57 [facility] MCV 87 81 - 98 fl 03/06/2020 19:57 [facility] MCH 30.3 26.7 - 33.3 pg 03/06/2020 19:57 [facility] MCHC 34.7 32.1 - 35.9 gm/dL 03/06/2020 19:57 [facility] RDW-CV 12.2 <14.7 % 03/06/2020 19:57 [facility] RDW-SD 39.2 <50.4 fl 03/06/2020 19:57 [facility] PLT 458(H) 141 - 377 K/cmm 03/06/2020 19:57 [facility] MPV 9.7 9.5 - 12.7 fl 03/06/2020 19:57 [facility] % Neutrophils 62.7 % 03/06/2020 19:57 [facility] % Lymphocytes 27.5 % 03/06/2020 19:57 [facility] % Monocytes 6.8 % 03/06/2020 19:57 [facility] % Eosinophils 2.2 % 03/06/2020 19:57 [facility] % Basophils 0.4 % 03/06/2020 19:57 [facility] % Immature Grans 0.4 % 03/06/20 20 19:57 [facility] Absolute Neutrophils 10.55(H) 2.20 - 8.85 K/cmm 03/06/2020 19:57 T [facility] Absolute Lymphocytes 4.62(H) 1.09 - 3.30 K/cmm 03/06/2020 19:57 EDT [facility] Absolute Monocytes 1.15(H) 0.10 - 0.80 K/cmm 03/06/2020 19:57 EDT [facility] Absolute Eosinophils 0.37 0.03 - 0.61 K/cmm 03/06/2020 19:57 EDT [facility] ABS Basophils 0.07 0.01 - 0.11 K/cmm 03/06/2020 19:57 [facility] Absolute Immature Grans 0.07(H) 0.00 - 0.06 K/cmm 03/06/2020 19:57 EDT [facility] Type of Differential: Auto 03/06/2020 19:57 T [facility] Blood VENOUS BLOOD / Unknown Venipuncture / Unknown 03/06/2020 19:26 EDT 03/06/2020 19:48 EDT Siobhan Hare PA-C PACKAGES & DNA PROBE ORDERABLES Final Result Performing Organization Address City/State/[facility] Co de Phone Number [facility] [address] [place] [address] documented in this encounter Visit Diagnoses Diagnosis [...] Aden Sanz RN)[id number] (Given - Provider: Aden Sazn RN) [phone] (Given - Provider: Mallorie Hayward [...]
--- OUTSIDE RECORDS SUMMARY | 2024-05-31 07:33 | XMS_ITS | Encounter Summary ---
Author Organization [facility] Address [address] [place] [address] Care Team Providers Care Foster Care Worker Name Role Phone Unavailable Primary Care Provider Unavailabl e Reason for Visit * Reason Onset Date Comments Update 12/06/2019 Encounter Details Date Type Department Care Team (Late st Contact Info) Description 12/06/[address] [facility] OBGYN Services - [address] [id number] Charu Flynn MD [address] [facility] [place] [address] Update Social History Tobacco Use [...]
--- OUTSIDE RECORDS SUMMARY | 2024-05-31 07:33 | XMS_ITS | Encounter Summary ---
Author Organization [facility] Address [address] [place] [address] Care Team Providers Care Human Resources Records Clerk Name Role Phone Unavailable Primary Care Provider Unavailabl e Encounter Details Date Type Department Care Team (Late st Contact Info) Description 01/03/2020 Orders Only [facility] Adult Primary Care - [address] [id number] Tonja Alejandro PA-C [address] [place] [address] [place] [phone] Social History Tobacco Use Types Packs/Day [...]
--- OUTSIDE RECORDS SUMMARY | 2024-05-31 07:33 | XMS_ITS | Encounter Summary ---
Author Organization [facility] Address [address] [place] [address] Care Team Providers Care Director Of Sales Name Role Phone Unavailable Primary Care Provider Unavailabl e Encounter Details Date Type Department Care Team (Latest Contact Info) Description 12/05/2019 10:30 EDT - 12/05/2019 23:59 EDT Hospital Encounter [facility] Pre-Surgical Testing [address] [place], [place] [id number] Discharge Disposition: Home or Self Care Social [...] instruct them to call us back at [phone] to report symptoms (If patient is in [...] - Visitors must have mask for pickup. [employer] will provide case picker instructions when Pt is ready for [...]
--- OUTSIDE RECORDS SUMMARY | 2024-05-31 07:33 | XMS_ITS | Encounter Summary ---
Author Organization [facility] Address [address] [place] [address] Care Team Providers Care City Councilman Name Role Phone Unavailable Primary Care Provider [...]
--- OUTSIDE RECORDS SUMMARY | 2024-05-31 07:33 | XMS_ITS | Encounter Summary ---
Author Organization [facility] Address [address] [place] [address] Care Team Providers Care Double Needle Operator Lockstitch Name Role Phone Unavailable Primary [...] Expiration Date Visits Re quested Visits Authorized [id number] Closed 11/28/2019 1 1 Reason for Visit * Radiology Services (Routine) - Closed Specialty Diagnoses / Procedures Referred By Contac t Referred To Contact Radiology Diagnoses Left foot pain Sore on toe (HCC-CMS) Procedures MR FOOT W WO CONTRAST LEFT Tonja Alejandro PA-C Phone: tel: fax: Referral ID Status Reason Start Date Expiration Date Visits Re quested Visits Authorized [id number] Closed 11/28/2019 1 1 Encounter Details Date Type Department Care Team (Latest Contact Info) Description 12/05/2019 6:33 EDT - 12/05/2019 10:29 EDT Hospital Encounter [facility] Radiology [facility] - [facility] [place] [address] [place], [place] [id number] Left foot pain; Sore on toe Discharge [...]
--- OUTSIDE RECORDS SUMMARY | 2024-05-31 07:33 | XMS_ITS | Encounter Summary ---
Author Organization [facility] Address [address] [place] [address] Care Team Providers Care Automated Weaver Name Role Phone Unavailable Primary Care Provider Unavailabl e Reason for Visit * Reason Onset Date Comments Labs Only 12/05/2019 Encounter Details Date Type Department Care Team (Late st Contact Info) Description 12/05/2019 Telephone [facility] OBGYN Services - [address] [address] Charu Flynn MD [address] [facility], Level 4 [place] [address] Labs Only Social History Tobacco [...] you can call Pre Op back at [phone]. documented in this encounter Plan of Treatment Not on file documented as of this encounter Visit Diagnoses Not on filedocumented in this encounter
--- OUTSIDE RECORDS SUMMARY | 2024-05-31 07:33 | XMS_ITS | Encounter Summary ---
Author Organization [facility] Address [address] [place] [address] Care Team Providers Care Campus Rep Name Role Phone Unavailable Primary Care Provider Unavailabl e Encounter Details Date Type Department Care Team ([facility] Contact Info) Description 03/11/2020 Documentation Visit [facility] - [address] [place], [place] [address] Marcel Bustamante Social History Tobacco Use Types [...] infusion service. Medication Order Review Admission Criteria: Cultural/advent barriers to home infusion therapy: No Language other than Micronesian: No Vision, speech, hearing, or cognitive impairment: [...] Home Health Agency Contact Info: DANAY Reardon ([phone] or [phone]) Laboratory Contacts: [facility] [phone] Referral Source: Nurse/Draw In Hand Plan: Initial teach completed with Stella for [...] MARCEL BUSTAMANTE 03/11/2020 15:07 * Mily Ovalle [facility] - 03/11/2020 1505 EDT Patient: Cristy Luo [...] nurse assessment. Plan: Begin home infusion therapy. PARK NATURALIST nurse to see patient for administration of first home dose. Mixed and sent enough drug and supplies through 03/19/20. Delivery to [facility] for patient to knot picker cloth at discharge. Anticipated end date 04/20/20. Follow up with patient via telephone within first week of therapy. Monitor labs per care plan weekly. MILY OVALLE RPH 03/17/2020 15:00 documented in this encounter Plan of Treatment Not on file documented as of this encounter Visit Diagnoses Not on filedocumented in this encounter
--- OUTSIDE RECORDS SUMMARY | 2024-05-31 07:33 | XMS_ITS | Encounter Summary ---
Author Organization [facility] Address [address] [place] [address] Care Team Providers Care Medical Records Administrator Name Role Phone Unavailable Primary Care Provider Unavailabl e Reason for Visit * Reason Onset Date Comments Wound Infection 03/04/2020 Toe Pain 03/04/2020 Encounter Details Date Type Department Care Team (Late st Contact Info) Description 03/04/2020 Telephone [facility] Adult Primary Care [address] [address] Tonja Alejandro PA-C [address] [place] [address] [place] [phone] Wound Infection; Toe Pain Social History [...]
--- OUTSIDE RECORDS SUMMARY | 2024-05-31 07:33 | XMS_ITS | Encounter Summary ---
Author Organization [facility] Address [address] [place] [address] Care Team Providers Care Check Inspector Name Role Phone Unavailable Primary Care Provider Unavailabl e Reason for Visit * Reason Onset Date Comments Ankle Pain 12/04/2019 Encounter Details Date Type Department Care Team (Late st Contact Info) Description 12/04/2019 Telephone [facility] Adult Primary Care - [address] [phone] Tonja Alejandro PA-C [facility] [facility] [address] [place] [phone] Ankle Pain Social History Tobacco Use [...] Encounter - Tonja Alejandro PA-C - 12/04/2019 9445 EDT Spoke with patient on the phone. [...]
--- OUTSIDE RECORDS SUMMARY | 2024-05-31 07:34 | XMS_ITS | Encounter Summary ---
Author Organization [facility] Address [address] [place] [address] Care Team Providers Care Head Inspector Name Role Phone None, Provider Primary Care Provider Unavailabl e Reason for Visit * Reason Onset Date Comments Other 10/15/2019 Encounter Details Date Type Department Care Team (Late st Contact Info) Description 10/15/2019 Telephone [facility] OBGYN Services - [facility] [address] [place] [address] Jordyn Wolfe, MARCELO Other Social History Tobacco [...] filedocumented in this encounter Care Teams Head Inspector Relationship Specialty Start Date End Date None, Provider PCP - General 06/18/19 11/25/19 documented as of this encounter
--- OUTSIDE RECORDS SUMMARY | 2024-05-31 07:34 | XMS_ITS | Encounter Summary ---
Author Organization [facility] Address [address] [place] [address] Care Team Providers Care Truck Repair Supervisor Name Role Phone Unavailable Primary Care Provider Unavailabl e Reason for Visit * Reason Comments Social Work Encounter Details Date Type Department Care Team (Late st Contact Info) Description 11/26/2019 Community Health Team [facility] OBGYN Services - [address] [address] Eryn Diaz Social History Tobacco Use Types [...] participate in a loss support group via [employer] (has for the past couple years) - [...] 2019 Time: 11 AM With: Eryn Diaz Price Analyst Location: zoom Status: Active documented in this encounter Plan of Treatment Not on file documented as of this encounter Visit Diagnoses Not on filedocumented in this encounter
--- OUTSIDE RECORDS SUMMARY | 2024-05-31 07:34 | XMS_ITS | Encounter Summary ---
Author Organization [facility] Address [address] [place] [address] Care Team Providers Care Clinical Immunologist Name Role Phone None, Provider Primary Care [...] filedocumented in this encounter Care Teams Clinical Immunologist Relationship Specialty Start Date End Date None, Provider PCP - General 06/18/19 11/25/19 documented as of this encounter
--- OUTSIDE RECORDS SUMMARY | 2024-05-31 07:34 | XMS_ITS | Encounter Summary ---
Author Organization [facility] Address [address] [place] [address] Care Team Providers Care Rose Grading Supervisor Name Role Phone None, Provider Primary Care Provider Unavailabl e Reason for Visit * Reason Comments Dental Pain inside lower abscess near gum.bilateral Encounter Details Date Type Department Care Team (Latest Contact Info) Description 10/28/2019 14:26 EDT - 10/28/2019 15:11 EDT Hospital Encounter [facility] - [facility] [address] [place] [address] Monique Gramajo, GUSTAVO [address] [place] [phone] Gingivitis (Primary Dx) Discharge Disposition: Home or [...] sent through Care Everywhere. * Periodontal Conditions (Croatian) documented in this encounter Medications at Time [...] tried any treatment. Did [facility] but they can't see her until Tuesday. [...] PCR results found No results found for: [id number] HgA1c [ ] 1T pending [ ] [...] teen yrs. ??? Type 2 diabetes mellitus ([facility]) 09/03/2015 Dx approx age 25. Controlled with lifestyle behaviors, wt loss. Had taken lantus in past 80u, Followed by endocrine in [facility]. Stopped few yrs ago until this past month. ??? Anxiety and depression 05/12/2010 Onset teen yrs. Treated with citalopram in approx 2012 - had SI, treated at [facility]. Marijuana prn to help with stress/anxiety sx. [...] 09/04/201515, 08/19. Followed by Dr. L[facility] Social History Tobacco Use ??? Smoking [...] [facility] : Stable MDM 10/28/2019 [...] induced documented in this encounter Care Teams Rose Grading Supervisor Relationship Specialty Start Date End Date None, Provider PCP - General 06/18/19 11/25/19 documented as of this encounter
--- OUTSIDE RECORDS SUMMARY | 2024-05-31 07:34 | XMS_ITS | Encounter Summary ---
Author Organization [facility] Address [address] [place] [address] Care Team Providers Care Marketing Development Representative Name Role Phone None, Provider Primary Care Provider Unavailabl e Encounter Details Date Type Department Care Team (Late st Contact Info) Description 09/02/2019 9:45 EDT Phlebotomy Only [facility] 2 Phlebotomy [address] [place] [address] Jute Bag Cutting Machine Operator, Acc Phlebotomy affected by previous ectopic [...] Quant, 707(H) <5 mIU/ml 09/02/2019 10:30 EDT [facility] Comment: NOTE: : Negative: [...] & BLOOD GAS OR DERABLES Final Result [facility] [address] [place] [address] documented in this encounter Visit Diagnoses Diagnosis affected by previous ectopic - Primary documented in this encounter Care Teams Marketing Development Representative Relationship Specialty Start Date End Date None, Provider PCP - General 06/18/19 11/25/19 documented as of this encounter
--- OUTSIDE RECORDS SUMMARY | 2024-05-31 07:34 | XMS_ITS | Encounter Summary ---
Author Organization [facility] Address [address] [place] [address] Care Team Providers Care Supervisor Calibration Name Role Phone None, Provider Primary Care [...] filedocumented in this encounter Care Teams Supervisor Calibration Relationship Specialty Start Date End Date None, Provider PCP - General 06/18/19 11/25/19 documented as of this encounter
--- OUTSIDE RECORDS SUMMARY | 2024-05-31 07:34 | XMS_ITS | Encounter Summary ---
Author Organization [facility] Address [address] [place] [address] Care Team Providers Care Brand Advisor Name Role Phone None, Provider Primary Care Provider Unavailabl e Reason for Referral * CLINICAL RESEARCH COORDINATOR (Routine) - Specialty Report Received Specialty Diagnoses / Procedures Referred By Contac t Referred To Contact Diagnoses of unknown anatomic location Procedures OB FIRST TRIMESTER (LESS THAN 14 WEEKS) TRANSVAGINAL Charu Flynn MD Phone: tel: fax: Referral ID Status Reason Start Date Expiration Date V isits Requested Visits Authorized [id number] Specialty Report Received 09/03/2019 1 1 Reason for Visit * Reason Onset Date Comments Results 09/03/2019 Encounter Details Date Type Department Care Team (Late st Contact Info) Description 09/03/2019 Telephone [facility] OBGYN Services - [address] [phone] Susana Tomlinson, RN Results Social History Tobacco [...] Tomlinson RN - 09/03/2019 1218 EDT Cristy [facility]: asking if blood work results [...] using Lysol on everything & using hand foaming machine operator. Advsied should put on a mask when [...] Sufficient. Impression 1st Trimester OB scan ,transvaginal +[id number] Single intrauterine gestational sac and yolk sac. [...] Sufficient. Impression 1st Trimester OB scan ,transvaginal +[id number] Single intrauterine gestational sac and yolk sac. A pole cannot beclearly identified on today's examination. Follow-up follow up US in 2 weeks. Comment ========= Z34.8 encounter for supervision of other normal . Resultsdiscussed w/patient. DATE OF SERVICE: 09/05/2019 us Charu Flynn MD [facility] US OB ORDERABLES Fin al Result documented in this encounter Visit Diagnoses Diagnosis of unknown anatomic location- Primary state, incidental of unknown anatomic location state, incidental documented in this encounter Care Teams Brand Advisor Relationship Specialty Start Date End Date None, Provider PCP - General 06/18/19 11/25/19 documented as of this encounter
--- OUTSIDE RECORDS SUMMARY | 2024-05-31 07:34 | XMS_ITS | Encounter Summary ---
Author Organization [facility] Address [address] [place] [address] Care Team Providers Care Dimmer Board Operator Name Role Phone None, Provider Primary Care Provider Unavailabl e Reason for Visit * Reason Comments Initial Visit Encounter Details Date Type Department Care Team (Late st Contact Info) Description 10/01/2019 15:00 EDT Telemedicine [facility] Obstetrics & Midwifery - [address] [phone] Deepali Le MD [address] [place] [address], Level [address] [place] [address] with type 2 diabetes mellitus [...] Mayra Lund MD - 10/01/2019 1500 EDT [facility] Maternal Medicine History & Physical Cristy [...] has ranged from 8.8-11.2. Hasn't seen an special machine stitcher in about a year due to some [...] 10/2018 10w4d ECTOPIC Comments: interstitial diagnosed at [facility]; given MTX 10/26/18 6 SAB 01/2018 6w0d SAB Comments: D&C at [facility] after nonviable on US; had to have repeat D&Bhavna November for retained POCs 5 06/2017 6w0d SAB Comments: D&C at [facility]; nonviable seen on US; fourth with current 4 SAB 02/2017 6w0d SAB Comments: D&C at [facility]; third with current 3 SAB 08/2015 10w0d SAB Comments: D&C at [facility]; 2nd with current 2 SAB 01/2015 9w0d SAB Comments: D&C at [facility]; first current 1 SAB 2005 6w0d SAB Comments: first ; ex ; twin confirmed by US at [facility]; no medical or surgical tx Past gynecological history: Regular monthly periods. Last Pap in January 2019 reports normal, never had abnormal Pap. No STIs. Past medical history: Cristy has a past medical history of Depression, Diabetes mellitus ([facility]), Migraine, unspecified, without mention of intractable [...] the family. FOB great uncles all had [place] under age 35. FOB twin brother at 14 days of unclear reasons. Otherwise, Critsy is not aware of any history of [...] miscarriage. High-risk in first trimester - Reviewed [facility] group practice and clinic flow. - [...] Lund MD PhD MFM Fellow, PGY5 Pager #[phone] Today's visit was provided through telemedicine audio-visual [...] application used to conduct the visit was [employer]. I spent a total of 15 minutes [...] in first trimester (Resolved 11/02/2019) - Reviewed [facility] group practice and clinic flow. - [...] documented as of this encounter Care Teams Dimmer Board Operator Relationship Specialty Start Date End Date None, Provider PCP - General 06/18/19 11/25/19 documented as of this encounter
--- OUTSIDE RECORDS SUMMARY | 2024-05-31 07:34 | XMS_ITS | Encounter Summary ---
Author Organization [facility] Address [address] [place] [address] Care Team Providers Care Warp Worker Name Role Phone Unavailable Primary Care Provider Unavailabl e Reason for Visit * Reason Onset Date Comments Medication Problem 11/27/2019 Encounter Details Date Type Department Care Team (Late st Contact Info) Description 11/27/2019 Telephone [facility] Adult Primary Care - [address] [phone] Tonja Alejandro PA-C [employer] [facility] [address] [place] [phone] Medication Problem Social History Tobacco Use [...]
--- OUTSIDE RECORDS SUMMARY | 2024-05-31 07:34 | XMS_ITS | Encounter Summary ---
Author Organization [facility] Address [address] [place] [address] Care Team Providers Care Waterway Traffic Checker Name Role Phone None, Provider Primary Care Provider Unavailabl e Reason for Visit * Reason Comments Procedure SARAH * Consult (3 - 10 Business Days) - Closed Specialty Diagnoses / Procedures Referred By Contlesli t Referred To Contact Diagnoses in first trimester Andrés Mcfarlane MD Phone: tel: fax: [facility] Obstetrics & Midwifery - [address] [address] Phone: tel: fax: Referral ID Status Reason Start Date Expiration Date V isits Requested Visits Authorized [id number] Closed Specialty Services Required 10/11/2019 1 1 Encounter Details Date Type Department Care Team (Late st Contact Info) Description 10/12/2019 15:00 EDT Initial consult [facility] OBGYN Services - [address] [phone] David Martínez MD [address] [place] [address], [address] [place] [address] Missed (Primary Dx) Social History [...] consent, the patient was placed on the PRESS TOOL MAKER exam table and a bedside ultrasound performed. [...] Primary documented in this encounter Care Teams Waterway Traffic Checker Relationship Specialty Start Date End Date None, Provider PCP - General 06/18/19 11/25/19 documented as of this encounter
--- OUTSIDE RECORDS SUMMARY | 2024-05-31 07:34 | XMS_ITS | Encounter Summary ---
Author Organization [facility] Address [address] [place] [address] Care Team Providers Care Correctional Agency Director Name Role Phone None, Provider Primary Care Provider Unavailabl e Reason for Visit * Reason Onset Date Comments Coordination Of Care 09/18/2019 Encounter Details Date Type Department Care Team (Late st Contact Info) Description 09/18/2019 Telephone [facility] OBGYN Services - [facility] [address] [place] [address] Cristy Richmond, RN Coordination Of Care Social [...] on filedocumented in this encounter Care Teams Correctional Agency Director Relationship Specialty Start Date End Date None, Provider PCP - General 06/18/19 11/25/19 documented as of this encounter
--- OUTSIDE RECORDS SUMMARY | 2024-05-31 07:34 | XMS_ITS | Encounter Summary ---
Author Organization [facility] Address [address] [place] [address] Care Team Providers Care Financial Retirement Plan Specialist Name Role Phone None, Provider Primary Care Provider Unavailabl e Reason for Visit * Reason Comments Nutrition Counseling Type 2 DM first tri mester * Consult (Routine) - Order Cancelled Specialty Diagnoses / Procedures Referred By Kit goode Referred To Contact Obstetrics Diagnoses with type 2 diabetes mellitus in first trimester Mayra Lund MD Phone: tel: fax: [facility] [address] [address] Phone: tel: fax: Referral ID Status Reason Start Date Expiration Date Visits Requested Visits Authorized [id number] Order Cancelled Specialty Services Required 10/01/2019 1 1 Encounter Details Date Type Department Care Team (Late st Contact Info) Description 10/08/2019 14:00 EDT Nutrition [facility] [address] [address] Motor Coach Chauffeur, [facility] Ep4 Obgyn Class 2 severe obesity due to excess calories with serious comorbidity in adult, unspecified BMI ([facility]); Type 2 diabetes mellitus with other specified complication, unspecified whether correction insulin use ([facility]) Social History Tobacco Use Types [...] Carline Weathers, LUCILLE - 10/08/2019 1400 EDT tennis desk team member Clinic Initial Nutrition Assessment Form Attempted Telehealth visit, but Telehealth is not available (for me or for the patient). Obtained verbal consent from patient or the patient's adult sales promotion representative for use of the telephone to [...] with serious comorbidity in adult, unspecified BMI ([facility]) Type 2 diabetes mellitus with other specified complication, unspecified whether long distance billing operator insulin use ([facility]) documented in this encounter Care Teams Financial Retirement Plan Specialist Relationship Specialty Start Date End Date None, Provider PCP - General 06/18/19 11/25/19 documented as of this encounter
--- OUTSIDE RECORDS SUMMARY | 2024-05-31 07:34 | XMS_ITS | Encounter Summary ---
Author Organization [facility] Address [address] [place] [address] Care Team Providers Care Melter Supervisor Open Hearth Furnace Name Role Phone None, Provider Primary Care [...] on filedocumented in this encounter Care Teams Melter Supervisor Open Hearth Furnace Relationship Specialty Start Date End Date None, Provider PCP - General 06/18/19 11/25/19 documented as of this encounter
--- OUTSIDE RECORDS SUMMARY | 2024-05-31 07:34 | XMS_ITS | Encounter Summary ---
Author Organization [facility] Address [address] [place] [address] Care Team Providers Care Manager Global Communications Name Role Phone None, Provider Primary Care Provider Unavailabl e Reason for Visit * Reason Comments Social Work Encounter Details Date Type Department Care Team (Late st Contact Info) Description 10/12/2019 Community Health Team [facility] OBGYN Services - [address] [address] Eryn Diaz Social History Tobacco Use Types [...] Progress Notes * Eryn Diaz - 10/12/2019 2158 EDT SW rec'd call from RN Jordyn [...] step francois, and 3 foster children in [place]. Pt grateful Fermin took the children to [...] the following re care coordination: - Disc [facility] therapeutic group practice in [place] that specializes in working with women who have exp losses - Disc psychiatric and add'l loss support that can be provided [facility] or Dr. 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 Fermin is a ignition mechanic ($15/hour) and still working. SW disc [...] 2019 Time: 11:30 AM With: Eryn Diaz Clinical Investigator Location: ph Status: Active documented in this encounter Plan of Treatment Not on file documented as of this encounter Visit Diagnoses Not on filedocumented in this encounter Care Teams Manager Global Communications Relationship Specialty Start Date End Date None, Provider PCP - General 06/18/19 11/25/19 documented as of this encounter
--- OUTSIDE RECORDS SUMMARY | 2024-05-31 07:34 | XMS_ITS | Encounter Summary ---
Author Organization [facility] Address [address] [place] [address] Care Team Providers Care Optical Effects Line Up Person Name Role Phone None, Provider Primary Care Provider Unavailabl e Reason for Visit * Reason Comments Injections RhoGAM Encounter Details Date Type Department Care Team (Late st Contact Info) Description 10/03/2019 10:30 EDT Office Visit [facility] Obstetrics & Midwifery - [facility] [address] [place] [address] Nurse, Mfm First trimester bleeding (Primary Dx) [...] eltoid documented in this encounter Care Teams Optical Effects Line Up Person Relationship Specialty Start Date End Date None, Provider PCP - General 06/18/19 11/25/19 documented as of this encounter
--- OUTSIDE RECORDS SUMMARY | 2024-05-31 07:34 | XMS_ITS | Encounter Summary ---
Author Organization [facility] Address [address] [place] [address] Care Team Providers Care Bookie Name Role Phone None, Provider Primary Care Provider Unavailabl e Reason for Visit * Reason Onset Date Comments Vaginal Bleeding 10/02/2019 Encounter Details Date Type Department Care Team (Late st Contact Info) Description 10/02/2019 Telephone [facility] Obstetrics & Midwifery - [facility] [address] [place] [address] Jenny Heart, RN Vaginal Bleeding Social History [...] on filedocumented in this encounter Care Teams Bookie Relationship Specialty Start Date End Date None, Provider PCP - General 06/18/19 11/25/19 documented as of this encounter
--- OUTSIDE RECORDS SUMMARY | 2024-05-31 07:34 | XMS_ITS | Encounter Summary ---
Author Organization [facility] Address [address] [place] [address] Care Team Providers Care Php Programmer Name Role Phone None, Provider Primary Care Provider Unavailabl e Reason for Referral * Consult (3 - 10 Business Days) - Closed Specialty Diagnoses / Procedures Referred By Contac t Referred To Contact Diagnoses in first trimester Andrés Frazier MD Phone: tel: fax: [facility] Obstetrics & Midwifery - [address] [address] Phone: tel: fax: Referral ID Status Reason Start Date Expiration Date V isits Requested Visits Authorized [id number] Closed Specialty Services Required 10/11/2019 1 1 Question Answer Reason for Request: Failed Reason for Visit * Reason Comments Vaginal Bleeding see tcall. Ambulator y into triage, 9.5wks , last night started with bright red bleeding I've changed the panty liner a few times since last night. Followed by [facility] machine sizer highrisk. Intermittent cramping. Hx 6 miscarriages. Encounter Details Date Type Department Care Team (Late Contact Info) Description 10/11/2019 20:54 EDT - 10/12/2019 0:13 EDT Emergency [facility] Emergency Department - [address] [id number] Kylah Whitaker PA-C [address] [facility], [address] [address] Alessandro Delgadillo MD [address] [facility], [address] [address] in first trimester (Primary Dx) [...] you for coming to the ED at [facility] for your medical care. Whenever we see [...] a failed . 2) Please follow-up with ONLINE PROGRAM COORDINATOR. They should call you within 48 [...] or Self Longterm documented in this encounter Consult Notes * [...] while on meds);no current mood issues. Past credit risk specialist Hx: See HPI. PMedHx: Past Medical History: Diagnosis Date ??? Depression ??? Diabetes mellitus ([facility]) ??? Migraine, unspecified, without mention of intractable [...] file Gets together: Not on file Attends yarsanism service: Not on file Active member of [...] Last menstrual period: Per discussion with the health counselor, patient is unsure. Per the most recent [...] for nonviable early in the first trimester. [place] Journal of Medicine 369.15 (2013): 1837-3325. ?? Assessment: Pt is a 34 y.o. [...] pursuing a clinic procedure or D&C in [facility] OR. We discussed that if she wants a D&C in the main OR, she will have to be conscious of her NPO status tomorrow for an add on procedure. Alternatively, we can schedule her procedure for Tue. She confirms understanding. Will plan to let PRESS CUTTER team and clinic staff know about our [...] with Dr. Lund. Elise Larson MD PGY-3, ONLINE PROGRAM COORDINATOR Pager [phone] 10/12/2019 1:22 Cosigned by Mayra Lund MD at 10/12/2019 7:57 EDT Associated attestation - Mayra Lund MD - 10/12/2019 8097 EDT Attestation: I saw and examined the [...] Lund MD PhD MFM Fellow, PGY5 Pager #[phone] Mayra Lund MD 10/12/2019 7:55 documented in this encounter ED Notes * Ann Giang RN - 10/12/2019 0012 EDT Ordered for discharge. Aftercare instructions, follow up, s/s to return reviewed with pt. IV removed, VSS, ambulatory upon discharge. * Ann Giang RN - 10/11/20192231 EDT Ultrasound at bedside. * Alessandro Delgadillo MD - 10/11/2019 720 EDT This patient received an evaluation and medical screening exam for emergent medical conditions at the [facility] on 10/11/2019. This note was created [...] or abdominal pain. Patient called the on-call ONLINE PROGRAM COORDINATOR and they instructed her to come [...] to visualize the itself. Plan to follow ONLINE PROGRAM COORDINATOR recommendations with CBC, type and screen, beta quant, transvaginalultrasound. Will consult ONLINE PROGRAM COORDINATOR with the results and asked further direction. An EKG was obtained and independenly interpreted: NA Laboratory results independently reviewed, significant for: Quant beta 2954, leukocytosis of 17.66, antibody screen positive Imaging obtained was reviewed and independently interpreted: Transvaginal ultrasound demonstrated a failed intrauterine ONLINE PROGRAM COORDINATOR was consulted when I was informed [...] female a failed based on ultrasound, history. ONLINE PROGRAM COORDINATOR was consulted who thought that she could be discharged home for definitive management in the clinic or ORtomorrow with D&C or medical expulsion therapy. Patient is very comfortable with this plan, herlabs are reassuring. She was discharged in stable condition with close OB follow-up; the RhoGam is l ikely still active from her last one as antibodies are noted ED Course: (2811) I evaluated the patient. Curriculum And Instruction Specialist was at bedside discussing the results [...] for nonviable early in the first trimester. [place] Journal of Medicine 369.15 (2013): 0723-5112. I have personally reviewed the images and [...] Last menstrual period: Per discussion with the health counselor, patient is unsure. Per the most recent [...] Last menstrual period: Per discussion with the health counselor, patient isunsure. Per the most recent OB [...] for nonviablepregnancy early in the first trimester. [place] Journal of Ephvgamu510.15 (2013): 5080-5368. I have personally reviewed the images and the above interpretation andagree with the findings. Andrés Frazier MD IMG US OB ORDERABLES Penny l Result * ANTIBODY IDENTIFICATION (10/11/2019 21:09 EDT) Antibody Identification Anti-D; patient recd RhIg 10/11/2019 23:41 EDT [facility] BLOOD BANK Blood VENOUS BLOOD / Unknown Venipuncture / Unknown 10/11/2019 21:09 EDT 10/11/2019 21:16 EDT Elise Charles MD BLOOD BANK TESTS Final Res ult [facility] BLOOD BANK [address] [facility] [place] [address] * HN LAB DIFF PATH REVIEW - HEME (10/11/2019 21:09 EDT) Pathologist Review Comment 10/12/19 13:41 ?? Elise Hightower MD 10/12/2019 13:41 EDT [facility] LABORATORY SERVICES Blood VENOUS BLOOD / Unknown Venipuncture / Unknown 10/11/2019 21:09 EDT 10/11/2019 21:13 EDT us Andrés Frazier MD HEMATOLOGY & PF4 ORDERABL ES Final Result [facility]ORY [facility] [address] [place] [address] * TYPE AND SCREEN (10/11/2019 21:09 EDT) ABO B 10/11/2019 22:43 EDT [facility] BLOOD BANK Rh Factor Negative 10/11/2019 22:43 EDT [facility] BLOOD BANK Antibody Screen Positive 10/11/2019 22:43 EDT [facility] BLOOD BANK Specimen Expires: 10/14/2019 @ 23:59 10/11/2019 22:43 EDT [facility] BLOOD BANK Blood VENOUS BLOOD / Unknown Venipuncture / Unknown 10/11/2019 21:09 EDT 10/11/2019 21:16 EDT us Elise Charles MD BLOOD BANK TESTS Edited Re sult - Final Performing Organization Address City/[facility]/ZIP Co de Phone Number [facility] BLOOD BANK [address] [place] [address] * (ABNORMAL) DIFFERENTIAL, AUTOMATED MANUAL (10/11/2019 21:09 EDT) % Neutrophils 52.6 % 10/11/2019 23:25 EDT [facility] % Lymphocytes 25.0 % 10/11/2019 23:25 EDT [facility] % Atypical Lymphocytes 6.9 % 10/11/2019 23:25 EDT [facility] % Monocytes 8.6 % 10/11/2019 23:25 EDT [facility] % Eosinophils 5.2 % 10/11/2019 23:25 EDT [facility] % Basophils 1.7 % 10/11/2019 23:25 [facility] Absolute Neutrophils 9.29(H) 2.20 - 8.85 K/cmm 10/11/2019 23:25 EDT [facility] SERVICES Absolute Lymphocytes 4.42(H) 1.09 - 3.30 K/cmm 10/11/2019 23:25 [facility] Absolute Atypical Lymphocytes 1.22 K/cmm 10/11/2019 23:25 T [facility] Absolute Monocytes 1.52(H) 0.10 - 0.80 K/cmm 10/11/2019 23:25 [facility] Absolute Eosinophils 0.92(H) 0.03 - 0.61 K/cmm 10/11/2019 23:25 T [facility] ABS Basophils 0.30(H) 0.01 - 0.11 K/cmm 10/11/2019 23:25 T [facility] Blood VENOUS BLOOD / Unknown Venipuncture / Unknown 10/11/2019 21:09 EDT 10/11/2019 21:13 EDT Andrés Frazier MD HEMATOLOGY & PF4 ORDERABL ES Final Result [facility] [address] [place] [address] * (ABNORMAL) QUANT BETA HCG, (10/11/2019 21:09 EDT) Beta HCG Quant, 2,954(H) <5 mIU/ml 10/11/2019 22:54 EDT [facility] Comment: NOTE: : Negative: Less [...] Final Result [facility] [address] [place] [address] * (ABNORMAL) COMPLETE BLOOD COUNT AND DIFFERENTIAL [...] SERVICES RDW-CV 12.1 <14.7 % 10/11/2019 22:16 [facility] RDW-SD 39.5 <50.4 fl 10/11/2019 22:16 [facility] PLT 443(H) 141 - 377 K/cmm 10/11/2019 22:16 [facility] MPV 9.5 9.5 - 12.7 fl 10/11/2019 22:16 [facility] Type of Differential: Manual 10/11/2019 22:16 [facility] Blood VENOUS BLOOD / Unknown Venipuncture / Unknown 10/11/2019 21:09 EDT 10/11/2019 21:13 EDT us Andrés Frazier MD PACKAGES & DNA PROBE ORDE CHANTEL Final Result [facility] [address] [place] [address] * BLOOD BANK HOLD (10/11/2019 21:09 EDT) Hold BB Spec will exp at 23:59, 3 days from collect date 10/11/2019 21:31 EDT [facility] BLOOD BANK Blood VENOUS BLOOD / Unknown Venipuncture / Unknown 10/11/2019 21:09 EDT 10/11/2019 21:16 EDT us Elise Charles MD BLOOD BANK TESTS Final Res ult [facility] BLOOD BANK [address] [place] [address] * HOLD SST (10/11/2019 21:09 EDT) Hold Hold 10/11/2019 22:16 EDT [facility] Blood VENOUS BLOOD / Unknown Venipuncture / Unknown 10/11/2019 21:09 EDT 10/11/2019 21:13 EDT us Elise Charles MD LAB INFO SERVICE AND SUPPO RT & PHONE RESULT Final Result [facility] [address] [place] [address] * HOLD LAVENDER TOP (10/11/2019 21:09 EDT) Hold Hold 10/11/2019 22:16 EDT [facility] Blood VENOUS BLOOD / Unknown Venipuncture / Unknown 10/11/2019 21:09 EDT 10/11/2019 21:13 EDT us Elise hCarles MD LAB INFO SERVICE AND SUPPO RT & PHONE RESULT Final Result [facility] [address] [place] [address] * HOLD GREEN TOP (10/11/2019 21:09 EDT) Hold Hold 10/11/2019 22:16 EDT [facility] Blood VENOUS BLOOD / Unknown Venipuncture / Unknown 10/11/2019 21:09 EDT 10/11/2019 21:13 EDT us Elise Charles MD LAB INFO SERVICE AND SUPPO RT & PHONE RESULT Final Result [facility] [address] [place] [address] * HOLD BLUE TOP (10/11/2019 21:09 EDT) Hold Hold 10/11/2019 22:16 EDT [facility] Blood VENOUS BLOOD / Unknown Venipuncture / Unknown 10/11/2019 21:09 EDT 10/11/2019 21:13 EDT us Elise Charles MD LAB INFO SERVICE AND SUPPO RT & PHONE RESULT Final Result [facility] [address] [place] [address] documented in this encounter Visit Diagnoses Diagnosis [...] RN) documented in this encounter Care Teams Php Programmer Relationship Specialty Start Date End Date None, Provider PCP - General 06/18/19 11/25/19 documented as of this encounter
--- OUTSIDE RECORDS SUMMARY | 2024-05-31 07:34 | XMS_ITS | Encounter Summary ---
Author Organization [facility] Address [address] [place] [address] Care Team Providers Care Multimedia Project Manager Name Role Phone None, Provider Primary Care Provider Unavailabl e Reason for Visit * Reason Onset Date Comments Surgery Scheduling 11/20/2019 Encounter Details Date Type Department Care Team (Late st Contact Info) Description 11/20/2019 Telephone [facility] OBGYN Services - [facility] [address] [place], [place] [id number] Pamela Sifuentes MD [address] [place] [phone] Surgery Scheduling Social History Tobacco Use [...] on filedocumented in this encounter Care Teams Multimedia Project Manager Relationship Specialty Start Date End Date None, Provider PCP - General 06/18/19 11/25/19 documented as of this encounter
--- OUTSIDE RECORDS SUMMARY | 2024-05-31 07:34 | XMS_ITS | Encounter Summary ---
Author Organization [facility] Address [address] [place] [address] Care Team Providers Care Mixer Whipped Topping Name Role Phone None, Provider Primary Care Provider Unavailabl e Reason for Visit * Reason Onset Date Comments Other 10/16/2019 Follow up. Encounter Details Date Type Department Care Team (Late st Contact Info) Description 10/16/2019 Telephone [facility] OBGYN Services - [address] [address] Jordyn Wolfe, MARCELO Other (Follow up.) Social [...] miscarriage. Patient did speak to social worker clinical Elo Diaz who reached out to me [...] to speak to nurse or social worker clinical. Patient states currently feels well supported and expressed gratitude towards our staff for supporting her also. * Telephone Encounter - Jordyn Wolfe RN - 10/16/2019 1427 EDT Call to social worker clinicalkalia Diaz.Asked best number/time to call. documented in this encounter Plan of Treatment Not on file documented as of this encounter Visit Diagnoses Not on filedocumented in this encounter Care Teams Mixer Whipped Topping Relationship Specialty Start Date End Date None, Provider PCP - General 06/18/19 11/25/19 documented as of this encounter
--- OUTSIDE RECORDS SUMMARY | 2024-05-31 07:34 | XMS_ITS | Encounter Summary ---
Author Organization [facility] Address [address] [place] [address] Care Team Providers Care Steam Presser Name Role Phone Unavailable Primary Care Provider Unavailabl e Encounter Details Date Type Department Care Team (Late st Contact Info) Description 11/28/2019 Orders Only [facility] Radiology - Main [place] [address] [place] [address] Tracey Veloz MD [address] [place], [place] [id number] Social History Tobacco Use Types Packs/Day Years [...]
--- OUTSIDE RECORDS SUMMARY | 2024-05-31 07:34 | XMS_ITS | Encounter Summary ---
Author Organization [facility] Address [address] [place] [address] Care Team Providers Care Fall Intern Name Role Phone None, Provider Primary Care Provider Unavailabl e Encounter Details Date Type Department Care Team (Late st Contact Info) Description 09/05/2019 Orders Only [facility] OBGYN Services - [address] [address] Jonas Ojeda MD [address] [place] [address] [phone] Less than 8 weeks gestation [...] incidental documented in this encounter Care Teams Fall Intern Relationship Specialty Start Date End Date None, Provider PCP - General 06/18/19 11/25/19 documented as of this encounter
--- OUTSIDE RECORDS SUMMARY | 2024-05-31 07:34 | XMS_ITS | Encounter Summary ---
Author Organization [facility] Address [address] [place] [address] Care Team Providers Care Epic Beacon Analyst Name Role Phone None, Provider Primary Care Provider Unavailabl e Reason for Visit * Reason Onset Date Comments Follow-up 10/15/2019 Encounter Details Date Type Department Care Team (Late st Contact Info) Description 10/15/2019 Telephone [facility] OBGYN Services - [facility] [address] [place] [address] Susana Tomlinson, RN Follow-up Social History Tobacco [...] thru this again. She will call the [facility] at [phone] to set up a Control talk to [...] filedocumented in this encounter Care Teams Epic Beacon Analyst Relationship Specialty Start Date End Date None, Provider PCP - General 06/18/19 11/25/19 documented as of this encounter
--- OUTSIDE RECORDS SUMMARY | 2024-05-31 07:34 | XMS_ITS | Encounter Summary ---
Author Organization [facility] Address [address] [place] [address] Care Team Providers Care Microfilm Camera Operator Name Role Phone None, Provider Primary Care Provider Unavailabl e Encounter Details Date Type Department Care Team (Late st Contact Info) Description 10/04/2019 Orders Only [facility] Obstetrics & Midwifery - [address] [address] Kylah Jimenes, RN Social History Tobacco Use [...] on filedocumented in this encounter Care Teams Microfilm Camera Operator Relationship Specialty Start Date End Date None, Provider PCP - General 06/18/19 11/25/19 documented as of this encounter
--- OUTSIDE RECORDS SUMMARY | 2024-05-31 07:34 | XMS_ITS | Encounter Summary ---
Author Organization [facility] Address [address] [place] [address] Care Team Providers Care Welding Machine Operator/Tender Name Role Phone None, Provider Primary Care Provider Unavailabl e Reason for Visit * Reason Onset Date Comments Other 10/12/2019 Follow up call , seen in ED with vaginal bleeding, miscarriage. Encounter Details Date Type Department Care Team (Late st Contact Info) Description 10/12/2019 Telephone [facility] OBGYN Services - [facility] [address] [place] [address] Jordyn Wolfe, MARCELO Other (Follow up call [...] do this today. Per communication with nurse marketing strategy manager Mary, will be able to staff procedure today. Appointment set up for [address] Martínez will call patient to confirm plan. * Telephone Encounter - Jordyn Wolfe RN - 10/12/2019 1027 EDT Call to psych social worker Niru Diaz. Niru will call patient as follow up cosmetic counselor to miscarriage. * Telephone Encounter - [...] on filedocumented in this encounter Care Teams Welding Machine Operator/Tender Relationship Specialty Start Date End Date None, Provider PCP - General 06/18/19 11/25/19 documented as of this encounter
--- OUTSIDE RECORDS SUMMARY | 2024-05-31 07:34 | XMS_ITS | Encounter Summary ---
Author Organization [facility] Address [address] [place] [address] Care Team Providers Care Supervising Editor News Reel Name Role Phone None, Provider Primary Care Provider Unavailabl e Reason for Visit * Reason Onset Date Comments Appointment Related 10/12/2019 Encounter Details Date Type Department Care Team (Late st Contact Info) Description 10/12/2019 Telephone [facility] OBGYN Services - [facility] [address] [place] [address] Karoline Wolfe, MARCELO Appointment Related Social History [...] Call to patient. I spoke to patient. information technology project manager Mary Hurtado and Dr. Martínez approve [...] Primary documented in this encounter Care Teams Supervising Editor News Reel Relationship Specialty Start Date End Date None, Provider PCP - General 06/18/19 11/25/19 documented as of this encounter
--- OUTSIDE RECORDS SUMMARY | 2024-05-31 07:34 | XMS_ITS | Encounter Summary ---
Author Organization [facility] Address [address] [place] [address] Care Team Providers Care Acid Concentrator Name Role Phone None, Provider Primary Care Provider Unavailabl e Reason for Visit * Reason Onset Date Comments Vaginal Bleeding 10/11/2019 Encounter Details Date Type Department Care Team (Late st Contact Info) Description 10/11/2019 Telephone [facility] OBGYN [address] [place], [place] [id number] Mayra Lund MD [address] [place] [address] Vaginal Bleeding Social History Tobacco [...] Lund MD PhD MFM Fellow, PGY5 Pager #[phone] documented in this encounter Plan of Treatment Not on file documented as of this encounter Visit Diagnoses Not on filedocumented in this encounter Care Teams Acid Concentrator Relationship Specialty Start Date End Date None, Provider PCP - General 06/18/19 11/25/19 documented as of this encounter
--- OUTSIDE RECORDS SUMMARY | 2024-05-31 07:34 | XMS_ITS | Encounter Summary ---
Author Organization [facility] Address [address] [place] [address] Care Team Providers Care Hedge Fund Accountant Name Role Phone None, Provider Primary Care Provider Unavailabl e Reason for Visit * Reason Onset Date Comments Pharmacy 10/29/2019 Encounter Details Date Type Department Care Team (Late st Contact Info) Description 10/29/2019 Telephone [facility] Urgent Care - [facility] [address] [place] [address] Monique Gramajo, GUSTAVO [address] [place] [address] Pharmacy Social History Tobacco Use [...] on filedocumented in this encounter Care Teams Hedge Fund Accountant Relationship Specialty Start Date End Date None, Provider PCP - General 06/18/19 11/25/19 documented as of this encounter
--- OUTSIDE RECORDS SUMMARY | 2024-05-31 07:34 | XMS_ITS | Encounter Summary ---
Author Organization [facility] Address [address] [place] [address] Care Team Providers Care Control Room Tender Name Role Phone None, Provider Primary [...] on filedocumented in this encounter Care Teams Control Room Tender Relationship Specialty Start Date End Date None, Provider PCP - General 06/18/19 11/25/19 documented as of this encounter
--- OUTSIDE RECORDS SUMMARY | 2024-05-31 07:34 | XMS_ITS | Encounter Summary ---
Author Organization [facility] Address [address] [place] [address] Care Team Providers Care Spot Billing Clerk Name Role Phone None, Provider Primary [...] on filedocumented in this encounter Care Teams Spot Billing Clerk Relationship Specialty Start Date End Date None, Provider PCP - General 06/18/19 11/25/19 documented as of this encounter
--- OUTSIDE RECORDS SUMMARY | 2024-05-31 07:34 | XMS_ITS | Encounter Summary ---
Author Organization [facility] Address [address] [place] [address] Care Team Providers Care Fire Investigation Manager Name Role Phone None, Provider Primary Care Provider Unavailabl e Reason for Visit * Reason Onset Date Comments COVID-19 11/22/2019 Encounter Details Date Type Department Care Team (Late st Contact Info) Description 11/22/2019 Orders Only [facility] OBGYN Services - [address] [address] Susana Tomlinson, RN Sterilization (Primary Dx) Social [...] documented in this encounter Care Teams Fire Investigation Manager Relationship Specialty Start Date End Date None, Provider PCP - General 06/18/19 11/25/19 documented as of this encounter
--- OUTSIDE RECORDS SUMMARY | 2024-05-31 07:34 | XMS_ITS | Encounter Summary ---
Author Organization [facility] Address [address] [place] [address] Care Team Providers Care Graphic Design Manager Name Role Phone None, Provider Primary Care Provider Unavailabl e Reason for Visit * Reason Comments Advice Only patient states I w ant a tubal, cut, tie, burn. I want no more chances of or miscarriage Encounter Details Date Type Department Care Team (Latest Contact Info) Description 11/02/2019 8:15 EDT Initial consult [facility] OBGYN Services - [facility] [address] [place] [address] Patricia Sifuentes MD [address] [place] [phone] Consultation for female sterilization (Primary Dx) [...] 11/02/2019 9:08 Obstetrics & Gynecology, PGY-1 Pager [phone] * Callum Callejas MD - 11/02/2019 0815 [...] documented as of this encounter Care Teams Graphic Design Manager Relationship Specialty Start Date End Date None, Provider PCP - General 06/18/19 11/25/19 documented as of this encounter
--- OUTSIDE RECORDS SUMMARY | 2024-05-31 07:34 | XMS_ITS | Encounter Summary ---
Author Organization [facility] Address [address] [place] [address] Care Team Providers Care Account Manager B2B Name Role Phone None, Provider Primary Care Provider Unavailabl e Reason for Visit * Reason Comments Social Work Encounter Details Date Type Department Care Team (Late st Contact Info) Description 10/16/2019 Community Health Team [facility] OBGYN Services - [address] [address] Eryn Diaz Social History Tobacco Use Types [...] lbs. Pt said [facility] ([facility]ft) that she believes caused SI/SP. Pt rep she was on a bridge in [place] and about to jump to lots of [...] SW rec pt at least check out [employer] website - described this thx practice was [...] dates, SW will refer pt to contact stylemarks to facilitate record request. Jordyn will submit [facility] SW referral later this week; SW will zandra pt status as pending for now. Next SW appt 11/04 via ph. SW will email pt zoom meeting info ([email or web address]). [facility] Total Time: 1 hour total 35 min via ph with pt 10 min care coord 15 min charting Referral: Yobany José and PMHNP Denita Brantley Follow up: Date: Tuesday, November 05, 2019 Time: 10 AM With: Eryn Diaz Oracle Identity Management Consultant Location: ph Status: Pending documented in this encounter Plan of Treatment Not on file documented as of this encounter Visit Diagnoses Not on filedocumented in this encounter Care Teams Account Manager B2B Relationship Specialty Start Date End Date None, Provider PCP - General 06/18/19 11/25/19 documented as of this encounter
--- OUTSIDE RECORDS SUMMARY | 2024-05-31 07:34 | XMS_ITS | Encounter Summary ---
Author Organization [facility] Address [address] [place] [address] Care Team Providers Care Rubber Press Tender Name Role Phone Unavailable Primary Care [...]
--- OUTSIDE RECORDS SUMMARY | 2024-05-31 07:34 | XMS_ITS | Encounter Summary ---
Author Organization [facility] Address [address] [place] [address] Care Team Providers Care Informatics Nurse Specialist Name Role Phone None, Provider Primary Care Provider Unavailabl e Reason for Visit * Reason Onset Date Comments Advice Only 10/02/2019 Encounter Details Date Type Department Care Team (Late st Contact Info) Description 10/02/2019 Telephone [facility] OBGYN Services - [address] [id number] Deepali Le MD [address] [facility], [address] [place] [address] Advice Only Social History Tobacco [...] Also- is she interested in CF/SMA testing? [facility] phone number left and requested patient call back. * Telephone Encounter - Cynthia Costello - 10/02/2019 0848 EDT I called pt [...] a nurse. She can be reached at: [phone] documented in this encounter Plan of Treatment Not on file documented as of this encounter Visit Diagnoses Not on filedocumented in this encounter Care Teams Informatics Nurse Specialist Relationship Specialty Start Date End Date None, Provider PCP - General 06/18/19 11/25/19 documented as of this encounter
--- OUTSIDE RECORDS SUMMARY | 2024-05-31 07:34 | XMS_ITS | Encounter Summary ---
Author Organization [facility] Address [address] [place] [address] Care Team Providers Care Borematic Operator Name Role Phone None, Provider Primary Care Provider Unavailabl e Reason for Referral * TUBE TEST TECHNICIAN (Routine) - Specialty Report Received Specialty Diagnoses / Procedures Referred By Contac t Referred To Contact Diagnoses of unknown anatomic location Procedures OB FIRST TRIMESTER (LESS THAN 14 WEEKS) TRANSVAGINAL Charu Flynn MD Phone: tel: fax: Referral ID Status Reason Start Date Expiration Date V isits Requested Visits Authorized [id number] Specialty Report Received 09/03/2019 1 1 Reason for Visit * TUBE TEST TECHNICIAN (Routine) - Specialty Report Received Specialty Diagnoses / Procedures Referred By Contac t Referred To Contact Diagnoses of unknown anatomic location Procedures US OB FIRST TRIMESTER (LESS THAN 14 WEEKS) TRANSVAGINAL Charu Flynn MD Phone: tel: fax: Referral ID Status Reason Start Date Expiration Date V isits Requested Visits Authorized [id number] Specialty Report Received 09/03/2019 1 1 Encounter Details Date Type Department Care Team (Latest Contact Info) Description 09/05/2019 10:26 EDT - 09/06/2019 23:59 EDT Hospital Encounter [facility] OBGYN Services - [facility] [place] [address] [place] [address] of unknown anatomic location Discharge Disposition: Home [...] Sufficient. Impression 1st Trimester OB scan ,transvaginal +07800 Single intrauterine gestational sac and yolk sac. [...] Sufficient. Impression 1st Trimester OB scan ,transvaginal +38835 Single intrauterine gestational sac and yolk sac. A pole cannot beclearly identified on today's examination. Follow-up follow up US in 2 weeks. Comment ========= Z34.8 encounter for supervision of other normal . Resultsdiscussed w/patient. DATE OF SERVICE: 09/05/2019 Charu Flynn MD [facility] OB ORDERABLES Fin al Result documented in this encounter Visit Diagnoses Diagnosis of unknown anatomic location state, incidental documented in this encounter Care Teams Borematic Operator Relationship Specialty Start Date End Date None, Provider PCP - General 06/18/19 11/25/19 documented as of this encounter
--- OUTSIDE RECORDS SUMMARY | 2024-05-31 07:34 | XMS_ITS | Encounter Summary ---
Author Organization [facility] Address [address] [place] [address] Care Team Providers Care Surgical Aide Name Role Phone None, Provider Primary Care Provider Unavailabl e Reason for Visit * GEOSCIENCE TECHNICIAN (Routine) - Order Cancelled Specialty Diagnoses / Procedures Referred By Contac t Referred To Contact Diagnoses Less than 8 weeks gestation of Procedures US OB FIRST TRIMESTER (LESS THAN 14 WEEKS) TRANSVAGINAL Jonas Ojeda MD Phone: tel: fax: Referral ID Status Reason Start Date Expiration Date V isits Requested Visits Authorized [id number] Order Cancelled 09/05/2019 1 1 Encounter Details Date Type Department Care Team (Latest Contact Info) Description 09/17/2019 9:09 EDT - 09/18/2019 23:59 EDT Hospital Encounter [facility] OBGYN Services - [address] [address] Less than 8 weeks gestation of Discharge [...] corpus luteum: ??collapsed Impression OB Transvaginal - [address] [place] viable intrauterine with dating to be [...] corpus luteum: ??collapsed Impression OB Transvaginal - 599[address] [place] viable intrauterine with dating to be [...] corpus luteum: collapsed Impression OB Transvaginal - 355[address] [place] viable intrauterine with dating to be based onultrasound, as above for dating. Follow-up Establish OB care. Comment ========= Results discussed with patient. DATE OF SERVICE: 09/17/2019 Jonas Ojeda MD [facility] OB ORDERABLES Edited Result - Final documented in this encounter Visit Diagnoses Diagnosis Less than 8 weeks gestation of state, incidental documented in this encounter Care Teams Surgical Aide Relationship Specialty Start Date End Date None, Provider PCP - General 06/18/19 11/25/19 documented as of this encounter
--- OUTSIDE RECORDS SUMMARY | 2024-05-31 07:34 | XMS_ITS | Encounter Summary ---
Author Organization [facility] Address [address] [place] [address] Care Team Providers Care Magnetic Resonance Technologist Name Role Phone Unavailable Primary Care Provider Unavailabl e Reason for Referral * Radiology Services (Routine) - Closed Specialty Diagnoses / Procedures Referred By Contac t Referred To Contact Radiology Diagnoses Left foot pain Sore on toe ([facility]) Procedures MR FOOT W WO CONTRAST LEFT Tonja Alejandro PA-C Phone: tel: fax: Referral ID Status Reason Start Date Expiration Date Visits Re quested Visits Authorized [id number] Closed 11/28/2019 1 1 Reason for Visit * Reason Comments Foot Pain left Encounter Details Date Type Department Care Team (Late st Contact Info) Description 11/28/2019 14:30 EDT Office Visit [facility] Adult Primary Care - [place] [address] [place] [address] Tonja Alejandro PA-C [address] [place] [address] [place] [phone] Left foot pain (Primary Dx); Type 2 diabetes mellitus with other specified complication, unspecified whether group home insulin use ([facility]); Sore on toe Social History Tobacco Use [...] from the original note were not included. [facility] Primary Care Acute Visit Service [...] she did go to urgent care at [facility] and had x-rays done and was [...] mellitus with other specified complication, unspecified whether group home insulin use ([facility]) Sore on toe/left foot pain This [...] mellitus with other specified complication, unspecified whether hardware sales assistant insulin use ([facility]-CMS) Sore on toe ([facility]-CMS) Left foot pain Pain in limb Sore on toe ([facility]-CMS) documented in this encounter
--- OUTSIDE RECORDS SUMMARY | 2024-05-31 07:34 | XMS_ITS | Encounter Summary ---
Author Organization [facility] Address [address] [place] [address] Care Team Providers Care Sustainment Logistics Analyst Name Role Phone None, Provider Primary Care Provider Unavailabl e Reason for Visit * Reason Comments Social Work Encounter Details Date Type Department Care Team (Late st Contact Info) Description 11/05/2019 Community Health Team [facility] OBGYN Services - [address] [address] Eryn Diaz Social History Tobacco Use Types [...] documented in this encounter Progress Notes * Eyrn Diaz - 11/05/2019 0954 EDT SW providing short-term couns related to pt's recent miscarriage which was her 7th - spoke with pt via zoom - met for the first time. Pt rep her mo, sis, Fermin, and 4 children have cont to be very supportive of her and her grieving process. Pt lives in [place] with Fermin, her 8 yo step francois [...] dragonfly tattoos for birthday - Checked out [facility] thx practice that SW had rec - declines being connected with a thx ATT, but open to it if needed - rep very self-aware and knows resources - Pt participating in a loss support group on [employer] that has been helpful - Pt req short term couns with this SW - planned for an appt before her tubal procedure and 1 after SW mailed pt a gas card and contact info. Next SW appt 11/25 via zoom - emailed pt link. [facility] Total Time: 1.5 hours total 1 hour, 5 min via zoom with pt 5 min via email with pt 20 min charting Referral: [facility] Follow up: Date: Tuesday, November 26, 2019 Time: 10 AM With: Eryn Diaz Data Processing Manager Location: zoom Status: Active documented in this encounter Plan of Treatment Not on file documented as of this encounter Visit Diagnoses Not on filedocumented in this encounter Care Teams Sustainment Logistics Analyst Relationship Specialty Start Date End Date None, Provider PCP - General 06/18/19 11/25/19 documented as of this encounter
--- OUTSIDE RECORDS SUMMARY | 2024-05-31 07:34 | XMS_ITS | Encounter Summary ---
Author Organization [facility] Address [address] [place] [address] Care Team Providers Care Watch Assembler Name Role Phone None, Provider Primary Care Provider Unavailabl e Encounter Details Date Type Department Care Team (Late st Contact Info) Description 11/20/2019 Prep for Procedure [facility] OBGYN [address] [place], [place] [id number] Pamela Sifuentes MD [address] [place] [phone] Social History Tobacco Use Types Packs/Day [...]
--- OUTSIDE RECORDS SUMMARY | 2024-05-31 07:34 | XMS_ITS | Encounter Summary ---
Author Organization [facility] Address [address] [place] [address] Care Team Providers Care Manager Hospitality Name Role Phone None, Provider Primary Care [...] filedocumented in this encounter Care Teams Manager Hospitality Relationship Specialty Start Date End Date None, Provider PCP - General 06/18/19 11/25/19 documented as of this encounter
--- OUTSIDE RECORDS SUMMARY | 2024-05-31 07:34 | XMS_ITS | Encounter Summary ---
Author Organization [facility] Address [address] [place] [address] Care Team Providers Care Exceptional Needs Teacher Name Role Phone Unavailable Primary Care Provider Unavailabl e Reason for Referral * Consult (Routine) - Specialty Report Received Specialty Diagnoses / Procedures Referred By Kit t Referred To Contact Endocrinology Diagnoses Type 2 diabetes mellitus with other specified complication, unspecified whether termination clerk insulin use ([facility]) Teodoro Alejandro PA-C [address] [place] [address] Phone: tel: fax: [facility] Endocrinology - [address] [address] Phone: tel: fax: Referral ID Status Reason Start Date Expiration Date Visits Requested Visits Authorized [id number] Specialty Report Received Specialty Services Required 11/27/2019 [...] Contact Info) Description 11/26/2019 15:30 EDT Telemedicine [facility] Adult Primary Care - [place] [address] [place] [address] Teodroo Alejandro PA-C [address] [place] [address] [place] [phone] Type 2 diabetes mellitus with other specified complication, unspecified whether termination clerk insulin use ([facility]) (Primary Dx); Left foot pain; Anxiety [...] Lantus 25 units in the morning and [id number] mg once a day. Her fasting sugars [...] in October 2019. She follows up with [facility] at the women's center. She is scheduled for a tubal procedure on December 13. 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 She did go to [facility] and had x-rays and was told [...] [facility] ([facility]) Patient has type 2 diabetes [...] whether [facility] insulin use ([facility]) Ordered: 11/27/2019 documented as of this encounter Results * (ABNORMAL) C REACTIVE PROTEIN (11/28/2019 15:56 EDT) C-Reactive Protein 10.6(H) <10.0 mg/L 11/28/2019 17:12 EDT [facility] Blood VENOUS BLOOD / Unknown Venipuncture / Unknown 11/28/2019 15:56 EDT 11/28/2019 15:56 EDT us Teodoro Alejandro PA-C CHEMISTRY & BLOOD GA S ORDERABLES Final Result [facility] [address] [place] [address] * (ABNORMAL) COMPREHENSIVE METABOLIC PANEL (CMP) (11/28/2019 15:56 EDT) Sodium 134(L) 136 - 145 mEq/L 11/28/2019 17:12 EDT [facility] Potassium 4.2 3.5 - 5.0 mEq/L 11/28/2019 17:12 EDT [facility] Chloride 100 96 - 110 mEq/L 11/28/2019 17:12 EDT [facility] CO2 Total 28 22 - 32 mEq/L 11/28/2019 17:12 EDT [facility] Glucose 301(H) 70 - 100 mg/dL 11/28/2019 17:12 EDT [facility] BUN 14 10 - 26 mg/dL 11/28/2019 17:12 [facility] Creatinine 0.57 0.52 - 1.04 mg/dL 11/28/2019 17:12 [facility] eGFR 121 >60 mL/min/1.7 3m2 11/28/2019 17:12 [facility] Comment:eGFR calculated gil curtis CKD-EPI equation for non- Americans. Multiply eGFR by 1.16 for patients. Total Protein 7.0 6.3 - 8.2 g/dL 11/28/2019 17:12 [facility] Albumin 3.9 3.4 - 4.9 g/dL 11/28/2019 17:12 [facility] Alkaline Phosphatase 100 38 - 126 U/L 11/28/2019 17:12 [facility] AST 17 15 - 46 U/L 11/28/2019 17:12 [facility] ALT 14 <35 U/L 11/28/2019 17:12 [facility] Bilirubin, Total <0.5 <1.4 mg/dL 11/28/19 20 17:12 [facility] Calcium 9.8 8.5 - 10.5 mg/dL 11/28/2019 17:12 [facility] Calculated Calcium 9.9 8.5 - 10.5 mg/dL 11/28/2019 17:12 [facility] Blood VENOUS BLOOD / Unknown Venipuncture / Unknown 11/28/2019 15:56 EDT 11/28/2019 15:56 EDT us Teodoro Alejandro PA-C CHEMISTRY & BLOOD GA S ORDERABLES Final Result [facility] [address] [place] [address] * (ABNORMAL) COMPLETE BLOOD COUNT AND DIFFERENTIAL (11/28/2019 15:56 EDT) WBC 14.38(H) 4.00 - 12.40 K/cmm 11/28/2019 17:04 [facility] RBC 4.69 3.86 - 5.04 M/cmm 11/28/2019 17:04 [facility] Hemoglobin 14.3 11.6 - 15.2 gm/dL 11/28/2019 17:04 [facility] HCT 40.8 34.9 - 44.4 % 11/28/2019 17:04 [facility] MCV 87 81 - 98 fl 11/28/2019 17:04 [facility] MCH 30.5 26.7 - 33.3 pg 11/28/2019 17:04 [facility] MCHC 35.0 32.1 - 35.9 gm/dL 11/28/2019 17:04 [facility] RDW-CV 12.0 <14.7 % 11/28/2019 17:04 [facility] RDW-SD 38.4 <50.4 fl 11/28/2019 17:04 [facility] PLT 414(H) 141 - 377 K/cmm 11/28/2019 17:04 [facility] MPV 10.1 9.5 - 12.7 fl 11/28/2019 17:04 [facility] Type of Differential: Manual 11/28/2019 17:04 [facility] Blood VENOUS BLOOD / Unknown Venipuncture / Unknown 11/28/2019 15:56 EDT 11/28/2019 15:56 EDT Teodoro Alejandro PA-C PACKAGES & DNA PROBE ORDERABLES Final Result [facility] [address] [place] [address] * (ABNORMAL) HEMOGLOBIN A1C (11/28/2019 15:56 EDT) Hemoglobin A1c 10.3(H) <5.7 % 11/29/2019 9:15 [facility] Comment: Glycemic Status References: [...] Avg Glucose 249 mg/dL 0 9:15 EDT [facility] Comment: The eAG represents the A1c result expressed as average glucose in mg/dL. Blood VENOUS BLOOD / Unknown Venipuncture / Unknown 11/28/2019 15:56 EDT 11/28/2019 15:56 EDT Teodoro Alejandro PA-C CHEMISTRY & BLOOD GA S ORDERABLES Final Result Performing Organization Address [facility] Co de Phone Number [facility] [address] [place] [address] * THYROID CASCADE (11/28/2019 15:56 EDT) TSH 0.64 0.47 - 4.68 uIU/mL 11/28/2019 17:44 EDT [facility] Blood VENOUS BLOOD / Unknown Venipuncture / Unknown 11/28/2019 15:56 EDT 11/28/2019 15:56 EDT Narrative [facility] - 11/28/2019 17:44 EDT NOTE: TSH Peck is not recommended for patients in which pituitary or hypothalamic disorders are suspected. The results of this assay can be falsely lowered due to the consumption of Biotin. Teodoro Alejandro PA-C CHEMISTRY & BLOOD GA S ORDERABLES Final Result Performing Organization Address [facility] Co de Phone Number [facility] [address] [place] [address] * LIPID PROFILE (INCLUDES CHOLESTEROL, TRIGLYCERIDES, HDL, LDL) (11/28/2019 15:56 EDT) [facility] Signature Cholesterol 179 See Note mg/dL 11/28/2019 17:12 [facility] Comment: Acceptable: ?<200 mg/dL Borderline High: 200-239 mg/dL High: ?> or = 240 mg/dL HDL 38 See Note mg/dL 11/28/2019 17:12 [facility] Comment: Low: ? <40 [...] & BLOOD GA S ORDERABLES Final Result [facility] [address] [place] [address] * (ABNORMAL) ALBUMIN, URINE (11/28/2019 15:56 EDT) Albumin, Urine 11.3 See Note mg/dL 2019 16:47 EDT [facility] Comment: NOTE: Reference range not established Creatinine, Urine 143.1 See Note mg/dL 11/28/2019 16:47 EDT [facility] Comment: NOTE: Reference range not established Lab Urine Albumin to Creatinine Ratio 79(H) <30 ug/mg Creatinine 11/28/2019 16:47 EDT [facility] Comment: Urine Albumin/Creatinine Ratio: Normal: <30 ug/mg Creatinine Moderately increased albuminuria: 30-300 ug/mg Creatinine Severley increased albuminuria: >300 ug/mg Creatinine Urine URINE SPECIMEN OBTAINED BY CLEAN CATCH PROCEDURE / Unknown Urine Collect / Unknown 11/28/2019 15:56 EDT 11/28/2019 15:56 EDT Teodoro Alejandro PA-C CHEMISTRY & BLOOD GA S ORDERABLES Final Result Performing Organization Address [facility] Co de Phone Number [facility] [address] [place] [address] documented in this encounter Visit Diagnoses Diagnosis Type 2 diabetes mellitus with other specified complication, unspecified whether termination clerk insulin use ([facility])- Primary Left foot pain Pain in limb [...]
--- OUTSIDE RECORDS SUMMARY | 2024-05-31 07:35 | XMS_ITS | Encounter Summary ---
Author Organization [facility] Address [address] [place] [address] Care Team Providers Care Drum Puller Name Role Phone Benita Shafer GUSTAVO Primary Care Provider [phone] Encounter Details Date Type Department Care Team (Late st Contact Info) Description 11/10/2018 Phlebotomy Only [address] [address] Executive Director Sheltered Workshop, Outpatient Ectopic without intrauterine , unspecified location [...] Preg 1,117(H) <5 mIU/ml 11/10/2018 9:[address] [facility] Comment: Reference Range: Negative = <5 Indeterminate = 5-25 recommend repeat in 48 hours. Positive = >25 The results of this assay can be falsely lowered due to the consumption of Biotin. Blood specimen (specimen) BLOOD SPECIMEN / Unknown 11/10/2018 8:52 EDT 11/10/2018 9:00 EDT us Charu Flynn MD CHEMISTRY & BLOOD GAS OR DERABLES Final Result [facility] [address] [place] [address] documented in this encounter Visit Diagnoses Diagnosis Ectopic without intrauterine , unspecified location- Primary documented in this encounter Care Teams Drum Puller Relationship Specialty Start Date End Date Benita Shafer NP PCP - General 08/22/18 06/17/19 documented as of this encounter
--- OUTSIDE RECORDS SUMMARY | 2024-05-31 07:35 | XMS_ITS | Encounter Summary ---
Author Organization [facility] Address [address] [place] [address] Care Team Providers Care Vacuum Worker Name Role Phone Benita Shafer NP Primary Care Provider [phone] Reason for Visit * Reason Comments Diabetes * Consult (3 - 10 Business Days) - Specialty Report Received Specialty Diagnoses / Procedures Referred By Kit goode Referred To Contact Endocrinology Diagnoses Poorly controlled type 2 diabetes mellitus ([facility]) Recurrent loss Jonas Ojeda MD Phone: tel: fax: [facility] Endocrinology - [address] [address] Phone: tel: fax: Referral ID Status Reason Start Date Expiration Date Visits Requested Visits Authorized [id number] Specialty Report Received Specialty Services Required 11/03/2018 1 1 Encounter Details Date Type Department Care Team (Latest Contact Info) Description 11/10/2018 9:20 EDT Office Visit [facility] Endocrinology - [facility] [address] [place] [address] Sara Zafar NP [address] [place] [address] [address] [place] [address] Type 2 diabetes mellitus with hyperglycemia, with long-term current use of insulin ([facility]) (Primary Dx) Social History Tobacco Use [...] calL with med adjustments RD referral in [place] Take food records BS pre meal 80-120 and 2 hr post <160 non 60-90 pre meal and under 120 Increase your Lantus to 15 units and Novolog 6-10 Units with meals F/U in 10 weeks documented in this encounter Progress Notes * Sara Zafar Np - 11/10/2018 9342 EDT Subjective: Patient ID: Cristy Luo is [...] trimester miscarriages, most recently terminated a at [facility] 11/01/2018. Recurrent loss attributed to to poorly controlled type 2 diabetes in conjunction with tobacco dependence. She saw WELDING PANTOGRAPH OPERATOR on 11/03/2018, and was advised to [...] her PCPs office (Benita Shafer NP - [place]) approximately 1 to 2 months ago . [...] 4 siblings, knows about 2, noDM. 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 Very [...] not cover this medication. There is an mdxr-wis-pceorul cream or an oxmx-ile-tphikpi patch with a lower concentration that is [...] to work closely with anRD either at [facility] or here to learn CHO ect, [...] obtain Plan: Look up DEXCOM and Freestyle Vingesh sensor. Call Medicaid to see about coverage and requirements I will calL with med [facility] RD referral in [place] Take food records BS pre meal 80-120 [...] current use of insulin ([facility])- Primary documented in this encounter Care Teams Vacuum Worker Relationship Specialty Start Date End Date Benita Shafer NP PCP - General 08/22/18 06/17/19 documented as of this encounter
--- OUTSIDE RECORDS SUMMARY | 2024-05-31 07:35 | XMS_ITS | Encounter Summary ---
Author Organization [facility] Address [address] [place] [address] Care Team Providers Care Price Analyst Name Role Phone DilanBenita tanner GUSTAVO Primary Care Provider [phone] Reason for Referral * Consult (3 - 10 Business Days) - Closed Specialty Diagnoses / Procedures Referred By [facility] t Referred To Contact [facility] Team / Obstetrics & Gynecology Diagnoses Ectopic , unspecified location, unspecified whether intrauterine present History of recurrent miscarriages Charu Flynn MD Phone: tel: fax: [facility] OBGYN Services - [address] [address] Phone: tel: fax: Referral ID Status Reason Start Date Expiration Date V isits Requested Visits Authorized [id number] Closed Specialty Services Required 11/10/2018 1 1 Question Answer What areas would you like the CHT to focus on? Women's Health Initiative Comments As we discussed in your visit today, someone will be contacting you from the [facility] Health Team to schedule an appointment with you. If you do not hear from the CHT within a week please call the [facility] Health Team at [phone]. Reason for Visit * Reason Onset Date Comments Labs Only 11/10/2018 Encounter Details Date Type Department Care Team (Late st Contact Info) Description 11/10/2018 Telephone [facility] OBGYN Services - [address] [address] Susana Busby, RN Labs Only Social History [...] 0850: Spoke with Cristy, she went to [facility] lab last night but it was too late to get blood drawn, currently at [facility] lab. When asked how she [...] are available. She prefers to go to [facility] for blood work, but may go to [facility] as is closer. I told her if [facility] registration says they do not have an order tell them to call the lab, as they can see [facility] Prism order. When asked if [...] miscarriages documented in this encounter Care Teams Price Analyst Relationship Specialty Start Date End Date Benita Shafer NP PCP - General 08/22/18 06/17/19 documented as of this encounter
--- OUTSIDE RECORDS SUMMARY | 2024-05-31 07:35 | XMS_ITS | Encounter Summary ---
Author Organization [facility] Address [address] [place] [address] Care Team Providers Care Recreation Instructor Name Role Phone Benita Shafer DEVOPS Primary Care Provider [phone] Reason for Visit * Reason Onset Date Comments Labs Only 12/20/2018 Encounter Details Date Type Department Care Team (Late st Contact Info) Description 12/20/2018 Telephone [facility] OBGYN Services - [address] [address] Susana Tomlinson, RN Labs Only Social History [...] VM, left general message: nurse calling from [facility] Women???s clinic, re: bloodwork that was due Wednesday 12/20, spoke with lab last bloodwork was done 12/13, very important to get the blood work done, can change day of blood draw if would be better to get this done on . Please call the PAPER REEL OPERATOR nurses at [phone]. This is the 3rd call to her. * Telephone Encounter - Michelle Sanchez RN - 12/21/2018 0904 EDT LM asking pt to call PAPER REEL OPERATOR triage to f/u. If calls back, will discuss moving blood draw for HCG to Tuesday, as pt is off work on that day. TC to [facility]; confirmed that pt has not come to [...] 12/20/2018 1326 EDT Spoke with lab @ [facility]: Cristy has not yet come in today for BHCG lab draw. documented in this encounter Plan of Treatment Not on file documented as of this encounter Visit Diagnoses Not on filedocumented in this encounter Care Teams Recreation Instructor Relationship Specialty Start Date End Date Benita Shafer NP PCP - General 08/22/18 06/17/19 documented as of this encounter
--- OUTSIDE RECORDS SUMMARY | 2024-05-31 07:35 | XMS_ITS | Encounter Summary ---
Author Organization Health system Address [address] [place] [address] Care Team Providers Care Automotive Salesperson Name Role Phone None, Provider Primary Care Provider Unavailabl e Reason for Visit * Reason Onset Date Comments Results 08/31/2019 Encounter Details Date Type Department Care Team (Late st Contact Info) Description 08/31/2019 Telephone [facility] OBGYN Services - [facility] [address] [place] [address] Susana Tomlinson, RN Results Social History Tobacco [...] call us with any concerns or questions. FOREIGN STUDENT ADVISER TEACHER nurse line [phone], or after hours MD line [phone]. documented in this encounter Plan of Treatment Not on file documented as of this encounter Visit Diagnoses Not on filedocumented in this encounter Care Teams Automotive Salesperson Relationship Specialty Start Date End Date None, Provider PCP - General 06/18/19 11/25/19 documented as of this encounter
--- OUTSIDE RECORDS SUMMARY | 2024-05-31 07:35 | XMS_ITS | Encounter Summary ---
Author Organization [facility] Address [address] [place] [address] Care Team Providers Care Binder Cutter Name Role Phone Benita Shafer APPLICATIONS SYSTEM ANALYST Primary Care Provider [phone] Reason for Visit * Reason Onset Date Comments Results 12/13/2018 Encounter Details Date Type Department Care Team (Late st Contact Info) Description 12/13/2018 Telephone [facility] OBGYN Services - [address] [address] Susana Tomlinson, MARCELO Results Social History Tobacco [...] - 12/13/2018 1013 EDT Spoke with [facility] lab: Cristy got her blood drawn thsi am, however the machine that is used to process BHCG is not working, they anticipate that it will be fixed tomorrow. documented in this encounter Plan of Treatment Not on file documented as of this encounter Visit Diagnoses Not on filedocumented in this encounter Care Teams Binder Cutter Relationship Specialty Start Date End Date Benita Shafer NP PCP - General 08/22/18 06/17/19 documented as of this encounter
--- OUTSIDE RECORDS SUMMARY | 2024-05-31 07:35 | XMS_ITS | Encounter Summary ---
Author Organization [facility] Address [address] [place] [address] Care Team Providers Care Day Care Aide Name Role Phone None, Provider Primary Care Provider Unavailabl e Reason for Visit * Reason Onset Date Comments 08/30/2019 Encounter Details Date Type Department Care Team (Late st Contact Info) Description 08/30/2019 Telephone [facility] OBGYN Services - [facility] [address] [place] [address] Nilda Parisi RN Social History Tobacco Use [...] in this encounter Care Teams Day Care Aide Relationship Specialty Start Date End Date None, Provider PCP - General 06/18/19 11/25/19 documented as of this encounter
--- OUTSIDE RECORDS SUMMARY | 2024-05-31 07:35 | XMS_ITS | Encounter Summary ---
Author Organization [facility] Address [address] [place] [address] Care Team Providers Care Principal Java Developer Name Role Phone Benita Shafer COOK SHIP Primary Care Provider [phone] Reason for Visit * Reason Comments Arm Pain pt to ed c/o right s houlder pain that radiates down to right hand. pt states pain started last while walking. distal CSMT intact. denies trauma. Encounter Details Date Type Department Care Team (Late st Contact Info) Description 11/01/2018 17:45 EDT - 11/01/2018 21:27 EDT Emergency [facility] Emergency Department - [place] [address] [place] [address] Kevan Gr MD [address] [place] [address] Emergency, MD Ekaterina Arm pain, diffuse, right [...] pain-R07.89[ICD-10-CM] F17.210 Nicotine dependence, cigarettes, uncomplicated-F17.210[ICD-10-CM] Z79.84 [facility] (current) use of oral hypoglycemic drugs-Z79.84[ICD-10-CM] Z79.4 [facility] (current) use of insulin-Z79.4[ICD-10-CM] Z88.6 Allergy status [...] not cover this medication. There is an wmug-cvi-eecinjv cream or an bvph-esd-hlkkkkm patch with a lower concentration that is [...] not cover this medication. There is an xwwv-kir-onjlguk cream or an xwmr-zyv-bqcwtmr patch with a lower concentration that is [...] medical conditions at the [facility] on 11/01/2018 Scribe attestation: This documentation [...] to verify the correct patient, procedure, equipment, ict support and test engineers and site/side marked as required. Indications: pain [...] 17.33(H) 4.0 - 12.4 K/cmm 11/01/2018 20:22 [facility] RBC 4.63 3.86 - 5.04 M/cmm 11/01/2018 20:22 [facility] Hemoglobin 14.2 11.6 - 15.2 gm/dl 11/01/2018 20:22 [facility] HCT 41.0 34.9 - 44.4 % 11/01/2018 20:22 [facility] MCV 89 81 - 98 fl 11/01/2018 20:22 [facility] MCH 30.7 26.7 - 33.3 pg 11/01/2018 20:22 [facility] MCHC 34.6 32.1 - 35.9 gm/dl 11/01/2018 20:22 [facility] RDW-CV 12.1 <14.7 % 11/01/2018 20:22 [facility] RDW-SD 38.3 <50.4 fl 11/01/2018 20:22 [facility] PLT 351 141 - 377 K/cmm 11/01/2018 20:22 [facility] MPV 9.8 9.5 - 12.7 fl 11/01/2018 20:22 [facility] Neutrophils 59.3 % 11/01/2018 20:49 [facility] Lymphocytes 32.7 % 11/01/2018 20:49 [facility] Monocytes 4.4 % 11/01/2018 20:49 [facility] Eosinophils 2.7 % 11/01/2018 20:49 [facility] % Atyp Lymphs 0.9 % 11/01/2018 20:49 [facility] ABS Neutrophils 10.28(H) 2.20 - 8.85 K/cmm 11/01/2018 20:49 [facility] ABS Lymphs 5.67(H) 1.09 - 3.30 K/[facility] 11/01/2018 20:49 [facility] ABS Monocytes 0.76 0.1 - 0.8 K/[facility] 11/01/2018 20:49 [facility] ABS Eosinophils 0.47 0.03 - 0.61 K/[facility] 11/01/2018 20:49 [facility] ABS Atyp Lymphs 0.16 K/[facility] 9 20:49 [facility] Type of Diff: Manual 11/01/2018 20:49 [facility] Blood specimen (specimen) BLOOD SPECIMEN / Unknown 11/01/2018 19:38 EDT 11/01/2018 19:55 EDT Kevan Gr MD PACKAGES & DNA PROBE ORDERABLES Final Result [facility] [address] [place] [address] * (ABNORMAL) BASIC METABOLIC PANEL (BMP) (11/01/2018 19:38 EDT) Sodium 136 136 - 145 mEq/L 11/01/2018 20:16 [facility] Potassium 4.1 3.5 - 5.0 mEq/L 11/01/2018 20:16 [facility] Chloride 99 96 - 110 mEq/L 11/01/2018 20:16 [facility] CO2 27 22 - 32 mEq/L 11/01/2018 20:16 [facility] BUN 10 10 - 26 mg/dl 11/01/2018 20:16 [facility] Creatinine 0.39(L) 0.52 - 1.04 mg/dl 11/01/2018 20:16 [facility] GFR, Calculated 138 >60 ml/min/1.7 3m2 11/01/2018 20:16 [facility] Comment: eGFR calculated using CKD-EPI equation for non Americans. Multiply eGFR by 1.16 for Americans. Calcium 10.2 8.5 - 10.5 mg/dl 11/01/2018 20:16 EDT [facility] Calculated Calcium 10.2 8.5 - 10.5 mg/dl 11/01/2018 20:16 EDT [facility] Glucose, Serum 225(H) 70 - 100 mg/dl 11/01/2018 20:16 EDT [facility] Fasting? Unknown 11/01/2018 19:56 EDT [facility] Blood specimen (specimen) BLOOD SPECIMEN / Unknown 11/01/2018 19:38 EDT 11/01/2018 19:55 EDT Kevan Gr MD CHEMISTRY & BLOOD GAS ORDERABLES Final Result Performing Organization Address City/[facility]/ZIP Co de Phone Number [facility] [address] [place] [address] * CK (11/01/2018 19:38 EDT) CK 42 30 - 135 U/L 11/01/2018 20:16 EDT [facility] Blood specimen (specimen) BLOOD SPECIMEN / Unknown 11/01/2018 19:38 EDT 11/01/2018 19:55 EDT Kevan Gr MD CHEMISTRY & BLOOD GAS ORDERABLES Final Result Performing Organization Address City/[facility] Co de Phone Number [facility] [address] [place] [address] * Nerve Block (11/01/2018 19:09 EDT) Narrative [facility] E[facility] - 11/01/2018 19:09 EDT [...] to verify the correct patient, procedure, equipment, ict support and test engineers and site/side marked as required. Indications: pain [...] MD PROCEDURE/MINOR SURGICAL ORDERAB LES Final Result [facility] E[facility] documented in this encounter [...] RN) documented in this encounter Care Teams Principal Java Developer Relationship Specialty Start Date End Date Benita Shafer NP PCP - General 08/22/18 06/17/19 documented as of this encounter
--- OUTSIDE RECORDS SUMMARY | 2024-05-31 07:35 | XMS_ITS | Encounter Summary ---
Author Organization [facility] Address [address] [place] [address] Care Team Providers Care Medical Imaging Director Name Role Phone Benita Shafer BASEBALL GLOVE STUFFER Primary Care Provider [phone] Reason for Visit * Reason Onset Date Comments Labs Only 11/07/2018 Encounter Details Date Type Department Care Team (Late st Contact Info) Description 11/07/2018 Telephone [facility] OBGYN Services - [address] [address] Michelle Sanchez, MARCELO Labs Only Social History [...] in tomorrow. Patient given lab hours at [facility]. Lab opens up at 6. Patient [...] Wolfe RN - 11/08/2018 1901 EDT Call [facility] lab. Patient had not gone into the lab as of now which is 1900. * Telephone Encounter - Michelle Sanchez RN - 11/07/2018 0945 EDT TC to Cristy to remind to go to lab for HCG tomorrow (11/08). Pt states she will go to [facility] lab in evening; advised we will [...] following MTX administration. Reiterated bleeding precautions and INSTRUCTIONAL SERVICES SPECIALIST triage number if pt has questions/concerns. documented [...] & BLOOD GAS OR DERABLES Final Result [facility] [address] [place] [address] documented in this encounter Visit Diagnoses Diagnosis Ectopic without intrauterine , unspecified location- Primary documented in this encounter Care Teams Medical Imaging Director Relationship Specialty Start Date End Date Benita Shafer NP PCP - General 08/22/18 06/17/19 documented as of this encounter
--- OUTSIDE RECORDS SUMMARY | 2024-05-31 07:35 | XMS_ITS | Encounter Summary ---
Author Organization [facility] Address [address] [place] [address] Care Team Providers Care In Store Marketer Name Role Phone Benita Shafer GUSTAVO Primary Care Provider [phone] Encounter Details Date Type Department Care Team (Latest Contact Info) Description 11/03/2018 10:39 EDT - 11/03/2018 23:59 EDT Hospital Encounter [facility] [address] [place] [address] Jonas Ojeda MD [address] [place] [address] [address] Discharge Disposition: Auto Discharge Social [...] not cover this medication. There is an lbab-fyz-gesfode cream or an fvap-cmn-qiychtd patch with a lower concentration that is [...] 169 ng/dl 11/03/2018 14:[address] [facility] BLOOD SPECIMEN / Unknown 11/03/2018 10:47 EDT 11/03/2018 11:17 EDT us Jonas Ojeda MD CHEMISTRY & BLOOD GAS ORDERA BLES Final Result Performing Organization Address [facility] [[email or web address]] Co de Phone Number [facility] [address] [place] [address] * T4, FREE REFLEX (11/03/2018 10:47 EDT) T4, Free Reflex 1.2 0.8 - 2.2 ng/dl 11/03/2018 13:[address] [facility] BLOOD SPECIMEN / Unknown 11/03/2018 10:47 EDT 11/03/2018 11:17 EDT us Jonas Ojeda MD CHEMISTRY & BLOOD GAS ORDERA BLES Final Result Performing Organization Address [facility] de Phone Number [facility] [address] [place] [phone] documented in this encounter Visit Diagnoses Not on filedocumented in this encounter Care Teams In Store Marketer Relationship Specialty Start Date End Date Benita Shafer NP PCP - General 08/22/18 06/17/19 documented as of this encounter
--- OUTSIDE RECORDS SUMMARY | 2024-05-31 07:35 | XMS_ITS | Encounter Summary ---
Author Organization [facility] Address [address] [place] [address] Care Team Providers Care Explosive Operator Name Role Phone None, Provider Primary [...] on filedocumented in this encounter Care Teams Explosive Operator Relationship Specialty Start Date End Date None, Provider PCP - General 06/18/19 11/25/19 documented as of this encounter
--- OUTSIDE RECORDS SUMMARY | 2024-05-31 07:35 | XMS_ITS | Encounter Summary ---
Author Organization [facility] Address [address] [place] [address] Care Team Providers Care Film Rental Clerk Name Role Phone Benita Shafer SERVER PROGRAMMER Primary Care Provider [phone] Reason for Visit * Reason Onset Date Comments Labs Only 11/09/2018 Encounter Details Date Type Department Care Team (Late st Contact Info) Description 11/09/2018 Telephone [facility] OBGYN Services - [address] [address] Susana Tomlinson, RN Labs Only Social History [...] VM, left general message: Nurse calling from [facility], calling to check in & [...] filedocumented in this encounter Care Teams Film Rental Clerk Relationship Specialty Start Date End Date Benita Shafer NP PCP - General 08/22/18 06/17/19 documented as of this encounter
--- OUTSIDE RECORDS SUMMARY | 2024-05-31 07:35 | XMS_ITS | Encounter Summary ---
Author Organization [facility] Address [address] [place] [address] Care Team Providers Care Chip Separator Name Role Phone Benita Shafer GUSTAVO Primary Care Provider [phone] Encounter Details Date Type Department Care Team (Late st Contact Info) Description 11/03/2018 Phlebotomy Only [address] [address] Editorial Cartoonist, Outpatient Recurrent loss; 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 [...] * HEMOGLOBIN A1C (11/03/2018 10:47 EDT) Pathologist [facility] Hemoglobin A1C 10.9 % 11/03/2018 15:29 EDT [facility] Comment: Reference Range: [...] 266 mg/dl 9 15:29 EDT [facility] Comment: eAG represents the A1c result expressed as average glucose in mg/dl. Blood specimen (specimen) BLOOD SPECIMEN / Unknown 11/03/2018 10:47 EDT 11/03/2018 11:17 EDT us Jonas Ojeda MD CHEMISTRY & BLOOD GAS ORDERA BLES Final Result Performing Organization Address City/[facility]/ZIP Co de Phone Number [facility] [address] [place] [address] * PROLACTIN (11/03/2018 10:47 EDT) Pathologist [facility] Prolactin 5.4 ng/ml 11/03/2018 13:09 EDT [facility] Comment: Non-: 2.8-29.2 : 9.7-208.5 Post Menopausal: 1.8-20.3 Blood specimen (specimen) BLOOD SPECIMEN / Unknown 11/03/2018 10:47 EDT 11/03/2018 11:17 EDT us Jonas Ojeda MD CHEMISTRY & BLOOD GAS ORDERA BLES Final Result [facility] [address] [place] [address] * (ABNORMAL) THYROID CASCADE (11/03/2018 10:47 EDT) [facility] TSH 0.40(L) 0.47 - 4.68 uIU/ml 11/03/2018 12:19 EDT [facility] Comment: TSH cascade is not recommended for patients in which pituitary or hypothalamic disorders are suspected. The results of this assay can be falsely lowered due to the consumption of Biotin. Blood specimen (specimen) BLOOD SPECIMEN / Unknown 11/03/2018 10:47 EDT 11/03/2018 11:17 EDT us Jonas Ojeda MD CHEMISTRY & BLOOD GAS ORDERA BLES Final Result [facility] [address] [place] [address] documented in this encounter Visit Diagnoses Diagnosis Recurrent loss 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 documented in this encounter Care Teams Chip Separator Relationship Specialty Start Date End Date Benita Shafer NP PCP - General 08/22/18 06/17/19 documented as of this encounter
--- OUTSIDE RECORDS SUMMARY | 2024-05-31 07:35 | XMS_ITS | Encounter Summary ---
Author Organization [facility] Address [address] [place] [address] Care Team Providers Care Hand Former Name Role Phone Benita Shafer INTERNATIONAL RECRUITER Primary Care Provider [phone] Reason for Visit * Reason Onset Date Comments Results 12/04/2018 Encounter Details Date Type Department Care Team (Late st Contact Info) Description 12/04/2018 Telephone [facility] OBGYN Services - [address] [address] Lisseth Valdez, MARCELO Results Social History Tobacco [...] w/ dr beckwith. Please call us at [phone]. LVM for Cristy stating this is the nurse again, I forgot to tell you that based on your new result we would like for you to repeat your blood work on 12/10. documented in this encounter Plan of Treatment Not on file documented as of this encounter Visit Diagnoses Not on filedocumented in this encounter Care Teams Hand Former Relationship Specialty Start Date End Date Benita Shafer NP PCP - General 08/22/18 06/17/19 documented as of this encounter
--- OUTSIDE RECORDS SUMMARY | 2024-05-31 07:35 | XMS_ITS | Encounter Summary ---
Author Organization [facility] Address [address] [place] [address] Care Team Providers Care Hospital Aide Name Role Phone Benita Shafer TERRAZZO MECHANIC HELPER Primary Care Provider [phone] Reason for Visit * Reason Onset Date Comments Labs Only 12/12/2018 Encounter Details Date Type Department Care Team (Late st Contact Info) Description 12/12/2018 Telephone [facility] OBGYN Services - [address] [address] Susana Tomlinson, MARCELO Labs Only Social History [...] RN - 12/12/2018 1002 EDT Spoke with [facility] lab: last HCG blood draw [...] on filedocumented in this encounter Care Teams Hospital Aide Relationship Specialty Start Date End Date Benita Shafer NP PCP - General 08/22/18 06/17/19 documented as of this encounter
--- OUTSIDE RECORDS SUMMARY | 2024-05-31 07:35 | XMS_ITS | Encounter Summary ---
Author Organization [facility] Address [address] [place] [address] Care Team Providers Care Crime Prevention Police Officer Name Role Phone Benita Shafer EMPLOYMENT ADJUDICATOR Primary Care Provider [phone] Reason for Visit * Reason Comments Social Work Encounter Details Date Type Department Care Team (Late st Contact Info) Description 12/15/2018 Community Health Team [facility] OBGYN Services - [place] [address] [place] [address] Kylah Bose Social History Tobacco Use Types [...] - 12/15/2018 0937 EDT Patient referred to [facility] by Dr. Ojeda. Patient did not respond to Admins attempts to schedule initial visit. SW called patient with the goal of scheduling a phone consult. Patient was at work and couldn't talk. SW attempted to text patient with SW contact info and text repeatedly came back as unde liverable. DOTTIE Diaz will check in with patient during her next Supervisor [employer] appointment with Dr. Ojeda on 01/03. [facility] Total Time: 5 minutes phone, 5 minutes charting Referral: n/a Follow up: n/a Status: pending documented in this encounter Plan of Treatment Not on file documented as of this encounter Visit Diagnoses Not on filedocumented in this encounter Care Teams Crime Prevention Police Officer Relationship Specialty Start Date End Date Benita Shafer NP PCP - General 08/22/18 06/17/19 documented as of this encounter
--- OUTSIDE RECORDS SUMMARY | 2024-05-31 07:35 | XMS_ITS | Encounter Summary ---
Author Organization [facility] Address [address] [place] [address] Care Team Providers Care Telephone Sales Representative Name Role Phone Benita Shafer AEROSOL SUPERVISOR Primary Care Provider [phone] Encounter Details Date Type Department Care Team (Late st Contact Info) Description 11/01/2018 Orders Only [facility] OBGYN Services - [facility] [address] [place] [address] Lara Serrano RN [address] [place] [address] Right tubal without intrauterine (Primary Dx) Social [...] Primary documented in this encounter Care Teams Telephone Sales Representative Relationship Specialty Start Date End Date Benita Shafer NP PCP - General 08/22/18 06/17/19 documented as of this encounter
--- OUTSIDE RECORDS SUMMARY | 2024-05-31 07:35 | XMS_ITS | Encounter Summary ---
Author Organization [facility] Address [address] [place] [address] Care Team Providers Care Hostess Host Name Role Phone Benita Shafer DIRECTOR OF REVENUE CYCLE MANAGEMENT Primary Care Provider [phone] Reason for Visit * Reason Onset Date Comments Labs Only 11/17/2018 Encounter Details Date Type Department Care Team (Late st Contact Info) Description 11/17/2018 Telephone [facility] OBGYN Services - [address] [address] Jordyn Wolfe, RN Labs Only Social History [...] 18. Patient has not gone to either [facility] lab or [facility] [...] PM. Patient plans to go to the [facility] lab tomorrow morning around 9 AM. She [...] on filedocumented in this encounter Care Teams Hostess Host Relationship Specialty Start Date End Date Benita Shafer NP PCP - General 08/22/18 06/17/19 documented as of this encounter
--- OUTSIDE RECORDS SUMMARY | 2024-05-31 07:35 | XMS_ITS | Encounter Summary ---
Author Organization [facility] Address [address] [place] [address] Care Team Providers Care Tobacco Stemmer Name Role Phone Benita Shafer DENTAL MECHANIC Primary Care Provider [phone] Reason for Visit * Reason Onset Date Comments Other 11/21/2018 Encounter Details Date Type Department Care Team (Late st Contact Info) Description 11/21/2018 Telephone [facility] OBGYN Services - [address] [address] Jordyn Wolfe, MARCELO Other Social History Tobacco [...] to have her beta-hCG checked today at [facility]. I will ensure that the order is in place. documented in this encounter Plan of Treatment Not on file documented as of this encounter Visit Diagnoses Not on filedocumented in this encounter Care Teams Tobacco Stemmer Relationship Specialty Start Date End Date Benita Shafer NP PCP - General 08/22/18 06/17/19 documented as of this encounter
--- OUTSIDE RECORDS SUMMARY | 2024-05-31 07:35 | XMS_ITS | Encounter Summary ---
Author Organization [facility] Address [address] [place] [address] Care Team Providers Care Inspector Integrated Circuits Name Role Phone Benita Shafer GUSTAVO Primary Care Provider [phone] Reason for Visit * Reason Onset Date Comments Appointment Related 03/02/2019 Encounter Details Date Type Department Care Team (Late st Contact Info) Description 03/02/2019 Telephone [facility] Obstetrics & Midwifery - [facility] [address] [place], [place] [address] Deborah Prakash MD [address] [facility], [address] [place] [address] Appointment Related Social History Tobacco [...] filedocumented in this encounter Care Teams Inspector Integrated Circuits Relationship Specialty Start Date End Date Benita Shafer NP PCP - General 08/22/18 06/17/19 documented as of this encounter
--- OUTSIDE RECORDS SUMMARY | 2024-05-31 07:35 | XMS_ITS | Encounter Summary ---
Author Organization [facility] Address [address] [place] [address] Care Team Providers Care Resource Conservation Manager Name Role Phone Benita Shafer GUSTAVO Primary Care Provider [phone] Reason for Referral * Consult (Routine) - Closed Specialty Diagnoses / Procedures Referred By Kit goode Referred To Contact Obstetrics Diagnoses Poorly controlled type 2 diabetes mellitus ([facility]) Tobacco dependence Class II obesity Jonas Ojeda MD Phone: tel: fax: [facility] Obstetrics & Midwifery - [address] [address] Phone: tel: fax: Referral ID Status Reason Start Date Expiration Date V isits Requested Visits Authorized [id number] Closed Specialty Services Required 11/03/2018 1 1 [...] controlled type 2 diabetes mellitus ([facility]) Recurrent loss Jonas Ojeda MD Phone: tel: fax: [facility] Endocrinology - [address] [address] Phone: tel: fax: Referral ID Status Reason Start Date Expiration Date Visits Requested Visits Authorized [id number] Specialty Report Received Specialty Services Required 11/03/2018 [...] ectopic without intrauterine Charu Flynn MD Phone: tel:[phone] fax:[phone] [facility] Reproductive Medicine & Infertility [address] [address] Phone: tel: fax: Referral ID Status Reason Start Date Expiration Date Visits Requested Visits Authorized [id number] Specialty Report Received Specialty Services Required 10/26/2018 1 1 Encounter Details Date Type Department Care Team (Latest Contact Info) Description 11/03/2018 9:00 EDT Office Visit [facility] Reproductive Medicine & Infertility [address] [address] Jonas Ojeda MD [address] [place] [address] [address] Poorly controlled type 2 diabetes [...] from the patient and cross reviewing her [facility] records for accuracy. Of note, [...] her PCPs office (Benita Shafer, GUSTAVO - [place]) approximately 1 to 2 months ago. Patient reports feeling frustrated with her sugar control and would like a more aggressive management plan. She has never seen an charter representative nor has been on an insulin pump, but she isvery interested in pursuing this. Other notable history includes tobacco dependence smoking approximately half a pack to a full pack per day for the last 4 years. She also smokes marijuana 1-2 times daily. Full review of her medical, surgical, medication, allergies, and social history obtained and is accurate and up-to-date in [facility]. OB History Para Term AB Living 7 0 0 0 7 0 SAB TAB Ectopic Multiple Live Births 6 0 1 0 0 # Outcome Date GA Lbr Partha/2nd Weight Sex Delivery Anes PTL Lv 7 Ectopic 10/2018 10w4d ECTOPIC Comments: interstitial diagnosed at [facility]; given MTX 10/26/18 6 SAB 01/2018 6w0d SAB Comments: D&C at [facility] after nonviable on US; had to have repeat D&Bhavna November for retained POCs 5 SAB 06/2017 6w0d SAB Comments: D&C at [facility]; nonviable seen on US; fourth with current 4 SAB 02/2017 6w0d SAB Comments: D&C at [facility]; third with current 3 SAB 08/2015 10w0d SAB Comments: D&C at [facility]; 2nd with current 2 SAB 01/2015 9w0d SAB Comments: D&C at [facility]; first current 1 SAB 2005 6w0d SAB Comments: first ; ex ; twin confirmed by US at [facility]; no medical or surgical tx [...] not cover this medication. There is an vbdv-sfe-tucoquy cream or an syvc-doo-nduxfmo patch with a lower concentration that is [...] Hives Communicable Disease: None Review of Systems PROFESSIONAL MODEL ROS: negative Benchroom Shop Optician Review of Systems Objective: BP 118/72 Physical Exam Assessment: 33 y.o. female with recurrent loss most certainly secondary to poorly controlled type 2 diabetes in conjunction with tobacco dependence who presents for consultation. Plan: Cristy was seen today for recurrent miscarriage. Diagnoses and all orders for this visit: Poorly controlled type 2 diabetes mellitus ([facility]) - AMB CONS/FOLLOW UP ENDOCRINOLOGY - [...] MD, PGY5 Fellow Reproductive Endocrinology & Infertility [facility] 11/03/2018 / 9:54 EDIS Attending [...] 4.68 uIU/ml 11/03/2018 12:19 EDT [facility] Comment: TSH cascade is not recommended for patients in which pituitary or hypothalamic disorders are suspected. The results of this assay can be falsely lowered due to the consumption of Biotin. Blood specimen (specimen) BLOOD SPECIMEN / Unknown 11/03/2018 10:47 EDT 11/03/2018 11:17 EDT Jonas Ojeda MD CHEMISTRY & BLOOD GAS ORDERA BLES Final Result Performing Organization Address [facility] [[email or web address]] Co de Phone Number [facility] [address] [place] [address] * PROLACTIN (11/03/2018 10:47 EDT) Prolactin 5.4 ng/ml 11/03/2018 13:09 EDT [facility] Comment: Non-: 2.8-29.2 : 9.7-208.5 Post Menopausal: 1.8-20.3 Blood specimen (specimen) BLOOD SPECIMEN / Unknown 11/03/2018 10:47 EDT 11/03/2018 11:17 EDT Jonas Ojeda MD CHEMISTRY & BLOOD GAS ORDERA BLES Final Result Performing Organization Address [facility] de Phone Number [facility] [address] [place] [address] * HEMOGLOBIN A1C (11/03/2018 10:47 EDT) Hemoglobin A1C 10.9 % 11/03/2018 15:29 EDT [facility] Comment: Reference Range: <5.7% Normal 5.7-6.4% Prediabetes =>6.5% Diagnostic for diabetes (if confirmed) Goals for glycemic control in diabetes ADA 2017 For non adults with diabetes: ?? Target <7.0% For children and adolescents with type 1 diabetes: ?? Target <7.5% More or less stringent targets may be appropriate for individual patients. Est Avg Glucose 266 mg/dl 9 15:29 EDT [facility] Comment: eAG represents the A1c result expressed as average glucose in mg/dl. Blood specimen (specimen) BLOOD SPECIMEN / Unknown 11/03/2018 10:47 EDT 11/03/2018 11:17 EDT us Jonas Ojeda MD CHEMISTRY & BLOOD GAS ORDERA BLES Final Result [facility] [address] [place] [address] documented in this encounter Visit Diagnoses Diagnosis Poorly controlled type 2 diabetes mellitus ([facility] Primary Type II or unspecified type diabetes mellitus without mention of complication, not stated as uncontrolled Recurrent loss Tobacco dependence Tobacco use disorder Class II obesity documented in this encounter Care Teams Resource Conservation Manager Relationship Specialty Start Date End Date Benita Shafer NP PCP - General 08/22/18 06/17/19 documented as of this encounter
--- OUTSIDE RECORDS SUMMARY | 2024-05-31 07:35 | XMS_ITS | Encounter Summary ---
Author Organization [facility] Address [address] [place] [address] Care Team Providers Care Corporate Quality Manager Name Role Phone Benita Shafer GUSTAVO Primary Care Provider [phone] Encounter Details Date Type Department Care Team (Late st Contact Info) Description 12/11/2018 Orders Only [facility] OBGYN Services - [facility] [address] [place], [place] [id number] Charu Flynn MD [address] [facility], [address] [place] [address] Social History Tobacco Use Types [...] on filedocumented in this encounter Care Teams Corporate Quality Manager Relationship Specialty Start Date End Date Benita Shafer NP PCP - General 08/22/18 06/17/19 documented as of this encounter
--- OUTSIDE RECORDS SUMMARY | 2024-05-31 07:35 | XMS_ITS | Encounter Summary ---
Author Organization [facility] Address [address] [place] [address] Care Team Providers Care Ignition Mechanic Name Role Phone Benita Shafer HOOKER INSPECTOR Primary Care Provider [phone] Reason for Visit * Reason Onset Date Comments Results 12/25/2018 Encounter Details Date Type Department Care Team (Late st Contact Info) Description 12/25/2018 Telephone [facility] OBGYN Services - [address] [address] Susana Tomlinson, MARCELO Results Social History Tobacco [...] Encounter - Susana Tomlinson RN - 12/25/2018 0910 EDT Spoke with [facility], Cristy has not has HCG blood draw sine 12/13/18. Letter sent, removed from Beta Book. documented in this encounter Plan of Treatment Not on file documented as of this encounter Visit Diagnoses Not on filedocumented in this encounter Care Teams Ignition Mechanic Relationship Specialty Start Date End Date Benita Shafer NP PCP - General 08/22/18 06/17/19 documented as of this encounter
--- OUTSIDE RECORDS SUMMARY | 2024-05-31 07:35 | XMS_ITS | Encounter Summary ---
Author Organization [facility] Address [address] [place] [address] Care Team Providers Care Financial Report Service Sales Agent Name Role Phone Benita Shafer STRADDLE BUGGY OPERATOR Primary Care Provider [phone] Reason for Visit * Reason Onset Date Comments Results 12/15/2018 Encounter Details Date Type Department Care Team (Late st Contact Info) Description 12/15/2018 Telephone [facility] OBGYN Services - [address] [address] Susana Tomlinson, MARCELO Results Social History Tobacco [...] to determine if appropriate. Please call the ROVING MARKER nurses at [phone]. When Cristy calls will give details: HCG [...] [facility] Blood specimen (specimen) 12/13/2018 6:27 EDT us Charu Flynn MD CHEMISTRY & BLOOD GAS OR DERABLES Final Result [facility] documented in this encounter Visit Diagnoses Not on filedocumented in this encounter Care Teams Financial Report Service Sales Agent Relationship Specialty Start Date End Date Benita Shafer NP PCP - General 08/22/18 06/17/19 documented as of this encounter
--- OUTSIDE RECORDS SUMMARY | 2024-05-31 07:35 | XMS_ITS | Encounter Summary ---
Author Organization [facility] Address [address] [place] [address] Care Team Providers Care Coremaker Floor Name Role Phone Benita Shafer BUILDING PERFORMANCE CONSULTANT Primary Care Provider [phone] Reason for Visit * Reason Onset Date Comments Results 11/21/2018 Encounter Details Date Type Department Care Team (Late st Contact Info) Description 11/21/2018 Telephone [facility] OBGYN Services - [address] [address] Jordyn Wolfe, MARCELO Results Social History Tobacco [...] Briscoe RN - 12/04/2018 1114 EDT Called [facility] lab to see if there were any recent betas, they state pt had been seen in there ED last night for unrelated problem. Asked them if they could run a Beta HCG off of what they collected lastnight 12/03. Called [facility] lab to see if they were able to run the HCG and asked them to fax results to [phone]. They state they will call and fax results. * Telephone Encounter - Lisseth Briscoe RN - 12/01/2018 1155 EDT Call to [facility] lab who states pt has not been [...] you of your upcoming appt 12/08 @ 4200 for a consult. If you are not able to get yourlab work done, or if you cannot keep that 12/08 appt please call [phone] to let us know. Attempted to reach pt 2 more times with no answer, no further msg left. * Telephone Encounter - Jordyn Wolfe RN - 11/30/[address] [facility] lab. Patient has not gone in [...] RN - 11/29/[address] [facility] lab. Patient has not gone in for blood work yet. Will call patient. * Telephone Encounter - Jordyn Wolfe RN - 11/28/2018 1517 EDT Call to patient. Left message that the plan is for her to go to the lab for blood work( beta-hCG) retesting which she would be due today. Order is good at [facility] in [facility]. * Telephone Encounter - Jordyn Wolfe RN - 11/28/[address] [facility] lab. Patient has not gone in [...] off that day. Patient will go to [facility]. Patient with no questions at this time. documented in this encounter Plan of Treatment Not on file documented as of this encounter Visit Diagnoses Not on filedocumented in this encounter Care Teams Coremaker Floor Relationship Specialty Start Date End Date Benita Shafer NP PCP - General 08/22/18 06/17/19 documented as of this encounter
--- OUTSIDE RECORDS SUMMARY | 2024-05-31 07:35 | XMS_ITS | Encounter Summary ---
Author Organization [facility] Address [address] [place] [address] Care Team Providers Care Bobbin Collector Name Role Phone Benita Shafer GUSTAVO Primary Care Provider [phone] Encounter Details Date Type Department Care Team (Late st Contact Info) Description 11/10/2018 8:38 EDT - 11/10/2018 23:59 EDT Hospital Encounter [facility] [address] [place] [address] Charu Flynn MD [address] [facility], [address] [place] [address] Discharge Disposition: Auto Discharge Social [...] not cover this medication. There is an fdya-fyx-lyfmkue cream or an nfzk-bob-bmesken patch with a lower concentration that is [...] on filedocumented in this encounter Care Teams Bobbin Collector Relationship Specialty Start Date End Date Benita Shafer NP PCP - General 08/22/18 06/17/19 documented as of this encounter
--- OUTSIDE RECORDS SUMMARY | 2024-05-31 07:35 | XMS_ITS | Encounter Summary ---
Author Organization [facility] Address [address] [place] [address] Care Team Providers Care Help Desk Operator Name Role Phone Benita Shafer RUG BACKING STENCILER Primary Care Provider [phone] Reason for Visit * Reason Comments Social Work Encounter Details Date Type Department Care Team (Late st Contact Info) Description 01/03/2019 Community Health Team [facility] OBGYN Services - [facility] [address] [place] [address] Eryn Diaz Social History Tobacco Use Types [...] on filedocumented in this encounter Care Teams Help Desk Operator Relationship Specialty Start Date End Date Benita Shafer NP PCP - General 08/22/18 06/17/19 documented as of this encounter
--- OUTSIDE RECORDS SUMMARY | 2024-05-31 07:35 | XMS_ITS | Encounter Summary ---
Author Organization [facility] Address [address] [place] [address] Care Team Providers Care Telesales Specialist Name Role Phone Benita Shafer GUSTAVO Primary Care Provider [phone] Reason for Visit * Reason Onset Date Comments Appointment Related 12/11/2018 Encounter Details Date Type Department Care Team (Late st Contact Info) Description 12/11/2018 Telephone [facility] Obstetrics & Midwifery - [facility] [address] [place], [place] [id number] Nohemy Sales MD [address] [facility], [address] [place] [address] Appointment Related Social History Tobacco [...] on filedocumented in this encounter Care Teams Telesales Specialist Relationship Specialty Start Date End Date Benita Shafer NP PCP - General 08/22/18 06/17/19 documented as of this encounter
--- OUTSIDE RECORDS SUMMARY | 2024-05-31 07:35 | XMS_ITS | Encounter Summary ---
Author Organization [facility] Address [address] [place] [address] Care Team Providers Care Welding Machine Setter Name Role Phone Benita Shafer GUSTAVO Primary Care Provider [phone] Encounter Details Date Type Department Care Team (Late st Contact Info) Description 11/03/2018 Orders Only [facility] OBGYN Services - [facility] [address] [place], [place] [address] Charu Flynn MD [address] [facility], [address] [place] [address] Social History Tobacco Use Types [...] HCG, External 1,652.8 2.39 - 15,000 mIU/mL [facility] Comment:Please see the scann ed report in EPIC for further interpretation. Blood specimen (specimen) 11/01/2018 11:09 EDT us Charu Flynn MD CHEMISTRY & BLOOD GAS OR DERABLES Final Result [facility] documented in this encounter Visit Diagnoses Not on filedocumented in this encounter Care Teams Welding Machine Setter Relationship Specialty Start Date End Date Benita Shafer NP PCP - General 08/22/18 06/17/19 documented as of this encounter
--- OUTSIDE RECORDS SUMMARY | 2024-05-31 07:35 | XMS_ITS | Encounter Summary ---
Author Organization [facility] Address [address] [place] [address] Care Team Providers Care Panel Edge Sealer Name Role Phone Benita Shafer NP Primary Care Provider [phone] Reason for Visit * Reason Onset Date Comments Problem 10/31/2018 Encounter Details Date Type Department Care Team (Late st Contact Info) Description 10/31/2018 Orders Only [facility] OBGYN Services - [facility] [address] [place] [address] Susana Tomlinson RN 10 weeks gestation of [...] incidental documented in this encounter Care Teams Panel Edge Sealer Relationship Specialty Start Date End Date Benita Shafer NP PCP - General 08/22/18 06/17/19 documented as of this encounter
--- OUTSIDE RECORDS SUMMARY | 2024-05-31 07:35 | XMS_ITS | Encounter Summary ---
Author Organization [facility] Address [address] [place] [address] Care Team Providers Care Air Tank Assembler Name Role Phone Benita Shafer LIQUOR COMMISSIONER Primary Care Provider [phone] Reason for Visit * Reason Onset Date Comments Results 12/04/2018 Encounter Details Date Type Department Care Team (Late st Contact Info) Description 12/04/2018 Orders Only [facility] OBGYN Services - [facility] [address] [place] [address] Lisseth Valdez RN Social History Tobacco Use [...] - 12/04/2018 1407 EDT [place] [facility], will have faxed document scanned. documented in this encounter Plan of Treatment Not on file documented as of this encounter Procedures Procedure Name Priority Date/Time Associated Diagnosis Comments QUANT BETA HCG, Routine 12/03/2018 documented in this encounter Results * QUANT BETA HCG, (12/03/2018) HCG, External 41.94 mIU/ml [facility] Comment:non- <5 Blood specimen (specimen) 12/03/2018 us Historical Provider CHEMISTRY & BLOOD GAS ORD ERABLES Final Result [facility] documented in this encounter Visit Diagnoses Not on filedocumented in this encounter Care Teams Air Tank Assembler Relationship Specialty Start Date End Date Benita Shafer NP PCP - General 08/22/18 06/17/19 documented as of this encounter
--- OUTSIDE RECORDS SUMMARY | 2024-05-31 07:35 | XMS_ITS | Encounter Summary ---
Author Organization [facility] Address [address] [place] [address] Care Team Providers Care Hoist Cylinder Loader Name Role Phone Benita Shafer DOCTOR OF PHARMACY Primary Care Provider [phone] Reason for Visit * Reason Onset Date Comments Results 11/19/2018 Encounter Details Date Type Department Care Team (Late st Contact Info) Description 11/19/2018 Telephone [facility] OBGYN [address] [place], [place] [id number] Jackie Almeida MD Results Social History Tobacco [...] Encounter - Jackie Almeida MD - 11/19/2018 0981 EDT Telephone Note: Called patient to discuss [...] 11/19/2018 9:33 PGY-1 Obstetrics and Gynecology Pager #[phone] documented in this encounter Plan of Treatment Not on file documented as of this encounter Visit Diagnoses Not on filedocumented in this encounter Care Teams Hoist Cylinder Loader Relationship Specialty Start Date End Date Benita Shafer NP PCP - General 08/22/18 06/17/19 documented as of this encounter
--- OUTSIDE RECORDS SUMMARY | 2024-05-31 07:35 | XMS_ITS | Encounter Summary ---
Author Organization [facility] Address [address] [place] [address] Care Team Providers Care Customer Quality Engineer Name Role Phone Benita Shafer RELEASE OF INFORMATION CLERK Primary Care Provider [phone] Reason for Visit * Reason Onset Date Comments Labs Only 12/11/2018 Encounter Details Date Type Department Care Team (Late st Contact Info) Description 12/11/2018 Telephone [facility] OBGYN Services - [address] [address] Susana Tomlinson, RN Labs Only Social History [...] last week from labs drawn at [facility], plan was repeat blood work yesterday 12/10, need to follow this to zero, very important to have this follow-up. Please call the [employer] nurses at [phone]. documented in this encounter Plan of Treatment Not on file documented as of this encounter Visit Diagnoses Not on filedocumented in this encounter Care Teams Customer Quality Engineer Relationship Specialty Start Date End Date Benita Shafer NP PCP - General 08/22/18 06/17/19 documented as of this encounter
--- OUTSIDE RECORDS SUMMARY | 2024-05-31 07:35 | XMS_ITS | Encounter Summary ---
Author Organization [facility] Address [address] [place] [address] Care Team Providers Care Cluster Bore Operator Name Role Phone None, Provider Primary Care Provider Unavailabl e Reason for Visit * Reason Onset Date Comments 08/30/2019 Encounter Details Date Type Department Care Team (Late st Contact Info) Description 08/30/2019 Telephone [facility] Obstetrics & Midwifery - [facility] [address] [place] [address] Kylah Jimenes RN Social History Tobacco Use [...] Initial Appt Screening Form Best Contact Number: [phone] [facility] Provider: HUGO Previous MFM Patient: YES: [...] patient packet mailed to confirmed address in [facility]: No Other comments: Has seen Endo, but not since 11/22. Previous ectopic -- notes in [facility]. HCG orders placed. Pt aware to get drawn 48 hours apart. She isaware that she will get a call from a nurse with a plan after the results are in. She is agreeable to this. Message routed to PUMP INSTALLER team to get into [facility]. documented in this encounter Plan of Treatment Not on file documented as of this encounter Results * (ABNORMAL) QUANT BETA HCG, (09/02/2019 9:42 EDT) Beta HCG Quant, 707(H) <5 mIU/ml 09/02/2019 10:30 EDT [facility] Comment: NOTE: [...] & BLOOD GAS OR DERABLES Final Result [facility] [address] [place] [address] documented in this encounter Visit Diagnoses Diagnosis affected by previous ectopic - Primary documented in this encounter Care Teams Cluster Bore Operator Relationship Specialty Start Date End Date None, Provider PCP - General 06/18/19 11/25/19 documented as of this encounter
--- OUTSIDE RECORDS SUMMARY | 2024-05-31 07:35 | XMS_ITS | Encounter Summary ---
Author Organization [facility] Address [address] [place] [address] Care Team Providers Care Insole Filler Name Role Phone Benita Shafer GUSTAVO Primary Care Provider [phone] Encounter Details Date Type Department Care Team (Late st Contact Info) Description 11/21/2018 Orders Only [facility] OBGYN Services - [address] [phone] Charu Flynn MD [address] [facility], [address] [place] [address] Social History Tobacco Use Types [...] HCG, External 299.98 2.39 - 15,000 mIU/mL [facility] Comment:Please see the scann ed report in EPIC for further interpretation. Blood specimen (specimen) 11/21/2018 11:23 EDT us Charu Flynn MD CHEMISTRY & BLOOD GAS OR DERABLES Final Result [facility] documented in this encounter Visit Diagnoses Not on filedocumented in this encounter Care Teams Insole Filler Relationship Specialty Start Date End Date Benita Shafer NP PCP - General 08/22/18 06/17/19 documented as of this encounter
--- OUTSIDE RECORDS SUMMARY | 2024-05-31 07:35 | XMS_ITS | Encounter Summary ---
Author Organization [facility] Address [address] [place] [address] Care Team Providers Care Sales Planning Manager Name Role Phone Benita Shafer ASSISTANT PROFESSOR OF COMMUNICATION Primary Care Provider Reason for Visit * Reason Comments Sore [...] 8:50 EDT - 11/21/2018 10:09 EDT Emergency [facility] Emergency Department - [address] [address] Josh Coelho, PA-C [address] [facility], [address] [place] [address] Emergency, MD Ekaterina Pharyngitis, unspecified [...] sent through Care Everywhere. * SORE THROAT (ZAMBIAN) * STREP THROAT (ZAMBIAN) documented in this encounter Medications at Time [...] not cover this medication. There is an wzpx-qjn-lyzauip cream or an ztcs-mfq-qnhjvjc patch with a lower concentration that is [...] GROUP A (STREPTOCOCCUS PYOGENES) 11/22/2018 13:12 EDT [facility] Specimen of unknown material (specimen) ENTIRE THROAT / Unknown 11/21/2018 9:25 EDT 11/21/2018 10:17 EDT Comment:Specimen submitted o n a flocked swab. us Benita Sol MD MICROBIOLOGY - GENERAL ORDERA BLES Final Result [facility] [address] [place] [address] documented in this encounter Visit Diagnoses Diagnosis [...] RN) documented in this encounter Care Teams Sales Planning Manager Relationship Specialty Start Date End Date Benita Shafer NP PCP - General 08/22/18 06/17/19 documented as of this encounter
--- OUTSIDE RECORDS SUMMARY | 2024-05-31 07:35 | XMS_ITS | Encounter Summary ---
Author Organization [facility] Address [address] [place] [address] Care Team Providers Care Track Service Person Name Role Phone Benita Shafer RUN BOAT OPERATOR Primary Care Provider [phone] Encounter Details Date Type Department Care Team [...] on filedocumented in this encounter Care Teams Track Service Person Relationship Specialty Start Date End Date Benita Shafer NP PCP - General 08/22/18 06/17/19 documented as of this encounter
--- OUTSIDE RECORDS SUMMARY | 2024-05-31 07:35 | XMS_ITS | Encounter Summary ---
Author Organization [facility] Address [address] [place] [address] Care Team Providers Care Trade Promotion Analyst Name Role Phone Benita Shafer GUSTAVO Primary Care Provider [phone] Reason for Visit * Reason Onset Date Comments Labs Only 11/01/2018 Encounter Details Date Type Department Care Team (Late st Contact Info) Description 11/01/2018 Telephone [facility] OBGYN Services - [facility] [address] [place], [place] [address] Charu Flynn MD [address] [facility], [address] [place] [address] Labs Only Social History Tobacco [...] RN - 11/01/2018 1606 EDT Spoke with [facility] BHCG today = 1652.8. Cristy ANDERSON: [...] to go to ER, can go to [facility]. Spoke with Cristy: she denies SOB, but reports arm hurts when she coughs or moves, does not think her arm is swollen, reports had mild intermittent 4/10 cramping over weekend, no VB. Advised as HCG dropped appropriately will not need another MTX. She will proceed to [facility] ER. Spoke with ER triage: gave summary & Cristy ETA 5:30-6pm. * Telephone Encounter - Susana Tomlinson RN - 11/01/2018 1415 EDT Spoke with Radha @ [facility] lab, she could see [facility] lab orders [...] CBC (if needed) cannot be run from [facility]. RTCB to [phone] with quant HCG results. * Telephone Encounter - Miley Wolff - 11/01/2018 1400 EDT Radha from the outpatient lab at [facility] has some questions about the labwork for [...] on filedocumented in this encounter Care Teams Trade Promotion Analyst Relationship Specialty Start Date End Date Benita Shafer NP PCP - General 08/22/18 06/17/19 documented as of this encounter
--- OUTSIDE RECORDS SUMMARY | 2024-05-31 07:35 | XMS_ITS | Encounter Summary ---
Author Organization [facility] Address [address] [place] [address] Care Team Providers Care Taping Foreman Name Role Phone None, Provider Primary Care Provider Unavailabl e Encounter Details Date Type Department Care Team (Late st Contact Info) Description 08/31/2019 8:45 EDT Phlebotomy Only [facility] 2 Phlebotomy [address] [place] [address] Sign Poster, Acc Phlebotomy Ectopic , unspecified location, unspecified [...] Quant, 316(H) <5 mIU/ml 08/31/2019 11:17 EDT [facility] Comment: NOTE: : Negative: Less than 5mIU/mL Indeterminant: Between 5 and 25 mIU/mL, recommend repeat testing in 48 hours Positive: Greater than 25 mIU/mL The results of this assay can be falsely lowered due to the consumption of Biotin. Blood 08/31/2019 8:45 EDT 08/31/2019 10:29 EDT us Charu Flynn MD CHEMISTRY & BLOOD GAS OR DERABLES Final Result [facility] [address] [place] [address] documented in this encounter Visit Diagnoses Diagnosis Ectopic , unspecified location, unspecified whether intrauterine present affected by previous ectopic documented in this encounter Care Teams Taping Foreman Relationship Specialty Start Date End Date None, Provider PCP - General 06/18/19 11/25/19 documented as of this encounter
--- OUTSIDE RECORDS SUMMARY | 2024-05-31 07:35 | XMS_ITS | Encounter Summary ---
Author Organization [facility] Address [address] [place] [address] Care Team Providers Care Special Inspector Name Role Phone None, Provider Primary [...] 8:19 EST - 06/18/2019 15:19 EST Emergency [facility] Emergency Department - [facility] [address] [place] [phone] Maldonado Schuler PA-C [address] [place] [address], [address] [place] [phone] Acute non-recurrent maxillary sinusitis (Primary Dx); Acute [...] be sent through Care Everywhere. * Sinusitis (Kyrgyz) documented in this encounter Medications at Time [...] or Self Correction documented in this encounter ED Notes * [...] recent long-distance travel or immobilizations. 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 Review of [...] appears to be a good tracing. Attending treasurer savings bank not immediately available for acute interpretation. Radiology [...] follow-up with primary care physician and discussed eytl-qmx-bofueny medications for pain control. Patient and family [...] 06/18/2019 16:2 1 EST us Scan 2 Tow Truck Driver PROCEDURE/MINOR SURGICAL OR DERABLES Final Result * [...] andagree with the findings. Maldonado Schuler PA-C [facility] ORDERABLES Final Result * (ABNORMAL) BASIC METABOLIC PANEL (BMP) (06/18/2019 9:01 EST) Sodium 136 136 - 145 mEq/L 06/18/2019 9:25 [facility] Potassium 4.6 3.5 - 5.0 mEq/L 06/18/2019 9:25 [facility] Chloride 102 96 - 110 mEq/L 06/18/2019 9:25 [facility] CO2 Total 27 22 - 32 mEq/L 06/18/2019 9:25 [facility] Glucose 256(H) 70 - 100 mg/dL 06/18/2019 9:25 [facility] Calcium 9.2 8.5 - 10.5 mg/dL 06/18/2019 9:25 [facility] Calculated Calcium 9.4 8.5 - 10.5 mg/dL 06/18/2019 9:25 [facility] BUN 10 10 - 26 mg/dL 06/18/2019 9:25 [facility] Creatinine 0.43(L) 0.52 - 1.04 mg/dL 06/18/2019 9:25 [facility] eGFR 133 >60 mL/min/1.7 3m2 06/18/2019 9:25 [facility] Comment:eGFR calculated gil curtis CKD-EPI equation for non- Americans. Multiply eGFR by 1.16 for patients. Blood VENOUS BLOOD / Unknown Venipuncture / Unknown 06/18/2019 9:01 EST 06/18/2019 9:09 EST Maldonado Schuler PA-C CHEMISTRY & BLOOD GAS O RDERABLES Final Result [facility] [address] [place] [address] * (ABNORMAL) COMPLETE BLOOD COUNT AND DIFFERENTIAL (06/18/2019 9:01 EST) WBC 10.84 4.00 - 12.40 K/cmm 06/18/2019 9:15 [facility] RBC 4.58 3.86 - 5.04 M/cmm 06/18/2019 9:15 [facility] Hemoglobin 14.1 11.6 - 15.2 gm/dL 06/18/2019 9:15 [facility] HCT 40.9 34.9 - 44.4 % 06/18/2019 9:15 [facility] MCV 89 81 - 98 fl 06/18/2019 9:15 [facility] MCH 30.8 26.7 - 33.3 pg 06/18/2019 9:15 [facility] MCHC 34.5 32.1 - 35.9 gm/dL 06/18/2019 9:15 [facility] RDW-CV 12.2 <14.7 % 06/18/2019 9:15 [facility] RDW-SD 39.5 <50.4 fl 06/18/2019 9:15 [facility] PLT 349 141 - 377 K/cmm 06/18/2019 9:15 [facility] MPV 9.6 9.5 - 12.7 fl 06/18/2019 9:15 [facility] % Neutrophils 51.3 % 06/18/2019 9:15 [facility] % Lymphocytes 33.8 % 06/18/2019 9:15 [facility] % Monocytes 9.9 % 06/18/2019 9:15 [facility] % Eosinophils 4.2 % 06/18/2019 9:15 [facility] % Basophils 0.5 % 06/18/2019 9:15 [facility] % Immature Grans 0.3 % 06/18/19 20 9:15 [facility] Absolute Neutrophils 5.57 2.20 - 8.85 K/cmm 06/18/2019 9:15 [facility] Absolute Lymphocytes 3.66(H) 1.09 - 3.30 K/cmm 06/18/2019 9:15 [facility] Absolute Monocytes 1.07(H) 0.10 - 0.80 K/cmm 06/18/2019 9:15 [facility] Absolute Eosinophils 0.46 0.03 - 0.61 K/cmm 06/18/2019 9:15 [facility] ABS Basophils 0.05 0.01 - 0.11 K/cmm 06/18/2019 9:15 [facility] Absolute Immature Grans 0.03 0.00 - 0.06 K/cmm 06/18/2019 9:15 [facility] Type of Differential: Auto 06/18/2019 9:15 [facility] Blood VENOUS BLOOD / Unknown Venipuncture / Unknown 06/18/2019 9:01 EST 06/18/2019 9:09 EST us Maldonado Taylor Clair PA-C PACKAGES & DNA PROBE OR DERABLES Final Result [facility] [address] [place] [id number] * EKG 12-LEAD (06/18/2019 8:28 EST) 06/18/2019 8:28 EST Narrative [facility] EKG - 06/18/2019 14:05 EST ?[facility] Emergency ? Test Date: ?2019-06-18 Pat Name: ? CRISTY LUO ?Department: ?? ED ? Room: ? GT33 Gender: ? Female ? Stem Roller Or Crusher Operator: ?? [id number] : ?1985 ? Requested By: Reid BRYAN MALDONADO Order Number: [id number] ? Reading MD: ?? FRAN LUCIANO SA, MD ? Measurements Intervals ?[place] ? Rate: ? 94 ? P: ?51 WA: ? 138 ?QRS: ?8 QRSD: ? 88 [...] Fran Dowling Sa, MD - 06/18/2019 [facility] Emergency Test Date: 2019-06-18 Pat Name: CRISTY LUO Department: ED Room: 33 Gender: Female Stem Roller Or Crusher Operator: [id number] : 1985 Requested By: [facility] R[facility] OKEEFE Order Number: [id number] Sammie MD: FRAN GRAYSON Measurements Intervals [place] Rate: 94 P: 51 WA: 138 QRS: 8 QRSD: 88 T: 1 [...] Schuler PA-C CARDIAC ECG ORDERABLES Final Result [facility] EKG documented in this encounter [...] not cover this medication. There is an biqi-ndl-nyotrte cream or an wgks-uua-xzcdmna patch with a lower concentration that is [...] dose, On Tue06/18/19 at 0900, STAT 0906 ([facility] ider: Judi Merrill RN) documented in this encounter Care Teams Special Inspector Relationship Specialty Start Date End Date None, Provider PCP - General 06/18/19 11/25/19 documented as of this encounter
--- OUTSIDE RECORDS SUMMARY | 2024-05-31 07:35 | XMS_ITS | Encounter Summary ---
Author Organization [facility] Address [address] [place] [address] Care Team Providers Care Grinding Mill Operator Name Role Phone Benita Shafer GUSTAVO Primary Care Provider [phone] Encounter Details Date Type Department Care Team (Late st Contact Info) Description 12/25/2018 Orders Only [facility] OBGYN Services - [facility] [address] [place], [place] [id number] Charu Flynn MD [address] [facility], [address] [place] [address] Social History Tobacco Use Types [...] HCG, External 13.63 2.39 - 15,000 mIU/mL [facility] Comment:Please see the scann ed report in EPIC for further interpretation. Blood specimen (specimen) 12/13/2018 6:27 EDT us Charu Flynn MD CHEMISTRY & BLOOD GAS OR DERABLES Final Result [facility] documented in this encounter Visit Diagnoses Not on filedocumented in this encounter Care Teams Grinding Mill Operator Relationship Specialty Start Date End Date Benita Shafer NP PCP - General 08/22/18 06/17/19 documented as of this encounter
--- OUTSIDE RECORDS SUMMARY | 2024-05-31 07:36 | XMS_ITS | Encounter Summary ---
Author Organization [facility] Address [address] [place] [address] Care Team Providers Care Metallurgical Inspector Name Role Phone None, Provider Primary Care Provider Unavailabl e Reason for Visit * Reason Comments Threatened Miscarriage 6 weeks , started with brown discharge Cher, saw OB said it could be normal spotting. Tonight started with bright red vaginal bleeding. Problem Encounter Details Date Type Department Care Team (Late st Contact Info) Description 02/24/2017 22:50 EDT - 02/25/2017 3:35 EDT [facility] Emergency Department - Main [place] [address] [place] [address] Kylah Whitaker PA-C [address] [address], [address] [place] [address] Emergency, MD Ekaterina Vaginal bleeding [...] be sent through Care Everywhere. * MISCARRIAGE (POLISH) * VAGINAL BLEEDING (POLISH) documented in this encounter Medications at [...] 0112 EDT Ultrasound at the bedside. * rFan Diaz RN - 02/25/2017 0111 EDT Blood [...] suprapubic, and RLQ). 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 (02:35) Discussed the patient with DRY CLEANER APPRENTICE. (03:07) Reevaluation. Patient endorsed continued pain but [...] under the direction and presence of Kylah Whitakre PA. Kylah Whitaker PA: I personally performed [...] be added GLUCOSE, SERUM 02/25/2017 2:40 EDT [facility] Number for problems [id number] (ED) 02/25/2017 2:40 EDT [facility] TOPOGRAPHY UNKNOWN / Unknown 02/25/2017 2:45 EDT 02/25/2017 2:46 EDT us Kylah Whitaker PA-C HEMATOLOGY & PF4 ORDERABLES Penny l Result [facility] [address] [place] [address] * RAD US PELVIS TRANSABDOMINAL AND TRANSVAGINAL (02/25/2017 1:42 EDT) Anatomical Region Laterality Modality Other 02/25/2017 1:42 EDT 02/25/2017 9:29 EDT Narrative 02/25/2017 9:29 EDT RAD US PELVIS TRANSABDOMINAL AND TRANSVAGINAL ??02/25/2017 1:42 AM Clinical History/Comments: vaginal bleeding Comparison: Per patient, ultrasound examination was obtained February 22, 2017 at her metalizing supervisor's office. This is not available for review. [...] was obtained February 22, 2017 at her metalizing supervisor's office. This is not available for review. [...] 70 - 100 mg/dl 02/25/2017 3:22 EDT [facility] BLOOD SPECIMEN / Unknown 02/25/2017 0:52 EDT 02/25/2017 1:11 EDT us Kylah Whitaker PA-C CHEMISTRY & BLOOD GAS ORDERABLES Final Result Performing Organization Address City/State/[facility] Co de Phone Number [facility] [address] [place] [address] * (ABNORMAL) HEMAGRAM AND DIFFERENTIAL (02/25/2017 0:52 EDT) WBC 18.10(H) 4.0 - 12.4 K/cmm 02/25/2017 1:16 [facility] RBC 4.45 3.86 - 5.04 M/cmm 02/25/2017 1:16 [facility] Hemoglobin 13.9 11.6 - 15.2 gm/dl 02/25/2017 1:16 [facility] HCT 38.1 34.9 - 44.4 % 02/25/2017 1:16 [facility] MCV 86 81 - 98 fl 02/25/2017 1:16 [facility] MCH 31.2 26.7 - 33.3 pg 02/25/2017 1:16 [facility] MCHC 36.5(H) 32.1 - 35.9 gm/dl 02/25/2017 1:16 [facility] RDW-CV 11.9 <14.7 % 02/25/2017 1:16 [facility] RDW-SD 37.2 <50.4 fl 02/25/2017 1:16 [facility] PLT 341 141 - 377 K/cmm 02/25/2017 1:16 [facility] MPV 9.4(L) 9.5 - 12.7 fl 02/25/2017 1:16 [facility] Neutrophils 62.0 % 02/25/2017 1:38 [facility] Lymphocytes 29.0 % 02/25/2017 1:38 [facility] Monocytes 6.0 % 02/25/2017 1:38 [facility] Eosinophils 3.0 % 02/25/2017 1:38 [facility] ABS Neutrophils 11.22(H) 2.20 - 8.85 K/cmm 02/25/2017 1:38 [facility] ABS Lymphs 5.25(H) 1.09 - 3.30 K/cmm 02/25/2017 1:38 [facility] ABS Monocytes 1.09(H) 0.1 - 0.8 K/cmm 02/25/2017 1:38 [facility] ABS Eosinophils 0.54 0.03 - 0.61 K/cmm 02/25/2017 1:38 [facility] Type of Diff: Manual 02/25/2017 1:38 [facility] Blood specimen (specimen) BLOOD SPECIMEN / Unknown 02/25/2017 0:52 EDT 02/25/2017 1:11 EDT Kylah Whitaker PA-C PACKAGES & DNA PROBE ORDERABLES Final Result [facility] [address] [place] [address] * (ABNORMAL) HCG FOR (02/25/2017 0:52 EDT) Quant Beta HCG, Preg 1,604(H) <5 mIU/ml 02/25/2017 2:06 [facility] Comment: Reference Range: Negative = <5 Indeterminate = 5-25 recommend repeat in 48 hours. Positive = >25 Blood specimen (specimen) BLOOD SPECIMEN / Unknown 02/25/2017 0:52 EDT 02/25/2017 1:11 EDT Kylah Whitaker PA-C CHEMISTRY & BLOOD GAS ORDERABLES Final Result [facility] [address] [place] [address] documented in this encounter Visit Diagnoses Diagnosis [...] RN) documented in this encounter Care Teams Metallurgical Inspector Relationship Specialty Start Date End Date None, Provider PCP - General 03/08/16 08/21/18 documented as of this encounter
--- OUTSIDE RECORDS SUMMARY | 2024-05-31 07:36 | XMS_ITS | Encounter Summary ---
Author Organization [facility] Address [address] [place] [address] Care Team Providers Care Face And Fill Packer Name Role Phone Benita Shafer BUILDING CODE ADMINISTRATOR Primary Care Provider [phone] Reason for Visit * Reason Onset Date Comments Labs Only 10/29/2018 Encounter Details Date Type Department Care Team (Late st Contact Info) Description 10/29/2018 Telephone [facility] OBGYN Services - [address] [phone] Deborah Saleh MD [address] [place] [address] Labs Only Social History [...] Encounter - Deborah Saleh MD - 10/29/2018 9868 EDT Left voicemail indicating we received Day 4 HCG s/p MTX. No changes to plan. Next lab draw on Day 7. Deborah Saleh MD 10/29/2018 17:50 Obstetrics & Gynecology, PGY-4 Pager [phone] documented in this encounter Plan of Treatment Not on file documented as of this encounter Visit Diagnoses Diagnosis Ectopic , unspecified location, unspecified whether intrauterine present- Primary documented in this encounter Care Teams Face And Fill Packer Relationship Specialty Start Date End Date Benita Shafer NP PCP - General 08/22/18 06/17/19 documented as of this encounter
--- OUTSIDE RECORDS SUMMARY | 2024-05-31 07:36 | XMS_ITS | Encounter Summary ---
Author Organization [facility] Address [address] [place] [address] Care Team Providers Care Elevator Service Mechanic Name Role Phone None, Provider Primary [...] 20:46 EDT - 12/05/2016 2:[address] [facility] Emergency Department - [address] [address] Benita Sol MD [address] [place] [address], [address] [place] [address] Emergency, MD Ekaterina Type 2 diabetes mellitus with hyperglycemia, with long-term current use of insulin ([facility]) (Primary Dx) Discharge Disposition: Home [...] Allergy status to analgesic agent status-Z88.6[ICD-10-CM] Z79.4 [facility] (current) use of insulin-Z79.4[ICD-10-CM] documented in this encounter Discharge Instructions * Discharge Instructions* Benita Sol MD - 12/05/2016 2:13 EDT Metformin is $4/month at [facility]. Please see a primary care doctor [facility]. You can call from our list of accepting providers. Continue to take your Lantus. This is very important. * Attachments The following attachments cannot be sent through Care Everywhere. * DIABETES: TYPE 2: METFORMIN: GENERAL INFO (AMHARIC) * DIABETES DIET GUIDELINES: GENERAL INFO (AMHARIC) documented in this encounter Medications at [...] is supposed totake insulin but im workin [employer] my insurance for it right now. HPI [...] Value Status Glucose, Fingerstick 350 (*) Final [place] Helper ID [id number] Final GLUCOSE, GLUCOMETER - Abnormal Glucose, Fingerstick 316 (*) Final B[place]y Helper ID [id number] Final HEMAGRAM AND DIFFERENTIAL - Abnormal WBC [...] Bilirubin Neg Final Ketones Neg Final Specific [place] 1.020 Final pH 6.0 Final Protein Neg Final Urobilinogen 0.2 Final Nitrite Neg Final Leuk Esterase Neg Final Tech ID [id number] Final POCT TEST, CLINITEK UPT Result Neg Final Tech ID [id number] Final POCT GLUCOSE Relevant Data Procedures ED [...] the Emergency Department: Improved PCP: Provider None [facility] 12/05/2016 9:25 No flowsheet data found. This [...] (12/05/2016 1:16 EDT) Color YELLOW 12/05/2016 1:24 [facility] Clarity, UA Clear 12/05/2016 1:24 [facility] Glucose 3+(A) Neg 12/05/2016 1:24 [facility] Bilirubin Neg Neg 12/05/2016 1:24 [facility] Ketones Neg Neg 12/05/2016 1:24 [facility] Specific [place] 1.020 1.001 - 1.035 12/05/2016 1:24 [facility] Blood 2+(A) Neg 12/05/2016 1:24 [facility] pH 6.0 4.6 - 8.0 12/05/2016 1:24 [facility] Protein Neg Neg 12/05/2016 1:24 [facility] Urobilinogen 0.2 0.2 - 1.0 E.U./dl 12/05/2016 1:24 [facility] Nitrite Neg Neg 12/05/2016 1:24 [facility] Leuk Esterase Neg Neg 12/05/2016 1:24 [facility] principal architectural firm ID [id number] 12/05/2016 1:24 [facility] Comment:Test performed at [facility] Department Urine specimen (specimen) URINE / Unknown 12/05/2016 1:16 EDT 12/05/2016 1:24 EDT Benita Sol MD POINT OF CARE TEST ORDERABLES Final Result Performing Organization Address City/[facility]/ZIP Co de Phone Number [facility] [address] [place] [address] * POCT TEST, CLINITEK (12/05/2016 1:14 EDT) UPT Result Neg Neg 12/05/2016 1:27 EDT [facility] principal architectural firm ID [id number] 12/05/2016 1:27 EDT [facility] Comment:Test performed at [facility] Department Urine specimen (specimen) URINE / Unknown 12/05/2016 1:14 EDT 12/05/2016 1:27 EDT Benita Sol MD POINT OF CARE TEST ORDERABLES Final Result Performing Organization Address City/[facility]/ZIP Co de Phone Number [facility] [address] [place] [address] * (ABNORMAL) BASIC METABOLIC PANEL (12/05/2016 1:03 EDT) Sodium 140 136 - 145 mEq/L 12/05/2016 1:41 [facility] Potassium 4.4 3.5 - 5.0 mEq/L 12/05/2016 1:41 [facility] Chloride 101 96 - 110 mEq/L 12/05/2016 1:41 [facility] CO2 26 22 - 32 mEq/L 12/05/2016 1:41 [facility] BUN 14 10 - 26 mg/dl 12/05/2016 1:41 [facility] Creatinine 0.48(L) 0.52 - 1.04 mg/dl 12/05/2016 1:41 [facility] GFR, Calculated 131 >60 ml/min/1.7 3m2 12/05/2016 1:41 [facility] Comment: eGFR calculated using CKD-EPI equation for non Americans. Multiply eGFR by 1.16 for Americans. Calcium 9.9 8.5 - 10.5 mg/dl 12/05/2016 1:41 [facility] Calculated Calcium 9.7 8.5 - 10.5 mg/dl 12/05/2016 1:41 [facility] Glucose, Serum 295(H) 70 - 100 mg/dl 12/05/2016 1:41 [facility] Fasting? Unknown 12/05/2016 1:17 [facility] Blood specimen (specimen) BLOOD SPECIMEN / Unknown 12/05/2016 1:03 EDT 12/05/2016 1:17 EDT us Benita Sol MD CHEMISTRY & BLOOD GAS ORDERAB LES Final Result [facility] [address] [place] [address] * (ABNORMAL) HEMAGRAM AND DIFFERENTIAL (12/05/2016 1:03 EDT) WBC 16.71(H) 4.0 - 12.4 K/cmm 12/05/2016 1:22 [facility] RBC 5.08(H) 3.86 - 5.04 M/cmm 12/05/2016 1:22 [facility] Hemoglobin 15.6(H) 11.6 - 15.2 gm/dl 12/05/2016 1:22 [facility] HCT 43.8 34.9 - 44.4 % 12/05/2016 1:22 [facility] MCV 86 81 - 98 fl 12/05/2016 1:22 [facility] MCH 30.7 26.7 - 33.3 pg 12/05/2016 1:22 [facility] MCHC 35.6 32.1 - 35.9 gm/dl 12/05/2016 1:22 [facility] RDW-CV 12.2 <14.7 % 12/05/2016 1:22 [facility] RDW-SD 38.3 <50.4 fl 12/05/2016 1:22 [facility] PLT 415(H) 141 - 377 K/cmm 12/05/2016 1:22 [facility] MPV 9.6 9.5 - 12.7 fl 12/05/2016 1:22 [facility] Neutrophils 54.0 % 12/05/2016 2:05 [facility] Lymphocytes 34.0 % 12/05/2016 2:05 [facility] Monocytes 7.0 % 12/05/2016 2:05 [facility] Eosinophils 3.0 % 12/05/2016 2:05 [facility] Basophils 2.0 % 12/05/2016 2:05 [facility] ABS Neutrophils 9.03(H) 2.20 - 8.85 K/cmm 12/05/2016 2:05 [facility] ABS Lymphs 5.68(H) 1.09 - 3.30 K/cmm 12/05/2016 2:05 [facility] ABS Monocytes 1.17(H) 0.1 - 0.8 K/cmm 12/05/2016 2:05 [facility] ABS Eosinophils 0.50 0.03 - 0.61 K/cmm 12/05/2016 2:05 [facility] ABS Basophils 0.33(H) 0.01 - 0.11 K/cmm 12/05/2016 2:05 [facility] Type of Diff: Manual 12/05/2016 2:05 [facility] Blood specimen (specimen) BLOOD SPECIMEN / Unknown 12/05/2016 1:03 EDT 12/05/2016 1:18 EDT us Benita Sol MD PACKAGES & DNA PROBE ORDERABL ES Final Result [facility] [address] [place] [address] * (ABNORMAL) GLUCOSE, GLUCOMETER (12/05/2016 0:32 EDT) Glucose, Fingerstick 316(H) 70 - 100 mg/dl 12/05/2016 0:32 EDT [facility] [place] Helper [place] [id number] 12/05/2016 0:32 EDT [facility] Comment:Test Performed by Nu rsing Services BLOOD SPECIMEN / Unknown 12/05/2016 0:32 EDT 12/05/2016 0:33 EDT us Provider Unknown CHEMISTRY & BLOOD GAS ORDERA BLES Final Result [facility] [address] [place] [address] * (ABNORMAL) GLUCOSE, GLUCOMETER (12/04/2016 20:58 EDT) Glucose, Fingerstick 350(H) 70 - 100 mg/dl 12/04/2016 21:02 EDT [facility] [place] [id number] 12/04/2016 21:02 EDT [facility] Comment:[facility] BLOOD SPECIMEN / Unknown 12/04/2016 20:58 EDT 12/04/2016 21:02 EDT us Provider Unknown CHEMISTRY & BLOOD GAS ORDERA BLES Final Result [facility] [address] [place] [address] documented in this encounter Visit Diagnoses Diagnosis Type 2 diabetes mellitus with hyperglycemia, with long-term current use of insulin ([facility])- Primary documented in this [...] 12/05/2016 documented in this encounter Care Teams Elevator Service Mechanic Relationship Specialty Start Date End Date None, Provider PCP - General 03/08/16 08/21/18 documented as of this encounter
--- OUTSIDE RECORDS SUMMARY | 2024-05-31 07:36 | XMS_ITS | Encounter Summary ---
Author Organization [facility] Address [address] [place] [address] Care Team Providers Care Volcanology Teacher Name Role Phone Benita Shafer GUSTAVO Primary Care Provider [phone] Reason for Visit * Reason Onset Date Comments Results 10/24/2018 Encounter Details Date Type Department Care Team (Late st Contact Info) Description 10/24/2018 Telephone [facility] OBGYN Services - [address] [phone] Ana Coronado MD [address] [facility], [address] [place] [address] Results Social History Tobacco Use [...] - Ana Coronado MD, MD - 10/24/2018 9704 EDT Patient called with hCG level and [...] Preg 1,531(H) <5 mIU/ml 10/26/2018 9:52 EDT [facility] Comment: Reference Range: Negative = <5 Indeterminate = 5-25 recommend repeat in 48 hours. Positive = >25 The results of this assay can be falsely lowered due to the consumption of Biotin. Blood specimen (specimen) BLOOD SPECIMEN / Unknown 10/26/2018 8:48 EDT 10/26/2018 9:00 EDT Ana Coronado MD CHEMISTRY & BLOOD GAS [facility] Final Result [facility] [address] [place] [address] documented in this encounter Visit Diagnoses Diagnosis Complication of in first trimester- Primary documented in this encounter Care Teams Volcanology Teacher Relationship Specialty Start Date End Date Benita Shafer NP PCP - General 08/22/18 06/17/19 documented as of this encounter
--- OUTSIDE RECORDS SUMMARY | 2024-05-31 07:36 | XMS_ITS | Encounter Summary ---
Author Organization [facility] Address [address] [place] [address] Care Team Providers Care Contact Lens Curve Grinder Name Role Phone Benita Shafer GUSTAVO Primary Care Provider [phone] Reason for Visit * Reason Comments Problem Encounter Details Date Type Department Care Team (Late st Contact Info) Description 10/24/2018 13:00 EDT Initial consult [facility] OBGYN Services - [address] [phone] Ana Coronado MD [address] [facility], [address] [place] [address] Complication of in first trimester [...] all of her future care here at [facility]. Is planning to see the maternal- medicine doctors for her . O: CLOTHING BUSHELER US OB FIRST TRIMESTER TRANSVAGINAL Indication Early monitoring. Type II DM. Recurrent miscarriages. History ======= Previous Outcomes 6 Para 0 [place] children born (T) 0 [place] children born (P) 0 Abortions (A) 5 [...] Visualized. Embryo: Not visualized. Impression OB [place]vaginal [id number] 1. Small gestational sac with a yolk [...] she was told. I spent 30 minutes [id number] with the patient of which more than 50% of this time was spent counseling her about above documented issues and discussion. documented in this encounter Plan of Treatment Not on file documented as of this encounter Visit Diagnoses Diagnosis Complication of in first trimester- Primary documented in this encounter Care Teams Contact Lens Curve Grinder Relationship Specialty Start Date End Date Benita Shafer NP PCP - General 08/22/18 06/17/19 documented as of this encounter
--- OUTSIDE RECORDS SUMMARY | 2024-05-31 07:36 | XMS_ITS | Encounter Summary ---
Author Organization [facility] Address [address] [place] [address] Care Team Providers Care Battery Technician Name Role Phone None, Provider Primary Care Provider Unavailabl e Reason for Visit * Reason Onset Date Comments Other 07/30/2016 Encounter Details Date Type Department Care Team (Late st Contact Info) Description 07/30/2016 Telephone [facility] Ophthalmology - [address] [phone] Broderick Schwartz MD [address] [facility], [address] [place] [address] Other Social History Tobacco Use [...] Encounter - Catherine Dhillon RN - 07/30/2016 6196 EST Tried one more time, still no go. Placed letter in mail today. 3143 Called pt. She states if fax will [...] and needs a letter faxed to work: [phone]. Just needs to state she had an appointment here today with Dr Schwartz @ 12:30. documented in this encounter Plan of Treatment Not on file documented as of this encounter Visit Diagnoses Not on filedocumented in this encounter Care Teams Battery Technician Relationship Specialty Start Date End Date None, Provider PCP - General 03/08/16 08/21/18 documented as of this encounter
--- OUTSIDE RECORDS SUMMARY | 2024-05-31 07:36 | XMS_ITS | Encounter Summary ---
Author Organization [facility] Address [address] [place] [address] Care Team Providers Care Optometric Assistant Name Role Phone None, Provider Primary Care Provider Unavailabl e Reason for Visit * Reason Comments Abscess Encounter Details Date Type Department Care Team (Latest Contact Info) Description 07/15/2016 11:37 EST - 07/15/2016 14:25 EST Hospital Encounter [facility] - [address] [phone] Moy Marquez MD [address] [place] [phone] Unknown, Provider, Perianal abscess (Primary Dx); Nausea and vomiting, intractability of vomiting not specified, unspecified vomiting type; Type 2 diabetes mellitus with complication, unspecified jail insulin use status ([facility]) Discharge Disposition: Home or Self Care [...] 14:19 EST For your perianal abscess, take [id number] Tylenol (acetaminophen) as needed for pain. Keep [...] sent through Care Everywhere. * PERIRECTAL ABSCESS ([place]) documented in this encounter [...] UA Clear Final Bilirubin Neg Final Specific [place] 1.015 Final pH 5.5 Final Urobilinogen 0.2 Final Nitrite Neg Final Tech ID [id number] Final POCT GLUCOSE - Normal Glucose, POC [...] a primary care doctor; [facility] which the patient was amenable to. Plan: Perirectal abscess - s/p I&D with no purulence expressed - CBC and Diff Diabetes, type 2 - Hemoglobin A1C - BMP - metformin 500 mg BID [facility] DISPOSITION: Discharged The patient's pain was managed to an adequate level weighing risk vs. benefit of further medications. Upon departure from the Emergency Department, the patient's pain was 2 on a zero to ten scale. Condition at departure from the Emergency Department: Stable PCP: Provider None [facility] 07/15/2016 14:10 No flowsheet data found. Callum Vicente MD, 07/15/2016 14:35 Family Medicine PGY 1, Page #[phone] Cosigned by Moy Marquez MD at 07/15/2016 21:17 EST documented in this encounter Plan of Treatment Not on file documented as of this encounter Procedures Procedure Name Priority Date/Time Associated Diagnosis Comments HEMOGLOBIN A1C STAT 07/15/2016 13:18 EST Type 2 diabetes mellitus with complication, unspecified jail insulin use status ([facility]) COMPLETE BLOOD COUNT AND DIFFERENTIAL STAT 07/15/2016 13:11 EST Type 2 diabetes mellitus with complication, unspecified ad terminal makeup operator insulin use status ([facility]) BASIC METABOLIC PANEL (BMP) STAT 07/15/2016 13:11 EST Nausea and vomiting, intractability of vomiting not specified, unspecified vomiting type POCT GLUCOSE, INTERFACED STAT 07/15/2016 12:28 EST Type 2 diabetes mellitus with complication, unspecified jail insulin use status ([facility]) URINE SEDIMENT (MICRO) WITHOUT REFLEX TO [...] Hemoglobin A1C 11.2 % 07/16/2016 11:24 EST [facility] Comment: Reference [...] Avg Glucose 275 mg/dl 7 11:24 EST [facility] Comment: eAG represents the A1c result expressed as average glucose in mg/dl. Blood specimen (specimen) BLOOD SPECIMEN / Unknown 07/15/2016 13:18 EST 07/15/2016 13:28 EST us Callum Vicente MD MPH CHEMISTRY & BLOOD GAS ORD ERABLES Final Result [facility] [address] [place] [address] * (ABNORMAL) HEMAGRAM AND DIFFERENTIAL (07/15/2016 13:11 EST) WBC 12.30 4.0 - 12.4 K/cmm 07/15/2016 13:30 [facility] RBC 4.88 3.86 - 5.04 M/cmm 07/15/2016 13:30 [facility] Hemoglobin 15.2 11.6 - 15.2 gm/dl 07/15/2016 13:30 [facility] HCT 42.1 34.9 - 44.4 % 07/15/2016 13:30 [facility] MCV 86 81 - 98 fl 07/15/2016 13:30 [facility] MCH 31.1 26.7 - 33.3 pg 07/15/2016 13:30 [facility] MCHC 36.1(H) 32.1 - 35.9 gm/dl 07/15/2016 13:30 [facility] RDW-CV 12.5 11.7 - 14.6 % 07/15/2016 13:30 [facility] RDW-SD 38.5 37.6 - 50.3 fl 07/15/2016 13:30 [facility] PLT 331 141 - 377 K/cmm 07/15/2016 13:30 [facility] MPV 9.5 9.5 - 12.7 fl 07/15/2016 13:30 [facility] % Neutrophils 72.6 % 07/15/2016 13:30 [facility] % Lymphocytes 18.7 % 07/15/2016 13:30 [facility] % Monocytes 7.8 % 07/15/2016 13:30 [facility] % Eosinophils 0.7 % 07/15/2016 13:30 [facility] % Basophils 0.2 % 07/15/2016 13:30 [facility] ABS Neutrophils 8.93(H) 2.20 - 8.85 K/cmm 07/15/2016 13:30 [facility] ABS Lymphs 2.30 1.09 - 3.30 K/cmm 07/15/2016 13:30 [facility] ABS Monocytes 0.96(H) 0.1 - 0.8 K/cmm 07/15/2016 13:30 [facility] ABS Eosinophils 0.09 0.03 - 0.61 K/cmm 07/15/2016 13:30 [facility] ABS Basophils 0.02 0.01 - 0.11 K/cmm 07/15/2016 13:30 [facility] Type of Diff: Automated 07/15/2016 13:30 [facility] Comment:[facility]formed [facility] [place], [place] Blood specimen (specimen) BLOOD SPECIMEN / Unknown 07/15/2016 13:11 EST 07/15/2016 13:27 EST us Callum Vicente MD MPH PACKAGES & DNA PROBE MURPHYE CHANTEL Final Result [facility] [address] [place] [address] * (ABNORMAL) BASIC METABOLIC PANEL (07/15/2016 13:11 EST) Sodium 138 136 - 145 mEq/L 07/15/2016 14:01 [facility] Potassium 4.2 3.5 - 5.0 mEq/L 07/15/2016 14:01 [facility] Chloride 101 96 - 110 mEq/L 07/15/2016 14:01 [facility] CO2 27 22 - 32 mEq/L 07/15/2016 14:01 [facility] Comment:Note new reference r masoud 03/23/16 BUN 9(L) 10 - 26 mg/dl 07/15/2016 14:01 [facility] Creatinine 0.40(L) 0.52 - 1.04 mg/dl 07/15/2016 14:01 [facility] GFR, Calculated 139 >60 ml/min/1.7 3m2 07/15/2016 14:01 [facility] Comment: eGFR calculated using CKD-EPI equation for non Americans. Multiply eGFR by 1.16 for Americans. Calcium 9.2 8.5 - 10.5 mg/dl 07/15/2016 14:01 [facility] Calculated Calcium 9.4 8.5 - 10.5 mg/dl 07/15/2016 14:01 [facility] Comment: Note new formula for calculation in use 03/10/2016 Glucose, Serum 246(H) 70 - 100 mg/dl 07/15/2016 14:01 [facility] Fasting? Unknown 07/15/2016 13:27 [facility] Comment:Performed at [place], [place] Blood specimen (specimen) BLOOD SPECIMEN / Unknown 07/15/2016 13:11 EST 07/15/2016 13:27 EST Callum Vicente MD MPH CHEMISTRY & BLOOD GAS ORD ERABLES Final Result [facility] [address] [place] [address] * (ABNORMAL) POCT GLUCOSE (07/15/2016 12:28 EST) Glucose, POC 221(A) 70 - 100 mg/dL [facility] Blood specimen (specimen) 07/15/2016 12:28 EST us Callum Vicente MD MPH POINT OF CARE TEST ORDERA BLES Final Result Performing Organization Address City/[facility]/ZIP Co de Phone Number [facility] [place] [address] * (ABNORMAL) URINALYSIS MICROSCOPIC ONLY (07/15/2016 12:06 EST) WBC, UA less than 1 0 - 5 /HPF 07/15/2016 12:43 [facility] RBC, UA 1 to 5 0 - 5 /HPF 07/15/2016 12:43 [facility] Squam Epithel, UA Many(A) None seen /HPF 07/15/2016 12:43 [facility] Renal Epithel, UA None seen None seen /HPF 07/15/2016 12:43 [facility] Bacteria, UA Rare(A) None seen /HPF 07/15/2016 12:43 [facility] Crystals, UA None seen /HPF 07/15/2016 12:43 [facility] Hyaline Casts, UA None seen /LPF 07/15/2016 12:43 [facility] UA Comment Microscopic results 07/15/2016 12:13 [facility] Comment: are unreliable on urines unrefrig >2hrs or refrig >8hrs. Mucus, UA Present 07/15/2016 12:43 [facility] Comment:Performed at [facility] [place], [place] Urine specimen (specimen) URINE / Unknown 07/15/2016 12:06 EST 07/15/2016 12:17 EST Moy Marquez MD URINALYSIS ORDERABLES Penny l Result Performing Organization Address City/[facility] Co de Phone Number [facility] [address] [place] [address] * TEST, URINE (07/15/2016 12:06 EST) Result- Test, Ur Neg Neg 07/15/2016 12:40 [facility] Comment: NOTE: False negative results may occur in women who are beyond 5-8 weeks gestation. Diagnosis of should be based on a correlation of test results with typical clinical signs and symptoms. [place] Urine specimen (specimen) URINE / Unknown 07/15/2016 12:06 EST 07/15/2016 12:16 EST Moy Marquez MD URINALYSIS ORDERABLES Penny l Result [facility] [address] [place] [address] * (ABNORMAL) POCT URINE DIPSTICK (07/15/2016 12:06 EST) Color YELLOW 07/15/2016 12:11 [facility] Clarity, UA Clear 07/15/2016 12:11 [facility] Glucose 2+(A) Neg 07/15/2016 12:11 [facility] Bilirubin Neg Neg 07/15/2016 12:11 [facility] Ketones 1+(A) Neg 07/15/2016 12:11 [facility] Specific [place] 1.015 1.001 - 1.035 07/15/2016 12:11 [facility] Blood 3+(A) Neg 07/15/2016 12:11 [facility] pH 5.5 4.6 - 8.0 07/15/2016 12:11 [facility] Protein Trace(A) Neg 07/15/2016 12:11 [facility] Urobilinogen 0.2 0.2 - 1.0 E.U./dl 07/15/2016 12:11 [facility] Nitrite Neg Neg 07/15/2016 12:11 [facility] Leuk Esterase Trace(A) Neg 07/15/2016 12:11 [facility] machine puller over ID [id number] 07/15/2016 12:11 [facility] Comment:Test performed at [facility] Urine specimen (specimen) URINE / Unknown 07/15/2016 12:06 EST 07/15/2016 12:11 EST Moy Marquez MD POINT OF CARE TEST ORDERAB LES Final Result Performing Organization Address City/State/[facility] Co de Phone Number [facility] [address] [place] [address] documented in this encounter Visit Diagnoses Diagnosis Perianal abscess- Primary Abscess of anal and rectal regions Nausea and vomiting, intractability of vomiting not specified, unspecified vomiting type Type 2 diabetes mellitus with complication, unspecified jail insulin use status documented in this encounter [...] documented as of this encounter Care Teams Optometric Assistant Relationship Specialty Start Date End Date None, Provider PCP - General 03/08/16 08/21/18 documented as of this encounter
--- OUTSIDE RECORDS SUMMARY | 2024-05-31 07:36 | XMS_ITS | Encounter Summary ---
Author Organization [facility] Address [address] [place] [address] Care Team Providers Care Private Wealth Advisor Name Role Phone None, Provider Primary [...] 20:10 EDT - 09/28/2016 21:29 EDT Emergency [facility] Emergency Department - Main [address] [address] Benita Sol MD [address] [place] [address], [address] [place] [phone] Emergency, MD Ekaterina Acute bilateral low back [...] complications-E11.9[ICD-10-CM] F17.210 Nicotine dependence, cigarettes, uncomplicated-F17.210[ICD-10-CM] Z79.84 terminal makeup operator (current) use of oral hypoglycemic drugs-Z79.84[ICD-10-CM] Z88.6 Allergy status to analgesic agent status-Z88.6[ICD-10-CM] documented in this encounter Discharge Instructions * Discharge Instructions* Benita Sol MD - 09/28/2016 21:09 EDT Take Flexeril, one tablet before bed for muscle spasms/back pain as needed. * Attachments The following attachments cannot be sent through Care Everywhere. * LUMBAR PAIN: ACUTE: EXERCISES ([place]EN[place]) documented in this encounter Medications at Time [...] back) documented in this encounter Care Teams Private Wealth Advisor Relationship Specialty Start Date End Date None, Provider PCP - General 03/08/16 08/21/18 documented as of this encounter
--- OUTSIDE RECORDS SUMMARY | 2024-05-31 07:36 | XMS_ITS | Encounter Summary ---
Author Organization [facility] Address [address] [place] [address] Care Team Providers Care Senior Military Analyst Name Role Phone Benita Shafer WET MIX OPERATOR Primary Care Provider [phone] Reason for Visit * Reason Comments Shingles States that she thin ks she is having a shingles flare on face and head, states had outbreak 3 weeks ago in same areas Encounter Details Date Type Department Care Team (Late st Contact Info) Description 08/22/2018 9:08 EDT - 08/22/2018 12:20 EDT Emergency [facility] Emergency Department - [address] [id number] Doris Moreno MD [address] [facility], [address] [place] [address] Emergency, MD Ekaterina Trigeminal herpes [...] Type 2 diabetes mellitus without complications-E11.9[ICD-10-CM] Z79.84 long-term (current) use of oral hypoglycemic drugs-Z79.84[ICD-10-CM] Z79.4 long-term (current) use of insulin-Z79.4[ICD-10-CM] F17.210 Nicotine dependence, [...] is very important. Please follow-up with your hull outfit supervisor as previously scheduled. Please contact your primary [...] be sent through Care Everywhere. * SHINGLES ([place]STR[place]IAN) * NEUROPATHIC PAIN ([place]STR[place]IAN) documented in this encounter Medications at Time [...] Value Status Glucose, Fingerstick 234 (*) Final Crime Prevention Worker ID [id number] Final POCT GLUCOSE Procedures Procedures ED course/Medical [...] 70 - 100 mg/dl 08/22/2018 12:06 EDT [facility] Crime Prevention Worker ID [id number] 08/22/2018 12:06 EDT [facility] Comment:[facility] B[facility]OD SPECIM[facility] / Unknown 08/22/2018 12:04 EDT 08/22/2018 12:06 EDT us Provider Unknown CHEMISTRY & BLOOD GAS ORDERA BLES Final Result [facility] [address] [place] [address] documented in this encounter Visit Diagnoses Diagnosis [...] 08/22/2018 documented in this encounter Care Teams Senior Military Analyst Relationship Specialty Start Date End Date Benita Shafer NP PCP - General 08/22/18 06/17/19 documented as of this encounter
--- OUTSIDE RECORDS SUMMARY | 2024-05-31 07:36 | XMS_ITS | Encounter Summary ---
Author Organization [facility] Address [address] [place] [address] Care Team Providers Care Academic Advisement Director Name Role Phone Benita Shafer PATIENT REPRESENTATIVE Primary Care Provider [phone] Reason for Visit * Reason Onset Date Comments Follow-up 09/06/2018 Encounter Details Date Type Department Care Team (Late st Contact Info) Description 09/06/2018 Telephone [facility] Urgent Care - [address] [address] Valencia Davila RN [address] [address] Follow-up Social History Tobacco Use Types Packs/Day [...] to follow up with her Opthalmologist in [facility], Per Dr Blanco we would like to start patient on eye drops and she will see Opthalmology tomorrow, attempted to reach patient on both numbers listed, left generic voicemail on patientscell, as we had discussed I would be calling her with any further information, requested she returnmy call [facility]. Left message on Opthalmology voicemail Dr Srikanth Cruz, Requesting to ask patient to call this clinic for further instructions if they here from her documented in this encounter Plan of Treatment Not on file documented as of this encounter Visit Diagnoses Not on filedocumented in this encounter Care Teams Academic Advisement Director Relationship Specialty Start Date End Date Benita Shafer NP PCP - General 08/22/18 06/17/19 documented as of this encounter
--- OUTSIDE RECORDS SUMMARY | 2024-05-31 07:36 | XMS_ITS | Encounter Summary ---
Author Organization [facility] Address [address] [place] [address] Care Team Providers Care Bacteriology Research Assistant Name Role Phone None, Provider Primary [...] Info) Description 07/30/2016 12:30 EST Office Visit [facility] - [address] [address] Broderick Schwartz MD [address] [facility], [address] [place] [address] Social History Tobacco Use Types [...] Psychiatric: NL Endocrine: Diabetes Hematologic: NL Immunologic: Human Anatomy Teacher: Exposures: Other: Attestation: Allergies include: Citalopram and [...] Schwartz, while he is performing the service. Borderick Schwartz MD documented in this encounter Plan [...] Normal Normal Vessels Normal Normal Care Teams Bacteriology Research Assistant Relationship Specialty Start Date End Date None, Provider PCP - General 03/08/16 08/21/18 documented as of this encounter
--- OUTSIDE RECORDS SUMMARY | 2024-05-31 07:36 | XMS_ITS | Encounter Summary ---
Author Organization [facility] Address [address] [place] [address] Care Team Providers Care Dinkey Operator Name Role Phone Benita Shafer GUSTAVO Primary Care Provider [phone] Encounter Details Date Type Department Care Team (Late st Contact Info) Description 10/26/2018 8:34 EDT - 10/26/2018 11:35 EDT Hospital Encounter [facility] [address] [place] [address] Ana Coronado MD 111 [facility], [address] [place] [address] Discharge Disposition: Auto Discharge Social [...] skin at bedtime. 0 lancets One Touch [employer] or other brand compatible with lancing device [...]
--- OUTSIDE RECORDS SUMMARY | 2024-05-31 07:36 | XMS_ITS | Encounter Summary ---
Author Organization [facility] Address [address] [place] [address] Care Team Providers Care Owner Operator Name Role Phone Benita Shafer NP Primary Care Provider Encounter Details Date Type Department Care Team (Late st Contact Info) Description 10/26/2018 Orders Only [facility] OBGYN Services - [place] [address] [place], [place] [address] Charu Flynn MD 111 [facility], [address] [place] [address] Social History Tobacco Use Types [...] filedocumented in this encounter Care Teams Owner Operator Relationship Specialty Start Date End Date Benita Shafer NP PCP - General 08/22/18 06/17/19 documented as of this encounter
--- OUTSIDE RECORDS SUMMARY | 2024-05-31 07:36 | XMS_ITS | Encounter Summary ---
Author Organization [facility] Address [address] [place] [address] Care Team Providers Care Plan Checker Name Role Phone None, Provider Primary Care Provider Unavailabl e Reason for Visit * Reason Comments Eye Problem woke yesterday am wi th right eye lid swelling, worsening today, now with blurred vision. denies drainage. Encounter Details Date Type Department Care Team (Late st Contact Info) Description 07/28/2016 20:50 EST - 07/28/2016 22:[address] [facility] Emergency Department - Main [address] [address] Fran Barbosa MD [address] [place] [address], [address] [place] [address] Emergency, MD Ekaterina Corneal abrasion, [...] F17.210 Nicotine dependence, cigarettes, uncomplicated-F17.210[ICD-10-CM] Z79.84 terminal manager (current) use of oral hypoglycemic drugs-Z79.84[ICD-10-CM] [...] Notes * Ann Martínez RN - 07/28/2016 5420 EST Ordered for discharge. Aftercare instructions, follow [...] RN) documented in this encounter Care Teams Plan Checker Relationship Specialty Start Date End Date None, Provider PCP - General 03/08/16 08/21/18 documented as of this encounter
--- OUTSIDE RECORDS SUMMARY | 2024-05-31 07:36 | XMS_ITS | Encounter Summary ---
Author Organization [facility] Address [address] [place] [address] Care Team Providers Care Blast Furnace Blower Name Role Phone Benita Shafer GUSTAVO Primary Care Provider [phone] Encounter Details Date Type Department Care Team (Late st Contact Info) Description 10/24/2018 Phlebotomy Only [address] [address] Armhole Feller Handstitching Machine, Outpatient Complication of in first trimester (Primary [...] Preg 1,286(H) <5 mIU/ml 10/24/2018 15:40 EDT [facility] Comment: Reference Range: Negative = <5 Indeterminate = 5-25 recommend repeat in 48 hours. Positive = >25 The results of this assay can be falsely lowered due to the consumption of Biotin. Blood specimen (specimen) BLOOD SPECIMEN / Unknown 10/24/2018 14:42 EDT 10/24/2018 14:54 EDT us Ana Coronado MD CHEMISTRY & BLOOD GAS CLEMENTE GOLDEN Final Result [facility] [address] [place] [address] documented in this encounter Visit Diagnoses Diagnosis Complication of in first trimester- Primary documented in this encounter Care Teams Blast Furnace Blower Relationship Specialty Start Date End Date Benita Shafer NP PCP - General 08/22/18 06/17/19 documented as of this encounter
--- OUTSIDE RECORDS SUMMARY | 2024-05-31 07:36 | XMS_ITS | Encounter Summary ---
Author Organization [facility] Address [address] [place] [address] Care Team Providers Care Bonbon Cream Warmer Name Role Phone None, Provider Primary Care Provider Unavailabl e Reason for Visit * Reason Onset Date Comments Follow-up 07/20/2016 Results 07/20/2016 Encounter Details Date Type Department Care Team (Late st Contact Info) Description 07/20/2016 Telephone [facility] Urgent Care - [address] [phone] Moy Marquez MD [address] [place] [phone] Follow-up; Results Social History Tobacco Use [...] Encounter - Moy Marquez MD - 07/24/2016 5795 EST Called and spoke to patient follow up with recent visit. She notes that cyst has improved. I discussed that her hemoglobin A1c is quite elevated at 11.2, indicating that she does have poorlycontrolled diabetes. We had prescribed metformin for her to resume- she plans to hand picker today. She will likely need further agents. She does have a follow-up appointment in three days with the [facility] to establish care. I strongly encouraged [...] on filedocumented in this encounter Care Teams Bonbon Cream Warmer Relationship Specialty Start Date End Date None, Provider PCP - General 03/08/16 08/21/18 documented as of this encounter
--- OUTSIDE RECORDS SUMMARY | 2024-05-31 07:36 | XMS_ITS | Encounter Summary ---
Author Organization [facility] Address [address] [place] [address] Care Team Providers Care Chain Builder Name Role Phone None, Provider Primary Care Provider Unavailabl e Reason for Visit * Reason Onset Date Comments Eye Problem 07/29/2016 Encounter Details Date Type Department Care Team (Late st Contact Info) Description 07/29/2016 Telephone [facility] Ophthalmology - [address] [phone] Unknown, Provider, Eye Problem Social History Tobacco [...] he will see pt tomorrow. Catherine Alonzo ([facility]) calling pt to schedule. * Telephone Encounter [...] to you in the next two hours? [phone], can leavea message (VERIFY THE PHONE NUMBERS REGARDLESS OF WHAT IS IN THE SYSTEM.) (Please remember to ask the MD what he/she needs from the paper chart.) * Telephone Encounter - Catherine Donald - 07/29/2016 9038 EST Pt was seen at ed. documented in this encounter Plan of Treatment Not on file documented as of this encounter Visit Diagnoses Not on filedocumented in this encounter Care Teams Chain Builder Relationship Specialty Start Date End Date None, Provider PCP - General 03/08/16 08/21/18 documented as of this encounter
--- OUTSIDE RECORDS SUMMARY | 2024-05-31 07:36 | XMS_ITS | Encounter Summary ---
Author Organization [facility] Address [address] [place] [address] Care Team Providers Care Lead Programmer Analyst Name Role Phone Nimisha Clifton POWER PLANT SUPERINTENDENT Primary Care Provider [phone] Reason for Visit * Reason Onset Date Comments No Show 10/03/2015 Encounter Details Date Type Department Care Team (Late st Contact Info) Description 10/03/2015 Telephone [facility] Adult Primary Care - [place] [address] [place], [place] [address] Nimisha Clifton, POWER PLANT SUPERINTENDENT 1 [employer] Level [address] [place] [address] No Show Social History Tobacco [...] filedocumented in this encounter Care Teams Lead Programmer Analyst Relationship Specialty Start Date End Date Nimisha Clifton NP 1 [facility] 1 [place] [phone] PCP - General 08/28/15 03/07/16 documented as of this encounter
--- OUTSIDE RECORDS SUMMARY | 2024-05-31 07:36 | XMS_ITS | Encounter Summary ---
Author Organization [facility] Address [address] [place] [address] Care Team Providers Care Hand Deicer Element Winder Name Role Phone Benita Shafer DIRECTOR OF VENDOR MANAGEMENT Primary Care Provider [phone] Encounter Details Date Type Department Care Team (Late st Contact Info) Description 10/29/2018 Phlebotomy Only [address] [address] Boiler Coverer Helper, Outpatient 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 (Primary Dx) [...] Preg 2,338(H) <5 mIU/ml 10/29/2018 10:12 EDT [facility] Comment: Reference Range: Negative = <5 Indeterminate = 5-25 recommend repeat in 48 hours. Positive = >25 The results of this assay can be falsely lowered due to the consumption of Biotin. Blood specimen (specimen) BLOOD SPECIMEN / Unknown 10/29/2018 9:20 EDT 10/29/2018 9:38 EDT us Charu Flynn MD CHEMISTRY & BLOOD GAS OR DERABLES Final Result [facility] [address] [place] [address] documented in this encounter Visit Diagnoses Diagnosis 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 - Primary documented in this encounter Care Teams Hand Deicer Element Winder Relationship Specialty Start Date End Date Benita Shafer NP PCP - General 08/22/18 06/17/19 documented as of this encounter
--- OUTSIDE RECORDS SUMMARY | 2024-05-31 07:36 | XMS_ITS | Encounter Summary ---
Author Organization [facility] Address [address] [place] [address] Care Team Providers Care Patternmaker Wood Name Role Phone Benita Shafer GUSTAVO Primary Care Provider [phone] Reason for Visit * Reason Comments Eye Problem Left eye lid pain an d swelling, onset Tuesday fiordaliza. recent shingle in that eye Encounter Details Date Type Department Care Team (Latest Contact Info) Description 09/06/2018 8:37 EDT - 09/06/2018 10:13 EDT Hospital Encounter [facility] Urgent Care - [address] [address] Fran Blanco MD 0 [place] [phone] Unknown, Provider, Hordeolum externum of left upper [...] Dr Srik[facility] Levine [facility] to request patient have follow up [...] beginning of August. She was seen in [place] and had follow-up with the adjunct trainer, Dr. Jerad Cruz. She reports that her symptoms completely resolved with the initial treatment. However around August 22 she had a rec urrence of the symptoms and was seen in the [facility] ED. She was thought to have [...] in past 80u, Followed by endocrine in [facility]. Stopped few yrs ago until this past month. ??? Anxiety and depression 05/12/2010 Onset teen yrs. Treated with citalopram in approx 2012 - had SI, treated at [facility]. Marijuana prn to help with stress/anxiety sx. [...] . Condition at departure from the [facility] : Stable MDM 09/06/2018 11:31 * Valencia Davila RN - 09/06/2018 0906 EDT Verified name and Patient reports 3 weeks ago she had shingles in her left eye and was treated by an Eye MD in [facility], she has completed her treatment, all [...] 09/06/2018 documented in this encounter Care Teams Patternmaker Wood Relationship Specialty Start Date End Date Benita Shafer NP PCP - General 08/22/18 06/17/19 documented as of this encounter
--- OUTSIDE RECORDS SUMMARY | 2024-05-31 07:36 | XMS_ITS | Encounter Summary ---
Author Organization [facility] Address [address] [place] [address] Care Team Providers Care Director Data Analytics Name Role Phone Benita Shafer GUSTAVO Primary Care Provider [phone] Reason for Referral * CLINICAL APPEALS SPECIALIST (Routine) - New Request Specialty Diagnoses / Procedures Referred By Kit goode Referred To Contact Diagnoses Missed menses Procedures HEALTH PROGRAM DIRECTOR US OB FIRST TRIMESTER TRANSVAGINAL Nohemy Sales MD Phone: tel: fax: Referral ID Status Reason Start Date Expiration Date V isits Requested Visits Authorized [id number] New Request 10/19/2018 1 1 Reason for Visit * Reason Onset Date Comments 10/19/2018 Encounter Details Date Type Department Care Team (Late st Contact Info) Description 10/19/2018 Telephone [facility] Obstetrics & Midwifery - [address] [id number] Mary Regalado RN Social History Tobacco Use [...] .Initial Appt Screening Form Best Contact Number: [phone] [facility] Provider: HUGO for Type 2 diabetes [...] h/o 5 miscarriages and traumatic experience with [facility] OB and would like to come [...] scribed to patient'spharmacy. Scheduled for first trimester HEALTH PROGRAM DIRECTOR US for October 24 at 1:45pm- she [...] Procedure Name Priority Date/Time Associated Diagnosis Comments HEALTH PROGRAM DIRECTOR US OB FIRST TRIMESTER TRANSVAGINAL Routine 10/24/2018 13:58 EDT Missed menses documented in this encounter Results * HEALTH PROGRAM DIRECTOR US OB FIRST TRIMESTER TRANSVAGINAL (10/24/2018 13:58 [...] Visualized. Embryo: Not visualized. Impression OB transvaginal [id number] 1. Small gestational sac with a yolk [...] Visualized. Embryo: Not visualized. Impression OB transvaginal [id number] 1. Small gestational sac with a yolk [...] OF SERVICE: 10/24/2018 us Nohemy Sales MD [facility] HEALTH PROGRAM DIRECTOR ORDERABLES Final Result documented in this encounter Visit Diagnoses Diagnosis Missed menses- Primary Absence of menstruation documented in this encounter Care Teams Director Data Analytics Relationship Specialty Start Date End Date Benita Shafer NP PCP - General 08/22/18 06/17/19 documented as of this encounter
--- OUTSIDE RECORDS SUMMARY | 2024-05-31 07:36 | XMS_ITS | Encounter Summary ---
Author Organization [facility] Address [address] [place] [address] Care Team Providers Care Search Director Name Role Phone Benita Shafer GUSTAVO Primary Care Provider [phone] Encounter Details Date Type Department Care Team (Late st Contact Info) Description 10/26/2018 Phlebotomy Only [address] [address] Picking Machine Operator, Outpatient Complication of in first trimester [...] Preg 1,531(H) <5 mIU/ml 10/26/2018 9:52 EDT [facility] Comment: Reference Range: Negative = <5 Indeterminate = 5-25 recommend repeat in 48 hours. Positive = >25 The results of this assay can be falsely lowered due to the consumption of Biotin. Blood specimen (specimen) BLOOD SPECIMEN / Unknown 10/26/2018 8:48 EDT 10/26/2018 9:00 EDT us Ana Coronado MD CHEMISTRY & BLOOD GAS CLEMENTE GOLDEN Final Result [facility] [address] [place] [address] documented in this encounter Visit Diagnoses Diagnosis Complication of in first trimester- Primary documented in this encounter Care Teams Search Director Relationship Specialty Start Date End Date Benita Shafer NP PCP - General 08/22/18 06/17/19 documented as of this encounter
--- OUTSIDE RECORDS SUMMARY | 2024-05-31 07:36 | XMS_ITS | Encounter Summary ---
Author Organization [facility] Address [address] [place] [address] Care Team Providers Care Certified Court/Medical Interpreter Name Role Phone Benita Shafer GUSTAVO Primary Care Provider [phone] Encounter Details Date Type Department Care Team (Late st Contact Info) Description 10/24/2018 14:34 EDT - 10/24/2018 23:59 EDT Hospital Encounter [facility] [address] [place] [address] Ana Coronado MD [address] [facility], [address] [place] [address] Discharge Disposition: Auto Discharge Social [...] skin at bedtime. 0 lancets One Touch [employer] or other brand compatible with lancing device [...] filedocumented in this encounter Care Teams Certified Court/Medical Interpreter Relationship Specialty Start Date End Date Benita Shafer NP PCP - General 08/22/18 06/17/19 documented as of this encounter
--- OUTSIDE RECORDS SUMMARY | 2024-05-31 07:36 | XMS_ITS | Encounter Summary ---
Author Organization [facility] Address [address] [place] [address] Care Team Providers Care Upper Trimmer Name Role Phone Benita Shafer GUSTAVO Primary Care Provider [phone] Encounter Details Date Type Department Care Team (Late st Contact Info) Description 10/26/2018 11:36 EDT - 10/26/2018 23:59 EDT Hospital Encounter [facility] [address] [place] [address] Charu Flynn MD 111 [facility], [address] [place] [address] Discharge Disposition: Home or Self [...] Self Long Term documented in this encounter Plan of Treatment Not on file documented as of this encounter Visit Diagnoses Not on filedocumented in this encounter Care Teams Upper Trimmer Relationship Specialty Start Date End Date Benita Shafer NP PCP - General 08/22/18 06/17/19 documented as of this encounter
--- OUTSIDE RECORDS SUMMARY | 2024-05-31 07:36 | XMS_ITS | Encounter Summary ---
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 Type 2 diabetes mellitus without complication, with long-term current use of insulin ([facility]) Abnormal human chorionic gonadotropin (hCG) Charu Flynn MD Phone: tel: fax: [facility] Obstetrics & Midwifery - [address] [address] Phone: tel: fax: Referral ID Status Reason Start Date Expiration Date V isits Requested Visits Authorized [id number] Closed Specialty Services Required 10/26/2018 1 1 [...] complication, with long-term current use of insulin ([facility]) Abnormal human chorionic gonadotropin (hCG) 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 She will go tothe lab now [...] loss, as well as lab hours and SURFACER triage phone number. Method: Handout and Verbal [...] HCG, Preg 2,338(H) <5 mIU/ml 10/29/2018 10:12 [facility] Comment: Reference Range: Negative = <5 Indeterminate = 5-25 recommend repeat in 48 hours. Positive = >25 The results of this assay can be falsely lowered due to the consumption of Biotin. Blood specimen (specimen) BLOOD SPECIMEN / Unknown 10/29/2018 9:20 EDT 10/29/2018 9:38 EDT us Charu Flynn MD CHEMISTRY & BLOOD GAS OR DERABLES Final Result [facility] [address] [place] [address] * COMPLETE BLOOD COUNT (10/26/2018 12:28 EDT) Pathologist [facility] WBC 11.89 4.0 - 12.4 K/cmm 10/26/2018 13:06 [facility] RBC 4.82 3.86 - 5.04 M/cmm 10/26/2018 13:06 [facility] Hemoglobin 15.0 11.6 - 15.2 gm/dl 10/26/2018 13:06 [facility] HCT 42.5 34.9 - 44.4 % 10/26/2018 13:06 [facility] MCV 88 81 - 98 fl 10/26/2018 13:06 [facility] MCH 31.1 26.7 - [...] 9.5 - 12.7 fl 10/26/2018 13:06 EDT [facility] Blood specimen (specimen) BLOOD SPECIMEN / Unknown 10/26/2018 12:28 EDT 10/26/2018 12:42 EDT Charu Flynn MD HEMATOLOGY & PF4 ORDERAB LES Final Result Performing Organization Address [facility]/ZIP Co de Phone Number [facility] [address] [place] [address] * (ABNORMAL) AST (10/26/2018 12:28 EDT) AST 14(L) 15 - 46 U/L 10/26/2018 13:09 EDT [facility] Blood specimen (specimen) BLOOD SPECIMEN / Unknown 10/26/2018 12:28 EDT 10/26/2018 12:42 EDT us Charu Flynn MD CHEMISTRY & BLOOD GAS OR DERABLES Final Result Performing Organization Address [facility]/ZIP Co de Phone Number [facility] [address] [place] [address] * ALT (10/26/2018 12:28 EDT) ALT 22 <53 U/L 10/26/2018 13:09 EDT [facility] Blood specimen (specimen) BLOOD SPECIMEN / Unknown 10/26/2018 12:28 EDT 10/26/2018 12:42 EDT us Charu Flynn MD CHEMISTRY & BLOOD GAS OR DERABLES Final Result Performing Organization Address [facility] Co de Phone Number [facility] [address] [place] [address] * (ABNORMAL) CREATININE (10/26/2018 12:28 EDT) Creatinine 0.44(L) 0.52 - 1.04 mg/dl 10/26/2018 13:09 EDT [facility] GFR, Calculated 133 >60 ml/min/1.7 3m2 10/26/2018 13:09 EDT [facility] Comment: eGFR calculated using CKD-EPI equation for non Americans. Multiply eGFR by 1.16 for Americans. Blood specimen (specimen) BLOOD SPECIMEN / Unknown 10/26/2018 12:28 EDT 10/26/2018 12:42 EDT Charu Flynn MD CHEMISTRY & BLOOD GAS OR DERABLES Final Result Performing Organization Address City/[facility]/ZIP Co de Phone Number [facility] [address] [place] [address] * BUN (10/26/2018 12:28 EDT) BUN 11 10 - 26 mg/dl 10/26/2018 13:09 EDT [facility] Blood specimen (specimen) BLOOD SPECIMEN / Unknown 10/26/2018 12:28 EDT 10/26/2018 12:42 EDT Charu Flynn MD CHEMISTRY & BLOOD GAS OR DERABLES Final Result Performing Organization Address City/[facility] Co de Phone Number [facility] [address] [place] [address] documented in this encounter Visit Diagnoses Diagnosis 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
--- OUTSIDE RECORDS SUMMARY | 2024-05-31 07:36 | XMS_ITS | Encounter Summary ---
Author Organization [facility] Address [address] [place] [address] Care Team Providers Care Solar Resource Assessor Name Role Phone Benita Shafer GUSTAVO Primary Care Provider [phone] Encounter Details Date Type Department Care Team (Late st Contact Info) Description 10/29/2018 9:12 EDT - 10/29/2018 23:59 EDT Hospital Encounter [facility] [address] [place] [address] Charu Flynn MD 111 [facility], [address] [place] [address] Discharge Disposition: Home or Self [...] or Self Mcfp documented in this encounter Plan of Treatment Not on file documented as of this encounter Visit Diagnoses Not on filedocumented in this encounter Care Teams Solar Resource Assessor Relationship Specialty Start Date End Date Benita Shafer NP PCP - General 08/22/18 06/17/19 documented as of this encounter
--- OUTSIDE RECORDS SUMMARY | 2024-05-31 07:36 | XMS_ITS | Encounter Summary ---
Author Organization [facility] Address [address] [place] [address] Care Team Providers Care Loading Machine Tool Setter Name Role Phone None, Provider Primary Care Provider Unavailabl e Reason for Visit * Reason Comments Cough Encounter Details Date Type Department Care Team (Latest Contact Info) Description 03/08/2016 14:28 EDT - 03/08/2016 16:55 EDT Hospital Encounter [facility] - [address] [address] Scar Marquez MD [address] [place] [address] [phone] Unknown, Provider, Leukocytosis, unspecified type (Primary Dx); [...] - 03/08/2016 1654 EDT Report given to [place] rescue patient transported to [facility] ED for further evaluation IV infusing. [...] the legs or lungs. She has used [id number] Robitussin and Tylenol with little improvement. She [...] She did take a plane ride to [place] in January of this year. She has [...] 09/04/201502/18, 08/19. Followed by Dr. López/Affili[facility] in [facility] ??? Family history of rheumatoid arthritis 09/04/2015 Mother, pt with chronic back pain. Told arthritis in spine in teen yrs. ??? Type 2 diabetes mellitus 09/03/2015 Dx approx age 25. Controlled with lifestyle behaviors, wt loss. Had taken lantus in past 80u, Followed by endocrine in [facility]. Stopped few yrs ago until this past month. ??? Anxiety and depression 05/12/2010 Onset teen yrs. Treated with citalopram in approx 2012 - had SI, treated at [facility]. Marijuana prn to help with stress/anxiety sx. [...] Neg Neg Ketones Trace (A) Neg Specific [place] >=1.030 1.001 - 1.035 Blood 1+ (A) Neg pH 5.5 4.6 - 8.0 Protein Trace (A) Neg Urobilinogen 0.2 0.2 - 1.0 E.U./dl Nitrite Neg Neg Leuk Esterase Neg Neg Tech ID [id number] Radiology orders: None Imaging Results CHEST PA [...] preliminary report dictated by Dr. Madhuri Wolf, residential living assistant, and has not been finalized by an [...] preliminary report dictated by Dr. Madhuri Wolf, residential living assistant, and has not been finalized by an [...] preliminary report dictated by Dr. Madhuri Wolf, residential living assistant, and has not been finalized by an [...] other diagnoses. She is transferred to the [facility] emergency department now in stable condition. [...] of further medications. Upon departure from [facility], the patient's pain was 9 on a zero to ten scale. Condition at departure from the [facility] : Stable MDM Signed: [...] Shea RN - 03/08/2016 1433 EDT Bed: [facility] Expected date: Expected time: [...] EDT) 03/10/2016 9:47 EDT us Scan [address] [employer] PROCEDURE/MINOR SURGICAL OR DERABLES Final Result * ED/URGENT CARE ADD-ON (03/09/2016 13:00 EDT) Tests to be added URINE TEST 03/09/2016 12:58 EDT [facility] Number for problems [id number] (URGENT CARE) 03/09/2016 12:58 EDT [facility] Comment:Performed at [facility], [place], [place] TOPOGRAPHY UNKNOWN / Unknown 03/09/2016 13:00 EDT 03/09/2016 13:07 EDT us Scar Marquez MD HEMATOLOGY & PF4 ORDERABLE S Final Result [facility] [address] [place] [address] * TEST, URINE (03/08/2016 16:25 EDT) Result- Test, Ur Neg Neg 03/09/2016 13:15 EDT [facility] Comment: NOTE: False negative results may occur in women who are beyond 5-8 weeks gestation. Diagnosis of should be based on a correlation of test results with typical clinical signs and symptoms. Performed at [facility], [place], [place] URINE / Unknown 03/08/2016 1 6:25 EDT 03/09/2016 13:06 EDT Scar Marquez MD URINALYSIS ORDERABLES Penny islas Result [facility] [address] [place] [address] * (ABNORMAL) URINE MICROSCOPIC ONLY (03/08/2016 16:25 EDT) WBC, UA less than 1 0 - 5 /HPF 03/08/2016 17:24 EDT [facility] RBC, UA less than 1 0 - 5 /HPF 03/08/2016 17:24 [facility] Squam Epithel, UA Many(A) None seen /HPF 03/08/2016 17:24 [facility] Renal Epithel, UA None seen None seen /HPF 03/08/2016 17:24 [facility] Bacteria, UA None seen None seen /HPF 03/08/2016 17:24 [facility] Crystals, UA None seen /HPF 03/08/2016 17:24 [facility] Hyaline Casts, UA None seen /LPF 03/08/2016 17:24 [facility] UA Comment Microscopic results 03/08/2016 16:31 [facility] Comment: are unreliable on urines unrefrig >2hrs or refrig >8hrs. Mucus, UA Present 03/08/2016 17:24 [facility] Comment:Performed at [facility] [place], [place] Urine specimen (specimen) URINE / Unknown 03/08/2016 16:25 EDT 03/08/2016 16:57 EDT Scar Marquez MD URINALYSIS ORDERABLES Penny l Result [facility] [address] [place] [address] * (ABNORMAL) POCT URINE DIPSTICK (03/08/2016 16:25 EDT) Color DARK YELLOW 03/08/2016 16:27 EDT [facility] Clarity, UA Clear 03/08/2016 16:27 EDT [facility] Glucose 2+(A) Neg 03/08/2016 16:27 EDT [facility] Bilirubin Neg Neg 03/08/2016 16:27 T [facility] Ketones Trace(A) Neg 03/08/2016 16:27 EDT [facility] Specific [place] >=1.030 1.001 - 1.035 03/08/2016 16:27 EDT [facility] Blood 1+(A) Neg 03/08/2016 16:27 EDT [facility] pH 5.5 4.6 - 8.0 03/08/2016 16:27 T [facility] Protein Trace(A) Neg 03/08/2016 16:27 EDT [facility] Urobilinogen 0.2 0.2 - 1.0 E.U./dl 03/08/2016 16:27 EDT [facility] Nitrite Neg Neg 03/08/2016 16:27 T [facility] Leuk Esterase Neg Neg 03/08/2016 16:27 EDT [facility] tuckpointer ID [id number] 03/08/2016 16:27 T [facility] Comment:Test performed at [facility] in [facility] Urine specimen (specimen) URINE / Unknown 03/08/2016 16:25 EDT 03/08/2016 16:27 EDT Scar Marquez MD POINT OF CARE TEST ORDERAB LES Final Result [facility] [address] [place] [address] * EKG 12-LEAD (03/08/2016 16:14 EDT) 03/08/2016 16:1 4 EDT Narrative [facility] - 03/08/2016 16:24 EDT ? PC Site ? Test Date: ?2016-03-08 Pat Name: ? CRISTY TALBOT ? [facility] ? Room: ? 06 Gender: ? F ?Cargo Vessel Stewardess: ?? : ?1985 ? Requested By: JOHNNY Alonzo Order Number: [id number] ? Sammie MARTÍNEZ: ?? SCAR MARQUEZ MD ? Measurements Intervals ?[place] ? Rate: ? 124 ?P: ?50 WI: ? 130 ?QRS: ?27 QRSD: ? 92 [...] Date: 2016-03-08 Pat Name: CRISTY TALBOT Department: [facility] Room: Gender: F Cargo Vessel Stewardess: : 1985 Requested By: JOHNNY Alonzo Order Number: [id number] Sammie MD: SCAR MARQUEZ MD Measurements Intervals [place] Rate: 124 P: 50 WI: 130 QRS: 27 QRSD: 92 T: -14 [...] MD CARDIAC ECG ORDERABLES Fin al Result [facility] * CHEST PA AND LATERAL (03/08/2016 [...] preliminary report dictated by Dr. Madhuri Wolf, residential living assistant, and has not been finalized by an [...] preliminary report dictated by Dr. Madhuri Wolf, residential living assistant, and has not been finalized by an attending radiologist. I have personally reviewed the images and the above interpretation and agree with the findings. us Scar Marquez MD IMG DIAGNOSTIC IMAGING ORD ERABLES Final Result * D-DIMER (03/08/2016 15:10 EDT) D-Dimer <200 <230 ng/mL 03/08/2016 15:50 T [facility] Comment: CUTOFF VALUE FOR THE EXCLUSION OF DVT and PE: 230 ng/mL D-dimer units Any use of the age-adjusted cutoff value is a post-analytic modification of this FDA-approved test and is considered off-label use of the test result. [facility] laboratory does not have literature to support the validity of an age-adjusted cutoff for our specific assay. Performed at [facility], [place], [place] Blood specimen (specimen) BLOOD SPECIMEN / Unknown 03/08/2016 15:10 EDT 03/08/2016 15:38 EDT us Scar Marquez MD HEMATOLOGY & PF4 ORDERABLE S Final Result [facility] [address] [place] [address] * (ABNORMAL) COMPREHENSIVE METABOLIC PANEL (CMP) (03/08/2016 15:10 EDT) Potassium 4.5 3.5 - 5.0 mEq/L 03/08/2016 16:07 [facility] Sodium 137 136 - 145 mEq/L 03/08/2016 16:07 [facility] Chloride 99 96 - 110 mEq/L 03/08/2016 16:07 [facility] CO2 27 24 - 32 mEq/L 03/08/2016 16:07 [facility] Total Alkaline Phosphatase 122 38 - 126 U/L 03/08/2016 16:07 [facility] Bilirubin, Total <0.5 <1.4 mg/dl 03/08/20 16 16:07 [facility] AST 16 15 - 46 U/L 03/08/2016 16:07 [facility] ALT 17 <53 U/L 03/08/2016 16:07 [facility] Albumin 3.9 3.4 - 4.9 g/dl 03/08/2016 16:07 [facility] Total Protein 7.1 6.3 - 8.2 g/dl 03/08/2016 16:07 [facility] Creatinine 0.50(L) 0.52 - 1.04 mg/dl 03/08/2016 16:07 [facility] GFR, Calculated 130 >60 ml/min/1.7 3m2 03/08/2016 16:07 [facility] Comment: eGFR calculated using CKD-EPI equation for non Americans. Multiply eGFR by 1.16 for Americans. BUN 9(L) 10 - 26 mg/dl 03/08/2016 16:07 [facility] Calcium 9.7 8.5 - 10.5 mg/dl 03/08/2016 16:07 [facility] Calculated Calcium 10.2 8.5 - 10.5 mg/dl 03/08/2016 16:07 [facility] Glucose, Serum 278(H) 70 - 100 mg/dl 03/08/2016 16:07 [facility] Fasting? Unknown 03/08/2016 15:39 [facility] Comment:Performed at [facility], [place], [place] Blood specimen (specimen) BLOOD SPECIMEN / Unknown 03/08/2016 15:10 EDT 03/08/2016 15:38 EDT Scar Marquez MD CHEMISTRY & BLOOD GAS [facility] Final Result [facility] [address] [place] [address] * (ABNORMAL) HEMAGRAM AND DIFFERENTIAL (03/08/2016 15:10 EDT) WBC 21.39(H) 4.0 - 12.4 K/cmm 03/08/2016 15:50 [facility] RBC 4.87 3.86 - 5.04 M/cmm 03/08/2016 15:50 [facility] Hemoglobin 15.2 11.6 - 15.2 gm/dl 03/08/2016 15:50 [facility] HCT 42.5 34.9 - 44.4 % 03/08/2016 15:50 [facility] MCV 87 81 - 98 fl 03/08/2016 15:50 [facility] MCH 31.2 26.7 - 33.3 pg 03/08/2016 15:50 [facility] MCHC 35.8 32.1 - 35.9 gm/dl 03/08/2016 15:50 [facility] RDW-CV 12.4 11.7 - 14.6 % 03/08/2016 15:50 [facility] RDW-SD 39.1 37.6 - 50.3 fl 03/08/2016 15:50 [facility] PLT 407(H) 141 - 377 K/cmm 03/08/2016 15:50 [facility] MPV 10.2 9.5 - 12.7 fl 03/08/2016 15:50 [facility] Neutrophils 71.0 % 03/08/2016 16:07 [facility] % Bands 3.0 % 03/08/2016 16:07 [facility] Lymphocytes 19.0 % 03/08/2016 16:07 [facility] % Atyp Lymphs 1.0 % 03/08/2016 16:07 [facility] Monocytes 4.0 % 03/08/2016 16:07 [facility] Eosinophils 2.0 % 03/08/2016 16:07 [facility] ABS Neutrophils 15.19(H) 2.20 - 8.85 K/cmm 03/08/2016 16:07 [facility] ABS Bands 0.64 K/cmm 03/08/2016 16:07 [facility] ABS Lymphs 4.06(H) 1.09 - 3.30 K/cmm 03/08/2016 16:07 [facility] ABS Atyp Lymphs 0.21 K/cmm 6 16:07 [facility] ABS Monocytes 0.86(H) 0.1 - 0.8 K/cmm 03/08/2016 16:07 [facility] ABS Eosinophils 0.43 0.03 - 0.61 K/cmm 03/08/2016 16:07 EDT [facility] Type of Diff: Manual 03/08/2016 16:07 EDT [facility] Comment:Performed at [place], [place] Blood specimen (specimen) BLOOD SPECIMEN / Unknown 03/08/2016 15:10 EDT 03/08/2016 15:38 EDT Scar Marquez MD PACKAGES & DNA PROBE ORDER HAILEY Final Result [facility] [address] [place] [address] * RAPID STREP (03/08/2016 14:40 EDT) Rapid Strep A Screen Neg 03/08/2016 15:09 EDT [facility] Comment:Performed at [place], [place] Specimen of unknown material (specimen) TOPOGRAPHY UNKNOWN / Unknown 03/08/2016 14:40 EDT 03/08/2016 14:58 EDT Scar Marquez MD MICROBIOLOGY - GENERAL ORD ERABLES Final Result Performing Organization Address [facility]/ZIP Co de Phone Number [facility] [address] [place] [address] * PHARYNGITIS CULTURE (03/08/2016 14:40 EDT) Result No group A beta streptococci isolated. Usual devin-pharyngeal candis. 03/10/2016 8:14 EDT [facility] Specimen of unknown material (specimen) ENTIRE THROAT / Unknown 03/08/2016 14:40 EDT 03/08/2016 19:07 EDT Comment:Specimen submitted o n a flocked swab. Scar Marquez MD MICROBIOLOGY - GENERAL ORD ERABLES Final Result Performing Organization Address City/[facility]/ZIP Co de Phone Number [facility] [address] [place] [address] documented in this encounter Visit Diagnoses Diagnosis [...] 03/08/2016 documented in this encounter Care Teams Loading Machine Tool Setter Relationship Specialty Start Date End Date None, Provider PCP - General 03/08/16 08/21/18 documented as of this encounter
--- OUTSIDE RECORDS SUMMARY | 2024-05-31 07:36 | XMS_ITS | Encounter Summary ---
Author Organization [facility] Address [address] [place] [address] Care Team Providers Care Zipper Trimmer Hand Name Role Phone Nimisha Clifton RN PATIENT SERVICES Primary Care Provider [phone] Encounter Details Date Type Department Care Team (Late st Contact Info) Description 09/03/2015 Results Only [facility] Adult Primary Care - Speculator [address] [place], [place] [id number] Nimisha Clifton, RN PATIENT SERVICES 1 [facility] Level [address] [place] [address] Social History Tobacco Use Types [...] 1.8 ng/dl 09/03/2015 18:43 EDT [facility] BLOOD SPECIMEN / Unknown 09/03/2015 12:33 EDT 09/03/2015 13:37 EDT us Nimisha Clifton NP CHEMISTRY & BLOOD GAS ORD ERABLES Final Result [facility] [address] [place] [address] documented in this encounter Visit Diagnoses Not on filedocumented in this encounter Care Teams Zipper Trimmer Hand Relationship Specialty Start Date End Date Nimisha Clifton NP 1 [facility] [address] [place] [phone] PCP - General 08/28/15 03/07/16 documented as of this encounter
--- OUTSIDE RECORDS SUMMARY | 2024-05-31 07:36 | XMS_ITS | Encounter Summary ---
Author Organization [facility] Address [address] [place] [address] Care Team Providers Care Patient Registration Representative Name Role Phone Benita Shafer GUSTAVO Primary Care Provider [phone] Encounter Details Date Type Department Care Team (Late st Contact Info) Description 10/26/2018 Phlebotomy Only [address] [address] Labor Relations Manager, Outpatient 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 (Primary [...] 10 - 26 mg/dl 10/26/2018 13:09 EDT [facility] Blood specimen (specimen) BLOOD SPECIMEN / Unknown 10/26/2018 12:28 EDT 10/26/2018 12:42 EDT Charu Flynn MD CHEMISTRY & BLOOD GAS OR DERABLES Final Result Performing Organization Address [facility] Co de Phone Number [facility] [address] [place] [address] * (ABNORMAL) CREATININE (10/26/2018 12:28 EDT) Creatinine 0.44(L) 0.52 - 1.04 mg/dl 10/26/2018 13:09 EDT [facility] GFR, Calculated 133 >60 ml/min/1.7 3m2 10/26/2018 13:09 EDT [facility] Comment: eGFR calculated using CKD-EPI equation for non Americans. Multiply eGFR by 1.16 for Americans. Blood specimen (specimen) BLOOD SPECIMEN / Unknown 10/26/2018 12:28 EDT 10/26/2018 12:42 EDT us Charu Flynn MD CHEMISTRY & BLOOD GAS OR DERABLES Final Result Performing Organization Address City/[facility]/ZIP Co de Phone Number [facility] [address] [place] [address] * ALT (10/26/2018 12:28 EDT) ALT 22 <53 U/L 10/26/2018 13:09 EDT [facility] Blood specimen (specimen) BLOOD SPECIMEN / Unknown 10/26/2018 12:28 EDT 10/26/2018 12:42 EDT us Charu Flynn MD CHEMISTRY & BLOOD GAS OR DERABLES Final Result Performing Organization Address City/[facility]/ZIP Co de Phone Number [facility] [address] [place] [address] * (ABNORMAL) AST (10/26/2018 12:28 EDT) AST 14(L) 15 - 46 U/L 10/26/2018 13:09 EDT [facility] Blood specimen (specimen) BLOOD SPECIMEN / Unknown 10/26/2018 12:28 EDT 10/26/2018 12:42 EDT us Charu Flynn MD CHEMISTRY & BLOOD GAS OR DERABLES Final Result Performing Organization Address [facility] de Phone Number [facility] [address] [place] [address] * COMPLETE BLOOD COUNT (10/26/2018 12:28 EDT) WBC 11.89 4.0 - 12.4 K/cmm 10/26/2018 13:06 [facility] RBC 4.82 3.86 - 5.04 M/cmm 10/26/2018 13:06 [facility] Hemoglobin 15.0 11.6 - 15.2 gm/dl 10/26/2018 13:06 [facility] HCT 42.5 34.9 - 44.4 % 10/26/2018 13:06 [facility] MCV 88 81 - 98 fl 10/26/2018 13:06 [facility] MCH 31.1 26.7 - 33.3 pg 10/26/2018 13:06 [facility] MCHC 35.3 32.1 - 35.9 gm/dl 10/26/2018 13:06 [facility] RDW-CV 11.9 <14.7 % 10/26/2018 13:06 [facility] RDW-SD 38.2 <50.4 fl 10/26/2018 13:06 EDT [facility] PLT 358 141 - 377 K/cmm 10/26/2018 13:06 EDT [facility] MPV 10.0 9.5 - 12.7 fl 10/26/2018 13:06 EDT [facility] Blood specimen (specimen) BLOOD SPECIMEN / Unknown 10/26/2018 12:28 EDT 10/26/2018 12:42 EDT us Charu Flynn MD HEMATOLOGY & PF4 ORDERAB LES Final Result [facility] [address] [place] [address] documented in this encounter Visit Diagnoses Diagnosis 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 - Primary documented in this encounter Care Teams Patient Registration Representative Relationship Specialty Start Date End Date Benita Shafer NP PCP - General 08/22/18 06/17/19 documented as of this encounter
--- OUTSIDE RECORDS SUMMARY | 2024-05-31 07:36 | XMS_ITS | Encounter Summary ---
Author Organization [facility] Address [address] [place] [address] Care Team Providers Care Wall Scraper Name Role Phone Benita Shafer GUSTAVO Primary Care Provider [phone] Encounter Details Date Type Department Care Team (Late st Contact Info) Description 10/24/2018 Orders Only [facility] - [address] [id number] Ana Coronado MD [address] [facility], [address] [place] [address] Complication of in first trimester [...] mIU/ml 10/24/2018 15:[address] [facility] [...] & BLOOD GAS CLEMENTE GOLDEN Final Result [facility] [address] [place] [phone] documented in this encounter Visit Diagnoses Diagnosis Complication of in first trimester- Primary documented in this encounter Care Teams Wall Scraper Relationship Specialty Start Date End Date Benita Shafer NP PCP - General 08/22/18 06/17/19 documented as of this encounter
--- OUTSIDE RECORDS SUMMARY | 2024-05-31 07:36 | XMS_ITS | Encounter Summary ---
Author Organization [facility] Address [address] [place] [address] Care Team Providers Care Pole Lift Operator Name Role Phone None, Provider Primary Care Provider Unavailabl e Reason for Visit * Reason Comments Cough Sent from [facility], for cough, fever, sore throat x three day, cough in dry, c/o chest pain and headache due to the cough. aox3 lungs sound diminished t/o Encounter Details Date Type Department Care Team (Late st Contact Info) Description 03/08/2016 17:09 EDT - 03/08/2016 23:11 EDT Emergency [facility] Emergency Department - [address] [id number] Broderick Foster MD [address] [facility], Level 1 [place] [id number] Emergency, MD Ekaterina Acute bronchitis, unspecified organism (Primary Dx); Type 2 diabetes mellitus not at goal ([facility]) Discharge Disposition: Home or Self Care Social [...] Use Robitussin-DM cough syrup as needed. Call [facility] primary care, [phone], to arrange for an appointment as soon [...] Notes * Nini Schultz RN - 03/08/2016 6451 EDT AVS reviewed, asked to f/u with pcp and to return to ed for worsening s/s * Nini Schultz RN - 03/08/2016 9518 EDT Provider at the bedside * Nini Schultz RN - 03/08/2016 1906 EDT Patient ambulatory to bathroom with steady gait * Nini Scuhltz RN - 03/08/2016 185 EDT Blood drawn [...] HR-120, BP-90/50, NOTE TAKEN BY DR. FOSTER ([facility]) * Catherine Osullivan - 03/08/2016 1720 EDT TCALL: CRISTY TALBOT, 85, 30YO FEMALE, DMII, NO MEDS X4 MONTHS, NOW RESP. INFECTION, WBC 21,000 GLUC. 273, CXR NEG., HR-120, BP-90/50, NOTE TAKEN BY DR. FOSTER ([facility]) * Catherine Osullivan - 03/08/2016 1720 EDT TCALL: CRISTY TALBOT, 85, 30YO FEMALE, DMII, NO MEDS X4 MONTHS, NOW RESP. INFECTION, WBC 21,000 GLUC. 273, CXR NEG., HR-120, BP-90/50, NOTE TAKEN BY DR. FOSTER ([facility]) * Broderick Foster MD - 03/08/2016 1716 EDT DOS: 03/08/2016 Chief Complaint Patient presents with ??? Cough Sent from [facility], for cough, fever, sore throat x three [...] Value Status Glucose, Fingerstick 163 (*) Final Food And Beverage Manager ID [id number] Final GLUCOSE, GLUCOMETER - Abnormal Glucose, Fingerstick 239 (*) Final Food And Beverage Manager ID [id number] Final BACTERIAL CULTURE, BLOOD BACTERIAL CULTURE, BLOOD [...] Pt was instruction to follow up at [facility] Primary [facility]. Prior to discharge usual and [...] 70 - 100 mg/dl 03/08/2016 21:12 EDT [facility] Food And Beverage Manager ID [id number] 03/08/2016 21:12 EDT [facility] Comment:Test Performed by [facility] BLOOD SPECIMEN / Unknown 03/08/2016 21:11 EDT 03/08/2016 21:12 EDT us Provider Unknown CHEMISTRY & BLOOD GAS ORDERA BLES Final Result Performing Organization Address [facility] Co de Phone Number [facility] [address] [place] [address] * BACTERIAL CULTURE, BLOOD (03/08/2016 18:47 EDT) Result No growth 03/13/2016 8:26 EDT [facility] Blood specimen (specimen) BLOOD SPECIMEN / Unknown 03/08/2016 18:47 EDT 03/08/2016 20:07 EDT Comment:Left~Antecubital Broderikc Foster MD MICROBIOLOGY - GENERAL CLEMENTE GOLDEN Final Result [facility] [address] [place] [address] * BACTERIAL CULTURE, BLOOD (03/08/2016 18:47 EDT) Result No growth 03/13/2016 8:26 EDT [facility] Blood specimen (specimen) BLOOD SPECIMEN / Unknown 03/08/2016 18:47 EDT 03/08/2016 20:05 EDT Comment:Right~Antecubital Broderick Foster MD MICROBIOLOGY - GENERAL ORDE ALEXANDRIANOBLE Final Result Performing Organization Address City/[facility]/ZIP Co de Phone Number [facility] [address] [place] [address] * (ABNORMAL) GLUCOSE, GLUCOMETER (03/08/2016 17:24 EDT) Glucose, Fingerstick 163(H) 70 - 100 mg/dl 03/08/2016 17:26 EDT [facility] Food And Beverage Manager [place] [id number] 03/08/2016 17:26 EDT [facility] Comment:Test Performed by [facility] BLOOD SPECIMEN / Unknown 03/08/2016 17:24 EDT 03/08/2016 17:26 EDT us Provider Unknown CHEMISTRY & BLOOD GAS ORDERA BLES Final Result Performing Organization Address [facility] Co de Phone Number [facility] [address] [place] [address] documented in this encounter Visit Diagnoses Diagnosis Acute bronchitis, unspecified organism- Primary Type 2 diabetes mellitus not at goal ([facility]) Type II or unspecified type [...] 03/08/2016 documented in this encounter Care Teams Pole Lift Operator Relationship Specialty Start Date End Date None, Provider PCP - General 03/08/16 08/21/18 documented as of this encounter
--- OUTSIDE RECORDS SUMMARY | 2024-05-31 07:37 | XMS_ITS | Encounter Summary ---
Author Organization [facility] Address [address] [place] [address] Care Team Providers Care Relief Operator Name Role Phone Unavailable Primary Care Provider Unavailabl e Encounter Details Date Type Department Care Team (Late st Contact Info) Description 03/30/2006 Before [facility]ISM Converted Visit (Maple) [facility] - Maple conversion [address] [place] [address] Angélica Hernandez CFNP Social History Tobacco Use Types Packs/Day Years Used Date Smoking Tobacco: Never Assessed Comments Unknown Sex and Gender Information Value Date Recorded Sex Assigned at Not on file Legal Sex Female 17:41 EST Gender Identity Female 06/18/2019 8:54 EST Sexual Orientation Not on file documented as of this encounter Progress Notes * Ra, Conv Generation Manager - 05/31/2009 0141 EST DIVISION OF SURGICAL ONCOLOGY - [facility] March 30, 2006 Broderick Ross M.D. [facility] [address] [place] [address], [address] [place] [address] Dear Doctor Vandana: Thank you in advance [...] - JUNE Plata Bhupendra addison Job ID: [id number] Document ID: [id number] cc: Broderick Ross MD JUNE Calzada Bhupendra addison Job ID: [id number] Document ID: [id number] cc: Broderick Ross MD * Dayron Knapp Generation Manager - 05/31/2009 0140 EST OF SURGICAL ONCOLOGY [...] from the paternal side. Ethnic background is Filipino and [place]. CLEANING TECHNICIAN history: Menarche at age 11. She is [...] - JUNE Plata Bhupendra addison Job ID: [id number] Document ID: [id number] cc: Kamini Gore MD - JUNE Hernandez Bhupendra addison Job ID: [id number] Document ID: [id number] cc: Kamini Gore MD documented in this encounter Plan of Treatment Not on file documented as of this encounter Visit Diagnoses Not on filedocumented in this encounter
--- OUTSIDE RECORDS SUMMARY | 2024-05-31 07:37 | XMS_ITS | Encounter Summary ---
Author Organization [facility] Address [address] [place] [address] Care Team Providers Care Construction Rep Name Role Phone Unavailable Primary Care Provider Unavailabl e Encounter Details Date Type Department Care Team (Latest Contact Info) Description 10/11/2006 10:03 EDT - 10/11/2006 11:59 EDT Hospital Encounter [address] [address] Fermin Lovett MD Discharge Disposition: Auto Discharge [...] Impression: Normal pelvic ultrasound Fermin Lovett MD [facility] US ORDERABLES Penny islas Result documented in this encounter Visit Diagnoses Not on filedocumented in this encounter
--- OUTSIDE RECORDS SUMMARY | 2024-05-31 07:37 | XMS_ITS | Encounter Summary ---
Author Organization [facility] Address [address] [place] [address] Care Team Providers Care Audiovisual Lead Technician Name Role Phone Jasmin Jara Primary Care Provider Unavail able Encounter Details Date Type Department Care Team (Late st Contact Info) Description 05/05/2010 Results Only [facility] - [facility] ([facility] [address] [place], [place] [id number] Ann Booker MD [address] [place] [address] Social History Tobacco Use Types Packs/Day Years [...] ? CRISTY TALBOT ? Accession #: ? [id number] ? : ? 1985 (Age: 25) ??F [...] Final R esult [facility] [address] [place] [address] documented in this encounter Visit Diagnoses Not on filedocumented in this encounter Care Teams Audiovisual Lead Technician Relationship Specialty Start Date End Date Jasmin Jara PA PCP - General 10/06/09 05/09/10 documented as of this encounter
--- OUTSIDE RECORDS SUMMARY | 2024-05-31 07:37 | XMS_ITS | Encounter Summary ---
Author Organization [facility] Address [address] [place] [address] Care Team Providers Care Nail Polish Brush Machine Feeder Name Role Phone Unavailable Primary Care Provider Unavailabl e Encounter Details Date Type Department Care Team (Latest Contact Info) Description 08/23/2007 10:09 EDT - 08/23/2007 11:59 EDT Hospital Encounter [facility] Emergency Department - [facility] [address] [place] [address] Emergency, Default, MD Discharge Disposition: Home or [...] sinus inflammatory disease. us Subhadeep Jeff MARTÍNEZ [facility] [place] ORDERABLES Final Res ult * (ABNORMAL) GLUCOSE, SERUM (08/23/2007 14:50 EDT) Glucose, Serum 124(H) 70 - 100 mg/dl [facility] 08/23/2007 14:5 0 EDT 08/23/2007 15:01 EDT us Default Emergency MD CHEMISTRY & BLOOD GAS ORDER HAILEY Final Result Performing Organization Address [facility] de Phone Number [facility] [address] [place] [address] * PHOSPHORUS (08/23/2007 14:50 EDT) Phosphorus 3.1 2.5 - 4.5 mg/dl [facility] 08/23/2007 14:5 0 EDT 08/23/2007 15:01 EDT us Default Emergency MD CHEMISTRY & BLOOD GAS ORDER HAILEY Final Result Performing Organization Address [facility] Phone Number [facility] [address] [place] [address] * MAGNESIUM (08/23/2007 14:50 EDT) Magnesium 1.9 1.7 - 2.8 mg/dl [facility] 08/23/2007 14:5 0 EDT 08/23/2007 15:01 EDT us Default Emergency MD CHEMISTRY & BLOOD GAS ORDER HAILEY Final Result Performing Organization Address [facility] de Phone Number [facility] [address] [place] [address] * ELECTROLYTES (08/23/2007 14:50 EDT) Sodium 142 136 - 145 mEq/L [facility] Potassium 4.2 3.5 - 5.0 mEq/L [facility] Chloride 105 96 - 110 mEq/L [facility] CO2 25 24 - 32 mEq/L [facility] 08/23/2007 14:5 0 EDT 08/23/2007 15:01 EDT us Default Emergency MD CHEMISTRY & BLOOD GAS ORDER HAILEY Final Result Performing Organization Address City/[facility]/ZIP Co de Phone Number [facility] [address] [place] [address] * HOLD BLUE TOP (08/23/2007 14:50 EDT) Pathologist [facility] Hold Blue Top Sample for coagulation will be discarded after 4 hours [facility] 08/23/2007 14:5 0 EDT 08/23/2007 15:01 EDT us Default Emergency MD LAB INFO SERVICE AND SUPPOR T & PHONE RESULT Final Result Performing Organization Address [facility] Co de Phone Number [facility] [address] [place] [address] * FOLATE (08/23/2007 14:50 EDT) [facility] Folate >24.0 ng/mL [facility] Comment: Deficient: ??Less than 3.4 ng/mL Indeterminate: ??3.4-5.4 ng/mL Normal: ??Greater than 5.4 ng/mL 08/23/2007 14:5 0 EDT 08/23/2007 15:01 EDT us Default Emergency CHEMISTRY & BLOOD GAS ORDER HAILEY Final Result Performing Organization Address [facility] Co de Phone Number [facility] [address] [place] [address] * (ABNORMAL) CREATININE (08/23/2007 14:50 EDT) [facility] Creatinine 0.66(L) 0.7 - 1.5 mg/dl [facility] GFR, Calculated >60 ml/min/1.7 3m2 [facility] 08/23/2007 14:5 0 EDT 08/23/2007 15:01 EDT us Default Emergency CHEMISTRY & BLOOD GAS ORDER HAILEY Final Result Performing Organization Address City/[facility]/ZIP Co de Phone Number [facility] [address] [place] [address] * CK (08/23/2007 14:50 EDT) CK 68 30 - 135 U/L [facility] 08/23/2007 14:5 0 EDT 08/23/2007 15:01 EDT us Default Emergency MD CHEMISTRY & BLOOD GAS ORDER HAILEY Final Result [facility] [address] [place] [address] * (ABNORMAL) HEMAGRAM AND DIFFERENTIAL (08/23/2007 14:50 [...] % Eosinophils 1.0 0.6 - 6.9 % [facility] % Basophils 0.3 0.2 - [...] Result Performing Organization Address [facility] de Phone Number [facility] [address] [place] [address] * CALCIUM (08/23/2007 14:50 EDT) Calcium 10.0 8.5 - 10.5 mg/dl [facility] Calculated Calcium 10.0 8.5 - 10.5 mg/dl [facility] 08/23/2007 14:5 0 EDT 08/23/2007 15:01 EDT us Default Emergency CHEMISTRY & BLOOD GAS ORDER HAILEY Final Result Performing Organization Address [facility] de Phone Number [facility] [address] [place] [address] * BUN (08/23/2007 14:50 EDT) BUN 12 10 - 26 mg/dl [facility] 08/23/2007 14:5 0 EDT 08/23/2007 15:01 EDT us Default Emergency CHEMISTRY & BLOOD GAS ORDER HAILEY Final Result Performing Organization Address City/[facility] de Phone Number [facility] [address] [place] [address] documented in this encounter Visit Diagnoses Not on filedocumented in this encounter
--- OUTSIDE RECORDS SUMMARY | 2024-05-31 07:37 | XMS_ITS | Encounter Summary ---
Author Organization [facility] Address [address] [place] [address] Care Team Providers Care Stakes Player Name Role Phone Unavailable Primary Care Provider Unavailabl e Encounter Details Date Type Department Care Team (Latest Contact Info) Description 01/10/2006 10:03 EDT - 01/10/2006 11:59 EDT Hospital Encounter [facility] conversion [address] [place] [address] Myles Jackson Discharge Disposition: Auto Discharge Social [...]
--- OUTSIDE RECORDS SUMMARY | 2024-05-31 07:37 | XMS_ITS | Encounter Summary ---
Author Organization [facility] Address [address] [place] [address] Care Team Providers Care Shim Plug Cutter Name Role Phone None, Provider Primary Care Provider Unavailabl e Encounter Details Date Type Department Care Team ([facility] st Contact Info) Description 07/23/2015 10:49 EST - 07/23/2015 10:50 EST Hospital Encounter [address] [address] Robyn Bautista MD [address] [place] [phone] Discharge Disposition: Home or Self Care Social [...] on filedocumented in this encounter Care Teams Shim Plug Cutter Relationship Specialty Start Date End Date None, Provider PCP - General 01/01/15 08/27/15 documented as of this encounter
--- OUTSIDE RECORDS SUMMARY | 2024-05-31 07:37 | XMS_ITS | Encounter Summary ---
Author Organization [facility] Address [address] [place] [address] Care Team Providers Care Sample Hand Name Role Phone None, Provider Primary Care Provider Unavailabl e Encounter Details Date Type Department Care Team (Late st Contact Info) Description 02/11/2015 13:08 EDT - 02/11/2015 13:09 EDT Hospital Encounter [address] [address] Alaina Miranda, [address] [phone] Sunday Miranda MD [address] [place] [phone] [...] on filedocumented in this encounter Care Teams Sample Hand Relationship Specialty Start Date End Date None, Provider PCP - General 01/01/15 08/27/15 documented as of this encounter
--- OUTSIDE RECORDS SUMMARY | 2024-05-31 07:37 | XMS_ITS | Encounter Summary ---
Author Organization [facility] Address [address] [place] [address] Care Team Providers Care Seed Cleaner Operator Name Role Phone None, Provider Primary Care Provider Unavailabl e Reason for Visit * Reason Comments Foot Injury States a log fell on her left foot about 1 hour ago while swimming. + pain, swelling, tingling, and numbness. Unable to walk on foot. No treatment SAND MILLER. 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 Encounter Details Date Type Department Care Team (Late st Contact Info) Description 01/01/2015 0:26 EDT - 01/01/2015 2:25 EDT Emergency [facility] Emergency Department - [address] [phone] Kylah Whitaker PA-C [address] [place] [address], [address] [place] [address] Emergency, MD Ekaterina Contusion of [...] be sent through Care Everywhere. * BRUISES (SLOVENIAN) documented in this encounter Medications at Time [...] Unable to walk on foot. No treatment SAND MILLER. 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 HPI [...] - Abnormal Glucose, Fingerstick 152 (*) Final Waistline Joiner ID [id number] Final POCT GLUCOSE Procedures ED COURSE A [...] - 100 mg/dl 01/01/2015 0:[address] [facility] [place] Joiner ID [id number] 01/01/2015 0:[address] [facility] Comment:[facility] BLOOD SPECIMEN / Unknown 01/01/2015 0:53 EDT 01/01/2015 0:56 EDT Provider Unknown CHEMISTRY & BLOOD GAS ORDERA BLES Final Result [facility] [address] [place] [address] documented in this encounter Visit Diagnoses Diagnosis [...] 01/01/2015 documented in this encounter Care Teams Seed Cleaner Operator Relationship Specialty Start Date End Date None, Provider PCP - General 01/01/15 08/27/15 documented as of this encounter
--- OUTSIDE RECORDS SUMMARY | 2024-05-31 07:37 | XMS_ITS | Encounter Summary ---
Author Organization [facility] Address [address] [place] [address] Care Team Providers Care Barrel Stave Inspector Name Role Phone Jasmin Jara Primary Care Provider Unavail able Encounter Details Date Type Department Care Team (Late st Contact Info) Description 02/16/2010 Abstract Used for ABSTRACTING Data [phone] Jasmin Jara PA Social History Tobacco Use [...] 05/10/2010 added in this encounter Care Teams Barrel Stave Inspector Relationship Specialty Start Date End Date Jasmin Jara PA PCP - General 10/06/09 05/09/10 documented as of this encounter
--- OUTSIDE RECORDS SUMMARY | 2024-05-31 07:37 | XMS_ITS | Encounter Summary ---
Author Organization [facility] Address [address] [place] [address] Care Team Providers Care Media Aid Name Role Phone None, Provider Primary Care Provider Unavailabl e Encounter Details Date Type Department Care Team (Late st Contact Info) Description 07/23/2015 Results Only [facility] [phone] Robyn Bautista MD [address] [place] [phone] Social History Tobacco Use Types Packs/Day [...] EST) Progesterone 9.5 ng/ml 07/23/2015 11:47 EST [facility] Comment: NON- FEMALES: follicular phase: ??<0.2-1.4 ng/mL luteal phase: 3.3-25.6 ng/ml postmenopausal: ??<0.2-0.7 ng/mL FEMALES: first trimester: 11.2-90.0 ng/ml second trimester: 25.6-89.4 ng/ml third trimester: 48.4-422.5 ng/ml ECTOPIC PREGNANCIES: consult pathologist BLOOD SPECIMEN / Unknown 07/23/2015 8:56 EST 07/23/2015 10:06 EST Robyn Bautista MD CHEMISTRY & BLOOD GAS ORDERABLES Final Result [facility] [address] [place] [address] * (ABNORMAL) HCG FOR (07/23/2015 8:56 EST) Quant Beta HCG, Preg 2,093(H) <5 mIU/ml 07/23/2015 10:55 EST [facility] Comment: Reference Range: Negative = <5 Indeterminate = 5-25 recommend repeat in 48 hours. Positive = >25 BLOOD SPECIMEN / Unknown 07/23/2015 8:56 EST 07/23/2015 10:06 EST Robyn Bautista MD CHEMISTRY & BLOOD GAS ORDERABLES Final Result Performing Organization Address City/[facility]/ZIP Co de Phone Number [facility] [address] [place] [address] documented in this encounter Visit Diagnoses Not on filedocumented in this encounter Care Teams Media Aid Relationship Specialty Start Date End Date None, Provider PCP - General 01/01/15 08/27/15 documented as of this encounter
--- OUTSIDE RECORDS SUMMARY | 2024-05-31 07:37 | XMS_ITS | Encounter Summary ---
Author Organization [facility] Address [address] [place] [address] Care Team Providers Care Industrial Gas Production Operator Name Role Phone Unavailable Primary Care Provider Unavailabl e Encounter Details Date Type Department Care Team (Late st Contact Info) Description 08/23/2007 Office Visit [facility] - Maple conversion [address] [place] [address] Naomi Graham PA Social History Tobacco Use [...] Your Current Medications: Continue current medications. Follow-up: [facility], , [address] [place] [address], [id number]. Follow up as needed. PAYAL [facility], , [facility], [address] [place], [address]. Follow up. Call for the next available appointment. call dr shahid [phone] and follow up in 2-3 weeks. Understanding [...] call you tomorrow to make an appointment ([phone]) . (Electronically signed by Aubrey Diana, 08/24/2007 [...] --1023 Antonella Reynaga R.N.. NURSING PROGRESS NOTES (Draughtsman at bedside speaking w/ pt. Warm blanket [...] 113 / 65. HR: 120. RR: 20. ([place] to bedside. Pt waiting for d/c.). --2016 [...] Patient verbalized understanding. Written instructions provided in [place]. The patient was accompanied by broom machine operator. The patient left the Emergency Department ambulatory. --2102 Rosa Handley R.N.. Rob Devine R.N. Student Nurse Locked/Released at 08/24/2007 15:04 by Silvia Shepard R.N. documented in this encounter Plan of Treatment Not on file documented as of this encounter Visit Diagnoses Not on filedocumented in this encounter
--- OUTSIDE RECORDS SUMMARY | 2024-05-31 07:37 | XMS_ITS | Encounter Summary ---
Author Organization [facility] Address [address] [place] [address] Care Team Providers Care Shuttle Buggy Operator Name Role Phone Unavailable Primary Care Provider Unavailabl e Encounter Details Date Type Department Care Team (Late st Contact Info) Description 04/29/2006 8:02 [facility] Hospital Encounter [facility] - Maple conversion [address] [place] [address] Fermin Trejo MD [place], Stephanie S [address] [place] [phone] Social History Tobacco Use Types Packs/Day Years Used Date Smoking Tobacco: Every Day Cigarettes 0.5 13.6 Started: 11/10/2010 Smokeless Tobacco: Never Comments:06/13/20 actively try ing to quit about 5-8 cigs/day Alcohol Use Standard Drinks/Week Comments Yes 0 (1 standard drink = 0.6 oz pur e alcohol) rarely [facility] Utilities Answer Date Recorded In the past 12 months has [employer], gas, oil, or water [employer] threatened to shut off services in [...] your living situation today? I have a [facility] place to live 04/03/2024 Think about [...] the past 12 months has th e [employer], gas, oil, or water [employer] threatened to shut off services in [...]
--- OUTSIDE RECORDS SUMMARY | 2024-05-31 07:37 | XMS_ITS | Encounter Summary ---
Author Organization [facility] Address [address] [place] [address] Care Team Providers Care Child Welfare Assistant Name Role Phone Unavailable Primary Care Provider Unavailabl e Encounter Details Date Type Department Care Team (Latest Contact Info) Description 06/22/2006 14:50 EST Hospital Encounter [facility] - Other [address] [place] [address] Broderick Ross MD Discharge Disposition: Auto Discharge [...]
--- OUTSIDE RECORDS SUMMARY | 2024-05-31 07:37 | XMS_ITS | Encounter Summary ---
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 For hobbies, she enjoys [...] 5 feet 4 inches and her weight [id number]. On examination of the patients anterior chest, [...] that the procedure was done as a [id number] admission with general anesthesia and that the [...] Ross MD - Erich Ross MD [facility] Job ID: [id number] Document ID: [id number] cc: JUNE Plata MD documented in this encounter Plan of Treatment Not on file documented as of this encounter Visit Diagnoses Not on filedocumented in this encounter
--- OUTSIDE RECORDS SUMMARY | 2024-05-31 07:37 | XMS_ITS | Encounter Summary ---
Author Organization [facility] Address [address] [place] [address] Care Team Providers Care Bar Tender Name Role Phone Nimisha Clifton ANGULAR JS DEVELOPER Primary Care Provider [phone] Reason for Visit * Reason Comments New Patient Visit Otalgia pain off and on for years but hurts consistantly since Tuesday Encounter Details Date Type Department Care Team (Late st Contact Info) Description 09/03/2015 11:00 EDT Office Visit [facility] Adult Primary Care - [address] [phone] Nimisha Clifton, GUSTAVO [address] [phone] Type 2 diabetes mellitus without complication (CMS-HCC) [...] the past years. Originally from the [facility]. Presently lives [facility] with her boyfriend/significant other and his [...] citalopram and develop suicidal ideation-she went to [place] for a short stay for withdrawal from [...] years until this past month when her FRUIT SPRAYER placed her back on it in early [...] unknown. She follows with Dr. López/affiliates in [facility] for her FRUIT SPRAYER care. She had a D&C done earlier [...] Hemoglobin A1c; Future Tachycardia Orders: - Thyroid [place]; Future Depression, unspecified depression type Orders: - Thyroid [place]; Future Other orders - insulin glargine (LANTUS [...] 0.55 - 4.78 uIU/ml 09/03/2015 18:19 EDT [facility] Comment: TSH cascade is not recommended for patients in which pituitary or hypothalamic disorders are suspected. Blood specimen (specimen) BLOOD SPECIMEN / Unknown 09/03/2015 12:33 EDT 09/03/2015 13:37 EDT us Nimisha Clifton ANGULAR JS DEVELOPER CHEMISTRY & BLOOD GAS ORD ERABLES Final Result [facility] [address] [place] [address] * HEMOGLOBIN A1C (09/03/2015 12:33 EDT) Hemoglobin A1C 8.8 % 09/03/2015 14:56 EDT [facility] Comment: Reference Range: <5.7% Normal 5.7-6.4% Increased risk for diabetes =>6.5% Diagnostic for diabetes (if confirmed) The A1c goal for non adults in general is <7%. The A1c goal for selected patients may be significantly lower than 7% if this can be achieved without significant hypoglycemia or other adverse effects of treatment. Est Avg Glucose 206 mg/dl 6 14:56 [facility] Comment: eAG represents the A1c result expressed as average glucose in mg/dl. Blood specimen (specimen) BLOOD SPECIMEN / Unknown 09/03/2015 12:33 EDT 09/03/2015 13:37 EDT us Nimisha Clifton NP CHEMISTRY & BLOOD GAS ORD ERABLES Final Result [facility] [address] [place] [address] * (ABNORMAL) COMPREHENSIVE METABOLIC PANEL (CMP) (09/03/2015 12:33 EDT) Potassium 4.1 3.5 - 5.0 mEq/L 09/03/2015 14:15 [facility] Sodium 141 136 - 145 mEq/L 09/03/2015 14:15 [facility] Chloride 101 96 - 110 mEq/L 09/03/2015 14:15 [facility] CO2 29 24 - 32 mEq/L 09/03/2015 14:15 [facility] Total Alkaline Phosphatase 84 38 - 126 U/L 09/03/2015 14:15 [facility] Bilirubin, Total <0.5 <1.4 mg/dl 09/03/19 16 14:15 [facility] AST 19 15 - 46 U/L 09/03/2015 14:15 [facility] ALT 33 <53 U/L 09/03/2015 14:15 [facility] Albumin 3.9 3.4 - 4.9 g/dl 09/03/2015 14:15 [facility] Total Protein 6.6 6.3 - 8.2 g/dl 09/03/2015 14:15 [facility] Creatinine 0.48(L) 0.52 - 1.04 mg/dl 09/03/2015 14:15 [facility] GFR, Calculated 132 >60 ml/min/1.7 3m2 09/03/2015 14:15 [facility] Comment: eGFR calculated using CKD-EPI equation for non Americans. Multiply eGFR by 1.16 for Americans. BUN 11 10 - 26 mg/dl 09/03/2015 14:15 [facility] Calcium 9.8 8.5 - 10.5 mg/dl 09/03/2015 14:15 [facility] Calculated Calcium 10.3 8.5 - 10.5 mg/dl 09/03/2015 14:15 [facility] Glucose, Serum 205(H) 70 - 100 mg/dl 09/03/2015 14:15 [facility] Fasting? No 09/03/2015 12:23 [facility] Blood specimen (specimen) BLOOD SPECIMEN / Unknown 09/03/2015 12:33 EDT 09/03/2015 13:37 EDT Nimisha Clifton NP CHEMISTRY & BLOOD GAS ORD ERABLES Final Result [facility] [address] [place] [address] documented in this encounter Visit Diagnoses Diagnosis Type 2 diabetes mellitus without complication ([facility])- Primary Type II or unspecified type [...] 03/08/2016 added in this encounter Care Teams Bar Tender Relationship Specialty Start Date End Date Nimisha Clifton NP 1 [facility] 1 [place] [phone] PCP - General 08/28/15 03/07/16 documented as of this encounter
--- OUTSIDE RECORDS SUMMARY | 2024-05-31 07:37 | XMS_ITS | Encounter Summary ---
Author Organization [facility] Address [address] [place] [address] Care Team Providers Care Tractor Trailer Driver Name Role Phone Unavailable Primary Care Provider Unavailabl e Encounter Details Date Type Department Care Team (Latest Contact Info) Description 01/24/2006 14:06 EDT Hospital Encounter [facility] - Maple conversion [address] [place] [address] Felix Merritt III, MD [address] [place] [address] Discharge Disposition: Auto Discharge Social History Tobacco [...] ES Final Result [facility] [address] [place] [address] * (ABNORMAL) COMPREHENSIVE METABOLIC PANEL (01/24/2006 16:03 EDT) [facility] Potassium 4.0 3.5 - 5.0 mEq/L [facility] [...] 100 mg/dl [facility] Fasting? Yes [facility] Albumin/Globulin Ratio 1.4 [facility] 01/24/2006 16:0 3 EDT 01/24/2006 18:49 EDT us Fermin Trejo MD CHEMISTRY & BLOOD GAS ORDERABL ES Final Result [facility] [address] [place] [address] * (ABNORMAL) HEMAGRAM (01/24/2006 16:03 EDT) WBC [...] Fi nal Result [facility] [address] [place] [address] documented in this encounter Visit Diagnoses Not on filedocumented in this encounter
--- OUTSIDE RECORDS SUMMARY | 2024-05-31 07:37 | XMS_ITS | Encounter Summary ---
Author Organization [facility] Address [address] [place] [address] Care Team Providers Care Sports Management Internship Name Role Phone Trinity Samainego MD Primary Care Provider Encounter Details Date Type Department Care Team (Late st Contact Info) Description 09/18/[address] [address] Trinity Samaniego MD [address] [phone] Obesity, unspecified; Migraine NOS/not intrcbl [...] migrainosus documented in this encounter Care Teams Sports Management Internship Relationship Specialty Start Date End Date Trinity Samaniego MD [address] [phone] PCP - General 09/16/09 10/05/09 documented as of this encounter
--- OUTSIDE RECORDS SUMMARY | 2024-05-31 07:37 | XMS_ITS | Encounter Summary ---
Author Organization [facility] Address [address] [place] [address] Care Team Providers Care Furnace Loader Name Role Phone None, Provider Primary Care Provider Unavailabl e Encounter Details Date Type Department Care Team (Late st Contact Info) Description 08/22/2015 Documentation Visit [facility] Obstetrics & Midwifery - [address] [phone] Broderick Wolff MD [address] [facility], [address] [place] [address] Social History Tobacco Use Types [...] on filedocumented in this encounter Care Teams Furnace Loader Relationship Specialty Start Date End Date None, Provider PCP - General 01/01/15 08/27/15 documented as of this encounter
--- OUTSIDE RECORDS SUMMARY | 2024-05-31 07:37 | XMS_ITS | Encounter Summary ---
Author Organization [facility] Address [address] [place] [address] Care Team Providers Care Software Validation Technician Name Role Phone Jasmin Jara Primary Care Provider Unavail able Encounter Details Date Type Department Care Team (Late st Contact Info) Description 10/20/2009 Abstract [facility] Plastic, Reconstructive & Cosmetic Surgery - [address], [address] [place], [place] [address] Jasmin Jara PA Social History Tobacco Use [...] filedocumented in this encounter Care Teams Software Validation Technician Relationship Specialty Start Date End Date Jasmin Jara PA PCP - General 10/06/09 05/09/10 documented as of this encounter
--- OUTSIDE RECORDS SUMMARY | 2024-05-31 07:37 | XMS_ITS | Encounter Summary ---
Author Organization [facility] Address [address] [place] [address] Care Team Providers Care Desizing Machine Back Tender Name Role Phone Unavailable Primary Care Provider Unavailabl e Encounter Details Date Type Department Care Team (Late st Contact Info) Description 09/27/2005 9:47 EDT Hospital Encounter [facility] [address] [place] [address] Oscar Moreno MD MSc [address] [place] [address] Social History Tobacco Use Types Packs/Day Years Used Date Smoking Tobacco: Every Day Cigarettes 0.5 13.6 Started: 11/10/2010 Smokeless Tobacco: Never Comments:06/13/20 actively try ing to quit about 5-8 cigs/day Alcohol Use Standard Drinks/Week Comments Yes 0 (1 standard drink = 0.6 oz pur e alcohol) rarely [facility] Utilities Answer Date Recorded In the past 12 months has [employer], gas, oil, or water [employer] threatened to shut off services in your [...] your living situation today? I have a [facility] place to live 04/03/2024 Think about [...] the past 12 months has th e [employer], gas, oil, or water [employer] threatened to shut off services in your [...]
--- OUTSIDE RECORDS SUMMARY | 2024-05-31 07:37 | XMS_ITS | Encounter Summary ---
Author Organization [facility] Address [address] [place] [address] Care Team Providers Care Edge Finisher Name Role Phone Unavailable Primary Care Provider Unavailabl e Encounter Details Date Type Department Care Team (Late st Contact Info) Description 09/27/2005 Before PRISM Converted Visit (Maple) [facility] - Maple conversion [address] [place] [address] Oscar Moreno MD MSc [address] [place] [address] Social History Tobacco Use Types Packs/Day Years [...] or drug addictions. She is employed at [employer]. She is single and lives at home with her family. 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 She continues [...] historyof ovarian cancer. The patient is of [place] and [place] background. Review of systems: Constitutional: The patient [...] sonographic abnormality in the right breast. Diagnostics: [facility] Radiology report dated 09/21/05. Right breast [...] patient the name and number for the [facility] to help in herpursuit to arrange primary care. Signed by Oscar Moreno MD 10/06/2005 07:27 Nery Del Valle MD Oscar Moreno MD - Oscar Moreno MD P - [facility] Job ID: [id number] Document ID: [id number] cc: Kamini Gore MD documented in this encounter Plan of Treatment Not on file documented as of this encounter Visit Diagnoses Not on filedocumented in this encounter
--- OUTSIDE RECORDS SUMMARY | 2024-05-31 07:37 | XMS_ITS | Encounter Summary ---
Author Organization [facility] Address [address] [place] [address] Care Team Providers Care Bun Panner Name Role Phone Unavailable Primary Care Provider Unavailabl e Encounter Details Date Type Department Care Team (Late st Contact Info) Description 09/27/2006 9:23 EDT Hospital Encounter [facility] - Maple conversion [address] [place] [address] Fermin Lovett MD Social History Tobacco Use Types Packs/Day Years Used Date Smoking Tobacco: Every Day Cigarettes 0.5 13.6 Started: 11/10/2010 Smokeless Tobacco: Never Comments:06/13/20 actively try ing to quit about 5-8 cigs/day Alcohol Use Standard Drinks/Week Comments Yes 0 (1 standard drink = 0.6 oz pur e alcohol) rarely C Utilities Answer Date Recorded In the past 12 months has [employer], gas, oil, or water [employer] threatened to shut off services in your [...] the past 12 months has th e [employer], gas, oil, or water company threatened to [...] [place] Final Result [facility] [address] [place] [address] * (ABNORMAL) COMPREHENSIVE METABOLIC PANEL (09/27/2006 10:36 EDT) Pathologist [facility] Potassium 4.3 3.5 - 5.0 mEq/L [facility] [...] ORDERABLES Final Result [facility] [address] [place] [address] * (ABNORMAL) HEMAGRAM AND DIFFERENTIAL (09/27/2006 10:36 [...] & DNA PROBE O RDERABLES Final Result [facility] [address] [place] [address] documented in this encounter Visit Diagnoses Not on filedocumented in this encounter Additional Health Concerns Infection Onset Date Last Indicated Resolved Time R/O COVID-19 08/04/2020 08/04/2020 08/04/2020 11:4 0 EST documented as of this encounter
--- OUTSIDE RECORDS SUMMARY | 2024-05-31 07:37 | XMS_ITS | Encounter Summary ---
Author Organization [facility] Address [address] [place] [address] Care Team Providers Care Basketball Coach Name Role Phone Unavailable Primary Care Provider Unavailabl e Encounter Details Date Type Department Care Team (Late st Contact Info) Description 12/22/2005 11:00 EDT Hospital Encounter [facility] - Maple conversion [address] [place] [address] Fermin Lovett MD Social History Tobacco Use Types Packs/Day Years Used Date Smoking Tobacco: Every Day Cigarettes 0.5 13.6 Started: 11/10/2010 Smokeless Tobacco: Never Comments:06/13/20 actively try ing to quit about 5-8 cigs/day Alcohol Use Standard Drinks/Week Comments Yes 0 (1 standard drink = 0.6 oz pur e alcohol) rarely C Utilities Answer Date Recorded In the past 12 months has [employer], gas, oil, or water [employer] threatened to shut off services in [...]
--- OUTSIDE RECORDS SUMMARY | 2024-05-31 07:37 | XMS_ITS | Encounter Summary ---
Author Organization [facility] Address [address] [place] [address] Care Team Providers Care Buffing Wheel Operator Name Role Phone None, Provider Primary Care Provider Unavailabl e Encounter Details Date Type Department Care Team (Late st Contact Info) Description 08/01/2015 Results Only [facility]- PRISM [phone] Kamini Vega MD [address] [place] [address] [address] [place] [address] Social History Tobacco Use Types [...] EST) Progesterone 9.7 ng/ml 08/01/2015 19:37 EST [facility] Comment: NON- FEMALES: follicular phase: ??<0.2-1.4 ng/mL luteal phase: 3.3-25.6 ng/ml postmenopausal: ??<0.2-0.7 ng/mL FEMALES: first trimester: 11.2-90.0 ng/ml second trimester: 25.6-89.4 ng/ml third trimester: 48.4-422.5 ng/ml ECTOPIC PREGNANCIES: consult pathologist BLOOD SPECIMEN / Unknown 08/01/2015 9:38 EST 08/01/2015 17:36 EST us Kamini Vega MD CHEMISTRY & BLOOD GAS ORDERA BLES Final Result [facility] [address] [place] [address] documented in this encounter Visit Diagnoses Not on filedocumented in this encounter Care Teams Buffing Wheel Operator Relationship Specialty Start Date End Date None, Provider PCP - General 01/01/15 08/27/15 documented as of this encounter
--- OUTSIDE RECORDS SUMMARY | 2024-05-31 07:37 | XMS_ITS | Encounter Summary ---
Author Organization [facility] Address [address] [place] [address] Care Team Providers Care Trench Trimmer Fine Name Role Phone Yannicknigel Nimisha Mendoza PEDIATRICS PHYSICIAN Primary Care Provider [phone] Encounter Details Date Type Department Care Team (Late st Contact Info) Description 09/03/2015 Phlebotomy Only [address] [address] Home Organizer, Outpatient Type 2 diabetes mellitus without complication ([facility]) ([facility]); Tachycardia; Depression, unspecified depression type Social History [...] EDT Type 2 diabetes mellitus without complication ([facility]) ([facility]) COMPREHENSIVE METABOLIC PANEL (CMP) Routine 09/03/2015 12:33 EDT Type 2 diabetes mellitus without complication ([facility]) ([facility] documented in this encounter Results * (ABNORMAL) THYROID CASCADE (09/03/2015 12:33 EDT) Pathologist [facility] TSH 0.48(L) 0.55 - 4.78 uIU/ml 09/03/2015 18:19 EDT [facility] Comment: TSH cascade is not recommended for patients in which pituitary or hypothalamic disorders are suspected. Blood specimen (specimen) BLOOD SPECIMEN / Unknown 09/03/2015 12:33 EDT 09/03/2015 13:37 EDT Nimisha Clifton NP CHEMISTRY & BLOOD GAS ORD ERABLES Final Result Performing Organization Address [facility] Co de Phone Number [facility] [address] [place] [address] * HEMOGLOBIN A1C (09/03/2015 12:33 EDT) [facility] Hemoglobin A1C 8.8 % 09/03/2015 14:56 EDT [facility] Comment: Reference Range: <5.7% Normal 5.7-6.4% Increased risk for diabetes =>6.5% Diagnostic for diabetes (if confirmed) The A1c goal for non adults in general is <7%. The A1c goal for selected patients may be significantly lower than 7% if this can be achieved without significant hypoglycemia or other adverse effects of treatment. Est Avg Glucose 206 mg/dl 6 14:56 EDT [facility] Comment: eAG represents the A1c result expressed as average glucose in mg/dl. Blood specimen (specimen) BLOOD SPECIMEN / Unknown 09/03/2015 12:33 EDT 09/03/2015 13:37 EDT Nimisha Clifton NP CHEMISTRY & BLOOD GAS ORD ERABLES Final Result Performing Organization Address [facility] Co de Phone Number [facility] [address] [place] [address] * (ABNORMAL) COMPREHENSIVE METABOLIC PANEL (CMP) (09/03/2015 12:33 EDT) Pathologist [facility] Potassium 4.1 3.5 - 5.0 mEq/L 09/03/2015 14:15 [facility] Sodium 141 136 - 145 mEq/L 09/03/2015 14:15 [facility] Chloride 101 96 - 110 mEq/L 09/03/2015 14:15 [facility] CO2 29 24 - 32 mEq/L 09/03/2015 14:15 [facility] Total Alkaline Phosphatase 84 38 - 126 U/L 09/03/2015 14:15 [facility] Bilirubin, Total <0.5 <1.4 mg/dl 09/03/19 16 14:15 [facility] AST 19 15 - 46 U/L 09/03/2015 14:15 [facility] ALT 33 <53 U/L 09/03/2015 14:15 [facility] Albumin 3.9 3.4 - 4.9 g/dl 09/03/2015 14:15 [facility] Total Protein 6.6 6.3 - 8.2 g/dl 09/03/2015 14:15 [facility] Creatinine 0.48(L) 0.52 - 1.04 mg/dl 09/03/2015 14:15 [facility] GFR, Calculated 132 >60 ml/min/1.7 3m2 09/03/2015 14:15 [facility] Comment: eGFR calculated using CKD-EPI equation for non Americans. Multiply eGFR by 1.16 for Americans. BUN 11 10 - 26 mg/dl 09/03/2015 14:15 [facility] Calcium 9.8 8.5 - 10.5 mg/dl 09/03/2015 14:15 [facility] Calculated Calcium 10.3 8.5 - 10.5 mg/dl 09/03/2015 14:15 [facility] Glucose, Serum 205(H) 70 - 100 mg/dl 09/03/2015 14:15 [facility] Fasting? No 09/03/2015 12:23 [facility] Blood specimen (specimen) BLOOD SPECIMEN / Unknown 09/03/2015 12:33 EDT 09/03/2015 13:37 EDT Nimisha Clifton NP CHEMISTRY & BLOOD GAS ORD ERABLES Final Result [facility] [address] [place] [address] documented in this encounter Visit Diagnoses Diagnosis Type 2 diabetes mellitus without complication ([facility]) Type II or unspecified type diabetes mellitus without mention of complication, not stated as uncontrolled Tachycardia Tachycardia, unspecified Depression, unspecified depression type documented in this encounter Care Teams Trench Trimmer Fine Relationship Specialty Start Date End Date Nimisha Clifton NP 1 [facility] 1 [place] [address] PCP - General 08/28/15 03/07/16 documented as of this encounter
--- OUTSIDE RECORDS SUMMARY | 2024-05-31 07:37 | XMS_ITS | Encounter Summary ---
Author Organization [facility] Address [address] [place] [address] Care Team Providers Care Disaster Recovery Coordinator Name Role Phone Madeline Caputo Primary Care Provider [phone]- [phone] Reason for Visit * Reason Comments Blood Sugar Problem NPD Encounter Details Date Type Department Care Team (Latest Contact Info) Description 05/12/2010 15:00 EST Office Visit [facility] Endocrinology - [facility] [address] [place], [place] [phone] Fermin Srinivasan MD [address] [place] [address] [address] [place] [address] Diabetes (CMS-HCC) ([facility]) (Primary Dx); Obesity, unspecified Social History Tobacco [...] - 05/12/2010 17:03 EST Recent A1c from [facility] 7.7%. Goal will be less than [...] similar or higher. Went to [facility] ER 05/10/10 because of BG 335. [...] 4 siblings, knows about 2, noDM. 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 Very unusual alcohol Activity - busy [...] tryand work on lifestyle. Seeing dietition ion [facility] next week. Will come back in June. If continues with inadequate control, will consider GLP-1 receptor agonist versus basal insulin. Would not suggest TZD, as potential for weight gain in her is considerable. Plan: Recent A1c from [facility] 7.7%. Goal will be less than [...] A1C Point of Care Testing Routine Diabetes ([facility]) ([facility]) Ordered: 05/12/2010 documented as of this encounter Visit Diagnoses Diagnosis Diabetes ([facility])- Primary Type II or unspecified type diabetes mellitus without mention of complication, not stated as uncontrolled Obesity, unspecified documented in this encounter Care Teams Disaster Recovery Coordinator Relationship Specialty Start Date End Date Madeline Caputo PA [address] [place] [address] PCP - General 05/10/10 12/31/14 documented as of this encounter
--- OUTSIDE RECORDS SUMMARY | 2024-05-31 07:37 | XMS_ITS | Encounter Summary ---
Author Organization [facility] Address [address] [place] [address] Care Team Providers Care Drive Worker Name Role Phone Unavailable Primary Care Provider Unavailabl e Encounter Details Date Type Department Care Team (Late st Contact Info) Description 03/30/2006 7:53 EDT Hospital Encounter [facility] [address] [place] [address] Unknown, Provider, Social History Tobacco Use Types Packs/Day Years Used Date Smoking Tobacco: Every Day Cigarettes 0.5 13.6 Started: 11/10/2010 Smokeless Tobacco: Never Comments:06/13/20 actively try ing to quit about 5-8 cigs/day Alcohol Use Standard Drinks/Week Comments Yes 0 (1 standard drink = 0.6 oz pur e alcohol) rarely C Utilities Answer Date Recorded In the past 12 months has [employer], gas, oil, or water company threatened to [...] in the past 12 m [facility], were you homeless or living in a [...]
--- OUTSIDE RECORDS SUMMARY | 2024-05-31 07:37 | XMS_ITS | Encounter Summary ---
Author Organization [facility] Address [address] [place] [address] Care Team Providers Care Shredding Machine Knife Changer Name Role Phone None, Provider Primary Care [...] 15:27 EDT - 02/24/2015 20:58 EDT Emergency [facility] Emergency Department - [address] [address] Sonal Rand, MARY [address] [phone] Broderick Singh MD [address] [place] [address], [address] [place] [address] Chilo Carrillo MD Emergency, MD [...] 20:40 EDT Rest Lots liquids See the clinic assistant doctor in 2 days as planned Return [...] test on 01/19 and positive UPT at [facility] the next week. She initiated care at [facility] 2 weeks ago and was told that the fetus had no heartbeat but was measuring 7 weeks. She wanted a second opinion so she went to [facility] on 02/14 where she was [...] Grandmother ??? Diabetes Paternal Grandfather OB History BUSINESS OPERATIONS DIRECTOR History OB History Para Term AB [...] examined with Dr. Michael Emanuel MD PGY-1 [facility] Obstetrics and Gynecology Pager: [phone] Brii Austin MD 02/24/2015 20:22 Attending addendum: [...] This RN present for pt's D+C by BUSINESS OPERATIONS DIRECTOR. Pt monitored for 1 hr s/p procedure. [...] ER. Pt to f/u with PCP and BUSINESS OPERATIONS DIRECTOR. * Carline Luna RN - 02/24/2015 1921 EDT Assumed care of pt. Pt tearful, family at bedside. VSS. Pt with no c/o pain or nausea at this time.Apical reg, LCTA, RR even/reg. BS present. Cap refill <2 secs. Call calloway within reach. No statedneeds at this time. * Doris Balderas RN - 02/24/2015 1844 EDT [employer] Manager surgery services at bedside now discussing findings and plan of care. * Doris Balderas RN - 02/24/2015 1757 EDT Taken for US. * Doris Balderas RN - 02/24/2015 1732 EDT Pad change x 2 this hour for large amount vaginal bleeding with large clots. [employer] Manager services in to evaluate-at bedside now. * [...] pending. ivf's infusing now. S/o at bedside. [employer] Manager at bedside now. * Broderick Singh MD [...] ago. At that time, she visited her credit portfolio advisor and was informed that she was 7 weeks , and that her baby had a no heartbeat. For a second evaluation at that time, the patient visited [facility], and was informed that her baby's heart beat was slow. The patient reports that spotting began again 1 week ago (Tuesday) at which time she returned to [facility] and was informed that her [...] TYPE AND SCREEN Final Number for problems [id number] (ED) Final BLOOD BANK SPECIMEN HOLD Hold BB Spec will exp at 23:59, 3 days from collect date Final TYPE AND SCREEN ABO B Final Rh Factor Negative Final Antibody Screen Positive Final Specimen Expires: 02/27/2015 @ 23:59 Final DIRECT ANTIGLOBULIN TEST LIZZIE Negative Final PREPARE RED BLOOD CELLS Product Code E0336 -1 RED BLOOD CELLS, Leukocytes Reduced Final Donor Number [id number] Final Unit ABO B Final Unit Rh [...] ordered. Seen in the ED by the BUSINESS OPERATIONS DIRECTOR service. Care is signed out to Dr. Carrillo at 17:10 with BUSINESS OPERATIONS DIRECTOR evaluation inprogress. ASSESSMENT AND PLAN Final diagnoses: [...] E0336 -1 RED BLOOD CELLS, Leukocytes Reduced [facility] Donor Number [id number] [facility] Unit ABO B [facility] Unit Rh NEG [facility] Cross Match Interp Compatible [facility] Unit Status Released From Crossmatch [facility] 02/24/2015 18:4 7 EDT us Chilo Carrillo MD BLOOD BANK ORDERABLES Final Result [facility] [address] [facility] [place] [address] * DIRECT ANTIGLOBULIN TEST (02/24/2015 18:47 EDT) LIZZIE Negative [facility] 02/24/2015 18:4 7 EDT us Chilo Carrillo MD BLOOD BANK TESTS Final Resu lt Performing Organization Address [facility] Co de Phone Number [facility] [address] [place] [address] * ANTIBODY IDENTIFICATION (02/24/2015 18:45 EDT) Antibody Identification Anti-D; patient recd RhIg [facility] 02/24/2015 18:4 5 EDT us Chilo Carrillo MD BLOOD BANK TESTS Final Resu lt Performing Organization Address [facility] de Phone Number [facility] [address] [facility] [place] [address] * RAD US PELVIS, TRANSVAGINAL, AND LIMITED DOPPLER (02/24/2015 18:21 EDT) Anatomical Region Laterality Modality Other 02/24/2015 18:2 1 EDT 02/25/2015 8:55 EDT Narrative 02/25/2015 8:55 EDT RAD US PELVIS, TRANSVAGINAL, AND LIMITED DOPPLER ??02/24/2015 6:21 PM Signs and Symptoms/Comments: ??reported IUP per clinic assistant which was then found in past wk to be non viable, est at 9 wks and now with increased bleeding and abd pain ??US requested by clinic assistant Comparison: Pelvic ultrasound October 2006 Technique: Grayscale [...] PM Signs and Symptoms/Comments: reported IUP per clinic assistant which was then found in past wk to be non viable, est at 9 wks and now with increased bleeding and abd pain US requested by clinic assistant Comparison: Pelvic ultrasound October 2006 Technique: Grayscale [...] AND SCREEN (02/24/2015 17:30 EDT) ABO B [facility] Rh Factor Negative [facility] Antibody Screen Positive [facility] Specimen Expires: 02/27/2015 @ 23:59 [facility] Blood specimen (specimen) 02/24/2015 17:30 EDT us Chilo Carrillo MD BLOOD BANK TESTS Final Resu lt Performing Organization Address City/[facility]/ZIP Co de Phone Number [facility] [address] [place] [address] * ED/WICC ADD-ON (02/24/2015 17:30 EDT) Tests to be added TYPE AND SCREEN 02/24/2015 17:28 EDT [facility] Number for problems [id number] (ED) 02/24/2015 17:28 EDT [facility] TOPOGRAPHY UNKNOWN / Unknown 02/24/2015 17:30 EDT 02/24/2015 18:01 EDT us Chilo Carrillo MD HEMATOLOGY & PF4 ORDERABLES Final Result [facility] [address] [place] [address] * HOLD GREEN TOP (02/24/2015 16:00 EDT) Hold Green Top Hold for further testing. Specimen will be held for 5 days. 02/24/2015 16:18 EDT [facility] Blood specimen (specimen) BLOOD SPECIMEN / Unknown 02/24/2015 16:00 EDT 02/24/2015 16:07 EDT us Sonal A Giorgi PA-C LAB INFO SERVICE AND SUPPOR T & PHONE RESULT Final Result Performing Organization Address City/[facility]/ZIP Co de Phone Number [facility] [address] [place] [address] * BLOOD BANK SPECIMEN HOLD (02/24/2015 16:00 EDT) Hold BB Spec will exp at 23:59, 3 days from collect date [facility] Blood specimen (specimen) 02/24/2015 16:00 EDT us Sonal A Giorgi PA-C BLOOD BANK TESTS Final Resu lt Performing Organization Address [facility]/ZIP Co de Phone Number [facility] [address] [place] [address]. [place] [address] * HOLD SST (02/24/2015 16:00 EDT) Hold SST Hold for further testing. Specimen will be held for 5 days. 02/24/2015 16:18 EDT [facility] Blood specimen (specimen) BLOOD SPECIMEN / Unknown 02/24/2015 16:00 EDT 02/24/2015 16:07 EDT us Sonal A Giorgi PA-C LAB INFO SERVICE AND SUPPOR T & PHONE RESULT Final Result Performing Organization Address [facility] Co de Phone Number [facility] [address] [place] [address] * HOLD BLUE TOP (02/24/2015 16:00 EDT) Hold Blue Top Sample for coagulation will be discarded after 4 hours 02/24/2015 16:20 EDT [facility] Blood specimen (specimen) BLOOD SPECIMEN / Unknown 02/24/2015 16:00 EDT 02/24/2015 16:07 EDT us Sonal A Giorgi PA-C LAB INFO SERVICE AND SUPPOR T & PHONE RESULT Final Result Performing Organization Address City/[facility]/ZIP Co de Phone Number [facility] [address] [place] [address] * (ABNORMAL) HEMAGRAM AND DIFFERENTIAL (02/24/2015 16:00 EDT) WBC 17.81(H) 4.0 - 12.4 K/cmm 02/24/2015 16:11 [facility] RBC 4.36 3.86 - 5.04 M/cmm 02/24/2015 16:11 [facility] Hemoglobin 13.6 11.6 - 15.2 gm/dl 02/24/2015 16:11 [facility] HCT 39.5 34.9 - 44.4 % 02/24/2015 16:11 [facility] MCV 91 81 - 98 fl 02/24/2015 16:11 [facility] MCH 31.1 26.7 - 33.3 pg 02/24/2015 16:11 [facility] MCHC 34.3 32.1 - 35.9 gm/dl 02/24/2015 16:11 [facility] RDW-CV 12.6 11.7 - 14.6 % 02/24/2015 16:11 [facility] RDW-SD 39.8 37.6 - 50.3 fl 02/24/2015 16:11 [facility] PLT 383(H) 141 - 320 K/cmm 02/24/2015 16:11 [facility] MPV 8.0 7.5 - 11.2 fl 02/24/2015 16:11 [facility] Neutrophils 68.0 45.5 - 79.7 % 02/24/2015 16:54 [facility] Lymphocytes 21.0 15.0 - 46.8 % 02/24/2015 16:54 [facility] % Atyp Lymphs 2.0 % 02/24/2015 16:54 [facility] Monocytes 6.0 1.8 - 12.0 % 02/24/2015 16:54 [facility] Eosinophils 2.0 0.6 - 6.9 % 02/24/2015 16:54 [facility] Basophils 1.0 0.2 - 1.4 % 02/24/2015 16:54 EDT [facility] ABS Neutrophils 12.10(H) 2.20 - 8.85 K/cmm 02/24/2015 16:54 EDT [facility] ABS Lymphs 3.74(H) 1.09 - 3.30 K/cmm 02/24/2015 16:54 EDT [facility] ABS Atyp Lymphs 0.36 K/cmm 5 16:54 T [facility] ABS Monocytes 1.07(H) 0.1 - 0.8 K/cmm 02/24/2015 16:54 T [facility] ABS Eosinophils 0.36 0.03 - 0.61 K/cmm 02/24/2015 16:54 T [facility] ABS Basophils 0.18(H) 0.01 - 0.11 K/cmm 02/24/2015 16:54 T [facility] Vacuolization Present 02/24/2015 16:54 T [facility] Type of Diff: Manual 02/24/2015 16:54 [facility] Blood specimen (specimen) BLOOD SPECIMEN / Unknown 02/24/2015 16:00 EDT 02/24/2015 16:07 EDT us Sonal Rand PA-C PACKAGES & DNA PROBE ORDERA BLES Final Result Performing Organization Address City/State/[facility] Co de Phone Number [facility] [address] [place] [address] * SURGICAL PATHOLOGY (02/24/2015 9:01 EDT) Pathology Report: SURGICAL PATHOLOGY REPORT Reports generated via electronic interface contain original data; however they are lacking the format of the original report. Caution should be taken when reading/interpret ing unformatted reports. Name: ? CRISTY MONTELONGO ? Accession #: ? [id number] ? : ? 1985 (Age: 29) ??F [...] Cruz 02/25/2015 11:33 AM End of Report [facility] 02/24/2015 9:01 EDT 02/24/2015 9:01 EDT us Sonal Rand PA-C PATHOLOGY ORDERABLES Final Result [facility] [address] [place] [address] documented in this encounter Visit Diagnoses Diagnosis [...] 02/24/2015 documented in this encounter Care Teams Shredding Machine Knife Changer Relationship Specialty Start Date End Date None, Provider PCP - General 01/01/15 08/27/15 documented as of this encounter
--- OUTSIDE RECORDS SUMMARY | 2024-05-31 07:37 | XMS_ITS | Encounter Summary ---
Author Organization [facility] Address [address] [place] [address] Care Team Providers Care Um Nurse Name Role Phone Unavailable Primary Care Provider Unavailabl e Encounter Details Date Type Department Care Team (Late st Contact Info) Description 07/28/2006 15:28 EST Hospital Encounter [facility] [address] [place] [address] Elise Vanegas MD [address] [place] [address] Social History Tobacco Use Types Packs/Day Years Used Date Smoking Tobacco: Every Day Cigarettes 0.5 13.6 Started: 11/10/2010 Smokeless Tobacco: Never Comments:06/13/20 actively try ing to quit about 5-8 cigs/day Alcohol Use Standard Drinks/Week Comments Yes 0 (1 standard drink = 0.6 oz pur e alcohol) rarely [facility] Utilities Answer Date Recorded In the past 12 months has [employer], gas, oil, or water [employer] threatened to shut off services in your [...] the past 12 months has th e [employer], gas, oil, or water company threatened to [...]
--- OUTSIDE RECORDS SUMMARY | 2024-05-31 07:37 | XMS_ITS | Encounter Summary ---
Author Organization [facility] Address [address] [place] [address] Care Team Providers Care Grooming Assistant Name Role Phone Unavailable Primary Care Provider Unavailabl e Encounter Details Date Type Department Care Team (Late st Contact Info) Description 05/27/2006 9:45 EST Hospital Encounter [facility] [place] [facility] [address] [place] [address] Fermin Lovett MD Social History Tobacco Use Types Packs/Day Years Used Date Smoking Tobacco: Every Day Cigarettes 0.5 13.6 Started: 11/10/2010 Smokeless Tobacco: Never Comments:06/13/20 actively try ing to quit about 5-8 cigs/day Alcohol Use Standard Drinks/Week Comments Yes 0 (1 standard drink = 0.6 oz pur e alcohol) rarely C Utilities Answer Date Recorded In the past 12 months has [employer], gas, oil, or water company threatened to [...] any time in the past 12 m [facility], were you homeless or living [...]
--- OUTSIDE RECORDS SUMMARY | 2024-05-31 07:37 | XMS_ITS | Encounter Summary ---
Author Organization [facility] Address [address] [place] [address] Care Team Providers Care Animal Attendant Name Role Phone Unavailable Primary Care Provider Unavailabl e Encounter Details Date Type Department Care Team (Latest Contact Info) Description 12/02/2005 17:43 EDT Hospital Encounter [facility] [address] [place] [address] Villa Rodriguez MD Discharge Disposition: Auto Discharge [...]
--- OUTSIDE RECORDS SUMMARY | 2024-05-31 07:37 | XMS_ITS | Encounter Summary ---
Author Organization [facility] Address [address] [place] [address] Care Team Providers Care Senior Windows Engineer Name Role Phone PeytonNimisha martinez Kelly SALON ASSISTANT Primary Care Provider [phone] Reason for Visit * Reason Comments Miscarriage Patient states.10 w eeks and last Tuesday found out no heart beat thus she states, I am having a miscarriage Vaginal bleeding X 1 weeks Lots of cramps Encounter Details Date Type Department Care Team (Late st Contact Info) Description 08/31/2015 14:05 EDT - 08/31/2015 20:53 EDT Emergency [facility] Emergency Department - [address] [id number] Sonal Rand, PA-C [address] [phone] Danny Victoria MD Macnee, Lauren K, PA-Shiva 111 [facility], Level 1 [place] [address] Emergency, MD Ekaterina Miscarriage (Primary [...] Sonal Rand - 08/31/2015 19:32 EDT Call [facility] clinic tomorrow to arrange for follow-up in the next couple of days as instructed by BUILDING SURVEYOR resident Percocet can be used for significant pain but should be used sparingly. Consider using midm-rjl-bwvaejd stool softener if using this medication to [...] 8/10 and sharp. Shewas previously seen at [facility]BGYN clinic and underwent a TVUS [...] D&C. The patient was transfer to a BULLET MAKER bed and was reportedto pass a large [...] Grandmother ??? Diabetes Paternal Grandfather OB History BULLET MAKER History OB History Para Term AB [...] identified. These findings are consistent with demise. BUILDING SURVEYOR consultation and followup with serial beta hCG [...] ED Notes * Charu Tipton PA - 08/31/20158 EDT Received signout from AGUILAR Rand at 8 PM. Patient status post D&C for incomplete with ketamine sedation, tolerating by mouth's, heart rates down to the 90s, stable for discharge. * Homa Goldsmith RN - 08/31/20152051 EDT Pt in NAD at time of d/c, denies pain or nausea. VSS. Reviewed d/c instructions thoroughly with pt and advised her to follow up with BULLET MAKER tomorrow. She verbalizes understanding. * Homa Goldsmith [...] history of DM, miscarriage, migraines who [facility] 10 weeks with a 6 day history of a known pole with no cardiac activity. She underwent suction aspiration for a prior miscarriage in the ED February 2015. [facility] with severe pelvic pain, vomiting [...] Heart rate is abnormal. Negative for murmur. [place] Protocol: risks and benefits discussed consent given [...] 10 weeks [facility] and had 10 week [facility] 6 [...] known miscarriage at 10 weeks Discussed with BUILDING SURVEYOR who recommend repeat ultrasound Ultrasound shows evidence of incomplete Labs unremarkable. Discussed with BUILDING SURVEYOR resident at 6:15, they will perform a suction D&C here under conscious sedation 7:15 PM-procedure is completed, sounds as if patient may have aborted large amount of material justprior to suction procedure. Uncomplicated procedure otherwise She is now recovering from ketamine sedation Remains tachycardic and will continue with IV hydration, now on her third liter. Given Compazine for vomiting Discussed follow-up with BUILDING SURVEYOR resident, she is to contact [facility] SUR[facility] clinic tomorrow morning and alexis arrange for [...] SEDATION PROCEDURE (09/01/2015 0:25 EDT) Narrative [facility] EKG - 09/01/2015 0:25 EDT [...] rate is abnormal. ??Negative for murmur. ? [place] Protocol: risks and benefits discussed consent given [...] PROCEDURE/MINOR SURGICAL OR DERABLES Final Result [facility] EKG * PREPARE RED BLOOD CELLS (08/31/2015 21:22 EDT) Product Code [id number] [facility] BLOOD BANK Comment:E0336 -1 RED BLOOD CELLS, Leukocytes Reduced Donor Number [id number] U [facility] BLOOD BANK Unit ABO B [facility] BLOOD BANK Unit Rh NEG [facility] BLOOD BANK Unit Status RE^Released From Crossmatch [facility] BLOOD BANK Product Expiration Date [id number] [facility] BLOOD BANK Unit Blood Type Code 1700 [facility] BLOOD BANK Coding System [id number] [facility] BLOOD BANK 08/31/2015 21:2 2 EDT us Felicita Espinal MD BLOOD BANK ORDERABLES Final Result Performing Organization Address [facility] de Phone Number [facility] BLOOD BANK [address] [place] [address] * ANTIBODY IDENTIFICATION (08/31/2015 19:17 EDT) Antibody Identification Anti-D; patient recd RhIg [facility] BLOOD BANK 08/31/2015 19:1 7 EDT us Felicita Espinal MD BLOOD BANK TESTS Final Resu lt Performing Organization Address [facility] de Phone Number [facility] BLOOD BANK [address] [place] [address] * RAD US OB LESS THAN 14 [...] identified. These findings are consistent with demise. BUILDING SURVEYOR consultation and followup with serial beta hCG [...] identified. These findings are consistent with demise. BUILDING SURVEYOR consultation and followup with serial beta hCG is suggested. These findings were discussed with SONAL DAWSON by Dr. Zac Benjamin on 08/31/2015 5:30 PM. I have personally reviewed the images and the above interpretation and agree with the findings. us Sonal Rand PA-C IMG US ORDERABLES Final Res ult * TYPE AND SCREEN (08/31/2015 16:20 EDT) ABO B [facility] BLOOD BANK Rh Factor Negative [facility] BLOOD BANK Antibody Screen Positive [facility] BLOOD BANK Specimen Expires: 09/03/2015 @ 23:59 [facility] BLOOD BANK Blood specimen (specimen) 08/31/2015 16:20 EDT us Felicita Espinal MD BLOOD BANK TESTS Final Resu lt Performing Organization Address City/State/[facility] Co de Phone Number [facility] BLOOD BANK [address] [place] [id number] * (ABNORMAL) BASIC METABOLIC PANEL (08/31/2015 14:45 EDT) Sodium 140 136 - 145 mEq/L 08/31/2015 15:17 EDT [facility] Potassium 4.1 3.5 - 5.0 mEq/L 08/31/2015 15:17 EDT [facility] Chloride 106 96 - 110 mEq/L 08/31/2015 15:17 EDT [facility] CO2 24 24 - 32 mEq/L 08/31/2015 15:17 EDT [facility] BUN 9(L) 10 - 26 mg/dl 08/31/2015 15:17 [facility] Creatinine 0.41(L) 0.52 - 1.04 mg/dl 08/31/2015 15:17 [facility] GFR, Calculated 139 >60 ml/min/1.7 3m2 08/31/2015 15:17 [facility] Comment: eGFR calculated using CKD-EPI equation for non Americans. Multiply eGFR by 1.16 for Americans. Calcium 9.7 8.5 - 10.5 mg/dl 08/31/2015 15:17 [facility] Calculated Calcium 10.1 8.5 - 10.5 mg/dl 08/31/2015 15:17 [facility] Glucose, Serum 199(H) 70 - 100 mg/dl 08/31/2015 15:17 [facility] Fasting? Unknown 08/31/2015 15:02 [facility] Blood specimen (specimen) BLOOD SPECIMEN / Unknown 08/31/2015 14:45 EDT 08/31/2015 15:02 EDT us Sonal Rand PA-C CHEMISTRY & BLOOD GAS ORDER HAILEY Final Result [facility] [address] [place] [address] * (ABNORMAL) HEMAGRAM AND DIFFERENTIAL (08/31/2015 14:45 EDT) WBC 18.76(H) 4.0 - 12.4 K/cmm 08/31/2015 15:09 [facility] RBC 4.70 3.86 - 5.04 M/cmm 08/31/2015 15:09 [facility] Hemoglobin 14.3 11.6 - 15.2 gm/dl 08/31/2015 15:09 [facility] HCT 40.4 34.9 - 44.4 % 08/31/2015 15:09 [facility] MCV 86 81 - 98 fl 08/31/2015 15:09 [facility] MCH 30.4 26.7 - 33.3 pg 08/31/2015 15:09 [facility] MCHC 35.4 32.1 - 35.9 gm/dl 08/31/2015 15:09 [facility] RDW-CV 12.2 11.7 - 14.6 % 08/31/2015 15:09 [facility] RDW-SD 38.8 37.6 - 50.3 fl 08/31/2015 15:09 [facility] PLT 421(H) 141 - 377 K/cmm 08/31/2015 15:09 [facility] MPV 9.5 9.5 - 12.7 fl 08/31/2015 15:09 [facility] % Neutrophils 70.6 % 08/31/2015 15:09 [facility] % Lymphocytes 19.8 % 08/31/2015 15:09 [facility] % Monocytes 6.1 % 08/31/2015 15:09 [facility] % Eosinophils 2.6 % 08/31/2015 15:09 [facility] % Basophils 0.4 % 08/31/2015 15:09 [facility] % Immature Grans 0.5 % 08/31/2015 15:09 [facility] ABS Neutrophils 13.26(H) 2.20 - 8.85 K/cmm 08/31/2015 15:09 [facility] ABS Lymphs 3.71(H) 1.09 - 3.30 K/cmm 08/31/2015 15:09 [facility] ABS Monocytes 1.14(H) 0.1 - 0.8 K/cmm 08/31/2015 15:09 [facility] ABS Eosinophils 0.48 0.03 - 0.61 K/cmm 08/31/2015 15:09 [facility] ABS Basophils 0.08 0.01 - 0.11 K/cmm 08/31/2015 15:09 [facility] ABS Immature Grans 0.09(H) 0 - 0.06 K/cmm 08/31/2015 15:09 [facility] Type of Diff: Automated 08/31/2015 15:09 EDT [facility] Blood specimen (specimen) BLOOD SPECIMEN / Unknown 08/31/2015 14:45 EDT 08/31/2015 15:02 EDT us Soanl Rand PA-C PACKAGES & DNA PROBE ORDERA BLES Final Result [facility] [address] [place] [address] documented in this encounter Visit Diagnoses Diagnosis [...] Nini Schultz, MARCELO)1935 (Completed - Provider: Homa Goldsmtih RN) documented in this encounter Orders Medications Ordered That Stan ht Not Have Been Administered Count Last Ordered Date First Ordered Date ketAMINE (KETALAR) 10 mg/mL IV injection 1 08/31/2015 propofol (DIPRIVAN) 10 mg/mL injection 1 Nursing Count Last Ordered Date First Orde red Date INSERT PERIPHERAL IV 1 08/31/2015 documented in this encounter Care Teams Senior Windows Engineer Relationship Specialty Start Date End Date Nimisha Clifton NP 1 [facility] Level [address] [place] [address] PCP - General 08/28/15 03/07/16 documented as of this encounter
--- OUTSIDE RECORDS SUMMARY | 2024-05-31 07:37 | XMS_ITS | Encounter Summary ---
Author Organization [facility] Address [address] [place] [address] Care Team Providers Care Engineer Automated Equipment Name Role Phone None, Provider Primary Care Provider Unavailabl e Encounter Details Date Type Department Care Team (Late st Contact Info) Description 02/11/2015 Results Only [facility]- [facility] [phone] [address] [address] Social History Tobacco Use Types [...] EDT) Antibody Screen Neg 02/11/2015 22:52 EDT [facility] BLOOD SPECIMEN / Unknown 02/11/2015 14:34 EDT 02/11/2015 20:49 EDT Alaina Miranda [facility] BLOOD BANK TESTS Final Result Performing Organization Address City/[facility]/ZIP Co de Phone Number [facility] [address] [place] [address] * BLOOD TYPE FOR PRENATALS- AMBULATORY (02/11/2015 14:34 EDT) ABO and Rh Type B NEG 02/11/2015 22:52 EDT [facility] BLOOD SPECIMEN / Unknown 02/11/2015 14:34 EDT 02/11/2015 20:49 EDT Alaina Miranda [facility] BLOOD BANK ORDERABLES Final Res ult Performing Organization Address [facility] Co de Phone Number [facility] [address] [place] [address] documented in this encounter Visit Diagnoses Not on filedocumented in this encounter Care Teams Engineer Automated Equipment Relationship Specialty Start Date End Date None, Provider PCP - General 01/01/15 08/27/15 documented as of this encounter
--- OUTSIDE RECORDS SUMMARY | 2024-05-31 07:37 | XMS_ITS | Encounter Summary ---
Author Organization [facility] Address [address] [place] [address] Care Team Providers Care Animal Caretaker Supervisor Name Role Phone None, Provider Primary Care Provider Unavailabl e Encounter Details Date Type Department Care Team ([facility] st Contact Info) Description 08/01/2015 10:45 EST - 08/01/2015 10:46 EST Hospital Encounter [address] [address] Kamini Vega MD 111 [facility] [address] [place] [phone] Discharge Disposition: Home or Self Care Social [...] on filedocumented in this encounter Care Teams Animal Caretaker Supervisor Relationship Specialty Start Date End Date None, Provider PCP - General 01/01/15 08/27/15 documented as of this encounter
--- OUTSIDE RECORDS SUMMARY | 2024-05-31 07:37 | XMS_ITS | Encounter Summary ---
Author Organization [facility] Address [address] [place] [address] Care Team Providers Care Die Polisher Name Role Phone Madeline Caputo Primary Care Provider [phone]- [phone] Reason for Visit * Reason Comments Hyperglycemia Pt reports 335 FS at 2100, just dx with DM type 2 after thanksgiving started on metformin. Pt reports BUSH and generally not feeling well Encounter Details Date Type Department Care Team (Late st Contact Info) Description 05/10/2010 22:38 EST - 05/11/2010 0:55 EST Emergency [facility] Emergency Department - [address] [phone] Maj Almanza MD [address] [place] [phone] Doris Moreno MD [address] [place] [address], Level [address] [place] [phone] EmergencyEkaterina MD Hyperglycemia; Bullous myringitis; Bronchitis; Headache [...] 23:40 EST Call endocrine clinic tomorrow at [phone], let them know you were seen in ED and Dr. Mera approved you being seen for expedited New Diabetes appt Continue weight loss efforts Zithromax as prescribed. For second opinion re headaches : call Dr. Poe [phone] For appt. Please return if worsening symptoms or any new concerns. * Attachments The following attachments cannot be sent through Care Everywhere. * BRONCHITIS IN ADULTS: AFTER YOUR VISIT (ZIMBABWEAN) * DIABETES CARE WHEN YOU ARE SICK: AFTER YOUR VISIT (ZIMBABWEAN) * DIABETES DIET GUIDELINES: AFTER YOUR VISIT (ZIMBABWEAN) documented in this encounter Medications at [...] doctors office and was referred to the [place] ED, but pt understood that they refused to see me as they needed to talk to her doctor first. Therefore, she came to [place]. Pt notes recent nasal congestion, cough, and [...] * ELEVATED GLUCOSE (05/10/2010 22:53 EST) Pathologist [facility] Elevated Glucose Screening glucose greater than 180 mg/dl. Please order follow up hemoglobin A1c. [facility] 05/10/2010 22:5 3 EST 05/10/2010 23:36 EST Maj Archie MARTÍNEZ CHEMISTRY & BLOOD GAS ORDERABLES Final Result Performing Organization Address City/[facility]/ZIP Co de Phone Number [facility] [address] [place] [address] * (ABNORMAL) HEMAGRAM AND DIFFERENTIAL (05/10/2010 22:53 EST) Pathologist [facility] WBC 11.56 4.0 - 12.4 K/cmm MICHAEL [...] PROBE ORDERABLES Final Result Performing Organization Address [facility] de Phone Number [facility] [address] [place] [address] * (ABNORMAL) SCREENING GLUCOSE (05/10/2010 22:53 EST) Glucose, Screening 238(H) 70 - 100 mg/dl [facility] Blood specimen (specimen) 05/10/2010 22:53 EST 05/10/2010 23:36 EST Maj Archie MARTÍNEZ CHEMISTRY & BLOOD GAS ORDERABLES Final Result Performing Organization Address [facility] de Phone Number [facility] [address] [place] [address] * CREATININE (05/10/2010 22:53 EST) Creatinine 0.80 0.7 - 1.5 mg/dl [facility] GFR, Calculated >60 ml/min/1.7 3m2 [facility] Blood specimen (specimen) 05/10/2010 22:53 EST 05/10/2010 23:36 EST us Maj Archie MARTÍNEZ CHEMISTRY & BLOOD GAS ORDERABLES Final Result Performing Organization Address [facility] de Phone Number [facility] [address] [place] [address] * BUN (05/10/2010 22:53 EST) BUN 12 10 - 26 mg/dl [facility] Blood specimen (specimen) 05/10/2010 22:53 EST 05/10/2010 23:36 EST us Maj Archie MARTÍNEZ CHEMISTRY & BLOOD GAS ORDERABLES Final Result Performing Organization Address [facility] de Phone Number [facility] [address] [place] [address] * ELECTROLYTES (05/10/2010 22:53 EST) Sodium 138 136 - 145 mEq/L [facility] Potassium 4.4 3.5 - 5.0 mEq/L [facility] Chloride 98 96 - 110 mEq/L [facility] CO2 29 24 - 32 mEq/L [facility] Blood specimen (specimen) 05/10/2010 22:53 EST 05/10/2010 23:36 EST Maj Archie MARTÍNEZ CHEMISTRY & BLOOD GAS ORDERABLES Final Result Performing Organization Address [facility] Phone Number [facility] [address] [place] [address] documented in this encounter Visit Diagnoses Diagnosis [...] 05/10 documented in this encounter Care Teams Die Polisher Relationship Specialty Start Date End Date Madeline Caputo PA [address] [place] [id number] PCP - General 05/10/10 12/31/14 documented as of this encounter
--- OUTSIDE RECORDS SUMMARY | 2024-05-31 07:38 | XMS_ITS | Encounter Summary ---
Author Organization [facility] Address [address] [place] [address] Care Team Providers Care Over The Road Driver Name Role Phone Unavailable Primary Care Provider Unavailabl e Encounter Details Date Type Department Care Team (Late st Contact Info) Description 08/19/2004 16:02 [facility] Hospital Encounter [facility] - Other [address] [place] [address] Rosalio Bueno MD [address] [phone] Social History Tobacco Use Types Packs/Day Years Used Date Smoking Tobacco: Every Day Cigarettes 0.5 13.6 Started: 11/10/2010 Smokeless Tobacco: Never Comments:06/13/20 actively try ing to quit about 5-8 cigs/day Alcohol Use Standard Drinks/Week Comments Yes 0 (1 standard drink = 0.6 oz pur e alcohol) rarely C Utilities Answer Date Recorded In the past 12 months has [employer], gas, oil, or water [employer] threatened to shut off services in your [...] the past 12 months has th e [employer], gas, oil, or water [employer] threatened to shut off services in your [...]
--- OUTSIDE RECORDS SUMMARY | 2024-05-31 07:38 | XMS_ITS | Encounter Summary ---
Author Organization [facility] Address [address] [place] [address] Care Team Providers Care Leather Production Artisan Name Role Phone Unavailable Primary Care Provider Unavailabl e Encounter Details Date Type Department Care Team (Latest Contact Info) Description 04/02/2004 17:44 EDT Hospital Encounter [facility] - Other [address] [place] [address] Rigo Rosenbaum MD [address] [place] [phone] Discharge Disposition: Auto Discharge Social History [...]
--- OUTSIDE RECORDS SUMMARY | 2024-05-31 07:38 | XMS_ITS | Encounter Summary ---
Author Organization [facility] Address [address] [place] [address] Care Team Providers Care Continuous Process Coffee Roaster Name Role Phone Jasmin Jara Primary Care Provider Unavail Trinity Wilson MD Primary Care Provider Encounter Details Date Type Department Care Team (Late st Contact Info) Description 08/19/2004 Results Only [facility] Family Medicine [address] [address] Rosalio Bueno MD [address] [phone] Social History Tobacco Use Types [...] ORDERAB LES Final Result Performing Organization Address [facility] Co de Phone Number [facility] [address] [place] [address] * (ABNORMAL) HEMAGRAM (08/19/2004 15:37 EST) WBC [...] ORDERABLES F inal Result Performing Organization Address City/[facility] Co de Phone Number [facility] [address] [place] [address] documented in this encounter Visit Diagnoses Not on filedocumented in this encounter Care Teams Continuous Process Coffee Roaster Relationship Specialty Start Date End Date Jasmin Jara PA PCP - General 10/06/09 05/09/10 Trinity Samaniego MD [address] [place] [phone] PCP - General 09/16/09 10/05/09 documented as of this encounter
--- OUTSIDE RECORDS SUMMARY | 2024-05-31 07:38 | XMS_ITS ---
Author Organization Unknown Address [address] [place] [address] [phone] Phone Care Team Providers Care Product Marketing Consultant Name Role Phone OLIVE KING Registered Nurse Unavailable Unavailable Xwatchlist Unavailable ROSA ISELA Judge Attending Unavailable RUL[facility] Unavailable LORIN Jung Primary Unavailable UNLISTED PROVIDER - REQUESTED Xhandoff Un available Results NOVA GLUCOSE FINGER HEEL CAP ILLARY - Collect Date/Time: 01/07/2024 07:46 [facility] ID: [id number] [address] [place] [address], [id number] LOINC: 73581-7 Test Value Unit Reference Range Code Code System Flag GLUCOSE CAP 214 mg/dL L=70 H=116 49479-2 LOINC H MAGNESIUM SERUM* - Collect D ate/Time: 01/07/2024 07:05 [facility] ID: [id number] [address] [place] [address], [address] LOINC: 24961-6 Test Value Unit Reference Range Code Code System Flag MAGNESIUM 2.0 mg/dL L=1.8 H=2.4 31709-6 LOINC BASIC METABOLIC PANEL (BMP) - Collect Date/Time: 01/07/2024 07:05 [facility] ID: [id number] - [id number] [address] [place] [address], [address] LOINC: 52830-3 Test Value Unit Reference Range Code Code [...] H=34 2028-9 LOINC ANION GAP 12.1 mmol/L 36969-3 LOINC CALCIUM SERUM 8.6 mg/dL L=8.2 H=10.2 25978-9 LOINC AGE 38 years eGFR (non-Afr.Amer.) 104 mL/min 57261-1 LOINC eGFR (Afr-Nicaraguan) > 120 mL/min 65219-5 LOINC CBC W/ DIFFERENTIAL* - Colle ct Date/Time: 01/07/2024 07:05 [facility] ID: [id number] - [id number] [address] [place], [place], [address] LOINC: 60075-7 Test Value Unit Reference Range Code Code System Flag WBC 16.49 th/cmm L=5.00 H=10.00 6690-2 LOINC H NEUT % 65.2 % L=40.0 H=80.0 LYMPH % 26.0 % L=10.0 H=50.0 MONO % 7.0 % L=2.0 H=12.0 76917-5 LOINC EOS % 1.2 % L=0.0 H=8.0 BASO % 0.2 % L=0.0 H=3.0 IG % 0.4 % L=0.0 H=1.1 2514-8 LOINC NRBC % 0.0 % L=0.0 H=0.0 24307-5 LOINC NEUT abs count 10.8 th/cmm L=1.6 H=8.4 751-8 LOINC H LYMPH abs count 4.3 th/cmm L=1.5 H=4.0 731-0 LOINC H MONO abs count 1.2 th/cmm L=0.2 H=1.0 742-7 LOINC H EOS abs count 0.2 th/cmm L=0.0 H=0.5 711-2 LOINC BASO abs count 0.0 th/cmm L=0.0 H=0.2 704-7 LOINC IG abs count 0.1 th/cmm L=0.0 H=0.1 24443-7 LOINC NRBC abs count 0.0 mil/cmm L=0.0 H=0.0 93319-2 LOINC RBC 4.12 mil/cmm L=3.90 H=5.40 789-8 [...] CAP ILLARY - Collect Date/Time: 01/06/2024 20:49 [facility] ID: [id number] - [id number] [address] [place], [place], [id number] LOINC: 79098-6 Test Value Unit Reference Range Code Code System Flag GLUCOSE CAP 239 mg/dL L=70 H=116 84451-9 LOINC H LACTIC ACID - Collect Date/T nestor: 01/06/2024 13:30 [facility] ID: [id number] [address] [place], [place], [address] LOINC: Test Value Unit Reference Range Code Code System Flag LACTIC ACID 1.8 mmol/L L=0.7 H=2.1 28925-2 LOINC NOVA GLUCOSE FINGER HEEL CAP ILLARY - Collect Date/Time: 01/06/2024 12:54 [facility] ID: [id number] - [id number] [facility] [place], [place], [id number] LOINC: 33155-2 Test Value Unit Reference Range Code Code System Flag GLUCOSE CAP 329 mg/dL L=70 H=116 17361-9 LOINC H DRUG SCN 13 PANEL (MEDTOX)* - Collect Date/Time: 01/06/2024 12:15 [facility] ID: [id number] [address] [place], [place], [id number] LOINC: 41976-6 Test Value Unit Reference Range Code Code System Flag CANNABINOIDS POSITIVE Cutoff = 50 ng/mL 49933-4 LOINC A PHENCYCLIDINE NEGATIVE Cutoff = 25 ng/mL 07734-2 LOINC COCAINE NEGATIVE Cutoff = 150 ng/mL 20142-3 LOINC METHAMPHETAMINES NEGATIVE Cutoff = 50 0 ng/mL 63337-7 LOINC OPIATES NEGATIVE Cutoff = 100 ng/mL 82938-2 LOINC AMPHETAMINES NEGATIVE Cutoff = 500 ng/mL 21553-1 LOINC BENZODIAZEPINES NEGATIVE Cutoff = 150 ng/mL 96684-6 LOINC TRICYCLIC ANTIDEP NEGATIVE Cutoff = 3 00 ng/mL 3533-7 LOINC METHADONE NEGATIVE Cutoff = 200 ng/mL 10646-5 LOINC BARBITURATES NEGATIVE Cutoff = 200 ng/mL 90630-1 LOINC OXYCODONE POSITIVE Cutoff = 100 ng/mL 13271-2 LOINC A BUPRENORPHINE NEGATIVE Cutoff = 10 mg/mL 3414-0 LOINC URINALYSIS WITH MICROSCOPIC* - Collect Date/Time: 01/06/2024 12:15 [facility] ID: [id number] - [id number] [address] [place], [place], [address] LOINC: 76424-9 Test Value Unit Reference Range Code Code System Flag COLLECTION MODE: CLEAN CATCH 46770-0 LOINC Color YELLOW yellow 5778-6 LOINC Appearance HAZY clear 5767-9 LOINC Glucose urine >=1000 negative mg/dl 02377-1 LOINC A Bilirubin NEGATIVE negative 5770-3 LOINC Ketones >=80 negative mg/dl 2514-8 LOINC A Spec gravity 1.025 1.003 - 1.030 5811-5 LOINC pH urine 5.5 5.0 - 7.0 2756-5 LOINC Protein TRACE negative mg/dl 06488-5 LOINC Urobilinogen 0.2 <or= 1 EU/dl 38119-0 LOINC Nitrite NEGATIVE negative 5802-4 LOINC Blood TRACE-IN negative 5794-3 LOINC A Leukocytes NEGATIVE negative 83324-4 LOINC WBCs 0-5 0-5 / hpf 81735-2 LOINC RBCs 0-5 0-5 / hpf 50765-0 LOINC Epith cells 5-10 0-5 / hpf 86889-0 LOINC Cell types squamous Crystals none none Bacteria none none Mucus none none Casts none none /lpf Other KETONES QUAL - Collect Date/ Time: 01/06/2024 11:15 [facility] ID: [id number] [address] [place], [place], [address] LOINC: 5567-3 Test Value Unit Reference Range Code Code System Flag ACETONE SMALL 5567-3 INC CBC W/ DIFFERENTIAL* - Colle ct Date/Time: 01/06/2024 11:15 [facility] ID: [id number] [address] [place] [address], [address] LOINC: 37900-6 Test Value Unit Reference Range Code Code System Flag WBC 15.83 th/cmm L=5.00 H=10.00 6690-2 LOINC H NEUT % 87.2 % L=40.0 H=80.0 H LYMPH % 10.4 % L=10.0 H=50.0 MONO % 1.5 % L=2.0 H=12.0 00590-2 LOINC L EOS % 0.1 % L=0.0 H=8.0 BASO % 0.4 % L=0.0 H=3.0 IG % 0.4 % L=0.0 H=1.1 2514-8 LOINC NRBC % 0.0 % L=0.0 H=0.0 70498-5 LOINC NEUT abs count 13.8 th/cmm L=1.6 H=8.4 751-8 LOINC H LYMPH abs count 1.7 th/cmm L=1.5 H=4.0 731-0 LOINC MONO abs count 0.2 th/cmm L=0.2 H=1.0 742-7 LOINC EOS abs count 0.0 th/cmm L=0.0 H=0.5 711-2 LOINC BASO abs count 0.1 th/cmm L=0.0 H=0.2 704-7 LOINC IG abs count 0.1 th/cmm L=0.0 H=0.1 29521-4 LOINC NRBC abs count 0.0 mil/cmm L=0.0 H=0.0 72414-8 LOINC RBC 4.16 mil/cmm L=3.90 H=5.40 789-8 [...] RATE* - Collect Date/Jona e: 01/06/2024 11:15 [facility] ID: [id number] [address] [place] [address], [address] LOINC: 4537-7 Test Value Unit Reference Range Code Code System Flag SED. RATE 96 mm/hr L=0 H=20 4537-7 LOINC H C REACTIVE PROTEIN HIGH SENS ITIVITY* - Collect Date/Time: 01/06/2024 11:15 [facility] ID: [id number] - [id number] [address] [place] [address], [address] LOINC: 31982-9 Test Value Unit Reference Range Code Code System Flag CRP-HIGH SENS. 64.92 mg/L L=0.00 H=3.00 16458-3 LOINC H CRP-HIGH SENS 6.49 mg/dL L=0.00 H=0.30 56523-9 LOINC H SALICYLATE SERUM* - Collect Date/Time: 01/06/2024 11:15 [facility] ID: [id number] [address] [place] [address], [address] LOINC: 4024-6 Test Value Unit Reference Range Code Code System Flag SALICYLATE 4.9 mg/dL L=15.0 H=30.0 4024-6 LOINC L ACETAMINOPHEN* - Collect Norm e/Time: 01/06/2024 11:15 [facility] ID: [id number] [address] [place] [address], [address] LOINC: 3298-7 Test Value Unit Reference Range Code Code System Flag ACETAMINOPHEN < 2.0 ug/mL L=10.0 H=20.0 3298-7 LOINC L ALCOHOL (ETHANOL)* - Collect Date/Time: 01/06/2024 11:15 [facility] ID: [id number] [address] [place] [address], [address] LOINC: 08226-6 Test Value Unit Reference Range Code Code System Flag ALCOHOL (ETHANOL) 3 mg/dL 55127-5 LOINC PHOSPHORUS SERUM - Collect D ate/Time: 01/06/2024 11:15 [facility] ID: [id number] [address] [place] [address], [id number] LOINC: 2777-1 Test Value Unit Reference Range Code Code System Flag PHOSPHORUS SERUM 3.3 mg/dL L=2.2 H=4.2 MAGNESIUM SERUM* - Collect D ate/Time: 01/06/2024 11:15 [facility] ID: [id number] [address] [place] [address], [address] LOINC: 72397-8 Test Value Unit Reference Range Code Code System Flag MAGNESIUM 1.6 mg/dL L=1.8 H=2.4 88467-6 LOINC L OSMOLALITY SERUM - Collect D ate/Time: 01/06/2024 11:15 [facility] ID: [id number] - [id number] [address] [place], [place], [id number] LOINC: 2692-2 Test Value Unit Reference Range Code Code System Flag Osmolality 308 275-295 H LACTIC ACID - Collect Date/T nestor: 01/06/2024 11:15 [facility] ID: [id number] [address] [place] [address], [address] LOINC: Test Value Unit Reference Range Code Code System Flag LACTIC ACID 2.7 mmol/L L=0.7 H=2.1 49824-8 LOINC H COMPREHENSIVE METABOLIC PANE L (CMP) - Collect Date/Time: 01/06/2024 11:15 [facility] ID: [id number] - [id number] [address] [place], [place], [address] LOINC: 44494-1 Test Value Unit Reference Range Code Code [...] H=34 2028-9 LOINC ANION GAP 15.1 mmol/L 79709-2 LOINC CALCIUM SERUM 8.8 mg/dL L=8.2 H=10.2 39704-3 LOINC BILIRUBIN TOTAL 0.3 mg/dL L=0.0 H=1.3 1975-2 LOINC ALK. PHOS. 121 U/L L=46 H=116 6768-6 LOINC H SGOT (AST) 13 U/L L=15 H=37 1920-8 LOINC L SGPT (ALT) 18 U/L L=12 H=78 1742-6 LOINC TOTAL PROTEIN 7.7 gm/dL L=6.0 H=8.0 2885-2 LOINC ALBUMIN 2.8 gm/dL L=3.4 H=5.0 1751-7 LOINC L AGE 38 years eGFR (non-Afr.Amer.) 85 mL/min 36868-2 LOINC eGFR (Afr-Nicaraguan) 103 mL/min 43598-7 LOINC ORDER VENOUS BLOOD GAS* - Co llect Date/Time: 01/06/2024 11:10 [facility] ID: [id number] [address] [place] [address], [id number] LOINC: Test Value Unit Reference Range Code [...] CAP ILLARY - Collect Date/Time: 01/06/2024 11:07 [facility] ID: [id number] [address] [place] [address], [id number] LOINC: 15651-1 Test Value Unit Reference Range Code Code System Flag GLUCOSE CAP 342 mg/dL L=70 H=116 47729-8 LOINC H Social History Type Status Start Date End Date Code Code Syst em Sex Female Vital Signs Vital Sign Value Unit Callahan Value Callahan Unit Date/Time Recent/Initial? Code Code System Body Mass Index 37.08 kg/m2 01/06/2024 13:53 Initial 12101 -5 [facility] Systolic Blood Pressure 132 mm[Hg] 01/07/2024 03:48 Most Recent 8480- 6 [facility] Diastolic Blood Pressure 87 mm[Hg] 01/07/2024 03:48 Most Recent 8462- 4 [facility] Systolic Blood Pressure 153 mm[Hg] 01/06/2024 11:09 Initial 8480- 6 [facility] Diastolic Blood Pressure 90 mm[Hg] 01/06/2024 11:09 Initial 8462- 4 [facility] Body Surface Area 2.10 m2 01/06/2024 13:53 Initial 3140- 1 [facility] Height 162.560 0 cm 64.00 in 01/06/2024 13:53 Initial 8302- 2 [facility] O2 Saturation 96 % 2023 05:08 Most Recent 01205 -5 [facility] O2 Saturation 100 % 2023 11:09 Initial 95226 -5 [facility] Inhaled Oxygen Flow Rate 4.00 L/min 01/06/2024 11:30 Initial 3151- 8 [facility] Pulse 113.0 /min 01/07/2024 05:08 Most Recent 8867- 4 [facility] Pulse 110.0 /min 01/06/2024 11:09 Initial 8867- 4 [facility] Respiration 22 /min 01/07/20 24 05:08 Most Recent 9279- 1 [facility] Respiration 12 /min 01/06/20 24 11:09 Initial 9279- 1 [facility] Temperature 37.9 Mesha 100.2 F 01/07/20 24 03:48 Most Recent 8310- 5 [facility] Temperature 36.2 Mesha 97.2 F 01/06/20 24 11:09 Initial 8310- 5 [facility] Weight 97.98 kg 216.00 lbs 01/06/2024 13:53 Initial 43677 -7 [facility] Medications Medication Start Date End Date Route Frequency Dose Code Code System Medication Instructions Home Meds Bactrim DS 800MG-160MG Oral Tablet 01/07/2024 Unknown ORAL TWICE A DAY 1 unit(s) 752272 RxNorm TAKE 1 EACH ORAL TWICE A DAY DULoxetine HCl 40MG Oral Capsule, Delayed Release 01/07/2024 Unknown ORAL DAILY 40 MILLIGRAMS 185936 RxNorm TAKE 40 MILLIGRAM S ORAL DAILY Gabapentin 300MG Oral Capsule 01/07/2024 Unknown ORAL DAILY 300 MILLIGRAMS 965847 RxNorm TAKE 300 MILLIGRAM S ORAL DAILY Gabapentin 300MG Oral Tablet 01/07/2024 Unknown ORAL BEDTIME 1200 MILLIGRAMS 8491622 RxNorm TAKE 1200 MILLIGRAM S ORAL BEDTIME Januvia 25MG Oral Tablet 01/07/2024 Unknown ORAL DAILY 25 MILLIGRAMS 240525 RxNorm TAKE 25 MILLIGRAM S ORAL DAILY Jardiance 10MG Oral Tablet 01/07/2024 Unknown ORAL DAILY 10 MILLIGRAMS 3382898 RxNorm TAKE 10 MILLIGRAM S ORAL DAILY Lantus SoloStar 100U/1ML Subcutaneous Solution 01/07/2024 Unknown SUBCUTAN EOUS BEDTIME 40 UNIT RxNorm INJECT 40 UNIT SUBCUTANE OUS BEDTIME Lidocaine 5% Topical application Patch, Extended Release 01/07/2024 Unknown TOPICAL APPLICAT ION DAILY 1 unit(s) 6462430 RxNorm 1 EACH TOPICAL APPLICATI ON DAILY Omeprazole 40MG Oral Capsule, Delayed Release 01/07/2024 Unknown ORAL DAILY 40 MILLIGRAMS 145228 RxNorm TAKE 40 MILLIGRAM S ORAL DAILY Ondansetron 4MG Oral Tablet, Disintegrating 01/07/2024 Unknown ORAL NEEDED EVERY 6 HOURS 4 MILLIGRAMS 715037 RxNorm TAKE 4 MILLIGRAM S ORAL NEEDED EVERY 6 HOURS Reglan 10MG Oral Tablet 01/07/2024 Unknown ORAL NEEDED EVERY 6 HOURS 10 MILLIGRAMS 637225 RxNorm TAKE 10 MILLIGRAM S ORAL NEEDED EVERY 6 HOURS insulin aspart 100U/1ML Injection Solution 01/07/2024 Unknown INJECTIO N THREE TIMES A DAY 1 UNIT 092828 RxNorm 1 UNIT INJECTION THREE TIMES A DAY oxyCODONE HCl-acetaminoph en 5MG-325MG Oral Tablet 01/07/2024 Unknown ORAL NEEDED EVERY 6 HOURS 1 TABLET 2327531 RxNorm TAKE 1 TABLET ORAL NEEDED EVERY 6 HOURS traMADol HCl 50MG Oral Tablet 01/07/2024 Unknown ORAL NEEDED EVERY 6 HOURS 50 MILLIGRAMS 621287 RxNorm TAKE 50 MILLIGRAM S ORAL NEEDED EVERY 6 HOURS traZODone hydrochloride 50MG Oral Tablet 01/07/2024 Unknown ORAL BEDTIME 50 MILLIGRAMS 054969 RxNorm TAKE 50 MILLIGRAM S ORAL BEDTIME [...] Syste m Amputation of left foot completed [id number] S NOMEDCT Problems Problem Start Date Resolved Date Status Code Code System NAUSEA active 845959163 SNOMED-CT VOMITING active 694922669 SNOMED-CT GASTROPARESIS WITH DM active 05170951 4 SNOMED-CT T2DM active 12683906 SNOMED-CT DIABETES TYPE I 01/06/2024 resolved 28132646 SNO MED-CT GASTROPARESIS 01/06/2024 resolved 838227549 SNOME D-CT Allergies and Adverse Reactions Allergy Substance Reaction Severity Start Date Concern Status Co de Code System No Known Drug Allergies Active 470367750 SNOMED-CT Plan of Treatment Plan # Nausea, vomiting, status post transmetatarsal amputation 01/03/2024. # History of gastroparesis # AMS presentation in ED with improvement with Narcan IV fluid while vomiting, advance diet as tolerated. Encourage fluids, ice chips slowly. Serial laboratory monitoring. Replete electrolytes as needed. Continue previously prescribed Bactrim DS by engineering test specialist at [facility] Limit narcotics as much as possible to breakthrough pain, IV Tylenol TID Ondansetron and metoclopramide for nausea management Decrease gabapentin PM dose and hold trazodone and tramadol due to AMS presentation in ED [facility] consult-->Dr. Carvalho saw patient in ED, [...] Date Inactive Da te Discharge Summary Notes [facility] 01/07/2024 10:36 Patient Name: CATARINA [...] for neuropathic full-thickness ulcer and cellulitis at [facility], gastroparesis, migraines, anxiety, depression, chronic low back pain, presents to the emergency department for complaints of nausea and vomiting today. patient was seen by engineering test specialist yesterday at [facility] and her recent surgical site showed increased [...] IV. patient's left foot wound evaluated by [facility] as well as hospital medicine and will hold further IV antibiotics and start prescribed Bactrim DS per [facility] podiatry. Patient will be admitted to [...] alert and oriented History and Physical Notes [facility] 01/06/2024 18:35 Patient Name Age [...] for neuropathic full-thickness ulcer and cellulitis at [facility], gastroparesis, migraines, anxiety, depression, chronic low back pain, presents to the emergency department for complaints of nausea and vomiting today. patient was seen by engineering test specialist yesterday at [facility] and her recent surgical site showed increased [...] IV. patient's left foot wound evaluated by [facility] as well as hospital medicine and will hold further IV antibiotics and start prescribed Bactrim DS per [facility] podiatry. Patient will be admitted to [...] needed. Continue previously prescribed Bactrim DS by engineering test specialist at [facility] Limit narcotics as much as possible to breakthrough pain, IV Tylenol TID Ondansetron and metoclopramide for nausea management Decrease gabapentin PM dose and hold trazodone and tramadol due to AMS presentation in ED [facility] consult-->Dr. Carvalho saw patient in ED, [...]
--- OUTSIDE RECORDS SUMMARY | 2024-05-31 07:38 | XMS_ITS | Encounter Summary ---
Author Organization [facility] Address [address] [place] [address] Care Team Providers Care Trustee Of Estate Name Role Phone Unavailable Primary Care Provider Unavailabl e Encounter Details Date Type Department Care Team (Late st Contact Info) Description 09/21/2005 7:24 EDT - 09/21/2005 11:59 EDT Hospital Encounter [facility] [address] [place] [address] Nathaniel Argueta MD [address] [facility] [address] [place] [phone] Discharge Disposition: Auto Discharge Social History Tobacco [...] were discussed with the patient by the boiler water tester at the time of the exam. OVERALL [...] were discussed with the patient by the boiler water tester at the time of the exam. OVERALL ASSESSMENT - NEGATIVE END OF IMPRESSION us Nathaniel Karely Argueta MD IMG US ORDERABLES Final Result documented in this encounter Visit Diagnoses Not on filedocumented in this encounter
--- OUTSIDE RECORDS SUMMARY | 2024-05-31 07:38 | XMS_ITS | Encounter Summary ---
Author Organization [facility] Address [address] [place] [address] Care Team Providers Care Network Firewall Engineer Name Role Phone Unavailable Primary Care Provider Unavailabl e Encounter Details Date Type Department Care Team (Late st Contact Info) Description 03/31/2005 1:30 EDT Hospital Encounter [facility] - Other [address] [place] [address] Bhupendra Mayo MD 111 [facility] [address] [place] [phone] Social History Tobacco Use Types Packs/Day Years Used Date Smoking Tobacco: Every Day Cigarettes 0.5 13.6 Started: 11/10/2010 Smokeless Tobacco: Never Comments:06/13/20 actively try ing to quit about 5-8 cigs/day Alcohol Use Standard Drinks/Week Comments Yes 0 (1 standard drink = 0.6 oz pur e alcohol) rarely [facility] Utilities Answer Date Recorded In the past 12 months has [employer], gas, oil, or water [employer] threatened to shut off services in your [...] the past 12 months has th e [employer], gas, oil, or water [employer] threatened to shut off services in your [...] ORDERABLES Final Result [facility] [address] [place] [address] documented in this encounter Visit Diagnoses Not on filedocumented in this encounter Additional Health Concerns Infection Onset Date Last Indicated Resolved Time R/O COVID-19 08/04/2020 08/04/2020 08/04/2020 11:4 0 EST documented as of this encounter
--- OUTSIDE RECORDS SUMMARY | 2024-05-31 07:38 | XMS_ITS | Encounter Summary ---
Author Organization [facility] Address [address] [place] [address] Care Team Providers Care Paver Layer Name Role Phone Unavailable Primary Care Provider Unavailabl e Encounter Details Date Type Department Care Team (Late st Contact Info) Description 01/27/2004 Office Visit [facility] [address] [place] [address] Samira Fong MD [address] [place] [phone] Social History Tobacco Use Types Packs/Day Years [...] SOCIAL HISTORY Nonsmoker. FAMILY HISTORY works at [employer] ADDITIONAL NOTES The nursing notes have been [...] hot water. Pain level now: 11/13. Treatment STOVE FITTER: ice and (arrives with dressing on right [...] The patientwas discharged home and accompanied by press cutter. The patient left the Emergency Department ambulatory and via private vehicle. Departure time: 14:31 --1431 Rob Cardoso R.N. Locked/Released at 01/26/2004 14:31 by Lara Sparks R.N. documented in this encounter Plan of Treatment Not on file documented as of this encounter Visit Diagnoses Not on filedocumented in this encounter
--- OUTSIDE RECORDS SUMMARY | 2024-05-31 07:38 | XMS_ITS | Encounter Summary ---
Author Organization [facility] Address [address] [place] [address] Care Team Providers Care In Store Marketing Associate Name Role Phone Unavailable Primary Care Provider Unavailabl e Encounter Details Date Type Department Care Team (Late st Contact Info) Description 01/26/2004 12:26 EDT Hospital Encounter [address] [address] Samira Fong MD [address] [place] [address] Social History Tobacco Use Types Packs/Day Years Used Date Smoking Tobacco: Every Day Cigarettes 0.5 13.6 Started: 11/10/2010 Smokeless Tobacco: Never Comments:06/13/20 actively try ing to quit about 5-8 cigs/day Alcohol Use Standard Drinks/Week Comments Yes 0 (1 standard drink = 0.6 oz pur e alcohol) rarely [facility] Utilities Answer Date Recorded In the past 12 months has [employer], gas, oil, or water [employer] threatened to shut off services in your [...] your living situation today? I have a [facility] place to live 04/03/2024 Think about [...] the past 12 months has th e [employer], gas, oil, or water [employer] threatened to shut off services in your [...]
--- OUTSIDE RECORDS SUMMARY | 2024-05-31 07:38 | XMS_ITS ---
Author Organization Unknown Address [address] [place] [address] [phone] Phone Care Team Providers Care Cementer Oil Well Name Role Phone ROSA ISELA Judge Attending Unavailable Social History Type Status Start Date End Date Code Code Syst em Sex Female Medications Medication Start Date End Date Route Frequency Dose Code Code System Medication Instructions Home Meds Bactrim DS 800MG-160MG Oral Tablet 01/07/2024 Unknown ORAL TWICE A DAY 1 unit(s) 124268 RxNorm TAKE 1 EACH ORAL TWICE A DAY DULoxetine HCl 40MG Oral Capsule, Delayed Release 01/07/2024 Unknown ORAL DAILY 40 MILLIGRAMS 051975 RxNorm TAKE 40 MILLIGRAM S ORAL DAILY Gabapentin 300MG Oral Capsule 01/07/2024 Unknown ORAL DAILY 300 MILLIGRAMS 580607 RxNorm TAKE 300 MILLIGRAM S ORAL DAILY Gabapentin 300MG Oral Tablet 01/07/2024 Unknown ORAL BEDTIME 1200 MILLIGRAMS 5491010 RxNorm TAKE 1200 MILLIGRAM S ORAL BEDTIME Januvia 25MG Oral Tablet 01/07/2024 Unknown ORAL DAILY 25 MILLIGRAMS 320432 RxNorm TAKE 25 MILLIGRAM S ORAL DAILY Jardiance 10MG Oral Tablet 01/07/2024 Unknown ORAL DAILY 10 MILLIGRAMS 3541865 RxNorm TAKE 10 MILLIGRAM S ORAL DAILY Lantus SoloStar 100U/1ML Subcutaneous Solution 01/07/2024 Unknown SUBCUTAN EOUS BEDTIME 40 UNIT RxNorm INJECT 40 UNIT SUBCUTANE OUS BEDTIME Lidocaine 5% Topical application Patch, Extended Release 01/07/2024 Unknown TOPICAL APPLICAT ION DAILY 1 unit(s) 4401559 RxNorm 1 EACH TOPICAL APPLICATI ON DAILY Omeprazole 40MG Oral Capsule, Delayed Release 01/07/2024 Unknown ORAL DAILY 40 MILLIGRAMS 543926 RxNorm TAKE 40 MILLIGRAM S ORAL DAILY Ondansetron 4MG Oral Tablet, Disintegrating 01/07/2024 Unknown ORAL NEEDED EVERY 6 HOURS 4 MILLIGRAMS 194119 RxNorm TAKE 4 MILLIGRAM S ORAL NEEDED EVERY 6 HOURS Reglan 10MG Oral Tablet 01/07/2024 Unknown ORAL NEEDED EVERY 6 HOURS 10 MILLIGRAMS 433289 RxNorm TAKE 10 MILLIGRAM S ORAL NEEDED EVERY 6 HOURS insulin aspart 100U/1ML Injection Solution 01/07/2024 Unknown INJECTIO N THREE TIMES A DAY 1 UNIT 804240 RxNorm 1 UNIT INJECTION THREE TIMES A DAY oxyCODONE HCl-acetaminoph en 5MG-325MG Oral Tablet 01/07/2024 Unknown ORAL NEEDED EVERY 6 HOURS 1 TABLET 3419942 RxNorm TAKE 1 TABLET ORAL NEEDED EVERY 6 HOURS traMADol HCl 50MG Oral Tablet 01/07/2024 Unknown ORAL NEEDED EVERY 6 HOURS 50 MILLIGRAMS 135934 RxNorm TAKE 50 MILLIGRAM S ORAL NEEDED EVERY 6 HOURS traZODone hydrochloride 50MG Oral Tablet 01/07/2024 Unknown ORAL BEDTIME 50 MILLIGRAMS 962214 RxNorm TAKE 50 MILLIGRAM S ORAL BEDTIME [...] Date Status Code Code System NAUSEA active 556699667 SNOMED-CT VOMITING active 877370782 SNOMED-CT GASTROPARESIS WITH DM active 03043819 4 SNOMED-CT T2DM active 70498474 SNOMED-CT DIABETES TYPE I 01/06/2024 resolved 22498268 SNO MED-CT GASTROPARESIS 01/06/2024 resolved 462425968 SNOME D-CT Allergies and Adverse Reactions Allergy Substance Reaction Severity Start Date Concern Status Co de Code System No Known Drug Allergies Active 511244210 SNOMED-CT Plan of Treatment No Data Found Encounters Encounter Diagnosis Start Date Code Code Sys tem Vomiting, unspecified 01/06/2024 SNOMED -CT Personal Care Team Section Performer Name Performer Role Active Date Inactive Da te
--- OUTSIDE RECORDS SUMMARY | 2024-05-31 07:38 | XMS_ITS | Encounter Summary ---
Author Organization [facility] Address [address] [place] [address] Care Team Providers Care Crystal Calibrator Name Role Phone Unavailable Primary Care Provider Unavailabl e Encounter Details Date Type Department Care Team (Late st Contact Info) Description 04/11/2004 Office Visit [facility] [address] [place] [address] Josh Coelho, EUNICE-C [address] [facility], [address] [place] [phone] Social History Tobacco Use Types Packs/Day Years [...] Discharge instructions reviewed with the patient and lead front desk agent. Warnings reviewed. Reviewed medication. Treatments reviewed. Reviewed referrals. Patient and lead front desk agent verbalized understanding. The patient was discharged home and accompanied by lead front desk agent. The patient left the Emergency Department ambulatory and via private vehicle. Patient has no belongings. --15:23 Rob Gould R.N., R.N. Locked/Released at 04/11/2004 23:18 by Fermin Millan R.N. documented in this encounter Plan of Treatment Not on file documented as of this encounter Visit Diagnoses Not on filedocumented in this encounter
--- OUTSIDE RECORDS SUMMARY | 2024-05-31 07:38 | XMS_ITS | Encounter Summary ---
Author Organization [facility] Address [address] [place] [address] Care Team Providers Care Chemical Plant Manager Name Role Phone Unavailable Primary Care Provider Unavailabl e Encounter Details Date Type Department Care Team (Late st Contact Info) Description 06/13/2004 Office Visit [facility] [address] [place] [address] Doris Moreno MD [address] [facility], [address] [place] [phone] Social History Tobacco Use Types Packs/Day Years [...] patient was discharged home and accompanied by intervention teacher. The patient left the Emergency Department ambulatory and via private vehicle. --17:31 Rob Echeverria R.N., E.M.T. Dorrie Bruso R.N. Tyler Vogt, R.N. Locked/Released at 06/13/2004 19:11 by Norma Evans R.N. documented in this encounter Plan of Treatment Not on file documented as of this encounter Visit Diagnoses Not on filedocumented in this encounter
--- OUTSIDE RECORDS SUMMARY | 2024-05-31 07:38 | XMS_ITS | Encounter Summary ---
Author Organization [facility] Address [address] [place] [address] Care Team Providers Care Math Instructor Name Role Phone Unavailable Primary Care Provider Unavailabl e Encounter Details Date Type Department Care Team (Latest Contact Info) Description 06/13/2004 14:28 EST Hospital Encounter [facility] Emergency Department - [facility] [address] [place] [address] Emergency, Default, MD Discharge Disposition: Home or [...] RESULT Final Result [facility] [address] [place] [address] * (ABNORMAL) HEMAGRAM AND DIFFERENTIAL (06/13/2004 15:19 [...] BLES Final Result [facility] [address] [place] [address] documented in this encounter Visit Diagnoses Not on filedocumented in this encounter
--- OUTSIDE RECORDS SUMMARY | 2024-05-31 07:38 | XMS_ITS | Encounter Summary ---
Author Organization [facility] Address [address] [place] [address] Care Team Providers Care Crisis Nurse Name Role Phone Jasmin Jara Primary Care Provider Unavail Trinity Wilson MD Primary Care Provider Encounter Details Date Type Department Care Team (Late st Contact Info) Description 04/02/2004 Results Only [facility] Family Medicine [address] [address] Mervin Arevalo MD [address] [place] [address] [phone] Social History Tobacco Use Types [...] Result No Neisseria gonorrhoeae DNA detected by environmental construction engineer mediated amplification. [facility] Report Status Final [id number] [facility] Specimen Description [facility] 04/02/2004 15:5 8 EDT 04/02/2004 22:22 EDT us Mervin Arevalo MD MICROBIOLOGY - GENERAL ORDERAB LES Final Result Performing Organization Address [facility] de Phone Number [facility] [address] [place] [address] * CHLAMYDIA TRACHOMATIS AMPLIFIED PROBE (04/02/2004 15:58 EDT) Specimen Description [facility] Result No Chlamydia trachomatis DNA detected by environmental construction engineer mediated amplification. [facility] Report Status Final [id number] [facility] 04/02/2004 15:5 8 EDT 04/02/2004 22:21 EDT us Mervin Arevalo MD MICROBIOLOGY - GENERAL ORDERAB LES Final Result Performing Organization Address [facility] de Phone Number [facility] [address] [place] [address] * CYTOPATHOLOGY (04/02/2004 0:00 EDT) Pathology Report: CYTOPATHOLOGY REPORT Reports generated via electronic interface contain original data; however they are lacking the format of the original report. Caution should be taken when reading/interpreti ng unformatted reports. Name: ? CRISTY DEL VALLE ? Accession #: ? [id number] : ? 1985 (Age: 19) ??F ?Collect [...] Final Res ult [facility] [address] [place] [address] documented in this encounter Visit Diagnoses Not on filedocumented in this encounter Care Teams Crisis Nurse Relationship Specialty Start Date End Date Jasmin Jara PA PCP - General 10/06/09 05/09/10 Trinity Samaniego MD [address] [place] [phone] PCP - General 09/16/09 10/05/09 documented as of this encounter
--- OUTSIDE RECORDS SUMMARY | 2024-05-31 07:38 | XMS_ITS | Encounter Summary ---
Author Organization [facility] Address [address] [place] [address] Care Team Providers Care Technical Sales Director Name Role Phone Unavailable Primary Care Provider Unavailabl e Encounter Details Date Type Department Care Team (Latest Contact Info) Description 04/11/2004 12:25 EST Hospital Encounter [facility] Emergency Department - [facility] [address] [place] [address] Emergency, Default, MD Discharge Disposition: Home or [...] BLES Final Result [facility] [address] [place] [address] * N. GONORRHOEAE AMPLIFIED PROBE (04/11/2004 13:50 EST) Result No Neisseria gonorrhoeae DNA detected by service officer mediated amplification. [facility] Report Status Final [id number] [facility] Specimen Description [facility] 04/11/2004 13:5 0 EST 04/11/2004 14:05 EST us Default Emergency MICROBIOLOGY - GENERAL CLEMENTE GOLDEN Final Result Performing Organization Address [facility] Co de Phone Number [facility] [address] [place] [address] * CHLAMYDIA TRACHOMATIS AMPLIFIED PROBE (04/11/2004 13:50 EST) Specimen Description [facility] Result No Chlamydia trachomatis DNA detected by service officer mediated amplification. [facility] Report Status Final [id number] [facility] 04/11/2004 13:5 0 EST 04/11/2004 14:05 EST us Default Emergency MICROBIOLOGY - GENERAL CLEMENTE GOLDEN Final Result Performing Organization Address City/[facility]/ZIP Co de Phone Number [facility] [address] [place] [address] documented in this encounter Visit Diagnoses Not on filedocumented in this encounter
--- NOTE | 2024-05-31 08:33 | PDOC.CMIN ---
Date of service: 05/31/24 Time of Service: 08:33 Care Management Initial Assmt Advance Directives Advance Directives: Do you have an Advance Directive: N 01/24/21 19:08 AD On File at [facility]: N 01/24/21 19:08 Date Asked 03/12/24 03/12/24 13:56 AD Date Reviewed COLST On File at [facility] COLST Date Scanned Code Status Resuscitation Status Full Code Care Team Visit Care Team Role Provider Type CARLY PADGETT MD Primary Care Provider [facility] STAFF PHYSICIAN Rigo Amos MD Emergency Provider [facility] STAFF PHYSICIAN Broderick Rubi Admit Provider NON-[facility] STAFF PHYSICIAN Attending Provider [facility] All Active Problems (Updated 05/31/24 @ 06:33 by Broderick Rubi) Back pain (Acute) Phantom limb pain (Acute) Contracture, plantar fascia (Acute) Neuropathic ulcer of left foot with fat layer exposed (Acute) Abnormal CT of the abdomen (Acute) Gallbladder sludge (Acute) Intractable nausea and vomiting (Acute) Osteomyelitis of left foot (Acute) Corns and callosities (Acute) Chronic nausea (Acute) Vomiting (Acute) Tobacco abuse (Acute) Cannabinoid hyperemesis syndrome (Chronic) Medical History DVT (deep venous thrombosis) Gastroparesis Ulcerative esophagitis History of osteomyelitis IBS (irritable bowel syndrome) History of kidney stones Suicide attempt Anxiety and depression Diabetic neuropathy Diabetes Type 1, per patient she said she was told she had diabetes type 2. 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 Maternal Cousin Breast cancer Maternal Cousin Breast cancer Maternal Cousin Breast cancer Social History Smoking/Tobacco Use Status: Current every day Tobacco Type: cigarettes Smoking risk assessment performed?: Yes Alcohol Intake: current Alcohol Intake frequency: holidays/special occasions only Drug use: Daily Substance use type: marijuana Housing: house Do you feel safe at home: Yes Do you feel safe in your relationship?: Yes SDOH(Care Management) Screening Will the Patient Participate in the Screening?: Yes Do you worry about having a steady place to live?: no Problems where you live: no known problems In the past 12 months, have you had to go without electric, gas, oil or water in your home?: no Have you or anyone in your house had to go without enough food to eat?: no Has lack of transportation kept you from medical appointments or from doing things needed for daily living?: no Has anyone in your support network made you feel unsafe for any reason?: no Health Related Social Needs Health related social needs details: none
[2024-05-31] MEDS: Normal Saline Flush 10 ML SYR IVP (08:59)
[2024-05-31] MEDS: Gabapentin 300 MG CAP PO (08:59)
[2024-05-31] MEDS: Enoxaparin 40 MG/0.4 ML SYR SC (09:00)
[2024-05-31] MEDS: Pantoprazole 40 MG VIAL IVP (09:00)
[2024-05-31] MEDS: Insulin Aspart 300 UNITS/3 ML PEN SC ×2 (09:01→12:42)
[2024-05-31] MEDS: Lidocaine 5% Patch 1 PATCH TP (09:13)
--- NOTE | 2024-05-31 09:54 | W.PC.ACHO ---
Registration Status: Primary Language: Preferred Language: ED Information & Data Chief Complaint Nausea/Vomit/Diar 05/31/24 00:37 Chief Complaint Nausea/Vomit/Diar 05/31/24 00:33 Triage Note vomiting since 6am, has hx 05/31/24 00:33 of gastroparesis. tried taking home meds but unable to sit water. had diarrhea this morning. reports fever at home. Medical / Surgical History (Last Reviewed 05/31/24 @ 06:28 by Broderick Rubi) DVT (deep venous thrombosis) Gastroparesis Ulcerative esophagitis History of osteomyelitis IBS (irritable bowel syndrome) History of kidney stones Suicide attempt Anxiety and depression Diabetic neuropathy Diabetes (Last Reviewed 05/31/24 @ 06:28 by Broderick Rubi) History of amputation H/O tubal ligation Amputation of left great toe Most Recent Vital Signs Temperature 37.4 C 05/31/24 07:33 Pulse 124 H 05/31/24 07:33 Pulse 130 H 05/31/24 07:10 Respiratory Rate 22 05/31/24 07:33 Respiratory Effort Normal 05/31/24 07:33 Respiratory Depth Normal 05/31/24 07:33 Respiratory Pattern Tachypnea 05/31/24 07:33 Blood Pressure 126/67 05/31/24 07:33 Blood Pressure Mean 101 05/31/24 07:02 Blood Pressure Position Supine 05/31/24 01:08 Pulse Oximetry 99 05/31/24 07:33 Oxygen Delivery Method Room Air 05/31/24 07:33 Oxygen Flow Rate 0 05/31/24 07:33 Pain Level 7 05/31/24 09:00 Comment provider aware of tachycardia, patient on telemetry 05/31/24 07:33 Allergies ibuprofen (From Advil) Allergy (Severe, Verified 05/31/24 00:41) Anaphylaxis pomegranate Allergy (Severe, Verified 05/31/24 00:41) Anaphylaxis citalopram Adverse Reaction (Severe, Verified 05/31/24 00:41) Bodily harm Precautions Isolation Standard precaution 05/31/24 00:37 Active Medications Generic Name Dose Route Start Last Admin Trade Name Freq PRN Reason Stop Dose Admin Enoxaparin Sodium 40 mg 05/31/24 08:30 05/31/24 09:00 Enoxaparin 40 Mg/0.4 Ml Syr SC 40 mg Q24H ROXANA Administration Gabapentin 300 mg 05/31/24 08:30 05/31/24 08:59 Gabapentin 300 Mg Cap PO 300 mg DAILY ROXANA Administration Ringer's Solution 1,000 mls @ 150 mls/hr 05/31/24 05:15 05/31/24 07:16 IV 150 mls/hr INFUSION ROXANA Administration Insulin Aspart 0 units 05/31/24 08:00 05/31/24 09:01 Insulin Aspart 300 Units/3 Ml Pen SC 6 unit 0800,1200,1700 ROXANA Administration Protocol Lidocaine 1 patch 05/31/24 08:30 05/31/24 09:13 Lidocaine 5% Patch TP 1 patch DAILY ROXANA Administration Pantoprazole Sodium 40 mg 05/31/24 08:30 05/31/24 09:00 Pantoprazole 40 Mg Vial IVP 40 mg DAILY ROXANA Administration Sodium Chloride 0 ml 05/31/24 08:30 05/31/24 08:59 Normal Saline Flush 10 Ml Syr IVP 10 ml BID ROXANA Administration IV IV Catheter Type [Left Peripheral IV Antecubital] IV Catheter Gauge [Left 18 Antecubital] Diet Orders Category Date Time Status Diabetes Consistent CHO [DIET] Nutrition 05/31/24 Breakfast Active Diagnostics 05/31/24 05/31/24 05/31/24 Range/Units 13:00 07:10 04:05 WBC (4.4-10.8) 10^3/uL RBC (3.93-5.22) 10^6/uL Hgb (11.2-15.7) g/dL Hct (36.0-46.0) % MCV (80-95) fL MCH (27.0-33.0) pg MCHC (32.0-36.0) % RDW (11.7-14.6) % Plt Count (130-400) 10^3/uL MPV (8.0-11.0) fL Immature Gran % % Neutrophils % % Lymphocytes % % Monocytes % % Eosinophils % % Basophils % % Nucleated RBC % (0.0-0.3) % Absolute Neutrophils (1.2-6.7) 10^3/uL Absolute Lymphocytes (1.2-3.4) 10^3/uL Absolute Monocytes (0.1-0.8) 10^3/uL Absolute Eosinophils (0.0-0.7) 10^3/uL Absolute Basophils (0.0-0.2) 10^3/uL VBG pH 7.37 (7.31-7.41) VBG pCO2 45 (41-51) mmHg VBG pO2 37 mmHg VBG HCO3 26 (23-28) mmol/L VBG Total CO2 23 L (24-29) mmol/L VBG O2 Saturation 71 % VBG Base Excess 1 (-2-3) mmol/L Sodium Pending 146 H (136-145) mmol/L Potassium Pending 3.6 (3.5-5.1) mmol/L Chloride Pending 103 (98-107) mmol/L Carbon Dioxide Pending 26.6 (21.0-32.0) mmol/L Anion Gap Pending 16.4 H (3-11) mmol/L BUN Pending 17 (7-18) mg/dL Creatinine Pending 0.9 (0.55-1.02) mg/dL Est GFR (CKD-EPI 2020) Pending 83.40 (mL/min/1.73m2) Glucose Pending 289 H (74-106) mg/dL Calcium Pending 9.0 (8.5-10.1) mg/dL Magnesium (1.8-2.4) mg/dL Total Bilirubin (0.2-1.0) mg/dL AST (15-37) U/L ALT (14-59) U/L Alkaline Phosphatase (46-116) U/L C-Reactive Protein Pending Total Protein (6.4-8.2) g/dL Albumin (3.4-5.0) g/dL Lipase (<78) U/L Urine Color (Yellow) Urine Clarity (Clear) Urine pH (5-8) Ur Specific [place] (1.005-1.025) Urine Protein (Neg-Trace) mg/dL Urine Ketones (Negative) mg/dL Urine Blood (Negative) Urine Nitrite (Negative) Urine Bilirubin (Negative) Urine Urobilinogen (Up to 0.2) mg/dL Ur Leukocyte Esterase (Negative) Urine RBC (0-2) HPF Urine WBC (0-5) HPF Ur Epithelial Cells (Negative) HPF Urine Crystals (Negative) HPF Urine Bacteria (Negative) HPF Urine Casts (Negative) LPF Urine Mucus (Negative) Ur Culture Indicated? Urine Glucose (Negative) mg/dL Urine HCG, Qual Add-On Test Request 05/31/24 05/31/24 Range/Units 03:10 01:00 WBC 16.55 H (4.4-10.8) 10^3/uL RBC 5.30 H (3.93-5.22) 10^6/uL Hgb 16.6 H (11.2-15.7) g/dL Hct 46.8 H (36.0-46.0) % MCV 88 (80-95) fL MCH 31.3 (27.0-33.0) pg MCHC 35.5 (32.0-36.0) % RDW 12.4 (11.7-14.6) % Plt Count 401 H (130-400) 10^3/uL MPV 9.8 (8.0-11.0) fL Immature Gran % 0.5 % Neutrophils % 82.1 % Lymphocytes % 11.8 % Monocytes % 5.3 % Eosinophils % 0.0 % Basophils % 0.3 % Nucleated RBC % 0.0 (0.0-0.3) % Absolute Neutrophils 13.59 H (1.2-6.7) 10^3/uL Absolute Lymphocytes 1.95 (1.2-3.4) 10^3/uL Absolute Monocytes 0.88 H (0.1-0.8) 10^3/uL Absolute Eosinophils 0.00 (0.0-0.7) 10^3/uL Absolute Basophils 0.05 (0.0-0.2) 10^3/uL VBG pH (7.31-7.41) VBG pCO2 (41-51) mmHg VBG pO2 mmHg VBG HCO3 (23-28) mmol/L VBG Total CO2 (24-29) mmol/L VBG O2 Saturation % VBG Base Excess (-2-3) mmol/L Sodium 142 (136-145) mmol/L Potassium 3.6 (3.5-5.1) mmol/L Chloride 97 L (98-107) mmol/L Carbon Dioxide 28.5 (21.0-32.0) mmol/L Anion Gap 16.5 H (3-11) mmol/L BUN 18 (7-18) mg/dL Creatinine 1.1 H (0.55-1.02) mg/dL Est GFR (CKD-EPI 2020) 65.55 (mL/min/1.73m2) Glucose 378 H (74-106) mg/dL Calcium 10.1 (8.5-10.1) mg/dL Magnesium 1.8 (1.8-2.4) mg/dL Total Bilirubin 0.59 (0.2-1.0) mg/dL AST 16 (15-37) U/L ALT 23 (14-59) U/L Alkaline Phosphatase 154 H (46-116) U/L C-Reactive Protein Total Protein 8.4 H (6.4-8.2) g/dL Albumin 4.0 (3.4-5.0) g/dL Lipase 29 (<78) U/L Urine Color Yellow (Yellow) Urine Clarity Clear (Clear) Urine pH 5.5 (5-8) Ur Specific [place] 1.025 (1.005-1.025) Urine Protein 30 H (Neg-Trace) mg/dL Urine Ketones >=160 H (Negative) mg/dL Urine Blood Trace-intact H (Negative) Urine Nitrite Negative (Negative) Urine Bilirubin Negative (Negative) Urine Urobilinogen 0.2 (Up to 0.2) mg/dL Ur Leukocyte Esterase Negative (Negative) Urine RBC 0-2 (0-2) HPF Urine WBC 0-2 (0-5) HPF Ur Epithelial Cells Rare (Negative) HPF Urine Crystals Negative (Negative) HPF Urine Bacteria Rare (Negative) HPF Urine Casts Negative (Negative) LPF Urine Mucus Negative (Negative) Ur Culture Indicated? No Urine Glucose 500 H (Negative) mg/dL Urine HCG, Qual Negative Add-On Test Request DONE 05/31/24 07:03 Blood Culture - Pending Blood 05/31/24 07:03 Blood Culture - Pending Blood [id number] Documentation Fingerstick Glucose Start: 05/31/24 06:47 Freq: AC & HS Status: Active Protocol: Activity Type Activity Date Activity User E-sign Co-sign Detail Recorded Client Recorded Date Recorded By Document 05/31/24 08:33 PHAM DANEVAON(3) [id number] 05/31/24 08:34 PHAM DAEMON(4) Intake and Output - 24 Hour Total 05/31/24 00:29 thru 05/31/24 07:33 Intake Total 2049 Balance 2049 Weight 87.6 kg Intake: IV 2000 Oral 50 Other: Emesis Description Bile Falls Risk Assessment History of Falls No History 05/31/24 07:33 Contributing Factors Medications 05/31/24 07:33 Ambulatory Aids Independent 05/31/24 07:33 Tubes/Lines W/no contributing factors 05/31/24 07:33 Gait Evaluation W/no contributing factors 05/31/24 07:33 Cognition No cognitive impairment 05/31/24 07:33 Fall Total Score 23 05/31/24 07:33 Level of Risk Standard/Low Risk 05/31/24 07:33 Problems (Last Reviewed 05/31/24 @ 06:28 by Broderick Rubi) Intractable nausea and vomiting (Acute) Cannabinoid hyperemesis syndrome (Chronic) v v v v v v v v v Sending and/or Receiving Nurses: Please use comment section below to note any information pertinent to the patient hand-off not included above. Information / Comments: Neuro: AxOx4 Cardiac: Tachcardic >122 BP 180/102-104/68 Lungs: Clear RA GI: Nausea, vomiting, did not tolerate gingerale. (patient's GERD flared up r/t emesis) : WNL (W/C to bathroom due to weakness from vomiting Skin: WNL toe amp (healed) LDA: 18g LAC (Infusing 150mL/hr) Medications given in ED: 2L NaCl Zofran, Compazine, famotidine, Report received from: Naa ROBERTSON (ED RN) 07:07
[2024-05-31 10:22] LABS: C-Reactive Protein 2.34 mg/dL (<or=0.5)
--- NOTE | 2024-05-31 11:07 | PHA.REVIEW2 ---
Pharmacy Admission Review Admission Clinical Review Admission Pharmacy Review: Intractable nausea and vomiting (Acute) ibuprofen (From Advil) Allergy (Severe, Verified 05/31/24 00:41) Anaphylaxis pomegranate Allergy (Severe, Verified 05/31/24 00:41) Anaphylaxis citalopram Adverse Reaction (Severe, Verified 05/31/24 00:41) Bodily harm Resuscitation Status Full Code Height 5 ft 4 in Weight 87.6 kg Comments Comments/Follow Ups: Watch BP, HR, BG, labs, for culture results and for med changes (IV to PO once tolerating PO). Pharmacy Admission Review Renal Dosing Renal Dosing: BUN 17 mg/dL (7-18) 05/31/24 04:05 Creatinine 0.9 mg/dL (0.55-1.02) 05/31/24 04:05 Medications needing adjustments: Reviewed (Crcl ~89.9 mL/min current meds are okay) Anticoagulation Anticoagulation: Hgb 16.6 g/dL (11.2-15.7) H 05/31/24 01:00 Hct 46.8 % (36.0-46.0) H 05/31/24 01:00 Plt Count 401 10^3/uL (130-400) H 05/31/24 01:00 Creatinine 0.9 mg/dL (0.55-1.02) 05/31/24 04:05 DVT Prophylaxis: Reviewed Medications: Enoxaparin Opiate Usage Evaluate Pain Scale/Pains Meds: Reviewed Scheduled Bowel Reg ordered if on Opiates?: No (has PRN meds ordered) Relevant Labs Relevant Labs: Sodium 146 mmol/L (136-145) H 05/31/24 04:05 Potassium 3.6 mmol/L (3.5-5.1) 05/31/24 04:05 Chloride 103 mmol/L (98-107) 05/31/24 04:05 Magnesium 1.8 mg/dL (1.8-2.4) 05/31/24 01:00 C-Reactive Protein 2.34 mg/dL (<or=0.5) H 05/31/24 09:38 Electrolytes, C-Reactive P, ESR: Reviewed DM Control DM Control: Glucose 289 mg/dL (74-106) H 05/31/24 04:05 Finger Stick Blood Glucose 238 Finger Stick Blood Glucose 238 Finger Stick Blood Glucose 238 DM Control: Reviewed (has sliding scale insulin aspart ordered) Cardiac Review BP, HR, EF%: Reviewed (BP and HR have been normal to high so far this admission) QTc Review QTc: N/A IV to PO Switch IV Medications: Reviewed Home Meds Home Med List reviewed: Reviewed Relevent Home Meds Not ordered & why?: medihoney (PRN), insulin glargine (on hold per H&P), metoclopramide (inpatient order was discontinued due to interaction with prochlorperazine), omeprazole (has IV pantoprazole ordered). Current Meds Current Medication Order Review: Intervened (adjusted PRN a couple of PRN orders so they cross over to pyxis correctly, discontinued a duplicate med order, talked to provider about medication interaction) Pharmacy Antibiotic Review Relevant Labs: Relevant Labs 05/31/24 09:38 C-Reactive Protein 2.34 H Pharmacy Antibiotic Activity: C/S review and Reviewed, no change Comments: Blood cultures pending; not on any antibiotics but blood cultures were ordered due to pt's history of osteo and an increased WBC per H&P. Comments Comments/Follow Ups: Watch BP, HR, BG, labs, for culture results and for med changes (IV to PO once tolerating PO).
--- NOTE | 2024-05-31 12:28 | DSE_ITS ---
Date of service: 05/31/24 Time of Service: 12:29 DS: Diagnosis Discharge Diagnosis (1) Intractable nausea and vomiting: Status: Acute (2) Gastroparesis: (3) Cannabinoid hyperemesis syndrome: Status: Chronic (4) Diabetes: (5) IBS (irritable bowel syndrome): (6) Anxiety and depression: Discharge Plan Disposition Patient Disposition: Home Condition: Improving Discharge Details Reason For Visit: intractable nausea and vomiting, anion gap, dehydr Admit Date/Time: 05/31/24 05:11 Admit Provider: Broderick Rubi Attending Provider: Broderick Rubi Primary Care Provider: CARLY PADGETT [facility] Hospital Course: This is a 39-year-old female patient past medical history significant for diabetes mellitus depression, gastroparesis, cannabinoid use who presents to the emergency with intractable nausea and vomiting. She was given IV fluids and referred to observation to the medical surgical unit for further management. By morning she was tolerating clear liquids asking for her diet to be advanced. Hemodynamically she was stable. Requesting discharge to home. She is safe for discharge to home will resume usual medications as previously directed and follow-up with her outpatient provider as needed discharge discussed with Dr Santana [place] Meds and New Rx's Prescriptions: Continued omeprazole 40 mg capsule,delayed release(DR/EC) 40 mg PO DAILY Qty: 30 5RF nortriptyline 10 mg capsule 10 mg PO QHS gabapentin 300 mg tablet 300 - 900 mg PO DIRECTED Rx Instructions: 300 qam 1200 hs insulin glargine [Lantus Solostar U-100 Insulin] 100 unit/mL (3 mL) insulin pen 50 unit SUBCUT HS insulin aspart U-100 [Novolog FlexPen U-100 Insulin] 100 unit/mL (3 mL) insulin pen 15 unit SUBCUT TID Patient Comments: adjusted to carbs and pre-meal BS, up to 15u SUBCUTANEOUSLY THREE TIMES DAILY WITH MEALS lidocaine [Lidoderm] 5 % adhesive patch,medicated 1 patch topical DIRECTED Patient Comments: PLACE 1 PATCH ONTO THE SKIN DAILY. PATCHE(S) MAY REMAIN IN PLACE FOR UP TO 12 HOURS IN ANY 24-HOUR PERIOD duloxetine 40 mg capsule,delayed release(DR/EC) 40 mg PO DAILY Patient Comments: TAKE 1 CAPSULE BY MOUTH ONCE DAILY metoclopramide HCl [Reglan] 10 mg tablet 10 mg PO Q6H PRN Rx Instructions: take 30 minutes before meals and at bedtime (DME) Dexcom G6 Sensor Device See Rx Instructions .Route Qty: 6 0RF Rx Instructions: As directed tramadol 50 mg Tablet 50 mg PO Q6H PRN PRNQty: 30 0RF ondansetron 4 mg tablet,disintegrating 4 mg PO Q6H PRNQty: 60 0RF MediHoney (honey) 80 % gel 1 applic topical DAILY PRN Discharge Instructions Instructions: Nausea and Vomiting, Adult ED Additional Instructions: advance diet as tolerated. Stand Alone Forms: Nursing Discharge Form Referrals: CARLY PADGETT MD [Primary Care Provider] - (Please call the office to make a hospital follow up within 10-14 days. ) Activity:: Activity as Tolerated Equipment/Supplies:: No Equipment Needed Diet:: As Tolerated Discharge Orders Discharge Orders: Discharge Order (Routine); Ordered 05/31/24 Ordered By: Rosa Rm Discharge Data Discharge Date/Time-TO BE ENTERED AT DEPARTURE: 05/31/24 14:36 DS: Summary Time Spent with Patient providing and/or coordinating discharge services: Less than 30 minutes Status at Discharge Functional status at discharge: independent ambulation Overall status at discharge: patient is back to baseline Mental Status: mental status grossly normal Speech and Movement: speech and movement normal Mood: congruent mood Affect: normal affect Quality:SDOH Health Related Social Needs: Health related social needs details none Health related social needs details: none Exam Narrative Exam Narrative: Well-appearing female of stated age in no acute distress head is atraumatic eyes normal appearance noninjected nonicteric oral mucosas moist no exudate neck with full range of motion respirations even and unlabored pulse is strong and regular patient is awake alert oriented no focal deficits Psych Mental Status: mental status grossly normal Speech and Movement: speech and movement normal Mood: congruent mood Affect: normal affect DS: Data Vitals/I&O Vitals and I&O: Vital Signs Temperature 36.5 C 05/31/24 11:50 Temperature Source Temporal Artery Scan 05/31/24 11:50 Pulse 135 H 05/31/24 11:50 Pulse Rhythm Regular 05/31/24 07:33 Pulse 130 H 05/31/24 07:10 Respiratory Rate 18 05/31/24 11:50 Respiratory Effort Normal 05/31/24 07:33 Respiratory Depth Normal 05/31/24 07:33 Respiratory Pattern Tachypnea 05/31/24 07:33 Blood Pressure 112/79 05/31/24 11:50 Blood Pressure Mean 101 05/31/24 07:02 Blood Pressure Position Supine 05/31/24 01:08 Pulse Oximetry 95 05/31/24 11:50 Oxygen Delivery Method Room Air 05/31/24 11:50 Oxygen Flow Rate 0 05/31/24 11:50 Pain Level 7 05/31/24 11:50 Comment provider aware of tachycardia, patient on telemetry 05/31/24 07:33 Intake & Output 05/30/24 05/31/24 05/31/24 23:59 11:59 23:59 Intake Total 2049 Balance 2049 Weight 87.6 kg Intake: IV 1999 Oral 50 / 50 Other: Emesis Description Bile Data Completed and Pending Labs on day of discharge: Labs from last 24 hours 05/31/24 05/31/24 05/31/24 13:00 09:38 04:05 WBC RBC Hgb Hct MCV MCH MCHC RDW Plt Count MPV Immature Gran % Neutrophils % Lymphocytes % Monocytes % Eosinophils % Basophils % Nucleated RBC % Absolute Neutrophils Absolute Lymphocytes Absolute Monocytes Absolute Eosinophils Absolute Basophils VBG pH 7.37 VBG pCO2 45 VBG pO2 37 VBG HCO3 26 VBG Total CO2 23 L VBG O2 Saturation 71 VBG Base Excess 1 Sodium Pending 146 H Potassium Pending 3.6 Chloride Pending 103 Carbon Dioxide Pending 26.6 Anion Gap Pending 16.4 H BUN Pending 17 Creatinine Pending 0.9 Est GFR (CKD-EPI 2020) Pending 83.40 Glucose Pending 289 H Calcium Pending 9.0 Magnesium Total Bilirubin AST ALT Alkaline Phosphatase C-Reactive Protein 2.34 H Total Protein Albumin Lipase Urine Color Urine Clarity Urine pH Ur Specific [place] Urine Protein Urine Ketones Urine Blood Urine Nitrite Urine Bilirubin Urine Urobilinogen Ur Leukocyte Esterase Urine RBC Urine WBC Ur Epithelial Cells Urine Crystals Urine Bacteria Urine Casts Urine Mucus Ur Culture Indicated? Urine Glucose Urine HCG, Qual Add-On Test Request 05/31/24 05/31/24 03:10 01:00 WBC 16.55 H RBC 5.30 H Hgb 16.6 H Hct 46.8 H MCV 88 MCH 31.3 MCHC 35.5 RDW 12.4 Plt Count 401 H MPV 9.8 Immature Gran % 0.5 Neutrophils % 82.1 Lymphocytes % 11.8 Monocytes % 5.3 Eosinophils % 0.0 Basophils % 0.3 Nucleated RBC % 0.0 Absolute Neutrophils 13.59 H Absolute Lymphocytes 1.95 Absolute Monocytes 0.88 H Absolute Eosinophils 0.00 Absolute Basophils 0.05 VBG pH VBG pCO2 VBG pO2 VBG HCO3 VBG Total CO2 VBG O2 Saturation VBG Base Excess Sodium 142 Potassium 3.6 Chloride 97 L Carbon Dioxide 28.5 Anion Gap 16.5 H BUN 18 Creatinine 1.1 H Est GFR (CKD-EPI 2020) 65.55 Glucose 378 H Calcium 10.1 Magnesium 1.8 Total Bilirubin 0.59 AST 16 ALT 23 Alkaline Phosphatase 154 H C-Reactive Protein Total Protein 8.4 H Albumin 4.0 Lipase 29 Urine Color Yellow Urine Clarity Clear Urine pH 5.5 Ur Specific [place] 1.025 Urine Protein 30 H Urine Ketones >=160 H Urine Blood Trace-intact H Urine Nitrite Negative Urine Bilirubin Negative Urine Urobilinogen 0.2 Ur Leukocyte Esterase Negative Urine RBC 0-2 Urine WBC 0-2 Ur Epithelial Cells Rare Urine Crystals Negative Urine Bacteria Rare Urine Casts Negative Urine Mucus Negative Ur Culture Indicated? No Urine Glucose 500 H Urine HCG, Qual Negative Add-On Test Request DONE 05/31/24 11:13 Blood Blood Culture - Pending 05/31/24 09:38 Blood Blood Culture - Pending Preliminary micro results at discharge 05/31/24 11:13 Blood Culture - Pending Blood 05/31/24 09:38 Blood Culture - Pending Blood PFSH All Active Problems (Updated 05/31/24 @ 06:33 by Broderick Rubi) Back pain (Acute) Phantom limb pain (Acute) Contracture, plantar fascia (Acute) Neuropathic ulcer of left foot with fat layer exposed (Acute) Abnormal CT of the abdomen (Acute) Gallbladder sludge (Acute) Intractable nausea and vomiting (Acute) Osteomyelitis of left foot (Acute) Corns and callosities (Acute) Chronic nausea (Acute) Vomiting (Acute) Tobacco abuse (Acute) Cannabinoid hyperemesis syndrome (Chronic) Medical History DVT (deep venous thrombosis) Gastroparesis Ulcerative esophagitis History of osteomyelitis IBS (irritable bowel syndrome) History of kidney stones Suicide attempt Anxiety and depression Diabetic neuropathy Diabetes Type 1, per patient she said she was told she had diabetes type 2. 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 Maternal Cousin Breast cancer Maternal Cousin Breast cancer Maternal Cousin Breast cancer Social History Smoking/Tobacco Use Status: Current every day Tobacco Type: cigarettes Smoking risk assessment performed?: Yes Alcohol Intake: current Alcohol Intake frequency: holidays/special occasions only Drug use: Daily Substance use type: marijuana Housing: house Do you feel safe at home: Yes Do you feel safe in your relationship?: Yes Time Spent with Patient Time Spent with Patient: <45 minutes Time was spent: preparing to see the patient(eg.review tests), obtaining and/or reviewing separately otained hiistory, indepentently interpreting results and counseling the patient
[2024-05-31] MEDS: DULoxetine 20 MG CAP 40 MG PO (12:41)
[2024-05-31] MEDS: traMADol 50 MG TAB PO (12:42)
--- NOTE | 2024-05-31 14:19 | CHAPLAIN ---
Cristy was resting in bed when I visited. She has been discharged and is waiting for her to pick her up. They live in [place]. Cristy was pleasant and easily engaged in a conversation.
== END 2024-05-31 14:36 | disposition home or self-care (01) ==
LOC: ER 05:38 → MS 07:20
PROVIDERS: Admitting Provider Family Medicine; Emergency Provider Emergency Medicine; PCP Internal Medicine; Visit Provider Family Medicine
DX: R11.2 Nausea with vomiting, unspecified (principal); E11.43 Type 2 diabetes mellitus with diabetic autonomic (poly)neuropathy; E86.0 Dehydration; K31.84 Gastroparesis; F12.90 Cannabis use, unspecified, uncomplicated; Z79.4 Long term (current) use of insulin; K58.9 Irritable bowel syndrome, unspecified; F41.9 Anxiety disorder, unspecified; F32.A Depression, unspecified; Z79.899 Other long term (current) drug therapy; D72.829 Elevated white blood cell count, unspecified; Z86.718 Personal history of other venous thrombosis and embolism; F17.210 Nicotine dependence, cigarettes, uncomplicated; R60.0 Localized edema; Z89.432 Acquired absence of left foot
CPT/HCPCS: 00123; 36415; 80048; 80053; 82805; 83690; 87040; 96361; 96372; 96374; 96375; 99285; J1650; 81003; 81015; 81025; 83735; 85025; 86140; 99236; J1790; J1815; J2405; J2470; J2765

== ENCOUNTER 2024-06-03 08:44 | Emergency (ER) | payer BC, SELFPAY ==
[2024-06-03] VITALS (16 sets, daily range): BP systolic 139–155; BP diastolic 89–100; PULSE 94–133; RESP 16–20; O2SAT 96–100
--- OUTSIDE RECORDS SUMMARY | 2024-06-03 09:00 | XMS_ITS | Encounter Summary ---
Author Organization [facility] [place] [address] Care Team Providers Care Electrical Intern Name Role Phone Carrington Calderon MD Primary Care Provider [phone] Encounter Details Date Type Department Care Team (Late st Contact Info) Description 02/08/2024 Telephone [place] [address] [facility] [place] [address] Social History Tobacco Use Types Packs/Day Years [...] COVERAGE: Reason for Call: Provider Call PCP: Carirngton Calderon MD / Treating provider: Dr. Javier [...] other than self): Diagnostic Imaging Callback number: [phone] Best time you are available: Any documented in this encounter Plan of Treatment Not on file documented as of this encounter Visit Diagnoses Not on filedocumented in this encounter Care Teams Electrical Intern Relationship Specialty Start Date End Date Carrington Calderon MD 1 [facility] Level 1 [place] [phone] PCP - General Internal Medicine 01/16/24 documented as of this encounter
--- OUTSIDE RECORDS SUMMARY | 2024-06-03 09:00 | XMS_ITS | Encounter Summary ---
Author Organization [facility] [place] [address] Care Team Providers Care Lidding Machine Operator Name Role Phone Carrington Calderon MD Primary Care Provider [phone] [phone] Encounter Details Date Type Department Care Team (Late st Contact Info) Description 02/03/2024 Orders [place] [address] Jackie Javier MD [facility] [address] [place] [address] Social History Tobacco Use Types Packs/Day Years [...] on filedocumented in this encounter Care Teams Lidding Machine Operator Relationship Specialty Start Date End Date Carrington Calderon MD 1 [facility] Level [address] [place] [address] PCP - General Internal Medicine 01/16/24 documented as of this encounter
--- OUTSIDE RECORDS SUMMARY | 2024-06-03 09:00 | XMS_ITS | Encounter Summary ---
Author Organization [facility] [place] [address] Care Team Providers Care Enzyme Chemist Name Role Phone Carrington Calderon MD Primary Care Provider [phone] Reason for Visit * Treatment/Therapy Plan Authorization (Routine) - Pending Review Specialty Diagnoses / Procedures Referred By Contac t Referred To Contact Diagnoses Osteomyelitis, unspecified site, unspecified type Procedures TC DALBAVANCIN, 5 MG, INJECTION Jackie Javier MD [facility] [place] [address] [facility] Med Infusion [address] [place] [id number] Referral ID Status Reason Start Date Expiration Date V isits Requested Visits Authorized [id number] Pending Review 02/03/2024 02/02/2025 99 99 Encounter Details Date Type Department Care Team (Latest Contact Info) Description 02/03/2024 12:12 PM EDT - 02/03/2024 11:59 PM EDT Hospital Encounter [place] [phone] Osteomyelitis, unspecified site, unspecified type; Diabetic foot [...] 12.3(H) <=4.9 mg/L 02/03/2024 1:43 PM EDT [facility] Blood VENOUS BLOOD SPECIMEN / Unknown Venipuncture / Unknown 02/03/2024 12:38 PM EDT 02/03/2024 1:00 PM EDT Jackie Javier MD CHEMISTRY ORDERABLES [facility] [place] [address] * (ABNORMAL) Comprehensive metabolic panel (02/03/2024 12:38 PM EDT) Glucose 306(H) 65 - 199 mg/dL 02/03/2024 1:43 PM [facility] Comment:Glucose Concentratio n >=200 mg/dL plus symptoms is consistent with Diabetes Mellitus. Blood Urea Nitrogen 9 8 - 18 mg/dL 02/03/2024 1:43 PM [facility] Creatinine 0.56(L) 0.70 - 1.20 mg/dL 02/03/2024 1:43 PM [facility] Sodium 133(L) 135 - 145 mMol/L 02/03/2024 1:43 PM [facility] Potassium 4.4 3.5 - 5.0 mMol/L 02/03/2024 1:43 PM [facility] Chloride 96(L) 98 - 107 mMol/L 02/03/2024 1:43 PM [facility] Carbon Dioxide 25 22 - 31 mMol/L 02/03/2024 1:43 PM [facility] Anion Gap 12 5 - 15 mMol/L 02/03/2024 1:43 PM [facility] Calcium 9.8 8.5 - 10.5 mg/dL 02/03/2024 1:43 PM [facility] Protein, Total 7.5 6.1 - 8.0 g/dL 02/03/2024 1:43 PM [facility] Albumin 4.1 3.2 - 5.2 g/dL 02/03/2024 1:43 PM [facility] Aspartate Aminotransferase 12 <=30 unit/L 02/03/2024 1:43 PM [facility] Alanine Aminotransferase 13 0 - 30 unit/L 02/03/2024 1:43 PM [facility] Alkaline Phosphatase 138(H) 35 - 105 unit/L 02/03/2024 1:43 PM [facility] Bilirubin, Total <0.2 <=1.3 mg/dL 02/03/2024 1:43 PM [facility] Est Glomerular Filtration Rate - Female 120 mL/min/1. 73 m?? 02/03/2024 1:43 PM EDT [facility] Comment: This patient's estimated [...] Fasting Status No 02/03/2024 1:43 PM EDT [facility] Blood VENOUS BLOOD SPECIMEN / Unknown Venipuncture / Unknown 02/03/2024 12:38 PM EDT 02/03/2024 1:00 PM EDT Jackie Javier MD CHEMISTRY ORDERABLES [facility] [place] [phone] * (ABNORMAL) CBC (with Diff) (02/03/2024 12:38 PM EDT) White Blood Cell 18.69(H) 4.00 - 9.50 x10(3)/mc L 02/03/2024 1:21 PM EDT [facility] Red Blood Cell 4.62 4.00 - 5.21 x10(6)/mc L 02/03/2024 1:21 PM EDT [facility] Hemoglobin 14.3 11.7 - 15.5 g/dL 02/03/2024 1:21 PM EDT [facility] Hematocrit 43.0 35.7 - 45.8 % 02/03/2024 1:21 PM EDT [facility] Mean Cell Volume 93.1 82.6 - 94.4 fL 02/03/2024 1:21 PM EDT [facility] Mean Cell Hemoglobin 31.0 27.1 - 32.0 pg 02/03/2024 1:21 PM [facility] Mean Cell Hemoglobin Concentration 33.3 31.7 - 35.0 g/dL 02/03/2024 1:21 PM [facility] Platelet 405(H) 145 - 357 x10(3)/mc L 02/03/2024 1: PM [facility] Mean Platelet Volume 9.6 7.6 - 12.9 fL 02/03/2024 1:21 PM [facility] RDW Standard Deviation 43.9 37.0 - 46.0 fL 02/03/2024 1: PM [facility] RDW coefficient of variation 12.9 11.5 - 14.1 % 02/03/2024 1: PM [facility] NRBC% auto 0.0 % 02/03/2024 1: PM [facility] NRBC Absolute 0.00 0.00 - 0.00 x10(3)/mc L 02/03/2024 1: PM [facility] Neutrophil % 63.6 % 02/03/2024 1: PM [facility] Neutrophil Absolute (ANC) - Automated 11.90(H) 1.70 - 6.10 x10(3)/mc L 02/03/2024 1: PM [facility] Lymph % 26.2 % 02/03/2024 1:21 PM [facility] Lymph Absolute 4.90(H) 0.90 - 3.20 x10(3)/mc L 02/03/2024 1: PM [facility] Monocyte % 7.3 % 02/03/2024 1:21 PM [facility] Monocyte Absolute 1.36(H) 0.30 - 0.90 x10(3)/mc L 02/03/2024 1:21 PM [facility] Eos % 2.0 % 02/03/2024 1:21 PM EDT [facility] Eos Absolute 0.37 0.00 - 0.40 x10(3)/mc L 02/03/2024 1:21 PM EDT [facility] Basophil % 0.5 % 02/03/2024 1:21 PM EDT [facility] Baso Absolute 0.09 0.00 - 0.10 x10(3)/mc L 02/03/2024 1:21 PM EDT [facility] Immature Gran % 0.4 % 1:21 PM EDT [facility] Immature Gran Absolute 0.07(H) 0.00 - 0.04 x10(3)/mc L 02/03/2024 1:21 PM EDT [facility] Blood VENOUS BLOOD SPECIMEN / Unknown Venipuncture / Unknown 02/03/2024 12:38 PM EDT 02/03/2024 1:00 PM EDT Jackie Javier MD HEMATOLOGY ORDERABLE S [facility] [place] [phone] documented in this encounter Visit Diagnoses Diagnosis [...] mL/hr documented in this encounter Care Teams Enzyme Chemist Relationship Specialty Start Date End Date Carrington Calderon MD 1 [facility] 1 [place] [phone] PCP - General Internal Medicine 01/16/24 documented as of this encounter
--- OUTSIDE RECORDS SUMMARY | 2024-06-03 09:00 | XMS_ITS | Encounter Summary ---
Author Organization [facility] [place] [address] Care Team Providers Care Traffic Enumerator Name Role Phone Carrington Calderon MD Primary Care Provider [phone] [phone] Encounter Details Date Type Department Care Team (Late st Contact Info) Description 01/19/2024 Telephone [place] [phone] Unknown None Social History Tobacco Use Types [...] (if other than self): Patient Callback number: [phone] Best time you are available: Any Route Per Clinic Coverage Page documented in this encounter Plan of Treatment Not on file documented as of this encounter Visit Diagnoses Not on filedocumented in this encounter Care Teams Traffic Enumerator Relationship Specialty Start Date End Date Carrington Calderon MD 1 [facility] 1 [place] [address] PCP - General Internal Medicine 01/16/24 documented as of this encounter
--- OUTSIDE RECORDS SUMMARY | 2024-06-03 09:00 | XMS_ITS | Encounter Summary ---
[facility] [place] [address] Care Team Providers Care Applications Administrator Name Role Phone Carrington Calderon MD Primary Care Provider [phone] [phone] Encounter Details Date Type Department Care Team (Late st Contact Info) Description 02/03/2024 Notes Only Infectious Disease at [facility] [place] [address] Olive Anna, RN Social History Tobacco Use [...] PM EDT Infectious Disease Department Faxed to [facility] on 02/03/24 at 1615 Fax confirmation on 02/03/24 at 1620 Document(s) faxed: Standing labs MRI order documented in this encounter Plan of Treatment Not on file documented as of this encounter Visit Diagnoses Not on filedocumented in this encounter Care Teams Applications Administrator Relationship Specialty Start Date End Date Carrington Calderon MD 1 [facility] 1 [place] [address] PCP - General Internal Medicine 01/16/24 documented as of this encounter
--- OUTSIDE RECORDS SUMMARY | 2024-06-03 09:00 | XMS_ITS | Encounter Summary ---
Author Organization [facility] Address [facility] Arpan rocha [place] [id number] Care Team Providers Care Diagnostic Cardiac Sonographer Name Role Phone Carrington Calderon MD Primary Care Provider +1 -[phone] Reason for Referral * Consultation (Routine) - Closed Specialty Diagnoses / Procedures Referred By Contac t Referred To Contact Infectious Diseases Diagnoses Diabetic foot ulcer with osteomyelitis Jackie Javier MD [facility] [place] [address] Jackie Javier MD [facility] [place] [address] Referral ID Status Reason Start Date Expiration Date V isits Requested Visits Authorized [id number] Closed Assume Subset of Care 02/07/2024 02/06/2025 1 1 Encounter Details Date Type Department Care Team (Late st Contact Info) Description 02/07/2024 Orders [place] [address] Jackie Javier MD [facility] [place] [address] Diabetic foot ulcer with osteomyelitis Social History [...] uncontrolled documented in this encounter Care Teams Diagnostic Cardiac Sonographer Relationship Specialty Start Date End Date Carrington Calderon MD 1 [facility] 1 [place] [address] PCP - General Internal Medicine 01/16/24 documented as of this encounter
--- OUTSIDE RECORDS SUMMARY | 2024-06-03 09:00 | XMS_ITS | Encounter Summary ---
Author Organization [facility] [place] [address] Care Team Providers Care Sales Manager Name Role Phone Carrington Calderon MD Primary Care Provider +1 -[phone] Encounter Details Date Type Department Care Team [...] filedocumented in this encounter Care Teams Sales Manager Relationship Specialty Start Date End Date Carrington Calderon MD 1 [facility] Level 1 [place] [address] PCP - General Internal Medicine 01/16/24 documented as of this encounter
--- OUTSIDE RECORDS SUMMARY | 2024-06-03 09:00 | XMS_ITS | Encounter Summary ---
Author Organization [facility] Address [facility] [address] Care Team Providers Care Cadmium Liquor Maker Name Role Phone Carrington Calderon MD Primary Care Provider +1 -[phone] Reason for Referral * Diagnostic Test (Routine) - Pending Review Specialty Diagnoses / Procedures Referred By Kit goode Referred To Contact Radiology Diagnoses Diabetic foot ulcer with osteomyelitis Procedures MRI Foot wwo Contrast Left Jackie Javier MD [facility] [place] [address] Referral ID Status Reason Start Date Expiration Date Visits Requested Visits Authorized [id number] Pending Review Specialty Service Requested 02/03/2024 08/03/2025 1 1 Reason for Visit * Consultation (Urgent) - Closed Specialty Diagnoses / Procedures Referred By Kit goode Referred To Contact Infectious Diseases Diagnoses Osteomyelitis, unspecified Non-pressure chronic ulcer of other part of left foot with fat layer exposed Madelin Ojeda, [facility] [address] [place] [address] [facility] Infectious Dis [address] [place] [id number] Referral ID Status Reason Start Date Expiration Date V isits Requested Visits Authorized [id number] Closed Consult, Test & Treat PCP Updated and/or Approved 01/11/2024 01/10/2025 12 12 Encounter Details Date Type Department Care Team (Latest Contact Info) Description 02/03/2024 10:30 AM EDT Office Visit [place] [address] Jackie Javier MD [facility] [place] [address] Diabetic foot ulcer with osteomyelitis (Primary Dx) [...] L foot since 2019. [facility], after which she says she was treated with of IV antibiotics via PICC line. In 2020, she transitioned her care to a podiatry practice closer to [facility], where she currently follows with Dr. [...] locally, with the final set at our [id number] appointment. Lastly, I emphasized the importance of other measures, including excellent glycemic control. I alsowonder if she would benefit from an arterial Duplex U/S to assess blood flow to that foot and the need for vascular intervention. I spent a total of 70 minutes on the date of service on the [id number] encounter, chart review, clinical decision making, documentation, [...] 12.3(H) <=4.9 mg/L 02/03/2024 1:43 PM EDT [facility] Blood VENOUS BLOOD SPECIMEN / Unknown Venipuncture / Unknown 02/03/2024 12:38 PM EDT 02/03/2024 1:00 PM EDT Jackie Javier MD CHEMISTRY ORDERABLES [facility] [place] [address] * (ABNORMAL) Comprehensive metabolic panel (02/03/2024 12:38 PM EDT) Glucose 306(H) 65 - 199 mg/dL 02/03/2024 1:43 PM EDT [facility] Comment:Glucose Concentratio n >=200 mg/dL plus symptoms is consistent with Diabetes Mellitus. Blood Urea Nitrogen 9 8 - 18 mg/dL 02/03/2024 1:43 PM EDT [facility] Creatinine 0.56(L) 0.70 - 1.20 mg/dL 02/03/2024 1:43 PM EDT [facility] Sodium 133(L) 135 - 145 mMol/L 02/03/2024 1:43 PM EDT [facility] Potassium 4.4 3.5 - 5.0 mMol/L 02/03/2024 1:43 PM EDT [facility] Chloride 96(L) 98 - 107 mMol/L 02/03/2024 1:43 PM [facility] Carbon Dioxide 25 22 - 31 mMol/L 02/03/2024 1:43 PM [facility] Anion Gap 12 5 - 15 mMol/L 02/03/2024 1:43 PM [facility] Calcium 9.8 8.5 - 10.5 mg/dL 02/03/2024 1:43 PM [facility] Protein, Total 7.5 6.1 - 8.0 g/dL 02/03/2024 1:43 PM [facility] Albumin 4.1 3.2 - 5.2 g/dL 02/03/2024 1:43 PM [facility] Aspartate Aminotransferase 12 <=30 unit/L 02/03/2024 1:43 PM [facility] Alanine Aminotransferase 13 0 - 30 unit/L 02/03/2024 1:43 PM [facility] Alkaline Phosphatase 138(H) 35 - 105 unit/L 02/03/2024 1:43 PM [facility] Bilirubin, Total <0.2 <=1.3 mg/dL 02/03/2024 1:43 PM [facility] Est Glomerular Filtration Rate - Female 120 mL/min/1. 73 m?? 02/03/2024 1:43 PM [facility] Comment: This patient's estimated GFR [...] Foundation Fasting Status No 02/03/2024 1:43 PM [facility] Blood VENOUS BLOOD SPECIMEN / Unknown Venipuncture / Unknown 02/03/2024 12:38 PM EDT 02/03/2024 1:00 PM EDT Jackie Javier MD CHEMISTRY ORDERABLES [facility] [place] [address] * (ABNORMAL) CBC (with Diff) (02/03/2024 12:38 PM EDT) White Blood Cell 18.69(H) 4.00 - 9.50 x10(3)/mc L 02/03/2024 1:21 PM EDT [facility] Red Blood Cell 4.62 4.00 - 5.21 x10(6)/mc L 02/03/2024 1:21 PM EDT [facility] Hemoglobin 14.3 11.7 - 15.5 g/dL 02/03/2024 1:21 PM EDT [facility] Hematocrit 43.0 35.7 - 45.8 % 02/03/2024 1:21 PM EDT [facility] Mean Cell Volume 93.1 82.6 - 94.4 fL 02/03/2024 1:21 PM EDT [facility] Mean Cell Hemoglobin 31.0 27.1 - 32.0 pg 02/03/2024 1:21 PM EDT [facility] Mean Cell Hemoglobin Concentration 33.3 31.7 - 35.0 g/dL 02/03/2024 1:21 PM EDT [facility] Platelet 405(H) 145 - 357 x10(3)/mc L 02/03/2024 1:21 PM EDT [facility] Mean Platelet Volume 9.6 7.6 - 12.9 fL 02/03/2024 1:21 PM EDT [facility] RDW Standard Deviation 43.9 37.0 - 46.0 fL 02/03/2024 1:21 PM EDT [facility] RDW coefficient of variation 12.9 11.5 - 14.1 % 02/03/2024 1:21 PM [facility] NRBC% auto 0.0 % 02/03/2024 1:21 PM [facility] NRBC Absolute 0.00 0.00 - 0.00 x10(3)/mc L 02/03/2024 1:21 PM [facility] Neutrophil % 63.6 % 02/03/2024 1:21 PM [facility] Neutrophil Absolute (ANC) - Automated 11.90(H) 1.70 - 6.10 x10(3)/mc L 02/03/2024 1:21 PM [facility] Lymph % 26.2 % 02/03/2024 1:21 PM [facility] Lymph Absolute 4.90(H) 0.90 - 3.20 x10(3)/mc L 02/03/2024 1:21 PM [facility] Monocyte % 7.3 % 02/03/2024 1:21 PM [facility] Monocyte Absolute 1.36(H) 0.30 - 0.90 x10(3)/mc L 02/03/2024 1:21 PM [facility] Eos % 2.0 % 02/03/2024 1:21 PM [facility] Eos Absolute 0.37 0.00 - 0.40 x10(3)/mc L 02/03/2024 1:21 PM [facility] Basophil % 0.5 % 02/03/2024 1:21 PM [facility] Baso Absolute 0.09 0.00 - 0.10 x10(3)/mc L 02/03/2024 1:21 PM [facility] Immature Gran % 0.4 % 1:21 PM [facility] Immature Gran Absolute 0.07(H) 0.00 - 0.04 x10(3)/mc L 02/03/2024 1:21 PM [facility] Blood VENOUS BLOOD SPECIMEN / Unknown Venipuncture / Unknown 02/03/2024 12:38 PM EDT 02/03/2024 1:00 PM EDT Jackie Javier MD HEMATOLOGY ORDERABLE S [facility] [place] [address] documented in this encounter Visit Diagnoses Diagnosis Diabetic foot ulcer with osteomyelitis- Primary Type II or unspecified type diabetes mellitus with other specified manifestations, not stated as uncontrolled documented in this encounter Care Teams Cadmium Liquor Maker Relationship Specialty Start Date End Date Carrington Calderon MD 1 [facility] Level 1 [place] [address] PCP - General Internal Medicine 01/16/24 documented as of this encounter
--- OUTSIDE RECORDS SUMMARY | 2024-06-03 09:00 | XMS_ITS | Encounter Summary ---
Author Organization [facility] [place] [address] Care Team Providers Care Fiberglass Product Tester Name Role Phone Carrington Calderon MD Primary Care Provider +1 -[phone] Encounter Details Date Type Department Care Team (Late st Contact Info) Description 02/07/2024 Notes Only Infectious Disease at [facility] [place] [address] Olive Anna, RN Social History Tobacco Use [...] PM EDT Infectious Disease Department Faxed to [facility] infusion suite on 02/07/24 at 1300 Fax confirmation on 02/07/24 at 1310 Document(s) faxed: [place] orders Spoke to nurse Crow at [facility] and pt is scheduled for 02/10/24 @1200 Infectious Disease Department Faxed to [facility] Radiology on 02/07/24 at 1300 Fax confirmation on 02/07/24 at 1315 Document(s) faxed: MRI screening questionnaire form that pt's Arnold answered all questions during phone call with this field underwriter. documented in this encounter Plan of Treatment Not on file documented as of this encounter Visit Diagnoses Not on filedocumented in this encounter Care Teams Fiberglass Product Tester Relationship Specialty Start Date End Date Carrington Calderon MD 1 [facility] Level 1 [place] [address] PCP - General Internal Medicine 01/16/24 documented as of this encounter
--- OUTSIDE RECORDS SUMMARY | 2024-06-03 09:00 | XMS_ITS | Encounter Summary ---
Author Organization [facility] [place] [address] Care Team Providers Care Review Appraiser Name Role Phone Carrington Calderon MD Primary Care Provider +1 -[phone] Encounter Details Date Type Department Care Team (Latest Contact Info) Description 03/01/2024 External Results Infectious Disease at [facility] [place] [address] Jackie Javier MD [facility] [place] [address] Diabetic foot ulcer with osteomyelitis Social History [...] (with Diff) (02/10/2024) WBC - External 15.71(H) [facility] Hemoglobin - External 14.8 [facility] Platelets - External 401 [facility] Neutr ABS (ANC) - External 10.4(H) [facility] Blood VENOUS BLOOD SPECIMEN / Unknown 02/10/2024 Jackie Javier MD HEMATOLOGY ORDERABLE S Performing Organization Address City/[facility]/ZIP Co de Phone Number [address] [place], [place] [address] [phone] * CRP, acute inflammation (02/10/2024) CRP - External 10 mg/L [facility] Blood VENOUS BLOOD SPECIMEN / Unknown 02/10/2024 Jackie Javier MD CHEMISTRY ORDERABLES Performing Organization Address City/[facility] Co de Phone Number [address] [place], [place] [address] [phone] * (ABNORMAL) Comprehensive metabolic panel Non-fasting (02/10/2024) Glucose Lvl - External 463(H) [facility] Blood Urea Nitrogen - External 11 [facility] Creatinine - External 0.8 [facility] Sodium - External 129(L) [facility] Potassium - External 4.1 [facility] Chloride - External 93 [facility] Calcium - External 9.4 [facility] Protein, Total - External 7.5 [facility] Albumin - External 3 [facility] Total Bilirubin - External 0.1 [facility] Alk Phos - External 120 [facility] AST (SGOT) - External 12 [facility] ALT (SGPT) - External 16 [facility] Blood VENOUS BLOOD SPECIMEN / Unknown 02/10/2024 Jackie Javier MD CHEMISTRY ORDERABLES Performing Organization Address City/[facility] Co de Phone Number [address] [place], [place] [address] [phone] documented in this encounter Visit Diagnoses Diagnosis Diabetic foot ulcer with osteomyelitis Type II or unspecified type diabetes mellitus with other specified manifestations, not stated as uncontrolled documented in this encounter Care Teams Review Appraiser Relationship Specialty Start Date End Date Carrington Calderon MD 1 [facility] 1 [place] [phone] PCP - General Internal Medicine 01/16/24 documented as of this encounter
--- OUTSIDE RECORDS SUMMARY | 2024-06-03 09:00 | XMS_ITS | Encounter Summary ---
Author Organization [facility] Address [facility] [place] [address] Care Team Providers Care Life Insurance Actuary Name Role Phone Carrington Calderon MD Primary Care Provider +1 -[phone] Encounter Details Date Type Department Care Team (Late st Contact Info) Description 02/03/2024 Orders Only Infectious Disease at [facility] [place] [address] Jackie Javier MD [facility] [place] [address] Diabetic foot ulcer with osteomyelitis Social History [...] Non-fasting (02/10/2024) Glucose Lvl - External 463(H) [facility] Blood Urea Nitrogen - External 11 [facility] Creatinine - External 0.8 [facility] Sodium - External 129(L) [facility] Potassium - External 4.1 [facility] Chloride - External 93 [facility] Calcium - External 9.4 [facility] Protein, Total - External 7.5 [facility] Albumin - External 3 [facility] Total Bilirubin - External 0.1 [facility] Alk Phos - External 120 [facility] AST (SGOT) - External 12 [facility] ALT (SGPT) - External 16 [facility] Blood VENOUS BLOOD SPECIMEN / Unknown 02/10/2024 Jackie Javier MD CHEMISTRY ORDERABLES [address] [place], [place] [id number] [place] [address] * CRP, acute inflammation (02/10/2024) CRP - External 10 mg/L [facility] Blood VENOUS BLOOD SPECIMEN / Unknown 02/10/2024 Jackie Javier MD CHEMISTRY ORDERABLES [address] [place], [place] [address] [place] [address] * (ABNORMAL) CBC (with Diff) (02/10/2024) WBC - External 15.71(H) [facility] Hemoglobin - External 14.8 [facility] Platelets - External 401 [facility] Neutr ABS (ANC) - External 10.4(H) [facility] Blood VENOUS BLOOD SPECIMEN / Unknown 02/10/2024 Jackie Javier MD HEMATOLOGY ORDERABLE S Performing Organization Address City/[facility]/ZIP Co de Phone Number [address] [place], [place] [address] [place] [address] documented in this encounter Visit Diagnoses Diagnosis Diabetic foot ulcer with osteomyelitis Type II or unspecified type diabetes mellitus with other specified manifestations, not stated as uncontrolled documented in this encounter Care Teams Life Insurance Actuary Relationship Specialty Start Date End Date Carrington Calderon MD 1 [facility] 1 [place] [address] PCP - General Internal Medicine 01/16/24 documented as of this encounter
--- OUTSIDE RECORDS SUMMARY | 2024-06-03 09:00 | XMS_ITS | Encounter Summary ---
Author Organization [facility] [place] [address] Care Team Providers Care Precipitation Equipment Tender Name Role Phone Carrington Calderon MD Primary Care Provider +1 -[phone] Encounter Details Date Type Department Care Team (Late st Contact Info) Description 02/07/2024 Telephone [place] [address] None None Social History Tobacco [...] MD / Treating provider: Message: Niru from [facility]iology called and stated that they received the referral for the patients MRI. Niru stated in addition to the referral they received, theywill need a Hard copy of the Insurance Authorization, Patients Insurance Information, and the safety questionaire. Please call with any questions. Caller Name (If other than patient): Niru - Radiology Relationship to Patient (if other than self): [facility], [place], [place] Radiology Callback number: [phone] Best time you are available: Any Route Per Clinic Coverage Page documented in this encounter Plan of Treatment Not on file documented as of this encounter Visit Diagnoses Not on filedocumented in this encounter Care Teams Precipitation Equipment Tender Relationship Specialty Start Date End Date Carrington Calderon MD 1 [facility] 1 [place] [address] PCP - General Internal Medicine 01/16/24 documented as of this encounter
--- OUTSIDE RECORDS SUMMARY | 2024-06-03 09:00 | XMS_ITS | Encounter Summary ---
Author Organization [facility] [place] [address] Care Team Providers Care Community Support Associate Name Role Phone Carrington Calderon MD Primary Care Provider +1 -[phone] Encounter Details Date Type Department Care Team (Late st Contact Info) Description 03/06/2024 Telephone [place] [address] Olive Anna, RN Social History Tobacco Use Types Packs/Day Years Used Date Smoking Tobacco: Every Day Cigarettes Smokeless Tobacco: Never Sex and Gender Information Value Date Recorded Sex Assigned at Not on file Gender Identity Not on file Sexual Orientation Not on file documented as of this encounter Miscellaneous Notes * Telephone Encounter - Olive Anna, RN - 03/06/2024 12:59 PM EDT This chart writer left message for Cristy but pt did not answer. So this chart writer called the whohas just returned to [...] filedocumented in this encounter Care Teams Community Support Associate Relationship Specialty Start Date End Date Carrington Calderon MD 1 [facility] Level 1 [place] [address] PCP - General Internal Medicine 01/16/24 documented as of this encounter
--- OUTSIDE RECORDS SUMMARY | 2024-06-03 09:00 | XMS_ITS | Clinical Summary ---
Author Organization [facility] Address [facility] [place] [address] Care Team Providers Care Tubing Machine Operator Name Role Phone Carrington Calderon MD Primary Care Provider +1 -[phone] Allergies Active Allergy Reactions Criticality Noted Date [...] Team Description 03/06/2024 Telephone [place] [address] Olive Anna RN from Last 3 Months Social History Tobacco [...] - Influenza standard series) 02/05/2024 Care Teams Tubing Machine Operator Relationship Specialty Start Date End Date Carrington Calderon MD 1 [facility] Level 1 [place] [address] PCP - General Internal Medicine 01/16/24
--- OUTSIDE RECORDS SUMMARY | 2024-06-03 09:00 | XMS_ITS | Encounter Summary ---
Author Organization [facility] [place] [address] Care Team Providers Care Optometric Technician Name Role Phone Carrington Calderon MD Primary Care Provider +1 -[phone] Encounter Details Date Type Department Care Team (Late st Contact Info) Description 02/09/2024 Telephone [place] [address] None None Social History Tobacco Use Types [...] Prescriber: Jackie Javier MD Name of Pharmacy: [facility] Address for Pharmacy: [address] [place] [address]/[facility] State for Pharmacy: [place] Is the Patient Currently at the Pharmacy: No Caller Name (If other than patient): Mignon Relationship to Patient (if other than self): [facility] Callback number: [phone] Best time you are available: Any documented in this encounter Plan of Treatment Not on file documented as of this encounter Visit Diagnoses Not on filedocumented in this encounter Care Teams Optometric Technician Relationship Specialty Start Date End Date Carrington Calderon MD 1 [facility] 1 [place] [address] PCP - General Internal Medicine 01/16/24 documented as of this encounter
--- OUTSIDE RECORDS SUMMARY | 2024-06-03 09:00 | XMS_ITS | Encounter Summary ---
[place] [address] Care Team Providers Care Jelly Maker Name Role Phone Carrington Calderon MD Primary Care Provider +1 -[phone] Encounter Details Date Type Department Care Team (Late st Contact Info) Description 02/03/2024 Telephone [place] [address] Olive Anna, RN Social History Tobacco Use [...] on filedocumented in this encounter Care Teams Jelly Maker Relationship Specialty Start Date End Date Carrington Calderon MD 1 [facility] 1 [place] [address] PCP - General Internal Medicine 01/16/24 documented as of this encounter
--- OUTSIDE RECORDS SUMMARY | 2024-06-03 09:01 | XMS_ITS | Encounter Summary ---
Author Organization [facility] Address [address] [place] [address] Care Team Providers Care Police Officer Booking Name Role Phone Carrington Calderon MD Primary Care Provi anders Amrita Asencio Unavailable [phone] Carmelo Hendrickson Unavailable Unavailable Amrita Asencio Unavailable [phone] Encounter Details Date Type Department Care Team (Late st Contact Info) Description 12/29/2023 Patient Outreach [facility] Adult Primary Care - [address] [id number] Amrita Asencio Social History Tobacco Use Types Packs/Day Years Used Date Smoking Tobacco: Every Day Cigarettes 0.5 13.6 Started: 11/10/2010 Smokeless Tobacco: Never Comments:06/13/20 actively try ing to quit about 5-8 cigs/day Alcohol Use Standard Drinks/Week Comments Yes 0 (1 standard drink = 0.6 oz pur e alcohol) rarely [facility] Utilities Answer Date Recorded In the past 12 months has [employer], gas, oil, or water company threatened to [...] Progress Notes * Amrita Asencio - 12/29/2023 8879 EDT [facility] Integrated Care Management Care Coordination Note Spout Worker spoke with patient on text in order to coordinate care. -Patient reports that she doesn't need anything at this time and asked to rescheduled another time -[facility] suggested 3- 6 months outreach AMRITA ASENCIO 04/23/2024 9:55 documented in this encounter Plan of Treatment Not on file documented as of this encounter Visit Diagnoses Not on filedocumented in this encounter Care Teams Police Officer Booking Relationship Specialty Start Date End Date Carrington Calderon MD 1 [facility] 1 [place] [phone] PCP - General Internal Medicine - Primary Care 12/09/20 Amrita Asencio Spout Worker 04/21/23 01/03/24 Carmelo Hendrickson Coordinator 12/01/23 Amrita Asencio Spout Worker 01/04/24 documented as of this encounter
--- OUTSIDE RECORDS SUMMARY | 2024-06-03 09:01 | XMS_ITS | Encounter Summary ---
Author Organization [facility] Address [address] [place] [address] Care Team Providers Care Processor Inspector Name Role Phone Carrington Calderon MD Primary Care Provi anders Carmelo Hendrickson Unavailable Unavailable Abigail Díaz Unavailable Reason for Visit * Reason Onset Date Comments Torticollis 02/06/2024 Encounter Details Date Type Department Care Team (Late st Contact Info) Description 02/06/2024 Telephone [facility] Adult Primary Care - [place] [address] [place] [address] Cedric Yoon MD [address] [place] [address] Torticollis Social History Tobacco Use Types Packs/Day Years Used Date Smoking Tobacco: Every Day Cigarettes 0.5 13.6 Started: 11/10/2010 Smokeless Tobacco: Never Comments:06/13/20 actively try ing to quit about 5-8 cigs/day Alcohol Use Standard Drinks/Week Comments Yes 0 (1 standard drink = 0.6 oz pur e alcohol) rarely [facility] Utilities Answer Date Recorded In the [...] on filedocumented in this encounter Care Teams Processor Inspector Relationship Specialty Start Date End Date Carrington Calderon MD 1 [facility] 1 [place] [address] PCP - General Internal Medicine - Primary Care 12/09/20 Carmelo Hendrickson Coordinator 12/01/23 Abigail Díaz Uppers Edge Burnisher 01/04/24 documented as of this encounter
--- OUTSIDE RECORDS SUMMARY | 2024-06-03 09:01 | XMS_ITS | Encounter Summary ---
Author Organization [facility] Address [address] [place] [address] Care Team Providers Care Front Desk Name Role Phone Carrington Calderon MD Primary Care Provi anders Carmelo Hendrickson Unavailable Unavailable Abigail Díaz Unavailable Encounter Details Date Type Department Care Team (Late st Contact Info) Description 04/03/2024 Patient Outreach [facility] Adult Primary Care - [place] [address] [place], [place] [id number] Carmelo Hendrickson Social History Tobacco Use Types Packs/Day Years Used Date Smoking Tobacco: Every Day Cigarettes 0.5 13.6 Started: 11/10/2010 Smokeless Tobacco: Never Comments:06/13/20 actively try ing to quit about 5-8 cigs/day Alcohol Use Standard Drinks/Week Comments Yes 0 (1 standard drink = 0.6 oz pur e alcohol) rarely C Utilities Answer Date Recorded In the past 12 months has [facility], gas, oil, or water [employer] threatened to shut off services in your [...] your living situation today? I have a [facility] place to live 04/03/2024 Think about [...] the past 12 months has th e [employer], gas, oil, or water [employer] threatened to shut off services in your [...] * Carmelo Hendrickson - 04/03/2024 1134 EDT [facility] Precision Grinder External Initial Note Referred by: Nohemy Krueger RNCM PCP: CARRINGTON CALEDRON Encounter type: Telephone Reason for Referral: help getting insurance Notes: RC called and LVM for Stella. Plan / Action Items: RC will follow up in 1 week. Carmelo Hendrickson 04/03/24 11:34 documented in this encounter Plan of Treatment Not on file documented as of this encounter Visit Diagnoses Not on filedocumented in this encounter Care Teams Front Desk Relationship Specialty Start Date End Date Carrington Calderon MD 1 [facility] 1 [place] [phone] PCP - General Internal Medicine - Primary Care 12/09/20 Carmelo Hendrickson Coordinator 12/01/23 Abigail Díaz Associate Store Director 01/04/24 documented as of this encounter
--- OUTSIDE RECORDS SUMMARY | 2024-06-03 09:01 | XMS_ITS | Encounter Summary ---
Author Organization [facility] Address [address] [place] [address] Care Team Providers Care Gis Web Developer Name Role Phone Carrington Calderon MD Primary Care Provi anders Carmelo Hendrickson Unavailable Unavailable Abigail Díaz Unavailable Encounter Details Date Type Department Care Team (Late st Contact Info) Description 04/06/2024 Abstract [facility] Adult Primary Care - [place] 1 [place] [address] Carrington Calderon MD 1 [facility] 1 [place] [address] Social History Tobacco Use Types Packs/Day Years Used Date Smoking Tobacco: Every Day Cigarettes 0.5 13.6 Started: 11/10/2010 Smokeless Tobacco: Never Comments:06/13/20 actively try ing to quit about 5-8 cigs/day Alcohol Use Standard Drinks/Week Comments Yes 0 (1 standard drink = 0.6 oz pur e alcohol) rarely C Utilities Answer Date Recorded In the past 12 months has [employer], gas, oil, or water company threatened to [...] any time in the past 12 m [facility], were you homeless or living in [...] your living situation today? I have a [facility] place to live 04/03/2024 Think about [...] CHEMISTRY & BLOOD G ORDERABLES Final Result [facility] POINT OF CARE documented in this encounter Visit Diagnoses Not on filedocumented in this encounter Care Teams Gis Web Developer Relationship Specialty Start Date End Date Carrington Calderon MD 1 [facility] [address] 1 [place] [address] PCP - General Internal Medicine - Primary Care 12/09/20 Carmelo Hendrickson Coordinator 12/01/23 Abigail Díaz Casino Floor Walker 01/04/24 documented as of this encounter
--- OUTSIDE RECORDS SUMMARY | 2024-06-03 09:01 | XMS_ITS | Encounter Summary ---
Author Organization [facility] Address [address] [place] [address] Care Team Providers Care Medical Staff Coordinator Name Role Phone Carrington Calderon MD Primary Care Provi anders Abigail Díaz Unavailable [phone] Carmelo Hendrickson Unavailable Unavailable Abigail Díaz Unavailable Encounter Details Date Type Department Care Team (Late st Contact Info) Description 01/03/2024 Lab Requisition [facility] Pathology & Laboratory Medicine - [facility] [address] [place] [address] Madelin Ojeda MD [address] [facility] [address] [place] [address] Encounter for other general examination Social History [...] any time in the past 12 m [facility], were you homeless or living [...] explore management options, if applicable. 01/09/2024 11:58 [facility] Final Diagnosis A. FOOT, LEFT, TRANSMETATARSAL AMPUTATION: - Skin and soft tissue with marked acute inflammation and necrosis involving the resection margin. - Underlying bone with acute osteomyelitis. - Two of five bone resection margins with extensive acute osteomyelitis (see comment). 01/09/2024 11:58 [facility] Diagnosis Comment Correlate with microbiology studies. 01/09/2024 11:58 [facility] Attestation By the signature below, the attending physician certifies that they have 1) personally conducted a gross and/or microscopic examination of the described specimen(s), and/or personally interpreted the results of laboratory testing of the described specimen(s), and 2) personally rendered or confirmed the above diagnosis. 01/09/2024 11:58 [facility] at 1158 Clinical History Diabetic foot ulcer 01/09/2024 11:58 [facility] Gross Description A. [...] aggregate 8.0 x 3.5 x 2.5 cm. Yeast Fermentation Attendant sections are submitted as follows: BLOCK SHIELDS A1- plantar ulcer to closest skin and soft tissue margin of resection (inked blue), perpendicular A2- bone underlying plantar ulcer, following acid decalcification A3-A4- separately received transected bone margins, en face, following acid decalcification (differentially inked) EUNICE MAE(ASCP) 01/03/2024 10:29 01/09/2024 11:58 EDT [facility] Performing Lab [facility] 11:58 EDT [facility] Scanned Images 01/09/2024 11:58 EDT [facility] Tissue TRAUMATIC AMPUTATION OF UPPER LIMB / Unknown 01/02/2024 8:23 EDT 01/03/2024 8:00 EDT us Madelin Ojeda MD PATHOLOGY ORDERABLES Final Resul t [facility] [address] [place] [address] documented in this encounter Visit Diagnoses Diagnosis Encounter for other general examination documented in this encounter Care Teams Medical Staff Coordinator Relationship Specialty Start Date End Date Carrington Calderon MD 1 [facility] [address] [place] [phone] PCP - General Internal Medicine - Primary Care 12/09/20 Abigail Díaz Film Spooler 04/21/23 01/03/24 Carmelo Hendrickson Coordinator 12/01/23 Abigail Díaz Film Spooler 01/04/24 documented as of this encounter
--- OUTSIDE RECORDS SUMMARY | 2024-06-03 09:01 | XMS_ITS | Encounter Summary ---
Author Organization [facility] Address [address] [place] [address] Care Team Providers Care Chair Finisher Name Role Phone Carrington Calderon MD Primary Care Provi anders Carmelo Hendrickson Unavailable Unavailable Abigail Díaz Unavailable Reason for Visit * Reason Onset Date Comments Diabetes 04/05/2024 Diabetes pathway patient Encounter Details Date Type Department Care Team (Late st Contact Info) Description 04/05/2024 Telephone [facility] [place] [facility] [address] [place] [address] Macey Farr, RD [address] [phone] Diabetes (Diabetes pathway patient) Social [...] the past 12 months has th e [employer], gas, oil, or water company threatened to [...] - 04/05/2024 1105 EDT ----- Message from Systems Programmer Nohemy sent at 04/03/2024 10:42 EDT ----- HI ! This patient has no health insurance. Carmelo could you call her? Macey, She is interested in talking with CDE and can do telehealth. She lives in [place]. I've enrolled herin the DM pathway, Thank you both! Azul documented in this encounter Plan of Treatment Not on file documented as of this encounter Visit Diagnoses Not on filedocumented in this encounter Care Teams Chair Finisher Relationship Specialty Start Date End Date Carrington Calderon MD 1 [facility] 1 [place] [phone] PCP - General Internal Medicine - Primary Care 12/09/20 Carmelo Hendrickson Coordinator 12/01/23 Abigail Díaz Systems Programmer 01/04/24 documented as of this encounter
--- OUTSIDE RECORDS SUMMARY | 2024-06-03 09:01 | XMS_ITS | Encounter Summary ---
Author Organization [facility] Address [address] [place] [address] Care Team Providers Care Forest Supervisor Name Role Phone Carrington Calderon MD Primary Care Provi anders Carmelo Hendrickson Unavailable Unavailable Abigail Díaz Unavailable [phone] Encounter Details Date Type Department Care Team (Late st Contact Info) Description 04/06/2024 Abstract [facility] Adult Primary Care - [place] 1 [place] [address] Carrington Calderon MD 1 [facility] 1 [place] [address] Social History Tobacco Use Types Packs/Day Years Used Date Smoking Tobacco: Every Day Cigarettes 0.5 13.6 Started: 11/10/2010 Smokeless Tobacco: Never Comments:06/13/20 actively try ing to quit about 5-8 cigs/day Alcohol Use Standard Drinks/Week Comments Yes 0 (1 standard drink = 0.6 oz pur e alcohol) rarely C Utilities Answer Date Recorded In the past 12 months has [employer], gas, oil, or water company threatened to [...] any time in the past 12 m [facility], were you homeless or living in [...] your living situation today? I have a [facility] place to live 04/03/2024 Think about [...] filedocumented in this encounter Care Teams Forest Supervisor Relationship Specialty Start Date End Date Carrington Calderon MD 1 [facility] [address] [place] [phone] PCP - General Internal Medicine - Primary Care 12/09/20 Carmelo Hendrickson Coordinator 12/01/23 Abigail Díaz Production Expert 01/04/24 documented as of this encounter
--- OUTSIDE RECORDS SUMMARY | 2024-06-03 09:01 | XMS_ITS | Encounter Summary ---
Author Organization [facility] Address [address] [place] [address] Care Team Providers Care Special Shopper Name Role Phone Carrington Calderon MD Primary Care Provi anders Carmelo Hendrickson Unavailable Unavailable Abigail Díaz Unavailable Reason for Visit * Reason Comments Medications Refill Encounter Details Date Type Department Care Team (Late st Contact Info) Description 05/13/2024 Refill [facility] Adult Primary Care - [address] [phone] Carrington Calderon MD [address] [phone] Medications Refill Social History Tobacco Use Types Packs/Day Years Used Date Smoking Tobacco: Every Day Cigarettes 0.5 13.6 Started: 11/10/2010 Smokeless Tobacco: Never Comments:06/13/20 actively try ing to quit about 5-8 cigs/day Alcohol Use Standard Drinks/Week Comments Yes 0 (1 standard drink = 0.6 oz pur e alcohol) rarely [facility] Utilities Answer Date Recorded In the past 12 months has [employer], gas, oil, or water company [...] your living situation today? I have a [facility] place to live 04/03/2024 Think about [...] the past 12 months has th e [employer], gas, oil, or water company threatened to [...] with type 2 diabetes mellitus ([facility]),Primary insomnia Take 1 capsule by mouth at bedtime 30 Capsule 05/14/2024 documented in this encounter Miscellaneous Notes * Telephone Encounter - Cortney Galindo RN - 05/14/2024 2350 EST Medication(s) Requested: nortriptyline Preferred Pharmacy: [facility] [address] [place] [address] Is patient out of medication? Unknown Last Refill Date: 02/21/2024 Last Visit Date with Ordering Provider: 02/21/2024 Next Non-Acute Visit Date Scheduled with Care Team: Visit date not found CORTNEY GALINDO RN 05/14/2024 15:39 documented in this encounter Plan of Treatment Not on file documented as of this encounter Visit Diagnoses Diagnosis Diabetic polyneuropathy associated with type 2 diabetes mellitus ([facility]) Primary insomnia Persistent disorder of initiating or maintaining sleep documented in this encounter Discontinued Medications Medication Sig Discontinue Reason Start Date End Da te nortriptyline (PAMELOR) 10 mg capsuleIndications:Diabeti c polyneuropathy associated with type 2 diabetes mellitus ([facility]),Primary insomnia Take 1 Capsule by mouth at bedtime. 02/21/2024 05/14/2024 documented as of this encounter Care Teams Special Shopper Relationship Specialty Start Date End Date Carrington Calderon MD 1 [facility] 1 [place] [address] PCP - General Internal Medicine - Primary Care 12/09/20 Carmelo Hendrickson Coordinator 12/01/23 Abigail Díaz Automotive Diagnostic Technician 01/04/24 documented as of this encounter
--- OUTSIDE RECORDS SUMMARY | 2024-06-03 09:01 | XMS_ITS | Referral Summary ---
Author Organization [facility] Address [address] [place] [address] Care Team Providers Care Connection Worker Name Role Phone Carrington Calderon MD Primary Care Provi anders Carmelo Hendrickson Unavailable Unavailable Abigail Díaz Unavailable Encounters Date Type Department Care Team Description 05/13/2024 Refill [facility] Primary [facility] [address] [place], [place] [id number] Carrington Calderon MD Medications Refill 04/19/2024 Patient Outreach [facility] [address] [place] [address] Nohemy Krueger RN 04/12/2024 Patient Outreach [facility] Primary [facility] [address] [place], [place] [id number] Carmelo Hendrickson 04/06/2024 Abstract [facility] Primary [facility] [address] [place], [place] [address] Carrington Calderon MD 04/06/2024 Abstract [facility] Primary [facility] [address] [place], [place] [address] Carrington Calderon MD 04/06/2024 Abstract [facility] Primary [facility] [address] [place], [place] [address] Carrington Calderon MD 04/06/2024 Abstract [facility] Primary [facility] [address] [place] [address] Carrington Calderon MD 04/05/[address] [facility] [address] [place] [address] CD Diabetes (Diabetes pathway patient) 04/03/2024 Patient Outreach [facility] Primary [facility] [address] [place] [address] Carmelo Hendrickson 04/03/2024 Patient Outreach [facility] Primary [facility] [address] [place] [address] oNhemy Krueger RN 03/22/2024 Patient Outreach [facility] [address] [place] [address] Nohemy Krueger RN 03/16/2024 Telephone [facility] Primary [facility] [address] [place] [address] Carrington Calderon MD Coordination Of Care from [...] (10 doses) 10 Tablet Active Blood-Glucose Sensor ([employer] G6 SENSOR) deviceIndications :Type 2 diabetes mellitus with diabetic polyneuropathy, with long-term current use of insulin ([facility]) Inject 1 Each into the skin every 10 days. 9 Each Active ondansetron (ZOFRAN-ODT) 4 mg disintegrating tabletIndications :Cyclic vomiting syndrome Take 1 Tablet by mouth every 8 hours as needed for Nausea. 30 Tablet Active insulin glargine (LANTUS SOLOSTAR/SEMGLEE) 100 unit/mL (3 mL) injection penIndications:Ty pe 2 diabetes mellitus with diabetic polyneuropathy, with long-term current use of insulin ([facility]) Inject 44 Units into the skin at bedtime. 36 mL Active SITagliptin phosphate (JANUVIA) 100 mg tabletIndications :Type 2 diabetes mellitus with diabetic polyneuropathy, with long-term current use of insulin ([facility]) Take 1 Tablet by mouth daily. 90 [...] diabetes mellitus ([facility]) Take 1 Capsule by mouth every morning AND 4 Capsules at bedtime. 450 Capsule Active SUMAtriptan (IMITREX) 20 mg/actuation nasal spray USE 1 SPRAY(S) INTO RIGHT NOSTRIL NEEDED FOR MIGRAINE HEADACHE 6 Each 1 024 Active Blood-Glucose Transmitter ([employer]COM G6 TRANSMITTER) deviceIndications :Type 2 diabetes mellitus with diabetic polyneuropathy, with long-term current use of insulin ([facility]) Inject 1 Each into the skin every 3 months. 1 Each 4 024 Active HUMALOG KWIKPEN INSULIN 100 unit/mL injectable penIndications:Ty pe 2 diabetes mellitus with diabetic polyneuropathy, with long-term current use of insulin ([facility]) 8 units with breakfast, 15 units with [...] polyneuropathy, with long-term current use of insulin ([facility]) Brand: Freestyle Lite 1 Each 024 Active blood glucose test stripsIndications :Type 2 diabetes mellitus with diabetic polyneuropathy, with long-term current use of insulin ([facility]) Brand: Freestyle Lite, check glucose 4 times per day for insulin dose titration 100 Each 024 Active lancetsIndication s:Type 2 diabetes mellitus with diabetic polyneuropathy, with long-term current use of insulin ([facility]) Brand: Freestyle, check glucose 4 times per day for insulin dose titration 100 Each 11 024 Active DULoxetine 40 mg capsule,delayed release(DR/EC)Ind ications:Anxiety and depression Take 1 capsule by mouth once daily 90 Capsule 3 024 Active nortriptyline (PAMELOR) 10 mg capsuleIndication s:Diabetic polyneuropathy associated with type 2 diabetes mellitus ([facility]),Primary insomnia Take 1 capsule by mouth at [...] 06/19 Patient has given permission for [facility] to verbally discuss the following [...] Confirmed patient has Traditional Medicaid now. TCN: [id number] Category: P2 Garfield Healy 06/10/2020 19:11 Problem [...] polyneuropathy, with long-term current use of insulin ([facility]) 06/05/2020 Overview (11/17/2022): - Dx approx age [...] approx 2012 - had SI, treated at [place]. Marijuana prn to help with stress/anxiety sx -Describes paradoxical effect of citalopram, reportedly resulting in the above admission at [place] Migraine with aura and witho ut status [...] (06/27/2020): Added automatically from request for surgery [id number] of unknown anatomic location 06/20/2020 06/27/2020 Overview (06/27/2020): Clinical Group: [facility] Patient HPI: Cristy Luo is an 35 y.o. , patient with history of ectopic and positive HCG during post operative period for unrelated procedure. Reported cramping to [facility] nurse on 06/19. LMP: End of the first week of May Rh status: B- Rhogam: Given by [facility] 06/20/20 Desired : Unknown Ectopic [...] 06/20/2020: US today and given RhoGham by [facility]. Place in BB per MD [...] repeat HCG 06/25 & U/S 06/25 in NURSING PROGRAM DIRECTOR clinic. MARCELO Dale 06/25/20: U/S results - [...] (06/05/2020): Added automatically from request for surgery [id number] Type 2 diabetes mellitus wit h left diabetic foot ulcer ([facility]) 05/03/2020 03/27/2021 Osteomyelitis of great toe o f left foot ([facility]) 03/12/2020 06/11/2021 Diabetic foot ulcer associat ed with diabetes mellitus due to underlying condition ([facility]) 03/07/2020 03/27/2021 Diabetic foot infection ([facility]) 03/06/2020 06/11/2021 Diabetic foot ulcer ([facility]) 03/06/2020 06/11/2021 Cellulitis of great toe of left foot 11/26/2019 06/11/2021 Encounter for sterilization 11/20/2019 06/20/2020 Overview (11/20/2019): Added automatically from request for surgery [id number] Missed 10/12/2019 10/15/2019 Overview (10/15/2019): Clinical Group: [...] PCR results found No results found for: [id number] HgA1c [ ] 1T pending [ ] [...] Ectopic 10/25/2018 10/12/2019 Overview (12/25/2018): Clinical Group: [facility] (eg. COGS, ED patient, UOM, MFM, EDIS) [...] Quant Beta HCG = 1652.8 mIU/ml @ [facility] 11/10/2018: Quant Beta HCG, Preg 1,117 mIU/ml* (Ref range: <5 mIU/ml) 11/21/18: Quant Beta HCG 299.98 mIU/mL at [facility] (ref range <2.39) 12/03/18: Quant Beta HCG, 41.94 mIU/ml at [facility] 12/13/18: Quant Beta HCG, 13.63 mIU/ml at [facility] Plan: 10/24/18: per Dr. Coronado repeat HCG 48hrs (10/26), then 1) if plateaued or rising inappropriately, given location, best to treat with MTX or 2) if rising appropriately, given high concern for interstitial , repeat u/s in one week or less. MARCELO Dale 10/26/18: Per Ivonne/Rina, MTX today. Pt received MTX and rhogam today; will return to lab on day 4 (09/29). AMRCELO STOLL 10/29/18: Day 4 s/p MTX - [...] go to lab 11/08. States will go 11/09/18.[facility] 11/10/18: Plan per Dr. Almeida, repeat HCG in 1 week (11/17). Results & plan reviewed with Cristy. MARCELO Dale 11/21/18 Pt plans on going to [facility] today. [facility] 11/21/18. CG 299.98. Repeat in 1 week. Pt would like to go 11/27/18([facility]) as off from work [employer] 12/01/18: [...] Cristy with plan. MARCELO Dale 12/25/18: Per [facility] lab last HCG was 12/13, NOS for 12/20, LVM X3, letter sent, will remove from Beta Book.MARCELO Dale Spontaneous miscarriage 09/04/201510/05 Overview (09/04/2015): 02/18, 08/19. Followed by Dr. López[facility] in OBGYN Type 2 diabetes mellitus ([facility]) 09/03/2015 06/11/2021 Overview (06/11/2021): - Dx approx [...] has e electric, gas, oil, or water [employer] threatened to shut off services in your [...] your living situation today? I have a [facility] place to live 04/03/2024 Think [...] No 10/02/2020 23:50 Rivre Cavanaugh RN * Because of a physical, [...] specified complication, unspecified whether custodial insulin use ([facility]) URINE ASNABKY-PS-ZTWVYWGMEB RATIO (ACR) Routine 11/28/2019 15:56 EDT Type 2 diabetes mellitus with other specified complication, unspecified whether custodial insulin use ([facility]) from Last 3 Months or Most Recently [...] PROB E ORDERABLES Edited Result - Final [facility] * C REACTIVE PROTEIN (03/12/2024) C-Reactive Protein, External 0.57 [facility] POINT OF CARE Blood VENOUS BLOOD / Unknown 03/12/2024 Carrington Calderon MD CHEMISTRY & BLOOD G ORDERABLES Final Result [facility] POINT OF CARE * HEMOGLOBIN A1C (03/12/2024) Hemoglobin A1C, External 11.9 % [facility] POINT OF CARE Est Avg Glucose, External 5.7-6.4 mg/dL [facility] POINT OF CARE Blood VENOUS BLOOD / Unknown 03/12/2024 Carrington Calderon MD CHEMISTRY & BLOOD G ORDERABLES Final Result [facility] POINT OF CARE * HEPATITIS C AB W REFLEX TO HCV RNA BY PCR (11/11/2023 13:53 EDT) Hep C Antibody Negative Negative 11/11/2023 17:03 EDT [facility] Blood VENOUS BLOOD / Unknown Venipuncture / Unknown 11/11/2023 13:53 EDT 11/11/2023 13:55 EDT Carrington Caldeorn MD CHEMISTRY & BLOOD G ORDERABLES Final Result Performing Organization Address [facility] de Phone Number [facility] [address] [place] [address] * HIV 1/2 ANTIGEN AND ANTIBODY, 4TH [...] Fourth Generation assay performed on the Siemens RumbleTalkaur XPT. Carrington Calderon MD IMMUNOLOGY AND SERO LOGY ORDERABLES Final Result Performing Organization Address [facility] Co de Phone Number [facility] [address] [place] [id number] * PAP TEST (06/27/2023 16:00 EST) Specimens A. Cervix and/or Endocervix , ThinPrep Imaging System with Manual Evaluation 07/13/2023 16:25 EST [facility] Specimen Adequacy Satisfactory for Evaluation - transformation zone component absent 07/13/2023 16:25 EST [facility] General Categorization Negative for intraepithelial lesion or malignancy 07/13/2023 16:25 EST [facility] Attestation . 07/13/2023 16:25 [facility] at 1625 Clinical History screening 07/13/19 16:25 [facility] HPV The result for the Human Papillomavirus (HPV) Detection-High Risk Types is Negative. No E6 or E7 mRNA is detected from HPV types 16,18,31,33,35,39 ,45,51,52,56,58,5 9,66, and 68 by slater apprentice mediated amplification.Lorena ting was performed on specimen [id number] and was resulted on 07/13/2023 1625 EST by JANET, LAB INSTRUMENT RESULTS IN 07/13/2023 16:25 [facility] Performing Lab [facility] 07/13/2023 16:25 [facility] Scanned Images 07/13/2023 16:25 [facility] Pap Test CERVIX UTERI STRUCTURE / Unknown 06/27/2023 16:00 EST 06/27/2023 16:00 EST us Carrington Calderon MD PATHOLOGY ORDERABLE S Final Result Performing Organization Address City/State/[facility] Co de Phone Number [facility] [address] [place] [address] * (ABNORMAL) ALBUMIN, URINE (11/28/2019 15:56 EDT) Albumin, Urine 11.3 See Note mg/dL 2019 16:47 [facility] Comment: NOTE: Reference range not established Creatinine, Urine 143.1 See Note mg/dL 11/28/2019 16:47 [facility] Comment: NOTE: Reference range not established Lab Urine Albumin to Creatinine Ratio 79(H) <30 ug/mg Creatinine 11/28/2019 16:47 [facility] Comment: Urine Albumin/Creatinine Ratio: Normal: <30 ug/mg Creatinine Moderately increased albuminuria: 30-300 ug/mg Creatinine Severley increased albuminuria: >300 ug/mg Creatinine Urine URINE SPECIMEN OBTAINED BY CLEAN CATCH PROCEDURE / Unknown Urine Collect / Unknown 11/28/2019 15:56 EDT 11/28/2019 15:56 EDT us Tonja Alejandro PA-C CHEMISTRY & BLOOD GA S ORDERABLES Final Result [facility] [address] [place] [address] * LIPID PROFILE (INCLUDES CHOLESTEROL, TRIGLYCERIDES, HDL, LDL) (11/28/2019 15:56 EDT) Cholesterol 179 See Note mg/dL 11/28/2019 17:12 [facility] Comment: Acceptable: ?<200 mg/dL Borderline High: 200-239 mg/dL High: ?> or = 240 mg/dL HDL 38 See Note mg/dL 11/28/2019 17:12 [facility] Comment: Low: ? <40 mg/dL Normal: ??40-60 mg/dL High: ?>60 mg/dL LDL, Calculated 61 See Note mg/dL 11/28/2019 17:12 [facility] Comment: Optimal: ? <100 mg/dL Near Optimal: ?100-129 mg/dL Borderline High: 130-159 mg/dL High: ?160-189 mg/dL Very High: ? > or = 190 mg/dL Triglyceride 398 See Note mg/dL 11/28/2019 17:12 [facility] Comment: Normal: ? <150 mg/dL Borderline High: ??150 - 199 mg/dL High: ? 200 - 499 mg/dL Very High: ?> or = 500 mg/dL Chol/HDL Ratio 4.7 See Note 11/28/2019 17:12 [facility] Comment: No reference range has been established for CHOL/HDL ratio. Non HDL Cholesterol 141 See Note mg/dL 11/28/2019 17:12 [facility] Comment: Desirable: ?<130 mg/dL Borderline High: ??130-159 mg/dL High: ? 160-189 mg/dL Very High: ?> or = 190 mg/dL Blood VENOUS BLOOD / Unknown Venipuncture / Unknown 11/28/2019 15:56 EDT 11/28/2019 15:56 EDT us Tonja Alejandro PA-C CHEMISTRY & BLOOD GA S ORDERABLES Final Result [facility] [address] [place] [address] from Last 3 Months or Most Recently Relevant to Health Maintenance Administered Medications Advance Directives For more information, please contact: [phone] Documents on File Type Date Recorded Patient Slip Bridge Operator Expl anation Advance Directive 11/23/2022 10:36 [...] participated in the discussion? Patient Care Teams Connection Worker Relationship Specialty Start Date End Date Carrington Calderon MD [facility] [address] [place] [address] PCP - General Internal Medicine - Primary Care 12/09/20 Carmelo Hendrickson Coordinator 12/01/23 Abigail Díaz English As A Second Language Teacher 01/04/24
--- OUTSIDE RECORDS SUMMARY | 2024-06-03 09:01 | XMS_ITS | Encounter Summary ---
Author Organization [facility] Address [address] [place] [address] Care Team Providers Care Card Maker Name Role Phone Carrington Calderon MD Primary Care Provi anders Carmelo Hendrickson Unavailable Unavailable Abigail Díaz Unavailable Encounter Details Date Type Department Care Team (Late st Contact Info) Description 04/06/2024 Abstract [facility] Adult [facility] - [place] [address] [place] [address] Carrington Calderon MD 1 [facility] 1 [place] [address] Social History Tobacco Use Types Packs/Day Years Used Date Smoking Tobacco: Every Day Cigarettes 0.5 13.6 Started: 11/10/2010 Smokeless Tobacco: Never Comments:06/13/20 actively try ing to quit about 5-8 cigs/day Alcohol Use Standard Drinks/Week Comments Yes 0 (1 standard drink = 0.6 oz pur e alcohol) rarely C Utilities Answer Date Recorded In the past 12 months has [employer], gas, oil, or water company threatened to [...] your living situation today? I have a [facility] place to live 04/03/2024 Think [...] CHEMISTRY & BLOOD G ORDERABLES Final Result [facility] POINT OF CARE documented in this encounter Visit Diagnoses Not on filedocumented in this encounter Care Teams Card Maker Relationship Specialty Start Date End Date Carrington Calderon MD 1 [facility] Level [address] [place] [address] PCP - General Internal Medicine - Primary Care 12/09/20 Carmelo Hendrickson Coordinator 12/01/23 Abigail Díaz Cnc Mechanic 01/04/24 documented as of this encounter
--- OUTSIDE RECORDS SUMMARY | 2024-06-03 09:01 | XMS_ITS | Encounter Summary ---
Author Organization [facility] Address [address] [place] [address] Care Team Providers Care Squeegee Finisher Name Role Phone Carrington Caldeorn MD Primary Care Provi anders Carmelo Hendrickson Unavailable Unavailable Abigail Díaz Unavailable [phone] Encounter Details Date Type Department Care Team (Late st Contact Info) Description 04/03/2024 Patient Outreach [facility] Adult Primary Care - [place] [address] [place], [place] [id number] Sivan Krueger RN Social History Tobacco Use Types Packs/Day Years Used Date Smoking Tobacco: Every Day Cigarettes 0.5 13.6 Started: 11/10/2010 Smokeless Tobacco: Never Comments:06/13/20 actively try ing to quit about 5-8 cigs/day Alcohol Use Standard Drinks/Week Comments Yes 0 (1 standard drink = 0.6 oz pur e alcohol) rarely [facility] Utilities Answer Date Recorded In the past 12 months has [employer], gas, oil, or water [employer] threatened to shut off services in your [...] in the past 12 m [facility], were you homeless [...] your living situation today? I have a [facility] place to live 04/03/2024 Think about [...] the past 12 months has th e [place], gas, oil, or water [employer] threatened to shut off services in your [...] Sivan Krueger RN - 04/03/2024 1029 EDT [facility] Integrated Care Management Assessment and Care Plan [...] Carmelo Hendrickson as Coordinator Abigail Díaz as Category Planner Medications: Current Outpatient Medications: acetaminophen (TYLENOL) 325 [...] Disp: 36 mL, Rfl: 4 lancets, Brand: [employer], check glucose 4 times per day for [...] (Non-Medical): No Utilities: Not At Risk (11/15/2023) [facility] Utilities Threatened with loss of [...] at this time. Refer to human resources office manager. DME: none DME vendor: not applicable Barriers to using technology: none identified Preferred method of communication: Text, Phone Call, and Ti Knight Message Cultural, spiritual or language factors affecting health: none identified Existing Community Resources: none Gaps in Resources Identified: none identified Advance Directive on File: Yes Prioritized Patient Identified Goals: (needs to include one self-management goal) 1. Patient will work with human resources office manager to enroll in health insurance within [...] is interested in speaking with human resources office manager and CDE. Patient's access to their plan of care: Patient/family will access electronically through MyChart CM will follow-up in one month SIVAN KRUEGER RN 04/03/2024 10:29 documented in this encounter Plan of Treatment Not on file documented as of this encounter Visit Diagnoses Not on filedocumented in this encounter Care Teams Squeegee Finisher Relationship Specialty Start Date End Date Carrington Calderon MD 1 [facility] 1 [place] [address] PCP - General Internal Medicine - Primary Care 12/09/20 Carmelo Hendrickson Coordinator 12/01/23 Abigail Díaz Category Planner 01/04/24 documented as of this encounter
--- OUTSIDE RECORDS SUMMARY | 2024-06-03 09:01 | XMS_ITS | Encounter Summary ---
Author Organization [facility] Address [address] [place] [address] Care Team Providers Care Roll Icer Machine Name Role Phone Carrington Calderon MD Primary Care Provi anders Carmelo Hendrickson Unavailable Unavailable Abigail Díaz Unavailable Reason for Visit * Reason Comments Follow-up Encounter Details Date Type Department Care Team (Late st Contact Info) Description 02/21/2024 9:45 EDT Office Visit [facility] Adult Primary Care - [address] [phone] Carrington Calderon MD 1 [facility] Level [address] [place] [phone] Type 2 diabetes mellitus with diabetic polyneuropathy, [...] her financialsituation. Will connect her with our addiction social worker who she has met with [...] stopped taking Jardiance after conversation with her medicare compliance auditor, noting risk of lower extremityamputation. Her insurance [...] documented as of this encounter Care Teams Roll Icer Machine Relationship Specialty Start Date End Date Carrington Calderon MD 1 [facility] 1 [place] [phone] PCP - General Internal Medicine - Primary Care 12/09/20 Carmelo Hendrickson Coordinator 12/01/23 Abigail Díaz Dental Specialist 01/04/24 documented as of this encounter
--- OUTSIDE RECORDS SUMMARY | 2024-06-03 09:01 | XMS_ITS | Encounter Summary ---
Author Organization [facility] Address [address] [place] [address] Care Team Providers Care Automobile Insurance Claim Examiner Name Role Phone Carrington Calderon MD Primary Care Provi anders Carmelo Hendrickson Unavailable Unavailable Abigail Díaz Unavailable [phone] Encounter Details Date Type Department Care Team (Late st Contact Info) Description 04/12/2024 Patient Outreach [facility] Adult Primary Care - [place] [address] [place], [place] [id number] Carmelo Hendrickson Social History Tobacco Use Types Packs/Day Years Used Date Smoking Tobacco: Every Day Cigarettes 0.5 13.6 Started: 11/10/2010 Smokeless Tobacco: Never Comments:06/13/20 actively try ing to quit about 5-8 cigs/day Alcohol Use Standard Drinks/Week Comments Yes 0 (1 standard drink = 0.6 oz pur e alcohol) rarely C Utilities Answer Date Recorded In the past 12 months has [employer], gas, oil, or water [employer] threatened to shut off services in your [...] the past 12 months has th e [employer], gas, oil, or water [employer] threatened to shut off services in your [...] * Carmelo Hendrickson - 04/12/2024 1223 EST [facility] Respiratory Manager Follow-up Note Encounter type: Telephone Notes: RC called and LVM again for Stella. Plan / Action Items: RC will send outreach letter and check back. RC will follow up in 1 month. Carmelo Hendrickson 04/12/24 12:23 documented in this encounter Plan of Treatment Not on file documented as of this encounter Visit Diagnoses Not on filedocumented in this encounter Care Teams Automobile Insurance Claim Examiner Relationship Specialty Start Date End Date Carrington Calderon MD 1 [facility] Level [address] [place] [address] PCP - General Internal Medicine - Primary Care 12/09/20 Carmelo Hendrickson Coordinator 12/01/23 Abigail Díaz Detention Sergeant 01/04/24 documented as of this encounter
--- OUTSIDE RECORDS SUMMARY | 2024-06-03 09:01 | XMS_ITS | Encounter Summary ---
Author Organization [facility] Address [address] [place] [address] Care Team Providers Care Satellite Dish Installer Name Role Phone Carrington Calderon MD Primary Care Provi anders Carmelo Hendrickson Unavailable Unavailable Abigail Díaz Unavailable [phone] Reason for Visit * Reason Comments Medications Refill Encounter Details Date Type Department Care Team (Late st Contact Info) Description 01/18/2024 Refill [facility] Adult Primary Care - [address] [id number] Carrington Calderon MD [address] [phone] Medications Refill Social History Tobacco Use Types Packs/Day Years Used Date Smoking Tobacco: Every Day Cigarettes 0.5 13.6 Started: 11/10/2010 Smokeless Tobacco: Never Comments:06/13/20 actively try ing to quit about 5-8 cigs/day Alcohol Use Standard Drinks/Week Comments Yes 0 (1 standard drink = 0.6 oz pur e alcohol) rarely [facility] Utilities Answer Date Recorded In the past 12 months has [employer] e electric, gas, oil, or water company [...] documented as of this encounter Care Teams Satellite Dish Installer Relationship Specialty Start Date End Date Carrington Calderon MD 1 [facility] Level [address] [place] [address] PCP - General Internal Medicine - Primary Care 12/09/20 Carmelo Hendrickson Coordinator 12/01/23 Abigail Díaz [employer] Professional 01/04/24 documented as of this encounter
--- OUTSIDE RECORDS SUMMARY | 2024-06-03 09:01 | XMS_ITS | Encounter Summary ---
Author Organization [facility] Address [address] [place] [address] Care Team Providers Care Flight Attendant Name Role Phone Carrington Calderon MD Primary Care Provi anders Carmelo Hendrickson Unavailable Unavailable Abigail Díaz Unavailable Encounter Details Date Type Department Care Team (Late st Contact Info) Description 01/06/2024 Lab Requisition [facility] Pathology & Laboratory Medicine - [facility] [address] [place] [address] Outr Resulting Lab, Provider Social History Tobacco Use Types Packs/Day Years Used Date Smoking Tobacco: Never Assessed [facility] Utilities Answer Date Recorded In the past 12 months has [employer], gas, oil, or water company threatened to [...] 275 - 295 mOsm/kg 01/06/2024 17:33 EDT [facility] Blood VENOUS BLOOD / Unknown 01/06/2024 11:15 EDT 01/06/2024 17:04 EDT us Provider Outr Resulting Lab CHEMISTRY & BLOOD GA S ORDERABLES Final Result [facility] [address] [place] [address] documented in this encounter Visit Diagnoses Not on filedocumented in this encounter Care Teams Flight Attendant Relationship Specialty Start Date End Date Carrington Calderon MD 1 [facility] Level 1 [place] [address] PCP - General Internal Medicine - Primary Care 12/09/20 Carmelo Hendrickson Coordinator 12/01/23 Abigail Díaz Metals Sales Representative 01/04/24 documented as of this encounter
--- OUTSIDE RECORDS SUMMARY | 2024-06-03 09:01 | XMS_ITS | Encounter Summary ---
Author Organization [facility] Address [address] [place] [address] Care Team Providers Care Ceramic Engineer Name Role Phone Carrington Calderon MD Primary Care Provi anders Carmelo Hendrickson Unavailable Unavailable Abigail Díaz Unavailable [phone] Reason for Visit * Reason Onset Date Comments Neck Pain 02/06/2024 Encounter Details Date Type Department Care Team (Late st Contact Info) Description 02/06/2024 Telephone [facility] Adult Primary Care - [place] [address] [place] [address] Cedric Yoon MD [address] [place] [address] Neck Pain Social History Tobacco Use Types Packs/Day Years Used Date Smoking Tobacco: Every Day Cigarettes 0.5 13.6 Started: 11/10/2010 Smokeless Tobacco: Never Comments:06/13/20 actively try ing to quit about 5-8 cigs/day Alcohol Use Standard Drinks/Week Comments Yes 0 (1 standard drink = 0.6 oz pur e alcohol) rarely [facility] Utilities Answer Date Recorded In [...] Encounter - Jesi Lua RN - 02/22/2024 3212 EDT Pt seen 02/21/24 * Telephone Encounter - Jesi Lua RN - 02/07/2024 0831 EDT Left message for pt to call back to see if she went to a local ER (lives in [facility]) or how is she feeling and [...] on filedocumented in this encounter Care Teams Ceramic Engineer Relationship Specialty Start Date End Date Carrington Calderon MD 1 [facility] Level [address] [place] [phone] PCP - General Internal Medicine - Primary Care 12/09/20 Carmelo Hendrickson Coordinator 12/01/23 Abigail Díaz Supervisor Fireworks Assembly 01/04/24 documented as of this encounter
--- OUTSIDE RECORDS SUMMARY | 2024-06-03 09:01 | XMS_ITS | Encounter Summary ---
Author Organization [facility] Address [address] [place] [address] Care Team Providers Care Insulation Foreman Name Role Phone Carrington Calderon MD Primary Care Provi anders Carmelo Hendrickson Unavailable Unavailable Abigail Díaz Unavailable [phone] Encounter Details Date Type Department Care Team (Late st Contact Info) Description 04/19/2024 Patient Outreach [facility] Adult Primary Care - [place] [address] [place], [place] [phone] Sivan Krueger RN Social History Tobacco Use Types Packs/Day Years Used Date Smoking Tobacco: Every Day Cigarettes 0.5 13.6 Started: 11/10/2010 Smokeless Tobacco: Never Comments:06/13/20 actively try ing to quit about 5-8 cigs/day Alcohol Use Standard Drinks/Week Comments Yes 0 (1 standard drink = 0.6 oz pur e alcohol) rarely [facility] Utilities Answer Date Recorded In the past 12 months has [employer], gas, oil, or water [employer] threatened to shut off services in your [...] time in the past 12 m [facility], were you homeless or living in a [...] the past 12 months has th e [employer], gas, oil, or water [employer] threatened to shut off services in your [...] Sivan Krueger RN - 04/19/2024 0937 EST [facility] Integrated Care Management Care Coordination Note manager valuation has been unable to reach patient by phone for diabetes pathway follow up. Patient has not made contact with resource recovery specialist for help getting health insurance. Patient missed visit with reverberatory furnace operator, and has not followed up to reschedule. PLAN: Follow up in 3 months or sooner if patient returns call. SIVAN KRUEGER RN 04/23/2024 11:27 documented in this encounter Plan of Treatment Not on file documented as of this encounter Visit Diagnoses Not on filedocumented in this encounter Care Teams Insulation Foreman Relationship Specialty Start Date End Date Carrington Calderon MD 1 [facility] 1 [place] [phone] PCP - General Internal Medicine - Primary Care 12/09/20 Carmelo Hendrickson Coordinator 12/01/23 Abigail Díaz Patient Admitting Clerk 01/04/24 documented as of this encounter
--- OUTSIDE RECORDS SUMMARY | 2024-06-03 09:01 | XMS_ITS | Encounter Summary ---
Author Organization [facility] Address [address] [place] [address] Care Team Providers Care Oncology Social Work Name Role Phone Carrington Calderon MD Primary Care Provi anders Carmelo Hendrickson Unavailable Unavailable Abigail Díaz Unavailable Reason for Visit * Reason Onset Date Comments Medication Management 01/06/2024 Encounter Details Date Type Department Care Team (Late st Contact Info) Description 01/06/[address] [facility] Adult Primary Care - [address] [address] Carrington Calderon MD 1 [facility] Level [address] [place] [phone] Medication Management Social History Tobacco Use Types Packs/Day Years Used Date Smoking Tobacco: Every Day Cigarettes 0.5 13.6 Started: 11/10/2010 Smokeless Tobacco: Never Comments:06/13/20 actively try ing to quit about 5-8 cigs/day Alcohol Use Standard Drinks/Week Comments Yes 0 (1 standard drink = 0.6 oz pur e alcohol) rarely [facility] Utilities Answer Date Recorded In the [...] any time in the past 12 m [facility], were you homeless or living in [...] living situation today? I have a [facility] place to live 04/03/2024 Think [...] the past 12 months has th e [employer], gas, oil, or water company threatened to [...] of insulin ([facility]) Brand: Freestyle, check glucose 4 times per day for insulin dose titration 100 Each 11 01/06/2024 blood glucose test stripsIndications: Type 2 diabetes mellitus with diabetic polyneuropathy, with long-term current use of insulin ([facility]) Brand: Freestyle Lite, check glucose 4 times per day for insulin dose titration 100 Each 01/06/2024 blood glucose meterIndications:T ype 2 diabetes mellitus with diabetic polyneuropathy, with long-term current use of insulin ([facility]) Brand: Freestyle Lite 1 Each 01/06/2024 documented in this encounter Miscellaneous Notes * Telephone Encounter - Carrington Calderon MD - 01/06/2024 1234 EDT Madhuri Garsia ordered. Abigail- I see it's been hard to engage her. May be worth another try, particularly to help with getting a CGM, unless you think that's more in [facility] territory. Thanks. * Telephone Encounter - [...] for meter, lancets, and test strips to [facility] pharmacy in [place]. Fermin said patient is currently in the hospital now because her blood sugars have been above 400. documented in this encounter Plan of Treatment Not on file documented as of this encounter Visit Diagnoses Diagnosis Type 2 diabetes mellitus with diabetic polyneuropathy, with long-term current use of insulin ([facility]) ([facility] Primary documented in this encounter Care Teams Oncology Social Work Relationship Specialty Start Date End Date Carrington Calderon MD 1 [facility] Level [address] [place] [address] PCP - General Internal Medicine - Primary Care 12/09/20 Carmelo Hendrickson Coordinator 12/01/23 Abigail Díaz Pyridine Recovery Operator 01/04/24 documented as of this encounter
--- OUTSIDE RECORDS SUMMARY | 2024-06-03 09:01 | XMS_ITS | Encounter Summary ---
Author Organization [facility] Address [address] [place] [address] Care Team Providers Care Secure Software Assessor Name Role Phone Carrington Calderon MD Primary Care Provi anders Carmelo Hendrickson Unavailable Unavailable Abigail Díaz Unavailable [phone] Reason for Referral * Referral (Routine/Next Available) - Authorization Not Required Specialty Diagnoses / Procedures [facility] Multidisciplinary Diagnoses Type 2 diabetes mellitus with foot ulcer (CODE) ([facility]) Carrington Calderon MD 1 [facility] 1 [place] [address] Phone: tel: fax: [address], [address] [place] [address] Phone: tel: fax: Referral ID Status Reason Start Date Expiration Date Visits Requested Visits Authorized [id number] Authorization Not Required Specialty Services Required 03/16/20 24 1 1 Question Answer Reason for Request: uncontrolled diabetes Reason for Visit * Reason Onset Date Comments Coordination Of Care 03/16/2024 Encounter Details Date Type Department Care Team (Late st Contact Info) Description 03/16/2024 Telephone [facility] Adult Primary Care [address] [address] Carrington Calderon MD 1 [facility] Level [address] [place] [phone] Coordination Of Care Social History Tobacco Use Types Packs/Day Years Used Date Smoking Tobacco: Every Day Cigarettes 0.5 13.6 Started: 11/10/2010 Smokeless Tobacco: Never Comments:06/13/20 actively try ing to quit about 5-8 cigs/day Alcohol Use Standard Drinks/Week Comments Yes 0 (1 standard drink = 0.6 oz pur e alcohol) rarely [facility] Utilities Answer Date Recorded In the past 12 months has [employer] electric, gas, oil, or water company [...] to discuss her outside labs received from [facility], notable for WBC 14 and A1C of 11.9. No answer. Reviewed account in [employer]. No data since September. Care management [...] AMB CONS/FOLLOW UP OUTPATIENT CARE MANAGEMENT - [facility] Outpatient Referral Routine/Next Available Type 2 diabetes mellitus with foot ulcer (CODE) ([facility]) Expected: 03/23/2024 (Approximate), Expires: 03/16/2025 documented as of this encounter Visit Diagnoses Diagnosis Type 2 diabetes mellitus with foot ulcer (CODE) ([facility] Primary documented in this encounter Care Teams Secure Software Assessor Relationship Specialty Start Date End Date Carrington Calderon MD 1 [facility] 1 [place] [phone] PCP - General Internal Medicine - Primary Care 12/09/20 Carmelo Hendrickson Coordinator 12/01/23 Abigail Díaz Fisher Troll Line 01/04/24 documented as of this encounter
--- OUTSIDE RECORDS SUMMARY | 2024-06-03 09:01 | XMS_ITS | Encounter Summary ---
Author Organization [facility] Address [address] [place] [address] Care Team Providers Care Assembly Room Supervisor Name Role Phone Carrington Calderon MD Primary Care Provi anders Carmelo Hendrickson Unavailable Unavailable Abigail Díaz Unavailable [phone] Encounter Details Date Type Department Care Team (Late st Contact Info) Description 04/06/2024 Abstract [facility] Adult Primary Care - [place] [address] [place] [address] Carrington Calderon MD [address] [facility] [place] 1 [place] [address] Social History Tobacco Use Types Packs/Day Years Used Date Smoking Tobacco: Every Day Cigarettes 0.5 13.6 Started: 11/10/2010 Smokeless Tobacco: Never Comments:06/13/20 actively try ing to quit about 5-8 cigs/day Alcohol Use Standard Drinks/Week Comments Yes 0 (1 standard drink = 0.6 oz pur e alcohol) rarely C Utilities Answer Date Recorded In the past 12 months has [employer], gas, oil, or water company threatened to [...] in the past 12 m [facility], were you homeless or living [...] your living situation today? I have a [facility] place to live 04/03/2024 Think about [...] A1C (03/12/2024) Hemoglobin A1C, External 11.9 % [facility] POINT OF CARE Est Avg Glucose, External 5.7-6.4 mg/dL [facility] POINT OF CARE Blood VENOUS BLOOD / Unknown 03/12/2024 Carrington Calderon MD CHEMISTRY & BLOOD G ORDERABLES Final Result [facility] POINT OF CARE documented in this encounter Visit Diagnoses Not on filedocumented in this encounter Care Teams Assembly Room Supervisor Relationship Specialty Start Date End Date Carrington Calderon MD [address] [facility] [place] 1 [place] [address] PCP - General Internal Medicine - Primary Care 12/09/20 Carmelo Hendrickson Coordinator 12/01/23 Abigail Díaz Trawl Net Maker 01/04/24 documented as of this encounter
--- OUTSIDE RECORDS SUMMARY | 2024-06-03 09:01 | XMS_ITS | Encounter Summary ---
Author Organization [facility] Address [address] [place] [address] Care Team Providers Care Churner Name Role Phone Carrington Calderon MD Primary Care Provi anders Carmelo Hendrickson Unavailable Unavailable Abigail Díaz Unavailable Encounter Details Date Type Department Care Team (Late st Contact Info) Description 03/22/2024 Patient Outreach [facility] Adult Primary Care - [place] [address] [place], [place] [phone] Nohemy Krueger RN Social History Tobacco Use Types Packs/Day Years Used Date Smoking Tobacco: Every Day Cigarettes 0.5 13.6 Started: 11/10/2010 Smokeless Tobacco: Never Comments:06/13/20 actively try ing to quit about 5-8 cigs/day Alcohol Use Standard Drinks/Week Comments Yes 0 (1 standard drink = 0.6 oz pur e alcohol) rarely [facility] Utilities Answer Date Recorded In the past 12 months has [employer], gas, oil, or water [employer] threatened to shut off services in your [...] your living situation today? I have a [facility] place to live 04/03/2024 Think about [...] the past 12 months has th e [employer], gas, oil, or water [employer] threatened to shut off services in your [...] my care team, like my doctor, nurse, magazine supervisor, piece work checker or pharmacist and I don't know what [...] He works for the state at a financial officer in [facility]. Stella would like help getting insurance. [...] She is interested in meeting with a magazine supervisor. 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 She is interested in managing her diabetes better. Stella's Biggest problem today is lack of health insurance so she can't afford the dex com CGM. This CM will have resource center teacher call Stella to discuss insurance. DM-related Self Management Goal: check glucose 2 times daily on a regular basis. Intervention: referral to resource center teacher, and CDE Follow up plan: CM will follow-up in one month documented in this encounter Plan of Treatment Not on file documented as of this encounter Visit Diagnoses Not on filedocumented in this encounter Care Teams Churner Relationship Specialty Start Date End Date Carrington Calderon MD 1 [facility] 1 [place] [phone] PCP - General Internal Medicine - Primary Care 12/09/20 Carmelo Hendrickson Coordinator 12/01/23 Abigail Díaz Tile Mechanic 01/04/24 documented as of this encounter
--- OUTSIDE RECORDS SUMMARY | 2024-06-03 09:01 | XMS_ITS | Clinical Summary ---
Author Organization [facility] Address [address] [place] [address] Care Team Providers Care Manager Testing Name Role Phone Carrington Calderon MD Primary Care Provi anders Carmelo Hendrickson Unavailable Unavailable Abigail Díaz Unavailable [phone] Allergies Active Allergy Reactions Criticality Noted [...] use of insulin ([facility]) Inject 1 Each into the [...] use of insulin ([facility]) Inject 44 Units into the skin at bedtime. 36 mL Active SITagliptin phosphate (JANUVIA) 100 mg tabletIndications :Type 2 diabetes mellitus with diabetic polyneuropathy, with long-term current use of insulin ([facility]) Take 1 Tablet by mouth [...] 2 diabetes mellitus ([facility]) Take 1 Capsule by mouth every morning AND 4 Capsules at bedtime. 450 Capsule Active SUMAtriptan (IMITREX) 20 mg/actuation nasal spray USE 1 SPRAY(S) INTO RIGHT NOSTRIL NEEDED FOR MIGRAINE HEADACHE 6 Each Active Blood-Glucose Transmitter (DEXCOM G6 TRANSMITTER) deviceIndications :Type 2 diabetes mellitus with diabetic polyneuropathy, with long-term current use of insulin ([facility]) Inject 1 Each into the skin every 3 months. 1 Each 4 024 Active HUMALOG KWIKPEN INSULIN 100 unit/mL injectable penIndications:Ty pe 2 diabetes mellitus with diabetic polyneuropathy, with long-term current use of insulin ([facility]) 8 units with breakfast, 15 [...] use of insulin ([facility]) Brand: Freestyle Lite 1 Each 024 Active blood glucose test stripsIndications :Type 2 diabetes mellitus with diabetic polyneuropathy, with long-term current use of insulin ([facility]) Brand: Freestyle Lite, check glucose 4 times per day for insulin dose titration 100 Each 024 Active lancetsIndication s:Type 2 diabetes mellitus with diabetic polyneuropathy, with long-term current use of insulin ([facility]) Brand: Freestyle, check glucose 4 times per day for insulin dose titration 100 Each 11 024 Active DULoxetine 40 mg capsule,delayed release(DR/EC)Ind ications:Anxiety and depression Take 1 capsule by mouth once daily 90 Capsule 3 024 Active nortriptyline (PAMELOR) 10 mg capsuleIndication s:Diabetic polyneuropathy associated with type 2 diabetes mellitus ([facility]),Primary insomnia Take 1 capsule by mouth at bedtime 30 Capsule Active nortriptyline (PAMELOR) 10 mg capsuleIndication s:Diabetic polyneuropathy associated with type 2 diabetes mellitus ([facility]),Primary insomnia Take 1 Capsule by mouth [...] 06/19 Patient has given permission for [facility] to verbally discuss the following information [...] Confirmed patient has Traditional Medicaid now. TCN: [id number] Category: P2 Garfield Healy 06/10/2020 19:11 Problem Noted Date Diagnosed Date Tobacco use 12/21/2021 Skin infection 12/21/2021 Pannus, abdominal 12/21/2021 Overview (04/01/2022): - as of 01/2022, does not meet criteria for surgical intervention (see 01/29/22 note) Neuropathic diabetic ulcer of foot ([facility]) Cyclic vomiting syndrome 08/10/2020 Overview (06/11/2021): [...] use of insulin ([facility]) 06/05/2020 Overview (11/17/2022): - Dx approx [...] approx 2012 - had SI, treated at [facility]. Marijuana prn to help with stress/anxiety sx -Describes paradoxical effect of citalopram, reportedly resulting in the above admission at [place] Migraine with aura and witho ut status [...] (06/27/2020): Added automatically from request for surgery [id number] of unknown anatomic location 06/20/2020 06/27/2020 Overview (06/27/2020): Clinical Group: M Patient HPI: Cristy Luo is an 35 y.o. , patient with history of ectopic and positive HCG during post operative period for unrelated procedure. Reported cramping to [facility] nurse on 06/19. LMP: End of the first week of May Rh status: B- Rhogam: Given by [facility] 06/20/20 Desired : Unknown Ectopic [...] 06/20/2020: US today and given RhoGham by [facility]. Place in BB per MD [...] repeat HCG 06/25 & U/S 06/25 in [facility]. MARCELO Dale 06/25/20: U/S results - [...] (06/05/2020): Added automatically from request for surgery [id number] Type 2 diabetes mellitus wit h left diabetic foot ulcer ([facility]) 05/03/2020 03/27/2021 Osteomyelitis of great toe o f left foot ([facility]) 03/12/2020 06/11/2021 Diabetic foot ulcer associat ed with diabetes mellitus due to underlying condition ([facility]) 03/07/2020 03/27/2021 Diabetic foot infection ([facility]) 03/06/2020 06/11/2021 Diabetic foot ulcer ([facility]) 03/06/2020 06/11/2021 Cellulitis of great toe of left foot 11/26/2019 06/11/2021 Encounter for sterilization 11/20/2019 06/20/2020 Overview (11/20/2019): Added automatically from request for surgery [id number] Missed 10/12/2019 10/15/2019 Overview (10/15/2019): Clinical Group: [...] PCR results found No results found for: [id number] HgA1c [ ] 1T pending [ ] [...] & Plan (10/01/2019 16:50 EDT): - Reviewed [facility] group practice and clinic flow. [...] Quant Beta HCG = 1652.8 mIU/ml @ [facility] 11/10/2018: Quant Beta HCG, Preg 1,117 mIU/ml* (Ref range: <5 mIU/ml) 11/21/18: Quant Beta HCG 299.98 mIU/mL at [facility] (ref range <2.39) 12/03/18: Quant Beta HCG, 41.94 mIU/ml at [facility] 12/13/18: Quant Beta HCG, 13.63 mIU/ml at [facility] Plan: 10/24/18: per Dr. Coronado repeat HCG [...] go to lab 11/08. States will go 11/09/18.[facility] 11/10/18: Plan per Dr. Almeida, repeat HCG in 1 week (11/17). Results & plan reviewed with Cristy. MARCELO Dale 11/21/18 Pt plans on going to [facility] today. [facility] 11/21/18. [facility] 299.98. Repeat in 1 week. Pt would like to go 11/27/18([facility]) as off from work [facility] 12/01/18: LVM for pt to [...] Cristy with plan. MARCELO Dale 12/25/18: Per [facility] lab last HCG was 12/13, NOS for 12/20, LVM X3, letter sent, will remove from [employer].MARCELO Dale Spontaneous miscarriage 09/04/201510/05 Overview (09/04/2015): 02/18, 08/19. Followed by Dr. López[facility] in OBGYN Type 2 diabetes mellitus ([facility]) 09/03/2015 06/11/2021 Overview (06/11/2021): - Dx approx age 25, possible mixed physiology (type I/II) - intolerant of MFM (diarrhea) Encounters Date Type Department Care Team Description 05/13/[address] [address] Carrington Calderon MD Medications Refill 04/19/2024 Patient Outreach [address] [address] Nohemy Krueger RN 04/12/2024 Patient Outreach [address] [address] Carmelo Hendrickson 04/06/[address] [address] Carrington Calderon MD 04/06/[address] [address] Carrington Calderon MD 04/06/[address] [address] Carrington Calderon MD 04/06/[address] [address] Carrington Calderon MD 04/05/[phone] Farr [address] CD Diabetes (Diabetes pathway patient) 04/03/2024 Patient Outreach [address] [phone] KeerthiCarmelo barragan 04/03/2024 Patient Outreach [facility] Primary [facility][Note 3] [address] [place], [place] [address] Nohemy Krueger RN 03/22/2024 Patient Outreach [facility] Primary [facility][Note 3] [address] [place], [place] [address] Nohemy Krueger RN 03/16/2024 Telephone [facility] [address] [place], [place] [phone] Carrington Calderon MD Coordination Of Care from [...] in OBGYN History of general anesthesia Osteomyelitis ([facility]) of left great toe-s/p amputation Nausea & vomiting occasionally Diabetes ([facility]) A1c 10.3 on - poorly controlled Hx of ectopic 06/20/2020 Hx of migraines Does not exercise 06/13/2020 due to infecte d toe- typically on a normal basis- walk 3 dogs and hiking- climbing stairs is not an issue. Chest pain r/t anxiety Productive cough pt currently qu itting smoking- clear secretions. Diabetes mellitus, type 2 ([facility]) pt check blood sugars [...] Gastroparesis Neuropathic diabetic ulcer o f foot ([facility]) 09/17/2021 Family History Medical History [...] = 0.6 oz pur e alcohol) rarely thereNow Utilities Answer Date Recorded In the past [...] any time in the past 12 [facility], were you homeless or living [...] your living situation today? I have a [facility] place to live 04/03/2024 Think about [...] [facility] or surgical tx 01/2015 SAB 9w0 d SAB Comments:D&C at [facility]; f irst current 08/2015 SAB 10w 0d SAB Comments:D&C at [facility]; 2 nd with current 02/2017 SAB 6w0 d SAB Comments:D&C at [facility]; t hird with current 06/2017 SAB 6w0 d SAB Comments:D&C at [facility]; nonviable seen on US; fourth with current 01/2018 SAB 6w0 d SAB Comments:D&C at [facility] after nonviable on US; had [...] complication, unspecified whether senior care insulin use ([facility]) URINE [id number] RATIO (ACR) Routine 11/28/2019 15:56 EDT Type 2 diabetes mellitus with other specified complication, unspecified whether intermission coordinator insulin use ([facility]) from Last 3 Months or [...] Edited Result - Final Performing Organization Address City/[facility]/ZIP Co de Phone Number [facility] POINT OF CARE * C REACTIVE PROTEIN (03/12/2024) Pathologist [facility] C-Reactive Protein, External 0.57 [facility] POINT OF CARE Blood VENOUS BLOOD / Unknown 03/12/2024 Carrington Calderon MD CHEMISTRY & BLOOD G ORDERABLES Final Result [facility] POINT [facility] CARE * HEMOGLOBIN A1C (03/12/2024) Pathologist [facility] Hemoglobin A1C, External 11.9 % [facility] Est Avg Glucose, External 5.7-6.4 mg/dL [facility] POINT [facility] CARE Blood VENOUS BLOOD / Unknown 03/12/2024 Carrington Calderon MD CHEMISTRY & BLOOD G ORDERABLES Final Result [facility] POINT OF CARE * HEPATITIS C AB W REFLEX TO HCV RNA BY PCR (11/11/2023 13:53 EDT) Pathologist [facility] Hep C Antibody Negative Negative 11/11/2023 17:03 EDT [facility] Blood VENOUS BLOOD / Unknown Venipuncture / Unknown 11/11/2023 13:53 EDT 11/11/2023 13:55 EDT Carrington Calderon MD CHEMISTRY & BLOOD G ORDERABLES Final Result Performing Organization Address [facility]/ZIP Co de Phone Number [facility] [address] [place] [address] * HIV 1/2 ANTIGEN AND ANTIBODY, 4TH GENERATION (11/11/2023 13:53 EDT) HIV 1 and 2 Antibody/p24 Antigen, 4th Generation Negative Negative 11/11/2023 17:04 EDT [facility] Comment:If acute HIV-1 infec tion is suspected in a high risk patient, submit plasma specimen for HIV-1 RNA quantitation test. Blood VENOUS BLOOD / Unknown Venipuncture / Unknown 11/11/2023 13:53 EDT 11/11/2023 13:55 EDT Narrative [facility] - 11/11/2023 17:04 EDT Fourth Generation assay performed on the Siemens [employer] XPT. Carrington Calderon MD IMMUNOLOGY AND SERO LOGY ORDERABLES Final Result Performing Organization Address [facility] Co de Phone Number [facility] [address] [place] [phone] * PAP TEST (06/27/2023 16:00 EST) Specimens A. Cervix and/or Endocervix , ThinPrep Imaging System with Manual Evaluation 07/13/2023 16:25 EST [facility] Specimen Adequacy Satisfactory for Evaluation - transformation zone component absent 07/13/2023 16:25 EST [facility] General Categorization Negative for intraepithelial lesion or malignancy 07/13/2023 16:25 EST [facility] Attestation . 07/13/2023 16:25 [facility] at 1625 Clinical History screening 07/13/19 24 16:25 EST [facility] HPV The result for the Human Papillomavirus (HPV) Detection-High Risk Types is Negative. No E6 or E7 mRNA is detected from HPV types 16,18,31,33,35,39 ,45,51,52,56,58,5 9,66, and 68 by leather grader mediated amplification.Lorena ting was performed on specimen [id number] and was resulted on 07/13/2023 1625 EST by JANET, LAB INSTRUMENT RESULTS IN 07/13/2023 16:25 EST [facility] Performing Lab [facility] 07/13/2023 16:25 EST [facility] Scanned Images 07/13/2023 16:25 EST [facility] Pap Test CERVIX UTERI STRUCTURE / Unknown 06/27/2023 16:00 EST 06/27/2023 16:00 EST us Carrington Calderon MD PATHOLOGY ORDERABLE S Final Result Performing Organization Address City/[facility]/ZIP Co de Phone Number [facility] [address] [place] [phone] * (ABNORMAL) ALBUMIN, URINE (11/28/2019 15:56 EDT) Albumin, Urine 11.3 See Note mg/dL 2019 16:47 EDT [facility] Comment: NOTE: Reference range not established Creatinine, Urine 143.1 See Note mg/dL 11/28/2019 16:47 EDT [facility] Comment: NOTE: Reference range not established Lab Urine Albumin to Creatinine Ratio 79(H) <30 ug/mg Creatinine 11/28/2019 16:47 T [facility] Comment: Urine Albumin/Creatinine Ratio: Normal: <30 ug/mg Creatinine Moderately increased albuminuria: 30-300 ug/mg Creatinine Severley increased albuminuria: >300 ug/mg Creatinine Urine URINE SPECIMEN OBTAINED BY CLEAN CATCH PROCEDURE / Unknown Urine Collect / Unknown 11/28/2019 15:56 EDT 11/28/2019 15:56 EDT us Tonja Alejandro PA-C CHEMISTRY & BLOOD GA S ORDERABLES Final Result [facility] [address] [place] [phone] * LIPID PROFILE (INCLUDES CHOLESTEROL, TRIGLYCERIDES, HDL, LDL) (11/28/2019 15:56 EDT) Cholesterol 179 See Note mg/dL 11/28/2019 17:12 [facility] Comment: Acceptable: ?<200 mg/dL Borderline High: 200-239 mg/dL High: ?> or = 240 mg/dL HDL 38 See Note mg/dL 11/28/2019 17:12 [facility] Comment: Low: ? <40 mg/dL Normal: ??40-60 mg/dL High: ?>60 mg/dL LDL, Calculated 61 See Note mg/dL 11/28/2019 17:12 [facility] Comment: Optimal: ? <100 mg/dL Near Optimal: ?100-129 mg/dL Borderline High: 130-159 mg/dL High: ?160-189 mg/dL Very High: ? > or = 190 mg/dL Triglyceride 398 See Note mg/dL 11/28/2019 17:12 [facility] Comment: Normal: ? <150 mg/dL Borderline High: ??150 - 199 mg/dL High: ? 200 - 499 mg/dL Very High: ?> or = 500 mg/dL Chol/HDL Ratio 4.7 See Note 11/28/2019 17:12 [facility] Comment: No reference range has been established for CHOL/HDL ratio. Non HDL Cholesterol 141 See Note mg/dL 11/28/2019 17:12 [facility] Comment: Desirable: ?<130 mg/dL Borderline High: ??130-159 mg/dL High: ? 160-189 mg/dL Very High: ?> or = 190 mg/dL Blood VENOUS BLOOD / Unknown Venipuncture / Unknown 11/28/2019 15:56 EDT 11/28/2019 15:56 EDT Tonja Alejandro PA-C CHEMISTRY & BLOOD GA S ORDERABLES Final Result [facility] [address] [place] [address] from Last 3 Months or Most Recently Relevant to Health Maintenance Advance Directives For more information, please contact: [phone] Documents on File Type Date Recorded Patient Computer Programming Manager Expl anation Advance Directive 11/23/2022 10:36 Appt [...] participated in the discussion? Patient Care Teams Manager Testing Relationship Specialty Start Date End Date Carrington Calderon MD 1 [facility] [address] [place] [phone] PCP - General Internal Medicine - Primary Care 12/09/20 Carmelo Hendrickson Coordinator 12/01/23 Abigail Díaz Breaker Off 01/04/24
--- OUTSIDE RECORDS SUMMARY | 2024-06-03 09:02 | XMS_ITS | Encounter Summary ---
Author Organization [facility] Address [address] [place] [address] Care Team Providers Care Recordist Name Role Phone Carrington Calderon MD Primary Care Provi anders Abigail Díaz Unavailable Carmelo Hendrickson Unavailable Unavailable Encounter Details Date Type Department Care Team (Late st Contact Info) Description 12/07/2023 Patient Outreach [facility] Adult Primary Care - [place] [address] [place], [place] [phone] Carmelo Hendrickson Social History Tobacco Use Types Packs/Day Years Used Date Smoking Tobacco: Every Day Cigarettes 0.5 13.6 Started: 11/10/2010 Smokeless Tobacco: Never Comments:06/13/20 actively try ing to quit about 5-8 cigs/day Alcohol Use Standard Drinks/Week Comments Yes 0 (1 standard drink = 0.6 oz pur e alcohol) rarely C Utilities Answer Date Recorded In the past 12 months has [employer], gas, oil, or water [employer] threatened to shut off services in your [...] * Carmelo Hendrickson - 12/07/2023 0957 EDT [facility] Pruner Follow-up Note Encounter type: Telephone Notes: RC left a voicemail for Stella to follow up about resource coordination support. Plan / Action Items: RC will follow up in 1 week. Carmelo Hendrickson 12/07/23 9:57 documented in this encounter Plan of Treatment Not on file documented as of this encounter Visit Diagnoses Not on filedocumented in this encounter Care Teams Recordist Relationship Specialty Start Date End Date Carrington Calderon MD 1 [facility] 1 [place] [phone] PCP - General Internal Medicine - Primary Care 12/09/20 Abigail Díaz Manager Car 04/21/23 01/03/24 Carmelo Hendrickson Coordinator 12/01/23 documented as of this encounter
--- OUTSIDE RECORDS SUMMARY | 2024-06-03 09:02 | XMS_ITS | Encounter Summary ---
Author Organization [facility] Address [address] [place] [address] Care Team Providers Care Belt Tender Name Role Phone Carrington Calderon MD Primary Care Provi anders Abigail Díaz Unavailable [phone] Reason for Visit * Reason Onset Date Comments Results 07/25/2023 XRAY right ankle Encounter Details Date Type Department Care Team (Late st Contact Info) Description 07/25/2023 Telephone [facility] Adult Primary Care - [address] [address] Carrington Calderon MD 1 [facility] Level [address] [place] [phone] Results (XRAY right ankle) Social History [...] in a [facility] (including now)? No 06/14/2023 Interpersonal Safety Answer [...] on filedocumented in this encounter Care Teams Belt Tender Relationship Specialty Start Date End Date Carrington Calderon MD 1 [facility] 1 [place] [phone] PCP - General Internal Medicine - Primary Care 12/09/20 Abigail Díaz Regional Sales Coordinator 04/21/23 01/03/24 documented as of this encounter
--- OUTSIDE RECORDS SUMMARY | 2024-06-03 09:02 | XMS_ITS | Encounter Summary ---
Author Organization [facility] Address [address] [place] [address] Care Team Providers Care Sqe Name Role Phone Carly Calderon MD Primary Care Provi anders Abigail Díaz Unavailable Reason for Referral * Consult (Routine/Next Available) - Closed Specialty Diagnoses / Procedures Referred By Kit goode Referred To Contact Sleep Medicine Diagnoses Primary insomnia Carly Calderon MD Phone: tel: fax: [facility] Sleep [facility] - [address] [address] Phone: tel: fax: Referral ID Status Reason Start Date Expiration Date V isits Requested Visits Authorized [id number] Closed Specialty Services Required 06/27/2023 1 1 Question Answer Reason for referral Diffifulty initiating sleep, Difficulty maintaining sleep Patient Type: Adult * Consult (Routine/Next Available) - Specialty Report Received Specialty Diagnoses / Procedures Referred By Kit goode Referred To Contact Hematology Diagnoses Night sweats Lymphocytosis Carly Calderon MD Phone: tel: fax: [facility] Hematology & Oncology - Main [address] [address] Phone: tel: fax: Referral ID Status Reason Start Date Expiration Date Visits Requested Visits Authorized [id number] Specialty Report Received Specialty Services Required 06/27/2023 1 1 Question Answer Reason for Request: night sweats Reason for Visit * Reason Comments Annual Exam Gynecologic Exam Encounter Details Date Type Department Care Team (Late st Contact Info) Description 06/27/2023 14:45 EST Office Visit [facility] Adult Primary Care - [address] [address] Carly Calderon MD 1 [facility] Level 1 [place] [address] Cyclic vomiting syndrome (Primary Dx); [...] with type 2 diabetes mellitus ([facility]) Take 1 Capsule by mouth every [...] long-term current use of insulin ([facility]) Take 1 Tablet by mouth daily. 90 Tablet 4 06/27/2023 insulin glargine (LANTUS SOLOSTAR/SEMGLEE) 100 unit/mL (3 mL) injection penIndications:Type 2 diabetes mellitus with diabetic polyneuropathy, with long-term current use of insulin ([facility]) Inject 44 Units into the skin at bedtime. 36 mL 4 06/27/2023 ondansetron (ZOFRAN-ODT) 4 mg disintegrating tabletIndications:Cy clic vomiting syndrome Take 1 Tablet by mouth every 8 hours as needed for Nausea. 30 Tablet 11 06/27/2023 SUMAtriptan (IMITREX) 20 mg/actuation nasal spray Instill 1 [place] into right nostril as needed for Migraine. 6 Each 1 06/27/2023 4 empagliflozin (JARDIANCE) 25 mg tabletIndications:Ty pe 2 diabetes mellitus with diabetic polyneuropathy, with long-term current use of insulin ([facility]) Take 1 Tablet by mouth daily. 90 Tablet 4 06/27/2023 4 HUMALOG KWIKPEN INSULIN 100 unit/mL injectable penIndications:Type 2 diabetes mellitus with diabetic polyneuropathy, with long-term current use of insulin ([facility]) 8 units with breakfast, 12 [...] Notes * Carly Calderon MD - 06/27/2023 7215 EST Images from the original note were [...] polyneuropathy, with long-term current use of insulin ([facility]): CGM data reviewed in detail [...] with type 2 diabetes mellitus ([facility]): We discussed considering an increase in [...] Luis Wilson present during the exam as mold changer and observation assistant. - PAP TEST Candidal intertrigo: Rash [...] tried this. She continues to take Reglan lvnscz-agk-ftqvg and both during and her episodes of [...] Risk types, PCR Negative Negative 07/13/2023 16:25 [facility] Comment:No E6 or E7 mRNA is detected from HPV types 16,18,31,33,35,39,45,51,52,56,58,59,66, and 68 by supply chain technician mediated amplification. Pap Test CERVIX UTERI STRUCTURE / Unknown 06/27/2023 16:00 EST 07/11/2023 13:44 EST Carly Calderon MD MICROBIOLOGY - GENE RAL ORDERABLES Final Result [facility] [address] [place] [id number] * PAP TEST (06/27/2023 16:00 EST) Specimens A. Cervix and/or Endocervix , ThinPrep Imaging System with Manual Evaluation 07/13/2023 16:25 [facility] Specimen Adequacy Satisfactory for Evaluation - transformation zone component absent 07/13/2023 16:25 [facility] General Categorization Negative for intraepithelial lesion or malignancy 07/13/2023 16:25 [facility] Attestation . 07/13/2023 16:25 [facility] at 1625 Clinical History screening 07/13/19 24 16:25 [facility] HPV The result for the Human Papillomavirus (HPV) Detection-High Risk Types is Negative. No E6 or E7 mRNA is detected from HPV types 16,18,31,33,35,39 ,45,51,52,56,58,5 9,66, and 68 by supply chain technician mediated amplification.Lorena ting was performed on specimen [id number] and was resulted on 07/13/2023 1625 EST by JANET, LAB INSTRUMENT RESULTS IN 07/13/2023 16:25 EST [facility] Performing Lab [facility] 07/13/2023 16:25 EST [facility] Scanned Images 07/13/2023 16:25 EST [facility] Pap Test CERVIX UTERI STRUCTURE / Unknown 06/27/2023 16:00 EST 06/27/2023 16:00 EST us Carly Calderon MD PATHOLOGY ORDERABLE S Final Result [facility] [address] [place] [address] documented in this encounter Visit Diagnoses Diagnosis Cyclic vomiting syndrome- Primary Persistent vomiting Anxiety Anxiety state, unspecified Chronic midline low back pain without sciatica Type 2 diabetes mellitus with diabetic polyneuropathy, with long-term current use of insulin ([facility]) Primary insomnia Persistent disorder of initiating [...] Reorder 11/17/2022 06/27/2023 traMADol (ULTRAM) 50 mg tabletIndications:Video Operator gordo midline low back pain without [...] long-term current use of insulin ([facility]) One Touch Verio Flex meter. 12/21/2021 06/27/2023 empagliflozin (JARDIANCE ORAL) Take by mouth. 06/27/2023 SEMGLEE,INSULIN GLARG-YFGN,PEN 100 unit/mL (3 mL) insulin pen INJECT 40 UNITS SUBCUTANEOUSLY AT BEDTIME 04/01/2023 06/27/2023 SITagliptin phosphate (JANUVIA) 100 mg tabletIndications:Type 2 diabetes mellitus with diabetic polyneuropathy, with long-term current use of insulin ([facility]) Take 1 Tablet by mouth daily. Reorder 11/17/2022 06/27/2023 insulin glargine (LANTUS SOLOSTAR/SEMGLEE) 100 unit/mL (3 mL) injection penIndications:Type 2 diabetes mellitus with diabetic polyneuropathy, with long-term current use of insulin ([facility]) Inject 40 Units into the skin at bedtime. Reorder 11/17/2022 06/27/2023 HUMALOG KWIKPEN INSULIN 100 unit/mL injectable penIndications:Type 2 diabetes mellitus with diabetic polyneuropathy, with long-term current use of insulin ([facility]) Inject 12 Units into the skin 3 times daily with meals. Reorder 04/04/2023 06/27/2023 SUMAtriptan (IMITREX) 20 mg/actuation nasal spray Instill 1 [place] into right nostril as needed for Migraine. Reorder 05/13/2023 06/27/2023 metoclopramide HCl (REGLAN) 10 mg tablet Take 1 Tablet by mouth 3 times daily before meals. Reorder 03/02/2022 06/27/2023 gabapentin (NEURONTIN) 300 mg capsuleIndications:Charo betic polyneuropathy associated with type 2 diabetes mellitus ([facility]) Take 1 Capsule by mouth every morning AND 3 Capsules at bedtime. Reorder 11/17/2022 06/27/2023 documented as of this encounter Care Teams Sqe Relationship Specialty Start Date End Date Carly Calderon MD 1 [facility] 1 [place] [phone] PCP - General Internal Medicine - Primary Care 12/09/20 Abigail Díaz Telephone Coin Box Collector 04/21/23 01/03/24 documented as of this encounter
--- OUTSIDE RECORDS SUMMARY | 2024-06-03 09:02 | XMS_ITS | Encounter Summary ---
Author Organization [facility] Address [address] [place] [address] Care Team Providers Care Medical Operations Supervisor Name Role Phone Carrington Calderon MD Primary Care Provi anders Abigail Díaz Unavailable Reason for Visit * Reason Comments Coordination Of Care Encounter Details Date Type Department Care Team (Late st Contact Info) Description 11/18/2023 Community Health Team [facility] Adult Primary Care - [address] [phone] Care Management, [facility] Social History Tobacco Use Types Packs/Day Years Used Date Smoking Tobacco: Every Day Cigarettes 0.5 13.6 Started: 11/10/2010 Smokeless Tobacco: Never Comments:06/13/20 actively try ing to quit about 5-8 cigs/day Alcohol Use Standard Drinks/Week Comments Yes 0 (1 standard drink = 0.6 oz pur e alcohol) rarely C Utilities Answer Date Recorded In the past 12 months has [employer], gas, oil, or water [employer] threatened to shut off services in your [...] * Nery Stokes - 11/18/2023 0945 EDT [facility] Wool Broker Date: 11/18/23 Referred by: Abigail Williamson PCP: Carrington Calderon Encounter type: Phone Reason for Referral: [employer], Financial Notes: This Wool Broker called Stella at scheduled date/time and left a voicemail offering to reschedule with direct contact information. Plan / Action Items: This Wool Broker sent a MyChart message offering to reschedule. Pending reply from Stella. If no response by November 29, this Wool Broker will place a call toLiz informing if no reply by 12/16/23, the referral will be closed. Assistance is available with a new referral if the referral is closed. Nery Stokes 11/18/23 9:45 documented in this encounter Plan of Treatment Not on file documented as of this encounter Visit Diagnoses Not on filedocumented in this encounter Care Teams Medical Operations Supervisor Relationship Specialty Start Date End Date Carrington Calderon MD 1 [facility] Level 1 [place] [address] PCP - General Internal Medicine - Primary Care 12/09/20 Abigail Díaz Harvest Manager 04/21/23 01/03/24 documented as of this encounter
--- OUTSIDE RECORDS SUMMARY | 2024-06-03 09:02 | XMS_ITS | Encounter Summary ---
Author Organization [facility] Address [address] [place] [address] Care Team Providers Care Honing Machine Try Out Setter Name Role Phone Carrington Calderon MD Primary Care Provi anders Abigail Díaz Unavailable Reason for Visit * Reason Comments Follow-up Gastroparesis / 6 Mo [facility] Follow-Up * Consult (Routine) - Receiving Office to Obtain Authorization Specialty Diagnoses / Procedures Referred By Kit goode Referred To Contact Diagnoses Gastroparesis Dale Collier MD [address] [place] [address] [place] [address] Phone: tel: fax: [facility] [address] [address] Phone: tel: fax: Referral ID Status Reason Start Date Expiration Date Visits Requested Visits Authorized [id number] Receiving Office to Obtain Authorization Specialty Services Required 1 1 Encounter Details Date Type Department Care Team (Late st Contact Info) Description 11/16/2023 11:00 EDT Telemedicine [facility] - [address] [phone] Scott Arzate MD [address] [place] [address], [address] [place] [phone] Cyclic vomiting syndrome (Primary Dx) Social History [...] rarely [facility] Esanexities Answer Date Recorded In the past 12 months has th e [employer], gas, oil, or water [employer] threatened to shut off services in your [...] lives) Patient location state: Visit Location State: [place] [...] vomiting documented in this encounter Care Teams Honing Machine Try Out Setter Relationship Specialty Start Date End Date Carrington Calderon MD 1 [facility] 1 [place] [phone] PCP - General Internal Medicine - Primary Care 12/09/20 Abigail Díaz Supervisor Type Photography 04/21/23 01/03/24 documented as of this encounter
--- OUTSIDE RECORDS SUMMARY | 2024-06-03 09:02 | XMS_ITS | Encounter Summary ---
Author Organization [facility] Address [address] [place] [address] Care Team Providers Care Manager Community Name Role Phone Carrington Calderon MD Primary Care Provi anders Abigail Díaz Unavailable Carmelo Hendrickson Unavailable Unavailable Reason for Visit * Reason Comments Pre-op Exam Encounter Details Date Type Department Care Team (Late st Contact Info) Description 12/01/2023 15:45 EDT Office Visit [facility] Adult Primary Care - [place] [address] [place] [address] Nimisha Clifton NP 1 [facility] Level 1 [place] [address] Neuropathic diabetic ulcer of foot [...] Recorded In the past 12 months has [employer], gas, oil, or water company threatened [...] exam. Has been followed closely by her rectifying attendant for ongoing foot infection, the plan is [...] with long-term current use of insulin ([facility]) ([facility]) ??? Gastroparesis ??? Neuropathic diabetic [...] has a referral for therapy. ??? Diabetes ([facility]) A1c 10.3 on 11/28/2019 - poorly controlled ??? Diabetes mellitus, type 2 ([facility]) pt check blood sugars at home- X [...] occasionally ??? Neuropathic diabetic ulcer of foot ([facility]) 09/17/2021 ??? Obesity, unspecified ??? Osteomyelitis ([facility]) of left great toe-s/p amputation [...] Diagnoses Diagnosis Neuropathic diabetic ulcer of foot ([facility])- Primary Type II or unspecified type diabetes mellitus with other specified manifestations, not stated as uncontrolled Pre-op exam Preoperative examination, unspecified documented in this encounter Care Teams Manager Community Relationship Specialty Start Date End Date Carrington Calderon MD 1 [facility] 1 [place] [address] PCP - General Internal Medicine - Primary Care 12/09/20 Abigail Díaz Tractor Crane Engineer 04/21/23 01/03/24 Carmelo Hendrickson Coordinator 12/01/23 documented as of this encounter
--- OUTSIDE RECORDS SUMMARY | 2024-06-03 09:02 | XMS_ITS | Encounter Summary ---
Author Organization [facility] Address [address] [place] [address] Care Team Providers Care Watch Train Inspector Name Role Phone Carrington Calderon MD Primary Care Provi anders Abigail Díaz Unavailable Carmelo Hendrickson Unavailable Unavailable Encounter Details Date Type Department Care Team (Late st Contact Info) Description 12/02/2023 Patient Outreach [facility] Adult Primary Care - [place] [address] [place], [place] [phone] Carmelo Hendrickson Social History Tobacco Use Types Packs/Day Years Used Date Smoking Tobacco: Every Day Cigarettes 0.5 13.6 Started: 11/10/2010 Smokeless Tobacco: Never Comments:06/13/20 actively try ing to quit about 5-8 cigs/day Alcohol Use Standard Drinks/Week Comments Yes 0 (1 standard drink = 0.6 oz pur e alcohol) rarely [facility] Utilities Answer Date Recorded In the past 12 months has [employer], gas, oil, or water [employer] threatened to shut off services in [...] any time in the past 12 m [facility], were you homeless or living in [...] Carmelo Hendrickson - 12/02/2023 1238 EDT [facility] Digital Asset Specialist Initial Note Referred by: Abigail Díaz [facility] PCP: Carrington Calderon Encounter type: Telephone Reason for Referral: [employer] and other economic programs Notes: This Digital Asset Specialist (RC) called Stella and talked to her about signing up for [employer], as well as about health insurance. Stella reports a change in her family's employment situation and this RC walked her through how to sign up for health insurance through the [place] [employer] connect website given a potential special enrollment [...] Date End Date Carrington Calderon MD 1 [facility] Level 1 [place] [address] PCP - General Internal Medicine - Primary Care 12/09/20 Abigail Díaz Vibratory Pile Driver 04/21/23 01/03/24 Carmelo Hendrickson Coordinator 12/01/23 documented as of this encounter
--- OUTSIDE RECORDS SUMMARY | 2024-06-03 09:02 | XMS_ITS | Encounter Summary ---
Author Organization [facility] Address [address] [place] [address] Care Team Providers Care Fermenter Operator Name Role Phone Carrington Calderon MD Primary Care Provi anders Abigail Díaz Unavailable Reason for Visit * Reason Comments Nicotine Dependence Encounter Details Date Type Department Care Team (Late st Contact Info) Description 05/17/2023 Community Health Team [facility] Adult Primary Care - [place] [address] [place], [place] [phone] Kylah Wilson Social History Tobacco Use Types [...] on filedocumented in this encounter Care Teams Fermenter Operator Relationship Specialty Start Date End Date Carrington Calderon MD 1 [facility] 1 [place] [address] PCP - General Internal Medicine - Primary Care 12/09/20 Abigail Díaz Corporate Accounting Manager 04/21/23 01/03/24 documented as of this encounter
--- OUTSIDE RECORDS SUMMARY | 2024-06-03 09:02 | XMS_ITS | Encounter Summary ---
Author Organization [facility] Address [address] [place] [address] Care Team Providers Care Search Engine Marketing Specialist Name Role Phone Carrington Calderon MD Primary Care Provi anders Abigail Díaz Unavailable Reason for Visit * Reason Comments New Patient Visit * Consult (Routine/Next Available) - Specialty Report Received Specialty Diagnoses / Procedures Referred By Kit goode Referred To Contact Hematology Diagnoses Night sweats Lymphocytosis Carrington Calderon MD Phone: tel: fax: [facility] On[facility] [address] [address] Phone: tel: fax: Referral ID Status Reason Start Date Expiration Date Visits Requested Visits Authorized [id number] Specialty Report Received Specialty Services Required 06/27/2023 1 1 Encounter Details Date Type Department Care Team (Late st Contact Info) Description 08/05/2023 11:00 EST Office Visit [facility] Hematology & Oncology [address] [phone] Josh Clayton MD [address] [facility] 2 [place] [phone] Bandemia (Primary Dx) Social History Tobacco Use [...] results, and documentation. 08/05/2023 Josh Clayton MD Drawing In Machine Tender Helper, Division of Hematology / Oncology [facility] -------- NON FACE TO FACE PROLONGED SERVICES Date of related Ljxy-va-Hruj encounter 08/05/2023. Pre visit preparation performed on [...] documented in this encounter Care Teams Search Engine Marketing Specialist Relationship Specialty Start Date End Date Carrington Calderon MD 1 [facility] 1 [place] [address] PCP - General Internal Medicine - Primary Care 12/09/20 Abigail Díaz Microbiology Coordinator 04/21/23 01/03/24 documented as of this encounter
--- OUTSIDE RECORDS SUMMARY | 2024-06-03 09:02 | XMS_ITS | Encounter Summary ---
Author Organization [facility] Address [address] [place] [address] Care Team Providers Care Lunchroom Attendant Name Role Phone Carrington Calderon MD Primary Care Provi anders Abigail Díaz Unavailable Reason for Visit * Reason Onset Date Comments Appointment Related 06/20/2023 Encounter Details Date Type Department Care Team (Late st Contact Info) Description 06/20/2023 Telephone [facility] Adult Primary Care - [address] [address] Carrington Calderon MD 1 [facility] Level 1 [place] [address] Appointment Related Social History Tobacco [...] on filedocumented in this encounter Care Teams Lunchroom Attendant Relationship Specialty Start Date End Date Carrington Calderon MD 1 [facility] 1 [place] [address] PCP - General Internal Medicine - Primary Care 12/09/20 Abigail Díaz Cutter Machine 04/21/23 01/03/24 documented as of this encounter
--- OUTSIDE RECORDS SUMMARY | 2024-06-03 09:02 | XMS_ITS | Encounter Summary ---
Author Organization [facility] Address [address] [place] [address] Care Team Providers Care Crop And Soil Technician Name Role Phone Carrington Calderon MD Primary Care Provi anders BreAbigail Unavailable [phone] Reason for Referral * Radiology Services (Routine/Next Available) - Authorization Not Required Specialty Diagnoses / Procedures Referred By Contac t Referred To Contact Diagnoses Pain in right ankle and joints of right foot Procedures XR ANKLE RIGHT 3 OR MORE VIEWS Kylah Vázquez PA [address] [place] [phone] Phone: tel: fax: [facility] Referral ID Status Reason Start Date Expiration Date Visits Requested Visits Authorized [id number] Authorization Not Required 07/25/2023 1 1 Reason for Visit * Radiology Services (Routine/Next Available) - Authorization Not Required Specialty Diagnoses / Procedures Referred By Contac t Referred To Contact Diagnoses Pain in right ankle and joints of right foot Procedures XR ANKLE RIGHT 3 OR MORE VIEWS Kylah Vázquez PA [address] [place] [phone] Phone: tel: fax: [facility] Referral ID Status Reason Start Date Expiration Date Visits Requested Visits Authorized [id number] Authorization Not Required 07/25/2023 1 1 Encounter Details Date Type Department Care Team (Latest Contact Info) Description 07/25/2023 13:24 EST - 07/25/2023 23:59 EST Hospital Encounter [facility] Radiology Xray Outpatient - [place] [phone] Pain in right ankle and joints of [...] of insulin ([facility]) Inject 1 Each into the skin every 10 days. 9 Each 4 3 Blood-Glucose Transmitter (DEXCOM G6 TRANSMITTER) deviceIndications:T ype 2 diabetes mellitus with diabetic polyneuropathy, with long-term current use of insulin ([facility]) Inject 1 Each into the skin every 3 months. 1 Each 4 4 gabapentin (NEURONTIN) 300 mg capsuleIndications: Diabetic polyneuropathy associated with type 2 diabetes mellitus ([facility]) Take 1 Capsule by mouth every morning AND 4 Capsules at bedtime. 450 Capsule 4 4 insulin glargine (LANTUS SOLOSTAR/SEMGLEE) 100 unit/mL (3 mL) injection penIndications:Type 2 diabetes mellitus with diabetic polyneuropathy, with long-term current use of insulin ([facility]) Inject 44 Units into [...] of insulin ([facility]) Take 1 Tablet by [...] of insulin ([facility]) Take 1 Tablet by mouth daily. 90 Tablet 4 02/21/20 24 HUMALOG KWIKPEN INSULIN 100 unit/mL injectable penIndications:Type 2 diabetes mellitus with diabetic polyneuropathy, with long-term current use of insulin ([facility]) 8 units with breakfast, 12 [...] on the plantar surface of the calcaneus. [id number] Narrative 07/25/2023 16:12 EST EXAM/TECHNIQUE: XR ANKLE [...] on the plantar surface of the calcaneus. [id number] us Kylah DAWSON IMG DIAGNOSTIC IMAGING ORDERABL ES Final Result documented in this encounter Visit Diagnoses Diagnosis Pain in right ankle and joints of right foot documented in this encounter Care Teams Crop And Soil Technician Relationship Specialty Start Date End Date Carrington Calderon MD 1 [facility] 1 [place] [phone] PCP - General Internal Medicine - Primary Care 12/09/20 Abigail Díaz Muffle Operator 04/21/23 01/03/24 documented as of this encounter
--- OUTSIDE RECORDS SUMMARY | 2024-06-03 09:02 | XMS_ITS | Encounter Summary ---
Author Organization [facility] Address [address] [place] [address] Care Team Providers Care Support Services Tech Name Role Phone Carrington Calderon MD Primary Care Provi anders Abigail Díaz Unavailable Carmelo Hendrickson Unavailable Unavailable Encounter Details Date Type Department Care Team (Late st Contact Info) Description 12/14/2023 Patient Outreach [facility] Adult Primary Care - [place] 1 [place], [place] [phone] Carmelo Hendrickson Social History Tobacco Use Types Packs/Day Years Used Date Smoking Tobacco: Every Day Cigarettes 0.5 13.6 Started: 11/10/2010 Smokeless Tobacco: Never Comments:06/13/20 actively try ing to quit about 5-8 cigs/day Alcohol Use Standard Drinks/Week Comments Yes 0 (1 standard drink = 0.6 oz pur e alcohol) rarely C Utilities Answer Date Recorded In the past 12 months has [employer], gas, oil, or water [employer] threatened to shut off services in your [...] Hendrickson - 12/14/2023 1234 EDT [facility] Stock Unloader Follow-up Note Encounter type: Telephone Notes: RC [...] on filedocumented in this encounter Care Teams Support Services Tech Relationship Specialty Start Date End Date Carrington Calderon MD 1 [facility] 1 [place] [address] PCP - General Internal Medicine - Primary Care 12/09/20 Abigail Díaz Trim Technician 04/21/23 01/03/24 Carmelo Hendrickson Coordinator 12/01/23 documented as of this encounter
--- OUTSIDE RECORDS SUMMARY | 2024-06-03 09:02 | XMS_ITS | Encounter Summary ---
Author Organization [facility] Address [address] [place] [address] Care Team Providers Care Bench Lathe Operator Name Role Phone Carrignton Calderon MD Primary Care Provi anders Abigail Díaz Unavailable Carmelo Hendrickson Unavailable Unavailable Abigail Díaz Unavailable Encounter Details Date Type Department Care Team (Late st Contact Info) Description 12/15/2023 Patient Outreach [facility] Adult Primary Care - [address] [phone] Abigail Díaz Social History Tobacco Use Types Packs/Day Years Used Date Smoking Tobacco: Every Day Cigarettes 0.5 13.6 Started: 11/10/2010 Smokeless Tobacco: Never Comments:06/13/20 actively try ing to quit about 5-8 cigs/day Alcohol Use Standard Drinks/Week Comments Yes 0 (1 standard drink = 0.6 oz pur e alcohol) rarely [facility] Utilities Answer Date Recorded In the past 12 months has [employer], gas, oil, or water company threatened to [...] Progress Notes * Abigail Díaz - 12/15/2023 7399 EDT [facility] Gasoline Dragline Operator Care Coordination Care management phone consult as scheduled, pt did not answer phone. information systems project manager called and left voicemail requesting call back to reschedule. documented in this encounter Plan of Treatment Not on file documented as of this encounter Visit Diagnoses Not on filedocumented in this encounter Care Teams Bench Lathe Operator Relationship Specialty Start Date End Date Carrington Calderon MD 1 [facility] 1 [place] [address] PCP - General Internal Medicine - Primary Care 12/09/20 Abigail Díaz Gasoline Dragline Operator 04/21/23 01/03/24 Carmelo Hendrickson Coordinator 12/01/23 Abigail Díaz Gasoline Dragline Operator 01/04/24 documented as of this encounter
--- OUTSIDE RECORDS SUMMARY | 2024-06-03 09:02 | XMS_ITS | Encounter Summary ---
Author Organization [facility] Address [address] [place] [address] Care Team Providers Care Sheetmetal Worker Name Role Phone Carrington Calderon MD Primary Care Provi anders Abigail Díaz Unavailable Carmelo Hendrickson Unavailable Unavailable Abigail Díaz Unavailable Reason for Referral * Radiology Services (Routine/Next Available) - Authorization Not Required Specialty Diagnoses / Procedures [facility] Referred To Contact Nuclear Medicine Diagnoses Subclinical hyperthyroidism Procedures NM THYROID UPTAKE AND SCAN [place] IODINE I-123 SOD IODIDE EMILY Carrington Calderon MD [address] [place] [phone] Phone: tel: fax: [facility] Referral ID Status Reason Start Date Expiration Date Visits Requested Visits Authorized [id number] Authorization Not Required 12/06/2023 1 1 Reason for Visit * Reason Onset Date Comments Results 11/22/2023 Encounter Details Date Type Department Care Team (Late st Contact Info) Description 11/22/2023 Telephone [facility] Adult Primary Care - [address] [address] Carrington Calderon MD [address] [phone] Results Social History Tobacco Use [...] the past 12 months has th e [employer], [employer], oil, or water [employer] threatened to shut off services in your [...] any time in the past 12 m [facility], were you homeless or living [...] storm documented in this encounter Care Teams Sheetmetal Worker Relationship Specialty Start Date End Date Carrington Calderon MD 1 [facility] 1 [place] [address] PCP - General Internal Medicine - Primary Care 12/09/20 Abigail Díaz Medical Claims Processor 04/21/23 01/03/24 Carmelo Hendrickson Coordinator 12/01/23 Abigail Díaz Medical Claims Processor 01/04/24 documented as of this encounter
--- OUTSIDE RECORDS SUMMARY | 2024-06-03 09:02 | XMS_ITS | Encounter Summary ---
Author Organization [facility] Address [address] [place] [address] Care Team Providers Care Rim Turning Finisher Name Role Phone Carrington Calderon MD Primary Care Provi anders Abigail Díaz Unavailable [phone] Reason for Visit * Reason Onset Date Comments Service Vehicle Operator Message 05/26/2023 Encounter Details Date Type Department Care Team (Late st Contact Info) Description 05/26/2023 Telephone [facility] Adult Primary Care - [address] [address] Samantha Hough MD [address] [place] [phone] Service Vehicle Operator Message Social History Tobacco Use Types Packs/Day [...] - Samantha Hough MD - 05/26/20232051 EST Service Vehicle Operator Provider Documentation Returned to page to mother [...] - Samantha Hough MD - 05/26/20232022 EST Service Vehicle Operator Provider Documentation 8:20 pm page to stroboroma operator who states mother in law of patient calling due to concern of patient being sick and vomiting Membership Correspondent called back x 2, direct to voicemail with no voicemail set up. Await additional calls. Samantha Hough MD documented in this encounter Plan of Treatment Not on file documented as of this encounter Visit Diagnoses Not on filedocumented in this encounter Care Teams Rim Turning Finisher Relationship Specialty Start Date End Date Carrington Calderon MD 1 [facility] 1 [place] [phone] PCP - General Internal Medicine - Primary Care 12/09/20 Abigail Díaz Canopy Stringer 04/21/23 01/03/24 documented as of this encounter
--- OUTSIDE RECORDS SUMMARY | 2024-06-03 09:02 | XMS_ITS | Encounter Summary ---
Author Organization [facility] Address [address] [place] [address] Care Team Providers Care Product Marketing Specialist Name Role Phone Carrington Calderon MD Primary Care Provi anders Abigail Díaz Unavailable [phone] Reason for Visit * Reason Comments Med Change Request Encounter Details Date Type Department Care Team (Late st Contact Info) Description 06/27/2023 [facility] Adult Primary Care - [address] [address] Carrington Calderon MD [address] [phone] Med Change Request Social History [...] 1331 EST Medication(s) Requested: sumatriptan [facility] Is patient out of medication? No Last Refill Date: 06/27/23 Refills available at pharmacy for requested medication. Request denied. SIERRA JIM RN 06/28/2023 13:31 documented in this encounter Plan of Treatment Not on file documented as of this encounter Visit Diagnoses Not on filedocumented in this encounter Care Teams Product Marketing Specialist Relationship Specialty Start Date End Date Carrington Calderon MD 1 [facility] Level 1 [place] [address] PCP - General Internal Medicine - Primary Care 12/09/20 Abigail Díaz Booth Cleaner 04/21/23 01/03/24 documented as of this encounter
--- OUTSIDE RECORDS SUMMARY | 2024-06-03 09:02 | XMS_ITS | Encounter Summary ---
Author Organization [facility] Address [address] [place] [address] Care Team Providers Care Medical Registrar Name Role Phone Carrington Calderon MD Primary Care Provi anders Abigail Díaz Unavailable Carmelo Hendrickson Unavailable Unavailable Encounter Details Date Type Department Care Team (Late st Contact Info) Description 12/02/2023 Patient Outreach [facility] Adult Primary Care - [place] 1 [place], [place] [phone] Abigail Díaz Social History Tobacco Use Types Packs/Day Years Used Date Smoking Tobacco: Every Day Cigarettes 0.5 13.6 Started: 11/10/2010 Smokeless Tobacco: Never Comments:06/13/20 actively try ing to quit about 5-8 cigs/day Alcohol Use Standard Drinks/Week Comments Yes 0 (1 standard drink = 0.6 oz pur e alcohol) rarely [facility] Utilities Answer Date Recorded In the past 12 months has [employer], gas, oil, or water company threatened [...] Abigail Díaz - 12/02/2023 0905 EDT [facility] Internet Sales Associate Care Coordination Care management phone consult as scheduled, pt did not answer phone. territory business manager called and left voicemail requesting call back to reschedule. Additional outreach planned documented in this encounter Plan of Treatment Not on file documented as of this encounter Visit Diagnoses Not on filedocumented in this encounter Care Teams Medical Registrar Relationship Specialty Start Date End Date Carrington Calderon MD 1 [facility] 1 [place] [phone] PCP - General Internal Medicine - Primary Care 12/09/20 Abigail Díaz Internet Sales Associate 04/21/23 01/03/24 Carmelo Hendrickson Coordinator 12/01/23 documented as of this encounter
--- OUTSIDE RECORDS SUMMARY | 2024-06-03 09:02 | XMS_ITS | Encounter Summary ---
Author Organization [facility] Address [address] [place] [address] Care Team Providers Care Information Security Officer Name Role Phone Carrington Calderon MD Primary Care Provi anders Abigail Díaz Unavailable Carmelo Hendrickson Unavailable Unavailable Abigail Díaz Unavailable Reason for Visit * Reason Comments Med Change Request Encounter Details Date Type Department Care Team (Late st Contact Info) Description 06/29/2023 [facility] Adult Primary Care - [address] [address] Carrington Calderon MD 1 [facility] Level 1 [place] [phone] Med Change Request Social History Tobacco Use [...] NOSTRIL NEEDED FOR MIGRAINE HEADACHE [facility] [address] [place] [address] Confirmed Pharmacy? Yes Patient out of medication? Unknown How many pills does patient have left? unknown Last Refill Date: 06/27/23 Refills left? (explain exceptions requiring early refill) No Recent Visits Date Type Provider Dept 06/27/23 Office Visit Carrington Calderon MD [facility] Adult Prim Care 11/17/22 Office Visit Carrington Calderon MD [facility] Adult Prim Care 09/02/22 Office Visit Nimisha Clifton NP [facility] Adult Prim Care 05/20/22 Office Visit Rachel Stein PA-C [facility] Adult Prim Care Showing recent visits within past 540 days with a meds authorizing provider and meeting all other requirements Future Appointments Date Type Provider Dept 08/15/23 Appointment Carrington Calderon MD [facility] Adult Prim Care Showing future appointments [...] (IMITREX) 20 mg/actuation nasal spray Instill 1 [place] into right nostril as needed for Migraine. 06/27/2023 06/29/2023 documented as of this encounter Care Teams Information Security Officer Relationship Specialty Start Date End Date Carrington Calderon MD 1 [facility] 1 [place] [phone] PCP - General Internal Medicine - Primary Care 12/09/20 Abigail Díaz General Practitioner 04/21/23 01/03/24 Carmelo Hendrickson Coordinator 12/01/23 Abigail Díaz General Practitioner 01/04/24 documented as of this encounter
--- OUTSIDE RECORDS SUMMARY | 2024-06-03 09:02 | XMS_ITS | Encounter Summary ---
Author Organization [facility] Address [address] [place] [address] Care Team Providers Care Space And Missile Operations Spacelift Name Role Phone Carrington Calderon MD Primary Care Provi anders Abigail Díaz Unavailable Reason for Visit * Reason Comments Nicotine Dependence Encounter Details Date Type Department Care Team (Late st Contact Info) Description 05/24/2023 Community Health Team [facility] Adult Primary Care - [place] 1 [place], [place] [phone] Kylah Wilson Social History Tobacco Use Types [...] filedocumented in this encounter Care Teams Space And Missile Operations Spacelift Relationship Specialty Start Date End Date Carrington Calderon MD 1 [facility] 1 [place] [address] PCP - General Internal Medicine - Primary Care 12/09/20 Abigail Díaz Geophysical Computer 04/21/23 01/03/24 documented as of this encounter
--- OUTSIDE RECORDS SUMMARY | 2024-06-03 09:02 | XMS_ITS | Encounter Summary ---
Author Organization [facility] Address [address] [place] [address] Care Team Providers Care Campus Director Name Role Phone Carrington Calderon MD Primary Care Provi anders Abigail Díaz Unavailable [phone] Carmelo Hendrickson Unavailable Unavailable Abigail Díaz Unavailable Reason for Visit * Reason Onset Date Comments Medications Refill 12/20/2023 Encounter Details Date Type Department Care Team (Late st Contact Info) Description 12/20/2023 Refill [facility] Adult Primary Care - [address] [phone] Carrington Calderon MD 1 [facility] Level 1 [place] [phone] Medications Refill Social History Tobacco Use Types Packs/Day Years Used Date Smoking Tobacco: Every Day Cigarettes 0.5 13.6 Started: 11/10/2010 Smokeless Tobacco: Never Comments:06/13/20 actively try ing to quit about 5-8 cigs/day Alcohol Use Standard Drinks/Week Comments Yes 0 (1 standard drink = 0.6 oz pur e alcohol) rarely [facility] Utilities Answer Date Recorded In [...] Telephone Encounter - Berenice Mahan - 12/20/2023 4821 EDT Medication(s) Requested/ Last Ordered: Tramadol/ 06.27.23 Lorazepam/ 06.27.23 Preferred Pharmacy: [facility] [address] [facility], [place] - [address] [place] [address] Is patient out of medication? Yes Last [...] documented as of this encounter Care Teams Campus Director Relationship Specialty Start Date End Date Carrington Calderon MD 1 [facility] 1 [place] [phone] PCP - General Internal Medicine - Primary Care 12/09/20 Abigail Díaz Clinical Analyst 04/21/23 01/03/24 Carmelo Hendrickson Coordinator 12/01/23 Abigail Díaz Clinical Analyst 01/04/24 documented as of this encounter
--- OUTSIDE RECORDS SUMMARY | 2024-06-03 09:02 | XMS_ITS | Encounter Summary ---
Author Organization [facility] Address [address] [place] [address] Care Team Providers Care Health Care Manager Name Role Phone Carrington Calderon MD Primary Care Provi anders BreAbigail Unavailable Reason for Referral * Consult (Routine/Next Available) - Closed Specialty Diagnoses / Procedures Referred By Kit goode Referred To Contact Sleep Medicine Diagnoses Primary insomnia Carrington Calderon MD [address] [place] [phone] Phone: tel: fax: [facility] - [address] [address] Phone: tel: fax: Referral ID Status Reason Start Date Expiration Date V isits Requested Visits Authorized [id number] Closed Specialty Services Required 11/11/2023 1 1 [...] ([facility]) Cyclic vomiting syndrome Carrington Calderon MD [address] [place] [phone] Phone: tel: fax: [facility] [address] [facility], [address] [place] [address] Phone: tel: fax: Referral ID Status Reason Start Date Expiration Date Visits Requested Visits Authorized [id number] Specialty Report Received Specialty Services Required 11/11/2023 1 1 Question Answer Reason for Request: disability paperwork * Referral (Routine/Next Available) - Closed Specialty Diagnoses / Procedures Referred By Kit goode Referred To Contact Neurology Diagnoses Migraine with aura and without status migrainosus, not intractable Cyclic vomiting syndrome Carrington Calderon MD [address] [place] [address] 1 [place] [address] Phone: tel: fax: Kierra Almeida, 1 [facility], Level 2 [place] [address] Phone: tel: fax: Referral ID Status Reason Start Date Expiration Date V isits Requested Visits Authorized [id number] Closed Specialty Services Required 11/11/2023 1 1 Question Answer Reason for Request: cyclic vomiting and migraine Context of referral: Established Problem Reason for referral: Unsure Is headache attributable to an underlying condition? No Is patient actively missing work or school due to headache? Yes Is patient or lactating? No Has patient had a previous OUTSIDE of [facility] neurology evaluation, neuroimaging (MRI or CT of brain or spine) or electrodiagnostic testing (EMG, NCS, EEG)? No Reason for Visit * Reason Comments Follow-up Foot Pain Encounter Details Date Type Department Care Team (Late st Contact Info) Description 11/11/2023 13:00 EDT Office Visit [facility] [place] [address] Carrington Calderon MD 1 [facility] Level 1 [place] [address] Type 2 diabetes mellitus with diabetic polyneuropathy, with long-term current use of insulin (HCC-CMS) ([facility]) (Primary Dx); Migraine with aura and without [...] in a usp (including now)? No 06/14/2023 Interpersonal Safety Answer [...] ([facility]) 8 units with breakfast, 15 units with [...] long-term current use of insulin ([facility]) ([facility]) Reviewed CGM data in detail. GMI reflects [...] CHOLESTEROL, TRIGLYCERIDES, HDL, LDL); Future - URINE [id number] RATIO (ACR); Future 2. Migraine with aura [...] 2 diabetes mellitus, limited to breakdown ofskin ([facility]) Continue care with her honey blender. We did not examine the foot today, [...] that she has continued to see her honey blender in [place] every couple of weeks. She has a persistent foot ulcer on the bottom of her left foot at around the level of the first metatarsal head. She expresses frustration around the fact that this has not healed. She has beentold by her honey blender that it would be hard or impossible [...] UP OUTPATIENT CARE MANAGEMENT - [facility] Outpatient Referral Routine/Next Available Type 2 diabetes mellitus with diabetic polyneuropathy, with long-term current use of insulin ([facility]) (HCC) Cyclic vomiting syndrome Expected: 11/18/2023 (Approximate), Expires: 11/10/2024 BEHAVIORAL SLEEP MEDICINE CONSULTATION Outpatient Referral Routine/Next Available Primary insomnia Expected: 12/11/2023 (Approximate), Expires: 11/10/2024 documented as of this encounter Results * HIV 1/2 ANTIGEN AND ANTIBODY, 4TH GENERATION (11/11/2023 13:53 EDT) HIV 1 and 2 Antibody/p24 Antigen, 4th Generation Negative Negative 11/11/2023 17:04 EDT [facility] Comment:If acute HIV-1 infec tion is suspected in a high risk patient, submit plasma specimen for HIV-1 RNA quantitation test. Blood VENOUS BLOOD / Unknown Venipuncture / Unknown 11/11/2023 13:53 EDT 11/11/2023 13:55 EDT Narrative [facility] - 11/11/2023 17:04 EDT Fourth Generation assay performed on the SiBE[employer] XPT. us Carrington Calderon MD IMMUNOLOGY AND SERO LOGY ORDERABLES Final Result [facility] [address] [place] [address] * HEPATITIS C AB W REFLEX TO HCV RNA BY PCR (11/11/2023 13:53 EDT) Pathologist [facility] Hep C Antibody Negative Negative 11/11/2023 17:03 EDT [facility] Blood VENOUS BLOOD / Unknown Venipuncture / Unknown 11/11/2023 13:53 EDT 11/11/2023 13:55 EDT Carrington Calderon MD CHEMISTRY & BLOOD G ORDERABLES Final Result [facility] [address] [place] [address] * HEPATITIS B PROFILE (11/11/2023 13:53 EDT) Hep B Surface Ag Negative Negative 11/11/19 17:04 EDT [facility] Hep B Surface Ab, Quantitative <3.1 See Note mIU/mL 11/11/2023 17:04 EDT [facility] Comment: Reference Range for Hep B Surface Ab, Quant: Positive: >= 10.0 mIU/mL Negative: ??< 10.0 mIU/mL Patient is presumed to not be immune to infection with Hepatitis B Virus. Hep B Surface Ab, Qualitative Negative See Note 11/11/2023 17:04 EDT [facility] Comment: Reference Range for Hep B Surface Ab, Qual: Unvaccinated: ??Negative Vaccinated: ??Positive Hepatitis B Core Ab, Total Negative Negative 11/11/2023 17:04 EDT [facility] Blood VENOUS BLOOD / Unknown Venipuncture / Unknown 11/11/2023 13:53 EDT 11/11/2023 13:55 EDT Carrington Calderon MD CHEMISTRY & BLOOD G ORDERABLES Final Result Performing Organization Address [facility] Co de Phone Number [facility] [address] [place] [address] * (ABNORMAL) THYROID CASCADE (11/11/2023 13:53 EDT) TSH 0.37(L) 0.47 - 4.68 mIU/L 11/11/2023 15:38 EDT [facility] Blood VENOUS BLOOD / Unknown Venipuncture / Unknown 11/11/2023 13:53 EDT 11/11/2023 13:55 EDT Narrative [facility] - 11/11/2023 15:38 EDT NOTE: The results of this assay can be falsely lowered due to the consumption of Biotin. Carrington Calderon MD CHEMISTRY & BLOOD G ORDERABLES Final Result Performing Organization Address [facility]/ZIP Co de Phone Number [facility] [address] [place] [address] documented in this encounter Visit Diagnoses Diagnosis [...] long-term current use of insulin ([facility]) 8 units with breakfast, 12 units with lunch/dinner 06/27/2023 11/11/2023 documented as of this encounter Care Teams Health Care Manager Relationship Specialty Start Date End Date Carrington Calderon MD 1 [facility] Level 1 [place] [phone] PCP - General Internal Medicine - Primary Care 12/09/20 Abigail Díaz Vibration Engineer 04/21/23 01/03/24 documented as of this encounter
--- OUTSIDE RECORDS SUMMARY | 2024-06-03 09:02 | XMS_ITS | Encounter Summary ---
Author Organization [facility] Address [address] [place] [address] Care Team Providers Care Appellate Law Clerk Name Role Phone Carrington Calderon MD Primary Care Provi anders Abigail Díaz Unavailable Reason for Visit * Reason Comments Consult * Consult (Routine/Next Available) - Specialty Report Received Specialty Diagnoses / Procedures Referred By Kit goode Referred To Contact Obstetrics & Gynecology Diagnoses IUD contraception Carrington Calderon MD Phone: tel: fax: [facility] [address] [address] Phone: tel: fax: Referral ID Status Reason Start Date Expiration Date Visits Requested Visits Authorized [id number] Specialty Report Received Specialty Services Required 3 1 1 Encounter Details Date Type Department Care Team (Late st Contact Info) Description 08/05/2023 13:00 EST Initial consult [facility] [address] [id number] Kamini Vega MD [address] [facility], Level [address] [place] [phone] Encounter for IUD insertion (Primary Dx); Gastroparesis [...] pt has a referral for therapy. Diabetes ([facility]) A1c 10.3 on 11/28/2019 - poorly controlled Diabetes mellitus, type 2 ([facility]) pt check blood sugars at [...] vomiting occasionally Neuropathic diabetic ulcer of foot ([facility]) 09/17/2021 Obesity, unspecified Osteomyelitis ([facility]) of left great toe-s/p amputation [...] withdrawn slightly and arms deployed as per office electrician specifications. Applicator removed Strings trimmed to 3 [...] at 1345, Until Tue08/03/30 at 1344, Per [facility], use is restricted to outpatient clinics and the OR. LARC approved for inpatient use includes Mirena, Nexplanon, and Paragard only for patients covered by [facility] Routine IUD Insertion 08/05/2023 13:18 EST 1 Each documented in this encounter Orders Medications Ordered That Stan ht Not Have Been Administered Count Last Ordered Date First Ordered Date levonorgestreL (MIRENA) 21 m cg/24 hours (8 yrs) 52 mg IUD 1 Each 1 08/05/2023 documented in this encounter Care Teams Appellate Law Clerk Relationship Specialty Start Date End Date Carrington Calderon MD 1 [facility] 1 [place] [phone] PCP - General Internal Medicine - Primary Care 12/09/20 Abigail Díaz Solar Tech 04/21/23 01/03/24 documented as of this encounter
--- OUTSIDE RECORDS SUMMARY | 2024-06-03 09:02 | XMS_ITS | Encounter Summary ---
Author Organization [facility] Address [address] [place] [address] Care Team Providers Care Chainstitch Elastic Attacher Name Role Phone Carrington Calderon MD Primary Care Provi anders Abigail Díaz Unavailable [phone] Carmelo Hendrickson Unavailable Unavailable Reason for Referral * Consult (Routine/Next Available) - Specialty Report Received Specialty Diagnoses / Procedures [facility]erred By [facility] Referred To Contact Obstetrics & Gynecology Diagnoses IUD contraception Carrington Calderon MD Phone: tel: fax: [facility] OBGYN Services - [address] [address] Phone: tel: fax: Referral ID Status Reason Start Date Expiration Date Visits Requested Visits Authorized [id number] Specialty Report Received Specialty Services Required 3 1 1 Question Answer Reason for Request: IUD placement Reason for Visit * Reason Onset Date Comments Referral Request 06/01/2023 Encounter Details Date Type Department Care Team (Late st Contact Info) Description 06/01/2023 Telephone [facility] Adult Primary Care - [address] [address] Carrington Calderon MD 1 [facility] 1 [place] [address] Referral Request Social History Tobacco Use Types Packs/Day Years Used Date Smoking Tobacco: Former Cigarettes 0.5 13.6 S tarted: 11/10/2010 Smokeless Tobacco: Never Comments:06/13/20 actively try ing to quit about 5-8 cigs/day Alcohol Use Standard Drinks/Week Comments Yes 0 (1 standard drink = 0.6 oz pur e alcohol) rarely [facility] Utilities Answer Date Recorded In the past 12 months has th e [employer], gas, oil, or water [employer] threatened to shut off services in your [...] is calling to get a referral to [employer] for a Kriss placement. documented in this encounter Plan of Treatment Scheduled Referrals Name Type Priority Associated Diagnoses Orde r Schedule AMB CONS/FOLLOW UP GYNECOLOGY Outpatient Referral Routine/Next Available IUD contraception Expected: 06/08/2023 (Approximate), Expires: 06/01/2024 documented as of this encounter Visit Diagnoses Diagnosis IUD contraception- Primary Presence of intrauterine contraceptive device documented in this encounter Care Teams Chainstitch Elastic Attacher Relationship Specialty Start Date End Date Carrington Calderon MD 1 [facility] 1 [place] [address] PCP - General Internal Medicine - Primary Care 12/09/20 Abigail Díaz Circulation Manager 04/21/23 01/03/24 Carmelo Hendrickson Coordinator 12/01/23 documented as of this encounter
--- OUTSIDE RECORDS SUMMARY | 2024-06-03 09:02 | XMS_ITS | Encounter Summary ---
Author Organization [facility] Address [address] [place] [address] Care Team Providers Care Tab Card Press Operator Name Role Phone Carrington Calderon MD Primary Care Provi anders Abigail Díaz Unavailable [phone] Carmelo Hendrickson Unavailable Unavailable Encounter Details Date Type Department Care Team (Late st Contact Info) Description 12/09/2023 Orders Only [facility] Radiology - Main [place] [address] [place], [place] [phone] Teresita Fitzpatrick MD [address] [place] [address] Social History Tobacco Use Types Packs/Day Years Used Date Smoking Tobacco: Every Day Cigarettes 0.5 13.6 Started: 11/10/2010 Smokeless Tobacco: Never Comments:06/13/20 actively try ing to quit about 5-8 cigs/day Alcohol Use Standard Drinks/Week Comments Yes 0 (1 standard drink = 0.6 oz pur e alcohol) rarely C Utilities Answer Date Recorded In the past 12 months has [employer], gas, oil, or water company threatened to [...] on filedocumented in this encounter Care Teams Tab Card Press Operator Relationship Specialty Start Date End Date Carrignton Calderon MD 1 [facility] Level 1 [place] [address] PCP - General Internal Medicine - Primary Care 12/09/20 Abigail Díaz Driver'S Education Instructor 04/21/23 01/03/24 Carmelo Hendrickson Coordinator 12/01/23 documented as of this encounter
--- OUTSIDE RECORDS SUMMARY | 2024-06-03 09:02 | XMS_ITS | Encounter Summary ---
Author Organization [facility] Address [address] [place] [address] Care Team Providers Care Diathermy Equipment Repairer Name Role Phone Carrington Calderon MD Primary Care Provi anders Amrita Asencio Unavailable [phone] Carmelo Hendrickson Unavailable Unavailable Amrita Asencio Unavailable Reason for Referral * Referral (Routine/Next Available) - Authorization Not Required Specialty Diagnoses / Procedures Referred By Contac t Referred To Contact Multidisciplinary Diagnoses Encounter for screening involving social determinants of health (SDoH) Carrington Calderon MD [address] [place] [address] 1 [place] [address] Phone: tel: fax: [facility] [address], [facility] [address] [place] [address] Phone: tel: fax: Referral ID Status Reason Start Date Expiration Date Visits Requested Visits Authorized [id number] Authorization Not Required Specialty Services Required 4 1 1 Question Answer Reason for Request: apply for 3 squares and other relevant economic programs Encounter Details Date Type Department Care Team (Latest Contact Info) Description 11/15/2023 Patient Outreach [facility] Adult Primary Care [address] [address] Amrita Asencio Encounter for screening involving social determinants of health (SDoH) (Primary Dx) Social History Tobacco Use Types Packs/Day Years Used Date Smoking Tobacco: Former Cigarettes 0.5 13.6 S tarted: 11/10/2010 Smokeless Tobacco: Never Comments:06/13/20 actively try ing to quit about 5-8 cigs/day Alcohol Use Standard Drinks/Week Comments Yes 0 (1 standard drink = 0.6 oz pur e alcohol) rarely [facility] oomaities Answer Date Recorded In the past 12 months has th e [employer], gas, oil, or water company threatened to [...] No 10/02/2020 23:50 Rvier Cavanaugh RN * Do you have difficulty [...] * Amrita Asencio - 11/15/2023 1501 EDT [facility] Assessment and Care Plan Referral Reason: Patient was referred to [facility] to assist with completing application for disability,difficulty with maintaining work Pertinent medical and behavioral health issues: ENT Chronic left ear pain Infectious Disease Skin infection Endocrine/Metabolic Pannus, abdominal Type 2 diabetes mellitus with diabetic polyneuropathy, with long-term current use of insulin ([facility]) ([facility]) Gastrointestinal/Abdominal Gastroparesis Psychiatric Anxiety and depression Musculoskeletal Chronic midline low back pain without sciatica Neuropathic diabetic ulcer of foot ([facility]) Family history of rheumatoid arthritis Neurological [...] Medicine - Primary Care) Amrita Asencio as Dental Surgery Doctor Medications: Current Outpatient Medications: acetaminophen (TYLENOL) 325 [...] (Non-Medical): No Utilities: Not At Risk (11/15/2023) [facility] Utilities Threatened with loss of utilities: No [...] - BCB* ASUNCION LUO 05/08/1986 Male Spouse [id number] 02/14/[birth year] [id number] [address], [place] [address] Any gaps or barriers with healthcare insurance coverage: Yes, Diabetic medications [facility] recommendedpatient using GoodRX or Manufactures coupons [...] review SSDI checklist before next visit with [facility] 3. Patient will review Sleep Hygiene resources sent by [facility] before next visit Barriers identified to meeting goals: No barriers identified Assessment/Clinical Summary and Plan: Disability- [facility] reviewed policy and practice for Disability. Patient reports that she is confidentwith help of her family to complete the application checklist [facility] completed intake and assessment Patient reports that she would like t access 3 squares- [place] submitted to assist pt in accessing foodprogram Patient reviewed her current health needs and [facility] provided supportive counseling to pt Patient's access to their plan of care: Patient/family will access electronically through [employer] CM will follow-up in one month AMRITA ASENCIO 11/15/2023 15:19 documented in this encounter Plan of Treatment Scheduled Referrals Name Type Priority Associated Diagnoses Order Schedule AMB CONS/FOLLOW UP OUTPATIENT CARE MANAGEMENT - [facility] Outpatient Referral Routine Consult Encounter for screening involving social determinants of health (SDoH) Expected: 11/22/2023 (Approximate), Expires: 11/14/2024 documented as of this encounter Visit Diagnoses Diagnosis Encounter for screening involving social determinants of health (SDoH)- Primary documented in this encounter Care Teams Diathermy Equipment Repairer Relationship Specialty Start Date End Date Carrington Calderon MD 1 [facility] 1 [place] [address] PCP - General Internal Medicine - Primary Care 12/09/20 Amrita Asencio Dental Surgery Doctor 04/21/23 01/03/24 Carmelo Hendrickson Coordinator 12/01/23 Amrita Asencio Dental Surgery Doctor 01/04/24 documented as of this encounter
--- OUTSIDE RECORDS SUMMARY | 2024-06-03 09:02 | XMS_ITS | Encounter Summary ---
Author Organization [facility] Address [address] [place] [address] Care Team Providers Care Set Staff Fitter Name Role Phone Carrington Calderon MD Primary Care Provi anders Abigail Díaz Unavailable [phone] Carmelo Hendrickson Unavailable Unavailable Encounter Details Date Type Department Care Team (Late st Contact Info) Description 12/01/2023 Patient Outreach [facility] Adult Primary Care - [place] 1 [place], [place] [id number] Carmelo Hendrickson Social History Tobacco Use Types Packs/Day Years Used Date Smoking Tobacco: Every Day Cigarettes 0.5 13.6 Started: 11/10/2010 Smokeless Tobacco: Never Comments:06/13/20 actively try ing to quit about 5-8 cigs/day Alcohol Use Standard Drinks/Week Comments Yes 0 (1 standard drink = 0.6 oz pur e alcohol) rarely C Utilities Answer Date Recorded In the past 12 months has [employer], gas, oil, or water [employer] threatened to shut off services in your [...] time in the past 12 m [facility], were you homeless or [...] Carmelo Hendrickson - 12/01/2023 1214 EDT [facility] Tool Filer Initial Note Referred by: Abigail Díaz [facility] PCP: Carrington Calderon Encounter type: Telephone Reason for Referral: Help with [facility] and other economic programs Notes: This human resources compensation analyst called Stella who was driving, made plan to call back tomorrow. Plan / Action Items: DYAN will follow up on 12/02/23 after 11am. Carmelo Hendrickson 12/01/23 12:15 documented in this encounter Plan of Treatment Not on file documented as of this encounter Visit Diagnoses Not on filedocumented in this encounter Care Teams Set Staff Fitter Relationship Specialty Start Date End Date Carrington Calderon MD 1 [facility] 1 [place] [phone] PCP - General Internal Medicine - Primary Care 12/09/20 Abigail Díaz Wrapper And Preserver 04/21/23 01/03/24 Carmelo Hendrickson Coordinator 12/01/23 documented as of this encounter
--- OUTSIDE RECORDS SUMMARY | 2024-06-03 09:02 | XMS_ITS | Encounter Summary ---
Author Organization [facility] Address [address] [place] [address] Care Team Providers Care Lode Miner Name Role Phone Carrington Calderon MD Primary Care Provi anders NelsyClayAbigail Unavailable Encounter Details Date Type Department Care Team (Late st Contact Info) Description 11/11/2023 13:30 EDT Phlebotomy Only [facility] Laboratory Services - [address] [address] Pumping Plant Operator, [facility] Lab Abnormal thyroid blood test; Encounter for screening for other viral diseases Social History Tobacco Use Types Packs/Day Years Used Date Smoking Tobacco: Former Cigarettes 0.5 13.6 S tarted: 11/10/2010 Smokeless Tobacco: Never Comments:06/13/20 actively try ing to quit about 5-8 cigs/day Alcohol Use Standard Drinks/Week Comments Yes 0 (1 standard drink = 0.6 oz pur e alcohol) rarely [facility] Utilities Answer Date Recorded In the past 12 months has [employer], gas, oil, or water [employer] threatened to shut off services in your [...] 97 - 169 ng/dL 11/11/2023 17:27 EDT [facility] Blood VENOUS BLOOD / Unknown Venipuncture / Unknown 11/11/2023 13:53 EDT 11/11/2023 13:55 EDT us Carrington Calderon MD CHEMISTRY & BLOOD G ORDERABLES Final Result [facility] [address] [place] [address] * T4 FREE (11/11/2023 13:53 EDT) [facility] T4, Free 1.1 0.8 - 2.2 ng/dL 11/11/2023 16:08 EDT [facility] Blood VENOUS BLOOD / Unknown Venipuncture / Unknown 11/11/2023 13:53 EDT 11/11/2023 13:55 EDT Carrington Calderon MD CHEMISTRY & BLOOD G ORDERABLES Final Result Performing Organization Address [facility] Co de Phone Number [facility] [address] [place] [phone] * HIV 1/2 ANTIGEN AND ANTIBODY, 4TH GENERATION (11/11/2023 13:53 EDT) [facility] HIV 1 and 2 Antibody/p24 [...] LOGY ORDERABLES Final Result Performing Organization Address City/[facility]/ZIP Co de Phone Number [facility] [address] [place] [phone] * HEPATITIS C AB W REFLEX TO HCV RNA BY PCR (11/11/2023 13:53 EDT) [facility] Hep C Antibody Negative Negative 11/11/2023 17:03 EDT [facility] Blood VENOUS BLOOD / Unknown Venipuncture / Unknown 11/11/2023 13:53 EDT 11/11/2023 13:55 EDT Carrington Calderon MD CHEMISTRY & BLOOD G ORDERABLES Final Result Performing Organization Address [facility] Co de Phone Number [facility] [address] [place] [address] * HEPATITIS B PROFILE (11/11/2023 13:53 EDT) Hep B Surface Ag Negative Negative 11/11/19 17:04 EDT [facility] Hep B Surface Ab, Quantitative <3.1 See Note mIU/mL 11/11/2023 17:04 EDT [facility] Comment: Reference Range for Hep B Surface Ab, Quant: Positive: >= 10.0 mIU/mL Negative: ??< 10.0 mIU/mL Patient is presumed to not be immune to infection with Hepatitis B Virus. Hep B Surface Ab, Qualitative Negative See Note 11/11/2023 17:04 EDT [facility] Comment: Reference Range for Hep B Surface Ab, Qual: Unvaccinated: ??Negative Vaccinated: ??Positive Hepatitis B Core Ab, Total Negative Negative 11/11/2023 17:04 EDT [facility] Blood VENOUS BLOOD / Unknown Venipuncture / Unknown 11/11/2023 13:53 EDT 11/11/2023 13:55 EDT Carrington Calderon MD CHEMISTRY & BLOOD G ORDERABLES Final Result Performing Organization Address City/[facility]/ZIP Co de Phone Number [facility] [address] [place] [address] * (ABNORMAL) THYROID CASCADE (11/11/2023 13:53 EDT) TSH 0.37(L) 0.47 - 4.68 mIU/L 11/11/2023 15:38 EDT [facility] Blood VENOUS BLOOD / Unknown Venipuncture / Unknown 11/11/2023 13:53 EDT 11/11/2023 13:55 EDT Narrative [facility] - 11/11/2023 15:38 EDT NOTE: The results of this assay can be falsely lowered due to the consumption of Biotin. Carrington Calderon MD CHEMISTRY & BLOOD G ORDERABLES Final Result [facility] [address] [place], [place] [phone] documented in this encounter Visit Diagnoses Diagnosis Abnormal thyroid blood test Nonspecific abnormal results of thyroid function study Encounter for screening for other viral diseases documented in this encounter Care Teams Lode Miner Relationship Specialty Start Date End Date Carrington Calderon MD 1 [facility] 1 [place] [phone] PCP - General Internal Medicine - Primary Care 12/09/20 Abigail Díaz Overedger 04/21/23 01/03/24 documented as of this encounter
--- OUTSIDE RECORDS SUMMARY | 2024-06-03 09:02 | XMS_ITS | Encounter Summary ---
Author Organization [facility] Address [address] [place] [address] Care Team Providers Care Studio Associate Name Role Phone Carrington Calderon MD Primary Care Provi anders Abigail Díaz Unavailable Carmelo Hendrickson Unavailable Unavailable Abigail Díaz Unavailable Reason for Visit * Reason Onset Date Comments Medications Refill 07/06/2023 Encounter Details Date Type Department Care Team (Late st Contact Info) Description 07/06/2023 Refill [facility] Adult Primary Care - [address] [address] Carrington Calderon MD 1 [facility] Level 1 [place] [phone] Medications Refill Social History Tobacco Use Types Packs/Day Years Used Date Smoking Tobacco: Former Cigarettes 0.5 13.6 S tarted: 11/10/2010 Smokeless Tobacco: Never Comments:06/13/20 actively try ing to quit about 5-8 cigs/day Alcohol Use Standard Drinks/Week Comments Yes 0 (1 standard drink = 0.6 oz pur e alcohol) rarely [facility] Utilities Answer Date Recorded [...] No 06/14/2023 Housing Stability Vital Sign Answer Onrm e Recorded In the last 12 months, [...] situation today? I have a [facility] place to live 04/03/2024 Think about [...] polyneuropathy, with long-term current use of insulin ([facility]) Inject 1 Each into the skin every 3 months. 1 Each 4 07/07/2023 documented in this encounter Miscellaneous Notes * Telephone Encounter - Berenice Mahan - 07/06/2023 0953 EST Medication(s) Requested/ Last Ordered: Dexcom Transmitter 03/16/23 [address] Pharmacy: [facility] [address] [place] [address] Is patient out of medication? Yes Last Visit Date with Ordering Provider: 06/27/2023 Next Non-Acute Visit Date Scheduled with Care Team: 08/15/2023 Berenice Mahan 07/06/2023 9:54 documented in this encounter Plan of Treatment Not on file documented as of this encounter Visit Diagnoses Diagnosis Type 2 diabetes mellitus with diabetic polyneuropathy, with long-term current use of insulin (HCC-CMS) ([facility])- Primary documented in this encounter Discontinued Medications Medication Sig Discontinue Reason Start Date End Da te Blood-Glucose Transmitter (DEXCOM G6 TRANSMITTER) deviceIndications:Type 2 diabetes mellitus with diabetic polyneuropathy, with long-term current use of insulin ([facility]) Inject 1 Each into the skin every 3 months. Reorder 03/16/2023 07/06/2023 documented as of this encounter Care Teams Studio Associate Relationship Specialty Start Date End Date Carrington Calderon MD 1 [facility] 1 [place] [address] PCP - General Internal Medicine - Primary Care 12/09/20 Abigail Díaz Guest Services Lead 04/21/23 01/03/24 Carmelo Hendrickson Coordinator 12/01/23 Abigail Díaz Guest Services Lead 01/04/24 documented as of this encounter
--- OUTSIDE RECORDS SUMMARY | 2024-06-03 09:02 | XMS_ITS | Encounter Summary ---
Author Organization [facility] Address [address] [place] [address] Care Team Providers Care Vat House Laborer Name Role Phone Carrington Calderon MD Primary Care Provi anders Abigail Díaz Unavailable [phone] Reason for Visit * Reason Comments Follow-up EST/ Gastroparesis/ Notes in scans * Consult (Routine) - Receiving Office to Obtain Authorization Specialty Diagnoses / Procedures Referred By Kit goode Referred To Contact Diagnoses Gastroparesis Dale Collier MD [address] [place] [address] [place] [address] Phone: tel: fax: [facility] Gastroenter[facility] [address] [address] Phone: tel: fax: Referral ID Status Reason Start Date Expiration Date Visits Requested Visits Authorized [id number] Receiving Office to Obtain Authorization Specialty Services Required 1 1 Encounter Details Date Type Department Care Team (Late st Contact Info) Description 05/13/2023 11:00 EST Office Visit [facility] Gastroenterology [address] [id number] Scott Arzate MD [address] [place] [address], Level 5 [place] [phone] Cyclic vomiting syndrome (Primary Dx) Social History [...] Entry Date Author No 10/02/2020 23:50 EDT Jones, Krist in, RN documented in this encounter Ordered Prescriptions Prescription Sig Dispense Quantity Refills Last Filled Start Date End Date SUMAtriptan (IMITREX) 20 mg/actuation nasal spray Instill 1 [place] into right nostril as needed for Migraine. [...] vomiting documented in this encounter Care Teams Vat House Laborer Relationship Specialty Start Date End Date Carrington Calderon MD 1 [employer] Level 1 [place] [phone] PCP - General Internal Medicine - Primary Care 12/09/20 Abigail Díaz Geriatric Physical Therapist 04/21/23 01/03/24 documented as of this encounter
--- OUTSIDE RECORDS SUMMARY | 2024-06-03 09:02 | XMS_ITS | Encounter Summary ---
Author Organization [facility] Address [address] [place] [address] Care Team Providers Care Director Investor Relations Name Role Phone Carrington Calderon MD Primary Care Provi anders Abigail Díaz Unavailable [phone] Encounter Details Date Type Department Care Team (Late st Contact Info) Description 05/26/2023 Patient Outreach [facility] Adult Primary Care - [place] [address] [place], [place] [address] Abigail Díaz Social History Tobacco Use Types [...] Abigail Díaz - 05/26/2023 1400 EST [facility] Radiographer Cardiac Catheterization Care Coordination Care management phone consult/visit as scheduled, Stella was not available when called by [facility]. terminal manager left voicemail requesting call back to reschedule if needed [facility] sent MyCHart Letter, no further outreach will be conducted documented in this encounter Plan of Treatment Not on file documented as of this encounter Visit Diagnoses Not on filedocumented in this encounter Care Teams Director Investor Relations Relationship Specialty Start Date End Date Carrington Calderon MD 1 [facility] Level 1 [place] [phone] PCP - General Internal Medicine - Primary Care 12/09/20 Abigail Díaz Radiographer Cardiac Catheterization 04/21/23 01/03/24 documented as of this encounter
--- OUTSIDE RECORDS SUMMARY | 2024-06-03 09:03 | XMS_ITS | Encounter Summary ---
Author Organization [facility] Address [address] [place] [address] Care Team Providers Care Rn Plasma Center Name Role Phone Carrington Calderon MD Primary Care Provi anders Abigail Díaz Unavailable [phone] Carmelo Hendrickson Unavailable Unavailable Abigail Díaz Unavailable Encounter Details Date Type Department Care Team (Late st Contact Info) Description 03/18/2023 Orders Only [facility] Adult Primary Care - [address] [phone] Ratna Latham Abnormal TSH Social History Tobacco [...] <1.0 <=1.3 TSI index 03/25/2023 15:55 EDT [facility] Comment: Test Performed by: [facility] - [address] [address] Chartered Financial Analyst: Wiley Fry M.D. Ph.D.; CLIA# [id number] Blood VENOUS BLOOD / Unknown Venipuncture / Unknown 03/14/2023 15:19 EDT 03/18/2023 16:07 EDT us Carrington Calderon MD CHEMISTRY & BLOOD G ORDERABLES Final Result Performing Organization Address City/State/[facility] Co de Phone Number [facility] [address] [place] [address] documented in this encounter Visit Diagnoses Diagnosis Abnormal TSH Other abnormal clinical finding documented in this encounter Care Teams Rn Plasma Center Relationship Specialty Start Date End Date Carrington Calderon MD 1 [facility] 1 [place] [phone] PCP - General Internal Medicine - Primary Care 12/09/20 Abigail Díaz Psychology Intern 04/21/23 01/03/24 Carmelo Hendrickson Coordinator 12/01/23 Abigail Díaz Psychology Intern 01/04/24 documented as of this encounter
--- OUTSIDE RECORDS SUMMARY | 2024-06-03 09:03 | XMS_ITS | Encounter Summary ---
Author Organization [facility] Address [address] [place] [address] Care Team Providers Care Supervisor Sewer Maintenance Name Role Phone Carrington Calderon MD Primary Care Provi anders Encounter Details Date Type Department Care Team (Late st Contact Info) Description 03/14/2023 15:15 EDT Phlebotomy Only [facility] Laboratory Services - [address] [address] [facility] Type 2 diabetes mellitus with diabetic polyneuropathy, with long-term current use of insulin ([facility]); Night sweats; Lymphocytosis Social History [...] current use of insulin ([facility]) SLIDE REQUEST Routine 03/14/2023 15:19 EDT Night sweats Lymphocytosis COMPLETE BLOOD COUNT AND DIFFERENTIAL Routine 03/14/2023 15:19 EDT Type 2 diabetes mellitus with diabetic polyneuropathy, with long-term current use of insulin ([facility]) HEMOGLOBIN A1C Routine 03/14/2023 15:19 EDT Type 2 diabetes mellitus with diabetic polyneuropathy, with long-term current use of insulin ([facility]) BASIC METABOLIC PANEL (BMP) Routine 03/14/2023 15:19 EDT Type 2 diabetes mellitus with diabetic polyneuropathy, with long-term current use of insulin ([facility]) documented in this encounter Results * [...] and giant forms noted. 03/16/2023 12:25 EDT [facility] Blood VENOUS BLOOD / Unknown Venipuncture / Unknown 03/14/2023 15:19 EDT 03/16/2023 11:05 EDT Narrative [facility] - 03/16/2023 12:25 EDT [...] HEMATOLOGY & PF4 OR DERABLES Final Result [facility] [address] [place] [address] * (ABNORMAL) DIFFERENTIAL, AUTOMATED MANUAL (03/14/2023 15:19 EDT) % Neutrophils 48.7 % 03/14/2023 17:23 EDT [facility] % Lymphocytes 44.3 % 03/14/2023 17:23 EDT [facility] % Monocytes 4.4 % 03/14/2023 17:23 EDT [facility] % Eosinophils 1.7 % 03/14/2023 17:23 EDT [facility] % Basophils 0.9 % 03/14/2023 17:23 [facility] Absolute Neutrophils 8.80 2.20 - 8.85 K/cmm 03/14/2023 17:23 [facility] Absolute Lymphocytes 8.01(H) 1.09 - 3.30 K/cmm 03/14/2023 17:23 [facility] Absolute Monocytes 0.80 0.10 - 0.80 K/cmm 03/14/2023 17:23 [facility] Absolute Eosinophils 0.31 0.03 - 0.61 K/cmm 03/14/2023 17:23 [facility] ABS Basophils 0.16(H) 0.01 - 0.11 K/cmm 03/14/2023 17:23 [facility] Smudge Cells 03/14/2023 17:23 [facility] Comment:present Type of Differential: Manual 03/14/2023 17:23 [facility] Blood VENOUS BLOOD / Unknown Venipuncture / Unknown 03/14/2023 15:19 EDT 03/14/2023 15:19 EDT us Carrington Calderon MD HEMATOLOGY & PF4 OR DERABLES Final Result [facility] [address] [place] [address] * (ABNORMAL) COMPLETE BLOOD COUNT AND DIFFERENTIAL (03/14/2023 15:19 EDT) WBC 18.08(H) 4.00 - 12.40 K/cmm 03/14/2023 16:23 [facility] RBC 4.40 3.86 - 5.04 M/cmm 03/14/2023 16:23 [facility] Hemoglobin 14.0 11.6 - 15.2 g/dL 03/14/2023 16:23 [facility] HCT 40.6 34.9 - 44.4 % 03/14/2023 16:23 [facility] MCV 92 81 - 98 fL 03/14/2023 16:23 [facility] MCH 31.8 26.7 - 33.3 pg 03/14/2023 16:23 [facility] MCHC 34.5 32.1 - 35.9 g/dL 03/14/2023 16:23 [facility] RDW-CV 12.6 <14.7 % 03/14/2023 16:23 [facility] RDW-SD 42.6 <50.4 fl 03/14/2023 16:23 [facility] PLT 412(H) 141 - 377 K/cmm 03/14/2023 16:23 [facility] MPV 9.3(L) 9.5 - 12.7 fL 03/14/2023 16:23 [facility] Blood VENOUS BLOOD / Unknown Venipuncture / Unknown 03/14/2023 15:19 EDT 03/14/2023 15:19 EDT Carrington Calderon MD PACKAGES & DNA PROB E ORDERABLES Final Result [facility] [address] [place] [address] * (ABNORMAL) HEMOGLOBIN A1C (03/14/2023 15:19 EDT) Hemoglobin A1c 8.3(H) <5.7 % 03/14/2023 22:02 [facility] Comment: Glycemic Status References: Normal: ??<5.7% Pre-Diabetes: ??5.7% - 6.4% Diagnostic of Diabetes: ??> or = 6.5% (if confirmed) Est Avg Glucose 192 mg/dL 22:02 [facility] Comment:The eAG represents t he A1c result expressed as average glucose in mg/dL. Blood VENOUS BLOOD / Unknown Venipuncture / Unknown 03/14/2023 15:19 EDT 03/14/2023 15:19 EDT us Carrington Calderon MD CHEMISTRY & BLOOD G ORDERABLES Final Result [facility] [address] [place] [address] * (ABNORMAL) BASIC METABOLIC PANEL (BMP) (03/14/2023 15:19 EDT) Sodium 142 136 - 145 mmol/L 03/14/2023 16:50 [facility] Potassium 4.2 3.5 - 5.0 mmol/L 03/14/2023 16:50 [facility] Chloride 103 96 - 110 mmol/L 03/14/2023 16:50 [facility] CO2 Total 25 22 - 32 mmol/L 03/14/2023 16:50 [facility] Anion Gap 14 5 - 14 mmol/L 03/14/2023 16:50 [facility] Glucose 45(LL) 70 - 99 mg/dl 03/14/2023 16:50 [facility] Calcium 9.9 8.5 - 10.5 mg/dL 03/14/2023 16:50 [facility] BUN 11 10 - 26 mg/dL 03/14/2023 16:50 [facility] Creatinine 0.99 0.52 - 1.04 mg/dL 03/14/2023 16:50 [facility] eGFR 75 >60 mL/min/1.73 m2 03/14/2023 16:50 [facility] Blood VENOUS BLOOD / Unknown Venipuncture / Unknown 03/14/2023 15:19 EDT 03/14/2023 15:19 EDT us Carrington Calderon MD CHEMISTRY & BLOOD G ORDERABLES Final Result Performing Organization Address City/[facility]/ZIP Co de Phone Number [facility] [address] [place] [address] documented in this encounter Visit Diagnoses Diagnosis Type 2 diabetes mellitus with diabetic polyneuropathy, with long-term current use of insulin ([facility]) Night sweats Generalized hyperhidrosis Lymphocytosis Lymphocytosis (symptomatic) documented in this encounter Care Teams Supervisor Sewer Maintenance Relationship Specialty Start Date End Date Carrington Calderon MD 1 [facility] 1 [place] [phone] PCP - General Internal Medicine - Primary Care 12/09/20 documented as of this encounter
--- OUTSIDE RECORDS SUMMARY | 2024-06-03 09:03 | XMS_ITS | Encounter Summary ---
Author Organization [facility] Address [address] [place] [address] Care Team Providers Care Closing Supervisor Name Role Phone Carrington Calderon MD Primary Care Provi anedrs Reason for Referral * Referral (Routine/Next Available) - Specialty Report Received Specialty Diagnoses / Procedures Referred By Kit goode Referred To Contact Multidisciplinary Diagnoses Adjustment reaction with anxiety and depression Carrington Calderon MD Phone: tel: fax: [facility] [address], [address] [place] [address] Phone: tel: fax: Referral ID Status Reason Start Date Expiration Date Visits Requested Visits Authorized [id number] Specialty Report Received Specialty Services Required 3 1 1 Question Answer Reason for Request: community therapist Reason for Visit * Reason Onset Date Comments Referral Request 03/28/2023 Encounter Details Date Type Department Care Team (Late st Contact Info) Description 03/28/2023 Telephone [facility] Adult Primary Care - [place] 1 [place], [place] [phone] Carrington Calderon MD 1 [facility] Level 1 [place] [phone] Referral Request Social History Tobacco Use Types [...] the short-term targeted therapy available through our [facility]. With this in mind, I have signed a medical home/care management referral so that she can be connected with a social media content specialist to help her through this process. If I am mistaken and she is interested in short-term therapy through this office, happy to sign a [facility] referral. Please double check with her. Thanks. [...] AMB CONS/FOLLOW UP OUTPATIENT CARE MANAGEMENT - [facility] Outpatient Referral Routine/Next Available Adjustment reaction with anxiety and depression Expected: 04/05/2023 (Approximate), Expires: 03/29/2024 documented as of this encounter Visit Diagnoses Diagnosis Adjustment reaction with anxiety and depression- Primary Adjustment disorder with mixed anxiety and depressed mood documented in this encounter Care Teams Closing Supervisor Relationship Specialty Start Date End Date Carrington Calderon MD 1 [facility] 1 [place] [address] PCP - General Internal Medicine - Primary Care 12/09/20 documented as of this encounter
--- OUTSIDE RECORDS SUMMARY | 2024-06-03 09:03 | XMS_ITS | Encounter Summary ---
Author Organization [facility] Address [address] [place] [address] Care Team Providers Care Fish Hatchery Manager Name Role Phone Carrington Calderon MD Primary Care Provi anders Reason for Visit * Reason Comments Med Change Request Encounter Details Date Type Department Care Team (Late st Contact Info) Description 01/06/2023 [facility] Adult Primary Care [facility] 1 [place], [place] [phone] Staci Adhikari MD 1 [facility] Level [address] [place] [phone] Med Change Request Social History Tobacco [...] Primary documented in this encounter Care Teams Fish Hatchery Manager Relationship Specialty Start Date End Date Carrington Calderon MD 1 [facility] Level 1 [place] [address] PCP - General Internal Medicine - Primary Care 12/09/20 documented as of this encounter
--- OUTSIDE RECORDS SUMMARY | 2024-06-03 09:03 | XMS_ITS | Encounter Summary ---
Author Organization [facility] Address [address] [place] [address] Care Team Providers Care Building Engineer Name Role Phone Carrington Calderon MD Primary Care Provi anders Abigail Díaz Unavailable Carmelo Hendrickson Unavailable Unavailable Abigail Díaz Unavailable [phone] Encounter Details Date Type Department Care Team (Late st Contact Info) Description 10/27/2022 Lab Requisition [facility] Pathology & Laboratory Medicine - [address] [address] Dale Collier MD [address] [place] [address] [address] [place], [place] [address] Nausea; Vomiting, unspecified Social History Tobacco Use [...] explore management options, if applicable. 11/02/2022 17:09 [facility] Final Diagnosis A. DUODENUM, BIOPSY: - Enteric mucosa with no significant diagnostic abnormality. B. STOMACH, ANTRUM, BIOPSY: - Antral-type mucosa with chemical (reactive) gastropathy. C. GASTROESOPHAGEAL JUNCTION, BIOPSY: - Active esophagitis with ulcer. - GMS stain is negative for fungal hyphae within squamous epithelium. - Negative for viral cytopathic effect. - No pill fragments identified. - See comment. 11/02/2022 17:09 [facility] Diagnosis Comment [employer] slides of this case were reviewed at the gastrointestinal/li skyla intradepartmental consultation conference. (, KT, RW) 11/02/2022 17:09 [facility] Attestation By the signature below, the attending physician certifies that they have 1) personally conducted a gross and/or microscopic examination of the described specimen(s), and/or personally interpreted the results of laboratory testing of the described specimen(s), and 2) personally rendered or confirmed the above diagnosis. 11/02/2022 17:09 [facility] at 1709 Clinical History Nausea and vomiting, history of gastroparesis; duodenitis, esophagitis 11/02/2022 17:09 [facility] Gross Description A. Received [...] C1. EUNICE GEE(ASCP) 10/27/2022 18:08 11/02/2022 17:09 [facility] Performing Lab [facility] 11/02/2022 17:09 [facility] Scanned Images 11/02/2022 17:09 [facility] Tissue ENTIRE ESOPHAGUS / Unknown 10/27/2022 11:15 EDT 10/27/2022 16:58 EDT Tissue specimen (specimen) STOMACH STRUCTURE / Unknown 10/27/2022 11:15 EDT 10/27/2022 16:58 EDT Tissue specimen (specimen) ESOPHAGEAL STRUCTURE / Unknown 10/27/2022 11:15 EDT 10/27/2022 16:58 EDT us Dale Collier MD PATHOLOGY ORDERABLES Fin al Result [facility] [address] [place] [address] documented in this encounter Visit Diagnoses Diagnosis Nausea Nausea alone Vomiting, unspecified documented in this encounter Care Teams Building Engineer Relationship Specialty Start Date End Date Carrington Calderon MD 1 [facility] 1 [place] [address] PCP - General Internal Medicine - Primary Care 12/09/20 Abigail Díaz Counter Dish Carrier 04/21/23 01/03/24 Carmelo Hendrickson Coordinator 12/01/23 Abigail Díaz Counter Dish Carrier 01/04/24 documented as of this encounter
--- OUTSIDE RECORDS SUMMARY | 2024-06-03 09:03 | XMS_ITS | Encounter Summary ---
Author Organization [facility] Address [address] [place] [address] Care Team Providers Care Environmental Services Technician Name Role Phone Carrington Calderon MD Primary Care Provi anders BarahonaJameyClayAmrita Unavailable Reason for Referral * Consult (Routine/Next Available) - Closed Specialty Diagnoses / Procedures Referred By Kit goode Referred To Contact Diagnoses Carrington Rothman MD Phone: tel: fax: [address] [address] Phone: tel: fax: Referral ID Status Reason Start Date Expiration Date V isits Requested Visits Authorized [id number] Closed Specialty Services Required 04/21/2023 1 0 Question Answer Reason for Request: smoking cessation * Referral (Routine/Next Available) - Authorization Not Required Specialty Diagnoses / Procedures Referred By Kit goode Referred To Contact Multidisciplinary Diagnoses Carrington Rothman MD Phone: tel: fax: [address], [address] [place] [address] Phone: tel: fax: Referral ID Status Reason Start Date Expiration Date Visits Requested Visits Authorized [id number] Authorization Not Required Specialty Services Required 04/21/20 23 1 1 Question Answer Reason for Request: tobacco cessation support Encounter Details Date Type Department Care Team (Late st Contact Info) Description 04/21/2023 Patient Outreach [facility] Adult Primary Care [address] [address] Bre Amrita Smoking (Primary Dx) Social History [...] * Amrita Asencio - 04/21/2023 1104 EST [facility] Care Management Assessment and Care Plan Referral Reason: interested in therapy Pertinent medical and behavioral health issues: ENT Chronic left ear pain ?? Infectious Disease Skin infection ?? Endocrine/Metabolic Pannus, abdominal Type 2 diabetes mellitus with diabetic polyneuropathy, with long-term current use of insulin (HCC-CMS) ([facility]) ?? Gastrointestinal/Abdominal Gastroparesis ?? Psychiatric [...] - BCB* ASUNCION LUO 05/08/1986 Male Spouse [id number] 02/14/22 [id number] [address], [place] [address] 2. MEDICAID ACO * CRISTY LUO 1985 Female Self [id number] 06[birth year]06[birth year]22 [address] Any gaps or barriers with healthcare insurance coverage: No DME: scooter, due to amputee diabetic sensor DME vendor: [employer] secondary insurance covers supplies Barriers to using [...] today within 1 week and will contact career center director if additional assistance is needed as discussed. 2. stella will schedule a counseling appointment with at least one of the counselors provided today within 1 week and will follow up with career center director at next scheduled follow up on within [...] marijuana use to combat anxiety symptoms manager auto reviewed current mental health resources with Stella [...] AMB CONS/FOLLOW UP OUTPATIENT CARE MANAGEMENT - [facility] Outpatient Referral Routine Consult Smoking Expected: 04/28/2023 (Approximate), Expires: 04/21/2024 AMB CONS/FOLLOW UP SMOKING CESSATION PROGRAM Outpatient Referral Routine Consult Smoking Expected: 04/28/2023 (Approximate), Expires: 04/21/2024 documented as of this encounter Visit Diagnoses Diagnosis Smoking- Primary Tobacco use disorder documented in this encounter Care Teams Environmental Services Technician Relationship Specialty Start Date End Date Carrington Calderon MD 1 [facility] Level 1 [place] [address] PCP - General Internal Medicine - Primary Care 12/09/20 Amrita Asencio Fitter / Welder 04/21/23 01/03/24 documented as of this encounter
--- OUTSIDE RECORDS SUMMARY | 2024-06-03 09:03 | XMS_ITS | Encounter Summary ---
Author Organization [facility] Address [address] [place] [address] Care Team Providers Care Programmer Analyst Consultant Name Role Phone Carrington Calderon MD Primary Care Provi anders Reason for Visit * Reason Onset Date Comments Critical Value 03/14/2023 Encounter Details Date Type Department Care Team (Late st Contact Info) Description 03/14/2023 Telephone [facility] Adult Primary Care - [place] 1 [place], [place] [address] Carrington Calderon MD 1 [facility] Level 1 [place] [phone] Critical Value Social History Tobacco [...] minutes. She was instructed to call the marine electronics technician MD if it was not going up [...] on filedocumented in this encounter Care Teams Programmer Analyst Consultant Relationship Specialty Start Date End Date Carrington Calderon MD 1 [facility] 1 [place] [phone] PCP - General Internal Medicine - Primary Care 12/09/20 documented as of this encounter
--- OUTSIDE RECORDS SUMMARY | 2024-06-03 09:03 | XMS_ITS | Encounter Summary ---
Author Organization [facility] Address [address] [place] [address] Care Team Providers Care Manager Education Name Role Phone Carrington Calderon MD Primary Care Provi anders Reason for Referral * Consult (Routine/Next Available) - Specialty Report Received Specialty Diagnoses / Procedures Referred By Kit goode Referred To Contact Endocrinology Diagnoses Type 2 diabetes mellitus with diabetic polyneuropathy, with long-term current use of insulin ([facility]) Fermin Skinner MD Phone: tel: fax: Harjinder Azevedo DO Phone: tel: fax: Referral ID Status Reason Start Date Expiration Date Visits Requested Visits Authorized [id number] Specialty Report Received Specialty Services Required 04/14/2023 1 1 Question Answer Reason for Request: Type II DM Reason for Visit * Reason Onset Date Comments Referral Request 04/14/2023 Encounter Details Date Type Department Care Team (Late st Contact Info) Description 04/14/2023 Telephone [facility] Adult Primary Care - [place] [address] [place], [place] [phone] Carrington Calderon MD 1 [facility] Level 1 [place] [phone] Referral Request Social History Tobacco Use Types [...] EST Spoke with pt who reports her insurance representative recommended she see Dr Azevedo for diabetes. Referral pended for review. * Telephone Encounter - Misty Barahona - 04/14/2023 1308 EST Stella came up to the electrician front today (Spouse has an appointment) and is requesting a referral to Nathanael Azevedo, Road Marker. documented in this encounter Plan of Treatment Scheduled Referrals Name Type Priority Associated Diagnoses Order Schedule AMB CONS/FOLLOW UP ENDOCRINOLOGY Outpatient Referral Routine/Next Available Type 2 diabetes mellitus with diabetic polyneuropathy, with long-term current use of insulin ([facility] ([facility]) Expected: 04/21/2023 (Approximate), Expires: 04/14/2024 documented as of this encounter Visit Diagnoses Diagnosis Type 2 diabetes mellitus with diabetic polyneuropathy, with long-term current use of insulin ([facility] ([facility])- Primary documented in this encounter Care Teams Manager Education Relationship Specialty Start Date End Date Carrington Calderon MD 1 [facility] 1 [place] [phone] PCP - General Internal Medicine - Primary Care 12/09/20 documented as of this encounter
--- OUTSIDE RECORDS SUMMARY | 2024-06-03 09:03 | XMS_ITS | Encounter Summary ---
Author Organization [facility] Address [address] [place] [address] Care Team Providers Care Solar Energy Systems Designer Name Role Phone Carrington Calderon MD Primary Care Provi anders Reason for Visit * Reason Comments Medication Management Encounter Details Date Type Department Care Team (Late st Contact Info) Description 12/17/2022 14:45 EDT Telemedicine [facility] Adult Primary Care - [address] [address] Carrington Calderon MD 1 [facility] Level 1 [place] [phone] Type 2 diabetes mellitus with diabetic polyneuropathy, with long-term current use of insulin ([facility]) (Primary Dx); Anxiety and depression; Gastroparesis; [...] of Assessment Author No 10/02/2020 23:50 EDT [place], Krist in, RN * Are you blind [...] Notes * Carrington Calderon MD - 12/17/2022 6663 EDT Primary Care Video Visit Assessment & Plan Diagnoses and all orders for this visit: Type 2 diabetes mellitus with diabetic polyneuropathy, with long-term current use of insulin ([facility]) ([facility]): No change made today. Will [...] current medications and allergies ROS - See [facility] TELEMEDICINE VIDEO VISIT Today's visit was provided through telemedicine video conferencing: The location of the patient : Home The location of the provider: Office The following staff and their role did participate in today's encounter visit: Carrington Calderon MD Objective There were no vitals taken for this visit. Physical Exam * Jose Luis Wilson - 12/17/2022 5369 EDT The concept of ???Telemedicine?? has been [...] polyneuropathy, with long-term current use of insulin ([facility])- Primary Anxiety and depression Dysthymic disorder [...] as of this encounter Care Teams Solar Energy Systems Designer Relationship Specialty Start Date End Date Carrington Calderon MD 1 [facility] 1 [place] [phone] PCP - General Internal Medicine - Primary Care 12/09/20 documented as of this encounter
--- OUTSIDE RECORDS SUMMARY | 2024-06-03 09:03 | XMS_ITS | Encounter Summary ---
Author Organization [facility] Address [address] [place] [address] Care Team Providers Care Glove Parts Inspector Name Role Phone Carrington Calderon MD Primary Care Provi anders Abigail Díaz Unavailable Carmelo Hendrickson Unavailable Unavailable Abigail Díaz Unavailable Reason for Visit * Reason Onset Date Comments Prior Auth, Medication 11/18/2022 Encounter Details Date Type Department Care Team (Late st Contact Info) Description 11/18/2022 Telephone [facility] Adult Primary Care - [address] [phone] Carrington Calderon MD 1 [facility] Level [address] [place] [phone] Prior Auth, Medication Social History Tobacco Use [...] polyneuropathy, with long-term current use of insulin ([facility]) Inject 8-14 Units into [...] 100 unit/mL (3 mL) injectable pen Mejia: [id number] documented in this encounter Plan of Treatment Not on file documented as of this encounter Visit Diagnoses Diagnosis Type 2 diabetes mellitus with diabetic polyneuropathy, with long-term current use of insulin ([facility])- Primary documented in this [...] documented as of this encounter Care Teams Glove Parts Inspector Relationship Specialty Start Date End Date Carrington Calderon MD 1 [facility] Level 1 [place] [phone] PCP - General Internal Medicine - Primary Care 12/09/20 Abigail Díaz Incinerator Attendant 04/21/23 01/03/24 Carmelo Hendrickson Coordinator 12/01/23 Abigail Díaz Incinerator Attendant 01/04/24 documented as of this encounter
--- OUTSIDE RECORDS SUMMARY | 2024-06-03 09:03 | XMS_ITS | Encounter Summary ---
Author Organization [facility] Address [address] [place] [address] Care Team Providers Care Employee Services Manager Name Role Phone Carrington Calderon MD Primary Care Provi anders Abigail Díaz Unavailable Carmelo Hendrickson Unavailable Unavailable Abigail Díaz Unavailable Reason for Visit * Reason Comments Medications Refill Encounter Details Date Type Department Care Team (Late st Contact Info) Description 01/04/2023 Refill [facility] Adult Primary Care - [address] [address] Carrington Calderon MD 1 [facility] Level 1 [place] [phone] Medications Refill Social History Tobacco Use Types [...] HOURS NEEDED FOR PAIN. DAILY MAX 200MG [facility] [address] [place] [address] Confirmed Pharmacy? Yes Patient out of medication? Unknown Last Refill Date: 11/17/22 Refills left? (explain exceptions requiring early refill) No Recent Visits Date Type Provider Dept 11/17/22 Office Visit Carrington Calderon MD [facility] Adult [place] Care 09/02/22 Office Visit Nimisha Clifton, GUSTAVO [facility] Adult Prim Care 05/20/22 Office Visit Rachel Stein PA-C [facility] Adult Prim Care Showing recent visits within past 540 days with a meds authorizing provider and meeting all other requirements Future Appointments Date Type Provider Dept 03/16/23 Appointment Carrington Calderon MD [facility] Adult Prim Care Showing future [...] documented as of this encounter Care Teams Employee Services Manager Relationship Specialty Start Date End Date Carrington Calderon MD 1 [facility] 1 [place] [phone] PCP - General Internal Medicine - Primary Care 12/09/20 Abigail Díaz Measuring Clerk 04/21/23 01/03/24 Carmelo Hendrickson Coordinator 12/01/23 Abigail Díaz Measuring Clerk 01/04/24 documented as of this encounter
--- OUTSIDE RECORDS SUMMARY | 2024-06-03 09:03 | XMS_ITS | Encounter Summary ---
Author Organization [facility] Address [address] [place] [address] Care Team Providers Care Metal Sash Setter Name Role Phone Carrington Calderon MD Primary Care Provi anders Reason for Referral * Consult (Routine/Next Available) - Closed Specialty Diagnoses / Procedures Referred By Kit goode Referred To Contact Diagnoses Cyclical vomiting Carrington Calderon MD Phone: tel: fax: Mallorie Martinez MD [address] [place] [phone] Phone: tel: fax: Referral ID Status Reason Start Date Expiration Date V isits Requested Visits Authorized [id number] Closed Specialty Services Required 03/16/2023 1 1 Question Answer Reason for Request: cyclic menstrual vomiting- LARC with suppression of menses [facility] Reason for Visit * Reason Comments Follow-up Diabetes Encounter Details Date Type Department Care Team ([facility] Contact Info) Description 03/16/2023 10:15 EDT Telemedicine [facility] Adult Primary Care - [address] [phone] Carrington Calderon MD 1 [facility] Level 1 [place] [phone] Cyclical vomiting (Primary Dx); Anxiety and depression; Type 2 diabetes mellitus with diabetic polyneuropathy, with long-term current use of insulin ([facility]) (HCC); Night sweats; Lymphocytosis; Abnormal TSH Social [...] Home Patient location state: Visit Location State: [place] The location of the provider: Office Provider location state: Visit Location State: [place] The following people and their roles were [...] polyneuropathy, with long-term current use of insulin ([facility]) ([facility]): Stella is in need of new Dexcom supplies. I sent a prescription to her pharmacy. I will alsosend her an invite through [employer] so that I am able to review [...] has a stepdaughter who she has raised motion and time study teacher since age 4. All 3 children have [...] 16.01(H) 4.00 - 12.40 K/cmm 03/17/2023 14:47 [facility] RBC 4.25 3.86 - 5.04 M/cmm 03/17/2023 14:47 [facility] Hemoglobin 13.8 11.6 - 15.2 g/dL 03/17/2023 14:47 [facility] HCT 39.0 34.9 - 44.4 % 03/17/2023 14:47 [facility] MCV 92 81 - 98 fL 03/17/2023 14:47 [facility] MCH 32.5 26.7 - 33.3 pg 03/17/2023 14:47 [facility] MCHC 35.4 32.1 - 35.9 g/dL 03/17/2023 14:47 [facility] RDW-CV 12.7 <14.7 % 03/17/2023 14:47 [facility] RDW-SD 42.2 <50.4 fl 03/17/2023 14:47 [facility] PLT 435(H) 141 - 377 K/cmm 03/17/2023 14:47 [facility] MPV 9.5 9.5 - 12.7 fL 03/17/2023 14:47 [facility] % Neutrophils 44.3 % 03/17/2023 14:47 [facility] % Lymphocytes 44.1 % 03/17/2023 14:47 [facility] % Monocytes 7.4 % 03/17/2023 14:47 [facility] % Eosinophils 3.3 % 03/17/2023 14:47 [facility] % Basophils 0.6 % 03/17/2023 14:47 [facility] % Immature Grans 0.3 % 03/17/20 14:47 [facility] Absolute Neutrophils 7.09 2.20 - 8.85 K/cmm 03/17/2023 14:47 [facility] Absolute Lymphocytes 7.06(H) 1.09 - 3.30 K/cmm 03/17/2023 14:47 [facility] Absolute Monocytes 1.19(H) 0.10 - 0.80 K/cmm 03/17/2023 14:47 [facility] Absolute Eosinophils 0.53 0.03 - 0.61 K/cmm 03/17/2023 14:47 [facility] ABS Basophils 0.09 0.01 - 0.11 K/cmm 03/17/2023 14:47 [facility] Absolute Immature Grans 0.05 0.00 - 0.06 K/cmm 03/17/2023 14:47 [facility] Type of Differential: Auto 03/17/2023 14:47 [facility] Blood VENOUS BLOOD / Unknown Venipuncture / Unknown 03/17/2023 13:52 EDT 03/17/2023 13:52 EDT us Carrington Calderon MD PACKAGES & DNA PROB E ORDERABLES Final Result [facility] [address] [place] [address] * LEUKEMIA/LYMPHOMA PANEL BY FLOW CYTOMETRY (03/17/2023 13:52 EDT) Final Immunophenotypic Interpretation Peripheral blood, flow cytometric analysis: - No immunophenotypic evidence of a clonal cell population. See comment. 12:55 [facility] Comment The results of flow cytometry show no immunophenotypic evidence of involvement by a clonal lymphoproliferative disorder. Correlation of these findings with morphologic and clinical data is essential. 3 12:55 [facility] Attestation By the signature below, the attending physician certifies that they have 1) personally conducted a gross and/or microscopic examination of the described specimen(s), and/or personally interpreted the results of laboratory testing of the described specimen(s), and 2) personally rendered or confirmed the above diagnosis. 3 12:55 [facility] at 1255 Clinical History night sweats, lymphocytosis, smudge cells 3 12:55 [facility] Description The specimen consists [...] There is no increase in blasts. 12:55 [facility] Flow Markers CD10, CD117, CD11c, CD16, CD19, CD20, CD3, CD33, CD34, CD38, CD4, CD45, CD5, CD56, CD8, HLA-DR, [place], and Lambda 3 12:55 [facility] FDA Disclaimer This test was developed and its performance characteristics determined by the Department of Pathology and Laboratory Medicine, [facility], [place], [place] It has not been cleared [...] complexity clinical laboratory testing. 3 12:55 EDT [facility] Sample Analyzed Date and Time 03/18/23 at 1106 3 12:55 EDT [facility] Scanned Images 3 12:55 EDT [facility] Blood VENOUS BLOOD / Unknown Venipuncture / Unknown 03/17/2023 13:52 EDT 03/17/2023 13:52 EDT Carrington Calderon MD PATHOLOGY ORDERABLE S Final Result Performing Organization Address [facility]/ZIP Co de Phone Number [facility] [address] [place] [address] * THYROID-STIMULATING IMMUNOGLOBULIN (TSI), SERUM (03/14/2023 15:19 EDT) Thyroid-Stimulati ng Immunoglobin, S <1.0 <=1.3 TSI index 03/25/2023 15:55 EDT [facility] Comment: Test Performed by: [facility] [address] [place] [id number] Rip And Groove Machine Operator: Wiley Fry M.D. Ph.D.; CLIA# [id number] Blood VENOUS BLOOD / Unknown Venipuncture / Unknown 03/14/2023 15:19 EDT 03/18/2023 16:07 EDT Carrington Calderon MD CHEMISTRY & BLOOD G ORDERABLES Final Result [facility] [address] [place] [address] * T3, TOTAL (03/14/2023 15:19 EDT) T3, Total 143 97 - 169 ng/dL 03/16/2023 15:56 EDT [facility] Blood VENOUS BLOOD / Unknown Venipuncture / Unknown 03/14/2023 15:19 EDT 03/14/2023 15:19 EDT Carrington Calderon MD CHEMISTRY & BLOOD G ORDERABLES Final Result Performing Organization Address [facility]/ZIP Co de Phone Number [facility] [address] [place] [address] * T4 FREE (03/14/2023 15:19 EDT) T4, Free 1.3 0.8 - 2.2 ng/dL 03/16/2023 14:42 EDT [facility] Blood VENOUS BLOOD / Unknown Venipuncture / Unknown 03/14/2023 15:19 EDT 03/14/2023 15:19 EDT Carrington Calderon MD CHEMISTRY & BLOOD G ORDERABLES Final Result Performing Organization Address [facility] de Phone Number [facility] [address] [place] [address] * (ABNORMAL) THYROID CASCADE (03/14/2023 15:19 EDT) Pathologist [facility] TSH 0.44(L) 0.47 - 4.68 mIU/L 03/16/2023 14:03 EDT [facility] Comment:Turbid sample identi fied, interpret with caution as turbidity may affect result. Blood VENOUS BLOOD / Unknown Venipuncture / Unknown 03/14/2023 15:19 EDT 03/14/2023 15:19 EDT Narrative [facility] - 03/16/2023 14:03 EDT NOTE: The results of this assay can be falsely lowered due to the consumption of Biotin. Carrington Calderon MD CHEMISTRY & BLOOD G ORDERABLES Final Result Performing Organization Address [facility] Co de Phone Number [facility] [address] [place] [address] documented in this encounter Visit Diagnoses Diagnosis [...] documented as of this encounter Care Teams Metal Sash Setter Relationship Specialty Start Date End Date Carrington Calderon MD 1 [facility] Level 1 [place] [phone] PCP - General Internal Medicine - Primary Care 12/09/20 documented as of this encounter
--- OUTSIDE RECORDS SUMMARY | 2024-06-03 09:03 | XMS_ITS | Encounter Summary ---
Author Organization [facility] Address [address] [place] [address] Care Team Providers Care Director Of Manufacturing Name Role Phone Carrington Calderon MD Primary Care Provi anders Reason for Visit * Reason Onset Date Comments Medications Refill 02/01/2023 Encounter Details Date Type Department Care Team (Late st Contact Info) Description 02/01/2023 Refill [facility] Adult Primary Care [address] [phone] Carrington Calderon MD 1 [facility] Level 1 [place] [phone] Medications Refill Social History Tobacco [...] as of this encounter Care Teams Director Of Manufacturing Relationship Specialty Start Date End Date Carrington Calderon MD 1 [facility] 1 [place] [phone] PCP - General Internal Medicine - Primary Care 12/09/20 documented as of this encounter
--- OUTSIDE RECORDS SUMMARY | 2024-06-03 09:03 | XMS_ITS | Encounter Summary ---
Author Organization [facility] Address [address] [place] [address] Care Team Providers Care Boarder Steam Name Role Phone Carrington Calderon MD Primary Care Provi anders Abigail Díaz Unavailable [phone] Reason for Visit * Reason Comments Nicotine Dependence Encounter Details Date Type Department Care Team (Late st Contact Info) Description 05/11/2023 Community Health Team [facility] Adult Primary Care - [place] [address] [place], [place] [phone] Kylah Wilson Social History Tobacco Use Types [...] No 10/02/2020 23:50 River Cavanauhg RN * Do you have difficulty dressing [...] and 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
--- OUTSIDE RECORDS SUMMARY | 2024-06-03 09:03 | XMS_ITS | Encounter Summary ---
Author Organization [facility] Address [address] [place] [address] Care Team Providers Care Senior Vice President Name Role Phone Carrington Calderon MD Primary Care Provi anders Reason for Visit * Reason Comments Med Change Request Encounter Details Date Type Department Care Team (Late st Contact Info) Description 12/20/2022 Refill [facility] Adult Primary Care [facility] 1 [place], [place] [address] Carrington Calderon MD 1 [facility] Level 1 [place] [phone] Med Change Request Social History [...] 1215 EDT prochlorperazine (COMPAZINE) 25 mg suppository [[id number]] ?? Order Details Dose: 25 mg Route: [...] vomiting documented in this encounter Care Teams Senior Vice President Relationship Specialty Start Date End Date Carrington Calderon MD 1 [facility] 1 [place] [phone] PCP - General Internal Medicine - Primary Care 12/09/20 documented as of this encounter
--- OUTSIDE RECORDS SUMMARY | 2024-06-03 09:03 | XMS_ITS | Encounter Summary ---
Author Organization [facility] Address [address] [place] [address] Care Team Providers Care Spot Facer Name Role Phone Carrington Calderon MD Primary Care Provi anders Reason for Visit * Reason Onset Date Comments Coordination Of Care 03/30/2023 Encounter Details Date Type Department Care Team (Late st Contact Info) Description 03/30/2023 Telephone [facility] Adult Primary Care [facility] 1 [place], [place] [phone] Carrington Calderon MD 1 [employer] Level 1 [place] [phone] Coordination Of Care Social History [...] [facility] ([facility]) documented in this encounter Care Teams Spot Facer Relationship Specialty Start Date End Date Carrington Calderon MD 1 [facility] 1 [place] [address] PCP - General Internal Medicine - Primary Care 12/09/20 documented as of this encounter
--- OUTSIDE RECORDS SUMMARY | 2024-06-03 09:03 | XMS_ITS | Encounter Summary ---
Author Organization [facility] Address [address] [place] [address] Care Team Providers Care Machine Boss Name Role Phone Carrington Calderon MD Primary Care Provi anders Reason for Visit * Reason Onset Date Comments Medications Refill 03/16/2023 Encounter Details Date Type Department Care Team (Late st Contact Info) Description 03/16/2023 Refill [facility] Adult Primary Care [address] [phone] Carrington Calderon MD 1 [facility] Level 1 [place] [address] Medications Refill Social History Tobacco [...] 0946 EDT omeprazole (PRILOSEC) 20 mg capsule [[id number]] ?? Order Details Dose: 20 mg Route: oral Frequency: DAILY Dispense Quantity: 90 Capsule Refills: 3 ?? Sig: Take 1 Capsule by mouth daily. ?? Start Date: 12/17/22 End Date: -- Written Date: 12/17/22 ondansetron (ZOFRAN-ODT) 4 mg disintegrating tablet [[id number]] ?? Order Details Dose: 4 mg Route: oral Frequency: EVERY 8 HOURS PRN for Nausea Dispense Quantity: 30 Tablet Refills: 11 ?? Sig: Take 1 Tablet by mouth every 8 hours as needed for Nausea. ?? Start Date: 11/17/22 End Date: -- Written Date: 11/17/22 Expiration Date: -- ?? insulin glargine (LANTUS SOLOSTAR/SEMGLEE) 100 unit/mL (3 mL) injection pen [[id number]] ?? Order Details Dose: 40 Units Route: subcutaneous Frequency: AT BEDTIME Dispense Quantity: 36 mL Refills: 4 ?? Sig: Inject 40 Units into the skin at bedtime. ?? Start Date: 11/17/22 End Date: -- Written Date: 11/17/22 LORazepam (ATIVAN) 0.5 mg tablet [[id number]] ?? Order Details Dose: 0.5 mg Route: oral Frequency: DAILY PRN for Anxiety Dispense Quantity: 30 Tablet Refills: 3 ?? Sig: Take 1 Tablet by mouth daily as needed for Anxiety. ??Daily Max: 0.5 mg ?? Start Date: 11/17/22 End Date: -- Written Date: 11/17/22 Expiration Date: 05/16/23 ?? * Telephone Encounter - Eryn Pack RN - 03/16/2023 6979 EDTFrom: Cristy Luo To: Office of Carrington [...] capsule [Carrington Calderon] Preferred pharmacy: [facility] [address] [place] [address] documented in this encounter Plan of Treatment Not on file documented as of this encounter Visit Diagnoses Diagnosis Anxiety Anxiety state, unspecified Type 2 diabetes mellitus with diabetic polyneuropathy, with long-term current use of insulin ([facility]) Gastroparesis documented in this encounter Care Teams Machine Boss Relationship Specialty Start Date End Date Carrington Calderon MD [address] [facility] 1 [place] [address] PCP - General Internal Medicine - Primary Care 12/09/20 documented as of this encounter
--- OUTSIDE RECORDS SUMMARY | 2024-06-03 09:03 | XMS_ITS | Encounter Summary ---
Author Organization [facility] Address [address] [place] [address] Care Team Providers Care Costuming Supervisor Name Role Phone Carrington Calderon MD Primary Care Provi anders Abigail Díaz Unavailable Carmelo Hendrickson Unavailable Unavailable Abigail Díaz Unavailable Reason for Visit * Reason Comments Medications Refill Encounter Details Date Type Department Care Team (Late st Contact Info) Description 03/31/2023 Refill [facility] Adult Primary Care - [address] [address] Carrington Calderon MD 1 [facility] Level 1 [place] [phone] Medications Refill Social History Tobacco Use Types [...] polyneuropathy, with long-term current use of insulin ([facility]) INJECT 12 UNITS THREE TIMES DAILY WITH [...] 12 UNITS THREE TIMES DAILY WITH MEALS [facility] [address] [place] [address] [employer] Confirmed Pharmacy? Yes Patient out of medication? Unknown How many pills does patient have left? unknown Last Refill Date: 11/18/22 Refills left? (explain exceptions requiring early refill) No Recent Visits Date Type Provider Dept 11/17/22 Office Visit Carrington Calderon MD [facility] Adult Prim Care 09/02/22 Office Visit Nimisha Clifton NP [facility] Adult Prim Care 05/20/22 Office Visit Rachel Stein PA-C [facility] Adult Prim Care Showing recent visits within past 540 days with a meds authorizing provider and meeting all other requirements Future Appointments Date Type Provider Dept 06/27/23 Appointment Carrington Calderon MD [facility] Adult Prim Care Showing future [...] use of insulin ([facility]) documented in this encounter Care Teams Costuming Supervisor Relationship Specialty Start Date End Date Carrington Calderon MD 1 [facility] 1 [place] [phone] PCP - General Internal Medicine - Primary Care 12/09/20 Abigail Díaz Director Of Regulatory Affairs 04/21/23 01/03/24 Carmelo Hendrickson Coordinator 12/01/23 Abigail Díaz Director Of Regulatory Affairs 01/04/24 documented as of this encounter
--- OUTSIDE RECORDS SUMMARY | 2024-06-03 09:03 | XMS_ITS | Encounter Summary ---
Author Organization [facility] Address [address] [place] [address] Care Team Providers Care Jewel Diameter Gauger Name Role Phone Carrington Calderon MD Primary Care Provi anders Abigail Díaz Unavailable Carmelo Hendrickson Unavailable Unavailable Abigail Díaz Unavailable Reason for Visit * Reason Onset Date Comments Appointment Related 05/04/2023 Encounter Details Date Type Department Care Team (Late st Contact Info) Description 05/04/2023 Telephone [facility] Endocrinology - [facility] [address] [place] [address] Amilcar Ortega MD 62 [facility] [address] [place] [address] Appointment Related Social History Tobacco [...] - 05/04/2023 0823 EST Patient accepted zoom [employer] opening with Dr. Ortega today at 4:00. documented in this encounter Plan of Treatment Not on file documented as of this encounter Visit Diagnoses Not on filedocumented in this encounter Care Teams Jewel Diameter Gauger Relationship Specialty Start Date End Date Carrington Calderon MD 1 [facility] 1 [place] [address] PCP - General Internal Medicine - Primary Care 12/09/20 Abigail Díaz Mucking Machine Operator 04/21/23 01/03/24 Carmelo Hendrickson Coordinator 12/01/23 Abigail Díaz Mucking Machine Operator 01/04/24 documented as of this encounter
--- OUTSIDE RECORDS SUMMARY | 2024-06-03 09:03 | XMS_ITS | Encounter Summary ---
Author Organization [facility] Address [address] [place] [address] Care Team Providers Care Die Attaching Machine Tender Name Role Phone Carringotn Calderon MD Primary Care Provi anders Reason for Visit * Reason Onset Date Comments Prior Auth, Medication 04/03/2023 Encounter Details Date Type Department Care Team (Late st Contact Info) Description 04/03/2023 Telephone [facility] Adult Primary Care [address] [phone] Carrington Calderon MD 1 [facility] Level 1 [place] [address] Prior Auth, Medication Social History [...] long-term current use of insulin ([facility]) Inject 12 Units into the [...] long-term current use of insulin ([facility])- Primary documented in this encounter Discontinued Medications Medication Sig Discontinue Reason Start Date End Da te NOVOLOG FLEXPEN U-100 INSULIN 100 unit/mL (3 mL) injectable penIndications:Type 2 diabetes mellitus with diabetic polyneuropathy, with long-term current use of insulin ([facility]) INJECT 12 UNITS THREE TIMES DAILY WITH MEALS Insurance does not cover 04/01/2023 04/04/2023 insulin lispro (HUMALOG KWIKPEN INSULIN) 100 unit/mL injectable penIndications:Type 2 diabetes mellitus with diabetic polyneuropathy, with long-term current use of insulin ([facility]) Inject 8-14 Units into the skin 3 times daily with meals. Reorder 11/18/2022 04/04/2023 documented as of this encounter Care Teams Die Attaching Machine Tender Relationship Specialty Start Date End Date Carrington Calderon MD 1 [facility] Level 1 [place] [phone] PCP - General Internal Medicine - Primary Care 12/09/20 documented as of this encounter
--- OUTSIDE RECORDS SUMMARY | 2024-06-03 09:03 | XMS_ITS | Encounter Summary ---
Author Organization [facility] Address [address] [place] [address] Care Team Providers Care Chief Accountant Name Role Phone Carrington Calderon MD Primary Care Provi anders Abigail Díaz Unavailable [phone] Carmelo Hendrickson Unavailable Unavailable Abigail Díaz Unavailable Reason for Visit * Reason Comments Medications Refill Encounter Details Date Type Department Care Team (Late st Contact Info) Description 03/31/2023 Refill [facility] Adult Primary Care - [address] [phone] Vicki Mosqueda MD [address] [place] [phone] Medications Refill Social History Tobacco Use Types [...] Sig: INJECT 40 UNITS SUBCUTANEOUSLY AT BEDTIME [facility] [address] [place] [address] Confirmed Pharmacy? Yes Patient out of medication? Unknown How many pills does patient have left? unknown Last Refill Date: 11/17/22 Refills left? (explain exceptions requiring early refill) No Recent Visits Date Type Provider Dept 11/17/22 Office Visit Carrington Calderon MD [facility] Adult Prim Care 09/02/22 Office Visit Nimisha Clifton NP [facility] Adult Prim Care 05/20/22 Office Visit Rachel Stein PA-C [facility] Adult Prim Care Showing recent visits within past 540 days with a meds authorizing provider and meeting all other requirements Future Appointments Date Type Provider Dept 06/27/23 Appointment Carrington Calderon MD [facility] Adult Prim Care Showing future appointments within next 150 days with a meds authorizing provider and meeting all other requirements Future appointment: Already Scheduled JOSS WASHINGTON RN 04/01/2023 10:43 documented in this encounter Plan of Treatment Not on file documented as of this encounter Visit Diagnoses Not on filedocumented in this encounter Care Teams Chief Accountant Relationship Specialty Start Date End Date Carrington Calderon MD [address] [facility] 1 [place] [phone] PCP - General Internal Medicine - Primary Care 12/09/20 Abigail Díaz Land Planner 04/21/23 01/03/24 Carmelo Hendrickson Coordinator 12/01/23 Abigail Díaz Land Planner 01/04/24 documented as of this encounter
--- OUTSIDE RECORDS SUMMARY | 2024-06-03 09:03 | XMS_ITS | Encounter Summary ---
Author Organization [facility] Address [address] [place] [address] Care Team Providers Care Clinical Informatics Educator Name Role Phone Carrington Calderon MD Primary Care Provi anders Encounter Details Date Type Department Care Team (Late st Contact Info) Description 03/17/2023 13:45 EDT Phlebotomy Only [facility] Laboratory Services - [address] [address] Fast Food Team Member, [facility] Night sweats; Lymphocytosis [...] 16.01(H) 4.00 - 12.40 K/cmm 03/17/2023 14:47 [facility] RBC 4.25 3.86 - 5.04 M/cmm 03/17/2023 14:47 [facility] Hemoglobin 13.8 11.6 - 15.2 g/dL 03/17/2023 14:47 [facility] HCT 39.0 34.9 - 44.4 % 03/17/2023 14:47 [facility] MCV 92 81 - 98 fL 03/17/2023 14:47 [facility] MCH 32.5 26.7 - 33.3 pg 03/17/2023 14:47 [facility] MCHC 35.4 32.1 - 35.9 g/dL 03/17/2023 14:47 [facility] RDW-CV 12.7 <14.7 % 03/17/2023 14:47 [facility] RDW-SD 42.2 <50.4 fl 03/17/2023 14:47 [facility] PLT 435(H) 141 - 377 K/cmm 03/17/2023 14:47 [facility] MPV 9.5 9.5 - 12.7 fL 03/17/2023 14:47 [facility] % Neutrophils 44.3 % 03/17/2023 14:47 [facility] % Lymphocytes 44.1 % 03/17/2023 14:47 [facility] % Monocytes 7.4 % 03/17/2023 14:47 [facility] % Eosinophils 3.3 % 03/17/2023 14:47 [facility] % Basophils 0.6 % 03/17/2023 14:47 [facility] % Immature Grans 0.3 % 03/17/20 14:47 [facility] Absolute Neutrophils 7.09 2.20 - 8.85 K/cmm 03/17/2023 14:47 [facility] Absolute Lymphocytes 7.06(H) 1.09 - 3.30 K/cmm 03/17/2023 14:47 [facility] Absolute Monocytes 1.19(H) 0.10 - 0.80 K/cmm 03/17/2023 14:47 [facility] Absolute Eosinophils 0.53 0.03 - 0.61 K/cmm 03/17/2023 14:47 [facility] ABS Basophils 0.09 0.01 - 0.11 K/cmm 03/17/2023 14:47 [facility] Absolute Immature Grans 0.05 0.00 - 0.06 K/cmm 03/17/2023 14:47 [facility] Type of Differential: Auto 03/17/2023 14:47 [facility] Blood VENOUS BLOOD / Unknown Venipuncture / Unknown 03/17/2023 13:52 EDT 03/17/2023 13:52 EDT us Carrington Calderon MD PACKAGES & DNA PROB E ORDERABLES Final Result [facility] [address] [place] [address] * LEUKEMIA/LYMPHOMA PANEL BY FLOW CYTOMETRY (03/17/2023 13:52 EDT) Final Immunophenotypic Interpretation Peripheral blood, flow cytometric analysis: - No immunophenotypic evidence of a clonal cell population. See comment. 12:55 [facility] Comment The results of flow cytometry show no immunophenotypic evidence of involvement by a clonal lymphoproliferative disorder. Correlation of these findings with morphologic and clinical data is essential. 3 12:55 [facility] Attestation By the signature below, the attending physician certifies that they have 1) personally conducted a gross and/or microscopic examination of the described specimen(s), and/or personally interpreted the results of laboratory testing of the described specimen(s), and 2) personally rendered or confirmed the above diagnosis. 3 12:55 [facility] at 1255 Clinical History night sweats, lymphocytosis, smudge cells 3 12:55 [facility] Description The specimen consists [...] is no increase in blasts. 3 12:55 [facility] Flow Markers CD10, CD117, CD11c, CD16, CD19, CD20, CD3, CD33, CD34, CD38, CD4, CD45, CD5, CD56, CD8, HLA-DR, Anita, and Lambda 3 12:55 [facility] FDA Disclaimer This test was developed and its performance characteristics determined by the Department of Pathology and Laboratory Medicine, [facility], [place], [place] It has not been cleared or [...] high complexity clinical laboratory testing. 3 12:55 [facility] Sample Analyzed Date and Time 03/18/23 at 1106 3 12:55 [facility] Scanned Images 3 12:55 [facility] Blood VENOUS BLOOD / Unknown Venipuncture / Unknown 03/17/2023 13:52 EDT 03/17/2023 13:52 EDT us Carrington Calderon MD PATHOLOGY ORDERABLE S Final Result [facility] [address] [place] [address] documented in this encounter Visit Diagnoses Diagnosis Night sweats Generalized hyperhidrosis Lymphocytosis Lymphocytosis (symptomatic) documented in this encounter Care Teams Clinical Informatics Educator Relationship Specialty Start Date End Date Carrington Calderon MD 1 [facility] Level 1 [place] [address] PCP - General Internal Medicine - Primary Care 12/09/20 documented as of this encounter
--- OUTSIDE RECORDS SUMMARY | 2024-06-03 09:03 | XMS_ITS | Encounter Summary ---
Author Organization [facility] Address [address] [place] [address] Care Team Providers Care Merchandising Stock Associate Name Role Phone Carrington Calderon MD Primary Care Provi anders Abigail Díaz Unavailable [phone] Carmelo Hendrickson Unavailable Unavailable Abigail Díaz Unavailable Reason for Visit * Reason Onset Date Comments Coordination Of Care 02/17/2023 Encounter Details Date Type Department Care Team (Late st Contact Info) Description 02/17/2023 Telephone [facility] Adult Primary Care - [address] [phone] Carrington Calderon MD [address] [phone] Coordination Of Care Social History Tobacco Use [...] BLOOD COUNT AND DIFFERENTIAL (03/14/2023 15:19 EDT) [facility] WBC 18.08(H) 4.00 - 12.40 K/cmm 03/14/2023 16:23 [facility] RBC 4.40 3.86 - 5.04 M/cmm 03/14/2023 16:23 [facility] Hemoglobin 14.0 11.6 - 15.2 g/dL 03/14/2023 16:23 [facility] HCT 40.6 34.9 - 44.4 % 03/14/2023 16:23 [facility] MCV 92 81 - 98 fL 03/14/2023 16:23 [facility] MCH 31.8 26.7 - 33.3 pg 03/14/2023 16:23 [facility] MCHC 34.5 32.1 - 35.9 g/dL 03/14/2023 16:23 EDT [facility] RDW-CV 12.6 <14.7 % 03/14/2023 16:23 EDT [facility] RDW-SD 42.6 <50.4 fl 03/14/2023 16:23 EDT [facility] PLT 412(H) 141 - 377 K/cmm 03/14/2023 16:23 EDT [facility] MPV 9.3(L) 9.5 - 12.7 fL 03/14/2023 16:23 EDT [facility] Blood VENOUS BLOOD / Unknown Venipuncture / Unknown 03/14/2023 15:19 EDT 03/14/2023 15:19 EDT Carrington Calderon MD PACKAGES & DNA PROB E ORDERABLES Final Result Performing Organization Address [facility] [[email or web address]] de Phone Number [facility] [address] [place] [address] * (ABNORMAL) HEMOGLOBIN A1C (03/14/2023 15:19 EDT) Hemoglobin A1c 8.3(H) <5.7 % 03/14/2023 22:02 T [facility] Comment: Glycemic Status References: Normal: ??<5.7% Pre-Diabetes: ??5.7% - 6.4% Diagnostic of Diabetes: ??> or = 6.5% (if confirmed) Est Avg Glucose 192 mg/dL 22:02 T [facility] Comment:The eAG represents t he A1c result expressed as average glucose in mg/dL. Blood VENOUS BLOOD / Unknown Venipuncture / Unknown 03/14/2023 15:19 EDT 03/14/2023 15:19 EDT Carrington Calderon MD CHEMISTRY & BLOOD G ORDERABLES Final Result Performing Organization Address [facility]/ZIP Co de Phone Number [facility] [address] [place] [address] * (ABNORMAL) BASIC METABOLIC PANEL (BMP) (03/14/2023 15:19 EDT) Sodium 142 136 - 145 mmol/L 03/14/2023 16:[facility] Potassium 4.2 3.5 - 5.0 mmol/L 03/14/2023 16:50 [facility] Chloride 103 96 - 110 mmol/L 03/14/2023 16:50 [facility] CO2 Total 25 22 - 32 mmol/L 03/14/2023 16:50 [facility] Anion Gap 14 5 - 14 mmol/L 03/14/2023 16:50 [facility] Glucose 45(LL) 70 - 99 mg/dl 03/14/2023 16:50 [facility] Calcium 9.9 8.5 - 10.5 mg/dL 03/14/2023 16:50 [facility] BUN 11 10 - 26 mg/dL 03/14/2023 16:50 [facility] Creatinine 0.99 0.52 - 1.04 mg/dL 03/14/2023 16:50 [facility] eGFR 75 >60 mL/min/1.73 m2 03/14/2023 16:50 [facility] Blood VENOUS BLOOD / Unknown Venipuncture / Unknown 03/14/2023 15:19 EDT 03/14/2023 15:19 EDT us Carrington Calderon MD CHEMISTRY & BLOOD G ORDERABLES Final Result [facility] [address] [place] [address] documented in this encounter Visit Diagnoses Diagnosis Type 2 diabetes mellitus with diabetic polyneuropathy, with long-term current use of insulin ([facility])- Primary documented in this encounter Care Teams Merchandising Stock Associate Relationship Specialty Start Date End Date Carrington Calderon MD 1 [facility] 1 [place] [address] PCP - General Internal Medicine - Primary Care 12/09/20 Abigail Díaz Head Lineman 04/21/23 01/03/24 Carmelo Hendrickson Coordinator 12/01/23 Abigail Díaz Head Lineman 01/04/24 documented as of this encounter
--- OUTSIDE RECORDS SUMMARY | 2024-06-03 09:03 | XMS_ITS | Encounter Summary ---
Author Organization [facility] Address [address] [place] [address] Care Team Providers Care Bed Laborer Name Role Phone Carrington Calderon MD [...] Expiration Date V isits Requested Visits Authorized [id number] Closed Specialty Services Required 11/17/2022 1 1 Question Answer Reason for Request: bilateral knee and low back pain [facility] [place] [facility] [place] Reason for Visit * Reason Comments Annual Exam Encounter Details Date Type Department Care Team (Late st Contact Info) Description 11/17/2022 10:30 EDT Office Visit [facility] Adult Primary Care - [place] [address] [place], [place] [address] Carrington Calderon MD 1 [facility] Level 1 [place] [phone] Visit for preventive health examination (Primary Dx); [...] of Assessment Author No 10/02/2020 23:50 EDT [place], Krist in, RN * Because of a [...] current use of insulin ([facility]) Inject 40 Units into [...] type 2 diabetes mellitus ([facility]) Take 1 Capsule by mouth every morning AND 3 Capsules at bedtime. 360 Capsule 4 11/17/2022 4 SITagliptin phosphate (JANUVIA) 100 mg tabletIndications:Ty pe 2 diabetes mellitus with diabetic polyneuropathy, with long-term current use of insulin ([facility]) Take 1 Tablet by mouth daily. [...] current use of insulin ([facility]) ([facility]): Empagliflozin was stopped recently in the setting [...] HEMOGLOBIN A1C - THYROID CASCADE - URINE [id number]-[id number] RATIO (ACR) Gastroparesis: Refilled omeprazole and ondansetron. - omeprazole (PRILOSEC) 20 mg capsule - ondansetron (ZOFRAN-ODT) 4 mg disintegrating tablet Diabetic polyneuropathy associated with type 2 diabetes mellitus ([facility]) ([facility]): Continue gabapentin. She is comfortable with this [...] minutes today in chart review, care coordination, [id number] time with the patient independent of preventive care. Return for 1 month, diabetes and mood, 3 months, diabetes and mood , vid or FTF OK, same day ok. Patient education was direct. Barriers were assessed and addressed as needed. Alejandrina Douglas is a 37 y.o. female presenting with Annual Exam HPI Last visit with me was in January of last year via [employer]. NicoDerm patch was prescribed to assist with [...] current use of insulin ([facility]) Gastroparesis Diabetic polyneuropathy associated with type 2 diabetes mellitus ([facility]) Chronic low back pain, [...] current use of insulin ([facility]) Inject 40 Units into [...] type 2 diabetes mellitus ([facility]) TAKE 1 CAPSULE BY [...] 11/17/2022 documented in this encounter Care Teams Bed Laborer Relationship Specialty Start Date End Date Carrington Calderon MD 1 [facility] Level [address] [place] [phone] PCP - General Internal Medicine - Primary Care 7/6/21 documented as of this encounter
--- OUTSIDE RECORDS SUMMARY | 2024-06-03 09:03 | XMS_ITS | Encounter Summary ---
Author Organization [facility] Address [address] [place] [address] Care Team Providers Care Transplant Nurse Name Role Phone Carrington Calderon MD Primary Care Provi anders Reason for Visit * Reason Comments Emesis Reports multiple day s of vomiting. Hx gastroenteritis with similar presentations. Endorses dizziness. Lost consciousness in triage. VSS. Reports pain everywhere. Encounter Details Date Type Department Care Team (Late st Contact Info) Description 12/13/2022 17:42 EDT - 12/13/2022 21:40 EDT Emergency [facility] Emergency Department - [address] [phone] Brijesh Esposito MD [address] [facility], Level 1 [place] [address] Non-intractable vomiting with nausea (Primary [...] use of insulin ([facility]) One Touch Verio Flex meter. 1 [...] associated with type 2 diabetes mellitus ([facility]) Take 1 Capsule by mouth every morning AND 3 Capsules at bedtime. 360 Capsule 4 3 06/27/19 24 insulin glargine (LANTUS SOLOSTAR/SEMGLEE) 100 unit/mL (3 mL) injection penIndications:Type 2 diabetes mellitus with diabetic polyneuropathy, with long-term current use of insulin ([facility]) Inject 40 Units into the skin at bedtime. 36 mL 4 3 06/27/19 24 insulin lispro (HUMALOG KWIKPEN INSULIN) 100 unit/mL injectable penIndications:Type 2 diabetes mellitus with diabetic polyneuropathy, with long-term current use of insulin ([facility]) Inject 8-14 Units into the skin 3 times daily with meals. 15 mL 3 3 04/04/20 23 insulin pen needles 31G x 5/16Indications:Ty pe 2 diabetes mellitus with hyperglycemia, with long-term current use of insulin ([facility]) Use 1 pen needle as directed [...] with long-term current use of insulin ([facility]) Take 1 Tablet by mouth daily. 90 [...] Destination Comment s Home or Self Snf documented in this [...] EDT) 12/20/2022 6:15 EDT us Scan 2 Carton Forming Machine Adjuster PROCEDURE/MINOR SURGICAL OR DERABLES Final Result * ECG REPORT - SCANNED (12/20/2022 6:15 EDT) 12/20/2022 6:15 EDT us Scan 2 Carton Forming Machine Adjuster PROCEDURE/MINOR SURGICAL OR DERABLES Final Result * POCT TEST, CLINITEK (12/13/2022 20:26 EDT) UPT Result Negative Negative 12/13/2022 20:32 EDT [facility] HN LAB COMMENT (CLINITEK, UPT) Test performed at Emergency Department 12/13/2022 20:32 EDT [facility] Comment:False negative resul ts may occur in women who are beyond 5-8 weeks gestation. Diagnosis of should be based on a correlation of test results with typical clinical signs and symptoms. Urine URINE SPECIMEN COLLECTION, CLEAN CATCH / Unknown 12/13/2022 20:26 EDT 12/13/2022 20:32 EDT us Fran Bush MD POINT OF CARE TEST ORDERABLES F inal Result [facility] [address] [place] [id number] * (ABNORMAL) POCT URINE DIPSTICK, CLINITEK (12/13/2022 20:24 EDT) Color, UA Yellow Yellow 12/13/2022 20:26 EDT [facility] Clarity, UA Clear Clear 12/13/2022 20:26 EDT [facility] Glucose, UA Negative Negative mg/dL 12/13/2022 20:26 T [facility] Bilirubin, UA Negative Negative 12/13/2022 20:26 T [facility] Ketones, UA 3+(AA) Negative 12/13/2022 20:26 EDT [facility] Specific [place], Urine 1.020 1.001 - 1.035 12/13/2022 20:26 EDT [facility] Blood, UA 3+(A) Negative 12/13/2022 20:26 EDT [facility] pH, UA 7.0 4.6 - 8.0 12/13/2022 20:26 EDT [facility] Protein, UA 1+(A) Negative 12/13/2022 20:26 EDT [facility] Urobilinogen, UA 0.2 0.2 - 1.0 mg/dL 12/13/2022 20:26 EDT [facility] Nitrite, UA Negative Negative 12/13/2022 20:26 EDT [facility] Leuk Esterase Trace(A) Negative 12/13/2022 20:26 EDT [facility] HN LAB COMMENT (CLINITEK, UR) Test performed at Emergency Department 12/13/2022 20:26 EDT [facility] Urine URINE SPECIMEN COLLECTION, CLEAN CATCH / Unknown 12/13/2022 20:24 EDT 12/13/2022 20:26 EDT us Fran Bush MD POINT OF CARE TEST ORDERABLES F inal Result Performing Organization Address City/[facility]/ZIP Co de Phone Number [facility] [address] [place] [address] * POCT CSN BARCODE URINE DIPSTICK (12/13/2022 20:20 EDT) Urine URINE SPECIMEN COLLECTION, CLEAN CATCH / Unknown Urine Collect / Unknown 12/13/2022 20:20 EDT 12/13/2022 20:20 EDT us Fran Bush MD LAB INFO SERVICE AND SUPPORT & PHONE RESULT Final Result Performing Organization Address [facility]/ZIP Co de Phone Number [facility] [address] [place] [address] * POCT CSN BARCODE URINE PREG TEST (12/13/2022 20:20 EDT) Urine URINE SPECIMEN COLLECTION, CLEAN CATCH / Unknown Urine Collect / Unknown 12/13/2022 20:20 EDT 12/13/2022 20:20 EDT us Fran Bush MD LAB INFO SERVICE AND SUPPORT & PHONE RESULT Final Result [facility] [address] [place] [address] * EKG 12-LEAD (12/13/2022 18:09 EDT) 12/13/2022 18:0 9 EDT Narrative [facility] - 12/17/2022 9:43 EDT ?[facility] Emergency ? Test Date: ?2022-12-13 Pat Name: ? CRISTY LUO ?Department: ?? ED ? Room: ? AC17 Gender: ? Female ? Bakery Chef: ?? [id number] : ?1985 ? Requested By: CATE COLEY Order Number: [id number] ? Reading MD: ?? CINDY CLAUDIO MD ? Measurements Intervals ?[place] ? Rate: ? 85 ? P: ?57 HI: ? 144 ?QRS: ?5 QRSD: ? 97 [...] Pat Name: CRISTY LUO Department: ED Room: [facility] Gender: Female Bakery Chef: [id number] : 1985 Requested By: CATE COLEY Order Number: [id number] Reading MD: CINDY SNYDER MD Measurements Intervals [place] Rate: 85 P: 57 HI: 144 QRS: 5 QRSD: 97 T: -1 [...] MD CARDIAC ECG ORDERABLES Final Res ult [facility] * (ABNORMAL) COMPLETE BLOOD COUNT AND DIFFERENTIAL (12/13/2022 18:04 EDT) WBC 17.27(H) 4.00 - 12.40 K/cmm 12/13/2022 18:17 [facility] RBC 4.72 3.86 - 5.04 M/cmm 12/13/2022 18:17 [facility] Hemoglobin 14.9 11.6 - 15.2 g/dL 12/13/2022 18:17 [facility] HCT 41.3 34.9 - 44.4 % 12/13/2022 18:17 [facility] MCV 88 81 - 98 fL 12/13/2022 18:17 [facility] MCH 31.6 26.7 - 33.3 pg 12/13/2022 18:17 [facility] MCHC 36.1(H) 32.1 - 35.9 g/dL 12/13/2022 18:17 [facility] RDW-CV 13.0 <14.7 % 12/13/2022 18:17 [facility] RDW-SD 41.4 <50.4 fl 12/13/2022 18:17 [facility] PLT 434(H) 141 - 377 K/cmm 12/13/2022 18:17 [facility] MPV 9.3(L) 9.5 - 12.7 fL 12/13/2022 18:17 [facility] % Neutrophils 65.9 % 12/13/2022 18:17 [facility] % Lymphocytes 25.1 % 12/13/2022 18:17 [facility] % Monocytes 8.2 % 12/13/2022 18:17 [facility] % Eosinophils 0.3 % 12/13/2022 18:17 [facility] % Basophils 0.3 % 12/13/2022 18:17 [facility] % Immature Grans 0.2 % 12/14/19 18:17 [facility] Absolute Neutrophils 11.39(H) 2.20 - 8.85 K/cmm 12/13/2022 18:17 [facility] Absolute Lymphocytes 4.33(H) 1.09 - 3.30 K/cmm 12/13/2022 18:17 [facility] Absolute Monocytes 1.41(H) 0.10 - 0.80 K/cmm 12/13/2022 18:17 [facility] Absolute Eosinophils 0.05 0.03 - 0.61 K/cmm 12/13/2022 18:17 [facility] ABS Basophils 0.05 0.01 - 0.11 K/cmm 12/13/2022 18:17 [facility] Absolute Immature Grans 0.04 0.00 - 0.06 K/cmm 12/13/2022 18:17 [facility] Type of Differential: Auto 12/13/2022 18:17 [facility] Blood VENOUS BLOOD / Unknown Venipuncture / Unknown 12/13/2022 18:04 EDT 12/13/2022 18:08 EDT us Fran Bush MD PACKAGES & DNA PROBE ORDERABLES Final Result [facility] [address] [place] [address] * (ABNORMAL) COMPREHENSIVE METABOLIC PANEL (CMP) (12/13/2022 18:04 EDT) Sodium 138 136 - 145 mmol/L 12/13/2022 18:27 [facility] Potassium 3.1(L) 3.5 - 5.0 mmol/L 12/13/2022 18:27 [facility] Chloride 94(L) 96 - 110 mmol/L 12/13/2022 18:27 [facility] CO2 Total 28 22 - 32 mmol/L 12/13/2022 18:27 [facility] Glucose 220(H) 70 - 99 mg/dl 12/13/2022 18:27 [facility] BUN 17 10 - 26 mg/dL 12/13/2022 18:27 [facility] Creatinine 0.43(L) 0.52 - 1.04 mg/dL 12/13/2022 18:27 [facility] eGFR 128 >60 mL/min/1.7 3m2 12/13/2022 18:27 [facility] Total Protein 7.4 6.3 - 8.2 g/dL 12/13/2022 18:27 [facility] Albumin 4.3 3.4 - 4.9 g/dL 12/13/2022 18:27 [facility] Alkaline Phosphatase 92 38 - 126 U/L 12/13/2022 18:27 [facility] AST 27 15 - 46 U/L 12/13/2022 18:27 [facility] ALT 31 <35 U/L 12/13/2022 18:27 [facility] Bilirubin, Total 0.6 <1.4 mg/dL 12/14/19 18:27 [facility] Calcium 9.8 8.5 - 10.5 mg/dL 12/13/2022 18:27 [facility] Albumin/Globulin Ratio 1.4 1.0 - 2.5 g/dL 12/13/2022 18:27 [facility] Anion Gap 16(H) 5 - 14 mmol/L 12/13/2022 18:27 [facility] Blood VENOUS BLOOD / Unknown Venipuncture / Unknown 12/13/2022 18:04 EDT 12/13/2022 18:08 EDT us Fran Bush MD CHEMISTRY & BLOOD GAS ORDERABLE S Final Result [facility] [address] [place] [address] * (ABNORMAL) POCT GLUCOSE, INTERFACED (12/13/2022 18:01 EDT) Glucose, POC 223(H) 70 - 100 mg/dL 12/13/2022 18:03 EDT [facility] HN LAB POC COMMENT (GLUCOSE) Test Performed by Nursing Services 12/13/2022 18:03 EDT [facility] Blood CAPILLARY BLOOD / Unknown 12/13/2022 18:01 EDT 12/13/2022 18:03 EDT us Provider Unknown POINT OF CARE TEST ORDERABLE S Final Result Performing Organization Address City/State/[facility] Co de Phone Number [facility] [address] [place] [address] documented in this encounter Visit Diagnoses Diagnosis [...] 12/13/2022 documented in this encounter Care Teams Transplant Nurse Relationship Specialty Start Date End Date Carrington Calderon MD 1 [facility] Level 1 [place] [phone] PCP - General Internal Medicine - Primary Care 12/09/20 documented as of this encounter
--- OUTSIDE RECORDS SUMMARY | 2024-06-03 09:04 | XMS_ITS | Encounter Summary ---
Author Organization [facility] Address [address] [place] [address] Care Team Providers Care Inspector Wire Rope Name Role Phone Carrington Calderon MD Primary Care Provi anders Reason for Visit * Reason Onset Date Comments No Show 09/28/2021 Encounter Details Date Type Department Care Team (Late st Contact Info) Description 09/28/2021 Telephone [facility] Adult Primary Care [address] [phone] Carrington Calderon MD 1 [facility] Level 1 [place] [address] No Show Social History Tobacco [...] filedocumented in this encounter Care Teams Inspector Wire Rope Relationship Specialty Start Date End Date Carrington Calderon MD 1 [facility] 1 [place] [address] PCP - General Internal Medicine - Primary Care 12/09/20 documented as of this encounter
--- OUTSIDE RECORDS SUMMARY | 2024-06-03 09:04 | XMS_ITS | Encounter Summary ---
Author Organization [facility] Address [address] [place] [address] Care Team Providers Care Health Services Rn Name Role Phone Carrington Calderon MD Primary Care Provi anders Reason for Visit * Reason Comments Med Change Request Encounter Details Date Type Department Care Team (Late st Contact Info) Description [facility] [address] [place], [place] [phone] Nimisha Clifton, GUSTAVO 1 [facility] Level 1 [place] [address] Med Change Request Social History [...] FLEXPEN) 100 unit/mL (3 mL) injectable pen [[id number]] ?? Order Details Dose: 12 Units Route: [...] use of insulin ([facility])- Primary documented in this encounter Care Teams Health Services Rn Relationship Specialty Start Date End Date Carrington Calderon MD 1 [facility] 1 [place] [address] PCP - General Internal Medicine - Primary Care 12/09/20 documented as of this encounter
--- OUTSIDE RECORDS SUMMARY | 2024-06-03 09:04 | XMS_ITS | Encounter Summary ---
Author Organization [facility] Address [address] [place] [address] Care Team Providers Care Rigging Loft Repairer Name Role Phone Carrington Calderon MD Primary Care Provi anders Reason for Visit * Reason Comments Pre-op Exam Toe amputation Encounter Details Date Type Department Care Team (Late st Contact Info) Description 05/20/2022 13:45 EST Office Visit [facility] Adult Primary Care - [place] 1 [place], [place] [phone] Rachel Stein PA-C 1 [facility] Level 1 [place] [address] Type 2 diabetes mellitus with diabetic polyneuropathy, with long-term current use of insulin ([facility]) (Primary Dx); Preop examination Social [...] Care Everywhere. * Surgery Prep: General Info ([facility]) documented in this encounter Progress Notes * Rachel Stein PA-C - 05/20/2022 2916 EST Subjective: Cristy Luo is a 37 y.o. female who presents to the office today for a preoperative consultation at the request of Dr. Ester Gabriel, who will perform a L third toe [facility] [place]. Current Complaints: Failure of IV abx [place] SURGEON: Dr. Prudence Gabriel PROCEDURE: toe amputation [phone] Office name: [facility] Prior h/o of anesthetic complications: [...] ??? Diabetes ([facility]) A1c 10.3 on 11/28/2019 - poorly controlled [...] 09/04/201502/18, 08/19. Followed by Dr. López/Affiliates in [facility] Family History Problem Relation Age of Onset [...] 0 ??? blood glucose test strips Brand: iGo Cristo, use as directed if Freestyle Vignesh [...] daily. 400 Each 2 ??? lancets Brand: [employer], use as directed if Freestyle Vignesh censor [...] of insulin ([facility]) ([facility]) 2. Preop examination No contraindications to planned [...] polyneuropathy, with long-term current use of insulin ([facility]) Preop examination documented in this encounter Results * ECG REPORT - SCANNED (05/21/2022 11:24 EST) 05/21/2022 11:2 4 EST us Scan 2 Injector Assembler PROCEDURE/MINOR SURGICAL OR DERABLES Final Result * ECG REPORT - SCANNED (05/21/2022 11:24 EST) 05/21/2022 11:2 4 EST us Scan 2 Injector Assembler PROCEDURE/MINOR SURGICAL OR DERABLES Final Result * EK 12-LEAD (05/20/2022 14:39 EST) 05/20/2022 14:3 9 EST Narrative [facility] EK - 05/20/2022 14:56 EST ? PC Site ? Test Date: ?2022-05-20 Pat Name: ? CRISTY LUO ?Department: ?? [facility] ? Room: ? Gender: ? Female ? Apprenticeship Representative: ?? [id number] : ?1985 ? Requested By: GARRISON KIRBY Order Number: [id number] ? Reading MD: ?? Rachel WOLFF C ? Measurements Intervals ?[place] ? Rate: ? 114 ?P: ?57 NH: ? 141 ?QRS: ?17 QRSD: ? 88 [...] Date: 2022-05-20 Pat Name: CRISTY LUO Department: [facility] Room: Gender: Female Apprenticeship Representative: [id number] : 1985 Requested By: GARRISON KIRBY Order Number: [id number] Sammie MD: Rachel Colon Measurements Intervals [place] Rate: 114 P: 57 NH: 141 QRS: 17 QRSD: 88 T: 28 [...] ECG ORDERABLES Fin al Result [facility] EKG documented in this encounter Visit Diagnoses Diagnosis Type 2 diabetes mellitus with diabetic polyneuropathy, with long-term current use of insulin ([facility])- Primary Preop examination Preoperative examination, [...] polyneuropathy, with long-term current use of insulin ([facility]) Inject 1 Kit into the skin every 14 days. Patient Stopped Taking 01/29/2022 05/21/2022 flash glucose sensor (FREESTYLE VIGNESH 2 SENSOR) kit 1 Device by misc (non-drug; combo route) route continuous. Patient Stopped Taking 03/15/2022 05/21/2022 TENS unit and electrodes combo pack 1 Each by misc (non-drug; combo route) route daily. Patient Stopped Taking 08/01/2020 05/21/2022 documented as of this encounter Care Teams Rigging Loft Repairer Relationship Specialty Start Date End Date Carrington Calderon MD 1 [facility] 1 [place] [phone] PCP - General Internal Medicine - Primary Care 12/09/20 documented as of this encounter
--- OUTSIDE RECORDS SUMMARY | 2024-06-03 09:04 | XMS_ITS | Encounter Summary ---
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 PLAN: pool manager reviewed current mental health resources with Stella including local counseling options within their insurance network; online counseling platforms; online therapist directories; self-help resources; support groups; and local and national mental health crisis information. AMRITA ASENCIO 01/13/2022 15:38 documented in this encounter Plan of Treatment Not on file documented as of this encounter Visit Diagnoses Not on filedocumented in this encounter Care Teams Violin Restorer Relationship Specialty Start Date End Date Carrington Calderon MD 1 [facility] Level 1 [place] [phone] PCP - General Internal Medicine - Primary Care 12/09/20 documented as of this encounter
--- OUTSIDE RECORDS SUMMARY | 2024-06-03 09:04 | XMS_ITS | Encounter Summary ---
Author Organization [facility] Address [address] [place] [address] Care Team Providers Care Yacht Master Name Role Phone Carrington Calderon MD Primary Care Provi anders Reason for Visit * Reason Comments Medication Management Follow-up Encounter Details Date Type Department Care Team (Late st Contact Info) Description 01/29/2022 11:00 EDT Telemedicine [facility] Adult Primary Care - [address] [phone] Carrington Calderon MD 1 [facility] Level 1 [place] [phone] Gastroparesis (Primary Dx); Tobacco use; Type 2 diabetes mellitus with diabetic polyneuropathy, with long-term current use of insulin ([facility]) ([facility] [...] insulin ([facility]) ([facility]): Diabetes remains uncontrolled per her most recent A1C of 9.7. According to her description, I am concerned that an increase in her Lantus dose could lead to dangerous hypoglycemia. I asked that she post her freestyle mitul data on [employer] for my review. She states that she [...] system when she attempted to go at [facility]. I have asked my staff to follow-up [...] symptoms. She was seen in September in [facility] emergency department for diabetic foot infection. She [...] was infected. She was referred to a crane operator up in the [facility] and [...] polyneuropathy, with [facility]-term [facility] Chronic midline low back pain without [...] documented as of this encounter Care Teams Yacht Master Relationship Specialty Start Date End Date Carrington Calderon MD 1 [facility] 1 [place] [address] PCP - General Internal Medicine - Primary Care 12/09/20 documented as of this encounter
--- OUTSIDE RECORDS SUMMARY | 2024-06-03 09:04 | XMS_ITS | Encounter Summary ---
Author Organization [facility] Address [address] [place] [address] Care Team Providers Care Ase Master Mechanic Name Role Phone Carrington Calderon MD Primary Care Provi anders Abigail Díaz Unavailable Carmelo Hendrickson Unavailable Unavailable Abigail Díaz Unavailable Reason for Visit * Reason Onset Date Comments Appointment Related 03/30/2022 Encounter Details Date Type Department Care Team (Late st Contact Info) Description 03/30/2022 Telephone [facility] Endocrinology - [address] [address] Lizette Veloz RPH Appointment Related [...] 1317 EDT ----- Message from Lizette Veloz [facility] sent at 03/16/2022 14:47 EDT ----- [...] on filedocumented in this encounter Care Teams Ase Master Mechanic Relationship Specialty Start Date End Date Crarington Calderon MD 1 [facility] 1 [place] [phone] PCP - General Internal Medicine - Primary Care 12/09/20 Abigail Díaz Agency Sales Management Assistant 04/21/23 01/03/24 Carmelo Hendrickson Coordinator 12/01/23 Abigail Díaz Agency Sales Management Assistant 01/04/24 documented as of this encounter
--- OUTSIDE RECORDS SUMMARY | 2024-06-03 09:04 | XMS_ITS | Encounter Summary ---
Author Organization [facility] Address [address] [place] [address] Care Team Providers Care Computer Systems Engineer Name Role Phone Carrignton Calderon MD Primary Care Provi anders Reason for Visit * Reason Comments Medications Refill Encounter Details Date Type Department Care Team (Late st Contact Info) Description 02/28/2022 Refill [facility] Adult Primary Care [facility] 1 [place], [place] [phone] Kylah Weiner MD 1 [facility] Level 1 [place] [address] Medications Refill Social History Tobacco [...] 0852 EDT Medication(s) Requested: omeprazole Preferred Pharmacy: [facility] Is patient out of medication? Unknown [...] as of this encounter Care Teams Computer Systems Engineer Relationship Specialty Start Date End Date Carrington Calderon MD 1 [facility] Level [address] [place] [address] PCP - General Internal Medicine - Primary Care 12/09/20 documented as of this encounter
--- OUTSIDE RECORDS SUMMARY | 2024-06-03 09:04 | XMS_ITS | Encounter Summary ---
Author Organization [facility] Address [address] [place] [address] Care Team Providers Care Manufacturing Assistant Name Role Phone Carrington Calderon MD Primary Care Provi anders Abigail Díaz Unavailable [phone] Carmelo Hendrickson Unavailable Unavailable Abigail Díaz Unavailable Encounter Details Date Type Department Care Team (Late st Contact Info) Description 01/26/2022 Orders Only [facility] Adult Primary Care - [address] [phone] Carrington Calderon MD 1 [facility] Level 1 [place] [address] Type 2 diabetes mellitus with diabetic polyneuropathy, with long-term current use of insulin ([facility]) ([facility]) (Primary Dx) Social History Tobacco [...] polyneuropathy, with long-term current use of insulin ([facility])- Primary documented in this encounter Care Teams Manufacturing Assistant Relationship Specialty Start Date End Date Carrington Calderon MD 1 [facility] 1 [place] [phone] PCP - General Internal Medicine - Primary Care 12/09/20 Abigail Díaz Nursing Home Assistant Administrator 04/21/23 01/03/24 Carmelo Hendrickson Coordinator 12/01/23 Abigail Daíz Nursing Home Assistant Administrator 01/04/24 documented as of this encounter
--- OUTSIDE RECORDS SUMMARY | 2024-06-03 09:04 | XMS_ITS | Encounter Summary ---
Author Organization [facility] Address [address] [place] [address] Care Team Providers Care Nuclear Plant Construction Worker Name Role Phone Carrington Calderon MD Primary Care Provi anders Reason for Visit * Reason Comments Diabetes * Consult (See Order Priority) - Order Cancelled Specialty Diagnoses / Procedures Referred By Kit goode Referred To Contact Endocrinology Diagnoses Type 2 diabetes mellitus with diabetic polyneuropathy, with long-term current use of insulin ([facility]) Carrington Calderon MD Phone: tel: fax: [facility] Endocr[facility]ology [address] [address] Phone: tel: fax: Referral ID Status Reason Start Date Expiration Date Visits Requested Visits Authorized [id number] Order Cancelled Specialty Services Required 01/29/2022 1 1 Encounter Details Date Type Department Care Team (Late st Contact Info) Description 03/15/2022 8:40 EDT Telemedicine [facility] Endocrinology [address] [address] Eryn Mims DO [address] [place] [address] [address] [place] [address] Type 2 diabetes mellitus with diabetic polyneuropathy, with long-term current use of insulin ([facility]) (Primary Dx) Social History [...] VIGNESH 2 SENSOR) kit 1 Device by [facility] (non-drug; combo route) route continuous. [...] 0 ??? blood glucose test strips Brand: You.Do Precision Cristo, use as directed if Freestyle [...] polyneuropathy, with long-term current use of insulin ([facility])- Primary documented in this encounter Discontinued Medications Medication Sig Discontinue Reason Start Date End Da te flash glucose sensor (FREESTYLE VIGNESH 2 SENSOR) kit 1 Device by [facility] (non-drug; combo route) route continuous. Reorder 10/01/2020 03/15/2022 SITagliptin (JANUVIA) 50 mg tablet Take 1 Tab by mouth daily. Reorder 09/02/2020 03/15/2022 documented as of this encounter Care Teams Nuclear Plant Construction Worker Relationship Specialty Start Date End Date Carrington Calderon MD 1 [facility] 1 [place] [address] PCP - General Internal Medicine - Primary Care 12/09/20 documented as of this encounter
--- OUTSIDE RECORDS SUMMARY | 2024-06-03 09:04 | XMS_ITS | Encounter Summary ---
Author Organization [facility] Address [address] [place] [address] Care Team Providers Care Canal Tender Name Role Phone Carrington Calderon MD Primary Care Provi anders Reason for Visit * Reason Comments Medications Refill Encounter Details Date Type Department Care Team (Late st Contact Info) Description 02/26/2022 Refill [facility] Adult Primary Care [address] [phone] Tonja Alejandro PA-C [address] [place] [address] [place] [phone] Medications Refill Social History Tobacco Use [...] Requested: METOCLOPRAMIDE HCI 10 MG Preferred Pharmacy: [facility] Is patient out of medication? Unknown Last [...] documented as of this encounter Care Teams Canal Tender Relationship Specialty Start Date End Date Carrington Calderon MD 1 [facility] Level 1 [place] [phone] PCP - General Internal Medicine - Primary Care 12/09/20 documented as of this encounter
--- OUTSIDE RECORDS SUMMARY | 2024-06-03 09:04 | XMS_ITS | Encounter Summary ---
Author Organization [facility] Address [address] [place] [address] Care Team Providers Care Hat Body Sorter Name Role Phone Carrington Calderon MD Primary Care Provi anders Reason for Referral * Medication Prior Authorization - Authorized Specialty Diagnoses / Procedures Referred By Contlesli goode Referred To Contact Diagnoses Chronic midline low back pain without sciatica Nimisha Clifton NP [address] [address] Phone: tel: fax: Referral ID Status Reason Start Date Expiration Date V isits Requested Visits Authorized [id number] Authorized 08/05/2022 09/04/2023 1 1 Reason for Visit * Reason Comments Pre-op Exam Toe amputation Encounter Details Date Type Department Care Team (Late st Contact Info) Description 09/02/2022 11:15 EDT Office Visit [facility] Adult Primary Care - [address] [address] Nimisha Clifton NP [address] [address] Osteomyelitis of left foot, unspecified [...] who presents today for preop. Surgery in [facility]. Hospitalized last week for infection tue-tue. [...] shares that she follows with endocrine in [facility], next visit in September. Believes her [...] with long-term current use of insulin ([facility]) ([facility]) ??? Gastroparesis ??? Neuropathic diabetic ulcer of foot ([facility]) ??? Tobacco use ??? Skin infection [...] has a referral for therapy. ??? Diabetes ([facility]) ([facility]) A1c 10.3 on 11/28/2019 - poorly controlled ??? Diabetes mellitus, type 2 ([facility]) ([facility]) pt check blood sugars at [...] occasionally ??? Neuropathic diabetic ulcer of foot ([facility]) 09/17/2021 ??? Obesity, unspecified ??? Osteomyelitis (HCC) (HCC-CMS) of left great toe-s/p amputation ??? Peripheral neuropathy 08/12/20- Bilateral feet-Takes Gabapentin- pt just started this med. ??? Productive cough pt currently quitting smoking- clear secretions. ??? Spontaneous miscarriage 09/04/201502/18, 08/19. [facility] Past Surgical History: Procedure Laterality Date [...] Diagnosis Osteomyelitis of left foot, unspecified type ([facility])- Primary Type 2 diabetes mellitus with diabetic polyneuropathy, with long-term current use of insulin ([facility]) Chronic midline low back pain without [...] 06/27/2023 added in this encounter Care Teams Hat Body Sorter Relationship Specialty Start Date End Date Carrington Calderon MD 1 [facility] Level 1 [place] [address] PCP - General Internal Medicine - Primary Care 12/09/20 documented as of this encounter
--- OUTSIDE RECORDS SUMMARY | 2024-06-03 09:04 | XMS_ITS | Encounter Summary ---
Author Organization [facility] Address [address] [place] [address] Care Team Providers Care Prosthetic Technician Name Role Phone Carrington Calderon MD Primary Care Provi anders Reason for Visit * Reason Onset Date Comments COVID-19 Positive Patient Outreach 02/25/2022 Encounter Details Date Type Department Care Team (Late st Contact Info) Description 02/25/2022 Telephone [facility] Adult Primary Care [address] [phone] Carrington Calderon MD [address] [phone] COVID-19 Positive Patient Outreach Social [...] Encounter - Benita Thompson RN - 02/26/2022 9036 EDT Patient tested positive for covid 19 [...] wash your hands often. Rx pended with [facility] [place] [facility] loaded. Patient lives in [place] but says that her [id number] will be in [place] this afternoon and will be able to [...] Primary documented in this encounter Care Teams Prosthetic Technician Relationship Specialty Start Date End Date Carrington Calderon MD 1 [facility] Level 1 [place] [phone] PCP - General Internal Medicine - Primary Care 12/09/20 documented as of this encounter
--- OUTSIDE RECORDS SUMMARY | 2024-06-03 09:04 | XMS_ITS | Encounter Summary ---
Author Organization [facility] Address [address] [place] [address] Care Team Providers Care Collar Setter Name Role Phone Carrington Calderon MD Primary Care Provi anders Reason for Visit * Reason Onset Date Comments Prior Auth, Medication 09/04/2022 Encounter Details Date Type Department Care Team (Late st Contact Info) Description 09/04/2022 Telephone [facility] Adult Primary Care [address] [address] Carrington Calderon MD 1 [facility] Level [address] [place] [phone] Prior Auth, Medication Social History Tobacco [...] Q54A Group name: [employer] BIN: [id number] PCN: PA has been completed via ePa Awaiting reply documented in this encounter Plan of Treatment Not on file documented as of this encounter Visit Diagnoses Not on filedocumented in this encounter Care Teams Collar Setter Relationship Specialty Start Date End Date Carrington Calderon MD 1 [facility] 1 [place] [phone] PCP - General Internal Medicine - Primary Care 12/09/20 documented as of this encounter
--- OUTSIDE RECORDS SUMMARY | 2024-06-03 09:04 | XMS_ITS | Encounter Summary ---
Author Organization [facility] Address [address] [place] [address] Care Team Providers Care Stars Coordinator Name Role Phone Carrington Calderon MD [...] Contact Info) Description 02/05/2022 Telephone [facility] - [address] [address] Scott Arzate MD [address] [place] [address], Level [address] [place] [address] Appointment Related (LVM in regards [...] on filedocumented in this encounter Care Teams Stars Coordinator Relationship Specialty Start Date End Date Carrington Calderon MD 1 [facility] 1 [place] [phone] PCP - General Internal Medicine - Primary Care 12/09/20 Abigail Díaz Inductor Tester 04/21/23 01/03/24 Carmelo Hendrickson Coordinator 12/01/23 Abigail Díaz Inductor Tester 01/04/24 documented as of this encounter
--- OUTSIDE RECORDS SUMMARY | 2024-06-03 09:04 | XMS_ITS | Encounter Summary ---
Author Organization [facility] Address [address] [place] [address] Care Team Providers Care Remote Broadcast Engineer Name Role Phone Carrington Calderon MD Primary Care Provi anders Reason for Visit * Reason Comments Other Encounter Details Date Type Department Care Team (Late st Contact Info) Description 09/13/2021 [facility] Adult Primary Care [facility] 1 [place], [place] [phone] Carrington Calderon MD 1 [facility] Level 1 [place] [address] Other Social History Tobacco Use [...] 0913 EDT traMADol (ULTRAM) 50 mg tablet [[id number]] ?? Order Details Dose, Route, Frequency: As [...] documented as of this encounter Care Teams Remote Broadcast Engineer Relationship Specialty Start Date End Date Carrington Calderon MD 1 [facility] Level 1 [place] [address] PCP - General Internal Medicine - Primary Care 12/09/20 documented as of this encounter
--- OUTSIDE RECORDS SUMMARY | 2024-06-03 09:04 | XMS_ITS | Encounter Summary ---
Author Organization [facility] Address [address] [place] [address] Care Team Providers Care Die Cutter Diamond Name Role Phone Carrington Calderon MD Primary Care Provi anders Reason for Visit * Reason Comments Skin Ulcer * Consult (Routine) - Authorization Not Required Specialty Diagnoses / Procedures Referred By Kit goode Referred To Contact Orthopedic Surgery Diagnoses Diabetic ulcer of right great toe (HCC-CMS) Katiana Adams NP [address] [facility] [place] [address] Phone: tel: Elza Navarro DPM Phone: tel: fax: Referral ID Status Reason Start Date Expiration Date Visits Requested Visits Authorized [id number] Authorization Not Required 1 1 Encounter Details Date Type Department Care Team (Late Contact Info) Description 09/17/2021 15:00 EDT Office Visit [facility] - [address] [place] [address] Fadi Barahona NP [address] [place] [address] Neuropathic diabetic ulcer of foot [...] ICD-9-CM 1. Neuropathic diabetic ulcer of foot ([facility]) E11.40 250.60 OFFLOADING SURGICAL SHOE (L3260) E11.621 250.80 L97.509 357.2 707.15 right great toe 2. Type 2 diabetes mellitus with diabetic polyneuropathy, with long-term current use of insulin ([facility]) ([facility]) E11.42 250.60 OFFLOADING SURGICAL SHOE [...] the next morning they went to the [facility] in [place], [place] where she was prescribed antibiotics. She [...] managed by Mary Zafar NP, at the [facility] but, ever since Mary [...] 2020 after an ulcer got infected. Work: [employer] Foot & Ankle Pain Assessment: Pain Orientation : Right Pain Location: Toe (GRT) Numeric Pain Level (Scale 1-10): 0 Pain in another site? : No Past medical history, medications and allergies were noted in [facility]. The patient did not fill out the intake form Patient Active Problem List Diagnosis Date Noted ??? Neuropathic diabetic ulcer of foot ([facility]) 09/17/2021 ??? Chronic midline low back pain without sciatica 11/26/2019 ??? Chronic left ear pain 09/04/2015 ??? Gastroparesis 08/10/2020 ??? Type 2 diabetes mellitus with diabetic polyneuropathy, with long-term current use of insulin ([facility]) ([facility]) 06/05/2020 ??? Family history of [...] has a referral for therapy. ??? Diabetes ([facility]) A1c 10.3 on 11/28/2019 - poorly controlled ??? Diabetes mellitus, type 2 ([facility]) pt check blood sugars at [...] 0 ??? blood glucose test strips Brand: Inspro Precision Cristo, use as directed if Freestyle [...] VIGNESH 2 SENSOR) kit 1 Device by [facility] (non- drug; combo [...] long-term current use of insulin ([facility]) ([facility]) OFFLOADING SURGICAL SHOE (L3260) Other [...] speech recognition software or keyboard data center operator techniques. Minor irregularities or keyboarding misprints [...] 22 documented in this encounter Care Teams Die Cutter Diamond Relationship Specialty Start Date End Date Carrington Calderon MD [address] [facility] 1 [place] [phone] PCP - General Internal Medicine - Primary Care 12/09/20 documented as of this encounter
--- OUTSIDE RECORDS SUMMARY | 2024-06-03 09:04 | XMS_ITS | Encounter Summary ---
Author Organization [facility] Address [address] [place] [address] Care Team Providers Care Veterinary Medical Officer Name Role Phone Carrington Calderon MD Primary Care Provi anders Reason for Visit * Reason Onset Date Comments Emesis 11/16/2021 24 hours- vomitt ing/ toe infection Encounter Details Date Type Department Care Team (Late st Contact Info) Description 11/16/2021 Telephone [facility] Adult Primary Care - [address] [phone] Carrington Calderon MD 1 [facility] Level 1 [place] [address] Emesis (24 hours- vomitting/ toe [...] going home to take her to the [facility] ED. Let him know that PCP's last OV note stated that pt should be seen in an OV if vomiting for more than 24 hours. He reports they would like a referral to the foot Dr, normally goes to [facility]. (Looks like pt missed OV.)They will [...] last seen 06/11/21. Also missed OV at [facility]. * Telephone Encounter - Olive Munguia [...] filedocumented in this encounter Care Teams Veterinary Medical Officer Relationship Specialty Start Date End Date Carrington Calderon MD 1 [facility] Level 1 [place] [address] PCP - General Internal Medicine - Primary Care 12/09/20 documented as of this encounter
--- OUTSIDE RECORDS SUMMARY | 2024-06-03 09:04 | XMS_ITS | Encounter Summary ---
Author Organization [facility] Address [address] [place] [address] Care Team Providers Care Clinic Mgr Name Role Phone Carrington Calderon MD Primary Care Provi anders Reason for Visit * Reason Onset Date Comments Prior Auth, Medication 01/29/2022 Encounter Details Date Type Department Care Team (Late st Contact Info) Description 01/29/2022 Telephone [facility] Adult Primary Care [address] [phone] Carrington Calderon MD 1 [facility] Level [address] [place] [phone] Prior Auth, Medication Social History Tobacco [...] Trujillo - 02/26/2022 1518 EDT Call to [facility] to check and see what is going on with the patients sensors at the patientis all out and needs these EDGARD. Per [facility] Azra, when this is ran it states drug therapy is not on file. OV notes and completed form have been faxed to [facility] for approval. * Telephone Encounter - [...] Free style Nissa 14 day sensor Mejia: [id number] documented in this encounter Plan of Treatment Not on file documented as of this encounter Visit Diagnoses Not on filedocumented in this encounter Care Teams Clinic Mgr Relationship Specialty Start Date End Date Carrington Calderon MD 1 [facility] 1 [place] [address] PCP - General Internal Medicine - Primary Care 12/09/20 documented as of this encounter
--- OUTSIDE RECORDS SUMMARY | 2024-06-03 09:04 | XMS_ITS | Encounter Summary ---
Author Organization [facility] Address [address] [place] [address] Care Team Providers Care Log Tumbler Name Role Phone Carrington Calderon MD Primary Care Provi anders Reason for Visit * Reason Comments Medications Refill Encounter Details Date Type Department Care Team (Late st Contact Info) Description 10/15/2022 Refill [facility] Adult Primary Care [facility] 1 [place], [place] [address] Carrington Calderon MD 1 [facility] Level 1 [place] [address] Medications Refill Social History Tobacco [...] type 2 diabetes mellitus ([facility]) TAKE 1 CAPSULE BY MOUTH IN [...] documented as of this encounter Care Teams Log Tumbler Relationship Specialty Start Date End Date Carrington Calderon MD 1 [facility] 1 [place] [phone] PCP - General Internal Medicine - Primary Care 12/09/20 documented as of this encounter
--- OUTSIDE RECORDS SUMMARY | 2024-06-03 09:04 | XMS_ITS | Encounter Summary ---
Author Organization [facility] Address [address] [place] [address] Care Team Providers Care Packing Tractor Machine Operator Name Role Phone Carrington Calderon MD Primary Care Provi anders Abigail Díaz Unavailable Carmelo Hendrickson Unavailable Unavailable Abigail Díaz Unavailable Encounter Details Date Type Department Care Team (Late st Contact Info) Description 06/01/2022 Lab Requisition [facility] - [address] [address] Ester Gabriel [address] [place] [address] Encounter for other general examination [...] explore management options, if applicable. 06/15/2022 11:18 [facility] Final Diagnosis A. 3RD TOE, LEFT FOOT, ? DISTAL? , AMPUTATION: - Skin with ulceration and gangrenous necrosis. - Bone with remodeling changes and patchy chronic inflammation. See comment. 06/15/2022 11:18 [facility] Diagnosis Comment Overall, the findings are nonspecific but could be compatible with chronic osteomyelitis in the appropriate clinical setting. The disarticulation margin is grossly unremarkable. Histologic features diagnostic of acute osteomyelitis are not seen in the jewelry sales representative sections submitted. 06/15/2022 11:18 [facility] Attestation There was significant resident/fellow involvement in the diagnostic evaluation of this case. By the signature below, the attending physician certifies that they have personally conducted a gross and/or microscopic examination of the described specimens and rendered or confirmed the above diagnosis. 06/15/2022 11:18 [facility] at 1118 Clinical History Osteomyelitis 06/15/2022 11:18 [facility] Gross Description A. Received [...] viable. The proximal margin is inked blue. Residential Youth Counselor sections are submitted following acid decalcification as follows: BLOCK SHIELDS A1- bone underlying eschar A2- proximal soft tissue margin Carrington Bravo MD 06/01/2022 15:00 06/15/2022 11:18 [facility] Resident/Cash w: Carrington Bravo MD 06/15/2022 11:18 [facility] Performing Lab [facility] 11:18 [facility] Scanned Images 06/15/2022 11:18 [facility] Tissue TRAUMATIC AMPUTATION OF UPPER LIMB / Unknown 05/28/2022 7:50 EST 06/01/2022 8:27 EST us Ester Gabriel PATHOLOGY ORDERABLES Final Resul t [facility] [address] [place] [address] documented in this encounter Visit Diagnoses Diagnosis Encounter for other general examination documented in this encounter Care Teams Packing Tractor Machine Operator Relationship Specialty Start Date End Date Carrington Calderon MD 1 [facility] 1 [place] [phone] PCP - General Internal Medicine - Primary Care 12/09/20 Abigail Díaz Dictating Machine Mechanic 04/21/23 01/03/24 Carmelo Hendrickson Coordinator 12/01/23 Abigail Díaz Dictating Machine Mechanic 01/04/24 documented as of this encounter
--- OUTSIDE RECORDS SUMMARY | 2024-06-03 09:04 | XMS_ITS | Encounter Summary ---
Author Organization [facility] Address [address] [place] [address] Care Team Providers Care Founder And Chief Executive Officer Name Role Phone Carrington Calderon MD Primary Care Provi anders Abigail Díaz Unavailable [phone] Carmelo Hendrickson Unavailable Unavailable Abigail Díaz Unavailable [phone] Encounter Details Date Type Department Care Team (Late st Contact Info) Description 09/13/2022 Lab Requisition [facility] Pathology & Laboratory Medicine - [address] [address] Ester Gabriel [address] [place] [address] Encounter for other general examination [...] explore management options, if applicable. 09/20/2022 10:01 [facility] Final Diagnosis A. TOE, LEFT 2ND, AMPUTATION: - Acute osteomyelitis. - Disarticulated joint margin negative for acute osteomyelitis. - Skin with ulceration, cellulitis and dermal fibrosis. 09/20/2022 10:01 [facility] Attestation By the signature below, the attending physician certifies that they have 1) personally conducted a gross and/or microscopic examination of the described specimen(s), and/or personally interpreted the results of laboratory testing of the described specimen(s), and 2) personally rendered or confirmed the above diagnosis. 09/20/2022 10:01 [facility] at 1001 Clinical History Osteomyelitis 09/20/2022 10:01 [facility] Gross Description A. [...] the resection margin is without gross lesions. Linter Saw Sharpener sections are submitted following acid decalcification as follows: BLOCK SHIELDS A1- perpendicular sections ulceration to include nearest skin and soft tissue margin A2- bone margin EUNICE RILEY(ASCP) 09/13/2022 13:00 09/20/2022 10:01 [facility] Performing Lab [facility] 10:01 [facility] Scanned Images 09/20/2022 10:01 [facility] Tissue TRAUMATIC AMPUTATION OF UPPER LIMB / Unknown 09/10/2022 9:17 EDT 09/13/2022 8:56 EDT Ester Gabriel PATHOLOGY ORDERABLES Final Resul t [facility] [address] [place] [address] documented in this encounter Visit Diagnoses Diagnosis Encounter for other general examination documented in this encounter Care Teams Founder And Chief Executive Officer Relationship Specialty Start Date End Date Carrington Calderon MD 1 [facility] Level 1 [place] [address] PCP - General Internal Medicine - Primary Care 12/09/20 Abigail Díaz Event Manager 04/21/23 01/03/24 Carmelo Hendrickson Coordinator 12/01/23 Abigail Díaz Event Manager 01/04/24 documented as of this encounter
--- OUTSIDE RECORDS SUMMARY | 2024-06-03 09:04 | XMS_ITS | Encounter Summary ---
Author Organization [facility] Address [address] [place] [address] Care Team Providers Care Driver Trainer Name Role Phone Carrington Calderon MD Primary Care Provi anders Reason for Visit * Reason Onset Date Comments Medications Refill 11/30/2021 Encounter Details Date Type Department Care Team (Late st Contact Info) Description 11/30/2021 Refill [facility] Adult Primary Care [address] [address] Carrington Calderon MD 1 [facility] Level 1 [place] [address] Medications Refill Social History Tobacco [...] on filedocumented in this encounter Care Teams Driver Trainer Relationship Specialty Start Date End Date Carrington Calderon MD 1 [facility] 1 [place] [address] PCP - General Internal Medicine - Primary Care 12/09/20 documented as of this encounter
--- OUTSIDE RECORDS SUMMARY | 2024-06-03 09:04 | XMS_ITS | Encounter Summary ---
Author Organization [facility] Address [address] [place] [address] Care Team Providers Care General Warehouse Worker Name Role Phone Carrington Calderon MD Primary Care Provi anders Reason for Visit * Reason Onset Date Comments Medication Problem 01/14/2022 Encounter Details Date Type Department Care Team (Late st Contact Info) Description 01/14/2022 Telephone [facility] Adult Primary Care [facility] 1 [place], [place] [address] Carrington Calderon MD 1 [facility] Level 1 [place] [address] Medication Problem Social History Tobacco [...] filedocumented in this encounter Care Teams General Warehouse Worker Relationship Specialty Start Date End Date Carrington Calderon MD 1 [facility] 1 [place] [address] PCP - General Internal Medicine - Primary Care 12/09/20 documented as of this encounter
--- OUTSIDE RECORDS SUMMARY | 2024-06-03 09:04 | XMS_ITS | Encounter Summary ---
Author Organization [facility] Address [address] [place] [address] Care Team Providers Care Bottom Scrubber Name Role Phone Carrington Calderon MD Primary Care Provi anders Reason for Visit * Reason Onset Date Comments Results 03/30/2022 Encounter Details Date Type Department Care Team (Late st Contact Info) Description 03/30/2022 Telephone [facility] Adult Primary Care [facility] 1 [place], [place] [address] Carrington Calderon MD 1 [facility] Level 1 [place] [address] Results Social History Tobacco Use [...] that her lumbar spine x-ray done at [facility] shows some mild arthritis throughout the [...] on filedocumented in this encounter Care Teams Bottom Scrubber Relationship Specialty Start Date End Date Carrington Calderon MD 1 [facility] Level 1 [place] [phone] PCP - General Internal Medicine - Primary Care 12/09/20 documented as of this encounter
--- OUTSIDE RECORDS SUMMARY | 2024-06-03 09:04 | XMS_ITS | Encounter Summary ---
Author Organization [facility] Address [address] [place] [address] Care Team Providers Care Air Marshal Name Role Phone Carrington Calderon MD Primary Care Provi anders Reason for Visit * (Routine/Next Available) - Receiving Office to Obtain Authorization Specialty Diagnoses / Procedures Referred By Kit goode Referred To Contact Procedures XR OUTSIDE IMAGES NEURO Imaging, External Referral ID Status Reason Start Date Expiration Date Visits Requested Visits Authorized [id number] Receiving Office to Obtain Authorization 2 1 1 Encounter Details Date Type Department Care Team (Latest Contact Info) Description 03/18/2022 - 03/18/2022 23:59 EDT Hospital Encounter [facility] Secondary Reads [place] Discharge Disposition: Home [...] polyneuropathy, with long-term current use of insulin ([facility]) One Touch Verio Flex meter. 1 [...] VIGNESH 2 READER) misc 1 Device by [employer] (non-drug; combo route) route continuous. 1 Each 1 05/21/20 22 flash glucose sensor (FREESTYLE VIGNESH 14 DAY SENSOR) kitIndications:Type 2 diabetes mellitus with diabetic polyneuropathy, with long-term current use of insulin ([facility]) Inject 1 Kit into the skin every 14 days. 6 Kit 3 2 05/21/20 22 flash glucose sensor (FREESTYLE VIGNESH 2 SENSOR) kit 1 Device by [facility] (non-drug; combo route) route continuous. 6 Kit 3 2 05/21/20 22 gabapentin (NEURONTIN) 300 mg capsuleIndications: Diabetic polyneuropathy associated with type 2 diabetes mellitus ([facility]) Take 300mg in the morning and 900mg [...] polyneuropathy, with long-term current use of insulin ([facility]) Inject 40 Units into the skin at bedtime for 90 days. 36 mL 4 2 11/18/19 23 insulin pen needles 31G x 16Indications:Ty pe 2 diabetes mellitus with hyperglycemia, with long-term current use of insulin ([facility]) Use 1 pen needle as directed [...] filedocumented in this encounter Care Teams Air Marshal Relationship Specialty Start Date End Date Carrington Calderon MD 1 [facility] Level 1 [place] [phone] PCP - General Internal Medicine - Primary Care 12/09/20 documented as of this encounter
--- OUTSIDE RECORDS SUMMARY | 2024-06-03 09:04 | XMS_ITS | Encounter Summary ---
Author Organization [facility] Address [address] [place] [address] Care Team Providers Care Powder Expert Name Role Phone Carrington Calderon MD Primary Care Provi anders Reason for Visit * Reason Onset Date Comments Medications Refill 01/11/2022 Encounter Details Date Type Department Care Team (Late st Contact Info) Description 01/11/2022 Refill [facility] Adult Primary Care [address] [address] Carrington Calderon MD 1 [facility] Level 1 [place] [address] Medications Refill Social History Tobacco [...] documented as of this encounter Care Teams Powder Expert Relationship Specialty Start Date End Date Carrington Calderon MD 1 [facility] 1 [place] [phone] PCP - General Internal Medicine - Primary Care 12/09/20 documented as of this encounter
--- OUTSIDE RECORDS SUMMARY | 2024-06-03 09:04 | XMS_ITS | Encounter Summary ---
Author Organization [facility] Address [address] [place] [address] Care Team Providers Care Cleaner Touch Up Worker Name Role Phone Carrington Calderon MD Primary Care Provi anders Abigail Díaz Unavailable [phone] Carmelo Hendrickson Unavailable Unavailable Abigail Díaz Unavailable [phone] Reason for Visit * Reason Onset Date Comments Appointment Related 03/17/2022 Encounter Details Date Type Department Care Team (Late st Contact Info) Description 03/17/2022 Telephone [facility] End[facility]ology - [facility] [address] [place] [address] Zulma Cross, GUSTAVO [address] [facility] [address] [place] [address] Appointment Related Social History Tobacco [...] anytime after 06/16/22 Recall Letter Sent thru [facility] Also: Left voicemail to schedule 6 month Follow Up appointment with Dr. Eryn Mims Patient is due anytime after 09/14/22 Recall Letter Sent thru [employer] Please schedule both appointments documented in this encounter Plan of Treatment Not on file documented as of this encounter Visit Diagnoses Not on filedocumented in this encounter Care Teams Cleaner Touch Up Worker Relationship Specialty Start Date End Date Carrington Calderon MD [address] [place] [address] 1 [place] [address] PCP - General Internal Medicine - Primary Care 12/09/20 Abigail Díaz Melting Operator 04/21/23 01/03/24 Carmelo Hendrickson Coordinator 12/01/23 Abigail Díaz Melting Operator 01/04/24 documented as of this encounter
--- OUTSIDE RECORDS SUMMARY | 2024-06-03 09:04 | XMS_ITS | Encounter Summary ---
Author Organization [facility] Address [address] [place] [address] Care Team Providers Care Specimen Boss Name Role Phone Carrington Calderon MD Primary Care Provi anders Reason for Visit * Reason Onset Date Comments Medications Refill 10/30/2021 tramadol / lo razepam Encounter Details Date Type Department Care Team (Late st Contact Info) Description 10/30/2021 Refill [facility] Adult Primary Care - [address] [phone] Carrington Calderon MD 1 [facility] Level [address] [place] [address] Medications Refill (tramadol / lorazepam) [...] documented as of this encounter Care Teams Specimen Boss Relationship Specialty Start Date End Date Carrington Calderon MD 1 [facility] 1 [place] [address] PCP - General Internal Medicine - Primary Care 12/09/20 documented as of this encounter
--- OUTSIDE RECORDS SUMMARY | 2024-06-03 09:04 | XMS_ITS | Encounter Summary ---
Author Organization [facility] Address [address] [place] [address] Care Team Providers Care Design Draftsman Name Role Phone Carrington Calderon MD Primary Care Provi anders Reason for Visit * Reason Comments Nutrition Counseling * Consult (See Order Priority) - Order Cancelled Specialty Diagnoses / Procedures Referred By Contact Referred To Contact Nutrition / Gastroenterology and Hepatology Diagnoses Gastroparesis Scott Arzate MD Phone: tel:[phone] fax:[phone] [facility] Gastroenterology [address] [address] Phone: tel: fax: Referral ID Status Reason Start Date Expiration Date Visits Requested Visits Authorized [id number] Order Cancelled Specialty Services Required 10/09/2021 1 1 Encounter Details Date Type Department Care Team (Late st Contact Info) Description 10/14/2021 11:00 EDT Nutrition [facility] Gastroenterology [address] [address] Savita Curtis, LUCILLE [address] [place] [phone] Gastroparesis; Type 2 diabetes mellitus with diabetic [...] (insulin requiring), and gastroparesis. Recently moved to [place], [place]. Reports frequent nausea, early satiety. Has [...] referral for therapy. ??? Diabetes ([facility]) A1c 10.3 on 11/28/2019 - poorly [...] My Chart, and web resources for gastroparesis ([employer]) Stella has recently moved to [place], and is in the process of establishing a PCP and net technical architect. Encouraged obtaining new meter for closer monitoring of blood glucose levels. Encouraged activity/movement on a daily basis, especially after eating. PLAN: Nutrition Recommendations and Goals: 1. Diet for gastroparesis- lower fat, modified textures to soft/blended, modified high fiber foods 2. Continue to follow diet guidelines for DM, re-establish care w/ net technical architect, perhaps at Exercise/Activity Recommendations: exercise/activity as tolerated Educational materials provided: Diet for Gastroparesis Method: Handout and Verbal Taught to: Patient Barriers: None Outcomes: verbalized understanding I spent a total of 45 minutes with Cristy Luo today and 40 minutes of that time was spent incounseling and coordination of care as described in the progress note. Savita Curtis RD [phone] documented in this encounter Plan of Treatment Not on file documented as of this encounter Visit Diagnoses Diagnosis Gastroparesis Type 2 diabetes mellitus with diabetic polyneuropathy, with long-term current use of insulin ([facility]) documented in this encounter Care Teams Design Draftsman Relationship Specialty Start Date End Date Carrington Calderon MD 1 [facility] Level 1 [place] [phone] PCP - General Internal Medicine - Primary Care 12/09/20 documented as of this encounter
--- OUTSIDE RECORDS SUMMARY | 2024-06-03 09:04 | XMS_ITS | Encounter Summary ---
Author Organization [facility] Address [address] [place] [address] Care Team Providers Care Mineral Industry Teacher Name Role Phone Carrington Calderon MD Primary Care Provi anders Encounter Details Date Type Department Care Team (Late st Contact Info) Description 12/04/2021 Orders Only [facility] Adult Primary Care - [place] 1 [place], [place] [address] Carrington Calderon MD 1 [facility] Level 1 [place] [address] Social History Tobacco Use Types [...] documented as of this encounter Care Teams Mineral Industry Teacher Relationship Specialty Start Date End Date Carrington Calderon MD 1 [facility] Level 1 [place] [address] PCP - General Internal Medicine - Primary Care 12/09/20 documented as of this encounter
--- OUTSIDE RECORDS SUMMARY | 2024-06-03 09:04 | XMS_ITS | Encounter Summary ---
Author Organization [facility] Address [address] [place] [address] Care Team Providers Care Client Consultant Name Role Phone Carrington Calderon MD Primary Care Provi anders Reason for Visit * Reason Onset Date Comments No Show 04/02/2022 Encounter Details Date Type Department Care Team (Late st Contact Info) Description 04/02/2022 Telephone [facility] Adult Primary Care [facility] 1 [place], [place] [address] Carrington Calderon MD 1 [facility] Level 1 [place] [address] No Show Social History Tobacco [...] Telephone Encounter - Kamini Raya - 04/02/2022 0942 EDT 04/01/2022 Patient was a no show for a f/u for chronic pain/DM with Dr. Calderon. Called patient, but VM was full and could not leave a message. Also sent a [employer] message to contact the office to reschedule missed appt if she would like. 1st no show letter sent. Patient has had 2 missed no show appointments in last 12 months. 04/01/2022, 12/21/2021 and 09/28/2021. documented in this encounter Plan of Treatment Not on file documented as of this encounter Visit Diagnoses Not on filedocumented in this encounter Care Teams Client Consultant Relationship Specialty Start Date End Date Carrington Calderon MD 1 [facility] Level 1 [place] [address] PCP - General Internal Medicine - Primary Care 12/09/20 documented as of this encounter
--- OUTSIDE RECORDS SUMMARY | 2024-06-03 09:04 | XMS_ITS | Encounter Summary ---
Author Organization [facility] Address [address] [place] [address] Care Team Providers Care Payroll Coordinator Name Role Phone Carrington Calderon MD Primary Care Provi anders Reason for Visit * Reason Comments New Patient Visit Gastroparesis * Consult (Routine/Next Available) - Order Cancelled Specialty Diagnoses / Procedures Referred By Contact Referred To Contact Gastroenterology and Hepatology Diagnoses Gastroparesis Carrington Calderon MD Phone: tel:[phone] fax:[phone] [facility] Gastroenterology [address] [address] Phone: tel: fax: Referral ID Status Reason Start Date Expiration Date Visits Requested Visits Authorized [id number] Order Cancelled Specialty Services Required 06/11/2021 1 1 Encounter Details Date Type Department Care Team (Late st Contact Info) Description 10/09/2021 11:20 EDT Office Visit [facility] Gastroenterology [address] [phone] Scott Arzate MD [address] [place] [address], [facility] 5 [place] [address] Gastroparesis (Primary Dx) Social History [...] Primary documented in this encounter Care Teams Payroll Coordinator Relationship Specialty Start Date End Date Carrington Calderon MD 1 [facility] Level 1 [place] [address] PCP - General Internal Medicine - Primary Care 12/09/20 documented as of this encounter
--- OUTSIDE RECORDS SUMMARY | 2024-06-03 09:04 | XMS_ITS | Encounter Summary ---
Author Organization [facility] Address [address] [place] [address] Care Team Providers Care Utility Tender Carding Name Role Phone Carrington Calderon MD Primary Care Provi anders Reason for Visit * (Routine/Next Available) - Receiving Office to Obtain Authorization Specialty Diagnoses / Procedures Referred By Kit goode Referred To Contact Procedures XR OUTSIDE IMAGES MSK Unknown, Provider, Referral ID Status Reason Start Date Expiration Date Visits Requested Visits Authorized [id number] Receiving Office to Obtain Authorization 09/12/2021 1 1 Encounter Details Date Type Department Care Team (Latest Contact Info) Description 09/12/2021 16:35 EDT - 09/12/2021 23:[address] [facility] Secondary Reads [place] Discharge Disposition: [...] diabetes mellitus ([facility]) Take 300mg in the morning and [...] long-term current use of insulin ([facility]) Use 1 pen needle as directed 4 [...] filedocumented in this encounter Care Teams Utility Tender Carding Relationship Specialty Start Date End Date Carrington Calderon MD 1 [facility] 1 [place] [phone] PCP - General Internal Medicine - Primary Care 12/09/20 documented as of this encounter
--- OUTSIDE RECORDS SUMMARY | 2024-06-03 09:05 | XMS_ITS | Encounter Summary ---
Author Organization [facility] Address [address] [place] [address] Care Team Providers Care Head Custodian Name Role Phone Unavailable Primary Care Provider Unavailabl e Reason for Visit * Reason Onset Date Comments Back Pain 10/29/2020 Encounter Details Date Type Department Care Team (Late st Contact Info) Description 10/29/2020 Telephone [facility] Adult Primary Care - [address] [address] Tonja Alejandro PA-C [facility] [address] [place] [address] Back Pain Social History Tobacco [...]
--- OUTSIDE RECORDS SUMMARY | 2024-06-03 09:05 | XMS_ITS | Encounter Summary ---
Author Organization [facility] Address [address] [place] [address] Care Team Providers Care Master Fire Control Technician Name Role Phone Carrington Calderon MD Primary Care Provi anders Reason for Visit * Reason Onset Date Comments Heartburn 01/26/2021 Encounter Details Date Type Department Care Team (Late st Contact Info) Description 01/26/2021 Telephone [facility] Adult Primary Care - [place] 1 [place], [place] [address] Carrington Calderon MD 1 [facility] Level 1 [place] [address] Heartburn Social History Tobacco Use [...] already taking any heartburn medications? Could do [id number] daily if not. * Telephone Encounter - [...] filedocumented in this encounter Care Teams Master Fire Control Technician Relationship Specialty Start Date End Date Carrington Calderon MD 1 [facility] 1 [place] [address] PCP - General Internal Medicine - Primary Care 12/09/20 documented as of this encounter
--- OUTSIDE RECORDS SUMMARY | 2024-06-03 09:05 | XMS_ITS | Encounter Summary ---
Author Organization [facility] Address [address] [place] [address] Care Team Providers Care Road Hogger Operator Name Role Phone Unavailable Primary Care Provider Unavailabl e Reason for Visit * Reason Onset Date Comments No Show 11/24/2020 Encounter Details Date Type Department Care Team (Late st Contact Info) Description 11/24/2020 Telephone [facility] Adult Primary Care - [address] [address] Tonja Alejandro PA-C [address] [place] [address] [place] [address] No Show Social History Tobacco Use [...]
--- OUTSIDE RECORDS SUMMARY | 2024-06-03 09:05 | XMS_ITS | Encounter Summary ---
Author Organization [facility] Address [address] [place] [address] Care Team Providers Care Fortune Teller Name Role Phone Carrington Calderon MD Primary Care Provi anders Abigail Díaz Unavailable Carmelo Hendrickson Unavailable Unavailable Abigail Díaz Unavailable [phone] Reason for Visit * Reason Onset Date Comments Appointment Related 04/06/2021 Appointment reminder Encounter Details Date Type Department Care Team (Late st Contact Info) Description 04/06/2021 Telephone [facility] General Surgery - [address] [phone] Britta Cox, RESTAURANT MGR [address] [facility], Level [address] [place] [address] Appointment Related (Appointment reminder ) [...] Entry Date Author No 10/02/2020 23:50 EDT [place], Krist in, RN documented in this encounter Miscellaneous Notes * Telephone Encounter - Daniella Batista MA - 04/06/2021 1352 EDT Called pt. 2x and left message at 1:35pm w/ televideo appt. reminder documented in this encounter Plan of Treatment Not on file documented as of this encounter Visit Diagnoses Not on filedocumented in this encounter Care Teams Fortune Teller Relationship Specialty Start Date End Date Carrington Calderon MD 1 [facility] 1 [place] [address] PCP - General Internal Medicine - Primary Care 12/09/20 Abigail Díaz Furniture Mover Helper 04/21/23 01/03/24 Carmelo Hendrickson Coordinator 12/01/23 Abigail Díaz Furniture Mover Helper 01/04/24 documented as of this encounter
--- OUTSIDE RECORDS SUMMARY | 2024-06-03 09:05 | XMS_ITS | Encounter Summary ---
Author Organization [facility] Address [address] [place] [address] Care Team Providers Care Hearse Driver Name Role Phone Carrington Calderon MD Primary Care Provi anders Reason for Visit * Reason Comments Other Encounter Details Date Type Department Care Team (Late st Contact Info) Description 03/16/2021 [facility] Adult Primary Care [facility] 1 [place], [place] [phone] Carrington Calderon MD 1 [facility] Level 1 [place] [address] Other Social History Tobacco Use [...] on filedocumented in this encounter Care Teams Hearse Driver Relationship Specialty Start Date End Date Carrington Calderon MD 1 [facility] 1 [place] [address] PCP - General Internal Medicine - Primary Care 12/09/20 documented as of this encounter
--- OUTSIDE RECORDS SUMMARY | 2024-06-03 09:05 | XMS_ITS | Encounter Summary ---
Author Organization [facility] Address [address] [place] [address] Care Team Providers Care Rotoprinter Name Role Phone Carrington Calderon MD Primary Care Provi anders Reason for Visit * Reason Comments Medication Management Encounter Details Date Type Department Care Team (Late st Contact Info) Description 06/11/2021 9:45 EST Office Visit [facility] Adult Primary Care - [place] 1 [place], [place] [address] Carrington Calderon MD 1 [facility] Level 1 [place] [phone] Type 2 diabetes mellitus with hyperosmolarity without coma, with long-term current use of insulin ([facility]) ([facility]) (Primary Dx); Anxiety; Chronic midline low back pain without sciatica; Anxiety and depression; Gastroparesis; Diabetic polyneuropathy associated with type 2 diabetes mellitus ([facility]) (HCC); Mid back pain Social History [...] emergency department For the diabetes -Down the Virt[employer] rena -If you have trouble using this [...] coma, with long-term current use of insulin ([facility]) ([facility]): By description, it sounds like glucose is responding well to the changes that were made last year. However, she does not have her freestyle mitul readings available today, and we do not have a recent A1c. I recommended getting an A1c as soon as she is able. I have sent an order to [place]. - HEMOGLOBIN A1C Anxiety: Continue lorazepam for [...] of the lumbar spine. Order sent to [place]. - XR LUMBAR SPINE 2-3 VIEWS Anxiety [...] diabetes mellitus ([facility]) ([facility]): Symptoms persist.Continue gabapentin. - gabapentin (NEURONTIN) 300 [...] was seen in the emergency department in [place] for recurrence ofintractable nausea and vomiting with [...] coma, with long-term current use of insulin ([facility])- Primary Anxiety Anxiety state, unspecified Chronic midline low back pain without sciatica Anxiety and depression Dysthymic disorder Gastroparesis Diabetic polyneuropathy associated with type 2 diabetes mellitus ([facility]) Mid back pain Backache, unspecified documented [...] 2 added in this encounter Care Teams Rotoprinter Relationship Specialty Start Date End Date Carrington Calderon MD 1 [facility] Level 1 [place] [phone] PCP - General Internal Medicine - Primary Care 12/09/20 documented as of this encounter
--- OUTSIDE RECORDS SUMMARY | 2024-06-03 09:05 | XMS_ITS | Encounter Summary ---
Author Organization [facility] Address [address] [place] [address] Care Team Providers Care Calender Operator Name Role Phone Carrington Calderon MD Primary Care Provi anders Reason for Visit * Reason Onset Date Comments Medications Refill 08/25/2021 Encounter Details Date Type Department Care Team (Late st Contact Info) Description 08/25/2021 Refill [facility] Adult Primary Care [address] [phone] Carrington Calderon MD 1 [facility] Level 1 [place] [phone] Medications Refill Social History Tobacco Use Types [...] documented as of this encounter Care Teams Calender Operator Relationship Specialty Start Date End Date Carrington Calderon MD 1 [facility] Level 1 [place] [phone] PCP - General Internal Medicine - Primary Care 12/09/20 documented as of this encounter
--- OUTSIDE RECORDS SUMMARY | 2024-06-03 09:05 | XMS_ITS | Encounter Summary ---
Author Organization [facility] Address [address] [place] [address] Care Team Providers Care Environmental Technology Professor Name Role Phone Carrington Calderon MD Primary Care Provi anders Reason for Visit * Reason Comments Medications Refill Diabetes Encounter Details Date Type Department Care Team (Late st Contact Info) Description 03/27/2021 13:30 EDT Office Visit [facility] Adult Primary Care - [address] [phone] Avelino Dowling MD [address] [place] [id number] Diabetes 1.5, managed as type 2 (HCC) [...] Avelino Dowling MD - 03/27/2021 1330 EDT [facility] DEPARTMENT OF INTERNAL MEDICINE [facility] DATE: 03/27/2021 PATIENT NAME: Cristy Luo [...] and depression ??? Type 2 diabetes mellitus ([facility]) ??? Chronic left ear pain ??? Family history of rheumatoid arthritis ??? Cellulitis of great toe of left foot ??? Chronic midline low back pain without sciatica ??? Diabetic foot infection (HCC-CMS) ([facility]) ??? Diabetic foot ulcer (HCC-CMS) ([facility]) ??? Diabetic foot ulcer associated with diabetes mellitus due to underlying condition (HCC-CMS) ([facility]) ??? Osteomyelitis of great toe of left foot (HCC-CMS) ([facility]) ??? 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 (HCC-CMS) ([facility]) ??? Osteomyelitis of toe of left foot ([facility]) ??? Type 2 diabetes mellitus with diabetic polyneuropathy, with long-term current use of insulin (HCC-CMS) ([facility]) ??? Hx of ectopic ??? Admission for sterilization ??? Gastroparesis ??? Intractable vomiting ??? Vomiting Medications Prior to Today's Visit Medication Sig ??? acetaminophen (TYLENOL) 325 mg tablet Take 2 Tabs by mouth every 4 hours as needed for Pain. ??? blood glucose meter One Touch Verio Flex meter. ??? blood glucose test strips Brand: [employer] Cristo, use as directed if Freestyle Vignesh [...] VIGNESH 2 READER) misc 1 Device by [facility] (non-drug; comboroute) route continuous. ??? flash glucose sensor (FREESTYLE VIGNESH 2 SENSOR) kit 1 Device by [facility] (non- drug; combo route) route continuous. ??? [...] Diagnosis Diabetes 1.5, managed as type 2 ([facility] Primary Type II or unspecified type diabetes [...] 06/11/2021 added in this encounter Care Teams Environmental Technology Professor Relationship Specialty Start Date End Date Carrington Calderon MD 1 [facility] Level 1 [place] [phone] PCP - General Internal Medicine - Primary Care 12/09/20 documented as of this encounter
--- OUTSIDE RECORDS SUMMARY | 2024-06-03 09:05 | XMS_ITS | Encounter Summary ---
Author Organization [facility] Address [address] [place] [address] Care Team Providers Care Bullet Casting Operator Name Role Phone Unavailable Primary Care [...] 21:17 EDT - 12/07/2020 1:52 EDT Emergency [facility] Emergency Department - [address] [address] Fran Barbosa MD [address] [place] [address], Level 1 [place] [address] Andrés Garcia MD [address] [place] [phone] Nausea and vomiting, intractability of vomiting [...] through Care Everywhere. * Nausea and Vomiting (Indian) documented in this encounter Medications at Time of Discharge acetaminophen (TYLENOL) 325 mg tablet Take 2 Tabs by mouth every 4 hours as needed for Pain. 08/20/2020 blood glucose meter One Touch Verio Flex meter. 1 Each 10/04/2019 2 blood glucose test strips Brand: [employer] Cristo, use as directed if Freestyle Vignesh [...] with long-term current use of insulin ([facility]) Use 1 pen needle as directed 4 times daily. 400 Each 2 09/02/2020 3 lancets Brand: Freestyle, use as directed if Freestyle Vigenshnigel guzmanor isnt working 100 Each 3 10/06/2020 [...] 12/11/2020 16:3 7 EDT us Scan 2 Cull Grader PROCEDURE/MINOR SURGICAL OR DERABLES Final Result * [...] 12/07/2020 0:26 [facility] Specific Neon, Urine 1.025 1.001 - 1.035 12/07/2020 0:26 [facility] Blood, UA Negative Negative 12/07/2020 0:26 [facility] pH, UA 7.0 <=8 12/07/2020 0:26 [facility] Protein, UA Negative Negative mg/dL 12/07/2020 0:26 [facility] Urobilinogen, UA 0.2 0.2 - 1.0 EU/dL 12/07/2020 0:26 [facility] Nitrite, UA Negative Negative 12/07/2020 0:26 [facility] Leuk Esterase Negative Negative 12/07/2020 0:26 [facility] HN LAB COMMENT (CLINITEK, UR) Test performed at Emergency Department 12/07/2020 0:26 [facility] Urine URINE SPECIMEN COLLECTION, CLEAN CATCH / Unknown 12/07/2020 0:20 EDT 12/07/2020 0:26 EDT Fran Barbosa MD POINT OF CARE TEST OR DERABLES Final Result Performing Organization Address [facility] de Phone Number [facility] [address] [place] [address] * POCT TEST, CLINITEK (12/07/2020 0:08 EDT) UPT Result Negative Negative 12/07/2020 0:14 EDT [facility] HN LAB COMMENT (CLINITEK, UPT) Test performed at Emergency Department 12/07/2020 0:14 EDT [facility] Comment:False negative resul ts may occur in women who are beyond 5-8 weeks gestation. Diagnosis of should be based on a correlation of test results with typical clinical signs and symptoms. Urine URINE SPECIMEN COLLECTION, CLEAN CATCH / Unknown 12/07/2020 0:08 EDT 12/07/2020 0:14 EDT Fran Barbosa MD POINT OF CARE TEST OR DERABLES Final Result Performing Organization Address [facility] de Phone Number [facility] [address] [place] [address] * POCT CSN BARCODE URINE PREG TEST (12/07/2020 0:06 EDT) Urine URINE SPECIMEN COLLECTION, CLEAN CATCH / Unknown Urine Collect / Unknown 12/07/2020 0:06 EDT 12/07/2020 0:06 EDT Fran Barbosa MD LAB INFO SERVICE AND SUPPORT & PHONE RESULT Final Result Performing Organization Address [facility] Co de Phone Number [facility] [address] [place] [address] * POCT CSN BARCODE URINE DIPSTICK (12/07/2020 0:06 EDT) Urine URINE SPECIMEN COLLECTION, CLEAN CATCH / Unknown Urine Collect / Unknown 12/07/2020 0:06 EDT 12/07/2020 0:06 EDT Fran Barbosa MD LAB INFO SERVICE AND SUPPORT & PHONE RESULT Final Result [facility] [address] [place] [address] * (ABNORMAL) BASIC METABOLIC PANEL (BMP) (12/06/2020 [...] CHEMISTRY & BLOOD GAS ORDERABLES Final Result [facility] [address] [place] [address] * EKG 12-LEAD (12/06/2020 21:43 EDT) 12/06/2020 21:4 3 EDT Narrative [facility] EKG - 12/11/2020 16:34 EDT ?[facility] Emergency ? Test Date: ?2020-12-06 Pat Name: ? CRISTY LUO ?Department: ?? ED ? Room: ? AC07 Gender: ? Female ? General Farmer: ?? : ?1985 ? Requested By: FAMILIA GAYLE Order Number: [id number] ? [place] MD: ?? TRACE NOYOLA MD ? Measurements Intervals ?[place] ? Rate: ? 86 ? P: ?8 SC: ? 132 ?QRS: ?15 QRSD: ? 92 [...] Note [place] Noyola MD - 12/11/2020 [facility] Emergency Test Date: 2020-12-06 Pat Name: CRISTY LUO Department: ED Room: [facility] Gender: Female General Farmer: : 1985 Requested By: FAMILIA SANCHEZ Order Number: [id number] [place] MD: CAROLINA NOYOLA MD Measurements Intervals [place] Rate: 86 P: 8 SC: 132 QRS: 15 QRSD: 92 T: -8 [...] MD CARDIAC ECG ORDERABLE S Final Result [facility] EKG * (ABNORMAL) BETA HYDROXYBUTYRATE (12/06/2020 21:30 EDT) Beta Hydroxybutyrate 2.0(H) <0.4 mmol/L 12/06/2020 22:19 EDT [facility] Blood VENOUS BLOOD / Unknown Venipuncture / Unknown 12/06/2020 21:30 EDT 12/06/2020 21:35 EDT Fran Barbosa MD CHEMISTRY & BLOOD GAS ORDERABLES Final Result Performing Organization Address City/[facility]/ZIP Co de Phone Number [facility] [address] [place] [address] * LIPASE (12/06/2020 21:30 EDT) Pathologist [facility] Lipase 97 <251 U/L 12/06/2020 22:06 EDT [facility] Blood VENOUS BLOOD / Unknown Venipuncture / Unknown 12/06/2020 21:30 EDT 12/06/2020 21:35 EDT Fran Barbosa MD CHEMISTRY & BLOOD GAS ORDERABLES Final Result Performing Organization Address City/[facility] Co de Phone Number [facility] [address] [place] [address] * (ABNORMAL) COMPREHENSIVE METABOLIC PANEL (CMP) (12/06/2020 21:30 EDT) Pathologist [facility] Sodium 142 136 - 145 mEq/L 12/06/2020 22:06 EDT [facility] Potassium 3.8 3.5 - 5.0 mEq/L 12/06/2020 22:06 EDT [facility] Chloride 97 96 - 110 mEq/L 12/06/2020 22:06 EDT [facility] CO2 Total 26 22 - 32 mEq/L 12/06/2020 22:06 EDT [facility] Glucose 288(H) 70 - [...] CHEMISTRY & BLOOD GAS ORDERABLES Final Result [facility] [address] [place] [address] * (ABNORMAL) COMPLETE BLOOD COUNT AND DIFFERENTIAL [...] 2.20 - 8.85 K/cmm 12/06/2020 21:47 EDT [facility] Absolute Lymphocytes 1.55 1.09 - 3.30 K/cmm 12/06/2020 21:47 EDT [facility] Absolute Monocytes 0.58 0.10 - 0.80 K/[facility] 12/06/2020 21:47 EDT [facility] Absolute Eosinophils 0.00(L) 0.03 - 0.61 K/[facility] 12/06/2020 21:47 EDT [facility] ABS Basophils 0.02 0.01 - 0.11 K/[facility] 12/06/2020 21:47 T [facility] Absolute Immature Grans 0.05 0.00 - 0.06 K/[facility] 12/06/2020 21:47 T [facility] Type of Differential: Auto 12/06/2020 21:47 EDT [facility] Blood VENOUS BLOOD / Unknown Venipuncture / Unknown 12/06/2020 21:30 EDT 12/06/2020 21:35 EDT us Fran Barbosa MD PACKAGES & DNA PROBE ORDERABLES Final Result [facility] [address] [place] [address] * BLOOD BANK HOLD (12/06/2020 21:30 EDT) Hold BB Spec will exp at 23:59, 3 days from collect date 12/06/2020 21:54 EDT [facility] BLOOD BANK Blood VENOUS BLOOD / Unknown Venipuncture / Unknown 12/06/2020 21:30 EDT 12/06/2020 21:37 EDT us Fran Barbosa MD BLOOD BANK TESTS Penny l Result [facility] BLOOD BANK [address] [place] [address] * HOLD SST (12/06/2020 21:30 EDT) Hold Hold 12/06/2020 22:45 EDT [facility] Blood VENOUS BLOOD / Unknown Venipuncture / Unknown 12/06/2020 21:30 EDT 12/06/2020 21:35 EDT us Fran Barbosa MD LAB INFO SERVICE AND SUPPORT & PHONE RESULT Final Result [facility] [address] [place] [address] * HOLD LAVENDER TOP (12/06/2020 21:30 EDT) Hold Hold 12/06/2020 22:45 EDT [facility] Blood VENOUS BLOOD / Unknown Venipuncture / Unknown 12/06/2020 21:30 EDT 12/06/2020 21:35 EDT us Fran Barbosa MD LAB INFO SERVICE AND SUPPORT & PHONE RESULT Final Result [facility] [address] [place] [address] * HOLD GREEN TOP (12/06/2020 21:30 EDT) Hold Hold 12/06/2020 22:45 EDT [facility] Blood VENOUS BLOOD / Unknown Venipuncture / Unknown 12/06/2020 21:30 EDT 12/06/2020 21:35 EDT us Fran Barbosa MD LAB INFO SERVICE AND SUPPORT & PHONE RESULT Final Result [facility] [address] [place] [address] * HOLD BLUE TOP (12/06/2020 21:30 EDT) Hold Hold 12/06/2020 22:45 EDT [facility] Blood VENOUS BLOOD / Unknown Venipuncture / Unknown 12/06/2020 21:30 EDT 12/06/2020 21:35 EDT us Fran Barbosa MD LAB INFO SERVICE AND SUPPORT & PHONE RESULT Final Result [facility] [address] [place] [address] * (ABNORMAL) POCT GLUCOSE, INTERFACED (12/06/2020 21:13 EDT) Glucose, POC 304(H) 70 - 100 mg/dL 12/06/2020 21:17 EDT [facility] HN LAB POC COMMENT (GLUCOSE) Test Performed by Nursing Services 12/06/2020 21:17 EDT [facility] Blood CAPILLARY BLOOD / Unknown 12/06/2020 21:13 EDT 12/06/2020 21:17 EDT us Provider Joe MARTÍNEZ POINT OF CARE TEST ORDERABLE S Final Result Performing Organization Address City/[facility]/ZIP Co de Phone Number [facility] [address] [place] [address] documented in this encounter Visit Diagnoses Diagnosis [...] at 2145, STAT 2149 (Given - Provider: Megah Dc RN) insulin regular (NOVOLIN R) injection [...]
--- OUTSIDE RECORDS SUMMARY | 2024-06-03 09:05 | XMS_ITS | Encounter Summary ---
Author Organization [facility] Address [address] [place] [address] Care Team Providers Care Testing Manager Name Role Phone Carrington Calderon MD Primary Care Provi anders Encounter Details Date Type Department Care Team (Late st Contact Info) Description 04/22/2021 Orders Only [facility] Adult Primary Care - [place] [address] [place], [place] [phone] Carrington Calderon MD 1 [facility] Level 1 [place] [address] Type 2 diabetes mellitus with [...] No 10/02/2020 23:50 Rievr Cavanaugh RN * Do you have serious [...] Notes * Carrington Calderon MD - 04/22/2021 6489 EST I think we can skip lipids. If you look at the HM, she's due for an A1C, albumin/creatinine ratio and a hep C screen. Can you order those? Thanks. * Carrington Calderon MD - 04/22/2021 7147 EST All set. Thanks. documented in this encounter Plan of Treatment Not on file documented as of this encounter Visit Diagnoses Diagnosis Type 2 diabetes mellitus with hyperosmolarity without coma, with long-term current use of insulin ([facility])- Primary Screening for hepatitis C declined Encounter for hepatitis C screening test for low risk patient documented in this encounter Care Teams Testing Manager Relationship Specialty Start Date End Date Carrington Calderon MD 1 [facility] Level 1 [place] [address] PCP - General Internal Medicine - Primary Care 12/09/20 documented as of this encounter
--- OUTSIDE RECORDS SUMMARY | 2024-06-03 09:05 | XMS_ITS | Encounter Summary ---
Author Organization [facility] Address [address] [place] [address] Care Team Providers Care Artificial Breast Fabricator Name Role Phone Carrington Calderon MD Primary [...] 20:55 EDT - 01/26/2021 1:16 EDT Emergency [facility] Emergency Department - [address] [id number] Mark Thibodeaux PA-C [address] [place] [phone] Siobhan Hare PA-C [address] [place] [phone] Non-intractable vomiting with nausea, unspecified vomiting [...] through Care Everywhere. * Nausea and Vomiting (Canadian) documented in this encounter Medications at Time [...] READER) misc 1 Device by [facility] [place]non-drug; combo route) route continuous. 1 Each 10/01/2020 2 flash glucose sensor (FREESTYLE VIGNESH 2 SENSOR) kit 1 Device by [facility] (non-drug; combo route) route continuous. 6 Kit [...] hyperglycemia, with long-term current use of insulin ([facility]) Use 1 pen needle as [...] Self [facility] documented in this encounter ED Notes * [...] 02/17/2021 18:1 8 EDT us Scan 2 Solar Manager PROCEDURE/MINOR SURGICAL OR DERABLES Final Result * (ABNORMAL) POCT URINE DIPSTICK, CLINITEK (01/26/2021 0:21 EDT) Color, UA Yellow Yellow 01/26/2021 0:23 [facility] Clarity, UA Clear Clear 01/26/2021 0:23 [facility] Glucose, UA 2+(A) Negative mg/dL 01/26/2021 0:23 [facility] Bilirubin, UA Negative Negative 01/26/2021 0:23 [facility] Ketones, UA 4+(AA) Negative mg/dL 01/26/2021 0:23 [facility] Specific [place], Urine >=1.030 1.001 - 1.035 01/26/2021 0:23 [facility] Blood, UA Negative Negative 01/26/2021 0:23 [facility] pH, UA 6.0 <=8 01/26/2021 0:23 [facility] Protein, UA Negative Negative mg/dL 01/26/2021 0:23 [facility] Urobilinogen, UA 0.2 0.2 - 1.0 EU/dL 01/26/2021 0:23 [facility] Nitrite, UA Negative Negative 01/26/2021 0:23 EDT [facility] Leuk Esterase Negative Negative 01/26/2021 0:23 EDT [facility] HN LAB COMMENT (CLINITEK, UR) Test performed at Emergency Department 01/26/2021 0:23 EDT [facility] Urine URINE SPECIMEN COLLECTION, CLEAN CATCH / Unknown 01/26/2021 0:21 EDT 01/26/2021 0:23 EDT Mark Thibodeaux PA-C POINT OF CARE TEST ORDERABLE S Final Result Performing Organization Address [facility] de Phone Number [facility] [address] [place] [address] * POCT TEST, CLINITEK (01/26/2021 0:16 EDT) [facility] UPT Result Negative Negative 01/26/2021 0:23 EDT [facility] HN LAB COMMENT (CLINITEK, UPT) Test performed at Emergency Department 01/26/2021 0:23 EDT [facility] Comment:False negative resul ts may occur in women who are beyond 5-8 weeks gestation. Diagnosis of should be based on a correlation of test results with typical clinical signs and symptoms. Urine URINE SPECIMEN COLLECTION, CLEAN CATCH / Unknown 01/26/2021 0:16 EDT 01/26/2021 0:23 EDT Mark Thibodeaux PA-C POINT OF CARE TEST ORDERABLE S Final Result Performing Organization Address [facility] Co de Phone Number [facility] [address] [place] [address] * POCT CSN BARCODE URINE PREG TEST (01/26/2021 0:01 EDT) Urine URINE SPECIMEN COLLECTION, CLEAN CATCH / Unknown Urine Collect / Unknown 01/26/2021 0:01 EDT 01/26/2021 0:01 EDT Mark Thibodeaux PA-C LAB INFO SERVICE AND SUPPORT & PHONE RESULT Final Result Performing Organization Address [facility]/ZIP Co de Phone Number [facility] [address] [place] [address] * POCT CSN BARCODE URINE DIPSTICK (01/26/2021 0:01 EDT) Urine URINE SPECIMEN COLLECTION, CLEAN CATCH / Unknown Urine Collect / Unknown 01/26/2021 0:01 EDT 01/26/2021 0:01 EDT us Mark Thibodeaux PA-C LAB INFO SERVICE AND SUPPORT & PHONE RESULT Final Result Performing Organization Address [facility] Co de Phone Number [facility] [address] [place] [address] * (ABNORMAL) BETA HYDROXYBUTYRATE (01/25/2021 21:55 EDT) Beta Hydroxybutyrate 2.2(H) <0.4 mmol/L 01/25/2021 22:23 EDT [facility] Blood VENOUS BLOOD / Unknown Venipuncture / Unknown 01/25/2021 21:55 EDT 01/25/2021 21:57 EDT us Mark Thibodeaux PA-C CHEMISTRY & BLOOD GAS ORDERA BLES Final Result Performing Organization Address [facility] Co de Phone Number [facility] [address] [place] [address] * (ABNORMAL) BASIC METABOLIC PANEL (BMP) (01/25/2021 21:55 EDT) Sodium 139 136 - 145 mmol/L 01/25/2021 22:18 EDT [facility] Potassium 3.7 3.5 - 5.0 mEq/L 01/25/2021 22:18 EDT [facility] Chloride 103 96 - 110 mEq/L 01/25/2021 22:18 EDT [facility] CO2 Total 22 22 - 32 mEq/L 01/25/2021 22:18 EDT [facility] Glucose 246(H) 70 - 100 mg/dL 01/25/2021 22:18 EDT [facility] Calcium 8.8 8.5 - 10.5 mg/dL 01/25/2021 22:18 EDT [facility] Calculated Calcium 8.9 8.5 - 10.5 mg/dL 01/25/2021 22:18 EDT [facility] BUN 11 10 - 26 mg/dL 01/25/2021 22:18 EDT [facility] Creatinine 0.48(L) 0.52 - 1.04 mg/dL 01/25/2021 22:18 EDT [facility] eGFR 127 >60 mL/min/1.7 3m2 01/25/2021 22:18 EDT [facility] Comment:eGFR calculated gil curtis CKD-EPI equation for non- Americans. Multiply eGFR by 1.16 for patients. Blood VENOUS BLOOD / Unknown Venipuncture / Unknown 01/25/2021 21:55 EDT 01/25/2021 21:57 EDT Mark Thibodeaux PA-C CHEMISTRY & BLOOD GAS ORDERA BLES Final Result [facility] [address] [place] [address] * EKG 12-LEAD (01/25/2021 21:12 EDT) 01/25/2021 21:1 2 EDT Narrative [facility] - 02/17/2021 18:13 EDT ?[facility] Emergency ? Test Date: ?2021-01-25 Pat Name: ? CRISTY LUO ?Department: ?? ED ? Room: ? WB05 Gender: ? Female ? Broom Handle Dipper: ?? : ?1985 ? Requested By: ANA oFrman Order Number: [id number] ? Reading MD: ?? AGA FAIRCHILD MD ? Measurements Intervals ?[place] ? Rate: ? 66 ? P: ?74 TN: ? 136 ?QRS: ?5 QRSD: ? 98 [...] Note Aga Fairchild MD - 02/17/2021 [facility] Emergency Test Date: 2021-01-25 Pat Name: CRISTY LUO Department: ED Room: [facility] Gender: Female Broom Handle Dipper: : 1985 Requested By: ANA Forman Order Number: [id number] Reading MD: AGA FAIRCHILD MD Measurements Intervals [place] Rate: 66 P: 74 TN: 136 QRS: 5 QRSD: 98 T: -4 [...] Thibodeaux PA-C CARDIAC ECG ORDERABLES Final Result [facility] documented in this encounter Visit Diagnoses [...] 01/25 documented in this encounter Care Teams Artificial Breast Fabricator Relationship Specialty Start Date End Date Carrington Calderon MD 1 [facility] [address] [place] [phone] PCP - General Internal Medicine - Primary Care 12/09/20 documented as of this encounter
--- OUTSIDE RECORDS SUMMARY | 2024-06-03 09:05 | XMS_ITS | Encounter Summary ---
Author Organization [facility] Address [address] [place] [address] Care Team Providers Care Fiber Technologist Name Role Phone Unavailable Primary Care [...]
--- OUTSIDE RECORDS SUMMARY | 2024-06-03 09:05 | XMS_ITS | Encounter Summary ---
Author Organization [facility] Address [address] [place] [address] Care Team Providers Care Bridges And Buildings Supervisor Name Role Phone Carrington Calderon MD [...] on filedocumented in this encounter Care Teams Bridges And Buildings Supervisor Relationship Specialty Start Date End Date Carrington Calderon MD 1 [facility] [address] [place] [phone] PCP - General Internal Medicine - Primary Care 12/09/20 documented as of this encounter
--- OUTSIDE RECORDS SUMMARY | 2024-06-03 09:05 | XMS_ITS | Encounter Summary ---
Author Organization [facility] Address [address] [place] [address] Care Team Providers Care Operations Officer Afloat Name Role Phone Carrington Calderon MD Primary Care Provi anders Reason for Visit * Reason Onset Date Comments Medications Refill 03/12/2021 Encounter Details Date Type Department Care Team (Late st Contact Info) Description 03/12/2021 Telephone [facility] Adult Primary Care - [place] [address] [place], [place] [address] Carrington Calderon MD 1 [facility] Level [address] [place] [phone] Medications Refill Social History Tobacco [...] 0914 EDT Medication(s) Requested: Lorazepam Preferred Pharmacy: [facility] Is patient out of medication? Yes Last [...] documented as of this encounter Care Teams Operations Officer Afloat Relationship Specialty Start Date End Date Carrington Calderon MD 1 [facility] [address] [place] [address] PCP - General Internal Medicine - Primary Care 12/09/20 documented as of this encounter
--- OUTSIDE RECORDS SUMMARY | 2024-06-03 09:05 | XMS_ITS | Encounter Summary ---
Author Organization [facility] Address [address] [place] [address] Care Team Providers Care Garment Alteration Examiner Name Role Phone Unavailable Primary Care Provider Unavailabl e Reason for Visit * Reason Onset Date Comments Emesis 11/20/2020 Encounter Details Date Type Department Care Team (Late st Contact Info) Description 11/20/2020 Telephone [facility] Adult Primary Care - [address] [phone] Tonja Alejandro PA-C [address] [place] [address] [place] [phone] Emesis Social History Tobacco Use Types [...] RN - 11/20/2020 1004 EDTAddended by: ROSELINE WHALYE on: 11/20/2020 10:04 Modules accepted: Orders * [...] but can talk to triage nurse at [facility]. Called and spoke briefly with [...] not receive previous reglan script. Resending to [facility]. The patient indicates understanding of these issues and agrees with the plan. No barriers noted. Called [facility] and gave report to charge nurse. * [...]
--- OUTSIDE RECORDS SUMMARY | 2024-06-03 09:05 | XMS_ITS | Encounter Summary ---
Author Organization [facility] Address [address] [place] [address] Care Team Providers Care Central Sterilization Technician Name Role Phone Carrington Calderon MD Primary Care Provi anders Encounter Details Date Type Department Care Team (Late st Contact Info) Description 02/12/2021 Orders Only [facility] Adult Primary Care - [place] [address] [place], [place] [address] Carrington Calderon MD 1 [facility] Level [address] [place] [phone] Osteomyelitis of great toe of [...] Primary documented in this encounter Care Teams Central Sterilization Technician Relationship Specialty Start Date End Date Carrington Calderon MD 1 [facility] [address] [place] [phone] PCP - General Internal Medicine - Primary Care 12/09/20 documented as of this encounter
--- OUTSIDE RECORDS SUMMARY | 2024-06-03 09:05 | XMS_ITS | Encounter Summary ---
Author Organization [facility] Address [address] [place] [address] Care Team Providers Care Onboarding Specialist Name Role Phone Carrington Calderon MD Primary Care Provi anders Reason for Visit * Reason Onset Date Comments Medications Refill 12/04/2020 Medications Refill 12/05/2020 Encounter Details Date Type Department Care Team (Late st Contact Info) Description 12/04/2020 Refill [facility] Adult Primary Care - [address] [phone] Tonja Alejandro PA-C [address] [place] [phone] Medications Refill; Medications Refill Social History [...] documented as of this encounter Care Teams Onboarding Specialist Relationship Specialty Start Date End Date Carrington Calderon MD 1 [facility] 1 [place] [phone] PCP - General Internal Medicine - Primary Care 12/09/20 documented as of this encounter
--- OUTSIDE RECORDS SUMMARY | 2024-06-03 09:05 | XMS_ITS | Encounter Summary ---
Author Organization [facility] Address [address] [place] [address] Care Team Providers Care Plant Senior Manager Name Role Phone Unavailable Primary Care [...]
--- OUTSIDE RECORDS SUMMARY | 2024-06-03 09:05 | XMS_ITS | Encounter Summary ---
Author Organization [facility] Address [address] [place] [address] Care Team Providers Care Key Account Executive Name Role Phone Carrington Calderon MD Primary Care Provi anders Abigail Díaz Unavailable [phone] Carmelo Hendrickson Unavailable Unavailable Abigail Díaz Unavailable Reason for Visit * Reason Onset Date Comments Medications Refill 12/31/2020 Encounter Details Date Type Department Care Team (Late st Contact Info) Description 12/31/2020 Refill [facility] Adult Primary Care - [address] [phone] Carrington Calderon MD 1 [facility] Level [address] [place] [phone] Medications Refill Social History Tobacco Use Types [...] documented as of this encounter Care Teams Key Account Executive Relationship Specialty Start Date End Date Carrington Calderon MD 1 [facility] 1 [place] [phone] PCP - General Internal Medicine - Primary Care 12/09/20 Abigail Díaz Marketing Content Coordinator 04/21/23 01/03/24 Carmelo Hendrickson Coordinator 12/01/23 Abigail Díaz Marketing Content Coordinator 01/04/24 documented as of this encounter
--- OUTSIDE RECORDS SUMMARY | 2024-06-03 09:05 | XMS_ITS | Encounter Summary ---
Author Organization [facility] Address [address] [place] [id number] Care Team Providers Care Library Clerical Assistant Name Role Phone Unavailable Primary Care Provider Unavailabl e Reason for Visit * Reason Comments Dehydration needs rehydration an d nausea meds per PCP Encounter Details Date Type Department Care Team (Latest Contact Info) Description 11/20/2020 9:58 EDT - 11/20/2020 12:29 EDT Hospital Encounter [facility] - [address] [address] Fran Blanco MD [address] [place] [phone] Nausea and vomiting, intractability of vomiting [...] Assessment Author No 10/02/2020 23:50 EDT River Farncisco RN * Because of a physical, mental, [...] through Care Everywhere. * Nausea and Vomiting ([place]ym[place]es) documented in this encounter Medications at Time [...] SENSOR) kit 1 Device by [facility] (non-drug; combo route) route continuous. 6 Kit [...] Ketones, UA 3+ (AA) Negative mg/dL Specific [place], Urine 1.025 1.001 - 1.035 Blood, UA [...] mellitus with left diabetic foot ulcer ([facility]) 05/03/2020 ??? Osteomyelitis of great toe of left foot ([facility]) 03/12/2020 ??? Diabetic foot ulcer associated with diabetes mellitus due to underlying condition ([facility]) 03/07/2020 ??? Diabetic foot infection ([facility]) 03/06/2020 ??? Diabetic foot ulcer ([facility]) 03/06/2020 ??? Cellulitis of great toe of left foot 11/26/2019 ??? Chronic midline low back pain without sciatica 11/26/2019 ??? Chronic left ear pain 09/04/2015 ??? Gastroparesis 08/10/2020 SUSPECTED - still needs to be eval with gastric emptying study (as of 08/10/20) ??? Admission for sterilization 06/27/2020 Added automatically from request for surgery [id number] ??? Osteomyelitis of toe of left foot ([facility]) 06/05/2020 Added automatically from request for surgery [id number] ??? Type 2 diabetes mellitus with diabetic polyneuropathy, with long-term current use of insulin ([facility]) 06/05/2020 Added automatically from request for surgery [id number] ??? Family history of rheumatoid arthritis 09/04/2015 Mother, pt with chronic back pain. Told arthritis in spine in teen yrs. ??? Type 2 diabetes mellitus ([facility]) 09/03/2015 Dx approx age 25. Controlled with lifestyle behaviors, wt loss. Had taken lantus in past 80u, Followed by endocrine in [facility]. Stopped few yrs ago until this past month. ??? Anxiety and depression 05/12/2010 Onset teen yrs. Treated with citalopram in approx 2013 - had SI, treated at [facility]. Marijuana prn to help with stress/anxiety sx. [...] has a referral for therapy. ??? Diabetes ([facility]) A1c 10.3 on 11/28/2019 - poorly controlled ??? Diabetes mellitus, type 2 ([facility]) pt check blood sugars at [...] [facility] : Stable [facility] 11/20/2020 17:40 * Harini Castaneda RN - [...] has a referral for therapy. ??? Diabetes ([facility]) A1c 10.3 on 11/28/2019 - poorly controlled ??? Diabetes mellitus, type 2 ([facility]) pt check blood sugars at [...] vomiting occasionally ??? Obesity, unspecified ??? Osteomyelitis ([facility]) of left great toe-s/p amputation [...] laboratory if clinically indicated. 11/21/2020 12:11 EDT [facility] Urine URINE SPECIMEN COLLECTION, CLEAN CATCH / Unknown Urine Collect / Unknown 11/20/2020 11:48 EDT 11/20/2020 12:45 EDT us Fran Blanco MD MICROBIOLOGY - GENERAL O RDERABLES Final Result [facility] [address] [place] [phone] * (ABNORMAL) URINE SEDIMENT (MICRO) WITH REFLEX TO CULTURE (11/20/2020 11:48 EDT) Urine RBC Count, Auto 3 - 10(A) 0 - 2 Cells/HPF 11/20/2020 12:45 EDT [facility] Urine WBC Count, Auto 11 - 50(A) 0 - 3 Cells/HPF 11/20/2020 12:45 EDT [facility] Urine Squamous Count, Auto Many(A) None Seen Cells/HPF 11/20/2020 12:45 EDT [facility] Urine Hyaline Cast Count, Auto <=10 <=10 Casts/LPF 11/20/2020 12:45 EDT [facility] Urine Bacteria Count, Auto Moderate(A ) None Seen Bacteria/H PF 11/20/2020 12:45 EDT [facility] Urine URINE SPECIMEN COLLECTION, CLEAN CATCH / Unknown Urine Collect / Unknown 11/20/2020 11:48 EDT 11/20/2020 12:25 EDT Narrative [facility] - 11/20/2020 12:45 EDT A Urine Culture test has been reflexively ordered based on result criteria from the Urine Sediment Analysis. Urine Sediment Analysis results are unreliable on urines that are unrefrigerated for >2 hrs or refrigerated >8 hrs. Fran Blanco MD URINALYSIS ORDERABLES Fi nal Result Performing Organization Address [facility] Co de Phone Number [facility] [address] [place] [address] * POCT CSN BARCODE URINE DIPSTICK (11/20/2020 11:47 EDT) Urine URINE SPECIMEN COLLECTION, CLEAN CATCH / Unknown Urine Collect / Unknown 11/20/2020 11:47 EDT 11/20/2020 11:47 EDT Fran Blanco MD LAB INFO SERVICE AND SUP PORT & PHONE RESULT Final Result Performing Organization Address [facility] Co de Phone Number [facility] [address] [place] [phone] * (ABNORMAL) POCT URINE DIPSTICK, CLINITEK (11/20/2020 11:44 EDT) Color, UA Yellow Yellow 11/20/2020 11:46 EDT [facility] Clarity, UA Cloudy(A) Clear 11/20/2020 11:46 EDT [facility] Glucose, UA 2+(A) Negative mg/dL 11/20/2020 11:46 EDT [facility] Bilirubin, UA Negative Negative 11/20/2020 11:46 EDT [facility] Ketones, UA 3+(AA) Negative mg/dL 11/20/2020 11:46 [facility] Specific [place], Urine 1.025 1.001 - 1.035 11/20/2020 11:46 [facility] Blood, UA Trace(A) Negative 11/20/2020 11:46 [facility] pH, UA 7.0 <=8 11/20/2020 11:46 [facility] Protein, UA 1+(A) Negative mg/dL 11/20/2020 11:46 [facility] Urobilinogen, UA 0.2 0.2 - 1.0 EU/dL 11/20/2020 11:46 [facility] Nitrite, UA Negative Negative 11/20/2020 11:46 [facility] Leuk Esterase Negative Negative 11/20/2020 11:46 [facility] HN LAB COMMENT (CLINITEK, UR) Test performed at Urgent Care 11/20/2020 11:46 [facility] Urine URINE SPECIMEN COLLECTION, CLEAN CATCH / Unknown 11/20/2020 11:44 EDT 11/20/2020 11:46 EDT us Fran Blanco MD POINT OF CARE TEST ORDER HAILEY Final Result [facility] [address] [place] [address] * (ABNORMAL) COMPLETE BLOOD COUNT AND DIFFERENTIAL (11/20/2020 10:35 EDT) WBC 14.78(H) 4.00 - 12.40 K/cmm 11/20/2020 11:51 [facility] RBC 4.65 3.86 - 5.04 M/cmm 11/20/2020 11:51 [facility] Hemoglobin 14.1 11.6 - 15.2 gm/dL 11/20/2020 11:51 [facility] HCT 40.7 34.9 - 44.4 % 11/20/2020 11:51 [facility] MCV 88 81 - 98 fl 11/20/2020 11:51 [facility] MCH 30.3 26.7 - 33.3 pg 11/20/2020 11:51 [facility] MCHC 34.6 32.1 - 35.9 gm/dL 11/20/2020 11:51 [facility] RDW-CV 12.5 <14.7 % 11/20/2020 11:51 [facility] RDW-SD 39.7 <50.4 fl 11/20/2020 11:51 [facility] PLT 385(H) 141 - 377 K/cmm 11/20/2020 11:51 [facility] MPV 10.2 9.5 - 12.7 fl 11/20/2020 11:51 [facility] % Neutrophils 84.6 % 11/20/2020 11:51 [facility] % Lymphocytes 10.4 % 11/20/2020 11:51 [facility] % Monocytes 4.3 % 11/20/2020 11:51 [facility] % Eosinophils 0.0 % 11/20/2020 11:51 [facility] % Basophils 0.2 % 11/20/2020 11:51 [facility] % Immature Grans 0.5 % 11/21/19 11:51 [facility] Absolute Neutrophils 12.51(H) 2.20 - 8.85 K/cmm 11/20/2020 11:51 [facility] Absolute Lymphocytes 1.53 1.09 - 3.30 K/cmm 11/20/2020 11:51 [facility] Absolute Monocytes 0.64 0.10 - 0.80 K/cmm 11/20/2020 11:51 [facility] Absolute Eosinophils 0.00(L) 0.03 - 0.61 K/cmm 11/20/2020 11:51 [facility] ABS Basophils 0.03 0.01 - 0.11 K/cmm 11/20/2020 11:51 [facility] Absolute Immature Grans 0.07(H) 0.00 - 0.06 K/cmm 11/20/2020 11:51 [facility] Type of Differential: Auto 11/20/2020 11:51 [facility] Blood VENOUS BLOOD / Unknown Venipuncture / Unknown 11/20/2020 10:35 EDT 11/20/2020 11:37 EDT us Fran Blanco MD PACKAGES & DNA PROBE ORD ERABLES Final Result [facility] [address] [place] [address] * (ABNORMAL) COMPREHENSIVE METABOLIC PANEL (CMP) (11/20/2020 10:35 EDT) Sodium 143 136 - 145 mEq/L 11/20/2020 12:01 [facility] Potassium 4.0 3.5 - 5.0 mEq/L 11/20/2020 12:01 [facility] Chloride 97 96 - 110 mEq/L 11/20/2020 12:01 [facility] CO2 Total 28 22 - 32 mEq/L 11/20/2020 12:01 [facility] Glucose 307(H) 70 - 100 mg/dL 11/20/2020 12:01 [facility] BUN 12 10 - 26 mg/dL 11/20/2020 12:01 [facility] Creatinine 0.49(L) 0.52 - 1.04 mg/dL 11/20/2020 12:01 [facility] eGFR 127 >60 mL/min/1.7 3m2 11/20/2020 12:01 [facility] Comment:eGFR calculated gil curtis CKD-EPI equation for non- Americans. Multiply eGFR by 1.16 for patients. Total Protein 7.6 6.3 - 8.2 g/dL 11/20/2020 12:01 [facility] Albumin 4.6 3.4 - 4.9 g/dL 11/20/2020 12:01 EDT [facility] Alkaline Phosphatase 113 38 - 126 U/L 11/20/2020 12:01 EDT [facility] AST 23 15 - 46 U/L 11/20/2020 12:01 EDT [facility] ALT 21 <35 U/L 11/20/2020 12:01 T [facility] Bilirubin, Total <0.5 <1.4 mg/dL 11/21/19 12:01 T [facility] Calcium 10.3 8.5 - 10.5 mg/dL 11/20/2020 12:01 [facility] Calculated Calcium 9.8 8.5 - 10.5 mg/dL 11/20/2020 12:01 [facility] Blood VENOUS BLOOD / Unknown Venipuncture / Unknown 11/20/2020 10:35 EDT 11/20/2020 11:37 EDT us Fran Blanco MD CHEMISTRY & BLOOD GAS OR DERABLES Final Result [facility] [address] [place] [address] documented in this encounter Visit Diagnoses Diagnosis [...]
--- OUTSIDE RECORDS SUMMARY | 2024-06-03 09:05 | XMS_ITS | Encounter Summary ---
Author Organization [facility] Address [address] [place] [address] Care Team Providers Care Social Services Director Name Role Phone Unavailable Primary Care [...]
--- OUTSIDE RECORDS SUMMARY | 2024-06-03 09:05 | XMS_ITS | Encounter Summary ---
Author Organization [facility] Address [address] [place] [address] Care Team Providers Care Jacquard Lace Weaver Name Role Phone Carrington Calderon MD Primary Care Provi anders Reason for Visit * Reason Onset Date Comments No Show 02/18/2021 Encounter Details Date Type Department Care Team (Late st Contact Info) Description 02/18/2021 Telephone [facility] Adult Primary Care - [address] [phone] Carrington Calderon MD 1 [facility] Level [address] [place] [phone] No Show Social History Tobacco [...] filedocumented in this encounter Care Teams Jacquard Lace Weaver Relationship Specialty Start Date End Date Carrington Calderon MD 1 [facility] Level [address] [place] [phone] PCP - General Internal Medicine - Primary Care 12/09/20 documented as of this encounter
--- OUTSIDE RECORDS SUMMARY | 2024-06-03 09:05 | XMS_ITS | Encounter Summary ---
Author Organization [facility] Address [address] [place] [address] Care Team Providers Care Commission Clerk Name Role Phone Carrington Calderon MD Primary Care Provi anders Reason for Visit * Reason Onset Date Comments Medications Refill 06/17/2021 Encounter Details Date Type Department Care Team (Late st Contact Info) Description 06/17/2021 Telephone [facility] Adult Primary Care [address] [phone] Carrington Calderon MD 1 [facility] Level [address] [place] [phone] Medications Refill Social History Tobacco Use Types [...] her appointment. Medication(s) Requested: Tramadol Preferred Pharmacy: [facility] [place] Is patient out of medication? Yes Last [...] documented as of this encounter Care Teams Commission Clerk Relationship Specialty Start Date End Date Carrington Calderon MD 1 [facility] Level [address] [place] [phone] PCP - General Internal Medicine - Primary Care 12/09/20 documented as of this encounter
--- OUTSIDE RECORDS SUMMARY | 2024-06-03 09:05 | XMS_ITS | Encounter Summary ---
Author Organization [facility] Address [address] [place] [address] Care Team Providers Care Behavioral Therapist Name Role Phone Unavailable Primary Care Provider Unavailabl e Reason for Visit * Reason Onset Date Comments Prior Auth, Medication 10/23/2020 Encounter Details Date Type Department Care Team (Late st Contact Info) Description 10/23/2020 Telephone [facility] Adult Primary Care [address] [phone] Tonja Alejandro PA-C [address] [place] [address] [place] [phone] Prior Auth, Medication Social History Tobacco [...] Auth needed for Lidocaine 5% Patches Mejia: [id number] PA has been completed via [place]. Awaiting decision Medication does not require a PA. Pharmacy notified documented in this encounter Plan of Treatment Not on file documented as of this encounter Visit Diagnoses Not on filedocumented in this encounter
--- OUTSIDE RECORDS SUMMARY | 2024-06-03 09:05 | XMS_ITS | Encounter Summary ---
Author Organization [facility] Address [address] [place] [address] Care Team Providers Care Rotoformer Backtender Name Role Phone Carrington Calderon MD Primary Care Provi anders Reason for Visit * Reason Onset Date Comments Referral Request 12/09/2020 GI Encounter Details Date Type Department Care Team (Late st Contact Info) Description 12/09/2020 Telephone [facility] Adult Primary Care [facility] [address] [place], [place] [phone] Tonja Alejandro PA-C [address] [place] [address] [place] [phone] Referral Request (GI) Social History Tobacco [...] Entry Date Author No 10/02/2020 23:50 EDT [place], Krist in, RN documented in this encounter [...] Gastroparesis documented in this encounter Care Teams Rotoformer Backtender Relationship Specialty Start Date End Date Carrington Calderon MD 1 [facility] Level [address] [place] [phone] PCP - General Internal Medicine - Primary Care 12/09/20 documented as of this encounter
--- OUTSIDE RECORDS SUMMARY | 2024-06-03 09:05 | XMS_ITS | Encounter Summary ---
Author Organization [facility] Address [address] [place] [address] Care Team Providers Care Roughing Mill Operator Name Role Phone Carrington Calderon MD Primary Care Provi anders Reason for Visit * Reason Comments Other Encounter Details Date Type Department Care Team (Late st Contact Info) Description 07/09/2021 [facility] Adult Primary Care [facility] [address] [place], [place] [phone] Carrington Calderon MD 1 [facility] Level 1 [place] [phone] Other Social History Tobacco Use [...] Mahan - 07/10/2021 1226 EST Sydnee from [facility] pharmacy calling to requestion some information. 1)She would like to know the associated diagnosis with the tramadol for their records. 2)She is also wondering if provider is aware she is taking tramadol and lorazepam. * Telephone Encounter - Jesi Love RN - 07/10/2021 1122 EST Medication(s) Requested: tramadol Preferred Pharmacy: [facility] Is patient out of medication? Unknown Last [...] documented as of this encounter Care Teams Roughing Mill Operator Relationship Specialty Start Date End Date Carrington Calderon MD 1 [facility] 1 [place] [phone] PCP - General Internal Medicine - Primary Care 12/09/20 documented as of this encounter
--- OUTSIDE RECORDS SUMMARY | 2024-06-03 09:05 | XMS_ITS | Encounter Summary ---
Author Organization [facility] Address [address] [place] [address] Care Team Providers Care Aba Tutor Name Role Phone Unavailable Primary Care Provider Unavailabl e Reason for Visit * Reason Comments Back Pain Encounter Details Date Type Department Care Team (Late st Contact Info) Description 11/04/2020 14:15 EDT Office Visit [facility] Adult Primary Care - [address] [phone] Tonja Alejandro PA-C [address] [place] [address] [place] [phone] Chronic midline low back pain with [...] the lumbarspine. We will get done at [place] [facility] -Continue physical therapy Tonja Alejandro PA-C [facility] Adult Primary Care-[place] 11/04/2020 14:45 I spent a total of [...]
--- OUTSIDE RECORDS SUMMARY | 2024-06-03 09:05 | XMS_ITS | Encounter Summary ---
Author Organization [facility] Address [address] [place] [address] Care Team Providers Care Aligner Barrel And Receiver Name Role Phone Unavailable Primary Care Provider Unavailabl e Reason for Visit * Reason Onset Date Comments Medications Refill 12/05/2020 Encounter Details Date Type Department Care Team (Late st Contact Info) Description 12/05/2020 Refill [facility] Adult Primary Care - [address] [phone] Tonja Alejandro PA-C [address] [place] [address] [place] [phone] Medications Refill Social History Tobacco Use [...]
--- OUTSIDE RECORDS SUMMARY | 2024-06-03 09:06 | XMS_ITS | Encounter Summary ---
Author Organization [facility] Address [address] [place] [address] Care Team Providers Care Cna Gna Name Role Phone Unavailable Primary Care Provider [...]
--- OUTSIDE RECORDS SUMMARY | 2024-06-03 09:06 | XMS_ITS | Encounter Summary ---
Author Organization [facility] Address [address] [place] [address] Care Team Providers Care Appliance Tester Name Role Phone Unavailable Primary Care [...] of Assessment Author No 08/09/2020 0:58 Niesha Yne RN documented as of this encounter Mental [...]
--- OUTSIDE RECORDS SUMMARY | 2024-06-03 09:06 | XMS_ITS | Encounter Summary ---
Author Organization [facility] Address [address] [place] [address] Care Team Providers Care Valet Runner Name Role Phone Unavailable Primary Care Provider Unavailabl e Reason for Visit * Reason Comments Follow-up Encounter Details Date Type Department Care Team (Latest Contact Info) Description 09/15/2020 9:45 EDT Office Visit [facility] Adult Primary Care - [address] [phone] Tonja Alejandro PA-C [address] [place] [address] [address] [place] [phone] Type 2 diabetes mellitus with hyperosmolarity without coma, with long-term current use of insulin ([facility]) (Primary Dx); Gastroparesis; Chronic bilateral thoracic back [...] Patient reports that she followed up with [facility] and underwent a laparoscopic bilateral salpingectomy on [...] worse. She has done physical therapy in [place] specifically pool therapy in the past. She also reports that she has a lot of excessive skin from her weight loss. She thinks that these pulls on the back muscles. She is interested in the future of possibly getting skin removal. Patient reports that on Tuesday she is traveling out to [place] prior self. She has severe anxiety whenit [...] Anxiety regarding this upcoming airplane flight to [place] -patient already has a prescription for lorazepam, [...] Tonja Alejandro PA-C [facility] Adult Primary Care-[place] 09/15/2020 9:59 I spent a total of [...] coma, with long-term current use of insulin ([facility])- Primary Gastroparesis Chronic bilateral thoracic back pain Lumbar pain Lumbago documented in this encounter
--- OUTSIDE RECORDS SUMMARY | 2024-06-03 09:06 | XMS_ITS | Encounter Summary ---
Author Organization [facility] Address [address] [place] [address] Care Team Providers Care Emergency Room Tech Name Role Phone Unavailable Primary Care Provider Unavailabl e Reason for Visit * Reason Onset Date Comments Medication Problem 10/06/2020 Encounter Details Date Type Department Care Team (Late st Contact Info) Description 10/06/2020 Telephone [facility] Adult Primary Care - [address] [phone] Tonja Alejandro PA-C [address] [place] [address] [place] [phone] Medication Problem Social History Tobacco Use [...] been signed * Telephone Encounter - Jesi uLa, RN - 10/06/2020 1540 EDT Spoke with [...] - 10/06/2020 1453 EDT Incoming fax from [facility] states the rx for lancets does not [...] diabetes mellitus with left diabetic foot ulcer ([facility])- Primary Type II or unspecified type diabetes mellitus with other specified manifestations, not stated as uncontrolled documented in this encounter Orders Equipment Count Last Ordered Date First Orde red Date GENERIC DME ORDER 1 10/06/2020 documented in this encounter
--- OUTSIDE RECORDS SUMMARY | 2024-06-03 09:06 | XMS_ITS | Encounter Summary ---
Author Organization [facility] Address [address] [place] [address] Care Team Providers Care Dock Operator Name Role Phone Unavailable Primary Care Provider Unavailabl e Reason for Visit * Reason Onset Date Comments Medication Questions 10/09/2020 Encounter Details Date Type Department Care Team (Late st Contact Info) Description 10/09/2020 Telephone [facility] Adult Primary Care - [address] [phone] Tonja Alejandro PA-C [address] [place] [address] [address] [place] [phone] Medication Questions Social History Tobacco [...]
--- OUTSIDE RECORDS SUMMARY | 2024-06-03 09:06 | XMS_ITS | Encounter Summary ---
Author Organization [facility] Address [address] [place] [address] Care Team Providers Care Supervisor Matrix Name Role Phone Unavailable Primary Care Provider [...]
--- OUTSIDE RECORDS SUMMARY | 2024-06-03 09:06 | XMS_ITS | Encounter Summary ---
Author Organization [facility] Address [address] [place] [address] Care Team Providers Care Environmental Control Administrator Name Role Phone Unavailable Primary Care Provider Unavailabl e Reason for Visit * Reason Onset Date Comments Coordination Of Care 10/01/2020 Patient arturo ding to ED Encounter Details Date Type Department Care Team (Late st Contact Info) Description 10/01/2020 Telephone [facility] Adult Primary Care - [address] [id number] Tonja Alejandro PA-C [address] [place] [address] [place] [phone] Coordination Of Care (Patient heading to [...] doing well. She did fly out to [place] to visit her family and came back. [...]
--- OUTSIDE RECORDS SUMMARY | 2024-06-03 09:06 | XMS_ITS | Encounter Summary ---
Author Organization [facility] Address [address] [place] [address] Care Team Providers Care Sand Blaster Name Role Phone Unavailable Primary Care Provider Unavailabl e Encounter Details Date Type Department Care Team (Late st Contact Info) Description 10/10/2020 Orders Only [facility] Adult Primary Care - [address] [phone] Tonja Alejandro PA-C [address] [place] [address] [place] [phone] Social History Tobacco Use Types Packs/Day [...]
--- OUTSIDE RECORDS SUMMARY | 2024-06-03 09:06 | XMS_ITS | Encounter Summary ---
Author Organization [facility] Address [address] [place] [address] Care Team Providers Care Injection Molding Supervisor Name Role Phone Unavailable Primary Care Provider Unavailabl e Encounter Details Date Type Department Care Team (Late st Contact Info) Description 09/02/2020 Orders Only [facility] Endocrinology - [facility] [address] [place] [address] Sara Zafar, GUSTAVO [address] [facility] [address] [place] [phone] Type 2 diabetes mellitus with hyperglycemia, with long-term current use of insulin ([facility]) (Primary Dx) Social History Tobacco [...] current use of insulin ([facility])- Primary documented in this encounter
--- OUTSIDE RECORDS SUMMARY | 2024-06-03 09:06 | XMS_ITS | Encounter Summary ---
Author Organization [facility] Address [address] [place] [address] Care Team Providers Care Documentation Analyst Name Role Phone Unavailable Primary Care Provider Unavailabl e Reason for Visit * Reason Onset Date Comments Medication Questions 10/22/2020 Encounter Details Date Type Department Care Team (Late st Contact Info) Description 10/22/2020 Telephone [facility] Adult Primary Care - [address] [address] Tonja Alejandro PA-C [address] [place] [address] [place] [phone] Medication Questions Social History Tobacco Use [...] Rivre Cavanaugh RN * Do you have difficulty [...]
--- OUTSIDE RECORDS SUMMARY | 2024-06-03 09:06 | XMS_ITS | Encounter Summary ---
Author Organization [facility] Address [address] [place] [address] Care Team Providers Care Electrical And Instrument Mechanic Name Role Phone Unavailable Primary Care Provider Unavailabl e Encounter Details Date Type Department Care Team (Late st Contact Info) Description 09/11/2020 Community Health Team [facility] Health [facility] [address] [facility], [address] [place] [address] Briana Larson [address] [facility] [address] [place] [address] Social History Tobacco Use Types Packs/Day Years [...] patient as discussed. .. Adult Primary Care [place], [address] [place] [address] Total Time: 15 min phone, 20 min care coordination, 10 min charting Referral: Counseling Follow up: Consult only Status: Graduated documented in this encounter Plan of Treatment Not on file documented as of this encounter Visit Diagnoses Not on filedocumented in this encounter
--- OUTSIDE RECORDS SUMMARY | 2024-06-03 09:06 | XMS_ITS | Encounter Summary ---
Author Organization [facility] Address [address] [place] [address] Care Team Providers Care Vaccines Solutions Specialist Name Role Phone Unavailable Primary Care Provider Unavailabl e Reason for Visit * Reason Onset Date Comments Medications Refill 10/01/2020 Encounter Details Date Type Department Care Team (Late st Contact Info) Description 10/01/2020 Refill [facility] Adult Primary Care - [address] [address] Tonja Alejandro PA-C [address] [place] [address] [place] [phone] Medications Refill Social History Tobacco Use [...] Telephone Encounter - Elver Kamini - 10/02/2020 7690 EDT Medication(s) Requested: metoclopramide HCI Preferred Pharmacy: [id number] Is patient out of medication? Unknown Last Refill Date: 08/11/2020 Last Visit Date with Ordering Provider: 09/15/2020 Next Non-Acute Visit Date Scheduled with Care Team: No. Kamini Raya 10/02/2020 15:47 documented in this encounter Plan of Treatment Not on file documented as of this encounter Visit Diagnoses Not on filedocumented in this encounter
--- OUTSIDE RECORDS SUMMARY | 2024-06-03 09:06 | XMS_ITS | Encounter Summary ---
Author Organization [facility] Address [address] [place] [address] Care Team Providers Care Fitting Room Maintenance Mechanic Name Role Phone Unavailable Primary Care Provider Unavailabl e Reason for Visit * Reason Comments Post-OP Follow Up Encounter Details Date Type Department Care Team (Late st Contact Info) Description 09/04/2020 16:15 EDT Post-op Visit [facility] OBGYN Services - [address] [address] [place] [address] [place] [phone] Dysuria (Primary Dx) [...] 1615 EDT Department of Obstetrics and Gynecology [facility] Clinic CC: Postop follow-up Procedure: Laparoscopic bilateral [...] established with PCP but interested in annual COMPUTING SERVICES DIRECTOR with [facility] clinic - Recommend scheduling visit for annual in [address] Alfonso. Clarke Joseph MD Obstetrics and Gynecology, PGY-2 Pager #[phone] 09/04/20 16:35 * Cristy Alfonso MD MPH [...] CFU/ml Usual urogenital candis. 09/06/2020 10:45 EDT [facility] Urine URINE SPECIMEN COLLECTION, CLEAN CATCH / Unknown Urine Collect / Unknown 09/04/2020 16:57 EDT 09/04/2020 17:53 EDT Cristy Alfonso MD MPH MICROBIOLOGY - GENERAL ORDERABLES Final Result [facility] [address] [place] [address] * (ABNORMAL) URINE CHEMICAL (DIP) & SEDIMENT (MICRO) WITH REFLEX TO CULTURE (09/04/2020 16:57 EDT) Color UA Yellow Colorless, Yellow 09/04/2020 17:53 EDT [facility] Clarity UA Clear Clear 09/04/2020 17:53 EDT [facility] Glucose UA Negative Negative 09/04/2020 17:53 [facility] Bilirubin UA Negative Negative 09/04/2020 17:53 [facility] Ketones UA Trace(A) Negative 09/04/2020 17:53 [facility] Specific [place], Urine 1.032 1.001 - 1.035 09/04/2020 17:53 [facility] Blood UA Negative Negative 09/04/2020 17:53 [facility] Urobilinogen UA 3(A) Normal mg/dL 09/04/2020 17:53 [facility] Nitrite UA Negative Negative 09/04/2020 17:53 [facility] Leukocyte Esterase UA Trace(A) Negative 09/04/2020 17:53 [facility] Protein UA 1+(A) Negative 09/04/2020 17:53 [facility] pH, UA 6.5 4.6 - 8.0 09/04/2020 17:53 [facility] Urine RBC Count, Auto 3 - 10(A) 0 - 2 Cells/HPF 09/04/2020 17:53 [facility] Urine WBC Count, Auto 11 - 50(A) 0 - 3 Cells/HPF 09/04/2020 17:53 [facility] Urine Squamous Count, Auto Many(A) None Seen Cells/HPF 09/04/2020 17:53 [facility] Urine Hyaline Cast Count, Auto <=10 <=10 Casts/LPF 09/04/2020 17:53 [facility] Urine Bacteria Count, Auto Few(A) None Seen Bacteria/HP F 09/04/2020 17:53 [facility] Urine URINE SPECIMEN COLLECTION, CLEAN CATCH / Unknown Urine Collect / Unknown 09/04/2020 16:57 EDT 09/04/2020 17:03 [facility] - 09/04/2020 17:53 EDT A Urine Culture test has been reflexively ordered based on result criteria from the Urine Sediment Analysis. Urine Sediment Analysis results are unreliable on urines that are unrefrigerated for >2 hrs or refrigerated >8 hrs. us Cristy Alfonso MD MPH URINALYSIS ORDERABLES Final Result [facility] [address] [place] [address] documented in this encounter Visit Diagnoses Diagnosis Dysuria- Primary documented in this encounter
--- OUTSIDE RECORDS SUMMARY | 2024-06-03 09:06 | XMS_ITS | Encounter Summary ---
Author Organization [facility] Address [address] [place] [address] Care Team Providers Care Rail Car Repairer Name Role Phone Unavailable Primary Care Provider Unavailabl e Reason for Referral * PT/OT/ST (Routine) - Closed Specialty Diagnoses / Procedures Referred By Contac t Referred To Contact Diagnoses Acute right-sided low back pain with sciatica, sciatica laterality unspecified Moshe Ferrer MD Phone: tel: fax: Gay Hyman, PT [id number] [place] [address] Phone: tel: fax: Referral ID Status Reason Start Date Expiration Date V isits Requested Visits Authorized [id number] Closed Specialty Services Required 10/22/2020 1 1 Question Answer Reason for Request: acute on chronic low back pain, history of emotional trauma Reason for Visit * Reason Comments Back Pain right lower back kuldeep n radiating down right lower limb. Encounter Details Date Type Department Care Team (Late st Contact Info) Description 10/22/2020 10:00 EDT Office Visit [facility] Adult Primary Care - [address] [place] [address] Linnea Patel MD [address] [place] [id number] Acute right-sided low back pain with sciatica, [...] Linnea Patel MD - 10/22/2020 1000 EDT [facility] Patient Name: [...] the resident's note. Moshe Ferrer MD FACP powder coat painter documented in this encounter Plan of Treatment [...]
--- OUTSIDE RECORDS SUMMARY | 2024-06-03 09:06 | XMS_ITS | Encounter Summary ---
Author Organization [facility] Address [address] [place] [address] Care Team Providers Care Improvement Leader Name Role Phone Unavailable Primary Care Provider Unavailabl e Reason for Visit * Reason Onset Date Comments Back Pain 10/21/2020 Encounter Details Date Type Department Care Team (Late st Contact Info) Description 10/21/2020 Telephone [facility] Adult Primary Care - [address] [id number] Caroline Skinner MD [address] [place] [phone] Back Pain Social History Tobacco [...] MD - 10/21/2020 1910 EDT call center professional message: arnold calling on her behalf. Severe [...]
--- OUTSIDE RECORDS SUMMARY | 2024-06-03 09:06 | XMS_ITS | Encounter Summary ---
Author Organization [facility] Address [address] [place] [address] Care Team Providers Care Automated Process Operator Name Role Phone Unavailable Primary Care [...] Expiration Date Visits Re quested Visits Authorized [id number] 1 1 Encounter Details Date Type Department Care Team (Late st Contact Info) Description 10/02/2020 18:44 EDT - 10/03/2020 12:37 EDT Hospital Encounter [facility] [address] [place] [address] Jonas Ambrosio MD 111 [facility], Level [address] [place] [address] Bonita See MD [address] [address] Intractable vomiting (Primary Dx); Intractable [...] Disposition Code Departure Means Destination Home-Health Care [facility] documented in this encounter Progress Notes * Carlos Gabriel - 10/03/2020 1237 EDT Case Management Note: Patient was discharged home to self care prior to initial CM assessment. This television script writer reviewed the patient's chart and discussed the patient's situation with the medical team. No case management dc needs were identified. Carlos Gabriel RN, [facility], [facility] Pager # [phone] * Shirley Monte RN - 10/03/2020 0626 [...] a referral for therapy. ??? Diabetes ([facility]) A1c 10.3 on 11/28/2019 - poorly controlled ??? Diabetes mellitus, type 2 ([facility]) pt check blood sugars at home- [...] IDDM2 c/b neuropathy - SSI - restart RELAY TESTER lantis 42 U and aspart 9 U TID once resumes eating (hold and use SSI until see trend considering glucose values overnight and recurrent N/V after arrival to floor) - held sitagliptin Counseled on monitoring left second digit Back pain - RELAY TESTER gabapentin Anxiety - RELAY TESTER lorazepam Diet: Consistent carb diet VTE Prophylaxis: lovenox Consults: none CODE STATUS: Full Prognosis/Disposition: likely discharge home tomorrow is she is medically stable. Admission Status Inpatient. Anticipated duration of hospitalization is greater than two midnights due to intractablevomiting. Keerthi Alejandro, MS 4 Acting Save All Operator 10/03/2020 1:45 Cortex; Pager #[phone] Attending Attestation Date of service: 10/03/20 I [...] exam for emergent medical conditions at [facility] on 10/02/2020 This note was created [...] to reach out on next appointment at [facility] for suggestions. She does hold for 10-15 [...] with her endo in November. Vicki CLARKE supervisor paper coating Nurse Clinician #[id number] documented in this encounter Plan of Treatment Not on file documented as of this encounter Procedures Procedure Name Priority Date/Time Associated Diagnosis Comments ECG REPORT - SCANNED 10/27/2020 16:38 EDT COMPLETE BLOOD COUNT Routine 10/03/2020 7:15 EDT BUN Routine 10/03/2020 7:15 EDT CREATININE Routine 10/03/2020 7:15 EDT ELECTROLYTES Routine 10/03/2020 7:15 EDT POCT GLUCOSE, INTERFACED Routine 10/03/2020 6:02 EDT ZZCOVID-19 TEST [facility] PCR Today 10/02/2020 22:44 EDT COVID-19 [...] 10/27/2020 16:3 8 EDT us Scan 2 Transactional Paralegal PROCEDURE/MINOR SURGICAL OR DERABLES Final Result * (ABNORMAL) COMPLETE BLOOD COUNT (10/03/2020 7:15 EDT) WBC 12.78(H) 4.00 - 12.40 K/cmm 10/03/2020 8:32 [facility] RBC 4.06 3.86 - 5.04 M/cmm 10/03/2020 8:32 [facility] Hemoglobin 13.1 11.6 - 15.2 gm/dL 10/03/2020 8:32 [facility] HCT 35.2 34.9 - 44.4 % 10/03/2020 8:32 [facility] MCV 87 81 - 98 fl 10/03/2020 8:32 [facility] MCH 32.3 26.7 - 33.3 pg 10/03/2020 8:32 [facility] MCHC 37.2(H) 32.1 - 35.9 gm/dL 10/03/2020 8:32 [facility] RDW-CV 12.2 <14.7 % 10/03/2020 8:32 [facility] RDW-SD 38.9 <50.4 fl 10/03/2020 8:32 [facility] PLT 372 141 - 377 K/cmm 10/03/2020 8:32 [facility] MPV 9.4(L) 9.5 - 12.7 fl 10/03/2020 8:32 [facility] Blood VENOUS BLOOD / Unknown Venipuncture / Unknown 10/03/2020 7:15 EDT 10/03/2020 8:21 EDT us Bonita See MD HEMATOLOGY & PF4 ORDERABLES F inal Result [facility] [address] [place] [address] * (ABNORMAL) BUN (10/03/2020 7:15 EDT) Pathologist [facility] BUN 6(L) 10 - 26 mg/dL 10/03/2020 9:07 EDT [facility] Blood VENOUS BLOOD / Unknown Venipuncture / Unknown 10/03/2020 7:15 EDT 10/03/2020 8:23 EDT us Bonita See MD CHEMISTRY & BLOOD GAS ORDERAB LES Final Result Performing Organization Address [facility] de Phone Number [facility] [address] [place] [address] * (ABNORMAL) CREATININE (10/03/2020 7:15 EDT) Pathologist [facility] Creatinine 0.43(L) 0.52 - 1.04 mg/dL 10/03/2020 9:07 EDT [facility] eGFR 132 >60 mL/min/1.7 3m2 10/03/2020 9:07 EDT [facility] Comment:eGFR calculated gil curtis CKD-EPI equation for non- Americans. Multiply eGFR by 1.16 for patients. Blood VENOUS BLOOD / Unknown Venipuncture / Unknown 10/03/2020 7:15 EDT 10/03/2020 8:23 EDT us Bonita See MD CHEMISTRY & BLOOD GAS ORDERAB LES Final Result Performing Organization Address City/[facility] Co de Phone Number [facility] [address] [place] [address] * (ABNORMAL) ELECTROLYTES (10/03/2020 7:15 EDT) Pathologist [facility] Sodium 135(L) 136 - 145 mEq/L 10/03/2020 9:07 EDT [facility] Potassium 3.7 3.5 - 5.0 mEq/L 10/03/2020 9:07 EDT [facility] Chloride 98 96 - 110 mEq/L 10/03/2020 9:07 EDT [facility] CO2 Total 23 22 - 32 mEq/L 10/03/2020 9:07 EDT [facility] Blood VENOUS BLOOD / Unknown Venipuncture / Unknown 10/03/2020 7:15 EDT 10/03/2020 8:23 EDT Bonita See MD CHEMISTRY & BLOOD GAS ORDERAB LES Final Result Performing Organization Address [facility] Co de Phone Number [facility] [address] [place] [address] * (ABNORMAL) POCT GLUCOSE, INTERFACED (10/03/2020 6:02 EDT) Glucose, POC 177(H) 70 - 100 mg/dL 10/03/2020 6:08 EDT [facility] heel top lift splitter ID [id number] 10/03/2020 6:08 EDT [facility] HN LAB POC COMMENT (GLUCOSE) Test Performed by Nursing Services 10/03/2020 6:08 EDT [facility] Blood CAPILLARY BLOOD / Unknown 10/03/2020 6:02 EDT 10/03/2020 6:08 EDT Bonita See MD POINT OF CARE TEST ORDERABLES Final Result Performing Organization Address [facility]/ZIP Co de Phone Number [facility] [address] [place] [address] * COVID-19 TEST [facility] PCR (10/02/2020 22:44 EDT) Swab ENTIRE NASOPHARYNX / Unknown Swab / Unknown 10/02/2020 22:44 EDT 10/02/2020 22:46 EDT Beverly Marvin MD MICROBIOLOGY - GE NERAL ORDERABLES Final Result Performing Organization Address City/[facility]/ZIP Co de Phone Number [facility] [address] [place] [address] * COVID-19 TESTING (10/02/2020 22:44 EDT) COVID-19 rt-PCR Result Negative Negative 10/03/2020 1:45 EDT [facility] Comment: [...] history, and epidemiological information. Performed on the [employer] instrument Performing Lab [facility] 10/03/2020 1:45 EDT [facility] Swab ENTIRE NASOPHARYNX / Unknown Swab / Unknown 10/02/2020 22:44 EDT 10/02/2020 22:46 EDT Beverly Marvin MD MICROBIOLOGY - [facility] ORDERABLES Final Result Performing Organization Address City/State/[facility] Co de Phone Number [facility] [address] [place] [address] * CT ABDOMEN PELVIS W CONTRAST (10/02/2020 [...] suspicious osseous lesion. Multilevel discogenic endplate changes. Marble Machine Tender: No additional findings. Procedure Note Wilian Wellington [...] or suspicious osseous lesion.Multilevel discogenic endplate changes. Marble Machine Tender: No additional findings. IMPRESSION 1. No acute inflammatory process identified in the abdomen and pelvis. 2. Nonobstructing left renal calculus, unchanged. I have personally reviewed the images and the above interpretation andagree with the findings. us Beverly Marvin MD IMG CT ORDERABLES Final Result * QUANT BETA HCG, (10/02/2020 19:51 EDT) Beta HCG Quant, <5 <5 mIU/ml 10/02/2020 20:26 EDT [facility] Comment: NOTE: : Negative: [...] GAS ORDERABLES Final Result Performing Organization Address [facility] Co de Phone Number [facility] [address] [place] [address] * LACTIC ACID (10/02/2020 19:10 EDT) Pathologist [facility] Lactic Acid 1.2 <=2.0 mmol/L 10/02/2020 19:28 EDT [facility] Blood VENOUS BLOOD / Unknown Venipuncture / Unknown 10/02/2020 19:10 EDT 10/02/2020 19:16 EDT us Beverly Marvin MD CHEMISTRY & BLOOD GAS ORDERABLES Final Result Performing Organization Address [facility] Co de Phone Number [facility] [address] [place] [address] * HOLD BLUE TOP (10/02/2020 19:10 EDT) Hold Hold 10/02/2020 20:17 EDT [facility] Blood VENOUS BLOOD / Unknown Venipuncture / Unknown 10/02/2020 19:10 EDT 10/02/2020 19:15 EDT Jonas Ambrosio MD LAB INFO SERVICE AND SUPPORT & PHONE RESULT Final Result [facility] [address] [place] [address] * (ABNORMAL) SCREENING GLUCOSE (10/02/2020 19:10 EDT) [facility] Glucose, Screening 189(H) 70 - 100 mg/dL 10/02/2020 19:32 EDT [facility] Comment:Elevated screening g lucose value greater than 180 mg/dl, please order follow up Hemoglobin A1C. Blood VENOUS BLOOD / Unknown Venipuncture / Unknown 10/02/2020 19:10 EDT 10/02/2020 19:16 EDT Jonas Ambrosio MD CHEMISTRY & BLOOD GAS ORDERAB LES Final Result [facility] [address] [place] [address] * MAGNESIUM (10/02/2020 19:10 EDT) [facility] Magnesium 1.8 1.7 - 2.8 mg/dL 10/02/2020 19:28 EDT [facility] Blood VENOUS BLOOD / Unknown Venipuncture / Unknown 10/02/2020 19:10 EDT 10/02/2020 19:16 EDT us Jonas Ambrosio MD CHEMISTRY & BLOOD GAS ORDERAB LES Final Result [facility] [address] [place] [address] * TROPONIN I (10/02/2020 19:10 EDT) Troponin I (ng/mL) <0.034 <0.034 ng/mL 10/02/2020 19:40 EDT [facility] Blood VENOUS BLOOD / Unknown Venipuncture / Unknown 10/02/2020 19:10 EDT 10/02/2020 19:16 EDT Narrative [facility] - 10/02/2020 19:40 EDT The results of this assay can be falsely lowered due to the consumption of Biotin. us Jonas Ambrosio MD CHEMISTRY & BLOOD GAS ORDERAB LES Final Result Performing Organization Address [facility] Co de Phone Number [facility] [address] [place] [address] * (ABNORMAL) ELECTROLYTES (10/02/2020 19:10 EDT) Sodium 132(L) 136 - 145 mEq/L 10/02/2020 19:28 EDT [facility] Potassium 3.4(L) 3.5 - 5.0 mEq/L 10/02/2020 19:28 T [facility] Chloride 95(L) 96 - 110 mEq/L 10/02/2020 19:28 T [facility] CO2 Total 30 22 - 32 mEq/L 10/02/2020 19:28 T [facility] Blood VENOUS BLOOD / Unknown Venipuncture / Unknown 10/02/2020 19:10 EDT 10/02/2020 19:16 EDT us Jonas Ambrosio MD CHEMISTRY & BLOOD GAS ORDERAB LES Final Result Performing Organization Address [facility] Co de Phone Number [facility] [address] [place] [address] * (ABNORMAL) CREATININE (10/02/2020 19:10 EDT) Creatinine 0.45(L) 0.52 - 1.04 mg/dL 10/02/2020 19:28 EDT [facility] eGFR 130 >60 mL/min/1.7 3m2 10/02/2020 19:28 EDT [facility] Comment:eGFR calculated gil curtis CKD-EPI equation for non- Americans. Multiply eGFR by 1.16 for patients. Blood VENOUS BLOOD / Unknown Venipuncture / Unknown 10/02/2020 19:10 EDT 10/02/2020 19:16 EDT Jonas Ambrosio MD CHEMISTRY & BLOOD GAS ORDERAB LES Final Result Performing Organization Address [facility] Co de Phone Number [facility] [address] [place] [address] * (ABNORMAL) BUN (10/02/2020 19:10 EDT) Pathologist [facility] BUN 6(L) 10 - 26 mg/dL 10/02/2020 19:28 EDT [facility] Blood VENOUS BLOOD / Unknown Venipuncture / Unknown 10/02/2020 19:10 EDT 10/02/2020 19:16 EDT Jonas Ambrosio MD CHEMISTRY & BLOOD GAS ORDERAB LES Final Result Performing Organization Address City/[facility] Co de Phone Number [facility] [address] [place] [address] * (ABNORMAL) COMPLETE BLOOD COUNT AND DIFFERENTIAL (10/02/2020 19:10 EDT) WBC 13.29(H) 4.00 - 12.40 K/cmm 10/02/2020 19:32 T [facility] RBC 4.09 3.86 - 5.04 M/cmm 10/02/2020 19:32 T [facility] Hemoglobin 12.7 11.6 - 15.2 gm/dL 10/02/2020 19:32 T [facility] HCT 36.1 34.9 - 44.4 % 10/02/2020 19:32 T [facility] MCV 88 81 - 98 fl 10/02/2020 19:32 [facility] MCH 31.1 26.7 - 33.3 pg 10/02/2020 19:32 [facility] MCHC 35.2 32.1 - 35.9 gm/dL 10/02/2020 19:32 [facility] RDW-CV 12.3 <14.7 % 10/02/2020 19:32 [facility] RDW-SD 39.6 <50.4 fl 10/02/2020 19:32 [facility] PLT 355 141 - 377 K/cmm 10/02/2020 19:32 [facility] MPV 9.2(L) 9.5 - 12.7 fl 10/02/2020 19:32 [facility] % Neutrophils 57.2 % 10/02/2020 19:32 [facility] % Lymphocytes 32.1 % 10/02/2020 19:32 [facility] % Monocytes 9.0 % 10/02/2020 19:32 [facility] % Eosinophils 0.8 % 10/02/2020 19:32 [facility] % Basophils 0.5 % 10/02/2020 19:32 [facility] % Immature Grans 0.4 % 10/03/19 19:32 [facility] Absolute Neutrophils 7.62 2.20 - 8.85 K/cmm 10/02/2020 19:32 [facility] Absolute Lymphocytes 4.27(H) 1.09 - 3.30 K/cmm 10/02/2020 19:32 [facility] Absolute Monocytes 1.19(H) 0.10 - 0.80 K/cmm 10/02/2020 19:32 [facility] Absolute Eosinophils 0.10 0.03 - 0.61 K/cmm 10/02/2020 19:32 [facility] ABS Basophils 0.06 0.01 - 0.11 K/cmm 10/02/2020 19:32 [facility] Absolute Immature Grans 0.05 0.00 - 0.06 K/cmm 10/02/2020 19:32 EDT [facility] Type of Differential: Auto 10/02/2020 19:32 EDT [facility] Blood VENOUS BLOOD / Unknown Venipuncture / Unknown 10/02/2020 19:10 EDT 10/02/2020 19:15 EDT us Jonas Ambrosio MD PACKAGES & DNA PROBE ORDERABL ES Final Result [facility] [address] [place] [address] * EKG 12-LEAD (10/02/2020 19:04 EDT) 10/02/2020 19:0 4 EDT Narrative [facility] EKG - 10/27/2020 16:30 EDT ?[facility] ? Test Date: ?2020-10-02 Pat Name: ? CRISTY LUO ?Department: ?? ED ? Room: ? AC06 Gender: ? Female ? Mat Weaver: ?? [id number] : ?1985 ? Requested By: BO Santizo Order Number: [id number] ? Sammie MARTÍNEZ: ?? CINDYDANY SNYDER MD ? Measurements Intervals ?[place] ? Rate: ? 92 ? P: ?59 WI: ? 155 ?QRS: ?10 QRSD: ? 91 ? T: ?0 QT: ? 356 ? QTc: ?442 ? Interpretive Statements SINUS RHYTHM Compared to ECG 10/02/2020 19:04:21 No significant changes I reviewed the tracing and have either agreed or edited the findings in this report. Electronically Signed On 10-27-2020 16:30:39 EDT by CINDY SNYDER MD. Procedure Note Cindy Snyder Jr., MD - 10/27/2020 [facility] Test Date: 2020-10-02 Pat Name: CRISTY LUO Department: ED Room: [facility] Gender: Female Mat Weaver: [id number] : 1985 Requested By: BO Santizo Order Number: [id number] Reading MD: CINDY SNYDER MD Measurements Intervals [place] Rate: 92 P: 59 WI: 155 QRS: 10 QRSD: 91 T: 0 QT: 356 QTc: 442 Interpretive Statements SINUS RHYTHM Compared to ECG 10/02/2020 19:04:21 No significant changes I reviewed the tracing and have either agreed or edited the findings inthis report. Electronically Signed On 10-27-2020 16:30:39 EDT by CINDY SANDOVAL. Jonas Ambrosio MD CARDIAC ECG ORDERABLES Final Result [facility] EKG * (ABNORMAL) COMPREHENSIVE METABOLIC PANEL (CMP) (10/01/2020 11:51 EDT) Sodium 139 136 - 145 mEq/L 10/02/2020 19:47 [facility] Potassium 3.5 3.5 - 5.0 mEq/L 10/02/2020 19:47 [facility] Comment: NOTE: Interpret with caution. Prolonged sample storage may alter the result. Chloride 97 96 - 110 mEq/L 10/02/2020 19:47 [facility] CO2 Total 23 22 - 32 mEq/L 10/02/2020 19:47 [facility] Comment: NOTE: Interpret with caution. Prolonged sample storage may alter the result. Glucose 221(H) 70 - 100 mg/dL 10/02/2020 19:47 [facility] BUN 13 10 - 26 mg/dL 10/02/2020 19:47 [facility] Creatinine 0.50(L) 0.52 - 1.04 mg/dL 10/02/2020 19:47 [facility] eGFR 126 >60 mL/min/1.7 3m2 10/02/2020 19:47 [facility] Comment:eGFR calculated gil curtis CKD-EPI equation for non- Americans. Multiply eGFR by 1.16 for patients. Total Protein 6.6 6.3 - 8.2 g/dL 10/02/2020 19:47 [facility] Albumin 4.1 3.4 - 4.9 g/dL 10/02/2020 19:47 [facility] Alkaline Phosphatase 86 38 - 126 U/L 10/02/2020 19:47 [facility] AST 31 15 - 46 U/L 10/02/2020 19:47 [facility] ALT 24 <35 U/L 10/02/2020 19:47 [facility] Bilirubin, Total 0.5 <1.4 mg/dL 10/03/19 19:47 [facility] Calcium 9.6 8.5 - 10.5 mg/dL 10/02/2020 19:47 [facility] Calculated Calcium 9.5 8.5 - 10.5 mg/dL 10/02/2020 19:47 [facility] Blood VENOUS BLOOD / Unknown Venipuncture / Unknown 10/01/2020 11:51 EDT 10/01/2020 11:57 EDT Beverly Marvin MD CHEMISTRY & BLOOD GAS ORDERABLES Final Result Performing Organization Address City/[facility]/ZIP Co de Phone Number [facility] [address] [place] [address] * LIPASE (10/01/2020 11:51 EDT) Lipase 174 <251 U/L 10/02/2020 19:46 EDT [facility] Blood VENOUS BLOOD / Unknown Venipuncture / Unknown 10/01/2020 11:51 EDT 10/01/2020 11:57 EDT Beverly Marvin MD CHEMISTRY & BLOOD GAS ORDERABLES Final Result [facility] [address] [place] [address] documented in this encounter Visit Diagnoses Diagnosis [...] involvement without evidence of necrosis ([facility]) Vomiting Vomiting alone documented in this encounter [...] NOW X1, 1 dose, On Tue10/02/20 at [id number] (Given - Provider: Fermin Ramirez RN) [...] FLEXPEN) injection 1 10/03/2020 polyethylene glycol 3350 (IL RALAX) packet 17 g 1 10/03/2020 potassium chloride SA (K-DUR ) tablet 40 mEq 1 10/03/2020 ramelteon (ROZEREM) tablet 8 mg 1 Diet Count Last Ordered Date First Orde red Date DISCHARGE DIET 1 10/03/2020 Nursing Count Last Ordered Date First Orde red Date ACTIVITY INSTRUCTIONS 1 10/03/2020 BATHING INSTRUCTIONS 1 10/03/2020 DRIVING INSTRUCTIONS 1 10/03/2020 NOTIFY EXHIBITOR SALES 1 10/02/2020 Admission Count Last Ordered Date [...]
--- OUTSIDE RECORDS SUMMARY | 2024-06-03 09:06 | XMS_ITS | Encounter Summary ---
Author Organization [facility] Address [address] [place] [address] Care Team Providers Care Circular Clerk Name Role Phone Unavailable Primary Care Provider Unavailabl e Reason for Visit * Reason Onset Date Comments Medications Refill 10/07/2020 Encounter Details Date Type Department Care Team (Late st Contact Info) Description 10/07/2020 Telephone [facility] Endocrinology - [facility] [address] [place] [address] Sara Zafar NP [address] [facility] [address] [place] [address] Medications Refill Social History Tobacco [...]
--- OUTSIDE RECORDS SUMMARY | 2024-06-03 09:06 | XMS_ITS | Encounter Summary ---
Author Organization [facility] Address [address] [place] [address] Care Team Providers Care Retail Associate Manager Bilingual Name Role Phone Unavailable Primary Care Provider [...] 11:05 EDT - 10/01/2020 15:04 EDT Emergency [facility] Emergency Department - Main [place] [address] [place], [place] [id number] Aubrey Javed, MARY [address] [place], [place] [id number] Non-intractable vomiting with nausea, unspecified vomiting type [...] hot showers, but is too weak to clinical haematologist the shower for very long today. Patient [...] gotten relief with outpatient oral Haldol from [facility]. patient is currently not vomiting and [...] the Emergency Department: Stable PCP: Tonja Alejandro [facility] Number of Diagnoses or Management Options Amount and/or Complexity of Data Reviewed Clinical lab tests: ordered Tests in the medicine section of CPT??: ordered Alessandro Delgadillo 10/03/2020 8:15 No flowsheet data found. * Diego Casas RN - 10/01/2020 5050 EDT PO fluids provided for PO challenge. [...] 14.04(H) 4.00 - 12.40 K/cmm [facility] RBC 4.42 3.86 - 5.04 M/cmm 10/01/2020 12:28 [facility] Hemoglobin 14.1 11.6 - 15.2 gm/dL 10/01/2020 12:28 [facility] HCT 38.2 34.9 - 44.4 % 10/01/2020 12:28 [facility] MCV 86 81 - 98 fl 10/01/2020 12:28 [facility] MCH 31.9 26.7 - 33.3 pg 10/01/2020 12:28 [facility] MCHC 36.9(H) 32.1 - 35.9 gm/dL 10/01/2020 12:28 [facility] RDW-CV 12.4 <14.7 % 10/01/2020 12:28 [facility] RDW-SD 39.3 <50.4 fl 10/01/2020 12:28 [facility] PLT 380(H) 141 - 377 K/cmm 10/01/2020 12:28 [facility] MPV 9.6 9.5 - 12.7 fl 10/01/2020 12:28 [facility] % Neutrophils 71.0 % 10/01/2020 12:28 [facility] % Lymphocytes 21.1 % 10/01/2020 12:28 [facility] % Monocytes 6.9 % 10/01/2020 12:28 [facility] % Eosinophils 0.2 % 10/01/2020 12:28 [facility] % Basophils 0.4 % 10/01/2020 12:28 [facility] % Immature Grans 0.4 % 10/02/19 12:28 [facility] Absolute Neutrophils 9.97(H) 2.20 - 8.85 K/cmm 10/01/2020 12:28 [facility] Absolute Lymphocytes 2.96 1.09 - 3.30 K/cmm 10/01/2020 12:28 [facility] Absolute Monocytes 0.97(H) 0.10 - 0.80 K/cmm 10/01/2020 12:28 [facility] Absolute Eosinophils 0.03 0.03 - 0.61 K/cmm 10/01/2020 12:28 [facility] ABS Basophils 0.06 0.01 - 0.11 K/cmm 10/01/2020 12:28 [facility] Absolute Immature Grans 0.05 0.00 - 0.06 K/cmm 10/01/2020 12:28 [facility] Type of Differential: Auto 10/01/2020 12:28 [facility] Blood VENOUS BLOOD / Unknown Venipuncture / Unknown 10/01/2020 11:51 EDT 10/01/2020 11:57 EDT Aubrey Javed PA-C PACKAGES & DNA PROBE ORDERABL ES Final Result Performing Organization Address [facility]/ZIP Co de Phone Number [facility] [address] [place] [address] * (ABNORMAL) BASIC METABOLIC PANEL (BMP) (10/01/2020 11:51 EDT) Sodium 138 136 - 145 mEq/L 10/01/2020 12:23 EDT [facility] Potassium 3.5 3.5 - 5.0 mEq/L 10/01/2020 12:23 [facility] Chloride 98 96 - 110 mEq/L 10/01/2020 12:23 [facility] CO2 Total 27 22 - 32 mEq/L 10/01/2020 12:23 [facility] Glucose 218(H) 70 - 100 mg/dL 10/01/2020 12:23 [facility] Calcium 9.4 8.5 - 10.5 mg/dL 10/01/2020 12:23 [facility] Calculated Calcium 9.3 8.5 - 10.5 mg/dL 10/01/2020 12:23 [facility] BUN 13 10 - 26 mg/dL 10/01/2020 12:23 [facility] Creatinine 0.52 0.52 - 1.04 mg/dL 10/01/2020 12:23 [facility] eGFR 124 >60 mL/min/1.7 3m2 10/01/2020 12:23 [facility] Comment:eGFR calculated gil curtis CKD-EPI equation for non- Americans. Multiply eGFR by 1.16 for patients. Blood VENOUS BLOOD / Unknown Venipuncture / Unknown 10/01/2020 11:51 EDT 10/01/2020 11:57 EDT Aubrey Javed PA-C CHEMISTRY & BLOOD GAS ORDERAB LES Final Result Performing Organization Address City/[facility]/ZIP Co de Phone Number [facility] [address] [place] [address] * (ABNORMAL) POCT GLUCOSE, INTERFACED (10/01/2020 11:14 EDT) Glucose, POC 167(H) 70 - 100 mg/dL 10/01/2020 11:15 EDT [facility] owner operator ID [id number] 10/01/2020 11:15 EDT [facility] HN LAB POC COMMENT (GLUCOSE) Test Performed by Nursing Services 10/01/2020 11:15 EDT [facility] Blood CAPILLARY BLOOD / Unknown 10/01/2020 11:14 EDT 10/01/2020 11:15 EDT Aubrey Javed PA-C POINT OF CARE TEST ORDERABLES Final Result [facility] [address] [place] [address] documented in this encounter Visit Diagnoses Diagnosis [...]
--- OUTSIDE RECORDS SUMMARY | 2024-06-03 09:06 | XMS_ITS | Encounter Summary ---
Author Organization [facility] Address [address] [place] [address] Care Team Providers Care Silk Examiner Name Role Phone Unavailable Primary Care [...]
--- OUTSIDE RECORDS SUMMARY | 2024-06-03 09:06 | XMS_ITS | Encounter Summary ---
Author Organization [facility] Address [address] [place] [id number] Care Team Providers Care Supervisor Aircraft Maintenance Name Role Phone Unavailable Primary Care Provider Unavailabl e Reason for Referral * Radiology Services (Routine) - Closed Specialty Diagnoses / Procedures Referred By Annetteac rupa Referred To Contact Nuclear Medicine Diagnoses Generalized abdominal pain Emesis, persistent Type 2 diabetes mellitus with hyperosmolarity without coma, with long-term current use of insulin ([facility]) Procedures NM GASTRIC EMPTYING SOLID Broderick Irene MD Phone: tel: fax: Referral ID Status Reason Start Date Expiration Date Visits Re quested Visits Authorized [id number] Closed 08/10/2020 1 1 Reason for Visit * Radiology Services (Routine) - Closed Specialty Diagnoses / Procedures Referred By [facility] Referred To Contact Nuclear Medicine Diagnoses Generalized abdominal pain Emesis, persistent Type 2 diabetes mellitus with hyperosmolarity without coma, with long-term current use of insulin ([facility]) Procedures NM GASTRIC EMPTYING SOLID Broderick Irene MD Phone: tel: fax: Referral ID Status Reason Start Date Expiration Date Visits Re quested Visits Authorized [id number] Closed 08/10/2020 1 1 Encounter Details Date Type Department Care Team (Latest Contact Info) Description 09/09/2020 8:27 EDT - 09/09/2020 23:59 EDT Hospital Encounter [facility] Radiology Nuclear Medicine and PET - [address] [address] Generalized abdominal pain; Emesis, persistent; Type 2 diabetes mellitus with hyperosmolarity without coma, with long-term current use of insulin ([facility]) Discharge Disposition: Home or Self Care [...] hyperglycemia, with long-term current use of insulin ([facility]) Use 1 pen needle as directed 4 times daily. 400 Each 2 09/02/2020 3 lancets [employer] or other brand compatible with lancing device [...] coma, with long-term current use of insulin ([facility]) POCT GLUCOSE, INTERFACED Routine 09/09/2020 8:47 [...] POCT GLUCOSE, INTERFACED (09/09/2020 8:47 EDT) Pathologist [facility] Glucose, POC 107(H) 70 - 100 mg/dL 09/10/2020 6:44 EDT [facility] electrophysiology scientist ID [id number] 09/10/2020 6:44 EDT [facility] HN LAB POC COMMENT (GLUCOSE) Test performed by Nuclear Medicine 09/10/2020 6:44 EDT [facility] Blood CAPILLARY BLOOD / Unknown 09/09/2020 8:47 EDT 09/10/2020 6:44 EDT us Provider Unknown POINT OF CARE TEST ORDERABLE S Final Result [facility] [address] [place] [address] documented in this encounter Visit Diagnoses Diagnosis Generalized abdominal pain Abdominal pain, generalized Emesis, persistent Persistent vomiting Type 2 diabetes mellitus with hyperosmolarity without coma, with long-term current use of insulin ([facility]) documented in this encounter Administered Medications Inactive [...]
--- OUTSIDE RECORDS SUMMARY | 2024-06-03 09:06 | XMS_ITS | Encounter Summary ---
Author Organization [facility] Address [address] [place] [address] Care Team Providers Care Boat Outboard Engine Mechanic Name Role Phone Unavailable Primary Care [...]
--- OUTSIDE RECORDS SUMMARY | 2024-06-03 09:06 | XMS_ITS | Encounter Summary ---
Author Organization [facility] Address [address] [place] [address] Care Team Providers Care Emergency Communications Dispatcher Name Role Phone Unavailable Primary Care Provider Unavailabl e Reason for Visit * Reason Onset Date Comments Results 09/12/2020 Encounter Details Date Type Department Care Team (Late st Contact Info) Description 09/12/2020 Telephone [facility] OBGYN [address], [place] [id number] [place] [id number] [place] [id number] Results Social History [...] Joseph MD Obstetrics and Gynecology, PGY-2 Pager #[phone] 09/12/20 9:42 documented in this encounter Plan of Treatment Not on file documented as of this encounter Visit Diagnoses Not on filedocumented in this encounter
--- OUTSIDE RECORDS SUMMARY | 2024-06-03 09:06 | XMS_ITS | Encounter Summary ---
Author Organization [facility] Address [address] [place] [address] Care Team Providers Care Accounting Administrator Name Role Phone Unavailable Primary Care [...]
--- OUTSIDE RECORDS SUMMARY | 2024-06-03 09:06 | XMS_ITS | Encounter Summary ---
Author Organization [facility] Address [address] [place] [address] Care Team Providers Care Nib Finisher Name Role Phone Unavailable Primary Care [...] 7:17 EDT - 09/30/2020 12:44 EDT Emergency [facility] Emergency Department - Main [address] [id number] Doris Moreno MD [address] [facility], [address] [place] [address] Gastroparesis (Primary Dx); Non-intractable vomiting, [...] be sent through Care Everywhere. * Gastroparesis (Palestinian) * Nausea and Vomiting (Palestinian) documented in [...] current use of insulin ([facility]) Use 1 pen needle as [...] Code Departure Means Destination Home or Self Mcc documented in this encounter ED Notes * [...] [facility] on 09/30/2020 Scribe attestation: This [...] Glucose, POC 316 (*) Final Tech ID [id number] Final HN LAB POC COMMENT (GLUCOSE) Test Performed by Nursing Services Final POCT BLOOD GAS, EG6 I-STAT - Abnormal pH, i-STAT 7.53 (*) Final pCO2, i-STAT 35 Final pO2, i-STAT 34 (*) Final TCO2, i-STAT 30 (*) Final O2 Saturation, i-STAT 74 (*) Final Base Excess, i-STAT 6 (*) Final Sample Source VENOUS Final Tech ID [id number] Final Comment (EG6) Final Value: Test Performed by Respiratory. For non-arterial reference ranges, please see ISTAT procedure POCT GLUCOSE, INTERFACED - Abnormal Glucose, POC 210 (*) Final Tech ID [id number] Final HN LAB POC COMMENT (GLUCOSE) Test Performed by Nursing Services Final POCT GLUCOSE, INTERFACED - Abnormal Glucose, POC 202 (*) Final Tech ID [id number] Final HN LAB POC COMMENT (GLUCOSE) Test [...] 10/04/2020 16:2 9 EDT us Scan 2 Doctor Of Naturopathic Medicine PROCEDURE/MINOR SURGICAL OR DERABLES Final Result * (ABNORMAL) POCT GLUCOSE, INTERFACED (09/30/2020 11:30 EDT) Glucose, POC 202(H) 70 - 100 mg/dL 09/30/2020 11:31 EDT [facility] soldering machine tender ID [id number] 09/30/2020 11:31 EDT [facility] HN LAB POC COMMENT (GLUCOSE) Test Performed by Nursing Services 09/30/2020 11:31 EDT [facility] Blood CAPILLARY BLOOD / Unknown 09/30/2020 11:30 EDT 09/30/2020 11:31 EDT us Doris Moreno MD POINT OF CARE TEST ORDERABLES F inal Result [facility] [address] [place] [address] * (ABNORMAL) POCT GLUCOSE, INTERFACED (09/30/2020 10:48 EDT) Glucose, POC 210(H) 70 - 100 mg/dL 09/30/2020 11:31 EDT [facility] soldering machine tender ID [id number] 09/30/2020 11:31 EDT [facility] HN LAB POC COMMENT (GLUCOSE) Test Performed by Nursing Services 09/30/2020 11:31 EDT [facility] Blood CAPILLARY BLOOD / Unknown 09/30/2020 10:48 EDT 09/30/2020 11:31 EDT Doris Moreno MD POINT OF CARE TEST ORDERABLES F inal Result Performing Organization Address City/[facility] Co de Phone Number [facility] [address] [place] [address] * TROPONIN I (09/30/2020 8:55 EDT) Troponin I (ng/mL) <0.034 <0.034 ng/mL 09/30/2020 9:24 EDT [facility] Blood VENOUS BLOOD / Unknown Venipuncture / Unknown 09/30/2020 8:55 EDT 09/30/2020 8:58 EDT Narrative [facility] - 09/30/2020 9:24 EDT The results of this assay can be falsely lowered due to the consumption of Biotin. Doris Moreno MD CHEMISTRY & BLOOD GAS ORDERABLE S Final Result Performing Organization Address [facility] Co de Phone Number [facility] [address] [place] [address] * (ABNORMAL) BETA HYDROXYBUTYRATE (09/30/2020 8:45 EDT) Beta Hydroxybutyrate 0.7(H) <0.4 mmol/L 09/30/2020 9:14 EDT [facility] Blood VENOUS BLOOD / Unknown Venipuncture / Unknown 09/30/2020 8:45 EDT 09/30/2020 8:50 EDT Doris Moreno MD CHEMISTRY & BLOOD GAS ORDERABLE S Final Result Performing Organization Address [facility]/ZIP Co de Phone Number [facility] [address] [place] [address] * LIPASE (09/30/2020 8:45 EDT) Lipase 108 <251 U/L 09/30/2020 9:09 EDT [facility] Blood VENOUS BLOOD / Unknown Venipuncture / Unknown 09/30/2020 8:45 EDT 09/30/2020 8:50 EDT us Doris Moreno MD CHEMISTRY & BLOOD GAS ORDERABLE S Final Result [facility] [address] [place] [address] * (ABNORMAL) SCREENING GLUCOSE (09/30/2020 8:45 EDT) Glucose, Screening 268(H) 70 - 100 mg/dL 09/30/2020 9:10 EDT [facility] Comment:Elevated screening g lucose value greater than 180 mg/dl, please order follow up Hemoglobin A1C. Blood VENOUS BLOOD / Unknown Venipuncture / Unknown 09/30/2020 8:45 EDT 09/30/2020 8:50 EDT us Doris Moreno MD CHEMISTRY & BLOOD GAS ORDERABLE S Final Result [facility] [address] [place] [address] * (ABNORMAL) MAGNESIUM (09/30/2020 8:45 EDT) Magnesium 1.6(L) 1.7 - 2.8 mg/dL 09/30/2020 9:09 EDT [facility] Blood VENOUS BLOOD / Unknown Venipuncture / Unknown 09/30/2020 8:45 EDT 09/30/2020 8:50 EDT us Doris Moreno MD CHEMISTRY & BLOOD GAS ORDERABLE S Final Result [facility] [address] [place] [address] * ELECTROLYTES (09/30/2020 8:45 EDT) Sodium 144 136 - 145 mEq/L 09/30/2020 9:09 EDT [facility] Potassium 4.0 3.5 - 5.0 mEq/L 09/30/2020 9:09 EDT [facility] Chloride 104 96 - 110 mEq/L 09/30/2020 9:09 EDT [facility] CO2 Total 24 22 - 32 mEq/L 09/30/2020 9:09 EDT [facility] Blood VENOUS BLOOD / Unknown Venipuncture / Unknown 09/30/2020 8:45 EDT 09/30/2020 8:50 EDT us Doris Moreno MD CHEMISTRY & BLOOD GAS ORDERABLE S Final Result Performing Organization Address City/[facility]/ZIP Co de Phone Number [facility] [address] [place] [address] * (ABNORMAL) CREATININE (09/30/2020 8:45 EDT) Creatinine 0.43(L) 0.52 - 1.04 mg/dL 09/30/2020 9:09 EDT [facility] eGFR 132 >60 mL/min/1.7 3m2 09/30/2020 9:09 EDT [facility] Comment:eGFR calculated gil curtis CKD-EPI equation for non- Americans. Multiply eGFR by 1.16 for patients. Blood VENOUS BLOOD / Unknown Venipuncture / Unknown 09/30/2020 8:45 EDT 09/30/2020 8:50 EDT us Doris Moreno MD CHEMISTRY & BLOOD GAS ORDERABLE S Final Result [facility] [address] [place] [address] * BUN (09/30/2020 8:45 EDT) BUN 16 10 - 26 mg/dL 09/30/2020 9:09 EDT [facility] Blood VENOUS BLOOD / Unknown Venipuncture / Unknown 09/30/2020 8:45 EDT 09/30/2020 8:50 EDT us Doris Moreno MD CHEMISTRY & BLOOD GAS ORDERABLE S Final Result [facility] [address] [place] [address] * XR FOOT LEFT 1-2 VIEWS (09/30/2020 [...] 7:40 EDT) Hold Hold 09/30/2020 8:47 EDT [facility] Blood VENOUS BLOOD / Unknown Venipuncture / Unknown 09/30/2020 7:40 EDT 09/30/2020 7:45 EDT Doris Moreno MD LAB INFO SERVICE AND SUPPORT & PHONE RESULT Final Result [facility] [address] [place] [address] * (ABNORMAL) COMPLETE BLOOD COUNT AND DIFFERENTIAL (09/30/2020 7:40 EDT) WBC 15.61(H) 4.00 - 12.40 K/cmm 09/30/2020 8:01 [facility] RBC 4.40 3.86 - 5.04 M/cmm 09/30/2020 8:01 [facility] Hemoglobin 13.7 11.6 - 15.2 gm/dL 09/30/2020 8:01 [facility] HCT 38.6 34.9 - 44.4 % 09/30/2020 8:01 [facility] MCV 88 81 - 98 fl 09/30/2020 8:01 [facility] MCH 31.1 26.7 - 33.3 pg 09/30/2020 8:01 [facility] MCHC 35.5 32.1 - 35.9 gm/dL 09/30/2020 8:01 [facility] RDW-CV 12.6 <14.7 % 09/30/2020 8:01 [facility] RDW-SD 40.1 <50.4 fl 09/30/2020 8:01 [facility] PLT 391(H) 141 - 377 K/cmm 09/30/2020 8:01 [facility] MPV 10.0 9.5 - 12.7 fl 09/30/2020 8:01 [facility] % Neutrophils 87.2 % 09/30/2020 8:01 [facility] % Lymphocytes 9.6 % 09/30/2020 8:01 [facility] % Monocytes 2.6 % 09/30/2020 8:01 [facility] % Eosinophils 0.0 % 09/30/2020 8:01 [facility] % Basophils 0.2 % 09/30/2020 8:01 [facility] % Immature Grans 0.4 % 10/01/19 8:01 [facility] Absolute Neutrophils 13.61(H) 2.20 - 8.85 K/cmm 09/30/2020 8:01 [facility] Absolute Lymphocytes 1.50 1.09 - 3.30 K/cmm 09/30/2020 8:01 [facility] Absolute Monocytes 0.41 0.10 - 0.80 K/cmm 09/30/2020 8:01 [facility] Absolute Eosinophils 0.00(L) 0.03 - 0.61 K/cmm 09/30/2020 8:01 [facility] ABS Basophils 0.03 0.01 - 0.11 K/cmm 09/30/2020 8:01 [facility] Absolute Immature Grans 0.06 0.00 - 0.06 K/cmm 09/30/2020 8:01 EDT [facility] Type of Differential: Auto 09/30/2020 8:01 [facility] Blood VENOUS BLOOD / Unknown Venipuncture / Unknown 09/30/2020 7:40 EDT 09/30/2020 7:45 EDT us Doris Moreno MD PACKAGES & DNA PROBE ORDERABLES Final Result [facility] [address] [place] [address] * (ABNORMAL) POCT BLOOD GAS, EG6 I-STAT (09/30/2020 7:34 EDT) iSTAT pH 7.53(H) 7.35 - 7.45 09/30/2020 7:38 [facility] iSTAT pCO2 35 35 - 45 mmHg 09/30/2020 7:38 [facility] i-STAT pO2 34(L) 80 - 105 mmHg 09/30/2020 7:38 [facility] iSTAT TCO2 30(H) 23 - 27 mmol/L 09/30/2020 7:38 [facility] i-STAT O2 Saturation 74(L) 95 - 98 % 09/30/2020 7:38 [facility] Base Excess 6(H) -2 - 3 mmol/L 09/30/2020 7:38 [facility] Sample Source VENOUS 09/30/2020 7:38 [facility] soldering machine tender ID [id number] 09/30/2020 7:38 [facility] Comment (EG6) Test Performed by Respiratory. For non-arterial reference ranges, please see ISTAT procedure 09/30/2020 7:38 [facility] Comment:For arterial collect ion, [...] OF CARE TEST ORDERABLES F inal Result [facility] [address] [place] [address] * EKG 12-LEAD (09/30/2020 7:29 EDT) 09/30/2020 7:29 EDT Narrative [facility] EKG - 10/04/2020 16:24 EDT ?[facility] Emergency ? Test Date: ?2020-09-30 Pat Name: ? CRISTY LUO ?Department: ?? ED ? Room: ? AC17 Gender: ? Female ? Hand Fabric Cutter: ?? [id number] : ?1985 ? Requested By: DIAN Huizar Order Number: [id number] ? Sammie MARTÍNEZ: ?? TRACE SHAUN MARTÍNEZ ? Measurements Intervals ?[place] ? Rate: ? 70 ? P: ?36 WI: ? 139 ?QRS: ?10 QRSD: ? 88 [...] Note Carolina Dunn MD - 10/04/2020 [facility] Emergency Test Date: 2020-09-30 Pat Name: CRISTY LUO Department: ED Room: [facility] Gender: Female Hand Fabric Cutter: [id number] : 1985 Requested By: DIAN Huizar Order Number: [id number] Reading MD: CAROLINA DUNN MD Measurements Intervals [place] Rate: 70 P: 36 WI: 139 QRS: 10 QRSD: 88 T: 3 QT: 418 QTc: 452 Interpretive Statements SINUS RHYTHM WITH MARKED SINUS ARRHYTHMIA Compared to ECG 08/08/2020 19:04:21 SINUS ARRHYTHMIA now present I reviewed the tracing and have either agreed or edited the findings inthis report. Electronically Signed On 10-04-2020 16:24:06 EDT by CAROLINA RICHTER. us Doris oMreno MD CARDIAC ECG ORDERABLES Final Re sult [facility] EKG * (ABNORMAL) POCT GLUCOSE, INTERFACED (09/30/2020 7:25 EDT) Glucose, POC 316(H) 70 - 100 mg/dL 09/30/2020 7:29 EDT [facility] soldering machine tender ID [id number] 09/30/2020 7:29 EDT [facility] HN LAB POC COMMENT (GLUCOSE) Test Performed by Nursing Services 09/30/2020 7:29 EDT [facility] Blood CAPILLARY BLOOD / Unknown 09/30/2020 7:25 EDT 09/30/2020 7:29 EDT Doris oMreno MD POINT OF CARE TEST ORDERABLES F inal Result Performing Organization Address City/[facility]/ZIP Co de Phone Number [facility] [address] [place] [address] documented in this encounter Visit Diagnoses Diagnosis [...] 0930 0939 (New Bag - Prov ider: Hayely Telles RN) insulin aspart U-100 (NOVOLOG FLEXPEN) [...]
--- OUTSIDE RECORDS SUMMARY | 2024-06-03 09:06 | XMS_ITS | Encounter Summary ---
Author Organization [facility] Address [address] [place] [address] Care Team Providers Care Cashiers Supervisor Name Role Phone Unavailable Primary Care Provider Unavailabl e Reason for Visit * Reason Onset Date Comments Medications Refill 09/02/2020 Encounter Details Date Type Department Care Team (Late st Contact Info) Description 09/02/2020 Refill [facility] Endocrinology - [facility] [address] [place], [place] [id number] Sara Zafar NP [address] [facility] [address] [place] [address] Medications Refill Social History Tobacco [...] her last appointment. Screw on tips. Pharmacy [id number] - [place], [place] - [facility] [address]?[phone] Next Visit Date Visit date not found Out of Medication? Yes none left Valecnia Carrillosier 09/02/2020 12:44 documented in this encounter Plan of Treatment Not on file documented as of this encounter Visit Diagnoses Diagnosis Type 2 diabetes mellitus with hyperglycemia, with long-term current use of insulin ([facility])- Primary documented in this encounter
--- OUTSIDE RECORDS SUMMARY | 2024-06-03 09:06 | XMS_ITS | Encounter Summary ---
Author Organization [facility] Address [address] [place] [address] Care Team Providers Care Purse Maker Name Role Phone Unavailable Primary Care Provider Unavailabl e Reason for Visit * Reason Onset Date Comments Labs Only 09/12/2020 Encounter Details Date Type Department Care Team (Late st Contact Info) Description 09/12/2020 Telephone [facility] Adult Primary Care - [place] [address] [place], [place] [address] James Partida, RN Labs Only Social History [...] Telephone Encounter - James Partida - 09/12/2020 4173 EDT Incoming call from Stella. Relayed Tonja [...]
--- OUTSIDE RECORDS SUMMARY | 2024-06-03 09:06 | XMS_ITS | Encounter Summary ---
Author Organization [facility] Address [address] [place] [address] Care Team Providers Care Paint Department Supervisor Name Role Phone Unavailable Primary [...]
--- OUTSIDE RECORDS SUMMARY | 2024-06-03 09:07 | XMS_ITS | Encounter Summary ---
Author Organization [facility] Address [address] [place] [address] Care Team Providers Care Radar Operator Name Role Phone Unavailable Primary Care Provider Unavailabl e Encounter Details Date Type Department Care Team (Late st Contact Info) Description 08/14/2020 Orders Only [facility] OBGYN Services - [address] [address] Rosa Chang RN Pre-procedure lab exam (Primary [...]
--- OUTSIDE RECORDS SUMMARY | 2024-06-03 09:07 | XMS_ITS | Encounter Summary ---
Author Organization [facility] Address [address] [place] [address] Care Team Providers Care Crime Lab Analyst Name Role Phone Unavailable Primary Care [...]
--- OUTSIDE RECORDS SUMMARY | 2024-06-03 09:07 | XMS_ITS | Encounter Summary ---
Author Organization [facility] Address [address] [place] [address] Care Team Providers Care Internal Sales Name Role Phone Unavailable Primary Care [...]
--- OUTSIDE RECORDS SUMMARY | 2024-06-03 09:07 | XMS_ITS | Encounter Summary ---
Author Organization [facility] Address [address] [place] [address] Care Team Providers Care Jewel Hole Driller Name Role Phone Unavailable Primary Care Provider Unavailabl e Reason for Visit * Reason Comments Hospital Discharge Follow Up Encounter Details Date Type Department Care Team (Latest Contact Info) Description 08/14/2020 9:00 EST Office Visit [facility] Adult Primary Care - [address] [id number] Tonja Alejandro PA-C [address] [place] [address] [address] [place] [address] Type 2 diabetes mellitus with hyperosmolarity without coma, with long-term current use of insulin ([facility]) (Primary Dx); Gastroparesis Social History Tobacco Use [...] Follow Up 1 month Tonja Alejandro PA-C [facility] Adult Primary Care-[place] 08/19/2020 9:13 I spent a total of [...] coma, with long-term current use of insulin ([facility])- Primary Gastroparesis documented in this encounter Discontinued Medications Medication Sig Discontinue Reason Start Date End Da te LORazepam (ATIVAN) 0.5 mg tablet Take 1 Tab by mouth 3 times daily as needed for Anxiety. Daily Max: 1.5 mg Reorder 08/07/2020 08/14/2020 documented as of this encounter
--- OUTSIDE RECORDS SUMMARY | 2024-06-03 09:07 | XMS_ITS | Encounter Summary ---
Author Organization [facility] Address [address] [place] [address] Care Team Providers Care Motor Hotel Manager Name Role Phone Unavailable Primary Care Provider Unavailabl e Encounter Details Date Type Department Care Team (Latest Contact Info) Description 08/18/2020 16:20 EDT Phlebotomy Only [facility] - [employer] [address] [place] [address] Encounter for preprocedure screening laboratory testing for [...] Priority Date/Time Associated Diagnosis Comments ZZCOVID-19 TEST [facility] PCR STAT 08/18/2020 16:23 EDT Encounter for preprocedure screening laboratory testing for COVID-19 COVID-19 TESTING STAT 08/18/2020 16:2 3 EDT Encounter for preprocedure screening laboratory testing for COVID-19 documented in this encounter Results * COVID-19 TEST [facility] PCR (08/18/2020 16:23 EDT) Swab ENTIRE NASOPHARYNX / Unknown Swab / Unknown 08/18/2020 16:23 EDT 08/18/2020 16:23 EDT Nimisha Bay MD MICROBIOLOGY - GENERAL CLEMENTE GOLDEN Final Result [facility] [address] [place] [address] * COVID-19 TESTING (08/18/2020 16:23 EDT) COVID-19 rt-PCR Result Negative Negative 08/19/2020 15:57 EDT [facility] Comment: This test [...] developed and its performance characteristics determined by [facility]. It has not been cleared [...] testing. This test is based on the [facility] COVID-19 Emergency Use Authorization (EUA) assay, with minor modification as defined by the FDA Performed on the The [employer] Flex RT-PCR System. Performing Lab [facility] Lab 08/19/2020 15:57 EDT [facility] Swab ENTIRE NASOPHARYNX / Unknown Swab / Unknown 08/18/2020 16:23 EDT 08/18/2020 16:23 EDT us Nimisha Bay MD MICROBIOLOGY - GENERAL CLEMENTE GOLDEN Final Result [facility] [address] [place] [address] documented in this encounter Visit Diagnoses Diagnosis Encounter for preprocedure screening laboratory testing for COVID-19 documented in this encounter
--- OUTSIDE RECORDS SUMMARY | 2024-06-03 09:07 | XMS_ITS | Encounter Summary ---
Author Organization [facility] Address [address] [place] [address] Care Team Providers Care Bilingual Spanish Inbound Sales Name Role Phone Unavailable Primary Care Provider Unavailabl e Reason for Visit * Reason Onset Date Comments Surgery Scheduling 08/19/2020 Encounter Details Date Type Department Care Team (Late st Contact Info) Description 08/19/2020 Telephone [facility] OBGYN Services - [facility] [address] [place], [place] [address] Nimisha Bay MD [address] [facility] [address], [address] [place] [address] Surgery Scheduling Social History Tobacco [...]
--- OUTSIDE RECORDS SUMMARY | 2024-06-03 09:07 | XMS_ITS | Encounter Summary ---
Author Organization [facility] Address [address] [place] [address] Care Team Providers Care Professional Bass Fisherman Name Role Phone Unavailable Primary Care Provider Unavailabl e Reason for Referral * (Routine) - Receiving Office to Obtain Authorization Specialty Diagnoses / Procedures Referred By Contac t Referred To Contact [facility] [place] [address] [place] [address] Phone: tel: fax: Referral ID Status Reason Start Date Expiration Date Visits Requested Visits Authorized [id number] Receiving Office to Obtain Authorization Specialty Services Required 1 1 1 * (Routine) - Receiving Office to Obtain Authorization Specialty Diagnoses / Procedures Referred By Contac t Referred To Contact [facility] [place] [address] [place] [address] Phone: tel: fax: Referral ID Status Reason Start Date Expiration Date Visits Requested Visits Authorized [id number] Receiving Office to Obtain Authorization Specialty Services [...] [place] LAP,RMV ADNEXAL STRUCTURE Nimisha Bay MD 3 [facility] Medical Office Building, [address] [place] [phone] Phone: tel: fax: Referral ID Status Reason Start Date Expiration Date Visits Re quested Visits Authorized [id number] 06/30/2020 1 1 Encounter Details Date Type Department Care Team (Latest Contact Info) Description 08/20/2020 9:59 EDT - 08/20/2020 15:35 EDT Hospital Encounter [facility] [place] [address] [place] [id number] Nimisha Bay MD 9 [facility] Medical Office Building, [address] [place] [phone] Discharge Disposition: Home or Self Care [...] Self Senior Care documented in this encounter Progress Notes [...] 08/18/2020 14:27 PGY-4 Obstetrics and Gynecology Pager #[phone] documented in this encounter H&P Notes * [...] Egan D.O. 07/28/2020 11:05 Obstetrics/Gynecology PGY-1 Pager #[phone] documented in this encounter OR Notes * OR Surgeon - Nimisha Bay MD - 08/20/2020 1436 EDT Name: Cristy Luo :1985 Date of Service:@08/20/2020?? Surgeon: Dr. Nimisha Bay Cutter Grinder:Tonja Egan D.O., Jackie Oropeza M.D. Procedure: Laparoscopy [...] lip of the cervix grasped with the [id number] tenaculum. ?? Attention was then turned to [...] Egan D.O. 08/20/2020 15:22 Obstetrics/Gynecology PGY-1 Pager #[phone] ?? Attending note: I was present for [...] full cross sections identified. 08/29/2020 7:12 EDT [facility] Attestation There was significant resident/fellow involvement in the diagnostic evaluation of this case. By the signature below, the attending physician certifies that they have personally conducted a gross and/or microscopic examination of the described specimens and rendered or confirmed the above diagnosis. 08/29/2020 7:12 [facility] at 0712 Clinical History Unwanted fertility 08/29/2020 7:12 [facility] Gross Description A. Received [...] spear. Sectioning reveals patent, unremarkable cut surfaces. Environmental Aid sections, to include the bisected fimbria, are submitted in A1 (shorter tube) and A2 (longer tube). EUNICE BAEZ(ASCP) 08/21/2020 9:18 08/29/2020 7:12 [facility] Resident/Cash w: John Smith MD 08/29/2020 7:12 [facility] Performing Lab [facility] 08/29/2020 7:12 [facility] Scanned Images 08/29/2020 7:12 EDT [facility] Tissue BOTH FALLOPIAN TUBES / Unknown 08/20/2020 13:15 EDT 08/20/2020 15:16 EDT us Nimisha Bay MD PATHOLOGY ORDERABLES Final Result Performing Organization Address [facility] Co de Phone Number [facility] [address] [place] [address] * (ABNORMAL) POCT GLUCOSE, INTERFACED (08/20/2020 11:26 EDT) Glucose, POC 119(H) 70 - 100 mg/dL 08/20/2020 11:26 EDT [facility] hot wort [place] ID [id number] 08/20/2020 11:26 EDT [facility] HN LAB POC COMMENT (GLUCOSE) Test Performed by Nursing Services 08/20/2020 11:26 EDT [facility] Blood CAPILLARY BLOOD / Unknown 08/20/2020 11:26 EDT 08/20/2020 11:26 EDT Whit Rae MD POINT OF CARE TEST ORDERABLES Final Result Performing Organization Address [facility] de Phone Number [facility] [address] [place] [address] * TEST, URINE (08/20/2020 10:42 EDT) Test, Urine Negative Negative 08/20/2020 10:59 EDT [facility] Comment:False negative resul ts may occur in women who are beyond 5-8 weeks gestation. Diagnosis of should be based on a correlation of test results with typical clinical signs and symptoms. Urine VOIDED URINE SPECIMEN / Unknown Urine Collect / Unknown 08/20/2020 10:42 EDT 08/20/2020 10:46 EDT Whit Rae MD URINALYSIS ORDERABLES Final R esult [facility] [address] [place] [address] documented in this encounter Visit Diagnoses Diagnosis Admission for sterilization- Primary Sterilization 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 ([facility]) Type II or unspecified type diabetes [...]
--- OUTSIDE RECORDS SUMMARY | 2024-06-03 09:07 | XMS_ITS | Encounter Summary ---
Author Organization [facility] Address [address] [place] [address] Care Team Providers Care Fire Suppression Captain Name Role Phone Unavailable Primary Care Provider Unavailabl e Reason for Visit * Auth/Cert Specialty Diagnoses / Procedures Referred By Contac t Referred To Contact Diagnoses Unwanted fertility Procedures [place] LAP,RMV ADNEXAL STRUCTURE Nimisha Bay MD [address] [place] [address] Medical Office Building, [address] [place] [address] Phone: tel: fax: Referral ID Status Reason Start Date Expiration Date Visits Re quested Visits Authorized [id number] 06/30/2020 1 1 Encounter Details Date Type Department Care Team (Late st Contact Info) Description 08/20/2020 13:05 EDT Anesthesia Event [facility] Main [place] [address] [place] [address] Cece Marrufo MD [address] [phone] Jhonatan Peterson, RICA 111 [facility], [address] 2 [place] [address] Anesthesia Record Procedure Summary Procedure [...] [facility] Vitals Value Taken Time BP 130/73 [...] has a referral for therapy. ??? Diabetes ([facility]) A1c 10.3 on 11/28/2019 - poorly controlled ??? Diabetes mellitus, type 2 ([facility]) pt check [...] unspecified ??? Osteomyelitis ([facility]) of left [...] intractable ENDO/GI (+) Type 2 diabetes mellitus ([facility]) (+) Type 2 diabetes mellitus with diabetic polyneuropathy, with long-term current use of insulin ([facility]) (+) 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 ([facility]) Other (+) Osteomyelitis of great toe [...] and Staff Patient location during procedure: [place] Resident/BAKERY SUPERVISOR: Jhonatan Peterson AA Performed: resident/BAKERY SUPERVISOR/AA Indications and Patient Condition Indications for airway [...] and Staff Patient location during procedure: OR Resident/BAKERY SUPERVISOR: Jhonatan Peterson AA Performed: resident/BAKERY SUPERVISOR/AA Indications and Patient Condition Indications for airway [...]
--- OUTSIDE RECORDS SUMMARY | 2024-06-03 09:07 | XMS_ITS | Encounter Summary ---
Author Organization [facility] Address [address] [place] [address] Care Team Providers Care Relocation Commissioner Name Role Phone Unavailable Primary Care Provider Unavailabl e Reason for Visit * Reason Onset Date Comments Hospital Discharge Follow Up 08/11/2020 Encounter Details Date Type Department Care Team (Late st Contact Info) Description 08/11/2020 Telephone [facility] Adult Primary Care [address] [phone] Tonja Alejandro PA-C [address] [place] [address] [place] [phone] Hospital Discharge Follow Up Social History [...]
--- OUTSIDE RECORDS SUMMARY | 2024-06-03 09:07 | XMS_ITS | Encounter Summary ---
Author Organization [facility] Address [address] [place] [address] Care Team Providers Care Marketing Analytics Manager Name Role Phone Unavailable Primary Care Provider Unavailabl e Reason for Visit * Reason Onset Date Comments Advice Only 08/07/2020 Encounter Details Date Type Department Care Team (Late st Contact Info) Description 08/07/2020 Telephone [facility] Endocrinology - [facility] [address] [place] [address] Sara Zafar NP 62 [facility] [address] [place] [address] Advice Only Social History Tobacco [...] to the provider regarding patients insulin. Asked designer/writer to zandra High Priority. PCP paged Sara Zafar thru [facility] with no response documented in this encounter Plan of Treatment Not on file documented as of this encounter Visit Diagnoses Not on filedocumented in this encounter
--- OUTSIDE RECORDS SUMMARY | 2024-06-03 09:07 | XMS_ITS | Encounter Summary ---
Author Organization [facility] Address [address] [place] [address] Care Team Providers Care Professional Bass Fisher Name Role Phone Unavailable Primary Care Provider Unavailabl e Reason for Visit * Reason Comments Emesis Seen tuesday for n/v/ d back tonight for continued n/v/d, her pcp recommended she come in for reeval and possible scan. Pt reports diffuse abdominal pain. Encounter Details Date Type Department Care Team (Late st Contact Info) Description 08/06/2020 3:57 EST - 08/06/2020 8:59 EST Emergency [facility] Emergency Department - [facility] [address] [place] [address] Kylah Whitaker PA-C 111 [facility], Level [address] [place] [phone] Jeremaih Hein PA-C [address] [place] [phone] Non-intractable vomiting with nausea, unspecified vomiting type [...] through Care Everywhere. * Nausea and Vomiting (Nigerien) documented in this encounter Medications at Time [...] Means Destination Comment s Home or Self Custodial driving. documented in this encounter ED Notes [...] Abnormality Status --------- ------ POCT URINE DIPSTICK, CLI...[[id number]] POCT CSN BARCODE URINE D...[[id number]] Please view results for these tests on the individual orders. POCT TEST, CLINITEK ORDER Narrative: The following orders were created for panel order POCT TEST, CLINITEK ORDER. Procedure Abnormality Status --------- ------ POCT TEST, CLI...[[id number]] POCT CSN BARCODE URINE P...[[id number]] Please view results for these tests on [...] for emergent medical conditions at the [facility] on 08/06/2020 Scribe attestation: This documentation [...] No acute fracture or suspicious osseous lesion. Compensation/Benefits Specialist: No additional pathology identified. Procedure Note Broderick [...] No acute fracture or suspicious osseous lesion. Compensation/Benefits Specialist: No additional pathology identified. IMPRESSION 1. No acute abnormality identified in the abdomen or pelvis. 2. Small nonobstructing left intrarenal calculus. 3. Small hiatal hernia. I have personally reviewed the images and the above interpretation andagree with the findings. Kylah DAWSON-Shiva IMG CT ORDERABLES Final Result * LACTIC ACID (08/06/2020 5:06 EST) Lactic Acid 1.5 <=2.0 mmol/L 08/06/2020 5:29 EST [facility] Blood VENOUS BLOOD / Unknown Venipuncture / Unknown 08/06/2020 5:06 EST 08/06/2020 5:17 EST Kylah DAWSON-C CHEMISTRY & BLOOD GAS ORDERABLES Final Result Performing Organization Address [facility] Co de Phone Number [facility] [address] [place] [address] * LIPASE (08/06/2020 4:13 EST) Lipase 141 <251 U/L 08/06/2020 5:00 EST [facility] Blood VENOUS BLOOD / Unknown Venipuncture / Unknown 08/06/2020 4:13 EST 08/06/2020 4:19 EST Kylah DAWSON-C CHEMISTRY & BLOOD GAS ORDERABLES Final Result Performing Organization Address City/[facility] Co de Phone Number [facility] [address] [place] [address] * (ABNORMAL) COMPREHENSIVE METABOLIC PANEL (CMP) (08/06/2020 4:13 EST) Sodium 139 136 - 145 mEq/L 08/06/2020 5:00 [facility] Potassium 3.4(L) 3.5 - 5.0 mEq/L 08/06/2020 5:00 [facility] Comment: NOTE: Interpret with caution. Prolonged sample storage may alter the result. Chloride 99 96 - 110 mEq/L 08/06/2020 5:00 [facility] CO2 Total 25 22 - 32 mEq/L 08/06/2020 5:00 [facility] Comment: NOTE: Interpret with caution. Prolonged sample storage may alter the result. Glucose 255(H) 70 - 100 mg/dL 08/06/2020 5:00 [facility] BUN 12 10 - 26 mg/dL 08/06/2020 5:00 [facility] Creatinine 0.52 0.52 - 1.04 mg/dL 08/06/2020 5:00 [facility] eGFR 124 >60 mL/min/1.7 3m2 08/06/2020 5:00 [facility] Comment:eGFR calculated gil curtis CKD-EPI equation for non- Americans. Multiply eGFR by 1.16 for patients. Total Protein 7.0 6.3 - 8.2 g/dL 08/06/2020 5:00 [facility] Albumin 4.2 3.4 - 4.9 g/dL 08/06/2020 5:00 [facility] Alkaline Phosphatase 92 38 - 126 U/L 08/06/2020 5:00 [facility] AST 29 15 - 46 U/L 08/06/2020 5:00 [facility] ALT 23 <35 U/L 08/06/2020 5:00 [facility] Bilirubin, Total 0.6 <1.4 mg/dL 08/07/19 5:00 [facility] Calcium 9.4 8.5 - 10.5 mg/dL 08/06/2020 5:00 [facility] Calculated Calcium 9.2 8.5 - 10.5 mg/dL 08/06/2020 5:00 [facility] Blood VENOUS BLOOD / Unknown Venipuncture / Unknown 08/06/2020 4:13 EST 08/06/2020 4:19 EST Kylah Whitaker PA-C CHEMISTRY & BLOOD GAS ORDERABLES Final Result [facility] [address] [place] [address] * (ABNORMAL) COMPLETE BLOOD COUNT AND DIFFERENTIAL (08/06/2020 4:13 EST) WBC 13.81(H) 4.00 - 12.40 K/cmm 08/06/2020 5:13 [facility] RBC 4.57 3.86 - 5.04 M/cmm 08/06/2020 5:13 [facility] Hemoglobin 14.0 11.6 - 15.2 gm/dL 08/06/2020 5:13 [facility] HCT 39.4 34.9 - 44.4 % 08/06/2020 5:13 [facility] MCV 86 81 - 98 fl 08/06/2020 5:13 [facility] MCH 30.6 26.7 - 33.3 pg 08/06/2020 5:13 [facility] MCHC 35.5 32.1 - 35.9 gm/dL 08/06/2020 5:13 [facility] RDW-CV 12.1 <14.7 % 08/06/2020 5:13 [facility] RDW-SD 38.3 <50.4 fl 08/06/2020 5:13 [facility] PLT 427(H) 141 - 377 K/cmm 08/06/2020 5:13 [facility] MPV 9.9 9.5 - 12.7 fl 08/06/2020 5:13 [facility] % Neutrophils 51.5 % 08/06/2020 5:13 [facility] % Lymphocytes 36.1 % 08/06/2020 5:13 [facility] % Monocytes 9.1 % 08/06/2020 5:13 [facility] % Eosinophils 2.2 % 08/06/2020 5:13 [facility] % Basophils 0.7 % 08/06/2020 5:13 [facility] % Immature Grans 0.4 % 08/07/19 5:13 [facility] Absolute Neutrophils 7.11 2.20 - 8.85 K/cmm 08/06/2020 5:13 [facility] Absolute Lymphocytes 4.98(H) 1.09 - 3.30 K/cmm 08/06/2020 5:13 [facility] Absolute Monocytes 1.26(H) 0.10 - 0.80 K/cmm 08/06/2020 5:13 [facility] Absolute Eosinophils 0.31 0.03 - 0.61 K/cmm 08/06/2020 5:13 [facility] ABS Basophils 0.10 0.01 - 0.11 K/cmm 08/06/2020 5:13 [facility] Absolute Immature Grans 0.05 0.00 - 0.06 K/cmm 08/06/2020 5:13 [facility] Type of Differential: Auto 08/06/2020 5:13 [facility] Blood VENOUS BLOOD / Unknown Venipuncture / Unknown 08/06/2020 4:13 EST 08/06/2020 4:19 EST Kylah Whitaker PA-C PACKAGES & DNA PROBE ORDERABLES Final Result Performing Organization Address City/[facility] Co de Phone Number [facility] [address] [place] [address] * HOLD SST (08/06/2020 4:13 EST) Hold Hold 08/06/2020 5:32 EST [facility] Blood VENOUS BLOOD / Unknown Venipuncture / Unknown 08/06/2020 4:13 EST 08/06/2020 4:19 EST Kylah Whitaker PA-C LAB INFO SERVICE AND SUPPORT & P TAZ RESULT Final Result Performing Organization Address City/[facility]/ZIP Co de Phone Number [facility] [address] [place] [address] * HOLD LAVENDER TOP (08/06/2020 4:13 EST) Hold Hold 08/06/2020 5:32 EST [facility] Blood VENOUS BLOOD / Unknown Venipuncture / Unknown 08/06/2020 4:13 EST 08/06/2020 4:19 EST us Kylah Whitaker PA-C LAB INFO SERVICE AND SUPPORT & P TAZ RESULT Final Result [facility] [address] [place] [address] * HOLD GREEN TOP (08/06/2020 4:13 EST) Hold Hold 08/06/2020 5:32 EST [facility] Blood VENOUS BLOOD / Unknown Venipuncture / Unknown 08/06/2020 4:13 EST 08/06/2020 4:19 EST us Kylah Whitaker PA-C LAB INFO SERVICE AND SUPPORT & P TAZ RESULT Final Result Performing Organization Address City/[facility]/ZIP Co de Phone Number [facility] [address] [place] [address] * HOLD BLUE TOP (08/06/2020 4:13 EST) Hold Hold 08/06/2020 5:32 EST [facility] Blood VENOUS BLOOD / Unknown Venipuncture / Unknown 08/06/2020 4:13 EST 08/06/2020 4:19 EST us Kylah Sarayow PA-C LAB INFO SERVICE AND SUPPORT & P TAZ RESULT Final Result Performing Organization Address City/[facility]/ZIP Co de Phone Number [facility] [address] [place] [address] documented in this encounter Visit Diagnoses Diagnosis [...]
--- OUTSIDE RECORDS SUMMARY | 2024-06-03 09:07 | XMS_ITS | Encounter Summary ---
Author Organization [facility] Address [address] [place] [address] Care Team Providers Care Wet Finisher Wool Name Role Phone Unavailable Primary Care Provider Unavailabl e Reason for Visit * Reason Comments Diabetes Encounter Details Date Type Department Care Team (Latest Contact Info) Description 08/27/2020 10:30 EDT Office Visit [facility] Endocrinology - [facility] [address] [place] [address] Sara Zafar NP 62 [facility] [address] [place] [address] Anxiety and depression (Primary Dx); Gastroparesis; 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 ([facility]) Social History Tobacco Use Types Packs/Day Years [...] 08/27/2020 10:30 EDT Send August BS to [email or web address] Apply for Freestyle Vignesh CGM. Carson's Nir Ozempic 0.25 mg weekly for 4 weeks.. If tolerated increased to 0.5 mg weekly for 4 weeks and athn To 1.0 weekly. If severe nausea drop to lower dose for another month and retry. Try to avoid bolusing between snacks. RD referral F/U in 4 months with new PRODUCTION AIDE. documented in this encounter Ordered Prescriptions Prescription [...] APRN - 08/27/2020 1030 EDT Subjective: [facility] F/U Note T Patient ID: [...] trimester miscarriages, most recently terminated a at [facility] 10/28/2019. Recurrent loss is attributed to to poorly controlled type 2 diabetes in conjunction with tobacco dependence. She saw AUTOMOBILE ENGINE ASSEMBLER on 11/03/2018, and was advised to get [...] siblings, knows about 2, no DM. SH: /learning support teacher, and she share a car. Previous [...] to [email or web address] 3. Kathleen Medellin CGM. ordered [facility] 4. Try to avoid bolusing between snacks. 5. RD referral 6. Consider using 1/2 unit pen for Novolog. 6. F/U in 4 months with new PRODUCTION AIDE as I will be retiring in October. [...] mellitus with left diabetic foot ulcer ([facility]) Type II or unspecified type diabetes mellitus with other specified manifestations, not stated as uncontrolled documented in this encounter Historical Medications * This list may reflect changes made after this encounter. gabapentin (NEURONTIN) 100 mg capsule Take 100 mg by mouth 2 times daily before breakfast and lunch. 1 added in this encounter
--- OUTSIDE RECORDS SUMMARY | 2024-06-03 09:07 | XMS_ITS | Encounter Summary ---
Author Organization [facility] Address [address] [place] [address] Care Team Providers Care Sight Mounter Name Role Phone Unavailable Primary Care Provider Unavailabl e Reason for Visit * Reason Onset Date Comments Hospital Discharge Follow Up 08/21/2020 Encounter Details Date Type Department Care Team (Late st Contact Info) Description 08/21/[address] [facility] Adult Primary Care - [address] [phone] Benita Thompson, MARCELO Hospital Discharge Follow Up [...] Encounter - Benita Thompson RN - 08/21/2020 7337 EDT Hospital Discharge Follow Up: Same Day Surgery 08/20/20 Risk Assessment: high 44 Reason for admission: Laparoscopic bilateral salpingectomy Symptoms improving? Pain level 8.5-9/10. She only tolerates OTC Tylenol. Patient is aware to contact OBGYN for pain management. Discharge instructions available? yes Medications Reviewed/prescriptions filled? yes -WHITE SUGAR SUPERVISOR medications resumed Support at home? Yes-spouse Home [...]
--- OUTSIDE RECORDS SUMMARY | 2024-06-03 09:07 | XMS_ITS | Encounter Summary ---
Author Organization [facility] Address [address] [place] [id number] Care Team Providers Care Web Marketing Analyst Name Role Phone Unavailable Primary Care Provider Unavailabl e Reason for Visit * Auth/Cert Specialty Diagnoses / Procedures Referred By Contac t Referred To Contact Diagnoses Unwanted fertility Procedures NM LAP,RMV ADNEXAL STRUCTURE Nimisha Bay MD [address] [place] [address] Medical Office Building, [address] [place] [address] Phone: tel: fax: Referral ID Status Reason Start Date Expiration Date Visits Re quested Visits Authorized [id number] 06/30/2020 1 1 Encounter Details Date Type Department Care Team (Late st Contact Info) Description 08/20/2020 12:00 EDT - 08/20/2020 14:55 EDT Surgery [facility] OR [address] [place] [address] Nimisha Bay MD [address] [place] [address] Medical Office Building, [address] [place] [address] Laparoscopic Bilateral Salpingectomy [10129 (CPT??)] Surgery Details Date/Time Status Location OR Service Patient Class Case Cl ass Case Type Trauma Case? 08/20/2020 1200 Posted [facility] OR [address] Outpatient Surgery H - Elective Panel [...] mL 3 12/04/2019 2 lancets One Touch DelPresentigo or other brand compatible with lancing device [...] or Self [place] documented in this encounter Progress Notes * [...] 08/18/2020 14:27 PGY-4 Obstetrics and Gynecology Pager #[phone] documented in this encounter H&P Notes * [...] Egan D.O. 07/28/2020 11:05 Obstetrics/Gynecology PGY-1 Pager #[phone] documented in this encounter OR Notes * OR Surgeon - Nimisha Bay MD - 08/20/2020 1656 EDT Name: Cristy Luo :1985 Date of Service:@08/20/2020?? Surgeon: Dr. Nimisha Bay Beer Brewer:Tonja Egan D.O., Jackie Oropeza M.D. Procedure: Laparoscopy [...] lip of the cervix grasped with the EngineLablka tenaculum. ?? Attention was then turned to [...] Egan D.O. 08/20/2020 15:22 Obstetrics/Gynecology PGY-1 Pager #[phone] ?? Attending note: I was present for [...] full cross sections identified. 08/29/2020 7:12 T [facility] Attestation There was significant resident/fellow involvement in the diagnostic evaluation of this case. By the signature below, the attending physician certifies that they have personally conducted a gross and/or microscopic examination of the described specimens and rendered or confirmed the above diagnosis. 08/29/2020 7:12 [facility] at 0712 Clinical History Unwanted fertility 08/29/2020 7:12 [facility] Gross Description A. Received [...] spear. Sectioning reveals patent, unremarkable cut surfaces. Plastic Printer sections, to include the bisected fimbria, are submitted in A1 (shorter tube) and A2 (longer tube). EUNICE BAEZ(ASCP) 08/21/2020 9:18 08/29/2020 7:12 T [facility] Resident/Cash w: John Smith MD 08/29/2020 7:12 EDT [facility] Performing Lab [facility] 08/29/2020 7:12 EDT [facility] Scanned Images 08/29/2020 7:12 EDT [facility] Tissue BOTH FALLOPIAN TUBES / Unknown 08/20/2020 13:15 EDT 08/20/2020 15:16 EDT us Nimisha Bay MD PATHOLOGY ORDERABLES Final Result Performing Organization Address City/[facility]/ZIP Co de Phone Number [facility] [address] [place] [address] * (ABNORMAL) POCT GLUCOSE, INTERFACED (08/20/2020 11:26 EDT) Glucose, POC 119(H) 70 - 100 mg/dL 08/20/2020 11:26 EDT [facility] program aide group work ID [id number] 08/20/2020 11:26 EDT [facility] HN LAB POC COMMENT (GLUCOSE) Test Performed by Nursing Services 08/20/2020 11:26 EDT [facility] Blood CAPILLARY BLOOD / Unknown 08/20/2020 11:26 EDT 08/20/2020 11:26 EDT us Whit Rae MD POINT OF CARE TEST ORDERABLES Final Result Performing Organization Address City/[facility]/ZIP Co de Phone Number [facility] [address] [place] [address] * TEST, URINE (08/20/2020 10:42 EDT) Test, Urine Negative Negative 08/20/2020 10:59 EDT [facility] Comment:False negative resul ts may occur in women who are beyond 5-8 weeks gestation. Diagnosis of should be based on a correlation of test results with typical clinical signs and symptoms. 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
--- OUTSIDE RECORDS SUMMARY | 2024-06-03 09:07 | XMS_ITS | Encounter Summary ---
Author Organization [facility] Address [address] [place] [address] Care Team Providers Care Process Architect Name Role Phone Unavailable Primary Care [...]
--- OUTSIDE RECORDS SUMMARY | 2024-06-03 09:07 | XMS_ITS | Encounter Summary ---
Author Organization [facility] Address [address] [place] [address] Care Team Providers Care Automobile Service Station Mechanic Name Role Phone Unavailable Primary Care Provider Unavailabl e Reason for Visit * Reason Onset Date Comments Paperwork request 08/29/2020 paperwork for adoption Encounter Details Date Type Department Care Team (Late st Contact Info) Description 08/29/2020 Telephone [facility] Adult Primary Care - [address] [id number] Tonja Alejandro PA-C [address] [place] [address] [place] [phone] Paperwork request (paperwork for adoption) Social [...] scheduled tomorrow west side of clinic. will pear picker paperwork then for both. * Telephone Encounter - Tonja Alejandro PA-C - 08/29/2020 1611 EDT Form filled out. Will place in [facility] box to be sent out. * Telephone [...]
--- OUTSIDE RECORDS SUMMARY | 2024-06-03 09:07 | XMS_ITS | Encounter Summary ---
Author Organization [facility] Address [address] [place] [address] Care Team Providers Care Advertising Vice President Name Role Phone Unavailable Primary [...]
--- OUTSIDE RECORDS SUMMARY | 2024-06-03 09:07 | XMS_ITS | Encounter Summary ---
Author Organization [facility] Address [address] [place] [address] Care Team Providers Care Senior Business Objects Developer Name Role Phone Unavailable Primary Care Provider Unavailabl e Reason for Visit * Reason Onset Date Comments Procedure 08/18/2020 Encounter Details Date Type Department Care Team (Late st Contact Info) Description 08/18/2020 Orders Only [facility] - [facility] [address] [place], [place] [id number] Nimisha Bay MD [address] [facility] Medical Office Building, [address] [place] [address] Encounter for preprocedure screening laboratory [...] rt-PCR Result Negative Negative 08/19/2020 15:57 EDT [facility] Comment: This test has [...] developed and its performance characteristics determined by [facility]. It has not been cleared or [...] testing. This test is based on the [facility] COVID-19 Emergency Use Authorization (EUA) assay, with minor modification as defined by the FDA Performed on the Syanduso 7 Flex RT-PCR System. Performing Lab [facility] 08/19/2020 15:57 EDT [facility] Swab ENTIRE NASOPHARYNX / Unknown Swab / Unknown 08/18/2020 16:23 EDT 08/18/2020 16:23 EDT us Nimisha Bay MD MICROBIOLOGY - GENERAL CLEMENTE GOLDEN Final Result [facility] [address] [place] [address] documented in this encounter Visit Diagnoses Diagnosis Encounter for preprocedure screening laboratory testing for COVID-19- Primary documented in this encounter
--- OUTSIDE RECORDS SUMMARY | 2024-06-03 09:07 | XMS_ITS | Encounter Summary ---
Author Organization [facility] Address [address] [place] [address] Care Team Providers Care Oil Laboratory Analyst Name Role Phone Unavailable Primary Care Provider Unavailabl e Reason for Referral * Radiology Services (Routine) - Closed Specialty Diagnoses / Procedures Referred By Contac t Referred To Contact Nuclear Medicine Diagnoses Generalized abdominal pain Emesis, persistent Type 2 diabetes mellitus with hyperosmolarity without coma, with long-term current use of insulin ([facility]) Procedures NM GASTRIC EMPTYING SOLID Broderick Irene MD Phone: tel: fax: Referral ID Status Reason Start Date Expiration Date Visits Re quested Visits Authorized [id number] Closed 08/10/2020 1 1 Reason for Visit [...] Expiration Date Visits Re quested Visits Authorized [id number] 1 1 Encounter Details Date Type Department Care Team (Late st Contact Info) Description 08/08/2020 18:57 EST - 08/10/2020 13:56 EST Hospital Encounter [facility] General Medicine Unit [address] [place] [address] Elise Charles MD 111 [facility], Level [address] [place] [address] Keshav Dumont MD [address] [address] Bouchra Costello MD [address] [address] Generalized abdominal pain (Primary Dx); Emesis, persistent; Type 2 diabetes mellitus with hyperosmolarity without coma, with long-term current use of insulin ([facility]); Dehydration; Gastroparesis Discharge Disposition: Home or Self [...] Niesha eYn RN * Do you have serious difficulty [...] LR. 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 [...] Component Value Units Date/Time Bacterial Culture, Blood [[id number]] Collected: 08/08/202058 Lab Status: In process Specimen: Blood, Venous Updated: 08/08/202116 Bacterial Culture, Blood [[id number]] Collected: 08/08/20 2100 Lab Status: In process Specimen: Blood, Venous Updated: 08/08/202116 Upcoming Appointments Aug 12, 2020 10:30 PAT Call with [facility] PAT CALL ROOM 4 [facility] Pre-Surgical Testing (--) [address] [facility] [address] Aug 17, 2020 9:00 Mobile Lab Testing with [facility] JR ALICEA MOBILE ([facility] All Departments) [address] [place] [id number] Health Sciences Manager: Review appointment date and time above. Arrival Instructions: Before I let you go, I need to read you a set of instructions. Please provide me with your full attention. The testing site is located at [address] [place] [address]. When you pull into the entrance stay [...] Visit with Sara Zafar APRN [facility] Endocrinology - [facility] (--) [address] [facility] [address] Sep 04, 2020 16:15 (Arrive by 16:00) Post Op Visit with Clarke Joseph MD [facility] Women's Services [facility] (--) [address] [facility] [address] Sep 10, 2020 15:00 Office Visit with Elza Navarro DPM [facility] Foot & Ankle Program - [facility] (--) [address] [facility] [address] Follow-up appointments and procedures Amb Consult/Follow Up [...] Irene DO Internal Medicine PGY-1 Cortext preferred, #[id number] (via PAS) 08/10/20 11:11 Attestation: Pt seen and examined. I have reviewed Dr. Irene's note and agree with his summary asoutlined above. DOS 08/10/2020. Bouchra Costello MD, MPH documented in this encounter Discharge Instructions * Discharge Instr - AVS First Page* Broderick Irene MD - 08/10/2020 8:24 EST Please follow-up with your PCP as soon as able Please follow-up with your manager respiratory care We have ordered you a Gastric Emptying [...] concerns. Thank you for choosing [facility] for your care! documented in this [...] Notes * Peggy Lamas FNP - 08/09/2020 7218 EST Initial Case Management/Social Work Assessment and Discharge Plan/Readmission Risk Assessment REASON FOR ADMISSION: Generalized abdominal pain Patient understands reason for admission: Yes PATIENT INFO VERIFIED: PCP Type of housing (single family, condo, apartment, mcfp, single room occupancy, ESD funded hotel room, group intermediate) - duplex Who does the patient live with? Spouse and roommate Does the patient have access to their own bedroom/bathroom/kitchen - or is it shared with others? shared Name of housing complex (ex [employer] [facility], [facility], etc)- N/A Housing Authority/Managing Organization - N/A Community Care Providers (upper caser, [facility] nurse, etc) name and contact information- [...] For Finances: No TRANSPORTATION: Transportation: Family CULTURAL, MORAVIAN and/or LANGUAGE factors affecting health care/discharge planning: [...] device: None Community Services: Home health, MOW, [facility]-none of one time a week Will [...] Services: None DME Provider: None [id number] [place], [place] - [address] [facility] [address] [facility] [address] [facility] - [place], [place] - [address] [address] Home Health: not prior to admission Other: none POST HOSPITAL TRANSITION PLAN: Home with support from spouse Map Drafter spoke to the patient's spouse. No home health needs identified at this time. Her spouse can transport her home when she is medically ready for discharge. PEGGY LAMAS RN CM MSN 08/09/2020 14:44 item repair manager * Bouchra Costello MD - 08/09/2020 [...] this morning. Tolerated a couple bites of spanish muffin as well as taking liquid PO [...] / drinking now - Push PO fluids --[place] 10 QID prn --Zofran 4 mg Q 8 prn - Consider outpatient EGD - Would likely benefit from gastric emptying study however unfortunately they are not offered on the weekends. If she continues to improve at her current rate will likely defer to outpatient. ?? #T2DM: A1c 9.7 07/28/20 --Continue dose reduced glargine 30 (from commercial shrimping captain 40) --Hold mealtime insulin while not taking PO --SSI --Gabapentin 100 BID and 300 at bedtime ?? #Anxiety: --commercial shrimping captain lorazepam 0.5 mg TID prn Code [...] documented in this encounter H&P Notes * Mevrin Kamara MD - 08/09/2020 0029 EST Medicine [...] told years ago ??? Depression ??? Diabetes ([facility]) A1c 10.3 on 11/28/2019 - poorly [...] at bedtime. ) ??? 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 Initially concern for AMS but LP [...] conditions at the [facility] on 08/08/2020. This note was [...] She has had two visits to the [facility] ED prior to today for similar [...] and repeat procedure Alternatives discussed: No treatment Clayton protocol: Procedure explained and questions answered to [...] for UTI. The patient presents to the [facility] ED endorsing abdominal pain accompanied by nausea w/emesis since early Tuesday morning. Of note, the patient has been evaluated at the [facility] ED twice this week prior to [...] Goal: Care Plan Documentation Flowsheets (Taken 08/10/2020 2136) Area of Focus: Pain/ Comfort Goal This [...] for solid food. References: Manny et al. [place] Journal of Gastroenterology 2000. Kev et al. Gastroenterology 2006 Roshni et al. [place] Journal of Gastroenterology 2006. Narrative 09/09/2020 16:10 [...] for solid food. References: Toiliana et al. [place] Journal of Gastroenterology 2000. Kev et al. Gastroenterology 2006 Roshni et al. [place] Journal of Gastroenterology 2006. us Broderick Irene MD IMG NM ORDERABLES Final Resul t * ECG REPORT - SCANNED (08/25/2020 13:23 EDT) 08/25/2020 13:2 3 EDT us Scan 2 Rope Making Machine Operator PROCEDURE/MINOR SURGICAL OR DERABLES Final Result * (ABNORMAL) POCT GLUCOSE, INTERFACED (08/10/2020 11:56 EST) Glucose, POC 157(H) 70 - 100 mg/dL 08/10/2020 12:01 EST [facility] content management consultant ID [id number] 08/10/2020 12:01 EST [facility] HN LAB POC COMMENT (GLUCOSE) Test Performed by Nursing Services 08/10/2020 12:01 EST [facility] Blood CAPILLARY BLOOD / Unknown 08/10/2020 11:56 EST 08/10/2020 12:01 EST us Mervin Kamara MD POINT OF CARE TEST ORDERABLES F inal Result [facility] [address] [place] [id number] * (ABNORMAL) POCT GLUCOSE, INTERFACED (08/10/2020 7:13 EST) Glucose, POC 195(H) 70 - 100 mg/dL 08/10/2020 7:15 EST [facility] content management consultant ID [id number] 08/10/2020 7:15 EST [facility] HN LAB POC COMMENT (GLUCOSE) Test Performed by Nursing Services 08/10/2020 7:15 EST [facility] Blood CAPILLARY BLOOD / Unknown 08/10/2020 7:13 EST 08/10/2020 7:15 EST Mervin Kamara MD POINT OF CARE TEST ORDERABLES F inal Result [facility] [address] [place] [address] * CREATININE (08/10/2020 6:39 EST) Creatinine 0.60 0.52 - 1.04 mg/dL 08/10/2020 7:52 EST [facility] eGFR 118 >60 mL/min/1.7 3m2 08/10/2020 7:52 EST [facility] Comment:eGFR calculated gil curtis CKD-EPI equation for non- Americans. Multiply eGFR by 1.16 for patients. Blood VENOUS BLOOD / Unknown Venipuncture / Unknown 08/10/2020 6:39 EST 08/10/2020 7:22 EST Mervin Kamara MD CHEMISTRY & BLOOD GAS ORDERABLE S Final Result Performing Organization Address [facility] Co de Phone Number [facility] [address] [place] [address] * ELECTROLYTES (08/10/2020 6:39 EST) Sodium 138 136 - 145 mEq/L 08/10/2020 7:52 EST [facility] Potassium 3.7 3.5 - 5.0 mEq/L 08/10/2020 7:52 EST [facility] Chloride 96 96 - 110 mEq/L 08/10/2020 7:52 [facility] CO2 Total 31 22 - 32 mEq/L 08/10/2020 7:52 EST [facility] Blood VENOUS BLOOD / Unknown Venipuncture / Unknown 08/10/2020 6:39 EST 08/10/2020 7:22 EST Mervin Kamara MD CHEMISTRY & BLOOD GAS ORDERABLE S Final Result [facility] [address] [place] [address] * (ABNORMAL) COMPLETE BLOOD COUNT (08/10/2020 6:39 EST) WBC 10.21 4.00 - 12.40 K/cmm 08/10/2020 7:13 [facility] RBC 4.70 3.86 - 5.04 M/cmm 08/10/2020 7:13 [facility] Hemoglobin 14.6 11.6 - 15.2 gm/dL 08/10/2020 7:13 [facility] HCT 40.3 34.9 - 44.4 % 08/10/2020 7:13 [facility] MCV 86 81 - 98 fl 08/10/2020 7:13 [facility] MCH 31.1 26.7 - 33.3 pg 08/10/2020 7:13 [facility] MCHC 36.2(H) 32.1 - 35.9 gm/dL 08/10/2020 7:13 [facility] RDW-CV 12.0 <14.7 % 08/10/2020 7:13 [facility] RDW-SD 37.5 <50.4 fl 08/10/2020 7:13 [facility] PLT 343 141 - 377 K/cmm 08/10/2020 7:13 [facility] MPV 9.8 9.5 - 12.7 fl 08/10/2020 7:13 [facility] Blood VENOUS BLOOD / Unknown Venipuncture / Unknown 08/10/2020 6:39 EST 08/10/2020 7:00 EST us Mervin Kamara MD HEMATOLOGY & PF4 ORDERABLES Fin al Result [facility] [address] [place] [address] * (ABNORMAL) POCT GLUCOSE, INTERFACED (08/09/2020 20:46 EST) Glucose, POC 218(H) 70 - 100 mg/dL 08/09/2020 20:54 [facility] content management consultant ID [id number] 08/09/2020 20:54 [facility] HN LAB POC COMMENT (GLUCOSE) Test Performed by Nursing Services 08/09/2020 20:54 [facility] Blood CAPILLARY BLOOD / Unknown 08/09/2020 20:46 EST 08/09/2020 20:54 EST Mervin Kamara MD POINT OF CARE TEST ORDERABLES F inal Result Performing Organization Address City/[facility]/ZIP Co de Phone Number [facility] [address] [place] [address] * (ABNORMAL) POCT GLUCOSE, INTERFACED (08/09/2020 17:06 EST) Glucose, POC 209(H) 70 - 100 mg/dL 08/09/2020 17:11 [facility] content management consultant ID [id number] 08/09/2020 17:11 [facility] HN LAB POC COMMENT (GLUCOSE) Test Performed by Nursing Services 08/09/2020 17:11 [facility] Blood CAPILLARY BLOOD / Unknown 08/09/2020 17:06 EST 08/09/2020 17:10 EST Mervin Kamara MD POINT OF CARE TEST ORDERABLES F inal Result Performing Organization Address City/[facility]/ZIP Co de Phone Number [facility] [address] [place] [address] * (ABNORMAL) POCT GLUCOSE, INTERFACED (08/09/2020 13:22 EST) Glucose, POC 244(H) 70 - 100 mg/dL 08/09/2020 13:24 [facility] content management consultant ID [id number] 08/09/2020 13:24 [facility] HN LAB POC COMMENT (GLUCOSE) Test Performed by Nursing Services 08/09/2020 13:24 [facility] Blood CAPILLARY BLOOD / Unknown 08/09/2020 13:22 EST 08/09/2020 13:24 EST us Mervin Kamara MD POINT OF CARE TEST ORDERABLES F inal Result [facility] [address] [place] [address] * (ABNORMAL) POCT GLUCOSE, INTERFACED (08/09/2020 9:23 EST) Glucose, POC 179(H) 70 - 100 mg/dL 08/09/2020 9:24 EST [facility] content management consultant ID [id number] 08/09/2020 9:24 EST [facility] HN LAB POC COMMENT (GLUCOSE) Test Performed by Nursing Services 08/09/2020 9:24 EST [facility] Blood CAPILLARY BLOOD / Unknown 08/09/2020 9:23 EST 08/09/2020 9:24 EST us Keshav Dumont MD POINT OF CARE TEST ORDERABL ES Final Result Performing Organization Address [facility] Co de Phone Number [facility] [address] [place] [address] * (ABNORMAL) CREATININE (08/09/2020 7:04 EST) Creatinine 0.47(L) 0.52 - 1.04 mg/dL 08/09/2020 8:32 EST [facility] eGFR 128 >60 mL/min/1.7 3m2 08/09/2020 8:32 EST [facility] Comment:eGFR calculated gil curtis CKD-EPI equation for non- Americans. Multiply eGFR by 1.16 for patients. Blood VENOUS BLOOD / Unknown Venipuncture / Unknown 08/09/2020 7:04 EST 08/09/2020 7:58 EST us Mervin Kamara MD CHEMISTRY & BLOOD GAS ORDERABLE S Final Result Performing Organization Address City/[facility]/ZIP Co de Phone Number [facility] [address] [place] [address] * (ABNORMAL) ELECTROLYTES (08/09/2020 7:04 EST) Sodium 134(L) 136 - 145 mEq/L 08/09/2020 8:32 [facility] Potassium 3.4(L) 3.5 - 5.0 mEq/L 08/09/2020 8:32 [facility] Chloride 95(L) 96 - 110 mEq/L 08/09/2020 8:32 [facility] CO2 Total 30 22 - 32 mEq/L 08/09/2020 8:32 [facility] Blood VENOUS BLOOD / Unknown Venipuncture / Unknown 08/09/2020 7:04 EST 08/09/2020 7:58 EST us Mervin Kamara MD CHEMISTRY & BLOOD GAS ORDERABLE S Final Result Performing Organization Address City/State/[facility] Co de Phone Number [facility] [address] [place] [address] * (ABNORMAL) COMPLETE BLOOD COUNT (08/09/2020 7:04 EST) WBC 11.82 4.00 - 12.40 K/cmm 08/09/2020 7:42 [facility] RBC 4.31 3.86 - 5.04 M/cmm 08/09/2020 7:42 [facility] Hemoglobin 13.3 11.6 - 15.2 gm/dL 08/09/2020 7:42 [facility] HCT 36.3 34.9 - 44.4 % 08/09/2020 7:42 [facility] MCV 84 81 - 98 fl 08/09/2020 7:42 [facility] MCH 30.9 26.7 - 33.3 pg 08/09/2020 7:42 [facility] MCHC 36.6(H) 32.1 - 35.9 gm/dL 08/09/2020 7:42 [facility] RDW-CV 11.9 <14.7 % 08/09/2020 7:42 [facility] RDW-SD 36.4 <50.4 fl 08/09/2020 7:42 [facility] PLT 340 141 - 377 K/cmm 08/09/2020 7:42 [facility] MPV 9.7 9.5 - 12.7 fl 08/09/2020 7:42 [facility] Blood VENOUS BLOOD / Unknown Venipuncture / Unknown 08/09/2020 7:04 EST 08/09/2020 7:29 EST us Mervin Kamara MD HEMATOLOGY & PF4 ORDERABLES Fin al Result Performing Organization Address City/[facility]/ZIP Co de Phone Number [facility] [address] [place] [address] * (ABNORMAL) POCT GLUCOSE, INTERFACED (08/09/2020 4:21 EST) Glucose, POC 219(H) 70 - 100 mg/dL 08/09/2020 7:22 [facility] content management consultant ID [id number] 08/09/2020 7:22 [facility] HN LAB POC COMMENT (GLUCOSE) Test Performed by Nursing Services 08/09/2020 7:22 [facility] Blood CAPILLARY BLOOD / Unknown 08/09/2020 4:21 EST 08/09/2020 7:22 EST us Keshav Dumont MD POINT OF CARE TEST ORDERABL ES Final Result Performing Organization Address City/[facility]/ZIP Co de Phone Number [facility] [address] [place] [address] * (ABNORMAL) POCT GLUCOSE, INTERFACED (08/09/2020 1:47 EST) Glucose, POC 173(H) 70 - 100 mg/dL 08/09/2020 7:16 [facility] content management consultant ID [id number] 08/09/2020 7:16 [facility] HN LAB POC COMMENT (GLUCOSE) Test Performed by Nursing Services 08/09/2020 7:16 [facility] Blood CAPILLARY BLOOD / Unknown 08/09/2020 1:47 EST 08/09/2020 7:16 EST Mervin Kamara MD POINT OF CARE TEST ORDERABLES F inal Result Performing Organization Address City/[facility]/ZIP Co de Phone Number [facility] [address] [place] [address] * HN LAB CELL COUNT, CSF (08/08/2020 23:12 EST) RBC, CSF <1 /cmm 08/08/2020 23:43 EST [facility] Nucleated Cells, CSF <1 0 - 5 /cmm 08/08/2020 23:43 [facility] Total Volume CSF 4.8 ml 08/08/2020 23:43 [facility] Tube Cntd. 4 08/08/2020 23:43 [facility] Comment, CSF Clear and colorless 08/08/2020 23:43 [facility] Tube Vol. 1.2 ml 08/08/2020 23:43 [facility] Fluid CEREBROSPINAL FLUID SPECIMEN / Unknown 08/08/2020 23:12 EST 08/08/2020 23:22 EST Elise Charles MD HEMATOLOGY & PF4 ORDERABLE S Final Result Performing Organization Address City/[facility]/ZIP Co de Phone Number [facility] [address] [place] [address] * BACTERIAL CULTURE/SMEAR (08/08/2020 23:12 EST) Organism ID No Growth 08/10/2020 8:49 EST [facility] Smear No Neutrophils Seen 08/10/2020 8:49 EST [facility] Smear No bacteria seen 08/10/2020 8:49 EST [facility] Fluid CEREBROSPINAL FLUID SPECIMEN / Unknown 08/08/2020 23:12 EST 08/08/2020 23:22 EST us Elise Charles MD MICROBIOLOGY - GENERAL ORD ERABLES Final Result [facility] [address] [place] [address] * (ABNORMAL) TOTAL PROTEIN, CSF (08/08/2020 23:12 EST) Total Protein, CSF 55(H) 12 - 45 mg/dL 08/09/2020 0:00 EST [facility] Fluid CEREBROSPINAL FLUID SPECIMEN / Unknown 08/08/2020 23:12 EST 08/08/2020 23:22 EST us Elise Charles MD GEN LAB UNIT COLLECT ORDER HAILEY Final Result Performing Organization Address City/[facility]/ZIP Co de Phone Number [facility] [address] [place] [address] * GLUCOSE CSF (08/08/2020 23:12 EST) Glucose, CSF 126 See Note mg/dL 08/09/2020 0:00 EST [facility] Comment: NOTE: Reference range for Glucose in CSF: 60% - 80% of the Serum/Plasma Glucose Fluid CEREBROSPINAL FLUID SPECIMEN / Unknown 08/08/2020 23:12 EST 08/08/2020 23:22 EST Elise Charles MD GEN LAB UNIT COLLECT ORDER HAILEY Final Result Performing Organization Address City/[facility]/ZIP Co de Phone Number [facility] [address] [place] [address] * CELL COUNT TUBE 1, CSF - RBC ONLY, INDICATED FOR A BLOODY TAP (08/08/2020 23:12 EST) RBC, CSF Tube#1 <1 /cmm 08/08/2020 23:43 EST [facility] Specimen Volume 1.2 ml 08/08/2020 23:43 EST [facility] Fluid CEREBROSPINAL FLUID SPECIMEN / Unknown 08/08/2020 23:12 EST 08/08/2020 23:22 EST us Elise Charles MD GEN LAB UNIT COLLECT ORDER HAILEY Final Result Performing Organization Address [facility] Co de Phone Number [facility] [address] [place] [address] * TEST, URINE (08/08/2020 22:32 EST) Test, Urine Negative Negative 08/09/2020 1:36 [facility] Comment:False negative resul ts may occur in women who are beyond 5-8 weeks gestation. Diagnosis of should be based on a correlation of test results with typical clinical signs and symptoms. Urine URINE SPECIMEN COLLECTION, CLEAN CATCH / Unknown Urine Collect / Unknown 08/08/2020 22:32 EST 08/08/2020 22:34 EST us Keshav Dumont MD URINALYSIS ORDERABLES Final Result Performing Organization Address [facility] [facility] de Phone Number [facility] [address] [place] [address] * (ABNORMAL) URINE CHEMICAL (DIP) & SEDIMENT (MICRO) WITH REFLEX TO CULTURE (08/08/2020 22:32 EST) Color UA Yellow Colorless, Yellow 08/08/2020 23:01 [facility] Clarity UA Hazy(A) Clear 08/08/2020 23:01 [facility] Glucose UA Trace(A) Negative 08/08/2020 23:01 [facility] Bilirubin UA Negative Negative 08/08/2020 23:01 [facility] Ketones UA 3+(AA) Negative 08/08/2020 23:01 [facility] Specific [place], Urine 1.024 1.001 - 1.035 08/08/2020 23:01 [facility] Blood UA Negative Negative 08/08/2020 23:01 [facility] Urobilinogen UA 4(A) Normal mg/dL 08/08/2020 23:01 [facility] Nitrite UA Negative Negative 08/08/2020 23:01 [facility] Leukocyte Esterase UA Negative Negative 08/08/2020 23:01 [facility] Protein UA 1+(A) Negative 08/08/2020 23:01 [facility] pH, UA 7.5 4.6 - 8.0 08/08/2020 23:01 [facility] Urine RBC Count, Auto 0 - 2 0 - 2 Cells/HPF 08/08/2020 23:01 [facility] Urine WBC Count, Auto 0 - 3 0 - 3 Cells/HPF 08/08/2020 23:01 [facility] Urine Squamous Count, Auto Moderate(A) None Seen Cells/HPF 08/08/2020 23:01 [facility] Urine Hyaline Cast Count, Auto <=10 <=10 Casts/LPF 08/08/2020 23:01 [facility] Urine Bacteria Count, Auto None Seen None Seen Bacteria/HP F 08/08/2020 23:01 [facility] Urine Crystals Amorphous Phosphates Present(A) None Seen 08/08/2020 23:01 [facility] Urine URINE SPECIMEN COLLECTION, CLEAN CATCH / Unknown Urine Collect / Unknown 08/08/2020 22:32 EST 08/08/2020 22:34 EST Narrative [facility] - 08/08/2020 23:01 EST NOTE: Reflex to Urine Culture test is not indicated based on Urine Sediment Analysis results. Urine Sediment Analysis results are unreliable on urines that are unrefrigerated for >2 hrs or refrigerated >8 hrs. us Asuncion Telles MD URINALYSIS ORDERABLES Final Res ult [facility] [address] [place] [address] * CT HEAD WO CONTRAST (08/08/2020 21:15 [...] CT ORDERABLES Final Result * COVID-19 TEST [facility] PCR (08/08/2020 21:00 EST) Swab ENTIRE NASOPHARYNX / Unknown Swab / Unknown 08/08/2020 21:00 EST 08/08/2020 21:04 EST us Asuncion Telles MD MICROBIOLOGY - GENERAL ORDERABL ES Final Result [facility] [address] [place] [address] [place] [address] * COVID-19 TESTING (08/08/2020 21:00 EST) COVID-19 rt-PCR Result Negative Negative 08/08/2020 23:52 EST [facility] Comment: This test has not [...] history, and epidemiological information. Performed on the [employer] instrument Performing Lab [place] [facility] 08/08/2020 23:52 EST [facility] Swab ENTIRE NASOPHARYNX / Unknown Swab / Unknown 08/08/2020 21:00 EST 08/08/2020 21:04 EST Asuncion Telles MD MICROBIOLOGY - GENERAL ORDERABL ES Final Result Performing Organization Address City/[facility] Co de Phone Number [facility] [address] [place] [address] * LACTIC ACID (08/08/2020 21:00 EST) Lactic Acid 1.2 <=2.0 mmol/L 08/08/2020 21:17 EST [facility] Blood VENOUS BLOOD / Unknown Venipuncture / Unknown 08/08/2020 21:00 EST 08/08/2020 21:05 EST us Asuncion Telles MD CHEMISTRY & BLOOD GAS ORDERABLE S Final Result [facility] [address] [place] [address] * BACTERIAL CULTURE, BLOOD (08/08/2020 21:00 EST) Organism ID No Growth at 5 days 08/13/2020 21:30 EST [facility] Blood VENOUS BLOOD / Unknown Blood Culture / Unknown 08/08/2020 21:00 EST 08/08/2020 21:17 EST Asuncion Telles MD MICROBIOLOGY - GENERAL ORDERABL ES Final Result Performing Organization Address [facility] Co de Phone Number [facility] [address] [place] [address] * BACTERIAL CULTURE, BLOOD (08/08/2020 20:59 EST) Organism ID No Growth at 5 days 08/13/2020 21:30 EST [facility] Blood VENOUS BLOOD / Unknown Blood Culture / Unknown 08/08/2020 20:59 EST 08/08/2020 21:17 EST Asuncion Telles MD MICROBIOLOGY - GENERAL ORDERABL ES Final Result Performing Organization Address [facility] de Phone Number [facility] [address] [place] [address] * ED LUMBAR PUNCTURE BEDSIDE OR CLINIC PERFORMED (08/08/2020 19:21 EST) Narrative [facility] - 08/08/2020 19:21 EST Elise Charles MD ? 08/09/2020 ??9:40 Lumbar Puncture Date/Time: 08/08/2020 22:31 Performed by: Asuncion Telles MD Authorized by: Elise Charles MD Consent: ??Consent obtained: ??Verbal ??Consent given by: ??Patient ??Risks discussed: ??Bleeding, headache, nerve damage, infection, pain and repeat procedure ??Alternatives discussed: ??No treatment [place] protocol: ??Procedure explained and questions answered to [...] O RDERABLES Final Result Performing Organization Address [facility]/ZIP Co de Phone Number [facility] * C REACTIVE PROTEIN (08/08/2020 19:07 EST) C-Reactive Protein <7.0 <10.0 mg/L 08/08/2020 21:11 EST [facility] Blood VENOUS BLOOD / Unknown Venipuncture / Unknown 08/08/2020 19:07 EST 08/08/2020 19:12 EST us Asuncion Telles MD CHEMISTRY & BLOOD GAS ORDERABLE S Final Result Performing Organization Address [facility]/ZIP Co de Phone Number [facility] [address] [place] [address] * SED. RATE:WESTERGREN (08/08/2020 19:07 EST) Pathologist [facility] Sed Rate 12 0 - 20 mm/hr 08/08/2020 21:15 EST [facility] Blood VENOUS BLOOD / Unknown Venipuncture / Unknown 08/08/2020 19:07 EST 08/08/2020 19:12 EST Asuncion Telles MD HEMATOLOGY & PF4 ORDERABLES Fin al Result Performing Organization Address City/[facility]/ZIP Co de Phone Number [facility] [address] [place] [address] * (ABNORMAL) BETA HYDROXYBUTYRATE (08/08/2020 19:07 EST) [facility] Beta Hydroxybutyrate 2.7(H) <0.4 mmol/L 08/08/2020 20:43 EST [facility] Blood VENOUS BLOOD / Unknown Venipuncture / Unknown 08/08/2020 19:07 EST 08/08/2020 19:12 EST Elise Charles MD CHEMISTRY & BLOOD GAS CLEMENTE GOLDEN Final Result Performing Organization Address [facility]/ZIP Co de Phone Number [facility] [address] [place] [address] * LIPASE (08/08/2020 19:07 EST) Pathologist [facility] Lipase 194 <251 U/L 08/08/2020 19:35 EST [facility] Blood VENOUS BLOOD / Unknown Venipuncture / Unknown 08/08/2020 19:07 EST 08/08/2020 19:12 EST us Asuncion Telles MD CHEMISTRY & BLOOD GAS ORDERABLE S Final Result Performing Organization Address [facility] Co de Phone Number [facility] [address] [place] [address] * (ABNORMAL) COMPREHENSIVE METABOLIC PANEL (CMP) (08/08/2020 19:07 EST) Pathologist [facility] Sodium 136 136 - 145 mEq/L 08/08/2020 19:38 [facility] Potassium 3.7 3.5 - 5.0 mEq/L 08/08/2020 19:38 [facility] Comment: NOTE: Interpret with caution. Prolonged sample storage may alter the result. Chloride 91(L) 96 - 110 mEq/L 08/08/2020 19:38 [facility] CO2 Total 28 22 - 32 mEq/L 08/08/2020 19:38 [facility] Comment: NOTE: Interpret with caution. Prolonged sample storage may alter the result. Glucose 224(H) 70 - 100 mg/dL 08/08/2020 19:38 [facility] BUN 12 10 - 26 mg/dL 08/08/2020 19:38 [facility] Creatinine 0.59 0.52 - 1.04 mg/dL 08/08/2020 19:38 [facility] eGFR 119 >60 mL/min/1.7 3m2 08/08/2020 19:38 [facility] Comment:eGFR calculated gil curtis CKD-EPI equation for non- Americans. Multiply eGFR by 1.16 for patients. Total Protein 7.8 6.3 - 8.2 g/dL 08/08/2020 19:38 [facility] Albumin 4.9 3.4 - 4.9 g/dL 08/08/2020 19:38 [facility] Alkaline Phosphatase 97 38 - 126 U/L 08/08/2020 19:38 [facility] AST 29 15 - 46 U/L 08/08/2020 19:38 [facility] ALT 23 <35 U/L 08/08/2020 19:38 [facility] Bilirubin, Total 1.0 <1.4 mg/dL 08/09/19 19:38 [facility] Calcium 10.5 8.5 - 10.5 mg/dL 08/08/2020 19:38 [facility] Calculated Calcium 9.8 8.5 - 10.5 mg/dL 08/08/2020 19:38 [facility] Blood VENOUS BLOOD / Unknown Venipuncture / Unknown 08/08/2020 19:07 EST 08/08/2020 19:12 EST us Asuncion Telles MD CHEMISTRY & BLOOD GAS ORDERABLE S Final Result [facility] [address] [place] [address] * (ABNORMAL) COMPLETE BLOOD COUNT AND DIFFERENTIAL (08/08/2020 19:07 EST) WBC 16.16(H) 4.00 - 12.40 K/cmm 08/08/2020 19:33 [facility] RBC 4.94 3.86 - 5.04 M/cmm 08/08/2020 19:33 [facility] Hemoglobin 15.3(H) 11.6 - 15.2 gm/dL 08/08/2020 19:33 [facility] HCT 41.4 34.9 - 44.4 % 08/08/2020 19:33 [facility] MCV 84 81 - 98 fl 08/08/2020 19:33 [facility] MCH 31.0 26.7 - 33.3 pg 08/08/2020 19:33 [facility] MCHC 37.0(H) 32.1 - 35.9 gm/dL 08/08/2020 19:33 [facility] RDW-CV 11.9 <14.7 % 08/08/2020 19:33 [facility] RDW-SD 36.2 <50.4 fl 08/08/2020 19:33 [facility] PLT 416(H) 141 - 377 K/cmm 08/08/2020 19:33 [facility] MPV 9.7 9.5 - 12.7 fl 08/08/2020 19:33 [facility] % Neutrophils 65.9 % 08/08/2020 19:33 [facility] % Lymphocytes 25.0 % 08/08/2020 19:33 [facility] % Monocytes 8.1 % 08/08/2020 19:33 [facility] % Eosinophils 0.4 % 08/08/2020 19:33 [facility] % Basophils 0.4 % 08/08/2020 19:33 [facility] % Immature Grans 0.2 % 08/09/19 19:33 [facility] Absolute Neutrophils 10.63(H) 2.20 - 8.85 K/cmm 08/08/2020 19:33 [facility] Absolute Lymphocytes 4.04(H) 1.09 - 3.30 K/cmm 08/08/2020 19:33 [facility] Absolute Monocytes 1.31(H) 0.10 - 0.80 K/cmm 08/08/2020 19:33 [facility] Absolute Eosinophils 0.07 0.03 - 0.61 K/cmm 08/08/2020 19:33 [facility] ABS Basophils 0.07 0.01 - 0.11 K/cmm 08/08/2020 19:33 [facility] Absolute Immature Grans 0.04 0.00 - 0.06 K/cmm 08/08/2020 19:33 [facility] Type of Differential: Auto 08/08/2020 19:33 [facility] Blood VENOUS BLOOD / Unknown Venipuncture / Unknown 08/08/2020 19:07 EST 08/08/2020 19:12 EST us Asuncion Telles MD PACKAGES & DNA PROBE ORDERABLES Final Result [facility] [address] [place] [address] * HOLD SST (08/08/2020 19:07 EST) Hold Hold 08/08/2020 20:15 [facility] Blood VENOUS BLOOD / Unknown Venipuncture / Unknown 08/08/2020 19:07 EST 08/08/2020 19:12 EST us Elise Charles MD LAB INFO SERVICE AND SUPPO RT & PHONE RESULT Final Result [facility] [address] [place] [address] * HOLD LAVENDER TOP (08/08/2020 19:07 EST) Hold Hold 08/08/2020 20:15 EST [facility] Blood VENOUS BLOOD / Unknown Venipuncture / Unknown 08/08/2020 19:07 EST 08/08/2020 19:12 EST us Elise Charles MD LAB INFO SERVICE AND SUPPO RT & PHONE RESULT Final Result [facility] [address] [place] [address] * HOLD GREEN TOP (08/08/2020 19:07 EST) Hold Hold 08/08/2020 20:15 EST [facility] Blood VENOUS BLOOD / Unknown Venipuncture / Unknown 08/08/2020 19:07 EST 08/08/2020 19:12 EST us Elise Charles MD LAB INFO SERVICE AND SUPPO RT & PHONE RESULT Final Result [facility] [address] [place] [address] * HOLD BLUE TOP (08/08/2020 19:07 EST) Hold Hold 08/08/2020 20:15 EST [facility] Blood VENOUS BLOOD / Unknown Venipuncture / Unknown 08/08/2020 19:07 EST 08/08/2020 19:12 EST us Elise Charles MD LAB INFO SERVICE AND SUPPO RT & PHONE RESULT Final Result [facility] [address] [place] [address] * EKG 12-LEAD (08/08/2020 19:04 EST) 08/08/2020 19:0 4 EST Narrative [facility] - 08/25/2020 13:16 EDT ?[facility] ? Test Date: ?2020-08-08 Pat Name: ? CRISTY LUO ?Department: ?? ED ? Room: ? AC14 Gender: ? Female ? Mobility Specialist: ?? [id number] : ?1985 ? Requested By: SUSANNE Huizar Order Number: [id number] ? Sammie MD: ?? CINDY GARCIA MD ? Measurements Intervals ?[place] ? Rate: ? 86 ? P: ?65 NH: ? 139 ?QRS: ?48 QRSD: ? 93 [...] Note Cindy Garcia MD - 08/25/2020 [facility] Test Date: 2020-08-08 Pat Name: CRISTY LUO Department: ED Room: 14 Gender: Female Mobility Specialist: [id number] : 1985 Requested By: SUSANNE Huizar Order Number: [id number] Sammie MD: CINDY GARCIA MD Measurements Intervals [place] Rate: 86 P: 65 NH: 139 QRS: 48 QRSD: 93 T: 20 [...] MD CARDIAC ECG ORDERABLES Final R esult [facility] * (ABNORMAL) POCT GLUCOSE, INTERFACED (08/08/2020 18:54 EST) Glucose, POC 213(H) 70 - 100 mg/dL 08/08/2020 18:55 EST [facility] content management consultant ID [id number] 08/08/2020 18:55 EST [facility] HN LAB POC COMMENT (GLUCOSE) Test Performed by Nursing Services 08/08/2020 18:55 EST [facility] Blood CAPILLARY BLOOD / Unknown 08/08/2020 18:54 EST 08/08/2020 18:55 EST us Provider Joe MARTÍNEZ POINT OF CARE TEST ORDERABLE S Final Result Performing Organization Address City/[facility]/ZIP Co de Phone Number [facility] [address] [place] [phone] documented in this encounter Visit Diagnoses Diagnosis Generalized abdominal pain- Primary Abdominal pain, generalized Generalized abdominal pain Abdominal pain, generalized Emesis, persistent Persistent vomiting Type 2 diabetes mellitus with hyperosmolarity without coma, with long-term current use of insulin ([facility]) Dehydration Gastroparesis Abdominal pain Abdominal pain, unspecified site Emesis, persistent Persistent vomiting Dehydration Gastroparesis Generalized abdominal pain Abdominal pain, generalized Emesis, persistent Persistent vomiting Type 2 diabetes mellitus with hyperosmolarity without coma, with long-term current use of insulin ([facility]) documented in this encounter Administered Medications Inactive [...] - Provider: Jayne Perera RN - Comment: [phone] (Not Given - Provider: Vinicius Blood RN [...] RN)0900 (Canceled Entry - Provider: Rivera Kerr [facility])2100 (Not Given - Provider: Eryn Goss RN [...]
--- OUTSIDE RECORDS SUMMARY | 2024-06-03 09:07 | XMS_ITS | Encounter Summary ---
Author Organization [facility] Address [address] [place] [address] Care Team Providers Care Cadd Technician Name Role Phone Unavailable Primary Care Provider Unavailabl e Encounter Details Date Type Department Care Team (Latest Contact Info) Description 08/12/2020 10:30 EST - 08/12/2020 23:59 EST Hospital Encounter [facility] Pre-Surgical Testing [address] [place], [place] [id number] Discharge Disposition: Home or Self Care Social [...] instruct them to call us back at [phone] to report symptoms (If patient is in [...]
--- OUTSIDE RECORDS SUMMARY | 2024-06-03 09:07 | XMS_ITS | Encounter Summary ---
Author Organization [facility] Address [address] [place] [address] Care Team Providers Care Shingle Trimmer Name Role Phone Unavailable Primary Care Provider Unavailabl e Reason for Visit * Reason Onset Date Comments New/Evolving Symptoms 08/07/2020 Encounter Details Date Type Department Care Team (Late st Contact Info) Description 08/07/2020 Telephone [facility] [address] [id number] Tonja Alejandro PA-C [address] [place] [address] [place] [phone] New/Evolving Symptoms Social History Tobacco Use [...] Answer Entry Date Author No 05/04/2020 0:28 ySlvia Alejandro RN documented in this encounter Ordered [...] Angelica Blanco DO - 08/07/2020 1916 EST on call pharmacy technician message: Patient's Fermin called several hours after [...] trouble swallowing. I spoke with GI attending dairy consultant. Recommendations included going to the ER if [...]
--- OUTSIDE RECORDS SUMMARY | 2024-06-03 09:08 | XMS_ITS | Encounter Summary ---
Author Organization [facility] Address [address] [place] [address] Care Team Providers Care Spiral Gear Generator Name Role Phone Unavailable Primary Care Provider [...]
--- OUTSIDE RECORDS SUMMARY | 2024-06-03 09:08 | XMS_ITS | Encounter Summary ---
Author Organization [facility] Address [address] [place] [address] Care Team Providers Care Saw Setter Name Role Phone Unavailable Primary Care Provider Unavailabl e Reason for Visit * Reason Comments Problem Encounter Details Date Type Department Care Team (Late st Contact Info) Description 06/25/2020 9:00 EST Office Visit [facility] OBGYN Services - [address] [id number] Ana Coronado MD [address] [place] [address], [address] [place] [phone] Unwanted fertility (Primary Dx) Social [...] told years ago ??? Depression ??? Diabetes ([facility]) A1c 10.3 on 11/28/2019 - poorly controlled ??? Difficulty opening mouth 06/13/2020 pain with opening mouth wide ??? Does not exercise 06/13/2020 due to infected toe ??? History of general anesthesia ??? Hx of ectopic 06/20/2020 ??? Irritable bowel syndrome 06/13/2020 ? ? Nausea & vomiting occasionally ??? Obesity, unspecified ??? Osteomyelitis ([facility]) of left great toe ??? [...] 8. View: Sufficient. Impression OB Transvaginal - [id number]. 1. of unknown location with findings that [...] I spoke with Dr. Mims, the benign rod puller and coiler chief resident, and I will place a [...]
--- OUTSIDE RECORDS SUMMARY | 2024-06-03 09:08 | XMS_ITS | Encounter Summary ---
Author Organization [facility] Address [address] [place] [address] Care Team Providers Care Creel Selector Name Role Phone Unavailable Primary Care Provider Unavailabl e Reason for Visit * Reason Comments Pre-op Exam Encounter Details Date Type Department Care Team (Late st Contact Info) Description 07/28/2020 10:30 EST Office Visit [facility] OBGYN Services - [facility] [address] [place] [address] Fernanda Egan, DO [address] [place] [phone] Encounter for sterilization (Primary Dx) Social History [...] Egan D.O. 07/28/2020 11:05 Obstetrics/Gynecology PGY-1 Pager #[phone] * Whit Rae MD - 07/28/2020 1030 [...] & BLOOD GAS ORDERAB LES Final Result [facility] [address] [place] [address] * (ABNORMAL) HEMOGLOBIN A1C (07/28/2020 11:25 EST) [...] ORDERAB LES Final Result Performing Organization Address City/State/[facility] Co de Phone Number [facility] [address] [place] [phone] documented in this encounter Visit Diagnoses Diagnosis Encounter for sterilization- Primary Sterilization documented in this encounter
--- OUTSIDE RECORDS SUMMARY | 2024-06-03 09:08 | XMS_ITS | Encounter Summary ---
Author Organization [facility] Address [address] [place] [address] Care Team Providers Care Lease Administrator Name Role Phone Unavailable Primary Care Provider Unavailabl e Reason for Visit * Reason Onset Date Comments No Show 06/27/2020 Encounter Details Date Type Department Care Team (Late st Contact Info) Description 06/27/2020 Telephone [facility] Adult Primary Care - [address] [id number] Tonja Alejandro PA-C [address] [place] [address] [place] [phone] No Show Social History Tobacco Use [...]
--- OUTSIDE RECORDS SUMMARY | 2024-06-03 09:08 | XMS_ITS | Encounter Summary ---
Author Organization [facility] Address [address] [place] [address] Care Team Providers Care Manager Facility Name Role Phone Unavailable Primary Care Provider Unavailabl e Encounter Details Date Type Department Care Team (Late st Contact Info) Description 06/25/2020 11:45 EST Phlebotomy Only [facility] ED Center 2 Phlebotomy [address] [place] [address] Hotel Administrative Assistant, Acc Phlebotomy of unknown anatomic location Social [...] Quant, 49(H) <5 mIU/ml 06/25/2020 12:28 EST [facility] Comment: NOTE: : Negative: Less [...] & BLOOD GAS OR DERABLES Final Result [facility] [address] [place] [address] documented in this encounter Visit Diagnoses Diagnosis of unknown anatomic location state, incidental documented in this encounter
--- OUTSIDE RECORDS SUMMARY | 2024-06-03 09:08 | XMS_ITS | Encounter Summary ---
Author Organization [facility] Address [address] [place] [address] Care Team Providers Care Medical Education Manager Name Role Phone Unavailable Primary Care Provider Unavailabl e Reason for Visit * Reason Comments Follow-up Encounter Details Date Type Department Care Team (Latest Contact Info) Description 08/01/2020 15:00 EST Office Visit [facility] Adult Primary Care - [address] [id number] Tonja Alejandro PA-C [address] [place] [address] [place] [phone] Musculoskeletal pain (Primary Dx); Type 2 diabetes mellitus with hyperosmolarity without coma, with long-term current use of insulin ([facility]); Neuropathy; Depression, unspecified depression type; Chronic [...] miscarriage. She has been following up with BELT WORKER and is ultimately scheduled for hysterectomy. [...] healthy eating -Continue to follow-up with a telecommunications sales representative History of multiple miscarriages -Continue follow-up with SLIP COVER CUTTER -Plan for hysterectomy next month Left toe [...] patient is interested in seeing a social worker masters. Will order this. Chronic back pain -Start with x-rays of thoracic and lumbar spine. -Consider MRI of thoracic spine/lumbar spine due to radicular pain Will call patient on Tuesday for further insulin instructions. Tonja Alejandro PA-C [facility] coma, with long-term current use of insulin ([facility]) Neuropathy Mononeuritis of unspecified site Depression, unspecified [...]
--- OUTSIDE RECORDS SUMMARY | 2024-06-03 09:08 | XMS_ITS | Encounter Summary ---
Author Organization [facility] Address [address] [place] [address] Care Team Providers Care Pocket Marker Name Role Phone Unavailable Primary Care Provider Unavailabl e Reason for Visit * Reason Comments Telemedicine Video Visit * Consult (Routine) - Order Cancelled Specialty Diagnoses / Procedures Referred By Contlesli t Referred To Contact Endocrinology Diagnoses Type 2 diabetes mellitus with hyperglycemia, with long-term current use of insulin ([facility]) Sara Zafar NP Phone: tel: fax: [facility] Endocrinology - [address] [address] Phone: tel: fax: Referral ID Status Reason Start Date Expiration Date Visits Requested Visits Authorized [id number] Order Cancelled Specialty Services Required 0 1 1 Encounter Details Date Type Department Care Team (Late st Contact Info) Description 07/01/2020 13:00 EST Nutrition [facility] Endocrinology - [address] CDE [address] [place] [address] [address] [place] [phone] Type 2 diabetes mellitus with hyperglycemia, with long-term current use of insulin ([facility]) (Primary Dx) Social History Tobacco Use [...] Bran cereal with milk and coffee Lunch: [place] sandwich on whole grain bread Dinner: Chicken, [...] use of insulin ([facility])- Primary documented in this encounter
--- OUTSIDE RECORDS SUMMARY | 2024-06-03 09:08 | XMS_ITS | Encounter Summary ---
Author Organization [facility] Address [address] [place] [address] Care Team Providers Care Manager Of Network Name Role Phone Unavailable Primary Care Provider [...]
--- OUTSIDE RECORDS SUMMARY | 2024-06-03 09:08 | XMS_ITS | Encounter Summary ---
Author Organization [facility] Address [address] [place] [address] Care Team Providers Care Plastic Sewer Name Role Phone Unavailable Primary Care Provider [...] 6:47 EST - 08/04/2020 11:43 EST Emergency [facility] Emergency Department - [address] [address] Satinder Sol MD [address] [place] [address], [address] [place] [address] Non-intractable vomiting with nausea, unspecified [...] 08/04/2020 11:31 EST -Thank you for choosing [facility] for your medical care today. You [...] mL 3 12/04/2019 2 lancets [employer] or other brand compatible with lancing device [...] for UTI. The patient presented to the [facility] ED endorsing nausea with emesis. Per [...] p.o. intake of ice water without difficulty. [id number] ultrasound was performed and showed no evidence [...] 08/06/2020 10:3 0 EST us Scan 2 Patient Scheduling Manager PROCEDURE/MINOR SURGICAL OR DERABLES Final Result * POCT US ED ABDOMEN (08/04/2020 11:01 EST) Anatomical Region Laterality Modality Ultrasound 08/04/2020 11:0 5 EST Narrative 08/04/2020 19:06 EST [facility] - Ultrasound Exam Date: 08/04/2020 Exam Type: POCT US ED ABDOMEN Patient Registration Rep: Asuncion Telles Attending: Satinder Sol MD Worksheet: [id number] (POCT US ED ABDOMEN) Exam Type: ?? [...] exam was performed and interpreted by the [facility] ED Staff Procedure Note Ismael Ji MD - 08/04/2020 [facility] - Ultrasound Exam Date: 08/04/2020 Exam Type: POCT US ED ABDOMEN Patient Registration Rep: Asuncion Telles Attending: Satinder Sol MD Worksheet: [id number] (POCT US ED ABDOMEN) Exam Type: Clinically [...] exam was performed and interpreted by the [facility] ED Staff Asuncion Telles MD [facility] POCT US ORDERABLES Final Re sult * HOLD SST (08/04/2020 7:18 EST) Hold Hold 08/04/2020 8:32 EST [facility] Blood VENOUS BLOOD / Unknown 08/04/2020 7:18 EST 08/04/2020 7:18 EST us Satinder Sol MD LAB INFO SERVICE AND SUPPORT & PHONE RESULT Final Result Performing Organization Address [facility] de Phone Number [facility] [address] [place] [address] * QUANT BETA HCG, (08/04/2020 7:18 EST) Beta HCG Quant, <5 <5 mIU/ml 08/04/2020 8:58 EST [facility] Comment: NOTE: : Negative: [...] ORDERAB LES Final Result Performing Organization Address [facility] de Phone Number [facility] [address] [place] [address] * EKG 12-LEAD (08/04/2020 7:08 EST) 08/04/2020 7:08 EST Narrative [facility] - 08/06/2020 10:26 EST ?[facility] Emergency ? Test Date: ?2020-08-04 Pat Name: ? CRISTY YOUNG ?Department: ?? ED ? Room: ? AC16 Gender: ? Female ? Agent Broker: ?? [id number] : ?1985 ? Requested By: GILDA SATINDER M Order Number: [id number] ? Reading MD: ?? LORI MARY MD ? Measurements Intervals ?[place] ? Rate: ? 56 ? P: ?4 [...] Pat Name: CRISTY LUO Department: ED Room: [facility] Gender: Female Agent Broker: [id number] : 1985 Requested By: GILDA Forman Order Number: [id number] Reading MD: LORI MARY MD Measurements Intervals [place] Rate: 56 P: 4 HI: 135 QRS: [...] CARDIAC ECG ORDERABLES Final Result [facility] * LIPASE (08/04/2020 7:02 EST) Lipase 131 <251 U/L 08/04/2020 8:55 EST [facility] Blood VENOUS BLOOD / Unknown Venipuncture / Unknown 08/04/2020 7:02 EST 08/04/2020 7:05 EST Asuncion Telles MD CHEMISTRY & BLOOD GAS ORDERABLE S Final Result [facility] [address] [place] [id number] * (ABNORMAL) HEPATIC FUNCTION PANEL (ALB,ALK PHOS,ALT,AST,DBIL,TOT SAL,TOT PROT) (08/04/2020 7:02 EST) Total Protein 7.0 6.3 - 8.2 g/dL 08/04/2020 8:55 [facility] Albumin 4.1 3.4 - 4.9 g/dL 08/04/2020 8:55 [facility] Bilirubin, Total <0.5 <1.4 mg/dL 08/05/19 8:55 [facility] Conjugated Bilirubin 0.0 0.0 - 0.3 mg/dL 08/04/2020 8:55 [facility] Unconjugated Bilirubin 0.2 0.0 - 1.1 mg/dL 08/04/2020 8:55 [facility] Alkaline Phosphatase 99 38 - 126 U/L 08/04/2020 8:55 [facility] ALT 16 <35 U/L 08/04/2020 8:55 [facility] AST 62(H) 15 - 46 U/L 08/04/2020 8:55 [facility] Blood VENOUS BLOOD / Unknown Venipuncture / Unknown 08/04/2020 7:02 EST 08/04/2020 7:05 EST us Asuncion Telles MD CHEMISTRY & BLOOD GAS ORDERABLE S Final Result Performing Organization Address City/[facility]/ZIP Co de Phone Number [facility] [address] [place] [phone] * LACTIC ACID (08/04/2020 7:02 EST) Lactic Acid 1.9 <=2.0 mmol/L 08/04/2020 7:31 EST [facility] Blood VENOUS BLOOD / Unknown Venipuncture / Unknown 08/04/2020 7:02 EST 08/04/2020 7:05 EST us Andrés Gacria MD CHEMISTRY & BLOOD GAS ORDERAB LES Final Result [facility] [address] [place] [address] * (ABNORMAL) SCREENING GLUCOSE (08/04/2020 7:02 EST) [facility] Glucose, Screening 325(H) 70 - 100 mg/dL 08/04/2020 7:34 EST [facility] Comment:Elevated screening g lucose value greater than 180 mg/dl, please order follow up Hemoglobin A1C. Blood VENOUS BLOOD / Unknown Venipuncture / Unknown 08/04/2020 7:02 EST 08/04/2020 7:05 EST Andrés Garcia MD CHEMISTRY & BLOOD GAS ORDERAB LES Final Result Performing Organization Address City/[facility]/ZIP Co de Phone Number [facility] [address] [place] [address] * MAGNESIUM (08/04/2020 7:02 EST) [facility] Magnesium 1.7 1.7 - 2.8 mg/dL 08/04/2020 7:31 EST [facility] Blood VENOUS BLOOD / Unknown Venipuncture / Unknown 08/04/2020 7:02 EST 08/04/2020 7:05 EST Andrés Garcia MD CHEMISTRY & BLOOD GAS ORDERAB LES Final Result Performing Organization Address City/[facility]/ZIP Co de Phone Number [facility] [address] [place] [address] * TROPONIN I (08/04/2020 7:02 EST) [facility] Troponin I (ng/mL) <0.034 <0.034 ng/mL 08/04/2020 7:43 EST [facility] Blood VENOUS BLOOD / Unknown Venipuncture / Unknown 08/04/2020 7:02 EST 08/04/2020 7:05 EST Narrative [facility] - 08/04/2020 7:43 EST The results of this assay can be falsely lowered due to the consumption of Biotin. us Andrés Garcia MD CHEMISTRY & BLOOD GAS ORDERAB LES Final Result [facility] [address] [place] [address] * ELECTROLYTES (08/04/2020 7:02 EST) Sodium 138 136 - 145 mEq/L 08/04/2020 7:31 [facility] Potassium 4.1 3.5 - 5.0 mEq/L 08/04/2020 7:31 [facility] Chloride 103 96 - 110 mEq/L 08/04/2020 7:31 [facility] CO2 Total 24 22 - 32 mEq/L 08/04/2020 7:31 [facility] Blood VENOUS BLOOD / Unknown Venipuncture / Unknown 08/04/2020 7:02 EST 08/04/2020 7:05 EST Andrés Garcia MD CHEMISTRY & BLOOD GAS ORDERAB LES Final Result Performing Organization Address [facility]/ZIP Co de Phone Number [facility] [address] [place] [address] * CREATININE (08/04/2020 7:02 EST) Creatinine 0.55 0.52 - 1.04 mg/dL 08/04/2020 7:31 [facility] eGFR 122 >60 mL/min/1.7 3m2 08/04/2020 7:31 [facility] Comment:eGFR calculated gil curtis CKD-EPI equation for non- Americans. Multiply eGFR by 1.16 for patients. Blood VENOUS BLOOD / Unknown Venipuncture / Unknown 08/04/2020 7:02 EST 08/04/2020 7:05 EST Andrés Garcia MD CHEMISTRY & BLOOD GAS ORDERAB LES Final Result Performing Organization Address City/[facility]/ZIP Co de Phone Number [facility] [address] [place] [address] * BUN (08/04/2020 7:02 EST) BUN 12 10 - 26 mg/dL 08/04/2020 7:31 [facility] Blood VENOUS BLOOD / Unknown Venipuncture / Unknown 08/04/2020 7:02 EST 08/04/2020 7:05 EST us Andrés Garcia MD CHEMISTRY & BLOOD GAS ORDERAB LES Final Result [facility] [address] [place] [address] * (ABNORMAL) COMPLETE BLOOD COUNT AND DIFFERENTIAL (08/04/2020 7:02 EST) WBC 16.23(H) 4.00 - 12.40 K/cmm 08/04/2020 7:23 [facility] RBC 4.57 3.86 - 5.04 M/cmm 08/04/2020 7:23 [facility] Hemoglobin 14.1 11.6 - 15.2 gm/dL 08/04/2020 7:23 [facility] HCT 39.2 34.9 - 44.4 % 08/04/2020 7:23 [facility] MCV 86 81 - 98 fl 08/04/2020 7:23 [facility] MCH 30.9 26.7 - 33.3 pg 08/04/2020 7:23 [facility] MCHC 36.0(H) 32.1 - 35.9 gm/dL 08/04/2020 7:23 [facility] RDW-CV 12.1 <14.7 % 08/04/2020 7:23 [facility] RDW-SD 37.6 <50.4 fl 08/04/2020 7:23 [facility] PLT 395(H) 141 - 377 K/cmm 08/04/2020 7:23 [facility] MPV 10.0 9.5 - 12.7 fl 08/04/2020 7:23 [facility] % Neutrophils 70.8 % 08/04/2020 7:23 [facility] % Lymphocytes 20.3 % 08/04/2020 7:23 [facility] % Monocytes 6.0 % 08/04/2020 7:23 [facility] % Eosinophils 1.8 % 08/04/2020 7:23 [facility] % Basophils 0.5 % 08/04/2020 7:23 [facility] % Immature Grans 0.6 % 08/05/19 7:23 [facility] Absolute Neutrophils 11.51(H) 2.20 - 8.85 K/cmm 08/04/2020 7:23 [facility] Absolute Lymphocytes 3.29 1.09 - 3.30 K/cmm 08/04/2020 7:23 [facility] Absolute Monocytes 0.97(H) 0.10 - 0.80 K/cmm 08/04/2020 7:23 [facility] Absolute Eosinophils 0.29 0.03 - 0.61 K/cmm 08/04/2020 7:23 [facility] ABS Basophils 0.08 0.01 - 0.11 K/cmm 08/04/2020 7:23 [facility] Absolute Immature Grans 0.09(H) 0.00 - 0.06 K/cmm 08/04/2020 7:23 [facility] Type of Differential: Auto 08/04/2020 7:23 [facility] Blood VENOUS BLOOD / Unknown Venipuncture / Unknown 08/04/2020 7:02 EST 08/04/2020 7:05 EST us Andrés Garcia MD PACKAGES & DNA PROBE ORDERABL ES Final Result [facility] [address] [place] [address] * (ABNORMAL) POCT GLUCOSE, INTERFACED (08/04/2020 6:59 EST) Glucose, POC 328(H) 70 - 100 mg/dL 08/04/2020 7:02 EST [facility] meat and seafood clerk ID [id number] 08/04/2020 7:02 EST [facility] HN LAB POC COMMENT (GLUCOSE) Test Performed by Nursing Services 08/04/2020 7:02 EST [facility] Blood CAPILLARY BLOOD / Unknown 08/04/2020 6:59 EST 08/04/2020 7:02 EST us Provider Unknown MD POINT OF CARE TEST ORDERABLE S Final Result [facility] [address] [place] [address] documented in this encounter Visit Diagnoses Diagnosis [...]
--- OUTSIDE RECORDS SUMMARY | 2024-06-03 09:08 | XMS_ITS | Encounter Summary ---
Author Organization [facility] Address [address] [place] [address] Care Team Providers Care Iridologist Name Role Phone Unavailable Primary Care Provider Unavailabl e Reason for Visit * Reason Comments Vaginal Bleeding Vaginal bleeding, ba ck pain, and cramping since tuesday, not soaking pads, only when wiping. seen here previously for toe amputation. Encounter Details Date Type Department Care Team (Late st Contact Info) Description 06/23/2020 8:23 EST - 06/23/2020 14:10 EST Emergency [facility] Emergency Department - [address] [address] Siobhan Hare PA-C [address] [place] [address], [address] [place] [address] of unknown anatomic location (Primary [...] 10/2018 10w4d ECTOPIC Comments: interstitial diagnosed at [facility]; given MTX 10/26/18 7 SAB 01/2018 6w0d SAB Comments: D&C at [facility] after nonviable on US; had to have repeat D&Bhavna November for retained POCs 6 SAB 06/2017 6w0d SAB Comments: D&C at [facility]; nonviable seen on US; fourth with current 5 SAB 02/2017 6w0d SAB Comments: D&C at [facility]; third with current 4 SAB 08/2015 10w0d SAB Comments: D&C at [facility]; 2nd with current 3 SAB 01/2015 9w0d SAB Comments: D&C at [facility]; first current 2 SAB 2005 6w0d SAB Comments: first ; ex ; twin confirmed by US at [facility]; no medical or surgical tx 1 Past GynHx: MTX given 10/26/2018 for interstitial . See above. PMedHx: Past Medical History: Diagnosis Date ??? Anxiety ??? Arthritis 12/05/19- Spine- told years ago ??? Depression ??? Diabetes ([facility]) A1c 10.3 on 11/28/2019 - poorly controlled ??? Difficulty opening mouth 06/13/2020 pain with opening mouth wide ??? Does not exercise 06/13/2020 due to infected toe ??? History of general anesthesia ??? Hx of ectopic 06/20/2020 ??? Irritable bowel syndrome 06/13/2020 ? ? Nausea & vomiting occasionally ??? Obesity, unspecified ??? Osteomyelitis ([facility]) of left great toe ??? Peripheral [...] 27 mL 3 ??? lancets One Touch DelBruin Brake Cables or other brand compatible with lancing device [...] file Gets together: Not on file Attends synagogue service: Not on file Active member of [...] Kenyon MD 06/23/2020 13:39 PGY4, OBGYN Pager #[phone] documented in this encounter ED Notes * [...] the Emergency Department: Good PCP: Tonja Alejandro [facility] 06/28/2020 17:56 No flowsheet data found. * Madelin Ma RN - 06/23/2020 1230 EST COLD WORKING INSPECTOR at bedside * Marychuy Kaufman - 06/23/2020 [...] for nonviable early in the first trimester. [employer] Journal of Medicine 369.15 (2013): 7958-9984. I have personally reviewed the images and [...] AND SYMPTOMS/COMMENTS: of unknown location, LMP 05/06, [id number] two days ago, not doubling appropriately COMPARISON: [...] for nonviablepregnancy early in the first trimester. [employer] Journal of Hqflkvia407.15 (2013): 8837-5593. I have personally reviewed the images and the above interpretation andagree with the findings. Siobhan Hare PA-C [facility] US OB ORDERABLES Final Result * [facility] LAB CBC SMEAR REVIEW (06/23/2020 8:53 EST) Differential Comment Slide was examined by a technologist to verify the WBC and/or platelet count. 06/23/2020 9:44 EST [facility] Blood VENOUS BLOOD / Unknown Venipuncture / Unknown 06/23/2020 8:53 EST 06/23/2020 9:06 EST Siobhan Bonnie Payam PA-C HEMATOLOGY & PF4 ORD ERABLES Final Result [facility] [address] [place] [address] * (ABNORMAL) COMPLETE BLOOD COUNT AND DIFFERENTIAL (06/23/2020 8:53 EST) WBC 6.42 4.00 - 12.40 K/cmm 06/23/2020 9:45 [facility] RBC 4.96 3.86 - 5.04 M/cmm 06/23/2020 9:45 [facility] Hemoglobin 15.4(H) 11.6 - 15.2 gm/dL 06/23/2020 9:45 [facility] HCT 43.6 34.9 - 44.4 % 06/23/2020 9:45 [facility] MCV 88 81 - 98 fl 06/23/2020 9:45 [facility] MCH 31.0 26.7 - 33.3 pg 06/23/2020 9:45 [facility] MCHC 35.3 32.1 - 35.9 gm/dL 06/23/2020 9:45 [facility] RDW-CV 12.0 <14.7 % 06/23/2020 9:45 [facility] RDW-SD 38.6 <50.4 fl 06/23/2020 9:45 [facility] PLT 06/23/2020 9:45 [facility] Comment:Unreportable due to presence of platelet clumps. MPV 06/23/2020 9:45 [facility] Comment:Not Available % Neutrophils 52.1 % 06/23/2020 9:45 [facility] % Lymphocytes 41.0 % 06/23/2020 9:45 [facility] % Monocytes 4.7 % 06/23/2020 9:45 [facility] % Eosinophils 1.7 % 06/23/2020 9:45 [facility] % Basophils 0.3 % 06/23/2020 9:45 [facility] % Immature Grans 0.2 % 06/23/19 9:45 [facility] Absolute Neutrophils 3.35 2.20 - 8.85 K/cmm 06/23/2020 9:45 [facility] Absolute Lymphocytes 2.63 1.09 - 3.30 K/cmm 06/23/2020 9:45 [facility] Absolute Monocytes 0.30 0.10 - 0.80 K/cmm 06/23/2020 9:45 [facility] Absolute Eosinophils 0.11 0.03 - 0.61 K/cmm 06/23/2020 9:45 [facility] ABS Basophils 0.02 0.01 - 0.11 K/cmm 06/23/2020 9:45 [facility] Absolute Immature Grans 0.01 0.00 - 0.06 K/cmm 06/23/2020 9:45 [facility] Type of Differential: Auto 06/23/2020 9:45 [facility] Blood VENOUS BLOOD / Unknown Venipuncture / Unknown 06/23/2020 8:53 EST 06/23/2020 9:06 EST Siobhan Hare PA-C PACKAGES & DNA PROBE ORDERABLES Final Result [facility] [address] [place] [address] * (ABNORMAL) COMPREHENSIVE METABOLIC PANEL (CMP) (06/23/2020 8:53 EST) Sodium 143 136 - 145 mEq/L 06/23/2020 9:24 [facility] Potassium 5.0 3.5 - 5.0 mEq/L 06/23/2020 9:24 [facility] Comment:Slight hemolysis chica ntified, interpret with caution as hemolysis will elevate potassium result. Chloride 101 96 - 110 mEq/L 06/23/2020 9:24 [facility] CO2 Total 28 22 - 32 mEq/L 06/23/2020 9:24 [facility] Glucose 249(H) 70 - 100 mg/dL 06/23/2020 9:24 [facility] BUN 12 10 - 26 mg/dL 06/23/2020 9:24 [facility] Comment: Slight hemolysis identified, interpret with caution as results may be affected due to hemolysis. Creatinine 0.44(L) 0.52 - 1.04 mg/dL 06/23/2020 9:24 [facility] eGFR 131 >60 mL/min/1.7 3m2 06/23/2020 9:24 [facility] Comment:eGFR calculated usbrie curtis CKD-EPI equation for non- Americans. Multiply eGFR by 1.16 for patients. Total Protein 8.5(H) 6.3 - 8.2 g/dL 06/23/2020 9:24 [facility] Comment:Slight hemolysis chica ntified, interpret with caution as results may be affected due to hemolysis. Albumin 4.9 3.4 - 4.9 g/dL 06/23/2020 9:24 [facility] Comment:Slight hemolysis chica ntified, interpret with caution as results may be affected due to hemolysis. Alkaline Phosphatase 118 38 - 126 U/L 06/23/2020 9:24 [facility] Comment:Slight hemolysis chica ntified, hemolysis will decrease ALKP result. Interpret with caution as results may be affected due to hemolysis. AST 36 15 - 46 U/L 06/23/2020 9:24 [facility] Comment:Slight hemolysis chica ntified, interpret with caution as results may be affected due to hemolysis. ALT 20 <35 U/L 06/23/2020 9:24 [facility] Bilirubin, Total 0.7 <1.4 mg/dL 06/23/19 21 9:24 [facility] Calcium 10.2 8.5 - 10.5 mg/dL 06/23/2020 9:24 [facility] Calculated Calcium 9.5 8.5 - 10.5 mg/dL 06/23/2020 9:24 [facility] Comment:Slight hemolysis chica ntified, interpret with caution as results may be affected due to hemolysis. Blood VENOUS BLOOD / Unknown Venipuncture / Unknown 06/23/2020 8:53 EST 06/23/2020 9:06 EST us Siobhan Hare PA-C CHEMISTRY & BLOOD GA S ORDERABLES Final Result Performing Organization Address [facility]/ZIP Co de Phone Number [facility] [address] [place] [address] * (ABNORMAL) QUANT BETA HCG, (06/23/2020 8:53 EST) Beta HCG Quant, 111(H) <5 mIU/ml 06/23/2020 9:38 EST [facility] Comment: NOTE: [...] GA S ORDERABLES Final Result [facility] [address] [place] [address] documented in this encounter Visit Diagnoses Diagnosis of unknown anatomic location- Primary state, incidental documented in this encounter
--- OUTSIDE RECORDS SUMMARY | 2024-06-03 09:08 | XMS_ITS | Encounter Summary ---
Author Organization [facility] Address [address] [place] [address] Care Team Providers Care Podiatric Assistant Name Role Phone Unavailable Primary Care Provider Unavailabl e Encounter Details Date Type Department Care Team (Late st Contact Info) Description 06/26/2020 Documentation Visit [facility] Obstetrics & Midwifery - [address] [phone] Nohemy Sales MD [address] [facility], [address] [place] [address] Social History Tobacco Use Types [...] 1 pad/hr and 10/10 pain. Will have PELT DROPPER RN call today Nohemy Sales MD documented in this encounter Plan of Treatment Not on file documented as of this encounter Visit Diagnoses Not on filedocumented in this encounter
--- OUTSIDE RECORDS SUMMARY | 2024-06-03 09:08 | XMS_ITS | Encounter Summary ---
Author Organization [facility] Address [address] [place] [address] Care Team Providers Care Waiter/Waitress Tourist Class Name Role Phone Unavailable Primary Care Provider Unavailabl e Reason for Visit * Reason Onset Date Comments Follow-up 06/21/2020 Encounter Details Date Type Department Care Team (Late st Contact Info) Description 06/21/2020 Telephone [facility] OBGYN Services - [facility] [address] [place], [place] [phone] Mackenzie Kenyon MD [address] [phone] Follow-up Social History Tobacco Use Types Packs/Day [...] Kenyon MD 06/21/2020 12:12 PGY4, OBGYN Pager #[phone] documented in this encounter Plan of Treatment Not on file documented as of this encounter Visit Diagnoses Diagnosis of unknown anatomic location- Primary state, incidental documented in this encounter
--- OUTSIDE RECORDS SUMMARY | 2024-06-03 09:08 | XMS_ITS | Encounter Summary ---
Author Organization [facility] Address [address] [place] [address] Care Team Providers Care Tetryl Boiling Tub Operator Name Role Phone Unavailable Primary Care Provider Unavailabl e Reason for Visit * Reason Onset Date Comments COVID-19 06/30/2020 Encounter Details Date Type Department Care Team (Late st Contact Info) Description 06/30/2020 Orders Only [facility] OBGYN Services - [address] [address] Susana Tomlinson, RN Sterilization (Primary Dx) Social [...]
--- OUTSIDE RECORDS SUMMARY | 2024-06-03 09:08 | XMS_ITS | Encounter Summary ---
Author Organization [facility] Address [address] [place] [address] Care Team Providers Care Change Management Administrator Name Role Phone Unavailable Primary Care Provider Unavailabl e Reason for Visit * Reason Comments Telemedicine Video Visit Encounter Details Date Type Department Care Team (Late st Contact Info) Description 07/02/2020 11:30 EST Telemedicine [facility] Infectious Disease - [address] [phone] Mushtaq Light, DO [address] [facility], [address] [place] [address] Osteomyelitis of left foot, unspecified [...] Bone biopsy was polymicrobial (MSSA,??GBS,??S.??anginosus, prevotella) and??MRI [id number] distal phalanx osteomyelitis with possible early proximal [...] Spine- told years ago ??? Diabetes ([facility]) ? A1c 10.3 on 11/28/2019 ??? History [...] FOREIGN BODIES:??None ?? SOCIAL HISTORY:? 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 Attends islam service: Not on file ? Active member [...] few strep anginosus, moderate prevotella 05/03 covid-19 METALLURGICAL SPECIALIST swab: negative 05/04 blood cultures:06/09 bottles [...]
--- OUTSIDE RECORDS SUMMARY | 2024-06-03 09:08 | XMS_ITS | Encounter Summary ---
Author Organization [facility] Address [address] [place] [address] Care Team Providers Care Gate Tender Name Role Phone Unavailable Primary Care Provider Unavailabl e Encounter Details Date Type Department Care Team (Late st Contact Info) Description 07/02/2020 Orders Only [facility] Endocrinology - [facility] [address] [place] [address] Sara Zafar, GUSTAVO [address] [facility] [address] [place] [address] Type 2 diabetes mellitus with hyperglycemia, with long-term current use of insulin ([facility]) (Primary Dx) Social History Tobacco [...] hyperglycemia, with long-term current use of insulin ([facility])- Primary documented in this encounter
--- OUTSIDE RECORDS SUMMARY | 2024-06-03 09:08 | XMS_ITS | Encounter Summary ---
Author Organization [facility] Address [address] [place] [address] Care Team Providers Care Stem Crusher Name Role Phone Unavailable Primary Care Provider Unavailabl e Encounter Details Date Type Department Care Team (Late st Contact Info) Description 06/21/2020 9:15 EST Phlebotomy Only [facility] ED Center 2 Phlebotomy [address] [place] [address] Quality Control Assistant, Acc Phlebotomy of unknown anatomic location [...] Quant, 152(H) <5 mIU/ml 06/21/2020 11:01 EST [facility] Comment: NOTE: : [...] & BLOOD GAS ORD ERABLES Final Result [facility] [address] [place] [address] documented in this encounter Visit Diagnoses Diagnosis of unknown anatomic location state, incidental documented in this encounter
--- OUTSIDE RECORDS SUMMARY | 2024-06-03 09:08 | XMS_ITS | Encounter Summary ---
Author Organization [facility] Address [address] [place] [address] Care Team Providers Care Sort Worker Name Role Phone Unavailable Primary Care Provider Unavailabl e Reason for Visit * Reason Onset Date Comments Miscarriage 06/26/2020 Nausea 06/26/2020 Abdominal Pain 06/26/2020 Encounter Details Date Type Department Care Team (Late st Contact Info) Description 06/26/2020 Telephone [facility] Adult Primary Care [address] [address] Tonja Alejandro PA-C [address] [place] [address] [place] [phone] Miscarriage; Nausea; Abdominal Pain Social History [...] Encounter - Tonja Alejandro PA-C - 06/26/2020 2277 EST Spoke with Stella. She has had [...] in bleeding. I encouraged her to call BUSINESS TECHNOLOGY PROFESSOR office back for further recommendations. She really would like to try to stay out of the ER department as they have not been helpful the last time they went there. I did explain to her there can be serious risk with miscarriages with increase pain and bleeding. She understands this and will call BUSINESS TECHNOLOGY PROFESSOR. * Telephone Encounter - Jesi Lua RN - 06/26/2020 1537 EST Spoke with . He states systems architect got to wifes phone and told her to go to ER. He states he is not bringing her back to the ER. He states she is not comfortable bringing her there and having them sitthere for 6hrs like they did the other day and them not do anything. He is not happy with BUSINESS TECHNOLOGY PROFESSOR office and states that is why he called us. Will forward message to Tonja DAWSON * Telephone Encounter - Tonja Alejandro PA-C - 06/26/2020 1525 EST Looks like someone from BUSINESS TECHNOLOGY PROFESSOR tried calling her. Patient needs to return phone call to them. * Telephone Encounter - Eryn Navarrete RN - 06/26/2020 1517 EST Reviewed response with patient's . He is still concerned about her pain management Will review with provider. * Telephone Encounter - Tonja Alejandro PA-C - 06/26/2020 1435 EST Please let patient know that I called over to her SENIOR VISUAL DESIGNER office/attending consumer insights intern. The doctor had put in a message [...] 1346 EST Has she talked with her ditcher operator? im concerned regarding her symptoms especially if she has a retained clot. I also worry about possible hemorrhage ( if she is severely bleeding, any increased bleedingsince yesterday? ). Has the pain changed since yesterday? Any fevers? I really think she needs to let systems architect know whats going on today . I [...] provider yesterday and things were fine) Uses [employer]. * Telephone Encounter - Dayana Cosme - [...]
--- OUTSIDE RECORDS SUMMARY | 2024-06-03 09:08 | XMS_ITS | Encounter Summary ---
Author Organization [facility] Address [address] [place] [address] Care Team Providers Care Asphalt Engineer Name Role Phone Unavailable Primary Care [...]
--- OUTSIDE RECORDS SUMMARY | 2024-06-03 09:08 | XMS_ITS | Encounter Summary ---
Author Organization [facility] Address [address] [place] [address] Care Team Providers Care Coconut Cooker Name Role Phone Unavailable Primary Care Provider Unavailabl e Encounter Details Date Type Department Care Team (Late st Contact Info) Description 07/28/2020 11:15 EST Phlebotomy Only [facility] ED Center 2 Phlebotomy [address] [place] [address] Alteration Tailor, Acc Phlebotomy Encounter for sterilization Social History [...] * (ABNORMAL) SCREENING GLUCOSE (07/28/2020 11:25 EST) [facility] Glucose, Screening 260(H) 70 - 100 mg/dL 07/28/2020 12:39 EST [facility] Comment:Elevated screening g lucose value greater than 180 mg/dl, please order follow up Hemoglobin A1C. Blood VENOUS BLOOD / Unknown Venipuncture / Unknown 07/28/2020 11:25 EST 07/28/2020 12:04 EST us Whit Rae MD CHEMISTRY & BLOOD GAS ORDERAB LES Final Result [facility] [address] [place] [address] documented in this encounter Visit Diagnoses Diagnosis Encounter for sterilization Sterilization documented in this encounter
--- OUTSIDE RECORDS SUMMARY | 2024-06-03 09:08 | XMS_ITS | Encounter Summary ---
Author Organization [facility] Address [address] [place] [address] Care Team Providers Care Payable Processor Name Role Phone Unavailable Primary Care Provider Unavailabl e Reason for Referral * ENTRY LEVEL MANAGEMENT (Routine) - Specialty Report Received Specialty Diagnoses / Procedures Referred By Contac t Referred To Contact Diagnoses of unknown anatomic location Procedures OB FIRST TRIMESTER (LESS THAN 14 WEEKS) TRANSVAGINAL Charu Flynn MD Phone: tel: fax: Referral ID Status Reason Start Date Expiration Date V isits Requested Visits Authorized [id number] Specialty Report Received 06/20/2020 1 1 Reason for Visit * Reason Onset Date Comments Follow-up 06/20/2020 Encounter Details Date Type Department Care Team (Late Contact Info) Description 06/20/2020 Telephone [facility] OBGYN Services - [address] [phone] Susana Tomlinson, RN Follow-up Social History Tobacco [...] Encounter - Susana Tomlinson RN - 06/20/2020 9823 EST Spoke Stella: advised plan per MD [...] call us with any concerns or questions. CATERPILLAR OPERATOR nurse line [phone], or after hours MD line [phone]. documented in this encounter Plan of Treatment [...] 8. View: Sufficient. Impression OB Transvaginal - 87273. 1. of unknown location with findings that [...] 8. View: Sufficient. Impression OB Transvaginal - 76358. 1. of unknown location with findings that [...]
--- OUTSIDE RECORDS SUMMARY | 2024-06-03 09:08 | XMS_ITS | Encounter Summary ---
Author Organization [facility] Address [address] [place] [address] Care Team Providers Care Television News Reporter Name Role Phone Unavailable Primary Care Provider Unavailabl e Reason for Visit * Reason Onset Date Comments Surgery Scheduling 06/30/2020 Encounter Details Date Type Department Care Team (Late st Contact Info) Description 06/30/2020 Telephone [facility] OBGYN Services - [address] [phone] Charu Flynn MD [address] [facility], [address] [place] [address] Surgery Scheduling Social History Tobacco [...] Telephone Encounter - Mere Hanna - 06/30/2020 8386 EST Called pt and scheduled surgery for [...]
--- OUTSIDE RECORDS SUMMARY | 2024-06-03 09:08 | XMS_ITS | Encounter Summary ---
Author Organization [facility] Address [address] [place] [address] Care Team Providers Care Cte Teacher Name Role Phone Unavailable Primary Care Provider Unavailabl e Reason for Visit * Reason Comments Encounter Details Date Type Department Care Team (Late st Contact Info) Description 06/20/2020 9:45 EST Office Visit [facility] Reproductive Medicine & Infertility Center - [address] [phone] Cielo Duggan MD [address] [facility], [address] [place] [address] of unknown anatomic location (Primary [...] from the original note were not included. [facility] Care Services Property Administrator Center-Level 4 [facility] FIRST TRIMESTER ULTRASOUND Reason for Visit: [...] precaustions 2.) hcg am of 06/21 with COCOA ROASTER service to follow documented in this encounter [...]
--- OUTSIDE RECORDS SUMMARY | 2024-06-03 09:08 | XMS_ITS | Encounter Summary ---
Author Organization [facility] Address [address] [place] [address] Care Team Providers Care Project Designer Name Role Phone Unavailable Primary Care [...] No 05/04/2020 0:28 Slyvia Alejandro RN * Because of a physical, [...]
--- OUTSIDE RECORDS SUMMARY | 2024-06-03 09:08 | XMS_ITS | Encounter Summary ---
Author Organization [facility] Address [address] [place] [address] Care Team Providers Care Snorkelling Instructor Name Role Phone Unavailable Primary Care Provider Unavailabl e Reason for Visit * Reason Comments Foot Problem Encounter Details Date Type Department Care Team (Latest Contact Info) Description 06/25/2020 15:00 EST Post-op Visit [facility] Foot & Ankle Program - [address] [address] Elza Navarro [address] [address] Osteomyelitis of left foot, unspecified type ([facility]) (Primary Dx); Type 2 diabetes mellitus with diabetic polyneuropathy, with long-term current use of insulin ([facility]) Social History Tobacco Use Types Packs/Day [...] current use of insulin ([facility]) No orders of the defined types were [...] prepared with speech recognition software or keyboard databases computer consultant techniques. Minor irregularities or keyboarding misprints [...]
--- OUTSIDE RECORDS SUMMARY | 2024-06-03 09:08 | XMS_ITS | Encounter Summary ---
Author Organization [facility] Address [address] [place] [address] Care Team Providers Care Clinical Trials Nurse Name Role Phone Unavailable Primary Care Provider Unavailabl e Reason for Referral * SPECIAL OFFICER AUTOMAT (Routine) - Specialty Report Received Specialty Diagnoses / Procedures Referred By Kit t Referred To Contact Diagnoses of unknown anatomic location Procedures US OB FIRST TRIMESTER (LESS THAN 14 WEEKS) TRANSVAGINAL Charu Flynn MD Phone: tel: fax: Referral ID Status Reason Start Date Expiration Date V isits Requested Visits Authorized [id number] Specialty Report Received 06/20/2020 1 1 Reason for Visit * SPECIAL OFFICER AUTOMAT (Routine) - Specialty Report Received Specialty Diagnoses / Procedures Referred By Kit goode Referred To Contact Diagnoses of unknown anatomic location Procedures US OB FIRST TRIMESTER (LESS THAN 14 WEEKS) TRANSVAGINAL Charu Flynn MD Phone: tel: fax: Referral ID Status Reason Start Date Expiration Date V isits Requested Visits Authorized [id number] Specialty Report Received 06/20/2020 1 1 Encounter Details Date Type Department Care Team (Latest Contact Info) Description 06/25/2020 10:51 EST - 06/25/2020 23:59 EST Hospital Encounter [facility] OBGYN Services - Main [place] [address], [place] [id number] of unknown anatomic location Discharge Disposition: Home [...] 8. View: Sufficient. Impression OB Transvaginal - 80151. 1. of unknown location with findings that [...] 8. View: Sufficient. Impression OB Transvaginal - 83738. 1. of unknown location with findings that [...] OF SERVICE: 06/25/2020 us Charu Flynn MD [facility] OB ORDERABLES Fin al Result documented in this encounter Visit Diagnoses Diagnosis of unknown anatomic location state, incidental documented in this encounter
--- OUTSIDE RECORDS SUMMARY | 2024-06-03 09:08 | XMS_ITS | Encounter Summary ---
Author Organization [facility] Address [address] [place] [address] Care Team Providers Care Forester Aide Name Role Phone Unavailable Primary Care Provider Unavailabl e Reason for Referral * SCROLL SHEAR OPERATOR (Routine) - Specialty Report Received Specialty Diagnoses / Procedures Referred By Kit t Referred To Contact Diagnoses of unknown anatomic location Procedures OB FIRST TRIMESTER (LESS THAN 14 WEEKS) TRANSVAGINAL David Martínez MD Phone: tel: fax: Referral ID Status Reason Start Date Expiration Date V isits Requested Visits Authorized [id number] Specialty Report Received 06/19/2020 1 1 Reason for Visit * SCROLL SHEAR OPERATOR (Routine) - Specialty Report Received Specialty Diagnoses / Procedures Referred By Kit goode Referred To Contact Diagnoses of unknown anatomic location Procedures US OB FIRST TRIMESTER (LESS THAN 14 WEEKS) TRANSVAGINAL David Martínez MD Phone: tel: fax: Referral ID Status Reason Start Date Expiration Date V isits Requested Visits Authorized [id number] Specialty Report Received 06/19/2020 1 1 Encounter Details Date Type Department Care Team (Latest Contact Info) Description 06/20/2020 9:00 EST - 06/20/2020 23:59 EST Hospital Encounter [facility] OBGYN Services - Main [place] [address] [place] [address] of unknown anatomic location Discharge Disposition: Home [...] Sufficient. Impression 1st Trimester OB scan ,transvaginal +[id number] There is no visualized gestational sac either [...] The adnexa appear normal. Follow-up Per the RECYCLING TECH service. Comment ========= Results discussed w/patient. DATE [...] Sufficient. Impression 1st Trimester OB scan ,transvaginal +[id number] There is no visualized gestational sac either [...] The adnexa appear normal. Follow-up Per the RECYCLING TECH service. Comment ========= Results discussed w/patient. DATE [...] Sufficient. Impression 1st Trimester OB scan ,transvaginal +[id number] There is no visualized gestational sac either [...] The adnexa appear normal. Follow-up Per the RECYCLING TECH service. Comment ========= Results discussed w/patient. DATE OF SERVICE: 06/20/2020 David Martínez MD [facility] OB ORDERABLES Edit ed Result - Final documented in this encounter Visit Diagnoses Diagnosis of unknown anatomic location state, incidental documented in this encounter
--- OUTSIDE RECORDS SUMMARY | 2024-06-03 09:08 | XMS_ITS | Encounter Summary ---
Author Organization [facility] Address [address] [place] [address] Care Team Providers Care Primary School Teacher Name Role Phone Unavailable Primary Care Provider Unavailabl e Reason for Visit * Reason Onset Date Comments Follow-up 06/25/2020 Encounter Details Date Type Department Care Team (Late st Contact Info) Description 06/25/2020 Telephone [facility] OBGYN Services - [facility] [address], [place] [id number] Susana Tomlinson, RN Follow-up Social History Tobacco [...]
--- OUTSIDE RECORDS SUMMARY | 2024-06-03 09:08 | XMS_ITS | Encounter Summary ---
Author Organization [facility] Address [address] [place] [address] Care Team Providers Care Duplicating Machine Operator Name Role Phone Unavailable Primary Care Provider Unavailabl e Reason for Visit * Reason Onset Date Comments Follow-up 06/27/2020 Encounter Details Date Type Department Care Team (Late st Contact Info) Description 06/27/2020 Telephone [facility] OBGYN Services - [facility] [address] [place], [place] [id number] Susana Tomlinson, RN Follow-up Social History Tobacco [...]
--- OUTSIDE RECORDS SUMMARY | 2024-06-03 09:08 | XMS_ITS | Encounter Summary ---
Author Organization [facility] Address [address] [place] [address] Care Team Providers Care Bottle Carrier Name Role Phone Unavailable Primary Care [...]
--- OUTSIDE RECORDS SUMMARY | 2024-06-03 09:08 | XMS_ITS | Encounter Summary ---
Author Organization [facility] Address [address] [place] [address] Care Team Providers Care Jumbo Operator Name Role Phone Unavailable Primary Care Provider Unavailabl e Reason for Visit * Reason Onset Date Comments Other 06/26/2020 Encounter Details Date Type Department Care Team (Late st Contact Info) Description 06/26/2020 Telephone [facility] OBGYN Services - [facility] [address] [place] [address] Rosa Chang, MARCELO Other Social History Tobacco [...] now. Is aware of bleeding precautions. Has RESIDENTIAL DIRECT SUPPORT PROFESSIONAL on-call number as well. Will route to beta book team to please advise further/follow up. * Telephone Encounter - Rosa Salazar RN - 06/26/2020 8628 EST Non-identified VM, left general message: nurse calling from [facility], calling to check in [...] take you to the ER.Please call the RESIDENTIAL DIRECT SUPPORT PROFESSIONAL nurses at [phone] when you receive this message. documented in this encounter Plan of Treatment Not on file documented as of this encounter Visit Diagnoses Not on filedocumented in this encounter
--- OUTSIDE RECORDS SUMMARY | 2024-06-03 09:08 | XMS_ITS | Encounter Summary ---
Author Organization [facility] Address [address] [place] [address] Care Team Providers Care Distilling Department Supervisor Name Role Phone Unavailable Primary Care Provider Unavailabl e Reason for Visit * Reason Onset Date Comments No Show 07/16/2020 Yohannes 07/15/20 Encounter Details Date Type Department Care Team (Late st Contact Info) Description 07/16/2020 Telephone [facility] Endocrinology - [address] CDE [address] [facility] [address] [place] [address] No Show (Yohannes 07/15/20) Social [...]
--- OUTSIDE RECORDS SUMMARY | 2024-06-03 09:08 | XMS_ITS | Encounter Summary ---
Author Organization [facility] Address [address] [place] [address] Care Team Providers Care School Examiner Name Role Phone Unavailable Primary Care Provider Unavailabl e Encounter Details Date Type Department Care Team (Late st Contact Info) Description 06/26/2020 Orders Only [facility] OBGYN Services - [facility] [address] [place], [place] [address] Marisa Tony MD [address] [place] [id number] Social History Tobacco Use Types Packs/Day Years [...] Notes * Marisa Tony MD - 06/26/2020 5317 EST Asked by Gy nurses to call [...] for tramadol 50mg. Instructed patient to call educational specialist number if sx worsen. Marisa Tony MD Hand Former Helper PGY-1 Pager [phone] documented in this encounter Plan of Treatment Not on file documented as of this encounter Visit Diagnoses Not on filedocumented in this encounter
--- OUTSIDE RECORDS SUMMARY | 2024-06-03 09:08 | XMS_ITS | Encounter Summary ---
Author Organization [facility] Address [address] [place] [address] Care Team Providers Care Freight Flagman Name Role Phone Unavailable Primary Care Provider Unavailabl e Reason for Visit * Reason Onset Date Comments Appointment Related 07/30/2020 Encounter Details Date Type Department Care Team (Late st Contact Info) Description 07/30/2020 Telephone [facility] OBGYN Services - [facility] [address] [place], [place] [id number] Nimisha Bay MD [address] [facility] [address] [facility] Building, [address] [place] [address] Appointment Related Social History Tobacco [...] Sylvai Alejandro RN documented in this encounter Miscellaneous [...]
--- OUTSIDE RECORDS SUMMARY | 2024-06-03 09:08 | XMS_ITS | Encounter Summary ---
Author Organization [facility] Address [address] [place] [address] Care Team Providers Care Assistant Professor Of Dietetics Name Role Phone Unavailable Primary Care Provider Unavailabl e Reason for Visit * Reason Comments Foot Problem Encounter Details Date Type Department Care Team (Latest Contact Info) Description 07/02/2020 14:30 EST Office Visit [facility] Foot & Ankle Program - [address] [address] Elza Navarro DPM [address] [place] [phone] Osteomyelitis of left foot, unspecified type ([facility]) (Primary Dx); Type 2 diabetes mellitus with diabetic polyneuropathy, with long-term current use of insulin ([facility]) Social History Tobacco Use Types Packs/Day Years [...] 1. Osteomyelitis of left foot, unspecified type ([facility]) 2. Type 2 diabetes mellitus with diabetic polyneuropathy, with long-term current use of insulin ([facility]) No orders of the defined types were [...] speech recognition software or keyboard data integration developer techniques. Minor irregularities or keyboarding misprints may be present documented in this encounter Plan of Treatment Not on file documented as of this encounter Visit Diagnoses Diagnosis Osteomyelitis of left foot, unspecified type ([facility])- Primary Type 2 diabetes mellitus with diabetic polyneuropathy, with long-term current use of insulin ([facility]) documented in this encounter
--- OUTSIDE RECORDS SUMMARY | 2024-06-03 09:09 | XMS_ITS | Encounter Summary ---
Author Organization [facility] Address [address] [place] [address] Care Team Providers Care Industrial Engineering Technician Name Role Phone Unavailable Primary [...]
--- OUTSIDE RECORDS SUMMARY | 2024-06-03 09:09 | XMS_ITS | Encounter Summary ---
Author Organization [facility] Address [address] [place] [address] Care Team Providers Care Air Tucker Name Role Phone Unavailable Primary Care Provider Unavailabl e Reason for Visit * Reason Onset Date Comments Medication Management 06/13/2020 Encounter Details Date Type Department Care Team (Late st Contact Info) Description 06/13/2020 Telephone [facility] Endocrinology - [facility] [address] [place] [address] Sara Zafar NP [address] [facility] [address] [place] [address] Medication Management Social History Tobacco [...]
--- OUTSIDE RECORDS SUMMARY | 2024-06-03 09:09 | XMS_ITS | Encounter Summary ---
Author Organization [facility] Address [address] [place] [address] Care Team Providers Care Obgyn Hospitalist Physician Name Role Phone Unavailable Primary Care Provider Unavailabl e Reason for Visit * Reason Onset Date Comments Follow-up 05/05/2020 Encounter Details Date Type Department Care Team (Late st Contact Info) Description 05/05/2020 Telephone [facility] Infectious Disease - [address] [id number] Mushtaq Light, DO [address] [facility], [address] [place] [address] Follow-up Social History Tobacco Use [...] childcare. She is currently back home in [place] is clinically stable. Unfortunately her MRI showed osteomyelitis by report of the great toe. I called in a prescription for Augmentin 875 p.o. twice daily to her pharmacy in [place] and she will pick it up later [...]
--- OUTSIDE RECORDS SUMMARY | 2024-06-03 09:09 | XMS_ITS | Encounter Summary ---
Author Organization [facility] Address [address] [place] [address] Care Team Providers Care Surveillance Analyst Name Role Phone Unavailable Primary Care Provider Unavailabl e Encounter Details Date Type Department Care Team (Latest Contact Info) Description 06/09/2020 9:35 EST Phlebotomy Only [facility] - [place] [address] [place] [address] Osteomyelitis of left foot, unspecified type ([facility]) Social History Tobacco Use Types [...] ES Final Result Performing Organization Address [facility] Co de Phone Number [facility] [address] [place] [address] * COVID-19 TESTING (06/09/2020 9:28 EST) COVID-19 rt-PCR Result Negative Negative 06/09/2020 16:34 EST [facility] Comment: This test [...] history, and epidemiological information. Performed on the [employer] ANTIQU[employer] CONSIGNMENT[employer] Fusion instrument Performing Lab [place] [facility] Lab 06/09/2020 16:34 EST [facility] Swab ENTIRE NASOPHARYNX / Unknown Swab / Unknown 06/09/2020 9:28 EST 06/09/2020 9:28 EST Elza Navarro DPM MICROBIOLOGY - GENERAL ORDERABL ES Final Result Performing Organization Address City/[facility]/ZIP Co de Phone Number [facility] [address] [place] [address] documented in this encounter Visit Diagnoses Diagnosis Osteomyelitis of left foot, unspecified type ([facility]) documented in this encounter
--- OUTSIDE RECORDS SUMMARY | 2024-06-03 09:09 | XMS_ITS | Encounter Summary ---
Author Organization [facility] Address [address] [place] [address] Care Team Providers Care Slate Splitter Name Role Phone Unavailable Primary Care Provider Unavailabl e Encounter Details Date Type Department Care Team ([facility] Contact Info) Description 05/12/2020 Documentation Visit [facility] - [address] [place], [place] [address] Marcel Bustamante Social History Tobacco Use Types [...]
--- OUTSIDE RECORDS SUMMARY | 2024-06-03 09:09 | XMS_ITS | Encounter Summary ---
Author Organization [facility] Address [address] [place] [address] Care Team Providers Care Design Technology Teacher Name Role Phone Unavailable Primary Care [...]
--- OUTSIDE RECORDS SUMMARY | 2024-06-03 09:09 | XMS_ITS | Encounter Summary ---
Author Organization [facility] Address [address] [place] [address] Care Team Providers Care Gardening Supervisor Name Role Phone Unavailable Primary Care Provider Unavailabl e Reason for Visit * Reason Comments Foot Problem Encounter Details Date Type Department Care Team (Late st Contact Info) Description 05/06/2020 10:30 EST Office Visit [facility] Foot & Ankle Program - [address] [place] [address] Elza Navarro DPM [address] [place] [address] Ulcer of great toe, left, with necrosis of bone ([facility]) (Primary Dx); Type 2 diabetes mellitus with diabetic polyneuropathy, with long-term current use of insulin ([facility]) Social History Tobacco Use Types [...] the great toe. She had to leave [place] due to childcare issues at home. She [...] diabetes mellitus with left diabetic foot ulcer ([facility]) 05/03/2020 Priority: Medium ??? Osteomyelitis of great toe of left foot ([facility]) 03/12/2020 Priority: Medium ??? Diabetic foot ulcer associated with diabetes mellitus due to underlying condition ([facility]) 03/07/2020 Priority: Medium ??? Diabetic foot infection ([facility]) 03/06/2020 Priority: Medium ??? Diabetic foot ulcer ([facility]) 03/06/2020 Priority: Medium ??? Cellulitis of great toe of left foot 11/26/2019 Priority: Medium ??? Chronic midline low back pain without sciatica 11/26/2019 Priority: Medium ??? Chronic left ear pain 09/04/2015 Priority: Medium ??? Encounter for sterilization 11/20/2019 ??? Family history of rheumatoid arthritis 09/04/2015 ??? Type 2 diabetes mellitus ([facility]) 09/03/2015 ??? Anxiety and depression 05/12/2010 ??? Migraine with aura and without status migrainosus, not intractable Past Medical History: Diagnosis Date ??? Anxiety ??? Arthritis 12/05/19- Spine- told years ago ??? Diabetes ([facility]) A1c 10.3 on 11/28/2019 ??? [...] 27 mL 3 ??? lancets [employer] or other brand compatible with lancing device [...] polyneuropathy, with long-term current use of insulin ([facility]) No orders of the defined types [...] prepared with speech recognition software or keyboard access database developer techniques. Minor irregularities or keyboarding misprints may be present documented in this encounter Plan of Treatment Not on file documented as of this encounter Visit Diagnoses Diagnosis Ulcer of great toe, left, with necrosis of bone ([facility])- Primary Type 2 diabetes mellitus with diabetic polyneuropathy, with long-term current use of insulin ([facility]) documented in this encounter Discontinued Medications [...]
--- OUTSIDE RECORDS SUMMARY | 2024-06-03 09:09 | XMS_ITS | Encounter Summary ---
Author Organization [facility] Address [address] [place] [address] Care Team Providers Care Sweatband Drummer Name Role Phone Unavailable Primary Care Provider Unavailabl e Reason for Visit * Reason Comments Toe Injury diabetic foot ulcer on right great toe. admitted in march for IV abx x1week and then d/c with PO abx [id number]. last night noticed swelling, increased pain, redness and drainage from ulcer. dressed prior to arrival. unable to bear weight * Auth/Cert Specialty Diagnoses / Procedures Referred By Contac t Referred To Contact Diagnoses Diabetic foot infection ([facility]) 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 ([facility]) Referral ID Status Reason Start Date Expiration Date Visits Re quested Visits Authorized [id number] 1 1 Encounter Details Date Type Department Care Team (Late st Contact Info) Description 05/03/2020 21:20 EST - 05/04/2020 20:27 [facility] Hospital Encounter [facility] [address] [id number] Fran Barbosa MD 111 [facility], Level [address] [place] [address] Lalito You MD MPH [address] [phone] Obi Hancock MD [address] [phone] Diabetic foot infection (HCC-CMS) (Primary Dx); Type [...] Summaries * Obi Hancock MD - 05/04/2020 1569 EST Medicine Discharge Summary Primary Care Provider: Tonja Alejandro Attending Physician: Obi Hancock MD Admit Date: 05/03/2020 Discharge Date: 05/04/20 Disposition: Home Reason for Admission: left foot pain Principal/Final Diagnosis: Sepsis secondary to diabetic foot infection ([facility]) with osteomyelitis Additional Problems Managed in the Hospital Active Hospital Problems Diagnosis Date Noted ??? *Diabetic foot infection ([facility]) 03/06/2020 ??? 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 ([facility]) 05/03/2020 Resolved Hospital Problems No resolved [...] lantus (22 units at bedtime) - Continue HEAD SCREEN WORKER gabapentin 100mg TID Hospital Course: Mrs. Cristy Luo??is a 35 year old??female??with a past medical history notable for insulin-dependent T2DM (c/b peripheral neuropathy and diabetic foot ulcer), recurrent migraine, TERI/MDD admitted 05/03/20 for worsening left foot pain, suspicious for recurrent diabetic foot infection. Of note, patient was recent admitted to [facility] for management of left great toe osteomyelitis between 03/06/20 to 03/12/20. During that time, she was started on cefazolin IV and metronidazole for six weeks. She completed her antibiotic course outpatient on 04/20/20. She complained of no symptoms during that time. On the night of 05/02/20, she noted worsening left foot pain and swelling after spending the day decorating her home for [employer]. She subsequently went to the [facility] ED for further evaluation. On admission, [...] Component Value Units Date/Time Bacterial Culture, Blood [[id number]] Collected: 05/04/20 0540 Lab Status: In process Specimen: Blood, Venous Updated: 05/04/20 0733 Bacterial Culture, Blood [[id number]] Collected: 05/04/2047 Lab Status: In process Specimen: Blood, Venous Updated: 05/04/20 0733 Hemoglobin A1c [[id number]] Collected: 05/03/202137 Lab Status: In process Specimen: Blood, Venous Updated: 05/04/20 0043 Upcoming Appointments May 14, 2020 14:30 Office Visit with Elza Navarro DPM [facility] - [facility] (--) [address] [facility] [phone] Follow-up appointments and procedures Amb Consult/Follow Up [...] spending the day decorating her home for [employer]. On further ROS, she denied F/C/S, N/V/D, [...] lantus (22 units at bedtime) - Continue HEAD SCREEN WORKER gabapentin 100mg TID # Chronic Migraine - [...] [facility]. She was [...] 12/05/19- Spine- told years ago ??? Diabetes ([facility]) A1c 10.3 on 11/28/2019 ??? [...] for 90 days. ??? lancets One Touch DelFuze or other brand compatible with lancing device [...] for now: 22U Lantus at bedtime. - HEAD SCREEN WORKER gabapentin 100mg TID (just started this 3 [...] weeks of cefazolin 2gm q8h and PO [id number] q8h, with dressing changes and short-interval podiatry [...] Diabetes ([facility]) A1c 10.3 on 11/28/2019 ??? 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 [...] x1week and then d/c with PO abx [id number]. last night noticed swelling, increased pain, redness [...] afterwards. She is followed by Dr. Navarro, it operations analyst. Last night, patient noticed swelling, increased [...] Lalito You. Final diagnoses: Diabetic foot infection ([facility]) MDM MDM Number of Diagnoses or Management Options Diabetic foot infection ([facility]) Diagnosis management comments: 5 Amount and/or [...] EST Data: Pt left AMA d/t children's librarian issues. Action: MD notified and spoke to the pt. Response: Pt signed AMA paperwork, left the unit at 2009. LIZZ RUIZ RN 05/04/2020 20:12 * Plan of Care - Jonelle Sun RN - 05/04/2020 1410 EST Problem: Daily Care Plan Goals Goal: Care Plan Documentation Flowsheets (Taken 05/04/2020 7894) Area of Focus: Discharge Plan Goal This [...] Education provided and verbalized back to this chief writer by pt, expressing understanding of teaching. [...] 03/19/2020, there has been interval increase in [id number] in the first proximal phalanx. There is [...] Growth at 5 days 05/09/2020 7:45 EST [facility] Blood VENOUS BLOOD / Unknown Blood Culture / Unknown 05/04/2020 5:47 EST 05/04/2020 7:33 EST Sara Banks MD MICROBIOLOGY - GENERAL ORDERA BLES Final Result [facility] [address] [place] [address] * (ABNORMAL) BACTERIAL CULTURE, BLOOD (05/04/2020 5:40 EST) Organism ID Corynebacterium species(AA) 05/06/2020 14:29 [facility] Comment:Detected in the aero bic bottle at 37 hours Blood VENOUS BLOOD / Unknown Blood Culture / Unknown 05/04/2020 5:40 EST 05/04/2020 7:33 EST us Sara Banks MD MICROBIOLOGY - GENERAL ORDERA BLES Final Result [facility] [address] [place] [phone] * (ABNORMAL) COMPLETE BLOOD COUNT (05/04/2020 5:32 EST) WBC 13.43(H) 4.00 - 12.40 K/cmm 05/04/2020 6:24 [facility] RBC 4.27 3.86 - 5.04 M/cmm 05/04/2020 6:24 [facility] Hemoglobin 13.1 11.6 - 15.2 gm/dL 05/04/2020 6:24 [facility] HCT 38.3 34.9 - 44.4 % 05/04/2020 6:24 [facility] MCV 90 81 - 98 fl 05/04/2020 6:24 [facility] MCH 30.7 26.7 - 33.3 pg 05/04/2020 6:24 [facility] MCHC 34.2 32.1 - 35.9 gm/dL 05/04/2020 6:24 [facility] RDW-CV 12.4 <14.7 % 05/04/2020 6:24 [facility] RDW-SD 40.6 <50.4 fl 05/04/2020 6:24 [facility] PLT 335 141 - 377 K/cmm 05/04/2020 6:24 [facility] MPV 10.0 9.5 - 12.7 fl 05/04/2020 6:24 [facility] Blood VENOUS BLOOD / Unknown Venipuncture / Unknown 05/04/2020 5:32 EST 05/04/2020 6:11 EST Lalito You MD MPH HEMATOLOGY & PF4 ORDERABLES Final Result Performing Organization Address [facility] Co de Phone Number [facility] [address] [place] [address] * (ABNORMAL) CREATININE (05/04/2020 5:32 EST) Creatinine 0.46(L) 0.52 - 1.04 mg/dL 05/04/2020 6:52 EST [facility] eGFR 129 >60 mL/min/1.7 3m2 05/04/2020 6:52 EST [facility] Comment:eGFR calculated gil g CKD-EPI equation for non- Americans. Multiply eGFR by 1.16 for patients. Blood VENOUS BLOOD / Unknown Venipuncture / Unknown 05/04/2020 5:32 EST 05/04/2020 6:22 EST us Lalito You MD MPH CHEMISTRY & BLOOD GAS ORDER HAILEY Final Result Performing Organization Address [facility] Co de Phone Number [facility] [address] [place] [address] * BUN (05/04/2020 5:32 EST) BUN 17 10 - 26 mg/dL 05/04/2020 6:52 EST [facility] Blood VENOUS BLOOD / Unknown Venipuncture / Unknown 05/04/2020 5:32 EST 05/04/2020 6:22 EST us Lalito You MD MPH CHEMISTRY & BLOOD GAS ORDER HAILEY Final Result Performing Organization Address [facility]/ZIP Co de Phone Number [facility] [address] [place] [address] * ELECTROLYTES (05/04/2020 5:32 EST) Sodium 137 136 - 145 mEq/L 05/04/2020 6:52 EST [facility] Potassium 4.4 3.5 - 5.0 mEq/L 05/04/2020 6:52 EST [facility] Chloride 104 96 - 110 mEq/L 05/04/2020 6:52 EST [facility] CO2 Total 24 22 - 32 mEq/L 05/04/2020 6:52 EST [facility] Blood VENOUS BLOOD / Unknown Venipuncture / Unknown 05/04/2020 5:32 EST 05/04/2020 6:22 EST Lalito You MD MPH CHEMISTRY & BLOOD GAS ORDER HAILEY Final Result Performing Organization Address [facility]/ZIP Co de Phone Number [facility] [address] [place] [address] * COVID-19 TEST [facility] PCR (05/03/2020 23:59 EST) Swab ENTIRE NASOPHARYNX / Unknown Swab / Unknown 05/03/2020 23:59 EST 05/04/2020 0:01 EST Fran Barbosa MD MICROBIOLOGY - GENERA L ORDERABLES Final Result Performing Organization Address [facility] Co de Phone Number [facility] [address] [place] [address] * COVID-19 TESTING (05/03/2020 23:59 EST) COVID-19 rt-PCR Result Negative Negative 05/04/2020 9:49 EST [facility] Comment: This test has [...] and epidemiological information. Performed on the [employer] [place] Fusion instrument Performing Lab [place] [facility] 05/04/2020 9:49 EST [facility] Swab ENTIRE NASOPHARYNX / Unknown Swab / Unknown 05/03/2020 23:59 EST 05/04/2020 0:01 EST us Fran Barbosa MD MICROBIOLOGY - GENERA L ORDERABLES Final Result [facility] [address] [place] [address] * XR FOOT LEFT 3 OR MORE [...] A1c 9.1(H) <5.7 % 05/05/2020 8:32 EST [facility] Comment: Glycemic Status References: [...] Avg Glucose 214 mg/dL 0 8:32 EST [facility] Comment:The eAG represents t he A1c result expressed as average glucose in mg/dL. Blood VENOUS BLOOD / Unknown Venipuncture / Unknown 05/03/2020 21:38 EST 05/03/2020 21:55 EST us Sara Banks MD CHEMISTRY & BLOOD GAS ORDERAB LES Final Result [facility] [address] [place] [address] * (ABNORMAL) SED. RATE:MARLYN (05/03/2020 21:38 EST) Sed Rate 36(H) 0 - 20 mm/hr 05/03/2020 22:09 [facility] Blood VENOUS BLOOD / Unknown Venipuncture / Unknown 05/03/2020 21:38 EST 05/03/2020 21:55 EST Fran Barbosa MD HEMATOLOGY & PF4 ORDE RABLES Final Result Performing Organization Address City/[facility]/ZIP Co de Phone Number [facility] [address] [place] [address] * (ABNORMAL) C REACTIVE PROTEIN (05/03/2020 21:38 EST) C-Reactive Protein 39.2(H) <10.0 mg/L 05/03/2020 22:19 [facility] Blood VENOUS BLOOD / Unknown Venipuncture / Unknown 05/03/2020 21:38 EST 05/03/2020 21:55 EST Fran Barbosa MD CHEMISTRY & BLOOD GAS ORDERABLES Final Result Performing Organization Address City/[facility]/ZIP Co de Phone Number [facility] [address] [place] [address] * (ABNORMAL) COMPLETE BLOOD COUNT AND DIFFERENTIAL (05/03/2020 21:38 EST) WBC 16.98(H) 4.00 - 12.40 K/cmm 05/03/2020 22:03 [facility] RBC 4.38 3.86 - 5.04 M/cmm 05/03/2020 22:03 [facility] Hemoglobin 13.7 11.6 - 15.2 gm/dL 05/03/2020 22:03 [facility] HCT 38.9 34.9 - 44.4 % 05/03/2020 22:03 [facility] MCV 89 81 - 98 fl 05/03/2020 22:03 [facility] MCH 31.3 26.7 - 33.3 pg 05/03/2020 22:03 [facility] MCHC 35.2 32.1 - 35.9 gm/dL 05/03/2020 22:03 [facility] RDW-CV 12.5 <14.7 % 05/03/2020 22:03 [facility] RDW-SD 41.1 <50.4 fl 05/03/2020 22:03 [facility] PLT 365 141 - 377 K/cmm 05/03/2020 22:03 [facility] MPV 9.7 9.5 - 12.7 fl 05/03/2020 22:03 [facility] % Neutrophils 56.7 % 05/03/2020 22:03 [facility] % Lymphocytes 29.4 % 05/03/2020 22:03 [facility] % Monocytes 8.8 % 05/03/2020 22:03 [facility] % Eosinophils 4.4 % 05/03/2020 22:03 [facility] % Basophils 0.5 % 05/03/2020 22:03 [facility] % Immature Grans 0.2 % 05/03/20 20 22:03 [facility] Absolute Neutrophils 9.61(H) 2.20 - 8.85 K/cmm 05/03/2020 22:03 [facility] Absolute Lymphocytes 5.00(H) 1.09 - 3.30 K/cmm 05/03/2020 22:03 [facility] Absolute Monocytes 1.49(H) 0.10 - 0.80 K/cmm 05/03/2020 22:03 [facility] Absolute Eosinophils 0.75(H) 0.03 - 0.61 K/cmm 05/03/2020 22:03 [facility] ABS Basophils 0.09 0.01 - 0.11 K/cmm 05/03/2020 22:03 [facility] Absolute Immature Grans 0.04 0.00 - 0.06 K/cmm 05/03/2020 22:03 [facility] Type of Differential: Auto 05/03/2020 22:03 [facility] Blood VENOUS BLOOD / Unknown Venipuncture / Unknown 05/03/2020 21:38 EST 05/03/2020 21:55 EST us Fran Barbosa MD PACKAGES & DNA PROBE ORDERABLES Final Result [facility] [address] [place] [phone] documented in this encounter Visit Diagnoses Diagnosis [...] diabetic foot infection, ID Consult: No, STAT 4269 (Given - Provider: Mar Aguirre RN) PRN [...] 2 mg 1 05/04/2020 polyethylene glycol 3350 (NH RALAX) packet 17 g 1 05/04/2020 Admission Count Last Ordered Date First Orde red Date ADMIT TO INPATIENT 1 05/03/2020 Transfer Count Last Ordered Date First Orde red Date TEACHING SERVICE 1 05/04/2020 ED BED REQUEST 1 05/03/2020 Discharge Count Last Ordered Date First Orde red Date DISCHARGE PATIENT 1 05/04/2020 documented in this encounter
--- OUTSIDE RECORDS SUMMARY | 2024-06-03 09:09 | XMS_ITS | Encounter Summary ---
Author Organization [facility] Address [address] [place] [address] Care Team Providers Care Driller Portable Name Role Phone Unavailable Primary Care Provider Unavailabl e Reason for Visit * Reason Comments Foot Problem Encounter Details Date Type Department Care Team (Latest Contact Info) Description 06/05/2020 10:30 EST Office Visit [facility] - [address] [place] [address] Elza Navarro DPM [address] [place] [phone] Osteomyelitis of toe of left foot ([facility]) (Primary Dx); Type 2 diabetes mellitus with diabetic polyneuropathy, with long-term current use of insulin ([facility]) Social History Tobacco Use Types Packs/Day [...] verbalized understanding Brynn Lopez LPN * Elza Nvaarro Dickson, DPM - 06/05/2020 1030 EST Cristy [...] diabetes mellitus with left diabetic foot ulcer ([facility]) 05/03/2020 Priority: Medium ??? Osteomyelitis of great toe of left foot ([facility]) 03/12/2020 Priority: Medium ??? Diabetic foot ulcer associated with diabetes mellitus due to underlying condition ([facility]) 03/07/2020 Priority: Medium ??? Diabetic foot infection ([facility]) 03/06/2020 Priority: Medium ??? Diabetic foot ulcer ([facility]) 03/06/2020 Priority: Medium ??? Cellulitis of great toe of left foot 11/26/2019 Priority: Medium ??? Chronic midline low back pain without sciatica 11/26/2019 Priority: Medium ??? Chronic left ear pain 09/04/2015 Priority: Medium ??? Encounter for sterilization 11/20/2019 ??? Family history of rheumatoid arthritis 09/04/2015 ??? Type 2 diabetes mellitus ([facility]) 09/03/2015 ??? Anxiety and depression 05/12/2010 ??? Migraine with aura and without status migrainosus, not intractable Past Medical History: Diagnosis Date ??? Anxiety ??? Arthritis 12/05/19- Spine- told years ago ??? Diabetes ([facility]) A1c 10.3 on 11/28/2019 ??? History [...] 1. Osteomyelitis of toe of left foot ([facility]) CASE REQUEST OPERATING ROOM 2. Type 2 diabetes mellitus with diabetic polyneuropathy, with long-term current use of insulin ([facility]) CASE REQUEST OPERATING ROOM No orders [...] with speech recognition software or keyboard senior data warehouse developer techniques. Minor irregularities or keyboarding misprints may be present documented in this encounter Plan of Treatment Not on file documented as of this encounter Visit Diagnoses Diagnosis Osteomyelitis of toe of left foot ([facility] Primary Unspecified osteomyelitis, ankle and foot Type 2 diabetes mellitus with diabetic polyneuropathy, with long-term current use of insulin ([facility]) documented in this encounter Orders Case Request Count Last Ordered Date First Orde red Date CASE REQUEST OPERATING ROOM 1 06/05/2020 documented in this encounter
--- OUTSIDE RECORDS SUMMARY | 2024-06-03 09:09 | XMS_ITS | Encounter Summary ---
Author Organization [facility] Address [address] [place] [address] Care Team Providers Care Mountain Bike Guide Name Role Phone Unavailable Primary Care Provider Unavailabl e Reason for Visit * Auth/Cert Specialty Diagnoses / Procedures Referred By Contlesli t Referred To Contact Diagnoses Encounter for sterilization Procedures WI LAP,RMV ADNEXAL STRUCTURE Laparoscopic Bilateral Salpingectomy Referral ID Status Reason Start Date Expiration Date Visits Re quested Visits Authorized [id number] 1 1 Encounter Details Date Type Department Care Team (Latest Contact Info) Description 06/16/2020 13:35 EST - 06/16/2020 17:05 [facility] Hospital Encounter [facility] [place] [address] [place] [address] Elza Navarro DPDickson [address] [place] [address] Osteomyelitis of left foot, unspecified type ([facility]) Discharge Disposition: Home or Self Care Social [...] can be contacted during weekday officehours at [phone]. If there is an emergency, Dr. Navarro may also be contacted via pager by calling the [facility] at [phone] or [phone] (pager # [phone]). documented in this encounter Medications at Time [...] last A1c was 9.1. According to her manufacturing director, patient is instructed to take 32 [...] ago ??? Depression ??? Diabetes ([facility]) A1c 10.3 on 11/28/2019 - poorly controlled [...] X Gastrointestinal x Intermittent nausea from antibiotics INKER MACHINE x History of multiple miscarriages Musculoskeletal x [...] intrathoracic) 2. History of CAD (history of TX or a positive ETT, current ischemic chest [...] Notes * Mallorie Marcial, MARCELO - 06/16/2020 4098 EST The Patient's Pre-Surgical/ Procedure test result is Positive. The Surgeon Dr. Navarro and the Anesthesiologist Have been Notified of the result. The Patient was counseled by anesthesia and Dr. Navarro regarding the Risks and Benefits of proceeding with the Surgery/ Procedure and Anesthesia. documented in this encounter OR Notes * OR Surgeon - Elza Navarro DPM - 06/16/2020 6401 EST OPERATIVE REPORT SERVICE DATE: 06/16/2020 SURGEON: Elza Navarro DPM SUPERVISOR SCOURING PADS: None. PREOPERATIVE DIAGNOSIS: Left great toe osteomyelitis. [...] retained. Elza Navarro DPM / DC Confirmation: [id number] Dictation ID: [id number] cc: documented in this encounter Miscellaneous Notes * Brief Op Note - Elza Navarro DPM - 06/16/2020 1644 EST Date: 06/16/2020 Location: [facility] OR Name: Cristy Luo, : 1985, Diagnosis Pre-op Diagnosis * Osteomyelitis of toe of left foot ([facility]) [M86.9] * Type 2 diabetes mellitus with diabetic polyneuropathy, with long-term current use of insulin ([facility]) [E11.42, Z79.4] Post-op Diagnosis * Osteomyelitis of toe of left foot ([facility]) [M86.9] * Type 2 diabetes mellitus with diabetic polyneuropathy, with long-term current use of insulin ([facility]) [E11.42, Z79.4] Procedures Left great toe amputation 97572 - WI AMPUTATION TOE,MT-P JT Surgeons * Elza Navarro DPM - Primary Procedure Summary Anesthesia: Monitor Anesthesia Care ASA: ASA status not filed in the log. Estimated Blood Loss: < 5 cc Total IV Fluids: per anesthesia Staff: Contract Administration Manager: Cherie Mayes RN Scrub Person: Arturo Pelletier Patient Car Cleaning Supervisor: Carlita Charles Indications: Stella Luo is [...] protocol. Patient will call GUSTAVO Collado (Diabetes BANKING SERVICES OFFICER) for any further questions regarding diabetes management pre op NAOMI NAVA RN * PAT Note - Naomi Nava RN - 06/13/2020 0918 EST COVID 19 Screening Perioperative at time [...] instruct them to call us back at [phone] to report symptoms (If patient is in [...] long-term current use of insulin ([facility]) Special Needs Foot Set, Patient already has surgical shoe POCT GLUCOSE, INTERFACED Routine 06/16/2020 14:40 EST POCT CSN BARCODE URINE PREG TEST STAT 06/16/2020 14:22 EST documented in this encounter Results * PATHOLOGY - SCANNED (06/20/2020 11:10 EST) 06/20/2020 11:1 0 EST us Scan 2 Nuclear Medicine Supervisor LAB INFO SERVICE AND SUPPOR T & PHONE RESULT Final Result * SURGICAL PATHOLOGY (06/16/2020 16:21 EST) Final Diagnosis A. TOE, LEFT GREAT, AMPUTATION: - Acute osteomyelitis. - Disarticulated joint with no gross evidence of acute osteomyelitis. - Skin with ulceration and acute cellulitis. 06/19/2020 15:19 [facility] Attestation There was significant resident/fellow involvement in the diagnostic evaluation of this case. By the signature below, the attending physician certifies that they have personally conducted a gross and/or microscopic examination of the described specimens and rendered or confirmed the above diagnosis. 06/19/2020 15:19 [facility] at 1519 Clinical History Left great toe osteomyelitis 06/19/2020 15:19 [facility] Gross Description A. Received [...] unguis is pale yellow firm and unremarkable. Pantograph Ii Engraver sections are submitted as follows: BLOCK SHIELDS A1-A2- underlying bone, acid decalcification A3- defect to skin and soft tissue margins EUNICE GUAJARDO(ASCP) 06/17/2020 11:11 06/19/2020 15:19 [facility] Resident/Cash w: Emory Nazario DO 06/19/2020 15:19 [facility] Performing Lab [facility] 15:19 [facility] Scanned Images 06/19/2020 15:19 [facility] Tissue AMPUTATION / Unknown 06/16/2020 16:21 EST 06/16/2020 21:33 EST Comment:Left great toe osteo myelitis us Elza Navarro DPM PATHOLOGY ORDERABLES Final Resu lt [facility] [address] [place] [address] * (ABNORMAL) ANAEROBE CULTURE/SMEAR(INC. AEROBES), OTHER (06/16/2020 16:21 EST) Organism ID Moderate Streptococcus agalactiae(A) 1 8:41 [facility] Comment:Penicillin and ampic illin are drugs of choice for treatment of beta hemolytic streptococcal infections. Organism ID Few Staphylococcus aureus(A) VITEK SUSCEPTIBILITY 1 8:41 [facility] Comment:Susceptible to nafci llin, cephalosporins and other beta lactam antibiotics (mecA gene product absent). Organism ID Few Gram-Positive Rods Aerobic (Group) 1 8:41 [facility] Organism ID Rare Prevotella bivia(A) 1 8:41 [facility] Organism ID Few Anaerococcus tetradius(A) 1 8:41 [facility] Smear Many Neutrophils Present 1 8:41 [facility] Smear Moderate Gram Positive Cocci 1 8:41 [facility] Bone ENTIRE TOE / [...] ORDERABL ES Final Result Performing Organization Address City/[facility]/ZIP Co de Phone Number [facility] [address] [place] [address] * (ABNORMAL) POCT GLUCOSE, INTERFACED (06/16/2020 14:40 EST) Glucose, POC 166(H) 70 - 100 mg/dL 06/16/2020 14:43 [facility] it field technician ID [id number] 06/16/2020 14:43 [facility] HN LAB POC COMMENT (GLUCOSE) Test Performed by Nursing Services 06/16/2020 14:43 [facility] Blood CAPILLARY BLOOD / Unknown 06/16/2020 14:40 EST 06/16/2020 14:43 EST us Elza Navarro DPM POINT OF CARE TEST ORDERABLES F inal Result Performing Organization Address City/[facility]/ZIP Co de Phone Number [facility] [address] [place] [address] * POCT CSN BARCODE URINE PREG TEST (06/16/2020 14:22 EST) Hold Hold 06/16/2020 16:30 [facility] Urine URINE SPECIMEN COLLECTION, CLEAN CATCH / Unknown 06/16/2020 14:22 EST 06/16/2020 14:22 EST us Tiff Salcedo MD LAB INFO SERVICE AND SUP PORT & PHONE RESULT Final Result [facility] [address] [place] [address] documented in this encounter Visit Diagnoses Diagnosis [...]
--- OUTSIDE RECORDS SUMMARY | 2024-06-03 09:09 | XMS_ITS | Encounter Summary ---
Author Organization [facility] Address [address] [place] [address] Care Team Providers Care Forestry Support Specialist Name Role Phone Unavailable Primary [...]
--- OUTSIDE RECORDS SUMMARY | 2024-06-03 09:09 | XMS_ITS | Encounter Summary ---
Author Organization [facility] Address [address] [place] [address] Care Team Providers Care Electrician Sound Name Role Phone Unavailable Primary Care Provider [...]
--- OUTSIDE RECORDS SUMMARY | 2024-06-03 09:09 | XMS_ITS | Encounter Summary ---
Author Organization [facility] Address [address] [place] [address] Care Team Providers Care Mobile Ui/Ux Designer Name Role Phone Unavailable Primary Care [...] Answer Entry Date Author No 05/04/2020 0:28 Syliva Alejandro RN documented in this encounter Plan of Treatment Not on file documented as of this encounter Visit Diagnoses Not on filedocumented in this encounter
--- OUTSIDE RECORDS SUMMARY | 2024-06-03 09:09 | XMS_ITS | Encounter Summary ---
Author Organization [facility] Address [address] [place] [address] Care Team Providers Care Care Transitions Manager Name Role Phone Unavailable Primary Care Provider Unavailabl e Reason for Visit * Reason Onset Date Comments Other 06/13/2020 Encounter Details Date Type Department Care Team (Late st Contact Info) Description 06/13/2020 Telephone [facility] Foot & Ankle Program - [address] [address] Elza Navarro DP [address] [place] [address] Other Social History Tobacco Use [...] told to arrive @1:30 on 06.16.[address] [facility], nothing to eat or drink after [...]
--- OUTSIDE RECORDS SUMMARY | 2024-06-03 09:09 | XMS_ITS | Encounter Summary ---
Author Organization [facility] Address [address] [place] [address] Care Team Providers Care Plant Puller Name Role Phone Unavailable Primary Care Provider Unavailabl e Reason for Visit * Auth/Cert Specialty Diagnoses / Procedures Referred By Kit t Referred To Contact Diagnoses Encounter for sterilization Procedures [place] LAP,RMV ADNEXAL STRUCTURE Laparoscopic Bilateral Salpingectomy Referral ID Status Reason Start Date Expiration Date Visits Re quested Visits Authorized [id number] 1 1 Encounter Details Date Type Department Care Team (Late st Contact Info) Description 06/16/2020 16:00 EST Anesthesia Event [facility] OR [address] [place], [place] [phone] Mushtaq Vuong MD [address] [facility], [address] [place] [phone] Elliott Skinner MD Anesthesia Record Procedure Summary [...] Barahona RN 08/06/20 0414 by Nanda Gibson, brick paver 03/10/20; Abrasion; Right, Plantar; N; Partial thickness; [...] told years ago ??? Depression ??? Diabetes ([facility]) A1c 10.3 on 11/28/2019 - poorly controlled [...] protocol. Patient will call GUSTAVO Collado (Diabetes SIDEROGRAPHIST) for any further questions regarding diabetes management [...] instruct them to call us back at [phone] to report symptoms (If patient is in [...]
--- OUTSIDE RECORDS SUMMARY | 2024-06-03 09:09 | XMS_ITS | Encounter Summary ---
Author Organization [facility] Address [address] [place] [address] Care Team Providers Care Computational Mathematician Name Role Phone Unavailable Primary Care Provider Unavailabl e Reason for Visit * Reason Onset Date Comments Pre-procedure 06/05/2020 Encounter Details Date Type Department Care Team (Latest Contact Info) Description 06/05/2020 Prep for Procedure [facility] Foot & Ankle Program - [address] [id number] Elza Navarro DPM [address] [place] [address] Osteomyelitis of left foot, unspecified [...] foot, unspecified type ([facility])- Primary documented in this encounter
--- OUTSIDE RECORDS SUMMARY | 2024-06-03 09:09 | XMS_ITS | Encounter Summary ---
Author Organization [facility] Address [address] [place] [address] Care Team Providers Care Weapons Designer Name Role Phone Unavailable Primary Care Provider Unavailabl e Encounter Details Date Type Department Care Team (Late st Contact Info) Description 06/19/2020 13:00 EST Phlebotomy Only [facility] ED Center 2 Phlebotomy [address] [place] [address] Wheat And Oats Flake Miller, Acc Phlebotomy of unknown anatomic location (Primary [...] Quant, 108(H) <5 mIU/ml 06/19/2020 14:38 EST [facility] Comment: NOTE: : Negative: [...] & BLOOD GAS ORD ERABLES Final Result [facility] [address] [place] [address] documented in this encounter Visit Diagnoses Diagnosis of unknown anatomic location- Primary state, incidental documented in this encounter
--- OUTSIDE RECORDS SUMMARY | 2024-06-03 09:09 | XMS_ITS | Encounter Summary ---
Author Organization [facility] Address [address] [place] [address] Care Team Providers Care Fitting Supervisor Name Role Phone Unavailable Primary Care Provider Unavailabl e Reason for Visit * Reason Comments Telemedicine Video Visit Encounter Details Date Type Department Care Team (Late st Contact Info) Description 06/04/2020 12:00 EST Telemedicine [facility] Infectious Disease - [address] [phone] Mushtaq Light, DO [address] [facility], [address] [place] [address] Osteomyelitis of great toe of [...] 12/05/19- Spine- told years ago ??? Diabetes ([facility]) ? A1c 10.3 on 11/28/2019 ??? History [...] BODIES: None ?? 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 Attends sikhism service: Not on file ? Active member [...] few strep anginosus, moderate prevotella 05/03 covid-19 METAL DRILL OPERATOR swab: negative 05/04 blood cultures:06/09 bottles [...]
--- OUTSIDE RECORDS SUMMARY | 2024-06-03 09:09 | XMS_ITS | Encounter Summary ---
Author Organization [facility] Address [address] [place] [address] Care Team Providers Care Auditor Supervisor Name Role Phone Unavailable Primary Care [...]
--- OUTSIDE RECORDS SUMMARY | 2024-06-03 09:09 | XMS_ITS | Encounter Summary ---
Author Organization [facility] Address [address] [place] [address] Care Team Providers Care Balance Staff Inspector Name Role Phone Unavailable Primary Care [...]
--- OUTSIDE RECORDS SUMMARY | 2024-06-03 09:09 | XMS_ITS | Encounter Summary ---
Author Organization [facility] Address [address] [place] [address] Care Team Providers Care Film Critic Name Role Phone Unavailable Primary Care Provider Unavailabl e Reason for Visit * Reason Comments Diabetes Encounter Details Date Type Department Care Team (Latest Contact Info) Description 06/05/2020 14:00 EST Telemedicine [facility] Endocrinology - [facility] [address] [place], [place] [phone] Sara Zafar NP [address] [facility] [address] [place] [phone] Type 2 diabetes mellitus with left diabetic [...] APRN - 06/05/2020 1400 EST Subjective: [facility] [...] Dr. Srinivasan in 2009. 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 10/28/2019. Recurrent loss is attributed to to poorly controlled type 2 diabetes in conjunction with tobacco dependence. She saw QUARRYING MANAGER on 11/03/2018, and was advised to get [...] siblings, knows about 2, no DM. 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 Previous [...] and send BS. Freestyle Vignesh CGM ordered. [facility]. Novolog to 8-10 units 15 minute pre- [...] with left diabetic foot ulcer ([facility])- Primary Type II or unspecified type diabetes mellitus with other specified manifestations, not stated as uncontrolled Anxiety and depression Dysthymic disorder documented in this encounter Discontinued Medications Medication Sig Discontinue Reason Start Date End Da te gabapentin (NEURONTIN) 100 mg capsule Take 100 mg by mouth 3 times daily. 06/05/2020 documented as of this encounter
--- OUTSIDE RECORDS SUMMARY | 2024-06-03 09:09 | XMS_ITS | Encounter Summary ---
Author Organization [facility] Address [address] [place] [address] Care Team Providers Care Cuff Maker Name Role Phone Unavailable Primary Care Provider Unavailabl e Reason for Visit * Reason Comments Pre-op Exam toe Encounter Details Date Type Department Care Team (Latest Contact Info) Description 06/13/2020 15:30 EST Office Visit [facility] Adult Primary Care - [address] [address] Teodoro Alejandro PA-C [address] [place] [address] [place] [phone] Osteomyelitis of great toe of left [...] last A1c was 9.1. According to her [employer] scout, patient is instructed to take 32 units [...] told years ago ??? Depression ??? 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 PC Site ? Test Date: ?2020-06-13 Pat Name: ? CRISTY YOUNG ?Department: ?? [facility] ? Room: ? Gender: ? Female ? Hair Colorist: ?? [id number] : ?1985 ? Requested By: HUBERT Forman Order Number: [id number] ? Reading MD: ?? TEODORO ALEJANDRO PA-C ? Measurements Intervals ?[place] ? Rate: ? 94 ? P: ?59 PA: ? 156 ?QRS: ?34 QRSD: ? 89 [...] Date: 2020-06-13 Pat Name: CRISTY LUO Department: [facility] Room: Gender: Female Hair Colorist: [id number] : 1985 Requested By: HUBERT Forman Order Number: [id number] Reading MD: TEODORO ALEJANDRO PA-C Measurements Intervals [place] Rate: 94 P: 59 PA: 156 QRS: 34 QRSD: 89 T: 13 QT: 335 QTc: 420 Interpretive Statements SINUS RHYTHM Automated Interpretation. Provider Interpretation to follow. Compared to ECG 06/18/2019 08:28:09 No significant changes I reviewed the tracing and have either agreed or edited the findings inthis report. Electronically Signed On 06-13-2020 15:48:18 EST by TEODORO SPENCE us Teodoro Alejandro PA-C CARDIAC ECG ORDERABL ES Final Result [facility] EKG documented in this encounter Visit Diagnoses Diagnosis Osteomyelitis of great toe of left foot ([facility])- Primary Pre-op examination Preoperative examination, unspecified documented in this encounter
--- OUTSIDE RECORDS SUMMARY | 2024-06-03 09:09 | XMS_ITS | Encounter Summary ---
Author Organization [facility] Address [address] [place] [address] Care Team Providers Care Case Advocate Name Role Phone Unavailable Primary Care Provider [...]
--- OUTSIDE RECORDS SUMMARY | 2024-06-03 09:09 | XMS_ITS | Encounter Summary ---
Author Organization [facility] Address [address] [place] [address] Care Team Providers Care Collar Feller Name Role Phone Unavailable Primary Care Provider Unavailabl e Reason for Visit * Reason Onset Date Comments Appointment Related 06/12/2020 Encounter Details Date Type Department Care Team (Late st Contact Info) Description 06/12/2020 Telephone [facility] Endocrinology - [address] [facility] [address] [place] [address] Appointment Related Social History Tobacco [...]
--- OUTSIDE RECORDS SUMMARY | 2024-06-03 09:09 | XMS_ITS | Encounter Summary ---
Author Organization [facility] Address [address] [place] [address] Care Team Providers Care Architectural Job Captain Name Role Phone Unavailable Primary Care Provider Unavailabl e Reason for Visit * Reason Onset Date Comments Abnormal Lab 05/05/2020 Encounter Details Date Type Department Care Team ([facility] st Contact Info) Description 05/05/2020 Telephone [facility] Medicine [address] [address] Shari Grider, DO [address] [place] [address] Abnormal Lab Social History Tobacco Use Types [...] Telephone Encounter - Shari Grider, - 05/05/2020 0983 EST Lab called with critical result - blood culture positive for gram positive bacilli at 37 hours in 1/2 aerobic bottles. Case discussed with Dr. You who notes patient was well-appearing when she left AMA last night. Will check in with her tomorrow AM and let her outpatient care team know. Shari Grider DO 05/05/20 22:20 Family Medicine PGY-3 Pager #[phone] documented in this encounter Plan of Treatment Not on file documented as of this encounter Visit Diagnoses Not on filedocumented in this encounter
--- OUTSIDE RECORDS SUMMARY | 2024-06-03 09:09 | XMS_ITS | Encounter Summary ---
Author Organization [facility] Address [address] [place] [address] Care Team Providers Care Machine Maintenance Repairer Name Role Phone Unavailable Primary Care Provider Unavailabl e Reason for Visit * Reason Onset Date Comments Other 06/17/2020 Encounter Details Date Type Department Care Team (Late st Contact Info) Description 06/17/2020 Telephone [facility] Foot & Ankle Program - [address] [address] Elza Navarro [address] [place] [address] Other Social History Tobacco Use [...]
--- OUTSIDE RECORDS SUMMARY | 2024-06-03 09:09 | XMS_ITS | Encounter Summary ---
Author Organization [facility] Address [address] [place] [address] Care Team Providers Care Airways Control Specialist Name Role Phone Unavailable Primary Care Provider Unavailabl e Reason for Visit * Reason Comments Foot Problem * Follow Up (Routine/Next Available) - Receiving Office to Obtain Authorization Specialty Diagnoses / Procedures Referred By Kit goode Referred To Contact Podiatry Diagnoses Diabetic foot ulcer ([facility]) Carrington Mari MD [address] [place] [address] Phone: tel: fax: [facility] [address] [place] [address] Phone: tel: fax: Referral ID Status Reason Start Date Expiration Date Visits Requested Visits Authorized [id number] Receiving Office to Obtain Authorization Specialty Services Required 0 1 1 Encounter Details Date Type Department Care Team (Late st Contact Info) Description 05/14/2020 14:[address] [facility] Foot & Ankle Program - [address] [place] [address] Elza Navarro DPM [address] [place] [phone] Ulcer of great toe, left, with necrosis of bone ([facility]) (Primary Dx); Type 2 diabetes mellitus with diabetic polyneuropathy, with long-term current use of insulin ([facility]) Social History Tobacco Use Types Packs/Day [...] shoe andinsole. She has been taking the lptmopdpyuq-Iritmhvdr-tuhauqn any issues. She has been changing thedressing daily. Overall she is feeling well today. She denies pain in the toe. She denies nausea, vomiting, fever, chills. Patient Active Problem List Diagnosis Date Noted ??? 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 ([facility]) 05/03/2020 Priority: Medium ??? Osteomyelitis of great toe of left foot ([facility]) 03/12/2020 Priority: Medium ??? Diabetic foot ulcer associated with diabetes mellitus due to underlying condition ([facility]) 03/07/2020 Priority: Medium ??? Diabetic foot infection ([facility]) 03/06/2020 Priority: Medium ??? Diabetic foot [...] told years ago ??? Diabetes ([facility]) A1c 10.3 on 11/28/2019 ??? History [...] 27 mL 3 ??? lancets One Touch [employer] or other brand compatible with lancing device [...] left, with necrosis of bone ([facility]) 2. Type 2 diabetes mellitus with [...] with speech recognition software or keyboard database coordinator techniques. Minor irregularities or keyboarding misprints may be present documented in this encounter Plan of Treatment Not on file documented as of this encounter Visit Diagnoses Diagnosis Ulcer of great toe, left, with necrosis of bone ([facility])- Primary Type 2 diabetes mellitus with diabetic polyneuropathy, with long-term current use of insulin ([facility]) documented in this encounter
--- OUTSIDE RECORDS SUMMARY | 2024-06-03 09:09 | XMS_ITS | Encounter Summary ---
Author Organization [facility] Address [address] [place] [address] Care Team Providers Care Casting Chipper Name Role Phone Unavailable Primary Care Provider Unavailabl e Reason for Referral * CUTTER AND PRESSER (Routine) - Specialty Report Received Specialty Diagnoses / Procedures Referred By Contac t Referred To Contact Diagnoses of unknown anatomic location Procedures OB FIRST TRIMESTER (LESS THAN 14 WEEKS) TRANSVAGINAL David Martínez MD Phone: tel: fax: Referral ID Status Reason Start Date Expiration Date V isits Requested Visits Authorized [id number] Specialty Report Received 06/19/2020 1 1 Reason for Visit * Reason Onset Date Comments 06/18/2020 Encounter Details Date Type Department Care Team (Late st Contact Info) Description 06/18/2020 Telephone [facility] - [address] [address] Nohemy Sales MD [address] [facility], Level [address] [place] [address] Social History Tobacco Use Types [...] of Assessment Author No 05/04/2020 0:28 Sylvia Alejanrdo RN documented as of this encounter Mental [...] Tuesday - heavier on Tuesday and Tuesday, 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 Almonte - ideally should be NURSE AUDITOR provider managing at this time. Dr. Martínez [...] she is able to come down to [facility] lab for this lab draw and understands plan. She had no further questions and verbalized understanding of plan. Will follow up when bHCG comes back. * Telephone Encounter - Elza Nieves - 06/18/2020 0821 EST Have you been seen here before for OB care? Yes If yes, who did you see (Refer to if can???t remember)? [facility] on [address], diabetic. Reason for Call as described by [...] for us to reach you back at? [phone] What time of day is the best [...] Quant, 152(H) <5 mIU/ml 06/21/2020 11:01 EST [facility] Comment: NOTE: : Negative: [...] & BLOOD GAS ORD ERABLES Final Result [facility] [address] [place] [address] * US OB FIRST TRIMESTER (LESS THAN [...] Sufficient. Impression 1st Trimester OB scan ,transvaginal +[id number] There is no visualized gestational sac either [...] The adnexa appear normal. Follow-up Per the NURSE AUDITOR service. Comment ========= Results discussed w/patient. DATE [...] Sufficient. Impression 1st Trimester OB scan ,transvaginal +[id number] There is no visualized gestational sac either [...] The adnexa appear normal. Follow-up Per the NURSE AUDITOR service. Comment ========= Results discussed w/patient. DATE [...] Sufficient. Impression 1st Trimester OB scan ,transvaginal +[id number] There is no visualized gestational sac either [...] The adnexa appear normal. Follow-up Per the NURSE AUDITOR service. Comment ========= Results discussed w/patient. DATE OF SERVICE: 06/20/2020 David Martínez MD [facility] OB ORDERABLES Edit ed Result - Final * (ABNORMAL) QUANT BETA HCG, (06/19/2020 13:07 EST) Beta HCG Quant, 108(H) <5 mIU/ml 06/19/2020 14:38 EST [facility] Comment: NOTE: : Negative: Less than 5mIU/mL Indeterminant: Between 5 and 25 mIU/mL, recommend repeat testing in 48 hours Positive: Greater than 25 mIU/mL The results of this assay can be falsely lowered due to the consumption of Biotin. Blood VENOUS BLOOD / Unknown Venipuncture / Unknown 06/19/2020 13:07 EST 06/19/2020 13:54 EST us Daivd Martínez MD CHEMISTRY & BLOOD GAS ORD ERABLES Final Result [facility] [address] [place] [address] documented in this encounter Visit Diagnoses Diagnosis of unknown anatomic location- Primary state, incidental of unknown anatomic location state, incidental documented in this encounter
--- OUTSIDE RECORDS SUMMARY | 2024-06-03 09:09 | XMS_ITS | Encounter Summary ---
Author Organization [facility] Address [address] [place] [address] Care Team Providers Care Cushion Filler Name Role Phone Unavailable Primary Care Provider Unavailabl e Encounter Details Date Type Department Care Team (Late st Contact Info) Description 06/13/2020 Orders Only [facility] Adult Primary Care - [address] [address] Tonja Alejandro PA-C [address] [place] [address] [place] [phone] Tobacco abuse (Primary Dx) Social History [...]
--- OUTSIDE RECORDS SUMMARY | 2024-06-03 09:09 | XMS_ITS | Encounter Summary ---
Author Organization [facility] Address [address] [place] [address] Care Team Providers Care Time Study Statistician Name Role Phone Unavailable Primary Care Provider Unavailabl e Reason for Visit * Auth/Cert Specialty Diagnoses / Procedures Referred By Kit t Referred To Contact Diagnoses Encounter for sterilization Procedures ND LAP,RMV ADNEXAL STRUCTURE Laparoscopic Bilateral Salpingectomy Referral ID Status Reason Start Date Expiration Date Visits Re quested Visits Authorized [id number] 1 1 Encounter Details Date Type Department Care Team (Late st Contact Info) Description 06/16/2020 15:25 EST - 06/16/2020 16:40 EST Surgery [facility] [place] [address] [place] [address] Elza Navarro DPM [address] [place] [phone] Left great toe amputation [17965 (CPT??)] Surgery Details Date/Time Status Location OR Service Patient Class Case Cl ass Case Type Trauma Case? 06/16/2020 1525 Posted [facility] OR [facility] Orthopedics [facility] Outpatient Surgery H - Elective Panel [...] can be contacted during weekday officehours at [phone]. If there is an emergency, Dr. Navarro may also be contacted via pager by calling the [facility] at [phone] or [phone] (pager # [phone]). documented in this encounter Medications at Time [...] Notes * Silvia Mcdaniel RN - 06/16/2020 4747 EST Preop Covid DOS screening questionnaire Please [...] last A1c was 9.1. According to her lawn care worker, patient is instructed to take 32 [...] ??? Obesity, unspecified ??? Osteomyelitis ([facility]) of left great toe ??? Peripheral neuropathy [...] X Gastrointestinal x Intermittent nausea from antibiotics ICE MAKER x History of multiple miscarriages Musculoskeletal x [...] intrathoracic) 2. History of CAD (history of [place] or a positive ETT, current ischemic chest [...] Notes * Mallorie Marcial RN - 06/16/2020 9470 EST The Patient's Pre-Surgical/ Procedure test result is Positive. The Surgeon Dr. Navarro and the Anesthesiologist Have been Notified of the result. The Patient was counseled by anesthesia and Dr. Navarro regarding the Risks and Benefits of proceeding with the Surgery/ Procedure and Anesthesia. documented in this encounter OR Notes * OR Surgeon - Elza Navarro DPM - 06/16/2020 1315 EST OPERATIVE REPORT SERVICE DATE: 06/16/2020 SURGEON: Elza Navarro DPM SENIOR COURT OFFICE ASSISTANT: None. PREOPERATIVE DIAGNOSIS: Left great toe [...] retained. Elza Navarro DPM / DC Confirmation: [id number] Dictation ID: [id number] cc: documented in this encounter Miscellaneous Notes * Brief Op Note - Elza Navarro DPM - 06/16/2020 1644 EST Date: 06/16/2020 Location: [facility] OR Name: Cristy Luo, : [...] [E11.42, Z79.4] Procedures Left great toe amputation 65072 - ND AMPUTATION TOE,MT-P JT Surgeons * Elza Navarro DPM - Primary Procedure Summary Anesthesia: Monitor Anesthesia Care ASA: ASA status not filed in the log. Estimated Blood Loss: < 5 cc Total IV Fluids: per anesthesia Staff: Health Information Administrator: Cherie Mayes RN Scrub Person: Arturo Pelletier Patient Office Worker: Carlita Charles Indications: Stella Luo is an [...] protocol. Patient will call GUSTAVO Collado (Diabetes CAR COOPER) for any further questions regarding diabetes management pre op NAOMI NAVA RN * JOHN Note - Naomi Nava RN - 06/13/2020 0964 EST COVID 19 Screening Perioperative at time [...] instruct them to call us back at [phone] to report symptoms (If patient is in [...] Osteomyelitis of toe of left foot ([facility]) Type 2 diabetes mellitus with diabetic polyneuropathy, with long-term current use of insulin ([facility]) Special Needs Foot Set, Patient already has surgical shoe POCT GLUCOSE, INTERFACED Routine 06/16/2020 14:40 EST POCT CSN BARCODE URINE PREG TEST STAT 06/16/2020 14:22 EST documented in this encounter Results * PATHOLOGY - SCANNED (06/20/2020 11:10 EST) 06/20/2020 11:1 0 EST us Scan 2 [employer] LAB INFO SERVICE AND SUPPOR T & PHONE RESULT Final Result * SURGICAL PATHOLOGY (06/16/2020 16:21 EST) Final Diagnosis A. TOE, LEFT GREAT, AMPUTATION: - Acute osteomyelitis. - Disarticulated joint with no gross evidence of acute osteomyelitis. - Skin with ulceration and acute cellulitis. 06/19/2020 15:19 [facility] Attestation There was significant [...] unguis is pale yellow firm and unremarkable. Fitter Mechanic sections are submitted as follows: BLOCK SHIELDS A1-A2- underlying bone, acid decalcification A3- defect to skin and soft tissue margins EUNICE GUAJARDO(ASCP) 06/17/2020 11:11 06/19/2020 15:19 [facility] Resident/Cash w: Emory Nazario DO 06/19/2020 15:19 [facility] Performing Lab [facility] 15:19 [facility] Scanned Images 06/19/2020 15:19 [facility] Tissue AMPUTATION / Unknown 06/16/2020 16:21 EST 06/16/2020 21:33 EST Comment:Left great toe osteo myelitis us Elza Navarro DPM PATHOLOGY ORDERABLES Final Resu lt [facility] [address] [place] [address] * (ABNORMAL) ANAEROBE CULTURE/SMEAR(INC. AEROBES), OTHER (06/16/2020 16:21 EST) Organism ID Moderate Streptococcus agalactiae(A) 1 8:41 [facility] Comment:Penicillin and [...] MICROBIOLOGY - GENERAL ORDERABL ES Final Result [facility] [address] [place] [address] * (ABNORMAL) POCT GLUCOSE, INTERFACED (06/16/2020 14:40 EST) Glucose, POC 166(H) 70 - 100 mg/dL 06/16/2020 14:43 EST [facility] special service officer ID [id number] 06/16/2020 14:43 [facility] HN LAB POC COMMENT (GLUCOSE) Test Performed by Nursing Services 06/16/2020 14:43 [facility] Blood CAPILLARY BLOOD / Unknown 06/16/2020 14:40 EST 06/16/2020 14:43 EST us Elza Navarro DPM POINT OF CARE TEST ORDERABLES F inal Result Performing Organization Address City/[facility]/ZIP Co de Phone Number [facility] [address] [place] [address] * POCT CSN BARCODE URINE PREG TEST (06/16/2020 14:22 EST) Hold Hold 06/16/2020 16:30 EST [facility] Urine URINE SPECIMEN COLLECTION, CLEAN CATCH / Unknown 06/16/2020 14:22 EST 06/16/2020 14:22 EST us Tiff Salcedo MD LAB INFO SERVICE AND SUP PORT & PHONE RESULT Final Result Performing Organization Address City/[facility]/ZIP Co de Phone Number [facility] [address] [place] [address] documented in this encounter Visit Diagnoses Diagnosis [...]
--- OUTSIDE RECORDS SUMMARY | 2024-06-03 09:09 | XMS_ITS | Encounter Summary ---
Author Organization [facility] Address [address] [place] [address] Care Team Providers Care Nursing Service Director Name Role Phone Unavailable Primary Care Provider Unavailabl e Reason for Visit * Reason Onset Date Comments Labs Only 06/05/2020 covid pre op scr eening Encounter Details Date Type Department Care Team (Late st Contact Info) Description 06/05/2020 Orders Only [facility] Foot & Ankle Program - [address] [address] Elza Navarro DPM [address] [place] [phone] Osteomyelitis of left foot, unspecified type ([facility]) (Primary Dx) Social History Tobacco [...] rt-PCR Result Negative Negative 06/09/2020 16:34 EST [facility] Comment: This test has [...] history, and epidemiological information. Performed on the [employer] Fusion instrument Performing Lab [facility] 06/09/2020 16:34 EST [facility] Swab ENTIRE NASOPHARYNX / Unknown Swab / Unknown 06/09/2020 9:28 EST 06/09/2020 9:28 EST us Elza Navarro DPM MICROBIOLOGY - GENERAL ORDERABL ES Final Result [facility] [address] [place] [address] documented in this encounter Visit Diagnoses Diagnosis Osteomyelitis of left foot, unspecified type ([facility])- Primary documented in this encounter
--- OUTSIDE RECORDS SUMMARY | 2024-06-03 09:10 | XMS_ITS | Encounter Summary ---
Author Organization [facility] Address [address] [place] [address] Care Team Providers Care Dramatic Critic Name Role Phone Unavailable Primary Care [...]
--- OUTSIDE RECORDS SUMMARY | 2024-06-03 09:10 | XMS_ITS | Encounter Summary ---
Author Organization [facility] Address [address] [place] [address] Care Team Providers Care Bufferer Name Role Phone Unavailable Primary Care Provider Unavailabl e Encounter Details Date Type Department Care Team ([facility] Contact Info) Description 03/17/2020 Documentation Visit [facility] - [address] [place], [place] [address] Marcel Bustamante Social History Tobacco Use Types [...] MORALES RN 03/17/2020 14:59 * [place] - 03/17/2020 1217 EDT Patient: Cristy [...]
--- OUTSIDE RECORDS SUMMARY | 2024-06-03 09:10 | XMS_ITS | Encounter Summary ---
Author Organization [facility] Address [address] [place] [address] Care Team Providers Care Teletype Mechanic Name Role Phone Unavailable Primary Care Provider Unavailabl e Reason for Visit * Reason Comments Follow-up Encounter Details Date Type Department Care Team (Late st Contact Info) Description 04/18/2020 10:30 EST Office Visit [facility] Foot & Ankle Program - [address] [address] Elza Navarro DPM [address] [place] [phone] Ulcer of great toe, left, with necrosis of bone ([facility]) (Primary Dx); Type 2 diabetes mellitus with diabetic polyneuropathy, with long-term current use of insulin ([facility]) Social [...] Navarro DPM - 04/18/2020 0000 EST [facility] FOOT AND ANKLE PROGRAM PROGRESS / [...] Elza Navarro DPM / SWAPNIL Dictation ID: [id number] cc: documented in this encounter Plan of Treatment Not on file documented as of this encounter Visit Diagnoses Diagnosis Ulcer of great toe, left, with necrosis of bone ([facility])- Primary Type 2 diabetes mellitus with diabetic polyneuropathy, with long-term current use of insulin ([facility]) documented in this encounter
--- OUTSIDE RECORDS SUMMARY | 2024-06-03 09:10 | XMS_ITS | Encounter Summary ---
Author Organization [facility] Address [address] [place] [address] Care Team Providers Care Rubber Ball Finisher Name Role Phone Unavailable Primary Care [...]
--- OUTSIDE RECORDS SUMMARY | 2024-06-03 09:10 | XMS_ITS | Encounter Summary ---
Author Organization [facility] Address [address] [place] [address] Care Team Providers Care Cell Maker Name Role Phone Carrington Calderon MD Primary Care Provi anders Abigail Díaz Unavailable Carmelo Hendrickson Unavailable Unavailable Abigail Díaz Unavailable Encounter Details Date Type Department Care Team (Late st Contact Info) Description 03/25/2020 Lab Requisition [facility] Pathology & Laboratory Medicine - [address] [phone] Mushtaq Light, DO [address] [facility], [address] [place] [phone] Encounter for other general examination Social History [...] 0 - 20 mm/hr 03/25/2020 20:19 EDT [facility] Comment:Note: Sample greater than 4 hours old (but less than 12 hours) when tested. If refrigerated, sample is stable when tested within 12 hours of collection. Blood VENOUS BLOOD / Unknown 03/25/2020 13:25 EDT 03/25/2020 19:10 EDT Mushtaq Light DO HEMATOLOGY & PF4 ORDERABLES Final Result [facility] [address] [place] [address] * (ABNORMAL) COMPLETE BLOOD COUNT AND DIFFERENTIAL (03/25/2020 13:25 EDT) WBC 13.46(H) 4.00 - 12.40 K/cmm 03/25/2020 19:49 EDT [facility] RBC 4.59 3.86 - 5.04 M/cmm 03/25/2020 19:49 EDT [facility] Hemoglobin 13.8 11.6 - 15.2 gm/dL 03/25/2020 19:49 T [facility] HCT 40.3 34.9 - 44.4 % 03/25/2020 19:49 T [facility] MCV 88 81 - 98 fl 03/25/2020 19:49 EDT [facility] MCH 30.1 26.7 - 33.3 pg 03/25/2020 19:49 T [facility] MCHC 34.2 32.1 - 35.9 gm/dL 03/25/2020 19:49 [facility] RDW-CV 12.4 <14.7 % 03/25/2020 19:49 [facility] RDW-SD 40.0 <50.4 fl 03/25/2020 19:49 [facility] PLT 357 141 - 377 K/cmm 03/25/2020 19:49 [facility] MPV 10.1 9.5 - 12.7 fl 03/25/2020 19:49 [facility] % Neutrophils 52.3 % 03/25/2020 19:49 [facility] % Lymphocytes 36.8 % 03/25/2020 19:49 [facility] % Monocytes 7.3 % 03/25/2020 19:49 [facility] % Eosinophils 2.9 % 03/25/2020 19:49 [facility] % Basophils 0.5 % 03/25/2020 19:49 [facility] % Immature Grans 0.2 % 03/25/20 19:49 [facility] Absolute Neutrophils 7.04 2.20 - 8.85 K/cmm 03/25/2020 19:49 [facility] Absolute Lymphocytes 4.95(H) 1.09 - 3.30 K/cmm 03/25/2020 19:49 [facility] Absolute Monocytes 0.98(H) 0.10 - 0.80 K/cmm 03/25/2020 19:49 [facility] Absolute Eosinophils 0.39 0.03 - 0.61 K/cmm 03/25/2020 19:49 [facility] ABS Basophils 0.07 0.01 - 0.11 K/cmm 03/25/2020 19:49 [facility] Absolute Immature Grans 0.03 0.00 - 0.06 K/cmm 03/25/2020 19:49 [facility] Type of Differential: Auto 03/25/2020 19:49 [facility] Blood VENOUS BLOOD / Unknown 03/25/2020 13:25 EDT 03/25/2020 19:10 EDT Mushtaq Light DO PACKAGES & DNA PROBE ORDERA BLES Final Result Performing Organization Address City/[facility]/ZIP Co de Phone Number [facility] [address] [place] [address] * (ABNORMAL) CREATININE (03/25/2020 13:25 EDT) Creatinine 0.44(L) 0.52 - 1.04 mg/dL 03/25/2020 19:46 EDT [facility] eGFR 131 >60 mL/min/1.7 3m2 03/25/2020 19:46 EDT [facility] Comment:eGFR calculated gil curtis CKD-EPI equation for non- Americans. Multiply eGFR by 1.16 for patients. Blood VENOUS BLOOD / Unknown 03/25/2020 13:25 EDT 03/25/2020 19:10 EDT Mushtaq Light DO CHEMISTRY & BLOOD GAS ORDER HAILEY Final Result Performing Organization Address City/[facility]/ZIP Co de Phone Number [facility] [address] [place] [address] * C REACTIVE PROTEIN (03/25/2020 13:25 EDT) C-Reactive Protein <7.0 <10.0 mg/L 03/25/2020 19:46 EDT [facility] Blood VENOUS BLOOD / Unknown 03/25/2020 13:25 EDT 03/25/2020 19:10 EDT Mushtaq Light DO CHEMISTRY & BLOOD GAS ORDER HAILEY Final Result [facility] [address] [place] [address] documented in this encounter Visit Diagnoses Diagnosis Encounter for other general examination documented in this encounter Additional Health Concerns Infection Onset Date Last Indicated Resolved Time R/O COVID-19 08/04/2020 08/04/2020 08/04/2020 11:4 0 EST documented as of this encounter Care Teams Cell Maker Relationship Specialty Start Date End Date Carrington Calderon MD 1 [facility] [address] [place] [phone] PCP - General Internal Medicine - Primary Care 12/09/20 Abigail Díaz Configuration Management Consultant 04/21/23 01/03/24 Carmelo Hendrickson Coordinator 12/01/23 Abigail Díaz Configuration Management Consultant 01/04/24 documented as of this encounter
--- OUTSIDE RECORDS SUMMARY | 2024-06-03 09:10 | XMS_ITS | Encounter Summary ---
Author Organization [facility] Address [address] [place] [address] Care Team Providers Care Aircraft Metalsmith Name Role Phone Unavailable Primary Care Provider Unavailabl e Reason for Visit * Reason Comments Pain Follow-up Encounter Details Date Type Department Care Team (Late st Contact Info) Description 04/30/2020 8:30 EST Office Visit [facility] Ankle Program - [address] [address] Elza Navarro DPM [address] [place] [address] Ulcer of great toe, left, with necrosis of bone ([facility]) (Primary Dx); Type 2 diabetes mellitus with diabetic polyneuropathy, with long-term current use of insulin ([facility]) Social History Tobacco Use Types Packs/Day Years [...] Osteomyelitis of great toe of left foot ([facility]) 03/12/2020 Priority: Medium ??? Diabetic foot ulcer associated with diabetes mellitus due to underlying condition ([facility]) 03/07/2020 Priority: Medium ??? Diabetic foot infection ([facility]) 03/06/2020 Priority: Medium ??? Diabetic foot ulcer ([facility]) 03/06/2020 Priority: Medium ??? Cellulitis of great toe of left foot 11/26/2019 Priority: Medium ??? Chronic midline low back pain without sciatica 11/26/2019 Priority: Medium ??? Chronic left ear pain 09/04/2015 Priority: Medium ??? Encounter for sterilization 11/20/2019 ??? Family history of rheumatoid arthritis 09/04/2015 ??? Type 2 diabetes mellitus ([facility]) 09/03/2015 ??? Anxiety and depression 05/12/2010 ??? Migraine with aura and without status migrainosus, not intractable Past Medical History: Diagnosis Date ??? Anxiety ??? Arthritis 12/05/19- Spine- told years ago ??? Diabetes ([facility]) A1c 10.3 on 11/28/2019 ??? History of [...] 27 mL 3 ??? lancets [employer] or other brand compatible with lancing device [...] great toe, left, with necrosis of bone ([facility]) 2. Type 2 diabetes mellitus with diabetic polyneuropathy, with long-term current use of insulin ([facility]) No orders of the defined types were [...] speech recognition software or keyboard clinical data specialist techniques. Minor irregularities or keyboarding misprints may be present documented in this encounter Plan of Treatment Not on file documented as of this encounter Visit Diagnoses Diagnosis Ulcer of great toe, left, with necrosis of bone ([facility])- Primary Type 2 diabetes mellitus with diabetic polyneuropathy, with long-term current use of insulin ([facility]) documented in this encounter Historical Medications * This list may reflect changes made after this encounter. gabapentin (NEURONTIN) 100 mg capsule Take 100 mg by mouth 3 times daily. 06/05/2020 added in this encounter Orders Equipment Count Last Ordered Date First Orde red Date GENERIC ORTHO VENDOR DME 1 04/30/2020 documented in this encounter
--- OUTSIDE RECORDS SUMMARY | 2024-06-03 09:10 | XMS_ITS | Encounter Summary ---
Author Organization [facility] Address [address] [place] [address] Care Team Providers Care Lamp Shade Joiner Name Role Phone Unavailable Primary Care Provider Unavailabl e Reason for Visit * Reason Comments Telemedicine Video Visit Encounter Details Date Type Department Care Team (Late st Contact Info) Description 03/27/2020 13:30 EDT Telemedicine [facility] Infectious Disease - [address] [phone] Tonja Plascencia NP 111 [facility], [address] [place] [address] Osteomyelitis of great toe of [...] this encounter Progress Notes * Tonja Plascencia, MINE PROMOTOR - 03/27/2020 1330 EDT Infectious Disease Clinic [...] Plascencia ?? Patient location: [place], State: [place] Estimated driving distance from [place]: 25 miles. Demographics HPI: Cristy Luo [...]
--- OUTSIDE RECORDS SUMMARY | 2024-06-03 09:10 | XMS_ITS | Encounter Summary ---
Author Organization [facility] Address [address] [place] [address] Care Team Providers Care Mixing House Operator Name Role Phone Unavailable Primary Care Provider Unavailabl e Reason for Visit * Reason Comments Follow-up Encounter Details Date Type Department Care Team (Latest Contact Info) Description 04/07/2020 10:00 EST Office Visit [facility] [place] [address] Nurse, Id, RN Osteomyelitis of great toe [...]
--- OUTSIDE RECORDS SUMMARY | 2024-06-03 09:10 | XMS_ITS | Encounter Summary ---
Author Organization [facility] Address [address] [place] [address] Care Team Providers Care Puncher Name Role Phone Unavailable Primary Care Provider Unavailabl e Reason for Visit * Reason Onset Date Comments Home Health 04/01/2020 Encounter Details Date Type Department Care Team (Late st Contact Info) Description 04/01/2020 Telephone [facility] Infectious Disease - [address] [phone] Mushtaq Light, DO 111 [facility], [address] [place] [address] Home Health Social History Tobacco [...] Telephone Encounter - Smita Green - 04/01/2020 1837 EDT Kylah from [facility] states that she did picc dressing change and clave, but was not able to get the extension tubing off. Would like a call back with plan. [phone]. documented in this encounter Plan of Treatment Not on file documented as of this encounter Visit Diagnoses Not on filedocumented in this encounter
--- OUTSIDE RECORDS SUMMARY | 2024-06-03 09:10 | XMS_ITS | Encounter Summary ---
Author Organization [facility] Address [address] [place] [address] Care Team Providers Care Pipeline Operator Name Role Phone Carrington Calderon MD Primary Care Provi anders Abigail Díaz Unavailable [phone] Carmelo Hendrickson Unavailable Unavailable Abigail Díaz Unavailable [phone] Encounter Details Date Type Department Care Team (Late st Contact Info) Description 04/01/2020 Lab Requisition [facility] Pathology & Laboratory Medicine - [address] [phone] Mushtaq Light, DO [address] [facility], [address] [place] [phone] Encounter for other general examination Social History [...] (ABNORMAL) SED. RATE:WESTERGREN (04/01/2020 10:10 EDT) Pathologist [facility] Sed Rate 30(H) 0 - 20 mm/hr 04/01/2020 20:32 EDT [facility] Comment:Note: Sample greater than 4 hours old (but less than 12 hours) when tested. If refrigerated, sample is stable when tested within 12 hours of collection. Blood VENOUS BLOOD / Unknown Non-Lab Collect / Unknown 04/01/2020 10:10 EDT 04/01/2020 18:42 EDT Mushtaq Light DO HEMATOLOGY & PF4 ORDERABLES Final Result [facility] [address] [place] [address] * (ABNORMAL) COMPLETE BLOOD COUNT AND DIFFERENTIAL (04/01/2020 10:10 EDT) Pathologist [facility] WBC 10.42 4.00 - 12.40 K/cmm 04/01/2020 19:15 EDT [facility] RBC 4.54 3.86 - 5.04 M/cmm 04/01/2020 19:15 T [facility] Hemoglobin 13.7 11.6 - 15.2 gm/dL 04/01/2020 19:15 T [facility] HCT 40.9 34.9 - 44.4 % 04/01/2020 19:15 T [facility] MCV 90 81 - 98 fl 04/01/2020 19:15 EDT [facility] MCH 30.2 26.7 - 33.3 pg 04/01/2020 19:15 T [facility] MCHC 33.5 32.1 - 35.9 gm/dL 04/01/2020 19:15 [facility] RDW-CV 12.4 <14.7 % 04/01/2020 19:15 [facility] RDW-SD 40.9 <50.4 fl 04/01/2020 19:15 [facility] PLT 336 141 - 377 K/cmm 04/01/2020 19:15 [facility] MPV 10.5 9.5 - 12.7 fl 04/01/2020 19:15 [facility] % Neutrophils 48.0 % 04/01/2020 19:15 [facility] % Lymphocytes 38.5 % 04/01/2020 19:15 [facility] % Monocytes 8.1 % 04/01/2020 19:15 [facility] % Eosinophils 4.5 % 04/01/2020 19:15 [facility] % Basophils 0.7 % 04/01/2020 19:15 [facility] % Immature Grans 0.2 % 04/01/20 20 19:15 [facility] Absolute Neutrophils 5.01 2.20 - 8.85 K/cmm 04/01/2020 19:15 [facility] Absolute Lymphocytes 4.01(H) 1.09 - 3.30 K/cmm 04/01/2020 19:15 [facility] Absolute Monocytes 0.84(H) 0.10 - 0.80 K/cmm 04/01/2020 19:15 [facility] Absolute Eosinophils 0.47 0.03 - 0.61 K/cmm 04/01/2020 19:15 [facility] ABS Basophils 0.07 0.01 - 0.11 K/cmm 04/01/2020 19:15 [facility] Absolute Immature Grans 0.02 0.00 - 0.06 K/cmm 04/01/2020 19:15 [facility] Type of Differential: Auto 04/01/2020 19:15 [facility] Blood VENOUS BLOOD / Unknown Non-Lab Collect / Unknown 04/01/2020 10:10 EDT 04/01/2020 18:42 EDT Mushtaq Light DO PACKAGES & DNA PROBE ORDERA BLES Final Result [facility] [address] [place] [address] * (ABNORMAL) CREATININE (04/01/2020 10:10 EDT) Creatinine 0.37(L) 0.52 - 1.04 mg/dL 04/01/2020 19:10 EDT [facility] eGFR 139 >60 mL/min/1.7 3m2 04/01/2020 19:10 EDT [facility] Comment:eGFR calculated gil curtis CKD-EPI equation for non- Americans. Multiply eGFR by 1.16 for patients. Blood VENOUS BLOOD / Unknown Non-Lab Collect / Unknown 04/01/2020 10:10 EDT 04/01/2020 18:42 EDT Mushtaq Light DO CHEMISTRY & BLOOD GAS ORDER HAILEY Final Result Performing Organization Address [facility]/ZIP Co de Phone Number [facility] [address] [place] [address] * C REACTIVE PROTEIN (04/01/2020 10:10 EDT) C-Reactive Protein <7.0 <10.0 mg/L 04/01/2020 19:10 EDT [facility] Blood VENOUS BLOOD / Unknown Non-Lab Collect / Unknown 04/01/2020 10:10 EDT 04/01/2020 18:42 EDT Mushtaq Light DO CHEMISTRY & BLOOD GAS ORDER HAILEY Final Result [facility] [address] [place] [address] documented in this encounter Visit Diagnoses Diagnosis Encounter for other general examination documented in this encounter Additional Health Concerns Infection Onset Date Last Indicated Resolved Time R/O COVID-19 08/04/2020 08/04/2020 08/04/2020 11:4 0 EST documented as of this encounter Care Teams Pipeline Operator Relationship Specialty Start Date End Date Carrington Calderon MD 1 [facility] [address] [place] [address] PCP - General Internal Medicine - Primary Care 12/09/20 Abigail Díaz Ekg Tech 04/21/23 01/03/24 Carmelo Hendrickson Coordinator 12/01/23 Abigail Díaz Ekg Tech 01/04/24 documented as of this encounter
--- OUTSIDE RECORDS SUMMARY | 2024-06-03 09:10 | XMS_ITS | Encounter Summary ---
Author Organization [facility] Address [address] [place] [address] Care Team Providers Care Power Electronics Engineer Name Role Phone Carrington Calderon MD Primary Care Provi anders Reason for Visit * Reason Onset Date Comments Blood Sugar Problem 03/18/2020 low;75 Medication Questions 03/18/2020 insulin Encounter Details Date Type Department Care Team (Late st Contact Info) Description 03/18/2020 Telephone [facility] End[facility]ology - [facility] [address] [place] [address] Sara Zafar NP 62 [facility] [address] [place] [address] Blood Sugar Problem (low;75); Medication [...] documented as of this encounter Care Teams Power Electronics Engineer Relationship Specialty Start Date End Date Carrington Calderon MD 1 [facility] 1 [place] [phone] PCP - General Internal Medicine - Primary Care 12/09/20 documented as of this encounter
--- OUTSIDE RECORDS SUMMARY | 2024-06-03 09:10 | XMS_ITS | Encounter Summary ---
Author Organization [facility] Address [address] [place] [address] Care Team Providers Care Brewery Cellar Worker Name Role Phone Unavailable Primary Care Provider Unavailabl e Encounter Details Date Type Department Care Team ([facility] Contact Info) Description 03/21/2020 Documentation Visit [facility] - [address] [place] [address] Karthikeyan Crook, RN [address] [place] [address] Social History Tobacco Use Types Packs/Day Years [...] RN 03/21/2020 14:10 * [place] - 03/21/2020 2672 EDT Patient: Cristy Luo is a 35 [...]
--- OUTSIDE RECORDS SUMMARY | 2024-06-03 09:10 | XMS_ITS | Encounter Summary ---
Author Organization [facility] Address [address] [place] [address] Care Team Providers Care Mammographer Name Role Phone Unavailable Primary Care Provider Unavailabl e Reason for Visit * Reason Comments Telemedicine Video Visit Encounter Details Date Type Department Care Team (Late st Contact Info) Description 2020 13:00 EDT Telemedicine [facility] Infectious Disease - [address] [address] Tonja Plascencia, GUSTAVO 111 [facility], [address] [place] [address] Diabetic foot infection ([facility] [...] this encounter Progress Notes * Tonja Plascencia, BREAKER MACHINE OPERATOR - 2020 1300 EDT Infectious [...] Plascencia ?? Patient location: [place], State: [place] Estimated driving distance from [place]: 25 miles. Demographics HPI: Cristy Luo [...]
--- OUTSIDE RECORDS SUMMARY | 2024-06-03 09:10 | XMS_ITS | Encounter Summary ---
Author Organization [facility] Address [address] [place] [address] Care Team Providers Care Sap Bpc Architect Name Role Phone Unavailable Primary Care Provider Unavailabl e Reason for Visit * Reason Comments Diabetes Encounter Details Date Type Department Care Team (Latest Contact Info) Description 04/14/2020 13:30 EST Telemedicine [facility] Adult Primary Care - [address] [phone] Tonja Alejandro PA-C [address] [place] [address] [place] [phone] Polyneuropathy associated with underlying disease (HCC-CMS) [...] For patients, please refer to guidance in V[employer]maker on how to locate information. Generally this information will appear as a scanned documents saved in My Documents activity. * Tonja Alejandro PA-C - 04/14/2020 1330 EST [facility] ADULT PRIMARY CARE [place] PROGRESS / FOLLOWUP NOTE - 04/14/2020 CONSENT: [...] Tonja Alejandro PA-C / DB Dictation ID: [id number] cc: documented in this encounter Plan of [...]
--- OUTSIDE RECORDS SUMMARY | 2024-06-03 09:10 | XMS_ITS | Encounter Summary ---
Author Organization [facility] Address [address] [place] [address] Care Team Providers Care Brass Chaser Name Role Phone Unavailable Primary Care Provider Unavailabl e Reason for Visit * Reason Onset Date Comments Home Health 03/25/2020 Encounter Details Date Type Department Care Team (Late st Contact Info) Description 03/25/2020 Telephone [facility] Adult Primary Care - [address] [phone] Tonja Alejandro PA-C [facility] [address] [place] [phone] Home Health Social History Tobacco Use [...] - 03/25/2020 1606 EDT Kylah called from [facility] stating Patients Heart Rate has been elevated at 100-120 per min documented in this encounter Plan of Treatment Not on file documented as of this encounter Visit Diagnoses Not on filedocumented in this encounter
--- OUTSIDE RECORDS SUMMARY | 2024-06-03 09:10 | XMS_ITS | Encounter Summary ---
Author Organization [facility] Address [address] [place] [address] Care Team Providers Care Lighting Specialist Name Role Phone Carrington Calderon MD Primary Care Provi anders Abigail Díaz Unavailable [phone] Carmelo Hendrickson Unavailable Unavailable Abigail Díaz Unavailable Encounter Details Date Type Department Care Team (Late st Contact Info) Description 03/18/2020 Lab Requisition [facility] Pathology & Laboratory Medicine - [address] [address] Mushtaq Light, DO 111 [facility], [address] [place] [phone] Encounter for other general examination Social History [...] Assessment Author No 03/06/2020 23:00 EDT John Smiht RN * Because of a physical, mental, [...] 0 - 20 mm/hr 03/18/2020 18:51 EDT [facility] Comment:Note: Sample greater than 4 hours old (but less than 12 hours) when tested. If refrigerated, sample is stable when tested within 12 hours of collection. Blood VENOUS BLOOD / Unknown Non-Lab Collect / Unknown 03/18/2020 10:35 EDT 03/18/2020 16:41 EDT Mushtaq Light DO HEMATOLOGY & PF4 ORDERABLES Final Result [facility] [address] [place] [address] * (ABNORMAL) COMPLETE BLOOD COUNT AND DIFFERENTIAL (03/18/2020 10:35 EDT) WBC 11.64 4.00 - 12.40 K/cmm 03/18/2020 17:17 EDT [facility] RBC 4.54 3.86 - 5.04 M/cmm 03/18/2020 17:17 T [facility] Hemoglobin 13.9 11.6 - 15.2 gm/dL 03/18/2020 17:17 T [facility] HCT 40.9 34.9 - 44.4 % 03/18/2020 17:17 T [facility] MCV 90 81 - 98 fl 03/18/2020 17:17 EDT [facility] MCH 30.6 26.7 - 33.3 pg 03/18/2020 17:17 T [facility] MCHC 34.0 32.1 - 35.9 gm/dL 03/18/2020 17:17 [facility] RDW-CV 12.4 <14.7 % 03/18/2020 17:17 [facility] RDW-SD 40.8 <50.4 fl 03/18/2020 17:17 [facility] PLT 462(H) 141 - 377 K/cmm 03/18/2020 17:17 [facility] MPV 10.5 9.5 - 12.7 fl 03/18/2020 17:17 [facility] % Neutrophils 55.0 % 03/18/2020 17:17 [facility] % Lymphocytes 33.0 % 03/18/2020 17:17 [facility] % Monocytes 7.4 % 03/18/2020 17:17 [facility] % Eosinophils 3.4 % 03/18/2020 17:17 [facility] % Basophils 0.7 % 03/18/2020 17:17 [facility] % Immature Grans 0.5 % 03/18/20 20 17:17 [facility] Absolute Neutrophils 6.41 2.20 - 8.85 K/cmm 03/18/2020 17:17 [facility] Absolute Lymphocytes 3.84(H) 1.09 - 3.30 K/cmm 03/18/2020 17:17 [facility] Absolute Monocytes 0.86(H) 0.10 - 0.80 K/cmm 03/18/2020 17:17 [facility] Absolute Eosinophils 0.39 0.03 - 0.61 K/cmm 03/18/2020 17:17 [facility] ABS Basophils 0.08 0.01 - 0.11 K/cmm 03/18/2020 17:17 [facility] Absolute Immature Grans 0.06 0.00 - 0.06 K/cmm 03/18/2020 17:17 [facility] Type of Differential: Auto 03/18/2020 17:17 [facility] Blood VENOUS BLOOD / Unknown Non-Lab Collect / Unknown 03/18/2020 10:35 EDT 03/18/2020 16:41 EDT Mushtaq Light DO PACKAGES & DNA PROBE ORDERA BLES Final Result Performing Organization Address [facility]/ZIP Co de Phone Number [facility] [address] [place] [address] * (ABNORMAL) CREATININE (03/18/2020 10:35 EDT) Creatinine 0.41(L) 0.52 - 1.04 mg/dL 03/18/2020 17:17 EDT [facility] eGFR 135 >60 mL/min/1.7 3m2 03/18/2020 17:17 EDT [facility] Comment:eGFR calculated gil curtis CKD-EPI equation for non- Americans. Multiply eGFR by 1.16 for patients. Blood VENOUS BLOOD / Unknown Non-Lab Collect / Unknown 03/18/2020 10:35 EDT 03/18/2020 16:41 EDT us Mushtaq Light DO CHEMISTRY & BLOOD GAS ORDER HAILEY Final Result Performing Organization Address [facility] Co de Phone Number [facility] [address] [place] [address] * C REACTIVE PROTEIN (03/18/2020 10:35 EDT) C-Reactive Protein <7.0 <10.0 mg/L 03/18/2020 17:17 EDT [facility] Blood VENOUS BLOOD / Unknown Non-Lab Collect / Unknown 03/18/2020 10:35 EDT 03/18/2020 16:41 EDT Mushtaq Light DO CHEMISTRY & BLOOD GAS ORDER HAILEY Final Result [facility] [address] [place] [address] documented in this encounter Visit Diagnoses Diagnosis Encounter for other general examination documented in this encounter Additional Health Concerns Infection Onset Date Last Indicated Resolved Time R/O COVID-19 08/04/2020 08/04/2020 08/04/2020 11:4 0 EST documented as of this encounter Care Teams Lighting Specialist Relationship Specialty Start Date End Date Carrington Calderon MD 1 [facility] 1 [place] [phone] PCP - General Internal Medicine - Primary Care 12/09/20 Abigail Díaz Strength And Conditioning Coach 04/21/23 01/03/24 Carmelo Hendrickson Coordinator 12/01/23 Abigail Díaz Strength And Conditioning Coach 01/04/24 documented as of this encounter
--- OUTSIDE RECORDS SUMMARY | 2024-06-03 09:10 | XMS_ITS | Encounter Summary ---
Author Organization [facility] Address [address] [place] [address] Care Team Providers Care Bin Cleaner Name Role Phone Carrington Calderon MD Primary Care Provi anders Abigail Díaz Unavailable Carmelo Hendrickson Unavailable Unavailable Abigail Díaz Unavailable Encounter Details Date Type Department Care Team (Late st Contact Info) Description 06/23/2020 Lab Requisition [facility] Pathology & Laboratory Medicine - [address] [address] Mushtaq Light, DO 111 [facility], [address] [place] [phone] Other chronic hematogenous osteomyelitis, left ankle and [...] EST) % Neutrophils 48.0 % 07/03/2020 12:50 [facility] % Bands 1.0 % 07/03/2020 12:50 [facility] % Lymphocytes 40.0 % 07/03/2020 12:50 [facility] % Atypical Lymphocytes 4.0 % 07/03/2020 12:50 [facility] % Monocytes 5.0 % 07/03/2020 12:50 [facility] % Eosinophils 1.0 % 07/03/2020 12:50 [facility] % Basophils 1.0 % 07/03/2020 12:50 [facility] Absolute Neutrophils 6.40 2.20 - 8.85 K/cmm 07/03/2020 12:50 [facility] Absolute Bands 0.13 K/cmm 07/03/2020 12:50 [facility] Absolute Lymphocytes 5.33(H) 1.09 - 3.30 K/cmm 07/03/2020 12:50 [facility] Absolute Atypical Lymphocytes 0.53 K/cmm 07/03/2020 12:50 [facility] Absolute Monocytes 0.67 0.10 - 0.80 K/cmm 07/03/2020 12:50 [facility] Absolute Eosinophils 0.13 0.03 - 0.61 K/cmm 07/03/2020 12:50 [facility] ABS Basophils 0.13(H) 0.01 - 0.11 K/cmm 07/03/2020 12:50 [facility] Blood VENOUS BLOOD / Unknown 04/15/2020 11:28 EST 06/23/2020 15:27 EST Mushtaq Light DO HEMATOLOGY & PF4 ORDERABLES Final Result Performing Organization Address City/[facility]/ZIP Co de Phone Number [facility] [address] [place] [address] * (ABNORMAL) SED. RATE:ILEANAERGREN (04/15/2020 11:28 EST) Sed Rate 25(H) 0 - 20 mm/hr 07/03/2020 12:51 [facility] Blood VENOUS BLOOD / Unknown 04/15/2020 11:28 EST 06/23/2020 15:27 EST Mushtaq Light DO HEMATOLOGY & PF4 ORDERABLES Final Result Performing Organization Address City/[facility]/ZIP Co de Phone Number [facility] [address] [place] [address] * (ABNORMAL) COMPLETE BLOOD COUNT AND DIFFERENTIAL (04/15/2020 11:28 EST) WBC 13.33(H) 4.00 - 12.40 K/cmm 07/03/2020 12:50 [facility] RBC 4.38 3.86 - 5.04 M/cmm 07/03/2020 12:50 [facility] Hemoglobin 13.5 11.6 - 15.2 gm/dL 07/03/2020 12:50 [facility] HCT 38.6 34.9 - 44.4 % 07/03/2020 12:50 [facility] MCV 88 81 - 98 fl 07/03/2020 12:50 [facility] MCH 30.8 26.7 - 33.3 pg 07/03/2020 12:50 [facility] MCHC 35.0 32.1 - 35.9 gm/dL 07/03/2020 12:50 [facility] RDW-CV 12.5 <14.7 % 07/03/2020 12:50 [facility] RDW-SD 40.6 <50.4 fl 07/03/2020 12:50 [facility] PLT 344 141 - 377 K/cmm 07/03/2020 12:50 [facility] MPV 9.8 9.5 - 12.7 fl 07/03/2020 12:50 [facility] Type of Differential: Manual 07/03/2020 12:50 [facility] Blood VENOUS BLOOD / Unknown 04/15/2020 11:28 EST 06/23/2020 15:27 EST Mushtaq Light DO PACKAGES & DNA PROBE ORDERA BLES Final Result [facility] [address] [place] [address] * (ABNORMAL) CREATININE (04/15/2020 11:28 EST) Creatinine 0.43(L) 0.52 - 1.04 mg/dL 06/30/2020 12:01 [facility] eGFR 132 >60 mL/min/1.7 3m2 06/30/2020 12:01 [facility] Comment:eGFR calculated gil curtis CKD-EPI equation for non- Americans. Multiply eGFR by 1.16 for patients. Blood VENOUS BLOOD / Unknown 04/15/2020 11:28 EST 06/23/2020 15:27 EST us Mushtaq Light DO CHEMISTRY & BLOOD GAS ORDER HAILEY Final Result Performing Organization Address City/[facility]/ZIP Co de Phone Number [facility] [address] [place] [address] * C REACTIVE PROTEIN (04/15/2020 11:28 EST) C-Reactive Protein <7.0 <10.0 mg/L 06/30/2020 12:01 EST [facility] Blood VENOUS BLOOD / Unknown 04/15/2020 11:28 EST 06/23/2020 15:27 EST us Mushtaq Light DO CHEMISTRY & BLOOD GAS ORDER HAILEY Final Result Performing Organization Address [facility] Co de Phone Number [facility] [address] [place] [address] documented in this encounter Visit Diagnoses Diagnosis Other chronic hematogenous osteomyelitis, left ankle and foot (HCC-CMS) documented in this encounter Additional Health Concerns Infection Onset Date Last Indicated Resolved Time R/O COVID-19 08/04/2020 08/04/2020 08/04/2020 11:4 0 EST documented as of this encounter Care Teams Bin Cleaner Relationship Specialty Start Date End Date Carrington Calderon MD 1 [facility] 1 [place] [address] PCP - General Internal Medicine - Primary Care 12/09/20 Abigail Díaz Egg Crater 04/21/23 01/03/24 Carmelo Hendrickson Coordinator 12/01/23 Abigail Díaz Egg Crater 01/04/24 documented as of this encounter
--- OUTSIDE RECORDS SUMMARY | 2024-06-03 09:10 | XMS_ITS | Encounter Summary ---
Author Organization [facility] Address [address] [place] [address] Care Team Providers Care Inspecting Supervisor Name Role Phone Unavailable Primary Care Provider Unavailabl e Reason for Visit * Reason Onset Date Comments Medications Refill 03/21/2020 Encounter Details Date Type Department Care Team (Late st Contact Info) Description 03/21/2020 Refill [facility] Endocrinology - [facility] [address] [place], [place] [id number] Sara Zafar NP [address] [facility] [address] [place] [address] Medications Refill Social History Tobacco [...] Telephone Encounter - Foreign Parr - 03/21/2020 0822 EDT Medication(s) Requested Novolog 9 units after [...]
--- OUTSIDE RECORDS SUMMARY | 2024-06-03 09:10 | XMS_ITS | Encounter Summary ---
Author Organization [facility] Address [address] [place] [address] Care Team Providers Care Bodily Injury Adjuster Name Role Phone Unavailable Primary Care Provider Unavailabl e Encounter Details Date Type Department Care Team (Late st Contact Info) Description 03/18/2020 Orders Only [facility] Endocrinology - [facility] [address] [place] [address] Sara Zafar, GUSTAVO 62 [facility] [address] [place] [address] Type 2 diabetes mellitus with hyperglycemia, with long-term current use of insulin ([facility]) (Primary Dx) Social History Tobacco Use [...] hyperglycemia, with long-term current use of insulin ([facility])- Primary documented in this encounter
--- OUTSIDE RECORDS SUMMARY | 2024-06-03 09:10 | XMS_ITS | Encounter Summary ---
Author Organization [facility] Address [address] [place] [address] Care Team Providers Care Finishing Machine Tender Name Role Phone Unavailable Primary Care Provider Unavailabl e Encounter Details Date Type Department Care Team ([facility] Contact Info) Description 03/13/2020 Documentation Visit [facility] - [address] [place] [address] Natasha Crook, RN [address] [place] [address] Social History Tobacco Use Types Packs/Day Years [...] 03/06/2020 23:00 EDT John Smiht RN * Do you have serious difficulty [...]
--- OUTSIDE RECORDS SUMMARY | 2024-06-03 09:10 | XMS_ITS | Encounter Summary ---
Author Organization [facility] Address [address] [place] [address] Care Team Providers Care Retail Client Solutions Analyst Name Role Phone Unavailable Primary Care Provider Unavailabl e Reason for Visit * Reason Onset Date Comments Coordination Of Care 03/12/2020 Encounter Details Date Type Department Care Team (Late st Contact Info) Description 03/12/2020 Telephone [facility] Adult Primary Care - [address] [address] Tonja Alejandro PA-C [facility] [address] [place] [phone] Coordination Of Care Social History Tobacco [...]
--- OUTSIDE RECORDS SUMMARY | 2024-06-03 09:10 | XMS_ITS | Encounter Summary ---
Author Organization [facility] Address [address] [place] [address] Care Team Providers Care Winder Fixer Name Role Phone Unavailable Primary Care Provider Unavailabl e Reason for Visit * Reason Comments Follow-up Encounter Details Date Type Department Care Team (Late st Contact Info) Description 04/16/2020 9:30 EST Telemedicine [facility] Infectious Disease - [address] [phone] Mushtaq Light, DO 111 [facility], [address] [place] [address] Osteomyelitis of great toe of [...] For patients, please refer to guidance in [employer] on how to locate information. Generally this information will appear as a scanned documents saved in My Documents activity. documented in this encounter Plan of Treatment Not on file documented as of this encounter Visit Diagnoses Diagnosis Osteomyelitis of great toe of left foot (HCC-CMS)- Primary documented in this encounter
--- OUTSIDE RECORDS SUMMARY | 2024-06-03 09:10 | XMS_ITS | Encounter Summary ---
Author Organization [facility] Address [address] [place] [address] Care Team Providers Care Radiologic Tech Name Role Phone Unavailable Primary Care Provider Unavailabl e Reason for Visit * Reason Comments Foot Problem Encounter Details Date Type Department Care Team (Late st Contact Info) Description 03/25/2020 8:30 EDT Office Visit [facility] Foot & Ankle Program - [address] [address] Elza Navarro DPM [address] [place] [phone] Ulcer of great toe, left, with necrosis of bone ([facility]) (Primary Dx); Type 2 diabetes mellitus with diabetic polyneuropathy, with long-term current use of insulin ([facility]) Social History Tobacco Use Types [...] great toe, left, with necrosis of bone ([facility]) 2. Type 2 diabetes mellitus [...] prepared with speech recognition software or keyboard datastage developer techniques. Minor irregularities or keyboarding misprints may be present * Swathi Tesfaye LPN - 03/25/2020 0830 EDT Call to [facility] with wound care orders. SWATHI TESFAYE LPN documented in this encounter Plan of Treatment Not on file documented as of this encounter Visit Diagnoses Diagnosis Ulcer of great toe, left, with necrosis of bone ([facility])- Primary Type 2 diabetes mellitus with diabetic polyneuropathy, with long-term current use of insulin ([facility]) documented in this encounter
--- OUTSIDE RECORDS SUMMARY | 2024-06-03 09:10 | XMS_ITS | Encounter Summary ---
Author Organization [facility] Address [address] [place] [address] Care Team Providers Care Intelligence Officer Basic Name Role Phone Unavailable Primary Care Provider Unavailabl e Reason for Visit * Reason Comments Follow-up Encounter Details Date Type Department Care Team (Late st Contact Info) Description 04/03/2020 13:30 EDT Telemedicine [facility] Infectious Disease - [address] [phone] Tonja Plascencia NP 111 [facility], [address] [place] [address] Osteomyelitis of great toe of [...] For patients, please refer to guidance in [facility] on how to locate information. Generally this information will appear as a scanned documents saved in My Documents activity. documented in this encounter Plan of Treatment Not on file documented as of this encounter Visit Diagnoses Diagnosis Osteomyelitis of great toe of left foot (HCC-CMS)- Primary documented in this encounter
--- OUTSIDE RECORDS SUMMARY | 2024-06-03 09:10 | XMS_ITS | Encounter Summary ---
Author Organization [facility] Address [address] [place] [address] Care Team Providers Care Injection Molding Machine Operator Name Role Phone Unavailable Primary Care Provider Unavailabl e Encounter Details Date Type Department Care Team ([facility] Contact Info) Description 03/31/2020 Documentation Visit [facility] Home [facility]fusion Pharmacy - [address] [place], [place] [address] Mina Peng RN Social History Tobacco Use [...] RN 03/31/2020 10:11 * Xander Wild Guido, [facility] - 03/31/2020 0955 EDT Patient: Cristy Luo [...] Will deliver to patients home tomorrow via [employer]. Will continue to monitor per care plan and reassess next week. GUIDO LI RPH 03/31/2020 16:11 documented in this encounter Plan of Treatment Not on file documented as of this encounter Visit Diagnoses Not on filedocumented in this encounter
--- OUTSIDE RECORDS SUMMARY | 2024-06-03 09:10 | XMS_ITS | Encounter Summary ---
Author Organization [facility] Address [address] [place] [address] Care Team Providers Care Production Control Scheduler Name Role Phone Carrington Calderon MD Primary Care Provi anders Abigail Díaz Unavailable Carmelo Hendrickson Unavailable Unavailable Abigail Díaz Unavailable Encounter Details Date Type Department Care Team (Late st Contact Info) Description 06/19/2020 Lab Requisition [facility] Pathology & Laboratory Medicine - [address] [address] Mushtaq Light, DO 111 [facility], [address] [place] [phone] Other acute osteomyelitis, left ankle and foot [...] 29(H) 0 - 20 mm/hr 07/01/2020 9:21 [facility] Blood VENOUS BLOOD / Unknown 04/08/2020 12:00 EST 06/19/2020 10:05 EST us Mushtaq Light DO HEMATOLOGY & PF4 ORDERABLES Final Result [facility] [address] [place] [address] * (ABNORMAL) COMPLETE BLOOD COUNT AND DIFFERENTIAL (04/08/2020 12:00 EST) WBC 13.10(H) 4.00 - 12.40 K/cmm 07/01/2020 9:20 [facility] RBC 4.42 3.86 - 5.04 M/cmm 07/01/2020 9:20 [facility] Hemoglobin 13.3 11.6 - 15.2 gm/dL 07/01/2020 9:20 [facility] HCT 38.1 34.9 - 44.4 % 07/01/2020 9:20 [facility] MCV 86 81 - 98 fl 07/01/2020 9:20 [facility] MCH 30.1 26.7 - 33.3 pg 07/01/2020 9:20 [facility] MCHC 34.9 32.1 - 35.9 gm/dL 07/01/2020 9:20 [facility] RDW-CV 12.5 <14.7 % 07/01/2020 9:20 [facility] RDW-SD 39.4 <50.4 fl 07/01/2020 9:20 [facility] PLT 336 141 - 377 K/cmm 07/01/2020 9:20 [facility] MPV 10.1 9.5 - 12.7 fl 07/01/2020 9:20 [facility] % Neutrophils 54.3 % 07/01/2020 9:20 [facility] % Lymphocytes 34.2 % 07/01/2020 9:20 [facility] % Monocytes 7.4 % 07/01/2020 9:20 [facility] % Eosinophils 3.4 % 07/01/2020 9:20 [facility] % Basophils 0.5 % 07/01/2020 9:20 [facility] % Immature Grans 0.2 % 07/01/19 9:20 [facility] Absolute Neutrophils 7.10 2.20 - 8.85 K/cmm 07/01/2020 9:20 [facility] Absolute Lymphocytes 4.48(H) 1.09 - 3.30 K/cmm 07/01/2020 9:20 [facility] Absolute Monocytes 0.97(H) 0.10 - 0.80 K/cmm 07/01/2020 9:20 [facility] Absolute Eosinophils 0.45 0.03 - 0.61 K/cmm 07/01/2020 9:20 [facility] ABS Basophils 0.07 0.01 - 0.11 K/cmm 07/01/2020 9:20 [facility] Absolute Immature Grans 0.03 0.00 - 0.06 K/cmm 07/01/2020 9:20 [facility] Type of Differential: Auto 07/01/2020 9:20 EST [facility] Blood VENOUS BLOOD / Unknown 04/08/2020 12:00 EST 06/19/2020 10:05 EST Mushtaq Light DO PACKAGES & DNA PROBE ORDERA BLES Final Result Performing Organization Address City/[facility]/ZIP Co de Phone Number [facility] [address] [place] [address] * (ABNORMAL) CREATININE (04/08/2020 12:00 EST) Creatinine 0.42(L) 0.52 - 1.04 mg/dL 06/30/2020 12:00 EST [facility] eGFR 133 >60 mL/min/1.7 3m2 06/30/2020 12:00 EST [facility] Comment:eGFR calculated gil curtis CKD-EPI equation for non- Americans. Multiply eGFR by 1.16 for patients. Blood VENOUS BLOOD / Unknown 04/08/2020 12:00 EST 06/19/2020 10:05 EST Mushtaq Light DO CHEMISTRY & BLOOD GAS ORDER HAILEY Final Result Performing Organization Address [facility] Co de Phone Number [facility] [address] [place] [address] * C REACTIVE PROTEIN (04/08/2020 12:00 EST) C-Reactive Protein 7.7 <10.0 mg/L 06/30/2020 12:00 EST [facility] Blood VENOUS BLOOD / Unknown 04/08/2020 12:00 EST 06/19/2020 10:05 EST Mushtaq Light DO CHEMISTRY & BLOOD GAS ORDER HAILEY Final Result Performing Organization Address City/[facility]/ZIP Co de Phone Number [facility] [address] [place] [address] documented in this encounter Visit Diagnoses Diagnosis Other acute osteomyelitis, left ankle and foot (HCC-CMS) documented in this encounter Additional Health Concerns Infection Onset Date Last Indicated Resolved Time R/O COVID-19 08/04/2020 08/04/2020 08/04/2020 11:4 0 EST documented as of this encounter Care Teams Production Control Scheduler Relationship Specialty Start Date End Date Carrington Calderon MD 1 [facility] 1 [place] [phone] PCP - General Internal Medicine - Primary Care 12/09/20 Abigail Díaz Annual Giving Officer 04/21/23 01/03/24 Carmelo Hendrickson Coordinator 12/01/23 Abigail Díaz Annual Giving Officer 01/04/24 documented as of this encounter
--- OUTSIDE RECORDS SUMMARY | 2024-06-03 09:10 | XMS_ITS | Encounter Summary ---
Author Organization [facility] Address [address] [place] [address] Care Team Providers Care Security Rover Name Role Phone Unavailable Primary Care Provider Unavailabl e Reason for Visit * Reason Onset Date Comments Home Health 04/01/2020 Telemedicine Video Visit 04/01/2020 Encounter Details Date Type Department Care Team (Late st Contact Info) Description 04/01/2020 Telephone [facility] Adult Primary Care [address] [phone] Tonja Alejandro PA-C [address] [place] [address] [place] [phone] Home Health; Telemedicine Video Visit Social [...] Zoom appt ID: [id number] [id number]: [id number] * Telephone Encounter - Jesi Lua RN [...] 1635 EDT Kylah is calling from [facility] to state patient is frustrated [...]
--- OUTSIDE RECORDS SUMMARY | 2024-06-03 09:11 | XMS_ITS | Encounter Summary ---
Author Organization [facility] Address [address] [place] [address] Care Team Providers Care Journeyman Electrician Pv Installer Name Role Phone Unavailable Primary Care Provider Unavailabl e Reason for Visit * Reason Onset Date Comments Medication Problem 11/27/2019 Encounter Details Date Type Department Care Team (Late st Contact Info) Description 11/27/2019 Telephone [facility] Adult Primary Care - [address] [address] Tonja Alejandro PA-C [facility] [address] [place] [phone] Medication Problem Social History Tobacco Use [...] Porras - 11/27/2019 0903 EDT [facility] states insulin glargine is dispensed in [...]
--- OUTSIDE RECORDS SUMMARY | 2024-06-03 09:11 | XMS_ITS | Encounter Summary ---
Author Organization [facility] Address [address] [place] [address] Care Team Providers Care Plastic Extruding Machine Operator Name Role Phone Unavailable Primary Care Provider Unavailabl e Encounter Details Date Type Department Care Team (Late st Contact Info) Description 11/28/2019 Orders Only [facility] Radiology - [facility] [place] [address] [place] [address] Tracey Veloz MD [address] [place], [place] [phone] Social History Tobacco Use Types Packs/Day Years [...]
--- OUTSIDE RECORDS SUMMARY | 2024-06-03 09:11 | XMS_ITS | Encounter Summary ---
Author Organization [facility] Address [address] [place] [address] Care Team Providers Care Surveillance Systems Analyst Name Role Phone Unavailable Primary Care Provider Unavailabl e Encounter Details Date Type Department Care Team (Late st Contact Info) Description 01/03/2020 Orders Only [facility] Adult Primary Care - [address] [address] Tonja Alejandro PA-C [address] [place] [address] [place] [phone] Social History Tobacco Use Types Packs/Day [...]
--- OUTSIDE RECORDS SUMMARY | 2024-06-03 09:11 | XMS_ITS | Encounter Summary ---
Author Organization [facility] Address [address] [place] [address] Care Team Providers Care Physician Compensation Analyst Name Role Phone Unavailable Primary Care Provider Unavailabl e Reason for Visit * Reason Comments Social Work Encounter Details Date Type Department Care Team (Late st Contact Info) Description 11/26/2019 Community Health Team [facility] - [address] [address] Eryn Diaz Social History Tobacco Use Types [...] participate in a loss support group via [email or web address] (has for the past couple years) - [...] 2019 Time: 11 AM With: Eryn Diaz Mine Shifter Location: zoom Status: Active documented in this encounter Plan of Treatment Not on file documented as of this encounter Visit Diagnoses Not on filedocumented in this encounter
--- OUTSIDE RECORDS SUMMARY | 2024-06-03 09:11 | XMS_ITS | Encounter Summary ---
Author Organization [facility] Address [address] [place] [address] Care Team Providers Care Milling Machine Tender Name Role Phone Unavailable Primary [...]
--- OUTSIDE RECORDS SUMMARY | 2024-06-03 09:11 | XMS_ITS | Encounter Summary ---
Author Organization [facility] Address [address] [place] [address] Care Team Providers Care Gas Station Supervisor Name Role Phone Unavailable Primary [...]
--- OUTSIDE RECORDS SUMMARY | 2024-06-03 09:11 | XMS_ITS | Encounter Summary ---
Author Organization [facility] Address [address] [place] [address] Care Team Providers Care Front End Mechanic Name Role Phone Unavailable Primary Care [...] Expiration Date Visits Re quested Visits Authorized [id number] Closed 11/28/2019 1 1 Reason for Visit * Radiology Services (Routine) - Closed Specialty Diagnoses / Procedures Referred By Contac t Referred To Contact Radiology Diagnoses Left foot pain Sore on toe (HCC-CMS) Procedures MR FOOT W WO CONTRAST LEFT Tonja Alejandro PA-C Phone: tel: fax: Referral ID Status Reason Start Date Expiration Date Visits Re quested Visits Authorized [id number] Closed 11/28/2019 1 1 Encounter Details Date Type Department Care Team (Latest Contact Info) Description 12/05/2019 6:33 EDT - 12/05/2019 10:29 EDT Hospital Encounter Medical Center Radiology [facility] - [facility] [place] [address], [place] [id number] Left foot pain; Sore on toe Discharge [...]
--- OUTSIDE RECORDS SUMMARY | 2024-06-03 09:11 | XMS_ITS | Encounter Summary ---
Author Organization [facility] Address [address] [place] [address] Care Team Providers Care Line Haul Driver Name Role Phone Unavailable Primary Care Provider Unavailabl e Reason for Visit * Reason Onset Date Comments Results 12/05/2019 Encounter Details Date Type Department Care Team (Late st Contact Info) Description 12/05/2019 Telephone [facility] Adult Primary Care - [address] [id number] Tonja Alejandro PA-C [address] [place] [address] [place] [phone] Results Social History Tobacco Use Types [...] Encounter - Tonja Alejandro PA-C - 12/05/2019 1434 EDT I spoke with patient regarding MRI [...] the mild cellulitis. She will contact her LIVESTOCK BREEDER and inform this of them as she [...]
--- OUTSIDE RECORDS SUMMARY | 2024-06-03 09:11 | XMS_ITS | Encounter Summary ---
Author Organization [facility] Address [address] [place] [address] Care Team Providers Care Hydrographic Engineer Name Role Phone Unavailable Primary Care Provider Unavailabl e Reason for Visit * Reason Comments Diabetes * Consult (Routine) - Specialty Report Received Specialty Diagnoses / Procedures Referred By Kit t Referred To Contact Endocrinology Diagnoses Type 2 diabetes mellitus with other specified complication, unspecified whether penitentiary insulin use ([facility]) Tonja Alejandro PA-C [address] [place] [id number] Phone: tel: fax: [facility] Endocrinology - [address] [address] Phone: tel: fax: Referral ID Status Reason Start Date Expiration Date Visits Requested Visits Authorized [id number] Specialty Report Received Specialty Services Required 11/27/2019 1 1 Encounter Details Date Type Department Care Team (Latest Contact Info) Description 11/30/2019 9:30 EDT Telemedicine [facility] Endocrinology - [facility] [address] [place] [address] Sara Zafar NP [address] [facility] [address] [place] [address] Anxiety and depression (Primary Dx); Type 2 diabetes mellitus with hyperosmolarity without coma, with long-term current use of insulin ([facility]) Social History Tobacco Use Types Packs/Day [...] APRN - 11/30/2019 0930 EDT Subjective: [facility] diabetes Center F/U Note TELEMEDICINE [...] trimester miscarriages, most recently terminated a at [facility] The most recent 10/28/2019. Recurrent loss is attributed to to poorly controlled type 2 diabetes in conjunction with tobacco dependence. She saw [facility] on 11/03/2018, and was advised to get diabetes in control, and to quit smoking both tobacco and pot. She is now scheduled for a tubal ligation December 14. 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 She did go to [facility] and had x-rays and was told thatit [...] siblings, knows about 2, no DM. 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 Previous [...] current use of insulin ([facility]) documented in this encounter Discontinued Medications [...]
--- OUTSIDE RECORDS SUMMARY | 2024-06-03 09:11 | XMS_ITS | Encounter Summary ---
Author Organization [facility] Address [address] [place] [address] Care Team Providers Care Digital Advertising Specialist Name Role Phone Unavailable Primary Care Provider Unavailabl e Reason for Visit * Reason Comments Telemedicine Video Visit Sore left great toe Foot Swelling Encounter Details Date Type Department Care Team (Late st Contact Info) Description 03/06/2020 16:00 EDT Telemedicine [facility] Adult Primary Care - [address] [address] Moshe Ferrer MD [address] [facility] Level 1 [place] [phone] Cellulitis of great toe of left foot [...] with a trained counselor. Tobacco Counseling in [facility] offers free counseling services to residents who are ready to cut back or quit using tobacco. Services include: phone coaching (0-490-DYDY-NOW), online tools and support for those who would like to make changes on their own (www.[employer]), as well as in-person group workshops. Free nicotine replacement therapy is available through all of these resources. To learn more about your options visit www.[employer].org or call 8-760-GWIN-NOW ( ). To speak with an in-person tobacco counselor in [facility] call, [phone]. [place] Resident, please visit: [email or web address] I hope you quit smoking. I think [...] 27 mL 3 ??? lancets One Touch DelStio or other brand compatible with lancing device [...] and depression ??? Type 2 diabetes mellitus ([facility]) ??? Chronic left ear pain ??? Family [...] infection can be identified. Moshe Ferrer MD clay thrower The concept of ???Telemedicine?? has been described [...] or mental health care. Moshe Ferrer MD clay thrower documented in this encounter Plan of Treatment Not on file documented as of this encounter Visit Diagnoses Diagnosis Cellulitis of great toe of left foot- Primary Cellulitis and abscess of toe, unspecified documented in this encounter
--- OUTSIDE RECORDS SUMMARY | 2024-06-03 09:11 | XMS_ITS | Encounter Summary ---
Author Organization [facility] Address [address] [place] [address] Care Team Providers Care Service Advocate Contact Name Role Phone Unavailable Primary Care Provider Unavailabl e Encounter Details Date Type Department Care Team (Latest Contact Info) Description 01/01/2020 8:37 EDT - 01/01/2020 23:59 EDT [address] Encounter [address] [place], [place] [id number] Discharge Disposition: Home or Self Care Social [...] mL 3 12/04/2019 2 lancets One Touch DelMedypal or other brand compatible with lancing device [...]
--- OUTSIDE RECORDS SUMMARY | 2024-06-03 09:11 | XMS_ITS | Encounter Summary ---
Author Organization [facility] Address [address] [place] [address] Care Team Providers Care Dynamite Reclaimer Name Role Phone Unavailable Primary Care Provider Unavailabl e Encounter Details Date Type Department Care Team ([facility] Contact Info) Description 03/11/2020 Documentation Visit [facility] - [address] [place], [place] [id number] Marcel Bustamante Social History Tobacco Use Types [...] infusion service. Medication Order Review Admission Criteria: Cultural/quaker barriers to home infusion therapy: No Language other than Vietnamese: No Vision, speech, hearing, or cognitive impairment: [...] Home Health Agency Contact Info: DANAY Reardon ([phone] or [phone]) Laboratory Contacts: The [phone] Referral Source: Nurse/Aerial Sprayer Plan: Initial teach completed with Stella for [...] MARCEL BUSTAMANTE 03/11/2020 15:07 * Mily Ovalle [facility] - 03/11/2020 1505 EDT Patient: Cristy Luo [...] nurse assessment. Plan: Begin home infusion therapy. FAST FOOD SUPERVISOR nurse to see patient for administration of first home dose. Mixed and sent enough drug and supplies through 03/19/20. Delivery to [facility] for patient to apple picking supervisor at discharge. Anticipated end date 04/20/20. Follow up with patient via telephone within first week of therapy. Monitor labs per care plan weekly. MILY OVALLE RPH 03/17/2020 15:00 documented in this encounter Plan of Treatment Not on file documented as of this encounter Visit Diagnoses Not on filedocumented in this encounter
--- OUTSIDE RECORDS SUMMARY | 2024-06-03 09:11 | XMS_ITS | Encounter Summary ---
Author Organization [facility] Address [address] [place] [address] Care Team Providers Care Machine Applicator Cementer Name Role Phone Unavailable Primary Care Provider Unavailabl e Reason for Visit * Reason Comments Foot Ulcer pt has had foot ulce r for 2.5 mo on left great toe, sent here by primary Encounter Details Date Type Department Care Team (Late st Contact Info) Description 03/04/2020 14:31 EDT - 03/04/2020 16:[address] 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 * Diabetic Foot Ulcer (Slovenian) documented in this encounter Medications at Time [...] conditions at the [facility] on 03/04/2020 Scribe Attestation: This documentation is [...] Stable * Eryn Lunsford RN - 03/04/2020 2630 EDT Patient to ED with c/o worsening [...] 5 days 03/09/2020 15:[address] [facility] Blood VENOUS BLOOD / Unknown Blood Culture / Unknown 03/04/2020 15:20 EDT 03/04/2020 15:38 EDT Scott Harrington MD MICROBIOLOGY - GENERAL ORDER HAILEY Final Result Performing Organization Address City/[facility]/ZIP Co de Phone Number [facility] [address] [place] [address] * (ABNORMAL) GLUCOSE, SERUM (03/04/2020 15:03 EDT) Glucose 273(H) 70 - 100 mg/dL 03/04/2020 15:[address] [facility] Blood VENOUS BLOOD / Unknown Venipuncture / Unknown 03/04/2020 15:03 EDT 03/04/2020 15:11 EDT Scott Harrington MD CHEMISTRY & BLOOD GAS ORDERA BLES Final Result Performing Organization Address City/[facility]/ZIP Co de Phone Number [facility] [address] [place] [address] * (ABNORMAL) CREATININE (03/04/2020 15:03 EDT) Creatinine 0.41(L) 0.52 - 1.04 mg/dL 03/04/2020 15:[address] [facility] eGFR 135 >60 mL/min/1.7 3m2 03/04/2020 15:[address] [facility] Comment:eGFR calculated gil curtis CKD-EPI equation for non- Americans. Multiply eGFR by 1.16 for patients. Blood VENOUS BLOOD / Unknown Venipuncture / Unknown 03/04/2020 15:03 EDT 03/04/2020 15:11 EDT Scott Harrington MD CHEMISTRY & BLOOD GAS ORDERA BLES Final Result Performing Organization Address [facility] Co de Phone Number [facility] [address] [place] [address] * BUN (03/04/2020 15:03 EDT) BUN 13 10 - 26 mg/dL 03/04/2020 15:[address] [facility] Comment: Slight hemolysis identified, interpret with caution as results may be affected due to hemolysis. Blood VENOUS BLOOD / Unknown Venipuncture / Unknown 03/04/2020 15:03 EDT 03/04/2020 15:11 EDT Scott Harrington MD CHEMISTRY & BLOOD GAS ORDERA BLES Final Result Performing Organization Address [facility] Co de Phone Number [facility] [address] [place] [address] * ELECTROLYTES (03/04/2020 15:03 EDT) Sodium 140 136 - 145 mEq/L 03/04/2020 15:[address] [facility] Potassium 4.3 3.5 - 5.0 mEq/L 03/04/2020 15:[address] [facility] Comment: Slight hemolysis identified, interpret with caution as hemolysis will elevate potassium result. NOTE: Interpret with caution. Prolonged sample storage may alter the result. Chloride 99 96 - 110 mEq/L 03/04/2020 15:[address] [facility] CO2 Total 30 22 - 32 mEq/L 03/04/2020 15:[address] [facility] Comment: NOTE: Interpret with caution. Prolonged sample storage may alter the result. Blood VENOUS BLOOD / Unknown Venipuncture / Unknown 03/04/2020 15:03 EDT 03/04/2020 15:11 EDT Scott Harrington MD CHEMISTRY & BLOOD GAS ORDERA BLES Final Result Performing Organization Address City/[facility]/ZIP Co de Phone Number [facility] [address] [place] [address] * (ABNORMAL) SED. RATE:WESTERGREN (03/04/2020 15:03 EDT) Pathologist [facility] Sed Rate 54(H) 0 - 20 mm/hr 03/04/2020 16:[address] [facility] Blood VENOUS BLOOD / Unknown Venipuncture / Unknown 03/04/2020 15:03 EDT 03/04/2020 15:11 EDT Scott Harrington MD HEMATOLOGY & PF4 ORDERABLES Final Result Performing Organization Address [facility] Co de Phone Number [facility] [address] [place] [address] * (ABNORMAL) C REACTIVE PROTEIN (03/04/2020 15:03 EDT) Pathologist [facility] C-Reactive Protein 33.5(H) <10.0 mg/L 03/04/2020 15:[address] [facility] Blood VENOUS BLOOD / Unknown Venipuncture / Unknown 03/04/2020 15:03 EDT 03/04/2020 15:11 EDT Scott Harrington MD CHEMISTRY & BLOOD GAS ORDERA BLES Final Result Performing Organization Address City/[facility]/ZIP Co de Phone Number [facility] [address] [place] [address] * (ABNORMAL) COMPLETE BLOOD COUNT (03/04/2020 15:03 EDT) WBC 14.64(H) 4.00 - 12.40 K/cmm 03/04/2020 15:[address] [facility] RBC 4.58 3.86 - 5.04 M/cmm 03/04/2020 15:[address] [facility] Hemoglobin 14.1 11.6 - 15.2 gm/dL 03/04/2020 15:[address] [facility] HCT 40.0 34.9 - 44.4 % 03/04/2020 15:[address] [facility] MCV 87 81 - 98 fl 03/04/2020 15:[address] [facility] MCH 30.8 26.7 - 33.3 pg 03/04/2020 15:30 [facility] MCHC 35.3 32.1 - 35.9 gm/dL 03/04/2020 15:[address] [facility] RDW-CV 12.3 <14.7 % 03/04/2020 15:[address] [facility] RDW-SD 39.5 <50.4 fl 03/04/2020 15:[address] [facility] PLT 414(H) 141 - 377 K/cmm 03/04/2020 15:30 [facility] MPV 9.8 9.5 - 12.7 fl 03/04/2020 15:[address] [facility] Blood VENOUS BLOOD / Unknown Venipuncture / Unknown 03/04/2020 15:03 EDT 03/04/2020 15:11 EDT us Scott Harrington MD HEMATOLOGY & PF4 ORDERABLES Final Result [facility] [address] [place] [address] * HOLD SST (03/04/2020 15:03 EDT) Hold Hold 03/04/2020 16:[address] [facility] Blood VENOUS BLOOD / Unknown Venipuncture / Unknown 03/04/2020 15:03 EDT 03/04/2020 15:11 EDT Mayank Cruz MD LAB INFO SERVICE AND SUPPORT & PHONE RESULT Final Result [facility] [address] [place] [address] * HOLD LAVENDER TOP (03/04/2020 15:03 EDT) Hold Hold 03/04/2020 16:[address] [facility] Blood VENOUS BLOOD / Unknown Venipuncture / Unknown 03/04/2020 15:03 EDT 03/04/2020 15:11 EDT Mayank Cruz MD LAB INFO SERVICE AND SUPPORT & PHONE RESULT Final Result Performing Organization Address City/[facility]/ZIP Co de Phone Number [facility] [address] [place] [address] * HOLD GREEN TOP (03/04/2020 15:03 EDT) Hold Hold 03/04/2020 16:[address] [facility] Blood VENOUS BLOOD / Unknown Venipuncture / Unknown 03/04/2020 15:03 EDT 03/04/2020 15:11 EDT Mayank Cruz MD LAB INFO SERVICE AND SUPPORT & PHONE RESULT Final Result Performing Organization Address City/[facility]/ZIP Co de Phone Number [facility] [address] [place] [address] * HOLD BLUE TOP (03/04/2020 15:03 EDT) Hold Hold 03/04/2020 16:[address] [facility] Blood VENOUS BLOOD / Unknown Venipuncture / Unknown 03/04/2020 15:03 EDT 03/04/2020 15:11 EDT Mayank Cruz MD LAB INFO SERVICE AND SUPPORT & PHONE RESULT Final Result 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
--- OUTSIDE RECORDS SUMMARY | 2024-06-03 09:11 | XMS_ITS | Encounter Summary ---
Author Organization [facility] Address [address] [place] [address] Care Team Providers Care Energy Derivatives Trader Name Role Phone Unavailable Primary Care Provider Unavailabl e Reason for Visit * Reason Onset Date Comments Ankle Pain 12/04/2019 Encounter Details Date Type Department Care Team (Late st Contact Info) Description 12/04/2019 Telephone [facility] Adult Primary Care - [address] [address] Tonja Alejandro PA-C [employer] [employer] [place] [facility] [address] [place] [phone] Ankle Pain Social History Tobacco Use [...] Encounter - Tonja Alejandro PA-C - 12/04/2019 8065 EDT Spoke with patient on the phone. [...]
--- OUTSIDE RECORDS SUMMARY | 2024-06-03 09:11 | XMS_ITS | Encounter Summary ---
Author Organization [facility] Address [address] [place] [address] Care Team Providers Care Medical Office Technologist Name Role Phone Unavailable Primary Care Provider Unavailabl e Reason for Referral * Consult (Routine) - Specialty Report Received Specialty Diagnoses / Procedures Referred By Kit t Referred To Contact Endocrinology Diagnoses Type 2 diabetes mellitus with other specified complication, unspecified whether oysterman insulin use ([facility]) Teodoro Alejandro PA-C [address] [place] [address] Phone: tel: fax: [facility] Endocrinology - [address] [address] Phone: tel: fax: Referral ID Status Reason Start Date Expiration Date Visits Requested Visits Authorized [id number] Specialty Report Received Specialty Services Required 11/27/2019 [...] Contact Info) Description 11/26/2019 15:30 EDT Telemedicine [facility] Adult Primary Care [facility] [address] [place] [address] Teodoro Alejandro PA-C [address] [place] [address] [place] [phone] Type 2 diabetes mellitus with other specified complication, unspecified whether oysterman insulin use ([facility]) (Primary Dx); Left foot pain; Anxiety and [...] Lantus 25 units in the morning and [id number] mg once a day. Her fasting sugars [...] in October 2019. She follows up with [facility] the [facility]. She is scheduled for a tubal procedure on December 13. 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 [...] mellitus with other specified complication, unspecified whether alf insulin use ([facility]) Patient has type 2 diabetes that [...] mellitus with other specified complication, unspecified whether alf insulin use ([facility]) Ordered: 11/27/2019 documented as of this encounter Results * (ABNORMAL) C REACTIVE PROTEIN (11/28/2019 15:56 EDT) C-Reactive Protein 10.6(H) <10.0 mg/L 11/28/2019 17:12 EDT [facility] Blood VENOUS BLOOD / Unknown Venipuncture / Unknown 11/28/2019 15:56 EDT 11/28/2019 15:56 EDT us Teodoro Alejandro PA-C CHEMISTRY & BLOOD GA S ORDERABLES Final Result [facility] [address] [place] [address] * (ABNORMAL) COMPREHENSIVE METABOLIC PANEL (CMP) (11/28/2019 15:56 EDT) Sodium 134(L) 136 - 145 mEq/L 11/28/2019 17:12 EDT [facility] Potassium 4.2 3.5 - 5.0 mEq/L 11/28/2019 17:12 EDT [facility] Chloride 100 96 - 110 mEq/L 11/28/2019 17:12 EDT [facility] CO2 Total 28 22 - 32 mEq/L 11/28/2019 17:12 EDT [facility] Glucose 301(H) 70 - 100 mg/dL 11/28/2019 17:12 EDT [facility] BUN 14 10 - 26 mg/dL 11/28/2019 17:12 [facility] Creatinine 0.57 0.52 - 1.04 mg/dL 11/28/2019 17:12 [facility] eGFR 121 >60 mL/min/1.7 3m2 11/28/2019 17:12 [facility] Comment:eGFR calculated gil curtis CKD-EPI equation for non- Americans. Multiply eGFR by 1.16 for patients. Total Protein 7.0 6.3 - 8.2 g/dL 11/28/2019 17:12 [facility] Albumin 3.9 3.4 - 4.9 g/dL 11/28/2019 17:12 [facility] Alkaline Phosphatase 100 38 - 126 U/L 11/28/2019 17:12 [facility] AST 17 15 - 46 U/L 11/28/2019 17:12 [facility] ALT 14 <35 U/L 11/28/2019 17:12 [facility] Bilirubin, Total <0.5 <1.4 mg/dL 11/28/19 20 17:12 [facility] Calcium 9.8 8.5 - 10.5 mg/dL 11/28/2019 17:12 [facility] Calculated Calcium 9.9 8.5 - 10.5 mg/dL 11/28/2019 17:12 [facility] Blood VENOUS BLOOD / Unknown Venipuncture / Unknown 11/28/2019 15:56 EDT 11/28/2019 15:56 EDT us Teodoro Alejandro PA-C CHEMISTRY & BLOOD GA S ORDERABLES Final Result [facility] [address] [place] [address] * (ABNORMAL) COMPLETE BLOOD COUNT AND DIFFERENTIAL (11/28/2019 15:56 EDT) WBC 14.38(H) 4.00 - 12.40 K/cmm 11/28/2019 17:04 [facility] RBC 4.69 3.86 - 5.04 M/cmm 11/28/2019 17:04 [facility] Hemoglobin 14.3 11.6 - 15.2 gm/dL 11/28/2019 17:04 [facility] HCT 40.8 34.9 - 44.4 % 11/28/2019 17:04 [facility] MCV 87 81 - 98 fl 11/28/2019 17:04 [facility] MCH 30.5 26.7 - 33.3 pg 11/28/2019 17:04 [facility] MCHC 35.0 32.1 - 35.9 gm/dL 11/28/2019 17:04 [facility] RDW-CV 12.0 <14.7 % 11/28/2019 17:04 [facility] RDW-SD 38.4 <50.4 fl 11/28/2019 17:04 [facility] PLT 414(H) 141 - 377 K/cmm 11/28/2019 17:04 [facility] MPV 10.1 9.5 - 12.7 fl 11/28/2019 17:04 [facility] Type of Differential: Manual 11/28/2019 17:04 [facility] Blood VENOUS BLOOD / Unknown Venipuncture / Unknown 11/28/2019 15:56 EDT 11/28/2019 15:56 EDT Teodoro Alejandro PA-C PACKAGES & DNA PROBE ORDERABLES Final Result [facility] [address] [place] [address] * (ABNORMAL) HEMOGLOBIN A1C (11/28/2019 15:56 EDT) Hemoglobin A1c 10.3(H) <5.7 % 11/29/2019 9:15 [facility] Comment: Glycemic Status [...] Glucose 249 mg/dL 0 9:15 EDT [facility] Comment: The eAG represents the A1c result expressed as average glucose in mg/dL. Blood VENOUS BLOOD / Unknown Venipuncture / Unknown 11/28/2019 15:56 EDT 11/28/2019 15:56 EDT Teodoro Alejandro PA-C CHEMISTRY & BLOOD GA S ORDERABLES Final Result Performing Organization Address [facility] Co de Phone Number [facility] [address] [place] [address] * THYROID CASCADE (11/28/2019 15:56 EDT) TSH 0.64 0.47 - 4.68 uIU/mL 11/28/2019 17:44 EDT [facility] Blood VENOUS BLOOD / Unknown Venipuncture / Unknown 11/28/2019 15:56 EDT 11/28/2019 15:56 EDT Narrative [facility] - 11/28/2019 17:44 EDT NOTE: TSH Avella is not recommended for patients in which pituitary or hypothalamic disorders are suspected. The results of this assay can be falsely lowered due to the consumption of Biotin. Teodoro Alejandro PA-C CHEMISTRY & BLOOD GA S ORDERABLES Final Result Performing Organization Address [facility] Co de Phone Number [facility] [address] [place] [address] * LIPID PROFILE (INCLUDES CHOLESTEROL, TRIGLYCERIDES, HDL, LDL) (11/28/2019 15:56 EDT) [facility] Signature Cholesterol 179 See Note mg/dL 11/28/2019 17:12 [facility] Comment: Acceptable: ?<200 mg/dL Borderline High: 200-239 mg/dL High: ?> or = 240 mg/dL HDL 38 See Note mg/dL 11/28/2019 17:12 [facility] Comment: Low: ? <40 mg/dL Normal: ??40-60 mg/dL High: ?>60 mg/dL LDL, Calculated 61 See Note mg/dL 11/28/2019 17:12 [facility] Comment: Optimal: ? <100 mg/dL Near Optimal: ?100-129 mg/dL Borderline High: 130-159 mg/dL High: ?160-189 mg/dL Very High: ? > or = 190 mg/dL Triglyceride 398 See Note mg/dL 11/28/2019 17:12 [facility] Comment: Normal: ? <150 mg/dL Borderline High: ??150 - 199 mg/dL High: ? 200 - 499 mg/dL Very High: ?> or = 500 mg/dL Chol/HDL Ratio 4.7 See Note 11/28/2019 17:12 [facility] Comment: No reference range has been established for CHOL/HDL ratio. Non HDL Cholesterol 141 See Note mg/dL 11/28/2019 17:12 [facility] Comment: Desirable: ?<130 mg/dL Borderline High: ??130-159 mg/dL High: ? 160-189 mg/dL Very High: ?> or = 190 mg/dL Blood VENOUS BLOOD / Unknown Venipuncture / Unknown 11/28/2019 15:56 EDT 11/28/2019 15:56 EDT Teodoro Alejandro PA-C CHEMISTRY & BLOOD GA S ORDERABLES Final Result [facility] [address] [place] [address] * (ABNORMAL) ALBUMIN, URINE (11/28/2019 15:56 EDT) [...] S ORDERABLES Final Result Performing Organization Address [facility] Co de Phone Number [facility] [address] [place] [address] documented in this encounter Visit Diagnoses Diagnosis Type 2 diabetes mellitus with other specified complication, unspecified whether oysterman insulin use ([facility])- Primary Left foot pain Pain in [...]
--- OUTSIDE RECORDS SUMMARY | 2024-06-03 09:11 | XMS_ITS | Encounter Summary ---
Author Organization [facility] Address [address] [place] [address] Care Team Providers Care Rehabilitation Coordinator Name Role Phone Unavailable Primary Care Provider Unavailabl e Reason for Visit * Reason Comments Telemedicine Video Visit Foot Pain Ankle Pain Encounter Details Date Type Department Care Team (Latest Contact Info) Description 12/28/2019 10:45 EDT Telemedicine [facility] Adult Primary Care - [address] [phone] Teodoro Alejandro PA-C [address] [facility] [address] [place] [phone] Encounter for sterilization (Primary Dx); Type 2 diabetes mellitus with hyperosmolarity without coma, with long-term current use of insulin ([facility]); Left foot pain Social History Tobacco [...] and ankle. OBGYN: Patient followed up with CHEMICAL OPERATIONS SPECIALIST on 11/02/2019 and a discussion was placed [...] 27 mL 3 ??? lancets One Touch DelQoniac or other brand compatible with lancing device [...] Encounter for sterilization Patient will follow-up with CHEMICAL OPERATIONS SPECIALIST regarding sterilization. Also discussed with patient about possiblevasectomy for her partner. Type 2 diabetes mellitus with hyperosmolarity without coma, with long-term current use of insulin ([facility]) Continue Lantus 30 mg daily. Continue aspart [...] coma, with long-term current use of insulin ([facility]) Left foot pain Pain in limb documented in this encounter
--- OUTSIDE RECORDS SUMMARY | 2024-06-03 09:11 | XMS_ITS | Encounter Summary ---
Author Organization [facility] Address [address] [place] [address] Care Team Providers Care Jewelry Making Instructor Name Role Phone Unavailable Primary Care Provider Unavailabl e Reason for Visit * Reason Onset Date Comments Wound Infection 03/04/2020 Toe Pain 03/04/2020 Encounter Details Date Type Department Care Team (Late st Contact Info) Description 03/04/2020 Telephone [facility] Adult Primary Care [address] [address] Tonja Alejandro PA-C [address] [place] [address] [place] [phone] Wound Infection; Toe Pain Social History [...]
--- OUTSIDE RECORDS SUMMARY | 2024-06-03 09:11 | XMS_ITS | Encounter Summary ---
Author Organization [facility] Address [address] [place] [address] Care Team Providers Care Marketer Name Role Phone Unavailable Primary Care Provider [...]
--- OUTSIDE RECORDS SUMMARY | 2024-06-03 09:11 | XMS_ITS | Encounter Summary ---
Author Organization [facility] Address [address] [place] [address] Care Team Providers Care Supervisor Wet Room Name Role Phone Unavailable Primary Care Provider Unavailabl e Reason for Visit * Reason Onset Date Comments Update 12/06/2019 Encounter Details Date Type Department Care Team (Late st Contact Info) Description 12/06/2019 Telephone [facility] OBGYN Services - [address] [phone] Charu Flynn MD [address] [facility], [address] [place] [address] Update Social History Tobacco Use [...]
--- OUTSIDE RECORDS SUMMARY | 2024-06-03 09:11 | XMS_ITS | Encounter Summary ---
Author Organization [facility] Address [address] [place] [address] Care Team Providers Care Double Head Machine Operator Name Role Phone Unavailable Primary Care Provider Unavailabl e Reason for Visit * Reason Onset Date Comments Follow-up 03/05/2020 Encounter Details Date Type Department Care Team (Late st Contact Info) Description 03/05/2020 Telephone [facility] Adult Primary Care - [address] [id number] Tonja Alejandro PA-C [employer] [facility] [address] [place] [phone] Follow-up Social History Tobacco Use Types [...]
--- OUTSIDE RECORDS SUMMARY | 2024-06-03 09:11 | XMS_ITS | Encounter Summary ---
Author Organization [facility] Address [address] [place] [address] Care Team Providers Care University Dean Name Role Phone Unavailable Primary Care Provider Unavailabl e Reason for Visit * Reason Onset Date Comments Results 11/30/2019 Encounter Details Date Type Department Care Team (Late st Contact Info) Description 11/30/2019 Telephone [facility] Adult Primary Care - [address] [phone] Tonja Alejandro PA-C [address] [place] [address] [place] [phone] Results Social History Tobacco Use Types [...]
--- OUTSIDE RECORDS SUMMARY | 2024-06-03 09:11 | XMS_ITS | Encounter Summary ---
Author Organization [facility] Address [address] [place] [address] Care Team Providers Care Dance Hall Hostess Name Role Phone Unavailable Primary Care Provider Unavailabl e Encounter Details Date Type Department Care Team (Latest Contact Info) Description 01/01/2020 8:37 EDT - 01/01/2020 23:59 EDT [address] Encounter [address] [place], [place] [id number] Discharge Disposition: Home or Self Care Social [...] mL 3 12/04/2019 2 lancets One Touch Delgis.to or other brand compatible with lancing device [...] Ulcerated, foot, left, with fat layer exposed ([facility]) Type 2 diabetes mellitus with diabetic polyneuropathy, with long-term current use of insulin ([facility]) documented in this encounter Results [...]
--- OUTSIDE RECORDS SUMMARY | 2024-06-03 09:11 | XMS_ITS | Encounter Summary ---
Author Organization [facility] Address [address] [place] [address] Care Team Providers Care Tooth Inspector Name Role Phone Unavailable Primary Care Provider Unavailabl e Reason for Referral * Radiology Services (Routine) - Closed Specialty Diagnoses / Procedures Referred By Contac t Referred To Contact Radiology Diagnoses Left foot pain Sore on toe ([facility]) Procedures MR FOOT W WO CONTRAST LEFT Tonja Alejandro PA-C Phone: tel: fax: Referral ID Status Reason Start Date Expiration Date Visits Re quested Visits Authorized [id number] Closed 11/28/2019 1 1 Reason for Visit * Reason Comments Foot Pain left Encounter Details Date Type Department Care Team (Late st Contact Info) Description 11/28/2019 14:30 EDT Office Visit [facility] Adult Primary Care - [place] [address] [place] [address] Tonja Alejandro PA-C [address] [place] [address] [place] [phone] Left foot pain (Primary Dx); Type 2 diabetes mellitus with other specified complication, unspecified whether detention insulin use ([facility]); Sore on toe Social History [...] from the original note were not included. [facility] Primary Care Acute Visit Service Date: [...] she did go to urgent care at [facility] and had x-rays done and was [...] specified complication, unspecified whether detention insulin use ([facility]) Sore on toe/left foot pain This is [...] and reviewed above. Case discussed with Dr. Flwoer. documented in this encounter Plan of Treatment [...] complication, unspecified whether termite helper insulin use ([facility]) Sore on toe ([facility]) Left foot pain Pain in limb Sore on toe ([facility]) documented in this encounter
--- OUTSIDE RECORDS SUMMARY | 2024-06-03 09:11 | XMS_ITS | Encounter Summary ---
Author Organization [facility] Address [address] [place] [address] Care Team Providers Care Powerhouse Helper Name Role Phone Unavailable Primary Care Provider Unavailabl e Encounter Details Date Type Department Care Team (Latest Contact Info) Description 12/05/2019 10:30 EDT - 12/05/2019 23:59 EDT Hospital Encounter [facility] Pre-Surgical Testing [address] [place], [place] [phone] Discharge Disposition: Home or Self Care Social [...] instruct them to call us back at [phone] to report symptoms (If patient is in [...] - Visitors must have mask for pickup. LEAD SYSTEMS ANALYST will provide mixing picker tender instructions when Pt is ready for DC. [...]
--- OUTSIDE RECORDS SUMMARY | 2024-06-03 09:11 | XMS_ITS | Encounter Summary ---
Author Organization [facility] Address [address] [place] [address] Care Team Providers Care Band Director Name Role Phone Unavailable Primary Care [...]
--- OUTSIDE RECORDS SUMMARY | 2024-06-03 09:11 | XMS_ITS | Encounter Summary ---
Author Organization [facility] Address [address] [place] [address] Care Team Providers Care Process Control Tech Name Role Phone Unavailable Primary Care Provider Unavailabl e Reason for Referral * Laboratory Services (Routine/Next Available) - New Request Specialty Diagnoses / Procedures Referred By Contac t Referred To Contact Diagnoses Diabetic foot ulcer ([facility]) Procedures C REACTIVE PROTEIN Mushtaq Light DO Phone: tel: fax: Referral ID Status Reason Start Date Expiration Date V isits Requested Visits Authorized [id number] New Request 03/12/2020 1 1 * Laboratory Services (Routine/Next Available) - New Request Specialty Diagnoses / Procedures Referred By Contac t Referred To Contact Diagnoses Diabetic foot ulcer ([facility]) Procedures SED. RATE:Mushtaq Peoples DO Phone: tel: fax: Referral ID Status Reason Start Date Expiration Date V isits Requested Visits Authorized [id number] New Request 03/12/2020 1 1 * Laboratory Services (Routine/Next Available) - New Request Specialty Diagnoses / Procedures Referred By Contac t Referred To Contact Diagnoses Diabetic foot ulcer ([facility]) Procedures CREATININE Mushtaq Light DO Phone: tel: fax: Referral ID Status Reason Start Date Expiration Date V isits Requested Visits Authorized [id number] New Request 03/12/2020 1 1 * Laboratory Services (Routine/Next Available) - New Request Specialty Diagnoses / Procedures Referred By Contac t Referred To Contact Diagnoses Diabetic foot ulcer ([facility]) Procedures COMPLETE BLOOD COUNT AND DIFFERENTIAL Mushtaq Light DO Phone: tel: fax: Referral ID Status Reason Start Date Expiration Date V isits Requested Visits Authorized [id number] New Request 03/12/2020 1 1 * Follow Up (Routine/Next Available) - Receiving Office to Obtain Authorization Specialty Diagnoses / Procedures Referred By Contac t Referred To Contact Podiatry Diagnoses Diabetic foot ulcer ([facility]) Carrington Mari MD [address] [place] [address] Phone: tel: fax: [facility] [address] [place] [address] Phone: tel: fax: Referral ID Status Reason Start Date Expiration Date Visits Requested Visits Authorized [id number] Receiving Office to Obtain Authorization Specialty Services [...] Referred To Contact Diagnoses Diabetic foot ulcer ([facility]) Diabetic foot infection ([facility]) Diabetic foot ulcer associated with diabetes mellitus due to underlying condition, unspecified laterality, unspecified part of foot, unspecified ulcer stage (HCC-CMS) Referral ID Status Reason Start Date Expiration Date Visits Re quested Visits Authorized [id number] 1 1 Encounter Details Date Type Department Care Team (Late st Contact Info) Description 03/06/2020 18:11 EDT - 03/12/2020 12:07 EDT Hospital Encounter [facility] 6 General Medicine Telemetry Unit [address] [place] [address] [id number] Siobhan Hare PA-C [address] [place] [address] [phone] Elise Charles MD [address] [place] [address] [phone] Carrington Padilla MD [address] [place] [address] [phone] Cal Jenkins MBBS [address] [place] [phone] Nate Henderson MD [address] [place] [phone] Diabetic foot ulcer (HCC-CMS) (Primary Dx); Diabetic [...] great toe of left foot ([facility]) Additional Problems Managed in the Hospital Active Hospital Problems Diagnosis Date Noted ??? *Osteomyelitis of great toe of left foot ([facility]) 03/12/2020 ??? Diabetic foot ulcer ([facility]) 03/06/2020 Resolved Hospital Problems No resolved problems [...] Units Date/Time Anaerobe Culture/Smear (inc. aerobes), Other [[id number]] (Abnormal) (Susceptibility) Collected: 03/07/20 1421 Lab Status: Preliminary result Specimen: Bone from Toe Updated: 03/10/20 1751 Organism ID Few Staphylococcus aureus Few Streptococcus agalactiae Few Streptococcus anginosus Moderate Prevotella bivia Smear Few Neutrophils Present Few Gram Positive Cocci Upcoming Appointments 2020 9:30 Office Visit with Elza Navarro DPM [facility] [place] (--) [address] [place] [phone] 2020 13:00 Televideo Short with Tonja Plascencia APRN [facility] (--) [address] [facility] [address] Mar 27, 2020 13:30 Televideo Short with Tonja Plascencia APRN [facility] (--) [address] [facility] [address] Apr 03, 2020 13:30 Televideo Short with Tojna Plascencia APRN [facility] (--) [address] [facility] [address] Apr 10, 2020 13:30 Televideo Short with Tonja Plascencia APRN [facility] (--) [address] [facility] [address] Apr 16, 2020 9:30 Televideo Short with Mushtaq Light DO [facility] (--) [address] [facility] [address] Discharge Handoff Communication Following information conveyed to [...] discuss the patient's care with the physician economic research assistant. Nate Henderson MD 03/24/2020 12:46 * [...] questions. * Nate Henderson MD - 03/10/2020 8907 EDT Medicine Progress Note Admit Date: 03/06/2020 [...] discuss the patient's care with the physician economic research assistant. Nate Henderson MD 03/24/2020 12:48 * Ranulfo Valverde RN - 03/10/2020 1549 EDT Patient for home on IV antibiotic for a long course. Had discussed this with the pt and her spouse as a possibility last week. As of this time the pt isstill in agreement with home IV medication. She has chosen the [facility] and I have called to the Liaison for the [facility] to give a heads up as they will come into the home for reinforcement of teaching of self administration and will also change the dressing on the PICC line as per their agency protocol. Call to the [facility] and they have confirmed that the pt has 100% coverage from Medicaid. No prior auth needed. Awaiting PICC placement and initial infusion of medication and teaching from [facility] once the [...] Results: Anaerobe Culture/Smear (inc. aerobes), Other (Order [id number]) Abnormal Status: Preliminary result (Collected: 03/07/2020 14:21) [...] answer calls. Please direct calls to orthopaedics pets salesperson resident for further questions. Cosigned by Eryn [...] Assessment REASON FOR ADMISSION: Diabetic foot ulcer ([facility]) Patient understands reason for admission: Yes PATIENT [...] FOR FINANCES: TRANSPORTATION: Transportation: Family, Self CULTURAL, MUSLIM and/or LANGUAGE factors affecting health care/discharge planning: [...] Home Health Services: None DME Provider: Pharmacy: [id number] - [facility] [address] [facility] [address] [facility] [address] Home Health: Other: POST HOSPITAL TRANSITION PLAN: Have met with the pt and her this day. She just had a debridement and BX. Awaiting results. Pt and her are both working and raising children. 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 Will await results of the BX and the determination regarding need for medication and specifics related to type, and duration and recommendations for mode of delivery. Case Management will follow for transition. This pt has Medicaid and is capable to having home IV medication if needed. Specifics for finances would need to be confirmed from [facility] most likely if IV is indicated. RANULFO VALVERDE RN CCM 0430 03/07/2020 16:13 * Vicki Phan RN - 03/07/2020 1287 EDT Diabetes Nurse clinician met with Stella [...] a planning healthy meals folder. Vicki CLARKE backpackers manager Nurse Clinician #[id number] * Valencia Antunez - 03/07/2020 3988 EDT Medicine Progress Note Service Date: 03/07/2020 [...] Notes * Carrington Padilla MD - 03/06/2020 7926 EDT Images from the original note were [...] Central Catheter Insertion First Catheter This Session [employer] rep: Patient Location: M606/M606-02 Preliminary Data: Insertion Date: 03/11/20 Insertion Time: 1353 First Air Compressor Engineer: Nory Ware RN RN/SANDOR Documenting Procedure: Jessika [...] Line Operators: Number Of Operators: 1 First Air Compressor Engineer's Name: Nory Ware RN First Air Compressor Engineer's Title: Vascular crystal finisher Unless otherwise noted, there were no complications, [...] worsening pain and [facility] [...] history of repeated infections. Active job as computer teacher. Review of Systems: Remainder of a ten point review of systems was performed and negative. Past Medical History: has a past medical history of Anxiety, Arthritis, Diabetes ([facility]), Historyof general anesthesia, Nausea & vomiting, [...] History: . Lives with her and children. 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 Vital Signs: BP 109/66 (BP Cuff [...] lost to follow-up. 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 She is a current smoker and endorses occasional alcohol and marijuana use. Ambulatory status: ambulates without assistive devices Last meal: 12:30 03/07/20 Past Medical History: Diagnosis Date ??? Anxiety ??? Arthritis 12/05/19- Spine- told years ago ??? Diabetes ([facility]) A1c 10.3 on 11/28/2019 ??? History of [...] the day as she works as a computer teacher Review of Systems: A 10-point review [...] tolerated the procedure well Assessment: Cristy Luo [id number] Cristy Luo is a 34 y.o. [...] T2DM with neuropathy who presents to the [facility] PCP's reccomendation, with increased swelling and [...] further care. Final diagnoses: Diabetic foot ulcer ([facility]) This documentation is recorded by Celestina Francis [...] as increased swelling. She does have a coil winding supervisor, last saw them in late December. She [...] physician: Araceli Final diagnoses: Diabetic foot ulcer ([facility]) DISPOSITION: Admitted The patient's pain was managed [...] the Emergency Department: Good PCP: Tonja Alejandro [facility] 03/07/2020 12:09 No flowsheet data found. [...] Plan Goals Description: D: Patient admitted to [facility] @ 2300. Patient's chief complaint is [...] Care - Carrington Mari MD - 03/07/2020 5494 EDT Consulted by medicine to evaluate the patient for diabetic foot wound. The patient was not in her room. According to nursing the patient and her went outside to get fresh air. Orthopedics will evaluate the patient at a later time Carrington Mari * Plan of Care - Marisa Barahona RN - 03/07/2020 0305 EDT D: Patient admitted to [facility] @ 2300. Patient's chief complaint is [...] AND DIFFERENTIAL Lab Routine Diabetic foot ulcer ([facility]) Ordered: 03/12/2020 CREATININE Lab Routine Diabetic foot ulcer ([facility]) Ordered: 03/12/2020 SED. RATE:WESTERGREN Lab Routine Diabetic foot ulcer ([facility]) Ordered: 03/12/2020 C REACTIVE PROTEIN Lab Routine Diabetic foot ulcer ([facility]) Ordered: 03/12/2020 Scheduled Referrals Name Type Priority Associated Diagnoses Orde r Schedule AMB CONS/FOLLOW UP PODIATRY Outpatient Referral Routine Diabetic foot ulcer ([facility]) Ordered: 03/07/2020 documented as of this [...] 03/18/2020 10:5 1 EDT us Scan 2 Guest Relations Executive PROCEDURE/MINOR SURGICAL OR DERABLES Final Result * ORDERS - SCANNED (03/14/2020 7:54 EDT) 03/14/2020 7:54 EDT us Scan 2 Guest Relations Executive ADMISSION ORDERABLES Final Result * (ABNORMAL) POCT GLUCOSE, INTERFACED (03/12/2020 7:40 EDT) Glucose, POC 144(H) 70 - 100 mg/dL 03/12/2020 7:[address] [facility] installer soft top ID [id number] 03/12/2020 7:[address] [facility] HN LAB POC COMMENT (GLUCOSE) Test Performed by Nursing Services 03/12/2020 7:[address] [facility] Blood CAPILLARY BLOOD / Unknown 03/12/2020 7:40 EDT 03/12/2020 7:41 EDT us Catherine Booth MD POINT OF CARE TEST ORDERAB LES Final Result [facility] [address] [place] [address] * (ABNORMAL) POCT GLUCOSE, INTERFACED (03/11/2020 21:39 EDT) Glucose, POC 210(H) 70 - 100 mg/dL 03/11/2020 21:[address] [facility] installer soft top ID [id number] 03/11/2020 21:[address] [facility] HN LAB POC COMMENT (GLUCOSE) Test Performed by Nursing Services 03/11/2020 21:[address] [facility] Blood CAPILLARY BLOOD / Unknown 03/11/2020 21:39 EDT 03/11/2020 21:42 EDT us Catherine Booth MD POINT OF CARE TEST ORDERAB LES Final Result Performing Organization Address City/[facility]/ZIP Co de Phone Number [facility] [address] [place] [address] * (ABNORMAL) POCT GLUCOSE, INTERFACED (03/11/2020 17:49 EDT) Glucose, POC 151(H) 70 - 100 mg/dL 03/11/2020 17:[address] [facility] installer soft top ID [id number] 03/11/2020 17:[address] [facility] HN LAB POC COMMENT (GLUCOSE) Test Performed by Nursing Services 03/11/2020 17:[address] [facility] Blood CAPILLARY BLOOD / Unknown 03/11/2020 17:49 EDT 03/11/2020 17:53 EDT us Catherine Booth MD POINT OF CARE TEST ORDERAB LES Final Result [facility] [address] [place] [address] * INSERT PICC LINE (03/11/2020 14:00 EDT) Narrative Nory Ware RN - 03/11/2020 14:00 EDT Nory Ware RN ? 03/11/2020 14:03 Central Catheter Insertion First Catheter This Session ?[employer] rep: Patient Location: M606/M606-02 Preliminary Data: Insertion Date: 03/11/20 Insertion Time: 1353 First Air Compressor Engineer: Nory Ware RN RN/SANDOR Documenting Procedure: Jessika [...] Line Operators: Number Of Operators: 1 First Air Compressor Engineer's Name: Nory Ware RN First Air Compressor Engineer's Title: Vascular crystal finisher Unless otherwise noted, there were no complications, no blood loss and no cultures obtained. NORY WARE RN ?? 03/11/2020 ?? 14:01 Jarrett Gutierrez PA-C IV THERAPY ORDERABLES Final Result * (ABNORMAL) POCT GLUCOSE, INTERFACED (03/11/2020 11:57 EDT) Glucose, POC 185(H) 70 - 100 mg/dL 03/11/2020 12:[address] [facility] installer soft top ID [id number] 03/11/2020 12:[address] [facility] HN LAB POC COMMENT (GLUCOSE) Test Performed by Nursing Services 03/11/2020 12:[address] [facility] Blood CAPILLARY BLOOD / Unknown 03/11/2020 11:57 EDT 03/11/2020 12:16 EDT us Catherine Booth MD POINT OF CARE TEST ORDERAB LES Final Result Performing Organization Address City/[facility]/ZIP Co de Phone Number [facility] [address] [place] [address] * (ABNORMAL) POCT GLUCOSE, INTERFACED (03/11/2020 8:06 EDT) Glucose, POC 110(H) 70 - 100 mg/dL 03/11/2020 14:[address] [facility] installer soft top ID [id number] 03/11/2020 14:[address] [facility] HN LAB POC COMMENT (GLUCOSE) Test Performed by Nursing Services 03/11/2020 14:[address] [facility] Blood CAPILLARY BLOOD / Unknown 03/11/2020 8:06 EDT 03/11/2020 14:30 EDT us Catherine Booth MD POINT OF CARE TEST ORDERAB LES Final Result [facility] [address] [place] [address] * (ABNORMAL) POCT GLUCOSE, INTERFACED (03/10/2020 21:23 EDT) Glucose, POC 185(H) 70 - 100 mg/dL 03/10/2020 21:[address] [facility] installer soft top ID [id number] 03/10/2020 21:[address] [facility] HN LAB POC COMMENT (GLUCOSE) Test Performed by Nursing Services 03/10/2020 21:[address] [facility] Blood CAPILLARY BLOOD / Unknown 03/10/2020 21:23 EDT 03/10/2020 21:26 EDT us Catherine Booth MD POINT OF CARE TEST ORDERAB LES Final Result Performing Organization Address City/[facility]/ZIP Co de Phone Number [facility] [address] [place] [address] * (ABNORMAL) POCT GLUCOSE, INTERFACED (03/10/2020 18:42 EDT) Glucose, POC 154(H) 70 - 100 mg/dL 03/10/2020 18:[address] [facility] installer soft top ID [id number] 03/10/2020 18:[address] [facility] HN LAB POC COMMENT (GLUCOSE) Test Performed by Nursing Services 03/10/2020 18:[address] [facility] Blood CAPILLARY BLOOD / Unknown 03/10/2020 18:42 EDT 03/10/2020 18:47 EDT us Catherine Booth MD POINT OF CARE TEST ORDERAB LES Final Result Performing Organization Address [facility]/ZIP Co de Phone Number [facility] [address] [place] [address] * (ABNORMAL) POCT GLUCOSE, INTERFACED (03/10/2020 12:24 EDT) Glucose, POC 149(H) 70 - 100 mg/dL 03/10/2020 12:[address] [facility] installer soft top ID [id number] 03/10/2020 12:[address] [facility] HN LAB POC COMMENT (GLUCOSE) Test Performed by Nursing Services 03/10/2020 12:[address] [facility] Blood CAPILLARY BLOOD / Unknown 03/10/2020 12:24 EDT 03/10/2020 12:26 EDT us Catherine Booth MD POINT OF CARE TEST ORDERAB LES Final Result Performing Organization Address City/[facility]/ZIP Co de Phone Number [facility] [address] [place] [address] * (ABNORMAL) POCT GLUCOSE, INTERFACED (03/10/2020 8:33 EDT) Glucose, POC 126(H) 70 - 100 mg/dL 03/10/2020 8:[address] [facility] installer soft top ID [id number] 03/10/2020 8:[address] [facility] HN LAB POC COMMENT (GLUCOSE) Test Performed by Nursing Services 03/10/2020 8:[address] [facility] Blood CAPILLARY BLOOD / Unknown 03/10/2020 8:33 EDT 03/10/2020 8:39 EDT us Catherine Booth MD POINT OF CARE TEST ORDERAB LES Final Result Performing Organization Address [facility]/ZIP Co de Phone Number [facility] [address] [place] [address] * ELECTROLYTES (03/10/2020 7:01 EDT) Sodium 141 136 - 145 mEq/L 03/10/2020 8:[address] [facility] Potassium 4.6 3.5 - 5.0 mEq/L 03/10/2020 8:[address] [facility] Chloride 103 96 - 110 mEq/L 03/10/2020 8:[address] [facility] CO2 Total 29 22 - 32 mEq/L 03/10/2020 8:[address] [facility] Blood VENOUS BLOOD / Unknown Venipuncture / Unknown 03/10/2020 7:01 EDT 03/10/2020 7:35 EDT us Adair Martinez PA-C CHEMISTRY & BLOOD GAS ORDE CHANTEL Final Result Performing Organization Address City/[facility]/ZIP Co de Phone Number [facility] [address] [place] [address] * (ABNORMAL) COMPLETE BLOOD COUNT (03/10/2020 7:01 EDT) WBC 12.33 4.00 - 12.40 K/cmm 03/10/2020 7:42 [facility] RBC 4.61 3.86 - 5.04 M/cmm 03/10/2020 7:42 [facility] Hemoglobin 14.1 11.6 - 15.2 gm/dL 03/10/2020 7:42 [facility] HCT 41.4 34.9 - 44.4 % 03/10/2020 7:42 [facility] MCV 90 81 - 98 fl 03/10/2020 7:42 [facility] MCH 30.6 26.7 - 33.3 pg 03/10/2020 7:42 [facility] MCHC 34.1 32.1 - 35.9 gm/dL 03/10/2020 7:42 [facility] RDW-CV 12.3 <14.7 % 03/10/2020 7:42 [facility] RDW-SD 40.3 <50.4 fl 03/10/2020 7:42 [facility] PLT 424(H) 141 - 377 K/cmm 03/10/2020 7:42 [facility] MPV 9.8 9.5 - 12.7 fl 03/10/2020 7:42 [facility] Blood VENOUS BLOOD / Unknown Venipuncture / Unknown 03/10/2020 7:01 EDT 03/10/2020 7:35 EDT us Adair [place] PA-C HEMATOLOGY & PF4 ORDERABLE S Final Result [facility] [address] [place] [address] * (ABNORMAL) CREATININE (03/10/2020 7:01 EDT) Creatinine 0.50(L) 0.52 - 1.04 mg/dL 03/10/2020 8:[address] [facility] eGFR 127 >60 mL/min/1.7 3m2 03/10/2020 8:[address] [facility] Comment:eGFR calculated gil curtis CKD-EPI equation for non- Americans. Multiply eGFR by 1.16 for patients. Blood VENOUS BLOOD / Unknown Venipuncture / Unknown 03/10/2020 7:01 EDT 03/10/2020 7:35 EDT us Adair [place] PA-C CHEMISTRY & BLOOD GAS ORDE RABLES Final Result Performing Organization Address City/[facility]/ZIP Co de Phone Number [facility] [address] [place] [address] * (ABNORMAL) POCT GLUCOSE, INTERFACED (03/09/2020 22:50 EDT) [facility] Glucose, POC 150(H) 70 - 100 mg/dL 03/09/2020 22:[address] [facility] installer soft top ID [id number] 03/09/2020 22:[address] [facility] HN LAB POC COMMENT (GLUCOSE) Test Performed by Nursing Services 03/09/2020 22:[address] [facility] Blood CAPILLARY BLOOD / Unknown 03/09/2020 22:50 EDT 03/09/2020 22:51 EDT us Catherine Booth MD POINT OF CARE TEST ORDERAB LES Final Result Performing Organization Address [facility] Co de Phone Number [facility] [address] [place] [address] * MR FOOT W WO CONTRAST LEFT [...] 70 - 100 mg/dL 03/09/2020 17:[address] [facility] installer soft top ID [id number] 03/09/2020 17:[address] [facility] HN LAB POC COMMENT (GLUCOSE) Test Performed by Nursing Services 03/09/2020 17:[address] [facility] Blood CAPILLARY BLOOD / Unknown 03/09/2020 17:21 EDT 03/09/2020 17:22 EDT us Catherine Booth MD POINT OF CARE TEST ORDERAB LES Final Result [facility] [address] [place] [address] * (ABNORMAL) POCT GLUCOSE, INTERFACED (03/09/2020 13:23 EDT) Glucose, POC 178(H) 70 - 100 mg/dL 03/09/2020 13:[address] [facility] installer soft top ID [id number] 03/09/2020 13:[address] [facility] HN LAB POC COMMENT (GLUCOSE) Test Performed by Nursing Services 03/09/2020 13:[address] [facility] Blood CAPILLARY BLOOD / Unknown 03/09/2020 13:23 EDT 03/09/2020 13:24 EDT us Catherine Booth MD POINT OF CARE TEST ORDERAB LES Final Result [facility] [facility] [address] [place] [address] * (ABNORMAL) POCT GLUCOSE, INTERFACED (03/09/2020 8:38 EDT) Glucose, POC 108(H) 70 - 100 mg/dL 03/09/2020 8:[address] [facility] installer soft top ID [id number] 03/09/2020 8:[address] [facility] HN LAB POC COMMENT (GLUCOSE) Test Performed by Nursing Services 03/09/2020 8:[address] [facility] Blood CAPILLARY BLOOD / Unknown 03/09/2020 8:38 EDT 03/09/2020 8:43 EDT us Catherine Booth MD POINT OF CARE TEST ORDERAB LES Final Result Performing Organization Address City/[facility]/ZIP Co de Phone Number [facility] [address] [place] [address] * (ABNORMAL) POCT GLUCOSE, INTERFACED (03/08/2020 20:52 EDT) Glucose, POC 122(H) 70 - 100 mg/dL 03/08/2020 20:[address] [facility] installer soft top ID [id number] 03/08/2020 20:[address] [facility] HN LAB POC COMMENT (GLUCOSE) Test Performed by Nursing Services 03/08/2020 20:[address] [facility] Blood CAPILLARY BLOOD / Unknown 03/08/2020 20:52 EDT 03/08/2020 20:58 EDT us Catherine Booth MD POINT OF CARE TEST ORDERAB LES Final Result [facility] [address] [place] [address] * POCT GLUCOSE, INTERFACED (03/08/2020 17:44 EDT) Glucose, POC 99 70 - 100 mg/dL 03/08/2020 17:[address] [facility] installer soft top ID [id number] 03/08/2020 17:[address] [facility] HN LAB POC COMMENT (GLUCOSE) Test Performed by Nursing Services 03/08/2020 17:[address] [facility] Blood CAPILLARY BLOOD / Unknown 03/08/2020 17:44 EDT 03/08/2020 17:44 EDT us Catherine Booth MD POINT OF CARE TEST ORDERAB LES Final Result Performing Organization Address City/[facility]/ZIP Co de Phone Number [facility] [address] [place] [address] * (ABNORMAL) POCT GLUCOSE, INTERFACED (03/08/2020 13:15 EDT) Glucose, POC 142(H) 70 - 100 mg/dL 03/08/2020 13:[address] [facility] installer soft top ID [id number] 03/08/2020 13:[address] [facility] HN LAB POC COMMENT (GLUCOSE) Test Performed by Nursing Services 03/08/2020 13:[address] [facility] Blood CAPILLARY BLOOD / Unknown 03/08/2020 13:15 EDT 03/08/2020 13:16 EDT us Catherine Booth MD POINT OF CARE TEST ORDERAB LES Final Result [facility] [address] [place] [address] * (ABNORMAL) POCT GLUCOSE, INTERFACED (03/08/2020 7:45 EDT) Glucose, POC 176(H) 70 - 100 mg/dL 03/08/2020 7:[address] [facility] installer soft top ID [id number] 03/08/2020 7:[address] [facility] HN LAB POC COMMENT (GLUCOSE) Test Performed by Nursing Services 03/08/2020 7:[address] [facility] Blood CAPILLARY BLOOD / Unknown 03/08/2020 7:45 EDT 03/08/2020 7:47 EDT us Catherine Booth MD POINT OF CARE TEST ORDERAB LES Final Result Performing Organization Address [facility] Co de Phone Number [facility] [address] [place] [address] * (ABNORMAL) CREATININE (03/08/2020 7:20 EDT) Creatinine 0.42(L) 0.52 - 1.04 mg/dL 03/08/2020 9:[address] [facility] eGFR 134 >60 mL/min/1.7 3m2 03/08/2020 9:[address] [facility] Comment:eGFR calculated gil curtis CKD-EPI equation for non- Americans. Multiply eGFR by 1.16 for patients. Blood VENOUS BLOOD / Unknown Venipuncture / Unknown 03/08/2020 7:20 EDT 03/08/2020 8:43 EDT us Adair Martinez PA-C CHEMISTRY & BLOOD GAS ORDE RABLES Final Result Performing Organization Address [facility] Co de Phone Number [facility] [address] [place] [address] * ELECTROLYTES (03/08/2020 7:20 EDT) Sodium 139 136 - 145 mEq/L 03/08/2020 9:[address] [facility] Potassium 4.6 3.5 - 5.0 mEq/L 03/08/2020 9:[address] [facility] Chloride 105 96 - 110 mEq/L 03/08/2020 9:[address] [facility] CO2 Total 25 22 - 32 mEq/L 03/08/2020 9:[address] [facility] Blood VENOUS BLOOD / Unknown Venipuncture / Unknown 03/08/2020 7:20 EDT 03/08/2020 8:43 EDT us Adair Martinez PA-C CHEMISTRY & BLOOD GAS ORDE RABLES Final Result [facility] [address] [place] [address] * (ABNORMAL) COMPLETE BLOOD COUNT (03/08/2020 7:20 EDT) WBC 11.24 4.00 - 12.40 K/cmm 03/08/2020 8:[address] [facility] RBC 4.29 3.86 - 5.04 M/cmm 03/08/2020 8:[address] [facility] Hemoglobin 13.2 11.6 - 15.2 gm/dL 03/08/2020 8:[address] [facility] HCT 37.9 34.9 - 44.4 % 03/08/2020 8:[address] [facility] MCV 88 81 - 98 fl 03/08/2020 8:[address] [facility] MCH 30.8 26.7 - 33.3 pg 03/08/2020 8:[address] [facility] MCHC 34.8 32.1 - 35.9 gm/dL 03/08/2020 8:[address] [facility] RDW-CV 12.3 <14.7 % 03/08/2020 8:[address] [facility] RDW-SD 39.5 <50.4 fl 03/08/2020 8:[address] [facility] PLT 406(H) 141 - 377 K/cmm 03/08/2020 8:[address] [facility] MPV 9.9 9.5 - 12.7 fl 03/08/2020 8:[address] [facility] Blood VENOUS BLOOD / Unknown Venipuncture / Unknown 03/08/2020 7:20 EDT 03/08/2020 8:11 EDT us Adair Martinez PA-C HEMATOLOGY & PF4 ORDERABLE S Final Result [facility] [address] [place] [address] * VANCOMYCIN TROUGH (03/07/2020 21:29 EDT) Vancomycin Trough 13.0 10.0 - 20.0 ug/mlL 03/07/2020 22:[address] [facility] Draw Type Not Given 03/07/2020 22:[address] [facility] Blood VENOUS BLOOD / Unknown Venipuncture / Unknown 03/07/2020 21:29 EDT 03/07/2020 21:33 EDT us Cal GARIBAY CHEMISTRY & BLOOD GA S ORDERABLES Final Result Performing Organization Address City/[facility]/ZIP Co de Phone Number [facility] [address] [place] [address] * (ABNORMAL) POCT GLUCOSE, INTERFACED (03/07/2020 21:25 EDT) Glucose, POC 105(H) 70 - 100 mg/dL 03/07/2020 21:[address] [facility] installer soft top ID [id number] 03/07/2020 21:[address] [facility] HN LAB POC COMMENT (GLUCOSE) Test Performed by Nursing Services 03/07/2020 21:[address] [facility] Blood CAPILLARY BLOOD / Unknown 03/07/2020 21:25 EDT 03/07/2020 21:30 EDT us Catherine Booth MD POINT OF CARE TEST ORDERAB LES Final Result [facility] [address] [place] [address] * (ABNORMAL) POCT GLUCOSE, INTERFACED (03/07/2020 17:40 EDT) Glucose, POC 196(H) 70 - 100 mg/dL 03/07/2020 18:[address] [facility] installer soft top ID [id number] 03/07/2020 18:[address] [facility] HN LAB POC COMMENT (GLUCOSE) Test Performed by Nursing Services 03/07/2020 18:[address] [facility] Blood CAPILLARY BLOOD / Unknown 03/07/2020 17:40 EDT 03/07/2020 18:59 EDT Catherine Booth MD POINT OF CARE TEST ORDERAB LES Final Result [facility] [address] [place] [address] * (ABNORMAL) ANAEROBE CULTURE/SMEAR(INC. AEROBES), OTHER (03/07/2020 14:21 EDT) Organism ID Few Staphylococcus aureus(A) 03/13/2020 7:[address] [facility] Comment:Susceptible to nafci llin, cephalosporins and other beta lactam antibiotics (mecA gene product absent). Organism ID Few Streptococcus agalactiae(A) 03/13/2020 7:[address] [facility] Comment:Penicillin and ampic illin are drugs of choice for treatment of beta hemolytic streptococcal infections. Organism ID Few Streptococcus anginosus(A) 03/13/2020 7:[address] [facility] Organism ID Moderate Prevotella bivia(A) 03/13/2020 7:[address] [facility] Smear Few Neutrophils Present(A) 03/13/2020 7:[address] [facility] Smear Few Gram Positive Cocci(A) 03/13/2020 7:[address] [facility] Bone ENTIRE TOE / [...] MICROBIOLOGY - GENERAL ORD ERABLES Final Result [facility] [address] [place] [address] * XR FOOT LEFT 3 OR MORE [...] 70 - 100 mg/dL 03/07/2020 12:[address] [facility] installer soft top ID [id number] 03/07/2020 12:[address] [facility] HN LAB POC COMMENT (GLUCOSE) Test Performed by Nursing Services 03/07/2020 12:[address] [facility] Blood CAPILLARY BLOOD / Unknown 03/07/2020 12:23 EDT 03/07/2020 12:26 EDT us Cal MOISEBS POINT OF CARE TEST O RDERABLES Final Result [facility] [address] [place] [address] * (ABNORMAL) POCT GLUCOSE, INTERFACED (03/07/2020 11:11 EDT) Glucose, POC 187(H) 70 - 100 mg/dL 03/07/2020 11:[address] [facility] installer soft top ID [id number] 03/07/2020 11:[address] [facility] HN LAB POC COMMENT (GLUCOSE) Test Performed by Nursing Services 03/07/2020 11:[address] [facility] Blood CAPILLARY BLOOD / Unknown 03/07/2020 11:11 EDT 03/07/2020 11:21 EDT Catherine Booth MD POINT OF CARE TEST ORDERAB LES Final Result [facility] [address] [place] [address] * (ABNORMAL) POCT GLUCOSE, INTERFACED (03/07/2020 7:37 EDT) Glucose, POC 157(H) 70 - 100 mg/dL 03/07/2020 7:[address] [facility] installer soft top ID [id number] 03/07/2020 7:[address] [facility] HN LAB POC COMMENT (GLUCOSE) Test Performed by Nursing Services 03/07/2020 7:[address] [facility] Blood CAPILLARY BLOOD / Unknown 03/07/2020 7:37 EDT 03/07/2020 7:41 EDT us Catherine Booth MD POINT OF CARE TEST ORDERAB LES Final Result Performing Organization Address City/[facility] Co de Phone Number [facility] [address] [place] [address] * ELECTROLYTES (03/07/2020 7:02 EDT) Pathologist [facility] Sodium 138 136 - 145 mEq/L 03/07/2020 8:[address] [facility] Potassium 4.2 3.5 - 5.0 mEq/L 03/07/2020 8:[address] [facility] Chloride 103 96 - 110 mEq/L 03/07/2020 8:[address] [facility] CO2 Total 27 22 - 32 mEq/L 03/07/2020 8:[address] [facility] Blood VENOUS BLOOD / Unknown Venipuncture / Unknown 03/07/2020 7:02 EDT 03/07/2020 7:46 EDT us Catherine Booth MD CHEMISTRY & BLOOD GAS ORDE RABLES Final Result [facility] [address] [place] [address] * (ABNORMAL) CREATININE (03/07/2020 7:02 EDT) Creatinine 0.44(L) 0.52 - 1.04 mg/dL 03/07/2020 8:[address] [facility] eGFR 132 >60 mL/min/1.7 3m2 03/07/2020 8:[address] [facility] Comment:eGFR calculated usin g CKD-EPI equation for non- Americans. Multiply eGFR by 1.16 for patients. Blood VENOUS BLOOD / Unknown Venipuncture / Unknown 03/07/2020 7:02 EDT 03/07/2020 7:46 EDT us Catherine Booth MD CHEMISTRY & BLOOD GAS ORDE RABLES Final Result [facility] [address] [place] [address] * BUN (03/07/2020 7:02 EDT) BUN 10 10 - 26 mg/dL 03/07/2020 8:[address] [facility] Blood VENOUS BLOOD / Unknown Venipuncture / Unknown 03/07/2020 7:02 EDT 03/07/2020 7:46 EDT us Catherine Booth MD CHEMISTRY & BLOOD GAS ORDE RABLES Final Result [facility] [address] [place] [address] * (ABNORMAL) COMPLETE BLOOD COUNT (03/07/2020 7:02 EDT) WBC 11.29 4.00 - 12.40 K/cmm 03/07/2020 7:[address] [facility] RBC 4.29 3.86 - 5.04 M/cmm 03/07/2020 7:[address] [facility] Hemoglobin 13.0 11.6 - 15.2 gm/dL 03/07/2020 7:[address] [facility] HCT 37.2 34.9 - 44.4 % 03/07/2020 7:[address] [facility] MCV 87 81 - 98 fl 03/07/2020 7:[address] [facility] MCH 30.3 26.7 - 33.3 pg 03/07/2020 7:[address] [facility] MCHC 34.9 32.1 - 35.9 gm/dL 03/07/2020 7:[address] [facility] RDW-CV 12.2 <14.7 % 03/07/2020 7:[address] [facility] RDW-SD 38.5 <50.4 fl 03/07/2020 7:[address] [facility] PLT 387(H) 141 - 377 K/cmm 03/07/2020 7:[address] [facility] MPV 10.0 9.5 - 12.7 fl 03/07/2020 7:[address] [facility] Blood VENOUS BLOOD / Unknown Venipuncture / Unknown 03/07/2020 7:02 EDT 03/07/2020 7:49 EDT us Catherine Booth MD HEMATOLOGY & PF4 ORDERABLE S Final Result Performing Organization Address City/[facility] Co de Phone Number [facility] [address] [place] [address] * (ABNORMAL) POCT GLUCOSE, INTERFACED (03/06/2020 23:53 EDT) [facility] Glucose, POC 262(H) 70 - 100 mg/dL 03/06/2020 23:[address] [facility] installer soft top ID [id number] 03/06/2020 23:[address] [facility] HN LAB POC COMMENT (GLUCOSE) Test Performed by Nursing Services 03/06/2020 23:[address] [facility] Blood CAPILLARY BLOOD / Unknown 03/06/2020 23:53 EDT 03/06/2020 23:57 EDT us Carrington Padilla MD POINT OF CARE TEST ORDERAB LES Final Result Performing Organization Address [facility]/ZIP Co de Phone Number [facility] [address] [place] [address] * COVID-19 TEST [facility] PCR (03/06/2020 22:00 EDT) Swab ENTIRE NASOPHARYNX / Unknown Swab / Unknown 03/06/2020 22:00 EDT 03/06/2020 22:05 EDT Siobhan Hare PA-C MICROBIOLOGY - GENER AL ORDERABLES Final Result Performing Organization Address [facility] Co de Phone Number [facility] [address] [place] [address] * COVID-19 TESTING (03/06/2020 22:00 EDT) COVID-19 rt-PCR Result Negative Negative 03/07/2020 1:[address] [facility] Comment: This test has [...] history, and epidemiological information. Performed on the [employer] Fusion instrument Performing Lab Thida [facility] 03/07/2020 1:[address] [facility] Swab ENTIRE NASOPHARYNX / Unknown Swab / Unknown 03/06/2020 22:00 EDT 03/06/2020 22:05 EDT Siobhan Hare PA-C MICROBIOLOGY - GENER AL ORDERABLES Final Result Performing Organization Address [facility] Co de Phone Number [facility] [address] [place] [address] * (ABNORMAL) FRUCTOSAMINE (03/06/2020 19:26 EDT) Fructosamine, S 360(H) 200 - 285 mcmol/L 03/09/2020 8:44 EDT [facility] Comment: Test Performed by: [facility] [address] [place] [address] Environmental Compliance Manager: Wiley Fry M.D. Ph.D.; CLIA# [id number] Blood VENOUS BLOOD / Unknown Venipuncture / Unknown 03/06/2020 19:26 EDT 03/06/2020 19:48 EDT Catherine Booth MD CHEMISTRY & BLOOD GAS CLEMENTE GOLDEN Final Result [facility] [address] [place] [address] * (ABNORMAL) HEMOGLOBIN A1C (03/06/2020 19:26 EDT) Pathologist [facility] Hemoglobin A1c 10.4(H) <5.7 % 03/07/2020 8:[address] [facility] Comment: Glycemic Status References: [...] Avg Glucose 252 mg/dL 0 8:[address] [facility] Comment:The eAG represents t he A1c result expressed as average glucose in mg/dL. Blood VENOUS BLOOD / Unknown Venipuncture / Unknown 03/06/2020 19:26 EDT 03/06/2020 19:48 EDT Catherine Booth MD CHEMISTRY & BLOOD GAS ORDE RABLES Final Result [facility] [address] [place] [address] * (ABNORMAL) SED. RATE:WESTERGREN (03/06/2020 19:26 EDT) Sed Rate 25(H) 0 - 20 mm/hr 03/06/2020 23:[address] [facility] Blood VENOUS BLOOD / Unknown Venipuncture / Unknown 03/06/2020 19:26 EDT 03/06/2020 19:48 EDT Siobhan Hare PA-C HEMATOLOGY & PF4 ORD ERABLES Final Result Performing Organization Address [facility]/ZIP Co de Phone Number [facility] [address] [place] [address] * (ABNORMAL) C REACTIVE PROTEIN (03/06/2020 19:26 EDT) C-Reactive Protein 27.7(H) <10.0 mg/L 03/06/2020 20:[address] [facility] Blood VENOUS BLOOD / Unknown Venipuncture / Unknown 03/06/2020 19:26 EDT 03/06/2020 19:48 EDT Siobhan Hare PA-C CHEMISTRY & BLOOD GA S ORDERABLES Final Result [facility] [address] [place] [address] * (ABNORMAL) COMPREHENSIVE METABOLIC PANEL (CMP) (03/06/2020 19:26 EDT) Sodium 139 136 - 145 mEq/L 03/06/2020 20:[address] [facility] Potassium 4.2 3.5 - 5.0 mEq/L 03/06/2020 20:[address] [facility] Chloride 101 96 - [...] 9.9 8.5 - 10.5 mg/dL 03/06/2020 20:12 [facility] Calculated Calcium 9.7 8.5 - 10.5 mg/dL 03/06/2020 20:12 [facility] Blood VENOUS BLOOD / Unknown Venipuncture / Unknown 03/06/2020 19:26 EDT 03/06/2020 19:48 EDT us Siobhan Hare PA-C CHEMISTRY & BLOOD GA S ORDERABLES Final Result [facility] [address] [place] [address] * (ABNORMAL) COMPLETE BLOOD COUNT AND DIFFERENTIAL [...] 2.20 - 8.85 K/cmm 03/06/2020 19:[address] [facility] Absolute Lymphocytes 4.62(H) 1.09 - 3.30 K/cmm 03/06/2020 19:[address] [facility] Absolute Monocytes 1.15(H) 0.10 - 0.80 K/cmm 03/06/2020 19:[address] [facility] Absolute Eosinophils 0.37 0.03 - 0.61 K/cmm 03/06/2020 19:[address] [facility] ABS Basophils 0.07 0.01 - 0.11 K/cmm 03/06/2020 19:57 [facility] Absolute Immature Grans 0.07(H) 0.00 - 0.06 K/cmm 03/06/2020 19:[address] [facility] Type of Differential: Auto 03/06/2020 19:[address] [facility] Blood VENOUS BLOOD / Unknown Venipuncture / Unknown 03/06/2020 19:26 EDT 03/06/2020 19:48 EDT Siobhan Hare PA-C PACKAGES & DNA PROBE ORDERABLES Final Result Performing Organization Address City/State/[facility] Co de Phone Number [facility] [address] [place] [address] documented in this encounter Visit Diagnoses Diagnosis [...] Discontinued, Routine 0859 (Given - Provider: Aden Snaz RN) 0844 (Given - Provider: Aden Sanz [...]
--- OUTSIDE RECORDS SUMMARY | 2024-06-03 09:11 | XMS_ITS | Encounter Summary ---
Author Organization [facility] Address [address] [place] [address] Care Team Providers Care Freelance Translator Name Role Phone Unavailable Primary Care Provider Unavailabl e Reason for Visit * Reason Comments Foot Problem * Consult (Routine/Next Available) - Order Cancelled Specialty Diagnoses / Procedures Referred By Kit goode Referred To Contact Orthopedic Surgery Diagnoses Left foot pain Sore on toe ([facility]) Tonja Alejandro PA-C Phone: tel: fax: [facility] [address] [place] [address] Phone: tel: fax: Referral ID Status Reason Start Date Expiration Date Visits Requested Visits Authorized [id number] Order Cancelled Specialty Services Required 11/28/2019 1 1 Encounter Details Date Type Department Care Team (Late st Contact Info) Description 01/01/2020 8:00 EDT Office Visit [facility] - [place] [address] Elza Navarro DPM [address] [place] [address] Chronic pain of left ankle (Primary Dx); Ulcerated, foot, left, with fat layer exposed ([facility]); Type 2 diabetes mellitus with diabetic polyneuropathy, with long-term current use of insulin ([facility]) Social History Tobacco Use Types [...] arthritis 09/04/2015 ??? Type 2 diabetes mellitus ([facility]) 09/03/2015 ??? Anxiety and depression 05/12/2010 ??? Migraine with aura and without status migrainosus, not intractable Past Medical History: Diagnosis Date ??? Anxiety ??? Arthritis 12/05/19- Spine- told years ago ??? Diabetes ([facility]) A1c 10.3 on 11/28/2019 ??? [...] around the ulcer. Protective sensation absent via [place] monofilament 0 out of 10. Left plantar great toe ulcer after debridement: ASSESSMENT: 1. Chronic pain of left ankle XR ANKLE LEFT 3 OR MORE VIEWS 2. Ulcerated, foot, left, with fat layer exposed ([facility]-CMS) XR FOOT LEFT 3 OR MORE VIEWS 3. Type 2 diabetes mellitus with diabetic polyneuropathy, with long-term current use of insulin ([facility]) XR FOOT LEFT 3 OR MORE VIEWS [...] Ulcerated, foot, left, with fat layer exposed ([facility]) Type 2 diabetes mellitus with diabetic polyneuropathy, with long-term current use of insulin ([facility]) documented in this encounter Results [...] Ulcerated, foot, left, with fat layer exposed ([facility]) Type 2 diabetes mellitus with diabetic polyneuropathy, with long-term current use of insulin ([facility]) documented in this encounter Orders Equipment Count Last Ordered Date First Orde red Date GENERIC ORTHO VENDOR DME 1 01/01/2020 documented in this encounter
--- OUTSIDE RECORDS SUMMARY | 2024-06-03 09:11 | XMS_ITS | Encounter Summary ---
Author Organization [facility] Address [address] [place] [address] Care Team Providers Care Collarette Separator Name Role Phone Unavailable Primary Care Provider Unavailabl e Encounter Details Date Type Department Care Team (Late st Contact Info) Description 11/28/2019 16:00 EDT Phlebotomy Only [facility] Laboratory Services - [address] [address] [facility] Type 2 diabetes mellitus with other specified complication, unspecified whether group home insulin use ([facility]); Anxiety and depression; Left foot pain [...] 11/28/2019 15:56 EDT Anxiety and depression URINE [id number] RATIO (ACR) Routine 11/28/2019 15:56 EDT Type 2 diabetes mellitus with other specified complication, unspecified whether group home insulin use ([facility]) COMPLETE BLOOD COUNT AND DIFFERENTIAL Routine 11/28/2019 15:56 EDT Left foot pain C REACTIVE PROTEIN Routine 11/28/2019 15 :56 EDT Left foot pain HEMOGLOBIN A1C Routine 11/28/2019 15:56 EDT Type 2 diabetes mellitus with other specified complication, unspecified whether group home insulin use ([facility]) LIPID PROFILE (INCLUDES CHOLESTEROL, TRIGLYCERIDES, HDL, LDL) Routine 11/28/2019 15:56 EDT Type 2 diabetes mellitus with other specified complication, unspecified whether terminal gauger insulin use ([facility]) COMPREHENSIVE METABOLIC PANEL (CMP) Routine 11/28/2019 15:56 EDT Type 2 diabetes mellitus with other specified complication, unspecified whether terminal gauger insulin use ([facility]) documented in this encounter Results * (ABNORMAL) DIFFERENTIAL, AUTOMATED MANUAL (11/28/2019 15:56 EDT) % Neutrophils 45.7 % 11/28/2019 17:50 [facility] % Banded Neutrophils 0.9 % 11/28/2019 17:50 [facility] % Lymphocytes 37.1 % 11/28/2019 17:50 [facility] % Atypical Lymphocytes 7.7 % 11/28/2019 17:50 [facility] % Monocytes 4.3 % 11/28/2019 17:50 [facility] % Eosinophils 2.6 % 11/28/2019 17:50 [facility] % Basophils 1.7 % 11/28/2019 17:50 [facility] Absolute Neutrophils 6.57 2.20 - 8.85 K/cmm 11/28/2019 17:50 [facility] Absolute Bands 0.13 K/cmm 11/28/2019 17:50 [facility] Absolute Lymphocytes 5.33(H) 1.09 - 3.30 K/cmm 11/28/2019 17:50 [facility] Absolute Atypical Lymphocytes 1.11 K/cmm 11/28/2019 17:50 [facility] Absolute Monocytes 0.62 0.10 - 0.80 K/cmm 11/28/2019 17:50 [facility] Absolute Eosinophils 0.37 0.03 - 0.61 K/cmm 11/28/2019 17:50 [facility] ABS Basophils 0.24(H) 0.01 - 0.11 K/cmm 11/28/2019 17:50 [facility] Blood VENOUS BLOOD / Unknown Venipuncture / Unknown 11/28/2019 15:56 EDT 11/28/2019 15:56 EDT us Tonja Alejandro PA-C HEMATOLOGY & PF4 ORD ERABLES Final Result [facility] [address] [place] [address] * (ABNORMAL) C REACTIVE PROTEIN (11/28/2019 15:56 EDT) C-Reactive Protein 10.6(H) <10.0 mg/L 11/28/2019 17:12 [facility] Blood VENOUS BLOOD / Unknown Venipuncture / Unknown 11/28/2019 15:56 EDT 11/28/2019 15:56 EDT Tonja Alejandro PA-C CHEMISTRY & BLOOD GA S ORDERABLES Final Result [facility] [address] [place] [address] * (ABNORMAL) COMPREHENSIVE METABOLIC PANEL (CMP) (11/28/2019 15:56 EDT) Sodium 134(L) 136 - 145 mEq/L 11/28/2019 17:12 [facility] Potassium 4.2 3.5 - 5.0 mEq/L 11/28/2019 17:12 [facility] Chloride 100 96 - 110 mEq/L 11/28/2019 17:12 [facility] CO2 Total 28 22 - 32 mEq/L 11/28/2019 17:12 [facility] Glucose 301(H) 70 - 100 mg/dL 11/28/2019 17:12 [facility] BUN 14 10 - 26 mg/dL 11/28/2019 17:12 [facility] Creatinine 0.57 0.52 - 1.04 mg/dL 11/28/2019 17:12 [facility] eGFR 121 >60 mL/min/1.7 3m2 11/28/2019 17:12 [facility] Comment:eGFR calculated gil curtis CKD-EPI equation for non- Americans. Multiply eGFR by 1.16 for patients. Total Protein 7.0 6.3 - 8.2 g/dL 11/28/2019 17:12 [facility] Albumin 3.9 3.4 - 4.9 g/dL 11/28/2019 17:12 [facility] Alkaline Phosphatase 100 38 - 126 U/L 11/28/2019 17:12 [facility] AST 17 15 - 46 U/L 11/28/2019 17:12 [facility] ALT 14 <35 U/L 11/28/2019 17:12 [facility] Bilirubin, Total <0.5 <1.4 mg/dL 11/28/19 20 17:12 [facility] Calcium 9.8 8.5 - 10.5 mg/dL 11/28/2019 17:12 [facility] Calculated Calcium 9.9 8.5 - 10.5 mg/dL 11/28/2019 17:12 [facility] Blood VENOUS BLOOD / Unknown Venipuncture / Unknown 11/28/2019 15:56 EDT 11/28/2019 15:56 EDT Tonja Alejandro PA-C CHEMISTRY & BLOOD GA S ORDERABLES Final Result [facility] [address] [place] [address] * (ABNORMAL) COMPLETE BLOOD COUNT AND DIFFERENTIAL (11/28/2019 15:56 EDT) WBC 14.38(H) 4.00 - 12.40 K/cmm 11/28/2019 17:04 [facility] RBC 4.69 3.86 - 5.04 M/cmm 11/28/2019 17:04 [facility] Hemoglobin 14.3 11.6 - 15.2 gm/dL 11/28/2019 17:04 [facility] HCT 40.8 34.9 - 44.4 % 11/28/2019 17:04 [facility] MCV 87 81 - 98 fl 11/28/2019 17:04 [facility] MCH 30.5 26.7 - 33.3 pg 11/28/2019 17:04 [facility] MCHC 35.0 32.1 - 35.9 gm/dL 11/28/2019 17:04 EDT [facility] RDW-CV 12.0 <14.7 % 11/28/2019 17:04 EDT [facility] RDW-SD 38.4 <50.4 fl 11/28/2019 17:04 EDT [facility] PLT 414(H) 141 - 377 K/cmm 11/28/2019 17:04 EDT [facility] MPV 10.1 9.5 - 12.7 fl 11/28/2019 17:04 EDT [facility] Type of Differential: Manual 11/28/2019 17:04 EDT [facility] Blood VENOUS BLOOD / Unknown Venipuncture / Unknown 11/28/2019 15:56 EDT 11/28/2019 15:56 EDT Tonja Alejandro PA-C PACKAGES & DNA PROBE ORDERABLES Final Result [facility] [address] [place] [address] * (ABNORMAL) HEMOGLOBIN A1C (11/28/2019 15:56 EDT) Hemoglobin A1c 10.3(H) <5.7 % 11/29/2019 9:15 EDT [facility] Comment: Glycemic Status References: Normal: [...] Avg Glucose 249 mg/dL 0 9:15 EDT [facility] Comment: The eAG represents the A1c result expressed as average glucose in mg/dL. Blood VENOUS BLOOD / Unknown Venipuncture / Unknown 11/28/2019 15:56 EDT 11/28/2019 15:56 EDT Tonja DAWSON-C CHEMISTRY & BLOOD GA S ORDERABLES Final Result Performing Organization Address [facility] de Phone Number [facility] [address] [place] [address] * THYROID CASCADE (11/28/2019 15:56 EDT) TSH 0.64 0.47 - 4.68 uIU/mL 11/28/2019 17:44 EDT [facility] Blood VENOUS BLOOD / Unknown Venipuncture / Unknown 11/28/2019 15:56 EDT 11/28/2019 15:56 EDT Narrative [facility] - 11/28/2019 17:44 EDT NOTE: TSH [place] is not recommended for patients in which pituitary or hypothalamic disorders are suspected. The results of this assay can be falsely lowered due to the consumption of Biotin. Tonja Alejandro PA-C CHEMISTRY & BLOOD GA S ORDERABLES Final Result Performing Organization Address [facility] de Phone Number [facility] [address] [place] [address] * LIPID PROFILE (INCLUDES CHOLESTEROL, TRIGLYCERIDES, HDL, LDL) (11/28/2019 15:56 EDT) Cholesterol 179 See Note mg/dL 11/28/2019 17:12 EDT [facility] Comment: Acceptable: ?<200 mg/dL Borderline High: 200-239 mg/dL High: ?> or = 240 mg/dL HDL 38 See Note mg/dL 11/28/2019 17:12 EDT [facility] Comment: Low: ? <40 mg/dL Normal: ??40-60 mg/dL High: ?>60 mg/dL LDL, Calculated 61 See Note mg/dL 11/28/2019 17:12 [facility] Comment: Optimal: ? <100 mg/dL Near Optimal: ?100-129 mg/dL Borderline High: 130-159 mg/dL High: ?160-189 mg/dL Very High: ? > or = 190 mg/dL Triglyceride 398 See Note mg/dL 11/28/2019 17:12 EDT [facility] Comment: Normal: ? <150 mg/dL Borderline High: ??150 - 199 mg/dL High: ? 200 - 499 mg/dL Very High: ?> or = 500 mg/dL Chol/HDL Ratio 4.7 See Note 11/28/2019 17:12 [facility] Comment: No reference range has been established for CHOL/HDL ratio. Non HDL Cholesterol 141 See Note mg/dL 11/28/2019 17:12 [facility] Comment: Desirable: ?<130 mg/dL Borderline High: ??130-159 mg/dL High: ? 160-189 mg/dL Very High: ?> or = 190 mg/dL Blood VENOUS BLOOD / Unknown Venipuncture / Unknown 11/28/2019 15:56 EDT 11/28/2019 15:56 EDT us Tonja Alejandro PA-C CHEMISTRY & BLOOD GA S ORDERABLES Final Result [facility] [address] [place] [address] * (ABNORMAL) ALBUMIN, URINE (11/28/2019 15:56 EDT) Albumin, Urine 11.3 See Note mg/dL 2019 16:47 EDT [facility] Comment: NOTE: Reference range not established Creatinine, Urine 143.1 See Note mg/dL 11/28/2019 16:47 EDT [facility] Comment: NOTE: Reference range not established Lab Urine Albumin to Creatinine Ratio 79(H) <30 ug/mg Creatinine 11/28/2019 16:47 EDT [facility] Comment: Urine Albumin/Creatinine Ratio: Normal: <30 ug/mg Creatinine Moderately increased albuminuria: 30-300 ug/mg Creatinine [place] increased albuminuria: >300 ug/mg Creatinine Urine URINE SPECIMEN OBTAINED BY CLEAN CATCH PROCEDURE / Unknown Urine Collect / Unknown 11/28/2019 15:56 EDT 11/28/2019 15:56 EDT Tonja Alejandro PA-C CHEMISTRY & BLOOD GA S ORDERABLES Final Result [facility] [address] [place] [address] documented in this encounter Visit Diagnoses Diagnosis Type 2 diabetes mellitus with other specified complication, unspecified whether terminal gauger insulin use ([facility]) Anxiety and depression Dysthymic disorder Left foot pain Pain in limb documented in this encounter
--- OUTSIDE RECORDS SUMMARY | 2024-06-03 09:11 | XMS_ITS | Encounter Summary ---
Author Organization [facility] Address [address] [place] [address] Care Team Providers Care District Manager Primary Care Sales Name Role Phone Unavailable Primary Care Provider Unavailabl e Reason for Visit * Reason Comments Diabetes Encounter Details Date Type Department Care Team (Latest Contact Info) Description 01/08/2020 10:30 EDT Telemedicine [facility] Endocrinology - [facility] [address] [place] [address] Sara Zafar NP [address] [place] [address] Type 2 diabetes mellitus with hyperglycemia, with long-term current use of insulin ([facility]) (Primary Dx) Social History Tobacco Use [...] in 3 months I will check with DENTAL DIRECTOR on expected HgA1C to have surgery. documented in this encounter Progress Notes * Sara Zafar APRN - 01/08/2020 1030 EDT Subjective: [facility] diabetes Center F/U Note TELEMEDICINE [...] or mental health care. Patient ID: Cristy uLo is an 34 y.o. female. Type 2 [...] trimester miscarriages, most recently terminated a at [facility] The most recent 10/28/2019. Recurrent loss is attributed to to poorly controlled type 2 diabetes in conjunction with tobacco dependence. She saw APPLE PRESS OPERATOR on 11/03/2018, and was advised to get diabetes in control, and to quit smoking both tobacco and pot. She was scheduled for a tubal ligation December 14, but was cancelled again. 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 Previous [...] in 3 months I will check with DENTAL DIRECTOR on expected HgA1C to have surgery. Recommend [...] [facility])- Primary documented in this encounter Discontinued Medications Medication Sig Discontinue Reason Start Date End Da te metFORMIN (GLUCOPHAGE) 500 mg tablet Take 2 Tabs by mouth daily for 90 days. Side effects 11/26/2019 01/08/2020 documented as of this encounter
--- OUTSIDE RECORDS SUMMARY | 2024-06-03 09:11 | XMS_ITS | Encounter Summary ---
Author Organization [facility] Address [address] [place] [address] Care Team Providers Care Drop Forger Name Role Phone Unavailable Primary Care Provider Unavailabl e Reason for Visit * Reason Onset Date Comments Labs Only 12/05/2019 Encounter Details Date Type Department Care Team (Late st Contact Info) Description 12/05/2019 Telephone [facility] OBGYN Services - [address] [id number] Charu Flynn MD [address] [facility], [address] [place] [address] Labs Only Social History Tobacco [...] you can call Pre Op back at [phone]. documented in this encounter Plan of Treatment Not on file documented as of this encounter Visit Diagnoses Not on filedocumented in this encounter
--- OUTSIDE RECORDS SUMMARY | 2024-06-03 09:11 | XMS_ITS | Encounter Summary ---
Author Organization [facility] Address [address] [place] [address] Care Team Providers Care Special Education Itinerant Teacher Name Role Phone Unavailable Primary Care Provider Unavailabl e Reason for Visit * Reason Comments Social Work Encounter Details Date Type Department Care Team (Late st Contact Info) Description 12/19/2019 Community Health Team [facility] OBGYN Services - [address] [address] Eryn Diaz Social History Tobacco Use Types [...]
--- OUTSIDE RECORDS SUMMARY | 2024-06-03 09:12 | XMS_ITS | Encounter Summary ---
Author Organization [facility] Address [address] [place] [address] Care Team Providers Care Derrick Engineer Name Role Phone None, Provider Primary Care Provider Unavailabl e Reason for Visit * Reason Comments Injections RhoGAM Encounter Details Date Type Department Care Team (Late st Contact Info) Description 10/03/2019 10:30 EDT Office Visit [facility] Obstetrics & Midwifery - [facility] [address] [place] [address] Nurse, Mfm First trimester bleeding (Primary Dx) [...] eltoid documented in this encounter Care Teams Derrick Engineer Relationship Specialty Start Date End Date None, Provider PCP - General 06/18/19 11/25/19 documented as of this encounter
--- OUTSIDE RECORDS SUMMARY | 2024-06-03 09:12 | XMS_ITS | Encounter Summary ---
Author Organization [facility] Address [address] [place] [address] Care Team Providers Care Animal Husbandry Technician Name Role Phone None, Provider Primary Care Provider Unavailabl e Reason for Visit * Reason Comments Procedure SARAH * Consult (3 - 10 Business Days) - Closed Specialty Diagnoses / Procedures Referred By Contlesli t Referred To Contact Diagnoses in first trimester Andrés Mcfarlane MD Phone: tel: fax: [facility] Obstetrics & Midwifery - [address] [address] Phone: tel: fax: Referral ID Status Reason Start Date Expiration Date V isits Requested Visits Authorized [id number] Closed Specialty Services Required 10/11/2019 1 1 Encounter Details Date Type Department Care Team (Late st Contact Info) Description 10/12/2019 15:00 EDT Initial consult [facility] OBGYN Services - [address] [id number] David Martínez MD [address] [place] [address], [address] [place] [address] Missed (Primary Dx) Social History [...] consent, the patient was placed on the DIALYSIS BIOMED TECHNICIAN exam table and a bedside ultrasound performed. [...] documented in this encounter Care Teams Animal Husbandry Technician Relationship Specialty Start Date End Date None, Provider PCP - General 06/18/19 11/25/19 documented as of this encounter
--- OUTSIDE RECORDS SUMMARY | 2024-06-03 09:12 | XMS_ITS | Encounter Summary ---
Author Organization [facility] Address [address] [place] [address] Care Team Providers Care Speeder Frame Tender Name Role Phone None, Provider Primary Care Provider Unavailabl e Reason for Referral * JUVENILE DETENTION OFFICER (Routine) - Specialty Report Received Specialty Diagnoses / Procedures Referred By Contac t Referred To Contact Diagnoses of unknown anatomic location Procedures OB FIRST TRIMESTER (LESS THAN 14 WEEKS) TRANSVAGINAL Charu Flynn MD Phone: tel: fax: Referral ID Status Reason Start Date Expiration Date V isits Requested Visits Authorized [id number] Specialty Report Received 09/03/2019 1 1 Reason for Visit * JUVENILE DETENTION OFFICER (Routine) - Specialty Report Received Specialty Diagnoses / Procedures Referred By Contac t Referred To Contact Diagnoses of unknown anatomic location Procedures US OB FIRST TRIMESTER (LESS THAN 14 WEEKS) TRANSVAGINAL Charu Flynn MD Phone: tel: fax: Referral ID Status Reason Start Date Expiration Date V isits Requested Visits Authorized [id number] Specialty Report Received 09/03/2019 1 1 Encounter Details Date Type Department Care Team (Latest Contact Info) Description 09/05/2019 10:26 EDT - 09/06/2019 23:59 EDT Hospital Encounter [facility] OBGYN Services - [facility] [place] [address] [place] [address] of unknown anatomic location Discharge Disposition: Home [...] Sufficient. Impression 1st Trimester OB scan ,transvaginal [id number] Single intrauterine gestational sac and yolk sac. [...] Sufficient. Impression 1st Trimester OB scan ,transvaginal +[id number] Single intrauterine gestational sac and yolk sac. A pole cannot beclearly identified on today's examination. Follow-up follow up US in 2 weeks. Comment ========= Z34.8 encounter for supervision of other normal . Resultsdiscussed w/patient. DATE OF SERVICE: 09/05/2019 Charu Flynn MD [facility] OB ORDERABLES Fin al Result documented in this encounter Visit Diagnoses Diagnosis of unknown anatomic location state, incidental documented in this encounter Care Teams Speeder Frame Tender Relationship Specialty Start Date End Date None, Provider PCP - General 06/18/19 11/25/19 documented as of this encounter
--- OUTSIDE RECORDS SUMMARY | 2024-06-03 09:12 | XMS_ITS | Encounter Summary ---
Author Organization [facility] Address [address] [place] [address] Care Team Providers Care Squilgeer Name Role Phone None, Provider Primary Care Provider Unavailabl e Reason for Referral * END FRAZER (Routine) - Specialty Report Received Specialty Diagnoses / Procedures Referred By Contac t Referred To Contact Diagnoses of unknown anatomic location Procedures OB FIRST TRIMESTER (LESS THAN 14 WEEKS) TRANSVAGINAL Charu Flynn MD Phone: tel: fax: Referral ID Status Reason Start Date Expiration Date V isits Requested Visits Authorized [id number] Specialty Report Received 09/03/2019 1 1 Reason for Visit * Reason Onset Date Comments Results 09/03/2019 Encounter Details Date Type Department Care Team (Late st Contact Info) Description 09/03/2019 Telephone [facility] OBGYN Services - [address] [id number] Susana Tomlinson, RN Results Social History Tobacco [...] RN - 09/03/2019 1218 EDT Cristy [facility]: asking if blood work results are back. [...] using Lysol on everything & using hand safety associate. Advsied should put on a mask when [...] Sufficient. Impression 1st Trimester OB scan ,transvaginal +[phone] Single intrauterine gestational sac and yolk sac. [...] Sufficient. Impression 1st Trimester OB scan ,transvaginal +[phone] Single intrauterine gestational sac and yolk sac. A pole cannot beclearly identified on today's examination. Follow-up follow up US in 2 weeks. Comment ========= Z34.8 encounter for supervision of other normal . Resultsdiscussed w/patient. DATE OF SERVICE: 09/05/2019 us Charu Flynn MD [facility] US OB ORDERABLES Fin al Result documented in this encounter Visit Diagnoses Diagnosis of unknown anatomic location- Primary state, incidental of unknown anatomic location state, incidental documented in this encounter Care Teams Squilgeer Relationship Specialty Start Date End Date None, Provider PCP - General 06/18/19 11/25/19 documented as of this encounter
--- OUTSIDE RECORDS SUMMARY | 2024-06-03 09:12 | XMS_ITS | Encounter Summary ---
Author Organization [facility] Address [address] [place] [address] Care Team Providers Care Aerial Sprayer Name Role Phone None, Provider Primary Care Provider Unavailabl e Reason for Visit * Reason Onset Date Comments Vaginal Bleeding 10/02/2019 Encounter Details Date Type Department Care Team (Late st Contact Info) Description 10/02/2019 Telephone [facility] Obstetrics & Midwifery - [facility] [address] [place] [address] Jenny Heart, RN Vaginal Bleeding Social History [...] on filedocumented in this encounter Care Teams Aerial Sprayer Relationship Specialty Start Date End Date None, Provider PCP - General 06/18/19 11/25/19 documented as of this encounter
--- OUTSIDE RECORDS SUMMARY | 2024-06-03 09:12 | XMS_ITS | Encounter Summary ---
Author Organization [facility] Address [address] [place] [address] Care Team Providers Care Completions Manager Name Role Phone None, Provider Primary Care Provider Unavailabl e Reason for Visit * Reason Onset Date Comments Other 10/12/2019 Follow up call , seen in ED with vaginal bleeding, miscarriage. Encounter Details Date Type Department Care Team (Late st Contact Info) Description 10/12/2019 Telephone [facility] OBGYN Services - [facility] [address] [place] [address] Jordyn Wolfe, MARCELO Other (Follow up call [...] do this today. Per communication with nurse sales performance manager Mary, will be able to staff procedure today. Appointment set up for [address] Martínez will call patient to confirm plan. * Telephone Encounter - Jordyn Wolfe RN - 10/12/2019 1027 EDT Call to director social welfare Niru Diaz. Niru will call patient as follow up counseling case manager to miscarriage. * Telephone Encounter - Jordyn [...] on filedocumented in this encounter Care Teams Completions Manager Relationship Specialty Start Date End Date None, Provider PCP - General 06/18/19 11/25/19 documented as of this encounter
--- OUTSIDE RECORDS SUMMARY | 2024-06-03 09:12 | XMS_ITS | Encounter Summary ---
Author Organization [facility] Address [address] [place] [address] Care Team Providers Care Net Coordinator Name Role Phone None, Provider Primary [...] filedocumented in this encounter Care Teams Net Coordinator Relationship Specialty Start Date End Date None, Provider PCP - General 06/18/19 11/25/19 documented as of this encounter
--- OUTSIDE RECORDS SUMMARY | 2024-06-03 09:12 | XMS_ITS | Encounter Summary ---
Author Organization [facility] Address [address] [place] [address] Care Team Providers Care Masonry Teacher Name Role Phone None, Provider Primary Care Provider Unavailabl e Reason for Visit * Reason Onset Date Comments Other 10/16/2019 Follow up. Encounter Details Date Type Department Care Team (Late st Contact Info) Description 10/16/2019 Telephone [facility] OBGYN Services - [address] [address] Jordyn Wolfe, MARCELO Other (Follow up.) Social [...] patient miscarriage. Patient did speak to social work specialist Elo Diaz who reached out to me [...] needs to speak to nurse or social work specialist. Patient states currently feels well supported and expressed gratitude towards our staff for supporting her also. * Telephone Encounter - Jordyn Wolfe RN - 10/16/2019 1427 EDT Call to social work specialistkalia Diaz.Asked best number/time to call. documented in this encounter Plan of Treatment Not on file documented as of this encounter Visit Diagnoses Not on filedocumented in this encounter Care Teams Masonry Teacher Relationship Specialty Start Date End Date None, Provider PCP - General 06/18/19 11/25/19 documented as of this encounter
--- OUTSIDE RECORDS SUMMARY | 2024-06-03 09:12 | XMS_ITS | Encounter Summary ---
Author Organization [facility] Address [address] [place] [address] Care Team Providers Care Convertible Power Shovel Operator Name Role Phone None, Provider Primary [...] 8:19 EST - 06/18/2019 15:19 EST Emergency [facility] Emergency Department - [facility] Lead [address] [place] [id number] Maldonado Schuler PA-C [address] [place] [address], Level [address] [place] [phone] Acute non-recurrent maxillary sinusitis (Primary Dx); Acute [...] be sent through Care Everywhere. * Sinusitis (Icelandic) documented in this encounter Medications at [...] recent long-distance travel or immobilizations. 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 Review of [...] appears to be a good tracing. Attending dairy farm operator not immediately available for acute interpretation. [...] follow-up with primary care physician and discussed zhsr-sil-xpxumzp medications for pain control. Patient and family [...] 06/18/2019 16:2 1 EST us Scan 2 Mortgage Loan Processor PROCEDURE/MINOR SURGICAL OR DERABLES Final Result * [...] andagree with the findings. Maldonado Schuler PA-C [facility] DIAGNOSTIC IMAGING ORDERABLES Final Result * (ABNORMAL) BASIC METABOLIC PANEL (BMP) (06/18/2019 9:01 EST) Sodium 136 136 - 145 mEq/L 06/18/2019 9:25 [facility] Potassium 4.6 3.5 - 5.0 mEq/L 06/18/2019 9:25 [facility] Chloride 102 96 - 110 mEq/L 06/18/2019 9:25 [facility] CO2 Total 27 22 - 32 mEq/L 06/18/2019 9:25 [facility] Glucose 256(H) 70 - 100 mg/dL 06/18/2019 9:25 [facility] Calcium 9.2 8.5 - 10.5 mg/dL 06/18/2019 9:25 [facility] Calculated Calcium 9.4 8.5 - 10.5 mg/dL 06/18/2019 9:25 [facility] BUN 10 10 - 26 mg/dL 06/18/2019 9:25 [facility] Creatinine 0.43(L) 0.52 - 1.04 mg/dL 06/18/2019 9:25 [facility] eGFR 133 >60 mL/min/1.7 3m2 06/18/2019 9:25 [facility] Comment:eGFR calculated gil curtis CKD-EPI equation for non- Americans. Multiply eGFR by 1.16 for patients. Blood VENOUS BLOOD / Unknown Venipuncture / Unknown 06/18/2019 9:01 EST 06/18/2019 9:09 EST Maldonado Schuler PA-C CHEMISTRY & BLOOD GAS O RDERABLES Final Result [facility] [address] [place] [address] * (ABNORMAL) COMPLETE BLOOD COUNT AND DIFFERENTIAL (06/18/2019 9:01 EST) WBC 10.84 4.00 - 12.40 K/cmm 06/18/2019 9:15 [facility] RBC 4.58 3.86 - 5.04 M/cmm 06/18/2019 9:15 [facility] Hemoglobin 14.1 11.6 - 15.2 gm/dL 06/18/2019 9:15 [facility] HCT 40.9 34.9 - 44.4 % 06/18/2019 9:15 [facility] MCV 89 81 - 98 fl 06/18/2019 9:15 [facility] MCH 30.8 26.7 - 33.3 pg 06/18/2019 9:15 [facility] MCHC 34.5 32.1 - 35.9 gm/dL 06/18/2019 9:15 [facility] RDW-CV 12.2 <14.7 % 06/18/2019 9:15 [facility] RDW-SD 39.5 <50.4 fl 06/18/2019 9:15 [facility] PLT 349 141 - 377 K/cmm 06/18/2019 9:15 [facility] MPV 9.6 9.5 - 12.7 fl 06/18/2019 9:15 [facility] % Neutrophils 51.3 % 06/18/2019 9:15 [facility] % Lymphocytes 33.8 % 06/18/2019 9:15 [facility] % Monocytes 9.9 % 06/18/2019 9:15 [facility] % Eosinophils 4.2 % 06/18/2019 9:15 [facility] % Basophils 0.5 % 06/18/2019 9:15 [facility] % Immature Grans 0.3 % 06/18/19 20 9:15 [facility] Absolute Neutrophils 5.57 2.20 - 8.85 K/cmm 06/18/2019 9:15 [facility] Absolute Lymphocytes 3.66(H) 1.09 - 3.30 K/cmm 06/18/2019 9:15 [facility] Absolute Monocytes 1.07(H) 0.10 - 0.80 K/cmm 06/18/2019 9:15 [facility] Absolute Eosinophils 0.46 0.03 - 0.61 K/cmm 06/18/2019 9:15 [facility] ABS Basophils 0.05 0.01 - 0.11 K/cmm 06/18/2019 9:15 [facility] Absolute Immature Grans 0.03 0.00 - 0.06 K/cmm 06/18/2019 9:15 [facility] Type of Differential: Auto 06/18/2019 9:15 [facility] Blood VENOUS BLOOD / Unknown Venipuncture / Unknown 06/18/2019 9:01 EST 06/18/2019 9:09 EST us Maldonado Taylor Clair PA-C PACKAGES & DNA PROBE OR DERABLES Final Result [facility] [address] [place] [id number] * EKG 12-LEAD (06/18/2019 8:28 EST) 06/18/2019 8:28 EST Narrative [facility] EKG - 06/18/2019 14:05 EST ?[facility] Emergency ? Test Date: ?2019-06-18 Pat Name: ? CRISTY LUO ?Department: ?? ED ? Room: ? GT33 Gender: ? Female ? Instrument Lens Grinder Apprentice: ?? [id number] : ?1985 ? Requested By: Reid BRYAN MALDONADO Order Number: [id number] ? Reading MD: ?? FRAN LUCIANO SA, MD ? Measurements Intervals ?Gregory ? Rate: ? 94 ? P: ?51 UT: ? 138 ?QRS: ?8 QRSD: ? 88 [...] LUO Department: ED Room: 33 Gender: Female Instrument Lens Grinder Apprentice: [id number] : 1985 Requested By: [facility] R[facility] OKEEFE Order Number: [id number] Sammie MD: FRAN GRAYSON Measurements Intervals Gregory Rate: 94 P: 51 UT: 138 QRS: 8 QRSD: 88 T: 1 [...] Schuler PA-C CARDIAC ECG ORDERABLES Final Result [facility] EKG documented in this encounter Visit [...] not cover this medication. There is an ghux-hfr-qgchttj cream or an aord-imi-simgeia patch with a lower concentration that is [...] dose, On Tue06/18/19 at 0900, STAT 0906 ([facility] ider: Judi Merrill RN) documented in this encounter Care Teams Convertible Power Shovel Operator Relationship Specialty Start Date End Date None, Provider PCP - General 06/18/19 11/25/19 documented as of this encounter
--- OUTSIDE RECORDS SUMMARY | 2024-06-03 09:12 | XMS_ITS | Encounter Summary ---
Author Organization [facility] Address [address] [place] [address] Care Team Providers Care Diamond Driller Helper Name Role Phone None, Provider Primary Care Provider Unavailabl e Reason for Visit * Reason Comments Social Work Encounter Details Date Type Department Care Team (Late st Contact Info) Description 11/05/2019 Community Health Team [facility] OBGYN Services - [address] [address] Eryn Diaz Social History Tobacco Use Types [...] and her grieving process. Pt lives in [place] with Fermin, her 8 yo step francois [...] dragonfly tattoos for birthday - Checked out [facility] thx practice that SW had rec - declines being connected with a thx ATT, but open to it if needed - rep very self-aware and knows resources - Pt participating in a loss support group on Location that has been helpful - Pt req short term couns with this SW - planned for an appt before her tubal procedure and 1 after SW mailed pt a gas card and contact info. Next SW appt 11/25 via zoom - emailed pt link. [facility] Total Time: 1.5 hours total 1 hour, 5 min via zoom with pt 5 min via email with pt 20 min charting Referral: [facility] Follow up: Date: Tuesday, November 26, 2019 Time: 10 AM With: Eryn Diaz Sql Developer Location: zoom Status: Active documented in this encounter Plan of Treatment Not on file documented as of this encounter Visit Diagnoses Not on filedocumented in this encounter Care Teams Diamond Driller Helper Relationship Specialty Start Date End Date None, Provider PCP - General 06/18/19 11/25/19 documented as of this encounter
--- OUTSIDE RECORDS SUMMARY | 2024-06-03 09:12 | XMS_ITS | Encounter Summary ---
Author Organization [facility] Address [address] [place] [address] Care Team Providers Care Men'S Designer Name Role Phone None, Provider Primary [...] on filedocumented in this encounter Care Teams Men'S Designer Relationship Specialty Start Date End Date None, Provider PCP - General 06/18/19 11/25/19 documented as of this encounter
--- OUTSIDE RECORDS SUMMARY | 2024-06-03 09:12 | XMS_ITS | Encounter Summary ---
Author Organization [facility] Address [address] [place] [address] Care Team Providers Care Tub Chucker Name Role Phone None, Provider Primary Care Provider Unavailabl e Reason for Visit * Reason Onset Date Comments Appointment Related 10/12/2019 Encounter Details Date Type Department Care Team (Late st Contact Info) Description 10/12/2019 Telephone [facility] OBGYN Services - [facility] [address] [place] [address] Karoline Wolfe, MARCELO Appointment Related Social History [...] to patient. I spoke to patient. manager monitoring Mary Hurtado and Dr. Martínez approve if [...] Primary documented in this encounter Care Teams Tub Chucker Relationship Specialty Start Date End Date None, Provider PCP - General 06/18/19 11/25/19 documented as of this encounter
--- OUTSIDE RECORDS SUMMARY | 2024-06-03 09:12 | XMS_ITS | Encounter Summary ---
Author Organization [facility] Address [address] [place] [address] Care Team Providers Care News Assignment Editor Name Role Phone None, Provider Primary Care Provider Unavailabl e Reason for Visit * Reason Comments Nutrition Counseling Type 2 DM first tri mester * Consult (Routine) - Order Cancelled Specialty Diagnoses / Procedures Referred By Kit goode Referred To Contact Obstetrics Diagnoses with type 2 diabetes mellitus in first trimester Mayra Lund MD Phone: tel: fax: [facility] Obstetrics & Midwifery [address] [address] Phone: tel: fax: Referral ID Status Reason Start Date Expiration Date Visits Requested Visits Authorized [id number] Order Cancelled Specialty Services Required 10/01/2019 1 1 Encounter Details Date Type Department Care Team (Late st Contact Info) Description 10/08/2019 14:00 EDT Nutrition [facility] Obstetrics & Midwifery [address] [address] Peoplesoft Analyst, [facility] Ep4 Obgyn Class 2 severe obesity due to excess calories with serious comorbidity in adult, unspecified BMI ([facility]); Type 2 diabetes mellitus with other specified complication, unspecified whether intermediate insulin use ([facility]) Social History Tobacco Use Types Packs/Day Years [...] Carline Weathers, LUCILLE - 10/08/2019 1400 EDT carnival worker Clinic Initial Nutrition Assessment Form Attempted Telehealth visit, but Telehealth is not available (for me or for the patient). Obtained verbal consent from patient or the patient's adult visitor services representative for use of the telephone to [...] with serious comorbidity in adult, unspecified BMI ([facility]) Type 2 diabetes mellitus with other specified complication, unspecified whether terminal make up operator insulin use ([facility]) documented in this encounter Care Teams News Assignment Editor Relationship Specialty Start Date End Date None, Provider PCP - General 06/18/19 11/25/19 documented as of this encounter
--- OUTSIDE RECORDS SUMMARY | 2024-06-03 09:12 | XMS_ITS | Encounter Summary ---
Author Organization [facility] Address [address] [place] [address] Care Team Providers Care Fagot Heater Helper Name Role Phone None, Provider Primary [...] on filedocumented in this encounter Care Teams Fagot Heater Helper Relationship Specialty Start Date End Date None, Provider PCP - General 06/18/19 11/25/19 documented as of this encounter
--- OUTSIDE RECORDS SUMMARY | 2024-06-03 09:12 | XMS_ITS | Encounter Summary ---
Author Organization [facility] Address [address] [place] [address] Care Team Providers Care Building Performance Consultant Name Role Phone None, Provider Primary Care Provider Unavailabl e Reason for Visit * Reason Onset Date Comments COVID-19 11/22/2019 Encounter Details Date Type Department Care Team (Late st Contact Info) Description 11/22/2019 Orders Only [facility] OBGYN Services - [address] [address] Susana Tomlinson, RN Sterilization (Primary Dx) Social [...] Primary documented in this encounter Care Teams Building Performance Consultant Relationship Specialty Start Date End Date None, Provider PCP - General 06/18/19 11/25/19 documented as of this encounter
--- OUTSIDE RECORDS SUMMARY | 2024-06-03 09:12 | XMS_ITS | Encounter Summary ---
Author Organization [facility] Address [address] [place] [address] Care Team Providers Care Extension Service Specialist In Charge Name Role Phone None, Provider Primary Care Provider Unavailabl e Encounter Details Date Type Department Care Team (Late st Contact Info) Description 10/04/2019 Orders Only [facility] Obstetrics & Midwifery - [address] [address] Kylah Jimenes, RN Social History Tobacco Use [...] this encounter Care Teams Extension Service Specialist In Charge Relationship Specialty Start Date End Date None, Provider PCP - General 06/18/19 11/25/19 documented as of this encounter
--- OUTSIDE RECORDS SUMMARY | 2024-06-03 09:12 | XMS_ITS | Encounter Summary ---
Author Organization [facility] Address [address] [place] [address] Care Team Providers Care Reconnaissance Man Name Role Phone None, Provider Primary Care Provider Unavailabl e Reason for Visit * Reason Comments Advice Only patient states I w ant a tubal, cut, tie, burn. I want no more chances of or miscarriage Encounter Details Date Type Department Care Team (Latest Contact Info) Description 11/02/2019 8:15 EDT Initial consult [facility] OBGYN Services - [facility] [address] [place] [address] Patricia Sifuentes MD [address] [place] [phone] Consultation for female sterilization (Primary Dx) [...] 11/02/2019 9:08 Obstetrics & Gynecology, PGY-1 Pager [phone] * Callum Callejas MD - 11/02/2019 0815 [...] documented as of this encounter Care Teams Reconnaissance Man Relationship Specialty Start Date End Date None, Provider PCP - General 06/18/19 11/25/19 documented as of this encounter
--- OUTSIDE RECORDS SUMMARY | 2024-06-03 09:12 | XMS_ITS | Encounter Summary ---
Author Organization [facility] Address [address] [place] [address] Care Team Providers Care Echocardiologist Name Role Phone None, Provider Primary Care Provider Unavailabl e Reason for Visit * Reason Onset Date Comments Pharmacy 10/29/2019 Encounter Details Date Type Department Care Team (Late st Contact Info) Description 10/29/2019 Telephone [facility] Urgent Care - [facility] [address] [place] [address] Monique Gramajo, GUSTAVO [address] [place] [address] Pharmacy Social History Tobacco Use [...] on filedocumented in this encounter Care Teams Echocardiologist Relationship Specialty Start Date End Date None, Provider PCP - General 06/18/19 11/25/19 documented as of this encounter
--- OUTSIDE RECORDS SUMMARY | 2024-06-03 09:12 | XMS_ITS | Encounter Summary ---
Author Organization [facility] Address [address] [place] [address] Care Team Providers Care Electrical Engineering Professor Name Role Phone None, Provider Primary Care Provider Unavailabl e Reason for Visit * Reason Onset Date Comments 08/30/2019 Encounter Details Date Type Department Care Team (Late st Contact Info) Description 08/30/2019 Telephone [facility] Obstetrics & Midwifery - [facility] [address] [place] [address] Kylah Jimenes RN Social History Tobacco Use [...] Initial Appt Screening Form Best Contact Number: [phone] [facility] Provider: HUGO Previous MFM Patient: [...] patient packet mailed to confirmed address in [facility]: No Other comments: Has seen Endo, but not since 11/22. Previous ectopic -- notes in [facility]. HCG orders placed. Pt aware to get drawn 48 hours apart. She isaware that she will get a call from a nurse with a plan after the results are in. She is agreeable to this. Message routed to PEDIATRIC SURGEON team to get into Beta Book. documented in this encounter Plan of Treatment Not on file documented as of this encounter Results * (ABNORMAL) QUANT BETA HCG, (09/02/2019 9:42 EDT) Beta HCG Quant, 707(H) <5 mIU/ml 09/02/2019 10:30 EDT [facility] Comment: NOTE: : Negative: Less [...] GAS OR DERABLES Final Result [facility] [address] [place] [address] documented in this encounter Visit Diagnoses Diagnosis affected by previous ectopic - Primary documented in this encounter Care Teams Electrical Engineering Professor Relationship Specialty Start Date End Date None, Provider PCP - General 06/18/19 11/25/19 documented as of this encounter
--- OUTSIDE RECORDS SUMMARY | 2024-06-03 09:12 | XMS_ITS | Encounter Summary ---
Author Organization [facility] Address [address] [place] [address] Care Team Providers Care Potato Chip Processing Supervisor Name Role Phone None, Provider Primary [...] filedocumented in this encounter Care Teams Potato Chip Processing Supervisor Relationship Specialty Start Date End Date None, Provider PCP - General 06/18/19 11/25/19 documented as of this encounter
--- OUTSIDE RECORDS SUMMARY | 2024-06-03 09:12 | XMS_ITS | Encounter Summary ---
Author Organization [facility] Address [address] [place] [address] Care Team Providers Care Field Clerk Name Role Phone None, Provider Primary Care Provider Unavailabl e Reason for Visit * Reason Comments Initial Visit Encounter Details Date Type Department Care Team (Late st Contact Info) Description 10/01/2019 15:00 EDT Telemedicine [facility] Obstetrics & Midwifery - [address] [phone] Deepali Le MD [address] [place] [address], [address] [place] [address] with type 2 diabetes mellitus [...] Mayra Lund MD - 10/01/2019 1500 EDT [facility] Maternal Medicine History & Physical Cristy [...] has ranged from 8.8-11.2. Hasn't seen an general internal medicine doctor in about a year due to some [...] 5 06/2017 6w0d SAB Comments: D&C at University [...] medical history of Depression, Diabetes mellitus ([facility]), Migraine, unspecified, without mention of intractable migraine [...] the family. FOB great uncles all had [place] under age 35. FOB twin brother at [...] miscarriage. High-risk in first trimester - Reviewed [facility] group practice and clinic flow. - [...] Lund MD PhD MFM Fellow, PGY5 Pager #[phone] Today's visit was provided through telemedicine audio-visual [...] application used to conduct the visit was [employer]. I spent a total of 15 minutes [...] in first trimester (Resolved 11/02/2019) - Reviewed [facility] group practice and clinic flow. - [...] as of this encounter Care Teams Field Clerk Relationship Specialty Start Date End Date None, Provider PCP - General 06/18/19 11/25/19 documented as of this encounter
--- OUTSIDE RECORDS SUMMARY | 2024-06-03 09:12 | XMS_ITS | Encounter Summary ---
Author Organization [facility] Address [address] [place] [address] Care Team Providers Care Ecommerce Manager Name Role Phone None, Provider Primary [...] on filedocumented in this encounter Care Teams Ecommerce Manager Relationship Specialty Start Date End Date None, Provider PCP - General 06/18/19 11/25/19 documented as of this encounter
--- OUTSIDE RECORDS SUMMARY | 2024-06-03 09:12 | XMS_ITS | Encounter Summary ---
Author Organization [facility] Address [address] [place] [address] Care Team Providers Care Boilermaker Loftsman Name Role Phone None, Provider Primary Care Provider Unavailabl e Encounter Details Date Type Department Care Team (Late st Contact Info) Description 09/05/2019 Orders Only [facility] OBGYN Services - [address] [address] Jonas Ojeda MD [address] [place] [address] [phone] Less than 8 weeks gestation [...] incidental documented in this encounter Care Teams Boilermaker Loftsman Relationship Specialty Start Date End Date None, Provider PCP - General 06/18/19 11/25/19 documented as of this encounter
--- OUTSIDE RECORDS SUMMARY | 2024-06-03 09:12 | XMS_ITS | Encounter Summary ---
Author Organization [facility] Address [address] [place] [address] Care Team Providers Care Manager Bank Name Role Phone None, Provider Primary Care Provider Unavailabl e Reason for Visit * Reason Comments Social Work Encounter Details Date Type Department Care Team (Late st Contact Info) Description 10/16/2019 Community Health Team [facility] OBGYN Services - [address] [address] Eryn Diaz Social History Tobacco Use Types [...] lbs. Pt [facility] that she believes caused SI/SP. Pt rep she was on a bridge in [place] and about to jump to lots of [...] SW rec pt at least check out [employer] website - described this thx practice was [...] dates, SW will refer pt to contact Bizdom to facilitate record request. Jordyn will submit [facility] SW referral later this week; SW will zandra pt status as pending for now. Next SW appt 11/04 via ph. SW will email pt zoom meeting info ([email or web address]). [facility] Total Time: 1 hour total 35 min via ph with pt 10 min care coord 15 min charting Referral: Yobany José and PMHNP Denita Brantley Follow up: Date: Tuesday, November 05, 2019 Time: 10 AM With: Eryn Diaz Die Try Out Worker Stamping Location: ph Status: Pending documented in this encounter Plan of Treatment Not on file documented as of this encounter Visit Diagnoses Not on filedocumented in this encounter Care Teams Manager Bank Relationship Specialty Start Date End Date None, Provider PCP - General 06/18/19 11/25/19 documented as of this encounter
--- OUTSIDE RECORDS SUMMARY | 2024-06-03 09:12 | XMS_ITS | Encounter Summary ---
Author Organization [facility] Address [address] [place] [address] Care Team Providers Care Management Coordinator Name Role Phone None, Provider Primary Care Provider Unavailabl e Reason for Visit * Reason Onset Date Comments Advice Only 10/02/2019 Encounter Details Date Type Department Care Team (Late st Contact Info) Description 10/02/2019 Telephone [facility] OBGYN Services - [address] [id number] Deepali Le MD [address] [facility], [address] [place] [address] Advice Only Social History Tobacco [...] Also- is she interested in CF/SMA testing? [facility] phone number left and requested [...] a nurse. She can be reached at: [phone] documented in this encounter Plan of Treatment Not on file documented as of this encounter Visit Diagnoses Not on filedocumented in this encounter Care Teams Management Coordinator Relationship Specialty Start Date End Date None, Provider PCP - General 06/18/19 11/25/19 documented as of this encounter
--- OUTSIDE RECORDS SUMMARY | 2024-06-03 09:12 | XMS_ITS | Encounter Summary ---
Author Organization [facility] Address [address] [place] [address] Care Team Providers Care Digital Designer Name Role Phone None, Provider Primary Care Provider Unavailabl e Encounter Details Date Type Department Care Team (Late st Contact Info) Description 11/20/2019 Prep for Procedure [facility] OBGYN [address] [place], [place] [id number] Pamela Sifuentes MD [address] [place] [phone] Social History Tobacco Use Types Packs/Day [...] filedocumented in this encounter Care Teams Digital Designer Relationship Specialty Start Date End Date None, Provider PCP - General 06/18/19 11/25/19 documented as of this encounter
--- OUTSIDE RECORDS SUMMARY | 2024-06-03 09:12 | XMS_ITS | Encounter Summary ---
Author Organization [facility] Address [address] [place] [address] Care Team Providers Care Metal Bumper Name Role Phone None, Provider Primary Care Provider Unavailabl e Reason for Referral * Consult (3 - 10 Business Days) - Closed Specialty Diagnoses / Procedures Referred By Contac t Referred To Contact Diagnoses in first trimester Andrés Frazier MD Phone: tel: fax: [facility] Obstetrics & Midwifery - [address] [address] Phone: tel: fax: Referral ID Status Reason Start Date Expiration Date V isits Requested Visits Authorized [id number] Closed Specialty Services Required 10/11/2019 1 1 Question Answer Reason for Request: Failed Reason for Visit * Reason Comments Vaginal Bleeding see tcall. Ambulator y into triage, 9.5wks , last night started with bright red bleeding I've changed the panty liner a few times since last night. Followed by [facility] inventory auditor highrisk. Intermittent cramping. Hx 6 miscarriages. Encounter Details Date Type Department Care Team (Late Contact Info) Description 10/11/2019 20:54 EDT - 10/12/2019 0:13 EDT Emergency [facility] Emergency Department - [address] [id number] Kylah Whitaker PA-C 111 [facility], [address] [phone] Alessandro Delgadillo MD 111 [facility], [address] [address] in first trimester (Primary Dx) [...] you for coming to the ED at [facility] for your medical care. Whenever we [...] a failed . 2) Please follow-up with [employer] [facility]. They should call you within 48 hours [...] or Self Fci documented in this encounter Consult Notes * [...] while on meds);no current mood issues. 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 PMedHx: Past Medical History: Diagnosis Date ??? Depression ??? Diabetes mellitus ([facility]) ??? Migraine, unspecified, without mention of intractable [...] file Gets together: Not on file Attends latter day service: Not on file Active member of [...] Last menstrual period: Per discussion with the commissioned police officer, patient is unsure. Per the most recent [...] for nonviable early in the first trimester. [place] Journal of Medicine 369.15 (2013): 3264-7531. ?? Assessment: Pt is a 34 y.o. [...] pursuing a clinic procedure or D&C in [facility] OR. We discussed that if she wants a D&C in the main OR, she will have to be conscious of her NPO status tomorrow for an add on procedure. Alternatively, we can schedule her procedure for Tue. She confirms understanding. Will plan to let DEFENSE ANALYST team and clinic staff know about our [...] with Dr. Lund. Elise Larson MD PGY-3, [employer] [facility] Pager [phone] 10/12/2019 1:22 Cosigned by Mayra Lund MD at 10/12/2019 7:57 EDT Associated attestation - Mayra Lund MD - 10/12/2019 1027 EDT Attestation: I saw and examined the [...] Lund MD PhD MFM Fellow, PGY5 Pager #[phone] Mayra Lund MD 10/12/2019 7:55 documented in this encounter ED Notes * Ann Giang RN - 10/12/2019 0012 EDT Ordered for discharge. Aftercare instructions, follow up, s/s to return reviewed with pt. IV removed, VSS, ambulatory upon discharge. * Ann Giang RN - 10/11/20192231 EDT Ultrasound at bedside. * Alessandro Delgadillo MD - 10/11/2019 914 EDT This patient received an evaluation and medical screening exam for emergent medical conditions at the [facility] on 10/11/2019. This note was created [...] or abdominal pain. Patient called the on-call [facility] [facility] and they instructed her to come here [...] to visualize the itself. Plan to follow [employer] [facility] recommendations with CBC, type and screen, beta quant, transvaginalultrasound. Will consult [facility] with the results and asked further direction. An EKG was obtained and independenly interpreted: NA Laboratory results independently reviewed, significant for: Quant beta 2954, leukocytosis of 17.66, antibody screen positive Imaging obtained was reviewed and independently interpreted: Transvaginal ultrasound demonstrated a failed intrauterine [facility] [facility] was consulted when I was informed of [...] female a failed based on ultrasound, history. [facility] [facility] was consulted who thought that she could be discharged home for definitive management in the clinic or ORtomorrow with D&C or medical expulsion therapy. Patient is very comfortable with this plan, herlabs are reassuring. She was discharged in stable condition with close OB follow-up; the RhoGam is l ikely still active from her last one as antibodies are noted ED Course: (3433) I evaluated the patient. Log Preparer was at bedside discussing the results of [...] for nonviable early in the first trimester. [place] Journal of Medicine 369.15 (2013): 3881-6013. I have personally reviewed the images and [...] Last menstrual period: Per discussion with the commissioned police officer, patient is unsure. Per the most recent [...] Last menstrual period: Per discussion with the commissioned police officer, patient isunsure. Per the most recent OB [...] for nonviablepregnancy early in the first trimester. [place] Journal of Ayjbmkps412.15 (2013): 9588-0125. I have personally reviewed the images and the above interpretation andagree with the findings. Andrés Frazier MD IMG US OB ORDERABLES Penny l Result * ANTIBODY IDENTIFICATION (10/11/2019 21:09 EDT) Antibody Identification Anti-D; patient recd RhIg 10/11/2019 23:41 EDT [facility] Blood VENOUS BLOOD / Unknown Venipuncture / Unknown 10/11/2019 21:09 EDT 10/11/2019 21:16 EDT Elise Charles MD BLOOD BANK TESTS Final Res ult [facility] [address] [facility] [place] [address] * HN LAB DIFF PATH REVIEW - HEME (10/11/2019 21:09 EDT) Pathologist Review Comment 10/12/19 13:41 ?? Elise Hightower MD 10/12/2019 13:41 EDT [facility] Blood VENOUS BLOOD / Unknown Venipuncture / Unknown 10/11/2019 21:09 EDT 10/11/2019 21:13 EDT us Andrés Frazier MD HEMATOLOGY & PF4 ORDERABL ES Final Result [facility] [address] [place] [address] * TYPE AND SCREEN (10/11/2019 21:09 EDT) ABO B 10/11/2019 22:43 EDT [facility] Rh Factor Negative 10/11/2019 22:43 EDT [facility] Antibody Screen Positive 10/11/2019 22:43 EDT [facility] Specimen Expires: 10/14/2019 @ 23:59 10/11/2019 22:43 EDT [facility] Blood VENOUS BLOOD / Unknown Venipuncture / Unknown 10/11/2019 21:09 EDT 10/11/2019 21:16 EDT us Elise Charles MD BLOOD BANK TESTS Edited Re sult - Final Performing Organization Address City/[facility]/ZIP Co de Phone Number [facility] [address] [place] [address] * (ABNORMAL) DIFFERENTIAL, AUTOMATED MANUAL (10/11/2019 21:09 EDT) % Neutrophils 52.6 % 10/11/2019 23:25 EDT [facility] % Lymphocytes 25.0 % 10/11/2019 23:25 EDT [facility] % Atypical Lymphocytes 6.9 % 10/11/2019 23:25 EDT [facility] % Monocytes 8.6 % 10/11/2019 23:25 EDT [facility] % Eosinophils 5.2 % 10/11/2019 23:25 EDT [facility] % Basophils 1.7 % 10/11/2019 23:25 [facility] Absolute Neutrophils 9.29(H) 2.20 - 8.85 K/cmm 10/11/2019 23:25 EDT [facility] Absolute Lymphocytes 4.42(H) 1.09 - 3.30 K/cmm 10/11/2019 23:25 [facility] Absolute Atypical Lymphocytes 1.22 K/cmm 10/11/2019 23:25 T [facility] Absolute Monocytes 1.52(H) 0.10 - 0.80 K/cmm 10/11/2019 23:25 [facility] Absolute Eosinophils 0.92(H) 0.03 - 0.61 K/cmm 10/11/2019 23:25 T [facility] ABS Basophils 0.30(H) 0.01 - 0.11 K/cmm 10/11/2019 23:25 T [facility] Blood VENOUS BLOOD / Unknown Venipuncture / Unknown 10/11/2019 21:09 EDT 10/11/2019 21:13 EDT Andrés Frazier MD HEMATOLOGY & PF4 ORDERABL ES Final Result [facility] [address] [place] [address] * (ABNORMAL) QUANT BETA HCG, (10/11/2019 21:09 EDT) Beta HCG Quant, 2,954(H) <5 mIU/ml 10/11/2019 22:54 EDT [facility] Comment: NOTE: : Negative: Less [...] GAS ORD ERABLES Final Result [facility] [address] [place] [address] * (ABNORMAL) COMPLETE BLOOD COUNT AND DIFFERENTIAL (10/11/2019 21:09 EDT) WBC 17.66(H) 4.00 - 12.40 K/cmm 10/11/2019 22:16 [facility] RBC 4.70 3.86 - 5.04 M/cmm 10/11/2019 22:16 [facility] Hemoglobin 14.4 11.6 - 15.2 gm/dL 10/11/2019 22:16 [facility] HCT 41.9 34.9 - 44.4 % 10/11/2019 22:16 [facility] MCV 89 81 - 98 fl 10/11/2019 22:16 [facility] MCH 30.6 26.7 - 33.3 pg 10/11/2019 22:16 [facility] MCHC 34.4 32.1 - 35.9 gm/dL 10/11/2019 22:16 [facility] RDW-CV 12.1 <14.7 % 10/11/2019 22:16 [facility] RDW-SD 39.5 <50.4 fl 10/11/2019 22:16 [facility] PLT 443(H) 141 - 377 K/cmm 10/11/2019 22:16 [facility] MPV 9.5 9.5 - 12.7 fl 10/11/2019 22:16 [facility] Type of Differential: Manual 10/11/2019 22:16 [facility] Blood VENOUS BLOOD / Unknown Venipuncture / Unknown 10/11/2019 21:09 EDT 10/11/2019 21:13 EDT us Andrés Frazier MD PACKAGES & DNA PROBE ORDE CHANTEL Final Result [facility] [address] [place] [address] * BLOOD BANK HOLD (10/11/2019 21:09 EDT) Hold BB Spec will exp at 23:59, 3 days from collect date 10/11/2019 21:31 EDT [facility] Blood VENOUS BLOOD / Unknown Venipuncture / Unknown 10/11/2019 21:09 EDT 10/11/2019 21:16 EDT us Elise Charles MD BLOOD BANK TESTS Final Res ult [facility] [address] [place] [address] * HOLD SST (10/11/2019 21:09 EDT) Hold Hold 10/11/2019 22:16 EDT [facility] Blood VENOUS BLOOD / Unknown Venipuncture / Unknown 10/11/2019 21:09 EDT 10/11/2019 21:13 EDT us Elise Charles MD LAB INFO SERVICE AND SUPPO RT & PHONE RESULT Final Result [facility] [address] [place] [address] * HOLD LAVENDER TOP (10/11/2019 21:09 EDT) Hold Hold 10/11/2019 22:16 EDT [facility] Blood VENOUS BLOOD / Unknown Venipuncture / Unknown 10/11/2019 21:09 EDT 10/11/2019 21:13 EDT us Elise Charles MD LAB INFO SERVICE AND SUPPO RT & PHONE RESULT Final Result [facility] [address] [place] [address] * HOLD GREEN TOP (10/11/2019 21:09 EDT) Hold Hold 10/11/2019 22:16 EDT [facility] Blood VENOUS BLOOD / Unknown Venipuncture / Unknown 10/11/2019 21:09 EDT 10/11/2019 21:13 EDT us Elise Charles MD LAB INFO SERVICE AND SUPPO RT & PHONE RESULT Final Result [facility] [address] [place] [address] * HOLD BLUE TOP (10/11/2019 21:09 EDT) Hold Hold 10/11/2019 22:16 EDT [facility] Blood VENOUS BLOOD / Unknown Venipuncture / Unknown 10/11/2019 21:09 EDT 10/11/2019 21:13 EDT us Elise Charles MD LAB INFO SERVICE AND SUPPO RT & PHONE RESULT Final Result [facility] [address] [place] [address] documented in this encounter Visit Diagnoses Diagnosis [...] RN) documented in this encounter Care Teams Metal Bumper Relationship Specialty Start Date End Date None, Provider PCP - General 06/18/19 11/25/19 documented as of this encounter
--- OUTSIDE RECORDS SUMMARY | 2024-06-03 09:12 | XMS_ITS | Encounter Summary ---
Author Organization [facility] Address [address] [place] [address] Care Team Providers Care Funeral Professional Name Role Phone None, Provider Primary Care Provider Unavailabl e Reason for Visit * Reason Onset Date Comments 08/30/2019 Encounter Details Date Type Department Care Team (Late st Contact Info) Description 08/30/2019 Telephone [facility] OBGYN Services - [facility] [address] [place] [address] Nilda Parisi RN Social History Tobacco Use [...] on filedocumented in this encounter Care Teams Funeral Professional Relationship Specialty Start Date End Date None, Provider PCP - General 06/18/19 11/25/19 documented as of this encounter
--- OUTSIDE RECORDS SUMMARY | 2024-06-03 09:12 | XMS_ITS | Encounter Summary ---
Author Organization [facility] Address [address] [place] [address] Care Team Providers Care Power Wood Sawyer Name Role Phone None, Provider Primary Care Provider Unavailabl e Encounter Details Date Type Department Care Team (Late st Contact Info) Description 08/31/2019 8:45 EDT Phlebotomy Only [facility] ED Center 2 Phlebotomy [address] [place] [address] Manager Line, Acc Phlebotomy Ectopic , unspecified location, unspecified [...] Quant, 316(H) <5 mIU/ml 08/31/2019 11:17 EDT [facility] Comment: NOTE: : Negative: Less than 5mIU/mL Indeterminant: Between 5 and 25 mIU/mL, recommend repeat testing in 48 hours Positive: Greater than 25 mIU/mL The results of this assay can be falsely lowered due to the consumption of Biotin. Blood 08/31/2019 8:45 EDT 08/31/2019 10:29 EDT us Charu Flynn MD CHEMISTRY & BLOOD GAS OR DERABLES Final Result [facility] [address] [place] [address] documented in this encounter Visit Diagnoses Diagnosis Ectopic , unspecified location, unspecified whether intrauterine present affected by previous ectopic documented in this encounter Care Teams Power Wood Sawyer Relationship Specialty Start Date End Date None, Provider PCP - General 06/18/19 11/25/19 documented as of this encounter
--- OUTSIDE RECORDS SUMMARY | 2024-06-03 09:12 | XMS_ITS | Encounter Summary ---
Author Organization [facility] Address [address] [place] [address] Care Team Providers Care Weathercaster Name Role Phone None, Provider Primary Care Provider Unavailabl e Reason for Visit * ACADEMY EDUCATION DIRECTOR (Routine) - Order Cancelled Specialty Diagnoses / Procedures Referred By Contac t Referred To Contact Diagnoses Less than 8 weeks gestation of Procedures US OB FIRST TRIMESTER (LESS THAN 14 WEEKS) TRANSVAGINAL Jonas Ojeda MD Phone: tel: fax: Referral ID Status Reason Start Date Expiration Date V isits Requested Visits Authorized [id number] Order Cancelled 09/05/2019 1 1 Encounter Details Date Type Department Care Team (Latest Contact Info) Description 09/17/2019 9:09 EDT - 09/18/2019 23:[address] [facility] OBGYN Services - [address] [address] Less than 8 weeks gestation of Discharge [...] corpus luteum: ??collapsed Impression OB Transvaginal - [address] [place] viable intrauterine with dating to be [...] corpus luteum: ??collapsed Impression OB Transvaginal - 12895 [place] viable intrauterine with dating to be [...] corpus luteum: collapsed Impression OB Transvaginal - 113[address] [place] viable intrauterine with dating to be based onultrasound, as above for dating. Follow-up Establish OB care. Comment ========= Results discussed with patient. DATE OF SERVICE: 09/17/2019 Jonas Ojeda MD [facility] OB ORDERABLES Edited Result - Final documented in this encounter Visit Diagnoses Diagnosis Less than 8 weeks gestation of state, incidental documented in this encounter Care Teams Weathercaster Relationship Specialty Start Date End Date None, Provider PCP - General 06/18/19 11/25/19 documented as of this encounter
--- OUTSIDE RECORDS SUMMARY | 2024-06-03 09:12 | XMS_ITS | Encounter Summary ---
Author Organization [facility] Address [address] [place] [address] Care Team Providers Care Service Operator Name Role Phone None, Provider Primary Care Provider Unavailabl e Reason for Visit * Reason Onset Date Comments Surgery Scheduling 11/20/2019 Encounter Details Date Type Department Care Team (Late st Contact Info) Description 11/20/2019 Telephone [facility] OBGYN Services - [facility] [address] [place], [place] [id number] Pamela Sifuentes MD [address] [place] [phone] Surgery Scheduling Social History Tobacco Use [...] filedocumented in this encounter Care Teams Service Operator Relationship Specialty Start Date End Date None, Provider PCP - General 06/18/19 11/25/19 documented as of this encounter
--- OUTSIDE RECORDS SUMMARY | 2024-06-03 09:12 | XMS_ITS | Encounter Summary ---
Author Organization [facility] Address [address] [place] [address] Care Team Providers Care Roll Forger Name Role Phone None, Provider Primary Care Provider Unavailabl e Reason for Visit * Reason Comments Social Work Encounter Details Date Type Department Care Team (Late st Contact Info) Description 10/12/2019 Community Health Team [facility] OBGYN Services - [address] [address] Eryn Diaz Social History Tobacco Use Types [...] Progress Notes * Eryn Diaz - 10/12/2019 6998 EDT SW rec'd call from RN Jordyn [...] step francois, and 3 foster children in [place]. Pt grateful Fermin took the children to [...] the following re care coordination: - Disc [facility] therapeutic group practice in [place] that specializes in working with women who have exp losses - Disc psychiatric and add'l loss support that can be provided via [facility] or Dr. 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 Fermin is a heavy duty diesel mechanic ($15/hour) and still working. SW disc [...] 2019 Time: 11:30 AM With: Eryn Diaz Consulting Solution Manager Location: ph Status: Active documented in this encounter Plan of Treatment Not on file documented as of this encounter Visit Diagnoses Not on filedocumented in this encounter Care Teams Roll Forger Relationship Specialty Start Date End Date None, Provider PCP - General 06/18/19 11/25/19 documented as of this encounter
--- OUTSIDE RECORDS SUMMARY | 2024-06-03 09:12 | XMS_ITS | Encounter Summary ---
Author Organization [facility] Address [address] [place] [address] Care Team Providers Care Supervisor Opening And Picking Name Role Phone None, Provider Primary Care [...] filedocumented in this encounter Care Teams Supervisor Opening And Picking Relationship Specialty Start Date End Date None, Provider PCP - General 06/18/19 11/25/19 documented as of this encounter
--- OUTSIDE RECORDS SUMMARY | 2024-06-03 09:12 | XMS_ITS | Encounter Summary ---
Author Organization [facility] Address [address] [place] [address] Care Team Providers Care Dag Sprayer Name Role Phone None, Provider Primary Care Provider Unavailabl e Reason for Visit * Reason Onset Date Comments Results 08/31/2019 Encounter Details Date Type Department Care Team (Late st Contact Info) Description 08/31/2019 Telephone [facility] OBGYN Services - [facility] [address] [place] [address] Susana Tomlinson, RN Results Social History Tobacco [...] call us with any concerns or questions. SENIOR GRANT WRITER nurse line [phone], or after hours MD line [phone]. documented in this encounter Plan of Treatment Not on file documented as of this encounter Visit Diagnoses Not on filedocumented in this encounter Care Teams Dag Sprayer Relationship Specialty Start Date End Date None, Provider PCP - General 06/18/19 11/25/19 documented as of this encounter
--- OUTSIDE RECORDS SUMMARY | 2024-06-03 09:12 | XMS_ITS | Encounter Summary ---
Author Organization [facility] Address [address] [place] [address] Care Team Providers Care Broadcast Supervisor Name Role Phone None, Provider Primary Care Provider Unavailabl e Reason for Visit * Reason Onset Date Comments Coordination Of Care 09/18/2019 Encounter Details Date Type Department Care Team (Late st Contact Info) Description 09/18/2019 Telephone [facility] OBGYN Services - [facility] [address] [place] [address] Cristy Richmond, RN Coordination Of Care Social [...] filedocumented in this encounter Care Teams Broadcast Supervisor Relationship Specialty Start Date End Date None, Provider PCP - General 06/18/19 11/25/19 documented as of this encounter
--- OUTSIDE RECORDS SUMMARY | 2024-06-03 09:12 | XMS_ITS | Encounter Summary ---
Author Organization [facility] Address [address] [place] [address] Care Team Providers Care Warehouse Handler Name Role Phone None, Provider Primary Care Provider Unavailabl e Reason for Visit * Reason Onset Date Comments Other 10/15/2019 Encounter Details Date Type Department Care Team (Late st Contact Info) Description 10/15/2019 Telephone [facility] OBGYN Services - [facility] [address] [place] [address] Jordyn Wolef, MARCELO Other Social History Tobacco Use Types [...] on filedocumented in this encounter Care Teams Warehouse Handler Relationship Specialty Start Date End Date None, Provider PCP - General 06/18/19 11/25/19 documented as of this encounter
--- OUTSIDE RECORDS SUMMARY | 2024-06-03 09:12 | XMS_ITS | Encounter Summary ---
Author Organization [facility] Address [address] [place] [address] Care Team Providers Care Crew Mess Attendant Name Role Phone None, Provider Primary Care Provider Unavailabl e Encounter Details Date Type Department Care Team (Late st Contact Info) Description 09/02/2019 9:45 EDT Phlebotomy Only [facility] ED [facility] 2 Phlebotomy [address] [place] [address] Electrical Contacts Adjuster, Acc Phlebotomy affected by previous ectopic (Primary [...] Quant, 707(H) <5 mIU/ml 09/02/2019 10:30 EDT [facility] Comment: NOTE: : Negative: [...] & BLOOD GAS OR DERABLES Final Result [facility] [address] [place] [address] documented in this encounter Visit Diagnoses Diagnosis affected by previous ectopic - Primary documented in this encounter Care Teams Crew Mess Attendant Relationship Specialty Start Date End Date None, Provider PCP - General 06/18/19 11/25/19 documented as of this encounter
--- OUTSIDE RECORDS SUMMARY | 2024-06-03 09:12 | XMS_ITS | Encounter Summary ---
Author Organization [facility] Address [address] [place] [address] Care Team Providers Care Instructional Systems Designer Name Role Phone None, Provider Primary Care Provider Unavailabl e Reason for Visit * Reason Onset Date Comments Vaginal Bleeding 10/11/2019 Encounter Details Date Type Department Care Team (Late st Contact Info) Description 10/11/2019 Telephone [facility] OBGYN [address] [place], [place] [id number] Mayra Lund MD [address] [place] [address] Vaginal Bleeding Social History Tobacco [...] Lund MD PhD MFM Fellow, PGY5 Pager #[phone] documented in this encounter Plan of Treatment Not on file documented as of this encounter Visit Diagnoses Not on filedocumented in this encounter Care Teams Instructional Systems Designer Relationship Specialty Start Date End Date None, Provider PCP - General 06/18/19 11/25/19 documented as of this encounter
--- OUTSIDE RECORDS SUMMARY | 2024-06-03 09:12 | XMS_ITS | Encounter Summary ---
Author Organization [facility] Address [address] [place] [address] Care Team Providers Care Spark Plug Tester Name Role Phone None, Provider Primary Care Provider Unavailabl e Reason for Visit * Reason Onset Date Comments Follow-up 10/15/2019 Encounter Details Date Type Department Care Team (Late st Contact Info) Description 10/15/2019 Telephone [facility] OBGYN Services - [facility] [address] [place] [address] Susana Tomlinson, RN Follow-up Social History Tobacco [...] thru this again. She will call the [employer] at [phone] to set up a Control talk to [...] on filedocumented in this encounter Care Teams Spark Plug Tester Relationship Specialty Start Date End Date None, Provider PCP - General 06/18/19 11/25/19 documented as of this encounter
--- OUTSIDE RECORDS SUMMARY | 2024-06-03 09:12 | XMS_ITS | Encounter Summary ---
Author Organization [facility] Address [address] [place] [address] Care Team Providers Care Educational/Development Assistant Name Role Phone None, Provider Primary Care Provider Unavailabl e Reason for Visit * Reason Comments Dental Pain inside lower abscess near gum.bilateral Encounter Details Date Type Department Care Team (Latest Contact Info) Description 10/28/2019 14:26 EDT - 10/28/2019 15:11 EDT Hospital Encounter [facility] - [facility] [address] [place] [address] Monique Gramajo, GUSTAVO [address] [place] [phone] Gingivitis (Primary Dx) Discharge Disposition: Home or [...] sent through Care Everywhere. * Periodontal Conditions (Slovak) documented in this encounter Medications at Time [...] tried any treatment. [facility] but they can't see her until [...] PCR results found No results found for: [id number] HgA1c [ ] 1T pending [ ] [...] teen yrs. ??? Type 2 diabetes mellitus ([facility]) 09/03/2015 Dx approx age 25. Controlled with lifestyle behaviors, wt loss. Had taken lantus in past 80u, Followed by endocrine in [facility]. Stopped few yrs ago until this past month. ??? Anxiety and depression 05/12/2010 Onset teen yrs. Treated with citalopram in approx 2012 - had SI, treated at [facility]. Marijuana prn to help with stress/anxiety sx. [...] 09/04/201515, 08/19. Followed by Dr. López[facility]Affiliates in [facility] Social History Tobacco Use ??? Smoking status: [...] induced documented in this encounter Care Teams Educational/Development Assistant Relationship Specialty Start Date End Date None, Provider PCP - General 06/18/19 11/25/19 documented as of this encounter
--- OUTSIDE RECORDS SUMMARY | 2024-06-03 09:12 | XMS_ITS | Encounter Summary ---
Author Organization [facility] Address [address] [place] [address] Care Team Providers Care Material Handling Technician Name Role Phone None, Provider Primary [...] on filedocumented in this encounter Care Teams Material Handling Technician Relationship Specialty Start Date End Date None, Provider PCP - General 06/18/19 11/25/19 documented as of this encounter
--- OUTSIDE RECORDS SUMMARY | 2024-06-03 09:13 | XMS_ITS | Encounter Summary ---
Author Organization [facility] Address [address] [place] [address] Care Team Providers Care Audio/Visual Manager Name Role Phone Benita Shafer BAKERY MACHINE MECHANIC SUPERVISOR Primary Care Provider [phone] Encounter Details Date Type Department Care Team (Late st Contact Info) Description 10/29/2018 Phlebotomy Only [address] [address] Wash Mill Operator, Outpatient 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 (Primary [...] Preg 2,338(H) <5 mIU/ml 10/29/2018 10:12 EDT [facility] Comment: Reference Range: Negative = <5 Indeterminate = 5-25 recommend repeat in 48 hours. Positive = >25 The results of this assay can be falsely lowered due to the consumption of Biotin. Blood specimen (specimen) BLOOD SPECIMEN / Unknown 10/29/2018 9:20 EDT 10/29/2018 9:38 EDT us Charu Flynn MD CHEMISTRY & BLOOD GAS OR DERABLES Final Result [facility] [address] [place] [address] documented in this encounter Visit Diagnoses Diagnosis 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 - Primary documented in this encounter Care Teams Audio/Visual Manager Relationship Specialty Start Date End Date Benita Shafer NP PCP - General 08/22/18 06/17/19 documented as of this encounter
--- OUTSIDE RECORDS SUMMARY | 2024-06-03 09:13 | XMS_ITS | Encounter Summary ---
Author Organization [facility] Address [address] [place] [address] Care Team Providers Care Senior Quality Engineer Name Role Phone Benita Shafer NP Primary Care Provider [phone] Encounter Details Date Type Department Care Team (Late st Contact Info) Description 10/26/2018 Orders Only [facility] OBGYN Services - [facility] [address] [place], [place] [address] Charu Flynn MD [address] [facility], [address] [place] [address] Social History Tobacco Use Types [...] filedocumented in this encounter Care Teams Senior Quality Engineer Relationship Specialty Start Date End Date Benita Shafer NP PCP - General 08/22/18 06/17/19 documented as of this encounter
--- OUTSIDE RECORDS SUMMARY | 2024-06-03 09:13 | XMS_ITS | Encounter Summary ---
Author Organization [facility] Address [address] [place] [address] Care Team Providers Care Student Advisor Name Role Phone Benita Shafer ART COORDINATOR Primary Care Provider [phone] Reason for Visit * Reason Onset Date Comments Labs Only 11/07/2018 Encounter Details Date Type Department Care Team (Late st Contact Info) Description 11/07/2018 Telephone [facility] OBGYN Services - [address] [address] Michelle Sanchez, MARCELO Labs Only Social History [...] (11/08). Pt states she will go to [facility] lab in evening; advised [...] following MTX administration. Reiterated bleeding precautions and TOOL RENTAL TECHNICIAN triage number if pt has questions/concerns. documented in this encounter Plan of Treatment Not on file documented as of this encounter Results * (ABNORMAL) QUANT BETA HCG, (11/10/2018 8:52 EDT) Quant Beta HCG, Preg 1,117(H) <5 mIU/ml 11/10/2018 9:47 EDT [facility] [...] & BLOOD GAS OR DERABLES Final Result [facility] [address] [place] [address] documented in this encounter Visit Diagnoses Diagnosis Ectopic without intrauterine , unspecified location- Primary documented in this encounter Care Teams Student Advisor Relationship Specialty Start Date End Date Benita Shafer NP PCP - General 08/22/18 06/17/19 documented as of this encounter
--- OUTSIDE RECORDS SUMMARY | 2024-06-03 09:13 | XMS_ITS | Encounter Summary ---
Author Organization [facility] Address [address] [place] [address] Care Team Providers Care Screwdown Operator Name Role Phone Benita Shafer TAFE TEACHER Primary Care Provider [phone] Reason for Visit * Reason Onset Date Comments Results 12/25/2018 Encounter Details Date Type Department Care Team (Late st Contact Info) Description 12/25/2018 Telephone [facility] OBGYN Services - [address] [address] Susana Tomlinson, MARCELO Results Social History Tobacco [...] Encounter - Susana Tomlinson RN - 12/25/2018 0999 EDT Spoke with [facility] lab, Cristy has not has HCG blood draw sine 12/13/18. Letter sent, removed from [employer]. documented in this encounter Plan of Treatment Not on file documented as of this encounter Visit Diagnoses Not on filedocumented in this encounter Care Teams Screwdown Operator Relationship Specialty Start Date End Date Benita Shafer NP PCP - General 08/22/18 06/17/19 documented as of this encounter
--- OUTSIDE RECORDS SUMMARY | 2024-06-03 09:13 | XMS_ITS | Encounter Summary ---
Author Organization [facility] Address [address] [place] [address] Care Team Providers Care Fiscal Assistant Name Role Phone Benita Shafer BUS VAN DRIVER Primary Care Provider [phone] Reason for Visit * Reason Onset Date Comments Labs Only 11/17/2018 Encounter Details Date Type Department Care Team (Late st Contact Info) Description 11/17/2018 Telephone [facility] OBGYN Services - [address] [address] Jordyn Wolfe, RN Labs Only Social History [...] to either [facility] lab or [facility] lab. * Telephone Encounter - Jordyn Wolfe [...] PM. Patient plans to go to the [facility] lab tomorrow morning around 9 AM. She [...] on filedocumented in this encounter Care Teams Fiscal Assistant Relationship Specialty Start Date End Date Benita Shafer NP PCP - General 08/22/18 06/17/19 documented as of this encounter
--- OUTSIDE RECORDS SUMMARY | 2024-06-03 09:13 | XMS_ITS | Encounter Summary ---
Author Organization [facility] Address [address] [place] [address] Care Team Providers Care Aircraft Engineer Name Role Phone Benita Shafer GUSTAVO Primary Care Provider [phone] Encounter Details Date Type Department Care Team (Late st Contact Info) Description 11/03/2018 Orders Only [facility] OBGYN Services - [facility] [address] [place], [place] [id number] Charu Flynn MD [address] [facility], [address] [place] [address] Social History Tobacco Use Types [...] HCG, External 1,652.8 2.39 - 15,000 mIU/mL [facility] Comment:Please see the scann ed report in EPIC for further interpretation. Blood specimen (specimen) 11/01/2018 11:09 EDT us Charu Flynn MD CHEMISTRY & BLOOD GAS OR DERABLES Final Result [facility] documented in this encounter Visit Diagnoses Not on filedocumented in this encounter Care Teams Aircraft Engineer Relationship Specialty Start Date End Date Benita Shafer NP PCP - General 08/22/18 06/17/19 documented as of this encounter
--- OUTSIDE RECORDS SUMMARY | 2024-06-03 09:13 | XMS_ITS | Encounter Summary ---
Author Organization [facility] Address [address] [place] [address] Care Team Providers Care Byproducts Supervisor Name Role Phone Benita Shafer PLANT WORKER Primary Care Provider [phone] Reason for Visit * Reason Onset Date Comments Labs Only 12/12/2018 Encounter Details Date Type Department Care Team (Late st Contact Info) Description 12/12/2018 Telephone [facility] OBGYN Services - [address] [address] Susana Tomlinson, MARCELO Labs Only Social History [...] RN - 12/12/2018 1002 EDT Spoke with [facility] lab: last HCG blood draw @ their [...] on filedocumented in this encounter Care Teams Byproducts Supervisor Relationship Specialty Start Date End Date Benita Shafer NP PCP - General 08/22/18 06/17/19 documented as of this encounter
--- OUTSIDE RECORDS SUMMARY | 2024-06-03 09:13 | XMS_ITS | Encounter Summary ---
Author Organization [facility] Address [address] [place] [address] Care Team Providers Care Striker Out Name Role Phone Benita Shafer GUSTAVO Primary Care Provider [phone] Reason for Referral * Consult (Routine) - Closed Specialty Diagnoses / Procedures Referred By Kit goode Referred To Contact Obstetrics Diagnoses Poorly controlled type 2 diabetes mellitus ([facility]) Tobacco dependence Class II obesity Jonas Ojeda MD Phone: tel: fax: [facility] Obstetrics & Midwifery - [address] [address] Phone: tel: fax: Referral ID Status Reason Start Date Expiration Date V isits Requested Visits Authorized [id number] Closed Specialty Services Required 11/03/2018 1 1 [...] Diagnoses Poorly controlled type 2 diabetes mellitus ([facility]) Recurrent loss Jonas Ojeda MD Phone: tel: fax: [facility] Endocrinology - [address] [address] Phone: tel: fax: Referral ID Status Reason Start Date Expiration Date Visits Requested Visits Authorized [id number] Specialty Report Received Specialty Services Required 11/03/2018 [...] ectopic without intrauterine Charu Flynn MD Phone: tel:[phone] fax:[phone] [facility] Inf[facility] [address] [address] Phone: tel: fax: Referral ID Status Reason Start Date Expiration Date Visits Requested Visits Authorized [id number] Specialty Report Received Specialty Services Required 10/26/2018 1 1 Encounter Details Date Type Department Care Team (Latest Contact Info) Description 11/03/2018 9:00 EDT Office Visit [facility] [address] [address] Jonas Ojeda MD [address] [place] [address] [address] Poorly controlled type 2 diabetes [...] from the patient and cross reviewing her [facility] records for accuracy. Of note, the patient's [...] her PCPs office (Benita Shafer, [place] - [place]) approximately 1 to 2 months ago. Patient reports feeling frustrated with her sugar control and would like a more aggressive management plan. She has never seen an die presser nor has been on an insulin pump, but she isvery interested in pursuing this. Other notable history includes tobacco dependence smoking approximately half a pack to a full pack per day for the last 4 years. She also smokes marijuana 1-2 times daily. Full review of her medical, surgical, medication, allergies, and social history obtained and is accurate and up-to-date in [facility]. OB History Para Term AB Living 7 0 0 0 7 0 SAB TAB Ectopic Multiple Live Births 6 0 1 0 0 # Outcome Date GA Lbr Partha/2nd Weight Sex Delivery Anes PTL Lv 7 Ectopic 10/2018 10w4d ECTOPIC Comments: interstitial diagnosed at [facility]; given MTX 10/26/18 6 SAB 01/2018 6w0d SAB Comments: D&C at [facility] after nonviable on US; had to have repeat D&Bhavna November for retained POCs 5 SAB 06/2017 6w0d SAB Comments: D&C at [facility]; nonviable seen on US; fourth with current 4 SAB 02/2017 6w0d SAB Comments: D&C at [facility]; third with current 3 SAB 08/2015 10w0d SAB Comments: D&C at [facility]; 2nd with current 2 SAB 01/2015 9w0d SAB Comments: D&C at [facility]; first current 1 SAB 2005 6w0d SAB [...] not cover this medication. There is an inli-njw-ihlfxww cream or an oysn-lkc-ytuofnv patch with a lower concentration that is [...] Hives Communicable Disease: None Review of Systems SHAMPOO ASSISTANT ROS: negative Football Coach Review of Systems Objective: BP 118/72 Physical Exam Assessment: 33 y.o. female with recurrent loss most certainly secondary to poorly controlled type 2 diabetes in conjunction with tobacco dependence who presents for consultation. Plan: Cristy was seen today for recurrent miscarriage. Diagnoses and all orders for this visit: Poorly controlled type 2 diabetes mellitus ([facility]) - AMB CONS/FOLLOW UP ENDOCRINOLOGY - AMB [...] MD, PGY5 Fellow Reproductive Endocrinology & Infertility [facility] 11/03/2018 / 9:54 EDIS Attending Addendum: [...] 0.47 - 4.68 uIU/ml 11/03/2018 12:19 EDT [facility] Comment: TSH cascade is not recommended for patients in which pituitary or hypothalamic disorders are suspected. The results of this assay can be falsely lowered due to the consumption of Biotin. Blood specimen (specimen) BLOOD SPECIMEN / Unknown 11/03/2018 10:47 EDT 11/03/2018 11:17 EDT Jonas Ojeda MD CHEMISTRY & BLOOD GAS ORDERA BLES Final Result Performing Organization Address [facility] Co de Phone Number [facility] [address] [place] [address] * PROLACTIN (11/03/2018 10:47 EDT) Prolactin 5.4 ng/ml 11/03/2018 13:09 EDT [facility] Comment: Non-: 2.8-29.2 : 9.7-208.5 Post Menopausal: 1.8-20.3 Blood specimen (specimen) BLOOD SPECIMEN / Unknown 11/03/2018 10:47 EDT 11/03/2018 11:17 EDT Jonas Ojeda MD CHEMISTRY & BLOOD GAS ORDERA BLES Final Result Performing Organization Address [facility] de Phone Number [facility] [address] [place] [address] * HEMOGLOBIN A1C (11/03/2018 10:47 EDT) Hemoglobin A1C 10.9 % 11/03/2018 15:29 EDT [facility] Comment: Reference Range: <5.7% Normal 5.7-6.4% Prediabetes =>6.5% Diagnostic for diabetes (if confirmed) Goals for glycemic control in diabetes ADA 2017 For non adults with diabetes: ?? Target <7.0% For children and adolescents with type 1 diabetes: ?? Target <7.5% More or less stringent targets may be appropriate for individual patients. Est Avg Glucose 266 mg/dl 9 15:29 EDT [facility] Comment: eAG represents the A1c result expressed as average glucose in mg/dl. Blood specimen (specimen) BLOOD SPECIMEN / Unknown 11/03/2018 10:47 EDT 11/03/2018 11:17 EDT us Jonas Ojeda MD CHEMISTRY & BLOOD GAS ORDERA BLES Final Result [facility] [address] [place] [address] documented in this encounter Visit Diagnoses Diagnosis Poorly controlled type 2 diabetes mellitus ([facility] Primary Type II or unspecified type diabetes mellitus without mention of complication, not stated as uncontrolled Recurrent loss Tobacco dependence Tobacco use disorder Class II obesity documented in this encounter Care Teams Striker Out Relationship Specialty Start Date End Date Benita Shafer NP PCP - General 08/22/18 06/17/19 documented as of this encounter
--- OUTSIDE RECORDS SUMMARY | 2024-06-03 09:13 | XMS_ITS | Encounter Summary ---
Author Organization [facility] Address [address] [place] [address] Care Team Providers Care Alterations Tailor Name Role Phone Benita Shafer GUSTAVO Primary Care Provider [phone] Encounter Details Date Type Department Care Team (Late st Contact Info) Description 12/25/2018 Orders Only [facility] OBGYN Services - [address] [id number] Charu Flynn MD [address] [facility], [address] [place] [address] Social History Tobacco Use Types [...] - 15,000 mIU/mL [facility] Comment:Please see the scann ed report in EPIC for further interpretation. Blood specimen (specimen) 12/13/2018 6:27 EDT us Charu Flynn MD CHEMISTRY & BLOOD GAS OR DERABLES Final Result [facility] documented in this encounter Visit Diagnoses Not on filedocumented in this encounter Care Teams Alterations Tailor Relationship Specialty Start Date End Date Benita Shafer NP PCP - General 08/22/18 06/17/19 documented as of this encounter
--- OUTSIDE RECORDS SUMMARY | 2024-06-03 09:13 | XMS_ITS | Encounter Summary ---
Author Organization [facility] Address [address] [place] [address] Care Team Providers Care Infirmary Attendant Name Role Phone Benita Shafer GUSTAVO Primary Care Provider [phone] Encounter Details Date Type Department Care Team (Late st Contact Info) Description 10/26/2018 11:36 EDT - 10/26/2018 23:59 EDT Hospital Encounter [facility] [address] [place] [address] Charu Flynn MD [address] [facility], [address] [place] [address] Discharge Disposition: Home or Self [...] Self Group Home documented in this encounter Plan of Treatment Not on file documented as of this encounter Visit Diagnoses Not on filedocumented in this encounter Care Teams Infirmary Attendant Relationship Specialty Start Date End Date Benita Shafer NP PCP - General 08/22/18 06/17/19 documented as of this encounter
--- OUTSIDE RECORDS SUMMARY | 2024-06-03 09:13 | XMS_ITS | Encounter Summary ---
Author Organization [facility] Address [address] [place] [address] Care Team Providers Care Packing Line Operator Name Role Phone Benita Shafer GUSTAVO Primary Care Provider [phone] Encounter Details Date Type Department Care Team (Late st Contact Info) Description 12/11/2018 Orders Only [facility] OBGYN Services - [facility] [address] [place], [place] [id number] Charu Flynn MD [address] [facility], [address] [place] [address] Social History Tobacco Use Types [...] on filedocumented in this encounter Care Teams Packing Line Operator Relationship Specialty Start Date End Date Benita Shafer NP PCP - General 08/22/18 06/17/19 documented as of this encounter
--- OUTSIDE RECORDS SUMMARY | 2024-06-03 09:13 | XMS_ITS | Encounter Summary ---
Author Organization [facility] Address [address] [place] [address] Care Team Providers Care Painter Railroad Car Name Role Phone Benita Shafer CDL DEDICATED TRUCK DRIVER Primary Care Provider [phone] Reason for Visit * Reason Onset Date Comments Results 11/21/2018 Encounter Details Date Type Department Care Team (Late st Contact Info) Description 11/21/2018 Telephone [facility] OBGYN Services - [address] [address] Jordyn Wolfe, MARCELO Results Social History Tobacco [...] Briscoe RN - 12/04/2018 1114 EDT Called [facility] to see if there were any recent betas, they state pt had been seen in there ED last night for unrelated problem. Asked them if they could run a Beta HCG off of what they collected lastnight 12/03. Called [facility] lab to see if they were able to run the HCG and asked them to fax results to [phone]. They state they will call and fax results. * Telephone Encounter - Lisseth Briscoe RN - 12/01/2018 1155 EDT Call to [facility] lab who states pt has not been [...] you of your upcoming appt 12/08 @ 1951 for a consult. If you are not able to get yourlab work done, or if you cannot keep that 12/08 appt please call [phone] to let us know. Attempted to reach pt 2 more times with no answer, no further msg left. * Telephone Encounter - Jordyn Wolfe RN - 11/30/2018 1031 EDT Call to [facility] lab. Patient has not gone [...] RN - 11/29/2018 0917 EDT Call to [facility] lab. Patient has not gone in for blood work yet. Will call patient. * Telephone Encounter - Jordyn Wolfe RN - 11/28/2018 1517 EDT Call to patient. Left message that the plan is for her to go to the lab for blood work( beta-hCG) retesting which she would be due today. Order is good at [facility] in [facility]. * Telephone Encounter - Jordyn Wolfe RN - 11/28/2018 1121 EDT Call to [facility] lab. Patient has not gone [...] off that day. Patient will go to [facility]. Patient with no questions at this time. documented in this encounter Plan of Treatment Not on file documented as of this encounter Visit Diagnoses Not on filedocumented in this encounter Care Teams Painter Railroad Car Relationship Specialty Start Date End Date Benita Shafer NP PCP - General 08/22/18 06/17/19 documented as of this encounter
--- OUTSIDE RECORDS SUMMARY | 2024-06-03 09:13 | XMS_ITS | Encounter Summary ---
Author Organization [facility] Address [address] [place] [address] Care Team Providers Care Emergency Room Doctor Name Role Phone Benita Shafer GUSTAVO Primary Care Provider [phone] Reason for Visit * Reason Onset Date Comments Appointment Related 12/11/2018 Encounter Details Date Type Department Care Team (Late st Contact Info) Description 12/11/2018 Telephone [facility] Obstetrics & Midwifery - [facility] [address] [place], [place] [id number] Nohemy Sales MD 111 [facility], [address] [place] [address] Appointment Related Social History Tobacco [...] on filedocumented in this encounter Care Teams Emergency Room Doctor Relationship Specialty Start Date End Date Benita Shafer NP PCP - General 08/22/18 06/17/19 documented as of this encounter
--- OUTSIDE RECORDS SUMMARY | 2024-06-03 09:13 | XMS_ITS | Encounter Summary ---
Author Organization [facility] Address [address] [place] [address] Care Team Providers Care Laundry Machine Tender Name Role Phone Benita Shafer GUSTAVO Primary Care Provider [phone] Reason for Visit * Reason Onset Date Comments Appointment Related 03/02/2019 Encounter Details Date Type Department Care Team (Late st Contact Info) Description 03/02/2019 Telephone [facility] Obstetrics & Midwifery - [facility] [address] [place], [place] [id number] Deborah Prakash MD 111 [facility], [address] [place] [address] Appointment Related Social History Tobacco [...] on filedocumented in this encounter Care Teams Laundry Machine Tender Relationship Specialty Start Date End Date Benita Shafer NP PCP - General 08/22/18 06/17/19 documented as of this encounter
--- OUTSIDE RECORDS SUMMARY | 2024-06-03 09:13 | XMS_ITS | Encounter Summary ---
Author Organization [facility] Address [address] [place] [address] Care Team Providers Care Group Home Counselor Name Role Phone Benita Shafer GUSTAVO Primary Care Provider [phone] Encounter Details Date Type Department Care Team (Late st Contact Info) Description 10/26/2018 Phlebotomy Only [address] [address] Monomer Recovery Operator, Outpatient 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 (Primary [...] 26 mg/dl 10/26/2018 13:09 EDT [facility] Blood specimen (specimen) BLOOD SPECIMEN / Unknown 10/26/2018 12:28 EDT 10/26/2018 12:42 EDT Charu Flynn MD CHEMISTRY & BLOOD GAS OR DERABLES Final Result Performing Organization Address [facility] Co de Phone Number [facility] [address] [place] [address] * (ABNORMAL) CREATININE (10/26/2018 12:28 EDT) Creatinine 0.44(L) 0.52 - 1.04 mg/dl 10/26/2018 13:09 EDT [facility] GFR, Calculated 133 >60 ml/min/1.7 3m2 10/26/2018 13:09 EDT [facility] Comment: eGFR calculated using CKD-EPI equation for non Americans. Multiply eGFR by 1.16 for Americans. Blood specimen (specimen) BLOOD SPECIMEN / Unknown 10/26/2018 12:28 EDT 10/26/2018 12:42 EDT us Charu Flynn MD CHEMISTRY & BLOOD GAS OR DERABLES Final Result Performing Organization Address City/[facility]/ZIP Co de Phone Number [facility] [address] [place] [address] * ALT (10/26/2018 12:28 EDT) ALT 22 <53 U/L 10/26/2018 13:09 EDT [facility] Blood specimen (specimen) BLOOD SPECIMEN / Unknown 10/26/2018 12:28 EDT 10/26/2018 12:42 EDT us Charu Flynn MD CHEMISTRY & BLOOD GAS OR DERABLES Final Result Performing Organization Address City/[facility]/ZIP Co de Phone Number [facility] [address] [place] [address] * (ABNORMAL) AST (10/26/2018 12:28 EDT) AST 14(L) 15 - 46 U/L 10/26/2018 13:09 EDT [facility] Blood specimen (specimen) BLOOD SPECIMEN / Unknown 10/26/2018 12:28 EDT 10/26/2018 12:42 EDT us Charu Flynn MD CHEMISTRY & BLOOD GAS OR DERABLES Final Result Performing Organization Address [facility] de Phone Number [facility] [address] [place] [address] * COMPLETE BLOOD COUNT (10/26/2018 12:28 EDT) WBC 11.89 4.0 - 12.4 K/cmm 10/26/2018 13:06 [facility] RBC 4.82 3.86 - 5.04 M/cmm 10/26/2018 13:06 [facility] Hemoglobin 15.0 11.6 - 15.2 gm/dl 10/26/2018 13:06 [facility] HCT 42.5 34.9 - 44.4 % 10/26/2018 13:06 [facility] MCV 88 81 - 98 fl 10/26/2018 13:06 [facility] MCH 31.1 26.7 - 33.3 pg 10/26/2018 13:06 [facility] MCHC 35.3 32.1 - 35.9 gm/dl 10/26/2018 13:06 [facility] RDW-CV 11.9 <14.7 % 10/26/2018 13:06 [facility] RDW-SD 38.2 <50.4 fl 10/26/2018 13:06 EDT [facility] PLT 358 141 - 377 K/cmm 10/26/2018 13:06 EDT [facility] MPV 10.0 9.5 - 12.7 fl 10/26/2018 13:06 EDT [facility] Blood specimen (specimen) BLOOD SPECIMEN / Unknown 10/26/2018 12:28 EDT 10/26/2018 12:42 EDT us Charu Flynn MD HEMATOLOGY & PF4 ORDERAB LES Final Result [facility] [address] [place] [address] documented in this encounter Visit Diagnoses Diagnosis 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 - Primary documented in this encounter Care Teams Group Home Counselor Relationship Specialty Start Date End Date Benita Shafer NP PCP - General 08/22/18 06/17/19 documented as of this encounter
--- OUTSIDE RECORDS SUMMARY | 2024-06-03 09:13 | XMS_ITS | Encounter Summary ---
Author Organization [facility] Address [address] [place] [address] Care Team Providers Care Human Resources File Clerk Name Role Phone Benita Shafer REAL ESTATE SALES SUPERVISOR Primary Care Provider [phone] Encounter Details Date Type Department Care Team (Late st Contact Info) Description 11/01/2018 Orders Only [facility] OBGYN Services - [facility] [address] [place] [address] Lara Serrano RN [address] [place] [address] Right tubal without intrauterine (Primary Dx) Social [...] Primary documented in this encounter Care Teams Human Resources File Clerk Relationship Specialty Start Date End Date Benita Shafer NP PCP - General 08/22/18 06/17/19 documented as of this encounter
--- OUTSIDE RECORDS SUMMARY | 2024-06-03 09:13 | XMS_ITS | Encounter Summary ---
Author Organization [facility] Address [address] [place] [address] Care Team Providers Care Cooling Pipe Inspector Name Role Phone Benita Shafer FACILITIES ASSISTANT Primary Care Provider [phone] Reason for Visit * Reason Comments Sore [...] 8:50 EDT - 11/21/2018 10:09 EDT Emergency [facility] Emergency Department - [address] [address] Josh Coelho, PA-C 111 [facility], [address] [place] [address] Emergency, MD Ekaterina Pharyngitis, unspecified [...] sent through Care Everywhere. * SORE THROAT (BOTSWANAN) * STREP THROAT (BOTSWANAN) documented in this encounter Medications at Time [...] not cover this medication. There is an iawd-axy-herupxf cream or an sjqt-dkb-vrqiytn patch with a lower concentration that is [...] GROUP A (STREPTOCOCCUS PYOGENES) 11/22/2018 13:12 EDT [facility] Specimen of unknown material (specimen) ENTIRE THROAT / Unknown 11/21/2018 9:25 EDT 11/21/2018 10:17 EDT Comment:Specimen submitted o n a flocked swab. us Benita Sol MD MICROBIOLOGY - GENERAL ORDERA BLES Final Result [facility] [address] [place] [address] documented in this encounter Visit Diagnoses Diagnosis [...] RN) documented in this encounter Care Teams Cooling Pipe Inspector Relationship Specialty Start Date End Date Benita Shafer NP PCP - General 08/22/18 06/17/19 documented as of this encounter
--- OUTSIDE RECORDS SUMMARY | 2024-06-03 09:13 | XMS_ITS | Encounter Summary ---
Author Organization [facility] Address [address] [place] [address] Care Team Providers Care Bilingual Case Manager Name Role Phone Benita Shafer HEAD PASTRY CHEF Primary Care Provider [phone] Encounter Details Date Type Department Care Team [...] filedocumented in this encounter Care Teams Bilingual Case Manager Relationship Specialty Start Date End Date Benita Shafer NP PCP - General 08/22/18 06/17/19 documented as of this encounter
--- OUTSIDE RECORDS SUMMARY | 2024-06-03 09:13 | XMS_ITS | Encounter Summary ---
Author Organization [facility] Address [address] [place] [address] Care Team Providers Care Occupational Health Technician Name Role Phone Benita Shafer GUSTAVO Primary Care Provider [phone] Encounter Details Date Type Department Care Team (Latest Contact Info) Description 11/03/2018 10:39 EDT - 11/03/2018 23:59 EDT Hospital Encounter [facility] [address] [place] [address] Jonas Ojeda MD [address] [place] [address] [address] Discharge Disposition: Auto Discharge Social [...] not cover this medication. There is an duhp-mxp-aroxtkq cream or an exln-bjy-kdqlkar patch with a lower concentration that is [...] 97 - 169 ng/dl 11/03/2018 14:02 EDT [facility] BLOOD SPECIMEN / Unknown 11/03/2018 10:47 EDT 11/03/2018 11:17 EDT us Jonas Ojeda MD CHEMISTRY & BLOOD GAS ORDERA BLES Final Result Performing Organization Address [facility] Co de Phone Number [facility] [address] [place] [address] * T4, FREE REFLEX (11/03/2018 10:47 EDT) T4, Free Reflex 1.2 0.8 - 2.2 ng/dl 11/03/2018 13:02 EDT [facility] BLOOD SPECIMEN / Unknown 11/03/2018 10:47 EDT 11/03/2018 11:17 EDT us Jonas Ojeda MD CHEMISTRY & BLOOD GAS ORDERA BLES Final Result Performing Organization Address [facility] de Phone Number [facility] [address] [place] [address] documented in this encounter Visit Diagnoses Not on filedocumented in this encounter Care Teams Occupational Health Technician Relationship Specialty Start Date End Date Benita Shafer NP PCP - General 08/22/18 06/17/19 documented as of this encounter
--- OUTSIDE RECORDS SUMMARY | 2024-06-03 09:13 | XMS_ITS | Encounter Summary ---
Author Organization [facility] Address [address] [place] [address] Care Team Providers Care Lumber Stacker Operator Name Role Phone Benita Shafer RUG INSPECTOR Primary Care Provider [phone] Reason for Visit * Reason Onset Date Comments Labs Only 10/29/2018 Encounter Details Date Type Department Care Team (Late st Contact Info) Description 10/29/2018 Telephone [facility] OBGYN Services - [address] [id number] Deborah Saleh MD [address] [place] [address] Labs Only Social History [...] Encounter - Deborah Saleh MD - 10/29/2018 7498 EDT Left voicemail indicating we received Day 4 HCG s/p MTX. No changes to plan. Next lab draw on Day 7. Deborah Saleh MD 10/29/2018 17:50 Obstetrics & Gynecology, PGY-4 Pager [phone] documented in this encounter Plan of Treatment Not on file documented as of this encounter Visit Diagnoses Diagnosis Ectopic , unspecified location, unspecified whether intrauterine present- Primary documented in this encounter Care Teams Lumber Stacker Operator Relationship Specialty Start Date End Date Benita Shafer NP PCP - General 08/22/18 06/17/19 documented as of this encounter
--- OUTSIDE RECORDS SUMMARY | 2024-06-03 09:13 | XMS_ITS | Encounter Summary ---
Author Organization [facility] Address [address] [place] [address] Care Team Providers Care Community Coordinator For High School Name Role Phone DilanBenita tanner GUSTAVO Primary Care Provider [phone] Reason for Referral * Consult (3 - 10 Business Days) - Closed Specialty Diagnoses / Procedures Referred By [facility] t Referred To Contact Community Health Team / Obstetrics & Gynecology Diagnoses Ectopic , unspecified location, unspecified whether intrauterine present History of recurrent miscarriages Charu Flynn MD Phone: tel: fax: [facility] OBGYN Services - [address] [address] Phone: tel: fax: Referral ID Status Reason Start Date Expiration Date V isits Requested Visits Authorized [id number] Closed Specialty Services Required 11/10/2018 1 1 Question Answer What areas would you like the [facility] to focus on? Women's Health Initiative Comments As we discussed in your visit today, someone will be contacting you from the [facility] Health Team to schedule an appointment with you. If you do not hear from the [facility] within a week please call the [facility] Health Team at [phone]. Reason for Visit * Reason Onset Date Comments Labs Only 11/10/2018 Encounter Details Date Type Department Care Team (Late st Contact Info) Description 11/10/2018 Telephone [facility] OBGYN Services - [address] [address] Susana Busby, RN Labs Only Social History [...] 0850: Spoke with Cristy, she went to [facility] lab last night but it was too late to get blood drawn, currently at [facility] lab. When asked how she [...] for blood work, but may go to [facility] as is closer. I told her if [facility] registration says they do not have an order tell them to call the lab, as they can see [facility] Prism order. When asked if [...] miscarriages documented in this encounter Care Teams Community Coordinator For High School Relationship Specialty Start Date End Date Benita Shafer NP PCP - General 08/22/18 06/17/19 documented as of this encounter
--- OUTSIDE RECORDS SUMMARY | 2024-06-03 09:13 | XMS_ITS | Encounter Summary ---
Author Organization [facility] Address [address] [place] [address] Care Team Providers Care Web Applications Administrator Name Role Phone Benita Shafer BOLT MAKER Primary Care Provider [phone] Reason for Visit * Reason Onset Date Comments Results 12/15/2018 Encounter Details Date Type Department Care Team (Late st Contact Info) Description 12/15/2018 Telephone [facility] OBGYN Services - [address] [address] Susana Tomlinson, MARCELO Results Social History Tobacco [...] to determine if appropriate. Please call the AUTO BODY REPAIR TEACHER nurses at [phone]. When Cristy calls will give details: HCG [...] HCG, External 13.63 2.39 - 15,000 mIU/mL [facility] Blood specimen (specimen) 12/13/2018 6:27 EDT us Charu Flynn MD CHEMISTRY & BLOOD GAS OR DERABLES Final Result [facility] documented in this encounter Visit Diagnoses Not on filedocumented in this encounter Care Teams Web Applications Administrator Relationship Specialty Start Date End Date Benita Shafer NP PCP - General 08/22/18 06/17/19 documented as of this encounter
--- OUTSIDE RECORDS SUMMARY | 2024-06-03 09:13 | XMS_ITS | Encounter Summary ---
Author Organization [facility] Address [address] [place] [address] Care Team Providers Care System Consultant Name Role Phone Benita Shafer GUSTAVO Primary Care Provider [phone] Encounter Details Date Type Department Care Team (Late st Contact Info) Description 11/21/2018 Orders Only [facility] OBGYN Services - [address] [id number] Charu Flynn MD 111 [facility], [address] [place] [address] Social History Tobacco Use Types [...] HCG, External 299.98 2.39 - 15,000 mIU/mL [facility] Comment:Please see the scann ed report in EPIC for further interpretation. Blood specimen (specimen) 11/21/2018 11:23 EDT us Charu Flynn MD CHEMISTRY & BLOOD GAS OR DERABLES Final Result [facility] documented in this encounter Visit Diagnoses Not on filedocumented in this encounter Care Teams System Consultant Relationship Specialty Start Date End Date Benita Shafer NP PCP - General 08/22/18 06/17/19 documented as of this encounter
--- OUTSIDE RECORDS SUMMARY | 2024-06-03 09:13 | XMS_ITS | Encounter Summary ---
Author Organization [facility] Address [address] [place] [address] Care Team Providers Care Pipeman Name Role Phone Benita Shafer RESIDENT INSPECTOR Primary Care Provider [phone] Reason for Visit * Reason Comments Social Work Encounter Details Date Type Department Care Team (Late st Contact Info) Description 01/03/2019 Community Health Team [facility] OBGYN Services - [facility] [address] [place] [address] Eryn Diaz Social History Tobacco Use Types [...] on filedocumented in this encounter Care Teams Pipeman Relationship Specialty Start Date End Date Benita Shafer NP PCP - General 08/22/18 06/17/19 documented as of this encounter
--- OUTSIDE RECORDS SUMMARY | 2024-06-03 09:13 | XMS_ITS | Encounter Summary ---
Author Organization [facility] Address [address] [place] [address] Care Team Providers Care Factory Hand Name Role Phone Benita Shafer GUSTAVO Primary Care Provider [phone] Encounter Details Date Type Department Care Team (Late st Contact Info) Description 11/10/2018 Phlebotomy Only [address] [address] Venetian Blind Cleaner And Repairer, Outpatient Ectopic without intrauterine , unspecified location [...] Preg 1,117(H) <5 mIU/ml 11/10/2018 9:47 EDT [facility] Comment: Reference Range: Negative = <5 Indeterminate = 5-25 recommend repeat in 48 hours. Positive = >25 The results of this assay can be falsely lowered due to the consumption of Biotin. Blood specimen (specimen) BLOOD SPECIMEN / Unknown 11/10/2018 8:52 EDT 11/10/2018 9:00 EDT us Charu Flynn MD CHEMISTRY & BLOOD GAS OR DERABLES Final Result [facility] [address] [place] [address] documented in this encounter Visit Diagnoses Diagnosis Ectopic without intrauterine , unspecified location- Primary documented in this encounter Care Teams Factory Hand Relationship Specialty Start Date End Date Benita Shafer NP PCP - General 08/22/18 06/17/19 documented as of this encounter
--- OUTSIDE RECORDS SUMMARY | 2024-06-03 09:13 | XMS_ITS | Encounter Summary ---
Author Organization [facility] Address [address] [place] [address] Care Team Providers Care Supervisor Roller Printing Name Role Phone Bneita Shafer HAT BLOCKING OPERATOR Primary Care Provider [phone] Reason for Visit * Reason Onset Date Comments Other 11/21/2018 Encounter Details Date Type Department Care Team (Late st Contact Info) Description 11/21/2018 Telephone [facility] OBGYN Services - [address] [address] Jordyn Wolfe, MARCELO Other Social History Tobacco [...] to have her beta-hCG checked today at [facility]. I will ensure that the order is in place. documented in this encounter Plan of Treatment Not on file documented as of this encounter Visit Diagnoses Not on filedocumented in this encounter Care Teams Supervisor Roller Printing Relationship Specialty Start Date End Date Benita Shafer NP PCP - General 08/22/18 06/17/19 documented as of this encounter
--- OUTSIDE RECORDS SUMMARY | 2024-06-03 09:13 | XMS_ITS | Encounter Summary ---
Author Organization [facility] Address [address] [place] [address] Care Team Providers Care Ethnology Teacher Name Role Phone Benita Shafer GUSTAVO Primary Care Provider [phone] Encounter Details Date Type Department Care Team (Late st Contact Info) Description 11/10/2018 8:38 EDT - 11/10/2018 23:59 EDT Hospital Encounter [facility] [address] [place] [address] Charu Flynn MD 111 [facility], [address] [place] [address] Discharge Disposition: Auto Discharge Social [...] not cover this medication. There is an qpzj-xwa-jpxcthp cream or an cuda-nij-qpqlngg patch with a lower concentration that is [...] on filedocumented in this encounter Care Teams Ethnology Teacher Relationship Specialty Start Date End Date Benita Shafer NP PCP - General 08/22/18 06/17/19 documented as of this encounter
--- OUTSIDE RECORDS SUMMARY | 2024-06-03 09:13 | XMS_ITS | Encounter Summary ---
Author Organization [facility] Address [address] [place] [address] Care Team Providers Care Radiology Nurse Name Role Phone Benita Shafer GUSTAVO Primary Care Provider Reason for Visit * Reason Onset Date Comments Labs Only 11/01/2018 Encounter Details Date Type Department Care Team (Late st Contact Info) Description 11/01/2018 Telephone [facility] OBGYN Services - [facility] [address] [place], [place] [address] Charu Flynn MD [address] [facility], Level [address] [place] [address] Labs Only Social History Tobacco [...] RN - 11/01/2018 1606 EDT Spoke with [facility] lab BHCG today = 1652.8. Cristy ANDERSON: [...] to go to ER, can go to [facility] or [facility]. Spoke with Cristy: she denies SOB, but reports arm hurts when she coughs or moves, does not think her arm is swollen, reports had mild intermittent 4/10 cramping over weekend, no VB. Advised as HCG dropped appropriately will not need another MTX. She will proceed to [facility] ER. Spoke with ER triage: gave summary & Cristy ETA 5:30-6pm. * Telephone Encounter - Susana Tomlinson RN - 11/01/2018 1415 EDT Spoke with Radha @ [facility] lab, she could see [facility] lab orders [...] CBC (if needed) cannot be run from [facility]. RTCB to [phone] with quant HCG results. * Telephone Encounter - Miley Wolff - 11/01/2018 1400 EDT Radha from the outpatient lab at [facility] has some questions about the labwork for this patient. documented in this encounter Plan of Treatment Not on file documented as of this encounter Procedures Procedure Name Priority Date/Time Associated Diagnosis Comments QUANT BETA HCG, Routine 11/01/2018 11:09 EDT documented in this encounter Results * QUANT BETA HCG, (11/01/2018 11:09 EDT) HCG, External 1,652.8 2.39 - 1,500 mIU/mL [facility] Blood specimen (specimen) 11/01/2018 11:09 EDT us Charu Flynn MD CHEMISTRY & BLOOD GAS OR DERABLES Final Result [facility] documented in this encounter Visit Diagnoses Not on filedocumented in this encounter Care Teams Radiology Nurse Relationship Specialty Start Date End Date Benita Shafer NP PCP - General 08/22/18 06/17/19 documented as of this encounter
--- OUTSIDE RECORDS SUMMARY | 2024-06-03 09:13 | XMS_ITS | Encounter Summary ---
Author Organization [facility] Address [address] [place] [address] Care Team Providers Care Form Layer Name Role Phone Benita Shafer GUSTAVO Primary Care Provider [phone] Encounter Details Date Type Department Care Team (Late st Contact Info) Description 11/03/2018 Phlebotomy Only [address] [address] Assembler Adjuster, Outpatient Recurrent loss; 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 [...] * HEMOGLOBIN A1C (11/03/2018 10:47 EDT) Pathologist [facility] Hemoglobin A1C 10.9 % 11/03/2018 15:29 EDT [facility] Comment: Reference Range: <5.7% Normal 5.7-6.4% Prediabetes =>6.5% Diagnostic for diabetes (if confirmed) Goals for glycemic control in diabetes ADA 2017 For non adults with diabetes: ?? Target <7.0% For children and adolescents with type 1 diabetes: ?? Target <7.5% More or less stringent targets may be appropriate for individual patients. Est Avg Glucose 266 mg/dl 9 15:29 EDT [facility] Comment: eAG represents the A1c result expressed as average glucose in mg/dl. Blood specimen (specimen) BLOOD SPECIMEN / Unknown 11/03/2018 10:47 EDT 11/03/2018 11:17 EDT us Jonas Ojeda MD CHEMISTRY & BLOOD GAS ORDERA BLES Final Result Performing Organization Address City/[facility]/ZIP Co de Phone Number [facility] [address] [place] [address] * PROLACTIN (11/03/2018 10:47 EDT) Pathologist [facility] Prolactin 5.4 ng/ml 11/03/2018 13:09 EDT [facility] Comment: Non-: 2.8-29.2 : 9.7-208.5 Post Menopausal: 1.8-20.3 Blood specimen (specimen) BLOOD SPECIMEN / Unknown 11/03/2018 10:47 EDT 11/03/2018 11:17 EDT us Jonas Ojeda MD CHEMISTRY & BLOOD GAS ORDERA BLES Final Result [facility] [address] [place] [address] * (ABNORMAL) THYROID CASCADE (11/03/2018 10:47 EDT) [facility] TSH 0.40(L) 0.47 - 4.68 uIU/ml 11/03/2018 12:19 EDT [facility] Comment: TSH cascade is not recommended for patients in which pituitary or hypothalamic disorders are suspected. The results of this assay can be falsely lowered due to the consumption of Biotin. Blood specimen (specimen) BLOOD SPECIMEN / Unknown 11/03/2018 10:47 EDT 11/03/2018 11:17 EDT us Jonas Ojeda MD CHEMISTRY & BLOOD GAS ORDERA BLES Final Result [facility] [address] [place] [address] documented in this encounter Visit Diagnoses Diagnosis Recurrent loss 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 documented in this encounter Care Teams Form Layer Relationship Specialty Start Date End Date Benita Shafer NP PCP - General 08/22/18 06/17/19 documented as of this encounter
--- OUTSIDE RECORDS SUMMARY | 2024-06-03 09:13 | XMS_ITS | Encounter Summary ---
Author Organization [facility] Address [address] [place] [address] Care Team Providers Care Hammer Smith Name Role Phone Benita Shaefr MANAGER MANUFACTURING Primary Care Provider [phone] Reason for Visit * Reason Onset Date Comments Results 11/19/2018 Encounter Details Date Type Department Care Team (Late st Contact Info) Description 11/19/2018 Telephone [facility] OBGYN [address] [place], [place] [id number] Jackie Almeida MD Results Social History Tobacco [...] Encounter - Jackie Almeida MD - 11/19/2018 0918 EDT Telephone Note: Called patient to discuss [...] 11/19/2018 9:33 PGY-1 Obstetrics and Gynecology Pager #[phone] documented in this encounter Plan of Treatment Not on file documented as of this encounter Visit Diagnoses Not on filedocumented in this encounter Care Teams Hammer Smith Relationship Specialty Start Date End Date Benita Shafer NP PCP - General 08/22/18 06/17/19 documented as of this encounter
--- OUTSIDE RECORDS SUMMARY | 2024-06-03 09:13 | XMS_ITS | Encounter Summary ---
Author Organization [facility] Address [address] [place] [address] Care Team Providers Care Traffic Inspector Name Role Phone Benita Shafer NP Primary Care Provider [phone] Reason for Visit * Reason Comments Diabetes * Consult (3 - 10 Business Days) - Specialty Report Received Specialty Diagnoses / Procedures Referred By Kit goode Referred To Contact Endocrinology Diagnoses Poorly controlled type 2 diabetes mellitus ([facility]) Recurrent loss Jonas Ojeda MD Phone: tel: fax: [facility] Endocrinology - [address] [address] Phone: tel: fax: Referral ID Status Reason Start Date Expiration Date Visits Requested Visits Authorized [id number] Specialty Report Received Specialty Services Required 11/03/2018 1 1 Encounter Details Date Type Department Care Team (Latest Contact Info) Description 11/10/2018 9:20 EDT Office Visit [facility] Endocrinology - [facility] [address] [place] [address] Sara Zafar NP [address] [place] [address] [address] [place] [address] Type 2 diabetes mellitus with hyperglycemia, with long-term current use of insulin ([facility]) (Primary Dx) Social History Tobacco Use Types [...] calL with med adjustments RD referral in [place] Take food records BS pre meal 80-120 and 2 hr post <160 non 60-90 pre meal and under 120 Increase your Lantus to 15 units and Novolog 6-10 Units with meals F/U in 10 weeks documented in this encounter Progress Notes * Sara Zafar Np - 11/10/2018 4694 EDT Subjective: Patient ID: Cristy Luo is [...] trimester miscarriages, most recently terminated a at [facility] 11/01/2018. Recurrent loss attributed to to poorly controlled type 2 diabetes in conjunction with tobacco dependence. She saw PLATE CLEANER on 11/03/2018, and was advised to get [...] her PCPs office (Benita Shafer NP - [place]) approximately 1 to 2 months ago . [...] 4 siblings, knows about 2, noDM. 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 Very [...] not cover this medication. There is an gjlb-gyt-cnnhvjt cream or an qoot-etq-wgpmrzb patch with a lower concentration that is [...] to work closely with anRD either at [facility] or here to learn CHO ect, [...] requirements I will calL with med [facility] RD referral in [place] Take food records BS pre meal 80-120 [...] use of insulin ([facility])- Primary documented in this encounter Care Teams Traffic Inspector Relationship Specialty Start Date End Date Benita Shafer NP PCP - General 08/22/18 06/17/19 documented as of this encounter
--- OUTSIDE RECORDS SUMMARY | 2024-06-03 09:13 | XMS_ITS | Encounter Summary ---
Author Organization [facility] Address [address] [place] [address] Care Team Providers Care Hot Blaster Name Role Phone Benita Shafer NP Primary Care Provider [phone] Reason for Visit * Reason Onset Date Comments Problem 10/31/2018 Encounter Details Date Type Department Care Team (Late st Contact Info) Description 10/31/2018 Orders Only [facility] OBGYN Services - [facility] [address] [place] [address] Susana Tomlinson RN 10 weeks gestation of [...] incidental documented in this encounter Care Teams Hot Blaster Relationship Specialty Start Date End Date Benita Shafer NP PCP - General 08/22/18 06/17/19 documented as of this encounter
--- OUTSIDE RECORDS SUMMARY | 2024-06-03 09:13 | XMS_ITS | Encounter Summary ---
Author Organization [facility] Address [address] [place] [address] Care Team Providers Care Hog Feeder Name Role Phone Benita Shafer GUSTAVO Primary Care Provider [phone] Encounter Details Date Type Department Care Team (Late st Contact Info) Description 10/29/2018 9:12 EDT - 10/29/2018 23:59 EDT Hospital Encounter [facility] [address] [place] [address] Charu Flynn MD [address] [facility], [address] [place] [address] Discharge Disposition: Home or Self [...] on filedocumented in this encounter Care Teams Hog Feeder Relationship Specialty Start Date End Date Benita Shafer NP PCP - General 08/22/18 06/17/19 documented as of this encounter
--- OUTSIDE RECORDS SUMMARY | 2024-06-03 09:13 | XMS_ITS | Encounter Summary ---
Author Organization [facility] Address [address] [place] [address] Care Team Providers Care Technical Lead Name Role Phone Benita Shafer CATALYST CONCENTRATION OPERATOR Primary Care Provider [phone] Reason for Visit * Reason Comments Social Work Encounter Details Date Type Department Care Team (Late st Contact Info) Description 12/15/2018 Community Health Team [facility] OBGYN Services - [facility] [address] [place] [address] Kylah Bose Social History Tobacco Use Types [...] - 12/15/2018 0937 EDT Patient referred to [facility] by Dr. Ojeda. Patient did not respond to Admins attempts to schedule initial visit. SW called patient with the goal of scheduling a phone consult. Patient was at work and couldn't talk. SW attempted to text patient with SW contact info and text repeatedly came back as unde liverable. DOTTIE Diaz will check in with patient during her next Security Rover appointment with Dr. Ojeda on 01/03. [facility] Total Time: 5 minutes phone, 5 minutes charting Referral: n/a Follow up: n/a Status: pending documented in this encounter Plan of Treatment Not on file documented as of this encounter Visit Diagnoses Not on filedocumented in this encounter Care Teams Technical Lead Relationship Specialty Start Date End Date Benita Shafer NP PCP - General 08/22/18 06/17/19 documented as of this encounter
--- OUTSIDE RECORDS SUMMARY | 2024-06-03 09:13 | XMS_ITS | Encounter Summary ---
Author Organization [facility] Address [address] [place] [address] Care Team Providers Care Certified Medical Asst Name Role Phone Benita Shafer TIRE WRAPPER Primary Care Provider [phone] Reason for Visit * Reason Onset Date Comments Results 12/13/2018 Encounter Details Date Type Department Care Team (Late st Contact Info) Description 12/13/2018 Telephone [facility] OBGYN Services - [address] [address] Susana Tomlinson, MARCELO Results Social History Tobacco [...] RN - 12/13/2018 1013 EDT Spoke with [facility] lab: Cristy got her blood drawn thsi am, however the machine that is used to process BHCG is not working, they anticipate that it will be fixed tomorrow. documented in this encounter Plan of Treatment Not on file documented as of this encounter Visit Diagnoses Not on filedocumented in this encounter Care Teams Certified Medical Asst Relationship Specialty Start Date End Date Benita Shafer NP PCP - General 08/22/18 06/17/19 documented as of this encounter
--- OUTSIDE RECORDS SUMMARY | 2024-06-03 09:13 | XMS_ITS | Encounter Summary ---
Author Organization [facility] Address [address] [place] [address] Care Team Providers Care Er Manager Name Role Phone Benita Shafer POWER LINE INSTALLER Primary Care Provider [phone] Reason for Visit * Reason Onset Date Comments Labs Only 12/11/2018 Encounter Details Date Type Department Care Team (Late st Contact Info) Description 12/11/2018 Telephone [facility] OBGYN Services - [address] [address] Susana Tomlinson, RN Labs Only Social History [...] done last week from labs drawn at [facility] ER, plan was repeat blood work yesterday 12/10, need to follow this to zero, very important to have this follow-up. Please call the WELCOME HOSTESS nurses at [phone]. documented in this encounter Plan of Treatment Not on file documented as of this encounter Visit Diagnoses Not on filedocumented in this encounter Care Teams Er Manager Relationship Specialty Start Date End Date Benita Shafer NP PCP - General 08/22/18 06/17/19 documented as of this encounter
--- OUTSIDE RECORDS SUMMARY | 2024-06-03 09:13 | XMS_ITS | Encounter Summary ---
Author Organization [facility] Address [address] [place] [address] Care Team Providers Care Ham Passer Name Role Phone Benita Shafer STEREO OPERATOR Primary Care Provider [phone] Reason for Visit * Reason Onset Date Comments Labs Only 11/09/2018 Encounter Details Date Type Department Care Team (Late st Contact Info) Description 11/09/2018 Telephone [facility] OBGYN Services - [address] [address] Susana Tomlinson, RN Labs Only Social History [...] VM, left general message: Nurse calling from [email or web address] clinic, calling to check in & see [...] on filedocumented in this encounter Care Teams Ham Passer Relationship Specialty Start Date End Date Benita Shafer NP PCP - General 08/22/18 06/17/19 documented as of this encounter
--- OUTSIDE RECORDS SUMMARY | 2024-06-03 09:13 | XMS_ITS | Encounter Summary ---
Author Organization [facility] Address [address] [place] [address] Care Team Providers Care It Professional Name Role Phone Benita Shafer WOOD HANDLER Primary Care Provider [phone] Reason for Visit * Reason Onset Date Comments Results 12/04/2018 Encounter Details Date Type Department Care Team (Late st Contact Info) Description 12/04/2018 Orders Only [facility] OBGYN Services - [facility] [address] [place] [address] Lisseth Valdez RN Social History Tobacco Use [...] - 12/04/2018 1407 EDT Received Fax from [facility], results entered, will have faxed document scanned. documented in this encounter Plan of Treatment Not on file documented as of this encounter Procedures Procedure Name Priority Date/Time Associated Diagnosis Comments QUANT BETA HCG, Routine 12/03/2018 documented in this encounter Results * QUANT BETA HCG, (12/03/2018) HCG, External 41.94 mIU/ml [facility] Comment:non- <5 Blood specimen (specimen) 12/03/2018 us Historical Provider CHEMISTRY & BLOOD GAS ORD ERABLES Final Result [facility] documented in this encounter Visit Diagnoses Not on filedocumented in this encounter Care Teams It Professional Relationship Specialty Start Date End Date Benita Shafer NP PCP - General 08/22/18 06/17/19 documented as of this encounter
--- OUTSIDE RECORDS SUMMARY | 2024-06-03 09:13 | XMS_ITS | Encounter Summary ---
Author Organization [facility] Address [address] [place] [address] Care Team Providers Care Shuttleless Loom Weaver Name Role Phone Benita Shafer POLE TESTER Primary Care Provider [phone] Reason for Visit * Reason Onset Date Comments Labs Only 12/20/2018 Encounter Details Date Type Department Care Team (Late st Contact Info) Description 12/20/2018 Telephone [facility] OBGYN Services - [address] [address] Susana Tomlinson, RN Labs Only Social History [...] left general message: nurse calling from [facility], re: bloodwork that was due Wednesday 12/20, spoke with lab last bloodwork was done 12/13, very important to get the blood work done, can change day of blood draw if would be better to get this done on . Please call the [facility] nurses at [phone]. This is the 3rd call to her. * Telephone Encounter - Michelle Sanchez RN - 12/21/2018 0904 EDT LM asking pt to call [facility] triage to f/u. If calls back, will discuss moving blood draw for HCG to Tuesday, as pt is off work on that day. TC to [facility]; confirmed that pt has not come to lab as of 1151. * Telephone Encounter - Jordyn Wolfe RN - 12/20/2018 1653 EDT Call to [facility] lab. Patient has not gone in for blood work as of yet. Will have nurse call her tomorrow to follow-up if she has not gone in today. * Telephone Encounter - Susana Tomlinson RN - 12/20/2018 1326 EDT Spoke with lab @ [facility]: Cristy has not yet come in today for BHCG lab draw. documented in this encounter Plan of Treatment Not on file documented as of this encounter Visit Diagnoses Not on filedocumented in this encounter Care Teams Shuttleless Loom Weaver Relationship Specialty Start Date End Date Benita Shafer NP PCP - General 08/22/18 06/17/19 documented as of this encounter
--- OUTSIDE RECORDS SUMMARY | 2024-06-03 09:13 | XMS_ITS | Encounter Summary ---
Author Organization [facility] Address [address] [place] [address] Care Team Providers Care Tree Trimmer Helper Name Role Phone Benita Shafer GAS PLANT OPERATOR Primary Care Provider [phone] Reason for Visit * Reason Comments Arm Pain pt to ed c/o right s houlder pain that radiates down to right hand. pt states pain started last while walking. distal CSMT intact. denies trauma. Encounter Details Date Type Department Care Team (Late st Contact Info) Description 11/01/2018 17:45 EDT - 11/01/2018 21:27 EDT Emergency [facility] Emergency Department - Main [place] [address] [place] [id number] Kevan Gr MD [address] [place] [id number] Emergency, MD Ekaterina Arm pain, diffuse, right [...] pain-R07.89[ICD-10-CM] F17.210 Nicotine dependence, cigarettes, uncomplicated-F17.210[ICD-10-CM] Z79.84 alf (current) use of oral hypoglycemic drugs-Z79.84[ICD-10-CM] Z79.4 alf (current) use of insulin-Z79.4[ICD-10-CM] Z88.6 Allergy status [...] not cover this medication. There is an biic-azw-obkfhuy cream or an zqox-fwi-zvirhsa patch with a lower concentration that is [...] not cover this medication. There is an rkcq-jiz-zkeeckn cream or an ozfn-atu-sgcxhjo patch with a lower concentration that is [...] at the [facility] on 11/01/2018 Scribe attestation: This documentation [...] to verify the correct patient, procedure, equipment, help desk support specialist and site/side marked as required. [...] 17.33(H) 4.0 - 12.4 K/cmm 11/01/2018 20:22 [facility] RBC 4.63 3.86 - 5.04 M/cmm 11/01/2018 20:22 [facility] Hemoglobin 14.2 11.6 - 15.2 gm/dl 11/01/2018 20:22 [facility] HCT 41.0 34.9 - 44.4 % 11/01/2018 20:22 [facility] MCV 89 81 - 98 fl 11/01/2018 20:22 [facility] MCH 30.7 26.7 - 33.3 pg 11/01/2018 20:22 [facility] MCHC 34.6 32.1 - 35.9 gm/dl 11/01/2018 20:22 [facility] RDW-CV 12.1 <14.7 % 11/01/2018 20:22 [facility] RDW-SD 38.3 <50.4 fl 11/01/2018 20:22 [facility] PLT 351 141 - 377 K/cmm 11/01/2018 20:22 [facility] MPV 9.8 9.5 - 12.7 fl 11/01/2018 20:22 [facility] Neutrophils 59.3 % 11/01/2018 20:49 [facility] Lymphocytes 32.7 % 11/01/2018 20:49 [facility] Monocytes 4.4 % 11/01/2018 20:49 [facility] Eosinophils 2.7 % 11/01/2018 20:49 [facility] % Atyp Lymphs 0.9 % 11/01/2018 20:49 [facility] ABS Neutrophils 10.28(H) 2.20 - 8.85 K/cmm 11/01/2018 20:49 [facility] ABS Lymphs 5.67(H) 1.09 - 3.30 K/[facility] 11/01/2018 20:49 [facility] ABS Monocytes 0.76 0.1 - 0.8 K/[facility] 11/01/2018 20:49 [facility] ABS Eosinophils 0.47 0.03 - 0.61 K/[facility] 11/01/2018 20:49 [facility] ABS Atyp Lymphs 0.16 K/[facility] 9 20:49 [facility] Type of Diff: Manual 11/01/2018 20:49 [facility] Blood specimen (specimen) BLOOD SPECIMEN / Unknown 11/01/2018 19:38 EDT 11/01/2018 19:55 EDT Kevan Gr MD PACKAGES & DNA PROBE ORDERABLES Final Result [facility] [address] [place] [address] * (ABNORMAL) BASIC METABOLIC PANEL (BMP) (11/01/2018 19:38 EDT) Sodium 136 136 - 145 mEq/L 11/01/2018 20:16 [facility] Potassium 4.1 3.5 - 5.0 mEq/L 11/01/2018 20:16 [facility] Chloride 99 96 - 110 mEq/L 11/01/2018 20:16 [facility] CO2 27 22 - 32 mEq/L 11/01/2018 20:16 [facility] BUN 10 10 - 26 mg/dl 11/01/2018 20:16 [facility] Creatinine 0.39(L) 0.52 - 1.04 mg/dl 11/01/2018 20:16 [facility] GFR, Calculated 138 >60 ml/min/1.7 3m2 11/01/2018 20:16 [facility] Comment: eGFR calculated using CKD-EPI equation for non Americans. Multiply eGFR by 1.16 for Americans. Calcium 10.2 8.5 - 10.5 mg/dl 11/01/2018 20:16 EDT [facility] Calculated Calcium 10.2 8.5 - 10.5 mg/dl 11/01/2018 20:16 EDT [facility] Glucose, Serum 225(H) 70 - 100 mg/dl 11/01/2018 20:16 EDT [facility] Fasting? Unknown 11/01/2018 19:56 EDT [facility] Blood specimen (specimen) BLOOD SPECIMEN / Unknown 11/01/2018 19:38 EDT 11/01/2018 19:55 EDT Kevan Gr MD CHEMISTRY & BLOOD GAS ORDERABLES Final Result Performing Organization Address City/[facility]/ZIP Co de Phone Number [facility] [address] [place] [address] * CK (11/01/2018 19:38 EDT) CK 42 30 - 135 U/L 11/01/2018 20:16 EDT [facility] Blood specimen (specimen) BLOOD SPECIMEN / Unknown 11/01/2018 19:38 EDT 11/01/2018 19:55 EDT Kevan Gr MD CHEMISTRY & BLOOD GAS ORDERABLES Final Result Performing Organization Address City/[facility] Co de Phone Number [facility] [address] [place] [address] * Nerve Block (11/01/2018 19:09 EDT) Narrative [facility] EKG - 11/01/2018 19:09 EDT Kevan [...] to verify the correct patient, procedure, equipment, help desk support specialist and site/side marked as required. [...] MD PROCEDURE/MINOR SURGICAL ORDERAB LES Final Result [facility] EKG documented in this encounter Visit [...] RN) documented in this encounter Care Teams Tree Trimmer Helper Relationship Specialty Start Date End Date Benita Shafer NP PCP - General 08/22/18 06/17/19 documented as of this encounter
--- OUTSIDE RECORDS SUMMARY | 2024-06-03 09:13 | XMS_ITS | Encounter Summary ---
Author Organization [facility] Address [address] [place] [address] Care Team Providers Care Fur Sorter Name Role Phone Benita Shafer MARKETING SUMMER INTERN Primary Care Provider [phone] Reason for Visit * Reason Onset Date Comments Results 12/04/2018 Encounter Details Date Type Department Care Team (Late st Contact Info) Description 12/04/2018 Telephone [facility] OBGYN Services - [address] [address] Lisseth Valdez, MARCELO Results Social History Tobacco [...] w/ dr beckwith. Please call us at [phone]. LVM for Cristy stating this is the nurse again, I forgot to tell you that based on your new result we would like for you to repeat your blood work on 12/10. documented in this encounter Plan of Treatment Not on file documented as of this encounter Visit Diagnoses Not on filedocumented in this encounter Care Teams Fur Sorter Relationship Specialty Start Date End Date Benita Shafer NP PCP - General 08/22/18 06/17/19 documented as of this encounter
--- OUTSIDE RECORDS SUMMARY | 2024-06-03 09:14 | XMS_ITS | Encounter Summary ---
Author Organization [facility] Address [address] [place] [address] Care Team Providers Care Brush Stainer Name Role Phone None, Provider Primary Care [...] 20:10 EDT - 09/28/2016 21:29 EDT Emergency [facility] Emergency Department - Main [address] [address] Benita Sol MD [address] [place] [address], [address] [place] [phone] Emergency, MD Ekaterina Acute bilateral low back [...] F17.210 Nicotine dependence, cigarettes, uncomplicated-F17.210[ICD-10-CM] Z79.84 terminal block assembler (current) use of oral hypoglycemic drugs-Z79.84[ICD-10-CM] Z88.6 Allergy status to analgesic agent status-Z88.6[ICD-10-CM] documented in this encounter Discharge Instructions * Discharge Instructions* Benita Sol MD - 09/28/2016 21:09 EDT Take Flexeril, one tablet before bed for muscle spasms/back pain as needed. * Attachments The following attachments cannot be sent through Care Everywhere. * LUMBAR PAIN: ACUTE: EXERCISES (ROMANSH) documented in this encounter Medications at Time [...] back) documented in this encounter Care Teams Brush Stainer Relationship Specialty Start Date End Date None, Provider PCP - General 03/08/16 08/21/18 documented as of this encounter
--- OUTSIDE RECORDS SUMMARY | 2024-06-03 09:14 | XMS_ITS | Encounter Summary ---
Author Organization [facility] Address [address] [place] [address] Care Team Providers Care Psychometric Examiner Name Role Phone Benita Shafer COOLER ROOM WORKER Primary Care Provider [phone] Reason for Visit * Reason Onset Date Comments Follow-up 09/06/2018 Encounter Details Date Type Department Care Team (Late st Contact Info) Description 09/06/2018 Telephone [facility] - [address] [address] Valencia Davila RN [address] [address] Follow-up Social History Tobacco Use Types Packs/Day [...] to follow up with her Opthalmologist in [facility], Per Dr Blanco we would like to start patient on eye drops and she will see Opthalmology tomorrow, attempted to reach patient on both numbers listed, left generic voicemail on patientscell, as we had discussed I would be calling her with any further information, requested she returnmy call [facility]. Left message on Opthalmology voicemail Dr Srikanth Cruz, Requesting to ask patient to call this clinic for further instructions if they here from her documented in this encounter Plan of Treatment Not on file documented as of this encounter Visit Diagnoses Not on filedocumented in this encounter Care Teams Psychometric Examiner Relationship Specialty Start Date End Date Benita Shafer NP PCP - General 08/22/18 06/17/19 documented as of this encounter
--- OUTSIDE RECORDS SUMMARY | 2024-06-03 09:14 | XMS_ITS | Encounter Summary ---
Author Organization [facility] Address [address] [place] [address] Care Team Providers Care Clinical Trials Nurse Name Role Phone None, Provider Primary Care Provider Unavailabl e Reason for Visit * Reason Onset Date Comments Eye Problem 07/29/2016 Encounter Details Date Type Department Care Team (Late st Contact Info) Description 07/29/2016 Telephone [facility] Ophthalmology - [address] [address] Unknown, Provider, Eye Problem Social History Tobacco [...] he will see pt tomorrow. Catherine Alonzo ([facility]) calling pt to schedule. * Telephone [...] to you in the next two hours? [phone], can leavea message (VERIFY THE PHONE NUMBERS REGARDLESS OF WHAT IS IN THE SYSTEM.) (Please remember to ask the MD what he/she needs from the paper chart.) * Telephone Encounter - Catherine Donald - 07/29/2016 8142 EST Pt was seen at ed. documented in this encounter Plan of Treatment Not on file documented as of this encounter Visit Diagnoses Not on filedocumented in this encounter Care Teams Clinical Trials Nurse Relationship Specialty Start Date End Date None, Provider PCP - General 03/08/16 08/21/18 documented as of this encounter
--- OUTSIDE RECORDS SUMMARY | 2024-06-03 09:14 | XMS_ITS | Encounter Summary ---
Author Organization [facility] Address [address] [place] [address] Care Team Providers Care Diesel Stationary Engineer Name Role Phone Nimisha Clifton INTEGRATION SOLUTION ARCHITECT Primary Care Provider [phone] Reason for Visit * Reason Comments New Patient Visit Otalgia pain off and on for years but hurts consistantly since Tuesday Encounter Details Date Type Department Care Team (Late st Contact Info) Description 09/03/2015 11:00 EDT Office Visit [facility] Adult Primary Care - [address] [phone] Nimisha Clifton, GUSTAVO [address] [phone] Type 2 diabetes mellitus without complication (CMS-HCC) [...] over the past years. Originally from the [facility]. Presently lives [facility] with her boyfriend/significant other and his 4-year-old [...] citalopram and develop suicidal ideation-she went to [place] for a short stay for withdrawal from [...] years until this past month when her FACTORY LAY OUT ENGINEER placed her back on it in early [...] unknown. She follows with Dr. López/affiliates in FACTORY LAY OUT ENGINEER for her FACTORY LAY OUT ENGINEER care. She had a D&C done earlier [...] Hemoglobin A1c; Future Tachycardia Orders: - Thyroid [place]; Future Depression, unspecified depression type Orders: - Thyroid [place]; Future Other orders - insulin glargine (LANTUS [...] 0.55 - 4.78 uIU/ml 09/03/2015 18:19 EDT [facility] Comment: TSH cascade is not recommended for patients in which pituitary or hypothalamic disorders are suspected. Blood specimen (specimen) BLOOD SPECIMEN / Unknown 09/03/2015 12:33 EDT 09/03/2015 13:37 EDT us Nimisha Clifton INTEGRATION SOLUTION ARCHITECT CHEMISTRY & BLOOD GAS ORD ERABLES Final Result [facility] [address] [place] [address] * HEMOGLOBIN A1C (09/03/2015 12:33 EDT) Hemoglobin A1C 8.8 % 09/03/2015 14:56 EDT [facility] [...] Est Avg Glucose 206 mg/dl 6 14:56 [facility] Comment: eAG represents the A1c result expressed as average glucose in mg/dl. Blood specimen (specimen) BLOOD SPECIMEN / Unknown 09/03/2015 12:33 EDT 09/03/2015 13:37 EDT us Nimisha Clifton NP CHEMISTRY & BLOOD GAS ORD ERABLES Final Result [facility] [address] [place] [address] * (ABNORMAL) COMPREHENSIVE METABOLIC PANEL (CMP) (09/03/2015 12:33 EDT) Potassium 4.1 3.5 - 5.0 mEq/L 09/03/2015 14:15 [facility] Sodium 141 136 - 145 mEq/L 09/03/2015 14:15 [facility] Chloride 101 96 - 110 mEq/L 09/03/2015 14:15 [facility] CO2 29 24 - 32 mEq/L 09/03/2015 14:15 [facility] Total Alkaline Phosphatase 84 38 - 126 U/L 09/03/2015 14:15 [facility] Bilirubin, Total <0.5 <1.4 mg/dl 09/03/19 16 14:15 [facility] AST 19 15 - 46 U/L 09/03/2015 14:15 [facility] ALT 33 <53 U/L 09/03/2015 14:15 [facility] Albumin 3.9 3.4 - 4.9 g/dl 09/03/2015 14:15 [facility] Total Protein 6.6 6.3 - 8.2 g/dl 09/03/2015 14:15 [facility] Creatinine 0.48(L) 0.52 - 1.04 mg/dl 09/03/2015 14:15 [facility] GFR, Calculated 132 >60 ml/min/1.7 3m2 09/03/2015 14:15 [facility] Comment: eGFR calculated using CKD-EPI equation for non Americans. Multiply eGFR by 1.16 for Americans. BUN 11 10 - 26 mg/dl 09/03/2015 14:15 [facility] Calcium 9.8 8.5 - 10.5 mg/dl 09/03/2015 14:15 [facility] Calculated Calcium 10.3 8.5 - 10.5 mg/dl 09/03/2015 14:15 [facility] Glucose, Serum 205(H) 70 - 100 mg/dl 09/03/2015 14:15 [facility] Fasting? No 09/03/2015 12:23 [facility] Blood specimen (specimen) BLOOD SPECIMEN / Unknown 09/03/2015 12:33 EDT 09/03/2015 13:37 EDT Nimisha Clifton NP CHEMISTRY & BLOOD GAS ORD ERABLES Final Result [facility] [address] [place] [address] documented in this encounter Visit Diagnoses Diagnosis Type 2 diabetes mellitus without complication ([facility])- Primary Type II or unspecified type diabetes [...] 03/08/2016 added in this encounter Care Teams Diesel Stationary Engineer Relationship Specialty Start Date End Date Nimisha Clifton NP 1 [facility] [address] [place] [phone] PCP - General 08/28/15 03/07/16 documented as of this encounter
--- OUTSIDE RECORDS SUMMARY | 2024-06-03 09:14 | XMS_ITS | Encounter Summary ---
Author Organization [facility] Address [address] [place] [address] Care Team Providers Care Electric Welder Name Role Phone Benita Shafer GUSTAVO Primary Care Provider [phone] Reason for Visit * Reason Onset Date Comments Results 10/24/2018 Encounter Details Date Type Department Care Team (Late st Contact Info) Description 10/24/2018 Telephone [facility] OBGYN Services - [address] [phone] Ana Coronado MD [address] [facility], [address] [place] [phone] Results Social History Tobacco Use [...] - Ana Coronado MD, MD - 10/24/2018 5542 EDT Patient called with hCG level and [...] Preg 1,531(H) <5 mIU/ml 10/26/2018 9:52 EDT [facility] Comment: Reference Range: Negative = <5 Indeterminate = 5-25 recommend repeat in 48 hours. Positive = >25 The results of this assay can be falsely lowered due to the consumption of Biotin. Blood specimen (specimen) BLOOD SPECIMEN / Unknown 10/26/2018 8:48 EDT 10/26/2018 9:00 EDT Ana Coronado MD CHEMISTRY & BLOOD GAS [facility] Final Result [facility] [address] [place] [address] documented in this encounter Visit Diagnoses Diagnosis Complication of in first trimester- Primary documented in this encounter Care Teams Electric Welder Relationship Specialty Start Date End Date Benita Shafer NP PCP - General 08/22/18 06/17/19 documented as of this encounter
--- OUTSIDE RECORDS SUMMARY | 2024-06-03 09:14 | XMS_ITS | Encounter Summary ---
Author Organization [facility] Address [address] [place] [id number] Care Team Providers Care Principal Web Developer Name Role Phone None, Provider Primary Care Provider Unavailabl e Reason for Visit * Reason Comments Abscess Encounter Details Date Type Department Care Team (Latest Contact Info) Description 07/15/2016 11:37 EST - 07/15/2016 14:25 EST Hospital Encounter [facility] - [address] [id number] Moy Marquez MD [address] [place] [phone] Unknown, Provider, Perianal abscess (Primary Dx); Nausea and vomiting, intractability of vomiting not specified, unspecified vomiting type; Type 2 diabetes mellitus with complication, unspecified residential insulin use status ([facility]) Discharge Disposition: Home or [...] 14:19 EST For your perianal abscess, take [id number] Tylenol (acetaminophen) as needed for pain. Keep [...] sent through Care Everywhere. * PERIRECTAL ABSCESS (MARSHALL[place]) documented in this encounter Medications at Time [...] into following up at the [facility]. Certainly follow up acutely as needed otherwise. [...] UA Clear Final Bilirubin Neg Final Specific [place] 1.015 Final pH 5.5 Final Urobilinogen 0.2 Final Nitrite Neg Final Tech ID [id number] Final POCT GLUCOSE - Normal Glucose, POC [...] care doctor; recommenda tion for [facility] was made which the patient was amenable to. Plan: Perirectal abscess - s/p I&D with no purulence expressed - CBC and Diff Diabetes, type 2 - Hemoglobin A1C - BMP - metformin 500 mg BID Follow-up with [facility] DISPOSITION: Discharged The patient's pain was managed to an adequate level weighing risk vs. benefit of further medications. Upon departure from the Emergency Department, the patient's pain was 2 on a zero to ten scale. Condition at departure from the Emergency Department: Stable PCP: Provider None [facility] 07/15/2016 14:10 No flowsheet data found. Callum Vicente MD, 07/15/2016 14:35 Family Medicine PGY 1, Page #[phone] Cosigned by Moy Marquez MD at 07/15/2016 21:17 EST documented in this encounter Plan of Treatment Not on file documented as of this encounter Procedures Procedure Name Priority Date/Time Associated Diagnosis Comments HEMOGLOBIN A1C STAT 07/15/2016 13:18 EST Type 2 diabetes mellitus with complication, unspecified residential insulin use status ([facility]) COMPLETE BLOOD COUNT AND DIFFERENTIAL STAT 07/15/2016 13:11 EST Type 2 diabetes mellitus with complication, unspecified terminal manager insulin use status ([facility]) BASIC METABOLIC PANEL (BMP) STAT 07/15/2016 13:11 EST Nausea and vomiting, intractability of vomiting not specified, unspecified vomiting type POCT GLUCOSE, INTERFACED STAT 07/15/2016 12:28 EST Type 2 diabetes mellitus with complication, unspecified residential insulin use status ([facility]) URINE SEDIMENT (MICRO) WITHOUT REFLEX TO CULTURE [...] Hemoglobin A1C 11.2 % 07/16/2016 11:24 EST [facility] Comment: Reference [...] Avg Glucose 275 mg/dl 7 11:24 EST [facility] Comment: eAG represents the A1c result expressed as average glucose in mg/dl. Blood specimen (specimen) BLOOD SPECIMEN / Unknown 07/15/2016 13:18 EST 07/15/2016 13:28 EST us Callum Vicente MD MPH CHEMISTRY & BLOOD GAS ORD ERABLES Final Result [facility] [address] [place] [address] * (ABNORMAL) HEMAGRAM AND DIFFERENTIAL (07/15/2016 13:11 EST) WBC 12.30 4.0 - 12.4 K/cmm 07/15/2016 13:30 [facility] RBC 4.88 3.86 - 5.04 M/cmm 07/15/2016 13:30 [facility] Hemoglobin 15.2 11.6 - 15.2 gm/dl 07/15/2016 13:30 [facility] HCT 42.1 34.9 - 44.4 % 07/15/2016 13:30 [facility] MCV 86 81 - 98 fl 07/15/2016 13:30 [facility] MCH 31.1 26.7 - 33.3 pg 07/15/2016 13:30 [facility] MCHC 36.1(H) 32.1 - 35.9 gm/dl 07/15/2016 13:30 [facility] RDW-CV 12.5 11.7 - 14.6 % 07/15/2016 13:30 [facility] RDW-SD 38.5 37.6 - 50.3 fl 07/15/2016 13:30 [facility] PLT 331 141 - 377 K/cmm 07/15/2016 13:30 [facility] MPV 9.5 9.5 - 12.7 fl 07/15/2016 13:30 [facility] % Neutrophils 72.6 % 07/15/2016 13:30 [facility] % Lymphocytes 18.7 % 07/15/2016 13:30 [facility] % Monocytes 7.8 % 07/15/2016 13:30 [facility] % Eosinophils 0.7 % 07/15/2016 13:30 [facility] % Basophils 0.2 % 07/15/2016 13:30 [facility] ABS Neutrophils 8.93(H) 2.20 - 8.85 K/cmm 07/15/2016 13:30 [facility] ABS Lymphs 2.30 1.09 - 3.30 K/cmm 07/15/2016 13:30 [facility] ABS Monocytes 0.96(H) 0.1 - 0.8 K/cmm 07/15/2016 13:30 [facility] ABS Eosinophils 0.09 0.03 - 0.61 K/cmm 07/15/2016 13:30 [facility] ABS Basophils 0.02 0.01 - 0.11 K/cmm 07/15/2016 13:30 [facility] Type of Diff: Automated 07/15/2016 13:30 [facility] Comment:[facility] [place] [place] Blood specimen (specimen) BLOOD SPECIMEN / Unknown 07/15/2016 13:11 EST 07/15/2016 13:27 EST us Callum Vicente MD MPH PACKAGES & DNA PROBE MURPHYE CHANTEL Final Result [facility] [address] [place] [address] * (ABNORMAL) BASIC METABOLIC PANEL (07/15/2016 13:11 EST) Sodium 138 136 - 145 mEq/L 07/15/2016 14:01 [facility] Potassium 4.2 3.5 - 5.0 mEq/L 07/15/2016 14:01 [facility] Chloride 101 96 - 110 mEq/L 07/15/2016 14:01 [facility] CO2 27 22 - 32 mEq/L 07/15/2016 14:01 [facility] Comment:Note new reference r masoud 03/23/16 BUN 9(L) 10 - 26 mg/dl 07/15/2016 14:01 [facility] Creatinine 0.40(L) 0.52 - 1.04 mg/dl 07/15/2016 14:01 [facility] GFR, Calculated 139 >60 ml/min/1.7 3m2 07/15/2016 14:01 [facility] Comment: eGFR calculated using CKD-EPI equation for non Americans. Multiply eGFR by 1.16 for Americans. Calcium 9.2 8.5 - 10.5 mg/dl 07/15/2016 14:01 [facility] Calculated Calcium 9.4 8.5 - 10.5 mg/dl 07/15/2016 14:01 [facility] Comment: Note new formula for calculation in use 03/10/2016 Glucose, Serum 246(H) 70 - 100 mg/dl 07/15/2016 14:01 [facility] Fasting? Unknown 07/15/2016 13:27 [facility] Comment:Performed at [place], [place] Blood specimen (specimen) BLOOD SPECIMEN / Unknown 07/15/2016 13:11 EST 07/15/2016 13:27 EST Callum Vicente MD MPH CHEMISTRY & BLOOD GAS ORD ERABLES Final Result [facility] [address] [place] [address] * (ABNORMAL) POCT GLUCOSE (07/15/2016 12:28 EST) Glucose, POC 221(A) 70 - 100 mg/dL [facility] Blood specimen (specimen) 07/15/2016 12:28 EST us Callum Vicente MD MPH POINT OF CARE TEST ORDERA BLES Final Result Performing Organization Address City/[facility]/ZIP Co de Phone Number [facility] [place] [address] * (ABNORMAL) URINALYSIS MICROSCOPIC ONLY (07/15/2016 12:06 EST) WBC, UA less than 1 0 - 5 /HPF 07/15/2016 12:43 [facility] RBC, UA 1 to 5 0 - 5 /HPF 07/15/2016 12:43 [facility] Squam Epithel, UA Many(A) None seen /HPF 07/15/2016 12:43 [facility] Renal Epithel, UA None seen None seen /HPF 07/15/2016 12:43 [facility] Bacteria, UA Rare(A) None seen /HPF 07/15/2016 12:43 [facility] Crystals, UA None seen /HPF 07/15/2016 12:43 [facility] Hyaline Casts, UA None seen /LPF 07/15/2016 12:43 [facility] UA Comment Microscopic results 07/15/2016 12:13 [facility] Comment: are unreliable on urines unrefrig >2hrs or refrig >8hrs. Mucus, UA Present 07/15/2016 12:43 [facility] Comment:Performed at [facility] [place], [place] Urine specimen (specimen) URINE / Unknown 07/15/2016 12:06 EST 07/15/2016 12:17 EST Moy Marquez MD URINALYSIS ORDERABLES Penny l Result Performing Organization Address City/[facility] Co de Phone Number [facility] [address] [place] [address] * TEST, URINE (07/15/2016 12:06 EST) Result- Test, Ur Neg Neg 07/15/2016 12:40 [facility] Comment: NOTE: False negative results may occur in women who are beyond 5-8 weeks gestation. Diagnosis of should be based on a correlation of test results with typical clinical signs and symptoms. [place]formed [place] Urine specimen (specimen) URINE / Unknown 07/15/2016 12:06 EST 07/15/2016 12:16 EST Moy Marquez MD URINALYSIS ORDERABLES Penny l Result [facility] [address] [place] [address] * (ABNORMAL) POCT URINE DIPSTICK (07/15/2016 12:06 EST) Color YELLOW 07/15/2016 12:11 [facility] Clarity, UA Clear 07/15/2016 12:11 [facility] Glucose 2+(A) Neg 07/15/2016 12:11 [facility] Bilirubin Neg Neg 07/15/2016 12:11 [facility] Ketones 1+(A) Neg 07/15/2016 12:11 [facility] Specific [place] 1.015 1.001 - 1.035 07/15/2016 12:11 [facility] Blood 3+(A) Neg 07/15/2016 12:11 [facility] pH 5.5 4.6 - 8.0 07/15/2016 12:11 [facility] Protein Trace(A) Neg 07/15/2016 12:11 [facility] Urobilinogen 0.2 0.2 - 1.0 E.U./dl 07/15/2016 12:11 [facility] Nitrite Neg Neg 07/15/2016 12:11 [facility] Leuk Esterase Trace(A) Neg 07/15/2016 12:11 [facility] tipple mechanic ID [id number] 07/15/2016 12:11 [facility] Comment:Test performed at [facility] Urine specimen (specimen) URINE / Unknown 07/15/2016 12:06 EST 07/15/2016 12:11 EST Moy Marquez MD POINT OF CARE TEST ORDERAB LES Final Result Performing Organization Address City/State/[facility] Co de Phone Number [facility] [address] [place] [address] documented in this encounter Visit Diagnoses Diagnosis Perianal abscess- Primary Abscess of anal and rectal regions Nausea and vomiting, intractability of vomiting not specified, unspecified vomiting type Type 2 diabetes mellitus with complication, unspecified residential insulin use status documented in this encounter [...] as of this encounter Care Teams Principal Web Developer Relationship Specialty Start Date End Date None, Provider PCP - General 03/08/16 08/21/18 documented as of this encounter
--- OUTSIDE RECORDS SUMMARY | 2024-06-03 09:14 | XMS_ITS | Encounter Summary ---
Author Organization [facility] Address [address] [place] [address] Care Team Providers Care Storage Battery Inspector And Tester Name Role Phone None, Provider Primary Care Provider Unavailabl e Reason for Visit * Reason Onset Date Comments Other 07/30/2016 Encounter Details Date Type Department Care Team (Late st Contact Info) Description 07/30/2016 Telephone [facility] Ophthalmology - [address] [id number] Broderick Schwartz MD [address] [facility], [address] [place] [address] Other Social History Tobacco Use [...] Encounter - Catherine Dhillon RN - 07/30/2016 8256 EST Tried one more time, still no go. Placed letter in mail today. [phone] Called pt. She states if fax will [...] and needs a letter faxed to work: [phone]. Just needs to state she had an appointment here today with Dr Schwartz @ 12:30. documented in this encounter Plan of Treatment Not on file documented as of this encounter Visit Diagnoses Not on filedocumented in this encounter Care Teams Storage Battery Inspector And Tester Relationship Specialty Start Date End Date None, Provider PCP - General 03/08/16 08/21/18 documented as of this encounter
--- OUTSIDE RECORDS SUMMARY | 2024-06-03 09:14 | XMS_ITS | Encounter Summary ---
Author Organization [facility] Address [address] [place] [address] Care Team Providers Care Network Director Name Role Phone None, Provider Primary Care Provider Unavailabl e Reason for Visit * Reason Comments Threatened Miscarriage 6 weeks , started with brown discharge Cher, saw OB said it could be normal spotting. Tonight started with bright red vaginal bleeding. Problem Encounter Details Date Type Department Care Team (Late st Contact Info) Description 02/24/2017 22:50 EDT - 02/25/2017 3:35 EDT Emergency [facility] Emergency Department - Main [place] [address] [place] [phone] Kylah Whitaker PA-C [address] [place] [address], [address] [place] [address] Emergency, MD Ekaterina Vaginal bleeding [...] be sent through Care Everywhere. * MISCARRIAGE (MALAYSIAN) * VAGINAL BLEEDING (MALAYSIAN) documented in this encounter Medications at Time [...] suprapubic, and RLQ). Genitourinary: Genitourinary Comments: Female mirror framer was present Multiple clots in the vaginal [...] added GLUCOSE, SERUM Final Number for problems [id number] (ED) Final Relevant Data Procedures ED COURSE [...] of 1604. (02:35) Discussed the patient with SENIOR SCIENTIST. (03:07) Reevaluation. Patient endorsed continued pain but [...] be added GLUCOSE, SERUM 02/25/2017 2:40 EDT [facility] Number for problems [id number] (ED) 02/25/2017 2:40 EDT [facility] TOPOGRAPHY UNKNOWN / Unknown 02/25/2017 2:45 EDT 02/25/2017 2:46 EDT us Kylah Whitaker PA-C HEMATOLOGY & PF4 ORDERABLES Penny l Result [facility] [address] [place] [address] * RAD US PELVIS TRANSABDOMINAL AND TRANSVAGINAL (02/25/2017 1:42 EDT) Anatomical Region Laterality Modality Other 02/25/2017 1:42 EDT 02/25/2017 9:29 EDT Narrative 02/25/2017 9:29 EDT RAD US PELVIS TRANSABDOMINAL AND TRANSVAGINAL ??02/25/2017 1:42 AM Clinical History/Comments: vaginal bleeding Comparison: Per patient, ultrasound examination was obtained February 22, 2017 at her daily release and dupe printer's office. This is not available for review. [...] was obtained February 22, 2017 at her daily release and dupe printer's office. This is not available for review. [...] 70 - 100 mg/dl 02/25/2017 3:22 EDT [facility] BLOOD SPECIMEN / Unknown 02/25/2017 0:52 EDT 02/25/2017 1:11 EDT us Kylah Whitaker PA-C CHEMISTRY & BLOOD GAS ORDERABLES Final Result Performing Organization Address City/State/[facility] Co de Phone Number [facility] [address] [place] [address] * (ABNORMAL) HEMAGRAM AND DIFFERENTIAL (02/25/2017 0:52 EDT) WBC 18.10(H) 4.0 - 12.4 K/cmm 02/25/2017 1:16 [facility] RBC 4.45 3.86 - 5.04 M/cmm 02/25/2017 1:16 [facility] Hemoglobin 13.9 11.6 - 15.2 gm/dl 02/25/2017 1:16 [facility] HCT 38.1 34.9 - 44.4 % 02/25/2017 1:16 [facility] MCV 86 81 - 98 fl 02/25/2017 1:16 [facility] MCH 31.2 26.7 - 33.3 pg 02/25/2017 1:16 [facility] MCHC 36.5(H) 32.1 - 35.9 gm/dl 02/25/2017 1:16 [facility] RDW-CV 11.9 <14.7 % 02/25/2017 1:16 [facility] RDW-SD 37.2 <50.4 fl 02/25/2017 1:16 [facility] PLT 341 141 - 377 K/cmm 02/25/2017 1:16 [facility] MPV 9.4(L) 9.5 - 12.7 fl 02/25/2017 1:16 [facility] Neutrophils 62.0 % 02/25/2017 1:38 [facility] Lymphocytes 29.0 % 02/25/2017 1:38 [facility] Monocytes 6.0 % 02/25/2017 1:38 [facility] Eosinophils 3.0 % 02/25/2017 1:38 [facility] ABS Neutrophils 11.22(H) 2.20 - 8.85 K/cmm 02/25/2017 1:38 [facility] ABS Lymphs 5.25(H) 1.09 - 3.30 K/cmm 02/25/2017 1:38 [facility] ABS Monocytes 1.09(H) 0.1 - 0.8 K/cmm 02/25/2017 1:38 [facility] ABS Eosinophils 0.54 0.03 - 0.61 K/cmm 02/25/2017 1:38 [facility] Type of Diff: Manual 02/25/2017 1:38 [facility] Blood specimen (specimen) BLOOD SPECIMEN / Unknown 02/25/2017 0:52 EDT 02/25/2017 1:11 EDT Kylah Whitaker PA-C PACKAGES & DNA PROBE ORDERABLES Final Result [facility] [address] [place] [address] * (ABNORMAL) HCG FOR (02/25/2017 0:52 EDT) Quant Beta HCG, Preg 1,604(H) <5 mIU/ml 02/25/2017 2:06 [facility] Comment: Reference Range: Negative = <5 Indeterminate = 5-25 recommend repeat in 48 hours. Positive = >25 Blood specimen (specimen) BLOOD SPECIMEN / Unknown 02/25/2017 0:52 EDT 02/25/2017 1:11 EDT Kylah Whitaker PA-C CHEMISTRY & BLOOD GAS ORDERABLES Final Result [facility] [address] [place] [address] documented in this encounter Visit Diagnoses Diagnosis [...] RN) documented in this encounter Care Teams Network Director Relationship Specialty Start Date End Date None, Provider PCP - General 03/08/16 08/21/18 documented as of this encounter
--- OUTSIDE RECORDS SUMMARY | 2024-06-03 09:14 | XMS_ITS | Encounter Summary ---
Author Organization [facility] Address [address] [place] [address] Care Team Providers Care Line Tender Name Role Phone None, Provider Primary Care Provider Unavailabl e Reason for Visit * Reason Comments Cough Sent from [facility], for cough, fever, sore throat x three day, cough in dry, c/o chest pain and headache due to the cough. aox3 lungs sound diminished t/o Encounter Details Date Type Department Care Team (Late st Contact Info) Description 03/08/2016 17:09 EDT - 03/08/2016 23:11 EDT Emergency [facility] Emergency Department - [address] [id number] Broderick Foster MD 111 [facility], Level 1 [place] [phone] Emergency, MD Ekaterina Acute bronchitis, unspecified organism (Primary Dx); Type 2 diabetes mellitus not at goal ([facility]) Discharge Disposition: Home or Self Care [...] Use Robitussin-DM cough syrup as needed. Call [facility] primary care, [phone], to arrange for an appointment as soon [...] Notes * Nini Schultz RN - 03/08/2016 8761 EDT AVS reviewed, asked to f/u with pcp and to return to ed for worsening s/s * Nini Schultz RN - 03/08/2016 3788 EDT Provider at the bedside * Nini Schultz RN - 03/08/2016 1907 EDT Patient ambulatory to bathroom with steady [...] HR-120, BP-90/50, NOTE TAKEN BY DR. FOSTER ([facility]) * Catherine Osullivan - 03/08/2016 1720 EDT TCALL: CRISTY TALBOT, 85, 30YO FEMALE, DMII, NO MEDS X4 MONTHS, NOW RESP. INFECTION, WBC 21,000 GLUC. 273, CXR NEG., HR-120, BP-90/50, NOTE TAKEN BY DR. FOSTER ([facility]) * Catherine Osullivan - 03/08/2016 1720 EDT TCALL: CRISTY TALBOT, 85, 30YO FEMALE, DMII, NO MEDS X4 MONTHS, NOW RESP. INFECTION, WBC 21,000 GLUC. 273, CXR NEG., HR-120, BP-90/50, NOTE TAKEN BY DR. FOSTER ([facility]) * Broderick Foster MD - 03/08/2016 1716 EDT DOS: 03/08/2016 Chief Complaint Patient presents with ??? Cough Sent from [facility], for cough, fever, sore throat x [...] Value Status Glucose, Fingerstick 163 (*) Final Electrical Controls Engineer ID [id number] Final GLUCOSE, GLUCOMETER - Abnormal Glucose, Fingerstick 239 (*) Final Electrical Controls Engineer ID [id number] Final BACTERIAL CULTURE, BLOOD BACTERIAL CULTURE, BLOOD [...] Pt was instruction to follow up at [facility] Primary [facility]. Prior to discharge usual [...] 70 - 100 mg/dl 03/08/2016 21:12 EDT [facility] Electrical Controls Engineer ID [id number] 03/08/2016 21:12 EDT [facility] Comment:Test Performed by [facility] Services BLOOD SPECIMEN / Unknown 03/08/2016 21:11 EDT 03/08/2016 21:12 EDT us Provider Unknown CHEMISTRY & BLOOD GAS ORDERA BLES Final Result Performing Organization Address [facility] Co de Phone Number [facility] [address] [place] [address] * BACTERIAL CULTURE, BLOOD (03/08/2016 18:47 EDT) Result No growth 03/13/2016 8:26 EDT [facility] Blood specimen (specimen) BLOOD SPECIMEN / Unknown 03/08/2016 18:47 EDT 03/08/2016 20:07 EDT Comment:Left~Antecubital Broderick Foster MD MICROBIOLOGY - GENERAL CLEMENTE GOLDEN Final Result [facility] [address] [place] [address] * BACTERIAL CULTURE, BLOOD (03/08/2016 18:47 EDT) Result No growth 03/13/2016 8:26 EDT [facility] Blood specimen (specimen) BLOOD SPECIMEN / Unknown 03/08/2016 18:47 EDT 03/08/2016 20:05 EDT Comment:Right~Antecubital Broderick Foster MD MICROBIOLOGY - GENERAL ORDE [place]OB[place] Final Result Performing Organization Address City/[facility]/ZIP Co de Phone Number [facility] [address] [place] [address] * (ABNORMAL) GLUCOSE, GLUCOMETER (03/08/2016 17:24 EDT) Glucose, Fingerstick 163(H) 70 - 100 mg/dl 03/08/2016 17:26 EDT [facility] Electrical Controls Engineer ID [id number] 03/08/2016 17:26 EDT [facility] Comment:Test Performed by [facility] Services BLOOD SPECIMEN / Unknown 03/08/2016 17:24 EDT 03/08/2016 17:26 EDT us Provider Unknown CHEMISTRY & BLOOD GAS ORDERA BLES Final Result Performing Organization Address [facility] Co de Phone Number [facility] [address] [place] [address] documented in this encounter Visit Diagnoses Diagnosis Acute bronchitis, unspecified organism- Primary Type 2 diabetes mellitus not at goal ([facility]) Type II or unspecified type diabetes [...] 03/08/2016 documented in this encounter Care Teams Line Tender Relationship Specialty Start Date End Date None, Provider PCP - General 03/08/16 08/21/18 documented as of this encounter
--- OUTSIDE RECORDS SUMMARY | 2024-06-03 09:14 | XMS_ITS | Encounter Summary ---
Author Organization [facility] Address [address] [place] [address] Care Team Providers Care Brineyard Supervisor Name Role Phone Benita Shafer GUSTAVO Primary Care Provider [phone] Reason for Referral * AGRICULTURAL SERVICES DIRECTOR (Routine) - New Request Specialty Diagnoses / Procedures Referred By Kit goode Referred To Contact Diagnoses Missed menses Procedures TORCH STRAIGHTENER US OB FIRST TRIMESTER TRANSVAGINAL Nohemy Sales MD Phone: tel: fax: Referral ID Status Reason Start Date Expiration Date V isits Requested Visits Authorized [id number] New Request 10/19/2018 1 1 Reason for Visit * Reason Onset Date Comments 10/19/2018 Encounter Details Date Type Department Care Team (Late st Contact Info) Description 10/19/2018 Telephone [facility] Obstetrics & Midwifery - [address] [id number] Mary Regalado RN Social History Tobacco Use [...] .Initial Appt Screening Form Best Contact Number: [phone] [facility] Provider: HUGO for Type 2 diabetes [...] h/o 5 miscarriages and traumatic experience with [facility] OB and would like to come [...] scribed to patient'spharmacy. Scheduled for first trimester TORCH STRAIGHTENER US for October 24 at 1:45pm- she [...] Procedure Name Priority Date/Time Associated Diagnosis Comments TORCH STRAIGHTENER US OB FIRST TRIMESTER TRANSVAGINAL Routine 10/24/2018 13:58 EDT Missed menses documented in this encounter Results * TORCH STRAIGHTENER US OB FIRST TRIMESTER TRANSVAGINAL (10/24/2018 13:58 [...] Visualized. Embryo: Not visualized. Impression OB transvaginal [id number] 1. Small gestational sac with a yolk [...] Visualized. Embryo: Not visualized. Impression OB transvaginal [id number] 1. Small gestational sac with a yolk [...] OF SERVICE: 10/24/2018 us Nohemy Sales MD [facility] TORCH STRAIGHTENER ORDERABLES Final Result documented in this encounter Visit Diagnoses Diagnosis Missed menses- Primary Absence of menstruation documented in this encounter Care Teams Brineyard Supervisor Relationship Specialty Start Date End Date Benita Shafer NP PCP - General 08/22/18 06/17/19 documented as of this encounter
--- OUTSIDE RECORDS SUMMARY | 2024-06-03 09:14 | XMS_ITS | Encounter Summary ---
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 Type 2 diabetes mellitus without complication, with long-term current use of insulin ([facility]) Abnormal human chorionic gonadotropin (hCG) Charu Flynn MD Phone: tel: fax: [facility] Obstetrics & Midwifery - [address] [address] Phone: tel: fax: Referral ID Status Reason Start Date Expiration Date V isits Requested Visits Authorized [id number] Closed Specialty Services Required 10/26/2018 1 1 [...] complication, with long-term current use of insulin ([facility]) Abnormal human chorionic gonadotropin (hCG) 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 Charu Flynn MD Phone: tel:[phone] fax:[phone] [facility] [address] [address] Phone: tel: fax: Referral ID Status Reason Start Date Expiration Date Visits Requested Visits Authorized [id number] Specialty Report Received Specialty Services Required 10/26/2018 [...] 10/26/2018 11:00 EDT Nurse Only [facility] [place] [address] Unknown, Provider, Nurse, Obgyn Injections 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 She will go tothe lab now [...] loss, as well as lab hours and MANAGER BUSINESS PLANNING triage phone number. Method: Handout and Verbal [...] HCG, Preg 2,338(H) <5 mIU/ml 10/29/2018 10:12 [facility] Comment: Reference Range: Negative [...] Result [facility] [address] [place] [address] * COMPLETE BLOOD COUNT (10/26/2018 12:28 EDT) Pathologist [facility] WBC 11.89 4.0 - 12.4 K/cmm 10/26/2018 13:06 [facility] RBC 4.82 3.86 - 5.04 M/cmm 10/26/2018 13:06 [facility] Hemoglobin 15.0 11.6 - 15.2 gm/dl 10/26/2018 13:06 [facility] HCT 42.5 34.9 - 44.4 % 10/26/2018 13:06 [facility] MCV 88 81 - 98 fl 10/26/2018 13:06 [facility] MCH 31.1 26.7 - 33.3 pg 10/26/2018 13:06 [facility] MCHC 35.3 32.1 - 35.9 gm/dl 10/26/2018 13:06 [facility] RDW-CV 11.9 <14.7 % 10/26/2018 13:06 [facility] RDW-SD 38.2 <50.4 fl 10/26/2018 13:06 [facility] PLT 358 141 - 377 K/cmm 10/26/2018 13:06 [facility] MPV 10.0 9.5 - 12.7 fl 10/26/2018 13:[address] [facility] Blood specimen (specimen) BLOOD SPECIMEN / Unknown 10/26/2018 12:28 EDT 10/26/2018 12:42 EDT Charu Flynn MD HEMATOLOGY & PF4 ORDERAB LES Final Result Performing Organization Address [facility]/ZIP Co de Phone Number [facility] [address] [place] [address] * (ABNORMAL) AST (10/26/2018 12:28 EDT) AST 14(L) 15 - 46 U/L 10/26/2018 13:[address] [facility] Blood specimen (specimen) BLOOD SPECIMEN / Unknown 10/26/2018 12:28 EDT 10/26/2018 12:42 EDT us Charu Flynn MD CHEMISTRY & BLOOD GAS OR DERABLES Final Result Performing Organization Address [facility]/ZIP Co de Phone Number [facility] [address] [place] [address] * ALT (10/26/2018 12:28 EDT) ALT 22 <53 U/L 10/26/2018 13:[address] [facility] Blood specimen (specimen) BLOOD SPECIMEN / Unknown 10/26/2018 12:28 EDT 10/26/2018 12:42 EDT us Charu Flynn MD CHEMISTRY & BLOOD GAS OR DERABLES Final Result Performing Organization Address [facility] Co de Phone Number [facility] [address] [place] [address] * (ABNORMAL) CREATININE (10/26/2018 12:28 EDT) Creatinine 0.44(L) 0.52 - 1.04 mg/dl 10/26/2018 13:[address] [facility] GFR, Calculated 133 >60 ml/min/1.7 3m2 10/26/2018 13:[address] [facility] Comment: eGFR calculated using CKD-EPI equation for non Americans. Multiply eGFR by 1.16 for Americans. Blood specimen (specimen) BLOOD SPECIMEN / Unknown 10/26/2018 12:28 EDT 10/26/2018 12:42 EDT Charu Flynn MD CHEMISTRY & BLOOD GAS OR DERABLES Final Result Performing Organization Address City/[facility]/ZIP Co de Phone Number [facility] [address] [place] [address] * BUN (10/26/2018 12:28 EDT) BUN 11 10 - 26 mg/dl 10/26/2018 13:[address] [facility] Blood specimen (specimen) BLOOD SPECIMEN / Unknown 10/26/2018 12:28 EDT 10/26/2018 12:42 EDT Charu Flynn MD CHEMISTRY & BLOOD GAS OR DERABLES Final Result Performing Organization Address City/[facility] Co de Phone Number [facility] [address] [place] [address] documented in this encounter Visit Diagnoses Diagnosis 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
--- OUTSIDE RECORDS SUMMARY | 2024-06-03 09:14 | XMS_ITS | Encounter Summary ---
Author Organization Health system Address [address] [place] [address] Care Team Providers Care Sales Recruiting Coordinator Name Role Phone Benita Shafer GUSTAVO Primary Care Provider [phone] Reason for Visit * Reason Comments Eye Problem Left eye lid pain an d swelling, onset Tuesday fiordaliza. recent shingle in that eye Encounter Details Date Type Department Care Team (Latest Contact Info) Description 09/06/2018 8:37 EDT - 09/06/2018 10:13 EDT Hospital Encounter [facility] Urgent Care - [address] [address] Fran Blanco MD [address] [place] [phone] Unknown, Provider, Hordeolum externum of left upper [...] [facility] have follow [facility] [...] beginning of August. She was seen in [place] and had follow-up with the chemical handler, Dr. Jerad Cruz. She reports that her [...] approx 2012 - had SI, treated at [facility]. Marijuana prn to help with stress/anxiety sx. [...] 09/06/2018 documented in this encounter Care Teams Sales Recruiting Coordinator Relationship Specialty Start Date End Date Benita Shafer NP PCP - General 08/22/18 06/17/19 documented as of this encounter
--- OUTSIDE RECORDS SUMMARY | 2024-06-03 09:14 | XMS_ITS | Encounter Summary ---
Author Organization [facility] Address [address] [place] [address] Care Team Providers Care Folder Machine Adjuster Name Role Phone Benita Shafer CMS EXPERT Primary Care Provider [phone] Reason for Visit * Reason Comments Shingles States that she thin ks she is having a shingles flare on face and head, states had outbreak 3 weeks ago in same areas Encounter Details Date Type Department Care Team (Late st Contact Info) Description 08/22/2018 9:08 EDT - 08/22/2018 12:20 EDT Emergency [facility] Emergency Department - [address] [phone] Doris Moreno MD [address] [facility], [address] [place] [address] Emergency, MD Ekaterina Trigeminal herpes [...] Type 2 diabetes mellitus without complications-E11.9[ICD-10-CM] Z79.84 senior care (current) use of oral hypoglycemic drugs-Z79.84[ICD-10-CM] Z79.4 senior care (current) use of insulin-Z79.4[ICD-10-CM] F17.210 Nicotine dependence, [...] very important. Please follow-up with your supervisor erection shop as previously scheduled. Please contact your primary [...] be sent through Care Everywhere. * SHINGLES (PAKISTANI) * NEUROPATHIC PAIN ([place]) documented in this encounter Medications at Time [...] conditions at the [facility] on 08/22/2018 Scribe attestation: This documentation [...] Value Status Glucose, Fingerstick 234 (*) Final Payroll Supervisor ID [id number] Final POCT GLUCOSE Procedures Procedures ED course/Medical [...] 70 - 100 mg/dl 08/22/2018 12:[address] [facility] Payroll Supervisor ID [id number] 08/22/2018 12:[address] [facility] Comment:Test Performed by [employer] [facility] BLOOD SPECIMEN / Unknown 08/22/2018 12:04 EDT 08/22/2018 12:06 EDT us Provider Unknown CHEMISTRY & BLOOD GAS ORDERA BLES Final Result [facility] [address] [place] [address] documented in this encounter Visit Diagnoses Diagnosis [...] 08/22/2018 documented in this encounter Care Teams Folder Machine Adjuster Relationship Specialty Start Date End Date Benita Shafer NP PCP - General 08/22/18 06/17/19 documented as of this encounter
--- OUTSIDE RECORDS SUMMARY | 2024-06-03 09:14 | XMS_ITS | Encounter Summary ---
Author Organization [facility] Address [address] [place] [address] Care Team Providers Care Machine Carton Marker Name Role Phone Nimisha Clifton CENTRIFUGAL STATION OPERATOR Primary Care Provider [phone] Reason for Visit * Reason Onset Date Comments No Show 10/03/2015 Encounter Details Date Type Department Care Team (Late st Contact Info) Description 10/03/2015 Telephone [facility] Adult Primary Care - [place] [address] [place], [place] [address] Nimisha Clifton, CENTRIFUGAL STATION OPERATOR [address] [facility] [address] [place] [address] No Show Social History Tobacco [...] filedocumented in this encounter Care Teams Machine Carton Marker Relationship Specialty Start Date End Date Nimisha Clifton NP 1 [facility] [address] [place] [phone] PCP - General 08/28/15 03/07/16 documented as of this encounter
--- OUTSIDE RECORDS SUMMARY | 2024-06-03 09:14 | XMS_ITS | Encounter Summary ---
Author Organization [facility] Address [address] [place] [address] Care Team Providers Care Chair Maker Name Role Phone None, Provider Primary [...] Info) Description 07/30/2016 12:30 EST Office Visit [facility] Ophthalmology - [address] [address] Broderick Schwartz MD 111 [facility], [address] [place] [address] Social History Tobacco Use Types [...] Psychiatric: NL Endocrine: Diabetes Hematologic: NL Immunologic: Aquatic Biologist: Exposures: Other: Attestation: Allergies include: Citalopram and [...] Normal Normal Vessels Normal Normal Care Teams Chair Maker Relationship Specialty Start Date End Date None, Provider PCP - General 03/08/16 08/21/18 documented as of this encounter
--- OUTSIDE RECORDS SUMMARY | 2024-06-03 09:14 | XMS_ITS | Encounter Summary ---
Author Organization [facility] Address [address] [place] [address] Care Team Providers Care Real Estate Specialist Name Role Phone None, Provider Primary [...] 20:46 EDT - 12/05/2016 2:52 EDT Emergency [facility] Emergency Department - [address] [address] Benita Sol MD [address] [place] [address], Level [address] [place] [address] Emergency, MD Ekaterina Type 2 diabetes mellitus with hyperglycemia, with long-term current use of insulin ([facility]) (Primary Dx) Discharge Disposition: Home or Self [...] Allergy status to analgesic agent status-Z88.6[ICD-10-CM] Z79.4 [facility] (current) use of insulin-Z79.4[ICD-10-CM] documented in this encounter Discharge Instructions * Discharge Instructions* Benita Sol MD - 12/05/2016 2:13 EDT Metformin is $4/month at [facility]. Please see a primary care doctor [facility]. You can call from our list of accepting providers. Continue to take your Lantus. This is very important. * Attachments The following attachments cannot be sent through Care Everywhere. * DIABETES: TYPE 2: METFORMIN: GENERAL INFO (WOLOF) * DIABETES DIET GUIDELINES: GENERAL INFO (WOLOF) documented in this encounter Medications at Time [...] is supposed totake insulin but im workin [employer] my insurance for it right now. HPI [...] Value Status Glucose, Fingerstick 350 (*) Final Rigging Up Man ID [id number] Final GLUCOSE, GLUCOMETER - Abnormal Glucose, Fingerstick 316 (*) Final Rigging Up Man ID [id number] Final HEMAGRAM AND DIFFERENTIAL - Abnormal WBC [...] Bilirubin Neg Final Ketones Neg Final Specific Morse 1.020 Final pH 6.0 Final Protein Neg Final Urobilinogen 0.2 Final Nitrite Neg Final Leuk Esterase Neg Final Tech ID [id number] Final POCT TEST, CLINITEK UPT Result Neg Final Tech ID [id number] Final POCT GLUCOSE Relevant Data Procedures ED [...] the Emergency Department: Improved PCP: Provider None [facility] 12/05/2016 9:25 No flowsheet data found. This [...] (12/05/2016 1:16 EDT) Color YELLOW 12/05/2016 1:24 [facility] Clarity, UA Clear 12/05/2016 1:24 [facility] Glucose 3+(A) Neg 12/05/2016 1:24 [facility] Bilirubin Neg Neg 12/05/2016 1:24 [facility] Ketones Neg Neg 12/05/2016 1:24 [facility] Specific Morse 1.020 1.001 - 1.035 12/05/2016 1:24 [facility] Blood 2+(A) Neg 12/05/2016 1:24 [facility] pH 6.0 4.6 - 8.0 12/05/2016 1:24 [facility] Protein Neg Neg 12/05/2016 1:24 [facility] Urobilinogen 0.2 0.2 - 1.0 E.U./dl 12/05/2016 1:24 [facility] Nitrite Neg Neg 12/05/2016 1:24 [facility] Leuk Esterase Neg Neg 12/05/2016 1:24 [facility] tong setter ID [id number] 12/05/2016 1:24 [facility] Comment:Test performed at Em ergency Department Urine specimen (specimen) URINE / Unknown 12/05/2016 1:16 EDT 12/05/2016 1:24 EDT Benita Sol MD POINT OF CARE TEST ORDERABLES Final Result Performing Organization Address City/[facility]/ZIP Co de Phone Number [facility] [address] [place] [address] * POCT TEST, CLINITEK (12/05/2016 1:14 EDT) UPT Result Neg Neg 12/05/2016 1:27 EDT [facility] tong setter ID [id number] 12/05/2016 1:27 EDT [facility] Comment:Test performed at Em ergency Department Urine specimen (specimen) URINE / Unknown 12/05/2016 1:14 EDT 12/05/2016 1:27 EDT Benita Sol MD POINT OF CARE TEST ORDERABLES Final Result Performing Organization Address City/[facility]/ZIP Co de Phone Number [facility] [address] [place] [address] * (ABNORMAL) BASIC METABOLIC PANEL (12/05/2016 1:03 EDT) Sodium 140 136 - 145 mEq/L 12/05/2016 1:41 [facility] Potassium 4.4 3.5 - 5.0 mEq/L 12/05/2016 1:41 [facility] Chloride 101 96 - 110 mEq/L 12/05/2016 1:41 [facility] CO2 26 22 - 32 mEq/L 12/05/2016 1:41 [facility] BUN 14 10 - 26 mg/dl 12/05/2016 1:41 [facility] Creatinine 0.48(L) 0.52 - 1.04 mg/dl 12/05/2016 1:41 [facility] GFR, Calculated 131 >60 ml/min/1.7 3m2 12/05/2016 1:41 [facility] Comment: eGFR calculated using CKD-EPI equation for non Americans. Multiply eGFR by 1.16 for Americans. Calcium 9.9 8.5 - 10.5 mg/dl 12/05/2016 1:41 [facility] Calculated Calcium 9.7 8.5 - 10.5 mg/dl 12/05/2016 1:41 [facility] Glucose, Serum 295(H) 70 - 100 mg/dl 12/05/2016 1:41 [facility] Fasting? Unknown 12/05/2016 1:17 [facility] Blood specimen (specimen) BLOOD SPECIMEN / Unknown 12/05/2016 1:03 EDT 12/05/2016 1:17 EDT us Benita Sol MD CHEMISTRY & BLOOD GAS ORDERAB LES Final Result [facility] [address] [place] [address] * (ABNORMAL) HEMAGRAM AND DIFFERENTIAL (12/05/2016 1:03 EDT) WBC 16.71(H) 4.0 - 12.4 K/cmm 12/05/2016 1:22 [facility] RBC 5.08(H) 3.86 - 5.04 M/cmm 12/05/2016 1:22 [facility] Hemoglobin 15.6(H) 11.6 - 15.2 gm/dl 12/05/2016 1:22 [facility] HCT 43.8 34.9 - 44.4 % 12/05/2016 1:22 [facility] MCV 86 81 - 98 fl 12/05/2016 1:22 [facility] MCH 30.7 26.7 - 33.3 pg 12/05/2016 1:22 [facility] MCHC 35.6 32.1 - 35.9 gm/dl 12/05/2016 1:22 [facility] RDW-CV 12.2 <14.7 % 12/05/2016 1:22 [facility] RDW-SD 38.3 <50.4 fl 12/05/2016 1:22 [facility] PLT 415(H) 141 - 377 K/cmm 12/05/2016 1:22 [facility] MPV 9.6 9.5 - 12.7 fl 12/05/2016 1:22 [facility] Neutrophils 54.0 % 12/05/2016 2:05 [facility] Lymphocytes 34.0 % 12/05/2016 2:05 [facility] Monocytes 7.0 % 12/05/2016 2:05 [facility] Eosinophils 3.0 % 12/05/2016 2:05 [facility] Basophils 2.0 % 12/05/2016 2:05 [facility] ABS Neutrophils 9.03(H) 2.20 - 8.85 K/cmm 12/05/2016 2:05 [facility] ABS Lymphs 5.68(H) 1.09 - 3.30 K/cmm 12/05/2016 2:05 [facility] ABS Monocytes 1.17(H) 0.1 - 0.8 K/cmm 12/05/2016 2:05 [facility] ABS Eosinophils 0.50 0.03 - 0.61 K/cmm 12/05/2016 2:05 [facility] ABS Basophils 0.33(H) 0.01 - 0.11 K/cmm 12/05/2016 2:05 [facility] Type of Diff: Manual 12/05/2016 2:05 [facility] Blood specimen (specimen) BLOOD SPECIMEN / Unknown 12/05/2016 1:03 EDT 12/05/2016 1:18 EDT us Benita Sol MD PACKAGES & DNA PROBE ORDERABL ES Final Result [facility] [address] [place] [address] * (ABNORMAL) GLUCOSE, GLUCOMETER (12/05/2016 0:32 EDT) Glucose, Fingerstick 316(H) 70 - 100 mg/dl 12/05/2016 0:32 EDT [facility] Rigging Up Man ID [id number] 12/05/2016 0:32 EDT [facility] Comment:Test Performed by [facility] Services BLOOD SPECIMEN / Unknown 12/05/2016 0:32 EDT 12/05/2016 0:33 EDT us Provider Unknown CHEMISTRY & BLOOD GAS ORDERA BLES Final Result [facility] [address] [place] [address] * (ABNORMAL) GLUCOSE, GLUCOMETER (12/04/2016 20:58 EDT) Glucose, Fingerstick 350(H) 70 - 100 mg/dl 12/04/2016 21:02 EDT [facility] Rigging Up Man ID [id number] 12/04/2016 21:02 EDT [facility] Comment:[facility] BLOOD SPECIMEN / Unknown 12/04/2016 20:58 EDT 12/04/2016 21:02 EDT us Provider Unknown CHEMISTRY & BLOOD GAS ORDERA BLES Final Result [facility] [address] [place] [address] documented in this encounter Visit Diagnoses Diagnosis Type 2 diabetes mellitus with hyperglycemia, with long-term current use of insulin ([facility])- Primary documented in this encounter [...] 12/05/2016 documented in this encounter Care Teams Real Estate Specialist Relationship Specialty Start Date End Date None, Provider PCP - General 03/08/16 08/21/18 documented as of this encounter
--- OUTSIDE RECORDS SUMMARY | 2024-06-03 09:14 | XMS_ITS | Encounter Summary ---
Author Organization [facility] Address [address] [place] [address] Care Team Providers Care Operations Research Analyst Name Role Phone Yannicknigel Nimisha Mendoza NEEDLE STRAIGHTENER Primary Care Provider [phone] Encounter Details Date Type Department Care Team (Late st Contact Info) Description 09/03/2015 Phlebotomy Only [address] [address] Oyster Shucker, Outpatient Type 2 diabetes mellitus without complication ([facility]) ([facility]); Tachycardia; Depression, unspecified depression type Social History [...] EDT Type 2 diabetes mellitus without complication ([facility]) ([facility]) COMPREHENSIVE METABOLIC PANEL (CMP) Routine 09/03/2015 12:33 EDT Type 2 diabetes mellitus without complication ([facility]) [facility] documented in this encounter Results * (ABNORMAL) THYROID CASCADE (09/03/2015 12:33 EDT) Pathologist [facility] TSH 0.48(L) 0.55 - 4.78 uIU/ml 09/03/2015 18:19 EDT [facility] Comment: TSH cascade is not recommended for patients in which pituitary or hypothalamic disorders are suspected. Blood specimen (specimen) BLOOD SPECIMEN / Unknown 09/03/2015 12:33 EDT 09/03/2015 13:37 EDT Nimisha Clifton NP CHEMISTRY & BLOOD GAS ORD ERABLES Final Result Performing Organization Address [facility] Co de Phone Number [facility] [address] [place] [address] * HEMOGLOBIN A1C (09/03/2015 12:33 EDT) [facility] Hemoglobin A1C 8.8 % 09/03/2015 14:56 EDT [facility] Comment: Reference Range: [...] Avg Glucose 206 mg/dl 6 14:56 EDT [facility] Comment: eAG represents the A1c result expressed as average glucose in mg/dl. Blood specimen (specimen) BLOOD SPECIMEN / Unknown 09/03/2015 12:33 EDT 09/03/2015 13:37 EDT Nimisha Clifton NP CHEMISTRY & BLOOD GAS ORD ERABLES Final Result Performing Organization Address [facility] Co de Phone Number [facility] [address] [place] [address] * (ABNORMAL) COMPREHENSIVE METABOLIC PANEL (CMP) (09/03/2015 12:33 EDT) Pathologist [facility] Potassium 4.1 3.5 - 5.0 mEq/L 09/03/2015 14:15 [facility] Sodium 141 136 - 145 mEq/L 09/03/2015 14:15 [facility] Chloride 101 96 - 110 mEq/L 09/03/2015 14:15 [facility] CO2 29 24 - 32 mEq/L 09/03/2015 14:15 [facility] Total Alkaline Phosphatase 84 38 - 126 U/L 09/03/2015 14:15 [facility] Bilirubin, Total <0.5 <1.4 mg/dl 09/03/19 16 14:15 [facility] AST 19 15 - 46 U/L 09/03/2015 14:15 [facility] ALT 33 <53 U/L 09/03/2015 14:15 [facility] Albumin 3.9 3.4 - 4.9 g/dl 09/03/2015 14:15 [facility] Total Protein 6.6 6.3 - 8.2 g/dl 09/03/2015 14:15 [facility] Creatinine 0.48(L) 0.52 - 1.04 mg/dl 09/03/2015 14:15 [facility] GFR, Calculated 132 >60 ml/min/1.7 3m2 09/03/2015 14:15 [facility] Comment: eGFR calculated using CKD-EPI equation for non Americans. Multiply eGFR by 1.16 for Americans. BUN 11 10 - 26 mg/dl 09/03/2015 14:15 [facility] Calcium 9.8 8.5 - 10.5 mg/dl 09/03/2015 14:15 [facility] Calculated Calcium 10.3 8.5 - 10.5 mg/dl 09/03/2015 14:15 [facility] Glucose, Serum 205(H) 70 - 100 mg/dl 09/03/2015 14:15 [facility] Fasting? No 09/03/2015 12:23 [facility] Blood specimen (specimen) BLOOD SPECIMEN / Unknown 09/03/2015 12:33 EDT 09/03/2015 13:37 EDT Nimisha Clifton NP CHEMISTRY & BLOOD GAS ORD ERABLES Final Result [facility] [address] [place] [address] documented in this encounter Visit Diagnoses Diagnosis Type 2 diabetes mellitus without complication ([facility]) Type II or unspecified type diabetes mellitus without mention of complication, not stated as uncontrolled Tachycardia Tachycardia, unspecified Depression, unspecified depression type documented in this encounter Care Teams Operations Research Analyst Relationship Specialty Start Date End Date Nimisha Clifton NP 1 [facility] [address] [place] [address] PCP - General 08/28/15 03/07/16 documented as of this encounter
--- OUTSIDE RECORDS SUMMARY | 2024-06-03 09:14 | XMS_ITS | Encounter Summary ---
Author Organization [facility] Address [address] [place] [address] Care Team Providers Care Polisher Apprentice Name Role Phone Benita Shafer GUSTAVO Primary Care Provider [phone] Encounter Details Date Type Department Care Team (Late st Contact Info) Description 10/26/2018 8:34 EDT - 10/26/2018 11:35 EDT Hospital Encounter [facility] [address] [place] [address] Ana Coronado MD [address] [facility], [address] [place] [address] Discharge Disposition: Auto Discharge Social [...] skin at bedtime. 0 lancets One Touch [employer] or other brand compatible with lancing device [...] on filedocumented in this encounter Care Teams Polisher Apprentice Relationship Specialty Start Date End Date Benita Shafer NP PCP - General 08/22/18 06/17/19 documented as of this encounter
--- OUTSIDE RECORDS SUMMARY | 2024-06-03 09:14 | XMS_ITS | Encounter Summary ---
Author Organization [facility] Address [address] [place] [address] Care Team Providers Care Emissions Repair Technician Name Role Phone Benita Shafer GUSTAVO Primary Care Provider Encounter Details Date Type Department Care Team (Late st Contact Info) Description 10/24/2018 14:34 EDT - 10/24/2018 23:59 EDT Hospital Encounter [facility] [address] [place] [address] Ana Coronado MD [address] [facility], [address] [place] [address] Discharge Disposition: Auto Discharge Social [...] skin at bedtime. 0 lancets One Touch [employer] or other brand compatible with lancing device [...] on filedocumented in this encounter Care Teams Emissions Repair Technician Relationship Specialty Start Date End Date Benita Shafer NP PCP - General 08/22/18 06/17/19 documented as of this encounter
--- OUTSIDE RECORDS SUMMARY | 2024-06-03 09:14 | XMS_ITS | Encounter Summary ---
Author Organization [facility] Address [address] [place] [address] Care Team Providers Care Title Camera Operator Name Role Phone Benita Shafer GUSTAVO Primary Care Provider [phone] Encounter Details Date Type Department Care Team (Late st Contact Info) Description 10/24/2018 Orders Only [facility] - [address] [id number] Ana Coronado MD [address] [facility], [address] [place] [address] Complication of in first trimester [...] Preg 1,286(H) <5 mIU/ml 10/24/2018 15:40 EDT [facility] Comment: Reference Range: Negative = <5 Indeterminate = 5-25 recommend repeat in 48 hours. Positive = >25 The results of this assay can be falsely lowered due to the consumption of Biotin. Blood specimen (specimen) BLOOD SPECIMEN / Unknown 10/24/2018 14:42 EDT 10/24/2018 14:54 EDT us Ana Coronado MD CHEMISTRY & BLOOD GAS CLEMENTE GOLDEN Final Result [facility] [address] [place] [id number] documented in this encounter Visit Diagnoses Diagnosis Complication of in first trimester- Primary documented in this encounter Care Teams Title Camera Operator Relationship Specialty Start Date End Date Benita Shafer NP PCP - General 08/22/18 06/17/19 documented as of this encounter
--- OUTSIDE RECORDS SUMMARY | 2024-06-03 09:14 | XMS_ITS | Encounter Summary ---
Author Organization [facility] Address [address] [place] [address] Care Team Providers Care Shoe Stitcher Odd Name Role Phone None, Provider Primary Care Provider Unavailabl e Reason for Visit * Reason Comments Eye Problem woke yesterday am wi th right eye lid swelling, worsening today, now with blurred vision. denies drainage. Encounter Details Date Type Department Care Team (Late st Contact Info) Description 07/28/2016 20:50 EST - 07/28/2016 22:56 EST Emergency [facility] Emergency Department - Main [address] [address] Fran Barbosa MD [address] [place] [address], [address] [place] [address] Emergency, MD Ekaterina Corneal abrasion, [...] complications-E11.9[ICD-10-CM] F17.210 Nicotine dependence, cigarettes, uncomplicated-F17.210[ICD-10-CM] Z79.84 dumper mold cleaner (current) use of oral hypoglycemic drugs-Z79.84[ICD-10-CM] Z88.6 [...] sent through Care Everywhere. * CORNEAL SCRATCHES (NEPALI) documented in this encounter Medications at Time of Discharge metFORMIN (GLUCOPHAGE) 500 mg tablet Take 1 Tab by mouth 2 times daily. 180 Tab 3 07/15/2016 12/05/2016 documented as of this encounter Discharge Disposition Disposition Code Departure Means Destination Home or Self Care Walk-out Home documented in this encounter ED Notes * Ann Martínez RN - 07/28/2016 0249 EST Ordered for discharge. Aftercare instructions, follow [...] RN) documented in this encounter Care Teams Shoe Stitcher Odd Relationship Specialty Start Date End Date None, Provider PCP - General 03/08/16 08/21/18 documented as of this encounter
--- OUTSIDE RECORDS SUMMARY | 2024-06-03 09:14 | XMS_ITS | Encounter Summary ---
Author Organization [facility] Address [address] [place] [address] Care Team Providers Care Community Organization Worker Name Role Phone None, Provider Primary Care Provider Unavailabl e Reason for Visit * Reason Comments Cough Encounter Details Date Type Department Care Team (Latest Contact Info) Description 03/08/2016 14:28 EDT - 03/08/2016 16:55 EDT Hospital Encounter [facility] Ur[facility] - [address] [address] Scar Marquez MD [address] [place] [address] [phone] Unknown, Provider, Leukocytosis, unspecified type (Primary Dx); [...] - 03/08/2016 1654 EDT Report given to [facility] patient transported to [facility] ED for further evaluation IV infusing. [...] the legs or lungs. She has used gmqb-tel-auwuddm Robitussin and Tylenol with little improvement. She [...] She did take a plane ride to [place] in January of this year. She has [...] 09/04/201502/18, 08/19. Followed by Dr. López[facility]ili[facility] in [facility] ??? Family history of rheumatoid arthritis 09/04/2015 Mother, pt with chronic back pain. Told arthritis in spine in teen yrs. ??? Type 2 diabetes mellitus 09/03/2015 Dx approx age 25. Controlled with lifestyle behaviors, wt loss. Had taken lantus in past 80u, Followed by endocrine in [facility]. Stopped few yrs ago until this past month. ??? Anxiety and depression 05/12/2010 Onset teen yrs. Treated with citalopram in approx 2012 - had SI, treated at [facility]. Marijuana prn to help with stress/anxiety sx. [...] Neg Ketones Trace (A) Neg Specific [place] >=1.030 1.001 - 1.035 Blood 1+ (A) Neg pH 5.5 4.6 - 8.0 Protein Trace (A) Neg Urobilinogen 0.2 0.2 - 1.0 E.U./dl Nitrite Neg Neg Leuk Esterase Neg Neg Tech ID [id number] Radiology orders: None Imaging Results CHEST PA [...] preliminary report dictated by Dr. Madhuri Wolf, secretary to the vice president, and has not been finalized by an [...] preliminary report dictated by Dr. Madhuri Wolf, secretary to the vice president, and has not been finalized by an [...] preliminary report dictated by Dr. Madhuri Wolf, secretary to the vice president, and has not been finalized by an [...] other diagnoses. She is transferred to the [facility] emergency department now in stable condition. [...] of further medications. Upon departure from [facility], the patient's pain was 9 on a zero to ten scale. Condition at departure from the [facility] : Stable MDM [...] Shea RN - 03/08/2016 1433 EDT Bed: [facility] Expected date: Expected time: Means of [...] EDT) 03/10/2016 9:47 EDT us Scan 2 Security Sergeant PROCEDURE/MINOR SURGICAL OR DERABLES Final Result * ED/URGENT CARE ADD-ON (03/09/2016 13:00 EDT) Tests to be added URINE TEST 03/09/2016 12:58 EDT [facility] Number for problems [id number] (URGENT CARE) 03/09/2016 12:58 EDT [facility] Comment:Performed at [facility], [place], [place] TOPOGRAPHY UNKNOWN / Unknown 03/09/2016 13:00 EDT 03/09/2016 13:07 EDT us Scar Marquez MD HEMATOLOGY & PF4 ORDERABLE S Final Result [facility] [address] [place] [address] * TEST, URINE (03/08/2016 16:25 EDT) Result- Test, Ur Neg Neg 03/09/2016 13:15 EDT [facility] Comment: NOTE: False negative results may occur in women who are beyond 5-8 weeks gestation. Diagnosis of should be based on a correlation of test results with typical clinical signs and symptoms. Performed at [facility], [place], [place] URINE / Unknown 03/08/2016 1 6:25 EDT 03/09/2016 13:06 EDT Scar Marquez MD URINALYSIS ORDERABLES Penny islas Result [facility] [address] [place] [address] * (ABNORMAL) URINE MICROSCOPIC ONLY (03/08/2016 16:25 EDT) WBC, UA less than 1 0 - 5 /HPF 03/08/2016 17:24 EDT [facility] RBC, UA less than 1 0 - 5 /HPF 03/08/2016 17:24 [facility] Squam Epithel, UA Many(A) None seen /HPF 03/08/2016 17:24 [facility] Renal Epithel, UA None seen None seen /HPF 03/08/2016 17:24 [facility] Bacteria, UA None seen None seen /HPF 03/08/2016 17:24 [facility] Crystals, UA None seen /HPF 03/08/2016 17:24 [facility] Hyaline Casts, UA None seen /LPF 03/08/2016 17:24 [facility] UA Comment Microscopic results 03/08/2016 16:31 [facility] Comment: are unreliable on urines unrefrig >2hrs or refrig >8hrs. Mucus, UA Present 03/08/2016 17:24 [facility] Comment:Performed at [facility] [place], [place] Urine specimen (specimen) URINE / Unknown 03/08/2016 16:25 EDT 03/08/2016 16:57 EDT Scar Marquez MD URINALYSIS ORDERABLES Penny l Result [facility] [address] [place] [address] * (ABNORMAL) POCT URINE DIPSTICK (03/08/2016 16:25 EDT) Color DARK YELLOW 03/08/2016 16:27 EDT [facility] Clarity, UA Clear 03/08/2016 16:27 EDT [facility] Glucose 2+(A) Neg 03/08/2016 16:27 EDT [facility] Bilirubin Neg Neg 03/08/2016 16:27 T [facility] Ketones Trace(A) Neg 03/08/2016 16:27 EDT [facility] Specific [place] >=1.030 1.001 - 1.035 03/08/2016 16:27 EDT [facility] Blood 1+(A) Neg 03/08/2016 16:27 EDT [facility] pH 5.5 4.6 - 8.0 03/08/2016 16:27 T [facility] Protein Trace(A) Neg 03/08/2016 16:27 EDT [facility] Urobilinogen 0.2 0.2 - 1.0 E.U./dl 03/08/2016 16:27 EDT [facility] Nitrite Neg Neg 03/08/2016 16:27 T [facility] Leuk Esterase Neg Neg 03/08/2016 16:27 EDT [facility] snow technician ID [id number] 03/08/2016 16:27 T [facility] Comment:Test performed at [facility] in [facility] Urine specimen (specimen) URINE / Unknown 03/08/2016 16:25 EDT 03/08/2016 16:27 EDT Scar Marquez MD POINT OF CARE TEST ORDERAB LES Final Result [facility] [address] [place] [address] * EKG 12-LEAD (03/08/2016 16:14 EDT) 03/08/2016 16:1 4 EDT Narrative [facility] - 03/08/2016 16:24 EDT ? PC Site ? Test Date: ?2016-03-08 Pat Name: ? CRISTY TALBOT ? Department: ?? [facility] ? Room: ? 06 Gender: ? F ?Substation Manager: ?? : ?[id number] ? Requested By: JOHNNY Alonzo Order Number: [id number] ? Sammie MARTÍNEZ: ?? SCAR MARQUEZ MD ? Measurements Intervals ?[place] ? Rate: ? 124 ?P: ?50 [place]: ? 130 ?QRS: ?27 QRSD: ? 92 [...] Date: 2016-03-08 Pat Name: CRISTY TALBOT Department: [facility] Room: Gender: F Substation Manager: : [id number] Requested By: JOHNNY Alonzo Order Number: [id number] Sammie MD: SCAR MARQUEZ MD Measurements Intervals [place] Rate: 124 P: 50 [place]: 130 QRS: 27 QRSD: 92 T: -14 [...] MD CARDIAC ECG ORDERABLES Fin al Result [facility] * CHEST PA AND [...] preliminary report dictated by Dr. Madhuri Wolf, secretary to the vice president, and has not been finalized by an [...] preliminary report dictated by Dr. Madhuri Wolf, secretary to the vice president, and has not been finalized by an attending radiologist. I have personally reviewed the images and the above interpretation and agree with the findings. us Scar Marquez MD IMG DIAGNOSTIC IMAGING ORD ERABLES Final Result * D-DIMER (03/08/2016 15:10 EDT) D-Dimer <200 <230 ng/mL 03/08/2016 15:50 T [facility] Comment: CUTOFF VALUE FOR THE EXCLUSION OF DVT and PE: 230 ng/mL D-dimer units Any use of the age-adjusted cutoff value is a post-analytic modification of this FDA-approved test and is considered off-label use of the test result. [facility] laboratory does not have literature to support the validity of an age-adjusted cutoff for our specific assay. Performed at [facility], [place], [place] Blood specimen (specimen) BLOOD SPECIMEN / Unknown 03/08/2016 15:10 EDT 03/08/2016 15:38 EDT us Scar Marquez MD HEMATOLOGY & PF4 ORDERABLE S Final Result [facility] [address] [place] [address] * (ABNORMAL) COMPREHENSIVE METABOLIC PANEL (CMP) (03/08/2016 15:10 EDT) Potassium 4.5 3.5 - 5.0 mEq/L 03/08/2016 16:07 [facility] Sodium 137 136 - 145 mEq/L 03/08/2016 16:07 [facility] Chloride 99 96 - 110 mEq/L 03/08/2016 16:07 [facility] CO2 27 24 - 32 mEq/L 03/08/2016 16:07 [facility] Total Alkaline Phosphatase 122 38 - 126 U/L 03/08/2016 16:07 [facility] Bilirubin, Total <0.5 <1.4 mg/dl 03/08/20 16 16:07 [facility] AST 16 15 - 46 U/L 03/08/2016 16:07 [facility] ALT 17 <53 U/L 03/08/2016 16:07 [facility] Albumin 3.9 3.4 - 4.9 g/dl 03/08/2016 16:07 [facility] Total Protein 7.1 6.3 - 8.2 g/dl 03/08/2016 16:07 [facility] Creatinine 0.50(L) 0.52 - 1.04 mg/dl 03/08/2016 16:07 [facility] GFR, Calculated 130 >60 ml/min/1.7 3m2 03/08/2016 16:07 [facility] Comment: eGFR calculated using CKD-EPI equation for non Americans. Multiply eGFR by 1.16 for Americans. BUN 9(L) 10 - 26 mg/dl 03/08/2016 16:07 [facility] Calcium 9.7 8.5 - 10.5 mg/dl 03/08/2016 16:07 [facility] Calculated Calcium 10.2 8.5 - 10.5 mg/dl 03/08/2016 16:07 [facility] Glucose, Serum 278(H) 70 - 100 mg/dl 03/08/2016 16:07 [facility] Fasting? Unknown 03/08/2016 15:39 [facility] Comment:Performed at [facility], [place], [place] Blood specimen (specimen) BLOOD SPECIMEN / Unknown 03/08/2016 15:10 EDT 03/08/2016 15:38 EDT Scar Marquez MD CHEMISTRY & BLOOD GAS [facility] Final Result [facility] [address] [place] [address] * (ABNORMAL) HEMAGRAM AND DIFFERENTIAL (03/08/2016 15:10 EDT) WBC 21.39(H) 4.0 - 12.4 K/cmm 03/08/2016 15:50 [facility] RBC 4.87 3.86 - 5.04 M/cmm 03/08/2016 15:50 [facility] Hemoglobin 15.2 11.6 - 15.2 gm/dl 03/08/2016 15:50 [facility] HCT 42.5 34.9 - 44.4 % 03/08/2016 15:50 [facility] MCV 87 81 - 98 fl 03/08/2016 15:50 [facility] MCH 31.2 26.7 - 33.3 pg 03/08/2016 15:50 [facility] MCHC 35.8 32.1 - 35.9 gm/dl 03/08/2016 15:50 [facility] RDW-CV 12.4 11.7 - 14.6 % 03/08/2016 15:50 [facility] RDW-SD 39.1 37.6 - 50.3 fl 03/08/2016 15:50 [facility] PLT 407(H) 141 - 377 K/cmm 03/08/2016 15:50 [facility] MPV 10.2 9.5 - 12.7 fl 03/08/2016 15:50 [facility] Neutrophils 71.0 % 03/08/2016 16:07 [facility] % Bands 3.0 % 03/08/2016 16:07 [facility] Lymphocytes 19.0 % 03/08/2016 16:07 [facility] % Atyp Lymphs 1.0 % 03/08/2016 16:07 [facility] Monocytes 4.0 % 03/08/2016 16:07 [facility] Eosinophils 2.0 % 03/08/2016 16:07 [facility] ABS Neutrophils 15.19(H) 2.20 - 8.85 K/cmm 03/08/2016 16:07 [facility] ABS Bands 0.64 K/cmm 03/08/2016 16:07 [facility] ABS Lymphs 4.06(H) 1.09 - 3.30 K/cmm 03/08/2016 16:07 [facility] ABS Atyp Lymphs 0.21 K/cmm 6 16:07 [facility] ABS Monocytes 0.86(H) 0.1 - 0.8 K/cmm 03/08/2016 16:07 [facility] ABS Eosinophils 0.43 0.03 - 0.61 K/cmm 03/08/2016 16:07 EDT [facility] Type of Diff: Manual 03/08/2016 16:07 EDT [facility] Comment:Performed at [place], [place] Blood specimen (specimen) BLOOD SPECIMEN / Unknown 03/08/2016 15:10 EDT 03/08/2016 15:38 EDT Scar Marquez MD PACKAGES & DNA PROBE ORDER [place] Final Result [facility] [address] [place] [address] * RAPID STREP (03/08/2016 14:40 EDT) Rapid Strep A Screen Neg 03/08/2016 15:09 EDT [facility] Comment:Performed at [place], [place] Specimen of unknown material (specimen) TOPOGRAPHY UNKNOWN / Unknown 03/08/2016 14:40 EDT 03/08/2016 14:58 EDT Scar Marquez MD MICROBIOLOGY - GENERAL ORD ERABLES Final Result Performing Organization Address [facility]/ZIP Co de Phone Number [facility] [address] [place] [address] * PHARYNGITIS CULTURE (03/08/2016 14:40 EDT) Result No group A beta streptococci isolated. Usual devin-pharyngeal candis. 03/10/2016 8:14 EDT [facility] Specimen of unknown material (specimen) ENTIRE THROAT / Unknown 03/08/2016 14:40 EDT 03/08/2016 19:07 EDT Comment:Specimen submitted o n a flocked swab. Scar Marquez MD MICROBIOLOGY - GENERAL ORD ERABLES Final Result Performing Organization Address City/[facility]/ZIP Co de Phone Number [facility] [address] [place] [address] documented in this encounter Visit Diagnoses Diagnosis [...] 03/08/2016 documented in this encounter Care Teams Community Organization Worker Relationship Specialty Start Date End Date None, Provider PCP - General 03/08/16 08/21/18 documented as of this encounter
--- OUTSIDE RECORDS SUMMARY | 2024-06-03 09:14 | XMS_ITS | Encounter Summary ---
Author Organization [facility] Address [address] [place] [address] Care Team Providers Care Structural Steel Equipment Erector Name Role Phone Nimisha Clifton SKEIN DRIER Primary Care Provider [phone] Encounter Details Date Type Department Care Team (Late st Contact Info) Description 09/03/2015 Results Only [facility] Adult Primary Care - [place] [address] [place], [place] [id number] Nimisha Clifton, SKEIN DRIER [address] [facility] [address] [place] [address] Social History Tobacco Use [...] 0.8 - 1.8 ng/dl 09/03/2015 18:43 EDT [facility] BLOOD SPECIMEN / Unknown 09/03/2015 12:33 EDT 09/03/2015 13:37 EDT us Nimisha Clifton NP CHEMISTRY & BLOOD GAS ORD ERABLES Final Result [facility] [address] [place] [address] documented in this encounter Visit Diagnoses Not on filedocumented in this encounter Care Teams Structural Steel Equipment Erector Relationship Specialty Start Date End Date Nimisha Clifton NP [address] [facility] [address] [place] [phone] PCP - General 08/28/15 03/07/16 documented as of this encounter
--- OUTSIDE RECORDS SUMMARY | 2024-06-03 09:14 | XMS_ITS | Encounter Summary ---
Author Organization [facility] Address [address] [place] [address] Care Team Providers Care Oil Well Engineer Name Role Phone Benita Shafer GUSTAVO Primary Care Provider [phone] Encounter Details Date Type Department Care Team (Late st Contact Info) Description 10/26/2018 Phlebotomy Only [address] [address] Home Help Aide, Outpatient Complication of in first trimester (Primary [...] Preg 1,531(H) <5 mIU/ml 10/26/2018 9:52 EDT [facility] Comment: Reference Range: Negative = <5 Indeterminate = 5-25 recommend repeat in 48 hours. Positive = >25 The results of this assay can be falsely lowered due to the consumption of Biotin. Blood specimen (specimen) BLOOD SPECIMEN / Unknown 10/26/2018 8:48 EDT 10/26/2018 9:00 EDT us Ana Coronado MD CHEMISTRY & BLOOD GAS CLEMENTE GOLDEN Final Result [facility] [address] [place] [address] documented in this encounter Visit Diagnoses Diagnosis Complication of in first trimester- Primary documented in this encounter Care Teams Oil Well Engineer Relationship Specialty Start Date End Date Benita Shafer NP PCP - General 08/22/18 06/17/19 documented as of this encounter
--- OUTSIDE RECORDS SUMMARY | 2024-06-03 09:14 | XMS_ITS | Encounter Summary ---
Author Organization [facility] Address [address] [place] [address] Care Team Providers Care Scene And Lighting Design Lecturer Name Role Phone None, Provider Primary Care Provider Unavailabl e Reason for Visit * Reason Onset Date Comments Follow-up 07/20/2016 Results 07/20/2016 Encounter Details Date Type Department Care Team (Late st Contact Info) Description 07/20/2016 Telephone [facility] Ur[facility] Care - [address] [id number] Moy Marquez MD [address] [place] [phone] Follow-up; Results Social History Tobacco Use [...] Encounter - Moy Marquez MD - 07/24/2016 4374 EST Called and spoke to patient follow [...] on filedocumented in this encounter Care Teams Scene And Lighting Design Lecturer Relationship Specialty Start Date End Date None, Provider PCP - General 03/08/16 08/21/18 documented as of this encounter
--- OUTSIDE RECORDS SUMMARY | 2024-06-03 09:14 | XMS_ITS | Encounter Summary ---
Author Organization [facility] Address [address] [place] [address] Care Team Providers Care Warehouse Pricing And Inventory Clerk Name Role Phone Benita Shafer GUSTAVO Primary Care Provider [phone] Encounter Details Date Type Department Care Team (Late st Contact Info) Description 10/24/2018 Phlebotomy Only [address] [address] Neon Tube Bender, Outpatient Complication of in first trimester (Primary [...] Preg 1,286(H) <5 mIU/ml 10/24/2018 15:40 EDT [facility] Comment: Reference Range: Negative = <5 Indeterminate = 5-25 recommend repeat in 48 hours. Positive = >25 The results of this assay can be falsely lowered due to the consumption of Biotin. Blood specimen (specimen) BLOOD SPECIMEN / Unknown 10/24/2018 14:42 EDT 10/24/2018 14:54 EDT us Ana Coronado MD CHEMISTRY & BLOOD GAS CLEMENTE GOLDEN Final Result [facility] [address] [place] [address] documented in this encounter Visit Diagnoses Diagnosis Complication of in first trimester- Primary documented in this encounter Care Teams Warehouse Pricing And Inventory Clerk Relationship Specialty Start Date End Date Benita Shafer NP PCP - General 08/22/18 06/17/19 documented as of this encounter
--- OUTSIDE RECORDS SUMMARY | 2024-06-03 09:14 | XMS_ITS | Encounter Summary ---
Author Organization [facility] Address [address] [place] [address] Care Team Providers Care Teaching Aide Name Role Phone Benita Shafer GUSTAVO Primary Care Provider [phone] Reason for Visit * Reason Comments Problem Encounter Details Date Type Department Care Team (Late st Contact Info) Description 10/24/2018 13:00 EDT Initial consult [facility] O[facility] Services - [address] [phone] Ana Coronado MD [address] [facility], [address] [place] [address] Complication of in first trimester [...] all of her future care here at [facility]. Is planning to see the maternal- medicine doctors for her . O: SHOE CUTTER US OB FIRST TRIMESTER TRANSVAGINAL Indication Early [...] Visualized. Embryo: Not visualized. Impression OB transvaginal [id number] 1. Small gestational sac with a yolk [...] she was told. I spent 30 minutes tetf-gh-jzln with the patient of which more than 50% of this time was spent counseling her about above documented issues and discussion. documented in this encounter Plan of Treatment Not on file documented as of this encounter Visit Diagnoses Diagnosis Complication of in first trimester- Primary documented in this encounter Care Teams Teaching Aide Relationship Specialty Start Date End Date Benita Shafer NP PCP - General 08/22/18 06/17/19 documented as of this encounter
--- NOTE | 2024-06-03 09:15 | ED.GENADUL_ITS ---
Discharge Plan Disposition Patient Disposition: Home Condition: Stable Discharge Details Clinical Impression: Vomiting, Hyperglycemia Primary Care Provider: CARLY PADGETT ED Provider: Kate Yin Home Meds and New Rx's Prescriptions: New ondansetron 4 mg tablet,disintegrating 4 mg PO Q8H PRN (Reason: nausea and vomiting) Qty: 20 0RF No Action omeprazole 40 mg capsule,delayed release(DR/EC) 40 mg PO DAILY Qty: 30 5RF nortriptyline 10 mg capsule 10 mg PO QHS gabapentin 300 mg tablet 300 - 900 mg PO DIRECTED Rx Instructions: 300 qam 1200 hs insulin glargine [Lantus Solostar U-100 Insulin] 100 unit/mL (3 mL) insulin pen 50 unit SUBCUT HS insulin aspart U-100 [Novolog FlexPen U-100 Insulin] 100 unit/mL (3 mL) insulin pen 15 unit SUBCUT TID Patient Comments: adjusted to carbs and pre-meal BS, up to 15u SUBCUTANEOUSLY THREE TIMES DAILY WITH MEALS lidocaine [Lidoderm] 5 % adhesive patch,medicated 1 patch topical DIRECTED Patient Comments: PLACE 1 PATCH ONTO THE SKIN DAILY. PATCHE(S) MAY REMAIN IN PLACE FOR UP TO 12 HOURS IN ANY 24-HOUR PERIOD duloxetine 40 mg capsule,delayed release(DR/EC) 40 mg PO DAILY Patient Comments: TAKE 1 CAPSULE BY MOUTH ONCE DAILY metoclopramide HCl [Reglan] 10 mg tablet 10 mg PO Q6H PRN Rx Instructions: take 30 minutes before meals and at bedtime (DME) Dexcom G6 Sensor Device See Rx Instructions .Route Qty: 6 0RF Rx Instructions: As directed tramadol 50 mg Tablet 50 mg PO Q6H PRN PRNQty: 30 0RF ondansetron 4 mg tablet,disintegrating 4 mg PO Q6H PRNQty: 60 0RF MediHoney (honey) 80 % gel 1 applic topical DAILY PRN Discharge Instructions Additional Instructions: Clear liquid diet and advance as tolerated when vomiting does not persist Continue Zofran and Phenergan as needed for nausea and vomiting Please make sure to check your blood sugar regularly and give yourself insulin as prescribed Avoid THC use as this likely contributes to your persistent vomiting Please follow-up with your primary care provider for ongoing issues. HPI General Date/Time Provider Initiated Documentation: 06/03/24 08:57 . Limitations to Documentation: physical limitation . Information obtained by: patient, family and old records reviewed . HPI Narrative: 39-year-old female with past medical history of diabetes, chronic vomiting presents for evaluation of persistent vomiting. She reports onset of symptoms at 1 AM last night. She had recent hospitalization for similar. She states that last night she did take her nausea medication at home without relief. She reports that she has had persistent vomiting throughout the morning. She did not take any insulin this morning. Her blood sugar was noted to be very elevated at triage. She reports generalized body pains and abdominal pain. Denies any fever. Denies any diarrhea. Related Data Home Medications ?Medication ?Instructions ?Recorded ?Confirmed blood-glucose sensor ([employer] G6 #6 ea 05/03/22 05/31/24 Sensor device) lidocaine 5 % topical patch 1 patch topical DIRECTED 05/25/22 05/31/24 (Lidoderm) tramadol 50 mg tablet 50 mg PO Q6H PRN PRN #30 tabs 08/28/22 05/31/24 omeprazole 40 mg capsule,delayed 40 mg PO DAILY #30 caps 11/09/22 05/31/24 release ondansetron 4 mg disintegrating 4 mg PO Q6H PRN #60 tabs 02/20/23 05/31/24 tablet duloxetine 40 mg capsule,delayed 40 mg PO DAILY 05/24/23 05/31/24 release gabapentin 300 mg tablet 300 - 900 mg PO DIRECTED 09/08/23 05/31/24 metoclopramide HCl 10 mg tablet 10 mg PO Q6H PRN 12/30/23 05/31/24 (Reglan) insulin aspart U-100 100 unit/mL 15 unit subcut TID 01/18/24 05/31/24 (3 mL) subcutaneous pen (Novolog FlexPen U-100 Insulin aspart) insulin glargine 100 unit/mL (3 50 unit subcut HS 01/18/24 05/31/24 mL) subcutaneous pen (Lantus Solostar U-100 Insulin) nortriptyline 10 mg capsule 10 mg PO QHS 02/27/24 05/31/24 honey 80 % topical gel (MediHoney 1 applic topical DAILY PRN 05/31/24 05/31/24 (honey)) ondansetron 4 mg disintegrating 4 mg PO Q8H PRN nausea and 06/03/24 tablet vomiting #20 tabs Previous Rx's ?Medication ?Instructions ?Recorded blood-glucose sensor (Dexcom G6 #6 ea 05/03/22 Sensor device) tramadol 50 mg tablet 50 mg PO Q6H PRN PRN #30 tabs 08/28/22 omeprazole 40 mg capsule,delayed 40 mg PO DAILY #30 caps 11/09/22 release ondansetron 4 mg disintegrating 4 mg PO Q6H PRN #60 tabs 02/20/23 tablet ondansetron 4 mg disintegrating 4 mg PO Q8H PRN nausea and 06/03/24 tablet vomiting #20 tabs Allergies Allergy/AdvReac Type Severity Reaction Status Date / Time ibuprofen (From LIFT12) Allergy Severe Anaphylaxis Verified 06/03/24 08:52 pomegranate Allergy Severe Anaphylaxis Verified 06/03/24 08:52 citalopram AdvReac Severe Bodily harm Verified 06/03/24 08:52 General Stated Complaint: [facility]Medical ARNOLD: 3 Exam Narrative Exam Narrative: Review of Systems: All systems reviewed & are unremarkable except as noted in HPI and below Actively vomiting Dry mucous membranes Tachycardic Unlabored respiratory effort clear bilaterally Nondistended abdomen generalized tenderness without focalITY Course Vital Signs Vital signs: Vital Signs Pulse 113 H 06/03/24 08:49 Respiratory Rate 18 06/03/24 08:49 Blood Pressure 145/95 H 06/03/24 08:49 Pulse Oximetry 99 06/03/24 08:49 Pulse 113 H 06/03/24 08:49 Respiratory Rate 18 06/03/24 08:49 Blood Pressure 145/95 H 06/03/24 08:49 Blood Pressure Position Sitting 06/03/24 08:49 Pulse Oximetry 99 06/03/24 08:49 Oxygen Delivery Method Room Air 06/03/24 08:49 Oxygen Flow Rate 0 06/03/24 08:49 Medical Decision Making Emergent evaluation of hyperglycemia and active vomiting. Initial differential includes DKA, cyclic vomiting, dehydration, electrolyte derangement. Patient has had several recent visits and hospitalization for this vomiting. She has not been responsive to home antiemetics. Plan for labs, IV fluid resuscitation, blood sugar control medication to control symptoms. 1110 Patient has been resting comfortably without any additional episodes of vomiting. Her electrolytes do not reveal significant derangement or significant dehydration. Her white blood cell count is elevated at 22. Likely stress shift from recurrent vomiting. She is not acidotic and I have a low suspicion for DKA despite her hyperglycemia. She has a slightly low magnesium level at 1.7 and this will be repleted orally. No LFT derangement. Will provide oral challenge to see if she tolerates and is able to be discharged home. 1205 Patient is drinking kirsten stan and having crackers without any discomfort or v omiting. Was able to ambulate to the bathroom without difficulty and is stable for discharge home at this time. Will provide a take-home bottle of ondansetron and a refill of this medication was sent to the pharmacy. She reports that she still has Phenergan at home to use. Return precautions advised. Recommend close follow-up with PCP as needed for ongoing symptoms. Quality:SDOH Health Related Social Needs: Health related social needs details none PFSH All Active Problems (Updated 06/03/24 @ 12:03 by Kate Yin MD) Hyperglycemia (Acute) Back pain (Acute) Phantom limb pain (Acute) Contracture, plantar fascia (Acute) Neuropathic ulcer of left foot with fat layer exposed (Acute) Abnormal CT of the abdomen (Acute) Gallbladder sludge (Acute) Intractable nausea and vomiting (Acute) Osteomyelitis of left foot (Acute) Corns and callosities (Acute) Chronic nausea (Acute) Vomiting (Acute) Tobacco abuse (Acute) Cannabinoid hyperemesis syndrome (Chronic) Medical History DVT (deep venous thrombosis) Gastroparesis Ulcerative esophagitis History of osteomyelitis IBS (irritable bowel syndrome) History of kidney stones Suicide attempt Anxiety and depression Diabetic neuropathy Diabetes Type 1, per patient she said she was told she had diabetes type 2. 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 Maternal Cousin Breast cancer Maternal Cousin Breast cancer Maternal Cousin Breast cancer Social History Smoking/Tobacco Use Status: Current every day Tobacco Type: cigarettes Smoking risk assessment performed?: Yes Alcohol Intake: current Alcohol Intake frequency: holidays/special occasions only Drug use: Daily Substance use type: marijuana Housing: house Do you feel safe at home: Yes Do you feel safe in your relationship?: Yes
--- OUTSIDE RECORDS SUMMARY | 2024-06-03 09:15 | XMS_ITS | Encounter Summary ---
Author Organization [facility] Address [address] [place] [address] Care Team Providers Care Flange Machine Operator Name Role Phone Unavailable Primary Care Provider Unavailabl e Encounter Details Date Type Department Care Team (Late st Contact Info) Description 09/27/2005 Before PRISM Converted Visit (Maple) [facility] - Maple conversion [address] [place] [address] Oscar Moreno MD MSc [address] [place] [address] Social History Tobacco Use Types Packs/Day Years [...] or drug addictions. She is employed at [employer]. She is single and lives at home with her family. MANAGER TRANSIT history: Menarche at age 11. She continues [...] historyof ovarian cancer. The patient is of [place] and [place] background. Review of systems: Constitutional: The patient [...] sonographic abnormality in the right breast. Diagnostics: [facility] Radiology report dated 09/21/05. Right breast [...] patient the name and number for the [facility]'s [facility] to help in herpursuit to arrange primary care. Signed by Oscar Moreno MD 10/06/2005 07:27 Nery Del Valle MD Oscar Moreno MD - Oscar Moreno MD P - KKB Job ID: [id number] Document ID: [id number] cc: Kamini Gore MD documented in this encounter Plan of Treatment Not on file documented as of this encounter Visit Diagnoses Not on filedocumented in this encounter
--- OUTSIDE RECORDS SUMMARY | 2024-06-03 09:15 | XMS_ITS | Encounter Summary ---
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 For hobbies, she enjoys [...] 5 feet 4 inches and her weight [id number]. On examination of the patients anterior chest, [...] that the procedure was done as a [id number] admission with general anesthesia and that the [...] Ross MD - Erich Ross MD A [facility] Job ID: [id number] Document ID: [id number] cc: JUNE Plata MD documented in this encounter Plan of Treatment Not on file documented as of this encounter Visit Diagnoses Not on filedocumented in this encounter
--- OUTSIDE RECORDS SUMMARY | 2024-06-03 09:15 | XMS_ITS | Encounter Summary ---
Author Organization [facility] Address [address] [place] [address] Care Team Providers Care Critical Care Transport Nurse Name Role Phone Unavailable Primary Care Provider Unavailabl e Encounter Details Date Type Department Care Team (Late st Contact Info) Description 09/21/2005 7:24 EDT - 09/21/2005 11:59 EDT Hospital Encounter [facility] [address] [place] [address] Nathaniel Argueta MD [address] [facility] [address] [place] [phone] Discharge Disposition: Auto Discharge Social History Tobacco [...] were discussed with the patient by the optimization analyst at the time of the exam. OVERALL [...] were discussed with the patient by the optimization analyst at the time of the exam. OVERALL ASSESSMENT - NEGATIVE END OF IMPRESSION us Nathaniel Karely Argueta MD IMG US ORDERABLES Final Result documented in this encounter Visit Diagnoses Not on filedocumented in this encounter
--- OUTSIDE RECORDS SUMMARY | 2024-06-03 09:15 | XMS_ITS | Encounter Summary ---
Author Organization [facility] Address [address] [place] [address] Care Team Providers Care Child Care Supervisor Name Role Phone Unavailable Primary Care Provider Unavailabl e Encounter Details Date Type Department Care Team (Latest Contact Info) Description 01/10/2006 10:03 EDT - 01/10/2006 11:59 EDT Hospital Encounter [facility] [address] [place] [address] Myles Jackson Discharge Disposition: Auto Discharge Social [...]
--- OUTSIDE RECORDS SUMMARY | 2024-06-03 09:15 | XMS_ITS | Encounter Summary ---
Author Organization [facility] Address [address] [place] [address] Care Team Providers Care Lumber Straightened Name Role Phone Unavailable Primary Care Provider Unavailabl e Encounter Details Date Type Department Care Team (Latest Contact Info) Description 08/23/2007 10:09 EDT - 08/23/2007 11:59 EDT Hospital Encounter [facility] Emergency Department - [facility] [address] [place] [address] Emergency, Default, MD Discharge Disposition: Home or [...] sinus inflammatory disease. us Subhadeep Jeff MARTÍNEZ [facility] MRI ORDERABLES Final Res ult * (ABNORMAL) GLUCOSE, SERUM (08/23/2007 14:50 EDT) Glucose, Serum 124(H) 70 - 100 mg/dl [facility] 08/23/2007 14:5 0 EDT 08/23/2007 15:01 EDT us Default Emergency MD CHEMISTRY & BLOOD GAS ORDER HAILEY Final Result Performing Organization Address [facility] de Phone Number [facility] [address] [place] [address] * PHOSPHORUS (08/23/2007 14:50 EDT) Phosphorus 3.1 2.5 - 4.5 mg/dl [facility] 08/23/2007 14:5 0 EDT 08/23/2007 15:01 EDT us Default Emergency MD CHEMISTRY & BLOOD GAS ORDER HAILEY Final Result Performing Organization Address [facility] Phone Number [facility] [address] [place] [address] * MAGNESIUM (08/23/2007 14:50 EDT) Magnesium 1.9 1.7 - 2.8 mg/dl [facility] 08/23/2007 14:5 0 EDT 08/23/2007 15:01 EDT us Default Emergency MD CHEMISTRY & BLOOD GAS ORDER HAILEY Final Result Performing Organization Address [facility] de Phone Number [facility] [address] [place] [address] * ELECTROLYTES (08/23/2007 14:50 EDT) Sodium 142 136 - 145 mEq/L [facility] Potassium 4.2 3.5 - 5.0 mEq/L [facility] Chloride 105 96 - 110 mEq/L [facility] CO2 25 24 - 32 mEq/L [facility] 08/23/2007 14:5 0 EDT 08/23/2007 15:01 EDT us Default Emergency MD CHEMISTRY & BLOOD GAS ORDER HAILEY Final Result Performing Organization Address City/[facility]/ZIP Co de Phone Number [facility] [address] [place] [address] * HOLD BLUE TOP (08/23/2007 14:50 EDT) Pathologist [facility] Hold Blue Top Sample for coagulation will be discarded after 4 hours [facility] 08/23/2007 14:5 0 EDT 08/23/2007 15:01 EDT us Default Emergency MD LAB INFO SERVICE AND SUPPOR T & PHONE RESULT Final Result Performing Organization Address [facility] Co de Phone Number [facility] [address] [place] [address] * FOLATE (08/23/2007 14:50 EDT) [facility] Folate >24.0 ng/mL [facility] Comment: Deficient: ??Less than 3.4 ng/mL Indeterminate: ??3.4-5.4 ng/mL Normal: ??Greater than 5.4 ng/mL 08/23/2007 14:5 0 EDT 08/23/2007 15:01 EDT us Default Emergency CHEMISTRY & BLOOD GAS ORDER HAILEY Final Result Performing Organization Address [facility] Co de Phone Number [facility] [address] [place] [address] * (ABNORMAL) CREATININE (08/23/2007 14:50 EDT) [facility] Creatinine 0.66(L) 0.7 - 1.5 mg/dl [facility] GFR, Calculated >60 ml/min/1.7 3m2 [facility] 08/23/2007 14:5 0 EDT 08/23/2007 15:01 EDT us Default Emergency CHEMISTRY & BLOOD GAS ORDER HAILEY Final Result Performing Organization Address City/[facility]/ZIP Co de Phone Number [facility] [address] [place] [address] * CK (08/23/2007 14:50 EDT) CK 68 30 - 135 U/L [facility] 08/23/2007 14:5 0 EDT 08/23/2007 15:01 EDT us Default Emergency MD CHEMISTRY & BLOOD GAS ORDER HAILEY Final Result [facility] [address] [place] [address] * (ABNORMAL) HEMAGRAM AND DIFFERENTIAL (08/23/2007 14:50 [...] ORDERA BLES Final Result Performing Organization Address [facility] de Phone Number [facility] [address] [place] [address] * CALCIUM (08/23/2007 14:50 EDT) Calcium 10.0 8.5 - 10.5 mg/dl [facility] Calculated Calcium 10.0 8.5 - 10.5 mg/dl [facility] 08/23/2007 14:5 0 EDT 08/23/2007 15:01 EDT us Default Emergency CHEMISTRY & BLOOD GAS ORDER HAILEY Final Result Performing Organization Address [facility] de Phone Number [facility] [address] [place] [address] * BUN (08/23/2007 14:50 EDT) BUN 12 10 - 26 mg/dl [facility] 08/23/2007 14:5 0 EDT 08/23/2007 15:01 EDT us Default Emergency CHEMISTRY & BLOOD GAS ORDER HAILEY Final Result Performing Organization Address City/[facility] de Phone Number [facility] [address] [place] [address] documented in this encounter Visit Diagnoses Not on filedocumented in this encounter
--- OUTSIDE RECORDS SUMMARY | 2024-06-03 09:15 | XMS_ITS | Encounter Summary ---
Author Organization [facility] Address [address] [place] [address] Care Team Providers Care Court Administrator Name Role Phone Unavailable Primary Care Provider Unavailabl e Encounter Details Date Type Department Care Team (Late st Contact Info) Description 09/27/2006 9:23 EDT Hospital Encounter [facility] [address] [place] [address] Fermin Lovett MD Social History Tobacco Use Types Packs/Day Years Used Date Smoking Tobacco: Every Day Cigarettes 0.5 13.6 Started: 11/10/2010 Smokeless Tobacco: Never Comments:06/13/20 actively try ing to quit about 5-8 cigs/day Alcohol Use Standard Drinks/Week Comments Yes 0 (1 standard drink = 0.6 oz pur e alcohol) rarely C Utilities Answer Date Recorded In the past 12 months has [employer], gas, oil, or water [employer] threatened to shut off services in your [...] the past 12 months has th e [employer], gas, oil, or water company threatened to [...] HAILEY Final Result [facility] [address] [place] [address] * (ABNORMAL) COMPREHENSIVE METABOLIC PANEL (09/27/2006 10:36 EDT) Pathologist [facility] Potassium 4.3 3.5 - 5.0 mEq/L [facility] [...] ORDERABLES Final Result [facility] [address] [place] [address] * (ABNORMAL) HEMAGRAM AND DIFFERENTIAL (09/27/2006 10:36 [...] RDERABLES Final Result [facility] [address] [place] [address] documented in this encounter Visit Diagnoses Not on filedocumented in this encounter Additional Health Concerns Infection Onset Date Last Indicated Resolved Time R/O COVID-19 08/04/2020 08/04/2020 08/04/2020 11:4 0 EST documented as of this encounter
--- OUTSIDE RECORDS SUMMARY | 2024-06-03 09:15 | XMS_ITS | Encounter Summary ---
Author Organization [facility] Address [address] [place] [address] Care Team Providers Care Water Treatment Plant Repairer Name Role Phone Jasmin Jara Primary Care Provider Unavail able Encounter Details Date Type Department Care Team (Late st Contact Info) Description 05/05/2010 Results Only [facility] Laboratory Services - [facility] ([facility] [address] [place], [place] [id number] Ann Booker MD [address] [place] [address] Social History Tobacco Use Types Packs/Day Years [...] ? CRISTY TALBOT ? Accession #: ? [id number] ? : ? 1985 (Age: 25) ??F [...] Final R esult [facility] [address] [place] [address] documented in this encounter Visit Diagnoses Not on filedocumented in this encounter Care Teams Water Treatment Plant Repairer Relationship Specialty Start Date End Date Jasmin Jara PA PCP - General 10/06/09 05/09/10 documented as of this encounter
--- OUTSIDE RECORDS SUMMARY | 2024-06-03 09:15 | XMS_ITS | Encounter Summary ---
Author Organization [facility] Address [address] [place] [address] Care Team Providers Care Advertising Vice President Name Role Phone None, Provider Primary Care Provider Unavailabl e Encounter Details Date Type Department Care Team ([facility] st Contact Info) Description 07/23/2015 10:49 EST - 07/23/2015 10:50 EST Hospital Encounter [address] [address] Robyn Bautista MD [address] [place] [phone] Discharge Disposition: Home or Self Care Social [...] filedocumented in this encounter Care Teams Advertising Vice President Relationship Specialty Start Date End Date None, Provider PCP - General 01/01/15 08/27/15 documented as of this encounter
--- OUTSIDE RECORDS SUMMARY | 2024-06-03 09:15 | XMS_ITS | Encounter Summary ---
Author Organization [facility] Address [address] [place] [address] Care Team Providers Care Sleeping Bag Filler Name Role Phone Unavailable Primary Care Provider Unavailabl e Encounter Details Date Type Department Care Team (Late st Contact Info) Description 03/31/2005 1:30 EDT Hospital Encounter [facility] - Other [address] [place] [address] Bhupendra Mayo MD [address] [facility] [address] [place] [phone] Social History Tobacco Use Types Packs/Day Years Used Date Smoking Tobacco: Every Day Cigarettes 0.5 13.6 Started: 11/10/2010 Smokeless Tobacco: Never Comments:06/13/20 actively try ing to quit about 5-8 cigs/day Alcohol Use Standard Drinks/Week Comments Yes 0 (1 standard drink = 0.6 oz pur e alcohol) rarely [facility] Utilities Answer Date Recorded In the past 12 months has [employer], gas, oil, or water [employer] threatened to shut off services in your [...] your living situation today? I have a [facility] place to live 04/03/2024 Think about [...] the past 12 months has th e [employer], gas, oil, or water [employer] threatened to shut off services in your [...] ORDERABLES Final Result [facility] [address] [place] [address] documented in this encounter Visit Diagnoses Not on filedocumented in this encounter Additional Health Concerns Infection Onset Date Last Indicated Resolved Time R/O COVID-19 08/04/2020 08/04/2020 08/04/2020 11:4 0 EST documented as of this encounter
--- OUTSIDE RECORDS SUMMARY | 2024-06-03 09:15 | XMS_ITS | Encounter Summary ---
Author Organization [facility] Address [address] [place] [address] Care Team Providers Care Intensive Care Specialist Name Role Phone None, Provider Primary Care Provider Unavailabl e Encounter Details Date Type Department Care Team (Late st Contact Info) Description 07/23/2015 Results Only [facility] [phone] Robyn Bautista MD [address] [place] [phone] Social History Tobacco Use Types Packs/Day [...] EST) Progesterone 9.5 ng/ml 07/23/2015 11:47 EST [facility] Comment: NON- FEMALES: follicular phase: ??<0.2-1.4 ng/mL luteal phase: 3.3-25.6 ng/ml postmenopausal: ??<0.2-0.7 ng/mL FEMALES: first trimester: 11.2-90.0 ng/ml second trimester: 25.6-89.4 ng/ml third trimester: 48.4-422.5 ng/ml ECTOPIC PREGNANCIES: consult pathologist BLOOD SPECIMEN / Unknown 07/23/2015 8:56 EST 07/23/2015 10:06 EST Robny Bautista MD CHEMISTRY & BLOOD GAS ORDERABLES Final Result [facility] [address] [place] [address] * (ABNORMAL) HCG FOR (07/23/2015 8:56 EST) Quant Beta HCG, Preg 2,093(H) <5 mIU/ml 07/23/2015 10:55 EST [facility] Comment: Reference Range: Negative = <5 Indeterminate = 5-25 recommend repeat in 48 hours. Positive = >25 BLOOD SPECIMEN / Unknown 07/23/2015 8:56 EST 07/23/2015 10:06 EST Robyn Bautista MD CHEMISTRY & BLOOD GAS ORDERABLES Final Result Performing Organization Address City/[facility]/ZIP Co de Phone Number [facility] [address] [place] [address] documented in this encounter Visit Diagnoses Not on filedocumented in this encounter Care Teams Intensive Care Specialist Relationship Specialty Start Date End Date None, Provider PCP - General 01/01/15 08/27/15 documented as of this encounter
--- OUTSIDE RECORDS SUMMARY | 2024-06-03 09:15 | XMS_ITS | Encounter Summary ---
Author Organization [facility] Address [address] [place] [address] Care Team Providers Care Partnership Marketing Manager Name Role Phone Unavailable Primary Care Provider Unavailabl e Encounter Details Date Type Department Care Team (Late st Contact Info) Description 07/28/2006 15:28 EST Hospital Encounter [facility] [address] [place] [address] Elise Vanegas MD [address] [place] [address] Social History Tobacco Use Types Packs/Day Years Used Date Smoking Tobacco: Every Day Cigarettes 0.5 13.6 Started: 11/10/2010 Smokeless Tobacco: Never Comments:06/13/20 actively try ing to quit about 5-8 cigs/day Alcohol Use Standard Drinks/Week Comments Yes 0 (1 standard drink = 0.6 oz pur e alcohol) rarely [facility] Utilities Answer Date Recorded In the past 12 months has [employer], gas, oil, or water [employer] threatened to shut off services in your [...] in the past [address] [facility], were you homeless or living [...] the past 12 months has th e [employer], gas, oil, or water company threatened to [...]
--- OUTSIDE RECORDS SUMMARY | 2024-06-03 09:15 | XMS_ITS | Encounter Summary ---
Author Organization [facility] Address [address] [place] [address] Care Team Providers Care Advertising Supervisor Name Role Phone Unavailable Primary Care Provider Unavailabl e Encounter Details Date Type Department Care Team (Late st Contact Info) Description 04/29/2006 8:02 [facility] Hospital Encounter [facility] - Maple conversion [address] [place] [address] Fermin Trejo MD Kehoe, Stephanie S [address] [place] [phone] Social History Tobacco Use Types Packs/Day Years Used Date Smoking Tobacco: Every Day Cigarettes 0.5 13.6 Started: 11/10/2010 Smokeless Tobacco: Never Comments:06/13/20 actively try ing to quit about 5-8 cigs/day Alcohol Use Standard Drinks/Week Comments Yes 0 (1 standard drink = 0.6 oz pur e alcohol) rarely [facility] Utilities Answer Date Recorded In the past 12 months has [employer], gas, oil, or water [employer] threatened to shut off services in your [...] your living situation today? I have a [facility] place to live 04/03/2024 Think about [...] the past 12 months has th e [employer], gas, oil, or water [employer] threatened to shut off services in your [...]
--- OUTSIDE RECORDS SUMMARY | 2024-06-03 09:15 | XMS_ITS | Encounter Summary ---
Author Organization [facility] Address [address] [place] [address] Care Team Providers Care Retail Support Specialist Name Role Phone None, Provider Primary Care Provider Unavailabl e Encounter Details Date Type Department Care Team ([facility] st Contact Info) Description 08/01/2015 10:45 EST - 08/01/2015 10:46 EST Hospital Encounter [address] [address] Kamini Vega MD [address] [facility] [address] [place] [phone] Discharge Disposition: Home or Self Care Social [...] filedocumented in this encounter Care Teams Retail Support Specialist Relationship Specialty Start Date End Date None, Provider PCP - General 01/01/15 08/27/15 documented as of this encounter
--- OUTSIDE RECORDS SUMMARY | 2024-06-03 09:15 | XMS_ITS | Encounter Summary ---
Author Organization [facility] Address [address] [place] [address] Care Team Providers Care Communications Equipment Operator Name Role Phone None, Provider Primary Care Provider Unavailabl e Encounter Details Date Type Department Care Team (Late st Contact Info) Description 08/01/2015 Results Only [facility] [phone] Kamini Vega MD [address] [place] [address] [address] [place] [address] Social History Tobacco Use Types [...] EST) Progesterone 9.7 ng/ml 08/01/2015 19:37 EST [facility] Comment: NON- FEMALES: follicular phase: ??<0.2-1.4 ng/mL luteal phase: 3.3-25.6 ng/ml postmenopausal: ??<0.2-0.7 ng/mL FEMALES: first trimester: 11.2-90.0 ng/ml second trimester: 25.6-89.4 ng/ml third trimester: 48.4-422.5 ng/ml ECTOPIC PREGNANCIES: consult pathologist BLOOD SPECIMEN / Unknown 08/01/2015 9:38 EST 08/01/2015 17:36 EST us Kamini Vega MD CHEMISTRY & BLOOD GAS ORDERA BLES Final Result [facility] [address] [place] [address] documented in this encounter Visit Diagnoses Not on filedocumented in this encounter Care Teams Communications Equipment Operator Relationship Specialty Start Date End Date None, Provider PCP - General 01/01/15 08/27/15 documented as of this encounter
--- OUTSIDE RECORDS SUMMARY | 2024-06-03 09:15 | XMS_ITS | Encounter Summary ---
Author Organization [facility] Address [address] [place] [address] Care Team Providers Care Buzzle Buffer Name Role Phone Unavailable Primary Care Provider Unavailabl e Encounter Details Date Type Department Care Team (Late st Contact Info) Description 08/23/2007 Office Visit [facility] - Maple conversion [address] [place] [address] Naomi Graham PA Social History Tobacco Use [...] Your Current Medications: Continue current medications. Follow-up: [facility], , [address] [place] [address], [id number]. Follow up as needed. PAYAL RODRIGUEZ, , [facility], [address] [place], [address]. Follow up. Call for the next available appointment. call dr shahid [phone] and follow up in 2-3 weeks. Understanding [...] call you tomorrow to make an appointment ([phone]) . (Electronically signed by Aubrey Diana, 08/24/2007 [...] --1023 Antonella Reynaga R.N.. NURSING PROGRESS NOTES (Beauty Operator at bedside speaking w/ pt. Warm blanket [...] 113 / 65. HR: 120. RR: 20. ([place] to bedside. Pt waiting for d/c.). --2016 [...] Patient verbalized understanding. Written instructions provided in Libyan. The patient was accompanied by director of cardiopulmonary services. The patient left the Emergency Department ambulatory. --2102 Rosa Handley R.N.. Rob Devine R.N. Student Nurse Locked/Released at 08/24/2007 15:04 by Silvia Shepard R.N. documented in this encounter Plan of Treatment Not on file documented as of this encounter Visit Diagnoses Not on filedocumented in this encounter
--- OUTSIDE RECORDS SUMMARY | 2024-06-03 09:15 | XMS_ITS | Encounter Summary ---
Author Organization [facility] Address [address] [place] [address] Care Team Providers Care Special Education Associate Name Role Phone Jasmin Jara Primary Care Provider Unavail able Encounter Details Date Type Department Care Team (Late st Contact Info) Description 10/20/2009 Abstract [facility] Cosm[facility] Surgery - [address], [address] [place], [place] [address] Jasmin Jara PA Social History Tobacco Use [...] filedocumented in this encounter Care Teams Special Education Associate Relationship Specialty Start Date End Date Jasmin Jara PA PCP - General 10/06/09 05/09/10 documented as of this encounter
--- OUTSIDE RECORDS SUMMARY | 2024-06-03 09:15 | XMS_ITS | Encounter Summary ---
Author Organization [facility] Address [address] [place] [address] Care Team Providers Care Branch Associate Teller Name Role Phone None, Provider Primary Care Provider Unavailabl e Encounter Details Date Type Department Care Team (Late st Contact Info) Description 02/11/2015 13:08 EDT - 02/11/2015 13:09 EDT Hospital Encounter [address] [address] Alaina Miranda, [address] [phone] Sunday Miranda MD [address] [place] [phone] [...] on filedocumented in this encounter Care Teams Branch Associate Teller Relationship Specialty Start Date End Date None, Provider PCP - General 01/01/15 08/27/15 documented as of this encounter
--- OUTSIDE RECORDS SUMMARY | 2024-06-03 09:15 | XMS_ITS | Encounter Summary ---
Author Organization [facility] Address [address] [place] [address] Care Team Providers Care Education Reporter Name Role Phone PeytonNimisha martinez Kelly FOIL SPOOLER Primary Care Provider [phone] Reason for Visit * Reason Comments Miscarriage Patient states.10 w eeks and last Tuesday found out no heart beat thus she states, I am having a miscarriage Vaginal bleeding X 1 weeks Lots of cramps Encounter Details Date Type Department Care Team (Late st Contact Info) Description 08/31/2015 14:05 EDT - 08/31/2015 20:53 EDT Emergency [facility] Emergency Department - [address] [phone] Sonal Rand, PA-C [address] [phone] Danny Victoria MD Macnee, Lauren K, PA-Shiva 111 [facility], Level [address] [place] [address] Emergency, MD Ekaterina Miscarriage (Primary [...] Sonal Rand - 08/31/2015 19:32 EDT Call [facility] clinic tomorrow to arrange for follow-up in the next couple of days as instructed by [facility] resident Percocet can be used for significant pain but should be used sparingly. Consider using doyo-ebk-[id number] stool softener if using this medication to [...] 8/10 and sharp. [facility] and underwent a TVUS [...] D&C. The patient was transfer to a [facility] bed and was reportedto pass a large [...] Grandmother ??? Diabetes Paternal Grandfather OB History [facility] History OB History Para Term AB SAB [...] identified. These findings are consistent with demise. [facility] consultation and followup with serial beta hCG [...] ED Notes * Charu Tipton PA - 08/31/20156 EDT Received signout from AGUILAR Rand at 8 PM. Patient status post D&C for incomplete with ketamine sedation, tolerating by mouth's, heart rates down to the 90s, stable for discharge. * Homa Goldsmith RN - 08/31/20152051 EDT Pt in NAD at time of d/c, denies pain or nausea. VSS. Reviewed d/c instructions thoroughly with pt and advised her to follow up with [facility] tomorrow. She verbalizes understanding. * Homa Goldsmith [...] history of DM, miscarriage, migraines who presents [facility] ED 10 weeks with a 6 day history of a known pole with no cardiac activity. She underwent suction aspiration for a prior miscarriage in the ED February 2015. The patient arrives [facility] ED with severe pelvic pain, [...] Heart rate is abnormal. Negative for murmur. [place] Protocol: risks and benefits discussed consent given [...] 10 weeks who gets her care at [facility] and had 10 week ultrasound 6 [...] known miscarriage at 10 weeks Discussed with [facility] who recommend repeat ultrasound Ultrasound shows evidence of incomplete Labs unremarkable. Discussed with [facility] resident at 6:15, they will perform a suction D&C here under conscious sedation 7:15 PM-procedure is completed, sounds as if patient may have aborted large amount of material justprior to suction procedure. Uncomplicated procedure otherwise She is now recovering from ketamine sedation Remains tachycardic and will continue with IV hydration, now on her third liter. Given Compazine for vomiting Discussed follow-up with [facility] resident, she is to contact [facility] clinic tomorrow morning and alexis arrange for [...] ED SEDATION PROCEDURE (09/01/2015 0:25 EDT) Narrative [facility] EKG - 09/01/2015 0:25 EDT Danny Victoria [...] rate is abnormal. ??Negative for murmur. ? [place] Protocol: risks and benefits discussed consent given [...] MD PROCEDURE/MINOR SURGICAL OR DERABLES Final Result [facility] EKG * PREPARE RED BLOOD CELLS (08/31/2015 21:22 EDT) Product Code [id number] [facility] BLOOD B[facility] Comment:E0336 -1 RED BLOOD CELLS, Leukocytes Reduced Donor Number [id number] U [facility] BLOOD BANK Unit ABO B [facility] Unit Rh NEG [facility] Unit Status RE^Released From [employer]match [facility] BLOOD [facility] Product Expiration Date [id number] [facility] BLOOD B[facility] Unit Blood Type Code 1700 [facility] BLOOD BANK Coding System [id number] [facility] 08/31/2015 21:2 2 EDT us Felicita Espinal MD BLOOD BANK ORDERABLES Final Result Performing Organization Address [facility] de Phone Number [facility] BLOOD BANK [address] [place] [address] * ANTIBODY IDENTIFICATION (08/31/2015 19:17 EDT) Antibody Identification Anti-D; patient recd RhIg [facility] BLOOD BANK 08/31/2015 19:1 7 EDT us Felicita Espinal MD BLOOD BANK TESTS Final Resu lt Performing Organization Address [facility] de Phone Number [facility] BLOOD BANK [address] [place] [address] * RAD US OB LESS THAN 14 [...] identified. These findings are consistent with demise. [facility] consultation and followup with serial beta hCG [...] identified. These findings are consistent with demise. [facility] consultation and followup with serial beta hCG is suggested. These findings were discussed with SONAL DAWSON by Dr. Zac Benjamin on 08/31/2015 5:30 PM. I have personally reviewed the images and the above interpretation and agree with the findings. us Sonal Rand PA-C IMG US ORDERABLES Final Res ult * TYPE AND SCREEN (08/31/2015 16:20 EDT) ABO B [facility] BLOOD BANK Rh Factor Negative [facility] BLOOD [facility] Antibody Screen Positive [facility] BLOOD BANK Specimen Expires: 09/03/2015 @ 23:59 [facility] BLOOD BANK Blood specimen (specimen) 08/31/2015 16:20 EDT us Felicita Espinal MD BLOOD BANK TESTS Final Resu lt Performing Organization Address City/State/[facility] Co de Phone Number [facility] BLOOD BANK [address] [place] [address] * (ABNORMAL) BASIC METABOLIC PANEL (08/31/2015 14:45 EDT) Sodium 140 136 - 145 mEq/L 08/31/2015 15:17 EDT [facility] Potassium 4.1 3.5 - 5.0 mEq/L 08/31/2015 15:17 EDT [facility] Chloride 106 96 - 110 mEq/L 08/31/2015 15:17 EDT [facility] CO2 24 24 - 32 mEq/L 08/31/2015 15:17 EDT [facility] BUN 9(L) 10 - 26 mg/dl 08/31/2015 15:17 [facility] Creatinine 0.41(L) 0.52 - 1.04 mg/dl 08/31/2015 15:17 [facility] GFR, Calculated 139 >60 ml/min/1.7 3m2 08/31/2015 15:17 [facility] Comment: eGFR calculated using CKD-EPI equation for non Americans. Multiply eGFR by 1.16 for Americans. Calcium 9.7 8.5 - 10.5 mg/dl 08/31/2015 15:17 [facility] Calculated Calcium 10.1 8.5 - 10.5 mg/dl 08/31/2015 15:17 [facility] Glucose, Serum 199(H) 70 - 100 mg/dl 08/31/2015 15:17 [facility] Fasting? Unknown 08/31/2015 15:02 [facility] Blood specimen (specimen) BLOOD SPECIMEN / Unknown 08/31/2015 14:45 EDT 08/31/2015 15:02 EDT us Sonal Rand PA-C CHEMISTRY & BLOOD GAS ORDER HAILEY Final Result [facility] [address] [place] [address] * (ABNORMAL) HEMAGRAM AND DIFFERENTIAL (08/31/2015 14:45 EDT) WBC 18.76(H) 4.0 - 12.4 K/cmm 08/31/2015 15:09 [facility] RBC 4.70 3.86 - 5.04 M/cmm 08/31/2015 15:09 [facility] Hemoglobin 14.3 11.6 - 15.2 gm/dl 08/31/2015 15:09 [facility] HCT 40.4 34.9 - 44.4 % 08/31/2015 15:09 [facility] MCV 86 81 - 98 fl 08/31/2015 15:09 [facility] MCH 30.4 26.7 - 33.3 pg 08/31/2015 15:09 [facility] MCHC 35.4 32.1 - 35.9 gm/dl 08/31/2015 15:09 [facility] RDW-CV 12.2 11.7 - 14.6 % 08/31/2015 15:09 [facility] RDW-SD 38.8 37.6 - 50.3 fl 08/31/2015 15:09 [facility] PLT 421(H) 141 - 377 K/cmm 08/31/2015 15:09 [facility] MPV 9.5 9.5 - 12.7 fl 08/31/2015 15:09 [facility] % Neutrophils 70.6 % 08/31/2015 15:09 [facility] % Lymphocytes 19.8 % 08/31/2015 15:09 [facility] % Monocytes 6.1 % 08/31/2015 15:09 [facility] % Eosinophils 2.6 % 08/31/2015 15:09 [facility] % Basophils 0.4 % 08/31/2015 15:09 [facility] % Immature Grans 0.5 % 08/31/2015 15:09 [facility] ABS Neutrophils 13.26(H) 2.20 - 8.85 K/cmm 08/31/2015 15:09 [facility] ABS Lymphs 3.71(H) 1.09 - 3.30 K/cmm 08/31/2015 15:09 [facility] ABS Monocytes 1.14(H) 0.1 - 0.8 K/cmm 08/31/2015 15:09 [facility] ABS Eosinophils 0.48 0.03 - 0.61 K/cmm 08/31/2015 15:09 [facility] ABS Basophils 0.08 0.01 - 0.11 K/cmm 08/31/2015 15:09 [facility] ABS Immature Grans 0.09(H) 0 - 0.06 K/cmm 08/31/2015 15:09 [facility] Type of Diff: Automated 08/31/2015 15:09 EDT [facility] Blood specimen (specimen) BLOOD SPECIMEN / Unknown 08/31/2015 14:45 EDT 08/31/2015 15:02 EDT us Sonal Rand PA-C PACKAGES & DNA PROBE ORDERA BLES Final Result [facility] [address] [place] [address] documented in this encounter Visit Diagnoses Diagnosis [...] 08/31/2015 documented in this encounter Care Teams Education Reporter Relationship Specialty Start Date End Date Nimisha Clifton NP 1 [facility] Level [address] [place] [address] PCP - General 08/28/15 03/07/16 documented as of this encounter
--- OUTSIDE RECORDS SUMMARY | 2024-06-03 09:15 | XMS_ITS | Encounter Summary ---
Author Organization [facility] Address [address] [place] [address] Care Team Providers Care Employee Services Manager Name Role Phone None, Provider Primary [...] 15:27 EDT - 02/24/2015 20:58 EDT Emergency [facility] Emergency Department - [address] [address] Sonal Rand, MARY [address] [phone] Broderick Singh MD [address] [place] [address], [address] [place] [address] Chilo Carrillo MD Emergency, MD [...] 20:40 EDT Rest Lots liquids See the electrical lineman doctor in 2 days as planned Return [...] test on 01/19 and positive UPT at [facility] the next week. She initiated care at [facility] 2 weeks ago and was told that the fetus had no heartbeat but was measuring 7 weeks. She wanted a second opinion so she went to [facility] on 02/14 where she was told that [...] Grandmother ??? Diabetes Paternal Grandfather OB History WHEELCHAIR VAN OPERATOR FIRST RESPONDER History OB History Para Term AB SAB [...] examined with Dr. Michael Emanuel MD PGY-1 [facility] Obstetrics and Gynecology Pager: [phone] Brii Austin MD 02/24/2015 20:22 Attending addendum: [...] This RN present for pt's D+C by WHEELCHAIR VAN OPERATOR FIRST RESPONDER. Pt monitored for 1 hr s/p procedure. [...] ER. Pt to f/u with PCP and WHEELCHAIR VAN OPERATOR FIRST RESPONDER. * Carline Luna RN - 02/24/2015 1921 EDT Assumed care of pt. Pt tearful, family at bedside. VSS. Pt with no c/o pain or nausea at this time.Apical reg, LCTA, RR even/reg. BS present. Cap refill <2 secs. Call calloway within reach. No statedneeds at this time. * Doris Balderas RN - 02/24/2015 1844 EDT Director Sales And Marketing surgery services at bedside now discussing findings and plan of care. * Doris Balderas RN - 02/24/2015 1757 EDT Taken for US. * Doris Balderas RN - 02/24/2015 1732 EDT Pad change x 2 this hour for large amount vaginal bleeding with large clots. Director Sales And Marketing services in to evaluate-at bedside now. * [...] pending. ivf's infusing now. S/o at bedside. Director Sales And Marketing at bedside now. * Broderick Singh MD [...] ago. At that time, she visited her bioanalyst and was informed that she was 7 weeks , and that her baby had a no heartbeat. For a second evaluation at that time, the patient visited [facility], and was informed that her baby's heart beat was slow. The patient reports that spotting began again 1 week ago (Tuesday) at which time she returned to [facility] and was informed that her baby did [...] TYPE AND SCREEN Final Number for problems [id number] (ED) Final BLOOD BANK SPECIMEN HOLD Hold BB Spec will exp at 23:59, 3 days from collect date Final TYPE AND SCREEN ABO B Final Rh Factor Negative Final Antibody Screen Positive Final Specimen Expires: 02/27/2015 @ 23:59 Final DIRECT ANTIGLOBULIN TEST LIZZIE Negative Final PREPARE RED BLOOD CELLS Product Code E0336 -1 RED BLOOD CELLS, Leukocytes Reduced Final Donor Number [id number] Final Unit ABO B Final Unit Rh [...] ordered. Seen in the ED by the WHEELCHAIR VAN OPERATOR FIRST RESPONDER service. Care is signed out to Dr. Carrillo at 17:10 with WHEELCHAIR VAN OPERATOR FIRST RESPONDER evaluation inprogress. ASSESSMENT AND PLAN Final diagnoses: [...] E0336 -1 RED BLOOD CELLS, Leukocytes Reduced [facility] Donor Number [id number] [facility] Unit ABO B [facility] Unit Rh NEG [facility] Cross Match Interp Compatible [facility] Unit Status Released From Crossmatch [facility] 02/24/2015 18:4 7 EDT us Chilo Carrillo MD BLOOD BANK ORDERABLES Final Result [facility] [address] [facility] [place] [address] * DIRECT ANTIGLOBULIN TEST (02/24/2015 18:47 EDT) LIZZIE Negative [facility] 02/24/2015 18:4 7 EDT us Chilo Carrillo MD BLOOD BANK TESTS Final Resu lt Performing Organization Address [facility] Co de Phone Number [facility] [address] [place] [address] * ANTIBODY IDENTIFICATION (02/24/2015 18:45 EDT) Antibody Identification Anti-D; patient recd RhIg [facility] 02/24/2015 18:4 5 EDT us Chilo Carrillo MD BLOOD BANK TESTS Final Resu lt Performing Organization Address [facility] de Phone Number [facility] [address] [facility] [place] [address] * RAD US PELVIS, TRANSVAGINAL, AND LIMITED DOPPLER (02/24/2015 18:21 EDT) Anatomical Region Laterality Modality Other 02/24/2015 18:2 1 EDT 02/25/2015 8:55 EDT Narrative 02/25/2015 8:55 EDT RAD US PELVIS, TRANSVAGINAL, AND LIMITED DOPPLER ??02/24/2015 6:21 PM Signs and Symptoms/Comments: ??reported IUP per electrical lineman which was then found in past wk to be non viable, est at 9 wks and now with increased bleeding and abd pain ??US requested by electrical lineman Comparison: Pelvic ultrasound October 2006 Technique: Grayscale [...] Dr. Cam discussed these findings with CHILO ACRRILLO MD at the time of dictation. I have personally reviewed the images and the above interpretation and agree with the findings. Procedure Note Erick Baltazar MD - 02/25/2015 RAD US PELVIS, TRANSVAGINAL, AND LIMITED DOPPLER 02/24/2015 6:21 PM Signs and Symptoms/Comments: reported IUP per electrical lineman which was then found in past wk to be non viable, est at 9 wks and now with increased bleeding and abd pain US requested by electrical lineman Comparison: Pelvic ultrasound October 2006 Technique: Grayscale [...] AND SCREEN (02/24/2015 17:30 EDT) ABO B [facility] Rh Factor Negative [facility] Antibody Screen Positive [facility] Specimen Expires: 02/27/2015 @ 23:59 [facility] Blood specimen (specimen) 02/24/2015 17:30 EDT us Chilo Carrillo MD BLOOD BANK TESTS Final Resu lt Performing Organization Address City/[facility]/ZIP Co de Phone Number [facility] [address] [place] [address] * ED/WICC ADD-ON (02/24/2015 17:30 EDT) Tests to be added TYPE AND SCREEN 02/24/2015 17:28 EDT [facility] Number for problems [id number] (ED) 02/24/2015 17:28 EDT [facility] TOPOGRAPHY UNKNOWN / Unknown 02/24/2015 17:30 EDT 02/24/2015 18:01 EDT us Chilo Carrillo MD HEMATOLOGY & PF4 ORDERABLES Final Result [facility] [address] [place] [address] * HOLD GREEN TOP (02/24/2015 16:00 EDT) Hold Green Top Hold for further testing. Specimen will be held for 5 days. 02/24/2015 16:18 EDT [facility] Blood specimen (specimen) BLOOD SPECIMEN / Unknown 02/24/2015 16:00 EDT 02/24/2015 16:07 EDT us Sonal A Giorgi PA-C LAB INFO SERVICE AND SUPPOR T & PHONE RESULT Final Result Performing Organization Address City/[facility]/ZIP Co de Phone Number [facility] [address] [place] [address] * BLOOD BANK SPECIMEN HOLD (02/24/2015 16:00 EDT) Hold BB Spec will exp at 23:59, 3 days from collect date [facility] Blood specimen (specimen) 02/24/2015 16:00 EDT us Sonal A Giorgi PA-C BLOOD BANK TESTS Final Resu lt Performing Organization Address [facility]/ZIP Co de Phone Number [facility] [address] [place] [address]. [place] [address] * HOLD SST (02/24/2015 16:00 EDT) Hold SST Hold for further testing. Specimen will be held for 5 days. 02/24/2015 16:18 EDT [facility] Blood specimen (specimen) BLOOD SPECIMEN / Unknown 02/24/2015 16:00 EDT 02/24/2015 16:07 EDT us Sonal A Giorgi PA-C LAB INFO SERVICE AND SUPPOR T & PHONE RESULT Final Result Performing Organization Address [facility] Co de Phone Number [facility] [address] [place] [address] * HOLD BLUE TOP (02/24/2015 16:00 EDT) Hold Blue Top Sample for coagulation will be discarded after 4 hours 02/24/2015 16:20 EDT [facility] Blood specimen (specimen) BLOOD SPECIMEN / Unknown 02/24/2015 16:00 EDT 02/24/2015 16:07 EDT us Sonal A Giorgi PA-C LAB INFO SERVICE AND SUPPOR T & PHONE RESULT Final Result Performing Organization Address City/[facility]/ZIP Co de Phone Number [facility] [address] [place] [address] * (ABNORMAL) HEMAGRAM AND DIFFERENTIAL (02/24/2015 16:00 EDT) WBC 17.81(H) 4.0 - 12.4 K/cmm 02/24/2015 16:11 [facility] RBC 4.36 3.86 - 5.04 M/cmm 02/24/2015 16:11 [facility] Hemoglobin 13.6 11.6 - 15.2 gm/dl 02/24/2015 16:11 [facility] HCT 39.5 34.9 - 44.4 % 02/24/2015 16:11 [facility] MCV 91 81 - 98 fl 02/24/2015 16:11 [facility] MCH 31.1 26.7 - 33.3 pg 02/24/2015 16:11 [facility] MCHC 34.3 32.1 - 35.9 gm/dl 02/24/2015 16:11 [facility] RDW-CV 12.6 11.7 - 14.6 % 02/24/2015 16:11 [facility] RDW-SD 39.8 37.6 - 50.3 fl 02/24/2015 16:11 [facility] PLT 383(H) 141 - 320 K/cmm 02/24/2015 16:11 [facility] MPV 8.0 7.5 - 11.2 fl 02/24/2015 16:11 [facility] Neutrophils 68.0 45.5 - 79.7 % 02/24/2015 16:54 [facility] Lymphocytes 21.0 15.0 - 46.8 % 02/24/2015 16:54 [facility] % Atyp Lymphs 2.0 % 02/24/2015 16:54 [facility] Monocytes 6.0 1.8 - 12.0 % 02/24/2015 16:54 [facility] Eosinophils 2.0 0.6 - 6.9 % 02/24/2015 16:54 [facility] Basophils 1.0 0.2 - 1.4 % 02/24/2015 16:54 EDT [facility] ABS Neutrophils 12.10(H) 2.20 - 8.85 K/cmm 02/24/2015 16:54 EDT [facility] ABS Lymphs 3.74(H) 1.09 - 3.30 K/cmm 02/24/2015 16:54 EDT [facility] ABS Atyp Lymphs 0.36 K/cmm 5 16:54 T [facility] ABS Monocytes 1.07(H) 0.1 - 0.8 K/cmm 02/24/2015 16:54 T [facility] ABS Eosinophils 0.36 0.03 - 0.61 K/cmm 02/24/2015 16:54 T [facility] ABS Basophils 0.18(H) 0.01 - 0.11 K/cmm 02/24/2015 16:54 T [facility] Vacuolization Present 02/24/2015 16:54 T [facility] Type of Diff: Manual 02/24/2015 16:54 [facility] Blood specimen (specimen) BLOOD SPECIMEN / Unknown 02/24/2015 16:00 EDT 02/24/2015 16:07 EDT us Sonal Rand PA-C PACKAGES & DNA PROBE ORDERA BLES Final Result Performing Organization Address City/State/[facility] Co de Phone Number [facility] [address] [place] [address] * SURGICAL PATHOLOGY (02/24/2015 9:01 EDT) Pathology Report: SURGICAL PATHOLOGY REPORT Reports generated via electronic interface contain original data; however they are lacking the format of the original report. Caution should be taken when reading/interpret ing unformatted reports. Name: ? CRISTY MONTELONGO ? Accession #: ? [id number] ? : ? 1985 (Age: 29) ??F [...] Cruz 02/25/2015 11:33 AM End of Report [facility] 02/24/2015 9:01 EDT 02/24/2015 9:01 EDT us Sonal Rand PA-C PATHOLOGY ORDERABLES Final Result [facility] [address] [place] [address] documented in this encounter Visit Diagnoses Diagnosis [...] 02/24/2015 documented in this encounter Care Teams Employee Services Manager Relationship Specialty Start Date End Date None, Provider PCP - General 01/01/15 08/27/15 documented as of this encounter
--- OUTSIDE RECORDS SUMMARY | 2024-06-03 09:15 | XMS_ITS | Encounter Summary ---
Author Organization [facility] Address [address] [place] [address] Care Team Providers Care Executive Producer Name Role Phone Madeline Caputo Primary Care Provider [phone] Reason for Visit * Reason Comments Blood Sugar Problem NPD Encounter Details Date Type Department Care Team (Latest Contact Info) Description 05/12/2010 15:00 EST Office Visit [facility] Endocrinology - [facility] [address] [place], [place] [phone] Fermin Srinivasan MD [address] [place] [address] [address] [place] [address] Diabetes (CMS-HCC) ([facility]) (Primary Dx); Obesity, unspecified Social History [...] - 05/12/2010 17:03 EST Recent A1c from [facility] 7.7%. Goal will be less [...] other times similar or higher. Went to [facility] ER 05/10/10 because of BG [...] 4 siblings, knows about 2, noDM. 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 Very unusual alcohol Activity - [...] tryand work on lifestyle. Seeing dietition ion [facility] next week. Will come back in June. If continues with inadequate control, will consider GLP-1 receptor agonist versus basal insulin. Would not suggest TZD, as potential for weight gain in her is considerable. Plan: Recent A1c from [facility] 7.7%. Goal will be less [...] A1C Point of Care Testing Routine Diabetes ([facility]) ([facility]) Ordered: 05/12/2010 documented as of this encounter Visit Diagnoses Diagnosis Diabetes ([facility])- Primary Type II or unspecified type diabetes mellitus without mention of complication, not stated as uncontrolled Obesity, unspecified documented in this encounter Care Teams Executive Producer Relationship Specialty Start Date End Date Madeline Caputo PA [address] [place] [address] PCP - General 05/10/10 12/31/14 documented as of this encounter
--- OUTSIDE RECORDS SUMMARY | 2024-06-03 09:15 | XMS_ITS | Encounter Summary ---
Author Organization [facility] Address [address] [place] [address] Care Team Providers Care Childcare Center Administrator Name Role Phone Unavailable Primary Care Provider Unavailabl e Encounter Details Date Type Department Care Team (Latest Contact Info) Description 01/24/2006 14:06 EDT Hospital Encounter [facility] - Maple conversion [address] [place] [address] Felix Merritt III, MD [address] [place] [address] Discharge Disposition: Auto Discharge Social History Tobacco [...] ES Final Result [facility] [address] [place] [address] * (ABNORMAL) COMPREHENSIVE METABOLIC PANEL (01/24/2006 16:03 EDT) [facility] Potassium 4.0 3.5 - 5.0 mEq/L [facility] [...] [facility] GFR, Calculated >60 ml/min/1.7 3m2 [facility] BUN 9(L) 10 - 26 [...] ES Final Result [facility] [address] [place] [address] * (ABNORMAL) HEMAGRAM (01/24/2006 16:03 EDT) WBC [...] Fi nal Result [facility] [address] [place] [address] documented in this encounter Visit Diagnoses Not on filedocumented in this encounter
--- OUTSIDE RECORDS SUMMARY | 2024-06-03 09:15 | XMS_ITS | Encounter Summary ---
Author Organization [facility] Address [address] [place] [address] Care Team Providers Care National Account Manager Name Role Phone Madeline Caputo Primary Care Provider [phone] Reason for Visit * Reason Comments Hyperglycemia Pt reports 335 FS at 2100, just dx with DM type 2 after thanksgiving started on metformin. Pt reports BUSH and generally not feeling well Encounter Details Date Type Department Care Team (Late st Contact Info) Description 05/10/2010 22:38 EST - 05/11/2010 0:[address] [facility] Emergency Department - [address] [phone] Maj Almanza MD [address] [place] [phone] Doris Moreno MD [address] [place] [address], [address] [place] [phone] EmergencyEkaterina MD Hyperglycemia; Bullous myringitis; Bronchitis; Headache [...] 23:40 EST Call endocrine clinic tomorrow at [phone], let them know you were seen in ED and Dr. Mera approved you being seen for expedited New Diabetes appt Continue weight loss efforts Zithromax as prescribed. For second opinion re headaches : call Dr. Poe [phone] For appt. Please return if worsening symptoms or any new concerns. * Attachments The following attachments cannot be sent through Care Everywhere. * BRONCHITIS IN ADULTS: AFTER YOUR VISIT ([facility] [facility]) * DIABETES CARE WHEN YOU ARE SICK: AFTER YOUR VISIT ([facility] [facility]) * DIABETES DIET GUIDELINES: AFTER YOUR VISIT ([facility] [facility]) documented in this encounter Medications at Time [...] doctors office and was referred to the [place] ED, but pt understood that they refused to see me as they needed to talk to her doctor first. Therefore, she came to [place]. Pt notes recent nasal congestion, cough, and [...] * ELEVATED GLUCOSE (05/10/2010 22:53 EST) Pathologist [facility] Elevated Glucose Screening glucose greater than 180 mg/dl. Please order follow up hemoglobin A1c. [facility] 05/10/2010 22:5 3 EST 05/10/2010 23:36 EST Maj Archie [facility] CHEMISTRY & BLOOD GAS ORDERABLES Final Result Performing Organization Address City/[facility]/ZIP Co de Phone Number [facility] [address] [place] [address] * (ABNORMAL) HEMAGRAM AND DIFFERENTIAL (05/10/2010 22:53 EST) Pathologist [facility] WBC 11.56 4.0 - 12.4 K/cmm [facility] [...] PROBE ORDERABLES Final Result Performing Organization Address [facility] de Phone Number [facility] [address] [place] [address] * (ABNORMAL) SCREENING GLUCOSE (05/10/2010 22:53 EST) Glucose, Screening 238(H) 70 - 100 mg/dl [facility] Blood specimen (specimen) 05/10/2010 22:53 EST 05/10/2010 23:36 EST Maj Archie MARTÍNEZ CHEMISTRY & BLOOD GAS ORDERABLES Final Result Performing Organization Address [facility] de Phone Number [facility] [address] [place] [address] * CREATININE (05/10/2010 22:53 EST) Creatinine 0.80 0.7 - 1.5 mg/dl [facility] GFR, Calculated >60 ml/min/1.7 3m2 [facility] Blood specimen (specimen) 05/10/2010 22:53 EST 05/10/2010 23:36 EST us Maj Archie MARTÍNEZ CHEMISTRY & BLOOD GAS ORDERABLES Final Result Performing Organization Address [facility] de Phone Number [facility] [address] [place] [address] * BUN (05/10/2010 22:53 EST) BUN 12 10 - 26 mg/dl [facility] Blood specimen (specimen) 05/10/2010 22:53 EST 05/10/2010 23:36 EST us Maj Archie MARTÍNEZ CHEMISTRY & BLOOD GAS ORDERABLES Final Result Performing Organization Address [facility]/[place] de Phone Number [facility] [address] [place] [address] * ELECTROLYTES (05/10/2010 22:53 EST) Sodium 138 136 - 145 mEq/L [facility] Potassium 4.4 3.5 - 5.0 mEq/L [facility] Chloride 98 96 - 110 mEq/L [facility] CO2 29 24 - 32 mEq/L [facility] Blood specimen (specimen) 05/10/2010 22:53 EST 05/10/2010 23:36 EST Maj Archie MARTÍNEZ CHEMISTRY & BLOOD GAS ORDERABLES Final Result Performing Organization Address [facility] Phone Number [facility] [address] [place] [address] documented in this encounter Visit Diagnoses Diagnosis [...] 05/10 documented in this encounter Care Teams National Account Manager Relationship Specialty Start Date End Date Madeline Caputo PA [address] [place] [place] [address] PCP - General 05/10/10 12/31/14 documented as of this encounter
--- OUTSIDE RECORDS SUMMARY | 2024-06-03 09:15 | XMS_ITS | Encounter Summary ---
Author Organization [facility] Address [address] [place] [address] Care Team Providers Care Storekeeper Steward Name Role Phone Unavailable Primary Care Provider Unavailabl e Encounter Details Date Type Department Care Team (Late st Contact Info) Description 05/27/2006 9:[address] [facility] - Maple conversion [address] [place] [address] Fermin Lovett MD Social History Tobacco Use Types Packs/Day Years Used Date Smoking Tobacco: Every Day Cigarettes 0.5 13.6 Started: 11/10/2010 Smokeless Tobacco: Never Comments:06/13/20 actively try ing to quit about 5-8 cigs/day Alcohol Use Standard Drinks/Week Comments Yes 0 (1 standard drink = 0.6 oz pur e alcohol) rarely C Utilities Answer Date Recorded In the past 12 months has [employer], gas, oil, or water company threatened to [...]
--- OUTSIDE RECORDS SUMMARY | 2024-06-03 09:15 | XMS_ITS | Encounter Summary ---
Author Organization [facility] Address [address] [place] [address] Care Team Providers Care Soft Work Wrapper Examiner Name Role Phone Jasmin Jaar Primary Care Provider Unavail Trinity Wilson MD Primary Care Provider [phone] Encounter Details Date Type Department Care Team (Late st Contact Info) Description 08/19/2004 Results Only [facility] [address] [address] Rosalio Bueno MD [address] [phone] Social History Tobacco Use Types [...] ORDERAB LES Final Result Performing Organization Address [facility] Co de Phone Number [facility] [address] [place] [address] * (ABNORMAL) HEMAGRAM (08/19/2004 15:37 EST) WBC [...] ORDERABLES F inal Result Performing Organization Address City/[facility] Co de Phone Number [facility] [address] [place] [address] documented in this encounter Visit Diagnoses Not on filedocumented in this encounter Care Teams Soft Work Wrapper Examiner Relationship Specialty Start Date End Date Jasmin Jara PA PCP - General 10/06/09 05/09/10 Trinity Samaniego MD [address] [place] [phone] PCP - General 09/16/09 10/05/09 documented as of this encounter
--- OUTSIDE RECORDS SUMMARY | 2024-06-03 09:15 | XMS_ITS | Encounter Summary ---
Author Organization [facility] Address [address] [place] [address] Care Team Providers Care Vp Of Customer Experience Strategy Name Role Phone None, Provider Primary Care Provider Unavailabl e Encounter Details Date Type Department Care Team (Late st Contact Info) Description 02/11/2015 Results Only [facility]- PRISM [phone] [address] [address] Social History Tobacco Use Types [...] EDT) Antibody Screen Neg 02/11/2015 22:52 EDT [facility] BLOOD SPECIMEN / Unknown 02/11/2015 14:34 EDT 02/11/2015 20:49 EDT Alaina Miranda [facility] BLOOD BANK TESTS Final Result Performing Organization Address City/[facility]/ZIP Co de Phone Number [facility] [address] [place] [address] * BLOOD TYPE FOR PRENATALS- AMBULATORY (02/11/2015 14:34 EDT) ABO and Rh Type B NEG 02/11/2015 22:52 EDT [facility] BLOOD SPECIMEN / Unknown 02/11/2015 14:34 EDT 02/11/2015 20:49 EDT Alaina Miranda [facility] BLOOD BANK ORDERABLES Final Res ult Performing Organization Address [facility] Co de Phone Number [facility] [address] [place] [address] documented in this encounter Visit Diagnoses Not on filedocumented in this encounter Care Teams Vp Of Customer Experience Strategy Relationship Specialty Start Date End Date None, Provider PCP - General 01/01/15 08/27/15 documented as of this encounter
--- OUTSIDE RECORDS SUMMARY | 2024-06-03 09:15 | XMS_ITS | Encounter Summary ---
Author Organization [facility] Address [address] [place] [address] Care Team Providers Care Timber Framer Helper Name Role Phone Unavailable Primary Care Provider Unavailabl e Encounter Details Date Type Department Care Team (Latest Contact Info) Description 06/22/2006 14:50 EST Hospital Encounter [facility] - Other [address] [place] [address] Broderick Ross MD Discharge Disposition: Auto Discharge [...]
--- OUTSIDE RECORDS SUMMARY | 2024-06-03 09:15 | XMS_ITS | Encounter Summary ---
Author Organization [facility] Address [address] [place] [address] Care Team Providers Care Wash Worker Name Role Phone Unavailable Primary Care Provider Unavailabl e Encounter Details Date Type Department Care Team (Latest Contact Info) Description 10/11/2006 10:03 EDT - 10/11/2006 11:59 EDT Hospital Encounter [address] [address] Fermin Lovett MD Discharge Disposition: Auto Discharge [...] Impression: Normal pelvic ultrasound Fermin Lovett [place] [facility] [place] Penny islas Result documented in this encounter Visit Diagnoses Not on filedocumented in this encounter
--- OUTSIDE RECORDS SUMMARY | 2024-06-03 09:15 | XMS_ITS | Encounter Summary ---
Author Organization [facility] Address [address] [place] [address] Care Team Providers Care Roughing Mill Operator Name Role Phone None, Provider Primary Care Provider Unavailabl e Reason for Visit * Reason Comments Foot Injury States a log fell on her left foot about 1 hour ago while swimming. + pain, swelling, tingling, and numbness. Unable to walk on foot. No treatment SUPERVISOR UNLOADING. 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 Encounter Details Date Type Department Care Team (Late st Contact Info) Description 01/01/2015 0:26 EDT - 01/01/2015 2:25 EDT Emergency [facility] Emergency Department - [address] [phone] Kylah Whitaker PA-C [address] [place] [address], [address] [place] [address] Emergency, MD Ekaterina Contusion of [...] be sent through Care Everywhere. * BRUISES (LATVIAN) documented in this encounter Medications at Time [...] Unable to walk on foot. No treatment SUPERVISOR UNLOADING. 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 HPI [...] - Abnormal Glucose, Fingerstick 152 (*) Final Patternmaker Metal ID [id number] Final POCT GLUCOSE Procedures ED COURSE A [...] 70 - 100 mg/dl 01/01/2015 0:56 EDT [facility] LABORATORY SERVICES Patternmaker Metal ID [id number] 01/01/2015 0:56 EDT [facility] Comment:[facility] SPE[facility] / Unknown 01/01/2015 0:53 EDT 01/01/2015 0:56 EDT Provider Unknown CHEMISTRY & BLOOD GAS ORDERA BLES Final Result [facility] [address] [place] [address] documented in this encounter Visit Diagnoses Diagnosis [...] 01/01/2015 documented in this encounter Care Teams Roughing Mill Operator Relationship Specialty Start Date End Date None, Provider PCP - General 01/01/15 08/27/15 documented as of this encounter
--- OUTSIDE RECORDS SUMMARY | 2024-06-03 09:15 | XMS_ITS | Encounter Summary ---
Author Organization [facility] Address [address] [place] [address] Care Team Providers Care Refuse Collector Name Role Phone Unavailable Primary Care Provider Unavailabl e Encounter Details Date Type Department Care Team (Late st Contact Info) Description 03/30/2006 7:53 EDT Hospital Encounter [facility] [address] [place] [address] Unknown, Provider, Social History Tobacco Use Types Packs/Day Years Used Date Smoking Tobacco: Every Day Cigarettes 0.5 13.6 Started: 11/10/2010 Smokeless Tobacco: Never Comments:06/13/20 actively try ing to quit about 5-8 cigs/day Alcohol Use Standard Drinks/Week Comments Yes 0 (1 standard drink = 0.6 oz pur e alcohol) rarely C Utilities Answer Date Recorded In the past 12 months has [employer], gas, oil, or water company threatened to [...] any time in the past 12 m [facility], were you homeless or living in [...]
--- OUTSIDE RECORDS SUMMARY | 2024-06-03 09:15 | XMS_ITS | Encounter Summary ---
Author Organization [facility] Address [address] [place] [address] Care Team Providers Care Media Manager Name Role Phone Unavailable Primary Care Provider Unavailabl e Encounter Details Date Type Department Care Team (Late st Contact Info) Description 12/22/2005 11:00 EDT Hospital Encounter [facility] - Maple conversion [address] [place] [address] Fermin Lovett MD Social History Tobacco Use Types Packs/Day Years Used Date Smoking Tobacco: Every Day Cigarettes 0.5 13.6 Started: 11/10/2010 Smokeless Tobacco: Never Comments:06/13/20 actively try ing to quit about 5-8 cigs/day Alcohol Use Standard Drinks/Week Comments Yes 0 (1 standard drink = 0.6 oz pur e alcohol) rarely C Utilities Answer Date Recorded In the past 12 months has [employer], gas, oil, or water [employer] threatened to shut off services in your [...]
--- OUTSIDE RECORDS SUMMARY | 2024-06-03 09:15 | XMS_ITS | Encounter Summary ---
Author Organization [facility] Address [address] [place] [address] Care Team Providers Care Food Chemist Name Role Phone Unavailable Primary Care Provider Unavailabl e Encounter Details Date Type Department Care Team (Late st Contact Info) Description 03/30/2006 Before PRISM Converted Visit (Maple) [facility] - Maple conversion [address] [place] [address] Angélica Hernandez CFNP Social History Tobacco Use Types Packs/Day Years Used Date Smoking Tobacco: Never Assessed Comments Unknown Sex and Gender Information Value Date Recorded Sex Assigned at Not on file Legal Sex Female 17:41 EST Gender Identity Female 06/18/2019 8:54 EST Sexual Orientation Not on file documented as of this encounter Progress Notes * Ra, Conv Utility Pipe Layer - 05/31/2009 0141 EST DIVISION OF SURGICAL ONCOLOGY - [facility] March 30, 2006 Broderick Ross M.D. [facility] [address] [place] [address], [address] [place] [address] Dear Doctor Vandana: Thank you in advance [...] - JUNE Plata Bhupendra addison Job ID: [id number] Document ID: [id number] cc: Broderick Ross MD JUNE Calzada Bhupendra addison Job ID: [id number] Document ID: [id number] cc: Broderick Ross MD * Dayron Knapp Utility Pipe Layer - 05/31/2009 0140 EST OF SURGICAL ONCOLOGY [...] from the paternal side. Ethnic background is Turkish and Sami. WIRE REPAIRER history: Menarche at age 11. She is [...] - JUNE Plata Bhupendra addison Job ID: [id number] Document ID: [id number] cc: Kamini Gore MD - JUNE Hernandez Bhupendra addison Job ID: [id number] Document ID: [id number] cc: Kamini Gore MD documented in this encounter Plan of Treatment Not on file documented as of this encounter Visit Diagnoses Not on filedocumented in this encounter
--- OUTSIDE RECORDS SUMMARY | 2024-06-03 09:15 | XMS_ITS | Encounter Summary ---
Author Organization [facility] Address [address] [place] [address] Care Team Providers Care Gas Brazer Name Role Phone Trinity Samaniego MD Primary Care Provider Encounter Details Date Type Department Care Team (Late st Contact Info) Description 09/18/[address] [address] Trinity Samaniego MD [address] [address] Obesity, unspecified; Migraine NOS/not intrcbl [...] migrainosus documented in this encounter Care Teams Gas Brazer Relationship Specialty Start Date End Date Trinity Samaniego MD [address] [address] PCP - General 09/16/09 10/05/09 documented as of this encounter
--- OUTSIDE RECORDS SUMMARY | 2024-06-03 09:15 | XMS_ITS | Encounter Summary ---
Author Organization [facility] Address [address] [place] [address] Care Team Providers Care Public Welfare Director Name Role Phone Unavailable Primary Care Provider Unavailabl e Encounter Details Date Type Department Care Team (Latest Contact Info) Description 12/02/2005 17:43 EDT Hospital Encounter [facility] [address] [place] [address] Villa Rodriguez MD Discharge Disposition: Auto Discharge [...]
--- OUTSIDE RECORDS SUMMARY | 2024-06-03 09:15 | XMS_ITS | Encounter Summary ---
Author Organization [facility] Address [address] [place] [address] Care Team Providers Care Features Reporter Name Role Phone None, Provider Primary Care Provider Unavailabl e Encounter Details Date Type Department Care Team (Late st Contact Info) Description 08/22/2015 Documentation Visit [facility] Obstetrics & Midwifery - [address] [phone] Broderick Wolff MD [address] [facility], [address] [place] [address] Social History Tobacco Use Types [...] on filedocumented in this encounter Care Teams Features Reporter Relationship Specialty Start Date End Date None, Provider PCP - General 01/01/15 08/27/15 documented as of this encounter
--- OUTSIDE RECORDS SUMMARY | 2024-06-03 09:15 | XMS_ITS | Encounter Summary ---
Author Organization [facility] Address [address] [place] [address] Care Team Providers Care Educational Resource Coordinator Name Role Phone Jasmin Jara Primary Care Provider Unavail able Encounter Details Date Type Department Care Team (Late st Contact Info) Description 02/16/2010 Abstract Used for ABSTRACTING Data [phone] Jasmin Jara PA Social History Tobacco Use [...] 05/10/2010 added in this encounter Care Teams Educational Resource Coordinator Relationship Specialty Start Date End Date Jasmin Jara PA PCP - General 10/06/09 05/09/10 documented as of this encounter
--- OUTSIDE RECORDS SUMMARY | 2024-06-03 09:15 | XMS_ITS | Encounter Summary ---
Author Organization [facility] Address [address] [place] [address] Care Team Providers Care Events Traffic Controller Name Role Phone Unavailable Primary Care Provider Unavailabl e Encounter Details Date Type Department Care Team (Late st Contact Info) Description 09/27/2005 9:47 EDT Hospital Encounter [facility] [address] [place] [address] Oscar Moreno MD MSc [address] [place] [address] Social History Tobacco Use Types Packs/Day Years Used Date Smoking Tobacco: Every Day Cigarettes 0.5 13.6 Started: 11/10/2010 Smokeless Tobacco: Never Comments:06/13/20 actively try ing to quit about 5-8 cigs/day Alcohol Use Standard Drinks/Week Comments Yes 0 (1 standard drink = 0.6 oz pur e alcohol) rarely [facility] Utilities Answer Date Recorded In the past 12 months has [employer], gas, oil, or water [employer] threatened to shut off services in your [...] your living situation today? I have a [facility] 04/03/2024 Think [...] the past 12 months has th e [employer], gas, oil, or water [employer] threatened to shut off services in your [...]
--- OUTSIDE RECORDS SUMMARY | 2024-06-03 09:16 | XMS_ITS | Encounter Summary ---
Author Organization [facility] Address [address] [place] [address] Care Team Providers Care Spirits Model Name Role Phone Unavailable Primary Care Provider Unavailabl e Encounter Details Date Type Department Care Team (Late st Contact Info) Description 06/13/2004 Office Visit [facility] - Maple conversion [address] [place] [address] Doris Moreno MD [address] [facility], [address] [place] [phone] Social History Tobacco Use Types Packs/Day Years [...] patient was discharged home and accompanied by correspondence review clerk. The patient left the Emergency Department ambulatory and via private vehicle. --17:31 Rob Echeverria R.N., E.M.T. Dorrie Bruso R.N. Tyler Vogt, R.N. Locked/Released at 06/13/2004 19:11 by Norma Evans R.N. documented in this encounter Plan of Treatment Not on file documented as of this encounter Visit Diagnoses Not on filedocumented in this encounter
--- OUTSIDE RECORDS SUMMARY | 2024-06-03 09:16 | XMS_ITS | Encounter Summary ---
Author Organization [facility] Address [address] [place] [address] Care Team Providers Care Bill Sorter Name Role Phone Unavailable Primary Care Provider Unavailabl e Encounter Details Date Type Department Care Team (Late st Contact Info) Description 01/27/2004 Office Visit [facility] - Maple conversion [address] [place] [address] Samira Fong MD [address] [place] [address] Social History Tobacco Use Types Packs/Day Years [...] SOCIAL HISTORY Nonsmoker. FAMILY HISTORY works at [employer] ADDITIONAL NOTES The nursing notes have been [...] hot water. Pain level now: 11/13. Treatment BUTCHERETTE: ice and (arrives with dressing on right [...] The patientwas discharged home and accompanied by water supply technician. The patient left the Emergency Department ambulatory and via private vehicle. Departure time: 14:31 --1431 Rob Cardoso R.N. Locked/Released at 01/26/2004 14:31 by Lara Sparks R.N. documented in this encounter Plan of Treatment Not on file documented as of this encounter Visit Diagnoses Not on filedocumented in this encounter
--- OUTSIDE RECORDS SUMMARY | 2024-06-03 09:16 | XMS_ITS | Encounter Summary ---
Author Organization [facility] Address [address] [place] [address] Care Team Providers Care Data Examination Clerk Name Role Phone Unavailable Primary Care Provider Unavailabl e Encounter Details Date Type Department Care Team (Latest Contact Info) Description 06/13/2004 14:28 EST Hospital Encounter [facility] Emergency Department - [facility] [address] [place] [address] Emergency, Default, MD Discharge Disposition: Home or [...] RESULT Final Result [facility] [address] [place] [address] * (ABNORMAL) HEMAGRAM AND DIFFERENTIAL (06/13/2004 15:19 [...] BLES Final Result [facility] [address] [place] [address] documented in this encounter Visit Diagnoses Not on filedocumented in this encounter
--- OUTSIDE RECORDS SUMMARY | 2024-06-03 09:16 | XMS_ITS | Encounter Summary ---
Author Organization [facility] Address [address] [place] [address] Care Team Providers Care Street Contractor Name Role Phone Unavailable Primary Care Provider Unavailabl e Encounter Details Date Type Department Care Team (Late st Contact Info) Description 08/19/2004 16:02 [facility] Hospital Encounter [facility] - Other [address] [place] [address] Rosalio Bueno MD [address] [phone] Social History Tobacco Use Types Packs/Day Years Used Date Smoking Tobacco: Every Day Cigarettes 0.5 13.6 Started: 11/10/2010 Smokeless Tobacco: Never Comments:06/13/20 actively try ing to quit about 5-8 cigs/day Alcohol Use Standard Drinks/Week Comments Yes 0 (1 standard drink = 0.6 oz pur e alcohol) rarely C Utilities Answer Date Recorded In the past 12 months has [email or web address] gas, oil, or water [email or web address] threatened to shut off services in your [...] any time in the past 12 m [facility], were you homeless or [...] the past 12 months has th e [employer], gas, oil, or water [email or web address] threatened to shut off services in your [...]
--- OUTSIDE RECORDS SUMMARY | 2024-06-03 09:16 | XMS_ITS | Encounter Summary ---
Author Organization [facility] Address [address] [place] [address] Care Team Providers Care Agile Project Manager Name Role Phone Jasmin Jara Primary Care Provider Unavail Trinity Wilson MD Primary Care Provider Encounter Details Date Type Department Care Team (Late st Contact Info) Description 04/02/[address] [facility] Family Medicine [address] [address] Mervin Arevalo MD [address] [place] [address] [address] Social History Tobacco Use Types [...] Result No Neisseria gonorrhoeae DNA detected by rotary engraver mediated amplification. [facility] Report Status Final [id number] [facility] Specimen Description [facility] 04/02/2004 15:5 8 EDT 04/02/2004 22:22 EDT us Mervin Arevalo MD MICROBIOLOGY - GENERAL ORDERAB LES Final Result Performing Organization Address [facility] de Phone Number [facility] [address] [place] [address] * CHLAMYDIA TRACHOMATIS AMPLIFIED PROBE (04/02/2004 15:58 EDT) Specimen Description [facility] Result No Chlamydia trachomatis DNA detected by rotary engraver mediated amplification. [facility] Report Status Final [id number] [facility] 04/02/2004 15:5 8 EDT 04/02/2004 22:21 EDT us Mervin Arevalo MD MICROBIOLOGY - GENERAL ORDERAB LES Final Result Performing Organization Address [facility] de Phone Number [facility] [address] [place] [address] * CYTOPATHOLOGY (04/02/2004 0:00 EDT) Pathology Report: CYTOPATHOLOGY REPORT Reports generated via electronic interface contain original data; however they are lacking the format of the original report. Caution should be taken when reading/interpreti ng unformatted reports. Name: ? CRISTY DEL VALLE ? Accession #: ? [id number] : ? 1985 (Age: 19) ??F ?Collect [...] Final Res ult [facility] [address] [place] [address] documented in this encounter Visit Diagnoses Not on filedocumented in this encounter Care Teams Agile Project Manager Relationship Specialty Start Date End Date Jasmin Jara PA PCP - General 10/06/09 05/09/10 Trinity Samaniego MD [address] [place] [phone] PCP - General 09/16/09 10/05/09 documented as of this encounter
--- OUTSIDE RECORDS SUMMARY | 2024-06-03 09:16 | XMS_ITS | Encounter Summary ---
Author Organization [facility] Address [address] [place] [address] Care Team Providers Care Custodian Name Role Phone Unavailable Primary Care Provider Unavailabl e Encounter Details Date Type Department Care Team (Late st Contact Info) Description 04/11/2004 Office Visit [facility] - Maple conversion [address] [place] [address] Josh Coelho, EUNICE-C [address] [facility], [address] [place] [phone] Social History Tobacco Use Types Packs/Day Years [...] Discharge instructions reviewed with the patient and paediatric surgeon. Warnings reviewed. Reviewed medication. Treatments reviewed. Reviewed referrals. Patient and paediatric surgeon verbalized understanding. The patient was discharged home and accompanied by paediatric surgeon. The patient left the Emergency Department ambulatory and via private vehicle. Patient has no belongings. --15:23 Rob Gould R.N., R.N. Locked/Released at 04/11/2004 23:18 by Fermin Millan R.N. documented in this encounter Plan of Treatment Not on file documented as of this encounter Visit Diagnoses Not on filedocumented in this encounter
--- OUTSIDE RECORDS SUMMARY | 2024-06-03 09:16 | XMS_ITS | Encounter Summary ---
Author Organization [facility] Address [address] [place] [address] Care Team Providers Care Inspector Purchased Parts Name Role Phone Unavailable Primary Care Provider Unavailabl e Encounter Details Date Type Department Care Team (Latest Contact Info) Description 04/02/2004 17:44 EDT Hospital Encounter [facility] - Other [address] [place] [address] Rigo Rosenbaum MD [address] [place] [phone] Discharge Disposition: Auto Discharge Social History [...]
--- OUTSIDE RECORDS SUMMARY | 2024-06-03 09:16 | XMS_ITS ---
Author Organization Unknown Address [address] [place] [phone] Phone Care Team Providers Care Dough Mixer Helper Name Role Phone OLIVE KING Registered Nurse Unavailable Unavailable [facility] Unavailable ROSA ISELA Judge Attending Unavailable [facility] Unavailable LORIN Jung Primary Unavailable UNLISTED PROVIDER - REQUESTED Xhandoff Un available Results NOVA GLUCOSE FINGER HEEL CAP ILLARY - Collect Date/Time: 01/07/2024 07:46 [facility] ID: [id number] [address] [place] [address], [id number] LOINC: 24808-4 Test Value Unit Reference Range Code Code System Flag GLUCOSE CAP 214 mg/dL L=70 H=116 07068-0 LOINC H MAGNESIUM SERUM* - Collect D ate/Time: 01/07/2024 07:05 [facility] ID: [id number] - [id number] [address] [place] [address], [address] LOINC: 87688-7 Test Value Unit Reference Range Code Code System Flag MAGNESIUM 2.0 mg/dL L=1.8 H=2.4 08667-1 LOINC BASIC METABOLIC PANEL (BMP) - Collect Date/Time: 01/07/2024 07:05 [facility] ID: [id number] - [id number] [address] [place] [address], [address] LOINC: 95494-9 Test Value Unit Reference Range Code Code [...] H=34 2028-9 LOINC ANION GAP 12.1 mmol/L 34754-6 LOINC CALCIUM SERUM 8.6 mg/dL L=8.2 H=10.2 33701-9 LOINC AGE 38 years eGFR (non-Afr.Amer.) 104 mL/min 91756-4 LOINC eGFR (Afr-Lithuanian) > 120 mL/min 96143-9 LOINC CBC W/ DIFFERENTIAL* - Colle ct Date/Time: 01/07/2024 07:05 [facility] ID: [id number] - [id number] [address] [place], [place], [address] LOINC: 87270-2 Test Value Unit Reference Range Code Code System Flag WBC 16.49 th/cmm L=5.00 H=10.00 6690-2 LOINC H NEUT % 65.2 % L=40.0 H=80.0 LYMPH % 26.0 % L=10.0 H=50.0 MONO % 7.0 % L=2.0 H=12.0 35403-3 LOINC EOS % 1.2 % L=0.0 H=8.0 BASO % 0.2 % L=0.0 H=3.0 IG % 0.4 % L=0.0 H=1.1 2514-8 LOINC NRBC % 0.0 % L=0.0 H=0.0 02916-0 LOINC NEUT abs count 10.8 th/cmm L=1.6 H=8.4 751-8 LOINC H LYMPH abs count 4.3 th/cmm L=1.5 H=4.0 731-0 LOINC H MONO abs count 1.2 th/cmm L=0.2 H=1.0 742-7 LOINC H EOS abs count 0.2 th/cmm L=0.0 H=0.5 711-2 LOINC BASO abs count 0.0 th/cmm L=0.0 H=0.2 704-7 LOINC IG abs count 0.1 th/cmm L=0.0 H=0.1 30160-1 LOINC NRBC abs count 0.0 mil/cmm L=0.0 H=0.0 84504-4 LOINC RBC 4.12 mil/cmm L=3.90 H=5.40 789-8 [...] CAP ILLARY - Collect Date/Time: 01/06/2024 20:49 [facility] ID: [id number] - [id number] [address] [place], [place], [id number] LOINC: 61225-2 Test Value Unit Reference Range Code Code System Flag GLUCOSE CAP 239 mg/dL L=70 H=116 73554-0 LOINC H LACTIC ACID - Collect Date/T nestor: 01/06/2024 13:30 [facility] ID: [id number] - [id number] [address] [place], [place], [address] LOINC: Test Value Unit Reference Range Code Code System Flag LACTIC ACID 1.8 mmol/L L=0.7 H=2.1 57251-5 LOINC NOVA GLUCOSE FINGER HEEL CAP ILLARY - Collect Date/Time: 01/06/2024 12:54 [facility] ID: [id number] - [id number] [address] [place], [place], [id number] LOINC: 13784-0 Test Value Unit Reference Range Code Code System Flag GLUCOSE CAP 329 mg/dL L=70 H=116 65433-7 LOINC H DRUG SCN 13 PANEL (MEDTOX)* - Collect Date/Time: 01/06/2024 12:15 [facility] ID: [id number] [address] [place], [place], [id number] LOINC: 21937-0 Test Value Unit Reference Range Code Code System Flag CANNABINOIDS POSITIVE Cutoff = 50 ng/mL 39203-5 LOINC A PHENCYCLIDINE NEGATIVE Cutoff = 25 ng/mL 52092-5 LOINC COCAINE NEGATIVE Cutoff = 150 ng/mL 38316-6 LOINC METHAMPHETAMINES NEGATIVE Cutoff = 50 0 ng/mL 89271-5 LOINC OPIATES NEGATIVE Cutoff = 100 ng/mL 95562-4 LOINC AMPHETAMINES NEGATIVE Cutoff = 500 ng/mL 09709-6 LOINC BENZODIAZEPINES NEGATIVE Cutoff = 150 ng/mL 96216-2 LOINC TRICYCLIC ANTIDEP NEGATIVE Cutoff = 3 00 ng/mL 3533-7 LOINC METHADONE NEGATIVE Cutoff = 200 ng/mL 05871-5 LOINC BARBITURATES NEGATIVE Cutoff = 200 ng/mL 41114-9 LOINC OXYCODONE POSITIVE Cutoff = 100 ng/mL 43993-7 LOINC A BUPRENORPHINE NEGATIVE Cutoff = 10 mg/mL 3414-0 LOINC URINALYSIS WITH MICROSCOPIC* - Collect Date/Time: 01/06/2024 12:15 [facility] ID: [id number] [address] [place], [place], [address] LOINC: 91263-2 Test Value Unit Reference Range Code Code System Flag COLLECTION MODE: CLEAN CATCH 77571-1 LOINC Color YELLOW yellow 5778-6 LOINC Appearance HAZY clear 5767-9 LOINC Glucose urine >=1000 negative mg/dl 81107-2 LOINC A Bilirubin NEGATIVE negative 5770-3 LOINC Ketones >=80 negative mg/dl 2514-8 LOINC A Spec gravity 1.025 1.003 - 1.030 5811-5 LOINC pH urine 5.5 5.0 - 7.0 2756-5 LOINC Protein TRACE negative mg/dl 00408-4 LOINC Urobilinogen 0.2 <or= 1 EU/dl 98126-9 LOINC Nitrite NEGATIVE negative 5802-4 LOINC Blood TRACE-IN negative 5794-3 LOINC A Leukocytes NEGATIVE negative 38845-5 LOINC WBCs 0-5 0-5 / hpf 41796-4 LOINC RBCs 0-5 0-5 / hpf 24744-7 LOINC Epith cells 5-10 0-5 / hpf 57084-7 LOINC Cell types squamous Crystals none none Bacteria none none Mucus none none Casts none none /lpf Other KETONES QUAL - Collect Date/ Time: 01/06/2024 11:15 [facility] ID: [id number] - [id number] [address] [place], [place], [address] LOINC: 5567-3 Test Value Unit Reference Range Code Code System Flag ACETONE SMALL 5567-3 LOINC CBC W/ DIFFERENTIAL* - Colle ct Date/Time: 01/06/2024 11:15 [facility] ID: [id number] [address] [place] [address], [address] LOINC: 10693-7 Test Value Unit Reference Range Code Code System Flag WBC 15.83 th/cmm L=5.00 H=10.00 6690-2 LOINC H NEUT % 87.2 % L=40.0 H=80.0 H LYMPH % 10.4 % L=10.0 H=50.0 MONO % 1.5 % L=2.0 H=12.0 79389-2 LOINC L EOS % 0.1 % L=0.0 H=8.0 BASO % 0.4 % L=0.0 H=3.0 IG % 0.4 % L=0.0 H=1.1 2514-8 LOINC NRBC % 0.0 % L=0.0 H=0.0 82436-8 LOINC NEUT abs count 13.8 th/cmm L=1.6 H=8.4 751-8 LOINC H LYMPH abs count 1.7 th/cmm L=1.5 H=4.0 731-0 LOINC MONO abs count 0.2 th/cmm L=0.2 H=1.0 742-7 LOINC EOS abs count 0.0 th/cmm L=0.0 H=0.5 711-2 LOINC BASO abs count 0.1 th/cmm L=0.0 H=0.2 704-7 LOINC IG abs count 0.1 th/cmm L=0.0 H=0.1 34688-4 LOINC NRBC abs count 0.0 mil/cmm L=0.0 H=0.0 76362-0 LOINC RBC 4.16 mil/cmm L=3.90 H=5.40 789-8 [...] RATE* - Collect Date/Jona e: 01/06/2024 11:15 [facility] ID: [id number] [address] [place] [address], [address] LOINC: 4537-7 Test Value Unit Reference Range Code Code System Flag SED. RATE 96 mm/hr L=0 H=20 4537-7 LOINC H C REACTIVE PROTEIN HIGH SENS ITIVITY* - Collect Date/Time: 01/06/2024 11:15 [facility] ID: [id number] [address] [place] [address], [address] LOINC: 33472-8 Test Value Unit Reference Range Code Code System Flag CRP-HIGH SENS. 64.92 mg/L L=0.00 H=3.00 89977-4 LOINC H CRP-HIGH SENS 6.49 mg/dL L=0.00 H=0.30 37960-5 LOINC H SALICYLATE SERUM* - Collect Date/Time: 01/06/2024 11:15 [facility] ID: [id number] - [id number] [address] [place] [address], [address] LOINC: 4024-6 Test Value Unit Reference Range Code Code System Flag SALICYLATE 4.9 mg/dL L=15.0 H=30.0 4024-6 LOINC L ACETAMINOPHEN* - Collect Norm e/Time: 01/06/2024 11:15 [facility] ID: [id number] - [id number] [address] [place] [address], [address] LOINC: 3298-7 Test Value Unit Reference Range Code Code System Flag ACETAMINOPHEN < 2.0 ug/mL L=10.0 H=20.0 3298-7 LOINC L ALCOHOL (ETHANOL)* - Collect Date/Time: 01/06/2024 11:15 [facility] ID: [id number] [address] [place] [address], [address] LOINC: 91243-7 Test Value Unit Reference Range Code Code System Flag ALCOHOL (ETHANOL) 3 mg/dL 63264-5 LOINC PHOSPHORUS SERUM - Collect D ate/Time: 01/06/2024 11:15 [facility] ID: [id number] [address] [place] [address], [id number] LOINC: 2777-1 Test Value Unit Reference Range Code Code System Flag PHOSPHORUS SERUM 3.3 mg/dL L=2.2 H=4.2 MAGNESIUM SERUM* - Collect D ate/Time: 01/06/2024 11:15 [facility] ID: [id number] - [id number] [address] [place] [address], [address] LOINC: 76411-7 Test Value Unit Reference Range Code Code System Flag MAGNESIUM 1.6 mg/dL L=1.8 H=2.4 66127-9 LOINC L OSMOLALITY SERUM - Collect D ate/Time: 01/06/2024 11:15 [facility] ID: [id number] - [id number] [address] [place], [place], [id number] LOINC: 2692-2 Test Value Unit Reference Range Code Code System Flag Osmolality 308 275-295 H LACTIC ACID - Collect Date/T nestor: 01/06/2024 11:15 [facility] ID: [id number] [address] [place] [address], [address] LOINC: Test Value Unit Reference Range Code Code System Flag LACTIC ACID 2.7 mmol/L L=0.7 H=2.1 35123-7 LOINC H COMPREHENSIVE METABOLIC PANE L (CMP) - Collect Date/Time: 01/06/2024 11:15 [facility] ID: [id number] [address] [place] [address], [address] LOINC: 52316-0 Test Value Unit Reference Range Code Code [...] H=34 2028-9 LOINC ANION GAP 15.1 mmol/L 28659-9 LOINC CALCIUM SERUM 8.8 mg/dL L=8.2 H=10.2 14973-7 LOINC BILIRUBIN TOTAL 0.3 mg/dL L=0.0 H=1.3 1975-2 LOINC ALK. PHOS. 121 U/L L=46 H=116 6768-6 LOINC H SGOT (AST) 13 U/L L=15 H=37 1920-8 LOINC L SGPT (ALT) 18 U/L L=12 H=78 1742-6 LOINC TOTAL PROTEIN 7.7 gm/dL L=6.0 H=8.0 2885-2 LOINC ALBUMIN 2.8 gm/dL L=3.4 H=5.0 1751-7 LOINC L AGE 38 years eGFR (non-Afr.Amer.) 85 mL/min 34108-7 LOINC eGFR (Afr-Lithuanian) 103 mL/min 36912-9 LOINC ORDER VENOUS BLOOD GAS* - Co llect Date/Time: 01/06/2024 11:10 [facility] ID: [id number] - [id number] [address] [place], [place], [id number] LOINC: Test Value Unit Reference Range Code [...] CAP ILLARY - Collect Date/Time: 01/06/2024 11:07 [facility] ID: [id number] [address] [place] [address], [id number] LOINC: 55140-4 Test Value Unit Reference Range Code Code System Flag GLUCOSE CAP 342 mg/dL L=70 H=116 50568-6 LOINC H Social History Type Status Start Date End Date Code Code Syst em Sex Female Vital Signs Vital Sign Value Unit [place] Value [place] Unit Date/Time Recent/Initial? Code Code System Body Mass Index 37.08 kg/m2 01/06/2024 13:53 Initial 34145 -5 [facility] Systolic Blood Pressure 132 mm[Hg] 01/07/2024 03:48 Most Recent 8480- 6 [facility] Diastolic Blood Pressure 87 mm[Hg] 01/07/2024 03:48 Most Recent 8462- 4 [facility] Systolic Blood Pressure 153 mm[Hg] 01/06/2024 11:09 Initial 8480- 6 [facility] Diastolic Blood Pressure 90 mm[Hg] 01/06/2024 11:09 Initial 8462- 4 [facility] Body Surface Area 2.10 m2 01/06/2024 13:53 Initial 3140- 1 [facility] Height 162.560 0 cm 64.00 in 01/06/2024 13:53 Initial 8302- 2 [facility] O2 Saturation 96 % 2023 05:08 Most Recent 54014 -5 [facility] O2 Saturation 100 % 2023 11:09 Initial 63172 -5 [facility] Inhaled Oxygen Flow Rate 4.00 L/min 01/06/2024 11:30 Initial 3151- 8 [facility] Pulse 113.0 /min 01/07/2024 05:08 Most Recent 8867- 4 [facility] Pulse 110.0 /min 01/06/2024 11:09 Initial 8867- 4 [facility] Respiration 22 /min 01/07/20 24 05:08 Most Recent 9279- 1 [facility] Respiration 12 /min 01/06/20 24 11:09 Initial 9279- 1 [facility] Temperature 37.9 Mesha 100.2 F 01/07/20 24 03:48 Most Recent 8310- 5 [facility] Temperature 36.2 Mesha 97.2 F 01/06/20 24 11:09 Initial 8310- 5 [facility] Weight 97.98 kg 216.00 lbs 01/06/2024 13:53 Initial 95121 -7 [facility] Medications Medication Start Date End Date Route Frequency Dose Code Code System Medication Instructions Home Meds Bactrim DS 800MG-160MG Oral Tablet 01/07/2024 Unknown ORAL TWICE A DAY 1 unit(s) 516648 RxNorm TAKE 1 EACH ORAL TWICE A DAY DULoxetine HCl 40MG Oral Capsule, Delayed Release 01/07/2024 Unknown ORAL DAILY 40 MILLIGRAMS 825525 RxNorm TAKE 40 MILLIGRAM S ORAL DAILY Gabapentin 300MG Oral Capsule 01/07/2024 Unknown ORAL DAILY 300 MILLIGRAMS 702460 RxNorm TAKE 300 MILLIGRAM S ORAL DAILY Gabapentin 300MG Oral Tablet 01/07/2024 Unknown ORAL BEDTIME 1200 MILLIGRAMS 5500747 RxNorm TAKE 1200 MILLIGRAM S ORAL BEDTIME Januvia 25MG Oral Tablet 01/07/2024 Unknown ORAL DAILY 25 MILLIGRAMS 052439 RxNorm TAKE 25 MILLIGRAM S ORAL DAILY Jardiance 10MG Oral Tablet 01/07/2024 Unknown ORAL DAILY 10 MILLIGRAMS 1847686 RxNorm TAKE 10 MILLIGRAM S ORAL DAILY Lantus SoloStar 100U/1ML Subcutaneous Solution 01/07/2024 Unknown SUBCUTAN EOUS BEDTIME 40 UNIT RxNorm INJECT 40 UNIT SUBCUTANE OUS BEDTIME Lidocaine 5% Topical application Patch, Extended Release 01/07/2024 Unknown TOPICAL APPLICAT ION DAILY 1 unit(s) 0164422 RxNorm 1 EACH TOPICAL APPLICATI ON DAILY Omeprazole 40MG Oral Capsule, Delayed Release 01/07/2024 Unknown ORAL DAILY 40 MILLIGRAMS 601186 RxNorm TAKE 40 MILLIGRAM S ORAL DAILY Ondansetron 4MG Oral Tablet, Disintegrating 01/07/2024 Unknown ORAL NEEDED EVERY 6 HOURS 4 MILLIGRAMS 441933 RxNorm TAKE 4 MILLIGRAM S ORAL NEEDED EVERY 6 HOURS Reglan 10MG Oral Tablet 01/07/2024 Unknown ORAL NEEDED EVERY 6 HOURS 10 MILLIGRAMS 522688 RxNorm TAKE 10 MILLIGRAM S ORAL NEEDED EVERY 6 HOURS insulin aspart 100U/1ML Injection Solution 01/07/2024 Unknown INJECTIO N THREE TIMES A DAY 1 UNIT 032672 RxNorm 1 UNIT INJECTION THREE TIMES A DAY oxyCODONE HCl-acetaminoph en 5MG-325MG Oral Tablet 01/07/2024 Unknown ORAL NEEDED EVERY 6 HOURS 1 TABLET 2933237 RxNorm TAKE 1 TABLET ORAL NEEDED EVERY 6 HOURS traMADol HCl 50MG Oral Tablet 01/07/2024 Unknown ORAL NEEDED EVERY 6 HOURS 50 MILLIGRAMS 285595 RxNorm TAKE 50 MILLIGRAM S ORAL NEEDED EVERY 6 HOURS traZODone hydrochloride 50MG Oral Tablet 01/07/2024 Unknown ORAL BEDTIME 50 MILLIGRAMS 373573 RxNorm TAKE 50 MILLIGRAM S ORAL BEDTIME [...] Syste m Amputation of left foot completed [id number] S NOMEDCT Problems Problem Start Date Resolved Date Status Code Code System NAUSEA active 129916533 SNOMED-CT VOMITING active 402335530 SNOMED-CT GASTROPARESIS WITH DM active 14747185 4 SNOMED-CT T2DM active 57117195 SNOMED-CT DIABETES TYPE I 01/06/2024 resolved 21771315 SNO MED-CT GASTROPARESIS 01/06/2024 resolved 270676833 SNOME D-CT Allergies and Adverse Reactions Allergy Substance Reaction Severity Start Date Concern Status Co de Code System No Known Drug Allergies Active 138419233 SNOMED-CT Plan of Treatment Plan # Nausea, vomiting, status post transmetatarsal amputation 01/03/2024. # History of gastroparesis # AMS presentation in ED with improvement with Narcan IV fluid while vomiting, advance diet as tolerated. Encourage fluids, ice chips slowly. Serial laboratory monitoring. Replete electrolytes as needed. Continue previously prescribed Bactrim DS by four h club agent at [facility] Limit narcotics as much as possible to breakthrough pain, IV Tylenol TID Ondansetron and metoclopramide for nausea management Decrease gabapentin PM dose and hold trazodone and tramadol due to AMS presentation in ED [facility]-->Dr. Carvalho saw patient in ED, [...] Date Inactive Da te Discharge Summary Notes [facility] 01/07/2024 10:36 Patient Name: CATARINA [...] for neuropathic full-thickness ulcer and cellulitis at [facility], gastroparesis, migraines, anxiety, depression, chronic low back pain, presents to the emergency department for complaints of nausea and vomiting today. patient was seen by four h club agent yesterday at [facility] and her recent surgical site showed [...] IV. patient's left foot wound evaluated by [facility] as well as hospital medicine and will hold further IV antibiotics and start prescribed Bactrim DS per [facility]. Patient will be admitted to [...] alert and oriented History and Physical Notes [facility] 01/06/2024 18:35 Patient Name Age Sex Admission Date/Time CATARINA SERNA 1985 38 years Female 01/06/2024 10:32 01/06/2024 17:23 Admission Date: 01/06/2024 Reason for Admission: Nausea, vomiting Code Status: FULL Attending Physician: Eyrn Bush MD Primary Care Physician: LORIN Jung History of Present Illness Chief Complaint: AMS 38-year-old female patient with PMH T2DM with diabetic neuropathy, recent transmetatarsal amputation 4 days ago for neuropathic full-thickness ulcer and cellulitis at [facility], gastroparesis, migraines, anxiety, depression, chronic low back pain, presents to the emergency department for complaints of nausea and vomiting today. patient was seen by four h club agent yesterday at [facility] and her recent surgical site showed [...] IV. patient's left foot wound evaluated by [facility] as well as hospital medicine and will hold further IV antibiotics and start prescribed Bactrim DS per [facility] pod[facility]. Patient will be admitted to [...] needed. Continue previously prescribed Bactrim DS by four h club agent at [facility] Limit narcotics as much as possible to breakthrough pain, IV Tylenol TID Ondansetron and metoclopramide for nausea management Decrease gabapentin PM dose and hold trazodone and tramadol due to AMS presentation in ED [facility]-->Dr. Carvalho saw patient in ED, [...]
--- OUTSIDE RECORDS SUMMARY | 2024-06-03 09:16 | XMS_ITS | Encounter Summary ---
Author Organization [facility] Address [address] [place] [id number] Care Team Providers Care Commissioner Of Relocation Services Name Role Phone Unavailable Primary Care Provider Unavailabl e Encounter Details Date Type Department Care Team (Late st Contact Info) Description 01/26/2004 12:26 EDT Hospital Encounter [address] [address] Samira Fong MD [address] [place] [address] Social History Tobacco Use Types Packs/Day Years Used Date Smoking Tobacco: Every Day Cigarettes 0.5 13.6 Started: 11/10/2010 Smokeless Tobacco: Never Comments:06/13/20 actively try ing to quit about 5-8 cigs/day Alcohol Use Standard Drinks/Week Comments Yes 0 (1 standard drink = 0.6 oz pur e alcohol) rarely [facility] Utilities Answer Date Recorded In the past 12 months has [employer], gas, oil, or water [employer] threatened to shut off services in your [...] the past 12 months has th e [employer], gas, oil, or water [employer] threatened to shut off services in your [...]
--- OUTSIDE RECORDS SUMMARY | 2024-06-03 09:16 | XMS_ITS ---
Author Organization Unknown Address [address] [place] [phone] Phone Care Team Providers Care Teacher [facility] Name Role Phone ROSA ISELA Judge Attending Unavailable Social History Type Status Start Date End Date Code Code Syst em Sex Female Medications Medication Start Date End Date Route Frequency Dose Code Code System Medication Instructions Home Meds Bactrim DS 800MG-160MG Oral Tablet 01/07/2024 Unknown ORAL TWICE A DAY 1 unit(s) 732614 RxNorm TAKE 1 EACH ORAL TWICE A DAY DULoxetine HCl 40MG Oral Capsule, Delayed Release 01/07/2024 Unknown ORAL DAILY 40 MILLIGRAMS 610738 RxNorm TAKE 40 MILLIGRAM S ORAL DAILY Gabapentin 300MG Oral Capsule 01/07/2024 Unknown ORAL DAILY 300 MILLIGRAMS 193610 RxNorm TAKE 300 MILLIGRAM S ORAL DAILY Gabapentin 300MG Oral Tablet 01/07/2024 Unknown ORAL BEDTIME 1200 MILLIGRAMS 6467450 RxNorm TAKE 1200 MILLIGRAM S ORAL BEDTIME Januvia 25MG Oral Tablet 01/07/2024 Unknown ORAL DAILY 25 MILLIGRAMS 807337 RxNorm TAKE 25 MILLIGRAM S ORAL DAILY Jardiance 10MG Oral Tablet 01/07/2024 Unknown ORAL DAILY 10 MILLIGRAMS 3067437 RxNorm TAKE 10 MILLIGRAM S ORAL DAILY Lantus SoloStar 100U/1ML Subcutaneous Solution 01/07/2024 Unknown SUBCUTAN EOUS BEDTIME 40 UNIT RxNorm INJECT 40 UNIT SUBCUTANE OUS BEDTIME Lidocaine 5% Topical application Patch, Extended Release 01/07/2024 Unknown TOPICAL APPLICAT ION DAILY 1 unit(s) 3461064 RxNorm 1 EACH TOPICAL APPLICATI ON DAILY Omeprazole 40MG Oral Capsule, Delayed Release 01/07/2024 Unknown ORAL DAILY 40 MILLIGRAMS 034156 RxNorm TAKE 40 MILLIGRAM S ORAL DAILY Ondansetron 4MG Oral Tablet, Disintegrating 01/07/2024 Unknown ORAL NEEDED EVERY 6 HOURS 4 MILLIGRAMS 289302 RxNorm TAKE 4 MILLIGRAM S ORAL NEEDED EVERY 6 HOURS Reglan 10MG Oral Tablet 01/07/2024 Unknown ORAL NEEDED EVERY 6 HOURS 10 MILLIGRAMS 413458 RxNorm TAKE 10 MILLIGRAM S ORAL NEEDED EVERY 6 HOURS insulin aspart 100U/1ML Injection Solution 01/07/2024 Unknown INJECTIO N THREE TIMES A DAY 1 UNIT 027080 RxNorm 1 UNIT INJECTION THREE TIMES A DAY oxyCODONE HCl-acetaminoph en 5MG-325MG Oral Tablet 01/07/2024 Unknown ORAL NEEDED EVERY 6 HOURS 1 TABLET 7826352 RxNorm TAKE 1 TABLET ORAL NEEDED EVERY 6 HOURS traMADol HCl 50MG Oral Tablet 01/07/2024 Unknown ORAL NEEDED EVERY 6 HOURS 50 MILLIGRAMS 834740 RxNorm TAKE 50 MILLIGRAM S ORAL NEEDED EVERY 6 HOURS traZODone hydrochloride 50MG Oral Tablet 01/07/2024 Unknown ORAL BEDTIME 50 MILLIGRAMS 350516 RxNorm TAKE 50 MILLIGRAM S ORAL BEDTIME [...] Date Status Code Code System NAUSEA active 750032624 SNOMED-CT VOMITING active 583925562 SNOMED-CT GASTROPARESIS WITH DM active 08825239 4 SNOMED-CT T2DM active 98198191 SNOMED-CT DIABETES TYPE I 01/06/2024 resolved 68981639 SNO MED-CT GASTROPARESIS 01/06/2024 resolved 321604750 SNOME D-CT Allergies and Adverse Reactions Allergy Substance Reaction Severity Start Date Concern Status Co de Code System No Known Drug Allergies Active 800958854 SNOMED-CT Plan of Treatment No Data Found Encounters Encounter Diagnosis Start Date Code Code Sys tem Vomiting, unspecified 01/06/2024 SNOMED -CT Personal Care Team Section Performer Name Performer Role Active Date Inactive Da te
--- OUTSIDE RECORDS SUMMARY | 2024-06-03 09:16 | XMS_ITS | Encounter Summary ---
Author Organization [facility] Address [address] [place] [address] Care Team Providers Care Nurse Reviewer Name Role Phone Unavailable Primary Care Provider Unavailabl e Encounter Details Date Type Department Care Team (Latest Contact Info) Description 04/11/2004 12:25 EST Hospital Encounter [facility] Emergency Department - [facility] [address] [place] [address] Emergency, Default, MD Discharge Disposition: Home or [...] % Lymphocytes 25.4 15.0 - 46.8 % [facility] % Monocytes 7.2 1.8 - [...] BLES Final Result [facility] [address] [place] [address] * N. GONORRHOEAE AMPLIFIED PROBE (04/11/2004 13:50 EST) Result No Neisseria gonorrhoeae DNA detected by informatics spec mediated amplification. [facility] Report Status Final [id number] [facility] Specimen Description [facility] 04/11/2004 13:5 0 EST 04/11/2004 14:05 EST us Default Emergency MICROBIOLOGY - GENERAL CLEMENTE GOLDEN Final Result Performing Organization Address [facility] Co de Phone Number [facility] [address] [place] [address] * CHLAMYDIA TRACHOMATIS AMPLIFIED PROBE (04/11/2004 13:50 EST) Specimen Description [facility] Result No Chlamydia trachomatis DNA detected by informatics spec mediated amplification. [facility] Report Status Final [id number] [facility] 04/11/2004 13:5 0 EST 04/11/2004 14:05 EST us Default Emergency MICROBIOLOGY - GENERAL CLEMENTE GOLDEN Final Result Performing Organization Address City/[facility]/ZIP Co de Phone Number [facility] [address] [place] [address] documented in this encounter Visit Diagnoses Not on filedocumented in this encounter
[2024-06-03 10:06] LABS: Abs Immature Grans 0.11 10^3/uL (0.0-0.06); Absolute Lymphocyte Count 1.71 10^3/uL (1.2-3.4); Basophils % 0.2 %; Eosinophils % 0.3 %; HCT 43.6 % (36.0-46.0); HGB 15.2 g/dL (11.2-15.7); Immature Grans % 0.5 %; Lymphocytes % 7.5 %; MCH 30.7 pg (27.0-33.0); MCHC 34.9 % (32.0-36.0); MCV 88 fL (80-95); MPV 9.7 fL (8.0-11.0); Monocytes % 3.1 %; Neutrophils % 88.4 %; Platelet Count 381 10^3/uL (130-400); RBC 4.95 10^6/uL (3.93-5.22); RDW 11.9 % (11.7-14.6); RDW-SD 38.6 fL; WBC 22.81 10^3/uL (4.4-10.8); pH (Venous) 7.51 (7.31-7.41)
[2024-06-03 10:07] LABS: BE (Venous) 7 mmol/L (-2-3); HCO3 (Venous) 30 mmol/L (23-28); O2 Sat (Venous) 98 %; TCO2 (Venous) 25 mmol/L (24-29); pCO2 (Venous) 37 mmHg (41-51); pO2 (Venous) 77 mmHg
[2024-06-03 10:10] LABS: Absolute Basophil Count 0.05 10^3/uL (0.0-0.2); Absolute Eosinophil Count 0.07 10^3/uL (0.0-0.7); Absolute Monocyte Count 0.71 10^3/uL (0.1-0.8); Absolute Neutrophil Count 20.16 10^3/uL (1.2-6.7)
[2024-06-03 10:13] LABS: Diff Comment Diff Reviewed; RBC Morphology Normal
[2024-06-03] MEDS: Droperidol 5 MG/2 ML VIAL IVP (10:21)
[2024-06-03 10:23] LABS: ALT 27 U/L (14-59); AST 15 U/L (15-37); Albumin 3.7 g/dL (3.4-5.0); Alkaline Phosphatase 131 U/L (46-116); Anion Gap 9.3 mmol/L (3-11); BUN 12 mg/dL (7-18); Bilirubin, Total 0.41 mg/dL (0.2-1.0); CO2 28.7 mmol/L (21.0-32.0); CREATININE 0.7 mg/dL (0.55-1.02); Calcium 9.6 mg/dL (8.5-10.1); Chloride 96 mmol/L (98-107); Estimated GFR 112.75 (mL/min/1.73m2); Glucose 375 mg/dL (74-106); Magnesium 1.7 mg/dL (1.8-2.4); Potassium 3.9 mmol/L (3.5-5.1); Sodium 134 mmol/L (136-145); Total Protein 7.6 g/dL (6.4-8.2)
[2024-06-03 10:24] LABS: ETHANOL BLOOD < 3.0 mg/dL (<10)
[2024-06-03] MEDS: Normal Saline 1,000 ML 1000 ML IV (10:25)
[2024-06-03] MEDS: Magnesium Oxide 400 MG TAB PO (11:15)
[2024-06-03] MEDS: Ondansetron O.D.T. 4 MG TABEF, 3 TABS/BTL PO (12:04)
== END 2024-06-03 12:20 | disposition home or self-care (01) ==
PROVIDERS: Emergency Provider Emergency Medicine; PCP Internal Medicine
DX: R11.10 Vomiting, unspecified (principal); E11.65 Type 2 diabetes mellitus with hyperglycemia; E11.40 Type 2 diabetes mellitus with diabetic neuropathy, unspecified; F17.210 Nicotine dependence, cigarettes, uncomplicated; Z86.73 Personal history of transient ischemic attack (TIA), and cerebral infarction without residual deficits; Z79.4 Long term (current) use of insulin
CPT/HCPCS: 80053; 80307; 82805; 82962; 96361; 96374; 99284; 80320; 81003; 83735; 85025; J1790

== ENCOUNTER 2024-06-05 00:44 | Emergency (ER) | payer BC, SELFPAY ==
[2024-06-05] VITALS (55 sets, daily range): BP systolic 108–167; BP diastolic 65–97; PULSE 116–147; RESP 12–26; TEMP 36.4; O2SAT 95–100
--- NOTE | 2024-06-05 00:45 | RT.EKG_ITS ---
APPROVED REPORT Exam: Resting ECG Reason for Exam: SOB Patient Location: E HR:122 bpm ECG Measurements Heart Rate 122 AXIS [place] 137 P 62 QRSd 81 QRS 9 QT 306 T 32 QTc 436 Conclusion Sinus tachycardia...rate> 99 Normal [place]/Intervals There are no significant changes compared to prior EKG performed on 12/16/2023 at 08:19.
--- NOTE | 2024-06-05 00:47 | ED.GENADUL_ITS ---
Discharge Plan Disposition Patient Disposition: Home Condition: Stable Discharge Details Clinical Impression: Intractable nausea and vomiting, History of diabetic gastroparesis Primary Care Provider: CARLY PADGETT ED Provider: Rigo Amos [place] Meds and New Rx's Prescriptions: New prochlorperazine 25 mg suppository 25 mg [place] BID PRNQty: 12 0RF prochlorperazine maleate 10 mg tablet 10 mg PO TID PRNQty: 20 0RF Continued omeprazole 40 mg capsule,delayed release(DR/EC) 40 mg PO DAILY Qty: 30 5RF nortriptyline 10 mg capsule 10 mg PO QHS gabapentin 300 mg tablet 300 - 900 mg PO DIRECTED Rx Instructions: 300 qam 1200 hs insulin glargine [Lantus Solostar U-100 Insulin] 100 unit/mL (3 mL) insulin pen 50 unit SUBCUT HS insulin aspart U-100 [Novolog FlexPen U-100 Insulin] 100 unit/mL (3 mL) insulin pen 15 unit SUBCUT TID Patient Comments: adjusted to carbs and pre-meal BS, up to 15u SUBCUTANEOUSLY THREE TIMES DAILY WITH MEALS lidocaine [Lidoderm] 5 % adhesive patch,medicated 1 patch topical DIRECTED Patient Comments: PLACE 1 PATCH ONTO THE SKIN DAILY. PATCHE(S) MAY REMAIN IN PLACE FOR UP TO 12 HOURS IN ANY 24-HOUR PERIOD duloxetine 40 mg capsule,delayed release(DR/EC) 40 mg PO DAILY Patient Comments: TAKE 1 CAPSULE BY MOUTH ONCE DAILY (DME) Dexcom G6 Sensor Device See Rx Instructions .Route Qty: 6 0RF Rx Instructions: As directed Desiree (honey) 80 % gel 1 applic topical DAILY PRN Changed metoclopramide HCl [Reglan] 10 mg tablet 10 mg PO QAC Qty: 60 0RF Rx Instructions: take 30 minutes before meals and at bedtime Discontinued ondansetron 4 mg tablet,disintegrating 4 mg PO Q8H PRN (Reason: nausea and vomiting) Qty: 20 0RF Discharge Instructions Additional Instructions: For today please just maintain a clear liquid diet. Do not advance to full liquid/bland diet until at least tomorrow. Do take 1/2 dose of your long acting insulin and monitor your blood sugar at least every 6 to 8 hours. Stop using the ondansetron. For today and maybe tomorrow use the prochlorperazine suppositories. If doing better you may switch to the oral prochlorperazine. Once tolerating liquids and bland diet without difficulty should probably begin taking the metoclopramide which may help with your gastroparesis and emptying of the stomach. Follow-up with primary care next week. Return to ED for persistent vomiting, fever, bloody vomit, worsening abdominal pain, other concerns. Referrals: CARLY PADGETT MD [Primary Care Provider] - [facility] General Mode of arrival: ambulatory . Date/Time Provider Initiated Documentation: 06/05/24 00:47 . Limitations to Documentation: no limitations . Information obtained by: patient, family, RN notes reviewed and old records reviewed . HPI Narrative: Patient returns to ED with persistent nausea and vomiting. Patient seen by me overnight on and admitted for observation. She was discharged on the . She returned to the ED on the with recurrent nausea and vomiting, discharged home from ED. Returns tonight with recurrent nausea and vomiting. Has been taking the prescribed ondansetron. Denies any fever. Denies any hematemesis. Complains of weakness and pain all over. She is not having bowel movements but is passing gas. reporting that she typically requires a 2 or 3-day hospital admission to get things under control. Related Data Home Medications ?Medication ?Instructions ?Recorded ?Confirmed blood-glucose sensor ([employer] G6 #6 ea 05/03/22 06/05/24 Sensor device) lidocaine 5 % topical patch 1 patch topical DIRECTED 05/25/22 06/05/24 (Lidoderm) omeprazole 40 mg capsule,delayed 40 mg PO DAILY #30 caps 11/09/22 06/05/24 release duloxetine 40 mg capsule,delayed 40 mg PO DAILY 05/24/23 06/05/24 release gabapentin 300 mg tablet 300 - 900 mg PO DIRECTED 09/08/23 06/05/24 insulin aspart U-100 100 unit/mL 15 unit subcut TID 01/18/24 06/05/24 (3 mL) subcutaneous pen (Novolog FlexPen U-100 Insulin aspart) insulin glargine 100 unit/mL (3 50 unit subcut HS 01/18/24 06/05/24 mL) subcutaneous pen (Lantus Solostar U-100 Insulin) nortriptyline 10 mg capsule 10 mg PO QHS 02/27/24 06/05/24 honey 80 % topical gel (MediHoney 1 applic topical DAILY PRN 05/31/24 06/05/24 (honey)) metoclopramide HCl 10 mg tablet 10 mg PO QAC #60 tabs 06/05/24 (Reglan) prochlorperazine 25 mg rectal 25 mg WA BID PRN #12 ea 06/05/24 suppository prochlorperazine maleate 10 mg 10 mg PO TID PRN #20 tabs 06/05/24 tablet Previous Rx's ?Medication ?Instructions ?Recorded blood-glucose sensor (Dexcom G6 #6 ea 05/03/22 Sensor device) omeprazole 40 mg capsule,delayed 40 mg PO DAILY #30 caps 11/09/22 release metoclopramide HCl 10 mg tablet 10 mg PO QAC #60 tabs 06/05/24 (Reglan) prochlorperazine 25 mg rectal 25 mg WA BID PRN #12 ea 06/05/24 suppository prochlorperazine maleate 10 mg 10 mg PO TID PRN #20 tabs 06/05/24 tablet Allergies Allergy/AdvReac Type Severity Reaction Status Date / Time ibuprofen (From Advil) Allergy Severe Anaphylaxis Verified 06/05/24 00:52 pomegranate Allergy Severe Anaphylaxis Verified 06/05/24 00:52 citalopram AdvReac Severe Bodily harm Verified 06/05/24 00:52 General ARNOLD: 3 Review of Systems Narrative: Per HPI Exam Narrative Exam Narrative: Const: WDWN female in NAD. VS per triage. HEENT: NC/AT. Normal facial exam. Neck: Supple. Trachea midline. Lungs: Normal respiratory effort. Lungs are clear. Cor: RRR without murmur. Good radial pulses. GI: Soft/ND/NT. Neuro: A+O x 3. Normal speech, mentation, gait. Cranial nerves II - XII grossly intact. No gross motor or sensory deficit. Ext: No C/C/E. Medical Decision Making Patient returns to ED with recurrent and persistent nausea and vomiting. She is afebrile and denies fever at home. Complains of weakness and pain all over especially abdomen and back but has a benign abdominal exam. Denies any marijuana use since before [place]. Ondansetron is not controlling symptoms at home. EKG is sinus tachycardia with normal axis and intervals, no acute ST changes, unchanged from previous per my read. IV established and fluid bolus given, repeat laboratory studies sent. Fingerstick blood sugar on arrival to 95. IV droperidol ordered. Patient's laboratory studies continue to show a leukocytosis. VBG with a normal pH and bicarb. Chemistries with some minor abnormalities, anion gap 13.5 and glucose of 300. I do not believe that she is in DKA given the normal pH. Liver function and lipase remain fine. Patient with slight improvement with the droperidol but still nauseated and uncomfortable. Liter of LR hung at 150 an hour and 10 mg of prochlorperazine given. This morning at 6 AM she is actually feeling much better. She is tolerating kirsten stan. Had a long discussion regarding discharge versus admission. She seemingly gets better relatively quickly once in the ED. However, going home on ondansetron is clearly not working. Therefore, we will discontinue ondansetron. Will provide prescription for prochlorperazine suppositories and tablets as this seemed to work better for her this time around. Clear liquid diet only over the next 24 hours. Did recommend taking half of her long-acting insulin and checking her blood sugars 2 or 3 times throughout the day. Also recommend taking metoclopramide on a regular basis given her diagnosis of gastroparesis. Patient and are in agreement with plan. Return precautions provided. Medical Records Medical records reviewed: Yes I reviewed the patient's medical records. Lab Data Lab results reviewed: Yes I reviewed the patient's lab results. 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 Maternal Cousin Breast cancer Maternal Cousin Breast cancer Maternal Cousin Breast cancer Social History Smoking/Tobacco Use Status: Current every day Tobacco Type: cigarettes Smoking risk assessment performed?: Yes Alcohol Intake: current Alcohol Intake frequency: holidays/special occasions only Drug use: Daily Substance use type: marijuana Details: states has not smoked weed since she got sick on [place] Housing: house Do you feel safe at home: Yes Do you feel safe in your relationship?: Yes
[2024-06-05] MEDS: Normal Saline 1,000 ML 1000 ML IV (01:05)
[2024-06-05 01:12] LABS: BE (Venous) 1 mmol/L (-2-3); HCO3 (Venous) 26 mmol/L (23-28); O2 Sat (Venous) 77 %; TCO2 (Venous) 23 mmol/L (24-29); pCO2 (Venous) 42 mmHg (41-51); pO2 (Venous) 39 mmHg
[2024-06-05 01:13] LABS: Abs Immature Grans 0.08 10^3/uL (0.0-0.06); Absolute Lymphocyte Count 3.24 10^3/uL (1.2-3.4); Absolute Monocyte Count 1.34 10^3/uL (0.1-0.8); Absolute Neutrophil Count 17.13 10^3/uL (1.2-6.7); Basophils % 0.2 %; Eosinophils % 0.3 %; HCT 43.4 % (36.0-46.0); HGB 15.4 g/dL (11.2-15.7); Immature Grans % 0.4 %; Lymphocytes % 14.8 %; MCH 31.6 pg (27.0-33.0); MCHC 35.5 % (32.0-36.0); MCV 89 fL (80-95); MPV 9.3 fL (8.0-11.0); Monocytes % 6.1 %; Neutrophils % 78.2 %; Platelet Count 395 10^3/uL (130-400); RBC 4.88 10^6/uL (3.93-5.22); RDW-SD 39.8 fL
[2024-06-05 01:14] LABS: Absolute Basophil Count 0.04 10^3/uL (0.0-0.2); Absolute Eosinophil Count 0.07 10^3/uL (0.0-0.7)
[2024-06-05 01:24] LABS: HCG Qual (Serum) Negative
[2024-06-05 01:33] LABS: ALT 23 U/L (14-59); AST 18 U/L (15-37); Albumin 3.5 g/dL (3.4-5.0); Alkaline Phosphatase 127 U/L (46-116); Anion Gap 13.5 mmol/L (3-11); BUN 6 mg/dL (7-18); Bilirubin, Total 0.69 mg/dL (0.2-1.0); CO2 25.5 mmol/L (21.0-32.0); CREATININE 0.8 mg/dL (0.55-1.02); Calcium 9.4 mg/dL (8.5-10.1); Chloride 94 mmol/L (98-107); Estimated GFR 96.06 (mL/min/1.73m2); Glucose 303 mg/dL (74-106); Lipase 32 U/L (<78); Magnesium 1.7 mg/dL (1.8-2.4); Potassium 3.7 mmol/L (3.5-5.1); Sodium 133 mmol/L (136-145); Total Protein 7.6 g/dL (6.4-8.2)
[2024-06-05] MEDS: Prochlorperazine 10 MG/2 ML VIAL IVP (02:03)
[2024-06-05] MEDS: Lactated Ringers 1,000 ML 150 ML IV (02:04)
[2024-06-05] MEDS: Famotidine 20 MG/2 ML VIAL IVP (02:50)
== END 2024-06-05 06:21 | disposition home or self-care (01) ==
PROVIDERS: Emergency Provider Emergency Medicine; PCP Internal Medicine
DX: R11.10 Vomiting, unspecified (principal); E11.40 Type 2 diabetes mellitus with diabetic neuropathy, unspecified; R00.0 Tachycardia, unspecified; F17.210 Nicotine dependence, cigarettes, uncomplicated; Z79.4 Long term (current) use of insulin; Z86.718 Personal history of other venous thrombosis and embolism; Z79.899 Other long term (current) drug therapy
CPT/HCPCS: 36415; 80053; 82805; 82962; 83690; 93005; 96361; 96374; 96375; 99285; 83735; 84703; 85025; 93010; J0780; J1790; J3490

== ENCOUNTER 2025-03-20 10:14 | Emergency (ER) | payer SELFPAY ==
[2025-03-20 10:22] VITALS: BP 116/78; PULSE 141; RESP 18; TEMP 36.6; O2SAT 95
--- NOTE | 2025-03-20 10:45 | DI.US_ITS ---
Exam(s) US LOWER EXTREMITY VENOUS RT EXAM: US LOWER EXTREMITY VENOUS RT CLINICAL HISTORY: Leg pain, hx of DVTs TECHNIQUE: Right lower extremity venous ultrasound performed using grayscale, color-flow, and spectral Doppler analysis. COMPARISON: No exams were available for comparison FINDINGS: The right common femoral, femoral and popliteal veins demonstrate normal compressibility, augmentation, and color Doppler. The posterior tibial veins are patent. The saphenofemoral junction is unremarkable. There is no evidence of a Gaona cyst. The soft tissues are unremarkable. IMPRESSION: No evidence of a right lower extremity DVT. DATA REPOSITORY:
--- NOTE | 2025-03-20 10:45 | DI.RAD_ITS ---
Exam(s) XR FOOT RT COMPLETE EXAM: XR FOOT RT COMPLETE CLINICAL HISTORY: 1st and second toe swelling. TECHNIQUE: 2D digital imaging was performed of the right foot. Three images were obtained. AP, oblique and lateral views were obtained. COMPARISON: CR XR FOOT RT COMPLETE from 09/12/2021 FINDINGS: BONES: No acute fracture is present. No bony destructive lesion is seen. There is a small enthesophyte at the posterior calcaneus. There is a large plantar calcaneal spur. JOINTS: No dislocation present. SOFT TISSUE: Normal. IMPRESSION: No acute abnormality. DATA REPOSITORY: RADIATION DOSE DELIVERED:
--- NOTE | 2025-03-20 10:46 | W.ED.GENAD ---
Discharge Plan Disposition Patient Disposition: Home Condition: Stable Discharge Details Clinical Impression: Diabetic infection of right foot Primary Care Provider: CARLY PADGETT ED Provider: Katiana Adams Home Meds and New Rx's Prescriptions: New cephalexin 500 mg capsule 500 mg PO BID 10 Days Qty: 20 0RF Rx Instructions: Take one capsule by mouth twice daily x 10 days doxycycline hyclate 100 mg capsule 100 mg PO BID 10 Days Qty: 20 0RF Rx Instructions: Take 1 capsule by mouth twice daily for 10 days Continued omeprazole 40 mg capsule,delayed release(DR/EC) 40 mg PO DAILY Qty: 30 5RF nortriptyline 10 mg capsule 10 mg PO QHS gabapentin 300 mg tablet 300 - 900 mg PO DIRECTED Rx Instructions: 300 qam 1200 hs insulin glargine [Lantus Solostar U-100 Insulin] 100 unit/mL (3 mL) insulin pen 50 unit SUBCUT HS insulin aspart U-100 [Novolog FlexPen U-100 Insulin] 100 unit/mL (3 mL) insulin pen 15 unit SUBCUT TID Patient Comments: adjusted to carbs and pre-meal BS, up to 15u SUBCUTANEOUSLY THREE TIMES DAILY WITH MEALS lidocaine [Lidoderm] 5 % adhesive patch,medicated 1 patch topical DIRECTED Patient Comments: PLACE 1 PATCH ONTO THE SKIN DAILY. PATCHE(S) MAY REMAIN IN PLACE FOR UP TO 12 HOURS IN ANY 24-HOUR PERIOD prochlorperazine 25 mg suppository 25 mg IN BID PRNQty: 12 0RF prochlorperazine maleate 10 mg tablet 10 mg PO TID PRNQty: 20 0RF metoclopramide HCl [Reglan] 10 mg tablet 10 mg PO QAC Qty: 60 0RF Rx Instructions: take 30 minutes before meals and at bedtime tramadol 50 mg tablet 50 mg PO Q8H PRN Patient Comments: Take 1 Tablet by mouth EVERY 6 HOURS NEEDED FOR PAIN (Max 4/day) (DME) Dexcom G6 Sensor Device See Rx Instructions .Route Qty: 6 0RF Rx Instructions: As directed MediHoney (honey) 80 % gel 1 applic topical DAILY PRN Discharge Instructions Instructions: Diabetes and infections, Foot Care for Diabetics Additional Instructions: No evidence of DVT or blood clot in your leg, no evidence for bony abnormality on the x-rays. I am concerned for a beginning infection of your 1st and 2nd toes. Please take the antibiotics twice daily for the next 10 days. Please follow-up with your mixed crop and livestock farm worker or primary care provider within the next 3 to 5 days for further evaluation and care. Follow up with primary care provider in 3-5 days. Return to ED sooner if any worsening or concerns. Referrals: CARLY PADGETT MD [Primary Care Provider, Medicine] - 3 days Referral Note: ER follow-up, call for an appointment Clinical Impression: Diabetic infection of right foot Discharge Data Discharge Date/Time-TO BE ENTERED AT DEPARTURE: 03/20/25 12:24 HPI General Mode of arrival: ambulatory. Date/Time Provider Initiated Documentation: 03/20/25 10:25. Limitations to Documentation: no limitations. Information obtained by: patient, RN notes reviewed and old records reviewed. HPI Narrative: 40-year-old female presents to the ER with a chief complaint of right great toe and second toe erythema, tenderness which she noticed this morning. Patient is a insulin-dependent diabetic and does have a history of left toe amputations. She reports that she noticed some erythema around the nailbed of her great toe, discoloration warmth and tenderness to her great and second toe. She has what looks like discoloration and blisters noted distally. She also is complaining of some right calf pain does have a history of DVTs and is concerned for DVT. Denies any fever or chills. She reports that she is currently living in [place] and has recently moved from here to there. She is getting set up with a mixed crop and livestock farm worker out there. Past medical history include DVT, gastroparesis, osteomyelitis, IBS kidney stones depression diabetic neuropathy and insulin-dependent diabetes. Related Data Home Medications ?Medication ?Instructions ?Recorded ?Confirmed blood-glucose sensor (Dexcom G6 #6 ea 05/03/22 03/20/25 Sensor device) lidocaine 5 % topical patch 1 patch topical DIRECTED 05/25/22 03/20/25 (Lidoderm) omeprazole 40 mg capsule,delayed 40 mg PO DAILY #30 caps 11/09/22 03/20/25 release gabapentin 300 mg tablet 300 - 900 mg PO DIRECTED 09/08/23 03/20/25 insulin aspart U-100 100 unit/mL 15 unit subcut TID 01/18/24 03/20/25 (3 mL) subcutaneous pen (Novolog FlexPen U-100 Insulin aspart) insulin glargine 100 unit/mL (3 50 unit subcut HS 01/18/24 03/20/25 mL) subcutaneous pen (Lantus Solostar U-100 Insulin) nortriptyline 10 mg capsule 10 mg PO QHS 02/27/24 03/20/25 honey 80 % topical gel (MediHoney 1 applic topical DAILY PRN 05/31/24 03/20/25 (honey)) metoclopramide HCl 10 mg tablet 10 mg PO QAC #60 tabs 06/05/24 03/20/25 (Reglan) prochlorperazine 25 mg rectal 25 mg IN BID PRN #12 ea 06/05/24 03/20/25 suppository prochlorperazine maleate 10 mg 10 mg PO TID PRN #20 tabs 06/05/24 03/20/25 tablet cephalexin 500 mg capsule 500 mg PO BID Cellulitis 10 days 03/20/25 #20 caps doxycycline hyclate 100 mg capsule 100 mg PO BID Foot cellulitis 10 03/20/25 days #20 caps tramadol 50 mg tablet 50 mg PO Q8H PRN 03/20/25 03/20/25 Previous Rx's ?Medication ?Instructions ?Recorded blood-glucose sensor ([employer] G6 #6 ea 05/03/22 Sensor device) omeprazole 40 mg capsule,delayed 40 mg PO DAILY #30 caps 11/09/22 release metoclopramide HCl 10 mg tablet 10 mg PO QAC #60 tabs 06/05/24 (Reglan) prochlorperazine 25 mg rectal 25 mg IN BID PRN #12 ea 06/05/24 suppository prochlorperazine maleate 10 mg 10 mg PO TID PRN #20 tabs 06/05/24 tablet cephalexin 500 mg capsule 500 mg PO BID Cellulitis 10 days 03/20/25 #20 caps doxycycline hyclate 100 mg capsule 100 mg PO BID Foot cellulitis 10 03/20/25 days #20 caps Allergies Allergy/AdvReac Type Severity Reaction Status Date / Time ibuprofen (From Advil) Allergy Severe Anaphylaxis Verified 03/20/25 10:32 pomegranate Allergy Severe Anaphylaxis Verified 03/20/25 10:32 citalopram AdvReac Severe Bodily harm Verified 03/20/25 10:32 General Stated Complaint: Vascular ARNOLD: 3 Review of Systems All systems reviewed & are unremarkable except as noted in HPI and below Integumentary/Breasts Skin/Breast: Reports as per HPI, Reports erythema, Reports skin pain and Reports skin swelling Exam Extrem Ankle/foot/toe images:  1. Erythema 2. Red streaking 3. Erythema and blister 4. Blistering and discoloration Course Vital Signs Vital signs: Vital Signs Temperature 36.6 C 03/20/25 10:22 Pulse 141 H 03/20/25 10:22 Respiratory Rate 18 03/20/25 10:22 Blood Pressure 116/78 03/20/25 10:22 Pulse Oximetry 95 03/20/25 10:22 Temperature 36.6 C 03/20/25 10:22 Temperature Source Tympanic 03/20/25 10:22 Pulse 141 H 03/20/25 10:22 Respiratory Rate 18 03/20/25 10:22 Blood Pressure 116/78 03/20/25 10:22 Pulse Oximetry 95 03/20/25 10:22 Oxygen Delivery Method Room Air 03/20/25 10:22 Oxygen Flow Rate 0 03/20/25 10:22 Comment pt state her normal at rest HR is 120 03/20/25 10:22 Medical Decision Making 40-year-old female presents to the ER with a chief complaint of right great toe and second toe erythema, tenderness which she noticed this morning. Patient is a insulin-dependent diabetic and does have a history of left toe amputations. She reports that she noticed some erythema around the nailbed of her great toe, discoloration warmth and tenderness to her great and second toe. She has what looks like discoloration and blisters noted distally. She also is complaining of some right calf pain does have a history of DVTs and is concerned for DVT. Denies any fever or chills. She reports that she is currently living in [place] and has recently moved from here to there. She is getting set up with a mixed crop and livestock farm worker out there. Past medical history include DVT, gastroparesis, osteomyelitis, IBS kidney stones depression diabetic neuropathy and insulin-dependent diabetes. X-ray right foot and right ultrasound venous ordered. Will give cephalexin and doxycycline. I am concerned for diabetic toe infection. No evidence for right lower extremity DVT. XR foot unremarkable, no osteomyelitis, no foreign body no fracture. Patient was placed on cephalexin and doxycycline and encouraged to follow-up with her mixed crop and livestock farm worker and PCP. She verbalized understanding. This text was generated using [employer] dictation system, please disregard any oddities of phrase or misspellings. Quality:SDOH Health Related Social Needs: Health related social needs details none PFSH All Active Problems (Updated 03/20/25 @ 12:02 by Katiana Adams NP) Diabetic infection of right foot (Acute) Back pain (Acute) Phantom limb pain (Acute) Contracture, plantar fascia (Acute) Neuropathic ulcer of left foot with fat layer exposed (Acute) Abnormal CT of the abdomen (Acute) Gallbladder sludge (Acute) Intractable nausea and vomiting (Acute) Corns and callosities (Acute) Tobacco abuse (Acute) Medical History Cannabinoid hyperemesis syndrome DVT (deep venous thrombosis) Gastroparesis Ulcerative esophagitis History of osteomyelitis IBS (irritable bowel syndrome) History of kidney stones Suicide attempt Anxiety and depression Diabetic neuropathy Diabetes Type 1, per patient she said she was told she had diabetes type 2. 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 Maternal Cousin Breast cancer Maternal Cousin Breast cancer Maternal Cousin Breast cancer Social History Smoking/Tobacco Use Status: Current every day Tobacco Type: cigarettes Smoking risk assessment performed?: Yes Alcohol Intake: current Alcohol Intake frequency: holidays/special occasions only Drug use: Daily Substance use type: marijuana Housing: house Do you feel safe at home: Yes Do you feel safe in your relationship?: Yes
[2025-03-20] MEDS: Doxycycline Hyclate 100 MG CAP PO (10:56)
[2025-03-20] MEDS: Cephalexin 500 MG CAP PO (10:56)
[2025-03-20 10:57] VITALS: RESP 16
[2025-03-20 12:13] VITALS: BP 116/78; PULSE 131; RESP 16; O2SAT 98
== END 2025-03-20 12:24 | disposition home or self-care (01) ==
PROVIDERS: Emergency Provider Registered Nurse Emergency; PCP Internal Medicine
DX: L08.9 Local infection of the skin and subcutaneous tissue, unspecified (principal); E11.69 Type 2 diabetes mellitus with other specified complication
CPT/HCPCS: 99284 ×2; 36416; 82962; 36415; 73630; 93971